=== PATIENT | female | born 1935 | race Caucasian/White ===

== ENCOUNTER → 2016-06-30 | Outpatient (CLI) | payer MEDICARE, OTHER, MEDICAID ==
[~2016-06-30] MED LIST: AC500T; ACHD5005 PO; ALPR.25T; ALPR0.254 PO; ALPR0.2550 PO; ALPR2TAB4; AMIO200T10; AMIO200T2 PO; AMIODARONE 200 MG; AMLO10TA82 PO; AMLO5TAB2; AMLO5TAB2 PO; ASP325T PO; ASP81TEC PO; ASPI-892 PO; ASPIRIN; ATEN50TA; ATEN50TA PO; BSP10T PO; BUSP15TA60 PO; BUSPIRONE HCL 15 MG PO; BUTA1CAP45 PO; CEFU500T5 PO; CHOL2000 PO; CHOL5000 PO; CLCX200C; CPR500T; CYAN100053 INJ; CYCL10TA9; CYCL10TA9 PO; DABI150C5 PO; DIGO125T PO; DNPZ10T; DNPZ10T PO; FRSM20T; FURO20TA4; FURO40TA4 PO; HYDR-3812 PO; IBP600T1; LEVO125T6 PO; LEVO150T6 PO; LEVO50TA4; LEVO50TA4 PO; LIOT5TAB3 PO; LOSA100T16; LOSA100T16 PO; LOSA100T7 PO; LSRT50T; LVT.05T; MECL-106 PO; MECL-124; MECL-124 PO; MELO-195 PO; METO-333 PO; METO10TA3; METO50TA2 PO; METO5TAB75 PO; NF-LOVAZAC PO; NFPRILOC40 PO; OMEG1CAP PO; OMEP-10; OMEP20CA6; OMEP40CA36 PO; ONDA4TAB8 PO; PANT40TA2 PO; POTA20TA15 PO; PRM25T; PROP1TAB77; SERT100T; SERT100T PO; SERT50TA9 PO; SOTA120T PO; SOTA120T23 PO; SUCR1TAB PO; SULF1TAB38 PO; TPR25T PO; TRAM50TA2 PO; TRM50T PO; TRZ50T PO; TYLENOL ES; WRF2.5T; WRF5T
--- OUTSIDE RECORDS SUMMARY | 2016-06-30 07:38 | XMS REPORT | Continuity of Care Document ---
Author Author [facility] Organization [facility] Address Unknown Phone Unavailable Care Team Providers Care Shuttle Driver Name Role Phone Dagmar Lopes PCP [phone] Source Comments Some departments are not documenting in the electronic medical record. If you do not see the information that you expected, contact Release of Information in the Health Information Management department at [phone] for further assistance in locating additional records.[facility] Active Allergies and Adverse Reactions Allergen Noted Date Severity Reactions Comments Codeine 12/01/2008 NAUSEA AND VOMITING Morphine 12/01/2008 NAUSEA AND VOMITING Pcn 12/31/2015 Low UNKNOWN Current Medications Prescription Sig. Disp. Refills Start End Date Status Date donepezil (ARICEPT) 10 mg Take 10 mg by mouth At Active tablet Bedtime Daily. alprazolam (XANAX) 0.25 Take 0.25 mg by mouth Active mg tablet twice daily as needed. losartan (COZAAR) 100 mg Take 100 mg by mouth Active tablet Daily. meloxicam(+) (MOBIC) 15 Take 15 mg by mouth Active mg tablet daily. traMADol (ULTRAM) 50 mg Take 50 mg by mouth every Active tablet 6 hours as needed. [place]-3 Acid Ethyl Esters Take 1 Cap by mouth four 360 Cap 2 04/11/20 Active (LOVAZA) 1 gram cap times daily. 12 Calcium Carbonate-Vitamin Take 1 Tab by mouth Active D3 (VITAMIN D-3) daily. 180-5,000 mg-unit Tab sertraline (ZOLOFT) 50 mg Take 50 mg by mouth Active tablet daily. potassium chloride SR Take 20 mEq by mouth Active (K-DUR) 20 mEq tablet daily. sucralfate (CARAFATE) 1 Take 1 g by mouth at Active gram tablet bedtime daily. furosemide (LASIX) 40 mg Take 40 mg by mouth Active tablet daily. NYSTATIN (BULK) MISC Use 200 mg as directed as Active Needed. meclizine (ANTIVERT) 25 Take 25 mg by mouth as Active mg tablet Needed. metoprolol (LOPRESSOR) 25 Take 0.5 Tabs by mouth 180 Tab 3 07/08/19 Active mg tablet twice daily. 14 digoxin (LANOXIN) 125 mcg Take 1 Tab by mouth every 90 Tab 07/08/19 Active tablet 48 hours. 14 amLODIPine (NORVASC) 5 mg Take 5 mg by mouth daily. Active tablet dabigatran (PRADAXA) 150 Take 150 mg by mouth Active mg capsule twice daily. levothyroxine (SYNTHROID) Take 150 mcg by mouth Active 150 mcg tablet daily. BUSPIRONE HCL (BUSPAR PO) Take 15 mg by mouth twice Active daily. liothyronine (CYTOMEL) 5 Take 5 mcg by mouth twice Active mcg tab daily. topiramate (TOPAMAX) 25 Take 25 mg by mouth twice Active mg tablet daily. Erythromycin 250 mg cpDR Take 1 Cap by mouth three Active times daily before meals. pantoprazole DR Take 40 mg by mouth twice Active (PROTONIX) 40 mg tablet daily. promethazine (PHENERGAN) Take 25 mg by mouth every Active 25 mg tablet 6 hours as needed for Nausea. amiodarone (CORDARONE) Take 0.5 Tabs by mouth 45 Tab 3 12/31/19 Active 200 mg tablet daily. 16 Active Problems Problem Noted Date Chest pain 07/01/2014 Overview: 05/21/14: Left heart cath: LV pressure 125/11, end-diastolic pressure of 11, aortic pressure 112/50, mean of 75. Ascending thoracic aortic aneurysm measuring up to 4.6cm. 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 Small vessel disease distally in the LAD and right coronary artery. Normal left vent size and systolic function. EF 60%. 05/08/14: Echo 2D: Mild left vent hypertrophy noted diffusely. Slightly prominent left vent compared to the previous study of 2011. Left atrial dilation. Mild to moderate aortic regurg. Mild mitral regurg and mild tricuspid regurg. Estimated pulmonary artery pressure of 35mmHg. 05/05/14: Stress Test: Tolerated, Mild reversible ischemia at the basal to mid inferolateral wall. Normal left vent size with good EF 65% Hiatal hernia 03/13/2013 Bradycardia 10/18/2011 Overview: 10-18-11 Medtronic dual chamber PPM implanted by Dr. Sheila Peralta Sotalol initiation 10-18-11 Near syncope 09/16/2011 Overview: 09/14/11 hospital admission to [facility] in [place], [place]. Reveal device 9529 implanted by Allyn Petit MD. Cardiac device in situ, other 08/18/2011 Overview: 09/16/11 Reveal device 9529, Medtronic. Hypertension Hyperlipidemia Overview: 09/14/2011 Lipid Profile: Cholesterol: 171, Triglyceride: 132, HDL: 39, LDL: 106 Paroxysmal atrial fibrillation (HCC) Overview: Hx of brief AF, CHADS score 2, ASA Hypothyroidism Dementia Anxiety Resolved Problems Problem Noted Date Resolved Date Chest pain 09/16/2011 10/18/2011 Overview: 2002 Cardiac cath: mLAD 30%; mRCA 40-50%, diffuse plaques also. Medical treatment, started Plavix. 09/14/11 Admitted to [facility] ( [facility] [place]) with CP & palpitations. Stress test Lexiscan Myoview) showed no ischemia. EF 65% Echocardiogram: EF 70%. Mild LVH. La size 4.3cm. Mitral valve with myxomatous degeneration, mild MR. Palpitations 10/20/2011 Lower GI bleeding 10/18/2011 Most Recent Encounters Date Type Specialty Providers Description 06/23/2016 Documentation Cardiology Shalini Tinajero Labs Only - CMP, Lipid 06/15/2016 Telephone Cardiology Belia Valero RN Patient Questions About Implanted Device 05/17/2016 Telephone Cardiology Annie Marie LPN Remote Monitoring Questions - Would like results 04/01/2016 Hospital Cardiology Marty Trejo MD Encounter Social History Tobacco Use Types Packs/Day Years Used Date Never Smoker Smokeless Tobacco: Never Used Alcohol Use Drinks/Week oz/Week Comments No Last Filed Vital Signs Vital Sign Reading Time Taken Blood Pressure 110/70 12/31/2015 10:53 AM CDT Pulse 71 12/31/2015 10:53 AM CDT Temperature 36.5 C (97.7 F) 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 Respiratory Rate 18 03/07/2013 2:25 PM CDT Height 1.676 m (5' 5.98") 12/31/2015 10:53 AM CDT Weight 84.052 kg (185 lb 4.8 oz) 12/31/2015 10:53 AM CDT Body Mass Index 29.92 12/31/2015 10:53 AM CDT Oxygen Saturation 98% 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 Plan of Care Date Type Specialty Providers Description 07/11/2016 Appointment Cardiology Marty Trejo MD [address] [employer] [facility] [address] [place] [address] [phone] (Fax) 11/18/2016 Appointment Cardiology Marty Trejo MD [address] [employer] [facility] [address] [place] [address] [phone] (Fax) 11/18/2016 Appointment Cardiology Marty Trejo MD [address] [employer] [facility] [address] [place] [address] [phone] (Fax) Health Maintenance Due Date Last Done Comments Physical (Comprehensive) 1941 Exam Pertussis Vaccine 1945 Tetanus Vaccine 1951 Shingles Vaccine 1994 Osteoporosis Screening 1999 Prevnar/Pneumovax (#1) 1999 Influenza Vaccine 02/18/2016 Results from Last 3 Months LIVER FUNCTION PANEL (06/22/2016) Component Value Range Total Bilirubin 1.1 Bilirubin, Direct 0.2 Albumin 4.2 Alk Phosphatase 54 AST (SGOT) 24 ALT (SGPT) 30 5-26 Total Protein 7.0 Specimen Blood DEVICE EVALUATION - REMOTE [facility] (04/14/2016 11:11 AM) Component Value Range Generator Model # REVO MRI RVDR01 Generator Serial # [id number] Generator Implnat Date 10/18/2011 FÉLIX/EOL Indicator ENVIRONMENTAL REMEDIATION SPECIALIST=2.81V Generator Professor Of Biblical Studies Medtronic Generator Investigational No Wireless Generator No Device Type DDD-PM Atrial Lead Model # CAPSUREFIX MRI LV SensorsSCAN 5086-52cm Atrial Lead Serial # [id number] Atrial Lead Implant Date 10/18/2011 Atrial Lead Diaph. 10 Stimulation Atrial Lead Professor Of Biblical Studies Medtronic Atrial Lead No Investigational Atrial Lead Fixation active fixation Atrial Lead Location right atrial appendage Atrial Lead Pin Connector IS1 Atrial Lead Polarity Bipolar RV Lead Model # CAPSUREFIX Inivata SURESCAN 5086-58cm RV Lead Serial # [id number] RV Lead Implant Date 10/18/2011 RV Lead Diaph. 10 Stimulation RV Lead Professor Of Biblical Studies Medtronic RV Lead Investigational No RV Lead Fixation active fixation RV Lead Location RV low septum RV Lead Pin Connector ICD IS1 Device Mode AAIR/DDDR Lower Rate Limit 70 Upper Rate Limit 130 Sensor Rate Limit 130 Pace AV Delay 180 Sense AV Delay 150 VT Monitor 150 Mode Switch (bpm) >150 High V Rate Detect >150 Mode Switch Status On Device Implanted By Ernesto Sosa M.D. Pacemaker Dependant No Date of Last Programming 12/31/15 Next Programming Check Jun 2016 Due Date of Last 12/31/15 Interrogation HF Patient No Date of Last Remote Check 04/01/16 Next Remote Check Due 06/2016 Remote Monitoring? Yes EP Device Followed by Dr. Trejo Name EP Device Followed By MAC Device [place] Carelink Express Transmitter Compatible Remote Check? Yes Narrative Current monitoring period 04/01/16 - 07/01/16 [04/14/2016 12:30:46 PM - NIKKY ALTAMIRANO] Scheduled carelink remote transmission received 04/01/16, reviewed today. Dual chamber ICD interrogation. Presenting EGM shows AP VS at 90 bpm. Full report uploaded for more detailed review as needed (see attached) Events noted 12/31/15: Atrial: 20 AT/AF monitored episodes and 12 treated episodes (successfully terminated 91.7%), <0.1% burden. Most recent on 03/31/16 and longest on 01/27/16 lasting 15 min 36. Markers/EGM's appear to show AFib/ Flutter, some AT with V rates <100bpm 95% of time. Med list shows Amio and Pradaxa. Amio dose decreased in December d/t elevated LFT.- Will need to monitor AF [place]. Ventricular:none Yearly OV scheduled sometime in December 2016 with MPE. Will route to MPE for review and co-sign. [04/14/2016 2:42:55 PM - JYOTI KUMAR]
--- NOTE | 2016-06-30 09:24 | Diagnostic Imaging Report ---
EXAMINATION: PA and lateral views of the chest. INDICATION: Check pacemaker before performing MRI. FINDINGS: The pacemaker has markers are compatible with MRI safe pacemaker as well as MRI safe leads. Confirmed with the [employer] company rep. There is an increased indeterminate opacity in the upper right lung. The left lung appears clear. The heart size is mildly enlarged. No effusion. The mediastinum and ysabel appear unremarkable. IMPRESSION: Indeterminate opacity in the upper right lung. CT evaluation is recommended. The findings were discussed with nurse practitioner Brianna Otoole by Dr. Ludwig at time of dictation. Dictated by: Dictated on workstation # [id number]
--- NOTE | 2016-06-30 12:37 | Diagnostic Imaging Report ---
PROCEDURE: MRI right joint lower extremity without contrast. TECHNIQUE: Multiplanar, multisequence non contrast-enhanced MRI of the right ankle was accomplished. INDICATION: Ankle pain and swelling. COMPARISONS: None available. FINDINGS: TENDONS: Mild tendinopathy of the distal Achilles tendon which remains intact. Peroneus longus tendon is intact. Chronic partial-thickness split longitudinal tear of the peroneus brevis, which is otherwise intact distally. Posterior tibialis, flexor digitorum longus, and flexor hallucis longus are intact. The anterior tibialis, extensor hallucis longus, extensor digitorum longus, and peroneus tertius tendons are intact. LIGAMENTS: Anterior and posterior tibiofibular ligaments are intact. Anterior talofibular, calcaneofibular, and posterior talofibular ligaments are normal. Medial deltoid ligamentous complex is normal. The spring ligament is mildly thickened but remains intact. BONES AND CARTILAGE: No osteochondral lesion of the talar dome. Mild degenerative changes in the posterior subtalar facet. [id number] degenerative changes at the second tarsometatarsal articulation with subchondral cystic change and proliferative osteophytosis. SOFT TISSUES: Mild low-intensity thickening of the central insertional cord of the plantar fascia indicative of chronic plantar fasciitis. No abnormal soft tissue scar/fibrosis within the tarsal canal/sinus tarsi or tarsal tunnel. No ankle joint effusion. Nonspecific subcutaneous soft tissue edema and swelling on the lateral ankle which corresponds to patient's area of concern. IMPRESSION: 1. 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 No associated tenosynovitis. 2. Nonspecific soft tissue swelling and subcutaneous edema on the lateral ankle, which corresponds to area of concern. 3. 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 There are less advanced degenerative changes at the other tarsometatarsal joints as well as in the posterior subtalar facet. Dictated by: Dictated on workstation # [id number]
== END ==
LOC: RAD 07:34
PROVIDERS: ATTEND Podiatrist
DX: D17.79 Benign lipomatous neoplasm of other sites (principal)
CPT/HCPCS: 71020; 73721

== ENCOUNTER → 2016-07-05 | Outpatient (CLI) | payer MEDICARE, OTHER, MEDICAID ==
--- OUTSIDE RECORDS SUMMARY | 2016-07-05 09:20 | XMS REPORT | Continuity of Care Document ---
Author Author [facility] Organization [facility] Address Unknown Phone Unavailable Care Team Providers Care Highway Worker Name Role Phone Dagmar Lopes PCP [phone] Source Comments Some departments are not documenting in the electronic medical record. If you do not see the information that you expected, contact Release of Information in the Health Information Management department at [phone] for further assistance in locating additional records.[facility] Active Allergies and Adverse Reactions Allergen [...] every Active tablet 6 hours as needed. [place]-3 Acid Ethyl Esters Take 1 Cap by [...] syncope 09/16/2011 Overview: 09/14/11 hospital admission to [facility] in [place], [place]. Reveal device 9529 implanted by Allyn [...] Medical treatment, started Plavix. 09/14/11 Admitted to [facility] ( [facility]) with CP & palpitations. Stress test Lexiscan [...] 36.5 C (97.7 F) 05/01/2013 11:23 AM INTERFACE ANALYST Respiratory Rate 18 03/07/2013 2:25 PM CDT Height 1.676 m (5' 5.98") 12/31/2015 10:53 AM CDT Weight 84.052 kg (185 lb 4.8 oz) 12/31/2015 10:53 AM CDT Body Mass Index 29.92 12/31/2015 10:53 AM CDT Oxygen Saturation 98% 05/01/2013 11:23 AM INTERFACE ANALYST Plan of Care Date Type Specialty Providers Description 07/11/2016 Appointment Cardiology Marty Trejo MD [address] [facility] [address] [place] [address] [phone] (Fax) 11/18/2016 Appointment Cardiology Marty Trejo MD [address] [facility] [address] [place] [address] [phone] (Fax) 11/18/2016 Appointment Cardiology Marty Trejo MD [address] [facility] [address] [place] [address] [phone] (Fax) Health Maintenance Due Date Last Done [...] 7.0 Specimen Blood DEVICE EVALUATION - REMOTE [facility] (04/14/2016 11:11 AM) Component Value Range Generator Model # REVO MRI RVDR01 Generator Serial # [id number] Generator Implnat Date 10/18/2011 FÉLIX/EOL Indicator CRADLE SLIDE MAKER=2.81V Generator [employer] Ware Dipper Medtronic Generator Investigational No Wireless Generator No Device Type DDD-PM Atrial Lead Model # CAPSUREFIX MRI SURESCAN 5086-52cm Atrial Lead Serial # [id number] Atrial Lead Implant Date 10/18/2011 Atrial Lead Diaph. 10 Stimulation Atrial Lead Bisque Ware Dipper Medtronic Atrial Lead No Investigational Atrial Lead Fixation active fixation Atrial Lead Location right atrial appendage Atrial Lead Pin Connector IS1 Atrial Lead Polarity Bipolar RV Lead Model # CAPSUREFIX MRI SURESCAN 5086-58cm RV Lead Serial # [id number] RV Lead Implant Date 10/18/2011 RV Lead Diaph. 10 Stimulation RV Lead Bisque Ware Dipper Medtronic RV Lead Investigational No RV Lead [...] Name EP Device Followed By MAC Device [place] Carelink Express Transmitter Compatible Remote Check? Yes [...] elevated LFT.- Will need to monitor AF [place]. Ventricular:none Yearly OV scheduled sometime in December 2016 with MPE. Will route to MPE for review and co-sign. [04/14/2016 2:42:55 PM - JYOTI KUMAR]
--- NOTE | 2016-07-05 11:27 | Diagnostic Imaging Report ---
PROCEDURE: US Thyroid. TECHNIQUE: Multiple real-time grayscale images were obtained of the thyroid in various projections. INDICATION: Thyroid nodule. COMPARISON: 06/30/2015. FINDINGS: The right lobe of the thyroid measures 3.3 x 1.4 x 1.2 cm. There are three subcentimeter nodules on the right with the largest measuring up to 0.8 cm. The left lobe of the thyroid measures 3.1 x 1 x 1 cm. There is a single nodule on the left measuring 0.6 cm. IMPRESSION: There are multiple bilateral subcentimeter thyroid nodules. These are nonspecific, however, and are likely incidental adenomas. There is an additional 5 mm nodule on today's exam that was not present on the prior exam. Dictated by: Dictated on workstation # [id number]
--- NOTE | 2016-07-05 12:44 | Diagnostic Imaging Report ---
PROCEDURE: CT chest without contrast. TECHNIQUE: Multiple contiguous axial images were obtained through the chest without the use of intravenous contrast. Originally, the exam was ordered with contrast but contrast could not be administered due to poor venous access. INDICATION: Ascending aortic aneurysm. FINDINGS: The previous CTA chest exam of 10/22/2014 noted aneurysmal dilatation of the ascending aorta. The aorta measured approximately 4.5 cm in maximum AP diameter. On this exam, the aorta again measures 4.5 cm in maximum AP diameter and 4.6 cm in maximum transverse diameter. The overall appearance of the aorta has not changed significantly. There is no periaortic fluid collection to suggest an acute abnormality. The heart is enlarged and there are coronary artery calcifications evident. The large hiatal hernia seen on the prior study is again evident and no different. There is no mediastinal or hilar adenopathy. This exam is limited in the evaluation of adenopathy however due to the absence of intravenous contrast. The thyroid gland was not well visualized. There is no obvious breast mass. The lungs are generally clear and well aerated. There is no sign of failure, pneumonia, or of a pleural effusion to suggest an acute abnormality. The sections through the upper abdomen again show the large 6.7 cm cyst associated with the left kidney. This finding seems similar to the prior exam. There is excretion of the contrast by both kidneys. Most likely, this is due to a small amount of contrast which was administered. The bone window show no evidence for fracture or for destructive lesion. The severe degenerative changes involving the mid and lower thoracic spine seen previously are again evident and have not progressed. There is a dual-lead pacemaker in place and the pacer leads seem to be in good position. IMPRESSION: 1. There is no acute cardiopulmonary abnormality identified. 2. The aneurysm of the ascending aorta seen previously appears stable. 3. There is cardiomegaly and coronary artery disease. 4. There is a large hiatal hernia. Dictated by: Dictated on workstation # [id number]
== END ==
LOC: RAD 09:17
PROVIDERS: ATTEND Family Medicine
DX: E04.2 Nontoxic multinodular goiter (principal); I71.2 Thoracic aortic aneurysm, without rupture; I51.7 Cardiomegaly; I25.10 Atherosclerotic heart disease of native coronary artery without angina pectoris; K44.9 Diaphragmatic hernia without obstruction or gangrene
CPT/HCPCS: 71250; 76536

== ENCOUNTER → 2016-07-05 | Outpatient (CLI) | payer MEDICARE, OTHER, MEDICAID ==
[~2016-07-05] MED LIST changes: +CATHETER FLUSH 10 ML SYR IV PRN; +IOHEXOL 350 MG/ML 150 ML (OMNIPAQUE 350) VIAL IV ONE; +NS 100 ML (IVPB) BAG IV ONE
--- OUTSIDE RECORDS SUMMARY | 2016-07-05 09:16 | XMS REPORT | Continuity of Care Document ---
Author Author [facility] Organization [facility] Address Unknown Phone Unavailable Care Team Providers Care Veterinary Pathologist Name Role Phone Dagmar Lopes PCP [phone] Source Comments Some departments are not documenting in the electronic medical record. If you do not see the information that you expected, contact Release of Information in the Health Information Management department at [phone] for further assistance in locating additional records.[facility] Active Allergies and Adverse Reactions Allergen Noted [...] every Active tablet 6 hours as needed. [place]-3 Acid Ethyl Esters Take 1 Cap by [...] syncope 09/16/2011 Overview: 09/14/11 hospital admission to [facility] in [place], [place]. Reveal device 9529 implanted by Allyn [...] Medical treatment, started Plavix. 09/14/11 Admitted to [facility] ( [facility]) with CP & palpitations. 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 Respiratory Rate 18 03/07/2013 2:25 PM CDT Height 1.676 m (5' 5.98") 12/31/2015 10:53 AM CDT Weight 84.052 kg (185 lb 4.8 oz) 12/31/2015 10:53 AM CDT Body Mass Index 29.92 12/31/2015 10:53 AM CDT Oxygen Saturation 98% 05/01/2013 11:23 AM MACHINE MOLDER Plan of Care Date Type Specialty Providers Description 07/11/2016 Appointment Cardiology Marty Trejo MD [address] [facility] [address] [place] [address] [phone] (Fax) 11/18/2016 Appointment Cardiology Marty Trejo MD [address] [facility] [address] [place] [address] [phone] (Fax) 11/18/2016 Appointment Cardiology Marty Trejo MD [address] [facility] [address] [place] [address] [phone] (Fax) Health Maintenance Due Date Last Done [...] 7.0 Specimen Blood DEVICE EVALUATION - REMOTE [facility] (04/14/2016 11:11 AM) Component Value Range Generator Model # REVO MRI RVDR01 Generator Serial # [id number] Generator Implnat Date 10/18/2011 FÉLIX/EOL Indicator ELECTRICAL ESTIMATOR=2.81V Generator X Ray Tech Medtronic Generator Investigational No Wireless Generator No Device Type DDD-PM Atrial Lead Model # CAPSUREFIX MRI SURESCAN 5086-52cm Atrial Lead Serial # [id number] Atrial Lead Implant Date 10/18/2011 Atrial Lead Diaph. 10 Stimulation Atrial Lead X Ray Tech Medtronic Atrial Lead No Investigational Atrial Lead Fixation active fixation Atrial Lead Location right atrial appendage Atrial Lead Pin Connector IS1 Atrial Lead Polarity Bipolar RV Lead Model # CAPSUREFIX MRI SURESCAN 5086-58cm RV Lead Serial # [id number] RV Lead Implant Date 10/18/2011 RV Lead Diaph. 10 Stimulation RV Lead X Ray Tech Medtronic RV Lead Investigational No RV Lead [...] Name EP Device Followed By MAC Device [place] Carelink Express Transmitter Compatible Remote Check? Yes [...] elevated LFT.- Will need to monitor AF [place]. Ventricular:none Yearly OV scheduled sometime in December 2016 with MPE. Will route to MPE for review and co-sign. [04/14/2016 2:42:55 PM - JYOTI KUMAR]
== END ==
LOC: RAD 09:11
PROVIDERS: ATTEND Physician Assistant
DX: I71.2 Thoracic aortic aneurysm, without rupture (principal)

== ENCOUNTER 2016-08-20 19:18 | Emergency (ER) | payer MEDICARE, OTHER, MEDICAID ==
[~2016-08-20] VITALS: Ht 167.6 cm; Wt 83.9 kg
[~2016-08-20 19:18] MED LIST changes: -CATHETER FLUSH 10 ML SYR IV PRN; -HYDR-3812 PO; -IOHEXOL 350 MG/ML 150 ML (OMNIPAQUE 350) VIAL IV ONE; -NS 100 ML (IVPB) BAG IV ONE
--- NOTE | 2016-08-20 22:04 | ED General ---
General Chief Complaint: Skin/Wound Problems Stated Complaint: BLEEDING AT SURGICAL SITE Nursing Triage Note: pt reports dr luevano removed a lipoma from right lateral foot on Monday. Wound has been oozing since then, but became more severe today. Nursing Sepsis Screen: No Definite Risk Source of Information: Patient Exam Limitations: No Limitations History of Present Illness Time Seen by Provider: 22:04 Initial Comments 81-year-old female patient presents to the emergency department with complaints of bleeding from the incision site of the right ankle. Patient reports having surgery by Dr. Luevano in which a lipoma was removed from the right lateral ankle on 08/16/16. Patient states she is scheduled to see Dr. Tawanna ross on September 01 for follow-up. Has not remove the dressing as she was instructed to leave this intact. Timing/Duration: 5-6 Days, Getting Worse Modifying Factors: worse with Other (denies modifying factors.) Allergies and Home Medications Allergies Coded Allergies: codeine (Verified Allergy, Unknown, 09/09/08) morphine (Verified Allergy, Unknown, 09/09/08) Home Medications Alprazolam 0.25 Mg Tablet 0.25 MG PO DAILY PRN PRN ANXIETY (Reported) Amiodarone HCl 200 Mg Tablet 200 MG PO BID (Reported) Amlodipine Besylate 5 Mg Tablet 5 MG PO DAILY (Reported) Buspirone HCl 15 Mg Tablet 15 MG PO BID (Reported) Cholecalciferol 5,000 Unit Capsule 5,000 UNIT PO DAILY (Reported) Cyanocobalamin 1,000 Mcg/Ml Vial 1,000 MCG INJ EVERY OTHER MONDAY (Reported) Dabigatran Etexilate Mesylate 150 Mg Capsule 150 MG PO BID (Reported) Digoxin 125 Mcg Tablet 125 MCG PO WED, MON, SUN, MON (Reported) Donepezil Hcl 10 Mg Tablet 10 MG PO HS (Reported) Furosemide 40 Mg Tablet 40 MG PO DAILY (Reported) Hydrocodone/Acetaminophen 1 Each Tablet #30 1 EACH PO Q4H PRN PRN PAIN Prescribed by: TAD STONE on 08/21/16 1151 Levothyroxine Sodium 150 Mcg Tablet 150 MCG PO DAILY (Reported) Liothyronine Sodium 5 Mcg Tablet 5 MCG PO BID (Reported) Losartan Potassium 100 Mg Tablet 100 MG PO DAILY @ 1230 (Reported) Meclizine HCl 25 Mg Tablet 25 MG PO BID PRN PRN VERTIGO (Reported) Meloxicam 15 Mg Tablet 15 MG PO DAILY (Reported) Metoclopramide HCl 5 Mg Tablet #120 5 MG PO Q6H Prescribed by: MINO GARCIA on 07/15/15 1320 Metoprolol Tartrate 50 Mg Tablet 25 MG PO BID (Reported) TAKES 1/2 (50MG) TABLET [place]-3 Acid Ethyl Esters 1 Gm Capsule 1 GM PO QID (Reported) Ondansetron 4 Mg Tab.rapdis 4 MG PO Q6H PRN PRN NAUSEA/VOMITING (Reported) Pantoprazole Sodium 40 Mg Tablet.dr #90 40 MG PO BID Prescribed by: MINO GARCIA on 07/15/15 1320 Potassium Chloride 20 Meq Tab.prt.sr 20 MEQ PO DAILY @ 1230 (Reported) Sertraline Hcl 50 Mg Tablet 50 MG PO DAILY (Reported) Sucralfate 1 G Tablet 1 GM PO QID (Reported) Topiramate 25 Mg Tablet 25 MG PO BID (Reported) Tramadol Hcl 50 Mg Tab 50-100 MG PO Q6H PRN PRN PAIN (Reported) Constitutional: No chills, No fever, No malaise Respiratory: no symptoms reported Cardiovascular: no symptoms reported Gastrointestinal: no symptoms reported Musculoskeletal: other (mild pain at the laceration site.) Skin: see HPI Psychiatric/Neurological: No Symptoms Reported All Other Systems Reviewed Negative Unless Noted: Yes (Negative excepted noted.) Past Ospoaxt-Odtyyy-Rkrewm Hx Patient Social History Alcohol Use: Denies Use Recreational Drug Use: No Smoking Status: Never a Smoker Recent Foreign Travel: No Contact w/Someone Who Travel: No Recent Infectious Disease Expo: No Recent Hopitalizations: Yes (lipoma removed from right foot) Immunizations Up To Date Tetanus Booster (TDap): Less than 5yrs Date of Pneumonia Vaccine: May 21, 2011 Date of Influenza Vaccine: Mar 12, 2015 Seasonal Allergies Seasonal Allergies: Yes Surgeries HX Surgeries: Yes (bilateral hips & bilateral knees replacement, hiatal hernia , lipoma excision right ankle) Surgeries: Abdominal, Gallbladder, Hysterectomy, Orthopedic, Pacemaker Respiratory Hx Respiratory Disorders: No Cardiovascular Hx Cardiac Disorders: Yes (CHF, sinus node dysfunction s/p pacemaker) Cardiac Disorders: Atrial Fibrillation, High Cholesterol, Hypertension Neurological Hx Neurological Disorders: Yes Neurological Disorders: Dementia Reproductive System Hx Reproductive Disorders: No Sexually Transmitted Disease: No HIV/AIDS: No Genitourinary Hx Genitourinary Disorders: No Genitourinary Disorders: Kidney Stones Gastrointestinal Hx Gastrointestinal Disorders: Yes (diverticulitis ) Gastrointestinal Disorders: Gastroesophageal Reflux, Hiatal Hernia Musculoskeletal Hx Musculoskeletal Disorders: Yes (osteoarthritis) Musculoskeletal Disorders: Arthritis Endocrine Hx Endocrine Disorders: Yes (HYPOGLYCEMIA) Endocrine Disorders: Hypothyroidsim HEENT HX ENT Disorders: No Cancer Hx Cancer: No Psychosocial Hx Psychiatric Problems: Yes Behavioral Health Disorders: Anxiety, Depression Integumentary HX Skin/Integumentary Disorder: No Blood Transfusions Hx Blood Disorders: No Reviewed Nursing Assessment Reviewed/Agree w Nursing PMH: Yes Family Medical History Significant Family History: Heart Disease Physical Exam Vital Signs Vital Sign - Last 12Hours 08/20/16 08/20/16 20:06 22:46 Temp 97.7 Pulse 83 Resp 20 B/P 120/74 Pulse Ox 94 Capillary Refill : Less Than 3 Seconds General Appearance: No Apparent Distress WD/WN Cardiovascular: Normal Peripheral Pulses Extremity: Normal Capillary Refill Other (slight serosanguineous drainage from the sutures of the right lateral ankle.. No active drainage from the incision. mild Hematoma noted. Mild bruising of the right dorsal foot. Evidence of cellulitis. Incision intact. Soft tissue tenderness noted.) Neurologic/Psychiatric: Alert Oriented x3 No Motor/Sensory Deficits Normal Mood/Affect Skin: Other (slight serosanguineous drainage from the sutures of the right lateral ankle.. No active drainage from the incision. mild Hematoma noted. Mild bruising of the right dorsal foot. Evidence of cellulitis. Incision intact. Soft tissue tenderness noted.) Progress/Results/Core Measures Results/Orders Vital Signs/I&O Blood Pressure Mean: 89 Departure Communication Progress Notes Wound cleansed with chlorhexidine and sterile saline. 4 x 4 gauze applied with 3 inch Palomo wrap 2. Patient instructed to elevate the foot at home and to apply ice. I've advised the patient to change the dressing daily with gauze and Palomo wrap's. Patient instructed to follow-up with Dr. Luevano as previously scheduled or sooner if needed. I have advised the patient to return to the emergency department tomorrow for wound check. All return precautions were discussed with the patient as described in the discharge instructions of this report. Patient voices understanding and agrees with the treatment plan. Impression Impression: Primary Impression: Draining postoperative wound Additional Impression: Postoperative hematoma Disposition: 01 HOME, SELF-CARE Condition: Improved Departure-Patient Inst. Decision time for Depature: 22:40 Referrals: CARTER BADILLO MD (PCP/Family) Primary Care Physician Patient Instructions: Wound Care (DC) Add. Discharge Instructions: All discharge instructions reviewed with patient and/or family. Voiced understanding. Continue usual home medications. Elevate the right foot on pillows above the level of the heart. Ice pack applied to the right ankle/foot to decrease bleeding. Change the dressings in 1-2 times daily with gauze and Palomo wrap's. Shower with antibacterial soap. Follow-up with Dr. Luevano as previously scheduled or sooner if needed. Return to the emergency department for wound check if needed. Return immediately to the emergency department for worsened pain, swelling, redness, drainage, fever, or any other concerns. TAD STONE Aug 20, 2016 22:04
[2016-08-20 22:46] VITALS: BP 136/86
[2016-08-21] MEDS ORDERED: HYDR-3812 PO (11:51)
== END 2016-08-20 22:45 | disposition home or self-care (01) ==
LOC: EDUNIT# 19:18 → ER 19:20
DX: L76.31 Postprocedural hematoma of skin and subcutaneous tissue following a dermatologic procedure (principal); T81.4XXA Infection following a procedure, initial encounter; I10 Essential (primary) hypertension; Z79.899 Other long term (current) drug therapy; Z95.0 Presence of cardiac pacemaker

== ENCOUNTER 2016-08-21 11:21 | Emergency (ER) | payer MEDICARE, OTHER, MEDICAID ==
[~2016-08-21] VITALS: Ht 160 cm; Wt 68.0 kg
--- OUTSIDE RECORDS SUMMARY | 2016-08-21 11:26 | XMS REPORT | Continuity of Care Document ---
Author Author [facility] Organization [facility] Address Unknown Phone Unavailable Care Team Providers Care Cytotechnologist Name Role Phone Dagmar Lopes PCP [phone] Source Comments Some departments are not documenting in the electronic medical record. If you do not see the information that you expected, contact Release of Information in the Health Information Management department at [phone] for further assistance in locating additional records.[facility] Active Allergies and Adverse Reactions Allergen [...] every Active tablet 6 hours as needed. [place]-3 Acid Ethyl Esters Take 1 Cap by [...] syncope 09/16/2011 Overview: 09/14/11 hospital admission to [facility] in [place], [place]. Reveal device [id number] implanted by [employer] [...] Medical treatment, started Plavix. 09/14/11 Admitted to [facility] ( [facility]) with CP & palpitations. Stress test Lexiscan Myoview) showed no ischemia. EF 65% Echocardiogram: EF 70%. Mild LVH. La size 4.3cm. Mitral valve with myxomatous degeneration, mild MR. Palpitations 10/20/2011 Lower GI bleeding 10/18/2011 Most Recent Encounters Date Type Specialty Providers Description 07/25/2016 Telephone Cardiology Annie Marie LPN Medication Question - Having surgery 07/11/2016 Hospital Cardiology Marty Trejo MD Encounter 06/23/2016 Documentation Cardiology Shalini Tinajero Labs Only - CMP, Lipid 06/15/2016 Telephone Cardiology Belia Valero RN Patient Questions About Implanted Device Social History Tobacco Use Types Packs/Day Years Used Date Never Smoker Smokeless Tobacco: Never Used Alcohol Use Drinks/Week oz/Week Comments No Last Filed Vital Signs Vital Sign Reading Time Taken Blood Pressure 110/70 12/31/2015 10:53 AM CDT Pulse 71 12/31/2015 10:53 AM CDT Temperature 36.5 C (97.7 F) 05/01/2013 11:23 AM [employer] Respiratory Rate 18 03/07/2013 2:25 PM CDT Height 1.676 m (5' 5.98") 12/31/2015 10:53 AM CDT Weight 84.052 kg (185 lb 4.8 oz) 12/31/2015 10:53 AM CDT Body Mass Index 29.92 12/31/2015 10:53 AM CDT Oxygen Saturation 98% 05/01/2013 11:23 AM [employer] Plan of Care Date Type Specialty Providers Description 10/10/2016 Appointment Cardiology 11/18/2016 Appointment Cardiology Marty Trejo MD [address] [facility] [address] [place] [address] [phone] (Fax) 11/18/2016 Appointment Cardiology Marty Trejo MD [address] [facility] [address] [place] [address] [phone] (Fax) Health Maintenance Due Date Last Done Comments Physical (Comprehensive) 1941 Exam Pertussis Vaccine 1945 Tetanus Vaccine 1951 Shingles Vaccine 1994 Osteoporosis Screening 1999 Prevnar/Pneumovax (#1) 1999 Influenza Vaccine 02/18/2016 Results from Last 3 Months DEVICE EVALUATION - REMOTE PPM (07/19/2016 10:31 AM) Component Value Range Generator Model # REVO MRI RVDR01 Generator Serial # [id number] Generator Implnat Date 10/18/2011 FÉLIX/EOL Indicator FABRIC DESIGNER=2.81V Generator Multiple Games Dealer [employer] Generator Investigational No Wireless Generator No Device Type DDD-PM Atrial Lead Model # CAPSUREFIX momondoSCAN 5086-52cm Atrial Lead Serial # [id number] Atrial Lead Implant Date 10/18/2011 Atrial Lead Diaph. 10 Stimulation Atrial Lead Multiple [employer] Medtronic Atrial Lead No Investigational Atrial Lead Fixation active fixation Atrial Lead Location right atrial appendage Atrial Lead Pin Connector IS1 Atrial Lead Polarity Bipolar RV Lead Model # CAPSUREFIX momondoSCAN 5086-58cm RV Lead Serial # [id number] RV Lead Implant Date 10/18/2011 RV Lead Diaph. 10 Stimulation RV Lead Multiple Games Dealer Medtronic RV Lead Investigational No RV Lead [...] Mode Switch Status On Device Implanted By Raghuveer Dendi, M.D. Pacemaker Dependant No Date of Last Programming 12/31/15 Next Programming Check Jun 2016 Due Date of Last 12/31/15 Interrogation HF Patient No Date of Last Remote Check 04/01/16 Next Remote Check Due 06/2016 Remote Monitoring? Yes EP Device Followed by Dr. Trejo Name EP Device Followed By MAC Device [place] Carelink Express Transmitter Compatible Narrative Current Monitoring Period: 07/11/16 through 10/08/16 [07/19/2016 10:32:04 AM - RITA GUERRA] Scheduled Carelink transmission received.Device function appears normal. Events noted since 03/19/16: Atrial:3 monitored AT/AF and 19 treated AT/AF events for overall burden 10.7% of time.Pace-terminated events show 31.6% successful.Available EGM's show AF with V-pacing.Pt is on Pradaxa. Ventricular:None. Please see scanned data sheets for further review as needed.Pt is scheduled to follow up on 11/18/16 with MPE at the OP office. LIVER FUNCTION PANEL (06/22/2016) Component Value Range Total Bilirubin 1.1 Bilirubin, Direct 0.2 Albumin 4.2 Alk Phosphatase 54 AST (SGOT) 24 ALT (SGPT) 30 5-26 Total Protein 7.0 Specimen Blood
--- NOTE | 2016-08-21 11:38 | ED Suture Removal/Wound Check ---
Suture/Wound Re-check Suture Removal/Wound Recheck : Progress Patient presents to the emergency department at the instruction of this examiner for wound recheck today. Patient reports there has been no breakthrough drainage of the dressing. Patient does state she is out of her hydrocodone and does not see the orthopedic surgeon until . Physical Exam Vital Signs Vital Sign - Last 12Hours 08/21/16 08/21/16 11:29 11:54 Temp 97.4 Pulse 71 Resp 16 B/P 123/65 Pulse Ox 98 Capillary Refill : General Appearance: WD/WN no apparent distress Skin: ecchymosis (right lateral malleolus and right dorsum foot.) other ( incision intact without evidence of erythema, warmth. There is slight serosanguineous drainage noted from the distal wound. Wound cleansed with chlorhexidine and sterile saline) Departure Communication Progress Notes Patient seen and evaluated. Patient instructed to continue orders as given yesterday in the emergency department. Patient given a prescription for hydrocodone. Wound dressed with 4x4 gauze and two 3 inch leanne wraps. Discharge to home. Impression Impression: Primary Impression: Encounter for wound re-check Disposition: HOME, SELF-CARE Condition: Improved Departure-Patient Inst. Decision time for Depature: 11:38 Referrals: CARTER BADILLO MD (PCP/Family) Primary Care Physician Patient Instructions: Wound Care (DC) Add. Discharge Instructions: All discharge instructions reviewed with patient and/or family. Voiced understanding. Continue home medications. Continue instructions as given to you yesterday in the emergency department. Follow-up with Dr. Bravo as an outpatient as previously scheduled or sooner if needed. Return to the emergency department for worsened pain, swelling, redness, drainage, fever, or any other concerns. Scripts Hydrocodone/Acetaminophen (Hydrocodon -Acetaminophen 5-325)1 Each Tablet1 Each PO Q4H PRN PAIN #30 TAB Ref 0 Prov:TAD STONE 08/21/16 TAD STONE Aug 21, 2016 11:38
[2016-08-21] MEDS ORDERED: HYDR-3812 PO (11:51)
[2016-08-21 11:54] VITALS: BP 123/65
== END 2016-08-21 11:54 | disposition home or self-care (01) ==
LOC: EDUNIT# 11:21 → ER 11:22
DX: T81.4XXA Infection following a procedure, initial encounter (principal)

== ENCOUNTER → 2016-09-16 | Outpatient (CLI) | payer MEDICARE, OTHER, MEDICAID ==
[~2016-09-16] MED LIST changes: +HYDR-3812 PO
--- NOTE | 2016-09-16 10:19 | Diagnostic Imaging Report ---
PA and lateral views of the chest. INDICATION: History of amiodarone therapy. FINDINGS: There is a hiatal hernia with adjacent mild right basilar atelectasis. The heart size is borderline enlarged. There is pulmonary hyperinflation. No effusion or pneumothorax. Mediastinum and ysabel appear unremarkable. Pacemaker with two leads seen. IMPRESSION: COPD. Small hiatal hernia. Dictated by: Dictated on workstation # [id number]
== END ==
LOC: RAD 09:52
PROVIDERS: ATTEND Internal Medicine Cardiovascular Disease
DX: Z51.81 Encounter for therapeutic drug level monitoring (principal); Z79.899 Other long term (current) drug therapy; J44.9 Chronic obstructive pulmonary disease, unspecified; K44.9 Diaphragmatic hernia without obstruction or gangrene
CPT/HCPCS: 71020

== ENCOUNTER 2016-11-07 14:16 | Outpatient (RCR) | payer MEDICARE, OTHER, MEDICAID | END 2016-12-06 16:00 | disposition home or self-care (01) | LOC: WOUNDCARE 14:16 | PROVIDERS: ATTEND Surgery | DX: L97.312 Non-pressure chronic ulcer of right ankle with fat layer exposed (principal); T81.31XA Disruption of external operation (surgical) wound, not elsewhere classified, initial encounter; L92.8 Other granulomatous disorders of the skin and subcutaneous tissue | CPT/HCPCS: 11042; 17250 ==

== ENCOUNTER → 2016-12-28 | Outpatient (CLI) | payer MEDICARE, OTHER, MEDICAID | LOC: RT 14:42 | PROVIDERS: ATTEND Internal Medicine Critical Care Medicine | DX: E66.9 Obesity, unspecified (principal); F41.9 Anxiety disorder, unspecified; F03.90 Unspecified dementia, unspecified severity, without behavioral disturbance, psychotic disturbance, mood disturbance, and anxiety | CPT/HCPCS: 94060; 94726; 94729 ==

== ENCOUNTER → 2017-03-09 | Outpatient (CLI) | payer MEDICARE, OTHER, MEDICAID | LOC: RAD 12:29 | PROVIDERS: ATTEND Nurse Practitioner Family | DX: Z12.31 Encounter for screening mammogram for malignant neoplasm of breast (principal) | CPT/HCPCS: 77067 ==

== ENCOUNTER 2017-06-22 02:27 | Inpatient (IN) | payer MEDICARE, OTHER, MEDICAID ==
[~2017-06-22] VITALS: Ht 165.1 cm; Wt 80.7 kg
[~2017-06-22 02:27] MED LIST changes: -HYDR-3812 PO; +METO50TA15 PO; -METO50TA2 PO
[2017-06-22] MEDS ORDERED: RT-ALBUTEROL SULF 2.5 MG/3 ML PRE-MIX VIAL INH ONE (02:38)
[2017-06-22] MEDS ORDERED: RT-ALBUTEROL SULF 2.5 MG/3 ML PRE-MIX VIAL INH STA ×2 (02:39→03:08)
[2017-06-22] MEDS ORDERED: ONDANSETRON 4 MG/2 ML (SDV) Z0FRAN ONE (02:44)
[2017-06-22] MEDS ORDERED: ONDANSETRON 4 MG/2 ML (SDV) Z0FRAN IVP ONE (02:45)
[2017-06-22] MEDS ORDERED: AZITHROMYCIN INJECTION 500 MG in NS (IVPB) 250 ML IV ONE (02:45)
[2017-06-22 02:52] LABS: BASOPHILS % (AUTO) 0 % (0-10); EOSINOPHILS # (AUTO) 0.1 10^3/uL (0.0-0.3); EOSINOPHILS % (AUTO) 1 % (0-10); HEMATOCRIT 45 % (35-52); HEMOGLOBIN 14.7 G/DL (11.5-16.0); LYMPHOCYTES # (AUTO) 1.2 X 10^3 (1.0-4.0); LYMPHOCYTES % (AUTO) 19 % (12-44); MEAN CORPUSCULAR HEMOGLOBIN 29 PG (25-34); MEAN CORPUSCULAR HGB CONC 33 G/DL (32-36); MEAN CORPUSCULAR VOLUME 88 FL (80-99); MEAN PLATELET VOLUME 10.6 FL (7.4-10.4); MONOCYTES # (AUTO) 0.4 X 10^3 (0.0-1.0); MONOCYTES % (AUTO) 7 % (0-12); NEUTROPHILS # (AUTO) 4.4 X 10^3 (1.8-7.8); NEUTROPHILS % (AUTO) 73 % (42-75); PLATELET COUNT 159 10^3/uL (130-400); RED BLOOD COUNT 5.05 10^6/uL (4.35-5.85); RED CELL DISTRIBUTION WIDTH 14.8 % (10.0-14.5)
[2017-06-22] MEDS ORDERED: LACTATED RINGERS 1,000 ML IV STA (02:52)
--- NOTE | 2017-06-22 02:52 | ED Respiratory ---
General Chief Complaint: Respiratory Problems Stated Complaint: SOA Source: patient, family (daughter) Exam Limitations: no limitations History of Present Illness Time seen by provider: 02:39 Initial Comments Patient presents to ER by EMS with a chief complaint that she was at home and for the last 10 days she's been feeling down with some wheezing and shortness of breath and nausea and vomiting today. She called her doctor's office sometime last week and they called her out some antibiotics but nobody knows what they were and she was taking them but not getting better. 2 days ago she went to the doctor's office where she was examined and they did not hear any wheezing but they gave her a shot of steroids and started her on doxycycline as well as some Tessalon Perles for coughing. Tonight the patient's been having some nausea and vomited times one without blood in it so EMS gave her a dose of Zofran which did not completely take away her nausea en route. She denies having a history of COPD, asthma or smoking. She has had a productive cough and chills but no objective fever. No diarrhea or constipation or abdominal pain. She denies chest pain. She does have a history of coronary disease and routinely takes her medications for diabetes and blood pressure to include Lasix and a jock some however tonight she threw up all of her medicines shortly after she took them. EMS reports the sats were 87% when they arrived and the patient reports she uses 5 L by nasal cannula routinely at home. EMS also reports they gave him 1 DuoNeb en route. The patient reports that this is made her breathing better. The daughter reports the patient wears her oxygen at night. EMS also reports the patient was afebrile when they arrived. Allergies and Home Medications Allergies Coded Allergies: codeine (Verified Allergy, Unknown, 09/09/08) morphine (Verified Allergy, Unknown, 09/09/08) Home Medications Alprazolam 0.25 Mg Tablet, 0.25 MG PO DAILY PRN for ANXIETY, (Reported) Amiodarone HCl 200 Mg Tablet, 200 MG PO BID, (Reported) Amlodipine Besylate 5 Mg Tablet, 5 MG PO DAILY, (Reported) Buspirone HCl 15 Mg Tablet, 15 MG PO BID, (Reported) Cholecalciferol 5,000 Unit Capsule, 5,000 UNIT PO DAILY, (Reported) Cyanocobalamin 1,000 Mcg/Ml Vial, 1,000 MCG INJ EVERY OTHER MONDAY, (Reported ) Dabigatran Etexilate Mesylate 150 Mg Capsule, 150 MG PO BID, (Reported) Digoxin 125 Mcg Tablet, 125 MCG PO MON, MON, MON, MON, (Reported) Donepezil Hcl 10 Mg Tablet, 10 MG PO HS, (Reported) Furosemide 40 Mg Tablet, 40 MG PO DAILY, (Reported) Levothyroxine Sodium 150 Mcg Tablet, 150 MCG PO DAILY, (Reported) Liothyronine Sodium 5 Mcg Tablet, 5 MCG PO BID, (Reported) Losartan Potassium 100 Mg Tablet, 100 MG PO DAILY @ 1230, (Reported) Meclizine HCl 25 Mg Tablet, 25 MG PO BID PRN for VERTIGO, (Reported) Meloxicam 15 Mg Tablet, 15 MG PO DAILY, (Reported) Metoclopramide HCl 5 Mg Tablet, 5 MG PO Q6H, #120 Prescribed by: MINO GARCIA on 07/15/15 1320 Metoprolol Tartrate 50 Mg Tablet, 25 MG PO BID, (Reported) TAKES 1/2 (50MG) TABLET [place]-3 Acid Ethyl Esters 1 Gm Capsule, 1 GM PO QID, (Reported) Ondansetron 4 Mg Tab.rapdis, 4 MG PO Q6H PRN for NAUSEA/VOMITING, (Reported) Pantoprazole Sodium 40 Mg Tablet.dr, 40 MG PO BID, #90 Prescribed by: MINO GARCIA on 07/15/15 1320 Potassium Chloride 20 Meq Tab.prt.sr, 20 MEQ PO DAILY @ 1230, (Reported) Sertraline Hcl 50 Mg Tablet, 50 MG PO DAILY, (Reported) Sucralfate 1 G Tablet, 1 GM PO QID, (Reported) Topiramate 25 Mg Tablet, 25 MG PO BID, (Reported) Tramadol Hcl 50 Mg Tab, 50-100 MG PO Q6H PRN for PAIN, (Reported) Constitutional: chills, No fever, malaise, weakness EENTM: No ear discharge, No hearing loss, No ear pain, No eye pain Respiratory: cough, No phlegm, short of breath, wheezing Cardiovascular: No chest pain, No palpitations, No syncope Gastrointestinal: No abdominal pain, No constipation, No diarrhea, nausea, vomiting Genitourinary: No discharge, No dysuria Skin: pruritus, rash Psychiatric/Neurological: Headache, Numbness Past Itvowsl-Emjdlk-Kapast Hx Patient Social History Alcohol Use: Denies Use Recreational Drug Use: No Smoking Status: Never a Smoker Recent Foreign Travel: No Contact w/Someone Who Travel: No Recent Hopitalizations: No Immunizations Up To Date Tetanus Booster (TDap): Unknown Date of Pneumonia Vaccine: May 21, 2011 Date of Influenza Vaccine: Mar 12, 2015 Seasonal Allergies Seasonal Allergies: Yes Surgeries History of Surgeries: Yes Surgeries: Abdominal, Gallbladder, Hysterectomy, Orthopedic, Pacemaker Respiratory History of Respiratory Disorde: No Cardiovascular History of Cardiac Disorders: Yes (CHF, sinus node dysfunction s/p pacemaker) Cardiac Disorders: Atrial Fibrillation, High Cholesterol, Hypertension Neurological History of Neurological Disord: Yes Neurological Disorders: Dementia Reproductive System Hx Reproductive Disorders: No Sexually Transmitted Disease: No HIV/AIDS: No Genitourinary Genitourinary Disorders: Kidney Stones Gastrointestinal History of Gastrointestinal Di: Yes (diverticulitis ) Gastrointestinal Disorders: Gastroesophageal Reflux, Hiatal Hernia Musculoskeletal History of Musculoskeletal Dis: Yes (osteoarthritis) Musculoskeletal Disorders: Arthritis Endocrine History of Endocrine Disorders: Yes (HYPOGLYCEMIA) Endocrine Disorders: Hypothyroidsim Cancer History of Cancer: No Psychosocial History of Psychiatric Problem: Yes Behavioral Health Disorders: Anxiety, Depression Integumentary History of Skin or Integumenta: No Blood Transfusions History of Blood Disorders: No Family Medical History Significant Family History: Heart Disease Physical Exam Vital Signs Vital Sign - Last 12Hours 06/22/17 02:37 Temp 97.7 Pulse 79 Resp 16 B/P (MAP) 155/74 (101) Pulse Ox 96 O2 Delivery Nasal Cannula O2 Flow Rate 4.00 Capillary Refill : General Appearance: WD/WN, mild distress Eyes: Bilateral Eye Normal Inspection, Bilateral Eye PERRL, Bilateral Eye EOMI HEENT: PERRL/EOMI, normal ENT inspection, TMs normal, pharynx normal Neck: non-tender, supple, normal inspection Respiratory: chest non-tender, respiratory distress (mild), crackles (few especially heard on the lef), wheezing (throughout) Cardiovascular: normal peripheral pulses, regular rate, rhythm, no edema Gastrointestinal: normal bowel sounds, non tender, soft Extremities: non-tender, normal inspection, no pedal edema, normal capillary refill Neurologic/Psychiatric: alert, normal mood/affect, oriented x 3 Skin: normal color, warm/dry Lymphatic: no adenopathy Focused Exam Evaluation Sepsis Stage: Ruled Out Lactate Level Laboratory Tests 06/22/17 03:05: Lactic Acid Level 1.13 Time of Focused Exam: 03:50 Respiratory: Chest Non Tender, No Accessory Muscle Use, No Respiratory Distress , Rales (few on the left), Wheezing (throughout left worse than right to) Cardiovascular: Regular Rate, Rhythm, No Edema, Normal Peripheral Pulses Capillary Refill: Less Than 3 Seconds Peripheral Pulses: 2+ Dorsalis Pedis (R), 2+ Left Dors-Pedis (L), 2+ Radial Pulses (R), 2+ Radial Pulses (L) Skin: normal color, No cyanosis Lactic Acid Level Laboratory Tests Test 06/22/17 03:05 Lactic Acid Level 1.13 MMOL/L (0.50-2.00) Progress/Results/Core Measures Suspected Sepsis SIRS Temperature: Pulse: Respiratory Rate: Laboratory Tests 06/22/17 02:40: White Blood Count 6.0 Blood Pressure / Mean: Laboratory Tests 06/22/17 03:05: Lactic Acid Level 1.13 Laboratory Tests 06/22/17 02:40: Creatinine 1.06, Platelet Count 159, Total Bilirubin 0.9 Results/Orders Lab Results Laboratory Tests Test 06/22/17 02:40 06/22/17 03:05 Range/Units White Blood Count 6.0 4.3-11.0 10^3/uL Red Blood Count 5.05 4.35-5.85 10^6/uL Hemoglobin 14.7 11.5-16.0 G/DL Hematocrit 45 35-52 % Mean Corpuscular Volume 88 80-99 FL Mean Corpuscular Hemoglobin 29 25-34 PG Mean Corpuscular Hemoglobin Concent 33 32-36 G/DL Red Cell Distribution Width 14.8 H 10.0-14.5 % Platelet Count 159 130-400 10^3/uL Mean Platelet Volume 10.6 H 7.4-10.4 FL Neutrophils (%) (Auto) 73 42-75 % Lymphocytes (%) (Auto) 19 12-44 % Monocytes (%) (Auto) 7 0-12 % Eosinophils (%) (Auto) 1 0-10 % Basophils (%) (Auto) 0 0-10 % Neutrophils # (Auto) 4.4 1.8-7.8 X 10^3 Lymphocytes # (Auto) 1.2 1.0-4.0 X 10^3 Monocytes # (Auto) 0.4 0.0-1.0 X 10^3 Eosinophils # (Auto) 0.1 0.0-0.3 10^3/uL Basophils # (Auto) 0.0 0.0-0.1 10^3/uL Sodium Level 136 135-145 MMOL/L Potassium Level 4.6 3.6-5.0 MMOL/L Chloride Level 105 98-107 MMOL/L Carbon Dioxide Level 18 L 21-32 MMOL/L Anion Gap 13 5-14 MMOL/L Blood Urea Nitrogen 19 H 7-18 MG/DL Creatinine 1.06 0.60-1.30 MG/DL Estimat Glomerular Filtration Rate 50 BUN/Creatinine Ratio 18 Glucose Level 152 H 70-105 MG/DL Calcium Level 9.2 8.5-10.1 MG/DL Magnesium Level 2.0 1.8-2.4 MG/DL Total Bilirubin 0.9 0.1-1.0 MG/DL Aspartate Amino Transf (AST/SGOT) 32 5-34 U/L Alanine Aminotransferase (ALT/SGPT) 34 0-55 U/L Alkaline Phosphatase 57 40-136 U/L C-Reactive Protein High Sensitivity 0.13 0.00-0.50 MG/DL B-Type Natriuretic Peptide 78.6 <100.0 PG/ML Total Protein 7.3 6.4-8.2 GM/DL Albumin 4.1 3.2-4.5 GM/DL Digoxin Level 0.45 L 0.80-2.00 NG/ML Lactic Acid Level 1.13 0.50-2.00 MMOL/L Micro Results Microbiology 06/22/17 Influenza Types A,B Antigen ([facility]) - Final, Complete My Orders Orders - [facility] Albuterol Pre-Mix Nebs (Rt) (Proventil (06/22/17 02:38) Cbc With Automated Diff (06/22/17 02:39) Comprehensive Metabolic Panel (06/22/17 02:39) Hs C Reactive Protein (06/22/17 02:39) BNP (06/22/17 02:39) Azithromycin Injection (Zithromax Inject (06/22/17 02:45) Digoxin (06/22/17 02:39) Arterial Blood Gas (06/22/17 02:39) Albuterol Pre-Mix Nebs (Rt) (Proventil (06/22/17 02:39) Svn Sm Volume Nebulizer Rt-Rfs (06/22/17 02:39) Ekg Tracing (06/22/17 02:39) Continuous Ekg Monitoring (06/22/17 02:39) Ondansetron Injection (Zofran Injectio (06/22/17 02:44) Ondansetron Injection (Zofran Injectio (06/22/17 02:45) Magnesium (06/22/17 02:42) Blood Culture (06/22/17 02:42) Lactic Acid Analyzer (06/22/17 02:42) Lactated Ringers (Lr 1000 Ml Iv Solution (06/22/17 02:52) Influenza A And B Antigens (06/22/17 03:03) Chest 1 View, Ap/Pa Only (06/22/17 03:08) Albuterol Pre-Mix Nebs (Rt) (Proventil (06/22/17 03:08) Ceftriaxone Injection (Rocephin Injectio (06/22/17 03:30) Medications Given in ED Current Medications Medications Dose Ordered Sig/Thao Route Start Time Stop Time Status Last Admin Dose Admin Azithromycin 500 mg/Sodium Chloride 250 ml @ 250 mls/hr ONCE ONCE IV 06/22/17 02:45 06/22/17 03:44 06/22/17 02:55 250 MLS/HR Ondansetron HCl 4 mg ONCE ONCE IVP 06/22/17 02:45 06/22/17 02:51 DC 06/22/17 02:55 4 MG Vital Signs/I&O Vital Sign - Last 12Hours 06/22/17 06/22/17 06/22/17 02:37 02:40 03:21 Temp 97.7 Pulse 79 Resp 16 B/P (MAP) 155/74 (101) Pulse Ox 96 94 95 O2 Delivery Nasal Cannula Nasal Cannula Nasal Cannula O2 Flow Rate 4.00 4.00 5.00 Capillary Refill : Progress Note #1: Time: 02:57 Progress Note Her story distress secondary to possible COPD exacerbation versus pneumonia. We' ll also check EKG and troponin. Patient is not having any chest pain. 0 320: Chest x-ray not showing any clear infiltrate however there may be something on the left side. Would recommend a 2 view in the morning and start her on some antibiotics Rocephin and azithromycin Progress Note #2: Time: 03:40 Progress Note ABG was a VBG so they did not run it. She is been satting in the mid 90s on 5 L by nasal cannula and her breath sounds are much improved after 10 mg of albuterol and one dose of DuoNeb so we'll go ahead and admit her under pneumonia versus COPD exacerbation. We'll cover her with antibiotics. She was given a steroid shot 2 days ago which was probably dexamethasone so we will be in any hurry to continue steroids at this time. ECG Initial ECG Impression Date: Jun 22, 2017 Initial ECG Impression Time: 02:51 Initial ECG Rate: 70 Initial ECG Intervals: QRS (168) Initial ECG Impression: Nonspecific Changes (atrioventricular dual paced rhythm ) Initial ECG Comparisson: Unchanged Comment Atrioventricular dual paced rhythm Diagnostic Imaging Diagonstic Imaging: Xray Plain Films/CT/US/NM/MRI: chest (2v) Comments Possible left upper lobe infiltrate. Reviewed: Reviewed by Me Departure Communication (Admissions) Time/Spoke to Admitting Phy: 03:25 Communication Discussed case lab imaging findings, EKG and plan with Dr. Vega. She is okay to see the patient and agrees with antibiotic choice. Impression Impression: Primary Impression: Pneumonia Qualified Codes: J18.9 - Pneumonia, unspecified organism Additional Impressions: COPD exacerbation Hypoxia Respiratory distress Disposition: ADMITTED INPATIENT Condition: Improved Admissions Decision to Admit Reason: Admit from ER (General) Decision to Admit/Date: Jun 22, 2017 Time/Decision to Admit Time: 03:42 Departure-Patient Inst. Referrals: CARTER VEGA MD (PCP/Family) Primary Care Physician Copy Copies To 1: CARTER VEGA MD, TITUS J Jun 22, 2017 02:52
[2017-06-22 03:13] LABS: ALBUMIN 4.1 GM/DL (3.2-4.5); BILIRUBIN,TOTAL 0.9 MG/DL (0.1-1.0); CALCIUM 9.2 MG/DL (8.5-10.1); CREATININE SERUM 1.06 MG/DL (0.60-1.30); POTASSIUM 4.6 MMOL/L (3.6-5.0); TOTAL PROTEIN 7.3 GM/DL (6.4-8.2)
[2017-06-22 03:19] LABS: DIGOXIN 0.45 NG/ML (0.80-2.00)
[2017-06-22] MEDS ORDERED: cefTRIAXone INJECTION 1,000 MG in NS (IVPB) 50 ML IV ONE (03:30)
[2017-06-22 04:00] VITALS: BP 151/81
[2017-06-22 04:17] VITALS: BP 155/74
[2017-06-22] MEDS ORDERED: RT-ALBUTEROL SULF 2.5 MG/3 ML PRE-MIX VIAL INH PRN (04:30)
[2017-06-22] MEDS ORDERED: NS IV 1000 ML 1,000 ML ONE (05:06)
[2017-06-22] MEDS ORDERED: ONDANSETRON 4 MG/2 ML (SDV) Z0FRAN IV PRN (05:45)
[2017-06-22] MEDS ORDERED: RT-ALBUTEROL SULF 2.5 MG/3 ML PRE-MIX VIAL INH SCH (06:00)
--- NOTE | 2017-06-22 06:18 | Diagnostic Imaging Report ---
INDICATION: Shortness of air. TECHNIQUE: Single view chest 3:15 a.m. CORRELATION STUDY: 04/27/2017. FINDINGS: Left-sided pacemaker remains in place. Heart size enlarged. Vascular slightly increased from prior study. Mild perihilar edema is suggested. There may be minimal atelectasis or perhaps infiltrate and or edema about the right infrahilar region. Mild prominent interstitial markings likely reflect mild edema. IMPRESSION: 1. Findings suggestive of fluid overload or failure, adversely changed from prior study. Dictated by: Dictated on workstation # [id number]
[2017-06-22] MEDS: LEVOTHYROXINE 150 MCG (LEVOTHROID) TAB PO SCH (06:34)
[2017-06-22] MEDS: ACETAMINOPHEN 500 MG TAB (TYLENOL) PO PRN (06:34)
[2017-06-22] MEDS: inSUlin (REGULAR) HUMAN 1 UNIT/0.01 ML (CHARGE PER UNIT) SC SCH ×4 (06:35→20:31)
[2017-06-22 06:44] LABS: BASOPHILS % (AUTO) 0 % (0-10); EOSINOPHILS % (AUTO) 0 % (0-10); HEMATOCRIT 41 % (35-52); LYMPHOCYTES # (AUTO) 0.6 X 10^3 (1.0-4.0); LYMPHOCYTES % (AUTO) 8 % (12-44); MEAN CORPUSCULAR HEMOGLOBIN 29 PG (25-34); MEAN CORPUSCULAR HGB CONC 32 G/DL (32-36); MEAN CORPUSCULAR VOLUME 91 FL (80-99); MEAN PLATELET VOLUME 10.3 FL (7.4-10.4); MONOCYTES # (AUTO) 0.6 X 10^3 (0.0-1.0); MONOCYTES % (AUTO) 8 % (0-12); NEUTROPHILS # (AUTO) 6.6 X 10^3 (1.8-7.8); NEUTROPHILS % (AUTO) 84 % (42-75); PLATELET COUNT 137 10^3/uL (130-400); RED BLOOD COUNT 4.48 10^6/uL (4.35-5.85); RED CELL DISTRIBUTION WIDTH 14.1 % (10.0-14.5); WHITE BLOOD COUNT 7.8 10^3/uL (4.3-11.0)
[2017-06-22] MEDS: NS IV 1000 ML 1,000 ML IV SCH ×2 (06:55→14:10)
[2017-06-22 06:59] LABS: ANISOCYTOSIS SLIGHT; BAND NEUTROPHILS 3 %; BASOPHILS % (MANUAL) 0 %; EOSINOPHILS % (MANUAL) 0 %; LYMPHOCYTES % (MANUAL) 5 %; MONOCYTES % (MANUAL) 5 %; NEUTROPHILS % (MANUAL) 83 %; REACTIVE LYMPHOCYTES 4 %
[2017-06-22 07:06] LABS: CALCIUM 8.6 MG/DL (8.5-10.1); CREATININE SERUM 0.92 MG/DL (0.60-1.30); POTASSIUM 3.8 MMOL/L (3.6-5.0)
[2017-06-22] MEDS: RT-ALBUTEROL SULF 2.5 MG/3 ML PRE-MIX VIAL INH SCH ×5 (07:12→18:30)
[2017-06-22 08:00] VITALS: BP 119/58
[2017-06-22] MEDS ORDERED: MELO15TA39 PO (08:10)
[2017-06-22] MEDS ORDERED: CEPH500C PO (08:10)
[2017-06-22] MEDS ORDERED: DABI150C5 PO (08:10)
[2017-06-22] MEDS ORDERED: DONE10TA41 PO (08:10)
[2017-06-22] MEDS ORDERED: DIGO125T PO (08:10)
[2017-06-22] MEDS ORDERED: DEXL60CA PO (08:10)
[2017-06-22] MEDS ORDERED: CNC1KV INJ (08:10)
[2017-06-22] MEDS ORDERED: AMLO5TAB2 PO (08:10)
[2017-06-22] MEDS ORDERED: DOXY100C2 PO (08:10)
[2017-06-22] MEDS ORDERED: FURO40TA4 PO (08:10)
[2017-06-22] MEDS ORDERED: LOSA100T28 PO (08:10)
[2017-06-22] MEDS ORDERED: SERT50TA9 PO (08:10)
[2017-06-22] MEDS ORDERED: CLOB15OI2 TOP (08:10)
[2017-06-22] MEDS ORDERED: POTA20TA15 PO (08:10)
[2017-06-22] MEDS ORDERED: ALPR0.254 PO (08:10)
[2017-06-22] MEDS ORDERED: PANT40TA3 PO (08:10)
--- NOTE | 2017-06-22 08:32 | History & Physicial ---
History of Present Illness History of Present Illness Reason for visit/HPI PT IS AN 82 Y/O FEMALE WHO IS KNOWN TO ME FROM CLINIC. SHE WAS IN CLINIC EARLY THIS WEEK WITH COMPLAINT OF COLD SYMPTOMS. SHE WAS TREATED AND REPORTS THAT SHE HAD NOT REALLY BEEN FEELING ANY BETTER, AND THEN LAST NIGHT WHEN SHE HAD ACUTE WORSENING OF SYMPTOMS, WORSENING SHORTNESS OF BREATH, AND PRESENTED TO THE EMERGENCY DEPARTMENT WHERE SHE WAS FOUND TO BE ACUTELY HYPOXIC. PER ER PHYSICIAN REPORT, SHE HAD AN OXYGEN SATURATION LESS THAN 88%. SHE WAS FOUND TO HAVE SOME FLUID OVERLOAD AND POSSIBLE PNEUMONIA ON CHEST XRAY AND WAS THUS ADMITTED FOR ANTIBIOTICS, DIURESIS, SUPPORTIVE CARE, MONITORING OF CHEST XRAY, AND FURTHER WORK UP NECESSARY. Date of Admission Jun 22, 2017 at 03:30 Date Seen by Provider: Jun 22, 2017 Time Seen by Provider: 08:30 I consulted on this patient on 06/22/17 08:28 Attending Physician Yarely Vega MD Admitting Physician Yarely Vega MD Consult Allergies and Home Medications Allergies Coded Allergies: codeine (Verified Allergy, Unknown, 09/09/08) morphine (Verified Allergy, Unknown, 09/09/08) Home Medications Alprazolam 0.25 Mg Tablet, 0.25 MG PO BID PRN for ANXIETY, (Reported) Amiodarone HCl 200 Mg Tablet, 100 MG PO DAILY, (Reported) TAKES 1/2 (200MG) TABLET Amlodipine Besylate 5 Mg Tablet, 5 MG PO DAILY, (Reported) Buspirone HCl 15 Mg Tablet, 15 MG PO BID, (Reported) Cephalexin 500 Mg Capsule, 500 MG PO TID for 10 Days, (Reported) 10 DAY SUPPLY FILLED 06-14-17 Cholecalciferol 5,000 Unit Capsule, 5,000 UNIT PO DAILY, (Reported) Clobetasol Propionate 15 Gm Oint...g., TOP BID PRN for PRN, (Reported) Cyanocobalamin 1,000 Mcg/Ml Inj, 1,000 MCG INJ EVERY OTHER MONDAY, (Reported) Dabigatran Etexilate Mesylate 150 Mg Capsule, 150 MG PO BID, (Reported) Dexlansoprazole 60 Mg , 60 MG PO DAILY, (Reported) Digoxin 125 Mcg Tablet, 125 MCG PO SuMoWeFr, (Reported) Donepezil HCl 10 Mg Tablet, 10 MG PO DAILY, (Reported) Doxycycline Hyclate 100 Mg Capsule, 100 MG PO BID for 10 Days, (Reported) 10 DAY SUPPLY FILLED 06-20-16 Furosemide 40 Mg Tablet, 40 MG PO DAILY, (Reported) Levothyroxine Sodium 150 Mcg Tablet, 150 MCG PO DAILY, (Reported) Liothyronine Sodium 5 Mcg Tablet, 5 MCG PO BID, (Reported) Losartan Potassium 100 Mg Tablet, 100 MG PO DAILY, (Reported) Meclizine HCl 25 Mg Tablet, 25 MG PO BID PRN for VERTIGO, (Reported) Meloxicam 15 Mg Tablet, 15 MG PO DAILY, (Reported) Metoclopramide HCl 5 Mg Tablet, 5 MG PO Q6H, #120 Prescribed by: MINO GARCIA on 07/15/15 1320 Metoprolol Tartrate 50 Mg Tablet, 50 MG PO BID, (Reported) [place]-3 Acid Ethyl Esters 1 Gm Capsule, 1 GM PO QID, (Reported) Ondansetron 4 Mg Tab.rapdis, 4 MG PO Q6H PRN for NAUSEA/VOMITING, (Reported) Pantoprazole Sodium 40 Mg Tablet.dr, 40 MG PO DAILY, (Reported) Potassium Chloride 20 Meq Tab.er.prt, 20 MEQ PO BID, (Reported) Sertraline HCl 50 Mg Tablet, 50 MG PO DAILY, (Reported) Sucralfate 1 G Tablet, 1 GM PO QID, (Reported) Topiramate 25 Mg Tablet, 25 MG PO BID, (Reported) Tramadol Hcl 50 Mg Tab, 50-100 MG PO Q6H PRN for PAIN, (Reported) Past Afzksoy-Rsqxjj-Mrqfur Hx Patient Social History Marrital Status: Living Status: LIVES AT HOME ALONE Employed/Student: retired Alcohol Use: Denies Use Recreational Drug Use: No Smoking Status: Never a Smoker 2nd Hand Smoke Exposure: No Physical Abuse Screen: No Sexual Abuse: No Recent Foreign Travel: No Contact w/other who traveled: No Recent Hopitalizations: No Recent Infectious Disease Expo: No Immunizations Up To Date Tetanus Booster (TDap): Unknown Date of Pneumonia Vaccine: Mar 22, 2017 Date of Influenza Vaccine: Mar 19, 2017 Seasonal Allergies Seasonal Allergies: Yes Surgeries Yes Abdominal, Gallbladder, Hysterectomy, Orthopedic, Pacemaker Respiratory No Currently Using CPAP: No Currently Using BIPAP: No Cardiovascular Yes (CHF, sinus node dysfunction s/p pacemaker) Atrial Fibrillation, High Cholesterol, Hypertension Neurological Yes Dementia Reproductive System : No Hx Reproductive Disorders: No Sexually Transmitted Disease: No HIV/AIDS: No Genitourinary Kidney Stones Gastrointestinal Yes (diverticulitis ) Gastroesophageal Reflux, Hiatal Hernia Musculoskeletal Yes (osteoarthritis) Arthritis Endocrine History of Endocrine Disorders: Yes (HYPOGLYCEMIA) Endocrine Disorders: Hypothyroidsim Cancer No Psychosocial History of Psychiatric Problem: Yes Behavioral Health Disorders: Anxiety, Depression Integumentary History of Skin or Integumenta: No Blood Transfusions History of Blood Disorders: No Reviewed Nursing Assessment Reviewed/Agree w Nursing PMH: Yes Family Medical History Significant Family History: Heart Disease Constitutional: No chills, No fever, malaise, weakness EENTM: No hoarseness, No throat pain Respiratory: cough, phlegm, short of breath, wheezing Cardiovascular: No chest pain, other (AFIB) Gastrointestinal: No abdominal pain, loss of appetite (DUE TO NAUSEA), nausea, No vomiting Genitourinary: no symptoms reported Musculoskeletal: No back pain, muscle weakness Skin: no symptoms reported Psychiatric/Neurological: Anxiety, Denies Depressed, Other (DEMENTIA) All Other Systems Reviewed Negative Unless Noted: Yes Physical Exam Vital Signs Vital Sign - Last 12Hours 06/22/17 02:37 Temp 97.7 Pulse 79 Resp 16 B/P (MAP) 155/74 (101) Pulse Ox 96 O2 Delivery Nasal Cannula O2 Flow Rate 4.00 Capillary Refill : Less Than 3 Seconds General Appearance: No Apparent Distress, WD/WN Eyes: Bilateral Eye Normal Inspection, Bilateral Eye PERRL, Bilateral Eye EOMI HEENT: PERRL/EOMI, Pharynx Normal Neck: Full Range of Motion, Supple Respiratory: Chest Non Tender, Crackles, Decreased Breath Sounds, Rhonci, Wheezing Cardiovascular: Irregularly Irregular Gastrointestinal: Normal Bowel Sounds, No Organomegaly, Non Tender, Soft Rectal: Deferred Back: Normal Inspection Extremity: Normal Capillary Refill, Normal Inspection, Non Tender, No Calf Tenderness, Other (TRACE PEDAL EDEMA) Neurologic/Psychiatric: Alert, Oriented x3, No Motor/Sensory Deficits, Normal Mood/Affect, photographic double II-XII Norm as Tested Skin: Normal Color, Warm/Dry Lymphatic: No Adenopathy Assessment/Plan Assessment and Plan HYPOXEMIA MILD FLUID OVERLOAD UPPER RESPIRATORY INFECTION ATRIAL FIBRILLATION DIABETES MELLITUS HYPERTENSION DEMENTIA HYPOTHYROID CHRONIC ANTICOAGULATION DUE TO AFIB CHRONIC MIGRAINE HEADACHES HYPOXEMIA AND MILD FLUID OVERLOAD AND UPPER RESPIRATORY INFECTION - PT ON PNEUMONIA PROTOCOL, CHECK XRAY IN THE MORNING. WILL CONTINUE WITH OXYGEN, BREATHING TREATMENTS, AND GIVE A SMALL DOSE OF LASIX TODAY, WILL RESTART HOME MEDICATION UPON COMPLETION OF THE MED RECONCILIATION LATER TODAY. ATRIAL FIBRILLATION - RESTART PRADAXA, AND DIGOXIN RESTARTED THROUGH THE EMERGENCY DEPARTMENT. DIABETES MELLITUS - DIET CONTROLLED - CHECK FSBS I AM GIVING STEROIDS. HYPERTENSION - CONTROLLED - WILL RESTART HOME MEDICATIONS ONCE VERIFIED BY PHARMACY MILD DEMENTIA - CHRONIC - CONTINUE WITH SUPPORTIVE CARE. HYPOTHYROID - RESUME HOME MEDICATION ONCE VERIFIED, CHECK TSH, FREE T4 WELL. CHRONIC ANTICOAGULATION DUE TO AFIB - RESTARTED PRADAXA CHRONIC MIGRAINE HEADACHES - RESTART TOPAMAX. GI PROPHYLAXIS WITH PEPCID IV BID DVT PROPHYLAXIS WITH PRADAXA AND SCD'S. Problems: Admission Diagnosis HYPOXEMIA MILD FLUID OVERLOAD UPPER RESPIRATORY INFECTION ATRIAL FIBRILLATION DIABETES MELLITUS HYPERTENSION DEMENTIA HYPOTHYROID CHRONIC ANTICOAGULATION DUE TO AFIB CHRONIC MIGRAINE HEADACHES Clinical Quality Measures DVT/VTE Risk/Contraindication: Risk Factor Score Per Nursin RFS Level Per Nursing on Admit: 3=High YARELY VEGA MD Jun 22, 2017 8:32 am
[2017-06-22] MEDS ORDERED: methylPREDNISolone 125 MG (Solu-MEDROL) VIAL IM NR (08:45)
[2017-06-22] MEDS ORDERED: PROMETHAZINE INJ 25 MG/ML (PHENERGAN) AMP IVP NR (08:45)
[2017-06-22] MEDS ORDERED: CALCIUM CARBONATE 500 MG (TUMS) TAB.CHEW PO NR (08:45)
[2017-06-22] MEDS ORDERED: PROMETHAZINE INJ 25 MG/ML (PHENERGAN) AMP IVP PRN (08:45)
[2017-06-22] MEDS ORDERED: FAMOTIDINE 20MG/2ML IV (PEPCID) IVP SCH (09:00)
[2017-06-22] MEDS: DIGOXIN 0.125 MG (LANOXIN) TAB PO SCH (09:02)
[2017-06-22] MEDS: DABIGATRAN 150 MG (PRADAXA) CAPSULE PO SCH ×2 (09:57→20:31)
[2017-06-22] MEDS ORDERED: BENZ200C51 PO (10:17)
[2017-06-22] MEDS ORDERED: ACHD5005 PO (10:17)
[2017-06-22 11:46] LABS: BILIRUBIN,URINE NEGATIVE (NEGATIVE); CLARITY,URINE CLEAR; COLOR,URINE YELLOW; GLUCOSE, URINE (UA) NEGATIVE (NEGATIVE); KETONES,URINE NEGATIVE (NEGATIVE); LEUKOCYTE ESTERASE ,URINE NEGATIVE (NEGATIVE); NITRITE,URINE NEGATIVE (NEGATIVE); PH,URINE 6.5 (5-9); PROTEIN,URINE NEGATIVE (NEGATIVE); UROBILINOGEN,URINE NORMAL (NORMAL)
[2017-06-22 11:55] LABS: BACTERIA,URINE NEGATIVE /HPF; YEAST,URINE FEW /HPF
[2017-06-22 12:00] VITALS: BP 132/63
[2017-06-22] MEDS: methylPREDNISolone 125 MG (Solu-MEDROL) VIAL IVP SCH ×3 (12:01→23:52)
[2017-06-22] MEDS ORDERED: CHOL5000 PO (12:40)
[2017-06-22] MEDS ORDERED: LACT1CAP74 PO (12:40)
[2017-06-22] MEDS ORDERED: LEVO125T6 PO (13:03)
[2017-06-22] MEDS ORDERED: TRAM50TA2 PO (13:03)
[2017-06-22] MEDS ORDERED: OMEG1CAP58 PO (13:03)
[2017-06-22 15:45] VITALS: BP 104/57
[2017-06-22 19:39] VITALS: BP 124/63
[2017-06-22] MEDS ORDERED: FUROSEMIDE 40 MG/4 ML INJ (LASIX) IVP ONE (20:45)
[2017-06-22] MEDS: RT-ALBUTEROL/IPRATROPIUM 3 ML (DUONEB) VIAL INH SCH (21:05)
[2017-06-23] MEDS ORDERED: RT-ALBUTEROL SULF 2.5 MG/3 ML PRE-MIX VIAL INH PRN
[2017-06-23 00:26] VITALS: BP 102/52
[2017-06-23] MEDS: RT-ALBUTEROL/IPRATROPIUM 3 ML (DUONEB) VIAL INH SCH ×5 (01:57→18:41)
[2017-06-23] MEDS: ACETAMINOPHEN 500 MG TAB (TYLENOL) PO PRN ×2 (01:58→20:21)
[2017-06-23] MEDS ORDERED: FUROSEMIDE 40 MG/4 ML INJ (LASIX) IVP ONE (02:00)
[2017-06-23 03:48] VITALS: BP 110/59
[2017-06-23 06:25] LABS: HEMOGLOBIN 11.8 G/DL (11.5-16.0); MEAN PLATELET VOLUME 9.7 FL (7.4-10.4); RED BLOOD COUNT 4.03 10^6/uL (4.35-5.85); RED CELL DISTRIBUTION WIDTH 13.9 % (10.0-14.5); WHITE BLOOD COUNT 5.2 10^3/uL (4.3-11.0)
[2017-06-23 06:51] LABS: ALBUMIN 3.5 GM/DL (3.2-4.5); BILIRUBIN,TOTAL 0.5 MG/DL (0.1-1.0); CALCIUM 8.6 MG/DL (8.5-10.1); CREATININE SERUM 1.2 MG/DL (0.60-1.30); POTASSIUM 3.5 MMOL/L (3.6-5.0); TOTAL PROTEIN 6.3 GM/DL (6.4-8.2)
[2017-06-23] MEDS: LEVOTHYROXINE 150 MCG (LEVOTHROID) TAB PO SCH (06:52)
[2017-06-23] MEDS: inSUlin (REGULAR) HUMAN 1 UNIT/0.01 ML (CHARGE PER UNIT) SC SCH ×4 (06:52→20:55)
[2017-06-23] MEDS: methylPREDNISolone 125 MG (Solu-MEDROL) VIAL IVP SCH ×3 (06:52→17:36)
[2017-06-23 08:00] VITALS: BP 138/58
--- NOTE | 2017-06-23 08:20 | Progress Note (SOAP) ---
Subjective Date Seen by Provider: Jun 23, 2017 Time Seen by Provider: 08:20 Subjective/Events-last exam PT REPORTS THAT SHE HAD A ROUGH NIGHT, HER BLOOD PRESSURE WAS A LITTLE LOW AND SHE WAS QUITE ANXIOUS ABOUT HER BLOOD PRESSURE. SHE ALSO COUGHED A LOT LAST NIGHT AND FEELS WORN OUT TODAY BECAUSE OF POOR REST. SHE STATES THAT SHE NOTICED A LOT OF TROUBLE BREATHING AT THE LATER PART OF THE DAY AND FELT MUCH BETTER AFTER GETTING LASIX. Review of Systems General: No Chills, Fatigue, Malaise HEENT: No Head Aches Pulmonary: Dyspnea, Cough Cardiovascular: No: Chest Pain Gastrointestinal: No: Nausea, Abdominal Pain Neurological: Weakness Objective Exam Vital Signs Date Time Temp Pulse Resp B/P (MAP) Pulse Ox O2 Delivery O2 Flow Rate FiO2 06/23/17 07:00 92 Nasal Cannula 2.00 06/23/17 03:48 98.9 100 17 110/59 (76) 92 Nasal Cannula 5.00 06/23/17 01:57 92 Nasal Cannula 3.00 06/23/17 01:00 97 06/23/17 00:26 98.2 83 17 102/52 (69) 92 Nasal Cannula 5.00 06/22/17 23:54 92 Nasal Cannula 3.00 06/22/17 21:05 93 Nasal Cannula 3.00 06/22/17 21:00 Nasal Cannula 4.00 06/22/17 19:39 98.5 77 18 124/63 (83) 94 Nasal Cannula 5.00 06/22/17 19:20 75 95 06/22/17 19:00 101 06/22/17 18:30 95 Nasal Cannula 3.00 06/22/17 16:41 71 06/22/17 16:28 95 Nasal Cannula 3.00 06/22/17 15:45 99.0 73 18 104/57 (73) 96 Nasal Cannula 5.00 06/22/17 12:00 99.3 75 18 132/63 (86) 96 Nasal Cannula 4.00 06/22/17 11:46 92 Nasal Cannula 3.00 06/22/17 09:25 95 Nasal Cannula 4.00 06/22/17 09:00 95 Nasal Cannula 4.00 I & O 06/23/17 07:00 Intake Total 2080 ml Output Total 1950 ml Balance 130 ml Capillary Refill : Less Than 3 Seconds General Appearance: No Apparent Distress, WD/WN HEENT: PERRL/EOMI, Pharynx Normal Neck: Full Range of Motion, Supple Respiratory: Chest Non Tender, Crackles, Decreased Breath Sounds, Rhonci, Wheezing Cardiovascular: Irregularly Irregular Gastrointestinal: normal bowel sounds, non tender, soft Extremity: Normal Capillary Refill, No Pedal Edema Neurologic/Psychiatric: Alert, Oriented x3, No Motor/Sensory Deficits, Normal Mood/Affect Skin: Warm/Dry Lymphatic: No Adenopathy Results Lab Laboratory Tests 06/22/17 10:47: Urine Color YELLOW, Urine Clarity CLEAR, Urine pH 6.5, Urine Specific [place] 1.005L, Urine Protein NEGATIVE, Urine Glucose (UA) NEGATIVE, Urine Ketones NEGATIVE, Urine Nitrite NEGATIVE, Urine Bilirubin NEGATIVE, Urine Urobilinogen NORMAL, Urine Leukocyte Esterase NEGATIVE, Urine RBC (Auto) NEGATIVE, Urine RBC NONE, Urine WBC NONE, Urine Squamous Epithelial Cells 2-5, Urine Crystals NONE, Urine Bacteria NEGATIVE, Urine Casts NONE, Urine Mucus NEGATIVE, Urine Yeast FEWH, Urine Culture Indicated NO 06/22/17 11:43: Glucometer 120H 06/22/17 15:59: Glucometer 189H 06/22/17 20:31: Glucometer 182H 06/23/17 05:06: Glucometer 207H 06/23/17 06:11: White Blood Count 5.2, Red Blood Count 4.03L, Hemoglobin 11.8, Hematocrit 33L, Mean Corpuscular Volume 81, Mean Corpuscular Hemoglobin 29, Mean Corpuscular Hemoglobin Concent 36, Red Cell Distribution Width 13.9, Platelet Count 130, Mean Platelet Volume 9.7, Sodium Level 139, Potassium Level 3.5L, Chloride Level 109H, Carbon Dioxide Level 18L, Anion Gap 12, Blood Urea Nitrogen 18, Creatinine 1.20, Estimat Glomerular Filtration Rate 43, BUN/Creatinine Ratio 15 , Glucose Level 221H, Calcium Level 8.6, Total Bilirubin 0.5, Aspartate Amino Transf (AST/SGOT) 16, Alanine Aminotransferase (ALT/SGPT) 23, Alkaline Phosphatase 40, Total Protein 6.3L, Albumin 3.5 Microbiology 06/22/17 Blood Culture - Preliminary, Resulted No growth 06/22/17 Influenza Types A,B Antigen (KATERINA) - Final, Complete Assessment/Plan Assessment/Plan Assess & Plan/Chief Complaint HYPOXEMIA MILD FLUID OVERLOAD UPPER RESPIRATORY INFECTION ATRIAL FIBRILLATION DIABETES MELLITUS HYPERTENSION DEMENTIA HYPOTHYROID CHRONIC ANTICOAGULATION DUE TO AFIB CHRONIC MIGRAINE HEADACHES HYPOXEMIA AND MILD FLUID OVERLOAD AND UPPER RESPIRATORY INFECTION - PT ON PNEUMONIA PROTOCOL, START MUCINEX AND ADVAIR, CONTINUE WITH MAT PROTOCOL, OXYGEN , BREATHING TREATMENTS, AND LASIX, AND MONITOR I/O AND DAILY WEIGHTS. PT STILL TOO ILL TO GO HOME, WILL MONITOR REPEAT XRAY IMAGES, CHECK REPEAT BNP - ADDING TO BLOOD IN LAB. ATRIAL FIBRILLATION - RESTART PRADAXA, AND DIGOXIN RESTARTED THROUGH THE EMERGENCY DEPARTMENT. DIABETES MELLITUS - DIET CONTROLLED -HOWEVER DUE TO ELEVATION OF GLUCOSE FROM STEROIDS HAS CAUSED PT'S FSBS TO BE ELEVATED. HYPERTENSION - CONTROLLED - ONLY RESTART TOPROL AT THIS TIME, SHE IMPROVES FROM A HEALTH [facility], WE MAY NEED TO RESTART HER OTHER ANTIHYPERTENSIVE MEDICATIONS MILD DEMENTIA - CHRONIC - CONTINUE WITH SUPPORTIVE CARE. HYPOTHYROID - RESUMED HOME MEDICATION. CHRONIC ANTICOAGULATION DUE TO AFIB - RESTARTED PRADAXA, DIGOXIN, AMIODARONE, STOP TELEMETRY - HER AFIB IS CHRONIC AND STABLE CHRONIC MIGRAINE HEADACHES - RESTART TOPAMAX. GI PROPHYLAXIS WITH PEPCID IV BID DVT PROPHYLAXIS WITH PRADAXA AND SCD'S. Clinical Quality Measures DVT/VTE Risk/Contraindication: Risk Factor Score Per Nursin RFS Level Per Nursing on Admit: 3=High Contraindications-Pharm: Other *list below* Other: PT ON PRADAXA, WILL THEREFORE, NOT START LOVENOX DUE TO INCREASED BLEED RISK CARTER BADILLO MD Jun 23, 2017 08:20
[2017-06-23] MEDS ORDERED: KCL 20 MEQ TAB (K-DUR) PO NR (08:30)
--- OUTSIDE RECORDS SUMMARY | 2017-06-23 08:30 | XMS REPORT | Continuity of Care Document ---
Author Author [facility] Address Unknown Phone Unavailable Care Team Providers Care Aviation Medicine Specialist Name Role Phone [employer] Unavailable Unavailable Problems Medications Allergies, Adverse Reactions, Alerts Immunizations Results Vital Signs Encounters Location Location Details Encounter Type Encounter Number Reason For Visit Attending Provider ADM Date DC Date Status Source OUTPATIENT [id number] BERTHA DHALIWAL 11/18/2016 11/18/2016 Active [facility] OUTPATIENT [id number] ISAIAH OROSCO 02/22/2017 Active [facility] OUTPATIENT [id number] BERTHA DHALIWAL 05/18/2017 05/18/2017 Active [facility] O Active [facility] Procedures Plan of Care Social History Assessment and Plan Family History Advance Directives Functional Status
--- OUTSIDE RECORDS SUMMARY | 2017-06-23 08:31 | XMS REPORT | Encounter Summary ---
Author Author [facility] Organization [facility] Address Unknown Phone Unavailable Care Team Providers Care Case Worker Name Role Phone PCP Unavailable Reason for Visit * Reason Comments Amiodarone Monitoring due for labs & CXR, letter & reqs sent. Encounter Details Date Type Department Care Team Description 04/19/2017 Documentation [facility] Andrea Asencio, STEVEN Amiodarone Monitoring [address] [facility] (due for labs & CXR, [place] [address] letter & reqs sent.) [phone] Social History Tobacco Use Types Packs/Day Years Used Date Never Smoker Smokeless Tobacco: Never Used Alcohol Use Drinks/Week oz/Week Comments No Sex Assigned at Date Recorded Not on file as of this encounter Progress Notes * Andrea Asencio RN - 04/19/2017 11:45 AM CDT Sent amio letter and reqs 04/19/17. Pt to see MPE 05/18 for f/u. ----- Message ----- From: Aria Alcantar RN Sent: 12/12/2016 To: Олег Nurse Ep Subject: FW: LFT due 12/2016, TSH due 02/2017, CXR due 09/2017 ----- Message ----- From: Aria Alcantar RN Sent: 12/12/2016 To: Aria Alcantar RN Subject: LFT due 12/2016, TSH due 02/2017, CXR due 04* in this encounter Plan of Treatment Name Priority Associated Diagnoses Order Schedule CHEST 2 VIEWS Routine Paroxysmal atrial Expected: 04/19/2017 fibrillation (HCC) (Approximate), Expires: 04/19/2018 as of this encounter Results * TSH WITH FREE T4 REFLEX (04/24/2017) Component Value Ref Range T4-Free 0.98 TSH 6.17 (H) 0.49 - 4.67 Specimen Performing Laboratory [facility] [address] [address] * LIVER FUNCTION PANEL (04/24/2017) Component Value Ref Range Total Bilirubin 0.7 Bilirubin, Direct 0.1 Albumin 4.1 Alk Phosphatase 50 AST (SGOT) 24 ALT (SGPT) 24 Total Protein Specimen Performing Laboratory [facility] [address] [address] in this encounter Visit Diagnoses Diagnosis Paroxysmal atrial fibrillation (HCC) - Primary Atrial fibrillation in this encounter
--- OUTSIDE RECORDS SUMMARY | 2017-06-23 08:31 | XMS REPORT | Encounter Summary ---
Author Author [facility] Organization [facility] Address Unknown Phone Unavailable Care Team Providers Care Anthropology Lecturer Name Role Phone PCP Unavailable Reason for Visit * Reason Comments Labs Only Encounter Details Date Type Department Care Team Description 05/18/2017 Lab Only [facility] [place] Internal Paroxysmal atrial Medicine fibrillation [address] [place] [address] ([facility]);Cardiac pacemaker [address] [place] [address] Social History Tobacco Use Types Packs/Day Years Used Date Never Smoker Smokeless Tobacco: Never Used Alcohol Use Drinks/Week oz/Week Comments No Sex Assigned at Date Recorded Not on file as of this encounter Plan of Treatment Not on fileas of this encounter Visit Diagnoses Diagnosis Paroxysmal atrial fibrillation (HCC) Atrial fibrillation Cardiac pacemaker in situ in this encounter
--- OUTSIDE RECORDS SUMMARY | 2017-06-23 08:31 | XMS REPORT | Encounter Summary ---
Author Author [facility] Organization [facility] Address Unknown Phone Unavailable Care Team Providers Care Spiral Gear Generator Name Role Phone PCP Unavailable Reason for Visit * Reason Comments Amiodarone Monitoring completed 05/18/17 due 11/15/16 Encounter Details Date Type Department Care Team Description 05/19/2017 Documentation [facility] Sasha Chen, RN Amiodarone Monitoring [address] (completed 05/18/17 due [address] 11/15/16) [place] [address] Social History Tobacco Use Types Packs/Day Years Used Date Never Smoker Smokeless Tobacco: Never Used Alcohol Use Drinks/Week oz/Week Comments No Sex Assigned at Date Recorded Not on file as of this encounter Progress Notes * Sasha Chen RN - 05/19/2017 2:30 PM SIMULATION SPECIALIST labs results reviewed with her daughter * Sasha Chen RN - 05/19/2017 2:30 PM SIMULATION SPECIALIST Formatting of this note may be different from the original. Amiodarone Monitoring status as of 05/19/17: Amiodarone monitoring complete. Next amiodarone review is due in 180 days. Most recent lab results Lab Results Component Value Date/Time AST 24 04/24/2017 ALT 24 04/24/2017 TSH 6.17 (H) 04/24/2017 TSH3G 5.02 (H) 05/18/2017 03:14 PM [id number] 1.3 05/18/2017 03:14 PM Procedures Last chest X-Ray: 04/27/17 Last PFT: 12/03/14 Last eye exam: in this encounter Plan of Treatment Not on fileas of this encounter Visit Diagnoses Not on filein this encounter
--- OUTSIDE RECORDS SUMMARY | 2017-06-23 08:31 | XMS REPORT | Encounter Summary ---
Author Author [facility] Organization [facility] Address Unknown Phone Unavailable Care Team Providers Care Mark Up Designer Name Role Phone PCP Unavailable Reason for Visit * Reason Comments Medication Question verify Amiodarone instructions Encounter Details Date Type Department Care Team Description 05/22/2017 Telephone [facility] Cardiology Leann Nguyen, edge trimmer mechanic Question [address] [place] (verify Amiodarone [address] instructions) [place] [address] Social History Tobacco Use Types Packs/Day Years Used Date Never Smoker Smokeless Tobacco: Never Used Alcohol Use Drinks/Week oz/Week Comments No Sex Assigned at Date Recorded Not on file as of this encounter Miscellaneous Notes * Telephone Encounter - Leann Nguyen, STEVEN - 05/22/2017 9:40 AM MACHINE OPERATOR FARMWORKER 05/22/17 [phone] Daughter calling to see what dose of Amiodarone pt should be taking. I spoke to daughter. Last MAC ov was 05/18/17. Amiodarone dose was decreased to 100 mg per day . Daughter verbalized understanding. Refilled Amiodarone - [facility] pharmacy # [id number] - 3 refills ---- Message from Shalini Blake sent at 05/22/2017 8:23 AM MACHINE OPERATOR FARMWORKER ----- Regarding: VM-MPE,Medication Patient called Monday with Medication questions. Home is the call back. in this encounter Plan of Treatment Not on fileas of this encounter Visit Diagnoses Not on filein this encounter
--- OUTSIDE RECORDS SUMMARY | 2017-06-23 08:31 | XMS REPORT | Encounter Summary ---
Author Author [facility] Organization [facility] Address Unknown Phone Unavailable Care Team Providers Care Supervisor Tank House Name Role Phone PCP Unavailable Encounter Details Date Type Department Care Team Description 05/18/2017 [facility] Cardiology Marty Trejo MD Encounter [id number] [place] [address] [place] [address] Social History Tobacco Use Types Packs/Day Years Used Date Never Smoker Smokeless Tobacco: Never Used Alcohol Use Drinks/Week oz/Week Comments No Sex Assigned at Date Recorded Not on file as of this encounter Medications at Time of Discharge Medication Sig. Disp. Refills Start Date End Date alprazolam (XANAX) 0.25 Take 0.25 mg by mouth mg tablet twice daily as needed. amLODIPine (NORVASC) 5 mg Take 5 mg by mouth daily. tablet BUSPIRONE HCL (BUSPAR PO) Take 15 mg by mouth twice daily. Cholecalciferol (Vitamin Take 5,000 Units by mouth D3) (VITAMIN D-3) 5,000 daily. unit tab cyanocobalamin (VITAMIN Inject 1 mL into the B-12, RUBRAMIN) 1,000 muscle every 14 days. mcg/mL injection dabigatran (PRADAXA) 150 Take 150 mg by mouth mg capsule twice daily. digoxin (LANOXIN) 125 mcg Take 1 Tab by mouth every 90 Tab 07/08/2013 tablet 48 hours. donepezil (ARICEPT) 10 mg Take 10 mg by mouth At tablet Bedtime Daily. Erythromycin 250 mg cpDR Take 1 Cap by mouth three times daily before meals. furosemide (LASIX) 40 mg Take 40 mg by mouth tablet daily. levothyroxine (SYNTHROID) Take 125 mcg by mouth 125 mcg tablet daily 30 minutes before breakfast. liothyronine (CYTOMEL) 5 Take 5 mcg by mouth twice mcg tab daily. losartan (COZAAR) 100 mg Take 100 mg by mouth tablet Daily. meloxicam(+) (MOBIC) 15 Take 15 mg by mouth mg tablet daily. metoprolol tartrate Take 25 mg by mouth twice (LOPRESSOR) 25 mg tablet daily. [place]-3 Acid Ethyl Esters Take 1 Cap by mouth four 360 Cap 2 2011 (LOVAZA) 1 gram cap times daily. pantoprazole DR Take 40 mg by mouth twice (PROTONIX) 40 mg tablet daily. potassium chloride SR Take 20 mEq by mouth (K-DUR) 20 mEq tablet daily. sertraline (ZOLOFT) 50 mg Take 50 mg by mouth tablet daily. sucralfate (CARAFATE) 1 Take 1 g by mouth at gram tablet bedtime daily. topiramate (TOPAMAX) 25 Take 25 mg by mouth twice mg tablet daily. traMADol (ULTRAM) 50 mg Take 50 mg by mouth every tablet 6 hours as needed. amiodarone (CORDARONE) Take 0.5 tablets by mouth 90 tablet 3 201605/22/2017 200 mg tablet daily. Take with food. as of this encounter Plan of Treatment Not on fileas of this encounter Results * DEVICE EVALUATION - PPM (05/18/2017 1:16 PM) Component Value Ref Range Generator Model # REVO MRI RVDR01 Generator Serial # [id number] Generator Implnat Date 10/18/2011 FLÉIX/EOL Indicator BOOMSWING OPERATOR=2.81V Generator Beef Pusher Medtronic Generator Investigational No Wireless Generator No Device Type DDD-PM Atrial Lead Model # CAPSUREFIX MRI SURESCAN 5086-52cm Atrial Lead Serial # [id number] Atrial Lead Implant Date 10/18/2011 Atrial Lead Diaph. 10 Stimulation Atrial Lead Beef Pusher Medtronic Atrial Lead No Investigational Atrial Lead Fixation active fixation Atrial Lead Location right atrial appendage Atrial Lead Pin Connector IS1 Atrial Lead Polarity Bipolar RV Lead Model # CAPSUREFIX MRI SURESCAN 5086-58cm RV Lead Serial # [id number] RV Lead Implant Date 10/18/2011 RV Lead Diaph. 10 Stimulation RV Lead Beef Pusher Medtronic RV Lead Investigational No RV Lead Fixation active fixation RV Lead Location RV low septum RV Lead Pin Connector ICD IS1 Device Mode DDDR Lower Rate Limit 70 Upper Rate Limit 130 Sensor Rate Limit 130 Pace AV Delay 180 Sense AV Delay 150 VT Monitor 150 Mode Switch (bpm) >150 High V Rate Detect >150 Mode Switch Status On Device Implanted By Ernesto Sosa M.D. Pacemaker Dependant No Date of Last Programming 05/18/17 Next Programming Check 04/2018 Due Date of Last 05/18/17 Interrogation HF Patient No Date of Last Remote Check 02/22/17 Next Remote Check Due 08/18/17 Remote Monitoring? Yes EP Device Followed by Dr. Trejo Name EP Device Followed By MAC Device [place] [facility]link Express Transmitter Compatible On AntiCoag Date 10/10/16 Known Diagnosed AFib Yes On Anticoagulation Yes Generator MRI Conditional Yes Atrial Lead MRI Yes Conditional LV Lead MRI Conditional Yes Initial Rhythm AP-WORKERS COMPENSATION ADMINISTRATOR Underlying Rhythm SB 51 bpm # Mode S. Events 233 Treated/50 monitored # High AT/AF Evts - Time in AT/AF 3.3% V Rate in AT/AF Mostly 100 bpm Single PVSc 1.4/hr (2.5) PVC runs 0.2/hr (0.6) Battery Voltage 2.95 (BOOMSWING OPERATOR @ 2.81) A Sense mv 3.6 A Capture V 1.0 A Capture ms 0.4 A Lead ohms 360 RV Sense mv 19 RV Capture V 1.0 RV Capture ms 0.4 RV Lead ohms 536 LV Sense mv - EP LV Capture V - LV Capture ms - LV Lead ohms - Counters Clrd Yes Saved to Disc No Device Function WNL Yes Device Reprogram No V-V Timing - Ao Voltage 2.0 AO Pulse Width 0.4 RV Voltage 2.0 RV Pulse Width 0.4 LV Voltage - LV Pulse Width - # High V Events 0 Magent Rate - Estimated Longevity - Initial Rhythm APVP 73 bpm Programming? Yes Interrogation? Yes Remote Check? No -VS% <1 -WORKERS COMPENSATION ADMINISTRATOR% 3.4 -VS% <1 AP-WORKERS COMPENSATION ADMINISTRATOR% 96.6 Specimen Performing Laboratory OTHER OUTSIDE LAB Narrative OP Clinic Check [05/18/2017 2:08:07 PM - REBEKAH BARAHONA] [05/19/2017 6:58:48 AM - JIMMY DALY] Dual chamber pacemaker programming.Device function appears normal. WORKERS COMPENSATION ADMINISTRATOR >99%. Pts underlying IN interval today ~360 ms. Last visit IN interval was 340 ms and AR interval 420 ms, and pt had wenckebach at at 60 bpm after AP. Last visit he was switched to DDDR to pace most of the time due to this. Events noted since 11/18/16: Atrial:233 Treated and 50 monitored AT/AF episodes. 3.3% AT/AF burden. Longest 10 hours. Egms show AF. Avg V rate mostly <100 bpm. Ventricular:0 Changes made to programming:none Carelink remote monitoring is in place. Will continue to monitor. Report given to KEN in clinic. in this encounter Visit Diagnoses Diagnosis Cardiac device in situ Unspecified cardiac device in situ in this encounter
--- OUTSIDE RECORDS SUMMARY | 2017-06-23 08:31 | XMS REPORT | Encounter Summary ---
Author Author [facility] Organization [facility] Address Unknown Phone Unavailable Care Team Providers Care Technology Lead Name Role Phone PCP Unavailable Encounter Details Date Type Department Care Team Description 04/25/2017 Orders Only [facility] Shalini Blake Paroxysmal atrial [address] fibrillation (HCC) [place] [address] Social History Tobacco Use Types Packs/Day Years Used Date Never Smoker Smokeless Tobacco: Never Used Alcohol Use Drinks/Week oz/Week Comments No Sex Assigned at Date Recorded Not on file as of this encounter Plan of Treatment Not on fileas of this encounter Results * TSH WITH FREE T4 REFLEX (04/24/2017) Component Value Ref Range T4-Free 0.98 TSH 6.17 (H) 0.49 - 4.67 Specimen Performing [place] [address] * LIVER FUNCTION PANEL (04/24/2017) Component Value Ref Range Total Bilirubin 0.7 Bilirubin, Direct 0.1 Albumin 4.1 Alk Phosphatase 50 AST (SGOT) 24 ALT (SGPT) 24 Total Protein Specimen Performing [place] [address] in this encounter Visit Diagnoses Diagnosis Paroxysmal atrial fibrillation (HCC) Atrial fibrillation in this encounter
--- OUTSIDE RECORDS SUMMARY | 2017-06-23 08:31 | XMS REPORT | Encounter Summary ---
Author Author [facility] Organization [facility] Address Unknown Phone Unavailable Care Team Providers Care Distributor Publications Name Role Phone PCP Unavailable Encounter Details Date Type Department Care Team Description 05/18/2017 Orders Only [facility] [place] [address] [place], [place] [id number] [place] [address] Social History Tobacco Use Types Packs/Day Years Used Date Never Smoker Smokeless Tobacco: Never Used Alcohol Use Drinks/Week oz/Week Comments No Sex Assigned at Date Recorded Not on file as of this encounter Plan of Treatment Not on fileas of this encounter Results * DIGOXIN LEVEL (05/18/2017 3:14 PM) Component Value Ref Range Digoxin 0.6 (L) 0.8 - 2.0 mcg/L Comment: LILLI Anti-Digoxin (Digibind(R)) in serum/plasma of patients under toxicity therapy may interfere with the digoxin immunoassay. Test Performed at: [facility] [address] [place] [address] CARLITOS HERNANDEZ DO,MPH Specimen Performing Laboratory [facility] [address] [place] [address] * THYROID STIMULATING HORMONE-TSH (05/18/2017 3:14 PM) Component Value Ref Range TSH 3rd Generation 5.02 (H) 0.40 - 4.50 mIU/L Comment: Test Performed at: [facility] [address] [place] [address] CARLITOS HERNANDEZ DO,MPH Specimen Performing Laboratory [facility] [address] [place] [address] * FREE T4 (FREE THYROXINE) ONLY (05/18/2017 3:14 PM) Component Value Ref Range T4-Free 1.3 0.8 - 1.8 ng/dL Comment: Test Performed at: [facility] [place] [address] [place] [address] CARLITOS HERNANDEZ DO,MPH Specimen Performing Laboratory [facility] [address] [place] [address] in this encounter Visit Diagnoses Not on filein this encounter
--- OUTSIDE RECORDS SUMMARY | 2017-06-23 08:31 | XMS REPORT | Encounter Summary ---
Author Author [facility] Organization [facility] Address Unknown Phone Unavailable Care Team Providers Care Rn Diabetes Name Role Phone PCP Unavailable Encounter Details Date Type Department Care Team Description 04/26/2017 Telephone [facility] [place] [address] [place], [place] [address] Social History Tobacco Use Types Packs/Day Years Used Date Never Smoker Smokeless Tobacco: Never Used Alcohol Use Drinks/Week oz/Week Comments No Sex Assigned at Date Recorded Not on file as of this encounter Miscellaneous Notes * Telephone Encounter - Sasha Chen RN - 04/26/2017 5:03 PM BODILY INJURY ADJUSTER refaxed order after Dr Trejo signed * Telephone Encounter - Sasha Chen RN - 04/26/2017 5:03 PM BODILY INJURY ADJUSTER ----- Message from Mena Dozier RN sent at 04/26/2017 1:28 PM BODILY INJURY ADJUSTER ----- Regarding: FW: VM-Chest X-ray ----- Message ----- From: Shalini Blake Sent: 04/26/2017 1:10 PM To: Олег Nurse Ep Subject: VM-Chest X-ray Yaquelin with [facility] calling. patient came in with chest x-ray order. They need a signed,date and timed order faxed to [phone] Call back is [phone] in this encounter Plan of Treatment Not on fileas of this encounter Visit Diagnoses Not on filein this encounter
--- OUTSIDE RECORDS SUMMARY | 2017-06-23 08:31 | XMS REPORT | Encounter Summary ---
Author Author [facility] Organization [facility] Address Unknown Phone Unavailable Care Team Providers Care Collar Feller Name Role Phone PCP Unavailable Reason for Visit * Reason Comments Results CXR completed outside hospital Encounter Details Date Type Department Care Team Description 05/09/2017 Documentation [facility] Sasha Chen, RN Results (CXR completed [address] outside hospital) [address] [place] [address] Social History Tobacco Use Types Packs/Day Years Used Date Never Smoker Smokeless Tobacco: Never Used Alcohol Use Drinks/Week oz/Week Comments No Sex Assigned at Date Recorded Not on file as of this encounter Progress Notes * Sasha Chen, RN - 05/09/2017 1:30 PM TRACTOR TECHNICIAN [facility]: 04/27/17 CXR Impression: [id number] hiatal hernia. cardiomegaly. will send report to be scanned in this encounter Plan of Treatment Not on fileas of this encounter Visit Diagnoses Not on filein this encounter
--- OUTSIDE RECORDS SUMMARY | 2017-06-23 08:31 | XMS REPORT | Encounter Summary ---
Author Author [facility] Organization [facility] Address Unknown Phone Unavailable Care Team Providers Care Serging Machine Operator Name Role Phone PCP Unavailable Encounter Details Date Type Department Care Team Description 05/18/[address] [facility] Cardiology Marty Trejo MD Cardiac device in situ Orders [address] [place] [place] [address] [place] [address] [phone] Social History Tobacco Use Types Packs/Day Years [...] # REVO MRI RVDR01 Generator Serial # [id number] Generator Implnat Date 10/18/2011 FÉLIX/EOL Indicator COUNTING MACHINE OPERATOR=2.81V Generator [employer] Medtronic Generator Investigational No Wireless Generator No Device Type DDD-PM Atrial Lead Model # CAPSUREFIX MRI SURESCAN 5086-52cm Atrial Lead Serial # [id number] Atrial Lead Implant Date 10/18/2011 Atrial Lead Diaph. 10 Stimulation Atrial Lead [employer] Medtronic Atrial Lead No Investigational Atrial Lead Fixation active fixation Atrial Lead Location right atrial appendage Atrial Lead Pin Connector IS1 Atrial Lead Polarity Bipolar RV Lead Model # CAPSUREFIX MRI SURESCAN 5086-58cm RV Lead Serial # [id number] RV Lead Implant Date 10/18/2011 RV Lead Diaph. 10 Stimulation RV Lead [employer] Medtronic RV Lead Investigational No RV Lead [...] Dr. Trejo Name EP Device Followed By [employer] Device [place] [employer] Transmitter Compatible On AntiCoag Date 10/10/16 Known Diagnosed AFib Yes On Anticoagulation Yes Generator MRI Conditional Yes Atrial Lead MRI Yes Conditional LV Lead MRI Conditional Yes Initial Rhythm AP-CONCRETE BUCKET UNLOADER Underlying Rhythm SB 51 bpm # Mode S. Events 233 Treated/50 monitored # High AT/AF Evts - Time in AT/AF 3.3% V Rate in AT/AF Mostly 100 bpm Single PVSc 1.4/hr (2.5) PVC runs 0.2/hr (0.6) Battery Voltage 2.95 (COUNTING MACHINE OPERATOR @ 2.81) A Sense mv 3.6 [...] Interrogation? Yes Remote Check? No -VS% <1 -CONCRETE BUCKET UNLOADER% 3.4 -VS% <1 AP-CONCRETE BUCKET UNLOADER% 96.6 Specimen Performing Laboratory OTHER OUTSIDE LAB Narrative OP Clinic Check [05/18/2017 2:08:07 PM - REBEKAH BARAHONA] [05/19/2017 6:58:48 AM - JIMMY DALY] Dual chamber pacemaker programming.Device function appears normal. CONCRETE BUCKET UNLOADER >99%. Pts underlying WV interval today ~360 ms. Last visit WV interval was 340 ms and AR interval [...]
--- OUTSIDE RECORDS SUMMARY | 2017-06-23 08:31 | XMS REPORT | Encounter Summary ---
Author Author [facility] Organization [facility] Address Unknown Phone Unavailable Care Team Providers Care Rehab Tech Name Role Phone PCP Unavailable Reason for Visit * Reason Comments Atrial fibrillation 6 month follow up Encounter Details Date Type Department Care Team Description 05/18/2017 Office Visit [facility] Cardiology Marty Trejo MD Atrial fibrillation ([address] month follow up) [address] [place] [address] [place] [address] [phone] Social History Tobacco Use Types Packs/Day Years Used Date Never Smoker Smokeless Tobacco: Never Used Alcohol Use Drinks/Week oz/Week Comments No Sex Assigned at Date Recorded Not on file as of this encounter Last Filed Vital Signs Vital Sign Reading Time Taken Blood Pressure 110/78 05/18/2017 1:22 PM TRIMMER TAILER Pulse 77 05/18/2017 1:22 PM TRIMMER TAILER Temperature - - Respiratory Rate - - Oxygen Saturation - - Inhaled Oxygen - - Concentration Weight 82 kg (180 lb 11.2 oz) 05/18/2017 1:22 PM TRIMMER TAILER Height 167.6 cm (5' 6") 05/18/2017 1:22 PM TRIMMER TAILER Body Mass Index 29.17 05/18/2017 1:22 PM TRIMMER TAILER in this encounter Instructions * Patient Instructions - Sasha Chen, STEVEN - 05/18/2017 1:30 PM TRIMMER TAILER Decrease your amioderone 100 mg per day have your labs drawn today: TSH, free T4, digoxin level call for lab results tomorrow if you do not receive them by phone take by mouth vitamin B12 Follow up with Dr Trejo once year with device check in this encounter Progress Notes * Marty Trejo MD - 05/18/2017 1:30 PM TRIMMER TAILER Formatting of this note may be different from the original. Date of Service: 05/18/2017 Faiza Nation is a 82 y.o. female. HPI I had the pleasure of seeing your patient Faiza Nation in the [facility] as a part of the [facility] office today for follow up regarding her Atrial Fibrillation and Permanent Pacemaker. Her Primary Transportation Sales Consultant is my friend and colleague, Dr. Gruber in [place], [place]. Ms. Nation is an exceptionally pleasant 82 y.o. Female, who is accompanied by her equally pleasant daughter. The past medical history and data below has been reviewed and updated by me with new events for today's visit. Her PMHx briefly includes: Paroxysmal Atrial Fibrillation; SND S/P Medtronic PPM-- Programmed AAIR (10/18/11); Prior Reveal ILR-- Removed at PPM Implant; Myxomatous Mitral Valve Disease; Non-Obstructive Mild-Moderate CAD by Cardiac Cath (12/2012); Negative Carotid Duplex (11/2015); Hypertension; Hyperlipidemia; Hypothyroidism; Prior GI Bleed while on Warfarin-- GERD/PUD/Hiatal Hernia; and Dementia. NOTE: When her device was programmed DDDR, she had a markedly prolonged First Degree AV Block up to 410 ms during A-only pacing. She has a [id number] score of 4: Age (x2), Female, HTN. Prior GI Bleed while on Warfarin. Regarding her AFIB, Device Hx, etc: Please see Problem List and Prior OV notes including 12/31/15 and Initial Consultation note for greater detail. However, briefly: -- 2010: Sxs of palpitations --> Medtronic Reveal Implantable Looping Monitor Implanted by Dr. Gruber --> ILR Documented Intermittent AFIB and Bradycardia/ Pauses. -- 2011: Medtronic PPM Implanted by Dr. Sosa-- originally programmed DDDR, but later changed to AAIR for markedly prolonged First Degree AV Block up to 410 ms during A-only pacing. Initiated Sotalol. -- 06/2013: EP Consultation: Recurrent AFIB --> Reinitiated Metoprolol. -- 09/2013: Elevated Digoxin level --> Changed to [id number] dosing. -- 10/2014: Recurrent AFIB --> DC'ed Sotalol, Initiated Amiodarone --> Improved AFIB Reliance. -- 12/31/15: Elevated LFTs --> Decreased Amiodarone --> LFTs Normalized. Regarding her Prior Sxs of CP: Please see Problem List and Prior OV notes including 12/31/15 and Initial Consultation note for greater detail. However, briefly: -- 2012: Stress Imaging for Sxs of CP (OSH): Reportedly with Normal LV Function and No Evidence of Significant Ischemia. -- 2012: Echo: LVEF 70%. LA Dimension 4.3 cm. Myxomatous MV Degeneration. Septal and Posterior Wall Thickness 1 cm. -- 12/2012: Cardiac Cath: 30% Mid-LAD, 40%-50% RCA diffusely. -- 05/2015: Sxs of chest discomfort --> Presented to ED in [place], [place]. Her evaluation was apparently unremarkable. She followed up with Dr. Nieves office. The nurse practitioner recommended a Lexiscan stress imaging study, but the patient/family refused. 06/05/15: Continued Sxs of intermittent chest discomfort, occasionally with associated palpitations/SOA.Device interrogation demonstrated thousands of episodes of AFIB since 09/2014. However, since 02/2015, her AF burden had been dramatically low. Her V-rates had been under good control. Thus, given that her AFIB did not clearly explain her Sxs, I concurred with Dr. Nieves office, and also recommended a stress imaging study, which she would obtain via Dr. Gruber's office. -- 11/18/16: OV (Dr. Trejo): Increased Amiodarone to 200 mg daily. For increased AFIB burden to 6.5% She STATES she has been experiencing episodes of lightheadedness while getting out of bed. She also notes that when she lays down, she has vertiginous symptoms. She complains of weakness in her legs and "all over." She also states she walks like she is "drunk or something". She describes weakness in her arms when she wakes up in the morning, which improves later in the day. She is currently not exercising, which she blames on her weakness and fatigue. She also has had some nausea. She denies any chest discomfort, shortness of breath, palpitations, dizziness, near syncope or syncope, PND or orthopnea. FHx, SHx and ROS documented and I have reviewed, with some pertinent features to include: No FHx of premature CAD. She is a Non-Smoker. Most pertinent ROS is included/discussed throughout the note, e.g. HPI and A/P. ASSESSMENT AND PLAN: -- PAFIB -- Anticoagulation -- Amiodarone Therapy -- Dyspnea when Supine -- Chest Discomfort -- Medtronic DDDR Permanent Pacemaker -- Prior Increased LFTs -- NSVT -- Hypertension Ms. Nation has multiple constitutional complaints today. She has had some issues with postural lightheadedness when she goes from lying down to sitting up but then wakes a minute and resolves. I do not feel that warrants any change in therapy at this time. But she also on further dialogue is been having issues with balance stating she walks like a "drunk." This certainly could be related to ataxia induced by amiodarone. We will decrease her amiodarone down to 100 mg daily or half tablet. She tolerated this dosage before. If that does not improve his symptoms and I recommended that she discuss this further with her primary care physician or neurologist to see if head CT is warranted. From a AFIB standpoint her burden is been cut in half since we increased the amiodarone. As noted we will decrease the amiodarone back down to 100 mg daily. However even if her burden goes back up to the 6% range It is unlikely that will be driving the majority of her symptoms. She is not a candidate for an ablation procedure. And frankly I think is tolerating her atrial arrhythmias well. Although I do not suspect her generalized weakness is from a cardiac problem. Her nausea and some of her other constitutional symptoms certainly could still be related to the amiodarone. It also could be related to digoxin levels that are too high since she has been on a higher dose of amiodarone. Again we will decrease the dose of Amiodarone but will also check a digoxin level. Also check a CMP. She had some LFTs back in early April that were normal. Is also worth noting that back in April her TSH was elevated at 6.17. She is on thyroid replacement hormone. That certainly could cause some of her constitutional symptoms potentially. Therefore we will recheck her TSH as well as check a free T4. It is possible she just has euthyroid sick syndrome. Pending those results we may notify her family physician to follow this further adjust her medication accordingly. Next She also states she feels tremendously better with more energy after she gets her B12 shot but that is infrequent. I have encouraged her to try an over-the- counter B12 vitamin and instructed her that may give her "newfound energy." I also asked her to try and increase exercise as able. PLAN: -- Decrease Amiodarone to 100 mg per day -- We will check a Digoxin level today -- We will check labs including a TSH and Free T4 -- I instructed her she can take over the counter Vitamin B12 along with her bi- weekly B12 shot -- Call our office for lab results Ms. Nation was educated regarding plan of care. She was instructed to call our office with any questions or concerns, as well as to notify us of any new or worsening symptoms. She verbalized understanding. I appreciate the opportunity to participate in the care of your patient. Please do not hesitate to contact me directly if you have any questions or further insights into her care. I have scheduled her follow-up with me in 12 month(s). Vitals: 05/18/17 1322 BP: 110/78 Pulse: 77 Weight: 82 kg (180 lb 11.2 oz) Height: 1.676 m (5' 6") Body mass index is 29.17 kg/(m^2). Past Medical History Patient Active Problem List Diagnosis Date Noted Chest pain 07/01/2014 05/21/14: Left heart cath: LV pressure 125/11, [...] EF 65% Hiatal hernia 03/13/2013 Bradycardia 10/18/2011 10-18-11 Medtronic dual chamber PPM implanted by Dr. Sheila Peralta Sotalol initiation 10-18-11 Hypertension Hyperlipidemia 09/14/2011 Lipid Profile: Cholesterol: 171, Triglyceride: 132, HDL: 39, LDL: 106 Paroxysmal atrial fibrillation (HCC) Hx of brief AF, CHADS score 2, ASA Hypothyroidism Dementia Anxiety Near syncope 09/16/2011 09/14/11 hospital admission to [facility] in [place], [place]. Reveal device 9529 implanted by Allyn Petit MD. Cardiac pacemaker in situ 08/18/2011 09/16/11 Reveal device 9529, Medtronic. Review of Systems Constitution: Positive for chills, diaphoresis, weakness and malaise/fatigue. HENT: Positive for ear pain and odynophagia. Eyes: Positive for blurred vision. Cardiovascular: Positive for chest pain, claudication, dyspnea on exertion, irregular heartbeat, orthopnea and palpitations. Respiratory: Positive for shortness of breath. Endocrine: Negative. Hematologic/Lymphatic: Negative. Skin: Positive for dry skin and itching. Musculoskeletal: Positive for arthritis, back pain, joint pain, muscle cramps, myalgias, neck pain and stiffness. Gastrointestinal: Positive for abdominal pain, change in bowel habit, diarrhea, dysphagia, heartburn and nausea. Genitourinary: Negative. Neurological: Positive for focal weakness, headaches, light-headedness, loss of balance, paresthesias and tremors. Psychiatric/Behavioral: The patient has insomnia. Allergic/Immunologic: Negative. Physical Exam Constitutional: She is in no acute distress, resting comfortably. Skin/Integument: Warm and dry. Eyes: PERRL, sclera are non-icteric and no xanthelasmas noted. ENT: Hearing is intact, Oropharynx is clear and moist. Heme/Lym/Immun: Supple neck, without thyromegaly. Respiratory-Pulmonary/Chest: Effort normal and breath sounds normal. No respiratory distress or accessory muscle use. No obvious tracheal deviation. Clear to auscultation bilaterally. Cardiovascular: No evidence of increased jugular venous pressure, carotids are 2+/4+ equal bilaterally. Regular rhythm, S1, S2. 1/6 systolic murmur noted at the RUSB. No heaves, thrills or rubs. Musc/Skeletal-Extremities: With 1+ pretibial and pedal pitting peripheral edema on the right, slightly worse on the left. With what appears to be full ROM. Device Site: Is in her left infraclavicular region and well-healed. Neuro: Patient is alert and oriented to person, place, and time. Psych: Patient does not appear anxious, she appears appropriate, with normal non-pressured speech and what appears to be appropriate judgement Cardiovascular Studies ECG today demonstrates AV paced rhythm at 77 bpm. Full device check performed with reprogramming which I have extensively reviewed. Changes, if done, as discussed below and is detailed in other dictation/note. 97% atrial paced; 100% ventricular paced; AFIB burden is 3.3% with the majority of the time her rates being less than 100 bpm. In the past we have assessed her underlying rhythm which shows sinus bradycardia 51 bpm with a markedly prolonged IA interval of 360+ ms in the past is even been 420 ms. She also has pacemaker Wenckebach at 60 bpm. Therefore she is pacing in the ventricle 100% of the time. She has had 280 mode switch events the longest was 10 hours in duration most recent was in fact today at 1 in the morning lasting nearly 3 minutes. Review of the electrograms documents clear atrial fibrillation. 235/280 episodes are ATP terminated. Problems Addressed Today Encounter Diagnoses Name Primary? Paroxysmal atrial fibrillation (HCC) Yes Cardiac pacemaker in situ Current Medications (including today's revisions) alprazolam (XANAX) 0.25 mg tablet Take 0.25 mg by mouth twice daily as needed. amiodarone (CORDARONE) 200 mg tablet Take 0.5 tablets by mouth daily. Take with food. amLODIPine (NORVASC) 5 mg tablet Take 5 mg by mouth daily. BUSPIRONE HCL (BUSPAR PO) Take 15 mg by mouth twice daily. Cholecalciferol (Vitamin D3) (VITAMIN D-3) 5,000 unit tab Take 5,000 Units by mouth daily. cyanocobalamin (VITAMIN B-12, RUBRAMIN) 1,000 mcg/mL injection Inject 1 mL into the muscle every 14 days. dabigatran (PRADAXA) 150 mg capsule Take 150 mg by mouth twice daily. digoxin (LANOXIN) 125 mcg tablet Take 1 Tab by mouth every 48 hours. donepezil (ARICEPT) 10 mg tablet Take 10 mg by mouth At Bedtime Daily. Erythromycin 250 mg cpDR Take 1 Cap by mouth three times daily before meals. furosemide (LASIX) 40 mg tablet Take 40 mg by mouth daily. levothyroxine (SYNTHROID) 125 mcg tablet Take 125 mcg by mouth daily 30 minutes before breakfast. liothyronine (CYTOMEL) 5 mcg tab Take 5 mcg by mouth twice daily. losartan (COZAAR) 100 mg tablet Take 100 mg by mouth Daily. meloxicam(+) (MOBIC) 15 mg tablet Take 15 mg by mouth daily. metoprolol tartrate (LOPRESSOR) 25 mg tablet Take 25 mg by mouth twice daily. [place]-3 Acid Ethyl Esters (LOVAZA) 1 gram cap Take 1 Cap by mouth four times daily. pantoprazole DR (PROTONIX) 40 mg tablet Take 40 mg by mouth twice daily. potassium chloride SR (K-DUR) 20 mEq tablet Take 20 mEq by mouth daily. sertraline (ZOLOFT) 50 mg tablet Take 50 mg by mouth daily. sucralfate (CARAFATE) 1 gram tablet Take 1 g by mouth at bedtime daily. topiramate (TOPAMAX) 25 mg tablet Take 25 mg by mouth twice daily. traMADol (ULTRAM) 50 mg tablet Take 50 mg by mouth every 6 hours as needed. Documentation recorded by Josh Acevedo, acting as scribe for Marty Trejo M.D. in this encounter Plan of Treatment Name Priority Associated Diagnoses Order Schedule ECG 12-LEAD Routine Paroxysmal atrial Ordered: 05/18/2017 fibrillation (HCC) Cardiac pacemaker in situ as of this encounter Visit Diagnoses Diagnosis Paroxysmal atrial fibrillation (HCC) - Primary Atrial fibrillation Cardiac pacemaker in situ in this encounter
--- OUTSIDE RECORDS SUMMARY | 2017-06-23 08:31 | XMS REPORT | Clinical Summary ---
Author Author [facility] Organization [facility] Address Unknown Phone Unavailable Care Team Providers Care Feed Weigher Name Role Phone PCP Unavailable Source Comments Some departments are not documenting in the electronic medical record. If you do not see the information that you expected, contact Release of Information in the Health Information Management department at [phone] for further assistance in locating additional records.[facility] Allergies Active Allergy Reactions Severity Noted Date Comments Codeine NAUSEA AND VOMITING 12/01/2008 Morphine NAUSEA AND VOMITING 12/01/2008 Penicillins UNKNOWN Low 12/31/2015 Current Medications Prescription Sig. Disp. Refills Start [...] every Active tablet 6 hours as needed. [place]-3 Acid Ethyl Esters Take 1 Cap by mouth four 360 Cap 2 04/11/20 Active (LOVAZA) 1 gram cap times daily. 12 sertraline (ZOLOFT) 50 mg Take 50 mg by mouth Active tablet daily. potassium chloride SR Take 20 mEq by mouth Active (K-DUR) 20 mEq tablet daily. sucralfate (CARAFATE) 1 Take 1 g by mouth at Active gram tablet bedtime daily. furosemide (LASIX) 40 mg Take 40 mg by mouth Active tablet daily. digoxin (LANOXIN) 125 mcg Take 1 Tab by mouth every 90 Tab 07/08/19 Active tablet 48 hours. 14 amLODIPine (NORVASC) 5 mg Take 5 mg by mouth daily. Active tablet dabigatran (PRADAXA) 150 Take 150 mg by mouth Active mg capsule twice daily. BUSPIRONE HCL (BUSPAR PO) Take 15 [...] twice Active (PROTONIX) 40 mg tablet daily. cyanocobalamin (VITAMIN Inject 1 mL into the Active B-12, RUBRAMIN) 1,000 muscle every 14 days. mcg/mL injection levothyroxine (SYNTHROID) Take 125 mcg by mouth Active 125 mcg tablet daily 30 minutes before breakfast. Cholecalciferol (Vitamin Take 5,000 Units by mouth Active D3) (VITAMIN D-3) 5,000 daily. unit tab metoprolol tartrate Take 25 mg by mouth twice Active (LOPRESSOR) 25 mg tablet daily. amiodarone (CORDARONE) Take 0.5 tablets by mouth 45 tablet 3 05/22/20 Active 200 mg tablet daily. Take with food. 17 Active Problems Problem Noted Date Chest pain [...] syncope 09/16/2011 Overview: 09/14/11 hospital admission to [facility] in [place], [place]. Reveal device 9529 implanted by Allyn Petit MD. Cardiac pacemaker in situ 08/18/2011 Overview: 09/16/11 Reveal device 9529, Medtronic. [...] Medical treatment, started Plavix. 09/14/11 Admitted to [facility] ( [facility]) with CP & palpitations. Stress test Lexiscan Myoview) showed no ischemia. EF 65% Echocardiogram: EF 70%. Mild LVH. La size 4.3cm. Mitral valve with myxomatous degeneration, mild MR. Palpitations 10/20/2011 Lower GI bleeding 10/18/2011 Encounters Date Type Specialty Care Team Description 05/22/2017 Telephone Cardiology Leann Nguyen RN Medication Question (verify Amiodarone instructions) 05/19/2017 Documentation Cardiology Sasha Chen RN Amiodarone Monitoring (completed 05/18/17 due 11/15/16) 05/18/2017 Lab Only Internal Medicine Paroxysmal atrial fibrillation (HCC);Cardiac pacemaker in situ 05/18/2017 Office Visit Cardiology Marty Trejo MD Atrial fibrillation (6 month follow up) 05/18/2017 Hospital Cardiology Marty Trejo MD Encounter 05/18/2017 Orders Only Cardiology Marty Trejo MD 05/18/2017 Ancillary Cardiology Marty Trejo MD Cardiac device in situ Orders 05/09/2017 Documentation Cardiology Sasha Chen RN Results (CXR completed outside hospital) 04/26/2017 Telephone Cardiology Sasha Chen RN 04/25/2017 Orders Only Cardiology Shalini Blake Paroxysmal atrial fibrillation (HCC) 04/19/2017 Documentation Cardiology Andrea Asencio RN Amiodarone Monitoring (due for labs & CXR, letter & reqs sent.) from Last 3 Months Family History Medical History Relation Name Comments Heart Attack Brother Stroke Mother Relation Name Status Comments Brother Father Mother Social History Tobacco Use Types Packs/Day Years Used Date Never Smoker Smokeless Tobacco: Never Used Alcohol Use Drinks/Week oz/Week Comments No Sex Assigned at Date Recorded Not on file Last Filed Vital Signs Vital Sign Reading Time Taken Blood Pressure 110/78 05/18/2017 1:22 PM IRONWORKER Pulse 77 05/18/2017 1:22 PM IRONWORKER Temperature 36.5 C (97.7 F) 05/01/2013 11:23 AM IRONWORKER Respiratory Rate 18 03/07/2013 2:25 PM CDT Oxygen Saturation 98% 05/01/2013 11:23 AM IRONWORKER Inhaled Oxygen - - Concentration Weight 82 kg (180 lb 11.2 oz) 05/18/2017 1:22 PM IRONWORKER Height 167.6 cm (5' 6") 05/18/2017 1:22 PM IRONWORKER Body Mass Index 29.17 05/18/2017 1:22 PM IRONWORKER Plan of Treatment Health Maintenance Due Date Last Done Comments PHYSICAL (COMPREHENSIVE) 1941 EXAM PERTUSSIS VACCINE 1945 TETANUS VACCINE 1951 SHINGLES VACCINE 1994 OSTEOPOROSIS SCREENING 1999 PREVNAR/PNEUMOVAX (#1) 1999 INFLUENZA VACCINE 01/17/2017 Results * THYROID STIMULATING HORMONE-TSH (05/18/2017 3:14 PM) Component Value Ref Range TSH 3rd Generation 5.02 (H) 0.40 - 4.50 mIU/L Comment: Test Performed at: [facility] [address] CARLITOS HERNANDEZ DO,MPH Specimen Performing Laboratory [facility] [address] [place] [id number] * FREE T4 (FREE THYROXINE) ONLY (05/18/2017 3:14 PM) Component Value Ref Range T4-Free 1.3 0.8 - 1.8 ng/dL Comment: Test Performed at: [facility] [address] CARLTIOS HERNANDEZ DO,MPH Specimen Performing Laboratory [facility] [address] [place] [id number] * DIGOXIN LEVEL (05/18/2017 3:14 PM) Component Value Ref Range Digoxin 0.6 (L) 0.8 - 2.0 mcg/L Comment: [facility] Anti-Digoxin (Digibind(R)) in serum/plasma of patients under toxicity therapy may interfere with the digoxin immunoassay. Test Performed at: [email or web address] [id number] [place] [address] CARLITOS HERNANDEZ DO,MPH Specimen Performing Laboratory [facility] [address] [place] [address] * DEVICE EVALUATION - PPM (05/18/2017 1:16 PM) Component Value Ref Range Generator Model # REVO MRI RVDR01 Generator Serial # [id number] Generator Implnat Date 10/18/2011 FÉLIX/EOL Indicator NOC ENGINEER=2.81V Generator Car Rental Deliverer Med[employer] Generator Investigational No Wireless Generator No Device Type DDD-PM Atrial Lead Model # CAPSUREFIX MRI SURESCAN 5086-52cm Atrial Lead Serial # [id number] Atrial Lead Implant Date 10/18/2011 Atrial Lead Diaph. 10 Stimulation Atrial Lead Car Rental Deliverer Medtronic Atrial Lead No Investigational Atrial Lead Fixation active fixation Atrial Lead Location right atrial appendage Atrial Lead Pin Connector IS1 Atrial Lead Polarity Bipolar RV Lead Model # CAPSUREFIX Verdiem SURESCAN 5086-58cm RV Lead Serial # [id number] RV Lead Implant Date 10/18/2011 RV Lead Diaph. 10 Stimulation RV Lead Car Rental Deliverer Medtronic RV Lead Investigational No RV Lead [...] Dr. Trejo Name EP Device Followed By Perkle Device [place] [facility] Transmitter Compatible On AntiCoag Date 10/10/16 Known Diagnosed AFib Yes On Anticoagulation Yes Generator MRI Conditional Yes Atrial Lead MRI Yes Conditional LV Lead MRI Conditional Yes Initial Rhythm AP-TABLE MAKER Underlying Rhythm SB 51 bpm # Mode S. Events 233 Treated/50 monitored # High AT/AF Evts - Time in AT/AF 3.3% V Rate in AT/AF Mostly 100 bpm Single PVSc 1.4/hr (2.5) PVC runs 0.2/hr (0.6) Battery Voltage 2.95 (NOC ENGINEER @ 2.81) A Sense mv 3.6 A [...] Interrogation? Yes Remote Check? No -VS% <1 -TABLE MAKER% 3.4 -VS% <1 AP-TABLE MAKER% 96.6 Specimen Performing Laboratory OTHER OUTSIDE LAB Narrative OP Clinic Check [05/18/2017 2:08:07 PM - REBEKAH BARAHONA] [05/19/2017 6:58:48 AM - JIMMY DALY] Dual chamber pacemaker programming.Device function appears normal. TABLE MAKER >99%. Pts underlying CT interval today ~[address]. [address] interval was 340 ms and AR interval [...] Will continue to monitor. Report given to MPE in clinic. * TSH WITH FREE T4 REFLEX (04/24/2017) Component Value Ref Range T4-Free 0.98 TSH 6.17 (H) 0.49 - 4.67 Specimen Performing Laboratory [facility] [address] , [address] [place] [address] * LIVER FUNCTION PANEL (04/24/2017) Component Value Ref Range Total Bilirubin 0.7 Bilirubin, Direct 0.1 Albumin 4.1 Alk Phosphatase 50 AST (SGOT) 24 ALT (SGPT) 24 Total Protein Specimen Performing Laboratory [facility] [address] , [address] [place] [address] from Last 3 Months
--- OUTSIDE RECORDS SUMMARY | 2017-06-23 08:35 | XMS REPORT | Continuity of Care Document ---
Author Author [facility] Organization [facility] Address Unknown Phone Unavailable Allergies Active Description Code Type Severity Reaction Onset Reported/Identified Relationship to Patient Clinical Status Yes codeine [id number] Drug Allergy Unknown N/A 09/09/2008 Yes hydrochlorothiazide [id number] Drug Allergy Unknown N/A 09/09/2008 Yes morphine [id number] Drug Allergy Unknown N/A 09/09/2008 Medications There is no data. Problems Date Dx Coded Attending Type Code Diagnosis Diagnosed By 06/10/2010 Ot 211.1 06/10/2010 Ot 530.3 06/10/2010 Ot 530.81 06/10/2010 Ot 536.3 06/10/2010 Ot 553.3 09/16/2011 Ot 244.9 HYPOTHYROIDISM NOS 09/16/2011 Ot 272.4 HYPERLIPIDEMIA NEC/NOS 09/16/2011 Ot 294.20 DEMENTIA, UNSPECIFIED, WITHOUT BEHAVIORA 09/16/2011 Ot 300.00 ANXIETY STATE NOS 09/16/2011 Ot 401.9 HYPERTENSION NOS 09/16/2011 Ot 715.90 OSTEOARTHROS NOS-UNSPEC 09/16/2011 Ot 780.2 SYNCOPE AND COLLAPSE 09/16/2011 Ot 785.1 PALPITATIONS 09/16/2011 Ot 786.50 CHEST PAIN NOS 09/16/2011 Ot V58.66 LONG-TERM ( CURRENT) USE OF ASPIRIN 09/16/2011 Ot V58.69 OTH MED,LT, CURRENT USE 10/11/2011 Ot 211.3 BENIGN NEOPLASM LG BOWEL 10/11/2011 Ot 455.0 INT HEMORRHOID W/O COMPL 10/11/2011 Ot 569.3 RECTAL ANAL HEMORRHAGE 05/07/2012 Ot 272.0 PURE HYPERCHOLESTEROLEM 05/07/2012 Ot 401.9 HYPERTENSION NOS 05/07/2012 Ot 530.3 ESOPHAGEAL STRICTURE 05/07/2012 Ot 530.81 ESOPHAGEAL REFLUX 05/07/2012 Ot 553.3 DIAPHRAGMATIC HERNIA 05/07/2012 Ot V58.69 OTH MED,LT, CURRENT USE 09/24/2012 Ot 592.0 CALCULUS OF KIDNEY 09/24/2012 Ot 789.04 ABDOMINAL PAIN, LEFT LOWER QUADRANT 12/21/2012 ARUNA EGAN MD Ot 244.9 HYPOTHYROIDISM NOS 12/21/2012 ARUNA EGAN MD Ot 250.00 DIAB YONI WO COMPL, TYPE II OR UNSPEC TY 12/21/2012 ARUNA EGAN MD Ot 272.4 HYPERLIPIDEMIA NEC/NOS 12/21/2012 ARUNA EGAN MD Ot 275.49 OTH DISORD/CALCIUM METABOLISM 12/21/2012 ARUNA EGAN MD Ot 276.8 HYPOPOTASSEMIA 12/21/2012 ARUNA EGAN MD Ot 285.1 AC POSTHEMORRHAG ANEMIA 12/21/2012 ARUNA EGAN MD Ot 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 12/21/2012 ARUNA EGAN MD Ot 300.00 ANXIETY STATE NOS 12/21/2012 ARUNA EGAN MD Ot 331.0 ALZHEIMER'S DISEASE 12/21/2012 ARUNA EGAN MD Ot 401.9 HYPERTENSION NOS 12/21/2012 ARUNA EGAN MD Ot 410.71 AC MYOCARDIAL INFARCT,SUBENDO INFARCT,IN 12/21/2012 ARUNA EGAN MD Ot 414.01 CORONARY ATHEROSCLEROSIS OF [place] CORON 12/21/2012 ARUNA EGAN MD Ot 427.0 PAROX ATRIAL TACHYCARDIA 12/21/2012 ARUNA EGAN MD Ot 427.31 ATRIAL FIBRILLATION 12/21/2012 ARUNA EGAN MD Ot 429.3 CARDIOMEGALY 12/21/2012 ARUNA EGAN MD Ot 458.29 OTHER IATROGENIC HYPOTENSION 12/21/2012 ARUNA EGAN MD Ot 712.33 CHONDROCALC NOS-FOREARM 12/21/2012 ARUNA EGAN MD Ot 715.90 OSTEOARTHROS NOS-UNSPEC 12/21/2012 ARUNA EAGN MD Ot 998.12 HEMATOMA COMPLIC A PROC 12/21/2012 ARUNA EGAN MD Ot V45.01 CARDIAC PACEMAKER IN SITU 11/25/2013 KALIAJAMES Anderson DO Ot 244.9 HYPOTHYROIDISM NOS 11/25/2013 KALIAJAMES Anderson DO Ot 272.0 PURE HYPERCHOLESTEROLEM 11/25/2013 JAMES MOTTA DO Ot 294.20 DEMENTIA, UNSPECIFIED, WITHOUT BEHAVIORA 11/25/2013 JAMES MOTTA DO Ot 300.00 ANXIETY STATE NOS 11/25/2013 JAMES MOTTA DO Ot 338.29 OTHER CHRONIC PAIN 11/25/2013 KALIA JAMES DICK Ot 401.9 HYPERTENSION NOS 11/25/2013 JAMES MOTTA DO Ot 530.81 ESOPHAGEAL REFLUX 11/25/2013 JAMES MOTTA DO Ot 553.3 DIAPHRAGMATIC HERNIA 11/25/2013 JAMES MOTTA DO Ot 715.90 OSTEOARTHROS NOS-UNSPEC 11/25/2013 JAMES MOTTA DO Ot 724.5 BACKACHE NOS 11/25/2013 JAMES MOTTA DO Ot 786.50 CHEST PAIN NOS 05/22/2014 CURT ARAGON MD Ot 244.9 HYPOTHYROIDISM NOS 05/22/2014 CURT ARAGON MD Ot 300.4 DYSTHYMIC DISORDER 05/22/2014 CURT ARAGON MD Ot 401.9 HYPERTENSION NOS 05/22/2014 CURT ARAGON MD Ot 412 OLD MYOCARDIAL INFARCT 05/22/2014 CURT ARAGON MD Ot 414.01 CORONARY ATHEROSCLEROSIS OF [place] CORON 05/22/2014 CURT ARAGON MD Ot 416.8 CHR PULMON HEART DIS NEC 05/22/2014 CURT ARAGON MD Ot 427.31 ATRIAL FIBRILLATION 05/22/2014 CURT ARAGON MD Ot 427.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 05/22/2014 CURT ARAGON MD Ot 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 05/22/2014 CURT ARAGON MD Ot 794.30 ABN CARDIOVASC STUDY NOS 05/22/2014 CURT ARAGON MD Ot V45.01 CARDIAC PACEMAKER IN SITU 05/22/2014 CURT ARAGON MD, Ot V58.61 ANTICOAGULANTS,LT,CURRENT USE 05/22/2014 CURT ARAGON MD, Ot V58.69 OTH MED,LT,CURRENT USE 06/02/2014 KYLE YANG Ot 272.4 06/02/2014 KYLE YANG Ot 401.9 06/02/2014 SUE YANGDITH K Ot 414.00 06/02/2014 JACQUES PA, KYLE K Ot 786.50 06/05/2014 JACQUES PA, KYLE K Ot 272.4 06/05/2014 JACQUES PA, KYLE K Ot 396.3 06/05/2014 JACQUES PA, KYLE K Ot 397.0 06/05/2014 JACQUES PA, KYLE K Ot 401.9 06/05/2014 JACQUES PA, KYLE K Ot 414.00 06/05/2014 JACQUES PA, KYLE K Ot 429.3 06/05/2014 JACQUES QUINTANILLA, KYLE Natali Ot 786.50 10/22/2014 [place], AIDA Ibarra Ot 272.0 PURE HYPERCHOLESTEROLEM 10/22/2014 [place], AIDA Ibarra Ot 300.00 ANXIETY STATE NOS 10/22/2014 [place], AIDA Ibarra Ot 311 DEPRESSIVE DISORDER NEC 10/22/2014 [place], AIDA Ibarra Ot 401.9 HYPERTENSION NOS 10/22/2014 [place], AIDA Ibarra Ot 427.31 ATRIAL FIBRILLATION 10/22/2014 [place], AIDA Ibarra Ot 428.0 CONGESTIVE HEART FAILURE NOS 10/22/2014 [place], AIDA Ibarra Ot 593.9 RENAL URETERAL DIS NOS 10/22/2014 [place], AIDA Ibarra Ot 724.5 BACKACHE NOS 10/22/2014 [place], AIDA Ibarra Ot 786.09 RESPIRATORY ABNORM NEC 10/22/2014 [place], AIDA Ibarra Ot V45.01 CARDIAC PACEMAKER IN SITU 11/18/2014 Ot 396.3 11/18/2014 Ot 397.0 11/18/2014 Ot 414.00 11/18/2014 Ot 427.31 11/18/2014 Ot 429.3 11/18/2014 Ot 786.50 11/18/2014 Ot 414.00 11/18/2014 Ot 427.31 11/18/2014 Ot 786.50 11/18/2014 Ot 414.01 11/18/2014 Ot 786.50 11/18/2014 Ot V58.69 11/18/2014 Ot 611.71 11/18/2014 Ot 753.10 11/18/2014 Ot 790.4 11/18/2014 Ot 780.4 11/18/2014 Ot 786.09 11/18/2014 Ot 786.50 11/18/2014 Ot V72.84 11/18/2014 Ot V76.12 11/18/2014 Ot 793.80 11/18/2014 Ot V72.84 11/18/2014 [place] NATION, ARUNA Vale Ot 611.71 11/18/2014 [place], CURT J Ot 401.9 11/18/2014 [place], CURT J Ot 414.00 11/18/2014 [place], CURT J Ot 434.91 11/18/2014 [place]ENEL[place] NATION, PJ I Ot 553.3 11/18/2014 [place] NATION, PJ I Ot 593.2 11/18/2014 [place] NATION, PJ I Ot 789.00 11/18/2014 [place] NATION, ARUNA Vale Ot V76.12 11/18/2014 MADRIGAL-ALEXANDER PA, KYLE K Ot 272.4 11/18/2014 MADRIGAL-ALEXANDER PA, KYLE K Ot 396.3 11/18/2014 MADRIGAL-ALEXANDER PA, KYLE K Ot 397.0 11/18/2014 MADRIGAL-ALEXANDER PA, KYLE K Ot 401.9 11/18/2014 MADRIGAL-ALEXANDER PA, KYLE K Ot 414.00 11/18/2014 MADRIGAL-ALEXANDER PA, KYLE K Ot 429.3 11/18/2014 MADRIGAL-ALEXANDER PA, KYLE K Ot 786.50 11/18/2014 MADRIGAL-ALEXANDER PA, KYLE K Ot 272.4 11/18/2014 MADRIGAL-ALEXANDER PA, KYLE K Ot 401.9 11/18/2014 MADRIGAL-ALEXANDER PA, KYLE K Ot 414.00 11/18/2014 MADRIGAL-ALEXANDER PA, KYLE K Ot 786.50 12/10/2014 [place], BERTHA Daniels Ot 427.31 12/22/2014 Ot 396.3 12/22/2014 Ot 397.0 12/22/2014 Ot 414.00 12/22/2014 Ot 427.31 12/22/2014 Ot 429.3 12/22/2014 Ot 786.50 12/22/2014 Ot 414.00 12/22/2014 Ot 427.31 12/22/2014 Ot 786.50 12/22/2014 Ot 414.01 12/22/2014 Ot 786.50 12/22/2014 Ot V58.69 12/22/2014 Ot 611.71 12/22/2014 Ot 753.10 12/22/2014 Ot 790.4 12/22/2014 Ot 780.4 12/22/2014 Ot 786.09 12/22/2014 Ot 786.50 12/22/2014 Ot V72.84 12/22/2014 Ot V76.12 12/22/2014 Ot 793.80 12/22/2014 Ot V72.84 12/22/2014 [place], ARUNA Vale Ot 611.71 12/22/2014 [place], CURT [place]ca Ot 401.9 12/22/2014 [place], CURT J Ot 414.00 12/22/2014 [place], CURT J Ot 434.91 12/22/2014 [place], PJ I Ot 553.3 12/22/2014 [place] N[place], PJ I Ot 593.2 12/22/2014 [place] NATION, PJ I Ot 789.00 12/22/2014 [place], ARUNA Vale Ot V76.12 12/22/2014 MADRIGAL-ALEXANDER PA, KYLE K Ot 272.4 12/22/2014 MADRIGAL-ALEXANDER PA, KYLE K Ot 396.3 12/22/2014 MADRIGAL-ALEXANDER PA, KYLE K Ot 397.0 12/22/2014 MADRIGAL-ALEXANDER PA, KYLE K Ot 401.9 12/22/2014 MADRIGAL-ALEXANDER PA, KYLE K Ot 414.00 12/22/2014 MADRIGAL-ALEXANDER PA, KYLE K Ot 429.3 12/22/2014 MADRIGAL-ALEXANDER PA, KYLE K Ot 786.50 12/22/2014 MADRIGAL-ALEXANDER PA, KYLE K Ot 272.4 12/22/2014 MADRIGAL-ALEXANDER PA, KYLE K Ot 401.9 12/22/2014 MADRIGAL-ALEXANDER PA, KYLE K Ot 414.00 12/22/2014 MADRIGAL-ALEXANDER PA, KYLE K Ot 786.50 12/22/2014 [place], BERTHA Daniels Ot 427.31 01/14/2015 LUCIANO SALOMON WEBLOGIC ADMINISTRATOR Ot 244.9 01/14/2015 LUCIANO SALOMON WEBLOGIC ADMINISTRATOR Ot 787.20 03/10/2015 LUCIANO SALOMON WEBLOGIC ADMINISTRATOR Ot V76.12 05/06/2015 KALIA DO, JAMES K Ot F03.90 UNSPECIFIED DEMENTIA WITHOUT BEHAVIORAL 05/06/2015 KALIA DO, JAMES K Ot R11.0 NAUSEA 05/06/2015 KALIA DO, JAMES K Ot R51 HEADACHE 05/06/2015 KALIA DO, JAMES K Ot R53.1 WEAKNESS 05/06/2015 KALIA DO, JAMES K Ot Z95.0 PRESENCE OF CARDIAC PACEMAKER 06/09/2015 [place], CARTER Saldivar Ot M25.511 06/09/2015 [place], CARTER Saldivar Ot M54.2 06/30/2015 KYLE YANG Ot E78.2 06/30/2015 JACQUES QUINTANILLA, KYLE Hurst Ot I10 06/30/2015 JACQUES QUINTANILLA, KYLE K Ot I25.10 06/30/2015 JACQUES QUINTANILLA, KYLE Hurst Ot I65.23 06/30/2015 [place], CURT [place]ca Ot E78.2 06/30/2015 [place], CURT Montes [place]ca Ot I10 06/30/2015 CURT ARAGON MD Ot I25.10 07/15/2015 MINO GARCIA MD Ot K21.0 GASTRO-ESOPHAGEAL REFLUX DISEASE WITH ES 07/15/2015 MINO GARCIA MD Ot K44.9 DIAPHRAGMATIC HERNIA WITHOUT OBSTRUCTION 07/27/2015 LUCIANO SALOMON WEBLOGIC ADMINISTRATOR Ot E04.1 10/05/2015 BERTHA DHALIWAL MD Ot Z51.81 ENCOUNTER FOR THERAPEUTIC DRUG LEVEL MON 10/05/2015 BERTHA DHALIWAL MD Ot Z79.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 CARPENTER HELPER (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 THERAPY 10/08/2015 BERTHA DHALIWAL MD Ot Z51.81 ENCOUNTER FOR THERAPEUTIC DRUG LEVEL MON 10/08/2015 BERTHA DHALIWAL MD Ot Z79.899 OTHER SENIOR LIVING (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 THERAPY 10/22/2015 BERTHA DHALIWAL MD Ot Z51.81 ENCOUNTER FOR THERAPEUTIC DRUG LEVEL MON 10/22/2015 [place], BERTHA Daniels Ot Z79.899 OTHER SENIOR LIVING (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 THERAPY 11/08/2015 [place] NATION, FRANCISCO Hurst Ot J06.9 ACUTE UPPER RESPIRATORY INFECTION, UNSPE 01/06/2016 [place]Y NATION, CARTER Saldivar Ot G47.33 OBSTRUCTIVE SLEEP APNEA (ADULT) (PEDIATR 01/07/2016 [place], CARTER Saldivar Ot G47.33 OBSTRUCTIVE SLEEP APNEA (ADULT) (PEDIATR 01/07/2016 [place], CARTER Saldivar Ot G47.36 SLEEP RELATED HYPOVENTILATION IN CONDITI 01/07/2016 [place], CARTER Saldivar Ot R06.83 SNORING 01/20/2016 [place], CARTER Saldivar Ot G47.36 SLEEP RELATED HYPOVENTILATION IN CONDITI 01/20/2016 [place], CARTER Saldivar Ot R06.83 SNORING 01/22/2016 ABY NTAION, CARTER Saldivar Ot G47.36 SLEEP RELATED HYPOVENTILATION IN CONDITI 01/22/2016 [place], CARTER Saldivar Ot R06.83 SNORING 02/26/2016 NOEL ZARAGOZA WASTE DUSTER Ot M54.9 DORSALGIA, UNSPECIFIED 02/26/2016 NOEL ZARAGOZA WASTE DUSTER Ot R07.9 CHEST PAIN, UNSPECIFIED 02/26/2016 NOEL ZARAGOZA WASTE DUSTER Ot R61 GENERALIZED HYPERHIDROSIS 02/26/2016 NOEL ZARAGOZA WASTE DUSTER Ot M54.9 DORSALGIA, UNSPECIFIED 02/26/2016 NOEL ZARAGOZA WASTE DUSTER Ot R07.9 CHEST PAIN, UNSPECIFIED 02/26/2016 NOEL ZARAGOZA WASTE DUSTER Ot R61 GENERALIZED HYPERHIDROSIS 03/07/2016 Ot 611.71 MASTODYNIA 03/07/2016 Ot 753.10 CYSTIC KIDNEY DISEASE, UNSPECIFIED 03/07/2016 Ot 790.4 ELEV TRANSAMINASE/LDH 03/07/2016 Ot 780.4 DIZZINESS AND GIDDINESS 03/07/2016 Ot 786.09 RESPIRATORY ABNORM NEC 03/07/2016 Ot 786.50 CHEST PAIN NOS 03/07/2016 Ot V72.84 EXAM PRE- OPERATIVE NOS 03/07/2016 Ot V76.12 OTH SCREEN MAMMO-MALIGN NEOPLASM OF [place] 03/07/2016 Ot 793.80 UNSPEC ABNORMAL MAMMOGRAM 03/07/2016 Ot V72.84 EXAM PRE- OPERATIVE NOS 03/07/2016 [place], ARUNA Vale Ot 611.71 MASTODYNIA 03/07/2016 [place], CURT Montes [place] Oca Ot 401.9 HYPERTENSION NOS 03/07/2016 [place], CURT Mont[place] Oca Ot 414.00 CORON ATHEROSCLER NOS TYPE VESSEL, NATIV 03/07/2016 [place], CURT Montes [place] Oca Ot 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 OCCLUSION NOS W CEREBRAL IN 03/07/2016 [place] NATION, PJ I Ot 553.3 DIAPHRAGMATIC HERNIA 03/07/2016 [place] NATION, PJ I Ot 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, ACQUIRED 03/07/2016 [place] NATION, PJ I Ot 789.00 ABDOMINAL PAIN, UNSPECIFIED SITE 03/07/2016 [place] N[place], ARUNA Vale Ot V76.12 OTH SCREEN MAMMO-MALIGN NEOPLASM OF [place] 03/07/2016 KYLE YANG Ot 272.4 HYPERLIPIDEMIA NEC/NOS 03/07/2016 KYLE YANG Ot 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 03/07/2016 KYLE YANG Ot 397.0 TRICUSPID VALVE DISEASE 03/07/2016 KYLE YANG Ot 401.9 HYPERTENSION NOS 03/07/2016 KYLE YANG Ot 414.00 CORON ATHEROSCLER NOS TYPE VESSEL, NATIV 03/07/2016 KYLE YANG Ot 429.3 CARDIOMEGALY 03/07/2016 KYLE YANG Ot 786.50 CHEST PAIN NOS 03/07/2016 KYLE YANG Ot 272.4 HYPERLIPIDEMIA NEC/NOS 03/07/2016 KYLE YANG Ot 401.9 HYPERTENSION NOS 03/07/2016 KYLE YANG Ot 414.00 CORON ATHEROSCLER NOS TYPE VESSEL, NATIV 03/07/2016 KYLE YANG Ot 786.50 CHEST PAIN NOS 03/07/2016 [place], BERTHA P Ot 427.31 ATRIAL FIBRILLATION 03/07/2016 LUCIANO SALOMON WEBLOGIC ADMINISTRATOR Ot 244.9 HYPOTHYROIDISM NOS 03/07/2016 LUCIANO SALOMON WEBLOGIC ADMINISTRATOR Ot 787.20 DYSPHAGIA, UNSPECIFIED 03/07/2016 LUCIANO SALOMON WEBLOGIC ADMINISTRATOR Ot V76.12 OTH SCREEN MAMMO-MALIGN NEOPLASM OF [place] 03/07/2016 KYLE YANG Ot E78.2 MIXED HYPERLIPIDEMIA 03/07/2016 KYLE YANG Ot I10 ESSENTIAL (PRIMARY) HYPERTENSION 03/07/2016 KYLE YANG Ot I25.10 ATHSCL HEART DISEASE OF [place] CORONARY 03/07/2016 KYLE YANG Ot I65.23 OCCLUSION AND STENOSIS OF BIL[place]AL [place] 03/07/2016 CURT ARAGON MD Ot E78.2 MIXED HYPERLIPIDEMIA 03/07/2016 CURT ARAGON MD Ot I10 ESSENTIAL (PRIMARY) HYPERTENSION 03/07/2016 CURT ARAGON MD Ot I25.10 ATHSCL HEART DISEASE OF [place] CORONARY 03/07/2016 [place], CARTER Saldivar Ot M25.511 PAIN IN RIGHT SHOULDER 03/07/2016 CARTER BADILLO MD Ot M54.2 CERVICALGIA 03/07/2016 LUCIANO SALOMON WEBLOGIC ADMINISTRATOR Ot E04.1 NONTOXIC SINGLE THYROID NODULE 03/07/2016 [place] NATION, MINO Ot R13.10 DYSPHAGIA, UNSPECIFIED 03/07/2016 [place], MINO Ot Z01.818 ENCOUNTER FOR OTHER PREPROCEDURAL EXAMIN 03/07/2016 [place], BERTHA Daniels Ot Z51.81 ENCOUNTER FOR THERAPEUTIC DRUG LEVEL MON 03/07/2016 [place], BERTHA Daniels Ot Z79.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 CARPENTER HELPER (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 THERAPY 03/07/2016 NOEL ZARAGOZA APRN Ot M54.9 DORSALGIA, UNSPECIFIED 03/07/2016 NOEL ZARAGOZA APRN Ot R07.9 CHEST PAIN, UNSPECIFIED 03/07/2016 NOEL ZARAGOZA APRN Ot R61 GENERALIZED HYPERHIDROSIS 03/07/2016 NOEL ZARAGOZA APRN Ot Z12.31 ENCNTR SCREEN MAMMOGRAM FOR MALIGNANT NE 03/08/2016 NOEL ZARAGOZA APRN Ot Z12.31 ENCNTR SCREEN MAMMOGRAM FOR MALIGNANT NE 03/08/2016 NOEL ZARAGOZA APRN Ot Z12.31 ENCNTR SCREEN MAMMOGRAM FOR MALIGNANT NE 03/08/2016 NOEL ZARAGOZA WASTE DUSTER Ot Z12.31 ENCNTR SCREEN MAMMOGRAM FOR MALIGNANT NE 03/17/2016 NOEL ZARAGOZA WASTE DUSTER Ot M54.9 DORSALGIA, UNSPECIFIED 03/17/2016 NOEL ZARAGOZA WASTE DUSTER Ot R07.9 CHEST PAIN, UNSPECIFIED 03/17/2016 NOEL ZARAGOZA WASTE DUSTER Ot R61 GENERALIZED HYPERHIDROSIS 03/17/2016 NOEL ZARAGOZA WASTE DUSTER Ot Z12.31 ENCNTR SCREEN MAMMOGRAM FOR MALIGNANT NE 06/30/2016 Ot 780.4 DIZZINESS AND GIDDINESS 06/30/2016 Ot 786.09 RESPIRATORY ABNORM NEC 06/30/2016 Ot 786.50 CHEST PAIN NOS 06/30/2016 Ot V72.84 EXAM PRE- OPERATIVE NOS 06/30/2016 Ot V76.12 OTH SCREEN MAMMO-MALIGN NEOPLASM OF [place] 06/30/2016 Ot 793.80 UNSPEC ABNORMAL MAMMOGRAM 06/30/2016 Ot V72.84 EXAM PRE- OPERATIVE NOS 06/30/2016 [place], ARUNA Vale Ot 611.71 MASTODYNIA 06/30/2016 [place], CURT Montes [place] Oca Ot 401.9 HYPERTENSION NOS 06/30/2016 [place], CURT Mont[place] Oca Ot 414.00 CORON ATHEROSCLER NOS TYPE VESSEL, NATIV 06/30/2016 [place], CURT Montes [place] Oca Ot 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 OCCLUSION NOS W CEREBRAL IN 06/30/2016 [place] NATION, PJ Wells Ot 553.3 DIAPHRAGMATIC HERNIA 06/30/2016 [place] NATION, PJ I Ot 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, ACQUIRED 06/30/2016 [place] NATION, PJ I Ot 789.00 ABDOMINAL PAIN, UNSPECIFIED SITE 06/30/2016 ARUNA EGAN MD Ot V76.12 OTH SCREEN MAMMO-MALIGN NEOPLASM OF [place] 06/30/2016 KLYE YANG Ot 272.4 HYPERLIPIDEMIA NEC/NOS 06/30/2016 KYLE YANG Ot 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 06/30/2016 KYLE YANG Ot 397.0 TRICUSPID VALVE DISEASE 06/30/2016 KYLE YANG Ot 401.9 HYPERTENSION NOS 06/30/2016 AURA YANGTUCKER Hurst Ot 414.00 CORON ATHEROSCLER NOS TYPE VESSEL, NATIV 06/30/2016 JACQUES QUINTANILLA KYLE Natali Ot 429.3 CARDIOMEGALY 06/30/2016 JACQUES QUINTANILLA KYLE Natali Ot 786.50 CHEST PAIN NOS 06/30/2016 JACQUES QUINTANILLA KYLE Natali Ot 272.4 HYPERLIPIDEMIA NEC/NOS 06/30/2016 JACQUES QUINTANILLA KYLE Natali Ot 401.9 HYPERTENSION NOS 06/30/2016 JACQUES QUINTANILLA KYLE Hurst Ot 414.00 CORON ATHEROSCLER NOS TYPE VESSEL, NATIV 06/30/2016 JACQUES QUINTANILLA KYLE Hurst Ot 786.50 CHEST PAIN NOS 06/30/2016 [place], BERTHA Daniels Ot 427.31 ATRIAL FIBRILLATION 06/30/2016 LUCIANO SALOMON WEBLOGIC ADMINISTRATOR Ot 244.9 HYPOTHYROIDISM NOS 06/30/2016 LUCIANO SALOMON WEBLOGIC ADMINISTRATOR Ot 787.20 DYSPHAGIA, UNSPECIFIED 06/30/2016 LUCIANO SALOMON WEBLOGIC ADMINISTRATOR Ot V76.12 OTH SCREEN MAMMO-MALIGN NEOPLASM OF [place]ERR[place] 06/30/2016 JACQUES QUINTANILLA KYLE Natali Ot E78.2 MIXED HYPERLIPIDEMIA 06/30/2016 JACQUES QUINTANILLA KYLE K Ot I10 ESSENTIAL (PRIMARY) HYPERTENSION 06/30/2016 JACQUES QUINTANILLA KYLE Natali Ot I25.10 ATHSCL HEART DISEASE OF [place] CORONARY 06/30/2016 JACQUES QUINTANILLA KYLE Natali Ot I65.23 OCCLUSION AND STENOSIS OF BILATERAL [place] 06/30/2016 CURT ARAGON MD Ot E78.2 MIXED HYPERLIPIDEMIA 06/30/2016 CURT ARAGON MD Ot I10 ESSENTIAL (PRIMARY) HYPERTENSION 06/30/2016 CURT ARAGON MD Ot I25.10 ATHSCL HEART DISEASE OF [place] CORONARY 06/30/2016 [place], CARTER Saldivar Ot M25.511 PAIN IN RIGHT SHOULDER 06/30/2016 [place], CARTER Saldivar Ot M54.2 CERVICALGIA 06/30/2016 LUCIANO SALOMON WEBLOGIC ADMINISTRATOR Ot E04.1 NONTOXIC SINGLE THYROID NODULE 06/30/2016 [place] N[place], MINO Ot R13.10 DYSPHAGIA, UNSPECIFIED 06/30/2016 MINO GARCIA MD Ot Z01.818 ENCOUNTER FOR OTHER PREPROCEDURAL EXAMIN 06/30/2016 BERTHA DHALIWAL MD Ot Z51.81 ENCOUNTER FOR THERAPEUTIC DRUG LEVEL MON 06/30/2016 BERTHA DHALIWAL MD Ot Z79.899 OTHER SENIOR LIVING (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 THERAPY 06/30/2016 NOEL ZARAGOZA WASTE DUSTER Ot M54.9 DORSALGIA, UNSPECIFIED 06/30/2016 NOEL ZARAGOZA WASTE DUSTER Ot R07.9 CHEST PAIN, UNSPECIFIED 06/30/2016 NOEL ZARAGOZA WASTE DUSTER Ot R61 GENERALIZED HYPERHIDROSIS 06/30/2016 NIKNOEL WASTE DUSTER Ot Z12.31 ENCNTR SCREEN MAMMOGRAM FOR MALIGNANT NE 06/30/2016 Ot 780.4 DIZZINESS AND GIDDINESS 06/30/2016 Ot 786.09 RESPIRATORY ABNORM NEC 06/30/2016 Ot 786.50 CHEST PAIN NOS 06/30/2016 Ot V72.84 EXAM PRE- OPERATIVE NOS 06/30/2016 Ot V76.12 OTH SCREEN MAMMO-MALIGN NEOPLASM OF [place]ERR[place] 06/30/2016 Ot 793.80 UNSPEC ABNORMAL MAMMOGRAM 06/30/2016 Ot V72.84 EXAM PRE- OPERATIVE NOS 06/30/2016 [place], ARUNA Vale Ot 611.71 MASTODYNIA 06/30/2016 [place], CURT Montes [place] Oca Ot 401.9 HYPERTENSION NOS 06/30/2016 CURT ARAGON MD Ot 414.00 CORON ATHEROSCLER NOS TYPE VESSEL, NATIV 06/30/2016 CURT ARAGON MD Ot 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 OCCLUSION NOS W CEREBRAL IN 06/30/2016 PJ ALMANZAR MD, I Ot 553.3 DIAPHRAGMATIC HERNIA 06/30/2016 PJ ALMANZAR MD, I Ot 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, ACQUIRED 06/30/2016 PJ ALMANZAR MD, I Ot 789.00 ABDOMINAL PAIN, UNSPECIFIED SITE 06/30/2016 ARUNA EGAN MD Ot V76.12 OTH SCREEN MAMMO-MALIGN NEOPLASM OF PERR[place] 06/30/2016 KYLE YANG Ot 272.4 HYPERLIPIDEMIA NEC/NOS 06/30/2016 KYLE YANG Ot 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 06/30/2016 KYLE YANG Ot 397.0 TRICUSPID VALVE DISEASE 06/30/2016 JACQUES QUINTANILLA KYLE Hurst Ot 401.9 HYPERTENSION NOS 06/30/2016 JACQUES QUINTANILLA KYLE [place]st Ot 414.00 CORON ATHEROSCLER NOS TYPE VESSEL, NATIV 06/30/2016 JACQUES QUINTANILLA KYLE Natali Ot 429.3 CARDIOMEGALY 06/30/2016 JACQUES QUINTANILLA KYLE Natali Ot 786.50 CHEST PAIN NOS 06/30/2016 JACQUES QUINTANILLA KYLE Natali Ot 272.4 HYPERLIPIDEMIA NEC/NOS 06/30/2016 JACQUES QUINTANILLA KYLE Natali Ot 401.9 HYPERTENSION NOS 06/30/2016 JACQUES QUINTANILLA KYLE Hurst Ot 414.00 CORON ATHEROSCLER NOS TYPE VESSEL, NATIV 06/30/2016 JACQUES QUINTANILLA KYLE [place]st Ot 786.50 CHEST PAIN NOS 06/30/2016 [place], BERTHA P Ot 427.31 ATRIAL FIBRILLATION 06/30/2016 LUCIANO SALOMON WEBLOGIC ADMINISTRATOR Ot 244.9 HYPOTHYROIDISM NOS 06/30/2016 LUCIANO SALOMON WEBLOGIC ADMINISTRATOR Ot 787.20 DYSPHAGIA, UNSPECIFIED 06/30/2016 LUCIANO SALOMON WEBLOGIC ADMINISTRATOR Ot V76.12 OTH SCREEN MAMMO-MALIGN NEOPLASM OF [place] 06/30/2016 JACQUES QUINTANILLA KYLE K Ot E78.2 MIXED HYPERLIPIDEMIA 06/30/2016 JACQUES QUINTANILLA KYLE K Ot I10 ESSENTIAL (PRIMARY) HYPERTENSION 06/30/2016 JACQUES QUINTANILLA KYLE K Ot I25.10 ATHSCL HEART DISEASE OF [place] CORONARY 06/30/2016 JACQUES QUINTANILLA KYLE Natali Ot I65.23 OCCLUSION AND STENOSIS OF BILATERAL [place] 06/30/2016 [place], CURT Montes De [place]ca Ot E78.2 MIXED HYPERLIPIDEMIA 06/30/2016 CURT ARAGON MD Ot I10 ESSENTIAL (PRIMARY) HYPERTENSION 06/30/2016 CURT ARAGON MD Ot I25.10 ATHSCL HEART DISEASE OF [place] CORONARY 06/30/2016 [place], CARTER Saldivar Ot M25.511 PAIN IN RIGHT SHOULDER 06/30/2016 [place], CARTER Saldivar Ot M54.2 CERVICALGIA 06/30/2016 SALOMON, LUCIANO M WEBLOGIC ADMINISTRATOR Ot E04.1 NONTOXIC SINGLE THYROID NODULE 06/30/2016 [place] NATION, MINO Ot R13.10 DYSPHAGIA, UNSPECIFIED 06/30/2016 [place] N[place], MINO Ot Z01.818 ENCOUNTER FOR OTHER PREPROCEDURAL EXAMIN 06/30/2016 BERTHA DHALIWAL MD Ot Z51.81 ENCOUNTER FOR THERAPEUTIC DRUG LEVEL MON 06/30/2016 BERTHA DHALIWAL MD Ot Z79.899 OTHER SENIOR LIVING (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 THERAPY 06/30/2016 NOEL ZARAGOZA WASTE DUSTER Ot M54.9 DORSALGIA, UNSPECIFIED 06/30/2016 NOEL ZARAGOZA WASTE DUSTER Ot R07.9 CHEST PAIN, UNSPECIFIED 06/30/2016 NOEL ZARAGOZA WASTE DUSTER Ot R61 GENERALIZED HYPERHIDROSIS 06/30/2016 NOEL ZARAGOZA WASTE DUSTER Ot Z12.31 ENCNTR SCREEN MAMMOGRAM FOR MALIGNANT NE 07/01/2016 BLARAKESHHO DPM, SNOW Frias Ot 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 07/01/2016 BLANCHO DPM, SNOW Frias Ot 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 07/05/2016 BLANCHO DPM, SNOW Frias Ot 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 07/06/2016 KYLE YANG Ot 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, 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 07/07/2016 KYLE YANG Ot 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, 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 07/11/2016 KYLE YANG Ot 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, 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 07/28/2016 BLANCHO DPM, SNOW Frias Ot 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 08/09/2016 CARTER BADILLO MD Ot E04.2 NONTOXIC MULTINODULAR GOITER 08/09/2016 CARTER BADILLO MD Ot I25.10 ATHSCL HEART DISEASE OF [place] CORONARY 08/09/2016 CARTER BADILLO MD Ot I51.7 CARDIOMEGALY 08/09/2016 CARTER BADILLO MD Ot 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, 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 08/09/2016 CARTER BADILLO MD Ot K44.9 DIAPHRAGMATIC HERNIA WITHOUT OBSTRUCTION 08/20/2016 BERTHA PA, TAD L Ot I10 ESSENTIAL (PRIMARY) HYPERTENSION 08/20/2016 TAD BOSS Ot L76.31 POSTPROC HEMATOMA OF SKIN, SUBCU FOL A D 08/20/2016 TAD BOSS Ot T81.4XXA INFECTION FOLLOWING A PROCEDURE, INITIAL 08/20/2016 TAD BOSS Ot Z79.899 OTHER SENIOR LIVING (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 THERAPY 08/20/2016 TAD BOSS Ot Z95.0 PRESENCE OF CARDIAC PACEMAKER 08/21/2016 TAD BOSS Ot T81.4XXA INFECTION FOLLOWING A PROCEDURE, INITIAL 08/22/2016 TAD BOSS Ot I10 ESSENTIAL (PRIMARY) HYPERTENSION 08/22/2016 TAD BOSS Ot L76.31 POSTPROC HEMATOMA OF SKIN, SUBCU FOL A D 08/22/2016 TAD BOSS Ot T81.4XXA INFECTION FOLLOWING A PROCEDURE, INITIAL 08/22/2016 TAD BOSS Ot Z79.899 OTHER SENIOR LIVING (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 THERAPY 08/22/2016 TAD BOSS Ot Z95.0 PRESENCE OF CARDIAC PACEMAKER 08/23/2016 TAD BOSS Ot T81.4XXA INFECTION FOLLOWING A PROCEDURE, INITIAL 08/28/2016 TAD BOSS Ot T81.4XXA INFECTION FOLLOWING A PROCEDURE, INITIAL 09/16/2016 Ot 780.4 DIZZINESS AND GIDDINESS 09/16/2016 Ot 786.09 RESPIRATORY ABNORM NEC 09/16/2016 Ot 786.50 CHEST PAIN NOS 09/16/2016 Ot V72.84 EXAM PRE- OPERATIVE NOS 09/16/2016 Ot V76.12 OTH SCREEN MAMMO-MALIGN NEOPLASM OF [place]ERR[place] 09/16/2016 Ot 793.80 UNSPEC ABNORMAL MAMMOGRAM 09/16/2016 Ot V72.84 EXAM PRE- OPERATIVE NOS 09/16/2016 [place], ARUNA Vale Ot 611.71 MASTODYNIA 09/16/2016 CURT ARAGON MD Ot 401.9 HYPERTENSION NOS 09/16/2016 CURT ARAGON MD Ot 414.00 CORON ATHEROSCLER NOS TYPE VESSEL, NATIV 09/16/2016 CURT ARAGON MD Ot 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 OCCLUSION NOS W CEREBRAL IN 09/16/2016 [place] NATION, PJ I Ot 553.3 DIAPHRAGMATIC HERNIA 09/16/2016 [place], PJ I Ot 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, ACQUIRED 09/16/2016 [place], PJ I Ot 789.00 ABDOMINAL PAIN, UNSPECIFIED SITE 09/16/2016 [place], ARUNA Vale Ot V76.12 OTH SCREEN MAMMO-MALIGN NEOPLASM OF PERRY 09/16/2016 KYLE YANG Ot 272.4 HYPERLIPIDEMIA NEC/NOS 09/16/2016 KYLE YANG K Ot 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 09/16/2016 AURA YANGTH K Ot 397.0 TRICUSPID VALVE DISEASE 09/16/2016 KYLE YANG K Ot 401.9 HYPERTENSION NOS 09/16/2016 KYLE YANG K Ot 414.00 CORON ATHEROSCLER NOS TYPE VESSEL, NATIV 09/16/2016 KYLE YANG Ot 429.3 CARDIOMEGALY 09/16/2016 AURA YANGTH K Ot 786.50 CHEST PAIN NOS 09/16/2016 KYEL YANG K Ot 272.4 HYPERLIPIDEMIA NEC/NOS 09/16/2016 KYLE YANG K Ot 401.9 HYPERTENSION NOS 09/16/2016 AURA YANGTH K Ot 414.00 CORON ATHEROSCLER NOS TYPE VESSEL, NATIV 09/16/2016 KYLE YANG K Ot 786.50 CHEST PAIN NOS 09/16/2016 [place], BERTHA Daniels Ot 427.31 ATRIAL FIBRILLATION 09/16/2016 LUCIANO SALOMON WEBLOGIC ADMINISTRATOR Ot 244.9 HYPOTHYROIDISM NOS 09/16/2016 LUCIANO SALOMON WEBLOGIC ADMINISTRATOR Ot 787.20 DYSPHAGIA, UNSPECIFIED 09/16/2016 LUCIANO SALOMON WEBLOGIC ADMINISTRATOR Ot V76.12 OTH SCREEN MAMMO-MALIGN NEOPLASM OF PERR[place] 09/16/2016 KYLE YANG K Ot E78.2 MIXED HYPERLIPIDEMIA 09/16/2016 AURA YANGTH K Ot I10 ESSENTIAL (PRIMARY) HYPERTENSION 09/16/2016 KYLE YANG K Ot I25.10 ATHSCL HEART DISEASE OF [place] CORONARY 09/16/2016 KYLE YANG Ot I65.23 OCCLUSION AND STENOSIS OF BILATERAL [place] 09/16/2016 CURT ARAGON MD Ot E78.2 MIXED HYPERLIPIDEMIA 09/16/2016 CURT ARAGON MD Ot I10 ESSENTIAL (PRIMARY) HYPERTENSION 09/16/2016 CURT ARAGON MD Ot I25.10 ATHSCL HEART DISEASE OF [place] CORONARY 09/16/2016 CARTER BADILLO MD Ot M25.511 PAIN IN RIGHT SHOULDER 09/16/2016 CARTER BADILLO MD Ot M54.2 CERVICALGIA 09/16/2016 LUCIANO SALOMON Ot E04.1 NONTOXIC SINGLE THYROID NODULE 09/16/2016 [place], MINO Ot R13.10 DYSPHAGIA, UNSPECIFIED 09/16/2016 MINO GARCIA MD Ot Z01.818 ENCOUNTER FOR OTHER PREPROCEDURAL EXAMIN 09/16/2016 BERTHA DHALIWAL MD Ot Z51.81 ENCOUNTER FOR THERAPEUTIC DRUG LEVEL MON 09/16/2016 BERTHA DHALIWAL MD Ot Z79.899 OTHER SENIOR LIVING (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 THERAPY 09/16/2016 NOEL ZARAGOZA WASTE DUSTER Ot M54.9 DORSALGIA, UNSPECIFIED 09/16/2016 NOEL ZARAGOZA WASTE DUSTER Ot R07.9 CHEST PAIN, UNSPECIFIED 09/16/2016 NOEL ZARAGOZA WASTE DUSTER Ot R61 GENERALIZED HYPERHIDROSIS 09/16/2016 NOEL ZARAGOZA WASTE DUSTER Ot Z12.31 ENCNTR SCREEN MAMMOGRAM FOR MALIGNANT NE 09/16/2016 STAN TUCKERM, SNOW Frias Ot 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 09/16/2016 KYLE YANG Ot 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, 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 09/16/2016 CARTER BADILLO MD Ot E04.2 NONTOXIC MULTINODULAR GOITER 09/16/2016 CARTER BADILLO MD Ot I25.10 ATHSCL HEART DISEASE OF [place] CORONARY 09/16/2016 CARTER BADILLO MD Ot I51.7 CARDIOMEGALY 09/16/2016 CARTER BADILLO MD Ot 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, 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 09/16/2016 CARTER BADILLO MD Ot K44.9 DIAPHRAGMATIC HERNIA WITHOUT OBSTRUCTION 09/19/2016 BERTHA DHALIWAL MD Ot J44.9 CHRONIC OBSTRUCTIVE PULMONARY DISEASE, U 09/19/2016 BERTHA DHALIWAL MD, Ot K44.9 DIAPHRAGMATIC HERNIA WITHOUT OBSTRUCTION 09/19/2016 BERTHA DHALIWAL MD Ot Z51.81 ENCOUNTER FOR THERAPEUTIC DRUG LEVEL MON 09/19/2016 BERTHA DHALIWAL MD Ot Z79.899 OTHER SENIOR LIVING (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 THERAPY 10/10/2016 BERTHA DHALIWAL MD, Ot J44.9 CHRONIC OBSTRUCTIVE PULMONARY DISEASE, U 10/10/2016 BERTHA DHALIWAL MD, Ot K44.9 DIAPHRAGMATIC HERNIA WITHOUT OBSTRUCTION 10/10/2016 BERTHA DHALIWAL MD Ot Z51.81 ENCOUNTER FOR THERAPEUTIC DRUG LEVEL MON 10/10/2016 BERTHA DHALIWAL MD Ot Z79.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 CARPENTER HELPER (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 THERAPY 10/28/2016 ANJELICA HUBBARD MD, Ot L92.8 OTH GRANULOMATOUS DISORDERS OF THE SKIN, 10/28/2016 ANJELICA HUBBARD MD Ot 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 10/28/2016 ANJELICA HUBBARD MD Ot T81.31XA DISRUPTION OF EXTERNAL OPERATION (SURGIC 12/06/2016 ANJELICA HUBBARD MD, Ot L92.8 OTH GRANULOMATOUS DISORDERS OF THE SKIN, 12/06/2016 ANJELICA HUBBARD MD Ot 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 12/06/2016 ANJELICA HUBBARD MD Ot T81.31XA DISRUPTION OF EXTERNAL OPERATION (SURGIC 12/08/2016 ANJELICA HUBBARD MD, Ot L92.8 OTH GRANULOMATOUS DISORDERS OF THE SKIN, 12/08/2016 ANJELICA HUBBARD MD Ot 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 12/08/2016 ANJELICA HUBBARD MD Ot T81.31XA DISRUPTION OF EXTERNAL OPERATION (SURGIC 12/23/2016 Ot 780.4 DIZZINESS AND GIDDINESS 12/23/2016 Ot 786.09 RESPIRATORY ABNORM NEC 12/23/2016 Ot 786.50 CHEST PAIN NOS 12/23/2016 Ot V72.84 EXAM PRE- OPERATIVE NOS 12/23/2016 Ot V76.12 OTH SCREEN MAMMO-MALIGN NEOPLASM OF PERRY 12/23/2016 Ot 793.80 UNSPEC ABNORMAL MAMMOGRAM 12/23/2016 Ot V72.84 EXAM PRE- OPERATIVE NOS 12/23/2016 [place] NATION, ARUNA Vale Ot 611.71 MASTODYNIA 12/23/2016 [place], CURT Montes [place]ca Ot 401.9 HYPERTENSION NOS 12/23/2016 [place], CURT [place] Ot 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 CORON ATHEROSCLER NOS TYPE VESSEL, NATIV 12/23/2016 [place], CURT [place] Ot 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 OCCLUSION NOS W CEREBRAL IN 12/23/2016 [place] N[place], PJ I Ot 553.3 DIAPHRAGMATIC HERNIA 12/23/2016 [place], PJ I Ot 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, ACQUIRED 12/23/2016 [place], PJ I Ot 789.00 ABDOMINAL PAIN, UNSPECIFIED SITE 12/23/2016 [place], ARUNA Vale Ot V76.12 OTH SCREEN MAMMO-MALIGN NEOPLASM OF [place]ERR[place] 12/23/2016 KYLE YANG Ot 272.4 HYPERLIPIDEMIA NEC/NOS 12/23/2016 KYLE YANG Ot 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 12/23/2016 KYLE YANG Ot 397.0 TRICUSPID VALVE DISEASE 12/23/2016 KYLE YANG Ot 401.9 HYPERTENSION NOS 12/23/2016 KYLE YANG Ot 414.00 CORON ATHEROSCLER NOS TYPE VESSEL, NATIV 12/23/2016 KYLE YANG Ot 429.3 CARDIOMEGALY 12/23/2016 KYLE YANG Ot 786.50 CHEST PAIN NOS 12/23/2016 KYLE YANG Ot 272.4 HYPERLIPIDEMIA NEC/NOS 12/23/2016 KYLE YANG Ot 401.9 HYPERTENSION NOS 12/23/2016 KYLE YANG Ot 414.00 CORON ATHEROSCLER NOS TYPE VESSEL, NATIV 12/23/2016 KYLE YANG Ot 786.50 CHEST PAIN NOS 12/23/2016 [place], BERTHA Daniels Ot 427.31 ATRIAL FIBRILLATION 12/23/2016 LUCIANO SALOMON WEBLOGIC ADMINISTRATOR Ot 244.9 HYPOTHYROIDISM NOS 12/23/2016 LUCIANO SALOMON WEBLOGIC ADMINISTRATOR Ot 787.20 DYSPHAGIA, UNSPECIFIED 12/23/2016 LUCIANO SALOMON WEBLOGIC ADMINISTRATOR Ot V76.12 OTH SCREEN MAMMO-MALIGN NEOPLASM OF PERR[place] 12/23/2016 KYLE YANG Ot E78.2 MIXED HYPERLIPIDEMIA 12/23/2016 KYLE YANG Ot I10 ESSENTIAL (PRIMARY) HYPERTENSION 12/23/2016 KYLE YANG Ot I25.10 ATHSCL HEART DISEASE OF [place] CORONARY 12/23/2016 KYLE YANG Ot I65.23 OCCLUSION AND STENOSIS OF BILATERAL [place] 12/23/2016 CURT ARAGON MD Ot E78.2 MIXED HYPERLIPIDEMIA 12/23/2016 CURT ARAGON MD, Ot I10 ESSENTIAL (PRIMARY) HYPERTENSION 12/23/2016 CURT ARAGON MD Ot I25.10 ATHSCL HEART DISEASE OF [place] CORONARY 12/23/2016 CARTER BADILLO MD Ot M25.511 PAIN IN RIGHT SHOULDER 12/23/2016 CARTER BAIDLLO MD Ot M54.2 CERVICALGIA 12/23/2016 LUCIANO SALOMON WEBLOGIC ADMINISTRATOR Ot E04.1 NONTOXIC SINGLE THYROID NODULE 12/23/2016 MINO GARCIA MD Ot R13.10 DYSPHAGIA, UNSPECIFIED 12/23/2016 MINO GARCIA MD Ot Z01.818 ENCOUNTER FOR OTHER PREPROCEDURAL EXAMIN 12/23/2016 [place], BERTHA Daniels Ot Z51.81 ENCOUNTER FOR THERAPEUTIC DRUG LEVEL MON 12/23/2016 [place], BERTHA Daniels Ot Z79.899 OTHER SENIOR LIVING (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 THERAPY 12/23/2016 NOEL ZARAGOZA APRN Ot M54.9 DORSALGIA, UNSPECIFIED 12/23/2016 NOEL ZARAGOZA APRN Ot R07.9 CHEST PAIN, UNSPECIFIED 12/23/2016 NOEL ZARAGOZA APRN Ot R61 GENERALIZED HYPERHIDROSIS 12/23/2016 NOEL ZARAGOZA APRN Ot Z12.31 ENCNTR SCREEN MAMMOGRAM FOR MALIGNANT NE 12/23/2016 STAN LEAVITT, SNOW Frias Ot 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 12/23/2016 KYLE YANG Ot 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, 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 12/23/2016 [place], CARTER Saldivar Ot E04.2 NONTOXIC MULTINODULAR GOITER 12/23/2016 [place], CARTER Saldivar Ot I25.10 ATHSCL HEART DISEASE OF [place] CORONARY 12/23/2016 [place], CARTER Saldivar Ot I51.7 CARDIOMEGALY 12/23/2016 [place], CARTER Saldivar Ot 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, 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 12/23/2016 [place], CARTER Saldivar Ot K44.9 DIAPHRAGMATIC HERNIA WITHOUT OBSTRUCTION 12/23/2016 [place], BERTHA Daniels Ot J44.9 CHRONIC OBSTRUCTIVE PULMONARY DISEASE, U 12/23/2016 [place], BERTHA Daniels Ot K44.9 DIAPHRAGMATIC HERNIA WITHOUT OBSTRUCTION 12/23/2016 [place], BERTHA Daniels Ot Z51.81 ENCOUNTER FOR THERAPEUTIC DRUG LEVEL MON 12/23/2016 [place], BERTHA Daniels Ot Z79.899 OTHER SENIOR LIVING (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 THERAPY 12/29/2016 MELY METCALF DO Ot E66.9 OBESITY, UNSPECIFIED 12/29/2016 MELY METCALF DO Ot F03.90 UNSPECIFIED DEMENTIA WITHOUT BEHAVIORAL 12/29/2016 MELY METCALF DO Ot F41.9 ANXIETY DISORDER, UNSPECIFIED 01/03/2017 MELY METCALF DO Ot E66.9 OBESITY, UNSPECIFIED 01/03/2017 MELY METCALF DO Ot F03.90 UNSPECIFIED DEMENTIA WITHOUT BEHAVIORAL 01/03/2017 MELY METCALF DO Ot F41.9 ANXIETY DISORDER, UNSPECIFIED 01/09/2017 MELY METCALF DO Ot E66.9 OBESITY, UNSPECIFIED 01/09/2017 MELY METCALF DO Ot F03.90 UNSPECIFIED DEMENTIA WITHOUT BEHAVIORAL 01/09/2017 MELY METCALF DO Ot F41.9 ANXIETY DISORDER, UNSPECIFIED 01/09/2017 MELY METCALF DO Ot E66.9 OBESITY, UNSPECIFIED 01/09/2017 MELY METCALF DO Ot F03.90 UNSPECIFIED DEMENTIA WITHOUT BEHAVIORAL 01/09/2017 MELY METCALF DO Ot F41.9 ANXIETY DISORDER, UNSPECIFIED 01/11/2017 MELY METCALF DO Ot E66.9 OBESITY, UNSPECIFIED 01/11/2017 MELY METCALF DO Ot F03.90 UNSPECIFIED DEMENTIA WITHOUT BEHAVIORAL 01/11/2017 MELY METCALF DO Ot F41.9 ANXIETY DISORDER, UNSPECIFIED 01/11/2017 MELY METCALF DO Ot E66.9 OBESITY, UNSPECIFIED 01/11/2017 MELY METCALF DO Ot F03.90 UNSPECIFIED DEMENTIA WITHOUT BEHAVIORAL 01/11/2017 MELY METCALF DO Ot F41.9 ANXIETY DISORDER, UNSPECIFIED 01/11/2017 MELY METCALF DO Ot E66.9 OBESITY, UNSPECIFIED 01/11/2017 MELY METCALF DO Ot F03.90 UNSPECIFIED DEMENTIA WITHOUT BEHAVIORAL 01/11/2017 MELY METCALF DO Ot F41.9 ANXIETY DISORDER, UNSPECIFIED 01/18/2017 MELY METCALF DO Ot E66.9 OBESITY, UNSPECIFIED 01/18/2017 MELY METCALF DO Ot F03.90 UNSPECIFIED DEMENTIA WITHOUT BEHAVIORAL 01/18/2017 MELY METCALF DO Ot F41.9 ANXIETY DISORDER, UNSPECIFIED 03/02/2017 NOEL ZARAGOZA WASTE DUSTER Ot Z12.31 ENCNTR SCREEN MAMMOGRAM FOR MALIGNANT NE 03/08/2017 NOEL ZARAGOZA WASTE DUSTER Ot Z12.31 ENCNTR SCREEN MAMMOGRAM FOR MALIGNANT NE 03/15/2017 NOEL ZARAGOZA WASTE DUSTER Ot Z12.31 ENCNTR SCREEN MAMMOGRAM FOR MALIGNANT NE 03/30/2017 NOEL ZARAGOZA WASTE DUSTER Ot Z12.31 ENCNTR SCREEN MAMMOGRAM FOR MALIGNANT NE 04/17/2017 NOEL ZARAGOZA WASTE DUSTER Ot Z12.31 ENCNTR SCREEN MAMMOGRAM FOR MALIGNANT NE 04/27/2017 Ot V76.12 OTH SCREEN MAMMO-MALIGN NEOPLASM OF PERR[place] 04/27/2017 Ot 793.80 UNSPEC ABNORMAL MAMMOGRAM 04/27/2017 Ot V72.84 EXAM PRE- OPERATIVE NOS 04/27/2017 [place], ARUNA M Ot 611.71 MASTODYNIA 04/27/2017 CURT ARAGON MD Ot 401.9 HYPERTENSION NOS 04/27/2017 CURT ARAGON MD Ot 414.00 CORON ATHEROSCLER NOS TYPE VESSEL, NATIV 04/27/2017 CURT ARAGON MD Ot 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 OCCLUSION NOS W CEREBRAL IN 04/27/2017 [place] NATION, PJ I Ot 553.3 DIAPHRAGMATIC HERNIA 04/27/2017 [place], PJ I Ot 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, ACQUIRED 04/27/2017 [place], PJ I Ot 789.00 ABDOMINAL PAIN, UNSPECIFIED SITE 04/27/2017 [place], ARUNA Vale Ot V76.12 OTH SCREEN MAMMO-MALIGN NEOPLASM OF [place] 04/27/2017 KYLE YANG Ot 272.4 HYPERLIPIDEMIA NEC/NOS 04/27/2017 KYLE YANG Ot 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 04/27/2017 KYLE YANG Ot 397.0 TRICUSPID VALVE DISEASE 04/27/2017 KYLE YANG Ot 401.9 HYPERTENSION NOS 04/27/2017 KYLE YANG Ot 414.00 CORON ATHEROSCLER NOS TYPE VESSEL, NATIV 04/27/2017 KYLE YANG Ot 429.3 CARDIOMEGALY 04/27/2017 KYLE YANG Ot 786.50 CHEST PAIN NOS 04/27/2017 KYLE YANG Ot 272.4 HYPERLIPIDEMIA NEC/NOS 04/27/2017 KYLE YANG Ot 401.9 HYPERTENSION NOS 04/27/2017 KYLE YANG Ot 414.00 CORON ATHEROSCLER NOS TYPE VESSEL, NATIV 04/27/2017 KYLE YANG K Ot 786.50 CHEST PAIN NOS 04/27/2017 [place], BERTHA Daniels Ot 427.31 ATRIAL FIBRILLATION 04/27/2017 LUCIANO SALOMON WEBLOGIC ADMINISTRATOR Ot 244.9 HYPOTHYROIDISM NOS 04/27/2017 LUCIANO SALOMON WEBLOGIC ADMINISTRATOR Ot 787.20 DYSPHAGIA, UNSPECIFIED 04/27/2017 LUCIANO SALOMON WEBLOGIC ADMINISTRATOR Ot V76.12 OTH SCREEN MAMMO-MALIGN NEOPLASM OF [place] 04/27/2017 KYLE YANG Ot E78.2 MIXED HYPERLIPIDEMIA 04/27/2017 KYLE YANG K Ot I10 ESSENTIAL (PRIMARY) HYPERTENSION 04/27/2017 KYLE YANG Ot I25.10 ATHSCL HEART DISEASE OF [place] CORONARY 04/27/2017 KYLE YANG Ot I65.23 OCCLUSION AND STENOSIS OF BILATERAL [place] 04/27/2017 CURT ARAGON MD Ot E78.2 MIXED HYPERLIPIDEMIA 04/27/2017 CURT ARAGON MD Ot I10 ESSENTIAL (PRIMARY) HYPERTENSION 04/27/2017 CURT ARAGON MD Ot I25.10 ATHSCL HEART DISEASE OF [place] CORONARY 04/27/2017 CARTER BADILLO MD Ot M25.511 PAIN IN RIGHT SHOULDER 04/27/2017 CARTER BADILLO MD Ot M54.2 CERVICALGIA 04/27/2017 LUCIANO SALOMON Ot E04.1 NONTOXIC SINGLE THYROID NODULE 04/27/2017 [place], MINO Ot R13.10 DYSPHAGIA, UNSPECIFIED 04/27/2017 MINO GARCIA MD Ot Z01.818 ENCOUNTER FOR OTHER PREPROCEDURAL EXAMIN 04/27/2017 BERTHA DHALIWAL MD Ot Z51.81 ENCOUNTER FOR THERAPEUTIC DRUG LEVEL MON 04/27/2017 BERTHA DHALIWAL MD Ot Z79.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 CARPENTER HELPER (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 THERAPY 04/27/2017 NOEL ZARAGOZA WASTE DUSTER Ot M54.9 DORSALGIA, UNSPECIFIED 04/27/2017 NOEL ZARAGOZA WASTE DUSTER Ot R07.9 CHEST PAIN, UNSPECIFIED 04/27/2017 NOEL ZARAGOZA WASTE DUSTER Ot R61 GENERALIZED HYPERHIDROSIS 04/27/2017 NOEL ZARAGOZA WASTE DUSTER Ot Z12.31 ENCNTR SCREEN MAMMOGRAM FOR MALIGNANT NE 04/27/2017 STAN DPM, SNOW Frias Ot 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 04/27/2017 KYLE YANG Ot 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, 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 04/27/2017 CARTER BADILLO MD Ot E04.2 NONTOXIC MULTINODULAR GOITER 04/27/2017 CARTER BADILLO MD Ot I25.10 ATHSCL HEART DISEASE OF [place] CORONARY 04/27/2017 CARTER BADILLO MD Ot I51.7 CARDIOMEGALY 04/27/2017 CARTER BADILLO MD Ot 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, 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 04/27/2017 CARTER BADILLO MD Ot K44.9 DIAPHRAGMATIC HERNIA WITHOUT OBSTRUCTION 04/27/2017 [place], BERTHA Daniels Ot J44.9 CHRONIC OBSTRUCTIVE PULMONARY DISEASE, U 04/27/2017 BERTHA DHALIWAL MD Ot K44.9 DIAPHRAGMATIC HERNIA WITHOUT OBSTRUCTION 04/27/2017 BERTHA DHALIWAL MD Ot Z51.81 ENCOUNTER FOR THERAPEUTIC DRUG LEVEL MON 04/27/2017 BERTHA DHALIWAL MD Ot Z79.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 CARPENTER HELPER (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 THERAPY 04/27/2017 MELY METCALF DO Ot E66.9 OBESITY, UNSPECIFIED 04/27/2017 MELY METCALF DO Ot F03.90 UNSPECIFIED DEMENTIA WITHOUT BEHAVIORAL 04/27/2017 MELY METCALF DO Ot F41.9 ANXIETY DISORDER, UNSPECIFIED 04/27/2017 NOEL ZARAGOZA APRN Ot Z12.31 ENCNTR SCREEN MAMMOGRAM FOR MALIGNANT NE 04/28/2017 BERTHA DHALIWAL MD Ot I51.7 CARDIOMEGALY 04/28/2017 BERTHA DHALIWAL MD Ot K44.9 DIAPHRAGMATIC HERNIA WITHOUT OBSTRUCTION 04/28/2017 BERTHA DHALIWAL MD Ot Z79.899 OTHER SENIOR LIVING (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 THERAPY 05/22/2017 BERTHA DHALIWAL MD Ot I51.7 CARDIOMEGALY 05/22/2017 BERTHA DHALIWAL MD, Ot K44.9 DIAPHRAGMATIC HERNIA WITHOUT OBSTRUCTION 05/22/2017 BERTHA DHALIWAL MD Ot Z79.899 OTHER SENIOR LIVING (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 THERAPY 06/07/2017 BERTHA DHALIWAL MD Ot I51.7 CARDIOMEGALY 06/07/2017 BERTHA DHALIWAL MD, Ot K44.9 DIAPHRAGMATIC HERNIA WITHOUT OBSTRUCTION 06/07/2017 BERTHA DHALIWAL MD Ot Z79.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 CARPENTER HELPER (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 THERAPY Procedures Code Description Performed By Performed On 37.22 LEFT HEART CARDIAC CATH 12/18/2012 88.42 CONTRAST AORTOGRAM 12/18/2012 88.53 LT HEART ANGIOCARDIOGRAM 12/18/2012 88.56 CORONAR ARTERIOGR-2 CATH 12/18/2012 Results Test Result Range Complete blood count (CBC) with automated white blood cell (WBC) differential - 02/25/16 13:57 Blood leukocytes automated count (number/volume) 6.3 10*3/uL 4.3-11.0 Blood erythrocytes automated count (number/volume) 4.99 10*6/uL 4.35-5.85 Venous blood hemoglobin measurement (mass/volume) 14.7 g/dL 11.5-16.0 Blood hematocrit (volume fraction) 46 % 35-52 Automated erythrocyte mean corpuscular volume 91 [foz_us] 80-99 Automated erythrocyte mean corpuscular hemoglobin (mass per erythrocyte) 30 pg 25-34 Automated erythrocyte mean corpuscular hemoglobin concentration measurement ( mass/volume) 32 g/dL 32-36 Automated erythrocyte distribution width ratio 14.7 % 10.0-14.5 Automated blood platelet count (count/volume) 207 10*3/uL 130-400 Automated blood platelet mean volume measurement 9.9 [foz_us] 7.4-10.4 Automated blood neutrophils/100 leukocytes 64 % 42-75 Automated blood lymphocytes/100 leukocytes 23 % 12-44 Blood monocytes/100 leukocytes 11 % 0-12 Automated blood eosinophils/100 leukocytes 2 % 0-10 Automated blood basophils/100 leukocytes 1 % 0-10 Blood neutrophils automated count (number/volume) 4.0 10*3 1.8-7.8 Blood lymphocytes automated count (number/volume) 1.5 10*3 1.0-4.0 Blood monocytes automated count (number/volume) 0.7 10*3 0.0-1.0 Automated eosinophil count 0.1 10*3/uL 0.0-0.3 Automated blood basophil count (count/volume) 0.1 10*3/uL 0.0-0.1 Comprehensive metabolic panel - 02/25/16 13:57 Serum or plasma sodium measurement (moles/volume) 140 mmol/L 135-145 Serum or plasma potassium measurement (moles/volume) 5.1 mmol/L 3.6-5.0 Serum or plasma chloride measurement (moles/volume) 111 mmol/L 98-107 Carbon dioxide 21 mmol/L 21-32 Serum or plasma anion gap determination (moles/volume) 8 mmol/L 5-14 Serum or plasma urea nitrogen measurement (mass/volume) 26 mg/dL 7-18 Serum or plasma creatinine measurement (mass/volume) 1.16 mg/dL 0.60-1.30 Serum or plasma urea nitrogen/creatinine mass ratio 22 NRG Serum or plasma creatinine measurement with calculation of estimated glomerular filtration rate 45 NRG Serum or plasma glucose measurement (mass/volume) 89 mg/dL 70-105 Serum or plasma calcium measurement (mass/volume) 9.6 mg/dL 8.5-10.1 Serum or plasma total bilirubin measurement (mass/volume) 1.1 mg/dL 0.1-1.0 Serum or plasma alkaline phosphatase measurement (enzymatic activity/volume) 54 U/L 40-136 Serum or plasma aspartate aminotransferase measurement (enzymatic activity/ volume) 63 U/L 5-34 Serum or plasma alanine aminotransferase measurement (enzymatic activity/volume ) 73 U/L 0-55 Serum or plasma protein measurement (mass/volume) 7.6 g/dL 6.4-8.2 Serum or plasma albumin measurement (mass/volume) 4.2 g/dL 3.2-4.5 Serum or plasma troponin i.cardiac measurement (mass/volume) - 02/25/16 13:57 Serum or plasma troponin i.cardiac measurement (mass/volume) < ng/ mL <0.30 Complete blood count (CBC) with automated white blood cell (WBC) differential - 06/22/17 02:40 Blood leukocytes automated count (number/volume) 6.0 10*3/uL 4.3-11.0 Blood erythrocytes automated count (number/volume) 5.05 10*6/uL 4.35-5.85 Venous blood hemoglobin measurement (mass/volume) 14.7 g/dL 11.5-16.0 Blood hematocrit (volume fraction) 45 % 35-52 Automated erythrocyte mean corpuscular volume 88 [foz_us] 80-99 Automated erythrocyte mean corpuscular hemoglobin (mass per erythrocyte) 29 pg 25-34 Automated erythrocyte mean corpuscular hemoglobin concentration measurement ( mass/volume) 33 g/dL 32-36 Automated erythrocyte distribution width ratio 14.8 % 10.0-14.5 Automated blood platelet count (count/volume) 159 10*3/uL 130-400 Automated blood platelet mean volume measurement 10.6 [foz_us] 7.4-10.4 Automated blood neutrophils/100 leukocytes 73 % 42-75 Automated blood lymphocytes/100 leukocytes 19 % 12-44 Blood monocytes/100 leukocytes 7 % 0-12 Automated blood eosinophils/100 leukocytes 1 % 0-10 Automated blood basophils/100 leukocytes 0 % 0-10 Blood neutrophils automated count (number/volume) 4.4 10*3 1.8-7.8 Blood lymphocytes automated count (number/volume) 1.2 10*3 1.0-4.0 Blood monocytes automated count (number/volume) 0.4 10*3 0.0-1.0 Automated eosinophil count 0.1 10*3/uL 0.0-0.3 Automated blood basophil count (count/volume) 0.0 10*3/uL 0.0-0.1 Comprehensive metabolic panel - 06/22/17 02:40 Serum or plasma sodium measurement (moles/volume) 136 mmol/L 135-145 Serum or plasma potassium measurement (moles/volume) 4.6 mmol/L 3.6-5.0 Serum or plasma chloride measurement (moles/volume) 105 mmol/L 98-107 Carbon dioxide 18 mmol/L 21-32 Serum or plasma anion gap determination (moles/volume) 13 mmol/L 5-14 Serum or plasma urea nitrogen measurement (mass/volume) 19 mg/dL 7-18 Serum or plasma creatinine measurement (mass/volume) 1.06 mg/dL 0.60-1.30 Serum or plasma urea nitrogen/creatinine mass ratio 18 NRG Serum or plasma creatinine measurement with calculation of estimated glomerular filtration rate 50 NRG Serum or plasma glucose measurement (mass/volume) 152 mg/dL 70-105 Serum or plasma calcium measurement (mass/volume) 9.2 mg/dL 8.5-10.1 Serum or plasma total bilirubin measurement (mass/volume) 0.9 mg/dL 0.1-1.0 Serum or plasma alkaline phosphatase measurement (enzymatic activity/volume) 57 U/L 40-136 Serum or plasma aspartate aminotransferase measurement (enzymatic activity/ volume) 32 U/L 5-34 Serum or plasma alanine aminotransferase measurement (enzymatic activity/volume ) 34 U/L 0-55 Serum or plasma protein measurement (mass/volume) 7.3 g/dL 6.4-8.2 Serum or plasma albumin measurement (mass/volume) 4.1 g/dL 3.2-4.5 Magnesium - 06/22/17 02:40 Magnesium 2.0 mg/dL 1.8-2.4 Serum or plasma C reactive protein measurement (mass/volume) - 06/22/17 02:40 Serum or plasma C reactive protein measurement (mass/volume) 0.13 mg /dL 0.00-0.50 Digoxin - 06/22/17 02:40 Digoxin 0.45 ng/mL 0.80-2.00 Serum or plasma lithium measurement (moles/volume) - 06/22/17 02:40 BNP level 78.6 pg/mL <100.0 Bacterial blood culture - 06/22/17 02:40 Bacterial blood culture NG NRG Influenza virus A and B antigen detection - 06/22/17 03:00 FLU RESULT NEGATIVE FOR INFLUENZA A AND B ANTIGENS BY IA NRG Blood lactic acid measurement (moles/volume) - 06/22/17 03:05 Blood lactic acid measurement (moles/volume) 1.13 mmol/L 0.50-2.00 Bacterial blood culture - 06/22/17 03:05 Bacterial blood culture NG NRG Capillary blood glucose measurement by glucometer (mass/volume) - 06/22/17 06: 25 Capillary blood glucose measurement by glucometer (mass/volume) 138 mg/dL 70-110 Complete blood count (CBC) with automated white blood cell (WBC) differential - 06/22/17 06:28 Blood leukocytes automated count (number/volume) 7.8 10*3/uL 4.3-11.0 Blood erythrocytes automated count (number/volume) 4.48 10*6/uL 4.35-5.85 Venous blood hemoglobin measurement (mass/volume) 13.0 g/dL 11.5-16.0 Blood hematocrit (volume fraction) 41 % 35-52 Automated erythrocyte mean corpuscular volume 91 [foz_us] 80-99 Automated erythrocyte mean corpuscular hemoglobin (mass per erythrocyte) 29 pg 25-34 Automated erythrocyte mean corpuscular hemoglobin concentration measurement ( mass/volume) 32 g/dL 32-36 Automated erythrocyte distribution width ratio 14.1 % 10.0-14.5 Automated blood platelet count (count/volume) 137 10*3/uL 130-400 Automated blood platelet mean volume measurement 10.3 [foz_us] 7.4-10.4 Automated blood neutrophils/100 leukocytes 84 % 42-75 Automated blood lymphocytes/100 leukocytes 8 % 12-44 Blood monocytes/100 leukocytes 8 % 0-12 Automated blood eosinophils/100 leukocytes 0 % 0-10 Automated blood basophils/100 leukocytes 0 % 0-10 Blood neutrophils automated count (number/volume) 6.6 10*3 1.8-7.8 Blood lymphocytes automated count (number/volume) 0.6 10*3 1.0-4.0 Blood monocytes automated count (number/volume) 0.6 10*3 0.0-1.0 Automated eosinophil count 0.0 10*3/uL 0.0-0.3 Automated blood basophil count (count/volume) 0.0 10*3/uL 0.0-0.1 Blood manual differential performed detection - 06/22/17 06:28 Blood monocytes/100 leukocytes 5 % NRG Manual blood segmented neutrophils/100 leukocytes 83 % NRG Blood band neutrophils/100 leukocytes 3 % NRG Manual blood lymphocytes/100 leukocytes 5 % NRG Manual eosinophils/100 leukocytes in nose 0 % NRG Manual blood basophils/100 leukocytes 0 % NRG Blood lymphocytes variant/100 leukocytes 4 % NRG Blood anisocytosis detection by light microscopy SLIGHT NRG Whole blood basic metabolic panel - 06/22/17 06:28 Serum or plasma sodium measurement (moles/volume) 137 mmol/L 135-145 Serum or plasma potassium measurement (moles/volume) 3.8 mmol/L 3.6-5.0 Serum or plasma chloride measurement (moles/volume) 106 mmol/L 98-107 Carbon dioxide 18 mmol/L 21-32 Serum or plasma anion gap determination (moles/volume) 13 mmol/L 5-14 Serum or plasma urea nitrogen measurement (mass/volume) 17 mg/dL 7-18 Serum or plasma creatinine measurement (mass/volume) 0.92 mg/dL 0.60-1.30 Serum or plasma urea nitrogen/creatinine mass ratio 18 NRG Serum or plasma creatinine measurement with calculation of estimated glomerular filtration rate 58 NRG Serum or plasma glucose measurement (mass/volume) 150 mg/dL 70-105 Serum or plasma calcium measurement (mass/volume) 8.6 mg/dL 8.5-10.1 Complete urinalysis with reflex to culture - 06/22/17 10:47 Urine color determination YELLOW NRG Urine clarity determination CLEAR NRG Urine pH measurement by test strip 6.5 5-9 Specific gravity of urine by test strip 1.005 1.016- 1.022 Urine protein assay by test strip, semi-quantitative NEGATIVE NEGATIVE Urine glucose detection by automated test strip NEGATIVE NEGATIVE Erythrocytes detection in urine sediment by light microscopy NEGATIVE NEGATIVE Urine ketones detection by automated test strip NEGATIVE NEGATIVE Urine nitrite detection by test strip NEGATIVE NEGATIVE Urine total bilirubin detection by test strip NEGATIVE NEGATIVE Urine urobilinogen measurement by automated test strip (mass/volume) NORMAL NORMAL Urine leukocyte esterase detection by dipstick NEGATIVE NEGATIVE Automated urine sediment erythrocyte count by microscopy (number/high power field) NONE NRG Automated urine sediment leukocyte count by microscopy (number/high power field ) NONE NRG Bacteria detection in urine sediment by light microscopy NEGATIVE NRG Squamous epithelial cells detection in urine sediment by light microscopy 2-5 NRG Crystals detection in urine sediment by light microscopy NONE NRG Casts detection in urine sediment by light microscopy NONE NRG Mucus detection in urine sediment by light microscopy NEGATIVE NRG Complete urinalysis with reflex to culture NO NRG Yeast detection in urine sediment by light microscopy FEW NRG Capillary blood glucose measurement by glucometer (mass/volume) - 06/22/17 11: 43 Capillary blood glucose measurement by glucometer (mass/volume) 120 mg/dL 70-110 Capillary blood glucose measurement by glucometer (mass/volume) - 06/22/17 15: 59 Capillary blood glucose measurement by glucometer (mass/volume) 189 mg/dL 70-110 Capillary blood glucose measurement by glucometer (mass/volume) - 06/22/17 20: 31 Capillary blood glucose measurement by glucometer (mass/volume) 182 mg/dL 70-110 Capillary blood glucose measurement by glucometer (mass/volume) - 06/23/17 05: 06 Capillary blood glucose measurement by glucometer (mass/volume) 207 mg/dL 70-110 Automated blood complete blood count (hemogram) panel - 06/23/17 06:11 Blood leukocytes automated count (number/volume) 5.2 10*3/uL 4.3-11.0 Blood erythrocytes automated count (number/volume) 4.03 10*6/uL 4.35-5.85 Venous blood hemoglobin measurement (mass/volume) 11.8 g/dL 11.5-16.0 Blood hematocrit (volume fraction) 33 % 35-52 Automated erythrocyte mean corpuscular volume 81 [foz_us] 80-99 Automated erythrocyte mean corpuscular hemoglobin (mass per erythrocyte) 29 pg 25-34 Automated erythrocyte mean corpuscular hemoglobin concentration measurement ( mass/volume) 36 g/dL 32-36 Automated erythrocyte distribution width ratio 13.9 % 10.0-14.5 Automated blood platelet count (count/volume) 130 10*3/uL 130-400 Automated blood platelet mean volume measurement 9.7 [foz_us] 7.4-10.4 Comprehensive metabolic panel - 06/23/17 06:11 Serum or plasma sodium measurement (moles/volume) 139 mmol/L 135-145 Serum or plasma potassium measurement (moles/volume) 3.5 mmol/L 3.6-5.0 Serum or plasma chloride measurement (moles/volume) 109 mmol/L 98-107 Carbon dioxide 18 mmol/L 21-32 Serum or plasma anion gap determination (moles/volume) 12 mmol/L 5-14 Serum or plasma urea nitrogen measurement (mass/volume) 18 mg/dL 7-18 Serum or plasma creatinine measurement (mass/volume) 1.20 mg/dL 0.60-1.30 Serum or plasma urea nitrogen/creatinine mass ratio 15 NRG Serum or plasma creatinine measurement with calculation of estimated glomerular filtration rate 43 NRG Serum or plasma glucose measurement (mass/volume) 221 mg/dL 70-105 Serum or plasma calcium measurement (mass/volume) 8.6 mg/dL 8.5-10.1 Serum or plasma total bilirubin measurement (mass/volume) 0.5 mg/dL 0.1-1.0 Serum or plasma alkaline phosphatase measurement (enzymatic activity/volume) 40 U/L 40-136 Serum or plasma aspartate aminotransferase measurement (enzymatic activity/ volume) 16 U/L 5-34 Serum or plasma alanine aminotransferase measurement (enzymatic activity/volume ) 23 U/L 0-55 Serum or plasma protein measurement (mass/volume) 6.3 g/dL 6.4-8.2 Serum or plasma albumin measurement (mass/volume) 3.5 g/dL 3.2-4.5 Encounters ACCT No. Visit Date/Time Discharge Status Pt. Type Provider Facility Loc./Unit Complaint [id number] 04/27/2017 14:16:00 04/27/2017 23:59:59 CLS Outpatient BERTHA DHALIWAL MD [facility] RAD Z51.81, Z79.899 [id number] 03/09/2017 12:29:00 03/09/2017 23:59:59 CLS Outpatient NOEL ZARAGOZA APRN [facility] RAD SCREENING [id number] 12/28/2016 14:42:00 12/28/2016 23:59:59 CLS Outpatient MELY METCALF DO [facility] RT DEMENTIA F03.90, ANXIETY F41.9,OBESITY E66.9 [id number] 11/07/2016 14:16:00 12/06/2016 16:00:00 DIS Outpatient ANJELICA HUBBARD MD [facility] WOUNDCARE [id number] 09/16/2016 09:52:00 09/16/2016 23:59:59 CLS Outpatient MADHURI NATION, BERTHA Daniels [facility] RAD Z51.81,Z79.899 [id number] 08/21/2016 11:22:00 08/21/2016 11:54:00 DIS Emergency TAD BOSS [facility] ER WOUND CHECK [id number] 08/20/2016 19:20:00 08/20/2016 22:45:00 DIS Emergency TAD BOSS [facility] ER BLEEDING AT SURGICAL SITE [id number] 07/05/2016 09:17:00 07/05/2016 23:59:59 CLS Outpatient CARTER BADILLO MD [facility] RAD ABNORMAL CHEST XRAY, FOLLOW UP THYROID NODULES [id number] 07/05/2016 09:11:00 07/05/2016 23:59:59 CLS Outpatient KYLE YANG [facility] RAD AORTIC ANEURYSM, THORACIC [id number] 06/30/2016 07:34:00 06/30/2016 23:59:59 CLS Outpatient SNOW PIERCE DPM [facility] RAD LIPOMA RIGHT ANKLE [id number] 06/30/2016 10:00:00 06/30/2016 10:00:00 CAN Preadmit NOEL ZARAGOZA APRN [facility] RAD ABNORMAL CHEST XR [id number] 03/07/2016 14:51:00 03/07/2016 23:59:59 CLS Outpatient NOEL ZARAGOZA APRN [facility] RAD SCREENING [id number] 02/25/2016 13:37:00 02/25/2016 23:59:59 CLS Outpatient NOEL ZARAGOZA APRN [facility] CARD CHEST PAIN,BACK PAIN ,DIAPHORESIS [id number] 01/06/2016 20:56:00 01/07/2016 06:35:00 DIS Outpatient CARTER BADILLO MD [facility] SLEEP OBSERVED APNEAS, SNORING,NAYELI,HTN,DAYTIME SLEEPINESS [id number] 11/08/2015 08:47:00 11/08/2015 09:55:00 DIS Emergency FRANCISCO PABLO MD [facility] ER SORE THROAT,BILAT EAR PAIN [id number] 10/02/2015 12:45:00 10/02/2015 23:59:59 CLS Outpatient BERTHA DHALIWAL MD [facility] RAD ENCOUNTER FOR MONITORING AMIODARONE THERAPY [id number] 07/15/2015 10:25:00 07/15/2015 14:10:00 DIS Outpatient MINO GARCIA MD [facility] SDC DYSPHAGIA [id number] 07/13/2015 14:55:00 07/13/2015 23:59:59 CLS Outpatient MINO GARCIA MD [facility] PREOP DYSPHAGIA [id number] 06/30/2015 09:23:00 06/30/2015 23:59:59 CLS Outpatient LUCIANO SALOMON [facility] RAD THYROID NODULES [id number] 06/10/2015 07:33:00 06/10/2015 23:59:59 CLS Outpatient CURT ARAGON MD [facility] CARD CAD,CAROTID ARTERY STENOSIS,HTN,HYPERLIPIDEMIA [id number] 06/09/2015 07:46:00 06/09/2015 23:59:59 CLS Outpatient KYLE YANG [facility] CARD CAD,CAROTID ARTERY STENOSIS,HTN,HYPERLIPIDEMIA [id number] 05/12/2015 12:34:00 05/12/2015 23:59:59 CLS Outpatient CARTER BADILLO MD [facility] RAD NECK AND RIGHT SHOULDER PAIN, [id number] 05/06/2015 16:53:00 05/06/2015 19:22:00 DIS Emergency JAMES MOTTA DO [facility] ER HEADACHE,NAUSEA,WEAKNESS [id number] 02/18/2015 11:16:00 02/18/2015 23:59:59 CLS Outpatient UMMMICHELLEIE Akanksha WEBLOGIC ADMINISTRATOR [facility] RAD SCREENING [id number] 12/22/2014 11:08:00 12/22/2014 23:59:59 CLS Outpatient SALOMONLUCIANO WEBLOGIC ADMINISTRATOR [facility] RAD HYPOTHYROIDISM [id number] 11/19/2014 06:46:00 11/19/2014 23:59:59 CLS Outpatient BERTHA DHALIWAL MD [facility] RT PAROXYSMAL ATRIAL FIBRILLATION [id number] 10/22/2014 16:19:00 10/22/2014 20:14:00 DIS Emergency LEANA NATION, AIDA Ibarra [facility] ER SOA [id number] 05/21/2014 07:00:00 05/22/2014 10:20:00 DIS Outpatient CURT ARAGON MD [facility] CATH ABNORMAL STRESS, CP,HTN, HLP [id number] 05/08/2014 10:24:00 05/08/2014 23:59:59 CLS Outpatient KYLE YANG [facility] CARD CAD,CP,HTN [id number] 05/05/2014 07:44:00 05/05/2014 23:59:59 CLS Outpatient KYLE YANG [facility] CARD CAD,CP,HTN [id number] 02/13/2014 13:07:00 02/13/2014 23:59:59 CLS Outpatient ARUNA EGAN MD [facility] RAD SCREENING [id number] 11/25/2013 09:01:00 11/25/2013 10:21:00 DIS Emergency KALIA DOJAMES K [facility] ER CHEST/UPPER BACK PAIN [id number] 09/16/2013 08:15:00 09/16/2013 23:59:59 CLS Outpatient PJ ALMANZAR MD, I [facility] RAD ABD PAIN [id number] 07/08/2013 16:33:00 07/08/2013 23:59:59 CLS Outpatient CURT ARAGON MD [facility] RAD CAD,CVA [id number] 12/18/2012 11:15:00 12/21/2012 22:00:00 DIS Inpatient ARUNA EGAN MD [facility] CSD CHEST PAIN [id number] 12/10/2012 12:35:00 12/10/2012 23:59:59 CLS Outpatient ARUNA EGAN MD [facility] RAD L BREAST PAIN [id number] 06/22/2017 02:55:00 Document Registration [id number] 11/18/2014 11:44:00 Document Registration [id number] 11/18/2014 11:43:00 Document Registration [id number] 11/18/2014 11:43:00 Document Registration [id number] 11/18/2014 11:43:00 Document Registration [id number] 11/18/2014 11:43:00 Document Registration [id number] 09/24/2012 06:47:00 Document Registration [id number] 05/07/2012 07:04:00 Document Registration [id number] 05/04/2012 08:10:00 Document Registration [id number] 03/13/2012 12:47:00 Document Registration [id number] 12/15/2011 09:11:00 Document Registration [id number] 10/11/2011 12:54:00 Document Registration [id number] 09/14/2011 18:15:00 Document Registration [id number] 09/07/2011 12:10:00 Document Registration [id number] 12/03/2010 08:32:00 Document Registration [id number] 11/23/2010 13:43:00 Document Registration [id number] 06/10/2010 06:19:00 Document Registration [id number] 11/25/2009 07:50:00 Document Registration
--- OUTSIDE RECORDS SUMMARY | 2017-06-23 08:35 | XMS REPORT | Continuity of Care Document ---
Author Author [facility] Organization [facility] Address Unknown Phone Unavailable Care Team Providers Care Accounting Instructor Name Role Phone [employer] Unavailable Unavailable Problems Medications Allergies, Adverse Reactions, Alerts Immunizations Results Vital Signs Encounters Location Location Details Encounter Type Encounter Number Reason For Visit Attending Provider ADM Date DC Date Status Source OUTPATIENT [id number] BERTHA DHALIWAL 11/18/2016 11/18/2016 Active [facility] OUTPATIENT [id number] ISAIAH OROSCO 02/22/2017 Active [facility] OUTPATIENT [id number] BERTHA DHALIWAL 05/18/2017 05/18/2017 Active [facility] O Active [facility] Procedures Plan of Care Social History Assessment and Plan Family History Advance Directives Functional Status
--- OUTSIDE RECORDS SUMMARY | 2017-06-23 08:36 | XMS REPORT | Encounter Summary ---
Author Author [facility] Organization [facility] Address Unknown Phone Unavailable Care Team Providers Care Kiss Mixer Name Role Phone PCP Unavailable Encounter Details Date Type Department Care Team Description 05/18/2017 Ancillary [facility] Marty Trejo MD Cardiac device in situ Orders [address] [place] [address] [place] [address] [phone] Social History Tobacco Use Types Packs/Day Years [...] # REVO MRI RVDR01 Generator Serial # [id number] Generator Implnat Date 10/18/2011 FÉLIX/EOL Indicator PLUMBING ENGINEER=2.81V Generator Treasury Representative [employer] Generator Investigational No Wireless Generator No Device Type DDD-PM Atrial Lead Model # CAPSUREFIX MRI SURESCAN 5086-52cm Atrial Lead Serial # [id number] Atrial Lead Implant Date 10/18/2011 Atrial Lead Diaph. 10 Stimulation Atrial Lead Treasury Representative [employer]onic Atrial Lead No Investigational Atrial Lead Fixation active fixation Atrial Lead Location right atrial appendage Atrial Lead Pin Connector IS1 Atrial Lead Polarity Bipolar RV Lead Model # CAPSUREFIX MRI SURESCAN 5086-58cm RV Lead Serial # [id number] RV Lead Implant Date 10/18/2011 RV Lead Diaph. 10 Stimulation RV Lead Treasury Representative [employer] RV Lead Investigational No RV Lead [...] Dr. Trejo Name EP Device Followed By [facility] Device Caroline Carelink Express Transmitter Compatible On AntiCoag Date 10/10/16 Known Diagnosed AFib Yes On Anticoagulation Yes Generator MRI Conditional Yes Atrial Lead MRI Yes Conditional LV Lead MRI Conditional Yes Initial Rhythm AP-CLINICAL ATHLETIC INSTRUCTOR Underlying Rhythm SB 51 bpm # Mode S. Events 233 Treated/50 monitored # High AT/AF Evts - Time in AT/AF 3.3% V Rate in AT/AF Mostly 100 bpm Single PVSc 1.4/hr (2.5) PVC runs 0.2/hr (0.6) Battery Voltage 2.95 (PLUMBING ENGINEER @ 2.81) A Sense mv 3.6 [...] Interrogation? Yes Remote Check? No -VS% <1 -CLINICAL ATHLETIC INSTRUCTOR% 3.4 -VS% <1 AP-CLINICAL ATHLETIC INSTRUCTOR% 96.6 Specimen Performing Laboratory OTHER OUTSIDE LAB Narrative OP Clinic Check [05/18/2017 2:08:07 PM - REBEKAH BARAHONA] [05/19/2017 6:58:48 AM - JIMMY DAYL] Dual chamber pacemaker programming.Device function appears normal. CLINICAL ATHLETIC INSTRUCTOR >99%. Pts underlying SC interval today ~360 ms. Last visit SC interval was 340 ms and AR interval [...]
--- OUTSIDE RECORDS SUMMARY | 2017-06-23 08:36 | XMS REPORT | Encounter Summary ---
Author Author [facility] Organization [facility] Address Unknown Phone Unavailable Care Team Providers Care Butter Liquefier Name Role Phone PCP Unavailable Reason for Visit * Reason Comments Results CXR completed outside hospital Encounter Details Date Type Department Care Team Description 05/09/2017 Documentation [facility] Sasha Chen, RN Results (CXR completed [address] outside hospital) [address] [place] [address] Social History Tobacco Use Types Packs/Day Years Used Date Never Smoker Smokeless Tobacco: Never Used Alcohol Use Drinks/Week oz/Week Comments No Sex Assigned at Date Recorded Not on file as of this encounter Progress Notes * Sasha Chen, RN - 05/09/2017 1:30 PM SLP TEACHER [facility]: 04/27/17 CXR Impression: [id number] hiatal hernia. cardiomegaly. will send report to be scanned in this encounter Plan of Treatment Not on fileas of this encounter Visit Diagnoses Not on filein this encounter
--- OUTSIDE RECORDS SUMMARY | 2017-06-23 08:36 | XMS REPORT | Encounter Summary ---
Author Author [facility] Organization [facility] Address Unknown Phone Unavailable Care Team Providers Care General Foreman Name Role Phone PCP Unavailable Reason for Visit * Reason Comments Labs Only Encounter Details Date Type Department Care Team Description 05/18/2017 Lab Only [facility] [place] Internal Paroxysmal atrial Medicine fibrillation [address] [place] [address] ([facility]);Cardiac pacemaker [address] [place] [address] Social History Tobacco Use Types Packs/Day Years [...]
--- OUTSIDE RECORDS SUMMARY | 2017-06-23 08:36 | XMS REPORT | Encounter Summary ---
Author Author [facility] Organization [facility] Address Unknown Phone Unavailable Care Team Providers Care Concrete Pouring Supervisor Name Role Phone PCP Unavailable Reason for Visit * Reason Comments Amiodarone Monitoring completed 05/18/17 due 11/15/16 Encounter Details Date Type Department Care Team Description 05/19/2017 Documentation [facility] Sasha Chen, RN Amiodarone Monitoring [address] (completed 05/18/17 due [address] 11/15/16) [place] [address] Social History Tobacco Use Types Packs/Day Years Used Date Never Smoker Smokeless Tobacco: Never Used Alcohol Use Drinks/Week oz/Week Comments No Sex Assigned at Date Recorded Not on file as of this encounter Progress Notes * Sasha Chen RN - 05/19/2017 2:30 PM BLUE PRINTS TRIMMER labs results reviewed with her daughter * Sasha Chen RN - 05/19/2017 2:30 PM BLUE PRINTS TRIMMER Formatting of this note may be different from the original. Amiodarone Monitoring status as of 05/19/17: Amiodarone monitoring complete. Next amiodarone review is due in 180 days. Most recent lab results Lab Results Component Value Date/Time AST 24 04/24/2017 ALT 24 04/24/2017 TSH 6.17 (H) 04/24/2017 TSH3G 5.02 (H) 05/18/2017 03:14 PM [id number] 1.3 05/18/2017 03:14 PM Procedures Last chest X-Ray: 04/27/17 Last PFT: 12/03/14 Last eye exam: in this encounter Plan of Treatment Not on fileas of this encounter Visit Diagnoses Not on filein this encounter
--- OUTSIDE RECORDS SUMMARY | 2017-06-23 08:36 | XMS REPORT | Encounter Summary ---
Author Author [facility] Organization [facility] Address Unknown Phone Unavailable Care Team Providers Care Property Site Manager Name Role Phone PCP Unavailable Reason for Visit * Reason Comments Atrial fibrillation 6 month follow up Encounter Details Date Type Department Care Team Description 05/18/2017 Office Visit [facility] Cardiology Marty Trejo MD Atrial fibrillation ([address] month follow up) [address] [place] [address] [place] [address] [phone] Social History Tobacco Use Types Packs/Day Years Used Date Never Smoker Smokeless Tobacco: Never Used Alcohol Use Drinks/Week oz/Week Comments No Sex Assigned at Date Recorded Not on file as of this encounter Last Filed Vital Signs Vital Sign Reading Time Taken Blood Pressure 110/78 05/18/2017 1:22 PM SWITCHMAN SUPERVISOR Pulse 77 05/18/2017 1:22 PM SWITCHMAN SUPERVISOR Temperature - - Respiratory Rate - - Oxygen Saturation - - Inhaled Oxygen - - Concentration Weight 82 kg (180 lb 11.2 oz) 05/18/2017 1:22 PM SWITCHMAN SUPERVISOR Height 167.6 cm (5' 6") 05/18/2017 1:22 PM SWITCHMAN SUPERVISOR Body Mass Index 29.17 05/18/2017 1:22 PM SWITCHMAN SUPERVISOR in this encounter Instructions * Patient Instructions - Sasha Chen, STEVEN - 05/18/2017 1:30 PM SWITCHMAN SUPERVISOR Decrease your amioderone 100 mg per day have your labs drawn today: TSH, free T4, digoxin level call for lab results tomorrow if you do not receive them by phone take by mouth vitamin B12 Follow up with Dr Trejo once year with device check in this encounter Progress Notes * Marty Trejo MD - 05/18/2017 1:30 PM SWITCHMAN SUPERVISOR Formatting of this note may be different from the original. Date of Service: 05/18/2017 Faiza Nation is a 82 y.o. female. HPI I had the pleasure of seeing your patient Faiza Nation in the [facility] as a part of the [facility] [place] office today for follow up regarding her Atrial Fibrillation and Permanent Pacemaker. Her Primary Front End Loader Operator is my friend and colleague, Dr. Gruber in [place], [place]. Ms. Nation is an exceptionally pleasant [...] ms during A-only pacing. She has a [id number] score of 4: Age (x2), Female, HTN. [...] 09/2013: Elevated Digoxin level --> Changed to [id number] dosing. -- 10/2014: Recurrent AFIB --> DC'ed Sotalol, Initiated Amiodarone --> Improved AFIB [place]. -- 12/31/15: Elevated LFTs --> Decreased Amiodarone [...] chest discomfort --> Presented to ED in [place], [place]. Her evaluation was apparently unremarkable. She [...] Near syncope 09/16/2011 09/14/11 hospital admission to [facility] in [place], [place]. Reveal device 9529 implanted by [facility] [...] bradycardia 51 bpm with a markedly prolonged [place] interval of 360+ ms in the past [...] Take 25 mg by mouth twice daily. [place]-3 Acid Ethyl Esters (LOVAZA) 1 gram cap [...]
--- OUTSIDE RECORDS SUMMARY | 2017-06-23 08:36 | XMS REPORT | Clinical Summary ---
Author Author [facility] Organization [facility] Address Unknown Phone Unavailable Care Team Providers Care Sales Route Driver Name Role Phone PCP Unavailable Source Comments Some departments are not documenting in the electronic medical record. If you do not see the information that you expected, contact Release of Information in the Health Information Management department at [phone] for further assistance in locating additional records.[facility] Allergies Active Allergy Reactions Severity Noted Date [...] every Active tablet 6 hours as needed. [place]-3 Acid Ethyl Esters Take 1 Cap by [...] syncope 09/16/2011 Overview: 09/14/11 hospital admission to [facility] in [place], [place]. Reveal device 9529 implanted by Allyn [...] Medical treatment, started Plavix. 09/14/11 Admitted to [facility] ( [facility]) with CP & palpitations. Stress [...] Taken Blood Pressure 110/78 05/18/2017 1:22 PM RETAIL SALES LEAD Pulse 77 05/18/2017 1:22 PM RETAIL SALES LEAD Temperature 36.5 C (97.7 F) 05/01/2013 11:23 AM RETAIL SALES LEAD Respiratory Rate 18 03/07/2013 2:25 PM CDT Oxygen Saturation 98% 05/01/2013 11:23 AM RETAIL SALES LEAD Inhaled Oxygen - - Concentration Weight 82 kg (180 lb 11.2 oz) 05/18/2017 1:22 PM RETAIL SALES LEAD Height 167.6 cm (5' 6") 05/18/2017 1:22 PM RETAIL SALES LEAD Body Mass Index 29.17 05/18/2017 1:22 PM RETAIL SALES LEAD Plan of Treatment Health Maintenance Due Date Last Done Comments PHYSICAL (COMPREHENSIVE) 1941 EXAM PERTUSSIS VACCINE 1945 TETANUS VACCINE 1951 SHINGLES VACCINE 1994 OSTEOPOROSIS SCREENING 1999 PREVNAR/PNEUMOVAX (#1) 1999 INFLUENZA VACCINE 01/17/2017 Results * THYROID STIMULATING HORMONE-TSH (05/18/2017 3:14 PM) Component Value Ref Range TSH 3rd Generation 5.02 (H) 0.40 - 4.50 mIU/L Comment: Test Performed at: [facility] [address] CARLITOS HERNANDEZ DO,MPH Specimen Performing Laboratory [facility] [address] [place] [address] * FREE T4 (FREE THYROXINE) ONLY (05/18/2017 3:14 PM) Component Value Ref Range T4-Free 1.3 0.8 - 1.8 ng/dL Comment: Test Performed at: [facility] [address] CARLITOS HERNANDEZ DO,MPH Specimen Performing Laboratory [facility] [address] [place] [address] * DIGOXIN LEVEL (05/18/2017 3:14 PM) Component Value Ref Range Digoxin 0.6 (L) 0.8 - 2.0 mcg/L Comment: LILLI Anti-Digoxin (Digibind(R)) in serum/plasma of patients under toxicity therapy may interfere with the digoxin immunoassay. Test Performed at: [facility] [address] [place] [address] CARLITOS HERNANDEZ DO,MPH Specimen Performing Laboratory [facility] [address] [place] [address] * DEVICE EVALUATION - PPM (05/18/2017 1:16 PM) Component Value Ref Range Generator Model # REVO MRI RVDR01 Generator Serial # [id number] Generator Implnat Date 10/18/2011 FÉLIX/EOL Indicator KNIT GOODS PRESS HAND=2.81V Generator Solo Truck Driver [employer] Generator Investigational No Wireless Generator No Device Type DDD-PM Atrial Lead Model # CAPSUREFIX MRI SURESCAN 5086-52cm Atrial Lead Serial # [id number] Atrial Lead Implant Date 10/18/2011 Atrial Lead Diaph. 10 Stimulation Atrial Lead Solo Truck Driver [employer]tronic Atrial Lead No Investigational Atrial Lead Fixation active fixation Atrial Lead Location right atrial appendage Atrial Lead Pin Connector IS1 Atrial Lead Polarity Bipolar RV Lead Model # CAPSUREFIX PANT[employer] Systems SURESCAN 5086-58cm RV Lead Serial # [id number] RV Lead Implant Date 10/18/2011 RV Lead Diaph. 10 Stimulation RV Lead Solo Truck Driver Medtronic RV Lead Investigational No RV Lead [...] Dr. Trejo Name EP Device Followed By [facility] Device [place] [facility] Express Transmitter Compatible On AntiCoag Date 10/10/16 Known Diagnosed AFib Yes On Anticoagulation Yes Generator MRI Conditional Yes Atrial Lead MRI Yes Conditional LV Lead MRI Conditional Yes Initial Rhythm AP-RAG WASHER Underlying Rhythm SB 51 bpm # Mode S. Events 233 Treated/50 monitored # High AT/AF Evts - Time in AT/AF 3.3% V Rate in AT/AF Mostly 100 bpm Single PVSc 1.4/hr (2.5) PVC runs 0.2/hr (0.6) Battery Voltage 2.95 (KNIT GOODS PRESS HAND @ 2.81) A Sense mv 3.6 A [...] Interrogation? Yes Remote Check? No -VS% <1 -RAG WASHER% 3.4 -VS% <1 AP-RAG WASHER% 96.6 Specimen Performing Laboratory OTHER OUTSIDE LAB Narrative OP Clinic Check [05/18/2017 2:08:07 PM - REBEKAH BARAHONA] [05/19/2017 6:58:48 AM - JIMMY DALY] Dual chamber pacemaker programming.Device function appears normal. RAG WASHER >99%. Pts underlying PA interval today ~360 ms. Last visit PA interval was 340 ms and AR interval [...] 4.67 Specimen Performing Laboratory [facility] [address] , [address] [place] [address] * LIVER FUNCTION PANEL (04/24/2017) Component Value Ref Range Total Bilirubin 0.7 Bilirubin, Direct 0.1 Albumin 4.1 Alk Phosphatase 50 AST (SGOT) 24 ALT (SGPT) 24 Total Protein Specimen Performing Laboratory [facility] [address] , [address] [place] [address] from Last 3 Months
--- OUTSIDE RECORDS SUMMARY | 2017-06-23 08:36 | XMS REPORT | Encounter Summary ---
Author Author [facility] Organization [facility] Address Unknown Phone Unavailable Care Team Providers Care Leather Tooler Name Role Phone PCP Unavailable Reason for Visit * Reason Comments Medication Question verify Amiodarone instructions Encounter Details Date Type Department Care Team Description 05/22/2017 Telephone [facility] Cardiology Leann Nguyen, foam charger Question [address] [place] (verify Amiodarone [address] instructions) [place] [address] Social History Tobacco Use Types Packs/Day Years Used Date Never Smoker Smokeless Tobacco: Never Used Alcohol Use Drinks/Week oz/Week Comments No Sex Assigned at Date Recorded Not on file as of this encounter Miscellaneous Notes * Telephone Encounter - Leann Nguyen, STEVEN - 05/22/2017 9:40 AM NURSE INTERN 05/22/17 [phone] Daughter calling to see what dose of Amiodarone pt should be taking. I spoke to daughter. Last MAC ov was 05/18/17. Amiodarone dose was decreased to 100 mg per day . Daughter verbalized understanding. Refilled Amiodarone - [facility] pharmacy # [id number] - 3 refills ---- Message from Shalini Blake sent at 05/22/2017 8:23 AM NURSE INTERN ----- Regarding: VM-MPE,Medication Patient called Monday with Medication questions. Home is the call back. in this encounter Plan of Treatment Not on fileas of this encounter Visit Diagnoses Not on filein this encounter
--- OUTSIDE RECORDS SUMMARY | 2017-06-23 08:36 | XMS REPORT | Encounter Summary ---
Author Author [facility] Organization [facility] Address Unknown Phone Unavailable Care Team Providers Care Office Rn Name Role Phone PCP Unavailable Encounter Details Date Type Department Care Team Description 05/18/2017 [facility] Cardiology Marty Trejo MD Encounter [id number] [place] [address] [place] [address] Social History Tobacco Use Types [...] mouth twice (LOPRESSOR) 25 mg tablet daily. [place]-3 Acid Ethyl Esters Take 1 Cap by [...] # REVO MRI RVDR01 Generator Serial # [id number] Generator Implnat Date 10/18/2011 FÉLIX/EOL Indicator CORE ANALYSIS OPERATOR=2.81V Generator Pump Operator Medtronic Generator Investigational No Wireless Generator No Device Type DDD-PM Atrial Lead Model # CAPSUREFIX MRI SURESCAN 5086-52cm Atrial Lead Serial # [id number] Atrial Lead Implant Date 10/18/2011 Atrial Lead Diaph. 10 Stimulation Atrial Lead Pump Operator Medtronic Atrial Lead No Investigational Atrial Lead Fixation active fixation Atrial Lead Location right atrial appendage Atrial Lead Pin Connector IS1 Atrial Lead Polarity Bipolar RV Lead Model # CAPSUREFIX MRI SURESCAN 5086-58cm RV Lead Serial # [id number] RV Lead Implant Date 10/18/2011 RV Lead Diaph. 10 Stimulation RV Lead Pump Operator Medtronic RV Lead Investigational No RV Lead [...] Name EP Device Followed By [facility] Device [place] [facility] Express Transmitter Compatible On AntiCoag Date 10/10/16 Known Diagnosed AFib Yes On Anticoagulation Yes Generator MRI Conditional Yes Atrial Lead MRI Yes Conditional LV Lead MRI Conditional Yes Initial Rhythm AP-GREASE PACKER Underlying Rhythm SB 51 bpm # Mode S. Events 233 Treated/50 monitored # High AT/AF Evts - Time in AT/AF 3.3% V Rate in AT/AF Mostly 100 bpm Single PVSc 1.4/hr (2.5) PVC runs 0.2/hr (0.6) Battery Voltage 2.95 (CORE ANALYSIS OPERATOR @ 2.81) A Sense mv 3.6 [...] Interrogation? Yes Remote Check? No -VS% <1 -GREASE PACKER% 3.4 -VS% <1 AP-GREASE PACKER% 96.6 Specimen Performing Laboratory OTHER OUTSIDE LAB Narrative OP Clinic Check [05/18/2017 2:08:07 PM - REBEKAH BARAHONA] [05/19/2017 6:58:48 AM - JIMMY DALY] Dual chamber pacemaker programming.Device function appears normal. GREASE PACKER >99%. Pts underlying IN interval today ~360 [...]
--- OUTSIDE RECORDS SUMMARY | 2017-06-23 08:36 | XMS REPORT | Encounter Summary ---
Author Author [facility] Organization [facility] Address Unknown Phone Unavailable Care Team Providers Care Sales Enablement Lead Name Role Phone PCP Unavailable Encounter Details Date Type Department Care Team Description 05/18/2017 Orders Only [facility] [place] [address] [place], [place] [id number] [place] [address] Social History Tobacco Use Types Packs/Day [...] with the digoxin immunoassay. Test Performed at: [facility] [address] [place] [address] CARLITOS HERNANDEZ DO,MPH Specimen Performing Laboratory [facility] [address] [place] [address] * THYROID STIMULATING HORMONE-TSH (05/18/2017 3:14 PM) Component Value Ref Range TSH 3rd Generation 5.02 (H) 0.40 - 4.50 mIU/L Comment: Test Performed at: [facility] [address] [place] [address] CARLITOS HERNANDEZ DO,MPH Specimen Performing Laboratory [facility] [address] [place] [address] * FREE T4 (FREE THYROXINE) ONLY (05/18/2017 3:14 PM) Component Value Ref Range T4-Free 1.3 0.8 - 1.8 ng/dL Comment: Test Performed at: [facility] [address] [place] [address] CARLITOS HERNANDEZ DO,MPH Specimen Performing Laboratory [facility] [address] [place] [address] in this encounter Visit Diagnoses Not on filein this encounter
--- OUTSIDE RECORDS SUMMARY | 2017-06-23 08:37 | XMS REPORT | Encounter Summary ---
Author Author [facility] Organization [facility] Address Unknown Phone Unavailable Care Team Providers Care Director Of Digital Marketing Name Role Phone PCP Unavailable Encounter Details Date Type Department Care Team Description 04/26/[address] [facility] [place] [address] [place], [place] [address] Social History Tobacco Use Types Packs/Day Years Used Date Never Smoker Smokeless Tobacco: Never Used Alcohol Use Drinks/Week oz/Week Comments No Sex Assigned at Date Recorded Not on file as of this encounter Miscellaneous Notes * Telephone Encounter - Sasha Chen RN - 04/26/2017 5:03 PM SLAT BASKET MAKER HELPER MACHINE refaxed order after Dr Trejo signed * Telephone Encounter - Sasha Chen RN - 04/26/2017 5:03 PM SLAT BASKET MAKER HELPER MACHINE ----- Message from Mena Dozier RN sent at 04/26/2017 1:28 PM SLAT BASKET MAKER HELPER MACHINE ----- Regarding: FW: VM-Chest X-ray ----- Message ----- From: Shalini Blake Sent: 04/26/2017 1:10 PM To: Олег Nurse Ep Subject: VM-Chest X-ray Yaquelin with [facility] calling. patient came in with chest x-ray order. They need a signed,date and timed order faxed to [phone] Call back is [phone] in this encounter Plan of Treatment Not on fileas of this encounter Visit Diagnoses Not on filein this encounter
--- OUTSIDE RECORDS SUMMARY | 2017-06-23 08:37 | XMS REPORT | Encounter Summary ---
Author Author [facility] Organization [facility] Address Unknown Phone Unavailable Care Team Providers Care Medical Transport Specialist Name Role Phone PCP Unavailable Encounter Details Date Type Department Care Team Description 04/25/2017 Orders Only [facility] Shalini Blake Paroxysmal atrial [address] fibrillation (HCC) [place] [address] Social [...] 4.67 Specimen Performing Laboratory [place] [address] * LIVER FUNCTION PANEL (04/24/2017) Component Value Ref Range Total Bilirubin 0.7 Bilirubin, Direct 0.1 Albumin 4.1 Alk Phosphatase 50 AST (SGOT) 24 ALT (SGPT) 24 Total Protein Specimen Performing Laboratory [place] [address] in this encounter Visit Diagnoses Diagnosis Paroxysmal atrial fibrillation (HCC) Atrial fibrillation in this encounter
--- OUTSIDE RECORDS SUMMARY | 2017-06-23 08:37 | XMS REPORT | Encounter Summary ---
Author Author [facility] Organization [facility] Address Unknown Phone Unavailable Care Team Providers Care Lawn Care Specialist Name Role Phone PCP Unavailable Reason for Visit * Reason Comments Amiodarone Monitoring due for labs & CXR, letter & reqs sent. Encounter Details Date Type Department Care Team Description 04/19/2017 Documentation [facility] Andrea Asencio, STEVEN Amiodarone Monitoring [address] [facility] (due for labs & CXR, [place] [address] letter & reqs sent.) [phone] Social History Tobacco Use Types Packs/Day Years [...] 4.67 Specimen Performing Laboratory [facility] [address] [address] * LIVER FUNCTION PANEL (04/24/2017) Component Value Ref Range Total Bilirubin 0.7 Bilirubin, Direct 0.1 Albumin 4.1 Alk Phosphatase 50 AST (SGOT) 24 ALT (SGPT) 24 Total Protein Specimen Performing Laboratory [facility] [address] [address] in this encounter Visit Diagnoses Diagnosis Paroxysmal atrial fibrillation (HCC) - Primary Atrial fibrillation in this encounter
--- OUTSIDE RECORDS SUMMARY | 2017-06-23 08:40 | XMS REPORT | Continuity of Care Document ---
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 12/21/2012 ARUNA EGAN MD Ot 427.0 PAROX ATRIAL TACHYCARDIA 12/21/2012 ARUNA EGAN MD Ot 427.31 ATRIAL FIBRILLATION 12/21/2012 ARUNA EGAN MD Ot 429.3 CARDIOMEGALY 12/21/2012 ARUNA EGAN MD Ot 458.29 OTHER IATROGENIC HYPOTENSION 12/21/2012 ARUNA EGAN MD Ot 712.33 CHONDROCALC NOS-FOREARM 12/21/2012 ARUNA EGAN MD Ot 715.90 OSTEOARTHROS NOS-UNSPEC 12/21/2012 ARUNA EGAN MD Ot 998.12 HEMATOMA COMPLIC A PROC [...] ARAGON MD Ot 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 05/22/2014 CURT ARAGON MD Ot 416.8 [...] BERTHA Daniels Ot 427.31 01/14/2015 LUCIANO SALOMON JAMMER OPERATOR Ot 244.9 01/14/2015 LUCIANO SALOMON JAMMER OPERATOR Ot 787.20 03/10/2015 LUCIANO SALOMON JAMMER OPERATOR Ot V76.12 05/06/2015 KALIA DO, JAMES K [...] DIAPHRAGMATIC HERNIA WITHOUT OBSTRUCTION 07/27/2015 LUCIANO SALOMON JAMMER OPERATOR Ot E04.1 10/05/2015 BERTHA DHALIWAL MD Ot Z51.81 ENCOUNTER FOR THERAPEUTIC DRUG LEVEL MON 10/05/2015 BERTHA DHALIWAL MD Ot Z79.899 OTHER STRINGS TEACHER (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 THERAPY 10/08/2015 BERTHA DHALIWAL MD Ot Z51.81 ENCOUNTER FOR THERAPEUTIC DRUG LEVEL MON 10/08/2015 BERTHA DHALIWAL MD Ot Z79.899 OTHER CORRECTION (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 THERAPY 10/22/2015 BERTHA DHALIWAL MD Ot Z51.81 ENCOUNTER FOR THERAPEUTIC DRUG LEVEL MON 10/22/2015 [place], BERTHA Daniels Ot Z79.899 OTHER CORRECTION (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 THERAPY 11/08/2015 [place], FRANCISCO [...] CARTER Saldivar Ot R06.83 SNORING 01/22/2016 [place], CARTER Saldivar Ot G47.36 SLEEP RELATED HYPOVENTILATION IN CONDITI 01/22/2016 [place], CARTER Saldivar Ot R06.83 SNORING 02/26/2016 NOEL ZARAGOZA MANAGER OF INTERNAL Ot M54.9 DORSALGIA, UNSPECIFIED 02/26/2016 NOEL ZARAGOZA MANAGER OF INTERNAL Ot R07.9 CHEST PAIN, UNSPECIFIED 02/26/2016 NOEL ZARAGOZA MANAGER OF INTERNAL Ot R61 GENERALIZED HYPERHIDROSIS 02/26/2016 NOEL ZARAGOZA MANAGER OF INTERNAL Ot M54.9 DORSALGIA, UNSPECIFIED 02/26/2016 NOEL ZARAGOZA MANAGER OF INTERNAL Ot R07.9 CHEST PAIN, UNSPECIFIED 02/26/2016 NOEL ZARAGOZA MANAGER OF INTERNAL Ot R61 GENERALIZED HYPERHIDROSIS 03/07/2016 Ot 611.71 [...] YANG Ot 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 03/07/2016 KYEL YANG Ot 397.0 TRICUSPID VALVE DISEASE 03/07/2016 [...] Ot 427.31 ATRIAL FIBRILLATION 03/07/2016 LUCIANO SALOMON JAMMER OPERATOR Ot 244.9 HYPOTHYROIDISM NOS 03/07/2016 LUCIANO SALOMON JAMMER OPERATOR Ot 787.20 DYSPHAGIA, UNSPECIFIED 03/07/2016 LUCIANO SALOMON JAMMER OPERATOR Ot V76.12 OTH SCREEN MAMMO-MALIGN NEOPLASM OF PERRY 03/07/2016 KYLE YANG Ot E78.2 MIXED HYPERLIPIDEMIA 03/07/2016 KYLE YANG Ot I10 ESSENTIAL (PRIMARY) HYPERTENSION 03/07/2016 KYLE YANG Ot I25.10 ATHSCL HEART DISEASE OF [place] CORONARY 03/07/2016 KYLE YANG Ot I65.23 OCCLUSION AND STENOSIS OF BILATERAL [place] 03/07/2016 CURT ARAGON MD Ot E78.2 MIXED HYPERLIPIDEMIA 03/07/2016 CURT ARAGON MD Ot I10 ESSENTIAL (PRIMARY) HYPERTENSION 03/07/2016 CURT ARAGON MD Ot I25.10 ATHSCL HEART DISEASE OF [place] CORONARY 03/07/2016 [place], CARTER Saldivar Ot M25.511 PAIN IN RIGHT SHOULDER 03/07/2016 CARTER BADILLO MD Ot M54.2 CERVICALGIA 03/07/2016 LUCIANO SALOMON JAMMER OPERATOR Ot E04.1 NONTOXIC SINGLE THYROID NODULE 03/07/2016 [place], MINO Ot R13.10 DYSPHAGIA, UNSPECIFIED 03/07/2016 [place], MINO Ot Z01.818 ENCOUNTER FOR OTHER PREPROCEDURAL EXAMIN 03/07/2016 [place], BERTHA Daniels Ot Z51.81 ENCOUNTER FOR THERAPEUTIC DRUG LEVEL MON 03/07/2016 [place], BERTHA Daniels Ot Z79.899 OTHER STRINGS TEACHER (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 THERAPY 03/07/2016 NOEL ZARAGOZA APRN [...] MAMMOGRAM FOR MALIGNANT NE 03/08/2016 NOEL ZARAGOZA MANAGER OF INTERNAL Ot Z12.31 ENCNTR SCREEN MAMMOGRAM FOR MALIGNANT NE 03/17/2016 NOEL ZARAGOZA MANAGER OF INTERNAL Ot M54.9 DORSALGIA, UNSPECIFIED 03/17/2016 NOEL ZARAGOZA MANAGER OF INTERNAL Ot R07.9 CHEST PAIN, UNSPECIFIED 03/17/2016 NOEL ZARAGOZA MANAGER OF INTERNAL Ot R61 GENERALIZED HYPERHIDROSIS 03/17/2016 NOEL ZARAGOZA MANAGER OF INTERNAL Ot Z12.31 ENCNTR SCREEN MAMMOGRAM FOR MALIGNANT [...] Ot 427.31 ATRIAL FIBRILLATION 06/30/2016 LUCIANO SALOMON JAMMER OPERATOR Ot 244.9 HYPOTHYROIDISM NOS 06/30/2016 LUCIANO SALOMON JAMMER OPERATOR Ot 787.20 DYSPHAGIA, UNSPECIFIED 06/30/2016 LUCIANO SALOMON JAMMER OPERATOR Ot V76.12 OTH SCREEN MAMMO-MALIGN NEOPLASM OF PERRY 06/30/2016 JACQUES QUINTANILLA KYLE Natali Ot E78.2 MIXED HYPERLIPIDEMIA 06/30/2016 JACQUES QUINTANILLA KYLE K Ot I10 ESSENTIAL (PRIMARY) HYPERTENSION 06/30/2016 JACQUES QUINTANILLA KYLE Natali Ot I25.10 ATHSCL HEART DISEASE OF [place] CORONARY 06/30/2016 JACQUES QUINTANILLA KYLE Natali Ot I65.23 OCCLUSION AND STENOSIS OF BILATERAL [place] 06/30/2016 CURT ARAGON MD Ot E78.2 MIXED HYPERLIPIDEMIA 06/30/2016 CURT ARAGON MD Ot I10 ESSENTIAL (PRIMARY) HYPERTENSION 06/30/2016 CURT ARAGON MD Ot I25.10 ATHSCL HEART DISEASE OF [place] CORONARY 06/30/2016 [place], CARTER Saldivar Ot M25.511 PAIN IN RIGHT SHOULDER 06/30/2016 [place], CARTER Saldivar Ot M54.2 CERVICALGIA 06/30/2016 LUCIANO SALOMON JAMMER OPERATOR Ot E04.1 NONTOXIC SINGLE THYROID NODULE 06/30/2016 [place], MINO Ot R13.10 DYSPHAGIA, UNSPECIFIED 06/30/2016 MINO GARCIA MD Ot Z01.818 ENCOUNTER FOR OTHER PREPROCEDURAL EXAMIN 06/30/2016 BERTHA DHALIWAL MD Ot Z51.81 ENCOUNTER FOR THERAPEUTIC DRUG LEVEL MON 06/30/2016 BERTHA DHALIWAL MD Ot Z79.899 OTHER CORRECTION (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 THERAPY 06/30/2016 NOEL ZARAGOZA MANAGER OF INTERNAL Ot M54.9 DORSALGIA, UNSPECIFIED 06/30/2016 NOEL ZARAGOZA MANAGER OF INTERNAL Ot R07.9 CHEST PAIN, UNSPECIFIED 06/30/2016 NOEL ZARAGOZA MANAGER OF INTERNAL Ot R61 GENERALIZED HYPERHIDROSIS 06/30/2016 NIKNOEL MANAGER OF INTERNAL Ot Z12.31 ENCNTR SCREEN MAMMOGRAM FOR MALIGNANT [...] Ot 427.31 ATRIAL FIBRILLATION 06/30/2016 LUCIANO SALOMON JAMMER OPERATOR Ot 244.9 HYPOTHYROIDISM NOS 06/30/2016 LUCIANO SALOMON JAMMER OPERATOR Ot 787.20 DYSPHAGIA, UNSPECIFIED 06/30/2016 LUCIANO SALOMON JAMMER OPERATOR Ot V76.12 OTH SCREEN MAMMO-MALIGN NEOPLASM OF PERRY 06/30/2016 JACQUES QUINTANILLA KYLE K Ot E78.2 MIXED HYPERLIPIDEMIA 06/30/2016 JACQUES QUINTANILLA KYLE K Ot I10 ESSENTIAL (PRIMARY) HYPERTENSION 06/30/2016 JACQUES QUINTANILLA KYLE K Ot I25.10 ATHSCL HEART DISEASE OF [place] CORONARY 06/30/2016 JACQUES QUINTANILLA KYLE Natali Ot I65.23 OCCLUSION AND STENOSIS OF BILATERAL [place] 06/30/2016 [place], CURT Montes De Oca Ot E78.2 MIXED HYPERLIPIDEMIA 06/30/2016 CURT ARAGON MD Ot I10 ESSENTIAL (PRIMARY) HYPERTENSION 06/30/2016 CURT ARAGON MD Ot I25.10 ATHSCL HEART DISEASE OF [place] CORONARY 06/30/2016 [place], CARTER Saldivar Ot M25.511 PAIN IN RIGHT SHOULDER 06/30/2016 [place], CARTER Saldivar Ot M54.2 CERVICALGIA 06/30/2016 SALOMON, LUCIANO M JAMMER OPERATOR Ot E04.1 NONTOXIC SINGLE THYROID NODULE 06/30/2016 [place], MINO Ot R13.10 DYSPHAGIA, UNSPECIFIED 06/30/2016 [place], MINO Ot Z01.818 ENCOUNTER FOR OTHER PREPROCEDURAL EXAMIN 06/30/2016 BERTHA DHALIWAL MD Ot Z51.81 ENCOUNTER FOR THERAPEUTIC DRUG LEVEL MON 06/30/2016 BERTHA DHALIWAL MD Ot Z79.899 OTHER CORRECTION (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 THERAPY 06/30/2016 NOEL ZARAGOZA MANAGER OF INTERNAL Ot M54.9 DORSALGIA, UNSPECIFIED 06/30/2016 NOEL ZARAGOZA MANAGER OF INTERNAL Ot R07.9 CHEST PAIN, UNSPECIFIED 06/30/2016 NOEL ZARAGOZA MANAGER OF INTERNAL Ot R61 GENERALIZED HYPERHIDROSIS 06/30/2016 NOEL ZARAGOZA MANAGER OF INTERNAL Ot Z12.31 ENCNTR SCREEN MAMMOGRAM FOR MALIGNANT [...] MD Ot I25.10 ATHSCL HEART DISEASE OF [place] CORONARY 08/09/2016 CARTER BADILLO MD Ot I51.7 [...] INITIAL 08/20/2016 TAD BOSS Ot Z79.899 OTHER CORRECTION (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 THERAPY 08/20/2016 TAD BOSS Ot Z95.0 PRESENCE OF CARDIAC PACEMAKER 08/21/2016 TAD BOSS Ot T81.4XXA INFECTION FOLLOWING A PROCEDURE, INITIAL 08/22/2016 TAD BOSS Ot I10 ESSENTIAL (PRIMARY) HYPERTENSION 08/22/2016 TAD BOSS Ot L76.31 POSTPROC HEMATOMA OF SKIN, SUBCU FOL A D 08/22/2016 TAD BOSS Ot T81.4XXA INFECTION FOLLOWING A PROCEDURE, INITIAL 08/22/2016 TAD BOSS Ot Z79.899 OTHER CORRECTION (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 THERAPY 08/22/2016 TAD BOSS Ot [...] K Ot 786.50 CHEST PAIN NOS 09/16/2016 KYLE YANG K Ot 272.4 HYPERLIPIDEMIA NEC/NOS 09/16/2016 KYLE YANG K Ot 401.9 HYPERTENSION NOS 09/16/2016 AURA YANGTH K Ot 414.00 CORON ATHEROSCLER NOS TYPE VESSEL, NATIV 09/16/2016 KYLE YANG K Ot 786.50 CHEST PAIN NOS 09/16/2016 [place], BERTHA Daniels Ot 427.31 ATRIAL FIBRILLATION 09/16/2016 LUCIANO SALOMON JAMMER OPERATOR Ot 244.9 HYPOTHYROIDISM NOS 09/16/2016 LUCIANO SALOMON JAMMER OPERATOR Ot 787.20 DYSPHAGIA, UNSPECIFIED 09/16/2016 LUCIANO SALOMON JAMMER OPERATOR Ot V76.12 OTH SCREEN MAMMO-MALIGN NEOPLASM OF PERRY 09/16/2016 KYLE YANG K Ot E78.2 MIXED HYPERLIPIDEMIA 09/16/2016 AURA YANGTH K Ot I10 ESSENTIAL (PRIMARY) HYPERTENSION 09/16/2016 KYLE YANG K Ot I25.10 ATHSCL HEART DISEASE OF [place] CORONARY 09/16/2016 KYLE YANG Ot I65.23 OCCLUSION AND STENOSIS OF BILATERAL [place] 09/16/2016 CURT ARAGON MD Ot E78.2 MIXED HYPERLIPIDEMIA 09/16/2016 CURT ARAGON MD Ot I10 ESSENTIAL (PRIMARY) HYPERTENSION 09/16/2016 CURT ARAGON MD Ot I25.10 ATHSCL HEART DISEASE OF [place] CORONARY 09/16/2016 CARTER BADILLO MD Ot M25.511 [...] 09/16/2016 BERTHA DHALIWAL MD Ot Z79.899 OTHER CORRECTION (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 THERAPY 09/16/2016 NOEL ZARAGOZA MANAGER OF INTERNAL Ot M54.9 DORSALGIA, UNSPECIFIED 09/16/2016 NOEL ZARAGOZA MANAGER OF INTERNAL Ot R07.9 CHEST PAIN, UNSPECIFIED 09/16/2016 NOEL ZARAGOZA MANAGER OF INTERNAL Ot R61 GENERALIZED HYPERHIDROSIS 09/16/2016 NOEL ZARAGOZA MANAGER OF INTERNAL Ot Z12.31 ENCNTR SCREEN MAMMOGRAM FOR MALIGNANT NE 09/16/2016 STAN TUCKERM, SNOW Frias Ot 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 09/16/2016 KYLE YANG Ot 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, 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 09/16/2016 CARTER BADILLO MD Ot E04.2 NONTOXIC MULTINODULAR GOITER 09/16/2016 CARTER BADILLO MD Ot I25.10 ATHSCL HEART DISEASE OF [place] CORONARY 09/16/2016 CARTER BADILLO MD Ot I51.7 [...] 09/19/2016 BERTHA DHALIWAL MD Ot Z79.899 OTHER CORRECTION (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 THERAPY 10/10/2016 BERTHA DHALIWAL MD, Ot J44.9 CHRONIC OBSTRUCTIVE PULMONARY DISEASE, U 10/10/2016 BERTHA DHALIWAL MD, Ot K44.9 DIAPHRAGMATIC HERNIA WITHOUT OBSTRUCTION 10/10/2016 BERTHA DHALIWAL MD Ot Z51.81 ENCOUNTER FOR THERAPEUTIC DRUG LEVEL MON 10/10/2016 BERTHA DHALIWAL MD Ot Z79.899 OTHER STRINGS TEACHER (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 THERAPY 10/28/2016 ANJELICA HUBBARD MD, [...] Ot 427.31 ATRIAL FIBRILLATION 12/23/2016 LUCIANO SALOMON JAMMER OPERATOR Ot 244.9 HYPOTHYROIDISM NOS 12/23/2016 LUCIANO SALOMON JAMMER OPERATOR Ot 787.20 DYSPHAGIA, UNSPECIFIED 12/23/2016 LUCIANO SALOMON JAMMER OPERATOR Ot V76.12 OTH SCREEN MAMMO-MALIGN NEOPLASM OF PERRY 12/23/2016 KYLE YANG Ot E78.2 MIXED HYPERLIPIDEMIA 12/23/2016 KYLE YANG Ot I10 ESSENTIAL (PRIMARY) HYPERTENSION 12/23/2016 KYLE YANG Ot I25.10 ATHSCL HEART DISEASE OF [place] CORONARY 12/23/2016 KYLE YANG Ot I65.23 OCCLUSION AND STENOSIS OF BILATERAL [place] 12/23/2016 CURT ARAGON MD Ot E78.2 MIXED HYPERLIPIDEMIA 12/23/2016 CURT ARAGON MD, Ot I10 ESSENTIAL (PRIMARY) HYPERTENSION 12/23/2016 CURT ARAGON MD Ot I25.10 ATHSCL HEART DISEASE OF [place] CORONARY 12/23/2016 CARTER BADILLO MD Ot M25.511 PAIN IN RIGHT SHOULDER 12/23/2016 CARTER BADILLO MD Ot M54.2 CERVICALGIA 12/23/2016 LUCIANO SALOMON JAMMER OPERATOR Ot E04.1 NONTOXIC SINGLE THYROID NODULE 12/23/2016 MINO GARCIA MD Ot R13.10 DYSPHAGIA, UNSPECIFIED 12/23/2016 MINO GARCIA MD Ot Z01.818 ENCOUNTER FOR OTHER PREPROCEDURAL EXAMIN 12/23/2016 [place], BERTHA Daniels Ot Z51.81 ENCOUNTER FOR THERAPEUTIC DRUG LEVEL MON 12/23/2016 [place], BERTHA Daniesl Ot Z79.899 OTHER CORRECTION (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 THERAPY 12/23/2016 NOEL ZARAGOZA APRN [...] Saldivar Ot I25.10 ATHSCL HEART DISEASE OF [place] CORONARY 12/23/2016 [place], CARTER Saldivar Ot [...] [place], BERTHA Daniels Ot Z79.899 OTHER CORRECTION (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 THERAPY 12/29/2016 MELY METCALF DO [...] F41.9 ANXIETY DISORDER, UNSPECIFIED 03/02/2017 NOEL ZARAGOZA MANAGER OF INTERNAL Ot Z12.31 ENCNTR SCREEN MAMMOGRAM FOR MALIGNANT NE 03/08/2017 NOEL ZARAGOZA MANAGER OF INTERNAL Ot Z12.31 ENCNTR SCREEN MAMMOGRAM FOR MALIGNANT NE 03/15/2017 NOEL ZARAGOZA MANAGER OF INTERNAL Ot Z12.31 ENCNTR SCREEN MAMMOGRAM FOR MALIGNANT NE 03/30/2017 NOEL ZARAGOZA MANAGER OF INTERNAL Ot Z12.31 ENCNTR SCREEN MAMMOGRAM FOR MALIGNANT NE 04/17/2017 NOEL ZARAGOZA MANAGER OF INTERNAL Ot Z12.31 ENCNTR SCREEN MAMMOGRAM FOR MALIGNANT [...] Ot V76.12 OTH SCREEN MAMMO-MALIGN NEOPLASM OF PRERY 04/27/2017 KYLE YANG Ot 272.4 HYPERLIPIDEMIA NEC/NOS [...] Ot 427.31 ATRIAL FIBRILLATION 04/27/2017 LUCIANO SALOMON JAMMER OPERATOR Ot 244.9 HYPOTHYROIDISM NOS 04/27/2017 LUCIANO SALOMON JAMMER OPERATOR Ot 787.20 DYSPHAGIA, UNSPECIFIED 04/27/2017 LUCIANO SALOMON JAMMER OPERATOR Ot V76.12 OTH SCREEN MAMMO-MALIGN NEOPLASM OF PERRY 04/27/2017 KYLE YANG Ot E78.2 MIXED HYPERLIPIDEMIA 04/27/2017 KYLE YANG K Ot I10 ESSENTIAL (PRIMARY) HYPERTENSION 04/27/2017 KYLE YANG Ot I25.10 ATHSCL HEART DISEASE OF [place] CORONARY 04/27/2017 KYLE YANG Ot I65.23 OCCLUSION AND STENOSIS OF BILATERAL [place] 04/27/2017 CURT ARAGON MD Ot E78.2 MIXED HYPERLIPIDEMIA 04/27/2017 CURT ARAGON MD Ot I10 ESSENTIAL (PRIMARY) HYPERTENSION 04/27/2017 CURT ARAGON MD Ot I25.10 ATHSCL HEART DISEASE OF [place] CORONARY 04/27/2017 CARTER BADILLO MD Ot M25.511 [...] 04/27/2017 BERTHA DHALIWAL MD Ot Z79.899 OTHER STRINGS TEACHER (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 THERAPY 04/27/2017 NOEL ZARAGOZA MANAGER OF INTERNAL Ot M54.9 DORSALGIA, UNSPECIFIED 04/27/2017 NOEL ZARAGOZA MANAGER OF INTERNAL Ot R07.9 CHEST PAIN, UNSPECIFIED 04/27/2017 NOEL ZARAGOZA MANAGER OF INTERNAL Ot R61 GENERALIZED HYPERHIDROSIS 04/27/2017 NOEL ZARAGOZA MANAGER OF INTERNAL Ot Z12.31 ENCNTR SCREEN MAMMOGRAM FOR MALIGNANT NE 04/27/2017 STAN DPM, SNOW Frias Ot 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 04/27/2017 KYLE YANG Ot 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, 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 04/27/2017 CARTER BADILLO MD Ot E04.2 NONTOXIC MULTINODULAR GOITER 04/27/2017 CARTER BADILLO MD Ot I25.10 ATHSCL HEART DISEASE OF [place] CORONARY 04/27/2017 CARTER BADILLO MD Ot I51.7 [...] 04/27/2017 BERTHA DHALIWAL MD Ot Z79.899 OTHER STRINGS TEACHER (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 THERAPY 04/27/2017 MELY METCALF DO [...] 04/28/2017 BERTHA DHALIWAL MD Ot Z79.899 OTHER CORRECTION (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 THERAPY 05/22/2017 BERTHA DHALIWAL MD Ot I51.7 CARDIOMEGALY 05/22/2017 BERTHA DHALIWAL MD, Ot K44.9 DIAPHRAGMATIC HERNIA WITHOUT OBSTRUCTION 05/22/2017 BERTHA DHALIWAL MD Ot Z79.899 OTHER CORRECTION (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 THERAPY 06/07/2017 BERTHA DHALIWAL MD Ot I51.7 CARDIOMEGALY 06/07/2017 BERTHA DHALIWAL MD, Ot K44.9 DIAPHRAGMATIC HERNIA WITHOUT OBSTRUCTION 06/07/2017 BERTHA DHALIWAL MD Ot Z79.899 OTHER STRINGS TEACHER (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 THERAPY Procedures Code Description Performed [...] Status Pt. Type Provider Facility Loc./Unit Complaint [id number] 04/27/2017 14:16:00 04/27/2017 23:59:59 CLS Outpatient BERTHA DHALIWAL MD [facility] RAD Z51.81, Z79.899 [id number] 03/09/2017 12:29:00 03/09/2017 23:59:59 CLS Outpatient NOEL ZARAGOZA APRN [facility] RAD SCREENING [id number] 12/28/2016 14:42:00 12/28/2016 23:59:59 CLS Outpatient MELY METCALF DO [facility] RT DEMENTIA F03.90, ANXIETY F41.9,OBESITY E66.9 [id number] 11/07/2016 14:16:00 12/06/2016 16:00:00 DIS Outpatient ANJELICA HUBBARD MD [facility] WOUNDCARE [id number] 09/16/2016 09:52:00 09/16/2016 23:59:59 CLS Outpatient [place], BERTHA Daniels [facility] RAD Z51.81,Z79.899 [id number] 08/21/2016 11:22:00 08/21/2016 11:54:00 DIS Emergency TAD BOSS [facility] ER WOUND CHECK [id number] 08/20/2016 19:20:00 08/20/2016 22:45:00 DIS Emergency TAD BOSS [facility] ER BLEEDING AT SURGICAL SITE [id number] 07/05/2016 09:17:00 07/05/2016 23:59:59 CLS Outpatient CARTER BADILLO MD [facility] RAD ABNORMAL CHEST XRAY, FOLLOW UP THYROID NODULES [id number] 07/05/2016 09:11:00 07/05/2016 23:59:59 CLS Outpatient KYLE YANG [facility] RAD AORTIC ANEURYSM, THORACIC [id number] 06/30/2016 07:34:00 06/30/2016 23:59:59 CLS Outpatient SNOW PIERCE DPM [facility] RAD LIPOMA RIGHT ANKLE [id number] 06/30/2016 10:00:00 06/30/2016 10:00:00 CAN Preadmit NOEL ZARAGOZA APRN [facility] RAD ABNORMAL CHEST XR [id number] 03/07/2016 14:51:00 03/07/2016 23:59:59 CLS Outpatient NOEL ZARAGOZA APRN [facility] RAD SCREENING [id number] 02/25/2016 13:37:00 02/25/2016 23:59:59 CLS Outpatient NOEL ZARAGOZA APRN [facility] CARD CHEST PAIN,BACK PAIN ,DIAPHORESIS [id number] 01/06/2016 20:56:00 01/07/2016 06:35:00 DIS Outpatient CARTER BADILLO MD [facility] SLEEP OBSERVED APNEAS, SNORING,NAYELI,HTN,DAYTIME SLEEPINESS [id number] 11/08/2015 08:47:00 11/08/2015 09:55:00 DIS Emergency FRANCISCO PABLO MD [facility] ER SORE THROAT,BILAT EAR PAIN [id number] 10/02/2015 12:45:00 10/02/2015 23:59:59 CLS Outpatient BERTHA DHALIWAL MD [facility] RAD ENCOUNTER FOR MONITORING AMIODARONE THERAPY [id number] 07/15/2015 10:25:00 07/15/2015 14:10:00 DIS Outpatient MINO GARCIA MD [facility] SDC DYSPHAGIA [id number] 07/13/2015 14:55:00 07/13/2015 23:59:59 CLS Outpatient MINO GARCIA MD [facility] PREOP DYSPHAGIA [id number] 06/30/2015 09:23:00 06/30/2015 23:59:59 CLS Outpatient LUCIANO SALOMON [facility] RAD THYROID NODULES [id number] 06/10/2015 07:33:00 06/10/2015 23:59:59 CLS Outpatient CURT ARAGON MD [facility] CARD CAD,CAROTID ARTERY STENOSIS,HTN,HYPERLIPIDEMIA [id number] 06/09/2015 07:46:00 06/09/2015 23:59:59 CLS Outpatient KYLE YANG [facility] CARD CAD,CAROTID ARTERY STENOSIS,HTN,HYPERLIPIDEMIA [id number] 05/12/2015 12:34:00 05/12/2015 23:59:59 CLS Outpatient CARTER BADILLO MD [facility] RAD NECK AND RIGHT SHOULDER PAIN, [id number] 05/06/2015 16:53:00 05/06/2015 19:22:00 DIS Emergency JAMES MOTTA DO [facility] ER HEADACHE,NAUSEA,WEAKNESS [id number] 02/18/2015 11:16:00 02/18/2015 23:59:59 CLS Outpatient UMMMICHELLEIE Akanksha JAMMER OPERATOR [facility] RAD SCREENING [id number] 12/22/2014 11:08:00 12/22/2014 23:59:59 CLS Outpatient SALOMONLUCIANO JAMMER OPERATOR [facility] RAD HYPOTHYROIDISM [id number] 11/19/2014 06:46:00 11/19/2014 23:59:59 CLS Outpatient BERTHA DHALIWAL MD [facility] RT PAROXYSMAL ATRIAL FIBRILLATION [id number] 10/22/2014 16:19:00 10/22/2014 20:14:00 DIS Emergency [place]ATION, AIDA Ibarra [facility] ER SOA [id number] 05/21/2014 07:00:00 05/22/2014 10:20:00 DIS Outpatient CURT ARAGON MD [facility] CATH ABNORMAL STRESS, CP,HTN, HLP [id number] 05/08/2014 10:24:00 05/08/2014 23:59:59 CLS Outpatient KYLE YANG [facility] CARD CAD,CP,HTN [id number] 05/05/2014 07:44:00 05/05/2014 23:59:59 CLS Outpatient KYLE YANG [facility] CARD CAD,CP,HTN [id number] 02/13/2014 13:07:00 02/13/2014 23:59:59 CLS Outpatient ARUNA EGAN MD [facility] RAD SCREENING [id number] 11/25/2013 09:01:00 11/25/2013 10:21:00 DIS Emergency KALIA DOJAMES K [facility] ER CHEST/UPPER BACK PAIN [id number] 09/16/2013 08:15:00 09/16/2013 23:59:59 CLS Outpatient PJ ALMANZAR MD, I [facility] RAD ABD PAIN [id number] 07/08/2013 16:33:00 07/08/2013 23:59:59 CLS Outpatient CURT ARAGON MD [facility] RAD CAD,CVA [id number] 12/18/2012 11:15:00 12/21/2012 22:00:00 DIS Inpatient ARUNA EGAN MD [facility] CSD CHEST PAIN [id number] 12/10/2012 12:35:00 12/10/2012 23:59:59 CLS Outpatient ARUNA EGAN MD [facility] RAD L BREAST PAIN [id number] 06/22/2017 02:55:00 Document Registration [id number] 11/18/2014 11:44:00 Document Registration [id number] 11/18/2014 11:43:00 Document Registration [id number] 11/18/2014 11:43:00 Document Registration [id number] 11/18/2014 11:43:00 Document Registration [id number] 11/18/2014 11:43:00 Document Registration [id number] 09/24/2012 06:47:00 Document Registration [id number] 05/07/2012 07:04:00 Document Registration [id number] 05/04/2012 08:10:00 Document Registration [id number] 03/13/2012 12:47:00 Document Registration [id number] 12/15/2011 09:11:00 Document Registration [id number] 10/11/2011 12:54:00 Document Registration [id number] 09/14/2011 18:15:00 Document Registration [id number] 09/07/2011 12:10:00 Document Registration [id number] 12/03/2010 08:32:00 Document Registration [id number] 11/23/2010 13:43:00 Document Registration [id number] 06/10/2010 06:19:00 Document Registration [id number] 11/25/2009 07:50:00 Document Registration
--- NOTE | 2017-06-23 08:41 | Diagnostic Imaging Report ---
INDICATION: Chest pain. FINDINGS: The lungs are clear. The heart size is enlarged. There is mild central vascular congestion. No deepthi edema or focal pneumonia. IMPRESSION: Upper limits heart size and vascular caliber. Air trapping and COPD, chronic. No deepthi edema or focal consolidation. No pleural fluid. Dictated by: Dictated on workstation # [id number]
[2017-06-23] MEDS: cefTRIAXone INJECTION 1,000 MG in NS (IVPB) 50 ML IV SCH (08:50)
[2017-06-23] MEDS: AZITHROMYCIN 250 MG TAB (ZITHROMAX) PO SCH (08:50)
[2017-06-23] MEDS: DABIGATRAN 150 MG (PRADAXA) CAPSULE PO SCH ×2 (08:50→20:20)
[2017-06-23] MEDS: DIGOXIN 0.125 MG (LANOXIN) TAB PO SCH (08:50)
[2017-06-23] MEDS: FAMOTIDINE 20 MG (PEPCID) TABLET PO SCH (08:50)
[2017-06-23] MEDS ORDERED: toPIRamate 25 MG (TOPAMAX) TAB PO PRN (09:15)
[2017-06-23] MEDS: HYDROcodone/APAP 5 MG/325 MG (LORTAB) TAB PO PRN ×2 (09:29→14:59)
--- NOTE | 2017-06-23 11:10 | Physical Therapy Evaluation ---
PT Evaluation-General Medical Diagnosis Admission Date Jun 22, 2017 at 03:30 Medical Diagnosis: pneumonia Onset Date: Jun 22, 2017 Therapy Diagnosis Therapy Diagnosis: debility Height/Weight Height (Feet): 5 Height (Inches): 5.00 Weight (Pounds): 180 Weight (Ounces): 0.0 Precautions Precautions/Isolations: Fall Prevention Weight Bear Status Right Lower Extremity: Right Full Weight Bearing Left Lower Extremity: Left Full Weight Bearing Referral Physician: Gary Reason for Referral: Evaluation/Treatment Medical History Pertinent Medical History: Atrial Fib, CAD, COPD, DM, Dementia, Heart Failure, HTN, Hypothroidism Additional Medical History O2 at home Current History ER via EMS with resp distress Reviewed History: Yes Social History Home: Apartment Current Living Status: Alone Entry Into Home: Level Entry Prior/Core FIM Prior Level of Function Functional [place] Measure 0=Not Assessed/NA 4=Minimal Assistance 1=Total Assistance 5=Supervision or Setup 2=Maximal Assistance 6=Modified [place] 3=Moderate Assistance 7=Complete [place] Bed Mobility: 6 Transfers (B,C,W/C) (FIM): 6 Gait: 6 SBQC or FWW or 4WW (patient reports she has all) PT Evaluation-Current Subjective Patient agrees to PT. Pain Numeric Pain Scale: 0-No Pain Location: No Pain Reported Objective Patient Orientation: Normal For Age Problem Solving: Fair Attachments: Oxygen ROM/Strength ROM Lower Extremities bilateral LE WNL Strength Lower Extremities left knee flexion/extension 4/5; hip flexion 4/5; DF/PF 4/5 right knee flexion/extension 4/5; hip flexion 4/5; DF/PF 4/5 Integumentary/Posture Integumentary refer to nursing notes Bowel Incontinence: No Bladder Incontinence: No Posture WNL Neuromuscular (Tone, Coordination, Reflexes) grossly intact Sensory Vision: Functional Hearing: Functional Sensation Right Lower Extremit: Intact Sensation Left Lower Extremity: Intact Transfers Functional [place] Measure 0=Not Assessed/NA 4=Minimal Assistance 1=Total Assistance 5=Supervision or Setup 2=Maximal Assistance 6=Modified [place] 3=Moderate Assistance 7=Complete [place] Transfers (B, C, W/C) (FIM): 6 Scootin Rollin Supine to/from Sit: 6 Sit to/from Stand: 6 Gait Mode of Locomotion: Walk Anticipated Mode of Locomotion: Walk Gait (FIM): 6 Distance (FIM): 3=150 ft Distance: >600' Gait Level of Assist: 6 Gait Assistive Device: FWW Comments/Gait Description fast noah with FWW; increase SOA with ambulation and O2 3L NC Balance Sitting Static: Normal Sitting Dynamic: Normal Standing Static: Normal Standing Dynamic: Normal Assessment/Needs 82 y.o. female, will benefit from short term skilled PT to address functional mobility to ensure safe return to home at maximum LOF. Rehab Potential: Good PT Care Home Goals Care Home Goals PT Electrical Power Station Technician Goals Time Frame: Jun 30, 2017 Transfers (B,C,W/C) (FIM): 6 Gait (FIM): 6 Gait distance (FIM): 3=150 ft Gait Level of Assist: 6 Gait Assistive Device: FWW, Cane Small Base Quad PT Plan Treatment/Plan Treatment Plan: Continue Plan of Care Treatment Plan: Education, Functional Activity Linus, Functional Strength, Gait , Safety, Therapeutic Exercise Treatment Duration: Jun 30, 2017 Frequency: 6 times per week Estimated Hrs Per Day: .25 hour per day Patient and/or Family Agrees t: Yes Safety Risks/Education Patient Education: Gait Training Teaching Recipient: Patient Teaching Methods: Demonstration, Discussion Response to Teaching: Verbalize Understanding, Return Demonstration Discharge Recommendations Therapy D/C Recommendations: Home Independently Time/GCodes Time In: 1045 Time Out: 1100 Total Billed Treatment Time: 15 Total Billed Treatment 1 visit EVMod 15 min G Codes Necessary: HARRY Castanon PT Jun 23, 2017 11:10
[2017-06-23] MEDS: AMIODARONE 200 MG (CORDARONE) TAB PO SCH (11:27)
[2017-06-23 12:00] VITALS: BP 122/52
[2017-06-23] MEDS: BENZONATATE 100 MG (TESSALON) CAPSULE PO PRN ×2 (13:38→18:14)
[2017-06-23] MEDS: KCL 20 MEQ TAB (K-DUR) PO SCH ×2 (13:38→20:21)
[2017-06-23 16:00] VITALS: BP 100/64
[2017-06-23 19:59] VITALS: BP 132/73
[2017-06-23] MEDS: DONEPEZIL 10 MG (ARICEPT) TAB PO SCH (20:20)
[2017-06-23] MEDS: busPIRone 15 MG (BUSPAR) TABLET PO SCH (20:21)
[2017-06-23] MEDS: PANTOPRAZOLE 40 MG (PROTONIX) TAB PO SCH (20:21)
[2017-06-23] MEDS: meTOprolol TARTRATE 25 MG (LOPRESSOR) TABLET PO SCH (20:21)
[2017-06-23] MEDS ORDERED: NON-FORMULARY MEDICATION 1 EA EA (Liothyronine Sodium 5 MCG) PO SCH (21:00)
[2017-06-24] VITALS: BP 135/65
[2017-06-24] MEDS: methylPREDNISolone 125 MG (Solu-MEDROL) VIAL IVP SCH ×5 (00:53→23:19)
[2017-06-24] MEDS: RT-ALBUTEROL/IPRATROPIUM 3 ML (DUONEB) VIAL INH SCH ×7 (00:53→22:59)
[2017-06-24] MEDS: LEVOTHYROXINE 150 MCG (LEVOTHROID) TAB PO SCH (05:50)
[2017-06-24] MEDS: inSUlin (REGULAR) HUMAN 1 UNIT/0.01 ML (CHARGE PER UNIT) SC SCH ×2 (06:15→11:24)
[2017-06-24] MEDS: FAMOTIDINE 20 MG (PEPCID) TABLET PO SCH (07:50)
[2017-06-24] MEDS: cefTRIAXone INJECTION 1,000 MG in NS (IVPB) 50 ML IV SCH (07:50)
[2017-06-24] MEDS: meTOprolol TARTRATE 25 MG (LOPRESSOR) TABLET PO SCH ×2 (07:50→20:20)
[2017-06-24] MEDS: DIGOXIN 0.125 MG (LANOXIN) TAB PO SCH (07:51)
[2017-06-24] MEDS: SERTRALINE 50 MG (ZOLOFT) TABLET PO SCH (07:51)
[2017-06-24] MEDS: AZITHROMYCIN 250 MG TAB (ZITHROMAX) PO SCH (07:51)
[2017-06-24] MEDS: FUROSEMIDE 40 MG (LASIX) TAB PO SCH (07:51)
[2017-06-24] MEDS: DABIGATRAN 150 MG (PRADAXA) CAPSULE PO SCH ×2 (07:51→20:20)
[2017-06-24 08:00] VITALS: BP 128/62
[2017-06-24] MEDS: busPIRone 15 MG (BUSPAR) TABLET PO SCH ×2 (08:05→20:20)
[2017-06-24] MEDS: AMIODARONE 200 MG (CORDARONE) TAB PO SCH (08:05)
[2017-06-24] MEDS: HYDROcodone/APAP 5 MG/325 MG (LORTAB) TAB PO PRN (08:06)
--- NOTE | 2017-06-24 12:16 | Progress Note-Hospitalist ---
Progress Note Progress Notes/Assess & Plan Date Seen 06/24/17 Time Seen by Provider: 11:50 Diagonsis/Assessment & Plan Patient wondering if she is any better and I tried to reassure her as much as possible She reports that her sputum that she is producing has a tinge of blood in it and she is on anticoagulation for chronic atrial fibrillation and she does not feel it's enough to hold that Coughing a lot but doesn't want any antitussives because she takes so many medications per patient Very nervous about going home unsure if she would be able to make it at home so that is concerning because she lives at home alone Maintain on oxygen just at night now since acute illness and pneumonia she has been using it 24 I told her that we would recheck chest x-ray tomorrow morning along with labs and she seemed very pleased with that plan Overall seems very debilitated and very frightened about going home ultimately Her daughter stopped me out in the osorio after I had seen her mother and she reports that she was very concerned about her mother given the fact I was checking a chest x-ray and I told her we would check that in the morning and all was stable. I did tell her that she was scared about going home and living alone and the daughter responded that she had just cleaned her house and it was immaculate and ready for her to go home. I reviewed all meds and labs and patient doesn't have any other concerns. No fever, vital signs stable, pleasant, sitting in chair, chronically ill, debilitated Irregular irregular rhythm, wheezing in the right lower lobe but otherwise diminished all quintanilla but no tachypnea no use of accessory muscles No edema Assessment per Dr. Vega: HYPOXEMIA MILD FLUID OVERLOAD s/p Lasix nl BNP UPPER RESPIRATORY INFECTION ATRIAL FIBRILLATION DIABETES MELLITUS HYPERTENSION DEMENTIA HYPOTHYROID CHRONIC ANTICOAGULATION DUE TO AFIB CHRONIC MIGRAINE HEADACHES Chronic debility DNR Plan: Maintain antibiotics Maintain oxygen Maintain nebulizer treatments Check labs in a.m. Maintain DO NOT RESUSCITATE because prognosis is extremely poor long-term Will address the fact that she is frightened to go home with primary care provider on Monday Will likely need oxygen 24/7 instead of just at night that she has set up at home JUDSON HARRIS DO Jun 24, 2017 12:16
--- NOTE | 2017-06-24 12:35 | Physical Therapy Daily Note ---
PT Daily Note-Current Subjective Pt. states she feels she is doing well. "they turned my O2 down a little" "I usually only use it at night at home but I have been thinking it might be better if I use it during the day too". Agrees to rx. Daughter present and supportive. Pain Numeric Pain Scale: 0-No Pain Mental Status Patient Orientation: Normal For Age Attachments: Oxygen (1L) Transfers Functional [place] Measure 0=Not Assessed/NA 4=Minimal Assistance 1=Total Assistance 5=Supervision or Setup 2=Maximal Assistance 6=Modified [place] 3=Moderate Assistance 7=Complete IndependenceIRFPAI Quality Coding Scale 6 Independent with activity with or without an assistive device 5 Patient requires set up or clean up by helper. Patient completes activity by themselves 4 Supervision or touching assist (CGA). [place] provide cues , steadying assist 3 The helper provides less than half the effort to complete the activity 2 The helper provides more than half the effort to complete the activity 1 Dependent. The helper does all the effort to complete an activity 7 Patient refused to complete or attempt activity 9 The patient did not perform the activity before the current illness or injury 88 Not attempted due to Medical conditions or safety concerns Transfers (B, C, W/C) (FIM): 6 All TRFs Mod I Weight Bearing Right Lower Extremity: Right Full Weight Bearing Left Lower Extremity: Left Full Weight Bearing Gait Training Gait (FIM): 6 Distance (FIM): 3=150 ft (450plus) Gait Level of Assist: 6 Gait Persons Needed: 1 Gait Assistive Device: FWW needed assist for portble O2 only, some education re: safe and proper use of FWW , pt. likely will progress to cane before DC Exercises Seated Therapy Exercises: Ankle pumps, Sit to stand, Long arc quads, Hip flexion Seated Reps: 10 Standing: Hip Abduction, Hamstring curls, Heel/toe raises, Marching Standing Reps: 12 Treatments up in chair with daughter present after rx. Hot tea brought to room as requested , mancuso at hand for lunch order Assessment Current Status: Excellent Progress no dyspnea noted PT Director Business Integration Goals [facility] Goals PT Director Business Integration Goals Time Frame: Jun 30, 2017 Transfers (B,C,W/C) (FIM): 6 Gait (FIM): 6 Gait distance (FIM): 3=150 ft Gait Level of Assist: 6 Gait Assistive Device: FWW, Cane Small Base Quad PT Plan Treatment/Plan Treatment Plan: Continue Plan of Care Treatment Plan: Education, Functional Activity Linus, Functional Strength, Gait , Safety, Therapeutic Exercise Treatment Duration: Jun 30, 2017 Frequency: 6 times per week Estimated Hrs Per Day: .25 hour per day Patient and/or Family Agrees t: Yes Safety Risks/Education Patient Education: Gait Training, Transfer Techniques, Correct Positioning, Safety Issues Teaching Recipient: Patient Teaching Methods: Demonstration, Discussion Response to Teaching: Verbalize Understanding, Return Demonstration, Reinforcement Needed Time/GCodes Time In: 1205 Time Out: 1230 Total Billed Treatment Time: 25 Total Billed Treatment 1,GT13,EX12 G Codes Necessary: BERNABE Bourgeois NATIONAL SALES MANAGER Jun 24, 2017 12:35
[2017-06-24] MEDS: KCL 20 MEQ TAB (K-DUR) PO SCH ×2 (12:50→20:20)
[2017-06-24] MEDS: BENZONATATE 100 MG (TESSALON) CAPSULE PO SCH ×2 (12:50→20:21)
[2017-06-24 16:00] VITALS: BP 146/69
[2017-06-24] MEDS: inSUlin ASPART (NovoLOG) 1 UNIT/0.01 ML (CHARGE PER UNIT) SC SCH ×2 (16:10→21:07)
[2017-06-24] MEDS: PANTOPRAZOLE 40 MG (PROTONIX) TAB PO SCH (20:20)
[2017-06-24] MEDS: DONEPEZIL 10 MG (ARICEPT) TAB PO SCH (20:20)
[2017-06-24] MEDS: ACETAMINOPHEN 500 MG TAB (TYLENOL) PO PRN (20:23)
[2017-06-25] VITALS: BP 112/58
[2017-06-25] MEDS: RT-ALBUTEROL/IPRATROPIUM 3 ML (DUONEB) VIAL INH SCH ×6 (02:37→21:12)
[2017-06-25] MEDS: methylPREDNISolone 125 MG (Solu-MEDROL) VIAL IVP SCH ×4 (05:43→23:32)
[2017-06-25] MEDS: LEVOTHYROXINE 150 MCG (LEVOTHROID) TAB PO SCH (05:43)
[2017-06-25] MEDS: inSUlin ASPART (NovoLOG) 1 UNIT/0.01 ML (CHARGE PER UNIT) SC SCH ×4 (06:04→20:20)
[2017-06-25 06:17] LABS: BASOPHILS % (AUTO) 0 % (0-10); EOSINOPHILS % (AUTO) 1 % (0-10); HEMATOCRIT 36 % (35-52); HEMOGLOBIN 11.9 G/DL (11.5-16.0); LYMPHOCYTES # (AUTO) 0.5 X 10^3 (1.0-4.0); LYMPHOCYTES % (AUTO) 5 % (12-44); MEAN CORPUSCULAR HEMOGLOBIN 30 PG (25-34); MEAN CORPUSCULAR HGB CONC 33 G/DL (32-36); MEAN CORPUSCULAR VOLUME 90 FL (80-99); MEAN PLATELET VOLUME 10.4 FL (7.4-10.4); MONOCYTES # (AUTO) 0.5 X 10^3 (0.0-1.0); MONOCYTES % (AUTO) 6 % (0-12); NEUTROPHILS # (AUTO) 7.3 X 10^3 (1.8-7.8); NEUTROPHILS % (AUTO) 89 % (42-75); PLATELET COUNT 155 10^3/uL (130-400); RED BLOOD COUNT 4.04 10^6/uL (4.35-5.85); RED CELL DISTRIBUTION WIDTH 14.5 % (10.0-14.5); WHITE BLOOD COUNT 8.3 10^3/uL (4.3-11.0)
[2017-06-25 06:47] LABS: ALBUMIN 3.4 GM/DL (3.2-4.5); BILIRUBIN,TOTAL 0.5 MG/DL (0.1-1.0); CALCIUM 8.7 MG/DL (8.5-10.1); CREATININE SERUM 1.05 MG/DL (0.60-1.30); POTASSIUM 4.4 MMOL/L (3.6-5.0); TOTAL PROTEIN 6.1 GM/DL (6.4-8.2)
[2017-06-25 08:00] VITALS: BP 135/70
[2017-06-25] MEDS: AZITHROMYCIN 250 MG TAB (ZITHROMAX) PO SCH (08:14)
[2017-06-25] MEDS: DIGOXIN 0.125 MG (LANOXIN) TAB PO SCH (08:14)
[2017-06-25] MEDS: cefTRIAXone INJECTION 1,000 MG in NS (IVPB) 50 ML IV SCH (08:14)
[2017-06-25] MEDS: meTOprolol TARTRATE 25 MG (LOPRESSOR) TABLET PO SCH ×2 (08:15→19:49)
[2017-06-25] MEDS: FAMOTIDINE 20 MG (PEPCID) TABLET PO SCH (08:15)
[2017-06-25] MEDS: FUROSEMIDE 40 MG (LASIX) TAB PO SCH (08:15)
[2017-06-25] MEDS: DABIGATRAN 150 MG (PRADAXA) CAPSULE PO SCH ×2 (08:15→19:49)
[2017-06-25] MEDS: AMIODARONE 200 MG (CORDARONE) TAB PO SCH (08:15)
[2017-06-25] MEDS: busPIRone 15 MG (BUSPAR) TABLET PO SCH ×2 (08:15→19:56)
[2017-06-25] MEDS: HYDROcodone/APAP 5 MG/325 MG (LORTAB) TAB PO PRN (08:15)
[2017-06-25] MEDS: BENZONATATE 100 MG (TESSALON) CAPSULE PO SCH ×3 (08:15→19:49)
[2017-06-25] MEDS: SERTRALINE 50 MG (ZOLOFT) TABLET PO SCH (08:15)
[2017-06-25 10:55] VITALS: BP 135/70
--- NOTE | 2017-06-25 11:16 | Diagnostic Imaging Report ---
INDICATION: Shortness of breath and wheezing. PA and lateral views of the chest were obtained. Comparison made with prior examination from 06/23/2017. FINDINGS: The heart size is normal. Lungs are clear. There is no pleural effusion or pneumothorax. The mediastinum is unremarkable. Pacemaker overlies left hemithorax. IMPRESSION: No acute cardiopulmonary abnormality. Dictated by: Dictated on workstation # [id number]
--- NOTE | 2017-06-25 11:42 | Progress Note-Hospitalist ---
Progress Note Progress Notes/Assess & Plan Date Seen 06/25/17 Time Seen by Provider: 10:45 Diagonsis/Assessment & Plan CXR reviewed and that appears much improved overall Having loose stools so I have ordered probiotic Labs reviewed and all appears stable Pt is very nervous and repeats everything that I tell her so she can tell her daughter. Pt appears very declined overall but improved from yesterday Updated patient on all of the xray results and rest of clinical data. No fever, vital signs stable, pleasant, sitting up in bed, chronically ill, debilitated Irregular irregular rhythm, wheezing in the right lower lobe but otherwise diminished all quintanilla but no tachypnea no use of accessory muscles No edema Assessment per Dr. 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 Maintain DO NOT RESUSCITATE because prognosis is extremely poor long-term Will address the fact that she is frightened to go home with primary care provider on Monday Will likely need oxygen 24/7 instead of just at night that she has set up at home Lactinex JUDSON HARRIS DO Jun 25, 2017 11:42
[2017-06-25] MEDS: KCL 20 MEQ TAB (K-DUR) PO SCH ×2 (12:41→19:50)
[2017-06-25] MEDS: ACETAMINOPHEN 500 MG TAB (TYLENOL) PO PRN (15:53)
[2017-06-25 16:00] VITALS: BP 179/75
[2017-06-25] MEDS: LACTOBACILLUS Acidoph/Bulgar (LACTINEX/FLORANEX) TAB PO SCH (16:19)
[2017-06-25] MEDS: DONEPEZIL 10 MG (ARICEPT) TAB PO SCH (19:49)
[2017-06-25] MEDS: PANTOPRAZOLE 40 MG (PROTONIX) TAB PO SCH (19:49)
[2017-06-26 00:42] VITALS: BP 125/67
[2017-06-26] MEDS: ALPRAZolam 0.25 MG (XANAX) TAB PO PRN ×2 (02:58→20:02)
[2017-06-26] MEDS: RT-ALBUTEROL/IPRATROPIUM 3 ML (DUONEB) VIAL INH SCH ×2 (03:53→19:26)
[2017-06-26] MEDS: LACTOBACILLUS Acidoph/Bulgar (LACTINEX/FLORANEX) TAB PO SCH ×3 (05:46→17:05)
[2017-06-26] MEDS: methylPREDNISolone 125 MG (Solu-MEDROL) VIAL IVP SCH ×4 (05:46→23:58)
[2017-06-26] MEDS: LEVOTHYROXINE 150 MCG (LEVOTHROID) TAB PO SCH (05:47)
[2017-06-26] MEDS: inSUlin ASPART (NovoLOG) 1 UNIT/0.01 ML (CHARGE PER UNIT) SC SCH ×4 (06:13→20:49)
[2017-06-26 07:58] VITALS: BP 141/85
[2017-06-26] MEDS: DIGOXIN 0.125 MG (LANOXIN) TAB PO SCH (08:57)
[2017-06-26] MEDS: AZITHROMYCIN 250 MG TAB (ZITHROMAX) PO SCH (08:57)
[2017-06-26] MEDS: FUROSEMIDE 40 MG (LASIX) TAB PO SCH (08:57)
[2017-06-26] MEDS: FAMOTIDINE 20 MG (PEPCID) TABLET PO SCH (08:57)
[2017-06-26] MEDS: SERTRALINE 50 MG (ZOLOFT) TABLET PO SCH (08:58)
[2017-06-26] MEDS: AMIODARONE 200 MG (CORDARONE) TAB PO SCH (08:58)
[2017-06-26] MEDS: busPIRone 15 MG (BUSPAR) TABLET PO SCH ×2 (08:59→20:02)
[2017-06-26] MEDS: cefTRIAXone INJECTION 1,000 MG in NS (IVPB) 50 ML IV SCH (08:59)
[2017-06-26] MEDS: BENZONATATE 100 MG (TESSALON) CAPSULE PO SCH ×3 (08:59→20:02)
[2017-06-26] MEDS: meTOprolol TARTRATE 25 MG (LOPRESSOR) TABLET PO SCH ×2 (08:59→20:02)
[2017-06-26] MEDS: DABIGATRAN 150 MG (PRADAXA) CAPSULE PO SCH ×2 (08:59→20:02)
--- NOTE | 2017-06-26 09:36 | Progress Note (SOAP) ---
Subjective Date Seen by Provider: Jun 26, 2017 Time Seen by Provider: 08:50 Subjective/Events-last exam PT REPORTS THAT SHE IS JUST FEELING TOO FATIGUED AND COUGHING TOO MUCH TO SAFELY GO HOME. SHE IS WONDERING ABOUT SWING BED. I HAVE INFORMED HER THAT IF SHE DOES NOT QUALIFY FOR SWING BED, WE NEED TO CONSIDER THE POSSIBILITY OF HER GOING TO A [facility]P AND SHE HAS STATED THAT SHE WOULD GO TO [facility] IF NEEDED. Review of Systems General: Fatigue, Malaise, Appetite (DECREASED) HEENT: No Head Aches Pulmonary: Dyspnea, Cough Cardiovascular: No: Chest Pain Gastrointestinal: Diarrhea (ALTERNATING WITH CONSTIPATION), No: Nausea, Abdominal Pain Neurological: Weakness Objective Exam Vital Signs Date Time Temp Pulse Resp B/P (MAP) Pulse Ox O2 Delivery O2 Flow Rate FiO2 06/26/17 07:58 96.3 96 24 141/85 (103) 97 Nasal Cannula 1.00 06/26/17 03:53 95 Nasal Cannula 1.00 06/26/17 00:42 98.4 81 18 125/67 (86) 97 Nasal Cannula 1.00 06/25/17 21:12 98 Nasal Cannula 1.00 06/25/17 20:00 Nasal Cannula 1.00 06/25/17 16:00 98.4 86 18 179/75 (109) 98 Nasal Cannula 1.00 06/25/17 15:36 94 Nasal Cannula 1.00 06/25/17 11:24 95 Nasal Cannula 1.00 06/25/17 10:55 86 95 24 I & O 06/26/17 07:00 Intake Total 1550 ml Output Total 1150 ml Balance 400 ml Capillary Refill : Less Than 3 Seconds General Appearance: No Apparent Distress, WD/WN HEENT: PERRL/EOMI, Pharynx Normal Neck: Full Range of Motion, Supple Respiratory: Chest Non Tender, Decreased Breath Sounds (IN BASES) Cardiovascular: Regular Rate, Rhythm Gastrointestinal: normal bowel sounds, non tender, soft Extremity: Normal Capillary Refill, No Pedal Edema Neurologic/Psychiatric: Alert, Other (ANXIOUS) Skin: Warm/Dry Lymphatic: No Adenopathy Results Lab Laboratory Tests 06/25/17 12:18: Glucometer 169H 06/25/17 16:11: Glucometer 186H 06/25/17 20:15: Glucometer 202H 06/26/17 05:42: Glucometer 164H Microbiology 06/22/17 Blood Culture - Preliminary, Resulted No growth 06/22/17 Influenza Types A,B Antigen ([place]) - Final, Complete Assessment/Plan Assessment/Plan Assess & Plan/Chief Complaint HYPOXEMIA MILD FLUID OVERLOAD UPPER RESPIRATORY INFECTION ATRIAL FIBRILLATION DIABETES MELLITUS HYPERTENSION DEMENTIA HYPOTHYROID CHRONIC ANTICOAGULATION DUE TO AFIB CHRONIC MIGRAINE HEADACHES HYPOXEMIA AND MILD FLUID OVERLOAD AND UPPER RESPIRATORY INFECTION - PT ON PNEUMONIA PROTOCOL, STARTED MUCINEX AND ADVAIR, CONTINUE WITH MAT PROTOCOL, OXYGEN, BREATHING TREATMENTS, AND LASIX, AND MONITOR I/O AND DAILY WEIGHTS. IMPROVED - WOULD LIKE TO [facility] - PT WANTS TO HAVE A SWING BED EVAL ATRIAL FIBRILLATION - RESTART PRADAXA, AND DIGOXIN RESTARTED THROUGH THE EMERGENCY DEPARTMENT. DIABETES MELLITUS - DIET CONTROLLED -HOWEVER DUE TO ELEVATION OF GLUCOSE FROM STEROIDS HAS CAUSED PT'S FSBS TO BE ELEVATED. HYPERTENSION - CONTROLLED - ONLY RESTART TOPROL AT THIS TIME, SHE IMPROVES FROM A HEALTH STANDPOINT, WE MAY NEED TO RESTART HER OTHER ANTIHYPERTENSIVE MEDICATIONS MILD DEMENTIA - CHRONIC - CONTINUE WITH SUPPORTIVE CARE. HYPOTHYROID - RESUMED HOME MEDICATION. CHRONIC ANTICOAGULATION DUE TO AFIB - RESTARTED PRADAXA, DIGOXIN, AMIODARONE, STOP TELEMETRY - HER AFIB IS CHRONIC AND STABLE CHRONIC MIGRAINE HEADACHES - RESTART TOPAMAX. GI PROPHYLAXIS WITH PEPCID IV BID DVT PROPHYLAXIS WITH PRADAXA AND SCD'S. Clinical Quality Measures DVT/VTE Risk/Contraindication: Risk Factor Score Per Nursin RFS Level Per Nursing on Admit: 3=High Contraindications-Pharm: Other *list below* Other: PT ON PRADAXA, WILL THEREFORE, NOT START LOVENOX DUE TO INCREASED BLEED RISK CARTER BADILLO MD Jun 26, 2017 09:35
--- NOTE | 2017-06-26 10:30 | Physical Therapy Progress Note ---
Therapy Progress Note Patient declined PT this a.m. due to wanting to eat breakfast, shower and then she will work with PT. 1 ref ([id number]) HARRY KRUEGER PT Jun 26, 2017 10:30
[2017-06-26] MEDS: HYDROcodone/APAP 5 MG/325 MG (LORTAB) TAB PO PRN (11:32)
--- NOTE | 2017-06-26 12:02 | Physical Therapy Daily Note ---
PT Daily Note-Current Subjective Patient agrees to PT. She reports, "I am not completely well so I'm not going home." Pain Numeric Pain Scale: 0-No Pain Location: No Pain Reported Mental Status Patient Orientation: Normal For Age Attachments: Oxygen (1-2L NC) Transfers Functional [place] Measure 0=Not Assessed/NA 4=Minimal Assistance 1=Total Assistance 5=Supervision or Setup 2=Maximal Assistance 6=Modified [place] 3=Moderate Assistance 7=Complete IndependenceIRFPAI Quality Coding Scale 6 Independent with activity with or without an assistive device 5 Patient requires set up or clean up by helper. Patient completes activity by themselves 4 Supervision or touching assist (CGA). [place] provide cues , steadying assist 3 The helper provides less than half the effort to complete the activity 2 The helper provides more than half the effort to complete the activity 1 Dependent. The helper does all the effort to complete an activity 7 Patient refused to complete or attempt activity 9 The patient did not perform the activity before the current illness or injury 88 Not attempted due to Medical conditions or safety concerns Transfers (B, C, W/C) (FIM): 6 Scootin Supine to/from Sit: 6 Sit to/from Stand: 6 Patient donns socks (grippy) independently and is up ad naty in room with SBQC Weight Bearing Right Lower Extremity: Right Full Weight Bearing Left Lower Extremity: Left Full Weight Bearing Gait Training Gait (FIM): 6 Distance (FIM): 3=150 ft Distance: 675' Gait Level of Assist: 6 Gait Assistive Device: FWW fast, steady gait sequence with FWW/patient educated to slow noah to decrease SOA. Assessment Patient is currently at [facility] with all gross motor skills. Patient is up in recliner with needs met. SW coordinator notified of therapy results. PT Custodial Goals Custodial Goals PT Satellite Communications Engineer Goals Time Frame: Jun 30, 2017 Transfers (B,C,W/C) (FIM): 6 Gait (FIM): 6 Gait distance (FIM): 3=150 ft Gait Level of Assist: 6 Gait Assistive Device: FWW, Cane Small Base Quad PT Plan Treatment/Plan Treatment Plan: Continue Plan of Care Treatment Plan: Education, Functional Activity Linus, Functional Strength, Gait , Safety, Therapeutic Exercise Treatment Duration: Jun 30, 2017 Frequency: 6 times per week Estimated Hrs Per Day: .25 hour per day Patient and/or Family Agrees t: Yes Safety Risks/Education Patient Education: Gait Training Teaching Recipient: Patient Teaching Methods: Demonstration, Discussion Response to Teaching: Verbalize Understanding, Return Demonstration Discharge Recommendations Therapy D/C Recommendations: Home Independently, Physical Therapy Home Care Time/GCodes Time In: 1140 Time Out: 1157 Total Billed Treatment Time: 17 Total Billed Treatment 1 visit FA 17 min HARRY KRUEGER PT Jun 26, 2017 12:02
[2017-06-26] MEDS: KCL 20 MEQ TAB (K-DUR) PO SCH ×2 (12:39→20:07)
[2017-06-26 15:25] VITALS: BP 139/76
[2017-06-26] MEDS: PANTOPRAZOLE 40 MG (PROTONIX) TAB PO SCH (20:02)
[2017-06-26] MEDS: DONEPEZIL 10 MG (ARICEPT) TAB PO SCH (20:02)
[2017-06-27] VITALS: BP 143/76
[2017-06-27] MEDS: LACTOBACILLUS Acidoph/Bulgar (LACTINEX/FLORANEX) TAB PO SCH ×2 (05:39→12:00)
[2017-06-27] MEDS: methylPREDNISolone 125 MG (Solu-MEDROL) VIAL IVP SCH ×2 (05:39→12:01)
[2017-06-27] MEDS: LEVOTHYROXINE 150 MCG (LEVOTHROID) TAB PO SCH (05:39)
[2017-06-27] MEDS: inSUlin ASPART (NovoLOG) 1 UNIT/0.01 ML (CHARGE PER UNIT) SC SCH ×2 (05:41→12:02)
[2017-06-27] MEDS: RT-ALBUTEROL/IPRATROPIUM 3 ML (DUONEB) VIAL INH SCH (07:16)
[2017-06-27 08:00] VITALS: BP 150/92
[2017-06-27] MEDS ORDERED: ALPR0.254 PO (09:03)
[2017-06-27] MEDS ORDERED: ALBU2.5V4 INH (09:03)
[2017-06-27] MEDS ORDERED: ACHD5005 PO (09:03)
[2017-06-27] MEDS ORDERED: IPRA3AMP INH (09:03)
[2017-06-27] MEDS ORDERED: CEFD300C3 PO (09:03)
[2017-06-27] MEDS ORDERED: FLUT12AE4 IH (09:04)
--- NOTE | 2017-06-27 09:06 | Discharge Inst-Skilled Nursing ---
Discharge Inst-Skilled NF Patient Instructions Patient Problems: HYPOXEMIA MILD FLUID OVERLOAD UPPER RESPIRATORY INFECTION ATRIAL FIBRILLATION DIABETES MELLITUS HYPERTENSION DEMENTIA HYPOTHYROID CHRONIC ANTICOAGULATION DUE TO AFIB CHRONIC MIGRAINE HEADACHES Consult/Follow Up/Orders Follow Up Appt.: 1 WK WITH [facility] Skilled NF Admit to: [facility] Certification (SNF) I certify that SNF services are required to be given on an inpatient basis because of the above named patient's need for mcc care on a continuing basis for the conditions(s) for which he/she was receiving inpatient hospital services prior to his/her transfer to the [facility]. Nursing Home Facility Order: Nursing Services, E D Tech-Evaluate & Treat, Physical Therapy-Evaluate & Treat Discharge Diet: ADA Diet New & Resume Previous Orders New & Resume Previous Orders PT AND OT EVAL AND TREAT FSBS BID CALL PHYSICIAN IF FSBS IS AT OR ABOVE 300 OR AT OR BELOW 70 Carter Vega Jun 27, 2017 09:04 Medication List: Active Scripts Active Advair Hfa 115-21 Mcg Inhaler (Fluticasone/Salmeterol) 12 Gm Hfa.aer.ad 1 Puff IH BID Cefdinir 300 Mg Capsule 300 Mg PO BID Albuterol Sulfate 2.5 Mg/3 Ml Vial.neb 2.5 Mg INH RTQ2H PRN Iprat-Albut 0.5-3(2.5) mg/3 ml (Ipratropium/Albuterol Sulfate) 3 Ml Ampul.neb 3 Ml INH RTBID Hydrocodone/Acetaminophen 5/325mg Tablet (Acetaminophen/Hydrocodone Bitart) 1 Tab Tab 1-2 Tab PO Q6H PRN Alprazolam 0.25 Mg Tablet 0.25 Mg PO BID PRN Reported Levothyroxine Sodium 125 Mcg Tablet 125 Mcg PO DAILY LAST FILLED #90 87-17 Tramadol HCl 50 Mg Tablet 50 Mg PO TID PRN Upatoi 3 1,000 mg Softgel (Upatoi-3 Fatty Acids/Fish Oil) 1 Each Capsule 1,000 Mg PO BID Probiotic (Lactobacillus Combination No.4) 1 Each Capsule 1 Cap PO DAILY Vitamin D3 (Cholecalciferol (Vitamin D3)) 5,000 Unit Capsule 5,000 Unit PO DAILY Benzonatate 200 Mg Capsule 200 Mg PO TID PRN FILLED #15 CAPSULES 1-2-18 Digoxin 125 Mcg Tablet 125 Mcg PO SUMOWEFR Donepezil HCl 10 Mg Tablet 10 Mg PO HS Sertraline HCl 50 Mg Tablet 50 Mg PO DAILY Losartan Potassium 100 Mg Tablet 100 Mg PO 1230 Potassium Chloride 20 Meq Tab.er.prt 20 Meq PO 1230,2130 Furosemide 40 Mg Tablet 40 Mg PO DAILY Pradaxa (Dabigatran Etexilate Mesylate) 150 Mg Capsule 150 Mg PO BID Amlodipine Besylate 5 Mg Tablet 5 Mg PO DAILY Clobetasol Propionate 15 Gm Oint...g. TOP BID PRN Dexilant (Dexlansoprazole) 60 Mg Cap.dr.bp 60 Mg PO DAILY Pantoprazole Sodium 40 Mg Tablet.dr 40 Mg PO HS Cyanocobalamin Injection (Cyanocobalamin) 1,000 Mcg/Ml Inj 1,000 Mcg INJ EVERY OTHER MONDAY Meloxicam 15 Mg Tablet 15 Mg PO DAILY Doxycycline Hyclate 100 Mg Capsule 100 Mg PO BID 10 Days 10 DAY SUPPLY FILLED 06-20-17 Topamax (Topiramate) 25 Mg Tablet 25 Mg PO BID PRN LAST FILLED #60 02-22-17 Zofran Odt (Ondansetron) 4 Mg Tab.rapdis 4 Mg PO TID PRN Metoprolol Tartrate 50 Mg Tablet 25 Mg PO BID TAKES 1/2 (50MG) TABLET Buspirone HCl 15 Mg Tablet 15 Mg PO BID Liothyronine Sodium 5 Mcg Tablet 5 Mcg PO BID Amiodarone HCl 200 Mg Tablet 100 Mg PO DAILY TAKES 1/2 (200MG) TABLET Lab results: Laboratory Tests Test 06/26/17 10:42 06/26/17 15:29 06/26/17 20:45 06/27/17 05:40 Range/Units Glucometer 162 H 151 H 213 H 191 H 70-110 MG/DL My orders: Orders - CARTER VEGA MD Social Service (06/26/17 09:35) Request For Swb Evaluation (06/26/17 09:35) Albuterol/Ipra Inhalation Soln (Duoneb I (06/26/17 21:00) Mat Protocol-Rt Rfs (06/26/17 10:18) Patient Visit (06/26/17 ) Functional Activities, Ea 15 (06/26/17 ) Attending D/C Order-Pending (06/27/17 08:59) CARTER VEGA MD Jun 27, 2017 09:06
--- NOTE | 2017-06-27 09:07 | Discharge Summary ---
Diagnosis/Chief Complaint Date of Admission Jun 22, 2017 at 03:30 Date of Discharge Discharge Date: Jun 27, 2017 Discharge Time: 14:00 Admission Diagnosis Admission Diagnosis HYPOXEMIA MILD FLUID OVERLOAD UPPER RESPIRATORY INFECTION ATRIAL FIBRILLATION DIABETES MELLITUS HYPERTENSION DEMENTIA HYPOTHYROID CHRONIC ANTICOAGULATION DUE TO AFIB CHRONIC MIGRAINE HEADACHES Discharge Diagnosis HYPOXEMIA MILD FLUID OVERLOAD UPPER RESPIRATORY INFECTION ATRIAL FIBRILLATION DIABETES MELLITUS HYPERTENSION DEMENTIA HYPOTHYROID CHRONIC ANTICOAGULATION DUE TO AFIB CHRONIC MIGRAINE HEADACHES Reason Hospital Visit PT IS AN 82 Y/O FEMALE WHO IS KNOWN TO ME FROM CLINIC. SHE WAS IN CLINIC EARLY THIS WEEK WITH COMPLAINT OF COLD SYMPTOMS. SHE WAS TREATED AND REPORTS THAT SHE HAD NOT REALLY BEEN FEELING ANY BETTER, AND THEN LAST NIGHT WHEN SHE HAD ACUTE WORSENING OF SYMPTOMS, WORSENING SHORTNESS OF BREATH, AND PRESENTED TO THE EMERGENCY DEPARTMENT WHERE SHE WAS FOUND TO BE ACUTELY HYPOXIC. PER ER PHYSICIAN REPORT, SHE HAD AN OXYGEN SATURATION LESS THAN 88%. SHE WAS FOUND TO HAVE SOME FLUID OVERLOAD AND POSSIBLE PNEUMONIA ON CHEST XRAY AND WAS THUS ADMITTED FOR ANTIBIOTICS, DIURESIS, SUPPORTIVE CARE, MONITORING OF CHEST XRAY, AND FURTHER WORK UP NECESSARY. Discharge Summary Discharge Physical Examination Allergies: Coded Allergies: codeine (Verified Allergy, Unknown, 09/09/08) morphine (Verified Allergy, Unknown, 09/09/08) Vitals & I&Os Vital Signs Date Time Temp Pulse Resp B/P (MAP) Pulse Ox O2 Delivery O2 Flow Rate FiO2 06/27/17 07:17 96 Nasal Cannula 1.00 06/27/17 00:00 98.4 81 19 143/76 (98) 06/26/17 10:06 24 General Appearance: Alert, Oriented X3, Cooperative HEENT: Atraumatic, PERRLA Respiratory: Other (DECREASED AIR MOVEMENT AT BASES, FAINT WHEEZING) Cardiovascular: Other (IRREGULARLY IRREGULAR) Abdominal: Normal Bowel Sounds, Soft, No Tenderness Extremities: No Clubbing, No Cyanosis Skin: No Breakdown Neuro: Strength at 5/5 X4 Ext, Cranial Nerves 3-12 NL Psych/Mental Status: Mental Status NL, Mood NL Hospital Course HYPOXEMIA MILD FLUID OVERLOAD UPPER RESPIRATORY INFECTION ATRIAL FIBRILLATION DIABETES MELLITUS HYPERTENSION DEMENTIA HYPOTHYROID CHRONIC ANTICOAGULATION DUE TO AFIB CHRONIC MIGRAINE HEADACHES HYPOXEMIA AND MILD FLUID OVERLOAD AND UPPER RESPIRATORY INFECTION - PT ON PNEUMONIA PROTOCOL, STARTED MUCINEX AND ADVAIR, CONTINUE WITH MAT PROTOCOL, OXYGEN, BREATHING TREATMENTS, AND LASIX, AND MONITOR I/O AND DAILY WEIGHTS. IMPROVED - WOULD LIKE TO DC PT TO [facility] - PT WANTS TO HAVE A SWING BED EVAL ATRIAL FIBRILLATION - RESTART PRADAXA, AND DIGOXIN RESTARTED THROUGH THE EMERGENCY DEPARTMENT. DIABETES MELLITUS - DIET CONTROLLED -HOWEVER DUE TO ELEVATION OF GLUCOSE FROM STEROIDS HAS CAUSED PT'S FSBS TO BE ELEVATED. HYPERTENSION - CONTROLLED - RESUME HOME MEDICATIONS ON DISCHARGE MILD DEMENTIA - CHRONIC - CONTINUE WITH SUPPORTIVE CARE. HYPOTHYROID - RESUMED HOME MEDICATION. CHRONIC ANTICOAGULATION DUE TO AFIB - RESTARTED PRADAXA, DIGOXIN, AMIODARONE CHRONIC MIGRAINE HEADACHES - RESTARTED PRN TOPAMAX. PT TO BE [facility]CHARGED TO [facility] TODAY FOR SKILLED REHAB, NURSING MONITORING AND HOPEFULLY WILL BE ABLE TO GO HOME IN THE NEXT 2-3 WEEKS Pending Labs Laboratory Tests 06/27/17 05:40: Glucometer 191 Discharge Condition at discharge IMPROVED Instructions to patient/family Please see electronic discharge instructions given to patient. Discharge Medications Reviewed and agree with Discharge Medication list on patient's Discharge Instruction sheet Clinical Quality Measures DVT/VTE Risk/Contraindication: Risk Factor Score Per Nursin RFS Level Per Nursing on Admit: 3=High Contraindications-Pharm: Other *list below* Other: PT ON PRADAXA, WILL THEREFORE, NOT START LOVENOX DUE TO INCREASED BLEED RISK CARTER BADILLO MD Jun 27, 2017 09:07
[2017-06-27] MEDS: SERTRALINE 50 MG (ZOLOFT) TABLET PO SCH (09:30)
[2017-06-27] MEDS: DIGOXIN 0.125 MG (LANOXIN) TAB PO SCH (09:30)
[2017-06-27] MEDS: meTOprolol TARTRATE 25 MG (LOPRESSOR) TABLET PO SCH (09:30)
[2017-06-27] MEDS: BENZONATATE 100 MG (TESSALON) CAPSULE PO SCH ×2 (09:30→12:01)
[2017-06-27] MEDS: FUROSEMIDE 40 MG (LASIX) TAB PO SCH (09:30)
[2017-06-27] MEDS: FAMOTIDINE 20 MG (PEPCID) TABLET PO SCH (09:31)
[2017-06-27] MEDS: DABIGATRAN 150 MG (PRADAXA) CAPSULE PO SCH (09:31)
[2017-06-27] MEDS: AMIODARONE 200 MG (CORDARONE) TAB PO SCH (09:32)
[2017-06-27] MEDS: busPIRone 15 MG (BUSPAR) TABLET PO SCH (09:32)
[2017-06-27] MEDS: cefTRIAXone INJECTION 1,000 MG in NS (IVPB) 50 ML IV SCH (09:32)
--- NOTE | 2017-06-27 10:49 | Physical Therapy Progress Note ---
Therapy Progress Note Patient declined PT this a.m. and will dismiss to [place] for continued care on this date. 1 ref HARRY Carroll PT Jun 27, 2017 10:49
[2017-06-27] MEDS: HYDROcodone/APAP 5 MG/325 MG (LORTAB) TAB PO PRN (12:01)
[2017-06-27] MEDS: KCL 20 MEQ TAB (K-DUR) PO SCH (12:01)
[2017-06-27] MEDS ORDERED: LOPERAMIDE 2 MG (IMODIUM) CAP PO PRN (14:00)
[2017-06-27] MEDS ORDERED: LOPE2CAP PO (14:07)
[2017-06-27] MEDS: ALPRAZolam 0.25 MG (XANAX) TAB PO PRN (14:15)
== END 2017-06-27 14:50 | DRG 641 ==
LOC: EDUNIT# 02:27 → ER 02:29 → 4TH 03:30
PROVIDERS: ADMIT Family Medicine; ATTEND Family Medicine
DX: E87.70 Fluid overload, unspecified (principal); J06.9 Acute upper respiratory infection, unspecified; R09.02 Hypoxemia; K52.1 Toxic gastroenteritis and colitis; T36.95XA Adverse effect of unspecified systemic antibiotic, initial encounter; I11.0 Hypertensive heart disease with heart failure; I50.9 Heart failure, unspecified; Z66 Do not resuscitate; K21.9 Gastro-esophageal reflux disease without esophagitis; K44.9 Diaphragmatic hernia without obstruction or gangrene; I48.91 Unspecified atrial fibrillation; E11.9 Type 2 diabetes mellitus without complications; E78.00 Pure hypercholesterolemia, unspecified; F03.90 Unspecified dementia, unspecified severity, without behavioral disturbance, psychotic disturbance, mood disturbance, and anxiety; E03.9 Hypothyroidism, unspecified; G43.909 Migraine, unspecified, not intractable, without status migrainosus; J30.2 Other seasonal allergic rhinitis; M19.91 Primary osteoarthritis, unspecified site; F41.9 Anxiety disorder, unspecified; F32.9 Major depressive disorder, single episode, unspecified; R53.81 Other malaise; K91.1 Postgastric surgery syndromes; Z99.81 Dependence on supplemental oxygen; Z79.01 Long term (current) use of anticoagulants; Z95.0 Presence of cardiac pacemaker; Z87.19 Personal history of other diseases of the digestive system; Z87.442 Personal history of urinary calculi
CPT/HCPCS: 36415; 71045; 71046; 80048; 80053; 80162; 81000; 82962; 83605; 83735; 83880; 85007; 85025; 85027; 86141; 87040; 87804; 93005; 94640; 94664; 94760; 94761; 96361; 96365; 96375

== ENCOUNTER 2017-09-17 09:12 | Emergency (ER) | payer MEDICARE, OTHER, MEDICAID ==
[~2017-09-17] VITALS: Ht 167.6 cm; Wt 79.4 kg
[~2017-09-17 09:12] MED LIST changes: +ALBU2.5V4 INH; +BENZ200C51 PO; +CEFD300C3 PO; +CEPH500C PO; +CLOB15OI2 TOP; +CNC1KV INJ; +DEXL60CA PO; +DONE10TA41 PO; +DOXY100C2 PO; +FLUT12AE4 IH; +IPRA3AMP INH; +LACT1CAP74 PO; +LOPE2CAP PO; +LOSA100T28 PO; +MELO15TA39 PO; +OMEG1CAP58 PO; +PANT40TA3 PO
--- OUTSIDE RECORDS SUMMARY | 2017-09-17 09:18 | XMS REPORT | Continuity of Care Document ---
Author Author [employer] Organization [facility] Address Unknown Phone Unavailable Care Team Providers Care Screen Stretcher Name Role Phone [employer] Unavailable Unavailable Problems Medications Allergies, Adverse Reactions, Alerts Immunizations Results Vital Signs Encounters Location Location Details Encounter Type Encounter Number Reason For Visit Attending Provider ADM Date DC Date Status Source OUTPATIENT [id number] BERTHA DHALIWAL 11/18/2016 11/18/2016 Active [facility] OUTPATIENT [id number] ISAIAH OROSCO 02/22/2017 Active [facility] OUTPATIENT [id number] BERTHA DHALIWAL 05/18/2017 05/18/2017 Active [facility] OUTPATIENT [id number] ISAIAH OROSCO 08/18/2017 Active [facility] O Active [facility] Procedures Plan of Care Social History Assessment and Plan Family History Advance Directives Functional Status
--- OUTSIDE RECORDS SUMMARY | 2017-09-17 09:24 | XMS REPORT | CCD ---
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 Name Role Phone PP Unavailable CCM Unavailable Summary Purpose Interface Exchange Insurance Providers Payer name Policy type / Coverage type Covered libertarian ID Effective Begin Date Effective End Date WPS Medicare Part B Medicare Part B [id number] Unknown Unknown Principal Life Insurance Medicare Part B [id number] Unknown Unknown Family history Brother Diagnosis Age At Onset Heart Attack Unknown Mother Diagnosis Age At Onset Hypertension Unknown kidney disease Unknown Stroke Unknown Father Diagnosis Age At Onset Arthritis Unknown Social History Social History Element Codes Description Effective Dates Employment Unknown Retired worked at [employer] 2016 Marital status Unknown Single 12/16/[address]: 6727162 Former smoker 12/16/[address]: 342512154 Never drinks alcohol 12/16/2014 Allergies, Adverse Reactions, Alerts Allergies, Adverse Reactions, Alerts data not found Past Medical History Illness Codes Condition Status Onset Date Resolved Date Atrophy of thyroid (acquired) ICD-9: 244.8 ICD-10: E03.4 Active 01/23/2017 Unknown Candidiasis of skin and nail ICD-9: 112.3 ICD-10: B37.2 Active 07/06/2017 Unknown Cough ICD-9: 786.2 ICD-10: R05 Active 07/06/2017 Unknown Laceration without foreign body of left forearm, initial encounter ICD-9: 881.00 ICD-10: S51.812A Active 07/06/2017 Unknown 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 Active 06/05/2017 Unknown Slow transit constipation ICD-9: 564.01 ICD-10: K59.01 Active 07/06/2017 Unknown 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 Active 07/04/2016 Unknown Encounter for general adult medical examination with abnormal findings ICD-9: V70.0 ICD-10: Z00.01 Active 06/05/2017 Unknown Chronic atrial fibrillation ICD-9: 427.31 ICD-10: I48.2 Active 12/15/2014 Unknown Essential (primary) hypertension ICD-9: 401.9 ICD-10: I10 Active 12/15/2014 Unknown 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-9: 281.0 ICD-10: D51.0 Active 05/25/2017 Unknown Vitamin B12 deficiency anemia, unspecified ICD-9: 281.1 ICD-10: D51.9 Active 06/21/2016 Unknown Chest pain on breathing ICD-9: 786.52 ICD-10: R07.1 Active 03/23/2017 Unknown Chondrocostal junction syndrome [Tietze] ICD-9: 733.6 ICD-10: M94.0 Active 03/23/2017 Unknown Other fatigue ICD-9: 780.79 ICD-10: R53.83 Active 03/23/2017 Unknown Type 2 diabetes mellitus without complications ICD-9: 250.00 ICD-10: E11.9 Active 12/15/2014 Unknown Encounter for immunization ICD-9: V04.81 ICD-10: Z23 Active 03/14/2016 Unknown Headache ICD-9: 784.0 ICD-10: R51 Active 05/11/2015 Unknown Dysuria ICD-9: 788.1 ICD-10: R30.0 Active 11/07/2016 Unknown Low back pain ICD-9: 724.2 ICD-10: M54.5 Active 11/02/2016 Unknown Pain in thoracic spine ICD-9: 724.1 ICD-10: M54.6 Active 11/02/2016 Unknown Generalized abdominal pain ICD-9: 789.07 ICD-10: R10.84 Active 09/29/2016 Unknown Encounter for general adult medical examination without abnormal findings ICD-9: V70.9 ICD-10: Z00.00 Active 05/29/2016 Unknown Benign lipomatous neoplasm of skin and subcutaneous tissue of right leg ICD-9: 214.1 ICD-10: D17.23 Active 05/24/2016 Unknown Encounter for immunization ICD-9: V03.82 ICD-10: Z23 Active 05/24/2016 Unknown Pain in right ankle and joints of right foot ICD-9: 719.47 ICD-10: M25.571 Active 05/24/2016 Unknown Encounter for screening mammogram for malignant neoplasm of breast ICD-9: V76.12 ICD-10: Z12.31 Active 03/21/2016 Unknown Other chest pain ICD-9 : 786.59 ICD-10: R07.89 Active 02/24/2016 Unknown Hypothyroidism, unspecified ICD-9: 244.9 ICD-10: E03.9 Active 12/15/2014 Unknown 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.24 ICD-10: G47.34 Active 01/24/2016 Unknown Other hypersomnia ICD- 9: 780.54 ICD-10: G47.19 Active 01/24/2016 Unknown Acute nasopharyngitis [common cold] ICD-9: 460 ICD-10: J00 Active 11/10/2015 Unknown Other allergic rhinitis ICD-9: 477.8 ICD-10: J30.89 Active 11/10/2015 Unknown Chronic fatigue, unspecified ICD-9: 780.71 ICD-10: R53.82 Active 10/11/2015 Unknown Essential tremor ICD-9 : 333.1 ICD-10: G25.0 Active 10/11/2015 Unknown Abnormal levels of other serum enzymes ICD-9: 790.5 ICD-10: R74.8 Active 09/02/2015 Unknown Actinic keratosis ICD- 9: 702.0 ICD-10: L57.0 Active 05/18/2015 Unknown Nausea ICD-9: 787.02 ICD-10: R11.0 Active 05/18/2015 Unknown Cervicalgia ICD-9: 723.1 ICD-10: M54.2 Active 05/11/2015 Unknown Other screening mammogram ICD-9: V76.12 Active 01/21/2015 Unknown Insomnia ICD-9: 780.52 Active 01/12/2015 Unknown Diabetes Unknown Active 12/16/2014 Unknown Hypertension Unknown Active 12/16/2014 Unknown Hypothryroidism Unknown Active 12/16/2014 Unknown Afib ICD-9: 427.31 Active 12/15/2014 Unknown Anxiety ICD-9: 300.00 Active 12/15/2014 Unknown DIABETES TYPE II ICD-9 : 250.00 Active 12/15/2014 Unknown ESSENTIAL HYPERTENSION ICD-9: 401.9 Active 12/15/2014 Unknown Hypothyroidism ICD-9: 244.9 Active 12/15/2014 Unknown B12 deficiency ICD-9: 266.2 Active 10/27/2014 Unknown Problems Condition Codes Effective Dates Condition Status Atrophy of thyroid (acquired) ICD-9: 244.8 ICD-10: E03.4 01/23/2017 Active Candidiasis of skin and nail ICD-9: 112.3 ICD-10: B37.2 07/06/2017 Active Cough ICD-9: 786.2 ICD-10: R05 07/06/2017 Active Laceration without foreign body of left forearm, initial encounter ICD-9: 881.00 ICD-10: S51.812A 07/06/2017 Active 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 06/05/2017 Active Slow transit constipation ICD-9: 564.01 ICD-10: K59.01 07/06/2017 Active 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 07/04/2016 Active Encounter for general adult medical examination with abnormal findings ICD-9: V70.0 ICD-10: Z00.01 06/05/2017 Active Chronic atrial fibrillation ICD-9: 427.31 ICD-10: I48.2 12/15/2014 Active Essential (primary) hypertension ICD-9: 401.9 ICD-10: I10 12/15/2014 Active 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-9: 281.0 ICD-10: D51.0 05/25/2017 Active Vitamin B12 deficiency anemia, unspecified ICD-9: 281.1 ICD-10: D51.9 06/21/2016 Active Chest pain on breathing ICD-9: 786.52 ICD-10: R07.1 03/23/2017 Active Chondrocostal junction syndrome [Tietze] ICD-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 ICD-10: M94.0 03/23/2017 Active Other fatigue ICD-9: 780.79 ICD-10: R53.83 03/23/2017 Active Type 2 diabetes mellitus without complications ICD-9: 250.00 ICD-10: E11.9 12/15/2014 Active Encounter for immunization ICD-9: V04.81 ICD-10: Z23 03/14/2016 Active Headache ICD-9: 784.0 ICD-10: R51 05/11/2015 Active Dysuria ICD-9: 788.1 ICD-10: R30.0 11/07/2016 Active Low back pain ICD-9: 724.2 ICD-10: M54.5 11/02/2016 Active Pain in thoracic spine ICD-9: 724.1 ICD-10: M54.6 11/02/2016 Active Generalized abdominal pain ICD-9: 789.07 ICD-10: R10.84 09/29/2016 Active Encounter for general adult medical examination without abnormal findings ICD-9: V70.9 ICD-10: Z00.00 05/29/2016 Active Benign lipomatous neoplasm of skin and subcutaneous tissue of right leg ICD-9: 214.1 ICD-10: D17.23 05/24/2016 Active Encounter for immunization ICD-9: V03.82 ICD-10: Z23 05/24/2016 Active Pain in right ankle and joints of right foot ICD-9: 719.47 ICD-10: M25.571 05/24/2016 Active Encounter for screening mammogram for malignant neoplasm of breast ICD-9: V76.12 ICD-10: Z12.31 03/21/2016 Active Other chest pain ICD-9 : 786.59 ICD-10: R07.89 02/24/2016 Active Hypothyroidism, unspecified ICD-9: 244.9 ICD-10: E03.9 12/15/2014 Active 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.24 ICD-10: G47.34 01/24/2016 Active Other hypersomnia ICD- 9: 780.54 ICD-10: G47.19 01/24/2016 Active Acute nasopharyngitis [common cold] ICD-9: 460 ICD-10: J00 11/10/2015 Active Other allergic rhinitis ICD-9: 477.8 ICD-10: J30.89 11/10/2015 Active Chronic fatigue, unspecified ICD-9: 780.71 ICD-10: R53.82 10/11/2015 Active Essential tremor ICD-9 : 333.1 ICD-10: G25.0 10/11/2015 Active Abnormal levels of other serum enzymes ICD-9: 790.5 ICD-10: R74.8 09/02/2015 Active Actinic keratosis ICD- 9: 702.0 ICD-10: L57.0 05/18/2015 Active Nausea ICD-9: 787.02 ICD-10: R11.0 05/18/2015 Active Cervicalgia ICD-9: 723.1 ICD-10: M54.2 05/11/2015 Active Other screening mammogram ICD-9: V76.12 01/21/2015 Active Insomnia ICD-9: 780.52 01/12/2015 Active Diabetes Unknown 12/16/2014 Active Hypertension Unknown 12/16/2014 Active Hypothryroidism Unknown 12/16/2014 Active Afib ICD-9: 427.31 12/15/2014 Active Anxiety ICD-9: 300.00 12/15/2014 Active DIABETES TYPE II ICD-9 : 250.00 12/15/2014 Active ESSENTIAL HYPERTENSION ICD-9: 401.9 12/15/2014 Active Hypothyroidism ICD-9: 244.9 12/15/2014 Active B12 deficiency ICD-9: 266.2 10/27/2014 Active Medications Medication Codes Instructions Start Date Stop Date Status Fill Instructions nystatin 100,000 unit/gram topical powder RxNorm: 618121 1 Gram(s) TOP QID 07/06/2017 07/15/2017 Active cyanocobalamin (vit B-12) 1,000 mcg/mL injection solution RxNorm: 233872 Milliliter(s) Inj 07/06/2017 07/06/2017 Inactive Kenalog 40 mg/mL suspension for injection RxNorm: 1501986 1 Milliliter(s) Inj 06/20/2017 06/20/2017 Inactive cyanocobalamin (vit B-12) 1,000 mcg/mL injection solution RxNorm: 274751 Milliliter(s) Inj 06/20/2017 06/20/2017 Inactive Mobic 15 mg tablet RxNorm: 432698 1 Tablet(s) PO daily 201606/08/2018 Active Keflex 500 mg capsule RxNorm: 254318 1 Capsule(s) PO TID 201606/23/2017 Inactive Please deliver to patient cyanocobalamin (vit B-12) 1,000 mcg/mL injection solution RxNorm: 086411 Milliliter(s) Inj 06/05/2017 06/05/2017 Inactive buspirone 15 mg tablet RxNorm: 438362 TAKE 1 TABLET BY MOUTH TWICE DAILY 05/31/2017 05/25/2018 Active Generic For:BUSPAR 15MG 05/31/2017 9:19:20 AM hydrocodone 5 mg-acetaminophen 325 mg tablet RxNorm: 926074 1-2 Tablet(s) PO Q6 as needed for pain 05/25/2017 06/23/2017 Inactive cyanocobalamin (vit B-12) 1,000 mcg/mL injection solution RxNorm: 971411 Milliliter(s) Inj 05/25/2017 05/25/2017 Inactive amiodarone 200 mg tablet RxNorm: 709545 1/2 Tablet(s) PO daily 05/22/2017 No Stop Date Active cardiology decreased to 100mg daily cyanocobalamin (vit B-12) 1,000 mcg/mL injection solution RxNorm: 833062 Milliliter(s) Inj 05/16/2017 05/16/2017 Inactive Zofran ODT 4 mg disintegrating tablet RxNorm: 434392 1 Tablet(s) PO TID as needed 05/03/2017 05/04/2017 Inactive hydrocodone 5 mg-acetaminophen 325 mg tablet RxNorm: 774930 1-2 Tablet(s) PO Q6 as needed for pain 05/01/2017 05/05/2017 Inactive cyanocobalamin (vit B-12) 1,000 mcg/mL injection solution RxNorm: 275800 1 Milliliter(s) Inj 05/01/2017 05/01/2017 Inactive cyanocobalamin (vit B-12) 1,000 mcg/mL injection solution RxNorm: 148046 INJECT ONE 1 ML EVERY TWO WEEKS 04/26/20172018 Active 04/26/2017 9:08:52 AM Zoloft 50 mg tablet RxNorm: 640464 Tablet(s) TAKE 1 TABLET BY MOUTH DAILY 04/25/2017 10/21/2017 Active Generic For:ZOLOFT 50MG cyanocobalamin (vit B-12) 1,000 mcg/mL injection solution RxNorm: 163489 Milliliter(s) Inj 04/18/2017 04/18/2017 Inactive liothyronine 5 mcg tablet RxNorm: 359276 1 Tablet(s) PO BID 10/09/2017 Active cyanocobalamin (vit B-12) 1,000 mcg/mL injection solution RxNorm: 216748 Milliliter(s) Inj 04/06/2017 04/06/2017 Inactive hydrocodone 5 mg-acetaminophen 325 mg tablet RxNorm: 268164 1-2 Tablet(s) PO Q6 as needed for pain 04/06/2017 04/10/2017 Inactive cyanocobalamin (vit B-12) 1,000 mcg/mL injection solution RxNorm: 601402 Milliliter(s) Inj 03/22/2017 03/22/2017 Inactive alprazolam 0.25 mg tablet RxNorm: 797435 1 Tablet(s) PO BID 09/12/2017 Active alprazolam 0.25 mg tablet RxNorm: 984347 1 Tablet(s) PO BID 09/10/2017 Active hydrocodone 5 mg-acetaminophen 325 mg tablet RxNorm: 575964 1-2 Tablet(s) PO Q6 as needed for pain 03/09/2017 03/13/2017 Inactive cyanocobalamin (vit B-12) 1,000 mcg/mL injection solution RxNorm: 488140 Milliliter(s) Inj 03/09/2017 03/09/2017 Inactive cyanocobalamin (vit B-12) 1,000 mcg/mL injection solution RxNorm: 405775 Milliliter(s) Inj 02/23/2017 02/23/2017 Inactive cyanocobalamin (vit B-12) 1,000 mcg/mL injection solution RxNorm: 725209 Milliliter(s) Inj 02/09/2017 02/09/2017 Inactive hydrocodone 5 mg-acetaminophen 325 mg tablet RxNorm: 101795 1-2 Tablet(s) PO Q6 as needed for pain 02/08/2017 02/12/2017 Inactive Topamax 25 mg tablet RxNorm: 552050 1 Tablet(s) PO BID 201605/22/2017 Inactive Generic For:TOPAMAX 25MG 12/06/2016 9:15:13 AM cyanocobalamin (vit B-12) 1,000 mcg/mL injection solution RxNorm: 315835 Milliliter(s) Inj 01/23/2017 01/23/2017 Inactive cyanocobalamin (vit B-12) 1,000 mcg/mL injection solution RxNorm: 284532 Milliliter(s) Inj 01/10/2017 01/10/2017 Inactive hydrocodone 5 mg-acetaminophen 325 mg tablet RxNorm: 921274 1-2 Tablet(s) PO Q6 as needed for pain 01/09/2017 01/13/2017 Inactive cyanocobalamin (vit B-12) 1,000 mcg/mL injection solution RxNorm: 197804 1 Milliliter(s) Inj 12/28/2016 12/28/2016 Inactive cyanocobalamin (vit B-12) 1,000 mcg/mL injection solution RxNorm: 633746 Milliliter(s) Inj 12/14/2016 12/14/2016 Inactive buspirone 15 mg tablet RxNorm: 129601 1 Tablet(s) PO BID 201605/30/2017 Inactive hydrocodone 5 mg-acetaminophen 325 mg tablet RxNorm: 273986 1-2 Tablet(s) PO Q6 as needed for pain 12/08/2016 12/12/2016 Inactive Topamax 25 mg tablet RxNorm: 269553 TAKE 1 TABLET BY MOUTH EVERY DAY AT BEDTIME 12/06/2016 01/22/2017 Inactive Generic For:TOPAMAX 25MG 12/06/2016 9:15:13 AM Lac-Hydrin Five 5 % lotion RxNorm: 874652 1 Gram(s) TOP daily 12/02/2016 01/30/2017 Inactive cyanocobalamin (vit B-12) 1,000 mcg/mL injection solution RxNorm: 505682 Milliliter(s) Inj 11/24/2016 11/24/2016 Inactive Ceftin 500 mg tablet RxNorm: 486247 1 Tablet(s) PO BID 201606/13/2017 Inactive Cipro 500 mg tablet RxNorm: 073684 1 Tablet(s) PO BID 201611/10/2016 Inactive Cipro 500 mg tablet RxNorm: 281278 1 Tablet(s) PO BID 201611/11/2016 Inactive cyanocobalamin (vit B-12) 1,000 mcg/mL injection solution RxNorm: 078635 1 Milliliter(s) Inj 11/07/2016 11/07/2016 Inactive hydrocodone 5 mg-acetaminophen 325 mg tablet RxNorm: 402682 1-2 Tablet(s) PO Q6 as needed for pain 11/02/2016 11/06/2016 Inactive levothyroxine 125 mcg tablet RxNorm: 176173 Tablet(s) 1 Tablet(s) PO daily 10/24/2016 04/21/2017 Inactive cyanocobalamin (vit B-12) 1,000 mcg/mL injection solution RxNorm: 452111 Milliliter(s) Inj 10/24/2016 10/24/2016 Inactive liothyronine 5 mcg tablet RxNorm: 458879 1 Tablet(s) PO BID 01/201704/12/2017 Inactive hydrocodone 5 mg-acetaminophen 325 mg tablet RxNorm: 164298 1-2 Tablet(s) PO Q6 as needed for pain 10/17/2016 10/21/2016 Inactive Keflex 500 mg capsule RxNorm: 431798 1 Capsule(s) PO TID 201610/06/2016 Inactive Keflex 500 mg capsule RxNorm: 208790 1 Capsule(s) PO TID 201610/16/2016 Inactive Please deliver to patient cyanocobalamin (vit B-12) 1,000 mcg/mL injection solution RxNorm: 258926 1 Milliliter(s) Inj 09/29/2016 09/29/2016 Inactive alprazolam 0.25 mg tablet RxNorm: 815035 1 Tablet(s) PO BID 09/201603/16/2017 Inactive Cozaar 100 mg tablet RxNorm: 989602 1 Tablet(s) PO daily 2016 No Stop Date Active metoprolol tartrate 50 mg tablet RxNorm: 039615 1/2 Tablet(s) PO BID 09/14/2016 12/12/2016 Inactive Zoloft 50 mg tablet RxNorm: 841995 Tablet(s) TAKE 1 TABLET BY MOUTH DAILY 09/14/2016 03/12/2017 Inactive Generic For:ZOLOFT 50MG liothyronine 5 mcg tablet RxNorm: 602319 1 Tablet(s) PO BID 10/23/2016 Inactive Calmoseptine 0.44 %-20.6 % topical ointment RxNorm: 406126 1 Application TOP BID and as needed to sore on buttocks 09/07/2016 No Stop Date Active cyanocobalamin (vit B-12) 1,000 mcg/mL injection solution RxNorm: 123351 Milliliter(s) Inj 08/29/2016 08/29/2016 Inactive hydrocodone 5 mg-acetaminophen 325 mg tablet RxNorm: 927544 1-2 Tablet(s) PO Q6 as needed for pain 08/29/2016 10/16/2016 Inactive levothyroxine 125 mcg tablet RxNorm: 568720 1 Tablet(s) PO daily 08/25/2016 10/23/2016 Inactive Topamax 25 mg tablet RxNorm: 784754 TAKE 1 TABLET BY MOUTH EVERY DAY AT BEDTIME 08/17/2016 12/05/2016 Inactive Generic For:TOPAMAX 25MG 08/17/2016 2:14:37 PM hydrocodone 5 mg-acetaminophen 325 mg tablet RxNorm: 030051 1-2 Tablet(s) PO Q6 as needed for pain 08/11/2016 08/28/2016 Inactive hydrocodone 5 mg-acetaminophen 325 mg tablet RxNorm: 226285 1 -2 Tablet(s) PO Q6 as needed for pain 08/11/2016 08/18/2016 Inactive hydrocodone 5 mg-acetaminophen 325 mg tablet RxNorm: 780081 1 Tablet(s) PO Q6 as needed for pain 08/05/2016 08/10/2016 Inactive cyanocobalamin (vit B-12) 1,000 mcg/mL injection solution RxNorm: 380494 Milliliter(s) Inj 08/04/2016 08/04/2016 Inactive Norvasc 10 mg tablet RxNorm: 958517 1 Tablet(s) PO daily 201607/20/2017 Active levothyroxine 125 mcg tablet RxNorm: 396416 1 Tablet(s) PO daily 07/21/2016 10/18/2016 Inactive alprazolam 0.25 mg tablet RxNorm: 665062 1 Tablet(s) PO QHS 07/201609/19/2016 Inactive Norvasc 5 mg tablet RxNorm: 186331 1 Tablet(s) PO daily 201607/25/2016 Inactive cyanocobalamin (vit B-12) 1,000 mcg/mL injection solution RxNorm: 145080 Milliliter(s) Inj 07/21/2016 07/21/2016 Inactive Zoloft 50 mg tablet RxNorm: 321384 Tablet(s) TAKE 1 TABLET BY MOUTH DAILY 07/21/2016 09/13/2016 Inactive Generic For:ZOLOFT 50MG cyanocobalamin (vit B-12) 1,000 mcg/mL injection solution RxNorm: 351997 1 Milliliter(s) Inj 07/05/2016 07/05/2016 Inactive cyanocobalamin (vit B-12) 1,000 mcg/mL injection solution RxNorm: 231463 1 Milliliter(s) Inj 06/22/2016 06/22/2016 Inactive cyanocobalamin (vit B-12) 1,000 mcg/mL injection solution RxNorm: 137931 Milliliter(s) Inj 06/09/2016 06/09/2016 Inactive Aricept 10 mg tablet RxNorm: 825687 1 Tablet(s) PO daily 201505/21/2017 Inactive Mobic 15 mg tablet RxNorm: 519344 1 Tablet(s) PO daily 201505/21/2017 Inactive levothyroxine 125 mcg tablet RxNorm: 818648 1 Tablet(s) PO daily 05/25/2016 07/20/2016 Inactive cyanocobalamin (vit B-12) 1,000 mcg/mL injection solution RxNorm: 019567 1 Milliliter(s) Inj 05/25/2016 05/25/2016 Inactive doxycycline hyclate 100 mg capsule RxNorm: 9942695 1 Capsule(s) PO BID 05/16/2016 05/15/2016 Inactive doxycycline hyclate 100 mg capsule RxNorm: 0584325 1 Capsule(s) PO BID 05/16/2016 05/22/2016 Inactive cyanocobalamin (vit B-12) 1,000 mcg/mL injection solution RxNorm: 527355 Milliliter(s) Inj 05/10/2016 05/10/2016 Inactive cyanocobalamin (vit B-12) 1,000 mcg/mL injection solution RxNorm: 635369 Milliliter(s) Inj 04/26/2016 04/26/2016 Inactive Topamax 25 mg tablet RxNorm: 261670 1 Tablet(s) PO QPM 201508/16/2016 Inactive cyanocobalamin (vit B-12) 1,000 mcg/mL injection solution RxNorm: 179139 Milliliter(s) 1 Milliliter(s) Inj [id number] 04/11/2016 12/31/2017 Active liothyronine 5 mcg tablet RxNorm: 718646 1 Tablet(s) PO BID 09/13/2016 Inactive cyanocobalamin (vit B-12) 1,000 mcg/mL injection solution RxNorm: 427753 Milliliter(s) Inj 04/11/2016 04/11/2016 Inactive cyanocobalamin (vit B-12) 1,000 mcg/mL injection solution RxNorm: 149864 Milliliter(s) Inj 03/31/2016 03/31/2016 Inactive cyanocobalamin (vit B-12) 1,000 mcg/mL injection solution RxNorm: 396945 1 Milliliter(s) Inj 03/15/2016 03/15/2016 Inactive levothyroxine 125 mcg tablet RxNorm: 106257 1 Tablet(s) PO daily 2016 03/03/2016 Inactive levothyroxine 125 mcg tablet RxNorm: 511715 1 Tablet(s) PO daily 2016 05/24/2016 Inactive cyanocobalamin (vit B-12) 1,000 mcg/mL injection solution RxNorm: 822860 Milliliter(s) Inj 02/25/2016 02/25/2016 Inactive cyanocobalamin (vit B-12) 1,000 mcg/mL injection solution RxNorm: 727917 1 Milliliter(s) Inj 02/02/2016 02/02/2016 Inactive sucralfate 1 gram tablet RxNorm: 932891 1 Tablet(s) PO QHS 01/2016 No Stop Date Active amiodarone 200 mg tablet RxNorm: 359289 1/2 Tablet(s) PO BID 05/21/2017 Inactive cyanocobalamin (vit B-12) 1,000 mcg/mL injection solution RxNorm: 745304 Milliliter(s) Inj 01/18/2016 01/18/2016 Inactive cyanocobalamin (vit B-12) 1,000 mcg/mL injection solution RxNorm: 131102 Milliliter(s) Inj 12/29/2015 12/29/2015 Inactive Topamax 25 mg tablet RxNorm: 221356 1 Tablet(s) PO QPM 201504/05/2016 Inactive cyanocobalamin (vit B-12) 1,000 mcg/mL injection solution RxNorm: 537078 Milliliter(s) Inj 12/08/2015 12/08/2015 Inactive Bactrim DS 800 mg-160 mg tablet RxNorm: 714093 1 Tablet(s) PO BID 11/23/2015 11/22/2015 Inactive cyanocobalamin (vit B-12) 1,000 mcg/mL injection solution RxNorm: 674994 Milliliter(s) Inj 11/23/2015 11/23/2015 Inactive Bactrim DS 800 mg-160 mg tablet RxNorm: 226228 1 Tablet(s) PO BID 11/23/2015 11/29/2015 Inactive cyanocobalamin (vit B-12) 1,000 mcg/mL injection solution RxNorm: 443039 Milliliter(s) Inj 11/11/2015 11/11/2015 Inactive amoxicillin 500 mg capsule RxNorm: 932888 1 Capsule(s) PO TID 11/10/2015 11/19/2015 Inactive Zithromax Z-Henrique 250 mg tablet RxNorm: 638900 1 Tablet(s) PO UD 11/10/2015 01/24/2016 Inactive zpack x 1 amoxicillin 500 mg capsule RxNorm: 007513 1 Capsule(s) PO TID 11/10/2015 11/09/2015 Inactive cyanocobalamin (vit B-12) 1,000 mcg/mL injection solution RxNorm: 973693 1 Milliliter(s) Inj 10/29/2015 10/29/2015 Inactive Wells 3 capsule RxNorm : 1 Capsule(s) PO QAM , 2 Capsules at noon, 1 Capsule QHS 10/13/2015 No Stop Date Active potassium chloride ER 20 mEq tablet,extended release RxNorm: 810998 2 Tablet(s) PO daily at noon 10/13/2015 No Stop Date Active alprazolam 0.25 mg tablet RxNorm: 434773 1 Tablet(s) PO QHS 07/20/2016 Inactive amiodarone 200 mg tablet RxNorm: 344153 1 Tablet(s) PO BID 01/24/2016 Inactive cyanocobalamin (vit B-12) 1,000 mcg/mL injection solution RxNorm: 131613 1 Milliliter(s) Inj 10/12/2015 10/12/2015 Inactive Zofran 4 mg tablet RxNorm: 165722 1 Tablet(s) PO daily as needed 10/07/2015 05/24/2016 Inactive Zoloft 50 mg tablet RxNorm: 645090 TAKE 1 TABLET BY MOUTH DAILY 10/05/2015 05/01/2016 Inactive Generic For:ZOLOFT 50MG cyanocobalamin (vit B-12) 1,000 mcg/mL injection solution RxNorm: 633817 1 Milliliter(s) Inj 09/29/2015 09/29/2015 Inactive cyanocobalamin (vit B-12) 1,000 mcg/mL injection solution RxNorm: 016704 1 Milliliter(s) Inj 09/17/2015 09/17/2015 Inactive Norvasc 5 mg tablet RxNorm: 538221 1 Tablet(s) PO daily 201507/20/2016 Inactive liothyronine 5 mcg tablet RxNorm: 634215 1 Tablet(s) PO BID 03/14/2016 Inactive Zoloft 50 mg tablet RxNorm: 726031 1 Tablet(s) PO daily 201510/04/2015 Inactive buspirone 15 mg tablet RxNorm: 472481 1 Tablet(s) PO BID 201509/10/2016 Inactive buspirone 15 mg tablet RxNorm: 317644 1 Tablet(s) PO BID 201509/16/2015 Inactive Topamax 25 mg tablet RxNorm: 378246 1 Tablet(s) PO QPM 201512/07/2015 Inactive cyanocobalamin (vit B-12) 1,000 mcg/mL injection solution RxNorm: 262936 1 Milliliter(s) Inj 09/03/2015 09/03/2015 Inactive cyanocobalamin (vit B-12) 1,000 mcg/mL injection solution RxNorm: 553594 Milliliter(s) Inj 08/17/2015 08/17/2015 Inactive cyanocobalamin (vit B-12) 1,000 mcg/mL injection solution RxNorm: 445851 Milliliter(s) Inj 08/06/2015 08/06/2015 Inactive levothyroxine 150 mcg tablet RxNorm: 495911 1 Tablet(s) PO daily 07/22/2015 03/03/2016 Inactive Aricept 10 mg tablet RxNorm: 929409 1 Tablet(s) PO daily 201505/26/2016 Inactive Mobic 15 mg tablet RxNorm: 481842 1 Tablet(s) PO daily 201505/26/2016 Inactive cyanocobalamin (vit B-12) 1,000 mcg/mL injection solution RxNorm: 793218 Milliliter(s) Inj 07/22/2015 07/22/2015 Inactive liothyronine 5 mcg tablet RxNorm: 936452 1 Tablet(s) PO BID 08/201509/16/2015 Inactive cyanocobalamin (vit B-12) 1,000 mcg/mL injection solution RxNorm: 513994 Milliliter(s) Inj 07/08/2015 07/08/2015 Inactive cyanocobalamin (vit B-12) 1,000 mcg/mL injection solution RxNorm: 491754 Milliliter(s) Inj 06/23/2015 06/23/2015 Inactive cyanocobalamin (vit B-12) 1,000 mcg/mL injection solution RxNorm: 128475 1 Milliliter(s) Inj 06/08/2015 06/08/2015 Inactive cyanocobalamin (vit B-12) 1,000 mcg/mL injection solution RxNorm: 208709 Milliliter(s) Inj 05/27/2015 05/27/2015 Inactive Aricept 10 mg tablet RxNorm: 431885 1 Tablet(s) PO daily 201407/21/2015 Inactive Zofran 4 mg tablet RxNorm: 336644 1 Tablet(s) PO daily as needed 05/20/2015 06/18/2015 Inactive alprazolam 0.25 mg tablet RxNorm: 113667 1 Tablet(s) PO BID 07/201410/12/2015 Inactive Mobic 15 mg tablet RxNorm: 860842 1 Tablet(s) PO daily 201407/21/2015 Inactive tramadol ER 100 mg tablet,extended release 24 hr RxNorm: 732331 1 Tablet(s) PO Q6 as needed 05/13/2015 No Stop Date Active cyanocobalamin (vit B-12) 1,000 mcg/mL injection solution RxNorm: 748290 1 Milliliter(s) Inj 05/12/2015 05/12/2015 Inactive Topamax 25 mg tablet RxNorm: 485295 1 Tablet(s) PO BID (start at one pill at bedtime x 1week then twice daily thereafter) 05/12/2015 09/02/2015 Inactive cyanocobalamin (vit B-12) 1,000 mcg/mL injection kit RxNorm: 561334 kit Inj 04/30/2015 04/30/2015 Inactive cyanocobalamin (vit B-12) 1,000 mcg/mL injection solution RxNorm: 587678 Milliliter(s) Inj 04/16/2015 04/16/2015 Inactive levothyroxine 150 mcg tablet RxNorm: 964980 1 Tablet(s) PO daily 04/08/2015 07/21/2015 Inactive cyanocobalamin (vit B-12) 1,000 mcg/mL injection solution RxNorm: 184714 Milliliter(s) 1 Milliliter(s) Inj [id number] 04/08/2015 04/10/2016 Inactive Cytomel 5 mcg tablet RxNorm: 506346 1 Tablet(s) PO BID 201410/12/2015 Inactive Cytomel 5 mcg tablet RxNorm: 537066 1 Tablet(s) PO BID 201404/07/2015 Inactive Cytomel 5 mcg tablet RxNorm: 225481 1 Tablet(s) PO BID 201404/06/2015 Inactive cyanocobalamin (vit B-12) 1,000 mcg/mL injection solution RxNorm: 056523 Milliliter(s) Inj 04/02/2015 04/02/2015 Inactive cyanocobalamin (vit B-12) 1,000 mcg/mL injection solution RxNorm: 308460 Milliliter(s) Inj 03/18/2015 03/18/2015 Inactive cyanocobalamin (vit B-12) 1,000 mcg/mL injection solution RxNorm: 835065 Milliliter(s) 1 Milliliter(s) Inj I8tabyy 03/18/2015 04/07/2015 Inactive cyanocobalamin (vit B-12) 1,000 mcg/mL injection solution RxNorm: 969788 1 Milliliter(s) Inj C7oikyo 03/16/201503/17 Inactive cyanocobalamin (vit B-12) 1,000 mcg/mL injection solution RxNorm: 285748 Milliliter(s) Inj 03/03/2015 03/03/2015 Inactive cyanocobalamin (vit B-12) 1,000 mcg/mL injection solution RxNorm: 084224 Milliliter(s) Inj 02/18/2015 02/18/2015 Inactive cyanocobalamin (vit B-12) 1,000 mcg/mL injection solution RxNorm: 577600 Milliliter(s) Inj 02/04/2015 02/04/2015 Inactive cyanocobalamin (vit B-12) 1,000 mcg/mL injection solution RxNorm: 352167 Milliliter(s) Inj 01/22/2015 01/22/2015 Inactive Lac-Hydrin Five 5 % lotion RxNorm: 834694 1 TOP daily 201403/13/2015 Inactive Lac-Hydrin Five 5 % lotion RxNorm: 363849 1 TOP daily 201401/12/2015 Inactive cyanocobalamin (vit B-12) 1,000 mcg/mL injection solution RxNorm: 208823 Milliliter(s) Inj 01/08/2015 01/08/2015 Inactive cyanocobalamin (vit B-12) 1,000 mcg/mL injection solution RxNorm: 773500 Milliliter(s) Inj 12/25/2014 12/25/2014 Inactive levothyroxine 150 mcg tablet RxNorm: 566838 1 Tablet(s) PO daily 12/24/2014 04/07/2015 Inactive tramadol 50 mg tablet RxNorm: 196796 1-2 Tablet(s) PO Q6 as needed 12/17/2014 05/12/2015 Inactive alprazolam 0.25 mg tablet RxNorm: 581787 1 Tablet(s) PO BID 06/201404/15/2015 Inactive Pradaxa 150 mg capsule RxNorm: 5070033 1 Capsule(s) PO BID No Stop Date Active metoprolol tartrate 50 mg tablet RxNorm: 201150 1/2 Tablet(s) PO BID 12/16/2014 09/13/2016 Inactive buspirone 15 mg tablet RxNorm: 262395 1 Tablet(s) PO BID 201409/13/2015 Inactive cyanocobalamin (vit B-12) 1,000 mcg/mL injection solution RxNorm: 965718 1 Milliliter(s) Inj T5aegdo 12/16/201403/15 Inactive cyanocobalamin (vit B-12) 1,000 mcg/mL injection solution RxNorm: 463045 1 Milliliter(s) Inj G9wqoau 12/16/201412/15 Inactive sucralfate 1 gram tablet RxNorm: 081322 Tablet(s) PO QID 201412/10/2015 Inactive cyanocobalamin (vit B-12) 1,000 mcg/mL injection solution RxNorm: 162227 Milliliter(s) Inj 12/10/2014 12/10/2014 Inactive cyanocobalamin (vit B-12) 1,000 mcg/mL injection solution RxNorm: 248376 Milliliter(s) Inj 11/26/2014 11/26/2014 Inactive Zoloft 50 mg tablet RxNorm: 304244 1 Tablet(s) PO daily 201406/21/2015 Inactive Zoloft 50 mg tablet RxNorm: 300572 1 Tablet(s) PO daily 201411/23/2014 Inactive cyanocobalamin (vit B-12) 1,000 mcg/mL injection kit RxNorm: 832448 Milliliter(s) Inj 11/12/2014 11/12/2014 Inactive cyanocobalamin (vit B-12) 1,000 mcg/mL injection solution RxNorm: 760173 Milliliter(s) Inj 10/28/2014 10/28/2014 Inactive [SAVINGS FOR NON-COVERED DRUGS -- BIN:[id number], PCN: [id number], Group: [id number], ID# [id number], Questions: . THIS IS NOT INSURANCE.] promethazine oral RxNorm: 8745 oral No Start Date Active digoxin 125 mcg tablet RxNorm: 442285 Tablet(s) PO every other day No Start Date Active furosemide 40 mg tablet RxNorm: 572924 1 Tablet(s) PO daily No Start Date Active Vitamin D3 5,000 unit tablet RxNorm: 910934 1 Tablet(s) PO daily No Start Date Active erythromycin 250 mg capsule,delayed release RxNorm: 519941 1 Capsule(s) PO AC No Start Date Active Protonix 40 mg tablet,delayed release RxNorm: 222144 1 Tablet(s) PO BID No Start Date Active Cozaar 100 mg tablet RxNorm: 618880 1 Tablet(s) PO daily No Start Date 09/13/2016 Inactive sucralfate 1 gram tablet RxNorm: 669032 Tablet(s) PO QID No Start Date 12/15/2014 Inactive amiodarone 200 mg tablet RxNorm: 108254 2 Tablet(s) PO daily No Start Date 10/13/2015 Inactive buspirone 15 mg tablet RxNorm: 172552 1 Tablet(s) PO daily No Start Date 12/15/2014 Inactive potassium chloride ER 20 mEq tablet,extended release RxNorm: 112544 1 Tablet(s) PO daily No Start Date 10/12/2015 Inactive Prilosec 40 mg capsule,delayed release RxNorm: 263924 1 Capsule(s) PO daily No Start Date 09/02/2015 Inactive Wells 3 capsule RxNorm : Capsule(s) PO No Start Date 10/12/2015 Inactive alprazolam 0.25 mg tablet RxNorm: 474696 Tablet(s) PO QHS No Start Date 12/16/2014 Inactive levothyroxine 125 mcg tablet RxNorm: 380915 1 Tablet(s) PO daily No Start Date 12/23/2014 Inactive liothyronine 5 mcg tablet RxNorm: 082202 1 Tablet(s) PO BID No Start Date 07/21/2015 Inactive Mobic 15 mg tablet RxNorm: 585846 Tablet(s) PO daily No Start Date 05/19/2015 Inactive Norvasc 5 mg tablet RxNorm: 827612 1 Tablet(s) PO daily No Start Date 09/16/2015 Inactive Zofran 4 mg tablet RxNorm: 026887 1 Tablet(s) PO daily as needed No Start Date 05/19/2015 Inactive tramadol 50 mg tablet RxNorm: 819805 1 Tablet(s) PO daily as needed No Start Date 12/16/2014 Inactive amiodarone 200 mg tablet RxNorm: 552802 1 Tablet(s) PO daily No Start Date 10/12/2015 Inactive Zofran ODT 4 mg disintegrating tablet RxNorm: 765121 1 Tablet(s) PO TID as needed No Start Date 05/02/2017 Inactive meclizine 25 mg tablet RxNorm: 480217 Tablet(s) PO as needed No Start Date 05/24/2016 Inactive Pradaxa 150 mg capsule RxNorm: 6357080 1 Capsule(s) PO daily No Start Date 12/15/2014 Inactive metoprolol tartrate 50 mg tablet RxNorm: 523135 1/2 Tablet(s) PO No Start Date 12/15/2014 Inactive Aricept 10 mg tablet RxNorm: 736965 Tablet(s) PO daily No Start Date 05/19/2015 Inactive Calmoseptine 0.44 %-20.6 % topical ointment RxNorm: 622670 1 Application TOP BID and as needed to sore on buttocks No Start Date 09/06/2016 Inactive Zithromax Z-Henrique 250 mg tablet RxNorm: 275161 1 Tablet(s) PO UD No Start Date 11/09/2015 Inactive zpack x 1 Medication Administered Medication Codes Instructions Start Date Status cyanocobalamin (vit B-12) 1,000 mcg/mL injection solution RxNorm: 575891 Milliliter 07/06/2017 Active cyanocobalamin (vit B-12) 1,000 mcg/mL injection solution RxNorm: 764325 Milliliter 06/05/2017 No longer Active cyanocobalamin (vit B-12) 1,000 mcg/mL injection solution RxNorm: 287471 Milliliter 05/25/2017 No longer Active cyanocobalamin (vit B-12) 1,000 mcg/mL injection solution RxNorm: 355752 Milliliter 05/16/2017 No longer Active cyanocobalamin (vit B-12) 1,000 mcg/mL injection solution RxNorm: 345487 1Milliliter 05/01/2017 No longer Active cyanocobalamin (vit B-12) 1,000 mcg/mL injection solution RxNorm: 646293 Milliliter 04/18/2017 No longer Active cyanocobalamin (vit B-12) 1,000 mcg/mL injection solution RxNorm: 388991 Milliliter 04/06/2017 No longer Active cyanocobalamin (vit B-12) 1,000 mcg/mL injection solution RxNorm: 659650 Milliliter 03/22/2017 No longer Active cyanocobalamin (vit B-12) 1,000 mcg/mL injection solution RxNorm: 145734 Milliliter 03/09/2017 No longer Active cyanocobalamin (vit B-12) 1,000 mcg/mL injection solution RxNorm: 055681 Milliliter 02/23/2017 No longer Active cyanocobalamin (vit B-12) 1,000 mcg/mL injection solution RxNorm: 509992 Milliliter 02/09/2017 No longer Active cyanocobalamin (vit B-12) 1,000 mcg/mL injection solution RxNorm: 292591 Milliliter 01/23/2017 No longer Active cyanocobalamin (vit B-12) 1,000 mcg/mL injection solution RxNorm: 222964 Milliliter 01/10/2017 No longer Active cyanocobalamin (vit B-12) 1,000 mcg/mL injection solution RxNorm: 839548 1Milliliter 12/28/2016 No longer Active cyanocobalamin (vit B-12) 1,000 mcg/mL injection solution RxNorm: 968139 Milliliter 12/14/2016 No longer Active cyanocobalamin (vit B-12) 1,000 mcg/mL injection solution RxNorm: 151034 Milliliter 11/24/2016 No longer Active cyanocobalamin (vit B-12) 1,000 mcg/mL injection solution RxNorm: 645285 1Milliliter 11/07/2016 No longer Active cyanocobalamin (vit B-12) 1,000 mcg/mL injection solution RxNorm: 228492 Milliliter 10/24/2016 No longer Active cyanocobalamin (vit B-12) 1,000 mcg/mL injection solution RxNorm: 174121 1Milliliter 09/29/2016 No longer Active cyanocobalamin (vit B-12) 1,000 mcg/mL injection solution RxNorm: 324570 Milliliter 08/29/2016 No longer Active cyanocobalamin (vit B-12) 1,000 mcg/mL injection solution RxNorm: 644302 Milliliter 08/04/2016 No longer Active cyanocobalamin (vit B-12) 1,000 mcg/mL injection solution RxNorm: 332969 Milliliter 07/21/2016 No longer Active cyanocobalamin (vit B-12) 1,000 mcg/mL injection solution RxNorm: 628162 1Milliliter 07/05/2016 No longer Active cyanocobalamin (vit B-12) 1,000 mcg/mL injection solution RxNorm: 838793 1Milliliter 06/22/2016 No longer Active cyanocobalamin (vit B-12) 1,000 mcg/mL injection solution RxNorm: 930970 Milliliter 06/09/2016 No longer Active cyanocobalamin (vit B-12) 1,000 mcg/mL injection solution RxNorm: 691853 1Milliliter 05/25/2016 No longer Active cyanocobalamin (vit B-12) 1,000 mcg/mL injection solution RxNorm: 968399 Milliliter 05/10/2016 No longer Active cyanocobalamin (vit B-12) 1,000 mcg/mL injection solution RxNorm: 518162 Milliliter 04/26/2016 No longer Active cyanocobalamin (vit B-12) 1,000 mcg/mL injection solution RxNorm: 234894 Milliliter 04/11/2016 No longer Active cyanocobalamin (vit B-12) 1,000 mcg/mL injection solution RxNorm: 611358 Milliliter 03/31/2016 No longer Active cyanocobalamin (vit B-12) 1,000 mcg/mL injection solution RxNorm: 297157 1Milliliter 03/15/2016 No longer Active cyanocobalamin (vit B-12) 1,000 mcg/mL injection solution RxNorm: 988876 Milliliter 02/25/2016 No longer Active cyanocobalamin (vit B-12) 1,000 mcg/mL injection solution RxNorm: 480496 1Milliliter 02/02/2016 No longer Active cyanocobalamin (vit B-12) 1,000 mcg/mL injection solution RxNorm: 351058 Milliliter 01/18/2016 No longer Active cyanocobalamin (vit B-12) 1,000 mcg/mL injection solution RxNorm: 010803 Milliliter 12/29/2015 No longer Active cyanocobalamin (vit B-12) 1,000 mcg/mL injection solution RxNorm: 754488 Milliliter 12/08/2015 No longer Active cyanocobalamin (vit B-12) 1,000 mcg/mL injection solution RxNorm: 279895 Milliliter 11/23/2015 No longer Active cyanocobalamin (vit B-12) 1,000 mcg/mL injection solution RxNorm: 890106 Milliliter 11/11/2015 No longer Active cyanocobalamin (vit B-12) 1,000 mcg/mL injection solution RxNorm: 739002 1Milliliter 10/29/2015 No longer Active cyanocobalamin (vit B-12) 1,000 mcg/mL injection solution RxNorm: 702173 1Milliliter 10/12/2015 No longer Active cyanocobalamin (vit B-12) 1,000 mcg/mL injection solution RxNorm: 232084 1Milliliter 09/29/2015 No longer Active cyanocobalamin (vit B-12) 1,000 mcg/mL injection solution RxNorm: 802178 1Milliliter 09/17/2015 No longer Active cyanocobalamin (vit B-12) 1,000 mcg/mL injection solution RxNorm: 844977 1Milliliter 09/03/2015 No longer Active cyanocobalamin (vit B-12) 1,000 mcg/mL injection solution RxNorm: 117701 Milliliter 08/17/2015 No longer Active cyanocobalamin (vit B-12) 1,000 mcg/mL injection solution RxNorm: 813294 Milliliter 08/06/2015 No longer Active cyanocobalamin (vit B-12) 1,000 mcg/mL injection solution RxNorm: 510586 Milliliter 07/22/2015 No longer Active cyanocobalamin (vit B-12) 1,000 mcg/mL injection solution RxNorm: 849007 Milliliter 07/08/2015 No longer Active cyanocobalamin (vit B-12) 1,000 mcg/mL injection solution RxNorm: 829545 Milliliter 06/23/2015 No longer Active cyanocobalamin (vit B-12) 1,000 mcg/mL injection solution RxNorm: 561095 1Milliliter 06/08/2015 No longer Active cyanocobalamin (vit B-12) 1,000 mcg/mL injection solution RxNorm: 927572 Milliliter 05/27/2015 No longer Active cyanocobalamin (vit B-12) 1,000 mcg/mL injection solution RxNorm: 506527 1Milliliter 05/12/2015 No longer Active cyanocobalamin (vit B-12) 1,000 mcg/mL injection kit RxNorm : 527841 kit 04/30/2015 No longer Active cyanocobalamin (vit B-12) 1,000 mcg/mL injection solution RxNorm: 575403 Milliliter 04/16/2015 No longer Active cyanocobalamin (vit B-12) 1,000 mcg/mL injection solution RxNorm: 399342 Milliliter 04/02/2015 No longer Active cyanocobalamin (vit B-12) 1,000 mcg/mL injection solution RxNorm: 094723 Milliliter 03/18/2015 No longer Active cyanocobalamin (vit B-12) 1,000 mcg/mL injection solution RxNorm: 969138 Milliliter 03/03/2015 No longer Active cyanocobalamin (vit B-12) 1,000 mcg/mL injection solution RxNorm: 489782 Milliliter 02/18/2015 No longer Active cyanocobalamin (vit B-12) 1,000 mcg/mL injection solution RxNorm: 138661 Milliliter 02/04/2015 No longer Active cyanocobalamin (vit B-12) 1,000 mcg/mL injection solution RxNorm: 599482 Milliliter 01/22/2015 No longer Active cyanocobalamin (vit B-12) 1,000 mcg/mL injection solution RxNorm: 932644 Milliliter 01/08/2015 No longer Active cyanocobalamin (vit B-12) 1,000 mcg/mL injection solution RxNorm: 632923 Milliliter 12/25/2014 No longer Active cyanocobalamin (vit B-12) 1,000 mcg/mL injection solution RxNorm: 623545 Milliliter 12/10/2014 No longer Active cyanocobalamin (vit B-12) 1,000 mcg/mL injection solution RxNorm: 806678 Milliliter 11/26/2014 No longer Active cyanocobalamin (vit B-12) 1,000 mcg/mL injection kit RxNorm : 852726 Milliliter 11/12/2014 No longer Active cyanocobalamin (vit B-12) 1,000 mcg/mL injection solution RxNorm: 405773 Milliliter 10/28/2014 No longer Active Immunizations Vaccine Codes Date Status Influenza CVX: 141 03/22/2017 completed Pneumococcal (Adult) CVX: 33 05/25/2016 completed Influenza CVX: 141 03/15/2016 completed Assessments Condition Codes Effective Dates Laceration without foreign body of left forearm, initial encounter ICD-10: S51.812A ICD-9: 881.00 07/06/2017 Slow transit constipation ICD-10: K59.01 ICD-9: 564.01 07/06/2017 Cough ICD-10: R05 ICD-9: 786.2 07/06/2017 Atrophy of thyroid (acquired) ICD-10: E03.4 ICD-9: 244.8 07/06/2017 Candidiasis of skin and nail ICD-10: B37.2 ICD-9: 112.3 07/06/2017 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 ICD-9: 266.2 07/06/2017 Encounter for general adult medical examination with abnormal findings ICD-10: Z00.01 ICD-9: V70.0 06/05/2017 Chronic atrial fibrillation ICD-10: I48.2 ICD-9: 427.31 05/25/2017 Essential (primary) hypertension ICD-10: I10 ICD-9: 401.9 05/25/2017 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 ICD-9: 281.0 05/25/2017 Vitamin B12 deficiency anemia, unspecified ICD-10: D51.9 ICD-9: 281.1 05/16/2017 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 ICD-9: 281.1 05/01/2017 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 ICD-9: 733.6 03/23/2017 Other fatigue ICD-10: R53.83 ICD-9: 780.79 03/23/2017 Chest pain on breathing ICD-10: R07.1 ICD-9: 786.52 03/23/2017 Type 2 diabetes mellitus without complications ICD-10: E11.9 ICD-9: 250.00 03/23/2017 Encounter for immunization ICD-10: Z23 ICD-9: V04.81 03/22/2017 Headache ICD-10: R51 ICD-9: 784.0 01/23/2017 Dysuria ICD-10: R30.0 ICD-9: 788.1 11/07/2016 Low back pain ICD-10: M54.5 ICD-9: 724.2 11/02/2016 Pain in thoracic spine ICD-10: M54.6 ICD-9: 724.1 11/02/2016 Generalized abdominal pain ICD-10: R10.84 ICD-9: 789.07 09/29/2016 Encounter for general adult medical examination without abnormal findings ICD-10: Z00.00 ICD-9: V70.9 05/30/2016 Pain in right ankle and joints of right foot ICD-10: M25.571 ICD-9: 719.47 05/25/2016 Benign lipomatous neoplasm of skin and subcutaneous tissue of right leg ICD-10: D17.23 ICD-9: 214.1 05/25/2016 Encounter for immunization ICD-10: Z23 ICD-9: V03.82 05/25/2016 Encounter for screening mammogram for malignant neoplasm of breast ICD-10: Z12.31 ICD-9: V76.12 03/22/2016 Other chest pain ICD-10: R07.89 ICD-9: 786.59 02/25/2016 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.34 ICD-9: 327.24 01/25/2016 Hypothyroidism, unspecified ICD-10: E03.9 ICD-9: 244.9 01/25/2016 Other hypersomnia ICD-10: G47.19 ICD-9: 780.54 01/25/2016 Acute nasopharyngitis [common cold] ICD-10: J00 ICD-9: 460 11/11/2015 Other allergic rhinitis ICD-10: J30.89 ICD-9: 477.8 11/11/2015 Chronic fatigue, unspecified ICD-10: R53.82 ICD-9: 780.71 10/12/2015 Essential tremor ICD-10: G25.0 ICD-9: 333.1 10/12/2015 Abnormal levels of other serum enzymes ICD-10: R74.8 ICD-9: 790.5 09/03/2015 Actinic keratosis ICD-10: L57.0 ICD-9: 702.0 05/19/2015 Nausea ICD-10: R11.0 ICD-9: 787.02 05/19/2015 Cervicalgia ICD-10: M54.2 ICD-9: 723.1 05/12/2015 B12 deficiency ICD-9: 266.2 03/18/2015 Other screening mammogram ICD-9: V76.12 01/22/2015 Insomnia ICD-9: 780.52 01/13/2015 Afib ICD-9: 427.31 01/13/2015 Anxiety ICD-9: 300.00 01/13/2015 ESSENTIAL HYPERTENSION ICD-9: 401.9 01/13 Hypothyroidism ICD-9: 244.9 12/16/2014 DIABETES TYPE II ICD-9: 250.00 2014 Reason For Visit Reason For Visit Effective Dates Notes Hospital Follow Up 07/06/2017 Pneumonia, fluid overload Annual Medicare Wellness Exam 06/05/2017 hypertension 05/25/2017 resolved muscle weakness 03/23/2017 vaccination against influenza 03/22/2017 hypertension 01/23/2017 back pain 11/02/2016 hypertension 09/29/2016 hypertension 07/26/2016 Annual Medicare Wellness Exam 05/30/2016 insomnia 05/25/2016 vaccination against influenza 03/15/2016 chest pain/pressure 02/25/2016 insomnia 01/25/2016 cough 11/11/2015 insomnia 10/12/2015 headache 09/03/2015 headache 05/19/2015 headache 05/12/2015 she reports she can' t sleep headache 01/13/2015 she reports she can' t sleep hypertension 12/16/2014 Results Observation Observation Code Item Item Code Result Date Comp Metabolic Mex755 NA 141 mEq/L 01/23/2017 Comp Metabolic Hfk557 K 4.5 mEq/L 01/23/2017 Comp Metabolic Cvx564 CL 107 mEq/L 01/23/2017 Comp Metabolic Iof180 CO2 21.0 mEq/L 01/23/2017 Comp Metabolic Pvc418 ANION GAP 18 01/23/2017 Comp Metabolic Yjd024 GLUCOSE 138 mg/dL 01/23/2017 Comp Metabolic Lww231 Creat 1.0 mg/dL 01/23/2017 Comp Metabolic Mmp119 eGFR 56 ml/min/1.73m2 01/23/2017 Comp Metabolic Qnz478 BUN 26 mg/dL 01/23/2017 Comp Metabolic Xdf123 B/C Ratio 25.7 Ratio 01/23/2017 Comp Metabolic Azq219 CALCIUM 9.0 mg/dL 01/23/2017 Comp Metabolic Gkc106 ALK PHOS 37 U/L 01/23/2017 Comp Metabolic Mif286 AST(SGOT) 20 U/L 01/23/2017 Comp Metabolic Frr070 ALT(SGPT) 25 U/L 01/23/2017 Comp Metabolic Ukr680 BILI T 0.9 mg/dL 01/23/2017 Comp Metabolic Qav540 ALBUMIN 3.8 g/dL 01/23/2017 Comp Metabolic Lmt600 TPRO 6.5 g/dL 01/23/2017 Comp Metabolic Qvg738 GLOB 2.7 g/dL 01/23/2017 Comp Metabolic Pgh358 A/G Ratio 1.4 Ratio 01/23/2017 Comp Metabolic Fsb257 Osmo 288 mOsmo 01/23/2017 Free T4 Lev880 FREE T4 1.05 ng/dL 01/23/2017 %Hba1C Cnw604 % HbA1c 04250-9 6.1 % 01/23/2017 %Hba1C Exj709 Gluc Ave 128 mg/dL 01/23/2017 Tsh Ord6 hTSH II 1.68 uIU/mL 01/23/2017 Culture Urine [id number] URINE CULTURE SEE NOTES 11/10/2016 Culture Urine [id number] Continued Results 11/10/2016 Urine Culture Ucult Complete Growth of aerobe sent to ref lab 11/08/2016 Metabolic Ord15 NA 139 mEq/L 09/29/2016 Metabolic Ord15 K 4.2 mEq/L 09/29/2016 Metabolic Ord15 CL 106 mEq/L 09/29/2016 Metabolic Ord15 CO2 23.0 mEq/L 09/29/2016 Metabolic Ord15 GLUCOSE 105 mg/dL 09/29/2016 Metabolic Ord15 BUN 21 mg/dL 09/29/2016 Metabolic Ord15 Creat 1.0 mg/dL 09/29/2016 Metabolic Ord15 B/C Ratio 20.2 Ratio 09/29/2016 Metabolic Ord15 eGFR 54 ml/min/1.73m2 09/29/2016 Metabolic Ord15 Osmo 281 mOsmo 09/29/2016 Metabolic Ord15 ANION GAP 14 09/29/2016 Metabolic Ord15 CALCIUM 9.3 mg/dL 09/29/2016 Free T4 Uie565 FREE T4 0.99 ng/dL 09/07/2016 Cbc With Differential Ord2 WBC 6.40 K/ul 09/07/2016 Cbc With Differential Ord2 RBC 4.70 M/ul 09/07/2016 Cbc With Differential Ord2 HGB 14.1 g/dl 09/07/2016 Cbc With Differential Ord2 Neut% 60.3 % 09/07/2016 Cbc With Differential Ord2 HCT 43.1 % 09/07/2016 Cbc With Differential Ord2 Lymph% 27.3 % 09/07/2016 Cbc With Differential Ord2 MCV 91.7 fl 09/07/2016 Cbc With Differential Ord2 Stephenson% 9.8 % 09/07/2016 Cbc With Differential Ord2 MCH 30.0 pg 09/07/2016 Cbc With Differential Ord2 MCHC 32.7 pg 09/07/2016 Cbc With Differential Ord2 Eos% 2.0 % 09/07/2016 Cbc With Differential Ord2 PLT 198 K/ul 09/07/2016 Cbc With Differential Ord2 Baso% 0.6 % 09/07/2016 Cbc With Differential Ord2 Neut ABS# 3.85 K/ul 09/07/2016 Cbc With Differential Ord2 RDW 14.5 % 09/07/2016 Cbc With Differential Ord2 Lymph ABS# 1.75 K/ul 09/07/2016 Cbc With Differential Ord2 Stephenson ABS# 0.6 K/ul 09/07/2016 Cbc With Differential Ord2 Eos ABS# 0.1 K/ul 09/07/2016 Cbc With Differential Ord2 Baso ABS# 0.0 K/ul 09/07/2016 Tsh Ord6 hTSH II 1.41 uIU/mL 09/07/2016 Culture Urine [id number] URINE CULTURE SEE NOTES 06/27/2016 Lipid Ord30 CHOL 196 mg/dL 06/22/2016 Lipid Ord30 HDL 63.0 mg/dl 06/22/2016 Lipid Ord30 TRIG 154 mg/dL 06/22/2016 Lipid Ord30 LDL 102 mg/dL 06/22/2016 Lipid Ord30 C/HDL 3.1 Ratio 06/22/2016 Hepatic Gpn200 ALBUMIN 4.2 g/dL 06/22/2016 Hepatic Zto322 TPRO 7.0 g/dL 06/22/2016 Hepatic Wsd133 GLOB 2.8 g/dL 06/22/2016 Hepatic Kgw183 A/G Ratio 1.5 Ratio 06/22/2016 Hepatic Vuq216 ALK PHOS 54 U/L 06/22/2016 Hepatic Del677 ALT(SGPT) 30 U/L 06/22/2016 Hepatic Fwi834 AST(SGOT) 24 U/L 06/22/2016 Hepatic Blz491 BILI T 1.1 mg/dL 06/22/2016 Hepatic Zbw154 BILI D 0.2 mg/dL 06/22/2016 Hepatic Xkm806 BILI I 0.9 mg/dL 06/22/2016 Comp Metabolic Qvz661 NA 139 mEq/L 06/14/2016 Comp Metabolic Lcj641 K 4.6 mEq/L 06/14/2016 Comp Metabolic Zyo820 CL 108 mEq/L 06/14/2016 Comp Metabolic Hnn528 CO2 22.0 mEq/L 06/14/2016 Comp Metabolic Rht398 ANION GAP 14 06/14/2016 Comp Metabolic Pka198 GLUCOSE 114 mg/dL 06/14/2016 Comp Metabolic Qnz918 Creat 1.2 mg/dL 06/14/2016 Comp Metabolic Mme931 eGFR 48 ml/min/1.73m2 06/14/2016 Comp Metabolic Sdj470 BUN 24 mg/dL 06/14/2016 Comp Metabolic Xjd375 B/C Ratio 20.9 Ratio 06/14/2016 Comp Metabolic Hsk685 CALCIUM 9.9 mg/dL 06/14/2016 Comp Metabolic Urz089 ALK PHOS 47 U/L 06/14/2016 Comp Metabolic Ksh995 AST(SGOT) 28 U/L 06/14/2016 Comp Metabolic Xei734 ALT(SGPT) 32 U/L 06/14/2016 Comp Metabolic Ysy459 BILI T 0.9 mg/dL 06/14/2016 Comp Metabolic Yqf991 ALBUMIN 4.1 g/dL 06/14/2016 Comp Metabolic Lba970 TPRO 6.9 g/dL 06/14/2016 Comp Metabolic Urx889 GLOB 2.8 g/dL 06/14/2016 Comp Metabolic Jcq598 A/G Ratio 1.5 Ratio 06/14/2016 Comp Metabolic Iig248 Osmo 282 mOsmo 06/14/2016 Tsh Ord6 hTSH II 1.26 uIU/mL 06/14/2016 Free T4 Jyf966 FREE T4 1.09 ng/dL 06/14/2016 Tsh Ord6 hTSH II 0.28 uIU/mL 02/02/2016 Digoxin Ord9 DIGOXIN 0.7 NG/ML 02/02/2016 Free T4 Fer522 FREE T4 1.23 ng/dL 02/02/2016 Hepatic Pfu427 ALBUMIN 4.0 g/dL 02/02/2016 Hepatic Yjb675 TPRO 7.0 g/dL 02/02/2016 Hepatic Uwa867 GLOB 3.0 g/dL 02/02/2016 Hepatic Tiq075 A/G Ratio 1.3 Ratio 02/02/2016 Hepatic Jbr095 ALK PHOS 57 U/L 02/02/2016 Hepatic Koy057 ALT(SGPT) 62 U/L 02/02/2016 Hepatic Bth450 AST(SGOT) 54 U/L 02/02/2016 Hepatic Sxz777 BILI T 0.8 mg/dL 02/02/2016 Hepatic Kmu524 BILI D 0.2 mg/dL 02/02/2016 Hepatic Jcl516 BILI I 0.6 mg/dL 02/02/2016 Urine Culture Ucult Preliminary No Growth Day 1 11/25/2015 Urine Culture Ucult Complete No Growth Day 2 11/25/2015 Hepatic Jcu889 ALBUMIN 3.9 g/dL 11/11/2015 Hepatic Nwv038 TPRO 7.0 g/dL 11/11/2015 Hepatic Xhz322 GLOB 3.1 g/dL 11/11/2015 Hepatic Zkf553 A/G Ratio 1.3 Ratio 11/11/2015 Hepatic Beo086 ALK PHOS 63 U/L 11/11/2015 Hepatic Rhx325 ALT(SGPT) 107 U/L 11/11/2015 Hepatic Oef004 AST(SGOT) 101 U/L 11/11/2015 Hepatic Hvn628 BILI T 0.6 mg/dL 11/11/2015 Hepatic Fvf151 BILI D 0.1 mg/dL 11/11/2015 Hepatic Fpk393 BILI I 0.5 mg/dL 11/11/2015 Comp Metabolic Otj329 NA 138 mEq/L 10/29/2015 Comp Metabolic Dqv316 K 5.0 mEq/L 10/29/2015 Comp Metabolic Ldz496 CL 105 mEq/L 10/29/2015 Comp Metabolic Mfw401 CO2 23.0 mEq/L 10/29/2015 Comp Metabolic Rqs131 ANION GAP 15 10/29/2015 Comp Metabolic Mtu971 GLUCOSE 105 mg/dL 10/29/2015 Comp Metabolic Hxy781 Creat 1.0 mg/dL 10/29/2015 Comp Metabolic Ynx350 eGFR 55 ml/min/1.73m2 10/29/2015 Comp Metabolic Tsq948 BUN 20 mg/dL 10/29/2015 Comp Metabolic Req511 B/C Ratio 19.4 Ratio 10/29/2015 Comp Metabolic Rgb755 CALCIUM 8.8 mg/dL 10/29/2015 Comp Metabolic Zut405 ALK PHOS 56 U/L 10/29/2015 Comp Metabolic Dmf676 AST(SGOT) 66 U/L 10/29/2015 Comp Metabolic Blj210 ALT(SGPT) 78 U/L 10/29/2015 Comp Metabolic Jtr872 BILI T 0.7 mg/dL 10/29/2015 Comp Metabolic Luo823 ALBUMIN 3.6 g/dL 10/29/2015 Comp Metabolic Bza674 TPRO 6.6 g/dL 10/29/2015 Comp Metabolic Jsq815 GLOB 3.0 g/dL 10/29/2015 Comp Metabolic Igl739 A/G Ratio 1.2 Ratio 10/29/2015 Comp Metabolic Moo870 Osmo 279 mOsmo 10/29/2015 Comp Metabolic Jyc680 NA 136 mEq/L 09/03/2015 Comp Metabolic Bje590 K 4.4 mEq/L 09/03/2015 Comp Metabolic Ptc993 CL 103 mEq/L 09/03/2015 Comp Metabolic Rcw245 CO2 24.0 mEq/L 09/03/2015 Comp Metabolic Ybq052 ANION GAP 13 09/03/2015 Comp Metabolic Epz383 GLUCOSE 87 mg/dL 09/03/2015 Comp Metabolic Tra216 Creat 1.1 mg/dL 09/03/2015 Comp Metabolic Gbd769 eGFR 53 ml/min/1.73m2 09/03/2015 Comp Metabolic Glg606 BUN 17 mg/dL 09/03/2015 Comp Metabolic Bgi014 B/C Ratio 16.2 Ratio 09/03/2015 Comp Metabolic Kmj413 CALCIUM 9.0 mg/dL 09/03/2015 Comp Metabolic Uow069 ALK PHOS 55 U/L 09/03/2015 Comp Metabolic Rmk561 AST(SGOT) 83 U/L 09/03/2015 Comp Metabolic Agr259 ALT(SGPT) 126 U/L 09/03/2015 Comp Metabolic Qgy652 BILI T 0.9 mg/dL 09/03/2015 Comp Metabolic Fsq307 ALBUMIN 3.9 g/dL 09/03/2015 Comp Metabolic Lsb257 TPRO 6.8 g/dL 09/03/2015 Comp Metabolic Dnz116 GLOB 2.9 g/dL 09/03/2015 Comp Metabolic Vrq310 A/G Ratio 1.4 Ratio 09/03/2015 Comp Metabolic Kym272 Osmo 273 mOsmo 09/03/2015 Total T3 Ord42 TT3 0.6 ng/ml 07/09/2015 Tsh Ord6 hTSH II 1.62 uIU/mL 07/09/2015 Total T3 Ord42 TT3 0.5 ng/ml 04/02/2015 Free T4 Boz797 FREE T4 1.23 ng/dL 04/02/2015 Tsh Ord6 hTSH II 5.95 uIU/mL 04/02/2015 Review of Systems System Result Effective Dates Constitutional No recent illness 2017 Constitutional No chills 07/06/2017 Constitutional No diaphoresis 07/06/2017 Constitutional No fever 07/06/2017 Eyes No blindness 07/06/2017 Ears/Nose/Throat/Neck No nasal discharge 07/06/2017 Cardiovascular No chest pain/pressure Cardiovascular No dyspnea 07/06/2017 Respiratory cough 07/06/2017 Respiratory No dyspnea 07/06/2017 Neurologic No alteration of consciousness 07/06/2017 Neurologic No mental status change 2017 Ears/Nose/Throat/Neck oral lesion 2017 Dermatologic sores 07/06/2017 Psychiatric anxiety 07/06/2017 Psychiatric depression 07/06/2017 Gastrointestinal No hemorrhoids 2017 Gastrointestinal No abdominal pain 2017 Gastrointestinal No constipation 2017 Gastrointestinal No diarrhea 07/06/2017 Gastrointestinal No gastroesophageal reflux 07/06/2017 Gastrointestinal No melena 07/06/2017 Gastrointestinal No nausea 07/06/2017 Gastrointestinal No vomiting 07/06/2017 Musculoskeletal No stiffness 07/06/2017 Musculoskeletal No swelling 07/06/2017 Musculoskeletal No muscle weakness 2017 Musculoskeletal No myalgias 07/06/2017 Constitutional No recent illness 2016 Constitutional No chills 06/05/2017 Constitutional No diaphoresis 06/05/2017 Constitutional No fever 06/05/2017 Eyes No eye erythema 06/05/2017 Ears/Nose/Throat/Neck No nasal discharge 06/05/2017 Cardiovascular No chest pain/pressure Cardiovascular No dyspnea 06/05/2017 Respiratory No cough 06/05/2017 Respiratory No dyspnea 06/05/2017 Neurologic No alteration of consciousness 06/05/2017 Neurologic No mental status change 2016 Constitutional No recent illness 2016 Constitutional No chills 05/25/2017 Constitutional fatigue 05/25/2017 Constitutional No fever 05/25/2017 Constitutional insomnia 05/25/2017 Constitutional malaise 05/25/2017 Ears/Nose/Throat/Neck No dental pain 12/2016 Ears/Nose/Throat/Neck No dizziness 2016 Ears/Nose/Throat/Neck No dysphagia 2016 Ears/Nose/Throat/Neck No headache 2016 Ears/Nose/Throat/Neck No hearing loss 12/2016 Ears/Nose/Throat/Neck No nasal allergies 05/25/2017 Ears/Nose/Throat/Neck No sore throat 12/2016 Ears/Nose/Throat/Neck No postnasal drip 05/25/2017 Ears/Nose/Throat/Neck No sinus congestion 05/25/2017 Cardiovascular No dyspnea 05/25/2017 Cardiovascular No edema 05/25/2017 Cardiovascular No exercise intolerance Cardiovascular No fatigue 05/25/2017 Cardiovascular No near-syncope/dizziness 05/25/2017 Respiratory No chest tightness 2016 Respiratory No cough 05/25/2017 Respiratory daytime hypersomnolence 05/25 Respiratory No dyspnea 05/25/2017 Respiratory No pedal edema 05/25/2017 Gastrointestinal No constipation 2016 Gastrointestinal No diarrhea 05/25/2017 Gastrointestinal No gastroesophageal reflux 05/25/2017 Gastrointestinal No vomiting 05/25/2017 Genitourinary/Nephrology No dysuria 05/25 Genitourinary/Nephrology No nocturia 12/2016 Genitourinary/Nephrology No urinary incontinence 05/25/2017 Musculoskeletal stiffness 05/25/2017 Musculoskeletal No swelling 05/25/2017 Musculoskeletal muscle weakness 2016 Musculoskeletal myalgias 05/25/2017 Dermatologic mole change 05/25/2017 Dermatologic sores 05/25/2017 Neurologic No dizziness 05/25/2017 Neurologic No headache 05/25/2017 Neurologic No neck pain 05/25/2017 Neurologic No syncope 05/25/2017 Psychiatric No anxiety 05/25/2017 Psychiatric No depression 05/25/2017 Eyes No blindness 05/25/2017 Eyes No vision change 05/25/2017 Musculoskeletal arthralgia(s) 05/25/2017 Musculoskeletal shoulder pain 05/25/2017 Constitutional No recent illness 2016 Constitutional No chills 03/23/2017 Constitutional fatigue 03/23/2017 Constitutional No fever 03/23/2017 Constitutional insomnia 03/23/2017 Constitutional malaise 03/23/2017 Ears/Nose/Throat/Neck No dental pain 10/2016 Ears/Nose/Throat/Neck No dizziness 2016 Ears/Nose/Throat/Neck No dysphagia 2016 Ears/Nose/Throat/Neck No headache 2016 Ears/Nose/Throat/Neck No hearing loss 10/2016 Ears/Nose/Throat/Neck No nasal allergies 03/23/2017 Ears/Nose/Throat/Neck No sore throat 10/2016 Ears/Nose/Throat/Neck No postnasal drip 03/23/2017 Ears/Nose/Throat/Neck No sinus congestion 03/23/2017 Cardiovascular chest pain/pressure 2016 Cardiovascular No dyspnea 03/23/2017 Cardiovascular No edema 03/23/2017 Cardiovascular No exercise intolerance Cardiovascular No fatigue 03/23/2017 Cardiovascular No near-syncope/dizziness 03/23/2017 Respiratory No chest tightness 2016 Respiratory No cough 03/23/2017 Respiratory daytime hypersomnolence 03/23 Respiratory No dyspnea 03/23/2017 Respiratory No pedal edema 03/23/2017 Gastrointestinal abdominal pain 2016 Gastrointestinal No constipation 2016 Gastrointestinal No diarrhea 03/23/2017 Gastrointestinal No gastroesophageal reflux 03/23/2017 Gastrointestinal nausea 03/23/2017 Gastrointestinal No vomiting 03/23/2017 Genitourinary/Nephrology No dysuria 03/23 Genitourinary/Nephrology No nocturia 10/2016 Genitourinary/Nephrology No urinary incontinence 03/23/2017 Musculoskeletal stiffness 03/23/2017 Musculoskeletal No swelling 03/23/2017 Musculoskeletal muscle weakness 2016 Musculoskeletal myalgias 03/23/2017 Dermatologic mole change 03/23/2017 Dermatologic sores 03/23/2017 Neurologic No dizziness 03/23/2017 Neurologic No headache 03/23/2017 Neurologic No neck pain 03/23/2017 Neurologic No syncope 03/23/2017 Psychiatric No anxiety 03/23/2017 Psychiatric No depression 03/23/2017 Constitutional No recent illness 2016 Constitutional No chills 01/23/2017 Constitutional fatigue 01/23/2017 Constitutional No fever 01/23/2017 Constitutional insomnia 01/23/2017 Constitutional No malaise 01/23/2017 Eyes No blindness 01/23/2017 Eyes No vision change 01/23/2017 Ears/Nose/Throat/Neck No dental pain 12/2016 Ears/Nose/Throat/Neck No dizziness 2016 Ears/Nose/Throat/Neck No dysphagia 2016 Ears/Nose/Throat/Neck No headache 2016 Ears/Nose/Throat/Neck No hearing loss 12/2016 Ears/Nose/Throat/Neck No nasal allergies 01/23/2017 Ears/Nose/Throat/Neck No sore throat 12/2016 Ears/Nose/Throat/Neck No postnasal drip 01/23/2017 Ears/Nose/Throat/Neck No sinus congestion 01/23/2017 Cardiovascular No chest pain/pressure 12/2016 Cardiovascular No dyspnea 01/23/2017 Cardiovascular No edema 01/23/2017 Cardiovascular No exercise intolerance Cardiovascular No fatigue 01/23/2017 Cardiovascular No near-syncope/dizziness 01/23/2017 Respiratory No chest tightness 2016 Respiratory No cough 01/23/2017 Respiratory daytime hypersomnolence 01/23 Respiratory No dyspnea 01/23/2017 Respiratory No pedal edema 01/23/2017 Gastrointestinal abdominal pain 2016 Gastrointestinal No constipation 2016 Gastrointestinal No diarrhea 01/23/2017 Gastrointestinal No gastroesophageal reflux 01/23/2017 Gastrointestinal nausea 01/23/2017 Gastrointestinal No vomiting 01/23/2017 Genitourinary/Nephrology No dysuria 01/23 Genitourinary/Nephrology No nocturia 12/2016 Genitourinary/Nephrology No urinary incontinence 01/23/2017 Musculoskeletal stiffness 01/23/2017 Musculoskeletal No swelling 01/23/2017 Musculoskeletal No muscle weakness 2016 Musculoskeletal No myalgias 01/23/2017 Dermatologic mole change 01/23/2017 Dermatologic sores 01/23/2017 Neurologic No dizziness 01/23/2017 Neurologic No headache 01/23/2017 Neurologic No neck pain 01/23/2017 Neurologic No syncope 01/23/2017 Psychiatric No anxiety 01/23/2017 Psychiatric No depression 01/23/2017 Constitutional No recent illness 2016 Constitutional No chills 11/02/2016 Constitutional No fever 11/02/2016 Eyes No eye erythema 11/02/2016 Ears/Nose/Throat/Neck No nasal discharge 11/02/2016 Cardiovascular No chest pain/pressure Cardiovascular No dyspnea 11/02/2016 Respiratory No cough 11/02/2016 Respiratory No dyspnea 11/02/2016 Musculoskeletal joint complaint 2016 Neurologic No alteration of consciousness 11/02/2016 Neurologic No mental status change 2016 Musculoskeletal back pain 11/02/2016 Musculoskeletal arthralgia(s) 11/02/2016 Musculoskeletal stiffness 11/02/2016 Musculoskeletal muscle weakness 2016 Constitutional No recent illness 2016 Constitutional No chills 09/29/2016 Constitutional fatigue 09/29/2016 Constitutional No fever 09/29/2016 Constitutional insomnia 09/29/2016 Constitutional No malaise 09/29/2016 Eyes No blindness 09/29/2016 Eyes No vision change 09/29/2016 Ears/Nose/Throat/Neck No dental pain Ears/Nose/Throat/Neck No dizziness 2016 Ears/Nose/Throat/Neck No dysphagia 2016 Ears/Nose/Throat/Neck No headache 2016 Ears/Nose/Throat/Neck No hearing loss Ears/Nose/Throat/Neck No nasal allergies 09/29/2016 Ears/Nose/Throat/Neck No sore throat Ears/Nose/Throat/Neck No postnasal drip 09/29/2016 Ears/Nose/Throat/Neck No sinus congestion 09/29/2016 Cardiovascular No chest pain/pressure Cardiovascular No dyspnea 09/29/2016 Cardiovascular No edema 09/29/2016 Cardiovascular No exercise intolerance Cardiovascular No fatigue 09/29/2016 Cardiovascular No near-syncope/dizziness 09/29/2016 Respiratory No chest tightness 2016 Respiratory No cough 09/29/2016 Respiratory daytime hypersomnolence 09/29 Respiratory No dyspnea 09/29/2016 Respiratory No pedal edema 09/29/2016 Gastrointestinal abdominal pain 2016 Gastrointestinal No constipation 2016 Gastrointestinal No diarrhea 09/29/2016 Gastrointestinal No gastroesophageal reflux 09/29/2016 Gastrointestinal nausea 09/29/2016 Gastrointestinal No vomiting 09/29/2016 Genitourinary/Nephrology No dysuria 09/29 Genitourinary/Nephrology No nocturia Genitourinary/Nephrology No urinary incontinence 09/29/2016 Musculoskeletal stiffness 09/29/2016 Musculoskeletal No swelling 09/29/2016 Musculoskeletal No muscle weakness 2016 Musculoskeletal No myalgias 09/29/2016 Dermatologic mole change 09/29/2016 Dermatologic sores 09/29/2016 Neurologic No dizziness 09/29/2016 Neurologic No headache 09/29/2016 Neurologic No neck pain 09/29/2016 Neurologic No syncope 09/29/2016 Psychiatric No anxiety 09/29/2016 Psychiatric No depression 09/29/2016 Constitutional No recent illness 2016 Constitutional No chills 07/26/2016 Constitutional No fever 07/26/2016 Eyes No blindness 07/26/2016 Eyes No vision change 07/26/2016 Ears/Nose/Throat/Neck No nasal allergies 07/26/2016 Ears/Nose/Throat/Neck No nasal discharge 07/26/2016 Ears/Nose/Throat/Neck No postnasal drip 07/26/2016 Ears/Nose/Throat/Neck No sinus congestion 07/26/2016 Ears/Nose/Throat/Neck No sore throat 12/2016 Cardiovascular No chest pain/pressure 12/2016 Cardiovascular No dyspnea 07/26/2016 Respiratory No chest congestion 2016 Respiratory No cough 07/26/2016 Respiratory No dyspnea 07/26/2016 Gastrointestinal No abdominal pain 2016 Gastrointestinal No constipation 2016 Gastrointestinal No diarrhea 07/26/2016 Gastrointestinal No nausea 07/26/2016 Gastrointestinal No vomiting 07/26/2016 Musculoskeletal No joint complaint 2016 Dermatologic No rash 07/26/2016 Neurologic No alteration of consciousness 07/26/2016 Neurologic No mental status change 2016 Cardiovascular hypertension 07/26/2016 Constitutional No recent illness 2015 Constitutional No chills 05/30/2016 Constitutional No fever 05/30/2016 Eyes No eye erythema 05/30/2016 Eyes No vision change 05/30/2016 Ears/Nose/Throat/Neck No nasal allergies 05/30/2016 Ears/Nose/Throat/Neck No sore throat 05/2016 Ears/Nose/Throat/Neck No postnasal drip 05/30/2016 Ears/Nose/Throat/Neck No sinus congestion 05/30/2016 Cardiovascular No chest pain/pressure 05/2016 Cardiovascular No dyspnea 05/30/2016 Respiratory No cough 05/30/2016 Respiratory No dyspnea 05/30/2016 Gastrointestinal No constipation 2015 Gastrointestinal No diarrhea 05/30/2016 Gastrointestinal No vomiting 05/30/2016 Ears/Nose/Throat/Neck No nasal discharge 05/30/2016 Respiratory No chest congestion 2015 Gastrointestinal No abdominal pain 2015 Gastrointestinal No nausea 05/30/2016 Musculoskeletal No joint complaint 2015 Dermatologic No rash 05/30/2016 Neurologic No alteration of consciousness 05/30/2016 Neurologic No mental status change 2015 Constitutional No recent illness 2015 Constitutional No chills 05/25/2016 Constitutional No fever 05/25/2016 Eyes No blindness 05/25/2016 Eyes No vision change 05/25/2016 Ears/Nose/Throat/Neck No nasal allergies 05/25/2016 Ears/Nose/Throat/Neck No nasal discharge 05/25/2016 Ears/Nose/Throat/Neck No postnasal drip 05/25/2016 Ears/Nose/Throat/Neck No sinus congestion 05/25/2016 Ears/Nose/Throat/Neck No sore throat 12/2015 Cardiovascular No chest pain/pressure 12/2015 Cardiovascular No dyspnea 05/25/2016 Respiratory No chest congestion 2015 Respiratory No cough 05/25/2016 Respiratory No dyspnea 05/25/2016 Gastrointestinal No abdominal pain 2015 Gastrointestinal No constipation 2015 Gastrointestinal No diarrhea 05/25/2016 Gastrointestinal No nausea 05/25/2016 Gastrointestinal No vomiting 05/25/2016 Musculoskeletal No joint complaint 2015 Dermatologic No rash 05/25/2016 Neurologic No alteration of consciousness 05/25/2016 Neurologic No mental status change 2015 Constitutional recent illness 02/25/2016 Constitutional No fever 02/25/2016 Eyes No eye erythema 02/25/2016 Eyes No vision change 02/25/2016 Ears/Nose/Throat/Neck No nasal allergies 02/25/2016 Cardiovascular chest pain/pressure 2015 Respiratory No cough 02/25/2016 Respiratory No dyspnea 02/25/2016 Gastrointestinal No constipation 2015 Gastrointestinal No diarrhea 02/25/2016 Gastrointestinal nausea 02/25/2016 Gastrointestinal No vomiting 02/25/2016 Respiratory No chest congestion 2015 Musculoskeletal No joint complaint 2015 Dermatologic No rash 02/25/2016 Neurologic No alteration of consciousness 02/25/2016 Neurologic No mental status change 2015 Constitutional No recent illness 2015 Constitutional No chills 01/25/2016 Constitutional fatigue 01/25/2016 Constitutional No fever 01/25/2016 Constitutional insomnia 01/25/2016 Constitutional No malaise 01/25/2016 Eyes No blindness 01/25/2016 Eyes No vision change 01/25/2016 Ears/Nose/Throat/Neck No dental pain 01/2016 Ears/Nose/Throat/Neck No dizziness 2015 Ears/Nose/Throat/Neck No dysphagia 2015 Ears/Nose/Throat/Neck No headache 2015 Ears/Nose/Throat/Neck No hearing loss 01/2016 Ears/Nose/Throat/Neck No nasal allergies 01/25/2016 Ears/Nose/Throat/Neck No sore throat 01/2016 Ears/Nose/Throat/Neck No postnasal drip 01/25/2016 Ears/Nose/Throat/Neck No sinus congestion 01/25/2016 Cardiovascular No chest pain/pressure 01/2016 Cardiovascular No dyspnea 01/25/2016 Cardiovascular No edema 01/25/2016 Cardiovascular No exercise intolerance Cardiovascular No fatigue 01/25/2016 Cardiovascular No near-syncope/dizziness 01/25/2016 Respiratory No chest tightness 2015 Respiratory No cough 01/25/2016 Respiratory daytime hypersomnolence 01/24 Respiratory No dyspnea 01/25/2016 Respiratory No pedal edema 01/25/2016 Gastrointestinal abdominal pain 2015 Gastrointestinal No constipation 2015 Gastrointestinal No diarrhea 01/25/2016 Gastrointestinal No gastroesophageal reflux 01/25/2016 Gastrointestinal nausea 01/25/2016 Gastrointestinal No vomiting 01/25/2016 Genitourinary/Nephrology No dysuria 01/24 Genitourinary/Nephrology No nocturia 01/2016 Genitourinary/Nephrology No urinary incontinence 01/25/2016 Musculoskeletal stiffness 01/25/2016 Musculoskeletal No swelling 01/25/2016 Musculoskeletal No muscle weakness 2015 Musculoskeletal No myalgias 01/25/2016 Dermatologic mole change 01/25/2016 Dermatologic sores 01/25/2016 Neurologic No dizziness 01/25/2016 Neurologic No headache 01/25/2016 Neurologic No neck pain 01/25/2016 Neurologic No syncope 01/25/2016 Psychiatric No anxiety 01/25/2016 Psychiatric No depression 01/25/2016 Constitutional chills 11/11/2015 Constitutional fatigue 11/11/2015 Constitutional No fever 11/11/2015 Constitutional No malaise 11/11/2015 Eyes No eye erythema 11/11/2015 Eyes No vision change 11/11/2015 Ears/Nose/Throat/Neck postnasal drip Ears/Nose/Throat/Neck sinus congestion Cardiovascular No chest pain/pressure Cardiovascular No dyspnea 11/11/2015 Respiratory cough 11/11/2015 Psychiatric No anxiety 11/11/2015 Psychiatric No depression 11/11/2015 Constitutional recent illness 11/11/2015 Ears/Nose/Throat/Neck nasal allergies Ears/Nose/Throat/Neck nasal discharge Ears/Nose/Throat/Neck otalgia 11/11/2015 Respiratory chest congestion 11/11/2015 Respiratory productive sputum 11/11/2015 Respiratory No dyspnea 11/11/2015 Musculoskeletal No joint complaint 2015 Dermatologic No rash 11/11/2015 Neurologic No alteration of consciousness 11/11/2015 Neurologic No mental status change 2015 Constitutional No recent illness 2015 Constitutional No chills 10/12/2015 Constitutional fatigue 10/12/2015 Constitutional No fever 10/12/2015 Constitutional insomnia 10/12/2015 Constitutional No malaise 10/12/2015 Eyes No blindness 10/12/2015 Eyes No vision change 10/12/2015 Ears/Nose/Throat/Neck No dental pain Ears/Nose/Throat/Neck No dizziness 2015 Ears/Nose/Throat/Neck No dysphagia 2015 Ears/Nose/Throat/Neck No headache 2015 Ears/Nose/Throat/Neck No hearing loss Ears/Nose/Throat/Neck No nasal allergies 10/12/2015 Ears/Nose/Throat/Neck No sore throat Ears/Nose/Throat/Neck No postnasal drip 10/12/2015 Ears/Nose/Throat/Neck No sinus congestion 10/12/2015 Cardiovascular No chest pain/pressure Cardiovascular No dyspnea 10/12/2015 Cardiovascular No edema 10/12/2015 Cardiovascular No exercise intolerance Cardiovascular No fatigue 10/12/2015 Cardiovascular No near-syncope/dizziness 10/12/2015 Respiratory No chest tightness 2015 Respiratory No cough 10/12/2015 Respiratory No dyspnea 10/12/2015 Respiratory No pedal edema 10/12/2015 Gastrointestinal abdominal pain 2015 Gastrointestinal No constipation 2015 Gastrointestinal No diarrhea 10/12/2015 Gastrointestinal No gastroesophageal reflux 10/12/2015 Gastrointestinal nausea 10/12/2015 Gastrointestinal No vomiting 10/12/2015 Genitourinary/Nephrology No dysuria 10/11 Genitourinary/Nephrology No nocturia Genitourinary/Nephrology No urinary incontinence 10/12/2015 Musculoskeletal stiffness 10/12/2015 Musculoskeletal No swelling 10/12/2015 Musculoskeletal No muscle weakness 2015 Musculoskeletal No myalgias 10/12/2015 Dermatologic mole change 10/12/2015 Dermatologic sores 10/12/2015 Neurologic No dizziness 10/12/2015 Neurologic No headache 10/12/2015 Neurologic No neck pain 10/12/2015 Neurologic No syncope 10/12/2015 Psychiatric No anxiety 10/12/2015 Psychiatric No depression 10/12/2015 Respiratory daytime hypersomnolence 10/11 Constitutional No recent illness 2015 Constitutional No chills 09/03/2015 Constitutional No fatigue 09/03/2015 Constitutional No fever 09/03/2015 Constitutional No insomnia 09/03/2015 Constitutional No malaise 09/03/2015 Eyes No blindness 09/03/2015 Eyes No vision change 09/03/2015 Ears/Nose/Throat/Neck No dental pain Ears/Nose/Throat/Neck No dizziness 2015 Ears/Nose/Throat/Neck No dysphagia 2015 Ears/Nose/Throat/Neck No headache 2015 Ears/Nose/Throat/Neck No hearing loss Ears/Nose/Throat/Neck No nasal allergies 09/03/2015 Ears/Nose/Throat/Neck No sore throat Ears/Nose/Throat/Neck No postnasal drip 09/03/2015 Ears/Nose/Throat/Neck No sinus congestion 09/03/2015 Cardiovascular No chest pain/pressure Cardiovascular No dyspnea 09/03/2015 Cardiovascular No edema 09/03/2015 Cardiovascular No exercise intolerance Cardiovascular No fatigue 09/03/2015 Cardiovascular No near-syncope/dizziness 09/03/2015 Respiratory No chest tightness 2015 Respiratory No cough 09/03/2015 Respiratory No dyspnea 09/03/2015 Respiratory No pedal edema 09/03/2015 Gastrointestinal abdominal pain 2015 Gastrointestinal No constipation 2015 Gastrointestinal No diarrhea 09/03/2015 Gastrointestinal No gastroesophageal reflux 09/03/2015 Gastrointestinal nausea 09/03/2015 Gastrointestinal No vomiting 09/03/2015 Genitourinary/Nephrology No dysuria 09/02 Genitourinary/Nephrology No nocturia Genitourinary/Nephrology No urinary incontinence 09/03/2015 Musculoskeletal stiffness 09/03/2015 Musculoskeletal No swelling 09/03/2015 Musculoskeletal No muscle weakness 2015 Musculoskeletal No myalgias 09/03/2015 Dermatologic mole change 09/03/2015 Dermatologic sores 09/03/2015 Neurologic No dizziness 09/03/2015 Neurologic No headache 09/03/2015 Neurologic No neck pain 09/03/2015 Neurologic No syncope 09/03/2015 Psychiatric No anxiety 09/03/2015 Psychiatric No depression 09/03/2015 Constitutional No recent illness 2014 Constitutional No chills 05/19/2015 Constitutional No fatigue 05/19/2015 Constitutional No fever 05/19/2015 Constitutional No insomnia 05/19/2015 Constitutional No malaise 05/19/2015 Eyes No blindness 05/19/2015 Eyes No vision change 05/19/2015 Ears/Nose/Throat/Neck No dental pain 06/2014 Ears/Nose/Throat/Neck No dizziness 2014 Ears/Nose/Throat/Neck No dysphagia 2014 Ears/Nose/Throat/Neck No headache 2014 Ears/Nose/Throat/Neck No hearing loss 06/2014 Ears/Nose/Throat/Neck No nasal allergies 05/19/2015 Ears/Nose/Throat/Neck No sore throat 06/2014 Ears/Nose/Throat/Neck No postnasal drip 05/19/2015 Ears/Nose/Throat/Neck No sinus congestion 05/19/2015 Cardiovascular No chest pain/pressure 06/2014 Cardiovascular No dyspnea 05/19/2015 Cardiovascular No edema 05/19/2015 Cardiovascular No exercise intolerance Cardiovascular No fatigue 05/19/2015 Cardiovascular No near-syncope/dizziness 05/19/2015 Respiratory No chest tightness 2014 Respiratory No cough 05/19/2015 Respiratory No dyspnea 05/19/2015 Respiratory No pedal edema 05/19/2015 Gastrointestinal abdominal pain 2014 Gastrointestinal No constipation 2014 Gastrointestinal No diarrhea 05/19/2015 Gastrointestinal No gastroesophageal reflux 05/19/2015 Gastrointestinal nausea 05/19/2015 Gastrointestinal No vomiting 05/19/2015 Genitourinary/Nephrology No dysuria 05/19 Genitourinary/Nephrology No nocturia 06/2014 Genitourinary/Nephrology No urinary incontinence 05/19/2015 Musculoskeletal stiffness 05/19/2015 Musculoskeletal No swelling 05/19/2015 Musculoskeletal No muscle weakness 2014 Musculoskeletal No myalgias 05/19/2015 Dermatologic sores 05/19/2015 Neurologic No dizziness 05/19/2015 Neurologic No headache 05/19/2015 Neurologic No neck pain 05/19/2015 Neurologic No syncope 05/19/2015 Psychiatric No anxiety 05/19/2015 Psychiatric No depression 05/19/2015 Dermatologic mole change 05/19/2015 Constitutional No recent illness 2014 Constitutional No chills 05/12/2015 Constitutional No fatigue 05/12/2015 Constitutional No fever 05/12/2015 Constitutional No insomnia 05/12/2015 Constitutional No malaise 05/12/2015 Eyes No blindness 05/12/2015 Eyes No vision change 05/12/2015 Ears/Nose/Throat/Neck No dental pain Ears/Nose/Throat/Neck No dizziness 2014 Ears/Nose/Throat/Neck No dysphagia 2014 Ears/Nose/Throat/Neck No headache 2014 Ears/Nose/Throat/Neck No hearing loss Ears/Nose/Throat/Neck No nasal allergies 05/12/2015 Ears/Nose/Throat/Neck No sore throat Ears/Nose/Throat/Neck No postnasal drip 05/12/2015 Ears/Nose/Throat/Neck No sinus congestion 05/12/2015 Cardiovascular No chest pain/pressure Cardiovascular No dyspnea 05/12/2015 Cardiovascular No edema 05/12/2015 Cardiovascular No exercise intolerance Cardiovascular No fatigue 05/12/2015 Cardiovascular No near-syncope/dizziness 05/12/2015 Respiratory No chest tightness 2014 Respiratory No cough 05/12/2015 Respiratory No dyspnea 05/12/2015 Respiratory No pedal edema 05/12/2015 Gastrointestinal abdominal pain 2014 Gastrointestinal No constipation 2014 Gastrointestinal No diarrhea 05/12/2015 Gastrointestinal No gastroesophageal reflux 05/12/2015 Gastrointestinal nausea 05/12/2015 Gastrointestinal No vomiting 05/12/2015 Genitourinary/Nephrology No dysuria 05/12 Genitourinary/Nephrology No nocturia Genitourinary/Nephrology No urinary incontinence 05/12/2015 Musculoskeletal stiffness 05/12/2015 Musculoskeletal No swelling 05/12/2015 Musculoskeletal No muscle weakness 2014 Musculoskeletal No myalgias 05/12/2015 Dermatologic mole change 05/12/2015 Dermatologic sores 05/12/2015 Neurologic No dizziness 05/12/2015 Neurologic No headache 05/12/2015 Neurologic No neck pain 05/12/2015 Neurologic No syncope 05/12/2015 Psychiatric No anxiety 05/12/2015 Psychiatric No depression 05/12/2015 Constitutional No recent illness 2014 Constitutional No anorexia 01/13/2015 Constitutional No night sweats 2014 Constitutional No chills 01/13/2015 Constitutional No diaphoresis 01/13/2015 Constitutional fatigue 01/13/2015 Constitutional No fever 01/13/2015 Constitutional insomnia 01/13/2015 Constitutional No malaise 01/13/2015 Constitutional No weight loss 01/13/2015 Eyes No eye discharge 01/13/2015 Eyes No eye erythema 01/13/2015 Ears/Nose/Throat/Neck No dizziness 2014 Ears/Nose/Throat/Neck No headache 2014 Cardiovascular No chest pain/pressure Cardiovascular No dyspnea 01/13/2015 Cardiovascular edema 01/13/2015 Respiratory No productive sputum 2014 Respiratory No chest congestion 2014 Respiratory dyspnea on exertion 2014 Gastrointestinal No abdominal pain 2014 Gastrointestinal No constipation 2014 Gastrointestinal diarrhea 01/13/2015 Genitourinary/Nephrology No dysuria 01/13 Musculoskeletal back pain 01/13/2015 Dermatologic No rash 01/13/2015 Dermatologic No sores 01/13/2015 Neurologic No alteration of consciousness 01/13/2015 Psychiatric anxiety 01/13/2015 Psychiatric No depression 01/13/2015 Endocrine dry or coarse skin 01/13/2015 Endocrine hair loss 01/13/2015 Endocrine No polydipsia 01/13/2015 Constitutional No recent illness 2014 Constitutional No anorexia 12/16/2014 Constitutional No night sweats 2014 Constitutional No chills 12/16/2014 Constitutional No diaphoresis 12/16/2014 Constitutional fatigue 12/16/2014 Constitutional No fever 12/16/2014 Constitutional insomnia 12/16/2014 Constitutional No malaise 12/16/2014 Constitutional No weight loss 12/16/2014 Constitutional weight gain 12/16/2014 Eyes No eye discharge 12/16/2014 Eyes No eye erythema 12/16/2014 Ears/Nose/Throat/Neck No dizziness 2014 Ears/Nose/Throat/Neck No headache 2014 Ears/Nose/Throat/Neck nasal allergies Ears/Nose/Throat/Neck nasal discharge Cardiovascular No chest pain/pressure Cardiovascular No dyspnea 12/16/2014 Cardiovascular edema 12/16/2014 Respiratory No productive sputum 2014 Respiratory No chest congestion 2014 Respiratory dyspnea on exertion 2014 Gastrointestinal No abdominal pain 2014 Gastrointestinal No constipation 2014 Gastrointestinal diarrhea 12/16/2014 Genitourinary/Nephrology No dysuria 12/16 Musculoskeletal back pain 12/16/2014 Dermatologic No rash 12/16/2014 Dermatologic No sores 12/16/2014 Neurologic No alteration of consciousness 12/16/2014 Psychiatric anxiety 12/16/2014 Psychiatric No depression 12/16/2014 Endocrine No polydipsia 12/16/2014 Endocrine No polyuria 12/16/2014 Endocrine hair loss 12/16/2014 Endocrine dry or coarse skin 12/16/2014 Hematologic/Lymphatic No abnormal bleeding and bruising 12/16/2014 Physical Exam Exam Name System Name Item Name Status Result Effective Dates Notes Full Exam - General 1994 Constitutional general appearance Overall: well developed 07/06/2017 None Full Exam - General 1994 Constitutional general appearance Overall: in no acute distress 07/06/2017 None Full Exam - General 1994 Constitutional general appearance Overall: well nourished 07/06/2017 None Full Exam - General 1994 Eyes conjunctiva /eyelids Overall: conjunctiva clear 07/06/2017 None Full Exam - General 1994 Eyes conjunctiva /eyelids Overall: eyelids normal 07/06/2017 None Full Exam - General 1994 Ears/Nose/Throat lips/teeth/gingiva Overall: benign lips 07/06/2017 None Full Exam - General 1994 Respiratory respiratory effort/rhythm Overall: no retractions 07/06/2017 None Full Exam - General 1994 Respiratory respiratory effort/rhythm Overall: normal rate 07/06/2017 None Full Exam - General 1994 Musculoskeletal head and neck Overall: head atraumatic 07/06/2017 None Full Exam - General 1994 Neurologic cranial nerves Overall: crainial nerves 2 - 12 grossly intact 07/06/2017 None Full Exam - General 1994 Psychiatric orientation/consciousness Overall: oriented to person, place and time 07/06/2017 None Full Exam - General 1994 Psychiatric mood and affect Overall: normal mood and affect 07/06/2017 None Full Exam - General 1994 Psychiatric appearance Overall: well-groomed, good eye contact 07/06/2017 None Full Exam - General 1994 Abdomen abdominal exam Overall: no tenderness 07/06/2017 None Full Exam - General 1994 Abdomen abdominal exam Overall: normal bowel sounds 07/06/2017 None Full Exam - General 1994 Integument inspection of skin Location: left arm 07/06/2017 on forearm - 2 x 1 cm skin tear - cleansed with water and dressed with medihoney, telfa and coban Full Exam - General 1994 Integument inspection of skin Location: buttocks 07/06/2017 irritated skin - reddened, small ulcer and yeast-like odor Full Exam - General 1994 Constitutional general appearance Overall: well developed 06/05/2017 None Full Exam - General 1994 Constitutional general appearance Overall: in no acute distress 06/05/2017 None Full Exam - General 1994 Constitutional general appearance Overall: well nourished 06/05/2017 None Full Exam - General 1994 Eyes conjunctiva /eyelids Overall: conjunctiva clear 06/05/2017 None Full Exam - General 1994 Eyes conjunctiva /eyelids Overall: eyelids normal 06/05/2017 None Full Exam - General 1994 Ears/Nose/Throat lips/teeth/gingiva Overall: benign lips 06/05/2017 None Full Exam - General 1994 Respiratory respiratory effort/rhythm Overall: no retractions 06/05/2017 None Full Exam - General 1994 Respiratory respiratory effort/rhythm Overall: normal rate 06/05/2017 None Full Exam - General 1994 Musculoskeletal head and neck Overall: head atraumatic 06/05/2017 None Full Exam - General 1994 Neurologic cranial nerves Overall: crainial nerves 2 - 12 grossly intact 06/05/2017 None Full Exam - General 1994 Psychiatric orientation/consciousness Overall: oriented to person, place and time 06/05/2017 None Full Exam - General 1994 Psychiatric mood and affect Overall: normal mood and affect 06/05/2017 None Full Exam - General 1994 Psychiatric appearance Overall: well-groomed, good eye contact 06/05/2017 None Full Exam - General 1994 Constitutional general appearance Development: well developed 05/25/2017 None Full Exam - General 1994 Constitutional general appearance Development: appears stated age 1205/25/2017 None Full Exam - General 1994 Constitutional general appearance Hygiene/Attention to Grooming: good hygiene 05/25/2017 None Full Exam - General 1994 Eyes conjunctiva /eyelids Overall: conjunctiva clear 05/25/2017 None Full Exam - General 1994 Eyes conjunctiva /eyelids Overall: cornea clear 05/25/2017 None Full Exam - General 1994 Eyes conjunctiva /eyelids Overall: eyelids normal 05/25/2017 None Full Exam - General 1994 Eyes pupils and irises Overall: pupils equal, round, reactive to light and accomodation 05/25/2017 None Full Exam - General 1994 Ears/Nose/Throat otoscopic exam Overall: external auditory canals clear 05/25/2017 None Full Exam - General 1994 Ears/Nose/Throat otoscopic exam Overall: tympanic membranes clear 05/25/2017 None Full Exam - General 1994 Ears/Nose/Throat lips/teeth/gingiva Overall: benign lips 05/25/2017 None Full Exam - General 1994 Ears/Nose/Throat lips/teeth/gingiva Overall: normal dentition 05/25/2017 None Full Exam - General 1994 Ears/Nose/Throat oral cavity/pharynx/larynx Overall: oral mucosa clear 05/25/2017 None Full Exam - General 1994 Ears/Nose/Throat oral cavity/pharynx/larynx Overall: oropharyngeal mucosa clear 05/25/2017 None Full Exam - General 1994 Ears/Nose/Throat oral cavity/pharynx/larynx Overall: hypopharynx benign 05/25/2017 None Full Exam - General 1994 Ears/Nose/Throat oral cavity/pharynx/larynx Overall: no masses 05/25/2017 None Full Exam - General 1994 Respiratory auscultation Overall: breath sounds clear bilaterally 05/25/2017 None Full Exam - General 1994 Respiratory respiratory effort/rhythm Overall: no retractions 05/25/2017 None Full Exam - General 1994 Respiratory respiratory effort/rhythm Overall: normal rate 05/25/2017 None Full Exam - General 1994 Cardiovascular extremities Overall: no clubbing 05/25/2017 None Full Exam - General 1994 Cardiovascular auscultation of heart Overall: regular rate 05/25/2017 None Full Exam - General 1994 Cardiovascular auscultation of heart Overall: normal heart sounds 05/25/2017 None Full Exam - General 1994 Abdomen abdominal exam Overall: no tenderness 05/25/2017 None Full Exam - General 1994 Abdomen abdominal exam Overall: normal bowel sounds 05/25/2017 None Full Exam - General 1994 Musculoskeletal upper extremity Overall: normal shoulder 05/25/2017 None Full Exam - General 1994 Musculoskeletal spine, ribs and pelvis Overall: good posture 05/25/2017 None Full Exam - General 1994 Musculoskeletal spine, ribs and pelvis Ribs: normal chest expansion 05/25/2017 ttp over sternum Full Exam - General 1994 Musculoskeletal head and neck Overall: head atraumatic 05/25/2017 None Full Exam - General 1994 Musculoskeletal head and neck Overall: cervical spine benign 05/25/2017 None Full Exam - General 1994 Neurologic cranial nerves Overall: crainial nerves 2 - 12 grossly intact 05/25/2017 None Full Exam - General 1994 Psychiatric orientation/consciousness Overall: oriented to person, place and time 05/25/2017 None Full Exam - General 1994 Psychiatric mood and affect Overall: normal mood and affect 05/25/2017 None Full Exam - General 1994 Constitutional general appearance Development: well developed 03/23/2017 None Full Exam - General 1994 Constitutional general appearance Development: appears stated age 1003/23/2017 None Full Exam - General 1994 Constitutional general appearance Hygiene/Attention to Grooming: good hygiene 03/23/2017 None Full Exam - General 1994 Eyes conjunctiva /eyelids Overall: conjunctiva clear 03/23/2017 None Full Exam - General 1994 Eyes conjunctiva /eyelids Overall: cornea clear 03/23/2017 None Full Exam - General 1994 Eyes conjunctiva /eyelids Overall: eyelids normal 03/23/2017 None Full Exam - General 1994 Eyes pupils and irises Overall: pupils equal, round, reactive to light and accomodation 03/23/2017 None Full Exam - General 1994 Ears/Nose/Throat otoscopic exam Overall: external auditory canals clear 03/23/2017 None Full Exam - General 1994 Ears/Nose/Throat otoscopic exam Overall: tympanic membranes clear 03/23/2017 None Full Exam - General 1994 Ears/Nose/Throat lips/teeth/gingiva Overall: benign lips 03/23/2017 None Full Exam - General 1994 Ears/Nose/Throat lips/teeth/gingiva Overall: normal dentition 03/23/2017 None Full Exam - General 1994 Ears/Nose/Throat oral cavity/pharynx/larynx Overall: oral mucosa clear 03/23/2017 None Full Exam - General 1994 Ears/Nose/Throat oral cavity/pharynx/larynx Overall: oropharyngeal mucosa clear 03/23/2017 None Full Exam - General 1994 Ears/Nose/Throat oral cavity/pharynx/larynx Overall: hypopharynx benign 03/23/2017 None Full Exam - General 1994 Ears/Nose/Throat oral cavity/pharynx/larynx Overall: no masses 03/23/2017 None Full Exam - General 1994 Respiratory auscultation Overall: breath sounds clear bilaterally 03/23/2017 None Full Exam - General 1994 Respiratory respiratory effort/rhythm Overall: no retractions 03/23/2017 None Full Exam - General 1994 Respiratory respiratory effort/rhythm Overall: normal rate 03/23/2017 None Full Exam - General 1994 Cardiovascular extremities Overall: no clubbing 03/23/2017 None Full Exam - General 1994 Cardiovascular auscultation of heart Overall: regular rate 03/23/2017 None Full Exam - General 1994 Cardiovascular auscultation of heart Overall: normal heart sounds 03/23/2017 None Full Exam - General 1994 Abdomen abdominal exam Overall: no tenderness 03/23/2017 None Full Exam - General 1994 Abdomen abdominal exam Overall: normal bowel sounds 03/23/2017 None Full Exam - General 1994 Musculoskeletal spine, ribs and pelvis Overall: good posture 03/23/2017 None Full Exam - General 1994 Musculoskeletal head and neck Overall: head atraumatic 03/23/2017 None Full Exam - General 1994 Musculoskeletal head and neck Overall: cervical spine benign 03/23/2017 None Full Exam - General 1994 Neurologic cranial nerves Overall: crainial nerves 2 - 12 grossly intact 03/23/2017 None Full Exam - General 1994 Psychiatric orientation/consciousness Overall: oriented to person, place and time 03/23/2017 None Full Exam - General 1994 Psychiatric mood and affect Overall: normal mood and affect 03/23/2017 None Full Exam - General 1994 Musculoskeletal upper extremity Overall: normal shoulder 03/23/2017 None Full Exam - General 1994 Musculoskeletal spine, ribs and pelvis Ribs: normal chest expansion 03/23/2017 ttp over sternum Full Exam - General 1994 Constitutional general appearance Development: well developed 01/23/2017 None Full Exam - General 1994 Constitutional general appearance Development: appears stated age 0801/23/2017 None Full Exam - General 1994 Constitutional general appearance Hygiene/Attention to Grooming: good hygiene 01/23/2017 None Full Exam - General 1994 Eyes conjunctiva /eyelids Overall: conjunctiva clear 01/23/2017 None Full Exam - General 1994 Eyes conjunctiva /eyelids Overall: cornea clear 01/23/2017 None Full Exam - General 1994 Eyes conjunctiva /eyelids Overall: eyelids normal 01/23/2017 None Full Exam - General 1994 Eyes pupils and irises Overall: pupils equal, round, reactive to light and accomodation 01/23/2017 None Full Exam - General 1994 Ears/Nose/Throat otoscopic exam Overall: external auditory canals clear 01/23/2017 None Full Exam - General 1994 Ears/Nose/Throat otoscopic exam Overall: tympanic membranes clear 01/23/2017 None Full Exam - General 1994 Ears/Nose/Throat lips/teeth/gingiva Overall: benign lips 01/23/2017 None Full Exam - General 1994 Ears/Nose/Throat lips/teeth/gingiva Overall: normal dentition 01/23/2017 None Full Exam - General 1994 Ears/Nose/Throat oral cavity/pharynx/larynx Overall: oral mucosa clear 01/23/2017 None Full Exam - General 1994 Ears/Nose/Throat oral cavity/pharynx/larynx Overall: oropharyngeal mucosa clear 01/23/2017 None Full Exam - General 1994 Ears/Nose/Throat oral cavity/pharynx/larynx Overall: hypopharynx benign 01/23/2017 None Full Exam - General 1994 Ears/Nose/Throat oral cavity/pharynx/larynx Overall: no masses 01/23/2017 None Full Exam - General 1994 Respiratory auscultation Overall: breath sounds clear bilaterally 01/23/2017 None Full Exam - General 1994 Respiratory respiratory effort/rhythm Overall: no retractions 01/23/2017 None Full Exam - General 1994 Respiratory respiratory effort/rhythm Overall: normal rate 01/23/2017 None Full Exam - General 1994 Cardiovascular extremities Overall: no clubbing 01/23/2017 None Full Exam - General 1994 Cardiovascular auscultation of heart Overall: regular rate 01/23/2017 None Full Exam - General 1994 Cardiovascular auscultation of heart Overall: normal heart sounds 01/23/2017 None Full Exam - General 1994 Abdomen abdominal exam Overall: no tenderness 01/23/2017 None Full Exam - General 1994 Abdomen abdominal exam Overall: normal bowel sounds 01/23/2017 None Full Exam - General 1994 Musculoskeletal spine, ribs and pelvis Overall: good posture 01/23/2017 None Full Exam - General 1994 Musculoskeletal head and neck Overall: head atraumatic 01/23/2017 None Full Exam - General 1994 Musculoskeletal head and neck Overall: cervical spine benign 01/23/2017 None Full Exam - General 1994 Neurologic cranial nerves Overall: crainial nerves 2 - 12 grossly intact 01/23/2017 None Full Exam - General 1994 Psychiatric orientation/consciousness Overall: oriented to person, place and time 01/23/2017 None Full Exam - General 1994 Psychiatric mood and affect Overall: normal mood and affect 01/23/2017 None Full Exam - Orthopedics Constitutional general appearance Overall: well nourished 11/02/2016 None Full Exam - Orthopedics Constitutional general appearance Overall: well developed 11/02/2016 None Full Exam - Orthopedics Constitutional general appearance Overall: in no acute distress 11/02/2016 None Full Exam - Orthopedics Eyes conjunctiva/ eyelids Overall: conjunctiva clear 11/02/2016 None Full Exam - Orthopedics Eyes conjunctiva/ eyelids Overall: eyelids normal 11/02/2016 None Full Exam - Orthopedics Ears/Nose/Throat lips/teeth/gingiva Overall: benign lips 11/02/2016 None Full Exam - Orthopedics Ears/Nose/Throat oral cavity/pharynx/larynx Overall: oral mucosa clear 11/02/2016 None Full Exam - Orthopedics Respiratory respiratory effort/rhythm Overall: no retractions 11/02/2016 None Full Exam - Orthopedics Respiratory respiratory effort/rhythm Overall: normal rate 11/02/2016 None Full Exam - Orthopedics Psychiatric orientation/consciousness Overall: oriented to person, place and time 11/02/2016 None Full Exam - Orthopedics Psychiatric appearance Overall: well-groomed, good eye contact 11/02/2016 None Full Exam - Orthopedics MS: spine/rib/pelvis insp & palp - S/R/P Lumbar spine palpation: tender facet joints 11/02/2016 None Full Exam - Orthopedics MS: spine/rib/pelvis insp & palp - S/R/P Thoracic spine palpation: tender facet joints 11/02/2016 None Full Exam - Orthopedics MS: spine/rib/pelvis range of motion - S/R/P Lumbar flexion: painful lumbar muscles with flexion 11/02/2016 None Full Exam - Orthopedics MS: spine/rib/pelvis range of motion - S/R/P Left lateral thoracic bending: pain radiating to the lumbar region 2016 None Full Exam - Orthopedics MS: spine/rib/pelvis range of motion - S/R/P Right lateral thoracic bending: pain radiating to the lumbar region 11/02 None Full Exam - Orthopedics Psychiatric mood and affect Affect: flat 11/02/2016 None Full Exam - Orthopedics Psychiatric mood and affect Mood: depressed 11/02/2016 None Full Exam - General 1994 Constitutional general appearance Development: well developed 09/29/2016 None Full Exam - General 1994 Constitutional general appearance Development: appears stated age 0409/29/2016 None Full Exam - General 1994 Constitutional general appearance Hygiene/Attention to Grooming: good hygiene 09/29/2016 None Full Exam - General 1994 Eyes conjunctiva /eyelids Overall: conjunctiva clear 09/29/2016 None Full Exam - General 1994 Eyes conjunctiva /eyelids Overall: cornea clear 09/29/2016 None Full Exam - General 1994 Eyes conjunctiva /eyelids Overall: eyelids normal 09/29/2016 None Full Exam - General 1994 Eyes pupils and irises Overall: pupils equal, round, reactive to light and accomodation 09/29/2016 None Full Exam - General 1994 Ears/Nose/Throat otoscopic exam Overall: external auditory canals clear 09/29/2016 None Full Exam - General 1994 Ears/Nose/Throat otoscopic exam Overall: tympanic membranes clear 09/29/2016 None Full Exam - General 1994 Ears/Nose/Throat lips/teeth/gingiva Overall: benign lips 09/29/2016 None Full Exam - General 1994 Ears/Nose/Throat lips/teeth/gingiva Overall: normal dentition 09/29/2016 None Full Exam - General 1994 Ears/Nose/Throat oral cavity/pharynx/larynx Overall: oral mucosa clear 09/29/2016 None Full Exam - General 1994 Ears/Nose/Throat oral cavity/pharynx/larynx Overall: oropharyngeal mucosa clear 09/29/2016 None Full Exam - General 1994 Ears/Nose/Throat oral cavity/pharynx/larynx Overall: hypopharynx benign 09/29/2016 None Full Exam - General 1994 Ears/Nose/Throat oral cavity/pharynx/larynx Overall: no masses 09/29/2016 None Full Exam - General 1994 Respiratory auscultation Overall: breath sounds clear bilaterally 09/29/2016 None Full Exam - General 1994 Respiratory respiratory effort/rhythm Overall: no retractions 09/29/2016 None Full Exam - General 1994 Respiratory respiratory effort/rhythm Overall: normal rate 09/29/2016 None Full Exam - General 1994 Cardiovascular extremities Overall: no clubbing 09/29/2016 None Full Exam - General 1994 Cardiovascular auscultation of heart Overall: regular rate 09/29/2016 None Full Exam - General 1994 Cardiovascular auscultation of heart Overall: normal heart sounds 09/29/2016 None Full Exam - General 1994 Abdomen abdominal exam Overall: no tenderness 09/29/2016 None Full Exam - General 1994 Abdomen abdominal exam Overall: normal bowel sounds 09/29/2016 None Full Exam - General 1994 Musculoskeletal spine, ribs and pelvis Overall: good posture 09/29/2016 None Full Exam - General 1994 Musculoskeletal head and neck Overall: head atraumatic 09/29/2016 None Full Exam - General 1994 Musculoskeletal head and neck Overall: cervical spine benign 09/29/2016 None Full Exam - General 1994 Neurologic cranial nerves Overall: crainial nerves 2 - 12 grossly intact 09/29/2016 None Full Exam - General 1994 Psychiatric orientation/consciousness Overall: oriented to person, place and time 09/29/2016 None Full Exam - General 1994 Psychiatric mood and affect Overall: normal mood and affect 09/29/2016 None Full Exam - General 1994 Constitutional general appearance Overall: well developed 07/26/2016 None Full Exam - General 1994 Constitutional general appearance Overall: in no acute distress 07/26/2016 None Full Exam - General 1994 Constitutional general appearance Overall: well nourished 07/26/2016 None Full Exam - General 1994 Constitutional general appearance Hygiene/Attention to Grooming: good hygiene 07/26/2016 None Full Exam - General 1994 Eyes conjunctiva /eyelids Overall: conjunctiva clear 07/26/2016 None Full Exam - General 1994 Eyes conjunctiva /eyelids Overall: eyelids normal 07/26/2016 None Full Exam - General 1994 Eyes pupils and irises Overall: pupils equal, round, reactive to light and accomodation 07/26/2016 None Full Exam - General 1994 Ears/Nose/Throat otoscopic exam Overall: external auditory canals clear 07/26/2016 None Full Exam - General 1994 Ears/Nose/Throat otoscopic exam Overall: tympanic membranes clear 07/26/2016 None Full Exam - General 1994 Ears/Nose/Throat lips/teeth/gingiva Overall: benign lips 07/26/2016 None Full Exam - General 1994 Ears/Nose/Throat lips/teeth/gingiva Overall: normal dentition 07/26/2016 None Full Exam - General 1994 Ears/Nose/Throat oral cavity/pharynx/larynx Overall: oral mucosa clear 07/26/2016 None Full Exam - General 1994 Ears/Nose/Throat oral cavity/pharynx/larynx Overall: oropharyngeal mucosa clear 07/26/2016 None Full Exam - General 1994 Ears/Nose/Throat oral cavity/pharynx/larynx Overall: no masses 07/26/2016 None Full Exam - General 1994 Respiratory auscultation Overall: breath sounds clear bilaterally 07/26/2016 None Full Exam - General 1994 Respiratory respiratory effort/rhythm Overall: no retractions 07/26/2016 None Full Exam - General 1994 Respiratory respiratory effort/rhythm Overall: normal rate 07/26/2016 None Full Exam - General 1994 Cardiovascular extremities Overall: no clubbing 07/26/2016 None Full Exam - General 1994 Cardiovascular auscultation of heart Overall: regular rate 07/26/2016 None Full Exam - General 1994 Cardiovascular auscultation of heart Overall: normal heart sounds 07/26/2016 None Full Exam - General 1994 Abdomen abdominal exam Overall: no tenderness 07/26/2016 None Full Exam - General 1994 Abdomen abdominal exam Overall: normal bowel sounds 07/26/2016 None Full Exam - General 1994 Musculoskeletal spine, ribs and pelvis Overall: good posture 07/26/2016 None Full Exam - General 1994 Musculoskeletal head and neck Overall: head atraumatic 07/26/2016 None Full Exam - General 1994 Neurologic cranial nerves Overall: crainial nerves 2 - 12 grossly intact 07/26/2016 None Full Exam - General 1994 Psychiatric orientation/consciousness Overall: oriented to person, place and time 07/26/2016 None Full Exam - General 1994 Psychiatric mood and affect Overall: normal mood and affect 07/26/2016 None Full Exam - General 1994 Psychiatric appearance Overall: well-groomed, good eye contact 07/26/2016 None Full Exam - General 1994 Constitutional general appearance Hygiene/Attention to Grooming: good hygiene 05/30/2016 None Full Exam - General 1994 Eyes conjunctiva /eyelids Overall: conjunctiva clear 05/30/2016 None Full Exam - General 1994 Eyes conjunctiva /eyelids Overall: eyelids normal 05/30/2016 None Full Exam - General 1994 Eyes pupils and irises Overall: pupils equal, round, reactive to light and accomodation 05/30/2016 None Full Exam - General 1994 Ears/Nose/Throat otoscopic exam Overall: external auditory canals clear 05/30/2016 None Full Exam - General 1994 Ears/Nose/Throat otoscopic exam Overall: tympanic membranes clear 05/30/2016 None Full Exam - General 1994 Ears/Nose/Throat lips/teeth/gingiva Overall: benign lips 05/30/2016 None Full Exam - General 1994 Ears/Nose/Throat lips/teeth/gingiva Overall: normal dentition 05/30/2016 None Full Exam - General 1994 Ears/Nose/Throat oral cavity/pharynx/larynx Overall: oral mucosa clear 05/30/2016 None Full Exam - General 1994 Ears/Nose/Throat oral cavity/pharynx/larynx Overall: oropharyngeal mucosa clear 05/30/2016 None Full Exam - General 1994 Ears/Nose/Throat oral cavity/pharynx/larynx Overall: no masses 05/30/2016 None Full Exam - General 1994 Respiratory auscultation Overall: breath sounds clear bilaterally 05/30/2016 None Full Exam - General 1994 Respiratory respiratory effort/rhythm Overall: no retractions 05/30/2016 None Full Exam - General 1994 Respiratory respiratory effort/rhythm Overall: normal rate 05/30/2016 None Full Exam - General 1994 Cardiovascular extremities Overall: no clubbing 05/30/2016 None Full Exam - General 1994 Cardiovascular auscultation of heart Overall: regular rate 05/30/2016 None Full Exam - General 1994 Cardiovascular auscultation of heart Overall: normal heart sounds 05/30/2016 None Full Exam - General 1994 Abdomen abdominal exam Overall: no tenderness 05/30/2016 None Full Exam - General 1994 Abdomen abdominal exam Overall: normal bowel sounds 05/30/2016 None Full Exam - General 1994 Musculoskeletal spine, ribs and pelvis Overall: good posture 05/30/2016 None Full Exam - General 1994 Musculoskeletal head and neck Overall: head atraumatic 05/30/2016 None Full Exam - General 1994 Neurologic cranial nerves Overall: crainial nerves 2 - 12 grossly intact 05/30/2016 None Full Exam - General 1994 Psychiatric orientation/consciousness Overall: oriented to person, place and time 05/30/2016 None Full Exam - General 1994 Psychiatric mood and affect Overall: normal mood and affect 05/30/2016 None Full Exam - General 1994 Constitutional general appearance Overall: well developed 05/30/2016 None Full Exam - General 1994 Constitutional general appearance Overall: in no acute distress 05/30/2016 None Full Exam - General 1994 Constitutional general appearance Overall: well nourished 05/30/2016 None Full Exam - General 1994 Psychiatric appearance Overall: well-groomed, good eye contact 05/30/2016 None Full Exam - General 1994 Constitutional general appearance Overall: well developed 05/25/2016 None Full Exam - General 1994 Constitutional general appearance Overall: in no acute distress 05/25/2016 None Full Exam - General 1994 Constitutional general appearance Overall: well nourished 05/25/2016 None Full Exam - General 1994 Constitutional general appearance Hygiene/Attention to Grooming: good hygiene 05/25/2016 None Full Exam - General 1994 Eyes conjunctiva /eyelids Overall: conjunctiva clear 05/25/2016 None Full Exam - General 1994 Eyes conjunctiva /eyelids Overall: eyelids normal 05/25/2016 None Full Exam - General 1994 Eyes pupils and irises Overall: pupils equal, round, reactive to light and accomodation 05/25/2016 None Full Exam - General 1994 Ears/Nose/Throat otoscopic exam Overall: external auditory canals clear 05/25/2016 None Full Exam - General 1994 Ears/Nose/Throat otoscopic exam Overall: tympanic membranes clear 05/25/2016 None Full Exam - General 1994 Ears/Nose/Throat lips/teeth/gingiva Overall: benign lips 05/25/2016 None Full Exam - General 1994 Ears/Nose/Throat lips/teeth/gingiva Overall: normal dentition 05/25/2016 None Full Exam - General 1994 Ears/Nose/Throat oral cavity/pharynx/larynx Overall: oral mucosa clear 05/25/2016 None Full Exam - General 1994 Ears/Nose/Throat oral cavity/pharynx/larynx Overall: oropharyngeal mucosa clear 05/25/2016 None Full Exam - General 1994 Ears/Nose/Throat oral cavity/pharynx/larynx Overall: no masses 05/25/2016 None Full Exam - General 1994 Respiratory auscultation Overall: breath sounds clear bilaterally 05/25/2016 None Full Exam - General 1994 Respiratory respiratory effort/rhythm Overall: no retractions 05/25/2016 None Full Exam - General 1994 Respiratory respiratory effort/rhythm Overall: normal rate 05/25/2016 None Full Exam - General 1994 Cardiovascular extremities Overall: no clubbing 05/25/2016 None Full Exam - General 1994 Cardiovascular auscultation of heart Overall: regular rate 05/25/2016 None Full Exam - General 1994 Cardiovascular auscultation of heart Overall: normal heart sounds 05/25/2016 None Full Exam - General 1994 Abdomen abdominal exam Overall: no tenderness 05/25/2016 None Full Exam - General 1994 Abdomen abdominal exam Overall: normal bowel sounds 05/25/2016 None Full Exam - General 1994 Musculoskeletal spine, ribs and pelvis Overall: good posture 05/25/2016 None Full Exam - General 1994 Musculoskeletal head and neck Overall: head atraumatic 05/25/2016 None Full Exam - General 1994 Neurologic cranial nerves Overall: crainial nerves 2 - 12 grossly intact 05/25/2016 None Full Exam - General 1994 Psychiatric orientation/consciousness Overall: oriented to person, place and time 05/25/2016 None Full Exam - General 1994 Psychiatric mood and affect Overall: normal mood and affect 05/25/2016 None Full Exam - General 1994 Psychiatric appearance Overall: well-groomed, good eye contact 05/25/2016 None Full Exam - General 1994 Eyes conjunctiva /eyelids Overall: conjunctiva clear 02/25/2016 None Full Exam - General 1994 Eyes conjunctiva /eyelids Overall: cornea clear 02/25/2016 None Full Exam - General 1994 Eyes conjunctiva /eyelids Overall: eyelids normal 02/25/2016 None Full Exam - General 1994 Eyes pupils and irises Overall: pupils equal, round, reactive to light and accomodation 02/25/2016 None Full Exam - General 1994 Ears/Nose/Throat lips/teeth/gingiva Overall: benign lips 02/25/2016 None Full Exam - General 1994 Ears/Nose/Throat lips/teeth/gingiva Overall: normal dentition 02/25/2016 None Full Exam - General 1994 Ears/Nose/Throat oral cavity/pharynx/larynx Overall: oral mucosa clear 02/25/2016 None Full Exam - General 1994 Respiratory auscultation Overall: breath sounds clear bilaterally 02/25/2016 None Full Exam - General 1994 Respiratory respiratory effort/rhythm Overall: no retractions 02/25/2016 None Full Exam - General 1994 Respiratory respiratory effort/rhythm Overall: normal rate 02/25/2016 None Full Exam - General 1994 Cardiovascular extremities Overall: no clubbing 02/25/2016 None Full Exam - General 1994 Cardiovascular auscultation of heart Overall: regular rate 02/25/2016 None Full Exam - General 1994 Cardiovascular auscultation of heart Overall: normal heart sounds 02/25/2016 None Full Exam - General 1994 Abdomen abdominal exam Overall: no tenderness 02/25/2016 None Full Exam - General 1994 Abdomen abdominal exam Overall: normal bowel sounds 02/25/2016 None Full Exam - General 1994 Musculoskeletal head and neck Overall: head atraumatic 02/25/2016 None Full Exam - General 1994 Neurologic cranial nerves Overall: crainial nerves 2 - 12 grossly intact 02/25/2016 None Full Exam - General 1994 Psychiatric orientation/consciousness Overall: oriented to person, place and time 02/25/2016 None Full Exam - General 1994 Psychiatric mood and affect Overall: normal mood and affect 02/25/2016 None Full Exam - General 1994 Psychiatric appearance Overall: well-groomed, good eye contact 02/25/2016 None Full Exam - General 1994 Psychiatric speech Overall: normal quality, no aphasia 02/25/2016 None Full Exam - General 1994 Psychiatric speech Overall: normal quality, quantity, rate 02/25/2016 None Full Exam - General 1994 Constitutional general appearance Development: well developed 01/25/2016 None Full Exam - General 1994 Constitutional general appearance Development: appears stated age 0801/25/2016 None Full Exam - General 1994 Constitutional general appearance Hygiene/Attention to Grooming: good hygiene 01/25/2016 None Full Exam - General 1994 Eyes conjunctiva /eyelids Overall: conjunctiva clear 01/25/2016 None Full Exam - General 1994 Eyes conjunctiva /eyelids Overall: cornea clear 01/25/2016 None Full Exam - General 1994 Eyes conjunctiva /eyelids Overall: eyelids normal 01/25/2016 None Full Exam - General 1994 Eyes pupils and irises Overall: pupils equal, round, reactive to light and accomodation 01/25/2016 None Full Exam - General 1994 Ears/Nose/Throat otoscopic exam Overall: external auditory canals clear 01/25/2016 None Full Exam - General 1994 Ears/Nose/Throat otoscopic exam Overall: tympanic membranes clear 01/25/2016 None Full Exam - General 1994 Ears/Nose/Throat lips/teeth/gingiva Overall: benign lips 01/25/2016 None Full Exam - General 1994 Ears/Nose/Throat lips/teeth/gingiva Overall: normal dentition 01/25/2016 None Full Exam - General 1994 Ears/Nose/Throat oral cavity/pharynx/larynx Overall: oral mucosa clear 01/25/2016 None Full Exam - General 1994 Ears/Nose/Throat oral cavity/pharynx/larynx Overall: oropharyngeal mucosa clear 01/25/2016 None Full Exam - General 1994 Ears/Nose/Throat oral cavity/pharynx/larynx Overall: hypopharynx benign 01/25/2016 None Full Exam - General 1994 Ears/Nose/Throat oral cavity/pharynx/larynx Overall: no masses 01/25/2016 None Full Exam - General 1994 Respiratory auscultation Overall: breath sounds clear bilaterally 01/25/2016 None Full Exam - General 1994 Respiratory respiratory effort/rhythm Overall: no retractions 01/25/2016 None Full Exam - General 1994 Respiratory respiratory effort/rhythm Overall: normal rate 01/25/2016 None Full Exam - General 1994 Cardiovascular extremities Overall: no clubbing 01/25/2016 None Full Exam - General 1994 Cardiovascular auscultation of heart Overall: regular rate 01/25/2016 None Full Exam - General 1994 Cardiovascular auscultation of heart Overall: normal heart sounds 01/25/2016 None Full Exam - General 1994 Abdomen abdominal exam Overall: no tenderness 01/25/2016 None Full Exam - General 1994 Abdomen abdominal exam Overall: normal bowel sounds 01/25/2016 None Full Exam - General 1994 Musculoskeletal spine, ribs and pelvis Overall: good posture 01/25/2016 None Full Exam - General 1994 Musculoskeletal head and neck Overall: head atraumatic 01/25/2016 None Full Exam - General 1994 Musculoskeletal head and neck Overall: cervical spine benign 01/25/2016 None Full Exam - General 1994 Neurologic cranial nerves Overall: crainial nerves 2 - 12 grossly intact 01/25/2016 None Full Exam - General 1994 Psychiatric orientation/consciousness Overall: oriented to person, place and time 01/25/2016 None Full Exam - General 1994 Psychiatric mood and affect Overall: normal mood and affect 01/25/2016 None Full Exam - General 1994 Constitutional general appearance Development: well developed 11/11/2015 None Full Exam - General 1994 Constitutional general appearance Development: appears stated age 0511/11/2015 None Full Exam - General 1994 Constitutional general appearance Hygiene/Attention to Grooming: good hygiene 11/11/2015 None Full Exam - General 1994 Eyes conjunctiva /eyelids Overall: conjunctiva clear 11/11/2015 None Full Exam - General 1994 Eyes conjunctiva /eyelids Overall: cornea clear 11/11/2015 None Full Exam - General 1994 Eyes conjunctiva /eyelids Overall: eyelids normal 11/11/2015 None Full Exam - General 1994 Eyes pupils and irises Overall: pupils equal, round, reactive to light and accomodation 11/11/2015 None Full Exam - General 1994 Ears/Nose/Throat otoscopic exam Overall: external auditory canals clear 11/11/2015 None Full Exam - General 1994 Ears/Nose/Throat otoscopic exam Overall: tympanic membranes clear 11/11/2015 None Full Exam - General 1994 Ears/Nose/Throat lips/teeth/gingiva Overall: benign lips 11/11/2015 None Full Exam - General 1994 Ears/Nose/Throat lips/teeth/gingiva Overall: normal dentition 11/11/2015 None Full Exam - General 1994 Ears/Nose/Throat oral cavity/pharynx/larynx Overall: oral mucosa clear 11/11/2015 None Full Exam - General 1994 Ears/Nose/Throat oral cavity/pharynx/larynx Overall: oropharyngeal mucosa clear 11/11/2015 None Full Exam - General 1994 Ears/Nose/Throat oral cavity/pharynx/larynx Overall: no masses 11/11/2015 None Full Exam - General 1994 Respiratory auscultation Overall: breath sounds clear bilaterally 11/11/2015 None Full Exam - General 1994 Respiratory respiratory effort/rhythm Overall: no retractions 11/11/2015 None Full Exam - General 1994 Respiratory respiratory effort/rhythm Overall: normal rate 11/11/2015 None Full Exam - General 1994 Cardiovascular extremities Overall: no clubbing 11/11/2015 None Full Exam - General 1994 Cardiovascular auscultation of heart Overall: regular rate 11/11/2015 None Full Exam - General 1994 Cardiovascular auscultation of heart Overall: normal heart sounds 11/11/2015 None Full Exam - General 1994 Musculoskeletal spine, ribs and pelvis Overall: good posture 11/11/2015 None Full Exam - General 1994 Musculoskeletal head and neck Overall: head atraumatic 11/11/2015 None Full Exam - General 1994 Neurologic coordination Tremors: resting 11/11/2015 None Full Exam - General 1994 Neurologic cranial nerves Overall: crainial nerves 2 - 12 grossly intact 11/11/2015 None Full Exam - General 1994 Psychiatric orientation/consciousness Overall: oriented to person, place and time 11/11/2015 None Full Exam - General 1994 Psychiatric mood and affect Overall: normal mood and affect 11/11/2015 None Full Exam - General 1994 Ears/Nose/Throat otoscopic exam Tympanic membrane: air- fluid level 11/11/2015 None Full Exam - General 1994 Ears/Nose/Throat oral cavity/pharynx/larynx Posterior Pharynx: clear post nasal drainage 11/11/2015 None Full Exam - General 1994 Psychiatric appearance Overall: well-groomed, good eye contact 11/11/2015 None Full Exam - General 1994 Constitutional general appearance Development: well developed 10/12/2015 None Full Exam - General 1994 Constitutional general appearance Development: appears stated age 0410/12/2015 None Full Exam - General 1994 Constitutional general appearance Hygiene/Attention to Grooming: good hygiene 10/12/2015 None Full Exam - General 1994 Eyes conjunctiva /eyelids Overall: conjunctiva clear 10/12/2015 None Full Exam - General 1994 Eyes conjunctiva /eyelids Overall: cornea clear 10/12/2015 None Full Exam - General 1994 Eyes conjunctiva /eyelids Overall: eyelids normal 10/12/2015 None Full Exam - General 1994 Eyes pupils and irises Overall: pupils equal, round, reactive to light and accomodation 10/12/2015 None Full Exam - General 1994 Ears/Nose/Throat otoscopic exam Overall: external auditory canals clear 10/12/2015 None Full Exam - General 1994 Ears/Nose/Throat otoscopic exam Overall: tympanic membranes clear 10/12/2015 None Full Exam - General 1994 Ears/Nose/Throat lips/teeth/gingiva Overall: benign lips 10/12/2015 None Full Exam - General 1994 Ears/Nose/Throat lips/teeth/gingiva Overall: normal dentition 10/12/2015 None Full Exam - General 1994 Ears/Nose/Throat oral cavity/pharynx/larynx Overall: oral mucosa clear 10/12/2015 None Full Exam - General 1994 Ears/Nose/Throat oral cavity/pharynx/larynx Overall: oropharyngeal mucosa clear 10/12/2015 None Full Exam - General 1994 Ears/Nose/Throat oral cavity/pharynx/larynx Overall: hypopharynx benign 10/12/2015 None Full Exam - General 1994 Ears/Nose/Throat oral cavity/pharynx/larynx Overall: no masses 10/12/2015 None Full Exam - General 1994 Respiratory auscultation Overall: breath sounds clear bilaterally 10/12/2015 None Full Exam - General 1994 Respiratory respiratory effort/rhythm Overall: no retractions 10/12/2015 None Full Exam - General 1994 Respiratory respiratory effort/rhythm Overall: normal rate 10/12/2015 None Full Exam - General 1994 Cardiovascular extremities Overall: no clubbing 10/12/2015 None Full Exam - General 1994 Cardiovascular auscultation of heart Overall: regular rate 10/12/2015 None Full Exam - General 1994 Cardiovascular auscultation of heart Overall: normal heart sounds 10/12/2015 None Full Exam - General 1994 Abdomen abdominal exam Overall: no tenderness 10/12/2015 None Full Exam - General 1994 Abdomen abdominal exam Overall: normal bowel sounds 10/12/2015 None Full Exam - General 1994 Lymphatic neck nodes Overall: anterior cervical chain benign 10/12/2015 None Full Exam - General 1994 Lymphatic neck nodes Overall: posterior cervical chain benign 10/12/2015 None Full Exam - General 1994 Musculoskeletal spine, ribs and pelvis Overall: spine benign 10/12/2015 None Full Exam - General 1994 Musculoskeletal spine, ribs and pelvis Overall: sacroiliac joint benign 10/12/2015 None Full Exam - General 1994 Musculoskeletal spine, ribs and pelvis Overall: good posture 10/12/2015 None Full Exam - General 1994 Musculoskeletal head and neck Overall: head atraumatic 10/12/2015 None Full Exam - General 1994 Musculoskeletal head and neck Overall: cervical spine benign 10/12/2015 None Full Exam - General 1994 Integument inspection of skin Location: face 10/12/2015 right nasolabial fold Full Exam - General 1994 Integument inspection of skin Location: neck 10/12/2015 left side of lower neck near clavicle Full Exam - General 1994 Neurologic coordination Tremors: resting 10/12/2015 None Full Exam - General 1994 Neurologic cranial nerves Overall: crainial nerves 2 - 12 grossly intact 10/12/2015 None Full Exam - General 1994 Psychiatric orientation/consciousness Overall: oriented to person, place and time 10/12/2015 None Full Exam - General 1994 Psychiatric mood and affect Overall: normal mood and affect 10/12/2015 None Full Exam - General 1994 Constitutional general appearance Development: well developed 09/03/2015 None Full Exam - General 1994 Constitutional general appearance Development: appears stated age 0309/03/2015 None Full Exam - General 1994 Constitutional general appearance Hygiene/Attention to Grooming: good hygiene 09/03/2015 None Full Exam - General 1994 Eyes conjunctiva /eyelids Overall: conjunctiva clear 09/03/2015 None Full Exam - General 1994 Eyes conjunctiva /eyelids Overall: cornea clear 09/03/2015 None Full Exam - General 1994 Eyes conjunctiva /eyelids Overall: eyelids normal 09/03/2015 None Full Exam - General 1994 Eyes pupils and irises Overall: pupils equal, round, reactive to light and accomodation 09/03/2015 None Full Exam - General 1994 Ears/Nose/Throat otoscopic exam Overall: external auditory canals clear 09/03/2015 None Full Exam - General 1994 Ears/Nose/Throat otoscopic exam Overall: tympanic membranes clear 09/03/2015 None Full Exam - General 1994 Ears/Nose/Throat lips/teeth/gingiva Overall: benign lips 09/03/2015 None Full Exam - General 1994 Ears/Nose/Throat lips/teeth/gingiva Overall: normal dentition 09/03/2015 None Full Exam - General 1994 Ears/Nose/Throat oral cavity/pharynx/larynx Overall: oral mucosa clear 09/03/2015 None Full Exam - General 1994 Ears/Nose/Throat oral cavity/pharynx/larynx Overall: oropharyngeal mucosa clear 09/03/2015 None Full Exam - General 1994 Ears/Nose/Throat oral cavity/pharynx/larynx Overall: hypopharynx benign 09/03/2015 None Full Exam - General 1994 Ears/Nose/Throat oral cavity/pharynx/larynx Overall: no masses 09/03/2015 None Full Exam - General 1994 Respiratory auscultation Overall: breath sounds clear bilaterally 09/03/2015 None Full Exam - General 1994 Respiratory respiratory effort/rhythm Overall: no retractions 09/03/2015 None Full Exam - General 1994 Respiratory respiratory effort/rhythm Overall: normal rate 09/03/2015 None Full Exam - General 1994 Cardiovascular extremities Overall: no clubbing 09/03/2015 None Full Exam - General 1994 Cardiovascular auscultation of heart Overall: regular rate 09/03/2015 None Full Exam - General 1994 Cardiovascular auscultation of heart Overall: normal heart sounds 09/03/2015 None Full Exam - General 1994 Abdomen abdominal exam Overall: no tenderness 09/03/2015 None Full Exam - General 1994 Abdomen abdominal exam Overall: normal bowel sounds 09/03/2015 None Full Exam - General 1994 Lymphatic neck nodes Overall: anterior cervical chain benign 09/03/2015 None Full Exam - General 1994 Lymphatic neck nodes Overall: posterior cervical chain benign 09/03/2015 None Full Exam - General 1994 Musculoskeletal spine, ribs and pelvis Overall: spine benign 09/03/2015 None Full Exam - General 1994 Musculoskeletal spine, ribs and pelvis Overall: sacroiliac joint benign 09/03/2015 None Full Exam - General 1994 Musculoskeletal spine, ribs and pelvis Overall: good posture 09/03/2015 None Full Exam - General 1994 Musculoskeletal head and neck Overall: head atraumatic 09/03/2015 None Full Exam - General 1994 Musculoskeletal head and neck Overall: cervical spine benign 09/03/2015 None Full Exam - General 1994 Integument inspection of skin Location: face 09/03/2015 right nasolabial fold Full Exam - General 1994 Integument inspection of skin Location: neck 09/03/2015 left side of lower neck near clavicle Full Exam - General 1994 Neurologic coordination Tremors: resting 09/03/2015 None Full Exam - General 1994 Neurologic cranial nerves Overall: crainial nerves 2 - 12 grossly intact 09/03/2015 None Full Exam - General 1994 Psychiatric orientation/consciousness Overall: oriented to person, place and time 09/03/2015 None Full Exam - General 1994 Psychiatric mood and affect Overall: normal mood and affect 09/03/2015 None Full Exam - General 1994 Constitutional general appearance Development: well developed 05/19/2015 None Full Exam - General 1994 Constitutional general appearance Development: appears stated age 1205/19/2015 None Full Exam - General 1994 Constitutional general appearance Hygiene/Attention to Grooming: good hygiene 05/19/2015 None Full Exam - General 1994 Eyes conjunctiva /eyelids Overall: conjunctiva clear 05/19/2015 None Full Exam - General 1994 Eyes conjunctiva /eyelids Overall: cornea clear 05/19/2015 None Full Exam - General 1994 Eyes conjunctiva /eyelids Overall: eyelids normal 05/19/2015 None Full Exam - General 1994 Eyes pupils and irises Overall: pupils equal, round, reactive to light and accomodation 05/19/2015 None Full Exam - General 1994 Ears/Nose/Throat otoscopic exam Overall: external auditory canals clear 05/19/2015 None Full Exam - General 1994 Ears/Nose/Throat otoscopic exam Overall: tympanic membranes clear 05/19/2015 None Full Exam - General 1994 Ears/Nose/Throat lips/teeth/gingiva Overall: benign lips 05/19/2015 None Full Exam - General 1994 Ears/Nose/Throat lips/teeth/gingiva Overall: normal dentition 05/19/2015 None Full Exam - General 1994 Ears/Nose/Throat oral cavity/pharynx/larynx Overall: oral mucosa clear 05/19/2015 None Full Exam - General 1994 Ears/Nose/Throat oral cavity/pharynx/larynx Overall: oropharyngeal mucosa clear 05/19/2015 None Full Exam - General 1994 Ears/Nose/Throat oral cavity/pharynx/larynx Overall: hypopharynx benign 05/19/2015 None Full Exam - General 1994 Ears/Nose/Throat oral cavity/pharynx/larynx Overall: no masses 05/19/2015 None Full Exam - General 1994 Respiratory auscultation Overall: breath sounds clear bilaterally 05/19/2015 None Full Exam - General 1994 Respiratory respiratory effort/rhythm Overall: no retractions 05/19/2015 None Full Exam - General 1994 Respiratory respiratory effort/rhythm Overall: normal rate 05/19/2015 None Full Exam - General 1994 Cardiovascular extremities Overall: no clubbing 05/19/2015 None Full Exam - General 1994 Cardiovascular auscultation of heart Overall: regular rate 05/19/2015 None Full Exam - General 1994 Cardiovascular auscultation of heart Overall: normal heart sounds 05/19/2015 None Full Exam - General 1994 Abdomen abdominal exam Overall: no tenderness 05/19/2015 None Full Exam - General 1994 Abdomen abdominal exam Overall: normal bowel sounds 05/19/2015 None Full Exam - General 1994 Lymphatic neck nodes Overall: anterior cervical chain benign 05/19/2015 None Full Exam - General 1994 Lymphatic neck nodes Overall: posterior cervical chain benign 05/19/2015 None Full Exam - General 1994 Musculoskeletal spine, ribs and pelvis Overall: spine benign 05/19/2015 None Full Exam - General 1994 Musculoskeletal spine, ribs and pelvis Overall: sacroiliac joint benign 05/19/2015 None Full Exam - General 1994 Musculoskeletal spine, ribs and pelvis Overall: good posture 05/19/2015 None Full Exam - General 1994 Musculoskeletal head and neck Overall: head atraumatic 05/19/2015 None Full Exam - General 1994 Musculoskeletal head and neck Overall: cervical spine benign 05/19/2015 None Full Exam - General 1994 Neurologic cranial nerves Overall: crainial nerves 2 - 12 grossly intact 05/19/2015 None Full Exam - General 1994 Psychiatric orientation/consciousness Overall: oriented to person, place and time 05/19/2015 None Full Exam - General 1994 Psychiatric mood and affect Overall: normal mood and affect 05/19/2015 None Full Exam - General 1994 Neurologic coordination Tremors: resting 05/19/2015 None Full Exam - General 1994 Integument inspection of skin Location: neck 05/19/2015 left side of lower neck near clavicle Full Exam - General 1994 Integument inspection of skin Location: face 05/19/2015 right nasolabial fold Full Exam - General 1994 Constitutional general appearance Development: well developed 05/12/2015 None Full Exam - General 1994 Constitutional general appearance Development: appears stated age 1105/12/2015 None Full Exam - General 1994 Constitutional general appearance Hygiene/Attention to Grooming: good hygiene 05/12/2015 None Full Exam - General 1994 Eyes conjunctiva /eyelids Overall: conjunctiva clear 05/12/2015 None Full Exam - General 1994 Eyes conjunctiva /eyelids Overall: cornea clear 05/12/2015 None Full Exam - General 1994 Eyes conjunctiva /eyelids Overall: eyelids normal 05/12/2015 None Full Exam - General 1994 Eyes pupils and irises Overall: pupils equal, round, reactive to light and accomodation 05/12/2015 None Full Exam - General 1994 Ears/Nose/Throat otoscopic exam Overall: external auditory canals clear 05/12/2015 None Full Exam - General 1994 Ears/Nose/Throat otoscopic exam Overall: tympanic membranes clear 05/12/2015 None Full Exam - General 1994 Ears/Nose/Throat lips/teeth/gingiva Overall: benign lips 05/12/2015 None Full Exam - General 1994 Ears/Nose/Throat lips/teeth/gingiva Overall: normal dentition 05/12/2015 None Full Exam - General 1994 Ears/Nose/Throat oral cavity/pharynx/larynx Overall: oral mucosa clear 05/12/2015 None Full Exam - General 1994 Ears/Nose/Throat oral cavity/pharynx/larynx Overall: oropharyngeal mucosa clear 05/12/2015 None Full Exam - General 1994 Ears/Nose/Throat oral cavity/pharynx/larynx Overall: hypopharynx benign 05/12/2015 None Full Exam - General 1994 Ears/Nose/Throat oral cavity/pharynx/larynx Overall: no masses 05/12/2015 None Full Exam - General 1994 Respiratory auscultation Overall: breath sounds clear bilaterally 05/12/2015 None Full Exam - General 1994 Respiratory respiratory effort/rhythm Overall: no retractions 05/12/2015 None Full Exam - General 1994 Respiratory respiratory effort/rhythm Overall: normal rate 05/12/2015 None Full Exam - General 1994 Cardiovascular extremities Overall: no clubbing 05/12/2015 None Full Exam - General 1994 Cardiovascular auscultation of heart Overall: regular rate 05/12/2015 None Full Exam - General 1994 Cardiovascular auscultation of heart Overall: normal heart sounds 05/12/2015 None Full Exam - General 1994 Abdomen abdominal exam Overall: no tenderness 05/12/2015 None Full Exam - General 1994 Abdomen abdominal exam Overall: normal bowel sounds 05/12/2015 None Full Exam - General 1994 Lymphatic neck nodes Overall: anterior cervical chain benign 05/12/2015 None Full Exam - General 1994 Lymphatic neck nodes Overall: posterior cervical chain benign 05/12/2015 None Full Exam - General 1994 Musculoskeletal spine, ribs and pelvis Overall: spine benign 05/12/2015 None Full Exam - General 1994 Musculoskeletal spine, ribs and pelvis Overall: sacroiliac joint benign 05/12/2015 None Full Exam - General 1994 Musculoskeletal spine, ribs and pelvis Overall: good posture 05/12/2015 None Full Exam - General 1994 Musculoskeletal head and neck Overall: head atraumatic 05/12/2015 None Full Exam - General 1994 Musculoskeletal head and neck Overall: cervical spine benign 05/12/2015 None Full Exam - General 1994 Integument inspection of skin Location: face 05/12/2015 right nasolabial fold Full Exam - General 1994 Integument inspection of skin Location: neck 05/12/2015 left side of lower neck near clavicle Full Exam - General 1994 Neurologic coordination Tremors: resting 05/12/2015 None Full Exam - General 1994 Neurologic cranial nerves Overall: crainial nerves 2 - 12 grossly intact 05/12/2015 None Full Exam - General 1994 Psychiatric orientation/consciousness Overall: oriented to person, place and time 05/12/2015 None Full Exam - General 1994 Psychiatric mood and affect Overall: normal mood and affect 05/12/2015 None Full Exam - General 1994 Constitutional general appearance Overall: well developed 01/13/2015 None Full Exam - General 1994 Constitutional general appearance Overall: in no acute distress 01/13/2015 None Full Exam - General 1994 Constitutional general appearance Overall: well nourished 01/13/2015 None Full Exam - General 1994 Eyes ophthalmoscopic exam Overall: benign arterioles 01/13/2015 None Full Exam - General 1994 Eyes ophthalmoscopic exam Overall: benign arterial-venous crossing 01/13/2015 None Full Exam - General 1994 Eyes ophthalmoscopic exam Overall: benign fundi 01/13/2015 None Full Exam - General 1994 Eyes ophthalmoscopic exam Overall: sharp optic disc 01/13/2015 None Full Exam - General 1994 Ears/Nose/Throat otoscopic exam Overall: external auditory canals clear 01/13/2015 None Full Exam - General 1994 Ears/Nose/Throat otoscopic exam Overall: tympanic membranes clear 01/13/2015 None Full Exam - General 1994 Ears/Nose/Throat oral cavity/pharynx/larynx Overall: oral mucosa clear 01/13/2015 None Full Exam - General 1994 Ears/Nose/Throat oral cavity/pharynx/larynx Overall: oropharyngeal mucosa clear 01/13/2015 None Full Exam - General 1994 Ears/Nose/Throat oral cavity/pharynx/larynx Overall: no masses 01/13/2015 None Full Exam - General 1994 Respiratory auscultation Overall: breath sounds clear bilaterally 01/13/2015 None Full Exam - General 1994 Respiratory respiratory effort/rhythm Overall: no retractions 01/13/2015 None Full Exam - General 1994 Respiratory respiratory effort/rhythm Overall: normal rate 01/13/2015 None Full Exam - General 1994 Cardiovascular extremities Edema present: pitting 01/13/2015 None Full Exam - General 1994 Cardiovascular extremities Edema present: bilateral 01/13/2015 None Full Exam - General 1994 Cardiovascular auscultation of heart Overall: regular rate 01/13/2015 None Full Exam - General 1994 Cardiovascular auscultation of heart Overall: normal heart sounds 01/13/2015 None Full Exam - General 1994 Abdomen abdominal exam Overall: no tenderness 01/13/2015 None Full Exam - General 1994 Abdomen abdominal exam Overall: normal bowel sounds 01/13/2015 None Full Exam - General 1994 Lymphatic neck nodes Overall: anterior cervical chain benign 01/13/2015 None Full Exam - General 1994 Lymphatic neck nodes Overall: posterior cervical chain benign 01/13/2015 None Full Exam - General 1994 Musculoskeletal gait and station Overall: normal gait 01/13/2015 None Full Exam - General 1994 Musculoskeletal gait and station Overall: normal station 01/13/2015 None Full Exam - General 1994 Integument inspection of skin Overall: no rash, lesions 01/13/2015 None Full Exam - General 1994 Neurologic cranial nerves Overall: crainial nerves 2 - 12 grossly intact 01/13/2015 None Full Exam - General 1994 Psychiatric orientation/consciousness Overall: oriented to person, place and time 01/13/2015 None Full Exam - General 1994 Psychiatric orientation/consciousness Overall: oriented to person, place and time 12/16/2014 None Full Exam - General 1994 Neurologic cranial nerves Overall: crainial nerves 2 - 12 grossly intact 12/16/2014 None Full Exam - General 1994 Integument inspection of skin Overall: no rash, lesions 12/16/2014 None Full Exam - General 1994 Musculoskeletal gait and station Overall: normal station 12/16/2014 None Full Exam - General 1994 Musculoskeletal gait and station Overall: normal gait 12/16/2014 None Full Exam - General 1994 Lymphatic neck nodes Overall: anterior cervical chain benign 12/16/2014 None Full Exam - General 1994 Lymphatic neck nodes Overall: posterior cervical chain benign 12/16/2014 None Full Exam - General 1994 Abdomen abdominal exam Overall: no tenderness 12/16/2014 None Full Exam - General 1994 Abdomen abdominal exam Overall: normal bowel sounds 12/16/2014 None Full Exam - General 1994 Cardiovascular auscultation of heart Overall: regular rate 12/16/2014 None Full Exam - General 1994 Cardiovascular auscultation of heart Overall: normal heart sounds 12/16/2014 None Full Exam - General 1994 Cardiovascular extremities Edema present: pitting 12/16/2014 None Full Exam - General 1994 Cardiovascular extremities Edema present: bilateral 12/16/2014 None Full Exam - General 1994 Respiratory auscultation Overall: breath sounds clear bilaterally 12/16/2014 None Full Exam - General 1994 Respiratory respiratory effort/rhythm Overall: normal rate 12/16/2014 None Full Exam - General 1994 Respiratory respiratory effort/rhythm Overall: no retractions 12/16/2014 None Full Exam - General 1994 Ears/Nose/Throat otoscopic exam Overall: tympanic membranes clear 12/16/2014 None Full Exam - General 1994 Ears/Nose/Throat otoscopic exam Overall: external auditory canals clear 12/16/2014 None Full Exam - General 1994 Ears/Nose/Throat oral cavity/pharynx/larynx Overall: oropharyngeal mucosa clear 12/16/2014 None Full Exam - General 1994 Ears/Nose/Throat oral cavity/pharynx/larynx Overall: no masses 12/16/2014 None Full Exam - General 1994 Ears/Nose/Throat oral cavity/pharynx/larynx Overall: oral mucosa clear 12/16/2014 None Full Exam - General 1994 Eyes ophthalmoscopic exam Overall: sharp optic disc 12/16/2014 None Full Exam - General 1994 Eyes ophthalmoscopic exam Overall: benign arterioles 12/16/2014 None Full Exam - General 1994 Eyes ophthalmoscopic exam Overall: benign arterial-venous crossing 12/16/2014 None Full Exam - General 1994 Eyes ophthalmoscopic exam Overall: benign fundi 12/16/2014 None Full Exam - General 1994 Constitutional general appearance Overall: well nourished 12/16/2014 None Full Exam - General 1994 Constitutional general appearance Overall: well developed 12/16/2014 None Full Exam - General 1994 Constitutional general appearance Overall: in no acute distress 12/16/2014 None Procedures Procedure Codes Date THER/PROPH/DIAG INJ SC/IM CPT-4: 11264 07/06/2017 PPPS, SUBSEQ VISIT CPT -4: G0439 06/05/2017 THER/PROPH/DIAG INJ SC/IM CPT-4: 96727 06/05/2017 THER/PROPH/DIAG INJ SC/IM CPT-4: 81556 05/25/2017 VITAMIN B12 INJECTION CPT-4: J3420 05/25/2017 THER/PROPH/DIAG INJ SC/IM CPT-4: 09877 05/16/2017 THER/PROPH/DIAG INJ SC/IM CPT-4: 65330 05/01/2017 THER/PROPH/DIAG INJ SC/IM CPT-4: 03255 04/18/2017 THER/PROPH/DIAG INJ SC/IM CPT-4: 42583 04/06/2017 ADMIN INFLUENZA VIRUS VAC CPT-4: G0008 03/22/2017 FLU VACC PRSV FREE INC ANTIG CPT-4: 12776 03/22/2017 THER/PROPH/DIAG INJ SC/IM CPT-4: 87447 03/09/2017 THER/PROPH/DIAG INJ SC/IM CPT-4: 08565 02/23/2017 THER/PROPH/DIAG INJ SC/IM CPT-4: 17300 02/09/2017 THER/PROPH/DIAG INJ SC/IM CPT-4: 92128 01/23/2017 THER/PROPH/DIAG INJ SC/IM CPT-4: 18598 01/10/2017 THER/PROPH/DIAG INJ SC/IM CPT-4: 87016 12/28/2016 THER/PROPH/DIAG INJ SC/IM CPT-4: 61710 12/14/2016 THER/PROPH/DIAG INJ SC/IM CPT-4: 52974 11/24/2016 URINALYSIS NONAUTO W/O SCOPE CPT-4: 66169 11/07/2016 THER/PROPH/DIAG INJ SC/IM CPT-4: 73138 11/07/2016 THER/PROPH/DIAG INJ SC/IM CPT-4: 70720 10/24/2016 THER/PROPH/DIAG INJ SC/IM CPT-4: 83042 09/29/2016 THER/PROPH/DIAG INJ SC/IM CPT-4: 28296 08/29/2016 THER/PROPH/DIAG INJ SC/IM CPT-4: 19508 08/04/2016 THER/PROPH/DIAG INJ SC/IM CPT-4: 49277 07/21/2016 THER/PROPH/DIAG INJ SC/IM CPT-4: 69533 07/05/2016 THER/PROPH/DIAG INJ SC/IM CPT-4: 33392 06/22/2016 URINALYSIS NONAUTO W/O SCOPE CPT-4: 10046 06/22/2016 THER/PROPH/DIAG INJ SC/IM CPT-4: 17155 06/09/2016 PPPS, SUBSEQ VISIT CPT -4: G0439 05/30/2016 ADMIN PNEUMOCOCCAL VACCINE SNOMED CT: 92331458 CPT-4: G0009 05/25/2016 Pneumococcal Polysaccharide Vaccine, 23-Valent, Ad CPT-4: 36110 05/25/2016 THER/PROPH/DIAG INJ SC/IM CPT-4: 03014 05/25/2016 THER/PROPH/DIAG INJ SC/IM CPT-4: 98301 05/10/2016 TRIAMCINOLONE ACET INJ NOS CPT-4: J3301 04/26/2016 VITAMIN B12 INJECTION CPT-4: J3420 04/26/2016 THER/PROPH/DIAG INJ SC/IM CPT-4: 23782 04/11/2016 THER/PROPH/DIAG INJ SC/IM CPT-4: 68044 03/31/2016 ADMIN INFLUENZA VIRUS VAC CPT-4: G0008 03/15/2016 FLU VACC 4 STEPHANIE 3 YRS [address]US IM SNOM[address] CT: 11819448 CPT-4: 46688 03/15/2016 THER/PROPH/DIAG INJ SC/IM CPT-4: 33253 02/25/2016 THER/PROPH/DIAG INJ SC/IM CPT-4: 31102 02/02/2016 THER/PROPH/DIAG INJ SC/IM CPT-4: 21615 01/18/2016 VITAMIN B12 INJECTION CPT-4: J3420 12/29/2015 THER/PROPH/DIAG INJ SC/IM CPT-4: 81372 12/29/2015 THER/PROPH/DIAG INJ SC/IM CPT-4: 69431 12/08/2015 THER/PROPH/DIAG INJ SC/IM CPT-4: 43814 11/23/2015 URINALYSIS NONAUTO W/O SCOPE CPT-4: 39680 11/23/2015 THER/PROPH/DIAG INJ SC/IM CPT-4: 35858 11/11/2015 THER/PROPH/DIAG INJ SC/IM CPT-4: 32298 10/29/2015 THER/PROPH/DIAG INJ SC/IM CPT-4: 27238 10/12/2015 VITAMIN B12 INJECTION CPT-4: J3420 10/12/2015 THER/PROPH/DIAG INJ SC/IM CPT-4: 02975 09/29/2015 THER/PROPH/DIAG INJ SC/IM CPT-4: 96165 09/17/2015 THER/PROPH/DIAG INJ SC/IM CPT-4: 05904 09/03/2015 THER/PROPH/DIAG INJ SC/IM CPT-4: 28913 08/17/2015 THER/PROPH/DIAG INJ SC/IM CPT-4: 15935 08/06/2015 THER/PROPH/DIAG INJ SC/IM CPT-4: 14784 07/22/2015 THER/PROPH/DIAG INJ SC/IM CPT-4: 93737 07/08/2015 THER/PROPH/DIAG INJ SC/IM CPT-4: 34876 06/23/2015 THER/PROPH/DIAG INJ SC/IM CPT-4: 82050 06/08/2015 THER/PROPH/DIAG INJ SC/IM CPT-4: 47173 05/27/2015 DESTRUCT PREMALG LESION CPT-4: 31476 05/19/2015 DESTRUCT PREMALG LES 2-14 CPT-4: 66154 05/19/2015 THER/PROPH/DIAG INJ SC/IM CPT-4: 48909 05/12/2015 VITAMIN B12 INJECTION CPT-4: J3420 05/12/2015 THER/PROPH/DIAG INJ SC/IM CPT-4: 12540 04/30/2015 VITAMIN B12 INJECTION CPT-4: J3420 04/30/2015 THER/PROPH/DIAG INJ SC/IM CPT-4: 41274 04/16/2015 THER/PROPH/DIAG INJ SC/IM CPT-4: 37919 04/02/2015 VITAMIN B12 INJECTION CPT-4: J3420 04/02/2015 THER/PROPH/DIAG INJ SC/IM CPT-4: 98171 03/18/2015 THER/PROPH/DIAG INJ SC/IM CPT-4: 76199 03/03/2015 THER/PROPH/DIAG INJ SC/IM CPT-4: 90518 02/18/2015 THER/PROPH/DIAG INJ SC/IM CPT-4: 36937 02/04/2015 VITAMIN B12 INJECTION CPT-4: J3420 02/04/2015 THER/PROPH/DIAG INJ SC/IM CPT-4: 86129 01/22/2015 THER/PROPH/DIAG INJ SC/IM CPT-4: 89494 01/08/2015 VITAMIN B12 INJECTION CPT-4: J3420 01/08/2015 THER/PROPH/DIAG INJ SC/IM CPT-4: 23690 12/25/2014 VITAMIN B12 INJECTION CPT-4: J3420 12/25/2014 THER/PROPH/DIAG INJ SC/IM CPT-4: 74604 12/10/2014 VITAMIN B12 INJECTION CPT-4: J3420 12/10/2014 THER/PROPH/DIAG INJ SC/IM CPT-4: 44473 11/26/2014 VITAMIN B12 INJECTION CPT-4: J3420 11/26/2014 THER/PROPH/DIAG INJ SC/IM CPT-4: 58660 11/12/2014 VITAMIN B12 INJECTION CPT-4: J3420 11/12/2014 THER/PROPH/DIAG INJ SC/IM CPT-4: 05418 10/28/2014 Vital Signs Date Vital 07/06/2017 Blood Pressure 1: 132/66 Code : 8480-6 BMI: 29.4 Code : 46136-2 Heart Rate 1 : 85 bpm Height: 5'6" SpO2: 97% Weight: 182 lbs 06/05/2017 BMI: 29.1 Code: 25055-2 Height: 5'6" Weight: 180 lbs 05/25/2017 Blood Pressure 1: 126/76 Code : 8480-6 BMI: 29.1 Code : 63886-5 Heart Rate 1 : 77 bpm Height: 5'6" SpO2: 97% Weight: 180 lbs 03/23/2017 Blood Pressure 1: 142/84 Code : 8480-6 BMI: 29.1 Code : 28152-1 Heart Rate 1 : 91 bpm Height: 5'6" SpO2: 97% Weight: 180 lbs 01/23/2017 Blood Pressure 1: 150/90 Code : 8480-6 BMI: 29.9 Code : 18490-5 Heart Rate 1 : 81 bpm Height: 5'6" SpO2: 97% Weight: 185 lbs 11/02/2016 Blood Pressure 1: 148/78 Code : 8480-6 BMI: 29.7 Code : 15627-9 Heart Rate 1 : 87 bpm Height: 5'6" SpO2: 97% Weight: 184 lbs 09/29/2016 Blood Pressure 1: 128/78 Code : 8480-6 BMI: 29.7 Code : 97428-6 Heart Rate 1 : 78 bpm Height: 5'6" SpO2: 98% Weight: 184 lbs 07/26/2016 Blood Pressure 1: 138/72 Code : 8480-6 BMI: 30.0 Code : 24539-8 Heart Rate 1 : 85 bpm Height: 5'6" SpO2: 97% Weight: 186 lbs 05/30/2016 Blood Pressure 1: 132/76 Code : 8480-6 BMI: 30.0 Code : 93658-9 Heart Rate 1 : 80 bpm Height: 5'6" SpO2: 98% Waist Measure (cm): 99 cm Weight: 186 lbs 05/25/2016 Blood Pressure 1: 132/76 Code : 8480-6 BMI: 30.0 Code : 91279-3 Heart Rate 1 : 80 bpm Height: 5'6" SpO2: 96% Weight: 186 lbs 02/25/2016 Blood Pressure 1: 110/64 Code : 8480-6 Heart Rate 1: 82 bpm Height: SpO2: 96% Weight: 01/25/2016 Blood Pressure 1: 118/70 Code : 8480-6 BMI: 30.0 Code : 67130-8 Heart Rate 1 : 78 bpm Height: 5'6" SpO2: 97% Weight: 186 lbs 11/11/2015 Blood Pressure 1: 128/82 Code : 8480-6 BMI: 29.2 Code : 07303-0 Heart Rate 1 : 86 bpm Height: 5'6" SpO2: 96% Temperature: 36.4 (C) / 97.6 (F) Weight: 181 lbs 10/12/2015 Blood Pressure 1: 118/70 Code : 8480-6 BMI: 29.2 Code : 64906-3 Heart Rate 1 : 81 bpm Height: 5'6" SpO2: 95% Weight: 181 lbs 09/03/2015 Blood Pressure 1: 138/78 Code : 8480-6 BMI: 29.9 Code : 18534-5 Heart Rate 1 : 88 bpm Height: 5'6" SpO2: 97% Weight: 185 lbs 05/19/2015 Blood Pressure 1: 146/78 Code : 8480-6 BMI: 30.0 Code : 21143-8 Heart Rate 1 : 66 bpm Height: 5'6" SpO2: 97% Weight: 186 lbs 05/12/2015 Blood Pressure 1: 120/70 Code : 8480-6 BMI: 29.9 Code : 69891-5 Heart Rate 1 : 89 bpm Height: 5'6" SpO2: 95% Weight: 185 lbs 01/13/2015 Blood Pressure 1: 140/90 Code : 8480-6 BMI: 30.3 Code : 59442-3 Heart Rate 1 : 84 bpm Height: 5'6" SpO2: 95% Weight: 188 lbs 12/16/2014 Blood Pressure 1: 140/82 Code : 8480-6 BMI: 29.5 Code : 94365-8 Heart Rate 1 : 86 bpm Height: 5'6" Weight: 183 lbs Functional Status No Functional Status data History of Present Illness Symptom Name Status Result Effective Date Notes Hospital Follow Up _ pneumonia 07/06/2017 None sores Location-Major on the upper body 07/06/2017 None sores Location-Major on the lower body 07/06/2017 None oral pain Location on the mobile tongue 07/06/2017 None oral pain Quality burning 07/06/2017 None oral pain Quality acute 07/06/2017 None oral pain Onset and Resolution sudden in onset 07/06/2017 None oral pain Onset of Symptom _ days ago 07/06/2017 None oral pain Pertinent Findings Denies decreased energy level 07/06/2017 None oral pain Pertinent Findings pain with oral intake 07/06/2017 None Annual Medicare Wellness Exam Alcohol Use does not drink any alcohol 06/05/2017 None Annual Medicare Wellness Exam Aspirin Use no 06/05/2017 None Annual Medicare Wellness Exam Blood Glucose (self reported) high (126 or higher) 06/05/2017 None Annual Medicare Wellness Exam Blood Pressure (self reported ) high (140/90 or higher) 06/05/2017 None Annual Medicare Wellness Exam Cholesterol (self reported) don't know 06/05/2017 None Annual Medicare Wellness Exam Depression (last 6 months) almost never 06/05/2017 None Annual Medicare Wellness Exam Depression or Hopelessness almost never 06/05/2017 None Annual Medicare Wellness Exam Describe Your Health good 06/05/2017 None Annual Medicare Wellness Exam Exercise Habits does not exercise 06/05/2017 None Annual Medicare Wellness Exam Handling Stress usually bryan effectively 06/05/2017 None Annual Medicare Wellness Exam Hemaglobin A-1C (self reported ) don't know 06/05/2017 None Annual Medicare Wellness Exam Hours of Sleep 4-5 06/05/2017 None Annual Medicare Wellness Exam Interaction with Friends yes 06/05/2017 None Annual Medicare Wellness Exam Interests & Pleasure almost never 06/05/2017 None Annual Medicare Wellness Exam Life Satisfaction satisfied 06/05/2017 None Annual Medicare Wellness Exam Motor Vehicle Safety always fastens seat belt: y 06/05/2017 None Annual Medicare Wellness Exam Nutrition servings of vegetables / fruit per day: 2 06/05/2017 None Annual Medicare Wellness Exam Smoking and Tobacco Use non smoker 06/05/2017 None Annual Medicare Wellness Exam Social & Emotional Support usually 06/05/2017 None Annual Medicare Wellness Exam Stress almost never 06/05/2017 None Annual Medicare Wellness Exam Sun Exposure protects skin when outdoors: n 06/05/2017 None hypertension Quality stable 05/25/2017 None hypertension Onset and Resolution ongoing 05/25/2017 None hypertension Onset of Symptom during adulthood 05/25/2017 None hypertension Blood Pressure Values patient checking blood pressure at home - did not bring in readings 05/25/2017 - checks them every other day hypertension Alleviating Factors medication 05/25/2017 None hypertension Pertinent Findings dizziness 05/25/2017 (occasional) hypertension Pertinent Findings dyspnea 05/25/2017 with exertion hypertension Pertinent Findings Denies edema 05/25/2017 None vertigo Quality intermittent 05/25/2017 None vertigo Onset and Resolution ongoing 05/25/2017 None vertigo Onset of Symptom 1 months ago 05/25/2017 None vertigo Pertinent Findings dizziness 05/25/2017 None vertigo Pertinent Findings ear pain 05/25/2017 None nausea Onset and Resolution ongoing 05/25/2017 None nausea Quality intermittent 05/25/2017 None nausea Pertinent Findings Denies emesis 05/25/2017 None nausea Pertinent Findings medication use 05/25/2017 None muscle weakness Location diffusely 05/25/2017 None muscle weakness Location in the distal muscles 05/25/2017 legs muscle weakness Location in the girdle muscles 05/25/2017 upper body muscle weakness Quality both sides 05/25/2017 None muscle weakness Quality upper extremities 05/25/2017 None muscle weakness Quality lower extremities 05/25/2017 None muscle weakness Quality acute 05/25/2017 None muscle weakness Quality constant 05/25/2017 None muscle weakness Quality intermittent 05/25/2017 worse with activity muscle weakness Quality worsening 05/25/2017 None muscle weakness Onset and Resolution sudden in onset 05/25/2017 None muscle weakness Onset and Resolution ongoing 05/25/2017 None muscle weakness Pertinent Findings lethargy 05/25/2017 None muscle weakness Location diffusely 03/23/2017 None muscle weakness Quality both sides 03/23/2017 None muscle weakness Quality upper extremities 03/23/2017 None muscle weakness Quality lower extremities 03/23/2017 None muscle weakness Quality constant 03/23/2017 None muscle weakness Quality acute 03/23/2017 None muscle weakness Quality worsening 03/23/2017 None muscle weakness Onset and Resolution sudden in onset 03/23/2017 None muscle weakness Onset and Resolution ongoing 03/23/2017 None muscle weakness Pertinent Findings lethargy 03/23/2017 None fatigue Quality acute 03/23/2017 None fatigue Quality chronic 03/23/2017 None fatigue Quality constant 03/23/2017 None fatigue Quality worsening 03/23/2017 None fatigue Onset and Resolution sudden in onset 03/23/2017 None fatigue Onset and Resolution ongoing 03/23/2017 None fatigue Onset of Symptom _ months ago 03/23/2017 None fatigue Pertinent Findings depressed mood 03/23/2017 None fatigue Pertinent Findings dizziness 03/23/2017 None fatigue Pertinent Findings Denies dyspnea 03/23/2017 None fatigue Pertinent Findings weakness 03/23/2017 None dizziness Quality feelings of unsteadiness 03/23/2017 None dizziness Quality imbalance 03/23/2017 None dizziness Quality worsening 03/23/2017 None dizziness Onset and Resolution ongoing 03/23/2017 None dizziness Pertinent Findings imbalance 03/23/2017 None muscle weakness Location in the girdle muscles 03/23/2017 upper body muscle weakness Location in the distal muscles 03/23/2017 legs muscle weakness Quality both sides 03/23/2017 None muscle weakness Quality upper extremities 03/23/2017 None muscle weakness Quality lower extremities 03/23/2017 None muscle weakness Quality intermittent 03/23/2017 worse with activity hypertension Quality stable 01/23/2017 None hypertension Onset and Resolution ongoing 01/23/2017 None hypertension Onset of Symptom during adulthood 01/23/2017 None hypertension Blood Pressure Values patient checking blood pressure at home - did not bring in readings 01/23/2017 - checks them every other day hypertension Alleviating Factors medication 01/23/2017 None hypertension Pertinent Findings dizziness 01/23/2017 (occasional) hypertension Pertinent Findings dyspnea 01/23/2017 with exertion hypertension Pertinent Findings Denies edema 01/23/2017 None headache Location in the left temporal region 01/23/2017 None headache Quality intermittent 01/23/2017 None headache Onset and Resolution ongoing 01/23/2017 None headache Onset of Symptom 2 weeks ago 01/23/2017 None headache Limitation on Activities does not limit activities 01/23/2017 None headache Frequency of Episodes daily 01/23/2017 None headache Pertinent Findings Denies awakens from sleep 01/23/2017 "doesn't really happen at night" headache Pertinent Findings dizziness 01/23/2017 None vertigo Quality intermittent 01/23/2017 None vertigo Onset and Resolution ongoing 01/23/2017 None vertigo Onset of Symptom 1 months ago 01/23/2017 None vertigo Pertinent Findings dizziness 01/23/2017 None vertigo Pertinent Findings ear pain 01/23/2017 None back pain Location lumbar-sacral spine 11/02/2016 None back pain Quality aching 11/02/2016 None back pain Quality constant 11/02/2016 None back pain Onset and Resolution ongoing 11/02/2016 None hypertension Quality stable 09/29/2016 None hypertension Onset and Resolution ongoing 09/29/2016 None hypertension Onset of Symptom during adulthood 09/29/2016 None hypertension Alleviating Factors medication 09/29/2016 None hypertension Pertinent Findings dizziness 09/29/2016 (occasional) hypertension Pertinent Findings dyspnea 09/29/2016 with exertion hypertension Pertinent Findings Denies edema 09/29/2016 None hypothyroid Onset and Resolution ongoing 09/29/2016 None hypothyroid Alleviating Factors medication 09/29/2016 None hypertension Blood Pressure Values patient checking blood pressure at home - did not bring in readings 09/29/2016 - checks them every other day Post-op wound General Recovery as anticipated 09/29/2016 None Post-op wound Procedure Performed foot surgery 09/29/2016 None back pain Quality chronic 09/29/2016 None back pain Quality constant 09/29/2016 None back pain Onset and Resolution ongoing 09/29/2016 None back pain Alleviating Factors medication 09/29/2016 None back pain Exacerbating Factors activity 09/29/2016 None abdominal pain Quality chronic 09/29/2016 None abdominal pain Quality intermittent 09/29/2016 None abdominal pain Onset and Resolution ongoing 09/29/2016 -associated with loose , watery stools arm pain Location left arm 09/29/2016 None arm pain Radiating to the hand 09/29/2016 None arm pain Quality acute 09/29/2016 None arm pain Quality aching 09/29/2016 None arm pain Onset and Resolution sudden in onset 09/29/2016 None arm pain Onset of Symptom 3 days ago 09/29/2016 None arm pain Mechanism of injury unknown 09/29/2016 None hypertension Quality intermittent 07/26/2016 - she states that her blood hypertension Onset and Resolution sudden in onset 07/26/2016 None hypertension Onset of Symptom 2 weeks ago 07/26/2016 None hypertension Pertinent Findings dizziness 07/26/2016 None Annual Medicare Wellness Exam Alcohol Use does not drink any alcohol 05/30/2016 None Annual Medicare Wellness Exam Aspirin Use no 05/30/2016 None Annual Medicare Wellness Exam Blood Glucose (self reported) don't know 05/30/2016 None Annual Medicare Wellness Exam Blood Pressure (self reported ) don't know 05/30/2016 None Annual Medicare Wellness Exam Cholesterol (self reported) desireable (below 200) 05/30/2016 None Annual Medicare Wellness Exam Depression (last 6 months) some of the time 05/30/2016 None Annual Medicare Wellness Exam Depression or Hopelessness almost never 05/30/2016 None Annual Medicare Wellness Exam Describe Your Health fair 05/30/2016 None Annual Medicare Wellness Exam Exercise Habits does not exercise 05/30/2016 None Annual Medicare Wellness Exam Handling Stress usually bryan effectively 05/30/2016 None Annual Medicare Wellness Exam Hemaglobin A-1C (self reported ) don't know 05/30/2016 None Annual Medicare Wellness Exam Hours of Sleep 5 05/30/2016 None Annual Medicare Wellness Exam Interaction with Friends yes 05/30/2016 None Annual Medicare Wellness Exam Interests & Pleasure some of the time 05/30/2016 None Annual Medicare Wellness Exam Life Satisfaction satisfied 05/30/2016 None Annual Medicare Wellness Exam Motor Vehicle Safety always fastens seat belt: y 05/30/2016 None Annual Medicare Wellness Exam Motor Vehicle Safety drives after drinking: n 05/30/2016 None Annual Medicare Wellness Exam Motor Vehicle Safety rides with someone who has been drinking: n 2015 None Annual Medicare Wellness Exam Nutrition servings of fried food / high fat foods per day: 0 2015 None Annual Medicare Wellness Exam Nutrition servings of high fiber / whole grain per day: 1 05/30/2016 None Annual Medicare Wellness Exam Nutrition servings of vegetables / fruit per day: 1 05/30/2016 None Annual Medicare Wellness Exam Smoking and Tobacco Use non smoker 05/30/2016 None Annual Medicare Wellness Exam Social & Emotional Support always 05/30/2016 None Annual Medicare Wellness Exam Stress almost never 05/30/2016 None Annual Medicare Wellness Exam Sun Exposure protects skin when outdoors: y 05/30/2016 None insomnia Quality difficulty falling asleep 05/25/2016 None insomnia Quality disrupted sleep 05/25/2016 None insomnia Onset and Resolution ongoing 05/25/2016 None insomnia Onset of Symptom months ago 05/25/2016 None hypertension Quality stable 05/25/2016 None hypertension Onset and Resolution ongoing 05/25/2016 None hypertension Onset of Symptom during adulthood 05/25/2016 None hypertension Blood Pressure Values not checking blood pressure at home 05/25/2016 None hypertension Alleviating Factors medication 05/25/2016 None hypertension Pertinent Findings dizziness 05/25/2016 (occasional) hypertension Pertinent Findings dyspnea 05/25/2016 with exertion hypertension Pertinent Findings Denies edema 05/25/2016 None hypothyroid Onset and Resolution ongoing 05/25/2016 None hypothyroid Alleviating Factors medication 05/25/2016 None headache Quality chronic 05/25/2016 None headache Quality intermittent 05/25/2016 None headache Onset and Resolution ongoing 05/25/2016 None headache Frequency of Episodes daily 05/25/2016 None headache Pertinent Findings nausea 05/25/2016 None chest pain/pressure Location in the substernal area 02/25/2016 None chest pain/pressure Location on the left side of on the chest 02/25/2016 None chest pain/pressure Radiating the back 02/25/2016 None chest pain/pressure Radiating the left arm 02/25/2016 None chest pain/pressure Quality dull 02/25/2016 None chest pain/pressure Quality intermittent 02/25/2016 None chest pain/pressure Quality pressure 02/25/2016 None chest pain/pressure Pertinent Findings Denies dyspnea 02/25/2016 None chest pain/pressure Pertinent Findings chills 02/25/2016 None chest pain/pressure Pertinent Findings nausea 02/25/2016 None insomnia Quality difficulty falling asleep 01/25/2016 None insomnia Onset and Resolution ongoing 01/25/2016 None insomnia Onset of Symptom months ago 01/25/2016 None insomnia Pertinent Findings Denies dizziness 01/25/2016 None insomnia Pertinent Findings Denies dyspnea 01/25/2016 None hypertension Quality stable 01/25/2016 None hypertension Onset and Resolution ongoing 01/25/2016 None hypertension Blood Pressure Values not checking blood pressure at home 01/25/2016 None hypertension Alleviating Factors medication 01/25/2016 None hypertension Pertinent Findings Denies dizziness 01/25/2016 None hypertension Pertinent Findings Denies dyspnea 01/25/2016 None hypertension Pertinent Findings Denies edema 01/25/2016 None nausea Onset and Resolution ongoing 01/25/2016 None nausea Quality intermittent 01/25/2016 None insomnia Quality disrupted sleep 01/25/2016 None hypothyroid Onset and Resolution ongoing 01/25/2016 None hypothyroid Alleviating Factors medication 01/25/2016 None hypertension Onset of Symptom during adulthood 01/25/2016 None nausea Quality improving 01/25/2016 None nausea Frequency of Episodes decreasing 01/25/2016 None cough Location in the throat 11/11/2015 None cough Onset and Resolution ongoing 11/11/2015 None cough Onset of Symptom 1 weeks ago 11/11/2015 None cough Pertinent Findings dyspnea 11/11/2015 None cough Pertinent Findings Denies fever 11/11/2015 None insomnia Quality difficulty falling asleep 10/12/2015 None insomnia Onset and Resolution ongoing 10/12/2015 None insomnia Onset of Symptom _ months ago 10/12/2015 None insomnia Pertinent Findings Denies dizziness 10/12/2015 None insomnia Pertinent Findings Denies dyspnea 10/12/2015 None hypertension Quality stable 10/12/2015 None hypertension Onset and Resolution ongoing 10/12/2015 None nausea Onset and Resolution ongoing 10/12/2015 None nausea Quality intermittent 10/12/2015 None hypertension Pertinent Findings Denies edema 10/12/2015 None hypertension Pertinent Findings Denies dyspnea 10/12/2015 None hypertension Pertinent Findings Denies dizziness 10/12/2015 None hypertension Alleviating Factors medication 10/12/2015 None hypertension Blood Pressure Values not checking blood pressure at home 10/12/2015 None headache Location diffusely 09/03/2015 None headache Quality intermittent 09/03/2015 None headache Onset of Symptom _ months ago 09/03/2015 None headache Pertinent Findings anxiety 09/03/2015 None headache Pertinent Findings awakens from sleep 09/03/2015 None headache Pertinent Findings Denies dizziness 09/03/2015 None insomnia Quality difficulty falling asleep 09/03/2015 None insomnia Onset and Resolution ongoing 09/03/2015 None insomnia Onset of Symptom _ months ago 09/03/2015 None insomnia Pertinent Findings Denies dizziness 09/03/2015 None insomnia Pertinent Findings Denies dyspnea 09/03/2015 None hypertension Quality stable 09/03/2015 None hypertension Onset and Resolution ongoing 09/03/2015 None hypertension Blood Pressure Values patient checking blood pressure at home - did not bring in readings 09/03/2015 None shoulder pain Limitation on Activities moderately limits activities 09/03/2015 None headache Onset and Resolution ongoing 09/03/2015 None headache Frequency of Episodes daily 09/03/2015 None shoulder pain Onset and Resolution ongoing 09/03/2015 None nausea Onset and Resolution ongoing 09/03/2015 None nausea Quality constant 09/03/2015 None headache Location diffusely 05/19/2015 None headache Quality intermittent 05/19/2015 None headache Onset of Symptom _ months ago 05/19/2015 None headache Frequency of Episodes weekly 05/19/2015 not every day headache Pertinent Findings anxiety 05/19/2015 None headache Pertinent Findings awakens from sleep 05/19/2015 None headache Pertinent Findings Denies dizziness 05/19/2015 None insomnia Quality difficulty falling asleep 05/19/2015 None insomnia Onset of Symptom _ months ago 05/19/2015 None insomnia Pertinent Findings Denies dizziness 05/19/2015 None insomnia Pertinent Findings Denies dyspnea 05/19/2015 None headache Onset and Resolution resolved 05/19/2015 very mild; improved insomnia Onset and Resolution ongoing 05/19/2015 States it has improved hypertension Quality stable 05/19/2015 None hypertension Onset and Resolution ongoing 05/19/2015 None hypertension Blood Pressure Values patient checking blood pressure at home - did not bring in readings 05/19/2015 None hypertension Pertinent Findings dizziness 05/19/2015 None hypertension Pertinent Findings Denies dyspnea 05/19/2015 None new lesion Location-Head/Neck on the right cheek 05/19/2015 None new lesion Location-Major on the neck 05/19/2015 None new lesion Onset and Resolution gradual in onset 05/19/2015 None shoulder pain Quality improving 05/19/2015 None shoulder pain Limitation on Activities moderately limits activities 05/19/2015 None headache Location diffusely 05/12/2015 None headache Onset and Resolution ongoing 05/12/2015 None headache Onset of Symptom _ months ago 05/12/2015 None headache Pertinent Findings anxiety 05/12/2015 None headache Pertinent Findings awakens from sleep 05/12/2015 None headache Pertinent Findings dizziness 05/12/2015 None insomnia Quality difficulty falling asleep 05/12/2015 None insomnia Onset of Symptom _ months ago 05/12/2015 None insomnia Pertinent Findings dizziness 05/12/2015 None insomnia Pertinent Findings Denies dyspnea 05/12/2015 None headache Quality intermittent 05/12/2015 None headache Frequency of Episodes daily 05/12/2015 None headache Frequency of Episodes unchanged 05/12/2015 None headache Pertinent Findings ataxia 05/12/2015 None nausea Onset of Symptom _ months ago 05/12/2015 None nausea Alleviating Factors medication 05/12/2015 None nausea Pertinent Findings migraine headache 05/12/2015 None headache Alleviating Factors medication 05/12/2015 None shoulder pain Location on the right shoulder 05/12/2015 None shoulder pain Quality acute 05/12/2015 None shoulder pain Limitation on Activities moderately limits activities 05/12/2015 None shoulder pain Pertinent Findings loss of range of motion 05/12/2015 None shoulder pain Pertinent Findings limited range of motion 05/12/2015 None headache Location diffusely 01/13/2015 None headache Quality intermittent 01/13/2015 None headache Onset of Symptom _ months ago 01/13/2015 None headache Onset and Resolution ongoing 01/13/2015 None headache Frequency of Episodes weekly 01/13/2015 not every day headache Pertinent Findings awakens from sleep 01/13/2015 None headache Pertinent Findings anxiety 01/13/2015 None headache Pertinent Findings Denies dizziness 01/13/2015 None insomnia Quality difficulty falling asleep 01/13/2015 None insomnia Onset of Symptom _ months ago 01/13/2015 None insomnia Pertinent Findings Denies dizziness 01/13/2015 None insomnia Pertinent Findings Denies dyspnea 01/13/2015 None hypothyroid Quality chronic 12/16/2014 None hypothyroid Onset and Resolution ongoing 12/16/2014 None hypothyroid Onset of Symptom during adulthood 12/16/2014 None hypothyroid Frequency of Episodes increasing 12/16/2014 None hypertension Quality chronic 12/16/2014 None hypertension Onset and Resolution ongoing 12/16/2014 None hypertension Onset of Symptom during adulthood 12/16/2014 None hypertension Severity not consistently severe symptoms, the symptoms fluctuate from no symptoms to anxiety and headaches 12/16/2014 None hypertension Blood Pressure Values not checking blood pressure at home 12/16/2014 None hypertension Frequency of Episodes unchanged 12/16/2014 None hypertension Triggers no known associated factors 12/16/2014 None hypertension Alleviating Factors medication 12/16/2014 None hypertension Pertinent Findings Denies dizziness 12/16/2014 None hypertension Pertinent Findings Denies dyspnea 12/16/2014 None hypertension Pertinent Findings Denies edema 12/16/2014 None back pain Location in the left upper back area 12/16/2014 None back pain Location in the right upper back area 12/16/2014 None back pain Quality chronic 12/16/2014 None back pain Onset and Resolution ongoing 12/16/2014 None Advance Directives No Advance Directive data Encounters Encounter Performer Location Codes ([id number]) [id number] EST. PATIENT, LEVEL IV Diagnosis: Atrophy of thyroid (acquired)[ICD10: E03.4] Diagnosis: Cough[ICD10: R05] Diagnosis: Laceration without foreign body of left forearm, initial encounter[ ICD10: S51.812A] Diagnosis: Candidiasis of skin and nail[ICD10: B37.2] Diagnosis: Other vitamin B12 deficiency anemias[ICD10: D51.8] Diagnosis: Slow transit constipation[ICD10: K59.01] Yarely Vega MD, [facility] CPT-4: 17452 07/06/2017 [id number]) [id number] EST. PATIENT, LEVEL IV Diagnosis: Essential (primary) hypertension[ICD10: I10] Diagnosis: Chronic atrial fibrillation[ICD10: I48.2] Diagnosis: Atrophy of thyroid (acquired)[ICD10: E03.4] Diagnosis: 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 factor deficiency[ ICD10: D51.0] Yarely Vega MD, [facility] CPT-4: 04760 05/25/2017 [id number]) [id number] EST. 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 PATIENT, LEVEL IV Diagnosis: Type 2 diabetes mellitus without complications[ICD10: E11.9] Diagnosis: Essential (primary) hypertension[ICD10: I10] Diagnosis: Headache[ICD10: R51] Diagnosis: Atrophy of thyroid (acquired)[ICD10: E03.4] Diagnosis: Vitamin B12 deficiency anemia, unspecified[ICD10: D51.9] Yarely Vega MD, [facility] CPT-4: 67859 01/23/2017 14303 EST. PATIENT, LEVEL III Diagnosis: Low back pain[ICD10: M54.5] Diagnosis: Pain in thoracic spine[ICD10: M54.6] Brianna Vega MD, [facility] CPT-4: 87369 11/02/2016 [id number]) 52490 EST. PATIENT, LEVEL IV Diagnosis: Essential (primary) hypertension[ICD10: I10] Diagnosis: Other vitamin B12 deficiency anemias[ICD10: D51.8] Diagnosis: Generalized abdominal pain[ICD10: R10.84] Yarely Vega MD, [facility] CPT-4: 49433 09/29/2016 ([id number]) 30051 EST. PATIENT, LEVEL IV Diagnosis: Essential (primary) hypertension[ICD10: I10] Yarely Vega MD [facility] CPT-4: 40504 07/26/2016 ([id number]) 46756 EST. PATIENT, LEVEL IV Diagnosis: Benign lipomatous neoplasm of skin and subcutaneous tissue of right leg[ICD10: D17.23] Diagnosis: Pain in right ankle and joints of right foot[ICD10: M25.571] Diagnosis: Encounter for immunization[ICD10: Z23] Diagnosis: Vitamin B12 deficiency anemia, unspecified[ICD10: D51.9] Yarely Vega MD, [facility] CPT-4: 48245 05/25/2016 92756 EST. PATIENT, LEVEL III Diagnosis: Other chest pain[ICD10: R07.89] Diagnosis: Other vitamin B12 deficiency anemias[ICD10: D51.8] Brianna Vega MD, [facility] CPT-4: 63166 02/25/2016 ([id number]) 31490 EST. 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 PATIENT, LEVEL III Diagnosis: Other vitamin B12 deficiency anemias[ICD10: D51.8] Diagnosis: Acute nasopharyngitis [common cold][ICD10: J00] Diagnosis: Other allergic rhinitis[ICD10: J30.89] Brianna Vgea MD, [facility] CPT-4: 66425 11/11/2015 ([id number]) 80787 EST. PATIENT, LEVEL IV Diagnosis: Essential tremor[ICD10: G25.0] Diagnosis: Chronic fatigue, unspecified[ICD10: R53.82] Diagnosis: Other hypersomnia[ICD10: G47.19] Diagnosis: Essential (primary) hypertension[ICD10: I10] Yarely Vega MD, [facility] CPT-4: 53117 10/12/2015 ([id number]) 40961 EST. PATIENT, LEVEL IV Diagnosis: Essential (primary) hypertension[ICD10: I10] Diagnosis: Chronic atrial fibrillation[ICD10: I48.2] Diagnosis: Abnormal levels of other serum enzymes[ICD10: R74.8] Diagnosis: Type 2 diabetes mellitus without complications[ICD10: E11.9] Diagnosis: Vitamin B12 deficiency anemia, unspecified[ICD10: D51.9] Yarely Vega MD, [facility] CPT-4: 79361 09/03/2015 ([id number]) 88626 EST. PATIENT, LEVEL III Diagnosis: Nausea[ICD10: R11.0] Diagnosis: Essential tremor[ICD10: G25.0] Diagnosis: Actinic keratosis[ICD10: L57.0] Yarely Vega MD, [facility] CPT- 4: 86169 05/19/2015 ([id number]) 87639 EST. PATIENT, LEVEL IV Diagnosis: Vitamin B12 deficiency anemia, unspecified[ICD10: D51.9] Diagnosis: Chronic atrial fibrillation[ICD10: I48.2] Diagnosis: Headache[ICD10: R51] Diagnosis: Chronic fatigue, unspecified[ICD10: R53.82] Diagnosis: Cervicalgia[ICD10: M54.2] Yarely Vega MD, [facility] CPT-4: 88432 05/12/2015 ([id number]) 48125 EST. PATIENT, LEVEL IV Diagnosis: ESSENTIAL HYPERTENSION[ICD9: 401.9] Diagnosis: Afib[ICD9: 427.31] Diagnosis: Anxiety[ICD9: 300.00] Diagnosis: Insomnia[ICD9: 780.52] Yarely Vega MD, [facility] CPT-4: 65624 01/13/2015 ([id number]) OFFICE VISIT, NEW - LEVEL 4 Diagnosis: Hypothyroidism[ICD9: 244.9] Diagnosis: DIABETES TYPE II[ICD9: 250.00] Diagnosis: ESSENTIAL HYPERTENSION[ICD9: 401.9] Diagnosis: Afib[ICD9: 427.31] Diagnosis: Anxiety[ICD9: 300.00] Diagnosis: B12 deficiency[ICD9: 266.2] [facility] CPT-4: 82490 12/16/2014 Plan of Care Planned Activity Notes Codes Status Date Visit Plan: Hypothyroidism - pt with chronic hypothyroidism , continue with current medication, will monitor pt to signs or symptoms of lack of adequate supplementation. Pt is to continue with current dose of medication unless directed otherwise. Check labs at regular intervals wither q 3 months or q 6 months based on previous levels of control. Constipation - uncontrolled - I have discussed with the patient the need for adequate fiber and water intake to facilitate soft, easily passed stools. The pt noted understanding of our conversation. I have given the patient a recipe for "power pudding" - equal parts, bran flakes, prune juice, and apple sauce. The pt is to call if symptoms not improved on this regimen. Skin tear - nakita razo coban, pt to change every 2 days and call if not resolving. Yeast infection of gluteus - rx for nystatin powder. Cough improving - continue with current treatment plan and mucinex 07/06/2017 Patient Education: Patient Medication Summary Completed 07/06/2017 Appointment: Bri[facility] Otoole [facility]el[phone] [id number] (15 min) Moderate 06/20/2017 Visit Plan: Medicare Exam - today we discussed the patients past history, immunizations, preventative exams/evaluations - colonoscopy, fecal occult blood testing, routine labs for renal function, glucose, cholesterol, osteoporosis evaluations, cardiovascular testing and cancer screenings. We have also discussed mental health and the signs/symptoms of depression. The patient was advised of home safety evaluations and the need to make sure that as the aging process continues, we need to be aware of different ways to make the home a safer place to reside. The patient has also been counseled that exercise is necessary - and of utmost importance as we age to help decrease fall risk and to maintain independece in the home. Today we discussed the need for the patient to create paperwork for Advanced directives as well as for the patient to provide this office with a copy of her [employer]OP[employer] paperwork for health care surrogate. 06/05/2017 Appointment: Injection 06/05/2017 Appointment: Brianna Otoole WPtel: [phone] [facility] [facility] - Annual Wellness Visit 06/05/2017 Patient Education: Patient Medication Summary Completed 06/05/2017 Visit Plan: Hypertension - well controlled - continue with current medications, continue with no added salt diet. Pt has been encouraged to exercise daily. The pt has been advised to call the office if there are any acute concerns about change in blood pressure readings at home. Atrial Fibrillation - pt on chronic anticoagulation and is currently rate controlled. The pt is to have labs done as appropriate to monitor medication levels and is to report if they start to feel as if their heart rate is becoming uncontrolled. Hypothyroidism - pt with chronic hypothyroidism, continue with current medication, will monitor pt to signs or symptoms of lack of adequate supplementation. Pt is to continue with current dose of medication unless directed otherwise. Check labs at regular intervals wither q 3 months or q 6 months based on previous levels of control. 05/25/2017 Appointment: Yarely Vega [facility]Ptel[facility] (15 min) Moderate 05/25/2017 Patient Education: Patient Medication Summary Completed 05/25/2017 Patient Education: Hypertension Completed 05/25/2017 Appointment: Injection 05/16/2017 Patient Education: Patient Medication Summary Completed 05/16/2017 Appointment: Injection 05/01/2017 Patient Education: Patient Medication Summary Completed 05/01/2017 Appointment: Injection 04/18/2017 Patient Education: Patient Medication Summary Completed 04/18/2017 Appointment: Injection 04/06/2017 Patient Education: Patient Medication Summary Completed 04/06/2017 Visit Plan: Diabetes Mellitus - controlled - per recent FSBS reports. I have recommended for the patient to have follow up labs prior to the next office visit. The patient has been instructed to continue with current medications as previously directed, continue with regular FSBS monitoring to assure continued control of diabetes. Pt to call for any acute concerns, complaints, or if the blood glucose readings are starting to become less controlled. Hypothyroidism - pt with chronic hypothyroidism, continue with current medication, will monitor pt to signs or symptoms of lack of adequate supplementation. Pt is to continue with current dose of medication unless directed otherwise. Check labs at regular intervals wither q 3 months or q 6 months based on previous levels of control. Costochondritis - recommended aspercreme to chest wall. Fatigue - pt to discuss with Business Technology Professor about the possibility of amiodarone causing her fatigue/malaise. 03/23/2017 Appointment: Yarely Vega WPtel[facility] [phone] [facility] [place] (15 min) Moderate 03/23/2017 Patient Education: Patient Medication Summary Completed 03/23/2017 Appointment: Injection 03/22/2017 Patient Education: Patient Medication Summary Completed 03/22/2017 Appointment: Injection 03/09/2017 Patient Education: Patient Medication Summary Completed 03/09/2017 Appointment: Injection 02/23/2017 Patient Education: Patient Medication Summary Completed 02/23/2017 Appointment: Injection 02/09/2017 Appointment: Nurse Visit 02/09/2017 Patient Education: Patient Medication Summary Completed 02/09/2017 Visit Plan: Hypertension - uncontrolled - the patient's medications have been modified as documented in the visit note. The patient has been counseled to cut back on salt in diet for a no added salt diet, low fat diet, start an exercise program with low weight bearing exercises and higher aerobic activity for heart health. The patient is to check blood pressure readings as an outpatient and either fax, call, or email the readings to the office next week for practitioner to review. The pt is to call for acute concerns. Diabetes Mellitus - controlled - per recent FSBS reports. I have recommended for the patient to have follow up labs prior to the next office visit. The patient has been instructed to continue with current medications as previously directed, continue with regular FSBS monitoring to assure continued control of diabetes. Pt to call for any acute concerns, complaints, or if the blood glucose readings are starting to become less controlled. Seasonal allergies - loratadine - generic for CLARITIN - take 10mg daily. you may take a 1/2 benadryl at bedtime if needed for the itching. AVENO - body wash - make sure it is the body wash for skin calming. Headache - topamax - increase dose to twice daily. 01/23/2017 Visit Plan: Hypertension - uncontrolled - the patient's medications have been modified as documented in the visit note. The patient has been counseled to cut back on salt in diet for a no added salt diet, low fat diet, start an exercise program with low weight bearing exercises and higher aerobic activity for heart health. The patient is to check blood pressure readings as an outpatient and either fax, call, or email the readings to the office next week for practitioner to review. The pt is to call for acute concerns. Diabetes Mellitus - controlled - per recent FSBS reports. I have recommended for the patient to have follow up labs prior to the next office visit. The patient has been instructed to continue with current medications as previously directed, continue with regular FSBS monitoring to assure continued control of diabetes. Pt to call for any acute concerns, complaints, or if the blood glucose readings are starting to become less controlled. Seasonal allergies - loratadine - generic for CLARITIN - take 10mg daily. you may take a 1/2 benadryl at bedtime if needed for the itching. AVENO - body wash - make sure it is the body wash for skin calming. Headache - topamax - increase dose to twice daily. 01/23/2017 Appointment: Yarely Vega WPtel: [phone] [facility] (15 min) Moderate 01/23/2017 Patient Education: Patient Medication Summary Completed 01/23/2017 Appointment: Injection 01/10/2017 Patient Education: Patient Medication Summary Completed 01/10/2017 Appointment: Injection 12/28/2016 Patient Education: Patient Medication Summary Completed 12/28/2016 Appointment: Injection 12/14/2016 Patient Education: Patient Medication Summary Completed 12/14/2016 Appointment: Injection 11/24/2016 Patient Education: Patient Medication Summary Completed 11/24/2016 Appointment: Injection 11/07/2016 Patient Education: Patient Medication Summary Completed 11/07/2016 Visit Plan: Low back pain- ongoing - will order back brace for support and pain relief - the patient was instructed in appropriate posture , need for weight loss to alleviate abdominal obesity that is worsening the patient's back pain.. The pt is to use prn antiinflammatories to manage acute pain. The patient is to call the office if the pain is worsening or does not improve. 11/02/2016 Appointment: Bri[facility] Otoole [facility]Ptel[phone] [facility] (15 min) Moderate 11/02/2016 Patient Education: Patient Medication Summary Completed 11/02/2016 Appointment: Injection 10/24/2016 Patient Education: Patient Medication Summary Completed 10/24/2016 Visit Plan: Hypertension - well controlled - continue with current medications, continue with no added salt diet. Pt has been encouraged to exercise daily. The pt has been advised to call the office if there are any acute concerns about change in blood pressure readings at home. Hypothyroidism - pt with chronic hypothyroidism, continue with current medication, will monitor pt to signs or symptoms of lack of adequate supplementation. Pt is to continue with current dose of medication unless directed otherwise. Check labs at regular intervals wither q 3 months or q 6 months based on previous levels of control. Abdominal pain - continue with carafate 09/29/2016 Appointment: Yarely Vega WPtel: [phone] [facility] [place] (15 min) Moderate 09/29/2016 Patient Education: Patient Medication Summary Completed 09/29/2016 Appointment: [facility]arely [facility]ega [facility]Ptel[facility] [phone] [facility] [place] (15 min) Moderate 09/27/2016 Appointment: Yraely Vega WPtel: [phone] [facility] [place] (15 min) Moderate 09/20/2016 Appointment: Yarely Vega WPtel: [phone] [facility] [place] (15 min) Moderate 09/20/2016 Patient Education: Patient Medication Summary Completed 09/06/2016 Appointment: Yarely Vega WPtel: [phone] [facility] [place] (15 min) Moderate 08/30/2016 Appointment: Injection 08/29/2016 Patient Education: Patient Medication Summary Completed 08/29/2016 Appointment: Injection 08/04/2016 Patient Education: Patient Medication Summary Completed 08/04/2016 Visit Plan: Hypertension - uncontrolled - the patient's medications have been modified as documented in the visit note. The patient has been counseled to cut back on salt in diet for a no added salt diet, low fat diet, start an exercise program with low weight bearing exercises and higher aerobic activity for heart health. The patient is to check blood pressure readings as an outpatient and either fax, call, or email the readings to the office next week for practitioner to review. The pt is to call for acute concerns. 07/26/2016 Appointment: Yarely Vega WPtel[facility] [phone] [facility] (15 min) Moderate 07/26/2016 Patient Education: Patient Medication Summary Completed 07/26/2016 Patient Education: Obesity Completed 07/26/2016 Patient Education: Hypertension Completed 07/26/2016 Appointment: Injection 07/21/2016 Patient Education: Patient Medication Summary Completed 07/21/2016 Appointment: Injection 07/05/2016 Patient Education: Patient Medication Summary Completed 07/05/2016 Appointment: Injection 06/22/2016 Appointment: Lab Draw 06/22/2016 Patient Education: Patient Medication Summary Completed 06/22/2016 Appointment: Injection 06/09/2016 Referral: Genaro Bravo Patient informed. Referral info faxed Completed 06/09 Patient Education: Patient Medication Summary Completed 06/09/2016 Visit Plan: Medicare Exam - today we discussed the patients past history, immunizations, preventative exams/evaluations - colonoscopy, fecal occult blood testing, routine labs for renal function, glucose, cholesterol, osteoporosis evaluations, cardiovascular testing and cancer screenings. We have also discussed mental health and the signs/symptoms of depression. The patient was advised of home safety evaluations and the need to make sure that as the aging process continues, we need to be aware of different ways to make the home a safer place to reside. The patient has also been counseled that exercise is necessary - and of utmost importance as we age to help decrease fall risk and to maintain independece in the home. Today we discussed the need for the patient to create paperwork for Advanced directives as well as for the patient to provide this office with a copy of her DOPA paperwork for health care surrogate. 05/30/2016 Appointment: Brianna Otoole WPtel: [phone] [facility] [facility] - Annual Wellness Visit 05/30/2016 Patient Education: Patient Medication Summary Completed 05/30/2016 Patient Education: Obesity Completed 05/30/2016 Visit Plan: Hypertension - well controlled - continue with current medications, continue with no added salt diet. Pt has been encouraged to exercise daily. The pt has been advised to call the office if there are any acute concerns about change in blood pressure readings at home. Hypothyroidism - pt with chronic hypothyroidism, continue with current medication, will monitor pt to signs or symptoms of lack of adequate supplementation. Pt is to continue with current dose of medication unless directed otherwise. Check labs at regular intervals wither q 3 months or q 6 months based on previous levels of control. headaches - take topamax at bedtime 05/25/2016 Appointment: Yarely Vega WPtel: [phone] [facility] (15 min) Moderate 05/25/2016 Patient Education: Patient Medication Summary Completed 05/25/2016 Patient Education: Obesity Completed 05/25/2016 Care Plan: Referral Order SNOMED-CT : [id number] Pending 05/25/2016 Appointment: Injection 05/10/2016 Patient Education: Patient Medication Summary Completed 05/10/2016 Appointment: Injection 04/26/2016 Patient Education: Patient Medication Summary Completed 04/26/2016 Appointment: Injection 04/11/2016 Patient Education: Patient Medication Summary Completed 04/11/2016 Appointment: Injection 03/31/2016 Patient Education: Patient Medication Summary Completed 03/31/2016 Patient Education: Patient Medication Summary Completed 03/22/2016 Care Plan: [facility] [id number] Pending 03/22/2016 Appointment: Injection 03/15/2016 Patient Education: Patient Medication Summary Completed 03/15/2016 Visit Plan: Chest Pain - pt states that she has had chest pain off an on, she states that it goes down her left arm and to her back. She states that she has had some nausea. Will check labs and order EKG - pt is to notify clinic if symptoms return, or with any concerns. 02/25/2016 Appointment: Brianna Otoole WPtel: [phone] [facility] [place] (15 min) Moderate 02/25/2016 Patient Education: Patient Medication Summary Completed 02/25/2016 Appointment: Injection 02/02/2016 Patient Education: Patient Medication Summary Completed 02/02/2016 Visit Plan: Hypertension - well controlled - continue with current medications, continue with no added salt diet. Pt has been encouraged to exercise daily. The pt has been advised to call the office if there are any acute concerns about change in blood pressure readings at home. Hypothyroidism - pt with chronic hypothyroidism, continue with current medication, will monitor pt to signs or symptoms of lack of adequate supplementation. Pt is to continue with current dose of medication unless directed otherwise. Check labs at regular intervals wither q 3 months or q 6 months based on previous levels of control. 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 I suspect that she has the nocturnal hypoxemia due to her chronic atrial fibrillation and history of coronary artery disease with chronic systolic heart failure. 01/25/2016 Visit Plan: Hypertension - well controlled - continue with current medications, continue with no added salt diet. Pt has been encouraged to exercise daily. The pt has been advised to call the office if there are any acute concerns about change in blood pressure readings at home. Hypothyroidism - pt with chronic hypothyroidism, continue with current medication, will monitor pt to signs or symptoms of lack of adequate supplementation. Pt is to continue with current dose of medication unless directed otherwise. Check labs at regular intervals wither q 3 months or q 6 months based on previous levels of control. 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 01/25/2016 Patient Education: Patient Medication Summary Completed 01/25/2016 Appointment: Injection 01/18/2016 Patient Education: Patient Medication Summary Completed 01/18/2016 Appointment: Injection 12/29/2015 Patient Education: Patient Medication Summary Completed 12/29/2015 Appointment: Injection 12/08/2015 Patient Education: Patient Medication Summary Completed 12/08/2015 Appointment: Injection 11/23/2015 Patient Education: Patient Medication Summary Completed 11/23/2015 Visit Plan: URI - Pt advised to increase fluids, vitamin C. Discussed natural and expected course of this diagnosis and need to alert me if symptoms do not follow expected course, or if any worse. RX sent to patient' s pharmacy. Allergies - chronic - recommended pt to use allergy medication as prescribed. Pt has been counseled as to the appropriate use of the medication. Pt to call if allergy symptoms are not controlled with the medication. If using nasal spray, instructions as follows: Nasal spray- use twice daily, one spray per nostril twice daily, after 30 minutes, rinse out nose with saline spray.. Use opposite hand per nostril to spray in the nasal steroid allergy spray. 11/11/2015 Appointment: Injection 11/11/2015 Patient Education: Patient Medication Summary Completed 11/11/2015 Appointment: Injection 10/29/2015 Patient Education: Patient Medication Summary Completed 10/29/2015 Visit Plan: Hypertension - well controlled - continue with current medications, continue with no added salt diet. Pt has been encouraged to exercise daily. The pt has been advised to call the office if there are any acute concerns about change in blood pressure readings at home. Order sent to schedule for a sleep study Essential tremor - reiterated today that her tremor is not bad enough for treatment. Pt and her daughter got into a fight today during clinic with her daughter walking out of clinic after Faiza was rude to her daughter when her daughter was trying to talk to me about different things that Faiza had said - with Faiza denying making the statements that were attributed to her by her daughter. I reminded Faiza that her daughter was there to help and was trying to be supportive. After clinic, with Faiza's permission, I discussed her case with Faiza's [facility] She is interested in looking at assisted living facilities for her mom as Faiza's family is for assisted living placement sooner rather than later. 10/12/2015 Appointment: Yarely Vega WPtel: [facility] (15 min) Moderate 10/12/2015 Patient Education: Patient Medication Summary Completed 10/12/2015 Patient Education: Hypertension Completed 10/12/2015 Appointment: Nurse Visit 09/29/2015 Patient Education: Patient Medication Summary Completed 09/29/2015 Appointment: Injection 09/17/2015 Patient Education: Patient Medication Summary Completed 09/17/2015 Visit Plan: Hypertension - well controlled - continue with current medications, continue with no added salt diet. Pt has been encouraged to exercise daily. The pt has been advised to call the office if there are any acute concerns about change in blood pressure readings at home. 4 wheeled walker with a seat RX - for stability - pt has weakness, falling episodes. Diabetes Mellitus - controlled - per recent FSBS reports. I have recommended for the patient to have follow up labs prior to the next office visit. The patient has been instructed to continue with current medications as previously directed, continue with regular FSBS monitoring to assure continued control of diabetes. Pt to call for any acute concerns, complaints, or if the blood glucose readings are starting to become less controlled. Atrial Fibrillation - pt on chronic anticoagulation and is currently rate controlled. The pt is to have labs done as appropriate to monitor medication levels and is to report if they start to feel as if their heart rate is becoming uncontrolled. 09/03/2015 Patient Education: Patient Medication Summary Completed 09/03/2015 Patient Education: Hypertension Completed 09/03/2015 Appointment: Injection 08/17/2015 Patient Education: Patient Medication Summary Completed 08/17/2015 Appointment: Yarely Vega WPtel: [phone] [facility] (15 min) Moderate 08/11/2015 Appointment: Injection 08/06/2015 Patient Education: Patient Medication Summary Completed 08/06/2015 Patient Education: Patient Medication Summary Completed 07/22/2015 Patient Education: Patient Medication Summary Completed 07/08/2015 Appointment: Injection 06/23/2015 Patient Education: Patient Medication Summary Completed 06/23/2015 Appointment: Injection 06/08/2015 Patient Education: Patient Medication Summary Completed 06/08/2015 Appointment: Injection 05/27/2015 Patient Education: Patient Medication Summary Completed 05/27/2015 Visit Plan: Nausea, GI upset - change priolosec to bedtime to see if this will help to decrease the coughing in the morning. the promethazine could be causing the muscle jerking start taking HUMBERTO - they make humberto candies or Humberto snaps or Gingerale. Shoulder pain has improved. Actinic keratosis - cryotherapy of skin lesions x 2 05/19/2015 Appointment: Yarely Vega WPtel: [phone] [facility] (30 min) Complex 05/19/2015 Patient Education: Patient Medication Summary Completed 05/19/2015 Visit Plan: Atrial Fibrillation - pt on chronic anticoagulation and is currently rate controlled. The pt is to have labs done as appropriate to monitor medication levels and is to report if they start to feel as if their heart rate is becoming uncontrolled. Chronic neck pain - check ct scan of neck Chronic Pain Syndrome - pt has chronic pain - has been maintained on current medications, has not sought out other medications, only uses PRN pain medications as directed, and understands the consequences of over- medication. 05/12/2015 Patient Education: Patient Medication Summary Completed 05/12/2015 Patient Education: .Cervicalgia Neck Pain Completed 05/12/2015 Patient Education: Patient Medication Summary Completed 04/30/2015 Appointment: Injection 04/16/2015 Patient Education: Patient Medication Summary Completed 04/16/2015 Patient Education: Patient Medication Summary Completed 04/02/2015 Appointment: Injection 03/18/2015 Patient Education: Patient Medication Summary Completed 03/18/2015 Appointment: Injection 03/03/2015 Patient Education: Patient Medication Summary Completed 03/03/2015 Appointment: Nurse Visit 02/18/2015 Patient Education: Patient Medication Summary Completed 02/18/2015 Appointment: Injection 02/04/2015 Patient Education: Patient Medication Summary Completed 02/04/2015 Patient Education: Patient Medication Summary Completed 01/22/2015 Patient Education: Patient Medication Summary Completed 01/22/2015 Visit Plan: Hypertension - well controlled - continue with current medications, continue with no added salt diet. Pt has been encouraged to exercise daily. The pt has been advised to call the office if there are any acute concerns about change in blood pressure readings at home. Atrial Fibrillation - pt on chronic anticoagulation and is currently rate controlled. The pt is to have labs done as appropriate to monitor medication levels and is to report if they start to feel as if their heart rate is becoming uncontrolled. Insomnia - Pt has been advised to increase the light in the house during the day, and start dimming the lights during the evening hours. Pt has been advised to cut out caffeine after 5pm. Daytime napping worsens night time insomnia. Anxiety - continue with prn alprazolam. 01/13/2015 Appointment: Yarely Vega WPtel: [phone] [facility] (15 min) Moderate 01/13/2015 Patient Education: Patient Medication Summary Completed 01/13/2015 Patient Education: Hypertension Completed 01/13/2015 Visit Plan: b12 injection 01/08/2015 Appointment: Injection 01/08/2015 Patient Education: Patient Medication Summary Completed 01/08/2015 Appointment: Injection 12/25/2014 Patient Education: Patient Medication Summary Completed 12/25/2014 Visit Plan: Hypothyroidism - pt with chronic hypothyroidism , continue with current medication, will monitor pt to signs or symptoms of lack of adequate supplementation. Pt is to continue with current dose of medication unless directed otherwise. Check labs at regular intervals wither q 3 months or q 6 months based on previous levels of control. Diabetes Mellitus - controlled - per recent FSBS reports. I have recommended for the patient to have follow up labs prior to the next office visit. The patient has been instructed to continue with current medications as previously directed, continue with regular FSBS monitoring to assure continued control of diabetes. Pt to call for any acute concerns, complaints, or if the blood glucose readings are starting to become less controlled. Hypertension - uncontrolled - the patient's medications have been modified as documented in the visit note. The patient has been counseled to cut back on salt in diet for a no added salt diet , low fat diet, start an exercise program with low weight bearing exercises and higher aerobic activity for heart health. The patient is to check blood pressure readings as an outpatient and either fax, call, or email the readings to the office next week for practitioner to review. The pt is to call for acute concerns. Atrial Fibrillation - pt on chronic anticoagulation and is currently rate controlled. The pt is to have labs done as appropriate to monitor medication levels and is to report if they start to feel as if their heart rate is becoming uncontrolled. Chronic Depression and anxiety - the pt has symptoms of chronic anxiety and depression that have been fairly well controlled since the last office visit. The pt has expected periods of exacerbation with abatement of the symptoms with change in situational exposure. No change in current medications. 12/16/2014 Appointment: [facility] [phone] [id number] [place] ([place] New Patient 12/16/2014 Patient Education: Patient Medication Summary Completed 12/16/2014 Appointment: Injection 12/10/2014 Patient Education: Patient Medication Summary Completed 12/10/2014 Appointment: Injection 11/26/2014 Patient Education: Patient Medication Summary Completed 11/26/2014 Patient Education: Patient Medication Summary Completed 11/12/2014 Appointment: Nurse Visit 10/28/2014 Patient Education: Patient Medication Summary Completed 10/28/2014 Appointment: Injection 10/14/2014 Referral: Genaro Bravo Referral Appointment Requested Instructions Comment . Hypertension - well controlled - continue with current medications, continue with no added salt diet. Pt has been encouraged to exercise daily. The pt has been advised to call the office if there are any acute concerns about change in blood pressure readings at home. Order sent to schedule for a sleep study Essential tremor - reiterated today that her tremor is not bad enough for treatment. Pt and her daughter got into a fight today during clinic with her daughter walking out of clinic after Faiza was rude to her daughter when her daughter was trying to talk to me about different things that Faiza had said - with Faiza denying making the statements that were attributed to her by her daughter. I reminded Faiza that her daughter was there to help and was trying to be supportive. After clinic, with Faiza's permission, I discussed her case with Faiza's daughter who had left . She is interested in looking at assisted living facilities for her mom as Faiza's family is for assisted living placement sooner rather than later. . b12 injection decrease topamax to one pill nightly . Hypertension - well controlled - continue with current medications, continue with no added salt diet. Pt has been encouraged to exercise daily. The pt has been advised to call the office if there are any acute concerns about change in blood pressure readings at home. 4 wheeled walker with a seat RX - for stability - pt has weakness, falling episodes. Diabetes Mellitus - controlled - per recent FSBS reports. I have recommended for the patient to have follow up labs prior to the next office visit. The patient has been instructed to continue with current medications as previously directed, continue with regular FSBS monitoring to assure continued control of diabetes. Pt to call for any acute concerns, complaints, or if the blood glucose readings are starting to become less controlled. Atrial Fibrillation - pt on chronic anticoagulation and is currently rate controlled. The pt is to have labs done as appropriate to monitor medication levels and is to report if they start to feel as if their heart rate is becoming uncontrolled. . Chest Pain - pt states that she has had chest pain off an on, she states that it goes down her left arm and to her back. She states that she has had some nausea. Will check labs and order EKG - pt is to notify clinic if symptoms return, or with any concerns. . Low back pain- ongoing - will order back brace for support and pain relief - the patient was instructed in appropriate posture, need for weight loss to alleviate abdominal obesity that is worsening the patient's back pain.. The pt is to use prn antiinflammatories to manage acute pain. The patient is to call the office if the pain is worsening or does not improve. . Medicare Exam - today we discussed the patients past history, immunizations, preventative exams/evaluations - colonoscopy, fecal occult blood testing, routine labs for renal function, glucose, cholesterol, osteoporosis evaluations, cardiovascular testing and cancer screenings. We have also discussed mental health and the signs/symptoms of depression. The patient was advised of home safety evaluations and the need to make sure that as the aging process continues, we need to be aware of different ways to make the home a safer place to reside. The patient has also been counseled that exercise is necessary - and of utmost importance as we age to help decrease fall risk and to maintain independece in the home. Today we discussed the need for the patient to create paperwork for Advanced directives as well as for the patient to provide this office with a copy of her DOPA paperwork for health care surrogate. change priolosec to bedtime to see if this will help to decrease the coughing in the morning. the promethazine could be causing the muscle jerking start taking HUMBERTO - they make humberto candies or Humberto snaps or Gingerale. . Nausea, GI upset - change priolosec to bedtime to see if this will help to decrease the coughing in the morning. the promethazine could be causing the muscle jerking start taking HUMBERTO - they make humberto candies or Humberto snaps or Gingerale. Shoulder pain has improved. Actinic keratosis - cryotherapy of skin lesions x 2 . Atrial Fibrillation - pt on chronic anticoagulation and is currently rate controlled. The pt is to have labs done as appropriate to monitor medication levels and is to report if they start to feel as if their heart rate is becoming uncontrolled. Chronic neck pain - check ct scan of neck Chronic Pain Syndrome - pt has chronic pain - has been maintained on current medications, has not sought out other medications, only uses PRN pain medications as directed, and understands the consequences of over-medication. melatonin can take 3mg to 10mg at night to augment sleep. tylenol for pain . Hypertension - well controlled - continue with current medications, continue with no added salt diet. Pt has been encouraged to exercise daily. The pt has been advised to call the office if there are any acute concerns about change in blood pressure readings at home. Atrial Fibrillation - pt on chronic anticoagulation and is currently rate controlled. The pt is to have labs done as appropriate to monitor medication levels and is to report if they start to feel as if their heart rate is becoming uncontrolled. Insomnia - Pt has been advised to increase the light in the house during the day , and start dimming the lights during the evening hours. Pt has been advised to cut out caffeine after 5pm. Daytime napping worsens night time insomnia. Anxiety - continue with prn alprazolam. Schedule thyroid ultrasound Add T3 and digoxin to labs . Hypothyroidism - pt with chronic hypothyroidism, continue with current medication, will monitor pt to signs or symptoms of lack of adequate supplementation. Pt is to continue with current dose of medication unless directed otherwise. Check labs at regular intervals wither q 3 months or q 6 months based on previous levels of control. Diabetes Mellitus - controlled - per recent FSBS reports. I have recommended for the patient to have follow up labs prior to the next office visit. The patient has been instructed to continue with current medications as previously directed, continue with regular FSBS monitoring to assure continued control of diabetes. Pt to call for any acute concerns, complaints, or if the blood glucose readings are starting to become less controlled. Hypertension - uncontrolled - the patient's medications have been modified as documented in the visit note. The patient has been counseled to cut back on salt in diet for a no added salt diet, low fat diet, start an exercise program with low weight bearing exercises and higher aerobic activity for heart health. The patient is to check blood pressure readings as an outpatient and either fax , call, or email the readings to the office next week for practitioner to review. The pt is to call for acute concerns. Atrial Fibrillation - pt on chronic anticoagulation and is currently rate controlled. The pt is to have labs done as appropriate to monitor medication levels and is to report if they start to feel as if their heart rate is becoming uncontrolled. Chronic Depression and anxiety - the pt has symptoms of chronic anxiety and depression that have been fairly well controlled since the last office visit. The pt has expected periods of exacerbation with abatement of the symptoms with change in situational exposure. No change in current medications. Reminder - please take the TOPAMAX daily at bedtime. . Hypertension - well controlled - continue with current medications, continue with no added salt diet. Pt has been encouraged to exercise daily. The pt has been advised to call the office if there are any acute concerns about change in blood pressure readings at home. Hypothyroidism - pt with chronic hypothyroidism, continue with current medication, will monitor pt to signs or symptoms of lack of adequate supplementation. Pt is to continue with current dose of medication unless directed otherwise. Check labs at regular intervals wither q 3 months or q 6 months based on previous levels of control. headaches - take topamax at bedtime . Medicare Exam - today we discussed the patients past history, immunizations, preventative exams/evaluations - colonoscopy, fecal occult blood testing, routine labs for renal function, glucose, cholesterol, osteoporosis evaluations, cardiovascular testing and cancer screenings. We have also discussed mental health and the signs/symptoms of depression. The patient was advised of home safety evaluations and the need to make sure that as the aging process continues, we need to be aware of different ways to make the home a safer place to reside. The patient has also been counseled that exercise is necessary - and of utmost importance as we age to help decrease fall risk and to maintain independece in the home. Today we discussed the need for the patient to create paperwork for Advanced directives as well as for the patient to provide this office with a copy of her DOPA paperwork for health care surrogate. increase norvasc from 5mg daily to 10mg daily - take two of the 5mg norvasc until gone, then fill the new rx. . Hypertension - uncontrolled - the patient's medications have been modified as documented in the visit note. The patient has been counseled to cut back on salt in diet for a no added salt diet, low fat diet, start an exercise program with low weight bearing exercises and higher aerobic activity for heart health. The patient is to check blood pressure readings as an outpatient and either fax , call, or email the readings to the office next week for practitioner to review. The pt is to call for acute concerns. talk to Heart doctor about possible amiodarone causing the fatigue, muscle weakness, dizziness. . Diabetes Mellitus - controlled - per recent FSBS reports. I have recommended for the patient to have follow up labs prior to the next office visit. The patient has been instructed to continue with current medications as previously directed, continue with regular FSBS monitoring to assure continued control of diabetes. Pt to call for any acute concerns, complaints, or if the blood glucose readings are starting to become less controlled. Hypothyroidism - pt with chronic hypothyroidism, continue with current medication, will monitor pt to signs or symptoms of lack of adequate supplementation. Pt is to continue with current dose of medication unless directed otherwise. Check labs at regular intervals wither q 3 months or q 6 months based on previous levels of control. Costochondritis - recommended aspercreme to chest wall. Fatigue - pt to discuss with Business Technology Professor about the possibility of amiodarone causing her fatigue/malaise. . Hypertension - well controlled - continue with current medications, continue with no added salt diet. Pt has been encouraged to exercise daily. The pt has been advised to call the office if there are any acute concerns about change in blood pressure readings at home. Hypothyroidism - pt with chronic hypothyroidism, continue with current medication, will monitor pt to signs or symptoms of lack of adequate supplementation. Pt is to continue with current dose of medication unless directed otherwise. Check labs at regular intervals wither q 3 months or q 6 months based on previous levels of control. 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 I suspect that she has the nocturnal hypoxemia due to her chronic atrial fibrillation and history of coronary artery disease with chronic systolic heart failure. Power Pudding: equal parts of prune juice, bran flakes, apple sauce - mix together, and take 1-2 tablespoons up to three times daily. The mixture will stay good in the fridge for 10 days. . Hypothyroidism - pt with chronic hypothyroidism, continue with current medication, will monitor pt to signs or symptoms of lack of adequate supplementation. Pt is to continue with current dose of medication unless directed otherwise. Check labs at regular intervals wither q 3 months or q 6 months based on previous levels of control. Constipation - uncontrolled - I have discussed with the patient the need for adequate fiber and water intake to facilitate soft, easily passed stools. The pt noted understanding of our conversation. I have given the patient a recipe for "power pudding" - equal parts, bran flakes, prune juice, and apple sauce. The pt is to call if symptoms not improved on this regimen. Skin tear - nakita razo coban, pt to change every 2 days and call if not resolving. Yeast infection of gluteus - rx for nystatin powder. Cough improving - continue with current treatment plan and mucinex womens probiotic - take one pill daily. Hypertension - well controlled - continue with current medications, continue with no added salt diet. Pt has been encouraged to exercise daily. The pt has been advised to call the office if there are any acute concerns about change in blood pressure readings at home. Hypothyroidism - pt with chronic hypothyroidism, continue with current medication, will monitor pt to signs or symptoms of lack of adequate supplementation. Pt is to continue with current dose of medication unless directed otherwise. Check labs at regular intervals wither q 3 months or q 6 months based on previous levels of control. Abdominal pain - continue with carafate loratadine - generic for CLARITIN - take 10mg daily. you may take a 1/2 benadryl at bedtime if needed for the itching. AVENO - body wash - make sure it is the body wash for skin calming. . Hypertension - uncontrolled - the patient's medications have been modified as documented in the visit note. The patient has been counseled to cut back on salt in diet for a no added salt diet, low fat diet, start an exercise program with low weight bearing exercises and higher aerobic activity for heart health. The patient is to check blood pressure readings as an outpatient and either fax , call, or email the readings to the office next week for practitioner to review. The pt is to call for acute concerns. Diabetes Mellitus - controlled - per recent FSBS reports. I have recommended for the patient to have follow up labs prior to the next office visit. The patient has been instructed to continue with current medications as previously directed, continue with regular FSBS monitoring to assure continued control of diabetes. Pt to call for any acute concerns, complaints, or if the blood glucose readings are starting to become less controlled. Seasonal allergies - loratadine - generic for CLARITIN - take 10mg daily. you may take a 1/2 benadryl at bedtime if needed for the itching. AVENO - body wash - make sure it is the body wash for skin calming. Headache - topamax - increase dose to twice daily. loratadine - generic for CLARITIN - take 10mg daily. you may take a 1/2 benadryl at bedtime if needed for the itching. AVENO - body wash - make sure it is the body wash for skin calming. . Hypertension - uncontrolled - the patient's medications have been modified as documented in the visit note. The patient has been counseled to cut back on salt in diet for a no added salt diet, low fat diet, start an exercise program with low weight bearing exercises and higher aerobic activity for heart health. The patient is to check blood pressure readings as an outpatient and either fax , call, or email the readings to the office next week for practitioner to review. The pt is to call for acute concerns. Diabetes Mellitus - controlled - per recent FSBS reports. I have recommended for the patient to have follow up labs prior to the next office visit. The patient has been instructed to continue with current medications as previously directed, continue with regular FSBS monitoring to assure continued control of diabetes. Pt to call for any acute concerns, complaints, or if the blood glucose readings are starting to become less controlled. Seasonal allergies - loratadine - generic for CLARITIN - take 10mg daily. you may take a 1/2 benadryl at bedtime if needed for the itching. AVENO - body wash - make sure it is the body wash for skin calming. Headache - topamax - increase dose to twice daily. . Hypertension - well controlled - continue with current medications, continue with no added salt diet. Pt has been encouraged to exercise daily. The pt has been advised to call the office if there are any acute concerns about change in blood pressure readings at home. Hypothyroidism - pt with chronic hypothyroidism, continue with current medication, will monitor pt to signs or symptoms of lack of adequate supplementation. Pt is to continue with current dose of medication unless directed otherwise. Check labs at regular intervals wither q 3 months or q 6 months based on previous levels of control. 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 liquid or dissolving B12 - 2000 units daily . Hypertension - well controlled - continue with current medications, continue with no added salt diet. Pt has been encouraged to exercise daily. The pt has been advised to call the office if there are any acute concerns about change in blood pressure readings at home. Atrial Fibrillation - pt on chronic anticoagulation and is currently rate controlled. The pt is to have labs done as appropriate to monitor medication levels and is to report if they start to feel as if their heart rate is becoming uncontrolled. Hypothyroidism - pt with chronic hypothyroidism, continue with current medication, will monitor pt to signs or symptoms of lack of adequate supplementation. Pt is to continue with current dose of medication unless directed otherwise. Check labs at regular intervals wither q 3 months or q 6 months based on previous levels of control. . URI - Pt advised to increase fluids, vitamin C. Discussed natural and expected course of this diagnosis and need to alert me if symptoms do not follow expected course, or if any worse. RX sent to patient's pharmacy. Allergies - chronic - recommended pt to use allergy medication as prescribed. Pt has been counseled as to the appropriate use of the medication. Pt to call if allergy symptoms are not controlled with the medication. If using nasal spray, instructions as follows: Nasal spray- use twice daily, one spray per nostril twice daily, after 30 minutes, rinse out nose with saline spray.. Use opposite hand per nostril to spray in the nasal steroid allergy spray.
--- OUTSIDE RECORDS SUMMARY | 2017-09-17 09:29 | XMS REPORT | CCD ---
Author Author [facility] Organization [facility] Address [address] [place] [address] Phone Care Team Providers Care Utility Repairer Name Role Phone PP Unavailable CCM Unavailable Summary Purpose Interface Exchange Insurance Providers Payer name Policy type / Coverage type Covered green party ID Effective Begin Date Effective End Date WPS Medicare Part B Medicare Part B [id number] Unknown Unknown Principal Life Insurance Medicare Part B [id number] Unknown Unknown Family history Brother Diagnosis Age At Onset Heart Attack Unknown Mother Diagnosis Age At Onset Hypertension Unknown kidney disease Unknown Stroke Unknown Father Diagnosis Age At Onset Arthritis Unknown Social History Social History Element Codes Description Effective Dates Employment Unknown Retired worked at [employer] 2016 Marital status Unknown Single 12/16/[address]: 1348978 Former smoker 12/16/[address]: 686887768 Never drinks alcohol 12/16/2014 Allergies, Adverse Reactions, [...] Instructions nystatin 100,000 unit/gram topical powder RxNorm: 947190 1 Gram(s) TOP QID 07/14/2017 07/23/2017 Active levothyroxine 125 mcg tablet RxNorm: 196602 Tablet(s) 1 Tablet(s) PO daily 07/10/2017 01/05/2018 Active nystatin 100,000 unit/gram topical powder RxNorm: 168496 1 Gram(s) TOP QID 07/06/2017 07/13/2017 Inactive cyanocobalamin (vit B-12) 1,000 mcg/mL injection solution RxNorm: 653583 Milliliter(s) Inj 07/06/2017 07/06/2017 Inactive Kenalog 40 mg/mL suspension for injection RxNorm: 9187631 1 Milliliter(s) Inj 06/20/2017 06/20/2017 Inactive cyanocobalamin (vit B-12) 1,000 mcg/mL injection solution RxNorm: 327909 Milliliter(s) Inj 06/20/2017 06/20/2017 Inactive Mobic 15 mg tablet RxNorm: 289539 1 Tablet(s) PO daily 201606/08/2018 Active Keflex 500 mg capsule RxNorm: 541395 1 Capsule(s) PO TID 201606/23/2017 Inactive Please deliver to patient cyanocobalamin (vit B-12) 1,000 mcg/mL injection solution RxNorm: 243711 Milliliter(s) Inj 06/05/2017 06/05/2017 Inactive buspirone 15 mg tablet RxNorm: 027220 TAKE 1 TABLET BY MOUTH TWICE DAILY 05/31/2017 05/25/2018 Active Generic For:BUSPAR 15MG 05/31/2017 9:19:20 AM hydrocodone 5 mg-acetaminophen 325 mg tablet RxNorm: 161791 1-2 Tablet(s) PO Q6 as needed for pain 05/25/2017 06/23/2017 Inactive cyanocobalamin (vit B-12) 1,000 mcg/mL injection solution RxNorm: 825248 Milliliter(s) Inj 05/25/2017 05/25/2017 Inactive amiodarone 200 mg tablet RxNorm: 488875 1/2 Tablet(s) PO daily 05/22/2017 No Stop Date Active cardiology decreased to 100mg daily cyanocobalamin (vit B-12) 1,000 mcg/mL injection solution RxNorm: 253070 Milliliter(s) Inj 05/16/2017 05/16/2017 Inactive Zofran ODT 4 mg disintegrating tablet RxNorm: 527063 1 Tablet(s) PO TID as needed 05/03/2017 05/04/2017 Inactive hydrocodone 5 mg-acetaminophen 325 mg tablet RxNorm: 134958 1-2 Tablet(s) PO Q6 as needed for pain 05/01/2017 05/05/2017 Inactive cyanocobalamin (vit B-12) 1,000 mcg/mL injection solution RxNorm: 782543 1 Milliliter(s) Inj 05/01/2017 05/01/2017 Inactive cyanocobalamin (vit B-12) 1,000 mcg/mL injection solution RxNorm: 431411 INJECT ONE 1 ML EVERY TWO WEEKS 04/26/20172018 Active 04/26/2017 9:08:52 AM Zoloft 50 mg tablet RxNorm: 478425 Tablet(s) TAKE 1 TABLET BY MOUTH DAILY 04/25/2017 10/21/2017 Active Generic For:ZOLOFT 50MG cyanocobalamin (vit B-12) 1,000 mcg/mL injection solution RxNorm: 327428 Milliliter(s) Inj 04/18/2017 04/18/2017 Inactive liothyronine 5 mcg tablet RxNorm: 662269 1 Tablet(s) PO BID 10/09/2017 Active cyanocobalamin (vit B-12) 1,000 mcg/mL injection solution RxNorm: 883995 Milliliter(s) Inj 04/06/2017 04/06/2017 Inactive hydrocodone 5 mg-acetaminophen 325 mg tablet RxNorm: 413917 1-2 Tablet(s) PO Q6 as needed for pain 04/06/2017 04/10/2017 Inactive cyanocobalamin (vit B-12) 1,000 mcg/mL injection solution RxNorm: 384488 Milliliter(s) Inj 03/22/2017 03/22/2017 Inactive alprazolam 0.25 mg tablet RxNorm: 217856 1 Tablet(s) PO BID 09/12/2017 Active alprazolam 0.25 mg tablet RxNorm: 238313 1 Tablet(s) PO BID 09/10/2017 Active hydrocodone 5 mg-acetaminophen 325 mg tablet RxNorm: 267963 1-2 Tablet(s) PO Q6 as needed for pain 03/09/2017 03/13/2017 Inactive cyanocobalamin (vit B-12) 1,000 mcg/mL injection solution RxNorm: 604428 Milliliter(s) Inj 03/09/2017 03/09/2017 Inactive cyanocobalamin (vit B-12) 1,000 mcg/mL injection solution RxNorm: 850438 Milliliter(s) Inj 02/23/2017 02/23/2017 Inactive cyanocobalamin (vit B-12) 1,000 mcg/mL injection solution RxNorm: 658720 Milliliter(s) Inj 02/09/2017 02/09/2017 Inactive hydrocodone 5 mg-acetaminophen 325 mg tablet RxNorm: 887938 1-2 Tablet(s) PO Q6 as needed for pain 02/08/2017 02/12/2017 Inactive Topamax 25 mg tablet RxNorm: 366703 1 Tablet(s) PO BID 201605/22/2017 Inactive Generic For:TOPAMAX 25MG 12/06/2016 9:15:13 AM cyanocobalamin (vit B-12) 1,000 mcg/mL injection solution RxNorm: 236248 Milliliter(s) Inj 01/23/2017 01/23/2017 Inactive cyanocobalamin (vit B-12) 1,000 mcg/mL injection solution RxNorm: 596297 Milliliter(s) Inj 01/10/2017 01/10/2017 Inactive hydrocodone 5 mg-acetaminophen 325 mg tablet RxNorm: 918664 1-2 Tablet(s) PO Q6 as needed for pain 01/09/2017 01/13/2017 Inactive cyanocobalamin (vit B-12) 1,000 mcg/mL injection solution RxNorm: 252459 1 Milliliter(s) Inj 12/28/2016 12/28/2016 Inactive cyanocobalamin (vit B-12) 1,000 mcg/mL injection solution RxNorm: 593719 Milliliter(s) Inj 12/14/2016 12/14/2016 Inactive buspirone 15 mg tablet RxNorm: 818454 1 Tablet(s) PO BID 201605/30/2017 Inactive hydrocodone 5 mg-acetaminophen 325 mg tablet RxNorm: 415879 1-2 Tablet(s) PO Q6 as needed for pain 12/08/2016 12/12/2016 Inactive Topamax 25 mg tablet RxNorm: 830943 TAKE 1 TABLET BY MOUTH EVERY DAY AT BEDTIME 12/06/2016 01/22/2017 Inactive Generic For:TOPAMAX 25MG 12/06/2016 9:15:13 AM Lac-Hydrin Five 5 % lotion RxNorm: 198596 1 Gram(s) TOP daily 12/02/2016 01/30/2017 Inactive cyanocobalamin (vit B-12) 1,000 mcg/mL injection solution RxNorm: 899052 Milliliter(s) Inj 11/24/2016 11/24/2016 Inactive Ceftin 500 mg tablet RxNorm: 937543 1 Tablet(s) PO BID 201606/13/2017 Inactive Cipro 500 mg tablet RxNorm: 311385 1 Tablet(s) PO BID 201611/10/2016 Inactive Cipro 500 mg tablet RxNorm: 849465 1 Tablet(s) PO BID 201611/11/2016 Inactive cyanocobalamin (vit B-12) 1,000 mcg/mL injection solution RxNorm: 685791 1 Milliliter(s) Inj 11/07/2016 11/07/2016 Inactive hydrocodone 5 mg-acetaminophen 325 mg tablet RxNorm: 481674 1-2 Tablet(s) PO Q6 as needed for pain 11/02/2016 11/06/2016 Inactive cyanocobalamin (vit B-12) 1,000 mcg/mL injection solution RxNorm: 570400 Milliliter(s) Inj 10/24/2016 10/24/2016 Inactive levothyroxine 125 mcg tablet RxNorm: 461312 Tablet(s) 1 Tablet(s) PO daily 10/24/2016 04/21/2017 Inactive liothyronine 5 mcg tablet RxNorm: 822122 1 Tablet(s) PO BID 01/201704/12/2017 Inactive hydrocodone 5 mg-acetaminophen 325 mg tablet RxNorm: 084081 1-2 Tablet(s) PO Q6 as needed for pain 10/17/2016 10/21/2016 Inactive Keflex 500 mg capsule RxNorm: 472010 1 Capsule(s) PO TID 201610/06/2016 Inactive Keflex 500 mg capsule RxNorm: 960369 1 Capsule(s) PO TID 201610/16/2016 Inactive Please deliver to patient cyanocobalamin (vit B-12) 1,000 mcg/mL injection solution RxNorm: 913915 1 Milliliter(s) Inj 09/29/2016 09/29/2016 Inactive alprazolam 0.25 mg tablet RxNorm: 261619 1 Tablet(s) PO BID 09/201603/16/2017 Inactive Cozaar 100 mg tablet RxNorm: 827414 1 Tablet(s) PO daily 2016 No Stop Date Active metoprolol tartrate 50 mg tablet RxNorm: 464709 1/2 Tablet(s) PO BID 09/14/2016 12/12/2016 Inactive Zoloft 50 mg tablet RxNorm: 177649 Tablet(s) TAKE 1 TABLET BY MOUTH DAILY 09/14/2016 03/12/2017 Inactive Generic For:ZOLOFT 50MG liothyronine 5 mcg tablet RxNorm: 218504 1 Tablet(s) PO BID 10/23/2016 Inactive Calmoseptine 0.44 %-20.6 % topical ointment RxNorm: 095890 1 Application TOP BID and as needed to sore on buttocks 09/07/2016 No Stop Date Active cyanocobalamin (vit B-12) 1,000 mcg/mL injection solution RxNorm: 504330 Milliliter(s) Inj 08/29/2016 08/29/2016 Inactive hydrocodone 5 mg-acetaminophen 325 mg tablet RxNorm: 963855 1-2 Tablet(s) PO Q6 as needed for pain 08/29/2016 10/16/2016 Inactive levothyroxine 125 mcg tablet RxNorm: 578818 1 Tablet(s) PO daily 08/25/2016 10/23/2016 Inactive Topamax 25 mg tablet RxNorm: 025549 TAKE 1 TABLET BY MOUTH EVERY DAY AT BEDTIME 08/17/2016 12/05/2016 Inactive Generic For:TOPAMAX 25MG 08/17/2016 2:14:37 PM hydrocodone 5 mg-acetaminophen 325 mg tablet RxNorm: 260663 1-2 Tablet(s) PO Q6 as needed for pain 08/11/2016 08/28/2016 Inactive hydrocodone 5 mg-acetaminophen 325 mg tablet RxNorm: 899093 1 -2 Tablet(s) PO Q6 as needed for pain 08/11/2016 08/18/2016 Inactive hydrocodone 5 mg-acetaminophen 325 mg tablet RxNorm: 154548 1 Tablet(s) PO Q6 as needed for pain 08/05/2016 08/10/2016 Inactive cyanocobalamin (vit B-12) 1,000 mcg/mL injection solution RxNorm: 167313 Milliliter(s) Inj 08/04/2016 08/04/2016 Inactive Norvasc 10 mg tablet RxNorm: 668382 1 Tablet(s) PO daily 201607/20/2017 Active levothyroxine 125 mcg tablet RxNorm: 323954 1 Tablet(s) PO daily 07/21/2016 10/18/2016 Inactive alprazolam 0.25 mg tablet RxNorm: 664867 1 Tablet(s) PO QHS 07/201609/19/2016 Inactive Norvasc 5 mg tablet RxNorm: 488063 1 Tablet(s) PO daily 201607/25/2016 Inactive cyanocobalamin (vit B-12) 1,000 mcg/mL injection solution RxNorm: 553129 Milliliter(s) Inj 07/21/2016 07/21/2016 Inactive Zoloft 50 mg tablet RxNorm: 640513 Tablet(s) TAKE 1 TABLET BY MOUTH DAILY 07/21/2016 09/13/2016 Inactive Generic For:ZOLOFT 50MG cyanocobalamin (vit B-12) 1,000 mcg/mL injection solution RxNorm: 277777 1 Milliliter(s) Inj 07/05/2016 07/05/2016 Inactive cyanocobalamin (vit B-12) 1,000 mcg/mL injection solution RxNorm: 419538 1 Milliliter(s) Inj 06/22/2016 06/22/2016 Inactive cyanocobalamin (vit B-12) 1,000 mcg/mL injection solution RxNorm: 703812 Milliliter(s) Inj 06/09/2016 06/09/2016 Inactive Aricept 10 mg tablet RxNorm: 709305 1 Tablet(s) PO daily 201505/21/2017 Inactive Mobic 15 mg tablet RxNorm: 666497 1 Tablet(s) PO daily 201505/21/2017 Inactive levothyroxine 125 mcg tablet RxNorm: 390843 1 Tablet(s) PO daily 05/25/2016 07/20/2016 Inactive cyanocobalamin (vit B-12) 1,000 mcg/mL injection solution RxNorm: 014507 1 Milliliter(s) Inj 05/25/2016 05/25/2016 Inactive doxycycline hyclate 100 mg capsule RxNorm: 8420263 1 Capsule(s) PO BID 05/16/2016 05/15/2016 Inactive doxycycline hyclate 100 mg capsule RxNorm: 7488310 1 Capsule(s) PO BID 05/16/2016 05/22/2016 Inactive cyanocobalamin (vit B-12) 1,000 mcg/mL injection solution RxNorm: 576305 Milliliter(s) Inj 05/10/2016 05/10/2016 Inactive cyanocobalamin (vit B-12) 1,000 mcg/mL injection solution RxNorm: 601707 Milliliter(s) Inj 04/26/2016 04/26/2016 Inactive Topamax 25 mg tablet RxNorm: 179453 1 Tablet(s) PO QPM 201508/16/2016 Inactive cyanocobalamin (vit B-12) 1,000 mcg/mL injection solution RxNorm: 715892 Milliliter(s) 1 Milliliter(s) Inj [id number] 04/11/2016 12/31/2017 Active liothyronine 5 mcg tablet RxNorm: 595450 1 Tablet(s) PO BID 09/13/2016 Inactive cyanocobalamin (vit B-12) 1,000 mcg/mL injection solution RxNorm: 648502 Milliliter(s) Inj 04/11/2016 04/11/2016 Inactive cyanocobalamin (vit B-12) 1,000 mcg/mL injection solution RxNorm: 790553 Milliliter(s) Inj 03/31/2016 03/31/2016 Inactive cyanocobalamin (vit B-12) 1,000 mcg/mL injection solution RxNorm: 254146 1 Milliliter(s) Inj 03/15/2016 03/15/2016 Inactive levothyroxine 125 mcg tablet RxNorm: 997443 1 Tablet(s) PO daily 2016 03/03/2016 Inactive levothyroxine 125 mcg tablet RxNorm: 372902 1 Tablet(s) PO daily 2016 05/24/2016 Inactive cyanocobalamin (vit B-12) 1,000 mcg/mL injection solution RxNorm: 693118 Milliliter(s) Inj 02/25/2016 02/25/2016 Inactive cyanocobalamin (vit B-12) 1,000 mcg/mL injection solution RxNorm: 656789 1 Milliliter(s) Inj 02/02/2016 02/02/2016 Inactive sucralfate 1 gram tablet RxNorm: 817423 1 Tablet(s) PO QHS 01/2016 No Stop Date Active amiodarone 200 mg tablet RxNorm: 859668 1/2 Tablet(s) PO BID 05/21/2017 Inactive cyanocobalamin (vit B-12) 1,000 mcg/mL injection solution RxNorm: 932289 Milliliter(s) Inj 01/18/2016 01/18/2016 Inactive cyanocobalamin (vit B-12) 1,000 mcg/mL injection solution RxNorm: 443575 Milliliter(s) Inj 12/29/2015 12/29/2015 Inactive Topamax 25 mg tablet RxNorm: 473337 1 Tablet(s) PO QPM 201504/05/2016 Inactive cyanocobalamin (vit B-12) 1,000 mcg/mL injection solution RxNorm: 637250 Milliliter(s) Inj 12/08/2015 12/08/2015 Inactive Bactrim DS 800 mg-160 mg tablet RxNorm: 605212 1 Tablet(s) PO BID 11/23/2015 11/22/2015 Inactive cyanocobalamin (vit B-12) 1,000 mcg/mL injection solution RxNorm: 576418 Milliliter(s) Inj 11/23/2015 11/23/2015 Inactive Bactrim DS 800 mg-160 mg tablet RxNorm: 217141 1 Tablet(s) PO BID 11/23/2015 11/29/2015 Inactive cyanocobalamin (vit B-12) 1,000 mcg/mL injection solution RxNorm: 414390 Milliliter(s) Inj 11/11/2015 11/11/2015 Inactive amoxicillin 500 mg capsule RxNorm: 192651 1 Capsule(s) PO TID 11/10/2015 11/19/2015 Inactive Zithromax Z-Henrique 250 mg tablet RxNorm: 707889 1 Tablet(s) PO UD 11/10/2015 01/24/2016 Inactive zpack x 1 amoxicillin 500 mg capsule RxNorm: 739887 1 Capsule(s) PO TID 11/10/2015 11/09/2015 Inactive cyanocobalamin (vit B-12) 1,000 mcg/mL injection solution RxNorm: 585994 1 Milliliter(s) Inj 10/29/2015 10/29/2015 Inactive [place] 3 capsule RxNorm : 1 Capsule(s) PO QAM , 2 Capsules at noon, 1 Capsule QHS 10/13/2015 No Stop Date Active potassium chloride ER 20 mEq tablet,extended release RxNorm: 585436 2 Tablet(s) PO daily at noon 10/13/2015 No Stop Date Active alprazolam 0.25 mg tablet RxNorm: 605141 1 Tablet(s) PO QHS 07/20/2016 Inactive amiodarone 200 mg tablet RxNorm: 041983 1 Tablet(s) PO BID 01/24/2016 Inactive cyanocobalamin (vit B-12) 1,000 mcg/mL injection solution RxNorm: 886764 1 Milliliter(s) Inj 10/12/2015 10/12/2015 Inactive Zofran 4 mg tablet RxNorm: 389490 1 Tablet(s) PO daily as needed 10/07/2015 05/24/2016 Inactive Zoloft 50 mg tablet RxNorm: 071113 TAKE 1 TABLET BY MOUTH DAILY 10/05/2015 05/01/2016 Inactive Generic For:ZOLOFT 50MG cyanocobalamin (vit B-12) 1,000 mcg/mL injection solution RxNorm: 352751 1 Milliliter(s) Inj 09/29/2015 09/29/2015 Inactive cyanocobalamin (vit B-12) 1,000 mcg/mL injection solution RxNorm: 957154 1 Milliliter(s) Inj 09/17/2015 09/17/2015 Inactive Norvasc 5 mg tablet RxNorm: 093088 1 Tablet(s) PO daily 201507/20/2016 Inactive liothyronine 5 mcg tablet RxNorm: 321655 1 Tablet(s) PO BID 03/14/2016 Inactive Zoloft 50 mg tablet RxNorm: 071618 1 Tablet(s) PO daily 201510/04/2015 Inactive buspirone 15 mg tablet RxNorm: 780874 1 Tablet(s) PO BID 201509/10/2016 Inactive buspirone 15 mg tablet RxNorm: 678418 1 Tablet(s) PO BID 201509/16/2015 Inactive Topamax 25 mg tablet RxNorm: 384959 1 Tablet(s) PO QPM 201512/07/2015 Inactive cyanocobalamin (vit B-12) 1,000 mcg/mL injection solution RxNorm: 562366 1 Milliliter(s) Inj 09/03/2015 09/03/2015 Inactive cyanocobalamin (vit B-12) 1,000 mcg/mL injection solution RxNorm: 678387 Milliliter(s) Inj 08/17/2015 08/17/2015 Inactive cyanocobalamin (vit B-12) 1,000 mcg/mL injection solution RxNorm: 198147 Milliliter(s) Inj 08/06/2015 08/06/2015 Inactive levothyroxine 150 mcg tablet RxNorm: 389109 1 Tablet(s) PO daily 07/22/2015 03/03/2016 Inactive Aricept 10 mg tablet RxNorm: 367923 1 Tablet(s) PO daily 201505/26/2016 Inactive Mobic 15 mg tablet RxNorm: 093436 1 Tablet(s) PO daily 201505/26/2016 Inactive cyanocobalamin (vit B-12) 1,000 mcg/mL injection solution RxNorm: 197017 Milliliter(s) Inj 07/22/2015 07/22/2015 Inactive liothyronine 5 mcg tablet RxNorm: 541134 1 Tablet(s) PO BID 08/201509/16/2015 Inactive cyanocobalamin (vit B-12) 1,000 mcg/mL injection solution RxNorm: 479418 Milliliter(s) Inj 07/08/2015 07/08/2015 Inactive cyanocobalamin (vit B-12) 1,000 mcg/mL injection solution RxNorm: 150479 Milliliter(s) Inj 06/23/2015 06/23/2015 Inactive cyanocobalamin (vit B-12) 1,000 mcg/mL injection solution RxNorm: 775846 1 Milliliter(s) Inj 06/08/2015 06/08/2015 Inactive cyanocobalamin (vit B-12) 1,000 mcg/mL injection solution RxNorm: 686748 Milliliter(s) Inj 05/27/2015 05/27/2015 Inactive Aricept 10 mg tablet RxNorm: 997580 1 Tablet(s) PO daily 201407/21/2015 Inactive Zofran 4 mg tablet RxNorm: 241239 1 Tablet(s) PO daily as needed 05/20/2015 06/18/2015 Inactive alprazolam 0.25 mg tablet RxNorm: 701729 1 Tablet(s) PO BID 07/201410/12/2015 Inactive Mobic 15 mg tablet RxNorm: 677955 1 Tablet(s) PO daily 201407/21/2015 Inactive tramadol ER 100 mg tablet,extended release 24 hr RxNorm: 537135 1 Tablet(s) PO Q6 as needed 05/13/2015 No Stop Date Active cyanocobalamin (vit B-12) 1,000 mcg/mL injection solution RxNorm: 155655 1 Milliliter(s) Inj 05/12/2015 05/12/2015 Inactive Topamax 25 mg tablet RxNorm: 487004 1 Tablet(s) PO BID (start at one pill at bedtime x 1week then twice daily thereafter) 05/12/2015 09/02/2015 Inactive cyanocobalamin (vit B-12) 1,000 mcg/mL injection kit RxNorm: 284049 kit Inj 04/30/2015 04/30/2015 Inactive cyanocobalamin (vit B-12) 1,000 mcg/mL injection solution RxNorm: 679300 Milliliter(s) Inj 04/16/2015 04/16/2015 Inactive levothyroxine 150 mcg tablet RxNorm: 535428 1 Tablet(s) PO daily 04/08/2015 07/21/2015 Inactive cyanocobalamin (vit B-12) 1,000 mcg/mL injection solution RxNorm: 781284 Milliliter(s) 1 Milliliter(s) Inj W2wjhth 04/08/2015 04/10/2016 Inactive Cytomel 5 mcg tablet RxNorm: 793001 1 Tablet(s) PO BID 201410/12/2015 Inactive Cytomel 5 mcg tablet RxNorm: 108250 1 Tablet(s) PO BID 201404/07/2015 Inactive Cytomel 5 mcg tablet RxNorm: 926463 1 Tablet(s) PO BID 201404/06/2015 Inactive cyanocobalamin (vit B-12) 1,000 mcg/mL injection solution RxNorm: 886504 Milliliter(s) Inj 04/02/2015 04/02/2015 Inactive cyanocobalamin (vit B-12) 1,000 mcg/mL injection solution RxNorm: 665568 Milliliter(s) Inj 03/18/2015 03/18/2015 Inactive cyanocobalamin (vit B-12) 1,000 mcg/mL injection solution RxNorm: 081078 Milliliter(s) 1 Milliliter(s) Inj [id number] 03/18/2015 04/07/2015 Inactive cyanocobalamin (vit B-12) 1,000 mcg/mL injection solution RxNorm: 661148 1 Milliliter(s) Inj [id number] 03/16/201503/17 Inactive cyanocobalamin (vit B-12) 1,000 mcg/mL injection solution RxNorm: 241519 Milliliter(s) Inj 03/03/2015 03/03/2015 Inactive cyanocobalamin (vit B-12) 1,000 mcg/mL injection solution RxNorm: 832087 Milliliter(s) Inj 02/18/2015 02/18/2015 Inactive cyanocobalamin (vit B-12) 1,000 mcg/mL injection solution RxNorm: 727361 Milliliter(s) Inj 02/04/2015 02/04/2015 Inactive cyanocobalamin (vit B-12) 1,000 mcg/mL injection solution RxNorm: 984654 Milliliter(s) Inj 01/22/2015 01/22/2015 Inactive Lac-Hydrin Five 5 % lotion RxNorm: 346410 1 TOP daily 201403/13/2015 Inactive Lac-Hydrin Five 5 % lotion RxNorm: 443715 1 TOP daily 201401/12/2015 Inactive cyanocobalamin (vit B-12) 1,000 mcg/mL injection solution RxNorm: 524847 Milliliter(s) Inj 01/08/2015 01/08/2015 Inactive cyanocobalamin (vit B-12) 1,000 mcg/mL injection solution RxNorm: 444872 Milliliter(s) Inj 12/25/2014 12/25/2014 Inactive levothyroxine 150 mcg tablet RxNorm: 306488 1 Tablet(s) PO daily 12/24/2014 04/07/2015 Inactive tramadol 50 mg tablet RxNorm: 038649 1-2 Tablet(s) PO Q6 as needed 12/17/2014 05/12/2015 Inactive alprazolam 0.25 mg tablet RxNorm: 044935 1 Tablet(s) PO BID 06/201404/15/2015 Inactive Pradaxa 150 mg capsule RxNorm: 2056025 1 Capsule(s) PO BID No Stop Date Active metoprolol tartrate 50 mg tablet RxNorm: 731358 1/2 Tablet(s) PO BID 12/16/2014 09/13/2016 Inactive buspirone 15 mg tablet RxNorm: 108125 1 Tablet(s) PO BID 201409/13/2015 Inactive cyanocobalamin (vit B-12) 1,000 mcg/mL injection solution RxNorm: 846168 1 Milliliter(s) Inj [id number] 12/16/201403/15 Inactive cyanocobalamin (vit B-12) 1,000 mcg/mL injection solution RxNorm: 103062 1 Milliliter(s) Inj [id number] 12/16/201412/15 Inactive sucralfate 1 gram tablet RxNorm: 476755 Tablet(s) PO QID 201412/10/2015 Inactive cyanocobalamin (vit B-12) 1,000 mcg/mL injection solution RxNorm: 310671 Milliliter(s) Inj 12/10/2014 12/10/2014 Inactive cyanocobalamin (vit B-12) 1,000 mcg/mL injection solution RxNorm: 657329 Milliliter(s) Inj 11/26/2014 11/26/2014 Inactive Zoloft 50 mg tablet RxNorm: 527003 1 Tablet(s) PO daily 201406/21/2015 Inactive Zoloft 50 mg tablet RxNorm: 653137 1 Tablet(s) PO daily 201411/23/2014 Inactive cyanocobalamin (vit B-12) 1,000 mcg/mL injection kit RxNorm: 317635 Milliliter(s) Inj 11/12/2014 11/12/2014 Inactive cyanocobalamin (vit B-12) 1,000 mcg/mL injection solution RxNorm: 016543 Milliliter(s) Inj 10/28/2014 10/28/2014 Inactive [SAVINGS FOR NON-COVERED DRUGS -- [id number], PCN: [id number], Group: [id number], ID# [id number], Questions: [phone]. THIS IS NOT INSURANCE.] promethazine oral RxNorm: 8745 oral No Start Date Active digoxin 125 mcg tablet RxNorm: 677486 Tablet(s) PO every other day No Start Date Active furosemide 40 mg tablet RxNorm: 368838 1 Tablet(s) PO daily No Start Date Active Vitamin D3 5,000 unit tablet RxNorm: 032232 1 Tablet(s) PO daily No Start Date Active erythromycin 250 mg capsule,delayed release RxNorm: 659538 1 Capsule(s) PO AC No Start Date Active Protonix 40 mg tablet,delayed release RxNorm: 553085 1 Tablet(s) PO BID No Start Date Active Cozaar 100 mg tablet RxNorm: 766746 1 Tablet(s) PO daily No Start Date 09/13/2016 Inactive sucralfate 1 gram tablet RxNorm: 764125 Tablet(s) PO QID No Start Date 12/15/2014 Inactive amiodarone 200 mg tablet RxNorm: 990185 2 Tablet(s) PO daily No Start Date 10/13/2015 Inactive buspirone 15 mg tablet RxNorm: 323762 1 Tablet(s) PO daily No Start Date 12/15/2014 Inactive potassium chloride ER 20 mEq tablet,extended release RxNorm: 062340 1 Tablet(s) PO daily No Start Date 10/12/2015 Inactive Prilosec 40 mg capsule,delayed release RxNorm: 432434 1 Capsule(s) PO daily No Start Date 09/02/2015 Inactive [place] 3 capsule RxNorm : Capsule(s) PO No Start Date 10/12/2015 Inactive alprazolam 0.25 mg tablet RxNorm: 267955 Tablet(s) PO QHS No Start Date 12/16/2014 Inactive levothyroxine 125 mcg tablet RxNorm: 669509 1 Tablet(s) PO daily No Start Date 12/23/2014 Inactive liothyronine 5 mcg tablet RxNorm: 351027 1 Tablet(s) PO BID No Start Date 07/21/2015 Inactive Mobic 15 mg tablet RxNorm: 420049 Tablet(s) PO daily No Start Date 05/19/2015 Inactive Norvasc 5 mg tablet RxNorm: 253856 1 Tablet(s) PO daily No Start Date 09/16/2015 Inactive Zofran 4 mg tablet RxNorm: 219250 1 Tablet(s) PO daily as needed No Start Date 05/19/2015 Inactive tramadol 50 mg tablet RxNorm: 968867 1 Tablet(s) PO daily as needed No Start Date 12/16/2014 Inactive amiodarone 200 mg tablet RxNorm: 204641 1 Tablet(s) PO daily No Start Date 10/12/2015 Inactive Zofran ODT 4 mg disintegrating tablet RxNorm: 205123 1 Tablet(s) PO TID as needed No Start Date 05/02/2017 Inactive meclizine 25 mg tablet RxNorm: 207303 Tablet(s) PO as needed No Start Date 05/24/2016 Inactive Pradaxa 150 mg capsule RxNorm: 6577420 1 Capsule(s) PO daily No Start Date 12/15/2014 Inactive metoprolol tartrate 50 mg tablet RxNorm: 145765 1/2 Tablet(s) PO No Start Date 12/15/2014 Inactive Aricept 10 mg tablet RxNorm: 918743 Tablet(s) PO daily No Start Date 05/19/2015 Inactive Calmoseptine 0.44 %-20.6 % topical ointment RxNorm: 148462 1 Application TOP BID and as needed to sore on buttocks No Start Date 09/06/2016 Inactive Zithromax Z-Henrique 250 mg tablet RxNorm: 995794 1 Tablet(s) PO UD No Start Date 11/09/2015 Inactive zpack x 1 Medication Administered Medication Codes Instructions Start Date Status cyanocobalamin (vit B-12) 1,000 mcg/mL injection solution RxNorm: 026098 Milliliter 07/06/2017 No longer Active cyanocobalamin (vit B-12) 1,000 mcg/mL injection solution RxNorm: 871720 Milliliter 06/05/2017 No longer Active cyanocobalamin (vit B-12) 1,000 mcg/mL injection solution RxNorm: 385404 Milliliter 05/25/2017 No longer Active cyanocobalamin (vit B-12) 1,000 mcg/mL injection solution RxNorm: 667480 Milliliter 05/16/2017 No longer Active cyanocobalamin (vit B-12) 1,000 mcg/mL injection solution RxNorm: 244414 1Milliliter 05/01/2017 No longer Active cyanocobalamin (vit B-12) 1,000 mcg/mL injection solution RxNorm: 921605 [facility] 04/18/2017 No longer Active cyanocobalamin (vit B-12) 1,000 mcg/mL injection solution RxNorm: 654970 [facility] 04/06/2017 No longer Active cyanocobalamin (vit B-12) 1,000 mcg/mL injection solution RxNorm: 994888 [facility] 03/22/2017 No longer Active cyanocobalamin (vit B-12) 1,000 mcg/mL injection solution RxNorm: 850586 [facility] 03/09/2017 No longer Active cyanocobalamin (vit B-12) 1,000 mcg/mL injection solution RxNorm: 520960 [facility] 02/23/2017 No longer Active cyanocobalamin (vit B-12) 1,000 mcg/mL injection solution RxNorm: 680028 [facility] 02/09/2017 No longer Active cyanocobalamin (vit B-12) 1,000 mcg/mL injection solution RxNorm: 092801 [facility] 01/23/2017 No longer Active cyanocobalamin (vit B-12) 1,000 mcg/mL injection solution RxNorm: 358801 [facility] 01/10/2017 No longer Active cyanocobalamin (vit B-12) 1,000 mcg/mL injection solution RxNorm: 274091 1[facility] 12/28/2016 No longer Active cyanocobalamin (vit B-12) 1,000 mcg/mL injection solution RxNorm: 977269 [facility] 12/14/2016 No longer Active cyanocobalamin (vit B-12) 1,000 mcg/mL injection solution RxNorm: 797016 [facility] 11/24/2016 No longer Active cyanocobalamin (vit B-12) 1,000 mcg/mL injection solution RxNorm: 194536 1[facility] 11/07/2016 No longer Active cyanocobalamin (vit B-12) 1,000 mcg/mL injection solution RxNorm: 551610 [facility] 10/24/2016 No longer Active cyanocobalamin (vit B-12) 1,000 mcg/mL injection solution RxNorm: 056670 1[facility] 09/29/2016 No longer Active cyanocobalamin (vit B-12) 1,000 mcg/mL injection solution RxNorm: 436057 [facility] 08/29/2016 No longer Active cyanocobalamin (vit B-12) 1,000 mcg/mL injection solution RxNorm: 899089 [facility] 08/04/2016 No longer Active cyanocobalamin (vit B-12) 1,000 mcg/mL injection solution RxNorm: 518885 [facility] 07/21/2016 No longer Active cyanocobalamin (vit B-12) 1,000 mcg/mL injection solution RxNorm: 945940 1[facility] 07/05/2016 No longer Active cyanocobalamin (vit B-12) 1,000 mcg/mL injection solution RxNorm: 287220 1[facility] 06/22/2016 No longer Active cyanocobalamin (vit B-12) 1,000 mcg/mL injection solution RxNorm: 380181 [facility] 06/09/2016 No longer Active cyanocobalamin (vit B-12) 1,000 mcg/mL injection solution RxNorm: 685239 1[facility] 05/25/2016 No longer Active cyanocobalamin (vit B-12) 1,000 mcg/mL injection solution RxNorm: 816103 [facility] 05/10/2016 No longer Active cyanocobalamin (vit B-12) 1,000 mcg/mL injection solution RxNorm: 058972 [facility] 04/26/2016 No longer Active cyanocobalamin (vit B-12) 1,000 mcg/mL injection solution RxNorm: 217152 [facility] 04/11/2016 No longer Active cyanocobalamin (vit B-12) 1,000 mcg/mL injection solution RxNorm: 211117 [facility] 03/31/2016 No longer Active cyanocobalamin (vit B-12) 1,000 mcg/mL injection solution RxNorm: 648769 1[facility] 03/15/2016 No longer Active cyanocobalamin (vit B-12) 1,000 mcg/mL injection solution RxNorm: 065880 [facility] 02/25/2016 No longer Active cyanocobalamin (vit B-12) 1,000 mcg/mL injection solution RxNorm: 458889 [facility] 02/02/2016 No longer Active cyanocobalamin (vit B-12) 1,000 mcg/mL injection solution RxNorm: 722892 [facility] 01/18/2016 No longer Active cyanocobalamin (vit B-12) 1,000 mcg/mL injection solution RxNorm: 803355 [facility] 12/29/2015 No longer Active cyanocobalamin (vit B-12) 1,000 mcg/mL injection solution RxNorm: 162210 [facility] 12/08/2015 No longer Active cyanocobalamin (vit B-12) 1,000 mcg/mL injection solution RxNorm: 476807 [facility] 11/23/2015 No longer Active cyanocobalamin (vit B-12) 1,000 mcg/mL injection solution RxNorm: 948080 [facility] 11/11/2015 No longer Active cyanocobalamin (vit B-12) 1,000 mcg/mL injection solution RxNorm: 815579 1[facility] 10/29/2015 No longer Active cyanocobalamin (vit B-12) 1,000 mcg/mL injection solution RxNorm: 750087 1[facility] 10/12/2015 No longer Active cyanocobalamin (vit B-12) 1,000 mcg/mL injection solution RxNorm: 324104 1[facility] 09/29/2015 No longer Active cyanocobalamin (vit B-12) 1,000 mcg/mL injection solution RxNorm: 675786 1[facility] 09/17/2015 No longer Active cyanocobalamin (vit B-12) 1,000 mcg/mL injection solution RxNorm: 225390 1[facility] 09/03/2015 No longer Active cyanocobalamin (vit B-12) 1,000 mcg/mL injection solution RxNorm: 935128 [facility] 08/17/2015 No longer Active cyanocobalamin (vit B-12) 1,000 mcg/mL injection solution RxNorm: 218899 [facility] 08/06/2015 No longer Active cyanocobalamin (vit B-12) 1,000 mcg/mL injection solution RxNorm: 316319 [facility] 07/22/2015 No longer Active cyanocobalamin (vit B-12) 1,000 mcg/mL injection solution RxNorm: 759248 [facility] 07/08/2015 No longer Active cyanocobalamin (vit B-12) 1,000 mcg/mL injection solution RxNorm: 636099 [facility] 06/23/2015 No longer Active cyanocobalamin (vit B-12) 1,000 mcg/mL injection solution RxNorm: 527060 1[facility] 06/08/2015 No longer Active cyanocobalamin (vit B-12) 1,000 mcg/mL injection solution RxNorm: 836558 [facility] 05/27/2015 No longer Active cyanocobalamin (vit B-12) 1,000 mcg/mL injection solution RxNorm: 940680 1[facility] 05/12/2015 No longer Active cyanocobalamin (vit B-12) 1,000 mcg/mL injection kit RxNorm : 164521 kit 04/30/2015 No longer Active cyanocobalamin (vit B-12) 1,000 mcg/mL injection solution RxNorm: 770269 [facility] 04/16/2015 No longer Active cyanocobalamin (vit B-12) 1,000 mcg/mL injection solution RxNorm: 886829 [facility] 04/02/2015 No longer Active cyanocobalamin (vit B-12) 1,000 mcg/mL injection solution RxNorm: 673203 [facility] 03/18/2015 No longer Active cyanocobalamin (vit B-12) 1,000 mcg/mL injection solution RxNorm: 998469 [facility] 03/03/2015 No longer Active cyanocobalamin (vit B-12) 1,000 mcg/mL injection solution RxNorm: 250660 [facility] 02/18/2015 No longer Active cyanocobalamin (vit B-12) 1,000 mcg/mL injection solution RxNorm: 180615 [facility] 02/04/2015 No longer Active cyanocobalamin (vit B-12) 1,000 mcg/mL injection solution RxNorm: 889641 [facility] 01/22/2015 No longer Active cyanocobalamin (vit B-12) 1,000 mcg/mL injection solution RxNorm: 230161 [facility] 01/08/2015 No longer Active cyanocobalamin (vit B-12) 1,000 mcg/mL injection solution RxNorm: 610594 [facility] 12/25/2014 No longer Active cyanocobalamin (vit B-12) 1,000 mcg/mL injection solution RxNorm: 935061 [facility] 12/10/2014 No longer Active cyanocobalamin (vit B-12) 1,000 mcg/mL injection solution RxNorm: 452587 [facility] 11/26/2014 No longer Active cyanocobalamin (vit B-12) 1,000 mcg/mL injection kit RxNorm : 354263 [facility] 11/12/2014 No longer Active cyanocobalamin (vit B-12) 1,000 mcg/mL injection solution RxNorm: 631803 [facility] 10/28/2014 No longer Active Immunizations Vaccine [...] Item Item Code Result Date Comp Metabolic Vof749 NA 141 mEq/L 01/23/2017 Comp Metabolic Zfn475 K 4.5 mEq/L 01/23/2017 Comp Metabolic Tfy808 CL 107 mEq/L 01/23/2017 Comp Metabolic Lgn068 CO2 21.0 mEq/L 01/23/2017 Comp Metabolic Gej044 ANION GAP 18 01/23/2017 Comp Metabolic Hbm743 GLUCOSE 138 mg/dL 01/23/2017 Comp Metabolic Efv282 Creat 1.0 mg/dL 01/23/2017 Comp Metabolic Hnp405 eGFR 56 ml/min/1.73m2 01/23/2017 Comp Metabolic Ziw960 BUN 26 mg/dL 01/23/2017 Comp Metabolic Vvj587 B/C Ratio 25.7 Ratio 01/23/2017 Comp Metabolic Rwo285 CALCIUM 9.0 mg/dL 01/23/2017 Comp Metabolic Xro834 ALK PHOS 37 U/L 01/23/2017 Comp Metabolic Wig429 AST(SGOT) 20 U/L 01/23/2017 Comp Metabolic Iad479 ALT(SGPT) 25 U/L 01/23/2017 Comp Metabolic Alo789 BILI T 0.9 mg/dL 01/23/2017 Comp Metabolic Ynm663 ALBUMIN 3.8 g/dL 01/23/2017 Comp Metabolic Gtk113 TPRO 6.5 g/dL 01/23/2017 Comp Metabolic Ijo832 GLOB 2.7 g/dL 01/23/2017 Comp Metabolic Dnz902 A/G Ratio 1.4 Ratio 01/23/2017 Comp Metabolic Afs429 Osmo 288 mOsmo 01/23/2017 Free T4 Jcy017 FREE T4 1.05 ng/dL 01/23/2017 %Hba1C Pup363 % HbA1c 83465-7 6.1 % 01/23/2017 %Hba1C Ygj886 Gluc Ave 128 mg/dL 01/23/2017 Tsh Ord6 hTSH II 1.68 uIU/mL 01/23/2017 Culture Urine [id number] URINE CULTURE SEE NOTES 11/10/2016 Culture Urine [id number] Continued Results 11/10/2016 Urine Culture Ucult Complete [...] Ord15 CALCIUM 9.3 mg/dL 09/29/2016 Free T4 Tgn969 FREE T4 0.99 ng/dL 09/07/2016 Cbc With Differential Ord2 WBC 6.40 K/ul 09/07/2016 Cbc With Differential Ord2 RBC 4.70 M/ul 09/07/2016 Cbc With Differential Ord2 HGB 14.1 g/dl 09/07/2016 Cbc With Differential Ord2 Neut% 60.3 % 09/07/2016 Cbc With Differential Ord2 HCT 43.1 % 09/07/2016 Cbc With Differential Ord2 MCV 91.7 fl 09/07/2016 Cbc With Differential Ord2 Lymph% 27.3 % 09/07/2016 Cbc With Differential Ord2 MCH 30.0 pg 09/07/2016 Cbc With Differential Ord2 [place]% 9.8 % 09/07/2016 Cbc With Differential Ord2 Eos% 2.0 % 09/07/2016 Cbc With Differential Ord2 MCHC 32.7 pg 09/07/2016 Cbc With Differential Ord2 Baso% 0.6 % 09/07/2016 Cbc With Differential Ord2 PLT 198 K/ul 09/07/2016 Cbc With Differential Ord2 Neut ABS# 3.85 K/ul 09/07/2016 Cbc With Differential Ord2 RDW 14.5 % 09/07/2016 Cbc With Differential Ord2 Lymph ABS# 1.75 K/ul 09/07/2016 Cbc With Differential Ord2 [place] ABS# 0.6 K/ul 09/07/2016 Cbc With Differential Ord2 Eos ABS# 0.1 K/ul 09/07/2016 Cbc With Differential Ord2 Baso ABS# 0.0 K/ul 09/07/2016 Tsh Ord6 hTSH II 1.41 uIU/mL 09/07/2016 Culture Urine [id number] URINE CULTURE SEE NOTES 06/27/2016 Lipid Ord30 CHOL 196 mg/dL 06/22/2016 Lipid Ord30 HDL 63.0 mg/dl 06/22/2016 Lipid Ord30 TRIG 154 mg/dL 06/22/2016 Lipid Ord30 LDL 102 mg/dL 06/22/2016 Lipid Ord30 C/HDL 3.1 Ratio 06/22/2016 Hepatic Wjl870 ALBUMIN 4.2 g/dL 06/22/2016 Hepatic Ych356 TPRO 7.0 g/dL 06/22/2016 Hepatic Nph547 GLOB 2.8 g/dL 06/22/2016 Hepatic Xmu642 A/G Ratio 1.5 Ratio 06/22/2016 Hepatic Mpa678 ALK PHOS 54 U/L 06/22/2016 Hepatic Und824 ALT(SGPT) 30 U/L 06/22/2016 Hepatic Hlr509 AST(SGOT) 24 U/L 06/22/2016 Hepatic Pfn978 BILI T 1.1 mg/dL 06/22/2016 Hepatic Uin401 BILI D 0.2 mg/dL 06/22/2016 Hepatic Gjf068 BILI I 0.9 mg/dL 06/22/2016 Comp Metabolic Spu859 NA 139 mEq/L 06/14/2016 Comp Metabolic Oxr889 K 4.6 mEq/L 06/14/2016 Comp Metabolic Qam138 CL 108 mEq/L 06/14/2016 Comp Metabolic Qhv332 CO2 22.0 mEq/L 06/14/2016 Comp Metabolic Uuk040 ANION GAP 14 06/14/2016 Comp Metabolic Sqe874 GLUCOSE 114 mg/dL 06/14/2016 Comp Metabolic Evc117 Creat 1.2 mg/dL 06/14/2016 Comp Metabolic Yif008 eGFR 48 ml/min/1.73m2 06/14/2016 Comp Metabolic Hee367 BUN 24 mg/dL 06/14/2016 Comp Metabolic Xhp757 B/C Ratio 20.9 Ratio 06/14/2016 Comp Metabolic Dsa129 CALCIUM 9.9 mg/dL 06/14/2016 Comp Metabolic Oar054 ALK PHOS 47 U/L 06/14/2016 Comp Metabolic Elw990 AST(SGOT) 28 U/L 06/14/2016 Comp Metabolic Twj165 ALT(SGPT) 32 U/L 06/14/2016 Comp Metabolic Eda175 BILI T 0.9 mg/dL 06/14/2016 Comp Metabolic Fxc692 ALBUMIN 4.1 g/dL 06/14/2016 Comp Metabolic Mqo882 TPRO 6.9 g/dL 06/14/2016 Comp Metabolic Yqr287 GLOB 2.8 g/dL 06/14/2016 Comp Metabolic Rgl811 A/G Ratio 1.5 Ratio 06/14/2016 Comp Metabolic Uti988 Osmo 282 mOsmo 06/14/2016 Tsh Ord6 hTSH II 1.26 uIU/mL 06/14/2016 Free T4 Bmz727 FREE T4 1.09 ng/dL 06/14/2016 Tsh Ord6 hTSH II 0.28 uIU/mL 02/02/2016 Digoxin Ord9 DIGOXIN 0.7 NG/ML 02/02/2016 Free T4 Yhk985 FREE T4 1.23 ng/dL 02/02/2016 Hepatic Bzo560 ALBUMIN 4.0 g/dL 02/02/2016 Hepatic Acd952 TPRO 7.0 g/dL 02/02/2016 Hepatic Zpj161 GLOB 3.0 g/dL 02/02/2016 Hepatic Cgm754 A/G Ratio 1.3 Ratio 02/02/2016 Hepatic Bnr114 ALK PHOS 57 U/L 02/02/2016 Hepatic Cgo698 ALT(SGPT) 62 U/L 02/02/2016 Hepatic Eay540 AST(SGOT) 54 U/L 02/02/2016 Hepatic Nin242 BILI T 0.8 mg/dL 02/02/2016 Hepatic Hjs181 BILI D 0.2 mg/dL 02/02/2016 Hepatic Xii698 BILI I 0.6 mg/dL 02/02/2016 Urine Culture Ucult Preliminary No Growth Day 1 11/25/2015 Urine Culture Ucult Complete No Growth Day 2 11/25/2015 Hepatic Nnu833 ALBUMIN 3.9 g/dL 11/11/2015 Hepatic Fph019 TPRO 7.0 g/dL 11/11/2015 Hepatic Fvd955 GLOB 3.1 g/dL 11/11/2015 Hepatic Xhy704 A/G Ratio 1.3 Ratio 11/11/2015 Hepatic Osv157 ALK PHOS 63 U/L 11/11/2015 Hepatic Huo139 ALT(SGPT) 107 U/L 11/11/2015 Hepatic Aii001 AST(SGOT) 101 U/L 11/11/2015 Hepatic Yxm232 BILI T 0.6 mg/dL 11/11/2015 Hepatic Qyn485 BILI D 0.1 mg/dL 11/11/2015 Hepatic Gny272 BILI I 0.5 mg/dL 11/11/2015 Comp Metabolic Egd743 NA 138 mEq/L 10/29/2015 Comp Metabolic Iee233 K 5.0 mEq/L 10/29/2015 Comp Metabolic Mqq136 CL 105 mEq/L 10/29/2015 Comp Metabolic Vip747 CO2 23.0 mEq/L 10/29/2015 Comp Metabolic Tlo219 ANION GAP 15 10/29/2015 Comp Metabolic Gnu372 GLUCOSE 105 mg/dL 10/29/2015 Comp Metabolic Csh529 Creat 1.0 mg/dL 10/29/2015 Comp Metabolic Pzl570 eGFR 55 ml/min/1.73m2 10/29/2015 Comp Metabolic Aza122 BUN 20 mg/dL 10/29/2015 Comp Metabolic Gap500 B/C Ratio 19.4 Ratio 10/29/2015 Comp Metabolic Bca219 CALCIUM 8.8 mg/dL 10/29/2015 Comp Metabolic Bqp724 ALK PHOS 56 U/L 10/29/2015 Comp Metabolic Xfz831 AST(SGOT) 66 U/L 10/29/2015 Comp Metabolic Vmv893 ALT(SGPT) 78 U/L 10/29/2015 Comp Metabolic Ztr602 BILI T 0.7 mg/dL 10/29/2015 Comp Metabolic Zvt051 ALBUMIN 3.6 g/dL 10/29/2015 Comp Metabolic Fyg391 TPRO 6.6 g/dL 10/29/2015 Comp Metabolic Jzz979 GLOB 3.0 g/dL 10/29/2015 Comp Metabolic Drn740 A/G Ratio 1.2 Ratio 10/29/2015 Comp Metabolic Hvj389 Osmo 279 mOsmo 10/29/2015 Comp Metabolic Gkh916 NA 136 mEq/L 09/03/2015 Comp Metabolic Bzp676 K 4.4 mEq/L 09/03/2015 Comp Metabolic Ymh132 CL 103 mEq/L 09/03/2015 Comp Metabolic Qle036 CO2 24.0 mEq/L 09/03/2015 Comp Metabolic Zzc251 ANION GAP 13 09/03/2015 Comp Metabolic Nxn565 GLUCOSE 87 mg/dL 09/03/2015 Comp Metabolic Aqx430 Creat 1.1 mg/dL 09/03/2015 Comp Metabolic Lfu950 eGFR 53 ml/min/1.73m2 09/03/2015 Comp Metabolic Sxf760 BUN 17 mg/dL 09/03/2015 Comp Metabolic Zvw135 B/C Ratio 16.2 Ratio 09/03/2015 Comp Metabolic Mur824 CALCIUM 9.0 mg/dL 09/03/2015 Comp Metabolic Dyy425 ALK PHOS 55 U/L 09/03/2015 Comp Metabolic Zpz938 AST(SGOT) 83 U/L 09/03/2015 Comp Metabolic Yxz713 ALT(SGPT) 126 U/L 09/03/2015 Comp Metabolic Mwu080 BILI T 0.9 mg/dL 09/03/2015 Comp Metabolic Fpe631 ALBUMIN 3.9 g/dL 09/03/2015 Comp Metabolic Txx384 TPRO 6.8 g/dL 09/03/2015 Comp Metabolic Xdm746 GLOB 2.9 g/dL 09/03/2015 Comp Metabolic Rct161 A/G Ratio 1.4 Ratio 09/03/2015 Comp Metabolic Zgw861 Osmo 273 mOsmo 09/03/2015 Total T3 Ord42 TT3 0.6 ng/ml 07/09/2015 Tsh Ord6 hTSH II 1.62 uIU/mL 07/09/2015 Total T3 Ord42 TT3 0.5 ng/ml 04/02/2015 Free T4 Hnv842 FREE T4 1.23 ng/dL 04/02/2015 Tsh Ord6 [...] Procedure Codes Date THER/PROPH/DIAG INJ SC/IM CPT-4: 92344 07/06/2017 PPPS, SUBSEQ VISIT CPT -4: G0439 06/05/2017 THER/PROPH/DIAG INJ SC/IM CPT-4: 41409 06/05/2017 THER/PROPH/DIAG INJ SC/IM CPT-4: 19486 05/25/2017 VITAMIN B12 INJECTION CPT-4: J3420 05/25/2017 THER/PROPH/DIAG INJ SC/IM CPT-4: 62039 05/16/2017 THER/PROPH/DIAG INJ SC/IM CPT-4: 80114 05/01/2017 THER/PROPH/DIAG INJ SC/IM CPT-4: 76462 04/18/2017 THER/PROPH/DIAG INJ SC/IM CPT-4: 31859 04/06/2017 ADMIN INFLUENZA VIRUS VAC CPT-4: G0008 03/22/2017 FLU VACC PRSV FREE INC ANTIG CPT-4: 91260 03/22/2017 THER/PROPH/DIAG INJ SC/IM CPT-4: 09810 03/09/2017 THER/PROPH/DIAG INJ SC/IM CPT-4: 97029 02/23/2017 THER/PROPH/DIAG INJ SC/IM CPT-4: 53501 02/09/2017 THER/PROPH/DIAG INJ SC/IM CPT-4: 27768 01/23/2017 THER/PROPH/DIAG INJ SC/IM CPT-4: 69313 01/10/2017 THER/PROPH/DIAG INJ SC/IM CPT-4: 10263 12/28/2016 THER/PROPH/DIAG INJ SC/IM CPT-4: 07455 12/14/2016 THER/PROPH/DIAG INJ SC/IM CPT-4: 70367 11/24/2016 URINALYSIS NONAUTO W/O SCOPE CPT-4: 12647 11/07/2016 THER/PROPH/DIAG INJ SC/IM CPT-4: 41157 11/07/2016 THER/PROPH/DIAG INJ SC/IM CPT-4: 18428 10/24/2016 THER/PROPH/DIAG INJ SC/IM CPT-4: 53884 09/29/2016 THER/PROPH/DIAG INJ SC/IM CPT-4: 26169 08/29/2016 THER/PROPH/DIAG INJ SC/IM CPT-4: 57219 08/04/2016 THER/PROPH/DIAG INJ SC/IM CPT-4: 36428 07/21/2016 THER/PROPH/DIAG INJ SC/IM CPT-4: 38901 07/05/2016 THER/PROPH/DIAG INJ SC/IM CPT-4: 62324 06/22/2016 URINALYSIS NONAUTO W/O SCOPE CPT-4: 11406 06/22/2016 THER/PROPH/DIAG INJ SC/IM CPT-4: 51503 06/09/2016 PPPS, SUBSEQ VISIT CPT -4: G0439 05/30/2016 ADMIN PNEUMOCOCCAL VACCINE SNOMED CT: 95107857 CPT-4: G0009 05/25/2016 Pneumococcal Polysaccharide Vaccine, 23-Valent, Ad CPT-4: 85826 05/25/2016 THER/PROPH/DIAG INJ SC/IM CPT-4: 95491 05/25/2016 THER/PROPH/DIAG INJ SC/IM CPT-4: 93730 05/10/2016 TRIAMCINOLONE ACET INJ NOS CPT-4: J3301 04/26/2016 VITAMIN B12 INJECTION CPT-4: J3420 04/26/2016 THER/PROPH/DIAG INJ SC/IM CPT-4: 61173 04/11/2016 THER/PROPH/DIAG INJ SC/IM CPT-4: 91369 03/31/2016 ADMIN INFLUENZA VIRUS VAC CPT-4: G0008 03/15/2016 FLU VACC 4 STEPHANIE [address] YRS [address] IM SNOMED CT: 79532479 CPT-4: 33090 03/15/2016 THER/PROPH/DIAG INJ SC/IM CPT-4: 30909 02/25/2016 THER/PROPH/DIAG INJ SC/IM CPT-4: 02887 02/02/2016 THER/PROPH/DIAG INJ SC/IM CPT-4: 67130 01/18/2016 VITAMIN B12 INJECTION CPT-4: J3420 12/29/2015 THER/PROPH/DIAG INJ SC/IM CPT-4: 36922 12/29/2015 THER/PROPH/DIAG INJ SC/IM CPT-4: 39285 12/08/2015 THER/PROPH/DIAG INJ SC/IM CPT-4: 21884 11/23/2015 URINALYSIS NONAUTO W/O SCOPE CPT-4: 58496 11/23/2015 THER/PROPH/DIAG INJ SC/IM CPT-4: 53522 11/11/2015 THER/PROPH/DIAG INJ SC/IM CPT-4: 85695 10/29/2015 THER/PROPH/DIAG INJ SC/IM CPT-4: 56924 10/12/2015 VITAMIN B12 INJECTION CPT-4: J3420 10/12/2015 THER/PROPH/DIAG INJ SC/IM CPT-4: 99439 09/29/2015 THER/PROPH/DIAG INJ SC/IM CPT-4: 79252 09/17/2015 THER/PROPH/DIAG INJ SC/IM CPT-4: 37770 09/03/2015 THER/PROPH/DIAG INJ SC/IM CPT-4: 24690 08/17/2015 THER/PROPH/DIAG INJ SC/IM CPT-4: 46018 08/06/2015 THER/PROPH/DIAG INJ SC/IM CPT-4: 84158 07/22/2015 THER/PROPH/DIAG INJ SC/IM CPT-4: 81912 07/08/2015 THER/PROPH/DIAG INJ SC/IM CPT-4: 71739 06/23/2015 THER/PROPH/DIAG INJ SC/IM CPT-4: 00389 06/08/2015 THER/PROPH/DIAG INJ SC/IM CPT-4: 17073 05/27/2015 DESTRUCT PREMALG LESION CPT-4: 41425 05/19/2015 DESTRUCT PREMALG LES 2-14 CPT-4: 34597 05/19/2015 THER/PROPH/DIAG INJ SC/IM CPT-4: 28256 05/12/2015 VITAMIN B12 INJECTION CPT-4: J3420 05/12/2015 THER/PROPH/DIAG INJ SC/IM CPT-4: 05327 04/30/2015 VITAMIN B12 INJECTION CPT-4: J3420 04/30/2015 THER/PROPH/DIAG INJ SC/IM CPT-4: 96560 04/16/2015 THER/PROPH/DIAG INJ SC/IM CPT-4: 13056 04/02/2015 VITAMIN B12 INJECTION CPT-4: J3420 04/02/2015 THER/PROPH/DIAG INJ SC/IM CPT-4: 54085 03/18/2015 THER/PROPH/DIAG INJ SC/IM CPT-4: 55173 03/03/2015 THER/PROPH/DIAG INJ SC/IM CPT-4: 51022 02/18/2015 THER/PROPH/DIAG INJ SC/IM CPT-4: 05818 02/04/2015 VITAMIN B12 INJECTION CPT-4: J3420 02/04/2015 THER/PROPH/DIAG INJ SC/IM CPT-4: 20528 01/22/2015 THER/PROPH/DIAG INJ SC/IM CPT-4: 36428 01/08/2015 VITAMIN B12 INJECTION CPT-4: J3420 01/08/2015 THER/PROPH/DIAG INJ SC/IM CPT-4: 63668 12/25/2014 VITAMIN B12 INJECTION CPT-4: J3420 12/25/2014 THER/PROPH/DIAG INJ SC/IM CPT-4: 35783 12/10/2014 VITAMIN B12 INJECTION CPT-4: J3420 12/10/2014 THER/PROPH/DIAG INJ SC/IM CPT-4: 80830 11/26/2014 VITAMIN B12 INJECTION CPT-4: J3420 11/26/2014 THER/PROPH/DIAG INJ SC/IM CPT-4: 19980 11/12/2014 VITAMIN B12 INJECTION CPT-4: J3420 11/12/2014 THER/PROPH/DIAG INJ SC/IM CPT-4: 16626 10/28/2014 Vital Signs Date Vital 07/06/2017 Blood Pressure 1: 132/66 Code : 8480-6 BMI: 29.4 Code : 40213-5 Heart Rate 1 : 85 bpm Height: 5'6" SpO2: 97% Weight: 182 lbs 06/05/2017 BMI: 29.1 Code: 15061-1 Height: 5'6" Weight: 180 lbs 05/25/2017 Blood Pressure 1: 126/76 Code : 8480-6 BMI: 29.1 Code : 67535-0 Heart Rate 1 : 77 bpm Height: 5'6" SpO2: 97% Weight: 180 lbs 03/23/2017 Blood Pressure 1: 142/84 Code : 8480-6 BMI: 29.1 Code : 85918-8 Heart Rate 1 : 91 bpm Height: 5'6" SpO2: 97% Weight: 180 lbs 01/23/2017 Blood Pressure 1: 150/90 Code : 8480-6 BMI: 29.9 Code : 51651-5 Heart Rate 1 : 81 bpm Height: 5'6" SpO2: 97% Weight: 185 lbs 11/02/2016 Blood Pressure 1: 148/78 Code : 8480-6 BMI: 29.7 Code : 82889-1 Heart Rate 1 : 87 bpm Height: 5'6" SpO2: 97% Weight: 184 lbs 09/29/2016 Blood Pressure 1: 128/78 Code : 8480-6 BMI: 29.7 Code : 71898-5 Heart Rate 1 : 78 bpm Height: 5'6" SpO2: 98% Weight: 184 lbs 07/26/2016 Blood Pressure 1: 138/72 Code : 8480-6 BMI: 30.0 Code : 02557-0 Heart Rate 1 : 85 bpm Height: 5'6" SpO2: 97% Weight: 186 lbs 05/30/2016 Blood Pressure 1: 132/76 Code : 8480-6 BMI: 30.0 Code : 36256-8 Heart Rate 1 : 80 bpm Height: 5'6" SpO2: 98% Waist Measure (cm): 99 cm Weight: 186 lbs 05/25/2016 Blood Pressure 1: 132/76 Code : 8480-6 BMI: 30.0 Code : 39705-3 Heart Rate 1 : 80 bpm Height: 5'6" SpO2: 96% Weight: 186 lbs 02/25/2016 Blood Pressure 1: 110/64 Code : 8480-6 Heart Rate 1: 82 bpm Height: SpO2: 96% Weight: 01/25/2016 Blood Pressure 1: 118/70 Code : 8480-6 BMI: 30.0 Code : 05589-4 Heart Rate 1 : 78 bpm Height: 5'6" SpO2: 97% Weight: 186 lbs 11/11/2015 Blood Pressure 1: 128/82 Code : 8480-6 BMI: 29.2 Code : 81859-0 Heart Rate 1 : 86 bpm Height: 5'6" SpO2: 96% Temperature: 36.4 (C) / 97.6 (F) Weight: 181 lbs 10/12/2015 Blood Pressure 1: 118/70 Code : 8480-6 BMI: 29.2 Code : 39302-9 Heart Rate 1 : 81 bpm Height: 5'6" SpO2: 95% Weight: 181 lbs 09/03/2015 Blood Pressure 1: 138/78 Code : 8480-6 BMI: 29.9 Code : 18725-2 Heart Rate 1 : 88 bpm Height: 5'6" SpO2: 97% Weight: 185 lbs 05/19/2015 Blood Pressure 1: 146/78 Code : 8480-6 BMI: 30.0 Code : 55431-0 Heart Rate 1 : 66 bpm Height: 5'6" SpO2: 97% Weight: 186 lbs 05/12/2015 Blood Pressure 1: 120/70 Code : 8480-6 BMI: 29.9 Code : 36876-4 Heart Rate 1 : 89 bpm Height: 5'6" SpO2: 95% Weight: 185 lbs 01/13/2015 Blood Pressure 1: 140/90 Code : 8480-6 BMI: 30.3 Code : 36443-6 Heart Rate 1 : 84 bpm Height: 5'6" SpO2: 95% Weight: 188 lbs 12/16/2014 Blood Pressure 1: 140/82 Code : 8480-6 BMI: 29.5 Code : 92361-3 Heart Rate 1 : 86 bpm Height: [...] Directive data Encounters Encounter Performer Location Codes Date ([id number]) [id number] EST. PATIENT, LEVEL IV Diagnosis: Atrophy of thyroid (acquired)[ICD10: E03.4] Diagnosis: Cough[ICD10: R05] Diagnosis: Laceration without foreign body of left forearm, initial encounter[ ICD10: S51.812A] Diagnosis: Candidiasis of skin and nail[ICD10: B37.2] Diagnosis: Other vitamin B12 deficiency anemias[ICD10: D51.8] Diagnosis: Slow transit constipation[ICD10: K59.01] Yarely Vega MD, [facility] CPT-4: 61692 07/06/2017 [id number]) [id number] EST. PATIENT, LEVEL IV Diagnosis: Essential (primary) hypertension[ICD10: I10] Diagnosis: Chronic atrial fibrillation[ICD10: I48.2] Diagnosis: Atrophy of thyroid (acquired)[ICD10: E03.4] Diagnosis: 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 factor deficiency[ ICD10: D51.0] Yarely Vega MD, [facility] CPT-4: 51767 05/25/2017 ([id number]) [id number] EST. PATIENT, LEVEL IV Diagnosis: Type 2 diabetes mellitus without complications[ICD10: E11.9] Diagnosis: Atrophy of thyroid (acquired)[ICD10: E03.4] Diagnosis: Chest pain on breathing[ICD10: R07.1] Diagnosis: Chondrocostal junction syndrome [Tietze][ICD10: M94.0] Diagnosis: Other fatigue[ICD10: R53.83] [facility] CPT- 4: 07485 03/23/2017 [id number] EST. PATIENT, LEVEL IV Diagnosis: Type 2 diabetes mellitus without complications[ICD10: E11.9] Diagnosis: Essential (primary) hypertension[ICD10: I10] Diagnosis: Headache[ICD10: R51] Diagnosis: Atrophy of thyroid (acquired)[ICD10: E03.4] Diagnosis: Vitamin B12 deficiency anemia, unspecified[ICD10: D51.9] [facility] CPT-4: 28564 01/23/2017 [id number] EST. PATIENT, LEVEL III Diagnosis: Low back pain[ICD10: M54.5] Diagnosis: Pain in thoracic spine[ICD10: M54.6] Brianna Vega MD, [facility] CPT-4: 30057 11/02/2016 ([id number]) 11527 EST. PATIENT, LEVEL IV Diagnosis: Essential (primary) hypertension[ICD10: I10] Diagnosis: Other vitamin B12 deficiency anemias[ICD10: D51.8] Diagnosis: Generalized abdominal pain[ICD10: R10.84] [facility] CPT-4: 39023 09/29/2016 ([id number]) [id number] EST. PATIENT, LEVEL IV Diagnosis: Essential (primary) hypertension[ICD10: I10] Yarely Vega MD, [facility] CPT-4: 91011 07/26/2016 ([id number]) 58253 EST. PATIENT, LEVEL IV Diagnosis: Benign lipomatous neoplasm of skin and subcutaneous tissue of right leg[ICD10: D17.23] Diagnosis: Pain in right ankle and joints of right foot[ICD10: M25.571] Diagnosis: Encounter for immunization[ICD10: Z23] Diagnosis: Vitamin B12 deficiency anemia, unspecified[ICD10: D51.9] Yarely Vega MD, [facility] CPT-4: 67761 05/25/2016 80904 EST. PATIENT, LEVEL III Diagnosis: Other chest pain[ICD10: R07.89] Diagnosis: Other vitamin B12 deficiency anemias[ICD10: D51.8] Brianna Vega MD, [facility] CPT-4: 20977 02/25/2016 ([id number]) 01378 EST. PATIENT, LEVEL IV Diagnosis: Essential (primary) hypertension[ICD10: I10] Diagnosis: Hypothyroidism, unspecified[ICD10: E03.9] Diagnosis: Other hypersomnia[ICD10: G47.19] Diagnosis: Idiopathic sleep related nonobstructive alveolar hypoventilation[ ICD10: G47.34] [facility] CPT-4: 16708 01/25/2016 23969 EST. PATIENT, LEVEL III Diagnosis: Other vitamin B12 deficiency anemias[ICD10: D51.8] Diagnosis: Acute nasopharyngitis [common cold][ICD10: J00] Diagnosis: Other allergic rhinitis[ICD10: J30.89] [facility] CPT-4: 16283 11/11/2015 ([id number]) 11724 EST. PATIENT, LEVEL IV Diagnosis: Essential tremor[ICD10: G25.0] Diagnosis: Chronic fatigue, unspecified[ICD10: R53.82] Diagnosis: Other hypersomnia[ICD10: G47.19] Diagnosis: Essential (primary) hypertension[ICD10: I10] Yarely Vega MD, [facility] CPT-4: 19980 10/12/2015 ([id number]) 91067 EST. PATIENT, LEVEL IV Diagnosis: Essential (primary) hypertension[ICD10: I10] Diagnosis: Chronic atrial fibrillation[ICD10: I48.2] Diagnosis: Abnormal levels of other serum enzymes[ICD10: R74.8] Diagnosis: Type 2 diabetes mellitus without complications[ICD10: E11.9] Diagnosis: Vitamin B12 deficiency anemia, unspecified[ICD10: D51.9] Yarely Vega MD, [facility] CPT-4: 78768 09/03/2015 ([id number]) 59148 EST. PATIENT, LEVEL III Diagnosis: Nausea[ICD10: R11.0] Diagnosis: Essential tremor[ICD10: G25.0] Diagnosis: Actinic keratosis[ICD10: L57.0] Yarely Vega MD, [facility] CPT- 4: 17340 05/19/2015 ([id number]) 60944 EST. PATIENT, LEVEL IV Diagnosis: Vitamin B12 deficiency anemia, unspecified[ICD10: D51.9] Diagnosis: Chronic atrial fibrillation[ICD10: I48.2] Diagnosis: Headache[ICD10: R51] Diagnosis: Chronic fatigue, unspecified[ICD10: R53.82] Diagnosis: Cervicalgia[ICD10: M54.2] Yarely Vega MD, [facility] CPT-4: 91897 05/12/2015 ([id number]) 15947 EST. PATIENT, LEVEL IV Diagnosis: ESSENTIAL HYPERTENSION[ICD9: 401.9] Diagnosis: Afib[ICD9: 427.31] Diagnosis: Anxiety[ICD9: 300.00] Diagnosis: Insomnia[ICD9: 780.52] Yarely Vega MD, [facility] CPT-4: 02679 01/13/2015 ([id number]) OFFICE VISIT, NEW - LEVEL 4 Diagnosis: Hypothyroidism[ICD9: 244.9] Diagnosis: DIABETES TYPE II[ICD9: 250.00] Diagnosis: ESSENTIAL HYPERTENSION[ICD9: 401.9] Diagnosis: Afib[ICD9: 427.31] Diagnosis: Anxiety[ICD9: 300.00] Diagnosis: B12 deficiency[ICD9: 266.2] Janet Vega MD, [facility] CPT-4: 09791 12/16/2014 Plan of Care Planned Activity Notes Codes Status Date Appointment: Yarely Vega WPtel: [phone] [facility] (15 min) Moderate 07/06/2017 Patient Education: Patient Medication Summary Completed 07/06/2017 [facility]ment[phone] ([facility] Moderate 06/20/2017 Appointment: Injection 06/05/2017 Appointment: [phone] [facility] [place] [facility] - Annual Wellness Visit 06/05/2017 Patient Education: Patient Medication Summary Completed 06/05/2017 [phone] [place] ([facility] min) Moderate 05/25/2017 Patient Education: Patient Medication Summary Completed 05/25/2017 Patient Education: Hypertension Completed 05/25/2017 Appointment: Injection 05/16/2017 Patient Education: Patient Medication Summary Completed 05/16/2017 Appointment: Injection 05/01/2017 Patient Education: Patient Medication Summary Completed 05/01/2017 Appointment: Injection 04/18/2017 Patient Education: Patient Medication Summary Completed 04/18/2017 Appointment: Injection 04/06/2017 Patient Education: Patient Medication Summary Completed 04/06/2017 App[facility]ment: [phone] [facility] [place] (15 min) Moderate 03/23/2017 Patient Education: Patient Medication Summary Completed 03/23/2017 Appointment: Injection 03/22/2017 Patient Education: Patient Medication Summary Completed 03/22/2017 Appointment: Injection 03/09/2017 Patient Education: Patient Medication Summary Completed 03/09/2017 Appointment: Injection 02/23/2017 Patient Education: Patient Medication Summary Completed 02/23/2017 Appointment: Injection 02/09/2017 Appointment: Nurse Visit 02/09/2017 Patient Education: Patient Medication Summary Completed 02/09/2017 App[facility]ment: [phone] [facility] [place] (15 min) Moderate 01/23/2017 Patient Education: Patient Medication Summary Completed 01/23/2017 Appointment: Injection 01/10/2017 Patient Education: Patient Medication Summary Completed 01/10/2017 Appointment: Injection 12/28/2016 Patient Education: Patient Medication Summary Completed 12/28/2016 Appointment: Injection 12/14/2016 Patient Education: Patient Medication Summary Completed 12/14/2016 Appointment: Injection 11/24/2016 Patient Education: Patient Medication Summary Completed 11/24/2016 Appointment: Injection 11/07/2016 Patient Education: Patient Medication Summary Completed 11/07/2016 Appointment: Brianna Otoole WPtel: [facility] [place] (15 min) Moderate 11/02/2016 Patient Education: Patient Medication Summary Completed 11/02/2016 Appointment: Injection 10/24/2016 Patient Education: Patient Medication Summary Completed 10/24/2016 Appointment: [facility] [phone] [facility] [place] (15 min) Moderate 09/29/2016 Patient Education: Patient Medication Summary Completed 09/29/2016 Appointment: [facility] [phone] [facility] [place] (15 min) Moderate 09/27/2016 App[facility]ment: [facility] [phone] [facility] [place] (15 min) Moderate 09/20/2016 App[facility]ment: [phone] [facility] [place] (15 min) Moderate 09/20/2016 Patient Education: Patient Medication Summary Completed 09/06/2016 Appointment: Yarely [facility]ega [facility]el[facility] ([facility] min) Moderate 08/30/2016 Appointment: Injection 08/29/2016 Patient Education: Patient Medication Summary Completed 08/29/2016 Appointment: Injection 08/04/2016 Patient Education: Patient Medication Summary Completed 08/04/2016 Appointment: [facility] [phone] [facility] ([facility] min) Moderate 07/26/2016 Patient Education: [...] Patient Education: Patient Medication Summary Completed 06/09/2016 Appointment: Brianna Otoole WPtel[facility] [facility] - Annual Wellness Visit 05/30/2016 Patient Education: Patient Medication Summary Completed 05/30/2016 Patient Education: Obesity Completed 05/30/2016 Appointment: Yarely Vega WPtel[facility] (15 min) Moderate 05/25/2016 Patient Education: Patient Medication Summary Completed 05/25/2016 Patient Education: Obesity Completed 05/25/2016 Care Plan: Referral Order SNOMED-CT : [id number] Pending 05/25/2016 Appointment: Injection 05/10/2016 Patient Education: Patient Medication Summary Completed 05/10/2016 Appointment: Injection 04/26/2016 Patient Education: Patient Medication Summary Completed 04/26/2016 Appointment: Injection 04/11/2016 Patient Education: Patient Medication Summary Completed 04/11/2016 Appointment: Injection 03/31/2016 Patient Education: Patient Medication Summary Completed 03/31/2016 Patient Education: Patient Medication Summary Completed 03/22/2016 Care Plan: SCREENINGMAMMOGRAPHYDIGITAL LOINC : 12491-9 Pending 03/22/2016 Appointment: Injection 03/15/2016 Patient Education: Patient Medication Summary Completed 03/15/2016 Appointment: [facility] [phone] [facility] (15 min) Moderate 02/25/2016 Patient Education: Patient Medication Summary Completed 02/25/2016 Appointment: Injection 02/02/2016 Patient Education: Patient Medication Summary Completed 02/02/2016 Patient Education: Patient Medication Summary Completed 01/25/2016 Appointment: Injection 01/18/2016 Patient Education: Patient Medication Summary Completed 01/18/2016 Appointment: Injection 12/29/2015 Patient Education: Patient Medication Summary Completed 12/29/2015 Appointment: Injection 12/08/2015 Patient Education: Patient Medication Summary Completed 12/08/2015 Appointment: Injection 11/23/2015 Patient Education: Patient Medication Summary Completed 11/23/2015 Appointment: Injection 11/11/2015 Patient Education: Patient Medication Summary Completed 11/11/2015 Appointment: Injection 10/29/2015 Patient Education: Patient Medication Summary Completed 10/29/2015 Appointment: [facility] [phone] [facility] (15 min) Moderate 10/12/2015 Patient Education: Patient Medication Summary Completed 10/12/2015 Patient Education: Hypertension Completed 10/12/2015 Appointment: Nurse Visit 09/29/2015 Patient Education: Patient Medication Summary Completed 09/29/2015 Appointment: Injection 09/17/2015 Patient Education: Patient Medication Summary Completed 09/17/2015 Patient Education: Patient Medication Summary Completed 09/03/2015 Patient Education: Hypertension Completed 09/03/2015 Appointment: Injection 08/17/2015 Patient Education: Patient Medication Summary Completed 08/17/2015 Appointment: [facility] [address] [facility] ([facility] min) Moderate 08/11/2015 Appointment: Injection 08/06/2015 Patient Education: Patient Medication Summary Completed 08/06/2015 Patient Education: Patient Medication Summary Completed 07/22/2015 Patient Education: Patient Medication Summary Completed 07/08/2015 Appointment: Injection 06/23/2015 Patient Education: Patient Medication Summary Completed 06/23/2015 Appointment: Injection 06/08/2015 Patient Education: Patient Medication Summary Completed 06/08/2015 Appointment: Injection 05/27/2015 Patient Education: Patient Medication Summary Completed 05/27/2015 Appointment: Yarely Vega [facility]Ptel[facility] ([facility]) [facility] 05/19/2015 Patient Education: Patient Medication Summary Completed 05/19/2015 Patient Education: Patient Medication Summary Completed 05/12/2015 [...] Patient Education: Patient Medication Summary Completed 01/22/2015 Appointment: Yarely Vega WPtel: [facility] (15 min) Moderate 01/13/2015 Patient Education: Patient Medication Summary Completed 01/13/2015 Patient Education: Hypertension Completed 01/13/2015 Appointment: Injection 01/08/2015 Patient Education: Patient Medication Summary Completed 01/08/2015 Appointment: Injection 12/25/2014 Patient Education: Patient Medication Summary Completed 12/25/2014 Appointment: Janet Fam WPtel: [facility] [place] ([place] New Patient 12/16/2014 Patient Education: Patient Medication Summary Completed 12/16/2014 Appointment: Injection 12/10/2014 Patient Education: Patient Medication Summary Completed 12/10/2014 Appointment: Injection 11/26/2014 Patient Education: Patient Medication Summary Completed 11/26/2014 Patient Education: Patient Medication Summary Completed 11/12/2014 Appointment: Nurse Visit 10/28/2014 Patient Education: Patient Medication Summary Completed 10/28/2014 Appointment: Injection 10/14/2014 Referral: Genaro Bravo Referral Appointment Requested Instructions No Instructions
--- OUTSIDE RECORDS SUMMARY | 2017-09-17 09:35 | XMS REPORT | CCD ---
Author Author [facility] Organization [facility] Address [address] [place] [address] Phone Care Team Providers Care Plant Biology Professor Name Role Phone PP Unavailable CCM Unavailable Summary Purpose Interface Exchange Insurance Providers Payer name Policy type / Coverage type Covered libertarian ID Effective Begin Date Effective End Date WPS Medicare Part B Medicare Part B [id number] Unknown Unknown Principal Life Insurance Medicare Part B [id number] Unknown Unknown Family history Brother Diagnosis Age At Onset Heart Attack Unknown Mother Diagnosis Age At Onset Hypertension Unknown kidney disease Unknown Stroke Unknown Father Diagnosis Age At Onset Arthritis Unknown Social History Social History Element Codes Description Effective Dates Employment Unknown Retired worked at [employer] 2016 Marital status Unknown Single 12/16/[address]: 9984352 Former smoker 12/16/[address]: 418755211 Never drinks alcohol 12/16/2014 Allergies, Adverse Reactions, [...] ICD-9: 564.01 ICD-10: K59.01 Active 07/06/2017 Unknown Acute laryngopharyngitis ICD-9: 465.0 ICD-10: J06.0 Active 06/20/2017 Unknown Other allergic rhinitis ICD-9: 477.8 ICD-10: J30.89 Active 11/10/2015 Unknown Other vitamin B12 deficiency anemias ICD-9: [...] ICD-9: 460 ICD-10: J00 Active 11/10/2015 Unknown Chronic fatigue, unspecified ICD-9: [...] constipation ICD-9: 564.01 ICD-10: K59.01 07/06/2017 Active Acute laryngopharyngitis ICD-9: 465.0 ICD-10: J06.0 06/20/2017 Active Other allergic rhinitis ICD-9: 477.8 ICD-10: J30.89 11/10/2015 Active Other vitamin B12 deficiency anemias ICD-9: [...] cold] ICD-9: 460 ICD-10: J00 11/10/2015 Active Chronic fatigue, unspecified ICD-9: 780.71 [...] Start Date Stop Date Status Fill Instructions Tamiflu 75 mg capsule RxNorm: 670994 1 Capsule(s) PO BID 2017 No Stop Date Active nystatin 100,000 unit/gram topical powder RxNorm: 236856 1 Gram(s) TOP QID 07/14/2017 07/23/2017 Inactive levothyroxine 125 mcg tablet RxNorm: 566610 Tablet(s) 1 Tablet(s) PO daily 07/10/2017 01/05/2018 Active nystatin 100,000 unit/gram topical powder RxNorm: 357693 1 Gram(s) TOP QID 07/06/2017 07/13/2017 Inactive cyanocobalamin (vit B-12) 1,000 mcg/mL injection solution RxNorm: 511135 Milliliter(s) Inj 07/06/2017 07/06/2017 Inactive Kenalog 40 mg/mL suspension for injection RxNorm: 5024042 1 Milliliter(s) Inj 06/20/2017 06/20/2017 Inactive doxycycline hyclate 100 mg capsule RxNorm: 7702667 1 Capsule(s) PO BID 06/20/2017 06/26/2017 Inactive cyanocobalamin (vit B-12) 1,000 mcg/mL injection solution RxNorm: 907712 Milliliter(s) Inj 06/20/2017 06/20/2017 Inactive Mobic 15 mg tablet RxNorm: 308703 1 Tablet(s) PO daily 201606/08/2018 Active Keflex 500 mg capsule RxNorm: 236166 1 Capsule(s) PO TID 201606/23/2017 Inactive Please deliver to patient cyanocobalamin (vit B-12) 1,000 mcg/mL injection solution RxNorm: 031705 Milliliter(s) Inj 06/05/2017 06/05/2017 Inactive buspirone 15 mg tablet RxNorm: 733807 TAKE 1 TABLET BY MOUTH TWICE DAILY 05/31/2017 05/25/2018 Active Generic For:BUSPAR 15MG 05/31/2017 9:19:20 AM hydrocodone 5 mg-acetaminophen 325 mg tablet RxNorm: 734991 1-2 Tablet(s) PO Q6 as needed for pain 05/25/2017 06/23/2017 Inactive cyanocobalamin (vit B-12) 1,000 mcg/mL injection solution RxNorm: 610424 Milliliter(s) Inj 05/25/2017 05/25/2017 Inactive amiodarone 200 mg tablet RxNorm: 463228 1/2 Tablet(s) PO daily 05/22/2017 No Stop Date Active cardiology decreased to 100mg daily cyanocobalamin (vit B-12) 1,000 mcg/mL injection solution RxNorm: 582517 Milliliter(s) Inj 05/16/2017 05/16/2017 Inactive Zofran ODT 4 mg disintegrating tablet RxNorm: 840583 1 Tablet(s) PO TID as needed 05/03/2017 05/04/2017 Inactive hydrocodone 5 mg-acetaminophen 325 mg tablet RxNorm: 460384 1-2 Tablet(s) PO Q6 as needed for pain 05/01/2017 05/05/2017 Inactive cyanocobalamin (vit B-12) 1,000 mcg/mL injection solution RxNorm: 000628 1 Milliliter(s) Inj 05/01/2017 05/01/2017 Inactive cyanocobalamin (vit B-12) 1,000 mcg/mL injection solution RxNorm: 979695 INJECT ONE 1 ML EVERY TWO WEEKS 04/26/20172018 Active 04/26/2017 9:08:52 AM Zoloft 50 mg tablet RxNorm: 541964 Tablet(s) TAKE 1 TABLET BY MOUTH DAILY 04/25/2017 10/21/2017 Active Generic For:ZOLOFT 50MG cyanocobalamin (vit B-12) 1,000 mcg/mL injection solution RxNorm: 872701 Milliliter(s) Inj 04/18/2017 04/18/2017 Inactive liothyronine 5 mcg tablet RxNorm: 014587 1 Tablet(s) PO BID 10/09/2017 Active cyanocobalamin (vit B-12) 1,000 mcg/mL injection solution RxNorm: 627906 Milliliter(s) Inj 04/06/2017 04/06/2017 Inactive hydrocodone 5 mg-acetaminophen 325 mg tablet RxNorm: 243732 1-2 Tablet(s) PO Q6 as needed for pain 04/06/2017 04/10/2017 Inactive cyanocobalamin (vit B-12) 1,000 mcg/mL injection solution RxNorm: 552606 Milliliter(s) Inj 03/22/2017 03/22/2017 Inactive alprazolam 0.25 mg tablet RxNorm: 204716 1 Tablet(s) PO BID 09/12/2017 Active alprazolam 0.25 mg tablet RxNorm: 228559 1 Tablet(s) PO BID 09/10/2017 Active hydrocodone 5 mg-acetaminophen 325 mg tablet RxNorm: 694439 1-2 Tablet(s) PO Q6 as needed for pain 03/09/2017 03/13/2017 Inactive cyanocobalamin (vit B-12) 1,000 mcg/mL injection solution RxNorm: 269246 Milliliter(s) Inj 03/09/2017 03/09/2017 Inactive cyanocobalamin (vit B-12) 1,000 mcg/mL injection solution RxNorm: 279879 Milliliter(s) Inj 02/23/2017 02/23/2017 Inactive cyanocobalamin (vit B-12) 1,000 mcg/mL injection solution RxNorm: 119286 Milliliter(s) Inj 02/09/2017 02/09/2017 Inactive hydrocodone 5 mg-acetaminophen 325 mg tablet RxNorm: 049768 1-2 Tablet(s) PO Q6 as needed for pain 02/08/2017 02/12/2017 Inactive Topamax 25 mg tablet RxNorm: 897643 1 Tablet(s) PO BID 201605/22/2017 Inactive Generic For:TOPAMAX 25MG 12/06/2016 9:15:13 AM cyanocobalamin (vit B-12) 1,000 mcg/mL injection solution RxNorm: 249707 Milliliter(s) Inj 01/23/2017 01/23/2017 Inactive cyanocobalamin (vit B-12) 1,000 mcg/mL injection solution RxNorm: 129844 Milliliter(s) Inj 01/10/2017 01/10/2017 Inactive hydrocodone 5 mg-acetaminophen 325 mg tablet RxNorm: 239880 1-2 Tablet(s) PO Q6 as needed for pain 01/09/2017 01/13/2017 Inactive cyanocobalamin (vit B-12) 1,000 mcg/mL injection solution RxNorm: 878949 1 Milliliter(s) Inj 12/28/2016 12/28/2016 Inactive cyanocobalamin (vit B-12) 1,000 mcg/mL injection solution RxNorm: 596395 Milliliter(s) Inj 12/14/2016 12/14/2016 Inactive buspirone 15 mg tablet RxNorm: 153520 1 Tablet(s) PO BID 201605/30/2017 Inactive hydrocodone 5 mg-acetaminophen 325 mg tablet RxNorm: 070963 1-2 Tablet(s) PO Q6 as needed for pain 12/08/2016 12/12/2016 Inactive Topamax 25 mg tablet RxNorm: 251619 TAKE 1 TABLET BY MOUTH EVERY DAY AT BEDTIME 12/06/2016 01/22/2017 Inactive Generic For:TOPAMAX 25MG 12/06/2016 9:15:13 AM Lac-Hydrin Five 5 % lotion RxNorm: 617844 1 Gram(s) TOP daily 12/02/2016 01/30/2017 Inactive cyanocobalamin (vit B-12) 1,000 mcg/mL injection solution RxNorm: 517507 Milliliter(s) Inj 11/24/2016 11/24/2016 Inactive Ceftin 500 mg tablet RxNorm: 813001 1 Tablet(s) PO BID 201606/13/2017 Inactive Cipro 500 mg tablet RxNorm: 109681 1 Tablet(s) PO BID 201611/10/2016 Inactive Cipro 500 mg tablet RxNorm: 780151 1 Tablet(s) PO BID 201611/11/2016 Inactive cyanocobalamin (vit B-12) 1,000 mcg/mL injection solution RxNorm: 188279 1 Milliliter(s) Inj 11/07/2016 11/07/2016 Inactive hydrocodone 5 mg-acetaminophen 325 mg tablet RxNorm: 616552 1-2 Tablet(s) PO Q6 as needed for pain 11/02/2016 11/06/2016 Inactive cyanocobalamin (vit B-12) 1,000 mcg/mL injection solution RxNorm: 717824 Milliliter(s) Inj 10/24/2016 10/24/2016 Inactive levothyroxine 125 mcg tablet RxNorm: 873014 Tablet(s) 1 Tablet(s) PO daily 10/24/2016 04/21/2017 Inactive liothyronine 5 mcg tablet RxNorm: 499423 1 Tablet(s) PO BID 01/201704/12/2017 Inactive hydrocodone 5 mg-acetaminophen 325 mg tablet RxNorm: 876199 1-2 Tablet(s) PO Q6 as needed for pain 10/17/2016 10/21/2016 Inactive Keflex 500 mg capsule RxNorm: 736028 1 Capsule(s) PO TID 201610/06/2016 Inactive Keflex 500 mg capsule RxNorm: 386116 1 Capsule(s) PO TID 201610/16/2016 Inactive Please deliver to patient cyanocobalamin (vit B-12) 1,000 mcg/mL injection solution RxNorm: 932677 1 Milliliter(s) Inj 09/29/2016 09/29/2016 Inactive alprazolam 0.25 mg tablet RxNorm: 249779 1 Tablet(s) PO BID 09/201603/16/2017 Inactive Cozaar 100 mg tablet RxNorm: 089301 1 Tablet(s) PO daily 2016 No Stop Date Active metoprolol tartrate 50 mg tablet RxNorm: 847170 1/2 Tablet(s) PO BID 09/14/2016 12/12/2016 Inactive Zoloft 50 mg tablet RxNorm: 689856 Tablet(s) TAKE 1 TABLET BY MOUTH DAILY 09/14/2016 03/12/2017 Inactive Generic For:ZOLOFT 50MG liothyronine 5 mcg tablet RxNorm: 718760 1 Tablet(s) PO BID 10/23/2016 Inactive Calmoseptine 0.44 %-20.6 % topical ointment RxNorm: 011221 1 Application TOP BID and as needed to sore on buttocks 09/07/2016 No Stop Date Active cyanocobalamin (vit B-12) 1,000 mcg/mL injection solution RxNorm: 746224 Milliliter(s) Inj 08/29/2016 08/29/2016 Inactive hydrocodone 5 mg-acetaminophen 325 mg tablet RxNorm: 568775 1-2 Tablet(s) PO Q6 as needed for pain 08/29/2016 10/16/2016 Inactive levothyroxine 125 mcg tablet RxNorm: 722629 1 Tablet(s) PO daily 08/25/2016 10/23/2016 Inactive Topamax 25 mg tablet RxNorm: 197382 TAKE 1 TABLET BY MOUTH EVERY DAY AT BEDTIME 08/17/2016 12/05/2016 Inactive Generic For:TOPAMAX 25MG 08/17/2016 2:14:37 PM hydrocodone 5 mg-acetaminophen 325 mg tablet RxNorm: 413097 1-2 Tablet(s) PO Q6 as needed for pain 08/11/2016 08/28/2016 Inactive hydrocodone 5 mg-acetaminophen 325 mg tablet RxNorm: 023155 1 -2 Tablet(s) PO Q6 as needed for pain 08/11/2016 08/18/2016 Inactive hydrocodone 5 mg-acetaminophen 325 mg tablet RxNorm: 893025 1 Tablet(s) PO Q6 as needed for pain 08/05/2016 08/10/2016 Inactive cyanocobalamin (vit B-12) 1,000 mcg/mL injection solution RxNorm: 354093 Milliliter(s) Inj 08/04/2016 08/04/2016 Inactive Norvasc 10 mg tablet RxNorm: 495730 1 Tablet(s) PO daily 201607/20/2017 Inactive levothyroxine 125 mcg tablet RxNorm: 191921 1 Tablet(s) PO daily 07/21/2016 10/18/2016 Inactive alprazolam 0.25 mg tablet RxNorm: 851476 1 Tablet(s) PO QHS 07/201609/19/2016 Inactive Norvasc 5 mg tablet RxNorm: 993572 1 Tablet(s) PO daily 201607/25/2016 Inactive cyanocobalamin (vit B-12) 1,000 mcg/mL injection solution RxNorm: 235431 Milliliter(s) Inj 07/21/2016 07/21/2016 Inactive Zoloft 50 mg tablet RxNorm: 455652 Tablet(s) TAKE 1 TABLET BY MOUTH DAILY 07/21/2016 09/13/2016 Inactive Generic For:ZOLOFT 50MG cyanocobalamin (vit B-12) 1,000 mcg/mL injection solution RxNorm: 043115 1 Milliliter(s) Inj 07/05/2016 07/05/2016 Inactive cyanocobalamin (vit B-12) 1,000 mcg/mL injection solution RxNorm: 388541 1 Milliliter(s) Inj 06/22/2016 06/22/2016 Inactive cyanocobalamin (vit B-12) 1,000 mcg/mL injection solution RxNorm: 874747 Milliliter(s) Inj 06/09/2016 06/09/2016 Inactive Aricept 10 mg tablet RxNorm: 719646 1 Tablet(s) PO daily 201505/21/2017 Inactive Mobic 15 mg tablet RxNorm: 150866 1 Tablet(s) PO daily 201505/21/2017 Inactive levothyroxine 125 mcg tablet RxNorm: 444695 1 Tablet(s) PO daily 05/25/2016 07/20/2016 Inactive cyanocobalamin (vit B-12) 1,000 mcg/mL injection solution RxNorm: 312185 1 Milliliter(s) Inj 05/25/2016 05/25/2016 Inactive doxycycline hyclate 100 mg capsule RxNorm: 1762117 1 Capsule(s) PO BID 05/16/2016 05/15/2016 Inactive doxycycline hyclate 100 mg capsule RxNorm: 9261469 1 Capsule(s) PO BID 05/16/2016 05/22/2016 Inactive cyanocobalamin (vit B-12) 1,000 mcg/mL injection solution RxNorm: 934296 Milliliter(s) Inj 05/10/2016 05/10/2016 Inactive cyanocobalamin (vit B-12) 1,000 mcg/mL injection solution RxNorm: 631229 Milliliter(s) Inj 04/26/2016 04/26/2016 Inactive Topamax 25 mg tablet RxNorm: 557908 1 Tablet(s) PO QPM 201508/16/2016 Inactive cyanocobalamin (vit B-12) 1,000 mcg/mL injection solution RxNorm: 030667 Milliliter(s) 1 Milliliter(s) Inj [id number] 04/11/2016 12/31/2017 Active liothyronine 5 mcg tablet RxNorm: 434297 1 Tablet(s) PO BID 09/13/2016 Inactive cyanocobalamin (vit B-12) 1,000 mcg/mL injection solution RxNorm: 566362 Milliliter(s) Inj 04/11/2016 04/11/2016 Inactive cyanocobalamin (vit B-12) 1,000 mcg/mL injection solution RxNorm: 237457 Milliliter(s) Inj 03/31/2016 03/31/2016 Inactive cyanocobalamin (vit B-12) 1,000 mcg/mL injection solution RxNorm: 086004 1 Milliliter(s) Inj 03/15/2016 03/15/2016 Inactive levothyroxine 125 mcg tablet RxNorm: 442415 1 Tablet(s) PO daily 2016 03/03/2016 Inactive levothyroxine 125 mcg tablet RxNorm: 810758 1 Tablet(s) PO daily 2016 05/24/2016 Inactive cyanocobalamin (vit B-12) 1,000 mcg/mL injection solution RxNorm: 096732 Milliliter(s) Inj 02/25/2016 02/25/2016 Inactive cyanocobalamin (vit B-12) 1,000 mcg/mL injection solution RxNorm: 238955 1 Milliliter(s) Inj 02/02/2016 02/02/2016 Inactive sucralfate 1 gram tablet RxNorm: 112133 1 Tablet(s) PO QHS 01/2016 No Stop Date Active amiodarone 200 mg tablet RxNorm: 324466 1/2 Tablet(s) PO BID 05/21/2017 Inactive cyanocobalamin (vit B-12) 1,000 mcg/mL injection solution RxNorm: 208118 Milliliter(s) Inj 01/18/2016 01/18/2016 Inactive cyanocobalamin (vit B-12) 1,000 mcg/mL injection solution RxNorm: 921520 Milliliter(s) Inj 12/29/2015 12/29/2015 Inactive Topamax 25 mg tablet RxNorm: 833993 1 Tablet(s) PO QPM 201504/05/2016 Inactive cyanocobalamin (vit B-12) 1,000 mcg/mL injection solution RxNorm: 358625 Milliliter(s) Inj 12/08/2015 12/08/2015 Inactive Bactrim DS 800 mg-160 mg tablet RxNorm: 222875 1 Tablet(s) PO BID 11/23/2015 11/22/2015 Inactive cyanocobalamin (vit B-12) 1,000 mcg/mL injection solution RxNorm: 973889 Milliliter(s) Inj 11/23/2015 11/23/2015 Inactive Bactrim DS 800 mg-160 mg tablet RxNorm: 272756 1 Tablet(s) PO BID 11/23/2015 11/29/2015 Inactive cyanocobalamin (vit B-12) 1,000 mcg/mL injection solution RxNorm: 614786 Milliliter(s) Inj 11/11/2015 11/11/2015 Inactive amoxicillin 500 mg capsule RxNorm: 044862 1 Capsule(s) PO TID 11/10/2015 11/19/2015 Inactive Zithromax Z-Henrique 250 mg tablet RxNorm: 600160 1 Tablet(s) PO UD 11/10/2015 01/24/2016 Inactive zpack x 1 amoxicillin 500 mg capsule RxNorm: 014161 1 Capsule(s) PO TID 11/10/2015 11/09/2015 Inactive cyanocobalamin (vit B-12) 1,000 mcg/mL injection solution RxNorm: 371846 1 Milliliter(s) Inj 10/29/2015 10/29/2015 Inactive [place] 3 capsule RxNorm : 1 Capsule(s) PO QAM , 2 Capsules at noon, 1 Capsule QHS 10/13/2015 No Stop Date Active potassium chloride ER 20 mEq tablet,extended release RxNorm: 998765 2 Tablet(s) PO daily at noon 10/13/2015 No Stop Date Active alprazolam 0.25 mg tablet RxNorm: 026254 1 Tablet(s) PO QHS 07/20/2016 Inactive amiodarone 200 mg tablet RxNorm: 938634 1 Tablet(s) PO BID 01/24/2016 Inactive cyanocobalamin (vit B-12) 1,000 mcg/mL injection solution RxNorm: 289306 1 Milliliter(s) Inj 10/12/2015 10/12/2015 Inactive Zofran 4 mg tablet RxNorm: 112697 1 Tablet(s) PO daily as needed 10/07/2015 05/24/2016 Inactive Zoloft 50 mg tablet RxNorm: 454768 TAKE 1 TABLET BY MOUTH DAILY 10/05/2015 05/01/2016 Inactive Generic For:ZOLOFT 50MG cyanocobalamin (vit B-12) 1,000 mcg/mL injection solution RxNorm: 969326 1 Milliliter(s) Inj 09/29/2015 09/29/2015 Inactive cyanocobalamin (vit B-12) 1,000 mcg/mL injection solution RxNorm: 465072 1 Milliliter(s) Inj 09/17/2015 09/17/2015 Inactive Norvasc 5 mg tablet RxNorm: 581933 1 Tablet(s) PO daily 201507/20/2016 Inactive liothyronine 5 mcg tablet RxNorm: 344466 1 Tablet(s) PO BID 03/14/2016 Inactive Zoloft 50 mg tablet RxNorm: 059054 1 Tablet(s) PO daily 201510/04/2015 Inactive buspirone 15 mg tablet RxNorm: 934958 1 Tablet(s) PO BID 201509/10/2016 Inactive buspirone 15 mg tablet RxNorm: 603054 1 Tablet(s) PO BID 201509/16/2015 Inactive Topamax 25 mg tablet RxNorm: 495832 1 Tablet(s) PO QPM 201512/07/2015 Inactive cyanocobalamin (vit B-12) 1,000 mcg/mL injection solution RxNorm: 438538 1 Milliliter(s) Inj 09/03/2015 09/03/2015 Inactive cyanocobalamin (vit B-12) 1,000 mcg/mL injection solution RxNorm: 913666 Milliliter(s) Inj 08/17/2015 08/17/2015 Inactive cyanocobalamin (vit B-12) 1,000 mcg/mL injection solution RxNorm: 054251 Milliliter(s) Inj 08/06/2015 08/06/2015 Inactive levothyroxine 150 mcg tablet RxNorm: 188192 1 Tablet(s) PO daily 07/22/2015 03/03/2016 Inactive Aricept 10 mg tablet RxNorm: 623854 1 Tablet(s) PO daily 201505/26/2016 Inactive Mobic 15 mg tablet RxNorm: 446841 1 Tablet(s) PO daily 201505/26/2016 Inactive cyanocobalamin (vit B-12) 1,000 mcg/mL injection solution RxNorm: 361268 Milliliter(s) Inj 07/22/2015 07/22/2015 Inactive liothyronine 5 mcg tablet RxNorm: 586028 1 Tablet(s) PO BID 08/201509/16/2015 Inactive cyanocobalamin (vit B-12) 1,000 mcg/mL injection solution RxNorm: 767054 Milliliter(s) Inj 07/08/2015 07/08/2015 Inactive cyanocobalamin (vit B-12) 1,000 mcg/mL injection solution RxNorm: 270951 Milliliter(s) Inj 06/23/2015 06/23/2015 Inactive cyanocobalamin (vit B-12) 1,000 mcg/mL injection solution RxNorm: 051171 1 Milliliter(s) Inj 06/08/2015 06/08/2015 Inactive cyanocobalamin (vit B-12) 1,000 mcg/mL injection solution RxNorm: 415248 Milliliter(s) Inj 05/27/2015 05/27/2015 Inactive Aricept 10 mg tablet RxNorm: 057368 1 Tablet(s) PO daily 201407/21/2015 Inactive Zofran 4 mg tablet RxNorm: 992699 1 Tablet(s) PO daily as needed 05/20/2015 06/18/2015 Inactive alprazolam 0.25 mg tablet RxNorm: 206992 1 Tablet(s) PO BID 07/201410/12/2015 Inactive Mobic 15 mg tablet RxNorm: 911297 1 Tablet(s) PO daily 201407/21/2015 Inactive tramadol ER 100 mg tablet,extended release 24 hr RxNorm: 144715 1 Tablet(s) PO Q6 as needed 05/13/2015 No Stop Date Active cyanocobalamin (vit B-12) 1,000 mcg/mL injection solution RxNorm: 823365 1 Milliliter(s) Inj 05/12/2015 05/12/2015 Inactive Topamax 25 mg tablet RxNorm: 082255 1 Tablet(s) PO BID (start at one pill at bedtime x 1week then twice daily thereafter) 05/12/2015 09/02/2015 Inactive cyanocobalamin (vit B-12) 1,000 mcg/mL injection kit RxNorm: 385872 kit Inj 04/30/2015 04/30/2015 Inactive cyanocobalamin (vit B-12) 1,000 mcg/mL injection solution RxNorm: 633801 Milliliter(s) Inj 04/16/2015 04/16/2015 Inactive levothyroxine 150 mcg tablet RxNorm: 166425 1 Tablet(s) PO daily 04/08/2015 07/21/2015 Inactive cyanocobalamin (vit B-12) 1,000 mcg/mL injection solution RxNorm: 977617 Milliliter(s) 1 Milliliter(s) Inj [id number] 04/08/2015 04/10/2016 Inactive Cytomel 5 mcg tablet RxNorm: 272831 1 Tablet(s) PO BID 201410/12/2015 Inactive Cytomel 5 mcg tablet RxNorm: 719864 1 Tablet(s) PO BID 201404/07/2015 Inactive Cytomel 5 mcg tablet RxNorm: 101169 1 Tablet(s) PO BID 201404/06/2015 Inactive cyanocobalamin (vit B-12) 1,000 mcg/mL injection solution RxNorm: 563296 Milliliter(s) Inj 04/02/2015 04/02/2015 Inactive cyanocobalamin (vit B-12) 1,000 mcg/mL injection solution RxNorm: 655124 Milliliter(s) Inj 03/18/2015 03/18/2015 Inactive cyanocobalamin (vit B-12) 1,000 mcg/mL injection solution RxNorm: 289971 Milliliter(s) 1 Milliliter(s) Inj [id number] 03/18/2015 04/07/2015 Inactive cyanocobalamin (vit B-12) 1,000 mcg/mL injection solution RxNorm: 505047 1 Milliliter(s) Inj [id number] 03/16/201503/17 Inactive cyanocobalamin (vit B-12) 1,000 mcg/mL injection solution RxNorm: 699830 Milliliter(s) Inj 03/03/2015 03/03/2015 Inactive cyanocobalamin (vit B-12) 1,000 mcg/mL injection solution RxNorm: 865939 Milliliter(s) Inj 02/18/2015 02/18/2015 Inactive cyanocobalamin (vit B-12) 1,000 mcg/mL injection solution RxNorm: 193834 Milliliter(s) Inj 02/04/2015 02/04/2015 Inactive cyanocobalamin (vit B-12) 1,000 mcg/mL injection solution RxNorm: 479476 Milliliter(s) Inj 01/22/2015 01/22/2015 Inactive Lac-Hydrin Five 5 % lotion RxNorm: 612997 1 TOP daily 201403/13/2015 Inactive Lac-Hydrin Five 5 % lotion RxNorm: 347603 1 TOP daily 201401/12/2015 Inactive cyanocobalamin (vit B-12) 1,000 mcg/mL injection solution RxNorm: 271647 Milliliter(s) Inj 01/08/2015 01/08/2015 Inactive cyanocobalamin (vit B-12) 1,000 mcg/mL injection solution RxNorm: 390710 Milliliter(s) Inj 12/25/2014 12/25/2014 Inactive levothyroxine 150 mcg tablet RxNorm: 760578 1 Tablet(s) PO daily 12/24/2014 04/07/2015 Inactive tramadol 50 mg tablet RxNorm: 137265 1-2 Tablet(s) PO Q6 as needed 12/17/2014 05/12/2015 Inactive alprazolam 0.25 mg tablet RxNorm: 851760 1 Tablet(s) PO BID 06/201404/15/2015 Inactive Pradaxa 150 mg capsule RxNorm: 3073924 1 Capsule(s) PO BID No Stop Date Active metoprolol tartrate 50 mg tablet RxNorm: 700251 1/2 Tablet(s) PO BID 12/16/2014 09/13/2016 Inactive buspirone 15 mg tablet RxNorm: 015295 1 Tablet(s) PO BID 201409/13/2015 Inactive cyanocobalamin (vit B-12) 1,000 mcg/mL injection solution RxNorm: 601229 1 Milliliter(s) Inj [id number] 12/16/201403/15 Inactive cyanocobalamin (vit B-12) 1,000 mcg/mL injection solution RxNorm: 540685 1 Milliliter(s) Inj [id number] 12/16/201412/15 Inactive sucralfate 1 gram tablet RxNorm: 962235 Tablet(s) PO QID 201412/10/2015 Inactive cyanocobalamin (vit B-12) 1,000 mcg/mL injection solution RxNorm: 833966 Milliliter(s) Inj 12/10/2014 12/10/2014 Inactive cyanocobalamin (vit B-12) 1,000 mcg/mL injection solution RxNorm: 441920 Milliliter(s) Inj 11/26/2014 11/26/2014 Inactive Zoloft 50 mg tablet RxNorm: 599642 1 Tablet(s) PO daily 201406/21/2015 Inactive Zoloft 50 mg tablet RxNorm: 638859 1 Tablet(s) PO daily 201411/23/2014 Inactive cyanocobalamin (vit B-12) 1,000 mcg/mL injection kit RxNorm: 433759 Milliliter(s) Inj 11/12/2014 11/12/2014 Inactive cyanocobalamin (vit B-12) 1,000 mcg/mL injection solution RxNorm: 269234 Milliliter(s) Inj 10/28/2014 10/28/2014 Inactive [SAVINGS FOR NON-COVERED DRUGS -- BIN:[id number], PCN: [id number], Group: [id number], ID# [id number], Questions: [phone]. THIS IS NOT INSURANCE.] promethazine oral RxNorm: 8745 oral No Start Date Active digoxin 125 mcg tablet RxNorm: 323124 Tablet(s) PO every other day No Start Date Active furosemide 40 mg tablet RxNorm: 610556 1 Tablet(s) PO daily No Start Date Active Vitamin D3 5,000 unit tablet RxNorm: 222416 1 Tablet(s) PO daily No Start Date Active erythromycin 250 mg capsule,delayed release RxNorm: 254295 1 Capsule(s) PO AC No Start Date Active Protonix 40 mg tablet,delayed release RxNorm: 904030 1 Tablet(s) PO BID No Start Date Active Cozaar 100 mg tablet RxNorm: 685928 1 Tablet(s) PO daily No Start Date 09/13/2016 Inactive sucralfate 1 gram tablet RxNorm: 813094 Tablet(s) PO QID No Start Date 12/15/2014 Inactive amiodarone 200 mg tablet RxNorm: 661816 2 Tablet(s) PO daily No Start Date 10/13/2015 Inactive buspirone 15 mg tablet RxNorm: 279252 1 Tablet(s) PO daily No Start Date 12/15/2014 Inactive potassium chloride ER 20 mEq tablet,extended release RxNorm: 254760 1 Tablet(s) PO daily No Start Date 10/12/2015 Inactive Prilosec 40 mg capsule,delayed release RxNorm: 051172 1 Capsule(s) PO daily No Start Date 09/02/2015 Inactive [place] 3 capsule RxNorm : Capsule(s) PO No Start Date 10/12/2015 Inactive alprazolam 0.25 mg tablet RxNorm: 333962 Tablet(s) PO QHS No Start Date 12/16/2014 Inactive levothyroxine 125 mcg tablet RxNorm: 025211 1 Tablet(s) PO daily No Start Date 12/23/2014 Inactive liothyronine 5 mcg tablet RxNorm: 271190 1 Tablet(s) PO BID No Start Date 07/21/2015 Inactive Mobic 15 mg tablet RxNorm: 677196 Tablet(s) PO daily No Start Date 05/19/2015 Inactive Norvasc 5 mg tablet RxNorm: 441435 1 Tablet(s) PO daily No Start Date 09/16/2015 Inactive Zofran 4 mg tablet RxNorm: 686765 1 Tablet(s) PO daily as needed No Start Date 05/19/2015 Inactive Tamiflu 75 mg capsule RxNorm: 277498 1 Capsule(s) PO BID No Start Date 07/23/2017 Inactive tramadol 50 mg tablet RxNorm: 321309 1 Tablet(s) PO daily as needed No Start Date 12/16/2014 Inactive amiodarone 200 mg tablet RxNorm: 725987 1 Tablet(s) PO daily No Start Date 10/12/2015 Inactive Zofran ODT 4 mg disintegrating tablet RxNorm: 434037 1 Tablet(s) PO TID as needed No Start Date 05/02/2017 Inactive meclizine 25 mg tablet RxNorm: 783611 Tablet(s) PO as needed No Start Date 05/24/2016 Inactive Pradaxa 150 mg capsule RxNorm: 6637831 1 Capsule(s) PO daily No Start Date 12/15/2014 Inactive metoprolol tartrate 50 mg tablet RxNorm: 612284 1/2 Tablet(s) PO No Start Date 12/15/2014 Inactive Aricept 10 mg tablet RxNorm: 842118 Tablet(s) PO daily No Start Date 05/19/2015 Inactive Calmoseptine 0.44 %-20.6 % topical ointment RxNorm: 957100 1 Application TOP BID and as needed to sore on buttocks No Start Date 09/06/2016 Inactive Zithromax Z-Henrique 250 mg tablet RxNorm: 684129 1 Tablet(s) PO UD No Start Date 11/09/2015 Inactive zpack x 1 Medication Administered Medication Codes Instructions Start Date Status cyanocobalamin (vit B-12) 1,000 mcg/mL injection solution RxNorm: 595704 Milliliter 07/06/2017 No longer Active Kenalog 40 mg/mL suspension for injection RxNorm: 3914338 1Milliliter 06/20/2017 No longer Active cyanocobalamin (vit B-12) 1,000 mcg/mL injection solution RxNorm: 643769 Milliliter 06/20/2017 No longer Active cyanocobalamin (vit B-12) 1,000 mcg/mL injection solution RxNorm: 451864 Milliliter 06/05/2017 No longer Active cyanocobalamin (vit B-12) 1,000 mcg/mL injection solution RxNorm: 296239 Milliliter 05/25/2017 No longer Active cyanocobalamin (vit B-12) 1,000 mcg/mL injection solution RxNorm: 380491 Milliliter 05/16/2017 No longer Active cyanocobalamin (vit B-12) 1,000 mcg/mL injection solution RxNorm: 180929 1Milliliter 05/01/2017 No longer Active cyanocobalamin (vit B-12) 1,000 mcg/mL injection solution RxNorm: 328341 Milliliter 04/18/2017 No longer Active cyanocobalamin (vit B-12) 1,000 mcg/mL injection solution RxNorm: 108953 Milliliter 04/06/2017 No longer Active cyanocobalamin (vit B-12) 1,000 mcg/mL injection solution RxNorm: 497424 Milliliter 03/22/2017 No longer Active cyanocobalamin (vit B-12) 1,000 mcg/mL injection solution RxNorm: 430225 Milliliter 03/09/2017 No longer Active cyanocobalamin (vit B-12) 1,000 mcg/mL injection solution RxNorm: 194204 Milliliter 02/23/2017 No longer Active cyanocobalamin (vit B-12) 1,000 mcg/mL injection solution RxNorm: 014438 Milliliter 02/09/2017 No longer Active cyanocobalamin (vit B-12) 1,000 mcg/mL injection solution RxNorm: 695334 Milliliter 01/23/2017 No longer Active cyanocobalamin (vit B-12) 1,000 mcg/mL injection solution RxNorm: 699817 Milliliter 01/10/2017 No longer Active cyanocobalamin (vit B-12) 1,000 mcg/mL injection solution RxNorm: 466130 1Milliliter 12/28/2016 No longer Active cyanocobalamin (vit B-12) 1,000 mcg/mL injection solution RxNorm: 396148 Milliliter 12/14/2016 No longer Active cyanocobalamin (vit B-12) 1,000 mcg/mL injection solution RxNorm: 086827 Milliliter 11/24/2016 No longer Active cyanocobalamin (vit B-12) 1,000 mcg/mL injection solution RxNorm: 230646 1Milliliter 11/07/2016 No longer Active cyanocobalamin (vit B-12) 1,000 mcg/mL injection solution RxNorm: 437341 Milliliter 10/24/2016 No longer Active cyanocobalamin (vit B-12) 1,000 mcg/mL injection solution RxNorm: 806576 1Milliliter 09/29/2016 No longer Active cyanocobalamin (vit B-12) 1,000 mcg/mL injection solution RxNorm: 412726 Milliliter 08/29/2016 No longer Active cyanocobalamin (vit B-12) 1,000 mcg/mL injection solution RxNorm: 696334 Milliliter 08/04/2016 No longer Active cyanocobalamin (vit B-12) 1,000 mcg/mL injection solution RxNorm: 912685 Milliliter 07/21/2016 No longer Active cyanocobalamin (vit B-12) 1,000 mcg/mL injection solution RxNorm: 424781 1Milliliter 07/05/2016 No longer Active cyanocobalamin (vit B-12) 1,000 mcg/mL injection solution RxNorm: 471322 1Milliliter 06/22/2016 No longer Active cyanocobalamin (vit B-12) 1,000 mcg/mL injection solution RxNorm: 437608 Milliliter 06/09/2016 No longer Active cyanocobalamin (vit B-12) 1,000 mcg/mL injection solution RxNorm: 519654 1Milliliter 05/25/2016 No longer Active cyanocobalamin (vit B-12) 1,000 mcg/mL injection solution RxNorm: 297549 Milliliter 05/10/2016 No longer Active cyanocobalamin (vit B-12) 1,000 mcg/mL injection solution RxNorm: 824588 Milliliter 04/26/2016 No longer Active cyanocobalamin (vit B-12) 1,000 mcg/mL injection solution RxNorm: 834096 Milliliter 04/11/2016 No longer Active cyanocobalamin (vit B-12) 1,000 mcg/mL injection solution RxNorm: 400402 Milliliter 03/31/2016 No longer Active cyanocobalamin (vit B-12) 1,000 mcg/mL injection solution RxNorm: 323384 1Milliliter 03/15/2016 No longer Active cyanocobalamin (vit B-12) 1,000 mcg/mL injection solution RxNorm: 105752 Milliliter 02/25/2016 No longer Active cyanocobalamin (vit B-12) 1,000 mcg/mL injection solution RxNorm: 080403 1Milliliter 02/02/2016 No longer Active cyanocobalamin (vit B-12) 1,000 mcg/mL injection solution RxNorm: 059820 Milliliter 01/18/2016 No longer Active cyanocobalamin (vit B-12) 1,000 mcg/mL injection solution RxNorm: 399413 Milliliter 12/29/2015 No longer Active cyanocobalamin (vit B-12) 1,000 mcg/mL injection solution RxNorm: 898311 Milliliter 12/08/2015 No longer Active cyanocobalamin (vit B-12) 1,000 mcg/mL injection solution RxNorm: 718723 Milliliter 11/23/2015 No longer Active cyanocobalamin (vit B-12) 1,000 mcg/mL injection solution RxNorm: 439338 Milliliter 11/11/2015 No longer Active cyanocobalamin (vit B-12) 1,000 mcg/mL injection solution RxNorm: 937051 1Milliliter 10/29/2015 No longer Active cyanocobalamin (vit B-12) 1,000 mcg/mL injection solution RxNorm: 031908 1Milliliter 10/12/2015 No longer Active cyanocobalamin (vit B-12) 1,000 mcg/mL injection solution RxNorm: 515105 1Milliliter 09/29/2015 No longer Active cyanocobalamin (vit B-12) 1,000 mcg/mL injection solution RxNorm: 269654 1Milliliter 09/17/2015 No longer Active cyanocobalamin (vit B-12) 1,000 mcg/mL injection solution RxNorm: 797631 1Milliliter 09/03/2015 No longer Active cyanocobalamin (vit B-12) 1,000 mcg/mL injection solution RxNorm: 160722 Milliliter 08/17/2015 No longer Active cyanocobalamin (vit B-12) 1,000 mcg/mL injection solution RxNorm: 574585 Milliliter 08/06/2015 No longer Active cyanocobalamin (vit B-12) 1,000 mcg/mL injection solution RxNorm: 827039 Milliliter 07/22/2015 No longer Active cyanocobalamin (vit B-12) 1,000 mcg/mL injection solution RxNorm: 985143 Milliliter 07/08/2015 No longer Active cyanocobalamin (vit B-12) 1,000 mcg/mL injection solution RxNorm: 981821 Milliliter 06/23/2015 No longer Active cyanocobalamin (vit B-12) 1,000 mcg/mL injection solution RxNorm: 869541 1Milliliter 06/08/2015 No longer Active cyanocobalamin (vit B-12) 1,000 mcg/mL injection solution RxNorm: 895671 Milliliter 05/27/2015 No longer Active cyanocobalamin (vit B-12) 1,000 mcg/mL injection solution RxNorm: 706848 1Milliliter 05/12/2015 No longer Active cyanocobalamin (vit B-12) 1,000 mcg/mL injection kit RxNorm : 719211 kit 04/30/2015 No longer Active cyanocobalamin (vit B-12) 1,000 mcg/mL injection solution RxNorm: 108832 Milliliter 04/16/2015 No longer Active cyanocobalamin (vit B-12) 1,000 mcg/mL injection solution RxNorm: 348124 Milliliter 04/02/2015 No longer Active cyanocobalamin (vit B-12) 1,000 mcg/mL injection solution RxNorm: 839963 Milliliter 03/18/2015 No longer Active cyanocobalamin (vit B-12) 1,000 mcg/mL injection solution RxNorm: 714902 Milliliter 03/03/2015 No longer Active cyanocobalamin (vit B-12) 1,000 mcg/mL injection solution RxNorm: 050302 Milliliter 02/18/2015 No longer Active cyanocobalamin (vit B-12) 1,000 mcg/mL injection solution RxNorm: 074400 Milliliter 02/04/2015 No longer Active cyanocobalamin (vit B-12) 1,000 mcg/mL injection solution RxNorm: 359360 Milliliter 01/22/2015 No longer Active cyanocobalamin (vit B-12) 1,000 mcg/mL injection solution RxNorm: 206338 Milliliter 01/08/2015 No longer Active cyanocobalamin (vit B-12) 1,000 mcg/mL injection solution RxNorm: 254317 Milliliter 12/25/2014 No longer Active cyanocobalamin (vit B-12) 1,000 mcg/mL injection solution RxNorm: 047081 Milliliter 12/10/2014 No longer Active cyanocobalamin (vit B-12) 1,000 mcg/mL injection solution RxNorm: 743642 Milliliter 11/26/2014 No longer Active cyanocobalamin (vit B-12) 1,000 mcg/mL injection kit RxNorm : 245485 Milliliter 11/12/2014 No longer Active cyanocobalamin (vit B-12) 1,000 mcg/mL injection solution RxNorm: 371676 Milliliter 10/28/2014 No longer Active Immunizations Vaccine [...] 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 ICD-9: 266.2 07/06/2017 Acute laryngopharyngitis ICD-10: J06.0 ICD-9: 465.0 06/20/2017 Other allergic rhinitis ICD-10: J30.89 ICD-9: 477.8 06/20/2017 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 ICD-9: 281.1 06/20/2017 Encounter for general adult medical examination with abnormal findings ICD-10: Z00.01 ICD-9: V70.0 06/05/2017 Chronic atrial fibrillation ICD-10: I48.2 ICD-9: 427.31 05/25/2017 Essential (primary) hypertension ICD-10: I10 ICD-9: 401.9 05/25/2017 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 ICD-9: 281.0 05/25/2017 Vitamin B12 deficiency anemia, unspecified ICD-10: D51.9 ICD-9: 281.1 05/16/2017 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 ICD-9: [...] [common cold] ICD-10: J00 ICD-9: 460 11/11/2015 Chronic fatigue, unspecified ICD-10: R53.82 ICD-9: [...] Hospital Follow Up 07/06/2017 Pneumonia, fluid overload cough 06/20/2017 Annual Medicare Wellness Exam 06/05/2017 hypertension 05/25/2017 [...] Item Item Code Result Date Comp Metabolic Mgx527 NA 141 mEq/L 01/23/2017 Comp Metabolic Iet205 K 4.5 mEq/L 01/23/2017 Comp Metabolic Qzs192 CL 107 mEq/L 01/23/2017 Comp Metabolic Uit555 CO2 21.0 mEq/L 01/23/2017 Comp Metabolic Mwd869 ANION GAP 18 01/23/2017 Comp Metabolic Kvk426 GLUCOSE 138 mg/dL 01/23/2017 Comp Metabolic Lwp586 Creat 1.0 mg/dL 01/23/2017 Comp Metabolic Cdt348 eGFR 56 ml/min/1.73m2 01/23/2017 Comp Metabolic Mwo404 BUN 26 mg/dL 01/23/2017 Comp Metabolic Rcc990 B/C Ratio 25.7 Ratio 01/23/2017 Comp Metabolic Abd208 CALCIUM 9.0 mg/dL 01/23/2017 Comp Metabolic Mbg007 ALK PHOS 37 U/L 01/23/2017 Comp Metabolic Ivc092 AST(SGOT) 20 U/L 01/23/2017 Comp Metabolic Yga369 ALT(SGPT) 25 U/L 01/23/2017 Comp Metabolic Inm890 BILI T 0.9 mg/dL 01/23/2017 Comp Metabolic Zej414 ALBUMIN 3.8 g/dL 01/23/2017 Comp Metabolic Oly205 TPRO 6.5 g/dL 01/23/2017 Comp Metabolic Vri071 GLOB 2.7 g/dL 01/23/2017 Comp Metabolic Xbv137 A/G Ratio 1.4 Ratio 01/23/2017 Comp Metabolic Hwp510 Osmo 288 mOsmo 01/23/2017 %Hba1C Dcq218 % HbA1c 10768-9 6.1 % 01/23/2017 %Hba1C Udb839 Gluc Ave 128 mg/dL 01/23/2017 Tsh Ord6 hTSH II 1.68 uIU/mL 01/23/2017 Free T4 Soq135 FREE T4 1.05 ng/dL 01/23/2017 Culture Urine [id number] URINE CULTURE SEE NOTES 11/10/2016 Culture Urine [id number] Continued Results 11/10/2016 Urine Culture Ucult Complete [...] 09/29/2016 Metabolic Ord15 CALCIUM 9.3 mg/dL 09/29/2016 Cbc With Differential Ord2 WBC 6.40 K/ul 09/07/2016 Cbc With Differential Ord2 RBC 4.70 M/ul 09/07/2016 Cbc With Differential Ord2 HGB 14.1 g/dl 09/07/2016 Cbc With Differential Ord2 Neut% 60.3 % 09/07/2016 Cbc With Differential Ord2 HCT 43.1 % 09/07/2016 Cbc With Differential Ord2 Lymph% 27.3 % 09/07/2016 Cbc With Differential Ord2 MCV 91.7 fl 09/07/2016 Cbc With Differential Ord2 [place]% 9.8 % 09/07/2016 Cbc With Differential Ord2 [...] 1.75 K/ul 09/07/2016 Cbc With Differential Ord2 [place] ABS# 0.6 K/ul 09/07/2016 Cbc With Differential Ord2 Eos ABS# 0.1 K/ul 09/07/2016 Cbc With Differential Ord2 Baso ABS# 0.0 K/ul 09/07/2016 Tsh Ord6 hTSH II 1.41 uIU/mL 09/07/2016 Free T4 Naw393 FREE T4 0.99 ng/dL 09/07/2016 Culture Urine [id number] URINE CULTURE SEE NOTES 06/27/2016 Hepatic Kyi474 ALBUMIN 4.2 g/dL 06/22/2016 Hepatic Mvo521 TPRO 7.0 g/dL 06/22/2016 Hepatic Kdw569 GLOB 2.8 g/dL 06/22/2016 Hepatic Mrb262 A/G Ratio 1.5 Ratio 06/22/2016 Hepatic Qpc412 ALK PHOS 54 U/L 06/22/2016 Hepatic Hhf984 ALT(SGPT) 30 U/L 06/22/2016 Hepatic Wxx525 AST(SGOT) 24 U/L 06/22/2016 Hepatic Vlo402 BILI T 1.1 mg/dL 06/22/2016 Hepatic Prw965 BILI D 0.2 mg/dL 06/22/2016 Hepatic Igy423 BILI I 0.9 mg/dL 06/22/2016 Lipid Ord30 CHOL 196 mg/dL 06/22/2016 Lipid Ord30 HDL 63.0 mg/dl 06/22/2016 Lipid Ord30 TRIG 154 mg/dL 06/22/2016 Lipid Ord30 LDL 102 mg/dL 06/22/2016 Lipid Ord30 C/HDL 3.1 Ratio 06/22/2016 Tsh Ord6 hTSH II 1.26 uIU/mL 06/14/2016 Free T4 Erg417 FREE T4 1.09 ng/dL 06/14/2016 Comp Metabolic Ddr556 NA 139 mEq/L 06/14/2016 Comp Metabolic Rbw742 K 4.6 mEq/L 06/14/2016 Comp Metabolic Qhy183 CL 108 mEq/L 06/14/2016 Comp Metabolic Wvh754 CO2 22.0 mEq/L 06/14/2016 Comp Metabolic Gjf210 ANION GAP 14 06/14/2016 Comp Metabolic Drf976 GLUCOSE 114 mg/dL 06/14/2016 Comp Metabolic Qze477 Creat 1.2 mg/dL 06/14/2016 Comp Metabolic Ody103 eGFR 48 ml/min/1.73m2 06/14/2016 Comp Metabolic Xot309 BUN 24 mg/dL 06/14/2016 Comp Metabolic Xst926 B/C Ratio 20.9 Ratio 06/14/2016 Comp Metabolic Snr536 CALCIUM 9.9 mg/dL 06/14/2016 Comp Metabolic Jse710 ALK PHOS 47 U/L 06/14/2016 Comp Metabolic Ybn118 AST(SGOT) 28 U/L 06/14/2016 Comp Metabolic Xyl092 ALT(SGPT) 32 U/L 06/14/2016 Comp Metabolic Tfr297 BILI T 0.9 mg/dL 06/14/2016 Comp Metabolic Zps499 ALBUMIN 4.1 g/dL 06/14/2016 Comp Metabolic Txm869 TPRO 6.9 g/dL 06/14/2016 Comp Metabolic Hwv137 GLOB 2.8 g/dL 06/14/2016 Comp Metabolic Ahh755 A/G Ratio 1.5 Ratio 06/14/2016 Comp Metabolic Epk091 Osmo 282 mOsmo 06/14/2016 Digoxin Ord9 DIGOXIN 0.7 NG/ML 02/02/2016 Hepatic Nif977 ALBUMIN 4.0 g/dL 02/02/2016 Hepatic Slk324 TPRO 7.0 g/dL 02/02/2016 Hepatic Wrw386 GLOB 3.0 g/dL 02/02/2016 Hepatic Efx751 A/G Ratio 1.3 Ratio 02/02/2016 Hepatic Jxw818 ALK PHOS 57 U/L 02/02/2016 Hepatic Pyl264 ALT(SGPT) 62 U/L 02/02/2016 Hepatic Zec631 AST(SGOT) 54 U/L 02/02/2016 Hepatic Uan837 BILI T 0.8 mg/dL 02/02/2016 Hepatic Ndu609 BILI D 0.2 mg/dL 02/02/2016 Hepatic Tjx614 BILI I 0.6 mg/dL 02/02/2016 Free T4 Yho019 FREE T4 1.23 ng/dL 02/02/2016 Tsh Ord6 hTSH II 0.28 uIU/mL 02/02/2016 Urine Culture Ucult Preliminary No Growth Day 1 11/25/2015 Urine Culture Ucult Complete No Growth Day 2 11/25/2015 Hepatic Afn969 ALBUMIN 3.9 g/dL 11/11/2015 Hepatic Bui181 TPRO 7.0 g/dL 11/11/2015 Hepatic Sex190 GLOB 3.1 g/dL 11/11/2015 Hepatic Hzi220 A/G Ratio 1.3 Ratio 11/11/2015 Hepatic Kld806 ALK PHOS 63 U/L 11/11/2015 Hepatic Uge443 ALT(SGPT) 107 U/L 11/11/2015 Hepatic Dcz098 AST(SGOT) 101 U/L 11/11/2015 Hepatic Kix702 BILI T 0.6 mg/dL 11/11/2015 Hepatic Whk087 BILI D 0.1 mg/dL 11/11/2015 Hepatic Pnj229 BILI I 0.5 mg/dL 11/11/2015 Comp Metabolic Nnk734 NA 138 mEq/L 10/29/2015 Comp Metabolic Dot629 K 5.0 mEq/L 10/29/2015 Comp Metabolic Zjr458 CL 105 mEq/L 10/29/2015 Comp Metabolic Ngl660 CO2 23.0 mEq/L 10/29/2015 Comp Metabolic Scy548 ANION GAP 15 10/29/2015 Comp Metabolic Zgo728 GLUCOSE 105 mg/dL 10/29/2015 Comp Metabolic Sbg799 Creat 1.0 mg/dL 10/29/2015 Comp Metabolic Qzw547 eGFR 55 ml/min/1.73m2 10/29/2015 Comp Metabolic Gdm174 BUN 20 mg/dL 10/29/2015 Comp Metabolic Szn299 B/C Ratio 19.4 Ratio 10/29/2015 Comp Metabolic Llg015 CALCIUM 8.8 mg/dL 10/29/2015 Comp Metabolic Ymv443 ALK PHOS 56 U/L 10/29/2015 Comp Metabolic Qgu105 AST(SGOT) 66 U/L 10/29/2015 Comp Metabolic Epc563 ALT(SGPT) 78 U/L 10/29/2015 Comp Metabolic Kwx841 BILI T 0.7 mg/dL 10/29/2015 Comp Metabolic Xir225 ALBUMIN 3.6 g/dL 10/29/2015 Comp Metabolic Doy238 TPRO 6.6 g/dL 10/29/2015 Comp Metabolic Twz488 GLOB 3.0 g/dL 10/29/2015 Comp Metabolic Jza873 A/G Ratio 1.2 Ratio 10/29/2015 Comp Metabolic Mmq432 Osmo 279 mOsmo 10/29/2015 Comp Metabolic Iqo434 NA 136 mEq/L 09/03/2015 Comp Metabolic Vqw216 K 4.4 mEq/L 09/03/2015 Comp Metabolic Ozc348 CL 103 mEq/L 09/03/2015 Comp Metabolic Gqu137 CO2 24.0 mEq/L 09/03/2015 Comp Metabolic Kkl561 ANION GAP 13 09/03/2015 Comp Metabolic Gfl540 GLUCOSE 87 mg/dL 09/03/2015 Comp Metabolic Zlq738 Creat 1.1 mg/dL 09/03/2015 Comp Metabolic Upu250 eGFR 53 ml/min/1.73m2 09/03/2015 Comp Metabolic Mjv976 BUN 17 mg/dL 09/03/2015 Comp Metabolic Wvj600 B/C Ratio 16.2 Ratio 09/03/2015 Comp Metabolic Zsn572 CALCIUM 9.0 mg/dL 09/03/2015 Comp Metabolic Brf858 ALK PHOS 55 U/L 09/03/2015 Comp Metabolic Xuj775 AST(SGOT) 83 U/L 09/03/2015 Comp Metabolic Ukg349 ALT(SGPT) 126 U/L 09/03/2015 Comp Metabolic Nbw961 BILI T 0.9 mg/dL 09/03/2015 Comp Metabolic Wkp338 ALBUMIN 3.9 g/dL 09/03/2015 Comp Metabolic Rhl331 TPRO 6.8 g/dL 09/03/2015 Comp Metabolic Xnw750 GLOB 2.9 g/dL 09/03/2015 Comp Metabolic Kjv853 A/G Ratio 1.4 Ratio 09/03/2015 Comp Metabolic Djn221 Osmo 273 mOsmo 09/03/2015 Tsh Ord6 hTSH II 1.62 uIU/mL 07/09/2015 Total T3 Ord42 TT3 0.6 ng/ml 07/09/2015 Total T3 Ord42 TT3 0.5 ng/ml 04/02/2015 Tsh Ord6 hTSH II 5.95 uIU/mL 04/02/2015 Free T4 Flq776 FREE T4 1.23 ng/dL 04/02/2015 Review of Systems System Result Effective [...] weakness 2017 Musculoskeletal No myalgias 07/06/2017 Constitutional recent illness 06/20/2017 Constitutional No chills 06/20/2017 Constitutional No diaphoresis 06/20/2017 Constitutional No fever 06/20/2017 Eyes No eye erythema 06/20/2017 Ears/Nose/Throat/Neck nasal allergies 07/2017 Ears/Nose/Throat/Neck nasal discharge 07/2017 Ears/Nose/Throat/Neck postnasal drip 07/2017 Ears/Nose/Throat/Neck sinus congestion Ears/Nose/Throat/Neck sore throat 2017 Cardiovascular No chest pain/pressure 07/2017 Cardiovascular No dyspnea 06/20/2017 Respiratory chest congestion 06/20/2017 Respiratory cough 06/20/2017 Respiratory No dyspnea 06/20/2017 Gastrointestinal No constipation 2017 Gastrointestinal No diarrhea 06/20/2017 Gastrointestinal No nausea 06/20/2017 Gastrointestinal No vomiting 06/20/2017 Dermatologic No rash 06/20/2017 Neurologic No alteration of consciousness 06/20/2017 Neurologic No mental status change 2017 Constitutional malaise 06/20/2017 Constitutional No recent illness 2016 Constitutional No [...] ulcer and yeast-like odor Full Exam - ENT Constitutional general appearance Overall: well nourished 06/20/2017 None Full Exam - ENT Constitutional general appearance Overall: well developed 06/20/2017 None Full Exam - ENT Constitutional general appearance Overall: in no acute distress 06/20/2017 None Full Exam - ENT Ears/Nose/Throat otoscopic exam Overall: external auditory canals normal 06/20/2017 None Full Exam - ENT Ears/Nose/Throat otoscopic exam Left tympanic membrane: air -fluid level 06/20/2017 None Full Exam - ENT Ears/Nose/Throat otoscopic exam Right tympanic membrane: air-fluid level 06/20/2017 None Full Exam - ENT Ears/Nose/Throat lips/ teeth/gingiva Overall: benign lips 06/20/2017 None Full Exam - ENT Ears/Nose/Throat oropharynx Overall: oral mucosa clear 06/20/2017 None Full Exam - ENT Ears/Nose/Throat oropharynx Posterior Pharynx: clear post nasal drainage 06/20/2017 None Full Exam - ENT Ears/Nose/Throat oropharynx Posterior Pharynx: erythema 06/20/2017 None Full Exam - ENT Respiratory inspection Overall: no retractions 06/20/2017 None Full Exam - ENT Respiratory inspection Overall: normal rate 07/2017 None Full Exam - ENT Respiratory auscultation Overall: breath sounds clear bilaterally 06/20/2017 None Full Exam - ENT Cardiovascular auscultation of heart Rate: normal rate 06/20/2017 None Full Exam - ENT Cardiovascular auscultation of heart Rhythm: regular rhythm 06/20/2017 None Full Exam - ENT Lymphatic palpation of lymph nodes Overall: anterior cervical chain benign 06/20/2017 None Full Exam - ENT Lymphatic palpation of lymph nodes Overall: posterior cervical chain benign 06/20/2017 None Full Exam - ENT Neurologic mood and affect Overall: normal mood 06/20/2017 None Full Exam - ENT Neurologic mood and affect Overall: normal affect 06/20/2017 None Full Exam - ENT Neurologic orientation Overall: oriented to person, place and time 06/20/2017 None Full Exam - General 1994 Constitutional [...] Procedure Codes Date THER/PROPH/DIAG INJ SC/IM CPT-4: 21799 07/06/2017 THER/PROPH/DIAG INJ SC/IM CPT-4: 13704 06/20/2017 TRIAMCINOLONE ACET INJ NOS CPT-4: J3301 06/20/2017 PPPS, SUBSEQ VISIT CPT -4: G0439 06/05/2017 THER/PROPH/DIAG INJ SC/IM CPT-4: 74338 06/05/2017 THER/PROPH/DIAG INJ SC/IM CPT-4: 57910 05/25/2017 VITAMIN B12 INJECTION CPT-4: J3420 05/25/2017 THER/PROPH/DIAG INJ SC/IM CPT-4: 48445 05/16/2017 THER/PROPH/DIAG INJ SC/IM CPT-4: 89901 05/01/2017 THER/PROPH/DIAG INJ SC/IM CPT-4: 24522 04/18/2017 THER/PROPH/DIAG INJ SC/IM CPT-4: 52726 04/06/2017 ADMIN INFLUENZA VIRUS VAC CPT-4: G0008 03/22/2017 FLU VACC PRSV FREE INC ANTIG CPT-4: 57362 03/22/2017 THER/PROPH/DIAG INJ SC/IM CPT-4: 76714 03/09/2017 THER/PROPH/DIAG INJ SC/IM CPT-4: 89891 02/23/2017 THER/PROPH/DIAG INJ SC/IM CPT-4: 52925 02/09/2017 THER/PROPH/DIAG INJ SC/IM CPT-4: 57408 01/23/2017 THER/PROPH/DIAG INJ SC/IM CPT-4: 48415 01/10/2017 THER/PROPH/DIAG INJ SC/IM CPT-4: 29407 12/28/2016 THER/PROPH/DIAG INJ SC/IM CPT-4: 85423 12/14/2016 THER/PROPH/DIAG INJ SC/IM CPT-4: 81380 11/24/2016 URINALYSIS NONAUTO W/O SCOPE CPT-4: 90318 11/07/2016 THER/PROPH/DIAG INJ SC/IM CPT-4: 40106 11/07/2016 THER/PROPH/DIAG INJ SC/IM CPT-4: 22418 10/24/2016 THER/PROPH/DIAG INJ SC/IM CPT-4: 94013 09/29/2016 THER/PROPH/DIAG INJ SC/IM CPT-4: 38085 08/29/2016 THER/PROPH/DIAG INJ SC/IM CPT-4: 07688 08/04/2016 THER/PROPH/DIAG INJ SC/IM CPT-4: 42903 07/21/2016 THER/PROPH/DIAG INJ SC/IM CPT-4: 29559 07/05/2016 THER/PROPH/DIAG INJ SC/IM CPT-4: 67005 06/22/2016 URINALYSIS NONAUTO W/O SCOPE CPT-4: 64125 06/22/2016 THER/PROPH/DIAG INJ SC/IM CPT-4: 03230 06/09/2016 PPPS, SUBSEQ VISIT CPT -4: G0439 05/30/2016 ADMIN PNEUMOCOCCAL VACCINE SNOMED CT: 68825663 CPT-4: G0009 05/25/2016 Pneumococcal Polysaccharide Vaccine, 23-Valent, Ad CPT-4: 23126 05/25/2016 THER/PROPH/DIAG INJ SC/IM CPT-4: 21886 05/25/2016 THER/PROPH/DIAG INJ SC/IM CPT-4: 30211 05/10/2016 TRIAMCINOLONE ACET INJ NOS CPT-4: J3301 04/26/2016 VITAMIN B12 INJECTION CPT-4: J3420 04/26/2016 THER/PROPH/DIAG INJ SC/IM CPT-4: 76756 04/11/2016 THER/PROPH/DIAG INJ SC/IM CPT-4: 88959 03/31/2016 ADMIN INFLUENZA VIRUS VAC CPT-4: G0008 03/15/2016 FLU VACC 4 STEPHANIE 3 YRS PLUS IM SNOMED CT: 31753137 CPT-4: 24350 03/15/2016 THER/PROPH/DIAG INJ SC/IM CPT-4: 47743 02/25/2016 THER/PROPH/DIAG INJ SC/IM CPT-4: 97111 02/02/2016 THER/PROPH/DIAG INJ SC/IM CPT-4: 97542 01/18/2016 VITAMIN B12 INJECTION CPT-4: J3420 12/29/2015 THER/PROPH/DIAG INJ SC/IM CPT-4: 15973 12/29/2015 THER/PROPH/DIAG INJ SC/IM CPT-4: 54553 12/08/2015 THER/PROPH/DIAG INJ SC/IM CPT-4: 50148 11/23/2015 URINALYSIS NONAUTO W/O SCOPE CPT-4: 98123 11/23/2015 THER/PROPH/DIAG INJ SC/IM CPT-4: 76055 11/11/2015 THER/PROPH/DIAG INJ SC/IM CPT-4: 77804 10/29/2015 THER/PROPH/DIAG INJ SC/IM CPT-4: 36454 10/12/2015 VITAMIN B12 INJECTION CPT-4: J3420 10/12/2015 THER/PROPH/DIAG INJ SC/IM CPT-4: 69536 09/29/2015 THER/PROPH/DIAG INJ SC/IM CPT-4: 19246 09/17/2015 THER/PROPH/DIAG INJ SC/IM CPT-4: 38153 09/03/2015 THER/PROPH/DIAG INJ SC/IM CPT-4: 32362 08/17/2015 THER/PROPH/DIAG INJ SC/IM CPT-4: 03704 08/06/2015 THER/PROPH/DIAG INJ SC/IM CPT-4: 79844 07/22/2015 THER/PROPH/DIAG INJ SC/IM CPT-4: 66398 07/08/2015 THER/PROPH/DIAG INJ SC/IM CPT-4: 19460 06/23/2015 THER/PROPH/DIAG INJ SC/IM CPT-4: 76198 06/08/2015 THER/PROPH/DIAG INJ SC/IM CPT-4: 05609 05/27/2015 DESTRUCT PREMALG LESION CPT-4: 65173 05/19/2015 DESTRUCT PREMALG LES 2-14 CPT-4: 12720 05/19/2015 THER/PROPH/DIAG INJ SC/IM CPT-4: 51976 05/12/2015 VITAMIN B12 INJECTION CPT-4: J3420 05/12/2015 THER/PROPH/DIAG INJ SC/IM CPT-4: 03154 04/30/2015 VITAMIN B12 INJECTION CPT-4: J3420 04/30/2015 THER/PROPH/DIAG INJ SC/IM CPT-4: 57768 04/16/2015 THER/PROPH/DIAG INJ SC/IM CPT-4: 62161 04/02/2015 VITAMIN B12 INJECTION CPT-4: J3420 04/02/2015 THER/PROPH/DIAG INJ SC/IM CPT-4: 57100 03/18/2015 THER/PROPH/DIAG INJ SC/IM CPT-4: 35572 03/03/2015 THER/PROPH/DIAG INJ SC/IM CPT-4: 01511 02/18/2015 THER/PROPH/DIAG INJ SC/IM CPT-4: 38393 02/04/2015 VITAMIN B12 INJECTION CPT-4: J3420 02/04/2015 THER/PROPH/DIAG INJ SC/IM CPT-4: 75940 01/22/2015 THER/PROPH/DIAG INJ SC/IM CPT-4: 19500 01/08/2015 VITAMIN B12 INJECTION CPT-4: J3420 01/08/2015 THER/PROPH/DIAG INJ SC/IM CPT-4: 32316 12/25/2014 VITAMIN B12 INJECTION CPT-4: J3420 12/25/2014 THER/PROPH/DIAG INJ SC/IM CPT-4: 73526 12/10/2014 VITAMIN B12 INJECTION CPT-4: J3420 12/10/2014 THER/PROPH/DIAG INJ SC/IM CPT-4: 60019 11/26/2014 VITAMIN B12 INJECTION CPT-4: J3420 11/26/2014 THER/PROPH/DIAG INJ SC/IM CPT-4: 57612 11/12/2014 VITAMIN B12 INJECTION CPT-4: J3420 11/12/2014 THER/PROPH/DIAG INJ SC/IM CPT-4: 56217 10/28/2014 Vital Signs Date Vital 07/06/2017 Blood Pressure 1: 132/66 Code : 8480-6 BMI: 29.4 Code : 84362-9 Heart Rate 1 : 85 bpm Height: 5'6" SpO2: 97% Weight: 182 lbs 06/20/2017 Blood Pressure 1: 134/86 Code : 8480-6 Heart Rate 1: 90 bpm Height: SpO2: 98% Weight: 06/05/2017 BMI: 29.1 Code: 32151-4 Height: 5'6" Weight: 180 lbs 05/25/2017 Blood Pressure 1: 126/76 Code : 8480-6 BMI: 29.1 Code : 77612-4 Heart Rate 1 : 77 bpm Height: 5'6" SpO2: 97% Weight: 180 lbs 03/23/2017 Blood Pressure 1: 142/84 Code : 8480-6 BMI: 29.1 Code : 42562-5 Heart Rate 1 : 91 bpm Height: 5'6" SpO2: 97% Weight: 180 lbs 01/23/2017 Blood Pressure 1: 150/90 Code : 8480-6 BMI: 29.9 Code : 69360-5 Heart Rate 1 : 81 bpm Height: 5'6" SpO2: 97% Weight: 185 lbs 11/02/2016 Blood Pressure 1: 148/78 Code : 8480-6 BMI: 29.7 Code : 75017-9 Heart Rate 1 : 87 bpm Height: 5'6" SpO2: 97% Weight: 184 lbs 09/29/2016 Blood Pressure 1: 128/78 Code : 8480-6 BMI: 29.7 Code : 68483-7 Heart Rate 1 : 78 bpm Height: 5'6" SpO2: 98% Weight: 184 lbs 07/26/2016 Blood Pressure 1: 138/72 Code : 8480-6 BMI: 30.0 Code : 13704-2 Heart Rate 1 : 85 bpm Height: 5'6" SpO2: 97% Weight: 186 lbs 05/30/2016 Blood Pressure 1: 132/76 Code : 8480-6 BMI: 30.0 Code : 01735-7 Heart Rate 1 : 80 bpm Height: 5'6" SpO2: 98% Waist Measure (cm): 99 cm Weight: 186 lbs 05/25/2016 Blood Pressure 1: 13276 Code : 8480-6 BMI: 30.0 Code : 54134-3 Heart Rate 1 : 80 bpm Height: 5'6" SpO2: 96% Weight: 186 lbs 02/25/2016 Blood Pressure 1: 110/64 Code : 8480-6 Heart Rate 1: 82 bpm Height: SpO2: 96% Weight: 01/25/2016 Blood Pressure 1: 118/70 Code : 8480-6 BMI: 30.0 Code : 76857-7 Heart Rate 1 : 78 bpm Height: 5'6" SpO2: 97% Weight: 186 lbs 11/11/2015 Blood Pressure 1: 128/82 Code : 8480-6 BMI: 29.2 Code : 86987-5 Heart Rate 1 : 86 bpm Height: 5'6" SpO2: 96% Temperature: 36.4 (C) / 97.6 (F) Weight: 181 lbs 10/12/2015 Blood Pressure 1: 118/70 Code : 8480-6 BMI: 29.2 Code : 30410-4 Heart Rate 1 : 81 bpm Height: 5'6" SpO2: 95% Weight: 181 lbs 09/03/2015 Blood Pressure 1: 138/78 Code : 8480-6 BMI: 29.9 Code : 68626-1 Heart Rate 1 : 88 bpm Height: 5'6" SpO2: 97% Weight: 185 lbs 05/19/2015 Blood Pressure 1: 146/78 Code : 8480-6 BMI: 30.0 Code : 59528-9 Heart Rate 1 : 66 bpm Height: 5'6" SpO2: 97% Weight: 186 lbs 05/12/2015 Blood Pressure 1: 120/70 Code : 8480-6 BMI: 29.9 Code : 25817-6 Heart Rate 1 : 89 bpm Height: 5'6" SpO2: 95% Weight: 185 lbs 01/13/2015 Blood Pressure 1: 140/90 Code : 8480-6 BMI: 30.3 Code : 23469-6 Heart Rate 1 : 84 bpm Height: 5'6" SpO2: 95% Weight: 188 lbs 12/16/2014 Blood Pressure 1: 140/82 Code : 8480-6 BMI: 29.5 Code : 68108-1 Heart Rate 1 : 86 bpm Height: [...] Findings pain with oral intake 07/06/2017 None cough Location in the lung 06/20/2017 None cough Quality acute None cough Quality productive 06/20/2017 None cough Pertinent Findings Denies dyspnea 06/20/2017 None cough Pertinent Findings Denies chills 06/20/2017 None cough Pertinent Findings Denies fever 06/20/2017 None sore throat Quality acute 06/20/2017 None sore throat Onset and Resolution sudden in onset 06/20/2017 None sore throat Pertinent Findings Denies fever 06/20/2017 None sore throat Pertinent Findings cough 06/20/2017 None Annual Medicare Wellness Exam Alcohol Use [...] data Encounters Encounter Performer Location Codes Date [id number]) 95224 EST. PATIENT, LEVEL IV Diagnosis: Atrophy of thyroid (acquired)[ICD10: E03.4] Diagnosis: Cough[ICD10: R05] Diagnosis: Laceration without foreign body of left forearm, initial encounter[ ICD10: S51.812A] Diagnosis: Candidiasis of skin and nail[ICD10: B37.2] Diagnosis: Other vitamin B12 deficiency anemias[ICD10: D51.8] Diagnosis: Slow transit constipation[ICD10: K59.01] [facility] CPT-4: 99123 07/06/2017 99636 EST. PATIENT, LEVEL III Diagnosis: Other vitamin B12 deficiency anemias[ICD10: D51.8] Diagnosis: Acute laryngopharyngitis[ICD10: J06.0] Diagnosis: Other allergic rhinitis[ICD10: J30.89] [facility] CPT-4: 70147 06/20/2017 [id number]) 20366 EST. PATIENT, LEVEL IV Diagnosis: Essential (primary) hypertension[ICD10: I10] Diagnosis: Chronic atrial fibrillation[ICD10: I48.2] Diagnosis: Atrophy of thyroid (acquired)[ICD10: E03.4] Diagnosis: 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 factor deficiency[ ICD10: D51.0] [facility] CPT-4: 25127 05/25/2017 ([id number]) 91899 EST. PATIENT, LEVEL IV Diagnosis: Type 2 diabetes mellitus without complications[ICD10: E11.9] Diagnosis: Atrophy of thyroid (acquired)[ICD10: E03.4] Diagnosis: Chest pain on breathing[ICD10: R07.1] Diagnosis: Chondrocostal junction syndrome [Tietze][ICD10: M94.0] Diagnosis: Other fatigue[ICD10: R53.83] [facility] CPT- 4: 24985 03/23/2017 ([id number]) 18278 EST. PATIENT, LEVEL IV Diagnosis: Type 2 diabetes mellitus without complications[ICD10: E11.9] Diagnosis: Essential (primary) hypertension[ICD10: I10] Diagnosis: Headache[ICD10: R51] Diagnosis: Atrophy of thyroid (acquired)[ICD10: E03.4] Diagnosis: Vitamin B12 deficiency anemia, unspecified[ICD10: D51.9] Yarely Vega MD [facility] CPT-4: 01170 01/23/2017 47124 EST. PATIENT, LEVEL III Diagnosis: Low back pain[ICD10: M54.5] Diagnosis: Pain in thoracic spine[ICD10: M54.6] Brianna Vega MD [facility] CPT-4: 33082 11/02/2016 ([id number]) 21412 EST. PATIENT, LEVEL IV Diagnosis: Essential (primary) hypertension[ICD10: I10] Diagnosis: Other vitamin B12 deficiency anemias[ICD10: D51.8] Diagnosis: Generalized abdominal pain[ICD10: R10.84] Yarely Vega MD [facility] CPT-4: 49352 09/29/2016 ([id number]) 20926 EST. PATIENT, LEVEL IV Diagnosis: Essential (primary) hypertension[ICD10: I10] Yarely Vega MD [facility] CPT-4: 82682 07/26/2016 ([id number]) 72319 EST. PATIENT, LEVEL IV Diagnosis: Benign lipomatous neoplasm of skin and subcutaneous tissue of right leg[ICD10: D17.23] Diagnosis: Pain in right ankle and joints of right foot[ICD10: M25.571] Diagnosis: Encounter for immunization[ICD10: Z23] Diagnosis: Vitamin B12 deficiency anemia, unspecified[ICD10: D51.9] Yarely Vega MD [facility] CPT-4: 97031 05/25/2016 80528 EST. PATIENT, LEVEL III Diagnosis: Other chest pain[ICD10: R07.89] Diagnosis: Other vitamin B12 deficiency anemias[ICD10: D51.8] Brianna Vega MD [facility] CPT-4: 89911 02/25/2016 ([id number]) 12311 EST. 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 PATIENT, LEVEL III Diagnosis: Other vitamin B12 deficiency anemias[ICD10: D51.8] Diagnosis: Acute nasopharyngitis [common cold][ICD10: J00] Diagnosis: Other allergic rhinitis[ICD10: J30.89] Brianna Vega MD, [facility] CPT-4: 40537 11/11/2015 ([id number]) 28047 EST. PATIENT, LEVEL IV Diagnosis: Essential tremor[ICD10: G25.0] Diagnosis: Chronic fatigue, unspecified[ICD10: R53.82] Diagnosis: Other hypersomnia[ICD10: G47.19] Diagnosis: Essential (primary) hypertension[ICD10: I10] Yarely Vega MD, [facility] CPT-4: 65522 10/12/2015 [id number]) 17663 EST. PATIENT, LEVEL IV Diagnosis: Essential (primary) hypertension[ICD10: I10] Diagnosis: Chronic atrial fibrillation[ICD10: I48.2] Diagnosis: Abnormal levels of other serum enzymes[ICD10: R74.8] Diagnosis: Type 2 diabetes mellitus without complications[ICD10: E11.9] Diagnosis: Vitamin B12 deficiency anemia, unspecified[ICD10: D51.9] Yarely Vega MD, [facility] CPT-4: 15255 09/03/2015 ([id number]) 72062 EST. PATIENT, LEVEL III Diagnosis: Nausea[ICD10: R11.0] Diagnosis: Essential tremor[ICD10: G25.0] Diagnosis: Actinic keratosis[ICD10: L57.0] Yarely Vega MD, [facility] CPT- 4: 60359 05/19/2015 ([id number]) 53708 EST. PATIENT, LEVEL IV Diagnosis: Vitamin B12 deficiency anemia, unspecified[ICD10: D51.9] Diagnosis: Chronic atrial fibrillation[ICD10: I48.2] Diagnosis: Headache[ICD10: R51] Diagnosis: Chronic fatigue, unspecified[ICD10: R53.82] Diagnosis: Cervicalgia[ICD10: M54.2] Yarely Vega MD, [facility] CPT-4: 89181 05/12/2015 ([id number]) 07613 EST. PATIENT, LEVEL IV Diagnosis: ESSENTIAL HYPERTENSION[ICD9: 401.9] Diagnosis: Afib[ICD9: 427.31] Diagnosis: Anxiety[ICD9: 300.00] Diagnosis: Insomnia[ICD9: 780.52] [facility] CPT-4: 71305 01/13/2015 ([id number]) OFFICE VISIT, NEW - LEVEL 4 Diagnosis: Hypothyroidism[ICD9: 244.9] Diagnosis: DIABETES TYPE II[ICD9: 250.00] Diagnosis: ESSENTIAL HYPERTENSION[ICD9: 401.9] Diagnosis: Afib[ICD9: 427.31] Diagnosis: Anxiety[ICD9: 300.00] Diagnosis: B12 deficiency[ICD9: 266.2] Janet Vega MD, [facility] CPT-4: 88239 12/16/2014 Plan of Care Planned Activity Notes [...] with current treatment plan and mucinex 07/06/2017 Appointment: Yarely Vega WPtel: [address] [place], [place] [id number] [place] (15 min) Moderate 07/06/2017 Patient Education: Patient Medication Summary Completed 07/06/2017 Visit Plan: URI - Pt advised to increase fluids, vitamin C. Discussed natural and expected course of this diagnosis and need to alert me if symptoms do not follow expected course, or if any worse. RX sent to patient' s pharmacy. Sinusitis - Pt has acute infection - pain in face, maxillary region , Pt informed to use decongestant, RX given to patient, sinus rinses also recommended. Call if symptoms do not show improvement. Allergies - chronic - recommended pt to [...] spray in the nasal steroid allergy spray. 06/20/2017 [phone] [id number] (15 min) Moderate 06/20/2017 Patient Education: Patient Medication Summary Completed 06/20/2017 Visit Plan: Medicare Exam - today [...] paperwork for health care surrogate. 06/05/2017 Appointment: Bucky 06/05/2017 Appointment: [facility] [phone] [id number] [facility] [place] 06/05/2017 Patient Education: [...] of control. 05/25/2017 [facility] [phone] [facility] ([facility] min) Moderate 05/25/2017 Patient Education: [...] wall. Fatigue - pt to discuss with Beef Ribber about the possibility of amiodarone causing her fatigue/malaise. 03/23/2017 Appointment: [facility] [phone] [id number] [place] (15 min) Moderate 03/23/2017 Patient [...] twice daily. 01/23/2017 Appointment: [facility] [phone] [id number] (15 min) Moderate 01/23/2017 Patient Education: Patient [...] not improve. 11/02/2016 Appointment: [facility] [phone] [phone] (15 min) Moderate 11/02/2016 Patient Education: Patient [...] carafate 09/29/2016 Appointment: [facility] [phone] [facility] [place] (15 min) Moderate 09/29/2016 Patient Education: Patient Medication Summary Completed 09/29/2016 Appointment: [facility] [phone] [facility] [place] (15 min) Moderate 09/27/2016 Appointment: [facility] [phone] [facility] [place] (15 min) Moderate 09/20/2016 Appointment: [facility] [phone] [facility] [place] (15 min) Moderate 09/20/2016 Patient Education: Patient Medication Summary Completed 09/06/2016 Appointment: [facility] [phone] [id number] [place] (15 min) Moderate 08/30/2016 Appointment: [...] acute concerns. 07/26/2016 Appointment: [facility] [phone] [phone] (15 min) Moderate 07/26/2016 Patient Education: [...] care surrogate. 05/30/2016 Appointment: [facility] [phone] [phone] [facility] [place] 05/30/2016 Patient Education: [...] at bedtime 05/25/2016 Appointment: [facility] [phone] [phone] (15 min) Moderate 05/25/2016 Patient Education: Patient Medication Summary Completed 05/25/2016 Patient Education: Obesity Completed 05/25/2016 Care Plan: Referral Order SNOMED-CT : [id number] Pending 05/25/2016 Appointment: Injection 05/10/2016 Patient Education: Patient Medication Summary Completed 05/10/2016 Appointment: Injection 04/26/2016 Patient Education: Patient Medication Summary Completed 04/26/2016 Appointment: Injection 04/11/2016 Patient Education: Patient Medication Summary Completed 04/11/2016 Appointment: Injection 03/31/2016 Patient Education: Patient Medication Summary Completed 03/31/2016 Patient Education: Patient Medication Summary Completed 03/22/2016 [facility] 45507[facility] Pending 03/22/2016 Appointment: Injection 03/15/2016 Patient Education: [...] any concerns. 02/25/2016 Appointment: [facility] [phone] [phone] (15 min) Moderate 02/25/2016 Patient Education: Patient [...] the patients recent sleep study - recommended [place] home patient eval of pt - nocturnal [...] the patients recent sleep study - recommended [place] home patient eval of pt - nocturnal [...] case with Faiza's daughter who had left [facility]. She is interested in looking at assisted living facilities for her mom as Faiza's family is for assisted living placement sooner rather than later. 10/12/2015 Appointment: [facility] [phone] [facility] (15 min) Moderate 10/12/2015 Patient Education: [...] Completed 08/17/2015 Appointment: [facility]ega [facility]Ptel[facility] [phone] [facility] (15 min) Moderate 08/11/2015 Appointment: Injection [...] x 2 05/19/2015 Appointment: [facility]arely [facility]ega [facility]Ptel: [phone] [facility] (30 min) Complex 05/19/2015 Patient Education: [...] prn alprazolam. 01/13/2015 Appointment: Yarely [facility]ega [facility] [facility] [place] (15 min) Moderate 01/13/2015 Patient Education: [...] current medications. 12/16/2014 Appointment: Janet Fam [facility]el[facility] [phone] [place] New Patient 12/16/2014 Patient Education: Patient Medication Summary Completed 12/16/2014 Appointment: Injection 12/10/2014 Patient Education: Patient Medication Summary Completed 12/10/2014 Appointment: Injection 11/26/2014 Patient Education: Patient Medication Summary Completed 11/26/2014 Patient Education: Patient Medication Summary Completed 11/12/2014 Appointment: Nurse Visit 10/28/2014 Patient Education: Patient Medication Summary Completed 10/28/2014 Appointment: Injection 10/14/2014 Referral: Genaro Bravo Referral Appointment Requested Instructions Comment . b12 injection decrease topamax to one [...] their heart rate is becoming uncontrolled. . Atrial Fibrillation - pt on chronic [...] directed, and understands the consequences of over-medication. . Low back pain- ongoing - will [...] is worsening or does not improve. . Hypertension - well controlled - continue [...] case with Faiza's daughter who had left [facility]. She is interested in looking at assisted living facilities for her mom as Faiza's family is for assisted living placement sooner rather than later. melatonin can take 3mg to 10mg at [...] insomnia. Anxiety - continue with prn alprazolam. . Medicare Exam - today we discussed [...] cryotherapy of skin lesions x 2 . Chest Pain - pt states that she has had chest pain off an on, she states that it goes down her left arm and to her back. She states that she has had some nausea. Will check labs and order EKG - pt is to notify clinic if symptoms return, or with any concerns. increase norvasc from 5mg daily to 10mg [...] pt is to call for acute concerns. Reminder - please take the TOPAMAX daily [...] control. headaches - take topamax at bedtime talk to Heart doctor about possible amiodarone [...] wall. Fatigue - pt to discuss with Beef Ribber about the possibility of amiodarone causing her [...] the patients recent sleep study - recommended [place] home patient eval of pt - nocturnal oxygen study - will order - if positive oxygen concentrator with humidification. I suspect that she has the nocturnal hypoxemia due to her chronic atrial fibrillation and history of coronary artery disease with chronic systolic heart failure. . Hypertension - well controlled - continue [...] the patients recent sleep study - recommended [place] home patient eval of pt - nocturnal oxygen study - will order - if positive oxygen concentrator with humidification. loratadine - generic for CLARITIN - take [...] topamax - increase dose to twice daily. Schedule thyroid ultrasound Add T3 and digoxin [...] situational exposure. No change in current medications. . URI - Pt advised to increase [...] spray in the nasal steroid allergy spray. . Medicare Exam - today we discussed [...] her DOP[employer] paperwork for health care surrogate. Stop Keflex Start Doxycycline - probiotic while on the antibiotic Tessalon perles as needed for cough Steroid shot today Let me know if you are not getting better and will order chest x-ray if needed.. URI - Pt advised to increase fluids, vitamin C. Discussed natural and expected course of this diagnosis and need to alert me if symptoms do not follow expected course, or if any worse. RX sent to patient's pharmacy. Sinusitis - Pt has acute infection - pain in face, maxillary region, Pt informed to use decongestant, RX given to patient, sinus rinses also recommended. Call if symptoms do not show improvement. Allergies - chronic - recommended pt to [...] spray in the nasal steroid allergy spray. womens probiotic - take one pill daily. [...] topamax - increase dose to twice daily. liquid or dissolving B12 - 2000 units [...] months based on previous levels of control. Power Pudding: equal parts of prune juice, [...]
--- OUTSIDE RECORDS SUMMARY | 2017-09-17 09:42 | XMS REPORT | CCD ---
Author Author [facility] Organization [facility] Address [address] [place] [address] Phone Care Team Providers Care Faro Dealer Name Role Phone PP Unavailable CCM Unavailable Summary Purpose Interface Exchange Insurance Providers Payer name Policy type / Coverage type Covered alliance party ID Effective Begin Date Effective End Date WPS Medicare Part B Medicare Part B [id number] Unknown Unknown Principal Life Insurance Medicare Part B [id number] Unknown Unknown Family history Brother Diagnosis Age At Onset Heart Attack Unknown Mother Diagnosis Age At Onset Hypertension Unknown kidney disease Unknown Stroke Unknown Father Diagnosis Age At Onset Arthritis Unknown Social History Social History Element Codes Description Effective Dates Employment Unknown Retired worked at [employer] 2016 Marital status Unknown Single 12/16/[address]: 2525043 Former smoker 12/16/[address]: 766287811 Never drinks alcohol 12/16/2014 Allergies, Adverse Reactions, [...] Start Date Stop Date Status Fill Instructions hydrocodone 5 mg-acetaminophen 325 mg tablet RxNorm: 843546 1-2 Tablet(s) PO Q6 as needed for pain 07/25/2017 08/23/2017 Active Tamiflu 75 mg capsule RxNorm: 824472 1 Capsule(s) PO BID 2017 No Stop Date Active nystatin 100,000 unit/gram topical powder RxNorm: 777568 1 Gram(s) TOP QID 07/14/2017 07/23/2017 Inactive levothyroxine 125 mcg tablet RxNorm: 160253 Tablet(s) 1 Tablet(s) PO daily 07/10/2017 01/05/2018 Active nystatin 100,000 unit/gram topical powder RxNorm: 736315 1 Gram(s) TOP QID 07/06/2017 07/13/2017 Inactive cyanocobalamin (vit B-12) 1,000 mcg/mL injection solution RxNorm: 474376 Milliliter(s) Inj 07/06/2017 07/06/2017 Inactive Kenalog 40 mg/mL suspension for injection RxNorm: 2854738 1 Milliliter(s) Inj 06/20/2017 06/20/2017 Inactive doxycycline hyclate 100 mg capsule RxNorm: 2051555 1 Capsule(s) PO BID 06/20/2017 06/26/2017 Inactive cyanocobalamin (vit B-12) 1,000 mcg/mL injection solution RxNorm: 279822 Milliliter(s) Inj 06/20/2017 06/20/2017 Inactive Mobic 15 mg tablet RxNorm: 453930 1 Tablet(s) PO daily 201606/08/2018 Active Keflex 500 mg capsule RxNorm: 693486 1 Capsule(s) PO TID 201606/23/2017 Inactive Please deliver to patient cyanocobalamin (vit B-12) 1,000 mcg/mL injection solution RxNorm: 702667 Milliliter(s) Inj 06/05/2017 06/05/2017 Inactive buspirone 15 mg tablet RxNorm: 389942 TAKE 1 TABLET BY MOUTH TWICE DAILY 05/31/2017 05/25/2018 Active Generic For:BUSPAR 15MG 05/31/2017 9:19:20 AM cyanocobalamin (vit B-12) 1,000 mcg/mL injection solution RxNorm: 051402 Milliliter(s) Inj 05/25/2017 05/25/2017 Inactive hydrocodone 5 mg-acetaminophen 325 mg tablet RxNorm: 100889 1-2 Tablet(s) PO Q6 as needed for pain 05/25/2017 06/23/2017 Inactive amiodarone 200 mg tablet RxNorm: 038913 1/2 Tablet(s) PO daily 05/22/2017 No Stop Date Active cardiology decreased to 100mg daily cyanocobalamin (vit B-12) 1,000 mcg/mL injection solution RxNorm: 123543 Milliliter(s) Inj 05/16/2017 05/16/2017 Inactive Zofran ODT 4 mg disintegrating tablet RxNorm: 830012 1 Tablet(s) PO TID as needed 05/03/2017 05/04/2017 Inactive hydrocodone 5 mg-acetaminophen 325 mg tablet RxNorm: 325412 1-2 Tablet(s) PO Q6 as needed for pain 05/01/2017 05/05/2017 Inactive cyanocobalamin (vit B-12) 1,000 mcg/mL injection solution RxNorm: 498143 1 Milliliter(s) Inj 05/01/2017 05/01/2017 Inactive cyanocobalamin (vit B-12) 1,000 mcg/mL injection solution RxNorm: 222652 INJECT ONE 1 ML EVERY TWO WEEKS 04/26/20172018 Active 04/26/2017 9:08:52 AM Zoloft 50 mg tablet RxNorm: 932437 Tablet(s) TAKE 1 TABLET BY MOUTH DAILY 04/25/2017 10/21/2017 Active Generic For:ZOLOFT 50MG cyanocobalamin (vit B-12) 1,000 mcg/mL injection solution RxNorm: 755964 Milliliter(s) Inj 04/18/2017 04/18/2017 Inactive liothyronine 5 mcg tablet RxNorm: 992549 1 Tablet(s) PO BID 10/09/2017 Active cyanocobalamin (vit B-12) 1,000 mcg/mL injection solution RxNorm: 850461 Milliliter(s) Inj 04/06/2017 04/06/2017 Inactive hydrocodone 5 mg-acetaminophen 325 mg tablet RxNorm: 828914 1-2 Tablet(s) PO Q6 as needed for pain 04/06/2017 04/10/2017 Inactive cyanocobalamin (vit B-12) 1,000 mcg/mL injection solution RxNorm: 866636 Milliliter(s) Inj 03/22/2017 03/22/2017 Inactive alprazolam 0.25 mg tablet RxNorm: 800952 1 Tablet(s) PO BID 09/12/2017 Active alprazolam 0.25 mg tablet RxNorm: 498905 1 Tablet(s) PO BID 09/10/2017 Active hydrocodone 5 mg-acetaminophen 325 mg tablet RxNorm: 307949 1-2 Tablet(s) PO Q6 as needed for pain 03/09/2017 03/13/2017 Inactive cyanocobalamin (vit B-12) 1,000 mcg/mL injection solution RxNorm: 748117 Milliliter(s) Inj 03/09/2017 03/09/2017 Inactive cyanocobalamin (vit B-12) 1,000 mcg/mL injection solution RxNorm: 728095 Milliliter(s) Inj 02/23/2017 02/23/2017 Inactive cyanocobalamin (vit B-12) 1,000 mcg/mL injection solution RxNorm: 800343 Milliliter(s) Inj 02/09/2017 02/09/2017 Inactive hydrocodone 5 mg-acetaminophen 325 mg tablet RxNorm: 895671 1-2 Tablet(s) PO Q6 as needed for pain 02/08/2017 02/12/2017 Inactive Topamax 25 mg tablet RxNorm: 193394 1 Tablet(s) PO BID 201605/22/2017 Inactive Generic For:TOPAMAX 25MG 12/06/2016 9:15:13 AM cyanocobalamin (vit B-12) 1,000 mcg/mL injection solution RxNorm: 101983 Milliliter(s) Inj 01/23/2017 01/23/2017 Inactive cyanocobalamin (vit B-12) 1,000 mcg/mL injection solution RxNorm: 120201 Milliliter(s) Inj 01/10/2017 01/10/2017 Inactive hydrocodone 5 mg-acetaminophen 325 mg tablet RxNorm: 278535 1-2 Tablet(s) PO Q6 as needed for pain 01/09/2017 01/13/2017 Inactive cyanocobalamin (vit B-12) 1,000 mcg/mL injection solution RxNorm: 585944 1 Milliliter(s) Inj 12/28/2016 12/28/2016 Inactive cyanocobalamin (vit B-12) 1,000 mcg/mL injection solution RxNorm: 336377 Milliliter(s) Inj 12/14/2016 12/14/2016 Inactive buspirone 15 mg tablet RxNorm: 145788 1 Tablet(s) PO BID 201605/30/2017 Inactive hydrocodone 5 mg-acetaminophen 325 mg tablet RxNorm: 329738 1-2 Tablet(s) PO Q6 as needed for pain 12/08/2016 12/12/2016 Inactive Topamax 25 mg tablet RxNorm: 614312 TAKE 1 TABLET BY MOUTH EVERY DAY AT BEDTIME 12/06/2016 01/22/2017 Inactive Generic For:TOPAMAX 25MG 12/06/2016 9:15:13 AM Lac-Hydrin Five 5 % lotion RxNorm: 275139 1 Gram(s) TOP daily 12/02/2016 01/30/2017 Inactive cyanocobalamin (vit B-12) 1,000 mcg/mL injection solution RxNorm: 581407 Milliliter(s) Inj 11/24/2016 11/24/2016 Inactive Ceftin 500 mg tablet RxNorm: 039510 1 Tablet(s) PO BID 201606/13/2017 Inactive Cipro 500 mg tablet RxNorm: 325060 1 Tablet(s) PO BID 201611/10/2016 Inactive Cipro 500 mg tablet RxNorm: 671348 1 Tablet(s) PO BID 201611/11/2016 Inactive cyanocobalamin (vit B-12) 1,000 mcg/mL injection solution RxNorm: 144459 1 Milliliter(s) Inj 11/07/2016 11/07/2016 Inactive hydrocodone 5 mg-acetaminophen 325 mg tablet RxNorm: 556147 1-2 Tablet(s) PO Q6 as needed for pain 11/02/2016 11/06/2016 Inactive cyanocobalamin (vit B-12) 1,000 mcg/mL injection solution RxNorm: 708473 Milliliter(s) Inj 10/24/2016 10/24/2016 Inactive levothyroxine 125 mcg tablet RxNorm: 768641 Tablet(s) 1 Tablet(s) PO daily 10/24/2016 04/21/2017 Inactive liothyronine 5 mcg tablet RxNorm: 410522 1 Tablet(s) PO BID 01/201704/12/2017 Inactive hydrocodone 5 mg-acetaminophen 325 mg tablet RxNorm: 318460 1-2 Tablet(s) PO Q6 as needed for pain 10/17/2016 10/21/2016 Inactive Keflex 500 mg capsule RxNorm: 991971 1 Capsule(s) PO TID 201610/06/2016 Inactive Keflex 500 mg capsule RxNorm: 184873 1 Capsule(s) PO TID 201610/16/2016 Inactive Please deliver to patient cyanocobalamin (vit B-12) 1,000 mcg/mL injection solution RxNorm: 476511 1 Milliliter(s) Inj 09/29/2016 09/29/2016 Inactive alprazolam 0.25 mg tablet RxNorm: 313294 1 Tablet(s) PO BID 09/201603/16/2017 Inactive Cozaar 100 mg tablet RxNorm: 220769 1 Tablet(s) PO daily 2016 No Stop Date Active metoprolol tartrate 50 mg tablet RxNorm: 178368 1/2 Tablet(s) PO BID 09/14/2016 12/12/2016 Inactive Zoloft 50 mg tablet RxNorm: 385602 Tablet(s) TAKE 1 TABLET BY MOUTH DAILY 09/14/2016 03/12/2017 Inactive Generic For:ZOLOFT 50MG liothyronine 5 mcg tablet RxNorm: 302199 1 Tablet(s) PO BID 10/23/2016 Inactive Calmoseptine 0.44 %-20.6 % topical ointment RxNorm: 731447 1 Application TOP BID and as needed to sore on buttocks 09/07/2016 No Stop Date Active cyanocobalamin (vit B-12) 1,000 mcg/mL injection solution RxNorm: 388301 Milliliter(s) Inj 08/29/2016 08/29/2016 Inactive hydrocodone 5 mg-acetaminophen 325 mg tablet RxNorm: 313101 1-2 Tablet(s) PO Q6 as needed for pain 08/29/2016 10/16/2016 Inactive levothyroxine 125 mcg tablet RxNorm: 230877 1 Tablet(s) PO daily 08/25/2016 10/23/2016 Inactive Topamax 25 mg tablet RxNorm: 296239 TAKE 1 TABLET BY MOUTH EVERY DAY AT BEDTIME 08/17/2016 12/05/2016 Inactive Generic For:TOPAMAX 25MG 08/17/2016 2:14:37 PM hydrocodone 5 mg-acetaminophen 325 mg tablet RxNorm: 394405 1-2 Tablet(s) PO Q6 as needed for pain 08/11/2016 08/28/2016 Inactive hydrocodone 5 mg-acetaminophen 325 mg tablet RxNorm: 358983 1 -2 Tablet(s) PO Q6 as needed for pain 08/11/2016 08/18/2016 Inactive hydrocodone 5 mg-acetaminophen 325 mg tablet RxNorm: 491998 1 Tablet(s) PO Q6 as needed for pain 08/05/2016 08/10/2016 Inactive cyanocobalamin (vit B-12) 1,000 mcg/mL injection solution RxNorm: 113132 Milliliter(s) Inj 08/04/2016 08/04/2016 Inactive Norvasc 10 mg tablet RxNorm: 356280 1 Tablet(s) PO daily 201607/20/2017 Inactive levothyroxine 125 mcg tablet RxNorm: 622688 1 Tablet(s) PO daily 07/21/2016 10/18/2016 Inactive alprazolam 0.25 mg tablet RxNorm: 390655 1 Tablet(s) PO QHS 07/201609/19/2016 Inactive Norvasc 5 mg tablet RxNorm: 831826 1 Tablet(s) PO daily 201607/25/2016 Inactive cyanocobalamin (vit B-12) 1,000 mcg/mL injection solution RxNorm: 905648 Milliliter(s) Inj 07/21/2016 07/21/2016 Inactive Zoloft 50 mg tablet RxNorm: 047279 Tablet(s) TAKE 1 TABLET BY MOUTH DAILY 07/21/2016 09/13/2016 Inactive Generic For:ZOLOFT 50MG cyanocobalamin (vit B-12) 1,000 mcg/mL injection solution RxNorm: 447919 1 Milliliter(s) Inj 07/05/2016 07/05/2016 Inactive cyanocobalamin (vit B-12) 1,000 mcg/mL injection solution RxNorm: 133490 1 Milliliter(s) Inj 06/22/2016 06/22/2016 Inactive cyanocobalamin (vit B-12) 1,000 mcg/mL injection solution RxNorm: 289687 Milliliter(s) Inj 06/09/2016 06/09/2016 Inactive Aricept 10 mg tablet RxNorm: 251352 1 Tablet(s) PO daily 201505/21/2017 Inactive Mobic 15 mg tablet RxNorm: 173493 1 Tablet(s) PO daily 201505/21/2017 Inactive levothyroxine 125 mcg tablet RxNorm: 935640 1 Tablet(s) PO daily 05/25/2016 07/20/2016 Inactive cyanocobalamin (vit B-12) 1,000 mcg/mL injection solution RxNorm: 982895 1 Milliliter(s) Inj 05/25/2016 05/25/2016 Inactive doxycycline hyclate 100 mg capsule RxNorm: 7150602 1 Capsule(s) PO BID 05/16/2016 05/15/2016 Inactive doxycycline hyclate 100 mg capsule RxNorm: 3910718 1 Capsule(s) PO BID 05/16/2016 05/22/2016 Inactive cyanocobalamin (vit B-12) 1,000 mcg/mL injection solution RxNorm: 849128 Milliliter(s) Inj 05/10/2016 05/10/2016 Inactive cyanocobalamin (vit B-12) 1,000 mcg/mL injection solution RxNorm: 612090 Milliliter(s) Inj 04/26/2016 04/26/2016 Inactive Topamax 25 mg tablet RxNorm: 501638 1 Tablet(s) PO QPM 201508/16/2016 Inactive cyanocobalamin (vit B-12) 1,000 mcg/mL injection solution RxNorm: 391362 Milliliter(s) 1 Milliliter(s) Inj H8gohra 04/11/2016 12/31/2017 Active liothyronine 5 mcg tablet RxNorm: 386873 1 Tablet(s) PO BID 09/13/2016 Inactive cyanocobalamin (vit B-12) 1,000 mcg/mL injection solution RxNorm: 221629 Milliliter(s) Inj 04/11/2016 04/11/2016 Inactive cyanocobalamin (vit B-12) 1,000 mcg/mL injection solution RxNorm: 365194 Milliliter(s) Inj 03/31/2016 03/31/2016 Inactive cyanocobalamin (vit B-12) 1,000 mcg/mL injection solution RxNorm: 073348 1 Milliliter(s) Inj 03/15/2016 03/15/2016 Inactive levothyroxine 125 mcg tablet RxNorm: 977494 1 Tablet(s) PO daily 2016 03/03/2016 Inactive levothyroxine 125 mcg tablet RxNorm: 684298 1 Tablet(s) PO daily 2016 05/24/2016 Inactive cyanocobalamin (vit B-12) 1,000 mcg/mL injection solution RxNorm: 203885 Milliliter(s) Inj 02/25/2016 02/25/2016 Inactive cyanocobalamin (vit B-12) 1,000 mcg/mL injection solution RxNorm: 437718 1 Milliliter(s) Inj 02/02/2016 02/02/2016 Inactive sucralfate 1 gram tablet RxNorm: 366657 1 Tablet(s) PO QHS 01/2016 No Stop Date Active amiodarone 200 mg tablet RxNorm: 972732 1/2 Tablet(s) PO BID 05/21/2017 Inactive cyanocobalamin (vit B-12) 1,000 mcg/mL injection solution RxNorm: 854836 Milliliter(s) Inj 01/18/2016 01/18/2016 Inactive cyanocobalamin (vit B-12) 1,000 mcg/mL injection solution RxNorm: 000994 Milliliter(s) Inj 12/29/2015 12/29/2015 Inactive Topamax 25 mg tablet RxNorm: 404192 1 Tablet(s) PO QPM 201504/05/2016 Inactive cyanocobalamin (vit B-12) 1,000 mcg/mL injection solution RxNorm: 777155 Milliliter(s) Inj 12/08/2015 12/08/2015 Inactive Bactrim DS 800 mg-160 mg tablet RxNorm: 495090 1 Tablet(s) PO BID 11/23/2015 11/22/2015 Inactive cyanocobalamin (vit B-12) 1,000 mcg/mL injection solution RxNorm: 839237 Milliliter(s) Inj 11/23/2015 11/23/2015 Inactive Bactrim DS 800 mg-160 mg tablet RxNorm: 431361 1 Tablet(s) PO BID 11/23/2015 11/29/2015 Inactive cyanocobalamin (vit B-12) 1,000 mcg/mL injection solution RxNorm: 556199 Milliliter(s) Inj 11/11/2015 11/11/2015 Inactive amoxicillin 500 mg capsule RxNorm: 172527 1 Capsule(s) PO TID 11/10/2015 11/19/2015 Inactive Zithromax Z-Henrique 250 mg tablet RxNorm: 899054 1 Tablet(s) PO UD 11/10/2015 01/24/2016 Inactive zpack x 1 amoxicillin 500 mg capsule RxNorm: 582758 1 Capsule(s) PO TID 11/10/2015 11/09/2015 Inactive cyanocobalamin (vit B-12) 1,000 mcg/mL injection solution RxNorm: 411210 1 Milliliter(s) Inj 10/29/2015 10/29/2015 Inactive Whitetop 3 capsule RxNorm : 1 Capsule(s) PO QAM , 2 Capsules at noon, 1 Capsule QHS 10/13/2015 No Stop Date Active potassium chloride ER 20 mEq tablet,extended release RxNorm: 014663 2 Tablet(s) PO daily at noon 10/13/2015 No Stop Date Active alprazolam 0.25 mg tablet RxNorm: 751117 1 Tablet(s) PO QHS 07/20/2016 Inactive amiodarone 200 mg tablet RxNorm: 746727 1 Tablet(s) PO BID 01/24/2016 Inactive cyanocobalamin (vit B-12) 1,000 mcg/mL injection solution RxNorm: 949877 1 Milliliter(s) Inj 10/12/2015 10/12/2015 Inactive Zofran 4 mg tablet RxNorm: 961982 1 Tablet(s) PO daily as needed 10/07/2015 05/24/2016 Inactive Zoloft 50 mg tablet RxNorm: 673149 TAKE 1 TABLET BY MOUTH DAILY 10/05/2015 05/01/2016 Inactive Generic For:ZOLOFT 50MG cyanocobalamin (vit B-12) 1,000 mcg/mL injection solution RxNorm: 261076 1 Milliliter(s) Inj 09/29/2015 09/29/2015 Inactive cyanocobalamin (vit B-12) 1,000 mcg/mL injection solution RxNorm: 875061 1 Milliliter(s) Inj 09/17/2015 09/17/2015 Inactive Norvasc 5 mg tablet RxNorm: 509613 1 Tablet(s) PO daily 201507/20/2016 Inactive liothyronine 5 mcg tablet RxNorm: 074048 1 Tablet(s) PO BID 03/14/2016 Inactive Zoloft 50 mg tablet RxNorm: 808321 1 Tablet(s) PO daily 201510/04/2015 Inactive buspirone 15 mg tablet RxNorm: 171406 1 Tablet(s) PO BID 201509/10/2016 Inactive buspirone 15 mg tablet RxNorm: 474751 1 Tablet(s) PO BID 201509/16/2015 Inactive Topamax 25 mg tablet RxNorm: 037264 1 Tablet(s) PO QPM 201512/07/2015 Inactive cyanocobalamin (vit B-12) 1,000 mcg/mL injection solution RxNorm: 341461 1 Milliliter(s) Inj 09/03/2015 09/03/2015 Inactive cyanocobalamin (vit B-12) 1,000 mcg/mL injection solution RxNorm: 041474 Milliliter(s) Inj 08/17/2015 08/17/2015 Inactive cyanocobalamin (vit B-12) 1,000 mcg/mL injection solution RxNorm: 027217 Milliliter(s) Inj 08/06/2015 08/06/2015 Inactive levothyroxine 150 mcg tablet RxNorm: 698903 1 Tablet(s) PO daily 07/22/2015 03/03/2016 Inactive Aricept 10 mg tablet RxNorm: 573601 1 Tablet(s) PO daily 201505/26/2016 Inactive Mobic 15 mg tablet RxNorm: 355827 1 Tablet(s) PO daily 201505/26/2016 Inactive cyanocobalamin (vit B-12) 1,000 mcg/mL injection solution RxNorm: 374473 Milliliter(s) Inj 07/22/2015 07/22/2015 Inactive liothyronine 5 mcg tablet RxNorm: 592857 1 Tablet(s) PO BID 08/201509/16/2015 Inactive cyanocobalamin (vit B-12) 1,000 mcg/mL injection solution RxNorm: 682664 Milliliter(s) Inj 07/08/2015 07/08/2015 Inactive cyanocobalamin (vit B-12) 1,000 mcg/mL injection solution RxNorm: 626330 Milliliter(s) Inj 06/23/2015 06/23/2015 Inactive cyanocobalamin (vit B-12) 1,000 mcg/mL injection solution RxNorm: 716518 1 Milliliter(s) Inj 06/08/2015 06/08/2015 Inactive cyanocobalamin (vit B-12) 1,000 mcg/mL injection solution RxNorm: 084987 Milliliter(s) Inj 05/27/2015 05/27/2015 Inactive Aricept 10 mg tablet RxNorm: 514953 1 Tablet(s) PO daily 201407/21/2015 Inactive Zofran 4 mg tablet RxNorm: 530968 1 Tablet(s) PO daily as needed 05/20/2015 06/18/2015 Inactive alprazolam 0.25 mg tablet RxNorm: 761804 1 Tablet(s) PO BID 07/201410/12/2015 Inactive Mobic 15 mg tablet RxNorm: 085574 1 Tablet(s) PO daily 201407/21/2015 Inactive tramadol ER 100 mg tablet,extended release 24 hr RxNorm: 544054 1 Tablet(s) PO Q6 as needed 05/13/2015 No Stop Date Active cyanocobalamin (vit B-12) 1,000 mcg/mL injection solution RxNorm: 921703 1 Milliliter(s) Inj 05/12/2015 05/12/2015 Inactive Topamax 25 mg tablet RxNorm: 023626 1 Tablet(s) PO BID (start at one pill at bedtime x 1week then twice daily thereafter) 05/12/2015 09/02/2015 Inactive cyanocobalamin (vit B-12) 1,000 mcg/mL injection kit RxNorm: 221204 kit Inj 04/30/2015 04/30/2015 Inactive cyanocobalamin (vit B-12) 1,000 mcg/mL injection solution RxNorm: 479394 Milliliter(s) Inj 04/16/2015 04/16/2015 Inactive levothyroxine 150 mcg tablet RxNorm: 491003 1 Tablet(s) PO daily 04/08/2015 07/21/2015 Inactive cyanocobalamin (vit B-12) 1,000 mcg/mL injection solution RxNorm: 128364 Milliliter(s) 1 Milliliter(s) Inj [id number] 04/08/2015 04/10/2016 Inactive Cytomel 5 mcg tablet RxNorm: 947238 1 Tablet(s) PO BID 201410/12/2015 Inactive Cytomel 5 mcg tablet RxNorm: 180109 1 Tablet(s) PO BID 201404/07/2015 Inactive Cytomel 5 mcg tablet RxNorm: 091195 1 Tablet(s) PO BID 201404/06/2015 Inactive cyanocobalamin (vit B-12) 1,000 mcg/mL injection solution RxNorm: 510783 Milliliter(s) Inj 04/02/2015 04/02/2015 Inactive cyanocobalamin (vit B-12) 1,000 mcg/mL injection solution RxNorm: 043111 Milliliter(s) Inj 03/18/2015 03/18/2015 Inactive cyanocobalamin (vit B-12) 1,000 mcg/mL injection solution RxNorm: 004794 Milliliter(s) 1 Milliliter(s) Inj D8uamen 03/18/2015 04/07/2015 Inactive cyanocobalamin (vit B-12) 1,000 mcg/mL injection solution RxNorm: 901867 1 Milliliter(s) Inj Y4swmcu 03/16/201503/17 Inactive cyanocobalamin (vit B-12) 1,000 mcg/mL injection solution RxNorm: 531083 Milliliter(s) Inj 03/03/2015 03/03/2015 Inactive cyanocobalamin (vit B-12) 1,000 mcg/mL injection solution RxNorm: 609848 Milliliter(s) Inj 02/18/2015 02/18/2015 Inactive cyanocobalamin (vit B-12) 1,000 mcg/mL injection solution RxNorm: 223691 Milliliter(s) Inj 02/04/2015 02/04/2015 Inactive cyanocobalamin (vit B-12) 1,000 mcg/mL injection solution RxNorm: 658363 Milliliter(s) Inj 01/22/2015 01/22/2015 Inactive Lac-Hydrin Five 5 % lotion RxNorm: 199239 1 TOP daily 201403/13/2015 Inactive Lac-Hydrin Five 5 % lotion RxNorm: 027975 1 TOP daily 201401/12/2015 Inactive cyanocobalamin (vit B-12) 1,000 mcg/mL injection solution RxNorm: 883172 Milliliter(s) Inj 01/08/2015 01/08/2015 Inactive cyanocobalamin (vit B-12) 1,000 mcg/mL injection solution RxNorm: 280657 Milliliter(s) Inj 12/25/2014 12/25/2014 Inactive levothyroxine 150 mcg tablet RxNorm: 716210 1 Tablet(s) PO daily 12/24/2014 04/07/2015 Inactive tramadol 50 mg tablet RxNorm: 779808 1-2 Tablet(s) PO Q6 as needed 12/17/2014 05/12/2015 Inactive alprazolam 0.25 mg tablet RxNorm: 636817 1 Tablet(s) PO BID 06/201404/15/2015 Inactive Pradaxa 150 mg capsule RxNorm: 6283742 1 Capsule(s) PO BID No Stop Date Active metoprolol tartrate 50 mg tablet RxNorm: 076551 1/2 Tablet(s) PO BID 12/16/2014 09/13/2016 Inactive buspirone 15 mg tablet RxNorm: 208024 1 Tablet(s) PO BID 201409/13/2015 Inactive cyanocobalamin (vit B-12) 1,000 mcg/mL injection solution RxNorm: 991370 1 Milliliter(s) Inj O3ykurl 12/16/201403/15 Inactive cyanocobalamin (vit B-12) 1,000 mcg/mL injection solution RxNorm: 249053 1 Milliliter(s) Inj F0yowtq 12/16/201412/15 Inactive sucralfate 1 gram tablet RxNorm: 711696 Tablet(s) PO QID 201412/10/2015 Inactive cyanocobalamin (vit B-12) 1,000 mcg/mL injection solution RxNorm: 230355 Milliliter(s) Inj 12/10/2014 12/10/2014 Inactive cyanocobalamin (vit B-12) 1,000 mcg/mL injection solution RxNorm: 626737 Milliliter(s) Inj 11/26/2014 11/26/2014 Inactive Zoloft 50 mg tablet RxNorm: 591395 1 Tablet(s) PO daily 201406/21/2015 Inactive Zoloft 50 mg tablet RxNorm: 265374 1 Tablet(s) PO daily 201411/23/2014 Inactive cyanocobalamin (vit B-12) 1,000 mcg/mL injection kit RxNorm: 184134 Milliliter(s) Inj 11/12/2014 11/12/2014 Inactive cyanocobalamin (vit B-12) 1,000 mcg/mL injection solution RxNorm: 822748 Milliliter(s) Inj 10/28/2014 10/28/2014 Inactive [SAVINGS FOR NON-COVERED DRUGS -- BIN:[id number], PCN: [id number], Group: [id number], ID# [id number], Questions: [phone]. THIS IS NOT INSURANCE.] promethazine oral RxNorm: 8745 oral No Start Date Active digoxin 125 mcg tablet RxNorm: 421187 Tablet(s) PO every other day No Start Date Active furosemide 40 mg tablet RxNorm: 576938 1 Tablet(s) PO daily No Start Date Active Vitamin D3 5,000 unit tablet RxNorm: 278505 1 Tablet(s) PO daily No Start Date Active erythromycin 250 mg capsule,delayed release RxNorm: 161638 1 Capsule(s) PO AC No Start Date Active Protonix 40 mg tablet,delayed release RxNorm: 312265 1 Tablet(s) PO BID No Start Date Active Cozaar 100 mg tablet RxNorm: 098576 1 Tablet(s) PO daily No Start Date 09/13/2016 Inactive sucralfate 1 gram tablet RxNorm: 968269 Tablet(s) PO QID No Start Date 12/15/2014 Inactive amiodarone 200 mg tablet RxNorm: 385962 2 Tablet(s) PO daily No Start Date 10/13/2015 Inactive buspirone 15 mg tablet RxNorm: 504896 1 Tablet(s) PO daily No Start Date 12/15/2014 Inactive potassium chloride ER 20 mEq tablet,extended release RxNorm: 994455 1 Tablet(s) PO daily No Start Date 10/12/2015 Inactive Prilosec 40 mg capsule,delayed release RxNorm: 106192 1 Capsule(s) PO daily No Start Date 09/02/2015 Inactive Whitetop 3 capsule RxNorm : Capsule(s) PO No Start Date 10/12/2015 Inactive alprazolam 0.25 mg tablet RxNorm: 470647 Tablet(s) PO QHS No Start Date 12/16/2014 Inactive levothyroxine 125 mcg tablet RxNorm: 671040 1 Tablet(s) PO daily No Start Date 12/23/2014 Inactive liothyronine 5 mcg tablet RxNorm: 763802 1 Tablet(s) PO BID No Start Date 07/21/2015 Inactive Mobic 15 mg tablet RxNorm: 131646 Tablet(s) PO daily No Start Date 05/19/2015 Inactive Norvasc 5 mg tablet RxNorm: 097837 1 Tablet(s) PO daily No Start Date 09/16/2015 Inactive Zofran 4 mg tablet RxNorm: 828955 1 Tablet(s) PO daily as needed No Start Date 05/19/2015 Inactive Tamiflu 75 mg capsule RxNorm: 237923 1 Capsule(s) PO BID No Start Date 07/23/2017 Inactive tramadol 50 mg tablet RxNorm: 251752 1 Tablet(s) PO daily as needed No Start Date 12/16/2014 Inactive amiodarone 200 mg tablet RxNorm: 916470 1 Tablet(s) PO daily No Start Date 10/12/2015 Inactive Zofran ODT 4 mg disintegrating tablet RxNorm: 586288 1 Tablet(s) PO TID as needed No Start Date 05/02/2017 Inactive meclizine 25 mg tablet RxNorm: 685513 Tablet(s) PO as needed No Start Date 05/24/2016 Inactive Pradaxa 150 mg capsule RxNorm: 8246131 1 Capsule(s) PO daily No Start Date 12/15/2014 Inactive metoprolol tartrate 50 mg tablet RxNorm: 630385 1/2 Tablet(s) PO No Start Date 12/15/2014 Inactive Aricept 10 mg tablet RxNorm: 238116 Tablet(s) PO daily No Start Date 05/19/2015 Inactive Calmoseptine 0.44 %-20.6 % topical ointment RxNorm: 110577 1 Application TOP BID and as needed to sore on buttocks No Start Date 09/06/2016 Inactive Zithromax Z-Henrique 250 mg tablet RxNorm: 549791 1 Tablet(s) PO UD No Start Date 11/09/2015 Inactive zpack x 1 Medication Administered Medication Codes Instructions Start Date Status cyanocobalamin (vit B-12) 1,000 mcg/mL injection solution RxNorm: 799610 Milliliter 07/06/2017 No longer Active Kenalog 40 mg/mL suspension for injection RxNorm: 0213926 1Milliliter 06/20/2017 No longer Active cyanocobalamin (vit B-12) 1,000 mcg/mL injection solution RxNorm: 973277 [facility] 06/20/2017 No longer Active cyanocobalamin (vit B-12) 1,000 mcg/mL injection solution RxNorm: 428880 [facility] 06/05/2017 No longer Active cyanocobalamin (vit B-12) 1,000 mcg/mL injection solution RxNorm: 254409 [facility] 05/25/2017 No longer Active cyanocobalamin (vit B-12) 1,000 mcg/mL injection solution RxNorm: 723118 [facility] 05/16/2017 No longer Active cyanocobalamin (vit B-12) 1,000 mcg/mL injection solution RxNorm: 656648 1Milliliter 05/01/2017 No longer Active cyanocobalamin (vit B-12) 1,000 mcg/mL injection solution RxNorm: 251083 [facility] 04/18/2017 No longer Active cyanocobalamin (vit B-12) 1,000 mcg/mL injection solution RxNorm: 387696 [facility] 04/06/2017 No longer Active cyanocobalamin (vit B-12) 1,000 mcg/mL injection solution RxNorm: 669762 [facility] 03/22/2017 No longer Active cyanocobalamin (vit B-12) 1,000 mcg/mL injection solution RxNorm: 637019 [facility] 03/09/2017 No longer Active cyanocobalamin (vit B-12) 1,000 mcg/mL injection solution RxNorm: 552839 [facility] 02/23/2017 No longer Active cyanocobalamin (vit B-12) 1,000 mcg/mL injection solution RxNorm: 290587 [facility] 02/09/2017 No longer Active cyanocobalamin (vit B-12) 1,000 mcg/mL injection solution RxNorm: 741721 [facility] 01/23/2017 No longer Active cyanocobalamin (vit B-12) 1,000 mcg/mL injection solution RxNorm: 443861 [facility] 01/10/2017 No longer Active cyanocobalamin (vit B-12) 1,000 mcg/mL injection solution RxNorm: 574321 1Milliliter 12/28/2016 No longer Active cyanocobalamin (vit B-12) 1,000 mcg/mL injection solution RxNorm: 052333 [facility] 12/14/2016 No longer Active cyanocobalamin (vit B-12) 1,000 mcg/mL injection solution RxNorm: 445183 [facility] 11/24/2016 No longer Active cyanocobalamin (vit B-12) 1,000 mcg/mL injection solution RxNorm: 495435 1[facility]iliter 11/07/2016 No longer Active cyanocobalamin (vit B-12) 1,000 mcg/mL injection solution RxNorm: 739679 [facility] 10/24/2016 No longer Active cyanocobalamin (vit B-12) 1,000 mcg/mL injection solution RxNorm: 402254 1[facility]iliter 09/29/2016 No longer Active cyanocobalamin (vit B-12) 1,000 mcg/mL injection solution RxNorm: 045149 [facility] 08/29/2016 No longer Active cyanocobalamin (vit B-12) 1,000 mcg/mL injection solution RxNorm: 294948 [facility] 08/04/2016 No longer Active cyanocobalamin (vit B-12) 1,000 mcg/mL injection solution RxNorm: 811046 [facility] 07/21/2016 No longer Active cyanocobalamin (vit B-12) 1,000 mcg/mL injection solution RxNorm: 625624 1[facility]iliter 07/05/2016 No longer Active cyanocobalamin (vit B-12) 1,000 mcg/mL injection solution RxNorm: 667658 1Milliliter 06/22/2016 No longer Active cyanocobalamin (vit B-12) 1,000 mcg/mL injection solution RxNorm: 023318 [facility] 06/09/2016 No longer Active cyanocobalamin (vit B-12) 1,000 mcg/mL injection solution RxNorm: 262924 1Milliliter 05/25/2016 No longer Active cyanocobalamin (vit B-12) 1,000 mcg/mL injection solution RxNorm: 974942 [facility] 05/10/2016 No longer Active cyanocobalamin (vit B-12) 1,000 mcg/mL injection solution RxNorm: 062212 [facility] 04/26/2016 No longer Active cyanocobalamin (vit B-12) 1,000 mcg/mL injection solution RxNorm: 075064 [facility] 04/11/2016 No longer Active cyanocobalamin (vit B-12) 1,000 mcg/mL injection solution RxNorm: 057319 [facility] 03/31/2016 No longer Active cyanocobalamin (vit B-12) 1,000 mcg/mL injection solution RxNorm: 524647 1Milliliter 03/15/2016 No longer Active cyanocobalamin (vit B-12) 1,000 mcg/mL injection solution RxNorm: 947990 [facility] 02/25/2016 No longer Active cyanocobalamin (vit B-12) 1,000 mcg/mL injection solution RxNorm: 455835 1Milliliter 02/02/2016 No longer Active cyanocobalamin (vit B-12) 1,000 mcg/mL injection solution RxNorm: 119247 [facility] 01/18/2016 No longer Active cyanocobalamin (vit B-12) 1,000 mcg/mL injection solution RxNorm: 983227 [facility] 12/29/2015 No longer Active cyanocobalamin (vit B-12) 1,000 mcg/mL injection solution RxNorm: 254499 [facility] 12/08/2015 No longer Active cyanocobalamin (vit B-12) 1,000 mcg/mL injection solution RxNorm: 978817 [facility] 11/23/2015 No longer Active cyanocobalamin (vit B-12) 1,000 mcg/mL injection solution RxNorm: 530514 [facility] 11/11/2015 No longer Active cyanocobalamin (vit B-12) 1,000 mcg/mL injection solution RxNorm: 980769 1Milliliter 10/29/2015 No longer Active cyanocobalamin (vit B-12) 1,000 mcg/mL injection solution RxNorm: 948077 1Milliliter 10/12/2015 No longer Active cyanocobalamin (vit B-12) 1,000 mcg/mL injection solution RxNorm: 166815 1Milliliter 09/29/2015 No longer Active cyanocobalamin (vit B-12) 1,000 mcg/mL injection solution RxNorm: 986794 1Milliliter 09/17/2015 No longer Active cyanocobalamin (vit B-12) 1,000 mcg/mL injection solution RxNorm: 511032 1Milliliter 09/03/2015 No longer Active cyanocobalamin (vit B-12) 1,000 mcg/mL injection solution RxNorm: 583990 [facility] 08/17/2015 No longer Active cyanocobalamin (vit B-12) 1,000 mcg/mL injection solution RxNorm: 284882 [facility] 08/06/2015 No longer Active cyanocobalamin (vit B-12) 1,000 mcg/mL injection solution RxNorm: 043763 [facility] 07/22/2015 No longer Active cyanocobalamin (vit B-12) 1,000 mcg/mL injection solution RxNorm: 646794 [facility] 07/08/2015 No longer Active cyanocobalamin (vit B-12) 1,000 mcg/mL injection solution RxNorm: 159582 [facility] 06/23/2015 No longer Active cyanocobalamin (vit B-12) 1,000 mcg/mL injection solution RxNorm: 060847 1Milliliter 06/08/2015 No longer Active cyanocobalamin (vit B-12) 1,000 mcg/mL injection solution RxNorm: 290362 [facility] 05/27/2015 No longer Active cyanocobalamin (vit B-12) 1,000 mcg/mL injection solution RxNorm: 906073 1[facility]iliter 05/12/2015 No longer Active cyanocobalamin (vit B-12) 1,000 mcg/mL injection kit RxNorm : 356600 kit 04/30/2015 No longer Active cyanocobalamin (vit B-12) 1,000 mcg/mL injection solution RxNorm: 379688 [facility] 04/16/2015 No longer Active cyanocobalamin (vit B-12) 1,000 mcg/mL injection solution RxNorm: 885870 [facility] 04/02/2015 No longer Active cyanocobalamin (vit B-12) 1,000 mcg/mL injection solution RxNorm: 288172 [facility] 03/18/2015 No longer Active cyanocobalamin (vit B-12) 1,000 mcg/mL injection solution RxNorm: 136133 [facility] 03/03/2015 No longer Active cyanocobalamin (vit B-12) 1,000 mcg/mL injection solution RxNorm: 729014 [facility] 02/18/2015 No longer Active cyanocobalamin (vit B-12) 1,000 mcg/mL injection solution RxNorm: 367777 [facility] 02/04/2015 No longer Active cyanocobalamin (vit B-12) 1,000 mcg/mL injection solution RxNorm: 217976 [facility] 01/22/2015 No longer Active cyanocobalamin (vit B-12) 1,000 mcg/mL injection solution RxNorm: 705112 [facility] 01/08/2015 No longer Active cyanocobalamin (vit B-12) 1,000 mcg/mL injection solution RxNorm: 554190 [facility] 12/25/2014 No longer Active cyanocobalamin (vit B-12) 1,000 mcg/mL injection solution RxNorm: 784637 [facility] 12/10/2014 No longer Active cyanocobalamin (vit B-12) 1,000 mcg/mL injection solution RxNorm: 596110 [facility] 11/26/2014 No longer Active cyanocobalamin (vit B-12) 1,000 mcg/mL injection kit RxNorm : 730282 [facility] 11/12/2014 No longer Active cyanocobalamin (vit B-12) 1,000 mcg/mL injection solution RxNorm: 909764 [facility] 10/28/2014 No longer Active Immunizations Vaccine [...] Observation Code Item Item Code Result Date %Hba1C Gfv589 % HbA1c 55248-5 6.1 % 01/23/2017 %Hba1C Ncn449 Gluc Ave 128 mg/dL 01/23/2017 Comp Metabolic Hwm877 NA 141 mEq/L 01/23/2017 Comp Metabolic Dpw316 K 4.5 mEq/L 01/23/2017 Comp Metabolic Asn272 CL 107 mEq/L 01/23/2017 Comp Metabolic Gmi984 CO2 21.0 mEq/L 01/23/2017 Comp Metabolic Rwj367 ANION GAP 18 01/23/2017 Comp Metabolic Lpg311 GLUCOSE 138 mg/dL 01/23/2017 Comp Metabolic Nbm950 Creat 1.0 mg/dL 01/23/2017 Comp Metabolic Phd086 eGFR 56 ml/min/1.73m2 01/23/2017 Comp Metabolic Ydv708 BUN 26 mg/dL 01/23/2017 Comp Metabolic Gak036 B/C Ratio 25.7 Ratio 01/23/2017 Comp Metabolic Lpj295 CALCIUM 9.0 mg/dL 01/23/2017 Comp Metabolic Xnx798 ALK PHOS 37 U/L 01/23/2017 Comp Metabolic Hwc708 AST(SGOT) 20 U/L 01/23/2017 Comp Metabolic Syr945 ALT(SGPT) 25 U/L 01/23/2017 Comp Metabolic Oaf840 BILI T 0.9 mg/dL 01/23/2017 Comp Metabolic Rvg079 ALBUMIN 3.8 g/dL 01/23/2017 Comp Metabolic Zji942 TPRO 6.5 g/dL 01/23/2017 Comp Metabolic Dnk379 GLOB 2.7 g/dL 01/23/2017 Comp Metabolic Gxc649 A/G Ratio 1.4 Ratio 01/23/2017 Comp Metabolic Sdt494 Osmo 288 mOsmo 01/23/2017 Tsh Ord6 hTSH II 1.68 uIU/mL 01/23/2017 Free T4 Nto163 FREE T4 1.05 ng/dL 01/23/2017 Culture Urine [id number] URINE CULTURE SEE NOTES 11/10/2016 Culture Urine [id number] Continued Results 11/10/2016 Urine Culture Ucult Complete [...] 91.7 fl 09/07/2016 Cbc With Differential Ord2 Liberty% 9.8 % 09/07/2016 Cbc With Differential Ord2 MCH 30.0 pg 09/07/2016 Cbc With Differential Ord2 MCHC 32.7 pg 09/07/2016 Cbc With Differential Ord2 Eos% 2.0 % 09/07/2016 Cbc With Differential Ord2 Baso% 0.6 % 09/07/2016 Cbc With Differential Ord2 PLT 198 K/ul 09/07/2016 Cbc With Differential Ord2 Neut ABS# 3.85 K/ul 09/07/2016 Cbc With Differential Ord2 RDW 14.5 % 09/07/2016 Cbc With Differential Ord2 Lymph ABS# 1.75 K/ul 09/07/2016 Cbc With Differential Ord2 Liberty ABS# 0.6 K/ul 09/07/2016 Cbc With Differential Ord2 Eos ABS# 0.1 K/ul 09/07/2016 Cbc With Differential Ord2 Baso ABS# 0.0 K/ul 09/07/2016 Tsh Ord6 hTSH II 1.41 uIU/mL 09/07/2016 Free T4 Ven003 FREE T4 0.99 ng/dL 09/07/2016 Culture Urine [id number] URINE CULTURE SEE NOTES 06/27/2016 Hepatic Qse672 ALBUMIN 4.2 g/dL 06/22/2016 Hepatic Thv880 TPRO 7.0 g/dL 06/22/2016 Hepatic Xwn663 GLOB 2.8 g/dL 06/22/2016 Hepatic Kyw515 A/G Ratio 1.5 Ratio 06/22/2016 Hepatic Yln419 ALK PHOS 54 U/L 06/22/2016 Hepatic Qts987 ALT(SGPT) 30 U/L 06/22/2016 Hepatic Pxe089 AST(SGOT) 24 U/L 06/22/2016 Hepatic Rbh766 BILI T 1.1 mg/dL 06/22/2016 Hepatic Umr130 BILI D 0.2 mg/dL 06/22/2016 Hepatic Xez369 BILI I 0.9 mg/dL 06/22/2016 Lipid Ord30 CHOL 196 mg/dL 06/22/2016 Lipid Ord30 HDL 63.0 mg/dl 06/22/2016 Lipid Ord30 TRIG 154 mg/dL 06/22/2016 Lipid Ord30 LDL 102 mg/dL 06/22/2016 Lipid Ord30 C/HDL 3.1 Ratio 06/22/2016 Free T4 Kym731 FREE T4 1.09 ng/dL 06/14/2016 Tsh Ord6 hTSH II 1.26 uIU/mL 06/14/2016 Comp Metabolic Qpr448 NA 139 mEq/L 06/14/2016 Comp Metabolic Bog029 K 4.6 mEq/L 06/14/2016 Comp Metabolic Knh830 CL 108 mEq/L 06/14/2016 Comp Metabolic Fza931 CO2 22.0 mEq/L 06/14/2016 Comp Metabolic Oeg997 ANION GAP 14 06/14/2016 Comp Metabolic Lgd582 GLUCOSE 114 mg/dL 06/14/2016 Comp Metabolic Jdw614 Creat 1.2 mg/dL 06/14/2016 Comp Metabolic Qru771 eGFR 48 ml/min/1.73m2 06/14/2016 Comp Metabolic Uyq181 BUN 24 mg/dL 06/14/2016 Comp Metabolic Loy051 B/C Ratio 20.9 Ratio 06/14/2016 Comp Metabolic Qgt003 CALCIUM 9.9 mg/dL 06/14/2016 Comp Metabolic Zmv217 ALK PHOS 47 U/L 06/14/2016 Comp Metabolic Ofa605 AST(SGOT) 28 U/L 06/14/2016 Comp Metabolic Hnx161 ALT(SGPT) 32 U/L 06/14/2016 Comp Metabolic Quu108 BILI T 0.9 mg/dL 06/14/2016 Comp Metabolic Vjk269 ALBUMIN 4.1 g/dL 06/14/2016 Comp Metabolic Irk596 TPRO 6.9 g/dL 06/14/2016 Comp Metabolic Rhg846 GLOB 2.8 g/dL 06/14/2016 Comp Metabolic Vjm381 A/G Ratio 1.5 Ratio 06/14/2016 Comp Metabolic Nlz289 Osmo 282 mOsmo 06/14/2016 Free T4 Qjy547 FREE T4 1.23 ng/dL 02/02/2016 Hepatic Cdi057 ALBUMIN 4.0 g/dL 02/02/2016 Hepatic Uan084 TPRO 7.0 g/dL 02/02/2016 Hepatic Axn674 GLOB 3.0 g/dL 02/02/2016 Hepatic Kri380 A/G Ratio 1.3 Ratio 02/02/2016 Hepatic Sgx601 ALK PHOS 57 U/L 02/02/2016 Hepatic Sxa047 ALT(SGPT) 62 U/L 02/02/2016 Hepatic Mvz738 AST(SGOT) 54 U/L 02/02/2016 Hepatic Efh848 BILI T 0.8 mg/dL 02/02/2016 Hepatic Oth861 BILI D 0.2 mg/dL 02/02/2016 Hepatic Lql234 BILI I 0.6 mg/dL 02/02/2016 Digoxin Ord9 DIGOXIN 0.7 NG/ML 02/02/2016 Tsh Ord6 hTSH II 0.28 uIU/mL 02/02/2016 Urine Culture Ucult Complete No Growth Day 2 11/25/2015 Urine Culture Ucult Preliminary No Growth Day 1 11/25/2015 Hepatic Oxm455 ALBUMIN 3.9 g/dL 11/11/2015 Hepatic Ndf471 TPRO 7.0 g/dL 11/11/2015 Hepatic Fzd105 GLOB 3.1 g/dL 11/11/2015 Hepatic Wbh181 A/G Ratio 1.3 Ratio 11/11/2015 Hepatic Qtu470 ALK PHOS 63 U/L 11/11/2015 Hepatic Smy375 ALT(SGPT) 107 U/L 11/11/2015 Hepatic Jsg695 AST(SGOT) 101 U/L 11/11/2015 Hepatic Fvm296 BILI T 0.6 mg/dL 11/11/2015 Hepatic Nkd124 BILI D 0.1 mg/dL 11/11/2015 Hepatic Xjh335 BILI I 0.5 mg/dL 11/11/2015 Comp Metabolic Oyx715 NA 138 mEq/L 10/29/2015 Comp Metabolic Ijy940 K 5.0 mEq/L 10/29/2015 Comp Metabolic Ibj585 CL 105 mEq/L 10/29/2015 Comp Metabolic Aoe809 CO2 23.0 mEq/L 10/29/2015 Comp Metabolic Arr898 ANION GAP 15 10/29/2015 Comp Metabolic Avz727 GLUCOSE 105 mg/dL 10/29/2015 Comp Metabolic Wao544 Creat 1.0 mg/dL 10/29/2015 Comp Metabolic Ihd652 eGFR 55 ml/min/1.73m2 10/29/2015 Comp Metabolic Dnb088 BUN 20 mg/dL 10/29/2015 Comp Metabolic Wjn442 B/C Ratio 19.4 Ratio 10/29/2015 Comp Metabolic Bsp414 CALCIUM 8.8 mg/dL 10/29/2015 Comp Metabolic Nsh252 ALK PHOS 56 U/L 10/29/2015 Comp Metabolic Zaa448 AST(SGOT) 66 U/L 10/29/2015 Comp Metabolic Llu471 ALT(SGPT) 78 U/L 10/29/2015 Comp Metabolic Lhx372 BILI T 0.7 mg/dL 10/29/2015 Comp Metabolic Okt611 ALBUMIN 3.6 g/dL 10/29/2015 Comp Metabolic Ayq432 TPRO 6.6 g/dL 10/29/2015 Comp Metabolic Ixm936 GLOB 3.0 g/dL 10/29/2015 Comp Metabolic Qah238 A/G Ratio 1.2 Ratio 10/29/2015 Comp Metabolic Uft025 Osmo 279 mOsmo 10/29/2015 Comp Metabolic Paa013 NA 136 mEq/L 09/03/2015 Comp Metabolic Jky613 K 4.4 mEq/L 09/03/2015 Comp Metabolic Fgk731 CL 103 mEq/L 09/03/2015 Comp Metabolic Ian972 CO2 24.0 mEq/L 09/03/2015 Comp Metabolic Cua486 ANION GAP 13 09/03/2015 Comp Metabolic Pna732 GLUCOSE 87 mg/dL 09/03/2015 Comp Metabolic Jwh197 Creat 1.1 mg/dL 09/03/2015 Comp Metabolic Hov204 eGFR 53 ml/min/1.73m2 09/03/2015 Comp Metabolic Gqr643 BUN 17 mg/dL 09/03/2015 Comp Metabolic Wfp849 B/C Ratio 16.2 Ratio 09/03/2015 Comp Metabolic Lvn432 CALCIUM 9.0 mg/dL 09/03/2015 Comp Metabolic Ovx734 ALK PHOS 55 U/L 09/03/2015 Comp Metabolic Tei867 AST(SGOT) 83 U/L 09/03/2015 Comp Metabolic Obx096 ALT(SGPT) 126 U/L 09/03/2015 Comp Metabolic Uon426 BILI T 0.9 mg/dL 09/03/2015 Comp Metabolic Vrr308 ALBUMIN 3.9 g/dL 09/03/2015 Comp Metabolic Tku030 TPRO 6.8 g/dL 09/03/2015 Comp Metabolic Shz504 GLOB 2.9 g/dL 09/03/2015 Comp Metabolic Dtc190 A/G Ratio 1.4 Ratio 09/03/2015 Comp Metabolic Xdh844 Osmo 273 mOsmo 09/03/2015 Total T3 Ord42 TT3 0.6 ng/ml 07/09/2015 Tsh Ord6 hTSH II 1.62 uIU/mL 07/09/2015 Tsh Ord6 hTSH II 5.95 uIU/mL 04/02/2015 Free T4 Lrr614 FREE T4 1.23 ng/dL 04/02/2015 Total T3 Ord42 TT3 0.5 ng/ml 04/02/2015 Review of Systems System Result Effective [...] Procedure Codes Date THER/PROPH/DIAG INJ SC/IM CPT-4: 34012 07/06/2017 THER/PROPH/DIAG INJ SC/IM CPT-4: 46483 06/20/2017 TRIAMCINOLONE ACET INJ NOS CPT-4: J3301 06/20/2017 PPPS, SUBSEQ VISIT CPT -4: G0439 06/05/2017 THER/PROPH/DIAG INJ SC/IM CPT-4: 52271 06/05/2017 THER/PROPH/DIAG INJ SC/IM CPT-4: 80271 05/25/2017 VITAMIN B12 INJECTION CPT-4: J3420 05/25/2017 THER/PROPH/DIAG INJ SC/IM CPT-4: 36585 05/16/2017 THER/PROPH/DIAG INJ SC/IM CPT-4: 81040 05/01/2017 THER/PROPH/DIAG INJ SC/IM CPT-4: 43443 04/18/2017 THER/PROPH/DIAG INJ SC/IM CPT-4: 62701 04/06/2017 ADMIN INFLUENZA VIRUS VAC CPT-4: G0008 03/22/2017 FLU VACC PRSV FREE INC ANTIG CPT-4: 38339 03/22/2017 THER/PROPH/DIAG INJ SC/IM CPT-4: 63396 03/09/2017 THER/PROPH/DIAG INJ SC/IM CPT-4: 06777 02/23/2017 THER/PROPH/DIAG INJ SC/IM CPT-4: 99355 02/09/2017 THER/PROPH/DIAG INJ SC/IM CPT-4: 38671 01/23/2017 THER/PROPH/DIAG INJ SC/IM CPT-4: 28307 01/10/2017 THER/PROPH/DIAG INJ SC/IM CPT-4: 75828 12/28/2016 THER/PROPH/DIAG INJ SC/IM CPT-4: 83606 12/14/2016 THER/PROPH/DIAG INJ SC/IM CPT-4: 95641 11/24/2016 URINALYSIS NONAUTO W/O SCOPE CPT-4: 57349 11/07/2016 THER/PROPH/DIAG INJ SC/IM CPT-4: 45573 11/07/2016 THER/PROPH/DIAG INJ SC/IM CPT-4: 24199 10/24/2016 THER/PROPH/DIAG INJ SC/IM CPT-4: 83854 09/29/2016 THER/PROPH/DIAG INJ SC/IM CPT-4: 05383 08/29/2016 THER/PROPH/DIAG INJ SC/IM CPT-4: 70036 08/04/2016 THER/PROPH/DIAG INJ SC/IM CPT-4: 94433 07/21/2016 THER/PROPH/DIAG INJ SC/IM CPT-4: 23791 07/05/2016 THER/PROPH/DIAG INJ SC/IM CPT-4: 83284 06/22/2016 URINALYSIS NONAUTO W/O SCOPE CPT-4: 44108 06/22/2016 THER/PROPH/DIAG INJ SC/IM CPT-4: 23510 06/09/2016 PPPS, SUBSEQ VISIT CPT -4: G0439 05/30/2016 ADMIN PNEUMOCOCCAL VACCINE SNOMED CT: 17105428 CPT-4: G0009 05/25/2016 Pneumococcal Polysaccharide Vaccine, 23-Valent, Ad CPT-4: 47115 05/25/2016 THER/PROPH/DIAG INJ SC/IM CPT-4: 45229 05/25/2016 THER/PROPH/DIAG INJ SC/IM CPT-4: 02597 05/10/2016 TRIAMCINOLONE ACET INJ NOS CPT-4: J3301 04/26/2016 VITAMIN B12 INJECTION CPT-4: J3420 04/26/2016 THER/PROPH/DIAG INJ SC/IM CPT-4: 48989 04/11/2016 THER/PROPH/DIAG INJ SC/IM CPT-4: 50118 03/31/2016 ADMIN INFLUENZA VIRUS VAC CPT-4: G0008 03/15/2016 FLU VACC 4 STEPHANIE [address] YRS [address] IM SNOMED CT: 69213739 CPT-4: 97769 03/15/2016 THER/PROPH/DIAG INJ SC/IM CPT-4: 38949 02/25/2016 THER/PROPH/DIAG INJ SC/IM CPT-4: 28587 02/02/2016 THER/PROPH/DIAG INJ SC/IM CPT-4: 73017 01/18/2016 VITAMIN B12 INJECTION CPT-4: J3420 12/29/2015 THER/PROPH/DIAG INJ SC/IM CPT-4: 99501 12/29/2015 THER/PROPH/DIAG INJ SC/IM CPT-4: 27741 12/08/2015 THER/PROPH/DIAG INJ SC/IM CPT-4: 55161 11/23/2015 URINALYSIS NONAUTO W/O SCOPE CPT-4: 25374 11/23/2015 THER/PROPH/DIAG INJ SC/IM CPT-4: 88398 11/11/2015 THER/PROPH/DIAG INJ SC/IM CPT-4: 08630 10/29/2015 THER/PROPH/DIAG INJ SC/IM CPT-4: 84363 10/12/2015 VITAMIN B12 INJECTION CPT-4: J3420 10/12/2015 THER/PROPH/DIAG INJ SC/IM CPT-4: 86248 09/29/2015 THER/PROPH/DIAG INJ SC/IM CPT-4: 95871 09/17/2015 THER/PROPH/DIAG INJ SC/IM CPT-4: 13549 09/03/2015 THER/PROPH/DIAG INJ SC/IM CPT-4: 30575 08/17/2015 THER/PROPH/DIAG INJ SC/IM CPT-4: 32840 08/06/2015 THER/PROPH/DIAG INJ SC/IM CPT-4: 13135 07/22/2015 THER/PROPH/DIAG INJ SC/IM CPT-4: 54914 07/08/2015 THER/PROPH/DIAG INJ SC/IM CPT-4: 50284 06/23/2015 THER/PROPH/DIAG INJ SC/IM CPT-4: 96921 06/08/2015 THER/PROPH/DIAG INJ SC/IM CPT-4: 31853 05/27/2015 DESTRUCT PREMALG LESION CPT-4: 16513 05/19/2015 DESTRUCT PREMALG LES 2-14 CPT-4: 44875 05/19/2015 THER/PROPH/DIAG INJ SC/IM CPT-4: 60251 05/12/2015 VITAMIN B12 INJECTION CPT-4: J3420 05/12/2015 THER/PROPH/DIAG INJ SC/IM CPT-4: 51030 04/30/2015 VITAMIN B12 INJECTION CPT-4: J3420 04/30/2015 THER/PROPH/DIAG INJ SC/IM CPT-4: 69485 04/16/2015 THER/PROPH/DIAG INJ SC/IM CPT-4: 29730 04/02/2015 VITAMIN B12 INJECTION CPT-4: J3420 04/02/2015 THER/PROPH/DIAG INJ SC/IM CPT-4: 45451 03/18/2015 THER/PROPH/DIAG INJ SC/IM CPT-4: 78891 03/03/2015 THER/PROPH/DIAG INJ SC/IM CPT-4: 85037 02/18/2015 THER/PROPH/DIAG INJ SC/IM CPT-4: 24227 02/04/2015 VITAMIN B12 INJECTION CPT-4: J3420 02/04/2015 THER/PROPH/DIAG INJ SC/IM CPT-4: 46590 01/22/2015 THER/PROPH/DIAG INJ SC/IM CPT-4: 32162 01/08/2015 VITAMIN B12 INJECTION CPT-4: J3420 01/08/2015 THER/PROPH/DIAG INJ SC/IM CPT-4: 28602 12/25/2014 VITAMIN B12 INJECTION CPT-4: J3420 12/25/2014 THER/PROPH/DIAG INJ SC/IM CPT-4: 57181 12/10/2014 VITAMIN B12 INJECTION CPT-4: J3420 12/10/2014 THER/PROPH/DIAG INJ SC/IM CPT-4: 92431 11/26/2014 VITAMIN B12 INJECTION CPT-4: J3420 11/26/2014 THER/PROPH/DIAG INJ SC/IM CPT-4: 98484 11/12/2014 VITAMIN B12 INJECTION CPT-4: J3420 11/12/2014 THER/PROPH/DIAG INJ SC/IM CPT-4: 76377 10/28/2014 Vital Signs Date Vital 07/06/2017 Blood Pressure 1: 132/66 Code : 8480-6 BMI: 29.4 Code : 73523-4 Heart Rate 1 : 85 bpm Height: 5'6" SpO2: 97% Weight: 182 lbs 06/20/2017 Blood Pressure 1: 134/86 Code : 8480-6 Heart Rate 1: 90 bpm Height: SpO2: 98% Weight: 06/05/2017 BMI: 29.1 Code: 20170-8 Height: 5'6" Weight: 180 lbs 05/25/2017 Blood Pressure 1: 126/76 Code : 8480-6 BMI: 29.1 Code : 03621-0 Heart Rate 1 : 77 bpm Height: 5'6" SpO2: 97% Weight: 180 lbs 03/23/2017 Blood Pressure 1: 142/84 Code : 8480-6 BMI: 29.1 Code : 49501-1 Heart Rate 1 : 91 bpm Height: 5'6" SpO2: 97% Weight: 180 lbs 01/23/2017 Blood Pressure 1: 150/90 Code : 8480-6 BMI: 29.9 Code : 05469-4 Heart Rate 1 : 81 bpm Height: 5'6" SpO2: 97% Weight: 185 lbs 11/02/2016 Blood Pressure 1: 148/78 Code : 8480-6 BMI: 29.7 Code : 67459-0 Heart Rate 1 : 87 bpm Height: 5'6" SpO2: 97% Weight: 184 lbs 09/29/2016 Blood Pressure 1: 128/78 Code : 8480-6 BMI: 29.7 Code : 65742-5 Heart Rate 1 : 78 bpm Height: 5'6" SpO2: 98% Weight: 184 lbs 07/26/2016 Blood Pressure 1: 138/72 Code : 8480-6 BMI: 30.0 Code : 32289-2 Heart Rate 1 : 85 bpm Height: 5'6" SpO2: 97% Weight: 186 lbs 05/30/2016 Blood Pressure 1: 132/76 Code : 8480-6 BMI: 30.0 Code : 55529-5 Heart Rate 1 : 80 bpm Height: 5'6" SpO2: 98% Waist Measure (cm): 99 cm Weight: 186 lbs 05/25/2016 Blood Pressure 1: 13276 Code : 8480-6 BMI: 30.0 Code : 66468-9 Heart Rate 1 : 80 bpm Height: 5'6" SpO2: 96% Weight: 186 lbs 02/25/2016 Blood Pressure 1: 110/64 Code : 8480-6 Heart Rate 1: 82 bpm Height: SpO2: 96% Weight: 01/25/2016 Blood Pressure 1: 118/70 Code : 8480-6 BMI: 30.0 Code : 68129-4 Heart Rate 1 : 78 bpm Height: 5'6" SpO2: 97% Weight: 186 lbs 11/11/2015 Blood Pressure 1: 128/82 Code : 8480-6 BMI: 29.2 Code : 26893-1 Heart Rate 1 : 86 bpm Height: 5'6" SpO2: 96% Temperature: 36.4 (C) / 97.6 (F) Weight: 181 lbs 10/12/2015 Blood Pressure 1: 118/70 Code : 8480-6 BMI: 29.2 Code : 21576-7 Heart Rate 1 : 81 bpm Height: 5'6" SpO2: 95% Weight: 181 lbs 09/03/2015 Blood Pressure 1: 138/78 Code : 8480-6 BMI: 29.9 Code : 69897-7 Heart Rate 1 : 88 bpm Height: 5'6" SpO2: 97% Weight: 185 lbs 05/19/2015 Blood Pressure 1: 146/78 Code : 8480-6 BMI: 30.0 Code : 85548-8 Heart Rate 1 : 66 bpm Height: 5'6" SpO2: 97% Weight: 186 lbs 05/12/2015 Blood Pressure 1: 120/70 Code : 8480-6 BMI: 29.9 Code : 36518-1 Heart Rate 1 : 89 bpm Height: 5'6" SpO2: 95% Weight: 185 lbs 01/13/2015 Blood Pressure 1: 140/90 Code : 8480-6 BMI: 30.3 Code : 67013-7 Heart Rate 1 : 84 bpm Height: 5'6" SpO2: 95% Weight: 188 lbs 12/16/2014 Blood Pressure 1: 140/82 Code : 8480-6 BMI: 29.5 Code : 49401-8 Heart Rate 1 : 86 bpm Height: [...] data Encounters Encounter Performer Location Codes Date ([id number]) [id number] EST. PATIENT, LEVEL IV Diagnosis: Atrophy of thyroid (acquired)[ICD10: E03.4] Diagnosis: Cough[ICD10: R05] Diagnosis: Laceration without foreign body of left forearm, initial encounter[ ICD10: S51.812A] Diagnosis: Candidiasis of skin and nail[ICD10: B37.2] Diagnosis: Other vitamin B12 deficiency anemias[ICD10: D51.8] Diagnosis: Slow transit constipation[ICD10: K59.01] Yarely Vega MD, [facility] CPT-4: 54652 07/06/2017 [id number] EST. PATIENT, LEVEL III Diagnosis: Other vitamin B12 deficiency anemias[ICD10: D51.8] Diagnosis: Acute laryngopharyngitis[ICD10: J06.0] Diagnosis: Other allergic rhinitis[ICD10: J30.89] Brianna Vega MD, [facility] CPT-4: 42893 06/20/2017 [id number]) [id number] EST. PATIENT, LEVEL IV Diagnosis: Essential (primary) hypertension[ICD10: I10] Diagnosis: Chronic atrial fibrillation[ICD10: I48.2] Diagnosis: Atrophy of thyroid (acquired)[ICD10: E03.4] Diagnosis: 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 factor deficiency[ ICD10: D51.0] Yarely Vega MD, [facility] CPT-4: 91821 05/25/2017 ([id number]) 95550 EST. PATIENT, LEVEL IV Diagnosis: Type 2 diabetes mellitus without complications[ICD10: E11.9] Diagnosis: Atrophy of thyroid (acquired)[ICD10: E03.4] Diagnosis: Chest pain on breathing[ICD10: R07.1] Diagnosis: Chondrocostal junction syndrome [Tietze][ICD10: M94.0] Diagnosis: Other fatigue[ICD10: R53.83] Yarely Vega MD, [facility] CPT- 4: 21187 03/23/2017 ([id number]) [id number] EST. PATIENT, LEVEL IV Diagnosis: Type 2 diabetes mellitus without complications[ICD10: E11.9] Diagnosis: Essential (primary) hypertension[ICD10: I10] Diagnosis: Headache[ICD10: R51] Diagnosis: Atrophy of thyroid (acquired)[ICD10: E03.4] Diagnosis: Vitamin B12 deficiency anemia, unspecified[ICD10: D51.9] Yarely Vega MD, [facility] CPT-4: 64361 01/23/2017 [id number] EST. PATIENT, LEVEL III Diagnosis: Low back pain[ICD10: M54.5] Diagnosis: Pain in thoracic spine[ICD10: M54.6] Brianna Vega MD, [facility] CPT-4: 95177 11/02/2016 ([id number]) 17077 EST. PATIENT, LEVEL IV Diagnosis: Essential (primary) hypertension[ICD10: I10] Diagnosis: Other vitamin B12 deficiency anemias[ICD10: D51.8] Diagnosis: Generalized abdominal pain[ICD10: R10.84] Yarely Vega MD, [facility] CPT-4: 64348 09/29/2016 ([id number]) [id number] EST. PATIENT, LEVEL IV Diagnosis: Essential (primary) hypertension[ICD10: I10] Yarely Vega MD, [facility] CPT-4: 14594 07/26/2016 ([id number]) 54964 EST. PATIENT, LEVEL IV Diagnosis: Benign lipomatous neoplasm of skin and subcutaneous tissue of right leg[ICD10: D17.23] Diagnosis: Pain in right ankle and joints of right foot[ICD10: M25.571] Diagnosis: Encounter for immunization[ICD10: Z23] Diagnosis: Vitamin B12 deficiency anemia, unspecified[ICD10: D51.9] Yarely Vega MD, [facility] CPT-4: 06725 05/25/2016 96584 EST. PATIENT, LEVEL III Diagnosis: Other chest pain[ICD10: R07.89] Diagnosis: Other vitamin B12 deficiency anemias[ICD10: D51.8] Brianna Vega MD, [facility] CPT-4: 65818 02/25/2016 ([id number]) 43821 EST. PATIENT, LEVEL IV Diagnosis: Essential (primary) hypertension[ICD10: I10] Diagnosis: Hypothyroidism, unspecified[ICD10: E03.9] Diagnosis: Other hypersomnia[ICD10: G47.19] Diagnosis: Idiopathic sleep related nonobstructive alveolar hypoventilation[ ICD10: G47.34] Yarely Vega MD, [facility] CPT-4: 14968 01/25/2016 36052 EST. PATIENT, LEVEL III Diagnosis: Other vitamin B12 deficiency anemias[ICD10: D51.8] Diagnosis: Acute nasopharyngitis [common cold][ICD10: J00] Diagnosis: Other allergic rhinitis[ICD10: J30.89] Brianna Vega MD, [facility] CPT-4: 19811 11/11/2015 ([id number]) 10649 EST. PATIENT, LEVEL IV Diagnosis: Essential tremor[ICD10: G25.0] Diagnosis: Chronic fatigue, unspecified[ICD10: R53.82] Diagnosis: Other hypersomnia[ICD10: G47.19] Diagnosis: Essential (primary) hypertension[ICD10: I10] Yarely Vega MD, [facility] CPT-4: 24683 10/12/2015 ([id number]) 09249 EST. PATIENT, LEVEL IV Diagnosis: Essential (primary) hypertension[ICD10: I10] Diagnosis: Chronic atrial fibrillation[ICD10: I48.2] Diagnosis: Abnormal levels of other serum enzymes[ICD10: R74.8] Diagnosis: Type 2 diabetes mellitus without complications[ICD10: E11.9] Diagnosis: Vitamin B12 deficiency anemia, unspecified[ICD10: D51.9] Yarely Vega MD, [facility] CPT-4: 78442 09/03/2015 [id number]) 02149 EST. PATIENT, LEVEL III Diagnosis: Nausea[ICD10: R11.0] Diagnosis: Essential tremor[ICD10: G25.0] Diagnosis: Actinic keratosis[ICD10: L57.0] Yarely Vega MD, [facility] CPT- 4: 24026 05/19/2015 ([id number]) 47632 EST. PATIENT, LEVEL IV Diagnosis: Vitamin B12 deficiency anemia, unspecified[ICD10: D51.9] Diagnosis: Chronic atrial fibrillation[ICD10: I48.2] Diagnosis: Headache[ICD10: R51] Diagnosis: Chronic fatigue, unspecified[ICD10: R53.82] Diagnosis: Cervicalgia[ICD10: M54.2] Yarely Vega MD, [facility] CPT-4: 10041 05/12/2015 ([id number]) 05617 EST. PATIENT, LEVEL IV Diagnosis: ESSENTIAL HYPERTENSION[ICD9: 401.9] Diagnosis: Afib[ICD9: 427.31] Diagnosis: Anxiety[ICD9: 300.00] Diagnosis: Insomnia[ICD9: 780.52] Yarely Vega MD, [facility] CPT-4: 81906 01/13/2015 ([id number]) OFFICE VISIT, NEW - LEVEL 4 Diagnosis: Hypothyroidism[ICD9: 244.9] Diagnosis: DIABETES TYPE II[ICD9: 250.00] Diagnosis: ESSENTIAL HYPERTENSION[ICD9: 401.9] Diagnosis: Afib[ICD9: 427.31] Diagnosis: Anxiety[ICD9: 300.00] Diagnosis: B12 deficiency[ICD9: 266.2] Janet Vega MD, [facility] CPT-4: 50210 12/16/2014 Plan of Care Planned Activity Notes [...] and mucinex 07/06/2017 Appointment: [id number] (15 min) Moderate 07/06/2017 Patient Education: Patient [...] allergy spray. 06/20/2017 App[facility]ment[phone] [place] (15 min) Moderate 06/20/2017 Patient Education: Patient [...] Injection 06/05/2017 Appointment: [phone] [facility] - Annual Wellness Visit 06/05/2017 Patient [...] of control. 05/25/2017 Appointment: [facility]ega [id number] (15 min) Moderate 05/25/2017 Patient Education: Patient [...] wall. Fatigue - pt to discuss with Food Dehydrator Operator about the possibility of amiodarone causing her fatigue/malaise. 03/23/2017 Appointment: [facility]ega [phone] [place] (15 min) Moderate 03/23/2017 Patient Education: [...] twice daily. 01/23/2017 Appointment: [facility]ega [phone] (15 min) Moderate 01/23/2017 Patient Education: Patient [...] not improve. 11/02/2016 Appointment: [phone] (15 min) Moderate 11/02/2016 Patient Education: Patient [...] carafate 09/29/2016 Appointment: Yarely Vega WPtel: [phone] [id number] [place] (15 min) Moderate 09/29/2016 Patient Education: Patient Medication Summary Completed 09/29/2016 Appointment: Yarely Vega WPtel: [phone] [id number] [place] (15 min) Moderate 09/27/2016 Appointment: [facility]ega [phone] [place] (15 min) Moderate 09/20/2016 Appointment: [facility]arely Vega [facility]Ptel[phone] [place] (15 min) Moderate 09/20/2016 Patient Education: Patient Medication Summary Completed 09/06/2016 Appointment: Yare[facility]ega [phone] [facility] [place] (15 min) Moderate 08/30/2016 Appointment: Injection [...] to call for acute concerns. 07/26/2016 Appointment: GaryMeggany WPtel[phone] (15 min) Moderate 07/26/2016 Patient Education: Patient [...] care surrogate. 05/30/2016 Appointment: [phone] [facility] - Annual Wellness Visit 05/30/2016 Patient [...] at bedtime 05/25/2016 Appointment: [facility]ega [phone] (15 min) Moderate 05/25/2016 Patient Education: Patient Medication Summary Completed 05/25/2016 Patient Education: Obesity Completed 05/25/2016 Care Plan: Referral Order SNOMED-CT : [id number] Pending 05/25/2016 Appointment: Injection 05/10/2016 Patient Education: Patient Medication Summary Completed 05/10/2016 Appointment: Injection 04/26/2016 Patient Education: Patient Medication Summary Completed 04/26/2016 Appointment: Injection 04/11/2016 Patient Education: Patient Medication Summary Completed 04/11/2016 Appointment: Injection 03/31/2016 Patient Education: Patient Medication Summary Completed 03/31/2016 Patient Education: Patient Medication Summary Completed 03/22/2016 [facility] Pending 03/22/2016 Appointment: Injection 03/15/2016 Patient Education: [...] any concerns. 02/25/2016 Appointment: [facility] Otoole [phone] (15 min) Moderate 02/25/2016 Patient Education: [...] the patients recent sleep study - recommended [place] patient eval of pt - nocturnal oxygen study - will order - if positive oxygen concentrator with humidification. 01/25/2016 Visit Plan: Hypertension - well controlled [...] the patients recent sleep study - recommended [place] patient eval of pt - nocturnal oxygen study - will order - if positive oxygen concentrator with humidification. I suspect that she has the nocturnal hypoxemia due to her chronic atrial fibrillation and history of coronary artery disease with chronic systolic heart failure. 01/25/2016 Patient Education: Patient Medication Summary Completed [...] case with Faiza's daughter who had left [facility]. She is interested in looking at assisted living facilities for her mom as Faiza's family is for assisted living placement sooner rather than later. 10/12/2015 Appointment: Yarely Vega WPtel: [facility] (15 min) Moderate 10/12/2015 Patient Education: Patient [...] Summary Completed 08/17/2015 Appointment: Yarely Vega [facility]el: [phone] (15 min) Moderate 08/11/2015 Appointment: Injection 08/06/2015 [...] x 2 05/19/2015 Appointment: Yarely Vega [facility]el: [phone] (30 min) Complex 05/19/2015 Patient Education: Patient [...] prn alprazolam. 01/13/2015 Appointment: Yarely Vega WPtel: [facility] (15 min) Moderate 01/13/2015 Patient Education: Patient [...] current medications. 12/16/2014 Appointment: Janet Fam WPtel: [id number] [place] New Patient 12/16/2014 Patient Education: Patient Medication Summary Completed 12/16/2014 Appointment: Injection 12/10/2014 Patient Education: Patient Medication Summary Completed 12/10/2014 Appointment: Injection 11/26/2014 Patient Education: Patient Medication Summary Completed 11/26/2014 Patient Education: Patient Medication Summary Completed 11/12/2014 Appointment: Nurse Visit 10/28/2014 Patient Education: Patient Medication Summary Completed 10/28/2014 Appointment: Injection 10/14/2014 Referral: Genaro Bravo Referral Appointment Requested Instructions Comment . Chest Pain - pt states that she has had chest pain off an on, she states that it goes down her left arm and to her back. She states that she has had some nausea. Will check labs and order EKG - pt is to notify clinic if symptoms return, or with any concerns. decrease topamax to one pill nightly . [...] their heart rate is becoming uncontrolled. . Hypertension - well controlled - continue [...] case with Faiza's daughter who [facility]. She is interested in looking at assisted living facilities for her mom as Faiza's family is for assisted living placement sooner rather than later. . Low back pain- ongoing - will [...] her DOPA paperwork for health care surrogate. . Atrial Fibrillation - pt on chronic [...] and understands the consequences of over-medication. . b12 injection change priolosec to bedtime to see if [...] - cryotherapy of skin lesions x 2 Reminder - please take the TOPAMAX daily [...] wall. Fatigue - pt to discuss with Food Dehydrator Operator about the possibility of amiodarone causing her [...] the patients recent sleep study - recommended [place] patient eval of pt - nocturnal [...] months based on previous levels of control. increase norvasc from 5mg daily to 10mg [...] pt is to call for acute concerns. Schedule thyroid ultrasound Add T3 and digoxin [...] situational exposure. No change in current medications. Stop Keflex Start Doxycycline - probiotic while [...] her DOPA paperwork for health care surrogate. womens probiotic - take one pill daily. [...] control. Abdominal pain - continue with carafate . Hypertension - well controlled - continue [...] the patients recent sleep study - recommended [place] patient eval of pt - nocturnal oxygen study - will order - if positive oxygen concentrator with humidification. I suspect that she has the nocturnal hypoxemia due to her chronic atrial fibrillation and history of coronary artery disease with chronic systolic heart failure. loratadine - generic for CLARITIN - take [...] - increase dose to twice daily. . URI - Pt advised to increase [...] spray in the nasal steroid allergy spray. Power Pudding: equal parts of prune juice, [...] continue with current treatment plan and mucinex melatonin can take 3mg to 10mg at [...]
[2017-09-17] MEDS ORDERED: RT-ALBUTEROL/IPRATROPIUM 3 ML (DUONEB) VIAL INH ONE (09:45)
[2017-09-17 09:48] LABS: BASOPHILS % (AUTO) 0 % (0-10); EOSINOPHILS # (AUTO) 0.1 10^3/uL (0.0-0.3); EOSINOPHILS % (AUTO) 1 % (0-10); HEMATOCRIT 41 % (35-52); LYMPHOCYTES % (AUTO) 20 % (12-44); MEAN CORPUSCULAR HEMOGLOBIN 29 PG (25-34); MEAN CORPUSCULAR HGB CONC 32 G/DL (32-36); MEAN CORPUSCULAR VOLUME 90 FL (80-99); MEAN PLATELET VOLUME 9.9 FL (7.4-10.4); MONOCYTES # (AUTO) 0.4 X 10^3 (0.0-1.0); MONOCYTES % (AUTO) 8 % (0-12); NEUTROPHILS # (AUTO) 3.5 X 10^3 (1.8-7.8); NEUTROPHILS % (AUTO) 71 % (42-75); PLATELET COUNT 171 10^3/uL (130-400); RED BLOOD COUNT 4.53 10^6/uL (4.35-5.85); RED CELL DISTRIBUTION WIDTH 14.2 % (10.0-14.5); WHITE BLOOD COUNT 4.9 10^3/uL (4.3-11.0)
--- OUTSIDE RECORDS SUMMARY | 2017-09-17 09:48 | XMS REPORT | CCD ---
Author Author [facility] Organization [facility] Address [address] [place] [address] Phone Care Team Providers Care Computer Security Coordinator Name Role Phone PP Unavailable CCM Unavailable Summary Purpose Interface Exchange Insurance Providers Payer name Policy type / Coverage type Covered alliance party ID Effective Begin Date Effective End Date WPS Medicare Part B Medicare Part B [id number] Unknown Unknown Principal Life Insurance Medicare Part B [id number] Unknown Unknown Family history Brother Diagnosis Age At Onset Heart Attack Unknown Mother Diagnosis Age At Onset Hypertension Unknown kidney disease Unknown Stroke Unknown Father Diagnosis Age At Onset Arthritis Unknown Social History Social History Element Codes Description Effective Dates Employment Unknown Retired worked at [employer] 2016 Marital status Unknown Single 12/16/[address]: 3459713 Former smoker 12/16/[address]: 067365481 Never drinks alcohol 12/16/2014 Allergies, Adverse Reactions, [...] Start Date Stop Date Status Fill Instructions levothyroxine 125 mcg tablet RxNorm: 448018 Tablet(s) 1 Tablet(s) PO daily 07/10/2017 01/05/2018 Active nystatin 100,000 unit/gram topical powder RxNorm: 869733 1 Gram(s) TOP QID 07/06/2017 07/15/2017 Active cyanocobalamin (vit B-12) 1,000 mcg/mL injection solution RxNorm: 026306 Milliliter(s) Inj 07/06/2017 07/06/2017 Inactive Kenalog 40 mg/mL suspension for injection RxNorm: 1211167 1 Milliliter(s) Inj 06/20/2017 06/20/2017 Inactive cyanocobalamin (vit B-12) 1,000 mcg/mL injection solution RxNorm: 022790 Milliliter(s) Inj 06/20/2017 06/20/2017 Inactive Mobic 15 mg tablet RxNorm: 702629 1 Tablet(s) PO daily 201606/08/2018 Active Keflex 500 mg capsule RxNorm: 901068 1 Capsule(s) PO TID 201606/23/2017 Inactive Please deliver to patient cyanocobalamin (vit B-12) 1,000 mcg/mL injection solution RxNorm: 796778 Milliliter(s) Inj 06/05/2017 06/05/2017 Inactive buspirone 15 mg tablet RxNorm: 598970 TAKE 1 TABLET BY MOUTH TWICE DAILY 05/31/2017 05/25/2018 Active Generic For:BUSPAR 15MG 05/31/2017 9:19:20 AM hydrocodone 5 mg-acetaminophen 325 mg tablet RxNorm: 219560 1-2 Tablet(s) PO Q6 as needed for pain 05/25/2017 06/23/2017 Inactive cyanocobalamin (vit B-12) 1,000 mcg/mL injection solution RxNorm: 106101 Milliliter(s) Inj 05/25/2017 05/25/2017 Inactive amiodarone 200 mg tablet RxNorm: 638179 1/2 Tablet(s) PO daily 05/22/2017 No Stop Date Active cardiology decreased to 100mg daily cyanocobalamin (vit B-12) 1,000 mcg/mL injection solution RxNorm: 810252 Milliliter(s) Inj 05/16/2017 05/16/2017 Inactive Zofran ODT 4 mg disintegrating tablet RxNorm: 110614 1 Tablet(s) PO TID as needed 05/03/2017 05/04/2017 Inactive hydrocodone 5 mg-acetaminophen 325 mg tablet RxNorm: 780734 1-2 Tablet(s) PO Q6 as needed for pain 05/01/2017 05/05/2017 Inactive cyanocobalamin (vit B-12) 1,000 mcg/mL injection solution RxNorm: 235470 1 Milliliter(s) Inj 05/01/2017 05/01/2017 Inactive cyanocobalamin (vit B-12) 1,000 mcg/mL injection solution RxNorm: 271551 INJECT ONE 1 ML EVERY TWO WEEKS 04/26/20172018 Active 04/26/2017 9:08:52 AM Zoloft 50 mg tablet RxNorm: 625209 Tablet(s) TAKE 1 TABLET BY MOUTH DAILY 04/25/2017 10/21/2017 Active Generic For:ZOLOFT 50MG cyanocobalamin (vit B-12) 1,000 mcg/mL injection solution RxNorm: 622047 Milliliter(s) Inj 04/18/2017 04/18/2017 Inactive liothyronine 5 mcg tablet RxNorm: 855723 1 Tablet(s) PO BID 10/09/2017 Active cyanocobalamin (vit B-12) 1,000 mcg/mL injection solution RxNorm: 567057 Milliliter(s) Inj 04/06/2017 04/06/2017 Inactive hydrocodone 5 mg-acetaminophen 325 mg tablet RxNorm: 200860 1-2 Tablet(s) PO Q6 as needed for pain 04/06/2017 04/10/2017 Inactive cyanocobalamin (vit B-12) 1,000 mcg/mL injection solution RxNorm: 066497 Milliliter(s) Inj 03/22/2017 03/22/2017 Inactive alprazolam 0.25 mg tablet RxNorm: 791285 1 Tablet(s) PO BID 09/12/2017 Active alprazolam 0.25 mg tablet RxNorm: 175389 1 Tablet(s) PO BID 09/10/2017 Active hydrocodone 5 mg-acetaminophen 325 mg tablet RxNorm: 820714 1-2 Tablet(s) PO Q6 as needed for pain 03/09/2017 03/13/2017 Inactive cyanocobalamin (vit B-12) 1,000 mcg/mL injection solution RxNorm: 197385 Milliliter(s) Inj 03/09/2017 03/09/2017 Inactive cyanocobalamin (vit B-12) 1,000 mcg/mL injection solution RxNorm: 543669 Milliliter(s) Inj 02/23/2017 02/23/2017 Inactive cyanocobalamin (vit B-12) 1,000 mcg/mL injection solution RxNorm: 376940 Milliliter(s) Inj 02/09/2017 02/09/2017 Inactive hydrocodone 5 mg-acetaminophen 325 mg tablet RxNorm: 890920 1-2 Tablet(s) PO Q6 as needed for pain 02/08/2017 02/12/2017 Inactive Topamax 25 mg tablet RxNorm: 206060 1 Tablet(s) PO BID 201605/22/2017 Inactive Generic For:TOPAMAX 25MG 12/06/2016 9:15:13 AM cyanocobalamin (vit B-12) 1,000 mcg/mL injection solution RxNorm: 831802 Milliliter(s) Inj 01/23/2017 01/23/2017 Inactive cyanocobalamin (vit B-12) 1,000 mcg/mL injection solution RxNorm: 877969 Milliliter(s) Inj 01/10/2017 01/10/2017 Inactive hydrocodone 5 mg-acetaminophen 325 mg tablet RxNorm: 503672 1-2 Tablet(s) PO Q6 as needed for pain 01/09/2017 01/13/2017 Inactive cyanocobalamin (vit B-12) 1,000 mcg/mL injection solution RxNorm: 944203 1 Milliliter(s) Inj 12/28/2016 12/28/2016 Inactive cyanocobalamin (vit B-12) 1,000 mcg/mL injection solution RxNorm: 510198 Milliliter(s) Inj 12/14/2016 12/14/2016 Inactive buspirone 15 mg tablet RxNorm: 659220 1 Tablet(s) PO BID 201605/30/2017 Inactive hydrocodone 5 mg-acetaminophen 325 mg tablet RxNorm: 925718 1-2 Tablet(s) PO Q6 as needed for pain 12/08/2016 12/12/2016 Inactive Topamax 25 mg tablet RxNorm: 598475 TAKE 1 TABLET BY MOUTH EVERY DAY AT BEDTIME 12/06/2016 01/22/2017 Inactive Generic For:TOPAMAX 25MG 12/06/2016 9:15:13 AM Lac-Hydrin Five 5 % lotion RxNorm: 542682 1 Gram(s) TOP daily 12/02/2016 01/30/2017 Inactive cyanocobalamin (vit B-12) 1,000 mcg/mL injection solution RxNorm: 021668 Milliliter(s) Inj 11/24/2016 11/24/2016 Inactive Ceftin 500 mg tablet RxNorm: 508842 1 Tablet(s) PO BID 201606/13/2017 Inactive Cipro 500 mg tablet RxNorm: 052641 1 Tablet(s) PO BID 201611/10/2016 Inactive Cipro 500 mg tablet RxNorm: 204392 1 Tablet(s) PO BID 201611/11/2016 Inactive cyanocobalamin (vit B-12) 1,000 mcg/mL injection solution RxNorm: 776933 1 Milliliter(s) Inj 11/07/2016 11/07/2016 Inactive hydrocodone 5 mg-acetaminophen 325 mg tablet RxNorm: 047021 1-2 Tablet(s) PO Q6 as needed for pain 11/02/2016 11/06/2016 Inactive cyanocobalamin (vit B-12) 1,000 mcg/mL injection solution RxNorm: 466351 Milliliter(s) Inj 10/24/2016 10/24/2016 Inactive levothyroxine 125 mcg tablet RxNorm: 192813 Tablet(s) 1 Tablet(s) PO daily 10/24/2016 04/21/2017 Inactive liothyronine 5 mcg tablet RxNorm: 108622 1 Tablet(s) PO BID 01/201704/12/2017 Inactive hydrocodone 5 mg-acetaminophen 325 mg tablet RxNorm: 212964 1-2 Tablet(s) PO Q6 as needed for pain 10/17/2016 10/21/2016 Inactive Keflex 500 mg capsule RxNorm: 336765 1 Capsule(s) PO TID 201610/06/2016 Inactive Keflex 500 mg capsule RxNorm: 846954 1 Capsule(s) PO TID 201610/16/2016 Inactive Please deliver to patient cyanocobalamin (vit B-12) 1,000 mcg/mL injection solution RxNorm: 240439 1 Milliliter(s) Inj 09/29/2016 09/29/2016 Inactive alprazolam 0.25 mg tablet RxNorm: 823612 1 Tablet(s) PO BID 09/201603/16/2017 Inactive Cozaar 100 mg tablet RxNorm: 915272 1 Tablet(s) PO daily 2016 No Stop Date Active metoprolol tartrate 50 mg tablet RxNorm: 706108 1/2 Tablet(s) PO BID 09/14/2016 12/12/2016 Inactive Zoloft 50 mg tablet RxNorm: 939926 Tablet(s) TAKE 1 TABLET BY MOUTH DAILY 09/14/2016 03/12/2017 Inactive Generic For:ZOLOFT 50MG liothyronine 5 mcg tablet RxNorm: 454121 1 Tablet(s) PO BID 10/23/2016 Inactive Calmoseptine 0.44 %-20.6 % topical ointment RxNorm: 769565 1 Application TOP BID and as needed to sore on buttocks 09/07/2016 No Stop Date Active cyanocobalamin (vit B-12) 1,000 mcg/mL injection solution RxNorm: 239496 Milliliter(s) Inj 08/29/2016 08/29/2016 Inactive hydrocodone 5 mg-acetaminophen 325 mg tablet RxNorm: 005686 1-2 Tablet(s) PO Q6 as needed for pain 08/29/2016 10/16/2016 Inactive levothyroxine 125 mcg tablet RxNorm: 672628 1 Tablet(s) PO daily 08/25/2016 10/23/2016 Inactive Topamax 25 mg tablet RxNorm: 317242 TAKE 1 TABLET BY MOUTH EVERY DAY AT BEDTIME 08/17/2016 12/05/2016 Inactive Generic For:TOPAMAX 25MG 08/17/2016 2:14:37 PM hydrocodone 5 mg-acetaminophen 325 mg tablet RxNorm: 809653 1-2 Tablet(s) PO Q6 as needed for pain 08/11/2016 08/28/2016 Inactive hydrocodone 5 mg-acetaminophen 325 mg tablet RxNorm: 785882 1 -2 Tablet(s) PO Q6 as needed for pain 08/11/2016 08/18/2016 Inactive hydrocodone 5 mg-acetaminophen 325 mg tablet RxNorm: 040883 1 Tablet(s) PO Q6 as needed for pain 08/05/2016 08/10/2016 Inactive cyanocobalamin (vit B-12) 1,000 mcg/mL injection solution RxNorm: 958275 Milliliter(s) Inj 08/04/2016 08/04/2016 Inactive Norvasc 10 mg tablet RxNorm: 805529 1 Tablet(s) PO daily 201607/20/2017 Active levothyroxine 125 mcg tablet RxNorm: 817288 1 Tablet(s) PO daily 07/21/2016 10/18/2016 Inactive alprazolam 0.25 mg tablet RxNorm: 225297 1 Tablet(s) PO QHS 07/201609/19/2016 Inactive Norvasc 5 mg tablet RxNorm: 089246 1 Tablet(s) PO daily 201607/25/2016 Inactive cyanocobalamin (vit B-12) 1,000 mcg/mL injection solution RxNorm: 580486 Milliliter(s) Inj 07/21/2016 07/21/2016 Inactive Zoloft 50 mg tablet RxNorm: 618376 Tablet(s) TAKE 1 TABLET BY MOUTH DAILY 07/21/2016 09/13/2016 Inactive Generic For:ZOLOFT 50MG cyanocobalamin (vit B-12) 1,000 mcg/mL injection solution RxNorm: 518674 1 Milliliter(s) Inj 07/05/2016 07/05/2016 Inactive cyanocobalamin (vit B-12) 1,000 mcg/mL injection solution RxNorm: 239405 1 Milliliter(s) Inj 06/22/2016 06/22/2016 Inactive cyanocobalamin (vit B-12) 1,000 mcg/mL injection solution RxNorm: 565941 Milliliter(s) Inj 06/09/2016 06/09/2016 Inactive Aricept 10 mg tablet RxNorm: 054136 1 Tablet(s) PO daily 201505/21/2017 Inactive Mobic 15 mg tablet RxNorm: 443517 1 Tablet(s) PO daily 201505/21/2017 Inactive levothyroxine 125 mcg tablet RxNorm: 641975 1 Tablet(s) PO daily 05/25/2016 07/20/2016 Inactive cyanocobalamin (vit B-12) 1,000 mcg/mL injection solution RxNorm: 193573 1 Milliliter(s) Inj 05/25/2016 05/25/2016 Inactive doxycycline hyclate 100 mg capsule RxNorm: 2269374 1 Capsule(s) PO BID 05/16/2016 05/15/2016 Inactive doxycycline hyclate 100 mg capsule RxNorm: 2588444 1 Capsule(s) PO BID 05/16/2016 05/22/2016 Inactive cyanocobalamin (vit B-12) 1,000 mcg/mL injection solution RxNorm: 338737 Milliliter(s) Inj 05/10/2016 05/10/2016 Inactive cyanocobalamin (vit B-12) 1,000 mcg/mL injection solution RxNorm: 483858 Milliliter(s) Inj 04/26/2016 04/26/2016 Inactive Topamax 25 mg tablet RxNorm: 703675 1 Tablet(s) PO QPM 201508/16/2016 Inactive cyanocobalamin (vit B-12) 1,000 mcg/mL injection solution RxNorm: 629428 Milliliter(s) 1 Milliliter(s) Inj Q1djabp 04/11/2016 12/31/2017 Active liothyronine 5 mcg tablet RxNorm: 327806 1 Tablet(s) PO BID 09/13/2016 Inactive cyanocobalamin (vit B-12) 1,000 mcg/mL injection solution RxNorm: 302005 Milliliter(s) Inj 04/11/2016 04/11/2016 Inactive cyanocobalamin (vit B-12) 1,000 mcg/mL injection solution RxNorm: 673928 Milliliter(s) Inj 03/31/2016 03/31/2016 Inactive cyanocobalamin (vit B-12) 1,000 mcg/mL injection solution RxNorm: 568860 1 Milliliter(s) Inj 03/15/2016 03/15/2016 Inactive levothyroxine 125 mcg tablet RxNorm: 344983 1 Tablet(s) PO daily 2016 03/03/2016 Inactive levothyroxine 125 mcg tablet RxNorm: 716175 1 Tablet(s) PO daily 2016 05/24/2016 Inactive cyanocobalamin (vit B-12) 1,000 mcg/mL injection solution RxNorm: 913994 Milliliter(s) Inj 02/25/2016 02/25/2016 Inactive cyanocobalamin (vit B-12) 1,000 mcg/mL injection solution RxNorm: 496916 1 Milliliter(s) Inj 02/02/2016 02/02/2016 Inactive sucralfate 1 gram tablet RxNorm: 886358 1 Tablet(s) PO QHS 01/2016 No Stop Date Active amiodarone 200 mg tablet RxNorm: 476180 1/2 Tablet(s) PO BID 05/21/2017 Inactive cyanocobalamin (vit B-12) 1,000 mcg/mL injection solution RxNorm: 412862 Milliliter(s) Inj 01/18/2016 01/18/2016 Inactive cyanocobalamin (vit B-12) 1,000 mcg/mL injection solution RxNorm: 675957 Milliliter(s) Inj 12/29/2015 12/29/2015 Inactive Topamax 25 mg tablet RxNorm: 092668 1 Tablet(s) PO QPM 201504/05/2016 Inactive cyanocobalamin (vit B-12) 1,000 mcg/mL injection solution RxNorm: 880106 Milliliter(s) Inj 12/08/2015 12/08/2015 Inactive Bactrim DS 800 mg-160 mg tablet RxNorm: 274585 1 Tablet(s) PO BID 11/23/2015 11/22/2015 Inactive cyanocobalamin (vit B-12) 1,000 mcg/mL injection solution RxNorm: 825061 Milliliter(s) Inj 11/23/2015 11/23/2015 Inactive Bactrim DS 800 mg-160 mg tablet RxNorm: 411620 1 Tablet(s) PO BID 11/23/2015 11/29/2015 Inactive cyanocobalamin (vit B-12) 1,000 mcg/mL injection solution RxNorm: 436314 Milliliter(s) Inj 11/11/2015 11/11/2015 Inactive amoxicillin 500 mg capsule RxNorm: 505349 1 Capsule(s) PO TID 11/10/2015 11/19/2015 Inactive Zithromax Z-Henrique 250 mg tablet RxNorm: 418425 1 Tablet(s) PO UD 11/10/2015 01/24/2016 Inactive zpack x 1 amoxicillin 500 mg capsule RxNorm: 169118 1 Capsule(s) PO TID 11/10/2015 11/09/2015 Inactive cyanocobalamin (vit B-12) 1,000 mcg/mL injection solution RxNorm: 648089 1 Milliliter(s) Inj 10/29/2015 10/29/2015 Inactive [place] 3 capsule RxNorm : 1 Capsule(s) PO QAM , 2 Capsules at noon, 1 Capsule QHS 10/13/2015 No Stop Date Active potassium chloride ER 20 mEq tablet,extended release RxNorm: 119635 2 Tablet(s) PO daily at noon 10/13/2015 No Stop Date Active alprazolam 0.25 mg tablet RxNorm: 764710 1 Tablet(s) PO QHS 07/20/2016 Inactive amiodarone 200 mg tablet RxNorm: 913278 1 Tablet(s) PO BID 01/24/2016 Inactive cyanocobalamin (vit B-12) 1,000 mcg/mL injection solution RxNorm: 233009 1 Milliliter(s) Inj 10/12/2015 10/12/2015 Inactive Zofran 4 mg tablet RxNorm: 543690 1 Tablet(s) PO daily as needed 10/07/2015 05/24/2016 Inactive Zoloft 50 mg tablet RxNorm: 992856 TAKE 1 TABLET BY MOUTH DAILY 10/05/2015 05/01/2016 Inactive Generic For:ZOLOFT 50MG cyanocobalamin (vit B-12) 1,000 mcg/mL injection solution RxNorm: 298196 1 Milliliter(s) Inj 09/29/2015 09/29/2015 Inactive cyanocobalamin (vit B-12) 1,000 mcg/mL injection solution RxNorm: 548500 1 Milliliter(s) Inj 09/17/2015 09/17/2015 Inactive Norvasc 5 mg tablet RxNorm: 722983 1 Tablet(s) PO daily 201507/20/2016 Inactive liothyronine 5 mcg tablet RxNorm: 003054 1 Tablet(s) PO BID 03/14/2016 Inactive Zoloft 50 mg tablet RxNorm: 975156 1 Tablet(s) PO daily 201510/04/2015 Inactive buspirone 15 mg tablet RxNorm: 555954 1 Tablet(s) PO BID 201509/10/2016 Inactive buspirone 15 mg tablet RxNorm: 969893 1 Tablet(s) PO BID 201509/16/2015 Inactive Topamax 25 mg tablet RxNorm: 143185 1 Tablet(s) PO QPM 201512/07/2015 Inactive cyanocobalamin (vit B-12) 1,000 mcg/mL injection solution RxNorm: 808275 1 Milliliter(s) Inj 09/03/2015 09/03/2015 Inactive cyanocobalamin (vit B-12) 1,000 mcg/mL injection solution RxNorm: 290571 Milliliter(s) Inj 08/17/2015 08/17/2015 Inactive cyanocobalamin (vit B-12) 1,000 mcg/mL injection solution RxNorm: 452846 Milliliter(s) Inj 08/06/2015 08/06/2015 Inactive levothyroxine 150 mcg tablet RxNorm: 270832 1 Tablet(s) PO daily 07/22/2015 03/03/2016 Inactive Aricept 10 mg tablet RxNorm: 735552 1 Tablet(s) PO daily 201505/26/2016 Inactive Mobic 15 mg tablet RxNorm: 809169 1 Tablet(s) PO daily 201505/26/2016 Inactive cyanocobalamin (vit B-12) 1,000 mcg/mL injection solution RxNorm: 974635 Milliliter(s) Inj 07/22/2015 07/22/2015 Inactive liothyronine 5 mcg tablet RxNorm: 226201 1 Tablet(s) PO BID 08/201509/16/2015 Inactive cyanocobalamin (vit B-12) 1,000 mcg/mL injection solution RxNorm: 372286 Milliliter(s) Inj 07/08/2015 07/08/2015 Inactive cyanocobalamin (vit B-12) 1,000 mcg/mL injection solution RxNorm: 761264 Milliliter(s) Inj 06/23/2015 06/23/2015 Inactive cyanocobalamin (vit B-12) 1,000 mcg/mL injection solution RxNorm: 574067 1 Milliliter(s) Inj 06/08/2015 06/08/2015 Inactive cyanocobalamin (vit B-12) 1,000 mcg/mL injection solution RxNorm: 669578 Milliliter(s) Inj 05/27/2015 05/27/2015 Inactive Aricept 10 mg tablet RxNorm: 153948 1 Tablet(s) PO daily 201407/21/2015 Inactive Zofran 4 mg tablet RxNorm: 723968 1 Tablet(s) PO daily as needed 05/20/2015 06/18/2015 Inactive alprazolam 0.25 mg tablet RxNorm: 987797 1 Tablet(s) PO BID 07/201410/12/2015 Inactive Mobic 15 mg tablet RxNorm: 819819 1 Tablet(s) PO daily 201407/21/2015 Inactive tramadol ER 100 mg tablet,extended release 24 hr RxNorm: 946109 1 Tablet(s) PO Q6 as needed 05/13/2015 No Stop Date Active cyanocobalamin (vit B-12) 1,000 mcg/mL injection solution RxNorm: 891634 1 Milliliter(s) Inj 05/12/2015 05/12/2015 Inactive Topamax 25 mg tablet RxNorm: 767713 1 Tablet(s) PO BID (start at one pill at bedtime x 1week then twice daily thereafter) 05/12/2015 09/02/2015 Inactive cyanocobalamin (vit B-12) 1,000 mcg/mL injection kit RxNorm: 612373 kit Inj 04/30/2015 04/30/2015 Inactive cyanocobalamin (vit B-12) 1,000 mcg/mL injection solution RxNorm: 132238 Milliliter(s) Inj 04/16/2015 04/16/2015 Inactive levothyroxine 150 mcg tablet RxNorm: 762596 1 Tablet(s) PO daily 04/08/2015 07/21/2015 Inactive cyanocobalamin (vit B-12) 1,000 mcg/mL injection solution RxNorm: 278203 Milliliter(s) 1 Milliliter(s) Inj [id number] 04/08/2015 04/10/2016 Inactive Cytomel 5 mcg tablet RxNorm: 743541 1 Tablet(s) PO BID 201410/12/2015 Inactive Cytomel 5 mcg tablet RxNorm: 785131 1 Tablet(s) PO BID 201404/07/2015 Inactive Cytomel 5 mcg tablet RxNorm: 143607 1 Tablet(s) PO BID 201404/06/2015 Inactive cyanocobalamin (vit B-12) 1,000 mcg/mL injection solution RxNorm: 121425 Milliliter(s) Inj 04/02/2015 04/02/2015 Inactive cyanocobalamin (vit B-12) 1,000 mcg/mL injection solution RxNorm: 185825 Milliliter(s) Inj 03/18/2015 03/18/2015 Inactive cyanocobalamin (vit B-12) 1,000 mcg/mL injection solution RxNorm: 380312 Milliliter(s) 1 Milliliter(s) Inj [id number] 03/18/2015 04/07/2015 Inactive cyanocobalamin (vit B-12) 1,000 mcg/mL injection solution RxNorm: 493954 1 Milliliter(s) Inj F2nqtst 03/16/201503/17 Inactive cyanocobalamin (vit B-12) 1,000 mcg/mL injection solution RxNorm: 695150 Milliliter(s) Inj 03/03/2015 03/03/2015 Inactive cyanocobalamin (vit B-12) 1,000 mcg/mL injection solution RxNorm: 442808 Milliliter(s) Inj 02/18/2015 02/18/2015 Inactive cyanocobalamin (vit B-12) 1,000 mcg/mL injection solution RxNorm: 614806 Milliliter(s) Inj 02/04/2015 02/04/2015 Inactive cyanocobalamin (vit B-12) 1,000 mcg/mL injection solution RxNorm: 627794 Milliliter(s) Inj 01/22/2015 01/22/2015 Inactive Lac-Hydrin Five 5 % lotion RxNorm: 200469 1 TOP daily 201403/13/2015 Inactive Lac-Hydrin Five 5 % lotion RxNorm: 829174 1 TOP daily 201401/12/2015 Inactive cyanocobalamin (vit B-12) 1,000 mcg/mL injection solution RxNorm: 862815 Milliliter(s) Inj 01/08/2015 01/08/2015 Inactive cyanocobalamin (vit B-12) 1,000 mcg/mL injection solution RxNorm: 567325 Milliliter(s) Inj 12/25/2014 12/25/2014 Inactive levothyroxine 150 mcg tablet RxNorm: 640024 1 Tablet(s) PO daily 12/24/2014 04/07/2015 Inactive tramadol 50 mg tablet RxNorm: 646879 1-2 Tablet(s) PO Q6 as needed 12/17/2014 05/12/2015 Inactive alprazolam 0.25 mg tablet RxNorm: 990606 1 Tablet(s) PO BID 06/201404/15/2015 Inactive Pradaxa 150 mg capsule RxNorm: 5981315 1 Capsule(s) PO BID No Stop Date Active metoprolol tartrate 50 mg tablet RxNorm: 178763 1/2 Tablet(s) PO BID 12/16/2014 09/13/2016 Inactive buspirone 15 mg tablet RxNorm: 781388 1 Tablet(s) PO BID 201409/13/2015 Inactive cyanocobalamin (vit B-12) 1,000 mcg/mL injection solution RxNorm: 442044 1 Milliliter(s) Inj I2eqlau 12/16/201403/15 Inactive cyanocobalamin (vit B-12) 1,000 mcg/mL injection solution RxNorm: 797093 1 Milliliter(s) Inj [id number] 12/16/201412/15 Inactive sucralfate 1 gram tablet RxNorm: 373000 Tablet(s) PO QID 201412/10/2015 Inactive cyanocobalamin (vit B-12) 1,000 mcg/mL injection solution RxNorm: 886351 Milliliter(s) Inj 12/10/2014 12/10/2014 Inactive cyanocobalamin (vit B-12) 1,000 mcg/mL injection solution RxNorm: 894389 Milliliter(s) Inj 11/26/2014 11/26/2014 Inactive Zoloft 50 mg tablet RxNorm: 153370 1 Tablet(s) PO daily 201406/21/2015 Inactive Zoloft 50 mg tablet RxNorm: 422211 1 Tablet(s) PO daily 201411/23/2014 Inactive cyanocobalamin (vit B-12) 1,000 mcg/mL injection kit RxNorm: 480379 Milliliter(s) Inj 11/12/2014 11/12/2014 Inactive cyanocobalamin (vit B-12) 1,000 mcg/mL injection solution RxNorm: 341448 Milliliter(s) Inj 10/28/2014 10/28/2014 Inactive [SAVINGS FOR NON-COVERED DRUGS -- BIN:[id number], PCN: [id number], Group: [id number], ID# [id number], Questions: [phone]. THIS IS NOT INSURANCE.] promethazine oral RxNorm: 8745 oral No Start Date Active digoxin 125 mcg tablet RxNorm: 768586 Tablet(s) PO every other day No Start Date Active furosemide 40 mg tablet RxNorm: 111011 1 Tablet(s) PO daily No Start Date Active Vitamin D3 5,000 unit tablet RxNorm: 752807 1 Tablet(s) PO daily No Start Date Active erythromycin 250 mg capsule,delayed release RxNorm: 155142 1 Capsule(s) PO AC No Start Date Active Protonix 40 mg tablet,delayed release RxNorm: 858782 1 Tablet(s) PO BID No Start Date Active Cozaar 100 mg tablet RxNorm: 797820 1 Tablet(s) PO daily No Start Date 09/13/2016 Inactive sucralfate 1 gram tablet RxNorm: 502791 Tablet(s) PO QID No Start Date 12/15/2014 Inactive amiodarone 200 mg tablet RxNorm: 123461 2 Tablet(s) PO daily No Start Date 10/13/2015 Inactive buspirone 15 mg tablet RxNorm: 915809 1 Tablet(s) PO daily No Start Date 12/15/2014 Inactive potassium chloride ER 20 mEq tablet,extended release RxNorm: 330687 1 Tablet(s) PO daily No Start Date 10/12/2015 Inactive Prilosec 40 mg capsule,delayed release RxNorm: 983149 1 Capsule(s) PO daily No Start Date 09/02/2015 Inactive [place] 3 capsule RxNorm : Capsule(s) PO No Start Date 10/12/2015 Inactive alprazolam 0.25 mg tablet RxNorm: 545483 Tablet(s) PO QHS No Start Date 12/16/2014 Inactive levothyroxine 125 mcg tablet RxNorm: 784016 1 Tablet(s) PO daily No Start Date 12/23/2014 Inactive liothyronine 5 mcg tablet RxNorm: 435622 1 Tablet(s) PO BID No Start Date 07/21/2015 Inactive Mobic 15 mg tablet RxNorm: 640659 Tablet(s) PO daily No Start Date 05/19/2015 Inactive Norvasc 5 mg tablet RxNorm: 874044 1 Tablet(s) PO daily No Start Date 09/16/2015 Inactive Zofran 4 mg tablet RxNorm: 884640 1 Tablet(s) PO daily as needed No Start Date 05/19/2015 Inactive tramadol 50 mg tablet RxNorm: 684173 1 Tablet(s) PO daily as needed No Start Date 12/16/2014 Inactive amiodarone 200 mg tablet RxNorm: 071270 1 Tablet(s) PO daily No Start Date 10/12/2015 Inactive Zofran ODT 4 mg disintegrating tablet RxNorm: 312545 1 Tablet(s) PO TID as needed No Start Date 05/02/2017 Inactive meclizine 25 mg tablet RxNorm: 335498 Tablet(s) PO as needed No Start Date 05/24/2016 Inactive Pradaxa 150 mg capsule RxNorm: 9248470 1 Capsule(s) PO daily No Start Date 12/15/2014 Inactive metoprolol tartrate 50 mg tablet RxNorm: 987457 1/2 Tablet(s) PO No Start Date 12/15/2014 Inactive Aricept 10 mg tablet RxNorm: 844596 Tablet(s) PO daily No Start Date 05/19/2015 Inactive Calmoseptine 0.44 %-20.6 % topical ointment RxNorm: 478237 1 Application TOP BID and as needed to sore on buttocks No Start Date 09/06/2016 Inactive Zithromax Z-Henrique 250 mg tablet RxNorm: 650675 1 Tablet(s) PO UD No Start Date 11/09/2015 Inactive zpack x 1 Medication Administered Medication Codes Instructions Start Date Status cyanocobalamin (vit B-12) 1,000 mcg/mL injection solution RxNorm: 297503 Milliliter 07/06/2017 No longer Active cyanocobalamin (vit B-12) 1,000 mcg/mL injection solution RxNorm: 792387 Milliliter 06/05/2017 No longer Active cyanocobalamin (vit B-12) 1,000 mcg/mL injection solution RxNorm: 434077 Milliliter 05/25/2017 No longer Active cyanocobalamin (vit B-12) 1,000 mcg/mL injection solution RxNorm: 184600 Milliliter 05/16/2017 No longer Active cyanocobalamin (vit B-12) 1,000 mcg/mL injection solution RxNorm: 084606 1Milliliter 05/01/2017 No longer Active cyanocobalamin (vit B-12) 1,000 mcg/mL injection solution RxNorm: 431334 Milliliter 04/18/2017 No longer Active cyanocobalamin (vit B-12) 1,000 mcg/mL injection solution RxNorm: 608469 [facility] 04/06/2017 No longer Active cyanocobalamin (vit B-12) 1,000 mcg/mL injection solution RxNorm: 070848 [facility] 03/22/2017 No longer Active cyanocobalamin (vit B-12) 1,000 mcg/mL injection solution RxNorm: 920532 [facility] 03/09/2017 No longer Active cyanocobalamin (vit B-12) 1,000 mcg/mL injection solution RxNorm: 287126 [facility] 02/23/2017 No longer Active cyanocobalamin (vit B-12) 1,000 mcg/mL injection solution RxNorm: 341869 [facility] 02/09/2017 No longer Active cyanocobalamin (vit B-12) 1,000 mcg/mL injection solution RxNorm: 384897 [facility] 01/23/2017 No longer Active cyanocobalamin (vit B-12) 1,000 mcg/mL injection solution RxNorm: 388849 [facility] 01/10/2017 No longer Active cyanocobalamin (vit B-12) 1,000 mcg/mL injection solution RxNorm: 988839 1[facility]iliter 12/28/2016 No longer Active cyanocobalamin (vit B-12) 1,000 mcg/mL injection solution RxNorm: 308566 [facility] 12/14/2016 No longer Active cyanocobalamin (vit B-12) 1,000 mcg/mL injection solution RxNorm: 783825 [facility] 11/24/2016 No longer Active cyanocobalamin (vit B-12) 1,000 mcg/mL injection solution RxNorm: 587280 1[facility]il[facility] 11/07/2016 No longer Active cyanocobalamin (vit B-12) 1,000 mcg/mL injection solution RxNorm: 012509 [facility] 10/24/2016 No longer Active cyanocobalamin (vit B-12) 1,000 mcg/mL injection solution RxNorm: 879319 1[facility]il[facility] 09/29/2016 No longer Active cyanocobalamin (vit B-12) 1,000 mcg/mL injection solution RxNorm: 440175 [facility] 08/29/2016 No longer Active cyanocobalamin (vit B-12) 1,000 mcg/mL injection solution RxNorm: 558798 [facility] 08/04/2016 No longer Active cyanocobalamin (vit B-12) 1,000 mcg/mL injection solution RxNorm: 204314 [facility] 07/21/2016 No longer Active cyanocobalamin (vit B-12) 1,000 mcg/mL injection solution RxNorm: 176190 1[facility]il[facility] 07/05/2016 No longer Active cyanocobalamin (vit B-12) 1,000 mcg/mL injection solution RxNorm: 639908 1[facility]il[facility] 06/22/2016 No longer Active cyanocobalamin (vit B-12) 1,000 mcg/mL injection solution RxNorm: 047792 [facility] 06/09/2016 No longer Active cyanocobalamin (vit B-12) 1,000 mcg/mL injection solution RxNorm: 098119 1[facility]il[facility] 05/25/2016 No longer Active cyanocobalamin (vit B-12) 1,000 mcg/mL injection solution RxNorm: 965814 [facility] 05/10/2016 No longer Active cyanocobalamin (vit B-12) 1,000 mcg/mL injection solution RxNorm: 378017 [facility] 04/26/2016 No longer Active cyanocobalamin (vit B-12) 1,000 mcg/mL injection solution RxNorm: 233959 [facility] 04/11/2016 No longer Active cyanocobalamin (vit B-12) 1,000 mcg/mL injection solution RxNorm: 251724 [facility] 03/31/2016 No longer Active cyanocobalamin (vit B-12) 1,000 mcg/mL injection solution RxNorm: 130413 1[facility]iliter 03/15/2016 No longer Active cyanocobalamin (vit B-12) 1,000 mcg/mL injection solution RxNorm: 220392 [facility] 02/25/2016 No longer Active cyanocobalamin (vit B-12) 1,000 mcg/mL injection solution RxNorm: 966829 1[facility]il[facility] 02/02/2016 No longer Active cyanocobalamin (vit B-12) 1,000 mcg/mL injection solution RxNorm: 551149 [facility] 01/18/2016 No longer Active cyanocobalamin (vit B-12) 1,000 mcg/mL injection solution RxNorm: 403312 [facility] 12/29/2015 No longer Active cyanocobalamin (vit B-12) 1,000 mcg/mL injection solution RxNorm: 071972 [facility] 12/08/2015 No longer Active cyanocobalamin (vit B-12) 1,000 mcg/mL injection solution RxNorm: 931036 [facility] 11/23/2015 No longer Active cyanocobalamin (vit B-12) 1,000 mcg/mL injection solution RxNorm: 619095 [facility] 11/11/2015 No longer Active cyanocobalamin (vit B-12) 1,000 mcg/mL injection solution RxNorm: 914716 1[facility]il[facility] 10/29/2015 No longer Active cyanocobalamin (vit B-12) 1,000 mcg/mL injection solution RxNorm: 811545 1[facility]il[facility] 10/12/2015 No longer Active cyanocobalamin (vit B-12) 1,000 mcg/mL injection solution RxNorm: 177389 1[facility]il[facility] 09/29/2015 No longer Active cyanocobalamin (vit B-12) 1,000 mcg/mL injection solution RxNorm: 445561 1[facility]il[facility] 09/17/2015 No longer Active cyanocobalamin (vit B-12) 1,000 mcg/mL injection solution RxNorm: 696217 1[facility]il[facility] 09/03/2015 No longer Active cyanocobalamin (vit B-12) 1,000 mcg/mL injection solution RxNorm: 447107 [facility] 08/17/2015 No longer Active cyanocobalamin (vit B-12) 1,000 mcg/mL injection solution RxNorm: 384131 [facility] 08/06/2015 No longer Active cyanocobalamin (vit B-12) 1,000 mcg/mL injection solution RxNorm: 566439 [facility] 07/22/2015 No longer Active cyanocobalamin (vit B-12) 1,000 mcg/mL injection solution RxNorm: 815873 [facility] 07/08/2015 No longer Active cyanocobalamin (vit B-12) 1,000 mcg/mL injection solution RxNorm: 442189 [facility] 06/23/2015 No longer Active cyanocobalamin (vit B-12) 1,000 mcg/mL injection solution RxNorm: 808224 1[facility]iliter 06/08/2015 No longer Active cyanocobalamin (vit B-12) 1,000 mcg/mL injection solution RxNorm: 931953 [facility] 05/27/2015 No longer Active cyanocobalamin (vit B-12) 1,000 mcg/mL injection solution RxNorm: 365816 1[facility]il[facility] 05/12/2015 No longer Active cyanocobalamin (vit B-12) 1,000 mcg/mL injection kit RxNorm : 739301 kit 04/30/2015 No longer Active cyanocobalamin (vit B-12) 1,000 mcg/mL injection solution RxNorm: 052421 [facility] 04/16/2015 No longer Active cyanocobalamin (vit B-12) 1,000 mcg/mL injection solution RxNorm: 281386 [facility] 04/02/2015 No longer Active cyanocobalamin (vit B-12) 1,000 mcg/mL injection solution RxNorm: 279076 [facility] 03/18/2015 No longer Active cyanocobalamin (vit B-12) 1,000 mcg/mL injection solution RxNorm: 296883 [facility] 03/03/2015 No longer Active cyanocobalamin (vit B-12) 1,000 mcg/mL injection solution RxNorm: 555344 [facility] 02/18/2015 No longer Active cyanocobalamin (vit B-12) 1,000 mcg/mL injection solution RxNorm: 805777 [facility] 02/04/2015 No longer Active cyanocobalamin (vit B-12) 1,000 mcg/mL injection solution RxNorm: 383749 [facility] 01/22/2015 No longer Active cyanocobalamin (vit B-12) 1,000 mcg/mL injection solution RxNorm: 955104 [facility] 01/08/2015 No longer Active cyanocobalamin (vit B-12) 1,000 mcg/mL injection solution RxNorm: 643693 [facility] 12/25/2014 No longer Active cyanocobalamin (vit B-12) 1,000 mcg/mL injection solution RxNorm: 004675 [facility] 12/10/2014 No longer Active cyanocobalamin (vit B-12) 1,000 mcg/mL injection solution RxNorm: 070422 [facility] 11/26/2014 No longer Active cyanocobalamin (vit B-12) 1,000 mcg/mL injection kit RxNorm : 319749 [facility] 11/12/2014 No longer Active cyanocobalamin (vit B-12) 1,000 mcg/mL injection solution RxNorm: 585848 [facility] 10/28/2014 No longer Active Immunizations Vaccine [...] Item Item Code Result Date Comp Metabolic Zxx728 NA 141 mEq/L 01/23/2017 Comp Metabolic Taa531 K 4.5 mEq/L 01/23/2017 Comp Metabolic Dfc100 CL 107 mEq/L 01/23/2017 Comp Metabolic Hlh864 CO2 21.0 mEq/L 01/23/2017 Comp Metabolic Sdt960 ANION GAP 18 01/23/2017 Comp Metabolic Efl988 GLUCOSE 138 mg/dL 01/23/2017 Comp Metabolic Nkl354 Creat 1.0 mg/dL 01/23/2017 Comp Metabolic Cez807 eGFR 56 ml/min/1.73m2 01/23/2017 Comp Metabolic Bpr726 BUN 26 mg/dL 01/23/2017 Comp Metabolic Fex587 B/C Ratio 25.7 Ratio 01/23/2017 Comp Metabolic Fwd698 CALCIUM 9.0 mg/dL 01/23/2017 Comp Metabolic Zme794 ALK PHOS 37 U/L 01/23/2017 Comp Metabolic Wyo227 AST(SGOT) 20 U/L 01/23/2017 Comp Metabolic Vwi098 ALT(SGPT) 25 U/L 01/23/2017 Comp Metabolic Xnw999 BILI T 0.9 mg/dL 01/23/2017 Comp Metabolic Qay011 ALBUMIN 3.8 g/dL 01/23/2017 Comp Metabolic Ery704 TPRO 6.5 g/dL 01/23/2017 Comp Metabolic Tkt769 GLOB 2.7 g/dL 01/23/2017 Comp Metabolic Xjj741 A/G Ratio 1.4 Ratio 01/23/2017 Comp Metabolic Etd271 Osmo 288 mOsmo 01/23/2017 Free T4 Wzy930 FREE T4 1.05 ng/dL 01/23/2017 %Hba1C Gmi772 % HbA1c 18701-4 6.1 % 01/23/2017 %Hba1C Skt319 Gluc Ave 128 mg/dL 01/23/2017 Tsh Ord6 hTSH II 1.68 uIU/mL 01/23/2017 Culture Urine [id number] URINE CULTURE SEE NOTES 11/10/2016 Culture Urine [id number] Continued Results 11/10/2016 Urine Culture Ucult Complete [...] Ord15 CALCIUM 9.3 mg/dL 09/29/2016 Free T4 Nxr621 FREE T4 0.99 ng/dL 09/07/2016 Cbc With Differential Ord2 WBC 6.40 K/ul 09/07/2016 Cbc With Differential Ord2 RBC 4.70 M/ul 09/07/2016 Cbc With Differential Ord2 HGB 14.1 g/dl 09/07/2016 Cbc With Differential Ord2 HCT 43.1 % 09/07/2016 Cbc With Differential Ord2 Neut% 60.3 % 09/07/2016 Cbc With Differential Ord2 MCV 91.7 fl 09/07/2016 Cbc With Differential Ord2 Lymph% 27.3 % 09/07/2016 Cbc With Differential Ord2 MCH 30.0 pg 09/07/2016 Cbc With Differential Ord2 Hardeman% 9.8 % 09/07/2016 Cbc With Differential Ord2 MCHC 32.7 pg 09/07/2016 Cbc With Differential Ord2 Eos% 2.0 % 09/07/2016 Cbc With Differential Ord2 Baso% 0.6 % 09/07/2016 Cbc With Differential Ord2 PLT 198 K/ul 09/07/2016 Cbc With Differential Ord2 RDW 14.5 % 09/07/2016 Cbc With Differential Ord2 Neut ABS# 3.85 K/ul 09/07/2016 Cbc With Differential Ord2 Lymph ABS# 1.75 K/ul 09/07/2016 Cbc With Differential Ord2 [place] ABS# 0.6 K/ul 09/07/2016 Cbc With Differential Ord2 Eos ABS# 0.1 K/ul 09/07/2016 Cbc With Differential Ord2 Baso ABS# 0.0 K/ul 09/07/2016 Tsh Ord6 hTSH II 1.41 uIU/mL 09/07/2016 Culture Urine [id number] URINE CULTURE SEE NOTES 06/27/2016 Lipid Ord30 CHOL 196 mg/dL 06/22/2016 Lipid Ord30 HDL 63.0 mg/dl 06/22/2016 Lipid Ord30 TRIG 154 mg/dL 06/22/2016 Lipid Ord30 LDL 102 mg/dL 06/22/2016 Lipid Ord30 C/HDL 3.1 Ratio 06/22/2016 Hepatic Vsm796 ALBUMIN 4.2 g/dL 06/22/2016 Hepatic Tuy836 TPRO 7.0 g/dL 06/22/2016 Hepatic Vbu101 GLOB 2.8 g/dL 06/22/2016 Hepatic Poq805 A/G Ratio 1.5 Ratio 06/22/2016 Hepatic Noh507 ALK PHOS 54 U/L 06/22/2016 Hepatic Eff939 ALT(SGPT) 30 U/L 06/22/2016 Hepatic Fbl754 AST(SGOT) 24 U/L 06/22/2016 Hepatic Ljg952 BILI T 1.1 mg/dL 06/22/2016 Hepatic Jvy332 BILI D 0.2 mg/dL 06/22/2016 Hepatic Uui069 BILI I 0.9 mg/dL 06/22/2016 Comp Metabolic Pkb905 NA 139 mEq/L 06/14/2016 Comp Metabolic Wde720 K 4.6 mEq/L 06/14/2016 Comp Metabolic Szv772 CL 108 mEq/L 06/14/2016 Comp Metabolic Tco181 CO2 22.0 mEq/L 06/14/2016 Comp Metabolic Qfb440 ANION GAP 14 06/14/2016 Comp Metabolic Gmx408 GLUCOSE 114 mg/dL 06/14/2016 Comp Metabolic Vhy017 Creat 1.2 mg/dL 06/14/2016 Comp Metabolic Hqw047 eGFR 48 ml/min/1.73m2 06/14/2016 Comp Metabolic Cft100 BUN 24 mg/dL 06/14/2016 Comp Metabolic Wgg727 B/C Ratio 20.9 Ratio 06/14/2016 Comp Metabolic Llr245 CALCIUM 9.9 mg/dL 06/14/2016 Comp Metabolic Imz740 ALK PHOS 47 U/L 06/14/2016 Comp Metabolic Wfs166 AST(SGOT) 28 U/L 06/14/2016 Comp Metabolic Obl250 ALT(SGPT) 32 U/L 06/14/2016 Comp Metabolic Cpk661 BILI T 0.9 mg/dL 06/14/2016 Comp Metabolic Oht950 ALBUMIN 4.1 g/dL 06/14/2016 Comp Metabolic Zgr710 TPRO 6.9 g/dL 06/14/2016 Comp Metabolic Doh329 GLOB 2.8 g/dL 06/14/2016 Comp Metabolic Kft622 A/G Ratio 1.5 Ratio 06/14/2016 Comp Metabolic Fuj013 Osmo 282 mOsmo 06/14/2016 Tsh Ord6 hTSH II 1.26 uIU/mL 06/14/2016 Free T4 Vvc302 FREE T4 1.09 ng/dL 06/14/2016 Tsh Ord6 hTSH II 0.28 uIU/mL 02/02/2016 Digoxin Ord9 DIGOXIN 0.7 NG/ML 02/02/2016 Free T4 Xuu217 FREE T4 1.23 ng/dL 02/02/2016 Hepatic Nzv177 ALBUMIN 4.0 g/dL 02/02/2016 Hepatic Elz203 TPRO 7.0 g/dL 02/02/2016 Hepatic Vrs726 GLOB 3.0 g/dL 02/02/2016 Hepatic Efd252 A/G Ratio 1.3 Ratio 02/02/2016 Hepatic Kxk940 ALK PHOS 57 U/L 02/02/2016 Hepatic Kcn116 ALT(SGPT) 62 U/L 02/02/2016 Hepatic Dik420 AST(SGOT) 54 U/L 02/02/2016 Hepatic Ooq293 BILI T 0.8 mg/dL 02/02/2016 Hepatic Mmt214 BILI D 0.2 mg/dL 02/02/2016 Hepatic Rsw799 BILI I 0.6 mg/dL 02/02/2016 Urine Culture Ucult Complete No Growth Day 2 11/25/2015 Urine Culture Ucult Preliminary No Growth Day 1 11/25/2015 Hepatic Ngw606 ALBUMIN 3.9 g/dL 11/11/2015 Hepatic Fpl524 TPRO 7.0 g/dL 11/11/2015 Hepatic Zze584 GLOB 3.1 g/dL 11/11/2015 Hepatic Oxu314 A/G Ratio 1.3 Ratio 11/11/2015 Hepatic Wld595 ALK PHOS 63 U/L 11/11/2015 Hepatic Ytq689 ALT(SGPT) 107 U/L 11/11/2015 Hepatic Rvl339 AST(SGOT) 101 U/L 11/11/2015 Hepatic Iwv326 BILI T 0.6 mg/dL 11/11/2015 Hepatic Yci333 BILI D 0.1 mg/dL 11/11/2015 Hepatic Xam426 BILI I 0.5 mg/dL 11/11/2015 Comp Metabolic Yag045 NA 138 mEq/L 10/29/2015 Comp Metabolic Lwh588 K 5.0 mEq/L 10/29/2015 Comp Metabolic Cra787 CL 105 mEq/L 10/29/2015 Comp Metabolic Hma949 CO2 23.0 mEq/L 10/29/2015 Comp Metabolic Vjc426 ANION GAP 15 10/29/2015 Comp Metabolic Iyr696 GLUCOSE 105 mg/dL 10/29/2015 Comp Metabolic Bvc516 Creat 1.0 mg/dL 10/29/2015 Comp Metabolic Men471 eGFR 55 ml/min/1.73m2 10/29/2015 Comp Metabolic Jln237 BUN 20 mg/dL 10/29/2015 Comp Metabolic Fqu319 B/C Ratio 19.4 Ratio 10/29/2015 Comp Metabolic Tqz543 CALCIUM 8.8 mg/dL 10/29/2015 Comp Metabolic Elu693 ALK PHOS 56 U/L 10/29/2015 Comp Metabolic Xrp642 AST(SGOT) 66 U/L 10/29/2015 Comp Metabolic Kas158 ALT(SGPT) 78 U/L 10/29/2015 Comp Metabolic Lea142 BILI T 0.7 mg/dL 10/29/2015 Comp Metabolic Uob379 ALBUMIN 3.6 g/dL 10/29/2015 Comp Metabolic Jrm659 TPRO 6.6 g/dL 10/29/2015 Comp Metabolic Hkt826 GLOB 3.0 g/dL 10/29/2015 Comp Metabolic Fld084 A/G Ratio 1.2 Ratio 10/29/2015 Comp Metabolic Rie787 Osmo 279 mOsmo 10/29/2015 Comp Metabolic Grl233 NA 136 mEq/L 09/03/2015 Comp Metabolic Ygi769 K 4.4 mEq/L 09/03/2015 Comp Metabolic Fdt699 CL 103 mEq/L 09/03/2015 Comp Metabolic Mzu250 CO2 24.0 mEq/L 09/03/2015 Comp Metabolic Mhr777 ANION GAP 13 09/03/2015 Comp Metabolic Upm227 GLUCOSE 87 mg/dL 09/03/2015 Comp Metabolic Nwz808 Creat 1.1 mg/dL 09/03/2015 Comp Metabolic Dtp373 eGFR 53 ml/min/1.73m2 09/03/2015 Comp Metabolic Mzp564 BUN 17 mg/dL 09/03/2015 Comp Metabolic Pzl423 B/C Ratio 16.2 Ratio 09/03/2015 Comp Metabolic Iko610 CALCIUM 9.0 mg/dL 09/03/2015 Comp Metabolic Lwl495 ALK PHOS 55 U/L 09/03/2015 Comp Metabolic Vov751 AST(SGOT) 83 U/L 09/03/2015 Comp Metabolic Zja157 ALT(SGPT) 126 U/L 09/03/2015 Comp Metabolic Hog887 BILI T 0.9 mg/dL 09/03/2015 Comp Metabolic Lrl101 ALBUMIN 3.9 g/dL 09/03/2015 Comp Metabolic Frj230 TPRO 6.8 g/dL 09/03/2015 Comp Metabolic Fxb328 GLOB 2.9 g/dL 09/03/2015 Comp Metabolic Dmq996 A/G Ratio 1.4 Ratio 09/03/2015 Comp Metabolic Bpn653 Osmo 273 mOsmo 09/03/2015 Total T3 Ord42 TT3 0.6 ng/ml 07/09/2015 Tsh Ord6 hTSH II 1.62 uIU/mL 07/09/2015 Total T3 Ord42 TT3 0.5 ng/ml 04/02/2015 Free T4 Ipw544 FREE T4 1.23 ng/dL 04/02/2015 Tsh Ord6 [...] normal 06/05/2017 None Full Exam - General 1995 Ears/Nose/Throat lips/teeth/gingiva Overall: benign lips 06/05/2017 None [...] clear 07/26/2016 None Full Exam - General 1995 Ears/Nose/Throat oral cavity/pharynx/larynx Overall: oropharyngeal mucosa clear [...] Procedure Codes Date THER/PROPH/DIAG INJ SC/IM CPT-4: 58792 07/06/2017 PPPS, SUBSEQ VISIT CPT -4: G0439 06/05/2017 THER/PROPH/DIAG INJ SC/IM CPT-4: 02764 06/05/2017 THER/PROPH/DIAG INJ SC/IM CPT-4: 77102 05/25/2017 VITAMIN B12 INJECTION CPT-4: J3420 05/25/2017 THER/PROPH/DIAG INJ SC/IM CPT-4: 79536 05/16/2017 THER/PROPH/DIAG INJ SC/IM CPT-4: 89421 05/01/2017 THER/PROPH/DIAG INJ SC/IM CPT-4: 90223 04/18/2017 THER/PROPH/DIAG INJ SC/IM CPT-4: 69805 04/06/2017 ADMIN INFLUENZA VIRUS VAC CPT-4: G0008 03/22/2017 FLU VACC PRSV FREE INC ANTIG CPT-4: 28773 03/22/2017 THER/PROPH/DIAG INJ SC/IM CPT-4: 93508 03/09/2017 THER/PROPH/DIAG INJ SC/IM CPT-4: 72958 02/23/2017 THER/PROPH/DIAG INJ SC/IM CPT-4: 26402 02/09/2017 THER/PROPH/DIAG INJ SC/IM CPT-4: 73074 01/23/2017 THER/PROPH/DIAG INJ SC/IM CPT-4: 81278 01/10/2017 THER/PROPH/DIAG INJ SC/IM CPT-4: 45198 12/28/2016 THER/PROPH/DIAG INJ SC/IM CPT-4: 20211 12/14/2016 THER/PROPH/DIAG INJ SC/IM CPT-4: 82916 11/24/2016 URINALYSIS NONAUTO W/O SCOPE CPT-4: 07592 11/07/2016 THER/PROPH/DIAG INJ SC/IM CPT-4: 99602 11/07/2016 THER/PROPH/DIAG INJ SC/IM CPT-4: 22157 10/24/2016 THER/PROPH/DIAG INJ SC/IM CPT-4: 74830 09/29/2016 THER/PROPH/DIAG INJ SC/IM CPT-4: 09052 08/29/2016 THER/PROPH/DIAG INJ SC/IM CPT-4: 49199 08/04/2016 THER/PROPH/DIAG INJ SC/IM CPT-4: 49286 07/21/2016 THER/PROPH/DIAG INJ SC/IM CPT-4: 36649 07/05/2016 THER/PROPH/DIAG INJ SC/IM CPT-4: 57929 06/22/2016 URINALYSIS NONAUTO W/O SCOPE CPT-4: 50909 06/22/2016 THER/PROPH/DIAG INJ SC/IM CPT-4: 39884 06/09/2016 PPPS, SUBSEQ VISIT CPT -4: G0439 05/30/2016 ADMIN PNEUMOCOCCAL VACCINE SNOMED CT: 47945386 CPT-4: G0009 05/25/2016 Pneumococcal Polysaccharide Vaccine, 23-Valent, Ad CPT-4: 00286 05/25/2016 THER/PROPH/DIAG INJ SC/IM CPT-4: 85686 05/25/2016 THER/PROPH/DIAG INJ SC/IM CPT-4: 04400 05/10/2016 TRIAMCINOLONE ACET INJ NOS CPT-4: J3301 04/26/2016 VITAMIN B12 INJECTION CPT-4: J3420 04/26/2016 THER/PROPH/DIAG INJ SC/IM CPT-4: 09811 04/11/2016 THER/PROPH/DIAG INJ SC/IM CPT-4: 67151 03/31/2016 ADMIN INFLUENZA VIRUS VAC CPT-4: G0008 03/15/2016 FLU VACC 4 STEPHANIE [address] YRS [address] IM SNOMED CT: 06742462 CPT-4: 14397 03/15/2016 THER/PROPH/DIAG INJ SC/IM CPT-4: 73958 02/25/2016 THER/PROPH/DIAG INJ SC/IM CPT-4: 18226 02/02/2016 THER/PROPH/DIAG INJ SC/IM CPT-4: 71692 01/18/2016 VITAMIN B12 INJECTION CPT-4: J3420 12/29/2015 THER/PROPH/DIAG INJ SC/IM CPT-4: 90407 12/29/2015 THER/PROPH/DIAG INJ SC/IM CPT-4: 87047 12/08/2015 THER/PROPH/DIAG INJ SC/IM CPT-4: 21388 11/23/2015 URINALYSIS NONAUTO W/O SCOPE CPT-4: 63497 11/23/2015 THER/PROPH/DIAG INJ SC/IM CPT-4: 66104 11/11/2015 THER/PROPH/DIAG INJ SC/IM CPT-4: 61752 10/29/2015 THER/PROPH/DIAG INJ SC/IM CPT-4: 79533 10/12/2015 VITAMIN B12 INJECTION CPT-4: J3420 10/12/2015 THER/PROPH/DIAG INJ SC/IM CPT-4: 35257 09/29/2015 THER/PROPH/DIAG INJ SC/IM CPT-4: 69428 09/17/2015 THER/PROPH/DIAG INJ SC/IM CPT-4: 87213 09/03/2015 THER/PROPH/DIAG INJ SC/IM CPT-4: 25207 08/17/2015 THER/PROPH/DIAG INJ SC/IM CPT-4: 57953 08/06/2015 THER/PROPH/DIAG INJ SC/IM CPT-4: 60187 07/22/2015 THER/PROPH/DIAG INJ SC/IM CPT-4: 49205 07/08/2015 THER/PROPH/DIAG INJ SC/IM CPT-4: 79122 06/23/2015 THER/PROPH/DIAG INJ SC/IM CPT-4: 83088 06/08/2015 THER/PROPH/DIAG INJ SC/IM CPT-4: 66816 05/27/2015 DESTRUCT PREMALG LESION CPT-4: 40702 05/19/2015 DESTRUCT PREMALG LES 2-14 CPT-4: 56834 05/19/2015 THER/PROPH/DIAG INJ SC/IM CPT-4: 96250 05/12/2015 VITAMIN B12 INJECTION CPT-4: J3420 05/12/2015 THER/PROPH/DIAG INJ SC/IM CPT-4: 05427 04/30/2015 VITAMIN B12 INJECTION CPT-4: J3420 04/30/2015 THER/PROPH/DIAG INJ SC/IM CPT-4: 81238 04/16/2015 THER/PROPH/DIAG INJ SC/IM CPT-4: 08108 04/02/2015 VITAMIN B12 INJECTION CPT-4: J3420 04/02/2015 THER/PROPH/DIAG INJ SC/IM CPT-4: 02692 03/18/2015 THER/PROPH/DIAG INJ SC/IM CPT-4: 39036 03/03/2015 THER/PROPH/DIAG INJ SC/IM CPT-4: 83768 02/18/2015 THER/PROPH/DIAG INJ SC/IM CPT-4: 31566 02/04/2015 VITAMIN B12 INJECTION CPT-4: J3420 02/04/2015 THER/PROPH/DIAG INJ SC/IM CPT-4: 16297 01/22/2015 THER/PROPH/DIAG INJ SC/IM CPT-4: 36602 01/08/2015 VITAMIN B12 INJECTION CPT-4: J3420 01/08/2015 THER/PROPH/DIAG INJ SC/IM CPT-4: 53104 12/25/2014 VITAMIN B12 INJECTION CPT-4: J3420 12/25/2014 THER/PROPH/DIAG INJ SC/IM CPT-4: 35749 12/10/2014 VITAMIN B12 INJECTION CPT-4: J3420 12/10/2014 THER/PROPH/DIAG INJ SC/IM CPT-4: 47579 11/26/2014 VITAMIN B12 INJECTION CPT-4: J3420 11/26/2014 THER/PROPH/DIAG INJ SC/IM CPT-4: 22456 11/12/2014 VITAMIN B12 INJECTION CPT-4: J3420 11/12/2014 THER/PROPH/DIAG INJ SC/IM CPT-4: 92736 10/28/2014 Vital Signs Date Vital 07/06/2017 Blood Pressure 1: 132/66 Code : 8480-6 BMI: 29.4 Code : 62036-2 Heart Rate 1 : 85 bpm Height: 5'6" SpO2: 97% Weight: 182 lbs 06/05/2017 BMI: 29.1 Code: 24638-6 Height: 5'6" Weight: 180 lbs 05/25/2017 Blood Pressure 1: 126/76 Code : 8480-6 BMI: 29.1 Code : 83436-4 Heart Rate 1 : 77 bpm Height: 5'6" SpO2: 97% Weight: 180 lbs 03/23/2017 Blood Pressure 1: 142/84 Code : 8480-6 BMI: 29.1 Code : 10935-6 Heart Rate 1 : 91 bpm Height: 5'6" SpO2: 97% Weight: 180 lbs 01/23/2017 Blood Pressure 1: 150/90 Code : 8480-6 BMI: 29.9 Code : 01090-7 Heart Rate 1 : 81 bpm Height: 5'6" SpO2: 97% Weight: 185 lbs 11/02/2016 Blood Pressure 1: 148/78 Code : 8480-6 BMI: 29.7 Code : 21578-8 Heart Rate 1 : 87 bpm Height: 5'6" SpO2: 97% Weight: 184 lbs 09/29/2016 Blood Pressure 1: 128/78 Code : 8480-6 BMI: 29.7 Code : 40115-0 Heart Rate 1 : 78 bpm Height: 5'6" SpO2: 98% Weight: 184 lbs 07/26/2016 Blood Pressure 1: 138/72 Code : 8480-6 BMI: 30.0 Code : 86589-2 Heart Rate 1 : 85 bpm Height: 5'6" SpO2: 97% Weight: 186 lbs 05/30/2016 Blood Pressure 1: 132/76 Code : 8480-6 BMI: 30.0 Code : 59245-9 Heart Rate 1 : 80 bpm Height: 5'6" SpO2: 98% Waist Measure (cm): 99 cm Weight: 186 lbs 05/25/2016 Blood Pressure 1: 132/76 Code : 8480-6 BMI: 30.0 Code : 80060-3 Heart Rate 1 : 80 bpm Height: 5'6" SpO2: 96% Weight: 186 lbs 02/25/2016 Blood Pressure 1: 110/64 Code : 8480-6 Heart Rate 1: 82 bpm Height: SpO2: 96% Weight: 01/25/2016 Blood Pressure 1: 118/70 Code : 8480-6 BMI: 30.0 Code : 27365-4 Heart Rate 1 : 78 bpm Height: 5'6" SpO2: 97% Weight: 186 lbs 11/11/2015 Blood Pressure 1: 128/82 Code : 8480-6 BMI: 29.2 Code : 80192-9 Heart Rate 1 : 86 bpm Height: 5'6" SpO2: 96% Temperature: 36.4 (C) / 97.6 (F) Weight: 181 lbs 10/12/2015 Blood Pressure 1: 118/70 Code : 8480-6 BMI: 29.2 Code : 08959-6 Heart Rate 1 : 81 bpm Height: 5'6" SpO2: 95% Weight: 181 lbs 09/03/2015 Blood Pressure 1: 138/78 Code : 8480-6 BMI: 29.9 Code : 18509-0 Heart Rate 1 : 88 bpm Height: 5'6" SpO2: 97% Weight: 185 lbs 05/19/2015 Blood Pressure 1: 146/78 Code : 8480-6 BMI: 30.0 Code : 48133-0 Heart Rate 1 : 66 bpm Height: 5'6" SpO2: 97% Weight: 186 lbs 05/12/2015 Blood Pressure 1: 120/70 Code : 8480-6 BMI: 29.9 Code : 20429-7 Heart Rate 1 : 89 bpm Height: 5'6" SpO2: 95% Weight: 185 lbs 01/13/2015 Blood Pressure 1: 140/90 Code : 8480-6 BMI: 30.3 Code : 98591-7 Heart Rate 1 : 84 bpm Height: 5'6" SpO2: 95% Weight: 188 lbs 12/16/2014 Blood Pressure 1: 140/82 Code : 8480-6 BMI: 29.5 Code : 37316-5 Heart Rate 1 : 86 bpm Height: [...] data Encounters Encounter Performer Location Codes Date ([id number]) [id number] EST. PATIENT, LEVEL IV Diagnosis: Atrophy of thyroid (acquired)[ICD10: E03.4] Diagnosis: Cough[ICD10: R05] Diagnosis: Laceration without foreign body of left forearm, initial encounter[ ICD10: S51.812A] Diagnosis: Candidiasis of skin and nail[ICD10: B37.2] Diagnosis: Other vitamin B12 deficiency anemias[ICD10: D51.8] Diagnosis: Slow transit constipation[ICD10: K59.01] Yarely Vega MD, [facility] CPT-4: 07017 07/06/2017 ([id number]) [id number] EST. PATIENT, LEVEL IV Diagnosis: Essential (primary) hypertension[ICD10: I10] Diagnosis: Chronic atrial fibrillation[ICD10: I48.2] Diagnosis: Atrophy of thyroid (acquired)[ICD10: E03.4] Diagnosis: 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 factor deficiency[ ICD10: D51.0] Yarely Vega MD, [facility] CPT-4: 64746 05/25/2017 [id number]) [id number] EST. PATIENT, LEVEL IV Diagnosis: Type 2 diabetes mellitus without complications[ICD10: E11.9] Diagnosis: Atrophy of thyroid (acquired)[ICD10: E03.4] Diagnosis: Chest pain on breathing[ICD10: R07.1] Diagnosis: Chondrocostal junction syndrome [Tietze][ICD10: M94.0] Diagnosis: Other fatigue[ICD10: R53.83] Yarely Vega MD, [facility] CPT- 4: 35666 03/23/2017 [id number]) [id number] EST. PATIENT, LEVEL IV Diagnosis: Type 2 diabetes mellitus without complications[ICD10: E11.9] Diagnosis: Essential (primary) hypertension[ICD10: I10] Diagnosis: Headache[ICD10: R51] Diagnosis: Atrophy of thyroid (acquired)[ICD10: E03.4] Diagnosis: Vitamin B12 deficiency anemia, unspecified[ICD10: D51.9] Yarely Vega MD, [facility] CPT-4: 30879 01/23/2017 [id number] EST. PATIENT, LEVEL III Diagnosis: Low back pain[ICD10: M54.5] Diagnosis: Pain in thoracic spine[ICD10: M54.6] Brianna Vega MD, [facility] CPT-4: 45871 11/02/2016 ([id number]) [id number] EST. PATIENT, LEVEL IV Diagnosis: Essential (primary) hypertension[ICD10: I10] Diagnosis: Other vitamin B12 deficiency anemias[ICD10: D51.8] Diagnosis: Generalized abdominal pain[ICD10: R10.84] Yarely Vega MD, [facility] CPT-4: 09034 09/29/2016 ([id number]) [id number] EST. PATIENT, LEVEL IV Diagnosis: Essential (primary) hypertension[ICD10: I10] Yarely Vega MD, [facility] CPT-4: 84186 07/26/2016 ([id number]) [id number] EST. PATIENT, LEVEL IV Diagnosis: Benign lipomatous neoplasm of skin and subcutaneous tissue of right leg[ICD10: D17.23] Diagnosis: Pain in right ankle and joints of right foot[ICD10: M25.571] Diagnosis: Encounter for immunization[ICD10: Z23] Diagnosis: Vitamin B12 deficiency anemia, unspecified[ICD10: D51.9] Yarely Vega MD, [facility] CPT-4: 50943 05/25/2016 [id number] EST. PATIENT, LEVEL III Diagnosis: Other chest pain[ICD10: R07.89] Diagnosis: Other vitamin B12 deficiency anemias[ICD10: D51.8] Brianna Vega MD, [facility] CPT-4: 91417 02/25/2016 ([id number]) 10882 EST. 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 PATIENT, LEVEL III Diagnosis: Other vitamin B12 deficiency anemias[ICD10: D51.8] Diagnosis: Acute nasopharyngitis [common cold][ICD10: J00] Diagnosis: Other allergic rhinitis[ICD10: J30.89] Brianna Vega MD, [facility] CPT-4: 27338 11/11/2015 ([id number]) 66325 EST. PATIENT, LEVEL IV Diagnosis: Essential tremor[ICD10: G25.0] Diagnosis: Chronic fatigue, unspecified[ICD10: R53.82] Diagnosis: Other hypersomnia[ICD10: G47.19] Diagnosis: Essential (primary) hypertension[ICD10: I10] Yarely Vega MD, [facility] CPT-4: 11512 10/12/2015 ([id number]) 79849 EST. PATIENT, LEVEL IV Diagnosis: Essential (primary) hypertension[ICD10: I10] Diagnosis: Chronic atrial fibrillation[ICD10: I48.2] Diagnosis: Abnormal levels of other serum enzymes[ICD10: R74.8] Diagnosis: Type 2 diabetes mellitus without complications[ICD10: E11.9] Diagnosis: Vitamin B12 deficiency anemia, unspecified[ICD10: D51.9] Yarely Vega MD, [facility] CPT-4: 67555 09/03/2015 ([id number]) 61853 EST. PATIENT, LEVEL III Diagnosis: Nausea[ICD10: R11.0] Diagnosis: Essential tremor[ICD10: G25.0] Diagnosis: Actinic keratosis[ICD10: L57.0] Yarely Vega MD, [facility] CPT- 4: 74490 05/19/2015 ([id number]) 39546 EST. PATIENT, LEVEL IV Diagnosis: Vitamin B12 deficiency anemia, unspecified[ICD10: D51.9] Diagnosis: Chronic atrial fibrillation[ICD10: I48.2] Diagnosis: Headache[ICD10: R51] Diagnosis: Chronic fatigue, unspecified[ICD10: R53.82] Diagnosis: Cervicalgia[ICD10: M54.2] Yarely Vega MD, [facility] CPT-4: 16553 05/12/2015 ([id number]) 12451 EST. PATIENT, LEVEL IV Diagnosis: ESSENTIAL HYPERTENSION[ICD9: 401.9] Diagnosis: Afib[ICD9: 427.31] Diagnosis: Anxiety[ICD9: 300.00] Diagnosis: Insomnia[ICD9: 780.52] Yarely Vega MD, [facility] CPT-4: 31707 01/13/2015 ([id number]) OFFICE VISIT, NEW - LEVEL 4 Diagnosis: Hypothyroidism[ICD9: 244.9] Diagnosis: DIABETES TYPE II[ICD9: 250.00] Diagnosis: ESSENTIAL HYPERTENSION[ICD9: 401.9] Diagnosis: Afib[ICD9: 427.31] Diagnosis: Anxiety[ICD9: 300.00] Diagnosis: B12 deficiency[ICD9: 266.2] Janet Vega MD, [facility] CPT-4: 28532 12/16/2014 Plan of Care Planned Activity Notes [...] and mucinex 07/06/2017 Appointment: Yare[facility] (15 min) Moderate 07/06/2017 Patient Education: Patient Medication Summary Completed 07/06/2017 Appointment: Brianna Otoole WPtel[facility] (15 min) Moderate 06/20/2017 Visit Plan: Medicare [...] Appointment: Injection 06/05/2017 Appointment: Bri[facility] Otoole [facility] [phone] [facility] [facility] - Annual Wellness Visit 06/05/2017 Patient [...] control. 05/25/2017 Appointment: [facility] [phone] [facility] (15 min) Moderate 05/25/2017 Patient Education: Patient [...] wall. Fatigue - pt to discuss with Restaurant Kitchen And Service Manager about the possibility of amiodarone causing her fatigue/malaise. 03/23/2017 Appointment: [facility] [phone] [facility] (15 min) Moderate 03/23/2017 Patient Education: Patient [...] daily. 01/23/2017 App[facility]ment: [facility] [phone] [facility] (15 min) Moderate 01/23/2017 Patient Education: Patient [...] improve. 11/02/2016 App[facility]ment: [facility] [phone] [facility] (15 min) Moderate 11/02/2016 Patient Education: [...] carafate 09/29/2016 Appointment: Yarely Vega WPtel: [phone] [facility] (15 min) Moderate 09/29/2016 Patient Education: Patient Medication Summary Completed 09/29/2016 Appointment: [facility] [phone] [facility] [place] (15 min) Moderate 09/27/2016 Appointment: [facility] [phone] [facility] [place] (15 min) Moderate 09/20/2016 Appointment: Yarely Vega WPtel: [facility] [place] (15 min) Moderate 09/20/2016 Patient Education: Patient Medication Summary Completed 09/06/2016 Appointment: [facility] [phone] [facility] [place] (15 min) Moderate 08/30/2016 Appointment: Injection [...] concerns. 07/26/2016 Appointment: [facility] [phone] [facility] (15 min) Moderate 07/26/2016 Patient Education: Patient [...] surrogate. 05/30/2016 App[facility]ment: Bri[facility] Otoole [facility] [phone] [facility] [facility] - Annual Wellness Visit 05/30/2016 [...] at bedtime 05/25/2016 Appointment: [facility] [phone] [facility] (15 min) Moderate 05/25/2016 Patient Education: Patient Medication Summary Completed 05/25/2016 Patient Education: Obesity Completed 05/25/2016 Care Plan: Referral Order SNOMED-CT : [id number] Pending 05/25/2016 Appointment: Injection 05/10/2016 Patient Education: Patient Medication Summary Completed 05/10/2016 Appointment: Injection 04/26/2016 Patient Education: Patient Medication Summary Completed 04/26/2016 Appointment: Injection 04/11/2016 Patient Education: Patient Medication Summary Completed 04/11/2016 Appointment: Injection 03/31/2016 Patient Education: Patient Medication Summary Completed 03/31/2016 Patient Education: Patient Medication Summary Completed 03/22/2016 Care Plan: [id number] Pending 03/22/2016 Appointment: Injection 03/15/2016 Patient Education: [...] any concerns. 02/25/2016 Appointment: Bri[facility] Otoole [facility] [phone] [facility] (15 min) Moderate 02/25/2016 Patient Education: [...] the patients recent sleep study - recommended [facility] home patient eval of pt - nocturnal [...] the patients recent sleep study - recommended [place] home patient eval of pt - nocturnal [...] case with Faiza's daughter who had left [facility]. She is interested in looking at assisted living facilities for her mom as Faiza's family is for assisted living placement sooner rather than later. 10/12/2015 Appointment: Yarely Vega WPtel: [facility] (15 min) Moderate 10/12/2015 Patient Education: Patient [...] Summary Completed 08/17/2015 Appointment: Yarely Vega WPtel: [phone] [facility] (15 min) Moderate 08/11/2015 Appointment: Injection 08/06/2015 [...] x 2 05/19/2015 Appointment: [facility] [phone] [facility] (30 min) Complex 05/19/2015 Patient Education: Patient [...] prn alprazolam. 01/13/2015 Appointment: Yarely Vega WPtel: [address] [place], [place] [address] (15 min) Moderate 01/13/2015 Patient Education: Patient [...] medications. 12/16/2014 Appointment: Janet [facility] [phone] [facility] [place] ([place]) New Patient 12/16/2014 Patient [...] their heart rate is becoming uncontrolled. . b12 injection . Hypertension - well controlled - continue [...] case with Faiza's daughter who had left [facility]. She is interested in looking at assisted living facilities for her mom as Faiza's family is for assisted living placement sooner rather than later. . Atrial Fibrillation - pt on chronic [...] and understands the consequences of over-medication. . Medicare Exam - today we discussed [...] DOPA paperwork for health care surrogate. . Low back pain- ongoing - will [...] pain is worsening or does not improve. melatonin can take 3mg to 10mg at [...] insomnia. Anxiety - continue with prn alprazolam. change priolosec to bedtime to see if [...] - cryotherapy of skin lesions x 2 increase norvasc from 5mg daily to 10mg [...] wall. Fatigue - pt to discuss with Restaurant Kitchen And Service Manager about the possibility of amiodarone causing her [...] the patients recent sleep study - recommended [employer] home patient eval of pt - nocturnal [...] the patients recent sleep study - recommended [place] home patient eval of pt - nocturnal oxygen study - will order - if positive oxygen concentrator with humidification. . Medicare Exam - today we discussed [...] spray in the nasal steroid allergy spray. liquid or dissolving B12 - 2000 units [...]
--- OUTSIDE RECORDS SUMMARY | 2017-09-17 09:53 | XMS REPORT | Continuity of Care Document ---
Author Author [facility] Organization [facility] Address Unknown Phone Unavailable Allergies Active Description Code Type Severity Reaction Onset Reported/Identified Relationship to Patient Clinical Status Yes codeine [id number] Drug Allergy Unknown N/A 09/09/2008 Yes hydrochlorothiazide [id number] Drug Allergy Unknown N/A 09/09/2008 Yes morphine [id number] Drug Allergy Unknown N/A 09/09/2008 Medications There [...] EGAN MD Ot 414.01 CORONARY ATHEROSCLEROSIS OF [place] CORON 12/21/2012 ARUNA EGAN MD Ot 427.0 [place] ATRIAL TACHYCARDIA 12/21/2012 ARUNA GEAN MD Ot 427.31 ATRIAL FIBRILLATION 12/21/2012 ARUNA [...] ARAGON MD Ot 414.01 CORONARY ATHEROSCLEROSIS OF [place] CORON 05/22/2014 CURT ARAGON MD Ot 416.8 [...] JENELLE NATION, PJ I Ot 593.2 11/18/2014 JENELEL NATION, PJ I Ot 789.00 11/18/2014 [place] N[place], ARUNA Vale Ot V76.12 11/18/2014 MADRIGAL-ALEXANDER PA, KYLE K Ot 272.4 11/18/2014 MADRIGAL-ALEXANDER PA, KYLE K Ot 396.3 11/18/2014 MADRIGAL-ALEXANDER PA, KYLE K Ot 397.0 11/18/2014 MADRIGAL-ALEXANDER PA, KYLE K Ot 401.9 11/18/2014 MADRGIAL-ALEXANDER PA, KYLE K Ot 414.00 11/18/2014 MADRIGAL-ALEXANDER [...] BERTHA Daniels Ot 427.31 01/14/2015 LUCIANO SALOMON CORK INSULATOR HELPER Ot 244.9 01/14/2015 LUCIANO SALOMON CORK INSULATOR HELPER Ot 787.20 03/10/2015 LUCIANO SALOMON CORK INSULATOR HELPER Ot V76.12 05/06/2015 KALIA DO, JAMES K [...] KYLE K Ot I25.10 06/30/2015 JACQUES QUINTANILLA, YKLE Hurst Ot I65.23 06/30/2015 [place], CURT Montes De Oca Ot E78.2 06/30/2015 [place], CURT Montes De Oca Ot I10 06/30/2015 CURT ARAGON MD Ot I25.10 07/15/2015 MINO GARCIA MD Ot K21.0 GASTRO-ESOPHAGEAL REFLUX DISEASE WITH ES 07/15/2015 MINO GARCIA MD Ot K44.9 DIAPHRAGMATIC HERNIA WITHOUT OBSTRUCTION 07/27/2015 LUCIANO SALOMON CORK INSULATOR HELPER Ot E04.1 10/05/2015 BERTHA DHALIWAL MD Ot Z51.81 ENCOUNTER FOR THERAPEUTIC DRUG LEVEL MON 10/05/2015 BERTHA DHALIWAL MD Ot Z79.899 OTHER CURING BIN OPERATOR (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 THERAPY 10/08/2015 BERTHA DHALIWAL MD Ot Z51.81 ENCOUNTER FOR THERAPEUTIC DRUG LEVEL MON 10/08/2015 BERTHA DHALIWAL MD Ot Z79.899 OTHER CURING BIN OPERATOR (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 THERAPY 10/22/2015 BERTHA DHALIWAL MD Ot Z51.81 ENCOUNTER FOR THERAPEUTIC DRUG LEVEL MON 10/22/2015 [place], BERTHA Daniels Ot Z79.899 OTHER SNF (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 THERAPY 11/08/2015 [place] NATION, FRANCISCO Hurst Ot J06.9 ACUTE UPPER RESPIRATORY INFECTION, UNSPE 01/06/2016 [place], ACRTER Saldivar Ot G47.33 OBSTRUCTIVE SLEEP APNEA (ADULT) [...] Saldivar Ot R06.83 SNORING 02/26/2016 NOEL ZARAGOZA CREDIT ADMINISTRATION OFFICER Ot M54.9 DORSALGIA, UNSPECIFIED 02/26/2016 NOEL ZARAGOZA CREDIT ADMINISTRATION OFFICER Ot R07.9 CHEST PAIN, UNSPECIFIED 02/26/2016 NOEL ZARAGOZA CREDIT ADMINISTRATION OFFICER Ot R61 GENERALIZED HYPERHIDROSIS 02/26/2016 NOEL ZARAGOZA CREDIT ADMINISTRATION OFFICER Ot M54.9 DORSALGIA, UNSPECIFIED 02/26/2016 NOEL ZARAGOZA CREDIT ADMINISTRATION OFFICER Ot R07.9 CHEST PAIN, UNSPECIFIED 02/26/2016 NOEL ZARAGOZA CREDIT ADMINISTRATION OFFICER Ot R61 GENERALIZED HYPERHIDROSIS 03/07/2016 Ot 611.71 [...] Ot 427.31 ATRIAL FIBRILLATION 03/07/2016 LUCIANO SALOMON CORK INSULATOR HELPER Ot 244.9 HYPOTHYROIDISM NOS 03/07/2016 LUCIANO SALOMON CORK INSULATOR HELPER Ot 787.20 DYSPHAGIA, UNSPECIFIED 03/07/2016 LUCIANO SALOMON CORK INSULATOR HELPER Ot V76.12 OTH SCREEN MAMMO-MALIGN NEOPLASM OF [place] 03/07/2016 KYLE YANG Ot E78.2 MIXED HYPERLIPIDEMIA 03/07/2016 KYLE YANG Ot I10 ESSENTIAL (PRIMARY) HYPERTENSION 03/07/2016 KYLE YANG Ot I25.10 ATHSCL HEART DISEASE OF [place] CORONARY 03/07/2016 KYLE YANG Ot I65.23 OCCLUSION AND STENOSIS OF [place] 03/07/2016 CURT ARAGON MD Ot E78.2 MIXED HYPERLIPIDEMIA 03/07/2016 CURT ARAGON MD Ot I10 ESSENTIAL (PRIMARY) HYPERTENSION 03/07/2016 CURT ARAGON MD Ot I25.10 ATHSCL HEART DISEASE OF [place] CORONARY 03/07/2016 [place], CARTER Saldivar Ot M25.511 PAIN IN RIGHT SHOULDER 03/07/2016 CARTER BADILLO MD Ot M54.2 CERVICALGIA 03/07/2016 LUCIANO SALOMON CORK INSULATOR HELPER Ot E04.1 NONTOXIC SINGLE THYROID NODULE 03/07/2016 [place] NATION, MINO Ot R13.10 DYSPHAGIA, UNSPECIFIED 03/07/2016 [place], MINO Ot Z01.818 ENCOUNTER FOR OTHER PREPROCEDURAL EXAMIN 03/07/2016 [place], BERTHA Daniels Ot Z51.81 ENCOUNTER FOR THERAPEUTIC DRUG LEVEL MON 03/07/2016 [place], BERTHA Daniels Ot Z79.899 OTHER SNF (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 THERAPY 03/07/2016 NOEL ZARAGOZA APRN [...] MAMMOGRAM FOR MALIGNANT NE 03/08/2016 NOEL ZARAGOZA CREDIT ADMINISTRATION OFFICER Ot Z12.31 ENCNTR SCREEN MAMMOGRAM FOR MALIGNANT NE 03/17/2016 NOEL ZARAGOZA CREDIT ADMINISTRATION OFFICER Ot M54.9 DORSALGIA, UNSPECIFIED 03/17/2016 NOEL ZARAGOZA CREDIT ADMINISTRATION OFFICER Ot R07.9 CHEST PAIN, UNSPECIFIED 03/17/2016 NOEL ZARAGOZA CREDIT ADMINISTRATION OFFICER Ot R61 GENERALIZED HYPERHIDROSIS 03/17/2016 NOEL ZARAGOZA CREDIT ADMINISTRATION OFFICER Ot Z12.31 ENCNTR SCREEN MAMMOGRAM FOR MALIGNANT [...] Ot 427.31 ATRIAL FIBRILLATION 06/30/2016 LUCIANO SALOMON CORK INSULATOR HELPER Ot 244.9 HYPOTHYROIDISM NOS 06/30/2016 LUCIANO SALOMON CORK INSULATOR HELPER Ot 787.20 DYSPHAGIA, UNSPECIFIED 06/30/2016 LUCIANO SALOMON CORK INSULATOR HELPER Ot V76.12 OTH SCREEN MAMMO-MALIGN NEOPLASM OF [place] 06/30/2016 JACQUES QUINTANILLA KYLE Natali Ot E78.2 MIXED HYPERLIPIDEMIA 06/30/2016 JACQUES QUINTANILLA KYLE K Ot I10 ESSENTIAL (PRIMARY) HYPERTENSION 06/30/2016 JACQUES QUINTANILLA KYLE Natali Ot I25.10 ATHSCL HEART DISEASE OF [place] CORONARY 06/30/2016 JACQUES QUINTANILLA KYLE Natali Ot I65.23 OCCLUSION AND STENOSIS OF [place] 06/30/2016 CURT ARAGON MD Ot E78.2 MIXED HYPERLIPIDEMIA 06/30/2016 CURT ARAGON MD Ot I10 ESSENTIAL (PRIMARY) HYPERTENSION 06/30/2016 CURT ARAGON MD Ot I25.10 ATHSCL HEART DISEASE OF [place] CORONARY 06/30/2016 [place], CARTER Saldivar Ot M25.511 PAIN IN RIGHT SHOULDER 06/30/2016 [place], CARTER Saldivar Ot M54.2 CERVICALGIA 06/30/2016 LUCIANO SALOMON CORK INSULATOR HELPER Ot E04.1 NONTOXIC SINGLE THYROID NODULE 06/30/2016 [place], MINO Ot R13.10 DYSPHAGIA, UNSPECIFIED 06/30/2016 MINO GARCIA MD Ot Z01.818 ENCOUNTER FOR OTHER PREPROCEDURAL EXAMIN 06/30/2016 BERTHA DHALIWAL MD Ot Z51.81 ENCOUNTER FOR THERAPEUTIC DRUG LEVEL MON 06/30/2016 BERTHA DHALIWAL MD Ot Z79.899 OTHER SNF (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 THERAPY 06/30/2016 NOEL ZARAGOZA CREDIT ADMINISTRATION OFFICER Ot M54.9 DORSALGIA, UNSPECIFIED 06/30/2016 NOEL ZARAGOZA CREDIT ADMINISTRATION OFFICER Ot R07.9 CHEST PAIN, UNSPECIFIED 06/30/2016 NOEL ZARAGOZA CREDIT ADMINISTRATION OFFICER Ot R61 GENERALIZED HYPERHIDROSIS 06/30/2016 NKINOEL CREDIT ADMINISTRATION OFFICER Ot Z12.31 ENCNTR SCREEN MAMMOGRAM FOR MALIGNANT [...] NOS TYPE VESSEL, NATIV 06/30/2016 JACQUES QUINTANILLA YKLE Hurst Ot 786.50 CHEST PAIN NOS 06/30/2016 [place], BERTHA P Ot 427.31 ATRIAL FIBRILLATION 06/30/2016 LUCIANO SALOMON CORK INSULATOR HELPER Ot 244.9 HYPOTHYROIDISM NOS 06/30/2016 LUCIANO SALOMON CORK INSULATOR HELPER Ot 787.20 DYSPHAGIA, UNSPECIFIED 06/30/2016 LUCIANO SALOMON CORK INSULATOR HELPER Ot V76.12 OTH SCREEN MAMMO-MALIGN NEOPLASM OF [place] 06/30/2016 JACQUES QUINTANILLA KYLE K Ot E78.2 MIXED HYPERLIPIDEMIA 06/30/2016 JACQUES QUINTANILLA KYLE K Ot I10 ESSENTIAL (PRIMARY) HYPERTENSION 06/30/2016 JACQUES QUINTANILLA KYLE K Ot I25.10 ATHSCL HEART DISEASE OF [place] CORONARY 06/30/2016 JACQUES QUINTANILLA KYLE Natali Ot I65.23 OCCLUSION AND STENOSIS OF [place] 06/30/2016 [place], CURT Montes De Oca Ot E78.2 MIXED HYPERLIPIDEMIA 06/30/2016 CURT ARAGON MD Ot I10 ESSENTIAL (PRIMARY) HYPERTENSION 06/30/2016 CURT ARAGON MD Ot I25.10 ATHSCL HEART DISEASE OF [place] CORONARY 06/30/2016 [place], CARTER Saldivar Ot M25.511 PAIN IN RIGHT SHOULDER 06/30/2016 [place], CARTER Saldivar Ot M54.2 CERVICALGIA 06/30/2016 SALOMON, LUCIANO M CORK INSULATOR HELPER Ot E04.1 NONTOXIC SINGLE THYROID NODULE 06/30/2016 [place], MINO Ot R13.10 DYSPHAGIA, UNSPECIFIED 06/30/2016 [place], MINO Ot Z01.818 ENCOUNTER FOR OTHER PREPROCEDURAL EXAMIN 06/30/2016 BERTHA DHALIWAL MD Ot Z51.81 ENCOUNTER FOR THERAPEUTIC DRUG LEVEL MON 06/30/2016 BERTHA DHALIWAL MD Ot Z79.899 OTHER SNF (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 THERAPY 06/30/2016 NOEL ZARAGOZA CREDIT ADMINISTRATION OFFICER Ot M54.9 DORSALGIA, UNSPECIFIED 06/30/2016 NOEL ZARAGOZA CREDIT ADMINISTRATION OFFICER Ot R07.9 CHEST PAIN, UNSPECIFIED 06/30/2016 NOEL ZARAGOZA CREDIT ADMINISTRATION OFFICER Ot R61 GENERALIZED HYPERHIDROSIS 06/30/2016 NOEL ZARAGOZA CREDIT ADMINISTRATION OFFICER Ot Z12.31 ENCNTR SCREEN MAMMOGRAM FOR MALIGNANT [...] MD Ot I25.10 ATHSCL HEART DISEASE OF [place] CORONARY 08/09/2016 CARTER BADILLO MD Ot I51.7 [...] INITIAL 08/20/2016 TAD BOSS Ot Z79.899 OTHER SNF (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 THERAPY 08/20/2016 TAD BOSS Ot Z95.0 PRESENCE OF CARDIAC PACEMAKER 08/21/2016 TAD BOSS Ot T81.4XXA INFECTION FOLLOWING A PROCEDURE, INITIAL 08/22/2016 TAD BOSS Ot I10 ESSENTIAL (PRIMARY) HYPERTENSION 08/22/2016 TAD BOSS Ot L76.31 POSTPROC HEMATOMA OF SKIN, SUBCU FOL A D 08/22/2016 TAD BOSS Ot T81.4XXA INFECTION FOLLOWING A PROCEDURE, INITIAL 08/22/2016 TAD BOSS Ot Z79.899 OTHER SNF (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 THERAPY 08/22/2016 TAD BOSS Ot [...] Ot 427.31 ATRIAL FIBRILLATION 09/16/2016 LUCIANO SALOMON CORK INSULATOR HELPER Ot 244.9 HYPOTHYROIDISM NOS 09/16/2016 LUCIANO SALOMON CORK INSULATOR HELPER Ot 787.20 DYSPHAGIA, UNSPECIFIED 09/16/2016 LUCIANO SALOMON CORK INSULATOR HELPER Ot V76.12 OTH SCREEN MAMMO-MALIGN NEOPLASM OF [place] 09/16/2016 KYLE YANG K Ot E78.2 MIXED HYPERLIPIDEMIA 09/16/2016 AURA YANGTH K Ot I10 ESSENTIAL (PRIMARY) HYPERTENSION 09/16/2016 KYLE YANG K Ot I25.10 ATHSCL HEART DISEASE OF [place] CORONARY 09/16/2016 KYLE YANG Ot I65.23 OCCLUSION AND STENOSIS OF [place] 09/16/2016 CURT ARAGON MD Ot E78.2 MIXED HYPERLIPIDEMIA 09/16/2016 CURT ARAGON MD Ot I10 ESSENTIAL (PRIMARY) HYPERTENSION 09/16/2016 CURT ARAGON MD Ot I25.10 ATHSCL HEART DISEASE OF [place] CORONARY 09/16/2016 CARTER BADILLO MD Ot M25.511 [...] 09/16/2016 BERTHA DHALIWAL MD Ot Z79.899 OTHER SNF (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 THERAPY 09/16/2016 NOEL ZARAGOZA CREDIT ADMINISTRATION OFFICER Ot M54.9 DORSALGIA, UNSPECIFIED 09/16/2016 NOEL ZARAGOZA CREDIT ADMINISTRATION OFFICER Ot R07.9 CHEST PAIN, UNSPECIFIED 09/16/2016 NOEL ZARAGOZA CREDIT ADMINISTRATION OFFICER Ot R61 GENERALIZED HYPERHIDROSIS 09/16/2016 NOEL ZARAGOZA CREDIT ADMINISTRATION OFFICER Ot Z12.31 ENCNTR SCREEN MAMMOGRAM FOR MALIGNANT NE 09/16/2016 STAN TUCKERM, SNOW Frias Ot 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 09/16/2016 KYLE YANG Ot 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, 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 09/16/2016 CARTER BADILLO MD Ot E04.2 NONTOXIC MULTINODULAR GOITER 09/16/2016 CARTER BADILLO MD Ot I25.10 ATHSCL HEART DISEASE OF [place] CORONARY 09/16/2016 CARTER BADILLO MD Ot I51.7 [...] 09/19/2016 BERTHA DHALIWAL MD Ot Z79.899 OTHER CURING BIN OPERATOR (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 THERAPY 10/10/2016 BERTHA DHALIWAL MD, Ot J44.9 CHRONIC OBSTRUCTIVE PULMONARY DISEASE, U 10/10/2016 BERTHA DHALIWAL MD, Ot K44.9 DIAPHRAGMATIC HERNIA WITHOUT OBSTRUCTION 10/10/2016 BERTHA DHALIWAL MD Ot Z51.81 ENCOUNTER FOR THERAPEUTIC DRUG LEVEL MON 10/10/2016 BERTHA DHALIWAL MD Ot Z79.899 OTHER CURING BIN OPERATOR (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 THERAPY 10/28/2016 ANJELICA HUBBARD MD, [...] Ot 427.31 ATRIAL FIBRILLATION 12/23/2016 LUCIANO SALOMON CORK INSULATOR HELPER Ot 244.9 HYPOTHYROIDISM NOS 12/23/2016 LUCIANO SALOMON CORK INSULATOR HELPER Ot 787.20 DYSPHAGIA, UNSPECIFIED 12/23/2016 LUCIANO SALOMON CORK INSULATOR HELPER Ot V76.12 OTH SCREEN MAMMO-MALIGN NEOPLASM OF [place] 12/23/2016 KYLE YANG Ot E78.2 MIXED HYPERLIPIDEMIA 12/23/2016 KYLE YANG Ot I10 ESSENTIAL (PRIMARY) HYPERTENSION 12/23/2016 KYLE YANG Ot I25.10 ATHSCL HEART DISEASE OF [place] CORONARY 12/23/2016 KYLE YANG Ot I65.23 OCCLUSION AND STENOSIS OF [place] 12/23/2016 CURT ARAGON MD Ot E78.2 MIXED HYPERLIPIDEMIA 12/23/2016 CURT ARAGON MD, Ot I10 ESSENTIAL (PRIMARY) HYPERTENSION 12/23/2016 CURT ARAGON MD Ot I25.10 ATHSCL HEART DISEASE OF [place] CORONARY 12/23/2016 CARTER BADILLO MD Ot M25.511 PAIN IN RIGHT SHOULDER 12/23/2016 CARTER BADILLO MD Ot M54.2 CERVICALGIA 12/23/2016 LUCIANO SALOMON CORK INSULATOR HELPER Ot E04.1 NONTOXIC SINGLE THYROID NODULE 12/23/2016 MINO GARCIA MD Ot R13.10 DYSPHAGIA, UNSPECIFIED 12/23/2016 MINO GARCIA MD Ot Z01.818 ENCOUNTER FOR OTHER PREPROCEDURAL EXAMIN 12/23/2016 [place], BERTHA Daniels Ot Z51.81 ENCOUNTER FOR THERAPEUTIC DRUG LEVEL MON 12/23/2016 [place], BERTHA Daniels Ot Z79.899 OTHER CURING BIN OPERATOR (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 THERAPY 12/23/2016 NOEL ZARAGOZA APRN [...] Saldivar Ot I25.10 ATHSCL HEART DISEASE OF [place] CORONARY 12/23/2016 [place], CARTER Saldivar Ot [...] [place], BERTHA Daniels Ot Z79.899 OTHER CURING BIN OPERATOR (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 THERAPY 12/29/2016 MELY METCALF DO [...] F41.9 ANXIETY DISORDER, UNSPECIFIED 03/02/2017 NOEL ZARAGOZA CREDIT ADMINISTRATION OFFICER Ot Z12.31 ENCNTR SCREEN MAMMOGRAM FOR MALIGNANT NE 03/08/2017 NOEL ZARAGOZA CREDIT ADMINISTRATION OFFICER Ot Z12.31 ENCNTR SCREEN MAMMOGRAM FOR MALIGNANT NE 03/15/2017 NOEL ZARAGOZA CREDIT ADMINISTRATION OFFICER Ot Z12.31 ENCNTR SCREEN MAMMOGRAM FOR MALIGNANT NE 03/30/2017 NOEL ZARAGOZA CREDIT ADMINISTRATION OFFICER Ot Z12.31 ENCNTR SCREEN MAMMOGRAM FOR MALIGNANT NE 04/17/2017 NOEL ZARAGOZA CREDIT ADMINISTRATION OFFICER Ot Z12.31 ENCNTR SCREEN MAMMOGRAM FOR MALIGNANT [...] Ot 427.31 ATRIAL FIBRILLATION 04/27/2017 LUCIANO SALOMON CORK INSULATOR HELPER Ot 244.9 HYPOTHYROIDISM NOS 04/27/2017 LUCIANO SALOMON CORK INSULATOR HELPER Ot 787.20 DYSPHAGIA, UNSPECIFIED 04/27/2017 LUCIANO SALOMON CORK INSULATOR HELPER Ot V76.12 OTH SCREEN MAMMO-MALIGN NEOPLASM OF [place] 04/27/2017 KYLE YANG Ot E78.2 MIXED HYPERLIPIDEMIA 04/27/2017 KYLE YANG K Ot I10 ESSENTIAL (PRIMARY) HYPERTENSION 04/27/2017 KYLE YANG Ot I25.10 ATHSCL HEART DISEASE OF [place] CORONARY 04/27/2017 KYLE YANG Ot I65.23 OCCLUSION AND STENOSIS OF [place] 04/27/2017 CURT ARAGON MD Ot E78.2 MIXED HYPERLIPIDEMIA 04/27/2017 CURT ARAGON MD Ot I10 ESSENTIAL (PRIMARY) HYPERTENSION 04/27/2017 CURT ARAGON MD Ot I25.10 ATHSCL HEART DISEASE OF [place] CORONARY 04/27/2017 CARTER BADILLO MD Ot M25.511 [...] 04/27/2017 BERTHA DHALIWAL MD Ot Z79.899 OTHER CURING BIN OPERATOR (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 THERAPY 04/27/2017 NOEL ZARAGOZA CREDIT ADMINISTRATION OFFICER Ot M54.9 DORSALGIA, UNSPECIFIED 04/27/2017 NOEL ZARAGOZA CREDIT ADMINISTRATION OFFICER Ot R07.9 CHEST PAIN, UNSPECIFIED 04/27/2017 NOEL ZARAGOZA CREDIT ADMINISTRATION OFFICER Ot R61 GENERALIZED HYPERHIDROSIS 04/27/2017 NOEL ZARAGOZA CREDIT ADMINISTRATION OFFICER Ot Z12.31 ENCNTR SCREEN MAMMOGRAM FOR MALIGNANT NE 04/27/2017 STAN DPM, SONW Frias Ot 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 04/27/2017 KYLE YANG Ot 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, 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 04/27/2017 CARTER BADILLO MD Ot E04.2 NONTOXIC MULTINODULAR GOITER 04/27/2017 CARTER BADILLO MD Ot I25.10 ATHSCL HEART DISEASE OF [place] CORONARY 04/27/2017 CARTER BADILLO MD Ot I51.7 CARDIOMEGALY 04/27/2017 CARTER BADILLO MD Ot 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, 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 04/27/2017 ABY MD, CARTER A Ot K44.9 DIAPHRAGMATIC HERNIA WITHOUT OBSTRUCTION 04/27/2017 [place], BERTHA Daniels Ot J44.9 CHRONIC OBSTRUCTIVE PULMONARY DISEASE, U 04/27/2017 BERTHA DHALIWAL MD Ot K44.9 DIAPHRAGMATIC HERNIA WITHOUT OBSTRUCTION 04/27/2017 BERTHA DHALIWAL MD Ot Z51.81 ENCOUNTER FOR THERAPEUTIC DRUG LEVEL MON 04/27/2017 BERTHA DHALIWAL MD Ot Z79.899 OTHER CURING BIN OPERATOR (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 THERAPY 04/27/2017 MELY METCALF DO Ot E66.9 OBESITY, UNSPECIFIED 04/27/2017 MELY METCALF DO M Ot F03.90 UNSPECIFIED DEMENTIA WITHOUT BEHAVIORAL 04/27/2017 MELY METCALF DO Ot F41.9 ANXIETY DISORDER, UNSPECIFIED 04/27/2017 NOEL ZARAGOZA APRN Ot Z12.31 ENCNTR SCREEN MAMMOGRAM FOR MALIGNANT NE 04/28/2017 BERTHA DHALIWAL MD Ot I51.7 CARDIOMEGALY 04/28/2017 BERTHA DHALIWAL MD Ot K44.9 DIAPHRAGMATIC HERNIA WITHOUT OBSTRUCTION 04/28/2017 BERTHA DHALIWAL MD Ot Z79.899 OTHER CURING BIN OPERATOR (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 THERAPY 05/22/2017 BERTHA DHALIWAL MD Ot I51.7 CARDIOMEGALY 05/22/2017 BERTHA DHALIWAL MD Ot K44.9 DIAPHRAGMATIC HERNIA WITHOUT OBSTRUCTION 05/22/2017 BERTHA DHALIWAL MD Ot Z79.899 OTHER SNF (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 THERAPY 06/07/2017 BERTHA DHALIWAL MD Ot I51.7 CARDIOMEGALY 06/07/2017 BERTHA DHALIWAL MD Ot K44.9 DIAPHRAGMATIC HERNIA WITHOUT OBSTRUCTION 06/07/2017 BERTHA DHALIWAL MD Ot Z79.899 OTHER CURING BIN OPERATOR (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 THERAPY 06/22/2017 Ot 793.80 UNSPEC ABNORMAL MAMMOGRAM 06/22/2017 Ot V72.84 EXAM PRE- OPERATIVE NOS 06/22/2017 [place], ARUNA Vale Ot 611.71 MASTODYNIA 06/22/2017 [place], CURT Montes De Oca Ot 401.9 HYPERTENSION NOS 06/22/2017 [place], CURT Montes De Oca Ot 414.00 CORON ATHEROSCLER NOS TYPE VESSEL, NATIV 06/22/2017 [place], CURT Montes De Oca Ot 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 OCCLUSION NOS W CEREBRAL IN 06/22/2017 [place] NATION, PJ I Ot 553.3 DIAPHRAGMATIC HERNIA 06/22/2017 [place], PJ I Ot 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, ACQUIRED 06/22/2017 [place], PJ I Ot 789.00 ABDOMINAL PAIN, UNSPECIFIED SITE 06/22/2017 [place], ARUNA Vale Ot V76.12 OTH SCREEN MAMMO-MALIGN NEOPLASM OF [place] 06/22/2017 KYLE YANG K Ot 272.4 HYPERLIPIDEMIA NEC/NOS 06/22/2017 JACQUES QUINTANILLA, KYLE K Ot 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 06/22/2017 AURA YANGTH K Ot 397.0 TRICUSPID VALVE DISEASE 06/22/2017 AURA YANGTH K Ot 401.9 HYPERTENSION NOS 06/22/2017 KYLE YANG K Ot 414.00 CORON ATHEROSCLER NOS TYPE VESSEL, NATIV 06/22/2017 KYLE YANG K Ot 429.3 CARDIOMEGALY 06/22/2017 JACQUES QUINTANILLA KYLE K Ot 786.50 CHEST PAIN NOS 06/22/2017 AURA YANGTH K Ot 272.4 HYPERLIPIDEMIA NEC/NOS 06/22/2017 AURA YANGTH K Ot 401.9 HYPERTENSION NOS 06/22/2017 JACQUES QUINTANILLA, KYLE K Ot 414.00 CORON ATHEROSCLER NOS TYPE VESSEL, NATIV 06/22/2017 AURA YANGTH K Ot 786.50 CHEST PAIN NOS 06/22/2017 [place], BERTHA Daniels Ot 427.31 ATRIAL FIBRILLATION 06/22/2017 LUCIANO SALOMON CORK INSULATOR HELPER Ot 244.9 HYPOTHYROIDISM NOS 06/22/2017 LUCIANO SALOMON CORK INSULATOR HELPER Ot 787.20 DYSPHAGIA, UNSPECIFIED 06/22/2017 LUCIANO SALOMON CORK INSULATOR HELPER Ot V76.12 OTH SCREEN MAMMO-MALIGN NEOPLASM OF [place] 06/22/2017 KYLE YANG K Ot E78.2 MIXED HYPERLIPIDEMIA 06/22/2017 SUE YANGDITH K Ot I10 ESSENTIAL (PRIMARY) HYPERTENSION 06/22/2017 AURA YANGTH K Ot I25.10 ATHSCL HEART DISEASE OF [place] CORONARY 06/22/2017 KYLE YANG Ot I65.23 OCCLUSION AND STENOSIS OF [place] 06/22/2017 CURT ARAGON MD Ot E78.2 MIXED HYPERLIPIDEMIA 06/22/2017 CURT ARAGON MD Ot I10 ESSENTIAL (PRIMARY) HYPERTENSION 06/22/2017 CURT ARAGON MD Ot I25.10 ATHSCL HEART DISEASE OF [place] CORONARY 06/22/2017 CARTER BADILLO MD Ot M25.511 PAIN IN RIGHT SHOULDER 06/22/2017 CARTER BADILLO MD Ot M54.2 CERVICALGIA 06/22/2017 LUCIANO SALOMON Ot E04.1 NONTOXIC SINGLE THYROID NODULE 06/22/2017 MINO GARCIA MD Ot R13.10 DYSPHAGIA, UNSPECIFIED 06/22/2017 MINO GARCIA MD Ot Z01.818 ENCOUNTER FOR OTHER PREPROCEDURAL EXAMIN 06/22/2017 BERTHA DHALIWAL MD Ot Z51.81 ENCOUNTER FOR THERAPEUTIC DRUG LEVEL MON 06/22/2017 BERTHA DHALIWAL MD Ot Z79.899 OTHER SNF (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 THERAPY 06/22/2017 NOEL ZARAGOZA CREDIT ADMINISTRATION OFFICER Ot M54.9 DORSALGIA, UNSPECIFIED 06/22/2017 NOEL ZARAGOZA CREDIT ADMINISTRATION OFFICER Ot R07.9 CHEST PAIN, UNSPECIFIED 06/22/2017 NOEL ZARAGOZA CREDIT ADMINISTRATION OFFICER Ot R61 GENERALIZED HYPERHIDROSIS 06/22/2017 NOEL ZARAGOZA CREDIT ADMINISTRATION OFFICER Ot Z12.31 ENCNTR SCREEN MAMMOGRAM FOR MALIGNANT NE 06/22/2017 STAN LEAVITT, SNOW Frias Ot 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 06/22/2017 KYLE YANG Ot 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, 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 06/22/2017 CARTER BADILLO MD Ot E04.2 NONTOXIC MULTINODULAR GOITER 06/22/2017 CARTER BADILLO MD Ot I25.10 ATHSCL HEART DISEASE OF [place] CORONARY 06/22/2017 CARTER BADILLO MD Ot I51.7 CARDIOMEGALY 06/22/2017 CARTER BADILLO MD Ot 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, 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 06/22/2017 CARTER BADILLO MD Ot K44.9 DIAPHRAGMATIC HERNIA WITHOUT OBSTRUCTION 06/22/2017 BERTHA DHALIWAL MD Ot J44.9 CHRONIC OBSTRUCTIVE PULMONARY DISEASE, U 06/22/2017 BERTHA DHALIWAL MD, Ot K44.9 DIAPHRAGMATIC HERNIA WITHOUT OBSTRUCTION 06/22/2017 BERTHA DHALIWAL MD Ot Z51.81 ENCOUNTER FOR THERAPEUTIC DRUG LEVEL MON 06/22/2017 BERTHA DHALIWAL MD Ot Z79.899 OTHER CURING BIN OPERATOR (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 THERAPY 06/22/2017 MELY METCALF DO Ot E66.9 OBESITY, UNSPECIFIED 06/22/2017 MELY METCALF DO M Ot F03.90 UNSPECIFIED DEMENTIA WITHOUT BEHAVIORAL 06/22/2017 MELY METCALF DO Ot F41.9 ANXIETY DISORDER, UNSPECIFIED 06/22/2017 NOEL ZARAGOZA APRN Ot Z12.31 ENCNTR SCREEN MAMMOGRAM FOR MALIGNANT NE 06/22/2017 BERTHA DHALIWAL MD Ot I51.7 CARDIOMEGALY 06/22/2017 BERTHA DHALIWAL MD Ot K44.9 DIAPHRAGMATIC HERNIA WITHOUT OBSTRUCTION 06/22/2017 BERTHA DHALIWAL MD Ot Z79.899 OTHER CURING BIN OPERATOR (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 THERAPY 06/22/2017 CARTER BADILLO MD Ot E87.70 FLUID OVERLOAD, UNSPECIFIED 06/22/2017 CARTER BADILLO MD Ot J06.9 ACUTE UPPER RESPIRATORY INFECTION, UNSPE 06/22/2017 CARTER BADILLO MD Ot K21.9 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 06/22/2017 CARTER BADILLO MD Ot R09.02 HYPOXEMIA 06/23/2017 CARTER BADILLO MD Ot E03.9 HYPOTHYROIDISM, UNSPECIFIED 06/23/2017 CARTER BADILLO MD Ot E11.9 TYPE 2 DIABETES MELLITUS WITHOUT COMPLIC 06/23/2017 CARTER BADILLO MD Ot E78.00 PURE HYPERCHOLESTEROLEMIA, UNSPECIFIED 06/23/2017 CARTER BADILLO MD Ot E87.70 FLUID OVERLOAD, UNSPECIFIED 06/23/2017 CARTER BADILLO MD Ot F03.90 UNSPECIFIED DEMENTIA WITHOUT BEHAVIORAL 06/23/2017 CARTER BADILLO MD Ot F32.9 MAJOR DEPRESSIVE DISORDER, SINGLE EPISOD 06/23/2017 CARTER BADILLO MD Ot F41.9 ANXIETY DISORDER, UNSPECIFIED 06/23/2017 CARTER BADILLO MD Ot G43.909 MIGRAINE, UNSP, NOT INTRACTABLE, WITHOUT 06/23/2017 CARTER BADILLO MD Ot I11.0 HYPERTENSIVE HEART DISEASE WITH HEART FA 06/23/2017 CARTER BADILLO MD Ot I48.91 UNSPECIFIED ATRIAL FIBRILLATION 06/23/2017 CARTER BADILLO MD, Ot I50.9 HEART FAILURE, UNSPECIFIED 06/23/2017 CARTER BADILLO MD, Ot J06.9 ACUTE UPPER RESPIRATORY INFECTION, UNSPE 06/23/2017 CARTER BADILLO MD, Ot J30.2 OTHER SEASONAL ALLERGIC RHINITIS 06/23/2017 CARTER BADILLO MD, Ot K21.9 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 06/23/2017 CARTER BADILLO MD Ot K44.9 DIAPHRAGMATIC HERNIA WITHOUT OBSTRUCTION 06/23/2017 CARTER BADILLO MD, Ot M19.91 PRIMARY OSTEOARTHRITIS, UNSPECIFIED SITE 06/23/2017 CARTER BADILLO MD Ot R09.02 HYPOXEMIA 06/23/2017 CARTER BADILLO MD Ot Z66 DO NOT RESUSCITATE 06/23/2017 CARTER BADILLO MD Ot Z79.01 SNF (CURRENT) USE OF ANTICOAGULANT 06/23/2017 CARTER BADILLO MD Ot Z87.19 PERSONAL HISTORY OF OTHER DISEASES OF TH 06/23/2017 CARTER BADILLO MD Ot Z87.442 PERSONAL HISTORY OF URINARY CALCULI 06/23/2017 CARTER BADILLO MD Ot Z95.0 PRESENCE OF CARDIAC PACEMAKER 06/23/2017 CARTER BADILLO MD Ot Z99.81 DEPENDENCE ON SUPPLEMENTAL OXYGEN 06/24/2017 CARTER BADILLO MD Ot E03.9 HYPOTHYROIDISM, UNSPECIFIED 06/24/2017 CARTER BADILLO MD Ot E11.9 TYPE 2 DIABETES MELLITUS WITHOUT COMPLIC 06/24/2017 CARTER BADILLO MD Ot E78.00 PURE HYPERCHOLESTEROLEMIA, UNSPECIFIED 06/24/2017 CARTER BADILLO MD Ot E87.70 FLUID OVERLOAD, UNSPECIFIED 06/24/2017 CARTER BADILLO MD Ot F03.90 UNSPECIFIED DEMENTIA WITHOUT BEHAVIORAL 06/24/2017 CARTER BADILLO MD Ot F32.9 MAJOR DEPRESSIVE DISORDER, SINGLE EPISOD 06/24/2017 CARTER BADILLO MD Ot F41.9 ANXIETY DISORDER, UNSPECIFIED 06/24/2017 CARTER BADILLO MD Ot G43.909 MIGRAINE, UNSP, NOT INTRACTABLE, WITHOUT 06/24/2017 CARTER BADILLO MD Ot I11.0 HYPERTENSIVE HEART DISEASE WITH HEART FA 06/24/2017 CARTER BADILLO MD Ot I48.91 UNSPECIFIED ATRIAL FIBRILLATION 06/24/2017 CARTER BADILLO MD Ot I50.9 HEART FAILURE, UNSPECIFIED 06/24/2017 CARTER BADILLO MD Ot J06.9 ACUTE UPPER RESPIRATORY INFECTION, UNSPE 06/24/2017 CARTER BADILLO MD Ot J30.2 OTHER SEASONAL ALLERGIC RHINITIS 06/24/2017 CARTER BADILLO MD, Ot K21.9 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 06/24/2017 CARTER BADILLO MD, Ot K44.9 DIAPHRAGMATIC HERNIA WITHOUT OBSTRUCTION 06/24/2017 CARTER BADILLO MD, Ot M19.91 PRIMARY OSTEOARTHRITIS, UNSPECIFIED SITE 06/24/2017 CARTER BADILLO MD Ot R09.02 HYPOXEMIA 06/24/2017 CARTER BADILLO MD, Ot Z66 DO NOT RESUSCITATE 06/24/2017 CARTER BADILLO MD Ot Z79.01 CURING BIN OPERATOR (CURRENT) USE OF ANTICOAGULANT 06/24/2017 CARTER BADILLO MD Ot Z87.19 PERSONAL HISTORY OF OTHER DISEASES OF TH 06/24/2017 CARTER BADILLO MD Ot Z87.442 PERSONAL HISTORY OF URINARY CALCULI 06/24/2017 CARTER BADILLO MD Ot Z95.0 PRESENCE OF CARDIAC PACEMAKER 06/24/2017 CARTER BADILLO MD Ot Z99.81 DEPENDENCE ON SUPPLEMENTAL OXYGEN 06/25/2017 CARTER BADILLO MD Ot E03.9 HYPOTHYROIDISM, UNSPECIFIED 06/25/2017 CARTER BADILLO MD Ot E11.9 TYPE 2 DIABETES MELLITUS WITHOUT COMPLIC 06/25/2017 CARTER BADILLO MD Ot E78.00 PURE HYPERCHOLESTEROLEMIA, UNSPECIFIED 06/25/2017 CARTER BADILLO MD Ot E87.70 FLUID OVERLOAD, UNSPECIFIED 06/25/2017 CARTER BADILLO MD Ot F03.90 UNSPECIFIED DEMENTIA WITHOUT BEHAVIORAL 06/25/2017 CARTER BADILLO MD Ot F32.9 MAJOR DEPRESSIVE DISORDER, SINGLE EPISOD 06/25/2017 CARTER BADILLO MD Ot F41.9 ANXIETY DISORDER, UNSPECIFIED 06/25/2017 CARTER BADILLO MD Ot G43.909 MIGRAINE, UNSP, NOT INTRACTABLE, WITHOUT 06/25/2017 CARTER BADILLO MD Ot I11.0 HYPERTENSIVE HEART DISEASE WITH HEART FA 06/25/2017 CARTER BADILLO MD Ot I48.91 UNSPECIFIED ATRIAL FIBRILLATION 06/25/2017 CARTER BADILLO MD Ot I50.9 HEART FAILURE, UNSPECIFIED 06/25/2017 CARTER BADILLO MD Ot J06.9 ACUTE UPPER RESPIRATORY INFECTION, UNSPE 06/25/2017 CARTER BADILLO MD Ot J30.2 OTHER SEASONAL ALLERGIC RHINITIS 06/25/2017 CARTER BADILLO MD Ot K21.9 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 06/25/2017 CARTER BADILLO MD Ot K44.9 DIAPHRAGMATIC HERNIA WITHOUT OBSTRUCTION 06/25/2017 CARTER BADILLO MD Ot M19.91 PRIMARY OSTEOARTHRITIS, UNSPECIFIED SITE 06/25/2017 CARTER BADILLO MD Ot R09.02 HYPOXEMIA 06/25/2017 CARTER BADILLO MD Ot Z66 DO NOT RESUSCITATE 06/25/2017 CARTER BADILLO MD Ot Z79.01 CURING BIN OPERATOR (CURRENT) USE OF ANTICOAGULANT 06/25/2017 CARTER BADILLO MD Ot Z87.19 PERSONAL HISTORY OF OTHER DISEASES OF TH 06/25/2017 CARTER BADILLO MD Ot Z87.442 PERSONAL HISTORY OF URINARY CALCULI 06/25/2017 CARTER BADILLO MD Ot Z95.0 PRESENCE OF CARDIAC PACEMAKER 06/25/2017 CARTER BADILLO MD Ot Z99.81 DEPENDENCE ON SUPPLEMENTAL OXYGEN 06/25/2017 CARTER BADILLO MD Ot E03.9 HYPOTHYROIDISM, UNSPECIFIED 06/25/2017 CARTER BADILLO MD Ot E11.9 TYPE 2 DIABETES MELLITUS WITHOUT COMPLIC 06/25/2017 CARTER BADILLO MD Ot E78.00 PURE HYPERCHOLESTEROLEMIA, UNSPECIFIED 06/25/2017 CARTER BADILLO MD Ot E87.70 FLUID OVERLOAD, UNSPECIFIED 06/25/2017 CARTER BADILLO MD Ot F03.90 UNSPECIFIED DEMENTIA WITHOUT BEHAVIORAL 06/25/2017 ABY MD, CARTER A Ot F32.9 MAJOR DEPRESSIVE DISORDER, SINGLE EPISOD 06/25/2017 CARTER BADILLO MD Ot F41.9 ANXIETY DISORDER, UNSPECIFIED 06/25/2017 CARTER BADILLO MD Ot G43.909 MIGRAINE, UNSP, NOT INTRACTABLE, WITHOUT 06/25/2017 CARTER BADILLO MD Ot I11.0 HYPERTENSIVE HEART DISEASE WITH HEART FA 06/25/2017 CARTER BADILLO MD Ot I48.91 UNSPECIFIED ATRIAL FIBRILLATION 06/25/2017 CARTER BADILLO MD Ot I50.9 HEART FAILURE, UNSPECIFIED 06/25/2017 CARTER BADILLO MD Ot J06.9 ACUTE UPPER RESPIRATORY INFECTION, UNSPE 06/25/2017 CARTER BADILLO MD Ot J30.2 OTHER SEASONAL ALLERGIC RHINITIS 06/25/2017 CARTER BADILLO MD Ot K21.9 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 06/25/2017 CARTER BADILLO MD Ot K44.9 DIAPHRAGMATIC HERNIA WITHOUT OBSTRUCTION 06/25/2017 CARTER BADILLO MD Ot M19.91 PRIMARY OSTEOARTHRITIS, UNSPECIFIED SITE 06/25/2017 CARTER BADILLO MD Ot R09.02 HYPOXEMIA 06/25/2017 CARTER BADILLO MD Ot Z66 DO NOT RESUSCITATE 06/25/2017 CARTER BADILLO MD Ot Z79.01 CURING BIN OPERATOR (CURRENT) USE OF ANTICOAGULANT 06/25/2017 CARTER BADILLO MD Ot Z87.19 PERSONAL HISTORY OF OTHER DISEASES OF TH 06/25/2017 CARTER BADILLO MD Ot Z87.442 PERSONAL HISTORY OF URINARY CALCULI 06/25/2017 CARTER BADILLO MD Ot Z95.0 PRESENCE OF CARDIAC PACEMAKER 06/25/2017 CARTER BADILLO MD Ot Z99.81 DEPENDENCE ON SUPPLEMENTAL OXYGEN 06/26/2017 CARTER BADILLO MD Ot E03.9 HYPOTHYROIDISM, UNSPECIFIED 06/26/2017 CARTER BADILLO MD Ot E11.9 TYPE 2 DIABETES MELLITUS WITHOUT COMPLIC 06/26/2017 CARTER BADILLO MD Ot E78.00 PURE HYPERCHOLESTEROLEMIA, UNSPECIFIED 06/26/2017 CARTER BADILLO MD Ot E87.70 FLUID OVERLOAD, UNSPECIFIED 06/26/2017 CARTER BADILLO MD Ot F03.90 UNSPECIFIED DEMENTIA WITHOUT BEHAVIORAL 06/26/2017 CARTER BADILLO MD Ot F32.9 MAJOR DEPRESSIVE DISORDER, SINGLE EPISOD 06/26/2017 CARTER BADILLO MD Ot F41.9 ANXIETY DISORDER, UNSPECIFIED 06/26/2017 CARTER BADILLO MD Ot G43.909 MIGRAINE, UNSP, NOT INTRACTABLE, WITHOUT 06/26/2017 CARTER BADILLO MD Ot I11.0 HYPERTENSIVE HEART DISEASE WITH HEART FA 06/26/2017 CARTER BADILLO MD Ot I48.91 UNSPECIFIED ATRIAL FIBRILLATION 06/26/2017 CARTER BADILLO MD Ot I50.9 HEART FAILURE, UNSPECIFIED 06/26/2017 CARTER BADILLO MD Ot J06.9 ACUTE UPPER RESPIRATORY INFECTION, UNSPE 06/26/2017 CARTER BADILLO MD Ot J30.2 OTHER SEASONAL ALLERGIC RHINITIS 06/26/2017 CARTER BADILLO MD Ot K21.9 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 06/26/2017 CARTER BADILLO MD Ot K44.9 DIAPHRAGMATIC HERNIA WITHOUT OBSTRUCTION 06/26/2017 CARTER BADILLO MD Ot M19.91 PRIMARY OSTEOARTHRITIS, UNSPECIFIED SITE 06/26/2017 CARTER BADILLO MD Ot R09.02 HYPOXEMIA 06/26/2017 CARTER BADILLO MD Ot Z66 DO NOT RESUSCITATE 06/26/2017 CARTER BADILLO MD Ot Z79.01 CURING BIN OPERATOR (CURRENT) USE OF ANTICOAGULANT 06/26/2017 CARTER BADILLO MD Ot Z87.19 PERSONAL HISTORY OF OTHER DISEASES OF TH 06/26/2017 CARTER BADILLO MD, Ot Z87.442 PERSONAL HISTORY OF URINARY CALCULI 06/26/2017 CARTER BADILLO MD Ot Z95.0 PRESENCE OF CARDIAC PACEMAKER 06/26/2017 CARTER BADILLO MD Ot Z99.81 DEPENDENCE ON SUPPLEMENTAL OXYGEN 06/27/2017 CARTER BADILLO MD Ot E03.9 HYPOTHYROIDISM, UNSPECIFIED 06/27/2017 CARTER BADILLO MD Ot E11.9 TYPE 2 DIABETES MELLITUS WITHOUT COMPLIC 06/27/2017 CARTER BADILLO MD Ot E78.00 PURE HYPERCHOLESTEROLEMIA, UNSPECIFIED 06/27/2017 CARTER BADILLO MD Ot E87.70 FLUID OVERLOAD, UNSPECIFIED 06/27/2017 CARTER BADILLO MD Ot F03.90 UNSPECIFIED DEMENTIA WITHOUT BEHAVIORAL 06/27/2017 CARTER BADILLO MD Ot F32.9 MAJOR DEPRESSIVE DISORDER, SINGLE EPISOD 06/27/2017 CARTER ABDILLO MD Ot F41.9 ANXIETY DISORDER, UNSPECIFIED 06/27/2017 CARTER BADILLO MD Ot G43.909 MIGRAINE, UNSP, NOT INTRACTABLE, WITHOUT 06/27/2017 CARTER BADILLO MD Ot I11.0 HYPERTENSIVE HEART DISEASE WITH HEART FA 06/27/2017 CARTER BADILLO MD Ot I48.91 UNSPECIFIED ATRIAL FIBRILLATION 06/27/2017 CARTER BADILLO MD Ot I50.9 HEART FAILURE, UNSPECIFIED 06/27/2017 CARTER BADILLO MD, Ot J06.9 ACUTE UPPER RESPIRATORY INFECTION, UNSPE 06/27/2017 CARTER BADILLO MD, Ot J30.2 OTHER SEASONAL ALLERGIC RHINITIS 06/27/2017 CARTER BADILLO MD, Ot K21.9 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 06/27/2017 CARTER BADILLO MD, Ot K44.9 DIAPHRAGMATIC HERNIA WITHOUT OBSTRUCTION 06/27/2017 CARTER BADILLO MD Ot M19.91 PRIMARY OSTEOARTHRITIS, UNSPECIFIED SITE 06/27/2017 CARTER BADILLO MD Ot R09.02 HYPOXEMIA 06/27/2017 CARTER BADILLO MD Ot Z66 DO NOT RESUSCITATE 06/27/2017 CARTER BADILLO MD Ot Z79.01 CURING BIN OPERATOR (CURRENT) USE OF ANTICOAGULANT 06/27/2017 CARTER BADILLO MD Ot Z87.19 PERSONAL HISTORY OF OTHER DISEASES OF TH 06/27/2017 CARTER BADILLO MD Ot Z87.442 PERSONAL HISTORY OF URINARY CALCULI 06/27/2017 CARTER BADILLO MD Ot Z95.0 PRESENCE OF CARDIAC PACEMAKER 06/27/2017 CARTER BADILLO MD Ot Z99.81 DEPENDENCE ON SUPPLEMENTAL OXYGEN 06/27/2017 CARTER BADILLO MD Ot E03.9 HYPOTHYROIDISM, UNSPECIFIED 06/27/2017 CARTER BADILLO MD Ot E11.9 TYPE 2 DIABETES MELLITUS WITHOUT COMPLIC 06/27/2017 CARTER BADILLO MD Ot E78.00 PURE HYPERCHOLESTEROLEMIA, UNSPECIFIED 06/27/2017 CARTER BADILLO MD Ot E87.70 FLUID OVERLOAD, UNSPECIFIED 06/27/2017 CARTER BADILLO MD Ot F03.90 UNSPECIFIED DEMENTIA WITHOUT BEHAVIORAL 06/27/2017 CARTER BADILLO MD Ot F32.9 MAJOR DEPRESSIVE DISORDER, SINGLE EPISOD 06/27/2017 CARTER BADILLO MD Ot F41.9 ANXIETY DISORDER, UNSPECIFIED 06/27/2017 CARTER BADILLO MD Ot G43.909 MIGRAINE, UNSP, NOT INTRACTABLE, WITHOUT 06/27/2017 CARTER BADILLO MD Ot I11.0 HYPERTENSIVE HEART DISEASE WITH HEART FA 06/27/2017 CARTER BADILLO MD Ot I48.91 UNSPECIFIED ATRIAL FIBRILLATION 06/27/2017 CARTER BADILLO MD Ot I50.9 HEART FAILURE, UNSPECIFIED 06/27/2017 CARTER BADILLO MD Ot J06.9 ACUTE UPPER RESPIRATORY INFECTION, UNSPE 06/27/2017 CARTER BADILLO MD Ot J30.2 OTHER SEASONAL ALLERGIC RHINITIS 06/27/2017 CARTER BADILLO MD Ot K21.9 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 06/27/2017 CARTER BADILLO MD Ot K44.9 DIAPHRAGMATIC HERNIA WITHOUT OBSTRUCTION 06/27/2017 CARTER BADILLO MD Ot K52.1 TOXIC GASTROENTERITIS AND COLITIS 06/27/2017 CARTER BADILLO MD Ot K91.1 POSTGASTRIC SURGERY SYNDROMES 06/27/2017 CARTER BADILLO MD Ot M19.91 PRIMARY OSTEOARTHRITIS, UNSPECIFIED SITE 06/27/2017 CARTER BADILLO MD Ot R09.02 HYPOXEMIA 06/27/2017 CARTER BADILLO MD Ot R53.81 OTHER MALAISE 06/27/2017 CARTER BADILLO MD Ot T36.95XA ADVERSE EFFECT OF UNSP SYSTEMIC ANTIBIOT 06/27/2017 CARTER BADILLO MD Ot Z66 DO NOT RESUSCITATE 06/27/2017 CARTER BADILLO MD Ot Z79.01 SNF (CURRENT) USE OF ANTICOAGULANT 06/27/2017 CARTER BADILLO MD Ot Z87.19 PERSONAL HISTORY OF OTHER DISEASES OF TH 06/27/2017 CARTER BADILLO MD Ot Z87.442 PERSONAL HISTORY OF URINARY CALCULI 06/27/2017 ABY MD, CARTER A Ot Z95.0 PRESENCE OF CARDIAC PACEMAKER 06/27/2017 ABY NATION, CARTER A Ot Z99.81 DEPENDENCE ON SUPPLEMENTAL OXYGEN Procedures Code Description Performed By Performed On [...] <100.0 Bacterial blood culture - 06/22/17 02:40 QUANTITY OF GROWTH . [facility] Bacterial blood culture SEE COMMEN [facility] Influenza virus A and B antigen detection - 06/22/17 03:00 FLU RESULT NEGATIVE FOR INFLUENZA A AND B ANTIGENS BY IA [facility] Blood lactic acid measurement (moles/volume) - 06/22/17 03:05 Blood lactic acid measurement (moles/volume) 1.13 mmol/L 0.50-2.00 Bacterial blood culture - 06/22/17 03:05 Bacterial blood culture [facility] Capillary blood glucose measurement by glucometer (mass/volume) [...] plasma albumin measurement (mass/volume) 3.5 g/dL 3.2-4.5 Capillary blood glucose measurement by glucometer (mass/volume) - 06/23/17 11: 23 Capillary blood glucose measurement by glucometer (mass/volume) 110 mg/dL 70-110 Capillary blood glucose measurement by glucometer (mass/volume) - 06/23/17 16: 24 Capillary blood glucose measurement by glucometer (mass/volume) 226 mg/dL 70-110 Capillary blood glucose measurement by glucometer (mass/volume) - 06/23/17 20: 53 Capillary blood glucose measurement by glucometer (mass/volume) 186 mg/dL 70-110 Capillary blood glucose measurement by glucometer (mass/volume) - 06/24/17 03: 13 Capillary blood glucose measurement by glucometer (mass/volume) 167 mg/dL 70-110 Capillary blood glucose measurement by glucometer (mass/volume) - 06/24/17 06: 14 Capillary blood glucose measurement by glucometer (mass/volume) 171 mg/dL 70-110 Capillary blood glucose measurement by glucometer (mass/volume) - 06/24/17 11: 04 Capillary blood glucose measurement by glucometer (mass/volume) 161 mg/dL 70-110 Capillary blood glucose measurement by glucometer (mass/volume) - 06/24/17 15: 44 Capillary blood glucose measurement by glucometer (mass/volume) 212 mg/dL 70-110 Capillary blood glucose measurement by glucometer (mass/volume) - 06/24/17 20: 56 Capillary blood glucose measurement by glucometer (mass/volume) 189 mg/dL 70-110 Capillary blood glucose measurement by glucometer (mass/volume) - 06/25/17 05: 36 Capillary blood glucose measurement by glucometer (mass/volume) 182 mg/dL 70-110 Complete blood count (CBC) with automated white blood cell (WBC) differential - 06/25/17 05:50 Blood leukocytes automated count (number/volume) 8.3 10*3/uL 4.3-11.0 Blood erythrocytes automated count (number/volume) 4.04 10*6/uL 4.35-5.85 Venous blood hemoglobin measurement (mass/volume) 11.9 g/dL 11.5-16.0 Blood hematocrit (volume fraction) 36 % 35-52 Automated erythrocyte mean corpuscular volume 90 [foz_us] 80-99 Automated erythrocyte mean corpuscular hemoglobin (mass per erythrocyte) 30 pg 25-34 Automated erythrocyte mean corpuscular hemoglobin concentration measurement ( mass/volume) 33 g/dL 32-36 Automated erythrocyte distribution width ratio 14.5 % 10.0-14.5 Automated blood platelet count (count/volume) 155 10*3/uL 130-400 Automated blood platelet mean volume measurement 10.4 [foz_us] 7.4-10.4 Automated blood neutrophils/100 leukocytes 89 % 42-75 Automated blood lymphocytes/100 leukocytes 5 % 12-44 Blood monocytes/100 leukocytes 6 % 0-12 Automated blood eosinophils/100 leukocytes 1 % 0-10 Automated blood basophils/100 leukocytes 0 % 0-10 Blood neutrophils automated count (number/volume) 7.3 10*3 1.8-7.8 Blood lymphocytes automated count (number/volume) 0.5 10*3 1.0-4.0 Blood monocytes automated count (number/volume) 0.5 10*3 0.0-1.0 Automated eosinophil count 0.0 10*3/uL 0.0-0.3 Automated blood basophil count (count/volume) 0.0 10*3/uL 0.0-0.1 Comprehensive metabolic panel - 06/25/17 05:50 Serum or plasma sodium measurement (moles/volume) 141 mmol/L 135-145 Serum or plasma potassium measurement (moles/volume) 4.4 mmol/L 3.6-5.0 Serum or plasma chloride measurement (moles/volume) 110 mmol/L 98-107 Carbon dioxide 19 mmol/L 21-32 Serum or plasma anion gap determination (moles/volume) 12 mmol/L 5-14 Serum or plasma urea nitrogen measurement (mass/volume) 25 mg/dL 7-18 Serum or plasma creatinine measurement (mass/volume) 1.05 mg/dL 0.60-1.30 Serum or plasma urea nitrogen/creatinine mass ratio 24 NRG Serum or plasma creatinine measurement with calculation of estimated glomerular filtration rate 50 NRG Serum or plasma glucose measurement (mass/volume) 188 mg/dL 70-105 Serum or plasma calcium measurement (mass/volume) 8.7 mg/dL 8.5-10.1 Serum or plasma total bilirubin measurement (mass/volume) 0.5 mg/dL 0.1-1.0 Serum or plasma alkaline phosphatase measurement (enzymatic activity/volume) 35 U/L 40-136 Serum or plasma aspartate aminotransferase measurement (enzymatic activity/ volume) 22 U/L 5-34 Serum or plasma alanine aminotransferase measurement (enzymatic activity/volume ) 24 U/L 0-55 Serum or plasma protein measurement (mass/volume) 6.1 g/dL 6.4-8.2 Serum or plasma albumin measurement (mass/volume) 3.4 g/dL 3.2-4.5 Capillary blood glucose measurement by glucometer (mass/volume) - 06/25/17 12: 18 Capillary blood glucose measurement by glucometer (mass/volume) 169 mg/dL 70-110 Capillary blood glucose measurement by glucometer (mass/volume) - 06/25/17 16: 11 Capillary blood glucose measurement by glucometer (mass/volume) 186 mg/dL 70-110 Capillary blood glucose measurement by glucometer (mass/volume) - 06/25/17 20: 15 Capillary blood glucose measurement by glucometer (mass/volume) 202 mg/dL 70-110 Capillary blood glucose measurement by glucometer (mass/volume) - 06/26/17 05: 42 Capillary blood glucose measurement by glucometer (mass/volume) 164 mg/dL 70-110 Capillary blood glucose measurement by glucometer (mass/volume) - 06/26/17 10: 42 Capillary blood glucose measurement by glucometer (mass/volume) 162 mg/dL 70-110 Capillary blood glucose measurement by glucometer (mass/volume) - 06/26/17 15: 29 Capillary blood glucose measurement by glucometer (mass/volume) 151 mg/dL 70-110 Capillary blood glucose measurement by glucometer (mass/volume) - 06/26/17 20: 45 Capillary blood glucose measurement by glucometer (mass/volume) 213 mg/dL 70-110 Capillary blood glucose measurement by glucometer (mass/volume) - 06/27/17 05: 40 Capillary blood glucose measurement by glucometer (mass/volume) 191 mg/dL 70-110 Capillary blood glucose measurement by glucometer (mass/volume) - 06/27/17 11: 58 Capillary blood glucose measurement by glucometer (mass/volume) 151 mg/dL 70-110 Encounters ACCT No. Visit Date/Time Discharge Status Pt. Type Provider Facility Loc./Unit Complaint [id number] 06/22/2017 03:30:00 06/27/2017 14:50:00 DIS Inpatient ABY NATION, CARTER Saldivar [facility] 4TH PNA-CAP,RESPIRATORY DISTRESS,HYPOXIA [id number] 04/27/2017 14:16:00 04/27/2017 23:59:59 CLS Outpatient BERTHA DHALIWAL MD [facility] RAD Z51.81, Z79.899 [id number] 03/09/2017 12:29:00 03/09/2017 23:59:59 CLS Outpatient NOEL ZARAGOZA APRN [facility] RAD SCREENING [id number] 12/28/2016 14:42:00 12/28/2016 23:59:59 CLS Outpatient MELY METCALF DO [facility] RT DEMENTIA F03.90, ANXIETY F41.9,OBESITY E66.9 [id number] 11/07/2016 14:16:00 12/06/2016 16:00:00 DIS Outpatient ANJELICA HUBBARD MD [facility] WOUNDCARE [id number] 09/16/2016 09:52:00 09/16/2016 23:59:59 CLS Outpatient BERTHA DHALIWAL MD [facility] RAD Z51.81,Z79.899 [id number] 08/21/2016 11:22:00 08/21/2016 11:54:00 DIS Emergency TAD BOSS [facility] ER WOUND CHECK [id number] 08/20/2016 19:20:00 08/20/2016 22:45:00 DIS Emergency TAD BOSS [facility] ER BLEEDING AT SURGICAL SITE [id number] 07/05/2016 09:17:00 07/05/2016 23:59:59 CLS Outpatient CARTER BADILLO MD [facility] RAD ABNORMAL CHEST XRAY, FOLLOW UP THYROID NODULES [id number] 07/05/2016 09:11:00 07/05/2016 23:59:59 CLS Outpatient KYLE YANG [facility] RAD AORTIC ANEURYSM, THORACIC [id number] 06/30/2016 07:34:00 06/30/2016 23:59:59 CLS Outpatient SNOW PIERCE DPM [facility] RAD LIPOMA RIGHT ANKLE [id number] 06/30/2016 10:00:00 06/30/2016 10:00:00 CAN Preadmit NOEL ZARAGOZA APRN [facility] RAD ABNORMAL CHEST XR [id number] 03/07/2016 14:51:00 03/07/2016 23:59:59 CLS Outpatient NOEL ZARAGOZA APRN [facility] RAD SCREENING [id number] 02/25/2016 13:37:00 02/25/2016 23:59:59 CLS Outpatient NOEL ZARAGOZA APRN [facility] CARD CHEST PAIN,BACK PAIN ,DIAPHORESIS [id number] 01/06/2016 20:56:00 01/07/2016 06:35:00 DIS Outpatient CARTER BADILLO MD [facility] SLEEP OBSERVED APNEAS, SNORING,NAYELI,HTN,DAYTIME SLEEPINESS [id number] 11/08/2015 08:47:00 11/08/2015 09:55:00 DIS Emergency FRANCISCO PABLO MD [facility] ER SORE THROAT,BILAT EAR PAIN [id number] 10/02/2015 12:45:00 10/02/2015 23:59:59 CLS Outpatient BERTHA DHALIWAL MD [facility] RAD ENCOUNTER FOR MONITORING AMIODARONE THERAPY [id number] 07/15/2015 10:25:00 07/15/2015 14:10:00 DIS Outpatient MINO GARCIA MD [facility] SDC DYSPHAGIA [id number] 07/13/2015 14:55:00 07/13/2015 23:59:59 CLS Outpatient MINO GARCIA MD [facility] PREOP DYSPHAGIA [id number] 06/30/2015 09:23:00 06/30/2015 23:59:59 CLS Outpatient LUCIANO SALOMON [facility] RAD THYROID NODULES [id number] 06/10/2015 07:33:00 06/10/2015 23:59:59 CLS Outpatient CURT ARAGON MD [facility] CARD CAD,CAROTID ARTERY STENOSIS,HTN,HYPERLIPIDEMIA [id number] 06/09/2015 07:46:00 06/09/2015 23:59:59 CLS Outpatient KYLE YANG [facility] CARD CAD,CAROTID ARTERY STENOSIS,HTN,HYPERLIPIDEMIA [id number] 05/12/2015 12:34:00 05/12/2015 23:59:59 CLS Outpatient CARTER BADILLO MD [facility] RAD NECK AND RIGHT SHOULDER PAIN, [id number] 05/06/2015 16:53:00 05/06/2015 19:22:00 DIS Emergency AKLIA JAMES K [facility] ER HEADACHE,NAUSEA,WEAKNESS [id number] 02/18/2015 11:16:00 02/18/2015 23:59:59 CLS Outpatient LUCIANO SALOMONP [facility] RAD SCREENING [id number] 12/22/2014 11:08:00 12/22/2014 23:59:59 CLS Outpatient LUCIANO SALOMON [employer] INS[employer] HELPER [facility] RAD HYPOTHYROIDISM [id number] 11/19/2014 06:46:00 11/19/2014 23:59:59 CLS Outpatient MADHURI NATION, BERTHA Daniels [facility] RT PAROXYSMAL ATRIAL FIBRILLATION [id number] 10/22/2014 16:19:00 10/22/2014 20:14:00 DIS Emergency LEANA NATION, AIDA Ibarra [facility] ER SOA [id number] 05/21/2014 07:00:00 05/22/2014 10:20:00 DIS Outpatient MARGO NATION, CURT Montes De Oca [facility] CATH ABNORMAL STRESS, CP,HTN, HLP [id number] 05/08/2014 10:24:00 05/08/2014 23:59:59 CLS Outpatient KYLE YANG [facility] CARD CAD,CP,HTN [id number] 05/05/2014 07:44:00 05/05/2014 23:59:59 CLS Outpatient KYLE YANG [facility] CARD CAD,CP,HTN [id number] 02/13/2014 13:07:00 02/13/2014 23:59:59 CLS Outpatient ARUNA EGAN MD [facility] RAD SCREENING [id number] 11/25/2013 09:01:00 11/25/2013 10:21:00 DIS Emergency KALIA DO, JAMES K [facility] ER CHEST/UPPER BACK PAIN [id number] 09/16/2013 08:15:00 09/16/2013 23:59:59 CLS Outpatient PJ ALMANZAR MD, I [facility] RAD ABD PAIN [id number] 07/08/2013 16:33:00 07/08/2013 23:59:59 CLS Outpatient CURT ARAGON MD [facility] RAD CAD,CVA [id number] 12/18/2012 11:15:00 12/21/2012 22:00:00 DIS Inpatient ARUNA EGAN MD [facility] CSD CHEST PAIN [id number] 12/10/2012 12:35:00 12/10/2012 23:59:59 CLS Outpatient ARUNA EGAN MD [facility] RAD L BREAST PAIN [id number] 11/18/2014 11:44:00 Document Registration [id number] 11/18/2014 11:43:00 Document Registration [id number] 11/18/2014 11:43:00 Document Registration [id number] 11/18/2014 11:43:00 Document Registration [id number] 11/18/2014 11:43:00 Document Registration [id number] 09/24/2012 06:47:00 Document Registration [id number] 05/07/2012 07:04:00 Document Registration [id number] 05/04/2012 08:10:00 Document Registration [id number] 03/13/2012 12:47:00 Document Registration [id number] 12/15/2011 09:11:00 Document Registration [id number] 10/11/2011 12:54:00 Document Registration [id number] 09/14/2011 18:15:00 Document Registration [id number] 09/07/2011 12:10:00 Document Registration [id number] 12/03/2010 08:32:00 Document Registration [id number] 11/23/2010 13:43:00 Document Registration [id number] 06/10/2010 06:19:00 Document Registration [id number] 11/25/2009 07:50:00 Document Registration [id number] 03/30/2017 09:31:49 03/30/2017 23:59:59 CLS Outpatient [id number] 02/18/2015 11:16:38 ACT Document Registration [id number] 12/01/2016 09:47:00 12/01/2016 23:59:00 DIS Outpatient CURT ARAGON
[2017-09-17 10:01] LABS: ALANINE AMINOTRANSFERASE 16 U/L (0-55); ALBUMIN 3.9 GM/DL (3.2-4.5); ALKALINE PHOSPHATASE 60 U/L (40-136); BILIRUBIN,TOTAL 0.8 MG/DL (0.1-1.0); BUN/CREATININE RATIO 23; CALCIUM 9.3 MG/DL (8.5-10.1); CARBON DIOXIDE 20 MMOL/L (21-32); CHLORIDE 111 MMOL/L (98-107); CREATININE SERUM 1.02 MG/DL (0.60-1.30); GFR ESTIMATED 52; GLUCOSE 163 MG/DL (70-105); POTASSIUM 3.8 MMOL/L (3.6-5.0); SODIUM 141 MMOL/L (135-145); TOTAL PROTEIN 6.7 GM/DL (6.4-8.2)
--- NOTE | 2017-09-17 10:55 | Diagnostic Imaging Report ---
CLINICAL INDICATION: Patient cough, cold, congestion for couple weeks. EXAM: Chest x-ray PA and lateral views. COMPARISONS: Chest x-ray dated 06/25/2017. FINDINGS: Lungs/pleura: Lungs are clear. There is no pneumothorax. There is no pleural effusion. Mediastinum: Unremarkable. Small hiatal hernia is again seen. Pulmonary vasculature: Unremarkable. Heart: Heart size is within normal limits. Again seen cardiac pacemaker overlying left chest. Bones/extrathoracic soft tissue: There are hypertrophic spurs and scoliosis involving the visualized thoracolumbar spine. IMPRESSION: Stable chest x-ray exam with no interval radiographic evidence of acute cardiopulmonary process. Dictated by: Dictated on workstation # [id number]
--- NOTE | 2017-09-17 11:08 | ED General ---
General Chief Complaint: Cough/Cold/Flu Symptoms Stated Complaint: COLD, CONGESTION IN CHEST Nursing Triage Note: Patient advises she has been experiencing a cough and sputum production for several weeks that has become progressively worse. She advises fever and chills at night. Nursing Sepsis Screen: No Definite Risk Source of Information: Patient, Old Records Exam Limitations: No Limitations History of Present Illness Date Seen by Provider: Sep 17, 2017 Time Seen by Provider: 09:30 Initial Comments This 82 year old woman presents to the ER with her family with cough and chest discomfort x 1 month. She reports sputum production and subjective fever and chills. Chest discomfort is worse with cough and deep breathing. She reports being diagnosed and treated for pneumonia June 22. She reportedly was given a treatment of steroids by her PCP last . She also recently finished a round of Keflex for an infected right wrist injury. Allergies and Home Medications Allergies Coded Allergies: codeine (Verified Allergy, Unknown, 09/09/08) morphine (Verified Allergy, Unknown, 09/09/08) Uncoded Allergies: PENCILLIN (Allergy, Unknown, 09/17/17) Home Medications Albuterol Sulfate 2.5 Mg/3 Ml Vial.neb, 2.5 MG INH RTQ2H PRN for WHEEZING Prescribed by: CARTER BADILLO on 06/27/17902 Albuterol Sulfate 2.5 Mg/3 Ml Vial.neb, 2.5 MG IH Q4H PRN for SHORTNESS OF BREATH For uncontrolled cough, wheezing, or shortness of breath Prescribed by: AIDA LOJA on 09/17/17 1119 Alprazolam 0.25 Mg Tablet, 0.25 MG PO BID PRN for ANXIETY Prescribed by: CARTER BADILLO on 06/27/17902 Amiodarone HCl 200 Mg Tablet, 100 MG PO DAILY, (Reported) TAKES 1/2 (200MG) TABLET Amlodipine Besylate 5 Mg Tablet, 5 MG PO DAILY, (Reported) Benzonatate 200 Mg Capsule, 200 MG PO TID PRN for COUGH, (Reported) FILLED #15 CAPSULES 06-20-17 Buspirone HCl 15 Mg Tablet, 15 MG PO BID, (Reported) Cefdinir 300 Mg Capsule, 300 MG PO BID Prescribed by: CARTER BADILLO on 06/27/17902 Cholecalciferol (Vitamin D3) 5,000 Unit Capsule, 5,000 UNIT PO DAILY, (Reported) Clobetasol Propionate 15 Gm Oint...g., TOP BID PRN for SKIN, (Reported) Cyanocobalamin 1,000 Mcg/Ml Inj, 1,000 MCG INJ EVERY OTHER MONDAY, (Reported) Dabigatran Etexilate Mesylate 150 Mg Capsule, 150 MG PO BID, (Reported) Dexlansoprazole 60 Mg Cap.dr.bp, 60 MG PO DAILY, (Reported) Digoxin 125 Mcg Tablet, 125 MCG PO SuMoWeFr, (Reported) Donepezil HCl 10 Mg Tablet, 10 MG PO HS, (Reported) Fluticasone/Salmeterol 12 Gm Hfa.aer.ad, 1 PUFF IH BID Prescribed by: CARTER BADILLO on 06/27/17903 Furosemide 40 Mg Tablet, 40 MG PO DAILY, (Reported) Hydrocodone Bit/Acetaminophen 1 Tab Tab, 1-2 TAB PO Q6H PRN for PAIN-MODERATE Prescribed by: CARTER BADILLO on 06/27/17902 Ipratropium/Albuterol Sulfate 3 Ml Ampul.neb, 3 ML INH RTBID Prescribed by: CARTER BADILLO on 06/27/17902 Lactobacillus Combination No.4 1 Each Capsule, 1 CAP PO DAILY, (Reported) Levothyroxine Sodium 125 Mcg Tablet, 125 MCG PO DAILY, (Reported) LAST FILLED #90 01-23-17 Liothyronine Sodium 5 Mcg Tablet, 5 MCG PO BID, (Reported) Loperamide HCl 2 Mg Capsule, 4 MG PO PRN PRN for DIARRHEA Prescribed by: IRVIN STONE on 06/27/17 1407 Losartan Potassium 100 Mg Tablet, 100 MG PO 1230, (Reported) Meloxicam 15 Mg Tablet, 15 MG PO DAILY, (Reported) Metoprolol Tartrate 50 Mg Tablet, 25 MG PO BID, (Reported) TAKES 1/2 (50MG) TABLET [place]-3 Fatty Acids/Fish Oil 1 Each Capsule, 1,000 MG PO BID, (Reported) Ondansetron 4 Mg Tab.rapdis, 4 MG PO TID PRN for NAUSEA/VOMITING-1ST LINE, ( Reported) Pantoprazole Sodium 40 Mg Tablet.dr, 40 MG PO HS, (Reported) Potassium Chloride 20 Meq Tab.er.prt, 20 MEQ PO 1230,2130, (Reported) Sertraline HCl 50 Mg Tablet, 50 MG PO DAILY, (Reported) Topiramate 25 Mg Tablet, 25 MG PO BID PRN for HEADACHE, (Reported) LAST FILLED #60 02-22-17 Patient Home Medication List Home Medication List Reviewed: Yes Constitutional: see HPI EENTM: no symptoms reported Respiratory: see HPI Cardiovascular: see HPI Gastrointestinal: no symptoms reported Genitourinary: no symptoms reported : No Musculoskeletal: see HPI Skin: see HPI Psychiatric/Neurological: No Symptoms Reported Hematologic/Lymphatic: No Symptoms Reported Immunological/Allergic: no symptoms reported Past Iktlmrw-Cegzhr-Ljgbxa Hx Patient Social History Alcohol Use: Denies Use Recreational Drug Use: No Smoking Status: Never a Smoker 2nd Hand Smoke Exposure: No Recent Foreign Travel: No Contact w/Someone Who Travel: No Recent Infectious Disease Expo: No Recent Hopitalizations: No Physical Abuse: No Sexual Abuse: No Immunizations Up To Date Tetanus Booster (TDap): Unknown Date of Pneumonia Vaccine: Mar 22, 2017 Date of Influenza Vaccine: Mar 19, 2017 Seasonal Allergies Seasonal Allergies: Yes Surgeries History of Surgeries: Yes Surgeries: Abdominal, Gallbladder, Hysterectomy, Orthopedic, Pacemaker Respiratory History of Respiratory Disorde: Yes (Nocternal hypoxia) Respiratory Disorders: Pneumonia Currently Using CPAP: No Currently Using BIPAP: No Cardiovascular History of Cardiac Disorders: Yes (CHF, sinus node dysfunction s/p pacemaker) Cardiac Disorders: Atrial Fibrillation, High Cholesterol, Hypertension Neurological History of Neurological Disord: Yes Neurological Disorders: Dementia Reproductive System Hx Reproductive Disorders: No Sexually Transmitted Disease: No HIV/AIDS: No Genitourinary History of Genitourinary Disor: Yes Genitourinary Disorders: Kidney Stones Gastrointestinal History of Gastrointestinal Di: Yes (diverticulitis ) Gastrointestinal Disorders: Gastroesophageal Reflux, Hiatal Hernia Musculoskeletal History of Musculoskeletal Dis: Yes (osteoarthritis) Musculoskeletal Disorders: Arthritis Endocrine History of Endocrine Disorders: Yes (HYPOGLYCEMIA) Endocrine Disorders: Hypothyroidsim Cancer History of Cancer: No Psychosocial History of Psychiatric Problem: Yes Behavioral Health Disorders: Anxiety, Depression Suicide Risk Score: 0 Integumentary History of Skin or Integumenta: No Blood Transfusions History of Blood Disorders: No Family Medical History Significant Family History: Heart Disease Physical Exam Vital Signs Vital Signs - First Documented Capillary Refill : Less Than 3 Seconds General Appearance: No Apparent Distress, WD/WN HEENT: PERRL/EOMI, Normal ENT Inspection, Pharynx Normal Neck: Normal Inspection Respiratory: Lungs Clear, Normal Breath Sounds, No Accessory Muscle Use, No Respiratory Distress, Other (deep breathing induces cough) Cardiovascular: No Edema, No Murmur, Irregularly Irregular Gastrointestinal: Non Tender, Soft Extremity: Normal Capillary Refill, Normal Inspection, No Pedal Edema Neurologic/Psychiatric: Alert, Oriented x3, No Motor/Sensory Deficits, Normal Mood/Affect, 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 Norm as Tested Skin: Normal Color, Warm/Dry, Other (healing wound on right wrist) Progress/Results/Core Measures Suspected Sepsis Recent Fever Within 48 Hours: Yes Infection Criteria Present: Suspected New Infection New/Unexplained Altered Menta: No Sepsis Screen: No Definite Risk Sepsis Diagnosis: SIRS Temperature:97.9 Pulse: 71 Respiratory Rate: 18 Laboratory Tests 09/17/17 09:32: White Blood Count 4.9 Blood Pressure 131 /70 Mean: 90 Laboratory Tests 09/17/17 09:32: Creatinine 1.02, Platelet Count 171, Total Bilirubin 0.8 Results/Orders Lab Results My Orders Medications Given in ED Vital Signs/I&O Capillary Refill : Less Than 3 Seconds Blood Pressure Mean: 90 Progress Note : Progress Note Work up was negative for heart failure or pneumonia. Patient felt improved after a DuoNeb treatment. Albuterol was prescribed for her home nebulizer machine. ECG Initial ECG Impression Date: Sep 17, 2017 Initial ECG Impression Time: 09:39 Initial ECG Rate: 71 Comment Atrial ventricular dual paced rhythm. No acute changes from prior. Diagnostic Imaging Diagonstic Imaging: Xray Plain Films/CT/US/NM/MRI: chest Comments Chest x-ray viewed by me and report reviewed. See report below: NAME: MAT PEREYRA [facility] REC#: [id number] PT STATUS: REG ER : 1935 PHYSICIAN: AIDA DUEÑAS MD ADMIT DATE: 09/17/17/ER Draft Date of Exam:09/17/17 CHEST PA/LAT (2 VIEW) CLINICAL INDICATION: Patient cough, cold, congestion for couple weeks. EXAM: Chest x-ray PA and lateral views. COMPARISONS: Chest x-ray dated 06/25/2017. FINDINGS: Lungs/pleura: Lungs are clear. There is no pneumothorax. There is no pleural effusion. Mediastinum: Unremarkable. Small hiatal hernia is again seen. Pulmonary vasculature: Unremarkable. Heart: Heart size is within normal limits. Again seen cardiac pacemaker overlying left chest. Bones/extrathoracic soft tissue: There are hypertrophic spurs and scoliosis involving the visualized thoracolumbar spine. IMPRESSION: Stable chest x-ray exam with no interval radiographic evidence of acute cardiopulmonary process. Dictated on workstation # [id number] Dict: 09/17/17 1040 Trans: 09/17/17 1055 [id number] Interpreted by: JAMISON REYNOSO MD Departure Impression Impression: Primary Impression: Bronchitis Disposition: HOME, SELF-CARE Condition: Improved Departure-Patient Inst. Decision time for Depature: 11:05 Referrals: CARTER BADILLO MD (PCP/Family) Primary Care Physician Patient Instructions: Acute Bronchitis, Adult (DC) Add. Discharge Instructions: Use your nebulizer treatments as prescribed. Follow-up with your primary care provider next week. Return to the ER if symptoms worsen. You may be developing some COPD or chronic bronchitis. Discuss further treatment with your primary care provider. You may take abty-uan-zzikiib products that can obtain dextromethorphan (DM) for your cough. Talk to your doctor about Cozaar which may be contributing to your cough. All discharge instructions reviewed with patient and/or family. Voiced understanding. Scripts Albuterol Sulfate (Albuterol Sulfate) 2.5 Mg/3 Ml Vial.neb 2.5 MG IH Q4H Y for SHORTNESS OF BREATH, #30 EA For uncontrolled cough, wheezing, or shortness of breath Prov: AIDA DUEÑAS MD 09/17/17 Copy Copies To 1: CARTER BADILLO MD, JOSHUA T MD Sep 17, 2017 11:08
[2017-09-17] MEDS ORDERED: ALBU2.5V4 IH (11:19)
[2017-09-17 11:39] VITALS: BP 134/65
== END 2017-09-17 11:39 | disposition home or self-care (01) ==
LOC: EDUNIT# 09:12 → ER 09:14
DX: J40 Bronchitis, not specified as acute or chronic (principal); I48.91 Unspecified atrial fibrillation; E78.00 Pure hypercholesterolemia, unspecified; I11.0 Hypertensive heart disease with heart failure; I50.9 Heart failure, unspecified; E03.9 Hypothyroidism, unspecified; F03.90 Unspecified dementia, unspecified severity, without behavioral disturbance, psychotic disturbance, mood disturbance, and anxiety; K21.9 Gastro-esophageal reflux disease without esophagitis; F41.9 Anxiety disorder, unspecified; F32.9 Major depressive disorder, single episode, unspecified; Z87.01 Personal history of pneumonia (recurrent); Z87.442 Personal history of urinary calculi; Z90.710 Acquired absence of both cervix and uterus; Z95.0 Presence of cardiac pacemaker; Z88.0 Allergy status to penicillin; Z88.6 Allergy status to analgesic agent; Z82.49 Family history of ischemic heart disease and other diseases of the circulatory system
CPT/HCPCS: 36415; 71046; 80053; 83880; 84484; 85025; 86141; 93005; 94640

== ENCOUNTER 2017-12-06 17:02 | Emergency (ER) | payer MEDICARE, OTHER, MEDICAID ==
[~2017-12-06] VITALS: Ht 167.6 cm; Wt 78.5 kg
[~2017-12-06 17:02] MED LIST changes: +ALBU2.5V4 IH
[2017-12-06] MEDS ORDERED: RT-ALBUTEROL/IPRATROPIUM 3 ML (DUONEB) VIAL INH ONE (17:30)
--- NOTE | 2017-12-06 17:34 | ED General ---
General Stated Complaint: COUGH;MUSCLE PAIN;WEAKNESS Source of Information: Patient, Family Exam Limitations: No Limitations History of Present Illness Date Seen by Provider: Dec 06, 2017 Time Seen by Provider: 17:30 Initial Comments brought to ER by her daughter with reports of generalized weakness, weakness in the arms and legs, discomfort in her chest and back all day today, a chronic cough unchanged in nature, chronic wheezing unchanged in nature. She reports chills earlier today.she is very difficult to obtain an history of present illness as she answers many questions with "I don't know". she did see Dr. VEGA on Monday of this week (today being Monday) for these symptoms and was given a prescription for doxycycline which she started yesterday. Timing/Duration: 1-2 Days Severity: Moderate Associated Systoms: Cough Allergies and Home Medications Allergies Coded Allergies: codeine (Verified Allergy, Unknown, 09/09/08) morphine (Verified Allergy, Unknown, 09/09/08) Uncoded Allergies: PENCILLIN (Allergy, Unknown, 09/17/17) Home Medications Albuterol Sulfate 2.5 Mg/3 Ml Vial.neb, 2.5 MG INH RTQ2H PRN for WHEEZING Prescribed by: CARTER VEGA on 06/27/17 09 Albuterol Sulfate 2.5 Mg/3 Ml Vial.neb, 2.5 MG IH Q4H PRN for SHORTNESS OF BREATH For uncontrolled cough, wheezing, or shortness of breath Prescribed by: AIDA LOJA on 09/17/17 1119 Alprazolam 0.25 Mg Tablet, 0.25 MG PO BID PRN for ANXIETY Prescribed by: CARTER VEGA on 06/27/17 0903 Amiodarone HCl 200 Mg Tablet, 100 MG PO DAILY, (Reported) TAKES 1/2 (200MG) TABLET Amlodipine Besylate 5 Mg Tablet, 5 MG PO DAILY, (Reported) Benzonatate 200 Mg Capsule, 200 MG PO TID PRN for COUGH, (Reported) FILLED #15 CAPSULES 06-20-17 Buspirone HCl 15 Mg Tablet, 15 MG PO BID, (Reported) Cholecalciferol (Vitamin D3) 5,000 Unit Capsule, 5,000 UNIT PO DAILY, (Reported) Clobetasol Propionate 15 Gm Oint...g., TOP BID PRN for SKIN, (Reported) Cyanocobalamin 1,000 Mcg/Ml Inj, 1,000 MCG INJ EVERY OTHER MONDAY, (Reported) Dabigatran Etexilate Mesylate 150 Mg Capsule, 150 MG PO BID, (Reported) Dexlansoprazole 60 Mg Cap.drFelixbp, 60 MG PO DAILY, (Reported) Digoxin 125 Mcg Tablet, 125 MCG PO SuMoWeFr, (Reported) Donepezil HCl 10 Mg Tablet, 10 MG PO HS, (Reported) Fluticasone/Salmeterol 12 Gm Hfa.aer.ad, 1 PUFF IH BID Prescribed by: CARTER VEGA on 06/27/17903 Furosemide 40 Mg Tablet, 40 MG PO DAILY, (Reported) Hydrocodone Bit/Acetaminophen 1 Tab Tab, 1-2 TAB PO Q6H PRN for PAIN-MODERATE Prescribed by: CARTER VEGA on 06/27/17902 Ipratropium/Albuterol Sulfate 3 Ml Ampul.neb, 3 ML INH RTBID Prescribed by: CARTER VEGA on 06/27/17902 Lactobacillus Combination No.4 1 Each Capsule, 1 CAP PO DAILY, (Reported) Levothyroxine Sodium 125 Mcg Tablet, 125 MCG PO DAILY, (Reported) LAST FILLED #90 817 Liothyronine Sodium 5 Mcg Tablet, 5 MCG PO BID, (Reported) Loperamide HCl 2 Mg Capsule, 4 MG PO PRN PRN for DIARRHEA Prescribed by: IRVIN TSONE on 06/27/17 1407 Losartan Potassium 100 Mg Tablet, 100 MG PO 1230, (Reported) Meloxicam 15 Mg Tablet, 15 MG PO DAILY, (Reported) Metoprolol Tartrate 50 Mg Tablet, 25 MG PO BID, (Reported) TAKES 1/2 (50MG) TABLET [place]-3 Fatty Acids/Fish Oil 1 Each Capsule, 1,000 MG PO BID, (Reported) Ondansetron 4 Mg Tab.rapdis, 4 MG PO TID PRN for NAUSEA/VOMITING-1ST LINE, ( Reported) Pantoprazole Sodium 40 Mg Tablet.dr, 40 MG PO HS, (Reported) Potassium Chloride 20 Meq Tab.er.prt, 20 MEQ PO 1230,2130, (Reported) Sertraline HCl 50 Mg Tablet, 50 MG PO DAILY, (Reported) Topiramate 25 Mg Tablet, 25 MG PO BID PRN for HEADACHE, (Reported) LAST FILLED #60 02-22-17 Patient Home Medication List Home Medication List Reviewed: Yes Review of Systems Constitutional: see HPI, chills, weakness EENTM: see HPI Respiratory: see HPI, cough, short of breath Cardiovascular: no symptoms reported Genitourinary: no symptoms reported Musculoskeletal: no symptoms reported Skin: no symptoms reported Psychiatric/Neurological: No Symptoms Reported Past Repgfyc-Xrxibv-Mwmjlg Hx Patient Social History 2nd Hand Smoke Exposure: No Recent Foreign Travel: No Contact w/Someone Who Travel: No Recent Hopitalizations: No Immunizations Up To Date Tetanus Booster (TDap): Unknown Date of Pneumonia Vaccine: Mar 22, 2017 Date of Influenza Vaccine: Mar 19, 2017 Seasonal Allergies Seasonal Allergies: Yes Past Medical History Surgeries: Yes Abdominal, Gallbladder, Hysterectomy, Orthopedic, Pacemaker Respiratory: Yes (Nocternal hypoxia) Pneumonia, COPD Currently Using CPAP: No Currently Using BIPAP: No Cardiac: Yes (CHF, sinus node dysfunction s/p pacemaker) Atrial Fibrillation, High Cholesterol, Hypertension Neurological: Yes Dementia Reproductive Disorders: No Sexually Transmitted Disease: No HIV/AIDS: No Genitourinary: Yes Kidney Stones Gastrointestinal: Yes (diverticulitis ) Gastroesophageal Reflux, Hiatal Hernia Musculoskeletal: Yes (osteoarthritis) Arthritis Endocrine: Yes (HYPOGLYCEMIA) Hypothyroidsim Cancer: No Psychosocial: Yes Anxiety, Depression Integumentary: No Blood Disorders: No Family Medical History Heart Disease Physical Exam Vital Signs Vital Signs - First Documented 12/06/17 12/06/17 17:10 18:04 Temp 98.4 Pulse 83 Resp 22 B/P (MAP) 145/84 (104) Pulse Ox 94 O2 Delivery Room Air Capillary Refill : General Appearance: No Apparent Distress, WD/WN, Other (mbulatory into ER without assistive device) Eyes: Bilateral Eye Normal Inspection, Bilateral Eye PERRL, Bilateral Eye EOMI HEENT: PERRL/EOMI, TMs Normal, Normal ENT Inspection Neck: Full Range of Motion, Normal Inspection Respiratory: No Accessory Muscle Use, No Respiratory Distress, Wheezing ( mostly on the right) Cardiovascular: Regular Rate, Rhythm, Normal Peripheral Pulses Gastrointestinal: Non Tender, Soft Extremity: Normal Capillary Refill, Normal Inspection Neurologic/Psychiatric: Alert, Oriented x3 Skin: Normal Color, Warm/Dry Progress/Results/Core Measures Suspected Sepsis SIRS Temperature: Pulse: Respiratory Rate: Laboratory Tests 12/06/17 17:38: White Blood Count 5.8 Blood Pressure / Mean: Laboratory Tests 12/06/17 17:38: Creatinine 1.32H, INR Comment 1.4, Platelet Count 214, Total Bilirubin 0.9 Results/Orders Lab Results Laboratory Tests Test 12/06/17 17:30 12/06/17 17:38 Range/Units Urine Color YELLOW Urine Clarity CLEAR Urine pH 6 5-9 Urine Specific [place] 1.010 L 1.016-1.022 Urine Protein NEGATIVE NEGATIVE Urine Glucose (UA) NEGATIVE NEGATIVE Urine Ketones NEGATIVE NEGATIVE Urine Nitrite NEGATIVE NEGATIVE Urine Bilirubin NEGATIVE NEGATIVE Urine Urobilinogen NORMAL NORMAL MG/DL Urine Leukocyte Esterase NEGATIVE NEGATIVE Urine RBC (Auto) NEGATIVE NEGATIVE Urine RBC NONE /HPF Urine WBC NONE /HPF Urine Squamous Epithelial Cells 2-5 /HPF Urine Crystals NONE /LPF Urine Bacteria NONE /HPF Urine Casts NONE /LPF Urine Mucus NEGATIVE /LPF Urine Culture Indicated NO White Blood Count 5.8 4.3-11.0 10^3/uL Red Blood Count 4.91 4.35-5.85 10^6/uL Hemoglobin 14.2 11.5-16.0 G/DL Hematocrit 42 35-52 % Mean Corpuscular Volume 86 80-99 FL Mean Corpuscular Hemoglobin 29 25-34 PG Mean Corpuscular Hemoglobin Concent 34 32-36 G/DL Red Cell Distribution Width 14.8 H 10.0-14.5 % Platelet Count 214 130-400 10^3/uL Mean Platelet Volume 9.9 7.4-10.4 FL Neutrophils (%) (Auto) 59 42-75 % Lymphocytes (%) (Auto) 31 12-44 % Monocytes (%) (Auto) 8 0-12 % Eosinophils (%) (Auto) 2 0-10 % Basophils (%) (Auto) 1 0-10 % Neutrophils # (Auto) 3.4 1.8-7.8 X 10^3 Lymphocytes # (Auto) 1.8 1.0-4.0 X 10^3 Monocytes # (Auto) 0.5 0.0-1.0 X 10^3 Eosinophils # (Auto) 0.1 0.0-0.3 10^3/uL Basophils # (Auto) 0.0 0.0-0.1 10^3/uL Prothrombin Time 16.9 H 12.2-14.7 SEC INR Comment 1.4 0.8-1.4 Sodium Level 141 135-145 MMOL/L Potassium Level 4.2 3.6-5.0 MMOL/L Chloride Level 109 H 98-107 MMOL/L Carbon Dioxide Level 19 L 21-32 MMOL/L Anion Gap 13 5-14 MMOL/L Blood Urea Nitrogen 23 H 7-18 MG/DL Creatinine 1.32 H 0.60-1.30 MG/DL Estimat Glomerular Filtration Rate 38 BUN/Creatinine Ratio 17 Glucose Level 119 H 70-105 MG/DL Calcium Level 9.5 8.5-10.1 MG/DL Total Bilirubin 0.9 0.1-1.0 MG/DL Aspartate Amino Transf (AST/SGOT) 26 5-34 U/L Alanine Aminotransferase (ALT/SGPT) 27 0-55 U/L Alkaline Phosphatase 68 40-136 U/L Troponin I < 0.30 <0.30 NG/ML Total Protein 7.5 6.4-8.2 GM/DL Albumin 4.3 3.2-4.5 GM/DL My Orders Orders - CL ROSALES APRN Cbc With Automated Diff (12/06/17 17:28) Comprehensive Metabolic Panel (12/06/17 17:28) Protime With Inr (12/06/17 17:28) Troponin I (12/06/17 17:28) Ekg Tracing (12/06/17 17:28) Ua Culture If Indicated (12/06/17 17:28) Chest Pa/Lat (2 View) (12/06/17 17:28) Iv [place]-Insert (Order) (12/06/17 17:28) Albuterol/Ipra Inhalation Soln (Duoneb I (12/06/17 17:30) Svn Small Volume Nebulizer (12/06/17 17:28) Ns Iv 1000 Ml (Sodium Chloride 0.9%) (12/06/17 18:15) Medications Given in ED Current Medications Medications Dose Ordered Sig/Thao Route Start Time Stop Time Status Last Admin Dose Admin Albuterol/ Ipratropium 3 ml ONCE ONCE INH 12/06/17 17:30 18 17:31 DC 12/06/17 18:04 3 ML Vital Signs/I&O 12/06/17 12/06/17 17:10 18:04 Temp 98.4 Pulse 83 Resp 22 B/P (MAP) 145/84 (104) Pulse Ox 94 O2 Delivery Room Air Room Air Capillary Refill : Departure Communication (Admissions) 832-I discussed the case with Dr. Vega who is familiar with the patient. no indication for admission at this time, we will start her on a prednisone first and discharge home. Impression Primary Impression: COPD exacerbation Disposition: HOME, SELF-CARE Condition: Stable Departure-Patient Inst. Decision time for Depature: 18:33 Referrals: CARTER VEGA MD (PCP/Family) Primary Care Physician Patient Instructions: Exacerbation of COPD Add. Discharge Instructions: 1. Take steroids as directed starting tomorrow 2. Return to ER for any concerns Scripts Prednisone (Prednisone) 20 Mg Tab 40 MG PO DAILY, #6 TAB Prov: CL ROSALES APRN 12/06/17 CL ROSALES APRN Dec 06, 2017 17:34
[2017-12-06 17:47] LABS: BASOPHILS % (AUTO) 1 % (0-10); EOSINOPHILS # (AUTO) 0.1 10^3/uL (0.0-0.3); EOSINOPHILS % (AUTO) 2 % (0-10); HEMATOCRIT 42 % (35-52); HEMOGLOBIN 14.2 G/DL (11.5-16.0); LYMPHOCYTES # (AUTO) 1.8 X 10^3 (1.0-4.0); LYMPHOCYTES % (AUTO) 31 % (12-44); MEAN CORPUSCULAR HEMOGLOBIN 29 PG (25-34); MEAN CORPUSCULAR HGB CONC 34 G/DL (32-36); MEAN CORPUSCULAR VOLUME 86 FL (80-99); MEAN PLATELET VOLUME 9.9 FL (7.4-10.4); MONOCYTES # (AUTO) 0.5 X 10^3 (0.0-1.0); MONOCYTES % (AUTO) 8 % (0-12); NEUTROPHILS # (AUTO) 3.4 X 10^3 (1.8-7.8); NEUTROPHILS % (AUTO) 59 % (42-75); PLATELET COUNT 214 10^3/uL (130-400); RED BLOOD COUNT 4.91 10^6/uL (4.35-5.85); RED CELL DISTRIBUTION WIDTH 14.8 % (10.0-14.5); WHITE BLOOD COUNT 5.8 10^3/uL (4.3-11.0)
[2017-12-06 17:58] LABS: INR 1.4 (0.8-1.4); PROTHROMBIN TIME PATIENT 16.9 SEC (12.2-14.7)
[2017-12-06 18:05] LABS: ALANINE AMINOTRANSFERASE 27 U/L (0-55); ALBUMIN 4.3 GM/DL (3.2-4.5); ALKALINE PHOSPHATASE 68 U/L (40-136); BILIRUBIN,TOTAL 0.9 MG/DL (0.1-1.0); BUN/CREATININE RATIO 17; CALCIUM 9.5 MG/DL (8.5-10.1); CARBON DIOXIDE 19 MMOL/L (21-32); CHLORIDE 109 MMOL/L (98-107); CREATININE SERUM 1.32 MG/DL (0.60-1.30); GFR ESTIMATED 38; GLUCOSE 119 MG/DL (70-105); POTASSIUM 4.2 MMOL/L (3.6-5.0); SODIUM 141 MMOL/L (135-145); TOTAL PROTEIN 7.5 GM/DL (6.4-8.2)
[2017-12-06 18:05] LABS: BILIRUBIN,URINE NEGATIVE (NEGATIVE); CLARITY,URINE CLEAR; COLOR,URINE YELLOW; GLUCOSE, URINE (UA) NEGATIVE (NEGATIVE); KETONES,URINE NEGATIVE (NEGATIVE); LEUKOCYTE ESTERASE ,URINE NEGATIVE (NEGATIVE); NITRITE,URINE NEGATIVE (NEGATIVE); PH,URINE 6 (5-9); PROTEIN,URINE NEGATIVE (NEGATIVE); UROBILINOGEN,URINE NORMAL (NORMAL)
[2017-12-06] MEDS ORDERED: NS IV 1000 ML 1,000 ML IV SCH (18:15)
--- NOTE | 2017-12-06 18:29 | Diagnostic Imaging Report ---
INDICATION: Productive cough. COMPARISON: Comparison is made to study of 10/27/2017. FINDINGS: Heart size and pulmonary vascularity remain within normal limits. There is no pneumothorax or consolidation. There is prominent hiatal hernia. No pneumothorax is identified. There is no significant pleural fluid. IMPRESSION: Moderate hiatal hernia. Otherwise, no acute abnormality or adverse change is detected. Dictated by: Dictated on workstation # [id number]
[2017-12-06] MEDS ORDERED: PRD20T PO (18:34)
--- OUTSIDE RECORDS SUMMARY | 2017-12-06 18:41 | XMS REPORT | Encounter Summary ---
Author Author [facility] Organization [facility] Address Unknown Phone Unavailable Care Team Providers Care Cyber Systems Administrator Name Role Phone Dorian Muse MD Unavailable Ernesto Sosa MD [address] Melvin Monterroso MD Unavailable Unavailable Dana Birmingham RN Unavailable Unavailable Severiano Daniel DO Unavailable Yarely Vega MD PCP Reason for Visit * Reason Comments Records Request Via [phone] Encounter Details Date Type Department Care Team Description 11/28/2017 Documentation [facility] Shalini Blake Records Request (Via [address] [phone]) [place] [address] Social History Tobacco Use Types Packs/Day Years Used Date Never Smoker Smokeless Tobacco: Never Used Alcohol Use Drinks/Week oz/Week Comments No Sex Assigned at Date Recorded Not on file as of this encounter Progress Notes * Shalini Blake - 11/28/2017 10:30 AM CDT Request for the following medical records for purpose of continuity of care: Faiza Nation 1935 has an appointment with Dr. Trejo. Please send: Chest X-ray Please Fax to: [phone] Attention: Shalini Blake MA [facility] [address] [place] [facility] [place] [address] in this encounter Plan of Treatment Not on fileas of this encounter Visit Diagnoses Not on filein this encounter
--- OUTSIDE RECORDS SUMMARY | 2017-12-06 18:41 | XMS REPORT | Encounter Summary ---
Author Author [facility] Organization [facility] Address Unknown Phone Unavailable Care Team Providers Care Lap Maker Name Role Phone Dorian Muse MD Unavailable Ernesto Sosa MD [address] Melvin Monterroso MD Unavailable Unavailable Dana Birmingham RN Unavailable Unavailable Severiano Daniel DO Unavailable Yarely Vega MD PCP Encounter Details Date Type Department Care Team Description 09/19/2017 Telephone [facility] Mena Dozier RN [address] [facility] [address] [place] [address] Social History Tobacco Use Types Packs/Day Years Used Date Never Smoker Smokeless Tobacco: Never Used Alcohol Use Drinks/Week oz/Week Comments No Sex Assigned at Date Recorded Not on file as of this encounter Miscellaneous Notes * Telephone Encounter - Mena Dozier RN - 09/19/2017 8:39 AM CDT Formatting of this note may be different from the original. Annie Marie LPN P [facility] Nurse Ep VM from daughter Dipika # [phone] returning our call. She did not have her phone on her but does now Called and spoke with Dipika, confirmed remote transmission will be on 11/17/17. Dipika has no further concerns or questions. * Telephone Encounter - Mena Dozier RN - 09/19/2017 8:13 AM CDT Left VM to CB. * Telephone Encounter - Mena Dozier RN - 09/19/2017 8:13 AM CDT ----- Message from Annie Marie LPN sent at 09/18/2017 4:38 PM CDT ----- Regarding: MPE- 2 letters VM from daughter Dipika on triage line. Said that she got 2 letters from our office and does not know what to do. Call # [phone]. in this encounter Plan of Treatment Not on fileas of this encounter Visit Diagnoses Not on filein this encounter
--- OUTSIDE RECORDS SUMMARY | 2017-12-06 18:41 | XMS REPORT | Encounter Summary ---
Author Author [facility] Organization [facility] Address Unknown Phone Unavailable Care Team Providers Care Surgical Corsetier Name Role Phone Dorian Muse MD Unavailable Ernesto Sosa MD [address]terroso MD Unavailable Unavailable Dana Birmingham RN Unavailable Unavailable Severiano Daniel DO Unavailable Yarely Vega MD PCP Encounter Details Date Type Department Care Team Description 11/27/2017 Orders Only [facility] Leann Nguyen, STEVEN long term care social worker current use of [address] [place] [address] Social History Tobacco Use Types Packs/Day Years Used Date Never Smoker Smokeless Tobacco: Never Used Alcohol Use Drinks/Week oz/Week Comments No Sex Assigned at Date Recorded Not on file as of this encounter Progress Notes * Leann Nguyen RN - 11/27/2017 4:01 PM CDT Amiodarone maintenance labs Labs per Yarely Vega MD in this encounter Plan of Treatment Not on fileas of this encounter Results * LIPID PROFILE (11/23/2017) Component Value Ref Range Cholesterol 179 Triglycerides 134 HDL 51 LDL 101 VLDL Non HDL Cholesterol Cholesterol/HDL Ratio 3.5 Specimen Performing Laboratory Blood OTHER OUTSIDE LAB * HEMOGLOBIN A1C (11/23/2017) Component Value Ref Range Hemoglobin A1C 6.4 Specimen Performing Laboratory Blood OTHER OUTSIDE LAB * COMPREHENSIVE METABOLIC PANEL (11/23/2017) Component Value Ref Range Sodium 142 Potassium 4.9 Chloride 112 (H) CO2 18 Blood Urea Nitrogen 24 Creatinine 1.0 Glucose 123 Calcium 9.4 Total Protein 6.2 Total Bilirubin 0.7 Albumin 3.8 Alk Phosphatase 56 AST (SGOT) 17 ALT (SGPT) 16 eGFR Non >59 eGFR Anion Gap Specimen Performing Laboratory Blood OTHER OUTSIDE LAB * THYROID STIMULATING HORMONE-TSH (11/23/2017) Component Value Ref Range TSH 1.0 Specimen Performing Laboratory Blood OTHER OUTSIDE LAB * DIGOXIN LEVEL (11/23/2017) Component Value Ref Range Digoxin 0.7 (L) Specimen Performing Laboratory Blood OTHER OUTSIDE LAB * FREE T4 (FREE THYROXINE) ONLY (11/23/2017) Component Value Ref Range T4-Free 1.04 Specimen Performing Laboratory Blood OTHER OUTSIDE LAB in this encounter Visit Diagnoses Diagnosis long term care social worker current use of amiodarone
--- OUTSIDE RECORDS SUMMARY | 2017-12-06 18:41 | XMS REPORT | Clinical Summary ---
Author Author [facility] Organization [facility] Address Unknown Phone Unavailable Care Team Providers Care Personal Financial Planner Name Role Phone Dorian Muse MD Unavailable Ernesto Sosa MD [address]terroso MD Unavailable Unavailable Dana Birmingham RN Unavailable Unavailable Severiano Daniel DO Unavailable Yarely Vega MD PCP Source Comments Some departments are not documenting in the electronic medical record. If you do not see the information that you expected, contact Release of Information in the Health Information Management department at [phone] for further assistance in locating additional records.[facility] Allergies Active Allergy Reactions Severity Noted Date [...] every Active tablet 6 hours as needed. [place]-3 Acid Ethyl Esters Take 1 Cap by [...] dual chamber PPM implanted by Dr. Sheila Saldivar. Sotalol initiation 10-18-11 Near syncope 09/16/2011 Overview: 09/14/11 hospital admission to [facility] in [place], [place]. Reveal device [id number] implanted by Allyn [...] Medical treatment, started Plavix. 09/14/11 Admitted to [facility] ( [facility]) with CP & palpitations. Stress test Lexiscan Myoview) showed no ischemia. EF 65% Echocardiogram: EF 70%. Mild LVH. La size 4.3cm. Mitral valve with myxomatous degeneration, mild MR. Palpitations 10/20/2011 Lower GI bleeding 10/18/2011 Encounters Date Type Specialty Care Team Description 11/30/2017 Documentation Cardiology Sasha Chen RN Amiodarone Monitoring (next due 04/29/18) 11/28/2017 Documentation Cardiology Shalini Blake [phone] 11/27/2017 Telephone Cardiology Leann Nguyen, STEVEN Amiodarone Monitoring ( CXR due 05/06, labs due 06/05 ) 11/27/2017 Orders Only Cardiology Leann Nguyen, STEVEN exterminator helper current use of amiodarone 11/27/2017 Telephone Cardiology Blanca Vincent RN Follow-up Phone Call 11/17/2017 Hospital Cardiology Ernesto Sosa MD Encounter 09/19/2017 Telephone Cardiology Mena Dozier RN from Last 3 Months Family History Medical [...] Taken Blood Pressure 110/78 05/18/2017 1:22 PM CARDROOM SUPERVISOR Pulse 77 05/18/2017 1:22 PM CARDROOM SUPERVISOR Temperature 36.5 C (97.7 F) 05/01/2013 11:23 AM CARDROOM SUPERVISOR Respiratory Rate 18 03/07/2013 2:25 PM CDT Oxygen Saturation 98% 05/01/2013 11:23 AM CARDROOM SUPERVISOR Inhaled Oxygen - - Concentration Weight 82 kg (180 lb 11.2 oz) 05/18/2017 1:22 PM CARDROOM SUPERVISOR Height 167.6 cm (5' 6") 05/18/2017 1:22 PM CARDROOM SUPERVISOR Body Mass Index 29.17 05/18/2017 1:22 PM CARDROOM SUPERVISOR Plan of Treatment Health Maintenance Due Date Last Done Comments PHYSICAL (COMPREHENSIVE) 1941 EXAM PERTUSSIS VACCINE 1945 TETANUS VACCINE 1951 SHINGLES VACCINE 1994 OSTEOPOROSIS SCREENING 1999 PNEUMONIA (PCV13/PPSV23) 1999 VACCINES (1 of 2 - PCV13) INFLUENZA VACCINE 03/19/2018 03/22/2017, 03/29/2007, 04/28/2004 Results * DEVICE EVALUATION - REMOTE PPM (11/28/2017 2:20 PM) Component Value Ref Range Generator Model # REVO MRI RVDR01 Generator Serial # [id number] Generator Implnat Date 10/18/2011 FÉLIX/EOL Indicator E COMMERCE WEB DEVELOPER=2.81V Generator Tomography Technologist Medtronic Generator Investigational No Wireless Generator No Device Type DDD-PM Atrial Lead Model # CAPSUREFIX MRI [facility] 5086-52cm Atrial Lead Serial # [id number] Atrial Lead Implant Date 10/18/2011 Atrial Lead Diaph. 10 Stimulation Atrial Lead Tomography Technologist Medtronic Atrial Lead No Investigational Atrial Lead Fixation active fixation Atrial Lead Location right atrial appendage Atrial Lead Pin Connector IS1 Atrial Lead Polarity Bipolar RV Lead Model # CAPSUREFIX MRI SURESCAN 5086-58cm RV Lead Serial # [id number] RV Lead Implant Date 10/18/2011 RV Lead Diaph. 10 Stimulation RV Lead Tomography Technologist Medtronic RV Lead Investigational No RV Lead [...] Patient No Date of Last Remote Check 11/16/17 Remote Monitoring? Yes EP Device Followed by Dr. Trejo Name EP Device Followed By MAC Device [place] Carelink Express Transmitter Compatible On AntiCoag Date 10/10/16 Known Diagnosed AFib Yes On Anticoagulation Yes Generator MRI Conditional Yes Atrial Lead MRI Yes Conditional LV Lead MRI Conditional Yes Remote Check? Yes Specimen Performing Laboratory OTHER OUTSIDE LAB Narrative Current monitoring period 11/16/17-02/16/18 [11/28/2017 2:22:42 PM - JYOTI KUMAR] Please see scanned data sheets for further review. Scheduled Carelink transmission received 11/16/17 and reviewed today for Dual chamber PPM. Device function appears appropriate. Presenting EGM shows Ap-Mixer Runner 95bpm. Battery longevity 2.93v (FÉLIX is 2.31v) Events noted since 08/18/17: Atrial:175 treated AT/AF, 45.7% successful; 37 monitored.AT/AF burden 8.6%. Longest 11hr on 10/11/17.Last several on 11/15/17 and 1 on 11/16/17. EGMs confirm AFib/flutter.V rates >100bpm ~5-7%. Ventricular:none. Next follow up appt pending Nov with Dr. Trejo. Next remote scheduled for 3 mo. Results routed to Dr. Trejo for signature and review. _ * THYROID STIMULATING HORMONE-TSH (11/23/2017) Component Value [...] Performing Laboratory Blood OTHER OUTSIDE LAB * LIPID PROFILE (11/23/2017) Component Value Ref [...] Specimen Performing Laboratory Blood OTHER OUTSIDE LAB from Last 3 Months
--- OUTSIDE RECORDS SUMMARY | 2017-12-06 18:41 | XMS REPORT | Encounter Summary ---
Author Author [facility] Organization [facility] Address Unknown Phone Unavailable Care Team Providers Care Rn Referral Name Role Phone Dorian Muse MD Unavailable Ernesto Sosa MD [address] Monterroso MD Unavailable Unavailable Dana Birmingham RN Unavailable Unavailable Severiano Daniel DO Unavailable Yarely Vega MD PCP Reason for Visit * Reason Comments Amiodarone Monitoring CXR due 05/06, labs due 06/05 Encounter Details Date Type Department Care Team Description 11/27/2017 Telephone [facility] Cardiology Leann Nguyen RN Amiodarone Monitoring ( [address] CXR due 05/06, [place] [address] 06/05 ) [phone] Social History Tobacco Use Types Packs/Day Years Used Date Never Smoker Smokeless Tobacco: Never Used Alcohol Use Drinks/Week oz/Week Comments No Sex Assigned at Date Recorded Not on file as of this encounter Miscellaneous Notes * Telephone Encounter - Leann Nguyen RN - 11/27/2017 4:13 PM CDT Formatting of this note may be different from the original. Amiodarone Monitoring status as of 11/27/17: Amiodarone monitoring complete. Next amiodarone review is due in 180 days. Most recent lab results Lab Results Component Value Date/Time AST 17 11/23/2017 ALT 16 11/23/2017 TSH 1.0 11/23/2017 TSH3G 5.02 (H) 05/18/2017 03:14 PM [id number] 1.04 11/23/2017 Procedures Last chest X-Ray: 04/27/17 in this encounter Plan of Treatment Not on fileas of this encounter Visit Diagnoses Not on filein this encounter
--- OUTSIDE RECORDS SUMMARY | 2017-12-06 18:41 | XMS REPORT | Encounter Summary ---
Author Author [facility] Organization [facility] Address Unknown Phone Unavailable Care Team Providers Care Billing Department Supervisor Name Role Phone Dorian Muse MD Unavailable Ernesto Sosa MD [address]terro[address] MD Unavailable Unavailable Dana Birmingham RN Unavailable Unavailable Severiano Daniel DO Unavailable Yarely Vega MD PCP Reason for Visit * Reason Comments Amiodarone Monitoring next due 04/29/18 Encounter Details Date Type Department Care Team Description 11/30/2017 Documentation [facility] Sasha Chen RN Amiodarone Monitoring [address] (next due 04/29/18) [address] [place] [address] Social History Tobacco Use Types Packs/Day Years Used Date Never Smoker Smokeless Tobacco: Never Used Alcohol Use Drinks/Week oz/Week Comments No Sex Assigned at Date Recorded Not on file as of this encounter Progress Notes * Sasha Chen, RN - 11/30/2017 8:49 AM CDT Formatting of this note may be different from the original. Amiodarone Monitoring status as of 11/30/17: Amiodarone monitoring complete. Next amiodarone review is due in 180 days. Most recent lab results Lab Results Component Value Date/Time AST 17 11/23/2017 ALT 16 11/23/2017 TSH 1.0 11/23/2017 TSH3G 5.02 (H) 05/18/2017 03:14 PM [id number] 1.04 11/23/2017 Procedures Last chest X-Ray: 10/27/17 in this encounter Plan of Treatment Not on fileas of this encounter Visit Diagnoses Not on filein this encounter
--- OUTSIDE RECORDS SUMMARY | 2017-12-06 18:41 | XMS REPORT | Encounter Summary ---
Author Author [facility] Organization [facility] Address Unknown Phone Unavailable Care Team Providers Care Nailhead Setter Name Role Phone Dorian Muse MD Unavailable Ernesto Sosa MD [address]terroso MD Unavailable Unavailable Dana Birmingham RN Unavailable Unavailable Severiano Daniel DO Unavailable Yarely Vega MD PCP Encounter Details Date Type Department Care Team Description 11/17/2017 [facility] Cardiology Ernesto Sosa MD Encounter Remote Device Check [address] [facility] [phone] [address] [place] [address] [phone] Social History Tobacco Use Types Packs/Day Years Used Date Never Smoker Smokeless Tobacco: Never Used Alcohol Use Drinks/Week oz/Week Comments No Sex Assigned at Date Recorded Not on file as of this encounter Medications at Time of Discharge Medication Sig. Disp. Refills Start Date End Date alprazolam (XANAX) 0.25 Take 0.25 mg by mouth mg tablet twice daily as needed. amiodarone (CORDARONE) Take 0.5 tablets by mouth 45 tablet 3 2016 200 mg tablet daily. Take with food. amLODIPine (NORVASC) 5 mg Take 5 mg [...] mouth twice (LOPRESSOR) 25 mg tablet daily. [place]-3 Acid Ethyl Esters Take 1 Cap by [...] mouth every tablet 6 hours as needed. as of this encounter Plan of Treatment Not on fileas of this encounter Results * DEVICE EVALUATION - REMOTE PPM (11/28/2017 2:20 PM) Component Value Ref Range Generator Model # REVO MRI RVDR01 Generator Serial # [id number] Generator Implnat Date 10/18/2011 FÉLIX/EOL Indicator CISTERN ROOM OPERATOR=2.81V Generator Washer And Capper Machine Operator Medtronic Generator Investigational No Wireless Generator No Device Type DDD-PM Atrial Lead Model # CAPSUREFIX MRI SURESCAN 5086-52cm Atrial Lead Serial # [id number] Atrial Lead Implant Date 10/18/2011 Atrial Lead Diaph. 10 Stimulation Atrial Lead Washer And Capper Machine Operator Medtronic Atrial Lead No Investigational Atrial Lead Fixation active fixation Atrial Lead Location right atrial appendage Atrial Lead Pin Connector IS1 Atrial Lead Polarity Bipolar RV Lead Model # CAPSUREFIX MRI SURESCAN 5086-58cm RV Lead Serial # [id number] RV Lead Implant Date 10/18/2011 RV Lead Diaph. 10 Stimulation RV Lead Washer And Capper Machine Operator Medtronic RV Lead Investigational No RV [...] Name EP Device Followed By MAC Device [place] Carelink Express Transmitter Compatible On AntiCoag Date [...] Device function appears appropriate. Presenting EGM shows Ap-Linting Machine Operator 95bpm. Battery longevity 2.93v (FÉLIX is 2.31v) Events noted since 08/18/17: Atrial:175 treated AT/AF, 45.7% successful; 37 monitored.AT/AF burden 8.6%. Longest 11hr on 10/11/17.Last several on 11/15/17 and 1 on 11/16/17. EGMs confirm AFib/flutter.V rates >100bpm ~5-7%. Ventricular:none. Next follow up appt pending Nov with Dr. Trejo. Next remote scheduled for 3 mo. Results routed to Dr. Trejo for signature and review. _ in this encounter Visit Diagnoses Diagnosis Cardiac pacemaker in situ Paroxysmal atrial fibrillation (HCC) Atrial fibrillation
--- OUTSIDE RECORDS SUMMARY | 2017-12-06 18:41 | XMS REPORT | Encounter Summary ---
Author Author [facility] Organization [facility] Address Unknown Phone Unavailable Care Team Providers Care Exchange Specialist Name Role Phone Dorian Muse MD Unavailable Ernesto Sosa MD [address]terroso MD Unavailable Unavailable Dana Birmingham RN Unavailable Unavailable Severiano Daniel DO Unavailable Yarely Vega MD PCP Reason for Visit * Reason Comments Follow-up Phone Call Encounter Details Date Type Department Care Team Description 11/27/2017 Telephone [facility] Cardiology Blanca Vincent RN Follow-up Phone Call [address] [facility] [address] [place] [address] Social History Tobacco Use Types Packs/Day Years Used Date Never Smoker Smokeless Tobacco: Never Used Alcohol Use Drinks/Week oz/Week Comments No Sex Assigned at Date Recorded Not on file as of this encounter Miscellaneous Notes * Telephone Encounter - Shalini Blake - 11/30/2017 9:53 AM CDT Chest X-ray received LM with Dipika letting her know. * Telephone Encounter - Blanca Vincent RN - 11/27/2017 4:00 PM CDT Patients daughter calling to confirm that amio labs were received. She also tells me that patient had CXR at [facility] in [place], [place] about 5 weeks ago. Will request from them. Dipika is requesting CB once these are received. * Telephone Encounter - Blanca Vincent RN - 11/27/2017 3:55 PM CDT ----- Message from Annie Marie LPN sent at 11/27/2017 3:34 PM CDT ----- Regarding: MPE- testing question VM from daughter Dipika # [phone], on triage line. She has questions about Amiodarone testing. in this encounter Plan of Treatment Not on fileas of this encounter Visit Diagnoses Not on filein this encounter
[2017-12-06] MEDS ORDERED: RX-IPRATROPIUM BROMIDE 0.5 MG/2.5 ML #3 (ATROVENT) IH ONE (18:54)
--- OUTSIDE RECORDS SUMMARY | 2017-12-06 19:08 | XMS REPORT | Continuity of Care Document ---
Author Author [facility] Organization [facility] Address Unknown Phone Unavailable Allergies Active Description Code Type Severity Reaction Onset Reported/Identified Relationship to Patient Clinical Status Yes codeine [id number] Drug Allergy Unknown N/A 09/09/2008 Yes hydrochlorothiazide [id number] Drug Allergy Unknown N/A 09/09/2008 Yes morphine [id number] Drug Allergy Unknown N/A 09/09/2008 Yes PENCILLIN PENCILLIN Unknown N/A 09/17/2017 Medications There is no data. Problems Date [...] EGAN MD Ot 414.01 CORONARY ATHEROSCLEROSIS OF [place] CORON 12/21/2012 ARUNA EGAN MD Ot 427.0 [...] Ot V45.01 CARDIAC PACEMAKER IN SITU 11/25/2013 JAMES MOTTA DO Ot 244.9 HYPOTHYROIDISM NOS 11/25/2013 KALIA JAMES DICK Ot 272.0 PURE HYPERCHOLESTEROLEM 11/25/2013 JAMES MOTTA [...] ARAGON MD Ot 414.01 CORONARY ATHEROSCLEROSIS OF [place] CORON 05/22/2014 CURT ARAGON MD Ot 416.8 [...] 272.4 06/02/2014 KYLE YANG Ot 401.9 06/02/2014 JACQUES PA, KYLE K Ot 414.00 06/02/2014 JACQUES PA, KYLE K Ot 786.50 06/05/2014 JACQUES PA, KYLE K Ot 272.4 06/05/2014 JACQUES PA, KYLE K Ot 396.3 06/05/2014 JACQUES PA, KYLE K Ot 397.0 06/05/2014 JACQUES PA, KYLE K Ot 401.9 06/05/2014 JACQUES PA, KYLE K Ot 414.00 06/05/2014 JACQUES PA, KYLE K Ot 429.3 06/05/2014 JACQUES QUINTANILLA, KYLE K Ot 786.50 10/22/2014 [place] NATION, AIDA Ibarra [...] Vale Ot 611.71 12/22/2014 [place], CURT J Ot 401.9 12/22/2014 [place], CURT J [...] MADRIGAL-ALEXANDER PA, KYLE K Ot 414.00 12/22/2014 JACQUES QUINTANILLA, KYLE K Ot 786.50 12/22/2014 [place], BERTHA Daniels Ot 427.31 01/14/2015 LUCIANO SALOMON INSPECTOR OPEN DIE Ot 244.9 01/14/2015 LUCIANO SALOMON INSPECTOR OPEN DIE Ot 787.20 03/10/2015 LUCIANO SALOMON INSPECTOR OPEN DIE Ot V76.12 05/06/2015 KALIA DO, JAMES K Ot F03.90 UNSPECIFIED DEMENTIA WITHOUT BEHAVIORAL 05/06/2015 KALIA DO, JAMES K Ot R11.0 NAUSEA 05/06/2015 KALIA DO, JAMES K Ot R51 HEADACHE 05/06/2015 KALIA DO, JAMES K Ot R53.1 WEAKNESS 05/06/2015 KALIA DO, JAMES K Ot Z95.0 PRESENCE OF CARDIAC PACEMAKER 06/09/2015 [place]ATION, CARTER Saldivar Ot M25.511 06/09/2015 [place]ATION, CARTER Saldivar Ot M54.2 06/30/2015 JACQUES QUINTANILLA, KYLE Hurst Ot E78.2 06/30/2015 JACQUES QUINTANILLA, KYLE K Ot I10 06/30/2015 JACQUES QUINTANILLA, KYLE K Ot I25.10 06/30/2015 JACQUES QUINTANILLA, KYLE K Ot I65.23 06/30/2015 [place], CURT Montes De Oca Ot E78.2 06/30/2015 [place], CURT Montes [place]ca Ot I10 06/30/2015 [place], CURT Montes [place]ca Ot I25.10 07/15/2015 MINO GARCIA MD Ot K21.0 GASTRO-ESOPHAGEAL REFLUX DISEASE WITH ES 07/15/2015 MINO GARCIA MD Ot K44.9 DIAPHRAGMATIC HERNIA WITHOUT OBSTRUCTION 07/27/2015 LUCIANO SALOMON INSPECTOR OPEN DIE Ot E04.1 10/05/2015 BERTHA DHALIWAL MD Ot Z51.81 ENCOUNTER FOR THERAPEUTIC DRUG LEVEL MON 10/05/2015 BERTHA DHALIWAL MD Ot Z79.899 OTHER INSPECTOR AND MENDER (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 THERAPY 10/08/2015 BERTHA DHALIWAL MD Ot Z51.81 ENCOUNTER FOR THERAPEUTIC DRUG LEVEL MON 10/08/2015 BERTHA DHALIWAL MD Ot Z79.899 OTHER JAIL (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 THERAPY 10/22/2015 [place], BERTHA Daniels Ot Z51.81 ENCOUNTER FOR THERAPEUTIC DRUG LEVEL MON 10/22/2015 [place], BERTHA Daniels Ot Z79.899 OTHER INSPECTOR AND MENDER (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 THERAPY 11/08/2015 BEV NATION, FRANCISCO [...] Saldivar Ot R06.83 SNORING 02/26/2016 NOEL ZARAGOZA BAIT TIER Ot M54.9 DORSALGIA, UNSPECIFIED 02/26/2016 NOEL ZARAGOZA BAIT TIER Ot R07.9 CHEST PAIN, UNSPECIFIED 02/26/2016 NOEL ZARAGOZA BAIT TIER Ot R61 GENERALIZED HYPERHIDROSIS 02/26/2016 NOEL ZARAGOZA BAIT TIER Ot M54.9 DORSALGIA, UNSPECIFIED 02/26/2016 NOEL ZARAGOZA BAIT TIER Ot R07.9 CHEST PAIN, UNSPECIFIED 02/26/2016 NOEL ZARAGOZA BAIT TIER Ot R61 GENERALIZED HYPERHIDROSIS 03/07/2016 Ot 611.71 [...] CHEST PAIN NOS 03/07/2016 [place], BERTHA Daniels Ot 427.31 ATRIAL FIBRILLATION 03/07/2016 SALOMON, LUCIANO M INSPECTOR OPEN DIE Ot 244.9 HYPOTHYROIDISM NOS 03/07/2016 LUCIANO SALOMON INSPECTOR OPEN DIE Ot 787.20 DYSPHAGIA, UNSPECIFIED 03/07/2016 LUCIANO SALOMON INSPECTOR OPEN DIE Ot V76.12 OTH SCREEN MAMMO-MALIGN NEOPLASM OF [place] 03/07/2016 KYLE AYNG Ot E78.2 MIXED HYPERLIPIDEMIA 03/07/2016 KYLE YANG Ot I10 ESSENTIAL (PRIMARY) HYPERTENSION 03/07/2016 KYLE YANG Ot I25.10 ATHSCL HEART DISEASE OF [place] CORONARY 03/07/2016 KYLE YANG Ot I65.23 OCCLUSION AND STENOSIS OF [place] 03/07/2016 [place], CURT Montes De Oca Ot E78.2 MIXED HYPERLIPIDEMIA 03/07/2016 CURT ARAGON MD Ot I10 ESSENTIAL (PRIMARY) HYPERTENSION 03/07/2016 CURT ARAGON MD Ot I25.10 ATHSCL HEART DISEASE OF [place] CORONARY 03/07/2016 CARTER BADILLO MD Ot M25.511 PAIN IN RIGHT SHOULDER 03/07/2016 CARTER BADILLO MD Ot M54.2 CERVICALGIA 03/07/2016 LUCIANO SALOMON INSPECTOR OPEN DIE Ot E04.1 NONTOXIC SINGLE THYROID NODULE 03/07/2016 MINO GARCIA MD Ot R13.10 DYSPHAGIA, UNSPECIFIED 03/07/2016 MINO GARCIA MD Ot Z01.818 ENCOUNTER FOR OTHER PREPROCEDURAL EXAMIN 03/07/2016 BERTHA DHALIWAL MD Ot Z51.81 ENCOUNTER FOR THERAPEUTIC DRUG LEVEL MON 03/07/2016 BERTHA DHALIWAL MD Ot Z79.899 OTHER JAIL (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 THERAPY 03/07/2016 NOEL ZARAGOZA APRN Ot M54.9 DORSALGIA, UNSPECIFIED 03/07/2016 NOEL ZARAGOZA APRN Ot R07.9 CHEST PAIN, UNSPECIFIED 03/07/2016 NOEL ZARAGOZA APRN Ot R61 GENERALIZED HYPERHIDROSIS 03/07/2016 NOEL ZARAGOZA APRN Ot Z12.31 ENCNTR SCREEN MAMMOGRAM FOR MALIGNANT NE 03/08/2016 NOEL ZARAGOZA APRN Ot Z12.31 ENCNTR SCREEN MAMMOGRAM FOR MALIGNANT NE 03/08/2016 NIK, NOEL M BAIT TIER Ot Z12.31 ENCNTR SCREEN MAMMOGRAM FOR MALIGNANT NE 03/08/2016 NOEL ZARAGOZA BAIT TIER Ot Z12.31 ENCNTR SCREEN MAMMOGRAM FOR MALIGNANT NE 03/17/2016 NOEL ZARAGOZA BAIT TIER Ot M54.9 DORSALGIA, UNSPECIFIED 03/17/2016 NOEL ZARAGOZA BAIT TIER Ot R07.9 CHEST PAIN, UNSPECIFIED 03/17/2016 NOEL ZARAGOZA BAIT TIER Ot R61 GENERALIZED HYPERHIDROSIS 03/17/2016 NOEL ZARAGOZA BAIT TIER Ot Z12.31 ENCNTR SCREEN MAMMOGRAM FOR MALIGNANT [...] NOS TYPE VESSEL, NATIV 06/30/2016 [place], CUTR Montes De Oca Ot 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 [...] KYLE YANG Ot 401.9 HYPERTENSION NOS 06/30/2016 JACQUES QUINTANILLA KYLE Natali Ot 414.00 CORON ATHEROSCLER NOS TYPE VESSEL, NATIV 06/30/2016 JACQUES QUINTANILLA KYLE K Ot 429.3 CARDIOMEGALY 06/30/2016 JACQUES QUINTANILLA KYLE K Ot 786.50 CHEST PAIN NOS 06/30/2016 JACQUES QUINTANILLA KYLE K Ot 272.4 HYPERLIPIDEMIA NEC/NOS 06/30/2016 JACQUES QUINTANILLA KYLE K Ot 401.9 HYPERTENSION NOS 06/30/2016 JACQUES QUINTANILLA KYLE K Ot 414.00 CORON ATHEROSCLER NOS TYPE VESSEL, NATIV 06/30/2016 JACQUES QUITNANILLA KYLE K Ot 786.50 CHEST PAIN NOS 06/30/2016 [place], BERTHA Daniels Ot 427.31 ATRIAL FIBRILLATION 06/30/2016 LUCIANO SALOMON INSPECTOR OPEN DIE Ot 244.9 HYPOTHYROIDISM NOS 06/30/2016 LUCIANO SALOMON INSPECTOR OPEN DIE Ot 787.20 DYSPHAGIA, UNSPECIFIED 06/30/2016 LUCIANO SALOMON INSPECTOR OPEN DIE Ot V76.12 OTH SCREEN MAMMO-MALIGN NEOPLASM OF [place] 06/30/2016 KYLE YANG Ot E78.2 MIXED HYPERLIPIDEMIA 06/30/2016 KYLE YANG Ot I10 ESSENTIAL (PRIMARY) HYPERTENSION 06/30/2016 KYLE YANG Ot I25.10 ATHSCL HEART DISEASE OF [place] CORONARY 06/30/2016 KYLE YANG Ot I65.23 OCCLUSION AND STENOSIS OF [place] 06/30/2016 CURT ARAGON MD Ot E78.2 MIXED HYPERLIPIDEMIA 06/30/2016 CURT ARAGON MD Ot I10 ESSENTIAL (PRIMARY) HYPERTENSION 06/30/2016 CURT ARAGON MD Ot I25.10 ATHSCL HEART DISEASE OF [place] CORONARY 06/30/2016 [place], CARTER Saldivar Ot M25.511 PAIN IN RIGHT SHOULDER 06/30/2016 CARTER BADILLO MD Ot M54.2 CERVICALGIA 06/30/2016 LUCIANO SALOMON INSPECTOR OPEN DIE Ot E04.1 NONTOXIC SINGLE THYROID NODULE 06/30/2016 [place] NATION, MINO Ot R13.10 DYSPHAGIA, UNSPECIFIED 06/30/2016 [place] NATION, MINO Ot Z01.818 ENCOUNTER FOR OTHER PREPROCEDURAL EXAMIN 06/30/2016 BERTHA DHALIWAL MD Ot Z51.81 ENCOUNTER FOR THERAPEUTIC DRUG LEVEL MON 06/30/2016 BERTHA DHALIWAL MD Ot Z79.899 OTHER INSPECTOR AND MENDER (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 THERAPY 06/30/2016 NOEL ZARAGOZA BAIT TIER Ot M54.9 DORSALGIA, UNSPECIFIED 06/30/2016 NOEL ZARAGOZA BAIT TIER Ot R07.9 CHEST PAIN, UNSPECIFIED 06/30/2016 NOEL ZARAGOZA BAIT TIER Ot R61 GENERALIZED HYPERHIDROSIS 06/30/2016 NOEL ZARAGOZA BAIT TIER Ot Z12.31 ENCNTR SCREEN MAMMOGRAM FOR MALIGNANT [...] 553.3 DIAPHRAGMATIC HERNIA 06/30/2016 JENELLE NATION, PJ Wells Ot 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, ACQUIRED 06/30/2016 JENELLE NATION, PJ Wells Ot 789.00 ABDOMINAL PAIN, UNSPECIFIED SITE 06/30/2016 JULISA NATION, ARUNA Vale Ot V76.12 OTH SCREEN MAMMO-MALIGN NEOPLASM OF [place] 06/30/2016 KYLE YANG Ot 272.4 HYPERLIPIDEMIA NEC/NOS 06/30/2016 KYLE YANG Ot 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 06/30/2016 JACQUES QUINTANILLA KYLE K Ot 397.0 TRICUSPID VALVE DISEASE 06/30/2016 JACQUES QUINTANILLA KYLE K Ot 401.9 HYPERTENSION NOS 06/30/2016 JACQUES QUINTANILLA KYLE K Ot 414.00 CORON ATHEROSCLER NOS TYPE VESSEL, NATIV 06/30/2016 JACQUES QUINTANILLA KYLE K Ot 429.3 CARDIOMEGALY 06/30/2016 JACQUES QUINTANILLA KYLE K Ot 786.50 CHEST PAIN NOS 06/30/2016 JACQUES QUINTANILLA KYLE K Ot 272.4 HYPERLIPIDEMIA NEC/NOS 06/30/2016 JACQUES QUINTANILLA KYLE K Ot 401.9 HYPERTENSION NOS 06/30/2016 JACQUES QUINTANILLA KYLE K Ot 414.00 CORON ATHEROSCLER NOS TYPE VESSEL, NATIV 06/30/2016 JACQUES QUINTANILLA KYLE K Ot 786.50 CHEST PAIN NOS 06/30/2016 [place], BERTHA Daniels Ot 427.31 ATRIAL FIBRILLATION 06/30/2016 LUCIANO SALOMON INSPECTOR OPEN DIE Ot 244.9 HYPOTHYROIDISM NOS 06/30/2016 LUCIANO SALOMON INSPECTOR OPEN DIE Ot 787.20 DYSPHAGIA, UNSPECIFIED 06/30/2016 LUCIANO SALOMON INSPECTOR OPEN DIE Ot V76.12 OTH SCREEN MAMMO-MALIGN NEOPLASM OF [place] 06/30/2016 JACQUES QUINTANILLA KYLE K Ot E78.2 MIXED HYPERLIPIDEMIA 06/30/2016 JACQUES QUINTANILLA KYLE K Ot I10 ESSENTIAL (PRIMARY) HYPERTENSION 06/30/2016 JACQUES QUINTANILLA KYLE K Ot I25.10 ATHSCL HEART DISEASE OF [place] CORONARY 06/30/2016 JACQUES QUINTANILLA KYLE K Ot I65.23 OCCLUSION AND STENOSIS OF [place] 06/30/2016 CURT ARAGON MD Ot E78.2 MIXED HYPERLIPIDEMIA 06/30/2016 CURT ARAGON MD Ot I10 ESSENTIAL (PRIMARY) HYPERTENSION 06/30/2016 CURT ARAGON MD Ot I25.10 ATHSCL HEART DISEASE OF [place] CORONARY 06/30/2016 CARTER BADILLO MD Ot M25.511 PAIN IN RIGHT SHOULDER 06/30/2016 CARTER BADILLO MD Ot M54.2 CERVICALGIA 06/30/2016 UMMLUCIANO INSPECTOR OPEN DIE Ot E04.1 NONTOXIC SINGLE THYROID NODULE 06/30/2016 [place] NATION, MINO Ot R13.10 DYSPHAGIA, UNSPECIFIED 06/30/2016 [place] NATION, MINO Ot Z01.818 ENCOUNTER FOR OTHER PREPROCEDURAL EXAMIN 06/30/2016 [place], BERTHA Daniels Ot Z51.81 ENCOUNTER FOR THERAPEUTIC DRUG LEVEL MON 06/30/2016 [place], BERTHA Daniels Ot Z79.899 OTHER INSPECTOR AND MENDER (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 THERAPY 06/30/2016 NOEL ZARAGOZA BAIT TIER Ot M54.9 DORSALGIA, UNSPECIFIED 06/30/2016 NOEL ZARAGOZA BAIT TIER Ot R07.9 CHEST PAIN, UNSPECIFIED 06/30/2016 NOEL ZARAGOZA BAIT TIER Ot R61 GENERALIZED HYPERHIDROSIS 06/30/2016 NOEL ZARAGOZA BAIT TIER Ot Z12.31 ENCNTR SCREEN MAMMOGRAM FOR MALIGNANT NE 07/01/2016 ISACCHO DPM, SNOW Frias Ot D17.79 BENIGN LIPOMATOUS [...] MD Ot I25.10 ATHSCL HEART DISEASE OF [place] CORONARY 08/09/2016 CARTER BADILLO MD Ot I51.7 CARDIOMEGALY 08/09/2016 CARTER BADILLO MD Ot 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, 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 08/09/2016 ABY MD, CARTER A Ot K44.9 DIAPHRAGMATIC HERNIA WITHOUT OBSTRUCTION 08/20/2016 TAD BOSS Ot I10 ESSENTIAL (PRIMARY) HYPERTENSION 08/20/2016 TAD BOSS Ot L76.31 POSTPROC HEMATOMA OF SKIN, SUBCU FOL A D 08/20/2016 TAD BOSS Ot T81.4XXA INFECTION FOLLOWING A PROCEDURE, INITIAL 08/20/2016 TAD BOSS Ot Z79.899 OTHER JAIL (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 THERAPY 08/20/2016 TAD BOSS Ot Z95.0 PRESENCE OF CARDIAC PACEMAKER 08/21/2016 TAD BOSS Ot T81.4XXA INFECTION FOLLOWING A PROCEDURE, INITIAL 08/22/2016 TAD BOSS Ot I10 ESSENTIAL (PRIMARY) HYPERTENSION 08/22/2016 TAD BOSS Ot L76.31 POSTPROC HEMATOMA OF SKIN, SUBCU FOL A D 08/22/2016 TAD BOSS Ot T81.4XXA INFECTION FOLLOWING A PROCEDURE, INITIAL 08/22/2016 TAD BOSS Ot Z79.899 OTHER JAIL (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 THERAPY 08/22/2016 TAD BOSS Ot [...] CORON ATHEROSCLER NOS TYPE VESSEL, NATIV 09/16/2016 MAR[place] MD, BASHAR J Ot 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 OCCLUSION NOS W CEREBRAL IN 09/16/2016 JENELLE NATION, PJ Wells Ot 553.3 DIAPHRAGMATIC HERNIA 09/16/2016 JENEL[place] NATION, PJ Wells Ot 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, ACQUIRED 09/16/2016 JENELLE NATION, PJ Wells Ot 789.00 ABDOMINAL PAIN, UNSPECIFIED SITE 09/16/2016 [place]UL[place] NATION, ARUNA Vale Ot V76.12 OTH SCREEN MAMMO-MALIGN NEOPLASM OF [place] 09/16/2016 KYLE YANG Ot 272.4 HYPERLIPIDEMIA NEC/NOS 09/16/2016 KYLE YANG Ot 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 09/16/2016 KYLE YANG Ot 397.0 TRICUSPID VALVE DISEASE 09/16/2016 KYLE YANG K Ot 401.9 HYPERTENSION NOS 09/16/2016 KYLE YANG K Ot 414.00 CORON ATHEROSCLER NOS TYPE VESSEL, NATIV 09/16/2016 KYLE YANG Ot 429.3 CARDIOMEGALY 09/16/2016 KYLE YANG K Ot 786.50 CHEST PAIN NOS 09/16/2016 KYLE YANG Ot 272.4 HYPERLIPIDEMIA NEC/NOS 09/16/2016 KYLE YANG K Ot 401.9 HYPERTENSION NOS 09/16/2016 KYLE YANG K Ot 414.00 CORON ATHEROSCLER NOS TYPE VESSEL, NATIV 09/16/2016 KYLE YANG K Ot 786.50 CHEST PAIN NOS 09/16/2016 [place], BERTHA P Ot 427.31 ATRIAL FIBRILLATION 09/16/2016 LUCIANO SALOMON INSPECTOR OPEN DIE Ot 244.9 HYPOTHYROIDISM NOS 09/16/2016 LUCIANO SALOMON INSPECTOR OPEN DIE Ot 787.20 DYSPHAGIA, UNSPECIFIED 09/16/2016 LUCIANO SALOMON INSPECTOR OPEN DIE Ot V76.12 OTH SCREEN MAMMO-MALIGN NEOPLASM OF [place]ERR[place] 09/16/2016 KYLE YANG Ot E78.2 MIXED HYPERLIPIDEMIA 09/16/2016 KYLE YANG K Ot I10 ESSENTIAL (PRIMARY) HYPERTENSION 09/16/2016 KYLE YANG Ot I25.10 ATHSCL HEART DISEASE OF [place] CORONARY 09/16/2016 KYLE YANG Ot I65.23 OCCLUSION AND STENOSIS OF [place] 09/16/2016 CURT ARAGON MD Ot E78.2 MIXED HYPERLIPIDEMIA 09/16/2016 CURT ARAGON MD Ot I10 ESSENTIAL (PRIMARY) HYPERTENSION 09/16/2016 CURT ARAGON MD Ot I25.10 ATHSCL HEART DISEASE OF [place] CORONARY 09/16/2016 CARTER BADILLO MD Ot M25.511 [...] 09/16/2016 BERTHA DHALIWAL MD Ot Z79.899 OTHER INSPECTOR AND MENDER (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 THERAPY 09/16/2016 NOEL ZARAGOZA APRN Ot M54.9 DORSALGIA, UNSPECIFIED 09/16/2016 NOEL ZARAGOZA BAIT TIER Ot R07.9 CHEST PAIN, UNSPECIFIED 09/16/2016 NOEL ZARAGOZA BAIT TIER Ot R61 GENERALIZED HYPERHIDROSIS 09/16/2016 NOEL ZARAGOZA APRN Ot Z12.31 ENCNTR SCREEN MAMMOGRAM FOR MALIGNANT NE 09/16/2016 STAN TUCKERM, SNOW Frias Ot 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 09/16/2016 KYLE YANG Ot 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, 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 09/16/2016 CARTER BADILLO MD Ot E04.2 NONTOXIC MULTINODULAR GOITER 09/16/2016 CARTER BADILLO MD Ot I25.10 ATHSCL HEART DISEASE OF [place] CORONARY 09/16/2016 CARTER BADILLO MD Ot I51.7 CARDIOMEGALY 09/16/2016 CARTER BADILLO MD Ot 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, 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 09/16/2016 [place] NATION, CARTER A Ot K44.9 DIAPHRAGMATIC HERNIA WITHOUT OBSTRUCTION 09/19/2016 BERTHA DHALIWAL MD, Ot J44.9 CHRONIC OBSTRUCTIVE PULMONARY DISEASE, U 09/19/2016 BERTHA DHALIWAL MD Ot K44.9 DIAPHRAGMATIC HERNIA WITHOUT OBSTRUCTION 09/19/2016 BERTHA DHALIWAL MD Ot Z51.81 ENCOUNTER FOR THERAPEUTIC DRUG LEVEL MON 09/19/2016 BERTHA DHALIWAL MD Ot Z79.899 OTHER JAIL (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 THERAPY 10/10/2016 BERTHA DHALIWAL MD, Ot J44.9 CHRONIC OBSTRUCTIVE PULMONARY DISEASE, U 10/10/2016 BERTHA DHALIWAL MD Ot K44.9 DIAPHRAGMATIC HERNIA WITHOUT OBSTRUCTION 10/10/2016 BERTHA DHALIWAL MD Ot Z51.81 ENCOUNTER FOR THERAPEUTIC DRUG LEVEL MON 10/10/2016 BERTHA DHALIWAL MD Ot Z79.899 OTHER JAIL (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 THERAPY 10/28/2016 ANJELICA HUBBARD MD Ot L92.8 OTH GRANULOMATOUS DISORDERS OF THE SKIN, 10/28/2016 ANJELICA HUBBARD MD Ot 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 10/28/2016 ANJELICA HUBBARD MD Ot T81.31XA DISRUPTION OF EXTERNAL OPERATION (SURGIC 12/06/2016 ANJELICA HUBBARD MD Ot L92.8 OTH GRANULOMATOUS DISORDERS OF THE SKIN, 12/06/2016 ANJELICA HUBBARD MD Ot 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 12/06/2016 ANJELICA HUBBARD MD Ot T81.31XA DISRUPTION OF EXTERNAL OPERATION (SURGIC 12/08/2016 ANJELICA HUBBARD MD Ot L92.8 OTH GRANULOMATOUS DISORDERS OF THE [...] Ot 427.31 ATRIAL FIBRILLATION 12/23/2016 LUCIANO SALOMON Ot 244.9 HYPOTHYROIDISM NOS 12/23/2016 LUCIANO SALOMON INSPECTOR OPEN DIE Ot 787.20 DYSPHAGIA, UNSPECIFIED 12/23/2016 LUCIANO SALOMON INSPECTOR OPEN DIE Ot V76.12 OTH SCREEN MAMMO-MALIGN NEOPLASM OF PERR[place] 12/23/2016 KYLE YANG Ot E78.2 MIXED HYPERLIPIDEMIA 12/23/2016 KYLE YANG Ot I10 ESSENTIAL (PRIMARY) HYPERTENSION 12/23/2016 KYLE YANG Ot I25.10 ATHSCL HEART DISEASE OF [place] CORONARY 12/23/2016 KYLE YANG Ot I65.23 OCCLUSION AND STENOSIS OF [place] 12/23/2016 CURT ARAGON MD, Ot E78.2 MIXED HYPERLIPIDEMIA 12/23/2016 CURT ARAGON MD, Ot I10 ESSENTIAL (PRIMARY) HYPERTENSION 12/23/2016 CURT ARAGON MD Ot I25.10 ATHSCL HEART DISEASE OF [place] CORONARY 12/23/2016 CARTER BADILLO MD Ot M25.511 PAIN IN RIGHT SHOULDER 12/23/2016 CARTER BADILLO MD Ot M54.2 CERVICALGIA 12/23/2016 LUCIANO SALOMON Ot E04.1 NONTOXIC SINGLE THYROID NODULE 12/23/2016 MINO GARCIA MD Ot R13.10 DYSPHAGIA, UNSPECIFIED 12/23/2016 MINO GARCIA MD Ot Z01.818 ENCOUNTER FOR OTHER PREPROCEDURAL EXAMIN 12/23/2016 BERTHA DHALIWAL MD Ot Z51.81 ENCOUNTER FOR THERAPEUTIC DRUG LEVEL MON 12/23/2016 BERTHA DHALIWAL MD Ot Z79.899 OTHER INSPECTOR AND MENDER (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 THERAPY 12/23/2016 NOEL ZARAGOZA APRN [...] Saldivar Ot I25.10 ATHSCL HEART DISEASE OF [place] CORONARY 12/23/2016 [place] NATION, CARTER Saldivar Ot [...] Ot Z51.81 ENCOUNTER FOR THERAPEUTIC DRUG LEVEL [facility] 12/23/2016 [place], BERTHA Daniels Ot Z79.899 OTHER INSPECTOR AND MENDER (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 THERAPY 12/29/2016 MELY METCALF DO [...] METCALF DO Ot E66.9 OBESITY, UNSPECIFIED 01/11/2017 TEAMELY TURNER DO Ot F03.90 UNSPECIFIED DEMENTIA WITHOUT BEHAVIORAL 01/11/2017 TEAMELY UTRNER DO Ot F41.9 ANXIETY DISORDER, UNSPECIFIED 01/11/2017 MELY METCALF DO Ot E66.9 OBESITY, UNSPECIFIED 01/11/2017 MELY METCALF DO Ot F03.90 UNSPECIFIED DEMENTIA WITHOUT BEHAVIORAL 01/11/2017 TEA MELY Vale Ot F41.9 ANXIETY DISORDER, UNSPECIFIED 01/11/2017 TEA DICK MELY Vale Ot E66.9 OBESITY, UNSPECIFIED 01/11/2017 MELY METCALF DO Ot F03.90 UNSPECIFIED DEMENTIA WITHOUT BEHAVIORAL 01/11/2017 TEA MELY Vale Ot F41.9 ANXIETY DISORDER, UNSPECIFIED 01/18/2017 MELY METCALF DO Ot E66.9 OBESITY, UNSPECIFIED 01/18/2017 TEA MELY DICK Ot F03.90 UNSPECIFIED DEMENTIA WITHOUT BEHAVIORAL 01/18/2017 TEA MELY Vale Ot F41.9 ANXIETY DISORDER, UNSPECIFIED 03/02/2017 NOEL ZARAGOZA BAIT TIER Ot Z12.31 ENCNTR SCREEN MAMMOGRAM FOR MALIGNANT NE 03/08/2017 NOEL ZARAGOZA BAIT TIER Ot Z12.31 ENCNTR SCREEN MAMMOGRAM FOR MALIGNANT NE 03/15/2017 NOEL ZARAGOZA BAIT TIER Ot Z12.31 ENCNTR SCREEN MAMMOGRAM FOR MALIGNANT NE 03/30/2017 NEOL ZARAGOZA BAIT TIER Ot Z12.31 ENCNTR SCREEN MAMMOGRAM FOR MALIGNANT NE 04/17/2017 NOEL ZARAGOZA BAIT TIER Ot Z12.31 ENCNTR SCREEN MAMMOGRAM FOR MALIGNANT NE 04/27/2017 Ot V76.12 OTH SCREEN MAMMO-MALIGN NEOPLASM OF PERRY 04/27/2017 Ot 793.80 UNSPEC ABNORMAL MAMMOGRAM 04/27/2017 Ot V72.84 EXAM PRE- OPERATIVE NOS 04/27/2017 [place] NATION, ARUNA Vale Ot 611.71 MASTODYNIA 04/27/2017 CURT ARAGON MD [...] Ot 401.9 HYPERTENSION NOS 04/27/2017 KYLE YANG K Ot 414.00 CORON ATHEROSCLER NOS TYPE VESSEL, NATIV 04/27/2017 KYLE YANG K Ot 429.3 CARDIOMEGALY 04/27/2017 KYLE YANG K Ot 786.50 CHEST PAIN NOS 04/27/2017 KYLE YANG Ot 272.4 HYPERLIPIDEMIA NEC/NOS 04/27/2017 KYLE YANG K Ot 401.9 HYPERTENSION NOS 04/27/2017 KYLE YANG Ot 414.00 CORON ATHEROSCLER NOS TYPE VESSEL, NATIV 04/27/2017 KYLE YANG K Ot 786.50 CHEST PAIN NOS 04/27/2017 [place], BERTHA Daniels Ot 427.31 ATRIAL FIBRILLATION 04/27/2017 LUCIANO SALOMON INSPECTOR OPEN DIE Ot 244.9 HYPOTHYROIDISM NOS 04/27/2017 LUCIANO SALOMON INSPECTOR OPEN DIE Ot 787.20 DYSPHAGIA, UNSPECIFIED 04/27/2017 LUCIANO SALOMON INSPECTOR OPEN DIE Ot V76.12 OTH SCREEN MAMMO-MALIGN NEOPLASM OF [place] 04/27/2017 KYLE YANG Ot E78.2 MIXED HYPERLIPIDEMIA 04/27/2017 KYLE YANG Ot I10 ESSENTIAL (PRIMARY) HYPERTENSION 04/27/2017 KYLE YANG K Ot I25.10 ATHSCL HEART DISEASE OF [place] CORONARY 04/27/2017 KYLE YANG Ot I65.23 OCCLUSION AND STENOSIS OF BILATERAL [place] 04/27/2017 CURT ARAGON MD Ot E78.2 MIXED HYPERLIPIDEMIA 04/27/2017 CURT ARAGON MD Ot I10 ESSENTIAL (PRIMARY) HYPERTENSION 04/27/2017 CURT ARAGON MD Ot I25.10 ATHSCL HEART DISEASE OF [place] CORONARY 04/27/2017 CARTER BADILLO MD Ot M25.511 PAIN IN RIGHT SHOULDER 04/27/2017 CARTER BADILLO MD Ot M54.2 CERVICALGIA 04/27/2017 LUCIANO SALOMON Ot E04.1 NONTOXIC SINGLE THYROID NODULE 04/27/2017 MINO GARCIA MD Ot R13.10 DYSPHAGIA, UNSPECIFIED 04/27/2017 MINO GARCIA MD Ot Z01.818 ENCOUNTER FOR OTHER PREPROCEDURAL EXAMIN 04/27/2017 BERTHA DHALIWAL MD Ot Z51.81 ENCOUNTER FOR THERAPEUTIC DRUG LEVEL MON 04/27/2017 BERTHA DHALIWAL MD Ot Z79.899 OTHER INSPECTOR AND MENDER (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 THERAPY 04/27/2017 NOEL ZARAGOZA APRN Ot M54.9 DORSALGIA, UNSPECIFIED 04/27/2017 NOEL ZARAGOZA BAIT TIER Ot R07.9 CHEST PAIN, UNSPECIFIED 04/27/2017 NOEL ZARAGOZA APRN Ot R61 GENERALIZED HYPERHIDROSIS 04/27/2017 NOEL ZARAGOZA APRN Ot Z12.31 ENCNTR SCREEN MAMMOGRAM FOR MALIGNANT NE 04/27/2017 [place] DPM Ot 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 04/27/2017 KYLE YANG Ot 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, 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 04/27/2017 CARTER BADILLO MD Ot E04.2 NONTOXIC MULTINODULAR GOITER 04/27/2017 CARTER BADILLO MD Ot I25.10 ATHSCL HEART DISEASE OF [place] CORONARY 04/27/2017 CARTER BADILLO MD Ot I51.7 CARDIOMEGALY 04/27/2017 CARTER BADILLO MD, Ot 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, 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 04/27/2017 [place], CARTER Saldivar Ot K44.9 DIAPHRAGMATIC HERNIA WITHOUT OBSTRUCTION 04/27/2017 BERTHA DHALIWAL MD Ot J44.9 CHRONIC OBSTRUCTIVE PULMONARY DISEASE, U 04/27/2017 BERTHA DHALIWAL MD Ot K44.9 DIAPHRAGMATIC HERNIA WITHOUT OBSTRUCTION 04/27/2017 BERTHA DHALIWAL MD Ot Z51.81 ENCOUNTER FOR THERAPEUTIC DRUG LEVEL MON 04/27/2017 BERTHA DHALIWAL MD Ot Z79.899 OTHER JAIL (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 THERAPY 04/27/2017 MELY METCALF DO [...] 04/28/2017 BERTHA DHALIWAL MD Ot Z79.899 OTHER INSPECTOR AND MENDER (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 THERAPY 05/22/2017 BERTHA DHALIWAL MD Ot I51.7 CARDIOMEGALY 05/22/2017 BERTHA DHALIWAL MD Ot K44.9 DIAPHRAGMATIC HERNIA WITHOUT OBSTRUCTION 05/22/2017 BERTHA DHALIWAL MD Ot Z79.899 OTHER INSPECTOR AND MENDER (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 THERAPY 06/07/2017 BERTHA DHALIWAL MD Ot I51.7 CARDIOMEGALY 06/07/2017 BERTHA DHALIWAL MD Ot K44.9 DIAPHRAGMATIC HERNIA WITHOUT OBSTRUCTION 06/07/2017 BERTHA DHALIWAL MD Ot Z79.899 OTHER INSPECTOR AND MENDER (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 THERAPY 06/22/2017 Ot 793.80 UNSPEC ABNORMAL MAMMOGRAM 06/22/2017 Ot V72.84 EXAM PRE- OPERATIVE NOS 06/22/2017 [place], ARUNA Vale Ot 611.71 MASTODYNIA 06/22/2017 CURT ARAGON MD Ot 401.9 HYPERTENSION NOS 06/22/2017 CURT ARAGON MD Ot 414.00 CORON ATHEROSCLER NOS TYPE VESSEL, NATIV 06/22/2017 MARGO MD, BASHAR J Ot 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 OCCLUSION NOS W CEREBRAL IN 06/22/2017 [place], PJ Wells Ot 553.3 DIAPHRAGMATIC HERNIA 06/22/2017 [place], PJ Wells Ot 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, ACQUIRED 06/22/2017 [place]ATION, PJ I Ot 789.00 ABDOMINAL PAIN, UNSPECIFIED SITE 06/22/2017 [place], ARUNA Vale Ot V76.12 OTH SCREEN MAMMO-MALIGN NEOPLASM OF [place] 06/22/2017 KYLE YANG Ot 272.4 HYPERLIPIDEMIA NEC/NOS 06/22/2017 KYLE YANG K Ot 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 06/22/2017 KYLE YANG K Ot 397.0 TRICUSPID VALVE DISEASE 06/22/2017 AURA YANGTH K Ot 401.9 HYPERTENSION NOS 06/22/2017 KYLE YANG K Ot 414.00 CORON ATHEROSCLER NOS TYPE VESSEL, NATIV 06/22/2017 AURA YANGTH K Ot 429.3 CARDIOMEGALY 06/22/2017 AURA YANGTH K Ot 786.50 CHEST PAIN NOS 06/22/2017 KYLE YANG K Ot 272.4 HYPERLIPIDEMIA NEC/NOS 06/22/2017 AURA YANGTH K Ot 401.9 HYPERTENSION NOS 06/22/2017 KYLE YANG K Ot 414.00 CORON ATHEROSCLER NOS TYPE VESSEL, NATIV 06/22/2017 KLYE YANG K Ot 786.50 CHEST PAIN NOS 06/22/2017 [place], BERTHA Daniels Ot 427.31 ATRIAL FIBRILLATION 06/22/2017 LUCIANO SALOMON INSPECTOR OPEN DIE Ot 244.9 HYPOTHYROIDISM NOS 06/22/2017 LUCIANO SALOMON INSPECTOR OPEN DIE Ot 787.20 DYSPHAGIA, UNSPECIFIED 06/22/2017 LUCIANO SALOMONP Ot V76.12 OTH SCREEN MAMMO-MALIGN NEOPLASM OF [place] 06/22/2017 KYLE YANG K Ot E78.2 MIXED HYPERLIPIDEMIA 06/22/2017 AURA YANGTH K Ot I10 ESSENTIAL (PRIMARY) HYPERTENSION 06/22/2017 KYLE YANG Ot I25.10 ATHSCL HEART DISEASE OF [place] CORONARY 06/22/2017 KYLE YANG Ot I65.23 OCCLUSION AND STENOSIS OF [place] 06/22/2017 CURT ARAGON MD Ot E78.2 MIXED HYPERLIPIDEMIA 06/22/2017 CURT ARAGON MD Ot I10 ESSENTIAL (PRIMARY) HYPERTENSION 06/22/2017 CURT ARAGON MD Ot I25.10 ATHSCL HEART DISEASE OF [place] CORONARY 06/22/2017 CARTER BADILLO MD Ot M25.511 [...] 06/22/2017 BERTHA DHALIWAL MD Ot Z79.899 OTHER INSPECTOR AND MENDER (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 THERAPY 06/22/2017 NOEL ZARAGOZA APRN Ot M54.9 DORSALGIA, UNSPECIFIED 06/22/2017 NOEL ZARAGOZA BAIT TIER Ot R07.9 CHEST PAIN, UNSPECIFIED 06/22/2017 NOEL ZARAGOZA BAIT TIER Ot R61 GENERALIZED HYPERHIDROSIS 06/22/2017 NOEL ZARAGOZA APRN Ot Z12.31 ENCNTR SCREEN MAMMOGRAM FOR MALIGNANT NE 06/22/2017 STAN TUCKERM, SNOW Frias Ot 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 06/22/2017 KYLE YANG Ot 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, 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 06/22/2017 CARTRE BADILLO MD Ot E04.2 NONTOXIC MULTINODULAR GOITER 06/22/2017 CARTER BADILLO MD Ot I25.10 ATHSCL HEART DISEASE OF [place] CORONARY 06/22/2017 CARTER BADILLO MD Ot I51.7 CARDIOMEGALY 06/22/2017 CARTER BADILLO MD Ot 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, 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 06/22/2017 [place]Y [place]ATION, CARTER Saldivar Ot K44.9 DIAPHRAGMATIC HERNIA WITHOUT OBSTRUCTION 06/22/2017 BERTHA DHALIWAL MD Ot J44.9 CHRONIC OBSTRUCTIVE PULMONARY DISEASE, U 06/22/2017 BERTHA DHALIWAL MD Ot K44.9 DIAPHRAGMATIC HERNIA WITHOUT OBSTRUCTION 06/22/2017 BERTHA DHALIWAL MD Ot Z51.81 ENCOUNTER FOR THERAPEUTIC DRUG LEVEL MON 06/22/2017 BERTHA DHALIWAL MD Ot Z79.899 OTHER JAIL (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 THERAPY 06/22/2017 MELY METCALF DO Ot E66.9 OBESITY, UNSPECIFIED 06/22/2017 MELY METCALF DO Ot F03.90 UNSPECIFIED DEMENTIA WITHOUT BEHAVIORAL 06/22/2017 MELY METCALF DO Ot F41.9 ANXIETY DISORDER, UNSPECIFIED 06/22/2017 NOEL ZARAGOZA APRN Ot Z12.31 ENCNTR SCREEN MAMMOGRAM FOR MALIGNANT NE 06/22/2017 BERTHA DHALIWAL MD Ot I51.7 CARDIOMEGALY 06/22/2017 BERTHA DHALIWAL MD Ot K44.9 DIAPHRAGMATIC HERNIA WITHOUT OBSTRUCTION 06/22/2017 BERTHA DHALIWAL MD Ot Z79.899 OTHER JAIL (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 THERAPY 06/22/2017 CARTER BADILLO MD [...] I48.91 UNSPECIFIED ATRIAL FIBRILLATION 06/23/2017 CARTER BADILLO MD Ot I50.9 HEART FAILURE, UNSPECIFIED 06/23/2017 CARTER BADILLO MD, Ot J06.9 ACUTE UPPER RESPIRATORY INFECTION, UNSPE 06/23/2017 CARTER BADILLO MD, Ot J30.2 OTHER SEASONAL ALLERGIC RHINITIS 06/23/2017 CARTER BADILLO MD, Ot K21.9 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 06/23/2017 CARTER BADILLO MD Ot K44.9 DIAPHRAGMATIC HERNIA WITHOUT OBSTRUCTION 06/23/2017 CARTER BADILLO MD Ot M19.91 PRIMARY OSTEOARTHRITIS, UNSPECIFIED SITE 06/23/2017 CARTER BADILLO MD Ot R09.02 HYPOXEMIA 06/23/2017 CARTER BADILLO MD Ot Z66 DO NOT RESUSCITATE 06/23/2017 CARTER BADILLO MD Ot Z79.01 INSPECTOR AND MENDER (CURRENT) USE OF ANTICOAGULANT 06/23/2017 CARTER BADILLO [...] I50.9 HEART FAILURE, UNSPECIFIED 06/24/2017 CARTER BADILLO MD, Ot J06.9 ACUTE UPPER RESPIRATORY INFECTION, UNSPE 06/24/2017 CARTER BADILLO MD Ot J30.2 OTHER SEASONAL ALLERGIC RHINITIS 06/24/2017 CARTER BADILLO MD, Ot K21.9 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 06/24/2017 CARTER BADILLO MD Ot K44.9 DIAPHRAGMATIC HERNIA WITHOUT OBSTRUCTION 06/24/2017 CARTER BADILLO MD, Ot M19.91 PRIMARY OSTEOARTHRITIS, UNSPECIFIED SITE 06/24/2017 CARTER BADILLO MD Ot R09.02 HYPOXEMIA 06/24/2017 CARTER BADILLO MD Ot Z66 DO NOT RESUSCITATE 06/24/2017 CARTER BADILLO MD Ot Z79.01 JAIL (CURRENT) USE OF ANTICOAGULANT 06/24/2017 CARTER BADILLO MD Ot Z87.19 PERSONAL HISTORY OF OTHER DISEASES OF TH 06/24/2017 CARTER BADILLO MD, Ot Z87.442 PERSONAL HISTORY [...] OTHER SEASONAL ALLERGIC RHINITIS 06/25/2017 CARTER BADILLO MD, Ot K21.9 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 06/25/2017 CARTER BADILLO MD Ot K44.9 DIAPHRAGMATIC HERNIA WITHOUT OBSTRUCTION 06/25/2017 CARETR BADILLO MD Ot M19.91 PRIMARY OSTEOARTHRITIS, UNSPECIFIED SITE 06/25/2017 CARTER BADILLO MD Ot R09.02 HYPOXEMIA 06/25/2017 CARTER BADILLO MD Ot Z66 DO NOT RESUSCITATE 06/25/2017 CARTER BADILLO MD Ot Z79.01 INSPECTOR AND MENDER (CURRENT) USE OF ANTICOAGULANT 06/25/2017 CARTER BADILLO [...] RESUSCITATE 06/25/2017 CARTER BADILLO MD Ot Z79.01 JAIL (CURRENT) USE OF ANTICOAGULANT 06/25/2017 CARTER BADILLO [...] RESUSCITATE 06/26/2017 CARTER BADILLO MD Ot Z79.01 JAIL (CURRENT) USE OF ANTICOAGULANT 06/26/2017 CARTER BADILLO MD Ot Z87.19 PERSONAL HISTORY OF OTHER DISEASES OF TH 06/26/2017 CARTER BADILLO MD Ot Z87.442 PERSONAL HISTORY [...] RESUSCITATE 06/27/2017 CARTER BADILLO MD Ot Z79.01 INSPECTOR AND MENDER (CURRENT) USE OF ANTICOAGULANT 06/27/2017 CARTER BADILLO [...] RESUSCITATE 06/27/2017 CARTER BADILLO MD Ot Z79.01 INSPECTOR AND MENDER (CURRENT) USE OF ANTICOAGULANT 06/27/2017 CARTER BADILLO MD Ot Z87.19 PERSONAL HISTORY OF OTHER DISEASES OF TH 06/27/2017 CARTER BADILLO MD, Ot Z87.442 PERSONAL HISTORY OF URINARY CALCULI 06/27/2017 CARTER BADILLO MD Ot Z95.0 PRESENCE OF CARDIAC PACEMAKER 06/27/2017 CARTER BADILLO MD Ot Z99.81 DEPENDENCE ON SUPPLEMENTAL OXYGEN 09/17/2017 AIDA DUEÑAS MD, Ot E03.9 HYPOTHYROIDISM, UNSPECIFIED 09/17/2017 AIAD DUEÑAS MD, Ot E78.00 PURE HYPERCHOLESTEROLEMIA, UNSPECIFIED 09/17/2017 AIDA DUEÑAS MD Ot F03.90 UNSPECIFIED DEMENTIA WITHOUT BEHAVIORAL 09/17/2017 AIDA DUEÑAS MD Ot F32.9 MAJOR DEPRESSIVE DISORDER, SINGLE EPISOD 09/17/2017 AIDA DUEÑAS MD, Ot F41.9 ANXIETY DISORDER, UNSPECIFIED 09/17/2017 AIDA DUEÑAS MD, Ot I11.0 HYPERTENSIVE HEART DISEASE WITH HEART FA 09/17/2017 AIDA DUEÑAS MD Ot I48.91 UNSPECIFIED ATRIAL FIBRILLATION 09/17/2017 AIDA DUEÑAS MD, Ot I50.9 HEART FAILURE, UNSPECIFIED 09/17/2017 AIDA DUEÑAS MD Ot J40 BRONCHITIS, NOT SPECIFIED ACUTE OR CH 09/17/2017 AIDA DUEÑAS MD, Ot K21.9 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 09/17/2017 AIDA DUEÑAS MD Ot R09.81 NASAL CONGESTION 09/17/2017 AIDA DUEÑAS MD, Ot Z82.49 FAMILY HX OF [place] HEART DIS AND OTH DI 09/17/2017 AIDA DUEÑAS MD, Ot Z87.01 PERSONAL HISTORY OF PNEUMONIA (RECURRENT 09/17/2017 AIDA DUEÑAS MD, Ot Z87.442 PERSONAL HISTORY OF URINARY CALCULI 09/17/2017 AIDA DUEÑAS MD, Ot Z88.0 ALLERGY STATUS TO PENICILLIN 09/17/2017 AIDA DUEÑAS MD, Ot Z88.6 ALLERGY STATUS TO ANALGESIC AGENT STATUS 09/17/2017 AIDA DUEÑAS MD, Ot Z90.710 ACQUIRED ABSENCE OF BOTH CERVIX AND UTER 09/17/2017 AIDA DUEÑAS MD Ot Z95.0 PRESENCE OF CARDIAC PACEMAKER 09/20/2017 AIDA DUEÑAS MD Ot E03.9 HYPOTHYROIDISM, UNSPECIFIED 09/20/2017 AIDA DUEÑAS MD Ot E78.00 PURE HYPERCHOLESTEROLEMIA, UNSPECIFIED 09/20/2017 AIDA DUEÑAS MD Ot F03.90 UNSPECIFIED DEMENTIA WITHOUT BEHAVIORAL 09/20/2017 AIDA DUEÑAS MD Ot F32.9 MAJOR DEPRESSIVE DISORDER, SINGLE EPISOD 09/20/2017 AIDA DUEÑAS MD Ot F41.9 ANXIETY DISORDER, UNSPECIFIED 09/20/2017 AIDA DUEÑAS MD Ot I11.0 HYPERTENSIVE HEART DISEASE WITH HEART FA 09/20/2017 AIDA DUEÑAS MD Ot I48.91 UNSPECIFIED ATRIAL FIBRILLATION 09/20/2017 AIDA DUEÑAS MD, Ot I50.9 HEART FAILURE, UNSPECIFIED 09/20/2017 AIDA DUEÑAS MD Ot J40 BRONCHITIS, NOT SPECIFIED ACUTE OR CH 09/20/2017 AIDA DUEÑAS MD, Ot K21.9 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 09/20/2017 AIDA DUEÑAS MD Ot R09.81 NASAL CONGESTION 09/20/2017 AIDA DUEÑAS MD Ot Z82.49 FAMILY HX OF [place] HEART DIS AND OTH DI 09/20/2017 AIDA DUEÑAS MD, Ot Z87.01 PERSONAL HISTORY OF PNEUMONIA (RECURRENT 09/20/2017 AIDA DUEÑAS MD, Ot Z87.442 PERSONAL HISTORY OF URINARY CALCULI 09/20/2017 AIDA DUEÑAS MD Ot Z88.0 ALLERGY STATUS TO PENICILLIN 09/20/2017 AIDA DUEÑAS MD Ot Z88.6 ALLERGY STATUS TO ANALGESIC AGENT STATUS 09/20/2017 AIDA DUEÑAS MD Ot Z90.710 ACQUIRED ABSENCE OF BOTH CERVIX AND UTER 09/20/2017 AIAD DUEÑAS MD Ot Z95.0 PRESENCE OF CARDIAC PACEMAKER 10/27/2017 LACY CALDERÓN MD Ot E03.9 HYPOTHYROIDISM, UNSPECIFIED 10/27/2017 LACY CALDERÓN MD Ot E78.00 PURE HYPERCHOLESTEROLEMIA, UNSPECIFIED 10/27/2017 [place], LACY Evon Ot F03.90 UNSPECIFIED DEMENTIA WITHOUT BEHAVIORAL 10/27/2017 [place], LACY Barnard Ot F32.9 MAJOR DEPRESSIVE DISORDER, SINGLE EPISOD 10/27/2017 [place], LACY Evon Ot F41.9 ANXIETY DISORDER, UNSPECIFIED 10/27/2017 [place] N[place], LACY Evon Ot I11.0 HYPERTENSIVE HEART DISEASE WITH HEART FA 10/27/2017 [place] NATION, LACY Barnard Ot I48.91 UNSPECIFIED ATRIAL FIBRILLATION 10/27/2017 [place], LACY Barnard Ot I50.9 HEART FAILURE, UNSPECIFIED 10/27/2017 [place], LACY Barnard Ot K21.9 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 10/27/2017 [place] N[place], LACY Barnard Ot R07.89 OTHER CHEST PAIN 10/27/2017 [place], LACY Barnard Ot Z79.51 INSPECTOR AND MENDER (CURRENT) USE OF INHALED STERO 10/27/2017 [place], LACY Barnard Ot Z87.01 PERSONAL HISTORY OF PNEUMONIA (RECURRENT 10/27/2017 [place] N[place], LACY Evon Ot Z87.19 PERSONAL HISTORY OF OTHER DISEASES OF TH 10/27/2017 [place] N[place], LACY Barnard Ot Z87.442 PERSONAL HISTORY OF URINARY CALCULI 10/27/2017 [place], LACY Barnard Ot Z88.0 ALLERGY STATUS TO PENICILLIN 10/27/2017 [place] N[place], LACY Barnard Ot Z88.5 ALLERGY STATUS TO NARCOTIC AGENT STATUS 10/27/2017 [place] N[place], LACY Barnard Ot Z90.710 ACQUIRED ABSENCE OF BOTH CERVIX AND UTER 10/27/2017 [place], LACY Barnard Ot Z95.0 PRESENCE OF CARDIAC PACEMAKER 10/30/2017 [place] N[place], LACY Barnard Ot E03.9 HYPOTHYROIDISM, UNSPECIFIED 10/30/2017 [place] NATION, LACY Barnard Ot E78.00 PURE HYPERCHOLESTEROLEMIA, UNSPECIFIED 10/30/2017 [place] NATION, LACY Barnard Ot F03.90 UNSPECIFIED DEMENTIA WITHOUT BEHAVIORAL 10/30/2017 [place] N[place], LACY Barnard Ot F32.9 MAJOR DEPRESSIVE DISORDER, SINGLE EPISOD 10/30/2017 [place] NATION, LACY Barnard Ot F41.9 ANXIETY DISORDER, UNSPECIFIED 10/30/2017 [place] NATION, LACY Barnard Ot I11.0 HYPERTENSIVE HEART DISEASE WITH HEART FA 10/30/2017 [place] NATION, LACY Barnard Ot I48.91 UNSPECIFIED ATRIAL FIBRILLATION 10/30/2017 [place] NATION, LACY Barnard Ot I50.9 HEART FAILURE, UNSPECIFIED 10/30/2017 K[place] NATION, LACY Barnard Ot K21.9 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 10/30/2017 [place] NATION, LACY Barnard Ot R07.89 OTHER CHEST PAIN 10/30/2017 [place], LACY Barnard Ot Z79.51 JAIL (CURRENT) USE OF INHALED STERO 10/30/2017 [place] NATION, LACY Barnard Ot Z87.01 PERSONAL HISTORY OF PNEUMONIA (RECURRENT 10/30/2017 [place] NATION, LACY Barnard Ot Z87.19 PERSONAL HISTORY OF OTHER DISEASES OF TH 10/30/2017 KAIT[place] NATION, LACY Barnard Ot Z87.442 PERSONAL HISTORY OF URINARY CALCULI 10/30/2017 [place] NATION, LACY Barnard Ot Z88.0 ALLERGY STATUS TO PENICILLIN 10/30/2017 [place] NATION, LACY Barnard Ot Z88.5 ALLERGY STATUS TO NARCOTIC AGENT STATUS 10/30/2017 KA[place] NATION, LACY Evon Ot Z90.710 ACQUIRED ABSENCE OF BOTH CERVIX AND UTER 10/30/2017 [place] NATION, LACY Evon Ot Z95.0 PRESENCE OF CARDIAC PACEMAKER 11/03/2017 K[place] NATION, LACY Barnard Ot E03.9 HYPOTHYROIDISM, UNSPECIFIED 11/03/2017 [place] NATION, LACY Barnard Ot E78.00 PURE HYPERCHOLESTEROLEMIA, UNSPECIFIED 11/03/2017 KA[place] NATION, LACY Evon Ot F03.90 UNSPECIFIED DEMENTIA WITHOUT BEHAVIORAL 11/03/2017 [place] N[place], LACY Barnard Ot F32.9 MAJOR DEPRESSIVE DISORDER, SINGLE EPISOD 11/03/2017 K[place] NATION, LACY Barnard Ot F41.9 ANXIETY DISORDER, UNSPECIFIED 11/03/2017 [place] NATION, LACY Barnard Ot I11.0 HYPERTENSIVE HEART DISEASE WITH HEART FA 11/03/2017 KA[place] NATION, LACY Barnard Ot I48.91 UNSPECIFIED ATRIAL FIBRILLATION 11/03/2017 KA[place] NATION, LACY Barnard Ot I50.9 HEART FAILURE, UNSPECIFIED 11/03/2017 K[place] NATION, LACY Barnard Ot K21.9 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 11/03/2017 [place] NATION, LACY Barnard Ot R07.89 OTHER CHEST PAIN 11/03/2017 LACY CALDERÓN MD Ot Z79.51 INSPECTOR AND MENDER (CURRENT) USE OF INHALED STERO 11/03/2017 LACY CALDERÓN MD Ot Z87.01 PERSONAL HISTORY OF PNEUMONIA (RECURRENT 11/03/2017 LACY CALDERÓN MD Ot Z87.19 PERSONAL HISTORY OF OTHER DISEASES OF TH 11/03/2017 LACY CALDERÓN MD Ot Z87.442 PERSONAL HISTORY OF URINARY CALCULI 11/03/2017 LACY CALDERÓN MD Ot Z88.0 ALLERGY STATUS TO PENICILLIN 11/03/2017 LACY CALDERÓN MD Ot Z88.5 ALLERGY STATUS TO NARCOTIC AGENT STATUS 11/03/2017 LACY CALDERÓN MD Ot Z90.710 ACQUIRED ABSENCE OF BOTH CERVIX AND UTER 11/03/2017 LACY CALDERÓN MD Ot Z95.0 PRESENCE OF CARDIAC PACEMAKER Procedures Code Description Performed By Performed On [...] - 06/22/17 02:40 QUANTITY OF GROWTH . [facility] Bacterial blood culture SEE COMMEN [facility] Influenza virus A and B antigen detection - 06/22/17 03:00 FLU RESULT NEGATIVE FOR INFLUENZA A AND B ANTIGENS BY IA [facility] Blood lactic acid measurement (moles/volume) - 06/22/17 03:05 Blood lactic acid measurement (moles/volume) 1.13 mmol/L 0.50-2.00 Bacterial blood culture - 06/22/17 03:05 Bacterial blood culture [facility] Capillary blood glucose measurement by glucometer (mass/volume) [...] measurement by glucometer (mass/volume) 151 mg/dL 70-110 Complete blood count (CBC) with automated white blood cell (WBC) differential - 09/17/17 09:32 Blood leukocytes automated count (number/volume) 4.9 10*3/uL 4.3-11.0 Blood erythrocytes automated count (number/volume) 4.53 10*6/uL 4.35-5.85 Venous blood hemoglobin measurement (mass/volume) 13.0 g/dL 11.5-16.0 Blood hematocrit (volume fraction) 41 % 35-52 Automated erythrocyte mean corpuscular volume 90 [foz_us] 80-99 Automated erythrocyte mean corpuscular hemoglobin (mass per erythrocyte) 29 pg 25-34 Automated erythrocyte mean corpuscular hemoglobin concentration measurement ( mass/volume) 32 g/dL 32-36 Automated erythrocyte distribution width ratio 14.2 % 10.0-14.5 Automated blood platelet count (count/volume) 171 10*3/uL 130-400 Automated blood platelet mean volume measurement 9.9 [foz_us] 7.4-10.4 Automated blood neutrophils/100 leukocytes 71 % 42-75 Automated blood lymphocytes/100 leukocytes 20 % 12-44 Blood monocytes/100 leukocytes 8 % 0-12 Automated blood eosinophils/100 leukocytes 1 % 0-10 Automated blood basophils/100 leukocytes 0 % 0-10 Blood neutrophils automated count (number/volume) 3.5 10*3 1.8-7.8 Blood lymphocytes automated count (number/volume) 1.0 10*3 1.0-4.0 Blood monocytes automated count (number/volume) 0.4 10*3 0.0-1.0 Automated eosinophil count 0.1 10*3/uL 0.0-0.3 Automated blood basophil count (count/volume) 0.0 10*3/uL 0.0-0.1 Comprehensive metabolic panel - 09/17/17 09:32 Serum or plasma sodium measurement (moles/volume) 141 mmol/L 135-145 Serum or plasma potassium measurement (moles/volume) 3.8 mmol/L 3.6-5.0 Serum or plasma chloride measurement (moles/volume) 111 mmol/L 98-107 Carbon dioxide 20 mmol/L 21-32 Serum or plasma anion gap determination (moles/volume) 10 mmol/L 5-14 Serum or plasma urea nitrogen measurement (mass/volume) 23 mg/dL 7-18 Serum or plasma creatinine measurement (mass/volume) 1.02 mg/dL 0.60-1.30 Serum or plasma urea nitrogen/creatinine mass ratio 23 NRG Serum or plasma creatinine measurement with calculation of estimated glomerular filtration rate 52 NRG Serum or plasma glucose measurement (mass/volume) 163 mg/dL 70-105 Serum or plasma calcium measurement (mass/volume) 9.3 mg/dL 8.5-10.1 Serum or plasma total bilirubin measurement (mass/volume) 0.8 mg/dL 0.1-1.0 Serum or plasma alkaline phosphatase measurement (enzymatic activity/volume) 60 U/L 40-136 Serum or plasma aspartate aminotransferase measurement (enzymatic activity/ volume) 16 U/L 5-34 Serum or plasma alanine aminotransferase measurement (enzymatic activity/volume ) 16 U/L 0-55 Serum or plasma protein measurement (mass/volume) 6.7 g/dL 6.4-8.2 Serum or plasma albumin measurement (mass/volume) 3.9 g/dL 3.2-4.5 Serum or plasma troponin i.cardiac measurement (mass/volume) - 09/17/17 09:32 Serum or plasma troponin i.cardiac measurement (mass/volume) < ng/ mL <0.30 Serum or plasma lithium measurement (moles/volume) - 09/17/17 09:32 BNP level 117.6 pg/mL <100.0 Serum or plasma C reactive protein measurement (mass/volume) - 09/17/17 09:32 Serum or plasma C reactive protein measurement (mass/volume) 0.29 mg /dL 0.00-0.50 Complete blood count (CBC) with automated white blood cell (WBC) differential - 10/27/17 16:27 Blood leukocytes automated count (number/volume) 5.8 10*3/uL 4.3-11.0 Blood erythrocytes automated count (number/volume) 4.60 10*6/uL 4.35-5.85 Venous blood hemoglobin measurement (mass/volume) 13.1 g/dL 11.5-16.0 Blood hematocrit (volume fraction) 41 % 35-52 Automated erythrocyte mean corpuscular volume 89 [foz_us] 80-99 Automated erythrocyte mean corpuscular hemoglobin (mass per erythrocyte) 29 pg 25-34 Automated erythrocyte mean corpuscular hemoglobin concentration measurement ( mass/volume) 32 g/dL 32-36 Automated erythrocyte distribution width ratio 14.3 % 10.0-14.5 Automated blood platelet count (count/volume) 205 10*3/uL 130-400 Automated blood platelet mean volume measurement 10.0 [foz_us] 7.4-10.4 Automated blood neutrophils/100 leukocytes 64 % 42-75 Automated blood lymphocytes/100 leukocytes 25 % 12-44 Blood monocytes/100 leukocytes 8 % 0-12 Automated blood eosinophils/100 leukocytes 2 % 0-10 Automated blood basophils/100 leukocytes 1 % 0-10 Blood neutrophils automated count (number/volume) 3.7 10*3 1.8-7.8 Blood lymphocytes automated count (number/volume) 1.5 10*3 1.0-4.0 Blood monocytes automated count (number/volume) 0.5 10*3 0.0-1.0 Automated eosinophil count 0.1 10*3/uL 0.0-0.3 Automated blood basophil count (count/volume) 0.0 10*3/uL 0.0-0.1 Comprehensive metabolic panel - 10/27/17 16:27 Serum or plasma sodium measurement (moles/volume) 143 mmol/L 135-145 Serum or plasma potassium measurement (moles/volume) 4.3 mmol/L 3.6-5.0 Serum or plasma chloride measurement (moles/volume) 114 mmol/L 98-107 Carbon dioxide 20 mmol/L 21-32 Serum or plasma anion gap determination (moles/volume) 9 mmol/L 5-14 Serum or plasma urea nitrogen measurement (mass/volume) 24 mg/dL 7-18 Serum or plasma creatinine measurement (mass/volume) 1.07 mg/dL 0.60-1.30 Serum or plasma urea nitrogen/creatinine mass ratio 22 NRG Serum or plasma creatinine measurement with calculation of estimated glomerular filtration rate 49 NRG Serum or plasma glucose measurement (mass/volume) 128 mg/dL 70-105 Serum or plasma calcium measurement (mass/volume) 9.2 mg/dL 8.5-10.1 Serum or plasma total bilirubin measurement (mass/volume) 1.0 mg/dL 0.1-1.0 Serum or plasma alkaline phosphatase measurement (enzymatic activity/volume) 54 U/L 40-136 Serum or plasma aspartate aminotransferase measurement (enzymatic activity/ volume) 21 U/L 5-34 Serum or plasma alanine aminotransferase measurement (enzymatic activity/volume ) 21 U/L 0-55 Serum or plasma protein measurement (mass/volume) 6.7 g/dL 6.4-8.2 Serum or plasma albumin measurement (mass/volume) 4.1 g/dL 3.2-4.5 Erythrocyte sedimentation rate by westergren method - 10/27/17 16:27 Erythrocyte sedimentation rate by westergren method 11 mm 0-30 Serum or plasma troponin i.cardiac measurement (mass/volume) - 10/27/17 16:27 Serum or plasma troponin i.cardiac measurement (mass/volume) < ng/ mL <0.30 Encounters ACCT No. Visit Date/Time Discharge Status Pt. Type Provider Facility Loc./Unit Complaint [id number] 10/27/2017 16:10:00 10/27/2017 18:26:00 DIS Emergency KAITLYNN NATION, LACY S [facility] ER CHEST PAIN [id number] 09/17/2017 09:14:00 09/17/2017 11:39:00 DIS Emergency LEANA NATION, AIDA Ibarra [facility] ER COLD, CONGESTION IN CHEST [id number] 06/22/2017 03:30:00 06/27/2017 14:50:00 DIS Inpatient ABY NATION, CARTER Saldivra [facility] 4TH PNA-CAP,RESPIRATORY DISTRESS,HYPOXIA [id number] 04/27/2017 14:16:00 04/27/2017 23:59:59 CLS Outpatient MADHURI NATION, BERTHA Daniels [facility] RAD Z51.81, Z79.899 [id number] 03/09/2017 12:29:00 03/09/2017 23:59:59 CLS Outpatient NOEL ZARAGOZA APRN [facility] RAD SCREENING [id number] 12/28/2016 14:42:00 12/28/2016 23:59:59 CLS Outpatient TEA MELY DICK [facility] RT DEMENTIA F03.90, ANXIETY F41.9,OBESITY E66.9 [id number] 11/07/2016 14:16:00 12/06/2016 16:00:00 DIS Outpatient ANJELICA HUBBARD MD [facility] WOUNDCARE [id number] 09/16/2016 09:52:00 09/16/2016 23:59:59 CLS Outpatient BERTHA DHALIWAL MD [facility] RAD Z51.81,Z79.899 [id number] 08/21/2016 11:22:00 08/21/2016 11:54:00 DIS Emergency TAD BOSS [facility] ER WOUND CHECK [id number] 08/20/2016 19:20:00 08/20/2016 22:45:00 DIS Emergency TAD BOSS [facility] ER BLEEDING AT SURGICAL SITE [id number] 07/05/2016 09:17:00 07/05/2016 23:59:59 CLS Outpatient CARTER BADILLO MD [facility] RAD ABNORMAL CHEST XRAY, FOLLOW UP THYROID NODULES [id number] 07/05/2016 09:11:00 07/05/2016 23:59:59 CLS Outpatient KYLE YANG [facility] RAD AORTIC ANEURYSM, THORACIC [id number] 06/30/2016 07:34:00 06/30/2016 23:59:59 CLS Outpatient SNOW PIERCE DPM [facility] RAD LIPOMA RIGHT ANKLE [id number] 06/30/2016 10:00:00 06/30/2016 10:00:00 CAN Preadmit NOEL ZARAGOZA APRN [facility] RAD ABNORMAL CHEST XR [id number] 03/07/2016 14:51:00 03/07/2016 23:59:59 CLS Outpatient NOEL ZARAGOZA APRN [facility] RAD SCREENING [id number] 02/25/2016 13:37:00 02/25/2016 23:59:59 CLS Outpatient NOEL ZARAGOZA APRN [facility] CARD CHEST PAIN,BACK PAIN ,DIAPHORESIS [id number] 01/06/2016 20:56:00 01/07/2016 06:35:00 DIS Outpatient CARTER BADILLO MD [facility] SLEEP OBSERVED APNEAS, SNORING,NAYELI,HTN,DAYTIME SLEEPINESS [id number] 11/08/2015 08:47:00 11/08/2015 09:55:00 DIS Emergency FRANCISCO PABLO MD [facility] ER SORE THROAT,BILAT EAR PAIN [id number] 10/02/2015 12:45:00 10/02/2015 23:59:59 CLS Outpatient BERTHA DHALIWAL MD [facility] RAD ENCOUNTER FOR MONITORING AMIODARONE THERAPY [id number] 07/15/2015 10:25:00 07/15/2015 14:10:00 DIS Outpatient MINO GARCIA MD [facility] SDC DYSPHAGIA [id number] 07/13/2015 14:55:00 07/13/2015 23:59:59 CLS Outpatient MINO GARCIA MD [facility] PREOP DYSPHAGIA [id number] 06/30/2015 09:23:00 06/30/2015 23:59:59 CLS Outpatient LUCIANO SALOMON [facility] RAD THYROID NODULES [id number] 06/10/2015 07:33:00 06/10/2015 23:59:59 CLS Outpatient CURT ARAGON MD [facility] CARD CAD,CAROTID ARTERY STENOSIS,HTN,HYPERLIPIDEMIA [id number] 06/09/2015 07:46:00 06/09/2015 23:59:59 CLS Outpatient KYLE YANG [facility] CARD CAD,CAROTID ARTERY STENOSIS,HTN,HYPERLIPIDEMIA [id number] 05/12/2015 12:34:00 05/12/2015 23:59:59 CLS Outpatient CARTER BADILLO MD [facility] RAD NECK AND RIGHT SHOULDER PAIN, [id number] 05/06/2015 16:53:00 05/06/2015 19:22:00 DIS Emergency JAMES MOTTA DO [facility] ER HEADACHE,NAUSEA,WEAKNESS [id number] 02/18/2015 11:16:00 02/18/2015 23:59:59 CLS Outpatient LUCIANO SALOMON INSPECTOR OPEN DIE [facility] RAD SCREENING [id number] 12/22/2014 11:08:00 12/22/2014 23:59:59 CLS Outpatient LUCIANO SALOMON INSPECTOR OPEN DIE [facility] RAD HYPOTHYROIDISM [id number] 11/19/2014 06:46:00 11/19/2014 23:59:59 CLS Outpatient MADHURI NATION, BERTHA Daniels [facility] RT PAROXYSMAL ATRIAL FIBRILLATION [id number] 10/22/2014 16:19:00 10/22/2014 20:14:00 DIS Emergency LEANA NATION, AIDA Ibarra [facility] ER SOA [id number] 05/21/2014 07:00:00 05/22/2014 10:20:00 DIS Outpatient MARGO NATION, CURT Montes De Oca [facility] CATH ABNORMAL STRESS, CP,HTN, HLP [id number] 05/08/2014 10:24:00 05/08/2014 23:59:59 CLS Outpatient KYLE YANG [facility] CARD CAD,CP,HTN [id number] 05/05/2014 07:44:00 05/05/2014 23:59:59 CLS Outpatient KYLE YANG [facility] CARD CAD,CP,HTN [id number] 02/13/2014 13:07:00 02/13/2014 23:59:59 CLS Outpatient JULISA NATION, ARUNA Vale [facility] RAD SCREENING [id number] 11/25/2013 09:01:00 11/25/2013 10:21:00 DIS Emergency JAMES MOTTA DO [facility] ER CHEST/UPPER BACK PAIN [id number] 09/16/2013 08:15:00 09/16/2013 23:59:59 CLS Outpatient PJ ALMANZAR MD, I [facility] RAD ABD PAIN [id number] 07/08/2013 16:33:00 07/08/2013 23:59:59 CLS Outpatient CURT ARAGON MD [facility] RAD CAD,CVA [id number] 12/18/2012 11:15:00 12/21/2012 22:00:00 DIS Inpatient ARUNA EGAN MD [facility] CSD CHEST PAIN [id number] 12/10/2012 12:35:00 12/10/2012 23:59:59 CLS Outpatient ARUNA EGAN MD [facility] RAD L BREAST PAIN [id number] 11/18/2014 11:44:00 Document Registration [id number] 11/18/2014 11:43:00 Document Registration [id number] 11/18/2014 11:43:00 Document Registration [id number] 11/18/2014 11:43:00 Document Registration [id number] 11/18/2014 11:43:00 Document Registration [id number] 09/24/2012 06:47:00 Document Registration [id number] 05/07/2012 07:04:00 Document Registration [id number] 05/04/2012 08:10:00 Document Registration [id number] 03/13/2012 12:47:00 Document Registration [id number] 12/15/2011 09:11:00 Document Registration [id number] 10/11/2011 12:54:00 Document Registration [id number] 09/14/2011 18:15:00 Document Registration [id number] 09/07/2011 12:10:00 Document Registration [id number] 12/03/2010 08:32:00 Document Registration [id number] 11/23/2010 13:43:00 Document Registration [id number] 06/10/2010 06:19:00 Document Registration [id number] 11/25/2009 07:50:00 Document Registration [id number] 03/30/2017 09:31:49 03/30/2017 23:59:59 CLS Outpatient [id number] 02/18/2015 11:16:38 ACT Document Registration [id number] 12/01/2016 09:47:00 12/01/2016 23:59:00 DIS Outpatient CURT ARAGON
[2017-12-06 21:00] VITALS: BP 122/65
== END 2017-12-06 19:10 | disposition home or self-care (01) ==
LOC: EDUNIT# 17:02 → ER 17:04
DX: J44.1 Chronic obstructive pulmonary disease with (acute) exacerbation (principal); E78.00 Pure hypercholesterolemia, unspecified; I10 Essential (primary) hypertension; F03.90 Unspecified dementia, unspecified severity, without behavioral disturbance, psychotic disturbance, mood disturbance, and anxiety; I48.91 Unspecified atrial fibrillation; K21.9 Gastro-esophageal reflux disease without esophagitis; E03.9 Hypothyroidism, unspecified; F41.9 Anxiety disorder, unspecified; F32.9 Major depressive disorder, single episode, unspecified; Z87.01 Personal history of pneumonia (recurrent); Z90.710 Acquired absence of both cervix and uterus; Z95.0 Presence of cardiac pacemaker; Z87.442 Personal history of urinary calculi; Z82.49 Family history of ischemic heart disease and other diseases of the circulatory system; Z79.51 Long term (current) use of inhaled steroids; Z88.0 Allergy status to penicillin; Z88.6 Allergy status to analgesic agent; Z88.5 Allergy status to narcotic agent
CPT/HCPCS: 36415; 71046; 80053; 80162; 81000; 82962; 84484; 85025; 85610; 93005; 94640; 96360

== ENCOUNTER 2018-01-17 05:31 | Outpatient (CLI) | payer MEDICARE, OTHER, MEDICAID ==
[~2018-01-17] VITALS: Ht 167.6 cm; Wt 78.5 kg
[~2018-01-17 05:31] MED LIST changes: -AMIO200T2 PO; +AMIO200T4 PO; -IPRA3AMP INH; +IPRA3AMP31 INH; +PRD20T PO
[2018-01-17] MEDS ORDERED: ERYT-95 PO (14:52)
[2018-01-17] MEDS ORDERED: SUCR1TAB36 PO (14:52)
[2018-01-17] MEDS ORDERED: FLUT9.9S NS (14:57)
== END 2018-01-17 15:01 ==
LOC: PREOP 05:31
PROVIDERS: ATTEND Surgery
DX: Z01.818 Encounter for other preprocedural examination (principal); K21.9 Gastro-esophageal reflux disease without esophagitis; R13.10 Dysphagia, unspecified

== ENCOUNTER → 2018-01-31 | Outpatient (CLI) | payer MEDICARE, OTHER, MEDICAID ==
[~2018-01-31] MED LIST changes: +ERYT-95 PO; +FLUT9.9S NS; +SUCR1TAB36 PO
== END ==
LOC: CARD 13:54
PROVIDERS: ATTEND Internal Medicine Cardiovascular Disease
DX: I25.10 Atherosclerotic heart disease of native coronary artery without angina pectoris (principal); R07.9 Chest pain, unspecified; I10 Essential (primary) hypertension; E78.5 Hyperlipidemia, unspecified; I48.0 Paroxysmal atrial fibrillation; I08.2 Rheumatic disorders of both aortic and tricuspid valves
CPT/HCPCS: 93306

== ENCOUNTER 2018-02-16 10:52 | Emergency (ER) | payer MEDICARE, OTHER, MEDICAID ==
[~2018-02-16] VITALS: Ht 165.1 cm; Wt 74.8 kg
[~2018-02-16 10:52] MED LIST changes: +AMLO5TAB7 PO; -LOSA100T28 PO; +LOSA100T8 PO
--- OUTSIDE RECORDS SUMMARY | 2018-02-16 11:09 | XMS REPORT | Encounter Summary ---
Author Author [facility] Organization [facility] Address Unknown Phone Unavailable Care Team Providers Care Integrated Circuit Design Engineer Name Role Phone Dorian Muse MD Unavailable Ernesto Sosa MD [address] Monterroso MD Unavailable Unavailable Dana Birmingham RN Unavailable Unavailable Severiano Daniel DO Unavailable Yarely Vega MD PCP Encounter Details Date Type Department Care Team Description 01/19/2018 Telephone [facility] Cardiology Blanca Vincent RN [facility] [address] [place] [address] [address] [address] [place] [address] Social History Tobacco Use Types Packs/Day Years Used Date Never Smoker Smokeless Tobacco: Never Used Alcohol Use Drinks/Week oz/Week Comments No Sex Assigned at Date Recorded Not on file as of this encounter Miscellaneous Notes * Telephone Encounter - Blanca Vincent RN - 01/19/2018 2:58 PM CDT Spoke with patients daughter who tells me that her mom is now taking amlodipine 2.5 mg daily per PCP. Will update medication list. * Telephone Encounter - Blanca Vincent RN - 01/19/2018 2:55 PM CDT ----- Message from Aria Alcantar RN sent at 01/19/2018 12:49 PM CDT ----- Regarding: FW: MPE-Amio concerns ----- Message ----- From: Shalini Blake Sent: 01/19/2018 11:36 AM To: Олег Nurse Ep Subject: MPE-Amio concerns Dipika patient daughter calling about Amio concerns. [phone] is the call back. She will be free after 2:30 today. in this encounter Plan of Treatment Not on fileas of this encounter Visit Diagnoses Not on filein this encounter
--- OUTSIDE RECORDS SUMMARY | 2018-02-16 11:09 | XMS REPORT | Encounter Summary ---
Author Author [facility] Organization [facility] Address Unknown Phone Unavailable Care Team Providers Care Hazmat Cdl A Driver Name Role Phone Dorian Muse MD Unavailable Ernesto Sosa MD [address] MD Unavailable Unavailable Dana Birmingham RN Unavailable Unavailable Severiano Daniel DO Unavailable Yarely Vega MD PCP Reason for Visit * Reason Comments Records Request Via [phone] Encounter Details Date Type Department Care Team Description 11/28/2017 Documentation [facility] Card[facility] Shalini Blake Records Request (Via [address] [phone]) [place] [address] Social History Tobacco Use Types Packs/Day Years [...] Please send: Chest X-ray Please Fax to: [phone] Attention: Shalini Blake MA [facility] [address] [facility] [place] [address] in this encounter Plan of Treatment Not on fileas of this encounter Visit Diagnoses Not on filein this encounter
--- OUTSIDE RECORDS SUMMARY | 2018-02-16 11:09 | XMS REPORT | Encounter Summary ---
Author Author [facility] Organization [facility] Address Unknown Phone Unavailable Care Team Providers Care Fire Alarm Dispatcher Name Role Phone Dorian Muse MD Unavailable Ernesto Sosa MD [address] MD Unavailable Unavailable Dana Birmingham RN Unavailable Unavailable Severiano Daniel DO Unavailable Yarely Vega MD PCP Reason for Visit * Reason Comments Amiodarone Monitoring CXR due 05/06, labs due 06/05 Encounter Details Date Type Department Care Team Description 11/27/2017 Telephone [facility] Cardiology Leann Nguyen RN Amiodarone Monitoring ( [address] CXR due 05/06, [place] [id number] 06/05 ) [phone] Social History Tobacco Use Types Packs/Day Years [...] 11/23/2017 TSH3G 5.02 (H) 05/18/2017 03:14 PM [id number] 1.04 11/23/2017 Procedures Last chest X-Ray: 04/27/17 in this encounter Plan of Treatment Not on fileas of this encounter Visit Diagnoses Not on filein this encounter
--- OUTSIDE RECORDS SUMMARY | 2018-02-16 11:09 | XMS REPORT | Encounter Summary ---
Author Author [facility] Organization 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 [address] [place] [place] [address] Social History Tobacco Use Types [...] this encounter Results * LIPID PROFILE (11/23/2017) Cholesterol 179 OTHER OUTSIDE LAB Triglycerides 134 OTHER OUTSIDE LAB HDL 51 OTHER OUTSIDE LAB LDL 101 OTHER OUTSIDE LAB VLDL OTHER OUTSIDE LAB Non HDL Cholesterol OTHER OUTSIDE LAB Cholesterol/HDL Ratio 3.5 OTHER OUTSIDE LAB Specimen Blood - Blood Narrative Performed At Performing Organization Address City/State/Zipcode Phone Number OTHER OUTSIDE LAB * HEMOGLOBIN A1C (11/23/2017) Hemoglobin A1C 6.4 OTHER OUTSIDE LAB Specimen Blood - Blood Narrative Performed At Performing Organization Address City/State/Zipcode Phone Number OTHER OUTSIDE LAB * COMPREHENSIVE METABOLIC PANEL (11/23/2017) Sodium 142 OTHER OUTSIDE LAB Potassium 4.9 OTHER OUTSIDE LAB Chloride 112 (H) OTHER OUTSIDE LAB CO2 18 OTHER OUTSIDE LAB Blood Urea Nitrogen 24 OTHER OUTSIDE LAB Creatinine 1.0 OTHER OUTSIDE LAB Glucose 123 OTHER OUTSIDE LAB Calcium 9.4 OTHER OUTSIDE LAB Total Protein 6.2 OTHER OUTSIDE LAB Total Bilirubin 0.7 OTHER OUTSIDE LAB Albumin 3.8 OTHER OUTSIDE LAB Alk Phosphatase 56 OTHER OUTSIDE LAB AST (SGOT) 17 OTHER OUTSIDE LAB ALT (SGPT) 16 OTHER OUTSIDE LAB eGFR Non >59 OTHER OUTSIDE LAB eGFR OTHER OUTSIDE LAB Anion Gap OTHER OUTSIDE LAB Specimen Blood - Blood Narrative Performed At Performing Organization Address City/State/Zipcode Phone Number OTHER OUTSIDE LAB * THYROID STIMULATING HORMONE-TSH (11/23/2017) TSH 1.0 OTHER OUTSIDE LAB Specimen Blood - Blood Narrative Performed At Performing Organization Address City/State/Zipcode Phone Number OTHER OUTSIDE LAB * DIGOXIN LEVEL (11/23/2017) Digoxin 0.7 (L) OTHER OUTSIDE LAB Specimen Blood - Blood Narrative Performed At Performing Organization Address City/State/Zipcode Phone Number OTHER OUTSIDE LAB * FREE T4 (FREE THYROXINE) ONLY (11/23/2017) T4-Free 1.04 OTHER OUTSIDE LAB Specimen Blood - Blood Narrative Performed At Performing Organization Address City/State/Zipcode Phone Number OTHER OUTSIDE LAB in this encounter 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
--- OUTSIDE RECORDS SUMMARY | 2018-02-16 11:09 | XMS REPORT | Encounter Summary ---
Author Author [facility] Organization [facility] Address Unknown Phone Unavailable Care Team Providers Care Drilling Engineer Name Role Phone Dorian Muse MD Unavailable Ernesto Sosa MD [address] MD Unavailable Unavailable Dana Birmingham RN Unavailable Unavailable Severiano Daniel DO Unavailable Yarely Vega MD PCP Reason for Visit * Reason Comments Follow-up Phone Call Encounter Details Date Type Department Care Team Description 11/27/[address] [facility] Cardiology Blanca Vincent RN Follow-up Phone Call [employer] [address] [address] [place] [address] Social History Tobacco Use Types [...] me that patient had CXR at [facility] in [place], [place] about 5 weeks ago. Will request from them. Dipika is requesting CB once these are received. * Telephone Encounter - Blanca Vincent RN - 11/27/2017 3:55 PM CDT ----- Message from Annie Marie LPN sent at 11/27/2017 3:34 PM CDT ----- Regarding: MPE- testing question VM from daughter Dipika # [phone], on triage line. She has questions about Amiodarone testing. in this encounter Plan of Treatment Not on fileas of this encounter Visit Diagnoses Not on filein this encounter
--- OUTSIDE RECORDS SUMMARY | 2018-02-16 11:09 | XMS REPORT | Encounter Summary ---
Author Author [facility] Organization [facility] Address Unknown Phone Unavailable Care Team Providers Care Post Doctoral Researcher Name Role Phone Dorian Muse MD Unavailable Ernesto Sosa MD [address] MD Unavailable Unavailable Dana Birmingham RN Unavailable Unavailable Severiano Daniel DO Unavailable Yarely Vega MD PCP Reason for Visit * Reason Comments Amiodarone Monitoring next due 04/29/18 Encounter Details Date Type Department Care Team Description 11/30/2017 Documentation [facility] Sasha Chen, STEVEN Amiodarone Monitoring [place] [id number] (next due 04/29/18) [address] [place] [address] Social History Tobacco Use Types Packs/Day Years [...] 11/23/2017 TSH3G 5.02 (H) 05/18/2017 03:14 PM [id number] 1.04 11/23/2017 Procedures Last chest X-Ray: 10/27/17 in this encounter Plan of Treatment Not on fileas of this encounter Visit Diagnoses Not on filein this encounter
--- OUTSIDE RECORDS SUMMARY | 2018-02-16 11:09 | XMS REPORT | Clinical Summary ---
Author Author [facility] Organization [facility] Address Unknown Phone Unavailable Care Team Providers Care Shelf Filler Name Role Phone Dorian Muse MD Unavailable Ernesto Sosa MD [address] MD Unavailable Unavailable Dana Birmingham RN Unavailable Unavailable Severiano Daniel DO Unavailable Yarely Vega MD PCP Source Comments Some departments are not documenting in the electronic medical record. If you do not see the information that you expected, contact Release of Information in the Health Information Management department at [phone] for further assistance in locating additional records.[facility] Allergies Active Allergy Reactions Severity [...] every Active tablet 6 hours as needed. [place]-3 Acid Ethyl Esters Take 1 Cap by [...] hours. 14 amLODIPine (NORVASC) 5 mg Take 2.5 mg by mouth Active tablet daily. dabigatran (PRADAXA) 150 Take 150 mg by [...] syncope 09/16/2011 Overview: 09/14/11 hospital admission to [facility] in [place], [place]. Reveal device 9529 implanted by [employer] [...] Medical treatment, started Plavix. 09/14/11 Admitted to [facility] ( [facility]) with CP & palpitations. Stress test Lexiscan Myoview) showed no ischemia. EF 65% Echocardiogram: EF 70%. Mild LVH. La size 4.3cm. Mitral valve with myxomatous degeneration, mild MR. Palpitations 10/20/2011 Lower GI bleeding 10/18/2011 Encounters Date Type Specialty Care Team Description 01/19/2018 Telephone Cardiology Blanca Vincent RN 11/30/2017 Documentation Cardiology Sasha Chen RN Amiodarone Monitoring (next due 04/29/18) 11/28/2017 Documentation Cardiology [facility]alini Blake [phone] 11/27/2017 Telephone Cardiology Leann Nguyen RN Amiodarone Monitoring ( CXR due 05/06, labs due 06/05 ) 11/27/2017 Orders Only Cardiology Leann Nguyen RN retirement current use of amiodarone 11/27/2017 Telephone Cardiology Blanca Vincent RN Follow-up Phone Call 11/17/2017 Hospital Cardiology Ernesto Sosa MD Encounter from Last 3 Months Family History Medical [...] Taken Blood Pressure 110/78 05/18/2017 1:22 PM [facility]OR [facility] Pulse 77 05/18/2017 1:22 PM [facility]OR [facility] Temperature 36.5 C (97.7 F) 05/01/2013 11:23 AM DIRECTOR [facility] Respiratory Rate 18 03/07/2013 2:25 PM CDT Oxygen Saturation 98% 05/01/2013 11:23 AM DIRECTOR [facility] Inhaled Oxygen - - Concentration Weight 82 kg (180 lb 11.2 oz) 05/18/2017 1:22 PM [facility] Height 167.6 cm (5' 6") 05/18/2017 1:22 PM [facility]OR [facility] Body Mass Index 29.17 05/18/2017 1:22 PM [facility]OR [facility] Plan of Treatment Health Maintenance Due Date Last Done Comments PHYSICAL (COMPREHENSIVE) 1941 EXAM PERTUSSIS VACCINE 1945 TETANUS VACCINE 1951 SHINGLES RECOMBINANT 1984 VACCINE (1 of 2) OSTEOPOROSIS SCREENING 1999 PNEUMONIA (PCV13/PPSV23) 1999 VACCINES (1 of 2 - PCV13) INFLUENZA VACCINE 03/19/2018 03/22/2017, 03/29/2007, 04/28/2004 Results * DEVICE EVALUATION - REMOTE PPM (11/28/2017 2:20 PM) Generator Model # REVO MRI RVDR01 OTHER OUTSIDE LAB Generator Serial # [id number] OTHER OUTSIDE LAB Generator Implnat Date 10/18/2011 OTHER OUTSIDE LAB FÉLIX/EOL Indicator ADULT HEALTH CLINICAL NURSE SPECIALIST=2.81V OTHER OUTSIDE LAB Generator Keg Raiser Medtronic OTHER OUTSIDE LAB Generator Investigational No OTHER OUTSIDE LAB Wireless Generator No OTHER OUTSIDE LAB Device Type DDD-PM OTHER OUTSIDE LAB Atrial Lead Model # CAPSUREFIX MRI SURESCAN OTHER OUTSIDE LAB 5086-52cm Atrial Lead Serial # [id number] OTHER OUTSIDE LAB Atrial Lead Implant Date 10/18/2011 OTHER OUTSIDE LAB Atrial Lead Diaph. 10 OTHER OUTSIDE LAB Stimulation Atrial Lead Keg Raiser Medtronic OTHER OUTSIDE LAB Atrial Lead No OTHER OUTSIDE LAB Investigational Atrial Lead Fixation active fixation OTHER OUTSIDE LAB Atrial Lead Location right atrial appendage OTHER OUTSIDE LAB Atrial Lead Pin Connector IS1 OTHER OUTSIDE LAB Atrial Lead Polarity Bipolar OTHER OUTSIDE LAB RV Lead Model # CAPSUREFIX MRI SURESCAN OTHER OUTSIDE LAB 5086-58cm RV Lead Serial # [id number] OTHER OUTSIDE LAB RV Lead Implant Date 10/18/2011 OTHER OUTSIDE LAB RV Lead Diaph. 10 OTHER OUTSIDE LAB Stimulation RV Lead Keg Raiser Medtronic OTHER OUTSIDE LAB RV Lead Investigational No OTHER OUTSIDE LAB RV Lead Fixation active fixation OTHER OUTSIDE LAB RV Lead Location RV low septum OTHER OUTSIDE LAB RV Lead Pin Connector ICD IS1 OTHER OUTSIDE LAB Device Mode DDDR OTHER OUTSIDE LAB Lower Rate Limit 70 OTHER OUTSIDE LAB Upper Rate Limit 130 OTHER OUTSIDE LAB Sensor Rate Limit 130 OTHER OUTSIDE LAB Pace AV Delay 180 OTHER OUTSIDE LAB Sense AV Delay 150 OTHER OUTSIDE LAB VT Monitor 150 OTHER OUTSIDE LAB Mode Switch (bpm) >150 OTHER OUTSIDE LAB High V Rate Detect >150 OTHER OUTSIDE LAB Mode Switch Status On OTHER OUTSIDE LAB Device Implanted By Ernesto Sosa M.D. OTHER OUTSIDE LAB Pacemaker Dependant No OTHER OUTSIDE LAB Date of Last Programming 05/18/17 OTHER OUTSIDE LAB Next Programming Check 04/2018 OTHER OUTSIDE LAB Due Date of Last 05/18/17 OTHER OUTSIDE LAB Interrogation HF Patient No OTHER OUTSIDE LAB Date of Last Remote Check 11/16/17 OTHER OUTSIDE LAB Remote Monitoring? Yes OTHER OUTSIDE LAB EP Device Followed by Dr. Trejo OTHER OUTSIDE LAB Name EP Device Followed By JOSE OTHER OUTSIDE LAB Device [place] [facility] OTHER OUTSIDE LAB Transmitter Compatible On AntiCoag Date 10/10/16 OTHER OUTSIDE LAB Known Diagnosed AFib Yes OTHER OUTSIDE LAB On Anticoagulation Yes OTHER OUTSIDE LAB Generator MRI Conditional Yes OTHER OUTSIDE LAB Atrial Lead MRI Yes OTHER OUTSIDE LAB Conditional LV Lead MRI Conditional Yes OTHER OUTSIDE LAB Remote Check? Yes OTHER OUTSIDE LAB Narrative Performed At OTHER OUTSIDE LAB Current monitoring period 11/16/17-02/16/18 [11/28/2017 2:22:42 PM - JYOTI KUMAR] Please see scanned data sheets for further review. Scheduled [facility] transmission received 11/16/17 and reviewed today for Dual chamber PPM. Device function appears appropriate. Presenting EGM shows Ap-Water Control Supervisor 95bpm. Battery longevity 2.93v (FÉLIX is 2.31v) Events noted since 08/18/17: Atrial:175 treated AT/AF, 45.7% successful; 37 monitored.AT/AF burden 8.6%. Longest 11hr on 10/11/17.Last several on 11/15/17 and 1 on 11/16/17. EGMs confirm AFib/flutter.V rates >100bpm ~5-7%. Ventricular:none. Next follow up appt pending Nov with Dr. Trejo. Next remote scheduled for 3 mo. Results routed to Dr. Trejo for signature and review. _ Performing Organization Address City/State/[facility] Phone Number OTHER OUTSIDE LAB * THYROID STIMULATING HORMONE-TSH (11/23/2017) TSH 1.0 OTHER OUTSIDE LAB Specimen Blood - Blood Narrative Performed At Performing Organization Address City/[facility] Phone Number OTHER OUTSIDE LAB * FREE T4 (FREE THYROXINE) ONLY (11/23/2017) T4-Free 1.04 OTHER OUTSIDE LAB Specimen Blood - Blood Narrative Performed At Performing Organization Address City/[facility] Phone Number OTHER OUTSIDE LAB * HEMOGLOBIN A1C (11/23/2017) Hemoglobin A1C 6.4 OTHER OUTSIDE LAB Specimen Blood - Blood Narrative Performed At Performing Organization Address City/[facility] Phone Number OTHER OUTSIDE LAB * DIGOXIN LEVEL (11/23/2017) Digoxin 0.7 (L) OTHER OUTSIDE LAB Specimen Blood - Blood Narrative Performed At Performing Organization Address City/State/[facility] Phone Number OTHER OUTSIDE LAB * LIPID PROFILE (11/23/2017) Cholesterol 179 OTHER OUTSIDE LAB Triglycerides 134 OTHER OUTSIDE LAB HDL 51 OTHER OUTSIDE LAB LDL 101 OTHER OUTSIDE LAB VLDL OTHER OUTSIDE LAB Non HDL Cholesterol OTHER OUTSIDE LAB Cholesterol/HDL Ratio 3.5 OTHER OUTSIDE LAB Specimen Blood - Blood Narrative Performed At Performing Organization Address City/State/[facility] Phone Number OTHER OUTSIDE LAB * COMPREHENSIVE [...] Address City/State/Zipcode Phone Number OTHER OUTSIDE LAB from Last 3 Months
--- OUTSIDE RECORDS SUMMARY | 2018-02-16 11:10 | XMS REPORT | Encounter Summary ---
Author Author [facility] Organization [facility] Address Unknown Phone Unavailable Care Team Providers Care Cut Off Tender Glass Name Role Phone Dorian Muse MD Unavailable Ernesto Sosa MD [address] MD Unavailable Unavailable Dana Birmingham RN Unavailable Unavailable Severiano Daniel DO Unavailable Yarely Vega MD PCP Encounter Details Date Type Department Care Team Description 11/17/2017 [facility] Ernesto Sosa MD Encounter Remote Device Check [address] [facility] [phone] [address] [place] [address] [phone] Social History Tobacco Use Types Packs/Day Years [...] with food. amLODIPine (NORVASC) 5 mg Take 2.5 mg by mouth tablet daily. BUSPIRONE HCL (BUSPAR PO) Take [...] mouth twice (LOPRESSOR) 25 mg tablet daily. [place]-3 Acid Ethyl Esters Take 1 Cap by [...] RVDR01 OTHER OUTSIDE LAB Generator Serial # [id number] OTHER OUTSIDE LAB Generator Implnat Date 10/18/2011 OTHER OUTSIDE LAB FÉLIX/EOL Indicator METAL FABRICATING SUPERVISOR=2.81V OTHER OUTSIDE LAB Generator Machine Try Out Setter Medtronic OTHER OUTSIDE LAB Generator Investigational No OTHER OUTSIDE LAB Wireless Generator No OTHER OUTSIDE LAB Device Type DDD-PM OTHER OUTSIDE LAB Atrial Lead Model # CAPSUREFIX MRI SURESCAN OTHER OUTSIDE LAB 5086-52cm Atrial Lead Serial # [id number] OTHER OUTSIDE LAB Atrial Lead Implant Date 10/18/2011 OTHER OUTSIDE LAB Atrial Lead Diaph. 10 OTHER OUTSIDE LAB Stimulation Atrial Lead Machine Try Out Setter Medtronic OTHER OUTSIDE LAB Atrial Lead No OTHER OUTSIDE LAB Investigational Atrial Lead Fixation active fixation OTHER OUTSIDE LAB Atrial Lead Location right atrial appendage OTHER OUTSIDE LAB Atrial Lead Pin Connector IS1 OTHER OUTSIDE LAB Atrial Lead Polarity Bipolar OTHER OUTSIDE LAB RV Lead Model # CAPSUREFIX MRI SURESCAN OTHER OUTSIDE LAB 5086-58cm RV Lead Serial # [id number] OTHER OUTSIDE LAB RV Lead Implant Date 10/18/2011 OTHER OUTSIDE LAB RV Lead Diaph. 10 OTHER OUTSIDE LAB Stimulation RV Lead Machine Try Out Setter Medtronic OTHER OUTSIDE LAB RV Lead Investigational [...] Followed By JOSE OTHER OUTSIDE LAB Device [place] [facility] OTHER OUTSIDE LAB Transmitter Compatible [...] Device function appears appropriate. Presenting EGM shows Ap-Mobile Architect 95bpm. Battery longevity 2.93v (FÉLIX is 2.31v) [...] signature and review. _ Performing Organization Address City/State/Zipcode Phone Number OTHER OUTSIDE LAB in this encounter Visit Diagnoses Diagnosis Cardiac pacemaker in situ Paroxysmal atrial fibrillation (HCC) Atrial fibrillation
--- OUTSIDE RECORDS SUMMARY | 2018-02-16 11:15 | XMS REPORT | CCD ---
Author Author [facility]ega Organization [facility] Address [address] [place] [address] Phone Care Team Providers Care Infrastructure Software Engineer Name Role Phone PP Unavailable CCM Unavailable Summary Purpose Interface Exchange Insurance Providers Payer name Policy type / Coverage type Covered republican ID Effective Begin Date Effective End Date WPS Medicare Part B Medicare Part B [id number] Unknown Principal Life Insurance Medicare Part B [id number] Unknown Family history Brother Diagnosis Age At Onset Heart Attack Unknown Mother Diagnosis Age At Onset Hypertension Unknown kidney disease Unknown Stroke Unknown Father Diagnosis Age At Onset Arthritis Unknown Social History Social History Element Codes Description Effective Dates Employment Unknown Retired worked at [employer] 2017 Marital status Unknown Single 12/16/[address]: 4981651 Former smoker 12/16/[address]: 284239853 Never drinks alcohol 12/16/2014 Allergies, Adverse Reactions, Alerts Substance Reaction Codes Entered Date Inactivated Date Status CODEINE RxNorm: 2670 05/25/2016 No Inactive Date Active ciprofloxacin RxNorm: 53456 12/16/2014 No Inactive Date Active MORPHINE SULFATE RxNorm: 7052 12/16/2014 No Inactive Date Active Penicillin Unknown 11/10/2015 No Inactive Date Active Past Medical History Illness Codes Condition Status Onset Date Resolved Date 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 Active 06/05/2017 Unknown 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-9: 281.0 ICD-10: D51.0 Active 05/25/2017 Unknown Cough ICD-9: 786.2 ICD-10: R05 Active 07/06/2017 Unknown Nausea ICD-9: 787.02 ICD-10: R11.0 Active 05/18/2015 Unknown Acute bronchitis due to Hemophilus influenzae ICD-9: 466.0 ICD-10: J20.1 Active 12/04/2017 Unknown Chronic atrial fibrillation ICD-9: 427.31 ICD-10: I48.2 Active 12/15/2014 Unknown Essential (primary) hypertension ICD-9: 401.9 ICD-10: I10 Active 12/15/2014 Unknown Acute upper respiratory infection, unspecified ICD-9: 465.9 ICD-10: J06.9 Active 09/15/2017 Unknown Laceration without foreign body of right forearm, initial encounter ICD-9: 881.00 ICD-10: S51.811A Active 09/07/2017 Unknown Encounter for therapeutic drug level monitoring ICD-9: V58.83 ICD-10: Z51.81 Active 08/30/2017 Unknown Other allergic rhinitis ICD-9: 477.8 ICD-10: J30.89 Active 11/10/2015 Unknown Atrophy of thyroid (acquired) ICD-9: 244.8 ICD-10: E03.4 Active 01/23/2017 Unknown Candidiasis of skin and nail ICD-9: 112.3 ICD-10: B37.2 Active 07/06/2017 Unknown Laceration without foreign body of left forearm, initial encounter ICD-9: 881.00 ICD-10: S51.812A Active 07/06/2017 Unknown Slow transit constipation ICD-9: 564.01 ICD-10: K59.01 Active 07/06/2017 Unknown Acute laryngopharyngitis ICD-9: 465.0 ICD-10: J06.0 Active 06/20/2017 Unknown 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 Active 07/04/2016 Unknown Encounter for general adult medical examination with abnormal findings ICD-9: V70.0 ICD-10: Z00.01 Active 06/05/2017 Unknown Vitamin B12 deficiency anemia, unspecified ICD-9: [...] 9: 702.0 ICD-10: L57.0 Active 05/18/2015 Unknown Cervicalgia ICD-9: 723.1 ICD-10: [...] Problems Condition Codes Effective Dates Condition Status 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 06/05/2017 Active 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-9: 281.0 ICD-10: D51.0 05/25/2017 Active Cough ICD-9: 786.2 ICD-10: R05 07/06/2017 Active Nausea ICD-9: 787.02 ICD-10: R11.0 05/18/2015 Active Acute bronchitis due to Hemophilus influenzae ICD-9: 466.0 ICD-10: J20.1 12/04/2017 Active Chronic atrial fibrillation ICD-9: 427.31 ICD-10: I48.2 12/15/2014 Active Essential (primary) hypertension ICD-9: 401.9 ICD-10: I10 12/15/2014 Active Acute upper respiratory infection, unspecified ICD-9: 465.9 ICD-10: J06.9 09/15/2017 Active Laceration without foreign body of right forearm, initial encounter ICD-9: 881.00 ICD-10: S51.811A 09/07/2017 Active Encounter for therapeutic drug level monitoring ICD-9: V58.83 ICD-10: Z51.81 08/30/2017 Active Other allergic rhinitis ICD-9: 477.8 ICD-10: J30.89 11/10/2015 Active Atrophy of thyroid (acquired) ICD-9: 244.8 ICD-10: E03.4 01/23/2017 Active Candidiasis of skin and nail ICD-9: 112.3 ICD-10: B37.2 07/06/2017 Active Laceration without foreign body of left forearm, initial encounter ICD-9: 881.00 ICD-10: S51.812A 07/06/2017 Active Slow transit constipation ICD-9: 564.01 ICD-10: K59.01 07/06/2017 Active Acute laryngopharyngitis ICD-9: 465.0 ICD-10: J06.0 06/20/2017 Active 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 07/04/2016 Active Encounter for general adult medical examination with abnormal findings ICD-9: V70.0 ICD-10: Z00.01 06/05/2017 Active Vitamin B12 deficiency anemia, unspecified ICD-9: [...] ICD- 9: 702.0 ICD-10: L57.0 05/18/2015 Active Cervicalgia ICD-9: 723.1 ICD-10: M54.2 [...] Start Date Stop Date Status Fill Instructions cyanocobalamin (vit B-12) 1,000 mcg/mL injection solution RxNorm: 562790 Milliliter(s) Inj 02/08/2018 02/08/2018 Inactive albuterol sulfate 2.5 mg/3 mL (0.083 %) solution for nebulization RxNorm: 032067 3 Milliliter(s) INH Q6 PRN 01/24/2018 No Stop Date Active cyanocobalamin (vit B-12) 1,000 mcg/mL injection solution RxNorm: 838062 Milliliter(s) Inj 01/24/2018 01/24/2018 Inactive Claritin 10 mg tablet RxNorm: 046112 1 Tablet(s) PO daily 201705/14/2018 Active cyanocobalamin (vit B-12) 1,000 mcg/mL injection solution RxNorm: 837333 Milliliter(s) Inj 01/10/2018 01/10/2018 Inactive hydrocodone 5 mg-acetaminophen 325 mg tablet RxNorm: 247897 1-2 Tablet(s) PO Q6 as needed for pain 01/09/2018 02/07/2018 Inactive cyanocobalamin (vit B-12) 1,000 mcg/mL injection solution RxNorm: 930214 Milliliter(s) Inj 12/27/2017 12/27/2017 Inactive cyanocobalamin (vit B-12) 1,000 mcg/mL injection solution RxNorm: 382005 1 Milliliter(s) Inj 12/12/2017 12/12/2017 Inactive Zofran ODT 4 mg disintegrating tablet RxNorm: 085094 1 Tablet(s) PO TID as needed 12/08/2017 12/09/2017 Inactive hydrocodone 2.5 mg-guaifenesin 200 mg/5 mL oral solution RxNorm: 976558 5 Milliliter(s) PO 12/04/2017 No Stop Date Active doxycycline hyclate 100 mg capsule RxNorm: 9284317 1 Capsule(s) PO BID 12/04/2017 12/13/2017 Inactive cyanocobalamin (vit B-12) 1,000 mcg/mL injection solution RxNorm: 187425 Milliliter(s) Inj 12/01/2017 12/01/2017 Inactive Flonase Allergy Relief 50 mcg/actuation nasal spray, suspension RxNorm: 6627945 1 [employer] NASAL BID 11/20/20172017 Active cyanocobalamin (vit B-12) 1,000 mcg/mL injection solution RxNorm: 763273 1 Milliliter(s) Inj 11/17/2017 11/17/2017 Inactive hydrocodone 5 mg-acetaminophen 325 mg tablet RxNorm: 284366 1-2 Tablet(s) PO Q6 as needed for pain 11/16/2017 12/15/2017 Inactive cyanocobalamin (vit B-12) 1,000 mcg/mL injection solution RxNorm: 553437 1 Milliliter(s) Inj 11/02/2017 11/02/2017 Inactive hydrocodone 5 mg-acetaminophen 325 mg tablet RxNorm: 316385 1-2 Tablet(s) PO Q6 as needed for pain 10/25/2017 11/15/2017 Inactive Claritin 10 mg tablet RxNorm: 862367 1 Tablet(s) PO daily 201711/19/2017 Inactive albuterol sulfate 2.5 mg/3 mL (0.083 %) solution for nebulization RxNorm: 359834 3 Milliliter(s) INH Q6 PRN 10/25/2017 01/23/2018 Inactive Claritin 10 mg tablet RxNorm: 036802 1 Tablet(s) PO daily 201710/24/2017 Inactive cyanocobalamin (vit B-12) 1,000 mcg/mL injection solution RxNorm: 504808 1 Milliliter(s) Inj 10/20/2017 10/20/2017 Inactive Zoloft 50 mg tablet RxNorm: 213522 TAKE 1 TABLET BY MOUTH ONCE DAILY 10/13/2017 04/10/2018 Active Generic For:ZOLOFT 50MG 10/13/2017 8:59:44 AM cyanocobalamin (vit B-12) 1,000 mcg/mL injection solution RxNorm: 750948 Milliliter(s) Inj 10/06/2017 10/06/2017 Inactive liothyronine 5 mcg tablet RxNorm: 808781 TAKE 1 TABLET BY MOUTH TWICE DAILY 10/03/2017 03/31/2018 Active Generic For:CYTOMEL 5MCG 10/03/2017 9:13:38 AM cyanocobalamin (vit B-12) 1,000 mcg/mL injection solution RxNorm: 581622 Milliliter(s) Inj 09/21/2017 09/21/2017 Inactive albuterol sulfate 2.5 mg/3 mL (0.083 %) solution for nebulization RxNorm: 740436 3 Milliliter(s) INH Q6 PRN 09/21/2017 10/24/2017 Inactive hydrocodone 5 mg-acetaminophen 325 mg tablet RxNorm: 149463 1-2 Tablet(s) PO Q6 as needed for pain 09/21/2017 10/20/2017 Inactive Kenalog 40 mg/mL suspension for injection RxNorm: 9019641 Milliliter(s) Inj 09/15/2017 09/15/2017 Inactive Keflex 500 mg capsule RxNorm: 128732 1 Capsule(s) PO TID 201709/16/2017 Inactive Please deliver to patient cyanocobalamin (vit B-12) 1,000 mcg/mL injection solution RxNorm: 646983 Milliliter(s) Inj 09/07/2017 09/07/2017 Inactive alprazolam 0.25 mg tablet RxNorm: 626866 1 Tablet(s) PO BID 2018 Active Aricept 10 mg tablet RxNorm: 311051 1 Tablet(s) PO daily 201708/31/2018 Active hydrocodone 5 mg-acetaminophen 325 mg tablet RxNorm: 590190 1-2 Tablet(s) PO Q6 as needed for pain 08/24/2017 09/20/2017 Inactive cyanocobalamin (vit B-12) 1,000 mcg/mL injection solution RxNorm: 109967 Milliliter(s) Inj 08/24/2017 08/24/2017 Inactive Norvasc 5 mg tablet RxNorm: 013158 1 Tablet(s) PO daily 201708/12/2018 Active nystatin 100,000 unit/gram topical powder RxNorm: 349174 1 Gram(s) TOP QID 08/17/2017 08/26/2017 Inactive hydrocodone 5 mg-acetaminophen 325 mg tablet RxNorm: 124892 1-2 Tablet(s) PO Q6 as needed for pain 07/25/2017 08/23/2017 Inactive Tamiflu 75 mg capsule RxNorm: 572861 1 Capsule(s) PO BID 201712/11/2017 Inactive nystatin 100,000 unit/gram topical powder RxNorm: 564764 1 Gram(s) TOP QID 07/14/2017 07/22/2017 Inactive levothyroxine 125 mcg tablet RxNorm: 796627 Tablet(s) 1 Tablet(s) PO daily 07/10/2017 01/05/2018 Inactive nystatin 100,000 unit/gram topical powder RxNorm: 402786 1 Gram(s) TOP QID 07/06/2017 07/13/2017 Inactive cyanocobalamin (vit B-12) 1,000 mcg/mL injection solution RxNorm: 085569 Milliliter(s) Inj 07/06/2017 07/06/2017 Inactive Kenalog 40 mg/mL suspension for injection RxNorm: 6076489 1 Milliliter(s) Inj 06/20/2017 06/20/2017 Inactive doxycycline hyclate 100 mg capsule RxNorm: 8544979 1 Capsule(s) PO BID 06/20/2017 06/26/2017 Inactive cyanocobalamin (vit B-12) 1,000 mcg/mL injection solution RxNorm: 505596 Milliliter(s) Inj 06/20/2017 06/20/2017 Inactive Mobic 15 mg tablet RxNorm: 281890 1 Tablet(s) PO daily 201606/08/2018 Active Keflex 500 mg capsule RxNorm: 931342 1 Capsule(s) PO TID 201606/23/2017 Inactive Please deliver to patient cyanocobalamin (vit B-12) 1,000 mcg/mL injection solution RxNorm: 613829 Milliliter(s) Inj 06/05/2017 06/05/2017 Inactive buspirone 15 mg tablet RxNorm: 494221 TAKE 1 TABLET BY MOUTH TWICE DAILY 05/31/2017 05/25/2018 Active Generic For:BUSPAR 15MG 05/31/2017 9:19:20 AM cyanocobalamin (vit B-12) 1,000 mcg/mL injection solution RxNorm: 291623 Milliliter(s) Inj 05/25/2017 05/25/2017 Inactive hydrocodone 5 mg-acetaminophen 325 mg tablet RxNorm: 282445 1-2 Tablet(s) PO Q6 as needed for pain 05/25/2017 06/23/2017 Inactive amiodarone 200 mg tablet RxNorm: 503459 1/2 Tablet(s) PO daily 05/22/2017 No Stop Date Active cardiology decreased to 100mg daily cyanocobalamin (vit B-12) 1,000 mcg/mL injection solution RxNorm: 241854 Milliliter(s) Inj 05/16/2017 05/16/2017 Inactive Zofran ODT 4 mg disintegrating tablet RxNorm: 903988 1 Tablet(s) PO TID as needed 05/03/2017 05/04/2017 Inactive hydrocodone 5 mg-acetaminophen 325 mg tablet RxNorm: 094032 1-2 Tablet(s) PO Q6 as needed for pain 05/01/2017 05/05/2017 Inactive cyanocobalamin (vit B-12) 1,000 mcg/mL injection solution RxNorm: 088070 1 Milliliter(s) Inj 05/01/2017 05/01/2017 Inactive cyanocobalamin (vit B-12) 1,000 mcg/mL injection solution RxNorm: 652618 INJECT ONE 1 ML EVERY TWO WEEKS 04/26/20172018 Active 04/26/2017 9:08:52 AM Zoloft 50 mg tablet RxNorm: 102022 Tablet(s) TAKE 1 TABLET BY MOUTH DAILY 04/25/2017 10/12/2017 Inactive Generic For:ZOLOFT 50MG cyanocobalamin (vit B-12) 1,000 mcg/mL injection solution RxNorm: 504585 Milliliter(s) Inj 04/18/2017 04/18/2017 Inactive liothyronine 5 mcg tablet RxNorm: 395890 1 Tablet(s) PO BID 10/02/2017 Inactive cyanocobalamin (vit B-12) 1,000 mcg/mL injection solution RxNorm: 445696 Milliliter(s) Inj 04/06/2017 04/06/2017 Inactive hydrocodone 5 mg-acetaminophen 325 mg tablet RxNorm: 681049 1-2 Tablet(s) PO Q6 as needed for pain 04/06/2017 04/10/2017 Inactive cyanocobalamin (vit B-12) 1,000 mcg/mL injection solution RxNorm: 218481 Milliliter(s) Inj 03/22/2017 03/22/2017 Inactive alprazolam 0.25 mg tablet RxNorm: 395881 1 Tablet(s) PO BID 12/11/2017 Inactive alprazolam 0.25 mg tablet RxNorm: 376089 1 Tablet(s) PO BID 09/05/2017 Inactive hydrocodone 5 mg-acetaminophen 325 mg tablet RxNorm: 533632 1-2 Tablet(s) PO Q6 as needed for pain 03/09/2017 03/13/2017 Inactive cyanocobalamin (vit B-12) 1,000 mcg/mL injection solution RxNorm: 562756 Milliliter(s) Inj 03/09/2017 03/09/2017 Inactive cyanocobalamin (vit B-12) 1,000 mcg/mL injection solution RxNorm: 361654 Milliliter(s) Inj 02/23/2017 02/23/2017 Inactive cyanocobalamin (vit B-12) 1,000 mcg/mL injection solution RxNorm: 896809 Milliliter(s) Inj 02/09/2017 02/09/2017 Inactive hydrocodone 5 mg-acetaminophen 325 mg tablet RxNorm: 079598 1-2 Tablet(s) PO Q6 as needed for pain 02/08/2017 02/12/2017 Inactive Topamax 25 mg tablet RxNorm: 638850 1 Tablet(s) PO BID 201605/22/2017 Inactive Generic For:TOPAMAX 25MG 12/06/2016 9:15:13 AM cyanocobalamin (vit B-12) 1,000 mcg/mL injection solution RxNorm: 807307 Milliliter(s) Inj 01/23/2017 01/23/2017 Inactive cyanocobalamin (vit B-12) 1,000 mcg/mL injection solution RxNorm: 206722 Milliliter(s) Inj 01/10/2017 01/10/2017 Inactive hydrocodone 5 mg-acetaminophen 325 mg tablet RxNorm: 793387 1-2 Tablet(s) PO Q6 as needed for pain 01/09/2017 01/13/2017 Inactive cyanocobalamin (vit B-12) 1,000 mcg/mL injection solution RxNorm: 544413 1 Milliliter(s) Inj 12/28/2016 12/28/2016 Inactive cyanocobalamin (vit B-12) 1,000 mcg/mL injection solution RxNorm: 308005 Milliliter(s) Inj 12/14/2016 12/14/2016 Inactive buspirone 15 mg tablet RxNorm: 401482 1 Tablet(s) PO BID 201605/30/2017 Inactive hydrocodone 5 mg-acetaminophen 325 mg tablet RxNorm: 958639 1-2 Tablet(s) PO Q6 as needed for pain 12/08/2016 12/12/2016 Inactive Topamax 25 mg tablet RxNorm: 453567 TAKE 1 TABLET BY MOUTH EVERY DAY AT BEDTIME 12/06/2016 01/22/2017 Inactive Generic For:TOPAMAX 25MG 12/06/2016 9:15:13 AM Lac-Hydrin Five 5 % lotion RxNorm: 231091 1 Gram(s) TOP daily 12/02/2016 01/30/2017 Inactive cyanocobalamin (vit B-12) 1,000 mcg/mL injection solution RxNorm: 948188 Milliliter(s) Inj 11/24/2016 11/24/2016 Inactive Ceftin 500 mg tablet RxNorm: 774255 1 Tablet(s) PO BID 201606/13/2017 Inactive Cipro 500 mg tablet RxNorm: 613706 1 Tablet(s) PO BID 201611/10/2016 Inactive Cipro 500 mg tablet RxNorm: 698572 1 Tablet(s) PO BID 201611/11/2016 Inactive cyanocobalamin (vit B-12) 1,000 mcg/mL injection solution RxNorm: 212479 1 Milliliter(s) Inj 11/07/2016 11/07/2016 Inactive hydrocodone 5 mg-acetaminophen 325 mg tablet RxNorm: 772753 1-2 Tablet(s) PO Q6 as needed for pain 11/02/2016 11/06/2016 Inactive cyanocobalamin (vit B-12) 1,000 mcg/mL injection solution RxNorm: 919549 Milliliter(s) Inj 10/24/2016 10/24/2016 Inactive levothyroxine 125 mcg tablet RxNorm: 627387 Tablet(s) 1 Tablet(s) PO daily 10/24/2016 04/21/2017 Inactive liothyronine 5 mcg tablet RxNorm: 988866 1 Tablet(s) PO BID 01/201704/12/2017 Inactive hydrocodone 5 mg-acetaminophen 325 mg tablet RxNorm: 212038 1-2 Tablet(s) PO Q6 as needed for pain 10/17/2016 10/21/2016 Inactive Keflex 500 mg capsule RxNorm: 137922 1 Capsule(s) PO TID 201610/06/2016 Inactive Keflex 500 mg capsule RxNorm: 625632 1 Capsule(s) PO TID 201610/16/2016 Inactive Please deliver to patient cyanocobalamin (vit B-12) 1,000 mcg/mL injection solution RxNorm: 193582 1 Milliliter(s) Inj 09/29/2016 09/29/2016 Inactive alprazolam 0.25 mg tablet RxNorm: 268429 1 Tablet(s) PO BID 09/201603/16/2017 Inactive Cozaar 100 mg tablet RxNorm: 640242 1 Tablet(s) PO daily 2016 No Stop Date Active metoprolol tartrate 50 mg tablet RxNorm: 181052 1/2 Tablet(s) PO BID 09/14/2016 12/12/2016 Inactive Zoloft 50 mg tablet RxNorm: 645196 Tablet(s) TAKE 1 TABLET BY MOUTH DAILY 09/14/2016 03/12/2017 Inactive Generic For:ZOLOFT 50MG liothyronine 5 mcg tablet RxNorm: 046680 1 Tablet(s) PO BID 10/23/2016 Inactive Calmoseptine 0.44 %-20.6 % topical ointment RxNorm: 596221 1 Application TOP BID and as needed to sore on buttocks 09/07/2016 No Stop Date Active cyanocobalamin (vit B-12) 1,000 mcg/mL injection solution RxNorm: 861688 Milliliter(s) Inj 08/29/2016 08/29/2016 Inactive hydrocodone 5 mg-acetaminophen 325 mg tablet RxNorm: 744952 1-2 Tablet(s) PO Q6 as needed for pain 08/29/2016 10/16/2016 Inactive levothyroxine 125 mcg tablet RxNorm: 237539 1 Tablet(s) PO daily 08/25/2016 10/23/2016 Inactive Topamax 25 mg tablet RxNorm: 628168 TAKE 1 TABLET BY MOUTH EVERY DAY AT BEDTIME 08/17/2016 12/05/2016 Inactive Generic For:TOPAMAX 25MG 08/17/2016 2:14:37 PM hydrocodone 5 mg-acetaminophen 325 mg tablet RxNorm: 038650 1-2 Tablet(s) PO Q6 as needed for pain 08/11/2016 08/28/2016 Inactive hydrocodone 5 mg-acetaminophen 325 mg tablet RxNorm: 664956 1 -2 Tablet(s) PO Q6 as needed for pain 08/11/2016 08/18/2016 Inactive hydrocodone 5 mg-acetaminophen 325 mg tablet RxNorm: 224558 1 Tablet(s) PO Q6 as needed for pain 08/05/2016 08/10/2016 Inactive cyanocobalamin (vit B-12) 1,000 mcg/mL injection solution RxNorm: 533417 Milliliter(s) Inj 08/04/2016 08/04/2016 Inactive Norvasc 10 mg tablet RxNorm: 344248 1 Tablet(s) PO daily 201607/20/2017 Inactive alprazolam 0.25 mg tablet RxNorm: 893487 1 Tablet(s) PO QHS 07/201609/19/2016 Inactive Norvasc 5 mg tablet RxNorm: 091148 1 Tablet(s) PO daily 201607/25/2016 Inactive levothyroxine 125 mcg tablet RxNorm: 644341 1 Tablet(s) PO daily 07/21/2016 12/11/2017 Inactive cyanocobalamin (vit B-12) 1,000 mcg/mL injection solution RxNorm: 802364 Milliliter(s) Inj 07/21/2016 07/21/2016 Inactive Zoloft 50 mg tablet RxNorm: 527092 Tablet(s) TAKE 1 TABLET BY MOUTH DAILY 07/21/2016 09/13/2016 Inactive Generic For:ZOLOFT 50MG cyanocobalamin (vit B-12) 1,000 mcg/mL injection solution RxNorm: 458259 1 Milliliter(s) Inj 07/05/2016 07/05/2016 Inactive cyanocobalamin (vit B-12) 1,000 mcg/mL injection solution RxNorm: 847657 1 Milliliter(s) Inj 06/22/2016 06/22/2016 Inactive cyanocobalamin (vit B-12) 1,000 mcg/mL injection solution RxNorm: 428759 Milliliter(s) Inj 06/09/2016 06/09/2016 Inactive Aricept 10 mg tablet RxNorm: 831506 1 Tablet(s) PO daily 201505/21/2017 Inactive Mobic 15 mg tablet RxNorm: 497663 1 Tablet(s) PO daily 201505/21/2017 Inactive levothyroxine 125 mcg tablet RxNorm: 648151 1 Tablet(s) PO daily 05/25/2016 07/20/2016 Inactive cyanocobalamin (vit B-12) 1,000 mcg/mL injection solution RxNorm: 740761 1 Milliliter(s) Inj 05/25/2016 05/25/2016 Inactive doxycycline hyclate 100 mg capsule RxNorm: 4361479 1 Capsule(s) PO BID 05/16/2016 05/15/2016 Inactive doxycycline hyclate 100 mg capsule RxNorm: 6833118 1 Capsule(s) PO BID 05/16/2016 05/22/2016 Inactive cyanocobalamin (vit B-12) 1,000 mcg/mL injection solution RxNorm: 470503 Milliliter(s) Inj 05/10/2016 05/10/2016 Inactive cyanocobalamin (vit B-12) 1,000 mcg/mL injection solution RxNorm: 951634 Milliliter(s) Inj 04/26/2016 04/26/2016 Inactive Topamax 25 mg tablet RxNorm: 618344 1 Tablet(s) PO QPM 201508/16/2016 Inactive cyanocobalamin (vit B-12) 1,000 mcg/mL injection solution RxNorm: 484222 Milliliter(s) 1 Milliliter(s) Inj D2qsyxy 04/11/2016 12/31/2017 Inactive liothyronine 5 mcg tablet RxNorm: 113491 1 Tablet(s) PO BID 09/13/2016 Inactive cyanocobalamin (vit B-12) 1,000 mcg/mL injection solution RxNorm: 953478 Milliliter(s) Inj 04/11/2016 04/11/2016 Inactive cyanocobalamin (vit B-12) 1,000 mcg/mL injection solution RxNorm: 130926 Milliliter(s) Inj 03/31/2016 03/31/2016 Inactive cyanocobalamin (vit B-12) 1,000 mcg/mL injection solution RxNorm: 476106 1 Milliliter(s) Inj 03/15/2016 03/15/2016 Inactive levothyroxine 125 mcg tablet RxNorm: 234092 1 Tablet(s) PO daily 2016 03/03/2016 Inactive levothyroxine 125 mcg tablet RxNorm: 494402 1 Tablet(s) PO daily 2016 05/24/2016 Inactive cyanocobalamin (vit B-12) 1,000 mcg/mL injection solution RxNorm: 410604 Milliliter(s) Inj 02/25/2016 02/25/2016 Inactive cyanocobalamin (vit B-12) 1,000 mcg/mL injection solution RxNorm: 382544 1 Milliliter(s) Inj 02/02/2016 02/02/2016 Inactive sucralfate 1 gram tablet RxNorm: 873444 1 Tablet(s) PO QHS 01/2016 No Stop Date Active amiodarone 200 mg tablet RxNorm: 695708 1/2 Tablet(s) PO BID 05/21/2017 Inactive cyanocobalamin (vit B-12) 1,000 mcg/mL injection solution RxNorm: 182859 Milliliter(s) Inj 01/18/2016 01/18/2016 Inactive cyanocobalamin (vit B-12) 1,000 mcg/mL injection solution RxNorm: 861408 Milliliter(s) Inj 12/29/2015 12/29/2015 Inactive Topamax 25 mg tablet RxNorm: 799515 1 Tablet(s) PO QPM 201504/05/2016 Inactive cyanocobalamin (vit B-12) 1,000 mcg/mL injection solution RxNorm: 341051 Milliliter(s) Inj 12/08/2015 12/08/2015 Inactive Bactrim DS 800 mg-160 mg tablet RxNorm: 600211 1 Tablet(s) PO BID 11/23/2015 11/22/2015 Inactive cyanocobalamin (vit B-12) 1,000 mcg/mL injection solution RxNorm: 238983 Milliliter(s) Inj 11/23/2015 11/23/2015 Inactive Bactrim DS 800 mg-160 mg tablet RxNorm: 882573 1 Tablet(s) PO BID 11/23/2015 11/29/2015 Inactive cyanocobalamin (vit B-12) 1,000 mcg/mL injection solution RxNorm: 683108 Milliliter(s) Inj 11/11/2015 11/11/2015 Inactive amoxicillin 500 mg capsule RxNorm: 281290 1 Capsule(s) PO TID 11/10/2015 11/19/2015 Inactive Zithromax Z-Henrique 250 mg tablet RxNorm: 552225 1 Tablet(s) PO UD 11/10/2015 01/24/2016 Inactive zpack x 1 amoxicillin 500 mg capsule RxNorm: 928587 1 Capsule(s) PO TID 11/10/2015 11/09/2015 Inactive cyanocobalamin (vit B-12) 1,000 mcg/mL injection solution RxNorm: 768581 1 Milliliter(s) Inj 10/29/2015 10/29/2015 Inactive [place] 3 capsule RxNorm : 1 Capsule(s) PO QAM , 2 Capsules at noon, 1 Capsule QHS 10/13/2015 No Stop Date Active potassium chloride ER 20 mEq tablet,extended release RxNorm: 055660 2 Tablet(s) PO daily at noon 10/13/2015 No Stop Date Active alprazolam 0.25 mg tablet RxNorm: 349749 1 Tablet(s) PO QHS 07/20/2016 Inactive amiodarone 200 mg tablet RxNorm: 537063 1 Tablet(s) PO BID 01/24/2016 Inactive cyanocobalamin (vit B-12) 1,000 mcg/mL injection solution RxNorm: 002571 1 Milliliter(s) Inj 10/12/2015 10/12/2015 Inactive Zofran 4 mg tablet RxNorm: 817941 1 Tablet(s) PO daily as needed 10/07/2015 05/24/2016 Inactive Zoloft 50 mg tablet RxNorm: 982529 TAKE 1 TABLET BY MOUTH DAILY 10/05/2015 05/01/2016 Inactive Generic For:ZOLOFT 50MG cyanocobalamin (vit B-12) 1,000 mcg/mL injection solution RxNorm: 580498 1 Milliliter(s) Inj 09/29/2015 09/29/2015 Inactive cyanocobalamin (vit B-12) 1,000 mcg/mL injection solution RxNorm: 929602 1 Milliliter(s) Inj 09/17/2015 09/17/2015 Inactive Norvasc 5 mg tablet RxNorm: 175316 1 Tablet(s) PO daily 201507/20/2016 Inactive liothyronine 5 mcg tablet RxNorm: 321303 1 Tablet(s) PO BID 03/14/2016 Inactive Zoloft 50 mg tablet RxNorm: 165203 1 Tablet(s) PO daily 201510/04/2015 Inactive buspirone 15 mg tablet RxNorm: 651077 1 Tablet(s) PO BID 201509/10/2016 Inactive buspirone 15 mg tablet RxNorm: 515541 1 Tablet(s) PO BID 201509/16/2015 Inactive Topamax 25 mg tablet RxNorm: 400862 1 Tablet(s) PO QPM 201512/07/2015 Inactive cyanocobalamin (vit B-12) 1,000 mcg/mL injection solution RxNorm: 135648 1 Milliliter(s) Inj 09/03/2015 09/03/2015 Inactive cyanocobalamin (vit B-12) 1,000 mcg/mL injection solution RxNorm: 887133 Milliliter(s) Inj 08/17/2015 08/17/2015 Inactive cyanocobalamin (vit B-12) 1,000 mcg/mL injection solution RxNorm: 238429 Milliliter(s) Inj 08/06/2015 08/06/2015 Inactive levothyroxine 150 mcg tablet RxNorm: 249018 1 Tablet(s) PO daily 07/22/2015 03/03/2016 Inactive Aricept 10 mg tablet RxNorm: 637205 1 Tablet(s) PO daily 201505/26/2016 Inactive Mobic 15 mg tablet RxNorm: 758474 1 Tablet(s) PO daily 201505/26/2016 Inactive cyanocobalamin (vit B-12) 1,000 mcg/mL injection solution RxNorm: 158126 Milliliter(s) Inj 07/22/2015 07/22/2015 Inactive liothyronine 5 mcg tablet RxNorm: 052927 1 Tablet(s) PO BID 08/201509/16/2015 Inactive cyanocobalamin (vit B-12) 1,000 mcg/mL injection solution RxNorm: 581867 Milliliter(s) Inj 07/08/2015 07/08/2015 Inactive cyanocobalamin (vit B-12) 1,000 mcg/mL injection solution RxNorm: 509227 Milliliter(s) Inj 06/23/2015 06/23/2015 Inactive cyanocobalamin (vit B-12) 1,000 mcg/mL injection solution RxNorm: 289531 1 Milliliter(s) Inj 06/08/2015 06/08/2015 Inactive cyanocobalamin (vit B-12) 1,000 mcg/mL injection solution RxNorm: 477814 Milliliter(s) Inj 05/27/2015 05/27/2015 Inactive Aricept 10 mg tablet RxNorm: 764152 1 Tablet(s) PO daily 201407/21/2015 Inactive Zofran 4 mg tablet RxNorm: 815873 1 Tablet(s) PO daily as needed 05/20/2015 06/18/2015 Inactive alprazolam 0.25 mg tablet RxNorm: 770276 1 Tablet(s) PO BID 07/201410/12/2015 Inactive Mobic 15 mg tablet RxNorm: 539584 1 Tablet(s) PO daily 201407/21/2015 Inactive tramadol ER 100 mg tablet,extended release 24 hr RxNorm: 700624 1 Tablet(s) PO Q6 as needed 05/13/2015 No Stop Date Active cyanocobalamin (vit B-12) 1,000 mcg/mL injection solution RxNorm: 544042 1 Milliliter(s) Inj 05/12/2015 05/12/2015 Inactive Topamax 25 mg tablet RxNorm: 950046 1 Tablet(s) PO BID (start at one pill at bedtime x 1week then twice daily thereafter) 05/12/2015 09/02/2015 Inactive cyanocobalamin (vit B-12) 1,000 mcg/mL injection kit RxNorm: 413754 kit Inj 04/30/2015 04/30/2015 Inactive cyanocobalamin (vit B-12) 1,000 mcg/mL injection solution RxNorm: 359196 Milliliter(s) Inj 04/16/2015 04/16/2015 Inactive levothyroxine 150 mcg tablet RxNorm: 381676 1 Tablet(s) PO daily 04/08/2015 07/21/2015 Inactive cyanocobalamin (vit B-12) 1,000 mcg/mL injection solution RxNorm: 427578 Milliliter(s) 1 Milliliter(s) Inj [id number] 04/08/2015 04/10/2016 Inactive Cytomel 5 mcg tablet RxNorm: 337192 1 Tablet(s) PO BID 201410/12/2015 Inactive Cytomel 5 mcg tablet RxNorm: 248835 1 Tablet(s) PO BID 201404/07/2015 Inactive Cytomel 5 mcg tablet RxNorm: 223035 1 Tablet(s) PO BID 201404/06/2015 Inactive cyanocobalamin (vit B-12) 1,000 mcg/mL injection solution RxNorm: 065415 Milliliter(s) Inj 04/02/2015 04/02/2015 Inactive cyanocobalamin (vit B-12) 1,000 mcg/mL injection solution RxNorm: 717496 Milliliter(s) Inj 03/18/2015 03/18/2015 Inactive cyanocobalamin (vit B-12) 1,000 mcg/mL injection solution RxNorm: 036290 Milliliter(s) 1 Milliliter(s) Inj U3jisbe 03/18/2015 04/07/2015 Inactive cyanocobalamin (vit B-12) 1,000 mcg/mL injection solution RxNorm: 292931 1 Milliliter(s) Inj O1fjkxx 03/16/201503/17 Inactive cyanocobalamin (vit B-12) 1,000 mcg/mL injection solution RxNorm: 072282 Milliliter(s) Inj 03/03/2015 03/03/2015 Inactive cyanocobalamin (vit B-12) 1,000 mcg/mL injection solution RxNorm: 919716 Milliliter(s) Inj 02/18/2015 02/18/2015 Inactive cyanocobalamin (vit B-12) 1,000 mcg/mL injection solution RxNorm: 446017 Milliliter(s) Inj 02/04/2015 02/04/2015 Inactive cyanocobalamin (vit B-12) 1,000 mcg/mL injection solution RxNorm: 028664 Milliliter(s) Inj 01/22/2015 01/22/2015 Inactive Lac-Hydrin Five 5 % lotion RxNorm: 295595 1 TOP daily 201403/13/2015 Inactive Lac-Hydrin Five 5 % lotion RxNorm: 019626 1 TOP daily 201401/12/2015 Inactive cyanocobalamin (vit B-12) 1,000 mcg/mL injection solution RxNorm: 635764 Milliliter(s) Inj 01/08/2015 01/08/2015 Inactive cyanocobalamin (vit B-12) 1,000 mcg/mL injection solution RxNorm: 595904 Milliliter(s) Inj 12/25/2014 12/25/2014 Inactive levothyroxine 150 mcg tablet RxNorm: 873541 1 Tablet(s) PO daily 12/24/2014 04/07/2015 Inactive tramadol 50 mg tablet RxNorm: 761647 1-2 Tablet(s) PO Q6 as needed 12/17/2014 05/12/2015 Inactive alprazolam 0.25 mg tablet RxNorm: 038389 1 Tablet(s) PO BID 06/201404/15/2015 Inactive Pradaxa 150 mg capsule RxNorm: 5495655 1 Capsule(s) PO BID No Stop Date Active metoprolol tartrate 50 mg tablet RxNorm: 906973 1/2 Tablet(s) PO BID 12/16/2014 09/13/2016 Inactive buspirone 15 mg tablet RxNorm: 592425 1 Tablet(s) PO BID 201409/13/2015 Inactive cyanocobalamin (vit B-12) 1,000 mcg/mL injection solution RxNorm: 897407 1 Milliliter(s) Inj B3fswns 12/16/201403/15 Inactive cyanocobalamin (vit B-12) 1,000 mcg/mL injection solution RxNorm: 781533 1 Milliliter(s) Inj E9lmgfs 12/16/201412/15 Inactive sucralfate 1 gram tablet RxNorm: 489285 Tablet(s) PO QID 201412/10/2015 Inactive cyanocobalamin (vit B-12) 1,000 mcg/mL injection solution RxNorm: 151238 Milliliter(s) Inj 12/10/2014 12/10/2014 Inactive cyanocobalamin (vit B-12) 1,000 mcg/mL injection solution RxNorm: 644641 Milliliter(s) Inj 11/26/2014 11/26/2014 Inactive Zoloft 50 mg tablet RxNorm: 441377 1 Tablet(s) PO daily 201406/21/2015 Inactive Zoloft 50 mg tablet RxNorm: 306652 1 Tablet(s) PO daily 201411/23/2014 Inactive cyanocobalamin (vit B-12) 1,000 mcg/mL injection kit RxNorm: 122573 Milliliter(s) Inj 11/12/2014 11/12/2014 Inactive cyanocobalamin (vit B-12) 1,000 mcg/mL injection solution RxNorm: 872946 Milliliter(s) Inj 10/28/2014 10/28/2014 Inactive [SAVINGS FOR NON-COVERED DRUGS -- BIN:[id number], PCN: [id number], Group: [id number], ID# [id number], Questions: [phone]. THIS IS NOT INSURANCE.] promethazine oral RxNorm: 8745 oral No Start Date Active digoxin 125 mcg tablet RxNorm: 214962 Tablet(s) PO every other day No Start Date Active furosemide 40 mg tablet RxNorm: 750131 1 Tablet(s) PO daily No Start Date Active Vitamin D3 5,000 unit tablet RxNorm: 524463 1 Tablet(s) PO daily No Start Date Active erythromycin 250 mg capsule,delayed release RxNorm: 519923 1 Capsule(s) PO AC No Start Date Active Protonix 40 mg tablet,delayed release RxNorm: 955753 1 Tablet(s) PO BID No Start Date Active Cozaar 100 mg tablet RxNorm: 479660 1 Tablet(s) PO daily No Start Date 09/13/2016 Inactive sucralfate 1 gram tablet RxNorm: 995798 Tablet(s) PO QID No Start Date 12/15/2014 Inactive amiodarone 200 mg tablet RxNorm: 968433 2 Tablet(s) PO daily No Start Date 10/13/2015 Inactive buspirone 15 mg tablet RxNorm: 375313 1 Tablet(s) PO daily No Start Date 12/15/2014 Inactive potassium chloride ER 20 mEq tablet,extended release RxNorm: 028305 1 Tablet(s) PO daily No Start Date 10/12/2015 Inactive Prilosec 40 mg capsule,delayed release RxNorm: 467961 1 Capsule(s) PO daily No Start Date 09/02/2015 Inactive [place] 3 capsule RxNorm : Capsule(s) PO No Start Date 10/12/2015 Inactive alprazolam 0.25 mg tablet RxNorm: 669708 Tablet(s) PO QHS No Start Date 12/16/2014 Inactive levothyroxine 125 mcg tablet RxNorm: 097691 1 Tablet(s) PO daily No Start Date 12/23/2014 Inactive liothyronine 5 mcg tablet RxNorm: 280441 1 Tablet(s) PO BID No Start Date 07/21/2015 Inactive Mobic 15 mg tablet RxNorm: 709797 Tablet(s) PO daily No Start Date 05/19/2015 Inactive Norvasc 5 mg tablet RxNorm: 369414 1 Tablet(s) PO daily No Start Date 09/16/2015 Inactive Zofran 4 mg tablet RxNorm: 445169 1 Tablet(s) PO daily as needed No Start Date 05/19/2015 Inactive Tamiflu 75 mg capsule RxNorm: 840049 1 Capsule(s) PO BID No Start Date 07/23/2017 Inactive tramadol 50 mg tablet RxNorm: 055074 1 Tablet(s) PO daily as needed No Start Date 12/16/2014 Inactive amiodarone 200 mg tablet RxNorm: 744872 1 Tablet(s) PO daily No Start Date 10/12/2015 Inactive Zofran ODT 4 mg disintegrating tablet RxNorm: 169306 1 Tablet(s) PO TID as needed No Start Date 05/02/2017 Inactive albuterol sulfate 2.5 mg/3 mL (0.083 %) solution for nebulization RxNorm: 337677 3 Milliliter(s) INH Q6 PRN No Start Date 09/20/2017 Inactive meclizine 25 mg tablet RxNorm: 243679 Tablet(s) PO as needed No Start Date 05/24/2016 Inactive Pradaxa 150 mg capsule RxNorm: 3049485 1 Capsule(s) PO daily No Start Date 12/15/2014 Inactive metoprolol tartrate 50 mg tablet RxNorm: 987899 1/2 Tablet(s) PO No Start Date 12/15/2014 Inactive Aricept 10 mg tablet RxNorm: 001250 Tablet(s) PO daily No Start Date 05/19/2015 Inactive Calmoseptine 0.44 %-20.6 % topical ointment RxNorm: 447138 1 Application TOP BID and as needed to sore on buttocks No Start Date 09/06/2016 Inactive Zithromax Z-Henrique 250 mg tablet RxNorm: 957927 1 Tablet(s) PO UD No Start Date 11/09/2015 Inactive zpack x 1 Medication Administered Medication Codes Instructions Start Date Status cyanocobalamin (vit B-12) 1,000 mcg/mL injection solution RxNorm: 162438 Milliliter 02/08/2018 Active cyanocobalamin (vit B-12) 1,000 mcg/mL injection solution RxNorm: 873200 Milliliter 01/24/2018 No longer Active cyanocobalamin (vit B-12) 1,000 mcg/mL injection solution RxNorm: 704089 Milliliter 01/10/2018 No longer Active cyanocobalamin (vit B-12) 1,000 mcg/mL injection solution RxNorm: 529808 Milliliter 12/27/2017 No longer Active cyanocobalamin (vit B-12) 1,000 mcg/mL injection solution RxNorm: 366951 1Milliliter 12/12/2017 No longer Active cyanocobalamin (vit B-12) 1,000 mcg/mL injection solution RxNorm: 428713 Milliliter 12/01/2017 No longer Active cyanocobalamin (vit B-12) 1,000 mcg/mL injection solution RxNorm: 840005 1Milliliter 11/17/2017 No longer Active cyanocobalamin (vit B-12) 1,000 mcg/mL injection solution RxNorm: 161244 1Milliliter 11/02/2017 No longer Active cyanocobalamin (vit B-12) 1,000 mcg/mL injection solution RxNorm: 512194 1Milliliter 10/20/2017 No longer Active cyanocobalamin (vit B-12) 1,000 mcg/mL injection solution RxNorm: 191052 Milliliter 10/06/2017 No longer Active cyanocobalamin (vit B-12) 1,000 mcg/mL injection solution RxNorm: 703383 Milliliter 09/21/2017 No longer Active Kenalog 40 mg/mL suspension for injection RxNorm: 5150115 Milliliter 09/15/2017 No longer Active cyanocobalamin (vit B-12) 1,000 mcg/mL injection solution RxNorm: 323635 Milliliter 09/07/2017 No longer Active cyanocobalamin (vit B-12) 1,000 mcg/mL injection solution RxNorm: 826118 Milliliter 08/24/2017 No longer Active cyanocobalamin (vit B-12) 1,000 mcg/mL injection solution RxNorm: 522293 Milliliter 07/06/2017 No longer Active cyanocobalamin (vit B-12) 1,000 mcg/mL injection solution RxNorm: 618735 Milliliter 06/20/2017 No longer Active Kenalog 40 mg/mL suspension for injection RxNorm: 0723992 1Milliliter 06/20/2017 No longer Active cyanocobalamin (vit B-12) 1,000 mcg/mL injection solution RxNorm: 910094 Milliliter 06/05/2017 No longer Active cyanocobalamin (vit B-12) 1,000 mcg/mL injection solution RxNorm: 968996 Milliliter 05/25/2017 No longer Active cyanocobalamin (vit B-12) 1,000 mcg/mL injection solution RxNorm: 628238 Milliliter 05/16/2017 No longer Active cyanocobalamin (vit B-12) 1,000 mcg/mL injection solution RxNorm: 662105 1Milliliter 05/01/2017 No longer Active cyanocobalamin (vit B-12) 1,000 mcg/mL injection solution RxNorm: 398024 Milliliter 04/18/2017 No longer Active cyanocobalamin (vit B-12) 1,000 mcg/mL injection solution RxNorm: 779629 Milliliter 04/06/2017 No longer Active cyanocobalamin (vit B-12) 1,000 mcg/mL injection solution RxNorm: 790439 Milliliter 03/22/2017 No longer Active cyanocobalamin (vit B-12) 1,000 mcg/mL injection solution RxNorm: 322320 Milliliter 03/09/2017 No longer Active cyanocobalamin (vit B-12) 1,000 mcg/mL injection solution RxNorm: 397165 Milliliter 02/23/2017 No longer Active cyanocobalamin (vit B-12) 1,000 mcg/mL injection solution RxNorm: 533522 Milliliter 02/09/2017 No longer Active cyanocobalamin (vit B-12) 1,000 mcg/mL injection solution RxNorm: 928231 Milliliter 01/23/2017 No longer Active cyanocobalamin (vit B-12) 1,000 mcg/mL injection solution RxNorm: 909085 Milliliter 01/10/2017 No longer Active cyanocobalamin (vit B-12) 1,000 mcg/mL injection solution RxNorm: 815406 1Milliliter 12/28/2016 No longer Active cyanocobalamin (vit B-12) 1,000 mcg/mL injection solution RxNorm: 149645 Milliliter 12/14/2016 No longer Active cyanocobalamin (vit B-12) 1,000 mcg/mL injection solution RxNorm: 969773 Milliliter 11/24/2016 No longer Active cyanocobalamin (vit B-12) 1,000 mcg/mL injection solution RxNorm: 703157 1Milliliter 11/07/2016 No longer Active cyanocobalamin (vit B-12) 1,000 mcg/mL injection solution RxNorm: 765400 Milliliter 10/24/2016 No longer Active cyanocobalamin (vit B-12) 1,000 mcg/mL injection solution RxNorm: 414085 1Milliliter 09/29/2016 No longer Active cyanocobalamin (vit B-12) 1,000 mcg/mL injection solution RxNorm: 800131 Milliliter 08/29/2016 No longer Active cyanocobalamin (vit B-12) 1,000 mcg/mL injection solution RxNorm: 116318 Milliliter 08/04/2016 No longer Active cyanocobalamin (vit B-12) 1,000 mcg/mL injection solution RxNorm: 589111 Milliliter 07/21/2016 No longer Active cyanocobalamin (vit B-12) 1,000 mcg/mL injection solution RxNorm: 574831 1Milliliter 07/05/2016 No longer Active cyanocobalamin (vit B-12) 1,000 mcg/mL injection solution RxNorm: 400164 1Milliliter 06/22/2016 No longer Active cyanocobalamin (vit B-12) 1,000 mcg/mL injection solution RxNorm: 187456 Milliliter 06/09/2016 No longer Active cyanocobalamin (vit B-12) 1,000 mcg/mL injection solution RxNorm: 835599 1Milliliter 05/25/2016 No longer Active cyanocobalamin (vit B-12) 1,000 mcg/mL injection solution RxNorm: 619344 Milliliter 05/10/2016 No longer Active cyanocobalamin (vit B-12) 1,000 mcg/mL injection solution RxNorm: 050152 Milliliter 04/26/2016 No longer Active cyanocobalamin (vit B-12) 1,000 mcg/mL injection solution RxNorm: 084454 Milliliter 04/11/2016 No longer Active cyanocobalamin (vit B-12) 1,000 mcg/mL injection solution RxNorm: 304564 Milliliter 03/31/2016 No longer Active cyanocobalamin (vit B-12) 1,000 mcg/mL injection solution RxNorm: 942744 1Milliliter 03/15/2016 No longer Active cyanocobalamin (vit B-12) 1,000 mcg/mL injection solution RxNorm: 546229 Milliliter 02/25/2016 No longer Active cyanocobalamin (vit B-12) 1,000 mcg/mL injection solution RxNorm: 789124 1Milliliter 02/02/2016 No longer Active cyanocobalamin (vit B-12) 1,000 mcg/mL injection solution RxNorm: 879019 Milliliter 01/18/2016 No longer Active cyanocobalamin (vit B-12) 1,000 mcg/mL injection solution RxNorm: 223089 Milliliter 12/29/2015 No longer Active cyanocobalamin (vit B-12) 1,000 mcg/mL injection solution RxNorm: 346973 Milliliter 12/08/2015 No longer Active cyanocobalamin (vit B-12) 1,000 mcg/mL injection solution RxNorm: 229191 Milliliter 11/23/2015 No longer Active cyanocobalamin (vit B-12) 1,000 mcg/mL injection solution RxNorm: 387678 Milliliter 11/11/2015 No longer Active cyanocobalamin (vit B-12) 1,000 mcg/mL injection solution RxNorm: 767663 1Milliliter 10/29/2015 No longer Active cyanocobalamin (vit B-12) 1,000 mcg/mL injection solution RxNorm: 908783 1Milliliter 10/12/2015 No longer Active cyanocobalamin (vit B-12) 1,000 mcg/mL injection solution RxNorm: 492358 1Milliliter 09/29/2015 No longer Active cyanocobalamin (vit B-12) 1,000 mcg/mL injection solution RxNorm: 310256 1Milliliter 09/17/2015 No longer Active cyanocobalamin (vit B-12) 1,000 mcg/mL injection solution RxNorm: 699561 1Milliliter 09/03/2015 No longer Active cyanocobalamin (vit B-12) 1,000 mcg/mL injection solution RxNorm: 243587 Milliliter 08/17/2015 No longer Active cyanocobalamin (vit B-12) 1,000 mcg/mL injection solution RxNorm: 260125 Milliliter 08/06/2015 No longer Active cyanocobalamin (vit B-12) 1,000 mcg/mL injection solution RxNorm: 939106 Milliliter 07/22/2015 No longer Active cyanocobalamin (vit B-12) 1,000 mcg/mL injection solution RxNorm: 088747 Milliliter 07/08/2015 No longer Active cyanocobalamin (vit B-12) 1,000 mcg/mL injection solution RxNorm: 300804 Milliliter 06/23/2015 No longer Active cyanocobalamin (vit B-12) 1,000 mcg/mL injection solution RxNorm: 975262 1Milliliter 06/08/2015 No longer Active cyanocobalamin (vit B-12) 1,000 mcg/mL injection solution RxNorm: 242090 Milliliter 05/27/2015 No longer Active cyanocobalamin (vit B-12) 1,000 mcg/mL injection solution RxNorm: 611250 1Milliliter 05/12/2015 No longer Active cyanocobalamin (vit B-12) 1,000 mcg/mL injection kit RxNorm : 416733 kit 04/30/2015 No longer Active cyanocobalamin (vit B-12) 1,000 mcg/mL injection solution RxNorm: 705568 Milliliter 04/16/2015 No longer Active cyanocobalamin (vit B-12) 1,000 mcg/mL injection solution RxNorm: 839342 Milliliter 04/02/2015 No longer Active cyanocobalamin (vit B-12) 1,000 mcg/mL injection solution RxNorm: 047765 Milliliter 03/18/2015 No longer Active cyanocobalamin (vit B-12) 1,000 mcg/mL injection solution RxNorm: 564099 Milliliter 03/03/2015 No longer Active cyanocobalamin (vit B-12) 1,000 mcg/mL injection solution RxNorm: 014055 Milliliter 02/18/2015 No longer Active cyanocobalamin (vit B-12) 1,000 mcg/mL injection solution RxNorm: 167729 Milliliter 02/04/2015 No longer Active cyanocobalamin (vit B-12) 1,000 mcg/mL injection solution RxNorm: 109659 Milliliter 01/22/2015 No longer Active cyanocobalamin (vit B-12) 1,000 mcg/mL injection solution RxNorm: 160765 Milliliter 01/08/2015 No longer Active cyanocobalamin (vit B-12) 1,000 mcg/mL injection solution RxNorm: 493912 Milliliter 12/25/2014 No longer Active cyanocobalamin (vit B-12) 1,000 mcg/mL injection solution RxNorm: 322025 Milliliter 12/10/2014 No longer Active cyanocobalamin (vit B-12) 1,000 mcg/mL injection solution RxNorm: 231380 Milliliter 11/26/2014 No longer Active cyanocobalamin (vit B-12) 1,000 mcg/mL injection kit RxNorm : 543732 Milliliter 11/12/2014 No longer Active cyanocobalamin (vit B-12) 1,000 mcg/mL injection solution RxNorm: 662311 Milliliter 10/28/2014 No longer Active Immunizations Vaccine Codes Date Status Influenza CVX: 141 03/22/2017 completed Pneumococcal (Adult) CVX: 33 05/25/2016 completed Influenza CVX: 141 03/15/2016 completed Assessments Condition Codes Effective Dates 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 ICD-9: 266.2 02/08/2018 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 ICD-9: 281.0 01/10/2018 Cough ICD-10: R05 ICD-9: 786.2 12/12/2017 Nausea ICD-10: R11.0 ICD-9: 787.02 12/12/2017 Acute bronchitis due to Hemophilus influenzae ICD-10: J20.1 ICD-9: 466.0 12/04/2017 Chronic atrial fibrillation ICD-10: I48.2 ICD-9: 427.31 11/20/2017 Essential (primary) hypertension ICD-10: I10 ICD-9: 401.9 11/20/2017 Acute upper respiratory infection, unspecified ICD-10: J06.9 ICD-9: 465.9 09/15/2017 Laceration without foreign body of right forearm, initial encounter ICD-10: S51.811A ICD-9: 881.00 09/07/2017 Other allergic rhinitis ICD-10: J30.89 ICD-9: 477.8 08/30/2017 Encounter for therapeutic drug level monitoring ICD-10: Z51.81 ICD-9: V58.83 08/30/2017 Laceration without foreign body of left forearm, initial encounter ICD-10: S51.812A ICD-9: 881.00 07/06/2017 Slow transit constipation ICD-10: K59.01 ICD-9: 564.01 07/06/2017 Atrophy of thyroid (acquired) ICD-10: E03.4 ICD-9: 244.8 07/06/2017 Candidiasis of skin and nail ICD-10: B37.2 ICD-9: 112.3 07/06/2017 Acute laryngopharyngitis ICD-10: J06.0 ICD-9: 465.0 06/20/2017 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 ICD-9: 281.1 06/20/2017 Encounter for general adult medical examination with abnormal findings ICD-10: Z00.01 ICD-9: V70.0 06/05/2017 Vitamin B12 deficiency anemia, unspecified ICD-10: D51.9 [...] Actinic keratosis ICD-10: L57.0 ICD-9: 702.0 05/19/2015 Cervicalgia ICD-10: M54.2 ICD-9: 723.1 05/12/2015 B12 deficiency ICD-9: 266.2 03/18/2015 Other screening mammogram ICD-9: V76.12 01/22/2015 Insomnia ICD-9: 780.52 01/13/2015 Afib ICD-9: 427.31 01/13/2015 Anxiety ICD-9: 300.00 01/13/2015 ESSENTIAL HYPERTENSION ICD-9: 401.9 01/13 Hypothyroidism ICD-9: 244.9 12/16/2014 DIABETES TYPE II ICD-9: 250.00 2014 Reason For Visit Reason For Visit Effective Dates Notes cough 12/12/2017 shortness of breath 12/04/2017 cough 11/20/2017 sinus congestion 09/15/2017 skin lesion 09/07/2017 sinus congestion 08/30/2017 Hospital Follow Up 07/06/2017 Pneumonia, fluid overload [...] Observation Code Item Item Code Result Date Digoxin Ord9 DIGOXIN 0.7 NG/ML 11/23/2017 Comp Metabolic Zwf111 NA 142 mEq/L 11/23/2017 Comp Metabolic Acl661 K 4.9 mEq/L 11/23/2017 Comp Metabolic Dlt487 CL 112 mEq/L 11/23/2017 Comp Metabolic Ylm074 CO2 18.0 mEq/L 11/23/2017 Comp Metabolic Aui475 ANION GAP 17 11/23/2017 Comp Metabolic Epj337 GLUCOSE 123 mg/dL 11/23/2017 Comp Metabolic Stc736 Creat 1.0 mg/dL 11/23/2017 Comp Metabolic Fch333 eGFR 59 ml/min/1.73m2 11/23/2017 Comp Metabolic Qcv208 BUN 24 mg/dL 11/23/2017 Comp Metabolic Row427 B/C Ratio 25.0 Ratio 11/23/2017 Comp Metabolic Are724 CALCIUM 9.4 mg/dL 11/23/2017 Comp Metabolic Idd103 ALK PHOS 56 U/L 11/23/2017 Comp Metabolic Eai376 AST(SGOT) 17 U/L 11/23/2017 Comp Metabolic Zpc691 ALT(SGPT) 16 U/L 11/23/2017 Comp Metabolic Bjb625 BILI T 0.7 mg/dL 11/23/2017 Comp Metabolic Mvl127 ALBUMIN 3.8 g/dL 11/23/2017 Comp Metabolic Lrx461 TPRO 6.2 g/dL 11/23/2017 Comp Metabolic Gxs814 GLOB 2.4 g/dL 11/23/2017 Comp Metabolic Ebt431 A/G Ratio 1.6 Ratio 11/23/2017 Comp Metabolic Vhs705 Osmo 289 mOsmo 11/23/2017 Free T4 Thu437 FREE T4 1.04 ng/dL 11/23/2017 %Hba1C Piw892 % HbA1c 18319-9 6.4 % 11/23/2017 %Hba1C Atb928 Gluc Ave 137 mg/dL 11/23/2017 Lipid Ord30 CHOL 179 mg/dL 11/23/2017 Lipid Ord30 HDL 51.0 mg/dl 11/23/2017 Lipid Ord30 TRIG 134 mg/dL 11/23/2017 Lipid Ord30 LDL 101 mg/dL 11/23/2017 Lipid Ord30 C/HDL 3.5 Ratio 11/23/2017 Tsh Ord6 TSH (3rd IS) 1.00 uIU/mL 11/23/2017 Microalbumin Zry676 MicroAlb <0.7 mg/dL 11/23/2017 Comp Metabolic Rkp893 NA 141 mEq/L 01/23/2017 Comp Metabolic Vhd511 K 4.5 mEq/L 01/23/2017 Comp Metabolic Xts662 CL 107 mEq/L 01/23/2017 Comp Metabolic Dux894 CO2 21.0 mEq/L 01/23/2017 Comp Metabolic Eqx194 ANION GAP 18 01/23/2017 Comp Metabolic Exb746 GLUCOSE 138 mg/dL 01/23/2017 Comp Metabolic Dvh498 Creat 1.0 mg/dL 01/23/2017 Comp Metabolic Zxs075 eGFR 56 ml/min/1.73m2 01/23/2017 Comp Metabolic Zbh389 BUN 26 mg/dL 01/23/2017 Comp Metabolic Wdo401 B/C Ratio 25.7 Ratio 01/23/2017 Comp Metabolic Kkc349 CALCIUM 9.0 mg/dL 01/23/2017 Comp Metabolic Zmf614 ALK PHOS 37 U/L 01/23/2017 Comp Metabolic Pwa681 AST(SGOT) 20 U/L 01/23/2017 Comp Metabolic Myi149 ALT(SGPT) 25 U/L 01/23/2017 Comp Metabolic Jix604 BILI T 0.9 mg/dL 01/23/2017 Comp Metabolic Tzr414 ALBUMIN 3.8 g/dL 01/23/2017 Comp Metabolic Wys520 TPRO 6.5 g/dL 01/23/2017 Comp Metabolic Oge341 GLOB 2.7 g/dL 01/23/2017 Comp Metabolic Oge318 A/G Ratio 1.4 Ratio 01/23/2017 Comp Metabolic Tnb011 Osmo 288 mOsmo 01/23/2017 Free T4 Oic772 FREE T4 1.05 ng/dL 01/23/2017 %Hba1C Pei222 % HbA1c 81761-1 6.1 % 01/23/2017 %Hba1C Vvp955 Gluc Ave 128 mg/dL 01/23/2017 Tsh Ord6 hTSH II 1.68 uIU/mL 01/23/2017 Culture Urine [id number] URINE CULTURE SEE NOTES 11/10/2016 Culture Urine [id number] Continued Results 11/10/2016 Urine Culture Ucult Complete [...] Ord15 CALCIUM 9.3 mg/dL 09/29/2016 Free T4 Mwc246 FREE T4 0.99 ng/dL 09/07/2016 Cbc With [...] 30.0 pg 09/07/2016 Cbc With Differential Ord2 Latimer% 9.8 % 09/07/2016 Cbc With Differential Ord2 [...] 1.75 K/ul 09/07/2016 Cbc With Differential Ord2 Latimer ABS# 0.6 K/ul 09/07/2016 Cbc With Differential Ord2 Eos ABS# 0.1 K/ul 09/07/2016 Cbc With Differential Ord2 Baso ABS# 0.0 K/ul 09/07/2016 Tsh Ord6 hTSH II 1.41 uIU/mL 09/07/2016 Culture Urine [id number] URINE CULTURE SEE NOTES 06/27/2016 Lipid Ord30 CHOL 196 mg/dL 06/22/2016 Lipid Ord30 HDL 63.0 mg/dl 06/22/2016 Lipid Ord30 TRIG 154 mg/dL 06/22/2016 Lipid Ord30 LDL 102 mg/dL 06/22/2016 Lipid Ord30 C/HDL 3.1 Ratio 06/22/2016 Hepatic Ayj945 ALBUMIN 4.2 g/dL 06/22/2016 Hepatic Ylb255 TPRO 7.0 g/dL 06/22/2016 Hepatic Sbs537 GLOB 2.8 g/dL 06/22/2016 Hepatic Gqq801 A/G Ratio 1.5 Ratio 06/22/2016 Hepatic Sor051 ALK PHOS 54 U/L 06/22/2016 Hepatic Rrl081 ALT(SGPT) 30 U/L 06/22/2016 Hepatic Wdz013 AST(SGOT) 24 U/L 06/22/2016 Hepatic Msa382 BILI T 1.1 mg/dL 06/22/2016 Hepatic Ndh479 BILI D 0.2 mg/dL 06/22/2016 Hepatic Sll859 BILI I 0.9 mg/dL 06/22/2016 Comp Metabolic Mif327 NA 139 mEq/L 06/14/2016 Comp Metabolic Kyb130 K 4.6 mEq/L 06/14/2016 Comp Metabolic Sho602 CL 108 mEq/L 06/14/2016 Comp Metabolic Qmx992 CO2 22.0 mEq/L 06/14/2016 Comp Metabolic Glb903 ANION GAP 14 06/14/2016 Comp Metabolic Unx519 GLUCOSE 114 mg/dL 06/14/2016 Comp Metabolic Unu333 Creat 1.2 mg/dL 06/14/2016 Comp Metabolic Awq903 eGFR 48 ml/min/1.73m2 06/14/2016 Comp Metabolic Zci392 BUN 24 mg/dL 06/14/2016 Comp Metabolic Iuw718 B/C Ratio 20.9 Ratio 06/14/2016 Comp Metabolic Ftm165 CALCIUM 9.9 mg/dL 06/14/2016 Comp Metabolic Ufs016 ALK PHOS 47 U/L 06/14/2016 Comp Metabolic Vfd694 AST(SGOT) 28 U/L 06/14/2016 Comp Metabolic Frx936 ALT(SGPT) 32 U/L 06/14/2016 Comp Metabolic Qwm977 BILI T 0.9 mg/dL 06/14/2016 Comp Metabolic Bgx511 ALBUMIN 4.1 g/dL 06/14/2016 Comp Metabolic Blf744 TPRO 6.9 g/dL 06/14/2016 Comp Metabolic Olb364 GLOB 2.8 g/dL 06/14/2016 Comp Metabolic Bja639 A/G Ratio 1.5 Ratio 06/14/2016 Comp Metabolic Qqt172 Osmo 282 mOsmo 06/14/2016 Tsh Ord6 hTSH II 1.26 uIU/mL 06/14/2016 Free T4 Mat616 FREE T4 1.09 ng/dL 06/14/2016 Tsh Ord6 hTSH II 0.28 uIU/mL 02/02/2016 Digoxin Ord9 DIGOXIN 0.7 NG/ML 02/02/2016 Free T4 Gxc390 FREE T4 1.23 ng/dL 02/02/2016 Hepatic Yzd599 ALBUMIN 4.0 g/dL 02/02/2016 Hepatic Pwb272 TPRO 7.0 g/dL 02/02/2016 Hepatic Guv717 GLOB 3.0 g/dL 02/02/2016 Hepatic Cmt859 A/G Ratio 1.3 Ratio 02/02/2016 Hepatic Moq323 ALK PHOS 57 U/L 02/02/2016 Hepatic Pwq382 ALT(SGPT) 62 U/L 02/02/2016 Hepatic Jog806 AST(SGOT) 54 U/L 02/02/2016 Hepatic Ffb989 BILI T 0.8 mg/dL 02/02/2016 Hepatic Gjx637 BILI D 0.2 mg/dL 02/02/2016 Hepatic Npj209 BILI I 0.6 mg/dL 02/02/2016 Urine Culture Ucult Preliminary No Growth Day 1 11/25/2015 Urine Culture Ucult Complete No Growth Day 2 11/25/2015 Hepatic Ohc761 ALBUMIN 3.9 g/dL 11/11/2015 Hepatic Jaz520 TPRO 7.0 g/dL 11/11/2015 Hepatic Fzx310 GLOB 3.1 g/dL 11/11/2015 Hepatic Dek812 A/G Ratio 1.3 Ratio 11/11/2015 Hepatic Hlk358 ALK PHOS 63 U/L 11/11/2015 Hepatic Tde908 ALT(SGPT) 107 U/L 11/11/2015 Hepatic Vxi049 AST(SGOT) 101 U/L 11/11/2015 Hepatic Ssz348 BILI T 0.6 mg/dL 11/11/2015 Hepatic Qow640 BILI D 0.1 mg/dL 11/11/2015 Hepatic Zgc554 BILI I 0.5 mg/dL 11/11/2015 Comp Metabolic Ahw448 NA 138 mEq/L 10/29/2015 Comp Metabolic Noy682 K 5.0 mEq/L 10/29/2015 Comp Metabolic Rrx226 CL 105 mEq/L 10/29/2015 Comp Metabolic Bjv857 CO2 23.0 mEq/L 10/29/2015 Comp Metabolic Jbs170 ANION GAP 15 10/29/2015 Comp Metabolic Mvg388 GLUCOSE 105 mg/dL 10/29/2015 Comp Metabolic Gnw476 Creat 1.0 mg/dL 10/29/2015 Comp Metabolic Vkw356 eGFR 55 ml/min/1.73m2 10/29/2015 Comp Metabolic Qps332 BUN 20 mg/dL 10/29/2015 Comp Metabolic Pxk021 B/C Ratio 19.4 Ratio 10/29/2015 Comp Metabolic Ect264 CALCIUM 8.8 mg/dL 10/29/2015 Comp Metabolic Lww309 ALK PHOS 56 U/L 10/29/2015 Comp Metabolic Xje106 AST(SGOT) 66 U/L 10/29/2015 Comp Metabolic Cln901 ALT(SGPT) 78 U/L 10/29/2015 Comp Metabolic Ptz624 BILI T 0.7 mg/dL 10/29/2015 Comp Metabolic Gmo444 ALBUMIN 3.6 g/dL 10/29/2015 Comp Metabolic Pyt255 TPRO 6.6 g/dL 10/29/2015 Comp Metabolic Xvf770 GLOB 3.0 g/dL 10/29/2015 Comp Metabolic Gzb029 A/G Ratio 1.2 Ratio 10/29/2015 Comp Metabolic Ycd724 Osmo 279 mOsmo 10/29/2015 Comp Metabolic Dyc736 NA 136 mEq/L 09/03/2015 Comp Metabolic Bjy429 K 4.4 mEq/L 09/03/2015 Comp Metabolic Sqe831 CL 103 mEq/L 09/03/2015 Comp Metabolic Cgl121 CO2 24.0 mEq/L 09/03/2015 Comp Metabolic Udy129 ANION GAP 13 09/03/2015 Comp Metabolic Yms492 GLUCOSE 87 mg/dL 09/03/2015 Comp Metabolic Hxf662 Creat 1.1 mg/dL 09/03/2015 Comp Metabolic Cee042 eGFR 53 ml/min/1.73m2 09/03/2015 Comp Metabolic Rmq444 BUN 17 mg/dL 09/03/2015 Comp Metabolic Kgj189 B/C Ratio 16.2 Ratio 09/03/2015 Comp Metabolic Cwd890 CALCIUM 9.0 mg/dL 09/03/2015 Comp Metabolic Sdd152 ALK PHOS 55 U/L 09/03/2015 Comp Metabolic Zwd729 AST(SGOT) 83 U/L 09/03/2015 Comp Metabolic Hzs144 ALT(SGPT) 126 U/L 09/03/2015 Comp Metabolic Saa811 BILI T 0.9 mg/dL 09/03/2015 Comp Metabolic Lgx225 ALBUMIN 3.9 g/dL 09/03/2015 Comp Metabolic Ume143 TPRO 6.8 g/dL 09/03/2015 Comp Metabolic Wfw947 GLOB 2.9 g/dL 09/03/2015 Comp Metabolic Tnc048 A/G Ratio 1.4 Ratio 09/03/2015 Comp Metabolic Wjq094 Osmo 273 mOsmo 09/03/2015 Total T3 Ord42 TT3 0.6 ng/ml 07/09/2015 Tsh Ord6 hTSH II 1.62 uIU/mL 07/09/2015 Total T3 Ord42 TT3 0.5 ng/ml 04/02/2015 Free T4 Bya583 FREE T4 1.23 ng/dL 04/02/2015 Tsh Ord6 hTSH II 5.95 uIU/mL 04/02/2015 Review of Systems System Result Effective Dates Constitutional recent illness 12/12/2017 Constitutional No chills 12/12/2017 Constitutional No diaphoresis 12/12/2017 Constitutional No fever 12/12/2017 Eyes No blindness 12/12/2017 Ears/Nose/Throat/Neck No nasal discharge 12/12/2017 Cardiovascular No chest pain/pressure Cardiovascular No dyspnea 12/12/2017 Respiratory cough 12/12/2017 Respiratory No dyspnea 12/12/2017 Gastrointestinal No hemorrhoids 2017 Gastrointestinal No abdominal pain 2017 Gastrointestinal constipation 12/12/2017 Gastrointestinal diarrhea 12/12/2017 Gastrointestinal No gastroesophageal reflux 12/12/2017 Gastrointestinal No melena 12/12/2017 Gastrointestinal nausea 12/12/2017 Gastrointestinal vomiting 12/12/2017 Genitourinary/Nephrology No urinary urgency 12/12/2017 Genitourinary/Nephrology No urinary frequency 12/12/2017 Musculoskeletal No stiffness 12/12/2017 Musculoskeletal No swelling 12/12/2017 Musculoskeletal No muscle weakness 2017 Musculoskeletal No myalgias 12/12/2017 Dermatologic No rash 12/12/2017 Dermatologic No sores 12/12/2017 Neurologic No alteration of consciousness 12/12/2017 Neurologic No mental status change 2017 Psychiatric anxiety 12/12/2017 Psychiatric depression 12/12/2017 Constitutional anorexia 12/12/2017 Constitutional No night sweats 2017 Constitutional No fatigue 12/12/2017 Constitutional No insomnia 12/12/2017 Constitutional No malaise 12/12/2017 Constitutional weight loss 12/12/2017 Constitutional fatigue 12/04/2017 Constitutional recent illness 12/04/2017 Ears/Nose/Throat/Neck headache 2017 Ears/Nose/Throat/Neck nasal discharge Ears/Nose/Throat/Neck No sinusitis 2017 Ears/Nose/Throat/Neck No sore throat Cardiovascular No chest pain/pressure Cardiovascular No dyspnea 12/04/2017 Cardiovascular No edema 12/04/2017 Cardiovascular No fatigue 12/04/2017 Cardiovascular No syncope 12/04/2017 Respiratory No chest tightness 2017 Respiratory cough 12/04/2017 Respiratory No dyspnea 12/04/2017 Respiratory wheezing 12/04/2017 Gastrointestinal No constipation 2017 Gastrointestinal No diarrhea 12/04/2017 Gastrointestinal No dyspepsia 12/04/2017 Gastrointestinal No nausea 12/04/2017 Musculoskeletal No muscle weakness 2017 Musculoskeletal No myalgias 12/04/2017 Dermatologic No rash 12/04/2017 Neurologic No ataxia 12/04/2017 Neurologic No dizziness 12/04/2017 Neurologic No pain, facial 12/04/2017 Psychiatric No anxiety 12/04/2017 Psychiatric No depression 12/04/2017 Constitutional No recent illness 2017 Constitutional No chills 11/20/2017 Constitutional No diaphoresis 11/20/2017 Constitutional No fever 11/20/2017 Eyes No blindness 11/20/2017 Ears/Nose/Throat/Neck No nasal discharge 11/20/2017 Ears/Nose/Throat/Neck oral lesion 2017 Cardiovascular No chest pain/pressure 09/2017 Cardiovascular No dyspnea 11/20/2017 Respiratory cough 11/20/2017 Respiratory No dyspnea 11/20/2017 Gastrointestinal No hemorrhoids 2017 Gastrointestinal No abdominal pain 2017 Gastrointestinal No constipation 2017 Gastrointestinal No diarrhea 11/20/2017 Gastrointestinal No gastroesophageal reflux 11/20/2017 Gastrointestinal No melena 11/20/2017 Gastrointestinal No nausea 11/20/2017 Gastrointestinal No vomiting 11/20/2017 Musculoskeletal No stiffness 11/20/2017 Musculoskeletal No swelling 11/20/2017 Musculoskeletal No muscle weakness 2017 Musculoskeletal No myalgias 11/20/2017 Dermatologic No rash 11/20/2017 Dermatologic No sores 11/20/2017 Neurologic No alteration of consciousness 11/20/2017 Neurologic No mental status change 2017 Psychiatric anxiety 11/20/2017 Psychiatric depression 11/20/2017 Genitourinary/Nephrology No urinary urgency 11/20/2017 Genitourinary/Nephrology No urinary frequency 11/20/2017 Constitutional recent illness 09/15/2017 Constitutional No anorexia 09/15/2017 Constitutional night sweats 09/15/2017 Constitutional No chills 09/15/2017 Constitutional No diaphoresis 09/15/2017 Constitutional No fatigue 09/15/2017 Constitutional No fever 09/15/2017 Constitutional No insomnia 09/15/2017 Constitutional No malaise 09/15/2017 Constitutional No weight loss 09/15/2017 Constitutional No weight gain 09/15/2017 Eyes No eye discharge 09/15/2017 Eyes No eye erythema 09/15/2017 Ears/Nose/Throat/Neck No dizziness 2017 Ears/Nose/Throat/Neck headache 2017 Ears/Nose/Throat/Neck nasal allergies Ears/Nose/Throat/Neck nasal discharge Ears/Nose/Throat/Neck sinus congestion Ears/Nose/Throat/Neck No sore throat Cardiovascular No chest pain/pressure Cardiovascular No dyspnea 09/15/2017 Respiratory productive sputum 09/15/2017 Respiratory No chest congestion 2017 Respiratory cough 09/15/2017 Gastrointestinal No abdominal pain 2017 Gastrointestinal No constipation 2017 Gastrointestinal No diarrhea 09/15/2017 Genitourinary/Nephrology No dysuria 09/15 Musculoskeletal No joint complaint 2017 Dermatologic No rash 09/15/2017 Neurologic No alteration of consciousness 09/15/2017 Constitutional No recent illness 2017 Constitutional No chills 09/07/2017 Constitutional No diaphoresis 09/07/2017 Constitutional No fever 09/07/2017 Eyes No eye erythema 09/07/2017 Ears/Nose/Throat/Neck No nasal discharge 09/07/2017 Cardiovascular No chest pain/pressure Respiratory No cough 09/07/2017 Respiratory No chest congestion 2017 Gastrointestinal No abdominal pain 2017 Dermatologic sores 09/07/2017 Neurologic No alteration of consciousness 09/07/2017 Neurologic No mental status change 2017 Constitutional No recent illness 2017 Constitutional No chills 08/30/2017 Constitutional No diaphoresis 08/30/2017 Constitutional No fever 08/30/2017 Eyes No blindness 08/30/2017 Ears/Nose/Throat/Neck No nasal discharge 08/30/2017 Ears/Nose/Throat/Neck oral lesion 2017 Cardiovascular No chest pain/pressure Cardiovascular No dyspnea 08/30/2017 Respiratory cough 08/30/2017 Respiratory No dyspnea 08/30/2017 Gastrointestinal No hemorrhoids 2017 Gastrointestinal No abdominal pain 2017 Gastrointestinal No constipation 2017 Gastrointestinal No diarrhea 08/30/2017 Gastrointestinal No gastroesophageal reflux 08/30/2017 Gastrointestinal No melena 08/30/2017 Gastrointestinal No nausea 08/30/2017 Gastrointestinal No vomiting 08/30/2017 Musculoskeletal No stiffness 08/30/2017 Musculoskeletal No swelling 08/30/2017 Musculoskeletal No muscle weakness 2017 Musculoskeletal No myalgias 08/30/2017 Neurologic No alteration of consciousness 08/30/2017 Neurologic No mental status change 2017 Psychiatric anxiety 08/30/2017 Psychiatric depression 08/30/2017 Dermatologic No sores 08/30/2017 Dermatologic No rash 08/30/2017 Constitutional No recent illness 2017 Constitutional No [...] 1994 Constitutional general appearance Overall: well developed 12/12/2017 None Full Exam - General 1994 Constitutional general appearance Overall: in no acute distress 12/12/2017 None Full Exam - General 1994 Constitutional general appearance Overall: well nourished 12/12/2017 None Full Exam - General 1994 Eyes conjunctiva /eyelids Overall: conjunctiva clear 12/12/2017 None Full Exam - General 1994 Eyes conjunctiva /eyelids Overall: eyelids normal 12/12/2017 None Full Exam - General 1994 Ears/Nose/Throat lips/teeth/gingiva Overall: benign lips 12/12/2017 None Full Exam - General 1994 Respiratory auscultation Overall: breath sounds clear bilaterally 12/12/2017 None Full Exam - General 1994 Respiratory respiratory effort/rhythm Overall: no retractions 12/12/2017 None Full Exam - General 1994 Respiratory respiratory effort/rhythm Overall: normal rate 12/12/2017 None Full Exam - General 1994 Cardiovascular extremities Overall: no clubbing 12/12/2017 None Full Exam - General 1994 Cardiovascular auscultation of heart Overall: regular rate 12/12/2017 None Full Exam - General 1994 Cardiovascular auscultation of heart Overall: normal heart sounds 12/12/2017 None Full Exam - General 1994 Cardiovascular auscultation of heart Overall: no murmurs 12/12/2017 None Full Exam - General 1994 Abdomen abdominal exam Overall: no tenderness 12/12/2017 None Full Exam - General 1994 Abdomen abdominal exam Overall: normal bowel sounds 12/12/2017 None Full Exam - General 1994 Musculoskeletal head and neck Overall: head atraumatic 12/12/2017 None Full Exam - General 1994 Neurologic cranial nerves Overall: crainial nerves 2 - 12 grossly intact 12/12/2017 None Full Exam - General 1994 Psychiatric orientation/consciousness Overall: oriented to person, place and time 12/12/2017 None Full Exam - General 1994 Psychiatric mood and affect Overall: normal mood and affect 12/12/2017 None Full Exam - General 1994 Psychiatric appearance Overall: well-groomed, good eye contact 12/12/2017 None Full Exam - General 1994 Constitutional general appearance Overall: well nourished 12/04/2017 None Full Exam - General 1994 Constitutional general appearance Overall: well developed 12/04/2017 None Full Exam - General 1994 Constitutional general appearance Overall: in no acute distress 12/04/2017 None Full Exam - General 1994 Eyes pupils and irises Overall: pupils equal, round, reactive to light and accomodation 12/04/2017 None Full Exam - General 1994 Ears/Nose/Throat otoscopic exam Tympanic membrane: bulging 12/04/2017 None Full Exam - General 1994 Ears/Nose/Throat oral cavity/pharynx/larynx Overall: oropharyngeal mucosa clear 12/04/2017 None Full Exam - General 1994 Ears/Nose/Throat oral cavity/pharynx/larynx Overall: no masses 12/04/2017 None Full Exam - General 1994 Ears/Nose/Throat oral cavity/pharynx/larynx Overall: oral mucosa clear 12/04/2017 None Full Exam - General 1994 Respiratory auscultation Lower lung field: diminished 12/04/2017 None Full Exam - General 1994 Respiratory auscultation Lower lung field: expiratory wheezes 12/04/2017 None Full Exam - General 1994 Respiratory auscultation Upper lung field: expiratory wheezes 12/04/2017 None Full Exam - General 1994 Respiratory respiratory effort/rhythm Overall: normal rate 12/04/2017 None Full Exam - General 1994 Respiratory respiratory effort/rhythm Overall: no retractions 12/04/2017 None Full Exam - General 1994 Cardiovascular extremities Overall: no clubbing 12/04/2017 None Full Exam - General 1994 Cardiovascular auscultation of heart Overall: regular rate 12/04/2017 None Full Exam - General 1994 Cardiovascular auscultation of heart Overall: normal heart sounds 12/04/2017 None Full Exam - General 1994 Cardiovascular auscultation of heart Overall: no murmurs 12/04/2017 None Full Exam - General 1994 Abdomen abdominal exam Overall: no tenderness 12/04/2017 None Full Exam - General 1994 Abdomen abdominal exam Overall: normal bowel sounds 12/04/2017 None Full Exam - General 1994 Lymphatic neck nodes Overall: anterior cervical chain benign 12/04/2017 None Full Exam - General 1994 Lymphatic neck nodes Overall: posterior cervical chain benign 12/04/2017 None Full Exam - General 1994 Psychiatric orientation/consciousness Overall: oriented to person, place and time 12/04/2017 None Full Exam - General 1994 Psychiatric mood and affect Mood: happy 12/04/2017 None Full Exam - General 1994 Psychiatric mood and affect Overall: normal mood and affect 12/04/2017 None Full Exam - General 1994 Constitutional general appearance Overall: well developed 11/20/2017 None Full Exam - General 1994 Constitutional general appearance Overall: in no acute distress 11/20/2017 None Full Exam - General 1994 Constitutional general appearance Overall: well nourished 11/20/2017 None Full Exam - General 1994 Eyes conjunctiva /eyelids Overall: conjunctiva clear 11/20/2017 None Full Exam - General 1994 Eyes conjunctiva /eyelids Overall: eyelids normal 11/20/2017 None Full Exam - General 1994 Ears/Nose/Throat lips/teeth/gingiva Overall: benign lips 11/20/2017 None Full Exam - General 1994 Respiratory respiratory effort/rhythm Overall: no retractions 11/20/2017 None Full Exam - General 1994 Respiratory respiratory effort/rhythm Overall: normal rate 11/20/2017 None Full Exam - General 1994 Abdomen abdominal exam Overall: no tenderness 11/20/2017 None Full Exam - General 1994 Abdomen abdominal exam Overall: normal bowel sounds 11/20/2017 None Full Exam - General 1994 Musculoskeletal head and neck Overall: head atraumatic 11/20/2017 None Full Exam - General 1994 Neurologic cranial nerves Overall: crainial nerves 2 - 12 grossly intact 11/20/2017 None Full Exam - General 1994 Psychiatric orientation/consciousness Overall: oriented to person, place and time 11/20/2017 None Full Exam - General 1994 Psychiatric mood and affect Overall: normal mood and affect 11/20/2017 None Full Exam - General 1994 Psychiatric appearance Overall: well-groomed, good eye contact 11/20/2017 None Full Exam - General 1994 Cardiovascular extremities Overall: no clubbing 11/20/2017 None Full Exam - General 1994 Cardiovascular auscultation of heart Overall: regular rate 11/20/2017 None Full Exam - General 1994 Cardiovascular auscultation of heart Overall: normal heart sounds 11/20/2017 None Full Exam - General 1994 Cardiovascular auscultation of heart Overall: no murmurs 11/20/2017 None Full Exam - General 1994 Respiratory auscultation Overall: breath sounds clear bilaterally 11/20/2017 None Full Exam - General 1994 Constitutional general appearance Overall: well developed 09/15/2017 None Full Exam - General 1994 Constitutional general appearance Overall: in no acute distress 09/15/2017 None Full Exam - General 1994 Constitutional general appearance Overall: well nourished 09/15/2017 None Full Exam - General 1994 Eyes conjunctiva /eyelids Overall: conjunctiva clear 09/15/2017 None Full Exam - General 1994 Eyes conjunctiva /eyelids Overall: eyelids normal 09/15/2017 None Full Exam - General 1994 Ears/Nose/Throat lips/teeth/gingiva Overall: benign lips 09/15/2017 None Full Exam - General 1994 Respiratory respiratory effort/rhythm Overall: no retractions 09/15/2017 None Full Exam - General 1994 Respiratory respiratory effort/rhythm Overall: normal rate 09/15/2017 None Full Exam - General 1994 Abdomen abdominal exam Overall: no tenderness 09/15/2017 None Full Exam - General 1994 Abdomen abdominal exam Overall: normal bowel sounds 09/15/2017 None Full Exam - General 1994 Musculoskeletal head and neck Overall: head atraumatic 09/15/2017 None Full Exam - General 1994 Neurologic cranial nerves Overall: crainial nerves 2 - 12 grossly intact 09/15/2017 None Full Exam - General 1994 Psychiatric orientation/consciousness Overall: oriented to person, place and time 09/15/2017 None Full Exam - General 1994 Psychiatric mood and affect Overall: normal mood and affect 09/15/2017 None Full Exam - General 1994 Psychiatric appearance Overall: well-groomed, good eye contact 09/15/2017 None Full Exam - Dermatology Constitutional general appearance Overall: well nourished 09/07/2017 None Full Exam - Dermatology Constitutional general appearance Overall: well developed 09/07/2017 None Full Exam - Dermatology Constitutional general appearance Overall: in no acute distress 09/07/2017 None Full Exam - Dermatology Eyes conjunctiva/ eyelids Overall: clear conjunctiva bilaterally 09/07/2017 None Full Exam - Dermatology Eyes conjunctiva/ eyelids Overall: clear corneas 09/07/2017 None Full Exam - Dermatology Eyes conjunctiva/ eyelids Overall: normal eyelids 09/07/2017 None Full Exam - Dermatology Ears/Nose/Throat lips/teeth/gingiva Overall: benign lips 09/07/2017 None Full Exam - Dermatology Ears/Nose/Throat oropharynx Overall: clear oral mucosa 09/07/2017 None Full Exam - Dermatology Respiratory respiratory effort/rhythm Overall: no retractions 09/07/2017 None Full Exam - Dermatology Respiratory respiratory effort/rhythm Overall: normal rate 09/07/2017 None Full Exam - Dermatology Musculoskeletal head and neck Overall: head atraumatic 09/07/2017 None Full Exam - Dermatology Integument insp & palp - right upper extremity Location: on the forearm 09/07/2017 skin tear approximately 1-1.5 CM - Full Exam - Dermatology Integument insp & palp - right upper extremity Color: erythematous 09/07/2017 None Full Exam - Dermatology Integument insp & palp - right upper extremity Appearance: tender 09/07/2017 None Full Exam - Dermatology Integument insp & palp - right upper extremity Appearance: edematous 09/07/2017 mild Full Exam - Dermatology Psychiatric orientation Overall: oriented to person, place and time 09/07/2017 None Full Exam - Dermatology Psychiatric mood and affect Overall: normal mood and affect 09/07/2017 None Full Exam - General 1994 Constitutional general appearance Overall: well developed 08/30/2017 None Full Exam - General 1994 Constitutional general appearance Overall: in no acute distress 08/30/2017 None Full Exam - General 1994 Constitutional general appearance Overall: well nourished 08/30/2017 None Full Exam - General 1994 Eyes conjunctiva /eyelids Overall: conjunctiva clear 08/30/2017 None Full Exam - General 1994 Eyes conjunctiva /eyelids Overall: eyelids normal 08/30/2017 None Full Exam - General 1994 Ears/Nose/Throat lips/teeth/gingiva Overall: benign lips 08/30/2017 None Full Exam - General 1994 Respiratory respiratory effort/rhythm Overall: no retractions 08/30/2017 None Full Exam - General 1994 Respiratory respiratory effort/rhythm Overall: normal rate 08/30/2017 None Full Exam - General 1994 Abdomen abdominal exam Overall: no tenderness 08/30/2017 None Full Exam - General 1994 Abdomen abdominal exam Overall: normal bowel sounds 08/30/2017 None Full Exam - General 1994 Musculoskeletal head and neck Overall: head atraumatic 08/30/2017 None Full Exam - General 1994 Neurologic cranial nerves Overall: crainial nerves 2 - 12 grossly intact 08/30/2017 None Full Exam - General 1994 Psychiatric orientation/consciousness Overall: oriented to person, place and time 08/30/2017 None Full Exam - General 1994 Psychiatric mood and affect Overall: normal mood and affect 08/30/2017 None Full Exam - General 1994 Psychiatric appearance Overall: well-groomed, good eye contact 08/30/2017 None Full Exam - General 1994 Constitutional [...] Procedure Codes Date THER/PROPH/DIAG INJ SC/IM CPT-4: 32173 02/08/2018 THER/PROPH/DIAG INJ SC/IM CPT-4: 46496 01/24/2018 THER/PROPH/DIAG INJ SC/IM CPT-4: 74130 01/10/2018 THER/PROPH/DIAG INJ SC/IM CPT-4: 34428 12/27/2017 VITAMIN B12 INJECTION CPT-4: J3420 12/27/2017 THER/PROPH/DIAG INJ SC/IM CPT-4: 41832 12/12/2017 THER/PROPH/DIAG INJ SC/IM CPT-4: 08240 12/01/2017 VITAMIN B12 INJECTION CPT-4: J3420 12/01/2017 THER/PROPH/DIAG INJ SC/IM CPT-4: 23009 11/17/2017 THER/PROPH/DIAG INJ SC/IM CPT-4: 31626 11/02/2017 THER/PROPH/DIAG INJ SC/IM CPT-4: 39260 10/20/2017 THER/PROPH/DIAG INJ SC/IM CPT-4: 65731 10/06/2017 THER/PROPH/DIAG INJ SC/IM CPT-4: 57398 09/21/2017 TRIAMCINOLONE ACET INJ NOS CPT-4: J3301 09/15/2017 THER/PROPH/DIAG INJ SC/IM CPT-4: 94716 09/07/2017 THER/PROPH/DIAG INJ SC/IM CPT-4: 53308 08/24/2017 THER/PROPH/DIAG INJ SC/IM CPT-4: 69552 07/06/2017 THER/PROPH/DIAG INJ SC/IM CPT-4: 57773 06/20/2017 TRIAMCINOLONE ACET INJ NOS CPT-4: J3301 06/20/2017 PPPS, SUBSEQ VISIT CPT -4: G0439 06/05/2017 THER/PROPH/DIAG INJ SC/IM CPT-4: 54883 06/05/2017 THER/PROPH/DIAG INJ SC/IM CPT-4: 10558 05/25/2017 VITAMIN B12 INJECTION CPT-4: J3420 05/25/2017 THER/PROPH/DIAG INJ SC/IM CPT-4: 21669 05/16/2017 THER/PROPH/DIAG INJ SC/IM CPT-4: 81210 05/01/2017 THER/PROPH/DIAG INJ SC/IM CPT-4: 36316 04/18/2017 THER/PROPH/DIAG INJ SC/IM CPT-4: 57712 04/06/2017 ADMIN INFLUENZA VIRUS VAC CPT-4: G0008 03/22/2017 FLU VACC PRSV FREE INC ANTIG CPT-4: 94336 03/22/2017 THER/PROPH/DIAG INJ SC/IM CPT-4: 21399 03/09/2017 THER/PROPH/DIAG INJ SC/IM CPT-4: 82376 02/23/2017 THER/PROPH/DIAG INJ SC/IM CPT-4: 04842 02/09/2017 THER/PROPH/DIAG INJ SC/IM CPT-4: 18648 01/23/2017 THER/PROPH/DIAG INJ SC/IM CPT-4: 71323 01/10/2017 THER/PROPH/DIAG INJ SC/IM CPT-4: 59562 12/28/2016 THER/PROPH/DIAG INJ SC/IM CPT-4: 98823 12/14/2016 THER/PROPH/DIAG INJ SC/IM CPT-4: 04844 11/24/2016 URINALYSIS NONAUTO W/O SCOPE CPT-4: 24945 11/07/2016 THER/PROPH/DIAG INJ SC/IM CPT-4: 10724 11/07/2016 THER/PROPH/DIAG INJ SC/IM CPT-4: 89794 10/24/2016 THER/PROPH/DIAG INJ SC/IM CPT-4: 52278 09/29/2016 THER/PROPH/DIAG INJ SC/IM CPT-4: 35378 08/29/2016 THER/PROPH/DIAG INJ SC/IM CPT-4: 38831 08/04/2016 THER/PROPH/DIAG INJ SC/IM CPT-4: 77773 07/21/2016 THER/PROPH/DIAG INJ SC/IM CPT-4: 68395 07/05/2016 THER/PROPH/DIAG INJ SC/IM CPT-4: 01440 06/22/2016 URINALYSIS NONAUTO W/O SCOPE CPT-4: 50462 06/22/2016 THER/PROPH/DIAG INJ SC/IM CPT-4: 94699 06/09/2016 PPPS, SUBSEQ VISIT CPT -4: G0439 05/30/2016 ADMIN PNEUMOCOCCAL VACCINE SNOMED CT: [id number] CPT-4: G0009 05/25/2016 Pneumococcal Polysaccharide Vaccine, 23-Valent, Ad CPT-4: 81392 05/25/2016 THER/PROPH/DIAG INJ SC/IM CPT-4: 86624 05/25/2016 THER/PROPH/DIAG INJ SC/IM CPT-4: 61363 05/10/2016 TRIAMCINOLONE ACET INJ NOS CPT-4: J3301 04/26/2016 VITAMIN B12 INJECTION CPT-4: J3420 04/26/2016 THER/PROPH/DIAG INJ SC/IM CPT-4: 16722 04/11/2016 THER/PROPH/DIAG INJ SC/IM CPT-4: 22470 03/31/2016 ADMIN INFLUENZA VIRUS VAC CPT-4: G0008 03/15/2016 FLU VACC 4 STEPHANIE 3 YRS PLUS IM SNOMED CT: [id number] CPT-4: 96165 03/15/2016 THER/PROPH/DIAG INJ SC/IM CPT-4: 49272 02/25/2016 THER/PROPH/DIAG INJ SC/IM CPT-4: 76215 02/02/2016 THER/PROPH/DIAG INJ SC/IM CPT-4: 37348 01/18/2016 VITAMIN B12 INJECTION CPT-4: J3420 12/29/2015 THER/PROPH/DIAG INJ SC/IM CPT-4: 28689 12/29/2015 THER/PROPH/DIAG INJ SC/IM CPT-4: 58434 12/08/2015 THER/PROPH/DIAG INJ SC/IM CPT-4: 18902 11/23/2015 URINALYSIS NONAUTO W/O SCOPE CPT-4: 84311 11/23/2015 THER/PROPH/DIAG INJ SC/IM CPT-4: 86892 11/11/2015 THER/PROPH/DIAG INJ SC/IM CPT-4: 15851 10/29/2015 THER/PROPH/DIAG INJ SC/IM CPT-4: 10424 10/12/2015 VITAMIN B12 INJECTION CPT-4: J3420 10/12/2015 THER/PROPH/DIAG INJ SC/IM CPT-4: 13153 09/29/2015 THER/PROPH/DIAG INJ SC/IM CPT-4: 45446 09/17/2015 THER/PROPH/DIAG INJ SC/IM CPT-4: 15544 09/03/2015 THER/PROPH/DIAG INJ SC/IM CPT-4: 62184 08/17/2015 THER/PROPH/DIAG INJ SC/IM CPT-4: 47540 08/06/2015 THER/PROPH/DIAG INJ SC/IM CPT-4: 44044 07/22/2015 THER/PROPH/DIAG INJ SC/IM CPT-4: 79081 07/08/2015 THER/PROPH/DIAG INJ SC/IM CPT-4: 37525 06/23/2015 THER/PROPH/DIAG INJ SC/IM CPT-4: 64398 06/08/2015 THER/PROPH/DIAG INJ SC/IM CPT-4: 00160 05/27/2015 DESTRUCT PREMALG LESION CPT-4: 57945 05/19/2015 DESTRUCT PREMALG LES 2-14 CPT-4: 77702 05/19/2015 THER/PROPH/DIAG INJ SC/IM CPT-4: 60077 05/12/2015 VITAMIN B12 INJECTION CPT-4: J3420 05/12/2015 THER/PROPH/DIAG INJ SC/IM CPT-4: 03903 04/30/2015 VITAMIN B12 INJECTION CPT-4: J3420 04/30/2015 THER/PROPH/DIAG INJ SC/IM CPT-4: 57012 04/16/2015 THER/PROPH/DIAG INJ SC/IM CPT-4: 27875 04/02/2015 VITAMIN B12 INJECTION CPT-4: J3420 04/02/2015 THER/PROPH/DIAG INJ SC/IM CPT-4: 93362 03/18/2015 THER/PROPH/DIAG INJ SC/IM CPT-4: 36428 03/03/2015 THER/PROPH/DIAG INJ SC/IM CPT-4: 99200 02/18/2015 THER/PROPH/DIAG INJ SC/IM CPT-4: 40882 02/04/2015 VITAMIN B12 INJECTION CPT-4: J3420 02/04/2015 THER/PROPH/DIAG INJ SC/IM CPT-4: 04856 01/22/2015 THER/PROPH/DIAG INJ SC/IM CPT-4: 26128 01/08/2015 VITAMIN B12 INJECTION CPT-4: J3420 01/08/2015 THER/PROPH/DIAG INJ SC/IM CPT-4: 80674 12/25/2014 VITAMIN B12 INJECTION CPT-4: J3420 12/25/2014 THER/PROPH/DIAG INJ SC/IM CPT-4: 12311 12/10/2014 VITAMIN B12 INJECTION CPT-4: J3420 12/10/2014 THER/PROPH/DIAG INJ SC/IM CPT-4: 72768 11/26/2014 VITAMIN B12 INJECTION CPT-4: J3420 11/26/2014 THER/PROPH/DIAG INJ SC/IM CPT-4: 63313 11/12/2014 VITAMIN B12 INJECTION CPT-4: J3420 11/12/2014 THER/PROPH/DIAG INJ SC/IM CPT-4: 09423 10/28/2014 Vital Signs Date Vital 12/12/2017 Blood Pressure 1: 126/74 Code : 8480-6 BMI: 27.4 Code : 99851-0 Heart Rate 1 : 83 bpm Height: 5'6" SpO2: 98% Weight: 170 lbs 12/04/2017 Blood Pressure 1: 104/68 Code : 8480-6 BMI: 28.2 Code : 61349-5 Heart Rate 1 : 85 bpm Height: 5'6" SpO2: 95% Weight: 175 lbs 11/20/2017 Blood Pressure 1: 130/68 Code : 8480-6 BMI: 28.4 Code : 86997-0 Heart Rate 1 : 80 bpm Height: 5'6" SpO2: 99% Weight: 176 lbs 11/02/2017 Height: 5'6" 09/15/2017 Blood Pressure 1: 134/74 Code : 8480-6 BMI: 28.4 Code : 11152-7 Heart Rate 1 : 88 bpm Height: 5'6" SpO2: 98% Weight: 176 lbs 09/07/2017 Blood Pressure 1: 124/64 Code : 8480-6 Heart Rate 1: 90 bpm Height: SpO2: 97% Weight: 08/30/2017 Blood Pressure 1: 140/76 Code : 8480-6 BMI: 28.4 Code : 35017-3 Heart Rate 1 : 90 bpm Height: 5'6" SpO2: 94% Weight: 176 lbs 07/06/2017 Blood Pressure 1: 132/66 Code : 8480-6 BMI: 29.4 Code : 78076-4 Heart Rate 1 : 85 bpm Height: 5'6" SpO2: 97% Weight: 182 lbs 06/20/2017 Blood Pressure 1: 134/86 Code : 8480-6 Heart Rate 1: 90 bpm Height: SpO2: 98% Weight: 06/05/2017 BMI: 29.1 Code: 65370-0 Height: 5'6" Weight: 180 lbs 05/25/2017 Blood Pressure 1: 126/76 Code : 8480-6 BMI: 29.1 Code : 90578-7 Heart Rate 1 : 77 bpm Height: 5'6" SpO2: 97% Weight: 180 lbs 03/23/2017 Blood Pressure 1: 142/84 Code : 8480-6 BMI: 29.1 Code : 62012-2 Heart Rate 1 : 91 bpm Height: 5'6" SpO2: 97% Weight: 180 lbs 01/23/2017 Blood Pressure 1: 150/90 Code : 8480-6 BMI: 29.9 Code : 36290-7 Heart Rate 1 : 81 bpm Height: 5'6" SpO2: 97% Weight: 185 lbs 11/02/2016 Blood Pressure 1: 148/78 Code : 8480-6 BMI: 29.7 Code : 35348-9 Heart Rate 1 : 87 bpm Height: 5'6" SpO2: 97% Weight: 184 lbs 09/29/2016 Blood Pressure 1: 128/78 Code : 8480-6 BMI: 29.7 Code : 29995-3 Heart Rate 1 : 78 bpm Height: 5'6" SpO2: 98% Weight: 184 lbs 07/26/2016 Blood Pressure 1: 138/72 Code : 8480-6 BMI: 30.0 Code : 99516-7 Heart Rate 1 : 85 bpm Height: 5'6" SpO2: 97% Weight: 186 lbs 05/30/2016 Blood Pressure 1: 132/76 Code : 8480-6 BMI: 30.0 Code : 87481-5 Heart Rate 1 : 80 bpm Height: 5'6" SpO2: 98% Waist Measure (cm): 99 cm Weight: 186 lbs 05/25/2016 Blood Pressure 1: 132/76 Code : 8480-6 BMI: 30.0 Code : 27894-2 Heart Rate 1 : 80 bpm Height: 5'6" SpO2: 96% Weight: 186 lbs 02/25/2016 Blood Pressure 1: 110/64 Code : 8480-6 Heart Rate 1: 82 bpm Height: SpO2: 96% Weight: 01/25/2016 Blood Pressure 1: 118/70 Code : 8480-6 BMI: 30.0 Code : 87500-6 Heart Rate 1 : 78 bpm Height: 5'6" SpO2: 97% Weight: 186 lbs 11/11/2015 Blood Pressure 1: 128/82 Code : 8480-6 BMI: 29.2 Code : 87427-1 Heart Rate 1 : 86 bpm Height: 5'6" SpO2: 96% Temperature: 36.4 (C) / 97.6 (F) Weight: 181 lbs 10/12/2015 Blood Pressure 1: 118/70 Code : 8480-6 BMI: 29.2 Code : 00689-9 Heart Rate 1 : 81 bpm Height: 5'6" SpO2: 95% Weight: 181 lbs 09/03/2015 Blood Pressure 1: 138/78 Code : 8480-6 BMI: 29.9 Code : 46550-9 Heart Rate 1 : 88 bpm Height: 5'6" SpO2: 97% Weight: 185 lbs 05/19/2015 Blood Pressure 1: 146/78 Code : 8480-6 BMI: 30.0 Code : 36966-7 Heart Rate 1 : 66 bpm Height: 5'6" SpO2: 97% Weight: 186 lbs 05/12/2015 Blood Pressure 1: 120/70 Code : 8480-6 BMI: 29.9 Code : 35913-4 Heart Rate 1 : 89 bpm Height: 5'6" SpO2: 95% Weight: 185 lbs 01/13/2015 Blood Pressure 1: 140/90 Code : 8480-6 BMI: 30.3 Code : 28693-2 Heart Rate 1 : 84 bpm Height: 5'6" SpO2: 95% Weight: 188 lbs 12/16/2014 Blood Pressure 1: 140/82 Code : 8480-6 BMI: 29.5 Code : 77108-3 Heart Rate 1 : 86 bpm Height: 5'6" Weight: 183 lbs Functional Status No Functional Status data History of Present Illness Symptom Name Status Result Effective Date Notes cough Onset and Resolution sudden in onset 12/12/2017 None cough Onset of Symptom 3 weeks ago 12/12/2017 None cough Frequency of Episodes daily 12/12/2017 None cough Quality acute None cough Quality intermittent 12/12/2017 None cough Quality productive 12/12/2017 None cough Frequency of Episodes decreasing 12/12/2017 None cough Pertinent Findings chills 12/12/2017 "all the time" cough Pertinent Findings weakness 12/12/2017 None cough Pertinent Findings sputum production 12/12/2017 None cough Pertinent Findings nausea 12/12/2017 None shortness of breath Quality breathlessness 12/04/2017 None shortness of breath Onset and Resolution sudden in onset 12/04/2017 None shortness of breath Onset of Symptom 2 weeks ago 12/04/2017 None cough Location in the lung 12/04/2017 None cough Quality constant 12/04/2017 None cough Quality productive 12/04/2017 None cough Onset and Resolution sudden in onset 12/04/2017 None cough Frequency of Episodes daily 12/04/2017 None cough Onset of Symptom 2 weeks ago 12/04/2017 None cough Quality acute None cough Quality intermittent 11/20/2017 None cough Quality productive 11/20/2017 None cough Onset and Resolution ongoing 11/20/2017 None cough Onset of Symptom 5 months ago 11/20/2017 None cough Frequency of Episodes daily 11/20/2017 None cough Pertinent Findings chills 11/20/2017 None cough Pertinent Findings sputum production 11/20/2017 (white) cough Pertinent Findings post nasal drip 11/20/2017 None hypertension Quality primary hypertension 11/20/2017 None hypertension Onset and Resolution ongoing 11/20/2017 None hypertension Onset of Symptom during adulthood 11/20/2017 None hypertension Blood Pressure Values not checking blood pressure at home 11/20/2017 None hypertension Pertinent Findings Denies dizziness 11/20/2017 None hypertension Pertinent Findings dyspnea 11/20/2017 None hypertension Pertinent Findings edema 11/20/2017 None hypertension Quality stable 11/20/2017 None hypertension Quality chronic 11/20/2017 None hypertension Alleviating Factors medication 11/20/2017 None sinus congestion Onset and Resolution sudden in onset 09/15/2017 None sinus congestion Onset of Symptom 2 days ago 09/15/2017 None sinus congestion Pertinent Findings cough 09/15/2017 None sinus congestion Pertinent Findings decreased energy level 09/15/2017 None sinus congestion Pertinent Findings hoarseness 09/15/2017 None sinus congestion Location on both sides 09/15/2017 None sinus congestion Quality constant 09/15/2017 None sinus congestion Quality fullness 09/15/2017 None chest congestion Quality constant 09/15/2017 None chest congestion Quality thick secretions 09/15/2017 None chest congestion Onset and Resolution sudden in onset 09/15/2017 None chest congestion Onset of Symptom 1 weeks ago 09/15/2017 None sinus congestion Severity mild 09/15/2017 None sinus congestion Frequency of Episodes increasing 09/15/2017 None sinus congestion Significant Medical Conditions allergic rhinitis 09/15/2017 None sinus congestion Triggers no known associated factors 09/15/2017 None skin lesion Onset and Resolution sudden in onset 09/07/2017 None skin lesion Onset of Symptom 2 days ago 09/07/2017 None skin lesion Location left arm 09/07/2017 None skin lesion Quality enlarging 09/07/2017 None sinus congestion Quality constant 08/30/2017 None sinus congestion Quality fullness 08/30/2017 None sinus congestion Quality pressure 08/30/2017 None sinus congestion Onset and Resolution sudden in onset 08/30/2017 None sinus congestion Onset of Symptom 2 weeks ago 08/30/2017 None sinus congestion Frequency of Episodes daily 08/30/2017 None sore throat Location diffusely 08/30/2017 None sore throat Quality constant 08/30/2017 None sore throat Onset and Resolution sudden in onset 08/30/2017 None earache Location both ears 08/30/2017 None Hospital Follow Up _ pneumonia 07/06/2017 None [...] data Encounters Encounter Performer Location Codes Date ([id number] EST. PATIENT, LEVEL III Diagnosis: Nausea[ICD10: R11.0] Diagnosis: Cough[ICD10: R05] Diagnosis: 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 factor deficiency[ ICD10: D51.0] Janet Vega MD, [facility] CPT-4: 11204 12/12/2017 ([id number]) 56978 EST. PATIENT, LEVEL IV Diagnosis: Acute bronchitis due to Hemophilus influenzae[ICD10: J20.1] Diagnosis: Cough[ICD10: R05] Yarely Vega MD, [facility] CPT-4: 80510 12/04/2017 ([id number]) 73167 EST. PATIENT, LEVEL IV Diagnosis: Essential (primary) hypertension[ICD10: I10] Diagnosis: Cough[ICD10: R05] Diagnosis: Chronic atrial fibrillation[ICD10: I48.2] Yarely Vega MD, [facility] CPT-4: 55468 11/20/2017 ([id number]) 74386 EST. PATIENT, LEVEL III Diagnosis: Cough[ICD10: R05] Diagnosis: Acute upper respiratory infection, unspecified[ICD10: J06.9] Janet Vega MD, [facility] CPT-4: 25893 09/15/2017 28137 EST. PATIENT, LEVEL III Diagnosis: Laceration without foreign body of right forearm, initial encounter[ ICD10: S51.811A] Diagnosis: Other vitamin B12 deficiency anemias[ICD10: D51.8] Brianna Vega MD, [facility] CPT-4: 30790 09/07/2017 ([id number]) 00671 EST. PATIENT, LEVEL IV Diagnosis: Chronic atrial fibrillation[ICD10: I48.2] Diagnosis: Other allergic rhinitis[ICD10: J30.89] Diagnosis: Encounter for therapeutic drug level monitoring[ICD10: Z51.81] Yarely Vega MD, [facility] CPT-4: 15703 08/30/2017 ([id number]) 72788 EST. PATIENT, LEVEL IV Diagnosis: Atrophy of thyroid (acquired)[ICD10: E03.4] Diagnosis: Cough[ICD10: R05] Diagnosis: Laceration without foreign body of left forearm, initial encounter[ ICD10: S51.812A] Diagnosis: Candidiasis of skin and nail[ICD10: B37.2] Diagnosis: Other vitamin B12 deficiency anemias[ICD10: D51.8] Diagnosis: Slow transit constipation[ICD10: K59.01] Yarely Vega MD, [facility] CPT-4: 49952 07/06/2017 44421 EST. PATIENT, LEVEL III Diagnosis: Other vitamin B12 deficiency anemias[ICD10: D51.8] Diagnosis: Acute laryngopharyngitis[ICD10: J06.0] Diagnosis: Other allergic rhinitis[ICD10: J30.89] Brianna Vega MD, [facility] CPT-4: 05725 06/20/2017 ([id number]) 05714 EST. PATIENT, LEVEL IV Diagnosis: Essential (primary) hypertension[ICD10: I10] Diagnosis: Chronic atrial fibrillation[ICD10: I48.2] Diagnosis: Atrophy of thyroid (acquired)[ICD10: E03.4] Diagnosis: 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 factor deficiency[ ICD10: D51.0] Yarely Vega MD, [facility] CPT-4: 55049 05/25/2017 ([id number]) 26616 EST. 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 PATIENT, LEVEL IV Diagnosis: Type 2 diabetes mellitus without complications[ICD10: E11.9] Diagnosis: Essential (primary) hypertension[ICD10: I10] Diagnosis: Headache[ICD10: R51] Diagnosis: Atrophy of thyroid (acquired)[ICD10: E03.4] Diagnosis: Vitamin B12 deficiency anemia, unspecified[ICD10: D51.9] Yarely Vega MD, [facility] CPT-4: 09798 01/23/2017 15172 EST. PATIENT, LEVEL III Diagnosis: Low back pain[ICD10: M54.5] Diagnosis: Pain in thoracic spine[ICD10: M54.6] Brianna Vega MD, [facility] CPT-4: 58836 11/02/2016 ([id number]) 70946 EST. PATIENT, LEVEL IV Diagnosis: Essential (primary) hypertension[ICD10: I10] Diagnosis: Other vitamin B12 deficiency anemias[ICD10: D51.8] Diagnosis: Generalized abdominal pain[ICD10: R10.84] Yarely Vega MD, [facility] CPT-4: 34616 09/29/2016 ([id number]) 94203 EST. PATIENT, LEVEL IV Diagnosis: Essential (primary) hypertension[ICD10: I10] Yarely Vega MD, [facility] CPT-4: 11602 07/26/2016 ([id number]) 28315 EST. PATIENT, LEVEL IV Diagnosis: Benign lipomatous neoplasm of skin and subcutaneous tissue of right leg[ICD10: D17.23] Diagnosis: Pain in right ankle and joints of right foot[ICD10: M25.571] Diagnosis: Encounter for immunization[ICD10: Z23] Diagnosis: Vitamin B12 deficiency anemia, unspecified[ICD10: D51.9] Yarely Vega MD, [facility] CPT-4: 79114 05/25/2016 60045 EST. PATIENT, LEVEL III Diagnosis: Other chest pain[ICD10: R07.89] Diagnosis: Other vitamin B12 deficiency anemias[ICD10: D51.8] Brianna Vega MD, [facility] CPT-4: 19862 02/25/2016 ([id number]) 17301 EST. 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 PATIENT, LEVEL III Diagnosis: Other vitamin B12 deficiency anemias[ICD10: D51.8] Diagnosis: Acute nasopharyngitis [common cold][ICD10: J00] Diagnosis: Other allergic rhinitis[ICD10: J30.89] Brianna Vega MD, [facility] CPT-4: 54063 11/11/2015 ([id number]) 46776 EST. PATIENT, LEVEL IV Diagnosis: Essential tremor[ICD10: G25.0] Diagnosis: Chronic fatigue, unspecified[ICD10: R53.82] Diagnosis: Other hypersomnia[ICD10: G47.19] Diagnosis: Essential (primary) hypertension[ICD10: I10] Yarely Vega MD, [facility] CPT-4: 16361 10/12/2015 ([id number]) 55090 EST. PATIENT, LEVEL IV Diagnosis: Essential (primary) hypertension[ICD10: I10] Diagnosis: Chronic atrial fibrillation[ICD10: I48.2] Diagnosis: Abnormal levels of other serum enzymes[ICD10: R74.8] Diagnosis: Type 2 diabetes mellitus without complications[ICD10: E11.9] Diagnosis: Vitamin B12 deficiency anemia, unspecified[ICD10: D51.9] Yarely Vega MD, [facility] CPT-4: 07196 09/03/2015 ([id number]) 55082 EST. PATIENT, LEVEL III Diagnosis: Nausea[ICD10: R11.0] Diagnosis: Essential tremor[ICD10: G25.0] Diagnosis: Actinic keratosis[ICD10: L57.0] Yarely Vega MD, [facility] CPT- 4: 16373 05/19/2015 ([id number]) 72885 EST. PATIENT, LEVEL IV Diagnosis: Vitamin B12 deficiency anemia, unspecified[ICD10: D51.9] Diagnosis: Chronic atrial fibrillation[ICD10: I48.2] Diagnosis: Headache[ICD10: R51] Diagnosis: Chronic fatigue, unspecified[ICD10: R53.82] Diagnosis: Cervicalgia[ICD10: M54.2] Yarely Vega MD, [facility] CPT-4: 65086 05/12/2015 ([id number]) 26564 EST. PATIENT, LEVEL IV Diagnosis: ESSENTIAL HYPERTENSION[ICD9: 401.9] Diagnosis: Afib[ICD9: 427.31] Diagnosis: Anxiety[ICD9: 300.00] Diagnosis: Insomnia[ICD9: 780.52] [facility] CPT-4: 23667 01/13/2015 ([id number]) OFFICE VISIT, NEW - LEVEL 4 Diagnosis: Hypothyroidism[ICD9: 244.9] Diagnosis: DIABETES TYPE II[ICD9: 250.00] Diagnosis: ESSENTIAL HYPERTENSION[ICD9: 401.9] Diagnosis: Afib[ICD9: 427.31] Diagnosis: Anxiety[ICD9: 300.00] Diagnosis: B12 deficiency[ICD9: 266.2] Janet Vega MD, [facility] CPT-4: 41856 12/16/2014 Plan of Care Planned Activity Notes Codes Status Date Patient Education: Patient Medication Summary Completed 02/08/2018 Appointment: Injection 01/24/2018 Patient Education: Patient Medication Summary Completed 01/24/2018 Appointment: Injection 01/10/2018 Patient Education: Patient Medication Summary Completed 01/10/2018 Appointment: Injection 12/27/2017 Patient Education: Patient Medication Summary Completed 12/27/2017 Appointment: Yarely Vega WPtel: [facility] (15 min) Moderate 12/26/2017 Visit Plan: Lxohss-cpjejzprq-xbjbjwia protonix-follow up with Dr Navarro as scheduled Cough-recent bronchitis-symptoms improved-call if symptoms do not completely resolve 12/12/2017 Appointment: Janet Fam WPtel: [address] [place], [place] [phone] (15 min) Moderate 12/12/2017 Patient Education: Patient Medication Summary Completed 12/12/2017 Visit Plan: Bronchitis - acute case of bronchitis identified. Pt has been given antibiotics, breathing treatments as appropriate, and pt has been instructed to call if symptoms are not improved, or if symptoms acutely worsen. Cough - rx for antibiotics as well as cough medication. 12/04/2017 Appointment: Yarely Vega WPtel: [facility]5 [facility] (15 min) Moderate 12/04/2017 Patient Education: Patient Medication Summary Completed 12/04/2017 Appointment: Injection 12/01/2017 Patient Education: Patient Medication Summary Completed 12/01/2017 Visit Plan: Hypertension - well controlled - continue with current medications, continue with no added salt diet. Pt has been encouraged to exercise daily. The pt has been advised to call the office if there are any acute concerns about change in blood pressure readings at home. Fatigue/malaise -Pt was advsied to ask the Teletypesetter Monitor the following: ask the heart doctor if there is an alternative to the amiodarone - you may be having side effects from the medication causing you to have pruritus (itching) and feeling like you have body aches, muscle aches, joint pain, fatigue, weight loss (decreased appetite) , and pneumonia like symptoms. Atrial Fibrillation - pt on chronic anticoagulation and is currently rate controlled. The pt is to have labs done as appropriate to monitor medication levels and is to report if they start to feel as if their heart rate is becoming uncontrolled. 11/20/2017 Appointment: Yarely Vega WPtel: [phone] [facility] (15 min) Moderate 11/20/2017 Patient Education: Patient Medication Summary Completed 11/20/2017 Appointment: Injection 11/17/2017 Patient Education: Patient Medication Summary Completed 11/17/2017 Appointment: Injection 11/02/2017 Patient Education: Patient Medication Summary Completed 11/02/2017 Appointment: Injection 10/20/2017 Patient Education: Patient Medication Summary Completed 10/20/2017 Appointment: Injection 10/06/2017 Patient Education: Patient Medication Summary Completed 10/06/2017 Appointment: Injection 09/21/2017 Patient Education: Patient Medication Summary Completed 09/21/2017 Visit Plan: URI - Pt advised to increase fluids, vitamin C. Discussed natural and expected course of this diagnosis and need to alert me if symptoms do not follow expected course, or if any worse. 09/15/2017 Appointment: Janet Fam WPtel: [phone] [place] (15 min) Moderate 09/15/2017 Patient Education: Patient Medication Summary Completed 09/15/2017 Appointment: Yarely Vega WPtel: [phone] [facility] [place] (15 min) Moderate 09/11/2017 Visit Plan: Skin tear and Cellulitis - The patient was instructed in appropriate wound care. The patient was instructed to use the antibiotic ointment as per RX. The patient is to call for any change in symptoms , increase in size of the lesion, increase in pain, worsening redness, warmth, discharge. 09/07/2017 Appointment: Brianna Otoole WPtel: [phone] [facility] (10 min) Simple 09/07/2017 Patient Education: Patient Medication Summary Completed 09/07/2017 Visit Plan: Lipoma - left ankle - talk to dr. barnes about possible surgery/laser for treatment of lipoma. Fatigue/malaise -Pt was advsied to ask the Teletypesetter Monitor the following: ask the heart doctor if there is an alternative to the amiodarone - you may be having side effects from the medication causing you to have pruritus (itching) and feeling like you have body aches, muscle aches, joint pain, fatigue, weight loss (decreased appetite) , and pneumonia like symptoms. Congestion - claritin 10mg daily. 08/30/2017 Appointment: Yarely Vega WPtel: [facility] (15 min) Moderate 08/30/2017 Patient Education: Patient Medication Summary Completed 08/30/2017 Appointment: Injection 08/24/2017 Appointment: Yarely Vega WPtel: [phone] [facility] (15 min) Moderate 08/24/2017 Patient Education: Patient Medication Summary Completed 08/24/2017 Visit Plan: Hypothyroidism - pt with chronic [...] and mucinex 07/06/2017 Appointment: [phone] (15 min) Moderate 07/06/2017 Patient Education: Patient [...] spray. 06/20/2017 [phone] (15 min) Moderate 06/20/2017 Patient Education: Patient [...] Injection 06/05/2017 Appointment: [phone] [facility] [facility] - Annual Wellness Visit 06/05/2017 Patient [...] control. 05/25/2017 Appointment: [phone] (15 min) Moderate 05/25/2017 Patient Education: Patient [...] wall. Fatigue - pt to discuss with Teletypesetter Monitor about the possibility of amiodarone causing her fatigue/malaise. 03/23/2017 Appointment: Gary Y[facility]ly [facility]el[phone] [facility] [place] (15 min) Moderate 03/23/2017 Patient Education: Patient Medication Summary Completed 03/23/2017 Appointment: Injection 03/22/2017 Patient Education: Patient Medication Summary Completed 03/22/2017 Appointment: Injection 03/09/2017 Patient Education: Patient Medication Summary Completed 03/09/2017 Appointment: Injection 02/23/2017 Patient Education: Patient Medication Summary Completed 02/23/2017 Appointment: Nurse Visit 02/09/2017 Appointment: Injection 02/09/2017 Patient Education: Patient Medication Summary Completed [...] twice daily. 01/23/2017 Appointment: Yare[facility]el[phone] [facility] (15 min) Moderate 01/23/2017 Patient Education: Patient [...] improve. 11/02/2016 Appointment: [phone] ([facility]) Moderate 11/02/2016 Patient Education: Patient [...] carafate 09/29/2016 Appointment: Yarely Vega WPtel: [phone] [facility] [place] (15 min) Moderate 09/29/2016 Patient Education: Patient Medication Summary Completed 09/29/2016 Appointment: [phone] [place] ([place] min) Moderate 09/27/2016 Appointment: [phone] [place] (15 min[place] Moderate 09/20/2016 Appointment: [phone] [place] (15 min) Moderate 09/20/2016 Patient Education: Patient Medication Summary Completed 09/06/2016 Appointment: [phone] [place] (15 min) Moderate 08/30/2016 Appointment: Injection [...] acute concerns. 07/26/2016 Appointment: [phone] (15 min) Moderate 07/26/2016 Patient Education: Patient [...] surrogate. 05/30/2016 App[facility]ment: [phone] [facility] [facility] - Annual Wellness Visit 05/30/2016 Patient [...] bedtime 05/25/2016 Appointment: [facility]ega [phone] (15 min) Moderate 05/25/2016 Patient Education: Patient Medication Summary Completed 05/25/2016 Patient Education: Obesity Completed 05/25/2016 Care Plan: Referral Order SNOMED-CT : [id number] Pending 05/25/2016 Appointment: Injection 05/10/2016 Patient Education: Patient Medication Summary Completed 05/10/2016 Appointment: Injection 04/26/2016 Patient Education: Patient Medication Summary Completed 04/26/2016 Appointment: Injection 04/11/2016 Patient Education: Patient Medication Summary Completed 04/11/2016 Appointment: Injection 03/31/2016 Patient Education: Patient Medication Summary Completed 03/31/2016 Patient Education: Patient Medication Summary Completed 03/22/2016 Care Plan: [facility] [address]-9 Pending 03/22/2016 Appointment: Injection 03/15/2016 Patient Education: [...] any concerns. 02/25/2016 App[facility]ment: [phone] (15 min) Moderate 02/25/2016 Patient Education: Patient [...] the patients recent sleep study - recommended [place] home patient eval of pt - nocturnal [...] the patients recent sleep study - recommended [place] home patient eval of pt - nocturnal [...] case with Faiza's daughter who had left [facility]. She is interested in looking at assisted living facilities for her mom as Faiza's family is for assisted living placement sooner rather than later. 10/12/2015 Appointment: Yarely Vega WPtel: [facility] (15 min) Moderate 10/12/2015 Patient Education: Patient [...] Completed 08/17/2015 Appointment: Yarely Vega [facility]el: [phone] [facility] (15 min) Moderate 08/11/2015 Appointment: Injection 08/06/2015 [...] 2 05/19/2015 Appointment: [facility]ega [facility]el[phone] (30 min) Complex 05/19/2015 Patient Education: Patient [...] prn alprazolam. 01/13/2015 Appointment: Yarely Vega WPtel: [address] [place] [id number] (15 min) Moderate 01/13/2015 Patient Education: Patient [...] medications. 12/16/2014 App[facility]ment: [phone] [place] New Patient 12/16/2014 Patient Education: Patient Medication Summary Completed 12/16/2014 Appointment: Injection 12/10/2014 Patient Education: Patient Medication Summary Completed 12/10/2014 Appointment: Injection 11/26/2014 Patient Education: Patient Medication Summary Completed 11/26/2014 Patient Education: Patient Medication Summary Completed 11/12/2014 Appointment: Nurse Visit 10/28/2014 Patient Education: Patient Medication Summary Completed 10/28/2014 Appointment: Injection 10/14/2014 Referral: Genaro Bravo Referral Appointment Requested Instructions Comment . Orzlhe-janrjygqd-aeitlayn protonix-follow up with Dr Navarro as scheduled Cough-recent bronchitis-symptoms improved-call if symptoms do not completely resolve . Medicare Exam - today we discussed [...] is worsening or does not improve. . Atrial Fibrillation - pt on chronic [...] directed, and understands the consequences of over-medication. ask the heart doctor if there is an alternative to the amiodarone - you may be having side effects from the medication causing you to have pruritus (itching) and feeling like you have body aches, muscle aches, joint pain, fatigue, weight loss (decreased appetite), and pneumonia like symptoms. for the congestion - get claritin 10mg daily. . Hypertension - well controlled - continue with current medications, continue with no added salt diet. Pt has been encouraged to exercise daily. The pt has been advised to call the office if there are any acute concerns about change in blood pressure readings at home. Fatigue/malaise -Pt was advsied to ask the Teletypesetter Monitor the following: ask the heart doctor if there is an alternative to the amiodarone - you may be having side effects from the medication causing you to have pruritus (itching) and feeling like you have body aches, muscle aches, joint pain, fatigue, weight loss (decreased appetite), and pneumonia like symptoms. Atrial Fibrillation - pt on chronic anticoagulation and is currently rate controlled. The pt is to have labs done as appropriate to monitor medication levels and is to report if they start to feel as if their heart rate is becoming uncontrolled. . Skin tear and Cellulitis - The patient was instructed in appropriate wound care. The patient was instructed to use the antibiotic ointment as per RX. The patient is to call for any change in symptoms, increase in size of the lesion, increase in pain, worsening redness, warmth, discharge. . Hypertension - well controlled - continue [...] case with Faiza's daughter who had left [facility]. She is interested in looking at assisted [...] if symptoms return, or with any concerns. ask the heart doctor if there is an alternative to the amiodarone - you may be having side effects from the medication causing you to have pruritus (itching) and feeling like you have body aches, muscle aches, joint pain, fatigue, weight loss (decreased appetite), and pneumonia like symptoms. for the congestion - get claritin 10mg daily. . Lipoma - left ankle - talk to dr. barnes about possible surgery/laser for treatment of lipoma. Fatigue/malaise -Pt was advsied to ask the Teletypesetter Monitor the following: ask the heart doctor if there is an alternative to the amiodarone - you may be having side effects from the medication causing you to have pruritus (itching) and feeling like you have body aches, muscle aches, joint pain, fatigue, weight loss (decreased appetite), and pneumonia like symptoms. Congestion - claritin 10mg daily. CLARITIN FLONASE KENALOG INJECTION TODAY CALL IF SYMPTOMS DO NOT RESOLVE . URI - Pt advised to increase fluids, vitamin C. Discussed natural and expected course of this diagnosis and need to alert me if symptoms do not follow expected course, or if any worse. talk to Heart doctor about possible amiodarone [...] wall. Fatigue - pt to discuss with Teletypesetter Monitor about the possibility of amiodarone causing her fatigue/malaise. Stop Keflex Start Doxycycline - probiotic while [...] spray in the nasal steroid allergy spray. melatonin can take 3mg to 10mg at [...] DOPA paperwork for health care surrogate. . Bronchitis - acute case of bronchitis identified. Pt has been given antibiotics, breathing treatments as appropriate, and pt has been instructed to call if symptoms are not improved, or if symptoms acutely worsen. Cough - rx for antibiotics as well as cough medication. womens probiotic - take one pill daily. [...] continue with current treatment plan and mucinex change priolosec to bedtime to see if [...] - cryotherapy of skin lesions x 2 Schedule thyroid ultrasound Add T3 and digoxin [...] headaches - take topamax at bedtime . Hypertension - well controlled - continue [...] the patients recent sleep study - recommended [place] home patient eval of pt - nocturnal [...] the patients recent sleep study - recommended [place] home patient eval of pt - nocturnal oxygen study - will order - if positive oxygen concentrator with humidification. increase norvasc from 5mg daily to 10mg [...] pt is to call for acute concerns. . URI - Pt advised to increase [...]
--- OUTSIDE RECORDS SUMMARY | 2018-02-16 11:50 | XMS REPORT | Continuity of Care Document ---
Author Author [facility] Organization [facility] Address Unknown Phone Unavailable Allergies Active Description Code Type Severity Reaction Onset Reported/Identified Relationship to Patient Clinical Status Yes codeine [id number] Drug Allergy Unknown N/A 09/09/2008 Yes hydrochlorothiazide [id number] Drug Allergy Unknown N/A 09/09/2008 Yes morphine [id number] Drug Allergy Unknown N/A 09/09/2008 Yes PENCILLIN [...] EGAN MD Ot 414.01 CORONARY ATHEROSCLEROSIS OF [place] CORON 12/21/2012 ARUNA EGAN MD Ot 427.0 [...] ARAGON MD Ot 414.01 CORONARY ATHEROSCLEROSIS OF [place] CORON 05/22/2014 CURT ARAGON MD Ot 416.8 [...] 300.00 ANXIETY STATE NOS 10/22/2014 [place], IADA Ibarra Ot 311 DEPRESSIVE DISORDER NEC 10/22/2014 [...] ARUNA Vale Ot V76.12 11/18/2014 MADRIGAL-ALEXANDER PA, KYEL K Ot 272.4 11/18/2014 MADRIGAL-ALEXANDER PA, KYLE [...] K Ot 786.50 12/10/2014 [place], BERTHA Dainels Ot 427.31 12/22/2014 Ot 396.3 12/22/2014 Ot [...] BERTHA Daniels Ot 427.31 01/14/2015 LUCIANO SALOMON BEATER OUT Ot 244.9 01/14/2015 LUCIANO SALOMON BEATER OUT Ot 787.20 03/10/2015 LUCIANO SALOMON BEATER OUT Ot V76.12 05/06/2015 KALIA DO, JAMES K [...] DIAPHRAGMATIC HERNIA WITHOUT OBSTRUCTION 07/27/2015 LUCIANO SALOMON BEATER OUT Ot E04.1 10/05/2015 BERTHA DHALIWAL MD Ot Z51.81 ENCOUNTER FOR THERAPEUTIC DRUG LEVEL MON 10/05/2015 BERTHA DHALIWAL MD Ot Z79.899 OTHER MAILROOM COURIER (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 THERAPY 10/08/2015 BERTHA DHALIWAL MD Ot Z51.81 ENCOUNTER FOR THERAPEUTIC DRUG LEVEL MON 10/08/2015 BERTHA DHALIWAL MD Ot Z79.899 OTHER SKILLED NURSING (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 THERAPY 10/22/2015 [place], BERTHA Daniels Ot Z51.81 ENCOUNTER FOR THERAPEUTIC DRUG LEVEL MON 10/22/2015 [place], BERTHA Daniels Ot Z79.899 OTHER MAILROOM COURIER (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 THERAPY 11/08/2015 [place]ATION, FRANCISCO [...] Saldivar Ot R06.83 SNORING 02/26/2016 NOEL ZARAGOZA [facility] SPEC Ot M54.9 DORSALGIA, UNSPECIFIED 02/26/2016 NOEL ZARAGOZA [facility] SPEC Ot R07.9 CHEST PAIN, UNSPECIFIED 02/26/2016 NOEL ZARAGOZA [facility] SPEC Ot R61 GENERALIZED HYPERHIDROSIS 02/26/2016 NOEL ZARAGOZA REG[facility]FFAIRS SPEC Ot M54.9 DORSALGIA, UNSPECIFIED 02/26/2016 NOEL ZARAGOZA REGULAT[facility] AFFAIRS SPEC Ot R07.9 CHEST PAIN, UNSPECIFIED 02/26/2016 NOEL ZARAGOZA [facility]FFAIRS SPEC Ot R61 GENERALIZED HYPERHIDROSIS 03/07/2016 Ot 611.71 [...] 427.31 ATRIAL FIBRILLATION 03/07/2016 SALOMON, LUCIANO M BEATER OUT Ot 244.9 HYPOTHYROIDISM NOS 03/07/2016 LUCIANO SALOMON BEATER OUT Ot 787.20 DYSPHAGIA, UNSPECIFIED 03/07/2016 LUCIANO SALOMON BEATER OUT Ot V76.12 OTH SCREEN MAMMO-MALIGN NEOPLASM OF [place] 03/07/2016 KYLE YANG Ot E78.2 MIXED HYPERLIPIDEMIA 03/07/2016 KYLE YANG Ot I10 ESSENTIAL (PRIMARY) HYPERTENSION 03/07/2016 KYLE YANG Ot I25.10 ATHSCL HEART DISEASE OF [place] CORONARY 03/07/2016 KYLE YANG Ot I65.23 OCCLUSION AND STENOSIS OF [place] 03/07/2016 [place], CURT Montes De Oca Ot E78.2 MIXED HYPERLIPIDEMIA 03/07/2016 CURT ARAGON MD Ot I10 ESSENTIAL (PRIMARY) HYPERTENSION 03/07/2016 CURT ARAGON MD Ot I25.10 ATHSCL HEART DISEASE OF [place] CORONARY 03/07/2016 CARTER BADILLO MD Ot M25.511 PAIN IN RIGHT SHOULDER 03/07/2016 CARTER BADILLO MD Ot M54.2 CERVICALGIA 03/07/2016 LUCIANO SALOMON BEATER OUT Ot E04.1 NONTOXIC SINGLE THYROID NODULE 03/07/2016 MINO GARCIA MD Ot R13.10 DYSPHAGIA, UNSPECIFIED 03/07/2016 MINO GARCIA MD Ot Z01.818 ENCOUNTER FOR OTHER PREPROCEDURAL EXAMIN 03/07/2016 BERTHA DHALIWAL MD Ot Z51.81 ENCOUNTER FOR THERAPEUTIC DRUG LEVEL MON 03/07/2016 BERTHA DHALIWAL MD Ot Z79.899 OTHER SKILLED NURSING (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 THERAPY 03/07/2016 NOEL ZARAGOZA APRN Ot M54.9 DORSALGIA, UNSPECIFIED 03/07/2016 NOEL ZARAGOZA APRN Ot R07.9 CHEST PAIN, UNSPECIFIED 03/07/2016 NOEL ZARAGOZA APRN Ot R61 GENERALIZED HYPERHIDROSIS 03/07/2016 NOEL ZARAGOZA APRN Ot Z12.31 ENCNTR SCREEN MAMMOGRAM FOR MALIGNANT NE 03/08/2016 NOEL ZARAGOZA APRN Ot Z12.31 ENCNTR SCREEN MAMMOGRAM FOR MALIGNANT NE 03/08/2016 NIK, NOEL M REGULATORY AFFAIRS SPEC Ot Z12.31 ENCNTR SCREEN MAMMOGRAM FOR MALIGNANT NE 03/08/2016 NOEL ZARAGOZA REGULATORY AFFAIRS SPEC Ot Z12.31 ENCNTR SCREEN MAMMOGRAM FOR MALIGNANT NE 03/17/2016 NOEL ZARAGOZA REGULATORY AFFAIRS SPEC Ot M54.9 DORSALGIA, UNSPECIFIED 03/17/2016 NOEL ZARAGOZA REGULATORY AFFAIRS SPEC Ot R07.9 CHEST PAIN, UNSPECIFIED 03/17/2016 NOEL ZARAGOZA REGULATORY AFFAIRS SPEC Ot R61 GENERALIZED HYPERHIDROSIS 03/17/2016 ONEL ZARAGOZA REGULATORY AFFAIRS SPEC Ot Z12.31 ENCNTR SCREEN MAMMOGRAM FOR MALIGNANT [...] Ot 427.31 ATRIAL FIBRILLATION 06/30/2016 LUCIANO SALOMON BEATER OUT Ot 244.9 HYPOTHYROIDISM NOS 06/30/2016 LUCIANO SALOMON BEATER OUT Ot 787.20 DYSPHAGIA, UNSPECIFIED 06/30/2016 LUCIANO SALOMON BEATER OUT Ot V76.12 OTH SCREEN MAMMO-MALIGN NEOPLASM OF [place] 06/30/2016 KYLE YANG Ot E78.2 MIXED HYPERLIPIDEMIA 06/30/2016 KYLE YANG Ot I10 ESSENTIAL (PRIMARY) HYPERTENSION 06/30/2016 KYLE YANG Ot I25.10 ATHSCL HEART DISEASE OF [place] CORONARY 06/30/2016 KYLE YANG Ot I65.23 OCCLUSION AND STENOSIS OF [place] 06/30/2016 CURT ARAGON MD Ot E78.2 MIXED HYPERLIPIDEMIA 06/30/2016 CURT ARAGON MD Ot I10 ESSENTIAL (PRIMARY) HYPERTENSION 06/30/2016 CURT ARAGON MD Ot I25.10 ATHSCL HEART DISEASE OF [place] CORONARY 06/30/2016 [place], CARTER Saldivar Ot M25.511 PAIN IN RIGHT SHOULDER 06/30/2016 CARTER BADILLO MD Ot M54.2 CERVICALGIA 06/30/2016 LUCIANO SALOMON BEATER OUT Ot E04.1 NONTOXIC SINGLE THYROID NODULE 06/30/2016 [place], MINO Ot R13.10 DYSPHAGIA, UNSPECIFIED 06/30/2016 [place], MINO Ot Z01.818 ENCOUNTER FOR OTHER PREPROCEDURAL EXAMIN 06/30/2016 BERHTA DHALIWAL MD Ot Z51.81 ENCOUNTER FOR THERAPEUTIC DRUG LEVEL MON 06/30/2016 BERTHA DAHLIWAL MD Ot Z79.899 OTHER MAILROOM COURIER (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 THERAPY 06/30/2016 NOEL ZARAGOZA REGULATORY AFFAIRS SPEC Ot M54.9 DORSALGIA, UNSPECIFIED 06/30/2016 NOEL ZARAGOZA REGULATORY AFFAIRS SPEC Ot R07.9 CHEST PAIN, UNSPECIFIED 06/30/2016 NOEL ZARAGOZA REGULATORY AFFAIRS SPEC Ot R61 GENERALIZED HYPERHIDROSIS 06/30/2016 NOEL ZARAGOZA REGULATORY AFFAIRS SPEC Ot Z12.31 ENCNTR SCREEN MAMMOGRAM FOR MALIGNANT NE 06/30/2016 Ot 780.4 DIZZINESS AND GIDDINESS 06/30/2016 Ot 786.09 RESPIRATORY ABNORM NEC 06/30/2016 Ot 786.50 CHEST PAIN NOS 06/30/2016 Ot V72.84 EXAM PRE- OPERATIVE NOS 06/30/2016 Ot V76.12 OTH SCREEN MAMMO-MALIGN NEOPLASM OF [place] 06/30/2016 Ot 793.80 UNSPEC ABNORMAL MAMMOGRAM 06/30/2016 Ot V72.84 EXAM PRE- OPERATIVE NOS 06/30/2016 JULISA NATINO, ARUNA Vale Ot 611.71 MASTODYNIA 06/30/2016 MAR[place] [...] Ot 427.31 ATRIAL FIBRILLATION 06/30/2016 LUCIANO SALOMON BEATER OUT Ot 244.9 HYPOTHYROIDISM NOS 06/30/2016 LUCIANO SALOMON BEATER OUT Ot 787.20 DYSPHAGIA, UNSPECIFIED 06/30/2016 LUCIANO SALOMON BEATER OUT Ot V76.12 OTH SCREEN MAMMO-MALIGN NEOPLASM OF [place] 06/30/2016 JACQUES QUINTANILLA KYLE K Ot E78.2 MIXED HYPERLIPIDEMIA 06/30/2016 JACQUES QUINTANILLA KYLE K Ot I10 ESSENTIAL (PRIMARY) HYPERTENSION 06/30/2016 JACQUES QUINTANILLA KYLE K Ot I25.10 ATHSCL HEART DISEASE OF [place] CORONARY 06/30/2016 JACQUES QUINTANILLA KYLE K Ot I65.23 OCCLUSION AND STENOSIS OF [place] 06/30/2016 CURT ARAGON MD Ot E78.2 MIXED HYPERLIPIDEMIA 06/30/2016 CURT ARAGON MD Ot I10 ESSENTIAL (PRIMARY) HYPERTENSION 06/30/2016 CURT ARAGON MD Ot I25.10 ATHSCL HEART DISEASE OF [place] CORONARY 06/30/2016 CARTER BADILLO MD Ot M25.511 PAIN IN RIGHT SHOULDER 06/30/2016 CARTER BADILLO MD Ot M54.2 CERVICALGIA 06/30/2016 UMMLUCIANO BEATER OUT Ot E04.1 NONTOXIC SINGLE THYROID NODULE 06/30/2016 [place], MINO Ot R13.10 DYSPHAGIA, UNSPECIFIED 06/30/2016 [place], MINO Ot Z01.818 ENCOUNTER FOR OTHER PREPROCEDURAL EXAMIN 06/30/2016 [place], BERTHA Daniels Ot Z51.81 ENCOUNTER FOR THERAPEUTIC DRUG LEVEL MON 06/30/2016 [place], BERTHA Daniels Ot Z79.899 OTHER MAILROOM COURIER (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 THERAPY 06/30/2016 NOEL ZARAGOZA REGULATORY AFFAIRS SPEC Ot M54.9 DORSALGIA, UNSPECIFIED 06/30/2016 NOEL ZARAGOZA REGULATORY AFFAIRS SPEC Ot R07.9 CHEST PAIN, UNSPECIFIED 06/30/2016 NOEL ZARAGOZA REGULATORY AFFAIRS SPEC Ot R61 GENERALIZED HYPERHIDROSIS 06/30/2016 NOEL ZARAGOZA REGULATORY AFFAIRS SPEC Ot Z12.31 ENCNTR SCREEN MAMMOGRAM FOR MALIGNANT [...] MD Ot I25.10 ATHSCL HEART DISEASE OF [place] CORONARY 08/09/2016 CARTER BADILLO MD Ot I51.7 [...] INITIAL 08/20/2016 TAD BOSS Ot Z79.899 OTHER SKILLED NURSING (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 THERAPY 08/20/2016 TAD BOSS Ot Z95.0 PRESENCE OF CARDIAC PACEMAKER 08/21/2016 TAD BOSS Ot T81.4XXA INFECTION FOLLOWING A PROCEDURE, INITIAL 08/22/2016 TAD BOSS Ot I10 ESSENTIAL (PRIMARY) HYPERTENSION 08/22/2016 TAD BOSS Ot L76.31 POSTPROC HEMATOMA OF SKIN, SUBCU FOL A D 08/22/2016 TAD BOSS Ot T81.4XXA INFECTION FOLLOWING A PROCEDURE, INITIAL 08/22/2016 TAD BOSS Ot Z79.899 OTHER SKILLED NURSING (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 THERAPY 08/22/2016 TAD BOSS Ot [...] Ot 427.31 ATRIAL FIBRILLATION 09/16/2016 LUCIANO SALOMON BEATER OUT Ot 244.9 HYPOTHYROIDISM NOS 09/16/2016 LUCIANO SALOMON BEATER OUT Ot 787.20 DYSPHAGIA, UNSPECIFIED 09/16/2016 LUCIANO SALOMON BEATER OUT Ot V76.12 OTH SCREEN MAMMO-MALIGN NEOPLASM OF [place] 09/16/2016 KYLE YANG Ot E78.2 MIXED HYPERLIPIDEMIA 09/16/2016 KYLE YANG K Ot I10 ESSENTIAL (PRIMARY) HYPERTENSION 09/16/2016 KYLE YANG Ot I25.10 ATHSCL HEART DISEASE OF [place] CORONARY 09/16/2016 KYLE YANG Ot I65.23 OCCLUSION AND STENOSIS OF [place] 09/16/2016 CURT ARAGON MD Ot E78.2 MIXED HYPERLIPIDEMIA 09/16/2016 CURT ARAGON MD Ot I10 ESSENTIAL (PRIMARY) HYPERTENSION 09/16/2016 CURT ARAGON MD Ot I25.10 ATHSCL HEART DISEASE OF [place] CORONARY 09/16/2016 CARTER BADILLO MD Ot M25.511 [...] 09/16/2016 BERTHA DHALIWAL MD Ot Z79.899 OTHER MAILROOM COURIER (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 THERAPY 09/16/2016 NOEL ZARAGOZA APRN Ot M54.9 DORSALGIA, UNSPECIFIED 09/16/2016 NOEL ZARAGOZA REGULATORY AFFAIRS SPEC Ot R07.9 CHEST PAIN, UNSPECIFIED 09/16/2016 NOEL ZARAGOZA REGULATORY AFFAIRS SPEC Ot R61 GENERALIZED HYPERHIDROSIS 09/16/2016 NOEL ZARAGOZA APRN Ot Z12.31 ENCNTR SCREEN MAMMOGRAM FOR MALIGNANT NE 09/16/2016 STAN TUCKERM, SNOW Frias Ot 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 09/16/2016 KYLE YANG Ot 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, 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 09/16/2016 CARTER BADILLO MD Ot E04.2 NONTOXIC MULTINODULAR GOITER 09/16/2016 CARTER BADILLO MD Ot I25.10 ATHSCL HEART DISEASE OF [place] CORONARY 09/16/2016 CARTER BADILLO MD Ot I51.7 [...] 09/19/2016 BERTHA DHALIWAL MD Ot Z79.899 OTHER SKILLED NURSING (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 THERAPY 10/10/2016 BERTHA DHALIWAL MD, Ot J44.9 CHRONIC OBSTRUCTIVE PULMONARY DISEASE, U 10/10/2016 BERTHA DHALIWAL MD Ot K44.9 DIAPHRAGMATIC HERNIA WITHOUT OBSTRUCTION 10/10/2016 BERTHA DHALIWAL MD Ot Z51.81 ENCOUNTER FOR THERAPEUTIC DRUG LEVEL MON 10/10/2016 BERTHA DHALIWAL MD Ot Z79.899 OTHER SKILLED NURSING (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 THERAPY 10/28/2016 ANJELICA HUBBARD MD [...] Ot 244.9 HYPOTHYROIDISM NOS 12/23/2016 LUCIANO SALOMON BEATER OUT Ot 787.20 DYSPHAGIA, UNSPECIFIED 12/23/2016 LUCIANO SALOMON BEATER OUT Ot V76.12 OTH SCREEN MAMMO-MALIGN NEOPLASM OF [place] 12/23/2016 KYLE YANG Ot E78.2 MIXED HYPERLIPIDEMIA 12/23/2016 KYLE YANG Ot I10 ESSENTIAL (PRIMARY) HYPERTENSION 12/23/2016 KYLE YANG Ot I25.10 ATHSCL HEART DISEASE OF [place] CORONARY 12/23/2016 KYLE YANG Ot I65.23 OCCLUSION AND STENOSIS OF [place] 12/23/2016 CURT ARAGON MD, Ot E78.2 MIXED HYPERLIPIDEMIA 12/23/2016 CURT ARAGON MD, Ot I10 ESSENTIAL (PRIMARY) HYPERTENSION 12/23/2016 CURT ARAGON MD Ot I25.10 ATHSCL HEART DISEASE OF [place] CORONARY 12/23/2016 CARTER BADILLO MD Ot M25.511 [...] 12/23/2016 BERTHA DHALIWAL MD Ot Z79.899 OTHER MAILROOM COURIER (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 THERAPY 12/23/2016 NOEL ZARAGOZA APRN [...] Saldivar Ot I25.10 ATHSCL HEART DISEASE OF [place] CORONARY 12/23/2016 [place], CARTER Saldivar Ot [...] Ot Z51.81 ENCOUNTER FOR THERAPEUTIC DRUG LEVEL [facility] 12/23/2016 [place], BERTHA Daniels Ot Z79.899 OTHER MAILROOM COURIER (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 THERAPY 12/29/2016 MELY METCALF DO [...] F03.90 UNSPECIFIED DEMENTIA WITHOUT BEHAVIORAL 01/11/2017 TEAMELY TURNER DO Ot F41.9 ANXIETY DISORDER, UNSPECIFIED 01/11/2017 [...] F41.9 ANXIETY DISORDER, UNSPECIFIED 03/02/2017 NOEL ZARAGOZA REGULATORY AFFAIRS SPEC Ot Z12.31 ENCNTR SCREEN MAMMOGRAM FOR MALIGNANT NE 03/08/2017 NOEL ZARAGOZA REGULATORY AFFAIRS SPEC Ot Z12.31 ENCNTR SCREEN MAMMOGRAM FOR MALIGNANT NE 03/15/2017 NOEL ZARAGOZA REGULATORY AFFAIRS SPEC Ot Z12.31 ENCNTR SCREEN MAMMOGRAM FOR MALIGNANT NE 03/30/2017 NOEL ZARAGOZA REGULATORY AFFAIRS SPEC Ot Z12.31 ENCNTR SCREEN MAMMOGRAM FOR MALIGNANT NE 04/17/2017 NOEL ZARAGOZA REGULATORY AFFAIRS SPEC Ot Z12.31 ENCNTR SCREEN MAMMOGRAM FOR MALIGNANT [...] Ot 427.31 ATRIAL FIBRILLATION 04/27/2017 LUCIANO SALOMON BEATER OUT Ot 244.9 HYPOTHYROIDISM NOS 04/27/2017 LUCIANO SALOMON BEATER OUT Ot 787.20 DYSPHAGIA, UNSPECIFIED 04/27/2017 LUCIANO SALOMON BEATER OUT Ot V76.12 OTH SCREEN MAMMO-MALIGN NEOPLASM OF [place] 04/27/2017 KYLE YANG Ot E78.2 MIXED HYPERLIPIDEMIA 04/27/2017 KYLE YANG Ot I10 ESSENTIAL (PRIMARY) HYPERTENSION 04/27/2017 KYLE YANG K Ot I25.10 ATHSCL HEART DISEASE OF [place] CORONARY 04/27/2017 KYLE YANG Ot I65.23 OCCLUSION AND STENOSIS OF [place] 04/27/2017 CURT ARAGON MD Ot E78.2 MIXED HYPERLIPIDEMIA 04/27/2017 CURT ARAGON MD Ot I10 ESSENTIAL (PRIMARY) HYPERTENSION 04/27/2017 CURT ARAGON MD Ot I25.10 ATHSCL HEART DISEASE OF [place] CORONARY 04/27/2017 CARTER BADILLO MD Ot M25.511 [...] 04/27/2017 BERTHA DHALIWAL MD Ot Z79.899 OTHER MAILROOM COURIER (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 THERAPY 04/27/2017 NOEL ZARAGOZA APRN Ot M54.9 DORSALGIA, UNSPECIFIED 04/27/2017 NOEL ZARAGOZA REGULATORY AFFAIRS SPEC Ot R07.9 CHEST PAIN, UNSPECIFIED 04/27/2017 NOEL [...] MD Ot I25.10 ATHSCL HEART DISEASE OF [place] CORONARY 04/27/2017 CARTER BADILLO MD Ot I51.7 [...] 04/27/2017 BERTHA DHALIWAL MD Ot Z79.899 OTHER SKILLED NURSING (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 THERAPY 04/27/2017 MELY METCALF DO [...] 04/28/2017 BERTHA DHALIWAL MD Ot Z79.899 OTHER MAILROOM COURIER (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 THERAPY 05/22/2017 BERTHA DHALIWAL MD Ot I51.7 CARDIOMEGALY 05/22/2017 BERTHA DHALIWAL MD Ot K44.9 DIAPHRAGMATIC HERNIA WITHOUT OBSTRUCTION 05/22/2017 BERTHA DHALIWAL MD Ot Z79.899 OTHER MAILROOM COURIER (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 THERAPY 06/07/2017 BERTHA DHALIWAL MD Ot I51.7 CARDIOMEGALY 06/07/2017 BERTHA DHALIWAL MD Ot K44.9 DIAPHRAGMATIC HERNIA WITHOUT OBSTRUCTION 06/07/2017 BERTHA DHALIWAL MD Ot Z79.899 OTHER MAILROOM COURIER (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 THERAPY 06/22/2017 Ot 793.80 UNSPEC [...] VESSEL, NATIV 06/22/2017 KYLE YANG K Ot 786.50 CHEST PAIN NOS 06/22/2017 [place], BERTHA Daniels Ot 427.31 ATRIAL FIBRILLATION 06/22/2017 LUCIANO SALOMON BEATER OUT Ot 244.9 HYPOTHYROIDISM NOS 06/22/2017 LUCIANO SALOMON BEATER OUT Ot 787.20 DYSPHAGIA, UNSPECIFIED 06/22/2017 LUCIANO SALOMONP Ot V76.12 OTH SCREEN MAMMO-MALIGN NEOPLASM OF [place] 06/22/2017 KYLE YANG K Ot E78.2 MIXED HYPERLIPIDEMIA 06/22/2017 AURA YANGTH K Ot I10 ESSENTIAL (PRIMARY) HYPERTENSION 06/22/2017 KYLE YANG Ot I25.10 ATHSCL HEART DISEASE OF [place] CORONARY 06/22/2017 KYLE YANG Ot I65.23 OCCLUSION AND STENOSIS OF [place] 06/22/2017 CURT ARAGON MD Ot E78.2 MIXED HYPERLIPIDEMIA 06/22/2017 CURT ARAGON MD Ot I10 ESSENTIAL (PRIMARY) HYPERTENSION 06/22/2017 CURT ARAGON MD Ot I25.10 ATHSCL HEART DISEASE OF [place] CORONARY 06/22/2017 CARTER BADILLO MD Ot M25.511 [...] 06/22/2017 BERTHA DHALIWAL MD Ot Z79.899 OTHER MAILROOM COURIER (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 THERAPY 06/22/2017 NOEL ZARAGOZA APRN Ot M54.9 DORSALGIA, UNSPECIFIED 06/22/2017 NOEL ZARAGOZA REGULATORY AFFAIRS SPEC Ot R07.9 CHEST PAIN, UNSPECIFIED 06/22/2017 NOEL ZARAGOZA REGULATORY AFFAIRS SPEC Ot R61 GENERALIZED HYPERHIDROSIS 06/22/2017 NOEL ZARAGOZA APRN Ot Z12.31 ENCNTR SCREEN MAMMOGRAM FOR MALIGNANT NE 06/22/2017 STAN TUCKERM, SNOW Frias Ot 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 06/22/2017 KYLE YANG Ot 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, 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 06/22/2017 CARTER BADILLO MD Ot E04.2 NONTOXIC MULTINODULAR GOITER 06/22/2017 CARTER BADILLO MD Ot I25.10 ATHSCL HEART DISEASE OF [place] CORONARY 06/22/2017 CARTER BADILLO MD Ot I51.7 CARDIOMEGALY 06/22/2017 CARTER BADILLO MD Ot 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, 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 06/22/2017 ABY NAITON, CARTER Saldivar Ot K44.9 DIAPHRAGMATIC HERNIA WITHOUT OBSTRUCTION 06/22/2017 BERTHA DHALIWAL MD Ot J44.9 CHRONIC OBSTRUCTIVE PULMONARY DISEASE, U 06/22/2017 BERTHA DHALIWAL MD Ot K44.9 DIAPHRAGMATIC HERNIA WITHOUT OBSTRUCTION 06/22/2017 BERTHA DHALIWAL MD Ot Z51.81 ENCOUNTER FOR THERAPEUTIC DRUG LEVEL MON 06/22/2017 BERTHA DHALIWAL MD Ot Z79.899 OTHER SKILLED NURSING (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 THERAPY 06/22/2017 MELY METCALF DO [...] 06/22/2017 BERTHA DHALIWAL MD Ot Z79.899 OTHER SKILLED NURSING (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 THERAPY 06/22/2017 CARTER BADILLO MD [...] G43.909 MIGRAINE, UNSP, NOT INTRACTABLE, WITHOUT 06/23/2017 ACRTER BADILLO MD Ot I11.0 HYPERTENSIVE HEART DISEASE [...] RESUSCITATE 06/23/2017 CARTER BADILLO MD Ot Z79.01 MAILROOM COURIER (CURRENT) USE OF ANTICOAGULANT 06/23/2017 CARTER BADILLO [...] RESUSCITATE 06/24/2017 CARTER BADILLO MD Ot Z79.01 SKILLED NURSING (CURRENT) USE OF ANTICOAGULANT 06/24/2017 CARTER BADILLO [...] RESUSCITATE 06/25/2017 CARTER BADILLO MD Ot Z79.01 MAILROOM COURIER (CURRENT) USE OF ANTICOAGULANT 06/25/2017 CARTER BADILLO [...] RESUSCITATE 06/25/2017 CARTER BADILLO MD Ot Z79.01 SKILLED NURSING (CURRENT) USE OF ANTICOAGULANT 06/25/2017 CARTER BADILLO [...] RESUSCITATE 06/26/2017 CARTER BADILLO MD Ot Z79.01 SKILLED NURSING (CURRENT) USE OF ANTICOAGULANT 06/26/2017 CARTER BADILLO [...] F32.9 MAJOR DEPRESSIVE DISORDER, SINGLE EPISOD 06/27/2017 CRATER BADILLO MD Ot F41.9 ANXIETY DISORDER, UNSPECIFIED [...] RESUSCITATE 06/27/2017 CARTER BADILLO MD Ot Z79.01 MAILROOM COURIER (CURRENT) USE OF ANTICOAGULANT 06/27/2017 CARTER BADILLO [...] RESUSCITATE 06/27/2017 CARTER BADILLO MD Ot Z79.01 MAILROOM COURIER (CURRENT) USE OF ANTICOAGULANT 06/27/2017 CARTER BADILLO MD Ot Z87.19 PERSONAL HISTORY OF OTHER DISEASES OF TH 06/27/2017 CARTER BADILLO MD, Ot Z87.442 PERSONAL HISTORY OF URINARY CALCULI 06/27/2017 CARTER BADILLO MD Ot Z95.0 PRESENCE OF CARDIAC PACEMAKER 06/27/2017 CARTER BADILLO MD Ot Z99.81 DEPENDENCE ON SUPPLEMENTAL OXYGEN 09/17/2017 AIDA DUEÑAS MD, Ot E03.9 HYPOTHYROIDISM, UNSPECIFIED 09/17/2017 AIDA DUEÑAS MD, Ot E78.00 PURE HYPERCHOLESTEROLEMIA, UNSPECIFIED [...] ABSENCE OF BOTH CERVIX AND UTER 09/20/2017 AIDA DUEÑAS MD Ot Z95.0 PRESENCE OF [...] 10/27/2017 [place], LACY Barnard Ot Z79.51 MAILROOM COURIER (CURRENT) USE OF INHALED STERO 10/27/2017 KAITLYNN [...] 10/30/2017 [place], LACY Barnard Ot Z79.51 SKILLED NURSING (CURRENT) USE OF INHALED STERO 10/30/2017 KAITLYNN [...] PAIN 11/03/2017 LACY CALDERÓN MD Ot Z79.51 MAILROOM COURIER (CURRENT) USE OF INHALED STERO 11/03/2017 LACY [...] MD Ot Z95.0 PRESENCE OF CARDIAC PACEMAKER 12/06/2017 CL ROSALES APRN Ot E03.9 HYPOTHYROIDISM, UNSPECIFIED 12/06/2017 CL ROSALES APRN Ot E78.00 PURE HYPERCHOLESTEROLEMIA, UNSPECIFIED 12/06/2017 CL ROSALES APRN Ot F03.90 UNSPECIFIED DEMENTIA WITHOUT BEHAVIORAL 12/06/2017 CL ROSALES APRN Ot F32.9 MAJOR DEPRESSIVE DISORDER, SINGLE EPISOD 12/06/2017 CL ORSALES APRN Ot F41.9 ANXIETY DISORDER, UNSPECIFIED 12/06/2017 CL ROSALES APRN Ot I10 ESSENTIAL (PRIMARY) HYPERTENSION 12/06/2017 CL ROSALES APRN Ot I48.91 UNSPECIFIED ATRIAL FIBRILLATION 12/06/2017 CL ROSALES APRN Ot J44.1 CHRONIC OBSTRUCTIVE PULMONARY DISEASE W 12/06/2017 CL ROSALES APRN Ot K21.9 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 12/06/2017 CL ROSALES APRN Ot R53.1 WEAKNESS 12/06/2017 CL ROSALES APRN Ot Z79.51 MAILROOM COURIER (CURRENT) USE OF INHALED STERO 12/06/2017 CL ROSALES APRN Ot Z82.49 FAMILY HX OF ISCHEM HEART DIS AND OTH DI 12/06/2017 CL ROSALES APRN Ot Z87.01 PERSONAL HISTORY OF PNEUMONIA (RECURRENT 12/06/2017 CL ROSALES APRN Ot Z87.442 PERSONAL HISTORY OF URINARY CALCULI 12/06/2017 CL ROSALES APRN Ot Z88.0 ALLERGY STATUS TO PENICILLIN 12/06/2017 CL ROSALES APRN Ot Z88.5 ALLERGY STATUS TO NARCOTIC AGENT STATUS 12/06/2017 CL ROSALES APRN Ot Z88.6 ALLERGY STATUS TO ANALGESIC AGENT STATUS 12/06/2017 CL ROSALES APRN Ot Z90.710 ACQUIRED ABSENCE OF BOTH CERVIX AND UTER 12/06/2017 CL ROSALES APRN Ot Z95.0 PRESENCE OF CARDIAC PACEMAKER 12/08/2017 CL ROSALES APRN Ot E03.9 HYPOTHYROIDISM, UNSPECIFIED 12/08/2017 CL ROSALES APRN Ot E78.00 PURE HYPERCHOLESTEROLEMIA, UNSPECIFIED 12/08/2017 CL ROSALES APRN Ot F03.90 UNSPECIFIED DEMENTIA WITHOUT BEHAVIORAL 12/08/2017 CL ROSALES APRN Ot F32.9 MAJOR DEPRESSIVE DISORDER, SINGLE EPISOD 12/08/2017 CL ROSALES APRN Ot F41.9 ANXIETY DISORDER, UNSPECIFIED 12/08/2017 CL ROSALES APRN Ot I10 ESSENTIAL (PRIMARY) HYPERTENSION 12/08/2017 CL ROSALES APRN Ot I48.91 UNSPECIFIED ATRIAL FIBRILLATION 12/08/2017 CL ROSALES APRN Ot J44.1 CHRONIC OBSTRUCTIVE PULMONARY DISEASE W 12/08/2017 CL ROSALES APRN Ot K21.9 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 12/08/2017 CL ROSALES APRN Ot R53.1 WEAKNESS 12/08/2017 CL ROSALES APRN Ot Z79.51 SKILLED NURSING (CURRENT) USE OF INHALED STERO 12/08/2017 CL ROSALES APRN Ot Z82.49 FAMILY HX OF ISCHEM HEART DIS AND OTH DI 12/08/2017 CL ROSALES APRN Ot Z87.01 PERSONAL HISTORY OF PNEUMONIA (RECURRENT 12/08/2017 CL ROSALES APRN Ot Z87.442 PERSONAL HISTORY OF URINARY CALCULI 12/08/2017 CL ROSALES APRN Ot Z88.0 ALLERGY STATUS TO PENICILLIN 12/08/2017 CL ROSALES APRN Ot Z88.5 ALLERGY STATUS TO NARCOTIC AGENT STATUS 12/08/2017 CL ROSALES APRN Ot Z88.6 ALLERGY STATUS TO ANALGESIC AGENT STATUS 12/08/2017 CL ROSALES APRN Ot Z90.710 ACQUIRED ABSENCE OF BOTH CERVIX AND UTER 12/08/2017 CL ROSALES APRN Ot Z95.0 PRESENCE OF CARDIAC PACEMAKER 12/08/2017 CL ROSALES APRN Ot E03.9 HYPOTHYROIDISM, UNSPECIFIED 12/08/2017 CL ROSALES APRN Ot E78.00 PURE HYPERCHOLESTEROLEMIA, UNSPECIFIED 12/08/2017 CL ROSALES APRN Ot F03.90 UNSPECIFIED DEMENTIA WITHOUT BEHAVIORAL 12/08/2017 CL ROSALES APRN Ot F32.9 MAJOR DEPRESSIVE DISORDER, SINGLE EPISOD 12/08/2017 CL ROSALES APRN Ot F41.9 ANXIETY DISORDER, UNSPECIFIED 12/08/2017 CL ROSALES APRN Ot I10 ESSENTIAL (PRIMARY) HYPERTENSION 12/08/2017 CL ROSALES APRN Ot I48.91 UNSPECIFIED ATRIAL FIBRILLATION 12/08/2017 CL ROSALES APRN Ot J44.1 CHRONIC OBSTRUCTIVE PULMONARY DISEASE W 12/08/2017 CL ROSALES APRN Ot K21.9 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 12/08/2017 CL ROSALES APRN Ot R53.1 WEAKNESS 12/08/2017 CL ROSALES APRN Ot Z79.51 MAILROOM COURIER (CURRENT) USE OF INHALED STERO 12/08/2017 CL ROSALES APRN Ot Z82.49 FAMILY HX OF ISCHEM HEART DIS AND OTH DI 12/08/2017 CL ROSALES APRN Ot Z87.01 PERSONAL HISTORY OF PNEUMONIA (RECURRENT 12/08/2017 CL ROSALES APRN Ot Z87.442 PERSONAL HISTORY OF URINARY CALCULI 12/08/2017 CL ROSALES APRN Ot Z88.0 ALLERGY STATUS TO PENICILLIN 12/08/2017 CL ROSALES APRN Ot Z88.5 ALLERGY STATUS TO NARCOTIC AGENT STATUS 12/08/2017 CL ROSALES APRN Ot Z88.6 ALLERGY STATUS TO ANALGESIC AGENT STATUS 12/08/2017 CL ROSALES APRN Ot Z90.710 ACQUIRED ABSENCE OF BOTH CERVIX AND UTER 12/08/2017 CL ROSALES APRN Ot Z95.0 PRESENCE OF CARDIAC PACEMAKER Procedures [...] culture - 06/22/17 03:05 Bacterial blood culture [facility] Capillary blood glucose measurement by glucometer (mass/volume) [...] measurement (mass/volume) < ng/ mL <0.30 Complete urinalysis with reflex to culture - 12/06/17 17:30 Urine color determination YELLOW NRG Urine clarity determination CLEAR NRG Urine pH measurement by test strip 6 5-9 Specific gravity of urine by test strip 1.010 1.016- 1.022 Urine protein assay by test [...] urine sediment by light microscopy NONE NRG Squamous epithelial cells detection in urine sediment by light microscopy 2-5 NRG Crystals detection in urine sediment by light microscopy NONE NRG Casts detection in urine sediment by light microscopy NONE NRG Mucus detection in urine sediment by light microscopy NEGATIVE NRG Complete urinalysis with reflex to culture NO NRG Digoxin - 12/06/17 17:34 Digoxin 0.62 ng/mL 0.80-2.00 Complete blood count (CBC) with automated white blood cell (WBC) differential - 12/06/17 17:38 Blood leukocytes automated count (number/volume) 5.8 10*3/uL 4.3-11.0 Blood erythrocytes automated count (number/volume) 4.91 10*6/uL 4.35-5.85 Venous blood hemoglobin measurement (mass/volume) 14.2 g/dL 11.5-16.0 Blood hematocrit (volume fraction) 42 % 35-52 Automated erythrocyte mean corpuscular volume 86 [foz_us] 80-99 Automated erythrocyte mean corpuscular hemoglobin (mass per erythrocyte) 29 pg 25-34 Automated erythrocyte mean corpuscular hemoglobin concentration measurement ( mass/volume) 34 g/dL 32-36 Automated erythrocyte distribution width ratio 14.8 % 10.0-14.5 Automated blood platelet count (count/volume) 214 10*3/uL 130-400 Automated blood platelet mean volume measurement 9.9 [foz_us] 7.4-10.4 Automated blood neutrophils/100 leukocytes 59 % 42-75 Automated blood lymphocytes/100 leukocytes 31 % 12-44 Blood monocytes/100 leukocytes 8 % 0-12 Automated blood eosinophils/100 leukocytes 2 % 0-10 Automated blood basophils/100 leukocytes 1 % 0-10 Blood neutrophils automated count (number/volume) 3.4 10*3 1.8-7.8 Blood lymphocytes automated count (number/volume) 1.8 10*3 1.0-4.0 Blood monocytes automated count (number/volume) 0.5 10*3 0.0-1.0 Automated eosinophil count 0.1 10*3/uL 0.0-0.3 Automated blood basophil count (count/volume) 0.0 10*3/uL 0.0-0.1 PT panel in platelet poor plasma by coagulation assay - 12/06/17 17:38 Prothrombin time (PT) in platelet poor plasma by coagulation assay 16.9 s 12.2-14.7 INR in platelet poor plasma or blood by coagulation assay 1.4 0.8-1.4 Comprehensive metabolic panel - 12/06/17 17:38 Serum or plasma sodium measurement (moles/volume) 141 mmol/L 135-145 Serum or plasma potassium measurement (moles/volume) 4.2 mmol/L 3.6-5.0 Serum or plasma chloride measurement (moles/volume) 109 mmol/L 98-107 Carbon dioxide 19 mmol/L 21-32 Serum or plasma anion gap determination (moles/volume) 13 mmol/L 5-14 Serum or plasma urea nitrogen measurement (mass/volume) 23 mg/dL 7-18 Serum or plasma creatinine measurement (mass/volume) 1.32 mg/dL 0.60-1.30 Serum or plasma urea nitrogen/creatinine mass ratio 17 NRG Serum or plasma creatinine measurement with calculation of estimated glomerular filtration rate 38 NRG Serum or plasma glucose measurement (mass/volume) 119 mg/dL 70-105 Serum or plasma calcium measurement (mass/volume) 9.5 mg/dL 8.5-10.1 Serum or plasma total bilirubin measurement (mass/volume) 0.9 mg/dL 0.1-1.0 Serum or plasma alkaline phosphatase measurement (enzymatic activity/volume) 68 U/L 40-136 Serum or plasma aspartate aminotransferase measurement (enzymatic activity/ volume) 26 U/L 5-34 Serum or plasma alanine aminotransferase measurement (enzymatic activity/volume ) 27 U/L 0-55 Serum or plasma protein measurement (mass/volume) 7.5 g/dL 6.4-8.2 Serum or plasma albumin measurement (mass/volume) 4.3 g/dL 3.2-4.5 Serum or plasma troponin i.cardiac measurement (mass/volume) - 12/06/17 17:38 Serum or plasma troponin i.cardiac measurement (mass/volume) < ng/ mL <0.30 Capillary blood glucose measurement by glucometer (mass/volume) - 12/06/17 18: 25 Capillary blood glucose measurement by glucometer (mass/volume) 111 mg/dL 70-110 Encounters ACCT No. Visit Date/Time Discharge Status Pt. Type Provider Facility Loc./Unit Complaint [id number] 01/24/2018 09:30:00 01/24/2018 23:59:59 CLS Preadmit RADHA NATION, MINO [facility] ENDO REFLUX/DYSPHAGIA [id number] 12/06/2017 17:04:00 12/06/2017 19:10:00 DIS Emergency CL ROSALES APRN [facility] ER COUGH;MUSCLE PAIN; WEAKNESS [id number] 10/27/2017 16:10:00 10/27/2017 18:26:00 DIS Emergency KAITLYNN NATION, LACY Barnard [facility] ER CHEST PAIN [id number] 09/17/2017 09:14:00 09/17/2017 11:39:00 DIS Emergency LEANA NATION, AIDA Ibarra [facility] ER COLD, CONGESTION IN CHEST [id number] 06/22/2017 03:30:00 06/27/2017 14:50:00 DIS Inpatient ABY NATION, CARTER Saldivar [facility] 4TH PNA-CAP,RESPIRATORY DISTRESS,HYPOXIA [id number] 04/27/2017 14:16:00 04/27/2017 23:59:59 CLS Outpatient MADHURI NATION, BERTHA Daniels [facility] RAD Z51.81, Z79.899 [id number] 03/09/2017 12:29:00 03/09/2017 23:59:59 CLS Outpatient NOEL ZARAGOZA APRN [facility] RAD SCREENING [id number] 12/28/2016 14:42:00 12/28/2016 23:59:59 CLS Outpatient TEA DOMELY [facility] RT DEMENTIA F03.90, ANXIETY F41.9,OBESITY E66.9 [id number] 11/07/2016 14:16:00 12/06/2016 16:00:00 DIS Outpatient ANJELICA HUBBARD MD [facility] WOUNDCARE [id number] 09/16/2016 09:52:00 09/16/2016 23:59:59 CLS Outpatient BERTHA DHALIWAL MD [facility] RAD Z51.81,Z79.899 [id number] 08/21/2016 11:22:00 08/21/2016 11:54:00 DIS Emergency TAD BOSS [facility] ER WOUND CHECK [id number] 08/20/2016 19:20:00 08/20/2016 22:45:00 DIS Emergency TAD BOSS [facility] ER BLEEDING AT SURGICAL SITE [id number] 07/05/2016 09:17:00 07/05/2016 23:59:59 CLS Outpatient CARTER BADILLO MD [facility] RAD ABNORMAL CHEST XRAY, FOLLOW UP THYROID NODULES [id number] 07/05/2016 09:11:00 07/05/2016 23:59:59 CLS Outpatient KYLE YANG [facility] RAD AORTIC ANEURYSM, THORACIC [id number] 06/30/2016 07:34:00 06/30/2016 23:59:59 CLS Outpatient SNOW PIERCE DPM [facility] RAD LIPOMA RIGHT ANKLE [id number] 06/30/2016 10:00:00 06/30/2016 10:00:00 CAN Preadmit NOEL ZARAGOZA APRN [facility] RAD ABNORMAL CHEST XR [id number] 03/07/2016 14:51:00 03/07/2016 23:59:59 CLS Outpatient NOEL ZARAGOZA APRN [facility] RAD SCREENING [id number] 02/25/2016 13:37:00 02/25/2016 23:59:59 CLS Outpatient NOEL ZARAGOZA APRN [facility] CARD CHEST PAIN,BACK PAIN ,DIAPHORESIS [id number] 01/06/2016 20:56:00 01/07/2016 06:35:00 DIS Outpatient CARTER BADILLO MD [facility] SLEEP OBSERVED APNEAS, SNORING,NAYELI,HTN,DAYTIME SLEEPINESS [id number] 11/08/2015 08:47:00 11/08/2015 09:55:00 DIS Emergency FRANCISCO PABLO MD [facility] ER SORE THROAT,BILAT EAR PAIN [id number] 10/02/2015 12:45:00 10/02/2015 23:59:59 CLS Outpatient BERTHA DHALIWAL MD [facility] RAD ENCOUNTER FOR MONITORING AMIODARONE THERAPY [id number] 07/15/2015 10:25:00 07/15/2015 14:10:00 DIS Outpatient MINO GARCIA MD [facility] SDC DYSPHAGIA [id number] 07/13/2015 14:55:00 07/13/2015 23:59:59 CLS Outpatient MINO GARCIA MD [facility] PREOP DYSPHAGIA [id number] 06/30/2015 09:23:00 06/30/2015 23:59:59 CLS Outpatient LUCIANO SALOMON [facility] RAD THYROID NODULES [id number] 06/10/2015 07:33:00 06/10/2015 23:59:59 CLS Outpatient CURT ARAGON MD [facility] CARD CAD,CAROTID ARTERY STENOSIS,HTN,HYPERLIPIDEMIA [id number] 06/09/2015 07:46:00 06/09/2015 23:59:59 CLS Outpatient KYLE YANG [facility] CARD CAD,CAROTID ARTERY STENOSIS,HTN,HYPERLIPIDEMIA [id number] 05/12/2015 12:34:00 05/12/2015 23:59:59 CLS Outpatient CARTER BADILLO MD [facility] RAD NECK AND RIGHT SHOULDER PAIN, [id number] 05/06/2015 16:53:00 05/06/2015 19:22:00 DIS Emergency KALIA DO, JAMES K [facility] ER HEADACHE,NAUSEA,WEAKNESS [id number] 02/18/2015 11:16:00 02/18/2015 23:59:59 CLS Outpatient LUCIANO SALOMONP [facility] RAD SCREENING [id number] 12/22/2014 11:08:00 12/22/2014 23:59:59 CLS Outpatient LUCIANO SALOMON BEATER OUT [facility] RAD HYPOTHYROIDISM [id number] 11/19/2014 06:46:00 11/19/2014 23:59:59 CLS Outpatient MADHURI NATION, BERTHA Daniels [facility] RT PAROXYSMAL ATRIAL FIBRILLATION [id number] 10/22/2014 16:19:00 10/22/2014 20:14:00 DIS Emergency LEANA NATION, AIDA Ibarra [facility] ER SOA [id number] 05/21/2014 07:00:00 05/22/2014 10:20:00 DIS Outpatient MARGO NATION, CURT [place]ca [facility] CATH ABNORMAL STRESS, CP,HTN, HLP [id number] 05/08/2014 10:24:00 05/08/2014 23:59:59 CLS Outpatient KYLE YANG [facility] CARD CAD,CP,HTN [id number] 05/05/2014 07:44:00 05/05/2014 23:59:59 CLS Outpatient KYLE YANG [facility] CARD CAD,CP,HTN [id number] 02/13/2014 13:07:00 02/13/2014 23:59:59 CLS Outpatient JULISA NATION, ARUNA Vale [facility] RAD SCREENING [id number] 11/25/2013 09:01:00 11/25/2013 10:21:00 DIS Emergency KALIA JAMES DICK [facility] ER CHEST/UPPER BACK PAIN [id number] 09/16/2013 08:15:00 09/16/2013 23:59:59 CLS Outpatient JENELLE NATION, PJ Wells [facility] RAD ABD PAIN [id number] 07/08/2013 16:33:00 07/08/2013 23:59:59 CLS Outpatient CURT ARAGON MD [facility] RAD CAD,CVA [id number] 12/18/2012 11:15:00 12/21/2012 22:00:00 DIS Inpatient ARUNA EGAN MD [facility] CSD CHEST PAIN [id number] 12/10/2012 12:35:00 12/10/2012 23:59:59 CLS Outpatient ARUNA EGAN MD [facility] RAD L BREAST PAIN [id number] 11/18/2014 11:44:00 Document Registration [id number] 11/18/2014 11:43:00 Document Registration [id number] 11/18/2014 11:43:00 Document Registration [id number] 11/18/2014 11:43:00 Document Registration [id number] 11/18/2014 11:43:00 Document Registration [id number] 09/24/2012 06:47:00 Document Registration [id number] 05/07/2012 07:04:00 Document Registration [id number] 05/04/2012 08:10:00 Document Registration [id number] 03/13/2012 12:47:00 Document Registration [id number] 12/15/2011 09:11:00 Document Registration [id number] 10/11/2011 12:54:00 Document Registration [id number] 09/14/2011 18:15:00 Document Registration [id number] 09/07/2011 12:10:00 Document Registration [id number] 12/03/2010 08:32:00 Document Registration [id number] 11/23/2010 13:43:00 Document Registration [id number] 06/10/2010 06:19:00 Document Registration [id number] 11/25/2009 07:50:00 Document Registration [id number] 03/30/2017 09:31:49 03/30/2017 23:59:59 CLS Outpatient [id number] 02/18/2015 11:16:38 ACT Document Registration [id number] 12/01/2016 09:47:00 12/01/2016 23:59:00 DIS Outpatient CURT ARAGON
--- NOTE | 2018-02-16 13:32 | Diagnostic Imaging Report ---
INDICATION: Right arm discoloration. TECHNIQUE: Color and grayscale sonographic images with duplex Doppler evaluation of the upper extremity venous system. CORRELATION STUDY: None FINDINGS: There is no intraluminal filling defect within the visualized portion of the internal jugular, subclavian, axillary, brachial and/or basilic veins to suggest thrombus formation. Where applicable, these vessels demonstrate normal response to compression and augmentation. There is a heterogeneous mass in the soft tissues at the mid humerus. This area measures 3.3 x 1.8 x 3.7 cm. No significant abnormal vascularity. IMPRESSION: 1. Negative right upper extremity venous duplex Doppler evaluation for venous thrombosis. 2. Nearly 4 cm heterogeneous mass soft tissues right upper extremity. This finding is nonspecific. The patient reports that this has been there for several years. This does not have the the typical appearance of a simple lipoma. Other mass lesions or perhaps hematoma are considerations. Clinical correlation recommended. If further imaging evaluation desired, MRI would be recommended. Dictated by: Dictated on workstation # [id number]
--- NOTE | 2018-02-16 13:34 | Diagnostic Imaging Report ---
Indication: Right arm discoloration. TECHNIQUE: Color and grayscale sonographic images and duplex Doppler evaluation of the arterial system of the upper extremity. FINDINGS: There is normal Doppler arterial waveforms noted within the visualized vessels of the left upper extremity. No significant change in the overall velocity or findings to suggest stenosis. No evidence to suggest arteriovenous fistula. IMPRESSION: Unremarkable appearing right upper extremity arterial Doppler evaluation. Dictated by: Dictated on workstation # [id number]
--- NOTE | 2018-02-16 14:20 | ED General ---
General Chief Complaint: Upper Extremity Stated Complaint: RT ARM DISCOLORED Nursing Triage Note: AMBULATORY TO ED WITH C/O ACHE, PAIN, AND BRUISING TO RIGHT UPPER EXTREMITIY. STATES SHE RECEIVES B12 SHOTS AT DR. GREENE OFFICE [id number]. ONE MONTH AGO RECIEVED B12 SHOT TO RIGHT ARM, AFTER WHICH A KNOT FORMED AND IT WAS ACHY AND PAINFUL, TWO WEEKS LATER RECEIVED B12 SHOT TO LEFT ARM. NO C/O TO LEFT UPPER EXTREMITIY. RIGHT UPPER EXTREMITY HAS BEEN ACHY AND PAINFUL X1 MONTH AND APPROX 1 WEEK AGO BECAME BRUISED LOOKING, PURPLE, AND WARM TO TOUCH. STATES SHE CAN HARDLY MOVE ARM OR USE TO START IGNITION IN VEHICLE. Nursing Sepsis Screen: No Definite Risk History of Present Illness Date Seen by Provider: Feb 16, 2018 Time Seen by Provider: 11:15 Initial Comments This 84-year-old woman presents to the emergency room with complaints of pain and profound bruising of the right upper arm. She reports having B-12 injections placed in her upper arms on a routine basis at Dr. Vega's office. Her last injection in the right arm was about one month ago. Patient reports having chronic pain and mobility problems with the right shoulder. The more acute problem seemed to start about one week ago. She remembers lifting a ketchup bottle and having a sudden intense pain in the proximal portion of the right upper arm. She noted a significant decrease in functional capacity after that. She had difficulty starting the ignition of her car and driving home. She has had progressive bruising since then. The bruising has migrated down to the mid forearm. Pain has improved but not back to baseline. She has also developed a nodule on the anterior portion of the proximal right upper arm that is tender to palpation. She is anticoagulated. Allergies and Home Medications Allergies Coded Allergies: Penicillins (Verified Allergy, Unknown, 01/17/18) codeine (Verified Allergy, Unknown, 09/09/08) morphine (Verified Allergy, Unknown, 09/09/08) Home Medications Albuterol Sulfate 2.5 Mg/3 Ml Vial.neb, 2.5 MG INH RTQ2H PRN for WHEEZING Prescribed by: CARTER VEGA on 06/27/17 0903 Albuterol Sulfate 2.5 Mg/3 Ml Vial.neb, 2.5 MG IH Q4H PRN for SHORTNESS OF BREATH For uncontrolled cough, wheezing, or shortness of breath Prescribed by: AIDA LOJA on 09/17/17 1119 Alprazolam 0.25 Mg Tablet, 0.25 MG PO BID PRN for ANXIETY Prescribed by: CARTER VEGA on 06/27/17902 Amiodarone HCl 200 Mg Tablet, 100 MG PO DAILY, (Reported) TAKES 1/2 (200MG) TABLET Amlodipine Besylate 5 Mg Tablet, 5 MG PO DAILY, (Reported) Buspirone HCl 15 Mg Tablet, 15 MG PO BID, (Reported) Cholecalciferol (Vitamin D3) 5,000 Unit Capsule, 5,000 UNIT PO DAILY, (Reported) Cyanocobalamin 1,000 Mcg/Ml Inj, 1,000 MCG INJ EVERY OTHER MONDAY, (Reported) Dabigatran Etexilate Mesylate 150 Mg Capsule, 150 MG PO BID, (Reported) Dexlansoprazole 60 Mg Cap.bp, 60 MG PO DAILY, (Reported) Digoxin 125 Mcg Tablet, 125 MCG PO SuMoWeFr, (Reported) Donepezil HCl 10 Mg Tablet, 10 MG PO HS, (Reported) Erythromycin Base 250 Mg Tablet, 250 MG PO TID, (Reported) Fluticasone Propionate 9.9 Ml [place].susp, 1 SPRAY NS DAILY, (Reported) 1 SPRAY EACH NARE DAILY Fluticasone/Salmeterol 12 Gm Hfa.aer.ad, 1 PUFF IH BID Prescribed by: CARTER VEGA on 06/27/17903 Furosemide 40 Mg Tablet, 40 MG PO DAILY, (Reported) Hydrocodone Bit/Acetaminophen 1 Tab Tab, 1-2 TAB PO Q6H PRN for PAIN-MODERATE Prescribed by: CARTER VEGA on 06/27/17902 Levothyroxine Sodium 125 Mcg Tablet, 125 MCG PO DAILY, (Reported) LAST FILLED #90 [id number] Liothyronine Sodium 5 Mcg Tablet, 5 MCG PO BID, (Reported) Losartan Potassium 100 Mg Tablet, 100 MG PO 1230, (Reported) Meloxicam 15 Mg Tablet, 15 MG PO DAILY, (Reported) Metoprolol Tartrate 50 Mg Tablet, 25 MG PO BID, (Reported) TAKES 1/2 (50MG) TABLET [place]-3 Fatty Acids/Fish Oil 1 Each Capsule, 1,000 MG PO BID, (Reported) Pantoprazole Sodium 40 Mg Tablet.dr, 40 MG PO HS, (Reported) Potassium Chloride 20 Meq Tab.er.prt, 20 MEQ PO 1230,2130, (Reported) Sertraline HCl 50 Mg Tablet, 50 MG PO DAILY, (Reported) Sucralfate 1 Gm Tablet, 1 GM PO DAILY, (Reported) Topiramate 25 Mg Tablet, 25 MG PO BID PRN for HEADACHE, (Reported) LAST FILLED #60 02-22-17 Patient Home Medication List Home Medication List Reviewed: Yes Review of Systems Review of Systems Constitutional: no symptoms reported EENTM: no symptoms reported Respiratory: no symptoms reported Cardiovascular: see HPI Gastrointestinal: no symptoms reported Genitourinary: no symptoms reported : No Musculoskeletal: see HPI Skin: see HPI Psychiatric/Neurological: No Symptoms Reported Hematologic/Lymphatic: See HPI Immunological/Allergic: no symptoms reported Past [place]-Qijskg Hx Patient Social History Alcohol Use: Denies Use Recreational Drug Use: No Smoking Status: Never a Smoker 2nd Hand Smoke Exposure: No Recent Foreign Travel: No Contact w/Someone Who Travel: No Recent Infectious Disease Expo: No Recent Hopitalizations: No Immunizations Up To Date Tetanus Booster (TDap): Unknown Date of Pneumonia Vaccine: Mar 22, 2017 Date of Influenza Vaccine: Mar 19, 2017 Seasonal Allergies Seasonal Allergies: Yes Past Medical History Surgeries: Yes (UNSURE IF PACER/POSSIBLY LOOP RECORDER) Abdominal, Gallbladder, Hysterectomy, Orthopedic Respiratory: Yes (Nocternal hypoxia) Pneumonia, COPD Currently Using CPAP: No Currently Using BIPAP: No Cardiac: Yes (CHF, sinus node dysfunction s/p pacemaker) Atrial Fibrillation, High Cholesterol, Hypertension Neurological: Yes Dementia Reproductive Disorders: No Sexually Transmitted Disease: No HIV/AIDS: No Genitourinary: Yes Kidney Stones Gastrointestinal: Yes (diverticulitis ) Gastroesophageal Reflux, Hiatal Hernia Musculoskeletal: Yes (osteoarthritis) Arthritis Endocrine: Yes (HYPOGLYCEMIA) Hypothyroidsim HEENT: No Cancer: No Psychosocial: Yes Anxiety, Depression Integumentary: No Blood Disorders: No Family Medical History Heart Disease Physical Exam Vital Signs Vital Signs - First Documented 02/16/18 02/16/18 11:00 14:26 Temp 98.8 Pulse 79 Resp 19 B/P (MAP) 154/75 (101) Pulse Ox 100 O2 Delivery Room Air Capillary Refill : Less Than 3 Seconds Height, Weight, BMI Height: 5'5.00" Weight: 165lbs. 0.0oz. 74.096290vf; 27.9 BMI Method:Stated General Appearance: No Apparent Distress, WD/WN HEENT: Normal ENT Inspection Neck: Normal Inspection Respiratory: Lungs Clear, Normal Breath Sounds, No Accessory Muscle Use Cardiovascular: Regular Rate, Rhythm, No Edema, No Murmur, Normal Peripheral Pulses (Normal right radial pulse) Extremity: Normal Capillary Refill, Other (Extensive ecchymosis throughout the right upper arm and into the forearm. Tenderness over the right shoulder. Nodular structure about 3 cm in diameter on the proximal right anterior upper arm. Induration of the soft tissues involving the deltoid muscle and nearby structures. Decreased range of motion and pain with range of motion of the right shoulder.) Neurologic/Psychiatric: Alert, Oriented x3, No Motor/Sensory Deficits, Normal Mood/Affect, extension agent II-XII Norm as Tested Skin: Normal Color, Warm/Dry, Ecchymosis Progress/Results/Core Measures Suspected Sepsis Recent Fever Within 48 Hours: No Infection Criteria Present: None New/Unexplained Altered Menta: No Sepsis Screen: No Definite Risk SIRS Temperature:98.8 Pulse: 79 Respiratory Rate: 19 Blood Pressure 154 /75 Mean: 101 Results/Orders My Orders Orders - AIDA DUEÑAS MD Us Right Up Ext Arterial [id number] (02/16/18 11:31) Us Venous Upper Ext Rt (02/16/18 11:31) Vital Signs/I&O Capillary Refill : Less Than 3 Seconds Blood Pressure Mean: 101 Progress Note : Progress Note Ultrasound was performed to rule out vascular defect such as pseudoaneurysm. The mass was seen on ultrasound as well. It is unclear if this was a hematoma or some other type of mass. Patient feels like perhaps this lump has been there for more than a week. I suspect her symptoms are due to either a rupture of a small vessel or a rupture/tear of muscle or tendon. I have advised further evaluation in the outpatient setting with MRI. Patient was advised to see Dr. Vega and/or Dr. Watt (her orthopedist) to obtain outpatient orders. Patient was advised to discontinue Mobic until further discussion with her primary care provider. Departure Impression Primary Impression: Ecchymosis Additional Impressions: Right arm pain Mass of right upper extremity Disposition: 01 HOME, SELF-CARE Condition: Stable Departure-Patient Inst. Decision time for Depature: 14:15 Referrals: CARTER VEGA MD (PCP/Family) Primary Care Physician Patient Instructions: HEMATOMA Add. Discharge Instructions: The ultrasound of your arm revealed no problems with the blood vessels. There was a mass which could be a hematoma (collection of blood). The exact cause of your bruising and pain is uncertain but may be related to a leak from a small blood vessel resulting from use of blood thinners. Another cause of your bruising and pain may be related to injury to the tendons or muscles of the upper arm. Further evaluation with an MRI is recommended. Please follow-up with Dr. Watt and/or Dr. Vega to arrange for MRI. Also consider stopping Mobic (meloxicam) until discussing with Dr. Vega. Use of anti- inflammatories like Mobic may make bleeding worse. You may use ice and Tylenol (acetaminophen) for treatment of pain. Return to care if symptoms are worsening. Expected the bruising discoloration to spread over the next week or so. It should then start to fade gradually. All discharge instructions reviewed with patient and/or family. Voiced understanding. Copy Copies To 1: CARTER VEGA MD, JOSHUA T MD Feb 16, 2018 14:20
[2018-02-16 14:26] VITALS: BP 141/72
== END 2018-02-16 14:26 | disposition home or self-care (01) ==
LOC: EDUNIT# 10:52 → ER 10:54
DX: S40.021A Contusion of right upper arm, initial encounter (principal); M79.89 Other specified soft tissue disorders; M79.621 Pain in right upper arm; J44.9 Chronic obstructive pulmonary disease, unspecified; I48.91 Unspecified atrial fibrillation; I11.0 Hypertensive heart disease with heart failure; I50.9 Heart failure, unspecified; E78.00 Pure hypercholesterolemia, unspecified; F03.90 Unspecified dementia, unspecified severity, without behavioral disturbance, psychotic disturbance, mood disturbance, and anxiety; K21.9 Gastro-esophageal reflux disease without esophagitis; E03.9 Hypothyroidism, unspecified; F41.9 Anxiety disorder, unspecified; F32.9 Major depressive disorder, single episode, unspecified; Z87.19 Personal history of other diseases of the digestive system; Z82.49 Family history of ischemic heart disease and other diseases of the circulatory system; Z87.442 Personal history of urinary calculi; Z88.0 Allergy status to penicillin; Z88.5 Allergy status to narcotic agent; Z95.0 Presence of cardiac pacemaker; Z79.51 Long term (current) use of inhaled steroids; Z90.710 Acquired absence of both cervix and uterus; Z87.01 Personal history of pneumonia (recurrent); X58.XXXA Exposure to other specified factors, initial encounter
CPT/HCPCS: 93931

== ENCOUNTER → 2018-07-06 | Outpatient (CLI) | payer MEDICARE, OTHER, MEDICAID ==
[2018-06-26 09:48] LABS: CREATININE SERUM 1.33 MG/DL (0.60-1.30)
[~2018-07-06] MED LIST changes: +IOHEXOL 350 MG/ML 100 ML (OMNIPAQUE 350) VIAL IV ONE; +NS 100 ML (IVPB) BAG IV ONE; +RECEIVED CONTRAST (Hold Metformin) IV SCH
[2018-07-06 09:44] LABS: CREATININE SERUM 1.19 MG/DL (0.60-1.30)
--- NOTE | 2018-07-06 11:14 | Diagnostic Imaging Report ---
PROCEDURE: CT angiography of the chest with contrast. TECHNIQUE: Multiple contiguous axial images were obtained through the chest after uneventful bolus administration of intravenous contrast. 2D reconstructed CTA MIP acquisitions were also performed. INDICATION: Upper chest and back pain. COMPARISON: Correlation is made with prior noncontrast CT chest from 07/05/2016. FINDINGS: Ascending thoracic aorta remains mildly aneurysmal but stable measuring 4.5 cm AP compared with 4.5 cm on prior exam. The aortic arch and descending thoracic aorta are normal in caliber. No dissection is seen. The pulmonary arterial system is without evidence of thromboembolism. No filling defects are seen within central, lobar, or segmental branches. No pericardial or pleural fluid is seen. There is a large hiatal hernia present. Tiny nodule in the right upper lobe appears stable with prior exam. Remainder of the lung quintanilla are clear. Upper abdomen demonstrates large cysts arising from the upper pole of the left kidney, slightly larger measuring 7.2 cm compared with 6.7 cm. IMPRESSION: 1. No evidence of thoracic aortic dissection or pulmonary embolism. 2. Stable ascending thoracic aortic aneurysm. 3. No acute cardiopulmonary abnormality is seen. 4. Large hiatal hernia. 5. Slight increase in size of the left renal cyst. Dictated by: Dictated on workstation # [id number]
== END ==
LOC: RAD 06-26 09:13
PROVIDERS: ATTEND Physician Assistant
DX: I71.2 Thoracic aortic aneurysm, without rupture (principal); K44.9 Diaphragmatic hernia without obstruction or gangrene; N28.1 Cyst of kidney, acquired; I25.10 Atherosclerotic heart disease of native coronary artery without angina pectoris; I10 Essential (primary) hypertension; E78.2 Mixed hyperlipidemia
CPT/HCPCS: 36415; 71275; 82565; 84520

== ENCOUNTER → 2018-10-10 | Outpatient (CLI) | payer MEDICARE, OTHER, MEDICAID ==
[~2018-10-10] MED LIST changes: -AMLO5TAB7 PO; +AMLO5TAB9 PO; -IOHEXOL 350 MG/ML 100 ML (OMNIPAQUE 350) VIAL IV ONE; +LOSA100T57 PO; -LOSA100T8 PO; -NS 100 ML (IVPB) BAG IV ONE; -RECEIVED CONTRAST (Hold Metformin) IV SCH
--- NOTE | 2018-10-10 14:07 | Diagnostic Imaging Report ---
INDICATION: Cough and congestion. EXAMINATION: PA and lateral chest. FINDINGS: There is a dual-chamber pacemaker. There is a hiatal hernia. There is a 13 mm nodule projecting over the left heart border that was not present previously. IMPRESSION: Nodular opacity in the left lower chest superimposed over the left heart border. This was not present on 12/06/2017. Close interval followup is recommended. Dictated by: Dictated on workstation # [id number]
== END ==
LOC: RAD 12:59
PROVIDERS: ATTEND Nurse Practitioner Family
DX: R91.8 Other nonspecific abnormal finding of lung field (principal); R05 Cough; R09.89 Other specified symptoms and signs involving the circulatory and respiratory systems; Z95.0 Presence of cardiac pacemaker
CPT/HCPCS: 71046

== ENCOUNTER → 2018-10-23 | Outpatient (CLI) | payer MEDICARE, OTHER, MEDICAID ==
--- NOTE | 2018-10-23 15:05 | Diagnostic Imaging Report ---
PROCEDURE: CT chest without contrast. TECHNIQUE: Multiple contiguous axial images were obtained through the chest without the use of intravenous contrast. Auto Exposure Controls were utilized during the CT exam to meet ALARA standards for radiation dose reduction. INDICATION: Chest pain. Nodular opacity. COMPARISON: Chest radiograph dated 10/10/[address] chest dated 07/06/2018. FINDINGS: Cardiomediastinal structures show normal heart size. Left-sided dual-lead pacemaker is noted. There is moderate calcified aortic and coronary atherosclerosis. 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 This is stable compared to 4.5 cm on previous exam dated 10/22/2014. No pathologically enlarged or morphologically abnormal adenopathy is seen within the mediastinum, ysabel, nor axilla. Note is made of large hiatal hernia. There is also moderate amount of debris within the visualized portions of the esophagus. Evaluation of the lung quintanilla shows no focal consolidation, large effusion, nor pneumothorax. There is punctate 2-3 mm micronodule associated with the inferior margins of the major fissure on the left (image 22, series 3). This is stable compared to 07/05/2016. Punctate subpleural micronodule within the lateral margins of the left lower lobe (image 28, series 3) is also stable. 5 mm subpleural micronodule within the posterior margins of the right lower lobe is also identified and stable (image 25). No new suspicious pulmonary nodules or masses are identified. Bony structures show age-related degenerative changes of the thoracic spine. No lytic or blastic osseous lesions are identified. Included portions of the upper abdomen show no acute abnormalities. IMPRESSION: 1. Stable bilateral pulmonary micronodules, largest of which measures 5 mm and is seen within the right lower lobe. Stability since 07/05/2016 suggests benignity. 2. Large hiatal hernia. Moderate amount of debris within the visualized portions of esophagus could be on the basis of reflux. Underlying obstruction however cannot be entirely excluded. 3. Moderate calcified aortic and coronary atherosclerosis. 4. Stable aneurysmal dilatation of the ascending thoracic aorta. Dictated by: Dictated on workstation # [id number]
== END ==
LOC: RAD 12:45
PROVIDERS: ATTEND Nurse Practitioner Family
DX: I25.10 Atherosclerotic heart disease of native coronary artery without angina pectoris (principal); I70.0 Atherosclerosis of aorta; K22.8 Other specified diseases of esophagus; K44.9 Diaphragmatic hernia without obstruction or gangrene; R91.8 Other nonspecific abnormal finding of lung field; I71.2 Thoracic aortic aneurysm, without rupture
CPT/HCPCS: 71250

== ENCOUNTER 2018-12-05 09:00 | Day surgery (SDC) | payer MEDICARE, OTHER, MEDICAID ==
[~2018-12-05] VITALS: Ht 165.1 cm; Wt 74.8 kg
[~2018-12-05 09:00] MED LIST changes: +LEVO137T2 PO; +LORA10TA7 PO
[2018-12-05] MEDS ORDERED: NS IV 500 ML 500 ML ONE (09:17)
[2018-12-05 09:30] VITALS: BP 157/74
[2018-12-05] MEDS ORDERED: MIDAZOLAM 2 MG/2 ML (VERSED) VIAL ONE ×3 (09:36→10:07)
[2018-12-05] MEDS ORDERED: fentaNYL INJECTION 100 MCG/2 ML AMP ONE (09:36)
[2018-12-05] MEDS ORDERED: HURRICAINE EXT TUBE (BENZOCAINE) ONE (09:37)
[2018-12-05] MEDS ORDERED: LIDOCAINE JELLY 2% 6 ML SYRINGE ONE (09:37)
[2018-12-05] MEDS ORDERED: NS IV 500 ML 500 ML IV PRN (12:37)
[2018-12-05] MEDS ORDERED: MIDAZOLAM 2 MG/2 ML (VERSED) VIAL IVP ONE (12:45)
[2018-12-05] MEDS ORDERED: HURRICAINE EXT TUBE (BENZOCAINE) XX PRN (12:45)
[2018-12-05] MEDS ORDERED: fentaNYL INJECTION 100 MCG/2 ML AMP IVP ONE (12:45)
[2018-12-05] MEDS ORDERED: LIDOCAINE JELLY 2% 6 ML SYRINGE MM PRN (12:45)
--- OUTSIDE RECORDS SUMMARY | 2018-12-05 14:20 | XMS REPORT | Clinical Summary ---
Author Author [facility] Organization [facility] Address Unknown Phone Unavailable Care Team Providers Care Supervisor Of Research Name Role Phone Dorian Muse MD Unavailable Ernesto Sosa MD [address] Melvin Monterroso MD Unavailable Unavailable Dana Birmingham RN Unavailable Unavailable Severiano Daniel DO Unavailable Yarely Vega MD PCP Source Comments Some departments are not documenting in the electronic medical record. If you d o not see the information that you expected, contact Release of Information in [facility] [employer] Information Management department at [phone] for further assistan ce in locating additional records.[facility] Allergies Comments Active Allergy Reactions Severity Noted Date Codeine NAUSEA AND 12/01/2008 VOMITING Morphine NAUSEA AND 12/01/2008 VOMITING Penicillins UNKNOWN Low 12/31/2015 Medications End Date Status Medication Sig Dispensed Refills Start Date Active donepezil (ARICEPT) 10 mg Take 10 mg by 0 tablet mouth At Bedtime Daily. Active alprazolam (XANAX) 0.25 Take 0.25 mg 0 mg tablet by mouth twice daily as needed. Active losartan (COZAAR) 100 mg Take 100 mg 0 tablet by mouth Daily. Active meloxicam(+) (MOBIC) 15 Take 15 mg by 0 mg tablet mouth daily. Active sertraline (ZOLOFT) 50 mg Take 50 mg by 0 tablet mouth daily. Active potassium chloride SR Take 40 mEq 0 (K-DUR) 20 mEq tablet by mouth daily. Active sucralfate (CARAFATE) 1 Take 1 g by 0 gram tablet mouth at bedtime daily. Active furosemide (LASIX) 40 mg Take 40 mg by 0 tablet mouth daily. Active digoxin (LANOXIN) 125 mcg Take 1 Tab by 90 Tab 0 tablet mouth every 4 48 hours. Active dabigatran (PRADAXA) 150 Take 150 mg 0 mg capsule by mouth twice daily. Active BUSPIRONE HCL (BUSPAR PO) Take 15 mg by 0 mouth twice daily. Active liothyronine (CYTOMEL) 5 Take 5 mcg by 0 mcg tab mouth twice daily. Active pantoprazole DR Take 40 mg by 0 (PROTONIX) 40 mg tablet mouth twice daily. Active cyanocobalamin (VITAMIN Inject 1 mL 0 B-12, RUBRAMIN) 1,000 into the mcg/mL injection muscle every 14 days. Active levothyroxine (SYNTHROID) Take 125 mcg 0 125 mcg tablet by mouth daily 30 minutes before breakfast. Active Cholecalciferol (Vitamin Take 5,000 0 D3) (VITAMIN D-3) 5,000 Units by unit tab mouth daily. Active dexlansoprazole (+) Take 60 mg by 0 (DEXILANT) 60 mg capsule mouth daily. Active Erythromycin 500 mg TbEC Take 1 tablet 0 by mouth at bedtime daily. Active metoprolol XL (TOPROL XL) Take 50 mg by 0 50 mg extended release mouth daily. tablet Active [place]-3 Acid Ethyl Esters Take 1 g by 0 1 gram cap mouth as directed. Take 2g in the morning, 1g around noon and 1g at bedtime Active HYDROcodone/acetaminophen Take 1 tablet 0 (NORCO) 5/325 mg tablet by mouth every 6 hours as needed for Pain Active amiodarone (CORDARONE) Take one-half 45 tablet 3 200 mg tablet tablet by 9 mouth daily. Take with food. Active Problems Problem Noted Date Chest pain [...] syncope 09/16/2011 Overview: 09/14/11 hospital admission to [facility] in [place], [place]. Reveal device [id number] implanted by Allyn Petit MD. Cardiac pacemaker in situ 08/18/2011 Overview: 09/16/11 Reveal device 9529, [employer]. Hypertension Hyperlipidemia Overview: 09/14/2011 Lipid Profile: Cholesterol: 171, Triglyceride: 132, HDL: 39, LDL: 106 Paroxysmal atrial fibrillation Overview: Hx of brief AF, CHADS score 2, ASA Hypothyroidism Dementia Anxiety Resolved Problems Problem Noted Date Resolved Date Chest pain 09/16/2011 10/18/2011 Overview: 2002 Cardiac cath: mLAD 30%; mRCA 40-50%, diffuse plaques also. Medical treatment, started Plavix. 09/14/11 Admitted to [facility] ( [facility]) with CP & palpitations. Stress test Lexiscan Myoview) showed no ischemia. EF 65% Echocardiogram: EF 70%. Mild LVH. La size 4.3cm. Mitral valve with myxomatous degeneration, mild MR. Palpitations 10/20/2011 Lower GI bleeding 10/18/2011 Encounters Care Team Description Date Type Specialty Ernesto Sosa MD 11/05/2018 Hospital Cardiology Encounter Massiel Fink RN Follow Up ([facility]) 09/13/2018 Telephone Cardiology Marty Trejo MD Results 09/13/2018 Documentation Cardiology from Last 3 Months Family History Medical History Relation Name Comments Heart Attack Brother Stroke Mother Relation Name Status Comments Brother Father Mother Social History Date Tobacco Use Types Packs/Day Years Used Never Smoker Smokeless Tobacco: Never Used Drinks/Week oz/Week Comments Alcohol Use No Sex Assigned at Date Recorded Not on file Industry Job Start Date Occupation Not on file Not on file Not on file Travel End Travel History Travel Start No recent travel history available. Last Filed Vital Signs Reading Time Taken Comments Vital Sign 96/62 05/04/2018 11:50 AM SENIOR MARKETING DATA ANALYST Blood Pressure 75 05/04/2018 11:50 AM SENIOR MARKETING DATA ANALYST Pulse 36.5 C (97.7 F) 05/01/2013 11:23 AM SENIOR MARKETING DATA ANALYST Temperature 18 03/07/2013 2:25 PM CDT Respiratory Rate 98% 05/01/2013 11:23 AM SENIOR MARKETING DATA ANALYST Oxygen Saturation - - Inhaled Oxygen Concentration 74.3 kg (163 lb 14.4 oz) 05/04/2018 11:50 AM SENIOR MARKETING DATA ANALYST Weight 167.6 cm (5' 6") 05/04/2018 11:50 AM SENIOR MARKETING DATA ANALYST Height 26.45 05/04/2018 11:50 AM SENIOR MARKETING DATA ANALYST Body Mass Index Plan of Treatment Health Maintenance Due Date Last Done Comments PHYSICAL (COMPREHENSIVE) 1941 EXAM DTAP/TDAP VACCINES (1 - 1952 Tdap) SHINGLES RECOMBINANT 1984 VACCINE (1 of 2) OSTEOPOROSIS 1999 SCREENING/MONITORING PNEUMONIA (PCV13/PPSV23) 1999 VACCINES (1 of 2 - PCV13) INFLUENZA VACCINE 03/19/2019 03/29/2007, 04/28/2004 Implants Device Identifier Shelf Expiration Date Model / Serial / Lot Implanted Type Area Manufactur er Pacemaker Pacemaker Results Not on filefrom Last 3 Months Insurance Type Payer Benefit Subscriber ID Effective Phone Address Plan / Dates Group Medicare MEDICARE MEDICARE xxxxxxxxxx 1999-P PART A AND resent B Indemnity GENERIC COMMERCIAL GENERIC xxxxxxxxxx 1999-P COMMERCIAL resent AETNA MEDICAID AETNA xxxxxxxxxxx 2018-P BETTER resent [place] 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 10/21/2011 1:46 PM Full Code 10/18/2011 9:49 AM Provider has discussed Code Status No, more discussion w/Patient or Family? needed
--- OUTSIDE RECORDS SUMMARY | 2018-12-05 14:21 | XMS REPORT | Encounter Summary ---
Author Author [facility] Organization [facility] Address Unknown Phone Unavailable Care Team Providers Care Vp Data Name Role Phone Dorian Muse MD Unavailable Ernesto Sosa MD 100 Melvin Monterroso MD Unavailable Unavailable Dana Birmingham RN Unavailable Unavailable Severiano Daniel DO Unavailable Yarely Vega MD PCP Reason for Visit * Reason Comments Results Encounter Details Care Team Description Date Type Department Marty Trejo MD [address] [facility] [id number] [place] [address] [phone] Results 09/13/2018 Documentation XDD CARDIOLOGY Social History Date Tobacco Use Types Packs/Day Years Used Never Smoker Smokeless Tobacco: Never Used Drinks/Week oz/Week Comments Alcohol Use No Sex Assigned at Date Recorded Not on file Industry Job Start Date Occupation Not on file Not on file Not on file Travel End Travel History Travel Start No recent travel history available. documented as of this encounter Progress Notes * Marty Trejo MD - 09/13/2018 4:28 PM CDT See recent [facility] transmission. We will have patient send another [facility] transmission to ensure her atrial arr hythmia was self-limited. Since on 08/31/18 her presenting EGM showed atrial flu tter. She is on anticoagulation. She has been rate controlled in the past when she is had recurrent arrhythmias. However she is also on amiodarone for rhythm contro l. If she is still in persistent atrial flutter or atrial fibrillation and has been so over the last week. Then we will recommend proceeding with DC synchronous c ardioversion and increasing her amiodarone transiently back to 200 mg daily. Also when we contact the patient we will determine if she is had any dialogue re garding her atrial arrhythmias with Dr. Gruber her primary chicken catcher in [facility]. documented in this encounter Plan of Treatment Not on filedocumented as of this encounter Visit Diagnoses Not on filedocumented in this encounter
--- OUTSIDE RECORDS SUMMARY | 2018-12-05 14:21 | XMS REPORT | Encounter Summary ---
Author Author [facility] Organization [facility] Address Unknown Phone Unavailable Care Team Providers Care Site Lead Name Role Phone Dorian Muse MD Unavailable Ernesto Sosa MD 100 Melvin Monterroso MD Unavailable Unavailable Dana Birmingham RN Unavailable Unavailable Severiano Daniel DO Unavailable Yarely Vega MD PCP Reason for Visit * Reason Comments Medication Refill refilled Amiodarone / [facility] Encounter Details Care Team Description Date Type Department Leann Nguyen, ballast inspector Refill (refilled Amiodarone / [facility]) 06/27/2018 Refill [facility] [address] [place] [id number] Social History Date Tobacco Use Types Packs/Day Years Used Never Smoker Smokeless Tobacco: Never Used Drinks/Week oz/Week Comments Alcohol Use No Sex Assigned at Date Recorded Not on file Industry Job Start Date Occupation Not on file Not on file Not on file Travel End Travel History Travel Start No recent travel history available. documented as of this encounter Miscellaneous Notes * Telephone Encounter - Leann Nguyen RN - 06/27/2018 10:36 AM SENIOR SHAREPOINT DEVELOPER Last Cardiology ov was 05/04/18 OR SHAREPOINT DEVELOPER documented in this encounter Plan of Treatment Not on filedocumented as of this encounter Visit Diagnoses Not on filedocumented in this encounter
--- OUTSIDE RECORDS SUMMARY | 2018-12-05 14:21 | XMS REPORT | Encounter Summary ---
Author Author [facility] Organization [facility] Address Unknown Phone Unavailable Care Team Providers Care Rag Sorter Name Role Phone Dorian Muse MD Unavailable Ernesto Sosa MD 100 Melvin Monterroso MD Unavailable Unavailable Dana Birmingham RN Unavailable Unavailable Severiano Daniel DO Unavailable Yarely Vega MD PCP Encounter Details Care Team Description Date Type Department Marty Trejo MD [address] [facility] [place] [address] [phone] 05/04/2018 [facility] [address] [facility] [address] [place] [address] Social History Date Tobacco Use Types Packs/Day Years Used Never Smoker Smokeless Tobacco: Never Used Drinks/Week oz/Week Comments Alcohol Use No Sex Assigned at Date Recorded Not on file Industry Job Start Date Occupation Not on file Not on file Not on file Travel End Travel History Travel Start No recent travel history available. documented as of this encounter Medications at Time of Discharge Start Date End Date Medication Sig Dispensed Refills alprazolam (XANAX) 0.25 Take 0.25 mg 0 mg tablet by mouth twice daily as needed. BUSPIRONE HCL (BUSPAR PO) Take 15 mg by 0 mouth twice daily. Cholecalciferol (Vitamin Take 5,000 0 D3) (VITAMIN D-3) 5,000 Units by unit tab mouth daily. cyanocobalamin (VITAMIN Inject 1 mL 0 B-12, RUBRAMIN) 1,000 into the mcg/mL injection muscle every 14 days. dabigatran (PRADAXA) 150 Take 150 mg 0 mg capsule by mouth twice daily. dexlansoprazole (+) Take 60 mg by 0 (DEXILANT) 60 mg capsule mouth daily. 07/08/2013 digoxin (LANOXIN) 125 mcg Take 1 Tab by 90 Tab 0 tablet mouth every 48 hours. donepezil (ARICEPT) 10 mg Take 10 mg by 0 tablet mouth At Bedtime Daily. Erythromycin 500 mg TbEC Take 1 tablet 0 by mouth at bedtime daily. furosemide (LASIX) 40 mg Take 40 mg by 0 tablet mouth daily. HYDROcodone/acetaminophen Take 1 tablet 0 (NORCO) 5/325 mg tablet by mouth every 6 hours as needed for Pain levothyroxine (SYNTHROID) Take 125 mcg 0 125 mcg tablet by mouth daily 30 minutes before breakfast. liothyronine (CYTOMEL) 5 Take 5 mcg by 0 mcg tab mouth twice daily. losartan (COZAAR) 100 mg Take 100 mg 0 tablet by mouth Daily. meloxicam(+) (MOBIC) 15 Take 15 mg by 0 mg tablet mouth daily. metoprolol XL (TOPROL XL) Take 50 mg by 0 50 mg extended release mouth daily. tablet [place]-3 Acid Ethyl Esters Take 1 g by 0 1 gram cap mouth as directed. Take 2g in the morning, 1g around noon and 1g at bedtime pantoprazole DR Take 40 mg by 0 (PROTONIX) 40 mg tablet mouth twice daily. potassium chloride SR Take 40 mEq 0 (K-DUR) 20 mEq tablet by mouth daily. sertraline (ZOLOFT) 50 mg Take 50 mg by 0 tablet mouth daily. sucralfate (CARAFATE) 1 Take 1 g by 0 gram tablet mouth at bedtime daily. 05/22/2017 06/27/2018 amiodarone (CORDARONE) Take 0.5 45 tablet 3 200 mg tablet tablets by mouth daily. Take with food. documented as of this encounter Plan of Treatment Not on filedocumented as of this encounter Procedures Comments Procedure Name Priority Date/Time Associated Diagnosis CHEST 2 VIEWS Routine 05/04/2018 Encounter for long-term 1:22 PM CANNON FIRE DIRECTION SPECIALIST (current) drug use documented in this encounter Results * CHEST 2 VIEWS (05/04/2018 1:22 PM CANNON FIRE DIRECTION SPECIALIST) Specimen Addenda Addendum by Can Marrero MD on 05/08/2018 1:00 PM Finalized by Can Marrero M.D. on 05/07/2018 11:00 AM. Dictated by Can Marrero M.D. on 05/07/2018 10:55 AM.Addendum: Clinical indications include long-term drug (amiodarone) use Finalized by Can Marrero M.D. on 05/08/2018 12:57 PM. Dictated by Can Marrero M.D. on 05/08/2018 12:56 PM. Impressions Performed At Stable chest radiograph demonstrating no acute cardiopulmonary abnormalities. [facility] Narrative Performed At CHEST 2 VIEWS [facility] History: z79.899 amiodarone use. Cardiac arrhythmia, Technique: PA and lateral views of the chest were obtained. Comparison: Comparison is made to an examination of 5-12 Findings: Dual-chamber pacemaker with its control unit left chest wall is noted. The locations of the tips of the atrial and ventricular leads appear appropriate. Atherosclerotic calcifications of the aortic arch are seen. There is no vascular congestion. No acute interstitial or alveolar opacities are identified. No parenchymal masses are detected. Hilar and mediastinal configurations are stable. There is no pleural fluid. There is tortuosity of the descending thoracic aorta. There is also a small hiatal hernia. Procedure Note Interface, Radiant Results - 05/08/2018 1:00 PM CANNON FIRE DIRECTION SPECIALIST CHEST 2 VIEWS History: z79.899 amiodarone use. Cardiac arrhythmia, Technique: PA and lateral views of the chest were obtained. Comparison: Comparison is made to an examination of 5-12 Findings: Dual-chamber pacemaker with its control unit left chest wall is noted. The locations of the tips of the atrial and ventricular leads appear appropriate. Atherosclerotic calcifications of the aortic arch are seen. There is no vascular congestion. No acute interstitial or alveolar opacities are identified. No parenchymal masses are detected. Hilar and mediastinal configurations are stable. There is no pleural fluid. There is tortuosity of the descending thoracic aorta. There is also a small hiatal hernia. IMPRESSION Stable chest radiograph demonstrating no acute cardiopulmonary abnormalities. Performing Organization Address City/State/Zipcode Phone Number [facility] documented in this encounter Visit Diagnoses Diagnosis Encounter for long-term (current) drug use Encounter for long-term (current) use of other medications documented in this encounter
--- OUTSIDE RECORDS SUMMARY | 2018-12-05 14:21 | XMS REPORT | Encounter Summary ---
Author Author [facility] Organization [facility] Address Unknown Phone Unavailable Care Team Providers Care Quarter Backer Name Role Phone Dorian Muse MD Unavailable Ernesto Sosa MD 100 Melvin Monterroso MD Unavailable Unavailable Dana Birmingham RN Unavailable Unavailable Severiano Daniel DO Unavailable Yarely Vega MD PCP Reason for Visit * Reason Comments Amiodarone Monitoring completed 05/04/18 next due 11/01/18 Encounter Details Care Team Description Date Type Department Sasha Chen RN Amiodarone Monitoring (completed 05/04/18 next due 11/01/18) 05/04/2018 Documentation [facility] [address] [facility] [address] [place] [address] Social History Date Tobacco Use Types Packs/Day [...] Progress Notes * Sasha Chen RN - 05/04/2018 5:10 PM OPAL POLISHER Amiodarone Monitoring status as of 05/04/18: Amiodarone monitoring complete. Next amiodarone review is due in 180 days. Most recent lab results Lab Results Component Value Date/Time AST 17 05/04/2018 01:11 PM ALT 18 05/04/2018 01:11 PM TSH 2.5 05/04/2018 01:11 PM TSH3G 5.02 (H) 05/18/2017 03:14 PM JFDCN3F 1.0 05/04/2018 01:11 PM Procedures Last chest X-Ray: 05/04/18 Last PFT: Dr Trejo deferred at this time Last eye exam: POLISHER documented in this encounter Plan of Treatment Not on filedocumented as of this encounter Visit Diagnoses Not on filedocumented in this encounter
--- OUTSIDE RECORDS SUMMARY | 2018-12-05 14:21 | XMS REPORT | Encounter Summary ---
Author Author [facility] Organization [facility] Address Unknown Phone Unavailable Care Team Providers Care Computer Scientist Name Role Phone Dorian Muse MD Unavailable Ernesto Sosa MD [address] Melvin Monterroso MD Unavailable Unavailable Dana Birmingham RN Unavailable Unavailable Severiano Daniel DO Unavailable Yarely Vega MD PCP Reason for Visit * Reason Comments Follow Up [facility] Encounter Details Care Team Description Date Type Department Massiel Fink RN [phone] Follow Up ([facility]) 09/13/2018 Telephone [facility] [address] [place] [address] [address] [place] [address] Social History Date Tobacco Use Types Packs/Day [...] encounter Miscellaneous Notes * Telephone Encounter - Stacey Silverman RN - 09/14/2018 2:41 PM CDT Error / no addendum today based on conversation below I will flag team for f/u M onday if transmission not recieved * Telephone Encounter - Stacey Silverman RN - 09/14/2018 2:40 PM CDT ----- Message from Massiel Fink RN sent at 09/13/2018 5:21 PM CDT ----- Regarding: remote See MPE note below- I spoke with her daughter and she will help her mom send it in, possibly tonight, but more than likely on Monday evening. Nathaly ----- Message ----- From: Marty Trejo MD Sent: 09/13/2018 4:29 PM To: Massiel Fink RN, Sasha Chen RN We will have patient send another [facility] [...] amiodarone transiently back to 200 mg daily. ##Also when we contact the patient we will determine if she is had any dialogue regarding her atrial arrhythmias with Dr. Gruber her primary salon manager in [facility]. Thank you * Telephone Encounter - Massiel Fink RN - 09/13/2018 5:20 PM CDT I spoke with patients daughter. She said she may be able to send it tonight, bu t will probably not be with her mom until tomorrow evening. * Telephone Encounter - Massiel Fink RN - 09/13/2018 5:16 PM CDT ----- Message from Marty Trejo MD sent at 09/13/2018 4:29 PM CDT ----- We will have patient send another [facility] [...] amiodarone transiently back to 200 mg daily. ##Also when we contact the patient we will determine if she is had any dialogue regarding her atrial arrhythmias with Dr. Gruber her primary salon manager in [facility]. Thank you documented in this encounter Plan of Treatment Not on filedocumented as of this encounter Visit Diagnoses Not on filedocumented in this encounter
--- OUTSIDE RECORDS SUMMARY | 2018-12-05 14:21 | XMS REPORT | Encounter Summary ---
Author Author [facility] Organization [facility] Address Unknown Phone Unavailable Care Team Providers Care Food Supervisor Name Role Phone Dorian Muse MD Unavailable Ernesto Sosa MD 100 Melvin Monterroso MD Unavailable Unavailable Dana Birmingham RN Unavailable Unavailable Severiano Daniel DO Unavailable Yarely Vega MD PCP Reason for Visit * Reason Comments Remote Monitoring scheduled transmission rcv'd. Questions Encounter Details Care Team Description Date Type Department Brandon Alanis RN Remote Monitoring Questions (scheduled transmission rcv'd. ) 08/06/2018 Telephone [facility] [address] [address] Social History Date Tobacco Use Types Packs/Day [...] encounter Miscellaneous Notes * Telephone Encounter - Brandon Alanis RN - 08/06/2018 12:38 PM CIVIL TECHNICIAN Patient scheduled [facility] remote transmission was received and is pending staff review. Patient/daughter notified. DB. L TECHNICIAN * Telephone Encounter - Brandon Alanis RN - 08/06/2018 12:38 PM CIVIL TECHNICIAN ----- Message from Annie Marie LPN sent at 08/06/2018 11:17 AM CIVIL TECHNICIAN ----- Regarding: Remote ? VM from daughter Dipika on triage line. She sent transmission around 10:42am, did we get it. Home monitor keeps showing green across. Call Dipika back at # [phone]. L TECHNICIAN documented in this encounter Plan of Treatment Not on filedocumented as of this encounter Visit Diagnoses Not on filedocumented in this encounter
--- OUTSIDE RECORDS SUMMARY | 2018-12-05 14:21 | XMS REPORT | Encounter Summary ---
Author Author [facility] Organization [facility] Address Unknown Phone Unavailable Care Team Providers Care Relocation Commissioner Name Role Phone Dorian Muse MD Unavailable Ernesto Sosa MD 100 Melvin Monterroso MD Unavailable Unavailable Dana Birmingham RN Unavailable Unavailable Severiano Daniel DO Unavailable Yarely Vega MD PCP Encounter Details Care Team Description Date Type Department Ernesto Sosa MD 4000 [facility] [place] [address] [phone] 11/05/2018 [facility] Cardiovascular Medicine Encounter Remote Device Check [phone] Social History Date Tobacco Use Types Packs/Day [...] tablet by mouth twice daily as needed. 06/27/2018 amiodarone (CORDARONE) Take one-half 45 tablet 3 200 mg tablet tablet by mouth daily. Take with food. BUSPIRONE HCL (BUSPAR PO) Take 15 mg [...] 50 mg extended release mouth daily. tablet [place]-3 Acid Ethyl Esters Take 1 g by [...] 0 gram tablet mouth at bedtime daily. documented as of this encounter Plan of Treatment Order Schedule Name Type Priority Associated Diagnoses 1 Occurrences starting 11/05/2018 DEVICE EVALUATION - Device Check Routine Cardiac pacemaker in situ REMOTE PPM Paroxysmal atrial fibrillation (HCC) documented as of this encounter Visit Diagnoses Diagnosis Cardiac pacemaker in situ Paroxysmal atrial fibrillation (HCC) Atrial fibrillation documented in this encounter
--- OUTSIDE RECORDS SUMMARY | 2018-12-05 14:21 | XMS REPORT | Encounter Summary ---
Author Author [facility] Organization [facility] Address Unknown Phone Unavailable Care Team Providers Care Offal Trimmer Name Role Phone Dorian Muse MD Unavailable Ernesto Sosa MD 100 Melvin Monterroso MD Unavailable Unavailable Dana Birmingham RN Unavailable Unavailable Severiano Daniel DO Unavailable Yarely Vega MD PCP Encounter Details Care Team Description Date Type Department Ernesto Sosa MD 4000 [facility] [place] [address] [phone] 08/06/2018 [facility] Cardiovascular Medicine Encounter Remote Device Check [phone] Social History Date Tobacco Use Types Packs/Day [...] 50 mg extended release mouth daily. tablet [place]-3 Acid Ethyl Esters Take 1 g by [...] Comments Procedure Name Priority Date/Time Associated Diagnosis DEVICE EVALUATION - Routine 08/31/2018 Cardiac pacemaker in situ REMOTE PPM 10:05 AM CDT Paroxysmal atrial fibrillation (HCC) documented in this encounter Results * DEVICE EVALUATION - REMOTE PPM (08/31/2018 10:05 AM CDT) [facility] Signature Generator Model REVO MRI [id number] OTHER OUTSIDE # LAB Generator [id number] OTHER OUTSIDE Serial # LAB Generator 10/18/2011 OTHER OUTSIDE Implnat Date LAB FÉLIX/EOL INTERNAL COMMUNICATIONS WRITER=2.81V OTHER OUTSIDE Indicator LAB Generator Medtronic OTHER OUTSIDE Medical Records Administrator LAB Generator No OTHER OUTSIDE Investigational LAB Wireless No OTHER OUTSIDE Generator LAB Device Type DDD-PM OTHER OUTSIDE LAB Atrial Lead CAPSUREFIX MRI SURESCAN OTHER OUTSIDE Model # 5086-52cm LAB Atrial Lead [id number] OTHER OUTSIDE Serial # LAB Atrial Lead 10/18/2011 OTHER OUTSIDE Implant Date LAB Atrial Lead 10 OTHER OUTSIDE Diaph. LAB Stimulation Atrial Lead Medtronic OTHER OUTSIDE Medical Records Administrator LAB Atrial Lead No OTHER OUTSIDE Investigational LAB Atrial Lead active fixation OTHER OUTSIDE Fixation LAB Atrial Lead right atrial appendage OTHER OUTSIDE Location LAB Atrial Lead Pin IS1 OTHER OUTSIDE Connector LAB Atrial Lead Bipolar OTHER OUTSIDE Polarity LAB RV Lead Model # CAPSUREFIX MRI SURESCAN OTHER OUTSIDE 5086-58cm LAB RV Lead Serial [id number] OTHER OUTSIDE # LAB RV Lead Implant 10/18/2011 OTHER OUTSIDE Date LAB RV Lead Diaph. 10 OTHER OUTSIDE Stimulation LAB RV Lead Medtronic OTHER OUTSIDE Medical Records Administrator LAB RV Lead No OTHER OUTSIDE Investigational LAB RV Lead active fixation OTHER OUTSIDE Fixation LAB RV Lead RV low septum OTHER OUTSIDE Location LAB RV Lead Pin IS1 OTHER OUTSIDE Connector ICD LAB Device Mode DDDR OTHER OUTSIDE LAB Lower Rate 70 OTHER OUTSIDE Limit LAB Upper Rate 130 OTHER OUTSIDE Limit LAB Sensor Rate 130 OTHER OUTSIDE Limit LAB Pace AV Delay 180 OTHER OUTSIDE LAB Sense AV Delay 150 OTHER OUTSIDE LAB VT Monitor 150 OTHER OUTSIDE LAB Mode Switch >150 OTHER OUTSIDE (bpm) LAB High V Rate >150 OTHER OUTSIDE Detect LAB Mode Switch On OTHER OUTSIDE Status LAB Device Ernesto Sosa M.D. OTHER OUTSIDE Implanted By LAB Pacemaker No OTHER OUTSIDE Dependant LAB Date of Last 05/04/18 OTHER OUTSIDE Programming LAB HF Patient No OTHER OUTSIDE LAB Date of Last 08/06/18 OTHER OUTSIDE Remote Check LAB Remote Yes OTHER OUTSIDE Monitoring? LAB EP Device Dr. Dhaliwal OTHER OUTSIDE Followed by LAB Name EP Device MAC OTHER OUTSIDE Followed By LAB Device [facility] OTHER OUTSIDE [place] [facility] Transmitter Compatible On AntiCoag 10/10/16 OTHER OUTSIDE Date LAB Known Diagnosed Yes OTHER OUTSIDE AFib LAB On Yes OTHER OUTSIDE Anticoagulation LAB Generator MRI Yes OTHER OUTSIDE Conditional LAB Atrial Lead MRI Yes OTHER OUTSIDE Conditional LAB LV Lead MRI Yes OTHER OUTSIDE Conditional LAB Remote Check? Yes OTHER OUTSIDE LAB Next Remote 11/05/18 OTHER OUTSIDE Check Due LAB Device Remote Yes OTHER OUTSIDE Manual LAB Downloads Specimen Narrative Performed At OTHER OUTSIDE LAB Current monitoring period 08/06/18-11/04/18 On Pradaxa and amio [09/17/2018 4:46:14 PM - DURAN SOLORIO] [facility] remote transmission 09/14/18 rec'd. Presenting egm shows Apaced/ V paced rhythm at 88bpm. Events since 08/06/18 Atrial : treated 77, longest 12 hrs September 12 shows Afib7 hrs 11 min 52 sec., V rates ave 70-90's bpm See attached list for > details Monitored 11 events, 83 sec. Waterflow is 12.7% compared to 12.5% prior. Pace terminated events 37.7% compared to 46.9% prior. Ventricular: 0 Reported to EP Rn for follow up wFelix ROGERS & patient. Routed to Dr Dhaliwal for co sign, review. [09/13/2018 4:22:44 PM - BERTHA DHALIWAL] We will have patient send another [facility] transmission to ensure her atrial arrhythmia was self-limited.Since on 08/31/18 her presenting EGM showed atrial flutter. She is on anticoagulation.She has been rate controlled in the past when she is had recurrent arrhythmias.However she is also on amiodarone for rhythm control. If she is still in persistent atrial flutter or atrial fibrillation and has been so over the last week.Then we will recommend proceeding with DC synchronous cardioversion and increasing her amiodarone transiently back to 200 mg daily. Also when we contact the patient we will determine if she is had any dialogue regarding her atrial arrhythmias with Dr. Gruber her primary shampoo person in [facility]. [08/31/2018 11:15:26 AM - JYOTI KUMAR] Please see scanned data sheets for further review. Scheduled [facility] transmission received forDual chamber PPM. Device function appears appropriate. Presenting EGM shows Aflutter with GPS NAVIGATION INSTALLER 105bpm, (currently MS).Episode started 8:09am so currently ongoing 2.5hrs. Battery:2.90v (FÉLIX is 2.81v) Events noted since 05/04/18: Atrial:242 treated AT/AF (45.9% successful), 48 monitored.AT/AF burden 12.5%, multiple daily episodes lasting a couple minutes to several hours. Longest on list 17 hrs on 07/24/18. EGMs confirm AFlutter, AFib with controlled V rates, pacing. Ventricular:none. RV Pacing%: 99.9% Next follow up appt pending Apr 2019 with MPE. Next remote scheduled for 3mo. Results routed to Dr. Dhaliwal for signature and review. _ Performing Organization Address City/State/Zipcode Phone Number OTHER OUTSIDE LAB documented in this encounter Visit Diagnoses Diagnosis Cardiac pacemaker in situ Paroxysmal atrial fibrillation (HCC) Atrial fibrillation documented in this encounter
--- OUTSIDE RECORDS SUMMARY | 2018-12-05 14:22 | XMS REPORT | Encounter Summary ---
Author Author [facility] Organization [facility] Address Unknown Phone Unavailable Care Team Providers Care Aircraft Design Engineer Name Role Phone Dorian Muse MD Unavailable Ernesto Sosa MD 100 Melvin Monterroso MD Unavailable Unavailable Dana Birmingham RN Unavailable Unavailable Severiano Daniel DO Unavailable Yarely Vega MD PCP Reason for Visit * Reason Comments Labs Only Encounter Details Care Team Description Date Type Department Encounter for long-term (current) drug use; Hypertension, unspecified type 05/04/2018 Lab Only [facility] [address] [place] [address] [address] [place] [address] Social History Date Tobacco Use Types Packs/Day Years Used Never Smoker Smokeless Tobacco: Never Used Drinks/Week oz/Week Comments Alcohol Use No Sex Assigned at Date Recorded Not on file Industry Job Start Date Occupation Not on file Not on file Not on file Travel End Travel History Travel Start No recent travel history available. documented as of this encounter Plan of Treatment Not on filedocumented as of this encounter Procedures Comments Procedure Name Priority Date/Time Associated Diagnosis THYROID STIMULATING Routine 05/04/2018 Encounter for long-term HORMONE-TSH 1:11 PM PADDED PRODUCTS FINISHER (current) drug use FREE T4 (FREE THYROXINE) Routine 05/04/2018 Encounter for long-term ONLY 1:11 PM PADDED PRODUCTS FINISHER (current) drug use BNP (B-TYPE NATRIURETIC Routine 05/04/2018 Hypertension, unspecified PEPTI) 1:11 PM PADDED PRODUCTS FINISHER type COMPREHENSIVE METABOLIC Routine 05/04/2018 Encounter for long-term PANEL 1:11 PM PADDED PRODUCTS FINISHER (current) drug use documented in this encounter Results * THYROID STIMULATING HORMONE-TSH (05/04/2018 1:11 PM PADDED PRODUCTS FINISHER) TSH 2.5 0.3 - 5.0 uIU/mL [facility] Specimen Blood Performing Organization Address [facility] Phone Number [facility] [id number] [place] [address], [place] [address] * FREE T4 (FREE THYROXINE) ONLY (05/04/2018 1:11 PM PADDED PRODUCTS FINISHER) T4-Free 1.0 0.7 - 1.8 ng/dL [facility] Specimen Performing Organization Address [facility] Phone Number [facility] [id number] [place] [address] * BNP (B-TYPE NATRIURETIC PEPTI) (05/04/2018 1:11 PM PADDED PRODUCTS FINISHER) B Type 42.5 0 - 100 PG/ML [facility] Natriuretic Peptide Specimen Blood Performing Organization Address [facility] Phone Number [facility] [address] [place] [address] * COMPREHENSIVE METABOLIC PANEL (05/04/2018 1:11 PM PADDED PRODUCTS FINISHER) Sodium 140 135 - 148 mEq/L [facility] Potassium 4.9 3.5 - 5.1 mEq/L [facility] Chloride 106 98 - 108 mEq/L [facility] Blood Urea 38 (H) 7 - 25 mg/dL [facility] Nitrogen Glucose 102 (H) 70 - 100 mg/dL [facility] Calcium 10.00 8.60 - 10.30 mg/dL [facility] Total Protein 7.90 6.40 - 8.30 g/dL [facility] Total Bilirubin 0.40 0.30 - 1.20 mg/dL [facility] Albumin 3.60 3.50 - 5.50 g/dL [facility] Alk Phosphatase 83 50 - 136 U/L [facility] AST (SGOT) 17 7 - 40 U/L [facility] ALT (SGPT) 18 7 - 56 U/L [facility] eGFR Non 31.27 [facility] CO2 26 21 - 32 Mounika/L [facility] Creatinine 1.66 (H) 0.40 - 1.00 mg/dL [facility] Specimen Blood Performing Organization Address City/State/Zipcode Phone Number [facility] [address] [place] [address] documented in this encounter Visit Diagnoses Diagnosis Encounter for long-term (current) drug use Encounter for long-term (current) use of other medications Hypertension, unspecified type documented in this encounter
--- OUTSIDE RECORDS SUMMARY | 2018-12-05 14:22 | XMS REPORT | Encounter Summary ---
Author Author [facility] Organization [facility] Address Unknown Phone Unavailable Care Team Providers Care Instructional Leader Name Role Phone Dorian Muse MD Unavailable Ernesto oSsa MD 100 Melvin Monterroso MD Unavailable Unavailable Dana Birmingham RN Unavailable Unavailable Severiano Daniel DO Unavailable Yarely Vega MD PCP Encounter Details Care Team Description Date Type Department Marty Trejo MD 4000 [facility] [place] [address] [phone] 05/04/2018 [facility] [address] [place] [address] [address] [place] [address] Social History Date Tobacco Use Types Packs/Day [...] 50 mg extended release mouth daily. tablet [place]-3 Acid Ethyl Esters Take 1 g by [...] Priority Date/Time Associated Diagnosis DEVICE EVALUATION - PPM Routine 05/04/2018 Paroxysmal atrial 11:32 AM COLLABORATIVE PHYSICIAN fibrillation (HCC) Cardiac pacemaker in situ documented in this encounter Results * DEVICE EVALUATION - PPM (05/04/2018 11:32 AM COLLABORATIVE PHYSICIAN) [facility] Signature Generator Model REVO MRI [id number] OTHER OUTSIDE # LAB Generator [id number] OTHER OUTSIDE Serial # LAB Generator 10/18/2011 OTHER OUTSIDE Implnat Date LAB FÉLIX/EOL WIRE PULLER=2.81V OTHER OUTSIDE Indicator LAB Generator Medtronic OTHER OUTSIDE Bulk Picker LAB Generator No OTHER OUTSIDE Investigational LAB Wireless No OTHER OUTSIDE Generator LAB Device Type DDD-PM OTHER OUTSIDE LAB Atrial Lead CAPSUREFIX MRI SURESCAN OTHER OUTSIDE Model # 5086-52cm LAB Atrial Lead [id number] OTHER OUTSIDE Serial # LAB Atrial Lead 10/18/2011 OTHER OUTSIDE Implant Date LAB Atrial Lead 10 OTHER OUTSIDE Diaph. LAB Stimulation Atrial Lead Medtronic OTHER OUTSIDE Bulk Picker LAB Atrial Lead No OTHER OUTSIDE Investigational LAB Atrial Lead active fixation OTHER OUTSIDE Fixation LAB Atrial Lead right atrial appendage OTHER OUTSIDE Location LAB Atrial Lead Pin IS1 OTHER OUTSIDE Connector LAB Atrial Lead Bipolar OTHER OUTSIDE Polarity LAB RV Lead Model # CAPSUREFIX MRI SURESCAN OTHER OUTSIDE 5086-58cm LAB RV Lead Serial [id number] OTHER OUTSIDE # LAB RV Lead Implant 10/18/2011 OTHER OUTSIDE Date LAB RV Lead Diaph. 10 OTHER OUTSIDE Stimulation LAB RV Lead Medtronic OTHER OUTSIDE Bulk Picker LAB RV Lead No OTHER OUTSIDE Investigational [...] No OTHER OUTSIDE LAB Date of Last 03/20/18 OTHER OUTSIDE Remote Check LAB Remote Yes OTHER OUTSIDE Monitoring? LAB EP Device Dr. Trejo OTHER OUTSIDE Followed by LAB Name EP Device MAC OTHER OUTSIDE Followed By LAB Device [facility] OTHER OUTSIDE [place] LAB Transmitter Compatible On AntiCoag 10/10/16 OTHER OUTSIDE Date LAB Known Diagnosed Yes OTHER OUTSIDE AFib LAB On Yes OTHER OUTSIDE Anticoagulation LAB Generator MRI Yes OTHER OUTSIDE Conditional LAB Atrial Lead MRI Yes OTHER OUTSIDE Conditional LAB LV Lead MRI Yes OTHER OUTSIDE Conditional LAB Underlying Mobitz II ASVS 51 bpm with OH OTHER OUTSIDE Rhythm 400 ms on conducted beats and LAB occasional dropped beat. -VS% <1 OTHER OUTSIDE LAB -SILK CONDITIONER% 11.4 OTHER OUTSIDE LAB -VS% <1 OTHER OUTSIDE LAB AP-SILK CONDITIONER% 88.3 OTHER OUTSIDE LAB # Mode S. 1167 treated/299 monitored OTHER OUTSIDE Events LAB Time in AT/AF 11.3% OTHER OUTSIDE LAB V Rate in AT/AF >100 <10% OTHER OUTSIDE LAB Single PVSc 2.8/hr OTHER OUTSIDE LAB PVC runs 0.3/hr OTHER OUTSIDE LAB Battery Voltage 2.90 OTHER OUTSIDE LAB A Sense mv 2.9 OTHER OUTSIDE LAB A Capture V 1.0 OTHER OUTSIDE LAB A Capture ms 0.4 OTHER OUTSIDE LAB A Lead ohms 352 OTHER OUTSIDE LAB RV Sense mv 14.8 OTHER OUTSIDE LAB RV Capture V <0.5 OTHER OUTSIDE LAB RV Capture ms 0.4 OTHER OUTSIDE LAB RV Lead ohms 520 OTHER OUTSIDE LAB Counters Clrd Yes OTHER OUTSIDE LAB Device Function Yes OTHER OUTSIDE WNL LAB Device No OTHER OUTSIDE Reprogram LAB Next Remote 08/06/17 OTHER OUTSIDE Check Due LAB Ao Voltage 2.0 OTHER OUTSIDE LAB AO Pulse Width 0.4 OTHER OUTSIDE LAB RV Voltage 2.0 OTHER OUTSIDE LAB RV Pulse Width 0.4 OTHER OUTSIDE LAB # High V Events 1 OTHER OUTSIDE LAB Estimated WIRE PULLER is 2.81 OTHER OUTSIDE Longevity LAB Initial Rhythm APVP 71 bpm OTHER OUTSIDE LAB Programming? Yes OTHER OUTSIDE LAB Interrogation? Yes OTHER OUTSIDE LAB Remote Check? No OTHER OUTSIDE LAB Specimen Narrative Performed At OTHER OUTSIDE LAB [05/04/2018 11:42:22 AM - JIMMY DALY] In office programming for dual chamber Medtronic PPM. Device function: Appears normal. Presenting EGM shows APVP 71 bpm. Events noted since 05/18/17: Atrial:1167 treated and 299 monitored AT/AF episodes. 11.3% AT/AF burden. V rate > 100 <10%. Known PAF. Pt is anticoagulated. Ventricular:One NSVT 07/29/17 lasted 3 seconds, 172 bpm. Egm showed NSVT. Programming changes: none [facility] remote monitoring is in place. Reviewed with MPE in clinic and routed check for cosign. Performing Organization Address City/State/Zipcode Phone Number OTHER OUTSIDE LAB documented in this encounter Visit Diagnoses Diagnosis Paroxysmal atrial fibrillation (HCC) Atrial fibrillation Cardiac pacemaker in situ documented in this encounter
--- OUTSIDE RECORDS SUMMARY | 2018-12-05 14:22 | XMS REPORT | Encounter Summary ---
Author Author [facility] Organization [facility] Address Unknown Phone Unavailable Care Team Providers Care Oracle Business Analyst Name Role Phone Dorian Muse MD Unavailable Ernesto Sosa MD 100 Melvin Monterroso MD Unavailable Unavailable Dana Birmingham RN Unavailable Unavailable Severiano Daniel DO Unavailable Yarely Vega MD PCP Reason for Visit * Reason Comments Remote ICD/PM Check [facility] Encounter Details Care Team Description Date Type Department Jason Burgess RN Remote ICD/PM Check ([facility] Monitor) 03/21/2018 Telephone [facility] [address] [address] Social History Date Tobacco Use [...] encounter Miscellaneous Notes * Telephone Encounter - Jason Burgess RN - 03/21/2018 1:33 PM CDT Attempted to contact LISET Bar that her mother's monitor was working and we re ceived the initial transmission. I also left call back number for her as well. * Telephone Encounter - Jason Burgess RN - 03/21/2018 1:32 PM CDT ----- Message from Annie Marie LPN sent at 03/20/2018 5:06 PM CDT ----- Regarding: New monitor VM from daughter Dipika # [phone]. Said that she got new monitor and will send transmission Monday evening. She wanted to know if you will call her after 4:30pm on Monday to walk her th rough it so she does it right. documented in this encounter Plan of Treatment Not on filedocumented as of this encounter Visit Diagnoses Not on filedocumented in this encounter
--- OUTSIDE RECORDS SUMMARY | 2018-12-05 14:22 | XMS REPORT | Encounter Summary ---
Author Author [facility] Organization [facility] Address Unknown Phone Unavailable Care Team Providers Care Policy And Planning Manager Name Role Phone Dorian Muse MD Unavailable Ernesto Sosa MD 100 Melvin Monterroso MD Unavailable Unavailable Dana Birmingham RN Unavailable Unavailable Severiano Daniel DO Unavailable Yarely Vega MD PCP Reason for Referral * (Routine) Referred By Contact Referred To Contact Status Reason Specialty Diagnoses / Procedures Marty Trejo MD [address] [place] [id number] New Request Diagnoses Paroxysmal atrial fibrillation (HCC) P rocedures REQUEST FOR CARDIOLOGY APPOINTMENT Reason for Visit * Reason Comments Atrial fibrillation Device Check Encounter Details Care Team Description Date Type Department Marty Trejo MD [address] [place] [phone] Atrial fibrillation; Device Check 05/04/2018 Office Visit The [facility] [address] [place], [place] [address] Social History Date Tobacco Use Types Packs/Day Years Used Never Smoker Smokeless Tobacco: Never Used Drinks/Week oz/Week Comments Alcohol Use No Sex Assigned at Date Recorded Not on file Industry Job Start Date Occupation Not on file Not on file Not on file Travel End Travel History Travel Start No recent travel history available. documented as of this encounter Last Filed Vital Signs Reading Time Taken Comments Vital Sign 96/62 05/04/2018 11:50 AM PC ANALYST Blood Pressure 75 05/04/2018 11:50 AM PC ANALYST Pulse - - Temperature - - Respiratory Rate - - Oxygen Saturation - - Inhaled Oxygen Concentration 74.3 kg (163 lb 14.4 oz) 05/04/2018 11:50 AM PC ANALYST Weight 167.6 cm (5' 6") 05/04/2018 11:50 AM PC ANALYST Height 26.45 05/04/2018 11:50 AM PC ANALYST Body Mass Index documented in this encounter Patient Instructions * Patient Instructions* Daisy Garcia MA - 05/04/2018 11:30 AM PC ANALYST Please have your labs drawn today. CMP, BNP, TSH, Free T4 Chest Xray I'll plan for a follow up clinic visit in 1 year, or sooner if you're having que stions or problems. If you have any questions or concerns, please call Dr. Trejo's nurse at . It is ok to leave a message at this number and his nurse will return your call. You can also reach us through [employer]. Confirm if the medications you are taking match our list. Please call our office if they do not. Please follow up with Dr. Gruber in the interim. Please fax your current medication list to [phone] Attn: Sasha Rosado or Nathaly Petit Also please email your current medication list to [email or web address] ANALYST documented in this encounter Progress Notes * Marty Trejo MD - 05/04/2018 11:30 AM PC ANALYST Date of Service: 05/04/2018 Faiza Nation is a 83 y.o. female. HPI I had the pleasure of seeing your patient Faiza Nation in the [facility] as a part of the [facility] [place] office today fo r follow up regarding her Atrial Fibrillation and Permanent Pacemaker. Her Primary Accounting Methods Analyst is my friend and colleague, Dr. Gruber in [place], [place]. Ms. Nation is an exceptionally pleasant 82 y.o. Female, who is accompanied by h er equally pleasant daughter. The past medical history and data below has been reviewed and updated by me wi th new events for today's visit. Her PMHx briefly includes: Paroxysmal Atrial Fibrillation; SND S/P Medtronic P PM-- Programmed AAIR (10/18/11); Prior Reveal ILR-- Removed at PPM Implant; Myxoma tous Mitral Valve Disease; Non-Obstructive Mild-Moderate CAD by Cardiac Cath (2012); Negative Carotid Duplex (11/2015); Hypertension; Hyperlipidemia; Hypothyro idism; Prior GI Bleed while on Warfarin-- GERD/PUD/Hiatal Hernia; and Dementia. NOTE: When her device was programmed DDDR, she had a markedly prolonged First Degree AV Block up to 410 ms during A-only pacing. Shehas a [id number] score of 4:Age (x2), Female, HTN. Prior GI Bleed while on Warfarin. To Review Detailed Updated PMHx see below the ASSESSMENT AND PLAN section of robert s note. She STATES she has been having issues with taste, commenting that she feels like she is not able to taste foods as well as she used. She asked Dr. Gruber about t his and she inquired whether this could be related to the Amiodarone. She reports a history of COPD. She sleeps in a chair propped up using pillows an d states this helps improve her breathing at night. She reports on episode of right shoulder pain with significant hematoma about si x weeks ago, prompting her to present to the ED where her evaluation was negativ e for DVT. She denies any chest discomfort, shortness of breath, palpitations, lightheadedn ess, near syncope or syncope, PND or orthopnea. FHx, SHx and ROS documented and I have reviewed, with some pertinent features to include: No FHx of premature CAD. She is a Non-Smoker. Most pertinent ROS is included/discussed throughout the note, e.g. HPI and A/P. ASSESSMENT AND PLAN: -- Orthopnea -- PAFIB -- Anticoagulation -- Amiodarone Therapy -- Medtronic DDDR Permanent Pacemaker -- Prior Increased LFTs -- NSVT -- Hypertension Ms. Nation is actually doing well from the arrhythmia standpoint. She does hav e an A. fib burden of approximately 11% but she is adequately rate controlled an d remains on anticoagulation and appears to be asymptomatic. Therefore, I would not make any adjustments in her medical regimen at this time. She does have complaints of significant orthopnea stating she has had a sleep in a chair especially. On exam she does not have evidence of clear volume overload outside of some mild ankle and pedal edema. But we will check a BNP and CMP. The CMP also will all ow us to follow-up on her LFTs. If she has not had recent TSH will also do TFTs . If she has not had a chest x-ray within the last year we will obtain that as thais krishnamurthy All a part of her amiodarone follow-up. She brought up issues with taste or lack thereof. I do not think that her ageus ia is related to amiodarone or any of her other cardiac medications. It is not a complaint that I have heard in the past. Upon simple review of potential side effects I also do not see it listed. Of course that does not mean it cannot be the case but I think it is unlikely. I gave her the opportunity to follow-up just with Dr. Gruber going forward but hugh timmons wants to continue annual follow-up with me as well as her follow-up with Dr. Akanksha day. PLAN: -- We will obtain labs including a CMP, BMP, TSH and a Free T4 -- We will obtain a PA and Lateral CXR if she has not had one within the last ye ar. -- She will contact our office to let us know which medications she is currently taking and not taking. Ms. Nation was educated regarding plan of care. She was instructed to call our office with any questions or concerns, as well as to notify us of any new or wor sening symptoms. She verbalized understanding. I appreciate the opportunity to participate in the care of your patient. Please do not hesitate to contact me directly if you have any questions or furth er insights into her care. I have scheduled her follow-up with me in 12 month(s ). She will also continue to follow up with Dr. Gruber. DETAILED UPDATED PMHx: Regarding her AFIB, Device Hx, Prior Sxs of CP, etc:Please see Problem List and Prior OV notes including 12/31/15 and Initial Consultation note for jm d etail. However, briefly: -- 2010: Sxs of palpitations -->TerraSky Reveal Implantable Looping Monitor Implanted by Dr. Gruber -->ILR Documented Intermittent AFIB and Bradycardia/Pauses. -- 2011: Medtronic PPMImplanted by Dr. Sosa-- originally programmed DDDR, b ut later changed to AAIR for markedly prolonged First Degree AV Block up to 410 ms during A-only pacing. Initiated Sotalol. -- 2012: Stress Imaging for Sxs of CP ([facility]): Reportedly with Normal LV Funct ion and No Evidence of Significant Ischemia. -- 2012: Echo: LVEF 70%. LA Dimension 4.3 cm. Myxomatous MV Degeneration. Se ptal and Posterior Wall Thickness 1 cm. -- 12/2012: Cardiac Cath: 30% Mid-LAD, 40%-50% RCA diffusely. -- 06/2013: EP Consultation: Recurrent AFIB -->Reinitiated Metoprolol. -- 09/2013: Elevated Digoxin level -->Changed to [id number] dosing. -- 10/2014: Recurrent AFIB -->DC'ed Sotalol, Initiated Amiodarone --> Improved AFIB [place]. -- 05/2015: Sxs of chest discomfort --> Presented to ED in [place], [place]. Her evaluation was apparently unremarkable. She followed up with Dr. Nieves office. The nurse practitioner recommended a Lexiscan stress imaging study, but the patient/family refused. -- 06/05/15: Continued Sxs of intermittent chest discomfort, occasionally with associated palpitations/SOA.Device interrogation demonstrated thousands of ep isodes of AFIB since 09/2014. However, since 02/2015, her AF burden had been drama tically low. Her V-rates had been under good control. Thus, given that her AFIB did not clearly explain her Sxs, I concurred with Dr. Nieves office, and also recommended a stress imaging study, which she would o btain via Dr. Gruber's office. -- 12/31/15: Elevated LFTs -->Decreased Amiodarone -->LFTs Normalized. -- 11/18/16: OV (Dr. Trejo): Increased Amiodarone to 200 mg daily. For increased AFIB burden to 6.5% -- 05/18/17: OV (Dr. Trejo): Due to ataxia likely secondary to her Amiodarone, we decreased Amiodarone to 100 mg daily and checked a Digoxin level, TSH and Hernesto e T4. Digoxin level was 0.6, TSH was 5.02 but free T4 was 1.3. She was instruc keith to follow-up with her PMD regarding her thyroid function testing. We made n o change in her digoxin dosing. Vitals: 05/04/18 1150 BP: 96/62 Pulse: 75 Weight: 74.3 kg (163 lb 14.4 oz) Height: 1.676 m (5' 6") Body mass index is 26.45 kg/m. Past Medical History Patient Active Problem List Diagnosis Date Noted Chest pain 07/01/2014 05/21/14: Left heart cath: LV pressure 125/11, end-diastolic pressure of 11, aortic pressure 112/50, mean o f 75. Ascending thoracic aortic aneurysm measuring up to 4.6cm. 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 Small vessel disease dista lly in the LAD and right coronary artery. Normal left vent size and systolic function. EF 60%. 05/08/14: Echo 2D: Mild left vent hypertrophy noted diffusely. Slightly prominent left vent compare d to the previous study of 2011. Left atrial dilation. Mild to moderate aortic regurg. Mild mitral regurg and mil d tricuspid regurg. Estimated pulmonary artery pressure of 35mmHg. 05/05/14: Stress Test: Tolerated, Mild reversible ischemia at the basal to mid inferolateral wall. Normal left vent size with good EF 65% Hiatal hernia 03/13/2013 Bradycardia 10/18/2011 10-18-11 Medtronic dual chamber PPM implanted by Dr. Sheila Peralta Sotalol initiation 10-18-11 Hypertension Hyperlipidemia 09/14/2011 Lipid Profile: Cholesterol: 171, Triglyceride: 132, HDL: 39, LDL: 10 6 Paroxysmal atrial fibrillation (HCC) Hx of brief AF, CHADS score 2, ASA Hypothyroidism Dementia Anxiety Near syncope 09/16/2011 09/14/11 hospital admission to [facility] in [place], [place]. Reveal device [id number] implanted by Allyn Petit MD. Cardiac pacemaker in situ 08/18/2011 09/16/11 Reveal device [id number], Medtronic. Review of Systems Constitution: Positive for diaphoresis and weight loss. HENT: Positive for congestion. Eyes: Positive for photophobia. Cardiovascular: Positive for leg swelling. Respiratory: Positive for cough, sleep disturbances due to breathing and sputum production. Endocrine: Negative. Hematologic/Lymphatic: Bruises/bleeds easily. Skin: Positive for dry skin. Musculoskeletal: Positive for arthritis, back pain and joint swelling. Gastrointestinal: Positive for abdominal pain, anorexia, constipation, diarrhea and heartburn. Genitourinary: Negative. Neurological: Positive for headaches. Psychiatric/Behavioral: The patient has insomnia. Allergic/Immunologic: Positive for environmental allergies. Physical Exam Constitutional: She is in no acute distress, resting comfortably. Skin/Integument: Warm and dry. Eyes: PERRL, sclera are non-icteric and no xanthelasmas noted. ENT: Hearing is intact, Oropharynx is clear and moist. Heme/Lym/Immun: Supple neck, without thyromegaly. Respiratory-Pulmonary/Chest: Effort normal and breath sounds normal. No respira tory distress or accessory muscle use. No obvious tracheal deviation. Clear to auscultation bilaterally. Cardiovascular: No evidence of increased jugular venous pressure, carotids are 2+/4+ equal bilaterally, without obvious bruit. Regular rhythm, S1, S2. 1-2/6 s ystolic murmur noted at the RUSB and [place]. No heaves, thrills or rubs. Musc/Skeletal-Extremities: With 1+ pretibial and pedal pitting peripheral edema .With what appears to be full ROM. Device Site: Is in her left infraclavicular region and well-healed. Neuro: Patient is alert and oriented to person, place, and time. Psych: Patient does not appear anxious, she appears appropriate, with normal no n-pressured speech and what appears to be appropriate judgement Cardiovascular Studies ECG today documents an AV paced rhythm 75 bpm. Full device check performed with reprogramming which I have extensively reviewed . Changes, if done, as discussed below and is detailed in other dictation/note. 88% atrial paced; 99.7% ventricular paced over the last year she has had 1167 A T/AF events although that only amounts to an A. fib burden over the last year of 11.3%. The majority of these have been ATP treated. The longest lasted 5 days in duration. Heart rate histogram actually shows reasonable distribution. In AF roughly 2-1/2% of the time her rates are rapid. She has also had one episode of NSVT. The episode of NSVT occurred July 2017. In fact it was nonsustai mary VT with a cycle length in the 340-370 ms range. She is had no other events per EGMs of her atrial arrhythmias which included her most recent episode on documents clear A. fib with mostly ventricular pacing rare conduction. Problems Addressed Today No diagnosis found. Current Medications (including today's revisions) alprazolam (XANAX) 0.25 mg tablet Take 0.25 mg by mouth twice daily as neede d. amiodarone (CORDARONE) 200 mg tablet Take 0.5 tablets by mouth daily. Take w ith food. BUSPIRONE HCL (BUSPAR PO) Take 15 mg by mouth twice daily. Cholecalciferol (Vitamin D3) (VITAMIN D-3) 5,000 unit tab Take 5,000 Units b y mouth daily. cyanocobalamin (VITAMIN B-12, RUBRAMIN) 1,000 mcg/mL injection Inject 1 mL i nto the muscle every 14 days. dabigatran (PRADAXA) 150 mg capsule Take 150 mg by mouth twice daily. dexlansoprazole (+) (DEXILANT) 60 mg capsule Take 60 mg by mouth daily. digoxin (LANOXIN) 125 mcg tablet Take 1 Tab by mouth every 48 hours. donepezil (ARICEPT) 10 mg tablet Take 10 mg by mouth At Bedtime Daily. Erythromycin 500 mg TbEC Take 1 tablet by mouth at bedtime daily. furosemide (LASIX) 40 mg tablet Take 40 mg by mouth daily. HYDROcodone/acetaminophen (NORCO) 5/325 mg tablet Take 1 tablet by mouth spenser ry 6 hours as needed for Pain levothyroxine (SYNTHROID) 125 mcg tablet Take 125 mcg by mouth daily 30 marc donna before breakfast. liothyronine (CYTOMEL) 5 mcg tab Take 5 mcg by mouth twice daily. losartan (COZAAR) 100 mg tablet Take 100 mg by mouth Daily. meloxicam(+) (MOBIC) 15 mg tablet Take 15 mg by mouth daily. metoprolol XL (TOPROL XL) 50 mg extended release tablet Take 50 mg by mouth daily. [place]-3 Acid Ethyl Esters 1 gram cap Take 1 g by mouth as directed. Take 2g in the morning, 1g around noon and 1g at bedtime pantoprazole DR (PROTONIX) 40 mg tablet Take 40 mg by mouth twice daily. potassium chloride SR (K-DUR) 20 mEq tablet Take 40 mEq by mouth daily. sertraline (ZOLOFT) 50 mg tablet Take 50 mg by mouth daily. sucralfate (CARAFATE) 1 gram tablet Take 1 g by mouth at bedtime daily. Documentation recorded by Josh Acevedo, acting as scribe for Marty Trejo M.D. ANALYST documented in this encounter Plan of Treatment Order Schedule Name Type Priority Associated Diagnoses Ordered: 05/04/2018 ECG 12-LEAD ECG Routine Paroxysmal atrial fibrillation (HCC) Expected: 05/04/2019, Expires: 05/04/2019 DEVICE EVALUATION - PPM Device Check Routine Cardiac pacemaker in situ documented as of this encounter Procedures Comments Procedure Name Priority Date/Time Associated Diagnosis ECG-SCAN 05/21/2018 8:10 AM PC ANALYST documented in this encounter Results * ECG-SCAN (05/21/2018 8:10 AM PC ANALYST) Narrative Performed At Ordered by an unspecified provider. * CHEST 2 VIEWS (05/04/2018 1:22 PM PC ANALYST) Specimen Addenda Addendum by Can Marrero MD on 05/08/2018 1:00 PM Finalized by Cna Marrero M.D. on 05/07/2018 11:00 AM. Dictated [...] Interface, Radiant Results - 05/08/2018 1:00 PM PC ANALYST CHEST 2 VIEWS History: z79.899 amiodarone use. [...] no acute cardiopulmonary abnormalities. Performing Organization Address [facility] Phone Number [facility] RES[facility] * THYROID STIMULATING HORMONE-TSH (05/04/2018 1:11 PM PC ANALYST) TSH 2.5 0.3 - 5.0 uIU/mL [facility] Specimen Blood Performing Organization Address [facility] Phone Number [facility] [phone] [place] [address] * FREE T4 (FREE THYROXINE) ONLY (05/04/2018 1:11 PM PC ANALYST) T4-Free 1.0 0.7 - 1.8 ng/dL [facility] Specimen Performing Organization Address [facility] Phone Number [facility] [address] [facility], [address] [address] * BNP (B-TYPE NATRIURETIC PEPTI) (05/04/2018 1:11 PM PC ANALYST) B Type 42.5 0 - 100 PG/ML [facility] Natriuretic Peptide Specimen Blood Performing Organization Address [facility] Phone Number [facility] [address] [facility], [place] [address] * COMPREHENSIVE METABOLIC PANEL (05/04/2018 1:11 PM PC ANALYST) Sodium 140 135 - 148 mEq/L [facility] [...] Organization Address City/State/Zipcode Phone Number [facility] [address] [place] [address] documented in this encounter Visit Diagnoses Diagnosis Paroxysmal atrial fibrillation (HCC) - Primary Atrial fibrillation Cardiac pacemaker in situ Encounter for long-term (current) drug use Encounter for long-term (current) use of other medications Hypertension, unspecified type documented in this encounter
--- OUTSIDE RECORDS SUMMARY | 2018-12-05 14:23 | XMS REPORT | Encounter Summary ---
Author Author [facility] Organization [facility] Address Unknown Phone Unavailable Care Team Providers Care Stave Hewer Name Role Phone Dorian Muse MD Unavailable Ernesto Sosa MD 100 Melvin Monterroso MD Unavailable Unavailable Dana Birmingham RN Unavailable Unavailable Severiano Daniel DO Unavailable Yarely Vega MD PCP Encounter Details Care Team Description Date Type Department Ernesto Sosa MD [address] [facility] [place] [address] [phone] 03/20/2018 [facility] Cardiovascular Medicine Encounter Remote Device Check [phone] Social History Date Tobacco Use Types Packs/Day [...] 0 mg capsule by mouth twice daily. 07/08/2013 digoxin (LANOXIN) 125 mcg Take 1 Tab by 90 Tab 0 tablet mouth every 48 hours. donepezil (ARICEPT) 10 mg Take 10 mg by 0 tablet mouth At Bedtime Daily. furosemide (LASIX) 40 mg Take 40 mg by 0 tablet mouth daily. levothyroxine (SYNTHROID) Take 125 mcg 0 125 mcg tablet by mouth daily 30 minutes before breakfast. liothyronine (CYTOMEL) 5 Take 5 mcg by 0 mcg tab mouth twice daily. losartan (COZAAR) 100 mg Take 100 mg 0 tablet by mouth Daily. meloxicam(+) (MOBIC) 15 Take 15 mg by 0 mg tablet mouth daily. pantoprazole DR Take 40 mg by 0 [...] tablets by mouth daily. Take with food. 05/04/2018 amLODIPine (NORVASC) 5 mg Take 2.5 mg 0 tablet by mouth daily. 05/04/2018 Erythromycin 250 mg cpDR Take 1 Cap by 0 mouth three times daily before meals. 05/04/2018 metoprolol tartrate Take 25 mg by 0 (LOPRESSOR) 25 mg tablet mouth twice daily. 04/11/2012 05/04/2018 [place]-3 Acid Ethyl Esters Take 1 Cap by 360 Cap 2 (LOVAZA) 1 gram cap mouth four times daily. 05/04/2018 topiramate (TOPAMAX) 25 Take 25 mg by 0 mg tablet mouth twice daily. 05/04/2018 traMADol (ULTRAM) 50 mg Take 50 mg by 0 tablet mouth every 6 hours as needed. documented as of this encounter Plan of Treatment Not on filedocumented as of this encounter Procedures Comments Procedure Name Priority Date/Time Associated Diagnosis DEVICE EVALUATION - Routine 03/22/2018 Cardiac pacemaker in situ REMOTE PPM 4:10 PM CDT Paroxysmal atrial fibrillation (HCC) documented in this encounter Results * DEVICE EVALUATION - REMOTE PPM (03/22/2018 4:10 PM CDT) [facility] Signature Generator Model REVO MRI [id number] OTHER OUTSIDE # LAB Generator [id number] OTHER OUTSIDE Serial # LAB Generator 10/18/2011 OTHER OUTSIDE Implnat Date LAB FÉLIX/EOL RECREATIONAL PROGRAMS DIRECTOR=2.81V OTHER OUTSIDE Indicator LAB Generator Medtronic OTHER OUTSIDE [employer] LAB Generator No OTHER OUTSIDE Investigational LAB Wireless No OTHER OUTSIDE Generator LAB Device Type DDD-PM OTHER OUTSIDE LAB Atrial Lead CAPSUREFIX MRI SURESCAN OTHER OUTSIDE Model # 5086-52cm LAB Atrial Lead [id number] OTHER OUTSIDE Serial # LAB Atrial Lead 10/18/2011 OTHER OUTSIDE Implant Date LAB Atrial Lead 10 OTHER OUTSIDE Diaph. LAB Stimulation Atrial Lead Medtronic OTHER OUTSIDE [employer] LAB Atrial Lead No OTHER OUTSIDE Investigational LAB Atrial Lead active fixation OTHER OUTSIDE Fixation LAB Atrial Lead right atrial appendage OTHER OUTSIDE Location LAB Atrial Lead Pin IS1 OTHER OUTSIDE Connector LAB Atrial Lead Bipolar OTHER OUTSIDE Polarity LAB RV Lead Model # CAPSUREFIX MRI SURESCAN OTHER OUTSIDE 5086-58cm LAB RV Lead Serial [id number] OTHER OUTSIDE # LAB RV Lead Implant 10/18/2011 OTHER OUTSIDE Date LAB RV Lead Diaph. 10 OTHER OUTSIDE Stimulation LAB RV Lead Medtronic OTHER OUTSIDE [employer] LAB RV Lead No OTHER OUTSIDE Investigational [...] OTHER OUTSIDE Dependant LAB Date of Last 05/18/17 OTHER OUTSIDE Programming LAB Next 04/2018 OTHER OUTSIDE Programming LAB Check Due Date of Last 05/18/17 OTHER OUTSIDE Interrogation LAB HF Patient No OTHER OUTSIDE LAB Date of Last 03/20/18 OTHER OUTSIDE Remote Check LAB Remote Yes OTHER OUTSIDE Monitoring? LAB EP Device Dr. Trejo OTHER OUTSIDE Followed by LAB Name EP Device MAC OTHER OUTSIDE Followed By LAB Device [facility] OTHER OUTSIDE [place] [facility] Transmitter Compatible On AntiCoag 10/10/16 OTHER OUTSIDE Date LAB Known Diagnosed Yes OTHER OUTSIDE AFib LAB On Yes OTHER OUTSIDE Anticoagulation LAB Generator MRI Yes OTHER OUTSIDE Conditional LAB Atrial Lead MRI Yes OTHER OUTSIDE Conditional LAB LV Lead MRI Yes OTHER OUTSIDE Conditional LAB Remote Check? Yes OTHER OUTSIDE LAB Specimen Narrative Performed At OTHER OUTSIDE LAB Current monitoring period 03/20/18-06/18/18 [03/22/2018 4:12:50 PM - JYOTI KUMAR] Please see scanned data sheets for further review. Scheduled [facility]link transmission received forDual chamber PPM. Device function appears appropriate. Presenting EGM shows AFib/flutter with MARKETING PR INTERN 83bpm. Battery:2.92v (FÉLIX is 2.81) Events noted since 05/18/17: Atrial:1,061 treated AT/AF (50% successful); 277 monitored.Total AT/AF burden 11.9%. Longest 5 days.[place] graph shows definite increase since last OV check in April. EGMs confirm AFib flutter.Last several episodes 03/19 and 03/20. V rates controlled,>100bpm ~5% Ventricular:1 VT labeled event already reported on 07/29/17 Next follow up appt 05/04/[address] Trejo. Next remote scheduled for 3 mo. Results routed to Dr. Joseph for signature and review. Dr. Trejo is out. _ Performing Organization Address City/State/Zipcode Phone Number OTHER OUTSIDE LAB documented in this encounter Visit Diagnoses Diagnosis Cardiac pacemaker in situ Paroxysmal atrial fibrillation (HCC) Atrial fibrillation documented in this encounter
--- OUTSIDE RECORDS SUMMARY | 2018-12-05 14:23 | XMS REPORT | Encounter Summary ---
Author Author [facility] Organization [facility] Address Unknown Phone Unavailable Care Team Providers Care Concrete Panel Installer Name Role Phone Dorian Muse MD Unavailable Ernesto Sosa MD [address] Monterroso MD Unavailable Unavailable Dana Birmingham RN Unavailable Unavailable Severiano Daniel DO Unavailable Yarely Vega MD PCP Encounter Details Care Team Description Date Type Department Ernesto Sosa MD [address] [facility] [place] [address] [phone] 11/17/2017 [facility] Cardiovascular Medicine Encounter Remote Device Check [phone] Social History Date Tobacco Use Types Packs/Day [...] mg tablet mouth twice daily. 04/11/2012 05/04/2018 [place]-3 Acid Ethyl Esters Take 1 Cap by [...] Date/Time Associated Diagnosis DEVICE EVALUATION - Routine 11/28/2017 Cardiac pacemaker in situ REMOTE PPM 2:20 PM CDT Paroxysmal atrial fibrillation (HCC) documented in this encounter Results * DEVICE EVALUATION - REMOTE PPM (11/28/2017 2:20 PM CDT) [facility] Signature Generator Model REVO MRI [id number] OTHER OUTSIDE # LAB Generator [id number] OTHER OUTSIDE Serial # LAB Generator 10/18/2011 OTHER OUTSIDE Implnat Date LAB FÉLIX/EOL EXCEL EXPERT=2.81V OTHER OUTSIDE Indicator LAB Generator Medtronic OTHER OUTSIDE Meteorologist In Charge LAB Generator No OTHER OUTSIDE Investigational LAB Wireless No OTHER OUTSIDE Generator LAB Device Type DDD-PM OTHER OUTSIDE LAB Atrial Lead CAPSUREFIX MRI SURESCAN OTHER OUTSIDE Model # 5086-52cm LAB Atrial Lead [id number] OTHER OUTSIDE Serial # LAB Atrial Lead 10/18/2011 OTHER OUTSIDE Implant Date LAB Atrial Lead 10 OTHER OUTSIDE Diaph. LAB Stimulation Atrial Lead Medtronic OTHER OUTSIDE Meteorologist In Charge LAB Atrial Lead No OTHER OUTSIDE Investigational LAB Atrial Lead active fixation OTHER OUTSIDE Fixation LAB Atrial Lead right atrial appendage OTHER OUTSIDE Location LAB Atrial Lead Pin IS1 OTHER OUTSIDE Connector LAB Atrial Lead Bipolar OTHER OUTSIDE Polarity LAB RV Lead Model # CAPSUREFIX MRI SURESCAN OTHER OUTSIDE 5086-58cm LAB RV Lead Serial [id number] OTHER OUTSIDE # LAB RV Lead Implant 10/18/2011 OTHER OUTSIDE Date LAB RV Lead Diaph. 10 OTHER OUTSIDE Stimulation LAB RV Lead Medtronic OTHER OUTSIDE Meteorologist In Charge LAB RV Lead No OTHER OUTSIDE Investigational [...] No OTHER OUTSIDE LAB Date of Last 11/16/17 OTHER OUTSIDE Remote Check LAB Remote Yes OTHER OUTSIDE Monitoring? LAB EP Device Dr. Trejo OTHER OUTSIDE Followed by LAB Name EP Device MAC OTHER OUTSIDE Followed By LAB Device [facility] OTHER OUTSIDE [place] LAB Transmitter Compatible On AntiCoag 10/10/16 OTHER [...] Device function appears appropriate. Presenting EGM shows Ap-Rocket Assembly Operator 95bpm. Battery longevity 2.93v (FÉLIX is [...]
--- OUTSIDE RECORDS SUMMARY | 2018-12-05 14:23 | XMS REPORT | Encounter Summary ---
Author Author [facility] Organization [facility] Address Unknown Phone Unavailable Care Team Providers Care Vinyl Dipper Name Role Phone Dorian Muse MD Unavailable Ernesto Sosa MD [address]ter[address] MD Unavailable Unavailable Dana Birmingham RN Unavailable Unavailable Severiano Daniel DO Unavailable Yarely Vega MD PCP Reason for Visit * Reason Comments Amiodarone Monitoring CXR due 05/06, labs due 06/05 Encounter Details Care Team Description Date Type Department Leann Nguyen RN Amiodarone Monitoring ( CXR due 05/06, labs due 06/05 ) 11/27/2017 Telephone The [place] [address] [place] [address] Social History Date Tobacco Use Types Packs/Day [...] Nguyen RN - 11/27/2017 4:13 PM CDT Amiodarone Monitoring status as of 11/27/17: Amiodarone monitoring complete. Next amiodarone review is due in 180 days. Most recent lab results Lab Results Component Value Date/Time AST 17 11/23/2017 ALT 16 11/23/2017 TSH 1.0 11/23/2017 TSH3G 5.02 (H) 05/18/2017 03:14 PM [id number] 1.04 11/23/2017 Procedures Last chest X-Ray: 04/27/17 documented in this encounter Plan of Treatment Not on filedocumented as of this encounter Visit Diagnoses Not on filedocumented in this encounter
--- OUTSIDE RECORDS SUMMARY | 2018-12-05 14:23 | XMS REPORT | Encounter Summary ---
Author Author [facility] Organization [facility] Address Unknown Phone Unavailable Care Team Providers Care Insole Coverer Name Role Phone Dorian Muse MD Unavailable Ernesto Sosa MD [address]terro[address] MD Unavailable Unavailable Dana Birmingham RN Unavailable Unavailable Severiano Daniel DO Unavailable Yarely Vega MD PCP Encounter Details Care Team Description Date Type Department Blanca Vincent RN 01/19/2018 Telephone The [facility] [address] [place] [address] Social History Date Tobacco Use Types Packs/Day [...] Shalini Blake Sent: 01/19/2018 11:36 AM To: Mac Nurse Kennedy Subject: MPE-Amio concerns Dipika patient daughter calling about Amio concerns. [phone] is the call back. She will be free after 2:30 today. documented in this encounter Plan of Treatment Not on filedocumented as of this encounter Visit Diagnoses Not on filedocumented in this encounter
--- OUTSIDE RECORDS SUMMARY | 2018-12-05 14:23 | XMS REPORT | Encounter Summary ---
Author Author [facility] Organization [facility] Address Unknown Phone Unavailable Care Team Providers Care Pelletizer Name Role Phone Dorian Muse MD Unavailable Ernesto Sosa MD [address]ter[address] MD Unavailable Unavailable Dana Birmingham RN Unavailable Unavailable Severiano Daniel DO Unavailable Yarely Vega MD PCP Reason for Visit * Reason Comments Follow-up Phone Call Encounter Details Care Team Description Date Type Department Blanca Vincent RN Follow-up Phone Call 11/27/2017 Telephone The [facility] [address] [place] [address] Social History Date Tobacco Use Types Packs/Day [...] me that patient had CXR at [facility] in [place], [place] about 5 weeks ago. Will request from them. Dipika is requesting CB once these are received. * Telephone Encounter - Blanca Vincent RN - 11/27/2017 3:55 PM CDT ----- Message from Annie Marie LPN sent at 11/27/2017 3:34 PM CDT ----- Regarding: MPE- testing question VM from daughter Dipika # [phone], on triage line. She has questions about Amiodarone testing. documented in this encounter Plan of Treatment Not on filedocumented as of this encounter Visit Diagnoses Not on filedocumented in this encounter
--- OUTSIDE RECORDS SUMMARY | 2018-12-05 14:23 | XMS REPORT | Encounter Summary ---
Author Author [facility] Organization [facility] Address Unknown Phone Unavailable Care Team Providers Care Route Delivery Manager Name Role Phone Dorian Muse MD Unavailable Ernesto Sosa MD [address] Monterroso MD Unavailable Unavailable Dana Birmingham RN Unavailable Unavailable Severiano Daniel DO Unavailable Yarely Vega MD PCP Encounter Details Care Team Description Date Type Department Leann Nguyen, STEVEN intermediate frame tender current use of amiodarone 11/27/2017 Orders Only The [facility] [address] [place] [address] Social History Date Tobacco Use [...] of this encounter Progress Notes * Leann Nguyen, STEVEN - 11/27/2017 4:01 PM CDT Amiodarone maintenance labs Labs per Yarely Vega MD documented in this encounter Plan of Treatment Not on filedocumented as of this encounter Procedures Comments Procedure Name Priority Date/Time Associated Diagnosis THYROID STIMULATING Routine 11/23/2017 skilled nursing current use of HORMONE-TSH amiodarone FREE T4 (FREE THYROXINE) Routine 11/23/2017 skilled nursing current use of ONLY amiodarone HEMOGLOBIN A1C Routine 11/23/2017 DIGOXIN LEVEL Routine 11/23/2017 intermediate frame tender current use of amiodarone LIPID PROFILE Routine 11/23/2017 COMPREHENSIVE METABOLIC Routine 11/23/2017 intermediate frame tender current use of PANEL amiodarone documented in this encounter Results * LIPID PROFILE (11/23/2017) Cholesterol 179 OTHER OUTSIDE LAB Triglycerides 134 OTHER OUTSIDE LAB HDL 51 OTHER OUTSIDE LAB LDL 101 OTHER OUTSIDE LAB VLDL OTHER OUTSIDE LAB Non HDL OTHER OUTSIDE Cholesterol LAB Cholesterol/HDL 3.5 OTHER OUTSIDE Ratio LAB Specimen Blood - Blood Narrative Performed [...] CO2 18 OTHER OUTSIDE LAB Blood Urea 24 OTHER OUTSIDE Nitrogen LAB Creatinine 1.0 OTHER OUTSIDE LAB Glucose 123 OTHER OUTSIDE LAB Calcium 9.4 OTHER OUTSIDE LAB Total Protein 6.2 OTHER OUTSIDE LAB Total Bilirubin 0.7 OTHER OUTSIDE LAB Albumin 3.8 OTHER OUTSIDE LAB Alk Phosphatase 56 OTHER OUTSIDE LAB AST (SGOT) 17 OTHER OUTSIDE LAB ALT (SGPT) 16 OTHER OUTSIDE LAB eGFR Non >59 OTHER OUTSIDE LAB South African eGFR OTHER OUTSIDE South African LAB Anion Gap OTHER OUTSIDE LAB Specimen [...] documented in this encounter Visit Diagnoses Diagnosis skilled nursing current use of amiodarone documented in this encounter
--- OUTSIDE RECORDS SUMMARY | 2018-12-05 14:23 | XMS REPORT | Encounter Summary ---
Author Author [facility] Organization [facility] Address Unknown Phone Unavailable Care Team Providers Care Bleach Chlorinator Name Role Phone Dorian Muse MD Unavailable Ernesto Sosa MD [address]ter[address] MD Unavailable Unavailable Dana Birmingham RN Unavailable Unavailable Severiano Daniel DO Unavailable Yarely Vega MD PCP Encounter Details Care Team Description Date Type Department Mena Dozier RN 09/19/2017 Telephone The [facility] [address] [facility] [place] [address] Social History Date Tobacco Use Types Packs/Day [...] Dozier RN - 09/19/2017 8:39 AM CDT Annie Marie LPN P Mac Nurse Kennedy STUBBS from daughter Dipika # [phone] returning our call. She did not have [...] not know what to do. Call # [phone]. documented in this encounter Plan of Treatment Not on filedocumented as of this encounter Visit Diagnoses Not on filedocumented in this encounter
--- OUTSIDE RECORDS SUMMARY | 2018-12-05 14:23 | XMS REPORT | Encounter Summary ---
Author Author [facility] Organization [facility] Address Unknown Phone Unavailable Care Team Providers Care Supervisor [place] Name Role Phone Dorian Muse MD Unavailable Ernesto Sosa MD [address]terroso MD Unavailable Unavailable Dana Birmingham RN Unavailable Unavailable Severiano Daniel DO Unavailable Yarely Vega MD PCP Reason for Visit * Reason Comments Remote Monitoring [facility] Monitoring Questions Encounter Details Care Team Description Date Type Department Jason Burgess RN Remote Monitoring Questions ([facility] Monitoring) 03/14/2018 Telephone The [facility] [address] [place] [address] Social History Date Tobacco Use Types [...] Telephone Encounter - Jason Burgess RN - 03/14/2018 4:54 PM CDT Pt was still using 2490 monitor and no longer has home line. Spoke with daughter (Dipika) and mailed her a new [address]179 monitor to her home. She will send a transmi ssion once she gets the monitor and call if she has any questions whatsoever. * Telephone Encounter - Jason Burgess RN - 03/14/2018 4:48 PM CDT ----- Message from Jason Burgess RN sent at 03/14/2018 6:43 AM CDT ----- Regarding: FW: Letter ----- Message ----- From: Annie Marie LPN Sent: 03/13/2018 4:30 PM To: Mac Ep Remote Subject: Letter VM from daughter Dipika # [phone]. Said that she got letter that she missed transmission. Dipika said that she sent it on 02-16-18 at 10am. Call Dpiika back. documented in this encounter Plan of Treatment Not on filedocumented as of this encounter Visit Diagnoses Not on filedocumented in this encounter
--- OUTSIDE RECORDS SUMMARY | 2018-12-05 14:23 | XMS REPORT | Encounter Summary ---
Author Author [facility] Organization [facility] Address Unknown Phone Unavailable Care Team Providers Care Senior Gl Accountant Name Role Phone Dorian Muse MD Unavailable Ernesto Sosa MD [address]terroso MD Unavailable Unavailable Dana Birmingham RN Unavailable Unavailable Severiano Daniel DO Unavailable Yarely Vega MD PCP Reason for Visit * Reason Comments Amiodarone Monitoring next due 04/29/18 Encounter Details Care Team Description Date Type Department Sasha Chen RN Amiodarone Monitoring (next due 04/29/18) 11/30/2017 Documentation The [address] [place] [address] Social History Date Tobacco Use Types Packs/Day [...] Progress Notes * Sasha Chen RN - 11/30/2017 8:49 AM CDT Amiodarone Monitoring status as of 11/30/17: Amiodarone monitoring complete. Next amiodarone review is due in 180 days. Most recent lab results Lab Results Component Value Date/Time AST 17 11/23/2017 ALT 16 11/23/2017 TSH 1.0 11/23/2017 TSH3G 5.02 (H) 05/18/2017 03:14 PM JOCGR6G 1.04 11/23/2017 Procedures Last chest X-Ray: 10/27/17 documented in this encounter Plan of Treatment Not on filedocumented as of this encounter Visit Diagnoses Not on filedocumented in this encounter
--- OUTSIDE RECORDS SUMMARY | 2018-12-05 14:23 | XMS REPORT | Encounter Summary ---
Author Author [facility] Organization [facility] Address Unknown Phone Unavailable Care Team Providers Care Physically Impaired Teacher Name Role Phone Dorian Muse MD Unavailable Ernesto Sosa MD [address] Monterroso MD Unavailable Unavailable Dana Birmingham RN Unavailable Unavailable Severiano Daniel DO Unavailable Yarely Vega MD PCP Reason for Visit * Reason Comments Medication Question amio issues, to do labs and chest x ray Encounter Details Care Team Description Date Type Department Lia Hernandez RN Medication Question (amio issues, to do labs and chest x ray) 08/31/2017 Telephone The [address] [address] Social History Date Tobacco Use Types Packs/Day Years Used Never Smoker Smokeless Tobacco: Never Used Drinks/Week oz/Week Comments Alcohol Use No Sex Assigned at Date Recorded Not on file Industry Job Start Date Occupation Not on file Not on file Not on file Travel End Travel History Travel Start No recent travel history available. documented as of this encounter Miscellaneous Notes * Addendum Note - Lia Hernandez RN - 09/01/2017 8:30 AM CDT Addended by: LIA HERNANDEZ on: 09/01/2017 08:30 AM Modules accepted: Orders * Telephone Encounter - Lia Hernandez RN - 09/01/2017 8:24 AM CDT Orders entered as discussed with MPE. Returned call to Debora to discuss, inform ed her of MPE recommendation to do labs now and chest x ray to start, to determi ne plan based on results. Debora states pt will go to [facility] in [facility] or labs and [facility] for the chest X ray. If she does not hear back from us with results within a week of completing testing, she will return call t o our office to follow up. Pt'sdtr Debora states understanding and is agreeable to plan. No further questions or concerns at this time. * Telephone Encounter - Lia Hernandez RN - 08/31/2017 5:29 PM CDT Received note from PCP that addresses fatigue/malaise, pruritus, decreased appet ite, "pneumonia-like symptoms," muscle aches, joint aches, weight loss, and body ache as amio side effects. Discussed with MPE who recommends pt do amio monitoring labs and x ray as well a s T4 and dig level. * Telephone Encounter - Lia Hernandez RN - 08/31/2017 2:37 PM CDT Returned call to Debora to discuss. She explained that pt has been itching all o ivonne and over 8 other symptoms that she could not recall but pt told her PCP abou t it. PCP told her it was probably amio and to call us. Debora confirmed it was Dr. Vega who saw pt. Will request records, review with MPE and f/u with pt/d tr. Pt states understanding and is agreeable to plan. No further questions or co ncerns at this time. Placed call to Dr. Vega's office, they will fax notes from yesterday OV and June. * Telephone Encounter - Lia Hernandez RN - 08/31/2017 2:36 PM CDT ----- Message from Annie Marie LPN sent at 08/31/2017 1:42 PM CDT ----- Regarding: MPE- med allergy VM from daughter Debora # [phone] on triage line. Said the she just saw her PCP for rash and itches all over and had 8 more sympto ms but Debora could not remember them. PCP thinks she is allergic to Amiodarone and that we could order something else for her. documented in this encounter Plan of Treatment Order Schedule Name Type Priority Associated Diagnoses Expected: 09/01/2017 (Approximate), Expires: 09/01/2018 CHEST 2 VIEWS Imaging Routine [facility] current use of amiodarone documented as of this encounter Results * FREE T4 (FREE THYROXINE) ONLY (11/23/2017) [...] LAB eGFR Non >59 OTHER OUTSIDE LAB Martiniquais eGFR OTHER OUTSIDE [place] LAB Anion Gap OTHER OUTSIDE LAB Specimen Blood - Blood Narrative Performed At Performing Organization Address City/State/Zipcode Phone Number OTHER OUTSIDE LAB documented in this encounter Visit 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
--- OUTSIDE RECORDS SUMMARY | 2018-12-05 14:23 | XMS REPORT | Encounter Summary ---
Author Author [facility] Organization [facility] Address Unknown Phone Unavailable Care Team Providers Care Tea Taster Name Role Phone Dorian Muse MD Unavailable Ernesto Sosa MD [address] Monterroso MD Unavailable Unavailable Dana Birmingham RN Unavailable Unavailable Severiano Daniel DO Unavailable Yarely Vega MD PCP Reason for Visit * Reason Comments Records Request Via [phone] Encounter Details Care Team Description Date Type Department Shalini Blake Records Request (Via [id number]-[phone]) 11/28/2017 Documentation The [address] [id number] Social History Date Tobacco Use Types Packs/Day [...] Please send: Chest X-ray Please Fax to: [phone] Attention: Shalini Blake MA [facility] [address] [place] [address] documented in this encounter Plan of Treatment Not on filedocumented as of this encounter Visit Diagnoses Not on filedocumented in this encounter
--- OUTSIDE RECORDS SUMMARY | 2018-12-05 14:24 | XMS REPORT | Encounter Summary ---
Author Author [facility] Organization [facility] Address Unknown Phone Unavailable Care Team Providers Care Wind Up Operator Name Role Phone Dorian Muse MD Unavailable Ernesto Sosa MD [address] Monterroso MD Unavailable Unavailable Dana Birmingham RN Unavailable Unavailable Severiano Daniel DO Unavailable Yarely Vega MD PCP Encounter Details Care Team Description Date Type Department Ernesto Sosa MD [address] [facility] [place] [address] [phone] 08/18/2017 [facility] Cardiovascular Medicine Encounter Remote Device Check [phone] Social History Date Tobacco Use Types Packs/Day [...] mg tablet mouth twice daily. 04/11/2012 05/04/2018 [place]-3 Acid Ethyl Esters Take 1 Cap by [...] Date/Time Associated Diagnosis DEVICE EVALUATION - Routine 08/31/2017 Cardiac pacemaker in situ REMOTE PPM 9:34 AM CDT documented in this encounter Results * DEVICE EVALUATION - REMOTE PPM (08/31/2017 9:34 AM CDT) Generator Model REVO MRI [id number] OTHER OUTSIDE # LAB Generator [id number] OTHER OUTSIDE Serial # LAB Generator 10/18/2011 OTHER OUTSIDE Implnat Date LAB FÉLIX/EOL ENTRY LEVEL ACCOUNT EXECUTIVE=2.81V OTHER OUTSIDE Indicator LAB Generator Medtronic OTHER OUTSIDE [place] LAB Generator No OTHER OUTSIDE Investigational LAB Wireless No OTHER OUTSIDE Generator LAB Device Type DDD-PM OTHER OUTSIDE LAB Atrial Lead CAPSUREFIX MRI SURESCAN OTHER OUTSIDE Model # 5086-52cm LAB Atrial Lead [id number] OTHER OUTSIDE Serial # LAB Atrial Lead 10/18/2011 OTHER OUTSIDE Implant Date LAB Atrial Lead 10 OTHER OUTSIDE Diaph. LAB Stimulation Atrial Lead Medtronic OTHER OUTSIDE [place] LAB Atrial Lead No OTHER OUTSIDE Investigational LAB Atrial Lead active fixation OTHER OUTSIDE Fixation LAB Atrial Lead right atrial appendage OTHER OUTSIDE Location LAB Atrial Lead Pin IS1 OTHER OUTSIDE Connector LAB Atrial Lead Bipolar OTHER OUTSIDE Polarity LAB RV Lead Model # CAPSUREFIX MRI SURESCAN OTHER OUTSIDE 5086-58cm LAB RV Lead Serial [id number] OTHER OUTSIDE # LAB RV Lead Implant 10/18/2011 OTHER OUTSIDE Date LAB RV Lead Diaph. 10 OTHER OUTSIDE Stimulation LAB RV Lead Medtronic OTHER OUTSIDE [place] LAB RV Lead No OTHER OUTSIDE Investigational [...] No OTHER OUTSIDE LAB Date of Last 02/22/17 OTHER OUTSIDE Remote Check LAB Next Remote 08/18/17 OTHER OUTSIDE Check Due LAB Remote Yes OTHER OUTSIDE Monitoring? LAB EP Device Dr. Trejo OTHER OUTSIDE Followed by LAB Name EP Device MAC OTHER OUTSIDE Followed By LAB Device [facility] OTHER OUTSIDE [place] LAB Transmitter Compatible On AntiCoag 10/10/16 OTHER OUTSIDE Date LAB Known Diagnosed Yes OTHER OUTSIDE AFib LAB On Yes OTHER OUTSIDE Anticoagulation LAB Generator MRI Yes OTHER OUTSIDE Conditional LAB Atrial Lead MRI Yes OTHER OUTSIDE Conditional LAB LV Lead MRI Yes OTHER OUTSIDE Conditional LAB Specimen Narrative Performed At OTHER OUTSIDE LAB Current Monitoring Period: 08/18/17 through 11/17/17 [08/31/2017 9:37:14 AM - RITA GUERRA] Scheduled [facility] transmission received.Device function appears normal. Events noted since 05/18/17: Atrial:40 monitored and 225 treated AT/AF events for 11.3% of time. Available EGMs show AF with V-rates < 100 bpm about 90% of time.Pt is on Pradaxa. Ventricular:1 NSVT event on 07/29/17 lasting 19 beats, A/V rates: 51/172 bpm. Please see scanned data sheets for further review as needed.Pt is scheduled to follow up sometime in April 2018 with MPE at the OP office. Performing Organization Address City/State/Zipcode Phone Number OTHER OUTSIDE LAB documented in this encounter Visit Diagnoses Diagnosis Cardiac pacemaker in situ documented in this encounter
--- OUTSIDE RECORDS SUMMARY | 2018-12-05 14:24 | XMS REPORT | Encounter Summary ---
Author Author [facility] Organization [facility] Address Unknown Phone Unavailable Care Team Providers Care Narcotics And/Or Vice Detective Name Role Phone Dorian Muse MD Unavailable Ernesto Sosa MD [address] Monterroso MD Unavailable Unavailable Dana Birmingham RN Unavailable Unavailable Severiano Daniel DO Unavailable Yarely Vega MD PCP Reason for Visit * Reason Comments Atrial fibrillation 6 month follow up Encounter Details Care Team Description Date Type Department Marty Trejo MD [address] [facility] [place], [place] [id number] Atrial fibrillation (6 month follow up) 05/18/2017 Office Visit The [facility] [address] [place] [address] Social History Date Tobacco Use Types Packs/Day [...] Signs Reading Time Taken Comments Vital Sign 110/78 05/18/2017 1:22 PM WILTON WEAVER Blood Pressure 77 05/18/2017 1:22 PM WILTON WEAVER Pulse - - Temperature - - Respiratory Rate - - Oxygen Saturation - - Inhaled Oxygen Concentration 82 kg (180 lb 11.2 oz) 05/18/2017 1:22 PM WILTON WEAVER Weight 167.6 cm (5' 6") 05/18/2017 1:22 PM WILTON WEAVER Height 29.17 05/18/2017 1:22 PM WILTON WEAVER Body Mass Index documented in this encounter Patient Instructions * Patient Instructions* Sasha Chen RN - 05/18/2017 1:30 PM WILTON WEAVER Decrease your amioderone 100 mg per day have your labs drawn today: TSH, free T4, digoxin level call for lab results tomorrow if you do not receive them by phone take by mouth vitamin B12 Follow up with Dr Trejo once year with device check ON WEAVER documented in this encounter Progress Notes * Marty Trejo MD - 05/18/2017 1:30 PM WILTON WEAVER Date of Service: 05/18/2017 Faiza Nation is a 82 y.o. female. HPI I had the pleasure of seeing your patient Faiza Nation in the [facility] as a part of the [facility] [place] office today fo r follow up regarding her Atrial Fibrillation and Permanent Pacemaker. Her Primary Cost Controller is my friend and colleague, Dr. Gruber in [place], [place]. Ms. Nation is an exceptionally pleasant [...] DDDR, she had a markedly prolonged First D egree AV Block up to 410 ms during A-only pacing. She has a [id number] score of 4: Age (x2), Female, HTN. Prior GI Bleed while on Warfarin. Regarding her AFIB, Device Hx, etc: Please see Problem List and Prior OV notes including 12/31/15 and Initial Consultation note for greater detail. However, luciana efly: -- 2010: Sxs of palpitations --> Medtronic Reveal Implantable Looping Monitor Implanted by Dr. Gruber --> ILR Documented Intermittent AFIB and Bradycardia/Pauses. -- 2011: Medtronic PPM Implanted by Dr. Sosa-- originally programmed DDDR, but later changed to AAIR for markedly prolonged First Degree AV Block up to 410 ms during A-only pacing. Initiated Sotalol. -- 06/2013: EP Consultation: Recurrent AFIB --> Reinitiated Metoprolol. -- 09/2013: Elevated Digoxin level --> Changed to mgvtn-moumu-pzx dosing. -- 10/2014: Recurrent AFIB --> DC'ed Sotalol, Initiated Amiodarone --> Improved AFIB [place]. -- 12/31/15: Elevated LFTs --> Decreased Amiodarone --> LFTs Normalized. Regarding her Prior Sxs of CP: Please see Problem List and Prior OV notes inclu ding 12/31/15 and Initial Consultation note for greater detail. However, briefly: -- 2012: Stress Imaging for Sxs of CP (OS[facility]): Reportedly with Normal LV Functio n and No Evidence of Significant Ischemia. -- 2012: Echo: LVEF 70%. LA Dimension 4.3 cm. Myxomatous MV Degeneration. Sept al and Posterior Wall Thickness 1 cm. -- 12/2012: Cardiac Cath: 30% Mid-LAD, 40%-50% RCA diffusely. -- 05/2015: Sxs of chest discomfort --> Presented to ED in [place], [place]. Her evaluation was apparently unremarkable. She followed up with Dr. Nieves office. The nurse practitioner recommended a Lexiscan stress imaging study, but the patient/family refused. 06/05/15: Continued Sxs of intermittent chest discomfort, occasionally with ass ociated palpitations/SOA.Device interrogation demonstrated thousands of episod es of AFIB since 09/2014. However, since 02/2015, her AF burden had been dramatica lly low. Her V-rates had been under good control. Thus, given that her AFIB did not clearly explain her Sxs, I concurred with Dr. Nieves office, and also recommended a stress imaging study, which she would o btain via Dr. Gruber's office. -- 11/18/16: OV (Dr. Trejo): Increased Amiodarone to 200 mg daily. For increased AFIB burden to 6.5% She STATES she has been experiencing episodes of lightheadedness while getting o ut of bed. She also notes that when she lays down, she has vertiginous symptoms. She complains of weakness in her legs and "all over." She also states she walks like she is "drunk or something". She describes weakness in her arms when she wakes up in the morning, which impro ves later in the day. She is currently not exercising, which she blames on her weakness and fatigue. She also has had some nausea. She denies any chest discomfort, shortness of breath, palpitations, dizziness, n ear syncope or syncope, PND or orthopnea. FHx, [...] constitutional complaints today. She has had some issu es with postural lightheadedness when she goes from lying down to sitting up but then wakes a minute and resolves. I do not feel that warrants any change in [facility] at this time. But she also on further dialogue is been having issues with balance stating she walks like a "drunk." This certainly could be related to a taxia induced by amiodarone. We will decrease her amiodarone down to 100 mg daily or half tablet. She tolera keith this dosage before. If that does not improve his symptoms and I recommended that she discuss this further with her primary care physician or neurologist to see if head CT is warranted. From a AFIB standpoint her burden is been cut in half since we increased the ami odarone. As noted we will decrease the amiodarone back down to 100 mg daily. However spenser n if her burden goes back up to the 6% range It is unlikely that will be driving the majority of her symptoms. She is not a candidate for an ablation procedure. And frankly I think is tolerating her atri al arrhythmias well. Although I do not suspect her generalized weakness is from a cardiac problem. H er nausea and some of her other constitutional symptoms certainly could still be related to the amiodarone. It also could be related to digoxin levels that are too high since she has been on a higher dose of amiodarone. Again we will decrease the dose of Amiodarone but will also check a digoxin leve l. Also check a CMP. She had some LFTs back in early April that were normal . Is also worth noting that back in April her TSH was elevated at 6.17. She is on thyroid replacement hormone. That certainly could cause some of her constit utional symptoms potentially. Therefore we will recheck her TSH as well as chec k a free T4. It is possible she just has euthyroid sick syndrome. Pending thos e results we may notify her family physician to follow this further adjust her m edication accordingly. Next She also states she feels tremendously better with more energy after she gets he r B12 shot but that is infrequent. I have encouraged her to try an njip-ock-qhb nter B12 vitamin and instructed her that may [...] follow-up with me in 12 month(s ). Vitals: 05/18/17 1322 BP: 110/78 Pulse: 77 [...] Near syncope 09/16/2011 09/14/11 hospital admission to [facility] in [place], [place]. Reveal device [id number] implanted by Allyn Petit MD. Cardiac pacemaker in situ 08/18/2011 09/16/11 Reveal device 9529, Medtronic. Review of Systems Constitution: Positive for chills, diaphoresis, weakness and malaise/fatigue. HENT: Positive for ear pain and odynophagia. Eyes: Positive for blurred vision. Cardiovascular: Positive for chest pain, claudication, dyspnea on exertion, irre gular heartbeat, orthopnea and palpitations. Respiratory: Positive for shortness of breath. Endocrine: Negative. Hematologic/Lymphatic: Negative. Skin: Positive for dry skin and itching. Musculoskeletal: Positive for arthritis, back pain, joint pain, muscle cramps, m yalgias, neck pain and stiffness. Gastrointestinal: Positive for [...] S1, S2. 1/6 systolic murmur noted at t RUSB. No heaves, thrills or rubs. Musc/Skeletal-Extremities: [...] bradycardia 51 bpm with a markedly prolonged NM interval of 360+ ms in the past is even been 420 ms. She also has pacemaker Wenckebach at 60 bpm. Therefore she is pacing in the ventricle 100% of the time. She has had 280 mode switch events the longest was 10 hours in duration most rec ent was in fact today at 1 in the morning lasting nearly 3 minutes. Review of t electrograms documents clear atrial fibrillation. 235/280 episodes are ATP terminated. Problems Addressed Today Encounter Diagnoses Name Primary? Paroxysmal atrial fibrillation (HCC) Yes Cardiac pacemaker in situ Current Medications (including today's revisions) alprazolam (XANAX) 0.25 mg tablet Take 0.25 mg by mouth twice daily as neede d. amiodarone (CORDARONE) 200 mg tablet Take 0.5 tablets by mouth daily. Take w ith food. amLODIPine (NORVASC) 5 mg tablet Take [...] tablet Take 25 mg by mouth twice daily . [place]-3 Acid Ethyl Esters (LOVAZA) 1 gram cap [...] hours as needed. Documentation recorded by Josh Baki, acting as scribe for Marty Trejo M.D. ON WEAVER documented in this encounter Plan of Treatment Order Schedule Name Type Priority Associated Diagnoses Ordered: 05/18/2017 ECG 12-LEAD ECG Routine Paroxysmal atrial fibrillation (HCC) Cardiac pacemaker in situ documented as of this encounter Results * DEVICE EVALUATION - PPM (05/04/2018 11:32 AM WILTON WEAVER) [facility] Generator Model REVO MRI [id number] OTHER OUTSIDE # LAB Generator [id number] OTHER OUTSIDE Serial # LAB Generator 10/18/2011 OTHER OUTSIDE Implnat Date LAB FÉLIX/EOL DIRECTOR GENERAL=2.81V OTHER OUTSIDE Indicator LAB Generator Medtronic OTHER OUTSIDE Port Patrol Officer LAB Generator No OTHER OUTSIDE Investigational LAB Wireless No OTHER OUTSIDE Generator LAB Device Type DDD-PM OTHER OUTSIDE LAB Atrial Lead CAPSUREFIX MRI SURESCAN OTHER OUTSIDE Model # 5086-52cm LAB Atrial Lead [id number] OTHER OUTSIDE Serial # LAB Atrial Lead 10/18/2011 OTHER OUTSIDE Implant Date LAB Atrial Lead 10 OTHER OUTSIDE Diaph. LAB Stimulation Atrial Lead Medtronic OTHER OUTSIDE Port Patrol Officer LAB Atrial Lead No OTHER OUTSIDE Investigational LAB Atrial Lead active fixation OTHER OUTSIDE Fixation LAB Atrial Lead right atrial appendage OTHER OUTSIDE Location LAB Atrial Lead Pin IS1 OTHER OUTSIDE Connector LAB Atrial Lead Bipolar OTHER OUTSIDE Polarity LAB RV Lead Model # CAPSUREFIX MRI SURESCAN OTHER OUTSIDE 5086-58cm LAB RV Lead Serial [id number] OTHER OUTSIDE # LAB RV Lead Implant 10/18/2011 OTHER OUTSIDE Date LAB RV Lead Diaph. 10 OTHER OUTSIDE Stimulation LAB RV Lead Medtronic OTHER OUTSIDE Port Patrol Officer LAB RV Lead No OTHER OUTSIDE Investigational [...] By LAB Device [employer] OTHER OUTSIDE [place] LAB Transmitter Compatible On AntiCoag 10/10/16 OTHER OUTSIDE Date LAB Known Diagnosed Yes OTHER OUTSIDE AFib LAB On Yes OTHER OUTSIDE Anticoagulation LAB Generator MRI Yes OTHER OUTSIDE Conditional LAB Atrial Lead MRI Yes OTHER OUTSIDE Conditional LAB LV Lead MRI Yes OTHER OUTSIDE Conditional LAB Underlying Mobitz II ASVS 51 bpm with NM OTHER OUTSIDE Rhythm 400 ms on conducted beats and LAB occasional dropped beat. -VS% <1 OTHER OUTSIDE LAB -PEDIATRIC ONCOLOGIST% 11.4 OTHER OUTSIDE LAB -VS% <1 OTHER OUTSIDE LAB AP-PEDIATRIC ONCOLOGIST% 88.3 OTHER OUTSIDE LAB # Mode S. [...] V Events 1 OTHER OUTSIDE LAB Estimated DIRECTOR GENERAL is 2.81 OTHER OUTSIDE Longevity LAB Initial [...] Primary Atrial fibrillation Cardiac pacemaker in situ documented in this encounter
--- OUTSIDE RECORDS SUMMARY | 2018-12-05 14:24 | XMS REPORT | Encounter Summary ---
Author Author [facility] Organization [facility] Address Unknown Phone Unavailable Care Team Providers Care Weigher And Mixer Name Role Phone Dorian Muse MD Unavailable Ernesto Sosa MD [address] Monterroso MD Unavailable Unavailable Dana Birmingham RN Unavailable Unavailable Severiano Daniel DO Unavailable Yarely Vega MD PCP Reason for Visit * Reason Comments Labs Only Encounter Details Care Team Description Date Type Department Paroxysmal atrial fibrillation (HCC); Cardiac pacemaker in situ 05/18/2017 Lab Only The [facility] [address] [facility] [address] [place] [address] Social History Date Tobacco Use [...] filedocumented as of this encounter Visit Diagnoses Diagnosis Paroxysmal atrial fibrillation (HCC) Atrial fibrillation Cardiac pacemaker in situ documented in this encounter
--- OUTSIDE RECORDS SUMMARY | 2018-12-05 14:24 | XMS REPORT | Encounter Summary ---
Author Author [facility] Organization [facility] Address Unknown Phone Unavailable Care Team Providers Care Pearl Diver Name Role Phone Dorian Muse MD Unavailable Ernesto Sosa MD [address]ter[address] MD Unavailable Unavailable Dana Birmingham RN Unavailable Unavailable Severiano Daniel DO Unavailable Yarely Vega MD PCP Reason for Visit * Reason Comments Medication Question verify Amiodarone instructions Encounter Details Care Team Description Date Type Department Leann Nguyen, evaporator operator molasses Question (verify Amiodarone instructions) 05/22/2017 Tele[address] [phone] Social History Date Tobacco Use Types Packs/Day [...] Leann Nguyen, STEVEN - 05/22/2017 9:40 AM LAND MANAGER 05/22/17 [phone] Daughter calling to see what dose of Amiodarone pt matheusu ld be taking. I spoke to daughter. Last MAC ov was 05/18/17. Amiodarone dose was decreased to 100 mg per day . Daughter verbalized understanding. Refilled Amiodarone - [facility] pharmacy # [id number] - 3 refills ---- Message from Shalini Blake sent at 05/22/2017 8:23 AM LAND MANAGER ----- Regarding: VM-MPE,Medication Patient called Monday with Medication questions. Home is the call back. MANAGER documented in this encounter Plan of Treatment Not on filedocumented as of this encounter Visit Diagnoses Not on filedocumented in this encounter
--- OUTSIDE RECORDS SUMMARY | 2018-12-05 14:24 | XMS REPORT | Encounter Summary ---
Author Author [facility] Organization [facility] Address Unknown Phone Unavailable Care Team Providers Care Forestry Instructor Name Role Phone Dorian Muse MD Unavailable Ernesto Sosa MD [address] Monter[address] MD Unavailable Unavailable Dana Birmingham RN Unavailable Unavailable Severiano Daniel DO Unavailable Yarely Vega MD PCP Encounter Details Care Team Description Date Type Department Marty Trejo MD [address] [facility] [address] [place] [address] [phone] 05/18/2017 Orders Only The [facility] [address] [facility] [address] [place] [address] Social History Date Tobacco Use Types Packs/Day [...] Name Priority Date/Time Associated Diagnosis THYROID STIMULATING 05/18/2017 HORMONE-TSH 3:14 PM PASSENGER TRAIN BRAKER FREE T4 (FREE THYROXINE) 05/18/2017 ONLY 3:14 PM PASSENGER TRAIN BRAKER DIGOXIN LEVEL 05/18/2017 3:14 PM PASSENGER TRAIN BRAKER documented in this encounter Results * DIGOXIN LEVEL (05/18/2017 3:14 PM PASSENGER TRAIN BRAKER) Digoxin 0.6 (L) 0.8 - 2.0 mcg/L [facility] Comment: DIAGNOSTICS LILLI Anti-Digoxin (Digibind(R)) in serum/plasma of patients under toxicity therapy may interfere with the digoxin immunoassay. Test Performed at: [place] [id number], [id number] CARLITOS HERNANDEZ DO,MPH Specimen Performing Organization Address [facility] Phone Number Outside.in [address] [place], [place] [address] [address] * THYROID STIMULATING HORMONE-TSH (05/18/2017 3:14 PM PASSENGER TRAIN BRAKER) TSH 3rd 5.02 (H) 0.40 - 4.50 mIU/L [facility] Comment: DIAGNOSTICS Test Performed at: [place] [id number], [id number] CARLITOS HERNANDEZ DO,MPH Specimen Performing Organization Address [facility] Phone Number Outside.in [facility] [address] [place] [address] * FREE T4 (FREE THYROXINE) ONLY (05/18/2017 3:14 PM PASSENGER TRAIN BRAKER) Pathologist [facility] T4-Free 1.3 0.8 - 1.8 ng/dL [employer] Comment: DIAGNOSTICS Test Performed at: [place] [id number], [id number] CARLITOS HERNANDEZ DO,MPH Specimen Performing Organization Address [facility] Phone Number Outside.in [facility] [address] [place] [address] documented in this encounter Visit Diagnoses Not on filedocumented in this encounter
--- OUTSIDE RECORDS SUMMARY | 2018-12-05 14:24 | XMS REPORT | Encounter Summary ---
Author Author [facility] Organization [facility] Address Unknown Phone Unavailable Care Team Providers Care Diabetologist Name Role Phone Dorian Muse MD Unavailable Ernesto Sosa MD [address]ter[address] MD Unavailable Unavailable Dana Birmingham RN Unavailable Unavailable Severiano Daniel DO Unavailable Yarely Vega MD PCP Reason for Visit * Reason Comments Amiodarone Monitoring completed 05/18/17 due 11/15/16 Encounter Details Care Team Description Date Type Department Sasha Chen RN Amiodarone Monitoring (completed 05/18/17 due 11/15/16) 05/19/2017 Documentation The [facility] [address] [place] [address] [place] [address] Social History Date Tobacco Use Types Packs/Day [...] Sasha Chen RN - 05/19/2017 2:30 PM CHANGE MANAGER labs results reviewed with her daughter GE MANAGER * Sasha Chen RN - 05/19/2017 2:30 PM CHANGE MANAGER Amiodarone Monitoring status as of 05/19/17: Amiodarone monitoring complete. Next amiodarone review is due in 180 days. Most recent lab results Lab Results Component Value Date/Time AST 24 04/24/2017 ALT 24 04/24/2017 TSH 6.17 (H) 04/24/2017 TSH3G 5.02 (H) 05/18/2017 03:14 PM [id number] 1.3 05/18/2017 03:14 PM Procedures Last chest X-Ray: 04/27/17 Last PFT: 12/03/14 Last eye exam: GE MANAGER documented in this encounter Plan of Treatment Not on filedocumented as of this encounter Visit Diagnoses Not on filedocumented in this encounter
--- OUTSIDE RECORDS SUMMARY | 2018-12-05 14:25 | XMS REPORT | Encounter Summary ---
Author Author [facility] Organization [facility] Address Unknown Phone Unavailable Care Team Providers Care Pbx Mechanic Name Role Phone Dorian Muse MD Unavailable Ernesto Sosa MD [address]ter[address] MD Unavailable Unavailable Dana Birmingham RN Unavailable Unavailable Severiano Daniel DO Unavailable Yarely Vega MD PCP Encounter Details Care Team Description Date Type Department Sasha Chen RN 04/26/2017 Telephone The [facility] [address] [place] [address] Social History Date Tobacco Use Types Packs/Day [...] Sasha Chen RN - 04/26/2017 5:03 PM ELECTRICAL LABORATORY TECHNICIAN refaxed order after Dr Trejo signed TRICAL LABORATORY TECHNICIAN * Telephone Encounter - Sasha Chen RN - 04/26/2017 5:03 PM ELECTRICAL LABORATORY TECHNICIAN ----- Message from Mena Dozier RN sent at 04/26/2017 1:28 PM ELECTRICAL LABORATORY TECHNICIAN ----- Regarding: FW: VM-Chest X-ray ----- Message ----- From: Shalini Blake Sent: 04/26/2017 1:10 PM To: Mac Nurse Kennedy Subject: VM-Chest X-ray Yaquelin with [facility] calling. patient came in with chest x-ray order. They need a signed,date and timed order faxed to [phone] Call back is [phone] TRICAL LABORATORY TECHNICIAN documented in this encounter Plan of Treatment Not on filedocumented as of this encounter Visit Diagnoses Not on filedocumented in this encounter
--- OUTSIDE RECORDS SUMMARY | 2018-12-05 14:25 | XMS REPORT | Encounter Summary ---
Author Author [facility] Organization [facility] Address Unknown Phone Unavailable Care Team Providers Care Shot Packer Name Role Phone Dorian Muse MD Unavailable Ernesto Soas MD [address] MD Unavailable Unavailable Dana Birmingham RN Unavailable Unavailable Severiano Daniel DO Unavailable Yarely Vega MD PCP Reason for Visit * Reason Comments Results CXR completed outside hospital Encounter Details Care Team Description Date Type Department Sasha Chen, RN Results (CXR completed outside hospital) 05/09/2017 Documentation The [facility] [address] [place] [address] Social History Date Tobacco Use Types Packs/Day [...] this encounter Progress Notes * Sasha Chen, STEVEN - 05/09/2017 1:30 PM COMMERCIAL INSTALLER [facility]: 04/27/17 CXR Impression: [id number] hiatal hernia. cardiomegaly. will send report to be scanned ERCIAL INSTALLER documented in this encounter Plan of Treatment Not on filedocumented as of this encounter Visit Diagnoses Not on filedocumented in this encounter
--- OUTSIDE RECORDS SUMMARY | 2018-12-05 14:25 | XMS REPORT | Encounter Summary ---
Author Author [facility] Organization [facility] Address Unknown Phone Unavailable Care Team Providers Care Supervisor Poultry Hatchery Name Role Phone Dorian Muse MD Unavailable Ernesto Sosa MD 100 Melvin Monterroso MD Unavailable Unavailable Dana Birmingham RN Unavailable Unavailable Severiano Daniel DO Unavailable Yarely Vega MD PCP Encounter Details Care Team Description Date Type Department Marty Trejo MD [address] [facility] [place] [address] [phone] 05/18/2017 [facility] [id number] [place] [address] [address] [place] [address] Social History Date Tobacco Use Types Packs/Day [...] 0 gram tablet mouth at bedtime daily. 05/18/2017 05/22/2017 amiodarone (CORDARONE) Take 0.5 90 tablet 3 200 mg tablet tablets by mouth daily. Take with food. 05/04/2018 amLODIPine (NORVASC) 5 mg Take 2.5 mg 0 tablet by mouth daily. 05/04/2018 Erythromycin 250 mg cpDR Take 1 Cap by 0 mouth three times daily before meals. 05/04/2018 metoprolol tartrate Take 25 mg by 0 (LOPRESSOR) 25 mg tablet mouth twice daily. 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 MINISTRIES PROFESSOR documented in this encounter Results * DEVICE EVALUATION - PPM (05/18/2017 1:16 PM PRACTICAL MINISTRIES PROFESSOR) [facility] Signature Generator Model REVO MRI [id number] OTHER OUTSIDE # LAB Generator [id number] OTHER OUTSIDE Serial # LAB Generator 10/18/2011 OTHER OUTSIDE Implnat Date LAB FÉLIX/EOL OPTICS TECHNICAL OFFICER=2.81V OTHER OUTSIDE Indicator LAB Generator Medtronic OTHER OUTSIDE Instrument Engineer LAB Generator No OTHER OUTSIDE Investigational LAB Wireless No OTHER OUTSIDE Generator LAB Device Type DDD-PM OTHER OUTSIDE LAB Atrial Lead CAPSUREFIX MRI SURESCAN OTHER OUTSIDE Model # 5086-52cm LAB Atrial Lead [id number] OTHER OUTSIDE Serial # LAB Atrial Lead 10/18/2011 OTHER OUTSIDE Implant Date LAB Atrial Lead 10 OTHER OUTSIDE Diaph. LAB Stimulation Atrial Lead Medtronic OTHER OUTSIDE Instrument Engineer LAB Atrial Lead No OTHER OUTSIDE Investigational LAB Atrial Lead active fixation OTHER OUTSIDE Fixation LAB Atrial Lead right atrial appendage OTHER OUTSIDE Location LAB Atrial Lead Pin IS1 OTHER OUTSIDE Connector LAB Atrial Lead Bipolar OTHER OUTSIDE Polarity LAB RV Lead Model # CAPSUREFIX MRI SURESCAN OTHER OUTSIDE 5086-58cm LAB RV Lead Serial [id number] OTHER OUTSIDE # LAB RV Lead Implant 10/18/2011 OTHER OUTSIDE Date LAB RV Lead Diaph. 10 OTHER OUTSIDE Stimulation LAB RV Lead Medtronic OTHER OUTSIDE Instrument Engineer LAB RV Lead No OTHER OUTSIDE Investigational [...] OTHER OUTSIDE Monitoring? LAB EP Device Dr. Emert OTHER OUTSIDE Followed by LAB Name EP Device MAC OTHER OUTSIDE Followed By LAB Device [facility] OTHER OUTSIDE [place] LAB Transmitter Compatible On AntiCoag 10/10/16 OTHER OUTSIDE Date LAB Known Diagnosed Yes OTHER OUTSIDE AFib LAB On Yes OTHER OUTSIDE Anticoagulation LAB Generator MRI Yes OTHER OUTSIDE Conditional LAB Atrial Lead MRI Yes OTHER OUTSIDE Conditional LAB LV Lead MRI Yes OTHER OUTSIDE Conditional LAB Initial Rhythm AP-GEOGRAPHIC INFORMATION SYSTEM SURVEYOR OTHER OUTSIDE LAB Underlying SB 51 bpm OTHER OUTSIDE Rhythm LAB # Mode S. 233 Treated/50 monitored OTHER OUTSIDE Events LAB # High AT/AF - OTHER OUTSIDE Evts LAB Time in AT/AF 3.3% OTHER OUTSIDE LAB V Rate in AT/AF Mostly 100 bpm OTHER OUTSIDE LAB Single PVSc 1.4/hr (2.5) OTHER OUTSIDE LAB PVC runs 0.2/hr (0.6) OTHER OUTSIDE LAB Battery Voltage 2.95 (OPTICS TECHNICAL OFFICER @ 2.81) OTHER OUTSIDE LAB A Sense mv 3.6 OTHER OUTSIDE LAB A Capture V 1.0 OTHER OUTSIDE LAB A Capture ms 0.4 OTHER OUTSIDE LAB A Lead ohms 360 OTHER OUTSIDE LAB RV Sense mv 19 OTHER OUTSIDE LAB RV Capture V 1.0 OTHER OUTSIDE LAB RV Capture ms 0.4 OTHER OUTSIDE LAB RV Lead ohms 536 OTHER OUTSIDE LAB LV Sense mv - OTHER OUTSIDE LAB EP LV Capture V - OTHER OUTSIDE LAB LV Capture ms - OTHER OUTSIDE LAB LV Lead ohms - OTHER OUTSIDE LAB Counters Clrd Yes OTHER OUTSIDE LAB Saved to Disc No OTHER OUTSIDE LAB Device Function Yes OTHER OUTSIDE WNL LAB Device No OTHER OUTSIDE Reprogram LAB V-V Timing - OTHER OUTSIDE LAB Ao Voltage 2.0 OTHER OUTSIDE LAB AO Pulse Width 0.4 OTHER OUTSIDE LAB RV Voltage 2.0 OTHER OUTSIDE LAB RV Pulse Width 0.4 OTHER OUTSIDE LAB LV Voltage - OTHER OUTSIDE LAB LV Pulse Width - OTHER OUTSIDE LAB # High V Events 0 OTHER OUTSIDE LAB Magent Rate - OTHER OUTSIDE LAB Estimated - OTHER OUTSIDE Longevity LAB Initial Rhythm APVP 73 bpm OTHER OUTSIDE LAB Programming? Yes OTHER OUTSIDE LAB Interrogation? Yes OTHER OUTSIDE LAB Remote Check? No OTHER OUTSIDE LAB -VS% <1 OTHER OUTSIDE LAB -GEOGRAPHIC INFORMATION SYSTEM SURVEYOR% 3.4 OTHER OUTSIDE LAB -VS% <1 OTHER OUTSIDE LAB AP-GEOGRAPHIC INFORMATION SYSTEM SURVEYOR% 96.6 OTHER OUTSIDE LAB Specimen Narrative Performed At OTHER OUTSIDE LAB OP Clinic Check [05/18/2017 2:08:07 PM - REBEKAH BARAHONA] [05/19/2017 6:58:48 AM - JIMMY DALY] Dual chamber pacemaker programming.Device function appears normal. GEOGRAPHIC INFORMATION SYSTEM SURVEYOR >99%. Pts underlying [place] interval today ~360 ms. Last visit [place] interval was 340 ms and [place] interval [...] monitor. Report given to MPE in clinic. Performing Organization Address City/State/Zipcode Phone Number OTHER OUTSIDE LAB documented in this encounter Visit Diagnoses Diagnosis Cardiac device in situ Unspecified cardiac device in situ documented in this encounter
--- OUTSIDE RECORDS SUMMARY | 2018-12-05 14:26 | XMS REPORT | Encounter Summary ---
Author Author [facility] Organization [facility] Address Unknown Phone Unavailable Care Team Providers Care Block Feeder Name Role Phone Dorian Muse MD Unavailable Ernesto Sosa MD 100 Melvin Monterroso MD Unavailable Unavailable Dana Birmingham RN Unavailable Unavailable Severiano Daniel DO Unavailable Yarely Vega MD PCP Encounter Details Care Team Description Date Type Department Shalini Blake Paroxysmal atrial fibrillation (HCC) 04/25/2017 Orders Only [facility] [address] [place] [address] Social History Date Tobacco Use [...] Comments Procedure Name Priority Date/Time Associated Diagnosis TSH WITH FREE T4 REFLEX Routine 04/24/2017 Paroxysmal atrial fibrillation (HCC) LIVER FUNCTION PANEL Routine 04/24/2017 Paroxysmal atrial fibrillation (HCC) documented in this encounter Results * TSH WITH FREE T4 REFLEX (04/24/2017) T4-Free 0.98 [facility] TSH 6.17 (H) 0.49 - 4.67 [facility] Specimen Blood - Blood Narrative Performed At Performing Organization Address City/[facility] Phone Number [facility] [address] [place] [address] 10A * LIVER FUNCTION PANEL (04/24/2017) Total Bilirubin 0.7 [facility] Bilirubin, 0.1 [facility] Direct [facility] Albumin 4.1 [facility] Alk Phosphatase 50 [facility] AST (SGOT) 24 [facility] ALT (SGPT) 24 [facility] Total Protein [facility] Specimen Blood - Blood Narrative Performed At Performing Organization Address [facility] Phone Number [facility] [address] [place] [address] 10A documented in this encounter Visit Diagnoses Diagnosis Paroxysmal atrial fibrillation (HCC) Atrial fibrillation documented in this encounter
--- OUTSIDE RECORDS SUMMARY | 2018-12-05 14:26 | XMS REPORT | Encounter Summary ---
Author Author [facility] Organization [facility] Address Unknown Phone Unavailable Care Team Providers Care Survey Associate Name Role Phone Dorian Muse MD Unavailable Ernesto Sosa MD 100 Melvin Monterroso MD Unavailable Unavailable Dana Birmingham RN Unavailable Unavailable Severiano Daniel DO Unavailable Yarely Vega MD PCP Reason for Visit * Reason Comments Amiodarone Monitoring due for labs & CXR, letter & reqs sent. Encounter Details Care Team Description Date Type Department Andrea Asencio RN Amiodarone Monitoring (due for labs & CXR, letter & reqs sent.) 04/19/2017 Documentation [facility] [address] [place] [address] Social History Date Tobacco Use [...] Alcantar RN Sent: 12/12/2016 To: Олег Nurse Kennedy Subject: FW: LFT due 12/2016, TSH due 02/2017, CXR due 09/2017 ----- Message ----- From: Aria Alcantar RN Sent: 12/12/2016 To: Aria Alcantar RN Subject: LFT due 12/2016, TSH due 02/2017, CXR due 04* documented in this encounter Plan of Treatment Order Schedule Name Type Priority Associated Diagnoses Expected: 04/19/2017 (Approximate), Expires: 04/19/2018 CHEST 2 VIEWS Imaging Routine Paroxysmal atrial fibrillation (HCC) documented as of this encounter Results * TSH WITH FREE T4 REFLEX (04/24/2017) T4-Free 0.98 [facility] TSH 6.17 (H) 0.49 - 4.67 [facility] Specimen Blood - Blood Narrative Performed At Performing Organization Address [facility] Phone Number [facility] [address] [place] [address] 10A * LIVER FUNCTION PANEL (04/24/2017) Total Bilirubin 0.7 [facility] Bilirubin, 0.1 [facility] Albumin 4.1 [facility] Alk Phosphatase 50 [facility] AST (SGOT) 24 [facility] ALT (SGPT) 24 [facility] Total Protein [facility] Specimen Blood - Blood Narrative Performed At Performing Organization Address [facility] Phone Number [facility] [address] [place] [address] 10A documented in this encounter Visit Diagnoses Diagnosis Paroxysmal atrial fibrillation (HCC) - Primary Atrial fibrillation documented in this encounter
--- OUTSIDE RECORDS SUMMARY | 2018-12-05 14:26 | XMS REPORT | Encounter Summary ---
Author Author [facility] Organization [facility] Address Unknown Phone Unavailable Care Team Providers Care Auto Body Worker Name Role Phone Dorian Muse MD Unavailable Ernesto Sosa MD 100 Melvin Monterroso MD Unavailable Unavailable Dana Birmingham RN Unavailable Unavailable Severiano Daniel DO Unavailable Yarely Vega MD PCP Encounter Details Care Team Description Date Type Department Ernesto Sosa MD [address] [facility] [place] [address] [phone] 02/22/2017 Hospital Cardiovascular Medicine Encounter Remote Device Check [phone] Social History Date Tobacco Use Types Packs/Day [...] 15 mg by 0 mouth twice daily. cyanocobalamin (VITAMIN Inject 1 mL 0 [...] 40 mg by 0 tablet mouth daily. liothyronine (CYTOMEL) 5 Take 5 mcg [...] 0 gram tablet mouth at bedtime daily. 11/18/2016 05/18/2017 amiodarone (CORDARONE) Take 1 Tab by 90 Tab 3 200 mg tablet mouth daily. 05/04/2018 amLODIPine (NORVASC) 5 mg Take 2.5 mg 0 tablet by mouth daily. 05/18/2017 Calcium Carbonate-Vitamin Take 1 Tab by 0 D3 (VITAMIN D-3) mouth daily. 180-5,000 mg-unit Tab 05/04/2018 Erythromycin 250 mg cpDR Take 1 Cap by 0 mouth three times daily before meals. 05/18/2017 levothyroxine (SYNTHROID) Take 125 mcg 0 125 mcg tablet by mouth daily 30 minutes before breakfast. 05/18/2017 meclizine (ANTIVERT) 25 Take 25 mg by 0 mg tablet mouth as Needed. 07/08/2013 05/18/2017 metoprolol (LOPRESSOR) 25 Take 0.5 Tabs 180 Tab 3 mg tablet by mouth twice daily. 05/18/2017 NYSTATIN (BULK) MISC Use 200 mg as 0 directed as Needed. 04/11/2012 05/04/2018 [place]-3 Acid Ethyl Esters Take 1 Cap by 360 Cap 2 (LOVAZA) 1 gram cap mouth four times daily. 05/18/2017 promethazine (PHENERGAN) Take 25 mg by 0 25 mg tablet mouth every 6 hours as needed for Nausea. 05/04/2018 topiramate (TOPAMAX) 25 Take 25 mg by 0 mg tablet mouth twice daily. 05/04/2018 traMADol (ULTRAM) 50 mg Take 50 mg by 0 tablet mouth every 6 hours as needed. documented as of this encounter Plan of Treatment Not on filedocumented as of this encounter Procedures Comments Procedure Name Priority Date/Time Associated Diagnosis DEVICE EVALUATION - Routine 03/01/2017 Cardiac pacemaker in situ REMOTE PPM 11:32 AM CDT Paroxysmal atrial fibrillation (HCC) documented in this encounter Results * DEVICE EVALUATION - REMOTE PPM (03/01/2017 11:32 AM CDT) Generator OTHER OUTSIDE Electroformer LAB Other Generator Model REVO MRI RVDR01 OTHER OUTSIDE # LAB Generator [id number] OTHER OUTSIDE Serial # LAB Generator 10/18/2011 OTHER OUTSIDE Implnat Date LAB Advisory Info OTHER OUTSIDE LAB Advisory Info 2 OTHER OUTSIDE LAB Permanent OTHER OUTSIDE Comments LAB Permanent OTHER OUTSIDE Comments 2 LAB Permanent OTHER OUTSIDE Comments 3 LAB Permanent OTHER OUTSIDE Comments 4 LAB Permanent OTHER OUTSIDE Comments 5 LAB Permanent OTHER OUTSIDE Comments 6 LAB Permanent OTHER OUTSIDE Comments 7 LAB Research OTHER OUTSIDE Comments LAB Research OTHER OUTSIDE Comments 2 LAB FÉLIX/EOL WEIGHT CONTROL ENGINEER=2.81V OTHER OUTSIDE Indicator LAB Generator Medtronic OTHER OUTSIDE Electroformer LAB Generator No OTHER OUTSIDE Investigational LAB Wireless No OTHER OUTSIDE Generator LAB Device Type DDD-PM OTHER OUTSIDE LAB Other Implant OTHER OUTSIDE Info LAB Atrial Lead OTHER OUTSIDE Electroformer LAB Other Atrial Lead CAPSUREFIX MRI SURESCAN OTHER OUTSIDE Model # 5086-52cm LAB Atrial Lead [id number] OTHER OUTSIDE Serial # LAB Atrial Lead 10/18/2011 OTHER OUTSIDE Implant Date LAB Atrial Lead OTHER OUTSIDE Location Other LAB Atrial Lead OTHER OUTSIDE Polarity Other LAB Atrial Lead 10 OTHER OUTSIDE Diaph. LAB Stimulation Atrial Lead Medtronic OTHER OUTSIDE Electroformer LAB Atrial Lead No OTHER OUTSIDE Investigational LAB Atrial Lead active fixation OTHER OUTSIDE Fixation LAB Atrial Lead right atrial appendage OTHER OUTSIDE Location LAB Atrial Lead Pin IS1 OTHER OUTSIDE Connector LAB Atrial Lead Bipolar OTHER OUTSIDE Polarity LAB RV Lead OTHER OUTSIDE Electroformer LAB Other RV Lead Model # CAPSUREFIX MRI SURESCAN OTHER OUTSIDE 5086-58cm LAB RV Lead Serial [id number] OTHER OUTSIDE # LAB RV Lead Implant 10/18/2011 OTHER OUTSIDE Date LAB RV Lead OTHER OUTSIDE Location Other LAB RV Lead Diaph. 10 OTHER OUTSIDE Stimulation LAB RV Lead Medtronic OTHER OUTSIDE Electroformer LAB RV Lead No OTHER OUTSIDE Investigational LAB RV Lead active fixation OTHER OUTSIDE Fixation LAB RV Lead RV low septum OTHER OUTSIDE Location LAB RV Lead Pin IS1 OTHER OUTSIDE Connector ICD LAB RV Lead Coil OTHER OUTSIDE LAB LV Lead OTHER OUTSIDE Electroformer LAB Other LV Lead Model # OTHER OUTSIDE LAB LV Lead Serial OTHER OUTSIDE # LAB LV Lead Implant OTHER OUTSIDE Date LAB LV Lead OTHER OUTSIDE Location Other LAB LV Lead OTHER OUTSIDE Polarity Other LAB LV Lead OTHER OUTSIDE Configuration LAB Other LV Lead OTHER OUTSIDE Electroformer LAB LV Lead OTHER OUTSIDE Investigational LAB LV Lead OTHER OUTSIDE Fixation LAB LV Lead OTHER OUTSIDE Location LAB LV Lead Pin OTHER OUTSIDE Connector LAB LV Lead OTHER OUTSIDE Polarity LAB LV Lead OTHER OUTSIDE Configuration LAB Device Mode DDDR OTHER OUTSIDE LAB Lower Rate 70 OTHER OUTSIDE Limit LAB Upper Rate 130 OTHER OUTSIDE Limit LAB Sensor Rate 130 OTHER OUTSIDE Limit LAB Pace AV Delay 180 OTHER OUTSIDE LAB Sense AV Delay 150 OTHER OUTSIDE LAB VT Monitor 150 OTHER OUTSIDE LAB VT Detect Rate OTHER OUTSIDE (bpm) LAB VT Detect Rate OTHER OUTSIDE Tx LAB FVT Detect Rate OTHER OUTSIDE (bpm) LAB FVT Detect Rate OTHER OUTSIDE Tx LAB VF Detect Rate OTHER OUTSIDE (bpm) LAB VF Detect Rate OTHER OUTSIDE Tx LAB Mode Switch >150 OTHER OUTSIDE (bpm) LAB High A Rate OTHER OUTSIDE Detect LAB High V Rate >150 OTHER OUTSIDE Detect LAB Mode Switch On OTHER OUTSIDE Status LAB Device Ernesto Sosa M.D. OTHER OUTSIDE Implanted By LAB Phone Check OTHER OUTSIDE Next Due LAB Pacemaker No OTHER OUTSIDE Dependant LAB Date of Last 11/18/16 OTHER OUTSIDE Programming LAB Next OTHER OUTSIDE Programming LAB Check Due Date of Last OTHER OUTSIDE Interrogation LAB Date of Last OTHER OUTSIDE ICM Evaluation LAB Next ICM Check OTHER OUTSIDE Due LAB HF Patient No OTHER OUTSIDE LAB Date of Last 10/10/16 OTHER OUTSIDE Remote Check LAB Next Remote 02/22/17 OTHER OUTSIDE Check Due LAB Enrollment Date OTHER OUTSIDE LAB Date of OTHER OUTSIDE baseline remote LAB transmission AT/AF Daily OTHER OUTSIDE [place] Hours LAB Average Vent OTHER OUTSIDE Rate during LAB AT/AF #BPM Average Vent OTHER OUTSIDE Rate During LAB AT/AF #Hours Remote Yes OTHER OUTSIDE Monitoring? LAB Daily [place] OTHER OUTSIDE Threshld Alert? LAB Average OTHER OUTSIDE Venticular Rate LAB AT/AF On/Off VF OTHER OUTSIDE Detection/Thera LAB py Off EP Device Dr. Trejo OTHER OUTSIDE Followed by LAB Name EP Device MAC OTHER OUTSIDE Followed By LAB Device OTHER OUTSIDE [place] [facility] Transmitter Device [facility] OTHER OUTSIDE [place] [facility] Transmitter Compatible On AntiCoag 10/10/16 OTHER OUTSIDE Date LAB ATP Date OTHER OUTSIDE LAB Device Shock OTHER OUTSIDE Date LAB Known Diagnosed Yes OTHER OUTSIDE AFib LAB On Yes OTHER OUTSIDE Anticoagulation LAB Known Diagnosed OTHER OUTSIDE VT VT LAB ATP OTHER OUTSIDE LAB Device Shock OTHER OUTSIDE LAB Generator MRI Yes OTHER OUTSIDE Conditional LAB Atrial Lead MRI Yes OTHER OUTSIDE Conditional LAB RV Lead MRI OTHER OUTSIDE Conditional LAB LV Lead MRI Yes OTHER OUTSIDE Conditional LAB Other Reason OTHER OUTSIDE Not Remote LAB Patient Remote Monitor OTHER OUTSIDE Serial# LAB Accssory Serial OTHER OUTSIDE Number LAB Reason Not OTHER OUTSIDE Being Remote LAB Patient Remote OTHER OUTSIDE Connectivity LAB Device Remote OTHER OUTSIDE Manual LAB Downloads Specimen Narrative Performed At OTHER OUTSIDE LAB Current Monitoring Period: 02/22/17 through 05/23/17 [03/01/2017 11:32:52 AM - RITA GUERRA] Scheduled [facility] transmission received.Device function appears normal. Events noted since 11/18/16: Atrial:13 monitored and 68 treated AT/AF events for 4.6% of the time. Available EGM's show AF with V-pacing. Ventricular:None. Please see scanned data sheets for further review as needed.Pt is scheduled to follow up on 05/18/17 with MPE at the OP office.Pt is on Pradaxa. Performing Organization Address City/State/Zipcode Phone Number OTHER OUTSIDE LAB documented in this encounter Visit Diagnoses Diagnosis Cardiac pacemaker in situ Paroxysmal atrial fibrillation (HCC) Atrial fibrillation documented in this encounter
--- OUTSIDE RECORDS SUMMARY | 2018-12-05 14:27 | XMS REPORT | Encounter Summary ---
Author Author [facility] Organization [facility] Address Unknown Phone Unavailable Care Team Providers Care Coverer Name Role Phone Dorian Muse MD Unavailable Ernesto Sosa MD 100 Melvin Monterroso MD Unavailable Unavailable Dana Birmingham RN Unavailable Unavailable Severiano Daniel DO Unavailable Yarely Vega MD PCP Encounter Details Care Team Description Date Type Department Marty Trejo MD [address] [facility] [place] [address] [phone] 11/18/2016 [facility] [id number] [place] [address] [address] [place] [address] Social History Date Tobacco Use Types Packs/Day [...] as 0 directed as Needed. 04/11/2012 05/04/2018 [place]-3 Acid Ethyl Esters Take 1 Cap by [...] Associated Diagnosis DEVICE EVALUATION - PPM Routine 11/18/2016 Paroxysmal atrial 9:09 AM CDT fibrillation (HCC) documented in this encounter Results * DEVICE EVALUATION - PPM (11/18/2016 9:09 AM CDT) Generator OTHER OUTSIDE Waxing Machine Operator LAB Other Generator Model REVO MRI [id number] OTHER OUTSIDE # LAB Generator [id number] OTHER OUTSIDE Serial # LAB Generator 10/18/2011 [...] Research OTHER OUTSIDE Comments 2 LAB FÉLIX/EOL POLICE MATRON=2.81V OTHER OUTSIDE Indicator LAB Generator Medtronic OTHER OUTSIDE Waxing Machine Operator LAB Generator No OTHER OUTSIDE Investigational LAB Wireless No OTHER OUTSIDE Generator LAB Device Type DDD-PM OTHER OUTSIDE LAB Other Implant OTHER OUTSIDE Info LAB Atrial Lead OTHER OUTSIDE Waxing Machine Operator LAB Other Atrial Lead CAPSUREFIX MRI SURESCAN OTHER OUTSIDE Model # 5086-52cm LAB Atrial Lead [id number] OTHER OUTSIDE Serial # LAB Atrial Lead 10/18/2011 OTHER OUTSIDE Implant Date LAB Atrial Lead OTHER OUTSIDE Location Other LAB Atrial Lead OTHER OUTSIDE Polarity Other LAB Atrial Lead 10 OTHER OUTSIDE Diaph. LAB Stimulation Atrial Lead Medtronic OTHER OUTSIDE Waxing Machine Operator LAB Atrial Lead No OTHER OUTSIDE Investigational LAB Atrial Lead active fixation OTHER OUTSIDE Fixation LAB Atrial Lead right atrial appendage OTHER OUTSIDE Location LAB Atrial Lead Pin IS1 OTHER OUTSIDE Connector LAB Atrial Lead Bipolar OTHER OUTSIDE Polarity LAB RV Lead OTHER OUTSIDE Waxing Machine Operator LAB Other RV Lead Model # CAPSUREFIX MRI SURESCAN OTHER OUTSIDE 5086-58cm LAB RV Lead Serial [id number] OTHER OUTSIDE # LAB RV Lead Implant 10/18/2011 OTHER OUTSIDE Date LAB RV Lead OTHER OUTSIDE Location Other LAB RV Lead Diaph. 10 OTHER OUTSIDE Stimulation LAB RV Lead Medtronic OTHER OUTSIDE Waxing Machine Operator LAB RV Lead No OTHER OUTSIDE Investigational LAB RV Lead active fixation OTHER OUTSIDE Fixation LAB RV Lead RV low septum OTHER OUTSIDE Location LAB RV Lead Pin IS1 OTHER OUTSIDE Connector ICD LAB RV Lead Coil OTHER OUTSIDE LAB LV Lead OTHER OUTSIDE Waxing Machine Operator LAB Other LV Lead Model # OTHER OUTSIDE LAB LV Lead Serial OTHER OUTSIDE # LAB LV Lead Implant OTHER OUTSIDE Date LAB LV Lead OTHER OUTSIDE Location Other LAB LV Lead OTHER OUTSIDE Polarity Other LAB LV Lead OTHER OUTSIDE Configuration LAB Other LV Lead OTHER OUTSIDE Waxing Machine Operator LAB LV Lead OTHER OUTSIDE Investigational LAB [...] remote LAB transmission AT/AF Daily OTHER OUTSIDE [place]ow Hours LAB Average Vent OTHER OUTSIDE Rate during LAB AT/AF #BPM Average Vent OTHER OUTSIDE Rate During LAB AT/AF #Hours Remote Yes OTHER OUTSIDE Monitoring? LAB Daily [place] OTHER OUTSIDE Threshld Alert? LAB Average OTHER OUTSIDE Venticular Rate LAB AT/AF On/Off VF OTHER OUTSIDE Detection/Thera LAB py Off EP Device Dr. Trejo OTHER OUTSIDE Followed by LAB Name EP Device MAC OTHER OUTSIDE Followed By LAB Device OTHER OUTSIDE Gustine LAB Transmitter Device Carelink Express OTHER OUTSIDE Gustine LAB Transmitter Compatible On AntiCoag 10/10/16 OTHER [...] Lead MRI Yes OTHER OUTSIDE Conditional LAB # Mode S. 168 treated and 42 monitored OTHER OUTSIDE Events LAB # High AT/AF OTHER OUTSIDE Evts LAB # High V Events 0 OTHER OUTSIDE LAB Time in AT/AF OTHER OUTSIDE LAB V Rate in AT/AF OTHER OUTSIDE LAB Single PVSc 2.5/hr (was0.3) OTHER OUTSIDE LAB PVC runs 0.6/hr (was<0.1) OTHER OUTSIDE LAB Battery Voltage 2.96 OTHER OUTSIDE LAB Estimated POLICE MATRON is 2.81 OTHER OUTSIDE Longevity LAB Magent Rate OTHER OUTSIDE LAB A Sense mv 4.2 OTHER OUTSIDE LAB A Lead ohms 348 OTHER OUTSIDE LAB A Capture V 1.0 OTHER OUTSIDE LAB A Capture ms 0.4 OTHER OUTSIDE LAB Ao Voltage 2.0 OTHER OUTSIDE LAB AO Pulse Width 0.4 OTHER OUTSIDE LAB RV Sense mv 19.7 OTHER OUTSIDE LAB RV Lead ohms 539 OTHER OUTSIDE LAB RV Capture V 1.0 OTHER OUTSIDE LAB RV Capture ms 0.4 OTHER OUTSIDE LAB RV Voltage 2.0 OTHER OUTSIDE LAB RV Pulse Width 0.4 OTHER OUTSIDE LAB LV Sense mv OTHER OUTSIDE LAB LV Lead ohms OTHER OUTSIDE LAB EP LV Capture V OTHER OUTSIDE LAB LV Capture ms OTHER OUTSIDE LAB LV Voltage OTHER OUTSIDE LAB LV Pulse Width OTHER OUTSIDE LAB V-V Timing OTHER OUTSIDE LAB Counters Clrd Yes OTHER OUTSIDE LAB Saved to Disc OTHER OUTSIDE LAB Device OTHER OUTSIDE Reprogram LAB Comments Initial Rhythm APVP 70 bpm OTHER OUTSIDE LAB Underlying OTHER OUTSIDE Rhythm LAB -VS% <1 OTHER OUTSIDE LAB -RESPITE WORKER% 7.0 OTHER OUTSIDE LAB -VS% 1.7 OTHER OUTSIDE LAB AP-RESPITE WORKER% 91.2 OTHER OUTSIDE LAB Initial Rhythm OTHER OUTSIDE LAB Device Function Yes OTHER OUTSIDE WNL LAB Device Yes OTHER OUTSIDE Reprogram LAB Programming? Yes OTHER OUTSIDE LAB Interrogation? Yes OTHER OUTSIDE LAB Device Check by OTHER OUTSIDE Rep LAB Gustine OTHER OUTSIDE Transmitter LAB Check Activity OTHER OUTSIDE LAB HRV (range ms) OTHER OUTSIDE LAB FL IND RANGE OTHER OUTSIDE (Last Fluid LAB Index Range) FL IND OTHER OUTSIDE TODAY(Today LAB Fluid Index Value) THOR IMP OTHER OUTSIDE RANGE(Last LAB Optivol Thoracic Impedence Range) THOR IMP OTHER OUTSIDE TODAY(Today's LAB Optivol Thoracic Impedence Value) ICM Evaluation OTHER OUTSIDE LAB Thoracic OTHER OUTSIDE Impedance LAB Evaluated? Other Reason OTHER OUTSIDE Not Remote LAB Patient Remote Monitor OTHER OUTSIDE Serial# LAB Accssory Serial OTHER OUTSIDE Number LAB Remote Check? No OTHER OUTSIDE LAB Reason Not OTHER OUTSIDE Being Remote LAB Patient Remote OTHER OUTSIDE Connectivity LAB Device Remote OTHER OUTSIDE Manual LAB Downloads Specimen Narrative Performed At [11/18/2016 9:12:22 AM - JIMMY DALY] OTHER OUTSIDE LAB Dual chamber pacemaker programming.Device function appears normal. Events noted since 06/30/16: Atrial:168 treated and 42 monitored AT/AF episodes, longest 13 hours. 6.5% AT/AF burden. V rate controlled (>110 bpm <10% during AF). Known PAF/anticoag. Ventricular:0 Pt V paces 98.2%. Underlying WV interval 340 ms and underlying AR interval 420 ms. Pt wenckebachs when AP at 60 bpm. See below for changes. Changes made to programming:AAIR<=>DDDR to DDDR mode. Carelink remote monitoring is in place. Will continue to monitor. Report given to MPE in clinic. Performing Organization Address City/State/Zipcode Phone Number OTHER OUTSIDE LAB documented in this encounter Visit Diagnoses Diagnosis Paroxysmal atrial fibrillation (HCC) Atrial fibrillation documented in this encounter
--- OUTSIDE RECORDS SUMMARY | 2018-12-05 14:27 | XMS REPORT | Encounter Summary ---
Author Author [facility] Organization [facility] Address Unknown Phone Unavailable Care Team Providers Care Sanitary Plumber Name Role Phone Dorian Muse MD Unavailable Ernesto Sosa MD 100 Melvin Monterroso MD Unavailable Unavailable Dana Birmingham RN Unavailable Unavailable Severiano Daniel DO Unavailable Yarely Vega MD PCP Reason for Visit * Reason Comments Labs Only CMP,Lipid Encounter Details Care Team Description Date Type Department Shalini Blake Labs Only (CMP,Lipid) 11/21/2016 Documentation [facility] [address] [place] [address] Social History Date Tobacco Use [...] Comments Procedure Name Priority Date/Time Associated Diagnosis BASIC METABOLIC PANEL Routine 09/29/2016 LIPID PROFILE Routine 06/22/2016 documented in this encounter Results * BASIC METABOLIC PANEL (09/29/2016) Sodium 139 [facility] [place] Potassium 4.2 [facility] [place] Chloride 106 [facility] [place] CO2 23.0 (L) 24.0 - 34.0 [facility] [place] Blood Urea 21 [facility] Nitrogen [place] Creatinine 1.0 [facility] [place] Glucose 105 [facility] [place] Calcium 9.3 [facility] [place] eGFR Non 54 (L) >59 [facility] [place] Togolese eGFR [facility] [place] [place] Anion Gap 14 [facility] [place] Specimen Blood - Blood Narrative Performed At Performing Organization Address City[facility] Phone Number [facility] [place] [address] [place] [address] 10A * LIPID PROFILE (06/22/2016) Cholesterol 196 [facility] [place] Triglycerides 154 [facility] [place] HDL 63.0 [facility] [place] LDL 102 [facility] [place] VLDL [facility] [place] Non HDL [facility] Cholesterol [place] Cholesterol/HDL [facility] Ratio [place] Specimen Blood - Blood Performing Organization Address City[facility] Phone Number [facility] [place] [address] [place] [address] 10A documented in this encounter Visit Diagnoses Not on filedocumented in this encounter
--- OUTSIDE RECORDS SUMMARY | 2018-12-05 14:28 | XMS REPORT | Encounter Summary ---
Author Author [facility] Organization [facility] Address Unknown Phone Unavailable Care Team Providers Care Judge'S Clerk Name Role Phone Dorian Muse MD Unavailable Ernesto Sosa MD 100 Melvin Monterroso MD Unavailable Unavailable Dana Birmingham RN Unavailable Unavailable Severiano Daniel DO Unavailable Yarely Vega MD PCP Reason for Visit * Reason Comments Atrial fibrillation Dyspnea Encounter Details Care Team Description Date Type Department Marty Trejo MD [address] [facility] [place], [place] [id number] Atrial fibrillation; Dyspnea 11/18/2016 Office Visit [facility] [address] [facility] [address] [place] [address] Social History Date Tobacco Use Types Packs/Day [...] Signs Reading Time Taken Comments Vital Sign 122/70 11/18/2016 9:32 AM CDT Blood Pressure 73 11/18/2016 9:32 AM CDT Pulse - - Temperature - - Respiratory Rate - - Oxygen Saturation - - Inhaled Oxygen Concentration 83.7 kg (184 lb 9.6 oz) 11/18/2016 9:32 AM CDT Weight 167.6 cm (5' 6") 11/18/2016 9:32 AM CDT Height 29.8 11/18/2016 9:32 AM CDT Body Mass Index documented in this encounter Patient Instructions * Patient Instructions* Sasha Chen RN - 11/18/2016 10:40 AM CDT Increase amiodarone 200 mg every day Talk with primary care provider about night time oxygen Follow up with the EP nurse, Ynes Kidd in 6 months [phone] Vides if any symptoms of chest pain documented in this encounter Progress Notes * Marty Trejo MD - 11/18/2016 9:30 AM CDT Date of Service: 11/18/2016 Faiza Nation is a 81 y.o. female. HPI I had the pleasure of seeing your patient Faiza Nation in the [facility] as a part of the [facility] [place] office today fo r follow up regarding her Atrial Fibrillation and Permanent Pacemaker. Her Primary Bolt Threader is my friend and colleague, Dr. Gruber in [place], [place]. Ms. Nation is an exceptionally pleasant 81 y.o. Female, who is accompanied by h [...] ms during A-only pacing. She has a [id number] score of 4: Age (x2), Female, HTN. [...] 09/2013: Elevated Digoxin level --> Changed to [id number] dosing. -- 10/2014: Recurrent AFIB --> DC'ed Sotalol, Initiated Amiodarone --> Improved AFIB [place]. -- 12/31/15: Elevated LFTs --> Decreased Amiodarone [...] chest discomfort --> Presented to ED in [place], [place]. Her evaluation was apparently unremarkable. She [...] would o btain via Dr. Gruber's office. She STATES she hasn't had any tachypalpitations, however she has had an intermit tent sensation of "not feeling right in my chest." It is difficult for her to cl arify her symptoms. She reports dyspnea when supine "for months." She states she is supposed to be w earing oxygen at night, but hasn't been for reasons that aren't exactly clear. She denies any palpitations, lightheadedness, dizziness, near syncope or syncope , PND or orthopnea. FHx, SHx and ROS documented and I have reviewed, with some pertinent features to include: No FHx of premature CAD. She is a Non-Smoker. Most pertinent ROS is included/discussed throughout the note, e.g. HPI and A/P. ASSESSMENT AND PLAN: -- PAFIB:Her device check today shows an AFIB burden of 6.5%-- her AFIB cara en has increased since ~06/2016. Therefore, we will increase her Amiodarone to 20 0 mg daily. She remains on Pradaxa with no bleeding issues. -- Dyspnea when Supine: Almost certainly related to non-compliance with her PM O2. I have recommended she wear her O2 as directed and follow up with her Primar Care Physician for further evaluation. -- Chest Discomfort: Her symptoms are very vague. She is a poor historian. I do not have documentation of her recent evaluation via Dr. Gruber's office. Therefo re, since her symptoms are longstanding and without recent change, she will addr ess them with Dr. Gruber at her upcoming follow up visit. -- Medtronic DDDR Permanent Pacemaker: Her device is functioning well. We have increased the Rate-Responsiveness of her device today. -- Prior Increased LFTs: Her LFTs have been normalized since ~03/2016. We will monitor her LFTs carefully with the increase in her Amiodarone described above. -- NSVT: She has had no recurrences. -- Hypertension: Her blood pressure is under good control. Ms. Nation was educated regarding plan of [...] have scheduled her follow-up with me in 6 month(s) with Ynes Segovia, the EP BAR TACKER SEWING MACHINE. Filed Vitals: 11/18/16 0932 BP: 122/70 Pulse: 73 Height: 1.676 m (5' 6") Weight: 83.734 kg (184 lb 9.6 oz) Body mass index is 29.81 kg/(m^2). Past Medical History Patient Active Problem [...] Near syncope 09/16/2011 09/14/11 hospital admission to [facility] in [place], [place]. Reveal device 952 9 implanted by Allyn Petit MD. Cardiac pacemaker in situ 08/18/2011 09/16/11 Reveal device 9529, Medtronic. Review of Systems Constitution: Positive for chills, diaphoresis and malaise/fatigue. HENT: Positive for ear pain. Eyes: Positive for blurred vision. Cardiovascular: Positive for chest pain, claudication, dyspnea on exertion, irre gular heartbeat, leg swelling, orthopnea and paroxysmal nocturnal dyspnea. Respiratory: Positive for shortness of breath and sleep disturbances due to negrito thing. Endocrine: Negative. Hematologic/Lymphatic: Bruises/bleeds easily. Skin: Positive for dry skin and itching. Musculoskeletal: Positive for arthritis, back pain, joint pain, joint swelling, muscle cramps, myalgias, neck pain and stiffness. Gastrointestinal: Negative. Genitourinary: Negative. Neurological: Negative. Psychiatric/Behavioral: Negative. Allergic/Immunologic: Negative. Physical Exam Constitutional: She is [...] without obvious bruit. Regular rhythm, S1, S2. 2/6 sy stolic murmur noted at the USBs. No heaves, thrills or rubs. Musc/Skeletal-Extremities: With trace-1 + pretibial and pedal peripheral edema with bilateral venous varicosities. With what appears to be full ROM. Right ankl e with dressing from recent procedure for cyst. Device Site: Is in her left infraclavicular region and well-healed. Neuro: Patient is alert and oriented to person, place, and time. Psych: Patient does not appear anxious, she appears appropriate, with normal no n-pressured speech and what appears to be appropriate judgement. Cardiovascular Studies ECG today documents AV paced rhythm at 73 bpm. Full device check performed with reprogramming which I have extensively reviewed . Changes, if done, as discussed below and is detailed in other dictation/note. 93% atrial paced; 98.2% ventricular paced; underlying rhythm is sinus rhythm w ith a AL interval anywhere from 360-420 ms with Wenckebach block at 60 bpm. The re are just over 200 AFIB events, the longest being 13 hours in duration for an AFIB burden of 6.5%. As been increasing in general since June 2016. The keyshawn tricular rate appears to be well-controlled when in AFIB. EGM's of the episodes document clear AFIB. Problems Addressed Today Encounter Diagnoses Name Primary? Paroxysmal atrial fibrillation (HCC) Yes Current Medications (including today's revisions) alprazolam (XANAX) 0.25 mg tablet Take 0.25 mg by mouth twice daily as neede d. amiodarone (CORDARONE) 200 mg tablet Take 1 Tab by mouth daily. amLODIPine (NORVASC) 5 mg tablet Take 5 mg by mouth daily. BUSPIRONE HCL (BUSPAR PO) Take 15 mg by mouth twice daily. Calcium Carbonate-Vitamin D3 (VITAMIN D-3) 180-5,000 mg-unit Tab Take 1 Tab by mouth daily. cyanocobalamin (VITAMIN B-12, RUBRAMIN) [...] tablet Take 100 mg by mouth Daily. meclizine (ANTIVERT) 25 mg tablet Take 25 mg by mouth as Needed. meloxicam(+) (MOBIC) 15 mg tablet Take 15 mg by mouth daily. metoprolol (LOPRESSOR) 25 mg tablet Take 0.5 Tabs by mouth twice daily. NYSTATIN (BULK) MISC Use 200 mg as directed as Needed. [place]-3 Acid Ethyl Esters (LOVAZA) 1 gram cap Take 1 Cap by mouth four times daily. pantoprazole DR (PROTONIX) 40 mg tablet Take 40 mg by mouth twice daily. potassium chloride SR (K-DUR) 20 mEq tablet Take 20 mEq by mouth daily. promethazine (PHENERGAN) 25 mg tablet Take 25 mg by mouth every 6 hours as n eeded for Nausea. sertraline (ZOLOFT) 50 mg tablet Take 50 mg by mouth daily. sucralfate (CARAFATE) 1 gram tablet Take 1 g by mouth at bedtime daily. topiramate (TOPAMAX) 25 mg tablet Take 25 mg by mouth twice daily. traMADol (ULTRAM) 50 mg tablet Take 50 mg by mouth every 6 hours as needed. Documentation recorded by Evie Hawthorne, acting as scribe for Marty Trejo M.D. documented in this encounter Plan of Treatment Order Schedule Name Type Priority Associated Diagnoses Ordered: 11/18/2016 ECG 12-LEAD ECG Routine Paroxysmal atrial fibrillation (HCC) documented as of this encounter Procedures Comments Procedure Name Priority Date/Time Associated Diagnosis ECG/QRS Routine 11/18/2016 9:54 AM CDT documented in this encounter Results * ECG/QRS (11/18/2016 9:54 AM CDT) QRS DURATION 160 OTHER OUTSIDE LAB Performing Organization Address City/State/Zipcode Phone Number OTHER OUTSIDE LAB documented in this encounter Visit Diagnoses Diagnosis Paroxysmal atrial fibrillation (HCC) - Primary Atrial fibrillation documented in this encounter
--- OUTSIDE RECORDS SUMMARY | 2018-12-05 14:28 | XMS REPORT | Encounter Summary ---
Author Author [facility] Organization [facility] Address Unknown Phone Unavailable Care Team Providers Care Bakery Supervisor Name Role Phone Dorian Muse MD Unavailable Dagmar Lopes MD PCP Ernesto Sosa MD [address] Melvin Monterroso MD Unavailable Unavailable Dana Birmingham RN Unavailable Unavailable Severiano Daniel DO Unavailable Encounter Details Care Team Description Date Type Department Katie Lincoln, COAL DELIVERER-C [address] [place], [place] [id number] Cardiac pacemaker in situ (Primary Dx); Paroxysmal atrial fibrillation (HCC) 10/10/2016 Orders Only [facility] [address] [place] [address] Social History Date Tobacco Use Types Packs/Day [...] Order Schedule Name Type Priority Associated Diagnoses 99 Occurrences starting 10/10/2016 until 10/11/2019, 5 completed DEVICE EVALUATION - Device Check Routine Cardiac pacemaker in situ REMOTE PPM Paroxysmal atrial fibrillation (HCC) documented as of this encounter Results * DEVICE EVALUATION - REMOTE PPM (08/31/2018 10:05 AM CDT) [facility] Signature Generator Model REVO MRI RVDR01 OTHER OUTSIDE # LAB Generator [id number] OTHER OUTSIDE Serial # LAB Generator 10/18/2011 OTHER OUTSIDE Implnat Date LAB FÉLIX/EOL WANIGAN CLERK=2.81V OTHER OUTSIDE Indicator LAB Generator Medtronic OTHER OUTSIDE Director Automotive LAB Generator No OTHER OUTSIDE Investigational LAB Wireless No OTHER OUTSIDE Generator LAB Device Type DDD-PM OTHER OUTSIDE LAB Atrial Lead CAPSUREFIX MRI SURESCAN OTHER OUTSIDE Model # 5086-52cm LAB Atrial Lead [id number] OTHER OUTSIDE Serial # LAB Atrial Lead 10/18/2011 OTHER OUTSIDE Implant Date LAB Atrial Lead 10 OTHER OUTSIDE Diaph. LAB Stimulation Atrial Lead Medtronic OTHER OUTSIDE Director Automotive LAB Atrial Lead No OTHER OUTSIDE Investigational LAB Atrial Lead active fixation OTHER OUTSIDE Fixation LAB Atrial Lead right atrial appendage OTHER OUTSIDE Location LAB Atrial Lead Pin IS1 OTHER OUTSIDE Connector LAB Atrial Lead Bipolar OTHER OUTSIDE Polarity LAB RV Lead Model # CAPSUREFIX MRI SURESCAN OTHER OUTSIDE 5086-58cm LAB RV Lead Serial [id number] OTHER OUTSIDE # LAB RV Lead Implant 10/18/2011 OTHER OUTSIDE Date LAB RV Lead Diaph. 10 OTHER OUTSIDE Stimulation LAB RV Lead Medtronic OTHER OUTSIDE Director Automotive LAB RV Lead No OTHER OUTSIDE Investigational [...] By LAB Device [facility] OTHER OUTSIDE [place] [facility] Transmitter Compatible On AntiCoag 10/10/16 OTHER [...] > details Monitored 11 events, 83 sec. [place] is 12.7% compared to 12.5% prior. Pace [...] atrial arrhythmias with Dr. Gruber her primary brusher tender in [facility]. [08/31/2018 11:15:26 AM - JYOTI KUMAR] Please see scanned data sheets for further review. Scheduled Carelink transmission received forDual chamber PPM. Device function appears appropriate. Presenting EGM shows Aflutter with CHIEF DESIGN BRANCH 105bpm, (currently MS).Episode started 8:09am so currently [...] City/State/Zipcode Phone Number OTHER OUTSIDE LAB * DEVICE EVALUATION - REMOTE PPM (03/22/2018 4:10 PM CDT) Generator Model REVO MRI RVDR01 OTHER OUTSIDE # LAB Generator [id number] OTHER OUTSIDE Serial # LAB Generator 10/18/2011 OTHER OUTSIDE Implnat Date LAB FÉLIX/EOL WANIGAN CLERK=2.81V OTHER OUTSIDE Indicator LAB Generator Medtronic OTHER OUTSIDE Director Automotive LAB Generator No OTHER OUTSIDE Investigational LAB Wireless No OTHER OUTSIDE Generator LAB Device Type DDD-PM OTHER OUTSIDE LAB Atrial Lead CAPSUREFIX MRI SURESCAN OTHER OUTSIDE Model # 5086-52cm LAB Atrial Lead [id number] OTHER OUTSIDE Serial # LAB Atrial Lead 10/18/2011 OTHER OUTSIDE Implant Date LAB Atrial Lead 10 OTHER OUTSIDE Diaph. LAB Stimulation Atrial Lead Medtronic OTHER OUTSIDE Director Automotive LAB Atrial Lead No OTHER OUTSIDE Investigational LAB Atrial Lead active fixation OTHER OUTSIDE Fixation LAB Atrial Lead right atrial appendage OTHER OUTSIDE Location LAB Atrial Lead Pin IS1 OTHER OUTSIDE Connector LAB Atrial Lead Bipolar OTHER OUTSIDE Polarity LAB RV Lead Model # CAPSUREFIX MRI SURESCAN OTHER OUTSIDE 5086-58cm LAB RV Lead Serial [id number] OTHER OUTSIDE # LAB RV Lead Implant 10/18/2011 OTHER OUTSIDE Date LAB RV Lead Diaph. 10 OTHER OUTSIDE Stimulation LAB RV Lead Medtronic OTHER OUTSIDE Director Automotive LAB RV Lead No OTHER OUTSIDE Investigational [...] By LAB Device [facility] OTHER OUTSIDE [place] [facility] Transmitter Compatible On AntiCoag 10/10/16 OTHER [...] appears appropriate. Presenting EGM shows AFib/flutter with CHIEF DESIGN BRANCH 83bpm. Battery:2.92v (FÉLIX is 2.81) Events noted since 05/18/17: Atrial:1,061 treated AT/AF (50% successful); 277 monitored.Total AT/AF burden 11.9%. Longest 5 days.Roslyn graph shows definite increase since last OV check in April. EGMs confirm AFib flutter.Last several episodes 03/19 and 03/20. V rates controlled,>100bpm ~5% Ventricular:1 VT labeled event already reported on 07/29/17 Next follow up appt 05/04/[address] Dhaliwal. Next remote scheduled for 3 mo. Results routed to Dr. Joseph for signature and review. Dr. Dhaliwal is out. _ Performing Organization Address City/State/Zipcode Phone Number OTHER OUTSIDE LAB * DEVICE EVALUATION - REMOTE PPM (11/28/2017 2:20 PM CDT) Generator Model REVO MRI RVDR01 OTHER OUTSIDE # LAB Generator [id number] OTHER OUTSIDE Serial # LAB Generator 10/18/2011 OTHER OUTSIDE Implnat Date LAB FÉLIX/EOL WANIGAN CLERK=2.81V OTHER OUTSIDE Indicator LAB Generator Medtronic OTHER OUTSIDE Director Automotive LAB Generator No OTHER OUTSIDE Investigational LAB Wireless No OTHER OUTSIDE Generator LAB Device Type DDD-PM OTHER OUTSIDE LAB Atrial Lead CAPSUREFIX MRI SURESCAN OTHER OUTSIDE Model # 5086-52cm LAB Atrial Lead [id number] OTHER OUTSIDE Serial # LAB Atrial Lead 10/18/2011 OTHER OUTSIDE Implant Date LAB Atrial Lead 10 OTHER OUTSIDE Diaph. LAB Stimulation Atrial Lead Medtronic OTHER OUTSIDE Director Automotive LAB Atrial Lead No OTHER OUTSIDE Investigational LAB Atrial Lead active fixation OTHER OUTSIDE Fixation LAB Atrial Lead right atrial appendage OTHER OUTSIDE Location LAB Atrial Lead Pin IS1 OTHER OUTSIDE Connector LAB Atrial Lead Bipolar OTHER OUTSIDE Polarity LAB RV Lead Model # CAPSUREFIX MRI SURESCAN OTHER OUTSIDE 5086-58cm LAB RV Lead Serial [id number] OTHER OUTSIDE # LAB RV Lead Implant 10/18/2011 OTHER OUTSIDE Date LAB RV Lead Diaph. 10 OTHER OUTSIDE Stimulation LAB RV Lead Medtronic OTHER OUTSIDE Director Automotive LAB RV Lead No OTHER OUTSIDE Investigational [...] By LAB Device [facility] OTHER OUTSIDE [place] [facility] Transmitter Compatible On AntiCoag 10/10/16 OTHER [...] Device function appears appropriate. Presenting EGM shows Ap-Radiological Technician 95bpm. Battery longevity 2.93v (FÉLIX is 2.31v) Events noted since 08/18/17: Atrial:175 treated AT/AF, 45.7% successful; 37 monitored.AT/AF burden 8.6%. Longest 11hr on 10/11/17.Last several on 11/15/17 and 1 on 11/16/17. EGMs confirm AFib/flutter.V rates >100bpm ~5-7%. Ventricular:none. Next follow up appt pending Nov with Dr. Dhaliwal. Next remote scheduled for 3 mo. Results routed to Dr. Dhaliwal for signature and review. _ Performing Organization Address City/State/Zipcode Phone Number OTHER OUTSIDE LAB * DEVICE EVALUATION - REMOTE PPM (03/01/2017 11:32 AM CDT) Generator OTHER OUTSIDE Director Automotive LAB Other Generator Model REVO MRI RVDR01 OTHER OUTSIDE # LAB Generator [id number] OTHER OUTSIDE Serial # LAB Generator 10/18/2011 [...] Research OTHER OUTSIDE Comments 2 LAB FÉLIX/EOL WANIGAN CLERK=2.81V OTHER OUTSIDE Indicator LAB Generator Medtronic OTHER OUTSIDE Director Automotive LAB Generator No OTHER OUTSIDE Investigational LAB Wireless No OTHER OUTSIDE Generator LAB Device Type DDD-PM OTHER OUTSIDE LAB Other Implant OTHER OUTSIDE Info LAB Atrial Lead OTHER OUTSIDE Director Automotive LAB Other Atrial Lead CAPSUREFIX MRI SURESCAN OTHER OUTSIDE Model # 5086-52cm LAB Atrial Lead [id number] OTHER OUTSIDE Serial # LAB Atrial Lead 10/18/2011 OTHER OUTSIDE Implant Date LAB Atrial Lead OTHER OUTSIDE Location Other LAB Atrial Lead OTHER OUTSIDE Polarity Other LAB Atrial Lead 10 OTHER OUTSIDE Diaph. LAB Stimulation Atrial Lead Medtronic OTHER OUTSIDE Director Automotive LAB Atrial Lead No OTHER OUTSIDE Investigational LAB Atrial Lead active fixation OTHER OUTSIDE Fixation LAB Atrial Lead right atrial appendage OTHER OUTSIDE Location LAB Atrial Lead Pin IS1 OTHER OUTSIDE Connector LAB Atrial Lead Bipolar OTHER OUTSIDE Polarity LAB RV Lead OTHER OUTSIDE Director Automotive LAB Other RV Lead Model # CAPSUREFIX MRI SURESCAN OTHER OUTSIDE 5086-58cm LAB RV Lead Serial [id number] OTHER OUTSIDE # LAB RV Lead Implant 10/18/2011 OTHER OUTSIDE Date LAB RV Lead OTHER OUTSIDE Location Other LAB RV Lead Diaph. 10 OTHER OUTSIDE Stimulation LAB RV Lead Medtronic OTHER OUTSIDE Director Automotive LAB RV Lead No OTHER OUTSIDE Investigational LAB RV Lead active fixation OTHER OUTSIDE Fixation LAB RV Lead RV low septum OTHER OUTSIDE Location LAB RV Lead Pin IS1 OTHER OUTSIDE Connector ICD LAB RV Lead Coil OTHER OUTSIDE LAB LV Lead OTHER OUTSIDE Director Automotive LAB Other LV Lead Model # OTHER OUTSIDE LAB LV Lead Serial OTHER OUTSIDE # LAB LV Lead Implant OTHER OUTSIDE Date LAB LV Lead OTHER OUTSIDE Location Other LAB LV Lead OTHER OUTSIDE Polarity Other LAB LV Lead OTHER OUTSIDE Configuration LAB Other LV Lead OTHER OUTSIDE Director Automotive LAB LV Lead OTHER OUTSIDE Investigational LAB [...] remote LAB transmission AT/AF Daily OTHER OUTSIDE [place] Hours LAB Average Vent OTHER OUTSIDE Rate during LAB AT/AF #BPM Average Vent OTHER OUTSIDE Rate During LAB AT/AF #Hours Remote Yes OTHER OUTSIDE Monitoring? LAB Daily [place] OTHER OUTSIDE Threshld Alert? LAB Average OTHER OUTSIDE Venticular Rate LAB AT/AF On/Off VF OTHER OUTSIDE Detection/Thera LAB py Off EP Device Dr. Dhaliwal OTHER OUTSIDE Followed by LAB Name EP Device MAC OTHER OUTSIDE Followed By LAB Device OTHER OUTSIDE [place] [facility] Transmitter Device [facility] OTHER OUTSIDE [place] [facility] Transmitter Compatible On AntiCoag 10/10/16 OTHER [...] City/State/Zipcode Phone Number OTHER OUTSIDE LAB * DEVICE EVALUATION - REMOTE PPM (10/10/2016 1:19 PM CDT) Generator OTHER OUTSIDE Director Automotive LAB Other Generator Model REVO MRI RVDR01 OTHER OUTSIDE # LAB Generator [id number] OTHER OUTSIDE Serial # LAB Generator 10/18/2011 [...] Research OTHER OUTSIDE Comments 2 LAB FÉLIX/EOL WANIGAN CLERK=2.81V OTHER OUTSIDE Indicator LAB Generator Medtronic OTHER OUTSIDE Director Automotive LAB Generator No OTHER OUTSIDE Investigational LAB Wireless No OTHER OUTSIDE Generator LAB Device Type DDD-PM OTHER OUTSIDE LAB Other Implant OTHER OUTSIDE Info LAB Atrial Lead OTHER OUTSIDE Director Automotive LAB Other Atrial Lead CAPSUREFIX MRI SURESCAN OTHER OUTSIDE Model # 5086-52cm LAB Atrial Lead [id number] OTHER OUTSIDE Serial # LAB Atrial Lead 10/18/2011 OTHER OUTSIDE Implant Date LAB Atrial Lead OTHER OUTSIDE Location Other LAB Atrial Lead OTHER OUTSIDE Polarity Other LAB Atrial Lead 10 OTHER OUTSIDE Diaph. LAB Stimulation Atrial Lead Medtronic OTHER OUTSIDE Director Automotive LAB Atrial Lead No OTHER OUTSIDE Investigational LAB Atrial Lead active fixation OTHER OUTSIDE Fixation LAB Atrial Lead right atrial appendage OTHER OUTSIDE Location LAB Atrial Lead Pin IS1 OTHER OUTSIDE Connector LAB Atrial Lead Bipolar OTHER OUTSIDE Polarity LAB RV Lead OTHER OUTSIDE Director Automotive LAB Other RV Lead Model # CAPSUREFIX MRI SURESCAN OTHER OUTSIDE 5086-58cm LAB RV Lead Serial [id number] OTHER OUTSIDE # LAB RV Lead Implant 10/18/2011 OTHER OUTSIDE Date LAB RV Lead OTHER OUTSIDE Location Other LAB RV Lead Diaph. 10 OTHER OUTSIDE Stimulation LAB RV Lead Medtronic OTHER OUTSIDE Director Automotive LAB RV Lead No OTHER OUTSIDE Investigational LAB RV Lead active fixation OTHER OUTSIDE Fixation LAB RV Lead RV low septum OTHER OUTSIDE Location LAB RV Lead Pin IS1 OTHER OUTSIDE Connector ICD LAB RV Lead Coil OTHER OUTSIDE LAB LV Lead OTHER OUTSIDE Director Automotive LAB Other LV Lead Model # OTHER OUTSIDE LAB LV Lead Serial OTHER OUTSIDE # LAB LV Lead Implant OTHER OUTSIDE Date LAB LV Lead OTHER OUTSIDE Location Other LAB LV Lead OTHER OUTSIDE Polarity Other LAB LV Lead OTHER OUTSIDE Configuration LAB Other LV Lead OTHER OUTSIDE Director Automotive LAB LV Lead OTHER OUTSIDE Investigational LAB LV Lead OTHER OUTSIDE Fixation LAB LV Lead OTHER OUTSIDE Location LAB LV Lead Pin OTHER OUTSIDE Connector LAB LV Lead OTHER OUTSIDE Polarity LAB LV Lead OTHER OUTSIDE Configuration LAB Device Mode AAIR/DDDR OTHER OUTSIDE LAB Lower Rate 70 OTHER [...] OTHER OUTSIDE Dependant LAB Date of Last 12/31/15 OTHER OUTSIDE Programming LAB Next Jun 2016 OTHER OUTSIDE Programming LAB Check Due Date of Last 12/31/15 OTHER OUTSIDE Interrogation LAB Date of Last OTHER OUTSIDE ICM Evaluation LAB Next ICM Check OTHER OUTSIDE Due LAB HF Patient No OTHER OUTSIDE LAB Date of Last 04/01/16 OTHER OUTSIDE Remote Check LAB Next Remote 06/2016 OTHER OUTSIDE Check Due LAB Enrollment Date OTHER OUTSIDE LAB Date of OTHER OUTSIDE baseline remote LAB transmission AT/AF Daily OTHER OUTSIDE [place] Hours LAB Average Vent OTHER OUTSIDE Rate during LAB AT/AF #BPM Average Vent OTHER OUTSIDE Rate During LAB AT/AF #Hours Remote Yes OTHER OUTSIDE Monitoring? LAB Daily [place] OTHER OUTSIDE Threshld Alert? LAB Average OTHER OUTSIDE Venticular Rate LAB AT/AF On/Off VF OTHER OUTSIDE Detection/Thera LAB py Off EP Device Dr. Dhaliwal OTHER OUTSIDE Followed by LAB Name EP Device MAC OTHER OUTSIDE Followed By LAB Device OTHER OUTSIDE [place] [facility] Transmitter Device [facility] OTHER OUTSIDE [place] [facility] Transmitter Compatible On AntiCoag 10/10/16 OTHER [...] Narrative Performed At OTHER OUTSIDE LAB Current Remote Monitoring Period 10/10/16 to 01/09/17 [10/10/2016 1:22:38 PM - KATIE LINCOLN] Device function: Presenting rhythm Ap Radiological Technician at 88 bpm Battery voltage: 2.96V Lead impedances, sensing, and thresholds reviewed. Pacing: -VS <0.1%, -CHIEF DESIGN BRANCH 7.5%, AP-VS 1.4%, AP-CHIEF DESIGN BRANCH 91.1% (since 07/11/16) Device function appears stable. Events noted: Atrial: 134 AT/AF longest 13 hours, average 1.7 hr/day Total atrial burden 7.1%Patient is on Pradaxa Ventricular: 0 VHR episodes. Notes/Summary: Next follow up in November with Dr. Dhaliwal Click hyperlink below for attached report for further details Results routed to physician for review and signature. CJ Performing Organization Address City/State/Zipcode Phone Number OTHER OUTSIDE LAB documented in this encounter Visit Diagnoses Diagnosis Cardiac pacemaker in situ - Primary Paroxysmal atrial fibrillation (HCC) Atrial fibrillation documented in this encounter
--- OUTSIDE RECORDS SUMMARY | 2018-12-05 14:29 | XMS REPORT | Encounter Summary ---
Author Author [facility] Organization [facility] Address Unknown Phone Unavailable Care Team Providers Care Special Investigation Unit Investigator Name Role Phone Dorian Muse MD Unavailable Dagmar Lopes MD PCP Ernesto Sosa MD [address] Melvin Monterroso MD Unavailable Unavailable Dana Birmingham RN Unavailable Unavailable Severiano Daniel DO Unavailable Encounter Details Care Team Description Date Type Department Ernesto Sosa MD [address] [facility] [place] [address] [phone] 10/10/2016 Hospital Cardiovascular Medicine Encounter Remote Device Check [phone] Social History Date Tobacco Use Types Packs/Day [...] 15 mg by 0 mouth twice daily. dabigatran (PRADAXA) 150 Take 150 mg 0 [...] 0 gram tablet mouth at bedtime daily. 12/31/2015 11/18/2016 amiodarone (CORDARONE) Take 0.5 Tabs 45 Tab 3 200 mg tablet by mouth daily. 05/04/2018 amLODIPine (NORVASC) 5 mg Take 2.5 mg 0 tablet by mouth daily. 05/18/2017 Calcium Carbonate-Vitamin Take 1 Tab by 0 D3 (VITAMIN D-3) mouth daily. 180-5,000 mg-unit Tab 05/04/2018 Erythromycin 250 mg cpDR Take 1 Cap by 0 mouth three times daily before meals. 11/18/2016 levothyroxine (SYNTHROID) Take 150 mcg 0 150 mcg tablet by mouth daily. 05/18/2017 meclizine (ANTIVERT) 25 Take 25 mg by 0 mg tablet mouth as Needed. 07/08/2013 05/18/2017 metoprolol (LOPRESSOR) 25 Take 0.5 Tabs 180 Tab 3 mg tablet by mouth twice daily. 05/18/2017 NYSTATIN (BULK) MISC Use 200 mg as 0 directed as Needed. 04/11/2012 05/04/2018 Randall-3 Acid Ethyl Esters Take 1 Cap by [...] Date/Time Associated Diagnosis DEVICE EVALUATION - Routine 10/10/2016 Cardiac pacemaker in situ REMOTE PPM 1:19 PM CDT Paroxysmal atrial fibrillation (HCC) documented in this encounter Results * DEVICE EVALUATION - REMOTE PPM (10/10/2016 1:19 PM CDT) Generator OTHER OUTSIDE Glass Finisher LAB Other Generator Model REVO MRI RVDR01 OTHER OUTSIDE # LAB Generator [id number] OTHER OUTSIDE Serial # LAB Generator 10/18/2011 [...] Research OTHER OUTSIDE Comments 2 LAB FÉLIX/EOL LICENSED PSYCHIATRIC TECHNICIAN=2.81V OTHER OUTSIDE Indicator LAB Generator Medtronic OTHER OUTSIDE Glass Fin[facility] LAB Generator No OTHER OUTSIDE Investigational LAB Wireless No OTHER OUTSIDE Generator LAB Device Type DDD-PM OTHER OUTSIDE LAB Other Implant OTHER OUTSIDE Info LAB Atrial Lead OTHER OUTSIDE Glass Finisher LAB Other Atrial Lead CAPSUREFIX MRI SURESCAN OTHER OUTSIDE Model # 5086-52cm LAB Atrial Lead [id number] OTHER OUTSIDE Serial # LAB Atrial Lead 10/18/2011 OTHER OUTSIDE Implant Date LAB Atrial Lead OTHER OUTSIDE Location Other LAB Atrial Lead OTHER OUTSIDE Polarity Other LAB Atrial Lead 10 OTHER OUTSIDE Diaph. LAB Stimulation Atrial Lead Medtronic OTHER OUTSIDE Glass Finisher LAB Atrial Lead No OTHER OUTSIDE Investigational LAB Atrial Lead active fixation OTHER OUTSIDE Fixation LAB Atrial Lead right atrial appendage OTHER OUTSIDE Location LAB Atrial Lead Pin IS1 OTHER OUTSIDE Connector LAB Atrial Lead Bipolar OTHER OUTSIDE Polarity LAB RV Lead OTHER OUTSIDE Glass Finisher LAB Other RV Lead Model # CAPSUREFIX MRI SURESCAN OTHER OUTSIDE 5086-58cm LAB RV Lead Serial [id number] OTHER OUTSIDE # LAB RV Lead Implant 10/18/2011 OTHER OUTSIDE Date LAB RV Lead OTHER OUTSIDE Location Other LAB RV Lead Diaph. 10 OTHER OUTSIDE Stimulation LAB RV Lead Medtronic OTHER OUTSIDE Glass Finisher LAB RV Lead No OTHER OUTSIDE Investigational LAB RV Lead active fixation OTHER OUTSIDE Fixation LAB RV Lead RV low septum OTHER OUTSIDE Location LAB RV Lead Pin IS1 OTHER OUTSIDE Connector ICD LAB RV Lead Coil OTHER OUTSIDE LAB LV Lead OTHER OUTSIDE Glass Finisher LAB Other LV Lead Model # OTHER OUTSIDE LAB LV Lead Serial OTHER OUTSIDE # LAB LV Lead Implant OTHER OUTSIDE Date LAB LV Lead OTHER OUTSIDE Location Other LAB LV Lead OTHER OUTSIDE Polarity Other LAB LV Lead OTHER OUTSIDE Configuration LAB Other LV Lead OTHER OUTSIDE Glass Finisher LAB LV Lead OTHER OUTSIDE Investigational LAB [...] remote LAB transmission AT/AF Daily OTHER OUTSIDE [place] Hours LAB Average Vent OTHER OUTSIDE Rate during LAB AT/AF #BPM Average Vent OTHER OUTSIDE Rate During LAB AT/AF #Hours Remote Yes OTHER OUTSIDE Monitoring? LAB Daily [place] OTHER OUTSIDE Threshld Alert? LAB Average OTHER OUTSIDE Venticular Rate LAB AT/AF On/Off VF OTHER OUTSIDE Detection/Thera LAB py Off EP Device Dr. Trejo OTHER OUTSIDE Followed by LAB Name EP Device MAC OTHER OUTSIDE Followed By LAB Device OTHER OUTSIDE [place] [facility] Transmitter Device [facility] OTHER OUTSIDE [place] [facility] Transmitter Compatible On AntiCoag 10/10/16 OTHER [...] KATIE LINCOLN] Device function: Presenting rhythm Ap Director Of Cloud Services at 88 bpm Battery voltage: 2.96V Lead impedances, sensing, and thresholds reviewed. Pacing: -VS <0.1%, -VISUAL DEVELOPER 7.5%, AP-VS 1.4%, AP-VISUAL DEVELOPER 91.1% (since 07/11/16) Device function appears stable. Events noted: Atrial: 134 AT/AF longest 13 hours, average 1.7 hr/day Total atrial burden 7.1%Patient is on Pradaxa Ventricular: 0 VHR episodes. Notes/Summary: Next follow up in November with Dr. Trejo Click hyperlink below for attached report for further details Results routed to physician for review and signature. CJ Performing Organization Address City/State/Zipcode Phone Number OTHER OUTSIDE LAB documented in this encounter Visit Diagnoses Diagnosis Cardiac pacemaker in situ Paroxysmal atrial fibrillation (HCC) Atrial fibrillation documented in this encounter
--- OUTSIDE RECORDS SUMMARY | 2018-12-05 14:30 | XMS REPORT | Encounter Summary ---
Author Author [facility] Organization [facility] Address Unknown Phone Unavailable Care Team Providers Care Arabic Translator Name Role Phone Dorian Muse MD Unavailable Dagmar Lopes MD PCP Ernesto Sosa MD [address] Melvin Monterroso MD Unavailable Unavailable Dana Birmingham RN Unavailable Unavailable Severiano Daniel DO Unavailable Reason for Visit * Reason Comments Patient Questions About Implanted Device Encounter Details Care Team Description Date Type Department Belia Valero RN Patient Questions About Implanted Device 06/15/2016 Telephone [facility] [address] [place] [address] Social History Date Tobacco Use [...] encounter Miscellaneous Notes * Telephone Encounter - Belia Valero RN - 06/15/2016 10:45 AM CRYSTAL FLAT GRINDER Pt contacted office inquiring information about her device including brand and s erial number. Pt states she has an MRI scheduled in [place], [place] and she was instructed to pr ovide this information. I provided pt with information and instructed her to also contact her cardiologi st in [place] as pt states that she follow there now. Pt verbalized understanding. TAL FLAT GRINDER * Telephone Encounter - Belia Valero, RN - 06/15/2016 10:40 AM CRYSTAL FLAT GRINDER ----- Message from Shalini Tinajero sent at 06/15/2016 10:06 AM CRYSTAL FLAT GRINDER ----- Regarding: VM-PM info Patient needs info on her PPM call back is [phone] TAL FLAT GRINDER documented in this encounter Plan of Treatment Not on filedocumented as of this encounter Visit Diagnoses Not on filedocumented in this encounter
--- OUTSIDE RECORDS SUMMARY | 2018-12-05 14:30 | XMS REPORT | Encounter Summary ---
Author Author [facility] Organization [facility] Address Unknown Phone Unavailable Care Team Providers Care Meat Scrubber Name Role Phone Dorian Muse MD Unavailable Dagmar Lopes MD PCP Ernesto Sosa MD [address] MD Unavailable Unavailable Dana Birmingham RN Unavailable Unavailable Severiano Daniel DO Unavailable Reason for Visit * Reason Comments Amiodarone Monitoring 6 month follow up Encounter Details Care Team Description Date Type Department Leeanne Burnette RN Amiodarone Monitoring (6 month follow up) 09/02/2016 Documentation The [facility] [address] [place] [address] Social History Date Tobacco Use Types Packs/Day Years Used Never Smoker Smokeless Tobacco: Never Used Drinks/Week oz/Week Comments Alcohol Use No Sex Assigned at Date Recorded Not on file Industry Job Start Date Occupation Not on file Not on file Not on file Travel End Travel History Travel Start No recent travel history available. documented as of this encounter Progress Notes * Mena Dozier RN - 09/16/2016 4:17 PM CDT Chest X-Ray received. Impression: COPD, small hiatial hernia. Sent to be scanned into chart. * Aria Alcantar RN - 09/07/2016 11:29 AM CDT Amiodarone Monitoring status as of 09/07/2016: Amiodarone monitoring complete. Next amiodarone review is due in 90 days. Most recent lab results Lab Results Component Value Date/Time AST (SGOT) 24 06/22/2016 ALT (SGPT) 30 06/22/2016 TSH 1.41 09/07/2016 T4-FREE 0.99 09/07/2016 Procedures Last chest X-Ray: ordered, pending Last PFT: Last eye exam: * Leeanne Burnette RN - 09/02/2016 8:19 AM CDT Approved Lab requisition/orders entered and mailed/given to the patient as they are due for Amiodarone surveillance lab. documented in this encounter Plan of Treatment Order Schedule Name Type Priority Associated Diagnoses Expected: 09/02/2016 (Approximate), Expires: 09/02/2017 THYROID STIMULATING Lab Routine alf current use of HORMONE-TSH amiodarone Expected: 09/02/2016 (Approximate), Expires: 09/02/2017 FREE T4 (FREE THYROXINE) Lab Routine alf current use of ONLY amiodarone documented as of this encounter Procedures Comments Procedure Name Priority Date/Time Associated Diagnosis CBC Routine 09/07/2016 THYROID STIMULATING Routine 09/07/2016 HORMONE-TSH FREE T4 (FREE THYROXINE) Routine 09/07/2016 ONLY documented in this encounter Results * CBC (09/07/2016) Pathologist [facility] White Blood 6.4 OTHER OUTSIDE Cells LAB RBC 4.7 OTHER OUTSIDE LAB Hemoglobin 14.1 OTHER OUTSIDE LAB Hematocrit 43.1 OTHER OUTSIDE LAB MCV 91.7 OTHER OUTSIDE LAB MCH 30 OTHER OUTSIDE LAB MCHC 32.7 OTHER OUTSIDE LAB Platelet Count 198 OTHER OUTSIDE LAB MPV OTHER OUTSIDE LAB RDW 14.5 OTHER OUTSIDE LAB Specimen Blood - Blood Narrative Performed At OTHER OUTSIDE LAB CBC from PCP office entered for historical review Performing Organization Address City/State/Zipcode Phone Number OTHER OUTSIDE LAB * FREE T4 (FREE THYROXINE) ONLY (09/07/2016) T4-Free 0.99 OTHER OUTSIDE LAB Specimen Blood - Blood Narrative Performed At Performing Organization Address City/State/Zipcode Phone Number OTHER OUTSIDE LAB * THYROID STIMULATING HORMONE-TSH (09/07/2016) TSH 1.41 OTHER OUTSIDE LAB Specimen Blood - Blood Narrative Performed At Performing Organization Address City/State/Zipcode Phone Number OTHER OUTSIDE LAB documented in this encounter Visit Diagnoses Diagnosis ferry terminal 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
--- OUTSIDE RECORDS SUMMARY | 2018-12-05 14:30 | XMS REPORT | Encounter Summary ---
Author Author [facility] Organization [facility] Address Unknown Phone Unavailable Care Team Providers Care Insulation Worker Interior Surface Name Role Phone Dorian Muse MD Unavailable Dagmar Lopes MD PCP Ernesto Sosa MD [address] MD Unavailable Unavailable Dana Birmingham RN Unavailable Unavailable Severiano Daniel DO Unavailable Encounter Details Care Team Description Date Type Department Marty Trejo MD [address] [facility] [address] [place] [address] [phone] 07/11/2016 [facility] Cardiovascular Medicine Encounter Remote Device Check [phone] Social History Date Tobacco Use Types Packs/Day [...] as 0 directed as Needed. 04/11/2012 05/04/2018 [place]-3 Acid Ethyl Esters Take 1 Cap by [...] Date/Time Associated Diagnosis DEVICE EVALUATION - Routine 07/19/2016 Paroxysmal atrial REMOTE PPM 10:31 AM ENVELOPE FOLD OPERATOR fibrillation (HCC) documented in this encounter Results * DEVICE EVALUATION - REMOTE PPM (07/19/2016 10:31 AM ENVELOPE FOLD OPERATOR) Generator OTHER OUTSIDE Male Infertility Specialist LAB Other Generator Model REVO MRI [id number] OTHER OUTSIDE # LAB Generator [id number] OTHER OUTSIDE Serial # LAB Generator 10/18/2011 [...] Research OTHER OUTSIDE Comments 2 LAB FÉLIX/EOL PERFORMANCE TEST CONSULTANT=2.81V OTHER OUTSIDE Indicator LAB Generator Medtronic OTHER OUTSIDE Male Infertility Specialist LAB Generator No OTHER OUTSIDE Investigational LAB Wireless No OTHER OUTSIDE Generator LAB Device Type DDD-PM OTHER OUTSIDE LAB Other Implant OTHER OUTSIDE Info LAB Atrial Lead OTHER OUTSIDE Male Infertility Specialist LAB Other Atrial Lead CAPSUREFIX MRI SURESCAN OTHER OUTSIDE Model # 5086-52cm LAB Atrial Lead [id number] OTHER OUTSIDE Serial # LAB Atrial Lead 10/18/2011 OTHER OUTSIDE Implant Date LAB Atrial Lead OTHER OUTSIDE Location Other LAB Atrial Lead OTHER OUTSIDE Polarity Other LAB Atrial Lead 10 OTHER OUTSIDE Diaph. LAB Stimulation Atrial Lead Medtronic OTHER OUTSIDE Male Infertility Specialist LAB Atrial Lead No OTHER OUTSIDE Investigational LAB Atrial Lead active fixation OTHER OUTSIDE Fixation LAB Atrial Lead right atrial appendage OTHER OUTSIDE Location LAB Atrial Lead Pin IS1 OTHER OUTSIDE Connector LAB Atrial Lead Bipolar OTHER OUTSIDE Polarity LAB RV Lead OTHER OUTSIDE Male Infertility Specialist LAB Other RV Lead Model # CAPSUREFIX MRI SURESCAN OTHER OUTSIDE 5086-58cm LAB RV Lead Serial [id number] OTHER OUTSIDE # LAB RV Lead Implant 10/18/2011 OTHER OUTSIDE Date LAB RV Lead OTHER OUTSIDE Location Other LAB RV Lead Diaph. 10 OTHER OUTSIDE Stimulation LAB RV Lead Medtronic OTHER OUTSIDE Male Infertility Specialist LAB RV Lead No OTHER OUTSIDE Investigational LAB RV Lead active fixation OTHER OUTSIDE Fixation LAB RV Lead RV low septum OTHER OUTSIDE Location LAB RV Lead Pin IS1 OTHER OUTSIDE Connector ICD LAB RV Lead Coil OTHER OUTSIDE LAB LV Lead OTHER OUTSIDE Male Infertility Specialist LAB Other LV Lead Model # OTHER OUTSIDE LAB LV Lead Serial OTHER OUTSIDE # LAB LV Lead Implant OTHER OUTSIDE Date LAB LV Lead OTHER OUTSIDE Location Other LAB LV Lead OTHER OUTSIDE Polarity Other LAB LV Lead OTHER OUTSIDE Configuration LAB Other LV Lead OTHER OUTSIDE Male Infertility Specialist LAB LV Lead OTHER OUTSIDE Investigational LAB [...] remote LAB transmission AT/AF Daily OTHER OUTSIDE [place] Hours LAB Average Vent OTHER OUTSIDE Rate during LAB AT/AF #BPM Average Vent OTHER OUTSIDE Rate During LAB AT/AF #Hours Remote Yes OTHER OUTSIDE Monitoring? LAB Daily [place] OTHER OUTSIDE Th[place] Alert? LAB Average OTHER OUTSIDE Venticular Rate LAB AT/AF On/Off VF OTHER OUTSIDE Detection/Thera LAB py Off EP Device Dr. Trejo OTHER OUTSIDE Followed by LAB Name EP Device MAC OTHER OUTSIDE Followed By LAB Device OTHER OUTSIDE [place] LAB Transmitter Device [facility] OTHER OUTSIDE [place] [facility] Transmitter Compatible Specimen Narrative Performed At OTHER OUTSIDE LAB Current Monitoring Period: 07/11/16 through 10/08/16 [07/19/2016 [...] 11/18/16 with MPE at the OP office. Performing Organization Address City/State/Zipcode Phone Number OTHER OUTSIDE LAB documented in this encounter Visit Diagnoses Diagnosis Paroxysmal atrial fibrillation (HCC) Atrial fibrillation documented in this encounter
--- OUTSIDE RECORDS SUMMARY | 2018-12-05 14:30 | XMS REPORT | Encounter Summary ---
Author Author [facility] Organization [facility] Address Unknown Phone Unavailable Care Team Providers Care Film Sorter Name Role Phone Dorian Muse MD Unavailable Dagmar Lopes MD PCP Ernesto Sosa MD [address] MD Unavailable Unavailable Dana Birmingham RN Unavailable Unavailable Severiano Daniel DO Unavailable Reason for Visit * Reason Comments Medication Question Having surgery Encounter Details Care Team Description Date Type Department Annie Marie LPN Medication Question (Having surgery) 07/25/2016 Telephone The [facility] [address] [id number] Social History Date Tobacco Use Types Packs/Day [...] encounter Miscellaneous Notes * Telephone Encounter - Aria Alcantar RN - 07/25/2016 8:31 AM INSURANCE SALES MANAGER Followed up with Nathaly, daughter. She is requesting how long to hold Pradaxa for patient's upcoming surgery. She is having fatty tumors removed on her feet at the end of the month. Followed up with Dr. Bravo's Office. (p) [phone] LM requesting the following information: 1.) How long is Dr. Bravo requesting to hold Pradaxa? 2.) Is Cardiac Clearance needed? Will review with MPE once we hear back from Dr. Bravo's office. Pt is on Pradaxa for PAF. Noted AF burden per remote in 06/2016=10.7% Chadsvasc=4 (age, gender, HTN) RANCE SALES MANAGER * Telephone Encounter - Annie Marie LPN - 07/25/2016 8:24 AM INSURANCE SALES MANAGER VM from [facility] on triage line at 6:20pm on Monday. Said that Faiza is having surgery. Have questions about holding Pradaxa and Amiodarone. Call Nathaly at # [phone]. RANCE SALES MANAGER documented in this encounter Plan of Treatment Not on filedocumented as of this encounter Visit Diagnoses Not on filedocumented in this encounter
--- OUTSIDE RECORDS SUMMARY | 2018-12-05 14:30 | XMS REPORT | Encounter Summary ---
Author Author [facility] Organization [facility] Address Unknown Phone Unavailable Care Team Providers Care Break Out Man Name Role Phone Dorian Muse MD Unavailable Dagmar Lopes MD PCP Ernesto Sosa MD [address] MD Unavailable Unavailable Dana Birmingham RN Unavailable Unavailable Severiano Daniel DO Unavailable Reason for Visit * Reason Comments Labs Only CMP,Lipid Encounter Details Care Team Description Date Type Department Shalini Blake Labs Only (CMP,Lipid) 06/23/2016 Documentation The [facility] [address] [place] [address] Social History Date Tobacco Use [...] Comments Procedure Name Priority Date/Time Associated Diagnosis LIVER FUNCTION PANEL Routine 06/22/2016 LIPID PROFILE Routine 06/22/2015 documented in this encounter Results * LIVER FUNCTION PANEL (06/22/2016) Total Bilirubin 1.1 OTHER OUTSIDE LAB Bilirubin, 0.2 OTHER OUTSIDE Direct LAB Albumin 4.2 OTHER OUTSIDE LAB Alk Phosphatase 54 OTHER OUTSIDE LAB AST (SGOT) 24 OTHER OUTSIDE LAB ALT (SGPT) 30 5 - 26 OTHER OUTSIDE LAB Total Protein 7.0 OTHER OUTSIDE LAB Specimen Blood - Blood Narrative Performed At Performing Organization Address City/State/Zipcode Phone Number OTHER OUTSIDE LAB * LIPID PROFILE (06/22/2015) Cholesterol 196 OTHER OUTSIDE LAB Triglycerides 154 OTHER OUTSIDE LAB HDL 63.0 OTHER OUTSIDE LAB LDL 102 OTHER OUTSIDE LAB VLDL OTHER OUTSIDE LAB Non HDL OTHER OUTSIDE Cholesterol LAB Cholesterol/HDL 3.1 OTHER OUTSIDE Ratio LAB Specimen Blood - Blood Performing Organization Address City/State/Zipcode Phone Number OTHER OUTSIDE LAB documented in this encounter Visit Diagnoses Not on filedocumented in this encounter
--- OUTSIDE RECORDS SUMMARY | 2018-12-05 14:30 | XMS REPORT | Encounter Summary ---
Author Author [facility] Organization [facility] Address Unknown Phone Unavailable Care Team Providers Care Dermatopathologist Name Role Phone Dorian Muse MD Unavailable Dagmar Lopes MD PCP Ernesto Sosa MD [address] MD Unavailable Unavailable Dana Birmingham RN Unavailable Unavailable Severiano Daniel DO Unavailable Reason for Visit * Reason Comments Remote Monitoring Would like results Questions Encounter Details Care Team Description Date Type Department Annie Marie LPN Remote Monitoring Questions (Would like results) 05/17/2016 Telephone The [facility] [address] [facility] [place] [address] Social History Date Tobacco Use Types Packs/Day [...] encounter Miscellaneous Notes * Telephone Encounter - Massiel Fink RN - 05/17/2016 3:52 PM MACHINE ERECTOR I spoke with Faiza's daughter, Dipika and reviewed her remote with her. I told he r there was nothing abnormal on it. I told her that we normally call if remote not received or if there is a transmission that needs follow up. She voices unde rstanding and appreciates the follow up today. No further questions/concerns INE ERECTOR * Telephone Encounter - Annie Marie LPN - 05/17/2016 3:04 PM MACHINE ERECTOR VM from daughter Dipika on triage line. Stated that they would like results from transmission that was sent in March. She is at home number. INE ERECTOR documented in this encounter Plan of Treatment Not on filedocumented as of this encounter Visit Diagnoses Not on filedocumented in this encounter
--- OUTSIDE RECORDS SUMMARY | 2018-12-05 14:30 | XMS REPORT | Encounter Summary ---
Author Author [facility] Organization [facility] Address Unknown Phone Unavailable Care Team Providers Care Retail Sales Clerk Name Role Phone Dorian Muse MD Unavailable Dagmar Lopes MD PCP Ernesto Sosa MD [address] MD Unavailable Unavailable Dana Birmingham RN Unavailable Unavailable Severiano Daniel DO Unavailable Reason for Visit * Reason Comments Results Labs Encounter Details Care Team Description Date Type Department Shalini Blake Results (Labs) 09/07/2016 Telephone The [facility] [address] [place] [address] Social History Date Tobacco Use [...] * Telephone Encounter - Shalini Blake - 09/07/2016 12:43 PM CDT I spoke with patients daughter she verbalizes understanding about labs and will take patient for CXR when they receive order in the mail. I will mail out today. ----- Message from Aria Alcantar RN sent at 09/07/2016 11:33 AM CDT ----- Thyroid study complete and WNL for amiodarone monitoring. Will route normal results for patient to be notified and follow up with status o f CXR - order has been entered into chart, if we need to resend. Thank you documented in this encounter Plan of Treatment Not on filedocumented as of this encounter Visit Diagnoses Not on filedocumented in this encounter
--- OUTSIDE RECORDS SUMMARY | 2018-12-05 14:31 | XMS REPORT | Encounter Summary ---
Author Author [facility] Organization [facility] Address Unknown Phone Unavailable Care Team Providers Care Pourer Name Role Phone Dorian Muse MD Unavailable Dagmar Lopes MD PCP Ernesto Sosa MD [address] MD Unavailable Unavailable Dana Birmingham RN Unavailable Unavailable Severiano Daniel DO Unavailable Reason for Visit * Reason Comments Lab Request needs thyroid function now, repeat LFT's in 4 - 6 weeks Encounter Details Care Team Description Date Type Department Sasha Chen RN Lab Request (needs thyroid function now, repeat LFT's in 4 - 6 weeks) 02/11/[address] [address] Social History Date Tobacco Use Types [...] Telephone Encounter - Massiel Fink RN - 02/11/2016 4:44 PM CDT I spoke with Dipika. She asked for lab orders to be mailed to her mom's address a nd she will take her to have labs drawn in approx 5 weeks. I mailed the orders * Telephone Encounter - Annie Marie LPN - 02/11/2016 4:34 PM CDT VM from Dipika returning our call. * Telephone Encounter - Annie Marie LPN - 02/11/2016 10:46 AM CDT VM from daughter Dipika. Stated that she is in school but will have cell phone on and call her back at # [phone]. * Telephone Encounter - Sasha Chen, STEVEN - 02/11/2016 9:23 AM CDT left message for Mrs Nation that her labs were abnormal and will need to have f ull thyroid function test, will also need to have LFT's repeated in 4 - 6 weeks asked her to c/b and review above. will place orders in chart documented in this encounter Plan of Treatment Order Schedule Name Type Priority Associated Diagnoses Expected: 02/11/2016 (Approximate), Expires: 02/10/2017 THYROID STIMULATING Lab Routine Other specified HORMONE-TSH hypothyroidism Abnormal liver function test On amiodarone therapy Expected: 02/11/2016 (Approximate), Expires: 02/10/2017 FREE T4 (FREE THYROXINE) Lab Routine Other specified ONLY hypothyroidism Abnormal liver function test On amiodarone therapy Expected: 03/10/2016 (Approximate), Expires: 02/10/2017 LIVER FUNCTION PANEL Lab Routine Abnormal liver function test On amiodarone therapy documented as of this encounter Visit Diagnoses Diagnosis Other specified hypothyroidism - Primary Abnormal liver function test Other abnormal blood chemistry Abnormal thyroid blood test Nonspecific abnormal results of thyroid function study On amiodarone therapy documented in this encounter
--- OUTSIDE RECORDS SUMMARY | 2018-12-05 14:31 | XMS REPORT | Encounter Summary ---
Author Author [facility] Organization [facility] Address Unknown Phone Unavailable Care Team Providers Care Side Seam Envelope Machine Operator Name Role Phone Dorian Muse MD Unavailable Dagmar Lopes MD PCP Ernesto Sosa MD [address] MD Unavailable Unavailable Dana Birmingham RN Unavailable Unavailable Severiano Daniel DO Unavailable Reason for Visit * Reason Comments Amiodarone Monitoring labs complete/will review with MPE Encounter Details Care Team Description Date Type Department Janet Salcido RN Amiodarone Monitoring (labs complete/will review with MPE) 02/03/2016 Documentation The [facility] [address] [place] [address] Social History Date Tobacco Use Types Packs/Day Years Used Never Smoker Smokeless Tobacco: Never Used Drinks/Week oz/Week Comments Alcohol Use No Sex Assigned at Date Recorded Not on file Industry Job Start Date Occupation Not on file Not on file Not on file Travel End Travel History Travel Start No recent travel history available. documented as of this encounter Progress Notes * Janet Salcido RN - 02/03/2016 3:29 PM CDT Lab values are out of range. Results forwarded to provider's desktop for review. STEVEN Brooks documented in this encounter Plan of Treatment Not on filedocumented as of this encounter Procedures Comments Procedure Name Priority Date/Time Associated Diagnosis THYROID STIMULATING Routine 02/02/2016 HORMONE-TSH FREE T4 (FREE THYROXINE) Routine 02/02/2016 ONLY DIGOXIN LEVEL Routine 02/02/2016 LIVER FUNCTION PANEL Routine 02/02/2016 documented in this encounter Results * DIGOXIN LEVEL (02/02/2016) Digoxin 0.7 (L) 0.8 - 2.0 OTHER OUTSIDE LAB Specimen Blood - Blood Narrative Performed At Performing Organization Address City/State/Zipcode Phone Number OTHER OUTSIDE LAB * THYROID STIMULATING HORMONE-TSH (02/02/2016) TSH 0.28 (L) 0.49 - 4.67 OTHER OUTSIDE LAB Specimen Blood - Blood Narrative Performed At Performing Organization Address City/State/Zipcode Phone Number OTHER OUTSIDE LAB * FREE T4 (FREE THYROXINE) ONLY (02/02/2016) T4-Free 1.23 (H) 0.61 - 1.12 OTHER OUTSIDE LAB Specimen Blood - Blood Narrative Performed At Performing Organization Address City/State/Zipcode Phone Number OTHER OUTSIDE LAB * LIVER FUNCTION PANEL (02/02/2016) Total Bilirubin 0.8 OTHER OUTSIDE LAB Bilirubin, 0.2 OTHER OUTSIDE Direct LAB Albumin 4.0 OTHER OUTSIDE LAB Alk Phosphatase 57 OTHER OUTSIDE LAB AST (SGOT) 54 (H) 0 - 40 OTHER OUTSIDE LAB ALT (SGPT) 62 (H) 5 - 26 OTHER OUTSIDE LAB Total Protein 7.0 OTHER OUTSIDE LAB Specimen Blood - Blood Narrative Performed At Performing Organization Address City/State/Zipcode Phone Number OTHER OUTSIDE LAB documented in this encounter Visit Diagnoses Not on filedocumented in this encounter
--- OUTSIDE RECORDS SUMMARY | 2018-12-05 14:31 | XMS REPORT | Encounter Summary ---
Author Author [facility] Organization [facility] Address Unknown Phone Unavailable Care Team Providers Care Handle Sander Operator Name Role Phone Dorian Muse MD Unavailable Dagmar Lopes MD PCP Ernesto Sosa MD [address] MD Unavailable Unavailable Dana Birmingham RN Unavailable Unavailable Severiano Daniel DO Unavailable Reason for Visit * Reason Comments Lab Request Follow up amio monitoring Encounter Details Care Team Description Date Type Department Massiel Fink RN [phone] Lab Request (Follow up amio monitoring) 03/21/2016 Telephone The [facility] [address] [place] [address] Social History Date Tobacco Use Types Packs/Day [...] Telephone Encounter - Blanca Vincent RN - 04/04/2016 8:25 AM CDT Spoke with patient's daughter, Dipika about normal lab results. Labs to be rechec ked in 6 months and scripts to be mailed to patient at that time. * Telephone Encounter - Sera Miranda RN - 03/21/2016 3:39 PM CDT 03/21/2016 3:40 PM Dtr, Dipika, called back and states she has the lab slips and will take mom this week to get completed. * Telephone Encounter - Massiel Fink RN - 03/21/2016 8:55 AM CDT I LVM on daughter iDpika's confidential VM asking for call back to set up for lab work for her mom. * Telephone Encounter - Massiel Fink RN - 03/21/2016 8:53 AM CDT ----- Message from Aria Alcantar RN sent at 03/14/2016 7:42 AM CDT ----- Regarding: Repeat Amio monitoring due. Results? ----- Message ----- From: Aria Alcantar RN Sent: 03/13/2016 To: Олег Nurse Ep Subject: Amio monitoring due documented in this encounter Plan of Treatment Not on filedocumented as of this encounter Visit Diagnoses Not on filedocumented in this encounter
--- OUTSIDE RECORDS SUMMARY | 2018-12-05 14:31 | XMS REPORT | Encounter Summary ---
Author Author [facility] Organization [facility] Address Unknown Phone Unavailable Care Team Providers Care Cylinder Worker Name Role Phone Dorian Muse MD Unavailable Dagmar Lopes MD PCP Ernesto Sosa MD [address] MD Unavailable Unavailable Dana Birmingham RN Unavailable Unavailable Severiano Daniel DO Unavailable Reason for Visit * Reason Comments Labs Only Encounter Details Care Team Description Date Type Department Shari Ricci, RN Labs Only 03/29/2016 Documentation [facility] [address] [place] [address] Social History Date Tobacco Use [...] Priority Date/Time Associated Diagnosis THYROID STIMULATING Routine 03/29/2016 HORMONE-TSH FREE T4 (FREE THYROXINE) Routine 03/29/2016 ONLY COMPREHENSIVE METABOLIC Routine 03/29/2016 PANEL documented in this encounter Results * THYROID STIMULATING HORMONE-TSH (03/29/2016) TSH 0.92 OTHER OUTSIDE LAB Specimen Blood - Blood Narrative Performed At Performing Organization Address City/State/Zipcode Phone Number OTHER OUTSIDE LAB * FREE T4 (FREE THYROXINE) ONLY (03/29/2016) T4-Free 0.96 OTHER OUTSIDE LAB Specimen Blood - Blood Narrative Performed At Performing Organization Address City[facility]State[facility] Phone Number OTHER OUTSIDE LAB * COMPREHENSIVE METABOLIC PANEL (03/29/2016) Sodium OTHER OUTSIDE LAB Potassium OTHER OUTSIDE LAB Chloride OTHER OUTSIDE LAB CO2 OTHER OUTSIDE LAB Blood Urea OTHER OUTSIDE Nitrogen LAB Creatinine OTHER OUTSIDE LAB Glucose OTHER OUTSIDE LAB Calcium OTHER OUTSIDE LAB Total Protein OTHER OUTSIDE LAB Total Bilirubin OTHER OUTSIDE LAB Albumin 3.9 OTHER OUTSIDE LAB Alk Phosphatase 51 OTHER OUTSIDE LAB AST (SGOT) 29 OTHER OUTSIDE LAB ALT (SGPT) 41 OTHER OUTSIDE LAB eGFR Non OTHER OUTSIDE LAB Malian eGFR OTHER OUTSIDE Malian LAB Anion Gap OTHER OUTSIDE LAB Specimen Blood - Blood Narrative Performed At Performing Organization Address City/State/Zipcode Phone Number OTHER OUTSIDE LAB documented in this encounter Visit Diagnoses Not on filedocumented in this encounter
--- OUTSIDE RECORDS SUMMARY | 2018-12-05 14:31 | XMS REPORT | Encounter Summary ---
Author Author [facility] Organization [facility] Address Unknown Phone Unavailable Care Team Providers Care Receivable Executive Name Role Phone Dorian Muse MD Unavailable Dagmar Lopes MD PCP Ernesto Sosa MD [address] Monterroso MD Unavailable Unavailable Dana Birmingham RN Unavailable Unavailable Severiano Daniel DO Unavailable Encounter Details Care Team Description Date Type Department Marty Trejo MD [address] [facility] [id number] [place] [address] [phone] 04/01/2016 [facility] Cardiovascular Medicine Encounter Remote Device Check [phone] Social History Date Tobacco Use Types Packs/Day [...] as 0 directed as Needed. 04/11/2012 05/04/2018 [place]-3 Acid Ethyl Esters Take 1 Cap by [...] Date/Time Associated Diagnosis DEVICE EVALUATION - Routine 04/14/2016 Paroxysmal atrial REMOTE PPM 11:11 AM CDT fibrillation (HCC) documented in this encounter Results * DEVICE EVALUATION - REMOTE PPM (04/14/2016 11:11 AM CDT) Generator OTHER OUTSIDE Halftone Operator LAB Other Generator Model REVO MRI [id number] OTHER OUTSIDE # LAB Generator [id number] OTHER OUTSIDE Serial # LAB Generator 10/18/2011 [...] Research OTHER OUTSIDE Comments 2 LAB FÉLIX/EOL METAL CEILING HANGER=2.81V OTHER OUTSIDE Indicator LAB Generator Medtronic OTHER OUTSIDE Halftone Operator LAB Generator No OTHER OUTSIDE Investigational LAB Wireless No OTHER OUTSIDE Generator LAB Device Type DDD-PM OTHER OUTSIDE LAB Other Implant OTHER OUTSIDE Info LAB Atrial Lead OTHER OUTSIDE Halftone Operator LAB Other Atrial Lead CAPSUREFIX MRI SURESCAN OTHER OUTSIDE Model # 5086-52cm LAB Atrial Lead [id number] OTHER OUTSIDE Serial # LAB Atrial Lead 10/18/2011 OTHER OUTSIDE Implant Date LAB Atrial Lead OTHER OUTSIDE Location Other LAB Atrial Lead OTHER OUTSIDE Polarity Other LAB Atrial Lead 10 OTHER OUTSIDE Diaph. LAB Stimulation Atrial Lead Medtronic OTHER OUTSIDE Halftone Operator LAB Atrial Lead No OTHER OUTSIDE Investigational LAB Atrial Lead active fixation OTHER OUTSIDE Fixation LAB Atrial Lead right atrial appendage OTHER OUTSIDE Location LAB Atrial Lead Pin IS1 OTHER OUTSIDE Connector LAB Atrial Lead Bipolar OTHER OUTSIDE Polarity LAB RV Lead OTHER OUTSIDE Halftone Operator LAB Other RV Lead Model # CAPSUREFIX MRI SURESCAN OTHER OUTSIDE 5086-58cm LAB RV Lead Serial [id number] OTHER OUTSIDE # LAB RV Lead Implant 10/18/2011 OTHER OUTSIDE Date LAB RV Lead OTHER OUTSIDE Location Other LAB RV Lead Diaph. 10 OTHER OUTSIDE Stimulation LAB RV Lead Medtronic OTHER OUTSIDE Halftone Operator LAB RV Lead No OTHER OUTSIDE Investigational LAB RV Lead active fixation OTHER OUTSIDE Fixation LAB RV Lead RV low septum OTHER OUTSIDE Location LAB RV Lead Pin IS1 OTHER OUTSIDE Connector ICD LAB RV Lead Coil OTHER OUTSIDE LAB LV Lead OTHER OUTSIDE Halftone Operator LAB Other LV Lead Model # OTHER OUTSIDE LAB LV Lead Serial OTHER OUTSIDE # LAB LV Lead Implant OTHER OUTSIDE Date LAB LV Lead OTHER OUTSIDE Location Other LAB LV Lead OTHER OUTSIDE Polarity Other LAB LV Lead OTHER OUTSIDE Configuration LAB Other LV Lead OTHER OUTSIDE Halftone Operator LAB LV Lead OTHER OUTSIDE Investigational [...] remote LAB transmission AT/AF Daily OTHER OUTSIDE [place] Hours LAB Average Vent OTHER OUTSIDE Rate during LAB AT/AF #BPM Average Vent OTHER OUTSIDE Rate During LAB AT/AF #Hours Remote Yes OTHER OUTSIDE Monitoring? LAB Daily [place] OTHER OUTSIDE Threshld Alert? LAB Average OTHER OUTSIDE Venticular Rate LAB AT/AF On/Off VF OTHER OUTSIDE Detection/Thera LAB py Off EP Device Dr. Trejo OTHER OUTSIDE Followed by LAB Name EP Device MAC OTHER OUTSIDE Followed By LAB Device OTHER OUTSIDE [place] LAB Transmitter Device [facility] OTHER OUTSIDE [place] LAB Transmitter Compatible Remote Check? Yes OTHER OUTSIDE LAB Specimen Narrative Performed At OTHER OUTSIDE LAB Current monitoring period 04/01/16 - 07/01/16 [04/14/2016 [...] elevated LFT.- Will need to monitor AF [place]. Ventricular:none Yearly OV scheduled sometime in December 2016 with MPE. Will route to MPE for review and co-sign. [04/14/2016 2:42:55 PM - JYOTI KUMAR] Performing Organization Address City/State/Zipcode Phone Number OTHER OUTSIDE LAB documented in this encounter Visit Diagnoses Diagnosis Paroxysmal atrial fibrillation (HCC) Atrial fibrillation documented in this encounter
--- OUTSIDE RECORDS SUMMARY | 2018-12-05 14:32 | XMS REPORT | Encounter Summary ---
Author Author [facility] Organization [facility] Address Unknown Phone Unavailable Care Team Providers Care Senior Qa Analyst Name Role Phone Dorian Muse MD Unavailable Dagmar Lopes MD PCP Ernesto Sosa MD [address] Monterroso MD Unavailable Unavailable Dana Birmingham RN Unavailable Unavailable Severiano Daniel DO Unavailable Reason for Visit * Reason Comments Other Encounter Details Care Team Description Date Type Department Leeanne Burnette RN Other 11/23/2015 Telephone The [facility] [address] [place] [address] Social History Date Tobacco Use Types Packs/Day [...] encounter Miscellaneous Notes * Addendum Note - Sasha Bartlett RN - 11/26/2015 4:16 PM CDT Addended by: SASHA BARTLETT on: 11/26/2015 04:16 PM Modules accepted: Orders, Medications * Telephone Encounter - Sasha Bartlett RN - 11/26/2015 4:11 PM CDT reviewed below with Dr Trejo, will change amiodarone dosing to amiodarone 100 mg daily and recheck her labs in one month. called Dipika, daughter, and she verbalized understanding. She would like to hav e lab drawn closer to their home prior to her mom's appt with Dr Trejo in december. will mail requisition. Dipika prefers a new order be sent to her pharmacy for the 100 mg tablets as she does not want to cut the pills in 1. * Telephone Encounter - Sasha Bartlett RN - 11/25/2015 4:41 PM CDT see note below regarding conversation with daughter, Dipika. liver enzymes remai n elevated after decreasing amiodarone dose. remote sent and reviewed by Nathaly Campos RN - AF burden <0.1% (see report for full details. Will route to Dr Trejo for his advise regarding amiodarone dosing and recommenda tions. * Telephone Encounter - Sasha Bartlett RN - 11/25/2015 12:56 PM CDT Dipika returned call - appears there has been difficulty connecting with her via telephone. Call daughter, Dipika, on cell phone: [phone] She is inquiring about her mothers lab work drawn on 11/10 (LFT's) after amiodaro ne was decreased. Reviewed of chart: amiodarone - 200 mg daily 10/02/15 labs: AST 75 ALT 110 med change: amiodarone decreased to 5 x per week 11/11/15 labs: AST 101 ALT 107 today Ms Nation states she has had increased palpations. Will send remote ton ight and review all with Dr Trejo tomorrow routed ib to device nurses to keep eye out for remote transmission. * Telephone Encounter - Leeanne Burnette RN - 11/23/2015 12:48 PM CDT Patient's daughter Dipika LM to call back, no other information provided. I called and LM for Dipika to call back. documented in this encounter Plan of Treatment Not on filedocumented as of this encounter Results * LIVER FUNCTION PANEL (12/29/2015) Total Bilirubin 0.9 [facility] Bilirubin, 0.2 [facility] Direct [place] Albumin 4.0 [facility] Alk Phosphatase 54 [facility] AST (SGOT) 66 (A) 0 - 40 [facility] ALT (SGPT) 79 (A) 5 - 26 [facility] Total Protein 6.9 [facility] Specimen Blood - Blood Narrative Performed At [facility] Follow up from previous high AST, ALT. On 11/11/15 AST 101, ALT 107. On Amiodarone. Recommendations? Performing Organization Address City/State/Zipcode Phone Number [facility] [address] [place] [address] 10A documented in this encounter Visit Diagnoses Diagnosis PAF (paroxysmal atrial fibrillation) (HCC) - Primary Atrial fibrillation documented in this encounter
--- OUTSIDE RECORDS SUMMARY | 2018-12-05 14:32 | XMS REPORT | Encounter Summary ---
Author Author [facility] Organization [facility] Address Unknown Phone Unavailable Care Team Providers Care Residential Service Technician Name Role Phone Dorian Muse MD Unavailable Dagmar Lopes MD PCP Ernesto Sosa MD [address] Monterroso MD Unavailable Unavailable Dana Birmingham RN Unavailable Unavailable Severiano Daniel DO Unavailable Reason for Visit * Reason Comments Records Request Dr. Karol Gruber's office. See note Encounter Details Care Team Description Date Type Department Daisy Garcia MA Records Request (Dr. Karol Gruber's office. See note) 12/24/2015 Telephone The [facility] [id number] [place] [address] [address] [place], [place] [address] Social History Date Tobacco Use Types Packs/Day [...] encounter Miscellaneous Notes * Telephone Encounter - Daisy Garcia MA - 12/24/2015 2:44 PM CDT I called Dr. Karol Gruber's office to get stress test results as recommended by Dr. Trejo at the last visit as part of pre operative clearance. Abeba with Dr Felix Gruber's office stated that she was scheduled twice and the daughter had cancel led both times. documented in this encounter Plan of Treatment Not on filedocumented as of this encounter Visit Diagnoses Not on filedocumented in this encounter
--- OUTSIDE RECORDS SUMMARY | 2018-12-05 14:32 | XMS REPORT | Encounter Summary ---
Author Author [facility] Organization [facility] Address Unknown Phone Unavailable Care Team Providers Care Solid Surface Fabricator Name Role Phone Dorian Muse MD Unavailable Dagmar Lopes MD PCP Ernesto Sosa MD [address] Monterroso MD Unavailable Unavailable Dana Birmingham RN Unavailable Unavailable Severiano Daniel DO Unavailable Encounter Details Care Team Description Date Type Department Marty Trejo MD [address] [facility] [place] [address] [phone] 12/31/2015 [facility] [address] [place] [address] [address] [place] [address] Social History Date Tobacco Use Types Packs/Day [...] as 0 directed as Needed. 04/11/2012 05/04/2018 [place]-3 Acid Ethyl Esters Take 1 Cap by [...] Associated Diagnosis DEVICE EVALUATION - PPM Routine 12/31/2015 Bradycardia 10:39 AM CDT Paroxysmal atrial fibrillation (HCC) Cardiac device in situ documented in this encounter Results * DEVICE EVALUATION - PPM (12/31/2015 10:39 AM CDT) Generator OTHER OUTSIDE Front Desk Receptionist LAB Other Generator Model REVO MRI [id number] OTHER OUTSIDE # LAB Generator [id number] OTHER OUTSIDE Serial # LAB Generator 10/18/2011 [...] Research OTHER OUTSIDE Comments 2 LAB FÉLIX/EOL LENS BLANK GAUGER=2.81V OTHER OUTSIDE Indicator LAB Generator Medtronic OTHER OUTSIDE Front Desk Receptionist LAB Generator No OTHER OUTSIDE Investigational LAB Wireless No OTHER OUTSIDE Generator LAB Device Type DDD-PM OTHER OUTSIDE LAB Other Implant OTHER OUTSIDE Info LAB Atrial Lead OTHER OUTSIDE Front Desk Receptionist LAB Other Atrial Lead CAPSUREFIX MRI SURESCAN OTHER OUTSIDE Model # 5086-52cm LAB Atrial Lead [id number] OTHER OUTSIDE Serial # LAB Atrial Lead 10/18/2011 OTHER OUTSIDE Implant Date LAB Atrial Lead OTHER OUTSIDE Location Other LAB Atrial Lead OTHER OUTSIDE Polarity Other LAB Atrial Lead 10 OTHER OUTSIDE [place]. LAB Stimulation Atrial Lead Medtronic OTHER OUTSIDE Front Desk Receptionist LAB Atrial Lead No OTHER OUTSIDE Investigational LAB Atrial Lead active fixation OTHER OUTSIDE Fixation LAB Atrial Lead right atrial appendage OTHER OUTSIDE Location LAB Atrial Lead Pin IS1 OTHER OUTSIDE Connector LAB Atrial Lead Bipolar OTHER OUTSIDE Polarity LAB RV Lead OTHER OUTSIDE Front Desk Receptionist LAB Other RV Lead Model # CAPSUREFIX MRI SURESCAN OTHER OUTSIDE 5086-58cm LAB RV Lead Serial [id number] OTHER OUTSIDE # LAB RV Lead Implant 10/18/2011 OTHER OUTSIDE Date LAB RV Lead OTHER OUTSIDE Location Other LAB RV Lead Diaph. 10 OTHER OUTSIDE Stimulation LAB RV Lead Medtronic OTHER OUTSIDE Front Desk Receptionist LAB RV Lead No OTHER OUTSIDE Investigational LAB RV Lead active fixation OTHER OUTSIDE Fixation LAB RV Lead RV low septum OTHER OUTSIDE Location LAB RV Lead Pin IS1 OTHER OUTSIDE Connector ICD LAB RV Lead Coil OTHER OUTSIDE LAB LV Lead OTHER OUTSIDE Front Desk Receptionist LAB Other LV Lead Model # OTHER OUTSIDE LAB LV Lead Serial OTHER OUTSIDE # LAB LV Lead Implant OTHER OUTSIDE Date LAB LV Lead OTHER OUTSIDE Location Other LAB LV Lead OTHER OUTSIDE Polarity Other LAB LV Lead OTHER OUTSIDE Configuration LAB Other LV Lead OTHER OUTSIDE Front Desk Receptionist LAB LV Lead OTHER OUTSIDE Investigational LAB [...] No OTHER OUTSIDE LAB Date of Last 11/25/15 OTHER OUTSIDE Remote Check LAB Next Remote 03/2016 OTHER OUTSIDE Check Due LAB Enrollment Date OTHER OUTSIDE LAB Date of OTHER OUTSIDE baseline remote LAB transmission AT/AF Daily OTHER OUTSIDE [place] Hours LAB Average Vent OTHER OUTSIDE Rate during LAB AT/AF #BPM Average Vent OTHER OUTSIDE Rate During LAB AT/AF #Hours Remote Yes OTHER OUTSIDE Monitoring? LAB Daily [place] OTHER OUTSIDE Threshld Alert? LAB Average OTHER OUTSIDE Venticular Rate LAB AT/AF On/Off VF OTHER OUTSIDE Detection/Thera LAB py Off EP Device Dr. Trejo OTHER OUTSIDE Followed by LAB Name EP Device MAC OTHER OUTSIDE Followed By LAB Device OTHER OUTSIDE [place] LAB Transmitter Device [facility] OTHER OUTSIDE [place] LAB Transmitter Compatible # Mode S. OTHER OUTSIDE Events LAB # High AT/AF 0 since last remote on 11/24 OTHER OUTSIDE Evts LAB # High V Events OTHER OUTSIDE LAB Time in AT/AF 0.2% since 06/05/15 OTHER OUTSIDE LAB V Rate in AT/AF OTHER OUTSIDE LAB Single PVSc OTHER OUTSIDE LAB PVC runs OTHER OUTSIDE LAB Battery Voltage 2.97 OTHER OUTSIDE LAB Estimated OTHER OUTSIDE Longevity LAB Magent Rate OTHER OUTSIDE LAB A Sense mv 3.3 OTHER OUTSIDE LAB A Lead ohms 352 OTHER OUTSIDE LAB A Capture V 1.0 OTHER OUTSIDE LAB A Capture ms 0.4 OTHER OUTSIDE LAB Ao Voltage 2.0 OTHER OUTSIDE LAB AO Pulse Width 0.4 OTHER OUTSIDE LAB RV Sense mv 18.6 OTHER OUTSIDE LAB RV Lead ohms 536 OTHER OUTSIDE LAB RV Capture V 1.0 [...] V-V Timing OTHER OUTSIDE LAB Counters Clrd OTHER OUTSIDE LAB Saved to Disc OTHER OUTSIDE LAB Device OTHER OUTSIDE Reprogram LAB Comments Initial Rhythm 75bpm OTHER OUTSIDE LAB Underlying [id number] with ND ~350ms, (gets OTHER OUTSIDE Rhythm longer and blocks with faster LAB AP) -VS% <0.1 OTHER OUTSIDE LAB -AQUARIUM SPECIALIST% 0.2 OTHER OUTSIDE LAB -VS% 3.2 OTHER OUTSIDE LAB AP-AQUARIUM SPECIALIST% 96.6 OTHER OUTSIDE LAB Initial Rhythm AP-AQUARIUM SPECIALIST OTHER OUTSIDE LAB Device Function Yes OTHER OUTSIDE WNL LAB Device No OTHER OUTSIDE Reprogram LAB Programming? Yes OTHER OUTSIDE LAB Interrogation? Yes OTHER OUTSIDE LAB Device Check by OTHER OUTSIDE Rep LAB Remote Check? OTHER OUTSIDE LAB Specimen Narrative Performed At Dual chamber pacemaker programming.Device function appears normal. OTHER OUTSIDE LAB Events noted: Since 11/25/15 [facility] Atrial:none Ventricular:none Changes made to programming:none Remote monitoring is in place. Will continue to monitor.Gave Wire X adapter today. Discussed with pt and daughters. Report to Dr. Trejo in clinic [12/31/2015 4:01:33 PM - JYOTI KUMAR]. Performing Organization Address City/State/Zipcode Phone Number OTHER OUTSIDE LAB documented in this encounter Visit Diagnoses Diagnosis Bradycardia Other specified cardiac dysrhythmias Paroxysmal atrial fibrillation (HCC) Atrial fibrillation Cardiac device in situ Unspecified cardiac device in situ documented in this encounter
--- OUTSIDE RECORDS SUMMARY | 2018-12-05 14:32 | XMS REPORT | Encounter Summary ---
Author Author [facility] Organization [facility] Address Unknown Phone Unavailable Care Team Providers Care Hat Band Attacher Name Role Phone Dorian Muse MD Unavailable Dagmar Lopes MD PCP Ernesto Sosa MD [address] Monterroso MD Unavailable Unavailable Dana Birmingham RN Unavailable Unavailable Severiano Daniel DO Unavailable Reason for Visit * Reason Comments Lab Results LFT's - Recheck 1 month Encounter Details Care Team Description Date Type Department Jason Burgess RN Lab Results (LFT's - Recheck 1 month) 12/30/2015 Telephone The [address] [id number] Social History Date Tobacco Use Types Packs/Day [...] Telephone Encounter - Jason Burgess RN - 12/30/2015 4:27 PM CDT Notified pt's daughter of results and repeat in 1 month. Pt has OV with MPE on . 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 * Telephone Encounter - Jason Burgess RN - 12/30/2015 4:25 PM CDT ----- Message from JOSHUA Mercer sent at 12/30/2015 3:53 PM CDT --- -- Improved but still elevated. Let's check in 1 month to see make sure they contin ue to decline documented in this encounter Plan of Treatment Order Schedule Name Type Priority Associated Diagnoses Expected: 01/30/2016 (Approximate), Expires: 12/29/2016 LIVER FUNCTION PANEL Lab Routine Paroxysmal atrial fibrillation (HCC) documented as of this encounter Visit Diagnoses Diagnosis Paroxysmal atrial fibrillation (HCC) - Primary Atrial fibrillation documented in this encounter
--- OUTSIDE RECORDS SUMMARY | 2018-12-05 14:32 | XMS REPORT | Encounter Summary ---
Author Author [facility] Organization [facility] Address Unknown Phone Unavailable Care Team Providers Care Electric Motorman Name Role Phone Dorian Muse MD Unavailable Dagmar Lopes MD PCP Ernesto Sosa MD [address] Monterroso MD Unavailable Unavailable Dana Birmingham RN Unavailable Unavailable Severiano Daniel DO Unavailable Reason for Visit * Reason Comments Labs Only LFTs Encounter Details Care Team Description Date Type Department Leeanne Burnette RN Labs Only (LFTs) 12/30/2015 Documentation The [facility] [address] [facility] [place] [address] [place] [address] Social History Date Tobacco Use Types Packs/Day [...] Date/Time Associated Diagnosis LIVER FUNCTION PANEL Routine 12/29/2015 PAF (paroxysmal atrial fibrillation) (HCC) documented in this encounter Results * LIVER FUNCTION PANEL (12/29/2015) Total Bilirubin 0.9 [facility] Bilirubin, 0.2 [facility] [place] Albumin 4.0 [facility] [place] Alk Phosphatase 54 [facility] [place] AST (SGOT) 66 (A) 0 - 40 [facility] [place] ALT (SGPT) 79 (A) 5 - 26 [facility] Total Protein 6.9 [facility] Specimen Blood - Blood Narrative Performed At [facility] Follow up from previous high AST, ALT. On 11/11/15 AST 101, ALT 107. On Amiodarone. Recommendations? Performing Organization Address City/State/Zipcode Phone Number [facility] [address] [place] [address] 10A documented in this encounter Visit Diagnoses Diagnosis PAF (paroxysmal atrial fibrillation) (HCC) Atrial fibrillation documented in this encounter
--- OUTSIDE RECORDS SUMMARY | 2018-12-05 14:32 | XMS REPORT | Encounter Summary ---
Author Author [facility] Organization [facility] Address Unknown Phone Unavailable Care Team Providers Care Associate Engineer Name Role Phone Dorian Muse MD Unavailable Dagmar Lopes MD PCP Ernesto Sosa MD [address] Mel[address] Monterroso MD Unavailable Unavailable Dana Birmingham RN Unavailable Unavailable Severiano Daniel DO Unavailable Reason for Visit * Reason Comments Atrial fibrillation Encounter Details Care Team Description Date Type Department Marty Trejo MD [address] [facility] [place], [place] [id number] Atrial fibrillation 12/31/2015 Office Visit [facility] [address] [place] [address] [address] [place] [address] Social History Date Tobacco Use Types Packs/Day [...] Signs Reading Time Taken Comments Vital Sign 110/70 12/31/2015 10:53 AM CDT Blood Pressure 71 12/31/2015 10:53 AM CDT Pulse - - Temperature - - Respiratory Rate - - Oxygen Saturation - - Inhaled Oxygen Concentration 84.1 kg (185 lb 4.8 oz) 12/31/2015 10:53 AM CDT Weight 167.6 cm (5' 5.98") 12/31/2015 10:53 AM CDT Height 29.92 12/31/2015 10:53 AM CDT Body Mass Index documented in this encounter Patient Instructions * Patient Instructions* Lia Zambrano RN - 12/31/2015 12:01 PM CDT Get your liver function test labs in 3-[address] Trejo back in 1 year. est documented in this encounter Progress Notes * Marty Trejo MD - 12/31/2015 11:02 AM CDT Date of Service: 12/31/2015 Faiza Nation is a 80 y.o. female. HPI I had the pleasure of seeing your patient Faiza Nation in the [facility] as a part of the [facility] [place] office today fo r follow up regarding her AFIB and SND S/P DDDR PPM. She is typically followed by Dr. Gruber, her primary machine tool electrician, in [place], [place] Ms. Nation is an exceptionally pleasant 80 y.o. Female, who is accompanied by h er equally pleasant daughter. The past medical history and data below has been reviewed and updated by me wi th new events for today's visit. 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 2010: For Sxs of recurrent LHedness and palpitations she underwent Reveal ILR im plant by Dr. Gruber ~2010. The ILR documented AIFB and some Bradycardia/pauses. S he was therefore referred and evaluated by Dr. Sosa. 2011, She was originally seen by Dr. Sosa for PAFIB with frequent Sxic pauses. A Medtronic DDDR-PPM was implanted and she was initiated on Sotalol for her AFIB . Dr. Gruber followed her going forward. 2012 Developed CP --> underwent a Stress Test, Echocardiogram and a Cardiac Catheterization at an OSH. Stress test showed no ischemia with LVEF of 65%. Echocardiogram showed an LVEF 70% with LA size of 4.3 cm and myxomatous mitral valve degeneration. Her septal and posterior wall thickness was 1 cm. 12/2012 Cardiac Cath showed mid LAD 30% lesion and RCA of 40%- 50% with diffuse p laques. 06/2013 EP Consultation: Recurrent Tachypalpitations and increased AFIB burden. At that time we initiated Anticoagulation and reinitiated Metoprolol. We also in creased her PPM LRL to 70 ppm. We planned to switch to Amiodarone if she continu ed to have frequent AFIB. 09/2013 OV: Sxs concerning for possible TIA. She underwent a head CT in [facility] which was reportedly normal. Her digoxin level was elevated and her dosing was changed to every other day. Also, at that OV, her Device interrogation demonstrated that she had been a few episodes of short-lasting episodes of AFib. At that visit we chose to continue h er on her Sotalol and Pradaxa. 10/2014: Sxs of generalized weakness, tachypalpitations, short of breath, etc. We asked her to send the CareLink download. The CareLink download demonstrated that she was having persistent AFIB. She had been on Sotalol and Pradaxa (claimed c ompliance) --> Sotalol was discontinued, and after washout she was initiated on Amiodarone. 10/2014 Amiodarone initiated -- by 11/2014 her AF burden was decreasing. Since 02/18 015, it had dramatically dropped. 05/2015: Sxs of chest discomfort --> presented at a local emergency room in [place], [place]. Her evaluation apparently was unremarkable. She followed up with Dr. Nieves office. The nurse practitioner recommended a Lexiscan stress imaging study, but the patient/family refused. 06/05/15 OV/ Cardiac Eval for planned Rotator Cuff Surgery: Sxs of continued int ermittent chest discomfort, occasionally with associated palpitations/SOA. Dev ice interrogation at that time demonstrated thousands of episodes of AFIB since 09/2014; however, since 02/2015 her AF burden had been dramatically low. Also her ventricular rate was less than 100 BPM 95% of the time when she was in AFIB. Thus, given that her AFIB did not clearly explain her Sxs, I concurred with Dr. Nieves office, and also recommended a stress imaging study, which she would o btain via Dr. Gruber's office. 11/2015 Dr. Gruber did a bilateral Carotid ultrasound which showed no significant stenosis. She STATES she did not undergo rotator cuff surgery. Apparently was not symptoma tic enough for her to feel is worth the risk. She states at times at night she'll have tachypalpitations. His longest episode lasted approximately 5 minutes in duration. She denies alcohol consumption. She's had no recurrent chest discomfort. She denies any chest discomfort, shortness of breath, palpitations, lightheadedn ess, dizziness, near syncope or syncope, PND or orthopnea. FHx, SHx and ROS documented and I have reviewed, with some pertinent features to include: No FHx of premature CAD. She is a Non-Smoker. Most pertinent ROS is i ncluded/discussed throughout the note, e.g. HPI and A/P. ASSESSMENT AND PLAN: -- Prior Preop Evaluation: She elected to not have her rotator cuff surgery -- PAFIB: Her AFIB burden still remains low. She'll remain on Amiodarone 100 m g daily. See comments below regarding dosing adjustments, etc. -- Increased LFTs: For increased LFTs with levels in the 100-120 range we decre ased her amiodarone from 200 mg daily and 200 mg Monday through Monday. She did not have significant improvement. We therefore decreased her amiodarone 200 mg d aily for 700 mg a week which is half for her prior dosage had been. Repeat LFT s how significant improvement but not normalization. However as you are aware her amiodarone has a long half-life. Therefore his pH w as fact on a lower dose of amiodarone it may take a longer period of time. She j ust made the adjustment 3 weeks ago. Therefore will recheck her liver function testing approximately 4 weeks. If still elevated I may even further reduce her amiodarone which from he is unco mmon as opposed to stopping it. Ultimately however it may be that we have to accept her AFIB is permanent i.e. N o antiarrhythmic drug therapy. But, We'll await follow up results -- NSVT: She has had no recurrences. -- Anticoagulation: She remains on Pradaxa and is clinically doing well with no bleeding issues. -- Medtronic DDDR Permanent Pacemaker: Device is functioning well, no changes a t this time. -- Hypertension: Under good control. Ms. Nation was educated regarding [...] her follow-up with me in 12 month(s )--per their request. We'll continue to follow with Dr. Gruber as needed. We will check her device every 3 months remotely.. Filed Vitals: 12/31/15 1053 BP: 110/70 Pulse: 71 Height: 1.676 m (5' 5.98") Weight: 84.052 kg (185 lb 4.8 oz) Body mass index is 29.92 kg/(m^2). Past Medical History Patient Active Problem [...] Near syncope 09/16/2011 09/14/11 hospital admission to [facility] in [place], [place]. Reveal device 952 [id number] implanted by Allyn Petit MD. Cardiac device in situ, other 08/18/2011 09/16/11 Reveal device 9529, Medtronic. Review of Systems Constitution: Positive for chills and malaise/fatigue. HENT: Positive for ear pain and sore throat. Eyes: Positive for visual halos. Cardiovascular: Positive for dyspnea on exertion and irregular heartbeat. Respiratory: Positive for shortness of breath. Endocrine: Negative. Hematologic/Lymphatic: Bruises/bleeds easily. Skin: Positive for dry skin and itching. Musculoskeletal: Positive for arthritis, back pain, joint pain and muscle weakne ss. Gastrointestinal: Positive for bloating, abdominal pain, anorexia, change in bow el habit, diarrhea, dysphagia, hemorrhoids and nausea. Genitourinary: Positive for incomplete emptying. Neurological: Positive for tremors. Psychiatric/Behavioral: Negative. Allergic/Immunologic: Negative. All other systems reviewed and are negative. Physical Exam Constitutional: She is in no [...] obvious bruit. Regular rhythm, S1, S2. 2/6 s ystolic murmur noted at the LSB. No heaves, thrills or rubs. Musc/Skeletal-Extremities: Without significant peripheral edema. With what appe ars to be full ROM. Device Site: Is well-healed. Neuro: Patient is alert and oriented to person, place, and time. Psych: Patient does not appear anxious, she appears appropriate, with normal no n-pressured speech and what appears to be appropriate judgement Cardiovascular Studies ECG today documents 100% atrial ventricular paced rhythm. Full device check performed with reprogramming which I have extensively reviewed . Changes, if done, as discussed below and is detailed in other dictation/note. 7 AT/AF events since August. Total AFIB burden is less than 0.1% no high ventri cular rate advanced. 99.8% atrial paced 98% ventricular paced. Since May 20 our last office visit she had 50 to a telemetry rhythmic events longest epis ode was only 36 minutes in duration at 29 high atrial rate of events. Her AFIB b urden over the last 7 months is 0.2%. Her ventricular rate when in atrial fibril lation 90% of the time is very well rate controlled. Review of some of the elect rograms document what appeared to be an atrial tachycardia or an atypical atrial flutter cycling stutter somewhat variable in the 270-300 ms range. At times the y're able to be ATP terminated. Problems Addressed Today Encounter Diagnoses Name Primary? Paroxysmal atrial fibrillation (HCC) Yes Current Medications (including today's revisions) alprazolam (XANAX) 0.25 mg tablet Take 0.25 mg by mouth twice daily as neede d. amiodarone (CORDARONE) 200 mg tablet Take 0.5 Tabs by mouth daily. amLODIPine (NORVASC) 5 mg tablet Take 5 mg by mouth daily. BUSPIRONE HCL (BUSPAR PO) Take 15 mg by mouth twice daily. Calcium Carbonate-Vitamin D3 (VITAMIN D-3) 180-5,000 mg-unit Tab Take 1 Tab by mouth daily. dabigatran (PRADAXA) 150 mg capsule Take 150 [...] 40 mg by mouth daily. levothyroxine (SYNTHROID) 150 mcg tablet Take 150 mcg by mouth daily. liothyronine (CYTOMEL) 5 mcg tab Take 5 [...] Use 200 mg as directed as Needed. [place]-3 Acid Ethyl Esters (LOVAZA) 1 gram cap [...] by mouth every 6 hours as needed. documented in this encounter Plan of Treatment Order Schedule Name Type Priority Associated Diagnoses Ordered: 12/31/2015 ECG 12-LEAD ECG Routine Paroxysmal atrial fibrillation (HCC) documented as of this encounter Results * DEVICE EVALUATION - PPM (11/18/2016 9:09 AM CDT) Generator OTHER OUTSIDE Elevating Grader Operator LAB Other Generator Model REVO MRI RVDR01 OTHER OUTSIDE # LAB Generator [id number] OTHER OUTSIDE Serial # LAB Generator 10/18/2011 [...] Research OTHER OUTSIDE Comments 2 LAB FÉLIX/EOL CLINICAL ATHLETIC INSTRUCTOR=2.81V OTHER OUTSIDE Indicator LAB Generator Medtronic OTHER OUTSIDE Elevating Grader Operator LAB Generator No OTHER OUTSIDE Investigational LAB Wireless No OTHER OUTSIDE Generator LAB Device Type DDD-PM OTHER OUTSIDE LAB Other Implant OTHER OUTSIDE Info LAB Atrial Lead OTHER OUTSIDE Elevating Grader Operator LAB Other Atrial Lead CAPSUREFIX MRI SURESCAN OTHER OUTSIDE Model # 5086-52cm LAB Atrial Lead [id number] OTHER OUTSIDE Serial # LAB Atrial Lead 10/18/2011 OTHER OUTSIDE Implant Date LAB Atrial Lead OTHER OUTSIDE Location Other LAB Atrial Lead OTHER OUTSIDE Polarity Other LAB Atrial Lead 10 OTHER OUTSIDE Diaph. LAB Stimulation Atrial Lead Medtronic OTHER OUTSIDE Elevating Grader Operator LAB Atrial Lead No OTHER OUTSIDE Investigational LAB Atrial Lead active fixation OTHER OUTSIDE Fixation LAB Atrial Lead right atrial appendage OTHER OUTSIDE Location LAB Atrial Lead Pin IS1 OTHER OUTSIDE Connector LAB Atrial Lead Bipolar OTHER OUTSIDE Polarity LAB RV Lead OTHER OUTSIDE Elevating Grader Operator LAB Other RV Lead Model # CAPSUREFIX MRI SURESCAN OTHER OUTSIDE 5086-58cm LAB RV Lead Serial [id number] OTHER OUTSIDE # LAB RV Lead Implant 10/18/2011 OTHER OUTSIDE Date LAB RV Lead OTHER OUTSIDE Location Other LAB RV Lead Diaph. 10 OTHER OUTSIDE Stimulation LAB RV Lead Medtronic OTHER OUTSIDE Elevating Grader Operator LAB RV Lead No OTHER OUTSIDE Investigational LAB RV Lead active fixation OTHER OUTSIDE Fixation LAB RV Lead RV low septum OTHER OUTSIDE Location LAB RV Lead Pin IS1 OTHER OUTSIDE Connector ICD LAB RV Lead Coil OTHER OUTSIDE LAB LV Lead OTHER OUTSIDE Elevating Grader Operator LAB Other LV Lead Model # OTHER OUTSIDE LAB LV Lead Serial OTHER OUTSIDE # LAB LV Lead Implant OTHER OUTSIDE Date LAB LV Lead OTHER OUTSIDE Location Other LAB LV Lead OTHER OUTSIDE Polarity Other LAB LV Lead OTHER OUTSIDE Configuration LAB Other LV Lead OTHER OUTSIDE Elevating Grader Operator LAB LV Lead OTHER OUTSIDE Investigational [...] remote LAB transmission AT/AF Daily OTHER OUTSIDE [place] Hours LAB Average Vent OTHER OUTSIDE Rate during LAB AT/AF #BPM Average Vent OTHER OUTSIDE Rate During LAB AT/AF #Hours Remote Yes OTHER OUTSIDE Monitoring? LAB Daily [place] OTHER OUTSIDE Threshld Alert? LAB Average OTHER OUTSIDE Venticular Rate LAB AT/AF On/Off VF OTHER OUTSIDE Detection/Thera LAB py Off EP Device Dr. Trejo OTHER OUTSIDE Followed by LAB Name EP Device MAC OTHER OUTSIDE Followed By LAB Device OTHER OUTSIDE [place] LAB Transmitter Device Carelink Express OTHER OUTSIDE [place] LAB Transmitter Compatible On AntiCoag 10/10/16 OTHER [...] Battery Voltage 2.96 OTHER OUTSIDE LAB Estimated CLINICAL ATHLETIC INSTRUCTOR is 2.81 OTHER OUTSIDE Longevity LAB Magent [...] Rhythm LAB -VS% <1 OTHER OUTSIDE LAB -EQUITY TRADER% 7.0 OTHER OUTSIDE LAB -VS% 1.7 OTHER OUTSIDE LAB AP-EQUITY TRADER% 91.2 OTHER OUTSIDE LAB Initial Rhythm OTHER OUTSIDE LAB Device Function Yes OTHER OUTSIDE WNL LAB Device Yes OTHER OUTSIDE Reprogram LAB Programming? Yes OTHER OUTSIDE LAB Interrogation? Yes OTHER OUTSIDE LAB Device Check by OTHER OUTSIDE Rep LAB [place] OTHER OUTSIDE Transmitter LAB Check Activity OTHER [...] PAF/anticoag. Ventricular:0 Pt V paces 98.2%. Underlying RI interval 340 ms and underlying AR interval [...]
--- OUTSIDE RECORDS SUMMARY | 2018-12-05 14:33 | XMS REPORT | Encounter Summary ---
Author Author [facility] Organization [facility] Address Unknown Phone Unavailable Care Team Providers Care Laborer Bituminous Paving Name Role Phone Dorian Muse MD Unavailable Dagamr Lopes MD PCP Ernesto Sosa MD [address] Monterroso MD Unavailable Unavailable Dana Birmingham RN Unavailable Unavailable Severiano Daniel DO Unavailable Reason for Visit * Reason Comments Amiodarone Monitoring lab review Encounter Details Care Team Description Date Type Department Lia Zambrano RN Amiodarone Monitoring (lab review) 10/13/2015 Documentation The [address] [address] Social History Date Tobacco Use Types Packs/Day Years Used Never Smoker Smokeless Tobacco: Never Used Drinks/Week oz/Week Comments Alcohol Use No Sex Assigned at Date Recorded Not on file Industry Job Start Date Occupation Not on file Not on file Not on file Travel End Travel History Travel Start No recent travel history available. documented as of this encounter Progress Notes * Aurea Reyes RN - 10/20/2015 1:29 PM CDT Patient will recheck lab in 2 weeks. Spoke to Dipika she verbalized understanding of instructions. * Lia Zambrano RN - 10/16/2015 8:31 AM CDT LM on Dipika's VM for her to CB to discuss results. * Lia Zambrano RN - 10/13/2015 1:18 PM CDT Labs reviewed in clinic with MPE. Placed call to pt. to discuss. LM on daughter Dipika's voicemail requesting CB. At time of CB, please notify Dipika of elevated AST and ALT and inquire about any alcohol or tylenol use. If pt is drinking any alcohol and/or taking tylenol, advise patient to stop. If pt. is not drinking, d ecrease amiodarone to 200 mg daily Monday-Monday with weekends off amiodarone. R echeck amiodarone monitoring labs in 2 weeks (ordered entered). documented in this encounter Miscellaneous Notes * Addendum Note - Sugey Fink RN - 10/14/2015 12:40 PM CDT Addended by: SUGEY FINK on: 10/14/2015 12:40 PM Modules accepted: Orders, Medications documented in this encounter Plan of Treatment Order Schedule Name Type Priority Associated Diagnoses Expected: 10/13/2015 (Approximate), Expires: 10/12/2016 THYROID STIMULATING Lab Routine On amiodarone therapy HORMONE-TSH Expected: 10/13/2015 (Approximate), Expires: 10/12/2016 LIVER FUNCTION PANEL Lab Routine On amiodarone therapy documented as of this encounter Visit Diagnoses Diagnosis On amiodarone therapy - Primary documented in this encounter
--- OUTSIDE RECORDS SUMMARY | 2018-12-05 14:33 | XMS REPORT | Encounter Summary ---
Author Author [facility] Organization [facility] Address Unknown Phone Unavailable Care Team Providers Care Senior Administrator Support Name Role Phone Dorian Muse MD Unavailable Dagmar Lopes MD PCP Ernesto Sosa MD [address] Monterroso MD Unavailable Unavailable Dana Birmingham RN Unavailable Unavailable Severiano Daniel DO Unavailable Reason for Visit * Reason Comments Labs Only Encounter Details Care Team Description Date Type Department Neymar Rossi Labs Only 10/05/2015 Documentation [facility] [address] [facility] [place] [address] Social History Date Tobacco Use Types Packs/Day [...] Priority Date/Time Associated Diagnosis THYROID STIMULATING Routine 10/02/2015 HORMONE-TSH FREE T4 (FREE THYROXINE) Routine 10/02/2015 ONLY COMPREHENSIVE METABOLIC Routine 10/02/2015 PANEL documented in this encounter Results * FREE T4 (FREE THYROXINE) ONLY (10/02/2015) T4-Free 1.16 (H) 0.61 - 1.12 OTHER OUTSIDE LAB Specimen Blood - Blood Narrative Performed At Performing Organization Address City/State/Zipcode Phone Number OTHER OUTSIDE LAB * THYROID STIMULATING HORMONE-TSH (10/02/2015) TSH 2.53 0.49 - 4.67 OTHER OUTSIDE LAB Specimen Blood - Blood Narrative Performed At Performing Organization Address City/State/Zipcode Phone Number OTHER OUTSIDE LAB * COMPREHENSIVE METABOLIC PANEL (10/02/2015) Sodium 132 OTHER OUTSIDE LAB Potassium 4.4 OTHER OUTSIDE LAB Chloride 102 OTHER OUTSIDE LAB CO2 20.0 (L) 24.0 - 34.0 OTHER OUTSIDE LAB Blood Urea 22 OTHER OUTSIDE Nitrogen LAB Creatinine 1.2 OTHER OUTSIDE LAB Glucose 110 OTHER OUTSIDE LAB Calcium 8.8 OTHER OUTSIDE LAB Total Protein 6.8 OTHER OUTSIDE LAB Total Bilirubin 1.2 OTHER OUTSIDE LAB Albumin 3.8 OTHER OUTSIDE LAB Alk Phosphatase 61 OTHER OUTSIDE LAB AST (SGOT) 74 (H) 0 - 40 OTHER OUTSIDE LAB ALT (SGPT) 110 (H) 5 - 26 OTHER OUTSIDE LAB eGFR Non 46 (L) >59 OTHER OUTSIDE LAB Syrian eGFR OTHER OUTSIDE Syrian LAB Anion Gap OTHER OUTSIDE LAB Specimen Blood - Blood Narrative Performed At Performing Organization Address City/State/Zipcode Phone Number OTHER OUTSIDE LAB documented in this encounter Visit Diagnoses Not on filedocumented in this encounter
--- OUTSIDE RECORDS SUMMARY | 2018-12-05 14:33 | XMS REPORT | Encounter Summary ---
Author Author [facility] Organization [facility] Address Unknown Phone Unavailable Care Team Providers Care Whittling Room Operator Name Role Phone Dorian Muse MD Unavailable Dagmar Lopes MD PCP Ernesto Sosa MD [address] Monterroso MD Unavailable Unavailable Dana Birmingham RN Unavailable Unavailable Severiano Daniel DO Unavailable Reason for Visit * Reason Comments Labs Only Liver Encounter Details Care Team Description Date Type Department Shalini Blake Labs Only (Liver) 11/12/2015 Documentation [facility] [address] [place] [address] Social History Date Tobacco Use [...] Date/Time Associated Diagnosis LIVER FUNCTION PANEL Routine 11/11/2015 documented in this encounter Results * LIVER FUNCTION PANEL (11/11/2015) Total Bilirubin 0.6 [facility] [place] Bilirubin, 0.1 [facility] [place] Albumin 3.9 [facility] [place] Alk Phosphatase 63 [facility] [place] AST (SGOT) 101 0 - 40 [facility] [place] ALT (SGPT) 107 5 - 26 [facility] [place] Total Protein 7.0 [facility] [place] Specimen Blood - Blood Performing Organization Address City/State/Zipcode Phone Number [facility] [address] [place] [address] 10A documented in this encounter Visit Diagnoses Not on filedocumented in this encounter
--- OUTSIDE RECORDS SUMMARY | 2018-12-05 14:33 | XMS REPORT | Encounter Summary ---
Author Author [facility] Organization [facility] Address Unknown Phone Unavailable Care Team Providers Care Workday Consultant Name Role Phone Dorian Muse MD Unavailable Dagmar Lopes MD PCP Ernesto Sosa MD [address] Monterroso MD Unavailable Unavailable Dana Birmingham RN Unavailable Unavailable Severiano Daniel DO Unavailable Reason for Visit * Reason Comments Pre-op Clearance Pradaxa hold Encounter Details Care Team Description Date Type Department Massiel Fink RN [phone] Pre-op Clearance (Pradaxa hold) 07/09/2015 Telephone The [address] [place] [address] Social History Date Tobacco Use Types Packs/Day [...] Telephone Encounter - Jason Burgess RN - 07/09/2015 3:53 PM AIRCRAFT ENGINE ASSEMBLER LMOM for pt's the updated instruction for pradaxa. RAFT ENGINE ASSEMBLER * Telephone Encounter - Jason Burgess RN - 07/09/2015 3:49 PM AIRCRAFT ENGINE ASSEMBLER Pt scheduled for EGD on 07/15/15. Request for pt to stop Pradaxa 5 days prior to procedure. Reviewed with MPE. Pt can stop Pradaxa 2 full days prior to her proce dure, last dose of Pradaxa will be on 07/12/15. Pradaxa's half life 12-17hr, ther efore with 2 days hold of pradaxa, pt will be cleared of the drug. Pradaxa recommendations faxed to Dr. Navarro's office at [phone]. RAFT ENGINE ASSEMBLER * Telephone Encounter - Massiel Fink, STEVEN - 07/09/2015 3:19 PM AIRCRAFT ENGINE ASSEMBLER Faiza's daughter called stating that her mom is having hiatal hernia surgery and they want stop "all of her heart medications". Needing to be addressed for melida alvarez 07/15. I called her daughter, to find out if she knew which "heart meds" th were referring to- she said Pradaxa. I told her I would get a message to NATTY and we can follow up. She is going to have the surgeon office fax a note wit h contact info for surgeon. [id number] is 3 for age, sex and HTN. last pacemaker check in May, showed that she was having short episodes of a trial fib. Nathaly Fink RN, CH[facility] Heart Rhythm Management - Triage RAFT ENGINE ASSEMBLER documented in this encounter Plan of Treatment Not on filedocumented as of this encounter Visit Diagnoses Not on filedocumented in this encounter
--- OUTSIDE RECORDS SUMMARY | 2018-12-05 14:33 | XMS REPORT | Encounter Summary ---
Author Author [facility] Organization [facility] Address Unknown Phone Unavailable Care Team Providers Care Perianesthesia Nurse Name Role Phone Dorian Muse MD Unavailable Dagmar Lopes MD PCP Ernesto Sosa MD [address] MD Unavailable Unavailable Dana Birmingham RN Unavailable Unavailable Severiano Daniel DO Unavailable Reason for Visit * Reason Comments Medication Dose Change r/t remote results Encounter Details Care Team Description Date Type Department Aria Alcantar RN Medication Dose Change (r/t remote results) 09/21/2015 Tele[address] [id number] Social History Date Tobacco Use Types Packs/Day [...] Addendum Note - Sugey Fink RN - 09/21/2015 4:31 PM CDT Addended by: SUGEY FINK on: 09/21/2015 04:31 PM Modules accepted: Orders, Medications * Telephone Encounter - Sugey Fink RN - 09/21/2015 4:29 PM CDT I spoke with Dipika and reviewed note with her. Amio will be at 200mg/d. She ask ed for amio lab and xray to be mailed to her at the address on chart. no further questions/concerns Nathaly Fink RN, [facility] Heart Rhythm Management - Triage * Telephone Encounter - Aria Alcantar RN - 09/21/2015 1:05 PM CDT Per remote results from 09/09/2015 - AT/AF burden 0.4% of the time. Per last OV note: 1. PAFIB: She has had dramatic improvement on amiodarone. We will continue her a miodarone at 400 mg a day especially through the holidays and through her surger y. She has a scheduled [facility] download on September 04, 2015. She will contact us the day after that, and if she has had a low AFib burden, we will decrease her amiodarone to 200 mg daily at that time. Reviewed with MPE. Agreeable with the plan to decrease Amiodarone to 200mg neil kee LM for Dipika ([phone]) requesting CB. 1.) Does patient have any upcoming procedures planned? 2.) If no, will plan to reduce Amiodarone to 200mg daily. 3.) Patient is due for Amiodarone monitoring (unless patient had completed with another provider). Labs and CXR order in computer No updates made to medication list reviewed with patient's daughter. documented in this encounter Plan of Treatment Order Schedule Name Type Priority Associated Diagnoses Expected: 09/21/2015 (Approximate), Expires: 09/20/2016 COMPREHENSIVE METABOLIC Lab Routine Paroxysmal atrial PANEL fibrillation Encounter for monitoring amiodarone therapy Expected: 09/21/2015 (Approximate), Expires: 09/20/2016 THYROID STIMULATING Lab Routine Other specified HORMONE-TSH hypothyroidism Encounter for monitoring amiodarone therapy Expected: 09/21/2015 (Approximate), Expires: 09/20/2016 FREE T4 (FREE THYROXINE) Lab Routine Other specified ONLY hypothyroidism Expected: 09/21/2015 (Approximate), Expires: 09/20/2016 CHEST 2 VIEWS Imaging Routine Encounter for monitoring amiodarone therapy documented as of this encounter Visit Diagnoses Diagnosis Other specified hypothyroidism - Primary Paroxysmal atrial fibrillation Atrial fibrillation Encounter for monitoring amiodarone therapy Encounter for therapeutic drug monitoring documented in this encounter
--- OUTSIDE RECORDS SUMMARY | 2018-12-05 14:33 | XMS REPORT | Encounter Summary ---
Author Author [facility] Organization [facility] Address Unknown Phone Unavailable Care Team Providers Care [employer] Principal Name Role Phone Dorian Muse MD Unavailable Dagmar Lopes MD PCP Ernesto Sosa MD [address] MD Unavailable Unavailable Dana Birmingham RN Unavailable Unavailable Severiano Daniel DO Unavailable Reason for Visit * Reason Comments Follow-up Phone Call General surgery cancelled on 07/02/15 Encounter Details Care Team Description Date Type Department Jason Burgess RN Follow-up Phone Call (General surgery cancelled on 07/02/15) 06/09/[address] Tele[address] [id number] Social History Date Tobacco Use Types Packs/Day [...] Telephone Encounter - Jason Burgess RN - 06/09/2015 10:22 AM SPEECH ASSISTANT Pt has cancelled her surgery on 07/02/15, therefore no need for remote monitor on 06/29/15. Remote has been cancelled. Pt happy with plan. CH ASSISTANT documented in this encounter Plan of Treatment Not on filedocumented as of this encounter Visit Diagnoses Not on filedocumented in this encounter
--- OUTSIDE RECORDS SUMMARY | 2018-12-05 14:33 | XMS REPORT | Encounter Summary ---
Author Author [facility] Organization [facility] Address Unknown Phone Unavailable Care Team Providers Care Poultry Scientist Name Role Phone Dorian Muse MD Unavailable Dagmar Lopes MD PCP Ernesto Sosa MD [address] MD Unavailable Unavailable Dana Birmingham RN Unavailable Unavailable Severiano aDniel DO Unavailable Encounter Details Care Team Description Date Type Department Marty Trejo MD [address] [facility] [id number] [place] [address] [phone] 09/07/2015 Hospital Cardiovascular Medicine Encounter Remote Device Check [phone] Social History Date Tobacco Use Types Packs/Day [...] mg by 0 mg tablet mouth daily. potassium chloride SR Take 40 mEq 0 (K-DUR) 20 mEq tablet by mouth daily. sertraline (ZOLOFT) 50 mg Take 50 mg by 0 tablet mouth daily. sucralfate (CARAFATE) 1 Take 1 g by 0 gram tablet mouth at bedtime daily. 10/21/2014 09/21/2015 amiodarone (CORDARONE) Take 2 Tabs 180 Tab 3 200 mg tabletIndications: by mouth Paroxysmal atrial daily. fibrillation (HCC) 05/04/2018 amLODIPine (NORVASC) 5 mg Take 2.5 mg 0 tablet by mouth daily. 05/18/2017 Calcium Carbonate-Vitamin Take 1 Tab by 0 D3 (VITAMIN D-3) mouth daily. 180-5,000 mg-unit Tab 11/18/2016 levothyroxine (SYNTHROID) Take 150 mcg 0 150 mcg tablet by mouth daily. 05/18/2017 meclizine (ANTIVERT) 25 Take 25 mg by 0 mg tablet mouth as Needed. 07/08/2013 05/18/2017 metoprolol (LOPRESSOR) 25 Take 0.5 Tabs 180 Tab 3 mg tablet by mouth twice daily. 05/18/2017 NYSTATIN (BULK) MISC Use 200 mg as 0 directed as Needed. 04/11/2012 05/04/2018 Brule-3 Acid Ethyl Esters Take 1 Cap by 360 Cap 2 (LOVAZA) 1 gram cap mouth four times daily. 12/31/[address](+) Take 40 mg by 0 (PRILOSEC) 40 mg capsule mouth daily. 12/31/2015 ondansetron (ZOFRAN) 4 mg Take 4 mg by 0 tablet mouth every 12 hours as needed for Nausea or Vomiting. 05/04/2018 topiramate (TOPAMAX) 25 Take 25 mg by 0 mg tablet mouth twice daily. 05/04/2018 traMADol (ULTRAM) 50 mg Take 50 mg by 0 tablet mouth every 6 hours as needed. documented as of this encounter Plan of Treatment Not on filedocumented as of this encounter Procedures Comments Procedure Name Priority Date/Time Associated Diagnosis DEVICE EVALUATION - Routine 09/09/2015 Paroxysmal atrial REMOTE PPM 1:59 PM CDT fibrillation (HCC) documented in this encounter Results * DEVICE EVALUATION - REMOTE PPM (09/09/2015 1:59 PM CDT) Generator OTHER OUTSIDE Machine [employer] Lead Man LAB Other Generator Model REVO MRI [id number] OTHER OUTSIDE # LAB Generator [id number] OTHER OUTSIDE Serial # LAB Generator 10/18/2011 [...] Research OTHER OUTSIDE Comments 2 LAB FÉLIX/EOL ENDOSCOPIC TECHNICIAN=2.81V OTHER OUTSIDE Indicator LAB Generator Medtronic OTHER OUTSIDE Machine Shop Lead Man LAB Generator No OTHER OUTSIDE Investigational LAB Wireless No OTHER OUTSIDE Generator LAB Device Type DDD-PM OTHER OUTSIDE LAB Other Implant OTHER OUTSIDE Info LAB Atrial Lead OTHER OUTSIDE Machine Shop Lead Man LAB Other Atrial Lead CAPSUREFIX MRI SURESCAN OTHER OUTSIDE Model # 5086-52cm LAB Atrial Lead [id number] OTHER OUTSIDE Serial # LAB Atrial Lead 10/18/2011 OTHER OUTSIDE Implant Date LAB Atrial Lead OTHER OUTSIDE Location Other LAB Atrial Lead OTHER OUTSIDE Polarity Other LAB Atrial Lead 10 OTHER OUTSIDE Diaph. LAB Stimulation Atrial Lead Medtronic OTHER OUTSIDE Machine [employer] Lead Man LAB Atrial Lead No OTHER OUTSIDE Investigational LAB Atrial Lead active fixation OTHER OUTSIDE Fixation LAB Atrial Lead right atrial appendage OTHER OUTSIDE Location LAB Atrial Lead Pin IS1 OTHER OUTSIDE Connector LAB Atrial Lead Bipolar OTHER OUTSIDE Polarity LAB RV Lead OTHER OUTSIDE Machine Shop Lead Man LAB Other RV Lead Model # CAPSUREFIX MRI SURESCAN OTHER OUTSIDE 5086-58cm LAB RV Lead Serial [id number] OTHER OUTSIDE # LAB RV Lead Implant 10/18/2011 OTHER OUTSIDE Date LAB RV Lead OTHER OUTSIDE Location Other LAB RV Lead Diaph. 10 OTHER OUTSIDE Stimulation LAB RV Lead Medtronic OTHER OUTSIDE Machine Shop Lead Man LAB RV Lead No OTHER OUTSIDE Investigational LAB RV Lead active fixation OTHER OUTSIDE Fixation LAB RV Lead RV low septum OTHER OUTSIDE Location LAB RV Lead Pin IS1 OTHER OUTSIDE Connector ICD LAB RV Lead Coil OTHER OUTSIDE LAB LV Lead OTHER OUTSIDE Machine Shop Lead Man LAB Other LV Lead Model # OTHER OUTSIDE LAB LV Lead Serial OTHER OUTSIDE # LAB LV Lead Implant OTHER OUTSIDE Date LAB LV Lead OTHER OUTSIDE Location Other LAB LV Lead OTHER OUTSIDE Polarity Other LAB LV Lead OTHER OUTSIDE Configuration LAB Other LV Lead OTHER OUTSIDE Machine Shop Lead Man LAB LV Lead OTHER OUTSIDE Investigational LAB [...] OTHER OUTSIDE Dependant LAB Date of Last 06/05/15 OTHER OUTSIDE Programming LAB Next 11/2015 OTHER OUTSIDE Programming LAB Check Due Date of Last OTHER OUTSIDE Interrogation LAB Date of Last OTHER OUTSIDE ICM Evaluation LAB Next ICM Check OTHER OUTSIDE Due LAB HF Patient No OTHER OUTSIDE LAB Date of Last 01/20/15 OTHER OUTSIDE Remote Check LAB Next Remote 08/2015 OTHER OUTSIDE Check Due LAB Enrollment Date OTHER OUTSIDE LAB Date of OTHER OUTSIDE baseline remote LAB transmission AT/AF Daily OTHER OUTSIDE [place] Hours LAB Average Vent OTHER OUTSIDE Rate during LAB AT/AF #BPM Average Vent OTHER OUTSIDE Rate During LAB AT/AF #Hours Remote Yes OTHER OUTSIDE Monitoring? LAB Daily [place] OTHER OUTSIDE Threshld Alert? LAB Average OTHER OUTSIDE Venticular Rate LAB AT/AF On/Off VF OTHER OUTSIDE Detection/Thera LAB py Off EP Device Dr. Trejo OTHER OUTSIDE Followed by LAB Name EP Device MAC OTHER OUTSIDE Followed By LAB Device OTHER OUTSIDE [place] [facility] Transmitter Device [facility] OTHER OUTSIDE [place] [facility] Transmitter Compatible Specimen Narrative Performed At OTHER OUTSIDE LAB Current Monitoring Period: 09/07/15 through 12/07/15 [11/25/2015 2:55:59 PM - JYTOI KUMAR] Requested remote received and reviewed. "her liver enzymes are still up and need to decide about further decreasing her amiodarone. will have them send in a transmission today to check rhythm and AF burden. said she is feeling more palpitations." Presenting rhythm shows Ap-SECURITY COMPLIANCE SPECIALIST 88bpm. Events noted: Since 09/04/15 Atrial: 7 min total of AT/AF, <0.1%burden. 2 treated AT/AF, 4 monitored, last was 39sec on 10/18, longest 2 min on 09/28/15 (2 on this day) EGMs show slow Aflutter 180sbpm with controlled V rates 70s bpm, paced. Ventricular:None PVC counter <0.1/hr Remote monitoring is in place.Will continue to monitor. Report to Dr. Trejo. See attached report for details. [09/09/2015 2:00:05 PM - RITA GUERRA] Scheduled [facility] transmission received.Device function appears normal. Events noted since 06/05/15: Atrial:20 treated and 25 monitored AT/AF events for 0.4% of the time. Available EGM's appear to show A-Fib/A-Flutter with V-pacing.V-rates < 100 bpm about 90% of the time.Pt with a hx of PAF and on Pradaxa. Ventricular:None. Please see scanned data sheets for further review as needed. Pt is scheduled to follow up on 12/31/15 with MPE at the OP office. Performing Organization Address City/State/Zipcode Phone Number OTHER OUTSIDE LAB documented in this encounter Visit Diagnoses Diagnosis Paroxysmal atrial fibrillation (HCC) Atrial fibrillation documented in this encounter
--- OUTSIDE RECORDS SUMMARY | 2018-12-05 14:34 | XMS REPORT | Encounter Summary ---
Author Author [facility] Organization [facility] Address Unknown Phone Unavailable Care Team Providers Care Photolettering Machine Operator Name Role Phone Dorian Muse MD Unavailable Dagmar Lopes MD PCP Ernesto Sosa MD [address] MD Unavailable Unavailable Dana Birmingham RN Unavailable Unavailable Severiano Daniel DO Unavailable Reason for Visit * Reason Comments Records Request Dr. Karol Gruber Encounter Details Care Team Description Date Type Department Aria Alcantar, STEVEN Records Request (Dr. Karol Gruber) 06/04/2015 Documentation The [facility] [address] [place] [address] Social History Date Tobacco Use Types Packs/Day Years Used Never Smoker Smokeless Tobacco: Never Used Drinks/Week oz/Week Comments Alcohol Use No Sex Assigned at Date Recorded Not on file Industry Job Start Date Occupation Not on file Not on file Not on file Travel End Travel History Travel Start No recent travel history available. documented as of this encounter Progress Notes * Aria Alcantar RN - 06/04/2015 12:56 PM TONNAGE COMPILATION CLERK Request for the following medical records for purpose of continuity of care: Has an appointment with MPE on 06/05/2015 Please send most recent OV note, EKG and lab results. Please include ECHO, stress test, Holter monitor results with ECG strips and any other cardiac information / testing if available. Please Fax to: [facility] - [phone] Dr. Trejo Attention: Alisha C., RN Thank you AGE COMPILATION CLERK documented in this encounter Plan of Treatment Not on filedocumented as of this encounter Procedures Comments Procedure Name Priority Date/Time Associated Diagnosis THYROID STIMULATING Routine 04/02/2015 HORMONE-TSH FREE T4 (FREE THYROXINE) Routine 04/02/2015 ONLY documented in this encounter Results * FREE T4 (FREE THYROXINE) ONLY (04/02/2015) T4-Free 1.23 (A) 1.12 OTHER OUTSIDE LAB Specimen Blood - Blood Narrative Performed At Labs entered for historical purposes. OTHER OUTSIDE LAB Thyroid being managed by PCP with plan to recheck in June 2015. Performing Organization Address [facility]/State[facility] Phone Number OTHER OUTSIDE LAB * THYROID STIMULATING HORMONE-TSH (04/02/2015) TSH 5.95 (A) 4.67 OTHER OUTSIDE LAB Specimen Blood - Blood Narrative Performed At Labs entered for historical purposes, thyroid is being managed by OTHER OUTSIDE LAB PCP. Plan to recheck labs in June 2015. Performing Organization Address City/State/Zipcode Phone Number OTHER OUTSIDE LAB documented in this encounter Visit Diagnoses Not on filedocumented in this encounter
--- OUTSIDE RECORDS SUMMARY | 2018-12-05 14:34 | XMS REPORT | Encounter Summary ---
Author Author [facility] Organization [facility] Address Unknown Phone Unavailable Care Team Providers Care Salvage Winder And Inspector Name Role Phone Dorian Muse MD Unavailable Dagmar Lopes MD PCP Ernesto Sosa MD 100 Melvin Monterroso MD Unavailable Unavailable Dana [place] RN Unavailable Unavailable Severiano Daniel DO Unavailable Reason for Visit * Reason Comments Cardiac Eval 6 mos f/u Encounter Details Care Team Description Date Type Department Marty Trejo MD [address] [id number] Cardiac Eval (6 mos f/u ) 06/05/2015 Office Visit [facility] [address] [id number] Social History Date Tobacco Use Types Packs/Day [...] Signs Reading Time Taken Comments Vital Sign 120/80 06/05/2015 1:01 PM INORGANIC CHEMIST Blood Pressure 75 06/05/2015 1:01 PM INORGANIC CHEMIST Pulse - - Temperature - - Respiratory Rate - - Oxygen Saturation - - Inhaled Oxygen Concentration 85.4 kg (188 lb 3.2 oz) 06/05/2015 1:01 PM INORGANIC CHEMIST Weight 167.6 cm (5' 5.98") 06/05/2015 1:01 PM INORGANIC CHEMIST Height 30.39 06/05/2015 1:01 PM INORGANIC CHEMIST Body Mass Index documented in this encounter Patient Instructions * Patient Instructions* Aria Alcantar RN - 06/05/2015 1:53 PM INORGANIC CHEMIST 1.) Request for Dr. Gruber to complete stress testing prior to surgery. If you can not have the testing completed in [place] prior to surgery - call one of Livan Trejo's nurses to request the testing to be completed at [facility] office. 2.) Prior to surgery on July 02 - your last dose will be in the evening on June 29. You will send in a remote transmission on June 30. After that transmission is reviewed, it will be determined the further course for anticoagulation prior to your surgery. Plan to resume Pradaxa CODY per your surgeon post procedure. 3.) You have a remote transmission scheduled on 09/04/15 - please call the offi ce on 09/05/15 for the results. Depending on the results, will determine your A miodarone dosing. 4.) You will receive a letter when is time to schedule your six month appointme nt. GANIC CHEMIST documented in this encounter Progress Notes * Marty Trejo MD - 06/05/2015 1:06 PM INORGANIC CHEMIST Date of Service: 06/05/2015 Faiza Nation is a 80 y.o. female. HPI I had the pleasure of seeing your patient Faiza Nation for Electrophysiolgy C onsultation in the [facility] as a part of the [facility] office today regarding her pre-op Rotator cuff surgery an d AFIB. She is typically followed by Dr. Gruber, her primary rn cvor, in [place], [place]. Her PMHx briefly includes: Paroxysmal AFIB, HTN, SN Dysfunction prompting Medtro graeme DDDR PPM implantation on October 18, 2011 programmed AAIR - DDDR with markedly pr olonged First Degree AV Block up to 410 ms during A-only pacing, Prior Reveal IL R implant removed at time of PPM, Myxomatous Mitral Valve disease, Hypothyroidis m, Hyperlipidemia, PUD, Hiatal Hernia and Dementia. She apparently has had a GI bleed in the past on Warfarin. For Sxs of recurrent LHedness and palpitations she underwent Reveal ILR implant by Dr. Gruber ~2010. The ILR documented AIFB and some Bradycardia/pauses. She was therefore referred and evaluated by Dr. Sosa. 2011, She was originally seen by Dr. Sosa for PAFIB with frequent Sxic pauses. A Medtronic DDDR-PPM was implanted and she was initiated on Sotalol for her AFIB . Dr. Gruber followed her going forward. 2012 she developed CP and underwent a stress test, echocardiogram and a cardiac catheterization at an outside Hospital. Stress test showed no ischemia with an E F of 65 percent. Echocardiogram showed an EF of 70 percent with LA size of 4.3 c m and myxomatous mitral valve degeneration. Her septal and posterior wall thickn ess was 1 cm. Cardiac cath was done in 12/2012, which showed mid LAD 30 percent lesion and RCA of 40 percent to 50 percent with diffuse plaques. 06/2013, again referred for EP consultation for recurrent Tachypalpitations and i ncreased AFIB burden. At that time we initiated Anticoagulation and reinitiated Metoprolol. We also in creased her PPM LRL to 70 ppm. We planned to switch to Amiodarone if she continu ed to have frequent AFIB. 09/2013 OV, She had Sxs concerning for possible TIA. She underwent a head CT in [facility] which was reportedly normal. Her digoxin level was elevated and her dos ing was changed to every other day. Also, at that OV, her Device interrogation demonstrated that she had been a few episodes of short-lasting episodes of AFib. At that visit we chose to continue h er on her Sotalol and Pradaxa. October 2014 Ms Nation complained of symptoms of feeling weak and tachypalpitations , short of breath, etc. We asked her to send the [facility] download. The [facility] nk download demonstrated that she was having persistent AFib. She had been on s otalol and Pradaxa. She had been compliant with Pradaxa, and, therefore, the sotalol was discontinue d, and after washout she was initiated on amiodarone. October 2014 amiodarone initiated -- by November her AF burden was decreasing. Since , it had dramatically dropped. She also apparently, earlier this month, had symptoms of chest discomfort for wh ich she presented at a local emergency room in [place], [place]. Her evaluatio n apparently was unremarkable. She followed up with Dr. Nieves office. The [facility] recommended a Lexiscan stress imaging study, but the patient/fam rancho refused. IN FOLLOWUP TODAY SHE STATES SHE HAS CONTINUED TO HAVE SOME INTERMITTENT CHEST D ISCOMFORT. In fact, she had an episode this past Monday while leaving mormonism w ith a tightness and pain across her anterior chest. She states it lasted up to 5-10 minutes. She has also had some symptoms of intermittent palpitations and feeling short of breath when she has those. Those have decreased in frequency. She denies any near syncope or syncope. Her ECG today documents an AV-paced rhythm. Device interrogation today demonstrates 96% atrial paced and 97% ventricular pac ed. She has had thousands of episodes of AFib since our office visit in September; however, since February her AF burden has been dramatically low. Also her vent ricular rate is 95% of the time less than 100 BPM when she is in AFib. She has had no high ventricular rate events. Assessment and Plan: 1. PREOP EVALUATION FOR UPCOMING ROTATOR CUFF SURGERY ON JULY 02, 2015: At t his point with continued chest pain, I concur with Dr. Nieves office that I woul d pursue a stress imaging study. I would do that before she undergoes her surge ry. She will contact Dr. Nieves office to make that happen. If they have diffi culty getting that scheduled in the next 3 weeks, then we will try and arrange f or it in our [place] office, so that we have the result before her surgery . That way she will not need to cancel her surgery. Of note she had a cardiac catheterization May 2014, so approximately a year ago, which showed mid LAD 30% stenosis, RCA 40% to 50% stenosis and diffuse plaquing otherwise. I would recommend stopping her Pradaxa 2 days prior to her surgery. I would do a Temporal Power nk download at that time to ensure she is not in persistent AFib or just been re cently in persistent AFib within the last few days. If she is in AFib or had it recently within the last few days for any prolonged period of time, i.e. greater than 24 hours, then I would bridge her with Lovenox leading up to surgery with the last dose of Lovenox the night before surgery. If, however, she has been d oing well with sinus rhythm, then I would not bridge her with Lovenox. She does have a CHADS-VASc score of 4. We discussed all the issues surrounding that, the implications, the potential need for Lovenox bridging, etc. Both she and her daughter, after about 45 minutes just talking about this topic, seemed to 'come around' to this plan. Otherwise they had no intention of doing any bridging ant icoagulation. 2. PAFIB: She has had dramatic improvement on amiodarone. We will continue her amiodarone at 400 mg a day especially through the holidays and through her surg isaac. She has a scheduled [facility] download on September 04, 2015. She will contact us the day after that, and if she has had a low AFib burden, we will decrease h er amiodarone to 200 mg daily at that time. 3. NSVT: She has had no recurrences. 4. Chest pains: As noted above stress test pending. 5. Anticoagulation: See comments above under preop rotator cuff surgery. 6. Medtronic DDDR permanent pacemaker: Device is functioning well, no changes at t his time. 7. Hypertension: Under good control. I spent well over an hour to an hour and a half just in dialogue regarding her c hest pain, recommendations for stress imaging, the rationale for that, preop ranjit luation and plan for anticoagulation preoperatively as well with the patient and her family. At this point, everyone seems to be satisfied with the plan and in agreement. I appreciate the opportunity to participate in the care of your pat ient. ([id number]) Ms. Nation was educated regarding plan of [...] her follow-up with me in 6 month(s) . Filed Vitals: 06/05/15 1301 BP: 120/80 Pulse: 75 Height: 1.676 m (5' 5.98") Weight: 85.367 kg (188 lb 3.2 oz) Body mass index is 30.39 kg/(m^2). Past Medical History Patient Active Problem [...] by Dr. Sheila Saldivar. Sotalol initiation 10-18-11 Hypertension Hyperlipidemia 09/14/2011 Lipid Profile: Cholesterol: 171, Triglyceride: 132, HDL: 39, LDL: 10 6 Paroxysmal atrial fibrillation Hx of brief AF, CHADS score 2, ASA Hypothyroidism Dementia Anxiety Near syncope 09/16/2011 09/14/11 hospital admission to [facility] in [place], [place]. Reveal device [id number] implanted by Allyn Petit MD. Cardiac device in situ, other 08/18/2011 09/16/11 Reveal device 9529, Medtronic. Review of Systems Constitution: Positive for weakness and malaise/fatigue. HENT: Positive for headaches, stridor and tinnitus. Eyes: Negative. Cardiovascular: Positive for chest pain, dyspnea on exertion and palpitations. Endocrine: Negative. Hematologic/Lymphatic: Negative. Skin: Negative. Musculoskeletal: Positive for arthritis, back pain, joint pain, muscle cramps, m uscle weakness, myalgias, neck pain and stiffness. Gastrointestinal: Positive for heartburn, hemorrhoids and nausea. Genitourinary: Negative. Neurological: Positive for tremors. Psychiatric/Behavioral: Negative. Allergic/Immunologic: Negative. Physical Exam Constitutional: She is in no acute distress, resting comfortably. Skin/Integument: Warm and dry Neuro: Patient is alert and oriented to person, place, and time. HEENT: Head is Normocephalic, PERRL, sclera are non-icteric and no xanthelasmas noted. Mouth/Throat shows the Oropharynx is clear and moist. Respiratory-Pulmonary/Chest: Effort normal and breath sounds normal. No respira tory distress. Clear to auscultation bilaterally. Cardiovascular: No evidence of increased jugular venous pressure, carotids are 2+/4+ equal bilaterally, without obvious bruit. Regular rhythm, S1, S2. 2/6 sy stolic murmur noted at the LSB. No heaves, thrills or rubs. Extremities: without significant peripheral edema. Device Site: is in her left infraclavicular region and well-healed. Problems Addressed Today Encounter Diagnoses Name Primary? Bradycardia Paroxysmal atrial fibrillation Cardiac device in situ, other Current Medications (including today's revisions) alprazolam (XANAX) 0.25 mg tablet Take 0.25 mg by mouth twice daily as neede d. amiodarone (CORDARONE) 200 mg tablet Take 2 Tabs by mouth daily. amLODIPine (NORVASC) 5 [...] 10 mg by mouth At Bedtime Daily. furosemide (LASIX) 40 mg tablet Take 40 [...] Use 200 mg as directed as Needed. Lindsay-3 Acid Ethyl Esters (LOVAZA) 1 gram cap Take 1 Cap by mouth four times daily. omeprazole DR(+) (PRILOSEC) 40 mg capsule Take 40 mg by mouth daily. ondansetron (ZOFRAN) 4 mg tablet Take 4 mg by mouth every 12 hours as needed for Nausea or Vomiting. potassium chloride SR (K-DUR) 20 mEq tablet Take 20 mEq by mouth daily. sertraline (ZOLOFT) 50 mg tablet Take 50 mg by mouth daily. sucralfate (CARAFATE) 1 gram tablet Take 1 g by mouth every 6 hours as neede d. topiramate (TOPAMAX) 25 mg tablet Take 25 mg by mouth twice daily. traMADol (ULTRAM) 50 mg tablet Take 50 mg by mouth every 6 hours as needed. GANIC CHEMIST documented in this encounter Plan of Treatment Order Schedule Name Type Priority Associated Diagnoses Ordered: 06/05/2015 ECG 12-LEAD ECG Routine Bradycardia Paroxysmal atrial fibrillation documented as of this encounter Results * DEVICE EVALUATION - PPM (12/31/2015 10:39 AM CDT) Generator OTHER OUTSIDE Assembler Production Line LAB Other Generator Model REVO MRI RVDR01 OTHER OUTSIDE # LAB Generator [id number] OTHER OUTSIDE Serial # LAB Generator 10/18/2011 [...] Research OTHER OUTSIDE Comments 2 LAB FÉLIX/EOL CREDIT ADMINISTRATION OFFICER=2.81V OTHER OUTSIDE Indicator LAB Generator Medtronic OTHER OUTSIDE Assembler Production Line LAB Generator No OTHER OUTSIDE Investigational LAB Wireless No OTHER OUTSIDE Generator LAB Device Type DDD-PM OTHER OUTSIDE LAB Other Implant OTHER OUTSIDE Info LAB Atrial Lead OTHER OUTSIDE Assembler Production Line LAB Other Atrial Lead CAPSUREFIX MRI SURESCAN OTHER OUTSIDE Model # 5086-52cm LAB Atrial Lead [id number] OTHER OUTSIDE Serial # LAB Atrial Lead 10/18/2011 OTHER OUTSIDE Implant Date LAB Atrial Lead OTHER OUTSIDE Location Other LAB Atrial Lead OTHER OUTSIDE Polarity Other LAB Atrial Lead 10 OTHER OUTSIDE Diaph. LAB Stimulation Atrial Lead Medtronic OTHER OUTSIDE Assembler Production Line LAB Atrial Lead No OTHER OUTSIDE Investigational LAB Atrial Lead active fixation OTHER OUTSIDE Fixation LAB Atrial Lead right atrial appendage OTHER OUTSIDE Location LAB Atrial Lead Pin IS1 OTHER OUTSIDE Connector LAB Atrial Lead Bipolar OTHER OUTSIDE Polarity LAB RV Lead OTHER OUTSIDE Assembler Production Line LAB Other RV Lead Model # CAPSUREFIX MRI SURESCAN OTHER OUTSIDE 5086-58cm LAB RV Lead Serial [id number] OTHER OUTSIDE # LAB RV Lead Implant 10/18/2011 OTHER OUTSIDE Date LAB RV Lead OTHER OUTSIDE Location Other LAB RV Lead Diaph. 10 OTHER OUTSIDE Stimulation LAB RV Lead Medtronic OTHER OUTSIDE Assembler Production Line LAB RV Lead No OTHER OUTSIDE Investigational LAB RV Lead active fixation OTHER OUTSIDE Fixation LAB RV Lead RV low septum OTHER OUTSIDE Location LAB RV Lead Pin IS1 OTHER OUTSIDE Connector ICD LAB RV Lead Coil OTHER OUTSIDE LAB LV Lead OTHER OUTSIDE Assembler Production Line LAB Other LV Lead Model # OTHER OUTSIDE LAB LV Lead Serial OTHER OUTSIDE # LAB LV Lead Implant OTHER OUTSIDE Date LAB LV Lead OTHER OUTSIDE Location Other LAB LV Lead OTHER OUTSIDE Polarity Other LAB LV Lead OTHER OUTSIDE Configuration LAB Other LV Lead OTHER OUTSIDE Assembler Production Line LAB LV Lead OTHER OUTSIDE Investigational LAB [...] remote LAB transmission AT/AF Daily OTHER OUTSIDE [place] Hours LAB Average Vent OTHER OUTSIDE Rate during LAB AT/AF #BPM Average Vent OTHER OUTSIDE Rate During LAB AT/AF #Hours Remote Yes OTHER OUTSIDE Monitoring? LAB Daily [place] OTHER OUTSIDE Threshld Alert? LAB Average OTHER OUTSIDE Venticular Rate LAB AT/AF On/Off VF OTHER OUTSIDE Detection/Thera LAB py Off EP Device Dr. Trejo OTHER OUTSIDE Followed by LAB Name EP Device MAC OTHER OUTSIDE Followed By LAB Device OTHER OUTSIDE [facility] LAB Transmitter Device [facility] OTHER OUTSIDE [facility] LAB Transmitter Compatible # Mode S. OTHER [...] Initial Rhythm 75bpm OTHER OUTSIDE LAB Underlying [id number] with GA ~350ms, (gets OTHER OUTSIDE Rhythm longer and blocks with faster LAB AP) -VS% <0.1 OTHER OUTSIDE LAB -DROP FORGER% 0.2 OTHER OUTSIDE LAB -VS% 3.2 OTHER OUTSIDE LAB AP-DROP FORGER% 96.6 OTHER OUTSIDE LAB Initial Rhythm AP-DROP FORGER OTHER OUTSIDE LAB Device Function Yes OTHER [...] fibrillation (HCC) Atrial fibrillation Cardiac device in situ, other Other specified cardiac device in situ documented in this encounter
--- OUTSIDE RECORDS SUMMARY | 2018-12-05 14:34 | XMS REPORT | Encounter Summary ---
Author Author [facility] Organization [facility] Address Unknown Phone Unavailable Care Team Providers Care Gas Roller Operator Name Role Phone Dorian Muse MD Unavailable Dagmar Lopes MD PCP Ernesto Sosa MD 100 Melvin Monterroso MD Unavailable Unavailable Dana [place] RN Unavailable Unavailable Severiano Daniel DO Unavailable Encounter Details Care Team Description Date Type Department Marty Trejo MD [address] [facility] [address] [place], [place] [phone] 06/05/2015 [facility] 4000 [facility] [id number] [place] [address] Social History Date Tobacco Use Types Packs/Day [...] as 0 directed as Needed. 04/11/2012 05/04/2018 Pioneer-3 Acid Ethyl Esters Take 1 Cap by [...] Associated Diagnosis DEVICE EVALUATION - PPM Routine 06/05/2015 Bradycardia 12:30 PM SURVEY ANALYST Paroxysmal atrial fibrillation Cardiac device in situ, other documented in this encounter Results * DEVICE EVALUATION - PPM (06/05/2015 12:30 PM SURVEY ANALYST) Generator OTHER OUTSIDE Hospital Technician LAB Other Generator Model REVO MRI RVDR01 OTHER OUTSIDE # LAB Generator [id number] OTHER OUTSIDE Serial # LAB Generator 10/18/2011 [...] Research OTHER OUTSIDE Comments 2 LAB FÉLIX/EOL DIRECTOR OF SEARCH ENGINE MARKETING=2.81V OTHER OUTSIDE Indicator LAB Generator Medtronic OTHER OUTSIDE Hospital Technician LAB Generator No OTHER OUTSIDE Investigational LAB Wireless No OTHER OUTSIDE Generator LAB Device Type DDD-PM OTHER OUTSIDE LAB Other Implant OTHER OUTSIDE Info LAB Atrial Lead OTHER OUTSIDE Hospital Technician LAB Other Atrial Lead CAPSUREFIX MRI SURESCAN OTHER OUTSIDE Model # 5086-52cm LAB Atrial Lead [id number] OTHER OUTSIDE Serial # LAB Atrial Lead 10/18/2011 OTHER OUTSIDE Implant Date LAB Atrial Lead OTHER OUTSIDE Location Other LAB Atrial Lead OTHER OUTSIDE Polarity Other LAB Atrial Lead 10 OTHER OUTSIDE Diaph. LAB Stimulation Atrial Lead Medtronic OTHER OUTSIDE Hospital Technician LAB Atrial Lead No OTHER OUTSIDE Investigational LAB Atrial Lead active fixation OTHER OUTSIDE Fixation LAB Atrial Lead right atrial appendage OTHER OUTSIDE Location LAB Atrial Lead Pin IS1 OTHER OUTSIDE Connector LAB Atrial Lead Bipolar OTHER OUTSIDE Polarity LAB RV Lead OTHER OUTSIDE Hospital Technician LAB Other RV Lead Model # CAPSUREFIX MRI SURESCAN OTHER OUTSIDE 5086-58cm LAB RV Lead Serial [id number] OTHER OUTSIDE # LAB RV Lead Implant 10/18/2011 OTHER OUTSIDE Date LAB RV Lead OTHER OUTSIDE Location Other LAB RV Lead Diaph. 10 OTHER OUTSIDE Stimulation LAB RV Lead Medtronic OTHER OUTSIDE Hospital Technician LAB RV Lead No OTHER OUTSIDE Investigational LAB RV Lead active fixation OTHER OUTSIDE Fixation LAB RV Lead RV low septum OTHER OUTSIDE Location LAB RV Lead Pin IS1 OTHER OUTSIDE Connector ICD LAB RV Lead Coil OTHER OUTSIDE LAB LV Lead OTHER OUTSIDE Hospital Technician LAB Other LV Lead Model # OTHER OUTSIDE LAB LV Lead Serial OTHER OUTSIDE # LAB LV Lead Implant OTHER OUTSIDE Date LAB LV Lead OTHER OUTSIDE Location Other LAB LV Lead OTHER OUTSIDE Polarity Other LAB LV Lead OTHER OUTSIDE Configuration LAB Other LV Lead OTHER OUTSIDE Hospital Technician LAB LV Lead OTHER OUTSIDE Investigational LAB [...] remote LAB transmission AT/AF Daily OTHER OUTSIDE [place] Hours LAB Average Vent OTHER OUTSIDE Rate during LAB AT/AF #BPM Average Vent OTHER OUTSIDE Rate During LAB AT/AF #Hours Remote Yes OTHER OUTSIDE Monitoring? LAB Daily [place] OTHER OUTSIDE Threshld Alert? LAB Average OTHER OUTSIDE Venticular Rate LAB AT/AF On/Off VF OTHER OUTSIDE Detection/Thera LAB py Off EP Device Dr. Trejo OTHER OUTSIDE Followed by LAB Name EP Device MAC OTHER OUTSIDE Followed By LAB # Mode S. monitored 102 (since 01/20 OTHER OUTSIDE Events remote) 1592 total since September # High AT/AF treated 205 (since 01/20 remote) OTHER OUTSIDE Evts 1645 total since September LAB # High V Events 0 OTHER OUTSIDE LAB Time in AT/AF 4.5% since September OTHER OUTSIDE LAB V Rate in AT/AF well controlled OTHER OUTSIDE LAB Single PVSc 2.4/hr OTHER OUTSIDE LAB PVC runs 0.6/hr OTHER OUTSIDE LAB Battery Voltage 2.99 OTHER OUTSIDE LAB Estimated OTHER OUTSIDE Longevity LAB Magent Rate OTHER OUTSIDE LAB A Sense mv 3.2 OTHER OUTSIDE LAB A Lead ohms 248 OTHER OUTSIDE LAB A Capture V 1.0 OTHER OUTSIDE LAB A Capture ms 0.4 OTHER OUTSIDE LAB Ao Voltage 2.0 OTHER OUTSIDE LAB AO Pulse Width 0.4 OTHER OUTSIDE LAB RV Sense mv 19.7 OTHER OUTSIDE LAB RV Lead ohms 520 OTHER OUTSIDE LAB RV Capture V 1.0 [...] to Disc No OTHER OUTSIDE LAB Device OTHER OUTSIDE Reprogram LAB Comments Initial Rhythm AP-HAT BODY SORTER OTHER OUTSIDE LAB Underlying SB in the 50s with 1'AVB VIKAS OTHER OUTSIDE Rhythm around 360-380 ms LAB -VS% <0.1 OTHER OUTSIDE LAB -HAT BODY SORTER% 4.5 OTHER OUTSIDE LAB -VS% 2.7 OTHER OUTSIDE LAB AP-HAT BODY SORTER% 92.8 OTHER OUTSIDE LAB Initial Rhythm OTHER OUTSIDE LAB Device Function Yes OTHER OUTSIDE WNL LAB Device Yes OTHER OUTSIDE Reprogram LAB Programming? Yes OTHER OUTSIDE LAB Interrogation? Yes OTHER OUTSIDE LAB Device Check by OTHER OUTSIDE Rep LAB Remote Check? No OTHER OUTSIDE LAB Specimen Narrative Performed At Dual chamber pacemaker programming.Device function appears normal. OTHER OUTSIDE LAB Events noted since the last remote documented 01/20/15: Atrial:102 monitored episodes, 205 treated episodes.The log book shows the most recent event was singular on 05/14 for 43 secs.Some other short events were noted in Nov lasting under 1 mins each.The AT/AF graphic trends shows a significant decrease in atrial events in the last 3 months. Ventricular:none Changes made to programming:none [facility] remote monitoring is in place. Will continue to monitor. Performing Organization Address City/State/Zipcode Phone Number OTHER OUTSIDE LAB documented in this encounter Visit Diagnoses Diagnosis Bradycardia Other specified cardiac dysrhythmias Paroxysmal atrial fibrillation (HCC) Atrial fibrillation Cardiac device in situ, other Other specified cardiac device in situ documented in this encounter
--- OUTSIDE RECORDS SUMMARY | 2018-12-05 14:35 | XMS REPORT | Encounter Summary ---
Author Author [facility] Organization [facility] Address Unknown Phone Unavailable Care Team Providers Care Barrel Scraper Name Role Phone Dorian Muse MD Unavailable Dagmar Lopes MD PCP Ernesto Sosa MD 100 Melvin Monterroso MD Unavailable Unavailable Dana [place] RN Unavailable Unavailable Severiano Daniel DO Unavailable Reason for Visit * Reason Comments Shortness of Breath Daughter taking her mom to ER in [facility] Encounter Details Care Team Description Date Type Department Paulette Fallon RN Shortness of Breath (Daughter taking her mom to ER in [facility]) 10/22/2014 Telephone [facility] [place] [address] [place] [address] Social History Date Tobacco Use [...] encounter Miscellaneous Notes * Telephone Encounter - Paulette Fallon RN - 10/22/2014 4:33 PM CDT 10/22 I received a VM on the triage line from Dipika, Mrs Nation's daughter. I returned her call and she was wanting to know if she should tell the ER staff an ything. She said her mom was having a lot of trouble breathing so she just took her to the ER. I told he she did the right thing. I requested the ER fax numb er and I faxed the last office note to [phone]. She was also asking about getting an order for a pulmonary function test sent. I explained to her that we would not want to do that test until her breathing is improved. She acknowled ged understanding. DR documented in this encounter Plan of Treatment Not on filedocumented as of this encounter Visit Diagnoses Not on filedocumented in this encounter
--- OUTSIDE RECORDS SUMMARY | 2018-12-05 14:35 | XMS REPORT | Encounter Summary ---
Author Author [facility] Organization [facility] Address Unknown Phone Unavailable Care Team Providers Care Contract Associate Manager Name Role Phone Dorian Muse MD Unavailable Dagmar Lopes MD PCP Ernesto Sosa MD [address] MD Unavailable Unavailable Dana Birmingham RN Unavailable Unavailable Severiano Daniel DO Unavailable Encounter Details Care Team Description Date Type Department Marty Trejo MD [address] [facility] [id number] [place] [address] [phone] 01/20/2015 Hospital Cardiovascular Medicine Encounter Remote Device Check [phone] Social History Date Tobacco Use Types Packs/Day [...] tablet by mouth twice daily as needed. dabigatran (PRADAXA) 150 Take 150 mg 0 mg capsule by mouth twice daily. 07/08/2013 digoxin (LANOXIN) 125 mcg Take 1 Tab by 90 Tab 0 tablet mouth every 48 hours. donepezil (ARICEPT) 10 mg Take 10 mg by 0 tablet mouth At Bedtime Daily. furosemide (LASIX) 40 mg Take 40 mg by 0 tablet mouth daily. losartan (COZAAR) 100 mg Take 100 [...] 2.5 mg 0 tablet by mouth daily. 04/10/2012 04/06/2015 amLODIPine (NORVASC) 5 mg Take 1 Tab by 90 Tab 1 tablet mouth daily. 06/05/2015 busPIRone (BUSPAR) 10 mg Take 15 mg by 0 tablet mouth twice daily. 05/18/2017 Calcium Carbonate-Vitamin Take 1 Tab [...] as 0 directed as Needed. 04/11/2012 05/04/2018 [place]-3 Acid Ethyl Esters Take 1 Cap by 360 Cap 2 (LOVAZA) 1 gram cap mouth four times daily. 12/31/[address](+) Take 40 mg by 0 (PRILOSEC) 40 mg capsule mouth daily. 05/04/2018 traMADol (ULTRAM) 50 mg Take 50 mg by 0 tablet mouth every 6 hours as needed. documented as of this encounter Plan of Treatment Not on filedocumented as of this encounter Procedures Comments Procedure Name Priority Date/Time Associated Diagnosis DEVICE EVALUATION - Routine 01/20/2015 Paroxysmal atrial REMOTE PPM 3:37 PM CDT fibrillation documented in this encounter Results * DEVICE EVALUATION - REMOTE PPM (01/20/2015 3:37 PM CDT) Generator OTHER OUTSIDE Pilot LAB Other Generator Model REVO MRI [id number] OTHER OUTSIDE # LAB Generator [id number] OTHER OUTSIDE Serial # LAB Generator 10/18/2011 [...] Research OTHER OUTSIDE Comments 2 LAB FÉLIX/EOL PRENATAL GENETIC COUNSELOR=2.81V OTHER OUTSIDE Indicator LAB Generator Medtronic OTHER OUTSIDE Pilot LAB Generator No OTHER OUTSIDE Investigational LAB Wireless No OTHER OUTSIDE Generator LAB Device Type DDD-PM OTHER OUTSIDE LAB Other Implant OTHER OUTSIDE Info LAB Atrial Lead OTHER OUTSIDE Pilot LAB Other Atrial Lead CAPSUREFIX MRI SURESCAN OTHER OUTSIDE Model # 5086-52cm LAB Atrial Lead [id number] OTHER OUTSIDE Serial # LAB Atrial Lead 10/18/2011 OTHER OUTSIDE Implant Date LAB Atrial Lead OTHER OUTSIDE Location Other LAB Atrial Lead OTHER OUTSIDE Polarity Other LAB Atrial Lead 10 OTHER OUTSIDE Diaph. LAB Stimulation Atrial Lead Medtronic OTHER OUTSIDE Pilot LAB Atrial Lead No OTHER OUTSIDE Investigational LAB Atrial Lead active fixation OTHER OUTSIDE Fixation LAB Atrial Lead right atrial appendage OTHER OUTSIDE Location LAB Atrial Lead Pin IS1 OTHER OUTSIDE Connector LAB Atrial Lead Bipolar OTHER OUTSIDE Polarity LAB RV Lead OTHER OUTSIDE Pilot LAB Other RV Lead Model # CAPSUREFIX MRI SURESCAN OTHER OUTSIDE 5086-58cm LAB RV Lead Serial [id number] OTHER OUTSIDE # LAB RV Lead Implant 10/18/2011 OTHER OUTSIDE Date LAB RV Lead OTHER OUTSIDE Location Other LAB RV Lead Diaph. 10 OTHER OUTSIDE Stimulation LAB RV Lead Medtronic OTHER OUTSIDE Pilot LAB RV Lead No OTHER OUTSIDE Investigational LAB RV Lead active fixation OTHER OUTSIDE Fixation LAB RV Lead RV low septum OTHER OUTSIDE Location LAB RV Lead Pin IS1 OTHER OUTSIDE Connector ICD LAB RV Lead Coil OTHER OUTSIDE LAB LV Lead OTHER OUTSIDE Pilot LAB Other LV Lead Model # OTHER OUTSIDE LAB LV Lead Serial OTHER OUTSIDE # LAB LV Lead Implant OTHER OUTSIDE Date LAB LV Lead OTHER OUTSIDE Location Other LAB LV Lead OTHER OUTSIDE Polarity Other LAB LV Lead OTHER OUTSIDE Configuration LAB Other LV Lead OTHER OUTSIDE Pilot LAB LV Lead OTHER OUTSIDE Investigational LAB [...] OTHER OUTSIDE Dependant LAB Date of Last 09/25/2014 OTHER OUTSIDE Programming LAB Next OTHER OUTSIDE Programming LAB Check Due Date of Last 09/25/2014 OTHER OUTSIDE Interrogation LAB Date of Last OTHER OUTSIDE ICM Evaluation LAB Next ICM Check OTHER OUTSIDE Due LAB HF Patient No OTHER OUTSIDE LAB Date of Last 01/20/15 OTHER OUTSIDE Remote Check LAB Next Remote OTHER OUTSIDE Check Due LAB Enrollment Date OTHER OUTSIDE LAB Date of OTHER OUTSIDE baseline remote LAB transmission AT/AF Daily OTHER OUTSIDE [place] Hours LAB Average Vent OTHER OUTSIDE Rate during LAB AT/AF #BPM Average Vent OTHER OUTSIDE Rate During LAB AT/AF #Hours Remote Yes OTHER OUTSIDE Monitoring? LAB Daily [place] OTHER OUTSIDE Threshld Alert? LAB Average OTHER OUTSIDE Venticular Rate LAB AT/AF On/Off VF OTHER OUTSIDE Detection/Thera LAB py Off Remote Check? Yes OTHER OUTSIDE LAB Specimen Narrative Performed At OTHER OUTSIDE LAB Scheduled remote dual chamber pacemaker interrogation via [employer] received . See attached report. Events noted: Atrial:1,131 treated AT/AF events, 1,059 monitored AT/AF events,7.6% burden, longest 27min.[place] graph and episode list shows multiple back to back events with Atrial ATP that is intermittently successful (78.6% success per device)EGMs look like ATach and Aflutter. V rates per histogram and episode list appear controlled Ventricular:none Will continue to monitor. Report to Dr. Trejo. [01/20/2015 3:49:10 PM - JYOTI KUMAR] Performing Organization Address City/State/Zipcode Phone Number OTHER OUTSIDE LAB documented in this encounter Visit Diagnoses Diagnosis Paroxysmal atrial fibrillation (HCC) Atrial fibrillation documented in this encounter
--- OUTSIDE RECORDS SUMMARY | 2018-12-05 14:35 | XMS REPORT | Encounter Summary ---
Author Author [facility] Organization [facility] Address Unknown Phone Unavailable Care Team Providers Care Lime Hide Inspector Name Role Phone Dorian Muse MD Unavailable Dagmar Lopes MD PCP Ernesto Sosa MD [address] MD Unavailable Unavailable Dana Birmingham RN Unavailable Unavailable Severiano Daniel DO Unavailable Reason for Visit * Reason Comments Patient Reminder Call Pt needs PFT done Encounter Details Care Team Description Date Type Department Jason Burgess RN Patient Reminder Call (Pt needs PFT done) 11/11/2014 Telephone The [address] [phone] Social History Date Tobacco Use Types Packs/Day [...] Telephone Encounter - Jason Burgess RN - 11/21/2014 9:11 AM CDT PFT results complete and scanned into chart. PFT WNL. DLCO: Pred: 20.2, BEST: 16 .4 %Pred: 81%. * Telephone Encounter - Jason Burgess RN - 11/17/2014 4:32 PM CDT Refaxed PFT req to [phone]. Pt updated. * Telephone Encounter - Jason Burgess RN - 11/12/2014 2:09 PM CDT Pt's daughter called back. Order for PFT mailed to pt and faxed to [facility] [place]. Pt will send results to our office when complete. * Telephone Encounter - Jason Burgess RN - 11/11/2014 3:45 PM CDT LMOM for pt to have PFT done for amiodarone baseline. documented in this encounter Plan of Treatment Order Schedule Name Type Priority Associated Diagnoses Ordered: 11/11/2014 PFT COMPLETE PULM PFT Routine Paroxysmal atrial FUNCTION fibrillation documented as of this encounter Visit Diagnoses Diagnosis Paroxysmal atrial fibrillation (HCC) - Primary Atrial fibrillation documented in this encounter
--- OUTSIDE RECORDS SUMMARY | 2018-12-05 14:35 | XMS REPORT | Encounter Summary ---
Author Author [facility] Organization [facility] Address Unknown Phone Unavailable Care Team Providers Care House Painter Helper Name Role Phone Dorian Muse MD Unavailable Dagmar Lopes MD PCP Ernesto Sosa MD [address] MD Unavailable Unavailable Dana Birmingham RN Unavailable Unavailable Severiano Daniel DO Unavailable Reason for Visit * Reason Comments Follow-up Phone Call See how pt is feeling since starting Amio Encounter Details Care Team Description Date Type Department Jason Burgess RN Follow-up Phone Call (See how pt is feeling since starting Amio) 12/17/2014 Telephone The [address] [place] [address] Social History Date Tobacco Use Types Packs/Day [...] Telephone Encounter - Jason Burgess RN - 12/17/2014 10:11 AM CDT Pt is feeling very good at this time and doing better since starting her Amiodar one. Pt stated, "This is the best that I felt in a long time." Will f/u with pt at next OV with MPE. documented in this encounter Plan of Treatment Not on filedocumented as of this encounter Visit Diagnoses Not on filedocumented in this encounter
--- OUTSIDE RECORDS SUMMARY | 2018-12-05 14:35 | XMS REPORT | Encounter Summary ---
Author Author [facility] Organization [facility] Address Unknown Phone Unavailable Care Team Providers Care Melter Clerk Name Role Phone Dorian Muse MD Unavailable Dagmar Lopes MD PCP Ernesto Sosa MD [address] MD Unavailable Unavailable Dana Birmingham RN Unavailable Unavailable Severiano Daniel DO Unavailable Reason for Referral * Test Referred By Contact Referred To Contact Status Reason Specialty Diagnoses / Procedures Marty Trejo MD [address] [place], [place] [phone] Marty Trejo MD [address] [place], [place] [phone] Closed Specialty Services Diagnoses Required Paroxysmal atrial fibrillation (HCC) Reason for Visit * Reason Comments Follow-up Phone Call Triage call- device transmission from Monday Encounter Details Care Team Description Date Type Department Gemma Faye RN Follow-up Phone Call (Triage call- device transmission from Monday) 10/20/2014 Telephone The [facility] [address] [phone] Social History Date Tobacco Use Types Packs/Day [...] encounter Miscellaneous Notes * Addendum Note - David Leon RN - 10/21/2014 1:40 PM CDT Addended by: DAVID LEON on: 10/21/2014 01:40 PM Modules accepted: Orders, Medications * Telephone Encounter - David Leon RN - 10/21/2014 12:51 PM CDT Reviewed with MPE. Pt needs to stop Sotalol at this time d/t increased AT/Afib. Pt will stop for 3 days, then start Amiodarone 400mg daily. Pt's daughter update d and medications updated. Pt will get PFT's baseline within the month for amiod arone testing. Baseline labs complete. Will get f/u labs in 6 months. * Telephone Encounter - Gemma Faye RN - 10/20/2014 4:49 PM CDT Pt's daughter, Dipika, called and left VM on Triage Line. Daughter requested call back with update on results from remote pacemaker transmission from Monday. Con tacted pt's daughter back and reviewed transmission results. Pt has been in AT/A F for 98% of the time. Pt is taking Pradaxa as scheduled. Advised pt's daughter we will follow up with Dr. Trejo/staff for a plan of care. Advised daughter, Dr. Trejo is in the EP lab today and clinic tomorrow ([facility]) and she would hear recom mendations sometime tomorrow. Daughter agreeable with plan. Daughter reported sh shanelle has her cell phone on at all times but will be in physical therapy from -12 tomorrow. She will leave phone with brother in law during this time frame. Msg r outed to Dr. Trejo's nurse. documented in this encounter Plan of Treatment Not on filedocumented as of this encounter Visit Diagnoses Diagnosis Paroxysmal atrial fibrillation (HCC) - Primary Atrial fibrillation documented in this encounter
--- OUTSIDE RECORDS SUMMARY | 2018-12-05 14:36 | XMS REPORT | Encounter Summary ---
Author Author [facility] Organization [facility] Address Unknown Phone Unavailable Care Team Providers Care Community Health Educator Name Role Phone Dorian Muse MD Unavailable Dagmar Lopes MD PCP Ernesto Sosa MD [address] MD Unavailable Unavailable Dana Birmingham RN Unavailable Unavailable Severiano Daniel DO Unavailable Encounter Details Care Team Description Date Type Department Marty Trejo MD [address] [facility] [address] [place] [address] [phone] 10/20/2014 Hospital Cardiovascular Medicine Encounter Remote Device Check [phone] Social History Date Tobacco Use Types Packs/Day [...] as 0 directed as Needed. 04/11/2012 05/04/2018 [place]-3 Acid Ethyl Esters Take 1 Cap by 360 Cap 2 (LOVAZA) 1 gram cap mouth four times daily. 12/31/[address](+) Take 40 mg by 0 (PRILOSEC) 40 mg capsule mouth daily. 02/04/2013 10/21/2014 sotalol AF (BETAPACE AF) Take 1 Tab by 180 Tab 0 120 mgIndications: mouth twice Paroxysmal atrial daily. fibrillation (HCC), Bradycardia 05/04/2018 traMADol (ULTRAM) 50 mg Take 50 mg by 0 tablet mouth every 6 hours as needed. documented as of this encounter Plan of Treatment Not on filedocumented as of this encounter Procedures Comments Procedure Name Priority Date/Time Associated Diagnosis DEVICE EVALUATION - Routine 10/20/2014 Cardiac pacemaker in situ REMOTE PPM 10:02 AM CDT documented in this encounter Results * DEVICE EVALUATION - REMOTE PPM (10/20/2014 10:02 AM CDT) Generator OTHER OUTSIDE Med Surg Nurse LAB Other Generator Model REVO MRI RVDR01 OTHER OUTSIDE # LAB Generator [id number] OTHER OUTSIDE Serial # LAB Generator 10/18/2011 [...] Research OTHER OUTSIDE Comments 2 LAB FÉLIX/EOL HOME AGENT=2.81V OTHER OUTSIDE Indicator LAB Generator Medtronic OTHER OUTSIDE Med Surg Nurse LAB Generator No OTHER OUTSIDE Investigational LAB Wireless No OTHER OUTSIDE Generator LAB Device Type DDD-PM OTHER OUTSIDE LAB Other Implant OTHER OUTSIDE Info LAB Atrial Lead OTHER OUTSIDE Med Surg Nurse LAB Other Atrial Lead CAPSUREFIX MRI SURESCAN OTHER OUTSIDE Model # 5086-52cm LAB Atrial Lead [id number] OTHER OUTSIDE Serial # LAB Atrial Lead 10/18/2011 OTHER OUTSIDE Implant Date LAB Atrial Lead OTHER OUTSIDE Location Other LAB Atrial Lead OTHER OUTSIDE Polarity Other LAB Atrial Lead 10 OTHER OUTSIDE Diaph. LAB Stimulation Atrial Lead Medtronic OTHER OUTSIDE Med Surg Nurse LAB Atrial Lead No OTHER OUTSIDE Investigational LAB Atrial Lead active fixation OTHER OUTSIDE Fixation LAB Atrial Lead right atrial appendage OTHER OUTSIDE Location LAB Atrial Lead Pin IS1 OTHER OUTSIDE Connector LAB Atrial Lead Bipolar OTHER OUTSIDE Polarity LAB RV Lead OTHER OUTSIDE Med Surg Nurse LAB Other RV Lead Model # CAPSUREFIX MRI SURESCAN OTHER OUTSIDE 5086-58cm LAB RV Lead Serial [id number] OTHER OUTSIDE # LAB RV Lead Implant 10/18/2011 OTHER OUTSIDE Date LAB RV Lead OTHER OUTSIDE Location Other LAB RV Lead Diaph. 10 OTHER OUTSIDE Stimulation LAB RV Lead Medtronic OTHER OUTSIDE Med Surg Nurse LAB RV Lead No OTHER OUTSIDE Investigational LAB RV Lead active fixation OTHER OUTSIDE Fixation LAB RV Lead RV low septum OTHER OUTSIDE Location LAB RV Lead Pin IS1 OTHER OUTSIDE Connector ICD LAB RV Lead Coil OTHER OUTSIDE LAB LV Lead OTHER OUTSIDE Med Surg Nurse LAB Other LV Lead Model # OTHER OUTSIDE LAB LV Lead Serial OTHER OUTSIDE # LAB LV Lead Implant OTHER OUTSIDE Date LAB LV Lead OTHER OUTSIDE Location Other LAB LV Lead OTHER OUTSIDE Polarity Other LAB LV Lead OTHER OUTSIDE Configuration LAB Other LV Lead OTHER OUTSIDE Med Surg Nurse LAB LV Lead OTHER OUTSIDE Investigational LAB [...] No OTHER OUTSIDE LAB Date of Last 07/09/14 OTHER OUTSIDE Remote Check LAB Next Remote 12/2014 OTHER OUTSIDE Check Due LAB Enrollment Date OTHER OUTSIDE LAB Date of OTHER OUTSIDE baseline remote LAB transmission AT/AF Daily OTHER OUTSIDE [place] Hours LAB Average Vent OTHER OUTSIDE Rate during LAB AT/AF #BPM Average Vent OTHER OUTSIDE Rate During LAB AT/AF #Hours Remote Yes OTHER OUTSIDE Monitoring? LAB Daily [place] OTHER OUTSIDE Threshld Alert? LAB Average OTHER OUTSIDE Venticular Rate LAB AT/AF On/Off VF OTHER OUTSIDE Detection/Thera LAB py Off Specimen Narrative Performed At OTHER OUTSIDE LAB 10/20/2014 - Carelink transmission received on 10/17/2014 - see phone note. Device function appears normal. Events noted: Atrial:431 monitored and 309 treated AT/AF events for 14.1% or 3.4 hrs/day.Available EGM's appear to show AF with V-rates: < 100 bpm about 98% of the time.Presenting rhythm at the time transmission was sent on 10/17/14 at 5:09pm shows AP-NEEDLE STRAIGHTENER. Ventricular:None. Please see scanned data sheets for further review.Pt is scheduled to follow up sometime in March 2015 with [facility]. EG Performing Organization Address City/State/Zipcode Phone Number OTHER OUTSIDE LAB documented in this encounter Visit Diagnoses Diagnosis Cardiac pacemaker in situ documented in this encounter
--- OUTSIDE RECORDS SUMMARY | 2018-12-05 14:36 | XMS REPORT | Encounter Summary ---
Author Author [facility] Organization [facility] Address Unknown Phone Unavailable Care Team Providers Care Network Account Manager Name Role Phone Dorian Muse MD Unavailable Dagmar Lopes MD PCP Ernesto Sosa MD [address] MD Unavailable Unavailable Dana Birmingham RN Unavailable Unavailable Severiano Daniel DO Unavailable Reason for Visit * Reason Comments Worsening Symptoms weakness Encounter Details Care Team Description Date Type Department Concha Sellers RN Worsening Symptoms (weakness) 10/17/2014 Telephone The [id number] [place] [address] Social History Date Tobacco Use Types Packs/Day [...] encounter Miscellaneous Notes * Telephone Encounter - Concha Sellers - 10/17/2014 4:52 PM CDT Patient's daughter states that she was shopping with her mom today and that her mother became very weak and chose to go out to the car to wait. She did not kno w any of her symptoms. Daughter will send a transmission. Calling patient now a t [phone]. The patient states that she got very weak and felt like her hear t was fluctuating in rate from very fast, to very slow and pounding. She has horvath d this happen before. I explained that I asked her daughter to send us a transmi ssion. She is relieved to know that we will be looking for that transmission. documented in this encounter Plan of Treatment Not on filedocumented as of this encounter Visit Diagnoses Not on filedocumented in this encounter
--- OUTSIDE RECORDS SUMMARY | 2018-12-05 14:37 | XMS REPORT | Encounter Summary ---
Author Author [facility] Organization [facility] Address Unknown Phone Unavailable Care Team Providers Care Criminal Justice Program Director Name Role Phone Dorian Muse MD Unavailable Dagmar Lopes MD PCP Ernesto Sosa MD [address] Melvin Monterroso MD Unavailable Unavailable Dana Birmingham RN Unavailable Unavailable Severiano Daniel DO Unavailable Encounter Details Care Team Description Date Type Department Marty Trejo MD [address] [facility] [place] [address] [phone] 09/25/2014 [facility] [id number] [place] [address] [address] [place] [address] Social History Date Tobacco Use Types Packs/Day [...] 0 gram tablet mouth at bedtime daily. 05/04/2018 amLODIPine (NORVASC) 5 mg Take [...] as 0 directed as Needed. 04/11/2012 05/04/2018 [place]-3 Acid Ethyl Esters Take 1 Cap by [...] Associated Diagnosis DEVICE EVALUATION - PPM Routine 09/25/2014 Bradycardia 12:54 PM CDT documented in this encounter Results * DEVICE EVALUATION - PPM (09/25/2014 12:54 PM CDT) Generator OTHER OUTSIDE Rules Examiner LAB Other Generator Model REVO MRI RVDR01 OTHER OUTSIDE # LAB Generator [id number] OTHER OUTSIDE Serial # LAB Generator 10/18/2011 [...] Research OTHER OUTSIDE Comments 2 LAB FÉLIX/EOL LAST PICKER=2.81V OTHER OUTSIDE Indicator LAB Generator Medtronic OTHER OUTSIDE Rules Examiner LAB Generator No OTHER OUTSIDE Investigational LAB Wireless No OTHER OUTSIDE Generator LAB Device Type DDD-PM OTHER OUTSIDE LAB Other Implant OTHER OUTSIDE Info LAB Atrial Lead OTHER OUTSIDE Rules Examiner LAB Other Atrial Lead CAPSUREFIX MRI SURESCAN OTHER OUTSIDE Model # 5086-52cm LAB Atrial Lead [id number] OTHER OUTSIDE Serial # LAB Atrial Lead 10/18/2011 OTHER OUTSIDE Implant Date LAB Atrial Lead OTHER OUTSIDE Location Other LAB Atrial Lead OTHER OUTSIDE Polarity Other LAB Atrial Lead 10 OTHER OUTSIDE [place]. LAB Stimulation Atrial Lead Medtronic OTHER OUTSIDE Rules Examiner LAB Atrial Lead No OTHER OUTSIDE Investigational LAB Atrial Lead active fixation OTHER OUTSIDE Fixation LAB Atrial Lead right atrial appendage OTHER OUTSIDE Location LAB Atrial Lead Pin IS1 OTHER OUTSIDE Connector LAB Atrial Lead Bipolar OTHER OUTSIDE Polarity LAB RV Lead OTHER OUTSIDE Rules Examiner LAB Other RV Lead Model # CAPSUREFIX MRI SURESCAN OTHER OUTSIDE 5086-58cm LAB RV Lead Serial [id number] OTHER OUTSIDE # LAB RV Lead Implant 10/18/2011 OTHER OUTSIDE Date LAB RV Lead OTHER OUTSIDE Location Other LAB RV Lead Diaph. 10 OTHER OUTSIDE Stimulation LAB RV Lead Medtronic OTHER OUTSIDE Rules Examiner LAB RV Lead No OTHER OUTSIDE Investigational LAB RV Lead active fixation OTHER OUTSIDE Fixation LAB RV Lead RV low septum OTHER OUTSIDE Location LAB RV Lead Pin IS1 OTHER OUTSIDE Connector ICD LAB RV Lead Coil OTHER OUTSIDE LAB LV Lead OTHER OUTSIDE Rules Examiner LAB Other LV Lead Model # OTHER OUTSIDE LAB LV Lead Serial OTHER OUTSIDE # LAB LV Lead Implant OTHER OUTSIDE Date LAB LV Lead OTHER OUTSIDE Location Other LAB LV Lead OTHER OUTSIDE Polarity Other LAB LV Lead OTHER OUTSIDE Configuration LAB Other LV Lead OTHER OUTSIDE Rules Examiner LAB LV Lead OTHER OUTSIDE Investigational LAB [...] remote LAB transmission AT/AF Daily OTHER OUTSIDE [place] Hours LAB Average Vent OTHER OUTSIDE Rate during LAB AT/AF #BPM Average Vent OTHER OUTSIDE Rate During LAB AT/AF #Hours Remote Yes OTHER OUTSIDE Monitoring? LAB Daily [place] OTHER OUTSIDE Threshld Alert? LAB Average OTHER OUTSIDE Venticular Rate LAB AT/AF On/Off VF OTHER OUTSIDE Detection/Thera LAB py Off Device OTHER OUTSIDE Reprogram LAB Comments Initial Rhythm at 70 bpm OTHER OUTSIDE LAB Underlying SB at 40's bpm OTHER OUTSIDE Rhythm LAB -VS% <0.1% OTHER OUTSIDE LAB -EDUCATION INSTRUCTOR% 8.2% OTHER OUTSIDE LAB -VS% 7.3% OTHER OUTSIDE LAB AP-EDUCATION INSTRUCTOR% 84.4% OTHER OUTSIDE LAB Initial Rhythm AP-EDUCATION INSTRUCTOR OTHER OUTSIDE LAB Device Function Yes OTHER OUTSIDE WNL LAB Device Yes OTHER OUTSIDE Reprogram LAB Programming? Yes OTHER OUTSIDE LAB Interrogation? Yes OTHER OUTSIDE LAB Device Check by OTHER OUTSIDE Rep LAB Activity 1.9 hr/day OTHER OUTSIDE LAB HRV (range ms) OTHER OUTSIDE LAB FL IND RANGE OTHER OUTSIDE (Last Fluid LAB Index Range) FL IND OTHER OUTSIDE TODAY(Today LAB Fluid Index Value) THOR IMP OTHER OUTSIDE RANGE(Last LAB Optivol Thoracic Impedence Range) THOR IMP OTHER OUTSIDE TODAY(Today's LAB Optivol Thoracic Impedence Value) ICM Evaluation No OTHER OUTSIDE LAB Thoracic OTHER OUTSIDE Impedance LAB Evaluated? Remote Check? No OTHER OUTSIDE LAB # Mode S. monitored: 1043 OTHER OUTSIDE Events LAB # High AT/AF treated: 826 OTHER OUTSIDE Evts LAB # High V Events 2 OTHER OUTSIDE LAB Time in AT/AF 7.6% - 1.8 hr/day OTHER OUTSIDE LAB V Rate in AT/AF OTHER OUTSIDE LAB Single PVSc 1.8 hr/day (was 0.6/hr) OTHER OUTSIDE LAB PVC runs 0.4/hr (was 0.2/hr) OTHER OUTSIDE LAB Battery Voltage 2.99V OTHER OUTSIDE LAB Estimated OTHER OUTSIDE Longevity LAB Magent Rate OTHER OUTSIDE LAB A Sense mv 3.8 OTHER OUTSIDE LAB A Lead ohms 360 OTHER OUTSIDE LAB A Capture V 2.0 OTHER OUTSIDE LAB A Capture ms 0.1 OTHER OUTSIDE LAB Ao Voltage 2.0 OTHER OUTSIDE LAB AO Pulse Width 0.4 OTHER OUTSIDE LAB RV Sense mv 20.3 OTHER OUTSIDE LAB RV Lead ohms 552 OTHER OUTSIDE LAB RV Capture V 2.0 OTHER OUTSIDE LAB RV Capture ms 0.06 OTHER OUTSIDE LAB RV Voltage 2.0 OTHER [...] Saved to Disc No OTHER OUTSIDE LAB Specimen Narrative Performed At 09/25/2014 - Full dual chamber PPM device check.Device function appears OTHER OUTSIDE LAB normal. Events noted: Atrial:1043 monitored AT/AF events and 826 treated with Stacie protocol for 7.6% of the time.Available EGM's appear to show A-Fib with V-rates well controlled < 100 bpm about 99% of the time. Ventricular:2 VHR episodes both on 08/29/14 lasting 1 second, EGM's show NSVT, A-rates: 87-88 bpm, V-rates: 182-200 bpm. Changed activity threshold from medium-low to low. Remote in place.Report given to MPE in clinic. EG Performing Organization Address City/State/Zipcode Phone Number OTHER OUTSIDE LAB documented in this encounter Visit Diagnoses Diagnosis Bradycardia Other specified cardiac dysrhythmias documented in this encounter
--- OUTSIDE RECORDS SUMMARY | 2018-12-05 14:38 | XMS REPORT | Encounter Summary ---
Author Author [facility] Organization [facility] Address Unknown Phone Unavailable Care Team Providers Care Brim Shaper Name Role Phone Dorian Muse MD Unavailable Dagmar Lopes MD PCP Ernesto Sosa MD [address] Melvin Monterroso MD Unavailable Unavailable Dana Birmingham RN Unavailable Unavailable Severiano Daniel DO Unavailable Reason for Visit * Reason Comments Atrial fibrillation Device Check Encounter Details Care Team Description Date Type Department Marty Trejo MD [address] [facility] [place] [address] Atrial fibrillation; Device Check 09/25/2014 Office Visit [facility] [address] [facility] [address] [place] [address] Social History Date Tobacco Use Types Packs/Day [...] Signs Reading Time Taken Comments Vital Sign 112/70 09/25/2014 1:43 PM CDT Blood Pressure 77 09/25/2014 1:43 PM CDT Pulse - - Temperature - - Respiratory Rate - - Oxygen Saturation - - Inhaled Oxygen Concentration 82.1 kg (181 lb) 09/25/2014 1:31 PM CDT Weight 167.6 cm (5' 5.98") 09/25/2014 1:31 PM CDT Height 29.23 09/25/2014 1:31 PM CDT Body Mass Index documented in this encounter Progress Notes * Marty Trejo MD - 09/24/2014 11:41 AM CDT Date of Service: 09/25/2014 Faiza Nation is a 79 y.o. female. HPI I had the pleasure of seeing your patient Faiza Nation for follow-up in the [facility] as a part of the [facility] today. Ms. Nation is an exceptionally pleasant 79 y.o. female, who is accompanied by h er equally pleasant daughter. She is followed and was originally referred by my friend and colleague Dr. Gruber -- her primary palliative care physician in [place], [place]. 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 She [...] she was initiated on Sotalol for her SRINIVAS B. Dr. Gruber followed her going forward. 2012 [...] TIA. She underwent a head CT in [facility] which was reportedly normal. Her digoxin level was elevated and her dos ing was changed to every other day. Also, at that OV, her Device interrogation demonstrated that she had been a few episodes of short-lasting episodes of AFib. At that visit we chose to continue h er on her Sotalol and Pradaxa. At her 01/06/14 OV, she was in NSR and denied any tachypalpitations. Her AFIB bur den remained reasonably low at 8%. Therefore we did not make any changes in her medical Tx. Her current complaints and status are discussed/described in the Assessment and Plan section below. She however denies any chest discomfort, shortness of breath, palpitations, ligh theadedness, dizziness, near syncope or syncope, PND or orthopnea. Assessment and Plan --Paroxysmal AFIB: She states she has Sxs of tachypalpitations weekly that typi annie last hours. However her AFIB burden is only in the 7.6% range. She also horvath s good ventricular rate control the majority of the time. We discussed options which included, switching her Sotalol to Amiodarone. We dis cussed Amiodarone. At this time she still does not want to make any changes. Therefore, She remains on Sotalol and Pradaxa. --NSVT: Brief and asymptomatic. Cardiac catheterization from 2012 showed only m ild/moderate disease. She continued to have recurrent events we consider repeat stress imaging by Dr. Gruber, although her daughter states she had a stress test in April, at Dr. Villa which she states to her recollection was negativ e. --Atypical Chest Pain: She states that when she does any strenuous activity with her arms, she "has a feeling in my chest and I have to stop." She states she has a similar feeling when she walks. She states when she walks and has this feeling she has associated KAVON. Her daughter states that she had a Stress Test 04/2014 and a Cardiac Cath [address] I will obtain those records. Her upper tracking rate is set at 130 bpm--which is good for her, but we will in crease her Rate Responsiveness. If her symptoms persist asked her to discuss this further with Dr. Gruber. --Exercise: We discussed increasing her exercise with walking. --Markedly Prolonged First Degree AV Block during A-Pacing: She appears to be d oing reasonably well with activity. If she develops progressive GRIMES or other exe rtional Sxs, we will consider programming her DDDR with MVP off and a shorter AV delay. --Frequent V-Pacing: Her V-pacing percent has gone from 84% to 93% since her la st OV. Apparently Dr. Gruber did an Echo which I anticipate showed normal LV func tion. If there is a deterioration in her function in the future, then I would up grade her device to MASTICATOR Tx. --Cardiac Device in situ-implanted for Sinus Node Dysfunction: Device is functi oning well. Changes as above. --Hypertension: Under good control. --Anticoagulation: Continues on Pradaxa. Filed Vitals: 09/25/14 1331 09/25/14 1343 BP: 118/70 112/70 Pulse: 77 Height: 1.676 m (5' 5.98") Weight: 82.101 kg (181 lb) Body mass index is 29.23 kg/(m^2). Past Medical History Patient Active Problem [...] Near syncope 09/16/2011 09/14/11 hospital admission to [facility] in [place], [place]. Reveal device 952 9 implanted by Allyn Petit MD. Cardiac device in situ, other 08/18/2011 09/16/11 Reveal device 9529, Medtronic. ROS Eyes: Positive for photophobia. Cardiovascular: Positive for dyspnea on exertion, irregular heartbeat, leg swell ing and palpitations. Respiratory: Positive for sleep disturbances due to breathing. Hematologic/Lymphatic: Bruises/bleeds easily. Skin: Positive for dry skin, itching and rash. Musculoskeletal: Positive for arthritis, back pain, joint pain, joint swelling, muscle cramps and myalgias. Gastrointestinal: Positive for bloating, abdominal pain, diarrhea, flatus, heart burn and hemorrhoids. Neurological: Positive for excessive daytime sleepiness, dizziness and light-hea dedness. Psychiatric/Behavioral: The patient has insomnia. All other systems reviewed and are negative. Physical Exam Const: She is in no acute distress, resting comfortably. Neuro: Patient is alert and oriented. Resp: Clear to auscultation bilaterally. Cardiovascular: No evidence of increased jugular venous pressure, carotids are 2+/4+ equal bilaterally. Regular rhythm, S1, S2. Soft 1-2/6 systolic murmur no keith at the RUSB. No heaves, thrills or rubs. Device: is in her left infraclavicular region and well-healed. Extremities: without significant peripheral edema. Cardiovascular Studies ECG today demonstrates A-V Dual Paced Rhythm at 77 bpm. CA 150 ms, QRSd 158 ms, QTc 512 ms. Full device check performed with reprogramming which I have extensively reviewed . Changes, if done, as discussed below and is detailed in other dictation/note. 826 AT/AF events with the longest being 6 hours in duration. AF burden 7.6%. 92% A-Paced, 93% V-Paced. V-Rate during AFIB 98% of the time is <100 bpm. 3 "NSVT" events. Review of the EGMs documents NSVT with VA Dissociation at 330 ms. Episodes are up to 3 seconds in duration. Atrial arrhythmias appear to be ATACH/AFL while other episodes are clearly AFIB. Assessment and Plan As above. Ms. Nation was educated regarding plan of [...] have scheduled her follow-up with me in 4-6 month( s). Current Medications (including today's revisions) alprazolam (XANAX) 0.25 mg tablet Take 0.25 mg by mouth twice daily. amiodarone (CORDARONE) 200 mg tablet Take 2 Tabs by mouth daily. amLODIPine (NORVASC) 5 mg tablet Take 5 mg by mouth daily. [DISCONTINUED] amLODIPine (NORVASC) 5 mg tablet Take 1 Tab by mouth daily. busPIRone (BUSPAR) 10 mg tablet Take 15 mg by mouth twice daily. [...] tablet Take 150 mcg by mouth daily. losartan (COZAAR) 100 mg tablet Take 100 mg by mouth Daily. meclizine (ANTIVERT) 25 mg tablet Take 25 mg by mouth as Needed. meloxicam(+) (MOBIC) 15 mg tablet Take 15 mg by mouth daily. metoprolol (LOPRESSOR) 25 mg tablet Take 0.5 Tabs by mouth twice daily. NYSTATIN (BULK) MISC Use 200 mg as directed as Needed. [place]-3 Acid Ethyl Esters (LOVAZA) 1 gram cap Take 1 Cap by mouth four times daily. omeprazole DR(+) (PRILOSEC) 40 mg capsule Take 40 mg by mouth daily. potassium chloride SR (K-DUR) 20 mEq tablet Take 40 mEq by mouth daily. sertraline (ZOLOFT) 50 mg tablet Take 50 mg by mouth daily. sucralfate (CARAFATE) 1 gram tablet Take 1 g by mouth every 6 hours as neede d. traMADol (ULTRAM) 50 mg tablet Take 50 mg by mouth every 6 hours as needed. Documentation recorded by Aileen Collins, acting as scribe for Marty Trejo M.D. documented in this encounter Plan of Treatment Order Schedule Name Type Priority Associated Diagnoses Ordered: 10/03/2014 ECG 12-LEAD ECG Routine Bradycardia Paroxysmal atrial fibrillation Cardiac device in situ, other documented as of this encounter Procedures Comments Procedure Name Priority Date/Time Associated Diagnosis ECG/QRS Routine 09/25/2014 1:47 PM CDT documented in this encounter Results * DEVICE EVALUATION - PPM (06/05/2015 12:30 PM SUPERVISOR PAPER MACHINE) Generator OTHER OUTSIDE Medical Manager LAB Other Generator Model REVO MRI RVDR01 OTHER OUTSIDE # LAB Generator [id number] OTHER OUTSIDE Serial # LAB Generator 10/18/2011 [...] Research OTHER OUTSIDE Comments 2 LAB FÉLIX/EOL WIRE WALKER=2.81V OTHER OUTSIDE Indicator LAB Generator Medtronic OTHER OUTSIDE Medical Manager LAB Generator No OTHER OUTSIDE Investigational LAB Wireless No OTHER OUTSIDE Generator LAB Device Type DDD-PM OTHER OUTSIDE LAB Other Implant OTHER OUTSIDE Info LAB Atrial Lead OTHER OUTSIDE Medical Manager LAB Other Atrial Lead CAPSUREFIX MRI SURESCAN OTHER OUTSIDE Model # 5086-52cm LAB Atrial Lead [id number] OTHER OUTSIDE Serial # LAB Atrial Lead 10/18/2011 OTHER OUTSIDE Implant Date LAB Atrial Lead OTHER OUTSIDE Location Other LAB Atrial Lead OTHER OUTSIDE Polarity Other LAB Atrial Lead 10 OTHER OUTSIDE Diaph. LAB Stimulation Atrial Lead Medtronic OTHER OUTSIDE Medical Manager LAB Atrial Lead No OTHER OUTSIDE Investigational LAB Atrial Lead active fixation OTHER OUTSIDE Fixation LAB Atrial Lead right atrial appendage OTHER OUTSIDE Location LAB Atrial Lead Pin IS1 OTHER OUTSIDE Connector LAB Atrial Lead Bipolar OTHER OUTSIDE Polarity LAB RV Lead OTHER OUTSIDE Medical Manager LAB Other RV Lead Model # CAPSUREFIX MRI SURESCAN OTHER OUTSIDE 5086-58cm LAB RV Lead Serial [id number] OTHER OUTSIDE # LAB RV Lead Implant 10/18/2011 OTHER OUTSIDE Date LAB RV Lead OTHER OUTSIDE Location Other LAB RV Lead Diaph. 10 OTHER OUTSIDE Stimulation LAB RV Lead Medtronic OTHER OUTSIDE Medical Manager LAB RV Lead No OTHER OUTSIDE Investigational LAB RV Lead active fixation OTHER OUTSIDE Fixation LAB RV Lead RV low septum OTHER OUTSIDE Location LAB RV Lead Pin IS1 OTHER OUTSIDE Connector ICD LAB RV Lead Coil OTHER OUTSIDE LAB LV Lead OTHER OUTSIDE Medical Manager LAB Other LV Lead Model # OTHER OUTSIDE LAB LV Lead Serial OTHER OUTSIDE # LAB LV Lead Implant OTHER OUTSIDE Date LAB LV Lead OTHER OUTSIDE Location Other LAB LV Lead OTHER OUTSIDE Polarity Other LAB LV Lead OTHER OUTSIDE Configuration LAB Other LV Lead OTHER OUTSIDE Medical Manager LAB LV Lead OTHER OUTSIDE Investigational LAB [...] remote LAB transmission AT/AF Daily OTHER OUTSIDE [place] Hours LAB Average Vent OTHER OUTSIDE Rate during LAB AT/AF #BPM Average Vent OTHER OUTSIDE Rate During LAB AT/AF #Hours Remote Yes OTHER OUTSIDE Monitoring? LAB Daily [place] OTHER OUTSIDE Threshld Alert? LAB Average OTHER OUTSIDE Venticular Rate LAB AT/AF On/Off VF OTHER OUTSIDE Detection/Thera LAB py Off EP Device Dr. Trejo OTHER OUTSIDE Followed by LAB Name EP Device MAC OTHER OUTSIDE Followed By LAB # Mode S. monitored 102 (since 01/20 OTHER OUTSIDE Events remote) 1592 total since LAB September # High AT/AF treated 205 (since [...] OTHER OUTSIDE Reprogram LAB Comments Initial Rhythm AP-HEEL SHAVER OTHER OUTSIDE LAB Underlying SB in the 50s with 1'AVB VIKAS OTHER OUTSIDE Rhythm around 360-380 ms LAB -VS% <0.1 OTHER OUTSIDE LAB -HEEL SHAVER% 4.5 OTHER OUTSIDE LAB -VS% 2.7 OTHER OUTSIDE LAB AP-HEEL SHAVER% 92.8 OTHER OUTSIDE LAB Initial Rhythm OTHER [...] City/State/Zipcode Phone Number OTHER OUTSIDE LAB * ECG/QRS (09/25/2014 1:47 PM CDT) QRS DURATION 158 documented in this encounter Visit Diagnoses Diagnosis Paroxysmal atrial fibrillation (HCC) - Primary Atrial fibrillation Bradycardia Other specified cardiac dysrhythmias Cardiac device in situ, other Other specified cardiac device in situ Acute chest pain Chest pain, unspecified documented in this encounter
--- OUTSIDE RECORDS SUMMARY | 2018-12-05 14:38 | XMS REPORT | Encounter Summary ---
Author Author [facility] Organization [facility] Address Unknown Phone Unavailable Care Team Providers Care Household Appliance Installer Name Role Phone Dorian Muse MD Unavailable Dagmar Lopes MD PCP Ernesto Sosa MD [address] Melvin Monterroso MD Unavailable Unavailable Dana Birmingham RN Unavailable Unavailable Severiano Daniel DO Unavailable Reason for Visit * Reason Comments Remote Monitoring Triage: calling for results. Questions Encounter Details Care Team Description Date Type Department Massiel Fink RN [phone] Remote Monitoring Questions (Triage: calling for results.) 07/21/2014 Telephone The [address] [place] [address] Social History Date Tobacco Use Types Packs/Day [...] Miscellaneous Notes * Telephone Encounter - Massiel Fink, STEVEN - 07/21/2014 3:01 PM PHLEBOTOMY TECHNICIAN Faiza's daughter LVM regarding remote transmission- asking for results. I revie wed transmission results with her and told her that she did have some AF, ~ 7% She will have her follow up with Dr Trejo in September. Nathaly Fink RN, CHFN Central Process-Triage BOTOMY TECHNICIAN documented in this encounter Plan of Treatment Not on filedocumented as of this encounter Visit Diagnoses Not on filedocumented in this encounter
--- OUTSIDE RECORDS SUMMARY | 2018-12-05 14:39 | XMS REPORT | Encounter Summary ---
Author Author [facility] Organization [facility] Address Unknown Phone Unavailable Care Team Providers Care Industrial Safety Engineer Name Role Phone Dorian Muse MD Unavailable Dagmar Lopes MD PCP Ernesto Sosa MD [address] Mel[address] Monterroso MD Unavailable Unavailable Dana Birmingham RN Unavailable Unavailable Severiano Daniel DO Unavailable Reason for Visit * Reason Comments Remote Monitoring Phoned pt's dtr backDipika, to inform her we had received the carelink and Questions would review the data. Encounter Details Care Team Description Date Type Department Aria Guerrier RN Remote Monitoring Questions (Phoned pt's dtr backDipika, to inform her we had received the carelink and would review the data. ) 07/09/2014 Telephone The [facility] [id number] [place] [address] Social History Date Tobacco Use Types Packs/Day [...] Miscellaneous Notes * Telephone Encounter - Aria Guerrier RN - 07/09/2014 4:12 PM BRAND ATTENDANT Called back, the message trail indicated there had been more than one call. Told her the remote had been received and still needed to be processed. Explained if there was any issue with report, we would contact her/the patient. Dipika verbalized understanding and stated she was just making sure it had gone t hrough. D ATTENDANT documented in this encounter Plan of Treatment Not on filedocumented as of this encounter Visit Diagnoses Not on filedocumented in this encounter
--- OUTSIDE RECORDS SUMMARY | 2018-12-05 14:39 | XMS REPORT | Encounter Summary ---
Author Author [facility] Organization [facility] Address Unknown Phone Unavailable Care Team Providers Care [employer] Name Role Phone Dorian Muse MD Unavailable Dagmar Lopes MD PCP Ernesto Sosa MD [address] Monterroso MD Unavailable Unavailable Dana Birmingham RN Unavailable Unavailable Severiano Daniel DO Unavailable Encounter Details Care Team Description Date Type Department Marty Trejo MD [address] [facility] [place] [id number] [place] [address] [phone] 07/09/2014 Hospital Cardiovascular Medicine Encounter Remote Device Check [phone] Social History Date Tobacco Use Types Packs/Day [...] by 90 Tab 1 tablet mouth daily. 09/25/2014 aspirin EC 81 mg tablet Take 81 mg by 0 mouth daily. 06/05/2015 busPIRone (BUSPAR) 10 mg Take 15 mg by 0 tablet mouth twice daily. 05/18/2017 Calcium Carbonate-Vitamin Take 1 Tab by 0 D3 (VITAMIN D-3) mouth daily. 180-5,000 mg-unit Tab 09/25/2014 levothyroxine (SYNTHROID) Take 125 mcg 0 125 mcg tablet by mouth daily. 05/18/2017 meclizine (ANTIVERT) 25 Take 25 mg by 0 mg tablet mouth as Needed. 07/08/2013 05/18/2017 metoprolol (LOPRESSOR) 25 Take 0.5 Tabs 180 Tab 3 mg tablet by mouth twice daily. 05/18/2017 NYSTATIN (BULK) MISC Use 200 mg as 0 directed as Needed. 04/11/2012 05/04/2018 [place]-3 Acid Ethyl Esters Take 1 Cap by [...] Date/Time Associated Diagnosis DEVICE EVALUATION - Routine 07/16/2014 Bradycardia REMOTE PPM 9:43 AM POLICY WRITER SALES documented in this encounter Results * DEVICE EVALUATION - REMOTE PPM (07/16/2014 9:43 AM POLICY WRITER SALES) Generator OTHER OUTSIDE Chemist Enzymes LAB Other Generator Model REVO MRI RVDR01 OTHER OUTSIDE # LAB Generator [id number] OTHER OUTSIDE Serial # LAB Generator 10/18/2011 [...] Research OTHER OUTSIDE Comments 2 LAB FÉLIX/EOL RECORDING CLERK=2.81V OTHER OUTSIDE Indicator LAB Generator Medtronic OTHER OUTSIDE Chemist Enzymes LAB Generator No OTHER OUTSIDE Investigational LAB Wireless No OTHER OUTSIDE Generator LAB Device Type DDD-PM OTHER OUTSIDE LAB Other Implant OTHER OUTSIDE Info LAB Atrial Lead OTHER OUTSIDE Chemist Enzymes LAB Other Atrial Lead CAPSUREFIX MRI SURESCAN OTHER OUTSIDE Model # 5086-52cm LAB Atrial Lead [id number] OTHER OUTSIDE Serial # LAB Atrial Lead 10/18/2011 OTHER OUTSIDE Implant Date LAB Atrial Lead OTHER OUTSIDE Location Other LAB Atrial Lead OTHER OUTSIDE Polarity Other LAB Atrial Lead 10 OTHER OUTSIDE [place]. LAB Stimulation Atrial Lead Medtronic OTHER OUTSIDE Chemist Enzymes LAB Atrial Lead No OTHER OUTSIDE Investigational LAB Atrial Lead active fixation OTHER OUTSIDE Fixation LAB Atrial Lead right atrial appendage OTHER OUTSIDE Location LAB Atrial Lead Pin IS1 OTHER OUTSIDE Connector LAB Atrial Lead Bipolar OTHER OUTSIDE Polarity LAB RV Lead OTHER OUTSIDE Chemist Enzymes LAB Other RV Lead Model # CAPSUREFIX MRI SURESCAN OTHER OUTSIDE 5086-58cm LAB RV Lead Serial [id number] OTHER OUTSIDE # LAB RV Lead Implant 10/18/2011 OTHER OUTSIDE Date LAB RV Lead OTHER OUTSIDE Location Other LAB RV Lead Diaph. 10 OTHER OUTSIDE Stimulation LAB RV Lead Medtronic OTHER OUTSIDE Chemist Enzymes LAB RV Lead No OTHER OUTSIDE Investigational LAB RV Lead active fixation OTHER OUTSIDE Fixation LAB RV Lead RV low septum OTHER OUTSIDE Location LAB RV Lead Pin IS1 OTHER OUTSIDE Connector ICD LAB RV Lead Coil OTHER OUTSIDE LAB LV Lead OTHER OUTSIDE Chemist Enzymes LAB Other LV Lead Model # OTHER OUTSIDE LAB LV Lead Serial OTHER OUTSIDE # LAB LV Lead Implant OTHER OUTSIDE Date LAB LV Lead OTHER OUTSIDE Location Other LAB LV Lead OTHER OUTSIDE Polarity Other LAB LV Lead OTHER OUTSIDE Configuration LAB Other LV Lead OTHER OUTSIDE Chemist Enzymes LAB LV Lead OTHER OUTSIDE Investigational LAB [...] OTHER OUTSIDE Dependant LAB Date of Last 03/31/14 OTHER OUTSIDE Programming LAB Next 09/25/2014 OTHER OUTSIDE Programming LAB Check Due Date of Last 01/06/2014 OTHER OUTSIDE Interrogation LAB Date of Last OTHER OUTSIDE ICM Evaluation LAB Next ICM Check OTHER OUTSIDE Due LAB HF Patient No OTHER OUTSIDE LAB Date of Last 07/09/14 OTHER OUTSIDE Remote Check LAB Next Remote 91 days OTHER OUTSIDE Check Due LAB Enrollment Date OTHER OUTSIDE LAB Date of OTHER OUTSIDE baseline remote LAB transmission AT/AF Daily OTHER OUTSIDE [place] Hours LAB Average Vent OTHER OUTSIDE Rate during LAB AT/AF #BPM Average Vent OTHER OUTSIDE Rate During LAB AT/AF #Hours Remote Yes OTHER OUTSIDE Monitoring? LAB Daily [place] OTHER OUTSIDE Threshld Alert? LAB Average OTHER OUTSIDE Venticular Rate LAB AT/AF On/Off VF OTHER OUTSIDE Detection/Thera LAB py Off Device OTHER OUTSIDE Reprogram LAB Comments Initial Rhythm AP- VS in the 80's OTHER OUTSIDE LAB Underlying OTHER OUTSIDE Rhythm LAB -VS% <0.1 OTHER OUTSIDE LAB -DURABLE MEDICAL EQUIPMENT TECHNICIAN% 8.1 OTHER OUTSIDE LAB -VS% 9.4 OTHER OUTSIDE LAB AP-DURABLE MEDICAL EQUIPMENT TECHNICIAN% 82.5 OTHER OUTSIDE LAB Initial Rhythm AP-VS OTHER OUTSIDE LAB Device Function Yes OTHER OUTSIDE WNL LAB Device No OTHER OUTSIDE Reprogram LAB ICM Evaluation OTHER OUTSIDE LAB Activity 1.5 hr/day OTHER OUTSIDE LAB HRV (range ms) OTHER OUTSIDE LAB FL IND RANGE OTHER OUTSIDE (Last Fluid LAB Index Range) FL IND OTHER OUTSIDE TODAY(Today LAB Fluid Index Value) THOR IMP OTHER OUTSIDE RANGE(Last LAB Optivol Thoracic Impedence Range) THOR IMP OTHER OUTSIDE TODAY(Today's LAB Optivol Thoracic Impedence Value) Thoracic OTHER OUTSIDE Impedance LAB Evaluated? # Mode S. 647 OTHER OUTSIDE Events LAB # High AT/AF 647 OTHER OUTSIDE Evts LAB # High V Events 1 OTHER OUTSIDE LAB Time in AT/AF 1.8 hr day (7.3%) up frrom OTHER OUTSIDE 3.8% in March LAB V Rate in AT/AF graph shows consistently OTHER OUTSIDE averaging < 100bpm no solid LAB number given. Single PVSc 1.6 per hour (up from 0.6) OTHER OUTSIDE LAB PVC runs 0.5 per hour (up from 0.2) OTHER OUTSIDE LAB Battery Voltage 2.99 OTHER OUTSIDE LAB Estimated OTHER OUTSIDE Longevity LAB Magent Rate OTHER OUTSIDE LAB A Sense mv 1.9 OTHER OUTSIDE LAB A Lead ohms 384 OTHER OUTSIDE LAB A Capture V OTHER OUTSIDE LAB A Capture ms OTHER OUTSIDE LAB Ao Voltage 2.0 OTHER OUTSIDE LAB AO Pulse Width 0.40 OTHER OUTSIDE LAB RV Sense mv 20 OTHER OUTSIDE LAB RV Lead ohms 584 OTHER OUTSIDE LAB RV Capture V OTHER OUTSIDE LAB RV Capture ms OTHER OUTSIDE LAB RV Voltage 2.0 OTHER OUTSIDE LAB RV Pulse Width 0.4 OTHER OUTSIDE LAB LV Sense mv OTHER OUTSIDE LAB LV Lead ohms OTHER OUTSIDE LAB EP LV Capture V OTHER OUTSIDE LAB LV Capture ms OTHER OUTSIDE LAB LV Voltage OTHER OUTSIDE LAB LV Pulse Width OTHER OUTSIDE LAB V-V Timing OTHER OUTSIDE LAB Counters Clrd No OTHER OUTSIDE LAB Saved to Disc No OTHER OUTSIDE LAB Remote Check? Yes OTHER OUTSIDE LAB Specimen Narrative Performed At [07/16/2014 9:47:58 AM - MANDY METCALF] OTHER OUTSIDE LAB Dual chamber pacemaker interrogation reviewed 07/09/14.Device function appears normal. Events noted: Since 03/31/14 Atrial:[place] from 3.8 last check to 7.3% this check. 647 list AT/AF episodes; 465 were treated with Stacie programming. 300 of those 465 were successfully pace terminated by the device. Longest episode listed was a 4 hour 19 minute duration, (also listed as treated event) on 07/05/14. The max A/V rate was 544/81 bpm. The episodes list on the Arrhythmia Episode List show the event are clustered around certain dates and minutes apart. For example: 53 AT/AF on 07/08/14 45 AT/AF on 07/07/14 There does not appear to be undersensing on the EGM's available for review. P was 1.9mV today programmed sensitivity @ 0.30mv, but this should be closely looked at, at next office check. Pt is on Pradaxa and 120 mg Sotalol BID. Ventricular:1 - 6 beat NSVT on 05/21/14 with <1second duration. Lead trends appear stable. [facility] remote monitoring is in place.This appears to be the pt's first transmission. The pt's dtr was notified it came through. Pt to see MPE 09/25/14. Will continue to monitor. Procedure Note Marty Trejo MD - 07/19/2014 2:00 PM POLICY WRITER SALES [07/16/2014 9:47:58 AM - MANDY METCALF] Dual chamber pacemaker interrogation reviewed 07/09/14. Device function appears normal. Events noted: Since 03/31/14 Atrial: [place] from 3.8 last check to 7.3% this check. 647 list AT/AF episodes; 465 were treated with Stacie programming. 300 of those 465 were successfully pace terminated by the device. Longest episode listed was a 4 hour 19 minute duration, (also listed as treated event) on 07/05/14. The max A/V rate was 544/81 bpm. The episodes list on the Arrhythmia Episode List show the event are clustered around certain dates and minutes apart. For example: 53 AT/AF on 07/08/14 45 AT/AF on 07/07/14 There does not appear to be undersensing on the EGM's available for review. P was 1.9mV today programmed sensitivity @ 0.30mv, but this should be closely looked at, at next office check. Pt is on Pradaxa and 120 mg Sotalol BID. Ventricular: 1 - 6 beat NSVT on 05/21/14 with <1second duration. Lead trends appear stable. [facility] remote monitoring is in place. This appears to be the pt's first transmission. The pt's dtr was notified it came through. Pt to see MPE 09/25/14. Will continue to monitor. Performing Organization Address City/State/Zipcode Phone Number OTHER OUTSIDE LAB documented in this encounter Visit Diagnoses Diagnosis Bradycardia Other specified cardiac dysrhythmias documented in this encounter
--- OUTSIDE RECORDS SUMMARY | 2018-12-05 14:39 | XMS REPORT | Encounter Summary ---
Author Author [facility] Organization [facility] Address Unknown Phone Unavailable Care Team Providers Care [employer] Supervisor Name Role Phone Dorian Muse MD Unavailable Dagmar Lopes MD PCP Ernesto Sosa MD [address] Monterroso MD Unavailable Unavailable Dana Birmingham RN Unavailable Unavailable Severiano Daniel DO Unavailable Encounter Details Care Team Description Date Type Department Aria Guerrier RN Paroxysmal atrial fibrillation (Primary Dx) 07/16/2014 Orders Only [facility] [id number] [place] [address] Social History Date Tobacco Use Types Packs/Day [...] filedocumented as of this encounter Results * DEVICE EVALUATION - REMOTE PPM (07/19/2016 10:31 AM LOGGING CREW FOREMAN) Generator OTHER OUTSIDE [employer] LAB Other Generator Model REVO MRI RVDR01 OTHER OUTSIDE # LAB Generator [id number] OTHER OUTSIDE Serial # LAB Generator 10/18/2011 [...] Research OTHER OUTSIDE Comments 2 LAB FÉLIX/EOL MEXICAN FOOD MAKER HAND=2.81V OTHER OUTSIDE Indicator LAB Generator Medtronic OTHER OUTSIDE [facility] LAB Generator No OTHER OUTSIDE Investigational LAB Wireless No OTHER OUTSIDE Generator LAB Device Type DDD-PM OTHER OUTSIDE LAB Other Implant OTHER OUTSIDE Info LAB Atrial Lead OTHER OUTSIDE [employer] Keeper LAB Other Atrial Lead CAPSUREFIX MRI SURESCAN OTHER OUTSIDE Model # 5086-52cm LAB Atrial Lead [id number] OTHER OUTSIDE Serial # LAB Atrial Lead 10/18/2011 OTHER OUTSIDE Implant Date LAB Atrial Lead OTHER OUTSIDE Location Other LAB Atrial Lead OTHER OUTSIDE Polarity Other LAB Atrial Lead 10 OTHER OUTSIDE Diaph. LAB Stimulation Atrial Lead Medtronic OTHER OUTSIDE Zoo Keeper LAB Atrial Lead No OTHER OUTSIDE Investigational LAB Atrial Lead active fixation OTHER OUTSIDE Fixation LAB Atrial Lead right atrial appendage OTHER OUTSIDE Location LAB Atrial Lead Pin IS1 OTHER OUTSIDE Connector LAB Atrial Lead Bipolar OTHER OUTSIDE Polarity LAB RV Lead OTHER OUTSIDE [employer] LAB Other RV Lead Model # CAPSUREFIX MRI SURESCAN OTHER OUTSIDE 5086-58cm LAB RV Lead Serial [id number] OTHER OUTSIDE # LAB RV Lead Implant 10/18/2011 OTHER OUTSIDE Date LAB RV Lead OTHER OUTSIDE Location Other LAB RV Lead Diaph. 10 OTHER OUTSIDE Stimulation LAB RV Lead Medtronic OTHER OUTSIDE Zoo Keeper LAB RV Lead No OTHER OUTSIDE Investigational LAB RV Lead active fixation OTHER OUTSIDE Fixation LAB RV Lead RV low septum OTHER OUTSIDE Location LAB RV Lead Pin IS1 OTHER OUTSIDE Connector ICD LAB RV Lead Coil OTHER OUTSIDE LAB LV Lead OTHER OUTSIDE Zoo Keeper LAB Other LV Lead Model # OTHER OUTSIDE LAB LV Lead Serial OTHER OUTSIDE # LAB LV Lead Implant OTHER OUTSIDE Date LAB LV Lead OTHER OUTSIDE Location Other LAB LV Lead OTHER OUTSIDE Polarity Other LAB LV Lead OTHER OUTSIDE Configuration LAB Other LV Lead OTHER OUTSIDE Zoo Keeper LAB LV Lead OTHER OUTSIDE Investigational LAB [...] remote LAB transmission AT/AF Daily OTHER OUTSIDE [place] Hours LAB Average Vent OTHER OUTSIDE Rate during LAB AT/AF #BPM Average Vent OTHER OUTSIDE Rate During LAB AT/AF #Hours Remote Yes OTHER OUTSIDE Monitoring? LAB Daily [place] OTHER OUTSIDE Threshld Alert? LAB Average OTHER OUTSIDE Venticular Rate LAB AT/AF On/Off VF OTHER OUTSIDE Detection/Thera LAB py Off EP Device Dr. Trejo OTHER OUTSIDE Followed by LAB Name EP Device MAC OTHER OUTSIDE Followed By LAB Device OTHER OUTSIDE [place] [facility] Transmitter Device [facility] OTHER OUTSIDE [place] [facility] Transmitter Compatible Specimen Narrative Performed At [...] LAB * DEVICE EVALUATION - REMOTE PPM (04/14/2016 11:11 AM CDT) Generator OTHER OUTSIDE [employer] LAB Other Generator Model REVO MRI RVDR01 OTHER OUTSIDE # LAB Generator [id number] OTHER OUTSIDE Serial # LAB Generator 10/18/2011 [...] Research OTHER OUTSIDE Comments 2 LAB FÉLIX/EOL MEXICAN FOOD MAKER HAND=2.81V OTHER OUTSIDE Indicator LAB Generator Medtronic OTHER OUTSIDE [facility] [employer] LAB Generator No OTHER OUTSIDE Investigational LAB Wireless No OTHER OUTSIDE Generator LAB Device Type DDD-PM OTHER OUTSIDE LAB Other Implant OTHER OUTSIDE Info LAB Atrial Lead OTHER OUTSIDE Zoo Keeper LAB Other Atrial Lead CAPSUREFIX MRI SURESCAN OTHER OUTSIDE Model # 5086-52cm LAB Atrial Lead [id number] OTHER OUTSIDE Serial # LAB Atrial Lead 10/18/2011 OTHER OUTSIDE Implant Date LAB Atrial Lead OTHER OUTSIDE Location Other LAB Atrial Lead OTHER OUTSIDE Polarity Other LAB Atrial Lead 10 OTHER OUTSIDE Diaph. LAB Stimulation Atrial Lead Medtronic OTHER OUTSIDE [employer] Keeper LAB Atrial Lead No OTHER OUTSIDE Investigational LAB Atrial Lead active fixation OTHER OUTSIDE Fixation LAB Atrial Lead right atrial appendage OTHER OUTSIDE Location LAB Atrial Lead Pin IS1 OTHER OUTSIDE Connector LAB Atrial Lead Bipolar OTHER OUTSIDE Polarity LAB RV Lead OTHER OUTSIDE [employer]eeper LAB Other RV Lead Model # CAPSUREFIX MRI SURESCAN OTHER OUTSIDE 5086-58cm LAB RV Lead Serial [id number] OTHER OUTSIDE # LAB RV Lead Implant 10/18/2011 OTHER OUTSIDE Date LAB RV Lead OTHER OUTSIDE Location Other LAB RV Lead Diaph. 10 OTHER OUTSIDE Stimulation LAB RV Lead Medtronic OTHER OUTSIDE Zoo Keeper LAB RV Lead No OTHER OUTSIDE Investigational LAB RV Lead active fixation OTHER OUTSIDE Fixation LAB RV Lead RV low septum OTHER OUTSIDE Location LAB RV Lead Pin IS1 OTHER OUTSIDE Connector ICD LAB RV Lead Coil OTHER OUTSIDE LAB LV Lead OTHER OUTSIDE Zoo Keeper LAB Other LV Lead Model # OTHER OUTSIDE LAB LV Lead Serial OTHER OUTSIDE # LAB LV Lead Implant OTHER OUTSIDE Date LAB LV Lead OTHER OUTSIDE Location Other LAB LV Lead OTHER OUTSIDE Polarity Other LAB LV Lead OTHER OUTSIDE Configuration LAB Other LV Lead OTHER OUTSIDE Zoo Keeper LAB LV Lead OTHER OUTSIDE Investigational LAB [...] remote LAB transmission AT/AF Daily OTHER OUTSIDE [place] Hours LAB Average Vent OTHER OUTSIDE Rate during LAB AT/AF #BPM Average Vent OTHER OUTSIDE Rate During LAB AT/AF #Hours Remote Yes OTHER OUTSIDE Monitoring? LAB Daily [place] OTHER OUTSIDE Threshld Alert? LAB Average OTHER OUTSIDE Venticular Rate LAB AT/AF On/Off VF OTHER OUTSIDE Detection/Thera LAB py Off EP Device Dr. Trejo OTHER OUTSIDE Followed by LAB Name EP Device MAC OTHER OUTSIDE Followed By LAB Device OTHER OUTSIDE [place] LAB Transmitter Device [facility] OTHER OUTSIDE [place] LAB Transmitter Compatible Remote Check? Yes OTHER [...] elevated LFT.- Will need to monitor AF [place]. Ventricular:none Yearly OV scheduled sometime in December 2016 with MPE. Will route to MPE for review and co-sign. [04/14/2016 2:42:55 PM - JYOTI KUMAR] Performing Organization Address City/State/Zipcode Phone Number OTHER OUTSIDE LAB * DEVICE EVALUATION - REMOTE PPM (09/09/2015 1:59 PM CDT) Generator OTHER OUTSIDE [employer] LAB Other Generator Model REVO MRI RVDR01 OTHER OUTSIDE # LAB Generator [id number] OTHER OUTSIDE Serial # LAB Generator 10/18/2011 [...] Research OTHER OUTSIDE Comments 2 LAB FÉLIX/EOL MEXICAN FOOD MAKER HAND=2.81V OTHER OUTSIDE Indicator LAB Generator Medtronic OTHER OUTSIDE [facility] LAB Generator No OTHER OUTSIDE Investigational LAB Wireless No OTHER OUTSIDE Generator LAB Device Type DDD-PM OTHER OUTSIDE LAB Other Implant OTHER OUTSIDE Info LAB Atrial Lead OTHER OUTSIDE [employer]eeper LAB Other Atrial Lead CAPSUREFIX MRI SURESCAN OTHER OUTSIDE Model # 5086-52cm LAB Atrial Lead [id number] OTHER OUTSIDE Serial # LAB Atrial Lead 10/18/2011 OTHER OUTSIDE Implant Date LAB Atrial Lead OTHER OUTSIDE Location Other LAB Atrial Lead OTHER OUTSIDE Polarity Other LAB Atrial Lead 10 OTHER OUTSIDE Diaph. LAB Stimulation Atrial Lead Medtronic OTHER OUTSIDE [employer] Keeper LAB Atrial Lead No OTHER OUTSIDE Investigational LAB Atrial Lead active fixation OTHER OUTSIDE Fixation LAB Atrial Lead right atrial appendage OTHER OUTSIDE Location LAB Atrial Lead Pin IS1 OTHER OUTSIDE Connector LAB Atrial Lead Bipolar OTHER OUTSIDE Polarity LAB RV Lead OTHER OUTSIDE [employer]eeper LAB Other RV Lead Model # CAPSUREFIX MRI SURESCAN OTHER OUTSIDE 5086-58cm LAB RV Lead Serial [id number] OTHER OUTSIDE # LAB RV Lead Implant 10/18/2011 OTHER OUTSIDE Date LAB RV Lead OTHER OUTSIDE Location Other LAB RV Lead Diaph. 10 OTHER OUTSIDE Stimulation LAB RV Lead Medtronic OTHER OUTSIDE [employer] Keeper LAB RV Lead No OTHER OUTSIDE Investigational LAB RV Lead active fixation OTHER OUTSIDE Fixation LAB RV Lead RV low septum OTHER OUTSIDE Location LAB RV Lead Pin IS1 OTHER OUTSIDE Connector ICD LAB RV Lead Coil OTHER OUTSIDE LAB LV Lead OTHER OUTSIDE Zoo Keeper LAB Other LV Lead Model # OTHER OUTSIDE LAB LV Lead Serial OTHER OUTSIDE # LAB LV Lead Implant OTHER OUTSIDE Date LAB LV Lead OTHER OUTSIDE Location Other LAB LV Lead OTHER OUTSIDE Polarity Other LAB LV Lead OTHER OUTSIDE Configuration LAB Other LV Lead OTHER OUTSIDE [employer] Keeper LAB LV Lead OTHER OUTSIDE Investigational LAB [...] remote LAB transmission AT/AF Daily OTHER OUTSIDE [place] Hours LAB Average Vent OTHER OUTSIDE Rate during LAB AT/AF #BPM Average Vent OTHER OUTSIDE Rate During LAB AT/AF #Hours Remote Yes OTHER OUTSIDE Monitoring? LAB Daily [place] OTHER OUTSIDE Threshld Alert? LAB Average OTHER OUTSIDE Venticular Rate LAB AT/AF On/Off VF OTHER OUTSIDE Detection/Thera LAB py Off EP Device Dr. Trejo OTHER OUTSIDE Followed by LAB Name EP Device MAC OTHER OUTSIDE Followed By LAB Device OTHER OUTSIDE [place] LAB Transmitter Device [facility] OTHER OUTSIDE [place] LAB Transmitter Compatible Specimen Narrative Performed At OTHER OUTSIDE LAB Current Monitoring Period: 09/07/15 through 12/07/15 [11/25/2015 2:55:59 PM - JYOTI KUMAR] Requested remote received and reviewed. "her liver enzymes are still up and need to decide about further decreasing her amiodarone. will have them send in a transmission today to check rhythm and AF burden. said she is feeling more palpitations." Presenting rhythm shows Ap-STOCK ORDER LISTER 88bpm. Events noted: Since 09/04/15 Atrial: 7 [...] report for details. [09/09/2015 2:00:05 PM - MARIRITA] Scheduled [facility] transmission received.Device function appears normal. [...] LAB * DEVICE EVALUATION - REMOTE PPM (01/20/2015 3:37 PM CDT) Generator OTHER OUTSIDE [employer] LAB Other Generator Model REVO MRI RVDR01 OTHER OUTSIDE # LAB Generator [id number] OTHER OUTSIDE Serial # LAB Generator 10/18/2011 [...] Research OTHER OUTSIDE Comments 2 LAB FÉLIX/EOL MEXICAN FOOD MAKER HAND=2.81V OTHER OUTSIDE Indicator LAB Generator Medtronic OTHER OUTSIDE [facility] LAB Generator No OTHER OUTSIDE Investigational LAB Wireless No OTHER OUTSIDE Generator LAB Device Type DDD-PM OTHER OUTSIDE LAB Other Implant OTHER OUTSIDE Info LAB Atrial Lead OTHER OUTSIDE [employer] LAB Other Atrial Lead CAPSUREFIX MRI SURESCAN OTHER OUTSIDE Model # 5086-52cm LAB Atrial Lead [id number] OTHER OUTSIDE Serial # LAB Atrial Lead 10/18/2011 OTHER OUTSIDE Implant Date LAB Atrial Lead OTHER OUTSIDE Location Other LAB Atrial Lead OTHER OUTSIDE Polarity Other LAB Atrial Lead 10 OTHER OUTSIDE [place]. LAB Stimulation Atrial Lead Medtronic OTHER OUTSIDE [employer]eeper LAB Atrial Lead No OTHER OUTSIDE Investigational LAB Atrial Lead active fixation OTHER OUTSIDE Fixation LAB Atrial Lead right atrial appendage OTHER OUTSIDE Location LAB Atrial Lead Pin IS1 OTHER OUTSIDE Connector LAB Atrial Lead Bipolar OTHER OUTSIDE Polarity LAB RV Lead OTHER OUTSIDE [employer] LAB Other RV Lead Model # CAPSUREFIX MRI SURESCAN OTHER OUTSIDE 5086-58cm LAB RV Lead Serial [id number] OTHER OUTSIDE # LAB RV Lead Implant 10/18/2011 OTHER OUTSIDE Date LAB RV Lead OTHER OUTSIDE Location Other LAB RV Lead Diaph. 10 OTHER OUTSIDE Stimulation LAB RV Lead Medtronic OTHER OUTSIDE [employer] LAB RV Lead No OTHER OUTSIDE Investigational LAB RV Lead active fixation OTHER OUTSIDE Fixation LAB RV Lead RV low septum OTHER OUTSIDE Location LAB RV Lead Pin IS1 OTHER OUTSIDE Connector ICD LAB RV Lead Coil OTHER OUTSIDE LAB LV Lead OTHER OUTSIDE [employer]eeper LAB Other LV Lead Model # OTHER OUTSIDE LAB LV Lead Serial OTHER OUTSIDE # LAB LV Lead Implant OTHER OUTSIDE Date LAB LV Lead OTHER OUTSIDE Location Other LAB LV Lead OTHER OUTSIDE Polarity Other LAB LV Lead OTHER OUTSIDE Configuration LAB Other LV Lead OTHER OUTSIDE [employer] Keeper LAB LV Lead OTHER OUTSIDE Investigational LAB [...] remote LAB transmission AT/AF Daily OTHER OUTSIDE [place] Hours LAB Average Vent OTHER OUTSIDE Rate during LAB AT/AF #BPM Average Vent OTHER OUTSIDE Rate During LAB AT/AF #Hours Remote Yes OTHER OUTSIDE Monitoring? LAB Daily [place] OTHER OUTSIDE Threshld Alert? LAB Average OTHER OUTSIDE Venticular Rate LAB AT/AF On/Off VF OTHER OUTSIDE Detection/Thera LAB py Off Remote Check? Yes OTHER OUTSIDE LAB Specimen Narrative Performed At OTHER OUTSIDE LAB Scheduled remote dual chamber pacemaker interrogation via [facility] received . See attached report. Events noted: Atrial:1,131 treated AT/AF events, 1,059 monitored AT/AF events,7.6% burden, longest 27min.[place] graph and episode list shows multiple back [...]
--- OUTSIDE RECORDS SUMMARY | 2018-12-05 14:40 | XMS REPORT | Encounter Summary ---
Author Author [facility] Organization [facility] Address Unknown Phone Unavailable Care Team Providers Care Senior Project Coordinator Name Role Phone Dorian Muse MD Unavailable Dagmar Lopes MD PCP Ernesto Sosa MD [address] MD Unavailable Unavailable Dana Birmingham RN Unavailable Unavailable Severiano Daniel DO Unavailable Reason for Visit * Reason Comments Remote Monitoring transfer remote monitoring to Dr Trejo? Questions Encounter Details Care Team Description Date Type Department Concha Sellers RN Remote Monitoring Questions (transfer remote monitoring to Dr Trejo?) 07/08/2014 Telephone [address] [address] Social History Date Tobacco Use Types [...] Telephone Encounter - Massiel Fink RN - 07/09/2014 3:47 PM AIRFIELD MANAGER Dipika called triage back this afternoon. She sent in a transmission approximatel y 1 hour ago. I told her if not rec'd or if there is a rhythm issue, someone wi ll call her. Dipika said that she will be traveling in approximately 3 weeks an d will be gone several weeks. Nathaly Fink RN, [facility] Central Process-Triage IELD MANAGER * Telephone Encounter - Natividad Rebollar, RN - 07/09/2014 12:04 PM AIRFIELD MANAGER I got message from Akanksha Malone questioning when pt's next remote transmission is due. LM on pt's cell ph# dtg Dipika that would have to verify remote transfer on [employer]. Checked website and info has been transferred. LM to go ahead and send in this week, will look for results. appologized for any confusion and that remote did not get scheduled. To call back if any questions. /benson shearer. IELD MANAGER * Telephone Encounter - Concha Sellers - 07/08/2014 3:09 PM AIRFIELD MANAGER Daughter calling to see if it is time to transmit. Patient has the flu and she is going to wait until to do the transmission because she doesn't want to be exposed to her until after . Patient had a heart catheterization at [facility] and she is asking if we received those documents. Routing to tatiana aviles to see if they received docs from Dr. Gruber's office. Daughter had req uested they be sent to [facility]. IELD MANAGER documented in this encounter Plan of Treatment Not on filedocumented as of this encounter Visit Diagnoses Not on filedocumented in this encounter
--- OUTSIDE RECORDS SUMMARY | 2018-12-05 14:40 | XMS REPORT | Encounter Summary ---
Author Author [facility] Organization [facility] Address Unknown Phone Unavailable Care Team Providers Care Poiser Name Role Phone Dorian Muse MD Unavailable Dagmar Lopes MD PCP Ernesto Sosa MD [address] MD Unavailable Unavailable Dana Birmingham RN Unavailable Unavailable Severiano Daniel DO Unavailable Reason for Visit * Reason Comments Lab Results Encounter Details Care Team Description Date Type Department Zulema Rachel MA Lab Results 04/10/2014 Documentation The [facility] [address] [place], [place] [address] Social History Date Tobacco Use Types Packs/Day [...] Name Priority Date/Time Associated Diagnosis CBC Routine 02/03/2014 THYROID STIMULATING Routine 02/03/2014 HORMONE-TSH FREE T4 (FREE THYROXINE) Routine 02/03/2014 ONLY HEMOGLOBIN A1C Routine 02/03/2014 LIPID PROFILE Routine 02/03/2014 COMPREHENSIVE METABOLIC Routine 02/03/2014 PANEL documented in this encounter Results * CBC (02/03/2014) White Blood 5.4 OTHER OUTSIDE Cells LAB RBC 4.85 OTHER OUTSIDE LAB Hemoglobin 14 OTHER OUTSIDE LAB Hematocrit 43 OTHER OUTSIDE LAB MCV 88 OTHER OUTSIDE LAB MCH 29 OTHER OUTSIDE LAB MCHC 33 OTHER OUTSIDE LAB Platelet Count 215 OTHER OUTSIDE LAB MPV OTHER OUTSIDE LAB RDW 14.7 (H) 11.5 - 14.5 OTHER OUTSIDE LAB Specimen Blood - Blood Narrative Performed At Performing Organization Address City/State/Zipcode Phone Number OTHER OUTSIDE LAB * COMPREHENSIVE METABOLIC PANEL (02/03/2014) Sodium 139 OTHER OUTSIDE LAB Potassium 4.2 OTHER OUTSIDE LAB Chloride 107 OTHER OUTSIDE LAB CO2 24.0 OTHER OUTSIDE LAB Blood Urea 21 OTHER OUTSIDE Nitrogen LAB Creatinine 0.9 OTHER OUTSIDE LAB Glucose 114 OTHER OUTSIDE LAB Calcium 8.8 OTHER OUTSIDE LAB Total Protein 6.6 OTHER OUTSIDE LAB Total Bilirubin 0.9 OTHER OUTSIDE LAB Albumin 3.8 OTHER OUTSIDE LAB Alk Phosphatase 66 OTHER OUTSIDE LAB AST (SGOT) 18 OTHER OUTSIDE LAB ALT (SGPT) 16 OTHER OUTSIDE LAB eGFR Non 66 OTHER OUTSIDE LAB [place] eGFR OTHER OUTSIDE [place] LAB Anion Gap 12 OTHER OUTSIDE LAB Specimen Blood - Blood Narrative Performed At Performing Organization Address City/State/Zipcode Phone Number OTHER OUTSIDE LAB * HEMOGLOBIN A1C (02/03/2014) Hemoglobin A1C 6.3 (H) 4.2 - 5.8 OTHER OUTSIDE LAB Specimen Blood - Blood Narrative Performed At Performing Organization Address City/State/Zipcode Phone Number OTHER OUTSIDE LAB * LIPID PROFILE (02/03/2014) Cholesterol 165 OTHER OUTSIDE LAB Triglycerides 230 (H) 35 - 200 OTHER OUTSIDE LAB HDL 38.0 OTHER OUTSIDE LAB LDL 81 OTHER OUTSIDE LAB VLDL OTHER OUTSIDE LAB Non HDL OTHER OUTSIDE Cholesterol LAB Cholesterol/HDL 4.3 OTHER OUTSIDE Ratio LAB Specimen Blood - Blood Narrative Performed At Performing Organization Address City/State/Zipcode Phone Number OTHER OUTSIDE LAB * FREE T4 (FREE THYROXINE) ONLY (02/03/2014) T4-Free 1.02 OTHER OUTSIDE LAB Specimen Blood - Blood Narrative Performed At Performing Organization Address City/State/Zipcode Phone Number OTHER OUTSIDE LAB * THYROID STIMULATING HORMONE-TSH (02/03/2014) TSH 3.70 OTHER OUTSIDE LAB Specimen Blood - Blood Narrative Performed At Performing Organization Address City/State/Zipcode Phone Number OTHER OUTSIDE LAB documented in this encounter Visit Diagnoses Not on filedocumented in this encounter
--- OUTSIDE RECORDS SUMMARY | 2018-12-05 14:40 | XMS REPORT | Encounter Summary ---
Author Author [facility] Organization [facility] Address Unknown Phone Unavailable Care Team Providers Care Tree And Shrub Technician Name Role Phone Dorian Muse MD Unavailable Dagmar Lopes MD PCP Ernesto Sosa MD [address] MD Unavailable Unavailable Dana Birmingham RN Unavailable Unavailable Severiano Daniel DO Unavailable Reason for Visit * Reason Comments Labs Only Encounter Details Care Team Description Date Type Department Zulema Rachel MA Labs Only 04/10/2014 Documentation The [facility] [address] [place], [place] [address] Social History Date Tobacco Use Types Packs/Day Years Used Never Smoker Smokeless Tobacco: Never Used Drinks/Week oz/Week Comments Alcohol Use No Sex Assigned at Date Recorded Not on file Industry Job Start Date Occupation Not on file Not on file Not on file Travel End Travel History Travel Start No recent travel history available. documented as of this encounter Plan of Treatment Date/Time Name Type Priority Associated Diagnoses 11/25/2013 CBC Lab Routine documented as of this encounter Procedures Comments Procedure Name Priority Date/Time Associated Diagnosis DIGOXIN LEVEL Routine 11/25/2013 COMPREHENSIVE METABOLIC Routine 11/25/2013 PANEL documented in this encounter Results * COMPREHENSIVE METABOLIC PANEL (11/25/2013) Sodium 136 [facility] Potassium 4.1 [facility] Chloride 103 [facility] CO2 27 [facility] Blood Urea 22 (H) 7 - 18 [facility] Creatinine 1.1 [facility] Glucose 115 (H) 74 - 106 [facility] Calcium 9.0 [facility] Total Protein 7.2 [facility] Total Bilirubin 1.1 (H) 0.1 - 1.0 [facility] Albumin 3.0 (L) 3.4 - 5.0 [facility] Alk Phosphatase 77 [facility] AST (SGOT) 25 [facility] ALT (SGPT) 38 [facility] eGFR Non 48 [facility] eGFR [facility] Anion Gap [facility] Specimen Blood - Blood Narrative Performed At Performing Organization Address [facility] Phone Number [facility] [phone] [place] [address] * DIGOXIN LEVEL (11/25/2013) Digoxin 0.5 (L) 0.9 - 2.0 [facility] Specimen Blood - Blood Narrative Performed At Performing Organization Address [facility] Phone Number [facility] [id number] [place] [address] documented in this encounter Visit Diagnoses Not on filedocumented in this encounter
--- OUTSIDE RECORDS SUMMARY | 2018-12-05 14:41 | XMS REPORT | Encounter Summary ---
Author Author [facility] Organization [facility] Address Unknown Phone Unavailable Care Team Providers Care Monorail Hooker Name Role Phone Dorian Muse MD Unavailable Dagmar Lopes MD PCP Ernesto Sosa MD [address] MD Unavailable Unavailable Dana Birmingham RN Unavailable Unavailable Severiano Daniel DO Unavailable Reason for Visit * Reason Comments Medication Problem Provider Discussion About Patient Encounter Details Care Team Description Date Type Department Ingris Phan RN Medication Problem; Provider Discussion About Patient 01/17/2014 Telephone [facility] [address] [place] [address] Social History Date Tobacco Use Types Packs/Day [...] encounter Miscellaneous Notes * Telephone Encounter - Kaley Rodarte RN - 01/17/2014 4:55 PM CDT MPE reviewed question. Based off device check from 01/06/14, she is at low risk t o be off Pradaxa for 3.5 days. Pt notified and verbalized understanding. She ask ed that I leave message for her daughter, Dipika, with this info at daughter's ho me number: [phone]. Left message. * Telephone Encounter - Ingris Phan RN - 01/17/2014 9:56 AM CDT Dtr Dipika called to report that somehow, her mom has run out of pradaxa before t he allowed 01/21/14 refill date. She took her last dose this morning. Unclear ho w pt came to be short pills. The medication comes loose with a tamper-proof sea led lid for a 30 day supply, which should include 60 pills, directly from the ma nufacturer. Dtr states that the [id number] cost for a supply of pills will be $300. She wonders what can be done for the 3.5 days that she will be out of me dication. She asks if increasing ASA to 325 mg for a few days will help keep he r anticoagulated. Her phone is [phone] (work #). She plans to keep tighter watch over her mo m's taking of medication in the future. She states her mom insists that she has not taken more meds than she is supposed to. Message routed to [id number] to discuss how to handle this situation. documented in this encounter Plan of Treatment Not on filedocumented as of this encounter Visit Diagnoses Not on filedocumented in this encounter
--- OUTSIDE RECORDS SUMMARY | 2018-12-05 14:41 | XMS REPORT | Encounter Summary ---
Author Author [facility] Organization [facility] Address Unknown Phone Unavailable Care Team Providers Care Precipitator Name Role Phone Dorian Muse MD Unavailable Dagmar Lopes MD PCP Ernesto Sosa MD [address] MD Unavailable Unavailable Dana Birmingham RN Unavailable Unavailable Severiano Daniel DO Unavailable Encounter Details Care Team Description Date Type Department Marty Trejo MD [address] [facility] [place] [address] [phone] 03/31/2014 [facility] [address] [place] [address] [address] [place] [address] Social History Date Tobacco Use Types Packs/Day [...] as 0 directed as Needed. 04/11/2012 05/04/2018 [place]-3 Acid Ethyl Esters Take 1 Cap by [...] Associated Diagnosis DEVICE EVALUATION - PPM Routine 03/31/2014 Paroxysmal atrial 9:49 AM CDT fibrillation documented in this encounter Results * DEVICE EVALUATION - PPM (03/31/2014 9:49 AM CDT) Generator OTHER OUTSIDE Buttonhole Facer LAB Other Generator Model REVO MRI [id number] OTHER OUTSIDE # LAB Generator [id number] OTHER OUTSIDE Serial # LAB Generator 10/18/2011 [...] Research OTHER OUTSIDE Comments 2 LAB FÉLIX/EOL RESOURCE PROTECTION SPECIALIST=2.81V OTHER OUTSIDE Indicator LAB Generator Medtronic OTHER OUTSIDE Buttonhole Facer LAB Generator No OTHER OUTSIDE Investigational LAB Wireless No OTHER OUTSIDE Generator LAB Device Type DDD-PM OTHER OUTSIDE LAB Other Implant OTHER OUTSIDE Info LAB Atrial Lead OTHER OUTSIDE Buttonhole Facer LAB Other Atrial Lead CAPSUREFIX MRI SURESCAN OTHER OUTSIDE Model # 5086-52cm LAB Atrial Lead [id number] OTHER OUTSIDE Serial # LAB Atrial Lead 10/18/2011 OTHER OUTSIDE Implant Date LAB Atrial Lead OTHER OUTSIDE Location Other LAB Atrial Lead OTHER OUTSIDE Polarity Other LAB Atrial Lead 10 OTHER OUTSIDE Diaph. LAB Stimulation Atrial Lead Medtronic OTHER OUTSIDE Buttonhole Facer LAB Atrial Lead No OTHER OUTSIDE Investigational LAB Atrial Lead active fixation OTHER OUTSIDE Fixation LAB Atrial Lead right atrial appendage OTHER OUTSIDE Location LAB Atrial Lead Pin IS1 OTHER OUTSIDE Connector LAB Atrial Lead Bipolar OTHER OUTSIDE Polarity LAB RV Lead OTHER OUTSIDE Buttonhole Facer LAB Other RV Lead Model # CAPSUREFIX MRI SURESCAN OTHER OUTSIDE 5086-58cm LAB RV Lead Serial [id number] OTHER OUTSIDE # LAB RV Lead Implant 10/18/2011 OTHER OUTSIDE Date LAB RV Lead OTHER OUTSIDE Location Other LAB RV Lead Diaph. 10 OTHER OUTSIDE Stimulation LAB RV Lead Medtronic OTHER OUTSIDE Buttonhole Facer LAB RV Lead No OTHER OUTSIDE Investigational LAB RV Lead active fixation OTHER OUTSIDE Fixation LAB RV Lead RV low septum OTHER OUTSIDE Location LAB RV Lead Pin IS1 OTHER OUTSIDE Connector ICD LAB RV Lead Coil OTHER OUTSIDE LAB LV Lead OTHER OUTSIDE Buttonhole Facer LAB Other LV Lead Model # OTHER OUTSIDE LAB LV Lead Serial OTHER OUTSIDE # LAB LV Lead Implant OTHER OUTSIDE Date LAB LV Lead OTHER OUTSIDE Location Other LAB LV Lead OTHER OUTSIDE Polarity Other LAB LV Lead OTHER OUTSIDE Configuration LAB Other LV Lead OTHER OUTSIDE Buttonhole Facer LAB LV Lead OTHER OUTSIDE Investigational LAB [...] Last 03/31/14 OTHER OUTSIDE Programming LAB Next OTHER OUTSIDE Programming LAB Check Due Date of Last 01/06/2014 OTHER OUTSIDE Interrogation LAB Date of Last OTHER OUTSIDE ICM Evaluation LAB Next ICM Check OTHER OUTSIDE Due LAB HF Patient No OTHER OUTSIDE LAB Date of Last OTHER OUTSIDE Remote Check LAB Next Remote OTHER OUTSIDE Check Due LAB Enrollment Date OTHER OUTSIDE LAB Date of OTHER OUTSIDE baseline remote LAB transmission AT/AF Daily OTHER OUTSIDE [place] Hours LAB Average Vent OTHER OUTSIDE Rate during LAB AT/AF #BPM Average Vent OTHER OUTSIDE Rate During LAB AT/AF #Hours Remote No OTHER OUTSIDE Monitoring? LAB Daily [place] OTHER OUTSIDE Threshld Alert? LAB Average OTHER OUTSIDE Venticular Rate LAB AT/AF On/Off VF OTHER OUTSIDE Detection/Thera LAB py Off # Mode S. OTHER OUTSIDE Events LAB # High AT/AF 125 OTHER OUTSIDE Evts LAB # High V Events 0 OTHER OUTSIDE LAB Time in AT/AF 3.5% OTHER OUTSIDE LAB V Rate in AT/AF 80's bpm OTHER OUTSIDE LAB Single PVSc 0.6 OTHER OUTSIDE LAB PVC runs 0.2 OTHER OUTSIDE LAB Battery Voltage 3.0 OTHER OUTSIDE LAB Estimated OTHER OUTSIDE Longevity LAB Magent Rate 85 OTHER OUTSIDE LAB A Sense mv 4.0 OTHER OUTSIDE LAB A Lead ohms 368 OTHER OUTSIDE LAB A Capture V 0.5 OTHER OUTSIDE LAB A Capture ms 0.4 OTHER OUTSIDE LAB Ao Voltage 2.0 OTHER OUTSIDE LAB AO Pulse Width 0.4 OTHER OUTSIDE LAB RV Sense mv 20.3 OTHER OUTSIDE LAB RV Lead ohms 560 OTHER OUTSIDE LAB RV Capture V 0.5 OTHER OUTSIDE LAB RV Capture ms 0.4 [...] OUTSIDE Reprogram LAB Comments Initial Rhythm at 71 bpm OTHER OUTSIDE LAB Underlying SB at 51 bpm OTHER OUTSIDE Rhythm LAB -VS% <0.1 OTHER OUTSIDE LAB -VETERINARY MEDICAL OFFICER% 4.3 OTHER OUTSIDE LAB -VS% 16.0 OTHER OUTSIDE LAB AP-VETERINARY MEDICAL OFFICER% 79.6 OTHER OUTSIDE LAB Initial Rhythm AP-VETERINARY MEDICAL OFFICER OTHER OUTSIDE LAB Device Function Yes OTHER OUTSIDE WNL LAB Device No OTHER OUTSIDE Reprogram LAB Programming? Yes OTHER OUTSIDE LAB Interrogation? OTHER OUTSIDE LAB Device Check by OTHER OUTSIDE Rep LAB Activity OTHER OUTSIDE LAB HRV (range ms) [...] Evaluated? Remote Check? No OTHER OUTSIDE LAB Specimen Narrative Performed At [03/31/2014 2:58:40 PM - [facility]] OTHER OUTSIDE LAB Dual chamber pacemaker programming. Device function appears normal. Events noted: Atrial: 125 AT/AF episodes, 101 treated. AT/AF burden 3.8% of the time. Several episodes converted successfully with ATP (1-29 sequence) but some episodes did not convert with ATP and eventually self terminated. Longest episode lasted 5 hrs on 03/04/14. Ventricular: None Report to Dr Trejo in clinic. Procedure Note Marty Trejo MD - 04/10/2014 5:41 PM CDT [03/31/2014 2:58:40 PM - [facility]] Dual chamber pacemaker programming. Device function appears normal. Events noted: Atrial: 125 AT/AF episodes, 101 treated. AT/AF burden 3.8% of the time. Several episodes converted successfully with ATP (1-29 sequence) but some episodes did not convert with ATP and eventually self terminated. Longest episode lasted 5 hrs on 03/04/14. Ventricular: None Report to Dr Trejo in clinic. Performing Organization Address City/State/Zipcode Phone Number OTHER OUTSIDE LAB documented in this encounter Visit Diagnoses Diagnosis Paroxysmal atrial fibrillation (HCC) Atrial fibrillation documented in this encounter
--- OUTSIDE RECORDS SUMMARY | 2018-12-05 14:41 | XMS REPORT | Encounter Summary ---
[facility] Address Unknown Phone Unavailable Care Team Providers Care Milking Machine Technician Name Role Phone Dorian Muse MD Unavailable Dagmar Lopes MD PCP Ernesto Ssoa MD 100 Melvin Monterroso MD Unavailable Unavailable Dana Birmingham RN Unavailable Unavailable Severiano Daniel DO Unavailable Reason for Visit * Reason Comments Atrial fibrillation Syncope Hypertension Cholesterol Encounter Details Care Team Description Date Type Department Marty Trejo MD [address] [address] Atrial fibrillation; Syncope; Hypertension; Cholesterol 03/31/2014 Office Visit [facility] [address] [place] [address] Social History Date Tobacco Use Types Packs/Day [...] Signs Reading Time Taken Comments Vital Sign 100/68 03/31/2014 9:23 AM CDT Blood Pressure 68 03/31/2014 9:08 AM CDT Pulse - - Temperature - - Respiratory Rate - - Oxygen Saturation - - Inhaled Oxygen Concentration 81.1 kg (178 lb 12.8 oz) 03/31/2014 9:08 AM CDT Weight 167.6 cm (5' 6") 03/31/2014 9:08 AM CDT Height 28.86 03/31/2014 9:08 AM CDT Body Mass Index documented in this encounter Patient Instructions * Patient Instructions* Zulema Rachel - 03/31/2014 10:56 AM CDT Follow up with Dr Trejo 6 months with device check documented in this encounter Progress Notes * Marty Trejo MD - 03/30/2014 12:22 PM CDT Faiza Nation is a 79 y.o. female. HPI I had the pleasure of seeing your patient Faiza Nation for follow-up in the [facility] as a part of the [facility] today. Ms. Nation is an exceptionally pleasant 79 y.o. female, who is accompanied by h er equally pleasant daughter, Dipika. She is followed and was originally referred by my friend and colleague Dr. 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 She apparently has had a GI bleed in the past on Warfarin. For Sxs of recurrent LHedness and palpitations she underwent Reveal ILR implant by Dr. Gruber ~2010. The ILR documented AIFB and some Bradycardia/pauses. She w as therefore referred and evaluated by Dr. Sosa. She was originally seen for PAFIB with frequent Sxic pauses in [address] Sosa . A Medtronic DDDR-PPM was implanted and she was initiated on Sotalol for her A FIB. Dr. Gruber followed her going forward. 2012 [...] percent to 50 percent with diffuse plaques. She had done well until 06/2013 when she was again referred for EP consultation f or recurrent Tachypalpitations and increased AFIB burden. At that time we initiated Anticoagulation and reinitiated Metoprolol. We also i ncreased her PPM LRL to 70 ppm. We planned to switch to Amiodarone if she kathrine nued to have frequent AFIB. 09/2013 OV, She had Sxs concerning for possible TIA. She underwent a head CT in [place] which was reportedly normal. Her digoxin level was elevated and her d osing was changed to every other day. Also, at that OV, her Device interrogation demonstrated that she had been a few episodes of short-lasting episodes of AFib. At that visit we chose to continue her on her Sotalol and Pradaxa. At her 01/06/14 OV, she was in NSR and denied any tachypalpitations. Her AFIB bur den remained reasonably low at 8%. However, in order to ensure that her Sxs of c hest and back tightness were not related to her AFIB, I asked her to keep a deta iled diary of activity/Sxs. I anticipated her chest and back tightness were like ly related to her Hiatal Hernia. I recommended she follow up with a GI specialis t. She does have relatively frequent V-pacing related to AV conduction disease. Her current complaints and status are discussed/described in the Assessment and Plan section below. She however denies any chest discomfort, shortness of breath, palpitations, ligh theadedness, dizziness, near syncope or syncope, PND or orthopnea. Assessment and Plan --Paroxysmal AFIB: Currently in NSR and she denies any tachypalpitations. Her A FIB burden remains low. No changes at this time. She remains on Sotalol and Prad axa. --Atypical Chest Pain: Recurred a few weeks ago while driving. She had a Cardiac Cath 12/2012 with nonobstructive disease. She is planning on initiating exercise this week. If she has any recurrent Sxs, she will contact Dr. Gruber's office. --Exercise: We discussed increasing upper body/arm strength and upper body exerc ise. I have asked her to communicate this with her Rehab center. --Markedly Prolonged First Degree AV Block during A-Pacing: She appears to be d oing reasonably well with activity. If she develops progressive GRIMES or other exe rtional Sxs, we will consider programming her DDDR with MVP off and a shorter AV delay. --Frequent V-Pacing: Given her underlying intrinsic NC interval of ~300 ms, I d id not make any changes in her AV delays, since she would need very prolonged in tervals which in and of itself could cause Sxs. See as above. --Cardiac Device in situ- implanted for sinus node dysfunction: Device is funct ioning well. --Dizzy Spells: She has PBV but no true LHedness. --Hypertension: Well-controlled blood pressures. We will continue her current m edications at this time. --Anticoagulation: Continues on Pradaxa. Filed Vitals: 03/31/14 0908 03/31/14 0923 BP: 100/64 100/68 Pulse: 68 Height: 1.676 m (5' 6") Weight: 81.103 kg (178 lb 12.8 oz) Body mass index is 28.87 kg/(m^2). Past Medical History Patient Active Problem List Diagnosis Date Noted Hiatal hernia 03/13/2013 Bradycardia 10/18/2011 10-18-11 Medtronic dual chamber PPM implanted by Dr. Sheila Saldivar. Sotalol initiation 10-18-11 Hypertension Hyperlipidemia 09/14/2011 Lipid Profile: Cholesterol: 171, Triglyceride: 132, HDL: 39, LDL: 10 6 Paroxysmal atrial fibrillation Hx of brief AF, CHADS score 2, ASA Hypothyroidism Dementia Anxiety Near syncope 09/16/2011 09/14/11 hospital admission to [facility] in [place], [place]. Reveal device [id number] implanted by Allyn Petit MD. Cardiac device in situ, other 08/18/2011 09/16/11 Reveal device 9529, Medtronic. ROS Cardiovascular: Positive for chest pain, irregular heartbeat and palpitations. Hematologic/Lymphatic: Bruises/bleeds easily. Musculoskeletal: Positive for arthritis, back pain, joint pain, joint swelling, muscle cramps and myalgias. Gastrointestinal: Positive for bloating, diarrhea, heartburn and hemorrhoids. Genitourinary: Positive for bladder incontinence. Neurological: Positive for vertigo. All other systems reviewed and are negative. Physical Exam Const: She is in no acute distress, resting comfortably. Neuro: Patient is alert and oriented. Resp: Clear to auscultation bilaterally. Cardiovascular: No evidence of increased jugular venous pressure, carotids are 2+/4+ equal bilaterally. Regular rhythm, S1, S2. 2/6 systolic murmur noted at the RUSB --> LLSB. No heaves, thrills or rubs. Device: is in her left infraclavicular region and well-healed. Extremities: without significant peripheral edema. Cardiovascular Studies ECG today demonstrates A-paced mostly with intrinsic conduction and occasional A V-Paced at 68 bpm with AV Dual Paced Complexes, First Degree AV Block, and Nonsp ecific Repolarization Abnormalities with T-Wave Inversion . NC 410 ms, QRSd 102 ms, QTc 469 ms. Full device check performed with reprogramming which I have extensively reviewed . Changes, if done, as discussed below and is detailed in other dictation/note. 96% A-Pacing, 84% V-Pacing, 125 High Atrial Rate Events for an AFIB burden of 3. 5%. Some of the AFIB is successfully ATP terminated. Her ventricular rate in SRINIVAS B is well controlled 98% of the time. Longest episode was ~2 hr and 16 minutes. EGM review demonstrates an atypical AFL/AFIB with CLs in the 160-270 ms range. Assessment and Plan As above. Ms. Nation [...] follow-up with me in 6 month(s) . Current Medications (including today's revisions) alprazolam (XANAX) 0.25 mg tablet Take 0.25 mg by mouth twice daily. amLODIPine (NORVASC) 5 mg tablet Take 5 mg by mouth daily. [DISCONTINUED] amLODIPine (NORVASC) 5 mg tablet Take 1 Tab by mouth daily. aspirin EC 81 mg tablet Take 81 mg by mouth daily. busPIRone (BUSPAR) 10 mg [...] mcg tablet Take 125 mcg by mouth daily. losartan (COZAAR) 100 mg tablet Take 100 mg by mouth Daily. meclizine (ANTIVERT) 25 mg tablet Take 25 mg by mouth as Needed. meloxicam(+) (MOBIC) 15 mg tablet Take 15 mg by mouth daily. metoprolol (LOPRESSOR) 25 mg tablet Take 0.5 Tabs by mouth twice daily. NYSTATIN (BULK) MISC Use 200 mg as directed as Needed. [place]-3 Acid Ethyl Esters (LOVAZA) 1 gram cap Take 1 Cap by mouth four times daily. omeprazole DR(+) (PRILOSEC) 40 mg capsule Take 40 mg by mouth daily. potassium chloride SR (K-DUR) 20 mEq tablet Take 40 mEq by mouth daily. sertraline (ZOLOFT) 50 mg tablet Take 50 mg by mouth daily. sotalol AF (BETAPACE AF) 120 mg Take 1 Tab by mouth twice daily. sucralfate (CARAFATE) 1 gram tablet Take 1 g by mouth every 6 hours as neede d. traMADol (ULTRAM) 50 mg tablet Take 50 mg by mouth every 6 hours as needed. Documentation recorded by Aileen Collins, acting as scribe for Marty Trejo M.D. documented in this encounter Miscellaneous Notes * Outside Records - SCANNED DOCUMENT - 07/11/2014 9:52 AM BUSINESS SYSTEMS ARCHITECT NESS SYSTEMS ARCHITECT * Outside Records - SCANNED DOCUMENT - 07/11/2014 9:52 AM BUSINESS SYSTEMS ARCHITECT NESS SYSTEMS ARCHITECT * Outside Records - SCANNED DOCUMENT - 07/11/2014 9:52 AM BUSINESS SYSTEMS ARCHITECT NESS SYSTEMS ARCHITECT * Outside Records - SCANNED DOCUMENT - 07/11/2014 9:52 AM BUSINESS SYSTEMS ARCHITECT NESS SYSTEMS ARCHITECT * Outside Records - SCANNED DOCUMENT - 07/11/2014 9:51 AM BUSINESS SYSTEMS ARCHITECT NESS SYSTEMS ARCHITECT * Outside Records - SCANNED DOCUMENT - 07/11/2014 9:51 AM BUSINESS SYSTEMS ARCHITECT NESS SYSTEMS ARCHITECT * Outside Records - SCANNED DOCUMENT - 07/11/2014 9:51 AM BUSINESS SYSTEMS ARCHITECT NESS SYSTEMS ARCHITECT * Outside Records - SCANNED DOCUMENT - 07/11/2014 9:41 AM BUSINESS SYSTEMS ARCHITECT NESS SYSTEMS ARCHITECT * Outside Records - SCANNED DOCUMENT - 07/11/2014 9:35 AM BUSINESS SYSTEMS ARCHITECT NESS SYSTEMS ARCHITECT * Admin - SCANNED DOCUMENT - 04/01/2014 7:33 AM CDT documented in this encounter Plan of Treatment Order Schedule Name Type Priority Associated Diagnoses Ordered: 03/31/2014 ECG 12-LEAD ECG Routine Bradycardia Expected: 03/31/2014 (Approximate), Expires: 03/31/2015 COMPREHENSIVE METABOLIC Lab Routine Bradycardia PANEL Expected: 03/31/2014 (Approximate), Expires: 03/31/2015 CBC AND DIFF Lab Routine Bradycardia Expected: 03/31/2014 (Approximate), Expires: 03/31/2015 DIGOXIN LEVEL Lab Routine Bradycardia documented as of this encounter Procedures Comments Procedure Name Priority Date/Time Associated Diagnosis ECG/QRS Routine 03/31/2014 9:27 AM CDT documented in this encounter Results * DEVICE EVALUATION - PPM (09/25/2014 12:54 PM CDT) Generator OTHER OUTSIDE Intervention Analyst LAB Other Generator Model REVO MRI RVDR01 OTHER OUTSIDE # LAB Generator [id number] OTHER OUTSIDE Serial # LAB Generator 10/18/2011 [...] Research OTHER OUTSIDE Comments 2 LAB FÉLIX/EOL STRAIGHT EDGER=2.81V OTHER OUTSIDE Indicator LAB Generator Medtronic OTHER OUTSIDE Intervention Analyst LAB Generator No OTHER OUTSIDE Investigational LAB Wireless No OTHER OUTSIDE Generator LAB Device Type DDD-PM OTHER OUTSIDE LAB Other Implant OTHER OUTSIDE Info LAB Atrial Lead OTHER OUTSIDE Intervention Analyst LAB Other Atrial Lead CAPSUREFIX MRI SURESCAN OTHER OUTSIDE Model # 5086-52cm LAB Atrial Lead [id number] OTHER OUTSIDE Serial # LAB Atrial Lead 10/18/2011 OTHER OUTSIDE Implant Date LAB Atrial Lead OTHER OUTSIDE Location Other LAB Atrial Lead OTHER OUTSIDE Polarity Other LAB Atrial Lead 10 OTHER OUTSIDE Diaph. LAB Stimulation Atrial Lead Medtronic OTHER OUTSIDE Intervention Analyst LAB Atrial Lead No OTHER OUTSIDE Investigational LAB Atrial Lead active fixation OTHER OUTSIDE Fixation LAB Atrial Lead right atrial appendage OTHER OUTSIDE Location LAB Atrial Lead Pin IS1 OTHER OUTSIDE Connector LAB Atrial Lead Bipolar OTHER OUTSIDE Polarity LAB RV Lead OTHER OUTSIDE Intervention Analyst LAB Other RV Lead Model # CAPSUREFIX MRI SURESCAN OTHER OUTSIDE 5086-58cm LAB RV Lead Serial [id number] OTHER OUTSIDE # LAB RV Lead Implant 10/18/2011 OTHER OUTSIDE Date LAB RV Lead OTHER OUTSIDE Location Other LAB RV Lead Diaph. 10 OTHER OUTSIDE Stimulation LAB RV Lead Medtronic OTHER OUTSIDE Intervention Analyst LAB RV Lead No OTHER OUTSIDE Investigational LAB RV Lead active fixation OTHER OUTSIDE Fixation LAB RV Lead RV low septum OTHER OUTSIDE Location LAB RV Lead Pin IS1 OTHER OUTSIDE Connector ICD LAB RV Lead Coil OTHER OUTSIDE LAB LV Lead OTHER OUTSIDE Intervention Analyst LAB Other LV Lead Model # OTHER OUTSIDE LAB LV Lead Serial OTHER OUTSIDE # LAB LV Lead Implant OTHER OUTSIDE Date LAB LV Lead OTHER OUTSIDE Location Other LAB LV Lead OTHER OUTSIDE Polarity Other LAB LV Lead OTHER OUTSIDE Configuration LAB Other LV Lead OTHER OUTSIDE Intervention Analyst LAB LV Lead OTHER OUTSIDE Investigational LAB [...] remote LAB transmission AT/AF Daily OTHER OUTSIDE [place] Hours LAB Average Vent OTHER OUTSIDE Rate during LAB AT/AF #BPM Average Vent OTHER OUTSIDE Rate During LAB AT/AF #Hours Remote Yes OTHER OUTSIDE Monitoring? LAB Daily [place] OTHER OUTSIDE Threshld Alert? LAB Average OTHER OUTSIDE Venticular Rate LAB AT/AF On/Off VF OTHER OUTSIDE Detection/Thera LAB py Off Device OTHER OUTSIDE Reprogram LAB Comments Initial Rhythm at 70 bpm OTHER OUTSIDE LAB Underlying SB at 40's bpm OTHER OUTSIDE Rhythm LAB -VS% <0.1% OTHER OUTSIDE LAB -ED EDUCATIONAL AIDE% 8.2% OTHER OUTSIDE LAB -VS% 7.3% OTHER OUTSIDE LAB AP-ED EDUCATIONAL AIDE% 84.4% OTHER OUTSIDE LAB Initial Rhythm AP-ED EDUCATIONAL AIDE OTHER OUTSIDE LAB Device Function Yes OTHER [...] LAB * DEVICE EVALUATION - REMOTE PPM (07/16/2014 9:43 AM BUSINESS SYSTEMS ARCHITECT) Generator OTHER OUTSIDE Intervention Analyst LAB Other Generator Model REVO MRI RVDR01 OTHER OUTSIDE # LAB Generator [id number] OTHER OUTSIDE Serial # LAB Generator 10/18/2011 [...] Research OTHER OUTSIDE Comments 2 LAB FÉLIX/EOL STRAIGHT EDGER=2.81V OTHER OUTSIDE Indicator LAB Generator Medtronic OTHER OUTSIDE Intervention Analyst LAB Generator No OTHER OUTSIDE Investigational LAB Wireless No OTHER OUTSIDE Generator LAB Device Type DDD-PM OTHER OUTSIDE LAB Other Implant OTHER OUTSIDE Info LAB Atrial Lead OTHER OUTSIDE Intervention Analyst LAB Other Atrial Lead CAPSUREFIX MRI SURESCAN OTHER OUTSIDE Model # 5086-52cm LAB Atrial Lead [id number] OTHER OUTSIDE Serial # LAB Atrial Lead 10/18/2011 OTHER OUTSIDE Implant Date LAB Atrial Lead OTHER OUTSIDE Location Other LAB Atrial Lead OTHER OUTSIDE Polarity Other LAB Atrial Lead 10 OTHER OUTSIDE Diaph. LAB Stimulation Atrial Lead Medtronic OTHER OUTSIDE Intervention Analyst LAB Atrial Lead No OTHER OUTSIDE Investigational LAB Atrial Lead active fixation OTHER OUTSIDE Fixation LAB Atrial Lead right atrial appendage OTHER OUTSIDE Location LAB Atrial Lead Pin IS1 OTHER OUTSIDE Connector LAB Atrial Lead Bipolar OTHER OUTSIDE Polarity LAB RV Lead OTHER OUTSIDE Intervention Analyst LAB Other RV Lead Model # CAPSUREFIX MRI SURESCAN OTHER OUTSIDE 5086-58cm LAB RV Lead Serial [id number] OTHER OUTSIDE # LAB RV Lead Implant 10/18/2011 OTHER OUTSIDE Date LAB RV Lead OTHER OUTSIDE Location Other LAB RV Lead Diaph. 10 OTHER OUTSIDE Stimulation LAB RV Lead Medtronic OTHER OUTSIDE Intervention Analyst LAB RV Lead No OTHER OUTSIDE Investigational LAB RV Lead active fixation OTHER OUTSIDE Fixation LAB RV Lead RV low septum OTHER OUTSIDE Location LAB RV Lead Pin IS1 OTHER OUTSIDE Connector ICD LAB RV Lead Coil OTHER OUTSIDE LAB LV Lead OTHER OUTSIDE Intervention Analyst LAB Other LV Lead Model # OTHER OUTSIDE LAB LV Lead Serial OTHER OUTSIDE # LAB LV Lead Implant OTHER OUTSIDE Date LAB LV Lead OTHER OUTSIDE Location Other LAB LV Lead OTHER OUTSIDE Polarity Other LAB LV Lead OTHER OUTSIDE Configuration LAB Other LV Lead OTHER OUTSIDE Intervention Analyst LAB LV Lead OTHER OUTSIDE Investigational LAB [...] remote LAB transmission AT/AF Daily OTHER OUTSIDE [place] Hours LAB Average Vent OTHER OUTSIDE Rate during LAB AT/AF #BPM Average Vent OTHER OUTSIDE Rate During LAB AT/AF #Hours Remote Yes OTHER OUTSIDE Monitoring? LAB Daily [place] OTHER OUTSIDE Threshld Alert? LAB Average OTHER OUTSIDE Venticular Rate LAB AT/AF On/Off VF OTHER OUTSIDE Detection/Thera LAB py Off Device OTHER OUTSIDE Reprogram LAB Comments Initial Rhythm AP- VS in the 80's OTHER OUTSIDE LAB Underlying OTHER OUTSIDE Rhythm LAB -VS% <0.1 OTHER OUTSIDE LAB -ED EDUCATIONAL AIDE% 8.1 OTHER OUTSIDE LAB -VS% 9.4 OTHER OUTSIDE LAB AP-ED EDUCATIONAL AIDE% 82.5 OTHER OUTSIDE LAB Initial Rhythm AP-VS [...] function appears normal. Events noted: Since 03/31/14 Atrial:[place] from 3.8 last check to 7.3% this [...] with <1second duration. Lead trends appear stable. [employer] remote monitoring is in place.This appears to be the pt's first transmission. The pt's dtr was notified it came through. Pt to see MPE 09/25/14. Will continue to monitor. Procedure Note Marty Trejo MD - 07/19/2014 2:00 PM BUSINESS SYSTEMS ARCHITECT [07/16/2014 9:47:58 AM - MANDY METCALF] Dual chamber pacemaker interrogation reviewed 07/09/14. Device function appears normal. Events noted: Since 03/31/14 Atrial: [place] from 3.8 last check to 7.3% this [...] Phone Number OTHER OUTSIDE LAB * ECG/QRS (03/31/2014 9:27 AM CDT) QRS DURATION 102 documented in this encounter Visit Diagnoses Diagnosis Bradycardia - Primary Other specified cardiac dysrhythmias Cardiac device in situ, other Other specified cardiac device in situ documented in this encounter
--- OUTSIDE RECORDS SUMMARY | 2018-12-05 14:42 | XMS REPORT | Encounter Summary ---
Author Author [facility] Organization [facility] Address Unknown Phone Unavailable Care Team Providers Care Hot Tamale Worker Name Role Phone Dorian Muse MD Unavailable Dagmar Lopes MD PCP Ernesto Sosa MD [address] Monterroso MD Unavailable Unavailable Dana Birmingham RN Unavailable Unavailable Severiano Daniel DO Unavailable Reason for Visit * Reason Comments Paroxysmal Afib Encounter Details Care Team Description Date Type Department Marty Trejo MD [address] [facility] [place], [place] [id number] Paroxysmal Afib 01/06/2014 Office Visit [facility] [address] [place], [place] [address] Social History Date Tobacco Use Types Packs/Day [...] Signs Reading Time Taken Comments Vital Sign 122/80 01/06/2014 10:18 AM CDT Blood Pressure 74 01/06/2014 10:11 AM CDT Pulse - - Temperature - - Respiratory Rate - - Oxygen Saturation - - Inhaled Oxygen Concentration 81.2 kg (179 lb 1.6 oz) 01/06/2014 10:11 AM CDT Weight 167.6 cm (5' 6") 01/06/2014 10:11 AM CDT Height 28.91 01/06/2014 10:11 AM CDT Body Mass Index documented in this encounter Patient Instructions * Patient Instructions* Zulema Rachel - 01/06/2014 11:30 AM CDT Follow up with Dr Trejo in 2-3 months with device check documented in this encounter Progress Notes * Marty Trejo MD - 01/05/2014 10:22 PM CDT Faiza Nation is a 78 y.o. female. HPI I had the pleasure of seeing your patient Faiza Nation for follow-up in the [facility] as a part of the [facility] [place] [facility] today. Ms. Nation is an exceptionally pleasant 78 y.o. female, who is accompanied by h er equally pleasant daughter Dipika. She is followed and was originally referred by my friend and colleague Dr. Gruber -- her primary assistant football coach in [place], [place]. 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 She apparently has had [...] TIA. She underwent a head CT in [place] which was reportedly normal. Her digoxin level was elevated and her d osing was changed to every other day. Also, at that OV, her Device interrogation demonstrated that she had been a few episodes of short-lasting episodes of AFib. At that visit we chose to continue her on her Sotalol and Pradaxa. Her current complaints and status are discussed/described in the Assessment and Plan section below. She however denies any chest discomfort, shortness of breath, palpitations, ligh theadedness, dizziness, near syncope or syncope, PND or orthopnea. Filed Vitals: 01/06/14 1011 01/06/14 1018 BP: 114/78 122/80 Pulse: 74 Height: 1.676 m (5' 6") Weight: 81.239 kg (179 lb 1.6 oz) Body mass index is 28.92 kg/(m^2). Past Medical History Patient Active Problem [...] Near syncope 09/16/2011 09/14/11 hospital admission to [facility] in [place], [place]. Reveal device 952 [id number] implanted by Allyn Petit MD. Cardiac device in situ, other 08/18/2011 09/16/11 Reveal device 9529, Medtronic. ROS HENT: Positive for ear pain and tinnitus. Eyes: Positive for photophobia and visual halos. Cardiovascular: Positive for claudication, dyspnea on exertion, irregular heartb eat and near-syncope. Respiratory: Positive for shortness of breath and sleep disturbances due to negrito thing. Hematologic/Lymphatic: Bruises/bleeds easily. Skin: Positive for dry skin and itching. Musculoskeletal: Positive for arthritis, joint pain, joint swelling, muscle cram ps and myalgias. Gastrointestinal: Positive for bloating, abdominal pain, heartburn and hemorrhoi ds. Genitourinary: Positive for bladder incontinence. Neurological: Positive for dizziness, light-headedness, numbness and vertigo. Psychiatric/Behavioral: The patient has insomnia. All other systems reviewed and are negative. Physical Exam She is in no acute distress, resting comfortably. Chest: Clear to auscultation bilaterally. Cardiovascular: No evidence of increased jugular venous pressure, carotids are 2+/4+ equal bilaterally. Regular rhythm, S1, S2. 2/6 systolic murmur noted at the RUSB-->LLSB. No heaves, thrills or rubs. Device: is in her left infraclavicular region and well-healed. Extremities: With trace peripheral edema. Cardiovascular Studies ECG today demonstrates AV-dual paced at 74 bpm with ID 168 ms, QRSd 156 ms, QTc 529 ms. Full device check performed with reprogramming which I have extensively reviewed . Changes, if done, as discussed below and is detailed in other dictation/note. 118 AT/AF episodes, longest episode 5 hours in duration on 10/10/13 with an AF bu rden of 8.3%. The episodes appear to have occurred in bunches. EGM review appe ars to demonstrated AFIB with V-paced rhythm. She has had ATACH/Atypical AFL an d in fact, of her 118 episodes 101 have successfully been paced terminated by he r device. She is 95% A-paced, 90% V-paced. 98-99% of the time her HR is below 100 bpm. Assessment and Plan --Paroxysmal AFIB: Currently in NSR and she denies any tachypalpitations. Although she has had a slight increase in her AF burden it is still low. Carlos laboy, I want to ensure that her Sxs of chest and back tightness are not related to her AFIB. Therefore I have asked her to keep a detailed diary of activity/Sxs. My suspicion that her chest and back pain is exceptionally low, but she is very anxious and needs reassurance. --Chest and Back Tightness: Likely related to her Hiatal Hernia. She had a Car diac Cath 12/2012 with nonobstructive disease. We will assess her Sxs to see if they correlate with her AFIB-- as above. I also have recommended that she follow up with a GI specialist. --Exertional Palpitations/Anxiety: She reports that her heart races when she tr ies to do her housework And tries to avoid it. I assured her that her V-rate d uring AFIB is well controlled (V-paced) and that the liklihood that she is havin g AFIB with RVR is very low. Therefore I have encouraged her to reinitiate her house work and activity. She will add any Sxs to her log so that we may further confirm this to her in follow up. --Frequent V-Pacing: Given her underlying intrinsic ID interval of ~300 ms, I d id not make any changes in her AV delays, since she would need very prolonged in tervals which in and of itself could cause Sxs. --Cardiac Device in situ- implanted for sinus node dysfunction: Device is funct ioning well. --Light-headed spells: Appear to have resolved. --Hypertension: Well-controlled blood pressures. We will continue her current m edications at this time. --Anticoagulation: Continue Pradaxa. Ms. Nation was educated regarding plan of [...] have scheduled her follow-up with me in 2 month(s) . Current Medications (including today's revisions) [...] Use 200 mg as directed as Needed. Hollywood-3 Acid Ethyl Esters (LOVAZA) 1 gram cap [...] 6 hours as needed. Documentation recorded by Jose Pierce, acting as scribe for Marty Trejo M.D. documented in this encounter Miscellaneous Notes * Outside Records - SCANNED DOCUMENT - 01/20/2014 4:08 PM CDT * Outside Records - SCANNED DOCUMENT - 01/20/2014 4:08 PM CDT * Admin - SCANNED DOCUMENT - 01/06/2014 2:04 PM CDT documented in this encounter Plan of Treatment Order Schedule Name Type Priority Associated Diagnoses Ordered: 01/06/2014 ECG 12-LEAD ECG Routine Paroxysmal atrial fibrillation documented as of this encounter Procedures Comments Procedure Name Priority Date/Time Associated Diagnosis ECG/QRS Routine 01/06/2014 10:22 AM CDT documented in this encounter Results * DEVICE EVALUATION - PPM (03/31/2014 9:49 AM CDT) Generator OTHER OUTSIDE Senior Water/Wastewater Engineer LAB Other Generator Model REVO MRI RVDR01 OTHER OUTSIDE # LAB Generator [id number] OTHER OUTSIDE Serial # LAB Generator 10/18/2011 [...] Research OTHER OUTSIDE Comments 2 LAB FÉLIX/EOL COMMERCIAL GLAZIER=2.81V OTHER OUTSIDE Indicator LAB Generator Medtronic OTHER OUTSIDE Senior Water/Wastewater Engineer LAB Generator No OTHER OUTSIDE Investigational LAB Wireless No OTHER OUTSIDE Generator LAB Device Type DDD-PM OTHER OUTSIDE LAB Other Implant OTHER OUTSIDE Info LAB Atrial Lead OTHER OUTSIDE Senior Water/Wastewater Engineer LAB Other Atrial Lead CAPSUREFIX MRI SURESCAN OTHER OUTSIDE Model # 5086-52cm LAB Atrial Lead [id number] OTHER OUTSIDE Serial # LAB Atrial Lead 10/18/2011 OTHER OUTSIDE Implant Date LAB Atrial Lead OTHER OUTSIDE Location Other LAB Atrial Lead OTHER OUTSIDE Polarity Other LAB Atrial Lead 10 OTHER OUTSIDE Diaph. LAB Stimulation Atrial Lead Medtronic OTHER OUTSIDE Senior Water/Wastewater Engineer LAB Atrial Lead No OTHER OUTSIDE Investigational LAB Atrial Lead active fixation OTHER OUTSIDE Fixation LAB Atrial Lead right atrial appendage OTHER OUTSIDE Location LAB Atrial Lead Pin IS1 OTHER OUTSIDE Connector LAB Atrial Lead Bipolar OTHER OUTSIDE Polarity LAB RV Lead OTHER OUTSIDE Senior Water/Wastewater Engineer LAB Other RV Lead Model # CAPSUREFIX MRI SURESCAN OTHER OUTSIDE 5086-58cm LAB RV Lead Serial [id number] OTHER OUTSIDE # LAB RV Lead Implant 10/18/2011 OTHER OUTSIDE Date LAB RV Lead OTHER OUTSIDE Location Other LAB RV Lead Diaph. 10 OTHER OUTSIDE Stimulation LAB RV Lead Medtronic OTHER OUTSIDE Senior Water/Wastewater Engineer LAB RV Lead No OTHER OUTSIDE Investigational LAB RV Lead active fixation OTHER OUTSIDE Fixation LAB RV Lead RV low septum OTHER OUTSIDE Location LAB RV Lead Pin IS1 OTHER OUTSIDE Connector ICD LAB RV Lead Coil OTHER OUTSIDE LAB LV Lead OTHER OUTSIDE Senior Water/Wastewater Engineer LAB Other LV Lead Model # OTHER OUTSIDE LAB LV Lead Serial OTHER OUTSIDE # LAB LV Lead Implant OTHER OUTSIDE Date LAB LV Lead OTHER OUTSIDE Location Other LAB LV Lead OTHER OUTSIDE Polarity Other LAB LV Lead OTHER OUTSIDE Configuration LAB Other LV Lead OTHER OUTSIDE Senior Water/Wastewater Engineer LAB LV Lead OTHER OUTSIDE Investigational LAB [...] remote LAB transmission AT/AF Daily OTHER OUTSIDE Emeigh Hours LAB Average Vent OTHER OUTSIDE Rate during LAB AT/AF #BPM Average Vent OTHER OUTSIDE Rate During LAB AT/AF #Hours Remote No OTHER OUTSIDE Monitoring? LAB Daily Emeigh OTHER OUTSIDE Threshld Alert? LAB Average OTHER [...] Rhythm LAB -VS% <0.1 OTHER OUTSIDE LAB -MEDICAL OFFICE CLERK% 4.3 OTHER OUTSIDE LAB -VS% 16.0 OTHER OUTSIDE LAB AP-MEDICAL OFFICE CLERK% 79.6 OTHER OUTSIDE LAB Initial Rhythm AP-MEDICAL OFFICE CLERK OTHER OUTSIDE LAB Device Function Yes OTHER [...] Phone Number OTHER OUTSIDE LAB * ECG/QRS (01/06/2014 10:22 AM CDT) QRS DURATION 156 documented in this encounter Visit Diagnoses Diagnosis Paroxysmal atrial fibrillation (HCC) - Primary Atrial fibrillation Bradycardia Other specified cardiac dysrhythmias Hypertension Unspecified essential hypertension documented in this encounter
--- OUTSIDE RECORDS SUMMARY | 2018-12-05 14:43 | XMS REPORT | Encounter Summary ---
Author Author [facility] Organization [facility] Address Unknown Phone Unavailable Care Team Providers Care Aquaculture Director Name Role Phone Dorian Muse MD Unavailable Dagmar Lopes MD PCP Ernesto Sosa MD [address] Monterroso MD Unavailable Unavailable Dana Birmingham RN Unavailable Unavailable Severiano Daniel DO Unavailable Reason for Visit * Reason Comments Remote Monitoring Request sent to transfer remote monitoring. Questions Encounter Details Care Team Description Date Type Department Brandon Alanis RN Remote Monitoring Questions (Request sent to transfer remote monitoring. ) 10/31/2013 Documentation The [address] [place] [address] Social History Date Tobacco Use Types Packs/Day Years Used Never Smoker Smokeless Tobacco: Never Used Drinks/Week oz/Week Comments Alcohol Use No Sex Assigned at Date Recorded Not on file Industry Job Start Date Occupation Not on file Not on file Not on file Travel End Travel History Travel Start No recent travel history available. documented as of this encounter Progress Notes * Brandon Alanis MA - 10/31/2013 3:52 PM CDT Patient currently enrolled in remote monitoring with [facility] rt Care in [place], [place]. Request sent via [facility] to transfer remote monitoring t o our practice. Will await the patients transfer and order new transmitter. DB. Contact Elva Sumner @ [phone]. * Brandon Alanis MA - 10/31/2013 3:52 PM CDT Natividad Rebollar RN - enroll carelink More Detail >> enroll carelink Natividad Rebollar RN Sent: MonOctober 30, 2013 3:17 PM To: P SCL Ep Remote Flags: Call patient Faiza Nation : 1935 Pt Home: Entered: [phone] Message Would like to be enrolled in carelink, per dtg. pls enroll ----- Message ----- From: Annie Alex Sent: 10/30/2013 1:06 PM To: Mac Ep Remote Please call dtr, states hasn't rec'd machine??(Dipika) Forwarded by: Natividad Rebollar RN Date: 10/30/2013 documented in this encounter Plan of Treatment Not on filedocumented as of this encounter Visit Diagnoses Not on filedocumented in this encounter
--- OUTSIDE RECORDS SUMMARY | 2018-12-05 14:43 | XMS REPORT | Encounter Summary ---
Author Author [facility] Organization [facility] Address Unknown Phone Unavailable Care Team Providers Care Concrete Finishing Machine Operator Name Role Phone Dorian Muse MD Unavailable Dagmar Lopes MD PCP Ernesto Sosa MD [address] Monterroso MD Unavailable Unavailable Dana Birmingham RN Unavailable Unavailable Severiano Daniel DO Unavailable Reason for Visit * Reason Comments Cardiac Device Remote Initial Carelink Rcvd Enrollment Encounter Details Care Team Description Date Type Department Bel Singh RN Cardiac Device Remote Enrollment (Initial Carelink Rcvd) 11/18/2013 Documentation [facility] [address] [place] [address] Social History Date Tobacco Use Types Packs/Day Years Used Never Smoker Smokeless Tobacco: Never Used Drinks/Week oz/Week Comments Alcohol Use No Sex Assigned at Date Recorded Not on file Industry Job Start Date Occupation Not on file Not on file Not on file Travel End Travel History Travel Start No recent travel history available. documented as of this encounter Progress Notes * Bel Singh - 11/18/2013 5:16 PM CDT 11/18/2013 Initial transmission rcvd. Presenting rhythm AP VS at 75 bpm 5 AT/AF episodes, AT/AF burden 3.4% (0.8hr/day) Average V rate 70's bpm. Pt AP 95% and MEAL MILLER 89% of the time. Pt has an appt with MPE 01/06/14 with full PM programming. Daughter notified transmission rcvd. Reviewed findings, pt takes pradaxa, digoxin, metoprolol, and betapace. Pt occasionally misses her second metoprolol dose. Medication compliance reviewe d. Daughter will encourage pt to take meds as instructed. She appreciates call. For transmission details see [employer] Carelink website at [email or web address] documented in this encounter Plan of Treatment Not on filedocumented as of this encounter Visit Diagnoses Not on filedocumented in this encounter
--- OUTSIDE RECORDS SUMMARY | 2018-12-05 14:43 | XMS REPORT | Encounter Summary ---
Author Author [facility] Organization [facility] Address Unknown Phone Unavailable Care Team Providers Care Claim Service Representative Name Role Phone Dorian Muse MD Unavailable Dagmar Lopes MD PCP Ernesto Sosa MD [address]terroso MD Unavailable Unavailable Dana Birmingham RN Unavailable Unavailable Severiano Daniel DO Unavailable Reason for Visit * Reason Comments Remote Monitoring to enroll in carelink Questions Encounter Details Care Team Description Date Type Department Natividad Rebollar RN Remote Monitoring Questions (to enroll in carelink) 10/30/2013 Telephone [facility] [address] [place] [address] [address] [place] [address] Social History Date Tobacco Use Types Packs/Day [...] encounter Miscellaneous Notes * Telephone Encounter - Natividad Rebollar RN - 10/30/2013 3:19 PM CDT Daughter Dipika called since she has not gotten the carelink monitor yet. I checked website, has not been enrolled, appologized for the delay, kira Get enrolled later this week, flag sent, she verbalized understanding, will send In Test once it iset up & notify us, benson HARRIS documented in this encounter Plan of Treatment Not on filedocumented as of this encounter Visit Diagnoses Not on filedocumented in this encounter
--- OUTSIDE RECORDS SUMMARY | 2018-12-05 14:43 | XMS REPORT | Encounter Summary ---
Author Author [facility] Organization [facility] Address Unknown Phone Unavailable Care Team Providers Care Tube Coverer Name Role Phone Dorian Muse MD Unavailable Dagmar Lopes MD PCP Ernesto Sosa MD [address] Monterroso MD Unavailable Unavailable Dana Birmingham RN Unavailable Unavailable Severiano Daniel DO Unavailable Encounter Details Care Team Description Date Type Department Marty Trejo MD [address] [facility] [place] [address] [phone] 01/06/2014 [facility] [address] [place] [address] 300 [place] [address] Social History Date Tobacco Use Types Packs/Day [...] as 0 directed as Needed. 04/11/2012 05/04/2018 [place]-3 Acid Ethyl Esters Take 1 Cap by [...] Associated Diagnosis DEVICE EVALUATION - PPM Routine 01/06/2014 Cardiac device in situ, 9:58 AM CDT other documented in this encounter Results * DEVICE EVALUATION - PPM (01/06/2014 9:58 AM CDT) Generator OTHER OUTSIDE Label Printer LAB Other Generator Model REVO MRI RVDR01 OTHER OUTSIDE # LAB Generator [id number] OTHER OUTSIDE Serial # LAB Generator 10/18/2011 [...] Research OTHER OUTSIDE Comments 2 LAB FÉLIX/EOL INDUCTION HEAT TREATER=2.81V OTHER OUTSIDE Indicator LAB Generator Medtronic OTHER OUTSIDE Label Printer LAB Generator No OTHER OUTSIDE Investigational LAB Wireless No OTHER OUTSIDE Generator LAB Device Type DDD-PM OTHER OUTSIDE LAB Other Implant OTHER OUTSIDE Info LAB Atrial Lead OTHER OUTSIDE Label Printer LAB Other Atrial Lead CAPSUREFIX MRI SURESCAN OTHER OUTSIDE Model # 5086-52cm LAB Atrial Lead [id number] OTHER OUTSIDE Serial # LAB Atrial Lead 10/18/2011 OTHER OUTSIDE Implant Date LAB Atrial Lead OTHER OUTSIDE Location Other LAB Atrial Lead OTHER OUTSIDE Polarity Other LAB Atrial Lead 10 OTHER OUTSIDE Diaph. LAB Stimulation Atrial Lead Medtronic OTHER OUTSIDE Label Printer LAB Atrial Lead No OTHER OUTSIDE Investigational LAB Atrial Lead active fixation OTHER OUTSIDE Fixation LAB Atrial Lead right atrial appendage OTHER OUTSIDE Location LAB Atrial Lead Pin IS1 OTHER OUTSIDE Connector LAB Atrial Lead Bipolar OTHER OUTSIDE Polarity LAB RV Lead OTHER OUTSIDE Label Printer LAB Other RV Lead Model # CAPSUREFIX MRI SURESCAN OTHER OUTSIDE 5086-58cm LAB RV Lead Serial [id number] OTHER OUTSIDE # LAB RV Lead Implant 10/18/2011 OTHER OUTSIDE Date LAB RV Lead OTHER OUTSIDE Location Other LAB RV Lead Diaph. 10 OTHER OUTSIDE Stimulation LAB RV Lead Medtronic OTHER OUTSIDE Label Printer LAB RV Lead No OTHER OUTSIDE Investigational LAB RV Lead active fixation OTHER OUTSIDE Fixation LAB RV Lead RV low septum OTHER OUTSIDE Location LAB RV Lead Pin IS1 OTHER OUTSIDE Connector ICD LAB RV Lead Coil OTHER OUTSIDE LAB LV Lead OTHER OUTSIDE Label Printer LAB Other LV Lead Model # OTHER OUTSIDE LAB LV Lead Serial OTHER OUTSIDE # LAB LV Lead Implant OTHER OUTSIDE Date LAB LV Lead OTHER OUTSIDE Location Other LAB LV Lead OTHER OUTSIDE Polarity Other LAB LV Lead OTHER OUTSIDE Configuration LAB Other LV Lead OTHER OUTSIDE Label Printer LAB LV Lead OTHER OUTSIDE Investigational LAB [...] OTHER OUTSIDE Dependant LAB Date of Last OTHER OUTSIDE Programming LAB Next OTHER OUTSIDE [...] remote LAB transmission AT/AF Daily OTHER OUTSIDE [employer] Hours LAB Average Vent OTHER OUTSIDE Rate during LAB AT/AF #BPM Average Vent OTHER OUTSIDE Rate During LAB AT/AF #Hours Remote No OTHER OUTSIDE Monitoring? LAB Daily [employer] OTHER OUTSIDE Threshld Alert? LAB Average OTHER OUTSIDE Venticular Rate LAB AT/AF On/Off VF OTHER OUTSIDE Detection/Thera LAB py Off # Mode S. OTHER OUTSIDE Events LAB # High AT/AF 118 OTHER OUTSIDE Evts LAB # High V Events 0 OTHER OUTSIDE LAB Time in AT/AF 3.8% OTHER OUTSIDE LAB V Rate in AT/AF OTHER OUTSIDE LAB Single PVSc 1.8 per hr OTHER OUTSIDE LAB PVC runs 0.1 per hr OTHER OUTSIDE LAB Battery Voltage 3.0 OTHER OUTSIDE LAB Estimated OTHER OUTSIDE Longevity LAB Magent Rate 85 OTHER OUTSIDE LAB A Sense mv 3.6 OTHER OUTSIDE LAB A Lead ohms 368 OTHER OUTSIDE LAB A Capture V OTHER OUTSIDE LAB A Capture ms OTHER OUTSIDE LAB Ao Voltage 2.0 OTHER OUTSIDE LAB AO Pulse Width 0.4 OTHER OUTSIDE LAB RV Sense mv 19.3 OTHER OUTSIDE LAB RV Lead ohms 544 OTHER OUTSIDE LAB RV Capture V OTHER [...] OUTSIDE Reprogram LAB Comments Initial Rhythm at 83 bpm OTHER OUTSIDE LAB Underlying SB at 56 bpm OTHER OUTSIDE Rhythm LAB -VS% <0.1 OTHER OUTSIDE LAB -COMMUNITY HEALTH CONSULTANT% 5.1 OTHER OUTSIDE LAB -VS% 9.1 OTHER OUTSIDE LAB AP-COMMUNITY HEALTH CONSULTANT% 85.7 OTHER OUTSIDE LAB Initial Rhythm AP-COMMUNITY HEALTH CONSULTANT OTHER OUTSIDE LAB Device Function Yes OTHER OUTSIDE WNL LAB Device No OTHER OUTSIDE Reprogram LAB Programming? OTHER OUTSIDE LAB Interrogation? Yes OTHER OUTSIDE [...] OTHER OUTSIDE LAB Specimen Narrative Performed At [01/06/2014 9:58:36 AM - [facility]] OTHER OUTSIDE LAB Dual chamber pacemaker interrogation. Device function appears normal. Events noted: Atrial:118 AT/AF episodes, 101 treated. AT/AF burden 3.8% of the time. Several episodes converted successfully with ATP (1-29 sequence) but most episodes did not convert with ATP and eventually self terminated. Longest episode lasted 5 hrs on 11/22/13. Ventricular:None Report to Dr Trejo in clinic. Procedure Note Marty Trejo MD - 01/06/2014 4:55 PM CDT [01/06/2014 9:58:36 AM - [facility]] Dual chamber pacemaker interrogation. Device function appears normal. Events noted: Atrial: 118 AT/AF episodes, 101 treated. AT/AF burden 3.8% of the time. Several episodes converted successfully with ATP (1-29 sequence) but most episodes did not convert with ATP and eventually self terminated. Longest episode lasted 5 hrs on 11/22/13. Ventricular: None Report to Dr Trejo in clinic. Performing Organization Address City/State/Zipcode Phone Number OTHER OUTSIDE LAB documented in this encounter Visit Diagnoses Diagnosis Cardiac device in situ, other Other specified cardiac device in situ documented in this encounter
--- OUTSIDE RECORDS SUMMARY | 2018-12-05 14:43 | XMS REPORT | Encounter Summary ---
Author Author [facility] Organization [facility] Address Unknown Phone Unavailable Care Team Providers Care Bellmaker Name Role Phone Dorian Muse MD Unavailable Dagmar Lopes MD PCP Ernesto Sosa MD [address]roso MD Unavailable Unavailable Dana Birmingham RN Unavailable Unavailable Severiano Daniel DO Unavailable Reason for Visit * Reason Comments Remote Monitoring Remote monitoring transferred. Order new transmitter. Questions Encounter Details Care Team Description Date Type Department Lety Alanis RN Remote Monitoring Questions (Remote monitoring transferred. Order new transmitter. ) 11/07/2013 Telephone The [address] [place] [address] Social History Date Tobacco Use Types Packs/Day [...] encounter Miscellaneous Notes * Telephone Encounter - Lety Alanis MA - 11/07/2013 11:14 AM CDT Pt [facility] remote monitoring was transferred to our practice. No initial transm ission ever received. See below. Ordered remote transmitter and mailed enrollmen t letter. DB. * Telephone Encounter - Lety Alanis MA - 11/07/2013 11:14 AM CDT Message copied by LETY ALANIS on MonNovember 07, 2013 11:14 AM ------ Message from: LETY ALANIS Created: MonOctober 31, 2013 3:54 PM Regarding: Follow up Pt was enrolled with [facility]. Sent request on to transfer. Has pt been transferred yet? If not, call and FU. Thanks ----- Message ----- From: Natividad Rebollar RN Sent: 10/30/2013 3:17 PM To: Mac Ep Remote Subject: enroll carelink Would like to be enrolled in carelink, per dtg. pls enroll ----- Message ----- From: Annie Alex Sent: 10/30/2013 1:06 PM To: Mac Ep Remote Please call dtr, states hasn't rec'd machine??(Dipika) documented in this encounter Plan of Treatment Not on filedocumented as of this encounter Visit Diagnoses Not on filedocumented in this encounter
--- OUTSIDE RECORDS SUMMARY | 2018-12-05 14:43 | XMS REPORT | Encounter Summary ---
Author Author [facility] Organization [facility] Address Unknown Phone Unavailable Care Team Providers Care Audit Lead Name Role Phone Dorian Muse MD Unavailable Dagamr Lopes MD PCP Ernesto Sosa MD [address] MD Unavailable Unavailable Dana Birmingham RN Unavailable Unavailable Severiano Daniel DO Unavailable Reason for Visit * Reason Comments Remote Monitoring Return call placed to cell # and LMM. Informed pt that transmission has Questions been received. Encounter Details Care Team Description Date Type Department David Saldana Remote Monitoring Questions (Return call placed to cell # and LMM. Informed pt that transmission has been received. ) 11/18/2013 Telephone The [facility] [address] [facility] [address] [place] [address] Social History Date Tobacco Use Types Packs/Day [...] encounter Miscellaneous Notes * Telephone Encounter - David Saldana - 11/18/2013 3:14 PM CDT Message copied by DAVID SALDANA on MonNov 18, 2013 3:14 PM ------ Message from: LESTER DRISCOLL Created: MonNov 18, 2013 2:25 PM Contact: Who called? Patient just made her 1st transmission. Please call. Nature of the call: Please do the following for the patient: documented in this encounter Plan of Treatment Not on filedocumented as of this encounter Visit Diagnoses Not on filedocumented in this encounter
--- OUTSIDE RECORDS SUMMARY | 2018-12-05 14:43 | XMS REPORT | Encounter Summary ---
Author Author [facility] Organization [facility] Address Unknown Phone Unavailable Care Team Providers Care Lay Out Inspector Name Role Phone Dorian Muse MD Unavailable Dagmar Lopes MD PCP Ernesto Sosa MD [address] MD Unavailable Unavailable Dana Birmingham RN Unavailable Unavailable Severiano Daniel DO Unavailable Encounter Details Care Team Description Date Type Department Marty Trejo MD [address] [phone] 10/10/2013 [facility] [address] [phone] Social History Date Tobacco Use Types Packs/Day [...] (VITAMIN D-3) mouth daily. 180-5,000 mg-unit Tab 01/06/2014 COLESTIPOL HCL Take by 0 (COLESTIPOL PO) mouth. Pt has last dose tomorrow- 10/1109/25/2014 levothyroxine (SYNTHROID) Take 125 mcg 0 125 mcg tablet by mouth daily. 05/18/2017 meclizine (ANTIVERT) 25 Take 25 mg by 0 mg tablet mouth as Needed. 07/08/2013 05/18/2017 metoprolol (LOPRESSOR) 25 Take 0.5 Tabs 180 Tab 3 mg tablet by mouth twice daily. 05/18/2017 NYSTATIN (BULK) MISC Use 200 mg as 0 directed as Needed. 04/11/2012 05/04/2018 [place]-3 Acid Ethyl Esters Take 1 Cap by [...] Associated Diagnosis DEVICE EVALUATION - PPM Routine 10/10/2013 Cardiac device in situ, 10:25 AM CDT other documented in this encounter Results * DEVICE EVALUATION - PPM (10/10/2013 10:25 AM CDT) Generator OTHER OUTSIDE [facility] Other Generator Model REVO MRI [id number] OTHER OUTSIDE # LAB Generator [id number] OTHER OUTSIDE Serial # LAB Generator 10/18/2011 [...] Research OTHER OUTSIDE Comments 2 LAB FÉLIX/EOL SPRING ASSEMBLER=2.81V OTHER OUTSIDE Indicator LAB Generator Medtronic OTHER OUTSIDE [facility] Generator No OTHER OUTSIDE Investigational LAB Wireless No OTHER OUTSIDE Generator LAB Device Type DDD-PM OTHER OUTSIDE LAB Other Implant OTHER OUTSIDE Info LAB Atrial Lead OTHER OUTSIDE [facility] Other Atrial Lead CAPSUREFIX MRI SURESCAN OTHER OUTSIDE Model # 5086-52cm LAB Atrial Lead [id number] OTHER OUTSIDE Serial # LAB Atrial Lead 10/18/2011 OTHER OUTSIDE Implant Date LAB Atrial Lead OTHER OUTSIDE Location Other LAB Atrial Lead OTHER OUTSIDE Polarity Other LAB Atrial Lead 10 OTHER OUTSIDE Diaph. LAB Stimulation Atrial Lead Medtronic OTHER OUTSIDE [facility] Atrial Lead No OTHER OUTSIDE Investigational LAB Atrial Lead active fixation OTHER OUTSIDE Fixation LAB Atrial Lead right atrial appendage OTHER OUTSIDE Location LAB Atrial Lead Pin IS1 OTHER OUTSIDE Connector LAB Atrial Lead Bipolar OTHER OUTSIDE Polarity LAB RV Lead OTHER OUTSIDE [facility] Other RV Lead Model # CAPSUREFIX MRI SURESCAN OTHER OUTSIDE 5086-58cm LAB RV Lead Serial [id number] OTHER OUTSIDE # LAB RV Lead Implant 10/18/2011 OTHER OUTSIDE Date LAB RV Lead OTHER OUTSIDE Location Other LAB RV Lead Diaph. 10 OTHER OUTSIDE Stimulation LAB RV Lead Medtronic OTHER OUTSIDE [facility] RV Lead No OTHER OUTSIDE Investigational LAB RV Lead active fixation OTHER OUTSIDE Fixation LAB RV Lead RV low septum OTHER OUTSIDE Location LAB RV Lead Pin IS1 OTHER OUTSIDE Connector ICD LAB RV Lead Coil OTHER OUTSIDE LAB LV Lead OTHER OUTSIDE [facility] Other LV Lead Model # OTHER OUTSIDE LAB LV Lead Serial OTHER OUTSIDE # LAB LV Lead Implant OTHER OUTSIDE Date LAB LV Lead OTHER OUTSIDE Location Other LAB LV Lead OTHER OUTSIDE Polarity Other LAB LV Lead OTHER OUTSIDE Configuration LAB Other LV Lead OTHER OUTSIDE [facility] LV Lead OTHER OUTSIDE Investigational LAB [...] OTHER OUTSIDE Dependant LAB Date of Last 07/08/2013 OTHER OUTSIDE Programming LAB Next OTHER OUTSIDE Programming LAB Check Due Date of Last 10/09/2013 OTHER OUTSIDE Interrogation LAB Date of Last OTHER OUTSIDE ICM Evaluation LAB Next ICM Check OTHER OUTSIDE Due LAB HF Patient No OTHER OUTSIDE LAB Date of Last OTHER OUTSIDE Remote Check LAB Next Remote OTHER OUTSIDE Check Due LAB Enrollment Date OTHER OUTSIDE LAB Date of OTHER OUTSIDE baseline remote LAB transmission AT/AF Daily OTHER OUTSIDE [facility] Hours LAB Average Vent OTHER OUTSIDE Rate during LAB AT/AF #BPM Average Vent OTHER OUTSIDE Rate During LAB AT/AF #Hours Remote No OTHER OUTSIDE Monitoring? LAB Daily [place] OTHER OUTSIDE Threshld Alert? LAB Average OTHER OUTSIDE Venticular Rate LAB AT/AF On/Off VF OTHER OUTSIDE Detection/Thera LAB py Off Device OTHER OUTSIDE Reprogram LAB Comments Initial Rhythm OTHER OUTSIDE LAB Underlying OTHER OUTSIDE Rhythm LAB -VS% <0.1 OTHER OUTSIDE LAB -DIGITAL CONTENT COORDINATOR% 1.6 OTHER OUTSIDE LAB -VS% 10.2 OTHER OUTSIDE LAB AP-DIGITAL CONTENT COORDINATOR% 88.1 OTHER OUTSIDE LAB Initial Rhythm OTHER OUTSIDE LAB Device Function Yes OTHER OUTSIDE WNL LAB Device No OTHER OUTSIDE Reprogram LAB Programming? No OTHER OUTSIDE LAB Interrogation? Yes OTHER OUTSIDE LAB Device Check by OTHER OUTSIDE Rep LAB # Mode S. 6 OTHER OUTSIDE Events LAB # High AT/AF OTHER OUTSIDE Evts LAB # High V Events 0 OTHER OUTSIDE LAB Time in AT/AF 0.4% OTHER OUTSIDE LAB V Rate in AT/AF OTHER OUTSIDE LAB Single PVSc 0.7/hr OTHER OUTSIDE LAB PVC runs <0.1/hr OTHER OUTSIDE LAB Battery Voltage 3.00 OTHER OUTSIDE LAB Estimated OTHER OUTSIDE Longevity LAB Magent Rate OTHER OUTSIDE LAB A Sense mv 3.4 OTHER OUTSIDE LAB A Lead ohms 384 OTHER OUTSIDE LAB A Capture V OTHER OUTSIDE LAB A Capture ms OTHER OUTSIDE LAB Ao Voltage 2.0 OTHER OUTSIDE LAB AO Pulse Width 0.4 OTHER OUTSIDE LAB RV Sense mv 19.7 OTHER OUTSIDE LAB RV Lead ohms 568 OTHER OUTSIDE LAB RV Capture V OTHER [...] Saved to Disc No OTHER OUTSIDE LAB Activity 1.7 hr/d OTHER OUTSIDE LAB HRV (range ms) OTHER OUTSIDE LAB FL IND RANGE OTHER OUTSIDE (Last Fluid LAB Index Range) FL IND OTHER OUTSIDE TODAY(Today LAB Fluid Index Value) THOR IMP OTHER OUTSIDE RANGE(Last LAB Optivol Thoracic Impedence Range) THOR IMP OTHER OUTSIDE TODAY(Today's LAB Optivol Thoracic Impedence Value) ICM Evaluation OTHER OUTSIDE LAB Thoracic OTHER OUTSIDE Impedance LAB Evaluated? Specimen Narrative Performed At Dual chamber pacemaker interrogation.Device function appears normal. OTHER OUTSIDE LAB Events noted: Atrial:6 AT/AF events noted for 0.4% SINCE 09/26/2013--SHE DID NOT HAVE HER DEVICE CHECKED ON 09/26 BY MAC OR AT [facility]. 5 events noted 10/09 03:06-03:20. 03:06 lasted approx 4.5 mins, treated with ATP x7. 03:13 for 27 secs. 03:15 for 35 secs. 03:17 for approx 2.5 mins, treated with ATP x3. 03:20 for approx 70 mins, treated with ATP x28. Today, pt is -DIGITAL CONTENT COORDINATOR and PP-DIGITAL CONTENT COORDINATOR. 09/28 an event was noted at 22:53 for 30 secs. Ventricular:none Will continue to monitor. Procedure Note Marty Trejo MD - 10/10/2013 5:37 PM CDT Dual chamber pacemaker interrogation. Device function appears normal. Events noted: Atrial: 6 AT/AF events noted for 0.4% SINCE 09/26/2013--SHE DID NOT HAVE HER DEVICE CHECKED ON 09/26 BY MAC OR AT [facility]. 5 events noted 10/09 03:06-03:20. 03:06 lasted approx 4.5 mins, treated with ATP x7. 03:13 for 27 secs. 03:15 for 35 secs. 03:17 for approx 2.5 mins, treated with ATP x3. 03:20 for approx 70 mins, treated with ATP x28. Today, pt is -DIGITAL CONTENT COORDINATOR and PP-DIGITAL CONTENT COORDINATOR. 09/28 an event was noted at 22:53 for 30 secs. Ventricular: none Will continue to monitor. Performing Organization Address City/State/Zipcode Phone Number OTHER OUTSIDE LAB documented in this encounter Visit Diagnoses Diagnosis Cardiac device in situ, other Other specified cardiac device in situ documented in this encounter
--- OUTSIDE RECORDS SUMMARY | 2018-12-05 14:44 | XMS REPORT | Encounter Summary ---
Author Author [facility] Organization [facility] Address Unknown Phone Unavailable Care Team Providers Care Irrigation Laborer Name Role Phone Dorian Muse MD Unavailable Dagmar Lopes MD PCP Ernesto Sosa MD [address] MD Unavailable Unavailable Dana Birmingham RN Unavailable Unavailable Severiano Daniel DO Unavailable Reason for Visit * Reason Comments Other Request prior auth for Pradaxa Encounter Details Care Team Description Date Type Department Tracee Marroquin, RN Other (Request prior auth for Pradaxa) 07/08/2013 Telephone The [address] [phone] Social History Date Tobacco Use Types Packs/Day Years Used Never Smoker Smokeless Tobacco: Never Used Drinks/Week oz/Week Comments Alcohol Use No Sex Assigned at Date Recorded Not on file Industry Job Start Date Occupation Not on file Not on file Not on file Travel End Travel History Travel Start No recent travel history available. documented as of this encounter Miscellaneous Notes * Outside Records - SCANNED DOCUMENT - 07/10/2013 12:09 PM TRANSITIONAL KINDERGARTEN TEACHER SITIONAL KINDERGARTEN TEACHER * Telephone Encounter - Tracee Marroquin - 07/09/2013 12:13 PM TRANSITIONAL KINDERGARTEN TEACHER Pt's daughter requests prior auth for Pradaxa as Eliquis is too expensive. She later calls back and states that PCP office did prior auth for them. SITIONAL KINDERGARTEN TEACHER documented in this encounter Plan of Treatment Not on filedocumented as of this encounter Visit Diagnoses Not on filedocumented in this encounter
--- OUTSIDE RECORDS SUMMARY | 2018-12-05 14:44 | XMS REPORT | Encounter Summary ---
Author Author [facility] Organization [facility] Address Unknown Phone Unavailable Care Team Providers Care Cemetery Keeper Name Role Phone Dorian Muse MD Unavailable Dagmar Lopes MD PCP Ernesto Sosa MD [address] MD Unavailable Unavailable Dana Birmingham RN Unavailable Unavailable Severiano Daniel DO Unavailable Encounter Details Care Team Description Date Type Department Marty Trejo MD [address] [phone] 07/08/2013 [facility] [address] [phone] Social History Date Tobacco Use Types Packs/Day [...] tablet by mouth twice daily as needed. 07/08/2013 digoxin (LANOXIN) 125 mcg Take 1 [...] 0 gram tablet mouth at bedtime daily. 10/10/2013 amLODIPine (NORVASC) 5 mg Take 5 mg by 0 tablet mouth daily. 04/10/2012 04/06/2015 amLODIPine (NORVASC) 5 mg Take 1 Tab by 90 Tab 1 tablet mouth daily. 07/08/2013 10/10/2013 apixaban(+) (ELIQUIS) 5 Take 1 Tab by 180 Tab 4 mg tab tablet mouth twice daily. 11/25/2011 10/10/2013 aspirin 325 mg tablet Take 1 Tab by 90 Tab 3 mouth daily. 06/05/2015 busPIRone (BUSPAR) 10 mg [...] as 0 directed as Needed. 04/11/2012 05/04/2018 [place]-3 Acid Ethyl Esters Take 1 Cap by [...] as needed. documented as of this encounter Progress Notes * Aurea Reyes RN - 07/08/2013 4:18 PM LEGAL COMPLIANCE OFFICER Quick Note: Will be reviewed in clinic tomorrow with MPE L COMPLIANCE OFFICER documented in this encounter Plan of Treatment Not on filedocumented as of this encounter Procedures Comments Procedure Name Priority Date/Time Associated Diagnosis CBC Routine 07/08/2013 Paroxysmal atrial 9:52 AM LEGAL COMPLIANCE OFFICER fibrillation DIGOXIN LEVEL STAT 07/08/2013 Paroxysmal atrial 9:52 AM LEGAL COMPLIANCE OFFICER fibrillation COMPREHENSIVE METABOLIC Routine 07/08/2013 Paroxysmal atrial PANEL 9:52 AM LEGAL COMPLIANCE OFFICER fibrillation documented in this encounter Results * DIGOXIN LEVEL (07/08/2013 9:52 AM LEGAL COMPLIANCE OFFICER) Digoxin 1.2 (H) 0.5 - 1.0 NG/ML [facility] Specimen Blood - Blood Performing Organization Address City/State/Zipcode Phone Number MAIN LAB [address] [place] [address] * COMPREHENSIVE METABOLIC PANEL (07/08/2013 9:52 AM LEGAL COMPLIANCE OFFICER) Sodium 140 137 - 147 MMOL/L [facility] Potassium 3.7 3.5 - 5.1 MMOL/L [facility] Chloride 107 98 - 110 MMOL/L [facility] Glucose 144 (H) 70 - 100 MG/DL [facility] Blood Urea 18 7 - 25 MG/DL [facility] Nitrogen Creatinine 1.02 (H) 0.4 - 1.00 MG/DL [facility] Calcium 9.2 8.6 - 10.3 MG/DL [facility] Total Protein 7.6 6.0 - 8.0 G/DL [facility] Total Bilirubin 0.8 0.3 - 1.2 MG/DL [facility] Albumin 4.3 3.5 - 5.0 G/DL [facility] Alk Phosphatase 65 25 - 110 U/L [facility] AST (SGOT) 20 7 - 40 U/L [facility] CO2 25 21 - 30 MMOL/L [facility] ALT (SGPT) 20 7 - 56 U/L [facility] Anion Gap 8 8 - 12 [facility] eGFR Non 52 (L) >60 ML/MIN/1.73 SQM [facility] Comment: [place] The eGFR is not validated for use in drug dosing adjustments.Continue to use estimated creatinine clearance per dosing reference text.Please contact the Clinical Pharmacist for questions. eGFR >60 >60 ML/MIN/1.73 SQM [facility] [place] Comment: The eGFR is not validated for use in drug dosing adjustments.Continue to use estimated creatinine clearance per dosing reference text.Please contact the Clinical Pharmacist for questions. Specimen Blood - Blood Performing Organization Address City/[facility]/Zipcode Phone Number [facility] [address] [place] [address] * CBC (07/08/2013 9:52 AM LEGAL COMPLIANCE OFFICER) White Blood 9.2 4.5 - 11.0 K/UL [facility] Cells RBC 5.44 (H) 4.0 - 5.0 M/UL [facility] Hemoglobin 14.8 12.0 - 15.0 GM/DL [facility] Hematocrit 46.4 (H) 36 - 45 % [facility] MCV 85.2 80 - 100 FL [facility] MCH 27.2 26 - 34 PG [facility] MCHC 31.9 (L) 32.0 - 36.0 G/DL [facility] RDW 17.9 (H) 11 - 15 % [facility] Platelet Count 255 150 - 400 K/UL [facility] MPV 7.9 7 - 11 FL [facility] Specimen Blood - Blood Performing Organization Address City/[facility]/Zipcode Phone Number MAIN LAB [address] [place] [address] documented in this encounter Visit Diagnoses Diagnosis Paroxysmal atrial fibrillation (HCC) Atrial fibrillation documented in this encounter
--- OUTSIDE RECORDS SUMMARY | 2018-12-05 14:44 | XMS REPORT | Encounter Summary ---
Author Author [facility] Organization [facility] Address Unknown Phone Unavailable Care Team Providers Care Cupola Tender Helper Name Role Phone Dorian Muse MD Unavailable Dagmar Lopes MD PCP Ernesto Sosa MD [address]terroso MD Unavailable Unavailable Dana Birmingham RN Unavailable Unavailable Severiano Daniel DO Unavailable Reason for Visit * Reason Comments Medication Titration Digoxin every other day Encounter Details Care Team Description Date Type Department Tracee Marroquin, insole rasper Titration (Digoxin every other day) 07/08/[address] [facility] [address] [facility] [place] [address] Social History Date Tobacco Use Types Packs/Day Years Used Never Smoker Smokeless Tobacco: Never Used Drinks/Week oz/Week Comments Alcohol Use No Sex Assigned at Date Recorded Not on file Industry Job Start Date Occupation Not on file Not on file Not on file Travel End Travel History Travel Start No recent travel history available. documented as of this encounter Progress Notes * Tracee Marroquin - 07/08/2013 4:38 PM SOFTWARE APPLICATIONS DEVELOPER Labs reviewed by KEN. LMFRANKY instructing pt to decrease digoxin to every other day . WARE APPLICATIONS DEVELOPER documented in this encounter Plan of Treatment Not on filedocumented as of this encounter Visit Diagnoses Not on filedocumented in this encounter
--- OUTSIDE RECORDS SUMMARY | 2018-12-05 14:44 | XMS REPORT | Encounter Summary ---
Author Author [facility] Organization [facility] Address Unknown Phone Unavailable Care Team Providers Care Embalmer Apprentice Name Role Phone Dorian Muse MD Unavailable Dagmar Lopes MD PCP Ernesto Sosa MD [address]ter[address] MD Unavailable Unavailable Dana Birmingham RN Unavailable Unavailable Severiano Daniel DO Unavailable Reason for Visit * Reason Comments Medication Question pt has been taking metoprolol 25mg bid rather than 12.5mg bid Encounter Details Care Team Description Date Type Department Heavenly Betts RN Medication Question (pt has been taking metoprolol 25mg bid rather than 12.5mg bid) 08/19/2013 Telephone The [address] [place] [address] Social History Date Tobacco Use Types Packs/Day [...] encounter Miscellaneous Notes * Telephone Encounter - Heavenly Betts RN - 08/19/2013 11:24 AM RESIDENTIAL COUNSELOR Spoke to daughter. She confirms her mother has been taking metoprolol 25mg po bi d, rather than 12.5mg po bid. She states her mom has been doing well. Denies any symptoms of fatigue, dizziness, syncope, etc. She will start halfing the tabs so that pt gets correct dose. DENTIAL COUNSELOR * Telephone Encounter - Heavenly Betts RN - 08/19/2013 11:24 AM RESIDENTIAL COUNSELOR Message copied by HEAVENLY BETTS on MonAug 19, 2013 11:24 AM ------ Message from: OSVALDO MCQUEEN Created: MonAug 19, 2013 11:09 AM Regarding: i called and spoke to daughter, mom was getting wrong dose of me d Said she had been giving her mom a full tablet bid, did not realize it unti l today. Went to fill her pill box and was out, called the pharmacy and was told she was to be taking 12.5. Dipika did not realize she was to be cutting these in half. Mom "seems to be fine". Had done this since her apt in jun. ----- Message ----- From: Quita Copeland Sent: 08/19/2013 10:43 AM To: [facility] Nurse Triage [facility] Who called? Dipika,the daughter [phone] Nature of the call: She has ???'s about her mother's metoprolo. Please do the following for the patient: DENTIAL COUNSELOR documented in this encounter Plan of Treatment Not on filedocumented as of this encounter Visit Diagnoses Not on filedocumented in this encounter
--- OUTSIDE RECORDS SUMMARY | 2018-12-05 14:44 | XMS REPORT | Encounter Summary ---
Author Author [facility] Organization [facility] Address Unknown Phone Unavailable Care Team Providers Care Historical Manuscripts Curator Name Role Phone Dorian Muse MD Unavailable Dagmar Lopes MD PCP Ernesto Sosa MD 100 Melvin Monterroso MD Unavailable Unavailable Dana Birmingham RN Unavailable Unavailable Severiano Daniel DO Unavailable Reason for Visit * Reason Comments Paroxysmal Afib Device Check Encounter Details Care Team Description Date Type Department Marty Trejo MD [address] [id number] Paroxysmal Afib; Device Check 10/10/2013 Office Visit [facility] [address] [address] Social History Date Tobacco Use Types Packs/Day [...] Signs Reading Time Taken Comments Vital Sign 124/82 10/10/2013 9:44 AM CDT Blood Pressure 70 10/10/2013 9:44 AM CDT Pulse - - Temperature - - Respiratory Rate - - Oxygen Saturation - - Inhaled Oxygen Concentration 81.6 kg (180 lb) 10/10/2013 9:44 AM CDT Weight 167.6 cm (5' 6") 10/10/2013 9:44 AM CDT Height 29.05 10/10/2013 9:44 AM CDT Body Mass Index documented in this encounter Progress Notes * SCANNED DOCUMENT - 10/15/2013 1:51 PM CDT * Marty Trejo MD - 10/10/2013 10:03 AM CDT Faiza Nation is a 78 y.o. female. HPI Ms Faiza Nation (pronounced like Ernesto) is a pleasant 78-year-old female seen in the EP Clinic at [facility]. She is a patient of Dr. Gruber, who is a good friend and colleague of Dr. Trejo. Faiza Nation has a history of paroxysmal atrial fibrillation, hypertension, sin us node dysfunction status post implantation of Medtronic dual-chamber pacemaker in 2011, hypothyroidism, hyperlipidemia, hiatal hernia, and dementia. She was referred to us for paroxysmal atrial fibrillation with frequent pauses, which were symptomatic, for which she underwent implantation of the pacemaker. For her atrial fibrillation she was initiated on sotalol, and since then she has maintained normal sinus rhythm. At her last visit she was complaining of some tachypalpitations that she had been having. She was initiated on metoprolol 12. 5 mg b.i.d. She is also on digoxin 125 mcg every other day. Review of her device interrogation today showed that she had AFIB episodes of on ly 4 percent of the time in the last three months, and within the last three wee ks she only had two episodes. One episode lasted for one hour, and another epis ode lasted only for 30 seconds. All these episodes have spontaneously terminate d. Her ventricular rates when she is in atrial fibrillation actually have not b een high. They have been normal to low, and thus she is V pacing during some of these episodes. Today Ms Nation reports that she has fewer episodes of palpit ations since her last visit. She is V pacing about 90 percent of the time. Her echocardiogram showed an EF of 70 percent last year at an outside hospital. Ms Nation, otherwise, denies any chest pain, shortness of breath, lightheadedne ss, or syncope. She has episodes of vertigo that occur while lying down. 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 (DOC:[id number]) Filed Vitals: 10/10/13 0944 BP: 124/82 Pulse: 70 Height: 1.676 m (5' 6") Weight: 81.647 kg (180 lb) Body mass index is 29.07 kg/(m^2). Past Medical History Patient Active Problem [...] Near syncope 09/16/2011 09/14/11 hospital admission to [facility] in [place], [place]. Reveal device 952 9 implanted by Allyn Petit MD. Cardiac device in situ, other 08/18/2011 09/16/11 Reveal device 9529, Medtronic. Review of Systems Constitution: Positive for malaise/fatigue. Eyes: Positive for visual halos. Cardiovascular: Positive for dyspnea on exertion and irregular heartbeat. Musculoskeletal: Positive for arthritis, back pain, joint pain, joint swelling, muscle weakness, neck pain and stiffness. Gastrointestinal: Positive for abdominal pain, flatus, heartburn and hemorrhoids . Genitourinary: Positive for bladder incontinence. Neurological: Positive for light-headedness. Psychiatric/Behavioral: The patient has insomnia. All other systems reviewed and are negative. Physical Exam General Appearance: no acute distress Skin: warm, moist, no ulcers HEENT: unremarkable Neck Veins: neck veins are flat, neck veins are not distended Carotid Arteries: normal carotid upstroke bilaterally, no bruits Chest Inspection: chest is normal in appearance Auscultation/Percussion: lungs clear to auscultation, no rales, rhonchi, or whee zing Cardiac Rhythm: regular rhythm and normal rate Cardiac Auscultation: Normal S1 & S2, no S3 or S4, no rub Murmurs: no cardiac murmurs Extremities: no lower extremity edema; 2+ symmetric distal pulses Abdominal Exam: soft, non-tender, no masses, bowel sounds normal Neurologic Exam: neurological assessment grossly intact Cardiac device - over left chest, well seated. Cardiovascular Studies EKG shows A paced V sensed with OR 272ms, QRS 86ms, QTc 436 ms with T wave inver sions in the infero-lateral leads that are unchanged from previous. Assessment and Plan Ms Nation is a 78-year-old female with a history of paroxysmal atrial fibrillat ion, sinus node dysfunction, dementia, hiatal hernia, and nonobstructive CAD. Assessment and Plan: 1. Paroxysmal atrial fibrillation. We will continue her sotalol at this time. She has a few episodes of short-lasting episodes of AFib. We will continue anti coagulation with Pradaxa at this time. Her CHADS score is 2 for her age and for hypertension. 2. cardiac device in situ- implanted for sinus node dysfunction. She is A pace/ V pace 88 percent of the time. We also noted that she has antitachycardia pacin g set for atrial tachycardia. She did have some episodes of atrial tachycardia that terminated spontaneously and were not long enough to be paced out. She als o had episodes of AFib that the device tried to pace her out; however, it was un successful because she was in atrial fibrillation. She is AAIR- DDDR with MVP and she is V -pacing 90% of the time- likely from addie pped V beats with Wenckebach. She has an underlying prolonged AV chavez conductio n. We will at next visit try to increase her paced AV delay settings when she switc hes to DDDR in MVP mode. 3. Light-headed spells. At her last visit, her symptoms raised concern for TIA and hence, a CT scan of the head was ordered which was performed in [place]. This was apparently normal. We do not have the records of this although. Also, her digoxin level was 1.2 and thus, the digoxin was changed to [id number]. Today she describes her light-headed spells more like a vertigo sensation. She is taking meclizine p.r.n. for that. 4. Hypertension, well-controlled blood pressures. We will continue her current medications at this time. 5. Anticoagulation. Continue Pradaxa. 6. We will see her back in six months. (DOC:[id number]) I have personally seen and examined the pt. and performed the carrera portions of th e E/M visit or consultation. The plan was formulated and discussed with the ilya leach. I concur with fellow's documentation of the history, physical exam, assessm ent, and treatment plan, with comments and amends to the note made as needed. Current Medications (including today's revisions) alprazolam (XANAX) [...] Tab Take 1 Tab by mouth daily. COLESTIPOL HCL (COLESTIPOL PO) Take by mouth. Pt has last dose tomorrow- dabigatran (PRADAXA) 150 mg capsule Take 150 [...] Use 200 mg as directed as Needed. Premont-3 Acid Ethyl Esters (LOVAZA) 1 gram cap [...] hours as needed. documented in this encounter Miscellaneous Notes * Outside Records - SCANNED DOCUMENT - 10/22/2013 2:40 PM CDT * Admin - SCANNED DOCUMENT - 10/18/2013 2:15 PM CDT documented in this encounter Plan of Treatment Order Schedule Name Type Priority Associated Diagnoses Ordered: 10/10/2013 ECG 12-LEAD ECG Routine Paroxysmal atrial fibrillation documented as of this encounter Results * DEVICE EVALUATION - PPM (01/06/2014 9:58 AM CDT) Generator OTHER OUTSIDE [facility] Other Generator Model REVO MRI RVDR01 OTHER OUTSIDE # LAB Generator [id number] OTHER OUTSIDE Serial # LAB Generator 10/18/2011 [...] Research OTHER OUTSIDE Comments 2 LAB FÉLIX/EOL SERVICE ARCHITECT=2.81V OTHER OUTSIDE Indicator LAB Generator Medtronic OTHER OUTSIDE [facility] Generator No OTHER OUTSIDE Investigational LAB Wireless No OTHER OUTSIDE Generator LAB Device Type DDD-PM OTHER OUTSIDE LAB Other Implant OTHER OUTSIDE Info LAB Atrial Lead OTHER OUTSIDE [facility] Other Atrial Lead CAPSUREFIX MRI SURESCAN OTHER OUTSIDE Model # 5086-52cm LAB Atrial Lead [id number] OTHER OUTSIDE Serial # LAB Atrial Lead 10/18/2011 OTHER OUTSIDE Implant Date LAB Atrial Lead OTHER OUTSIDE Location Other LAB Atrial Lead OTHER OUTSIDE Polarity Other LAB Atrial Lead 10 OTHER OUTSIDE Diaph. LAB Stimulation Atrial Lead Medtronic OTHER OUTSIDE [facility] Atrial Lead No OTHER OUTSIDE Investigational LAB Atrial Lead active fixation OTHER OUTSIDE Fixation LAB Atrial Lead right atrial appendage OTHER OUTSIDE Location LAB Atrial Lead Pin IS1 OTHER OUTSIDE Connector LAB Atrial Lead Bipolar OTHER OUTSIDE Polarity LAB RV Lead OTHER OUTSIDE [facility] Other RV Lead Model # CAPSUREFIX MRI SURESCAN OTHER OUTSIDE 5086-58cm LAB RV Lead Serial [id number] OTHER OUTSIDE # LAB RV Lead Implant 10/18/2011 OTHER OUTSIDE Date LAB RV Lead OTHER OUTSIDE Location Other LAB RV Lead Diaph. 10 OTHER OUTSIDE Stimulation LAB RV Lead Medtronic OTHER OUTSIDE [facility] RV Lead No OTHER OUTSIDE Investigational LAB RV Lead active fixation OTHER OUTSIDE Fixation LAB RV Lead RV low septum OTHER OUTSIDE Location LAB RV Lead Pin IS1 OTHER OUTSIDE Connector ICD LAB RV Lead Coil OTHER OUTSIDE LAB LV Lead OTHER OUTSIDE [facility] Other LV Lead Model # OTHER OUTSIDE LAB LV Lead Serial OTHER OUTSIDE # LAB LV Lead Implant OTHER OUTSIDE Date LAB LV Lead OTHER OUTSIDE Location Other LAB LV Lead OTHER OUTSIDE Polarity Other LAB LV Lead OTHER OUTSIDE Configuration LAB Other LV Lead OTHER OUTSIDE [facility] LV Lead OTHER OUTSIDE Investigational LAB [...] remote LAB transmission AT/AF Daily OTHER OUTSIDE [place] Hours LAB Average Vent OTHER OUTSIDE Rate during LAB AT/AF #BPM Average Vent OTHER OUTSIDE Rate During LAB AT/AF #Hours Remote No OTHER OUTSIDE Monitoring? LAB Daily [place] OTHER OUTSIDE Threshld Alert? LAB Average OTHER [...] Rhythm LAB -VS% <0.1 OTHER OUTSIDE LAB -BLENDING SUPERVISOR% 5.1 OTHER OUTSIDE LAB -VS% 9.1 OTHER OUTSIDE LAB AP-BLENDING SUPERVISOR% 85.7 OTHER OUTSIDE LAB Initial Rhythm AP-BLENDING SUPERVISOR OTHER OUTSIDE LAB Device Function Yes OTHER [...]
--- OUTSIDE RECORDS SUMMARY | 2018-12-05 14:45 | XMS REPORT | Encounter Summary ---
Author Author [facility] Organization [facility] Address Unknown Phone Unavailable Care Team Providers Care Maintenance Mechanic Elevators Name Role Phone Dorian Muse MD Unavailable Dagmar Lopes MD PCP Ernesto Sosa MD 100 Melvin Monterroso MD Unavailable Unavailable Dana Birmingham RN Unavailable Unavailable Severiano Daniel DO Unavailable Encounter Details Care Team Description Date Type Department Marty Trejo MD [address] [phone] 07/08/2013 Hospital [facility] [address] [id number] Social History Date Tobacco Use Types Packs/Day [...] tablet by mouth twice daily as needed. donepezil (ARICEPT) 10 mg Take 10 mg [...] by 90 Tab 1 tablet mouth daily. 11/25/2011 10/10/2013 aspirin 325 mg tablet [...] by 0 mg tablet mouth as Needed. 05/18/2017 [place]STATIN (BULK) MISC Use 200 mg as 0 directed as Needed. 04/11/2012 05/04/2018 [place]-3 Acid Ethyl Esters Take 1 Cap by [...] Associated Diagnosis DEVICE EVALUATION - PPM Routine 07/08/2013 Cardiac device in situ, 10:19 AM MANAGER FINANCIAL SYSTEMS other documented in this encounter Results * DEVICE EVALUATION - PPM (07/08/2013 10:19 AM MANAGER FINANCIAL SYSTEMS) Generator OTHER OUTSIDE [facility] Other Generator Model REVO MRI RVDR01 OTHER OUTSIDE # LAB Generator [id number] OTHER OUTSIDE Serial # LAB Generator 10/18/2011 [...] Research OTHER OUTSIDE Comments 2 LAB FÉLIX/EOL FLAVORER=2.81V OTHER OUTSIDE Indicator LAB Generator Medtronic OTHER OUTSIDE [facility] Generator No OTHER OUTSIDE Investigational LAB Wireless No OTHER OUTSIDE Generator LAB Device Type DDD-PM OTHER OUTSIDE LAB Other Implant OTHER OUTSIDE Info LAB Atrial Lead OTHER OUTSIDE [facility] Other Atrial Lead CAPSUREFIX MRI SURESCAN OTHER OUTSIDE Model # 5086-52cm LAB Atrial Lead [id number] OTHER OUTSIDE Serial # LAB Atrial Lead 10/18/2011 OTHER OUTSIDE Implant Date LAB Atrial Lead OTHER OUTSIDE Location Other LAB Atrial Lead OTHER OUTSIDE Polarity Other LAB Atrial Lead 10 OTHER OUTSIDE [facility]. LAB Stimulation Atrial Lead Medtronic OTHER OUTSIDE [facility] Atrial Lead No OTHER OUTSIDE Investigational LAB Atrial Lead active fixation OTHER OUTSIDE Fixation LAB Atrial Lead right atrial appendage OTHER OUTSIDE Location LAB Atrial Lead Pin IS1 OTHER OUTSIDE Connector LAB Atrial Lead Bipolar OTHER OUTSIDE Polarity LAB RV Lead OTHER OUTSIDE [facility] Other RV Lead Model # CAPSUREFIX MRI SURESCAN OTHER OUTSIDE 5086-58cm LAB RV Lead Serial [id number] OTHER OUTSIDE # LAB RV Lead Implant 10/18/2011 OTHER OUTSIDE Date LAB RV Lead OTHER OUTSIDE Location Other LAB RV Lead Diaph. 10 OTHER OUTSIDE Stimulation LAB RV Lead Medtronic OTHER OUTSIDE [facility] RV Lead No OTHER OUTSIDE Investigational LAB RV Lead active fixation OTHER OUTSIDE Fixation LAB RV Lead RV low septum OTHER OUTSIDE Location LAB RV Lead Pin IS1 OTHER OUTSIDE Connector ICD LAB RV Lead Coil OTHER OUTSIDE LAB LV Lead OTHER OUTSIDE [facility] Other LV Lead Model # OTHER OUTSIDE LAB LV Lead Serial OTHER OUTSIDE # LAB LV Lead Implant OTHER OUTSIDE Date LAB LV Lead OTHER OUTSIDE Location Other LAB LV Lead OTHER OUTSIDE Polarity Other LAB LV Lead OTHER OUTSIDE Configuration LAB Other LV Lead OTHER OUTSIDE [facility] LV Lead OTHER OUTSIDE Investigational LAB [...] Rate OTHER OUTSIDE Tx LAB Mode Switch 150 OTHER OUTSIDE (bpm) LAB High A Rate 150 OTHER OUTSIDE Detect LAB High V Rate 150 OTHER OUTSIDE Detect LAB Mode Switch On OTHER OUTSIDE Status LAB Device Ernesto Sosa M.D. OTHER OUTSIDE Implanted By LAB Phone Check OTHER OUTSIDE Next Due LAB Pacemaker No OTHER OUTSIDE Dependant LAB Date of Last 07/08/2013 OTHER OUTSIDE Programming LAB Next OTHER OUTSIDE Programming LAB Check Due Date of Last 07/08/2013 OTHER OUTSIDE Interrogation LAB Date of Last OTHER OUTSIDE ICM Evaluation LAB Next ICM Check OTHER OUTSIDE Due LAB HF Patient No OTHER OUTSIDE LAB Date of Last OTHER OUTSIDE Remote Check LAB Next Remote OTHER OUTSIDE Check Due LAB Enrollment Date OTHER OUTSIDE LAB Date of OTHER OUTSIDE baseline remote LAB transmission AT/AF Daily OTHER OUTSIDE [place] Hours LAB Average Vent OTHER OUTSIDE Rate during LAB AT/AF #BPM Average Vent OTHER OUTSIDE Rate During LAB AT/AF #Hours Remote No OTHER OUTSIDE Monitoring? LAB Daily [place] OTHER OUTSIDE Threshld Alert? LAB Average OTHER OUTSIDE Venticular Rate LAB AT/AF On/Off VF OTHER OUTSIDE Detection/Thera LAB py Off # Mode S. OTHER OUTSIDE Events LAB # High AT/AF 18 treated, 33 other AT/AF OTHER OUTSIDE Evts LAB # High V Events 0 OTHER OUTSIDE LAB Time in AT/AF 0.6 hrs/day - 2.5% OTHER OUTSIDE LAB V Rate in AT/AF OTHER OUTSIDE LAB Single PVSc 0.8 per hour (up from 0.3) OTHER OUTSIDE LAB PVC runs 0.1 per hour (up from <0.1) OTHER OUTSIDE LAB Battery Voltage 3.00V OTHER OUTSIDE LAB Estimated -- OTHER OUTSIDE Longevity LAB Magent Rate 85 bpm OTHER OUTSIDE LAB A Sense mv 3.7 OTHER OUTSIDE LAB A Lead ohms 392 OTHER OUTSIDE LAB A Capture V 1.0 OTHER OUTSIDE LAB A Capture ms 0.4 OTHER OUTSIDE LAB Ao Voltage 2.0 OTHER OUTSIDE LAB AO Pulse Width 0.4 OTHER OUTSIDE LAB RV Sense mv 20.3 OTHER OUTSIDE LAB RV Lead ohms 616 OTHER OUTSIDE LAB RV Capture V 2.0 [...] Comments Initial Rhythm OTHER OUTSIDE LAB Underlying Sinus Moisés 55 bpm OTHER OUTSIDE Rhythm LAB -VS% 0.7% OTHER OUTSIDE LAB -IMPLEMENT MECHANIC% 2.5% OTHER OUTSIDE LAB -VS% 81.4% OTHER OUTSIDE LAB AP-IMPLEMENT MECHANIC% 15.3% OTHER OUTSIDE LAB Initial Rhythm AP-VS OTHER [...] OTHER OUTSIDE LAB Specimen Narrative Performed At 07/08/2013 - Full dual chamber PPM check completed in clinic, normal OTHER OUTSIDE LAB device function noted. Pt had 18 treated episodes with ATP x1 up to 28 - longest episode was 3 hours. Pt also had 33 other AT/AF episodes as well. No VHR episodes recorded. Overall burden is down from the last time pt was checked in our office, down from 16.2% to 2.5% today. Reviewed with Dr. Trejo in clinic. Changes made: Increased LRL from 60 bpm to 70 bpm -- AT/AF Rx 1 Initial S1 Pulses from 6 to 15. DALY Procedure Note Marty Trejo MD - 07/09/2013 6:28 PM MANAGER FINANCIAL SYSTEMS 07/08/2013 - Full dual chamber PPM check completed in clinic, normal device function noted. Pt had 18 treated episodes with ATP x1 up to 28 - longest episode was 3 hours. Pt also had 33 other AT/AF episodes as well. No VHR episodes recorded. Overall burden is down from the last time pt was checked in our office, down from 16.2% to 2.5% today. Reviewed with Dr. Trejo in clinic. Changes made: Increased LRL from 60 bpm to 70 bpm -- AT/AF Rx 1 Initial S1 Pulses from 6 to 15. DALY Performing Organization Address City/State/Zipcode Phone Number OTHER OUTSIDE LAB documented in this encounter Visit Diagnoses Diagnosis Cardiac device in situ, other Other specified cardiac device in situ documented in this encounter
--- OUTSIDE RECORDS SUMMARY | 2018-12-05 14:45 | XMS REPORT | Encounter Summary ---
Author Author [facility] Organization [facility] Address Unknown Phone Unavailable Care Team Providers Care Chute Worker Name Role Phone Dorian Muse MD Unavailable Dagmar Lopes MD PCP Ernesto Sosa MD 100 Melvin Monterroso MD Unavailable Unavailable Dana Birmingham RN Unavailable Unavailable Severiano Daniel DO Unavailable Encounter Details Care Team Description Date Type Department Osiel Uribe MA Cardiac device in situ, other (Primary Dx) 07/03/2013 Orders Only The [facility] 4000 [facility] [place] [address] Social History Date Tobacco Use Types Packs/Day [...] DEVICE EVALUATION - PPM (07/08/2013 10:19 AM RIVER GUIDE) Generator OTHER OUTSIDE [facility] [employer] [facility] LAB Other Generator Model REVO MRI RVDR01 OTHER OUTSIDE # LAB Generator [id number] OTHER OUTSIDE Serial # LAB Generator 10/18/2011 [...] Research OTHER OUTSIDE Comments 2 LAB FÉLIX/EOL DRIER TENDER NAPHTHALENE=2.81V OTHER OUTSIDE Indicator LAB Generator Medtronic OTHER OUTSIDE [facility] [employer] [facility] LAB Generator No OTHER OUTSIDE Investigational LAB Wireless No OTHER OUTSIDE Generator LAB Device Type DDD-PM OTHER OUTSIDE LAB Other Implant OTHER OUTSIDE Info LAB Atrial Lead OTHER OUTSIDE [facility] [employer] [facility] LAB Other Atrial Lead CAPSUREFIX MRI SURESCAN OTHER OUTSIDE Model # 5086-52cm LAB Atrial Lead [id number] OTHER OUTSIDE Serial # LAB Atrial Lead 10/18/2011 OTHER OUTSIDE Implant Date LAB Atrial Lead OTHER OUTSIDE Location Other LAB Atrial Lead OTHER OUTSIDE Polarity Other LAB Atrial Lead 10 OTHER OUTSIDE [facility]. LAB Stimulation Atrial Lead Medtronic OTHER OUTSIDE [facility] [employer] [facility] LAB Atrial Lead No OTHER OUTSIDE Investigational LAB Atrial Lead active fixation OTHER OUTSIDE Fixation LAB Atrial Lead right atrial appendage OTHER OUTSIDE Location LAB Atrial Lead Pin IS1 OTHER OUTSIDE Connector LAB Atrial Lead Bipolar OTHER OUTSIDE Polarity LAB RV Lead OTHER OUTSIDE [facility] LAB Other RV Lead Model # CAPSUREFIX MRI SURESCAN OTHER OUTSIDE 5086-58cm LAB RV Lead Serial [id number] OTHER OUTSIDE # LAB RV Lead Implant 10/18/2011 OTHER OUTSIDE Date LAB RV Lead OTHER OUTSIDE Location Other LAB RV Lead Diaph. 10 OTHER OUTSIDE Stimulation LAB RV Lead Medtronic OTHER OUTSIDE [facility] Specialist LAB RV Lead No OTHER OUTSIDE Investigational LAB RV Lead active fixation OTHER OUTSIDE Fixation LAB RV Lead RV low septum OTHER OUTSIDE Location LAB RV Lead Pin IS1 OTHER OUTSIDE Connector ICD LAB RV Lead Coil OTHER OUTSIDE LAB LV Lead OTHER OUTSIDE [facility] [employer] Specialist LAB Other LV Lead Model # OTHER OUTSIDE LAB LV Lead Serial OTHER OUTSIDE # LAB LV Lead Implant OTHER OUTSIDE Date LAB LV Lead OTHER OUTSIDE Location Other LAB LV Lead OTHER OUTSIDE Polarity Other LAB LV Lead OTHER OUTSIDE Configuration LAB Other LV Lead OTHER OUTSIDE [facility] Directory Specialist LAB LV Lead OTHER OUTSIDE Investigational [...] remote LAB transmission AT/AF Daily OTHER OUTSIDE [place] Hours LAB Average Vent OTHER OUTSIDE Rate during LAB AT/AF #BPM Average Vent OTHER OUTSIDE Rate During LAB AT/AF #Hours Remote No OTHER OUTSIDE Monitoring? LAB Daily [place] OTHER OUTSIDE Threshld Alert? LAB Average OTHER [...] Rhythm LAB -VS% 0.7% OTHER OUTSIDE LAB -MARKETING AUTOMATION MANAGER% 2.5% OTHER OUTSIDE LAB -VS% 81.4% OTHER OUTSIDE LAB AP-MARKETING AUTOMATION MANAGER% 15.3% OTHER OUTSIDE LAB Initial Rhythm AP-VS [...] Marty Trejo MD - 07/09/2013 6:28 PM RIVER GUIDE 07/08/2013 - Full dual chamber PPM check [...] Diagnoses Diagnosis Cardiac device in situ, other - Primary Other specified cardiac device in situ documented in this encounter
--- OUTSIDE RECORDS SUMMARY | 2018-12-05 14:45 | XMS REPORT | Encounter Summary ---
Author Author [facility] Organization [facility] Address Unknown Phone Unavailable Care Team Providers Care Printed Circuit Boards Inspector Name Role Phone Dorian Muse MD Unavailable Dagmar Lopes MD PCP Ernesto Sosa MD 100 Melvin Monterroso MD Unavailable Unavailable Dana Birmingham RN Unavailable Unavailable Severiano Daniel DO Unavailable Reason for Visit * Reason Comments Atrial fibrillation Encounter Details Care Team Description Date Type Department Marty Trejo MD [address] [phone] Atrial fibrillation 07/08/2013 Office Visit [facility] [address] [id number] Social History Date Tobacco Use Types Packs/Day [...] Signs Reading Time Taken Comments Vital Sign 124/78 07/08/2013 9:01 AM FOOD SERVICE ASSISTANT Blood Pressure 63 07/08/2013 9:01 AM FOOD SERVICE ASSISTANT Pulse - - Temperature - - Respiratory Rate - - Oxygen Saturation - - Inhaled Oxygen Concentration 83.5 kg (184 lb) 07/08/2013 9:01 AM FOOD SERVICE ASSISTANT Weight 167.6 cm (5' 6") 07/08/2013 9:01 AM FOOD SERVICE ASSISTANT Height 29.7 07/08/2013 9:01 AM FOOD SERVICE ASSISTANT Body Mass Index documented in this encounter Patient Instructions * Patient Instructions* Osiel Uribe - 07/08/2013 10:10 AM FOOD SERVICE ASSISTANT Call Dr. Gruber for a Head CT to rule out stroke. We are going to start you on El iquis, if this is too expensive call Dr. Gruber to start warfarin. We are also go ing to start you on Metoprolol. If you feel lightheaded after starting metoprolol, decrease your furosemide to . 5 tab and call us and Dr. Lopes. SERVICE ASSISTANT documented in this encounter Progress Notes * Marty Trejo MD - 07/08/2013 9:16 AM FOOD SERVICE ASSISTANT Faiza Nation is a 78 y.o. female. HPI I had the pleasure of seeing your patient Faiza Nation (like "mitchell") for init ial Electrophysiolgy Consultation in the [facility] as a part of the [facility] office today regarding her tachypalpita tions and AFIB in more detail he scheduled her to see me with the intent for her to follow-up with me in [place]. She is typically followed and was referred by my good friend and colleague Dr. Akanksha day, her primary activity therapy teacher. Ms. Nation is an exceptionally pleasant 78 y.o. female, who is accompanied by h er equally pleasant daughter Dipika. 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 She apparently has had a GI bleed in the past on Warfarin. She underwent a stress test, echocardiogram and a cardiac catheterization at an outside Hospital. Stress test showed no ischemia with an EF of 65 percent. Echoc ardiogram showed an EF of 70 percent with LA size of 4.3 cm and myxomatous yumi l valve degeneration. Her septal and posterior wall thickness was 1 cm. Cardiac cath was done in 12/2012, which showed mid LAD 30 percent lesion and RCA of 40 percent to 50 percent with diffuse plaques. For Sxs of recurrent LHedness and palpitations she underwent Reveal ILR implant by Dr. Gruber ~2010. The ILR documented AIFB and some Bradycardia/pauses. She w as therefore referred and evaluated by Dr. Sosa. He saw her 09/2011, at that time Ms. Nation was having PAFIB with frequent pause s which were symptomatic without even initiating any medicine for atrial fibrill ation. Therefore, it was recommended and she underwent Medtronic MRI compatible DDDR PPM implantation 10/2011. She was then initiated on Sotalol and had been m aintaining Sinus Rhythm. Her ILR was explanted/ removed at that time. She apparently had been on Xarelto briefly but had significant LHedness and it w as attributed to that and therefore it was discontinued. Therefore, she is on A SA alone [address] Sosa last saw her 11/2011, at that time she had been apparently doing well a nd he scheduled a follow up with Dr. Gruber. 04/30/13 she was admitted to [facility] for hiatal hernia repair after 2 failed atte mpts. Unfortunately, they found that her adhesions were "too dense to allow for safe repair of her hietal hernia and her procedure was aborted." She saw Dr. Gruber on 06/20/13. At that time she had still be having some intermit tent Tachypalpitations. She felt those Sxs were related to her Atenolol. Unfort unately we do not have Dr. Gruber's recent records. The Atenolol was dc'ed. She states that her tachypalpitations were improved but not resolved. She apparently has had issues with low blood sugar and has checked it regularly with any recurrent Sxs and states it has been in the normal range. Device check from Dr. Gruber's Office from 06/20/13 document 64 AT/AF events. For her recurrent Sxs of intermittent Tachypalpitations that apparently "make he r very anxious and nervous," she was referred for EP consultation. IN PRESENTATION TODAY, she STATES that she still expereinces tachypalpitations. The episodes are improved since stopping Atenolol. She also states she had an episode of LHedness before she went to bed last week. She describes the episode as beginning with a tingling sensation at the top of her head and progressing to a point of near syncope. She states that she no LH edness in the last 6 month, or any other recurrances since last week, however hugh timmons also noted an episode where she saw "pascual" shapes in her Left visual field. She does note some occasional postural Sxs of LHedness. She states that her tachypalpitations occur multiple times a week, and last at l east 5 minutes. She denies any other associated Sxs. She denies any balance issues outside of her arthitis and walking with a cohen. She has not had any falls for at least two years. Of note, her primary complaint today is that she is unable to exercise due to ar thritis. She states that her BP usually runs in the 124/78 mmHg range. She denies any chest discomfort, shortness of breath, syncope, PND or orthopnea. Filed Vitals: 07/08/13 0901 BP: 124/78 Pulse: 63 Height: 1.676 m (5' 6") Weight: 83.462 kg (184 lb) Body mass index is 29.70 kg/(m^2). Past Medical History Patient Active Problem [...] Near syncope 09/16/2011 09/14/11 hospital admission to [facility] in [place], [place]. Reveal device [id number] implanted by Allyn Petit MD. Cardiac device in situ, other 08/18/2011 09/16/11 Reveal device 9529, Medtronic. Review of Systems Constitution: Positive for decreased appetite and malaise/fatigue. HENT: Positive for tinnitus. Eyes: Positive for blurred vision, pain and photophobia. Cardiovascular: Positive for dyspnea on exertion, irregular heartbeat and near-s yncope. Respiratory: Positive for shortness of breath. Hematologic/Lymphatic: Bruises/bleeds easily. Skin: Positive for dry skin and itching. Musculoskeletal: Positive for arthritis, back pain, joint pain, joint swelling, myalgias and stiffness. Gastrointestinal: Positive for bloating, abdominal pain, anorexia, diarrhea, fla tus and heartburn. Genitourinary: Positive for bladder incontinence. Neurological: Positive for dizziness. Psychiatric/Behavioral: Positive for memory loss. All other systems reviewed and are negative. Physical Exam She is in no acute distress, resting comfortably. Chest: Clear to auscultation bilaterally. Cardiovascular: No evidence of increased jugular venous pressure, carotids are 2+/4+ equal bilaterally, without obvious bruit. Regular rhythm, S1, S2. 2/6 sy stolic murmur noted at the RUSB-->LLSB. No heaves, thrills or rubs. Extremities: without significant peripheral edema. Device: is in her left infraclavicular region and well-healed. Cardiovascular Studies ECG today demonstrates A-paced Rhythm at 63 bpm with Nonspecific Repolarization Abnormality with ST depression with TW inversion. UT 256 ms, QRSd 94 ms, QTc 422 ms. Full device check performed with reprogramming which I have extensively reviewed . Changes, if done, as discussed below and is detailed in other dictation/note. 97% A-paced, 18% V-paced. 33 AT/AF events since 06/20/13 longest 3 hours in durat ion for an AF burden of 2.5%. No high V-rate events. Review of her cardiac com pass demonstrated in February and March her AF burden was increased but her b urden has decreased since then with much less frequent and shorter episodes. H er V-rate during AFIB is 97% of the time less than 80 bpm. Review of EGM's con firms episodes of ATACH/AFIB with unsuccessful Atrial ATP. Unfortunately we do not have the last device check from Dr. Gruber's office on 06/20/12. Assessment and Plan --Persistent AFIB: We had a lengthy discussion regarding atrial fibrillation, the pathophysiology of Atrial Fibrillation, the mechanism, and therapeutic optio ns. We discussed what I call the 3 R's: The Rhythm being abnormal; the Rate being R apid; and the Risk of stroke. At this time the episodes are relative frequent but brief, however I do have con cerns regarding her stroke risk. We will initiate Eliquis and decrease her ASA to 81 mg daily. However, if it is cost prohibitive she will initiate Warfarin. If she is on Warfarin Dr. Gruber will assume management. Although the device tells us that it is infrequent that she has V-rates in AF gr eater than 80 bpm, given her Sxs we will add low dose Metoprolol 12.5 mg BID. O f course if she is intolerant then she will stop it. If she has LHedness with the Metoprolol then I have recommended decreasing her F urosamide from 40 mg to 20 mg. If she continues to have sig AFIB then we may DC Sotalol in favor of Amiodarone in the future. --LHed Spell/Head Ache/Visiaul CHanges: Some of her Sxs raise concern for possi ble TIA, therefore I have recommended that she undergo head CT back in [facility]. We will also check a Digoxin level to ensure that she does have have evidenc e of Digoxin Toxicity. We will pursue blood work to assess Kidney function to i nclude a CMP. We will also check a CBC and TSH (in the event of amiodarone init iation in the future). --Medtronic DDDR PPM: device is functioning well. Wee have increased her LRL to 70 and the number of her ATP beats to 15. --HTN: Under good control. If she develops Sxs of LHedness she will decrease h er Furosamide as well. --Hypothydroidism: TSH pending. --Anticoagulation: As above. Will initiate Eliquis. She will decrease her ASA to 81 mg daily. --Dementia: Head CT, etc. pending. Ms. Nation was educated regarding plan of [...] have scheduled her follow-up with me in 3 month(s) . Current Medications (including today's revisions) furosemide (LASIX) 40 mg tablet Take 40 mg by mouth daily. NYSTATIN (BULK) MISC Use 200 mg as directed as Needed. meclizine (ANTIVERT) 25 mg tablet Take 25 mg by mouth as Needed. amLODIPine (NORVASC) 5 mg tablet Take 5 mg by mouth daily. digoxin (LANOXIN) 125 mcg tablet Take 0.125 mg by mouth daily. omeprazole DR(+) (PRILOSEC) 40 mg capsule Take 40 mg by mouth daily. potassium chloride SR (K-DUR) 20 mEq tablet Take 40 mEq by mouth daily. sucralfate (CARAFATE) 1 gram tablet Take 1 g by mouth every 6 hours as neede d. Calcium Carbonate-Vitamin D3 (VITAMIN D-3) 180-5,000 mg-unit Tab Take 1 Tab by mouth daily. levothyroxine (SYNTHROID) 125 mcg tablet Take 125 mcg by mouth daily. sertraline (ZOLOFT) 50 mg tablet Take 50 mg by mouth daily. sotalol AF (BETAPACE AF) 120 mg Take 1 Tab by mouth twice daily. [place]-3 Acid Ethyl Esters (LOVAZA) 1 gram cap Take 1 Cap by mouth four times daily. aspirin 325 mg tablet Take 1 Tab by mouth daily. traMADol (ULTRAM) 50 mg tablet Take 50 mg by mouth every 6 hours as needed. busPIRone (BUSPAR) 10 mg tablet Take 15 mg by mouth twice daily. meloxicam(+) (MOBIC) 15 mg tablet Take 15 mg by mouth daily. donepezil (ARICEPT) 10 mg tablet Take 10 mg by mouth At Bedtime Daily. alprazolam (XANAX) 0.25 mg tablet Take 0.25 mg by mouth twice daily. losartan (COZAAR) 100 mg tablet Take 100 mg by mouth Daily. DISCONTD: amLODIPine (NORVASC) 5 mg tablet Take 1 Tab by mouth daily. Documentation recorded by Jose Pierce, acting as scribe for Marty Trejo M.D. SERVICE ASSISTANT * Marty Trejo MD - 07/07/2013 11:45 PM FOOD SERVICE ASSISTANT . SERVICE ASSISTANT documented in this encounter Procedure Notes * SCANNED DOCUMENT - 08/15/2013 3:56 PM FOOD SERVICE ASSISTANT SERVICE ASSISTANT documented in this encounter Miscellaneous Notes * Outside Records - SCANNED DOCUMENT - 08/15/2013 2:14 PM FOOD SERVICE ASSISTANT SERVICE ASSISTANT * Outside Records - SCANNED DOCUMENT - 08/15/2013 2:14 PM FOOD SERVICE ASSISTANT SERVICE ASSISTANT * Outside Records - SCANNED DOCUMENT - 08/15/2013 2:14 PM FOOD SERVICE ASSISTANT SERVICE ASSISTANT * Outside Records - SCANNED DOCUMENT - 08/15/2013 2:14 PM FOOD SERVICE ASSISTANT SERVICE ASSISTANT * Outside Records - SCANNED DOCUMENT - 08/15/2013 2:14 PM FOOD SERVICE ASSISTANT SERVICE ASSISTANT * Outside Records - SCANNED DOCUMENT - 08/15/2013 2:14 PM FOOD SERVICE ASSISTANT SERVICE ASSISTANT * Outside Records - SCANNED DOCUMENT - 08/15/2013 2:14 PM FOOD SERVICE ASSISTANT SERVICE ASSISTANT * Outside Records - SCANNED DOCUMENT - 08/07/2013 9:40 AM FOOD SERVICE ASSISTANT SERVICE ASSISTANT * Admin - SCANNED DOCUMENT - 07/10/2013 4:41 PM FOOD SERVICE ASSISTANT SERVICE ASSISTANT * Outside Records - SCANNED DOCUMENT - 07/10/2013 3:16 PM FOOD SERVICE ASSISTANT SERVICE ASSISTANT * Outside Records - SCANNED DOCUMENT - 07/10/2013 3:16 PM FOOD SERVICE ASSISTANT SERVICE ASSISTANT * Outside Records - SCANNED DOCUMENT - 07/10/2013 3:16 PM FOOD SERVICE ASSISTANT SERVICE ASSISTANT * Outside Records - SCANNED DOCUMENT - 07/10/2013 3:16 PM FOOD SERVICE ASSISTANT SERVICE ASSISTANT * Outside Records - SCANNED DOCUMENT - 07/10/2013 3:16 PM FOOD SERVICE ASSISTANT SERVICE ASSISTANT * Addendum Note - Tracee Ortega - 07/08/2013 10:44 AM FOOD SERVICE ASSISTANT Addended by: TRACEE ORTEGA on: 07/08/2013 10:44 AM Modules accepted: Orders, Medications SERVICE ASSISTANT documented in this encounter Plan of Treatment Order Schedule Name Type Priority Associated Diagnoses Ordered: 07/08/2013 ECG 12-LEAD ECG Routine Paroxysmal atrial fibrillation documented as of this encounter Results * DEVICE EVALUATION - PPM (10/10/2013 10:25 AM CDT) Generator OTHER OUTSIDE Structural Worker LAB Other Generator Model REVO MRI RVDR01 OTHER OUTSIDE # LAB Generator [id number] OTHER OUTSIDE Serial # LAB Generator 10/18/2011 [...] Research OTHER OUTSIDE Comments 2 LAB FÉLIX/EOL PREVENTIVE MAINTENANCE ENGINEER=2.81V OTHER OUTSIDE Indicator LAB Generator Medtronic OTHER OUTSIDE Structural Worker LAB Generator No OTHER OUTSIDE Investigational LAB Wireless No OTHER OUTSIDE Generator LAB Device Type DDD-PM OTHER OUTSIDE LAB Other Implant OTHER OUTSIDE Info LAB Atrial Lead OTHER OUTSIDE Structural Worker LAB Other Atrial Lead CAPSUREFIX MRI SURESCAN OTHER OUTSIDE Model # 5086-52cm LAB Atrial Lead [id number] OTHER OUTSIDE Serial # LAB Atrial Lead 10/18/2011 OTHER OUTSIDE Implant Date LAB Atrial Lead OTHER OUTSIDE Location Other LAB Atrial Lead OTHER OUTSIDE Polarity Other LAB Atrial Lead 10 OTHER OUTSIDE Diaph. LAB Stimulation Atrial Lead Medtronic OTHER OUTSIDE Structural Worker LAB Atrial Lead No OTHER OUTSIDE Investigational LAB Atrial Lead active fixation OTHER OUTSIDE Fixation LAB Atrial Lead right atrial appendage OTHER OUTSIDE Location LAB Atrial Lead Pin IS1 OTHER OUTSIDE Connector LAB Atrial Lead Bipolar OTHER OUTSIDE Polarity LAB RV Lead OTHER OUTSIDE Structural Worker LAB Other RV Lead Model # CAPSUREFIX MRI SURESCAN OTHER OUTSIDE 5086-58cm LAB RV Lead Serial [id number] OTHER OUTSIDE # LAB RV Lead Implant 10/18/2011 OTHER OUTSIDE Date LAB RV Lead OTHER OUTSIDE Location Other LAB RV Lead Diaph. 10 OTHER OUTSIDE Stimulation LAB RV Lead Medtronic OTHER OUTSIDE Structural Worker LAB RV Lead No OTHER OUTSIDE Investigational LAB RV Lead active fixation OTHER OUTSIDE Fixation LAB RV Lead RV low septum OTHER OUTSIDE Location LAB RV Lead Pin IS1 OTHER OUTSIDE Connector ICD LAB RV Lead Coil OTHER OUTSIDE LAB LV Lead OTHER OUTSIDE Structural Worker LAB Other LV Lead Model # OTHER OUTSIDE LAB LV Lead Serial OTHER OUTSIDE # LAB LV Lead Implant OTHER OUTSIDE Date LAB LV Lead OTHER OUTSIDE Location Other LAB LV Lead OTHER OUTSIDE Polarity Other LAB LV Lead OTHER OUTSIDE Configuration LAB Other LV Lead OTHER OUTSIDE Structural Worker LAB LV Lead OTHER OUTSIDE Investigational LAB [...] remote LAB transmission AT/AF Daily OTHER OUTSIDE Noble Hours LAB Average Vent OTHER OUTSIDE Rate during LAB AT/AF #BPM Average Vent OTHER OUTSIDE Rate During LAB AT/AF #Hours Remote No OTHER OUTSIDE Monitoring? LAB Daily [place] OTHER OUTSIDE Threshld Alert? LAB Average OTHER OUTSIDE Venticular Rate LAB AT/AF On/Off VF OTHER OUTSIDE Detection/Thera LAB py Off Device OTHER OUTSIDE Reprogram LAB Comments Initial Rhythm OTHER OUTSIDE LAB Underlying OTHER OUTSIDE Rhythm LAB -VS% <0.1 OTHER OUTSIDE LAB -MINING MANAGER% 1.6 OTHER OUTSIDE LAB -VS% 10.2 OTHER OUTSIDE LAB AP-MINING MANAGER% 88.1 OTHER OUTSIDE LAB Initial Rhythm OTHER [...] CHECKED ON 09/26 BY MAC OR AT [facility]. 5 events noted 10/09 03:06-03:20. 03:06 lasted approx 4.5 mins, treated with ATP x7. 03:13 for 27 secs. 03:15 for 35 secs. 03:17 for approx 2.5 mins, treated with ATP x3. 03:20 for approx 70 mins, treated with ATP x28. Today, pt is -MINING MANAGER and PP-MINING MANAGER. 09/28 an event was noted at 22:53 for 30 secs. Ventricular:none Will continue to monitor. Procedure Note Marty Trejo MD - 10/10/2013 5:37 PM CDT Dual chamber pacemaker interrogation. Device function appears normal. Events noted: Atrial: 6 AT/AF events noted for 0.4% SINCE 09/26/2013--SHE DID NOT HAVE HER DEVICE CHECKED ON 09/26 BY MAC OR AT [facility]. 5 events noted 10/09 03:06-03:20. 03:06 lasted approx 4.5 mins, treated with ATP x7. 03:13 for 27 secs. 03:15 for 35 secs. 03:17 for approx 2.5 mins, treated with ATP x3. 03:20 for approx 70 mins, treated with ATP x28. Today, pt is -MINING MANAGER and PP-MINING MANAGER. 09/28 an event was noted at 22:53 for 30 secs. Ventricular: none Will continue to monitor. Performing Organization Address City/State/Zipcode Phone Number OTHER OUTSIDE LAB * DIGOXIN LEVEL (07/08/2013 9:52 AM FOOD SERVICE ASSISTANT) Pathologist [facility] Digoxin 1.2 (H) 0.5 - 1.0 NG/ML [facility] Specimen Blood - Blood Performing Organization Address City[facility] Phone Number [facility] [address] [phone] * CBC (07/08/2013 9:52 AM FOOD SERVICE ASSISTANT) Pathologist [facility] White Blood 9.2 4.5 - 11.0 K/UL [facility] Cells RBC 5.44 (H) 4.0 - 5.0 M/UL [facility] Hemoglobin 14.8 12.0 - 15.0 GM/DL [facility] Hematocrit 46.4 (H) 36 - 45 % MAIN LAB MCV 85.2 80 - 100 FL MAIN LAB MCH 27.2 26 - 34 PG [facility] MCHC 31.9 (L) 32.0 - 36.0 G/DL [facility] RDW 17.9 (H) 11 - 15 % [facility] Platelet Count 255 150 - 400 K/UL [facility] MPV 7.9 7 - 11 FL [facility] Specimen Blood - Blood Performing Organization Address City/[facility] Phone Number [facility] [address] [place] [address] * COMPREHENSIVE METABOLIC PANEL (07/08/2013 9:52 AM FOOD SERVICE ASSISTANT) Pathologist [facility] Sodium 140 137 - 147 MMOL/L MAIN LAB Potassium 3.7 3.5 - 5.1 MMOL/L [facility] Chloride 107 98 - 110 MMOL/L [...] >60 ML/MIN/1.73 SQM [facility] MAIN LAB Comment: [place] The eGFR is not validated for use in drug dosing adjustments.Continue to use estimated creatinine clearance per dosing reference text.Please contact the Clinical Pharmacist for questions. eGFR >60 >60 ML/MIN/1.73 SQM [facility]IN [facility] [place] Comment: The eGFR is not validated for use in drug dosing adjustments.Continue to use estimated creatinine clearance per dosing reference text.Please contact the Clinical Pharmacist for questions. Specimen Blood - Blood Performing Organization Address City/State/Zipcode Phone Number [facility] [address] [place] [address] documented in this encounter Visit Diagnoses Diagnosis Paroxysmal atrial fibrillation (HCC) - Primary Atrial fibrillation Cardiac device in situ, other Other specified cardiac device in situ Bradycardia Other specified cardiac dysrhythmias documented in this encounter
--- OUTSIDE RECORDS SUMMARY | 2018-12-05 14:46 | XMS REPORT | Encounter Summary ---
Author Author [facility] Organization [facility] Address Unknown Phone Unavailable Care Team Providers Care Internet Marketing Consultant Name Role Phone Dorian Muse MD Unavailable Dagmar Lopes MD PCP Ernesto Sosa MD 100 Paul Monterroso MD Unavailable Unavailable Dana Birmingham RN Unavailable Unavailable Reason for Visit * Auth/Cert Referred By Contact Referred To Contact Status Reason Specialty Diagnoses / Procedures [facility] [address] [place] [address] Closed Diagnoses hiatal hernia P rocedures ID RPR PARAESOPH HIATAL HERNIA W/LAPT W/O MESH ID LAPT RPR PARAESOPH HIATAL HERNIA W/MESH ID LAP,ESOPHAGOGAST FUNDOPLASTY Encounter Details Care Team Description Date Type Department Paul Monterroso MD [address] [place] [address] 04/30/2013 [facility] 05/01/[address] [place], [place] [id number] Social History Date Tobacco Use Types Packs/Day [...] Signs Reading Time Taken Comments Vital Sign 158/75 05/01/2013 11:23 AM DRAGLINE OILER Blood Pressure 61 05/01/2013 11:23 AM DRAGLINE OILER Pulse 36.5 C (97.7 F) 05/01/2013 11:23 AM DRAGLINE OILER Temperature - - Respiratory Rate 98% 05/01/2013 11:23 AM DRAGLINE OILER Oxygen Saturation - - Inhaled Oxygen Concentration 86.2 kg (190 lb) 04/30/2013 1:17 PM DRAGLINE OILER Weight 167.6 cm (5' 6") 04/30/2013 1:17 PM DRAGLINE OILER Height 30.67 04/30/2013 1:17 PM DRAGLINE OILER Body Mass Index documented in this encounter Discharge Summaries * Severiano Daniel DO - 05/04/2013 8:47 PM DRAGLINE OILER Physician Discharge Summary Name: Faiza Nation Date Of : 1935 Age: 78 years Admit date: 04/30/2013 Discharge date: Attending Physician: Dr Monterroso Service: Surgery-Minimally Invasive /GI Physician Summary completed by: Severiano Daniel DO Reason for hospitalization: Recurrent hiatal hernia after 2 previous repair atte mpts; to attempt hiatal hernia repair. Significant PMH: Past Medical History Diagnosis Date Hypertension Hyperlipidemia Paroxysmal atrial fibrillation Hypothyroidism Dementia Anxiety Palpitations Lower GI bleeding Cardiac device in situ, other Reveal device , [employer]. Near syncope 09-16-2011 hospital admission Chest pain 09-16-2011 Stress test showed no ischemia History of hiatal hernia Allergies: Codeine and Morphine Admission Physical Exam notable for: Vital Signs: Last Filed In 24 Hours Vital Signs: 24 Hour Range BP: 134/62 mmHg (04/30 1317) Temp: 36.3 C (97.3 F) (04/30 1317) Pulse: 65 (04/30 1317) Respirations: 14 PER MINUTE (04/30 1317) SpO2: 98 % (04/30 1317) O2 Delivery: None (Room Air) (04/30 1317) Height: 167.6 cm (66") (04/30 1317) BP: (134)/(62) Temp: [36.3 C (97.3 F)] Pulse: [65] Respirations: [14 PER MINUTE] SpO2: [98 %] O2 Delivery: [-] Intensity Pain Scale 0-10 (Pain 1): 10 (11/12/13 1317) Intake/Output: No intake or output data in the 24 hours ending 04/30/13 1408 Physical Exam: GENERAL: alert and oriented HEART: Regular rate and rhythm, no murmurs ausculated LUNGS: clear bilaterally ABDOMEN: bowel sounds present, non-tender, no masses. Midline scar EXTREMITIES: No LE edema, pulses 2+ bilaterally NEURO: No numbness in all extremities bilaterally Admission Lab/Radiology studies notable for: CT showing hiatal hernia recurrence Brief Hospital Course: The patient was admitted and the following issues were a ddressed during this hospitalization: (with pertinent details). 1. * Recurrent hiatal hernia after 2 previous repair attempts; attempted hiatal hernia repair: The patient presented to [facility] on 04/30/13 to undergo repair of recurrent hiatal hernia. Intraoperatively, after lysis of adhesions around the hernia was attempt ed, it was found that these adhesions were too dense to allow safe repair of the hiatal hernia, and the procedure was aborted. The patient tolerated the procedu re well and there were no complications. She was transferred from the OR to the PACU in stable condition and from there to the med/surg floor. On the floor, she recovered appropriately, her pain was well-controlled with oral pain medication s, she was tolerating a regular diet and was ambulating without issues, and was discharged home on 05/01/13. Condition at Discharge: Stable Discharge Diagnoses: Dense intra-abdominal adhesions Recurrent hiatal hernia, irreducible due to dense adhesions Surgical Procedures: Exploratory laparoscopy, Lysis of adhesions Significant Diagnostic Studies and Procedures: noted in brief hospital course Consults: None Patient Disposition: Home Patient instructions/medications: Lifting Restrictions Do not lift more than 10 pounds, equalto a gallon of milk in weight, for 6 weeks . Return Appointment Please call Dr Monterroso's office: to confirm your follow-up appointm ent on 05/23/2013 at 8:30 AM. Provider PAUL MONTERROSO [[id number]] Location Surgery Clinic Appointment date: 05/23/2013 Appointment time: 8:30 AM Report These Signs and Symptoms Please contact Dr Monterroso's office: or call and ask for the health information director general surgery resident if after hours, if you have any of the following symptoms: temperature higher than 100 degrees F, uncontrolled pain, pe rsistent nausea and/or vomiting, difficulty breathing, chest pain, severe abdomi nal pain, headache, unable to urinate, unable to have bowel movement or drainage with a foul odor Also contact Dr Monterroso if you have a rapid heart beat, cannot swallow, or have re gurgitation. Questions About Your Stay For questions or concerns regarding your hospital stay: DURING BUSINESS HOURS (8:00 AM - 4:30 PM): Call [phone] and asked to be transferred to your discharge attending physic yohannes (below). AFTER BUSINESS HOURS (4:30 PM - 8:00 AM, on weekends, or holidays): Call [phone] and ask the halver machine operator to page the on-call doctor for the discha rge attending physician (below). Discharging attending physician: PAUL MONTERROSO [[id number]] Regular Diet If you have questions about your diet after you go home, you can call a dietitia n at [phone]. Wound Care Keep wound clean and dry. Do not submerge under water. Incision Care *Keep your incision clean and dry. *May shower *Do not submerge incision in tub, pool, hot tub, or hu for 4 weeks. *Avoid applying deodorants, powders, creams, lotions, etc, to your incision for 4 weeks. *Your incision should gradually look better each day. If you notice unusual swe lling, redness, drainage, have increasing pain at the site, or have a fever grea ter than 100 degrees, notify your physician immediately. Opioid (Narcotic) Safety Information OPIOID (NARCOTIC) PAIN MEDICATION SAFETY We care about your comfort, and believe you need opioid medications at this time to treat your pain. An opioid is a strong pain medication. It is only availab le by prescription for moderate to severe pain. Usually these medications are u sed for only a short time to treat pain, but sometimes will be prescribed for lo nger. Talk with your doctor or nurse about how long they expect you to need thi s medication. When used the right way, opioids are safe and effective medications to treat you r pain, even when used for a long time. Yet, when used in the wrong way, opioid s can be dangerous for you or others. Opioids do not work for everyone. Most p atients do not get full relief of their pain from opioid medication; full relief of your pain may not be possible. For your safety, we ask you to follow these instructions: *Only take your opioid medication as prescribed. If your pain is not controlled with the prescribed dose, or the medication is not lasting long enough, call yo doctor. *Do not break or crush your opioid medication unless your doctor or pharmacist s ays you can. With certain medications, this can be dangerous, and may cause yesi th. *Never share your medications with others, even if they appear to have a good re ason. Never take someone else's pain medication-this is dangerous, and illegal (a crime). Overdoses and deaths have occurred. *Keep your opioid medications safe, as you would with small, in a lock box or sim ilar container. *Make sure your opioids are going to be secure, especially if you are around chi ldren or teens. *Talk with your doctor or pharmacist before you take other medications. *Avoid driving, operating machinery, or drinking alcohol while taking opioid kira n medication. This may be unsafe. Current Discharge Medication List START taking these medications Details oxyCODone (ROXICODONE) 5 mg tablet Take 1-2 Tabs by mouth every 4 hours as neede d for Pain Earliest Fill Date: 05/01/13 Qty: 45 Tab, Refills: 0 PRESCRIPTION TYPE: Print CONTINUE these medications which have NOT CHANGED Details digoxin (LANOXIN) 125 mcg tablet Take 0.125 mg by mouth daily. PRESCRIPTION TYPE: Historical Med omeprazole DR(+) (PRILOSEC) 40 mg capsule Take 40 mg by mouth daily. PRESCRIPTION TYPE: Historical Med potassium chloride SR (K-DUR) 20 mEq tablet Take 40 mEq by mouth daily. PRESCRIPTION TYPE: Historical Med sucralfate (CARAFATE) 1 gram tablet Take 1 g by mouth every 6 hours as needed. PRESCRIPTION TYPE: Historical Med Calcium Carbonate-Vitamin D3 (VITAMIN D-3) 180-5,000 mg-unit Tab Take 1 Tab by m outh daily. PRESCRIPTION TYPE: Historical Med levothyroxine (SYNTHROID) 125 mcg tablet Take 125 mcg by mouth daily. PRESCRIPTION TYPE: Historical Med sertraline (ZOLOFT) 50 mg tablet Take 50 mg by mouth daily. PRESCRIPTION TYPE: Historical Med sotalol AF (BETAPACE AF) 120 mg Take 1 Tab by mouth twice daily. Qty: 180 Tab, Refills: 0 PRESCRIPTION TYPE: Normal Associated Diagnoses: Paroxysmal atrial fibrillation; Bradycardia Coker-3 Acid Ethyl Esters (LOVAZA) 1 gram cap Take 1 Cap by mouth four times john ly. Qty: 360 Cap, Refills: 2 PRESCRIPTION TYPE: Normal aspirin 325 mg tablet Take 1 Tab by mouth daily. Qty: 90 Tab, Refills: 3 PRESCRIPTION TYPE: No Print traMADol (ULTRAM) 50 mg tablet Take 50 mg by mouth every 6 hours as needed. PRESCRIPTION TYPE: Historical Med busPIRone (BUSPAR) 10 mg tablet Take 15 mg by mouth twice daily. PRESCRIPTION TYPE: Historical Med meloxicam(+) (MOBIC) 15 mg tablet Take 15 mg by mouth daily. PRESCRIPTION TYPE: Historical Med cyclobenzaprine (FLEXERIL) 10 mg tablet Take 10 mg by mouth Daily. PRESCRIPTION TYPE: Historical Med donepezil (ARICEPT) 10 mg tablet Take 10 mg by mouth At Bedtime Daily. PRESCRIPTION TYPE: Historical Med atenolol (TENORMIN) 50 mg tablet Take 50 mg by mouth twice daily. PRESCRIPTION TYPE: Historical Med alprazolam (XANAX) 0.25 mg tablet Take 0.25 mg by mouth twice daily. PRESCRIPTION TYPE: Historical Med losartan (COZAAR) 100 mg tablet Take 100 mg by mouth Daily. PRESCRIPTION TYPE: Historical Med STOP taking these medications Meclizine 25 mg cap amLODIPine (NORVASC) 5 mg tablet Pending items needing follow up: Post-operative evaluation with Dr Monterroso Signed: Severiano Daniel DO 05/04/2013 cc: Primary Care Physician: Dagmar Lopes Verified Referring physicians: Additional provider(s): LINE OILER documented in this encounter Discharge Instructions * Anesthesia Post-Op* Kerrie Cook SRNA - 05/01/2013 10:21 AM DRAGLINE OILER Anesthesia Post-Op Note Admission Date: 04/30/2013 LOS: 1 day Anesthesia Type: General Difficult Intubation: No Post-op pain control: adequate analgesia/ given morphine in PACU and had nausea / vomiting from it. this is now an allergy on patients allergy list Level of consciousness: awake, alert and oriented Nausea/vomiting: nausea/vomiting in PACU from being medicated with morphine Recall: No Complications: None ENDER Rojo Pager [phone] LINE OILER documented in this encounter Medications at Time of Discharge Start Date End Date Medication Sig Dispensed Refills alprazolam (XANAX) 0.25 Take 0.25 mg 0 mg tablet by mouth twice daily as needed. donepezil (ARICEPT) 10 mg Take 10 mg by 0 tablet mouth At Bedtime Daily. losartan (COZAAR) 100 mg Take 100 mg [...] 0 gram tablet mouth at bedtime daily. 04/10/2012 04/06/2015 amLODIPine (NORVASC) 5 mg Take 1 Tab by 90 Tab 1 tablet mouth daily. 11/25/2011 10/10/2013 aspirin 325 mg tablet Take 1 Tab by 90 Tab 3 mouth daily. 07/08/2013 atenolol (TENORMIN) 50 mg Take 50 mg by 0 tablet mouth twice daily. 06/05/2015 busPIRone (BUSPAR) 10 mg Take 15 mg by 0 tablet mouth twice daily. 05/18/2017 Calcium Carbonate-Vitamin Take 1 Tab by 0 D3 (VITAMIN D-3) mouth daily. 180-5,000 mg-unit Tab 07/08/2013 cyclobenzaprine Take 10 mg by 0 (FLEXERIL) 10 mg tablet mouth Daily. 07/08/2013 digoxin (LANOXIN) 125 mcg Take 0.125 mg 0 tablet by mouth daily. 09/25/2014 levothyroxine (SYNTHROID) Take 125 mcg 0 125 mcg tablet by mouth daily. 04/11/2012 05/04/2018 Coker-3 Acid Ethyl Esters Take 1 Cap by 360 Cap 2 (LOVAZA) 1 gram cap mouth four times daily. 12/31/[address](+) Take 40 mg by 0 (PRILOSEC) 40 mg capsule mouth daily. 05/01/2013 07/08/2013 oxyCODone (ROXICODONE) 5 Take 1-2 Tabs 45 Tab 0 mg tablet by mouth every 4 hours as needed for Pain Earliest Fill Date: 05/01/13 02/04/2013 10/21/2014 sotalol AF (BETAPACE AF) Take 1 Tab by 180 Tab 0 120 mgIndications: mouth twice Paroxysmal atrial daily. fibrillation (HCC), Bradycardia 05/04/2018 traMADol (ULTRAM) 50 mg Take 50 mg by 0 tablet mouth every 6 hours as needed. documented as of this encounter Progress Notes * SCANNED DOCUMENT - 05/02/2013 2:03 PM DRAGLINE OILER LINE OILER * Severiano Daniel DO - 05/01/2013 1:43 PM DRAGLINE OILER Surgical Progress Note Faiza Nation Subjective: Pt reports she is tolerating a regular diet. She denies N/V. Objective: Vital Signs: Last Filed Vital Signs: 24 Hour Ran ge BP: 158/75 mmHg (05/01 1123) Temp: 36.5 C (97.7 F) (05/01 1123) Pulse: 61 (05/01 1123) Respirations: 18 PER MINUTE (05/01 1123) SpO2: 98 % (05/01 1123) O2 Delivery: None (Room Air) (05/01 1123) BP: (102-158)/(50-93) Temp: [36.3 C (97.4 F)-36.7 C (98.1 F)] Pulse: [61-107] Respirations: [11 PER MINUTE-20 PER MINUTE] SpO2: [92 %-100 %] O2 Delivery: [-] Intensity Pain Scale 0-10 (Pain 1): (not recorded) Intake/Output: Intake/Output Summary (Last 24 hours) at 05/01/13 1343 Last data filed at 05/01/13 1237 Gross per 24 hour Intake 2832.41 ml Output 1375 ml Net 1457.41 ml Physical Exam: A&O, NAD CTAB, no R/R/W RRR, no M/R/G S/appropriate TTP/ND/+BS; Lap port incisions c/d/i, with dermabond. No C/C/E Lab Results Component Value Date/Time HGB 13.4 10/19/2011 4:00 AM HCT 40.0 10/19/2011 4:00 AM WBC 6.7 10/19/2011 4:00 AM PLTCT 210 10/19/2011 4:00 AM NA 141 10/21/2011 4:17 AM K 4.0 10/21/2011 4:17 AM CL 106 10/21/2011 4:17 AM CO2 26 10/21/2011 4:17 AM BUN 10 10/21/2011 4:17 AM CR 0.81 10/21/2011 4:17 AM GLU 107* 10/21/2011 4:17 AM CA 8.7* 10/21/2011 4:17 AM MG 2.0 10/21/2011 4:17 AM ALBUMIN 3.2* 10/18/2011 10:15 AM TOTPROT 7.1 10/18/2011 10:15 AM AST 33 10/18/2011 10:15 AM ALT 32 10/18/2011 10:15 AM ALKPHOS 59 10/18/2011 10:15 AM Assessment & Plan: 78F with recurrent hiatal hernia, s/p exploratory laparoscopy, Lysis of adhesion s, with intraoperative findings: prohibitively dense adhesions causing procedure to be terminated. -Advance diet as tolerated -Discharge today Discussed with Dr Monterroso, who directed plan of care Severiano Daniel DO Pager: [phone] LINE OILER * Judson Dale RN - 04/30/2013 11:08 PM DRAGLINE OILER Received report from STEVEN Butler. Patient in bed. No concerns voiced at this ti me. LINE OILER * Ginger Villalobos MD - 04/30/2013 7:36 PM DRAGLINE OILER Department of Anesthesiology Post-Anesthesia Evaluation Name: Faiza Nation is a 78 y.o. female. :1935 Operative Procedure: 1. Exploratory laparoscopy 2. Lysis of adhesions Surgeon: Loc Surgery Date: 04/30/2013 Anesthesia: Gen Allergies Allergies Allergen Reactions Codeine NAUSEA AND VOMITING Morphine NAUSEA AND VOMITING Diagnostic Tests Results for orders placed during the hospital encounter of 04/30/13 (from the [facility] 24 hour(s)) POC GLUCOSE Collection Time 04/30/13 4:21 PM Component Value Range Glucose, POC 113 (*) 70 - 100 MG/DL Evaluation: Post-Anesthesia Vitals: BP: 153/93 mmHg (04/30 1927) Temp: 36.5 C (97.7 F) (04/30 1927) Pulse: 89 (04/30 1927) Respirations: 18 PER MINUTE (04/30 1927) SpO2: 93 % (04/30 1927) O2 Delivery: None (Room Air) (04/30 1927) Height: 167.6 cm (66") (04/30 1317) Mental Status: Alert and Oriented to person, place, time Airway: Patent, Spontaneously supports airway Respiratory Function:Respirations regular and unlabored , O2 via NC Cardiovascular Functions: Hemodynamically Stable Pain: Analgesia Adequate Analgesics received in PACU include: None Post-op Analgesia RX: IV/PO meds Nausea/Vomiting: None Postoperative Hydration: Adequate Temperature: 36.1C-38.4C Other: N/A Anesthetic Complications: None Assessment: Faiza Nation is a 78 y.o. female now post-anesthesia. PARS 9 Meets criteria for discharge from PACU at 17:26. Pt going to floor under care of primary team. Pacemaker was interrogated in PACU and functioning WNL. Evaluation by: Ginger Villalobos MD Date: 04/30/2013 LINE OILER * Jose Wayne RN - 04/30/2013 6:30 PM DRAGLINE OILER Patient transferred to bed from cart without complaints. Patient would like to e at. Advanced diet. Will follow. LINE OILER documented in this encounter H&P Notes * Deni Ferro MD - 04/30/2013 2:08 PM DRAGLINE OILER [facility] Surgery History and Physical Examination 04/30/2013 Patient: Faiza Nation Admission Date: 04/30/2013, LOS: 0 days Admission Diagnosis: No admission diagnoses for hospital encounter. ASSESSMENT: 1. 78 y.o. female with recurrent hiatal hernia after 2 previous repair attempts 2. Cardiac history significant for paroxysmal a-fib PLAN: OR today for robot hiatal hernia repair with possible Elise -consent signed in chart -blood consent signed in chart Discussed plan of care with staff surgeon, Dr. Monterroso, who directed plan of care __ HPI: Faiza Nation is a 78 y.o. female with long history of hiatal hernia s/p 2 previous repairs. Ms Nation complains of palpitations associated with chest ti ghtness and near-syncopal episodes. She reports that she has had palpitations an d irregular heart rhythm for a long time, over almost 10 years. It is not clear if she has had a prior diagnosis of paroxysmal atrial fibrillation, however, whe n she saw Dr. Gruber a month ago, he placed her on a Holter monitor and she repor ts that her numerous Holter monitors have always been negative and did not catch any episodes of atrial fibrillation. Patient feels chest postparndial tightness. Intermittent nausea and vomiting. Past Medical History Diagnosis Date Hypertension Hyperlipidemia Paroxysmal atrial fibrillation Hypothyroidism Dementia Anxiety Palpitations Lower GI bleeding Cardiac device in situ, other Reveal device , [employer]. Near syncope 09-16-2011 hospital admission Chest pain 09-16-2011 Stress test showed no ischemia Past Surgical History Procedure Date Hx cholecystectomy 2006 Hiatal hernia repair 1999 Hx lithotripsy 1984 Hx tonsillectomy childhood Cardiac catherization 2002 Medications: No current facility-administered medications on file prior to encounter. Current Outpatient Prescriptions on File Prior to Encounter Medication Sig Dispense Refill Calcium Carbonate-Vitamin D3 (VITAMIN D-3) 180-5,000 mg-unit Tab Take 1 Tab by mouth daily. atenolol (TENORMIN) 50 mg tablet Take 50 mg by mouth twice daily. levothyroxine (SYNTHROID) 125 mcg tablet Take 125 mcg by mouth daily. sertraline (ZOLOFT) 50 mg tablet Take 50 mg by mouth daily. POTASSIUM CHLORIDE PO Take 40 mEq by mouth daily. sucralfate (CARAFATE) 1 gram tablet Take 1 g by mouth as Needed. Meclizine 25 mg cap Take 1 Cap by mouth as Needed. sotalol AF (BETAPACE AF) 120 mg Take 1 Tab by mouth twice daily. 180 Tab 0 Coker-3 Acid Ethyl Esters (LOVAZA) 1 gram cap Take 1 Cap by mouth four times daily. 360 Cap 2 DISCONTD: amLODIPine (NORVASC) 5 mg tablet Take 1 Tab by mouth daily. 90 Ta b 1 aspirin 325 mg tablet Take 1 Tab by mouth daily. 90 Tab 3 traMADol (ULTRAM) 50 mg tablet Take 50 mg by mouth every 6 hours as needed. busPIRone (BUSPAR) 10 mg tablet Take 15 mg by mouth twice daily. meloxicam(+) (MOBIC) 15 mg tablet Take 15 mg by mouth daily. cyclobenzaprine (FLEXERIL) 10 mg tablet Take 10 mg by mouth Daily. donepezil (ARICEPT) 10 mg tablet Take 10 mg by mouth At Bedtime Daily. alprazolam (XANAX) 0.25 mg tablet Take 0.25 mg by mouth twice daily. OMEPRAZOLE (PRILOSEC PO) Take 40 mg by mouth daily. losartan (COZAAR) 100 mg tablet Take 100 mg by mouth Daily. Allergies: Codeine and Morphine History Social History Marital Status: Single Spouse Name: N/A Number of Children: N/A Years of Education: N/A Occupational History Not on file. Social History Main Topics Smoking status: Never Smoker Smokeless tobacco: Never Used Alcohol Use: No Drug Use: No Sexually Active: Not on file Other Topics Concern Not on file Social History Narrative No narrative on file Family History Problem Relation Age of Onset Stroke Mother Heart Attack Brother Vitals: Vital Signs: Last Filed In 24 Hours Vital Signs: 24 Hour Range BP: 134/62 mmHg (04/30 1317) Temp: 36.3 C (97.3 F) (11/12 1317) Pulse: 65 (04/30 1317) Respirations: 14 PER MINUTE (04/30 1317) SpO2: 98 % (04/30 1317) O2 Delivery: None (Room Air) (04/30 1317) Height: 167.6 cm (66") (04/30 1317) BP: (134)/(62) Temp: [36.3 C (97.3 F)] Pulse: [65] Respirations: [14 PER MINUTE] SpO2: [98 %] O2 Delivery: [-] Intensity Pain Scale 0-10 (Pain 1): 10 (04/30/131316) Intake/Output: No intake or output data in the 24 hours ending 04/30/13 1408 Physical Exam: GENERAL: alert and oriented HEART: Regular rate and rhythm, no murmurs ausculated LUNGS: clear bilaterally ABDOMEN: bowel sounds present, non-tender, no masses. Midline scar EXTREMITIES: No LE edema, pulses 2+ bilaterally NEURO: No numbness in all extremities bilaterally ROS: A complete 12 point ROS was obtained and was negative except for those listed in HPI Lab/Radiology/Other Diagnostic Tests: No results found for this basename: HGB:*,HCT:*,WBC:*,PLTCT:*,NA:*,K:*,CL:*,CO2: *,BUN:*,CR:*,GLU:*,CA:*,MG:*,PO4:*,ALBUMIN:*,TOTPROT:*,TOTBILI:*,AST:*,ALT:*,ALK PHOS:*,MARIA TERESA:*,LIPASE:*,PREALB:*,INR:*,PT:*,PTT:* in the last 72 hours Deni Ferro MD Pager [phone] LINE OILER documented in this encounter Procedure Notes * SCANNED DOCUMENT - 05/02/2013 2:03 PM DRAGLINE OILER Associated Order(s): PROCEDURES-SCAN LINE OILER * SCANNED DOCUMENT - 05/02/2013 2:03 PM DRAGLINE OILER LINE OILER * SCANNED DOCUMENT - 05/02/2013 2:03 PM DRAGLINE OILER LINE OILER * SCANNED DOCUMENT - 05/01/2013 9:35 AM DRAGLINE OILER LINE OILER documented in this encounter Miscellaneous Notes * Admin - SCANNED DOCUMENT - 05/02/2013 2:03 PM DRAGLINE OILER LINE OILER * Patient Education - SCANNED DOCUMENT - 05/02/2013 2:03 PM DRAGLINE OILER LINE OILER * Case Mgmt DC Plan - Aria Devine RN - 05/01/2013 2:25 PM DRAGLINE OILER Discharge Note: Spoke to Dr Daniel, patient will discharge today. Went by patient's room to check on her. She denied any CM needs. Aria Devine TRACTOR TRAILER OPERATOR Nurse Extractor Machine Operator Phone: [phone] Pager: [phone] LINE OILER * Care Plan - Evette Singer RN - 05/01/2013 1:27 PM DRAGLINE OILER Problem: Discharge Planning Goal: Participation in plan of care Outcome: Goal Achieved Date Met: 05/01/13 Pt involved in plan of care. Goal: Knowledge regarding plan of care Outcome: Goal Achieved Date Met: 05/01/13 Educated pt and family over discharge paperwork. All questions answered. Pt verb alized understanding. Goal: Prepared for discharge Outcome: Goal Achieved Date Met: 05/01/13 Pt prepared for discharge. PIV discontinued, cannula intact, no complications. P t discharged home with paperwork, prescriptions, and belongings in hand Problem: Anxiety Goal: Alleviation of anxiety Outcome: Goal Achieved Date Met: 05/01/13 Pt reports no anxiety at this time. Problem: Pain Goal: Management of pain Outcome: Goal Achieved Date Met: 05/01/13 Pt states pain managed on current regimen. Goal: Knowledge of pain management Outcome: Goal Achieved Date Met: 05/01/13 Educated pt over pain management. All questions answered. Pt verbalized understa nding. LINE OILER * Discharge Instructions - Evette Singer RN - 05/01/2013 12:47 PM DRAGLINE OILER Discharge Documentation: Lifting Restrictions Do not lift more than 10 pounds, equalto a gallon of milk in weight, for 6 weeks . Return Appointment Please call Dr Monterroso's office: to confirm your follow-up appointm ent on 05/23/2013 at 8:30 AM. Provider PAUL MONTERROSO [[id number]] Location [facility] Appointment date: 05/23/2013 Appointment time: 8:30 AM Report These Signs and Symptoms Please contact Dr Monterroso's office: or call and ask for the health information director general surgery resident if after hours, if you have any of the following symptoms: temperature higher than 100 degrees F, uncontrolled pain, pe rsistent nausea and/or vomiting, difficulty breathing, chest pain, severe abdomi nal pain, headache, unable to urinate, unable to have bowel movement or drainage with a foul odor Also contact Dr Monterroso if you have a rapid heart beat, cannot swallow, or have re gurgitation. Questions About Your Stay For questions or concerns regarding your hospital stay: DURING BUSINESS HOURS (8:00 AM - 4:30 PM): Call [phone] and asked to be transferred to your discharge attending physic yohannes (below). AFTER BUSINESS HOURS (4:30 PM - 8:00 AM, on weekends, or holidays): Call [phone] and ask the halver machine operator to page the on-call doctor for the discha rge attending physician (below). Discharging attending physician: PAUL MONTERROSO [[id number]] Regular Diet If you have questions about your diet after you go home, you can call a dietitia n at [phone]. Wound Care Keep wound clean and dry. Do not submerge under water. Incision Care *Keep your incision clean and dry. *May shower *Do not submerge incision in tub, pool, hot tub, or hu for 4 weeks. *Avoid applying deodorants, powders, creams, lotions, etc, to your incision for 4 weeks. *Your incision should gradually look better each day. If you notice unusual swe lling, redness, drainage, have increasing pain at the site, or have a fever grea ter than 100 degrees, notify your physician immediately. Opioid (Narcotic) Safety Information OPIOID (NARCOTIC) PAIN MEDICATION SAFETY We care about your comfort, and believe you need opioid medications at this time to treat your pain. An opioid is a strong pain medication. It is only availab le by prescription for moderate to severe pain. Usually these medications are u sed for only a short time to treat pain, but sometimes will be prescribed for lo nger. Talk with your doctor or nurse about how long they expect you to need thi s medication. When used the right way, opioids are safe and effective medications to treat you r pain, even when used for a long time. Yet, when used in the wrong way, opioid s can be dangerous for you or others. Opioids do not work for everyone. Most p atients do not get full relief of their pain from opioid medication; full relief of your pain may not be possible. For your safety, we ask you to follow these instructions: *Only take your opioid medication as prescribed. If your pain is not controlled with the prescribed dose, or the medication is not lasting long enough, call yo doctor. *Do not break or crush your opioid medication unless your doctor or pharmacist s ays you can. With certain medications, this can be dangerous, and may cause yesi th. *Never share your medications with others, even if they appear to have a good re ason. Never take someone else's pain medication-this is dangerous, and illegal (a crime). Overdoses and deaths have occurred. *Keep your opioid medications safe, as you would with small, in a lock box or sim ilar container. *Make sure your opioids are going to be secure, especially if you are around chi ldren or teens. *Talk with your doctor or pharmacist before you take other medications. *Avoid driving, operating machinery, or drinking alcohol while taking opioid kira n medication. This may be unsafe. Current Discharge Medication List START taking these medications Details oxyCODone (ROXICODONE) 5 mg tablet Take 1-2 Tabs by mouth every 4 hours as neede d for Pain Earliest Fill Date: 05/01/13 Qty: 45 Tab, Refills: 0 PRESCRIPTION TYPE: Print CONTINUE these medications which have NOT CHANGED Details digoxin (LANOXIN) 125 mcg tablet Take 0.125 mg by mouth daily. PRESCRIPTION TYPE: Historical Med omeprazole DR(+) (PRILOSEC) 40 mg capsule Take 40 mg by mouth daily. PRESCRIPTION TYPE: Historical Med potassium chloride SR (K-DUR) 20 mEq tablet Take 40 mEq by mouth daily. PRESCRIPTION TYPE: Historical Med sucralfate (CARAFATE) 1 gram tablet Take 1 g by mouth every 6 hours as needed. PRESCRIPTION TYPE: Historical Med Calcium Carbonate-Vitamin D3 (VITAMIN D-3) 180-5,000 mg-unit Tab Take 1 Tab by m outh daily. PRESCRIPTION TYPE: Historical Med levothyroxine (SYNTHROID) 125 mcg tablet Take 125 mcg by mouth daily. PRESCRIPTION TYPE: Historical Med sertraline (ZOLOFT) 50 mg tablet Take 50 mg by mouth daily. PRESCRIPTION TYPE: Historical Med sotalol AF (BETAPACE AF) 120 mg Take 1 Tab by mouth twice daily. Qty: 180 Tab, Refills: 0 PRESCRIPTION TYPE: Normal Associated Diagnoses: Paroxysmal atrial fibrillation; Bradycardia Coker-3 Acid Ethyl Esters (LOVAZA) 1 gram cap Take 1 Cap by mouth four times john ly. Qty: 360 Cap, Refills: 2 PRESCRIPTION TYPE: Normal aspirin 325 mg tablet Take 1 Tab by mouth daily. Qty: 90 Tab, Refills: 3 PRESCRIPTION TYPE: No Print traMADol (ULTRAM) 50 mg tablet Take 50 mg by mouth every 6 hours as needed. PRESCRIPTION TYPE: Historical Med busPIRone (BUSPAR) 10 mg tablet Take 15 mg by mouth twice daily. PRESCRIPTION TYPE: Historical Med meloxicam(+) (MOBIC) 15 mg tablet Take 15 mg by mouth daily. PRESCRIPTION TYPE: Historical Med cyclobenzaprine (FLEXERIL) 10 mg tablet Take 10 mg by mouth Daily. PRESCRIPTION TYPE: Historical Med donepezil (ARICEPT) 10 mg tablet Take 10 mg by mouth At Bedtime Daily. PRESCRIPTION TYPE: Historical Med atenolol (TENORMIN) 50 mg tablet Take 50 mg by mouth twice daily. PRESCRIPTION TYPE: Historical Med alprazolam (XANAX) 0.25 mg tablet Take 0.25 mg by mouth twice daily. PRESCRIPTION TYPE: Historical Med losartan (COZAAR) 100 mg tablet Take 100 mg by mouth Daily. PRESCRIPTION TYPE: Historical Med STOP taking these medications Meclizine 25 mg cap amLODIPine (NORVASC) 5 mg tablet Immunization History: There is no immunization history on file for this patient. Personal Belongings: Personal Items / Valuables: Eyeglasses/Contacts;Dentures Denture Type: Full upper Assistive Devices Type: Cane Electronic Devices: Cell Phone Where Are Valuables Stored?: room 5114-1 Case Management Agency Information: Other Instructions: LINE OILER * Operative Report (DICTATED ONLY) - Paul Monterroso - 04/30/2013 9:57 PM DRAGLINE OILER DATE OF OPERATION: 05/01/2013 ROOM #: 5114 SURGEON: Paul Monterroso MD PhD CO-SURGEON(S): AUDIOVISUAL TECH(S): Deni Ferro MD PREOPERATIVE DIAGNOSIS: Severe gastroesophageal reflux disease and dysphagia and atrial fibrillation fro m a recurrent hiatal hernia. POSTOPERATIVE DIAGNOSIS: Same plus extensive adhesions in the abdomen. OPERATIVE PROCEDURE: Exploratory laparoscopy and adhesiolysis. ANESTHESIA: FINDINGS: INDICATIONS FOR OPERATIVE PROCEDURE: Mrs. Nation is a 78-year-old white female who had hiatal hernia repair years ago. The patient had a midline incision. T he patient complains of dysphagia and gastroesophageal reflux disease. She was referred by her lacing string cutter and he believed that the mediastinal slippage of e wrap causes her atrial fibrillation. DESCRIPTION OF OPERATIVE PROCEDURE: After informed consent was obtained from e patient, the patient was taken to the operating room. Induction of anesthesia and endotracheal intubation were done uneventfully. The patient's abdomen was prepped and draped in regular sterile fashion. Using a Veress needle through e umbilical scar, the peritoneal cavity was penetrated and insufflated. All ski n incisions were locally anesthetized with a mixture of Marcaine and Xylocaine p rior to the incisions being made. Due to the previous midline incision, we inse rted our 1st trocar in the left midaxillary line. A 12 mm trocar was inserted. The camera was inserted and the peritoneal cavity was explored. There were ext ensive adhesions in left upper quadrant and midline. We inserted another 8 mm t rocar in the left midclavicular line and we started our adhesiolysis. We were a ble to clear an area in the left part of the abdomen to insert a 12 mm trocar to the left of the umbilicus. The camera was moved to the trocar and we continued with the adhesiolysis. The adhesions were scarred down densely and adherent. We used the ultrasonic ale, Sonicision from [employer] to take down some of thi s adhesions. The rest of the abdomen was scarred down and we could not make any clearance or an area for another trocar on the right side of the abdomen. Befo re I decided to abandon the case, I explored the area of the liver and the area near the diaphragm. There were dense scar tissues between the omentum and the l iver as well as the stomach that I could not visualize. I started some of the a dhesiolysis between the left lobe of the liver and the omentum and that started to bleed. All bleeding points were controlled. At this time, I made my decisio n to abandon the case. The reason for this is some of the concerns about the re current hiatal hernia and paraesophageal component is strangulation, but due to the extensive adhesions between the stomach and the liver and the omentum, I bel ieved that this incarceration will not occur due to the scarring of the stomach. I also refrained from converting the patient to open as the repair of this her vj through laparotomy is associated with high recurrence and multiple complicat ions and the inadequacy of retrieving the hernia sac. Also, due to the patient' s age and the laparotomy would be associated with complications and also I debat ed, if we injured the colon or the stomach or the esophagus, if that would be of any benefit to the patient's overall health. At this time, I abandoned the pro cedure and I spoke to the family who agreed and appreciated my concern and this decision and not to proceed with any risky procedure. The abdomen was deflated. Valsalva was applied and all trocars were removed. T he patient recovered from general anesthesia and [facility]. Paul Monterroso MD PhD NMS / MEDQ /[id number] cc: - Paul Monterroso MD PhD ATTESTATION I performed this procedure with a resident. Staff name: Paul Monterroso MD Date: 05/03/2013 LINE OILER * Procedures (Immed Post or Bedside) - Deni Ferro MD - 04/30/2013 3:54 PM DRAGLINE OILER Brief Op Note Date: 04/30/2013 Preoperative Dx: Recurrent hiatal hernia Postoperative Dx: same Procedure: 1. Exploratory laparoscopy 2. Lysis of adhesions Primary Surgeon: Paul Monterroso MD Occupational Therapy Supervisor(s): Deni Ferro MD Indications: 78F with recurrent hiatal hernia Findings: 1. Dense adhestions 2. Procedure terminated due to dense adhesion Anesthesia: General Estimated Blood Loss: Minimal Specimen(s) Removed/Disposition: None Complications: None Implants: None Drains: None Disposition: PACU - stable Deni Ferro MD Pager [phone] LINE OILER * Anesthesia Pre-Op - Leatha Spaulding MD - 04/30/2013 1:54 PM DRAGLINE OILER Pre-Operative Anesthesia Assessment Admission Date: 04/30/2013 LOS: 0 days Assessment: ASA III Plan: General Chief Complaint/ Planned Procedure: Robotic Umbilical Hernia Repair NPO :for greater than 8 hours Active Problems: * No active hospital problems. * Staff Surgeon: Loc Admission Status: A.M. Admission/Same Day Admission Surgery Date: 04/30/2013 Patient location: Same Day Surgery Historian: Patient Past Medical History Diagnosis Date Hypertension Hyperlipidemia Paroxysmal atrial fibrillation Hypothyroidism Dementia Anxiety Palpitations Lower GI bleeding Cardiac device in situ, other Reveal device , Tidy [employer]. Near syncope 09-16-2011 hospital admission Chest pain 09-16-2011 Stress test showed no ischemia Past Surgical History Procedure Date Hx cholecystectomy 2006 Hiatal hernia repair 1999 Hx lithotripsy 1984 Hx tonsillectomy childhood Cardiac catherization 2002 Complications: None Nursing Medical History Thyroid Disease Yes hypothyroid HTN Yes GI Ulcer Yes Hyperlipidemia Yes Arthritis Yes Arrhythmia Yes atrial fibrillation Psychiatric Disorder Yes depression Other Yes Nursing Surgical History Tonsillectomy Yes Adenoidectomy Yes Joint Replacement Yes 2knee replacement, 2 hip replacement Other Yes hiatal hernia repair, cholecystectomy Prior Anesthetic Types: General Family Anesthesia HX: None Allergies Allergen Reactions Codeine NAUSEA AND VOMITING Morphine NAUSEA AND VOMITING Medications Prior to Admission Meds for Inpatient Prescriptions prior to admission Medication Sig digoxin (LANOXIN) 125 mcg tablet Take 0.125 mg by mouth daily. Calcium Carbonate-Vitamin D3 (VITAMIN D-3) 180-5,000 mg-unit Tab Take 1 Tab by mouth daily. atenolol (TENORMIN) 50 mg tablet Take 50 mg by mouth twice daily. levothyroxine (SYNTHROID) 125 mcg tablet Take 125 mcg by mouth daily. sertraline (ZOLOFT) 50 mg tablet Take 50 mg by mouth daily. POTASSIUM CHLORIDE PO Take 40 mEq by mouth daily. sucralfate (CARAFATE) 1 gram tablet Take 1 g by mouth as Needed. Meclizine 25 mg cap Take 1 Cap by mouth as Needed. sotalol AF (BETAPACE AF) 120 mg Take 1 Tab by mouth twice daily. Coker-3 Acid Ethyl Esters (LOVAZA) 1 gram cap Take 1 Cap by mouth four times daily. aspirin 325 mg tablet Take 1 Tab by mouth daily. traMADol (ULTRAM) 50 mg tablet Take 50 mg by mouth every 6 hours as needed. busPIRone (BUSPAR) 10 mg tablet Take 15 mg by mouth twice daily. meloxicam(+) (MOBIC) 15 mg tablet Take 15 mg by mouth daily. cyclobenzaprine (FLEXERIL) 10 mg tablet Take 10 mg by mouth Daily. donepezil (ARICEPT) 10 mg tablet Take 10 mg by mouth At Bedtime Daily. alprazolam (XANAX) 0.25 mg tablet Take 0.25 mg by mouth twice daily. OMEPRAZOLE (PRILOSEC PO) Take 40 mg by mouth daily. losartan (COZAAR) 100 mg tablet Take 100 mg by mouth Daily. Social History Substance Use Topics Smoking status: Never Smoker Smokeless tobacco: Never Used Alcohol Use: No Review of Systems Airway:upper denture, missing lower molars Cardiovascular: HTN, Beta Fiona, last dose 04/29/13, Dysrhythmias, Exercise to lerance > 4 METS, Pacemaker Pacemaker only, Last interrogated 01/2013 at [facility], [employer] and Serial # [id number], placed for Afib DDD and negative stress test ~11/2012 Pulmonary: Negative GI:Hiatal Hernia, PUD, Nausea and , mild symptoms today Endocrine: Thyroid Hypothyroid and hypoglycemia Heme/Onc: WNL Renal:Negative Neurological:dementia Musculoskeletal:Arthritis Vital Signs (Last Filed in 24 hours) BP: 134/62 mmHg (04/30 1317) Temp: 36.3 C (97.3 F) (04/30 1317) Pulse: 65 (04/30 1317) Respirations: 14 PER MINUTE (04/30 1317) SpO2: 98 % (04/30 1317) O2 Delivery: None (Room Air) (04/30 1317) Height: 167.6 cm (66") (04/30 1317) Physical Exam Faiza Nation is a 78 y.o. female. Weight: 86.183 kg (190 lb) Height: 167.6 cm (66") BMI (Calculated): 30.67 Airway: Mallampati Class II, Normal thyromental distance, Good neck ROM, Neck olmos pple and symmetrical, Trachea midline and Teeth state of repair good Cardiovascular:Heart sounds: irregular rate and rhythm Pulmonary: Breath sounds: clear, equal bilaterally GI/Metabolic:Exam deferred Neurological:Alert and Oriented Diagnostic Tests Hematology: Lab Results Component Value Date HGB 13.4 10/19/2011 HCT 40.0 10/19/2011 PLTCT 210 10/19/2011 WBC 6.7 10/19/2011 NEUT 61 10/19/2011 ANC 4.09 10/19/2011 ALC 1.87 10/19/2011 LUIS 8 10/19/2011 AMC 0.54 10/19/2011 EOSA 2 10/19/2011 ABC 0.04 10/19/2011 MCV 86.0 10/19/2011 MCH 29.0 10/19/2011 MCHC 34.0 10/19/2011 MPV 8.0 10/19/2011 RDW 15.2 10/19/2011 General Chemistry: Lab Results Component Value Date NA 141 10/21/2011 K 4.0 10/21/2011 CL 106 10/21/2011 CO2 26 10/21/2011 GAP 9 10/21/2011 BUN 10 10/21/2011 CR 0.81 10/21/2011 GLU 107 10/21/2011 CA 8.7 10/21/2011 ALBUMIN 3.2 10/18/2011 MG 2.0 10/21/2011 TOTBILI 1.1 10/18/2011 Coagulation: No results found for this basename: pt, ptt, inr Labs: Pertinent labs reviewed EKG: Not obtained CXR: Not obtained Consults: Not obtained Assessment by: Janet Bull RN Pager Date: 04/30/2013 ATTESTATION I have reviewed carrera portions of the evaluation with the patient/parent/guardian and Agree, I have examined the patient's airway, heart, and lungs and Agree, Th e anesthesia plan is General and ASA Classification: ASA III Staff name: Leatha Spaulding MD Date: 04/30/2013 LINE OILER * Admin - SCANNED DOCUMENT - 04/30/2013 7:16 AM DRAGLINE OILER LINE OILER * Admin - SCANNED DOCUMENT - 04/30/2013 7:16 AM DRAGLINE OILER LINE OILER documented in this encounter Plan of Treatment Not on filedocumented as of this encounter Procedures Comments Procedure Name Priority Date/Time Associated Diagnosis PROCEDURES-SCAN 05/02/2013 2:03 PM DRAGLINE OILER POC GLUCOSE 05/01/2013 8:18 AM DRAGLINE OILER POC GLUCOSE 05/01/2013 3:35 AM DRAGLINE OILER POC GLUCOSE 04/30/2013 11:34 PM DRAGLINE OILER DEVICE EVALUATION - PPM STAT 04/30/2013 4:55 PM DRAGLINE OILER POC GLUCOSE 04/30/2013 4:21 PM DRAGLINE OILER POC GLUCOSE 04/30/2013 1:39 PM DRAGLINE OILER POC GLUCOSE 04/30/2013 8:33 AM DRAGLINE OILER documented in this encounter Results * PROCEDURES-SCAN (05/02/2013 2:03 PM DRAGLINE OILER) Narrative Performed At Transcriptions SCANNED DOCUMENT - 05/02/2013 2:03 PM DRAGLINE OILER * POC GLUCOSE (05/01/2013 8:18 AM DRAGLINE OILER) Glucose, POC 143 (H) 70 - 100 MG/DL [facility] Specimen Performing Organization Address City/[facility]/Zipcode Phone Number [facility] [address] [place] [address] * POC GLUCOSE (05/01/2013 3:35 AM DRAGLINE OILER) Glucose, POC 166 (H) 70 - 100 MG/DL [facility] Specimen Performing Organization Address City/[facility] Phone Number [facility] [address] [place] [address] * POC GLUCOSE (04/30/2013 11:34 PM DRAGLINE OILER) Glucose, POC 219 (H) 70 - 100 MG/DL [facility]IN LAB Specimen Performing Organization Address [facility] Phone Number [facility] LAB [address] [place] [address] * DEVICE EVALUATION - PPM (04/30/2013 4:55 PM DRAGLINE OILER) Generator OTHER OUTSIDE Yarn Inspector LAB Other Generator Model REVO MRI [id number] OTHER OUTSIDE # LAB Generator [id number] OTHER OUTSIDE Serial # LAB Generator 10/18/2011 [...] Research OTHER OUTSIDE Comments 2 LAB FÉLIX/EOL 2.81V OTHER OUTSIDE Indicator LAB Generator Medtronic OTHER OUTSIDE Yarn Inspector LAB Generator No OTHER OUTSIDE Investigational LAB Wireless No OTHER OUTSIDE Generator LAB Device Type DDD-PM OTHER OUTSIDE LAB Other Implant OTHER OUTSIDE Info LAB Atrial Lead OTHER OUTSIDE Yarn Inspector LAB Other Atrial Lead CAPSUREFIX MRI SURESCAN OTHER OUTSIDE Model # 5086-52 LAB Atrial Lead [id number] OTHER OUTSIDE Serial # LAB Atrial Lead 10/18/2011 OTHER OUTSIDE Implant Date LAB Atrial Lead OTHER OUTSIDE Location Other LAB Atrial Lead OTHER OUTSIDE Polarity Other LAB Atrial Lead 10 OTHER OUTSIDE Diaph. LAB Stimulation Atrial Lead Medtronic OTHER OUTSIDE Yarn Inspector LAB Atrial Lead No OTHER OUTSIDE Investigational LAB Atrial Lead active fixation OTHER OUTSIDE Fixation LAB Atrial Lead right atrial appendage OTHER OUTSIDE Location LAB Atrial Lead Pin IS1 OTHER OUTSIDE Connector LAB Atrial Lead Bipolar OTHER OUTSIDE Polarity LAB RV Lead OTHER OUTSIDE Yarn Inspector LAB Other RV Lead Model # CAPSUREFIX MRI SURESCAN OTHER OUTSIDE 5086-58 LAB RV Lead Serial [id number] OTHER OUTSIDE # LAB RV Lead Implant 10/18/2011 OTHER OUTSIDE Date LAB RV Lead OTHER OUTSIDE Location Other LAB RV Lead Diaph. 10 OTHER OUTSIDE Stimulation LAB RV Lead Medtronic OTHER OUTSIDE Yarn Inspector LAB RV Lead No OTHER OUTSIDE Investigational LAB RV Lead active fixation OTHER OUTSIDE Fixation LAB RV Lead RV low septum OTHER OUTSIDE Location LAB RV Lead Pin IS1 OTHER OUTSIDE Connector ICD LAB RV Lead Coil OTHER OUTSIDE LAB LV Lead OTHER OUTSIDE Yarn Inspector LAB Other LV Lead Model # OTHER OUTSIDE LAB LV Lead Serial OTHER OUTSIDE # LAB LV Lead Implant OTHER OUTSIDE Date LAB LV Lead OTHER OUTSIDE Location Other LAB LV Lead OTHER OUTSIDE Polarity Other LAB LV Lead OTHER OUTSIDE Configuration LAB Other LV Lead OTHER OUTSIDE Yarn Inspector LAB LV Lead OTHER OUTSIDE Investigational LAB LV Lead OTHER OUTSIDE Fixation LAB LV Lead OTHER OUTSIDE Location LAB LV Lead Pin OTHER OUTSIDE Connector LAB LV Lead OTHER OUTSIDE Polarity LAB LV Lead OTHER OUTSIDE Configuration LAB Device Mode AAIR/DDDR OTHER OUTSIDE LAB Lower Rate 60 OTHER OUTSIDE Limit LAB Upper Rate 130 [...] Switch On OTHER OUTSIDE Status LAB Device MD Shelby OTHER OUTSIDE Implanted By LAB Phone Check OTHER OUTSIDE Next Due LAB Pacemaker No OTHER OUTSIDE Dependant LAB # Mode S. OTHER OUTSIDE Events LAB # High AT/AF 171 treated, 28 monitored OTHER OUTSIDE Evts LAB # High V Events 0 OTHER OUTSIDE LAB Time in AT/AF 16.2% OTHER OUTSIDE LAB V Rate in AT/AF 65 OTHER OUTSIDE LAB Single PVSc 3.1 per hr OTHER OUTSIDE LAB PVC runs 0.1 per hr OTHER OUTSIDE LAB Battery Voltage 3.0 OTHER OUTSIDE LAB Estimated OTHER OUTSIDE Longevity LAB Magent Rate OTHER OUTSIDE LAB A Sense mv 1.8 OTHER OUTSIDE LAB A Lead ohms 384 OTHER OUTSIDE LAB A Capture V 1.0 OTHER OUTSIDE LAB A Capture ms 0.4 OTHER OUTSIDE LAB Ao Voltage 2.0 OTHER OUTSIDE LAB AO Pulse Width 0.4 OTHER OUTSIDE LAB RV Sense mv 20.3 OTHER OUTSIDE LAB RV Lead ohms 608 OTHER OUTSIDE LAB RV Capture V 1.0 [...] Saved to Disc No OTHER OUTSIDE LAB Date of Last 04/30/2013 OTHER OUTSIDE Programming LAB Next OTHER OUTSIDE Programming LAB Check Due Date of Last OTHER OUTSIDE Interrogation LAB Device OTHER OUTSIDE Reprogram LAB Comments Initial Rhythm ASVS OTHER OUTSIDE LAB Underlying SR OTHER OUTSIDE Rhythm LAB -VS% 9.9 OTHER OUTSIDE LAB -SPA CONCIERGE% 7.4 OTHER OUTSIDE LAB -VS% 81.3 OTHER OUTSIDE LAB AP-SPA CONCIERGE% 1.5 OTHER OUTSIDE LAB Initial Rhythm -VS OTHER OUTSIDE LAB Device Function Yes OTHER OUTSIDE WNL LAB Device No OTHER OUTSIDE Reprogram LAB Programming? Yes OTHER OUTSIDE LAB Interrogation? OTHER OUTSIDE LAB Device Check by OTHER OUTSIDE Rep LAB Date of Last OTHER OUTSIDE ICM Evaluation LAB Next ICM Check OTHER OUTSIDE Due LAB Activity 1.1 hr/day OTHER OUTSIDE LAB HRV (range ms) OTHER OUTSIDE LAB FL IND RANGE OTHER OUTSIDE (Last Fluid LAB Index Range) FL IND OTHER OUTSIDE TODAY(Today LAB Fluid Index Value) THOR IMP OTHER OUTSIDE RANGE(Last LAB Optivol Thoracic Impedence Range) THOR IMP OTHER OUTSIDE TODAY(Today's LAB Optivol Thoracic Impedence Value) HF Patient No OTHER OUTSIDE LAB ICM Evaluation OTHER OUTSIDE LAB Thoracic OTHER OUTSIDE Impedance LAB Evaluated? Date of Last OTHER OUTSIDE Remote Check LAB Next Remote OTHER OUTSIDE Check Due LAB Enrollment Date OTHER OUTSIDE LAB Date of OTHER OUTSIDE baseline remote LAB transmission AT/AF Daily OTHER OUTSIDE [place] Hours LAB Average Vent OTHER OUTSIDE Rate during LAB AT/AF #BPM Average Vent OTHER OUTSIDE Rate During LAB AT/AF #Hours Remote No OTHER OUTSIDE Monitoring? LAB Remote Check? OTHER OUTSIDE LAB Daily [place] OTHER OUTSIDE Threshld Alert? LAB Average OTHER OUTSIDE Venticular Rate LAB AT/AF On/Off VF OTHER OUTSIDE Detection/Thera LAB py Off Specimen Narrative Performed At [04/30/2013 5:03:01 PM - VIVIANA BARRAGAN] OTHER OUTSIDE LAB Device check pre post. Normal device function.171 treated AT/AF episodes, longest 30 hrs. Time in AT/AF has increased from 11.4% to 16.2% and average AT/AF time/day 3.9 hrs/day (up from 2.7 hrs/day). A rates up to 302 bpm and V rates controlled during AT/AF. Markers/EGMs show AFib/Flutter. Pt has known history and takes full strength ASA (h/o falls and syncope). ATP Rx1: Ramp terminates 31% of treated episodes, Rx2: Burst terminates 7.5%.There has been a total of 3,738 ATP sequences delivered, two aborted. Pt is overdue to see Dr Sosa and has requested Dr Gruber to manage device care closer to her home. I will forward today's findings to Dr Gruber in [place], [place]. Procedure Note Ernesto Sosa MD - 05/01/2013 8:28 AM DRAGLINE OILER [04/30/2013 5:03:01 PM - VIVIANA BARRAGAN] Device check pre post. Normal device function. 171 treated AT/AF episodes, longest 30 hrs. Time in AT/AF has increased from 11.4% to 16.2% and average AT/AF time/day 3.9 hrs/day (up from 2.7 hrs/day). A rates up to 302 bpm and V rates controlled during AT/AF. Markers/EGMs show AFib/Flutter. Pt has known history and takes full strength ASA (h/o falls and syncope). ATP Rx1: Ramp terminates 31% of treated episodes, Rx2: Burst terminates 7.5%. There has been a total of 3,738 ATP sequences delivered, two aborted. Pt is overdue to see Dr Sosa and has requested Dr Gruber to manage device care closer to her home. I will forward today's findings to Dr Gruber in [place], [place]. Performing Organization Address City/State/Zipcode Phone Number OTHER OUTSIDE LAB * POC GLUCOSE (04/30/2013 4:21 PM DRAGLINE OILER) Glucose, POC 113 (H) 70 - 100 MG/DL [facility] Specimen Performing Organization Address City/State/Zipcode Phone Number [facility] [address] [place] [address] * POC GLUCOSE (04/30/2013 1:39 PM DRAGLINE OILER) Glucose, POC 116 (H) 70 - 100 MG/DL [facility] Specimen Performing Organization Address City/[facility] Phone Number [facility] [address] [place] [address] * POC GLUCOSE (04/30/2013 8:33 AM DRAGLINE OILER) Glucose, POC 140 (H) 70 - 100 MG/DL [facility] Specimen Performing Organization Address City/[facility] Phone Number [facility] [address] [place] [address] documented in this encounter Visit Diagnoses Diagnosis Paroxysmal atrial fibrillation (HCC) - Primary Atrial fibrillation Bradycardia Other specified cardiac dysrhythmias Hiatal hernia Diaphragmatic hernia without mention of obstruction or gangrene documented in this encounter Administered Medications Action Date Dose Rate Site Medication Order MAR Action 05/01/2013 9:00 AM DRAGLINE OILER 0.25 mg ALPRAZolam (XANAX) tablet 0.25 mg Given 0.25 mg, Oral, TWICE DAILY, First dose on Mon04/30/13 at 2100, Until Discontinued 0.25 mg Given 04/30/2013 10:11 PM DRAGLINE OILER 05/01/2013 9:00 AM DRAGLINE OILER 50 mg atenolol (TENORMIN) tablet 50 mg Given 50 mg, Oral, TWICE DAILY, First dose on Mon04/30/13 at 2100, Until Discontinued 50 mg Given 04/30/2013 8:52 PM DRAGLINE OILER 05/01/2013 9:00 AM DRAGLINE OILER 15 mg busPIRone (BUSPAR) tablet 15 mg Given 15 mg, Oral, TWICE DAILY, First dose on Mon04/30/13 at 2100, Until Discontinued 15 mg Given 04/30/2013 8:52 PM DRAGLINE OILER 04/30/2013 8:52 PM DRAGLINE OILER 10 mg cyclobenzaprine (FLEXERIL) tablet 10 mg Given 10 mg, Oral, DAILY, First dose on Mon04/30/13 at 2100, Until Discontinued 05/01/2013 9:00 AM DRAGLINE OILER 125 mcg digoxin (LANOXIN) tablet 125 mcg Given 125 mcg, Oral, DAILY, First dose on Mon04/30/13 at 1900, Until Discontinued, NOTE: PHARMACOKINETIC MONITORING, 125 mcg Given 04/30/2013 8:52 PM DRAGLINE OILER 04/30/2013 8:52 PM DRAGLINE OILER 10 mg donepezil (ARICEPT) tablet 10 mg Given 10 mg, Oral, AT BEDTIME DAILY, First dose on Mon04/30/13 at 2100, Until Discontinued 04/30/2013 8:52 PM DRAGLINE OILER 40 mg Arm, Left enoxaparin (LOVENOX) syringe 40 mg Given 40 mg, Subcutaneous, DAILY, First dose on Mon04/30/13 at 2100, Until Discontinued, For patients undergoing surgery: Consult physician in advance -- enoxaparin is an anticoagulant and may need to be held for 12hr prior to surgery or invasive procedures. NOTE: This is a HIGH ALERT Medication., 04/30/2013 1:15 PM DRAGLINE OILER 1,000 mL 20 mL/hr Hand, Right lactated ringers infusion Given - New 1,000 mL, 1,000 mL, Intravenous, at 20 Bag mL/hr, CONTINUOUS, Starting Mon04/30/13 at 1300, Until Mon04/30/13 at 1858 LACTATED RINGERS IV SOLP (AcuDose pull) NOW, 1 dose, Mon04/30/13 at 1315, Melissa Santana: cabinet override, Melissa Santana: cabinet override, 05/01/2013 7:00 AM DRAGLINE OILER 125 mcg levothyroxine (SYNTHROID) tablet 125 mcg Given 125 mcg, Oral, DAILY, First dose on Mon04/30/13 at 1900, Until Discontinued 125 mcg Given 04/30/2013 8:52 PM DRAGLINE OILER LIDOCAINE (PF) 10 MG/ML (1 %) IJ SOLN (AcuDose pull) NOW, 1 dose, Mon04/30/13 at 1315, Melissa Santana: cabinet override, Melissa Santana: cabinet override, 04/30/2013 1:15 PM DRAGLINE OILER 0.2 mL Hand, Right lidocaine PF 1% (10 mg/mL) injection Given 0.1-2 mL 0.1-2 mL, Injection, NEEDED, Starting Mon04/30/13 at 1355, Until Mon05/01/13 at 0653, Other..., for IV insertion 05/01/2013 9:00 AM DRAGLINE OILER 100 mg losartan (COZAAR) tablet 100 mg Given 100 mg, Oral, DAILY, First dose on Mon04/30/13 at 1900, Until Discontinued 100 mg Given 04/30/2013 8:52 PM DRAGLINE OILER 05/01/2013 9:00 AM DRAGLINE OILER 15 mg meloxicam(+) (MOBIC) tablet 15 mg Given 15 mg, Oral, DAILY, First dose on Mon04/30/13 at 1900, Until Discontinued 15 mg Given 04/30/2013 8:52 PM DRAGLINE OILER 05/01/2013 1:17 PM DRAGLINE OILER 10 mg oxyCODone (ROXICODONE) tablet 5-10 mg Given 5-10 mg, Oral, EVERY 4 HOURS PRN, Starting Mon04/30/13 at 1616, Until Mon05/01/13 at 1552, Pain, NOTE: This is a HIGH ALERT Medication., 5 mg Given 05/01/2013 9:17 AM DRAGLINE OILER 5 mg Given 05/01/2013 8:03 AM DRAGLINE OILER 05/01/2013 9:00 AM DRAGLINE OILER 40 mg pantoprazole (PROTONIX) injection 40 mg Given 40 mg, Intravenous, DAILY, First dose on Mon04/30/13 at 1930, Until Discontinued 40 mg Given 04/30/2013 8:52 PM DRAGLINE OILER 05/01/2013 9:00 AM DRAGLINE OILER 50 mg sertraline (ZOLOFT) tablet 50 mg Given 50 mg, Oral, DAILY, First dose on Mon04/30/13 at 1900, Until Discontinued 50 mg Given 04/30/2013 8:52 PM DRAGLINE OILER 04/30/2013 5:20 PM DRAGLINE OILER 50 mL/hr sodium chloride 0.9 % infusion Given - New 1,000 mL, Intravenous, at 50 mL/hr, Bag CONTINUOUS, Starting Mon04/30/13 at 1630, Until Mon05/01/13 at 0653, Saline lock when patient taking PO, 05/01/2013 9:00 AM DRAGLINE OILER 120 mg sotalol AF (BETAPACE AF) tablet 120 mg Given 120 mg, Oral, TWICE DAILY, First dose on Mon04/30/13 at 2100, Until Discontinued 120 mg Given 04/30/2013 8:52 PM DRAGLINE OILER 05/01/2013 11:30 AM DRAGLINE OILER 50 mg traMADol (ULTRAM) tablet 50 mg Given 50 mg, Oral, ONCE, 1 dose, Mon05/01/13 at 1130 documented in this encounter
--- OUTSIDE RECORDS SUMMARY | 2018-12-05 14:47 | XMS REPORT | Encounter Summary ---
Author Author [facility] Organization [facility] Address Unknown Phone Unavailable Care Team Providers Care Phlebotomy Specialist Name Role Phone Dorian Muse MD Unavailable Dagmar Lopes MD PCP Ernesto Sosa MD 100 Melvin Monterroso MD Unavailable Unavailable Reason for Visit * Reason Comments Records Request Dr. Karol Gruber (p) [phone] / (f) [phone] Encounter Details Care Team Description Date Type Department Aria Alcantar, RN Records Request (Dr. Karol Grbuer (p) [phone] / (f) [phone] ) 04/03/2013 Documentation The [address] [place] [address] Social History Date Tobacco Use Types Packs/Day Years Used Never Smoker Smokeless Tobacco: Never Used Drinks/Week oz/Week Comments Alcohol Use No Sex Assigned at Date Recorded Not on file Industry Job Start Date Occupation Not on file Not on file Not on file Travel End Travel History Travel Start No recent travel history available. documented as of this encounter Progress Notes * Aria Alcantar, STEVEN - 04/03/2013 11:12 AM CDT Request for the following medical records for purpose of continuity of care: Has an appointment with RAD on 04/05/2013 Please send most recent OV note, EKG and labs. Please include most recent Holter report and strips. Please include ECHO, stress test, and any other cardiac information / testing if available. Please Fax to: [phone] [facility] Dr. Sosa Attention: Alisha Shah, RN Thank you, Alisha Alcantar RN [phone] documented in this encounter Plan of Treatment Not on filedocumented as of this encounter Visit Diagnoses Not on filedocumented in this encounter
--- OUTSIDE RECORDS SUMMARY | 2018-12-05 14:47 | XMS REPORT | Encounter Summary ---
Author Author [facility] Organization [facility] Address Unknown Phone Unavailable Care Team Providers Care Internal Medicine Nurse Name Role Phone Dorian Muse MD Unavailable Dagmar Lopes MD PCP Ernesto Sosa MD 100 Reason for Visit * Reason Comments Medication Refill amlodipine Encounter Details Care Team Description Date Type Department Shari Ricci RN Medication Refill (amlodipine) 04/10/2012 Refill The [facility] [address] [facility] [place] [address] Social History Date Tobacco Use Types Packs/Day [...]
--- OUTSIDE RECORDS SUMMARY | 2018-12-05 14:47 | XMS REPORT | Encounter Summary ---
Author Author [facility] Organization [facility] Address Unknown Phone Unavailable Care Team Providers Care Registration Specialist Name Role Phone Dorian Muse MD Unavailable Dagmar Lopes MD PCP Ernesto Sosa MD 100 Reason for Visit * Reason Comments Remote Monitoring [facility] unable to transfer remote monitoring. Transferred remote Questions monitoring. Encounter Details Care Team Description Date Type Department Brandon Alanis RN Remote Monitoring Questions ([facility] unable to transfer remote monitoring. Transferred remote monitoring. ) 12/30/2011 Telephone The [facility] [address] [facility] [place] [address] Social History Date Tobacco Use Types Packs/Day [...] Notes * Telephone Encounter - Brandon Alanis MA - 01/05/2012 9:15 AM CDT Transferred [facility]link remote monitoring to [facility] ). DB. * Telephone Encounter - Brandon Alanis MA - 12/30/2011 11:58 AM CDT 1157 Received a call from nurse @ [facility] in [place], [place]. She is unable to send a request to transfer Carelink remote monitoring to their office. Receiv es message that she needs to contact me. I attempted to transfer remote monitori ng to their practice, but unable to d/t command button blacked out. DB 1356 Call placed to [employer] support. Issues d/t a request was already plac ed to transfer to [facility]. Canceled request. documented in this encounter Plan of Treatment Not on filedocumented as of this encounter Visit Diagnoses Not on filedocumented in this encounter
--- OUTSIDE RECORDS SUMMARY | 2018-12-05 14:47 | XMS REPORT | Encounter Summary ---
Author Author [facility] Organization [facility] Address Unknown Phone Unavailable Care Team Providers Care Hone Operator Name Role Phone Dorian Muse MD Unavailable Dagmar Lopes MD PCP Ernesto Sosa MD 100 Melvin Monterroso MD Unavailable Unavailable Reason for Referral * Referred By Contact Referred To Contact Status Reason Specialty Diagnoses / Procedures Melvin Monterroso MD [address] [place] [address] Closed Diagnoses Hiatal hernia P rocedures FL UPPER GI SINGLE CONTRST W KUB Reason for Visit * Reason Comments Mass Encounter Details Care Team Description Date Type Department Melvin Monterroso MD [address] [place] [address] Hiatal hernia (Primary Dx) 03/07/2013 Office Visit [facility] [address] [place] [address] Social History Date Tobacco Use Types Packs/Day [...] Signs Reading Time Taken Comments Vital Sign 122/83 03/07/2013 2:25 PM CDT Blood Pressure 89 03/07/2013 2:25 PM CDT Pulse 36.3 C (97.3 F) 03/07/2013 2:25 PM CDT Temperature 18 03/07/2013 2:25 PM CDT Respiratory Rate - - Oxygen Saturation - - Inhaled Oxygen Concentration 88.5 kg (195 lb 3.2 oz) 03/07/2013 2:25 PM CDT Weight 167.6 cm (5' 6") 03/07/2013 2:25 PM CDT Height 31.51 03/07/2013 2:25 PM CDT Body Mass Index documented in this encounter Progress Notes * Melvin Monterroso - 03/07/2013 2:27 PM CDT Subjective: Faiza Nation is a 78 y.o. female. History of Present Illness Ms. Faiza Nation is a 76-year-old female, who was referred to me for the presen ce of a large hiatal hernia. She is a pleasant lady with history of hypertension , hypothyroidism, hyperlipidemia and dementia with paroxysmal atrial fibrillatio n. She is referred here for to be evaluated for reduction of her hiatal hernia as a reason for her atrial fibrillation. Ms Nation complains of palpitations associ ated with chest tightness and near-syncopal episodes. She reports that she has h ad palpitations and irregular heart rhythm for a long time, over almost 10 years . It is not clear if she has had a prior diagnosis of paroxysmal atrial fibrilla tion, however, when she saw Dr. Gruber a month ago, he placed her on a Holter mon itor and she reports that her numerous Holter monitors have always been negative and did not catch any episodes of atrial fibrillation. Patient feels chest postparndial tightness. Intermittent nausea and vomiting. Past Medical History Diagnosis Date Hypertension Hyperlipidemia Paroxysmal atrial fibrillation Hypothyroidism Dementia Anxiety Palpitations Lower GI bleeding Cardiac device in situ, other Reveal device , Medtronic. Near syncope 09-16-2011 hospital admission Chest pain 09-16-2011 Stress test showed no ischemia Past Surgical History Procedure Date Hx cholecystectomy 2007 Hiatal hernia repair 1999 Hx lithotripsy 1984 Hx tonsillectomy childhood Cardiac catherization 2003 Family History Problem Relation Age of Onset Stroke Mother Heart Attack Brother History Social History Marital Status: Single Spouse Name: N/A Number of Children: N/A Years of Education: N/A Social History Main Topics Smoking status: Never Smoker Smokeless tobacco: Never Used Alcohol Use: No Drug Use: No Sexually Active: Not on file Other Topics Concern Not on file Social History Narrative No narrative on file Review of Systems Constitutional: Negative for fever, chills, diaphoresis, activity change, appeti te change, fatigue and unexpected weight change. HENT: Positive for trouble swallowing. Negative for hearing loss, ear pain, nose bleeds, congestion, sore throat, facial swelling, rhinorrhea, sneezing, drooling , mouth sores, neck pain, neck stiffness, dental problem, voice change, postnasa l drip, sinus pressure, tinnitus and ear discharge. Eyes: Negative for photophobia, pain, discharge, redness, itching and visual dis turbance. Respiratory: Positive for chest tightness and wheezing. Negative for apnea, coug h, choking and shortness of breath. Cardiovascular: Positive for palpitations. Negative for chest pain and leg swell ing. Gastrointestinal: Negative for nausea, vomiting, abdominal pain, diarrhea, const ipation, blood in stool, abdominal distention, anal bleeding and rectal pain. Genitourinary: Positive for frequency. Negative for dysuria, urgency, hematuria, flank pain, decreased urine volume, vaginal bleeding, vaginal discharge, enures is, difficulty urinating, genital sores, vaginal pain, menstrual problem, pelvic pain and dyspareunia. Musculoskeletal: Negative for myalgias, back pain, joint swelling, arthralgias a nd gait problem. Skin: Negative for color change, pallor, rash and wound. Neurological: Negative for dizziness, tremors, seizures, syncope, facial asymmet ry, speech difficulty, weakness, light-headedness, numbness and headaches. Hematological: Negative for adenopathy. Bruises/bleeds easily. Psychiatric/Behavioral: Negative for suicidal ideas, hallucinations, behavioral problems, confusion, disturbed wake/sleep cycle, self-injury, dysphoric mood, de creased concentration and agitation. The patient is not nervous/anxious and is n ot hyperactive. Objective: sotalol AF (BETAPACE AF) 120 mg Take 1 Tab by mouth twice daily. [place]-3 Acid Ethyl Esters (LOVAZA) 1 gram cap Take 1 Cap by mouth four times daily. amLODIPine (NORVASC) 5 mg tablet Take 1 Tab by mouth daily. aspirin 325 mg tablet Take 1 Tab by mouth daily. traMADol (ULTRAM) 50 mg tablet Take 50 mg by mouth every 6 hours as needed. busPIRone (BUSPAR) 10 mg tablet Take 15 mg by mouth twice daily. Cholecalciferol (Vitamin D3) (VITAMIN D-3) 2,000 unit Tab Take 1 Tab by mout h daily. levothyroxine (SYNTHROID) 100 mcg tablet Take 100 mcg by mouth daily. meloxicam(+) (MOBIC) 15 mg tablet Take 15 mg by mouth daily. sertraline (ZOLOFT) 100 mg tablet Take 100 mg by mouth Daily. cyclobenzaprine (FLEXERIL) 10 mg tablet Take 10 mg by mouth Daily. donepezil (ARICEPT) 10 mg tablet Take 10 mg by mouth At Bedtime Daily. atenolol (TENORMIN) 50 mg tablet Take 50 mg by mouth twice daily. alprazolam (XANAX) 0.25 mg tablet Take 0.25 mg by mouth daily. OMEPRAZOLE (PRILOSEC PO) Take 40 mg by mouth daily. losartan (COZAAR) 100 mg tablet Take 100 mg by mouth Daily. Filed Vitals: 03/07/13 1425 BP: 122/83 Pulse: 89 Temp: 36.3 C (97.3 F) TempSrc: Oral Resp: 18 Height: 167.6 cm (66") Weight: 88.542 kg (195 lb 3.2 oz) Body mass index is 31.51 kg/(m^2). Physical Exam Deferred from this setting Assessment and Plan: Will get an UGI to evaluate the hernia. documented in this encounter Miscellaneous Notes * Outside Records - SCANNED DOCUMENT - 04/08/2013 12:30 PM CDT * Admin - SCANNED DOCUMENT - 04/02/2013 1:40 PM CDT * Outside Records - SCANNED DOCUMENT - 03/12/2013 1:55 PM CDT * Admin - SCANNED DOCUMENT - 03/12/2013 1:39 PM CDT documented in this encounter Plan of Treatment Order Schedule Name Type Priority Associated Diagnoses Expected: 03/25/2013, Expires: 03/18/2014 FL UPPER GI SINGLE Imaging Routine Hiatal hernia CONTRST W KUB documented as of this encounter Visit Diagnoses Diagnosis Hiatal hernia - Primary Diaphragmatic hernia without mention of obstruction or gangrene documented in this encounter
--- OUTSIDE RECORDS SUMMARY | 2018-12-05 14:47 | XMS REPORT | Encounter Summary ---
Author Author [facility] Organization [facility] Address Unknown Phone Unavailable Care Team Providers Care Edge Stripper Name Role Phone Dorian Muse MD Unavailable Dagmar Lopes MD PCP Ernesto Sosa MD 100 Reason for Visit * Reason Comments Remote Monitoring Transferred care back to Dr. Gruber. Transfer remote monitoring. Questions Encounter Details Care Team Description Date Type Department Lety Alanis RN Remote Monitoring Questions (Transferred care back to Dr. Gruber. Transfer remote monitoring. ) 12/22/2011 Telephone The [facility] [address] [facility] [place] [address] Social History Date Tobacco Use Types Packs/Day [...] Telephone Encounter - Lety Alanis MA - 12/22/2011 2:49 PM CDT No initial Carelink transmission received. She has transferred care back to Dr. Gruber. Sent request to transfer remote monitoring to Dr. Gruber's office. DB. * Telephone Encounter - Lety Alanis MA - 12/22/2011 2:49 PM CDT Message copied by LETY ALANIS on MonDec 22, 2011 2:49 PM ------ Message from: LETY ALANIS Created: MonNov 29, 2011 12:16 PM Regarding: Initial Transmission Received? Enrolled in Carelink remote monitoring on 11/28. Has initial transmission be en received yet? Thanks ----- Message ----- From: Keely Madiha Sent: 11/25/2011 2:19 PM To: Mac Ep Remote Subject: Enroll in Carelink New implant 10/18/11. In office device check today. Please make sure she is enrolled in Carelink if not already. Thanks documented in this encounter Plan of Treatment Not on filedocumented as of this encounter Visit Diagnoses Not on filedocumented in this encounter
--- OUTSIDE RECORDS SUMMARY | 2018-12-05 14:47 | XMS REPORT | Encounter Summary ---
Author Author [facility] Organization [facility] Address Unknown Phone Unavailable Care Team Providers Care Media Intern Name Role Phone Dorian Muse MD Unavailable Dagmar Lopes MD PCP Ernesto Sosa MD 100 Reason for Visit * Reason Comments Medication Refill Sotalol and Lovaza Encounter Details Care Team Description Date Type Department Manju Contreras coating inspector Refill (Sotalol and Lovaza) 04/11/2012 Refill The [facility] [address] [place] [address] Social History Date Tobacco Use Types Packs/Day [...] Diagnosis Paroxysmal atrial fibrillation (HCC) Atrial fibrillation Bradycardia Other specified cardiac dysrhythmias documented in this encounter
--- OUTSIDE RECORDS SUMMARY | 2018-12-05 14:47 | XMS REPORT | Encounter Summary ---
Author Author [facility] Organization [facility] Address Unknown Phone Unavailable Care Team Providers Care Invasive Cardiologist Name Role Phone Dorian Muse MD Unavailable Dagmar Lopes MD PCP Ernesto Sosa MD 100 Reason for Visit * Reason Comments Appointment Request pt overdue Encounter Details Care Team Description Date Type Department Sera Miranda RN Appointment Request (pt overdue) 02/04/2013 Telephone The [facility] [address] [place], [place] [address] Social History Date Tobacco Use Types Packs/Day [...] encounter Miscellaneous Notes * Telephone Encounter - Sera Miranda RN - 02/04/2013 1:54 PM CDT Will have scheduling set up OV. Message copied by SERA MIRANDA on MonFeb 04, 2013 1:54 PM ------ Message from: ABY PEOPLES Created: MonFeb 04, 2013 1:41 PM FYI I refilled # 180 of sotatol but no refills as she is overdue for appt And none scheduled Aby documented in this encounter Plan of Treatment Not on filedocumented as of this encounter Visit Diagnoses Diagnosis A-fib (HCC) - Primary Atrial fibrillation HTN (hypertension) Unspecified essential hypertension Hyperlipidemia Other and unspecified hyperlipidemia Chest pain Chest pain, unspecified documented in this encounter
--- OUTSIDE RECORDS SUMMARY | 2018-12-05 14:47 | XMS REPORT | Encounter Summary ---
Author Author [facility] Organization [facility] Address Unknown Phone Unavailable Care Team Providers Care Crane Hoist Or Lift Operator Name Role Phone Dorian Muse MD Unavailable Dagmar Lopse MD PCP Ernesto Sosa MD 100 Reason for Visit * Reason Comments Cardiac Device Remote Enrolled in Carelink remote monitoring. Enrollment Encounter Details Care Team Description Date Type Department Brandon Alanis RN Cardiac Device Remote Enrollment (Enrolled in Carelink remote monitoring. ) 11/29/2011 Documentation The [facility] [address] [facility] [place] [address] Social History Date Tobacco Use Types Packs/Day Years Used Never Smoker Smokeless Tobacco: Never Used Drinks/Week oz/Week Comments Alcohol Use No Sex Assigned at Date Recorded Not on file Industry Job Start Date Occupation Not on file Not on file Not on file Travel End Travel History Travel Start No recent travel history available. documented as of this encounter Progress Notes * Barndon Alanis MA - 11/29/2011 12:15 PM CDT Enrolled in Carelink remote monitoring and ordered a remote transmitter. Mailed education handout, enrollment letter and my contact information. DB. * Brandon Alanis MA - 11/29/2011 12:13 PM CDT Keely Cleary - Enroll in Carelink More Detail >> Enroll in Carelink Keely Cleary Sent: MonNovember 25, 2011 2:19 PM To: P Mac Ep Remote Faiza Nation : 1935 Pt Work: Pt Home: Message New implant 10/18/11. In office device check today. Please make sure she is en rolled in [employer] if not already. Thanks documented in this encounter Plan of Treatment Not on filedocumented as of this encounter Visit Diagnoses Not on filedocumented in this encounter
--- OUTSIDE RECORDS SUMMARY | 2018-12-05 14:47 | XMS REPORT | Encounter Summary ---
Author Author [facility] Organization [facility] Address Unknown Phone Unavailable Care Team Providers Care Brazing Furnace Feeder Name Role Phone Dorian Muse MD Unavailable Dagmar Lopes MD PCP Ernesto Sosa MD 100 Melvin Monterroso MD Unavailable Unavailable Dana Birmingham RN Unavailable Unavailable Reason for Visit * Auth/Cert Referred By Contact Referred To Contact Status Reason Specialty Diagnoses / Procedures [facility] [address] [place] [address] Closed Diagnoses hiatal hernia P rocedures CT RPR PARAESOPH HIATAL HERNIA W/LAPT W/O MESH CT LAPT RPR PARAESOPH HIATAL HERNIA W/MESH CT LAP,ESOPHAGOGAST FUNDOPLASTY Encounter Details Care Team Description Date Type Department Leatha Spaulding MD RETIRED Retired January 14 2015 04/30/2013 Hospital [facility] [address] [address] Social History Date Tobacco Use Types Packs/Day [...] mcg tablet by mouth daily. 04/11/2012 05/04/2018 [place]-3 Acid Ethyl Esters Take 1 Cap by [...] Date/Time Associated Diagnosis DEVICE EVALUATION - PPM STAT 04/30/2013 4:55 PM PANEL EDGE SEALER documented in this encounter Results * DEVICE EVALUATION - PPM (04/30/2013 4:55 PM PANEL EDGE SEALER) Generator OTHER OUTSIDE Manual Machinist LAB Other Generator Model REVO MRI [id number] OTHER OUTSIDE # LAB Generator [id number] OTHER OUTSIDE Serial # LAB Generator 10/18/2011 [...] OUTSIDE Indicator LAB Generator Medtronic OTHER OUTSIDE Manual Machinist LAB Generator No OTHER OUTSIDE Investigational LAB Wireless No OTHER OUTSIDE Generator LAB Device Type DDD-PM OTHER OUTSIDE LAB Other Implant OTHER OUTSIDE Info LAB Atrial Lead OTHER OUTSIDE Manual Machinist LAB Other Atrial Lead CAPSUREFIX MRI SURESCAN OTHER OUTSIDE Model # 5086-52 LAB Atrial Lead [id number] OTHER OUTSIDE Serial # LAB Atrial Lead 10/18/2011 OTHER OUTSIDE Implant Date LAB Atrial Lead OTHER OUTSIDE Location Other LAB Atrial Lead OTHER OUTSIDE Polarity Other LAB Atrial Lead 10 OTHER OUTSIDE Diaph. LAB Stimulation Atrial Lead Medtronic OTHER OUTSIDE Manual Machinist LAB Atrial Lead No OTHER OUTSIDE Investigational LAB Atrial Lead active fixation OTHER OUTSIDE Fixation LAB Atrial Lead right atrial appendage OTHER OUTSIDE Location LAB Atrial Lead Pin IS1 OTHER OUTSIDE Connector LAB Atrial Lead Bipolar OTHER OUTSIDE Polarity LAB RV Lead OTHER OUTSIDE Manual Machinist LAB Other RV Lead Model # CAPSUREFIX MRI SURESCAN OTHER OUTSIDE 5086-58 LAB RV Lead Serial [id number] OTHER OUTSIDE # LAB RV Lead Implant 10/18/2011 OTHER OUTSIDE Date LAB RV Lead OTHER OUTSIDE Location Other LAB RV Lead Diaph. 10 OTHER OUTSIDE Stimulation LAB RV Lead Medtronic OTHER OUTSIDE Manual Machinist LAB RV Lead No OTHER OUTSIDE Investigational LAB RV Lead active fixation OTHER OUTSIDE Fixation LAB RV Lead RV low septum OTHER OUTSIDE Location LAB RV Lead Pin IS1 OTHER OUTSIDE Connector ICD LAB RV Lead Coil OTHER OUTSIDE LAB LV Lead OTHER OUTSIDE Manual Machinist LAB Other LV Lead Model # OTHER OUTSIDE LAB LV Lead Serial OTHER OUTSIDE # LAB LV Lead Implant OTHER OUTSIDE Date LAB LV Lead OTHER OUTSIDE Location Other LAB LV Lead OTHER OUTSIDE Polarity Other LAB LV Lead OTHER OUTSIDE Configuration LAB Other LV Lead OTHER OUTSIDE Manual Machinist LAB LV Lead OTHER OUTSIDE Investigational LAB [...] Rhythm LAB -VS% 9.9 OTHER OUTSIDE LAB -BAND SAW OPERATOR CAKE CUTTING% 7.4 OTHER OUTSIDE LAB -VS% 81.3 OTHER OUTSIDE LAB AP-BAND SAW OPERATOR CAKE CUTTING% 1.5 OTHER OUTSIDE LAB Initial Rhythm -VS [...] remote LAB transmission AT/AF Daily OTHER OUTSIDE [place] Hours LAB Average Vent OTHER OUTSIDE Rate during LAB AT/AF #BPM Average Vent OTHER OUTSIDE Rate During LAB AT/AF #Hours Remote No OTHER OUTSIDE Monitoring? LAB Remote Check? OTHER OUTSIDE LAB Daily [place] OTHER OUTSIDE Threshld Alert? LAB Average OTHER [...] forward today's findings to Dr Gruber in [place], [place]. Procedure Note Ernesto Sosa MD - 05/01/2013 8:28 AM PANEL EDGE SEALER [04/30/2013 5:03:01 PM - VIVIANA BARRAGAN] Device [...] forward today's findings to Dr Gruber in [place], [place]. Performing Organization Address City/State/Zipcode Phone Number OTHER OUTSIDE LAB documented in this encounter Visit Diagnoses Not on filedocumented in this encounter
--- OUTSIDE RECORDS SUMMARY | 2018-12-05 14:47 | XMS REPORT | Encounter Summary ---
Author Author [facility] Organization [facility] Address Unknown Phone Unavailable Care Team Providers Care Tin Pot Operator Name Role Phone Dorian Muse MD Unavailable Dagmar Lopes MD PCP Ernesto Sosa MD 100 Melvin Monterroso MD Unavailable Unavailable Dana Birmingham RN Unavailable Unavailable Reason for Visit * Reason Comments Records Request Dr. Karol Gruber (p) [phone] / (f) [phone] Encounter Details Care Team Description Date Type Department Aria Alcantar, RN Records Request (Dr. Karol Gruber (p) [phone] / (f) [phone] ) 04/30/2013 Documentation The [address] [place] [address] Social History Date Tobacco Use Types Packs/Day [...] Progress Notes * Aria Alcantar RN - 04/30/2013 10:49 AM POTATO CHIP MAKER Request for the following medical records for purpose of continuity of care with Dr. Sosa Please send most recent OV note (~04/08/2013), EKG and most recent labs. Please Fax to: [phone] [facility] Dr. Sosa Attention: Alisha Shah RN Thank you, Alisha Alcantar RN [phone] TO CHIP MAKER documented in this encounter Plan of Treatment Not on filedocumented as of this encounter Visit Diagnoses Not on filedocumented in this encounter
--- OUTSIDE RECORDS SUMMARY | 2018-12-05 14:47 | XMS REPORT | Encounter Summary ---
Author Author [facility] Organization [facility] Address Unknown Phone Unavailable Care Team Providers Care Industry Analyst Name Role Phone Dorian Muse MD Unavailable Dagmar Lopes MD PCP Ernesto Sosa MD 100 Melvin Monterroso MD Unavailable Unavailable Reason for Visit * Reason Comments Medication Refill to go through Dr. Gruber's office Encounter Details Care Team Description Date Type Department Aria Alcantar RN Medication Refill (to go through Dr. Gruber's office) 04/08/2013 Documentation The [facility] 4000 [facility] [place] [address] Social History Date Tobacco Use Types Packs/Day [...] Progress Notes * Aria Alcantar, STEVEN - 04/08/2013 11:28 AM CDT Pt f/u is PRN for RAD. Dr. Gruber will continue to follow up with patient. Notified Dr. Gruber's office, they are OK to refill medications. Notified need for Q6 month EKG and labs. Pt has OV today with Dr. Gruber. documented in this encounter Plan of Treatment Not on filedocumented as of this encounter Visit Diagnoses Not on filedocumented in this encounter
--- OUTSIDE RECORDS SUMMARY | 2018-12-05 14:47 | XMS REPORT | Encounter Summary ---
Author Author [facility] Organization [facility] Address Unknown Phone Unavailable Care Team Providers Care Shopper Insights Manager Name Role Phone Dorian Muse MD Unavailable Dagmar Lopes MD PCP Ernesto Sosa MD 100 Reason for Visit * Reason Comments Medication Refill Sotalol refill Encounter Details Care Team Description Date Type Department Aby Dos Santos RN Medication Refill (Sotalol refill) 02/04/2013 Refill The [facility] [address] [facility] [place] [address] Social History Date Tobacco Use Types Packs/Day [...]
--- OUTSIDE RECORDS SUMMARY | 2018-12-05 14:47 | XMS REPORT | Encounter Summary ---
Author Author [facility] Organization [facility] Address Unknown Phone Unavailable Care Team Providers Care Heddler Tier Name Role Phone Dorian Muse MD Unavailable Dagmar Lopes MD PCP Ernesto Sosa MD 100 Melvin Monterroso MD Unavailable Unavailable Encounter Details Care Team Description Date Type Department Daisy Garcia MA Cardiac device in situ, other (Primary Dx) 04/02/2013 Orders Only The [facility] [address] [place] [address] Social History Date Tobacco Use Types Packs/Day [...] of this encounter Visit Diagnoses Diagnosis Cardiac device in situ, other - Primary Other specified cardiac device in situ documented in this encounter
--- OUTSIDE RECORDS SUMMARY | 2018-12-05 14:48 | XMS REPORT | Encounter Summary ---
Author Author [facility] Organization [facility] Address Unknown Phone Unavailable Care Team Providers Care Sr. Payroll Manager Name Role Phone Dorian Muse MD Unavailable Dagmar Lopes MD PCP Ernesto Sosa MD 100 Encounter Details Care Team Description Date Type Department Arrived 11/25/2011 Hospital [facility] [id number] [place] [address] [address] [place], [place] [id number] Social History Date Tobacco Use Types Packs/Day [...] mg by 0 mg tablet mouth daily. 10/28/2011 04/10/2012 amLODIPine (NORVASC) 5 mg Take 1 Tab by 90 Tab 1 tablet mouth daily. 11/25/2011 10/10/2013 aspirin 325 mg tablet Take 1 Tab by 90 Tab 3 mouth daily. 07/08/2013 atenolol (TENORMIN) 50 mg Take 50 mg by 0 tablet mouth twice daily. 06/05/2015 busPIRone (BUSPAR) 10 mg Take 15 mg by 0 tablet mouth twice daily. 03/07/2013 Cholecalciferol (Vitamin Take 1 Tab by 0 D3) (VITAMIN D-3) 2,000 mouth daily. unit Tab 07/08/2013 cyclobenzaprine Take 10 mg by 0 (FLEXERIL) 10 mg tablet mouth Daily. 03/07/2013 levothyroxine (SYNTHROID) Take 100 mcg 0 100 mcg tablet by mouth daily. 04/11/2012 [place]-3 Acid Ethyl Esters Take 1 Cap by 0 (LOVAZA) 1 gram Cap mouth four times daily. 04/30/2013 OMEPRAZOLE (PRILOSEC PO) Take 40 mg by 0 mouth daily. 03/07/2013 sertraline (ZOLOFT) 100 Take 100 mg 0 mg tablet by mouth Daily. 10/21/2011 04/11/2012 sotalol AF (BETAPACE AF) Take 1 Tab by 60 Tab 6 120 mgIndications: mouth twice Paroxysmal atrial daily. fibrillation (HCC), Bradycardia 05/04/2018 traMADol (ULTRAM) 50 mg Take 50 mg by 0 tablet mouth every 6 hours as needed. documented as of this encounter Plan of Treatment Not on filedocumented as of this encounter Procedures Comments Procedure Name Priority Date/Time Associated Diagnosis DEVICE EVALUATION - PPM Routine 11/25/2011 Paroxysmal atrial 1:57 PM CDT fibrillation Bradycardia documented in this encounter Results * DEVICE EVALUATION - PPM (11/25/2011 1:57 PM CDT) Generator OTHER OUTSIDE Magnetic Grinder Operator LAB Other Generator Model REVO MRI RVDR01 OTHER OUTSIDE # LAB Generator [id number] OTHER OUTSIDE Serial # LAB Generator 10/18/2011 [...] Research OTHER OUTSIDE Comments 2 LAB FÉLIX/EOL OTHER OUTSIDE Indicator LAB Generator Medtronic OTHER OUTSIDE Magnetic Grinder Operator LAB Generator No OTHER OUTSIDE Investigational LAB Wireless No OTHER OUTSIDE Generator LAB Device Type DDD-PM OTHER OUTSIDE LAB Other Implant OTHER OUTSIDE Info LAB Atrial Lead OTHER OUTSIDE Magnetic Grinder Operator LAB Other Atrial Lead CAPSUREFIX MRI SURESCAN OTHER OUTSIDE Model # 5086-52 LAB Atrial Lead [id number] OTHER OUTSIDE Serial # LAB Atrial Lead 10/18/2011 OTHER OUTSIDE Implant Date LAB Atrial Lead OTHER OUTSIDE Location Other LAB Atrial Lead OTHER OUTSIDE Polarity Other LAB Atrial Lead 10 OTHER OUTSIDE Diaph. LAB Stimulation Atrial Lead Medtronic OTHER OUTSIDE Magnetic Grinder Operator LAB Atrial Lead No OTHER OUTSIDE Investigational LAB Atrial Lead active fixation OTHER OUTSIDE Fixation LAB Atrial Lead right atrial appendage OTHER OUTSIDE Location LAB Atrial Lead Pin IS1 OTHER OUTSIDE Connector LAB Atrial Lead Bipolar OTHER OUTSIDE Polarity LAB RV Lead OTHER OUTSIDE Magnetic Grinder Operator LAB Other RV Lead Model # CAPSUREFIX MRI SURESCAN OTHER OUTSIDE 5086-58 LAB RV Lead Serial [id number] OTHER OUTSIDE # LAB RV Lead Implant 10/18/2011 OTHER OUTSIDE Date LAB RV Lead OTHER OUTSIDE Location Other LAB RV Lead Diaph. 10 OTHER OUTSIDE Stimulation LAB RV Lead Medtronic OTHER OUTSIDE Magnetic Grinder Operator LAB RV Lead No OTHER OUTSIDE Investigational LAB RV Lead active fixation OTHER OUTSIDE Fixation LAB RV Lead RV low septum OTHER OUTSIDE Location LAB RV Lead Pin IS1 OTHER OUTSIDE Connector ICD LAB RV Lead Coil OTHER OUTSIDE LAB LV Lead OTHER OUTSIDE Magnetic Grinder Operator LAB Other LV Lead Model # OTHER OUTSIDE LAB LV Lead Serial OTHER OUTSIDE # LAB LV Lead Implant OTHER OUTSIDE Date LAB LV Lead OTHER OUTSIDE Location Other LAB LV Lead OTHER OUTSIDE Polarity Other LAB LV Lead OTHER OUTSIDE Configuration LAB Other LV Lead OTHER OUTSIDE Magnetic Grinder Operator LAB LV Lead OTHER OUTSIDE Investigational [...] Mode Switch On OTHER OUTSIDE Status LAB Specimen Narrative Performed At OTHER OUTSIDE LAB [11/25/2011 2:02:31 PM - Keely Cleary w/ Natividad Rebollar RN] - Full dual chamber PPM device check.S/p implant on 10/18/2011.Device function appears normal.37 AT/AF events, longest 97 min.Time in AT/AF 0.2 hr/day (0.8% of the time), A-rates: 60-293 bpm, V-rates well controlled at 60-95 bpm.Available EGM's appear to show brief events AFib.Presenting rhythm NSR at 80 bpm, -VS 42.8%, -FINE ARTS INSTRUCTOR 0.5%, AP-VS 56.1%, AP-FINE ARTS INSTRUCTOR 0.6%. PVC singles 2.1 per hour, runs 0.1 per hour.Pt activity 1.4 hr.day.No permanent programming changes as pt is 1 month out from implant.Will follow up to enroll pt with [facility].Report given to RAD.See attached Paceart report titled HRM data sheets to see full Paceart report./mkm Procedure Note Ernesto Sosa MD - 11/27/2011 11:14 PM CDT [11/25/2011 2:02:31 PM - Keely key/ Natividad Rebollar RN] - Full dual chamber PPM device check. S/p implant on 10/18/2011. Device function appears normal. 37 AT/AF events, longest 97 min. Time in AT/AF 0.2 hr/day (0.8% of the time), A- rates: 60-293 bpm, V-rates well controlled at 60-95 bpm. Available EGM's appear to show brief events AFib. Presenting rhythm NSR at 80 bpm, -VS 42.8%, -FINE ARTS INSTRUCTOR 0.5%, AP-VS 56.1%, AP-FINE ARTS INSTRUCTOR 0.6%. PVC singles 2.1 per hour, runs 0.1 per hour. Pt activity 1.4 hr.day. No permanent programming changes as pt is 1 month out from implant. Will follow up to enroll pt with [facility]. Report given to RAD. See attached Paceart report titled HRM data sheets to see full Paceart report./mkm Performing Organization Address City/State/Zipcode Phone Number OTHER OUTSIDE LAB documented in this encounter Visit Diagnoses Diagnosis Paroxysmal atrial fibrillation (HCC) Atrial fibrillation Bradycardia Other specified cardiac dysrhythmias documented in this encounter
--- OUTSIDE RECORDS SUMMARY | 2018-12-05 14:48 | XMS REPORT | Encounter Summary ---
Author Author [facility] Organization [facility] Address Unknown Phone Unavailable Care Team Providers Care Salesperson New Cars Name Role Phone Dorian Muse MD Unavailable Dagmar Lopes MD PCP Ernesto Sosa MD 100 Reason for Referral * Consult, Test & Treat Referred By Contact Referred To Contact Status Reason Specialty Diagnoses / Procedures [facility] [address] [address] Closed Specialty Services Home Health Diagnoses Required Services Paroxysmal atrial fibrillation (HCC) Bradycardia Hyperlipidemia Encounter Details Care Team Description Date Type Department Zara Lance RN Paroxysmal atrial fibrillation; Bradycardia; Hyperlipidemia 10/28/2011 Orders Only The [facility] 4000 [facility] [place] [address] Social History Date Tobacco Use Types Packs/Day [...] Atrial fibrillation Bradycardia Other specified cardiac dysrhythmias Hyperlipidemia Other and unspecified hyperlipidemia documented in this encounter
--- OUTSIDE RECORDS SUMMARY | 2018-12-05 14:48 | XMS REPORT | Encounter Summary ---
Author Author [facility] Organization [facility] Address Unknown Phone Unavailable Care Team Providers Care Jet Handler Name Role Phone Dorian Muse MD Unavailable Dagmar Lopes MD PCP Ernesto Sosa MD 100 Encounter Details Care Team Description Date Type Department Ernesto Sosa MD 4000 [facility] [place] [address] Atrial fibrillation (HCC) 11/25/2011 [facility] Cardiology Encounter [address] [place] [address] Social History Date Tobacco Use [...] 90 Tab 1 tablet mouth daily. 07/08/2013 atenolol (TENORMIN) 50 mg [...] 100 mcg tablet by mouth daily. 04/11/2012 [place]-3 Acid Ethyl Esters Take 1 Cap by [...]
--- OUTSIDE RECORDS SUMMARY | 2018-12-05 14:48 | XMS REPORT | Encounter Summary ---
Author Author [facility] Organization [facility] Address Unknown Phone Unavailable Care Team Providers Care Colorist Photography Name Role Phone Dorian Muse MD Unavailable Dagmar Lopes MD PCP Ernesto Sosa MD 100 Reason for Visit * Reason Comments Event Monitor Questions Electrode irritation Encounter Details Care Team Description Date Type Department Rekha Donahue RN Event Monitor Questions (Electrode irritation) 11/18/[address] [facility] [address] [place] [address] Social History Date Tobacco Use Types Packs/Day [...] encounter Miscellaneous Notes * Telephone Encounter - Rekha Donahue RN - 11/18/2011 8:27 AM CDT Message copied by REKHA DONAHUE on MonNov 18, 2011 8:27 AM Left message on Rachelle's personal voice mail with instructions for patient to try an OTC steroid cream to these sites. Rachelle instructed to notify office if there are any signs of infection. ------ Message from: PAIGE MCMULLEN Created: MonNovember 17, 2011 4:49 PM Rachelle w/ home health, calling regarding pt having loop recorder removed & is now having redness at the site. She's not having any; drainage, but is having pains there at night. Ext [phone]. thanks documented in this encounter Plan of Treatment Not on filedocumented as of this encounter Visit Diagnoses Not on filedocumented in this encounter
--- OUTSIDE RECORDS SUMMARY | 2018-12-05 14:48 | XMS REPORT | Encounter Summary ---
Author Author [facility] Organization [facility] Address Unknown Phone Unavailable Care Team Providers Care Track Production Engineer Name Role Phone Dorian Muse MD Unavailable Dagmar Lopes MD PCP Ernesto Sosa MD 100 Reason for Visit * Reason Comments Atrial fibrillation follow up Encounter Details Care Team Description Date Type Department Ernesto Sosa MD 4000 [facility]600 [place], [place] [id number] Atrial fibrillation (follow up) 11/25/2011 Office Visit The [facility] [address] [place], [place] [address] Social History Date Tobacco Use Types Packs/Day [...] Signs Reading Time Taken Comments Vital Sign 110/80 11/25/2011 1:40 PM CDT Blood Pressure 72 11/25/2011 1:39 PM CDT Pulse - - Temperature - - Respiratory Rate - - Oxygen Saturation - - Inhaled Oxygen Concentration 97.2 kg (214 lb 3.2 oz) 11/25/2011 1:39 PM CDT Weight 167.6 cm (5' 6") 11/25/2011 1:39 PM CDT Height 34.57 11/25/2011 1:39 PM CDT Body Mass Index documented in this encounter Progress Notes * Ernesto Sosa MD - 11/25/2011 1:50 PM CDT Faiza Nation is a 76 y.o. female. HPI I had the pleasure of seeing Ms. Faiza Nation in our office today for a cardiac electrophysiology followup visit regarding a history of atrial fibrillation and sinus node dysfunction in response to a request from her primary roll tender, Dr. Karol Gruber. As you recall, Dr. Gruber, Ms. Nation is an extremely pleasant 76-year-old woman with a history of hypertension, hypothyroidism, hyperlipidemia, dementia, and p aroxysmal atrial fibrillation who had frequent pauses which were symptomatic wit hout even initiating any medicine for atrial fibrillation. Therefore, we recomm ended a dual-chamber pacemaker which would allow us for better rate and rhythm c ontrol. She successfully underwent pacemaker implantation on October 18, 2011, and t hen sotalol was initiated and patient was monitored for 5 doses without any evid ence of intolerance. She was also initiated on the anticoagulation therapy, Xar elto, and I think it was either never initiated or was discontinued because of r isk of syncope or falls. Ms. Nation comes today with no significant complaints, definitely decreased pal pitations and no further evidence of near-syncope. She is overall satisfied wit h her current management. (DOC:[id number]) Filed Vitals: 11/25/11 1339 11/25/11 1340 BP: 108/70 110/80 Pulse: 72 Height: 1.676 m (5' 6") Weight: 97.16 kg (214 lb 3.2 oz) Body mass index is 34.57 kg/(m^2). Past Medical History Patient Active Problem List Diagnoses Date Noted Bradycardia 10/18/2011 10-18-11 Medtronic dual chamber PPM implanted by Dr. Sheila Saldivar. Sotalol initiation 10-18-11 Hypertension Hyperlipidemia 09/14/2011 Lipid Profile: Cholesterol: 171, Triglyceride: 132, HDL: 39, LDL: 10 6 Paroxysmal atrial fibrillation Hx of brief AF, CHADS score 2, ASA Hypothyroidism Dementia Anxiety Near syncope 09/16/2011 09/14/11 hospital admission to [facility] in [place], [place]. Reveal device 952 9 implanted by Allyn Petit MD. Cardiac device in situ, other 08/18/2011 09/16/11 Reveal device 9529, Medtronic. Review of Systems Constitution: Positive for weakness. HENT: Positive for tinnitus. Eyes: Positive for left vision loss. Cardiovascular: Positive for dyspnea on exertion and palpitations. Respiratory: Positive for shortness of breath. Musculoskeletal: Positive for arthritis and back pain. All other systems reviewed and are negative. Physical Exam Patient is a moderately well-built woman who is comfortable at rest, not in any distress. Sclerae anicteric. The oral mucosa is moist and pink. Ne ck is supple without any lymphadenopathy. Lungs are clear to auscultation bilaterally . Breath sounds are normal. Cardiac exam reveals normal S1, S2 with regular rate and rhythm. No murmurs, rubs or gallops noted. Abdomen: Soft, nontender, nondiste nded. Bowel sounds are present. Extremities: No cyanosis, clubbing or edema. Periph eral pulses are symmetric. Skin without any rash. Cardiovascular Studies Assessment and Plan I reviewed her 12-lead EKG which confirms she is in sinus rhythm, rate 72, OK 27 6, QRS 85, QTc 442 msec. Her pacemaker interrogation reveals she has a Medtronic Revo MRI-compatible pace maker which is functioning appropriately. Since she is not on anticoagulation, I recommended at least switching her aspiri n from 81 mg to 325 mg. She should continue her sotalol at the current dose of 120 b.i.d. I will see her as-needed in the future since the family requests to follow local ly as much as possible. I think this is certainly reasonable. She is to see Dr Felix Gruber in approximately 1-2 months to establish care of her device management a nd then will be seen every 6 months or as-needed. I will be happy to see her in the future for any further questions. Please feel free to contact us with bettye stone. (DOC:[id number]) Current Medications (including today's revisions) aspirin 325 mg tablet Take 1 Tab by mouth daily. amLODIPine (NORVASC) 5 mg tablet Take 1 Tab by mouth daily. sotalol AF (BETAPACE AF) 120 mg Take 1 Tab by mouth twice daily. traMADol (ULTRAM) 50 [...] tablet Take 15 mg by mouth daily. [place]-3 Acid Ethyl Esters (LOVAZA) 1 gram Cap Take 1 Cap by mouth four times daily. sertraline (ZOLOFT) 100 mg tablet Take [...] tablet Take 100 mg by mouth Daily. documented in this encounter Plan of Treatment Order Schedule Name Type Priority Associated Diagnoses Ordered: 11/25/2011 ECG 12-LEAD ECG Routine Paroxysmal atrial fibrillation documented as of this encounter Procedures Comments Procedure Name Priority Date/Time Associated Diagnosis ECG/QRS Routine 11/25/2011 1:40 PM CDT documented in this encounter Results * ECG/QRS (11/25/2011 1:40 PM CDT) QRS DURATION 85 OTHER OUTSIDE LAB Performing Organization Address City/State/Zipcode Phone Number OTHER OUTSIDE LAB documented in this encounter Visit Diagnoses Diagnosis Near syncope Syncope and collapse Hypertension Unspecified essential hypertension Hyperlipidemia Other and unspecified hyperlipidemia Paroxysmal atrial fibrillation (HCC) Atrial fibrillation Bradycardia Other specified cardiac dysrhythmias Cardiac device in situ, other Other specified cardiac device in situ documented in this encounter
--- OUTSIDE RECORDS SUMMARY | 2018-12-05 14:48 | XMS REPORT | Encounter Summary ---
Author Author [facility] Organization [facility] Address Unknown Phone Unavailable Care Team Providers Care Transport Aircrewman Name Role Phone Dorian Muse MD Unavailable Dagmar Lopes MD PCP Ernesto Sosa MD 100 Reason for Visit * Reason Comments Community Referral Faxed home health referral orders to [facility] Encounter Details Care Team Description Date Type Department Zara Lance RN Community Referral (Faxed home health referral orders to [facility] ) 10/28/2011 Documentation The [address] [address] Social History Date Tobacco Use Types Packs/Day Years Used Never Smoker Smokeless Tobacco: Never Used Drinks/Week oz/Week Comments Alcohol Use No Sex Assigned at Date Recorded Not on file Industry Job Start Date Occupation Not on file Not on file Not on file Travel End Travel History Travel Start No recent travel history available. documented as of this encounter Progress Notes * Zara Lance RN - 10/28/2011 11:46 AM CDT Faxed home health referral orders to [facility] documented in this encounter Plan of Treatment Not on filedocumented as of this encounter Visit Diagnoses Not on filedocumented in this encounter
--- OUTSIDE RECORDS SUMMARY | 2018-12-05 14:49 | XMS REPORT | Encounter Summary ---
Author Author [facility] Organization [facility] Address Unknown Phone Unavailable Care Team Providers Care Completion Manager Name Role Phone Dorian Muse MD Unavailable Dagmar Lopes MD PCP Encounter Details Care Team Description Date Type Department Chuck Gil MD [address] [place] [address] Syncope and collapse 10/26/2011 [facility] [address] [facility] [place] [address] Social History Date Tobacco Use Types Packs/Day [...] mg by 0 mg tablet mouth daily. 11/25/2011 amlodipine (NORVASC) 5 mg Take 5 mg by 0 tablet mouth daily. 11/25/2011 aspirin EC 81 mg tablet Take 81 mg by 0 mouth daily. 07/08/2013 atenolol (TENORMIN) 50 mg [...] 100 mcg tablet by mouth daily. 04/11/2012 [place]-3 Acid Ethyl Esters Take 1 Cap by [...] Comments Procedure Name Priority Date/Time Associated Diagnosis ECG 12-LEAD Routine 10/27/2011 Near syncope 1:47 PM CDT Hypertension documented in this encounter Visit Diagnoses Diagnosis Near syncope Syncope and collapse Hypertension Unspecified essential hypertension documented in this encounter
--- OUTSIDE RECORDS SUMMARY | 2018-12-05 14:49 | XMS REPORT | Encounter Summary ---
Author Author [facility] Organization [facility] Address Unknown Phone Unavailable Care Team Providers Care Crm Marketing Specialist Name Role Phone Dorian Muse MD Unavailable Dagmar Lopes MD PCP Encounter Details Care Team Description Date Type Department Arrived 10/26/2011 Hospital [facility] [id number] [place] [address] Social History Date Tobacco Use Types Packs/Day [...] 100 mcg tablet by mouth daily. 04/11/2012 [place]-3 Acid Ethyl Esters Take 1 Cap by [...]
--- OUTSIDE RECORDS SUMMARY | 2018-12-05 14:49 | XMS REPORT | Encounter Summary ---
Author Author [facility] Organization [facility] Address Unknown Phone Unavailable Care Team Providers Care Projector Operator Name Role Phone Dorian Muse MD Unavailable Dagmar Lopes MD PCP Ernesto Sosa MD 100 Reason for Referral * Referred By Contact Referred To Contact Status Reason [facility]ty Diagnoses / [facility] [address] [facility] [place] [address] Closed Procedures ECG/QRS Reason for Visit * Reason Comments Dizziness near syncope, numbness in right hand Encounter Details Care Team Description Date Type Department Chuck Gil MD [address] [facility] [address] [place] [id number] Dizziness (near syncope, numbness in right hand) 10/26/2011 Office Visit [facility] [address] [facility] [place] [address] Social History Date Tobacco Use Types Packs/Day [...] Signs Reading Time Taken Comments Vital Sign 148/86 10/26/2011 3:31 PM CDT Blood Pressure 65 10/26/2011 3:31 PM CDT Pulse - - Temperature - - Respiratory Rate - - Oxygen Saturation - - Inhaled Oxygen Concentration 98.3 kg (216 lb 12.8 oz) 10/26/2011 3:31 PM CDT Weight 167.6 cm (5' 6") 10/26/2011 3:31 PM CDT Height 34.99 10/26/2011 3:31 PM CDT Body Mass Index documented in this encounter Progress Notes * Chuck Gil - 10/26/2011 3:32 PM CDT Faiza Nation is a 76 y.o. female. HPI Ms. Nation came in today to see us unscheduled. She has been a difficult case. She is a 76-year-old female with history of paroxysmal atrial fibrillation and near-syncope. She had a Reveal monitor placed which did demonstrate episodes of atrial fibrillation and a looping monitor as well. It was noted that she had episodes of paroxysmal atrial fibrillation as well as bradycardia. She was admi tted and received a dual-chamber pacemaker and placed on sotalol, rivaroxaban as well as atenolol 50 mg p.o. daily and her usual medication. Unfortunately, she has noted no significant improvement since going home. She c ontinues to feel lightheaded and dizzy. She is a poor historian and she has not been with her family members but apparently she has episodes when getting up out of bed or going from a chair in addition to some episodes while sitting. I ch ecked her blood pressure today and lying down it was 146/86, however, she droppe d to 110 on standing. I also checked her pacemaker and it demonstrated that she does have paroxysmal atrial fibrillation, however, her rates were fairly well-c ontrolled under 120. The episodes which she had lasted 29 seconds to 1 hour and 19 minutes. An additional problem with Ms. Nation is that she is rather unsteady on her fee t. I had her walk around the office and she clearly was having some difficultie s. Her EKG today reveals normal sinus rhythm and is with first degree AV block and currently is not paced. She tells me she is tolerating her sotalol. She has denied any chest pressure, chest tightness or squeezing and has had no overt syncope. Evaluation for ische shannon has been negative. ([id number]) Filed Vitals: 10/26/11 1531 BP: 148/86 Pulse: 65 Height: 1.676 m (5' 6") Weight: 98.34 kg (216 lb 12.8 oz) Body mass index is 34.99 kg/(m^2). Past Medical History Patient Active Problem List Diagnoses Date Noted Bradycardia 10/18/2011 10-18-11 Medtronic dual chamber PPM implanted by Dr. Sheila Saldivar. Sotalol initiation 10-18-11 Hypertension Hyperlipidemia 09/14/2011 Lipid Profile: Cholesterol: 171, Triglyceride: 132, HDL: 39, LDL: 10 6 Paroxysmal atrial fibrillation Hx of brief AF, CHADS score 2, ASA Hypothyroidism Dementia Anxiety Near syncope 09/16/2011 09/14/11 hospital admission to [facility] in [place], [place]. Reveal device [id number] implanted by Allyn Petit MD. Cardiac device in situ, other 08/18/2011 09/16/11 Reveal device 9529, Medtronic. Review of Systems Constitution: Positive for chills, decreased appetite, diaphoresis and malaise/f atigue. HENT: Positive for ear pain, headaches, stridor and tinnitus. Eyes: Positive for pain, photophobia and left vision loss. Cardiovascular: Positive for claudication, dyspnea on exertion, irregular heartb eat, leg swelling and palpitations. Respiratory: Positive for shortness of breath and wheezing. Hematologic/Lymphatic: Bruises/bleeds easily. Skin: Positive for dry skin. Musculoskeletal: Positive for arthritis, back pain, joint pain, joint swelling, muscle weakness, myalgias and stiffness. Gastrointestinal: Positive for change in bowel habit, bowel incontinence, diarrh ea, flatus, heartburn and hemorrhoids. Genitourinary: Positive for urgency. Neurological: Positive for excessive daytime sleepiness, dizziness, light-headed ness, paresthesias and vertigo. Psychiatric/Behavioral: Positive for memory loss. The patient has insomnia and i s nervous/anxious. All other systems reviewed and are negative. Physical Exam General Appearance: obese, drop in systolic pressure >30 mm with standing Skin: warm, moist, no ulcers or xanthomas Digits and Nails: normal color, smooth symmetric nails and digits Eyes: conjunctivae and lids normal, pupils are equal and round Teeth/Gums/Palate: dentition and gums normal, no lesions Lips & Oral Mucosa: no pallor or cyanosis Neck Veins: neck veins are flat, neck veins are not distended Thyroid: no nodules, masses, tenderness or enlargement Chest Inspection: chest is normal in appearance Auscultation/Percussion: lungs clear to auscultation, no rales or rhonchi, no wh eezing Cardiac Rhythm: regular rhythm and normal rate Cardiac Auscultation: S1, S2 normal Carotid Arteries: normal carotid upstroke bilaterally, no bruit Radial Arteries: normal symmetric radial pulses Abdominal Aorta: no abdominal aortic bruit Femoral Arteries: normal symmetric femoral pulses, no bruits Pedal Pulses:dorsalis pedis and posterior pulses palpable Lower Extremity Edema: no lower extremity edema Abdominal Exam: soft, non-tender, no masses, no hepatosplenomegaly Orientation: oriented to time, place and person Affect & Mood: appropriate and sustained affect Language and Memory: patient responsive and seems to comprehend information Neuro: grossly intact Other: moves all extremities Assessment and Plan I believe Ms Nation's symptoms are likely multifactorial. My first concern is that she does have evidence of orthostatic hypotension, and I decreased her Norv asc from 10 mg to 5 mg p.o. I feel mild hypertension is likely better than sign ificant drops in blood pressure with symptoms. An additional problem is that I believe she is a significant fall risk. She cur rently uses a cane, but they have a walker at home as well. As her episodes hav e been predominantly very brief, the longest episode of 1 hour and 19 minutes, I believe that the risk of continuing on rivaroxaban is significant and recommend that she switch to aspirin 1 tablet p.o. daily. Although she does have a CHADS score of 2, she has no prolonged episodes, and if her stability does not improv e, I think this may be a significant risk for her. She understands alternativel y there is always a risk of embolic events. She will be seeing Dr. Sosa again in the future who can reassess this decision and also evaluate to see if her atr ial fibrillation episodes become more frequent. She is currently on Betapace. Hopefully this will keep her episodes at a minimum. Her daughter, who is not wi th her today, does watch her during the day and will be with her to discuss for us when she comes in in followup. (DOC:[id number]) Current Medications (including today's revisions) sotalol AF (BETAPACE AF) 120 mg Take 1 Tab by mouth twice daily. traMADol (ULTRAM) 50 mg tablet Take 50 mg by mouth every 6 hours as needed. aspirin EC 81 mg tablet Take 81 mg by mouth daily. busPIRone (BUSPAR) 10 mg tablet Take 15 mg by mouth twice daily. Cholecalciferol (Vitamin D3) (VITAMIN D-3) 2,000 unit Tab Take 1 Tab by mout h daily. levothyroxine (SYNTHROID) 100 mcg tablet Take 100 mcg by mouth daily. meloxicam(+) (MOBIC) 15 mg tablet Take 15 mg by mouth daily. [place]-3 Acid Ethyl Esters (LOVAZA) 1 gram Cap Take 1 Cap by mouth four times daily. amlodipine (NORVASC) 5 mg tablet Take 5 mg by mouth daily. sertraline (ZOLOFT) 100 [...] Name Priority Date/Time Associated Diagnosis ECG/QRS Routine 10/26/2011 3:40 PM CDT documented in this encounter Results * DEVICE EVALUATION - PPM (10/28/2011 11:11 AM CDT) Generator OTHER OUTSIDE [facility] Other Generator Model REVO MRI [id number] OTHER OUTSIDE # LAB Generator [id number] OTHER OUTSIDE Serial # LAB Generator 10/18/2011 [...] OUTSIDE Indicator LAB Generator Medtronic OTHER OUTSIDE [facility] Generator No OTHER OUTSIDE Investigational LAB Wireless No OTHER OUTSIDE Generator LAB Device Type DDD-PM OTHER OUTSIDE LAB Other Implant OTHER OUTSIDE Info LAB Atrial Lead OTHER OUTSIDE [facility] Other Atrial Lead CAPSUREFIX MRI SURESCAN OTHER OUTSIDE Model # 5086-52 LAB Atrial Lead [id number] OTHER OUTSIDE Serial # LAB Atrial Lead 10/18/2011 OTHER OUTSIDE Implant Date LAB Atrial Lead OTHER OUTSIDE Location Other LAB Atrial Lead OTHER OUTSIDE Polarity Other LAB Atrial Lead 10 OTHER OUTSIDE [facility]. LAB Stimulation Atrial Lead Medtronic OTHER OUTSIDE [facility] Atrial Lead No OTHER OUTSIDE Investigational LAB Atrial Lead active fixation OTHER OUTSIDE Fixation LAB Atrial Lead right atrial appendage OTHER OUTSIDE Location LAB Atrial Lead Pin IS1 OTHER OUTSIDE Connector LAB Atrial Lead Bipolar OTHER OUTSIDE Polarity LAB RV Lead OTHER OUTSIDE [facility] Other RV Lead Model # CAPSUREFIX MRI SURESCAN OTHER OUTSIDE 5086-58 LAB RV Lead Serial [id number] OTHER OUTSIDE # LAB RV Lead Implant 10/18/2011 OTHER OUTSIDE Date LAB RV Lead OTHER OUTSIDE Location Other LAB RV Lead Diaph. 10 OTHER OUTSIDE Stimulation LAB RV Lead Medtronic OTHER OUTSIDE [facility] RV Lead No OTHER OUTSIDE Investigational LAB RV Lead active fixation OTHER OUTSIDE Fixation LAB RV Lead RV low septum OTHER OUTSIDE Location LAB RV Lead Pin IS1 OTHER OUTSIDE Connector ICD LAB RV Lead Coil OTHER OUTSIDE LAB LV Lead OTHER OUTSIDE [facility] Other LV Lead Model # OTHER OUTSIDE LAB LV Lead Serial OTHER OUTSIDE # LAB LV Lead Implant OTHER OUTSIDE Date LAB LV Lead OTHER OUTSIDE Location Other LAB LV Lead OTHER OUTSIDE Polarity Other LAB LV Lead OTHER OUTSIDE Configuration LAB Other LV Lead OTHER OUTSIDE [facility] LV Lead OTHER OUTSIDE Investigational LAB [...] Specimen Narrative Performed At OTHER OUTSIDE LAB See scanned Implantable Device Flowsheet.Checked by Aren Estrada, in clinic with Dr. Gil done on 10/26/11 w/ data entry coordinator only today. Pt with recent PPM implant complaining of near syncope and dizziness, unsteadiness brought in for PPM eval.Device function appears normal.32 AT/AF events noted for 2.8%.These ranged from 5/5-5/7 29 secs to 1.5 hrs.No permanent programming changes made this session. We will enroll her in [facility]. See attached Paceart report titled HRM data sheets to see full Paceart report. Procedure Note Chuck Gil - 10/30/2011 8:52 AM CDT See scanned Implantable Device Flowsheet. Checked by MedAren harper, in clinic with Dr. Gil done on 10/26/11 w/ data entry coordinator only today. Pt with recent PPM implant complaining of near syncope and dizziness, unsteadiness brought in for PPM eval. Device function appears normal. 32 AT/AF events noted for 2.8%. These ranged from 5/5-5/7 29 secs to 1.5 hrs. No permanent programming changes made this session. We will enroll her in [facility]. See attached Paceart report titled HRM data sheets to see full Paceart report. Performing Organization Address City/State/Zipcode Phone Number OTHER OUTSIDE LAB * ECG/QRS (10/26/2011 3:40 PM CDT) QRS DURATION 96 OTHER OUTSIDE LAB Performing Organization Address City/State/Zipcode Phone Number OTHER OUTSIDE LAB documented in this encounter Visit Diagnoses Diagnosis Near syncope Syncope and collapse Hypertension Unspecified essential hypertension Hyperlipidemia Other and unspecified hyperlipidemia Paroxysmal atrial fibrillation (HCC) Atrial fibrillation documented in this encounter
--- OUTSIDE RECORDS SUMMARY | 2018-12-05 14:49 | XMS REPORT | Encounter Summary ---
Author Author [facility] Organization [facility] Address Unknown Phone Unavailable Care Team Providers Care Meat Smoker Name Role Phone Dorian Muse MD Unavailable Dagmar Lopes MD PCP Reason for Visit * Reason Comments Dizziness Numbness in right hand and legs/feet. Encounter Details Care Team Description Date Type Department Rekha Vuong LPN Dizziness (Numbness in right hand and legs/feet.) 10/26/2011 Telephone The [facility] [address] [facility] [place] [address] Social History Date Tobacco Use Types Packs/Day [...] Miscellaneous Notes * Telephone Encounter - Rekha Vuong LPN - 10/26/2011 10:58 AM CDT Called daughter Dipika, and she got patient on cell phone. Patient stated that hugh timmons is dizzy when she sits up in bed and feels like she is going side to side. Sta keith that her right hand, both legs and feet were tingling and felt numb, but monik t away. Daughter wanted to know if she needs to be seen or is it from her medica tion? Patient takes all her am medications with breakfast, pm medications with s upper. Daughter also needs home health to come in with bathing for now. She woul d like us to contact [facility] at [phone]. Patient is staying a [facility] house. Instructed daughter that we would check with doctor and call her back today at [phone]. * Telephone Encounter - Rekha Vuong LPN - 10/26/2011 10:58 AM CDT Message copied by REKHA VUONG on MonOctober 26, 2011 10:58 AM ------ Message from: JAMES GUSMAN Created: MonOctober 26, 2011 8:08 AM We have no EP nurse today - pts daughter Dipika called, pt had pacemaker ins talled, went to bed dizzy and states she is still dizzy this morning, pls call [phone] documented in this encounter Plan of Treatment Not on filedocumented as of this encounter Visit Diagnoses Not on filedocumented in this encounter
--- OUTSIDE RECORDS SUMMARY | 2018-12-05 14:50 | XMS REPORT | Encounter Summary ---
Author Author [facility] Organization [facility] Address Unknown Phone Unavailable Care Team Providers Care Stand Up Comedian Name Role Phone Dorian Muse MD Unavailable Dagmar Lopes MD PCP Reason for Visit * Auth/Cert Referred By Contact Referred To Contact Status Reason Specialty Diagnoses / Procedures Hc [address] [place] [address] Diagnoses ATRIAL FIBRILLATION P rocedures INSERT PERMANENT PM AND ATRIAL AND VENTRICULAR LEADS Encounter Details Care Team Description Date Type Department Ernesto Sosa MD [address] [facility] [place] [address] [phone] Bradycardia 10/18/2011 [facility] [address] 10/21/2011 [address] [place], [place] [id number] Social History Date Tobacco Use Types Packs/Day [...] Signs Reading Time Taken Comments Vital Sign 128/73 10/21/2011 10:51 AM CDT Blood Pressure 79 10/21/2011 10:51 AM CDT Pulse 37.1 C (98.8 F) 10/21/2011 10:51 AM CDT Temperature - - Respiratory Rate 96% 10/21/2011 10:51 AM CDT Oxygen Saturation - - Inhaled Oxygen Concentration 96.2 kg (212 lb) 10/20/2011 7:38 AM CDT per patient, 212lb. bed is not working, it says 87lb. Weight 170.7 cm (5' 7.2") 10/19/2011 3:00 PM CDT Height 33.01 10/19/2011 3:00 PM CDT Body Mass Index documented in this encounter Discharge Summaries * Andree Ibrahim - 10/21/2011 8:46 AM CDT Physician Discharge Summary Name: Faiza Nation Date Of : 1935 Age: 76 years Admit date: 10/18/2011 Discharge date: 10/21/2011 Attending Physician: Dr. Sosa Service: Med-Cardiovasc Physician Summary completed by: JOSHUA Meyers Reason for hospitalization: Atrial Fibrillation Significant PMH: Past Medical History Diagnosis Date Hypertension Hyperlipidemia Paroxysmal atrial fibrillation Hypothyroidism Dementia Anxiety Palpitations Lower GI bleeding Cardiac device in situ, other Reveal device , Medtronic. Near syncope 09-16-2011 hospital admission Chest pain 09-16-2011 Stress test showed no ischemia Allergies: Codeine and Morphine Brief Hospital Course: The patient is a 76 year old female with history of hype rtension, hypothyroidism, hyperlipidemia and dementia with paroxysmal atrial fib rillation and pauses associated with near syncope. She was admitted and underwen t dual chamber permanent pacemaker implantation. Stable pacing and sensing thre sholds were demonstrated. The existing implantable looping event recorder was e xplanted. Sotalol was initiated and patient was monitored for 5 doses with no e vidence of proarrhythmia or drug intolerance. Mr Nation will begin Xarelto beg inning Monday. Condition at Discharge: Stable Discharge Diagnoses: Principal Problem: *Bradycardia Active Problems: Paroxysmal atrial fibrillation Surgical Procedures: Pacemaker implantation Significant Diagnostic Studies and Procedures: none Consults: None Patient Disposition: Home Patient instructions/medications: 2g Sodium Diet Limit to 2 grams of sodium Low Fat/Low Cholesterol Diet Who to Contact: You may have questions about your hospital stay after you get home. If so, please call the hospital at [phone] and ask the longwall shearer operator to transfer you to the office of your discharge attending physician, or to page the doctor calendar control clerk blood bank (after 4:30 PM or on weekends or holidays). Discharging attending physician: ERNESTO SOSA [[id number]] May resume normal activity in: Do not raise your elbow higher than shoulder level on the affected side for the first 4 weeks. It is important to continue to move shoulder joint gently each da y to prevent stiffening or freezing of the joint. Remember, If you don t move it, you lose it! You can typically resume driving 3-5 days after surgery. There may be special co nsiderations if you passed out before your device was implanted. If you are an active sleeper, you should use your sling at night for the first w [place]. No strenuous activity with the affected arm for 4 weeks, ex. tennis, golfing, sw imming, bowling, mowing the lawn, and shoveling snow. No heavy lifting (greater than 15-20 pounds) for one month with the affected arm . Avoid any activity/exercise which involves rough contact with device site or huey ht cause a heavy blow to the skin over the device. Do not mow lawn (push or riding mower) for 4 weeks. You should be able to resume your normal routine after the first week, however c ontinue to follow the activity restrictions listed above (ex. no vacuuming with affected arm). Avoid extreme fatigue. You may participate in sexual activity unless instructed otherwise. Avoid placin g all your weight on arms until the incision is fully healed (4 weeks). You may return to work within 3-5 days unless instructed otherwise. This will va ry with your occupation, age, and your overall physical condition. Bathing Instructions Keep your incision clean and dry for 5 days after your procedure. Take sponge ba ths working around the incision during this time. May shower 5 days following procedure, however avoid direct water contact to the incision (allow the water to hit back of your shoulder rather than directly on incision). Do not submerge incision in tub, pool, hot tub, or hu for 4 weeks. Unless your incision is bleeding or draining, keep incision open to air. Avoid applying deodorants, powders, creams, lotions, etc. to your incision for 4 weeks. Usually there are no stitches to be removed. Steri-strips will begin to fall off in 10-14 days (strips of tape). If they remain after 2 weeks, gently remove the m when they are damp after a shower Your incision should gradually look better each day. If you notice unusual swell ing, redness, drainage, have increasing pain at the site, or have a fever greate r than 100 degrees, notify us immediately. Reportable Signs and Symptoms See pacemaker discharge instructions Lightheadedness, fainting/near fainting, shortness of breath, chest pain. Call for: Fever Return Appointment Dr. Sosa in one month Cardiology office will call with appointment Outside Provider Incision check with primary doctor in one week, please call for appointment DEVICE EVALUATION - PPM Standing Status: Future Standing Exp. Date: 10/17/12 Scheduling Attention: Route to Scheduling Location of Appointment [facility] / Mon-Mon REQUEST FOR CARDIOLOGY APPOINTMENT Standing Status: Future Standing Exp. Date: 10/17/12 Scheduling Attention: Route to Scheduling Schedule OV with (1st choice Provider) Ernesto Sosa M.D. Location of Appointment [facility] / Mon-Mon Current Discharge Medication List START taking these medications Details sotalol AF (BETAPACE AF) 120 mg Take 1 Tab by mouth twice daily. Qty: 60 Tab, Refills: 6 Associated Diagnoses: Paroxysmal atrial fibrillation; Bradycardia CONTINUE these medications which have been CHANGED or REFILLED Details rivaroxaban (XARELTO) 20 mg Tab tablet Take 1 Tab by mouth daily with dinner. Qty: 30 Tab, Refills: 6 Associated Diagnoses: Paroxysmal atrial fibrillation; Bradycardia CONTINUE these medications which have NOT CHANGED Details traMADol (ULTRAM) 50 mg tablet Take 50 mg by mouth every 6 hours as needed. aspirin EC 81 mg tablet Take 81 mg by mouth daily. busPIRone (BUSPAR) 10 mg tablet Take 15 mg by mouth twice daily. Cholecalciferol (Vitamin D3) (VITAMIN D-3) 2,000 unit Tab Take 1 Tab by mouth da rancho. levothyroxine (SYNTHROID) 100 mcg tablet Take 100 mcg by mouth daily. meloxicam(+) (MOBIC) 15 mg tablet Take 15 mg by mouth daily. [place]-3 Acid Ethyl Esters (LOVAZA) 1 gram Cap Take 1 Cap by mouth four times john ly. amlodipine (NORVASC) 5 mg tablet Take 10 mg by mouth daily. sertraline (ZOLOFT) 100 [...] tablet Take 100 mg by mouth Daily. Signed: JOSHUA Meyers 10/21/2011 cc: Primary Care Physician: Dagmar Lopes MD Verified Referring physicians: CURT GRUBER Additional provider(s): documented in this encounter Medications at Time [...] 100 mcg tablet by mouth daily. 04/11/2012 [place]-3 Acid Ethyl Esters Take 1 Cap by 0 (LOVAZA) 1 gram Cap mouth four times daily. 04/30/2013 OMEPRAZOLE (PRILOSEC PO) Take 40 mg by 0 mouth daily. 10/21/2011 10/26/2011 rivaroxaban (XARELTO) 20 Take 1 Tab by 30 Tab 6 mg Tab tabletIndications: mouth daily Paroxysmal atrial with dinner. fibrillation (HCC), Bradycardia 03/07/2013 sertraline (ZOLOFT) 100 Take 100 mg 0 mg tablet by mouth Daily. 10/21/2011 04/11/2012 sotalol AF (BETAPACE AF) Take 1 Tab by 60 Tab 6 120 mgIndications: mouth twice Paroxysmal atrial daily. fibrillation (HCC), Bradycardia 05/04/2018 traMADol (ULTRAM) 50 mg Take 50 mg by 0 tablet mouth every 6 hours as needed. documented as of this encounter Progress Notes * Laxmi Lam RN - 10/21/2011 10:12 AM CDT Rx faxed to [facility] per pt request. * Laxmi Lam RN - 10/21/2011 9:42 AM CDT Pt assessed at 0900. Pt A&OX4, lungs clear to dim in bases, SR w/1AVB on tele. Pt denies pain at this time. Plan for pt to be dc'd home later this AM. * Andree Ibrahim - 10/21/2011 8:43 AM CDT QTc 480 ms Telemetry demonstrated NSR with first degree AVB Labs noted DC home today. Begin Xarelto Monday * Ernesto Sosa MD - 10/20/2011 9:23 AM CDT Staff Cardiology Progress Note Admission Date: 10/18/2011 Today's Date: 10/20/2011 LOS: 2 days Assessment & Plan Faiza Nation is a 76 y.o. patient with the following problems: Principal Problem: *Bradycardia Active Problems: Paroxysmal atrial fibrillation PLAN PAF: Sotalol initiated and titrated to 120 mg bid. QTc 450 ms. Anticipate DC home in am if remains stable Bradycardia: S/p dual chamber PPM. Stable function. Subjective Incisional discomfort relieved with analgesics. Medications Scheduled Meds: ALPRAZolam (XANAX) tablet 0.25 mg 0.25 mg Oral QDAY amLODIPine (NORVASC) tablet 10 mg 10 mg Oral QDAY aspirin EC tablet 81 mg 81 mg Oral QDAY busPIRone (BUSPAR) tablet 15 mg 15 mg Oral BID donepezil (ARICEPT) tablet 10 mg 10 mg Oral QHS levothyroxine (SYNTHROID) tablet 100 mcg 100 mcg Oral QDAY losartan (COZAAR) tablet 100 mg 100 mg Oral QDAY sertraline (ZOLOFT) tablet 100 mg 100 mg Oral QDAY sotalol AF (BETAPACE AF) tablet 120 mg 120 mg Oral BID cyclobenzaprine (FLEXERIL) tablet 10 mg 10 mg Oral QDAY atenolol (TENORMIN) tablet 25 mg 25 mg Oral QDAY pantoprazole DR (PROTONIX) tablet 40 mg 40 mg Oral BID(05-09) rivaroxaban (XARELTO) tablet 20 mg 20 mg Oral QDAY w/dinner Continuous Infusions: PRN and Respiratory Meds:acetaminophen Q4H PRN, aluminum/magnesium hydroxide Q4H PRN, docusate QDAY PRN, milk of magnesia (CONC) Q6H PRN, nitroglycerin Q5 MIN P RN, temazepam QHS PRN, ondansetron Q6H PRN, HYDROcodone/acetaminophen Q4H PRN Objective Vital Signs: Last Filed Vital Signs: 24 Radha r Range BP: 140/88 mmHg (10/19 737) Temp: 36.5 C (97.7 F) (10/19 737) Pulse: 78 (10/19 737) Respirations: 20 PER MINUTE (10/19 737) SpO2: 93 % (10/19 737) O2 (lpm): 0 LPM (10/19 345) O2 Delivery: None (Room Air) (10/19 737) Height: 170.7 cm (5' 7.2") (10/18 1500) BP: (125-155)/(68-90) Temp: [35.8 C (96.4 F)-36.8 C (98.2 F)] Pulse: [62-78] Respirations: [12 PER MINUTE-20 PER MINUTE] SpO2: [92 %-94 %] O2 (lpm): [0 LPM] O2 Delivery: [-] Filed Vitals: 10/18/11 1014 10/20/11 0738 Weight: 96 kg (211 lb 10.3 oz) 96.163 kg (212 lb) Intake/Output Summary: (Last 24 hours) Intake/Output Summary (Last 24 hours) at 10/20/11 0923 Last data filed at 10/20/11 0900 Gross per 24 hour Intake 360 ml Output 0 ml Net 360 ml Physical Exam GEN: no acute distress HEENT: unremarkable CHEST: clear to auscultation bilaterally, Incisions clean, dry, and intact. No d rainage or hematoma. CV: Reg rhythm, nml rate; nml S1 & S2, no S3 or S4; no rub; no murmurs EXT: no lower extremity edema, 2+ distal pulses Lab Review Hematology: Lab Results Component Value Date HGB 13.4 10/19/2011 HCT 40.0 10/19/2011 PLTCT 210 10/19/2011 WBC 6.7 10/19/2011 NEUT 61 10/19/2011 ANC 4.09 10/19/2011 ALC 1.87 10/19/2011 LUIS 8 10/19/2011 AMC 0.54 10/19/2011 ABC 0.04 10/19/2011 MCV 86.0 10/19/2011 MCHC 34.0 10/19/2011 MPV 8.0 10/19/2011 RDW 15.2 10/19/2011 , Coagulation: No results found for this basename: pt, ptt, inr and General Chemistry: Lab Results Component Value Date NA 138 10/20/2011 K 4.2 10/20/2011 CL 105 10/20/2011 GAP 9 10/20/2011 BUN 15 10/20/2011 CR 0.64 10/20/2011 GLU 97 10/20/2011 CA 8.7 10/20/2011 ALBUMIN 3.2 10/18/2011 MG 2.0 10/20/2011 TOTBILI 1.1 10/18/2011 EKG: NSR with first degree AVB, QTc 450 ms JOSHUA Meyers I concur with documentation of history, assessment, and treatment plan unless o therwise noted. * Annita Lewis RN - 10/19/2011 3:48 PM CDT Pt rec'd from ctr- pt aaox4, vss, c/o pain to lower incision "not enough to need pain medicine", pt sr c 1st degree avb and bbb on telemetry. Pt oriented to olmos rroundings, verbalized understanding. Pt stable, family members at bedside. * Ernesto Sosa MD - 10/19/2011 7:01 AM CDT Patient is doing well. Incision: clean, dry and intact, no hematoma. Device check: Pending CXR: Leads with stable position, no pneumothorax QTc was 466msec yesterday afternoon and 452msec last night post sotalol dose Plan: -No shower for 5 days -May sponge bathe -No lifting arm above shoulder for 4 weeks -Needs a wound check in one week -Device check in 2-3 months -Keep wound clean -Continue sotalol at 120mg BID starting this morning * Antionette De Santiago - 10/18/2011 3:34 PM CDT Patient did not receive booklet: rep will bring in in am when he comes in to int errogate device. documented in this encounter H&P Notes * Ernesto Sosa MD - 10/17/2011 1:38 PM CDT I have not seen nor personally examined this patient. Please refer to the origin al H and P by Dr. Sue Sosa listed below. SHAYLA Liu 10/03/2011 10:12 PM Pended Faiza Nation is a 76 y.o. female. HPI SHAYLA Liu 10/17/2011 1:12 PM Pended Ms. Faiza Nation is a 76-year-old female, who was referred to our Cardiology Cl in by Dr. Gruber from [place], [place]. She is a pleasant 76-year-old female with history of hypertension, hypothyroidism, hyperlipidemia and dementia with parox ysmal atrial fibrillation. She is referred here for possible pacemaker implanta tion. Ms Nation complains of palpitations associated with chest tightness and near-syncopal episodes. She reports that she has had palpitations and irregular heart rhythm for a long time, over almost 10 years. It is not clear if she has had a prior diagnosis of paroxysmal atrial fibrillation, however, when she saw Dr. Gruber a month ago, he placed her on a Holter monitor and she reports that he r numerous Holter monitors have always been negative and did not catch any episo rosalee of atrial fibrillation. She, thus underwent an implantable Reveal monitor d evice, which has shown episodes of atrial fibrillation. Most recent interrogati on here today also shows a 3 second and 4 second pauses such as tachy AV chavez c onduction disease. She reports that lately her palpitations have increased in frequency such that s he gets near-syncopal spells almost once in 2-3 days. She reports that she feel s rapid heart rate associated with lightheadedness. She, in fact, has had 1 syn copal episode last year. She denies any shortness of breath, orthopnea or PND. She only has chest tightness when these palpitations occur. She underwent a stress test, echocardiogram and a cardiac catheterization at the other Hospital. Stress test showed no ischemia with an EF of 65 percent. Echo cardiogram showed an EF of 70 percent with LA size of 4.3 cm and myxomatous mitr al valve degeneration. Her septal and posterior wall thickness was 1 cm. Cardiac cath was done in 2002, which showed mid LAD 30 percent lesion and RCA of 40 percent to 50 percent with diffuse plaques. She is on Norvasc 5 mg, atenolol 50 mg and Cozaar 100 mg for blood pressure. She denies any history of strokes. She is on aspirin 81 mg daily. She reports that she had pain on Coumadin in the past and later it was discontinued because she has had some easy bruising in the skin with it as well as subsequently they were unable to titrate her dose to 1 single dose. When we questioned her about any possible GI bleeding, she reports that she has hemorrhoids and she not only has blood on the tissue paper but also has some blo od in her pants at times. She did have a colonoscopy with polyps a few years ag o and it looks like she is due for her next colonoscopy. We discussed about possible pacemaker implantation and starting antiarrhythmic d rugs. Patient was willing. Past Medical History Patient Active Problem List Diagnoses Date Noted Hypertension Hyperlipidemia Paroxysmal atrial fibrillation Hx of brief AF, CHADS score 2, ASA Hypothyroidism Dementia Anxiety Palpitations Lower GI bleeding Near syncope 09/16/2011 09/14/11 hospital admission to [facility] in [place], [place]. Reveal device 9 [id number] implanted by Allyn Petit MD. 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 Medical sakina tment, started Plavix. 09/14/11 Admitted to [facility] ( [facility]) with CP & palpitations. Stress test Lexiscan Myoview) showed no ischemia. EF 65% Echocardiogram: EF 70%. Mild LVH. La size 4.3cm. Mitral valve with m yxomatous degeneration, mild MR. Cardiac device in situ, other 08/18/2011 09/16/11 Reveal device 9529, Medtronic. Current Medications (including today's revisions) aspirin EC 81 mg tablet Take 81 mg by mouth daily. busPIRone (BUSPAR) 10 mg tablet Take 15 mg by mouth twice daily. Cholecalciferol (Vitamin D3) (VITAMIN D-3) 2,000 unit Tab Take 1 Tab by mo uth daily. levothyroxine (SYNTHROID) 100 mcg tablet Take 100 mcg by mouth daily. meloxicam(+) (MOBIC) 15 mg tablet Take 15 mg by mouth daily. [place]-3 Acid Ethyl Esters (LOVAZA) 1 gram Cap Take 1 Cap by mouth four jenifer es daily. amlodipine (NORVASC) 5 mg tablet Take 10 mg by mouth daily. sertraline (ZOLOFT) 100 [...] tablet Take 100 mg by mouth Daily. Review of Systems Constitution: Positive for chills, diaphoresis, weakness, malaise/fatigue and we ight gain. HENT: Positive for ear pain, stridor and tinnitus. Eyes: Positive for blurred vision, pain and photophobia. Cardiovascular: Positive for chest pain, dyspnea on exertion, irregular heartbea t, leg swelling, near-syncope, orthopnea, palpitations, paroxysmal nocturnal dys pnia and syncope. Respiratory: Positive for cough, shortness of breath, sleep disturbances due to breathing, snoring and wheezing. Hematologic/Lymphatic: Bruises/bleeds easily. Skin: Positive for dry skin. Musculoskeletal: Positive for arthritis, back pain, joint pain and joint swellin g. Gastrointestinal: Positive for bloating, change in bowel habit, constipation, di arrhea, excessive appetite, flatus, heartburn and hemorrhoids. Genitourinary: Positive for bladder incontinence. Neurological: Positive for dizziness, focal weakness, light-headedness, numbness and vertigo. Psychiatric/Behavioral: Positive for memory loss. The patient has insomnia and i s nervous/anxious. All other systems reviewed and are negative. Physical Exam Filed Vitals: 10/03/11 1547 10/03/11 1552 BP: 130/84 126/86 Pulse: 65 Height: 1.676 m (5' 6") Weight: 98.34 kg (216 lb 12.8 oz) Body mass index is 34.99 kg/(m^2). General Appearance: no acute distress Skin: warm, [...] no rub Murmurs: no cardiac murmurs Extremities: has 1+ lower extremity edema; 2+ symmetric distal pulses Abdominal Exam: soft, non-tender, no masses, bowel sounds normal Neurologic Exam: neurological assessment grossly intact Cardiovascular Studies Reveal monitor reveals AF and 3 to 4 sec pauses. EKG today shows sinus rhythm Rate 67, first degree AV block, ND 276, normal axi s. Assessment and Plan This is a 76-year-old female patient with paroxysmal atrial fibrillation and hyp ertension. Paroxysmal atrial fibrillation. Since the patient has pauses, she will definite ly need a permanent pacemaker implantation prior to initiating her on antiarrhyt hmics. We will plan on placing a dual-chamber pacemaker some time within the ne xt 2 weeks when the schedule can be worked out. Thereupon we will admit her to the hospital during the same admission and initiate her on sotalol. She also ne eds to be on anticoagulation given that her CHADS score is 2. We discussed both Coumadin and Pradaxa and the patient was willing to take Pradaxa. However, she does have some occasional bleeding from her hemorrhoids and she is also due for a colonoscopy, hence we encouraged her to followup with her GI physician within the next 2 weeks. Until then, we will give her aspirin 325 mg. We did discuss about the risks for stroke in the interim. The patient will be placed on Matrha xa once her hemorrhoid issue is sorted out. The patient denies any other upper or lower gastrointestinal bleeding other than the hemorrhoids. Hypertension. Continue current medications of Norvasc, atenolol and losartan. Hypothyroidism. Her most recent TSH is normal at 4.1. Continue her current Syn throid dose. Thank you for allowing us to participate in the care of this wonderful patient. documented in this encounter Miscellaneous Notes * Care Plan - Laxmi Lam RN - 10/21/2011 1:00 PM CDT Problem: Discharge Planning Goal: Prepared for discharge Outcome: Goal Achieved Date Met: 10/21/11 DC instructions, including new meds and f/u appt, were discussed with pt. Pt ivonne balized understanding. Problem: Pain Goal: Management of pain Outcome: Goal Achieved Date Met: 10/21/11 Pt denies pain. Goal: Knowledge of pain management Outcome: Goal Achieved Date Met: 10/21/11 Pt denies pain. Problem: Skin Integrity Goal: Skin integrity intact Outcome: Goal Achieved Date Met: 10/21/11 Reviewed s/s to monitor for incision site. Pt given handout on post-PM implant a ctivity instructions. Pt verbalized understanding. * Discharge Instructions - Laxmi Lam RN - 10/21/2011 9:08 AM CDT Discharge Documentation: 2g Sodium Diet Limit to 2 grams of sodium Low Fat/Low Cholesterol Diet Who to Contact: You may have questions about your hospital stay after you get home. If so, pleas e call the hospital at [phone] or [phone] ([facility]) and ask the ope rator to transfer you to the office of your discharge attending physician, or to page the doctor calendar control clerk blood bank (after 4:30 PM or on weekends or holidays). Discharging attending physician: ERNESTO SOSA [[id number]] May resume normal activity in: Do not raise your elbow higher than shoulder level on the affected side for the first 4 weeks. It is important to continue to move shoulder joint gently each da y to prevent stiffening or freezing of the joint. Remember, If you don't move it , you lose it! You can typically resume driving 3-5 days after surgery. There may be special co nsiderations if you passed out before your device was implanted. If you are an active sleeper, you should use your sling at night for the first w [place]. No strenuous activity with the affected arm for 4 weeks, ex. tennis, golfing, sw imming, bowling, mowing the lawn, and shoveling snow. No heavy lifting (greater than 15-20 pounds) for one month with the affected arm . Avoid any activity/exercise which involves rough contact with device site or huey ht cause a heavy blow to the skin over the device. Do not mow lawn (push or riding mower) for 4 weeks. You should be able to resume your normal routine after the first week, however c ontinue to follow the activity restrictions listed above (ex. no vacuuming with affected arm). Avoid extreme fatigue. You may participate in sexual activity unless instructed otherwise. Avoid placin g all your weight on arms until the incision is fully healed (4 weeks). You may return to work within 3-5 days unless instructed otherwise. This will va ry with your occupation, age, and your overall physical condition. Bathing Instructions Keep your incision clean and dry for 5 days after your procedure. Take sponge ba ths working around the incision during this time. May shower 5 days following pr ocedure, however avoid direct water contact to the incision (allow the water to hit back of your shoulder rather than directly on incision). Do not submerge inc ision in tub, pool, hot tub, or hu for 4 weeks. Unless your incision is bleedi ng or draining, keep incision open to air. Avoid applying deodorants, powders, creams, lotions, etc. to your incision for 4 weeks. Usually there are no stitches to be removed. Steri-strips will begin to fall off in 10-14 days (strips of tape). If they remain after 2 weeks, gently remove the m when they are damp after a shower. Your incision should gradually look better each day. If you notice unusual swelling, redness, drainage, have increasing kira n at the site, or have a fever greater than 100 degrees, notify us immediately. Reportable Signs and Symptoms See pacemaker discharge instructions Lightheadedness, fainting/near fainting, shortness of breath, chest pain. Call for: Fever Return Appointment Dr. Sosa in one month Cardiology office will call with appointment Outside Provider Incision check with primary doctor in one week, please call for appointment DEVICE EVALUATION - PPM Standing Status: Future Standing Exp. Date: 10/17/12 Scheduling Attention: Route to Scheduling Location of Appointment [facility] / Mon-Mon REQUEST FOR CARDIOLOGY APPOINTMENT Standing Status: Future Standing Exp. Date: 10/17/12 Scheduling Attention: Route to Scheduling Schedule OV with (1st choice Provider) Ernesto Sosa M.D. Location of Appointment [facility] / Mon-Mon Current Discharge Medication List START taking these medications Details sotalol AF (BETAPACE AF) 120 mg Take 1 Tab by mouth twice daily. Qty: 60 Tab, Refills: 6 Associated Diagnoses: Paroxysmal atrial fibrillation; Bradycardia CONTINUE these medications which have been CHANGED or REFILLED Details rivaroxaban (XARELTO) 20 mg Tab tablet Take 1 Tab by mouth daily with dinner. Qty: 30 Tab, Refills: 6 Associated Diagnoses: Paroxysmal atrial fibrillation; Bradycardia CONTINUE these medications which have NOT CHANGED Details traMADol (ULTRAM) 50 mg tablet Take 50 mg by mouth every 6 hours as needed. aspirin EC 81 mg tablet Take 81 mg by mouth daily. busPIRone (BUSPAR) 10 mg tablet Take 15 mg by mouth twice daily. Cholecalciferol (Vitamin D3) (VITAMIN D-3) 2,000 unit Tab Take 1 Tab by mouth [place]. levothyroxine (SYNTHROID) 100 mcg tablet Take 100 mcg by mouth daily. meloxicam(+) (MOBIC) 15 mg tablet Take 15 mg by mouth daily. [place]-3 Acid Ethyl Esters (LOVAZA) 1 gram Cap Take 1 Cap by mouth four times john ly. amlodipine (NORVASC) 5 mg tablet Take 10 mg by mouth daily. sertraline (ZOLOFT) 100 [...] tablet Take 100 mg by mouth Daily. Immunization History: There is no immunization history on file for this patient. Personal Belongings: Personal Items / Valuables: Eyeglasses/Contacts Medications Brought From Home: Pt did not bring any home meds * Care Plan - Crys Lopez RN - 10/21/2011 4:55 AM CDT Problem: Discharge Planning Goal: Participation in plan of care Outcome: Goal Achieved Date Met: 10/21/11 Pt is actively participating in plan of care. Goal: Knowledge regarding plan of care Outcome: Goal Achieved Date Met: 10/21/11 Pt is able to verbalize knowledge regarding plan of care. * Care Plan - Ancelmo Cazares RN - 10/20/2011 2:52 PM CDT Problem: Discharge Planning Goal: Participation in plan of care Outcome: Goal Ongoing Plan of care discussed with pt today. Pt input used to modify plan when appropri ate. Goal: Knowledge regarding plan of care Outcome: Goal Ongoing Will inform pt of new orders and changes to plan. Goal: Prepared for discharge Outcome: Goal Ongoing Ongoing planning for discharge. Problem: Pain Goal: Management of pain Outcome: Goal Ongoing Pt denies pain today. Pain assessed during each pt interaction. Pain goal asses sed with pt at start of shift. Pain reassessed after medication. Goal: Knowledge of pain management Outcome: Goal Ongoing Educate pt on use of pain scale. Provide alternatives to describe pain. Inform p t of type of pain medication ordered for pain and how often it can be given. Mon itor use of pain medication and side effects. Problem: Skin Integrity Goal: Skin integrity intact Outcome: Goal Ongoing Monitor skin daily, note issues and report. Monitor incision daily, dressing saskia nges as ordered. Report signs and symptoms of infections. * Case Mgmt DC Plan - Deyanira Florence - 10/20/2011 12:50 PM CDT 10/20/11-SW met with pt for initial assessment this date. Pt is an alert,oriented 76 yo female admitted 10/19/11 wut bradycardia. PPM Placed 10/18. Met with pt and 2 dtr in room.Pt states she lives alone in an apt in [place], [place],near [place] Dtrs live nearby.Pt has 3 dtrs. Pt was transferred here from [facility] in [place], [place] Pt has Medicare and Medicaid which covers meds. Pt has had H H in past after hip and knee surgeries but none recently.Neither dtr nor pt reca ll name of agency.Discussed with PRODUCT MANAGEMENT MANAGER.No HH needs indicated.SW# left with pt shoul d needs arise.HANS Stacy,CCM * Care Plan - Luiaz Escalante - 10/19/2011 9:00 PM CDT Problem: Discharge Planning Goal: Participation in plan of care Outcome: Goal Ongoing Discussed plan of care with patient. Patient denies questions regarding plan at this time. Problem: Pain Goal: Management of pain Outcome: Goal Ongoing Patient states that the pain pill given by previous RN completely relieved her p ain and denies any pain at this time. Goal: Knowledge of pain management Outcome: Goal Ongoing Educated patient to notify RN if she begins to have pain again. documented in this encounter Plan of Treatment Order Schedule Name Type Priority Associated Diagnoses ONE TIME for 1 Occurrences starting 10/19/2011 until 10/19/2011 ECG 12-LEAD ECG STAT A-fib Chavez rhythm disorder ONE TIME for 1 Occurrences starting 10/19/2011 until 10/19/2011 ECG 12-LEAD ECG Routine Paroxysmal atrial fibrillation Near syncope Chavez rhythm disorder Bradycardia documented as of this encounter Procedures Comments Procedure Name Priority Date/Time Associated Diagnosis POC GLUCOSE 10/21/2011 10:49 AM CDT POC GLUCOSE 10/21/2011 7:07 AM CDT MAGNESIUM Routine 10/21/2011 4:17 AM CDT BASIC METABOLIC PANEL Routine 10/21/2011 4:17 AM CDT POC GLUCOSE 10/21/2011 3:24 AM CDT POC GLUCOSE 10/20/2011 9:27 PM CDT POC GLUCOSE 10/20/2011 4:43 PM CDT POC GLUCOSE 10/20/2011 10:35 AM CDT POC GLUCOSE 10/20/2011 7:13 AM CDT MAGNESIUM Routine 10/20/2011 4:15 AM CDT BASIC METABOLIC PANEL Routine 10/20/2011 A-fib 4:15 AM CDT Chavez rhythm disorder POC GLUCOSE 10/20/2011 3:48 AM CDT POC GLUCOSE 10/19/2011 9:18 PM CDT POC GLUCOSE 10/19/2011 5:02 PM CDT DEVICE EVALUATION - PPM Routine 10/19/2011 Paroxysmal atrial 4:33 PM CDT fibrillation Near syncope Chavez rhythm disorder Bradycardia POC GLUCOSE 10/19/2011 11:28 AM CDT POC GLUCOSE 10/19/2011 6:24 AM CDT CHEST 2 VIEWS Routine 10/19/2011 Paroxysmal atrial 6:02 AM CDT fibrillation Near syncope Chavez rhythm disorder Bradycardia POC GLUCOSE 10/19/2011 4:11 AM CDT CBC AND DIFF Routine 10/19/2011 Paroxysmal atrial 4:00 AM CDT fibrillation Near syncope Chavez rhythm disorder Bradycardia MAGNESIUM Routine 10/19/2011 4:00 AM CDT BASIC METABOLIC PANEL Routine 10/19/2011 A-fib 4:00 AM CDT Chavez rhythm disorder REMOVAL CARDIAC EVENT Routine 10/18/2011 RECORDER 2:04 PM CDT FREE T4-FREE THYROXINE STAT 10/18/2011 10:15 AM CDT TSH WITH FREE T4 REFLEX STAT 10/18/2011 A-fib 10:15 AM CDT Chavez rhythm disorder CBC STAT 10/18/2011 A-fib 10:15 AM CDT Chavez rhythm disorder MAGNESIUM Add on 10/18/2011 10:15 AM CDT COMPREHENSIVE METABOLIC STAT 10/18/2011 A-fib PANEL 10:15 AM CDT Chavez rhythm disorder documented in this encounter Results * DEVICE EVALUATION - PPM (11/25/2011 1:57 PM CDT) Generator OTHER OUTSIDE Apartment Leasing Specialist LAB Other Generator Model REVO MRI RVDR01 OTHER OUTSIDE # LAB Generator [id number] OTHER OUTSIDE Serial # LAB Generator 10/18/2011 [...] OUTSIDE Indicator LAB Generator Medtronic OTHER OUTSIDE Apartment Leasing Specialist LAB Generator No OTHER OUTSIDE Investigational LAB Wireless No OTHER OUTSIDE Generator LAB Device Type DDD-PM OTHER OUTSIDE LAB Other Implant OTHER OUTSIDE Info LAB Atrial Lead OTHER OUTSIDE Apartment Le[employer] Specialist LAB Other Atrial Lead CAPSUREFIX MRI SURESCAN OTHER OUTSIDE Model # 5086-52 LAB Atrial Lead [id number] OTHER OUTSIDE Serial # LAB Atrial Lead 10/18/2011 OTHER OUTSIDE Implant Date LAB Atrial Lead OTHER OUTSIDE Location Other LAB Atrial Lead OTHER OUTSIDE Polarity Other LAB Atrial Lead 10 OTHER OUTSIDE Diaph. LAB Stimulation Atrial Lead Medtronic OTHER OUTSIDE Apartment Leasing Specialist LAB Atrial Lead No OTHER OUTSIDE Investigational LAB Atrial Lead active fixation OTHER OUTSIDE Fixation LAB Atrial Lead right atrial appendage OTHER OUTSIDE Location LAB Atrial Lead Pin IS1 OTHER OUTSIDE Connector LAB Atrial Lead Bipolar OTHER OUTSIDE Polarity LAB RV Lead OTHER OUTSIDE Apart[employer] Le[employer] Specialist LAB Other RV Lead Model # CAPSUREFIX MRI SURESCAN OTHER OUTSIDE 5086-58 LAB RV Lead Serial [id number] OTHER OUTSIDE # LAB RV Lead Implant 10/18/2011 OTHER OUTSIDE Date LAB RV Lead OTHER OUTSIDE Location Other LAB RV Lead Diaph. 10 OTHER OUTSIDE Stimulation LAB RV Lead Medtronic OTHER OUTSIDE Apartment Leasing Specialist LAB RV Lead No OTHER OUTSIDE Investigational LAB RV Lead active fixation OTHER OUTSIDE Fixation LAB RV Lead RV low septum OTHER OUTSIDE Location LAB RV Lead Pin IS1 OTHER OUTSIDE Connector ICD LAB RV Lead Coil OTHER OUTSIDE LAB LV Lead OTHER OUTSIDE Apartment Le[employer] Specialist LAB Other LV Lead Model # OTHER OUTSIDE LAB LV Lead Serial OTHER OUTSIDE # LAB LV Lead Implant OTHER OUTSIDE Date LAB LV Lead OTHER OUTSIDE Location Other LAB LV Lead OTHER OUTSIDE Polarity Other LAB LV Lead OTHER OUTSIDE Configuration LAB Other LV Lead OTHER OUTSIDE Apartment Le[employer] Specialist LAB LV Lead OTHER OUTSIDE Investigational [...] OUTSIDE LAB [11/25/2011 2:02:31 PM - Keely key/ Natividad Rebollar RN] - Full dual chamber PPM device check.S/p implant on 10/18/2011.Device function appears normal.37 AT/AF events, longest 97 min.Time in AT/AF 0.2 hr/day (0.8% of the time), A-rates: 60-293 bpm, V-rates well controlled at 60-95 bpm.Available EGM's appear to show brief events AFib.Presenting rhythm NSR at 80 bpm, -VS 42.8%, -FIRST OFFICER 0.5%, AP-VS 56.1%, AP-FIRST OFFICER 0.6%. PVC singles 2.1 per hour, runs [...] rhythm NSR at 80 bpm, -VS 42.8%, -FIRST OFFICER 0.5%, AP-VS 56.1%, AP-FIRST OFFICER 0.6%. PVC singles 2.1 per hour, runs 0.1 per hour. Pt activity 1.4 hr.day. No permanent programming changes as pt is 1 month out from implant. Will follow up to enroll pt with [facility]. Report given to RAD. See attached Paceart report titled HRM data sheets to see full Paceart report./mkm Performing Organization Address City/State/[facility] Phone Number OTHER OUTSIDE LAB * POC GLUCOSE (10/21/2011 10:49 AM CDT) Glucose, POC 102 (H) 70 - 100 MG/DL [facility] RESULTS Specimen Performing Organization Address [facility] Phone Number [facility] RESULTS * POC GLUCOSE (10/21/2011 7:07 AM CDT) Glucose, POC 113 (H) 70 - 100 MG/DL [facility] RESULTS Specimen Performing Organization Address [facility] Phone Number [facility] RESULTS * MAGNESIUM (10/21/2011 4:17 AM CDT) Magnesium 2.0 1.6 - 2.6 MG/DL [facility] RESULTS Specimen Blood - Blood Performing Organization Address [facility] Phone Number [facility] RESULTS * BASIC METABOLIC PANEL (10/21/2011 4:17 AM CDT) Sodium 141 137 - 147 MMOL/L [facility] RESULTS Potassium 4.0 3.5 - 5.1 MMOL/L [facility] RESULTS Chloride 106 98 - 110 MMOL/L [facility] RESULTS CO2 26 21 - 30 MMOL/L [facility] RESULTS Anion Gap 9 8 - 12 [facility] RESULTS Glucose 107 (H) 70 - 100 MG/DL [facility] RESULTS Blood Urea 10 8 - 20 MG/DL [facility] RESULTS Nitrogen Creatinine 0.81 0.4 - 1.00 MG/DL [facility] RESULTS Calcium 8.7 (L) 9.0 - 11.0 MG/DL [facility] RESULTS eGFR Non >60 >60 ML/MIN/1.73 SQM [facility] RESULTS Comment: [place] The eGFR is not validated for use in drug dosing adjustments.Continue to use estimated creatinine clearance per dosing reference text.Please contact the Clinical Pharmacist for questions. eGFR >60 >60 ML/MIN/1.73 SQM [facility] RESULTS [place] Comment: The eGFR is not validated for use in drug dosing adjustments.Continue to use estimated creatinine clearance per dosing reference text.Please contact the Clinical Pharmacist for questions. Specimen Blood - Blood Performing Organization Address [facility] Phone Number [facility] RESULTS * POC GLUCOSE (10/21/2011 3:24 AM CDT) Glucose, POC 102 (H) 70 - 100 MG/DL [facility] RESULTS Specimen Performing Organization Address [facility] Phone Number LAB RESULTS * POC GLUCOSE (10/20/2011 9:27 PM CDT) Glucose, POC 136 (H) 70 - 100 MG/DL [facility] RESULTS Specimen Performing Organization Address [facility] Phone Number LAB RESULTS * POC GLUCOSE (10/20/2011 4:43 PM CDT) Glucose, POC 106 (H) 70 - 100 MG/DL [facility] RESULTS Specimen Performing Organization Address [facility] Phone Number LAB RESULTS * POC GLUCOSE (10/20/2011 10:35 AM CDT) Glucose, POC 71 70 - 100 MG/DL [facility] RESULTS Specimen Performing Organization Address [facility] Phone Number LAB RESULTS * POC GLUCOSE (10/20/2011 7:13 AM CDT) Glucose, POC 109 (H) 70 - 100 MG/DL [facility] RESULTS Specimen Performing Organization Address [facility] Number LAB RESULTS * MAGNESIUM (10/20/2011 4:15 AM CDT) Magnesium 2.0 1.6 - 2.6 MG/DL [facility] RESULTS Specimen Blood - Blood Performing Organization Address [facility] Number LAB RESULTS * BASIC METABOLIC PANEL (10/20/2011 4:15 AM CDT) Sodium 138 137 - 147 MMOL/L [facility] RESULTS Potassium 4.2Comment: SLT HEMOLYSIS 3.5 - 5.1 MMOL/L [facility] RESULTS Chloride 105 98 - 110 MMOL/L [facility] RESULTS CO2 24 21 - 30 MMOL/L [facility] RESULTS Anion Gap 9 8 - 12 [facility] RESULTS Glucose 97 70 - 100 MG/DL [facility] RESULTS Blood Urea 15 8 - 20 MG/DL [facility] RESULTS Nitrogen Creatinine 0.64 0.4 - 1.00 MG/DL [facility] RESULTS Calcium 8.7 (L) 9.0 - 11.0 MG/DL [facility] RESULTS eGFR Non >60 >60 ML/MIN/1.73 SQM [facility] RESULTS Comment: [place] The eGFR is not validated for use in drug dosing adjustments.Continue to use estimated creatinine clearance per dosing reference text.Please contact the Clinical Pharmacist for questions. eGFR >60 >60 ML/MIN/1.73 SQM [facility] RESULTS [place] Comment: The eGFR is not validated for use in drug dosing adjustments.Continue to use estimated creatinine clearance per dosing reference text.Please contact the Clinical Pharmacist for questions. Specimen Blood - Blood Performing Organization Address City/[facility]/Zipcode Phone Number [facility] RESULTS * POC GLUCOSE (10/20/2011 3:48 AM CDT) Glucose, POC 98 70 - 100 MG/DL [facility] RESULTS Specimen Performing Organization Address City/[facility] Phone Number [facility] RESULTS * POC GLUCOSE (10/19/2011 9:18 PM CDT) Glucose, POC 91 70 - 100 MG/DL [facility] RESULTS Specimen Performing Organization Address [facility] Phone Number [facility] RESULTS * POC GLUCOSE (10/19/2011 5:02 PM CDT) Glucose, POC 112 (H) 70 - 100 MG/DL [facility] RESULTS Specimen Performing Organization Address [facility] Phone Number LAB RESULTS * DEVICE EVALUATION - PPM (10/19/2011 4:33 PM CDT) Generator OTHER OUTSIDE Apartment Le[employer] Specialist LAB Other Generator Model REVO MRI RVDR01 OTHER OUTSIDE # LAB Generator [id number] OTHER OUTSIDE Serial # LAB Generator 10/18/2011 [...] OUTSIDE Indicator LAB Generator Medtronic OTHER OUTSIDE Apartment Leasing Specialist LAB Generator No OTHER OUTSIDE Investigational LAB Wireless No OTHER OUTSIDE Generator LAB Device Type DDD-PM OTHER OUTSIDE LAB Other Implant OTHER OUTSIDE Info LAB Atrial Lead OTHER OUTSIDE Apartment Leasing Specialist LAB Other Atrial Lead CAPSUREFIX MRI SURESCAN OTHER OUTSIDE Model # 5086-52 LAB Atrial Lead [id number] OTHER OUTSIDE Serial # LAB Atrial Lead 10/18/2011 OTHER OUTSIDE Implant Date LAB Atrial Lead OTHER OUTSIDE Location Other LAB Atrial Lead OTHER OUTSIDE Polarity Other LAB Atrial Lead 10 OTHER OUTSIDE Diaph. LAB Stimulation Atrial Lead Medtronic OTHER OUTSIDE Apartment Leasing Specialist LAB Atrial Lead No OTHER OUTSIDE Investigational LAB Atrial Lead active fixation OTHER OUTSIDE Fixation LAB Atrial Lead right atrial appendage OTHER OUTSIDE Location LAB Atrial Lead Pin IS1 OTHER OUTSIDE Connector LAB Atrial Lead Bipolar OTHER OUTSIDE Polarity LAB RV Lead OTHER OUTSIDE Apartment Leasing Specialist LAB Other RV Lead Model # CAPSUREFIX MRI SURESCAN OTHER OUTSIDE 5086-58 LAB RV Lead Serial [id number] OTHER OUTSIDE # LAB RV Lead Implant 10/18/2011 OTHER OUTSIDE Date LAB RV Lead OTHER OUTSIDE Location Other LAB RV Lead Diaph. 10 OTHER OUTSIDE Stimulation LAB RV Lead Medtronic OTHER OUTSIDE Apartment Leasing Specialist LAB RV Lead No OTHER OUTSIDE Investigational LAB RV Lead active fixation OTHER OUTSIDE Fixation LAB RV Lead RV low septum OTHER OUTSIDE Location LAB RV Lead Pin IS1 OTHER OUTSIDE Connector ICD LAB RV Lead Coil OTHER OUTSIDE LAB LV Lead OTHER OUTSIDE Apartment Leasing Specialist LAB Other LV Lead Model # OTHER OUTSIDE LAB LV Lead Serial OTHER OUTSIDE # LAB LV Lead Implant OTHER OUTSIDE Date LAB LV Lead OTHER OUTSIDE Location Other LAB LV Lead OTHER OUTSIDE Polarity Other LAB LV Lead OTHER OUTSIDE Configuration LAB Other LV Lead OTHER OUTSIDE Apartment Leasing Specialist LAB LV Lead OTHER OUTSIDE Investigational [...] LAB See scanned Implantable Device Flowsheet.Checked by Oleg Estrada, inpatient post implant day 1 check.Device function appears normal.No events or alerts noted.No permanent programming changes made this session.Will route to Dr. Harrington in clinic at . Procedure Note Page Harrington MD - 10/20/2011 10:29 AM CDT See scanned Implantable Device Flowsheet. Checked by Oleg Estrada, inpatient post implant day 1 check. Device function appears normal. No events or alerts noted. No permanent programming changes made this session. Will route to Dr. Harrington in clinic at . Performing Organization Address City/State/Zipcode Phone Number OTHER OUTSIDE LAB * POC GLUCOSE (10/19/2011 11:28 AM CDT) Glucose, POC 80 70 - 100 MG/DL [facility] RESULTS Specimen Performing Organization Address City/State/Zipcode Phone Number [facility] RESULTS * POC GLUCOSE (10/19/2011 6:24 AM CDT) Glucose, POC 117 (H) 70 - 100 MG/DL [facility] RESULTS Specimen Performing Organization Address City[facility] Phone Number [facility] * CHEST 2 VIEWS (10/19/2011 6:02 AM CDT) Exam Status [facility] RAD SIGNED REPORT Exam EXAM: [facility] TWO-VIEW CHEST Clinical History: 76-year-old female post device implantation. No prior studies are available for direct comparison. Dr. Medrano has personally reviewed these images and formulated the interpretations and opinions expressed in this report. Findings colon PA and lateral views of the chest demonstrate that the heart is within the upper limits of normal in size. The pulmonary vasculature appears to be within normal limits. There is mild atherosclerotic calcification about the aortic knob. No acute pulmonary infiltrates or areas of consolidation are seen. No pneumothorax or pleural effusion is identified. A small to moderate-sized hiatal hernia is appreciated. Left subclavian bipolar pacer leads are in place, which appear to be intact, with battery pack in the left upper anterior chest wall. Impression CHEST 2 [facility] VIEWS IMPRESSION: NO ACUTE CARDIOPULMONARY PROCESS. SMALL TO MODERATE-SIZED HIATAL HERNIA. LEFT SUBCLAVIAN BIPOLAR PACER LEADS IN PLACE, WHICH APPEAR TO BE INTACT, WITH BATTERY PACK IN LEFT UPPER ANTERIOR CHEST WALL. Electronically signed on: 20119:10AM by PIETER MEDRANO M.D. Specimen Impressions Performed At CHEST 2 VIEWS IMPRESSION: [facility] NO ACUTE CARDIOPULMONARY PROCESS. SMALL TO MODERATE-SIZED HIATAL HERNIA. LEFT SUBCLAVIAN BIPOLAR PACER LEADS IN PLACE, WHICH APPEAR TO BE INTACT, WITH BATTERY PACK IN LEFT UPPER ANTERIOR CHEST WALL. Electronically signed on: 20119:10AM by PIETER MEDRANO M.D. Narrative Performed At EXAM: [facility] TWO-VIEW CHEST Clinical History: 76-year-old female post device implantation. No prior studies are available for direct comparison. Dr. Medrano has personally reviewed these images and formulated the interpretations and opinions expressed in this report. Findings colon PA and lateral views of the chest demonstrate that the heart is within the upper limits of normal in size. The pulmonary vasculature appears to be within normal limits. There is mild atherosclerotic calcification about the aortic knob. No acute pulmonary infiltrates or areas of consolidation are seen. No pneumothorax or pleural effusion is identified. A small to moderate-sized hiatal hernia is appreciated. Left subclavian bipolar pacer leads are in place, which appear to be intact, with battery pack in the left upper anterior chest wall. Performing Organization Address [facility] Phone Number [facility] * POC GLUCOSE (10/19/2011 4:11 AM CDT) Glucose, POC 138 (H) 70 - 100 MG/DL [facility] RESULTS Specimen Performing Organization Address [facility] Phone Number [facility] RESULTS * MAGNESIUM (10/19/2011 4:00 AM CDT) Magnesium 1.9 1.6 - 2.6 MG/DL [facility] RESULTS Specimen Blood - Blood Performing Organization Address [facility] Phone Number [facility] RESULTS * BASIC METABOLIC PANEL (10/19/2011 4:00 AM CDT) Sodium 143 137 - 147 MMOL/L [facility] RESULTS Potassium 4.2 3.5 - 5.1 MMOL/L [facility] RESULTS Chloride 107 98 - 110 MMOL/L [facility] RESULTS CO2 26 21 - 30 MMOL/L [facility] RESULTS Anion Gap 10 8 - 12 [facility] RESULTS Glucose 128 (H) 70 - 100 MG/DL [facility] RESULTS Blood Urea 16 8 - 20 MG/DL [facility] RESULTS Nitrogen Creatinine 0.86 0.4 - 1.00 MG/DL [facility] RESULTS Calcium 9.0 9.0 - 11.0 MG/DL [facility] RESULTS eGFR Non >60 >60 ML/MIN/1.73 SQM [facility] RESULTS Comment: [place] The eGFR is not validated for use in drug dosing adjustments.Continue to use estimated creatinine clearance per dosing reference text.Please contact the Clinical Pharmacist for questions. eGFR >60 >60 ML/MIN/1.73 SQM [facility] RESULTS [place] Comment: The eGFR is not validated for use in drug dosing adjustments.Continue to use estimated creatinine clearance per dosing reference text.Please contact the Clinical Pharmacist for questions. Specimen Blood - Blood Performing Organization Address City/State/Zipcode Phone Number [facility] RESULTS * CBC AND DIFF (10/19/2011 4:00 AM CDT) White Blood 6.7 4.5 - 11.0 K/UL [facility] RESULTS Cells RBC 4.70 4.0 - 5.0 M/UL [facility] RESULTS Hemoglobin 13.4 12.0 - 15.0 GM/DL [facility] RESULTS Hematocrit 40.0 36 - 45 % [facility] RES[facility] MCV 86.0 80 - 100 FL [facility] RES[facility] MCH 29.0 26 - 34 PG [facility] RES[facility] MCHC 34.0 32.0 - 36.0 G/DL [facility] RDW 15.2 (H) 11 - 15 % [facility] Platelet Count 210 150 - 400 K/UL [facility] MPV 8.0 7 - 11 FL [facility] Neutrophils 61 41 - 77 % [facility] Lymphocytes 28 24 - 44 % [facility] Monocytes 8 4 - 12 % [facility] Eosinophils 2 0 - 5 % [facility] Basophils 1 0 - 2 % [facility] Absolute 4.09 1.8 - 7.0 K/UL [facility] Neutrophil Count Absolute Lymph 1.87 1.0 - 4.8 K/UL [facility] Count Absolute 0.54 0 - 0.80 K/UL [facility] Monocyte Count Absolute 0.13 0 - 0.45 K/UL [facility] RES[facility] Eosinophil Count Absolute 0.04 0 - 0.20 K/UL [facility] RES[facility] Basophil Count Specimen Blood - Blood Performing Organization Address City/State/Zipcode Phone Number [facility] RESULTS * EP DEVICE (10/18/2011 2:04 PM CDT) Generator OTHER OUTSIDE [employer] LAB Other Generator Model REVO MRI [id number] OTHER OUTSIDE # LAB Generator [id number] OTHER OUTSIDE Serial # LAB Generator 10/18/2011 [...] OUTSIDE Indicator LAB Generator Medtronic OTHER OUTSIDE [employer] LAB Generator No OTHER OUTSIDE Investigational LAB Wireless No OTHER OUTSIDE Generator LAB Device Type DDD-PM OTHER OUTSIDE LAB Other Implant OTHER OUTSIDE Info LAB Atrial Lead OTHER OUTSIDE [employer] LAB Other Atrial Lead CAPSUREFIX MRI SURESCAN OTHER OUTSIDE Model # 5086-52 LAB Atrial Lead [id number] OTHER OUTSIDE Serial # LAB Atrial Lead 10/18/2011 OTHER OUTSIDE Implant Date LAB Atrial Lead OTHER OUTSIDE Location Other LAB Atrial Lead OTHER OUTSIDE Polarity Other LAB Atrial Lead 10 OTHER OUTSIDE Diaph. LAB Stimulation Atrial Lead Medtronic OTHER OUTSIDE [employer] LAB Atrial Lead No OTHER OUTSIDE Investigational LAB Atrial Lead active fixation OTHER OUTSIDE Fixation LAB Atrial Lead right atrial appendage OTHER OUTSIDE Location LAB Atrial Lead Pin IS1 OTHER OUTSIDE Connector LAB Atrial Lead Bipolar OTHER OUTSIDE Polarity LAB RV Lead OTHER OUTSIDE [employer] LAB Other RV Lead Model # CAPSUREFIX MRI SURESCAN OTHER OUTSIDE 5086-58 LAB RV Lead Serial [id number] OTHER OUTSIDE # LAB RV Lead Implant 10/18/2011 OTHER OUTSIDE Date LAB RV Lead OTHER OUTSIDE Location Other LAB RV Lead Diaph. 10 OTHER OUTSIDE Stimulation LAB RV Lead Medtronic OTHER OUTSIDE [employer] LAB RV Lead No OTHER OUTSIDE Investigational LAB RV Lead active fixation OTHER OUTSIDE Fixation LAB RV Lead RV low septum OTHER OUTSIDE Location LAB RV Lead Pin IS1 OTHER OUTSIDE Connector ICD LAB RV Lead Coil OTHER OUTSIDE LAB LV Lead OTHER OUTSIDE [employer] LAB Other LV Lead Model # OTHER OUTSIDE LAB LV Lead Serial OTHER OUTSIDE # LAB LV Lead Implant OTHER OUTSIDE Date LAB LV Lead OTHER OUTSIDE Location Other LAB LV Lead OTHER OUTSIDE Polarity Other LAB LV Lead OTHER OUTSIDE Configuration LAB Other LV Lead OTHER OUTSIDE [employer] LAB LV Lead OTHER OUTSIDE Investigational [...] OUTSIDE Status LAB Specimen Narrative Performed At Date of procedure: 10/18/2011 OTHER OUTSIDE LAB Study Number: [id number] Light Bulb Replacer: Ernesto Sosa MD Mental Health Tech: Ewelina Egan MD Procedure: Implantable Loop Recorder removale Procedure: The procedure was performed in the EP lab.This procedure was done after pacemaker implantation which is reported separately. Heart rhythm, blood pressure, oxygen saturation and level of consciousness was assessed prior to, during, and after the procedure.Medications were administered by a trained staff who in turn were supervised by me.Following sterile prep and drape, a 1 inch incision was made over the previous incision. The incision dissected down and the device was found. The device was removed. There was an arterial bleeder which was controlled by cautery. The pocket was copiously irrigated with antibiotic solution. The incision was closed in two layers using 2-0 and 4-0 vicryl. The patient tolerated the procedure well.She was returned to outpatient telemetry in stable condition. Impression: - Successful removal of implantation of loop recorder This procedure was performed under direct supervision of staff business reporter who was present throughout the procedure. Procedure Note Ernesto Sosa MD - 10/18/2011 9:44 PM CDT Date of procedure: 10/18/2011 Study Number: [id number] Light Bulb Replacer: Ernesto Sosa MD Mental Health Tech: Ewelina Egan MD Procedure: Implantable Loop Recorder removale Procedure: The procedure was performed in the EP lab. This procedure was done after pacemaker implantation which is reported separately. Heart rhythm, blood pressure, oxygen saturation and level of consciousness was assessed prior to, during, and after the procedure. Medications were administered by a trained staff who in turn were supervised by me. Following sterile prep and drape, a 1 inch incision was made over the previous incision. The incision dissected down and the device was found. The device was removed. There was an arterial bleeder which was controlled by cautery. The pocket was copiously irrigated with antibiotic solution. The incision was closed in two layers using 2-0 and 4-0 vicryl. The patient tolerated the procedure well. She was returned to outpatient telemetry in stable condition. Impression: - Successful removal of implantation of loop recorder This procedure was performed under direct supervision of staff business reporter who was present throughout the procedure. Performing Organization Address [facility] Phone Number OTHER OUTSIDE LAB * MAGNESIUM (10/18/2011 10:15 AM CDT) Magnesium 2.1 1.6 - 2.6 MG/DL [facility] RESULTS Specimen Performing Organization Address [facility] Phone Number [facility] * FREE T4-FREE THYROXINE (10/18/2011 10:15 AM CDT) T4-Free 0.8 0.6 - 1.6 NG/DL [facility] RES[facility] Specimen Performing Organization Address [facility] Phone Number [facility] * TSH WITH FREE T4 REFLEX (10/18/2011 10:15 AM CDT) TSH 7.470 (H) 0.35 - 5.00 MCU/ML [facility] RESULTS Specimen Blood - Blood Performing Organization Address [facility] [place] [facility] Phone Number [facility] RESULTS * COMPREHENSIVE METABOLIC PANEL (10/18/2011 10:15 AM CDT) Sodium 140 137 - 147 MMOL/L [facility] Potassium 4.3Comment: SLT HEMOLYSIS 3.5 - 5.1 MMOL/L [facility] Chloride 106 98 - 110 MMOL/L [facility] Glucose 113 (H) 70 - 100 MG/DL [facility] RESULTS Blood Urea 18 8 - 20 MG/DL [facility] RES[facility] Nitrogen Creatinine 0.81 0.4 - 1.00 MG/DL [facility] Calcium 9.1 9.0 - 11.0 MG/DL [facility] RES[facility] Total Protein 7.1 6.0 - 8.0 G/DL [facility] RESULTS Total Bilirubin 1.1 0.3 - 1.2 MG/DL [facility] Albumin 3.2 (L) 3.5 - 5.0 G/DL [facility] Alk Phosphatase 59 25 - 110 U/L [facility] AST (SGOT) 33 7 - 40 U/L [facility] CO2 22 21 - 30 MMOL/L [facility] ALT (SGPT) 32 7 - 56 U/L [facility] Anion Gap 12 8 - 12 [facility] RES[facility] eGFR Non >60 >60 ML/MIN/1.73 SQM [facility] RESULTS Comment: [place] The eGFR is not validated for use in drug dosing adjustments.Continue to use estimated creatinine clearance per dosing reference text.Please contact the Clinical Pharmacist for questions. eGFR >60 >60 ML/MIN/1.73 SQM [facility] RESULTS [place] Comment: The eGFR is not validated for use in drug dosing adjustments.Continue to use estimated creatinine clearance per dosing reference text.Please contact the Clinical Pharmacist for questions. Specimen Blood - Blood Performing Organization Address City/State/Zipcode Phone Number [facility] RESULTS * CBC (10/18/2011 10:15 AM CDT) White Blood 6.3 4.5 - 11.0 K/UL [facility] RESULTS Cells RBC 5.00 4.0 - 5.0 M/UL [facility] RESULTS Hemoglobin 14.3 12.0 - 15.0 GM/DL [facility] RESULTS Hematocrit 43.1 36 - 45 % [facility] RESULTS MCV 86.0 80 - 100 FL [facility] RESULTS MCH 29.0 26 - 34 PG [facility] RESULTS MCHC 33.0 32.0 - 36.0 G/DL [facility] RESULTS RDW 15.3 (H) 11 - 15 % [facility] RES[facility] Platelet Count 222 150 - 400 K/UL [facility] RESULTS MPV 8.0 7 - 11 FL [facility] RESULTS Specimen Blood - Blood Performing Organization Address City/State/Zipcode Phone Number [facility] RESULTS documented in this encounter Visit Diagnoses Diagnosis Bradycardia - Primary Other specified cardiac dysrhythmias Hypertension Unspecified essential hypertension Hyperlipidemia Other and unspecified hyperlipidemia Paroxysmal atrial fibrillation (HCC) Atrial fibrillation Hypothyroidism Unspecified hypothyroidism Dementia Dementia, unspecified, without behavioral disturbance Anxiety Anxiety state, unspecified Palpitations Lower GI bleeding Hemorrhage of gastrointestinal tract, unspecified Cardiac device in situ, other Other specified cardiac device in situ Near syncope Syncope and collapse Chest pain Chest pain, unspecified A-fib (HCC) Atrial fibrillation Chavez rhythm disorder Other specified cardiac dysrhythmias Atrial fibrillation (HCC) Atrial fibrillation documented in this encounter Administered Medications Action Date Dose Rate Site Medication Order MAR Action 10/21/2011 9:33 AM CDT 0.25 mg ALPRAZolam (XANAX) tablet 0.25 mg Given 0.25 mg, Oral, DAILY, First dose on Mon10/18/11 at 1845, Until Discontinued 0.25 mg Given 10/20/2011 8:55 AM CDT 0.25 mg Given 10/19/2011 9:00 AM CDT 10/21/2011 9:05 AM CDT 10 mg amLODIPine (NORVASC) tablet 10 mg Given 10 mg, Oral, DAILY, First dose on Mon10/18/11 at 1845, Until Discontinued, NURSING: Please educate patient and document: Do not give with grapefruit juice., 10 mg Given 10/20/2011 8:55 AM CDT 10 mg Given 10/19/2011 9:00 AM CDT 10/21/2011 9:05 AM CDT 81 mg aspirin EC tablet 81 mg Given 81 mg, Oral, DAILY, First dose on Mon10/18/11 at 1845, Until Discontinued 81 mg Given 10/20/2011 8:55 AM CDT 81 mg Given 10/19/2011 9:00 AM CDT 10/21/2011 9:05 AM CDT 25 mg atenolol (TENORMIN) tablet 25 mg Given 25 mg, Oral, DAILY, First dose on Mon10/19/11 at 0900, Until Discontinued 25 mg Given 10/20/2011 8:55 AM CDT 25 mg Given 10/19/2011 9:00 AM CDT 10/21/2011 9:05 AM CDT 15 mg busPIRone (BUSPAR) tablet 15 mg Given 15 mg, Oral, TWICE DAILY, First dose on Mon10/18/11 at 2100, Until Discontinued 15 mg Given 10/20/2011 8:37 PM CDT 15 mg Given 10/20/2011 8:55 AM CDT 10/18/2011 8:10 PM CDT 2 g ceFAZolin (ANCEF) IVP 2 g Given 2 g, Intravenous, EVERY 8 HOURS, 2 doses, First dose on Mon10/18/11 at 1000, Last dose on Mon10/18/11 at 1800, Give pre-op dose in EP lab within 1 hour prior to incision. Give post-op dose 8 hours after pre-op dose. IV PUSH -- RECONSTITUTE each 1 g vial by adding 10 mL 0.9% NACL, for patients 80-115 kg, Admission/Obs/Extended Recovery 0 g Given - See OR/Proc Flowsheet 10/18/2011 12:10 PM CDT 10/18/2011 6:45 PM CDT 0 mg cyclobenzaprine (FLEXERIL) tablet 10 mg Given - See 10 mg, Oral, DAILY, First dose on Mon OR/10/18/11 at 1845, Until Discontinued Flowsheet 10/20/2011 8:37 PM CDT 10 mg cyclobenzaprine (FLEXERIL) tablet 10 mg Given 10 mg, Oral, DAILY, First dose on Mon10/18/11 at 2100, Until Discontinued 10 mg Given 10/19/2011 9:15 PM CDT 10 mg Given 10/18/2011 9:00 PM CDT 10/20/2011 8:37 PM CDT 10 mg donepezil (ARICEPT) tablet 10 mg Given 10 mg, Oral, AT BEDTIME DAILY, First dose on Mon10/18/11 at 2100, Until Discontinued 10 mg Given 10/19/2011 9:15 PM CDT 10 mg Given 10/18/2011 9:00 PM CDT 10/21/2011 10:24 AM CDT 1 tablet HYDROcodone/acetaminophen (VICODIN) Given 5/500 mg tablet 1 Tab 1 tablet, Oral, EVERY 4 HOURS PRN, Starting Mon10/18/11 at 1416, Until Mon10/21/11 at 1346, Moderate Pain, TOTAL ACETAMINOPHEN DOSE NOT TO EXCEED 4GM DAILY NOTE: This is a HIGH ALERT Medication., 1 tablet Given 10/19/2011 7:30 PM CDT 1 tablet Given 10/19/2011 8:21 AM CDT 10/21/2011 9:05 AM CDT 100 mcg levothyroxine (SYNTHROID) tablet 100 mcg Given 100 mcg, Oral, DAILY, First dose on Mon10/18/11 at 1845, Until Discontinued 100 mcg Given 10/20/2011 8:55 AM CDT 100 mcg Given 10/19/2011 9:00 AM CDT 10/21/2011 9:05 AM CDT 100 mg losartan (COZAAR) tablet 100 mg Given 100 mg, Oral, DAILY, First dose on Mon10/18/11 at 1845, Until Discontinued 100 mg Given 10/20/2011 8:55 AM CDT 100 mg Given 10/19/2011 9:00 AM CDT 10/21/2011 11:34 AM CDT [address] (PROTONIX) tablet 40 mg Given 40 mg, Oral, TWICE DAILY, First dose on Mon10/18/11 at 2100, Until Discontinued, Do not crush or chew tablet., 40 mg Given 10/20/2011 8:37 PM CDT 40 mg Given 10/20/2011 11:00 AM CDT 10/18/2011 6:45 PM CDT 0 mg rivaroxaban (XARELTO) tablet 20 mg Given - See 20 mg, Oral, DAILY WITH DINNER, First OR/Proc dose on Mon10/18/11 at 1845, Until Flowsheet Discontinued, Administer with food. NOTE: This is a HIGH ALERT Medication., 10/21/2011 9:05 AM CDT 100 mg sertraline (ZOLOFT) tablet 100 mg Given 100 mg, Oral, DAILY, First dose on Mon10/18/11 at 1845, Until Discontinued 100 mg Given 10/20/2011 8:55 AM CDT 100 mg Given 10/19/2011 9:00 AM CDT 10/18/2011 10:00 AM CDT 20 mL/hr sodium chloride 0.45 % infusion Given - New 1,000 mL, Intravenous, at 20 mL/hr, Bag CONTINUOUS, Starting Mon10/18/11 at 1000, Until Mon10/19/11 at 0638, Admission/Obs/Extended Recovery 10/21/2011 9:05 AM CDT 120 mg sotalol AF (BETAPACE AF) tablet 120 mg Given 120 mg, Oral, TWICE DAILY, First dose on Mon10/19/11 at 0900, Until Discontinued 120 mg Given 10/20/2011 8:37 PM CDT 120 mg Given 10/20/2011 8:55 AM CDT 10/18/2011 8:15 PM CDT 80 mg sotalol AF (BETAPACE AF) tablet 80 mg Given 80 mg, Oral, ONCE, 1 dose, Mon10/18/11 at 201410/19/2011 9:30 PM CDT 15 mg temazepam (RESTORIL) capsule 15 mg Given 15 mg, Oral, AT BEDTIME PRN, Starting Mon10/18/11 at 0948, Until Mon10/21/11 at 1346, Insomnia, Admission/Obs/Extended Recovery documented in this encounter
--- OUTSIDE RECORDS SUMMARY | 2018-12-05 14:52 | XMS REPORT | Encounter Summary ---
Author Author [place] [facility] [place] Address Unknown Phone Unavailable Care Team Providers Care Machine Captain Name Role Phone Dorian Muse MD Unavailable Dagmar Lopes MD PCP Reason for Visit * Auth/Cert Referred By Contact Referred To Contact Status Reason Specialty Diagnoses / Procedures Hc5 [address] [place] [address] Diagnoses ATRIAL FIBRILLATION P rocedures INSERT PERMANENT PM AND ATRIAL AND VENTRICULAR LEADS Encounter Details Care Team Description Date Type Department Ernesto Sosa MD [address] [facility] [place], [place] [id number] REMOVAL CARDIAC EVENT RECORDER 10/18/2011 Surgery [facility] [address] [place] [address] Social History Date Tobacco Use Types Packs/Day [...] documented in this encounter Discharge Summaries * Ibrahim Andree - 10/21/2011 8:46 AM CDT Physician Discharge [...] If so, please call the hospital at [phone] and ask the folder stitcher operator to transfer you to the office of your discharge attending physician, or to page the doctor director of agronomy (after 4:30 PM or on weekends or holidays). Discharging attending physician: ERNESTO SOSA [[id number]] May resume normal activity in: Do not [...] sling at night for the first w telida. No strenuous activity with the affected arm [...] Attention: Route to Scheduling Location of Appointment [facility] / Mon-Mon REQUEST FOR CARDIOLOGY APPOINTMENT Standing Status: Future Standing Exp. Date: 10/17/12 Scheduling Attention: Route to Scheduling Schedule OV with (1st choice Provider) Ernesto Sosa M.D. Location of Appointment [facility] / Mon-Mon Current Discharge Medication [...] tablet Take 15 mg by mouth daily. [place]-3 Acid Ethyl Esters (LOVAZA) 1 gram Cap [...] 100 mcg tablet by mouth daily. 04/11/2012 [place]-3 Acid Ethyl Esters Take 1 Cap by [...] 10/21/2011 10:12 AM CDT Rx faxed to [facility] per pt request. * Laxmi Lam [...] Cardiology Cl in by Dr. Gruber from [place], [place]. She is a pleasant 76-year-old female [...] Near syncope 09/16/2011 09/14/11 hospital admission to [facility] in [place], [place]. Reveal device [id number] implanted by Allyn Petit MD. 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 Medical sakina tment, started Plavix. 09/14/11 Admitted to [facility] ( [facility]) with CP & palpitations. Stress test [...] tablet Take 15 mg by mouth daily. [place]-3 Acid Ethyl Esters (LOVAZA) 1 gram Cap [...] rhythm Rate 67, first degree AV block, VT 276, normal axi s. Assessment and Plan [...] interim. The patient will be placed on Martha xa once her hemorrhoid issue is sorted [...] Miscellaneous Notes * Care Plan - Laxmi Lma RN - 10/21/2011 1:00 PM CDT Problem: [...] stay after you get home. If so, zee timmons call the hospital at [phone] or [phone] ([facility]) and ask the ope rator to transfer you to the office of your discharge attending physician, or to page the doctor director of agronomy (after 4:30 PM or on weekends or holidays). Discharging attending physician: ERNESTO SOSA [[id number]] May resume normal activity in: Do not [...] sling at night for the first w telida. No strenuous activity with the affected arm [...] Attention: Route to Scheduling Location of Appointment [facility] / Mon-Mon REQUEST FOR CARDIOLOGY APPOINTMENT Standing Status: Future Standing Exp. Date: 10/17/12 Scheduling Attention: Route to Scheduling Schedule OV with (1st choice Provider) Ernesto Sosa M.D. Location of Appointment [facility] / Mon-Mon Current Discharge Medication [...] tablet Take 15 mg by mouth daily. [place]-3 Acid Ethyl Esters (LOVAZA) 1 gram Cap [...] she lives alone in an [place] Dtrs live nearby.Pt has 3 dtrs. Pt was transferred here from [facility] in [place] Pt has Medicare and Medicaid which covers meds. Pt has had H H in past after hip and knee surgeries but none recently.Neither dtr nor pt reca ll name of agency.Discussed with LOCK MASTER.No HH needs indicated.SW# left with pt shoul d needs arise.HANS Stacy,CCM * Care Plan - Luiza Escalante - 10/19/2011 9:00 PM CDT Problem: [...] (11/25/2011 1:57 PM CDT) Generator OTHER OUTSIDE Joint Cutter LAB Other Generator Model REVO MRI RVDR01 OTHER OUTSIDE # LAB Generator [id number] OTHER OUTSIDE Serial # LAB Generator 10/18/2011 [...] OUTSIDE Indicator LAB Generator Medtronic OTHER OUTSIDE Joint Cutter LAB Generator No OTHER OUTSIDE Investigational LAB Wireless No OTHER OUTSIDE Generator LAB Device Type DDD-PM OTHER OUTSIDE LAB Other Implant OTHER OUTSIDE Info LAB Atrial Lead OTHER OUTSIDE Joint Cutter LAB Other Atrial Lead CAPSUREFIX MRI SURESCAN OTHER OUTSIDE Model # 5086-52 LAB Atrial Lead [id number] OTHER OUTSIDE Serial # LAB Atrial Lead 10/18/2011 OTHER OUTSIDE Implant Date LAB Atrial Lead OTHER OUTSIDE Location Other LAB Atrial Lead OTHER OUTSIDE Polarity Other LAB Atrial Lead 10 OTHER OUTSIDE Diaph. LAB Stimulation Atrial Lead Medtronic OTHER OUTSIDE Joint Cutter LAB Atrial Lead No OTHER OUTSIDE Investigational LAB Atrial Lead active fixation OTHER OUTSIDE Fixation LAB Atrial Lead right atrial appendage OTHER OUTSIDE Location LAB Atrial Lead Pin IS1 OTHER OUTSIDE Connector LAB Atrial Lead Bipolar OTHER OUTSIDE Polarity LAB RV Lead OTHER OUTSIDE Joint Cutter LAB Other RV Lead Model # CAPSUREFIX MRI SURESCAN OTHER OUTSIDE 5086-58 LAB RV Lead Serial [id number] OTHER OUTSIDE # LAB RV Lead Implant 10/18/2011 OTHER OUTSIDE Date LAB RV Lead OTHER OUTSIDE Location Other LAB RV Lead Diaph. 10 OTHER OUTSIDE Stimulation LAB RV Lead Medtronic OTHER OUTSIDE Joint Cutter LAB RV Lead No OTHER OUTSIDE Investigational LAB RV Lead active fixation OTHER OUTSIDE Fixation LAB RV Lead RV low septum OTHER OUTSIDE Location LAB RV Lead Pin IS1 OTHER OUTSIDE Connector ICD LAB RV Lead Coil OTHER OUTSIDE LAB LV Lead OTHER OUTSIDE Joint Cutter LAB Other LV Lead Model # OTHER OUTSIDE LAB LV Lead Serial OTHER OUTSIDE # LAB LV Lead Implant OTHER OUTSIDE Date LAB LV Lead OTHER OUTSIDE Location Other LAB LV Lead OTHER OUTSIDE Polarity Other LAB LV Lead OTHER OUTSIDE Configuration LAB Other LV Lead OTHER OUTSIDE Joint Cutter LAB LV Lead OTHER OUTSIDE Investigational LAB [...] rhythm NSR at 80 bpm, -VS 42.8%, -[employer] HAY SORTER 0.5%, AP-VS 56.1%, AP-[employer] HAY SORTER 0.6%. PVC singles 2.1 per hour, runs [...] rhythm NSR at 80 bpm, -VS 42.8%, -ARCHERY [employer]MENT HAY SORTER 0.5%, AP-VS 56.1%, AP-ARCH[employer] HAY SORTER 0.6%. PVC singles 2.1 per hour, runs 0.1 per hour. Pt activity 1.4 hr.day. No permanent programming changes as pt is 1 month out from implant. Will follow up to enroll pt with [facility]. Report given to RAD. See attached Paceart report titled HRM data sheets to see full Paceart report./mkm Performing Organization Address City/[facility] Phone Number OTHER OUTSIDE LAB * POC GLUCOSE (10/21/2011 10:49 AM CDT) Glucose, POC 102 (H) 70 - 100 MG/DL [facility] RESULTS Specimen Performing Organization Address [facility] Phone Number [facility] RESULTS * POC GLUCOSE (10/21/2011 7:07 AM CDT) Glucose, POC 113 (H) 70 - 100 MG/DL [facility] RESULTS Specimen Performing Organization Address [facility] Phone Number [facility] RESULTS * MAGNESIUM (10/21/2011 4:17 AM CDT) Magnesium 2.0 1.6 - 2.6 MG/DL [facility] RESULTS Specimen Blood - Blood Performing Organization Address [facility] Phone Number [facility] RESULTS * BASIC [...] >60 ML/MIN/1.73 SQM [facility] RESULTS Comment: [place] The eGFR is not validated for use in drug dosing adjustments.Continue to use estimated creatinine clearance per dosing reference text.Please contact the Clinical Pharmacist for questions. eGFR >60 >60 ML/MIN/1.73 SQM [facility] RESULTS [place] Comment: The eGFR is not validated for use in drug dosing adjustments.Continue to use estimated creatinine clearance per dosing reference text.Please contact the Clinical Pharmacist for questions. Specimen Blood - Blood Performing Organization Address [facility] Phone Number [facility] RESULTS * POC GLUCOSE (10/21/2011 3:24 AM CDT) Glucose, POC 102 (H) 70 - 100 MG/DL [facility] RESULTS Specimen Performing Organization [facility] Phone Number LAB RESULTS * POC GLUCOSE (10/20/2011 9:27 PM CDT) Glucose, POC 136 (H) 70 - 100 MG/DL [facility] RESULTS Specimen Performing Organization Address [facility] Phone Number LAB RESULTS * POC GLUCOSE (10/20/2011 4:43 PM CDT) Glucose, POC 106 (H) 70 - 100 MG/DL [facility] RESULTS Specimen Performing Organization Address [facility] Phone Number LAB RESULTS * POC GLUCOSE (10/20/2011 10:35 AM CDT) Glucose, POC 71 70 - 100 MG/DL [facility] RESULTS Specimen Performing Organization Address [facility] Phone Number LAB RESULTS * POC GLUCOSE (10/20/2011 7:13 AM CDT) Glucose, POC 109 (H) 70 - 100 MG/DL [facility] RESULTS Specimen Performing Organization Address [facility] Number LAB RESULTS * MAGNESIUM (10/20/2011 4:15 AM CDT) Magnesium 2.0 1.6 - 2.6 MG/DL [facility] RESULTS Specimen Blood - Blood Performing Organization Address [facility] Number LAB RESULTS * BASIC METABOLIC [...] >60 ML/MIN/1.73 SQM [facility] RESULTS Comment: [place] The eGFR is not validated for use in drug dosing adjustments.Continue to use estimated creatinine clearance per dosing reference text.Please contact the Clinical Pharmacist for questions. eGFR >60 >60 ML/MIN/1.73 SQM [facility] RESULTS [place] Comment: The eGFR is not validated for use in drug dosing adjustments.Continue to use estimated creatinine clearance per dosing reference text.Please contact the Clinical Pharmacist for questions. Specimen Blood - Blood Performing Organization Address [facility]/[place] Phone Number LAB RESULTS * POC GLUCOSE (10/20/2011 3:48 AM CDT) Glucose, POC 98 70 - 100 MG/DL [facility] RESULTS Specimen Performing Organization Address [facility] Phone Number [facility] RESULTS * POC GLUCOSE (10/19/2011 9:18 PM CDT) Glucose, POC 91 70 - 100 MG/DL [facility] LAB RESULTS Specimen Performing Organization Address [facility] Phone Number [facility] RESULTS * POC GLUCOSE (10/19/2011 5:02 PM CDT) Glucose, POC 112 (H) 70 - 100 MG/DL [facility] RESULTS Specimen Performing Organization Address [facility] Phone Number LAB RESULTS * DEVICE EVALUATION - PPM (10/19/2011 4:33 PM CDT) Generator OTHER OUTSIDE Joint Cutter LAB Other Generator Model REVO MRI RVDR01 OTHER OUTSIDE # LAB Generator [id number] OTHER OUTSIDE Serial # LAB Generator 10/18/2011 [...] OUTSIDE Indicator LAB Generator Medtronic OTHER OUTSIDE Joint Cutter LAB Generator No OTHER OUTSIDE Investigational LAB Wireless No OTHER OUTSIDE Generator LAB Device Type DDD-PM OTHER OUTSIDE LAB Other Implant OTHER OUTSIDE Info LAB Atrial Lead OTHER OUTSIDE Joint Cutter LAB Other Atrial Lead CAPSUREFIX MRI SURESCAN OTHER OUTSIDE Model # 5086-52 LAB Atrial Lead [id number] OTHER OUTSIDE Serial # LAB Atrial Lead 10/18/2011 OTHER OUTSIDE Implant Date LAB Atrial Lead OTHER OUTSIDE Location Other LAB Atrial Lead OTHER OUTSIDE Polarity Other LAB Atrial Lead 10 OTHER OUTSIDE Diaph. LAB Stimulation Atrial Lead Medtronic OTHER OUTSIDE Joint Cutter LAB Atrial Lead No OTHER OUTSIDE Investigational LAB Atrial Lead active fixation OTHER OUTSIDE Fixation LAB Atrial Lead right atrial appendage OTHER OUTSIDE Location LAB Atrial Lead Pin IS1 OTHER OUTSIDE Connector LAB Atrial Lead Bipolar OTHER OUTSIDE Polarity LAB RV Lead OTHER OUTSIDE Joint Cutter LAB Other RV Lead Model # CAPSUREFIX MRI SURESCAN OTHER OUTSIDE 5086-58 LAB RV Lead Serial [id number] OTHER OUTSIDE # LAB RV Lead Implant 10/18/2011 OTHER OUTSIDE Date LAB RV Lead OTHER OUTSIDE Location Other LAB RV Lead Diaph. 10 OTHER OUTSIDE Stimulation LAB RV Lead Medtronic OTHER OUTSIDE Joint Cutter LAB RV Lead No OTHER OUTSIDE Investigational LAB RV Lead active fixation OTHER OUTSIDE Fixation LAB RV Lead RV low septum OTHER OUTSIDE Location LAB RV Lead Pin IS1 OTHER OUTSIDE Connector ICD LAB RV Lead Coil OTHER OUTSIDE LAB LV Lead OTHER OUTSIDE Joint Cutter LAB Other LV Lead Model # OTHER OUTSIDE LAB LV Lead Serial OTHER OUTSIDE # LAB LV Lead Implant OTHER OUTSIDE Date LAB LV Lead OTHER OUTSIDE Location Other LAB LV Lead OTHER OUTSIDE Polarity Other LAB LV Lead OTHER OUTSIDE Configuration LAB Other LV Lead OTHER OUTSIDE Joint Cutter LAB LV Lead OTHER OUTSIDE Investigational LAB [...] POC 117 (H) 70 - 100 MG/DL LAB RESULTS Specimen Performing Organization Address [facility]/[place] Phone Number LAB RESULTS * CHEST 2 VIEWS (10/19/2011 6:02 AM CDT) Exam Status [facility] SIGNED REPORT Exam EXAM: [facility] TWO-VIEW CHEST Clinical History: 76-year-old female post [...] upper anterior chest wall. Impression CHEST 2 [facility] VIEWS IMPRESSION: NO ACUTE CARDIOPULMONARY PROCESS. SMALL TO MODERATE-SIZED HIATAL HERNIA. LEFT SUBCLAVIAN BIPOLAR PACER LEADS IN PLACE, WHICH APPEAR TO BE INTACT, WITH BATTERY PACK IN LEFT UPPER ANTERIOR CHEST WALL. Electronically signed on: :10AM by PIETER MEDRANO M.D. Specimen Impressions Performed At CHEST 2 VIEWS IMPRESSION: [facility] NO ACUTE CARDIOPULMONARY PROCESS. SMALL TO MODERATE-SIZED HIATAL HERNIA. LEFT SUBCLAVIAN BIPOLAR PACER LEADS IN PLACE, WHICH APPEAR TO BE INTACT, WITH BATTERY PACK IN LEFT UPPER ANTERIOR CHEST WALL. Electronically signed on: 20119:10AM by PIETER MEDRANO M.D. Narrative Performed At EXAM: [facility] TWO-VIEW CHEST Clinical History: 76-year-old female post [...] upper anterior chest wall. Performing Organization Address [facility]/[place] Phone Number [facility] * POC GLUCOSE (10/19/2011 4:11 AM CDT) Glucose, POC 138 (H) 70 - 100 MG/DL [facility] RESULTS Specimen Performing Organization Address [facility] Phone Number [facility] LAB RESULTS * MAGNESIUM (10/19/2011 4:00 AM CDT) Magnesium 1.9 1.6 - 2.6 MG/DL [facility] LAB RESULTS Specimen Blood - Blood Performing Organization Address [facility] Phone Number [facility] RESULTS * BASIC [...] >60 ML/MIN/1.73 SQM [facility] RESULTS Comment: [place] The eGFR is not validated for use in drug dosing adjustments.Continue to use estimated creatinine clearance per dosing reference text.Please contact the Clinical Pharmacist for questions. eGFR >60 >60 ML/MIN/1.73 SQM [facility] RESULTS [place] Comment: The eGFR is not validated for [...] (10/18/2011 2:04 PM CDT) Generator OTHER OUTSIDE Joint Cutter LAB Other Generator Model REVO MRI RVDR01 OTHER OUTSIDE # LAB Generator [id number] OTHER OUTSIDE Serial # LAB Generator 10/18/2011 [...] OUTSIDE Indicator LAB Generator Medtronic OTHER OUTSIDE Joint Cutter LAB Generator No OTHER OUTSIDE Investigational LAB Wireless No OTHER OUTSIDE Generator LAB Device Type DDD-PM OTHER OUTSIDE LAB Other Implant OTHER OUTSIDE Info LAB Atrial Lead OTHER OUTSIDE Joint Cutter LAB Other Atrial Lead CAPSUREFIX MRI SURESCAN OTHER OUTSIDE Model # 5086-52 LAB Atrial Lead [id number] OTHER OUTSIDE Serial # LAB Atrial Lead 10/18/2011 OTHER OUTSIDE Implant Date LAB Atrial Lead OTHER OUTSIDE Location Other LAB Atrial Lead OTHER OUTSIDE Polarity Other LAB Atrial Lead 10 OTHER OUTSIDE Diaph. LAB Stimulation Atrial Lead Medtronic OTHER OUTSIDE Joint Cutter LAB Atrial Lead No OTHER OUTSIDE Investigational LAB Atrial Lead active fixation OTHER OUTSIDE Fixation LAB Atrial Lead right atrial appendage OTHER OUTSIDE Location LAB Atrial Lead Pin IS1 OTHER OUTSIDE Connector LAB Atrial Lead Bipolar OTHER OUTSIDE Polarity LAB RV Lead OTHER OUTSIDE Joint Cutter LAB Other RV Lead Model # CAPSUREFIX MRI SURESCAN OTHER OUTSIDE 5086-58 LAB RV Lead Serial [id number] OTHER OUTSIDE # LAB RV Lead Implant 10/18/2011 OTHER OUTSIDE Date LAB RV Lead OTHER OUTSIDE Location Other LAB RV Lead Diaph. 10 OTHER OUTSIDE Stimulation LAB RV Lead Medtronic OTHER OUTSIDE Joint Cutter LAB RV Lead No OTHER OUTSIDE Investigational LAB RV Lead active fixation OTHER OUTSIDE Fixation LAB RV Lead RV low septum OTHER OUTSIDE Location LAB RV Lead Pin IS1 OTHER OUTSIDE Connector ICD LAB RV Lead Coil OTHER OUTSIDE LAB LV Lead OTHER OUTSIDE Joint Cutter LAB Other LV Lead Model # OTHER OUTSIDE LAB LV Lead Serial OTHER OUTSIDE # LAB LV Lead Implant OTHER OUTSIDE Date LAB LV Lead OTHER OUTSIDE Location Other LAB LV Lead OTHER OUTSIDE Polarity Other LAB LV Lead OTHER OUTSIDE Configuration LAB Other LV Lead OTHER OUTSIDE Joint Cutter LAB LV Lead OTHER OUTSIDE Investigational LAB [...] 10/18/2011 OTHER OUTSIDE LAB Study Number: [id number] [employer] Artistic Director: Ernesto Sosa MD Clerical Manager: Ewelina Egan MD Procedure: Implantable Loop Recorder removale Procedure: The procedure was performed in the EP lab.This procedure was done after pacemaker implantation which is reported separately. Heart rhythm, blood pressure, oxygen saturation and level of consciousness was assessed prior to, during, and after the procedure.Medications were administered by a trained staff who in turn were supervised by vt.Following sterile prep and drape, a 1 inch [...] was performed under direct supervision of staff development coach who was present throughout the procedure. Procedure Note Ernesto Sosa MD - 10/18/2011 9:44 PM CDT Date of procedure: 10/18/2011 Study Number: [id number] [employer] Artistic Director: Ernesto Sosa MD Clerical Manager: Ewelina Egan MD Procedure: Implantable Loop Recorder removale Procedure: The procedure was performed in the EP lab. This procedure was done after pacemaker implantation which is reported separately. Heart rhythm, blood pressure, oxygen saturation and level of consciousness was assessed prior to, during, and after the procedure. Medications were administered by a trained staff who in turn were supervised by vt. Following sterile prep and drape, a 1 [...] was performed under direct supervision of staff development coach who was present throughout the procedure. Performing Organization Address [facility]/[place] Phone Number OTHER OUTSIDE LAB * MAGNESIUM (10/18/2011 10:15 AM CDT) Magnesium 2.1 1.6 - 2.6 MG/DL [facility] LAB RESULTS Specimen Performing Organization Address [facility]/[place] Phone Number [facility] RESULTS * FREE T4-FREE THYROXINE (10/18/2011 10:15 AM CDT) T4-Free 0.8 0.6 - 1.6 NG/DL [facility] RESULTS Specimen Performing Organization Address [facility]/[place] Phone Number [facility] LAB RESULTS * TSH WITH FREE T4 REFLEX (10/18/2011 10:15 AM CDT) TSH 7.470 (H) 0.35 - 5.00 MCU/ML [facility] RESULTS Specimen Blood - Blood Performing Organization Address [facility] Phone Number [facility] RESULTS * COMPREHENSIVE [...] >60 ML/MIN/1.73 SQM [facility] RESULTS Comment: [place] The eGFR is not validated for use in drug dosing adjustments.Continue to use estimated creatinine clearance per dosing reference text.Please contact the Clinical Pharmacist for questions. eGFR >60 >60 ML/MIN/1.73 SQM [facility] RESULTS [place] Comment: The eGFR is not validated for [...] RESULTS documented in this encounter Visit Diagnoses Not on filedocumented in this encounter
--- OUTSIDE RECORDS SUMMARY | 2018-12-05 14:53 | XMS REPORT | Encounter Summary ---
Author Author [facility] Organization [facility] Address Unknown Phone Unavailable Care Team Providers Care Attic Blower Name Role Phone Dorian Muse MD Unavailable Dagmar Lopes MD PCP Reason for Visit * Auth/Cert Referred By Contact Referred To Contact Status Reason Specialty Diagnoses / Procedures [id number] [address] [place] [address] Diagnoses ATRIAL FIBRILLATION P rocedures INSERT PERMANENT PM AND ATRIAL AND VENTRICULAR LEADS Encounter Details Care Team Description Date Type Department Ernesto Sosa MD [address] [facility] [place] [address] [phone] 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 [address] [place] [address] Social History Date Tobacco Use Types Packs/Day [...] If so, please call the hospital at [phone] and ask the pocket and pulley machine operator to transfer you to the office of your discharge attending physician, or to page the doctor refinery operator polymerization plant (after 4:30 PM or on weekends or holidays). Discharging attending physician: ERNESTO SOSA [[id number]] May resume normal activity in: Do not [...] sling at night for the first w lower brule. No strenuous activity with the affected arm [...] Attention: Route to Scheduling Location of Appointment [facility] / Mon-Mon REQUEST FOR CARDIOLOGY APPOINTMENT Standing Status: Future Standing Exp. Date: 10/17/12 Scheduling Attention: Route to Scheduling Schedule OV with (1st choice Provider) Ernesto Sosa M.D. Location of Appointment [facility] / Mon-Mon Current Discharge Medication [...] tablet Take 15 mg by mouth daily. Manchester-3 Acid Ethyl Esters (LOVAZA) 1 gram Cap [...] 100 mcg tablet by mouth daily. 04/11/2012 Manchester-3 Acid Ethyl Esters Take 1 Cap by [...] 10/21/2011 10:12 AM CDT Rx faxed to [facility] per pt request. * Laxmi Lam [...] DC home today. Begin Xarelto Monday * Enresto Sosa MD - 10/20/2011 9:23 AM CDT [...] Cardiology Cl in by Dr. Gruber from [place], [place]. She is a pleasant 76-year-old female [...] hospital admission to [facility] in [place], [place]. Reveal device 9 [id number] implanted by Allyn Petit MD. 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 Medical sakina tment, started Plavix. 09/14/11 Admitted to [facility] ( [facility] [place]) with CP & palpitations. Stress test Lexiscan Myoview) showed no ischemia. EF 65% Echocardiogram: EF 70%. Mild LVH. La size 4.3cm. Mitral valve with m yxomatous degeneration, mild MR. Cardiac device in situ, other 08/18/2011 09/16/11 Reveal device 9529, Toptal. Current Medications (including today's revisions) aspirin EC [...] tablet Take 15 mg by mouth daily. Manchester-3 Acid Ethyl Esters (LOVAZA) 1 gram Cap [...] so, zee timmons call the hospital at [phone] or [phone] ([facility]) and ask the ope rator to transfer you to the office of your discharge attending physician, or to page the doctor refinery operator polymerization plant (after 4:30 PM or on weekends or holidays). Discharging attending physician: ERNESTO SOSA [[id number]] May resume normal activity in: Do not [...] sling at night for the first w lower brule. No strenuous activity with the affected arm [...] Attention: Route to Scheduling Location of Appointment [facility] / Mon-Mon REQUEST FOR CARDIOLOGY APPOINTMENT Standing Status: Future Standing Exp. Date: 10/17/12 Scheduling Attention: Route to Scheduling Schedule OV with (1st choice Provider) Ernesto Sosa M.D. Location of Appointment [facility] / Mon-Mon Current Discharge Medication [...] tablet Take 15 mg by mouth daily. Manchester-3 Acid Ethyl Esters (LOVAZA) 1 gram Cap [...] she lives alone in [place] Dtrs live nearby.Pt has 3 dtrs. Pt was transferred here from [facility] [place] in [place], [place] Pt has Medicare and Medicaid which covers meds. Pt has had H H in past after hip and knee surgeries but none recently.Neither dtr nor pt reca ll name of agency.Discussed with SPEECH CORRECTION ASSISTANT.No HH needs indicated.SW# left with pt shoul [...] (11/25/2011 1:57 PM CDT) Generator OTHER OUTSIDE [employer] LAB Other Generator Model REVO MRI RVDR01 OTHER OUTSIDE # LAB Generator [id number] OTHER OUTSIDE Serial # LAB Generator 10/18/2011 [...] OUTSIDE Indicator LAB Generator Medtronic OTHER OUTSIDE [employer] LAB Generator No OTHER OUTSIDE Investigational LAB Wireless No OTHER OUTSIDE Generator LAB Device Type DDD-PM OTHER OUTSIDE LAB Other Implant OTHER OUTSIDE Info LAB Atrial Lead OTHER OUTSIDE [employer] LAB Other Atrial Lead CAPSUREFIX MRI SURESCAN OTHER OUTSIDE Model # 5086-52 LAB Atrial Lead [id number] OTHER OUTSIDE Serial # LAB Atrial Lead 10/18/2011 OTHER OUTSIDE Implant Date LAB Atrial Lead OTHER OUTSIDE Location Other LAB Atrial Lead OTHER OUTSIDE Polarity Other LAB Atrial Lead 10 OTHER OUTSIDE Diaph. LAB Stimulation Atrial Lead Medtronic OTHER OUTSIDE [employer] Architect LAB Atrial Lead No OTHER OUTSIDE Investigational LAB Atrial Lead active fixation OTHER OUTSIDE Fixation LAB Atrial Lead right atrial appendage OTHER OUTSIDE Location LAB Atrial Lead Pin IS1 OTHER OUTSIDE Connector LAB Atrial Lead Bipolar OTHER OUTSIDE Polarity LAB RV Lead OTHER OUTSIDE [employer] LAB Other RV Lead Model # CAPSUREFIX MRI SURESCAN OTHER OUTSIDE 5086-58 LAB RV Lead Serial [id number] OTHER OUTSIDE # LAB RV Lead Implant 10/18/2011 OTHER OUTSIDE Date LAB RV Lead OTHER OUTSIDE Location Other LAB RV Lead Diaph. 10 OTHER OUTSIDE Stimulation LAB RV Lead Medtronic OTHER OUTSIDE [employer] LAB RV Lead No OTHER OUTSIDE Investigational LAB RV Lead active fixation OTHER OUTSIDE Fixation LAB RV Lead RV low septum OTHER OUTSIDE Location LAB RV Lead Pin IS1 OTHER OUTSIDE Connector ICD LAB RV Lead Coil OTHER OUTSIDE LAB LV Lead OTHER OUTSIDE [employer] LAB Other LV Lead Model # OTHER OUTSIDE LAB LV Lead Serial OTHER OUTSIDE # LAB LV Lead Implant OTHER OUTSIDE Date LAB LV Lead OTHER OUTSIDE Location Other LAB LV Lead OTHER OUTSIDE Polarity Other LAB LV Lead OTHER OUTSIDE Configuration LAB Other LV Lead OTHER OUTSIDE [employer] LAB LV Lead OTHER OUTSIDE Investigational LAB [...] rhythm NSR at 80 bpm, -VS 42.8%, -EXECUTIVE COORDINATOR 0.5%, AP-VS 56.1%, AP-EXECUTIVE COORDINATOR 0.6%. PVC singles 2.1 per hour, runs [...] rhythm NSR at 80 bpm, -VS 42.8%, -EXECUTIVE COORDINATOR 0.5%, AP-VS 56.1%, AP-EXECUTIVE COORDINATOR 0.6%. PVC singles 2.1 per hour, runs 0.1 per hour. Pt activity 1.4 hr.day. No permanent programming changes as pt is 1 month out from implant. Will follow up to enroll pt with [facility]. Report given to RAD. See attached Paceart report titled HRM data sheets to see full Paceart report./mkm Performing Organization Address [facility] Phone Number OTHER OUTSIDE LAB * POC GLUCOSE (10/21/2011 10:49 AM CDT) Glucose, POC 102 (H) 70 - 100 MG/DL [facility] RESULTS Specimen Performing Organization Address [facility] Phone Number [facility] RESULTS * POC GLUCOSE (10/21/2011 7:07 AM CDT) Glucose, POC 113 (H) 70 - 100 MG/DL [facility] RESULTS Specimen Performing Organization Address [facility] Phone Number [facility] RESULTS * MAGNESIUM (10/21/2011 4:17 AM CDT) Magnesium 2.0 1.6 - 2.6 MG/DL [facility] RESULTS Specimen Blood - Blood Performing Organization Address [facility] Phone Number [facility] RESULTS * BASIC [...] >60 ML/MIN/1.73 SQM [facility] RESULTS Comment: Russian The eGFR is not validated for use in drug dosing adjustments.Continue to use estimated creatinine clearance per dosing reference text.Please contact the Clinical Pharmacist for questions. eGFR >60 >60 ML/MIN/1.73 SQM [facility] RESULTS Russian Comment: The eGFR is not validated for use in drug dosing adjustments.Continue to use estimated creatinine clearance per dosing reference text.Please contact the Clinical Pharmacist for questions. Specimen Blood - Blood Performing Organization Address [facility] Phone Number [facility] RESULTS * POC GLUCOSE (10/21/2011 3:24 AM CDT) Glucose, POC 102 (H) 70 - 100 MG/DL [facility] RESULTS Specimen Performing Organization Address [facility] Phone Number LAB RESULTS * POC GLUCOSE (10/20/2011 9:27 PM CDT) Glucose, POC 136 (H) 70 - 100 MG/DL [facility] RESULTS Specimen Performing Organization Address [facility] Phone Number LAB RESULTS * POC GLUCOSE (10/20/2011 4:43 PM CDT) Glucose, POC 106 (H) 70 - 100 MG/DL [facility] RESULTS Specimen Performing Organization Address [facility] Phone Number LAB RESULTS * POC GLUCOSE (10/20/2011 10:35 AM CDT) Glucose, POC 71 70 - 100 MG/DL [facility] RESULTS Specimen Performing Organization Address [facility] Phone Number LAB RESULTS * POC GLUCOSE (10/20/2011 7:13 AM CDT) Glucose, POC 109 (H) 70 - 100 MG/DL [facility] RESULTS Specimen Performing Organization Address [facility] Phone Number LAB RESULTS * MAGNESIUM (10/20/2011 4:15 AM CDT) Magnesium 2.0 1.6 - 2.6 MG/DL [facility] RESULTS Specimen Blood - Blood Performing Organization Address [facility] Number LAB RESULTS * BASIC METABOLIC [...] >60 ML/MIN/1.73 SQM [facility] RESULTS Comment: Russian The eGFR is not validated for use in drug dosing adjustments.Continue to use estimated creatinine clearance per dosing reference text.Please contact the Clinical Pharmacist for questions. eGFR >60 >60 ML/MIN/1.73 SQM [facility] RESULTS Russian Comment: The eGFR is not validated for use in drug dosing adjustments.Continue to use estimated creatinine clearance per dosing reference text.Please contact the Clinical Pharmacist for questions. Specimen Blood - Blood Performing Organization Address [facility] Phone Number LAB RESULTS * POC GLUCOSE (10/20/2011 3:48 AM CDT) Glucose, POC 98 70 - 100 MG/DL [facility] RESULTS Specimen Performing Organization Address [facility] Phone Number LAB RESULTS * POC GLUCOSE (10/19/2011 9:18 PM CDT) Glucose, POC 91 70 - 100 MG/DL [facility] RESULTS Specimen Performing Organization Address [facility] Phone Number LAB RESULTS * POC GLUCOSE (10/19/2011 5:02 PM CDT) Glucose, POC 112 (H) 70 - 100 MG/DL [facility] RESULTS Specimen Performing Organization Address [facility] Phone Number LAB RESULTS * DEVICE EVALUATION - PPM (10/19/2011 4:33 PM CDT) Generator OTHER OUTSIDE [employer] LAB Other Generator Model REVO MRI RVDR01 OTHER OUTSIDE # LAB Generator [id number] OTHER OUTSIDE Serial # LAB Generator 10/18/2011 [...] OUTSIDE Indicator LAB Generator Medtronic OTHER OUTSIDE [employer] LAB Generator No OTHER OUTSIDE Investigational LAB Wireless No OTHER OUTSIDE Generator LAB Device Type DDD-PM OTHER OUTSIDE LAB Other Implant OTHER OUTSIDE Info LAB Atrial Lead OTHER OUTSIDE [employer] LAB Other Atrial Lead CAPSUREFIX MRI SURESCAN OTHER OUTSIDE Model # 5086-52 LAB Atrial Lead [id number] OTHER OUTSIDE Serial # LAB Atrial Lead 10/18/2011 OTHER OUTSIDE Implant Date LAB Atrial Lead OTHER OUTSIDE Location Other LAB Atrial Lead OTHER OUTSIDE Polarity Other LAB Atrial Lead 10 OTHER OUTSIDE Diaph. LAB Stimulation Atrial Lead Medtronic OTHER OUTSIDE [employer] LAB Atrial Lead No OTHER OUTSIDE Investigational LAB Atrial Lead active fixation OTHER OUTSIDE Fixation LAB Atrial Lead right atrial appendage OTHER OUTSIDE Location LAB Atrial Lead Pin IS1 OTHER OUTSIDE Connector LAB Atrial Lead Bipolar OTHER OUTSIDE Polarity LAB RV Lead OTHER OUTSIDE [employer] LAB Other RV Lead Model # CAPSUREFIX MRI SURESCAN OTHER OUTSIDE 5086-58 LAB RV Lead Serial [id number] OTHER OUTSIDE # LAB RV Lead Implant 10/18/2011 OTHER OUTSIDE Date LAB RV Lead OTHER OUTSIDE Location Other LAB RV Lead Diaph. 10 OTHER OUTSIDE Stimulation LAB RV Lead Medtronic OTHER OUTSIDE [employer] LAB RV Lead No OTHER OUTSIDE Investigational LAB RV Lead active fixation OTHER OUTSIDE Fixation LAB RV Lead RV low septum OTHER OUTSIDE Location LAB RV Lead Pin IS1 OTHER OUTSIDE Connector ICD LAB RV Lead Coil OTHER OUTSIDE LAB LV Lead OTHER OUTSIDE [employer] LAB Other LV Lead Model # OTHER OUTSIDE LAB LV Lead Serial OTHER OUTSIDE # LAB LV Lead Implant OTHER OUTSIDE Date LAB LV Lead OTHER OUTSIDE Location Other LAB LV Lead OTHER OUTSIDE Polarity Other LAB LV Lead OTHER OUTSIDE Configuration LAB Other LV Lead OTHER OUTSIDE [employer] Architect LAB LV Lead OTHER OUTSIDE Investigational LAB [...] [facility] RESULTS Specimen Performing Organization Address [facility] Phone Number [facility] RESULTS * CHEST 2 VIEWS (10/19/2011 6:02 AM CDT) Exam Status [facility] SIGNED REPORT Exam EXAM: [facility] TWO-VIEW CHEST Clinical History: 76-year-old female post [...] upper anterior chest wall. Impression CHEST 2 [facility] VIEWS IMPRESSION: NO ACUTE CARDIOPULMONARY PROCESS. SMALL TO MODERATE-SIZED HIATAL HERNIA. LEFT SUBCLAVIAN BIPOLAR PACER LEADS IN PLACE, WHICH APPEAR TO BE INTACT, WITH BATTERY PACK IN LEFT UPPER ANTERIOR CHEST WALL. Electronically signed on: :10AM by PIETER MEDRANO M.D. Specimen Impressions Performed At CHEST 2 VIEWS IMPRESSION: [facility] NO ACUTE CARDIOPULMONARY PROCESS. SMALL TO MODERATE-SIZED HIATAL HERNIA. LEFT SUBCLAVIAN BIPOLAR PACER LEADS IN PLACE, WHICH APPEAR TO BE INTACT, WITH BATTERY PACK IN LEFT UPPER ANTERIOR CHEST WALL. Electronically signed on: 20119:10AM by PIETER MEDRANO M.D. Narrative Performed At EXAM: [facility] TWO-VIEW CHEST Clinical History: 76-year-old female [...] upper anterior chest wall. Performing Organization Address [facility] Phone Number [facility] * POC GLUCOSE (10/19/2011 4:11 AM CDT) Glucose, POC 138 (H) 70 - 100 MG/DL [facility] RESULTS Specimen Performing Organization Address [facility] Phone Number [facility] RESULTS * MAGNESIUM (10/19/2011 4:00 AM CDT) Magnesium 1.9 1.6 - 2.6 MG/DL [facility] RESULTS Specimen Blood - Blood Performing Organization Address [facility] Phone Number [facility] RESULTS * BASIC [...] >60 ML/MIN/1.73 SQM [facility] RESULTS Comment: Russian The eGFR is not validated for use in drug dosing adjustments.Continue to use estimated creatinine clearance per dosing reference text.Please contact the Clinical Pharmacist for questions. eGFR >60 >60 ML/MIN/1.73 SQM [facility] RESULTS Russian Comment: The eGFR is not validated for [...] (10/18/2011 2:04 PM CDT) Generator OTHER OUTSIDE [employer] LAB Other Generator Model REVO MRI [id number] OTHER OUTSIDE # LAB Generator [id number] OTHER OUTSIDE Serial # LAB Generator 10/18/2011 [...] OUTSIDE Indicator LAB Generator Medtronic OTHER OUTSIDE [employer] LAB Generator No OTHER OUTSIDE Investigational LAB Wireless No OTHER OUTSIDE Generator LAB Device Type DDD-PM OTHER OUTSIDE LAB Other Implant OTHER OUTSIDE Info LAB Atrial Lead OTHER OUTSIDE [employer] LAB Other Atrial Lead CAPSUREFIX MRI SURESCAN OTHER OUTSIDE Model # 5086-52 LAB Atrial Lead [id number] OTHER OUTSIDE Serial # LAB Atrial Lead 10/18/2011 OTHER OUTSIDE Implant Date LAB Atrial Lead OTHER OUTSIDE Location Other LAB Atrial Lead OTHER OUTSIDE Polarity Other LAB Atrial Lead 10 OTHER OUTSIDE Diaph. LAB Stimulation Atrial Lead Medtronic OTHER OUTSIDE [employer] LAB Atrial Lead No OTHER OUTSIDE Investigational LAB Atrial Lead active fixation OTHER OUTSIDE Fixation LAB Atrial Lead right atrial appendage OTHER OUTSIDE Location LAB Atrial Lead Pin IS1 OTHER OUTSIDE Connector LAB Atrial Lead Bipolar OTHER OUTSIDE Polarity LAB RV Lead OTHER OUTSIDE [employer] LAB Other RV Lead Model # CAPSUREFIX MRI SURESCAN OTHER OUTSIDE 5086-58 LAB RV Lead Serial [id number] OTHER OUTSIDE # LAB RV Lead Implant 10/18/2011 OTHER OUTSIDE Date LAB RV Lead OTHER OUTSIDE Location Other LAB RV Lead Diaph. 10 OTHER OUTSIDE Stimulation LAB RV Lead Medtronic OTHER OUTSIDE [employer] LAB RV Lead No OTHER OUTSIDE Investigational LAB RV Lead active fixation OTHER OUTSIDE Fixation LAB RV Lead RV low septum OTHER OUTSIDE Location LAB RV Lead Pin IS1 OTHER OUTSIDE Connector ICD LAB RV Lead Coil OTHER OUTSIDE LAB LV Lead OTHER OUTSIDE [employer] LAB Other LV Lead Model # OTHER OUTSIDE LAB LV Lead Serial OTHER OUTSIDE # LAB LV Lead Implant OTHER OUTSIDE Date LAB LV Lead OTHER OUTSIDE Location Other LAB LV Lead OTHER OUTSIDE Polarity Other LAB LV Lead OTHER OUTSIDE Configuration LAB Other LV Lead OTHER OUTSIDE [employer] LAB LV Lead OTHER OUTSIDE Investigational LAB [...] 10/18/2011 OTHER OUTSIDE LAB Study Number: [id number] Roofer: Ernesto Sosa MD Adolescent Psychiatrist: Ewelina Egan MD Procedure: Implantable Loop Recorder [...] was performed under direct supervision of staff sports book writer who was present throughout the procedure. Procedure Note Ernesto Sosa MD - 10/18/2011 9:44 PM CDT Date of procedure: 10/18/2011 Study Number: [id number] Roofer: Ernesto Sosa MD Adolescent Psychiatrist: Ewelina Egan MD Procedure: Implantable Loop Recorder [...] was performed under direct supervision of staff sports book writer who was present throughout the procedure. Performing Organization Address [facility] Phone Number OTHER OUTSIDE LAB * MAGNESIUM (10/18/2011 10:15 AM CDT) Magnesium 2.1 1.6 - 2.6 MG/DL [facility] RESULTS Specimen Performing Organization Address [facility] Phone Number [facility] RESULTS * FREE T4-FREE THYROXINE (10/18/2011 10:15 AM CDT) T4-Free 0.8 0.6 - 1.6 NG/DL [facility] RESULTS Specimen Performing Organization Address [facility] Phone Number [facility] RESULTS * TSH WITH FREE T4 REFLEX (10/18/2011 10:15 AM CDT) TSH 7.470 (H) 0.35 - 5.00 MCU/ML [facility] RESULTS Specimen Blood - Blood Performing Organization Address [facility] Phone Number [facility] RESULTS * COMPREHENSIVE [...] >60 ML/MIN/1.73 SQM [facility] RESULTS Comment: Russian The eGFR is not validated for use in drug dosing adjustments.Continue to use estimated creatinine clearance per dosing reference text.Please contact the Clinical Pharmacist for questions. eGFR >60 >60 ML/MIN/1.73 SQM [facility] RESULTS Russian Comment: The eGFR is not validated for [...]
--- OUTSIDE RECORDS SUMMARY | 2018-12-05 14:53 | XMS REPORT | Encounter Summary ---
Author Author [facility] Organization [facility] Address Unknown Phone Unavailable Care Team Providers Care Slope Tender Name Role Phone Unverified, Unverified PCP Unavailable Dorian Muse MD Unavailable Dagmar Lopes MD PCP Ernesto Sosa MD 100 Melvin Monterroso MD Unavailable Unavailable Dana Birmingham RN Unavailable Unavailable Severiano Daniel DO Unavailable Yarely Vega MD PCP Encounter Details Care Team Description Date Type Department Maura Jauregui PA-C [address] [id number] A-fib; Cameron rhythm disorder 10/17/2011 Pre-Admit [facility] [address] [address] Social History Date Tobacco Use Types Packs/Day [...] this encounter Visit Diagnoses Diagnosis A-fib (HCC) Atrial fibrillation Cameron rhythm disorder Other specified cardiac dysrhythmias documented in this encounter
--- OUTSIDE RECORDS SUMMARY | 2018-12-05 14:54 | XMS REPORT | Encounter Summary ---
Author Author [facility] Organization [facility] Address Unknown Phone Unavailable Care Team Providers Care Multicultural Services Librarian Name Role Phone Unverified, Unverified PCP Unavailable Dorian Muse MD Unavailable Reason for Visit * Reason Comments Medication Question regarding Xarelto & pre procedure insutructions Encounter Details Care Team Description Date Type Department Duran Rebollar parts counterman Question (regarding Xarelto & pre procedure insutructions) 10/12/2011 Telephone [facility] [address] [place] [address] Social History Date Tobacco Use Types Packs/Day [...] encounter Miscellaneous Notes * Telephone Encounter - Duran eRbollar RN - 10/12/2011 3:01 PM CDT Message copied by DURAN REBOLLAR on MonOct 12, 2011 3:01 PM ------ Spoke to Dipika pryor. Reviewed questions about what medications to take & what not to. She states that her mother had the colonoscopy & the post op instructions say not to take any blood thinners for a week post. I told her to call them back and inquire since that may be a routine instruction. To ask that her heart doctor wants the Xarelto started as soon as possible. She will do so & let us know if it is more than a couple of days. Pt has been off of the asa for a few weeks in prep of colonoscopy as well. SHe verbalized understanding. /maricarmen ----- Message ----- From: Ave Simmons Sent: 10/11/2011 9:26 AM To: Олег Oneal Pt calling regarding some paperwork that was sent to her for her pacemaker. . Thanks documented in this encounter Plan of Treatment Not on filedocumented as of this encounter Visit Diagnoses Not on filedocumented in this encounter
--- OUTSIDE RECORDS SUMMARY | 2018-12-05 14:54 | XMS REPORT | Encounter Summary ---
Author Author [facility] Organization [facility] Address Unknown Phone Unavailable Care Team Providers Care Operations Clerk Name Role Phone Unverified, Unverified PCP Unavailable Dorian Muse MD Unavailable Reason for Visit * Reason Comments Precertification Medicare Encounter Details Care Team Description Date Type Department Billy Francis RN Precertification (Medicare) 10/06/2011 Documentation [facility] [address] [facility] [place] [address] Social History Date Tobacco Use Types Packs/Day Years Used Never Smoker Smokeless Tobacco: Never Used Drinks/Week oz/Week Comments Alcohol Use No Sex Assigned at Date Recorded Not on file Industry Job Start Date Occupation Not on file Not on file Not on file Travel End Travel History Travel Start No recent travel history available. documented as of this encounter Progress Notes * Billy Francis RN - 10/06/2011 3:24 PM CDT Ximena lists Medicare as patient's primary insurance coverage. Pre-certificatio n is not required for hospitalizations. documented in this encounter Plan of Treatment Not on filedocumented as of this encounter Visit Diagnoses Not on filedocumented in this encounter
--- OUTSIDE RECORDS SUMMARY | 2018-12-05 14:54 | XMS REPORT | Encounter Summary ---
Author Author [facility] Organization [facility] Address Unknown Phone Unavailable Care Team Providers Care Breaker Engineer Name Role Phone Unverified, Unverified PCP Unavailable Dorian Muse MD Unavailable Reason for Visit * Reason Comments Medication Question About info about pending hospitalization. Anticoagulation Therapy Resource Information dt benji contact info Encounter Details Care Team Description Date Type Department Natividad Rebollar RN Medication Question About Anticoagulation Therapy (info about pending hospitalization.); Resource Information (dt benji contact info) 10/06/2011 Documentation The [facility] [address] [place] [address] Social History Date Tobacco Use Types Packs/Day Years Used Never Smoker Smokeless Tobacco: Never Used Drinks/Week oz/Week Comments Alcohol Use No Sex Assigned at Date Recorded Not on file Industry Job Start Date Occupation Not on file Not on file Not on file Travel End Travel History Travel Start No recent travel history available. documented as of this encounter Progress Notes * Natividad Rebollar RN - 10/06/2011 5:16 PM CDT Dtg Benji Jackson contact info: [address] [place] [address] Wk# [phone], fax . * Natividad Rebollar RN - 10/06/2011 3:27 PM CDT Spoke to Dr. Sosa after patient appt on 10-03-11 about anticoagulation therapy & timing of her admission. He stated to start her on Xarelto 20mg qd after her GI procedure. Dtg called to report that her colonscopy / hemorrhoid banding is on 10-11-11. Instructions given to Shannan ( dtgs) Pre admit inst faxed to benji at work & mailed to her home. RX sent to [facility] pharmacy in [place] > labs done in August 2011 crat 1.0 & BUN normal range. Will have stat labs on admit due to sotalol initiation same day. Other info is listed in pre admit instructions. /mkpeggy documented in this encounter Plan of Treatment Not on filedocumented as of this encounter Visit Diagnoses Not on filedocumented in this encounter
--- OUTSIDE RECORDS SUMMARY | 2018-12-05 14:54 | XMS REPORT | Encounter Summary ---
Author Author [facility] Organization [facility] Address Unknown Phone Unavailable Care Team Providers Care Sheather Name Role Phone Unverified, Unverified PCP Unavailable Dorian Muse MD Unavailable Reason for Visit * Reason Comments Prior Authorization Needing PA for Xarelto Encounter Details Care Team Description Date Type Department Rekha Donahue RNscrubbing machine operator (Needing PA for Xarelto) 10/12/2011 Telephone [facility] [id number] [place] [address] [address] [place] [address] Social History Date Tobacco Use Types Packs/Day [...] Telephone Encounter - Rekha Donahue RN - 10/12/2011 3:42 PM CDT Approval received for Xarelto by [employer]. Notified local pharmacy, [facility] in [place]. * Telephone Encounter - Natividad Rebollar RN - 10/12/2011 2:50 PM CDT See nurse note anticoagulation medication encounter from 10-06-11, RAD wanted to try xarelto./mkm * Telephone Encounter - Rekha Donahue RN - 10/12/2011 2:35 PM CDT Message copied by REKHA DONAHUE E on MonOct 12, 2011 2:35 PM Prior authorization request for Xarelto faxed to [facility] at [phone]. ------ Message from: WILLIAM LAL Created: MonOct 07, 2011 5:57 PM Regarding: RE: medication question I don't see any note from [facility]il[facility], but fellow note from when she saw RAD says P radaxa. Natividad is back at OP office today, better check with her cause I can't te ll. sorry ----- Message ----- From: Rekha Cobb RN Sent: 10/07/2011 10:40 AM To: [facility] Nurse Maya/ Linnea/Len Subject: medication question Pt saw JAMES on the . Received a PA for Celestine today, but JAMES says to st art her on Pradaxa/ Natividad's note says Xarelto. What should she be on? Please ad vise. documented in this encounter Plan of Treatment Not on filedocumented as of this encounter Visit Diagnoses Not on filedocumented in this encounter
--- OUTSIDE RECORDS SUMMARY | 2018-12-05 14:54 | XMS REPORT | Encounter Summary ---
Author Author [facility] Organization [facility] Address Unknown Phone Unavailable Care Team Providers Care Solar System Designer Name Role Phone Unverified, Unverified PCP Unavailable Dorian Muse MD Unavailable Reason for Visit * Reason Comments Medical Question Encounter Details Care Team Description Date Type Department Sera Miranda, RN Medical Question 10/05/2011 Telephone [facility] [address] [place], [place] [address] Social History Date Tobacco Use Types Packs/Day [...] Miscellaneous Notes * Telephone Encounter - Sera Miranda, RN - 10/05/2011 10:52 AM CDT Spoke to Dipika villalobos, and she states taking her mom to the GI MD today. She will have him fax results/blood thinner recommendations to us. She states we can call her at the work number below any time if we have further needs/questions. Message copied by SERA MIRANDA on MonOct 05, 2011 10:52 AM ------ Message from: RAÚL CASTELLANO Created: MonOct 05, 2011 10:13 AM Pt needing to have hemoroids surgery-and has questions-pls call wilfredo mcdowell [phone]. tx documented in this encounter Plan of Treatment Not on filedocumented as of this encounter Visit Diagnoses Not on filedocumented in this encounter
--- OUTSIDE RECORDS SUMMARY | 2018-12-05 14:55 | XMS REPORT | Encounter Summary ---
Author Author [facility] Organization [facility] Address Unknown Phone Unavailable Care Team Providers Care Wildlife Rehabilitator Name Role Phone Unverified, Unverified Md PCP Unavailable Dorian Muse MD Unavailable Encounter Details Care Team Description Date Type Department Ernesto Sosa MD [address] [facility] [place], [place] [id number] Other premature beats 10/03/2011 [facility] Cardiology Encounter [id number] [place], [place] [id number] Social History Date Tobacco Use Types Packs/Day [...] 100 mg 0 tablet by mouth Daily. 11/25/2011 amlodipine (NORVASC) 5 mg Take 5 mg by 0 tablet mouth daily. 07/08/2013 atenolol (TENORMIN) 50 mg Take 50 mg by 0 tablet mouth twice daily. 07/08/2013 cyclobenzaprine Take 10 mg by 0 (FLEXERIL) 10 mg tablet mouth Daily. 04/30/2013 OMEPRAZOLE (PRILOSEC PO) Take 40 mg by 0 mouth daily. 03/07/2013 sertraline (ZOLOFT) 100 Take 100 mg 0 mg tablet by mouth Daily. documented as of this encounter Plan of Treatment Not on filedocumented as of this encounter Visit Diagnoses Not on filedocumented in this encounter
--- OUTSIDE RECORDS SUMMARY | 2018-12-05 14:55 | XMS REPORT | Encounter Summary ---
Author Author [facility] Organization [facility] Address Unknown Phone Unavailable Care Team Providers Care Lead Pastor Name Role Phone Unverified, Unverified PCP Unavailable Dorian Muse MD Unavailable Reason for Referral * Referred By Contact Referred To Contact Status Reason Specialty Diagnoses / Procedures [facility] [address] [place] [address] Closed Procedures CBC * Referred By Contact Referred To Contact Status Reason Specialty Diagnoses / Procedures [facility] [address] [place] [address] Closed Procedures COMPREHENSIVE METABOLIC PANEL * Referred By Contact Referred To Contact Status Reason Specialty Diagnoses / Procedures [facility] [address] [place] [address] Closed Procedures LIPID PROFILE Encounter Details Care Team Description Date Type Department Daisy Garcia MA 10/04/2011 Documentation [facility] [address] [place] [address] Social History Date Tobacco Use Types Packs/Day [...] Name Priority Date/Time Associated Diagnosis CBC Routine 09/14/2011 LIPID PROFILE Routine 09/14/2011 COMPREHENSIVE METABOLIC Routine 09/14/2011 PANEL documented in this encounter Results * CBC (09/14/2011) White Blood 6.2 [facility] RBC 5.56 [facility] Hemoglobin 15.8 [facility] Hematocrit 47 [facility] MCV 85 [facility] MCH 28 [facility] MCHC 34 [facility] Platelet Count 251 [facility] MPV 10.4 [facility] RDW 14.8 (H) 10.0 - 14.5 [facility] Specimen Blood - Blood Performing Organization Address [facility] Phone Number VIA [phone] [place] [address] * COMPREHENSIVE METABOLIC PANEL (09/14/2011) Sodium 137 [facility] Potassium 3.8 [facility] Chloride 102 [facility] CO2 29 [facility] Blood Urea 14 [facility]IA [facility] Creatinine 1.0 [facility] Glucose 113 (H) 74 - 106 [facility] Calcium 9.1 [facility] Total Protein 8.2 [facility] Total Bilirubin 1.3 (H) 0.0 - 1.0 [facility] Albumin 3.4 [facility] Alk Phosphatase 91 [facility] AST (SGOT) 44 (H) 15 - 37 [facility] ALT (SGPT) 74 (H) 30 - 65 [facility] eGFR Non [facility]IA [facility] eGFR VIA [facility] Anion Gap [facility]IA [facility] Specimen Blood - Blood Performing Organization Address [facility]/Zipcode Phone Number VIA [facility] [address] [place] [address] [facility] * LIPID PROFILE (09/14/2011) Cholesterol 171 [facility] Triglycerides 132 [facility] HDL 39 [facility] LDL 106 [facility] VLDL [facility]IA [facility] Non HDL [facility]IA [facility] Cholesterol/HDL VIA [facility] Specimen Blood - Blood Performing Organization Address City/[facility]/Zipcode Phone Number VIA [facility] [address] [place] [address] [facility] documented in this encounter Visit Diagnoses Not on filedocumented in this encounter
--- OUTSIDE RECORDS SUMMARY | 2018-12-05 14:55 | XMS REPORT | Encounter Summary ---
Author Author [facility] Organization [facility] Address Unknown Phone Unavailable Care Team Providers Care Jewelry Technician Name Role Phone Unverified, Unverified PCP Unavailable Dorian Muse MD Unavailable Dagmar Lopes MD PCP Reason for Visit * Reason Comments New Patient Afib, referred by Dr. Gruber Encounter Details Care Team Description Date Type Department Ernesto Sosa MD [address] [facility] [place] [address] New Patient (Afib, referred by Dr. Gruber) 10/03/2011 Office Visit [facility] [address] [place] [address] [address] [place] [address] Social History Date Tobacco Use Types Packs/Day [...] Signs Reading Time Taken Comments Vital Sign 126/86 10/03/2011 3:52 PM CDT Blood Pressure 65 10/03/2011 3:47 PM CDT Pulse - - Temperature - - Respiratory Rate - - Oxygen Saturation - - Inhaled Oxygen Concentration 98.3 kg (216 lb 12.8 oz) 10/03/2011 3:47 PM CDT Weight 167.6 cm (5' 6") 10/03/2011 3:47 PM CDT Height 34.99 10/03/2011 3:47 PM CDT Body Mass Index documented in this encounter Progress Notes * Sandee Jones, SHAYLA - 10/03/2011 2:59 PM CDT Faiza Nation is a 76 y.o. female. HPI Ms. Faiza Nation is a 76-year-old female, who was referred to our Cardiology Cl in by Dr. Gruber from [place], [place]. She is a pleasant 76-year-old female [...] starting antiarrhythmic d rugs. Patient was willing. ([id number]) Filed Vitals: 10/03/11 1547 10/03/11 1552 BP: [...] Near syncope 09/16/2011 09/14/11 hospital admission to [facility] in [place], [place]. Reveal device 952 9 implanted by Allyn Petit MD. 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 Medical treatm ent, started Plavix. 09/14/11 Admitted to [facility] ( [facility]) with CP & palpitations. Stress test Lexiscan Myoview) showed no ischemia. EF 65% Echocardiogram: EF 70%. Mild LVH. La size 4.3cm. Mitral valve with myxomatous d egeneration, mild MR. Cardiac device in situ, other [...] rhythm Rate 67, first degree AV block, [place] [address], normal axi s. Assessment and Plan This is a 76-year-old female patient with paroxysmal atrial fibrillation and hyp ertension. 1. Paroxysmal atrial fibrillation. Since the patient has pauses, she will defin itely need a permanent pacemaker implantation prior to initiating her on antiarr hythmics. We will plan on placing a dual-chamber pacemaker some time within the next 2 weeks when the schedule can be worked out. Thereupon we will admit her to the hospital during the same admission and initiate her on sotalol. She also needs to be on anticoagulation given that her CHADS score is 2. We discussed b oth Coumadin and Pradaxa and the patient was willing to take Pradaxa. However, she does have some occasional bleeding from her hemorrhoids and she is also due for a colonoscopy, hence we encouraged her to followup with her GI physician narinder figueroa the next 2 weeks. Until then, we will give her aspirin 325 mg. We did disc uss about the risks for stroke in the interim. The patient will be placed on Pr adaxa once her hemorrhoid issue is sorted out. The patient denies any other upp er or lower gastrointestinal bleeding other than the hemorrhoids. 2. Hypertension. Continue current medications of Norvasc, atenolol and losartan . 3. Hypothyroidism. Her most recent TSH is normal at 4.1. Continue her current Synthroid dose. Thank you for allowing us to participate in the care of this wonderful patient. (DOC:[id number]) I personally performed the carrera portions of the exam and concur with documentati on of history, physical exam, assessment, and treatment plan unless otherwise no keith. Current Medications (including today's revisions) aspirin EC [...] tablet Take 15 mg by mouth daily. Stuart-3 Acid Ethyl Esters (LOVAZA) 1 gram Cap [...] Schedule Name Type Priority Associated Diagnoses Ordered: 10/03/2011 ECG 12-LEAD ECG Routine Hypertension Hyperlipidemia Paroxysmal atrial fibrillation Near syncope documented as of this encounter Visit Diagnoses Diagnosis Hypertension Unspecified essential hypertension Hyperlipidemia Other and unspecified hyperlipidemia Paroxysmal atrial fibrillation (HCC) Atrial fibrillation Near syncope Syncope and collapse documented in this encounter
--- OUTSIDE RECORDS SUMMARY | 2018-12-05 14:55 | XMS REPORT | Encounter Summary ---
Author Author [facility] Organization [facility] Address Unknown Phone Unavailable Care Team Providers Care Combine Inspector Name Role Phone Unverified, Unverified PCP Unavailable Encounter Details Care Team Description Date Type Department Dorian Muse MD [address] [place] [address] 12/02/2008 Hospital [facility] [address] [address] Social History Date Tobacco Use Types Packs/Day Years Used Never Smoker Drinks/Week oz/Week Comments Alcohol Use No Sex [...] 100 mg 0 tablet by mouth Daily. 10/03/2011 acetaminophen (TYLENOL) Take 650 mg 0 325 mg tablet by mouth Every 4 Hours as needed for Pain. 10/03/2011 amiodarone (PACERONE) 200 Take 200 mg 0 mg tablet by mouth Daily. 11/25/2011 amlodipine (NORVASC) 5 mg Take 5 mg by 0 tablet mouth daily. 07/08/2013 atenolol (TENORMIN) 50 mg Take 50 mg by 0 tablet mouth twice daily. 10/03/2011 benzonatate (TESSALON) Take 400 mg 0 200 mg capsule by mouth Every 4 Hours as needed for Cough. 07/08/2013 cyclobenzaprine Take 10 mg by 0 (FLEXERIL) 10 mg tablet mouth Daily. 10/03/2011 hydrocodone/acetaminophen Take 1 Tab by 0 ,+, (VICODIN) 10/325 mg mouth Every 4 tablet Hours as needed for Pain. 10/03/2011 levothyroxine (SYNTHROID) Take 50 mcg 0 50 mcg tablet by mouth Daily. 10/03/2011 MAGNESIUM HYDROXIDE (MILK Take 30 mL by 0 OF MAGNESIA PO) mouth. 10/03/2011 metoclopramide (REGLAN) Take 10 mg by 0 10 mg tablet mouth Four Times Daily. 04/30/2013 OMEPRAZOLE (PRILOSEC PO) Take 40 mg by 0 mouth daily. 03/07/2013 sertraline (ZOLOFT) 100 Take 100 mg 0 mg tablet by mouth Daily. 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
--- OUTSIDE RECORDS SUMMARY | 2018-12-05 14:55 | XMS REPORT | Encounter Summary ---
Author Author [facility] Organization [facility] Address Unknown Phone Unavailable Care Team Providers Care Weigher Packing Name Role Phone Unverified, Unverified PCP Unavailable Dorian Muse MD Unavailable Encounter Details Care Team Description Date Type Department Annie Cobb RN 10/03/2011 Patient Profile [facility] [address] [place], [place] [id number] Social History Date Tobacco Use Types Packs/Day [...]
--- OUTSIDE RECORDS SUMMARY | 2018-12-05 14:55 | XMS REPORT | Encounter Summary ---
Author Author [facility] Organization [facility] Address Unknown Phone Unavailable Care Team Providers Care Rug Measurer Name Role Phone Unverified, Unverified PCP Unavailable Dorian Muse MD Unavailable Reason for Visit * Reason Comments Records Request Via [facility] Encounter Details Care Team Description Date Type Department Daisy Garcia MA Records Request ([facility]ia [facility]) 09/30/2011 Documentation [facility] [address] [place] [address] Social History Date Tobacco Use Types Packs/Day Years Used Never Smoker Drinks/Week oz/Week Comments Alcohol Use No Sex Assigned at Date Recorded Not on file Industry Job Start Date Occupation Not on file Not on file Not on file Travel End Travel History Travel Start No recent travel history available. documented as of this encounter Progress Notes * Daisy Garcia - 09/30/2011 5:08 PM CDT Pt has an appointment with Dr. Sosa on Monday10/03/2011. Pt was hospitalized 09/2011 at [place], [place]. Please send recent Discharge Summary, EKG 's, recent labs, H&P, and any cardiac related records. Pt. Was referred to us by Dr. Gruber. Thanks! documented in this encounter Plan of Treatment Not on filedocumented as of this encounter Visit Diagnoses Not on filedocumented in this encounter
--- OUTSIDE RECORDS SUMMARY | 2018-12-05 14:55 | XMS REPORT | Encounter Summary ---
Author Author [facility] Organization [facility] Address Unknown Phone Unavailable Care Team Providers Care Retail Team Member Name Role Phone Unverified, Unverified PCP Unavailable Dorian Muse MD Unavailable Reason for Visit * Reason Comments Records Request Dr. Gruber, Cardiology, [place], [place] Encounter Details Care Team Description Date Type Department Daisy Garcia MA Records Request (Dr. Gruber, Cardiology, [place], [place]) 09/30/2011 Documentation [facility] [address] [place] [address] Social History Date Tobacco Use Types Packs/Day Years Used Never Smoker Drinks/Week oz/Week Comments Alcohol Use No Sex Assigned at Date Recorded Not on file Industry Job Start Date Occupation Not on file Not on file Not on file Travel End Travel History Travel Start No recent travel history available. documented as of this encounter Progress Notes * Daisy Garcia - 09/30/2011 5:03 PM CDT Pt has an appointment with Dr. Sosa on Monday10/03/2011. Please send recent o ffice visit notes, EKG's, recent labs, current medication list and H&P, and any cardiac related records. Thanks! documented in this encounter Plan of Treatment Not on filedocumented as of this encounter Visit Diagnoses Not on filedocumented in this encounter
--- OUTSIDE RECORDS SUMMARY | 2018-12-05 14:55 | XMS REPORT | Encounter Summary ---
Author Author [facility] Organization [facility] Address Unknown Phone Unavailable Care Team Providers Care Business Area Manager Name Role Phone Unverified, Unverified PCP Unavailable Dorian Muse MD Unavailable Encounter Details Care Team Description Date Type Department Arrived 10/03/2011 Hospital [facility] [address] [place], [place] [id number] Social History Date Tobacco Use Types Packs/Day [...] 100 mcg tablet by mouth daily. 04/11/2012 [place]-3 Acid Ethyl Esters Take 1 Cap by [...] Priority Date/Time Associated Diagnosis DEVICE EVALUATION - ILR Routine 10/03/2011 Other premature beats 4:49 PM CDT documented in this encounter Results * DEVICE EVALUATION - ILR (10/03/2011 4:49 PM CDT) Specimen Narrative Performed At Reveal XT 9529 implanted by Monica Gruber MD ( [place], [place]) OTHER OUTSIDE LAB [10/03/2011 4:49:33 PM - [facility]]. REVEAL XT 9529 device implanted by Allyn Petit MD in [facility]. Pt made 9 SYMPTOM recordings since 09-29-11 - last session.EGMS of symptom recordings showAF at 100bpm to 75bpm.C/o of "irregular heartbeat & fast". Asystole x1 since last interrogated on 09-28-124 sec at 4:48am. AT/ AF burden recorded by ILR=3.6%.1 AT/ AF episode 1-4 hrs duration. EGMS documenting AT/ AF1 documented: appears to be AF with ventricular response [id number] by egm..Interrogated ILR to prior session as family member said that last session revealed a problem. Noted a 3 sec pause on 09-26-11 at 1138am. Suture removed at distal end of Reveal device incision, no pus, only a small amt of blood (pin top size). Covered with sterile gauze & paper tape, old bandage removed, tape residue taken off with adhesive remover/ cotton ball. No redness, swelling or drainage noted. Plan dual chamber pacemaker, anticoagulation & sotalol initiation after pt has hemorrhoids addressed. Dtg will call to set up after GI arrangements made. Procedure Note Ernesto Sosa MD - 10/13/2011 11:03 PM CDT Reveal XT 9529 implanted by Monica Gruber MD ( [place], [place]) [10/03/2011 4:49:33 PM - [facility]]. REVEAL XT 9529 device implanted by Allyn Petit MD in [facility]. Pt made 9 SYMPTOM recordings since 09-29-11 - last session.EGMS of symptom recordings show AF at 100bpm to 75bpm. C/o of "irregular heartbeat & fast". Asystole x1 since last interrogated on 09-29-11 4 sec at 4:48am. AT/ AF burden recorded by ILR=3.6%.1 AT/ AF episode 1-4 hrs duration. EGMS documenting AT/ AF 1 documented: appears to be AF with ventricular response of 60-70bpm by egm.. Interrogated ILR to prior session as family member said that last session revealed a problem. Noted a 3 sec pause on 09-26-11 at 1138am. Suture removed at distal end of Reveal device incision, no pus, only a small amt of blood (pin top size). Covered with sterile gauze & paper tape, old bandage removed, tape residue taken off with adhesive remover/ cotton ball. No redness, swelling or drainage noted. Plan dual chamber pacemaker, anticoagulation & sotalol initiation after pt has hemorrhoids addressed. Dtg will call to set up after GI arrangements made. Performing Organization Address City/State/Zipcode Phone Number OTHER OUTSIDE LAB documented in this encounter Visit Diagnoses Diagnosis Other premature beats documented in this encounter
--- OUTSIDE RECORDS SUMMARY | 2018-12-05 14:55 | XMS REPORT | Encounter Summary ---
Author Author [facility] Organization [facility] Address Unknown Phone Unavailable Care Team Providers Care Associate Professor Of Mathematics Name Role Phone Unverified, Unverified PCP Unavailable Dorian Muse MD Unavailable Reason for Visit * Reason Comments New Patient Pacemaker, referred by Dr. Gruber Encounter Details Care Team Description Date Type Department Daisy Garcia MA New Patient (Pacemaker, referred by Dr. Gruber) 09/30/2011 Patient Profile [facility] [address] [facility] [address] [place] [address] Social History Date Tobacco Use Types Packs/Day [...]
--- OUTSIDE RECORDS SUMMARY | 2018-12-05 14:56 | XMS REPORT | Encounter Summary ---
Author Author [facility] Organization [facility] Address Unknown Phone Unavailable Care Team Providers Care [employer] Name Role Phone Unverified, Unverified PCP Unavailable Encounter Details Care Team Description Date Type Department Dorian Muse MD [address] [place] [address] Cervicalgia 12/01/2008 Hospital Same Day Surgery Encounter [address] [place] [address] Social History Date Tobacco Use [...] Signs Reading Time Taken Comments Vital Sign 154/80 12/01/2008 5:10 PM CDT Blood Pressure 80 12/01/2008 5:10 PM CDT Pulse 36.1 C (97 F) 12/01/2008 2:54 PM CDT Temperature - - Respiratory Rate 96% 12/01/2008 5:10 PM CDT Oxygen Saturation - - Inhaled Oxygen Concentration 88.9 kg (196 lb) 12/01/2008 2:54 PM CDT Weight 165.1 cm (5' 5") 12/01/2008 2:54 PM CDT Height 32.62 12/01/2008 2:54 PM CDT Body Mass Index documented in this encounter Medications at Time [...] mouth Daily. documented as of this encounter H&P Notes * Jose Potter MD - 12/01/2008 2:56 PM CDT Pre Procedure History and Physical/Sedation Plan Procedure Date: 12/01/2008 Planned Procedure(s): Cervical and lumbar myelogram. Indication: Back and neck pain. Sedation/Medication Plan: Midazolam and Fentanyl Discussion/Reviews: Physician has discussed risks and alternatives of this type of sedation and above planned procedures with patient, Reviewed appropriate: a llergies, lab/diagnostic tests, patient history, review of systems and time and route of recently administered narcotics and sedatives and I have privileges for the planned sedation. Patient Active Hospital Problem List: * No active hospital problems. * Chief Complaint: Back and neck pain. History of Present Illness: Faiza Nation is a 73 y.o. female with chronic neck and back pain here for cervical and lumbar myelogram. Previous Anesthetic/Sedation History: No known adverse reactions. Nursing Medical History Thyroid Disease Yes hypothyroid HTN Yes GI Ulcer Yes Hyperlipidemia Yes Arthritis Yes Arrhythmia Yes atrial fibrillation Psychiatric Disorder Yes depression Other Yes Nursing Surgical History Tonsillectomy Yes Adenoidectomy Yes Joint Replacement Yes 2knee replacement, 2 hip replacement Other Yes hiatal hernia repair, cholecystectomy Pertinent medical/surgical history reviewed History Social History Marital Status: Single Spouse Name: N/A Number of Children: N/A Years of Education: N/A Social History Main Topics Tobacco Use: Never Alcohol Use: No Drug Use: No Sexually Active: Not on file Other Topics Concern Not on file Social History Narrative No narrative on file No family history on file. Allergies: Morphine and Codeine Medications: Current outpatient prescriptions Medication Sig amlodipine (NORVASC) 5 mg tablet Take 5 mg by mouth Daily. sertraline (ZOLOFT) 100 mg tablet Take 100 mg by mouth Daily. cyclobenzaprine (FLEXERIL) 10 mg tablet Take 10 mg by mouth Daily. donepezil (ARICEPT) 10 mg tablet Take 10 mg by mouth At Bedtime Daily. metoclopramide (REGLAN) 10 mg tablet Take 10 mg by mouth Four Times Daily. hydrocodone/acetaminophen,+, (VICODIN) 10/325 mg tablet Take 1 Tab by mouth Every 4 Hours as needed for Pain. acetaminophen (TYLENOL) 325 mg tablet Take 650 mg by mouth Every 4 Hours as needed for Pain. benzonatate (TESSALON) 200 mg capsule Take 400 mg by mouth Every 4 Hours as needed for Cough. Current hospital medications Medication SODIUM CHLORIDE 0.9 % IV SOLP (AcuDose pull) Review of Systems: Pertinent items are noted in HPI. Physical Exam: General appearance: alert Neurologic: Grossly normal Lungs: clear to auscultation bilaterally Heart: regular rate and rhythm Abdomen: normal findings: soft, non-tender Extremities: extremities normal, atraumatic, no cyanosis or edema Airway: airway assessment performed Anesthesia Classification: ASA II (A normal patient with mild systemic disease) Lab/Radiology/Other Diagnostic Tests: No results found for this basename: hgb,pltct,wbc,pt,ptt,inr,cr,bun I have discussed the risks of the procedure with the patient and obtained infor med consent. Neftaly Montes De Oca MD documented in this encounter Procedure Notes * Neftaly Montes De Oca MD - 12/01/2008 5:07 PM CDT Immediate Post Procedure Note Date: 12/01/2008 Attending Physician: [employer] Title Clerk(s): Tavon Procedure(s): Cervical and lumbar myelogram. Indications: Cervical and lumbar radiculopathy. Findings: See dictated report. Anesthesia: Local with IV sedation 2% lidocaine Versed 3 mg IV, fentanyl 150 mcg IV Total Fluoro Time: 9.9 minutes Contrast: 15 mL of Isovue M300 Time out performed: Consent obtained, correct patient verified, correct procedur e verified, correct site verified, patient marked as necessary. Estimated Blood Loss: None/Negligible Specimen(s) Removed/Disposition: None Complications: None Neftaly Montes De Oca MD documented in this encounter Plan of Treatment Not on filedocumented as of this encounter Procedures Comments Procedure Name Priority Date/Time Associated Diagnosis CT L-SPINE WO CONTRAST Routine 12/01/2008 Lumbago 4:[address] SPINE CERVICAL WO Routine 12/01/2008 Lumbago CONTRAST 4:46 PM CDT Cervicalgia ENTIRE SPINE IR MYLOGRM 12/01/2008 4:37 PM CDT documented in this encounter Results * CT L-SPINE WO CONTRAST (12/01/2008 4:46 PM CDT) Exam Status [facility] SIGNED REPORT Exam CERVICAL AND LUMBAR SPINE CT, [facility] POSTMYELOGRAM: Clinical Indication: 73-year-old female with lumbago and cervicalgia. TECHNIQUE: Multiple contiguous axial images were obtained through the lumbar spine without the use IV contrast following intrathecal administration of contrast as described above. No prior studies are available for comparison. FINDINGS: Dr. Adan has personally reviewed these images and formulated the interpretations and opinions expressed in this report. CERVICAL SPINE FINDINGS: There is straightening from the normal cervical lordosis. The alignment is within normal limits. There is severe multilevel degenerative disc disease, most prominent at C4-C5, C5-C6, and C6-C7. The spinal cord is normal in size and appearance. The occipital-cervical junction is unremarkable. The atlanto-axial articulation is maintained. At C1/2, there is no significant neuroforaminal or central spinal stenosis. At C2/3, there is no significant neuroforaminal or central spinal stenosis. At C3/4, there is a central disc bulge without disc herniation or significant central spinal or neuroforaminal stenosis. At C4/5, there is severe disc degeneration, endplate sclerosis, loss of disc space height, anterior and posterior osteophyte formation, and uncovertebral hypertrophy which causes mild flattening of the ventral thecal sac. There is no cord compression. There is mild bilateral neuroforaminal narrowing. At C5/6, there is severe disc degeneration, endplate sclerosis, loss of disc space height, anterior and posterior osteophyte formation, and uncovertebral hypertrophy which causes mild flattening of the ventral thecal sac. There is no cord compression. There is moderate bilateral neuroforaminal narrowing. At C6/7, there is severe disc degeneration, endplate sclerosis, loss of disc space height, anterior and posterior osteophyte formation, and uncovertebral hypertrophy which causes mild flattening of the ventral thecal sac. There is no cord compression. There is moderate to moderate bilateral neuroforaminal narrowing. At C7/T1, there is mild disc degeneration with no significant central spinal or neuroforaminal compromise. LUMBAR SPINE FINDINGS: There is moderate S-shaped lumbar scoliosis noted. There is severe multilevel disc degeneration, which is worst at L2/3 and L5/S1. There is no evidence of acute fracture or subluxation. The conus medullaris and cauda equina are unremarkable. At T12/L1, there is a mild diffuse disc bulge without disc herniation or central spinal compromise. There is moderate osteoarthrosis of the facet joints bilaterally with mild bilateral ligamentum flavum hypertrophy. At T1/2, there is a diffuse disc bulge without disc herniation. The conus medullaris ends at the L1/2 level. There is moderate osteoarthrosis of the facets bilaterally with moderate ligamentum flavum hypertrophy. There is no significant neuroforaminal or central spinal compromise. There is soft tissue fullness along the medial left facet extending along and anterior to the left lamina which causes mild indention of the posterior left thecal sac and may represent ligamentum flavum hypertrophy or a posterior synovial cyst. At L2/3, there is severe disc degeneration with loss of disc space height, endplate sclerosis, and vacuum disc phenomenon. There is a mild diffuse disc bulge with mild facet osteoarthrosis and ligamentum flavum hypertrophy which does not cause any significant central spinal or neuroforaminal compromise. At L3/4, there is a diffuse disc bulge with vacuum disc phenomena. There is bilateral ligamentum flavum hypertrophy with moderate bilateral facet hypertrophy. There is no evidence of disc herniation. There is no significant central or neuroforaminal compromise. At L4/5, there is a mild diffuse disc bulge, ligamentum flavum hypertrophy, and moderate bilateral facet hypertrophy. There is no significant central or neuroforaminal compromise. At L5/S1, there is severe degenerative disc disease with vacuum disc phenomena. There is a moderate diffuse disc bulge with severe facet hypertrophy bilaterally. There is no significant central canal or left neuroforaminal compromise. A soft tissue density is seen within the right neural foramen, best seen on image [id number], which may represent a lateral disc herniation. 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 A 4 cm medial left kidney cyst is noted. There has been previous right hip replacement. Impression CT L-SPINE WO CONTRAST [facility] CERVICAL SPINE: 1. SEVERE MULTILEVEL DEGENERATIVE DISC DISEASE, WORST AT C4/5, C5/6, AND C6/7 DISCUSSED. LUMBAR SPINE: 1. SEVERE MULTILEVEL DEGENERATIVE DISC DISEASE, WORST AT L2/3 AND L5/S1. 2. SOFT TISSUE DENSITY WITHIN THE RIGHT L5/S1 NEURAL FORAMEN WHICH IS SUSPICIOUS FOR A LATERAL DISC HERNIATION. A NERVE SHEATH TUMOR OR SYNOVIAL CYST ARE ADDITIONAL CONSIDERATIONS BUT CONSIDERED LESS LIKELY. AN MRI OF THE LUMBAR SPINE COULD BE OBTAINED FOR FURTHER EVALUATION IF CLINICALLY INDICATED. PACS [facility] Specimen Impressions Performed At CT L-SPINE WO CONTRAST [facility] CERVICAL SPINE: 1. SEVERE MULTILEVEL DEGENERATIVE DISC DISEASE, WORST AT C4/5, C5/6, AND C6/7 DISCUSSED. LUMBAR SPINE: 1. SEVERE MULTILEVEL DEGENERATIVE DISC DISEASE, WORST AT L2/3 AND L5/S1. 2. SOFT TISSUE DENSITY WITHIN THE RIGHT L5/S1 NEURAL FORAMEN WHICH IS SUSPICIOUS FOR A LATERAL DISC HERNIATION. A NERVE SHEATH TUMOR OR SYNOVIAL CYST ARE ADDITIONAL CONSIDERATIONS BUT CONSIDERED LESS LIKELY. AN MRI OF THE LUMBAR SPINE COULD BE OBTAINED FOR FURTHER EVALUATION IF CLINICALLY INDICATED. Narrative Performed At CERVICAL AND LUMBAR SPINE CT, POSTMYELOGRAM: [facility] Clinical Indication: 73-year-old female with lumbago and cervicalgia. TECHNIQUE: Multiple contiguous axial images were obtained through the lumbar spine without the use IV contrast following intrathecal administration of contrast as described above. No prior studies are available for comparison. FINDINGS: Dr. Adan has personally reviewed these images and formulated the interpretations and opinions expressed in this report. CERVICAL SPINE FINDINGS: There is straightening from the normal cervical lordosis. The alignment is within normal limits. There is severe multilevel degenerative disc disease, most prominent at C4-C5, C5-C6, and C6-C7. The spinal cord is normal in size and appearance. The occipital-cervical junction is unremarkable. The atlanto-axial articulation is maintained. At C1/2, there is no significant neuroforaminal or central spinal stenosis. At C2/3, there is no significant neuroforaminal or central spinal stenosis. At C3/4, there is a central disc bulge without disc herniation or significant central spinal or neuroforaminal stenosis. At C4/5, there is severe disc degeneration, endplate sclerosis, loss of disc space height, anterior and posterior osteophyte formation, and uncovertebral hypertrophy which causes mild flattening of the ventral thecal sac. There is no cord compression. There is mild bilateral neuroforaminal narrowing. At C5/6, there is severe disc degeneration, endplate sclerosis, loss of disc space height, anterior and posterior osteophyte formation, and uncovertebral hypertrophy which causes mild flattening of the ventral thecal sac. There is no cord compression. There is moderate bilateral neuroforaminal narrowing. At C6/7, there is severe disc degeneration, endplate sclerosis, loss of disc space height, anterior and posterior osteophyte formation, and uncovertebral hypertrophy which causes mild flattening of the ventral thecal sac. There is no cord compression. There is moderate to moderate bilateral neuroforaminal narrowing. At C7/T1, there is mild disc degeneration with no significant central spinal or neuroforaminal compromise. LUMBAR SPINE FINDINGS: There is moderate S-shaped lumbar scoliosis noted. There is severe multilevel disc degeneration, which is worst at L2/3 and L5/S1. There is no evidence of acute fracture or subluxation. The conus medullaris and cauda equina are unremarkable. At T12/L1, there is a mild diffuse disc bulge without disc herniation or central spinal compromise. There is moderate osteoarthrosis of the facet joints bilaterally with mild bilateral ligamentum flavum hypertrophy. At T1/2, there is a diffuse disc bulge without disc herniation. The conus medullaris ends at the L1/2 level. There is moderate osteoarthrosis of the facets bilaterally with moderate ligamentum flavum hypertrophy. There is no significant neuroforaminal or central spinal compromise. There is soft tissue fullness along the medial left facet extending along and anterior to the left lamina which causes mild indention of the posterior left thecal sac and may represent ligamentum flavum hypertrophy or a posterior synovial cyst. At L2/3, there is severe disc degeneration with loss of disc space height, endplate sclerosis, and vacuum disc phenomenon. There is a mild diffuse disc bulge with mild facet osteoarthrosis and ligamentum flavum hypertrophy which does not cause any significant central spinal or neuroforaminal compromise. At L3/4, there is a diffuse disc bulge with vacuum disc phenomena. There is bilateral ligamentum flavum hypertrophy with moderate bilateral facet hypertrophy. There is no evidence of disc herniation. There is no significant central or neuroforaminal compromise. At L4/5, there is a mild diffuse disc bulge, ligamentum flavum hypertrophy, and moderate bilateral facet hypertrophy. There is no significant central or neuroforaminal compromise. At L5/S1, there is severe degenerative disc disease with vacuum disc phenomena. There is a moderate diffuse disc bulge with severe facet hypertrophy bilaterally. There is no significant central canal or left neuroforaminal compromise. A soft tissue density is seen within the right neural foramen, best seen on image [id number], which may represent a lateral disc herniation. 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 A 4 cm medial left kidney cyst is noted. There has been previous right hip replacement. Performing Organization Address City/State/Zipcode Phone Number [facility] * CT SPINE CERVICAL WO CONTRAST (12/01/2008 4:46 PM CDT) Exam Status [facility] SIGNED REPORT Exam CERVICAL AND LUMBAR SPINE CT, [facility] POSTMYELOGRAM: Clinical Indication: 73-year-old female with lumbago and cervicalgia. TECHNIQUE: Multiple contiguous axial images were obtained through the lumbar spine without the use IV contrast following intrathecal administration of contrast as described above. No prior studies are available for comparison. FINDINGS: Dr. Adan has personally reviewed these images and formulated the interpretations and opinions expressed in this report. CERVICAL SPINE FINDINGS: There is straightening from the normal cervical lordosis. The alignment is within normal limits. There is severe multilevel degenerative disc disease, most prominent at C4-C5, C5-C6, and C6-C7. The spinal cord is normal in size and appearance. The occipital-cervical junction is unremarkable. The atlanto-axial articulation is maintained. At C1/2, there is no significant neuroforaminal or central spinal stenosis. At C2/3, there is no significant neuroforaminal or central spinal stenosis. At C3/4, there is a central disc bulge without disc herniation or significant central spinal or neuroforaminal stenosis. At C4/5, there is severe disc degeneration, endplate sclerosis, loss of disc space height, anterior and posterior osteophyte formation, and uncovertebral hypertrophy which causes mild flattening of the ventral thecal sac. There is no cord compression. There is mild bilateral neuroforaminal narrowing. At C5/6, there is severe disc degeneration, endplate sclerosis, loss of disc space height, anterior and posterior osteophyte formation, and uncovertebral hypertrophy which causes mild flattening of the ventral thecal sac. There is no cord compression. There is moderate bilateral neuroforaminal narrowing. At C6/7, there is severe disc degeneration, endplate sclerosis, loss of disc space height, anterior and posterior osteophyte formation, and uncovertebral hypertrophy which causes mild flattening of the ventral thecal sac. There is no cord compression. There is moderate to moderate bilateral neuroforaminal narrowing. At C7/T1, there is mild disc degeneration with no significant central spinal or neuroforaminal compromise. LUMBAR SPINE FINDINGS: There is moderate S-shaped lumbar scoliosis noted. There is severe multilevel disc degeneration, which is worst at L2/3 and L5/S1. There is no evidence of acute fracture or subluxation. The conus medullaris and cauda equina are unremarkable. At T12/L1, there is a mild diffuse disc bulge without disc herniation or central spinal compromise. There is moderate osteoarthrosis of the facet joints bilaterally with mild bilateral ligamentum flavum hypertrophy. At T1/2, there is a diffuse disc bulge without disc herniation. The conus medullaris ends at the L1/2 level. There is moderate osteoarthrosis of the facets bilaterally with moderate ligamentum flavum hypertrophy. There is no significant neuroforaminal or central spinal compromise. There is soft tissue fullness along the medial left facet extending along and anterior to the left lamina which causes mild indention of the posterior left thecal sac and may represent ligamentum flavum hypertrophy or a posterior synovial cyst. At L2/3, there is severe disc degeneration with loss of disc space height, endplate sclerosis, and vacuum disc phenomenon. There is a mild diffuse disc bulge with mild facet osteoarthrosis and ligamentum flavum hypertrophy which does not cause any significant central spinal or neuroforaminal compromise. At L3/4, there is a diffuse disc bulge with vacuum disc phenomena. There is bilateral ligamentum flavum hypertrophy with moderate bilateral facet hypertrophy. There is no evidence of disc herniation. There is no significant central or neuroforaminal compromise. At L4/5, there is a mild diffuse disc bulge, ligamentum flavum hypertrophy, and moderate bilateral facet hypertrophy. There is no significant central or neuroforaminal compromise. At L5/S1, there is severe degenerative disc disease with vacuum disc phenomena. There is a moderate diffuse disc bulge with severe facet hypertrophy bilaterally. There is no significant central canal or left neuroforaminal compromise. A soft tissue density is seen within the right neural foramen, best seen on image [id number], which may represent a lateral disc herniation. 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 A 4 cm medial left kidney cyst is noted. There has been previous right hip replacement. Impression CT C-SPINE WO CONTRAST [facility] CERVICAL SPINE: 1. SEVERE MULTILEVEL DEGENERATIVE DISC DISEASE, WORST AT C4/5, C5/6, AND C6/7 DISCUSSED. LUMBAR SPINE: 1. SEVERE MULTILEVEL DEGENERATIVE DISC DISEASE, WORST AT L2/3 AND L5/S1. 2. SOFT TISSUE DENSITY WITHIN THE RIGHT L5/S1 NEURAL FORAMEN WHICH IS SUSPICIOUS FOR A LATERAL DISC HERNIATION. A NERVE SHEATH TUMOR OR SYNOVIAL CYST ARE ADDITIONAL CONSIDERATIONS BUT CONSIDERED LESS LIKELY. AN MRI OF THE LUMBAR SPINE COULD BE OBTAINED FOR FURTHER EVALUATION IF CLINICALLY INDICATED. PACS [facility] Specimen Impressions Performed At CT C-SPINE WO CONTRAST [facility] CERVICAL SPINE: 1. SEVERE MULTILEVEL DEGENERATIVE DISC DISEASE, WORST AT C4/5, C5/6, AND C6/7 DISCUSSED. LUMBAR SPINE: 1. SEVERE MULTILEVEL DEGENERATIVE DISC DISEASE, WORST AT L2/3 AND L5/S1. 2. SOFT TISSUE DENSITY WITHIN THE RIGHT L5/S1 NEURAL FORAMEN WHICH IS SUSPICIOUS FOR A LATERAL DISC HERNIATION. A NERVE SHEATH TUMOR OR SYNOVIAL CYST ARE ADDITIONAL CONSIDERATIONS BUT CONSIDERED LESS LIKELY. AN MRI OF THE LUMBAR SPINE COULD BE OBTAINED FOR FURTHER EVALUATION IF CLINICALLY INDICATED. Narrative Performed At CERVICAL AND LUMBAR SPINE CT, POSTMYELOGRAM: [facility] Clinical Indication: 73-year-old female with lumbago and cervicalgia. TECHNIQUE: Multiple contiguous axial images were obtained through the lumbar spine without the use IV contrast following intrathecal administration of contrast as described above. No prior studies are available for comparison. FINDINGS: Dr. Adan has personally reviewed these images and formulated the interpretations and opinions expressed in this report. CERVICAL SPINE FINDINGS: There is straightening from the normal cervical lordosis. The alignment is within normal limits. There is severe multilevel degenerative disc disease, most prominent at C4-C5, C5-C6, and C6-C7. The spinal cord is normal in size and appearance. The occipital-cervical junction is unremarkable. The atlanto-axial articulation is maintained. At C1/2, there is no significant neuroforaminal or central spinal stenosis. At C2/3, there is no significant neuroforaminal or central spinal stenosis. At C3/4, there is a central disc bulge without disc herniation or significant central spinal or neuroforaminal stenosis. At C4/5, there is severe disc degeneration, endplate sclerosis, loss of disc space height, anterior and posterior osteophyte formation, and uncovertebral hypertrophy which causes mild flattening of the ventral thecal sac. There is no cord compression. There is mild bilateral neuroforaminal narrowing. At C5/6, there is severe disc degeneration, endplate sclerosis, loss of disc space height, anterior and posterior osteophyte formation, and uncovertebral hypertrophy which causes mild flattening of the ventral thecal sac. There is no cord compression. There is moderate bilateral neuroforaminal narrowing. At C6/7, there is severe disc degeneration, endplate sclerosis, loss of disc space height, anterior and posterior osteophyte formation, and uncovertebral hypertrophy which causes mild flattening of the ventral thecal sac. There is no cord compression. There is moderate to moderate bilateral neuroforaminal narrowing. At C7/T1, there is mild disc degeneration with no significant central spinal or neuroforaminal compromise. LUMBAR SPINE FINDINGS: There is moderate S-shaped lumbar scoliosis noted. There is severe multilevel disc degeneration, which is worst at L2/3 and L5/S1. There is no evidence of acute fracture or subluxation. The conus medullaris and cauda equina are unremarkable. At T12/L1, there is a mild diffuse disc bulge without disc herniation or central spinal compromise. There is moderate osteoarthrosis of the facet joints bilaterally with mild bilateral ligamentum flavum hypertrophy. At T1/2, there is a diffuse disc bulge without disc herniation. The conus medullaris ends at the L1/2 level. There is moderate osteoarthrosis of the facets bilaterally with moderate ligamentum flavum hypertrophy. There is no significant neuroforaminal or central spinal compromise. There is soft tissue fullness along the medial left facet extending along and anterior to the left lamina which causes mild indention of the posterior left thecal sac and may represent ligamentum flavum hypertrophy or a posterior synovial cyst. At L2/3, there is severe disc degeneration with loss of disc space height, endplate sclerosis, and vacuum disc phenomenon. There is a mild diffuse disc bulge with mild facet osteoarthrosis and ligamentum flavum hypertrophy which does not cause any significant central spinal or neuroforaminal compromise. At L3/4, there is a diffuse disc bulge with vacuum disc phenomena. There is bilateral ligamentum flavum hypertrophy with moderate bilateral facet hypertrophy. There is no evidence of disc herniation. There is no significant central or neuroforaminal compromise. At L4/5, there is a mild diffuse disc bulge, ligamentum flavum hypertrophy, and moderate bilateral facet hypertrophy. There is no significant central or neuroforaminal compromise. At L5/S1, there is severe degenerative disc disease with vacuum disc phenomena. There is a moderate diffuse disc bulge with severe facet hypertrophy bilaterally. There is no significant central canal or left neuroforaminal compromise. A soft tissue density is seen within the right neural foramen, best seen on image [id number], which may represent a lateral disc herniation. 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 A 4 cm medial left kidney cyst is noted. There has been previous right hip replacement. Performing Organization Address City/State/Zipcode Phone Number SHIRLENE DOMINIQUE * ENTIRE SPINE IR MYLOGRM (12/01/2008 4:37 PM CDT) Exam Status [facility] SIGNED REPORT Exam CERVICAL AND LUMBAR SPINE [facility] MYELO[facility]: Clinical Indication: 73-year-old female with lumbago and cervicalgia. Fluoro Time: 9.9 minutes Medications: 3 mg Versed IV, 150 mg fentanyl IV. Contrast: Isovue 300M:15 mL TECHNIQUE: Dr. Adan was present for the carrera elements of the procedure and personally interpreted the results. After obtaining a brief history and physical as well as both written and verbal consent, the patient was taken to the fluoroscopy suite and placed on the fluoroscopy table in a prone position. The lower back was prepped and draped in usual sterile fashion. Fluoroscopic localization identified a patent level at L4.The overlying skin was infiltrated with 2% lidocaine. Under direct fluoroscopic guidance, a 22-gauge spinal needle was advanced into the thecal sac until CSF was returned. 15 ml Isovue 300M ofwas instilled into the thecal sac under fluoroscopic guidance. The needle was removed and puncture site dressed sterilely. Spot images in multiple obliquities were obtained of the cervical and lumbar spine. The patient was then taken to the CT scanner for additional imaging. FINDINGS: There is severe multilevel degenerative disc disease within the cervical and lumbar spine. Moderate S-shaped scoliosis of the lumbar spine is noted. Findings are discussed more fully on the associated reports for the post myelogram CT scans of the lumbar and cervical spine. Impression [facility] 1. FLUOROSCOPY GUIDED LUMBAR PUNCTURE DESCRIBED. 2. SEVERE MULTILEVEL DEGENERATIVE CHANGES WITHIN THE CERVICAL AND LUMBAR SPINE. 3. FURTHER EVALUATION WITH POST MYELOGRAM CT WAS PERFORMED. PLEASE SEE THE SEPARATE DICTATION FOR DETAILS. [facility] RAD Specimen Impressions Performed At ENTIRE SPINE MYELOGRAM [facility] 1. FLUOROSCOPY GUIDED LUMBAR PUNCTURE DESCRIBED. 2. SEVERE MULTILEVEL DEGENERATIVE CHANGES WITHIN THE CERVICAL AND LUMBAR SPINE. 3. FURTHER EVALUATION WITH POST MYELOGRAM CT WAS PERFORMED. PLEASE SEE THE SEPARATE DICTATION FOR DETAILS. Narrative Performed At CERVICAL AND LUMBAR SPINE MYELOGRAM: [facility] Clinical Indication: 73-year-old female with lumbago and cervicalgia. Fluoro Time: 9.9 minutes Medications: 3 mg Versed IV, 150 mg fentanyl IV. Contrast: Isovue 300M:15 mL TECHNIQUE: Dr. Adan was present for the carrera elements of the procedure and personally interpreted the results. After obtaining a brief history and physical as well as both written and verbal consent, the patient was taken to the fluoroscopy suite and placed on the fluoroscopy table in a prone position. The lower back was prepped and draped in usual sterile fashion. Fluoroscopic localization identified a patent level at L4.The overlying skin was infiltrated with 2% lidocaine. Under direct fluoroscopic guidance, a 22-gauge spinal needle was advanced into the thecal sac until CSF was returned. 15 ml Isovue 300M ofwas instilled into the thecal sac under fluoroscopic guidance. The needle was removed and puncture site dressed sterilely. Spot images in multiple obliquities were obtained of the cervical and lumbar spine. The patient was then taken to the CT scanner for additional imaging. FINDINGS: There is severe multilevel degenerative disc disease within the cervical and lumbar spine. Moderate S-shaped scoliosis of the lumbar spine is noted. Findings are discussed more fully on the associated reports for the post myelogram CT scans of the lumbar and cervical spine. Performing Organization Address City/State/Zipcode Phone Number SHIRLENE DOMINIQUE documented in this encounter Visit Diagnoses Diagnosis Lumbago Cervicalgia documented in this encounter Administered Medications Action Date Dose Rate Site Medication Order MAR Action 12/01/2008 4:16 PM CDT 50 mcg FENTANYL CITRATE (PF) 50 MCG/ML IJ SOLN Given (AcuDose pull) NOW, 1 dose, Mon12/01/08 at 1530, Sera Salinas: Cabinet Override, Sera Salinas: Cabinet Override, 50 mcg Given 12/01/2008 3:44 PM CDT 50 mcg Given 12/01/2008 3:37 PM CDT 12/01/2008 4:23 PM CDT LIDOCAINE HCL 20 MG/ML (2 %) IJ SOLN Given - See (AcuDose pull) OR/Proc NOW, 1 dose, Mon12/01/08 at 1545, Cholo Ernandez: Cabinet Override, Cholo Ernandez: Cabinet Override, 12/01/2008 3:58 PM CDT 1 mg MIDAZOLAM 1 MG/ML IJ SOLN (AcuDose pull) Given NOW, 1 dose, Mon12/01/08 at 1530, Sera Salinas: Cabinet Override, Sera Salinas: Cabinet Override, 1 mg Given 12/01/2008 3:45 PM CDT 1 mg Given 12/01/2008 3:38 PM CDT 12/01/2008 4:23 PM CDT 100 mL SODIUM CHLORIDE 0.9 % IV SOLP (AcuDose Given pull) NOW, 1 dose, Mon12/01/08 at 1500, SANDRA HURD: Cabinet Override, SANDRA HURD: Cabinet Override, documented in this encounter
--- OUTSIDE RECORDS SUMMARY | 2018-12-05 15:04 | XMS REPORT | CCD ---
Author Author [facility] Organization [facility] Address [address] [place] [address] Phone Care Team Providers Care Cold Roll Operator Name Role Phone PP Unavailable CCM Unavailable Summary Purpose Interface Exchange Insurance Providers Payer name Policy type / Coverage type Covered constitution party ID Effective Begin Date Effective End Date WPS Medicare Part B Medicare Part B [id number] Unknown Principal Life Insurance Medicare Part B [id number] Unknown [employer] in [place] Medicare Part B [id number] Unknown Family history Brother Diagnosis Age At Onset Heart Attack Unknown Mother Diagnosis Age At Onset Hypertension Unknown kidney disease Unknown Stroke Unknown Father Diagnosis Age At Onset Arthritis Unknown Social History Social History Element Codes Description Effective Dates Employment Unknown Retired worked at [employer] 11/20/2017 Marital status Unknown Single 12/16/[address]: 8565963 Former smoker 12/16/[address]: 859246829 Never drinks alcohol 12/16/2014 Allergies, Adverse Reactions, Alerts Substance Reaction Codes Entered Date Inactivated Date Status CODEINE RxNorm: 2670 05/25/2016 No Inactive Date Active ciprofloxacin RxNorm: 30597 12/16/2014 No Inactive Date Active MORPHINE SULFATE RxNorm: 7052 12/16/2014 No Inactive Date Active Penicillin Unknown 11/10/2015 No Inactive Date Active Past Medical History Illness Codes Condition Status Onset Date Resolved Date 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-9: 281.0 ICD-10: D51.0 Active 05/25/2017 Unknown Vitamin B12 deficiency anemia, unspecified ICD-9: 281.1 ICD-10: D51.9 Active 06/21/2016 Unknown Atrophy of thyroid (acquired) ICD-9: 244.8 ICD-10: E03.4 Active 01/23/2017 Unknown Chronic atrial fibrillation ICD-9: 427.31 ICD-10: I48.2 Active 12/15/2014 Unknown Cough ICD-9: 786.2 ICD-10: R05 Active 07/06/2017 Unknown 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 ICD-9: 553.3 ICD-10: K44.9 Active 10/29/2018 Unknown Essential (primary) hypertension ICD-9: 401.9 ICD-10: I10 Active 12/15/2014 Unknown 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 Active 07/04/2016 Unknown 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 Active 06/05/2017 Unknown Type 2 diabetes mellitus without complications ICD-9: 250.00 ICD-10: E11.9 Active 12/15/2014 Unknown Acute bronchitis due to other specified organisms ICD-9: 466.0 ICD-10: J20.8 Active 08/15/2018 Unknown Encounter for immunization ICD-9: V03.82 ICD-10: Z23 Active 05/24/2016 Unknown Pain in left shoulder ICD- 9: 719.41 ICD-10: M25.512 Active 02/26/2018 Unknown Pain in right shoulder ICD-9: 719.41 ICD-10: M25.511 Active 02/26/2018 Unknown Nausea ICD-9: 787.02 ICD-10: R11.0 Active 05/18/2015 Unknown Acute bronchitis due to Hemophilus influenzae ICD-9: 466.0 ICD-10: J20.1 Active 12/04/2017 Unknown Acute upper respiratory infection, unspecified ICD-9: 465.9 ICD-10: J06.9 Active 09/15/2017 Unknown Laceration without foreign body of right forearm, initial encounter ICD-9: 881.00 ICD-10: S51.811A Active 09/07/2017 Unknown Encounter for therapeutic drug level monitoring ICD-9: V58.83 ICD-10: Z51.81 Active 08/30/2017 Unknown Other allergic rhinitis ICD-9: 477.8 ICD-10: J30.89 Active 11/10/2015 Unknown Candidiasis of skin and nail ICD-9: 112.3 ICD-10: B37.2 Active 07/06/2017 Unknown Laceration without foreign body of left forearm, initial encounter ICD-9: 881.00 ICD-10: S51.812A Active 07/06/2017 Unknown Slow transit constipation ICD-9: 564.01 ICD-10: K59.01 Active 07/06/2017 Unknown Acute laryngopharyngitis ICD-9: 465.0 ICD-10: J06.0 Active 06/20/2017 Unknown Encounter for general adult medical examination with abnormal findings ICD-9: V70.0 ICD-10: Z00.01 Active 06/05/2017 Unknown Chest pain on breathing ICD-9: 786.52 ICD-10: R07.1 Active 03/23/2017 Unknown Chondrocostal junction syndrome [Tietze] ICD-9: 733.6 ICD-10: M94.0 Active 03/23/2017 Unknown Other fatigue ICD-9: 780.79 ICD-10: R53.83 Active 03/23/2017 Unknown Encounter for immunization ICD-9: V04.81 ICD-10: [...] ICD-9: 214.1 ICD-10: D17.23 Active 05/24/2016 Unknown Pain in right ankle and joints of right foot ICD-9: 719.47 ICD-10: M25.571 Active 05/24/2016 Unknown Encounter for screening mammogram for malignant neoplasm of breast ICD-9: V76.12 ICD-10: Z12.31 Active 03/21/2016 Unknown Other chest pain ICD-9: 786.59 ICD-10: R07.89 Active 02/24/2016 Unknown Hypothyroidism, unspecified ICD-9: 244.9 ICD-10: E03.9 Active 12/15/2014 Unknown 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.24 ICD-10: G47.34 Active 01/24/2016 Unknown Other hypersomnia ICD-9: 780.54 ICD-10: G47.19 Active 01/24/2016 Unknown Acute nasopharyngitis [common cold] ICD-9: 460 ICD-10: J00 Active 11/10/2015 Unknown Chronic fatigue, unspecified ICD-9: 780.71 ICD-10: R53.82 Active 10/11/2015 Unknown Essential tremor ICD-9: 333.1 ICD-10: G25.0 Active 10/11/2015 Unknown Abnormal levels of other serum enzymes ICD-9: 790.5 ICD-10: R74.8 Active 09/02/2015 Unknown Actinic keratosis ICD-9: 702.0 ICD-10: L57.0 Active 05/18/2015 Unknown Cervicalgia ICD-9: 723.1 ICD-10: M54.2 Active 05/11/2015 Unknown Other screening mammogram ICD-9: V76.12 Active 01/21/2015 Unknown Insomnia ICD-9: 780.52 Active 01/12/2015 Unknown Diabetes Unknown Active 12/16/2014 Unknown Hypertension Unknown Active 12/16/2014 Unknown Hypothryroidism Unknown Active 12/16/2014 Unknown Afib ICD-9: 427.31 Active 12/15/2014 Unknown Anxiety ICD-9: 300.00 Active 12/15/2014 Unknown DIABETES TYPE II ICD-9: 250.00 Active 12/15/2014 Unknown ESSENTIAL HYPERTENSION ICD-9: 401.9 Active 12/15/2014 Unknown Hypothyroidism ICD-9: 244.9 Active 12/15/2014 Unknown B12 deficiency ICD-9: 266.2 Active 10/27/2014 Unknown Problems Condition Codes Effective Dates Condition Status 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-9: 281.0 ICD-10: D51.0 05/25/2017 Active Vitamin B12 deficiency anemia, unspecified ICD-9: 281.1 ICD-10: D51.9 06/21/2016 Active Atrophy of thyroid (acquired) ICD-9: 244.8 ICD-10: E03.4 01/23/2017 Active Chronic atrial fibrillation ICD-9: 427.31 ICD-10: I48.2 12/15/2014 Active Cough ICD-9: 786.2 ICD-10: R05 07/06/2017 Active 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 ICD-9: 553.3 ICD-10: K44.9 10/29/2018 Active Essential (primary) hypertension ICD-9: 401.9 ICD-10: I10 12/15/2014 Active 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 07/04/2016 Active 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 06/05/2017 Active Type 2 diabetes mellitus without complications ICD-9: 250.00 ICD-10: E11.9 12/15/2014 Active Acute bronchitis due to other specified organisms ICD-9: 466.0 ICD-10: J20.8 08/15/2018 Active Encounter for immunization ICD-9: V03.82 ICD-10: Z23 05/24/2016 Active Pain in left shoulder ICD- 9: 719.41 ICD-10: M25.512 02/26/2018 Active Pain in right shoulder ICD-9: 719.41 ICD-10: M25.511 02/26/2018 Active Nausea ICD-9: 787.02 ICD-10: R11.0 05/18/2015 Active Acute bronchitis due to Hemophilus influenzae ICD-9: 466.0 ICD-10: J20.1 12/04/2017 Active Acute upper respiratory infection, unspecified ICD-9: 465.9 ICD-10: J06.9 09/15/2017 Active Laceration without foreign body of right forearm, initial encounter ICD-9: 881.00 ICD-10: S51.811A 09/07/2017 Active Encounter for therapeutic drug level monitoring ICD-9: V58.83 ICD-10: Z51.81 08/30/2017 Active Other allergic rhinitis ICD-9: 477.8 ICD-10: J30.89 11/10/2015 Active Candidiasis of skin and nail ICD-9: 112.3 ICD-10: B37.2 07/06/2017 Active Laceration without foreign body of left forearm, initial encounter ICD-9: 881.00 ICD-10: S51.812A 07/06/2017 Active Slow transit constipation ICD-9: 564.01 ICD-10: K59.01 07/06/2017 Active Acute laryngopharyngitis ICD-9: 465.0 ICD-10: J06.0 06/20/2017 Active Encounter for general adult medical examination with abnormal findings ICD-9: V70.0 ICD-10: Z00.01 06/05/2017 Active Chest pain on breathing ICD-9: 786.52 ICD-10: R07.1 03/23/2017 Active Chondrocostal junction syndrome [Tietze] ICD-9: 733.6 ICD-10: M94.0 03/23/2017 Active Other fatigue ICD-9: 780.79 ICD-10: R53.83 03/23/2017 Active Encounter for immunization ICD-9: V04.81 ICD-10: [...] leg ICD-9: 214.1 ICD-10: D17.23 05/24/2016 Active Pain in right ankle and joints of right foot ICD-9: 719.47 ICD-10: M25.571 05/24/2016 Active Encounter for screening mammogram for malignant neoplasm of breast ICD-9: V76.12 ICD-10: Z12.31 03/21/2016 Active Other chest pain ICD-9: 786.59 ICD-10: R07.89 02/24/2016 Active Hypothyroidism, unspecified ICD-9: 244.9 ICD-10: E03.9 12/15/2014 Active 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.24 ICD-10: G47.34 01/24/2016 Active Other hypersomnia ICD-9: 780.54 ICD-10: G47.19 01/24/2016 Active Acute nasopharyngitis [common cold] ICD-9: 460 ICD-10: J00 11/10/2015 Active Chronic fatigue, unspecified ICD-9: 780.71 ICD-10: R53.82 10/11/2015 Active Essential tremor ICD-9: 333.1 ICD-10: G25.0 10/11/2015 Active Abnormal levels of other serum enzymes ICD-9: 790.5 ICD-10: R74.8 09/02/2015 Active Actinic keratosis ICD-9: 702.0 ICD-10: L57.0 05/18/2015 Active Cervicalgia ICD-9: 723.1 ICD-10: M54.2 05/11/2015 Active Other screening mammogram ICD-9: V76.12 01/21/2015 Active Insomnia ICD-9: 780.52 01/12/2015 Active Diabetes Unknown 12/16/2014 Active Hypertension Unknown 12/16/2014 Active Hypothryroidism Unknown 12/16/2014 Active Afib ICD-9: 427.31 12/15/2014 Active Anxiety ICD-9: 300.00 12/15/2014 Active DIABETES TYPE II ICD-9: 250.00 12/15/2014 Active ESSENTIAL HYPERTENSION ICD-9: 401.9 12/15/2014 Active Hypothyroidism ICD-9: 244.9 12/15/2014 Active B12 deficiency ICD-9: 266.2 10/27/2014 Active Medications Medication Codes Instructions Start Date Stop Date Status Fill Instructions cyanocobalamin (vit B-12) 1,000 mcg/mL injection solution RxNorm: 949454 Milliliter(s) Inj 11/21/2018 11/21/2018 Inactive cyanocobalamin (vit B-12) 1,000 mcg/mL injection solution RxNorm: 816761 Milliliter(s) Inj 11/08/2018 11/08/2018 Inactive cyanocobalamin (vit B-12) 1,000 mcg/mL injection solution RxNorm: 681911 Milliliter(s) Inj 10/23/2018 10/23/2018 Inactive cyanocobalamin (vit B-12) 1,000 mcg/mL injection solution RxNorm: 584837 Milliliter(s) Inj 10/10/2018 10/10/2018 Inactive Flonase Allergy Relief 50 mcg/actuation nasal spray,suspension RxNorm: 0030743 [place] 1 [place] NASAL BID 10/08/2018 04/05/2019 Active cyanocobalamin (vit B-12) 1,000 mcg/mL injection solution RxNorm: 311839 Milliliter(s) Inj 09/27/2018 09/27/2018 Inactive levothyroxine 137 mcg tablet RxNorm: 372970 1 Tablet(s) PO daily 09/12/2018 03/10/2019 Active levothyroxine 137 mcg tablet RxNorm: 056145 1 Tablet(s) PO daily 09/12/2018 09/11/2018 Inactive cyanocobalamin (vit B-12) 1,000 mcg/mL injection solution RxNorm: 090979 Milliliter(s) Inj 09/11/2018 09/11/2018 Inactive levothyroxine 125 mcg tablet RxNorm: 308649 TAKE 1 TABLET BY MOUTH EVERY DAY 09/10/2018 09/11/2018 Inactive Generic For:SYNTHROID 125MCG TAB 09/10/2018 12:06:52 PM cyanocobalamin (vit B-12) 1,000 mcg/mL injection solution RxNorm: 575285 Milliliter(s) Inj 08/29/2018 08/29/2018 Inactive alprazolam 0.25 mg tablet RxNorm: 803164 1 Tablet(s) PO BID 08/21/2018 02/16/2019 Active hydrocodone 5 mg-acetaminophen 325 mg tablet RxNorm: 045836 1-2 Tablet(s) PO Q6 as needed for pain to use for severe pain only 08/20/2018 09/18/2018 Inactive albuterol sulfate 2.5 mg/3 mL (0.083 %) solution for nebulization RxNorm: 062235 3 Milliliter(s) INH Q6 PRN 08/15/2018 No Stop Date Active Aricept 10 mg tablet RxNorm: 553110 1 Tablet(s) PO daily 08/15/2018 08/09/2019 Active liothyronine 5 mcg tablet RxNorm: 110671 Tablet(s) TAKE 1 TABLET BY MOUTH TWICE DAILY 08/15/2018 02/10/2019 Active cyanocobalamin (vit B-12) 1,000 mcg/mL injection solution RxNorm: 686063 Milliliter(s) Inj 08/15/2018 08/15/2018 Inactive Kenalog 40 mg/mL suspension for injection RxNorm: 2597966 Milliliter(s) Inj 08/15/2018 08/15/2018 Inactive doxycycline hyclate 100 mg capsule RxNorm: 0268866 1 Capsule(s) PO BID 08/15/2018 08/24/2018 Inactive cyanocobalamin (vit B-12) 1,000 mcg/mL injection solution RxNorm: 873156 Milliliter(s) Inj 08/01/2018 08/01/2018 Inactive cyanocobalamin (vit B-12) 1,000 mcg/mL injection solution RxNorm: 244990 Milliliter(s) Inj 07/19/2018 07/19/2018 Inactive hydrocodone 5 mg-acetaminophen 325 mg tablet RxNorm: 502360 1-2 Tablet(s) PO Q6 as needed for pain 07/18/2018 08/15/2018 Inactive betamethasone valerate 0.1 % topical ointment RxNorm: 201137 1 TOP BID 07/04/2018 07/03/2018 Inactive applying to skin under nose x 10 days cyanocobalamin (vit B-12) 1,000 mcg/mL injection solution RxNorm: 752537 Milliliter(s) Inj 07/04/2018 07/04/2018 Inactive betamethasone valerate 0.1 % topical ointment RxNorm: 669612 1 TOP BID 07/04/2018 07/13/2018 Inactive applying to skin under nose x 10 days Aricept 10 mg tablet RxNorm: 285921 Tablet(s) 1 Tablet(s) PO daily 06/25/2018 08/14/2018 Inactive cyanocobalamin (vit B-12) 1,000 mcg/mL injection solution RxNorm: 654090 Milliliter(s) Inj 06/20/2018 06/20/2018 Inactive hydrocodone 5 mg-acetaminophen 325 mg tablet RxNorm: 888501 1-2 Tablet(s) PO Q6 as needed for pain 06/20/2018 07/17/2018 Inactive Flonase Allergy Relief 50 mcg/actuation nasal spray,suspension RxNorm: 1645885 [place] 1 [place] NASAL BID 06/20/2018 10/07/2018 Inactive cyanocobalamin (vit B-12) 1,000 mcg/mL injection solution RxNorm: 842702 Milliliter(s) Inj 06/06/2018 06/06/2018 Inactive alprazolam 0.25 mg tablet RxNorm: 366966 1 Tablet(s) PO BID 05/25/2018 08/21/2018 Inactive hydrocodone 5 mg-acetaminophen 325 mg tablet RxNorm: 288743 1-2 Tablet(s) PO Q6 as needed for pain 05/24/2018 06/19/2018 Inactive cyanocobalamin (vit B-12) 1,000 mcg/mL injection solution RxNorm: 816412 Milliliter(s) Inj 05/24/2018 05/24/2018 Inactive cyanocobalamin (vit B-12) 1,000 mcg/mL injection solution RxNorm: 439307 Milliliter(s) Inj 05/09/2018 05/09/2018 Inactive Claritin 10 mg tablet RxNorm: 592878 TAKE 1 TABLET BY MOUTH ONCE DAILY 05/08/2018 05/02/2019 Active Generic For:CLARITIN 10MG 05/07/2018 9:13:47 AM cyanocobalamin (vit B-12) 1,000 mcg/mL injection solution RxNorm: 811571 INJECT ONE 1 ML EVERY TWO WEEKS 05/03/2018 04/03/2019 Active 05/03/2018 9:13:42 AM Mobic 15 mg tablet RxNorm: 145677 Tablet(s) 1 Tablet(s) PO daily 04/26/2018 04/20/2019 Active buspirone 15 mg tablet RxNorm: 967995 Tablet(s) TAKE 1 TABLET BY MOUTH TWICE DAILY 04/26/2018 04/20/2019 Active Generic For:BUSPAR 15MG 05/31/2017 9:19:20 AM Norvasc 5 mg tablet RxNorm: 745187 Tablet(s) 1 Tablet(s) PO daily 04/26/2018 04/20/2019 Active cyanocobalamin (vit B-12) 1,000 mcg/mL injection solution RxNorm: 482048 Milliliter(s) Inj 04/26/2018 04/26/2018 Inactive hydrocodone 5 mg-acetaminophen 325 mg tablet RxNorm: 753075 1-2 Tablet(s) PO Q6 as needed for pain 04/25/2018 05/23/2018 Inactive cyanocobalamin (vit B-12) 1,000 mcg/mL injection solution RxNorm: 141220 Milliliter(s) Inj 04/12/2018 04/12/2018 Inactive Topamax 25 mg tablet RxNorm: 901794 1 Tablet(s) PO BID 04/09/2018 05/02/2018 Inactive Generic For:TOPAMAX 25MG 12/06/2016 9:15:13 AM Zoloft 50 mg tablet RxNorm: 234941 TAKE 1 TABLET BY MOUTH ONCE DAILY 04/04/2018 12/29/2018 Active Generic For:ZOLOFT 50MG 04/04/2018 9:13:25 AM cyanocobalamin (vit B-12) 1,000 mcg/mL injection solution RxNorm: 297241 Milliliter(s) Inj 03/30/2018 03/30/2018 Inactive levothyroxine 125 mcg tablet RxNorm: 623873 TAKE 1 TABLET BY MOUTH EVERY DAY 03/26/2018 09/09/2018 Inactive Generic For:SYNTHROID 125MCG TAB 03/26/2018 9:15:59 AM liothyronine 5 mcg tablet RxNorm: 622148 TAKE 1 TABLET BY MOUTH TWICE DAILY 03/26/2018 08/14/2018 Inactive Generic For:CYTOMEL 5MCG 03/26/2018 9:15:54 AM hydrocodone 5 mg-acetaminophen 325 mg tablet RxNorm: 176062 1-2 Tablet(s) PO Q6 as needed for pain 03/19/2018 04/17/2018 Inactive cyanocobalamin (vit B-12) 1,000 mcg/mL injection solution RxNorm: 483172 Milliliter(s) Inj 03/16/2018 03/16/2018 Inactive Flonase Allergy Relief 50 mcg/actuation nasal spray,suspension RxNorm: 8072335 1 [place] NASAL BID 03/05/2018 06/19/2018 Inactive cyanocobalamin (vit B-12) 1,000 mcg/mL injection solution RxNorm: 751268 Milliliter(s) Inj 03/02/2018 03/02/2018 Inactive alprazolam 0.25 mg tablet RxNorm: 976553 1 Tablet(s) PO BID 02/28/2018 05/27/2018 Inactive cyanocobalamin (vit B-12) 1,000 mcg/mL injection solution RxNorm: 648530 Milliliter(s) Inj 02/08/2018 02/08/2018 Inactive cyanocobalamin (vit B-12) 1,000 mcg/mL injection solution RxNorm: 430518 Milliliter(s) Inj 01/24/2018 01/24/2018 Inactive albuterol sulfate 2.5 mg/3 mL (0.083 %) solution for nebulization RxNorm: 109158 3 Milliliter(s) INH Q6 PRN 01/24/2018 05/02/2018 Inactive Claritin 10 mg tablet RxNorm: 183325 1 Tablet(s) PO daily 01/15/2018 05/07/2018 Inactive cyanocobalamin (vit B-12) 1,000 mcg/mL injection solution RxNorm: 179432 Milliliter(s) Inj 01/10/2018 01/10/2018 Inactive hydrocodone 5 mg-acetaminophen 325 mg tablet RxNorm: 586613 1-2 Tablet(s) PO Q6 as needed for pain 01/09/2018 02/07/2018 Inactive cyanocobalamin (vit B-12) 1,000 mcg/mL injection solution RxNorm: 733659 Milliliter(s) Inj 12/27/2017 12/27/2017 Inactive cyanocobalamin (vit B-12) 1,000 mcg/mL injection solution RxNorm: 610357 1 Milliliter(s) Inj 12/12/2017 12/12/2017 Inactive Zofran ODT 4 mg disintegrating tablet RxNorm: 519597 1 Tablet(s) PO TID as needed 12/08/2017 12/09/2017 Inactive hydrocodone 2.5 mg-guaifenesin 200 mg/5 mL oral solution RxNorm: 727171 5 Milliliter(s) PO 12/04/2017 05/06/2018 Inactive doxycycline hyclate 100 mg capsule RxNorm: 5312489 1 Capsule(s) PO BID 12/04/2017 12/13/2017 Inactive cyanocobalamin (vit B-12) 1,000 mcg/mL injection solution RxNorm: 736459 Milliliter(s) Inj 12/01/2017 12/01/2017 Inactive Flonase Allergy Relief 50 mcg/actuation nasal spray,suspension RxNorm: 4959826 1 [place] NASAL BID 11/20/2017 2018 Inactive cyanocobalamin (vit B-12) 1,000 mcg/mL injection solution RxNorm: 239048 1 Milliliter(s) Inj 11/17/2017 11/17/2017 Inactive hydrocodone 5 mg-acetaminophen 325 mg tablet RxNorm: 934430 1-2 Tablet(s) PO Q6 as needed for pain 11/16/2017 12/15/2017 Inactive cyanocobalamin (vit B-12) 1,000 mcg/mL injection solution RxNorm: 115182 1 Milliliter(s) Inj 11/02/2017 11/02/2017 Inactive hydrocodone 5 mg-acetaminophen 325 mg tablet RxNorm: 155543 1-2 Tablet(s) PO Q6 as needed for pain 10/25/2017 11/15/2017 Inactive Claritin 10 mg tablet RxNorm: 195412 1 Tablet(s) PO daily 10/25/2017 11/19/2017 Inactive albuterol sulfate 2.5 mg/3 mL (0.083 %) solution for nebulization RxNorm: 913386 3 Milliliter(s) INH Q6 PRN 10/25/2017 01/23/2018 Inactive Claritin 10 mg tablet RxNorm: 432461 1 Tablet(s) PO daily 10/25/2017 10/24/2017 Inactive cyanocobalamin (vit B-12) 1,000 mcg/mL injection solution RxNorm: 785102 1 Milliliter(s) Inj 10/20/2017 10/20/2017 Inactive Zoloft 50 mg tablet RxNorm: 090860 TAKE 1 TABLET BY MOUTH ONCE DAILY 10/13/2017 04/03/2018 Inactive Generic For:ZOLOFT 50MG 10/13/2017 8:59:44 AM cyanocobalamin (vit B-12) 1,000 mcg/mL injection solution RxNorm: 863039 Milliliter(s) Inj 10/06/2017 10/06/2017 Inactive liothyronine 5 mcg tablet RxNorm: 357188 TAKE 1 TABLET BY MOUTH TWICE DAILY 10/03/2017 03/25/2018 Inactive Generic For:CYTOMEL 5MCG 10/03/2017 9:13:38 AM cyanocobalamin (vit B-12) 1,000 mcg/mL injection solution RxNorm: 429762 Milliliter(s) Inj 09/21/2017 09/21/2017 Inactive albuterol sulfate 2.5 mg/3 mL (0.083 %) solution for nebulization RxNorm: 063726 3 Milliliter(s) INH Q6 PRN 09/21/2017 10/24/2017 Inactive hydrocodone 5 mg-acetaminophen 325 mg tablet RxNorm: 928335 1-2 Tablet(s) PO Q6 as needed for pain 09/21/2017 10/20/2017 Inactive Kenalog 40 mg/mL suspension for injection RxNorm: 9907844 Milliliter(s) Inj 09/15/2017 09/15/2017 Inactive Keflex 500 mg capsule RxNorm: 166973 1 Capsule(s) PO TID 09/07/2017 09/16/2017 Inactive Please deliver to patient cyanocobalamin (vit B-12) 1,000 mcg/mL injection solution RxNorm: 709874 Milliliter(s) Inj 09/07/2017 09/07/2017 Inactive alprazolam 0.25 mg tablet RxNorm: 475117 1 Tablet(s) PO BID 09/06/2017 02/27/2018 Inactive Aricept 10 mg tablet RxNorm: 131786 1 Tablet(s) PO daily 09/06/2017 06/24/2018 Inactive hydrocodone 5 mg-acetaminophen 325 mg tablet RxNorm: 193108 1-2 Tablet(s) PO Q6 as needed for pain 08/24/2017 09/20/2017 Inactive cyanocobalamin (vit B-12) 1,000 mcg/mL injection solution RxNorm: 914171 Milliliter(s) Inj 08/24/2017 08/24/2017 Inactive Norvasc 5 mg tablet RxNorm: 794117 1 Tablet(s) PO daily 08/18/2017 04/25/2018 Inactive nystatin 100,000 unit/gram topical powder RxNorm: 143351 1 Gram(s) TOP QID 08/17/2017 08/26/2017 Inactive hydrocodone 5 mg-acetaminophen 325 mg tablet RxNorm: 489398 1-2 Tablet(s) PO Q6 as needed for pain 07/25/2017 08/23/2017 Inactive Tamiflu 75 mg capsule RxNorm: 619901 1 Capsule(s) PO BID 07/24/2017 12/11/2017 Inactive nystatin 100,000 unit/gram topical powder RxNorm: 411198 1 Gram(s) TOP QID 07/14/2017 07/22/2017 Inactive levothyroxine 125 mcg tablet RxNorm: 621424 Tablet(s) 1 Tablet(s) PO daily 07/10/2017 01/05/2018 Inactive nystatin 100,000 unit/gram topical powder RxNorm: 090552 1 Gram(s) TOP QID 07/06/2017 07/13/2017 Inactive cyanocobalamin (vit B-12) 1,000 mcg/mL injection solution RxNorm: 022009 Milliliter(s) Inj 07/06/2017 07/06/2017 Inactive Kenalog 40 mg/mL suspension for injection RxNorm: 0830879 1 Milliliter(s) Inj 06/20/2017 06/20/2017 Inactive doxycycline hyclate 100 mg capsule RxNorm: 8034563 1 Capsule(s) PO BID 06/20/2017 06/26/2017 Inactive cyanocobalamin (vit B-12) 1,000 mcg/mL injection solution RxNorm: 744388 Milliliter(s) Inj 06/20/2017 06/20/2017 Inactive Keflex 500 mg capsule RxNorm: 893473 1 Capsule(s) PO TID 06/14/2017 06/23/2017 Inactive Please deliver to patient Mobic 15 mg tablet RxNorm: 432023 1 Tablet(s) PO daily 06/14/2017 04/25/2018 Inactive cyanocobalamin (vit B-12) 1,000 mcg/mL injection solution RxNorm: 215263 Milliliter(s) Inj 06/05/2017 06/05/2017 Inactive buspirone 15 mg tablet RxNorm: 816200 TAKE 1 TABLET BY MOUTH TWICE DAILY 05/31/2017 04/25/2018 Inactive Generic For:BUSPAR 15MG 05/31/2017 9:19:20 AM cyanocobalamin (vit B-12) 1,000 mcg/mL injection solution RxNorm: 583095 Milliliter(s) Inj 05/25/2017 05/25/2017 Inactive hydrocodone 5 mg-acetaminophen 325 mg tablet RxNorm: 204419 1-2 Tablet(s) PO Q6 as needed for pain 05/25/2017 06/23/2017 Inactive amiodarone 200 mg tablet RxNorm: 302601 1/2 Tablet(s) PO daily 05/22/2017 No Stop Date Active cardiology decreased to 100mg daily cyanocobalamin (vit B-12) 1,000 mcg/mL injection solution RxNorm: 576956 Milliliter(s) Inj 05/16/2017 05/16/2017 Inactive Zofran ODT 4 mg disintegrating tablet RxNorm: 351574 1 Tablet(s) PO TID as needed 05/03/2017 05/04/2017 Inactive hydrocodone 5 mg-acetaminophen 325 mg tablet RxNorm: 681890 1-2 Tablet(s) PO Q6 as needed for pain 05/01/2017 05/05/2017 Inactive cyanocobalamin (vit B-12) 1,000 mcg/mL injection solution RxNorm: 768134 1 Milliliter(s) Inj 05/01/2017 05/01/2017 Inactive cyanocobalamin (vit B-12) 1,000 mcg/mL injection solution RxNorm: 428840 INJECT ONE 1 ML EVERY TWO WEEKS 04/26/2017 12/04/2018 Active 04/26/2017 9:08:52 AM Zoloft 50 mg tablet RxNorm: 352194 Tablet(s) TAKE 1 TABLET BY MOUTH DAILY 04/25/2017 10/12/2017 Inactive Generic For:ZOLOFT 50MG cyanocobalamin (vit B-12) 1,000 mcg/mL injection solution RxNorm: 671082 Milliliter(s) Inj 04/18/2017 04/18/2017 Inactive liothyronine 5 mcg tablet RxNorm: 146472 1 Tablet(s) PO BID 04/13/2017 10/02/2017 Inactive cyanocobalamin (vit B-12) 1,000 mcg/mL injection solution RxNorm: 006539 Milliliter(s) Inj 04/06/2017 04/06/2017 Inactive hydrocodone 5 mg-acetaminophen 325 mg tablet RxNorm: 104601 1-2 Tablet(s) PO Q6 as needed for pain 04/06/2017 04/10/2017 Inactive cyanocobalamin (vit B-12) 1,000 mcg/mL injection solution RxNorm: 205203 Milliliter(s) Inj 03/22/2017 03/22/2017 Inactive alprazolam 0.25 mg tablet RxNorm: 498675 1 Tablet(s) PO BID 03/17/2017 12/11/2017 Inactive alprazolam 0.25 mg tablet RxNorm: 017441 1 Tablet(s) PO BID 03/16/2017 09/05/2017 Inactive hydrocodone 5 mg-acetaminophen 325 mg tablet RxNorm: 747234 1-2 Tablet(s) PO Q6 as needed for pain 03/09/2017 03/13/2017 Inactive cyanocobalamin (vit B-12) 1,000 mcg/mL injection solution RxNorm: 832820 Milliliter(s) Inj 03/09/2017 03/09/2017 Inactive cyanocobalamin (vit B-12) 1,000 mcg/mL injection solution RxNorm: 625609 Milliliter(s) Inj 02/23/2017 02/23/2017 Inactive cyanocobalamin (vit B-12) 1,000 mcg/mL injection solution RxNorm: 510558 Milliliter(s) Inj 02/09/2017 02/09/2017 Inactive hydrocodone 5 mg-acetaminophen 325 mg tablet RxNorm: 441236 1-2 Tablet(s) PO Q6 as needed for pain 02/08/2017 02/12/2017 Inactive Topamax 25 mg tablet RxNorm: 463059 1 Tablet(s) PO BID 01/23/2017 05/22/2017 Inactive Generic For:TOPAMAX 25MG 12/06/2016 9:15:13 AM cyanocobalamin (vit B-12) 1,000 mcg/mL injection solution RxNorm: 186437 Milliliter(s) Inj 01/23/2017 01/23/2017 Inactive cyanocobalamin (vit B-12) 1,000 mcg/mL injection solution RxNorm: 624464 Milliliter(s) Inj 01/10/2017 01/10/2017 Inactive hydrocodone 5 mg-acetaminophen 325 mg tablet RxNorm: 041105 1-2 Tablet(s) PO Q6 as needed for pain 01/09/2017 01/13/2017 Inactive cyanocobalamin (vit B-12) 1,000 mcg/mL injection solution RxNorm: 547128 1 Milliliter(s) Inj 12/28/2016 12/28/2016 Inactive cyanocobalamin (vit B-12) 1,000 mcg/mL injection solution RxNorm: 345076 Milliliter(s) Inj 12/14/2016 12/14/2016 Inactive buspirone 15 mg tablet RxNorm: 995367 1 Tablet(s) PO BID 12/12/2016 05/30/2017 Inactive hydrocodone 5 mg-acetaminophen 325 mg tablet RxNorm: 594522 1-2 Tablet(s) PO Q6 as needed for pain 12/08/2016 12/12/2016 Inactive Topamax 25 mg tablet RxNorm: 258527 TAKE 1 TABLET BY MOUTH EVERY DAY AT BEDTIME 12/06/2016 01/22/2017 Inactive Generic For:TOPAMAX 25MG 12/06/2016 9:15:13 AM Lac-Hydrin Five 5 % lotion RxNorm: 482006 1 Gram(s) TOP daily 12/02/2016 05/02/2018 Inactive cyanocobalamin (vit B-12) 1,000 mcg/mL injection solution RxNorm: 062409 Milliliter(s) Inj 11/24/2016 11/24/2016 Inactive Ceftin 500 mg tablet RxNorm: 069067 1 Tablet(s) PO BID 11/11/2016 06/13/2017 Inactive Cipro 500 mg tablet RxNorm: 543929 1 Tablet(s) PO BID 11/11/2016 11/10/2016 Inactive Cipro 500 mg tablet RxNorm: 217781 1 Tablet(s) PO BID 11/11/2016 11/11/2016 Inactive cyanocobalamin (vit B-12) 1,000 mcg/mL injection solution RxNorm: 107949 1 Milliliter(s) Inj 11/07/2016 11/07/2016 Inactive hydrocodone 5 mg-acetaminophen 325 mg tablet RxNorm: 148693 1-2 Tablet(s) PO Q6 as needed for pain 11/02/2016 11/06/2016 Inactive cyanocobalamin (vit B-12) 1,000 mcg/mL injection solution RxNorm: 743003 Milliliter(s) Inj 10/24/2016 10/24/2016 Inactive levothyroxine 125 mcg tablet RxNorm: 445213 Tablet(s) 1 Tablet(s) PO daily 10/24/2016 04/21/2017 Inactive liothyronine 5 mcg tablet RxNorm: 903459 1 Tablet(s) PO BID 10/24/2016 04/12/2017 Inactive hydrocodone 5 mg-acetaminophen 325 mg tablet RxNorm: 493503 1-2 Tablet(s) PO Q6 as needed for pain 10/17/2016 10/21/2016 Inactive Keflex 500 mg capsule RxNorm: 604648 1 Capsule(s) PO TID 10/07/2016 10/06/2016 Inactive Keflex 500 mg capsule RxNorm: 856549 1 Capsule(s) PO TID 10/07/2016 10/16/2016 Inactive Please deliver to patient cyanocobalamin (vit B-12) 1,000 mcg/mL injection solution RxNorm: 840538 1 Milliliter(s) Inj 09/29/2016 09/29/2016 Inactive alprazolam 0.25 mg tablet RxNorm: 123298 1 Tablet(s) PO BID 09/20/2016 03/16/2017 Inactive Cozaar 100 mg tablet RxNorm: 893191 1 Tablet(s) PO daily 09/14/2016 No Stop Date Active metoprolol tartrate 50 mg tablet RxNorm: 689008 1/2 Tablet(s) PO BID 09/14/2016 12/12/2016 Inactive Zoloft 50 mg tablet RxNorm: 099892 Tablet(s) TAKE 1 TABLET BY MOUTH DAILY 09/14/2016 03/12/2017 Inactive Generic For:ZOLOFT 50MG liothyronine 5 mcg tablet RxNorm: 909484 1 Tablet(s) PO BID 09/14/2016 10/23/2016 Inactive Calmoseptine 0.44 %-20.6 % topical ointment RxNorm: 834920 1 Application TOP BID and as needed to sore on buttocks 09/07/2016 No Stop Date Active cyanocobalamin (vit B-12) 1,000 mcg/mL injection solution RxNorm: 308454 Milliliter(s) Inj 08/29/2016 08/29/2016 Inactive hydrocodone 5 mg-acetaminophen 325 mg tablet RxNorm: 059909 1-2 Tablet(s) PO Q6 as needed for pain 08/29/2016 10/16/2016 Inactive levothyroxine 125 mcg tablet RxNorm: 300184 1 Tablet(s) PO daily 08/25/2016 10/23/2016 Inactive Topamax 25 mg tablet RxNorm: 995337 TAKE 1 TABLET BY MOUTH EVERY DAY AT BEDTIME 08/17/2016 12/05/2016 Inactive Generic For:TOPAMAX 25MG 08/17/2016 2:14:37 PM hydrocodone 5 mg-acetaminophen 325 mg tablet RxNorm: 341540 1-2 Tablet(s) PO Q6 as needed for pain 08/11/2016 08/28/2016 Inactive hydrocodone 5 mg-acetaminophen 325 mg tablet RxNorm: 624800 1 -2 Tablet(s) PO Q6 as needed for pain 08/11/2016 08/18/2016 Inactive hydrocodone 5 mg-acetaminophen 325 mg tablet RxNorm: 876502 1 Tablet(s) PO Q6 as needed for pain 08/05/2016 08/10/2016 Inactive cyanocobalamin (vit B-12) 1,000 mcg/mL injection solution RxNorm: 462228 Milliliter(s) Inj 08/04/2016 08/04/2016 Inactive Norvasc 10 mg tablet RxNorm: 699045 1 Tablet(s) PO daily 07/26/2016 07/20/2017 Inactive alprazolam 0.25 mg tablet RxNorm: 909128 1 Tablet(s) PO QHS 07/21/2016 09/19/2016 Inactive Norvasc 5 mg tablet RxNorm: 462543 1 Tablet(s) PO daily 07/21/2016 07/25/2016 Inactive levothyroxine 125 mcg tablet RxNorm: 987015 1 Tablet(s) PO daily 07/21/2016 12/11/2017 Inactive cyanocobalamin (vit B-12) 1,000 mcg/mL injection solution RxNorm: 140007 Milliliter(s) Inj 07/21/2016 07/21/2016 Inactive Zoloft 50 mg tablet RxNorm: 690964 Tablet(s) TAKE 1 TABLET BY MOUTH DAILY 07/21/2016 09/13/2016 Inactive Generic For:ZOLOFT 50MG cyanocobalamin (vit B-12) 1,000 mcg/mL injection solution RxNorm: 827542 1 Milliliter(s) Inj 07/05/2016 07/05/2016 Inactive cyanocobalamin (vit B-12) 1,000 mcg/mL injection solution RxNorm: 842977 1 Milliliter(s) Inj 06/22/2016 06/22/2016 Inactive cyanocobalamin (vit B-12) 1,000 mcg/mL injection solution RxNorm: 333435 Milliliter(s) Inj 06/09/2016 06/09/2016 Inactive Aricept 10 mg tablet RxNorm: 892134 1 Tablet(s) PO daily 05/27/2016 05/21/2017 Inactive Mobic 15 mg tablet RxNorm: 584636 1 Tablet(s) PO daily 05/27/2016 05/21/2017 Inactive levothyroxine 125 mcg tablet RxNorm: 147725 1 Tablet(s) PO daily 05/25/2016 07/20/2016 Inactive cyanocobalamin (vit B-12) 1,000 mcg/mL injection solution RxNorm: 975336 1 Milliliter(s) Inj 05/25/2016 05/25/2016 Inactive doxycycline hyclate 100 mg capsule RxNorm: 9883138 1 Capsule(s) PO BID 05/16/2016 05/15/2016 Inactive doxycycline hyclate 100 mg capsule RxNorm: 1621940 1 Capsule(s) PO BID 05/16/2016 05/22/2016 Inactive cyanocobalamin (vit B-12) 1,000 mcg/mL injection solution RxNorm: 313935 Milliliter(s) Inj 05/10/2016 05/10/2016 Inactive cyanocobalamin (vit B-12) 1,000 mcg/mL injection solution RxNorm: 942015 Milliliter(s) Inj 04/26/2016 04/26/2016 Inactive Topamax 25 mg tablet RxNorm: 852370 1 Tablet(s) PO QPM 04/22/2016 08/16/2016 Inactive cyanocobalamin (vit B-12) 1,000 mcg/mL injection solution RxNorm: 747549 Milliliter(s) 1 Milliliter(s) Inj [id number] 04/11/2016 12/31/2017 Inactive liothyronine 5 mcg tablet RxNorm: 247749 1 Tablet(s) PO BID 04/11/2016 09/13/2016 Inactive cyanocobalamin (vit B-12) 1,000 mcg/mL injection solution RxNorm: 728464 Milliliter(s) Inj 04/11/2016 04/11/2016 Inactive cyanocobalamin (vit B-12) 1,000 mcg/mL injection solution RxNorm: 679470 Milliliter(s) Inj 03/31/2016 03/31/2016 Inactive cyanocobalamin (vit B-12) 1,000 mcg/mL injection solution RxNorm: 350776 1 Milliliter(s) Inj 03/15/2016 03/15/2016 Inactive levothyroxine 125 mcg tablet RxNorm: 789277 1 Tablet(s) PO daily 2016 03/03/2016 Inactive levothyroxine 125 mcg tablet RxNorm: 088840 1 Tablet(s) PO daily 2016 05/24/2016 Inactive cyanocobalamin (vit B-12) 1,000 mcg/mL injection solution RxNorm: 579688 Milliliter(s) Inj 02/25/2016 02/25/2016 Inactive cyanocobalamin (vit B-12) 1,000 mcg/mL injection solution RxNorm: 812669 1 Milliliter(s) Inj 02/02/2016 02/02/2016 Inactive sucralfate 1 gram tablet RxNorm: 653477 1 Tablet(s) PO QHS 01/25/2016 No Stop Date Active amiodarone 200 mg tablet RxNorm: 754933 1/2 Tablet(s) PO BID 01/25/2016 05/21/2017 Inactive cyanocobalamin (vit B-12) 1,000 mcg/mL injection solution RxNorm: 110351 Milliliter(s) Inj 01/18/2016 01/18/2016 Inactive cyanocobalamin (vit B-12) 1,000 mcg/mL injection solution RxNorm: 626190 Milliliter(s) Inj 12/29/2015 12/29/2015 Inactive Topamax 25 mg tablet RxNorm: 334584 1 Tablet(s) PO QPM 12/08/2015 04/05/2016 Inactive cyanocobalamin (vit B-12) 1,000 mcg/mL injection solution RxNorm: 629560 Milliliter(s) Inj 12/08/2015 12/08/2015 Inactive Bactrim DS 800 mg-160 mg tablet RxNorm: 668314 1 Tablet(s) PO BID 11/23/2015 11/22/2015 Inactive cyanocobalamin (vit B-12) 1,000 mcg/mL injection solution RxNorm: 435126 Milliliter(s) Inj 11/23/2015 11/23/2015 Inactive Bactrim DS 800 mg-160 mg tablet RxNorm: 615759 1 Tablet(s) PO BID 11/23/2015 11/29/2015 Inactive cyanocobalamin (vit B-12) 1,000 mcg/mL injection solution RxNorm: 281168 Milliliter(s) Inj 11/11/2015 11/11/2015 Inactive amoxicillin 500 mg capsule RxNorm: 627676 1 Capsule(s) PO TID 11/10/2015 11/19/2015 Inactive Zithromax Z-Henrique 250 mg tablet RxNorm: 534826 1 Tablet(s) PO UD 11/10/2015 01/24/2016 Inactive zpack x 1 amoxicillin 500 mg capsule RxNorm: 473187 1 Capsule(s) PO TID 11/10/2015 11/09/2015 Inactive cyanocobalamin (vit B-12) 1,000 mcg/mL injection solution RxNorm: 966994 1 Milliliter(s) Inj 10/29/2015 10/29/2015 Inactive [place] 3 capsule RxNorm: 1 Capsule(s) PO QAM , 2 Capsules at noon, 1 Capsule QHS 10/13/2015 No Stop Date Active potassium chloride ER 20 mEq tablet,extended release RxNorm: 480602 2 Tablet(s) PO daily at noon 10/13/2015 No Stop Date Active alprazolam 0.25 mg tablet RxNorm: 297092 1 Tablet(s) PO QHS 10/13/2015 07/20/2016 Inactive amiodarone 200 mg tablet RxNorm: 283286 1 Tablet(s) PO BID 10/13/2015 01/24/2016 Inactive cyanocobalamin (vit B-12) 1,000 mcg/mL injection solution RxNorm: 672398 1 Milliliter(s) Inj 10/12/2015 10/12/2015 Inactive Zofran 4 mg tablet RxNorm: 342168 1 Tablet(s) PO daily as needed 10/07/2015 05/24/2016 Inactive Zoloft 50 mg tablet RxNorm: 070335 TAKE 1 TABLET BY MOUTH DAILY 10/05/2015 05/01/2016 Inactive Generic For:ZOLOFT 50MG cyanocobalamin (vit B-12) 1,000 mcg/mL injection solution RxNorm: 756395 1 Milliliter(s) Inj 09/29/2015 09/29/2015 Inactive cyanocobalamin (vit B-12) 1,000 mcg/mL injection solution RxNorm: 132502 1 Milliliter(s) Inj 09/17/2015 09/17/2015 Inactive Norvasc 5 mg tablet RxNorm: 739480 1 Tablet(s) PO daily 09/17/2015 07/20/2016 Inactive liothyronine 5 mcg tablet RxNorm: 718083 1 Tablet(s) PO BID 09/17/2015 03/14/2016 Inactive Zoloft 50 mg tablet RxNorm: 709172 1 Tablet(s) PO daily 09/17/2015 10/04/2015 Inactive buspirone 15 mg tablet RxNorm: 241054 1 Tablet(s) PO BID 09/17/2015 09/10/2016 Inactive buspirone 15 mg tablet RxNorm: 224099 1 Tablet(s) PO BID 09/14/2015 09/16/2015 Inactive Topamax 25 mg tablet RxNorm: 260155 1 Tablet(s) PO QPM 09/03/2015 12/07/2015 Inactive cyanocobalamin (vit B-12) 1,000 mcg/mL injection solution RxNorm: 980714 1 Milliliter(s) Inj 09/03/2015 09/03/2015 Inactive cyanocobalamin (vit B-12) 1,000 mcg/mL injection solution RxNorm: 767194 Milliliter(s) Inj 08/17/2015 08/17/2015 Inactive cyanocobalamin (vit B-12) 1,000 mcg/mL injection solution RxNorm: 179534 Milliliter(s) Inj 08/06/2015 08/06/2015 Inactive levothyroxine 150 mcg tablet RxNorm: 770399 1 Tablet(s) PO daily 07/22/2015 03/03/2016 Inactive Aricept 10 mg tablet RxNorm: 046926 1 Tablet(s) PO daily 07/22/2015 05/26/2016 Inactive Mobic 15 mg tablet RxNorm: 300607 1 Tablet(s) PO daily 07/22/2015 05/26/2016 Inactive cyanocobalamin (vit B-12) 1,000 mcg/mL injection solution RxNorm: 260393 Milliliter(s) Inj 07/22/2015 07/22/2015 Inactive liothyronine 5 mcg tablet RxNorm: 954275 1 Tablet(s) PO BID 07/22/2015 09/16/2015 Inactive cyanocobalamin (vit B-12) 1,000 mcg/mL injection solution RxNorm: 670584 Milliliter(s) Inj 07/08/2015 07/08/2015 Inactive cyanocobalamin (vit B-12) 1,000 mcg/mL injection solution RxNorm: 940756 Milliliter(s) Inj 06/23/2015 06/23/2015 Inactive cyanocobalamin (vit B-12) 1,000 mcg/mL injection solution RxNorm: 448510 1 Milliliter(s) Inj 06/08/2015 06/08/2015 Inactive cyanocobalamin (vit B-12) 1,000 mcg/mL injection solution RxNorm: 846437 Milliliter(s) Inj 05/27/2015 05/27/2015 Inactive Aricept 10 mg tablet RxNorm: 346853 1 Tablet(s) PO daily 05/20/2015 07/21/2015 Inactive Zofran 4 mg tablet RxNorm: 774807 1 Tablet(s) PO daily as needed 05/20/2015 06/18/2015 Inactive alprazolam 0.25 mg tablet RxNorm: 878087 1 Tablet(s) PO BID 05/20/2015 10/12/2015 Inactive Mobic 15 mg tablet RxNorm: 699104 1 Tablet(s) PO daily 05/20/2015 07/21/2015 Inactive tramadol ER 100 mg tablet,extended release 24 hr RxNorm: 917347 1 Tablet(s) PO Q6 as needed 05/13/2015 No Stop Date Active cyanocobalamin (vit B-12) 1,000 mcg/mL injection solution RxNorm: 644625 1 Milliliter(s) Inj 05/12/2015 05/12/2015 Inactive Topamax 25 mg tablet RxNorm: 758865 1 Tablet(s) PO BID (start at one pill at bedtime x 1week then twice daily thereafter) 05/12/2015 09/02/2015 Inactive cyanocobalamin (vit B-12) 1,000 mcg/mL injection kit RxNorm: 650804 kit Inj 04/30/2015 04/30/2015 Inactive cyanocobalamin (vit B-12) 1,000 mcg/mL injection solution RxNorm: 385948 Milliliter(s) Inj 04/16/2015 04/16/2015 Inactive levothyroxine 150 mcg tablet RxNorm: 384326 1 Tablet(s) PO daily 04/08/2015 07/21/2015 Inactive cyanocobalamin (vit B-12) 1,000 mcg/mL injection solution RxNorm: 733496 Milliliter(s) 1 Milliliter(s) Inj [id number] 04/08/2015 04/10/2016 Inactive Cytomel 5 mcg tablet RxNorm: 360902 1 Tablet(s) PO BID 04/08/2015 10/12/2015 Inactive Cytomel 5 mcg tablet RxNorm: 760528 1 Tablet(s) PO BID 04/07/2015 04/07/2015 Inactive Cytomel 5 mcg tablet RxNorm: 415348 1 Tablet(s) PO BID 04/07/2015 04/06/2015 Inactive cyanocobalamin (vit B-12) 1,000 mcg/mL injection solution RxNorm: 861958 Milliliter(s) Inj 04/02/2015 04/02/2015 Inactive cyanocobalamin (vit B-12) 1,000 mcg/mL injection solution RxNorm: 905954 Milliliter(s) Inj 03/18/2015 03/18/2015 Inactive cyanocobalamin (vit B-12) 1,000 mcg/mL injection solution RxNorm: 152332 Milliliter(s) 1 Milliliter(s) Inj [id number] 03/18/2015 04/07/2015 Inactive cyanocobalamin (vit B-12) 1,000 mcg/mL injection solution RxNorm: 089409 1 Milliliter(s) Inj [id number] 03/16/2015 03/17/2015 Inactive cyanocobalamin (vit B-12) 1,000 mcg/mL injection solution RxNorm: 381432 Milliliter(s) Inj 03/03/2015 03/03/2015 Inactive cyanocobalamin (vit B-12) 1,000 mcg/mL injection solution RxNorm: 273926 Milliliter(s) Inj 02/18/2015 02/18/2015 Inactive cyanocobalamin (vit B-12) 1,000 mcg/mL injection solution RxNorm: 457338 Milliliter(s) Inj 02/04/2015 02/04/2015 Inactive cyanocobalamin (vit B-12) 1,000 mcg/mL injection solution RxNorm: 003957 Milliliter(s) Inj 01/22/2015 01/22/2015 Inactive Lac-Hydrin Five 5 % lotion RxNorm: 290719 1 TOP daily 01/13/2015 03/13/2015 Inactive Lac-Hydrin Five 5 % lotion RxNorm: 961561 1 TOP daily 01/13/2015 01/12/2015 Inactive cyanocobalamin (vit B-12) 1,000 mcg/mL injection solution RxNorm: 828322 Milliliter(s) Inj 01/08/2015 01/08/2015 Inactive cyanocobalamin (vit B-12) 1,000 mcg/mL injection solution RxNorm: 377121 Milliliter(s) Inj 12/25/2014 12/25/2014 Inactive levothyroxine 150 mcg tablet RxNorm: 433399 1 Tablet(s) PO daily 12/24/2014 04/07/2015 Inactive tramadol 50 mg tablet RxNorm: 596122 1-2 Tablet(s) PO Q6 as needed 12/17/2014 05/12/2015 Inactive alprazolam 0.25 mg tablet RxNorm: 463407 1 Tablet(s) PO BID 12/17/2014 04/15/2015 Inactive Pradaxa 150 mg capsule RxNorm: 5365688 1 Capsule(s) PO BID 12/16/2014 No Stop Date Active metoprolol tartrate 50 mg tablet RxNorm: 708223 1/2 Tablet(s) PO BID 12/16/2014 09/13/2016 Inactive buspirone 15 mg tablet RxNorm: 198264 1 Tablet(s) PO BID 12/16/2014 09/13/2015 Inactive cyanocobalamin (vit B-12) 1,000 mcg/mL injection solution RxNorm: 412305 1 Milliliter(s) Inj [id number] 12/16/2014 03/15/2015 Inactive cyanocobalamin (vit B-12) 1,000 mcg/mL injection solution RxNorm: 703497 1 Milliliter(s) Inj [id number] 12/16/2014 12/15/2014 Inactive sucralfate 1 gram tablet RxNorm: 645548 Tablet(s) PO QID 12/16/2014 12/10/2015 Inactive cyanocobalamin (vit B-12) 1,000 mcg/mL injection solution RxNorm: 276939 Milliliter(s) Inj 12/10/2014 12/10/2014 Inactive cyanocobalamin (vit B-12) 1,000 mcg/mL injection solution RxNorm: 165667 Milliliter(s) Inj 11/26/2014 11/26/2014 Inactive Zoloft 50 mg tablet RxNorm: 440064 1 Tablet(s) PO daily 11/24/2014 06/21/2015 Inactive Zoloft 50 mg tablet RxNorm: 313338 1 Tablet(s) PO daily 11/24/2014 11/23/2014 Inactive cyanocobalamin (vit B-12) 1,000 mcg/mL injection kit RxNorm: 119389 Milliliter(s) Inj 11/12/2014 11/12/2014 Inactive cyanocobalamin (vit B-12) 1,000 mcg/mL injection solution RxNorm: 154126 Milliliter(s) Inj 10/28/2014 10/28/2014 Inactive [SAVINGS FOR NON-COVERED DRUGS -- [id number], PCN: [id number], Group: [id number], ID# [id number], Questions: . THIS IS NOT INSURANCE.] promethazine oral RxNorm: 8745 oral No Start Date Active tramadol 50 mg tablet RxNorm: 235463 1 Tablet(s) PO TID No Start Date Active digoxin 125 mcg tablet RxNorm: 664824 Tablet(s) PO every other day No Start Date Active furosemide 40 mg tablet RxNorm: 979686 1 Tablet(s) PO daily No Start Date Active Vitamin D3 5,000 unit tablet RxNorm: 434809 1 Tablet(s) PO daily No Start Date Active erythromycin 250 mg capsule,delayed release RxNorm: 595285 1 Capsule(s) PO AC No Start Date Active Protonix 40 mg tablet,delayed release RxNorm: 605667 1 Tablet(s) PO BID No Start Date Active Cozaar 100 mg tablet RxNorm: 317110 1 Tablet(s) PO daily No Start Date 09/13/2016 Inactive sucralfate 1 gram tablet RxNorm: 556414 Tablet(s) PO QID No Start Date 12/15/2014 Inactive amiodarone 200 mg tablet RxNorm: 249078 2 Tablet(s) PO daily No Start Date 10/13/2015 Inactive buspirone 15 mg tablet RxNorm: 378357 1 Tablet(s) PO daily No Start Date 12/15/2014 Inactive potassium chloride ER 20 mEq tablet,extended release RxNorm: 864698 1 Tablet(s) PO daily No Start Date 10/12/2015 Inactive Prilosec 40 mg capsule,delayed release RxNorm: 165850 1 Capsule(s) PO daily No Start Date 09/02/2015 Inactive [place] 3 capsule RxNorm: Capsule(s) PO No Start Date 10/12/2015 Inactive alprazolam 0.25 mg tablet RxNorm: 636180 Tablet(s) PO QHS No Start Date 12/16/2014 Inactive levothyroxine 125 mcg tablet RxNorm: 535920 1 Tablet(s) PO daily No Start Date 12/23/2014 Inactive liothyronine 5 mcg tablet RxNorm: 231079 1 Tablet(s) PO BID No Start Date 07/21/2015 Inactive Mobic 15 mg tablet RxNorm: 977298 Tablet(s) PO daily No Start Date 05/19/2015 Inactive Norvasc 5 mg tablet RxNorm: 631450 1 Tablet(s) PO daily No Start Date 09/16/2015 Inactive Zofran 4 mg tablet RxNorm: 026460 1 Tablet(s) PO daily as needed No Start Date 05/19/2015 Inactive Tamiflu 75 mg capsule RxNorm: 831662 1 Capsule(s) PO BID No Start Date 07/23/2017 Inactive tramadol 50 mg tablet RxNorm: 446498 1 Tablet(s) PO daily as needed No Start Date 12/16/2014 Inactive amiodarone 200 mg tablet RxNorm: 656525 1 Tablet(s) PO daily No Start Date 10/12/2015 Inactive Zofran ODT 4 mg disintegrating tablet RxNorm: 001117 1 Tablet(s) PO TID as needed No Start Date 05/02/2017 Inactive albuterol sulfate 2.5 mg/3 mL (0.083 %) solution for nebulization RxNorm: 166782 3 Milliliter(s) INH Q6 PRN No Start Date 09/20/2017 Inactive meclizine 25 mg tablet RxNorm: 062209 Tablet(s) PO as needed No Start Date 05/24/2016 Inactive Pradaxa 150 mg capsule RxNorm: 4728436 1 Capsule(s) PO daily No Start Date 12/15/2014 Inactive metoprolol tartrate 50 mg tablet RxNorm: 473391 1/2 Tablet(s) PO No Start Date 12/15/2014 Inactive Aricept 10 mg tablet RxNorm: 332620 Tablet(s) PO daily No Start Date 05/19/2015 Inactive Calmoseptine 0.44 %-20.6 % topical ointment RxNorm: 474073 1 Application TOP BID and as needed to sore on buttocks No Start Date 09/06/2016 Inactive Zithromax Z-Henrique 250 mg tablet RxNorm: 270652 1 Tablet(s) PO UD No Start Date 11/09/2015 Inactive zpack x 1 Medication Administered Medication Codes Instructions Start Date Status cyanocobalamin (vit B-12) 1,000 mcg/mL injection solution RxNorm: 567731 Milliliter 11/21/2018 Active cyanocobalamin (vit B-12) 1,000 mcg/mL injection solution RxNorm: 274950 Milliliter 11/08/2018 No longer Active cyanocobalamin (vit B-12) 1,000 mcg/mL injection solution RxNorm: 545765 Milliliter 10/23/2018 No longer Active cyanocobalamin (vit B-12) 1,000 mcg/mL injection solution RxNorm: 829027 Milliliter 10/10/2018 No longer Active cyanocobalamin (vit B-12) 1,000 mcg/mL injection solution RxNorm: 689598 Milliliter 09/27/2018 No longer Active cyanocobalamin (vit B-12) 1,000 mcg/mL injection solution RxNorm: 736011 Milliliter 09/11/2018 No longer Active cyanocobalamin (vit B-12) 1,000 mcg/mL injection solution RxNorm: 086049 Milliliter 08/29/2018 No longer Active cyanocobalamin (vit B-12) 1,000 mcg/mL injection solution RxNorm: 648207 Milliliter 08/15/2018 No longer Active [place]al[place] 40 mg/mL suspension for injection RxNorm: 9716561 Milliliter 08/15/2018 No longer Active cyanocobalamin (vit B-12) 1,000 mcg/mL injection solution RxNorm: 240367 Milliliter 08/01/2018 No longer Active cyanocobalamin (vit B-12) 1,000 mcg/mL injection solution RxNorm: 117197 Milliliter 07/19/2018 No longer Active cyanocobalamin (vit B-12) 1,000 mcg/mL injection solution RxNorm: 059179 Milliliter 07/04/2018 No longer Active cyanocobalamin (vit B-12) 1,000 mcg/mL injection solution RxNorm: 314255 Milliliter 06/20/2018 No longer Active cyanocobalamin (vit B-12) 1,000 mcg/mL injection solution RxNorm: 750500 Milliliter 06/06/2018 No longer Active cyanocobalamin (vit B-12) 1,000 mcg/mL injection solution RxNorm: 778066 Milliliter 05/24/2018 No longer Active cyanocobalamin (vit B-12) 1,000 mcg/mL injection solution RxNorm: 201982 Milliliter 05/09/2018 No longer Active cyanocobalamin (vit B-12) 1,000 mcg/mL injection solution RxNorm: 732300 Milliliter 04/26/2018 No longer Active cyanocobalamin (vit B-12) 1,000 mcg/mL injection solution RxNorm: 159937 Milliliter 04/12/2018 No longer Active cyanocobalamin (vit B-12) 1,000 mcg/mL injection solution RxNorm: 616631 Milliliter 03/30/2018 No longer Active cyanocobalamin (vit B-12) 1,000 mcg/mL injection solution RxNorm: 321194 Milliliter 03/16/2018 No longer Active cyanocobalamin (vit B-12) 1,000 mcg/mL injection solution RxNorm: 422804 Milliliter 03/02/2018 No longer Active cyanocobalamin (vit B-12) 1,000 mcg/mL injection solution RxNorm: 643348 Milliliter 02/08/2018 No longer Active cyanocobalamin (vit B-12) 1,000 mcg/mL injection solution RxNorm: 049546 Milliliter 01/24/2018 No longer Active cyanocobalamin (vit B-12) 1,000 mcg/mL injection solution RxNorm: 251803 Milliliter 01/10/2018 No longer Active cyanocobalamin (vit B-12) 1,000 mcg/mL injection solution RxNorm: 321156 Milliliter 12/27/2017 No longer Active cyanocobalamin (vit B-12) 1,000 mcg/mL injection solution RxNorm: 447510 1Milliliter 12/12/2017 No longer Active cyanocobalamin (vit B-12) 1,000 mcg/mL injection solution RxNorm: 023759 Milliliter 12/01/2017 No longer Active cyanocobalamin (vit B-12) 1,000 mcg/mL injection solution RxNorm: 870559 1[facility] 11/17/2017 No longer Active cyanocobalamin (vit B-12) 1,000 mcg/mL injection solution RxNorm: 717072 1[facility] 11/02/2017 No longer Active cyanocobalamin (vit B-12) 1,000 mcg/mL injection solution RxNorm: 573484 1[facility] 10/20/2017 No longer Active cyanocobalamin (vit B-12) 1,000 mcg/mL injection solution RxNorm: 504499 [facility] 10/06/2017 No longer Active cyanocobalamin (vit B-12) 1,000 mcg/mL injection solution RxNorm: 910349 [facility] 09/21/2017 No longer Active Kenalog 40 mg/mL suspension for injection RxNorm: 7462817 [facility] 09/15/2017 No longer Active cyanocobalamin (vit B-12) 1,000 mcg/mL injection solution RxNorm: 422714 [facility] 09/07/2017 No longer Active cyanocobalamin (vit B-12) 1,000 mcg/mL injection solution RxNorm: 137925 [facility] 08/24/2017 No longer Active cyanocobalamin (vit B-12) 1,000 mcg/mL injection solution RxNorm: 370192 [facility] 07/06/2017 No longer Active Kenalog 40 mg/mL suspension for injection RxNorm: 6731451 1[facility] 06/20/2017 No longer Active cyanocobalamin (vit B-12) 1,000 mcg/mL injection solution RxNorm: [id number] [facility] 06/20/2017 No longer Active cyanocobalamin (vit B-12) 1,000 mcg/mL injection solution RxNorm: 773896 [facility] 06/05/2017 No longer Active cyanocobalamin (vit B-12) 1,000 mcg/mL injection solution RxNorm: 070398 [facility] 05/25/2017 No longer Active cyanocobalamin (vit B-12) 1,000 mcg/mL injection solution RxNorm: 069104 [facility] 05/16/2017 No longer Active cyanocobalamin (vit B-12) 1,000 mcg/mL injection solution RxNorm: 566400 1[facility] 05/01/2017 No longer Active cyanocobalamin (vit B-12) 1,000 mcg/mL injection solution RxNorm: 307384 [facility] 04/18/2017 No longer Active cyanocobalamin (vit B-12) 1,000 mcg/mL injection solution RxNorm: 540363 [facility] 04/06/2017 No longer Active cyanocobalamin (vit B-12) 1,000 mcg/mL injection solution RxNorm: 697291 [facility] 03/22/2017 No longer Active cyanocobalamin (vit B-12) 1,000 mcg/mL injection solution RxNorm: 424584 [facility] 03/09/2017 No longer Active cyanocobalamin (vit B-12) 1,000 mcg/mL injection solution RxNorm: 876969 [facility] 02/23/2017 No longer Active cyanocobalamin (vit B-12) 1,000 mcg/mL injection solution RxNorm: 983799 [facility] 02/09/2017 No longer Active cyanocobalamin (vit B-12) 1,000 mcg/mL injection solution RxNorm: 571255 [facility] 01/23/2017 No longer Active cyanocobalamin (vit B-12) 1,000 mcg/mL injection solution RxNorm: 445213 [facility] 01/10/2017 No longer Active cyanocobalamin (vit B-12) 1,000 mcg/mL injection solution RxNorm: 006328 1[facility] 12/28/2016 No longer Active cyanocobalamin (vit B-12) 1,000 mcg/mL injection solution RxNorm: 649652 [facility] 12/14/2016 No longer Active cyanocobalamin (vit B-12) 1,000 mcg/mL injection solution RxNorm: 556781 [facility] 11/24/2016 No longer Active cyanocobalamin (vit B-12) 1,000 mcg/mL injection solution RxNorm: 663217 1[facility] 11/07/2016 No longer Active cyanocobalamin (vit B-12) 1,000 mcg/mL injection solution RxNorm: 819797 [facility] 10/24/2016 No longer Active cyanocobalamin (vit B-12) 1,000 mcg/mL injection solution RxNorm: 760110 1[facility] 09/29/2016 No longer Active cyanocobalamin (vit B-12) 1,000 mcg/mL injection solution RxNorm: 897446 [facility] 08/29/2016 No longer Active cyanocobalamin (vit B-12) 1,000 mcg/mL injection solution RxNorm: 631134 [facility] 08/04/2016 No longer Active cyanocobalamin (vit B-12) 1,000 mcg/mL injection solution RxNorm: 003884 [facility] 07/21/2016 No longer Active cyanocobalamin (vit B-12) 1,000 mcg/mL injection solution RxNorm: 268940 1[facility] 07/05/2016 No longer Active cyanocobalamin (vit B-12) 1,000 mcg/mL injection solution RxNorm: 909462 1[facility] 06/22/2016 No longer Active cyanocobalamin (vit B-12) 1,000 mcg/mL injection solution RxNorm: 598472 [facility] 06/09/2016 No longer Active cyanocobalamin (vit B-12) 1,000 mcg/mL injection solution RxNorm: 535663 1[facility] 05/25/2016 No longer Active cyanocobalamin (vit B-12) 1,000 mcg/mL injection solution RxNorm: 815675 [facility] 05/10/2016 No longer Active cyanocobalamin (vit B-12) 1,000 mcg/mL injection solution RxNorm: 676395 [facility] 04/26/2016 No longer Active cyanocobalamin (vit B-12) 1,000 mcg/mL injection solution RxNorm: 081818 [facility] 04/11/2016 No longer Active cyanocobalamin (vit B-12) 1,000 mcg/mL injection solution RxNorm: 537920 [facility] 03/31/2016 No longer Active cyanocobalamin (vit B-12) 1,000 mcg/mL injection solution RxNorm: 947986 1[facility] 03/15/2016 No longer Active cyanocobalamin (vit B-12) 1,000 mcg/mL injection solution RxNorm: 114380 [facility] 02/25/2016 No longer Active cyanocobalamin (vit B-12) 1,000 mcg/mL injection solution RxNorm: 536521 1[facility] 02/02/2016 No longer Active cyanocobalamin (vit B-12) 1,000 mcg/mL injection solution RxNorm: 202673 [facility] 01/18/2016 No longer Active cyanocobalamin (vit B-12) 1,000 mcg/mL injection solution RxNorm: 757906 [facility] 12/29/2015 No longer Active cyanocobalamin (vit B-12) 1,000 mcg/mL injection solution RxNorm: 087075 [facility] 12/08/2015 No longer Active cyanocobalamin (vit B-12) 1,000 mcg/mL injection solution RxNorm: 182234 [facility] 11/23/2015 No longer Active cyanocobalamin (vit B-12) 1,000 mcg/mL injection solution RxNorm: 128990 [facility] 11/11/2015 No longer Active cyanocobalamin (vit B-12) 1,000 mcg/mL injection solution RxNorm: 142667 1[facility] 10/29/2015 No longer Active cyanocobalamin (vit B-12) 1,000 mcg/mL injection solution RxNorm: 462470 1[facility] 10/12/2015 No longer Active cyanocobalamin (vit B-12) 1,000 mcg/mL injection solution RxNorm: 812999 1[facility] 09/29/2015 No longer Active cyanocobalamin (vit B-12) 1,000 mcg/mL injection solution RxNorm: 115994 1[facility] 09/17/2015 No longer Active cyanocobalamin (vit B-12) 1,000 mcg/mL injection solution RxNorm: 407919 1[facility] 09/03/2015 No longer Active cyanocobalamin (vit B-12) 1,000 mcg/mL injection solution RxNorm: 719608 [facility] 08/17/2015 No longer Active cyanocobalamin (vit B-12) 1,000 mcg/mL injection solution RxNorm: 705628 [facility] 08/06/2015 No longer Active cyanocobalamin (vit B-12) 1,000 mcg/mL injection solution RxNorm: 060090 [facility] 07/22/2015 No longer Active cyanocobalamin (vit B-12) 1,000 mcg/mL injection solution RxNorm: 382938 [facility] 07/08/2015 No longer Active cyanocobalamin (vit B-12) 1,000 mcg/mL injection solution RxNorm: 667262 [facility] 06/23/2015 No longer Active cyanocobalamin (vit B-12) 1,000 mcg/mL injection solution RxNorm: 856496 1[facility] 06/08/2015 No longer Active cyanocobalamin (vit B-12) 1,000 mcg/mL injection solution RxNorm: 649051 [facility] 05/27/2015 No longer Active cyanocobalamin (vit B-12) 1,000 mcg/mL injection solution RxNorm: 561724 1[facility] 05/12/2015 No longer Active cyanocobalamin (vit B-12) 1,000 mcg/mL injection kit RxNorm: 509184 kit 04/30/2015 No longer Active cyanocobalamin (vit B-12) 1,000 mcg/mL injection solution RxNorm: 107373 [facility] 04/16/2015 No longer Active cyanocobalamin (vit B-12) 1,000 mcg/mL injection solution RxNorm: 966798 [facility] 04/02/2015 No longer Active cyanocobalamin (vit B-12) 1,000 mcg/mL injection solution RxNorm: 098554 [facility] 03/18/2015 No longer Active cyanocobalamin (vit B-12) 1,000 mcg/mL injection solution RxNorm: 000720 [facility] 03/03/2015 No longer Active cyanocobalamin (vit B-12) 1,000 mcg/mL injection solution RxNorm: 941017 [facility] 02/18/2015 No longer Active cyanocobalamin (vit B-12) 1,000 mcg/mL injection solution RxNorm: 159998 [facility] 02/04/2015 No longer Active cyanocobalamin (vit B-12) 1,000 mcg/mL injection solution RxNorm: 690583 [facility] 01/22/2015 No longer Active cyanocobalamin (vit B-12) 1,000 mcg/mL injection solution RxNorm: 133201 [facility] 01/08/2015 No longer Active cyanocobalamin (vit B-12) 1,000 mcg/mL injection solution RxNorm: 656599 [facility] 12/25/2014 No longer Active cyanocobalamin (vit B-12) 1,000 mcg/mL injection solution RxNorm: 262254 [facility] 12/10/2014 No longer Active cyanocobalamin (vit B-12) 1,000 mcg/mL injection solution RxNorm: 102662 [facility] 11/26/2014 No longer Active cyanocobalamin (vit B-12) 1,000 mcg/mL injection kit RxNorm: 312139 [facility] 11/12/2014 No longer Active cyanocobalamin (vit B-12) 1,000 mcg/mL injection solution RxNorm: 988875 [facility] 10/28/2014 No longer Active Immunizations Vaccine Codes Date Status Influenza CVX: 141 03/16/2018 completed Influenza CVX: 141 03/22/2017 completed Pneumococcal (Adult) CVX: 33 05/25/2016 completed Influenza CVX: 141 03/15/2016 completed Assessments Condition Codes Effective Dates 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 ICD-9: 281.0 11/21/2018 Vitamin B12 deficiency anemia, unspecified ICD-10: D51.9 ICD-9: 281.1 11/08/2018 Atrophy of thyroid (acquired) ICD-10: E03.4 ICD-9: 244.8 10/29/2018 Essential (primary) hypertension ICD-10: I10 ICD-9: 401.9 10/29/2018 Chronic atrial fibrillation ICD-10: I48.2 ICD-9: 427.31 10/29/2018 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.9 ICD-9: 553.3 10/29/2018 Cough ICD-10: R05 ICD-9: 786.2 10/29/2018 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 ICD-9: 281.1 09/27/2018 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 ICD-9: 266.2 09/05/2018 Type 2 diabetes mellitus without complications ICD-10: E11.9 ICD-9: 250.00 09/05/2018 Acute bronchitis due to other specified organisms ICD-10: J20.8 ICD-9: 466.0 08/15/2018 Encounter for immunization ICD-10: Z23 ICD-9: V03.82 03/16/2018 Pain in left shoulder ICD-10: M25.512 ICD-9: 719.41 02/26/2018 Pain in right shoulder ICD-10: M25.511 ICD-9: 719.41 02/26/2018 Nausea ICD-10: R11.0 ICD-9: 787.02 12/12/2017 Acute bronchitis due to Hemophilus influenzae ICD-10: J20.1 ICD-9: 466.0 12/04/2017 Acute upper respiratory infection, unspecified ICD-10: J06.9 [...] transit constipation ICD-10: K59.01 ICD-9: 564.01 07/06/2017 Candidiasis of skin and nail ICD-10: B37.2 ICD-9: 112.3 07/06/2017 Acute laryngopharyngitis ICD-10: J06.0 ICD-9: 465.0 06/20/2017 Encounter for general adult medical examination with abnormal findings ICD-10: Z00.01 ICD-9: V70.0 06/05/2017 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 ICD-9: 733.6 03/23/2017 Other fatigue ICD-10: R53.83 ICD-9: 780.79 03/23/2017 Chest pain on breathing ICD-10: R07.1 ICD-9: 786.52 03/23/2017 Encounter for immunization ICD-10: Z23 ICD-9: [...] ICD-10: D17.23 ICD-9: 214.1 05/25/2016 Encounter for screening mammogram for malignant [...] ICD-9: 300.00 01/13/2015 ESSENTIAL HYPERTENSION ICD-9: 401.9 01/13/2015 Hypothyroidism ICD-9: 244.9 12/16/2014 DIABETES TYPE II ICD-9: 250.00 12/16/2014 Reason For Visit Reason For Visit Effective Dates Notes cough 10/29/2018 hypertension 09/05/2018 cough 08/15/2018 cough 05/03/2018 She takes claritin daily and has flonase but she doesn't use it per her daughter. shoulder pain 02/26/2018 cough 12/12/2017 shortness of breath 12/04/2017 cough [...] headache 05/19/2015 headache 05/12/2015 she reports she can't sleep headache 01/13/2015 she reports she can't sleep hypertension 12/16/2014 Results Observation Observation Code Item Item Code Result Date Microalbumin Obr018 MicroAlb <0.7 mg/dL 09/11/2018 Tsh Ord6 TSH (3rd IS) 6.48 uIU/mL 09/10/2018 Free T4 Bbk578 FREE T4 0.89 ng/dL 09/10/2018 Lipid Ord30 CHOL 177 mg/dL 09/10/2018 Lipid Ord30 HDL 64.0 mg/dl 09/10/2018 Lipid Ord30 TRIG 126 mg/dL 09/10/2018 Lipid Ord30 LDL 88 mg/dL 09/10/2018 Lipid Ord30 C/HDL 2.8 Ratio 09/10/2018 Comp Metabolic Whv694 NA 139 mEq/L 09/10/2018 Comp Metabolic Rkr019 K 4.8 mEq/L 09/10/2018 Comp Metabolic Igk821 CL 103 mEq/L 09/10/2018 Comp Metabolic Wpr788 CO2 25.0 mEq/L 09/10/2018 Comp Metabolic Xix817 ANION GAP 16 09/10/2018 Comp Metabolic Opu959 GLUCOSE 104 mg/dL 09/10/2018 Comp Metabolic Azw505 Creat 1.0 mg/dL 09/10/2018 Comp Metabolic Fih751 eGFR 54 ml/min/1.73m2 09/10/2018 Comp Metabolic Dhg536 BUN 25 mg/dL 09/10/2018 Comp Metabolic Wdd333 B/C Ratio 24.3 Ratio 09/10/2018 Comp Metabolic Lnh797 CALCIUM 9.3 mg/dL 09/10/2018 Comp Metabolic Lnx683 ALK PHOS 71 U/L 09/10/2018 Comp Metabolic Cqc787 AST(SGOT) 25 U/L 09/10/2018 Comp Metabolic Smu296 ALT(SGPT) 28 U/L 09/10/2018 Comp Metabolic Fae140 BILI T 0.7 mg/dL 09/10/2018 Comp Metabolic Cbt788 ALBUMIN 4.2 g/dL 09/10/2018 Comp Metabolic Ehy362 TPRO 6.5 g/dL 09/10/2018 Comp Metabolic Jop480 GLOB 2.3 g/dL 09/10/2018 Comp Metabolic Vnm468 A/G Ratio 1.8 Ratio 09/10/2018 Comp Metabolic Rzf401 Osmo 282 mOsmo 09/10/2018 Cbc With Differential Ord2 WBC 6.95 K/ul 09/10/2018 Cbc With Differential Ord2 RBC 4.62 M/ul 09/10/2018 Cbc With Differential Ord2 HGB 12.8 g/dl 09/10/2018 Cbc With Differential Ord2 HCT 41.1 % 09/10/2018 Cbc With Differential Ord2 Neut% 55.7 % 09/10/2018 Cbc With Differential Ord2 Lymph% 32.2 % 09/10/2018 Cbc With Differential Ord2 MCV 89.0 fl 09/10/2018 Cbc With Differential Ord2 MCH 27.7 pg 09/10/2018 Cbc With Differential Ord2 [place]% 8.8 % 09/10/2018 Cbc With Differential Ord2 MCHC 31.1 pg 09/10/2018 Cbc With Differential Ord2 Eos% 2.3 % 09/10/2018 Cbc With Differential Ord2 PLT 189 K/ul 09/10/2018 Cbc With Differential Ord2 Baso% 1.0 % 09/10/2018 Cbc With Differential Ord2 RDW 14.7 % 09/10/2018 Cbc With Differential Ord2 Neut ABS# 3.87 K/ul 09/10/2018 Cbc With Differential Ord2 Lymph ABS# 2.24 K/ul 09/10/2018 Cbc With Differential Ord2 [place] ABS# 0.6 K/ul 09/10/2018 Cbc With Differential Ord2 Eos ABS# 0.2 K/ul 09/10/2018 Cbc With Differential Ord2 Baso ABS# 0.1 K/ul 09/10/2018 %Hba1C Azh425 % HbA1c 02783- 6 6.0 % 09/10/2018 %Hba1C Lyt951 Gluc Ave 126 mg/dL 09/10/2018 Test(s) Not Perfromed [id number] Test(s) Not Performed Test(s) Not Performed. See Below: 09/10/2018 Test(s) Not Perfromed [id number] TEST NAME Microalbumin 09/10/2018 Test(s) Not Perfromed [id number] Rejection Reason Patient Unable to Void 09/10/2018 Test(s) Not Perfromed [id number] COMMENT Patient to deliver sample to the lab at a later date 09/10/2018 Test(s) Not Perfromed AYN1371 [employer] Property [employer] Favio Mulligan 09/10/2018 Lipid Ord30 CHOL 174 mg/dL 05/29/2018 Lipid Ord30 HDL 49.0 mg/dl 05/29/2018 Lipid Ord30 TRIG 200 mg/dL 05/29/2018 Lipid Ord30 LDL 85 mg/dL 05/29/2018 Lipid Ord30 C/HDL 3.6 Ratio 05/29/2018 Tsh Ord6 TSH (3rd IS) 3.20 uIU/mL 02/26/2018 Free T4 Vxp184 FREE T4 0.99 ng/dL 02/26/2018 Cbc With Differential Ord2 WBC 6.39 K/ul 02/26/2018 Cbc With Differential Ord2 RBC 4.67 M/ul 02/26/2018 Cbc With Differential Ord2 HGB 13.3 g/dl 02/26/2018 Cbc With Differential Ord2 HCT 42.1 % 02/26/2018 Cbc With Differential Ord2 Neut% 57.6 % 02/26/2018 Cbc With Differential Ord2 MCV 90.1 fl 02/26/2018 Cbc With Differential Ord2 Lymph% 28.2 % 02/26/2018 Cbc With Differential Ord2 MCH 28.5 pg 02/26/2018 Cbc With Differential Ord2 [place]% 10.3 % 02/26/2018 Cbc With Differential Ord2 MCHC 31.6 pg 02/26/2018 Cbc With Differential Ord2 Eos% 3.3 % 02/26/2018 Cbc With Differential Ord2 PLT 239 K/ul 02/26/2018 Cbc With Differential Ord2 Baso% 0.6 % 02/26/2018 Cbc With Differential Ord2 RDW 14.7 % 02/26/2018 Cbc With Differential Ord2 Neut ABS# 3.68 K/ul 02/26/2018 Cbc With Differential Ord2 Lymph ABS# 1.80 K/ul 02/26/2018 Cbc With Differential Ord2 [place] ABS# 0.7 K/ul 02/26/2018 Cbc With Differential Ord2 Eos ABS# 0.2 K/ul 02/26/2018 Cbc With Differential Ord2 Baso ABS# 0.0 K/ul 02/26/2018 B12 Iyd807 B12 889.00 pg/ml 02/26/2018 Digoxin Ord9 DIGOXIN 0.7 NG/ML 11/23/2017 Comp Metabolic Pdb135 NA 142 mEq/L 11/23/2017 Comp Metabolic Jpj462 K 4.9 mEq/L 11/23/2017 Comp Metabolic Ojy242 CL 112 mEq/L 11/23/2017 Comp Metabolic Yun005 CO2 18.0 mEq/L 11/23/2017 Comp Metabolic Dqw674 ANION GAP 17 11/23/2017 Comp Metabolic Onq069 GLUCOSE 123 mg/dL 11/23/2017 Comp Metabolic Rnb979 Creat 1.0 mg/dL 11/23/2017 Comp Metabolic Xxp501 eGFR 59 ml/min/1.73m2 11/23/2017 Comp Metabolic Pcp211 BUN 24 mg/dL 11/23/2017 Comp Metabolic Ccl244 B/C Ratio 25.0 Ratio 11/23/2017 Comp Metabolic Wqv018 CALCIUM 9.4 mg/dL 11/23/2017 Comp Metabolic Dsf882 ALK PHOS 56 U/L 11/23/2017 Comp Metabolic Rpz016 AST(SGOT) 17 U/L 11/23/2017 Comp Metabolic Noj714 ALT(SGPT) 16 U/L 11/23/2017 Comp Metabolic Frl951 BILI T 0.7 mg/dL 11/23/2017 Comp Metabolic Ckj747 ALBUMIN 3.8 g/dL 11/23/2017 Comp Metabolic Zlt057 TPRO 6.2 g/dL 11/23/2017 Comp Metabolic Brv359 GLOB 2.4 g/dL 11/23/2017 Comp Metabolic Nxj858 A/G Ratio 1.6 Ratio 11/23/2017 Comp Metabolic Vvy628 Osmo 289 mOsmo 11/23/2017 Free T4 Kak157 FREE T4 1.04 ng/dL 11/23/2017 %Hba1C Mxr955 % HbA1c 73046- 6 6.4 % 11/23/2017 %Hba1C Wkp548 Gluc Ave 137 mg/dL 11/23/2017 Lipid Ord30 CHOL 179 mg/dL 11/23/2017 Lipid Ord30 HDL 51.0 mg/dl 11/23/2017 Lipid Ord30 TRIG 134 mg/dL 11/23/2017 Lipid Ord30 LDL 101 mg/dL 11/23/2017 Lipid Ord30 C/HDL 3.5 Ratio 11/23/2017 Tsh Ord6 TSH (3rd IS) 1.00 uIU/mL 11/23/2017 Microalbumin Xwr255 MicroAlb <0.7 mg/dL 11/23/2017 Comp Metabolic Bdv329 NA 141 mEq/L 01/23/2017 Comp Metabolic Fgf664 K 4.5 mEq/L 01/23/2017 Comp Metabolic Cjh821 CL 107 mEq/L 01/23/2017 Comp Metabolic Fnr679 CO2 21.0 mEq/L 01/23/2017 Comp Metabolic Vqr287 ANION GAP 18 01/23/2017 Comp Metabolic Gcx945 GLUCOSE 138 mg/dL 01/23/2017 Comp Metabolic Mju846 Creat 1.0 mg/dL 01/23/2017 Comp Metabolic Lyq004 eGFR 56 ml/min/1.73m2 01/23/2017 Comp Metabolic Eyg517 BUN 26 mg/dL 01/23/2017 Comp Metabolic Grb163 B/C Ratio 25.7 Ratio 01/23/2017 Comp Metabolic Eof853 CALCIUM 9.0 mg/dL 01/23/2017 Comp Metabolic Iai493 ALK PHOS 37 U/L 01/23/2017 Comp Metabolic Lyg554 AST(SGOT) 20 U/L 01/23/2017 Comp Metabolic Cvm610 ALT(SGPT) 25 U/L 01/23/2017 Comp Metabolic Dtj009 BILI T 0.9 mg/dL 01/23/2017 Comp Metabolic Vyu262 ALBUMIN 3.8 g/dL 01/23/2017 Comp Metabolic Hem262 TPRO 6.5 g/dL 01/23/2017 Comp Metabolic Gmd244 GLOB 2.7 g/dL 01/23/2017 Comp Metabolic Ppg966 A/G Ratio 1.4 Ratio 01/23/2017 Comp Metabolic Nmv613 Osmo 288 mOsmo 01/23/2017 Free T4 Xau920 FREE T4 1.05 ng/dL 01/23/2017 %Hba1C Pug110 % HbA1c 56913- 6 6.1 % 01/23/2017 %Hba1C Qtk714 Gluc Ave 128 mg/dL 01/23/2017 Tsh Ord6 hTSH II 1.68 uIU/mL 01/23/2017 Culture Urine [id number] URINE CULTURE SEE NOTES 11/10/2016 Culture Urine [id number] Continued Results 11/10/2016 Urine Culture Ucult Complete [...] Ord15 CALCIUM 9.3 mg/dL 09/29/2016 Free T4 Ivf037 FREE T4 0.99 ng/dL 09/07/2016 Cbc With [...] 30.0 pg 09/07/2016 Cbc With Differential Ord2 [place]% 9.8 % 09/07/2016 Cbc With Differential Ord2 MCHC 32.7 pg 09/07/2016 Cbc With Differential Ord2 Eos% 2.0 % 09/07/2016 Cbc With Differential Ord2 PLT 198 K/ul 09/07/2016 Cbc With Differential Ord2 Baso% 0.6 % 09/07/2016 Cbc With Differential Ord2 RDW 14.5 % 09/07/2016 Cbc With Differential Ord2 Neut ABS# 3.85 K/ul 09/07/2016 Cbc With Differential Ord2 Lymph ABS# 1.75 K/ul 09/07/2016 Cbc With Differential Ord2 [place] ABS# 0.6 K/ul 09/07/2016 Cbc With Differential Ord2 Eos ABS# 0.1 K/ul 09/07/2016 Cbc With Differential Ord2 Baso ABS# 0.0 K/ul 09/07/2016 Tsh Ord6 hTSH II 1.41 uIU/mL 09/07/2016 Culture Urine [id number] URINE CULTURE SEE NOTES 06/27/2016 Lipid Ord30 CHOL 196 mg/dL 06/22/2016 Lipid Ord30 HDL 63.0 mg/dl 06/22/2016 Lipid Ord30 TRIG 154 mg/dL 06/22/2016 Lipid Ord30 LDL 102 mg/dL 06/22/2016 Lipid Ord30 C/HDL 3.1 Ratio 06/22/2016 Hepatic Brx211 ALBUMIN 4.2 g/dL 06/22/2016 Hepatic Oga112 TPRO 7.0 g/dL 06/22/2016 Hepatic Fti275 GLOB 2.8 g/dL 06/22/2016 Hepatic Vtu970 A/G Ratio 1.5 Ratio 06/22/2016 Hepatic Dpu355 ALK PHOS 54 U/L 06/22/2016 Hepatic Kvv486 ALT(SGPT) 30 U/L 06/22/2016 Hepatic Mdc421 AST(SGOT) 24 U/L 06/22/2016 Hepatic Deg529 BILI T 1.1 mg/dL 06/22/2016 Hepatic Zdo503 BILI D 0.2 mg/dL 06/22/2016 Hepatic Dlw255 BILI I 0.9 mg/dL 06/22/2016 Comp Metabolic Pcc220 NA 139 mEq/L 06/14/2016 Comp Metabolic Twa031 K 4.6 mEq/L 06/14/2016 Comp Metabolic Rht516 CL 108 mEq/L 06/14/2016 Comp Metabolic Kmi371 CO2 22.0 mEq/L 06/14/2016 Comp Metabolic Nok617 ANION GAP 14 06/14/2016 Comp Metabolic Bnt139 GLUCOSE 114 mg/dL 06/14/2016 Comp Metabolic Ytl013 Creat 1.2 mg/dL 06/14/2016 Comp Metabolic Hjq548 eGFR 48 ml/min/1.73m2 06/14/2016 Comp Metabolic Apy074 BUN 24 mg/dL 06/14/2016 Comp Metabolic Kmq584 B/C Ratio 20.9 Ratio 06/14/2016 Comp Metabolic Wgb561 CALCIUM 9.9 mg/dL 06/14/2016 Comp Metabolic Knj863 ALK PHOS 47 U/L 06/14/2016 Comp Metabolic Ghz728 AST(SGOT) 28 U/L 06/14/2016 Comp Metabolic Sfz406 ALT(SGPT) 32 U/L 06/14/2016 Comp Metabolic Mra320 BILI T 0.9 mg/dL 06/14/2016 Comp Metabolic Nkc257 ALBUMIN 4.1 g/dL 06/14/2016 Comp Metabolic Lri108 TPRO 6.9 g/dL 06/14/2016 Comp Metabolic Dkg379 GLOB 2.8 g/dL 06/14/2016 Comp Metabolic Wvp078 A/G Ratio 1.5 Ratio 06/14/2016 Comp Metabolic Snk545 Osmo 282 mOsmo 06/14/2016 Tsh Ord6 hTSH II 1.26 uIU/mL 06/14/2016 Free T4 Yop502 FREE T4 1.09 ng/dL 06/14/2016 Tsh Ord6 hTSH II 0.28 uIU/mL 02/02/2016 Digoxin Ord9 DIGOXIN 0.7 NG/ML 02/02/2016 Free T4 Joo744 FREE T4 1.23 ng/dL 02/02/2016 Hepatic Yif514 ALBUMIN 4.0 g/dL 02/02/2016 Hepatic Cgx703 TPRO 7.0 g/dL 02/02/2016 Hepatic Kzk979 GLOB 3.0 g/dL 02/02/2016 Hepatic Aqj183 A/G Ratio 1.3 Ratio 02/02/2016 Hepatic Vtz667 ALK PHOS 57 U/L 02/02/2016 Hepatic Srm638 ALT(SGPT) 62 U/L 02/02/2016 Hepatic Nio993 AST(SGOT) 54 U/L 02/02/2016 Hepatic Dry334 BILI T 0.8 mg/dL 02/02/2016 Hepatic Pgk203 BILI D 0.2 mg/dL 02/02/2016 Hepatic Ixn560 BILI I 0.6 mg/dL 02/02/2016 Urine Culture Ucult Preliminary No Growth Day 1 11/25/2015 Urine Culture Ucult Complete No Growth Day 2 11/25/2015 Hepatic Pze407 ALBUMIN 3.9 g/dL 11/11/2015 Hepatic Daa306 TPRO 7.0 g/dL 11/11/2015 Hepatic Zeq986 GLOB 3.1 g/dL 11/11/2015 Hepatic Qxy222 A/G Ratio 1.3 Ratio 11/11/2015 Hepatic Huj117 ALK PHOS 63 U/L 11/11/2015 Hepatic Veo645 ALT(SGPT) 107 U/L 11/11/2015 Hepatic Ijk177 AST(SGOT) 101 U/L 11/11/2015 Hepatic Jlg344 BILI T 0.6 mg/dL 11/11/2015 Hepatic Ivb853 BILI D 0.1 mg/dL 11/11/2015 Hepatic Zvt651 BILI I 0.5 mg/dL 11/11/2015 Comp Metabolic Ohh804 NA 138 mEq/L 10/29/2015 Comp Metabolic Prt811 K 5.0 mEq/L 10/29/2015 Comp Metabolic Cju078 CL 105 mEq/L 10/29/2015 Comp Metabolic Uhw382 CO2 23.0 mEq/L 10/29/2015 Comp Metabolic Kps672 ANION GAP 15 10/29/2015 Comp Metabolic Pui763 GLUCOSE 105 mg/dL 10/29/2015 Comp Metabolic Hhb464 Creat 1.0 mg/dL 10/29/2015 Comp Metabolic Rdf539 eGFR 55 ml/min/1.73m2 10/29/2015 Comp Metabolic Qha498 BUN 20 mg/dL 10/29/2015 Comp Metabolic Ukp630 B/C Ratio 19.4 Ratio 10/29/2015 Comp Metabolic Ugd406 CALCIUM 8.8 mg/dL 10/29/2015 Comp Metabolic Hwi905 ALK PHOS 56 U/L 10/29/2015 Comp Metabolic Icy458 AST(SGOT) 66 U/L 10/29/2015 Comp Metabolic Tjz222 ALT(SGPT) 78 U/L 10/29/2015 Comp Metabolic Mfh025 BILI T 0.7 mg/dL 10/29/2015 Comp Metabolic Pwg372 ALBUMIN 3.6 g/dL 10/29/2015 Comp Metabolic Blm361 TPRO 6.6 g/dL 10/29/2015 Comp Metabolic Dfl742 GLOB 3.0 g/dL 10/29/2015 Comp Metabolic Zol819 A/G Ratio 1.2 Ratio 10/29/2015 Comp Metabolic Yit841 Osmo 279 mOsmo 10/29/2015 Comp Metabolic Kmk457 NA 136 mEq/L 09/03/2015 Comp Metabolic Itt896 K 4.4 mEq/L 09/03/2015 Comp Metabolic Owu018 CL 103 mEq/L 09/03/2015 Comp Metabolic Yiq838 CO2 24.0 mEq/L 09/03/2015 Comp Metabolic Cwt251 ANION GAP 13 09/03/2015 Comp Metabolic Ktw325 GLUCOSE 87 mg/dL 09/03/2015 Comp Metabolic Ikr207 Creat 1.1 mg/dL 09/03/2015 Comp Metabolic Kdj000 eGFR 53 ml/min/1.73m2 09/03/2015 Comp Metabolic Qtb904 BUN 17 mg/dL 09/03/2015 Comp Metabolic Qnt940 B/C Ratio 16.2 Ratio 09/03/2015 Comp Metabolic Kpn163 CALCIUM 9.0 mg/dL 09/03/2015 Comp Metabolic Irj654 ALK PHOS 55 U/L 09/03/2015 Comp Metabolic Jir393 AST(SGOT) 83 U/L 09/03/2015 Comp Metabolic Bbl607 ALT(SGPT) 126 U/L 09/03/2015 Comp Metabolic Cxq076 BILI T 0.9 mg/dL 09/03/2015 Comp Metabolic Jhg229 ALBUMIN 3.9 g/dL 09/03/2015 Comp Metabolic Gib594 TPRO 6.8 g/dL 09/03/2015 Comp Metabolic Qyg215 GLOB 2.9 g/dL 09/03/2015 Comp Metabolic Yig709 A/G Ratio 1.4 Ratio 09/03/2015 Comp Metabolic Qbg050 Osmo 273 mOsmo 09/03/2015 Total T3 Ord42 TT3 0.6 ng/ml 07/09/2015 Tsh Ord6 hTSH II 1.62 uIU/mL 07/09/2015 Total T3 Ord42 TT3 0.5 ng/ml 04/02/2015 Free T4 Qqs565 FREE T4 1.23 ng/dL 04/02/2015 Tsh Ord6 hTSH II 5.95 uIU/mL 04/02/2015 Review of Systems System Result Effective Dates Constitutional No recent illness 10/29/2018 Constitutional No chills 10/29/2018 Constitutional No diaphoresis 10/29/2018 Constitutional No fever 10/29/2018 Ears/Nose/Throat/Neck nasal discharge 10/29/2018 Ears/Nose/Throat/Neck No oral lesion 10/29/2018 Cardiovascular No chest pain/pressure 10/29/2018 Cardiovascular No dyspnea 10/29/2018 Respiratory No dyspnea 10/29/2018 Gastrointestinal No hemorrhoids 10/29/2018 Gastrointestinal No abdominal pain 10/29/2018 Gastrointestinal No constipation 10/29/2018 Gastrointestinal No diarrhea 10/29/2018 Gastrointestinal gastroesophageal reflux 10/29/2018 Musculoskeletal stiffness 10/29/2018 Musculoskeletal No swelling 10/29/2018 Musculoskeletal No muscle weakness 10/29/2018 Musculoskeletal No myalgias 10/29/2018 Dermatologic pruritus 10/29/2018 Dermatologic No rash 10/29/2018 Dermatologic No sores 10/29/2018 Neurologic No alteration of consciousness 10/29/2018 Neurologic No mental status change 10/29/2018 Psychiatric anxiety 10/29/2018 Psychiatric depression 10/29/2018 Gastrointestinal dyspepsia 10/29/2018 Respiratory cough 10/29/2018 Musculoskeletal arthralgia(s) 10/29/2018 Constitutional No recent illness 09/05/2018 Constitutional No chills 09/05/2018 Constitutional No diaphoresis 09/05/2018 Constitutional No fever 09/05/2018 Ears/Nose/Throat/Neck No nasal discharge 09/05/2018 Ears/Nose/Throat/Neck oral lesion 09/05/2018 Cardiovascular No chest pain/pressure 09/05/2018 Cardiovascular No dyspnea 09/05/2018 Respiratory cough 09/05/2018 Respiratory No dyspnea 09/05/2018 Gastrointestinal No hemorrhoids 09/05/2018 Gastrointestinal No abdominal pain 09/05/2018 Gastrointestinal No constipation 09/05/2018 Gastrointestinal No diarrhea 09/05/2018 Gastrointestinal No gastroesophageal reflux 09/05/2018 Musculoskeletal No stiffness 09/05/2018 Musculoskeletal No swelling 09/05/2018 Musculoskeletal No muscle weakness 09/05/2018 Musculoskeletal No myalgias 09/05/2018 Dermatologic pruritus 09/05/2018 Dermatologic No rash 09/05/2018 Dermatologic No sores 09/05/2018 Neurologic No alteration of consciousness 09/05/2018 Neurologic No mental status change 09/05/2018 Psychiatric anxiety 09/05/2018 Psychiatric depression 09/05/2018 Constitutional recent illness 08/15/2018 Constitutional No chills 08/15/2018 Constitutional No fever 08/15/2018 Eyes No eye erythema 08/15/2018 Ears/Nose/Throat/Neck nasal allergies 08/15/2018 Ears/Nose/Throat/Neck nasal discharge 08/15/2018 Ears/Nose/Throat/Neck postnasal drip 08/15/2018 Ears/Nose/Throat/Neck sinus congestion 08/15/2018 Cardiovascular No chest pain/pressure 08/15/2018 Respiratory productive sputum 08/15/2018 Respiratory cough 08/15/2018 Respiratory wheezing 08/15/2018 Gastrointestinal No abdominal pain 08/15/2018 Musculoskeletal No joint complaint 08/15/2018 Dermatologic No rash 08/15/2018 Neurologic No alteration of consciousness 08/15/2018 Neurologic No mental status change 08/15/2018 Constitutional No recent illness 05/03/2018 Constitutional No chills 05/03/2018 Constitutional No diaphoresis 05/03/2018 Constitutional No fever 05/03/2018 Eyes No blindness 05/03/2018 Ears/Nose/Throat/Neck No nasal discharge 05/03/2018 Ears/Nose/Throat/Neck oral lesion 05/03/2018 Cardiovascular No chest pain/pressure 05/03/2018 Cardiovascular No dyspnea 05/03/2018 Respiratory cough 05/03/2018 Respiratory No dyspnea 05/03/2018 Gastrointestinal No hemorrhoids 05/03/2018 Gastrointestinal No abdominal pain 05/03/2018 Gastrointestinal No constipation 05/03/2018 Gastrointestinal No diarrhea 05/03/2018 Gastrointestinal No gastroesophageal reflux 05/03/2018 Genitourinary/Nephrology No urinary urgency 05/03/2018 Genitourinary/Nephrology No urinary frequency 05/03/2018 Musculoskeletal No stiffness 05/03/2018 Musculoskeletal No swelling 05/03/2018 Musculoskeletal No muscle weakness 05/03/2018 Musculoskeletal No myalgias 05/03/2018 Dermatologic No rash 05/03/2018 Dermatologic No sores 05/03/2018 Neurologic No alteration of consciousness 05/03/2018 Neurologic No mental status change 05/03/2018 Psychiatric anxiety 05/03/2018 Psychiatric depression 05/03/2018 Dermatologic pruritus 05/03/2018 Constitutional No recent illness 02/26/2018 Constitutional No chills 02/26/2018 Constitutional No diaphoresis 02/26/2018 Constitutional No fever 02/26/2018 Eyes No blindness 02/26/2018 Ears/Nose/Throat/Neck No nasal discharge 02/26/2018 Ears/Nose/Throat/Neck oral lesion 02/26/2018 Cardiovascular No chest pain/pressure 02/26/2018 Cardiovascular No dyspnea 02/26/2018 Respiratory cough 02/26/2018 Respiratory No dyspnea 02/26/2018 Gastrointestinal No hemorrhoids 02/26/2018 Gastrointestinal No abdominal pain 02/26/2018 Gastrointestinal No constipation 02/26/2018 Gastrointestinal No diarrhea 02/26/2018 Gastrointestinal No gastroesophageal reflux 02/26/2018 Gastrointestinal No melena 02/26/2018 Gastrointestinal No nausea 02/26/2018 Gastrointestinal No vomiting 02/26/2018 Genitourinary/Nephrology No urinary urgency 02/26/2018 Genitourinary/Nephrology No urinary frequency 02/26/2018 Musculoskeletal No stiffness 02/26/2018 Musculoskeletal No swelling 02/26/2018 Musculoskeletal muscle weakness 02/26/2018 Musculoskeletal No myalgias 02/26/2018 Dermatologic No rash 02/26/2018 Dermatologic No sores 02/26/2018 Neurologic No alteration of consciousness 02/26/2018 Neurologic No mental status change 02/26/2018 Psychiatric anxiety 02/26/2018 Psychiatric depression 02/26/2018 Musculoskeletal joint complaint 02/26/2018 Constitutional recent illness 12/12/2017 Constitutional No chills 12/12/2017 Constitutional No diaphoresis 12/12/2017 Constitutional No fever 12/12/2017 Eyes No blindness 12/12/2017 Ears/Nose/Throat/Neck No nasal discharge 12/12/2017 Cardiovascular No chest pain/pressure 12/12/2017 Cardiovascular No dyspnea 12/12/2017 Respiratory cough 12/12/2017 Respiratory No dyspnea 12/12/2017 Gastrointestinal No hemorrhoids 12/12/2017 Gastrointestinal No abdominal pain 12/12/2017 Gastrointestinal constipation 12/12/2017 Gastrointestinal diarrhea 12/12/2017 Gastrointestinal No gastroesophageal reflux 12/12/2017 Gastrointestinal No melena 12/12/2017 Gastrointestinal nausea 12/12/2017 Gastrointestinal vomiting 12/12/2017 Genitourinary/Nephrology No urinary urgency 12/12/2017 Genitourinary/Nephrology No urinary frequency 12/12/2017 Musculoskeletal No stiffness 12/12/2017 Musculoskeletal No swelling 12/12/2017 Musculoskeletal No muscle weakness 12/12/2017 Musculoskeletal No myalgias 12/12/2017 Dermatologic No rash 12/12/2017 Dermatologic No sores 12/12/2017 Neurologic No alteration of consciousness 12/12/2017 Neurologic No mental status change 12/12/2017 Psychiatric anxiety 12/12/2017 Psychiatric depression 12/12/2017 Constitutional anorexia 12/12/2017 Constitutional No night sweats 12/12/2017 Constitutional No fatigue 12/12/2017 Constitutional No insomnia 12/12/2017 Constitutional No malaise 12/12/2017 Constitutional weight loss 12/12/2017 Constitutional fatigue 12/04/2017 Constitutional recent illness 12/04/2017 Ears/Nose/Throat/Neck headache 12/04/2017 Ears/Nose/Throat/Neck nasal discharge 12/04/2017 Ears/Nose/Throat/Neck No sinusitis 12/04/2017 Ears/Nose/Throat/Neck No sore throat 12/04/2017 Cardiovascular No chest pain/pressure 12/04/2017 Cardiovascular No dyspnea 12/04/2017 Cardiovascular No edema 12/04/2017 Cardiovascular No fatigue 12/04/2017 Cardiovascular No syncope 12/04/2017 Respiratory No chest tightness 12/04/2017 Respiratory cough 12/04/2017 Respiratory No dyspnea 12/04/2017 Respiratory wheezing 12/04/2017 Gastrointestinal No constipation 12/04/2017 Gastrointestinal No diarrhea 12/04/2017 Gastrointestinal No dyspepsia 12/04/2017 Gastrointestinal No nausea 12/04/2017 Musculoskeletal No muscle weakness 12/04/2017 Musculoskeletal No myalgias 12/04/2017 Dermatologic No rash 12/04/2017 Neurologic No ataxia 12/04/2017 Neurologic No dizziness 12/04/2017 Neurologic No pain, facial 12/04/2017 Psychiatric No anxiety 12/04/2017 Psychiatric No depression 12/04/2017 Constitutional No recent illness 11/20/2017 Constitutional No chills 11/20/2017 Constitutional No diaphoresis 11/20/2017 Constitutional No fever 11/20/2017 Eyes No blindness 11/20/2017 Ears/Nose/Throat/Neck No nasal discharge 11/20/2017 Ears/Nose/Throat/Neck oral lesion 11/20/2017 Cardiovascular No chest pain/pressure 11/20/2017 Cardiovascular No dyspnea 11/20/2017 Respiratory cough 11/20/2017 Respiratory No dyspnea 11/20/2017 Gastrointestinal No hemorrhoids 11/20/2017 Gastrointestinal No abdominal pain 11/20/2017 Gastrointestinal No constipation 11/20/2017 Gastrointestinal No diarrhea 11/20/2017 Gastrointestinal No gastroesophageal reflux 11/20/2017 Gastrointestinal No melena 11/20/2017 Gastrointestinal No nausea 11/20/2017 Gastrointestinal No vomiting 11/20/2017 Musculoskeletal No stiffness 11/20/2017 Musculoskeletal No swelling 11/20/2017 Musculoskeletal No muscle weakness 11/20/2017 Musculoskeletal No myalgias 11/20/2017 Dermatologic No rash 11/20/2017 Dermatologic No sores 11/20/2017 Neurologic No alteration of consciousness 11/20/2017 Neurologic No mental status change 11/20/2017 Psychiatric anxiety 11/20/2017 Psychiatric depression 11/20/2017 Genitourinary/Nephrology [...] No eye erythema 09/15/2017 Ears/Nose/Throat/Neck No dizziness 09/15/2017 Ears/Nose/Throat/Neck headache 09/15/2017 Ears/Nose/Throat/Neck nasal allergies 09/15/2017 Ears/Nose/Throat/Neck nasal discharge 09/15/2017 Ears/Nose/Throat/Neck sinus congestion 09/15/2017 Ears/Nose/Throat/Neck No sore throat 09/15/2017 Cardiovascular No chest pain/pressure 09/15/2017 Cardiovascular No dyspnea 09/15/2017 Respiratory productive sputum 09/15/2017 Respiratory No chest congestion 09/15/2017 Respiratory cough 09/15/2017 Gastrointestinal No abdominal pain 09/15/2017 Gastrointestinal No constipation 09/15/2017 Gastrointestinal No diarrhea 09/15/2017 Genitourinary/Nephrology No dysuria 09/15/2017 Musculoskeletal No joint complaint 09/15/2017 Dermatologic No rash 09/15/2017 Neurologic No alteration of consciousness 09/15/2017 Constitutional No recent illness 09/07/2017 Constitutional No chills 09/07/2017 Constitutional No diaphoresis 09/07/2017 Constitutional No fever 09/07/2017 Eyes No eye erythema 09/07/2017 Ears/Nose/Throat/Neck No nasal discharge 09/07/2017 Cardiovascular No chest pain/pressure 09/07/2017 Respiratory No cough 09/07/2017 Respiratory No chest congestion 09/07/2017 Gastrointestinal No abdominal pain 09/07/2017 Dermatologic sores 09/07/2017 Neurologic No alteration of consciousness 09/07/2017 Neurologic No mental status change 09/07/2017 Constitutional No recent illness 08/30/2017 Constitutional No chills 08/30/2017 Constitutional No diaphoresis 08/30/2017 Constitutional No fever 08/30/2017 Eyes No blindness 08/30/2017 Ears/Nose/Throat/Neck No nasal discharge 08/30/2017 Ears/Nose/Throat/Neck oral lesion 08/30/2017 Cardiovascular No chest pain/pressure 08/30/2017 Cardiovascular No dyspnea 08/30/2017 Respiratory cough 08/30/2017 Respiratory No dyspnea 08/30/2017 Gastrointestinal No hemorrhoids 08/30/2017 Gastrointestinal No abdominal pain 08/30/2017 Gastrointestinal No constipation 08/30/2017 Gastrointestinal No diarrhea 08/30/2017 Gastrointestinal No gastroesophageal reflux 08/30/2017 Gastrointestinal No melena 08/30/2017 Gastrointestinal No nausea 08/30/2017 Gastrointestinal No vomiting 08/30/2017 Musculoskeletal No stiffness 08/30/2017 Musculoskeletal No swelling 08/30/2017 Musculoskeletal No muscle weakness 08/30/2017 Musculoskeletal No myalgias 08/30/2017 Neurologic No alteration of consciousness 08/30/2017 Neurologic No mental status change 08/30/2017 Psychiatric anxiety 08/30/2017 Psychiatric depression 08/30/2017 Dermatologic No sores 08/30/2017 Dermatologic No rash 08/30/2017 Constitutional No recent illness 07/06/2017 Constitutional No chills 07/06/2017 Constitutional No diaphoresis 07/06/2017 Constitutional No fever 07/06/2017 Eyes No blindness 07/06/2017 Ears/Nose/Throat/Neck No nasal discharge 07/06/2017 Cardiovascular No chest pain/pressure 07/06/2017 Cardiovascular No dyspnea 07/06/2017 Respiratory cough 07/06/2017 Respiratory No dyspnea 07/06/2017 Neurologic No alteration of consciousness 07/06/2017 Neurologic No mental status change 07/06/2017 Ears/Nose/Throat/Neck oral lesion 07/06/2017 Dermatologic sores 07/06/2017 Psychiatric anxiety 07/06/2017 Psychiatric depression 07/06/2017 Gastrointestinal No hemorrhoids 07/06/2017 Gastrointestinal No abdominal pain 07/06/2017 Gastrointestinal No constipation 07/06/2017 Gastrointestinal No diarrhea 07/06/2017 Gastrointestinal No gastroesophageal reflux 07/06/2017 Gastrointestinal No melena 07/06/2017 Gastrointestinal No nausea 07/06/2017 Gastrointestinal No vomiting 07/06/2017 Musculoskeletal No stiffness 07/06/2017 Musculoskeletal No swelling 07/06/2017 Musculoskeletal No muscle weakness 07/06/2017 Musculoskeletal No myalgias 07/06/2017 Constitutional recent illness 06/20/2017 Constitutional No chills 06/20/2017 Constitutional No diaphoresis 06/20/2017 Constitutional No fever 06/20/2017 Eyes No eye erythema 06/20/2017 Ears/Nose/Throat/Neck nasal allergies 06/20/2017 Ears/Nose/Throat/Neck nasal discharge 06/20/2017 Ears/Nose/Throat/Neck postnasal drip 06/20/2017 Ears/Nose/Throat/Neck sinus congestion 06/20/2017 Ears/Nose/Throat/Neck sore throat 06/20/2017 Cardiovascular No chest pain/pressure 06/20/2017 Cardiovascular No dyspnea 06/20/2017 Respiratory chest congestion 06/20/2017 Respiratory cough 06/20/2017 Respiratory No dyspnea 06/20/2017 Gastrointestinal No constipation 06/20/2017 Gastrointestinal No diarrhea 06/20/2017 Gastrointestinal No nausea 06/20/2017 Gastrointestinal No vomiting 06/20/2017 Dermatologic No rash 06/20/2017 Neurologic No alteration of consciousness 06/20/2017 Neurologic No mental status change 06/20/2017 Constitutional malaise 06/20/2017 Constitutional No recent illness 06/05/2017 Constitutional No chills 06/05/2017 Constitutional No diaphoresis 06/05/2017 Constitutional No fever 06/05/2017 Eyes No eye erythema 06/05/2017 Ears/Nose/Throat/Neck No nasal discharge 06/05/2017 Cardiovascular No chest pain/pressure 06/05/2017 Cardiovascular No dyspnea 06/05/2017 Respiratory No cough 06/05/2017 Respiratory No dyspnea 06/05/2017 Neurologic No alteration of consciousness 06/05/2017 Neurologic No mental status change 06/05/2017 Constitutional No recent illness 05/25/2017 Constitutional No chills 05/25/2017 Constitutional fatigue 05/25/2017 Constitutional No fever 05/25/2017 Constitutional insomnia 05/25/2017 Constitutional malaise 05/25/2017 Ears/Nose/Throat/Neck No dental pain 05/25/2017 Ears/Nose/Throat/Neck No dizziness 05/25/2017 Ears/Nose/Throat/Neck No dysphagia 05/25/2017 Ears/Nose/Throat/Neck No headache 05/25/2017 Ears/Nose/Throat/Neck No hearing loss 05/25/2017 Ears/Nose/Throat/Neck No nasal allergies 05/25/2017 Ears/Nose/Throat/Neck No sore throat 05/25/2017 Ears/Nose/Throat/Neck No postnasal drip 05/25/2017 Ears/Nose/Throat/Neck No sinus congestion 05/25/2017 Cardiovascular No dyspnea 05/25/2017 Cardiovascular No edema 05/25/2017 Cardiovascular No exercise intolerance 05/25/2017 Cardiovascular No fatigue 05/25/2017 Cardiovascular No near-syncope/dizziness 05/25/2017 Respiratory No chest tightness 05/25/2017 Respiratory No cough 05/25/2017 Respiratory daytime hypersomnolence 05/25/2017 Respiratory No dyspnea 05/25/2017 Respiratory No pedal edema 05/25/2017 Gastrointestinal No constipation 05/25/2017 Gastrointestinal No diarrhea 05/25/2017 Gastrointestinal No gastroesophageal reflux 05/25/2017 Gastrointestinal No vomiting 05/25/2017 Genitourinary/Nephrology No dysuria 05/25/2017 Genitourinary/Nephrology No nocturia 05/25/2017 Genitourinary/Nephrology No urinary incontinence 05/25/2017 Musculoskeletal stiffness 05/25/2017 Musculoskeletal No swelling 05/25/2017 Musculoskeletal muscle weakness 05/25/2017 Musculoskeletal myalgias 05/25/2017 Dermatologic mole change 05/25/2017 Dermatologic sores 05/25/2017 Neurologic No dizziness 05/25/2017 Neurologic No headache 05/25/2017 Neurologic No neck pain 05/25/2017 Neurologic No syncope 05/25/2017 Psychiatric No anxiety 05/25/2017 Psychiatric No depression 05/25/2017 Eyes No blindness 05/25/2017 Eyes No vision change 05/25/2017 Musculoskeletal arthralgia(s) 05/25/2017 Musculoskeletal shoulder pain 05/25/2017 Constitutional No recent illness 03/23/2017 Constitutional No chills 03/23/2017 Constitutional fatigue 03/23/2017 Constitutional No fever 03/23/2017 Constitutional insomnia 03/23/2017 Constitutional malaise 03/23/2017 Ears/Nose/Throat/Neck No dental pain 03/23/2017 Ears/Nose/Throat/Neck No dizziness 03/23/2017 Ears/Nose/Throat/Neck No dysphagia 03/23/2017 Ears/Nose/Throat/Neck No headache 03/23/2017 Ears/Nose/Throat/Neck No hearing loss 03/23/2017 Ears/Nose/Throat/Neck No nasal allergies 03/23/2017 Ears/Nose/Throat/Neck No sore throat 03/23/2017 Ears/Nose/Throat/Neck No postnasal drip 03/23/2017 Ears/Nose/Throat/Neck No sinus congestion 03/23/2017 Cardiovascular chest pain/pressure 03/23/2017 Cardiovascular No dyspnea 03/23/2017 Cardiovascular No edema 03/23/2017 Cardiovascular No exercise intolerance 03/23/2017 Cardiovascular No fatigue 03/23/2017 Cardiovascular No near-syncope/dizziness 03/23/2017 Respiratory No chest tightness 03/23/2017 Respiratory No cough 03/23/2017 Respiratory daytime hypersomnolence 03/23/2017 Respiratory No dyspnea 03/23/2017 Respiratory No pedal edema 03/23/2017 Gastrointestinal abdominal pain 03/23/2017 Gastrointestinal No constipation 03/23/2017 Gastrointestinal No diarrhea 03/23/2017 Gastrointestinal No gastroesophageal reflux 03/23/2017 Gastrointestinal nausea 03/23/2017 Gastrointestinal No vomiting 03/23/2017 Genitourinary/Nephrology No dysuria 03/23/2017 Genitourinary/Nephrology No nocturia 03/23/2017 Genitourinary/Nephrology No urinary incontinence 03/23/2017 Musculoskeletal stiffness 03/23/2017 Musculoskeletal No swelling 03/23/2017 Musculoskeletal muscle weakness 03/23/2017 Musculoskeletal myalgias 03/23/2017 Dermatologic mole change 03/23/2017 Dermatologic sores 03/23/2017 Neurologic No dizziness 03/23/2017 Neurologic No headache 03/23/2017 Neurologic No neck pain 03/23/2017 Neurologic No syncope 03/23/2017 Psychiatric No anxiety 03/23/2017 Psychiatric No depression 03/23/2017 Constitutional No recent illness 01/23/2017 Constitutional No chills 01/23/2017 Constitutional fatigue 01/23/2017 Constitutional No fever 01/23/2017 Constitutional insomnia 01/23/2017 Constitutional No malaise 01/23/2017 Eyes No blindness 01/23/2017 Eyes No vision change 01/23/2017 Ears/Nose/Throat/Neck No dental pain 01/23/2017 Ears/Nose/Throat/Neck No dizziness 01/23/2017 Ears/Nose/Throat/Neck No dysphagia 01/23/2017 Ears/Nose/Throat/Neck No headache 01/23/2017 Ears/Nose/Throat/Neck No hearing loss 01/23/2017 Ears/Nose/Throat/Neck No nasal allergies 01/23/2017 Ears/Nose/Throat/Neck No sore throat 01/23/2017 Ears/Nose/Throat/Neck No postnasal drip 01/23/2017 Ears/Nose/Throat/Neck No sinus congestion 01/23/2017 Cardiovascular No chest pain/pressure 01/23/2017 Cardiovascular No dyspnea 01/23/2017 Cardiovascular No edema 01/23/2017 Cardiovascular No exercise intolerance 01/23/2017 Cardiovascular No fatigue 01/23/2017 Cardiovascular No near-syncope/dizziness 01/23/2017 Respiratory No chest tightness 01/23/2017 Respiratory No cough 01/23/2017 Respiratory daytime hypersomnolence 01/23/2017 Respiratory No dyspnea 01/23/2017 Respiratory No pedal edema 01/23/2017 Gastrointestinal abdominal pain 01/23/2017 Gastrointestinal No constipation 01/23/2017 Gastrointestinal No diarrhea 01/23/2017 Gastrointestinal No gastroesophageal reflux 01/23/2017 Gastrointestinal nausea 01/23/2017 Gastrointestinal No vomiting 01/23/2017 Genitourinary/Nephrology No dysuria 01/23/2017 Genitourinary/Nephrology No nocturia 01/23/2017 Genitourinary/Nephrology No urinary incontinence 01/23/2017 Musculoskeletal stiffness 01/23/2017 Musculoskeletal No swelling 01/23/2017 Musculoskeletal No muscle weakness 01/23/2017 Musculoskeletal No myalgias 01/23/2017 Dermatologic mole change 01/23/2017 Dermatologic sores 01/23/2017 Neurologic No dizziness 01/23/2017 Neurologic No headache 01/23/2017 Neurologic No neck pain 01/23/2017 Neurologic No syncope 01/23/2017 Psychiatric No anxiety 01/23/2017 Psychiatric No depression 01/23/2017 Constitutional No recent illness 11/02/2016 Constitutional No chills 11/02/2016 Constitutional No fever 11/02/2016 Eyes No eye erythema 11/02/2016 Ears/Nose/Throat/Neck No nasal discharge 11/02/2016 Cardiovascular No chest pain/pressure 11/02/2016 Cardiovascular No dyspnea 11/02/2016 Respiratory No cough 11/02/2016 Respiratory No dyspnea 11/02/2016 Musculoskeletal joint complaint 11/02/2016 Neurologic No alteration of consciousness 11/02/2016 Neurologic No mental status change 11/02/2016 Musculoskeletal back pain 11/02/2016 Musculoskeletal arthralgia(s) 11/02/2016 Musculoskeletal stiffness 11/02/2016 Musculoskeletal muscle weakness 11/02/2016 Constitutional No recent illness 09/29/2016 Constitutional No chills 09/29/2016 Constitutional fatigue 09/29/2016 Constitutional No fever 09/29/2016 Constitutional insomnia 09/29/2016 Constitutional No malaise 09/29/2016 Eyes No blindness 09/29/2016 Eyes No vision change 09/29/2016 Ears/Nose/Throat/Neck No dental pain 09/29/2016 Ears/Nose/Throat/Neck No dizziness 09/29/2016 Ears/Nose/Throat/Neck No dysphagia 09/29/2016 Ears/Nose/Throat/Neck No headache 09/29/2016 Ears/Nose/Throat/Neck No hearing loss 09/29/2016 Ears/Nose/Throat/Neck No nasal allergies 09/29/2016 Ears/Nose/Throat/Neck No sore throat 09/29/2016 Ears/Nose/Throat/Neck No postnasal drip 09/29/2016 Ears/Nose/Throat/Neck No sinus congestion 09/29/2016 Cardiovascular No chest pain/pressure 09/29/2016 Cardiovascular No dyspnea 09/29/2016 Cardiovascular No edema 09/29/2016 Cardiovascular No exercise intolerance 09/29/2016 Cardiovascular No fatigue 09/29/2016 Cardiovascular No near-syncope/dizziness 09/29/2016 Respiratory No chest tightness 09/29/2016 Respiratory No cough 09/29/2016 Respiratory daytime hypersomnolence 09/29/2016 Respiratory No dyspnea 09/29/2016 Respiratory No pedal edema 09/29/2016 Gastrointestinal abdominal pain 09/29/2016 Gastrointestinal No constipation 09/29/2016 Gastrointestinal No diarrhea 09/29/2016 Gastrointestinal No gastroesophageal reflux 09/29/2016 Gastrointestinal nausea 09/29/2016 Gastrointestinal No vomiting 09/29/2016 Genitourinary/Nephrology No dysuria 09/29/2016 Genitourinary/Nephrology No nocturia 09/29/2016 Genitourinary/Nephrology No urinary incontinence 09/29/2016 Musculoskeletal stiffness 09/29/2016 Musculoskeletal No swelling 09/29/2016 Musculoskeletal No muscle weakness 09/29/2016 Musculoskeletal No myalgias 09/29/2016 Dermatologic mole change 09/29/2016 Dermatologic sores 09/29/2016 Neurologic No dizziness 09/29/2016 Neurologic No headache 09/29/2016 Neurologic No neck pain 09/29/2016 Neurologic No syncope 09/29/2016 Psychiatric No anxiety 09/29/2016 Psychiatric No depression 09/29/2016 Constitutional No recent illness 07/26/2016 Constitutional No chills 07/26/2016 Constitutional No fever 07/26/2016 Eyes No blindness 07/26/2016 Eyes No vision change 07/26/2016 Ears/Nose/Throat/Neck No nasal allergies 07/26/2016 Ears/Nose/Throat/Neck No nasal discharge 07/26/2016 Ears/Nose/Throat/Neck No postnasal drip 07/26/2016 Ears/Nose/Throat/Neck No sinus congestion 07/26/2016 Ears/Nose/Throat/Neck No sore throat 07/26/2016 Cardiovascular No chest pain/pressure 07/26/2016 Cardiovascular No dyspnea 07/26/2016 Respiratory No chest congestion 07/26/2016 Respiratory No cough 07/26/2016 Respiratory No dyspnea 07/26/2016 Gastrointestinal No abdominal pain 07/26/2016 Gastrointestinal No constipation 07/26/2016 Gastrointestinal No diarrhea 07/26/2016 Gastrointestinal No nausea 07/26/2016 Gastrointestinal No vomiting 07/26/2016 Musculoskeletal No joint complaint 07/26/2016 Dermatologic No rash 07/26/2016 Neurologic No alteration of consciousness 07/26/2016 Neurologic No mental status change 07/26/2016 Cardiovascular hypertension 07/26/2016 Constitutional No recent illness 05/30/2016 Constitutional No chills 05/30/2016 Constitutional No fever 05/30/2016 Eyes No eye erythema 05/30/2016 Eyes No vision change 05/30/2016 Ears/Nose/Throat/Neck No nasal allergies 05/30/2016 Ears/Nose/Throat/Neck No sore throat 05/30/2016 Ears/Nose/Throat/Neck No postnasal drip 05/30/2016 Ears/Nose/Throat/Neck No sinus congestion 05/30/2016 Cardiovascular No chest pain/pressure 05/30/2016 Cardiovascular No dyspnea 05/30/2016 Respiratory No cough 05/30/2016 Respiratory No dyspnea 05/30/2016 Gastrointestinal No constipation 05/30/2016 Gastrointestinal No diarrhea 05/30/2016 Gastrointestinal No vomiting 05/30/2016 Ears/Nose/Throat/Neck No nasal discharge 05/30/2016 Respiratory No chest congestion 05/30/2016 Gastrointestinal No abdominal pain 05/30/2016 Gastrointestinal No nausea 05/30/2016 Musculoskeletal No joint complaint 05/30/2016 Dermatologic No rash 05/30/2016 Neurologic No alteration of consciousness 05/30/2016 Neurologic No mental status change 05/30/2016 Constitutional No recent illness 05/25/2016 Constitutional No chills 05/25/2016 Constitutional No fever 05/25/2016 Eyes No blindness 05/25/2016 Eyes No vision change 05/25/2016 Ears/Nose/Throat/Neck No nasal allergies 05/25/2016 Ears/Nose/Throat/Neck No nasal discharge 05/25/2016 Ears/Nose/Throat/Neck No postnasal drip 05/25/2016 Ears/Nose/Throat/Neck No sinus congestion 05/25/2016 Ears/Nose/Throat/Neck No sore throat 05/25/2016 Cardiovascular No chest pain/pressure 05/25/2016 Cardiovascular No dyspnea 05/25/2016 Respiratory No chest congestion 05/25/2016 Respiratory No cough 05/25/2016 Respiratory No dyspnea 05/25/2016 Gastrointestinal No abdominal pain 05/25/2016 Gastrointestinal No constipation 05/25/2016 Gastrointestinal No diarrhea 05/25/2016 Gastrointestinal No nausea 05/25/2016 Gastrointestinal No vomiting 05/25/2016 Musculoskeletal No joint complaint 05/25/2016 Dermatologic No rash 05/25/2016 Neurologic No alteration of consciousness 05/25/2016 Neurologic No mental status change 05/25/2016 Constitutional recent illness 02/25/2016 Constitutional No fever 02/25/2016 Eyes No eye erythema 02/25/2016 Eyes No vision change 02/25/2016 Ears/Nose/Throat/Neck No nasal allergies 02/25/2016 Cardiovascular chest pain/pressure 02/25/2016 Respiratory No cough 02/25/2016 Respiratory No dyspnea 02/25/2016 Gastrointestinal No constipation 02/25/2016 Gastrointestinal No diarrhea 02/25/2016 Gastrointestinal nausea 02/25/2016 Gastrointestinal No vomiting 02/25/2016 Respiratory No chest congestion 02/25/2016 Musculoskeletal No joint complaint 02/25/2016 Dermatologic No rash 02/25/2016 Neurologic No alteration of consciousness 02/25/2016 Neurologic No mental status change 02/25/2016 Constitutional No recent illness 01/25/2016 Constitutional No chills 01/25/2016 Constitutional fatigue 01/25/2016 Constitutional No fever 01/25/2016 Constitutional insomnia 01/25/2016 Constitutional No malaise 01/25/2016 Eyes No blindness 01/25/2016 Eyes No vision change 01/25/2016 Ears/Nose/Throat/Neck No dental pain 01/25/2016 Ears/Nose/Throat/Neck No dizziness 01/25/2016 Ears/Nose/Throat/Neck No dysphagia 01/25/2016 Ears/Nose/Throat/Neck No headache 01/25/2016 Ears/Nose/Throat/Neck No hearing loss 01/25/2016 Ears/Nose/Throat/Neck No nasal allergies 01/25/2016 Ears/Nose/Throat/Neck No sore throat 01/25/2016 Ears/Nose/Throat/Neck No postnasal drip 01/25/2016 Ears/Nose/Throat/Neck No sinus congestion 01/25/2016 Cardiovascular No chest pain/pressure 01/25/2016 Cardiovascular No dyspnea 01/25/2016 Cardiovascular No edema 01/25/2016 Cardiovascular No exercise intolerance 01/25/2016 Cardiovascular No fatigue 01/25/2016 Cardiovascular No near-syncope/dizziness 01/25/2016 Respiratory No chest tightness 01/25/2016 Respiratory No cough 01/25/2016 Respiratory daytime hypersomnolence 01/25/2016 Respiratory No dyspnea 01/25/2016 Respiratory No pedal edema 01/25/2016 Gastrointestinal abdominal pain 01/25/2016 Gastrointestinal No constipation 01/25/2016 Gastrointestinal No diarrhea 01/25/2016 Gastrointestinal No gastroesophageal reflux 01/25/2016 Gastrointestinal nausea 01/25/2016 Gastrointestinal No vomiting 01/25/2016 Genitourinary/Nephrology No dysuria 01/25/2016 Genitourinary/Nephrology No nocturia 01/25/2016 Genitourinary/Nephrology No urinary incontinence 01/25/2016 Musculoskeletal stiffness 01/25/2016 Musculoskeletal No swelling 01/25/2016 Musculoskeletal No muscle weakness 01/25/2016 Musculoskeletal No myalgias 01/25/2016 Dermatologic mole change 01/25/2016 Dermatologic sores 01/25/2016 Neurologic No dizziness 01/25/2016 Neurologic No headache 01/25/2016 Neurologic No neck pain 01/25/2016 Neurologic No syncope 01/25/2016 Psychiatric No anxiety 01/25/2016 Psychiatric No depression 01/25/2016 Constitutional chills 11/11/2015 Constitutional fatigue 11/11/2015 Constitutional No fever 11/11/2015 Constitutional No malaise 11/11/2015 Eyes No eye erythema 11/11/2015 Eyes No vision change 11/11/2015 Ears/Nose/Throat/Neck postnasal drip 11/11/2015 Ears/Nose/Throat/Neck sinus congestion 11/11/2015 Cardiovascular No chest pain/pressure 11/11/2015 Cardiovascular No dyspnea 11/11/2015 Respiratory cough 11/11/2015 Psychiatric No anxiety 11/11/2015 Psychiatric No depression 11/11/2015 Constitutional recent illness 11/11/2015 Ears/Nose/Throat/Neck nasal allergies 11/11/2015 Ears/Nose/Throat/Neck nasal discharge 11/11/2015 Ears/Nose/Throat/Neck otalgia 11/11/2015 Respiratory chest congestion 11/11/2015 Respiratory productive sputum 11/11/2015 Respiratory No dyspnea 11/11/2015 Musculoskeletal No joint complaint 11/11/2015 Dermatologic No rash 11/11/2015 Neurologic No alteration of consciousness 11/11/2015 Neurologic No mental status change 11/11/2015 Constitutional No recent illness 10/12/2015 Constitutional No chills 10/12/2015 Constitutional fatigue 10/12/2015 Constitutional No fever 10/12/2015 Constitutional insomnia 10/12/2015 Constitutional No malaise 10/12/2015 Eyes No blindness 10/12/2015 Eyes No vision change 10/12/2015 Ears/Nose/Throat/Neck No dental pain 10/12/2015 Ears/Nose/Throat/Neck No dizziness 10/12/2015 Ears/Nose/Throat/Neck No dysphagia 10/12/2015 Ears/Nose/Throat/Neck No headache 10/12/2015 Ears/Nose/Throat/Neck No hearing loss 10/12/2015 Ears/Nose/Throat/Neck No nasal allergies 10/12/2015 Ears/Nose/Throat/Neck No sore throat 10/12/2015 Ears/Nose/Throat/Neck No postnasal drip 10/12/2015 Ears/Nose/Throat/Neck No sinus congestion 10/12/2015 Cardiovascular No chest pain/pressure 10/12/2015 Cardiovascular No dyspnea 10/12/2015 Cardiovascular No edema 10/12/2015 Cardiovascular No exercise intolerance 10/12/2015 Cardiovascular No fatigue 10/12/2015 Cardiovascular No near-syncope/dizziness 10/12/2015 Respiratory No chest tightness 10/12/2015 Respiratory No cough 10/12/2015 Respiratory No dyspnea 10/12/2015 Respiratory No pedal edema 10/12/2015 Gastrointestinal abdominal pain 10/12/2015 Gastrointestinal No constipation 10/12/2015 Gastrointestinal No diarrhea 10/12/2015 Gastrointestinal No gastroesophageal reflux 10/12/2015 Gastrointestinal nausea 10/12/2015 Gastrointestinal No vomiting 10/12/2015 Genitourinary/Nephrology No dysuria 10/12/2015 Genitourinary/Nephrology No nocturia 10/12/2015 Genitourinary/Nephrology No urinary incontinence 10/12/2015 Musculoskeletal stiffness 10/12/2015 Musculoskeletal No swelling 10/12/2015 Musculoskeletal No muscle weakness 10/12/2015 Musculoskeletal No myalgias 10/12/2015 Dermatologic mole change 10/12/2015 Dermatologic sores 10/12/2015 Neurologic No dizziness 10/12/2015 Neurologic No headache 10/12/2015 Neurologic No neck pain 10/12/2015 Neurologic No syncope 10/12/2015 Psychiatric No anxiety 10/12/2015 Psychiatric No depression 10/12/2015 Respiratory daytime hypersomnolence 10/12/2015 Constitutional No recent illness 09/03/2015 Constitutional No chills 09/03/2015 Constitutional No fatigue 09/03/2015 Constitutional No fever 09/03/2015 Constitutional No insomnia 09/03/2015 Constitutional No malaise 09/03/2015 Eyes No blindness 09/03/2015 Eyes No vision change 09/03/2015 Ears/Nose/Throat/Neck No dental pain 09/03/2015 Ears/Nose/Throat/Neck No dizziness 09/03/2015 Ears/Nose/Throat/Neck No dysphagia 09/03/2015 Ears/Nose/Throat/Neck No headache 09/03/2015 Ears/Nose/Throat/Neck No hearing loss 09/03/2015 Ears/Nose/Throat/Neck No nasal allergies 09/03/2015 Ears/Nose/Throat/Neck No sore throat 09/03/2015 Ears/Nose/Throat/Neck No postnasal drip 09/03/2015 Ears/Nose/Throat/Neck No sinus congestion 09/03/2015 Cardiovascular No chest pain/pressure 09/03/2015 Cardiovascular No dyspnea 09/03/2015 Cardiovascular No edema 09/03/2015 Cardiovascular No exercise intolerance 09/03/2015 Cardiovascular No fatigue 09/03/2015 Cardiovascular No near-syncope/dizziness 09/03/2015 Respiratory No chest tightness 09/03/2015 Respiratory No cough 09/03/2015 Respiratory No dyspnea 09/03/2015 Respiratory No pedal edema 09/03/2015 Gastrointestinal abdominal pain 09/03/2015 Gastrointestinal No constipation 09/03/2015 Gastrointestinal No diarrhea 09/03/2015 Gastrointestinal No gastroesophageal reflux 09/03/2015 Gastrointestinal nausea 09/03/2015 Gastrointestinal No vomiting 09/03/2015 Genitourinary/Nephrology No dysuria 09/03/2015 Genitourinary/Nephrology No nocturia 09/03/2015 Genitourinary/Nephrology No urinary incontinence 09/03/2015 Musculoskeletal stiffness 09/03/2015 Musculoskeletal No swelling 09/03/2015 Musculoskeletal No muscle weakness 09/03/2015 Musculoskeletal No myalgias 09/03/2015 Dermatologic mole change 09/03/2015 Dermatologic sores 09/03/2015 Neurologic No dizziness 09/03/2015 Neurologic No headache 09/03/2015 Neurologic No neck pain 09/03/2015 Neurologic No syncope 09/03/2015 Psychiatric No anxiety 09/03/2015 Psychiatric No depression 09/03/2015 Constitutional No recent illness 05/19/2015 Constitutional No chills 05/19/2015 Constitutional No fatigue 05/19/2015 Constitutional No fever 05/19/2015 Constitutional No insomnia 05/19/2015 Constitutional No malaise 05/19/2015 Eyes No blindness 05/19/2015 Eyes No vision change 05/19/2015 Ears/Nose/Throat/Neck No dental pain 05/19/2015 Ears/Nose/Throat/Neck No dizziness 05/19/2015 Ears/Nose/Throat/Neck No dysphagia 05/19/2015 Ears/Nose/Throat/Neck No headache 05/19/2015 Ears/Nose/Throat/Neck No hearing loss 05/19/2015 Ears/Nose/Throat/Neck No nasal allergies 05/19/2015 Ears/Nose/Throat/Neck No sore throat 05/19/2015 Ears/Nose/Throat/Neck No postnasal drip 05/19/2015 Ears/Nose/Throat/Neck No sinus congestion 05/19/2015 Cardiovascular No chest pain/pressure 05/19/2015 Cardiovascular No dyspnea 05/19/2015 Cardiovascular No edema 05/19/2015 Cardiovascular No exercise intolerance 05/19/2015 Cardiovascular No fatigue 05/19/2015 Cardiovascular No near-syncope/dizziness 05/19/2015 Respiratory No chest tightness 05/19/2015 Respiratory No cough 05/19/2015 Respiratory No dyspnea 05/19/2015 Respiratory No pedal edema 05/19/2015 Gastrointestinal abdominal pain 05/19/2015 Gastrointestinal No constipation 05/19/2015 Gastrointestinal No diarrhea 05/19/2015 Gastrointestinal No gastroesophageal reflux 05/19/2015 Gastrointestinal nausea 05/19/2015 Gastrointestinal No vomiting 05/19/2015 Genitourinary/Nephrology No dysuria 05/19/2015 Genitourinary/Nephrology No nocturia 05/19/2015 Genitourinary/Nephrology No urinary incontinence 05/19/2015 Musculoskeletal stiffness 05/19/2015 Musculoskeletal No swelling 05/19/2015 Musculoskeletal No muscle weakness 05/19/2015 Musculoskeletal No myalgias 05/19/2015 Dermatologic sores 05/19/2015 Neurologic No dizziness 05/19/2015 Neurologic No headache 05/19/2015 Neurologic No neck pain 05/19/2015 Neurologic No syncope 05/19/2015 Psychiatric No anxiety 05/19/2015 Psychiatric No depression 05/19/2015 Dermatologic mole change 05/19/2015 Constitutional No recent illness 05/12/2015 Constitutional No chills 05/12/2015 Constitutional No fatigue 05/12/2015 Constitutional No fever 05/12/2015 Constitutional No insomnia 05/12/2015 Constitutional No malaise 05/12/2015 Eyes No blindness 05/12/2015 Eyes No vision change 05/12/2015 Ears/Nose/Throat/Neck No dental pain 05/12/2015 Ears/Nose/Throat/Neck No dizziness 05/12/2015 Ears/Nose/Throat/Neck No dysphagia 05/12/2015 Ears/Nose/Throat/Neck No headache 05/12/2015 Ears/Nose/Throat/Neck No hearing loss 05/12/2015 Ears/Nose/Throat/Neck No nasal allergies 05/12/2015 Ears/Nose/Throat/Neck No sore throat 05/12/2015 Ears/Nose/Throat/Neck No postnasal drip 05/12/2015 Ears/Nose/Throat/Neck No sinus congestion 05/12/2015 Cardiovascular No chest pain/pressure 05/12/2015 Cardiovascular No dyspnea 05/12/2015 Cardiovascular No edema 05/12/2015 Cardiovascular No exercise intolerance 05/12/2015 Cardiovascular No fatigue 05/12/2015 Cardiovascular No near-syncope/dizziness 05/12/2015 Respiratory No chest tightness 05/12/2015 Respiratory No cough 05/12/2015 Respiratory No dyspnea 05/12/2015 Respiratory No pedal edema 05/12/2015 Gastrointestinal abdominal pain 05/12/2015 Gastrointestinal No constipation 05/12/2015 Gastrointestinal No diarrhea 05/12/2015 Gastrointestinal No gastroesophageal reflux 05/12/2015 Gastrointestinal nausea 05/12/2015 Gastrointestinal No vomiting 05/12/2015 Genitourinary/Nephrology No dysuria 05/12/2015 Genitourinary/Nephrology No nocturia 05/12/2015 Genitourinary/Nephrology No urinary incontinence 05/12/2015 Musculoskeletal stiffness 05/12/2015 Musculoskeletal No swelling 05/12/2015 Musculoskeletal No muscle weakness 05/12/2015 Musculoskeletal No myalgias 05/12/2015 Dermatologic mole change 05/12/2015 Dermatologic sores 05/12/2015 Neurologic No dizziness 05/12/2015 Neurologic No headache 05/12/2015 Neurologic No neck pain 05/12/2015 Neurologic No syncope 05/12/2015 Psychiatric No anxiety 05/12/2015 Psychiatric No depression 05/12/2015 Constitutional No recent illness 01/13/2015 Constitutional No anorexia 01/13/2015 Constitutional No night sweats 01/13/2015 Constitutional No chills 01/13/2015 Constitutional No diaphoresis 01/13/2015 Constitutional fatigue 01/13/2015 Constitutional No fever 01/13/2015 Constitutional insomnia 01/13/2015 Constitutional No malaise 01/13/2015 Constitutional No weight loss 01/13/2015 Eyes No eye discharge 01/13/2015 Eyes No eye erythema 01/13/2015 Ears/Nose/Throat/Neck No dizziness 01/13/2015 Ears/Nose/Throat/Neck No headache 01/13/2015 Cardiovascular No chest pain/pressure 01/13/2015 Cardiovascular No dyspnea 01/13/2015 Cardiovascular edema 01/13/2015 Respiratory No productive sputum 01/13/2015 Respiratory No chest congestion 01/13/2015 Respiratory dyspnea on exertion 01/13/2015 Gastrointestinal No abdominal pain 01/13/2015 Gastrointestinal No constipation 01/13/2015 Gastrointestinal diarrhea 01/13/2015 Genitourinary/Nephrology No dysuria 01/13/2015 Musculoskeletal back pain 01/13/2015 Dermatologic No rash 01/13/2015 Dermatologic No sores 01/13/2015 Neurologic No alteration of consciousness 01/13/2015 Psychiatric anxiety 01/13/2015 Psychiatric No depression 01/13/2015 Endocrine dry or coarse skin 01/13/2015 Endocrine hair loss 01/13/2015 Endocrine No polydipsia 01/13/2015 Constitutional No recent illness 12/16/2014 Constitutional No anorexia 12/16/2014 Constitutional No night sweats 12/16/2014 Constitutional No chills 12/16/2014 Constitutional No diaphoresis 12/16/2014 Constitutional fatigue 12/16/2014 Constitutional No fever 12/16/2014 Constitutional insomnia 12/16/2014 Constitutional No malaise 12/16/2014 Constitutional No weight loss 12/16/2014 Constitutional weight gain 12/16/2014 Eyes No eye discharge 12/16/2014 Eyes No eye erythema 12/16/2014 Ears/Nose/Throat/Neck No dizziness 12/16/2014 Ears/Nose/Throat/Neck No headache 12/16/2014 Ears/Nose/Throat/Neck nasal allergies 12/16/2014 Ears/Nose/Throat/Neck nasal discharge 12/16/2014 Cardiovascular No chest pain/pressure 12/16/2014 Cardiovascular No dyspnea 12/16/2014 Cardiovascular edema 12/16/2014 Respiratory No productive sputum 12/16/2014 Respiratory No chest congestion 12/16/2014 Respiratory dyspnea on exertion 12/16/2014 Gastrointestinal No abdominal pain 12/16/2014 Gastrointestinal No constipation 12/16/2014 Gastrointestinal diarrhea 12/16/2014 Genitourinary/Nephrology No dysuria 12/16/2014 Musculoskeletal back pain 12/16/2014 Dermatologic No rash [...] 1994 Constitutional general appearance Overall: well developed 10/29/2018 None Full Exam - General 1994 Constitutional general appearance Overall: in no acute distress 10/29/2018 None Full Exam - General 1994 Constitutional general appearance Overall: well nourished 10/29/2018 None Full Exam - General 1994 Eyes conjunctiva/eyelids Overall: conjunctiva clear 10/29/2018 None Full Exam - General 1994 Eyes conjunctiva/eyelids Overall: eyelids normal 10/29/2018 None Full Exam - General 1994 Ears/Nose/Throat lips/teeth/gingiva Overall: benign lips 10/29/2018 None Full Exam - General 1994 Respiratory auscultation Overall: breath sounds clear bilaterally 10/29/2018 None Full Exam - General 1994 Respiratory respiratory effort/rhythm Overall: no retractions 10/29/2018 None Full Exam - General 1994 Respiratory respiratory effort/rhythm Overall: normal rate 10/29/2018 None Full Exam - General 1994 Cardiovascular extremities Overall: no clubbing 10/29/2018 None Full Exam - General 1994 Cardiovascular auscultation of heart Overall: regular rate 10/29/2018 None Full Exam - General 1994 Cardiovascular auscultation of heart Overall: normal heart sounds 10/29/2018 None Full Exam - General 1994 Cardiovascular auscultation of heart Overall: no murmurs 10/29/2018 None Full Exam - General 1994 Abdomen abdominal exam Overall: no tenderness 10/29/2018 None Full Exam - General 1994 Abdomen abdominal exam Overall: normal bowel sounds 10/29/2018 None Full Exam - General 1994 Musculoskeletal head and neck Overall: head atraumatic 10/29/2018 None Full Exam - General 1994 Neurologic cranial nerves Overall: crainial nerves 2 - 12 grossly intact 10/29/2018 None Full Exam - General 1994 Psychiatric orientation/consciousness Overall: oriented to person, place and time 10/29/2018 None Full Exam - General 1994 Psychiatric mood and affect Overall: normal mood and affect 10/29/2018 None Full Exam - General 1994 Psychiatric appearance Overall: well-groomed, good eye contact 10/29/2018 None Full Exam - General 1994 Lymphatic neck nodes Overall: anterior cervical chain benign 10/29/2018 None Full Exam - General 1994 Lymphatic neck nodes Overall: posterior cervical chain benign 10/29/2018 None Full Exam - General 1994 Constitutional general appearance Overall: well developed 09/05/2018 None Full Exam - General 1994 Constitutional general appearance Overall: in no acute distress 09/05/2018 None Full Exam - General 1994 Constitutional general appearance Overall: well nourished 09/05/2018 None Full Exam - General 1994 Eyes conjunctiva/eyelids Overall: conjunctiva clear 09/05/2018 None Full Exam - General 1994 Eyes conjunctiva/eyelids Overall: eyelids normal 09/05/2018 None Full Exam - General 1994 Ears/Nose/Throat lips/teeth/gingiva Overall: benign lips 09/05/2018 None Full Exam - General 1994 Respiratory auscultation Overall: breath sounds clear bilaterally 09/05/2018 None Full Exam - General 1994 Respiratory respiratory effort/rhythm Overall: no retractions 09/05/2018 None Full Exam - General 1994 Respiratory respiratory effort/rhythm Overall: normal rate 09/05/2018 None Full Exam - General 1994 Cardiovascular extremities Overall: no clubbing 09/05/2018 None Full Exam - General 1994 Cardiovascular auscultation of heart Overall: regular rate 09/05/2018 None Full Exam - General 1994 Cardiovascular auscultation of heart Overall: normal heart sounds 09/05/2018 None Full Exam - General 1994 Cardiovascular auscultation of heart Overall: no murmurs 09/05/2018 None Full Exam - General 1994 Abdomen abdominal exam Overall: no tenderness 09/05/2018 None Full Exam - General 1994 Abdomen abdominal exam Overall: normal bowel sounds 09/05/2018 None Full Exam - General 1994 Musculoskeletal head and neck Overall: head atraumatic 09/05/2018 None Full Exam - General 1994 Neurologic cranial nerves Overall: crainial nerves 2 - 12 grossly intact 09/05/2018 None Full Exam - General 1994 Psychiatric orientation/consciousness Overall: oriented to person, place and time 09/05/2018 None Full Exam - General 1994 Psychiatric mood and affect Overall: normal mood and affect 09/05/2018 None Full Exam - General 1994 Psychiatric appearance Overall: well-groomed, good eye contact 09/05/2018 None Full Exam - General 1994 Constitutional general appearance Overall: well developed 08/15/2018 None Full Exam - General 1994 Constitutional general appearance Overall: in no acute distress 08/15/2018 None Full Exam - General 1995 Constitutional general appearance Overall: well nourished 08/15/2018 None Full Exam - General 1994 Eyes conjunctiva/eyelids Overall: conjunctiva clear 08/15/2018 None Full Exam - General 1995 Eyes conjunctiva/eyelids Overall: eyelids normal 08/15/2018 None Full Exam - General 1995 Ears/Nose/Throat otoscopic exam Overall: external auditory canals clear 08/15/2018 None Full Exam - General 1994 Ears/Nose/Throat otoscopic exam Tympanic membrane: air-fluid level 08/15/2018 None Full Exam - General 1995 Ears/Nose/Throat lips/teeth/gingiva Overall: benign lips 08/15/2018 None Full Exam - General 1995 Ears/Nose/Throat oral cavity/pharynx/larynx Overall: oral mucosa clear 08/15/2018 None Full Exam - General 1994 Ears/Nose/Throat oral cavity/pharynx/larynx Posterior Pharynx: clear post nasal drainage 08/15/2018 None Full Exam - General 1994 Respiratory auscultation Diffuse: diminished 08/15/2018 None Full Exam - General 1994 Respiratory auscultation Lower lung field: expiratory wheezes 08/15/2018 None Full Exam - General 1994 Respiratory respiratory effort/rhythm Overall: no retractions 08/15/2018 None Full Exam - General 1994 Respiratory respiratory effort/rhythm Overall: normal rate 08/15/2018 None Full Exam - General 1994 Cardiovascular auscultation of heart Overall: regular rate 08/15/2018 None Full Exam - General 1994 Cardiovascular auscultation of heart Overall: normal heart sounds 08/15/2018 None Full Exam - General 1994 Lymphatic neck nodes Overall: anterior cervical chain benign 08/15/2018 None Full Exam - General 1994 Lymphatic neck nodes Overall: posterior cervical chain benign 08/15/2018 None Full Exam - General 1994 Neurologic cranial nerves Overall: crainial nerves 2 - 12 grossly intact 08/15/2018 None Full Exam - General 1994 Psychiatric orientation/consciousness Overall: oriented to person, place and time 08/15/2018 None Full Exam - General 1994 Psychiatric mood and affect Overall: normal mood and affect 08/15/2018 None Full Exam - General 1994 Eyes conjunctiva/eyelids Overall: cornea clear 08/15/2018 None Full Exam - General 1994 Constitutional general appearance Overall: well developed 05/03/2018 None Full Exam - General 1994 Constitutional general appearance Overall: in no acute distress 05/03/2018 None Full Exam - General 1994 Constitutional general appearance Overall: well nourished 05/03/2018 None Full Exam - General 1994 Eyes conjunctiva/eyelids Overall: conjunctiva clear 05/03/2018 None Full Exam - General 1994 Eyes conjunctiva/eyelids Overall: eyelids normal 05/03/2018 None Full Exam - General 1994 Ears/Nose/Throat lips/teeth/gingiva Overall: benign lips 05/03/2018 None Full Exam - General 1994 Respiratory auscultation Overall: breath sounds clear bilaterally 05/03/2018 None Full Exam - General 1994 Respiratory respiratory effort/rhythm Overall: no retractions 05/03/2018 None Full Exam - General 1994 Respiratory respiratory effort/rhythm Overall: normal rate 05/03/2018 None Full Exam - General 1994 Cardiovascular extremities Overall: no clubbing 05/03/2018 None Full Exam - General 1994 Cardiovascular auscultation of heart Overall: regular rate 05/03/2018 None Full Exam - General 1994 Cardiovascular auscultation of heart Overall: normal heart sounds 05/03/2018 None Full Exam - General 1994 Cardiovascular auscultation of heart Overall: no murmurs 05/03/2018 None Full Exam - General 1994 Abdomen abdominal exam Overall: no tenderness 05/03/2018 None Full Exam - General 1994 Abdomen abdominal exam Overall: normal bowel sounds 05/03/2018 None Full Exam - General 1994 Musculoskeletal head and neck Overall: head atraumatic 05/03/2018 None Full Exam - General 1994 Neurologic cranial nerves Overall: crainial nerves 2 - 12 grossly intact 05/03/2018 None Full Exam - General 1994 Psychiatric orientation/consciousness Overall: oriented to person, place and time 05/03/2018 None Full Exam - General 1994 Psychiatric mood and affect Overall: normal mood and affect 05/03/2018 None Full Exam - General 1994 Psychiatric appearance Overall: well-groomed, good eye contact 05/03/2018 None Full Exam - General 1994 Constitutional general appearance Overall: well developed 02/26/2018 None Full Exam - General 1994 Constitutional general appearance Overall: in no acute distress 02/26/2018 None Full Exam - General 1994 Constitutional general appearance Overall: well nourished 02/26/2018 None Full Exam - General 1994 Eyes conjunctiva/eyelids Overall: conjunctiva clear 02/26/2018 None Full Exam - General 1994 Eyes conjunctiva/eyelids Overall: eyelids normal 02/26/2018 None Full Exam - General 1994 Ears/Nose/Throat lips/teeth/gingiva Overall: benign lips 02/26/2018 None Full Exam - General 1994 Respiratory auscultation Overall: breath sounds clear bilaterally 02/26/2018 None Full Exam - General 1994 Respiratory respiratory effort/rhythm Overall: no retractions 02/26/2018 None Full Exam - General 1994 Respiratory respiratory effort/rhythm Overall: normal rate 02/26/2018 None Full Exam - General 1994 Cardiovascular extremities Overall: no clubbing 02/26/2018 None Full Exam - General 1994 Cardiovascular auscultation of heart Overall: regular rate 02/26/2018 None Full Exam - General 1994 Cardiovascular auscultation of heart Overall: normal heart sounds 02/26/2018 None Full Exam - General 1994 Cardiovascular auscultation of heart Overall: no murmurs 02/26/2018 None Full Exam - General 1994 Abdomen abdominal exam Overall: no tenderness 02/26/2018 None Full Exam - General 1994 Abdomen abdominal exam Overall: normal bowel sounds 02/26/2018 None Full Exam - General 1994 Musculoskeletal head and neck Overall: head atraumatic 02/26/2018 None Full Exam - General 1994 Neurologic cranial nerves Overall: crainial nerves 2 - 12 grossly intact 02/26/2018 None Full Exam - General 1994 Psychiatric orientation/consciousness Overall: oriented to person, place and time 02/26/2018 None Full Exam - General 1994 Psychiatric mood and affect Overall: normal mood and affect 02/26/2018 None Full Exam - General 1994 Psychiatric appearance Overall: well-groomed, good eye contact 02/26/2018 None Full Exam - General 1994 Musculoskeletal upper extremity Palpation - shoulder: tenderness @ bicipital groove 02/26/2018 None Full Exam - General 1994 Musculoskeletal upper extremity Palpation - shoulder: tenderness @ subacromial space 02/26/2018 bulge in right upper extreimty at mid bicep point Full Exam - General 1994 Constitutional general appearance Overall: well developed 12/12/2017 None Full Exam - General 1994 Constitutional general appearance Overall: in no acute distress 12/12/2017 None Full Exam - General 1994 Constitutional general appearance Overall: well nourished 12/12/2017 None Full Exam - General 1994 Eyes conjunctiva/eyelids Overall: conjunctiva clear 12/12/2017 None Full Exam - General 1994 Eyes conjunctiva/eyelids Overall: eyelids normal 12/12/2017 None Full Exam [...] None Full Exam - General 1994 Eyes conjunctiva/eyelids Overall: conjunctiva clear 11/20/2017 None Full Exam - General 1994 Eyes conjunctiva/eyelids Overall: eyelids normal 11/20/2017 None Full Exam [...] None Full Exam - General 1994 Eyes conjunctiva/eyelids Overall: conjunctiva clear 09/15/2017 None Full Exam - General 1994 Eyes conjunctiva/eyelids Overall: eyelids normal 09/15/2017 None Full Exam [...] 09/07/2017 None Full Exam - Dermatology Eyes conjunctiva/eyelids Overall: clear conjunctiva bilaterally 09/07/2017 None Full Exam - Dermatology Eyes conjunctiva/eyelids Overall: clear corneas 09/07/2017 None Full Exam - Dermatology Eyes conjunctiva/eyelids Overall: normal eyelids 09/07/2017 None Full Exam [...] None Full Exam - General 1994 Eyes conjunctiva/eyelids Overall: conjunctiva clear 08/30/2017 None Full Exam - General 1994 Eyes conjunctiva/eyelids Overall: eyelids normal 08/30/2017 None Full Exam [...] None Full Exam - General 1994 Eyes conjunctiva/eyelids Overall: conjunctiva clear 07/06/2017 None Full Exam - General 1994 Eyes conjunctiva/eyelids Overall: eyelids normal 07/06/2017 None Full Exam [...] irritated skin - reddened, small ulcer and yeast- like odor Full Exam - ENT Constitutional general appearance Overall: well nourished 06/20/2017 None Full Exam - ENT Constitutional general appearance Overall: well developed 06/20/2017 None Full Exam - ENT Constitutional general appearance Overall: in no acute distress 06/20/2017 None Full Exam - ENT Ears/Nose/Throat otoscopic exam Overall: external auditory canals normal 06/20/2017 None Full Exam - ENT Ears/Nose/Throat otoscopic exam Left tympanic membrane: air-fluid level 06/20/2017 None Full Exam - ENT Ears/Nose/Throat otoscopic exam Right tympanic membrane: air-fluid level 06/20/2017 None Full Exam - ENT Ears/Nose/Throat lips/teeth/gingiva Overall: benign lips 06/20/2017 None Full Exam - ENT Ears/Nose/Throat oropharynx Overall: oral mucosa clear 06/20/2017 None Full Exam - ENT Ears/Nose/Throat oropharynx Posterior Pharynx: clear post nasal drainage 06/20/2017 None Full Exam - ENT Ears/Nose/Throat oropharynx Posterior Pharynx: erythema 06/20/2017 None Full Exam - ENT Respiratory inspection Overall: no retractions 06/20/2017 None Full Exam - ENT Respiratory inspection Overall: normal rate 06/20/2017 None Full Exam - ENT Respiratory auscultation [...] None Full Exam - General 1994 Eyes conjunctiva/eyelids Overall: conjunctiva clear 06/05/2017 None Full Exam - General 1994 Eyes conjunctiva/eyelids Overall: eyelids normal 06/05/2017 None Full Exam [...] None Full Exam - General 1994 Eyes conjunctiva/eyelids Overall: conjunctiva clear 05/25/2017 None Full Exam - General 1994 Eyes conjunctiva/eyelids Overall: cornea clear 05/25/2017 None Full Exam - General 1994 Eyes conjunctiva/eyelids Overall: eyelids normal 05/25/2017 None Full Exam [...] None Full Exam - General 1994 Eyes conjunctiva/eyelids Overall: conjunctiva clear 03/23/2017 None Full Exam - General 1994 Eyes conjunctiva/eyelids Overall: cornea clear 03/23/2017 None Full Exam - General 1994 Eyes conjunctiva/eyelids Overall: eyelids normal 03/23/2017 None Full Exam [...] None Full Exam - General 1994 Eyes conjunctiva/eyelids Overall: conjunctiva clear 01/23/2017 None Full Exam - General 1994 Eyes conjunctiva/eyelids Overall: cornea clear 01/23/2017 None Full Exam - General 1994 Eyes conjunctiva/eyelids Overall: eyelids normal 01/23/2017 None Full Exam [...] time 01/23/2017 None Full Exam - General 1995 Psychiatric mood and affect Overall: normal mood and affect 01/23/2017 None Full Exam - Orthopedics Constitutional general appearance Overall: well nourished 11/02/2016 None Full Exam - Orthopedics Constitutional general appearance Overall: well developed 11/02/2016 None Full Exam - Orthopedics Constitutional general appearance Overall: in no acute distress 11/02/2016 None Full Exam - Orthopedics Eyes conjunctiva/eyelids Overall: conjunctiva clear 11/02/2016 None Full Exam - Orthopedics Eyes conjunctiva/eyelids Overall: eyelids normal 11/02/2016 None Full Exam [...] bending: pain radiating to the lumbar region 11/02/2016 None Full Exam - Orthopedics MS: spine/rib/pelvis range of motion - S/R/P Right lateral thoracic bending: pain radiating to the lumbar region 11/02/2016 None Full Exam - Orthopedics Psychiatric [...] None Full Exam - General 1994 Eyes conjunctiva/eyelids Overall: conjunctiva clear 09/29/2016 None Full Exam - General 1994 Eyes conjunctiva/eyelids Overall: cornea clear 09/29/2016 None Full Exam - General 1994 Eyes conjunctiva/eyelids Overall: eyelids normal 09/29/2016 None Full Exam [...] None Full Exam - General 1994 Eyes conjunctiva/eyelids Overall: conjunctiva clear 07/26/2016 None Full Exam - General 1994 Eyes conjunctiva/eyelids Overall: eyelids normal 07/26/2016 None Full Exam [...] None Full Exam - General 1994 Eyes conjunctiva/eyelids Overall: conjunctiva clear 05/30/2016 None Full Exam - General 1994 Eyes conjunctiva/eyelids Overall: eyelids normal 05/30/2016 None Full Exam [...] None Full Exam - General 1994 Eyes conjunctiva/eyelids Overall: conjunctiva clear 05/25/2016 None Full Exam - General 1994 Eyes conjunctiva/eyelids Overall: eyelids normal 05/25/2016 None Full Exam [...] None Full Exam - General 1994 Eyes conjunctiva/eyelids Overall: conjunctiva clear 02/25/2016 None Full Exam - General 1994 Eyes conjunctiva/eyelids Overall: cornea clear 02/25/2016 None Full Exam - General 1994 Eyes conjunctiva/eyelids Overall: eyelids normal 02/25/2016 None Full Exam [...] None Full Exam - General 1994 Eyes conjunctiva/eyelids Overall: conjunctiva clear 01/25/2016 None Full Exam - General 1994 Eyes conjunctiva/eyelids Overall: cornea clear 01/25/2016 None Full Exam - General 1994 Eyes conjunctiva/eyelids Overall: eyelids normal 01/25/2016 None Full Exam [...] None Full Exam - General 1994 Eyes conjunctiva/eyelids Overall: conjunctiva clear 11/11/2015 None Full Exam - General 1994 Eyes conjunctiva/eyelids Overall: cornea clear 11/11/2015 None Full Exam - General 1994 Eyes conjunctiva/eyelids Overall: eyelids normal 11/11/2015 None Full Exam [...] General 1994 Ears/Nose/Throat otoscopic exam Tympanic membrane: air-fluid level 11/11/2015 None Full Exam - General [...] None Full Exam - General 1994 Eyes conjunctiva/eyelids Overall: conjunctiva clear 10/12/2015 None Full Exam - General 1994 Eyes conjunctiva/eyelids Overall: cornea clear 10/12/2015 None Full Exam - General 1994 Eyes conjunctiva/eyelids Overall: eyelids normal 10/12/2015 None Full Exam [...] None Full Exam - General 1994 Eyes conjunctiva/eyelids Overall: conjunctiva clear 09/03/2015 None Full Exam - General 1994 Eyes conjunctiva/eyelids Overall: cornea clear 09/03/2015 None Full Exam - General 1994 Eyes conjunctiva/eyelids Overall: eyelids normal 09/03/2015 None Full Exam [...] None Full Exam - General 1994 Eyes conjunctiva/eyelids Overall: conjunctiva clear 05/19/2015 None Full Exam - General 1994 Eyes conjunctiva/eyelids Overall: cornea clear 05/19/2015 None Full Exam - General 1994 Eyes conjunctiva/eyelids Overall: eyelids normal 05/19/2015 None Full Exam [...] None Full Exam - General 1994 Eyes conjunctiva/eyelids Overall: conjunctiva clear 05/12/2015 None Full Exam - General 1994 Eyes conjunctiva/eyelids Overall: cornea clear 05/12/2015 None Full Exam - General 1994 Eyes conjunctiva/eyelids Overall: eyelids normal 05/12/2015 None Full Exam [...] developed 12/16/2014 None Full Exam - General 1995 Constitutional general appearance Overall: in no acute distress 12/16/2014 None Procedures Procedure Codes Date THER/PROPH/DIAG INJ SC/IM CPT-4: 78819 11/21/2018 THER/PROPH/DIAG INJ SC/IM CPT-4: 70197 11/08/2018 THER/PROPH/DIAG INJ SC/IM CPT-4: 36586 10/23/2018 THER/PROPH/DIAG INJ SC/IM CPT-4: 90384 10/10/2018 THER/PROPH/DIAG INJ SC/IM CPT-4: 97508 09/27/2018 THER/PROPH/DIAG INJ SC/IM CPT-4: 52743 09/11/2018 THER/PROPH/DIAG INJ SC/IM CPT-4: 59131 08/29/2018 THER/PROPH/DIAG INJ SC/IM CPT-4: 80984 08/15/2018 TRIAMCINOLONE ACET INJ NOS CPT-4: J3301 08/15/2018 THER/PROPH/DIAG INJ SC/IM CPT-4: 53109 08/01/2018 VITAMIN B12 INJECTION CPT- 4: J3420 08/01/2018 THER/PROPH/DIAG INJ SC/IM CPT-4: 55090 07/19/2018 THER/PROPH/DIAG INJ SC/IM CPT-4: 69229 07/04/2018 THER/PROPH/DIAG INJ SC/IM CPT-4: 36918 06/20/2018 THER/PROPH/DIAG INJ SC/IM CPT-4: 78309 06/06/2018 VITAMIN B12 INJECTION CPT- 4: J3420 06/06/2018 THER/PROPH/DIAG INJ SC/IM CPT-4: 51722 05/24/2018 THER/PROPH/DIAG INJ SC/IM CPT-4: 88263 05/09/2018 THER/PROPH/DIAG INJ SC/IM CPT-4: 08150 04/26/2018 VITAMIN B12 INJECTION CPT- 4: J3420 04/26/2018 THER/PROPH/DIAG INJ SC/IM CPT-4: 76796 04/12/2018 THER/PROPH/DIAG INJ SC/IM CPT-4: 70096 03/30/2018 THER/PROPH/DIAG INJ SC/IM CPT-4: 59233 03/16/2018 VITAMIN B12 INJECTION CPT- 4: J3420 03/16/2018 ADMIN INFLUENZA VIRUS VAC CPT-4: G0008 03/16/2018 FLU VACC PRSV FREE INC ANTIG Formatting Model/CDA Sections, Assigned to/[employer] CPT-4: 35298Rwpmact 03/16/2018 THER/PROPH/DIAG INJ SC/IM CPT-4: 11515 03/02/2018 THER/PROPH/DIAG INJ SC/IM CPT-4: 26978 02/08/2018 THER/PROPH/DIAG INJ SC/IM CPT-4: 21658 01/24/2018 THER/PROPH/DIAG INJ SC/IM CPT-4: 34478 01/10/2018 THER/PROPH/DIAG INJ SC/IM CPT-4: 80122 12/27/2017 VITAMIN B12 INJECTION CPT- 4: J3420 12/27/2017 THER/PROPH/DIAG INJ SC/IM CPT-4: 27445 12/12/2017 THER/PROPH/DIAG INJ SC/IM CPT-4: 94350 12/01/2017 VITAMIN B12 INJECTION CPT- 4: J3420 12/01/2017 THER/PROPH/DIAG INJ SC/IM CPT-4: 92312 11/17/2017 THER/PROPH/DIAG INJ SC/IM CPT-4: 82863 11/02/2017 THER/PROPH/DIAG INJ SC/IM CPT-4: 95809 10/20/2017 THER/PROPH/DIAG INJ SC/IM CPT-4: 65295 10/06/2017 THER/PROPH/DIAG INJ SC/IM CPT-4: 23568 09/21/2017 TRIAMCINOLONE ACET INJ NOS CPT-4: J3301 09/15/2017 THER/PROPH/DIAG INJ SC/IM CPT-4: 55779 09/07/2017 THER/PROPH/DIAG INJ SC/IM CPT-4: 15740 08/24/2017 THER/PROPH/DIAG INJ SC/IM CPT-4: 75476 07/06/2017 THER/PROPH/DIAG INJ SC/IM CPT-4: 42087 06/20/2017 TRIAMCINOLONE ACET INJ NOS CPT-4: J3301 06/20/2017 PPPS, SUBSEQ VISIT CPT- 4: G0439 06/05/2017 THER/PROPH/DIAG INJ SC/IM CPT-4: 52642 06/05/2017 THER/PROPH/DIAG INJ SC/IM CPT-4: 04387 05/25/2017 VITAMIN B12 INJECTION CPT- 4: J3420 05/25/2017 THER/PROPH/DIAG INJ SC/IM CPT-4: 75720 05/16/2017 THER/PROPH/DIAG INJ SC/IM CPT-4: 35689 05/01/2017 THER/PROPH/DIAG INJ SC/IM CPT-4: 70211 04/18/2017 THER/PROPH/DIAG INJ SC/IM CPT-4: 34899 04/06/2017 ADMIN INFLUENZA VIRUS VAC CPT-4: G0008 03/22/2017 FLU VACC PRSV FREE INC ANTIG CPT-4: 67912 03/22/2017 THER/PROPH/DIAG INJ SC/IM CPT-4: 55788 03/09/2017 THER/PROPH/DIAG INJ SC/IM CPT-4: 21980 02/23/2017 THER/PROPH/DIAG INJ SC/IM CPT-4: 18459 02/09/2017 THER/PROPH/DIAG INJ SC/IM CPT-4: 11442 01/23/2017 THER/PROPH/DIAG INJ SC/IM CPT-4: 92553 01/10/2017 THER/PROPH/DIAG INJ SC/IM CPT-4: 02556 12/28/2016 THER/PROPH/DIAG INJ SC/IM CPT-4: 74679 12/14/2016 THER/PROPH/DIAG INJ SC/IM CPT-4: 30223 11/24/2016 URINALYSIS NONAUTO W/O SCOPE CPT-4: 52437 11/07/2016 THER/PROPH/DIAG INJ SC/IM CPT-4: 21955 11/07/2016 THER/PROPH/DIAG INJ SC/IM CPT-4: 45648 10/24/2016 THER/PROPH/DIAG INJ SC/IM CPT-4: 20438 09/29/2016 THER/PROPH/DIAG INJ SC/IM CPT-4: 83718 08/29/2016 THER/PROPH/DIAG INJ SC/IM CPT-4: 79833 08/04/2016 THER/PROPH/DIAG INJ SC/IM CPT-4: 58960 07/21/2016 THER/PROPH/DIAG INJ SC/IM CPT-4: 24496 07/05/2016 THER/PROPH/DIAG INJ SC/IM CPT-4: 56356 06/22/2016 URINALYSIS NONAUTO W/O SCOPE CPT-4: 16658 06/22/2016 THER/PROPH/DIAG INJ SC/IM CPT-4: 14728 06/09/2016 PPPS, SUBSEQ VISIT CPT- 4: G0439 05/30/2016 ADMIN PNEUMOCOCCAL VACCINE SNOMED CT: [id number] CPT-4: G0009 05/25/2016 Pneumococcal Polysaccharide Vaccine, 23-Valent, Ad CPT-4: 26419 05/25/2016 THER/PROPH/DIAG INJ SC/IM CPT-4: 89067 05/25/2016 THER/PROPH/DIAG INJ SC/IM CPT-4: 36034 05/10/2016 TRIAMCINOLONE ACET INJ NOS CPT-4: J3301 04/26/2016 VITAMIN B12 INJECTION CPT- 4: J3420 04/26/2016 THER/PROPH/DIAG INJ SC/IM CPT-4: 10728 04/11/2016 THER/PROPH/DIAG INJ SC/IM CPT-4: 23200 03/31/2016 ADMIN INFLUENZA VIRUS VAC CPT-4: G0008 03/15/2016 FLU VACC 4 STEPHANIE [address] YRS [address]US IM SNOMED CT: [id number] CPT-4: 74577 03/15/2016 THER/PROPH/DIAG INJ SC/IM CPT-4: 79978 02/25/2016 THER/PROPH/DIAG INJ SC/IM CPT-4: 03465 02/02/2016 THER/PROPH/DIAG INJ SC/IM CPT-4: 96101 01/18/2016 VITAMIN B12 INJECTION CPT- 4: J3420 12/29/2015 THER/PROPH/DIAG INJ SC/IM CPT-4: 11052 12/29/2015 THER/PROPH/DIAG INJ SC/IM CPT-4: 10523 12/08/2015 THER/PROPH/DIAG INJ SC/IM CPT-4: 34988 11/23/2015 URINALYSIS NONAUTO W/O SCOPE CPT-4: 59788 11/23/2015 THER/PROPH/DIAG INJ SC/IM CPT-4: 73411 11/11/2015 THER/PROPH/DIAG INJ SC/IM CPT-4: 42639 10/29/2015 THER/PROPH/DIAG INJ SC/IM CPT-4: 73431 10/12/2015 VITAMIN B12 INJECTION CPT- 4: J3420 10/12/2015 THER/PROPH/DIAG INJ SC/IM CPT-4: 43823 09/29/2015 THER/PROPH/DIAG INJ SC/IM CPT-4: 74012 09/17/2015 THER/PROPH/DIAG INJ SC/IM CPT-4: 82652 09/03/2015 THER/PROPH/DIAG INJ SC/IM CPT-4: 22891 08/17/2015 THER/PROPH/DIAG INJ SC/IM CPT-4: 51766 08/06/2015 THER/PROPH/DIAG INJ SC/IM CPT-4: 43016 07/22/2015 THER/PROPH/DIAG INJ SC/IM CPT-4: 97919 07/08/2015 THER/PROPH/DIAG INJ SC/IM CPT-4: 23535 06/23/2015 THER/PROPH/DIAG INJ SC/IM CPT-4: 14725 06/08/2015 THER/PROPH/DIAG INJ SC/IM CPT-4: 45704 05/27/2015 DESTRUCT PREMALG LESION CPT-4: 33769 05/19/2015 DESTRUCT PREMALG LES 2-14 CPT-4: 42763 05/19/2015 THER/PROPH/DIAG INJ SC/IM CPT-4: 30694 05/12/2015 VITAMIN B12 INJECTION CPT- 4: J3420 05/12/2015 THER/PROPH/DIAG INJ SC/IM CPT-4: 59461 04/30/2015 VITAMIN B12 INJECTION CPT- 4: J3420 04/30/2015 THER/PROPH/DIAG INJ SC/IM CPT-4: 26105 04/16/2015 THER/PROPH/DIAG INJ SC/IM CPT-4: 21934 04/02/2015 VITAMIN B12 INJECTION CPT- 4: J3420 04/02/2015 THER/PROPH/DIAG INJ SC/IM CPT-4: 94132 03/18/2015 THER/PROPH/DIAG INJ SC/IM CPT-4: 96916 03/03/2015 THER/PROPH/DIAG INJ SC/IM CPT-4: 17979 02/18/2015 THER/PROPH/DIAG INJ SC/IM CPT-4: 71610 02/04/2015 VITAMIN B12 INJECTION CPT- 4: J3420 02/04/2015 THER/PROPH/DIAG INJ SC/IM CPT-4: 49678 01/22/2015 THER/PROPH/DIAG INJ SC/IM CPT-4: 11371 01/08/2015 VITAMIN B12 INJECTION CPT- 4: J3420 01/08/2015 THER/PROPH/DIAG INJ SC/IM CPT-4: 85422 12/25/2014 VITAMIN B12 INJECTION CPT- 4: J3420 12/25/2014 THER/PROPH/DIAG INJ SC/IM CPT-4: 33676 12/10/2014 VITAMIN B12 INJECTION CPT- 4: J3420 12/10/2014 THER/PROPH/DIAG INJ SC/IM CPT-4: 53072 11/26/2014 VITAMIN B12 INJECTION CPT- 4: J3420 11/26/2014 THER/PROPH/DIAG INJ SC/IM CPT-4: 30797 11/12/2014 VITAMIN B12 INJECTION CPT- 4: J3420 11/12/2014 THER/PROPH/DIAG INJ SC/IM CPT-4: 92631 10/28/2014 Vital Signs Date Vital 10/29/2018 Blood Pressure 1: 118/68 Code: 8480-6 BMI: 28.1 Code: 79956-2 Heart Rate 1: 64 bpm Height: 5'6" SpO2: 99% Weight: 174 lbs 09/05/2018 Blood Pressure 1: 122/70 Code: 8480-6 BMI: 27.1 Code: 21962-6 Heart Rate 1: 90 bpm Height: 5'6" SpO2: 97% Weight: 168 lbs 08/15/2018 Blood Pressure 1: 142/76 Code: 8480-6 BMI: 27.4 Code: 68955-5 Heart Rate 1: 74 bpm Height: 5'6" SpO2: 95% Temperature: 36.7 (C) / 98.1 (F) Weight: 170 lbs 05/03/2018 Blood Pressure 1: 140/70 Code: 8480-6 BMI: 26.0 Code: 68159-6 Heart Rate 1: 70 bpm Height: 5'6" SpO2: 94% Weight: 161 lbs 04/26/2018 Height: 5'6" 02/26/2018 Blood Pressure 1: 130/72 Code: 8480-6 BMI: 27.9 Code: 95349-5 Heart Rate 1: 72 bpm Height: 5'6" SpO2: 93% Weight: 173 lbs 12/12/2017 Blood Pressure 1: 126/74 Code: 8480-6 BMI: 27.4 Code: 56482-4 Heart Rate 1: 83 bpm Height: 5'6" SpO2: 98% Weight: 170 lbs 12/04/2017 Blood Pressure 1: 104/68 Code: 8480-6 BMI: 28.2 Code: 30001-4 Heart Rate 1: 85 bpm Height: 5'6" SpO2: 95% Weight: 175 lbs 11/20/2017 Blood Pressure 1: 130/68 Code: 8480-6 BMI: 28.4 Code: 80714-5 Heart Rate 1: 80 bpm Height: 5'6" SpO2: 99% Weight: 176 lbs 11/02/2017 Height: 5'6" 09/15/2017 Blood Pressure 1: 134/74 Code: 8480-6 BMI: 28.4 Code: 85667-2 Heart Rate 1: 88 bpm Height: 5'6" SpO2: 98% Weight: 176 lbs 09/07/2017 Blood Pressure 1: 124/64 Code: 8480-6 Heart Rate 1: 90 bpm Height: SpO2: 97% Weight: 08/30/2017 Blood Pressure 1: 140/76 Code: 8480-6 BMI: 28.4 Code: 87344-1 Heart Rate 1: 90 bpm Height: 5'6" SpO2: 94% Weight: 176 lbs 07/06/2017 Blood Pressure 1: 132/66 Code: 8480-6 BMI: 29.4 Code: 46667-3 Heart Rate 1: 85 bpm Height: 5'6" SpO2: 97% Weight: 182 lbs 06/20/2017 Blood Pressure 1: 134/86 Code: 8480-6 Heart Rate 1: 90 bpm Height: SpO2: 98% Weight: 06/05/2017 BMI: 29.1 Code: 10953-0 Height: 5'6" Weight: 180 lbs 05/25/2017 Blood Pressure 1: 126/76 Code: 8480-6 BMI: 29.1 Code: 61615-2 Heart Rate 1: 77 bpm Height: 5'6" SpO2: 97% Weight: 180 lbs 03/23/2017 Blood Pressure 1: 142/84 Code: 8480-6 BMI: 29.1 Code: 40683-1 Heart Rate 1: 91 bpm Height: 5'6" SpO2: 97% Weight: 180 lbs 01/23/2017 Blood Pressure 1: 150/90 Code: 8480-6 BMI: 29.9 Code: 68986-2 Heart Rate 1: 81 bpm Height: 5'6" SpO2: 97% Weight: 185 lbs 11/02/2016 Blood Pressure 1: 148/78 Code: 8480-6 BMI: 29.7 Code: 43958-4 Heart Rate 1: 87 bpm Height: 5'6" SpO2: 97% Weight: 184 lbs 09/29/2016 Blood Pressure 1: 128/78 Code: 8480-6 BMI: 29.7 Code: 96979-0 Heart Rate 1: 78 bpm Height: 5'6" SpO2: 98% Weight: 184 lbs 07/26/2016 Blood Pressure 1: 138/72 Code: 8480-6 BMI: 30.0 Code: 65083-0 Heart Rate 1: 85 bpm Height: 5'6" SpO2: 97% Weight: 186 lbs 05/30/2016 Blood Pressure 1: 132/76 Code: 8480-6 BMI: 30.0 Code: 45881-1 Heart Rate 1: 80 bpm Height: 5'6" SpO2: 98% Waist Measure (cm): 99 cm Weight: 186 lbs 05/25/2016 Blood Pressure 1: 132/76 Code: 8480-6 BMI: 30.0 Code: 10328-2 Heart Rate 1: 80 bpm Height: 5'6" SpO2: 96% Weight: 186 lbs 02/25/2016 Blood Pressure 1: 110/64 Code: 8480-6 Heart Rate 1: 82 bpm Height: SpO2: 96% Weight: 01/25/2016 Blood Pressure 1: 118/70 Code: 8480-6 BMI: 30.0 Code: 84755-3 Heart Rate 1: 78 bpm Height: 5'6" SpO2: 97% Weight: 186 lbs 11/11/2015 Blood Pressure 1: 128/82 Code: 8480-6 BMI: 29.2 Code: 79699-4 Heart Rate 1: 86 bpm Height: 5'6" SpO2: 96% Temperature: 36.4 (C) / 97.6 (F) Weight: 181 lbs 10/12/2015 Blood Pressure 1: 118/70 Code: 8480-6 BMI: 29.2 Code: 57828-2 Heart Rate 1: 81 bpm Height: 5'6" SpO2: 95% Weight: 181 lbs 09/03/2015 Blood Pressure 1: 138/78 Code: 8480-6 BMI: 29.9 Code: 12867-8 Heart Rate 1: 88 bpm Height: 5'6" SpO2: 97% Weight: 185 lbs 05/19/2015 Blood Pressure 1: 146/78 Code: 8480-6 BMI: 30.0 Code: 16846-8 Heart Rate 1: 66 bpm Height: 5'6" SpO2: 97% Weight: 186 lbs 05/12/2015 Blood Pressure 1: 120/70 Code: 8480-6 BMI: 29.9 Code: 83534-0 Heart Rate 1: 89 bpm Height: 5'6" SpO2: 95% Weight: 185 lbs 01/13/2015 Blood Pressure 1: 140/90 Code: 8480-6 BMI: 30.3 Code: 08892-5 Heart Rate 1: 84 bpm Height: 5'6" SpO2: 95% Weight: 188 lbs 12/16/2014 Blood Pressure 1: 140/82 Code: 8480-6 BMI: 29.5 Code: 58766-1 Heart Rate 1: 86 bpm Height: 5'6" Weight: 183 lbs Functional Status No Functional Status data History of Present Illness Symptom Name Status Result Effective Date Notes Quality intermittent 10/29/2018 None Quality productive 10/29/2018 None Onset and Resolution ongoing 10/29/2018 None Pertinent Findings sputum production 10/29/2018 -mostly white Pertinent Findings chest discomfort 10/29/2018 None Location in the larynx 10/29/2018 None Location in the lung 10/29/2018 None Quality chronic 10/29/2018 None Onset and Resolution ongoing 09/05/2018 None Onset of Symptom during adulthood 09/05/2018 None Blood Pressure Values patient checking blood pressure at home - did not bring in readings 09/05/2018 None Alleviating Factors medication 09/05/2018 None Quality chronic 09/05/2018 None Quality primary hypertension 09/05/2018 None Glucose monitoring twice daily 09/05/2018 None Nutrition regular diet 09/05/2018 None Exercise minimal exercise 09/05/2018 None Location in the lung 08/15/2018 None Quality chronic 08/15/2018 None Quality intermittent 08/15/2018 None Onset and Resolution ongoing 08/15/2018 None Pertinent Findings Denies fever 08/15/2018 None Pertinent Findings Denies dyspnea 08/15/2018 None cough Location in the throat 05/03/2018 None cough Quality productive 05/03/2018 None cough Onset and Resolution sudden in onset 05/03/2018 None cough Pertinent Findings Denies dyspnea 05/03/2018 None cough Pertinent Findings Denies fever 05/03/2018 None cough Onset of Symptom _ months ago 05/03/2018 None pruritus Location-Major on the head 05/03/2018 None pruritus Location-Head/Neck on the scalp 05/03/2018 None pruritus Location-Head/Neck on both cheeks 05/03/2018 None pruritus Color brown 05/03/2018 None pruritus Onset and Resolution gradual in onset 05/03/2018 None pruritus Onset of Symptom _ months ago 05/03/2018 None pruritus Pertinent Findings itching 05/03/2018 None shoulder pain Location on the right shoulder 02/26/2018 None shoulder pain Quality constant 02/26/2018 None shoulder pain Quality worsening 02/26/2018 None shoulder pain Onset and Resolution sudden in onset 02/26/2018 None shoulder pain Onset of Symptom 1 weeks ago 02/26/2018 None shoulder pain Frequency of Episodes hourly 02/26/2018 None shoulder pain Limitation on Activities moderately limits activities 02/26/2018 None shoulder pain Pertinent Findings Denies cough 02/26/2018 None shoulder pain Pertinent Findings limited range of motion 02/26/2018 None shoulder pain Pertinent Findings point tenderness 02/26/2018 None shoulder pain Pertinent Findings swelling 02/26/2018 None shoulder pain Pertinent Findings loss of range of motion 02/26/2018 None shoulder pain Pertinent Findings loss of strength 02/26/2018 None cough Onset and Resolution sudden in onset 12/12/2017 None cough Onset of Symptom 3 weeks ago 12/12/2017 None cough Frequency of Episodes daily 12/12/2017 None cough Quality acute 12/12/2017 None cough Quality intermittent 12/12/2017 None cough [...] weeks ago 12/04/2017 None cough Quality acute 11/20/2017 None cough Quality intermittent 11/20/2017 None cough [...] the lung 06/20/2017 None cough Quality acute 06/20/2017 None cough Quality productive 06/20/2017 None cough [...] Annual Medicare Wellness Exam Blood Pressure (self reported) high (140/90 or higher) 06/05/2017 None Annual [...] Annual Medicare Wellness Exam Hemaglobin A-1C (self reported) don't know 06/05/2017 None Annual [...] Onset and Resolution ongoing 09/29/2016 -associated with loose, watery stools arm pain Location left arm [...] Annual Medicare Wellness Exam Blood Pressure (self reported) don't know 05/30/2016 None Annual [...] Annual Medicare Wellness Exam Hemaglobin A-1C (self reported) don't know 05/30/2016 None Annual [...] with someone who has been drinking: n 05/30/2016 None Annual Medicare Wellness Exam Nutrition servings of fried food / high fat foods per day: 0 05/30/2016 None Annual Medicare Wellness Exam Nutrition [...] data Encounters Encounter Performer Location Codes Date 00551 EST. PATIENT, LEVEL V Diagnosis: Essential (primary) hypertension[ICD10: I10] Diagnosis: Chronic atrial fibrillation[ICD10: I48.2] Diagnosis: Atrophy of thyroid (acquired)[ICD10: E03.4] Diagnosis: Cough[ICD10: R05] Diagnosis: 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[ICD10: K44.9] Yarely Vega MD, [facility] CPT-4: 00299 10/29/2018 [id number]) 09838 EST. PATIENT, LEVEL IV Diagnosis: Essential (primary) hypertension[ICD10: I10] Diagnosis: Type 2 diabetes mellitus without complications[ICD10: E11.9] Diagnosis: Atrophy of thyroid (acquired)[ICD10: E03.4] Diagnosis: Other vitamin B12 deficiency anemias[ICD10: D51.8] [facility] CPT-4: 46330 09/05/2018 [id number] EST. PATIENT, LEVEL IV Diagnosis: Acute bronchitis due to other specified organisms[ICD10: J20.8] Diagnosis: Cough[ICD10: R05] Diagnosis: 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 factor deficiency[ICD10: D51.0] [facility] CPT-4: 42451 08/15/2018 ([id number]) 90895 EST. PATIENT, LEVEL IV Diagnosis: Essential (primary) hypertension[ICD10: I10] Diagnosis: Type 2 diabetes mellitus without complications[ICD10: E11.9] Yarely Vega MD, [facility] CPT-4: 64112 05/03/2018 ([id number]) 81964 EST. PATIENT, LEVEL III Diagnosis: Pain in left shoulder[ICD10: M25.512] Diagnosis: Pain in right shoulder[ICD10: M25.511] Yarely Vega MD, [facility] CPT-4: 70991 02/26/2018 ([id number]) 89077 EST. PATIENT, LEVEL III Diagnosis: Nausea[ICD10: R11.0] Diagnosis: Cough[ICD10: R05] Diagnosis: 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 factor deficiency[ICD10: D51.0] Janet Vega MD, [facility] CPT-4: 01817 12/12/2017 ([id number]) 25352 EST. PATIENT, LEVEL IV Diagnosis: Acute bronchitis due to Hemophilus influenzae[ICD10: J20.1] Diagnosis: Cough[ICD10: R05] Yarely Vega MD, [facility] CPT-4: 74110 12/04/2017 ([id number]) 02614 EST. PATIENT, LEVEL IV Diagnosis: Essential (primary) hypertension[ICD10: I10] Diagnosis: Cough[ICD10: R05] Diagnosis: Chronic atrial fibrillation[ICD10: I48.2] Yarely Vega MD, [facility] CPT-4: 52579 11/20/2017 ([id number]) 34186 EST. PATIENT, LEVEL III Diagnosis: Cough[ICD10: R05] Diagnosis: Acute upper respiratory infection, unspecified[ICD10: J06.9] Janet Veag MD, [facility] CPT-4: 97384 09/15/2017 69868 EST. PATIENT, LEVEL III Diagnosis: Laceration without foreign body of right forearm, initial encounter[ICD10: S51.811A] Diagnosis: Other vitamin B12 deficiency anemias[ICD10: D51.8] Brianna Vega MD, [facility] CPT-4: 87615 09/07/2017 ([id number]) 70462 EST. PATIENT, LEVEL IV Diagnosis: Chronic atrial fibrillation[ICD10: I48.2] Diagnosis: Other allergic rhinitis[ICD10: J30.89] Diagnosis: Encounter for therapeutic drug level monitoring[ICD10: Z51.81] Yarely Vega MD, [facility] CPT-4: 94744 08/30/2017 ([id number]) 03775 EST. PATIENT, LEVEL IV Diagnosis: Atrophy of thyroid (acquired)[ICD10: E03.4] Diagnosis: Cough[ICD10: R05] Diagnosis: Laceration without foreign body of left forearm, initial encounter[ICD10: S51.812A] Diagnosis: Candidiasis of skin and nail[ICD10: B37.2] Diagnosis: Other vitamin B12 deficiency anemias[ICD10: D51.8] Diagnosis: Slow transit constipation[ICD10: K59.01] Yarely Vega MD, [facility] CPT-4: 12917 07/06/2017 16413 EST. PATIENT, LEVEL III Diagnosis: Other vitamin B12 deficiency anemias[ICD10: D51.8] Diagnosis: Acute laryngopharyngitis[ICD10: J06.0] Diagnosis: Other allergic rhinitis[ICD10: J30.89] Brianna Vega MD, [facility] CPT- 4: 61211 06/20/2017 [id number]) 13715 EST. PATIENT, LEVEL IV Diagnosis: Essential (primary) hypertension[ICD10: I10] Diagnosis: Chronic atrial fibrillation[ICD10: I48.2] Diagnosis: Atrophy of thyroid (acquired)[ICD10: E03.4] Diagnosis: 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 factor deficiency[ICD10: D51.0] Yarely Vega MD, [facility] CPT-4: 54834 05/25/2017 ([id number]) 05420 EST. 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 PATIENT, LEVEL IV Diagnosis: Type 2 diabetes mellitus without complications[ICD10: E11.9] Diagnosis: Essential (primary) hypertension[ICD10: I10] Diagnosis: Headache[ICD10: R51] Diagnosis: Atrophy of thyroid (acquired)[ICD10: E03.4] Diagnosis: Vitamin B12 deficiency anemia, unspecified[ICD10: D51.9] Yarely Vega MD, [facility] CPT-4: 39954 01/23/2017 29335 EST. PATIENT, LEVEL III Diagnosis: Low back pain[ICD10: M54.5] Diagnosis: Pain in thoracic spine[ICD10: M54.6] Brianna Vega MD, [facility] CPT- 4: 49673 11/02/2016 ([id number]) 08264 EST. PATIENT, LEVEL IV Diagnosis: Essential (primary) hypertension[ICD10: I10] Diagnosis: Other vitamin B12 deficiency anemias[ICD10: D51.8] Diagnosis: Generalized abdominal pain[ICD10: R10.84] Yarely Vega MD, [facility] CPT-4: 17134 09/29/2016 ([id number]) 10559 EST. PATIENT, LEVEL IV Diagnosis: Essential (primary) hypertension[ICD10: I10] Yarely Vega MD, [facility] CPT-4: 01557 07/26/2016 ([id number]) 24735 EST. PATIENT, LEVEL IV Diagnosis: Benign lipomatous neoplasm of skin and subcutaneous tissue of right leg[ICD10: D17.23] Diagnosis: Pain in right ankle and joints of right foot[ICD10: M25.571] Diagnosis: Encounter for immunization[ICD10: Z23] Diagnosis: Vitamin B12 deficiency anemia, unspecified[ICD10: D51.9] Yarely eVga MD, [facility] CPT-4: 96180 05/25/2016 28086 EST. PATIENT, LEVEL III Diagnosis: Other chest pain[ICD10: R07.89] Diagnosis: Other vitamin B12 deficiency anemias[ICD10: D51.8] Brianna Vega MD, [facility] CPT-4: 91451 02/25/2016 ([id number]) 79831 EST. 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 PATIENT, LEVEL III Diagnosis: Other vitamin B12 deficiency anemias[ICD10: D51.8] Diagnosis: Acute nasopharyngitis [common cold][ICD10: J00] Diagnosis: Other allergic rhinitis[ICD10: J30.89] Brianna Vega MD, [facility] CPT- 4: 44648 11/11/2015 ([id number]) 64454 EST. PATIENT, LEVEL IV Diagnosis: Essential tremor[ICD10: G25.0] Diagnosis: Chronic fatigue, unspecified[ICD10: R53.82] Diagnosis: Other hypersomnia[ICD10: G47.19] Diagnosis: Essential (primary) hypertension[ICD10: I10] Yarely Vega MD, [facility] CPT-4: 07755 10/12/2015 ([id number]) 23710 EST. PATIENT, LEVEL IV Diagnosis: Essential (primary) hypertension[ICD10: I10] Diagnosis: Chronic atrial fibrillation[ICD10: I48.2] Diagnosis: Abnormal levels of other serum enzymes[ICD10: R74.8] Diagnosis: Type 2 diabetes mellitus without complications[ICD10: E11.9] Diagnosis: Vitamin B12 deficiency anemia, unspecified[ICD10: D51.9] Yarely Vega MD, [facility] CPT-4: 27629 09/03/2015 ([id number]) 31980 EST. PATIENT, LEVEL III Diagnosis: Nausea[ICD10: R11.0] Diagnosis: Essential tremor[ICD10: G25.0] Diagnosis: Actinic keratosis[ICD10: L57.0] Yarely Vega MD, [facility] CPT-4: 17395 05/19/2015 ([id number]) 03755 EST. PATIENT, LEVEL IV Diagnosis: Vitamin B12 deficiency anemia, unspecified[ICD10: D51.9] Diagnosis: Chronic atrial fibrillation[ICD10: I48.2] Diagnosis: Headache[ICD10: R51] Diagnosis: Chronic fatigue, unspecified[ICD10: R53.82] Diagnosis: Cervicalgia[ICD10: M54.2] Yarely Vega MD, [facility] CPT-4: 80744 05/12/2015 ([id number]) 30225 EST. PATIENT, LEVEL IV Diagnosis: ESSENTIAL HYPERTENSION[ICD9: 401.9] Diagnosis: Afib[ICD9: 427.31] Diagnosis: Anxiety[ICD9: 300.00] Diagnosis: Insomnia[ICD9: 780.52] [facility] CPT-4: 24673 01/13/2015 ([id number]) OFFICE VISIT, NEW - LEVEL 4 Diagnosis: Hypothyroidism[ICD9: 244.9] Diagnosis: DIABETES TYPE II[ICD9: 250.00] Diagnosis: ESSENTIAL HYPERTENSION[ICD9: 401.9] Diagnosis: Afib[ICD9: 427.31] Diagnosis: Anxiety[ICD9: 300.00] Diagnosis: B12 deficiency[ICD9: 266.2] Janet Vega MD, [facility] CPT-4: 66898 12/16/2014 Plan of Care Planned Activity Notes Codes Status Date Patient Education: Patient Medication Summary Completed 11/21/2018 Appointment: Injection 11/08/2018 Patient Education: Patient Medication Summary Completed 11/08/2018 Visit Plan: Large Hiatal Hernia - discussed with patient and her daughters - the Hiatal hernia is known and she is not a surgical candidate - I have recommended that with the CT scan findings - we need to make sure that this is not a thickening of the esophagus which could potentially be medina's esophagus - I have therefore recommended a referral to dr. escobedo for scope and the office will call her DTR benji ([phone]) - with appt information Hypertension - well controlled - continue with [...] directed otherwise. Check labs at regular intervals q 3 months or q 6 months based on previous levels of control. Prolonged time spent with patient and her Daughters in discussion of the above recommendations - pt was arguing quite voraciously with her daughters about her illness and how she feels all of the time with her cough and mucus in her throat/neck. - total time was 45 minutes 10/29/2018 Appointment: Yarely Vega WPtel: [phone] [facility] [place] (15 min) Moderate 10/29/2018 Patient Education: Patient Medication Summary Completed 10/29/2018 Patient Education: Hypertension Completed 10/29/2018 Appointment: Injection 10/23/2018 Patient Education: Patient Medication Summary Completed 10/23/2018 Appointment: Yarely Vega WPtel: [address] [facility] [place] (15 min) Moderate 10/22/2018 Appointment: Injection 10/10/2018 Patient Education: Patient Medication Summary Completed 10/10/2018 Appointment: Injection 09/27/2018 Patient Education: Patient Medication Summary Completed 09/27/2018 Appointment: [facility] [phone] [facility] [place] (15 min) Moderate 09/11/2018 Appointment: Injection 09/11/2018 Patient Education: Patient Medication Summary Completed 09/11/2018 Visit Plan: Hypertension - well controlled - continue with current medications, continue with no added salt diet. Pt has been encouraged to exercise daily. The pt has been advised to call the office if there are any acute concerns about change in blood pressure readings at home. Diabetes Mellitus - controlled - per recent [...] directed otherwise. Check labs at regular intervals q 3 months or q 6 months based on previous levels of control. 09/05/2018 Appointment: [facility]Ptel[phone] [facility] (15 min) Moderate 09/05/2018 Patient Education: Patient Medication Summary Completed 09/05/2018 Patient Education: Hypertension Completed 09/05/2018 Patient Education: Diabetes Completed 09/05/2018 Care Plan: Microalbumin Pending 09/05/2018 Appointment: Injection 08/29/2018 Patient Education: Patient Medication Summary Completed 08/29/2018 Visit Plan: Bronchitis - acute case of bronchitis identified. Pt has been given antibiotics, breathing treatments as appropriate, and pt has been instructed to call if symptoms are not improved, or if symptoms acutely worsen. 08/15/2018 Patient Education: Patient Medication Summary Completed 08/15/2018 Appointment: Injection 08/01/2018 Patient Education: Patient Medication Summary Completed 08/01/2018 Appointment: Injection 07/19/2018 Patient Education: Patient Medication Summary Completed 07/19/2018 Appointment: Injection 07/04/2018 Patient Education: Patient Medication Summary Completed 07/04/2018 Appointment: Injection 06/20/2018 Patient Education: Patient Medication Summary Completed 06/20/2018 Appointment: [facility]Ptel[facility] [phone] [facility] (30 min) Complex 06/07/2018 Appointment: Injection 06/06/2018 Patient Education: Patient Medication Summary Completed 06/06/2018 Appointment: [facility]Ptel[facility] [phone] [facility] (15 min) Moderate 05/31/2018 Appointment: Injection 05/24/2018 Patient Education: Patient Medication Summary Completed 05/24/2018 Appointment: Injection 05/09/2018 Patient Education: Patient Medication Summary Completed 05/09/2018 Visit Plan: Hypertension - well controlled - continue with current medications, continue with no added salt diet. Pt has been encouraged to exercise daily. The pt has been advised to call the office if there are any acute concerns about change in blood pressure readings at home. Diabetes Mellitus - controlled - per recent [...] readings are starting to become less controlled. Chronic cough - due to post-nasal drainage - restart flonase 05/03/2018 Appointment: [facility]ly [facility]ega [facility]Ptel[facility] [phone] [facility] [place] (15 min) Moderate 05/03/2018 Patient Education: Patient Medication Summary Completed 05/03/2018 Patient Education: Hypertension Completed 05/03/2018 Patient Education: Diabetes Completed 05/03/2018 Appointment: Injection 04/26/2018 Patient Education: Patient Medication Summary Completed 04/26/2018 Appointment: Injection 04/12/2018 Patient Education: Patient Medication Summary Completed 04/12/2018 Appointment: Injection 03/30/2018 Patient Education: Patient Medication Summary Completed 03/30/2018 Appointment: Injection 03/16/2018 Patient Education: Patient Medication Summary Completed 03/16/2018 Referral: Car Pollard Dr. Completed 03/08/2018 Referral: Car Pollard with Mateo Maldonado Completed 03/05/2018 Appointment: Injection 03/02/2018 Patient Education: Patient Medication Summary Completed 03/02/2018 Visit Plan: Shoulder pain - suspect a tendon rupture or partial tear - referral to dr pollard for shoulder injections - pt is not interested in surgical intervention. 02/26/2018 Appointment: Yarely Vega WPtel: [facility] [place] (15 min) Moderate 02/26/2018 Patient Education: Patient Medication Summary Completed 02/26/2018 Care Plan: Referral Order SNOMED-CT : [id number] Pending 02/26/2018 Appointment: Injection 02/08/2018 Patient Education: Patient Medication Summary Completed 02/08/2018 Appointment: Injection 01/24/2018 Patient Education: Patient Medication Summary Completed 01/24/2018 Appointment: Injection 01/10/2018 Patient Education: Patient Medication Summary Completed 01/10/2018 Appointment: Injection 12/27/2017 Patient Education: Patient Medication Summary Completed 12/27/2017 Appointment: [facility]Ptel[facility] [phone] [facility] [place] (15 min) Moderate 12/26/2017 Visit Plan: Wacnxa-dbaizkjmq-rxtntook protonix-follow up with Dr Escobedo as scheduled Cough-recent bronchitis-symptoms improved-call if symptoms do not completely resolve 12/12/2017 Appointment: Janet Fam WPtel: [phone] [phone] (15 min) Moderate 12/12/2017 Patient Education: Patient Medication Summary Completed 12/12/2017 Visit Plan: Bronchitis - acute case of bronchitis identified. Pt has been given antibiotics, breathing treatments as appropriate, and pt has been instructed to call if symptoms are not improved, or if symptoms acutely worsen. Cough - rx for antibiotics as well as cough medication. 12/04/2017 Appointment: Yarely Vega WPtel: [phone] [facility] (15 min) Moderate 12/04/2017 Patient Education: [...] Fatigue/malaise -Pt was advsied to ask the Mental Health Program Specialist the following: ask the heart doctor if [...] becoming uncontrolled. 11/20/2017 Appointment: Yarely [facility]ega WPtel[facility] [phone] [facility] (15 min) Moderate 11/20/2017 Patient Education: Patient [...] any worse. 09/15/2017 Appointment: Janet Fam WPtel: [phone] [place] (15 min) Moderate 09/15/2017 Patient Education: Patient Medication Summary Completed 09/15/2017 Appointment: Yarely Vega WPtel: [facility]5 [facility] [place] (15 min) Moderate 09/11/2017 Visit Plan: Skin tear and Cellulitis - The patient was instructed in appropriate wound care. The patient was instructed to use the antibiotic ointment as per RX. The patient is to call for any change in symptoms, increase in size of the lesion, increase in pain, worsening redness, warmth, discharge. 09/07/2017 Appointment: Brianna Otoole WPtel: [facility]7 [facility] [place] (10 min) Simple 09/07/2017 Patient Education: Patient Medication Summary Completed 09/07/2017 Visit Plan: Lipoma - left ankle - talk to dr. barnes about possible surgery/laser for treatment of lipoma. Fatigue/malaise -Pt was advsied to ask the Mental Health Program Specialist the following: ask the heart doctor if there is an alternative to the amiodarone - you may be having side effects from the medication causing you to have pruritus (itching) and feeling like you have body aches, muscle aches, joint pain, fatigue, weight loss (decreased appetite), and pneumonia like symptoms. Congestion - claritin 10mg daily. 08/30/2017 Appointment: Yarely Vega WPtel: [facility] [place] [address] [place] (15 min) Moderate 08/30/2017 Patient Education: Patient Medication Summary Completed 08/30/2017 Appointment: Injection 08/24/2017 Appointment: Yarely Vega WPtel: [phone] [facility] (15 min) Moderate 08/24/2017 Patient Education: Patient Medication Summary Completed 08/24/2017 Visit Plan: Hypothyroidism - pt with chronic hypothyroidism, continue [...] mucinex 07/06/2017 Appointment: [facility]ly [facility] WPtel: [phone] [facility] (15 min) Moderate 07/06/2017 Patient Education: Patient [...] spray. 06/20/2017 Appointment: [phone] (15 min) Moderate 06/20/2017 Patient Education: Patient [...] Bucky 06/05/2017 Appointment: Brianna Otoole WPtel[facility] [phone] [facility] [facility] - Annual Wellness Visit 06/05/2017 Patient Education: [...] wither q 3 months or q 6 m [facility] based on previous levels of control. 05/25/2017 Appointment: Yarely Vega WPtel: [facility] (15 min) Moderate 05/25/2017 Patient Education: [...] previous levels of control. Costochondritis - recommended asp ercreme to chest wall. Fatigue - pt to discuss with Mental Health Program Specialist about the possibility of amiodarone causing her fatigue/malaise. 03/23/2017 Appointment: Yarely Vega WPtel: [phone] [facility] (15 min) Moderate 03/23/2017 Patient Education: Patient [...] twice daily. 01/23/2017 Appointment: Yarely Vega WPtel: [address] [place], [place] [address] (15 min) Moderate 01/23/2017 Patient Education: Patient [...] improve. 11/02/2016 Appointment: Bri[facility] Otoole WPtel[facility] [phone] [facility] (15 min) Moderate 11/02/2016 Patient Education: [...] months based on previous levels of control. A bdominal pain - continue with carafate 09/29/2016 Appointment: Yarely Vega WPtel: [phone] [facility] [place] (15 min) Moderate 09/29/2016 Patient Education: Patient Medication Summary Completed 09/29/2016 Appointment: Yarely Vega WPtel: [phone] [facility] [place] (15 min) Moderate 09/27/2016 Appointment: Yarely Vega WPtel: [facility] [place] (15 min) Moderate 09/20/2016 Appointment: Yarely Vega WPtel: [facility] [place] (15 min) Moderate 09/20/2016 Patient Education: Patient Medication Summary Completed 09/06/2016 Appointment: Yarely Vega WPtel: [facility] [place] (15 min) Moderate 08/30/2016 Appointment: [...] acute concerns. 07/26/2016 Appointment: Yarely Vega WPtel: [facility] (15 min) Moderate 07/26/2016 Patient Education: [...] Bravo Patient informed. Referral info faxed Completed 06/09/2016 Patient Education: Patient Medication Summary Completed 06/09/2016 [...] care surrogate. 05/30/2016 Appointment: Bri[facility] Otoole WPtel[facility] [phone] [facility] [facility] - Annual Wellness Visit 05/30/2016 [...] months based on previous levels of control. h eadaches - take topamax at bedtime 05/25/2016 Appointment: Yarely Vega WPtel: [address] [facility] (15 min) Moderate 05/25/2016 Patient Education: Patient Medication Summary Completed 05/25/2016 Patient Education: Obesity Completed 05/25/2016 Care Plan: Referral Order SNOMED-CT : [id number] Pending 05/25/2016 Appointment: Injection 05/10/2016 Patient Education: Patient Medication Summary Completed 05/10/2016 Appointment: Injection 04/26/2016 Patient Education: Patient Medication Summary Completed 04/26/2016 Appointment: Injection 04/11/2016 Patient Education: Patient Medication Summary Completed 04/11/2016 Appointment: Injection 03/31/2016 Patient Education: Patient Medication Summary Completed 03/31/2016 Patient Education: Patient Medication Summary Completed 03/22/2016 [facility] Plan[facility] Pending 03/22/2016 Appointment: Injection 03/15/2016 Patient Education: [...] any concerns. 02/25/2016 Appointment: Brianna Otoole WPtel: [facility] (15 min) Moderate 02/25/2016 Patient Education: [...] months based on previous levels of control. S leep related nocturnal hypoxemia - disturbed sleep - lack of REM sleep based on the patients recent sleep study - recommended [place] patient eval of pt - nocturnal [...] months based on previous levels of control. S leep related nocturnal hypoxemia - disturbed sleep - lack of REM sleep based on the patients recent sleep study - recommended [place] home patient eval of pt - nocturnal [...] placement sooner rather than later. 10/12/2015 Appointment: Gary Yarely WPtel: [phone] [facility] (15 min) Moderate 10/12/2015 Patient Education: [...] Summary Completed 08/17/2015 Appointment: Yarely Vega WPtel: [phone] [facility] [place] (15 min) Moderate 08/11/2015 Appointment: Injection 08/06/2015 [...] x 2 05/19/2015 Appointment: Yarely Vega WPtel: [facility] (30 min) [facility] 05/19/2015 Patient Education: Patient Medication Summary Completed [...] directed, and understands the consequences of over-medication. 05/12/2015 Patient Education: Patient Medication Summary Completed [...] prn alprazolam. 01/13/2015 Appointment: Yarely Vega WPtel: [facility] (15 min) Moderate 01/13/2015 Patient Education: Patient Medication Summary Completed 01/13/2015 Patient Education: Hypertension Completed 01/13/2015 Visit Plan: b12 injection 01/08/2015 Appointment: Injection 01/08/2015 Patient Education: Patient Medication Summary Completed 01/08/2015 Appointment: Injection 12/25/2014 Patient Education: Patient Medication Summary Completed 12/25/2014 Visit Plan: Hypothyroidism - pt with chronic hypothyroidism, continue [...] as previously directed, continue with regular FSBS mon itoring to assure continued control of diabetes. Pt [...] current medications. 12/16/2014 Appointment: Janet [facility]Ptel: [phone] [facility] [place] ([place]) New Patient 12/16/2014 Patient Education: Patient Medication Summary Completed 12/16/2014 Appointment: Injection 12/10/2014 Patient Education: Patient Medication Summary Completed 12/10/2014 Appointment: Injection 11/26/2014 Patient Education: Patient Medication Summary Completed 11/26/2014 Patient Education: Patient Medication Summary Completed 11/12/2014 Appointment: Nurse Visit 10/28/2014 Patient Education: Patient Medication Summary Completed 10/28/2014 Appointment: Injection 10/14/2014 Referral: Gnearo Bravo Referral Appointment Requested Referral: Car Pollard Referral Appointment Requested Instructions Comment . b12 [...] if symptoms return, or with any concerns. excedrin migraine for as needed use for headaches . Hypertension - well controlled - continue with current medications, continue with no added salt diet. Pt has been encouraged to exercise daily. The pt has been advised to call the office if there are any acute concerns about change in blood pressure readings at home. Diabetes Mellitus - controlled - per recent [...] readings are starting to become less controlled. Chronic cough - due to post-nasal drainage - restart flonase . Large Hiatal Hernia - discussed with patient and her daughters - the Hiatal hernia is known and she is not a surgical candidate - I have recommended that with the CT scan findings - we need to make sure that this is not a thickening of the esophagus which could potentially be medina's esophagus - I have therefore recommended a referral to dr. escobedo for scope and the office will call her DTR benji ([id number]) - with appt information Hypertension - well controlled - continue with [...] directed otherwise. Check labs at regular intervals q 3 months or q 6 months based on previous levels of control. Prolonged time spent with patient and her Daughters in discussion of the above recommendations - pt was arguing quite voraciously with her daughters about her illness and how she feels all of the time with her cough and mucus in her throat/neck. - total time was 45 minutes . Atrial Fibrillation - pt on chronic [...] Fatigue/malaise -Pt was advsied to ask the Mental Health Program Specialist the following: ask the heart doctor if [...] change in blood pressure readings at home. Diabetes Mellitus - controlled - per recent [...] directed otherwise. Check labs at regular intervals q 3 months or q 6 months based on previous levels of control. . Hypertension - well controlled - continue [...] things that Faiza had said - with aFiza denying making the statements that were attributed to her by her daughter. I reminded Faiza that her daughter was there to help and was trying to be supportive. After clinic, with Faiza's permission, I discussed her case with Faiza's daughter who had left [facility]. She is interested in looking at assisted living facilities for her mom as Faiza's family is for assisted living placement sooner rather than later. . Medicare Exam - today we discussed [...] DOPA paperwork for health care surrogate. . Prhuyu-ihbllwaet-njoeybub protonix-follow up with Dr Escobedo as scheduled Cough-recent bronchitis-symptoms improved-call if symptoms do not completely resolve B12 and steroid shot today start doxycycline (antibiotic) today if not getting better will give you a steroid pill (prednisone) will send breathing treatments for you to restart. Bronchitis - acute case of bronchitis identified. Pt has been given antibiotics, breathing treatments as appropriate, and pt has been instructed to call if symptoms are not improved, or if symptoms acutely worsen. . Skin tear and Cellulitis - The patient was instructed in appropriate wound care. The patient was instructed to use the antibiotic ointment as per RX. The patient is to call for any change in symptoms, increase in size of the lesion, increase in pain, worsening redness, warmth, discharge. melatonin can take 3mg to 10mg at [...] Anxiety - continue with prn alprazolam. . Low back pain- ongoing - will [...] pain is worsening or does not improve. Schedule thyroid ultrasound Add T3 and digoxin [...] situational exposure. No change in current medications. increase norvasc from 5mg daily to 10mg [...] pt is to call for acute concerns. change priolosec to bedtime to see if [...] - cryotherapy of skin lesions x 2 ask the heart doctor if there is [...] Fatigue/malaise -Pt was advsied to ask the Mental Health Program Specialist the following: ask the heart doctor if there is an alternative to the amiodarone - you may be having side effects from the medication causing you to have pruritus (itching) and feeling like you have body aches, muscle aches, joint pain, fatigue, weight loss (decreased appetite), and pneumonia like symptoms. Congestion - claritin 10mg daily. use dry eye drops in the morning and at bedtime. restart the meloxicam . Shoulder pain - suspect a tendon rupture or partial tear - referral to dr pollard for shoulder injections - pt is not interested in surgical intervention. CLARITIN FLONASE KENALOG INJECTION TODAY CALL IF SYMPTOMS DO NOT RESOLVE . URI - Pt advised to increase fluids, vitamin C. Discussed natural and expected course of this diagnosis and need to alert me if symptoms do not follow expected course, or if any worse. Reminder - please take the TOPAMAX daily [...] wall. Fatigue - pt to discuss with Mental Health Program Specialist about the possibility of amiodarone causing her fatigue/malaise. loratadine - generic for CLARITIN - take [...] in the nasal steroid allergy spray. . Hypertension - well controlled - continue [...] the patients recent sleep study - recommended [place] [facility] patient eval of pt - nocturnal [...] the patients recent sleep study - recommended [place] [facility] patient eval of pt - nocturnal oxygen study - will order - if positive oxygen concentrator with humidification. Power Pudding: equal parts of prune juice, [...] continue with current treatment plan and mucinex Stop Keflex Start Doxycycline - probiotic while [...]
--- OUTSIDE RECORDS SUMMARY | 2018-12-05 15:12 | XMS REPORT | CCD ---
Author Author [facility] Organization [facility] Address [address] [place] [address] Phone Care Team Providers Care Risk Control Analyst Name Role Phone PP Unavailable CCM Unavailable Summary Purpose Interface Exchange Insurance Providers Payer name Policy type / Coverage type Covered constitution party ID Effective Begin Date Effective End Date WPS Medicare Part B Medicare Part B [id number] Unknown [employer] Life [employer] Medicare Part B [id number] Unknown [employer] in [place] Medicare Part B [id number] Unknown Family history Brother Diagnosis Age At Onset Heart Attack Unknown Mother Diagnosis Age At Onset Hypertension Unknown kidney disease Unknown Stroke Unknown Father Diagnosis Age At Onset Arthritis Unknown Social History Social History Element Codes Description Effective Dates Employment Unknown Retired worked at [employer] 11/20/2017 Marital status Unknown Single 12/16/[address]: 3613381 Former smoker 12/16/[address]: 955151734 Never drinks alcohol 12/16/2014 Allergies, Adverse Reactions, Alerts Substance Reaction Codes Entered Date Inactivated Date Status CODEINE RxNorm: 2670 05/25/2016 No Inactive Date Active ciprofloxacin RxNorm: 96843 12/16/2014 No Inactive Date Active MORPHINE SULFATE RxNorm: 7052 12/16/2014 No Inactive Date Active Penicillin Unknown 11/10/2015 No Inactive Date Active Past Medical History Illness Codes Condition Status Onset Date Resolved Date Vitamin B12 deficiency anemia, unspecified ICD-9: 281.1 [...] ICD-9: 281.0 ICD-10: D51.0 Active 05/25/2017 Unknown Other vitamin B12 deficiency anemias ICD-9: [...] Effective Dates Condition Status Vitamin B12 deficiency anemia, unspecified ICD-9: 281.1 [...] deficiency ICD-9: 281.0 ICD-10: D51.0 05/25/2017 Active Other vitamin B12 deficiency anemias ICD-9: [...] (vit B-12) 1,000 mcg/mL injection solution RxNorm: 842296 Milliliter(s) Inj 11/08/2018 11/08/2018 Inactive cyanocobalamin (vit B-12) 1,000 mcg/mL injection solution RxNorm: 826089 Milliliter(s) Inj 10/23/2018 10/23/2018 Inactive cyanocobalamin (vit B-12) 1,000 mcg/mL injection solution RxNorm: 285780 Milliliter(s) Inj 10/10/2018 10/10/2018 Inactive Flonase Allergy Relief 50 mcg/actuation nasal spray,suspension RxNorm: 4743425 [place] 1 [place] NASAL BID 10/08/2018 04/05/2019 Active cyanocobalamin (vit B-12) 1,000 mcg/mL injection solution RxNorm: 533355 Milliliter(s) Inj 09/27/2018 09/27/2018 Inactive levothyroxine 137 mcg tablet RxNorm: 050207 1 Tablet(s) PO daily 09/12/2018 03/10/2019 Active levothyroxine 137 mcg tablet RxNorm: 732344 1 Tablet(s) PO daily 09/12/2018 09/11/2018 Inactive cyanocobalamin (vit B-12) 1,000 mcg/mL injection solution RxNorm: 523272 Milliliter(s) Inj 09/11/2018 09/11/2018 Inactive levothyroxine 125 mcg tablet RxNorm: 662806 TAKE 1 TABLET BY MOUTH EVERY DAY 09/10/2018 09/11/2018 Inactive Generic For:SYNTHROID 125MCG TAB 09/10/2018 12:06:52 PM cyanocobalamin (vit B-12) 1,000 mcg/mL injection solution RxNorm: 273817 Milliliter(s) Inj 08/29/2018 08/29/2018 Inactive alprazolam 0.25 mg tablet RxNorm: 602308 1 Tablet(s) PO BID 08/21/2018 02/16/2019 Active hydrocodone 5 mg-acetaminophen 325 mg tablet RxNorm: 165247 1-2 Tablet(s) PO Q6 as needed for pain to use for severe pain only 08/20/2018 09/18/2018 Inactive albuterol sulfate 2.5 mg/3 mL (0.083 %) solution for nebulization RxNorm: 360161 3 Milliliter(s) INH Q6 PRN 08/15/2018 No Stop Date Active Aricept 10 mg tablet RxNorm: 658503 1 Tablet(s) PO daily 08/15/2018 08/09/2019 Active liothyronine 5 mcg tablet RxNorm: 795573 Tablet(s) TAKE 1 TABLET BY MOUTH TWICE DAILY 08/15/2018 02/10/2019 Active cyanocobalamin (vit B-12) 1,000 mcg/mL injection solution RxNorm: 006742 Milliliter(s) Inj 08/15/2018 08/15/2018 Inactive Kenalog 40 mg/mL suspension for injection RxNorm: 7768106 Milliliter(s) Inj 08/15/2018 08/15/2018 Inactive doxycycline hyclate 100 mg capsule RxNorm: 8705775 1 Capsule(s) PO BID 08/15/2018 08/24/2018 Inactive cyanocobalamin (vit B-12) 1,000 mcg/mL injection solution RxNorm: 301669 Milliliter(s) Inj 08/01/2018 08/01/2018 Inactive cyanocobalamin (vit B-12) 1,000 mcg/mL injection solution RxNorm: 347187 Milliliter(s) Inj 07/19/2018 07/19/2018 Inactive hydrocodone 5 mg-acetaminophen 325 mg tablet RxNorm: 083282 1-2 Tablet(s) PO Q6 as needed for pain 07/18/2018 08/15/2018 Inactive betamethasone valerate 0.1 % topical ointment RxNorm: 056628 1 TOP BID 07/04/2018 07/03/2018 Inactive applying to skin under nose x 10 days cyanocobalamin (vit B-12) 1,000 mcg/mL injection solution RxNorm: 999216 Milliliter(s) Inj 07/04/2018 07/04/2018 Inactive betamethasone valerate 0.1 % topical ointment RxNorm: 582480 1 TOP BID 07/04/2018 07/13/2018 Inactive applying to skin under nose x 10 days Aricept 10 mg tablet RxNorm: 883839 Tablet(s) 1 Tablet(s) PO daily 06/25/2018 08/14/2018 Inactive cyanocobalamin (vit B-12) 1,000 mcg/mL injection solution RxNorm: 939229 Milliliter(s) Inj 06/20/2018 06/20/2018 Inactive hydrocodone 5 mg-acetaminophen 325 mg tablet RxNorm: 117242 1-2 Tablet(s) PO Q6 as needed for pain 06/20/2018 07/17/2018 Inactive Flonase Allergy Relief 50 mcg/actuation nasal spray,suspension RxNorm: 8892706 [place] 1 [place] NASAL BID 06/20/2018 10/07/2018 Inactive cyanocobalamin (vit B-12) 1,000 mcg/mL injection solution RxNorm: 619679 Milliliter(s) Inj 06/06/2018 06/06/2018 Inactive alprazolam 0.25 mg tablet RxNorm: 442777 1 Tablet(s) PO BID 05/25/2018 08/21/2018 Inactive hydrocodone 5 mg-acetaminophen 325 mg tablet RxNorm: 941635 1-2 Tablet(s) PO Q6 as needed for pain 05/24/2018 06/19/2018 Inactive cyanocobalamin (vit B-12) 1,000 mcg/mL injection solution RxNorm: 233953 Milliliter(s) Inj 05/24/2018 05/24/2018 Inactive cyanocobalamin (vit B-12) 1,000 mcg/mL injection solution RxNorm: 770789 Milliliter(s) Inj 05/09/2018 05/09/2018 Inactive Claritin 10 mg tablet RxNorm: 378174 TAKE 1 TABLET BY MOUTH ONCE DAILY 05/08/2018 05/02/2019 Active Generic For:CLARITIN 10MG 05/07/2018 9:13:47 AM cyanocobalamin (vit B-12) 1,000 mcg/mL injection solution RxNorm: 142666 INJECT ONE 1 ML EVERY TWO WEEKS 05/03/2018 04/03/2019 Active 05/03/2018 9:13:42 AM Mobic 15 mg tablet RxNorm: 817715 Tablet(s) 1 Tablet(s) PO daily 04/26/2018 04/20/2019 Active buspirone 15 mg tablet RxNorm: 787397 Tablet(s) TAKE 1 TABLET BY MOUTH TWICE DAILY 04/26/2018 04/20/2019 Active Generic For:BUSPAR 15MG 05/31/2017 9:19:20 AM Norvasc 5 mg tablet RxNorm: 184353 Tablet(s) 1 Tablet(s) PO daily 04/26/2018 04/20/2019 Active cyanocobalamin (vit B-12) 1,000 mcg/mL injection solution RxNorm: 635862 Milliliter(s) Inj 04/26/2018 04/26/2018 Inactive hydrocodone 5 mg-acetaminophen 325 mg tablet RxNorm: 771715 1-2 Tablet(s) PO Q6 as needed for pain 04/25/2018 05/23/2018 Inactive cyanocobalamin (vit B-12) 1,000 mcg/mL injection solution RxNorm: 488564 Milliliter(s) Inj 04/12/2018 04/12/2018 Inactive Topamax 25 mg tablet RxNorm: 761189 1 Tablet(s) PO BID 04/09/2018 05/02/2018 Inactive Generic For:TOPAMAX 25MG 12/06/2016 9:15:13 AM Zoloft 50 mg tablet RxNorm: 523590 TAKE 1 TABLET BY MOUTH ONCE DAILY 04/04/2018 12/29/2018 Active Generic For:ZOLOFT 50MG 04/04/2018 9:13:25 AM cyanocobalamin (vit B-12) 1,000 mcg/mL injection solution RxNorm: 939345 Milliliter(s) Inj 03/30/2018 03/30/2018 Inactive levothyroxine 125 mcg tablet RxNorm: 246512 TAKE 1 TABLET BY MOUTH EVERY DAY 03/26/2018 09/09/2018 Inactive Generic For:SYNTHROID 125MCG TAB 03/26/2018 9:15:59 AM liothyronine 5 mcg tablet RxNorm: 515989 TAKE 1 TABLET BY MOUTH TWICE DAILY 03/26/2018 08/14/2018 Inactive Generic For:CYTOMEL 5MCG 03/26/2018 9:15:54 AM hydrocodone 5 mg-acetaminophen 325 mg tablet RxNorm: 023213 1-2 Tablet(s) PO Q6 as needed for pain 03/19/2018 04/17/2018 Inactive cyanocobalamin (vit B-12) 1,000 mcg/mL injection solution RxNorm: 709273 Milliliter(s) Inj 03/16/2018 03/16/2018 Inactive Flonase Allergy Relief 50 mcg/actuation nasal spray,suspension RxNorm: 7668556 1 [place] NASAL BID 03/05/2018 06/19/2018 Inactive cyanocobalamin (vit B-12) 1,000 mcg/mL injection solution RxNorm: 874410 Milliliter(s) Inj 03/02/2018 03/02/2018 Inactive alprazolam 0.25 mg tablet RxNorm: 609642 1 Tablet(s) PO BID 02/28/2018 05/27/2018 Inactive cyanocobalamin (vit B-12) 1,000 mcg/mL injection solution RxNorm: 479098 Milliliter(s) Inj 02/08/2018 02/08/2018 Inactive cyanocobalamin (vit B-12) 1,000 mcg/mL injection solution RxNorm: 904820 Milliliter(s) Inj 01/24/2018 01/24/2018 Inactive albuterol sulfate 2.5 mg/3 mL (0.083 %) solution for nebulization RxNorm: 186807 3 Milliliter(s) INH Q6 PRN 01/24/2018 05/02/2018 Inactive Claritin 10 mg tablet RxNorm: 548302 1 Tablet(s) PO daily 01/15/2018 05/07/2018 Inactive cyanocobalamin (vit B-12) 1,000 mcg/mL injection solution RxNorm: 326711 Milliliter(s) Inj 01/10/2018 01/10/2018 Inactive hydrocodone 5 mg-acetaminophen 325 mg tablet RxNorm: 910935 1-2 Tablet(s) PO Q6 as needed for pain 01/09/2018 02/07/2018 Inactive cyanocobalamin (vit B-12) 1,000 mcg/mL injection solution RxNorm: 157856 Milliliter(s) Inj 12/27/2017 12/27/2017 Inactive cyanocobalamin (vit B-12) 1,000 mcg/mL injection solution RxNorm: 672047 1 Milliliter(s) Inj 12/12/2017 12/12/2017 Inactive Zofran ODT 4 mg disintegrating tablet RxNorm: 147488 1 Tablet(s) PO TID as needed 12/08/2017 12/09/2017 Inactive hydrocodone 2.5 mg-guaifenesin 200 mg/5 mL oral solution RxNorm: 144235 5 Milliliter(s) PO 12/04/2017 05/06/2018 Inactive doxycycline hyclate 100 mg capsule RxNorm: 7774856 1 Capsule(s) PO BID 12/04/2017 12/13/2017 Inactive cyanocobalamin (vit B-12) 1,000 mcg/mL injection solution RxNorm: 942969 Milliliter(s) Inj 12/01/2017 12/01/2017 Inactive Flonase Allergy Relief 50 mcg/actuation nasal spray,suspension RxNorm: 9259478 1 [place] NASAL BID 11/20/2017 2018 Inactive cyanocobalamin (vit B-12) 1,000 mcg/mL injection solution RxNorm: 206162 1 Milliliter(s) Inj 11/17/2017 11/17/2017 Inactive hydrocodone 5 mg-acetaminophen 325 mg tablet RxNorm: 687598 1-2 Tablet(s) PO Q6 as needed for pain 11/16/2017 12/15/2017 Inactive cyanocobalamin (vit B-12) 1,000 mcg/mL injection solution RxNorm: 742668 1 Milliliter(s) Inj 11/02/2017 11/02/2017 Inactive hydrocodone 5 mg-acetaminophen 325 mg tablet RxNorm: 553333 1-2 Tablet(s) PO Q6 as needed for pain 10/25/2017 11/15/2017 Inactive Claritin 10 mg tablet RxNorm: 796395 1 Tablet(s) PO daily 10/25/2017 11/19/2017 Inactive albuterol sulfate 2.5 mg/3 mL (0.083 %) solution for nebulization RxNorm: 987758 3 Milliliter(s) INH Q6 PRN 10/25/2017 01/23/2018 Inactive Claritin 10 mg tablet RxNorm: 219195 1 Tablet(s) PO daily 10/25/2017 10/24/2017 Inactive cyanocobalamin (vit B-12) 1,000 mcg/mL injection solution RxNorm: 791831 1 Milliliter(s) Inj 10/20/2017 10/20/2017 Inactive Zoloft 50 mg tablet RxNorm: 048299 TAKE 1 TABLET BY MOUTH ONCE DAILY 10/13/2017 04/03/2018 Inactive Generic For:ZOLOFT 50MG 10/13/2017 8:59:44 AM cyanocobalamin (vit B-12) 1,000 mcg/mL injection solution RxNorm: 687652 Milliliter(s) Inj 10/06/2017 10/06/2017 Inactive liothyronine 5 mcg tablet RxNorm: 057667 TAKE 1 TABLET BY MOUTH TWICE DAILY 10/03/2017 03/25/2018 Inactive Generic For:CYTOMEL 5MCG 10/03/2017 9:13:38 AM cyanocobalamin (vit B-12) 1,000 mcg/mL injection solution RxNorm: 649695 Milliliter(s) Inj 09/21/2017 09/21/2017 Inactive albuterol sulfate 2.5 mg/3 mL (0.083 %) solution for nebulization RxNorm: 289628 3 Milliliter(s) INH Q6 PRN 09/21/2017 10/24/2017 Inactive hydrocodone 5 mg-acetaminophen 325 mg tablet RxNorm: 246613 1-2 Tablet(s) PO Q6 as needed for pain 09/21/2017 10/20/2017 Inactive Kenalog 40 mg/mL suspension for injection RxNorm: 3032424 Milliliter(s) Inj 09/15/2017 09/15/2017 Inactive Keflex 500 mg capsule RxNorm: 577671 1 Capsule(s) PO TID 09/07/2017 09/16/2017 Inactive Please deliver to patient cyanocobalamin (vit B-12) 1,000 mcg/mL injection solution RxNorm: 063030 Milliliter(s) Inj 09/07/2017 09/07/2017 Inactive alprazolam 0.25 mg tablet RxNorm: 762632 1 Tablet(s) PO BID 09/06/2017 02/27/2018 Inactive Aricept 10 mg tablet RxNorm: 085726 1 Tablet(s) PO daily 09/06/2017 06/24/2018 Inactive hydrocodone 5 mg-acetaminophen 325 mg tablet RxNorm: 529642 1-2 Tablet(s) PO Q6 as needed for pain 08/24/2017 09/20/2017 Inactive cyanocobalamin (vit B-12) 1,000 mcg/mL injection solution RxNorm: 047727 Milliliter(s) Inj 08/24/2017 08/24/2017 Inactive Norvasc 5 mg tablet RxNorm: 749756 1 Tablet(s) PO daily 08/18/2017 04/25/2018 Inactive nystatin 100,000 unit/gram topical powder RxNorm: 390020 1 Gram(s) TOP QID 08/17/2017 08/26/2017 Inactive hydrocodone 5 mg-acetaminophen 325 mg tablet RxNorm: 966269 1-2 Tablet(s) PO Q6 as needed for pain 07/25/2017 08/23/2017 Inactive Tamiflu 75 mg capsule RxNorm: 343729 1 Capsule(s) PO BID 07/24/2017 12/11/2017 Inactive nystatin 100,000 unit/gram topical powder RxNorm: 206061 1 Gram(s) TOP QID 07/14/2017 07/22/2017 Inactive levothyroxine 125 mcg tablet RxNorm: 272268 Tablet(s) 1 Tablet(s) PO daily 07/10/2017 01/05/2018 Inactive nystatin 100,000 unit/gram topical powder RxNorm: 763507 1 Gram(s) TOP QID 07/06/2017 07/13/2017 Inactive cyanocobalamin (vit B-12) 1,000 mcg/mL injection solution RxNorm: 764406 Milliliter(s) Inj 07/06/2017 07/06/2017 Inactive Kenalog 40 mg/mL suspension for injection RxNorm: 3310238 1 Milliliter(s) Inj 06/20/2017 06/20/2017 Inactive doxycycline hyclate 100 mg capsule RxNorm: 7945151 1 Capsule(s) PO BID 06/20/2017 06/26/2017 Inactive cyanocobalamin (vit B-12) 1,000 mcg/mL injection solution RxNorm: 983477 Milliliter(s) Inj 06/20/2017 06/20/2017 Inactive Keflex 500 mg capsule RxNorm: 865722 1 Capsule(s) PO TID 06/14/2017 06/23/2017 Inactive Please deliver to patient Mobic 15 mg tablet RxNorm: 774041 1 Tablet(s) PO daily 06/14/2017 04/25/2018 Inactive cyanocobalamin (vit B-12) 1,000 mcg/mL injection solution RxNorm: 003529 Milliliter(s) Inj 06/05/2017 06/05/2017 Inactive buspirone 15 mg tablet RxNorm: 694987 TAKE 1 TABLET BY MOUTH TWICE DAILY 05/31/2017 04/25/2018 Inactive Generic For:BUSPAR 15MG 05/31/2017 9:19:20 AM cyanocobalamin (vit B-12) 1,000 mcg/mL injection solution RxNorm: 722442 Milliliter(s) Inj 05/25/2017 05/25/2017 Inactive hydrocodone 5 mg-acetaminophen 325 mg tablet RxNorm: 450224 1-2 Tablet(s) PO Q6 as needed for pain 05/25/2017 06/23/2017 Inactive amiodarone 200 mg tablet RxNorm: 995792 1/2 Tablet(s) PO daily 05/22/2017 No Stop Date Active cardiology decreased to 100mg daily cyanocobalamin (vit B-12) 1,000 mcg/mL injection solution RxNorm: 918742 Milliliter(s) Inj 05/16/2017 05/16/2017 Inactive Zofran ODT 4 mg disintegrating tablet RxNorm: 441466 1 Tablet(s) PO TID as needed 05/03/2017 05/04/2017 Inactive hydrocodone 5 mg-acetaminophen 325 mg tablet RxNorm: 511979 1-2 Tablet(s) PO Q6 as needed for pain 05/01/2017 05/05/2017 Inactive cyanocobalamin (vit B-12) 1,000 mcg/mL injection solution RxNorm: 128635 1 Milliliter(s) Inj 05/01/2017 05/01/2017 Inactive cyanocobalamin (vit B-12) 1,000 mcg/mL injection solution RxNorm: 331906 INJECT ONE 1 ML EVERY TWO WEEKS 04/26/2017 12/04/2018 Active 04/26/2017 9:08:52 AM Zoloft 50 mg tablet RxNorm: 613643 Tablet(s) TAKE 1 TABLET BY MOUTH DAILY 04/25/2017 10/12/2017 Inactive Generic For:ZOLOFT 50MG cyanocobalamin (vit B-12) 1,000 mcg/mL injection solution RxNorm: 075639 Milliliter(s) Inj 04/18/2017 04/18/2017 Inactive liothyronine 5 mcg tablet RxNorm: 499347 1 Tablet(s) PO BID 04/13/2017 10/02/2017 Inactive cyanocobalamin (vit B-12) 1,000 mcg/mL injection solution RxNorm: 878148 Milliliter(s) Inj 04/06/2017 04/06/2017 Inactive hydrocodone 5 mg-acetaminophen 325 mg tablet RxNorm: 566223 1-2 Tablet(s) PO Q6 as needed for pain 04/06/2017 04/10/2017 Inactive cyanocobalamin (vit B-12) 1,000 mcg/mL injection solution RxNorm: 980523 Milliliter(s) Inj 03/22/2017 03/22/2017 Inactive alprazolam 0.25 mg tablet RxNorm: 067402 1 Tablet(s) PO BID 03/17/2017 12/11/2017 Inactive alprazolam 0.25 mg tablet RxNorm: 037449 1 Tablet(s) PO BID 03/16/2017 09/05/2017 Inactive hydrocodone 5 mg-acetaminophen 325 mg tablet RxNorm: 406662 1-2 Tablet(s) PO Q6 as needed for pain 03/09/2017 03/13/2017 Inactive cyanocobalamin (vit B-12) 1,000 mcg/mL injection solution RxNorm: 597850 Milliliter(s) Inj 03/09/2017 03/09/2017 Inactive cyanocobalamin (vit B-12) 1,000 mcg/mL injection solution RxNorm: 665429 Milliliter(s) Inj 02/23/2017 02/23/2017 Inactive cyanocobalamin (vit B-12) 1,000 mcg/mL injection solution RxNorm: 161581 Milliliter(s) Inj 02/09/2017 02/09/2017 Inactive hydrocodone 5 mg-acetaminophen 325 mg tablet RxNorm: 019118 1-2 Tablet(s) PO Q6 as needed for pain 02/08/2017 02/12/2017 Inactive Topamax 25 mg tablet RxNorm: 396467 1 Tablet(s) PO BID 01/23/2017 05/22/2017 Inactive Generic For:TOPAMAX 25MG 12/06/2016 9:15:13 AM cyanocobalamin (vit B-12) 1,000 mcg/mL injection solution RxNorm: 628161 Milliliter(s) Inj 01/23/2017 01/23/2017 Inactive cyanocobalamin (vit B-12) 1,000 mcg/mL injection solution RxNorm: 604384 Milliliter(s) Inj 01/10/2017 01/10/2017 Inactive hydrocodone 5 mg-acetaminophen 325 mg tablet RxNorm: 196503 1-2 Tablet(s) PO Q6 as needed for pain 01/09/2017 01/13/2017 Inactive cyanocobalamin (vit B-12) 1,000 mcg/mL injection solution RxNorm: 497476 1 Milliliter(s) Inj 12/28/2016 12/28/2016 Inactive cyanocobalamin (vit B-12) 1,000 mcg/mL injection solution RxNorm: 283046 Milliliter(s) Inj 12/14/2016 12/14/2016 Inactive buspirone 15 mg tablet RxNorm: 754150 1 Tablet(s) PO BID 12/12/2016 05/30/2017 Inactive hydrocodone 5 mg-acetaminophen 325 mg tablet RxNorm: 581278 1-2 Tablet(s) PO Q6 as needed for pain 12/08/2016 12/12/2016 Inactive Topamax 25 mg tablet RxNorm: 626137 TAKE 1 TABLET BY MOUTH EVERY DAY AT BEDTIME 12/06/2016 01/22/2017 Inactive Generic For:TOPAMAX 25MG 12/06/2016 9:15:13 AM Lac-Hydrin Five 5 % lotion RxNorm: 605948 1 Gram(s) TOP daily 12/02/2016 05/02/2018 Inactive cyanocobalamin (vit B-12) 1,000 mcg/mL injection solution RxNorm: 390749 Milliliter(s) Inj 11/24/2016 11/24/2016 Inactive Ceftin 500 mg tablet RxNorm: 257551 1 Tablet(s) PO BID 11/11/2016 06/13/2017 Inactive Cipro 500 mg tablet RxNorm: 437002 1 Tablet(s) PO BID 11/11/2016 11/10/2016 Inactive Cipro 500 mg tablet RxNorm: 008835 1 Tablet(s) PO BID 11/11/2016 11/11/2016 Inactive cyanocobalamin (vit B-12) 1,000 mcg/mL injection solution RxNorm: 880151 1 Milliliter(s) Inj 11/07/2016 11/07/2016 Inactive hydrocodone 5 mg-acetaminophen 325 mg tablet RxNorm: 832271 1-2 Tablet(s) PO Q6 as needed for pain 11/02/2016 11/06/2016 Inactive cyanocobalamin (vit B-12) 1,000 mcg/mL injection solution RxNorm: 549889 Milliliter(s) Inj 10/24/2016 10/24/2016 Inactive levothyroxine 125 mcg tablet RxNorm: 820666 Tablet(s) 1 Tablet(s) PO daily 10/24/2016 04/21/2017 Inactive liothyronine 5 mcg tablet RxNorm: 044224 1 Tablet(s) PO BID 10/24/2016 04/12/2017 Inactive hydrocodone 5 mg-acetaminophen 325 mg tablet RxNorm: 925661 1-2 Tablet(s) PO Q6 as needed for pain 10/17/2016 10/21/2016 Inactive Keflex 500 mg capsule RxNorm: 446699 1 Capsule(s) PO TID 10/07/2016 10/06/2016 Inactive Keflex 500 mg capsule RxNorm: 138120 1 Capsule(s) PO TID 10/07/2016 10/16/2016 Inactive Please deliver to patient cyanocobalamin (vit B-12) 1,000 mcg/mL injection solution RxNorm: 480264 1 Milliliter(s) Inj 09/29/2016 09/29/2016 Inactive alprazolam 0.25 mg tablet RxNorm: 848663 1 Tablet(s) PO BID 09/20/2016 03/16/2017 Inactive Cozaar 100 mg tablet RxNorm: 202122 1 Tablet(s) PO daily 09/14/2016 No Stop Date Active metoprolol tartrate 50 mg tablet RxNorm: 659787 1/2 Tablet(s) PO BID 09/14/2016 12/12/2016 Inactive Zoloft 50 mg tablet RxNorm: 113962 Tablet(s) TAKE 1 TABLET BY MOUTH DAILY 09/14/2016 03/12/2017 Inactive Generic For:ZOLOFT 50MG liothyronine 5 mcg tablet RxNorm: 251293 1 Tablet(s) PO BID 09/14/2016 10/23/2016 Inactive Calmoseptine 0.44 %-20.6 % topical ointment RxNorm: 773747 1 Application TOP BID and as needed to sore on buttocks 09/07/2016 No Stop Date Active cyanocobalamin (vit B-12) 1,000 mcg/mL injection solution RxNorm: 337681 Milliliter(s) Inj 08/29/2016 08/29/2016 Inactive hydrocodone 5 mg-acetaminophen 325 mg tablet RxNorm: 588489 1-2 Tablet(s) PO Q6 as needed for pain 08/29/2016 10/16/2016 Inactive levothyroxine 125 mcg tablet RxNorm: 441013 1 Tablet(s) PO daily 08/25/2016 10/23/2016 Inactive Topamax 25 mg tablet RxNorm: 263118 TAKE 1 TABLET BY MOUTH EVERY DAY AT BEDTIME 08/17/2016 12/05/2016 Inactive Generic For:TOPAMAX 25MG 08/17/2016 2:14:37 PM hydrocodone 5 mg-acetaminophen 325 mg tablet RxNorm: 652049 1-2 Tablet(s) PO Q6 as needed for pain 08/11/2016 08/28/2016 Inactive hydrocodone 5 mg-acetaminophen 325 mg tablet RxNorm: 814130 1 -2 Tablet(s) PO Q6 as needed for pain 08/11/2016 08/18/2016 Inactive hydrocodone 5 mg-acetaminophen 325 mg tablet RxNorm: 052502 1 Tablet(s) PO Q6 as needed for pain 08/05/2016 08/10/2016 Inactive cyanocobalamin (vit B-12) 1,000 mcg/mL injection solution RxNorm: 057408 Milliliter(s) Inj 08/04/2016 08/04/2016 Inactive Norvasc 10 mg tablet RxNorm: 879840 1 Tablet(s) PO daily 07/26/2016 07/20/2017 Inactive alprazolam 0.25 mg tablet RxNorm: 063765 1 Tablet(s) PO QHS 07/21/2016 09/19/2016 Inactive Norvasc 5 mg tablet RxNorm: 423769 1 Tablet(s) PO daily 07/21/2016 07/25/2016 Inactive levothyroxine 125 mcg tablet RxNorm: 561280 1 Tablet(s) PO daily 07/21/2016 12/11/2017 Inactive cyanocobalamin (vit B-12) 1,000 mcg/mL injection solution RxNorm: 909079 Milliliter(s) Inj 07/21/2016 07/21/2016 Inactive Zoloft 50 mg tablet RxNorm: 854167 Tablet(s) TAKE 1 TABLET BY MOUTH DAILY 07/21/2016 09/13/2016 Inactive Generic For:ZOLOFT 50MG cyanocobalamin (vit B-12) 1,000 mcg/mL injection solution RxNorm: 043992 1 Milliliter(s) Inj 07/05/2016 07/05/2016 Inactive cyanocobalamin (vit B-12) 1,000 mcg/mL injection solution RxNorm: 963891 1 Milliliter(s) Inj 06/22/2016 06/22/2016 Inactive cyanocobalamin (vit B-12) 1,000 mcg/mL injection solution RxNorm: 775759 Milliliter(s) Inj 06/09/2016 06/09/2016 Inactive Aricept 10 mg tablet RxNorm: 238505 1 Tablet(s) PO daily 05/27/2016 05/21/2017 Inactive Mobic 15 mg tablet RxNorm: 727595 1 Tablet(s) PO daily 05/27/2016 05/21/2017 Inactive levothyroxine 125 mcg tablet RxNorm: 592995 1 Tablet(s) PO daily 05/25/2016 07/20/2016 Inactive cyanocobalamin (vit B-12) 1,000 mcg/mL injection solution RxNorm: 302004 1 Milliliter(s) Inj 05/25/2016 05/25/2016 Inactive doxycycline hyclate 100 mg capsule RxNorm: 2991666 1 Capsule(s) PO BID 05/16/2016 05/15/2016 Inactive doxycycline hyclate 100 mg capsule RxNorm: 3266092 1 Capsule(s) PO BID 05/16/2016 05/22/2016 Inactive cyanocobalamin (vit B-12) 1,000 mcg/mL injection solution RxNorm: 761285 Milliliter(s) Inj 05/10/2016 05/10/2016 Inactive cyanocobalamin (vit B-12) 1,000 mcg/mL injection solution RxNorm: 095102 Milliliter(s) Inj 04/26/2016 04/26/2016 Inactive Topamax 25 mg tablet RxNorm: 103201 1 Tablet(s) PO QPM 04/22/2016 08/16/2016 Inactive cyanocobalamin (vit B-12) 1,000 mcg/mL injection solution RxNorm: 598181 Milliliter(s) 1 Milliliter(s) Inj [id number] 04/11/2016 12/31/2017 Inactive liothyronine 5 mcg tablet RxNorm: 124891 1 Tablet(s) PO BID 04/11/2016 09/13/2016 Inactive cyanocobalamin (vit B-12) 1,000 mcg/mL injection solution RxNorm: 164321 Milliliter(s) Inj 04/11/2016 04/11/2016 Inactive cyanocobalamin (vit B-12) 1,000 mcg/mL injection solution RxNorm: 037130 Milliliter(s) Inj 03/31/2016 03/31/2016 Inactive cyanocobalamin (vit B-12) 1,000 mcg/mL injection solution RxNorm: 878147 1 Milliliter(s) Inj 03/15/2016 03/15/2016 Inactive levothyroxine 125 mcg tablet RxNorm: 060225 1 Tablet(s) PO daily 2016 03/03/2016 Inactive levothyroxine 125 mcg tablet RxNorm: 860209 1 Tablet(s) PO daily 2016 05/24/2016 Inactive cyanocobalamin (vit B-12) 1,000 mcg/mL injection solution RxNorm: 152637 Milliliter(s) Inj 02/25/2016 02/25/2016 Inactive cyanocobalamin (vit B-12) 1,000 mcg/mL injection solution RxNorm: 709144 1 Milliliter(s) Inj 02/02/2016 02/02/2016 Inactive sucralfate 1 gram tablet RxNorm: 344326 1 Tablet(s) PO QHS 01/25/2016 No Stop Date Active amiodarone 200 mg tablet RxNorm: 030384 1/2 Tablet(s) PO BID 01/25/2016 05/21/2017 Inactive cyanocobalamin (vit B-12) 1,000 mcg/mL injection solution RxNorm: 457975 Milliliter(s) Inj 01/18/2016 01/18/2016 Inactive cyanocobalamin (vit B-12) 1,000 mcg/mL injection solution RxNorm: 235515 Milliliter(s) Inj 12/29/2015 12/29/2015 Inactive Topamax 25 mg tablet RxNorm: 218448 1 Tablet(s) PO QPM 12/08/2015 04/05/2016 Inactive cyanocobalamin (vit B-12) 1,000 mcg/mL injection solution RxNorm: 679893 Milliliter(s) Inj 12/08/2015 12/08/2015 Inactive Bactrim DS 800 mg-160 mg tablet RxNorm: 564260 1 Tablet(s) PO BID 11/23/2015 11/22/2015 Inactive cyanocobalamin (vit B-12) 1,000 mcg/mL injection solution RxNorm: 478565 Milliliter(s) Inj 11/23/2015 11/23/2015 Inactive Bactrim DS 800 mg-160 mg tablet RxNorm: 108704 1 Tablet(s) PO BID 11/23/2015 11/29/2015 Inactive cyanocobalamin (vit B-12) 1,000 mcg/mL injection solution RxNorm: 640330 Milliliter(s) Inj 11/11/2015 11/11/2015 Inactive amoxicillin 500 mg capsule RxNorm: 430295 1 Capsule(s) PO TID 11/10/2015 11/19/2015 Inactive Zithromax Z-Henrique 250 mg tablet RxNorm: 064932 1 Tablet(s) PO UD 11/10/2015 01/24/2016 Inactive zpack x 1 amoxicillin 500 mg capsule RxNorm: 440105 1 Capsule(s) PO TID 11/10/2015 11/09/2015 Inactive cyanocobalamin (vit B-12) 1,000 mcg/mL injection solution RxNorm: 627585 1 Milliliter(s) Inj 10/29/2015 10/29/2015 Inactive [place] 3 capsule RxNorm: 1 Capsule(s) PO QAM , 2 Capsules at noon, 1 Capsule QHS 10/13/2015 No Stop Date Active potassium chloride ER 20 mEq tablet,extended release RxNorm: 678448 2 Tablet(s) PO daily at noon 10/13/2015 No Stop Date Active alprazolam 0.25 mg tablet RxNorm: 599990 1 Tablet(s) PO QHS 10/13/2015 07/20/2016 Inactive amiodarone 200 mg tablet RxNorm: 528302 1 Tablet(s) PO BID 10/13/2015 01/24/2016 Inactive cyanocobalamin (vit B-12) 1,000 mcg/mL injection solution RxNorm: 231056 1 Milliliter(s) Inj 10/12/2015 10/12/2015 Inactive Zofran 4 mg tablet RxNorm: 744092 1 Tablet(s) PO daily as needed 10/07/2015 05/24/2016 Inactive Zoloft 50 mg tablet RxNorm: 023616 TAKE 1 TABLET BY MOUTH DAILY 10/05/2015 05/01/2016 Inactive Generic For:ZOLOFT 50MG cyanocobalamin (vit B-12) 1,000 mcg/mL injection solution RxNorm: 314887 1 Milliliter(s) Inj 09/29/2015 09/29/2015 Inactive cyanocobalamin (vit B-12) 1,000 mcg/mL injection solution RxNorm: 892930 1 Milliliter(s) Inj 09/17/2015 09/17/2015 Inactive Norvasc 5 mg tablet RxNorm: 802208 1 Tablet(s) PO daily 09/17/2015 07/20/2016 Inactive liothyronine 5 mcg tablet RxNorm: 999292 1 Tablet(s) PO BID 09/17/2015 03/14/2016 Inactive Zoloft 50 mg tablet RxNorm: 121726 1 Tablet(s) PO daily 09/17/2015 10/04/2015 Inactive buspirone 15 mg tablet RxNorm: 605111 1 Tablet(s) PO BID 09/17/2015 09/10/2016 Inactive buspirone 15 mg tablet RxNorm: 976789 1 Tablet(s) PO BID 09/14/2015 09/16/2015 Inactive Topamax 25 mg tablet RxNorm: 688548 1 Tablet(s) PO QPM 09/03/2015 12/07/2015 Inactive cyanocobalamin (vit B-12) 1,000 mcg/mL injection solution RxNorm: 169503 1 Milliliter(s) Inj 09/03/2015 09/03/2015 Inactive cyanocobalamin (vit B-12) 1,000 mcg/mL injection solution RxNorm: 732945 Milliliter(s) Inj 08/17/2015 08/17/2015 Inactive cyanocobalamin (vit B-12) 1,000 mcg/mL injection solution RxNorm: 004561 Milliliter(s) Inj 08/06/2015 08/06/2015 Inactive levothyroxine 150 mcg tablet RxNorm: 455268 1 Tablet(s) PO daily 07/22/2015 03/03/2016 Inactive Aricept 10 mg tablet RxNorm: 811883 1 Tablet(s) PO daily 07/22/2015 05/26/2016 Inactive Mobic 15 mg tablet RxNorm: 550598 1 Tablet(s) PO daily 07/22/2015 05/26/2016 Inactive cyanocobalamin (vit B-12) 1,000 mcg/mL injection solution RxNorm: 878570 Milliliter(s) Inj 07/22/2015 07/22/2015 Inactive liothyronine 5 mcg tablet RxNorm: 146554 1 Tablet(s) PO BID 07/22/2015 09/16/2015 Inactive cyanocobalamin (vit B-12) 1,000 mcg/mL injection solution RxNorm: 101188 Milliliter(s) Inj 07/08/2015 07/08/2015 Inactive cyanocobalamin (vit B-12) 1,000 mcg/mL injection solution RxNorm: 786402 Milliliter(s) Inj 06/23/2015 06/23/2015 Inactive cyanocobalamin (vit B-12) 1,000 mcg/mL injection solution RxNorm: 475446 1 Milliliter(s) Inj 06/08/2015 06/08/2015 Inactive cyanocobalamin (vit B-12) 1,000 mcg/mL injection solution RxNorm: 929051 Milliliter(s) Inj 05/27/2015 05/27/2015 Inactive Aricept 10 mg tablet RxNorm: 651989 1 Tablet(s) PO daily 05/20/2015 07/21/2015 Inactive Zofran 4 mg tablet RxNorm: 838942 1 Tablet(s) PO daily as needed 05/20/2015 06/18/2015 Inactive alprazolam 0.25 mg tablet RxNorm: 033404 1 Tablet(s) PO BID 05/20/2015 10/12/2015 Inactive Mobic 15 mg tablet RxNorm: 301721 1 Tablet(s) PO daily 05/20/2015 07/21/2015 Inactive tramadol ER 100 mg tablet,extended release 24 hr RxNorm: 230378 1 Tablet(s) PO Q6 as needed 05/13/2015 No Stop Date Active cyanocobalamin (vit B-12) 1,000 mcg/mL injection solution RxNorm: 765243 1 Milliliter(s) Inj 05/12/2015 05/12/2015 Inactive Topamax 25 mg tablet RxNorm: 525555 1 Tablet(s) PO BID (start at one pill at bedtime x 1week then twice daily thereafter) 05/12/2015 09/02/2015 Inactive cyanocobalamin (vit B-12) 1,000 mcg/mL injection kit RxNorm: 198637 kit Inj 04/30/2015 04/30/2015 Inactive cyanocobalamin (vit B-12) 1,000 mcg/mL injection solution RxNorm: 249993 Milliliter(s) Inj 04/16/2015 04/16/2015 Inactive levothyroxine 150 mcg tablet RxNorm: 377081 1 Tablet(s) PO daily 04/08/2015 07/21/2015 Inactive cyanocobalamin (vit B-12) 1,000 mcg/mL injection solution RxNorm: 997612 Milliliter(s) 1 Milliliter(s) Inj [id number] 04/08/2015 04/10/2016 Inactive Cytomel 5 mcg tablet RxNorm: 699620 1 Tablet(s) PO BID 04/08/2015 10/12/2015 Inactive Cytomel 5 mcg tablet RxNorm: 610295 1 Tablet(s) PO BID 04/07/2015 04/07/2015 Inactive Cytomel 5 mcg tablet RxNorm: 794049 1 Tablet(s) PO BID 04/07/2015 04/06/2015 Inactive cyanocobalamin (vit B-12) 1,000 mcg/mL injection solution RxNorm: 704026 Milliliter(s) Inj 04/02/2015 04/02/2015 Inactive cyanocobalamin (vit B-12) 1,000 mcg/mL injection solution RxNorm: 243750 Milliliter(s) Inj 03/18/2015 03/18/2015 Inactive cyanocobalamin (vit B-12) 1,000 mcg/mL injection solution RxNorm: 875327 Milliliter(s) 1 Milliliter(s) Inj [id number] 03/18/2015 04/07/2015 Inactive cyanocobalamin (vit B-12) 1,000 mcg/mL injection solution RxNorm: 048406 1 Milliliter(s) Inj [id number] 03/16/2015 03/17/2015 Inactive cyanocobalamin (vit B-12) 1,000 mcg/mL injection solution RxNorm: 594753 Milliliter(s) Inj 03/03/2015 03/03/2015 Inactive cyanocobalamin (vit B-12) 1,000 mcg/mL injection solution RxNorm: 698395 Milliliter(s) Inj 02/18/2015 02/18/2015 Inactive cyanocobalamin (vit B-12) 1,000 mcg/mL injection solution RxNorm: 336191 Milliliter(s) Inj 02/04/2015 02/04/2015 Inactive cyanocobalamin (vit B-12) 1,000 mcg/mL injection solution RxNorm: 763576 Milliliter(s) Inj 01/22/2015 01/22/2015 Inactive Lac-Hydrin Five 5 % lotion RxNorm: 066526 1 TOP daily 01/13/2015 03/13/2015 Inactive Lac-Hydrin Five 5 % lotion RxNorm: 690142 1 TOP daily 01/13/2015 01/12/2015 Inactive cyanocobalamin (vit B-12) 1,000 mcg/mL injection solution RxNorm: 626957 Milliliter(s) Inj 01/08/2015 01/08/2015 Inactive cyanocobalamin (vit B-12) 1,000 mcg/mL injection solution RxNorm: 941427 Milliliter(s) Inj 12/25/2014 12/25/2014 Inactive levothyroxine 150 mcg tablet RxNorm: 171616 1 Tablet(s) PO daily 12/24/2014 04/07/2015 Inactive tramadol 50 mg tablet RxNorm: 325541 1-2 Tablet(s) PO Q6 as needed 12/17/2014 05/12/2015 Inactive alprazolam 0.25 mg tablet RxNorm: 606456 1 Tablet(s) PO BID 12/17/2014 04/15/2015 Inactive Pradaxa 150 mg capsule RxNorm: 0328987 1 Capsule(s) PO BID 12/16/2014 No Stop Date Active metoprolol tartrate 50 mg tablet RxNorm: 469762 1/2 Tablet(s) PO BID 12/16/2014 09/13/2016 Inactive buspirone 15 mg tablet RxNorm: 633553 1 Tablet(s) PO BID 12/16/2014 09/13/2015 Inactive cyanocobalamin (vit B-12) 1,000 mcg/mL injection solution RxNorm: 825914 1 Milliliter(s) Inj [id number] 12/16/2014 03/15/2015 Inactive cyanocobalamin (vit B-12) 1,000 mcg/mL injection solution RxNorm: 845357 1 Milliliter(s) Inj O0brdtv 12/16/2014 12/15/2014 Inactive sucralfate 1 gram tablet RxNorm: 768112 Tablet(s) PO QID 12/16/2014 12/10/2015 Inactive cyanocobalamin (vit B-12) 1,000 mcg/mL injection solution RxNorm: 054133 Milliliter(s) Inj 12/10/2014 12/10/2014 Inactive cyanocobalamin (vit B-12) 1,000 mcg/mL injection solution RxNorm: 076098 Milliliter(s) Inj 11/26/2014 11/26/2014 Inactive Zoloft 50 mg tablet RxNorm: 472732 1 Tablet(s) PO daily 11/24/2014 06/21/2015 Inactive Zoloft 50 mg tablet RxNorm: 480934 1 Tablet(s) PO daily 11/24/2014 11/23/2014 Inactive cyanocobalamin (vit B-12) 1,000 mcg/mL injection kit RxNorm: 128796 Milliliter(s) Inj 11/12/2014 11/12/2014 Inactive cyanocobalamin (vit B-12) 1,000 mcg/mL injection solution RxNorm: 441222 Milliliter(s) Inj 10/28/2014 10/28/2014 Inactive [SAVINGS FOR NON-COVERED DRUGS -- BIN:[id number], PCN: [id number], Group: [id number], ID# [id number], Questions: . THIS IS NOT INSURANCE.] promethazine oral RxNorm: 8745 oral No Start Date Active tramadol 50 mg tablet RxNorm: 570660 1 Tablet(s) PO TID No Start Date Active digoxin 125 mcg tablet RxNorm: 909417 Tablet(s) PO every other day No Start Date Active furosemide 40 mg tablet RxNorm: 303184 1 Tablet(s) PO daily No Start Date Active Vitamin D3 5,000 unit tablet RxNorm: 267456 1 Tablet(s) PO daily No Start Date Active erythromycin 250 mg capsule,delayed release RxNorm: 853273 1 Capsule(s) PO AC No Start Date Active Protonix 40 mg tablet,delayed release RxNorm: 854328 1 Tablet(s) PO BID No Start Date Active Cozaar 100 mg tablet RxNorm: 612774 1 Tablet(s) PO daily No Start Date 09/13/2016 Inactive sucralfate 1 gram tablet RxNorm: 115000 Tablet(s) PO QID No Start Date 12/15/2014 Inactive amiodarone 200 mg tablet RxNorm: 972915 2 Tablet(s) PO daily No Start Date 10/13/2015 Inactive buspirone 15 mg tablet RxNorm: 155500 1 Tablet(s) PO daily No Start Date 12/15/2014 Inactive potassium chloride ER 20 mEq tablet,extended release RxNorm: 088029 1 Tablet(s) PO daily No Start Date 10/12/2015 Inactive Prilosec 40 mg capsule,delayed release RxNorm: 410892 1 Capsule(s) PO daily No Start Date 09/02/2015 Inactive [place] 3 capsule RxNorm: Capsule(s) PO No Start Date 10/12/2015 Inactive alprazolam 0.25 mg tablet RxNorm: 616543 Tablet(s) PO QHS No Start Date 12/16/2014 Inactive levothyroxine 125 mcg tablet RxNorm: 441278 1 Tablet(s) PO daily No Start Date 12/23/2014 Inactive liothyronine 5 mcg tablet RxNorm: 417829 1 Tablet(s) PO BID No Start Date 07/21/2015 Inactive Mobic 15 mg tablet RxNorm: 801751 Tablet(s) PO daily No Start Date 05/19/2015 Inactive Norvasc 5 mg tablet RxNorm: 038214 1 Tablet(s) PO daily No Start Date 09/16/2015 Inactive Zofran 4 mg tablet RxNorm: 437939 1 Tablet(s) PO daily as needed No Start Date 05/19/2015 Inactive Tamiflu 75 mg capsule RxNorm: 058904 1 Capsule(s) PO BID No Start Date 07/23/2017 Inactive tramadol 50 mg tablet RxNorm: 610703 1 Tablet(s) PO daily as needed No Start Date 12/16/2014 Inactive amiodarone 200 mg tablet RxNorm: 079586 1 Tablet(s) PO daily No Start Date 10/12/2015 Inactive Zofran ODT 4 mg disintegrating tablet RxNorm: 953850 1 Tablet(s) PO TID as needed No Start Date 05/02/2017 Inactive albuterol sulfate 2.5 mg/3 mL (0.083 %) solution for nebulization RxNorm: 010088 3 Milliliter(s) INH Q6 PRN No Start Date 09/20/2017 Inactive meclizine 25 mg tablet RxNorm: 669377 Tablet(s) PO as needed No Start Date 05/24/2016 Inactive Pradaxa 150 mg capsule RxNorm: 4649619 1 Capsule(s) PO daily No Start Date 12/15/2014 Inactive metoprolol tartrate 50 mg tablet RxNorm: 150216 1/2 Tablet(s) PO No Start Date 12/15/2014 Inactive Aricept 10 mg tablet RxNorm: 971865 Tablet(s) PO daily No Start Date 05/19/2015 Inactive Calmoseptine 0.44 %-20.6 % topical ointment RxNorm: 734221 1 Application TOP BID and as needed to sore on buttocks No Start Date 09/06/2016 Inactive Zithromax Z-Henrique 250 mg tablet RxNorm: 301732 1 Tablet(s) PO UD No Start Date 11/09/2015 Inactive zpack x 1 Medication Administered Medication Codes Instructions Start Date Status cyanocobalamin (vit B-12) 1,000 mcg/mL injection solution RxNorm: 337407 Milliliter 11/08/2018 No longer Active cyanocobalamin (vit B-12) 1,000 mcg/mL injection solution RxNorm: 658536 Milliliter 10/23/2018 No longer Active cyanocobalamin (vit B-12) 1,000 mcg/mL injection solution RxNorm: 272622 Milliliter 10/10/2018 No longer Active cyanocobalamin (vit B-12) 1,000 mcg/mL injection solution RxNorm: 936265 Milliliter 09/27/2018 No longer Active cyanocobalamin (vit B-12) 1,000 mcg/mL injection solution RxNorm: 734574 Milliliter 09/11/2018 No longer Active cyanocobalamin (vit B-12) 1,000 mcg/mL injection solution RxNorm: 615571 Milliliter 08/29/2018 No longer Active cyanocobalamin (vit B-12) 1,000 mcg/mL injection solution RxNorm: 679201 Milliliter 08/15/2018 No longer Active Kenalog 40 mg/mL suspension for injection RxNorm: 9746433 Milliliter 08/15/2018 No longer Active cyanocobalamin (vit B-12) 1,000 mcg/mL injection solution RxNorm: 341580 Milliliter 08/01/2018 No longer Active cyanocobalamin (vit B-12) 1,000 mcg/mL injection solution RxNorm: 746740 Milliliter 07/19/2018 No longer Active cyanocobalamin (vit B-12) 1,000 mcg/mL injection solution RxNorm: 162071 Milliliter 07/04/2018 No longer Active cyanocobalamin (vit B-12) 1,000 mcg/mL injection solution RxNorm: 287016 Milliliter 06/20/2018 No longer Active cyanocobalamin (vit B-12) 1,000 mcg/mL injection solution RxNorm: 943853 Milliliter 06/06/2018 No longer Active cyanocobalamin (vit B-12) 1,000 mcg/mL injection solution RxNorm: 852889 Milliliter 05/24/2018 No longer Active cyanocobalamin (vit B-12) 1,000 mcg/mL injection solution RxNorm: 542502 Milliliter 05/09/2018 No longer Active cyanocobalamin (vit B-12) 1,000 mcg/mL injection solution RxNorm: 145600 Milliliter 04/26/2018 No longer Active cyanocobalamin (vit B-12) 1,000 mcg/mL injection solution RxNorm: 441414 Milliliter 04/12/2018 No longer Active cyanocobalamin (vit B-12) 1,000 mcg/mL injection solution RxNorm: 797902 Milliliter 03/30/2018 No longer Active cyanocobalamin (vit B-12) 1,000 mcg/mL injection solution RxNorm: 067587 Milliliter 03/16/2018 No longer Active cyanocobalamin (vit B-12) 1,000 mcg/mL injection solution RxNorm: 413054 Milliliter 03/02/2018 No longer Active cyanocobalamin (vit B-12) 1,000 mcg/mL injection solution RxNorm: 929145 Milliliter 02/08/2018 No longer Active cyanocobalamin (vit B-12) 1,000 mcg/mL injection solution RxNorm: 300224 Milliliter 01/24/2018 No longer Active cyanocobalamin (vit B-12) 1,000 mcg/mL injection solution RxNorm: 484303 Milliliter 01/10/2018 No longer Active cyanocobalamin (vit B-12) 1,000 mcg/mL injection solution RxNorm: 002409 Milliliter 12/27/2017 No longer Active cyanocobalamin (vit B-12) 1,000 mcg/mL injection solution RxNorm: 387197 1Milliliter 12/12/2017 No longer Active cyanocobalamin (vit B-12) 1,000 mcg/mL injection solution RxNorm: 423151 Milliliter 12/01/2017 No longer Active cyanocobalamin (vit B-12) 1,000 mcg/mL injection solution RxNorm: 218383 1Milliliter 11/17/2017 No longer Active cyanocobalamin (vit B-12) 1,000 mcg/mL injection solution RxNorm: 985635 1Milliliter 11/02/2017 No longer Active cyanocobalamin (vit B-12) 1,000 mcg/mL injection solution RxNorm: 381220 1Milliliter 10/20/2017 No longer Active cyanocobalamin (vit B-12) 1,000 mcg/mL injection solution RxNorm: 197211 Milliliter 10/06/2017 No longer Active cyanocobalamin (vit B-12) 1,000 mcg/mL injection solution RxNorm: 473283 Milliliter 09/21/2017 No longer Active Kenalog 40 mg/mL suspension for injection RxNorm: 6703653 Milliliter 09/15/2017 No longer Active cyanocobalamin (vit B-12) 1,000 mcg/mL injection solution RxNorm: 337815 Milliliter 09/07/2017 No longer Active cyanocobalamin (vit B-12) 1,000 mcg/mL injection solution RxNorm: 418256 Milliliter 08/24/2017 No longer Active cyanocobalamin (vit B-12) 1,000 mcg/mL injection solution RxNorm: 779269 Milliliter 07/06/2017 No longer Active Kenalog 40 mg/mL suspension for injection RxNorm: 3055768 1Milliliter 06/20/2017 No longer Active cyanocobalamin (vit B-12) 1,000 mcg/mL injection solution RxNorm: 317724 Milliliter 06/20/2017 No longer Active cyanocobalamin (vit B-12) 1,000 mcg/mL injection solution RxNorm: 560838 Milliliter 06/05/2017 No longer Active cyanocobalamin (vit B-12) 1,000 mcg/mL injection solution RxNorm: 313106 Milliliter 05/25/2017 No longer Active cyanocobalamin (vit B-12) 1,000 mcg/mL injection solution RxNorm: 062720 Milliliter 05/16/2017 No longer Active cyanocobalamin (vit B-12) 1,000 mcg/mL injection solution RxNorm: 446624 1Milliliter 05/01/2017 No longer Active cyanocobalamin (vit B-12) 1,000 mcg/mL injection solution RxNorm: 072415 Milliliter 04/18/2017 No longer Active cyanocobalamin (vit B-12) 1,000 mcg/mL injection solution RxNorm: 377022 Milliliter 04/06/2017 No longer Active cyanocobalamin (vit B-12) 1,000 mcg/mL injection solution RxNorm: 622695 Milliliter 03/22/2017 No longer Active cyanocobalamin (vit B-12) 1,000 mcg/mL injection solution RxNorm: 495463 Milliliter 03/09/2017 No longer Active cyanocobalamin (vit B-12) 1,000 mcg/mL injection solution RxNorm: 225088 Milliliter 02/23/2017 No longer Active cyanocobalamin (vit B-12) 1,000 mcg/mL injection solution RxNorm: 098369 Milliliter 02/09/2017 No longer Active cyanocobalamin (vit B-12) 1,000 mcg/mL injection solution RxNorm: 831499 Milliliter 01/23/2017 No longer Active cyanocobalamin (vit B-12) 1,000 mcg/mL injection solution RxNorm: 816619 Milliliter 01/10/2017 No longer Active cyanocobalamin (vit B-12) 1,000 mcg/mL injection solution RxNorm: 248203 1Milliliter 12/28/2016 No longer Active cyanocobalamin (vit B-12) 1,000 mcg/mL injection solution RxNorm: 879557 Milliliter 12/14/2016 No longer Active cyanocobalamin (vit B-12) 1,000 mcg/mL injection solution RxNorm: 301440 Milliliter 11/24/2016 No longer Active cyanocobalamin (vit B-12) 1,000 mcg/mL injection solution RxNorm: 442814 1Milliliter 11/07/2016 No longer Active cyanocobalamin (vit B-12) 1,000 mcg/mL injection solution RxNorm: 245521 Milliliter 10/24/2016 No longer Active cyanocobalamin (vit B-12) 1,000 mcg/mL injection solution RxNorm: 552059 1Milliliter 09/29/2016 No longer Active cyanocobalamin (vit B-12) 1,000 mcg/mL injection solution RxNorm: 836586 Milliliter 08/29/2016 No longer Active cyanocobalamin (vit B-12) 1,000 mcg/mL injection solution RxNorm: 976441 Milliliter 08/04/2016 No longer Active cyanocobalamin (vit B-12) 1,000 mcg/mL injection solution RxNorm: 718873 Milliliter 07/21/2016 No longer Active cyanocobalamin (vit B-12) 1,000 mcg/mL injection solution RxNorm: 035880 1Milliliter 07/05/2016 No longer Active cyanocobalamin (vit B-12) 1,000 mcg/mL injection solution RxNorm: 066857 1Milliliter 06/22/2016 No longer Active cyanocobalamin (vit B-12) 1,000 mcg/mL injection solution RxNorm: 457016 Milliliter 06/09/2016 No longer Active cyanocobalamin (vit B-12) 1,000 mcg/mL injection solution RxNorm: 225090 1Milliliter 05/25/2016 No longer Active cyanocobalamin (vit B-12) 1,000 mcg/mL injection solution RxNorm: 055682 Milliliter 05/10/2016 No longer Active cyanocobalamin (vit B-12) 1,000 mcg/mL injection solution RxNorm: 612399 Milliliter 04/26/2016 No longer Active cyanocobalamin (vit B-12) 1,000 mcg/mL injection solution RxNorm: 699964 Milliliter 04/11/2016 No longer Active cyanocobalamin (vit B-12) 1,000 mcg/mL injection solution RxNorm: 526653 Milliliter 03/31/2016 No longer Active cyanocobalamin (vit B-12) 1,000 mcg/mL injection solution RxNorm: 009911 1Milliliter 03/15/2016 No longer Active cyanocobalamin (vit B-12) 1,000 mcg/mL injection solution RxNorm: 692023 Milliliter 02/25/2016 No longer Active cyanocobalamin (vit B-12) 1,000 mcg/mL injection solution RxNorm: 615425 1Milliliter 02/02/2016 No longer Active cyanocobalamin (vit B-12) 1,000 mcg/mL injection solution RxNorm: 331417 Milliliter 01/18/2016 No longer Active cyanocobalamin (vit B-12) 1,000 mcg/mL injection solution RxNorm: 033184 Milliliter 12/29/2015 No longer Active cyanocobalamin (vit B-12) 1,000 mcg/mL injection solution RxNorm: 763957 Milliliter 12/08/2015 No longer Active cyanocobalamin (vit B-12) 1,000 mcg/mL injection solution RxNorm: 357153 Milliliter 11/23/2015 No longer Active cyanocobalamin (vit B-12) 1,000 mcg/mL injection solution RxNorm: 402766 Milliliter 11/11/2015 No longer Active cyanocobalamin (vit B-12) 1,000 mcg/mL injection solution RxNorm: 056761 1Milliliter 10/29/2015 No longer Active cyanocobalamin (vit B-12) 1,000 mcg/mL injection solution RxNorm: 821508 1Milliliter 10/12/2015 No longer Active cyanocobalamin (vit B-12) 1,000 mcg/mL injection solution RxNorm: 169829 1Milliliter 09/29/2015 No longer Active cyanocobalamin (vit B-12) 1,000 mcg/mL injection solution RxNorm: 681422 1Milliliter 09/17/2015 No longer Active cyanocobalamin (vit B-12) 1,000 mcg/mL injection solution RxNorm: 879713 1Milliliter 09/03/2015 No longer Active cyanocobalamin (vit B-12) 1,000 mcg/mL injection solution RxNorm: 850513 Milliliter 08/17/2015 No longer Active cyanocobalamin (vit B-12) 1,000 mcg/mL injection solution RxNorm: 683610 Milliliter 08/06/2015 No longer Active cyanocobalamin (vit B-12) 1,000 mcg/mL injection solution RxNorm: 039895 Milliliter 07/22/2015 No longer Active cyanocobalamin (vit B-12) 1,000 mcg/mL injection solution RxNorm: 878015 Milliliter 07/08/2015 No longer Active cyanocobalamin (vit B-12) 1,000 mcg/mL injection solution RxNorm: 936108 Milliliter 06/23/2015 No longer Active cyanocobalamin (vit B-12) 1,000 mcg/mL injection solution RxNorm: 964681 1Milliliter 06/08/2015 No longer Active cyanocobalamin (vit B-12) 1,000 mcg/mL injection solution RxNorm: 859939 Milliliter 05/27/2015 No longer Active cyanocobalamin (vit B-12) 1,000 mcg/mL injection solution RxNorm: 072251 1Milliliter 05/12/2015 No longer Active cyanocobalamin (vit B-12) 1,000 mcg/mL injection kit RxNorm: 336851 kit 04/30/2015 No longer Active cyanocobalamin (vit B-12) 1,000 mcg/mL injection solution RxNorm: 885212 Milliliter 04/16/2015 No longer Active cyanocobalamin (vit B-12) 1,000 mcg/mL injection solution RxNorm: 970590 Milliliter 04/02/2015 No longer Active cyanocobalamin (vit B-12) 1,000 mcg/mL injection solution RxNorm: 504856 Milliliter 03/18/2015 No longer Active cyanocobalamin (vit B-12) 1,000 mcg/mL injection solution RxNorm: 329772 Milliliter 03/03/2015 No longer Active cyanocobalamin (vit B-12) 1,000 mcg/mL injection solution RxNorm: 749696 Milliliter 02/18/2015 No longer Active cyanocobalamin (vit B-12) 1,000 mcg/mL injection solution RxNorm: 763475 Milliliter 02/04/2015 No longer Active cyanocobalamin (vit B-12) 1,000 mcg/mL injection solution RxNorm: 862574 Milliliter 01/22/2015 No longer Active cyanocobalamin (vit B-12) 1,000 mcg/mL injection solution RxNorm: 899934 Milliliter 01/08/2015 No longer Active cyanocobalamin (vit B-12) 1,000 mcg/mL injection solution RxNorm: 959662 Milliliter 12/25/2014 No longer Active cyanocobalamin (vit B-12) 1,000 mcg/mL injection solution RxNorm: 907010 Milliliter 12/10/2014 No longer Active cyanocobalamin (vit B-12) 1,000 mcg/mL injection solution RxNorm: 367581 Milliliter 11/26/2014 No longer Active cyanocobalamin (vit B-12) 1,000 mcg/mL injection kit RxNorm: 986300 Milliliter 11/12/2014 No longer Active cyanocobalamin (vit B-12) 1,000 mcg/mL injection solution RxNorm: 586749 Milliliter 10/28/2014 No longer Active Immunizations Vaccine Codes Date Status Influenza CVX: 141 03/16/2018 completed Influenza CVX: 141 03/22/2017 completed Pneumococcal (Adult) CVX: 33 05/25/2016 completed Influenza CVX: 141 03/15/2016 completed Assessments Condition Codes Effective Dates Vitamin B12 deficiency anemia, unspecified ICD-10: D51.9 ICD-9: 281.1 11/08/2018 Atrophy of thyroid (acquired) ICD-10: E03.4 ICD-9: 244.8 10/29/2018 Essential (primary) hypertension ICD-10: I10 ICD-9: 401.9 10/29/2018 Chronic atrial fibrillation ICD-10: I48.2 ICD-9: 427.31 10/29/2018 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.9 ICD-9: 553.3 10/29/2018 Cough ICD-10: R05 ICD-9: 786.2 10/29/2018 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 ICD-9: 281.0 10/10/2018 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 [...] Code Item Item Code Result Date Microalbumin [id number] MicroAlb <0.7 mg/dL 09/11/2018 Tsh Ord6 TSH (3rd IS) 6.48 uIU/mL 09/10/2018 Free T4 Gzc793 FREE T4 0.89 ng/dL 09/10/2018 Lipid Ord30 CHOL 177 mg/dL 09/10/2018 Lipid Ord30 HDL 64.0 mg/dl 09/10/2018 Lipid Ord30 TRIG 126 mg/dL 09/10/2018 Lipid Ord30 LDL 88 mg/dL 09/10/2018 Lipid Ord30 C/HDL 2.8 Ratio 09/10/2018 Comp Metabolic Aql859 NA 139 mEq/L 09/10/2018 Comp Metabolic Rfr592 K 4.8 mEq/L 09/10/2018 Comp Metabolic Cqa224 CL 103 mEq/L 09/10/2018 Comp Metabolic Aef621 CO2 25.0 mEq/L 09/10/2018 Comp Metabolic Uer752 ANION GAP 16 09/10/2018 Comp Metabolic Vhe262 GLUCOSE 104 mg/dL 09/10/2018 Comp Metabolic Qmf018 Creat 1.0 mg/dL 09/10/2018 Comp Metabolic Qqb270 eGFR 54 ml/min/1.73m2 09/10/2018 Comp Metabolic Fay275 BUN 25 mg/dL 09/10/2018 Comp Metabolic Mnl152 B/C Ratio 24.3 Ratio 09/10/2018 Comp Metabolic Jxf937 CALCIUM 9.3 mg/dL 09/10/2018 Comp Metabolic Ley966 ALK PHOS 71 U/L 09/10/2018 Comp Metabolic Zwy409 AST(SGOT) 25 U/L 09/10/2018 Comp Metabolic Zqo879 ALT(SGPT) 28 U/L 09/10/2018 Comp Metabolic Hrv246 BILI T 0.7 mg/dL 09/10/2018 Comp Metabolic Zfx644 ALBUMIN 4.2 g/dL 09/10/2018 Comp Metabolic Lwa618 TPRO 6.5 g/dL 09/10/2018 Comp Metabolic Cfn659 GLOB 2.3 g/dL 09/10/2018 Comp Metabolic Jha778 A/G Ratio 1.8 Ratio 09/10/2018 Comp Metabolic Atr909 Osmo 282 mOsmo 09/10/2018 Cbc With Differential [...] 27.7 pg 09/10/2018 Cbc With Differential Ord2 [place]% 8.8 % 09/10/2018 Cbc With Differential Ord2 [...] 2.24 K/ul 09/10/2018 Cbc With Differential Ord2 [place] ABS# 0.6 K/ul 09/10/2018 Cbc With Differential Ord2 Eos ABS# 0.2 K/ul 09/10/2018 Cbc With Differential Ord2 Baso ABS# 0.1 K/ul 09/10/2018 %Hba1C Cbi444 % HbA1c 70964- 6 6.0 % 09/10/2018 %Hba1C Npm967 Gluc Ave 126 mg/dL 09/10/2018 Test(s) Not Perfromed [id number] Test(s) Not Performed Test(s) Not Performed. See Below: 09/10/2018 Test(s) Not Perfromed [id number] TEST NAME Microalbumin 09/10/2018 Test(s) Not Perfromed [id number] Rejection Reason Patient Unable to Void 09/10/2018 Test(s) Not Perfromed [id number] COMMENT Patient to deliver sample to the lab at a later date 09/10/2018 Test(s) Not Perfromed [id number] [employer] Favio Mulligan 09/10/2018 Lipid Ord30 CHOL 174 mg/dL 05/29/2018 Lipid Ord30 HDL 49.0 mg/dl 05/29/2018 Lipid Ord30 TRIG 200 mg/dL 05/29/2018 Lipid Ord30 LDL 85 mg/dL 05/29/2018 Lipid Ord30 C/HDL 3.6 Ratio 05/29/2018 Tsh Ord6 TSH (3rd IS) 3.20 uIU/mL 02/26/2018 Free T4 Zou725 FREE T4 0.99 ng/dL 02/26/2018 Cbc With [...] 28.5 pg 02/26/2018 Cbc With Differential Ord2 [place]% 10.3 % 02/26/2018 Cbc With Differential Ord2 [...] 1.80 K/ul 02/26/2018 Cbc With Differential Ord2 [place] ABS# 0.7 K/ul 02/26/2018 Cbc With Differential Ord2 Eos ABS# 0.2 K/ul 02/26/2018 Cbc With Differential Ord2 Baso ABS# 0.0 K/ul 02/26/2018 B12 Izv627 B12 889.00 pg/ml 02/26/2018 Digoxin Ord9 DIGOXIN 0.7 NG/ML 11/23/2017 Comp Metabolic Kai179 NA 142 mEq/L 11/23/2017 Comp Metabolic Mes673 K 4.9 mEq/L 11/23/2017 Comp Metabolic Bgk677 CL 112 mEq/L 11/23/2017 Comp Metabolic Afl989 CO2 18.0 mEq/L 11/23/2017 Comp Metabolic Nly447 ANION GAP 17 11/23/2017 Comp Metabolic Vgp929 GLUCOSE 123 mg/dL 11/23/2017 Comp Metabolic Nqb334 Creat 1.0 mg/dL 11/23/2017 Comp Metabolic Yet427 eGFR 59 ml/min/1.73m2 11/23/2017 Comp Metabolic Hkx097 BUN 24 mg/dL 11/23/2017 Comp Metabolic Ryt681 B/C Ratio 25.0 Ratio 11/23/2017 Comp Metabolic Pis265 CALCIUM 9.4 mg/dL 11/23/2017 Comp Metabolic Hes533 ALK PHOS 56 U/L 11/23/2017 Comp Metabolic Bcz273 AST(SGOT) 17 U/L 11/23/2017 Comp Metabolic Zfs631 ALT(SGPT) 16 U/L 11/23/2017 Comp Metabolic Jjh623 BILI T 0.7 mg/dL 11/23/2017 Comp Metabolic Mhp273 ALBUMIN 3.8 g/dL 11/23/2017 Comp Metabolic Ncv379 TPRO 6.2 g/dL 11/23/2017 Comp Metabolic Iwn499 GLOB 2.4 g/dL 11/23/2017 Comp Metabolic Byt486 A/G Ratio 1.6 Ratio 11/23/2017 Comp Metabolic Fgm867 Osmo 289 mOsmo 11/23/2017 Free T4 Zfz628 FREE T4 1.04 ng/dL 11/23/2017 %Hba1C Kfp519 % HbA1c 49940- 6 6.4 % 11/23/2017 %Hba1C Ctz041 Gluc Ave 137 mg/dL 11/23/2017 Lipid Ord30 CHOL 179 mg/dL 11/23/2017 Lipid Ord30 HDL 51.0 mg/dl 11/23/2017 Lipid Ord30 TRIG 134 mg/dL 11/23/2017 Lipid Ord30 LDL 101 mg/dL 11/23/2017 Lipid Ord30 C/HDL 3.5 Ratio 11/23/2017 Tsh Ord6 TSH (3rd IS) 1.00 uIU/mL 11/23/2017 Microalbumin Ehz975 MicroAlb <0.7 mg/dL 11/23/2017 Comp Metabolic Lfh438 NA 141 mEq/L 01/23/2017 Comp Metabolic Ufr558 K 4.5 mEq/L 01/23/2017 Comp Metabolic Dwl028 CL 107 mEq/L 01/23/2017 Comp Metabolic Xbe217 CO2 21.0 mEq/L 01/23/2017 Comp Metabolic Tkn284 ANION GAP 18 01/23/2017 Comp Metabolic Iyq778 GLUCOSE 138 mg/dL 01/23/2017 Comp Metabolic Aiv651 Creat 1.0 mg/dL 01/23/2017 Comp Metabolic Bet892 eGFR 56 ml/min/1.73m2 01/23/2017 Comp Metabolic Ant553 BUN 26 mg/dL 01/23/2017 Comp Metabolic Bou820 B/C Ratio 25.7 Ratio 01/23/2017 Comp Metabolic Qun093 CALCIUM 9.0 mg/dL 01/23/2017 Comp Metabolic Har184 ALK PHOS 37 U/L 01/23/2017 Comp Metabolic Sat337 AST(SGOT) 20 U/L 01/23/2017 Comp Metabolic Hwg250 ALT(SGPT) 25 U/L 01/23/2017 Comp Metabolic Dum764 BILI T 0.9 mg/dL 01/23/2017 Comp Metabolic Bur918 ALBUMIN 3.8 g/dL 01/23/2017 Comp Metabolic Qmb776 TPRO 6.5 g/dL 01/23/2017 Comp Metabolic Wov158 GLOB 2.7 g/dL 01/23/2017 Comp Metabolic Wkc366 A/G Ratio 1.4 Ratio 01/23/2017 Comp Metabolic Tow911 Osmo 288 mOsmo 01/23/2017 Free T4 Jwg619 FREE T4 1.05 ng/dL 01/23/2017 %Hba1C Inz574 % HbA1c 35437- 6 6.1 % 01/23/2017 %Hba1C Ora909 Gluc Ave 128 mg/dL 01/23/2017 Tsh Ord6 hTSH II 1.68 uIU/mL 01/23/2017 Culture Urine [id number] URINE CULTURE SEE NOTES 11/10/2016 Culture Urine [id number] Continued Results 11/10/2016 Urine Culture Ucult Complete [...] Ord15 CALCIUM 9.3 mg/dL 09/29/2016 Free T4 Cpw339 FREE T4 0.99 ng/dL 09/07/2016 Cbc With [...] 30.0 pg 09/07/2016 Cbc With Differential Ord2 [place]% 9.8 % 09/07/2016 Cbc With Differential Ord2 [...] 1.75 K/ul 09/07/2016 Cbc With Differential Ord2 [place] ABS# 0.6 K/ul 09/07/2016 Cbc With Differential Ord2 Eos ABS# 0.1 K/ul 09/07/2016 Cbc With Differential Ord2 Baso ABS# 0.0 K/ul 09/07/2016 Tsh Ord6 hTSH II 1.41 uIU/mL 09/07/2016 Culture Urine [id number] URINE CULTURE SEE NOTES 06/27/2016 Lipid Ord30 CHOL 196 mg/dL 06/22/2016 Lipid Ord30 HDL 63.0 mg/dl 06/22/2016 Lipid Ord30 TRIG 154 mg/dL 06/22/2016 Lipid Ord30 LDL 102 mg/dL 06/22/2016 Lipid Ord30 C/HDL 3.1 Ratio 06/22/2016 Hepatic Wkm045 ALBUMIN 4.2 g/dL 06/22/2016 Hepatic Pnn984 TPRO 7.0 g/dL 06/22/2016 Hepatic Yjg104 GLOB 2.8 g/dL 06/22/2016 Hepatic Vwh498 A/G Ratio 1.5 Ratio 06/22/2016 Hepatic Fga805 ALK PHOS 54 U/L 06/22/2016 Hepatic Tml749 ALT(SGPT) 30 U/L 06/22/2016 Hepatic Rqu232 AST(SGOT) 24 U/L 06/22/2016 Hepatic Ttj603 BILI T 1.1 mg/dL 06/22/2016 Hepatic Xdb222 BILI D 0.2 mg/dL 06/22/2016 Hepatic Elb509 BILI I 0.9 mg/dL 06/22/2016 Comp Metabolic Wcc602 NA 139 mEq/L 06/14/2016 Comp Metabolic Ydf930 K 4.6 mEq/L 06/14/2016 Comp Metabolic Ypd703 CL 108 mEq/L 06/14/2016 Comp Metabolic Ycu104 CO2 22.0 mEq/L 06/14/2016 Comp Metabolic Rio005 ANION GAP 14 06/14/2016 Comp Metabolic Txh053 GLUCOSE 114 mg/dL 06/14/2016 Comp Metabolic Vra537 Creat 1.2 mg/dL 06/14/2016 Comp Metabolic Tfa781 eGFR 48 ml/min/1.73m2 06/14/2016 Comp Metabolic Wxq189 BUN 24 mg/dL 06/14/2016 Comp Metabolic Drs201 B/C Ratio 20.9 Ratio 06/14/2016 Comp Metabolic Ecy024 CALCIUM 9.9 mg/dL 06/14/2016 Comp Metabolic Jab414 ALK PHOS 47 U/L 06/14/2016 Comp Metabolic Gkx867 AST(SGOT) 28 U/L 06/14/2016 Comp Metabolic Zzl011 ALT(SGPT) 32 U/L 06/14/2016 Comp Metabolic Jbr734 BILI T 0.9 mg/dL 06/14/2016 Comp Metabolic Rsc789 ALBUMIN 4.1 g/dL 06/14/2016 Comp Metabolic Skg387 TPRO 6.9 g/dL 06/14/2016 Comp Metabolic Bgt649 GLOB 2.8 g/dL 06/14/2016 Comp Metabolic Mqd574 A/G Ratio 1.5 Ratio 06/14/2016 Comp Metabolic Vvx653 Osmo 282 mOsmo 06/14/2016 Tsh Ord6 hTSH II 1.26 uIU/mL 06/14/2016 Free T4 Ypm906 FREE T4 1.09 ng/dL 06/14/2016 Tsh Ord6 hTSH II 0.28 uIU/mL 02/02/2016 Digoxin Ord9 DIGOXIN 0.7 NG/ML 02/02/2016 Free T4 Sak211 FREE T4 1.23 ng/dL 02/02/2016 Hepatic Skn878 ALBUMIN 4.0 g/dL 02/02/2016 Hepatic Lgr136 TPRO 7.0 g/dL 02/02/2016 Hepatic Sla432 GLOB 3.0 g/dL 02/02/2016 Hepatic Gvp673 A/G Ratio 1.3 Ratio 02/02/2016 Hepatic Ggy323 ALK PHOS 57 U/L 02/02/2016 Hepatic Ays217 ALT(SGPT) 62 U/L 02/02/2016 Hepatic Bsq434 AST(SGOT) 54 U/L 02/02/2016 Hepatic Ffb668 BILI T 0.8 mg/dL 02/02/2016 Hepatic Rpm216 BILI D 0.2 mg/dL 02/02/2016 Hepatic Wvg743 BILI I 0.6 mg/dL 02/02/2016 Urine Culture Ucult Preliminary No Growth Day 1 11/25/2015 Urine Culture Ucult Complete No Growth Day 2 11/25/2015 Hepatic Hnd003 ALBUMIN 3.9 g/dL 11/11/2015 Hepatic Mim326 TPRO 7.0 g/dL 11/11/2015 Hepatic Lwl925 GLOB 3.1 g/dL 11/11/2015 Hepatic Lla205 A/G Ratio 1.3 Ratio 11/11/2015 Hepatic Zjo462 ALK PHOS 63 U/L 11/11/2015 Hepatic Adx586 ALT(SGPT) 107 U/L 11/11/2015 Hepatic Kct080 AST(SGOT) 101 U/L 11/11/2015 Hepatic Yko928 BILI T 0.6 mg/dL 11/11/2015 Hepatic Iuv893 BILI D 0.1 mg/dL 11/11/2015 Hepatic Ngb977 BILI I 0.5 mg/dL 11/11/2015 Comp Metabolic Dhz415 NA 138 mEq/L 10/29/2015 Comp Metabolic Efs679 K 5.0 mEq/L 10/29/2015 Comp Metabolic Iog742 CL 105 mEq/L 10/29/2015 Comp Metabolic Dqk464 CO2 23.0 mEq/L 10/29/2015 Comp Metabolic Xbq251 ANION GAP 15 10/29/2015 Comp Metabolic Inn637 GLUCOSE 105 mg/dL 10/29/2015 Comp Metabolic Npz626 Creat 1.0 mg/dL 10/29/2015 Comp Metabolic Ymc152 eGFR 55 ml/min/1.73m2 10/29/2015 Comp Metabolic Ctv526 BUN 20 mg/dL 10/29/2015 Comp Metabolic Ire768 B/C Ratio 19.4 Ratio 10/29/2015 Comp Metabolic Ini254 CALCIUM 8.8 mg/dL 10/29/2015 Comp Metabolic Fom108 ALK PHOS 56 U/L 10/29/2015 Comp Metabolic Gmd419 AST(SGOT) 66 U/L 10/29/2015 Comp Metabolic Xss587 ALT(SGPT) 78 U/L 10/29/2015 Comp Metabolic Cmh185 BILI T 0.7 mg/dL 10/29/2015 Comp Metabolic Lgw160 ALBUMIN 3.6 g/dL 10/29/2015 Comp Metabolic Yej257 TPRO 6.6 g/dL 10/29/2015 Comp Metabolic Sgp630 GLOB 3.0 g/dL 10/29/2015 Comp Metabolic Fet149 A/G Ratio 1.2 Ratio 10/29/2015 Comp Metabolic Drj996 Osmo 279 mOsmo 10/29/2015 Comp Metabolic Utz848 NA 136 mEq/L 09/03/2015 Comp Metabolic Ijr013 K 4.4 mEq/L 09/03/2015 Comp Metabolic Mrq495 CL 103 mEq/L 09/03/2015 Comp Metabolic Tpk176 CO2 24.0 mEq/L 09/03/2015 Comp Metabolic Enl333 ANION GAP 13 09/03/2015 Comp Metabolic Llm628 GLUCOSE 87 mg/dL 09/03/2015 Comp Metabolic Gfx463 Creat 1.1 mg/dL 09/03/2015 Comp Metabolic Dft427 eGFR 53 ml/min/1.73m2 09/03/2015 Comp Metabolic Lug927 BUN 17 mg/dL 09/03/2015 Comp Metabolic Vlm699 B/C Ratio 16.2 Ratio 09/03/2015 Comp Metabolic Svd334 CALCIUM 9.0 mg/dL 09/03/2015 Comp Metabolic Jyi051 ALK PHOS 55 U/L 09/03/2015 Comp Metabolic Fba581 AST(SGOT) 83 U/L 09/03/2015 Comp Metabolic Rae432 ALT(SGPT) 126 U/L 09/03/2015 Comp Metabolic Jqx997 BILI T 0.9 mg/dL 09/03/2015 Comp Metabolic Lsk261 ALBUMIN 3.9 g/dL 09/03/2015 Comp Metabolic Gwc228 TPRO 6.8 g/dL 09/03/2015 Comp Metabolic Jmt347 GLOB 2.9 g/dL 09/03/2015 Comp Metabolic Qep760 A/G Ratio 1.4 Ratio 09/03/2015 Comp Metabolic Avc144 Osmo 273 mOsmo 09/03/2015 Total T3 Ord42 TT3 0.6 ng/ml 07/09/2015 Tsh Ord6 hTSH II 1.62 uIU/mL 07/09/2015 Total T3 Ord42 TT3 0.5 ng/ml 04/02/2015 Free T4 Tke918 FREE T4 1.23 ng/dL 04/02/2015 Tsh Ord6 [...] Effective Dates Notes Full Exam - General 1995 Constitutional general appearance Overall: well developed 10/29/2018 [...] distress 08/15/2018 None Full Exam - General 1994 Constitutional general appearance Overall: well nourished 08/15/2018 None Full Exam - General 1994 Eyes conjunctiva/eyelids Overall: conjunctiva clear 08/15/2018 None Full Exam - General 1994 Eyes conjunctiva/eyelids Overall: eyelids normal 08/15/2018 None Full Exam - General 1995 Ears/Nose/Throat otoscopic exam Overall: external auditory canals clear 08/15/2018 None Full Exam - General 1995 Ears/Nose/Throat otoscopic exam Tympanic membrane: air-fluid level 08/15/2018 None Full Exam - General 1995 Ears/Nose/Throat lips/teeth/gingiva Overall: benign lips 08/15/2018 None Full Exam - General 1995 Ears/Nose/Throat oral cavity/pharynx/larynx Overall: oral mucosa clear 08/15/2018 None Full Exam - General 1995 Ears/Nose/Throat oral cavity/pharynx/larynx Posterior Pharynx: clear post [...] dentition 01/23/2017 None Full Exam - General 1995 Ears/Nose/Throat oral cavity/pharynx/larynx Overall: oral mucosa clear 01/23/2017 None Full Exam - General 1994 Ears/Nose/Throat oral cavity/pharynx/larynx Overall: oropharyngeal mucosa clear 01/23/2017 None Full Exam - General 1995 Ears/Nose/Throat oral cavity/pharynx/larynx Overall: hypopharynx benign 01/23/2017 [...] Procedure Codes Date THER/PROPH/DIAG INJ SC/IM CPT-4: 25473 11/08/2018 THER/PROPH/DIAG INJ SC/IM CPT-4: 93029 10/23/2018 THER/PROPH/DIAG INJ SC/IM CPT-4: 31386 10/10/2018 THER/PROPH/DIAG INJ SC/IM CPT-4: 30399 09/27/2018 THER/PROPH/DIAG INJ SC/IM CPT-4: 60405 09/11/2018 THER/PROPH/DIAG INJ SC/IM CPT-4: 02671 08/29/2018 THER/PROPH/DIAG INJ SC/IM CPT-4: 50831 08/15/2018 TRIAMCINOLONE ACET INJ NOS CPT-4: J3301 08/15/2018 THER/PROPH/DIAG INJ SC/IM CPT-4: 50599 08/01/2018 VITAMIN B12 INJECTION CPT- 4: J3420 08/01/2018 THER/PROPH/DIAG INJ SC/IM CPT-4: 96795 07/19/2018 THER/PROPH/DIAG INJ SC/IM CPT-4: 54189 07/04/2018 THER/PROPH/DIAG INJ SC/IM CPT-4: 66979 06/20/2018 THER/PROPH/DIAG INJ SC/IM CPT-4: 86443 06/06/2018 VITAMIN B12 INJECTION CPT- 4: J3420 06/06/2018 THER/PROPH/DIAG INJ SC/IM CPT-4: 57214 05/24/2018 THER/PROPH/DIAG INJ SC/IM CPT-4: 15207 05/09/2018 THER/PROPH/DIAG INJ SC/IM CPT-4: 96803 04/26/2018 VITAMIN B12 INJECTION CPT- 4: J3420 04/26/2018 THER/PROPH/DIAG INJ SC/IM CPT-4: 93233 04/12/2018 THER/PROPH/DIAG INJ SC/IM CPT-4: 57719 03/30/2018 THER/PROPH/DIAG INJ SC/IM CPT-4: 43025 03/16/2018 VITAMIN B12 INJECTION CPT- 4: J3420 03/16/2018 ADMIN INFLUENZA VIRUS VAC CPT-4: G0008 03/16/2018 FLU VACC PRSV FREE INC ANTIG Formatting Model/CDA Sections, Assigned to/Nga Ojeda CPT-4: 16680Hjrohpm 03/16/2018 THER/PROPH/DIAG INJ SC/IM CPT-4: 38133 03/02/2018 THER/PROPH/DIAG INJ SC/IM CPT-4: 11362 02/08/2018 THER/PROPH/DIAG INJ SC/IM CPT-4: 24812 01/24/2018 THER/PROPH/DIAG INJ SC/IM CPT-4: 41297 01/10/2018 THER/PROPH/DIAG INJ SC/IM CPT-4: 38733 12/27/2017 VITAMIN B12 INJECTION CPT- 4: J3420 12/27/2017 THER/PROPH/DIAG INJ SC/IM CPT-4: 83561 12/12/2017 THER/PROPH/DIAG INJ SC/IM CPT-4: 07919 12/01/2017 VITAMIN B12 INJECTION CPT- 4: J3420 12/01/2017 THER/PROPH/DIAG INJ SC/IM CPT-4: 87535 11/17/2017 THER/PROPH/DIAG INJ SC/IM CPT-4: 01359 11/02/2017 THER/PROPH/DIAG INJ SC/IM CPT-4: 22573 10/20/2017 THER/PROPH/DIAG INJ SC/IM CPT-4: 47787 10/06/2017 THER/PROPH/DIAG INJ SC/IM CPT-4: 76213 09/21/2017 TRIAMCINOLONE ACET INJ NOS CPT-4: J3301 09/15/2017 THER/PROPH/DIAG INJ SC/IM CPT-4: 45959 09/07/2017 THER/PROPH/DIAG INJ SC/IM CPT-4: 80553 08/24/2017 THER/PROPH/DIAG INJ SC/IM CPT-4: 74552 07/06/2017 THER/PROPH/DIAG INJ SC/IM CPT-4: 22609 06/20/2017 TRIAMCINOLONE ACET INJ NOS CPT-4: J3301 06/20/2017 PPPS, SUBSEQ VISIT CPT- 4: G0439 06/05/2017 THER/PROPH/DIAG INJ SC/IM CPT-4: 00060 06/05/2017 THER/PROPH/DIAG INJ SC/IM CPT-4: 09120 05/25/2017 VITAMIN B12 INJECTION CPT- 4: J3420 05/25/2017 THER/PROPH/DIAG INJ SC/IM CPT-4: 24544 05/16/2017 THER/PROPH/DIAG INJ SC/IM CPT-4: 07293 05/01/2017 THER/PROPH/DIAG INJ SC/IM CPT-4: 70523 04/18/2017 THER/PROPH/DIAG INJ SC/IM CPT-4: 67303 04/06/2017 ADMIN INFLUENZA VIRUS VAC CPT-4: G0008 03/22/2017 FLU VACC PRSV FREE INC ANTIG CPT-4: 83028 03/22/2017 THER/PROPH/DIAG INJ SC/IM CPT-4: 15776 03/09/2017 THER/PROPH/DIAG INJ SC/IM CPT-4: 68188 02/23/2017 THER/PROPH/DIAG INJ SC/IM CPT-4: 31865 02/09/2017 THER/PROPH/DIAG INJ SC/IM CPT-4: 38958 01/23/2017 THER/PROPH/DIAG INJ SC/IM CPT-4: 21981 01/10/2017 THER/PROPH/DIAG INJ SC/IM CPT-4: 48201 12/28/2016 THER/PROPH/DIAG INJ SC/IM CPT-4: 82808 12/14/2016 THER/PROPH/DIAG INJ SC/IM CPT-4: 51290 11/24/2016 URINALYSIS NONAUTO W/O SCOPE CPT-4: 98848 11/07/2016 THER/PROPH/DIAG INJ SC/IM CPT-4: 94475 11/07/2016 THER/PROPH/DIAG INJ SC/IM CPT-4: 77137 10/24/2016 THER/PROPH/DIAG INJ SC/IM CPT-4: 97742 09/29/2016 THER/PROPH/DIAG INJ SC/IM CPT-4: 61550 08/29/2016 THER/PROPH/DIAG INJ SC/IM CPT-4: 10936 08/04/2016 THER/PROPH/DIAG INJ SC/IM CPT-4: 09485 07/21/2016 THER/PROPH/DIAG INJ SC/IM CPT-4: 44247 07/05/2016 THER/PROPH/DIAG INJ SC/IM CPT-4: 20282 06/22/2016 URINALYSIS NONAUTO W/O SCOPE CPT-4: 21062 06/22/2016 THER/PROPH/DIAG INJ SC/IM CPT-4: 86251 06/09/2016 PPPS, SUBSEQ VISIT CPT- 4: G0439 05/30/2016 ADMIN PNEUMOCOCCAL VACCINE SNOMED CT: 17222029 CPT-4: G0009 05/25/2016 Pneumococcal Polysaccharide Vaccine, 23-Valent, Ad CPT-4: 34253 05/25/2016 THER/PROPH/DIAG INJ SC/IM CPT-4: 27115 05/25/2016 THER/PROPH/DIAG INJ SC/IM CPT-4: 00767 05/10/2016 TRIAMCINOLONE ACET INJ NOS CPT-4: J3301 04/26/2016 VITAMIN B12 INJECTION CPT- 4: J3420 04/26/2016 THER/PROPH/DIAG INJ SC/IM CPT-4: 61274 04/11/2016 THER/PROPH/DIAG INJ SC/IM CPT-4: 71555 03/31/2016 ADMIN INFLUENZA VIRUS VAC CPT-4: G0008 03/15/2016 FLU VACC 4 STEPHANIE 3 YRS PLUS IM SNOMED CT: 70395898 CPT-4: 52175 03/15/2016 THER/PROPH/DIAG INJ SC/IM CPT-4: 29181 02/25/2016 THER/PROPH/DIAG INJ SC/IM CPT-4: 55400 02/02/2016 THER/PROPH/DIAG INJ SC/IM CPT-4: 29419 01/18/2016 VITAMIN B12 INJECTION CPT- 4: J3420 12/29/2015 THER/PROPH/DIAG INJ SC/IM CPT-4: 43006 12/29/2015 THER/PROPH/DIAG INJ SC/IM CPT-4: 72078 12/08/2015 THER/PROPH/DIAG INJ SC/IM CPT-4: 19864 11/23/2015 URINALYSIS NONAUTO W/O SCOPE CPT-4: 97098 11/23/2015 THER/PROPH/DIAG INJ SC/IM CPT-4: 84417 11/11/2015 THER/PROPH/DIAG INJ SC/IM CPT-4: 91065 10/29/2015 THER/PROPH/DIAG INJ SC/IM CPT-4: 16746 10/12/2015 VITAMIN B12 INJECTION CPT- 4: J3420 10/12/2015 THER/PROPH/DIAG INJ SC/IM CPT-4: 22622 09/29/2015 THER/PROPH/DIAG INJ SC/IM CPT-4: 12146 09/17/2015 THER/PROPH/DIAG INJ SC/IM CPT-4: 99556 09/03/2015 THER/PROPH/DIAG INJ SC/IM CPT-4: 28510 08/17/2015 THER/PROPH/DIAG INJ SC/IM CPT-4: 40772 08/06/2015 THER/PROPH/DIAG INJ SC/IM CPT-4: 12215 07/22/2015 THER/PROPH/DIAG INJ SC/IM CPT-4: 64350 07/08/2015 THER/PROPH/DIAG INJ SC/IM CPT-4: 83344 06/23/2015 THER/PROPH/DIAG INJ SC/IM CPT-4: 77884 06/08/2015 THER/PROPH/DIAG INJ SC/IM CPT-4: 18028 05/27/2015 DESTRUCT PREMALG LESION CPT-4: 31917 05/19/2015 DESTRUCT PREMALG LES 2-14 CPT-4: 65383 05/19/2015 THER/PROPH/DIAG INJ SC/IM CPT-4: 67778 05/12/2015 VITAMIN B12 INJECTION CPT- 4: J3420 05/12/2015 THER/PROPH/DIAG INJ SC/IM CPT-4: 68291 04/30/2015 VITAMIN B12 INJECTION CPT- 4: J3420 04/30/2015 THER/PROPH/DIAG INJ SC/IM CPT-4: 22737 04/16/2015 THER/PROPH/DIAG INJ SC/IM CPT-4: 98550 04/02/2015 VITAMIN B12 INJECTION CPT- 4: J3420 04/02/2015 THER/PROPH/DIAG INJ SC/IM CPT-4: 34075 03/18/2015 THER/PROPH/DIAG INJ SC/IM CPT-4: 07499 03/03/2015 THER/PROPH/DIAG INJ SC/IM CPT-4: 35792 02/18/2015 THER/PROPH/DIAG INJ SC/IM CPT-4: 66175 02/04/2015 VITAMIN B12 INJECTION CPT- 4: J3420 02/04/2015 THER/PROPH/DIAG INJ SC/IM CPT-4: 06540 01/22/2015 THER/PROPH/DIAG INJ SC/IM CPT-4: 93491 01/08/2015 VITAMIN B12 INJECTION CPT- 4: J3420 01/08/2015 THER/PROPH/DIAG INJ SC/IM CPT-4: 88592 12/25/2014 VITAMIN B12 INJECTION CPT- 4: J3420 12/25/2014 THER/PROPH/DIAG INJ SC/IM CPT-4: 67940 12/10/2014 VITAMIN B12 INJECTION CPT- 4: J3420 12/10/2014 THER/PROPH/DIAG INJ SC/IM CPT-4: 75352 11/26/2014 VITAMIN B12 INJECTION CPT- 4: J3420 11/26/2014 THER/PROPH/DIAG INJ SC/IM CPT-4: 52850 11/12/2014 VITAMIN B12 INJECTION CPT- 4: J3420 11/12/2014 THER/PROPH/DIAG INJ SC/IM CPT-4: 97599 10/28/2014 Vital Signs Date Vital 10/29/2018 Blood Pressure 1: 118/68 Code: 8480-6 BMI: 28.1 Code: 22642-0 Heart Rate 1: 64 bpm Height: 5'6" SpO2: 99% Weight: 174 lbs 09/05/2018 Blood Pressure 1: 122/70 Code: 8480-6 BMI: 27.1 Code: 96437-2 Heart Rate 1: 90 bpm Height: 5'6" SpO2: 97% Weight: 168 lbs 08/15/2018 Blood Pressure 1: 142/76 Code: 8480-6 BMI: 27.4 Code: 61414-9 Heart Rate 1: 74 bpm Height: 5'6" SpO2: 95% Temperature: 36.7 (C) / 98.1 (F) Weight: 170 lbs 05/03/2018 Blood Pressure 1: 140/70 Code: 8480-6 BMI: 26.0 Code: 53763-3 Heart Rate 1: 70 bpm Height: 5'6" SpO2: 94% Weight: 161 lbs 04/26/2018 Height: 5'6" 02/26/2018 Blood Pressure 1: 130/72 Code: 8480-6 BMI: 27.9 Code: 07511-7 Heart Rate 1: 72 bpm Height: 5'6" SpO2: 93% Weight: 173 lbs 12/12/2017 Blood Pressure 1: 126/74 Code: 8480-6 BMI: 27.4 Code: 80579-7 Heart Rate 1: 83 bpm Height: 5'6" SpO2: 98% Weight: 170 lbs 12/04/2017 Blood Pressure 1: 104/68 Code: 8480-6 BMI: 28.2 Code: 63379-4 Heart Rate 1: 85 bpm Height: 5'6" SpO2: 95% Weight: 175 lbs 11/20/2017 Blood Pressure 1: 130/68 Code: 8480-6 BMI: 28.4 Code: 32326-1 Heart Rate 1: 80 bpm Height: 5'6" SpO2: 99% Weight: 176 lbs 11/02/2017 Height: 5'6" 09/15/2017 Blood Pressure 1: 134/74 Code: 8480-6 BMI: 28.4 Code: 32290-7 Heart Rate 1: 88 bpm Height: 5'6" SpO2: 98% Weight: 176 lbs 09/07/2017 Blood Pressure 1: 124/64 Code: 8480-6 Heart Rate 1: 90 bpm Height: SpO2: 97% Weight: 08/30/2017 Blood Pressure 1: 140/76 Code: 8480-6 BMI: 28.4 Code: 62347-4 Heart Rate 1: 90 bpm Height: 5'6" SpO2: 94% Weight: 176 lbs 07/06/2017 Blood Pressure 1: 132/66 Code: 8480-6 BMI: 29.4 Code: 73983-5 Heart Rate 1: 85 bpm Height: 5'6" SpO2: 97% Weight: 182 lbs 06/20/2017 Blood Pressure 1: 134/86 Code: 8480-6 Heart Rate 1: 90 bpm Height: SpO2: 98% Weight: 06/05/2017 BMI: 29.1 Code: 48937-6 Height: 5'6" Weight: 180 lbs 05/25/2017 Blood Pressure 1: 126/76 Code: 8480-6 BMI: 29.1 Code: 61528-8 Heart Rate 1: 77 bpm Height: 5'6" SpO2: 97% Weight: 180 lbs 03/23/2017 Blood Pressure 1: 142/84 Code: 8480-6 BMI: 29.1 Code: 66054-7 Heart Rate 1: 91 bpm Height: 5'6" SpO2: 97% Weight: 180 lbs 01/23/2017 Blood Pressure 1: 150/90 Code: 8480-6 BMI: 29.9 Code: 22438-3 Heart Rate 1: 81 bpm Height: 5'6" SpO2: 97% Weight: 185 lbs 11/02/2016 Blood Pressure 1: 148/78 Code: 8480-6 BMI: 29.7 Code: 95931-2 Heart Rate 1: 87 bpm Height: 5'6" SpO2: 97% Weight: 184 lbs 09/29/2016 Blood Pressure 1: 128/78 Code: 8480-6 BMI: 29.7 Code: 22112-6 Heart Rate 1: 78 bpm Height: 5'6" SpO2: 98% Weight: 184 lbs 07/26/2016 Blood Pressure 1: 138/72 Code: 8480-6 BMI: 30.0 Code: 89570-7 Heart Rate 1: 85 bpm Height: 5'6" SpO2: 97% Weight: 186 lbs 05/30/2016 Blood Pressure 1: 132/76 Code: 8480-6 BMI: 30.0 Code: 21491-7 Heart Rate 1: 80 bpm Height: 5'6" SpO2: 98% Waist Measure (cm): 99 cm Weight: 186 lbs 05/25/2016 Blood Pressure 1: 132/76 Code: 8480-6 BMI: 30.0 Code: 68502-0 Heart Rate 1: 80 bpm Height: 5'6" SpO2: 96% Weight: 186 lbs 02/25/2016 Blood Pressure 1: 110/64 Code: 8480-6 Heart Rate 1: 82 bpm Height: SpO2: 96% Weight: 01/25/2016 Blood Pressure 1: 118/70 Code: 8480-6 BMI: 30.0 Code: 20501-7 Heart Rate 1: 78 bpm Height: 5'6" SpO2: 97% Weight: 186 lbs 11/11/2015 Blood Pressure 1: 128/82 Code: 8480-6 BMI: 29.2 Code: 68591-5 Heart Rate 1: 86 bpm Height: 5'6" SpO2: 96% Temperature: 36.4 (C) / 97.6 (F) Weight: 181 lbs 10/12/2015 Blood Pressure 1: 118/70 Code: 8480-6 BMI: 29.2 Code: 65888-4 Heart Rate 1: 81 bpm Height: 5'6" SpO2: 95% Weight: 181 lbs 09/03/2015 Blood Pressure 1: 138/78 Code: 8480-6 BMI: 29.9 Code: 30997-7 Heart Rate 1: 88 bpm Height: 5'6" SpO2: 97% Weight: 185 lbs 05/19/2015 Blood Pressure 1: 146/78 Code: 8480-6 BMI: 30.0 Code: 71792-5 Heart Rate 1: 66 bpm Height: 5'6" SpO2: 97% Weight: 186 lbs 05/12/2015 Blood Pressure 1: 120/70 Code: 8480-6 BMI: 29.9 Code: 40695-0 Heart Rate 1: 89 bpm Height: 5'6" SpO2: 95% Weight: 185 lbs 01/13/2015 Blood Pressure 1: 140/90 Code: 8480-6 BMI: 30.3 Code: 01401-9 Heart Rate 1: 84 bpm Height: 5'6" SpO2: 95% Weight: 188 lbs 12/16/2014 Blood Pressure 1: 140/82 Code: 8480-6 BMI: 29.5 Code: 49283-0 Heart Rate 1: 86 bpm Height: 5'6" [...] data Encounters Encounter Performer Location Codes Date [id number] EST. PATIENT, LEVEL V Diagnosis: Essential (primary) hypertension[ICD10: I10] Diagnosis: Chronic atrial fibrillation[ICD10: I48.2] Diagnosis: Atrophy of thyroid (acquired)[ICD10: E03.4] Diagnosis: Cough[ICD10: R05] Diagnosis: 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[ICD10: K44.9] Yarely Vega MD, [facility] CPT-4: 91751 10/29/2018 [id number]) [id number] EST. PATIENT, LEVEL IV Diagnosis: Essential (primary) hypertension[ICD10: I10] Diagnosis: Type 2 diabetes mellitus without complications[ICD10: E11.9] Diagnosis: Atrophy of thyroid (acquired)[ICD10: E03.4] Diagnosis: Other vitamin B12 deficiency anemias[ICD10: D51.8] Yarely Vega MD, [facility] CPT-4: 19152 09/05/2018 [id number] EST. PATIENT, LEVEL IV Diagnosis: Acute bronchitis due to other specified organisms[ICD10: J20.8] Diagnosis: Cough[ICD10: R05] Diagnosis: 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 factor deficiency[ICD10: D51.0] Brianna Vega MD, [facility] CPT-4: 24695 08/15/2018 ([id number]) 28533 EST. PATIENT, LEVEL IV Diagnosis: Essential (primary) hypertension[ICD10: I10] Diagnosis: Type 2 diabetes mellitus without complications[ICD10: E11.9] Yarely Vega MD, [facility] CPT-4: 20072 05/03/2018 [id number]) 39057 EST. PATIENT, LEVEL III Diagnosis: Pain in left shoulder[ICD10: M25.512] Diagnosis: Pain in right shoulder[ICD10: M25.511] Yarely Vega MD, [facility] CPT-4: 66619 02/26/2018 ([id number]) 69650 EST. PATIENT, LEVEL III Diagnosis: Nausea[ICD10: R11.0] Diagnosis: Cough[ICD10: R05] Diagnosis: 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 factor deficiency[ICD10: D51.0] Janet Vega MD, [facility] CPT-4: 52929 12/12/2017 ([id number]) 67468 EST. PATIENT, LEVEL IV Diagnosis: Acute bronchitis due to Hemophilus influenzae[ICD10: J20.1] Diagnosis: Cough[ICD10: R05] Yarely Vega MD, [facility] CPT-4: 76665 12/04/2017 ([id number]) 61497 EST. PATIENT, LEVEL IV Diagnosis: Essential (primary) hypertension[ICD10: I10] Diagnosis: Cough[ICD10: R05] Diagnosis: Chronic atrial fibrillation[ICD10: I48.2] Yarely Vega MD, [facility] CPT-4: 03123 11/20/2017 ([id number]) 71636 EST. PATIENT, LEVEL III Diagnosis: Cough[ICD10: R05] Diagnosis: Acute upper respiratory infection, unspecified[ICD10: J06.9] Janet Vega MD, [facility] CPT-4: 55225 09/15/2017 12115 EST. PATIENT, LEVEL III Diagnosis: Laceration without foreign body of right forearm, initial encounter[ICD10: S51.811A] Diagnosis: Other vitamin B12 deficiency anemias[ICD10: D51.8] Brianna Vega MD, [facility] CPT-4: 02827 09/07/2017 ([id number]) 31516 EST. PATIENT, LEVEL IV Diagnosis: Chronic atrial fibrillation[ICD10: I48.2] Diagnosis: Other allergic rhinitis[ICD10: J30.89] Diagnosis: Encounter for therapeutic drug level monitoring[ICD10: Z51.81] Yarely Vega MD, [facility] CPT-4: 18497 08/30/2017 ([id number]) 21128 EST. PATIENT, LEVEL IV Diagnosis: Atrophy of thyroid (acquired)[ICD10: E03.4] Diagnosis: Cough[ICD10: R05] Diagnosis: Laceration without foreign body of left forearm, initial encounter[ICD10: S51.812A] Diagnosis: Candidiasis of skin and nail[ICD10: B37.2] Diagnosis: Other vitamin B12 deficiency anemias[ICD10: D51.8] Diagnosis: Slow transit constipation[ICD10: K59.01] Yarely Vega MD, [facility] CPT-4: 81229 07/06/2017 72555 EST. PATIENT, LEVEL III Diagnosis: Other vitamin B12 deficiency anemias[ICD10: D51.8] Diagnosis: Acute laryngopharyngitis[ICD10: J06.0] Diagnosis: Other allergic rhinitis[ICD10: J30.89] Brianna Vega MD, [facility] CPT- 4: 58205 06/20/2017 ([id number]) 15256 EST. PATIENT, LEVEL IV Diagnosis: Essential (primary) hypertension[ICD10: I10] Diagnosis: Chronic atrial fibrillation[ICD10: I48.2] Diagnosis: Atrophy of thyroid (acquired)[ICD10: E03.4] Diagnosis: 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 factor deficiency[ICD10: D51.0] Yarely Vega MD, [facility] CPT-4: 79675 05/25/2017 ([id number]) 85038 EST. 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 PATIENT, LEVEL IV Diagnosis: Type 2 diabetes mellitus without complications[ICD10: E11.9] Diagnosis: Essential (primary) hypertension[ICD10: I10] Diagnosis: Headache[ICD10: R51] Diagnosis: Atrophy of thyroid (acquired)[ICD10: E03.4] Diagnosis: Vitamin B12 deficiency anemia, unspecified[ICD10: D51.9] Yarely Vega MD, [facility] CPT-4: 34406 01/23/2017 08092 EST. PATIENT, LEVEL III Diagnosis: Low back pain[ICD10: M54.5] Diagnosis: Pain in thoracic spine[ICD10: M54.6] Brianna Vega MD, [facility] CPT- 4: 15858 11/02/2016 ([id number]) 91219 EST. PATIENT, LEVEL IV Diagnosis: Essential (primary) hypertension[ICD10: I10] Diagnosis: Other vitamin B12 deficiency anemias[ICD10: D51.8] Diagnosis: Generalized abdominal pain[ICD10: R10.84] Yarely Vega MD, [facility] CPT-4: 73418 09/29/2016 ([id number]) 20115 EST. PATIENT, LEVEL IV Diagnosis: Essential (primary) hypertension[ICD10: I10] Yarely Vega MD, [facility] CPT-4: 50314 07/26/2016 ([id number]) 94817 EST. PATIENT, LEVEL IV Diagnosis: Benign lipomatous neoplasm of skin and subcutaneous tissue of right leg[ICD10: D17.23] Diagnosis: Pain in right ankle and joints of right foot[ICD10: M25.571] Diagnosis: Encounter for immunization[ICD10: Z23] Diagnosis: Vitamin B12 deficiency anemia, unspecified[ICD10: D51.9] Yarely Vega MD, [facility] CPT-4: 35913 05/25/2016 77071 EST. PATIENT, LEVEL III Diagnosis: Other chest pain[ICD10: R07.89] Diagnosis: Other vitamin B12 deficiency anemias[ICD10: D51.8] Brianna Vega MD, [facility] CPT-4: 50369 02/25/2016 ([id number]) 31459 EST. 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 PATIENT, LEVEL III Diagnosis: Other vitamin B12 deficiency anemias[ICD10: D51.8] Diagnosis: Acute nasopharyngitis [common cold][ICD10: J00] Diagnosis: Other allergic rhinitis[ICD10: J30.89] Brianna Vega MD, [facility] CPT- 4: 84826 11/11/2015 ([id number]) 96349 EST. PATIENT, LEVEL IV Diagnosis: Essential tremor[ICD10: G25.0] Diagnosis: Chronic fatigue, unspecified[ICD10: R53.82] Diagnosis: Other hypersomnia[ICD10: G47.19] Diagnosis: Essential (primary) hypertension[ICD10: I10] Yarely Vega MD, [facility] CPT-4: 17013 10/12/2015 ([id number]) 19815 EST. PATIENT, LEVEL IV Diagnosis: Essential (primary) hypertension[ICD10: I10] Diagnosis: Chronic atrial fibrillation[ICD10: I48.2] Diagnosis: Abnormal levels of other serum enzymes[ICD10: R74.8] Diagnosis: Type 2 diabetes mellitus without complications[ICD10: E11.9] Diagnosis: Vitamin B12 deficiency anemia, unspecified[ICD10: D51.9] Yarely Vega MD, [facility] CPT-4: 35104 09/03/2015 ([id number]) 80807 EST. PATIENT, LEVEL III Diagnosis: Nausea[ICD10: R11.0] Diagnosis: Essential tremor[ICD10: G25.0] Diagnosis: Actinic keratosis[ICD10: L57.0] Yarely Vega MD, [facility] CPT-4: 22531 05/19/2015 ([id number]) 80844 EST. PATIENT, LEVEL IV Diagnosis: Vitamin B12 deficiency anemia, unspecified[ICD10: D51.9] Diagnosis: Chronic atrial fibrillation[ICD10: I48.2] Diagnosis: Headache[ICD10: R51] Diagnosis: Chronic fatigue, unspecified[ICD10: R53.82] Diagnosis: Cervicalgia[ICD10: M54.2] Yarely Vega MD, [facility] CPT-4: 12605 05/12/2015 ([id number]) 21613 EST. PATIENT, LEVEL IV Diagnosis: ESSENTIAL HYPERTENSION[ICD9: 401.9] Diagnosis: Afib[ICD9: 427.31] Diagnosis: Anxiety[ICD9: 300.00] Diagnosis: Insomnia[ICD9: 780.52] [facility] CPT-4: 69316 01/13/2015 ([id number]) OFFICE VISIT, NEW - LEVEL 4 Diagnosis: Hypothyroidism[ICD9: 244.9] Diagnosis: DIABETES TYPE II[ICD9: 250.00] Diagnosis: ESSENTIAL HYPERTENSION[ICD9: 401.9] Diagnosis: Afib[ICD9: 427.31] Diagnosis: Anxiety[ICD9: 300.00] Diagnosis: B12 deficiency[ICD9: 266.2] [facility] CPT-4: 95422 12/16/2014 Plan of Care Planned Activity Notes Codes Status Date Appointment: Injection 11/08/2018 Patient Education: Patient Medication [...] the office will call her DTR benji ([phone]) - with appt information Hypertension - well [...] 45 minutes 10/29/2018 Appointment: Yarely Vega WPtel: [address] [place], [place] [address] [place] (15 min) Moderate 10/29/2018 Patient Education: Patient Medication Summary Completed 10/29/2018 Patient Education: Hypertension Completed 10/29/2018 Appointment: Injection 10/23/2018 Patient Education: Patient Medication Summary Completed 10/23/2018 Appointment: Yarely Vega WPtel: [phone] [facility] (15 min) Moderate 10/22/2018 Appointment: Injection 10/10/2018 Patient Education: Patient Medication Summary Completed 10/10/2018 Appointment: Injection 09/27/2018 Patient Education: Patient Medication Summary Completed 09/27/2018 Appointment: Yarely Vega WPtel: [phone] [facility] [place] (15 min) Moderate 09/11/2018 Appointment: Injection [...] control. 09/05/2018 Appointment: [phone] [place] (15 min) Moderate 09/05/2018 Patient Education: Patient [...] Summary Completed 06/20/2018 Appointment: Yarely Vega WPtel: [phone] [facility] (30 min) Complex 06/07/2018 Appointment: Injection 06/06/2018 Patient Education: Patient Medication Summary Completed 06/06/2018 Appointment: [facility]el[phone] [facility] [place] (15 min) Moderate 05/31/2018 Appointment: Injection 05/24/2018 [...] restart flonase 05/03/2018 Appointment: [phone] [facility] [place] (15 min) Moderate 05/03/2018 Patient [...] surgical intervention. 02/26/2018 Appointment: Yarely Vega WPtel: [facility] [place] (15 min) Moderate 02/26/2018 Patient Education: Patient Medication Summary Completed 02/26/2018 Care Plan: Referral Order SNOMED-CT : [id number] Pending 02/26/2018 Appointment: Injection 02/08/2018 Patient Education: Patient Medication Summary Completed 02/08/2018 Appointment: Injection 01/24/2018 Patient Education: Patient Medication Summary Completed 01/24/2018 Appointment: Injection 01/10/2018 Patient Education: Patient Medication Summary Completed 01/10/2018 Appointment: Injection 12/27/2017 Patient Education: Patient Medication Summary Completed 12/27/2017 Appointment: Yarely Vega WPtel: [phone] [facility] [place] (15 min) Moderate 12/26/2017 Visit Plan: Bacnph-mhnxcuffi-sbeezdoo protonix-follow up with Dr Escobedo as scheduled Cough-recent bronchitis-symptoms improved-call if symptoms do not completely resolve 12/12/2017 Appointment: Janet Fam WPtel: [phone] [phone] [place] (15 min) Moderate 12/12/2017 Patient Education: Patient Medication Summary Completed 12/12/2017 Visit Plan: Bronchitis - acute case of bronchitis identified. Pt has been given antibiotics, breathing treatments as appropriate, and pt has been instructed to call if symptoms are not improved, or if symptoms acutely worsen. Cough - rx for antibiotics as well as cough medication. 12/04/2017 Appointment: Yarely Vega WPtel: [phone] [facility] (15 min) Moderate 12/04/2017 Patient Education: Patient [...] Fatigue/malaise -Pt was advsied to ask the Punching Machine Operator the following: ask the heart doctor if [...] uncontrolled. 11/20/2017 Appointment: Yarely Vega WPtel: [phone] [facility] (15 min) Moderate 11/20/2017 Patient Education: Patient [...] any worse. 09/15/2017 Appointment: Janet Fam WPtel: [phone] [place] (15 min) Moderate 09/15/2017 Patient Education: Patient Medication Summary Completed 09/15/2017 Appointment: Yarely Vega WPtel: [facility] [place] (15 min) Moderate 09/11/2017 Visit Plan: Skin tear and Cellulitis - The patient was instructed in appropriate wound care. The patient was instructed to use the antibiotic ointment as per RX. The patient is to call for any change in symptoms, increase in size of the lesion, increase in pain, worsening redness, warmth, discharge. 09/07/2017 Appointment: Brianna Otoole WPtel: [facility] [place] (10 min) Simple 09/07/2017 Patient Education: Patient Medication Summary Completed 09/07/2017 Visit Plan: Lipoma - left ankle - talk to dr. barnes about possible surgery/laser for treatment of lipoma. Fatigue/malaise -Pt was advsied to ask the Punching Machine Operator the following: ask the heart doctor if there is an alternative to the amiodarone - you may be having side effects from the medication causing you to have pruritus (itching) and feeling like you have body aches, muscle aches, joint pain, fatigue, weight loss (decreased appetite), and pneumonia like symptoms. Congestion - claritin 10mg daily. 08/30/2017 Appointment: Yarely Vega WPtel: [facility] [place] (15 min) Moderate 08/30/2017 Patient Education: Patient Medication Summary Completed 08/30/2017 Appointment: Injection 08/24/2017 Appointment: Yarely Vega WPtel: [facility] [place] (15 min) Moderate 08/24/2017 Patient Education: Patient [...] mucinex 07/06/2017 Appointment: Yarely Vega WPtel: [phone] (15 min) Moderate 07/06/2017 Patient Education: Patient [...] spray. 06/20/2017 Appointment: Brianna Otoole WPtel: [phone] [facility] (15 min) Moderate 06/20/2017 Patient Education: Patient [...] Appointment: Injection 06/05/2017 Appointment: [facility]el[phone] [facility] - Annual Wellness Visit 06/05/2017 [...] q 3 months or q [address] [facility] based on previous levels of control. 05/25/2017 Appointment: Yarely Vega WPtel: [phone] [facility] (15 min) Moderate 05/25/2017 Patient Education: [...] wall. Fatigue - pt to discuss with Punching Machine Operator about the possibility of amiodarone causing her fatigue/malaise. 03/23/2017 Appointment: Yarely Vega WPtel: [phone] [facility] (15 min) Moderate 03/23/2017 Patient Education: [...] daily. 01/23/2017 Appointment: Yarely Vega WPtel: [phone] [facility] (15 min) Moderate 01/23/2017 Patient Education: [...] improve. 11/02/2016 Appointment: Bri[facility] Otoole WPtel[phone] [place] (15 min) Moderate 11/02/2016 Patient [...] Appointment: Yarely Vega WPtel: [phone] [facility] [place] (15 min) Moderate 09/29/2016 Patient Education: Patient Medication Summary Completed 09/29/2016 Appointment: Yarely Vega WPtel: [phone] [facility] [place] (15 min) Moderate 09/27/2016 Appointment: Yarely Vega WPtel: [phone] [facility] [place] (15 min) Moderate 09/20/2016 Appointment: Yarely Vega WPtel: [phone] [facility] [place] (15 min) Moderate 09/20/2016 Patient Education: Patient Medication Summary Completed 09/06/2016 Appointment: Yarely Vega WPtel: [phone] [facility] (15 min) Moderate 08/30/2016 Appointment: Injection [...] acute concerns. 07/26/2016 Appointment: Yarely Vega WPtel: [phone] [facility] (15 min) Moderate 07/26/2016 Patient Education: [...] surrogate. 05/30/2016 Appointment: Brianna Otoole WPtel: [phone] [facility] [facility] - Annual Wellness Visit 05/30/2016 Patient Education: [...] based on previous levels of control. h eadaaracely - take topamax at bedtime 05/25/2016 Appointment: Yarely Vega WPtel: [phone] [facility] (15 min) Moderate 05/25/2016 Patient Education: Patient Medication Summary Completed 05/25/2016 Patient Education: Obesity Completed 05/25/2016 Care Plan: Referral Order SNOMED-CT : [id number] Pending 05/25/2016 Appointment: Injection 05/10/2016 Patient Education: Patient Medication Summary Completed 05/10/2016 Appointment: Injection 04/26/2016 Patient Education: Patient Medication Summary Completed 04/26/2016 Appointment: Injection 04/11/2016 Patient Education: Patient Medication Summary Completed 04/11/2016 Appointment: Injection 03/31/2016 Patient Education: Patient Medication Summary Completed 03/31/2016 Patient Education: Patient Medication Summary Completed 03/22/2016 Care Plan: SCREENINGMAMMOGRAPHYDIGITAL LOINC : 20999-9 Pending 03/22/2016 Appointment: Injection 03/15/2016 Patient Education: [...] any concerns. 02/25/2016 Appointment: Brianna Otoole WPtel: [facility] [place] (15 min) Moderate 02/25/2016 Patient Education: [...] the patients recent sleep study - recommended [place] home patient eval of pt - nocturnal [...] the patients recent sleep study - recommended [place] home patient eval of pt - nocturnal [...] case with Faiza's daughter who had left [facility]. She is interested in looking at assisted living facilities for her mom as Faiza's family is for assisted living placement sooner rather than later. 10/12/2015 Appointment: Yarely Vega WPtel: [address] [place], [place] [address] (15 min) Moderate 10/12/2015 Patient Education: Patient [...] Completed 08/17/2015 Appointment: Yarely Vega WPtel: [phone] [facility] (15 min) Moderate 08/11/2015 Appointment: Injection [...] of skin lesions x 2 05/19/2015 Appointment: Josephine Yarely WPtel: [phone] [facility] (30 min) Complex 05/19/2015 Patient Education: [...] prn alprazolam. 01/13/2015 Appointment: Yarely Vega WPtel: [facility] [place] (15 min) Moderate 01/13/2015 Patient Education: Patient [...] medications. 12/16/2014 Appointment: Janet [facility] WPtel: [phone] [phone] [place] ([place]) New Patient 12/16/2014 Patient Education: Patient Medication Summary Completed 12/16/2014 Appointment: Injection 12/10/2014 Patient Education: Patient Medication Summary Completed 12/10/2014 Appointment: Injection 11/26/2014 Patient Education: Patient Medication Summary Completed 11/26/2014 Patient Education: Patient Medication Summary Completed 11/12/2014 Appointment: Nurse Visit 10/28/2014 Patient Education: Patient Medication Summary Completed 10/28/2014 Appointment: Injection 10/14/2014 Referral: Genaro Bravo Referral Appointment Requested Referral: Car Pollard Referral Appointment Requested Instructions Comment . Hypertension [...] case with Faiza's daughter who had left th eoffice. She is interested in looking at [...] the office will call her DTR benji ([phone]) - with appt information Hypertension - well [...] DOPA paperwork for health care surrogate. . Wfuofw-evtmgnqdh-erjmdyfd protonix-follow up with Dr Escobedo as scheduled [...] improved, or if symptoms acutely worsen. . Low back pain- ongoing - will [...] pain is worsening or does not improve. ask the heart doctor if there is [...] Fatigue/malaise -Pt was advsied to ask the Punching Machine Operator the following: ask the heart doctor if [...] if their heart rate is becoming uncontrolled. melatonin can take 3mg to 10mg at [...] cryotherapy of skin lesions x 2 . Skin tear and Cellulitis - The patient was instructed in appropriate wound care. The patient was instructed to use the antibiotic ointment as per RX. The patient is to call for any change in symptoms, increase in size of the lesion, increase in pain, worsening redness, warmth, discharge. increase norvasc from 5mg daily to 10mg [...] situational exposure. No change in current medications. use dry eye drops in the morning [...] wall. Fatigue - pt to discuss with Punching Machine Operator about the possibility of amiodarone causing [...] the patients recent sleep study - recommended [place] home patient eval of pt - nocturnal [...] the patients recent sleep study - recommended [place] home patient eval of pt - nocturnal oxygen study - will order - if positive oxygen concentrator with humidification. Stop Keflex Start Doxycycline - probiotic while [...] spray in the nasal steroid allergy spray. ask the heart doctor if there is [...] Fatigue/malaise -Pt was advsied to ask the Punching Machine Operator the following: ask the heart doctor if there is an alternative to the amiodarone - you may be having side effects from the medication causing you to have pruritus (itching) and feeling like you have body aches, muscle aches, joint pain, fatigue, weight loss (decreased appetite), and pneumonia like symptoms. Congestion - claritin 10mg daily. . Medicare Exam - today we discussed [...]
--- NOTE | 2018-12-05 15:18 | OPERATIVE REPORT ---
DATE OF SERVICE: 12/05/2018 ATTENDING PRIMARY CARE PHYSICIAN: Dr. Vega. PREOPERATIVE DIAGNOSIS: Recurrent dysphagia. POSTOPERATIVE DIAGNOSES: Reflux esophagitis stage II with mild distal esophageal stricture, moderate to large recurrent hiatal hernia, 3 to 4 cm in size. Mild gastritis, mild prepyloric stricture, gastroparesis with retained food substance after being n.p.o. for greater than 18 hours. PROCEDURE: EGD with biopsy and balloon dilatation. SURGEON: Mino Garcia MD ANESTHESIA: Conscious sedation. ESTIMATED BLOOD LOSS: Minimal. FINDINGS: Reflux esophagitis stage II with mild distal esophageal stricture, moderate to large recurrent hiatal hernia, 3 to 4 cm in size. Mild gastritis, mild prepyloric stricture, gastroparesis with retained food substance after being n.p.o. for greater than 18 hours. DISPOSITION: The patient tolerated the procedure well. The patient is an 83-year-old female known to us. She was initially seen 06/2015 for worsening gastroesophageal reflux disease as well as regurgitation. She has a history of gastroesophageal reflux disease and was found to have a hiatal hernia and this was repaired with an antireflux procedure in the . She was found to have a reoccurrence and was scheduled to have this revised in 2014. However, due to adherent tissue and bleeding, the procedure was discontinued. We had done an EGD on her 06/2015 and she was found to have a reflux esophagitis stage II, recurrent hiatal hernia, which was moderate to large and moderate gastritis as well as retained food substance within the stomach consistent with gastroparesis. We have tried erythromycin however, continues to have worsening symptoms of dysphagia. She is currently on Dexilant 60 mg daily. The patient was brought to the endoscopy suite, laid in the left lateral decubitus position with head slightly elevated. After adequate IV pain and sedating medications and conscious. The endoscope was then placed in the mouth, visualizing the pharynx and hypopharyngeal region. Vocal cords, epiglottis and vallecula identified and appeared to be normal. The endoscope was then gently intubated. The esophageal opening and esophagus insufflated. The endoscope was then advanced to the first, second and third portion of esophagus to the level of the GE junction, a reflux esophagitis stage II with a mild distal esophageal stricture identified. This was biopsied using forceps. The endoscope was then advanced in the stomach where the stomach was within the mediastinum consistent with a recurrent hiatal hernia. The previous wrap was also identified in the antegrade view. The endoscope was then advanced in the stomach and then endoscope retroflexed again visualizing the recurrent hiatal hernia as well as a mild stricture distal esophageal stricture. Hiatal hernia was approximately 4 cm in size. Again, retained food substance was identified in the stomach consistent with gastroparesis. There was a mild gastritis. No formal ulcerations. Upon further evaluation of the prepyloric region, there did appear to be a mild stricture in this region as well. Biopsy was taken of the antrum to rule out H. pylori with forceps with visualization of good hemostasis. Endoscope was able to advance through the prepyloric region and through the pylorus as well as to the first and second portion of the duodenum, which appeared normal. We then proceeded with dilatation of the prepyloric region using a balloon. The balloon was placed into the duodenum and pulled back to the area of the stricture and then insufflated to 2, then 4, then 6 atmospheres of pressure with mild resistance and at 20 mm in diameter. We left this in place for approximately 60 seconds and then desufflated the balloon and removed it with visualization of good hemostasis as well as no mucosal tears. In a similar manner, we then proceeded with dilatation of the distal esophageal stricture. The balloon was placed in the stomach and pulled back to the area of the gastroesophageal junction and the previous wrap. The balloon was insufflated at 2, 4 and 6 atmospheres of pressure or 20 mm in luminal diameter with mild to moderate resistance and left this in place for approximately 60 seconds. The balloon was desufflated and removed with visualization of good hemostasis as well. No mucosal tears. Endoscope was then slowly withdrawn while taking a second look and suctioning of residual air with no additional findings. The patient tolerated the procedure well. We will again start her on a very low dose of Reglan at 2.5 mg b.i.d. which seemed to help her in the past; however, she did had to discontinue medications due to the extrapyramidal side effects. At this time, she is again symptomatic of the gastroparesis; however, she cannot tolerate any major surgeries and we will start her on a very small dose as well as the necessary lifestyle and diet accommodation including small and more frequent meals, avoidance of eating at night as well as head elevation while lying supine. She also needs to avoid caffeinated beverages, spicy, greasy and acidic foods. Job ID: [id number] DocumentID: [id number] Dictated Date: 12/05/2018 10:44:17 Wire Drawer Date: 12/05/2018 15:17:13 Dictated By: MINO GARCIA MD
--- OUTSIDE RECORDS SUMMARY | 2018-12-05 15:20 | XMS REPORT | CCD ---
Author Author [facility] Organization [facility] Address [address] [place] [address] Phone Care Team Providers Care Ed Manager Name Role Phone PP Unavailable CCM Unavailable Summary Purpose Interface Exchange Insurance Providers Payer name Policy type / Coverage type Covered democrat ID Effective Begin Date Effective End Date WPS Medicare Part B Medicare Part B [id number] Unknown Principal Life Insurance Medicare Part B [id number] Unknown [employer] in [place] Medicare Part B [id number] Unknown Family history Brother Diagnosis Age At Onset Heart Attack Unknown Mother Diagnosis Age At Onset Hypertension Unknown kidney disease Unknown Stroke Unknown Father Diagnosis Age At Onset Arthritis Unknown Social History Social History Element Codes Description Effective Dates Employment Unknown Retired worked at [employer] 11/20/2017 Marital status Unknown Single 12/16/[address]: 0897158 Former smoker 12/16/[address]: 669972096 Never drinks alcohol 12/16/2014 Allergies, Adverse Reactions, Alerts Substance Reaction Codes Entered Date Inactivated Date Status CODEINE RxNorm: 2670 05/25/2016 No Inactive Date Active ciprofloxacin RxNorm: 03294 12/16/2014 No Inactive Date Active MORPHINE SULFATE [...] (vit B-12) 1,000 mcg/mL injection solution RxNorm: 430441 Milliliter(s) Inj 11/08/2018 11/08/2018 Inactive cyanocobalamin (vit B-12) 1,000 mcg/mL injection solution RxNorm: 110737 Milliliter(s) Inj 10/23/2018 10/23/2018 Inactive cyanocobalamin (vit B-12) 1,000 mcg/mL injection solution RxNorm: 241638 Milliliter(s) Inj 10/10/2018 10/10/2018 Inactive Flonase Allergy Relief 50 mcg/actuation nasal spray,suspension RxNorm: 9541994 [place] 1 [place] NASAL BID 10/08/2018 04/05/2019 Active cyanocobalamin (vit B-12) 1,000 mcg/mL injection solution RxNorm: 022184 Milliliter(s) Inj 09/27/2018 09/27/2018 Inactive levothyroxine 137 mcg tablet RxNorm: 263879 1 Tablet(s) PO daily 09/12/2018 03/10/2019 Active levothyroxine 137 mcg tablet RxNorm: 811580 1 Tablet(s) PO daily 09/12/2018 09/11/2018 Inactive cyanocobalamin (vit B-12) 1,000 mcg/mL injection solution RxNorm: 534118 Milliliter(s) Inj 09/11/2018 09/11/2018 Inactive levothyroxine 125 mcg tablet RxNorm: 888831 TAKE 1 TABLET BY MOUTH EVERY DAY 09/10/2018 09/11/2018 Inactive Generic For:SYNTHROID 125MCG TAB 09/10/2018 12:06:52 PM cyanocobalamin (vit B-12) 1,000 mcg/mL injection solution RxNorm: 588938 Milliliter(s) Inj 08/29/2018 08/29/2018 Inactive alprazolam 0.25 mg tablet RxNorm: 902527 1 Tablet(s) PO BID 08/21/2018 02/16/2019 Active hydrocodone 5 mg-acetaminophen 325 mg tablet RxNorm: 694175 1-2 Tablet(s) PO Q6 as needed for pain to use for severe pain only 08/20/2018 09/18/2018 Inactive albuterol sulfate 2.5 mg/3 mL (0.083 %) solution for nebulization RxNorm: 585963 3 Milliliter(s) INH Q6 PRN 08/15/2018 No Stop Date Active Aricept 10 mg tablet RxNorm: 868025 1 Tablet(s) PO daily 08/15/2018 08/09/2019 Active liothyronine 5 mcg tablet RxNorm: 076683 Tablet(s) TAKE 1 TABLET BY MOUTH TWICE DAILY 08/15/2018 02/10/2019 Active cyanocobalamin (vit B-12) 1,000 mcg/mL injection solution RxNorm: 803783 Milliliter(s) Inj 08/15/2018 08/15/2018 Inactive Kenalog 40 mg/mL suspension for injection RxNorm: 9555647 Milliliter(s) Inj 08/15/2018 08/15/2018 Inactive doxycycline hyclate 100 mg capsule RxNorm: 6356257 1 Capsule(s) PO BID 08/15/2018 08/24/2018 Inactive cyanocobalamin (vit B-12) 1,000 mcg/mL injection solution RxNorm: 241939 Milliliter(s) Inj 08/01/2018 08/01/2018 Inactive cyanocobalamin (vit B-12) 1,000 mcg/mL injection solution RxNorm: 545509 Milliliter(s) Inj 07/19/2018 07/19/2018 Inactive hydrocodone 5 mg-acetaminophen 325 mg tablet RxNorm: 749264 1-2 Tablet(s) PO Q6 as needed for pain 07/18/2018 08/15/2018 Inactive betamethasone valerate 0.1 % topical ointment RxNorm: 920105 1 TOP BID 07/04/2018 07/03/2018 Inactive applying to skin under nose x 10 days cyanocobalamin (vit B-12) 1,000 mcg/mL injection solution RxNorm: 655583 Milliliter(s) Inj 07/04/2018 07/04/2018 Inactive betamethasone valerate 0.1 % topical ointment RxNorm: 939089 1 TOP BID 07/04/2018 07/13/2018 Inactive applying to skin under nose x 10 days Aricept 10 mg tablet RxNorm: 932415 Tablet(s) 1 Tablet(s) PO daily 06/25/2018 08/14/2018 Inactive cyanocobalamin (vit B-12) 1,000 mcg/mL injection solution RxNorm: 311545 Milliliter(s) Inj 06/20/2018 06/20/2018 Inactive hydrocodone 5 mg-acetaminophen 325 mg tablet RxNorm: 735141 1-2 Tablet(s) PO Q6 as needed for pain 06/20/2018 07/17/2018 Inactive Flonase Allergy Relief 50 mcg/actuation nasal spray,suspension RxNorm: 8054858 [place] 1 [place] NASAL BID 06/20/2018 10/07/2018 Inactive cyanocobalamin (vit B-12) 1,000 mcg/mL injection solution RxNorm: 608969 Milliliter(s) Inj 06/06/2018 06/06/2018 Inactive alprazolam 0.25 mg tablet RxNorm: 435933 1 Tablet(s) PO BID 05/25/2018 08/21/2018 Inactive hydrocodone 5 mg-acetaminophen 325 mg tablet RxNorm: 427525 1-2 Tablet(s) PO Q6 as needed for pain 05/24/2018 06/19/2018 Inactive cyanocobalamin (vit B-12) 1,000 mcg/mL injection solution RxNorm: 062103 Milliliter(s) Inj 05/24/2018 05/24/2018 Inactive cyanocobalamin (vit B-12) 1,000 mcg/mL injection solution RxNorm: 698157 Milliliter(s) Inj 05/09/2018 05/09/2018 Inactive Claritin 10 mg tablet RxNorm: 599214 TAKE 1 TABLET BY MOUTH ONCE DAILY 05/08/2018 05/02/2019 Active Generic For:CLARITIN 10MG 05/07/2018 9:13:47 AM cyanocobalamin (vit B-12) 1,000 mcg/mL injection solution RxNorm: 372812 INJECT ONE 1 ML EVERY TWO WEEKS 05/03/2018 04/03/2019 Active 05/03/2018 9:13:42 AM Mobic 15 mg tablet RxNorm: 502362 Tablet(s) 1 Tablet(s) PO daily 04/26/2018 04/20/2019 Active buspirone 15 mg tablet RxNorm: 215200 Tablet(s) TAKE 1 TABLET BY MOUTH TWICE DAILY 04/26/2018 04/20/2019 Active Generic For:BUSPAR 15MG 05/31/2017 9:19:20 AM Norvasc 5 mg tablet RxNorm: 593525 Tablet(s) 1 Tablet(s) PO daily 04/26/2018 04/20/2019 Active cyanocobalamin (vit B-12) 1,000 mcg/mL injection solution RxNorm: 041552 Milliliter(s) Inj 04/26/2018 04/26/2018 Inactive hydrocodone 5 mg-acetaminophen 325 mg tablet RxNorm: 919028 1-2 Tablet(s) PO Q6 as needed for pain 04/25/2018 05/23/2018 Inactive cyanocobalamin (vit B-12) 1,000 mcg/mL injection solution RxNorm: 034307 Milliliter(s) Inj 04/12/2018 04/12/2018 Inactive Topamax 25 mg tablet RxNorm: 863297 1 Tablet(s) PO BID 04/09/2018 05/02/2018 Inactive Generic For:TOPAMAX 25MG 12/06/2016 9:15:13 AM Zoloft 50 mg tablet RxNorm: 831426 TAKE 1 TABLET BY MOUTH ONCE DAILY 04/04/2018 12/29/2018 Active Generic For:ZOLOFT 50MG 04/04/2018 9:13:25 AM cyanocobalamin (vit B-12) 1,000 mcg/mL injection solution RxNorm: 116782 Milliliter(s) Inj 03/30/2018 03/30/2018 Inactive levothyroxine 125 mcg tablet RxNorm: 842869 TAKE 1 TABLET BY MOUTH EVERY DAY 03/26/2018 09/09/2018 Inactive Generic For:SYNTHROID 125MCG TAB 03/26/2018 9:15:59 AM liothyronine 5 mcg tablet RxNorm: 283769 TAKE 1 TABLET BY MOUTH TWICE DAILY 03/26/2018 08/14/2018 Inactive Generic For:CYTOMEL 5MCG 03/26/2018 9:15:54 AM hydrocodone 5 mg-acetaminophen 325 mg tablet RxNorm: 008993 1-2 Tablet(s) PO Q6 as needed for pain 03/19/2018 04/17/2018 Inactive cyanocobalamin (vit B-12) 1,000 mcg/mL injection solution RxNorm: 630774 Milliliter(s) Inj 03/16/2018 03/16/2018 Inactive Flonase Allergy Relief 50 mcg/actuation nasal spray,suspension RxNorm: 8373111 1 [place] NASAL BID 03/05/2018 06/19/2018 Inactive cyanocobalamin (vit B-12) 1,000 mcg/mL injection solution RxNorm: 546528 Milliliter(s) Inj 03/02/2018 03/02/2018 Inactive alprazolam 0.25 mg tablet RxNorm: 949578 1 Tablet(s) PO BID 02/28/2018 05/27/2018 Inactive cyanocobalamin (vit B-12) 1,000 mcg/mL injection solution RxNorm: 392412 Milliliter(s) Inj 02/08/2018 02/08/2018 Inactive cyanocobalamin (vit B-12) 1,000 mcg/mL injection solution RxNorm: 971394 Milliliter(s) Inj 01/24/2018 01/24/2018 Inactive albuterol sulfate 2.5 mg/3 mL (0.083 %) solution for nebulization RxNorm: 391943 3 Milliliter(s) INH Q6 PRN 01/24/2018 05/02/2018 Inactive Claritin 10 mg tablet RxNorm: 999148 1 Tablet(s) PO daily 01/15/2018 05/07/2018 Inactive cyanocobalamin (vit B-12) 1,000 mcg/mL injection solution RxNorm: 872111 Milliliter(s) Inj 01/10/2018 01/10/2018 Inactive hydrocodone 5 mg-acetaminophen 325 mg tablet RxNorm: 517182 1-2 Tablet(s) PO Q6 as needed for pain 01/09/2018 02/07/2018 Inactive cyanocobalamin (vit B-12) 1,000 mcg/mL injection solution RxNorm: 902771 Milliliter(s) Inj 12/27/2017 12/27/2017 Inactive cyanocobalamin (vit B-12) 1,000 mcg/mL injection solution RxNorm: 884705 1 Milliliter(s) Inj 12/12/2017 12/12/2017 Inactive Zofran ODT 4 mg disintegrating tablet RxNorm: 449571 1 Tablet(s) PO TID as needed 12/08/2017 12/09/2017 Inactive hydrocodone 2.5 mg-guaifenesin 200 mg/5 mL oral solution RxNorm: 362639 5 Milliliter(s) PO 12/04/2017 05/06/2018 Inactive doxycycline hyclate 100 mg capsule RxNorm: 4522635 1 Capsule(s) PO BID 12/04/2017 12/13/2017 Inactive cyanocobalamin (vit B-12) 1,000 mcg/mL injection solution RxNorm: 851261 Milliliter(s) Inj 12/01/2017 12/01/2017 Inactive Flonase Allergy Relief 50 mcg/actuation nasal spray,suspension RxNorm: 8148339 1 [place] NASAL BID 11/20/2017 2018 Inactive cyanocobalamin (vit B-12) 1,000 mcg/mL injection solution RxNorm: 729319 1 Milliliter(s) Inj 11/17/2017 11/17/2017 Inactive hydrocodone 5 mg-acetaminophen 325 mg tablet RxNorm: 226263 1-2 Tablet(s) PO Q6 as needed for pain 11/16/2017 12/15/2017 Inactive cyanocobalamin (vit B-12) 1,000 mcg/mL injection solution RxNorm: 998883 1 Milliliter(s) Inj 11/02/2017 11/02/2017 Inactive hydrocodone 5 mg-acetaminophen 325 mg tablet RxNorm: 103869 1-2 Tablet(s) PO Q6 as needed for pain 10/25/2017 11/15/2017 Inactive Claritin 10 mg tablet RxNorm: 121735 1 Tablet(s) PO daily 10/25/2017 11/19/2017 Inactive albuterol sulfate 2.5 mg/3 mL (0.083 %) solution for nebulization RxNorm: 742483 3 Milliliter(s) INH Q6 PRN 10/25/2017 01/23/2018 Inactive Claritin 10 mg tablet RxNorm: 753940 1 Tablet(s) PO daily 10/25/2017 10/24/2017 Inactive cyanocobalamin (vit B-12) 1,000 mcg/mL injection solution RxNorm: 092653 1 Milliliter(s) Inj 10/20/2017 10/20/2017 Inactive Zoloft 50 mg tablet RxNorm: 495029 TAKE 1 TABLET BY MOUTH ONCE DAILY 10/13/2017 04/03/2018 Inactive Generic For:ZOLOFT 50MG 10/13/2017 8:59:44 AM cyanocobalamin (vit B-12) 1,000 mcg/mL injection solution RxNorm: 313006 Milliliter(s) Inj 10/06/2017 10/06/2017 Inactive liothyronine 5 mcg tablet RxNorm: 543174 TAKE 1 TABLET BY MOUTH TWICE DAILY 10/03/2017 03/25/2018 Inactive Generic For:CYTOMEL 5MCG 10/03/2017 9:13:38 AM cyanocobalamin (vit B-12) 1,000 mcg/mL injection solution RxNorm: 992538 Milliliter(s) Inj 09/21/2017 09/21/2017 Inactive albuterol sulfate 2.5 mg/3 mL (0.083 %) solution for nebulization RxNorm: 262626 3 Milliliter(s) INH Q6 PRN 09/21/2017 10/24/2017 Inactive hydrocodone 5 mg-acetaminophen 325 mg tablet RxNorm: 833560 1-2 Tablet(s) PO Q6 as needed for pain 09/21/2017 10/20/2017 Inactive Kenalog 40 mg/mL suspension for injection RxNorm: 5423291 Milliliter(s) Inj 09/15/2017 09/15/2017 Inactive Keflex 500 mg capsule RxNorm: 898159 1 Capsule(s) PO TID 09/07/2017 09/16/2017 Inactive Please deliver to patient cyanocobalamin (vit B-12) 1,000 mcg/mL injection solution RxNorm: 942557 Milliliter(s) Inj 09/07/2017 09/07/2017 Inactive alprazolam 0.25 mg tablet RxNorm: 442402 1 Tablet(s) PO BID 09/06/2017 02/27/2018 Inactive Aricept 10 mg tablet RxNorm: 048080 1 Tablet(s) PO daily 09/06/2017 06/24/2018 Inactive hydrocodone 5 mg-acetaminophen 325 mg tablet RxNorm: 352677 1-2 Tablet(s) PO Q6 as needed for pain 08/24/2017 09/20/2017 Inactive cyanocobalamin (vit B-12) 1,000 mcg/mL injection solution RxNorm: 651291 Milliliter(s) Inj 08/24/2017 08/24/2017 Inactive Norvasc 5 mg tablet RxNorm: 604438 1 Tablet(s) PO daily 08/18/2017 04/25/2018 Inactive nystatin 100,000 unit/gram topical powder RxNorm: 252660 1 Gram(s) TOP QID 08/17/2017 08/26/2017 Inactive hydrocodone 5 mg-acetaminophen 325 mg tablet RxNorm: 283879 1-2 Tablet(s) PO Q6 as needed for pain 07/25/2017 08/23/2017 Inactive Tamiflu 75 mg capsule RxNorm: 443652 1 Capsule(s) PO BID 07/24/2017 12/11/2017 Inactive nystatin 100,000 unit/gram topical powder RxNorm: 599317 1 Gram(s) TOP QID 07/14/2017 07/22/2017 Inactive levothyroxine 125 mcg tablet RxNorm: 514968 Tablet(s) 1 Tablet(s) PO daily 07/10/2017 01/05/2018 Inactive nystatin 100,000 unit/gram topical powder RxNorm: 275692 1 Gram(s) TOP QID 07/06/2017 07/13/2017 Inactive cyanocobalamin (vit B-12) 1,000 mcg/mL injection solution RxNorm: 868419 Milliliter(s) Inj 07/06/2017 07/06/2017 Inactive Kenalog 40 mg/mL suspension for injection RxNorm: 6438107 1 Milliliter(s) Inj 06/20/2017 06/20/2017 Inactive doxycycline hyclate 100 mg capsule RxNorm: 0541347 1 Capsule(s) PO BID 06/20/2017 06/26/2017 Inactive cyanocobalamin (vit B-12) 1,000 mcg/mL injection solution RxNorm: 494719 Milliliter(s) Inj 06/20/2017 06/20/2017 Inactive Keflex 500 mg capsule RxNorm: 574747 1 Capsule(s) PO TID 06/14/2017 06/23/2017 Inactive Please deliver to patient Mobic 15 mg tablet RxNorm: 848935 1 Tablet(s) PO daily 06/14/2017 04/25/2018 Inactive cyanocobalamin (vit B-12) 1,000 mcg/mL injection solution RxNorm: 708555 Milliliter(s) Inj 06/05/2017 06/05/2017 Inactive buspirone 15 mg tablet RxNorm: 451042 TAKE 1 TABLET BY MOUTH TWICE DAILY 05/31/2017 04/25/2018 Inactive Generic For:BUSPAR 15MG 05/31/2017 9:19:20 AM cyanocobalamin (vit B-12) 1,000 mcg/mL injection solution RxNorm: 898421 Milliliter(s) Inj 05/25/2017 05/25/2017 Inactive hydrocodone 5 mg-acetaminophen 325 mg tablet RxNorm: 447393 1-2 Tablet(s) PO Q6 as needed for pain 05/25/2017 06/23/2017 Inactive amiodarone 200 mg tablet RxNorm: 887832 1/2 Tablet(s) PO daily 05/22/2017 No Stop Date Active cardiology decreased to 100mg daily cyanocobalamin (vit B-12) 1,000 mcg/mL injection solution RxNorm: 467778 Milliliter(s) Inj 05/16/2017 05/16/2017 Inactive Zofran ODT 4 mg disintegrating tablet RxNorm: 944056 1 Tablet(s) PO TID as needed 05/03/2017 05/04/2017 Inactive hydrocodone 5 mg-acetaminophen 325 mg tablet RxNorm: 150434 1-2 Tablet(s) PO Q6 as needed for pain 05/01/2017 05/05/2017 Inactive cyanocobalamin (vit B-12) 1,000 mcg/mL injection solution RxNorm: 182345 1 Milliliter(s) Inj 05/01/2017 05/01/2017 Inactive cyanocobalamin (vit B-12) 1,000 mcg/mL injection solution RxNorm: 136524 INJECT ONE 1 ML EVERY TWO WEEKS 04/26/2017 12/04/2018 Active 04/26/2017 9:08:52 AM Zoloft 50 mg tablet RxNorm: 727367 Tablet(s) TAKE 1 TABLET BY MOUTH DAILY 04/25/2017 10/12/2017 Inactive Generic For:ZOLOFT 50MG cyanocobalamin (vit B-12) 1,000 mcg/mL injection solution RxNorm: 732331 Milliliter(s) Inj 04/18/2017 04/18/2017 Inactive liothyronine 5 mcg tablet RxNorm: 274457 1 Tablet(s) PO BID 04/13/2017 10/02/2017 Inactive cyanocobalamin (vit B-12) 1,000 mcg/mL injection solution RxNorm: 969140 Milliliter(s) Inj 04/06/2017 04/06/2017 Inactive hydrocodone 5 mg-acetaminophen 325 mg tablet RxNorm: 648583 1-2 Tablet(s) PO Q6 as needed for pain 04/06/2017 04/10/2017 Inactive cyanocobalamin (vit B-12) 1,000 mcg/mL injection solution RxNorm: 225586 Milliliter(s) Inj 03/22/2017 03/22/2017 Inactive alprazolam 0.25 mg tablet RxNorm: 452516 1 Tablet(s) PO BID 03/17/2017 12/11/2017 Inactive alprazolam 0.25 mg tablet RxNorm: 743543 1 Tablet(s) PO BID 03/16/2017 09/05/2017 Inactive hydrocodone 5 mg-acetaminophen 325 mg tablet RxNorm: 232296 1-2 Tablet(s) PO Q6 as needed for pain 03/09/2017 03/13/2017 Inactive cyanocobalamin (vit B-12) 1,000 mcg/mL injection solution RxNorm: 810144 Milliliter(s) Inj 03/09/2017 03/09/2017 Inactive cyanocobalamin (vit B-12) 1,000 mcg/mL injection solution RxNorm: 945717 Milliliter(s) Inj 02/23/2017 02/23/2017 Inactive cyanocobalamin (vit B-12) 1,000 mcg/mL injection solution RxNorm: 758184 Milliliter(s) Inj 02/09/2017 02/09/2017 Inactive hydrocodone 5 mg-acetaminophen 325 mg tablet RxNorm: 955309 1-2 Tablet(s) PO Q6 as needed for pain 02/08/2017 02/12/2017 Inactive Topamax 25 mg tablet RxNorm: 625688 1 Tablet(s) PO BID 01/23/2017 05/22/2017 Inactive Generic For:TOPAMAX 25MG 12/06/2016 9:15:13 AM cyanocobalamin (vit B-12) 1,000 mcg/mL injection solution RxNorm: 509281 Milliliter(s) Inj 01/23/2017 01/23/2017 Inactive cyanocobalamin (vit B-12) 1,000 mcg/mL injection solution RxNorm: 347415 Milliliter(s) Inj 01/10/2017 01/10/2017 Inactive hydrocodone 5 mg-acetaminophen 325 mg tablet RxNorm: 011603 1-2 Tablet(s) PO Q6 as needed for pain 01/09/2017 01/13/2017 Inactive cyanocobalamin (vit B-12) 1,000 mcg/mL injection solution RxNorm: 606968 1 Milliliter(s) Inj 12/28/2016 12/28/2016 Inactive cyanocobalamin (vit B-12) 1,000 mcg/mL injection solution RxNorm: 813396 Milliliter(s) Inj 12/14/2016 12/14/2016 Inactive buspirone 15 mg tablet RxNorm: 249958 1 Tablet(s) PO BID 12/12/2016 05/30/2017 Inactive hydrocodone 5 mg-acetaminophen 325 mg tablet RxNorm: 294807 1-2 Tablet(s) PO Q6 as needed for pain 12/08/2016 12/12/2016 Inactive Topamax 25 mg tablet RxNorm: 012750 TAKE 1 TABLET BY MOUTH EVERY DAY AT BEDTIME 12/06/2016 01/22/2017 Inactive Generic For:TOPAMAX 25MG 12/06/2016 9:15:13 AM Lac-Hydrin Five 5 % lotion RxNorm: 066802 1 Gram(s) TOP daily 12/02/2016 05/02/2018 Inactive cyanocobalamin (vit B-12) 1,000 mcg/mL injection solution RxNorm: 849027 Milliliter(s) Inj 11/24/2016 11/24/2016 Inactive Ceftin 500 mg tablet RxNorm: 789660 1 Tablet(s) PO BID 11/11/2016 06/13/2017 Inactive Cipro 500 mg tablet RxNorm: 718134 1 Tablet(s) PO BID 11/11/2016 11/10/2016 Inactive Cipro 500 mg tablet RxNorm: 580961 1 Tablet(s) PO BID 11/11/2016 11/11/2016 Inactive cyanocobalamin (vit B-12) 1,000 mcg/mL injection solution RxNorm: 711045 1 Milliliter(s) Inj 11/07/2016 11/07/2016 Inactive hydrocodone 5 mg-acetaminophen 325 mg tablet RxNorm: 188358 1-2 Tablet(s) PO Q6 as needed for pain 11/02/2016 11/06/2016 Inactive cyanocobalamin (vit B-12) 1,000 mcg/mL injection solution RxNorm: 083656 Milliliter(s) Inj 10/24/2016 10/24/2016 Inactive levothyroxine 125 mcg tablet RxNorm: 754501 Tablet(s) 1 Tablet(s) PO daily 10/24/2016 04/21/2017 Inactive liothyronine 5 mcg tablet RxNorm: 733967 1 Tablet(s) PO BID 10/24/2016 04/12/2017 Inactive hydrocodone 5 mg-acetaminophen 325 mg tablet RxNorm: 095142 1-2 Tablet(s) PO Q6 as needed for pain 10/17/2016 10/21/2016 Inactive Keflex 500 mg capsule RxNorm: 222937 1 Capsule(s) PO TID 10/07/2016 10/06/2016 Inactive Keflex 500 mg capsule RxNorm: 039802 1 Capsule(s) PO TID 10/07/2016 10/16/2016 Inactive Please deliver to patient cyanocobalamin (vit B-12) 1,000 mcg/mL injection solution RxNorm: 230200 1 Milliliter(s) Inj 09/29/2016 09/29/2016 Inactive alprazolam 0.25 mg tablet RxNorm: 618356 1 Tablet(s) PO BID 09/20/2016 03/16/2017 Inactive Cozaar 100 mg tablet RxNorm: 588103 1 Tablet(s) PO daily 09/14/2016 No Stop Date Active metoprolol tartrate 50 mg tablet RxNorm: 477351 1/2 Tablet(s) PO BID 09/14/2016 12/12/2016 Inactive Zoloft 50 mg tablet RxNorm: 511052 Tablet(s) TAKE 1 TABLET BY MOUTH DAILY 09/14/2016 03/12/2017 Inactive Generic For:ZOLOFT 50MG liothyronine 5 mcg tablet RxNorm: 214708 1 Tablet(s) PO BID 09/14/2016 10/23/2016 Inactive Calmoseptine 0.44 %-20.6 % topical ointment RxNorm: 464602 1 Application TOP BID and as needed to sore on buttocks 09/07/2016 No Stop Date Active cyanocobalamin (vit B-12) 1,000 mcg/mL injection solution RxNorm: 555373 Milliliter(s) Inj 08/29/2016 08/29/2016 Inactive hydrocodone 5 mg-acetaminophen 325 mg tablet RxNorm: 570009 1-2 Tablet(s) PO Q6 as needed for pain 08/29/2016 10/16/2016 Inactive levothyroxine 125 mcg tablet RxNorm: 243154 1 Tablet(s) PO daily 08/25/2016 10/23/2016 Inactive Topamax 25 mg tablet RxNorm: 524471 TAKE 1 TABLET BY MOUTH EVERY DAY AT BEDTIME 08/17/2016 12/05/2016 Inactive Generic For:TOPAMAX 25MG 08/17/2016 2:14:37 PM hydrocodone 5 mg-acetaminophen 325 mg tablet RxNorm: 592258 1-2 Tablet(s) PO Q6 as needed for pain 08/11/2016 08/28/2016 Inactive hydrocodone 5 mg-acetaminophen 325 mg tablet RxNorm: 235974 1 -2 Tablet(s) PO Q6 as needed for pain 08/11/2016 08/18/2016 Inactive hydrocodone 5 mg-acetaminophen 325 mg tablet RxNorm: 266231 1 Tablet(s) PO Q6 as needed for pain 08/05/2016 08/10/2016 Inactive cyanocobalamin (vit B-12) 1,000 mcg/mL injection solution RxNorm: 618426 Milliliter(s) Inj 08/04/2016 08/04/2016 Inactive Norvasc 10 mg tablet RxNorm: 589193 1 Tablet(s) PO daily 07/26/2016 07/20/2017 Inactive alprazolam 0.25 mg tablet RxNorm: 353513 1 Tablet(s) PO QHS 07/21/2016 09/19/2016 Inactive Norvasc 5 mg tablet RxNorm: 596971 1 Tablet(s) PO daily 07/21/2016 07/25/2016 Inactive levothyroxine 125 mcg tablet RxNorm: 907104 1 Tablet(s) PO daily 07/21/2016 12/11/2017 Inactive cyanocobalamin (vit B-12) 1,000 mcg/mL injection solution RxNorm: 818102 Milliliter(s) Inj 07/21/2016 07/21/2016 Inactive Zoloft 50 mg tablet RxNorm: 212344 Tablet(s) TAKE 1 TABLET BY MOUTH DAILY 07/21/2016 09/13/2016 Inactive Generic For:ZOLOFT 50MG cyanocobalamin (vit B-12) 1,000 mcg/mL injection solution RxNorm: 465012 1 Milliliter(s) Inj 07/05/2016 07/05/2016 Inactive cyanocobalamin (vit B-12) 1,000 mcg/mL injection solution RxNorm: 588321 1 Milliliter(s) Inj 06/22/2016 06/22/2016 Inactive cyanocobalamin (vit B-12) 1,000 mcg/mL injection solution RxNorm: 364863 Milliliter(s) Inj 06/09/2016 06/09/2016 Inactive Aricept 10 mg tablet RxNorm: 981121 1 Tablet(s) PO daily 05/27/2016 05/21/2017 Inactive Mobic 15 mg tablet RxNorm: 544627 1 Tablet(s) PO daily 05/27/2016 05/21/2017 Inactive levothyroxine 125 mcg tablet RxNorm: 960513 1 Tablet(s) PO daily 05/25/2016 07/20/2016 Inactive cyanocobalamin (vit B-12) 1,000 mcg/mL injection solution RxNorm: 117379 1 Milliliter(s) Inj 05/25/2016 05/25/2016 Inactive doxycycline hyclate 100 mg capsule RxNorm: 8994392 1 Capsule(s) PO BID 05/16/2016 05/15/2016 Inactive doxycycline hyclate 100 mg capsule RxNorm: 7538977 1 Capsule(s) PO BID 05/16/2016 05/22/2016 Inactive cyanocobalamin (vit B-12) 1,000 mcg/mL injection solution RxNorm: 668742 Milliliter(s) Inj 05/10/2016 05/10/2016 Inactive cyanocobalamin (vit B-12) 1,000 mcg/mL injection solution RxNorm: 184269 Milliliter(s) Inj 04/26/2016 04/26/2016 Inactive Topamax 25 mg tablet RxNorm: 735762 1 Tablet(s) PO QPM 04/22/2016 08/16/2016 Inactive cyanocobalamin (vit B-12) 1,000 mcg/mL injection solution RxNorm: 715887 Milliliter(s) 1 Milliliter(s) Inj [id number] 04/11/2016 12/31/2017 Inactive liothyronine 5 mcg tablet RxNorm: 056942 1 Tablet(s) PO BID 04/11/2016 09/13/2016 Inactive cyanocobalamin (vit B-12) 1,000 mcg/mL injection solution RxNorm: 081557 Milliliter(s) Inj 04/11/2016 04/11/2016 Inactive cyanocobalamin (vit B-12) 1,000 mcg/mL injection solution RxNorm: 494854 Milliliter(s) Inj 03/31/2016 03/31/2016 Inactive cyanocobalamin (vit B-12) 1,000 mcg/mL injection solution RxNorm: 898366 1 Milliliter(s) Inj 03/15/2016 03/15/2016 Inactive levothyroxine 125 mcg tablet RxNorm: 994849 1 Tablet(s) PO daily 2016 03/03/2016 Inactive levothyroxine 125 mcg tablet RxNorm: 613570 1 Tablet(s) PO daily 2016 05/24/2016 Inactive cyanocobalamin (vit B-12) 1,000 mcg/mL injection solution RxNorm: 885712 Milliliter(s) Inj 02/25/2016 02/25/2016 Inactive cyanocobalamin (vit B-12) 1,000 mcg/mL injection solution RxNorm: 714461 1 Milliliter(s) Inj 02/02/2016 02/02/2016 Inactive sucralfate 1 gram tablet RxNorm: 963415 1 Tablet(s) PO QHS 01/25/2016 No Stop Date Active amiodarone 200 mg tablet RxNorm: 126622 1/2 Tablet(s) PO BID 01/25/2016 05/21/2017 Inactive cyanocobalamin (vit B-12) 1,000 mcg/mL injection solution RxNorm: 250570 Milliliter(s) Inj 01/18/2016 01/18/2016 Inactive cyanocobalamin (vit B-12) 1,000 mcg/mL injection solution RxNorm: 776260 Milliliter(s) Inj 12/29/2015 12/29/2015 Inactive Topamax 25 mg tablet RxNorm: 112906 1 Tablet(s) PO QPM 12/08/2015 04/05/2016 Inactive cyanocobalamin (vit B-12) 1,000 mcg/mL injection solution RxNorm: 029351 Milliliter(s) Inj 12/08/2015 12/08/2015 Inactive Bactrim DS 800 mg-160 mg tablet RxNorm: 797778 1 Tablet(s) PO BID 11/23/2015 11/22/2015 Inactive cyanocobalamin (vit B-12) 1,000 mcg/mL injection solution RxNorm: 376687 Milliliter(s) Inj 11/23/2015 11/23/2015 Inactive Bactrim DS 800 mg-160 mg tablet RxNorm: 619757 1 Tablet(s) PO BID 11/23/2015 11/29/2015 Inactive cyanocobalamin (vit B-12) 1,000 mcg/mL injection solution RxNorm: 676642 Milliliter(s) Inj 11/11/2015 11/11/2015 Inactive amoxicillin 500 mg capsule RxNorm: 680361 1 Capsule(s) PO TID 11/10/2015 11/19/2015 Inactive Zithromax Z-Henrique 250 mg tablet RxNorm: 243054 1 Tablet(s) PO UD 11/10/2015 01/24/2016 Inactive zpack x 1 amoxicillin 500 mg capsule RxNorm: 944860 1 Capsule(s) PO TID 11/10/2015 11/09/2015 Inactive cyanocobalamin (vit B-12) 1,000 mcg/mL injection solution RxNorm: 240311 1 Milliliter(s) Inj 10/29/2015 10/29/2015 Inactive [place] 3 capsule RxNorm: 1 Capsule(s) PO QAM , 2 Capsules at noon, 1 Capsule QHS 10/13/2015 No Stop Date Active potassium chloride ER 20 mEq tablet,extended release RxNorm: 638045 2 Tablet(s) PO daily at noon 10/13/2015 No Stop Date Active alprazolam 0.25 mg tablet RxNorm: 441839 1 Tablet(s) PO QHS 10/13/2015 07/20/2016 Inactive amiodarone 200 mg tablet RxNorm: 780822 1 Tablet(s) PO BID 10/13/2015 01/24/2016 Inactive cyanocobalamin (vit B-12) 1,000 mcg/mL injection solution RxNorm: 902620 1 Milliliter(s) Inj 10/12/2015 10/12/2015 Inactive Zofran 4 mg tablet RxNorm: 059404 1 Tablet(s) PO daily as needed 10/07/2015 05/24/2016 Inactive Zoloft 50 mg tablet RxNorm: 741043 TAKE 1 TABLET BY MOUTH DAILY 10/05/2015 05/01/2016 Inactive Generic For:ZOLOFT 50MG cyanocobalamin (vit B-12) 1,000 mcg/mL injection solution RxNorm: 679644 1 Milliliter(s) Inj 09/29/2015 09/29/2015 Inactive cyanocobalamin (vit B-12) 1,000 mcg/mL injection solution RxNorm: 071647 1 Milliliter(s) Inj 09/17/2015 09/17/2015 Inactive Norvasc 5 mg tablet RxNorm: 392155 1 Tablet(s) PO daily 09/17/2015 07/20/2016 Inactive liothyronine 5 mcg tablet RxNorm: 645876 1 Tablet(s) PO BID 09/17/2015 03/14/2016 Inactive Zoloft 50 mg tablet RxNorm: 790795 1 Tablet(s) PO daily 09/17/2015 10/04/2015 Inactive buspirone 15 mg tablet RxNorm: 305916 1 Tablet(s) PO BID 09/17/2015 09/10/2016 Inactive buspirone 15 mg tablet RxNorm: 277176 1 Tablet(s) PO BID 09/14/2015 09/16/2015 Inactive Topamax 25 mg tablet RxNorm: 716041 1 Tablet(s) PO QPM 09/03/2015 12/07/2015 Inactive cyanocobalamin (vit B-12) 1,000 mcg/mL injection solution RxNorm: 687948 1 Milliliter(s) Inj 09/03/2015 09/03/2015 Inactive cyanocobalamin (vit B-12) 1,000 mcg/mL injection solution RxNorm: 852785 Milliliter(s) Inj 08/17/2015 08/17/2015 Inactive cyanocobalamin (vit B-12) 1,000 mcg/mL injection solution RxNorm: 972048 Milliliter(s) Inj 08/06/2015 08/06/2015 Inactive levothyroxine 150 mcg tablet RxNorm: 448452 1 Tablet(s) PO daily 07/22/2015 03/03/2016 Inactive Aricept 10 mg tablet RxNorm: 756887 1 Tablet(s) PO daily 07/22/2015 05/26/2016 Inactive Mobic 15 mg tablet RxNorm: 502446 1 Tablet(s) PO daily 07/22/2015 05/26/2016 Inactive cyanocobalamin (vit B-12) 1,000 mcg/mL injection solution RxNorm: 965102 Milliliter(s) Inj 07/22/2015 07/22/2015 Inactive liothyronine 5 mcg tablet RxNorm: 335470 1 Tablet(s) PO BID 07/22/2015 09/16/2015 Inactive cyanocobalamin (vit B-12) 1,000 mcg/mL injection solution RxNorm: 434820 Milliliter(s) Inj 07/08/2015 07/08/2015 Inactive cyanocobalamin (vit B-12) 1,000 mcg/mL injection solution RxNorm: 311087 Milliliter(s) Inj 06/23/2015 06/23/2015 Inactive cyanocobalamin (vit B-12) 1,000 mcg/mL injection solution RxNorm: 632257 1 Milliliter(s) Inj 06/08/2015 06/08/2015 Inactive cyanocobalamin (vit B-12) 1,000 mcg/mL injection solution RxNorm: 329641 Milliliter(s) Inj 05/27/2015 05/27/2015 Inactive Aricept 10 mg tablet RxNorm: 334192 1 Tablet(s) PO daily 05/20/2015 07/21/2015 Inactive Zofran 4 mg tablet RxNorm: 915062 1 Tablet(s) PO daily as needed 05/20/2015 06/18/2015 Inactive alprazolam 0.25 mg tablet RxNorm: 131744 1 Tablet(s) PO BID 05/20/2015 10/12/2015 Inactive Mobic 15 mg tablet RxNorm: 029167 1 Tablet(s) PO daily 05/20/2015 07/21/2015 Inactive tramadol ER 100 mg tablet,extended release 24 hr RxNorm: 253237 1 Tablet(s) PO Q6 as needed 05/13/2015 No Stop Date Active cyanocobalamin (vit B-12) 1,000 mcg/mL injection solution RxNorm: 437811 1 Milliliter(s) Inj 05/12/2015 05/12/2015 Inactive Topamax 25 mg tablet RxNorm: 637322 1 Tablet(s) PO BID (start at one pill at bedtime x 1week then twice daily thereafter) 05/12/2015 09/02/2015 Inactive cyanocobalamin (vit B-12) 1,000 mcg/mL injection kit RxNorm: 610192 kit Inj 04/30/2015 04/30/2015 Inactive cyanocobalamin (vit B-12) 1,000 mcg/mL injection solution RxNorm: 558971 Milliliter(s) Inj 04/16/2015 04/16/2015 Inactive levothyroxine 150 mcg tablet RxNorm: 809546 1 Tablet(s) PO daily 04/08/2015 07/21/2015 Inactive cyanocobalamin (vit B-12) 1,000 mcg/mL injection solution RxNorm: 267747 Milliliter(s) 1 Milliliter(s) Inj [id number] 04/08/2015 04/10/2016 Inactive Cytomel 5 mcg tablet RxNorm: 841754 1 Tablet(s) PO BID 04/08/2015 10/12/2015 Inactive Cytomel 5 mcg tablet RxNorm: 652209 1 Tablet(s) PO BID 04/07/2015 04/07/2015 Inactive Cytomel 5 mcg tablet RxNorm: 533187 1 Tablet(s) PO BID 04/07/2015 04/06/2015 Inactive cyanocobalamin (vit B-12) 1,000 mcg/mL injection solution RxNorm: 262908 Milliliter(s) Inj 04/02/2015 04/02/2015 Inactive cyanocobalamin (vit B-12) 1,000 mcg/mL injection solution RxNorm: 767212 Milliliter(s) Inj 03/18/2015 03/18/2015 Inactive cyanocobalamin (vit B-12) 1,000 mcg/mL injection solution RxNorm: 214895 Milliliter(s) 1 Milliliter(s) Inj [id number] 03/18/2015 04/07/2015 Inactive cyanocobalamin (vit B-12) 1,000 mcg/mL injection solution RxNorm: 346630 1 Milliliter(s) Inj [id number] 03/16/2015 03/17/2015 Inactive cyanocobalamin (vit B-12) 1,000 mcg/mL injection solution RxNorm: 917640 Milliliter(s) Inj 03/03/2015 03/03/2015 Inactive cyanocobalamin (vit B-12) 1,000 mcg/mL injection solution RxNorm: 478977 Milliliter(s) Inj 02/18/2015 02/18/2015 Inactive cyanocobalamin (vit B-12) 1,000 mcg/mL injection solution RxNorm: 407515 Milliliter(s) Inj 02/04/2015 02/04/2015 Inactive cyanocobalamin (vit B-12) 1,000 mcg/mL injection solution RxNorm: 726788 Milliliter(s) Inj 01/22/2015 01/22/2015 Inactive Lac-Hydrin Five 5 % lotion RxNorm: 977669 1 TOP daily 01/13/2015 03/13/2015 Inactive Lac-Hydrin Five 5 % lotion RxNorm: 647498 1 TOP daily 01/13/2015 01/12/2015 Inactive cyanocobalamin (vit B-12) 1,000 mcg/mL injection solution RxNorm: 184413 Milliliter(s) Inj 01/08/2015 01/08/2015 Inactive cyanocobalamin (vit B-12) 1,000 mcg/mL injection solution RxNorm: 280999 Milliliter(s) Inj 12/25/2014 12/25/2014 Inactive levothyroxine 150 mcg tablet RxNorm: 266940 1 Tablet(s) PO daily 12/24/2014 04/07/2015 Inactive tramadol 50 mg tablet RxNorm: 660704 1-2 Tablet(s) PO Q6 as needed 12/17/2014 05/12/2015 Inactive alprazolam 0.25 mg tablet RxNorm: 534292 1 Tablet(s) PO BID 12/17/2014 04/15/2015 Inactive Pradaxa 150 mg capsule RxNorm: 7478245 1 Capsule(s) PO BID 12/16/2014 No Stop Date Active metoprolol tartrate 50 mg tablet RxNorm: 755313 1/2 Tablet(s) PO BID 12/16/2014 09/13/2016 Inactive buspirone 15 mg tablet RxNorm: 783725 1 Tablet(s) PO BID 12/16/2014 09/13/2015 Inactive cyanocobalamin (vit B-12) 1,000 mcg/mL injection solution RxNorm: 486309 1 Milliliter(s) Inj [id number] 12/16/2014 03/15/2015 Inactive cyanocobalamin (vit B-12) 1,000 mcg/mL injection solution RxNorm: 796315 1 Milliliter(s) Inj S4ddqra 12/16/2014 12/15/2014 Inactive sucralfate 1 gram tablet RxNorm: 715175 Tablet(s) PO QID 12/16/2014 12/10/2015 Inactive cyanocobalamin (vit B-12) 1,000 mcg/mL injection solution RxNorm: 048054 Milliliter(s) Inj 12/10/2014 12/10/2014 Inactive cyanocobalamin (vit B-12) 1,000 mcg/mL injection solution RxNorm: 121911 Milliliter(s) Inj 11/26/2014 11/26/2014 Inactive Zoloft 50 mg tablet RxNorm: 470053 1 Tablet(s) PO daily 11/24/2014 06/21/2015 Inactive Zoloft 50 mg tablet RxNorm: 545225 1 Tablet(s) PO daily 11/24/2014 11/23/2014 Inactive cyanocobalamin (vit B-12) 1,000 mcg/mL injection kit RxNorm: 465428 Milliliter(s) Inj 11/12/2014 11/12/2014 Inactive cyanocobalamin (vit B-12) 1,000 mcg/mL injection solution RxNorm: 725694 Milliliter(s) Inj 10/28/2014 10/28/2014 Inactive [SAVINGS FOR NON-COVERED DRUGS -- BIN:[id number], PCN: [id number], Group: [id number], ID# [id number], Questions: . THIS IS NOT INSURANCE.] promethazine oral RxNorm: 8745 oral No Start Date Active tramadol 50 mg tablet RxNorm: 370981 1 Tablet(s) PO TID No Start Date Active digoxin 125 mcg tablet RxNorm: 983373 Tablet(s) PO every other day No Start Date Active furosemide 40 mg tablet RxNorm: 376382 1 Tablet(s) PO daily No Start Date Active Vitamin D3 5,000 unit tablet RxNorm: 007973 1 Tablet(s) PO daily No Start Date Active erythromycin 250 mg capsule,delayed release RxNorm: 863736 1 Capsule(s) PO AC No Start Date Active Protonix 40 mg tablet,delayed release RxNorm: 155389 1 Tablet(s) PO BID No Start Date Active Cozaar 100 mg tablet RxNorm: 085285 1 Tablet(s) PO daily No Start Date 09/13/2016 Inactive sucralfate 1 gram tablet RxNorm: 048424 Tablet(s) PO QID No Start Date 12/15/2014 Inactive amiodarone 200 mg tablet RxNorm: 771742 2 Tablet(s) PO daily No Start Date 10/13/2015 Inactive buspirone 15 mg tablet RxNorm: 904196 1 Tablet(s) PO daily No Start Date 12/15/2014 Inactive potassium chloride ER 20 mEq tablet,extended release RxNorm: 267911 1 Tablet(s) PO daily No Start Date 10/12/2015 Inactive Prilosec 40 mg capsule,delayed release RxNorm: 079863 1 Capsule(s) PO daily No Start Date 09/02/2015 Inactive [place] 3 capsule RxNorm: Capsule(s) PO No Start Date 10/12/2015 Inactive alprazolam 0.25 mg tablet RxNorm: 951198 Tablet(s) PO QHS No Start Date 12/16/2014 Inactive levothyroxine 125 mcg tablet RxNorm: 134489 1 Tablet(s) PO daily No Start Date 12/23/2014 Inactive liothyronine 5 mcg tablet RxNorm: 177709 1 Tablet(s) PO BID No Start Date 07/21/2015 Inactive Mobic 15 mg tablet RxNorm: 132487 Tablet(s) PO daily No Start Date 05/19/2015 Inactive Norvasc 5 mg tablet RxNorm: 143252 1 Tablet(s) PO daily No Start Date 09/16/2015 Inactive Zofran 4 mg tablet RxNorm: 584506 1 Tablet(s) PO daily as needed No Start Date 05/19/2015 Inactive Tamiflu 75 mg capsule RxNorm: 851507 1 Capsule(s) PO BID No Start Date 07/23/2017 Inactive tramadol 50 mg tablet RxNorm: 536043 1 Tablet(s) PO daily as needed No Start Date 12/16/2014 Inactive amiodarone 200 mg tablet RxNorm: 265184 1 Tablet(s) PO daily No Start Date 10/12/2015 Inactive Zofran ODT 4 mg disintegrating tablet RxNorm: 071303 1 Tablet(s) PO TID as needed No Start Date 05/02/2017 Inactive albuterol sulfate 2.5 mg/3 mL (0.083 %) solution for nebulization RxNorm: 227803 3 Milliliter(s) INH Q6 PRN No Start Date 09/20/2017 Inactive meclizine 25 mg tablet RxNorm: 700119 Tablet(s) PO as needed No Start Date 05/24/2016 Inactive Pradaxa 150 mg capsule RxNorm: 1494652 1 Capsule(s) PO daily No Start Date 12/15/2014 Inactive metoprolol tartrate 50 mg tablet RxNorm: 799072 1/2 Tablet(s) PO No Start Date 12/15/2014 Inactive Aricept 10 mg tablet RxNorm: 832710 Tablet(s) PO daily No Start Date 05/19/2015 Inactive Calmoseptine 0.44 %-20.6 % topical ointment RxNorm: 072719 1 Application TOP BID and as needed to sore on buttocks No Start Date 09/06/2016 Inactive Zithromax Z-Henrique 250 mg tablet RxNorm: 777210 1 Tablet(s) PO UD No Start Date 11/09/2015 Inactive zpack x 1 Medication Administered Medication Codes Instructions Start Date Status cyanocobalamin (vit B-12) 1,000 mcg/mL injection solution RxNorm: 872284 Milliliter 11/08/2018 Active cyanocobalamin (vit B-12) 1,000 mcg/mL injection solution RxNorm: 272398 Milliliter 10/23/2018 No longer Active cyanocobalamin (vit B-12) 1,000 mcg/mL injection solution RxNorm: 202810 Milliliter 10/10/2018 No longer Active cyanocobalamin (vit B-12) 1,000 mcg/mL injection solution RxNorm: 356363 Milliliter 09/27/2018 No longer Active cyanocobalamin (vit B-12) 1,000 mcg/mL injection solution RxNorm: 383105 Milliliter 09/11/2018 No longer Active cyanocobalamin (vit B-12) 1,000 mcg/mL injection solution RxNorm: 783854 Milliliter 08/29/2018 No longer Active cyanocobalamin (vit B-12) 1,000 mcg/mL injection solution RxNorm: 939115 Milliliter 08/15/2018 No longer Active Kenalog 40 mg/mL suspension for injection RxNorm: 7107482 Milliliter 08/15/2018 No longer Active cyanocobalamin (vit B-12) 1,000 mcg/mL injection solution RxNorm: 994640 Milliliter 08/01/2018 No longer Active cyanocobalamin (vit B-12) 1,000 mcg/mL injection solution RxNorm: 980105 Milliliter 07/19/2018 No longer Active cyanocobalamin (vit B-12) 1,000 mcg/mL injection solution RxNorm: 560633 Milliliter 07/04/2018 No longer Active cyanocobalamin (vit B-12) 1,000 mcg/mL injection solution RxNorm: 751778 Milliliter 06/20/2018 No longer Active cyanocobalamin (vit B-12) 1,000 mcg/mL injection solution RxNorm: 894559 Milliliter 06/06/2018 No longer Active cyanocobalamin (vit B-12) 1,000 mcg/mL injection solution RxNorm: 611791 Milliliter 05/24/2018 No longer Active cyanocobalamin (vit B-12) 1,000 mcg/mL injection solution RxNorm: 892591 Milliliter 05/09/2018 No longer Active cyanocobalamin (vit B-12) 1,000 mcg/mL injection solution RxNorm: 052699 Milliliter 04/26/2018 No longer Active cyanocobalamin (vit B-12) 1,000 mcg/mL injection solution RxNorm: 825774 Milliliter 04/12/2018 No longer Active cyanocobalamin (vit B-12) 1,000 mcg/mL injection solution RxNorm: 349884 Milliliter 03/30/2018 No longer Active cyanocobalamin (vit B-12) 1,000 mcg/mL injection solution RxNorm: 384052 Milliliter 03/16/2018 No longer Active cyanocobalamin (vit B-12) 1,000 mcg/mL injection solution RxNorm: 207684 Milliliter 03/02/2018 No longer Active cyanocobalamin (vit B-12) 1,000 mcg/mL injection solution RxNorm: 644056 Milliliter 02/08/2018 No longer Active cyanocobalamin (vit B-12) 1,000 mcg/mL injection solution RxNorm: 816869 Milliliter 01/24/2018 No longer Active cyanocobalamin (vit B-12) 1,000 mcg/mL injection solution RxNorm: 052471 Milliliter 01/10/2018 No longer Active cyanocobalamin (vit B-12) 1,000 mcg/mL injection solution RxNorm: 786475 Milliliter 12/27/2017 No longer Active cyanocobalamin (vit B-12) 1,000 mcg/mL injection solution RxNorm: 210849 1Milliliter 12/12/2017 No longer Active cyanocobalamin (vit B-12) 1,000 mcg/mL injection solution RxNorm: 722277 Milliliter 12/01/2017 No longer Active cyanocobalamin (vit B-12) 1,000 mcg/mL injection solution RxNorm: 927810 1Milliliter 11/17/2017 No longer Active cyanocobalamin (vit B-12) 1,000 mcg/mL injection solution RxNorm: 777996 1Milliliter 11/02/2017 No longer Active cyanocobalamin (vit B-12) 1,000 mcg/mL injection solution RxNorm: 507290 1Milliliter 10/20/2017 No longer Active cyanocobalamin (vit B-12) 1,000 mcg/mL injection solution RxNorm: 465199 Milliliter 10/06/2017 No longer Active cyanocobalamin (vit B-12) 1,000 mcg/mL injection solution RxNorm: 764973 Milliliter 09/21/2017 No longer Active Kenalog 40 mg/mL suspension for injection RxNorm: 1306453 Milliliter 09/15/2017 No longer Active cyanocobalamin (vit B-12) 1,000 mcg/mL injection solution RxNorm: 532572 Milliliter 09/07/2017 No longer Active cyanocobalamin (vit B-12) 1,000 mcg/mL injection solution RxNorm: 811299 Milliliter 08/24/2017 No longer Active cyanocobalamin (vit B-12) 1,000 mcg/mL injection solution RxNorm: 040795 Milliliter 07/06/2017 No longer Active Kenalog 40 mg/mL suspension for injection RxNorm: 2966200 1Milliliter 06/20/2017 No longer Active cyanocobalamin (vit B-12) 1,000 mcg/mL injection solution RxNorm: 635662 Milliliter 06/20/2017 No longer Active cyanocobalamin (vit B-12) 1,000 mcg/mL injection solution RxNorm: 944188 Milliliter 06/05/2017 No longer Active cyanocobalamin (vit B-12) 1,000 mcg/mL injection solution RxNorm: 233389 Milliliter 05/25/2017 No longer Active cyanocobalamin (vit B-12) 1,000 mcg/mL injection solution RxNorm: 830978 Milliliter 05/16/2017 No longer Active cyanocobalamin (vit B-12) 1,000 mcg/mL injection solution RxNorm: 031279 1Milliliter 05/01/2017 No longer Active cyanocobalamin (vit B-12) 1,000 mcg/mL injection solution RxNorm: 900631 Milliliter 04/18/2017 No longer Active cyanocobalamin (vit B-12) 1,000 mcg/mL injection solution RxNorm: 346080 Milliliter 04/06/2017 No longer Active cyanocobalamin (vit B-12) 1,000 mcg/mL injection solution RxNorm: 893466 Milliliter 03/22/2017 No longer Active cyanocobalamin (vit B-12) 1,000 mcg/mL injection solution RxNorm: 774972 Milliliter 03/09/2017 No longer Active cyanocobalamin (vit B-12) 1,000 mcg/mL injection solution RxNorm: 614261 Milliliter 02/23/2017 No longer Active cyanocobalamin (vit B-12) 1,000 mcg/mL injection solution RxNorm: 156732 Milliliter 02/09/2017 No longer Active cyanocobalamin (vit B-12) 1,000 mcg/mL injection solution RxNorm: 533273 Milliliter 01/23/2017 No longer Active cyanocobalamin (vit B-12) 1,000 mcg/mL injection solution RxNorm: 920280 Milliliter 01/10/2017 No longer Active cyanocobalamin (vit B-12) 1,000 mcg/mL injection solution RxNorm: 576568 1Milliliter 12/28/2016 No longer Active cyanocobalamin (vit B-12) 1,000 mcg/mL injection solution RxNorm: 246805 Milliliter 12/14/2016 No longer Active cyanocobalamin (vit B-12) 1,000 mcg/mL injection solution RxNorm: 620959 Milliliter 11/24/2016 No longer Active cyanocobalamin (vit B-12) 1,000 mcg/mL injection solution RxNorm: 372881 1Milliliter 11/07/2016 No longer Active cyanocobalamin (vit B-12) 1,000 mcg/mL injection solution RxNorm: 912702 Milliliter 10/24/2016 No longer Active cyanocobalamin (vit B-12) 1,000 mcg/mL injection solution RxNorm: 846219 1Milliliter 09/29/2016 No longer Active cyanocobalamin (vit B-12) 1,000 mcg/mL injection solution RxNorm: 602722 Milliliter 08/29/2016 No longer Active cyanocobalamin (vit B-12) 1,000 mcg/mL injection solution RxNorm: 258457 Milliliter 08/04/2016 No longer Active cyanocobalamin (vit B-12) 1,000 mcg/mL injection solution RxNorm: 938187 Milliliter 07/21/2016 No longer Active cyanocobalamin (vit B-12) 1,000 mcg/mL injection solution RxNorm: 350750 1Milliliter 07/05/2016 No longer Active cyanocobalamin (vit B-12) 1,000 mcg/mL injection solution RxNorm: 592785 1Milliliter 06/22/2016 No longer Active cyanocobalamin (vit B-12) 1,000 mcg/mL injection solution RxNorm: 540988 Milliliter 06/09/2016 No longer Active cyanocobalamin (vit B-12) 1,000 mcg/mL injection solution RxNorm: 579186 1Milliliter 05/25/2016 No longer Active cyanocobalamin (vit B-12) 1,000 mcg/mL injection solution RxNorm: 440924 Milliliter 05/10/2016 No longer Active cyanocobalamin (vit B-12) 1,000 mcg/mL injection solution RxNorm: 818346 Milliliter 04/26/2016 No longer Active cyanocobalamin (vit B-12) 1,000 mcg/mL injection solution RxNorm: 136130 Milliliter 04/11/2016 No longer Active cyanocobalamin (vit B-12) 1,000 mcg/mL injection solution RxNorm: 407382 Milliliter 03/31/2016 No longer Active cyanocobalamin (vit B-12) 1,000 mcg/mL injection solution RxNorm: 045300 1Milliliter 03/15/2016 No longer Active cyanocobalamin (vit B-12) 1,000 mcg/mL injection solution RxNorm: 312370 Milliliter 02/25/2016 No longer Active cyanocobalamin (vit B-12) 1,000 mcg/mL injection solution RxNorm: 484400 1Milliliter 02/02/2016 No longer Active cyanocobalamin (vit B-12) 1,000 mcg/mL injection solution RxNorm: 712682 Milliliter 01/18/2016 No longer Active cyanocobalamin (vit B-12) 1,000 mcg/mL injection solution RxNorm: 157201 Milliliter 12/29/2015 No longer Active cyanocobalamin (vit B-12) 1,000 mcg/mL injection solution RxNorm: 834739 Milliliter 12/08/2015 No longer Active cyanocobalamin (vit B-12) 1,000 mcg/mL injection solution RxNorm: 281086 Milliliter 11/23/2015 No longer Active cyanocobalamin (vit B-12) 1,000 mcg/mL injection solution RxNorm: 222314 Milliliter 11/11/2015 No longer Active cyanocobalamin (vit B-12) 1,000 mcg/mL injection solution RxNorm: 885400 1Milliliter 10/29/2015 No longer Active cyanocobalamin (vit B-12) 1,000 mcg/mL injection solution RxNorm: 470558 1Milliliter 10/12/2015 No longer Active cyanocobalamin (vit B-12) 1,000 mcg/mL injection solution RxNorm: 886790 1Milliliter 09/29/2015 No longer Active cyanocobalamin (vit B-12) 1,000 mcg/mL injection solution RxNorm: 884443 1Milliliter 09/17/2015 No longer Active cyanocobalamin (vit B-12) 1,000 mcg/mL injection solution RxNorm: 410384 1Milliliter 09/03/2015 No longer Active cyanocobalamin (vit B-12) 1,000 mcg/mL injection solution RxNorm: 712208 Milliliter 08/17/2015 No longer Active cyanocobalamin (vit B-12) 1,000 mcg/mL injection solution RxNorm: 505118 Milliliter 08/06/2015 No longer Active cyanocobalamin (vit B-12) 1,000 mcg/mL injection solution RxNorm: 102561 Milliliter 07/22/2015 No longer Active cyanocobalamin (vit B-12) 1,000 mcg/mL injection solution RxNorm: 934737 Milliliter 07/08/2015 No longer Active cyanocobalamin (vit B-12) 1,000 mcg/mL injection solution RxNorm: 282599 Milliliter 06/23/2015 No longer Active cyanocobalamin (vit B-12) 1,000 mcg/mL injection solution RxNorm: 652062 1Milliliter 06/08/2015 No longer Active cyanocobalamin (vit B-12) 1,000 mcg/mL injection solution RxNorm: 177321 Milliliter 05/27/2015 No longer Active cyanocobalamin (vit B-12) 1,000 mcg/mL injection solution RxNorm: 014852 1Milliliter 05/12/2015 No longer Active cyanocobalamin (vit B-12) 1,000 mcg/mL injection kit RxNorm: 819330 kit 04/30/2015 No longer Active cyanocobalamin (vit B-12) 1,000 mcg/mL injection solution RxNorm: 935324 Milliliter 04/16/2015 No longer Active cyanocobalamin (vit B-12) 1,000 mcg/mL injection solution RxNorm: 432087 Milliliter 04/02/2015 No longer Active cyanocobalamin (vit B-12) 1,000 mcg/mL injection solution RxNorm: 779187 Milliliter 03/18/2015 No longer Active cyanocobalamin (vit B-12) 1,000 mcg/mL injection solution RxNorm: 504934 Milliliter 03/03/2015 No longer Active cyanocobalamin (vit B-12) 1,000 mcg/mL injection solution RxNorm: 478385 Milliliter 02/18/2015 No longer Active cyanocobalamin (vit B-12) 1,000 mcg/mL injection solution RxNorm: 035013 Milliliter 02/04/2015 No longer Active cyanocobalamin (vit B-12) 1,000 mcg/mL injection solution RxNorm: 651255 Milliliter 01/22/2015 No longer Active cyanocobalamin (vit B-12) 1,000 mcg/mL injection solution RxNorm: 287479 Milliliter 01/08/2015 No longer Active cyanocobalamin (vit B-12) 1,000 mcg/mL injection solution RxNorm: 996556 Milliliter 12/25/2014 No longer Active cyanocobalamin (vit B-12) 1,000 mcg/mL injection solution RxNorm: 898693 Milliliter 12/10/2014 No longer Active cyanocobalamin (vit B-12) 1,000 mcg/mL injection solution RxNorm: 086618 Milliliter 11/26/2014 No longer Active cyanocobalamin (vit B-12) 1,000 mcg/mL injection kit RxNorm: 293777 Milliliter 11/12/2014 No longer Active cyanocobalamin (vit B-12) 1,000 mcg/mL injection solution RxNorm: 533772 Milliliter 10/28/2014 No longer Active Immunizations Vaccine [...] Code Item Item Code Result Date Microalbumin [id number] MicroAlb <0.7 mg/dL 09/11/2018 Tsh Ord6 TSH (3rd IS) 6.48 uIU/mL 09/10/2018 Free T4 Skb540 FREE T4 0.89 ng/dL 09/10/2018 Lipid Ord30 CHOL 177 mg/dL 09/10/2018 Lipid Ord30 HDL 64.0 mg/dl 09/10/2018 Lipid Ord30 TRIG 126 mg/dL 09/10/2018 Lipid Ord30 LDL 88 mg/dL 09/10/2018 Lipid Ord30 C/HDL 2.8 Ratio 09/10/2018 Comp Metabolic Vzr021 NA 139 mEq/L 09/10/2018 Comp Metabolic Dqg908 K 4.8 mEq/L 09/10/2018 Comp Metabolic Lvl892 CL 103 mEq/L 09/10/2018 Comp Metabolic Qli658 CO2 25.0 mEq/L 09/10/2018 Comp Metabolic Zmu978 ANION GAP 16 09/10/2018 Comp Metabolic Iii202 GLUCOSE 104 mg/dL 09/10/2018 Comp Metabolic Jyb867 Creat 1.0 mg/dL 09/10/2018 Comp Metabolic Kcd893 eGFR 54 ml/min/1.73m2 09/10/2018 Comp Metabolic Aik238 BUN 25 mg/dL 09/10/2018 Comp Metabolic Ivd775 B/C Ratio 24.3 Ratio 09/10/2018 Comp Metabolic Yuq997 CALCIUM 9.3 mg/dL 09/10/2018 Comp Metabolic Hlv844 ALK PHOS 71 U/L 09/10/2018 Comp Metabolic Mte504 AST(SGOT) 25 U/L 09/10/2018 Comp Metabolic Xxm665 ALT(SGPT) 28 U/L 09/10/2018 Comp Metabolic Nxe002 BILI T 0.7 mg/dL 09/10/2018 Comp Metabolic Fix265 ALBUMIN 4.2 g/dL 09/10/2018 Comp Metabolic Xng231 TPRO 6.5 g/dL 09/10/2018 Comp Metabolic Mfu665 GLOB 2.3 g/dL 09/10/2018 Comp Metabolic Zmv299 A/G Ratio 1.8 Ratio 09/10/2018 Comp Metabolic Map779 Osmo 282 mOsmo 09/10/2018 Cbc With Differential [...] 27.7 pg 09/10/2018 Cbc With Differential Ord2 [place]% 8.8 % 09/10/2018 Cbc With Differential Ord2 [...] 2.24 K/ul 09/10/2018 Cbc With Differential Ord2 [place] ABS# 0.6 K/ul 09/10/2018 Cbc With Differential Ord2 Eos ABS# 0.2 K/ul 09/10/2018 Cbc With Differential Ord2 Baso ABS# 0.1 K/ul 09/10/2018 %Hba1C Gth776 % HbA1c 18700- 6 6.0 % 09/10/2018 %Hba1C Tvu314 Gluc Ave 126 mg/dL 09/10/2018 Test(s) Not Perfromed [id number] Test(s) Not Performed Test(s) Not Performed. See Below: 09/10/2018 Test(s) Not Perfromed [id number] TEST NAME Microalbumin 09/10/2018 Test(s) Not Perfromed [id number] Rejection Reason Patient Unable to Void 09/10/2018 Test(s) Not Perfromed [id number] COMMENT Patient to deliver sample to the lab at a later date 09/10/2018 Test(s) Not Perfromed [id number] Director Organizational Favio Mulligan 09/10/2018 Lipid Ord30 CHOL 174 mg/dL 05/29/2018 Lipid Ord30 HDL 49.0 mg/dl 05/29/2018 Lipid Ord30 TRIG 200 mg/dL 05/29/2018 Lipid Ord30 LDL 85 mg/dL 05/29/2018 Lipid Ord30 C/HDL 3.6 Ratio 05/29/2018 Tsh Ord6 TSH (3rd IS) 3.20 uIU/mL 02/26/2018 Free T4 Xzu970 FREE T4 0.99 ng/dL 02/26/2018 Cbc With [...] 28.5 pg 02/26/2018 Cbc With Differential Ord2 [place]% 10.3 % 02/26/2018 Cbc With Differential Ord2 [...] 1.80 K/ul 02/26/2018 Cbc With Differential Ord2 [place] ABS# 0.7 K/ul 02/26/2018 Cbc With Differential Ord2 Eos ABS# 0.2 K/ul 02/26/2018 Cbc With Differential Ord2 Baso ABS# 0.0 K/ul 02/26/2018 B12 Xuj712 B12 889.00 pg/ml 02/26/2018 Digoxin Ord9 DIGOXIN 0.7 NG/ML 11/23/2017 Comp Metabolic Wzi282 NA 142 mEq/L 11/23/2017 Comp Metabolic Kzz395 K 4.9 mEq/L 11/23/2017 Comp Metabolic Zxm765 CL 112 mEq/L 11/23/2017 Comp Metabolic Kyt984 CO2 18.0 mEq/L 11/23/2017 Comp Metabolic Cmw403 ANION GAP 17 11/23/2017 Comp Metabolic Wul537 GLUCOSE 123 mg/dL 11/23/2017 Comp Metabolic Hir834 Creat 1.0 mg/dL 11/23/2017 Comp Metabolic Ypw700 eGFR 59 ml/min/1.73m2 11/23/2017 Comp Metabolic Myo922 BUN 24 mg/dL 11/23/2017 Comp Metabolic Rhz417 B/C Ratio 25.0 Ratio 11/23/2017 Comp Metabolic Uki916 CALCIUM 9.4 mg/dL 11/23/2017 Comp Metabolic Obu503 ALK PHOS 56 U/L 11/23/2017 Comp Metabolic Dkg981 AST(SGOT) 17 U/L 11/23/2017 Comp Metabolic Gth503 ALT(SGPT) 16 U/L 11/23/2017 Comp Metabolic Eze119 BILI T 0.7 mg/dL 11/23/2017 Comp Metabolic Xau051 ALBUMIN 3.8 g/dL 11/23/2017 Comp Metabolic Prc567 TPRO 6.2 g/dL 11/23/2017 Comp Metabolic Agl246 GLOB 2.4 g/dL 11/23/2017 Comp Metabolic Iho443 A/G Ratio 1.6 Ratio 11/23/2017 Comp Metabolic Ckt520 Osmo 289 mOsmo 11/23/2017 Free T4 Jri158 FREE T4 1.04 ng/dL 11/23/2017 %Hba1C Wwe022 % HbA1c 14460- 6 6.4 % 11/23/2017 %Hba1C Sci035 Gluc Ave 137 mg/dL 11/23/2017 Lipid Ord30 CHOL 179 mg/dL 11/23/2017 Lipid Ord30 HDL 51.0 mg/dl 11/23/2017 Lipid Ord30 TRIG 134 mg/dL 11/23/2017 Lipid Ord30 LDL 101 mg/dL 11/23/2017 Lipid Ord30 C/HDL 3.5 Ratio 11/23/2017 Tsh Ord6 TSH (3rd IS) 1.00 uIU/mL 11/23/2017 Microalbumin Kbw494 MicroAlb <0.7 mg/dL 11/23/2017 Comp Metabolic Hft101 NA 141 mEq/L 01/23/2017 Comp Metabolic Zid329 K 4.5 mEq/L 01/23/2017 Comp Metabolic Ckr758 CL 107 mEq/L 01/23/2017 Comp Metabolic Zmp645 CO2 21.0 mEq/L 01/23/2017 Comp Metabolic Tri082 ANION GAP 18 01/23/2017 Comp Metabolic Khs150 GLUCOSE 138 mg/dL 01/23/2017 Comp Metabolic Psu367 Creat 1.0 mg/dL 01/23/2017 Comp Metabolic Xca452 eGFR 56 ml/min/1.73m2 01/23/2017 Comp Metabolic Tth381 BUN 26 mg/dL 01/23/2017 Comp Metabolic Puh234 B/C Ratio 25.7 Ratio 01/23/2017 Comp Metabolic Mxf682 CALCIUM 9.0 mg/dL 01/23/2017 Comp Metabolic Znp908 ALK PHOS 37 U/L 01/23/2017 Comp Metabolic Akf110 AST(SGOT) 20 U/L 01/23/2017 Comp Metabolic Fhz406 ALT(SGPT) 25 U/L 01/23/2017 Comp Metabolic Lfz339 BILI T 0.9 mg/dL 01/23/2017 Comp Metabolic Vyp611 ALBUMIN 3.8 g/dL 01/23/2017 Comp Metabolic Snu328 TPRO 6.5 g/dL 01/23/2017 Comp Metabolic Uvj399 GLOB 2.7 g/dL 01/23/2017 Comp Metabolic Vtg937 A/G Ratio 1.4 Ratio 01/23/2017 Comp Metabolic Khe230 Osmo 288 mOsmo 01/23/2017 Free T4 Mvc719 FREE T4 1.05 ng/dL 01/23/2017 %Hba1C Xvk834 % HbA1c 32883- 6 6.1 % 01/23/2017 %Hba1C Emk200 Gluc Ave 128 mg/dL 01/23/2017 Tsh Ord6 hTSH II 1.68 uIU/mL 01/23/2017 Culture Urine [id number] URINE CULTURE SEE NOTES 11/10/2016 Culture Urine [id number] Continued Results 11/10/2016 Urine Culture Ucult Complete [...] Ord15 CALCIUM 9.3 mg/dL 09/29/2016 Free T4 Sph970 FREE T4 0.99 ng/dL 09/07/2016 Cbc With [...] 30.0 pg 09/07/2016 Cbc With Differential Ord2 [place]% 9.8 % 09/07/2016 Cbc With Differential Ord2 [...] 1.75 K/ul 09/07/2016 Cbc With Differential Ord2 [place] ABS# 0.6 K/ul 09/07/2016 Cbc With Differential Ord2 Eos ABS# 0.1 K/ul 09/07/2016 Cbc With Differential Ord2 Baso ABS# 0.0 K/ul 09/07/2016 Tsh Ord6 hTSH II 1.41 uIU/mL 09/07/2016 Culture Urine [id number] URINE CULTURE SEE NOTES 06/27/2016 Lipid Ord30 CHOL 196 mg/dL 06/22/2016 Lipid Ord30 HDL 63.0 mg/dl 06/22/2016 Lipid Ord30 TRIG 154 mg/dL 06/22/2016 Lipid Ord30 LDL 102 mg/dL 06/22/2016 Lipid Ord30 C/HDL 3.1 Ratio 06/22/2016 Hepatic Jzc591 ALBUMIN 4.2 g/dL 06/22/2016 Hepatic Gkp651 TPRO 7.0 g/dL 06/22/2016 Hepatic Zup511 GLOB 2.8 g/dL 06/22/2016 Hepatic Eiz581 A/G Ratio 1.5 Ratio 06/22/2016 Hepatic Inb904 ALK PHOS 54 U/L 06/22/2016 Hepatic Eal172 ALT(SGPT) 30 U/L 06/22/2016 Hepatic Dev768 AST(SGOT) 24 U/L 06/22/2016 Hepatic Otn428 BILI T 1.1 mg/dL 06/22/2016 Hepatic Buf894 BILI D 0.2 mg/dL 06/22/2016 Hepatic Irz710 BILI I 0.9 mg/dL 06/22/2016 Comp Metabolic Mcj308 NA 139 mEq/L 06/14/2016 Comp Metabolic Dge263 K 4.6 mEq/L 06/14/2016 Comp Metabolic Fsp364 CL 108 mEq/L 06/14/2016 Comp Metabolic Lwh263 CO2 22.0 mEq/L 06/14/2016 Comp Metabolic Gcq464 ANION GAP 14 06/14/2016 Comp Metabolic Rpa436 GLUCOSE 114 mg/dL 06/14/2016 Comp Metabolic Yna429 Creat 1.2 mg/dL 06/14/2016 Comp Metabolic Hjl557 eGFR 48 ml/min/1.73m2 06/14/2016 Comp Metabolic Chv374 BUN 24 mg/dL 06/14/2016 Comp Metabolic Fus668 B/C Ratio 20.9 Ratio 06/14/2016 Comp Metabolic Bms468 CALCIUM 9.9 mg/dL 06/14/2016 Comp Metabolic Uym245 ALK PHOS 47 U/L 06/14/2016 Comp Metabolic Kkn566 AST(SGOT) 28 U/L 06/14/2016 Comp Metabolic Jtq643 ALT(SGPT) 32 U/L 06/14/2016 Comp Metabolic Zom798 BILI T 0.9 mg/dL 06/14/2016 Comp Metabolic Ozo784 ALBUMIN 4.1 g/dL 06/14/2016 Comp Metabolic Jwt745 TPRO 6.9 g/dL 06/14/2016 Comp Metabolic Yut714 GLOB 2.8 g/dL 06/14/2016 Comp Metabolic Xmn985 A/G Ratio 1.5 Ratio 06/14/2016 Comp Metabolic Bhg631 Osmo 282 mOsmo 06/14/2016 Tsh Ord6 hTSH II 1.26 uIU/mL 06/14/2016 Free T4 Qmy889 FREE T4 1.09 ng/dL 06/14/2016 Tsh Ord6 hTSH II 0.28 uIU/mL 02/02/2016 Digoxin Ord9 DIGOXIN 0.7 NG/ML 02/02/2016 Free T4 Cti028 FREE T4 1.23 ng/dL 02/02/2016 Hepatic Zom980 ALBUMIN 4.0 g/dL 02/02/2016 Hepatic Bbe036 TPRO 7.0 g/dL 02/02/2016 Hepatic Btt142 GLOB 3.0 g/dL 02/02/2016 Hepatic Lhr137 A/G Ratio 1.3 Ratio 02/02/2016 Hepatic Wpf876 ALK PHOS 57 U/L 02/02/2016 Hepatic Hex219 ALT(SGPT) 62 U/L 02/02/2016 Hepatic Lxb257 AST(SGOT) 54 U/L 02/02/2016 Hepatic Whp961 BILI T 0.8 mg/dL 02/02/2016 Hepatic Yvs803 BILI D 0.2 mg/dL 02/02/2016 Hepatic Sss345 BILI I 0.6 mg/dL 02/02/2016 Urine Culture Ucult Preliminary No Growth Day 1 11/25/2015 Urine Culture Ucult Complete No Growth Day 2 11/25/2015 Hepatic Hgh544 ALBUMIN 3.9 g/dL 11/11/2015 Hepatic Bxw360 TPRO 7.0 g/dL 11/11/2015 Hepatic Jnr161 GLOB 3.1 g/dL 11/11/2015 Hepatic Mfi813 A/G Ratio 1.3 Ratio 11/11/2015 Hepatic Vtj961 ALK PHOS 63 U/L 11/11/2015 Hepatic Ock255 ALT(SGPT) 107 U/L 11/11/2015 Hepatic Lto993 AST(SGOT) 101 U/L 11/11/2015 Hepatic Rvm308 BILI T 0.6 mg/dL 11/11/2015 Hepatic Pou910 BILI D 0.1 mg/dL 11/11/2015 Hepatic See012 BILI I 0.5 mg/dL 11/11/2015 Comp Metabolic Ovs544 NA 138 mEq/L 10/29/2015 Comp Metabolic Ftp405 K 5.0 mEq/L 10/29/2015 Comp Metabolic Coc038 CL 105 mEq/L 10/29/2015 Comp Metabolic Vcp515 CO2 23.0 mEq/L 10/29/2015 Comp Metabolic Nxq026 ANION GAP 15 10/29/2015 Comp Metabolic Zvk781 GLUCOSE 105 mg/dL 10/29/2015 Comp Metabolic Kvq324 Creat 1.0 mg/dL 10/29/2015 Comp Metabolic Gdt570 eGFR 55 ml/min/1.73m2 10/29/2015 Comp Metabolic Yue448 BUN 20 mg/dL 10/29/2015 Comp Metabolic Tdp403 B/C Ratio 19.4 Ratio 10/29/2015 Comp Metabolic Bfd512 CALCIUM 8.8 mg/dL 10/29/2015 Comp Metabolic Psf427 ALK PHOS 56 U/L 10/29/2015 Comp Metabolic Ucv290 AST(SGOT) 66 U/L 10/29/2015 Comp Metabolic Lhr321 ALT(SGPT) 78 U/L 10/29/2015 Comp Metabolic Gns779 BILI T 0.7 mg/dL 10/29/2015 Comp Metabolic Nzh003 ALBUMIN 3.6 g/dL 10/29/2015 Comp Metabolic Sfe552 TPRO 6.6 g/dL 10/29/2015 Comp Metabolic Uyj366 GLOB 3.0 g/dL 10/29/2015 Comp Metabolic Rmh222 A/G Ratio 1.2 Ratio 10/29/2015 Comp Metabolic Uaw171 Osmo 279 mOsmo 10/29/2015 Comp Metabolic Faj502 NA 136 mEq/L 09/03/2015 Comp Metabolic Kcs116 K 4.4 mEq/L 09/03/2015 Comp Metabolic Tan087 CL 103 mEq/L 09/03/2015 Comp Metabolic Sbn159 CO2 24.0 mEq/L 09/03/2015 Comp Metabolic Whs460 ANION GAP 13 09/03/2015 Comp Metabolic Iop428 GLUCOSE 87 mg/dL 09/03/2015 Comp Metabolic Qle393 Creat 1.1 mg/dL 09/03/2015 Comp Metabolic Doi881 eGFR 53 ml/min/1.73m2 09/03/2015 Comp Metabolic Ncr870 BUN 17 mg/dL 09/03/2015 Comp Metabolic Lnn170 B/C Ratio 16.2 Ratio 09/03/2015 Comp Metabolic Ykd589 CALCIUM 9.0 mg/dL 09/03/2015 Comp Metabolic Rxo763 ALK PHOS 55 U/L 09/03/2015 Comp Metabolic Biy282 AST(SGOT) 83 U/L 09/03/2015 Comp Metabolic Wac157 ALT(SGPT) 126 U/L 09/03/2015 Comp Metabolic Kbc152 BILI T 0.9 mg/dL 09/03/2015 Comp Metabolic Ggv663 ALBUMIN 3.9 g/dL 09/03/2015 Comp Metabolic Xsu323 TPRO 6.8 g/dL 09/03/2015 Comp Metabolic Geh795 GLOB 2.9 g/dL 09/03/2015 Comp Metabolic Dnq228 A/G Ratio 1.4 Ratio 09/03/2015 Comp Metabolic Xkw273 Osmo 273 mOsmo 09/03/2015 Total T3 Ord42 TT3 0.6 ng/ml 07/09/2015 Tsh Ord6 hTSH II 1.62 uIU/mL 07/09/2015 Total T3 Ord42 TT3 0.5 ng/ml 04/02/2015 Free T4 Pax523 FREE T4 1.23 ng/dL 04/02/2015 Tsh Ord6 [...] normal 09/05/2018 None Full Exam - General 1995 Ears/Nose/Throat lips/teeth/gingiva Overall: benign lips 09/05/2018 None [...] Procedure Codes Date THER/PROPH/DIAG INJ SC/IM CPT-4: 58213 11/08/2018 THER/PROPH/DIAG INJ SC/IM CPT-4: 05679 10/23/2018 THER/PROPH/DIAG INJ SC/IM CPT-4: 20471 10/10/2018 THER/PROPH/DIAG INJ SC/IM CPT-4: 41909 09/27/2018 THER/PROPH/DIAG INJ SC/IM CPT-4: 51790 09/11/2018 THER/PROPH/DIAG INJ SC/IM CPT-4: 66403 08/29/2018 THER/PROPH/DIAG INJ SC/IM CPT-4: 12859 08/15/2018 TRIAMCINOLONE ACET INJ NOS CPT-4: J3301 08/15/2018 THER/PROPH/DIAG INJ SC/IM CPT-4: 62548 08/01/2018 VITAMIN B12 INJECTION CPT- 4: J3420 08/01/2018 THER/PROPH/DIAG INJ SC/IM CPT-4: 21699 07/19/2018 THER/PROPH/DIAG INJ SC/IM CPT-4: 37413 07/04/2018 THER/PROPH/DIAG INJ SC/IM CPT-4: 39658 06/20/2018 THER/PROPH/DIAG INJ SC/IM CPT-4: 00679 06/06/2018 VITAMIN B12 INJECTION CPT- 4: J3420 06/06/2018 THER/PROPH/DIAG INJ SC/IM CPT-4: 27530 05/24/2018 THER/PROPH/DIAG INJ SC/IM CPT-4: 05145 05/09/2018 THER/PROPH/DIAG INJ SC/IM CPT-4: 26676 04/26/2018 VITAMIN B12 INJECTION CPT- 4: J3420 04/26/2018 THER/PROPH/DIAG INJ SC/IM CPT-4: 67215 04/12/2018 THER/PROPH/DIAG INJ SC/IM CPT-4: 28233 03/30/2018 THER/PROPH/DIAG INJ SC/IM CPT-4: 90152 03/16/2018 VITAMIN B12 INJECTION CPT- 4: J3420 03/16/2018 ADMIN INFLUENZA VIRUS VAC CPT-4: G0008 03/16/2018 FLU VACC PRSV FREE INC ANTIG Formatting Model/CDA Sections, Assigned to/Nga Ojeda CPT-4: [id number] 03/16/2018 THER/PROPH/DIAG INJ SC/IM CPT-4: 46770 03/02/2018 THER/PROPH/DIAG INJ SC/IM CPT-4: 91770 02/08/2018 THER/PROPH/DIAG INJ SC/IM CPT-4: 42303 01/24/2018 THER/PROPH/DIAG INJ SC/IM CPT-4: 35381 01/10/2018 THER/PROPH/DIAG INJ SC/IM CPT-4: 05213 12/27/2017 VITAMIN B12 INJECTION CPT- 4: J3420 12/27/2017 THER/PROPH/DIAG INJ SC/IM CPT-4: 92446 12/12/2017 THER/PROPH/DIAG INJ SC/IM CPT-4: 24868 12/01/2017 VITAMIN B12 INJECTION CPT- 4: J3420 12/01/2017 THER/PROPH/DIAG INJ SC/IM CPT-4: 44258 11/17/2017 THER/PROPH/DIAG INJ SC/IM CPT-4: 18881 11/02/2017 THER/PROPH/DIAG INJ SC/IM CPT-4: 86609 10/20/2017 THER/PROPH/DIAG INJ SC/IM CPT-4: 09311 10/06/2017 THER/PROPH/DIAG INJ SC/IM CPT-4: 83058 09/21/2017 TRIAMCINOLONE ACET INJ NOS CPT-4: J3301 09/15/2017 THER/PROPH/DIAG INJ SC/IM CPT-4: 06023 09/07/2017 THER/PROPH/DIAG INJ SC/IM CPT-4: 70592 08/24/2017 THER/PROPH/DIAG INJ SC/IM CPT-4: 06654 07/06/2017 THER/PROPH/DIAG INJ SC/IM CPT-4: 08266 06/20/2017 TRIAMCINOLONE ACET INJ NOS CPT-4: J3301 06/20/2017 PPPS, SUBSEQ VISIT CPT- 4: G0439 06/05/2017 THER/PROPH/DIAG INJ SC/IM CPT-4: 89858 06/05/2017 THER/PROPH/DIAG INJ SC/IM CPT-4: 82338 05/25/2017 VITAMIN B12 INJECTION CPT- 4: J3420 05/25/2017 THER/PROPH/DIAG INJ SC/IM CPT-4: 12934 05/16/2017 THER/PROPH/DIAG INJ SC/IM CPT-4: 47175 05/01/2017 THER/PROPH/DIAG INJ SC/IM CPT-4: 94361 04/18/2017 THER/PROPH/DIAG INJ SC/IM CPT-4: 78342 04/06/2017 ADMIN INFLUENZA VIRUS VAC CPT-4: G0008 03/22/2017 FLU VACC PRSV FREE INC ANTIG CPT-4: 57958 03/22/2017 THER/PROPH/DIAG INJ SC/IM CPT-4: 99347 03/09/2017 THER/PROPH/DIAG INJ SC/IM CPT-4: 24090 02/23/2017 THER/PROPH/DIAG INJ SC/IM CPT-4: 87500 02/09/2017 THER/PROPH/DIAG INJ SC/IM CPT-4: 23313 01/23/2017 THER/PROPH/DIAG INJ SC/IM CPT-4: 97889 01/10/2017 THER/PROPH/DIAG INJ SC/IM CPT-4: 99956 12/28/2016 THER/PROPH/DIAG INJ SC/IM CPT-4: 20763 12/14/2016 THER/PROPH/DIAG INJ SC/IM CPT-4: 55736 11/24/2016 URINALYSIS NONAUTO W/O SCOPE CPT-4: 79856 11/07/2016 THER/PROPH/DIAG INJ SC/IM CPT-4: 03849 11/07/2016 THER/PROPH/DIAG INJ SC/IM CPT-4: 60934 10/24/2016 THER/PROPH/DIAG INJ SC/IM CPT-4: 15212 09/29/2016 THER/PROPH/DIAG INJ SC/IM CPT-4: 27696 08/29/2016 THER/PROPH/DIAG INJ SC/IM CPT-4: 45276 08/04/2016 THER/PROPH/DIAG INJ SC/IM CPT-4: 34857 07/21/2016 THER/PROPH/DIAG INJ SC/IM CPT-4: 40239 07/05/2016 THER/PROPH/DIAG INJ SC/IM CPT-4: 37536 06/22/2016 URINALYSIS NONAUTO W/O SCOPE CPT-4: 77058 06/22/2016 THER/PROPH/DIAG INJ SC/IM CPT-4: 86566 06/09/2016 PPPS, SUBSEQ VISIT CPT- 4: G0439 05/30/2016 ADMIN PNEUMOCOCCAL VACCINE SNOMED CT: [id number] CPT-4: G0009 05/25/2016 Pneumococcal Polysaccharide Vaccine, 23-Valent, Ad CPT-4: 93335 05/25/2016 THER/PROPH/DIAG INJ SC/IM CPT-4: 12289 05/25/2016 THER/PROPH/DIAG INJ SC/IM CPT-4: 24194 05/10/2016 TRIAMCINOLONE ACET INJ NOS CPT-4: J3301 04/26/2016 VITAMIN B12 INJECTION CPT- 4: J3420 04/26/2016 THER/PROPH/DIAG INJ SC/IM CPT-4: 08028 04/11/2016 THER/PROPH/DIAG INJ SC/IM CPT-4: 70700 03/31/2016 ADMIN INFLUENZA VIRUS VAC CPT-4: G0008 03/15/2016 FLU VACC 4 STEPHANIE 3 YRS PLUS IM SNOMED CT: 87205620 CPT-4: 82112 03/15/2016 THER/PROPH/DIAG INJ SC/IM CPT-4: 96239 02/25/2016 THER/PROPH/DIAG INJ SC/IM CPT-4: 10177 02/02/2016 THER/PROPH/DIAG INJ SC/IM CPT-4: 32070 01/18/2016 VITAMIN B12 INJECTION CPT- 4: J3420 12/29/2015 THER/PROPH/DIAG INJ SC/IM CPT-4: 00496 12/29/2015 THER/PROPH/DIAG INJ SC/IM CPT-4: 50508 12/08/2015 THER/PROPH/DIAG INJ SC/IM CPT-4: 68484 11/23/2015 URINALYSIS NONAUTO W/O SCOPE CPT-4: 09188 11/23/2015 THER/PROPH/DIAG INJ SC/IM CPT-4: 72095 11/11/2015 THER/PROPH/DIAG INJ SC/IM CPT-4: 94681 10/29/2015 THER/PROPH/DIAG INJ SC/IM CPT-4: 53501 10/12/2015 VITAMIN B12 INJECTION CPT- 4: J3420 10/12/2015 THER/PROPH/DIAG INJ SC/IM CPT-4: 31237 09/29/2015 THER/PROPH/DIAG INJ SC/IM CPT-4: 98841 09/17/2015 THER/PROPH/DIAG INJ SC/IM CPT-4: 10961 09/03/2015 THER/PROPH/DIAG INJ SC/IM CPT-4: 73401 08/17/2015 THER/PROPH/DIAG INJ SC/IM CPT-4: 64452 08/06/2015 THER/PROPH/DIAG INJ SC/IM CPT-4: 08268 07/22/2015 THER/PROPH/DIAG INJ SC/IM CPT-4: 89500 07/08/2015 THER/PROPH/DIAG INJ SC/IM CPT-4: 29698 06/23/2015 THER/PROPH/DIAG INJ SC/IM CPT-4: 48808 06/08/2015 THER/PROPH/DIAG INJ SC/IM CPT-4: 05036 05/27/2015 DESTRUCT PREMALG LESION CPT-4: 68774 05/19/2015 DESTRUCT PREMALG LES 2-14 CPT-4: 28607 05/19/2015 THER/PROPH/DIAG INJ SC/IM CPT-4: 53766 05/12/2015 VITAMIN B12 INJECTION CPT- 4: J3420 05/12/2015 THER/PROPH/DIAG INJ SC/IM CPT-4: 92668 04/30/2015 VITAMIN B12 INJECTION CPT- 4: J3420 04/30/2015 THER/PROPH/DIAG INJ SC/IM CPT-4: 38928 04/16/2015 THER/PROPH/DIAG INJ SC/IM CPT-4: 01361 04/02/2015 VITAMIN B12 INJECTION CPT- 4: J3420 04/02/2015 THER/PROPH/DIAG INJ SC/IM CPT-4: 63099 03/18/2015 THER/PROPH/DIAG INJ SC/IM CPT-4: 29406 03/03/2015 THER/PROPH/DIAG INJ SC/IM CPT-4: 28080 02/18/2015 THER/PROPH/DIAG INJ SC/IM CPT-4: 11924 02/04/2015 VITAMIN B12 INJECTION CPT- 4: J3420 02/04/2015 THER/PROPH/DIAG INJ SC/IM CPT-4: 58314 01/22/2015 THER/PROPH/DIAG INJ SC/IM CPT-4: 98985 01/08/2015 VITAMIN B12 INJECTION CPT- 4: J3420 01/08/2015 THER/PROPH/DIAG INJ SC/IM CPT-4: 93417 12/25/2014 VITAMIN B12 INJECTION CPT- 4: J3420 12/25/2014 THER/PROPH/DIAG INJ SC/IM CPT-4: 71777 12/10/2014 VITAMIN B12 INJECTION CPT- 4: J3420 12/10/2014 THER/PROPH/DIAG INJ SC/IM CPT-4: 74782 11/26/2014 VITAMIN B12 INJECTION CPT- 4: J3420 11/26/2014 THER/PROPH/DIAG INJ SC/IM CPT-4: 42135 11/12/2014 VITAMIN B12 INJECTION CPT- 4: J3420 11/12/2014 THER/PROPH/DIAG INJ SC/IM CPT-4: 93737 10/28/2014 Vital Signs Date Vital 10/29/2018 Blood Pressure 1: 118/68 Code: 8480-6 BMI: 28.1 Code: 60868-2 Heart Rate 1: 64 bpm Height: 5'6" SpO2: 99% Weight: 174 lbs 09/05/2018 Blood Pressure 1: 122/70 Code: 8480-6 BMI: 27.1 Code: 11993-4 Heart Rate 1: 90 bpm Height: 5'6" SpO2: 97% Weight: 168 lbs 08/15/2018 Blood Pressure 1: 142/76 Code: 8480-6 BMI: 27.4 Code: 03636-7 Heart Rate 1: 74 bpm Height: 5'6" SpO2: 95% Temperature: 36.7 (C) / 98.1 (F) Weight: 170 lbs 05/03/2018 Blood Pressure 1: 140/70 Code: 8480-6 BMI: 26.0 Code: 00994-5 Heart Rate 1: 70 bpm Height: 5'6" SpO2: 94% Weight: 161 lbs 04/26/2018 Height: 5'6" 02/26/2018 Blood Pressure 1: 130/72 Code: 8480-6 BMI: 27.9 Code: 99095-8 Heart Rate 1: 72 bpm Height: 5'6" SpO2: 93% Weight: 173 lbs 12/12/2017 Blood Pressure 1: 126/74 Code: 8480-6 BMI: 27.4 Code: 77311-7 Heart Rate 1: 83 bpm Height: 5'6" SpO2: 98% Weight: 170 lbs 12/04/2017 Blood Pressure 1: 104/68 Code: 8480-6 BMI: 28.2 Code: 74958-7 Heart Rate 1: 85 bpm Height: 5'6" SpO2: 95% Weight: 175 lbs 11/20/2017 Blood Pressure 1: 130/68 Code: 8480-6 BMI: 28.4 Code: 81525-2 Heart Rate 1: 80 bpm Height: 5'6" SpO2: 99% Weight: 176 lbs 11/02/2017 Height: 5'6" 09/15/2017 Blood Pressure 1: 134/74 Code: 8480-6 BMI: 28.4 Code: 93824-1 Heart Rate 1: 88 bpm Height: 5'6" SpO2: 98% Weight: 176 lbs 09/07/2017 Blood Pressure 1: 124/64 Code: 8480-6 Heart Rate 1: 90 bpm Height: SpO2: 97% Weight: 08/30/2017 Blood Pressure 1: 140/76 Code: 8480-6 BMI: 28.4 Code: 98920-6 Heart Rate 1: 90 bpm Height: 5'6" SpO2: 94% Weight: 176 lbs 07/06/2017 Blood Pressure 1: 132/66 Code: 8480-6 BMI: 29.4 Code: 01642-5 Heart Rate 1: 85 bpm Height: 5'6" SpO2: 97% Weight: 182 lbs 06/20/2017 Blood Pressure 1: 134/86 Code: 8480-6 Heart Rate 1: 90 bpm Height: SpO2: 98% Weight: 06/05/2017 BMI: 29.1 Code: 20277-8 Height: 5'6" Weight: 180 lbs 05/25/2017 Blood Pressure 1: 126/76 Code: 8480-6 BMI: 29.1 Code: 26830-4 Heart Rate 1: 77 bpm Height: 5'6" SpO2: 97% Weight: 180 lbs 03/23/2017 Blood Pressure 1: 142/84 Code: 8480-6 BMI: 29.1 Code: 49181-5 Heart Rate 1: 91 bpm Height: 5'6" SpO2: 97% Weight: 180 lbs 01/23/2017 Blood Pressure 1: 150/90 Code: 8480-6 BMI: 29.9 Code: 84150-5 Heart Rate 1: 81 bpm Height: 5'6" SpO2: 97% Weight: 185 lbs 11/02/2016 Blood Pressure 1: 148/78 Code: 8480-6 BMI: 29.7 Code: 09722-8 Heart Rate 1: 87 bpm Height: 5'6" SpO2: 97% Weight: 184 lbs 09/29/2016 Blood Pressure 1: 128/78 Code: 8480-6 BMI: 29.7 Code: 98722-7 Heart Rate 1: 78 bpm Height: 5'6" SpO2: 98% Weight: 184 lbs 07/26/2016 Blood Pressure 1: 138/72 Code: 8480-6 BMI: 30.0 Code: 00053-4 Heart Rate 1: 85 bpm Height: 5'6" SpO2: 97% Weight: 186 lbs 05/30/2016 Blood Pressure 1: 132/76 Code: 8480-6 BMI: 30.0 Code: 36872-7 Heart Rate 1: 80 bpm Height: 5'6" SpO2: 98% Waist Measure (cm): 99 cm Weight: 186 lbs 05/25/2016 Blood Pressure 1: 132/76 Code: 8480-6 BMI: 30.0 Code: 06835-7 Heart Rate 1: 80 bpm Height: 5'6" SpO2: 96% Weight: 186 lbs 02/25/2016 Blood Pressure 1: 110/64 Code: 8480-6 Heart Rate 1: 82 bpm Height: SpO2: 96% Weight: 01/25/2016 Blood Pressure 1: 118/70 Code: 8480-6 BMI: 30.0 Code: 00613-9 Heart Rate 1: 78 bpm Height: 5'6" SpO2: 97% Weight: 186 lbs 11/11/2015 Blood Pressure 1: 128/82 Code: 8480-6 BMI: 29.2 Code: 30449-9 Heart Rate 1: 86 bpm Height: 5'6" SpO2: 96% Temperature: 36.4 (C) / 97.6 (F) Weight: 181 lbs 10/12/2015 Blood Pressure 1: 118/70 Code: 8480-6 BMI: 29.2 Code: 06016-5 Heart Rate 1: 81 bpm Height: 5'6" SpO2: 95% Weight: 181 lbs 09/03/2015 Blood Pressure 1: 138/78 Code: 8480-6 BMI: 29.9 Code: 61354-6 Heart Rate 1: 88 bpm Height: 5'6" SpO2: 97% Weight: 185 lbs 05/19/2015 Blood Pressure 1: 146/78 Code: 8480-6 BMI: 30.0 Code: 03384-2 Heart Rate 1: 66 bpm Height: 5'6" SpO2: 97% Weight: 186 lbs 05/12/2015 Blood Pressure 1: 120/70 Code: 8480-6 BMI: 29.9 Code: 66844-6 Heart Rate 1: 89 bpm Height: 5'6" SpO2: 95% Weight: 185 lbs 01/13/2015 Blood Pressure 1: 140/90 Code: 8480-6 BMI: 30.3 Code: 10045-5 Heart Rate 1: 84 bpm Height: 5'6" SpO2: 95% Weight: 188 lbs 12/16/2014 Blood Pressure 1: 140/82 Code: 8480-6 BMI: 29.5 Code: 25999-1 Heart Rate 1: 86 bpm Height: 5'6" [...] data Encounters Encounter Performer Location Codes Date EST. PATIENT, LEVEL V Diagnosis: Essential (primary) hypertension[ICD10: I10] Diagnosis: Chronic atrial fibrillation[ICD10: I48.2] Diagnosis: Atrophy of thyroid (acquired)[ICD10: E03.4] Diagnosis: Cough[ICD10: R05] Diagnosis: 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[ICD10: K44.9] Yarely Vega MD, [facility] CPT-4: 49183 10/29/2018 [id number]) [id number] EST. PATIENT, LEVEL IV Diagnosis: Essential (primary) hypertension[ICD10: I10] Diagnosis: Type 2 diabetes mellitus without complications[ICD10: E11.9] Diagnosis: Atrophy of thyroid (acquired)[ICD10: E03.4] Diagnosis: Other vitamin B12 deficiency anemias[ICD10: D51.8] Yarely Vega MD, [facility] CPT-4: 71724 09/05/2018 [id number] EST. PATIENT, LEVEL IV Diagnosis: Acute bronchitis due to other specified organisms[ICD10: J20.8] Diagnosis: Cough[ICD10: R05] Diagnosis: 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 factor deficiency[ICD10: D51.0] Brianna Vega MD, [facility] CPT-4: 22333 08/15/2018 ([id number]) 93404 EST. PATIENT, LEVEL IV Diagnosis: Essential (primary) hypertension[ICD10: I10] Diagnosis: Type 2 diabetes mellitus without complications[ICD10: E11.9] Yarely Vega MD, [facility] CPT-4: 92384 05/03/2018 [id number]) [id number] EST. PATIENT, LEVEL III Diagnosis: Pain in left shoulder[ICD10: M25.512] Diagnosis: Pain in right shoulder[ICD10: M25.511] Yarely Vega MD, [facility] CPT-4: 80100 02/26/2018 ([id number]) 18603 EST. PATIENT, LEVEL III Diagnosis: Nausea[ICD10: R11.0] Diagnosis: Cough[ICD10: R05] Diagnosis: 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 factor deficiency[ICD10: D51.0] Janet Vega MD, [facility] CPT-4: 85615 12/12/2017 ([id number]) 53854 EST. PATIENT, LEVEL IV Diagnosis: Acute bronchitis due to Hemophilus influenzae[ICD10: J20.1] Diagnosis: Cough[ICD10: R05] Yarely Vega MD, [facility] CPT-4: 66008 12/04/2017 ([id number]) 83255 EST. PATIENT, LEVEL IV Diagnosis: Essential (primary) hypertension[ICD10: I10] Diagnosis: Cough[ICD10: R05] Diagnosis: Chronic atrial fibrillation[ICD10: I48.2] Yarely Vega MD, [facility] CPT-4: 10114 11/20/2017 ([id number]) 79744 EST. PATIENT, LEVEL III Diagnosis: Cough[ICD10: R05] Diagnosis: Acute upper respiratory infection, unspecified[ICD10: J06.9] Janet Vega MD, [facility] CPT-4: 39950 09/15/2017 06257 EST. PATIENT, LEVEL III Diagnosis: Laceration without foreign body of right forearm, initial encounter[ICD10: S51.811A] Diagnosis: Other vitamin B12 deficiency anemias[ICD10: D51.8] Brianna Vega MD, [facility] CPT-4: 44698 09/07/2017 ([id number]) 25001 EST. PATIENT, LEVEL IV Diagnosis: Chronic atrial fibrillation[ICD10: I48.2] Diagnosis: Other allergic rhinitis[ICD10: J30.89] Diagnosis: Encounter for therapeutic drug level monitoring[ICD10: Z51.81] Yarely Vega MD, [facility] CPT-4: 91780 08/30/2017 ([id number]) 78640 EST. PATIENT, LEVEL IV Diagnosis: Atrophy of thyroid (acquired)[ICD10: E03.4] Diagnosis: Cough[ICD10: R05] Diagnosis: Laceration without foreign body of left forearm, initial encounter[ICD10: S51.812A] Diagnosis: Candidiasis of skin and nail[ICD10: B37.2] Diagnosis: Other vitamin B12 deficiency anemias[ICD10: D51.8] Diagnosis: Slow transit constipation[ICD10: K59.01] Yarely Vega MD, [facility] CPT-4: 73662 07/06/2017 75531 EST. PATIENT, LEVEL III Diagnosis: Other vitamin B12 deficiency anemias[ICD10: D51.8] Diagnosis: Acute laryngopharyngitis[ICD10: J06.0] Diagnosis: Other allergic rhinitis[ICD10: J30.89] [facility] CPT- 4: 71189 06/20/2017 ([id number]) 51595 EST. PATIENT, LEVEL IV Diagnosis: Essential (primary) hypertension[ICD10: I10] Diagnosis: Chronic atrial fibrillation[ICD10: I48.2] Diagnosis: Atrophy of thyroid (acquired)[ICD10: E03.4] Diagnosis: 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 factor deficiency[ICD10: D51.0] Yarely Vega MD, [facility] CPT-4: 60192 05/25/2017 [id number]) 61733 EST. 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 PATIENT, LEVEL IV Diagnosis: Type 2 diabetes mellitus without complications[ICD10: E11.9] Diagnosis: Essential (primary) hypertension[ICD10: I10] Diagnosis: Headache[ICD10: R51] Diagnosis: Atrophy of thyroid (acquired)[ICD10: E03.4] Diagnosis: Vitamin B12 deficiency anemia, unspecified[ICD10: D51.9] [facility] CPT-4: 26170 01/23/2017 27748 EST. PATIENT, LEVEL III Diagnosis: Low back pain[ICD10: M54.5] Diagnosis: Pain in thoracic spine[ICD10: M54.6] Brianna Vega MD, [facility] CPT- 4: 64228 11/02/2016 ([id number]) 72617 EST. PATIENT, LEVEL IV Diagnosis: Essential (primary) hypertension[ICD10: I10] Diagnosis: Other vitamin B12 deficiency anemias[ICD10: D51.8] Diagnosis: Generalized abdominal pain[ICD10: R10.84] Yarely Vega MD, [facility] CPT-4: 60480 09/29/2016 ([id number]) 04699 EST. PATIENT, LEVEL IV Diagnosis: Essential (primary) hypertension[ICD10: I10] Yarely Vega MD, [facility] CPT-4: 71939 07/26/2016 ([id number]) 00121 EST. PATIENT, LEVEL IV Diagnosis: Benign lipomatous neoplasm of skin and subcutaneous tissue of right leg[ICD10: D17.23] Diagnosis: Pain in right ankle and joints of right foot[ICD10: M25.571] Diagnosis: Encounter for immunization[ICD10: Z23] Diagnosis: Vitamin B12 deficiency anemia, unspecified[ICD10: D51.9] Yarely Vega MD, [facility] CPT-4: 04784 05/25/2016 74842 EST. PATIENT, LEVEL III Diagnosis: Other chest pain[ICD10: R07.89] Diagnosis: Other vitamin B12 deficiency anemias[ICD10: D51.8] Brianna Vega MD, [facility] CPT-4: 18249 02/25/2016 ([id number]) 58400 EST. 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 PATIENT, LEVEL III Diagnosis: Other vitamin B12 deficiency anemias[ICD10: D51.8] Diagnosis: Acute nasopharyngitis [common cold][ICD10: J00] Diagnosis: Other allergic rhinitis[ICD10: J30.89] Brianna Vega MD, [facility] CPT- 4: 22891 11/11/2015 ([id number]) 05314 EST. PATIENT, LEVEL IV Diagnosis: Essential tremor[ICD10: G25.0] Diagnosis: Chronic fatigue, unspecified[ICD10: R53.82] Diagnosis: Other hypersomnia[ICD10: G47.19] Diagnosis: Essential (primary) hypertension[ICD10: I10] Yarely Vega MD, [facility] CPT-4: 37076 10/12/2015 ([id number]) 91310 EST. PATIENT, LEVEL IV Diagnosis: Essential (primary) hypertension[ICD10: I10] Diagnosis: Chronic atrial fibrillation[ICD10: I48.2] Diagnosis: Abnormal levels of other serum enzymes[ICD10: R74.8] Diagnosis: Type 2 diabetes mellitus without complications[ICD10: E11.9] Diagnosis: Vitamin B12 deficiency anemia, unspecified[ICD10: D51.9] Yarely Vega MD, [facility] CPT-4: 44267 09/03/2015 ([id number]) 35566 EST. PATIENT, LEVEL III Diagnosis: Nausea[ICD10: R11.0] Diagnosis: Essential tremor[ICD10: G25.0] Diagnosis: Actinic keratosis[ICD10: L57.0] Yarely Vega MD, [facility] CPT-4: 88739 05/19/2015 [id number]) 02767 EST. PATIENT, LEVEL IV Diagnosis: Vitamin B12 deficiency anemia, unspecified[ICD10: D51.9] Diagnosis: Chronic atrial fibrillation[ICD10: I48.2] Diagnosis: Headache[ICD10: R51] Diagnosis: Chronic fatigue, unspecified[ICD10: R53.82] Diagnosis: Cervicalgia[ICD10: M54.2] Yarely Vega MD, [facility] CPT-4: 61148 05/12/2015 ([id number]) 53964 EST. PATIENT, LEVEL IV Diagnosis: ESSENTIAL HYPERTENSION[ICD9: 401.9] Diagnosis: Afib[ICD9: 427.31] Diagnosis: Anxiety[ICD9: 300.00] Diagnosis: Insomnia[ICD9: 780.52] [facility] CPT-4: 65932 01/13/2015 ([id number]) OFFICE VISIT, NEW - LEVEL 4 Diagnosis: Hypothyroidism[ICD9: 244.9] Diagnosis: DIABETES TYPE II[ICD9: 250.00] Diagnosis: ESSENTIAL HYPERTENSION[ICD9: 401.9] Diagnosis: Afib[ICD9: 427.31] Diagnosis: Anxiety[ICD9: 300.00] Diagnosis: B12 deficiency[ICD9: 266.2] [facility] CPT-4: 98481 12/16/2014 Plan of Care Planned Activity Notes Codes Status Date Patient Education: Patient Medication Summary Completed 11/08/2018 [...] the office will call her DTR benji ([phone]) - with appt information Hypertension - well [...] 45 minutes 10/29/2018 Appointment: Yarely Vega WPtel: [address] [place], [place] [address] [place] (15 min) Moderate 10/29/2018 Patient Education: Patient Medication Summary Completed 10/29/2018 Patient Education: Hypertension Completed 10/29/2018 Appointment: Injection 10/23/2018 Patient Education: Patient Medication Summary Completed 10/23/2018 [facility]ment: [facility] [phone] [facility] [place] (15 min) Moderate 10/22/2018 Appointment: Injection 10/10/2018 Patient Education: Patient Medication Summary Completed 10/10/2018 Appointment: Injection 09/27/2018 Patient Education: Patient Medication Summary Completed 09/27/2018 Appointment: [phone] [facility] [place] (15 min) Moderate 09/11/2018 Appointment: Injection [...] of control. 09/05/2018 Appointment: [phone] [facility] [place] (15 min) Moderate 09/05/2018 Patient Education: [...] Summary Completed 06/20/2018 Appointment: Yarely Vega WPtel: [phone] [facility] (30 min) Complex 06/07/2018 Appointment: Injection 06/06/2018 Patient Education: Patient Medication Summary Completed 06/06/2018 Appointment: Yarely Vega WPtel: [phone] [facility] (15 min) Moderate 05/31/2018 Appointment: Injection 05/24/2018 [...] restart flonase 05/03/2018 Appointment: [facility] [phone] [facility] [place] (15 min) Moderate 05/03/2018 Patient Education: [...] surgical intervention. 02/26/2018 Appointment: Yarely Vega WPtel: [facility] [place] (15 min) Moderate 02/26/2018 Patient Education: Patient Medication Summary Completed 02/26/2018 Care Plan: Referral Order SNOMED-CT : [id number] Pending 02/26/2018 Appointment: Injection 02/08/2018 Patient Education: Patient Medication Summary Completed 02/08/2018 Appointment: Injection 01/24/2018 Patient Education: Patient Medication Summary Completed 01/24/2018 Appointment: Injection 01/10/2018 Patient Education: Patient Medication Summary Completed 01/10/2018 Appointment: Injection 12/27/2017 Patient Education: Patient Medication Summary Completed 12/27/2017 Appointment: Yarely Vega WPtel: [facility] [place] (15 min) Moderate 12/26/2017 Visit Plan: Zwsjjw-eoydujocv-kflqfhri protonix-follow up with Dr Escobedo as scheduled Cough-recent bronchitis-symptoms improved-call if symptoms do not completely resolve 12/12/2017 Appointment: Janet Fam WPtel: [phone] [phone] [place] (15 min) Moderate 12/12/2017 Patient Education: Patient Medication Summary Completed 12/12/2017 Visit Plan: Bronchitis - acute case of bronchitis identified. Pt has been given antibiotics, breathing treatments as appropriate, and pt has been instructed to call if symptoms are not improved, or if symptoms acutely worsen. Cough - rx for antibiotics as well as cough medication. 12/04/2017 Appointment: Yarely Vega WPtel: [phone] [facility] (15 min) Moderate 12/04/2017 Patient Education: Patient [...] Fatigue/malaise -Pt was advsied to ask the Rn Lpn Lvn the following: ask the heart doctor if [...] uncontrolled. 11/20/2017 Appointment: Yarely Vega WPtel: [phone] [facility] (15 min) Moderate 11/20/2017 Patient Education: Patient [...] any worse. 09/15/2017 Appointment: Janet Fam WPtel: [phone] [phone] [place] (15 min) Moderate 09/15/2017 Patient Education: Patient Medication Summary Completed 09/15/2017 Appointment: Yarely Vega WPtel: [facility] [place] (15 min) Moderate 09/11/2017 Visit Plan: Skin tear and Cellulitis - The patient was instructed in appropriate wound care. The patient was instructed to use the antibiotic ointment as per RX. The patient is to call for any change in symptoms, increase in size of the lesion, increase in pain, worsening redness, warmth, discharge. 09/07/2017 Appointment: Brianna Otoole WPtel: [facility] [place] (10 min) Simple 09/07/2017 Patient Education: Patient Medication Summary Completed 09/07/2017 Visit Plan: Lipoma - left ankle - talk to dr. barnes about possible surgery/laser for treatment of lipoma. Fatigue/malaise -Pt was advsied to ask the Rn Lpn Lvn the following: ask the heart doctor if there is an alternative to the amiodarone - you may be having side effects from the medication causing you to have pruritus (itching) and feeling like you have body aches, muscle aches, joint pain, fatigue, weight loss (decreased appetite), and pneumonia like symptoms. Congestion - claritin 10mg daily. 08/30/2017 Appointment: Yarely Vega WPtel: [address] [place], [place] [id number] [place] (15 min) Moderate 08/30/2017 Patient Education: Patient Medication Summary Completed 08/30/2017 Appointment: Injection 08/24/2017 Appointment: Yarely Vega WPtel: [facility] [place] (15 min) Moderate 08/24/2017 Patient Education: [...] mucinex 07/06/2017 Appointment: Yarely Vega WPtel: [phone] (15 min) Moderate 07/06/2017 Patient Education: [...] spray. 06/20/2017 Appointment: Brianna Otoole WPtel: [phone] [facility] (15 min) Moderate 06/20/2017 Patient Education: Patient [...] Injection 06/05/2017 Appointment: [phone] [facility] [facility] - Annual Wellness Visit 06/05/2017 Patient [...] q 3 months or q 6 m ont based on previous levels of control. 05/25/2017 Appointment: [phone] [facility] (15 min) Moderate 05/25/2017 Patient Education: Patient [...] wall. Fatigue - pt to discuss with Rn Lpn Lvn about the possibility of amiodarone causing her fatigue/malaise. 03/23/2017 Appointment: [phone] [facility] (15 min) Moderate 03/23/2017 Patient Education: Patient [...] daily. 01/23/2017 Appointment: [phone] [facility] (15 min) Moderate 01/23/2017 Patient Education: Patient [...] improve. 11/02/2016 Appointment: [phone] [facility] [place] (15 min) Moderate 11/02/2016 Patient [...] carafate 09/29/2016 Appointment: [facility]Ptel[facility] [phone] [facility] [place] (15 min) Moderate 09/29/2016 Patient Education: Patient Medication Summary Completed 09/29/2016 Appointment: [facility]Ptel[facility] [phone] [facility] [place] (15 min) Moderate 09/27/2016 Appointment: Yarely Vega WPtel: [facility] [place] (15 min) Moderate 09/20/2016 Appointment: Yarely Vega WPtel: [facility] [place] (15 min) Moderate 09/20/2016 Patient Education: Patient Medication Summary Completed 09/06/2016 Appointment: [facility]Ptel[facility] [phone] [facility] [place] (15 min) Moderate 08/30/2016 Appointment: Injection [...] acute concerns. 07/26/2016 Appointment: [facility]Ptel[facility] [phone] [facility] [place] (15 min) Moderate 07/26/2016 Patient Education: Patient [...] surrogate. 05/30/2016 [facility]ment: [facility] Otoole [facility]Ptel[facility] [phone] [facility] [facility] - Annual Wellness Visit 05/30/2016 Patient [...] bedtime 05/25/2016 Appointment: [facility]Ptel[facility] [phone] [facility] (15 min) Moderate 05/25/2016 Patient Education: Patient Medication Summary Completed 05/25/2016 Patient Education: Obesity Completed 05/25/2016 Care Plan: Referral Order SNOMED-CT : [id number] Pending 05/25/2016 Appointment: Injection 05/10/2016 Patient Education: Patient Medication Summary Completed 05/10/2016 Appointment: Injection 04/26/2016 Patient Education: Patient Medication Summary Completed 04/26/2016 Appointment: Injection 04/11/2016 Patient Education: Patient Medication Summary Completed 04/11/2016 Appointment: Injection 03/31/2016 Patient Education: Patient Medication Summary Completed 03/31/2016 Patient Education: Patient Medication Summary Completed 03/22/2016 Care Plan: SCREENINGMAMMOGRAPHYDIGITAL [facility] : [id number] Pending 03/22/2016 Appointment: Injection 03/15/2016 Patient Education: [...] return, or with any concerns. 02/25/2016 Appointment: Xiang Brianna WPtel: [facility] (15 min) Moderate 02/25/2016 Patient Education: [...] the patients recent sleep study - recommended [place] home patient eval of pt - nocturnal [...] the patients recent sleep study - recommended [place] home patient eval of pt - nocturnal [...] case with Faiza's daughter who had left [facility]. She is interested in looking at assisted living facilities for her mom as Faiza's family is for assisted living placement sooner rather than later. 10/12/2015 Appointment: Yarely Vega WPtel: [facility] (15 min) Moderate 10/12/2015 Patient Education: Patient [...] Completed 08/17/2015 Appointment: [facility]ly [facility]ega [facility]Ptel[facility] [phone] [facility] (15 min) Moderate 08/11/2015 Appointment: Injection 08/06/2015 [...] x 2 05/19/2015 Appointment: Yarely Vega WPtel: [facility] (30 min) Complex 05/19/2015 Patient Education: Patient [...] alprazolam. 01/13/2015 Appointment: [facility]ly [facility]ega [facility]Ptel: [phone] [facility] [place] (15 min) Moderate 01/13/2015 Patient Education: [...] current medications. 12/16/2014 Appointment: Janet Fam WPtel: [phone] [place] ([place]) New Patient 12/16/2014 Patient [...] due to post-nasal drainage - restart flonase B12 and steroid shot today start doxycycline (antibiotic) today if not getting better will give you a steroid pill (prednisone) will send breathing treatments for you to restart. Bronchitis - acute case of bronchitis identified. Pt has been given antibiotics, breathing treatments as appropriate, and pt has been instructed to call if symptoms are not improved, or if symptoms acutely worsen. . Large Hiatal Hernia - discussed with [...] the office will call her DTR benji ([phone]) - with appt information Hypertension - well [...] and understands the consequences of over-medication. . Hypertension - well controlled - continue [...] case with Faiza's daughter who had left [facility]. She is interested in looking [...] [employer] paperwork for health care surrogate. . Kuivje-jxjabujni-csxrynhq protonix-follow up with Dr Escobedo as scheduled Cough-recent bronchitis-symptoms improved-call if symptoms do not completely resolve . Low back pain- ongoing - will [...] Fatigue/malaise -Pt was advsied to ask the Rn Lpn Lvn the following: ask the heart doctor if [...] increase in pain, worsening redness, warmth, discharge. change priolosec to bedtime to see if [...] - cryotherapy of skin lesions x 2 use dry eye drops in the morning and at bedtime. restart the meloxicam . Shoulder pain - suspect a tendon rupture or partial tear - referral to dr pollard for shoulder injections - pt is not interested in surgical intervention. . Hypertension - well controlled - continue [...] the patients recent sleep study - recommended [place] home patient eval of pt - nocturnal [...] pt is to call for acute concerns. melatonin can take 3mg to 10mg at [...] insomnia. Anxiety - continue with prn alprazolam. ask the heart doctor if there is [...] Fatigue/malaise -Pt was advsied to ask the Rn Lpn Lvn the following: ask the heart doctor if there is an alternative to the amiodarone - you may be having side effects from the medication causing you to have pruritus (itching) and feeling like you have body aches, muscle aches, joint pain, fatigue, weight loss (decreased appetite), and pneumonia like symptoms. Congestion - claritin 10mg daily. Schedule thyroid ultrasound Add T3 and [...] situational exposure. No change in current medications. CLARITIN FLONASE KENALOG INJECTION TODAY CALL IF [...] wall. Fatigue - pt to discuss with Rn Lpn Lvn about the possibility of amiodarone causing her [...] the patients recent sleep study - recommended [place] home patient eval of pt - nocturnal oxygen study - will order - if positive oxygen concentrator with humidification. I suspect that she has the nocturnal hypoxemia due to her chronic atrial fibrillation and history of coronary artery disease with chronic systolic heart failure. Stop Keflex Start Doxycycline - probiotic while [...]
--- OUTSIDE RECORDS SUMMARY | 2018-12-05 15:42 | XMS REPORT | CCD ---
Author Author [facility] Organization [facility] Address [address] [place] [address] Phone Care Team Providers Care Seismometer Operator Name Role Phone PP Unavailable CCM Unavailable Summary Purpose Interface Exchange Insurance Providers Payer name Policy type / Coverage type Covered republican ID Effective Begin Date Effective End Date WPS Medicare Part B Medicare Part B [id number] Unknown Principal Life Insurance Medicare Part B [id number] Unknown [employer] in [place] Medicare Part B [id number] Unknown Family history Brother Diagnosis Age At Onset Heart Attack Unknown Mother Diagnosis Age At Onset Hypertension Unknown kidney disease Unknown Stroke Unknown Father Diagnosis Age At Onset Arthritis Unknown Social History Social History Element Codes Description Effective Dates Employment Unknown Retired worked at [employer] 11/20/2017 Marital status Unknown Single 12/16/[address]: 3080844 Former smoker 12/16/[address]: 358940387 Never drinks alcohol 12/16/2014 Allergies, Adverse Reactions, Alerts Substance Reaction Codes Entered Date Inactivated Date Status CODEINE RxNorm: 2670 05/25/2016 No Inactive Date Active ciprofloxacin RxNorm: 82065 12/16/2014 No Inactive Date Active MORPHINE SULFATE [...] I10 Active 12/15/2014 Unknown Vitamin B12 deficiency anemia, unspecified ICD-9: 281.1 ICD-10: D51.9 Active 06/21/2016 Unknown Vitamin B12 deficiency anemia due to [...] ICD-10: I10 12/15/2014 Active Vitamin B12 deficiency anemia, unspecified ICD-9: 281.1 ICD-10: D51.9 06/21/2016 Active Vitamin B12 deficiency anemia due to [...] (vit B-12) 1,000 mcg/mL injection solution RxNorm: 491512 Milliliter(s) Inj 10/23/2018 10/23/2018 Inactive cyanocobalamin (vit B-12) 1,000 mcg/mL injection solution RxNorm: 119139 Milliliter(s) Inj 10/10/2018 10/10/2018 Inactive Flonase Allergy Relief 50 mcg/actuation nasal spray,suspension RxNorm: 6236598 [place] 1 [place] NASAL BID 10/08/2018 04/05/2019 Active cyanocobalamin (vit B-12) 1,000 mcg/mL injection solution RxNorm: 118798 Milliliter(s) Inj 09/27/2018 09/27/2018 Inactive levothyroxine 137 mcg tablet RxNorm: 569523 1 Tablet(s) PO daily 09/12/2018 03/10/2019 Active levothyroxine 137 mcg tablet RxNorm: 656586 1 Tablet(s) PO daily 09/12/2018 09/11/2018 Inactive cyanocobalamin (vit B-12) 1,000 mcg/mL injection solution RxNorm: 724721 Milliliter(s) Inj 09/11/2018 09/11/2018 Inactive levothyroxine 125 mcg tablet RxNorm: 795145 TAKE 1 TABLET BY MOUTH EVERY DAY 09/10/2018 09/11/2018 Inactive Generic For:SYNTHROID 125MCG TAB 09/10/2018 12:06:52 PM cyanocobalamin (vit B-12) 1,000 mcg/mL injection solution RxNorm: 388116 Milliliter(s) Inj 08/29/2018 08/29/2018 Inactive alprazolam 0.25 mg tablet RxNorm: 421348 1 Tablet(s) PO BID 08/21/2018 02/16/2019 Active hydrocodone 5 mg-acetaminophen 325 mg tablet RxNorm: 111103 1-2 Tablet(s) PO Q6 as needed for pain to use for severe pain only 08/20/2018 09/18/2018 Inactive albuterol sulfate 2.5 mg/3 mL (0.083 %) solution for nebulization RxNorm: 169657 3 Milliliter(s) INH Q6 PRN 08/15/2018 No Stop Date Active Aricept 10 mg tablet RxNorm: 810193 1 Tablet(s) PO daily 08/15/2018 08/09/2019 Active liothyronine 5 mcg tablet RxNorm: 233873 Tablet(s) TAKE 1 TABLET BY MOUTH TWICE DAILY 08/15/2018 02/10/2019 Active cyanocobalamin (vit B-12) 1,000 mcg/mL injection solution RxNorm: 709069 Milliliter(s) Inj 08/15/2018 08/15/2018 Inactive Kenalog 40 mg/mL suspension for injection RxNorm: 7227264 Milliliter(s) Inj 08/15/2018 08/15/2018 Inactive doxycycline hyclate 100 mg capsule RxNorm: 9857334 1 Capsule(s) PO BID 08/15/2018 08/24/2018 Inactive cyanocobalamin (vit B-12) 1,000 mcg/mL injection solution RxNorm: 216151 Milliliter(s) Inj 08/01/2018 08/01/2018 Inactive cyanocobalamin (vit B-12) 1,000 mcg/mL injection solution RxNorm: 831894 Milliliter(s) Inj 07/19/2018 07/19/2018 Inactive hydrocodone 5 mg-acetaminophen 325 mg tablet RxNorm: 590079 1-2 Tablet(s) PO Q6 as needed for pain 07/18/2018 08/15/2018 Inactive betamethasone valerate 0.1 % topical ointment RxNorm: 608649 1 TOP BID 07/04/2018 07/03/2018 Inactive applying to skin under nose x 10 days cyanocobalamin (vit B-12) 1,000 mcg/mL injection solution RxNorm: 724256 Milliliter(s) Inj 07/04/2018 07/04/2018 Inactive betamethasone valerate 0.1 % topical ointment RxNorm: 781566 1 TOP BID 07/04/2018 07/13/2018 Inactive applying to skin under nose x 10 days Aricept 10 mg tablet RxNorm: 309027 Tablet(s) 1 Tablet(s) PO daily 06/25/2018 08/14/2018 Inactive cyanocobalamin (vit B-12) 1,000 mcg/mL injection solution RxNorm: 605913 Milliliter(s) Inj 06/20/2018 06/20/2018 Inactive hydrocodone 5 mg-acetaminophen 325 mg tablet RxNorm: 707110 1-2 Tablet(s) PO Q6 as needed for pain 06/20/2018 07/17/2018 Inactive Flonase Allergy Relief 50 mcg/actuation nasal spray,suspension RxNorm: 3768736 [place] 1 [place] NASAL BID 06/20/2018 10/07/2018 Inactive cyanocobalamin (vit B-12) 1,000 mcg/mL injection solution RxNorm: 281675 Milliliter(s) Inj 06/06/2018 06/06/2018 Inactive alprazolam 0.25 mg tablet RxNorm: 477503 1 Tablet(s) PO BID 05/25/2018 08/21/2018 Inactive hydrocodone 5 mg-acetaminophen 325 mg tablet RxNorm: 887128 1-2 Tablet(s) PO Q6 as needed for pain 05/24/2018 06/19/2018 Inactive cyanocobalamin (vit B-12) 1,000 mcg/mL injection solution RxNorm: 327653 Milliliter(s) Inj 05/24/2018 05/24/2018 Inactive cyanocobalamin (vit B-12) 1,000 mcg/mL injection solution RxNorm: 506893 Milliliter(s) Inj 05/09/2018 05/09/2018 Inactive Claritin 10 mg tablet RxNorm: 150256 TAKE 1 TABLET BY MOUTH ONCE DAILY 05/08/2018 05/02/2019 Active Generic For:CLARITIN 10MG 05/07/2018 9:13:47 AM cyanocobalamin (vit B-12) 1,000 mcg/mL injection solution RxNorm: 605977 INJECT ONE 1 ML EVERY TWO WEEKS 05/03/2018 04/03/2019 Active 05/03/2018 9:13:42 AM Mobic 15 mg tablet RxNorm: 779112 Tablet(s) 1 Tablet(s) PO daily 04/26/2018 04/20/2019 Active buspirone 15 mg tablet RxNorm: 654785 Tablet(s) TAKE 1 TABLET BY MOUTH TWICE DAILY 04/26/2018 04/20/2019 Active Generic For:BUSPAR 15MG 05/31/2017 9:19:20 AM Norvasc 5 mg tablet RxNorm: 827045 Tablet(s) 1 Tablet(s) PO daily 04/26/2018 04/20/2019 Active cyanocobalamin (vit B-12) 1,000 mcg/mL injection solution RxNorm: 180211 Milliliter(s) Inj 04/26/2018 04/26/2018 Inactive hydrocodone 5 mg-acetaminophen 325 mg tablet RxNorm: 149938 1-2 Tablet(s) PO Q6 as needed for pain 04/25/2018 05/23/2018 Inactive cyanocobalamin (vit B-12) 1,000 mcg/mL injection solution RxNorm: 013970 Milliliter(s) Inj 04/12/2018 04/12/2018 Inactive Topamax 25 mg tablet RxNorm: 841695 1 Tablet(s) PO BID 04/09/2018 05/02/2018 Inactive Generic For:TOPAMAX 25MG 12/06/2016 9:15:13 AM Zoloft 50 mg tablet RxNorm: 727082 TAKE 1 TABLET BY MOUTH ONCE DAILY 04/04/2018 12/29/2018 Active Generic For:ZOLOFT 50MG 04/04/2018 9:13:25 AM cyanocobalamin (vit B-12) 1,000 mcg/mL injection solution RxNorm: 272821 Milliliter(s) Inj 03/30/2018 03/30/2018 Inactive levothyroxine 125 mcg tablet RxNorm: 788900 TAKE 1 TABLET BY MOUTH EVERY DAY 03/26/2018 09/09/2018 Inactive Generic For:SYNTHROID 125MCG TAB 03/26/2018 9:15:59 AM liothyronine 5 mcg tablet RxNorm: 300566 TAKE 1 TABLET BY MOUTH TWICE DAILY 03/26/2018 08/14/2018 Inactive Generic For:CYTOMEL 5MCG 03/26/2018 9:15:54 AM hydrocodone 5 mg-acetaminophen 325 mg tablet RxNorm: 124407 1-2 Tablet(s) PO Q6 as needed for pain 03/19/2018 04/17/2018 Inactive cyanocobalamin (vit B-12) 1,000 mcg/mL injection solution RxNorm: 903511 Milliliter(s) Inj 03/16/2018 03/16/2018 Inactive Flonase Allergy Relief 50 mcg/actuation nasal spray,suspension RxNorm: 0802699 1 [place] NASAL BID 03/05/2018 06/19/2018 Inactive cyanocobalamin (vit B-12) 1,000 mcg/mL injection solution RxNorm: 436138 Milliliter(s) Inj 03/02/2018 03/02/2018 Inactive alprazolam 0.25 mg tablet RxNorm: 089327 1 Tablet(s) PO BID 02/28/2018 05/27/2018 Inactive cyanocobalamin (vit B-12) 1,000 mcg/mL injection solution RxNorm: 313453 Milliliter(s) Inj 02/08/2018 02/08/2018 Inactive cyanocobalamin (vit B-12) 1,000 mcg/mL injection solution RxNorm: 992845 Milliliter(s) Inj 01/24/2018 01/24/2018 Inactive albuterol sulfate 2.5 mg/3 mL (0.083 %) solution for nebulization RxNorm: 078110 3 Milliliter(s) INH Q6 PRN 01/24/2018 05/02/2018 Inactive Claritin 10 mg tablet RxNorm: 785351 1 Tablet(s) PO daily 01/15/2018 05/07/2018 Inactive cyanocobalamin (vit B-12) 1,000 mcg/mL injection solution RxNorm: 535399 Milliliter(s) Inj 01/10/2018 01/10/2018 Inactive hydrocodone 5 mg-acetaminophen 325 mg tablet RxNorm: 232529 1-2 Tablet(s) PO Q6 as needed for pain 01/09/2018 02/07/2018 Inactive cyanocobalamin (vit B-12) 1,000 mcg/mL injection solution RxNorm: 037858 Milliliter(s) Inj 12/27/2017 12/27/2017 Inactive cyanocobalamin (vit B-12) 1,000 mcg/mL injection solution RxNorm: 383794 1 Milliliter(s) Inj 12/12/2017 12/12/2017 Inactive Zofran ODT 4 mg disintegrating tablet RxNorm: 514157 1 Tablet(s) PO TID as needed 12/08/2017 12/09/2017 Inactive hydrocodone 2.5 mg-guaifenesin 200 mg/5 mL oral solution RxNorm: 922498 5 Milliliter(s) PO 12/04/2017 05/06/2018 Inactive doxycycline hyclate 100 mg capsule RxNorm: 7798829 1 Capsule(s) PO BID 12/04/2017 12/13/2017 Inactive cyanocobalamin (vit B-12) 1,000 mcg/mL injection solution RxNorm: 449836 Milliliter(s) Inj 12/01/2017 12/01/2017 Inactive Flonase Allergy Relief 50 mcg/actuation nasal spray,suspension RxNorm: 3629941 1 [place] NASAL BID 11/20/2017 2018 Inactive cyanocobalamin (vit B-12) 1,000 mcg/mL injection solution RxNorm: 837623 1 Milliliter(s) Inj 11/17/2017 11/17/2017 Inactive hydrocodone 5 mg-acetaminophen 325 mg tablet RxNorm: 988801 1-2 Tablet(s) PO Q6 as needed for pain 11/16/2017 12/15/2017 Inactive cyanocobalamin (vit B-12) 1,000 mcg/mL injection solution RxNorm: 755409 1 Milliliter(s) Inj 11/02/2017 11/02/2017 Inactive hydrocodone 5 mg-acetaminophen 325 mg tablet RxNorm: 433951 1-2 Tablet(s) PO Q6 as needed for pain 10/25/2017 11/15/2017 Inactive Claritin 10 mg tablet RxNorm: 998937 1 Tablet(s) PO daily 10/25/2017 11/19/2017 Inactive albuterol sulfate 2.5 mg/3 mL (0.083 %) solution for nebulization RxNorm: 660047 3 Milliliter(s) INH Q6 PRN 10/25/2017 01/23/2018 Inactive Claritin 10 mg tablet RxNorm: 902729 1 Tablet(s) PO daily 10/25/2017 10/24/2017 Inactive cyanocobalamin (vit B-12) 1,000 mcg/mL injection solution RxNorm: 724862 1 Milliliter(s) Inj 10/20/2017 10/20/2017 Inactive Zoloft 50 mg tablet RxNorm: 522607 TAKE 1 TABLET BY MOUTH ONCE DAILY 10/13/2017 04/03/2018 Inactive Generic For:ZOLOFT 50MG 10/13/2017 8:59:44 AM cyanocobalamin (vit B-12) 1,000 mcg/mL injection solution RxNorm: 085120 Milliliter(s) Inj 10/06/2017 10/06/2017 Inactive liothyronine 5 mcg tablet RxNorm: 492758 TAKE 1 TABLET BY MOUTH TWICE DAILY 10/03/2017 03/25/2018 Inactive Generic For:CYTOMEL 5MCG 10/03/2017 9:13:38 AM cyanocobalamin (vit B-12) 1,000 mcg/mL injection solution RxNorm: 240461 Milliliter(s) Inj 09/21/2017 09/21/2017 Inactive albuterol sulfate 2.5 mg/3 mL (0.083 %) solution for nebulization RxNorm: 851615 3 Milliliter(s) INH Q6 PRN 09/21/2017 10/24/2017 Inactive hydrocodone 5 mg-acetaminophen 325 mg tablet RxNorm: 598056 1-2 Tablet(s) PO Q6 as needed for pain 09/21/2017 10/20/2017 Inactive Kenalog 40 mg/mL suspension for injection RxNorm: 9000789 Milliliter(s) Inj 09/15/2017 09/15/2017 Inactive Keflex 500 mg capsule RxNorm: 262581 1 Capsule(s) PO TID 09/07/2017 09/16/2017 Inactive Please deliver to patient cyanocobalamin (vit B-12) 1,000 mcg/mL injection solution RxNorm: 610178 Milliliter(s) Inj 09/07/2017 09/07/2017 Inactive alprazolam 0.25 mg tablet RxNorm: 327043 1 Tablet(s) PO BID 09/06/2017 02/27/2018 Inactive Aricept 10 mg tablet RxNorm: 294461 1 Tablet(s) PO daily 09/06/2017 06/24/2018 Inactive hydrocodone 5 mg-acetaminophen 325 mg tablet RxNorm: 668206 1-2 Tablet(s) PO Q6 as needed for pain 08/24/2017 09/20/2017 Inactive cyanocobalamin (vit B-12) 1,000 mcg/mL injection solution RxNorm: 583290 Milliliter(s) Inj 08/24/2017 08/24/2017 Inactive Norvasc 5 mg tablet RxNorm: 469402 1 Tablet(s) PO daily 08/18/2017 04/25/2018 Inactive nystatin 100,000 unit/gram topical powder RxNorm: 380240 1 Gram(s) TOP QID 08/17/2017 08/26/2017 Inactive hydrocodone 5 mg-acetaminophen 325 mg tablet RxNorm: 822243 1-2 Tablet(s) PO Q6 as needed for pain 07/25/2017 08/23/2017 Inactive Tamiflu 75 mg capsule RxNorm: 854959 1 Capsule(s) PO BID 07/24/2017 12/11/2017 Inactive nystatin 100,000 unit/gram topical powder RxNorm: 615635 1 Gram(s) TOP QID 07/14/2017 07/22/2017 Inactive levothyroxine 125 mcg tablet RxNorm: 579238 Tablet(s) 1 Tablet(s) PO daily 07/10/2017 01/05/2018 Inactive nystatin 100,000 unit/gram topical powder RxNorm: 731377 1 Gram(s) TOP QID 07/06/2017 07/13/2017 Inactive cyanocobalamin (vit B-12) 1,000 mcg/mL injection solution RxNorm: 926819 Milliliter(s) Inj 07/06/2017 07/06/2017 Inactive Kenalog 40 mg/mL suspension for injection RxNorm: 4725360 1 Milliliter(s) Inj 06/20/2017 06/20/2017 Inactive doxycycline hyclate 100 mg capsule RxNorm: 5669486 1 Capsule(s) PO BID 06/20/2017 06/26/2017 Inactive cyanocobalamin (vit B-12) 1,000 mcg/mL injection solution RxNorm: 176599 Milliliter(s) Inj 06/20/2017 06/20/2017 Inactive Keflex 500 mg capsule RxNorm: 110940 1 Capsule(s) PO TID 06/14/2017 06/23/2017 Inactive Please deliver to patient Mobic 15 mg tablet RxNorm: 754405 1 Tablet(s) PO daily 06/14/2017 04/25/2018 Inactive cyanocobalamin (vit B-12) 1,000 mcg/mL injection solution RxNorm: 755147 Milliliter(s) Inj 06/05/2017 06/05/2017 Inactive buspirone 15 mg tablet RxNorm: 215739 TAKE 1 TABLET BY MOUTH TWICE DAILY 05/31/2017 04/25/2018 Inactive Generic For:BUSPAR 15MG 05/31/2017 9:19:20 AM cyanocobalamin (vit B-12) 1,000 mcg/mL injection solution RxNorm: 988342 Milliliter(s) Inj 05/25/2017 05/25/2017 Inactive hydrocodone 5 mg-acetaminophen 325 mg tablet RxNorm: 091765 1-2 Tablet(s) PO Q6 as needed for pain 05/25/2017 06/23/2017 Inactive amiodarone 200 mg tablet RxNorm: 826373 1/2 Tablet(s) PO daily 05/22/2017 No Stop Date Active cardiology decreased to 100mg daily cyanocobalamin (vit B-12) 1,000 mcg/mL injection solution RxNorm: 674255 Milliliter(s) Inj 05/16/2017 05/16/2017 Inactive Zofran ODT 4 mg disintegrating tablet RxNorm: 408486 1 Tablet(s) PO TID as needed 05/03/2017 05/04/2017 Inactive hydrocodone 5 mg-acetaminophen 325 mg tablet RxNorm: 415800 1-2 Tablet(s) PO Q6 as needed for pain 05/01/2017 05/05/2017 Inactive cyanocobalamin (vit B-12) 1,000 mcg/mL injection solution RxNorm: 928887 1 Milliliter(s) Inj 05/01/2017 05/01/2017 Inactive cyanocobalamin (vit B-12) 1,000 mcg/mL injection solution RxNorm: 299510 INJECT ONE 1 ML EVERY TWO WEEKS 04/26/2017 12/04/2018 Active 04/26/2017 9:08:52 AM Zoloft 50 mg tablet RxNorm: 533560 Tablet(s) TAKE 1 TABLET BY MOUTH DAILY 04/25/2017 10/12/2017 Inactive Generic For:ZOLOFT 50MG cyanocobalamin (vit B-12) 1,000 mcg/mL injection solution RxNorm: 544457 Milliliter(s) Inj 04/18/2017 04/18/2017 Inactive liothyronine 5 mcg tablet RxNorm: 263540 1 Tablet(s) PO BID 04/13/2017 10/02/2017 Inactive cyanocobalamin (vit B-12) 1,000 mcg/mL injection solution RxNorm: 314619 Milliliter(s) Inj 04/06/2017 04/06/2017 Inactive hydrocodone 5 mg-acetaminophen 325 mg tablet RxNorm: 996496 1-2 Tablet(s) PO Q6 as needed for pain 04/06/2017 04/10/2017 Inactive cyanocobalamin (vit B-12) 1,000 mcg/mL injection solution RxNorm: 292890 Milliliter(s) Inj 03/22/2017 03/22/2017 Inactive alprazolam 0.25 mg tablet RxNorm: 524802 1 Tablet(s) PO BID 03/17/2017 12/11/2017 Inactive alprazolam 0.25 mg tablet RxNorm: 826907 1 Tablet(s) PO BID 03/16/2017 09/05/2017 Inactive hydrocodone 5 mg-acetaminophen 325 mg tablet RxNorm: 305074 1-2 Tablet(s) PO Q6 as needed for pain 03/09/2017 03/13/2017 Inactive cyanocobalamin (vit B-12) 1,000 mcg/mL injection solution RxNorm: 748103 Milliliter(s) Inj 03/09/2017 03/09/2017 Inactive cyanocobalamin (vit B-12) 1,000 mcg/mL injection solution RxNorm: 644318 Milliliter(s) Inj 02/23/2017 02/23/2017 Inactive cyanocobalamin (vit B-12) 1,000 mcg/mL injection solution RxNorm: 930506 Milliliter(s) Inj 02/09/2017 02/09/2017 Inactive hydrocodone 5 mg-acetaminophen 325 mg tablet RxNorm: 189592 1-2 Tablet(s) PO Q6 as needed for pain 02/08/2017 02/12/2017 Inactive Topamax 25 mg tablet RxNorm: 588547 1 Tablet(s) PO BID 01/23/2017 05/22/2017 Inactive Generic For:TOPAMAX 25MG 12/06/2016 9:15:13 AM cyanocobalamin (vit B-12) 1,000 mcg/mL injection solution RxNorm: 031516 Milliliter(s) Inj 01/23/2017 01/23/2017 Inactive cyanocobalamin (vit B-12) 1,000 mcg/mL injection solution RxNorm: 044188 Milliliter(s) Inj 01/10/2017 01/10/2017 Inactive hydrocodone 5 mg-acetaminophen 325 mg tablet RxNorm: 410712 1-2 Tablet(s) PO Q6 as needed for pain 01/09/2017 01/13/2017 Inactive cyanocobalamin (vit B-12) 1,000 mcg/mL injection solution RxNorm: 919236 1 Milliliter(s) Inj 12/28/2016 12/28/2016 Inactive cyanocobalamin (vit B-12) 1,000 mcg/mL injection solution RxNorm: 714607 Milliliter(s) Inj 12/14/2016 12/14/2016 Inactive buspirone 15 mg tablet RxNorm: 160500 1 Tablet(s) PO BID 12/12/2016 05/30/2017 Inactive hydrocodone 5 mg-acetaminophen 325 mg tablet RxNorm: 555048 1-2 Tablet(s) PO Q6 as needed for pain 12/08/2016 12/12/2016 Inactive Topamax 25 mg tablet RxNorm: 804568 TAKE 1 TABLET BY MOUTH EVERY DAY AT BEDTIME 12/06/2016 01/22/2017 Inactive Generic For:TOPAMAX 25MG 12/06/2016 9:15:13 AM Lac-Hydrin Five 5 % lotion RxNorm: 686186 1 Gram(s) TOP daily 12/02/2016 05/02/2018 Inactive cyanocobalamin (vit B-12) 1,000 mcg/mL injection solution RxNorm: 800088 Milliliter(s) Inj 11/24/2016 11/24/2016 Inactive Ceftin 500 mg tablet RxNorm: 130100 1 Tablet(s) PO BID 11/11/2016 06/13/2017 Inactive Cipro 500 mg tablet RxNorm: 018994 1 Tablet(s) PO BID 11/11/2016 11/10/2016 Inactive Cipro 500 mg tablet RxNorm: 312296 1 Tablet(s) PO BID 11/11/2016 11/11/2016 Inactive cyanocobalamin (vit B-12) 1,000 mcg/mL injection solution RxNorm: 920573 1 Milliliter(s) Inj 11/07/2016 11/07/2016 Inactive hydrocodone 5 mg-acetaminophen 325 mg tablet RxNorm: 337269 1-2 Tablet(s) PO Q6 as needed for pain 11/02/2016 11/06/2016 Inactive cyanocobalamin (vit B-12) 1,000 mcg/mL injection solution RxNorm: 523136 Milliliter(s) Inj 10/24/2016 10/24/2016 Inactive levothyroxine 125 mcg tablet RxNorm: 290465 Tablet(s) 1 Tablet(s) PO daily 10/24/2016 04/21/2017 Inactive liothyronine 5 mcg tablet RxNorm: 231613 1 Tablet(s) PO BID 10/24/2016 04/12/2017 Inactive hydrocodone 5 mg-acetaminophen 325 mg tablet RxNorm: 407696 1-2 Tablet(s) PO Q6 as needed for pain 10/17/2016 10/21/2016 Inactive Keflex 500 mg capsule RxNorm: 698676 1 Capsule(s) PO TID 10/07/2016 10/06/2016 Inactive Keflex 500 mg capsule RxNorm: 234434 1 Capsule(s) PO TID 10/07/2016 10/16/2016 Inactive Please deliver to patient cyanocobalamin (vit B-12) 1,000 mcg/mL injection solution RxNorm: 273829 1 Milliliter(s) Inj 09/29/2016 09/29/2016 Inactive alprazolam 0.25 mg tablet RxNorm: 227960 1 Tablet(s) PO BID 09/20/2016 03/16/2017 Inactive Cozaar 100 mg tablet RxNorm: 651156 1 Tablet(s) PO daily 09/14/2016 No Stop Date Active metoprolol tartrate 50 mg tablet RxNorm: 815682 1/2 Tablet(s) PO BID 09/14/2016 12/12/2016 Inactive Zoloft 50 mg tablet RxNorm: 298865 Tablet(s) TAKE 1 TABLET BY MOUTH DAILY 09/14/2016 03/12/2017 Inactive Generic For:ZOLOFT 50MG liothyronine 5 mcg tablet RxNorm: 458921 1 Tablet(s) PO BID 09/14/2016 10/23/2016 Inactive Calmoseptine 0.44 %-20.6 % topical ointment RxNorm: 793711 1 Application TOP BID and as needed to sore on buttocks 09/07/2016 No Stop Date Active cyanocobalamin (vit B-12) 1,000 mcg/mL injection solution RxNorm: 344421 Milliliter(s) Inj 08/29/2016 08/29/2016 Inactive hydrocodone 5 mg-acetaminophen 325 mg tablet RxNorm: 624255 1-2 Tablet(s) PO Q6 as needed for pain 08/29/2016 10/16/2016 Inactive levothyroxine 125 mcg tablet RxNorm: 036769 1 Tablet(s) PO daily 08/25/2016 10/23/2016 Inactive Topamax 25 mg tablet RxNorm: 927970 TAKE 1 TABLET BY MOUTH EVERY DAY AT BEDTIME 08/17/2016 12/05/2016 Inactive Generic For:TOPAMAX 25MG 08/17/2016 2:14:37 PM hydrocodone 5 mg-acetaminophen 325 mg tablet RxNorm: 350140 1-2 Tablet(s) PO Q6 as needed for pain 08/11/2016 08/28/2016 Inactive hydrocodone 5 mg-acetaminophen 325 mg tablet RxNorm: 475175 1 -2 Tablet(s) PO Q6 as needed for pain 08/11/2016 08/18/2016 Inactive hydrocodone 5 mg-acetaminophen 325 mg tablet RxNorm: 171141 1 Tablet(s) PO Q6 as needed for pain 08/05/2016 08/10/2016 Inactive cyanocobalamin (vit B-12) 1,000 mcg/mL injection solution RxNorm: 124744 Milliliter(s) Inj 08/04/2016 08/04/2016 Inactive Norvasc 10 mg tablet RxNorm: 470566 1 Tablet(s) PO daily 07/26/2016 07/20/2017 Inactive alprazolam 0.25 mg tablet RxNorm: 535978 1 Tablet(s) PO QHS 07/21/2016 09/19/2016 Inactive Norvasc 5 mg tablet RxNorm: 821912 1 Tablet(s) PO daily 07/21/2016 07/25/2016 Inactive levothyroxine 125 mcg tablet RxNorm: 117719 1 Tablet(s) PO daily 07/21/2016 12/11/2017 Inactive cyanocobalamin (vit B-12) 1,000 mcg/mL injection solution RxNorm: 264909 Milliliter(s) Inj 07/21/2016 07/21/2016 Inactive Zoloft 50 mg tablet RxNorm: 828862 Tablet(s) TAKE 1 TABLET BY MOUTH DAILY 07/21/2016 09/13/2016 Inactive Generic For:ZOLOFT 50MG cyanocobalamin (vit B-12) 1,000 mcg/mL injection solution RxNorm: 912427 1 Milliliter(s) Inj 07/05/2016 07/05/2016 Inactive cyanocobalamin (vit B-12) 1,000 mcg/mL injection solution RxNorm: 397666 1 Milliliter(s) Inj 06/22/2016 06/22/2016 Inactive cyanocobalamin (vit B-12) 1,000 mcg/mL injection solution RxNorm: 793637 Milliliter(s) Inj 06/09/2016 06/09/2016 Inactive Aricept 10 mg tablet RxNorm: 413418 1 Tablet(s) PO daily 05/27/2016 05/21/2017 Inactive Mobic 15 mg tablet RxNorm: 953835 1 Tablet(s) PO daily 05/27/2016 05/21/2017 Inactive levothyroxine 125 mcg tablet RxNorm: 775085 1 Tablet(s) PO daily 05/25/2016 07/20/2016 Inactive cyanocobalamin (vit B-12) 1,000 mcg/mL injection solution RxNorm: 946332 1 Milliliter(s) Inj 05/25/2016 05/25/2016 Inactive doxycycline hyclate 100 mg capsule RxNorm: 2546042 1 Capsule(s) PO BID 05/16/2016 05/15/2016 Inactive doxycycline hyclate 100 mg capsule RxNorm: 2272047 1 Capsule(s) PO BID 05/16/2016 05/22/2016 Inactive cyanocobalamin (vit B-12) 1,000 mcg/mL injection solution RxNorm: 436949 Milliliter(s) Inj 05/10/2016 05/10/2016 Inactive cyanocobalamin (vit B-12) 1,000 mcg/mL injection solution RxNorm: 957192 Milliliter(s) Inj 04/26/2016 04/26/2016 Inactive Topamax 25 mg tablet RxNorm: 637469 1 Tablet(s) PO QPM 04/22/2016 08/16/2016 Inactive cyanocobalamin (vit B-12) 1,000 mcg/mL injection solution RxNorm: 014275 Milliliter(s) 1 Milliliter(s) Inj P2rveth 04/11/2016 12/31/2017 Inactive liothyronine 5 mcg tablet RxNorm: 662161 1 Tablet(s) PO BID 04/11/2016 09/13/2016 Inactive cyanocobalamin (vit B-12) 1,000 mcg/mL injection solution RxNorm: 688842 Milliliter(s) Inj 04/11/2016 04/11/2016 Inactive cyanocobalamin (vit B-12) 1,000 mcg/mL injection solution RxNorm: 054083 Milliliter(s) Inj 03/31/2016 03/31/2016 Inactive cyanocobalamin (vit B-12) 1,000 mcg/mL injection solution RxNorm: 322048 1 Milliliter(s) Inj 03/15/2016 03/15/2016 Inactive levothyroxine 125 mcg tablet RxNorm: 641496 1 Tablet(s) PO daily 2016 03/03/2016 Inactive levothyroxine 125 mcg tablet RxNorm: 712461 1 Tablet(s) PO daily 2016 05/24/2016 Inactive cyanocobalamin (vit B-12) 1,000 mcg/mL injection solution RxNorm: 849621 Milliliter(s) Inj 02/25/2016 02/25/2016 Inactive cyanocobalamin (vit B-12) 1,000 mcg/mL injection solution RxNorm: 850945 1 Milliliter(s) Inj 02/02/2016 02/02/2016 Inactive sucralfate 1 gram tablet RxNorm: 097682 1 Tablet(s) PO QHS 01/25/2016 No Stop Date Active amiodarone 200 mg tablet RxNorm: 044742 1/2 Tablet(s) PO BID 01/25/2016 05/21/2017 Inactive cyanocobalamin (vit B-12) 1,000 mcg/mL injection solution RxNorm: 845757 Milliliter(s) Inj 01/18/2016 01/18/2016 Inactive cyanocobalamin (vit B-12) 1,000 mcg/mL injection solution RxNorm: 697477 Milliliter(s) Inj 12/29/2015 12/29/2015 Inactive Topamax 25 mg tablet RxNorm: 785665 1 Tablet(s) PO QPM 12/08/2015 04/05/2016 Inactive cyanocobalamin (vit B-12) 1,000 mcg/mL injection solution RxNorm: 590645 Milliliter(s) Inj 12/08/2015 12/08/2015 Inactive Bactrim DS 800 mg-160 mg tablet RxNorm: 324095 1 Tablet(s) PO BID 11/23/2015 11/22/2015 Inactive cyanocobalamin (vit B-12) 1,000 mcg/mL injection solution RxNorm: 102311 Milliliter(s) Inj 11/23/2015 11/23/2015 Inactive Bactrim DS 800 mg-160 mg tablet RxNorm: 411448 1 Tablet(s) PO BID 11/23/2015 11/29/2015 Inactive cyanocobalamin (vit B-12) 1,000 mcg/mL injection solution RxNorm: 624765 Milliliter(s) Inj 11/11/2015 11/11/2015 Inactive amoxicillin 500 mg capsule RxNorm: 979111 1 Capsule(s) PO TID 11/10/2015 11/19/2015 Inactive Zithromax Z-Henrique 250 mg tablet RxNorm: 120775 1 Tablet(s) PO UD 11/10/2015 01/24/2016 Inactive zpack x 1 amoxicillin 500 mg capsule RxNorm: 044749 1 Capsule(s) PO TID 11/10/2015 11/09/2015 Inactive cyanocobalamin (vit B-12) 1,000 mcg/mL injection solution RxNorm: 642708 1 Milliliter(s) Inj 10/29/2015 10/29/2015 Inactive [place] 3 capsule RxNorm: 1 Capsule(s) PO QAM , 2 Capsules at noon, 1 Capsule QHS 10/13/2015 No Stop Date Active potassium chloride ER 20 mEq tablet,extended release RxNorm: 186656 2 Tablet(s) PO daily at noon 10/13/2015 No Stop Date Active alprazolam 0.25 mg tablet RxNorm: 527196 1 Tablet(s) PO QHS 10/13/2015 07/20/2016 Inactive amiodarone 200 mg tablet RxNorm: 611909 1 Tablet(s) PO BID 10/13/2015 01/24/2016 Inactive cyanocobalamin (vit B-12) 1,000 mcg/mL injection solution RxNorm: 955450 1 Milliliter(s) Inj 10/12/2015 10/12/2015 Inactive Zofran 4 mg tablet RxNorm: 716150 1 Tablet(s) PO daily as needed 10/07/2015 05/24/2016 Inactive Zoloft 50 mg tablet RxNorm: 304953 TAKE 1 TABLET BY MOUTH DAILY 10/05/2015 05/01/2016 Inactive Generic For:ZOLOFT 50MG cyanocobalamin (vit B-12) 1,000 mcg/mL injection solution RxNorm: 616109 1 Milliliter(s) Inj 09/29/2015 09/29/2015 Inactive cyanocobalamin (vit B-12) 1,000 mcg/mL injection solution RxNorm: 090218 1 Milliliter(s) Inj 09/17/2015 09/17/2015 Inactive Norvasc 5 mg tablet RxNorm: 797307 1 Tablet(s) PO daily 09/17/2015 07/20/2016 Inactive liothyronine 5 mcg tablet RxNorm: 793142 1 Tablet(s) PO BID 09/17/2015 03/14/2016 Inactive Zoloft 50 mg tablet RxNorm: 703052 1 Tablet(s) PO daily 09/17/2015 10/04/2015 Inactive buspirone 15 mg tablet RxNorm: 127120 1 Tablet(s) PO BID 09/17/2015 09/10/2016 Inactive buspirone 15 mg tablet RxNorm: 807211 1 Tablet(s) PO BID 09/14/2015 09/16/2015 Inactive Topamax 25 mg tablet RxNorm: 421481 1 Tablet(s) PO QPM 09/03/2015 12/07/2015 Inactive cyanocobalamin (vit B-12) 1,000 mcg/mL injection solution RxNorm: 651802 1 Milliliter(s) Inj 09/03/2015 09/03/2015 Inactive cyanocobalamin (vit B-12) 1,000 mcg/mL injection solution RxNorm: 324478 Milliliter(s) Inj 08/17/2015 08/17/2015 Inactive cyanocobalamin (vit B-12) 1,000 mcg/mL injection solution RxNorm: 041547 Milliliter(s) Inj 08/06/2015 08/06/2015 Inactive levothyroxine 150 mcg tablet RxNorm: 500598 1 Tablet(s) PO daily 07/22/2015 03/03/2016 Inactive Aricept 10 mg tablet RxNorm: 222796 1 Tablet(s) PO daily 07/22/2015 05/26/2016 Inactive Mobic 15 mg tablet RxNorm: 376737 1 Tablet(s) PO daily 07/22/2015 05/26/2016 Inactive cyanocobalamin (vit B-12) 1,000 mcg/mL injection solution RxNorm: 831791 Milliliter(s) Inj 07/22/2015 07/22/2015 Inactive liothyronine 5 mcg tablet RxNorm: 327780 1 Tablet(s) PO BID 07/22/2015 09/16/2015 Inactive cyanocobalamin (vit B-12) 1,000 mcg/mL injection solution RxNorm: 239073 Milliliter(s) Inj 07/08/2015 07/08/2015 Inactive cyanocobalamin (vit B-12) 1,000 mcg/mL injection solution RxNorm: 840853 Milliliter(s) Inj 06/23/2015 06/23/2015 Inactive cyanocobalamin (vit B-12) 1,000 mcg/mL injection solution RxNorm: 150356 1 Milliliter(s) Inj 06/08/2015 06/08/2015 Inactive cyanocobalamin (vit B-12) 1,000 mcg/mL injection solution RxNorm: 618158 Milliliter(s) Inj 05/27/2015 05/27/2015 Inactive Aricept 10 mg tablet RxNorm: 408322 1 Tablet(s) PO daily 05/20/2015 07/21/2015 Inactive Zofran 4 mg tablet RxNorm: 017002 1 Tablet(s) PO daily as needed 05/20/2015 06/18/2015 Inactive alprazolam 0.25 mg tablet RxNorm: 980790 1 Tablet(s) PO BID 05/20/2015 10/12/2015 Inactive Mobic 15 mg tablet RxNorm: 130109 1 Tablet(s) PO daily 05/20/2015 07/21/2015 Inactive tramadol ER 100 mg tablet,extended release 24 hr RxNorm: 262624 1 Tablet(s) PO Q6 as needed 05/13/2015 No Stop Date Active cyanocobalamin (vit B-12) 1,000 mcg/mL injection solution RxNorm: 092110 1 Milliliter(s) Inj 05/12/2015 05/12/2015 Inactive Topamax 25 mg tablet RxNorm: 322078 1 Tablet(s) PO BID (start at one pill at bedtime x 1week then twice daily thereafter) 05/12/2015 09/02/2015 Inactive cyanocobalamin (vit B-12) 1,000 mcg/mL injection kit RxNorm: 238165 kit Inj 04/30/2015 04/30/2015 Inactive cyanocobalamin (vit B-12) 1,000 mcg/mL injection solution RxNorm: 484973 Milliliter(s) Inj 04/16/2015 04/16/2015 Inactive levothyroxine 150 mcg tablet RxNorm: 228111 1 Tablet(s) PO daily 04/08/2015 07/21/2015 Inactive cyanocobalamin (vit B-12) 1,000 mcg/mL injection solution RxNorm: 025410 Milliliter(s) 1 Milliliter(s) Inj [id number] 04/08/2015 04/10/2016 Inactive Cytomel 5 mcg tablet RxNorm: 442584 1 Tablet(s) PO BID 04/08/2015 10/12/2015 Inactive Cytomel 5 mcg tablet RxNorm: 250524 1 Tablet(s) PO BID 04/07/2015 04/07/2015 Inactive Cytomel 5 mcg tablet RxNorm: 028535 1 Tablet(s) PO BID 04/07/2015 04/06/2015 Inactive cyanocobalamin (vit B-12) 1,000 mcg/mL injection solution RxNorm: 240445 Milliliter(s) Inj 04/02/2015 04/02/2015 Inactive cyanocobalamin (vit B-12) 1,000 mcg/mL injection solution RxNorm: 910106 Milliliter(s) Inj 03/18/2015 03/18/2015 Inactive cyanocobalamin (vit B-12) 1,000 mcg/mL injection solution RxNorm: 263260 Milliliter(s) 1 Milliliter(s) Inj [id number] 03/18/2015 04/07/2015 Inactive cyanocobalamin (vit B-12) 1,000 mcg/mL injection solution RxNorm: 485573 1 Milliliter(s) Inj [id number] 03/16/2015 03/17/2015 Inactive cyanocobalamin (vit B-12) 1,000 mcg/mL injection solution RxNorm: 065077 Milliliter(s) Inj 03/03/2015 03/03/2015 Inactive cyanocobalamin (vit B-12) 1,000 mcg/mL injection solution RxNorm: 875110 Milliliter(s) Inj 02/18/2015 02/18/2015 Inactive cyanocobalamin (vit B-12) 1,000 mcg/mL injection solution RxNorm: 641746 Milliliter(s) Inj 02/04/2015 02/04/2015 Inactive cyanocobalamin (vit B-12) 1,000 mcg/mL injection solution RxNorm: 495005 Milliliter(s) Inj 01/22/2015 01/22/2015 Inactive Lac-Hydrin Five 5 % lotion RxNorm: 774930 1 TOP daily 01/13/2015 03/13/2015 Inactive Lac-Hydrin Five 5 % lotion RxNorm: 156426 1 TOP daily 01/13/2015 01/12/2015 Inactive cyanocobalamin (vit B-12) 1,000 mcg/mL injection solution RxNorm: 951158 Milliliter(s) Inj 01/08/2015 01/08/2015 Inactive cyanocobalamin (vit B-12) 1,000 mcg/mL injection solution RxNorm: 482920 Milliliter(s) Inj 12/25/2014 12/25/2014 Inactive levothyroxine 150 mcg tablet RxNorm: 269118 1 Tablet(s) PO daily 12/24/2014 04/07/2015 Inactive tramadol 50 mg tablet RxNorm: 551199 1-2 Tablet(s) PO Q6 as needed 12/17/2014 05/12/2015 Inactive alprazolam 0.25 mg tablet RxNorm: 980663 1 Tablet(s) PO BID 12/17/2014 04/15/2015 Inactive Pradaxa 150 mg capsule RxNorm: 8327866 1 Capsule(s) PO BID 12/16/2014 No Stop Date Active metoprolol tartrate 50 mg tablet RxNorm: 350119 1/2 Tablet(s) PO BID 12/16/2014 09/13/2016 Inactive buspirone 15 mg tablet RxNorm: 574340 1 Tablet(s) PO BID 12/16/2014 09/13/2015 Inactive cyanocobalamin (vit B-12) 1,000 mcg/mL injection solution RxNorm: 640699 1 Milliliter(s) Inj P3lfyor 12/16/2014 03/15/2015 Inactive cyanocobalamin (vit B-12) 1,000 mcg/mL injection solution RxNorm: 678725 1 Milliliter(s) Inj [id number] 12/16/2014 12/15/2014 Inactive sucralfate 1 gram tablet RxNorm: 810817 Tablet(s) PO QID 12/16/2014 12/10/2015 Inactive cyanocobalamin (vit B-12) 1,000 mcg/mL injection solution RxNorm: 821256 Milliliter(s) Inj 12/10/2014 12/10/2014 Inactive cyanocobalamin (vit B-12) 1,000 mcg/mL injection solution RxNorm: 363033 Milliliter(s) Inj 11/26/2014 11/26/2014 Inactive Zoloft 50 mg tablet RxNorm: 594663 1 Tablet(s) PO daily 11/24/2014 06/21/2015 Inactive Zoloft 50 mg tablet RxNorm: 857776 1 Tablet(s) PO daily 11/24/2014 11/23/2014 Inactive cyanocobalamin (vit B-12) 1,000 mcg/mL injection kit RxNorm: 296867 Milliliter(s) Inj 11/12/2014 11/12/2014 Inactive cyanocobalamin (vit B-12) 1,000 mcg/mL injection solution RxNorm: 807904 Milliliter(s) Inj 10/28/2014 10/28/2014 Inactive [SAVINGS FOR NON-COVERED DRUGS -- BIN:[id number], PCN: [id number], Group: [id number], ID# [id number], Questions: . THIS IS NOT INSURANCE.] promethazine oral RxNorm: 8745 oral No Start Date Active tramadol 50 mg tablet RxNorm: 726773 1 Tablet(s) PO TID No Start Date Active digoxin 125 mcg tablet RxNorm: 413780 Tablet(s) PO every other day No Start Date Active furosemide 40 mg tablet RxNorm: 877266 1 Tablet(s) PO daily No Start Date Active Vitamin D3 5,000 unit tablet RxNorm: 605224 1 Tablet(s) PO daily No Start Date Active erythromycin 250 mg capsule,delayed release RxNorm: 811542 1 Capsule(s) PO AC No Start Date Active Protonix 40 mg tablet,delayed release RxNorm: 367804 1 Tablet(s) PO BID No Start Date Active Cozaar 100 mg tablet RxNorm: 861537 1 Tablet(s) PO daily No Start Date 09/13/2016 Inactive sucralfate 1 gram tablet RxNorm: 206532 Tablet(s) PO QID No Start Date 12/15/2014 Inactive amiodarone 200 mg tablet RxNorm: 634157 2 Tablet(s) PO daily No Start Date 10/13/2015 Inactive buspirone 15 mg tablet RxNorm: 223244 1 Tablet(s) PO daily No Start Date 12/15/2014 Inactive potassium chloride ER 20 mEq tablet,extended release RxNorm: 795871 1 Tablet(s) PO daily No Start Date 10/12/2015 Inactive Prilosec 40 mg capsule,delayed release RxNorm: 536297 1 Capsule(s) PO daily No Start Date 09/02/2015 Inactive [place] 3 capsule RxNorm: Capsule(s) PO No Start Date 10/12/2015 Inactive alprazolam 0.25 mg tablet RxNorm: 786858 Tablet(s) PO QHS No Start Date 12/16/2014 Inactive levothyroxine 125 mcg tablet RxNorm: 783678 1 Tablet(s) PO daily No Start Date 12/23/2014 Inactive liothyronine 5 mcg tablet RxNorm: 964680 1 Tablet(s) PO BID No Start Date 07/21/2015 Inactive Mobic 15 mg tablet RxNorm: 395472 Tablet(s) PO daily No Start Date 05/19/2015 Inactive Norvasc 5 mg tablet RxNorm: 204432 1 Tablet(s) PO daily No Start Date 09/16/2015 Inactive Zofran 4 mg tablet RxNorm: 712040 1 Tablet(s) PO daily as needed No Start Date 05/19/2015 Inactive Tamiflu 75 mg capsule RxNorm: 371879 1 Capsule(s) PO BID No Start Date 07/23/2017 Inactive tramadol 50 mg tablet RxNorm: 072964 1 Tablet(s) PO daily as needed No Start Date 12/16/2014 Inactive amiodarone 200 mg tablet RxNorm: 956548 1 Tablet(s) PO daily No Start Date 10/12/2015 Inactive Zofran ODT 4 mg disintegrating tablet RxNorm: 820681 1 Tablet(s) PO TID as needed No Start Date 05/02/2017 Inactive albuterol sulfate 2.5 mg/3 mL (0.083 %) solution for nebulization RxNorm: 505934 3 Milliliter(s) INH Q6 PRN No Start Date 09/20/2017 Inactive meclizine 25 mg tablet RxNorm: 480420 Tablet(s) PO as needed No Start Date 05/24/2016 Inactive Pradaxa 150 mg capsule RxNorm: 5205165 1 Capsule(s) PO daily No Start Date 12/15/2014 Inactive metoprolol tartrate 50 mg tablet RxNorm: 641217 1/2 Tablet(s) PO No Start Date 12/15/2014 Inactive Aricept 10 mg tablet RxNorm: 519177 Tablet(s) PO daily No Start Date 05/19/2015 Inactive Calmoseptine 0.44 %-20.6 % topical ointment RxNorm: 723233 1 Application TOP BID and as needed to sore on buttocks No Start Date 09/06/2016 Inactive Zithromax Z-Henrique 250 mg tablet RxNorm: 138016 1 Tablet(s) PO UD No Start Date 11/09/2015 Inactive zpack x 1 Medication Administered Medication Codes Instructions Start Date Status cyanocobalamin (vit B-12) 1,000 mcg/mL injection solution RxNorm: 917512 Milliliter 10/23/2018 No longer Active cyanocobalamin (vit B-12) 1,000 mcg/mL injection solution RxNorm: 979196 Milliliter 10/10/2018 No longer Active cyanocobalamin (vit B-12) 1,000 mcg/mL injection solution RxNorm: 542515 Milliliter 09/27/2018 No longer Active cyanocobalamin (vit B-12) 1,000 mcg/mL injection solution RxNorm: 990143 Milliliter 09/11/2018 No longer Active cyanocobalamin (vit B-12) 1,000 mcg/mL injection solution RxNorm: 728312 Milliliter 08/29/2018 No longer Active cyanocobalamin (vit B-12) 1,000 mcg/mL injection solution RxNorm: 622192 Milliliter 08/15/2018 No longer Active Kenalog 40 mg/mL suspension for injection RxNorm: 4517528 Milliliter 08/15/2018 No longer Active cyanocobalamin (vit B-12) 1,000 mcg/mL injection solution RxNorm: 467446 Milliliter 08/01/2018 No longer Active cyanocobalamin (vit B-12) 1,000 mcg/mL injection solution RxNorm: 023849 Milliliter 07/19/2018 No longer Active cyanocobalamin (vit B-12) 1,000 mcg/mL injection solution RxNorm: 755411 Milliliter 07/04/2018 No longer Active cyanocobalamin (vit B-12) 1,000 mcg/mL injection solution RxNorm: 369616 Milliliter 06/20/2018 No longer Active cyanocobalamin (vit B-12) 1,000 mcg/mL injection solution RxNorm: 517043 Milliliter 06/06/2018 No longer Active cyanocobalamin (vit B-12) 1,000 mcg/mL injection solution RxNorm: 135131 Milliliter 05/24/2018 No longer Active cyanocobalamin (vit B-12) 1,000 mcg/mL injection solution RxNorm: 595796 Milliliter 05/09/2018 No longer Active cyanocobalamin (vit B-12) 1,000 mcg/mL injection solution RxNorm: 175380 Milliliter 04/26/2018 No longer Active cyanocobalamin (vit B-12) 1,000 mcg/mL injection solution RxNorm: 585046 Milliliter 04/12/2018 No longer Active cyanocobalamin (vit B-12) 1,000 mcg/mL injection solution RxNorm: 817755 Milliliter 03/30/2018 No longer Active cyanocobalamin (vit B-12) 1,000 mcg/mL injection solution RxNorm: 735030 Milliliter 03/16/2018 No longer Active cyanocobalamin (vit B-12) 1,000 mcg/mL injection solution RxNorm: 378751 Milliliter 03/02/2018 No longer Active cyanocobalamin (vit B-12) 1,000 mcg/mL injection solution RxNorm: 309559 Milliliter 02/08/2018 No longer Active cyanocobalamin (vit B-12) 1,000 mcg/mL injection solution RxNorm: 343593 Milliliter 01/24/2018 No longer Active cyanocobalamin (vit B-12) 1,000 mcg/mL injection solution RxNorm: 380966 Milliliter 01/10/2018 No longer Active cyanocobalamin (vit B-12) 1,000 mcg/mL injection solution RxNorm: 202227 Milliliter 12/27/2017 No longer Active cyanocobalamin (vit B-12) 1,000 mcg/mL injection solution RxNorm: 504289 1Milliliter 12/12/2017 No longer Active cyanocobalamin (vit B-12) 1,000 mcg/mL injection solution RxNorm: 046647 Milliliter 12/01/2017 No longer Active cyanocobalamin (vit B-12) 1,000 mcg/mL injection solution RxNorm: 486124 1Milliliter 11/17/2017 No longer Active cyanocobalamin (vit B-12) 1,000 mcg/mL injection solution RxNorm: 294101 1Milliliter 11/02/2017 No longer Active cyanocobalamin (vit B-12) 1,000 mcg/mL injection solution RxNorm: 201877 1Milliliter 10/20/2017 No longer Active cyanocobalamin (vit B-12) 1,000 mcg/mL injection solution RxNorm: 668534 Milliliter 10/06/2017 No longer Active cyanocobalamin (vit B-12) 1,000 mcg/mL injection solution RxNorm: 549419 Milliliter 09/21/2017 No longer Active Kenalog 40 mg/mL suspension for injection RxNorm: 3868809 Milliliter 09/15/2017 No longer Active cyanocobalamin (vit B-12) 1,000 mcg/mL injection solution RxNorm: 076053 Milliliter 09/07/2017 No longer Active cyanocobalamin (vit B-12) 1,000 mcg/mL injection solution RxNorm: 859618 Milliliter 08/24/2017 No longer Active cyanocobalamin (vit B-12) 1,000 mcg/mL injection solution RxNorm: 181419 Milliliter 07/06/2017 No longer Active Kenalog 40 mg/mL suspension for injection RxNorm: 2575266 1Milliliter 06/20/2017 No longer Active cyanocobalamin (vit B-12) 1,000 mcg/mL injection solution RxNorm: 743658 Milliliter 06/20/2017 No longer Active cyanocobalamin (vit B-12) 1,000 mcg/mL injection solution RxNorm: 095271 Milliliter 06/05/2017 No longer Active cyanocobalamin (vit B-12) 1,000 mcg/mL injection solution RxNorm: 966063 Milliliter 05/25/2017 No longer Active cyanocobalamin (vit B-12) 1,000 mcg/mL injection solution RxNorm: 577258 Milliliter 05/16/2017 No longer Active cyanocobalamin (vit B-12) 1,000 mcg/mL injection solution RxNorm: 781464 1Milliliter 05/01/2017 No longer Active cyanocobalamin (vit B-12) 1,000 mcg/mL injection solution RxNorm: 533103 Milliliter 04/18/2017 No longer Active cyanocobalamin (vit B-12) 1,000 mcg/mL injection solution RxNorm: 512529 Milliliter 04/06/2017 No longer Active cyanocobalamin (vit B-12) 1,000 mcg/mL injection solution RxNorm: 621030 Milliliter 03/22/2017 No longer Active cyanocobalamin (vit B-12) 1,000 mcg/mL injection solution RxNorm: 524724 Milliliter 03/09/2017 No longer Active cyanocobalamin (vit B-12) 1,000 mcg/mL injection solution RxNorm: 550063 Milliliter 02/23/2017 No longer Active cyanocobalamin (vit B-12) 1,000 mcg/mL injection solution RxNorm: 926471 Milliliter 02/09/2017 No longer Active cyanocobalamin (vit B-12) 1,000 mcg/mL injection solution RxNorm: 904548 Milliliter 01/23/2017 No longer Active cyanocobalamin (vit B-12) 1,000 mcg/mL injection solution RxNorm: 408130 Milliliter 01/10/2017 No longer Active cyanocobalamin (vit B-12) 1,000 mcg/mL injection solution RxNorm: 219395 1Milliliter 12/28/2016 No longer Active cyanocobalamin (vit B-12) 1,000 mcg/mL injection solution RxNorm: 195238 Milliliter 12/14/2016 No longer Active cyanocobalamin (vit B-12) 1,000 mcg/mL injection solution RxNorm: 487152 Milliliter 11/24/2016 No longer Active cyanocobalamin (vit B-12) 1,000 mcg/mL injection solution RxNorm: 676244 1Milliliter 11/07/2016 No longer Active cyanocobalamin (vit B-12) 1,000 mcg/mL injection solution RxNorm: 832975 Milliliter 10/24/2016 No longer Active cyanocobalamin (vit B-12) 1,000 mcg/mL injection solution RxNorm: 454663 1Milliliter 09/29/2016 No longer Active cyanocobalamin (vit B-12) 1,000 mcg/mL injection solution RxNorm: 223948 Milliliter 08/29/2016 No longer Active cyanocobalamin (vit B-12) 1,000 mcg/mL injection solution RxNorm: 445951 Milliliter 08/04/2016 No longer Active cyanocobalamin (vit B-12) 1,000 mcg/mL injection solution RxNorm: 288024 Milliliter 07/21/2016 No longer Active cyanocobalamin (vit B-12) 1,000 mcg/mL injection solution RxNorm: 877903 1Milliliter 07/05/2016 No longer Active cyanocobalamin (vit B-12) 1,000 mcg/mL injection solution RxNorm: 511604 1Milliliter 06/22/2016 No longer Active cyanocobalamin (vit B-12) 1,000 mcg/mL injection solution RxNorm: 186901 Milliliter 06/09/2016 No longer Active cyanocobalamin (vit B-12) 1,000 mcg/mL injection solution RxNorm: 672458 1Milliliter 05/25/2016 No longer Active cyanocobalamin (vit B-12) 1,000 mcg/mL injection solution RxNorm: 307169 Milliliter 05/10/2016 No longer Active cyanocobalamin (vit B-12) 1,000 mcg/mL injection solution RxNorm: 196368 Milliliter 04/26/2016 No longer Active cyanocobalamin (vit B-12) 1,000 mcg/mL injection solution RxNorm: 315150 Milliliter 04/11/2016 No longer Active cyanocobalamin (vit B-12) 1,000 mcg/mL injection solution RxNorm: 827778 Milliliter 03/31/2016 No longer Active cyanocobalamin (vit B-12) 1,000 mcg/mL injection solution RxNorm: 368573 1Milliliter 03/15/2016 No longer Active cyanocobalamin (vit B-12) 1,000 mcg/mL injection solution RxNorm: 376915 Milliliter 02/25/2016 No longer Active cyanocobalamin (vit B-12) 1,000 mcg/mL injection solution RxNorm: 581792 1Milliliter 02/02/2016 No longer Active cyanocobalamin (vit B-12) 1,000 mcg/mL injection solution RxNorm: 318128 Milliliter 01/18/2016 No longer Active cyanocobalamin (vit B-12) 1,000 mcg/mL injection solution RxNorm: 007314 Milliliter 12/29/2015 No longer Active cyanocobalamin (vit B-12) 1,000 mcg/mL injection solution RxNorm: 195228 Milliliter 12/08/2015 No longer Active cyanocobalamin (vit B-12) 1,000 mcg/mL injection solution RxNorm: 357879 Milliliter 11/23/2015 No longer Active cyanocobalamin (vit B-12) 1,000 mcg/mL injection solution RxNorm: 581469 Milliliter 11/11/2015 No longer Active cyanocobalamin (vit B-12) 1,000 mcg/mL injection solution RxNorm: 504024 1Milliliter 10/29/2015 No longer Active cyanocobalamin (vit B-12) 1,000 mcg/mL injection solution RxNorm: 186986 1Milliliter 10/12/2015 No longer Active cyanocobalamin (vit B-12) 1,000 mcg/mL injection solution RxNorm: 662921 1Milliliter 09/29/2015 No longer Active cyanocobalamin (vit B-12) 1,000 mcg/mL injection solution RxNorm: 501629 1Milliliter 09/17/2015 No longer Active cyanocobalamin (vit B-12) 1,000 mcg/mL injection solution RxNorm: 857575 1Milliliter 09/03/2015 No longer Active cyanocobalamin (vit B-12) 1,000 mcg/mL injection solution RxNorm: 898627 Milliliter 08/17/2015 No longer Active cyanocobalamin (vit B-12) 1,000 mcg/mL injection solution RxNorm: 190482 Milliliter 08/06/2015 No longer Active cyanocobalamin (vit B-12) 1,000 mcg/mL injection solution RxNorm: 999489 Milliliter 07/22/2015 No longer Active cyanocobalamin (vit B-12) 1,000 mcg/mL injection solution RxNorm: 584209 Milliliter 07/08/2015 No longer Active cyanocobalamin (vit B-12) 1,000 mcg/mL injection solution RxNorm: 980968 Milliliter 06/23/2015 No longer Active cyanocobalamin (vit B-12) 1,000 mcg/mL injection solution RxNorm: 367656 1Milliliter 06/08/2015 No longer Active cyanocobalamin (vit B-12) 1,000 mcg/mL injection solution RxNorm: 868442 Milliliter 05/27/2015 No longer Active cyanocobalamin (vit B-12) 1,000 mcg/mL injection solution RxNorm: 554727 1Milliliter 05/12/2015 No longer Active cyanocobalamin (vit B-12) 1,000 mcg/mL injection kit RxNorm: 662998 kit 04/30/2015 No longer Active cyanocobalamin (vit B-12) 1,000 mcg/mL injection solution RxNorm: 043172 Milliliter 04/16/2015 No longer Active cyanocobalamin (vit B-12) 1,000 mcg/mL injection solution RxNorm: 254981 Milliliter 04/02/2015 No longer Active cyanocobalamin (vit B-12) 1,000 mcg/mL injection solution RxNorm: 783484 Milliliter 03/18/2015 No longer Active cyanocobalamin (vit B-12) 1,000 mcg/mL injection solution RxNorm: 282975 Milliliter 03/03/2015 No longer Active cyanocobalamin (vit B-12) 1,000 mcg/mL injection solution RxNorm: 569131 Milliliter 02/18/2015 No longer Active cyanocobalamin (vit B-12) 1,000 mcg/mL injection solution RxNorm: 732396 Milliliter 02/04/2015 No longer Active cyanocobalamin (vit B-12) 1,000 mcg/mL injection solution RxNorm: 219761 Milliliter 01/22/2015 No longer Active cyanocobalamin (vit B-12) 1,000 mcg/mL injection solution RxNorm: 143661 Milliliter 01/08/2015 No longer Active cyanocobalamin (vit B-12) 1,000 mcg/mL injection solution RxNorm: 561251 Milliliter 12/25/2014 No longer Active cyanocobalamin (vit B-12) 1,000 mcg/mL injection solution RxNorm: 386076 Milliliter 12/10/2014 No longer Active cyanocobalamin (vit B-12) 1,000 mcg/mL injection solution RxNorm: 655974 Milliliter 11/26/2014 No longer Active cyanocobalamin (vit B-12) 1,000 mcg/mL injection kit RxNorm: 548193 Milliliter 11/12/2014 No longer Active cyanocobalamin (vit B-12) 1,000 mcg/mL injection solution RxNorm: 317077 Milliliter 10/28/2014 No longer Active Immunizations Vaccine Codes Date Status Influenza CVX: 141 03/16/2018 completed Influenza CVX: 141 03/22/2017 completed Pneumococcal (Adult) CVX: 33 05/25/2016 completed Influenza CVX: 141 03/15/2016 completed Assessments Condition Codes Effective Dates Atrophy of thyroid (acquired) ICD-10: E03.4 ICD-9: 244.8 10/29/2018 Essential (primary) hypertension ICD-10: I10 ICD-9: 401.9 10/29/2018 Chronic atrial fibrillation ICD-10: I48.2 ICD-9: 427.31 10/29/2018 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.9 ICD-9: 553.3 10/29/2018 Cough ICD-10: R05 ICD-9: 786.2 10/29/2018 Vitamin B12 deficiency anemia, unspecified ICD-10: D51.9 ICD-9: 281.1 10/23/2018 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 [...] Code Item Item Code Result Date Microalbumin Qla054 MicroAlb <0.7 mg/dL 09/11/2018 Tsh Ord6 TSH (3rd IS) 6.48 uIU/mL 09/10/2018 Free T4 Qkr490 FREE T4 0.89 ng/dL 09/10/2018 Lipid Ord30 CHOL 177 mg/dL 09/10/2018 Lipid Ord30 HDL 64.0 mg/dl 09/10/2018 Lipid Ord30 TRIG 126 mg/dL 09/10/2018 Lipid Ord30 LDL 88 mg/dL 09/10/2018 Lipid Ord30 C/HDL 2.8 Ratio 09/10/2018 Comp Metabolic Tpr801 NA 139 mEq/L 09/10/2018 Comp Metabolic Dtg228 K 4.8 mEq/L 09/10/2018 Comp Metabolic Nnb886 CL 103 mEq/L 09/10/2018 Comp Metabolic Rei696 CO2 25.0 mEq/L 09/10/2018 Comp Metabolic Zwn130 ANION GAP 16 09/10/2018 Comp Metabolic Tyx119 GLUCOSE 104 mg/dL 09/10/2018 Comp Metabolic Aun495 Creat 1.0 mg/dL 09/10/2018 Comp Metabolic Chr724 eGFR 54 ml/min/1.73m2 09/10/2018 Comp Metabolic Ago842 BUN 25 mg/dL 09/10/2018 Comp Metabolic Kfy780 B/C Ratio 24.3 Ratio 09/10/2018 Comp Metabolic Kzh126 CALCIUM 9.3 mg/dL 09/10/2018 Comp Metabolic Tzj435 ALK PHOS 71 U/L 09/10/2018 Comp Metabolic Cqn917 AST(SGOT) 25 U/L 09/10/2018 Comp Metabolic Rav512 ALT(SGPT) 28 U/L 09/10/2018 Comp Metabolic Ypi165 BILI T 0.7 mg/dL 09/10/2018 Comp Metabolic Bsq730 ALBUMIN 4.2 g/dL 09/10/2018 Comp Metabolic Low629 TPRO 6.5 g/dL 09/10/2018 Comp Metabolic Fvd742 GLOB 2.3 g/dL 09/10/2018 Comp Metabolic Wky772 A/G Ratio 1.8 Ratio 09/10/2018 Comp Metabolic Yei956 Osmo 282 mOsmo 09/10/2018 Cbc With Differential [...] 27.7 pg 09/10/2018 Cbc With Differential Ord2 [place]% 8.8 % 09/10/2018 Cbc With Differential Ord2 [...] 2.24 K/ul 09/10/2018 Cbc With Differential Ord2 [place] ABS# 0.6 K/ul 09/10/2018 Cbc With Differential Ord2 Eos ABS# 0.2 K/ul 09/10/2018 Cbc With Differential Ord2 Baso ABS# 0.1 K/ul 09/10/2018 %Hba1C Zhu026 % HbA1c 25769- 6 6.0 % 09/10/2018 %Hba1C Dae082 Gluc Ave 126 mg/dL 09/10/2018 Test(s) Not Perfromed [id number] Test(s) Not Performed Test(s) Not Performed. See Below: 09/10/2018 Test(s) Not Perfromed [id number] TEST NAME Microalbumin 09/10/2018 Test(s) Not Perfromed [id number] Rejection Reason Patient Unable to Void 09/10/2018 Test(s) Not Perfromed [id number] COMMENT Patient to deliver sample to the lab at a later date 09/10/2018 Test(s) Not Perfromed [id number] Post Adoption Coordinator Favio Mulligan 09/10/2018 Lipid Ord30 CHOL 174 mg/dL 05/29/2018 Lipid Ord30 HDL 49.0 mg/dl 05/29/2018 Lipid Ord30 TRIG 200 mg/dL 05/29/2018 Lipid Ord30 LDL 85 mg/dL 05/29/2018 Lipid Ord30 C/HDL 3.6 Ratio 05/29/2018 Tsh Ord6 TSH (3rd IS) 3.20 uIU/mL 02/26/2018 Free T4 Cwk872 FREE T4 0.99 ng/dL 02/26/2018 Cbc With [...] 28.5 pg 02/26/2018 Cbc With Differential Ord2 [place]% 10.3 % 02/26/2018 Cbc With Differential Ord2 [...] 1.80 K/ul 02/26/2018 Cbc With Differential Ord2 [place] ABS# 0.7 K/ul 02/26/2018 Cbc With Differential Ord2 Eos ABS# 0.2 K/ul 02/26/2018 Cbc With Differential Ord2 Baso ABS# 0.0 K/ul 02/26/2018 B12 Afn615 B12 889.00 pg/ml 02/26/2018 Digoxin Ord9 DIGOXIN 0.7 NG/ML 11/23/2017 Comp Metabolic Nky656 NA 142 mEq/L 11/23/2017 Comp Metabolic Rku632 K 4.9 mEq/L 11/23/2017 Comp Metabolic Tfl141 CL 112 mEq/L 11/23/2017 Comp Metabolic Zkd054 CO2 18.0 mEq/L 11/23/2017 Comp Metabolic Agy758 ANION GAP 17 11/23/2017 Comp Metabolic Jqu079 GLUCOSE 123 mg/dL 11/23/2017 Comp Metabolic Toy698 Creat 1.0 mg/dL 11/23/2017 Comp Metabolic Kyy335 eGFR 59 ml/min/1.73m2 11/23/2017 Comp Metabolic Ldz257 BUN 24 mg/dL 11/23/2017 Comp Metabolic Hwx168 B/C Ratio 25.0 Ratio 11/23/2017 Comp Metabolic Qti206 CALCIUM 9.4 mg/dL 11/23/2017 Comp Metabolic Uut510 ALK PHOS 56 U/L 11/23/2017 Comp Metabolic Juf318 AST(SGOT) 17 U/L 11/23/2017 Comp Metabolic Djm140 ALT(SGPT) 16 U/L 11/23/2017 Comp Metabolic Nhx235 BILI T 0.7 mg/dL 11/23/2017 Comp Metabolic Yoy417 ALBUMIN 3.8 g/dL 11/23/2017 Comp Metabolic Igy288 TPRO 6.2 g/dL 11/23/2017 Comp Metabolic Fhi264 GLOB 2.4 g/dL 11/23/2017 Comp Metabolic Qmi865 A/G Ratio 1.6 Ratio 11/23/2017 Comp Metabolic Ugy105 Osmo 289 mOsmo 11/23/2017 Free T4 Rkg164 FREE T4 1.04 ng/dL 11/23/2017 %Hba1C Ttx890 % HbA1c 13746- 6 6.4 % 11/23/2017 %Hba1C Vcn404 Gluc Ave 137 mg/dL 11/23/2017 Lipid Ord30 CHOL 179 mg/dL 11/23/2017 Lipid Ord30 HDL 51.0 mg/dl 11/23/2017 Lipid Ord30 TRIG 134 mg/dL 11/23/2017 Lipid Ord30 LDL 101 mg/dL 11/23/2017 Lipid Ord30 C/HDL 3.5 Ratio 11/23/2017 Tsh Ord6 TSH (3rd IS) 1.00 uIU/mL 11/23/2017 Microalbumin Zeh763 MicroAlb <0.7 mg/dL 11/23/2017 Comp Metabolic Elg298 NA 141 mEq/L 01/23/2017 Comp Metabolic Nla017 K 4.5 mEq/L 01/23/2017 Comp Metabolic Cpy992 CL 107 mEq/L 01/23/2017 Comp Metabolic Boz228 CO2 21.0 mEq/L 01/23/2017 Comp Metabolic Gnd623 ANION GAP 18 01/23/2017 Comp Metabolic Fwq044 GLUCOSE 138 mg/dL 01/23/2017 Comp Metabolic Uvp342 Creat 1.0 mg/dL 01/23/2017 Comp Metabolic Edp104 eGFR 56 ml/min/1.73m2 01/23/2017 Comp Metabolic Pzl761 BUN 26 mg/dL 01/23/2017 Comp Metabolic Pgc254 B/C Ratio 25.7 Ratio 01/23/2017 Comp Metabolic Ubb654 CALCIUM 9.0 mg/dL 01/23/2017 Comp Metabolic Mgd262 ALK PHOS 37 U/L 01/23/2017 Comp Metabolic Zuf148 AST(SGOT) 20 U/L 01/23/2017 Comp Metabolic Jhp370 ALT(SGPT) 25 U/L 01/23/2017 Comp Metabolic Cbo322 BILI T 0.9 mg/dL 01/23/2017 Comp Metabolic Ims388 ALBUMIN 3.8 g/dL 01/23/2017 Comp Metabolic Kgy667 TPRO 6.5 g/dL 01/23/2017 Comp Metabolic Afp914 GLOB 2.7 g/dL 01/23/2017 Comp Metabolic Olb276 A/G Ratio 1.4 Ratio 01/23/2017 Comp Metabolic Ffg052 Osmo 288 mOsmo 01/23/2017 Free T4 Tfi737 FREE T4 1.05 ng/dL 01/23/2017 %Hba1C Plc659 % HbA1c 66402- 6 6.1 % 01/23/2017 %Hba1C Ohk453 Gluc Ave 128 mg/dL 01/23/2017 Tsh Ord6 hTSH II 1.68 uIU/mL 01/23/2017 Culture Urine [id number] URINE CULTURE SEE NOTES 11/10/2016 Culture Urine [id number] Continued Results 11/10/2016 Urine Culture Ucult Complete [...] Ord15 CALCIUM 9.3 mg/dL 09/29/2016 Free T4 Xae777 FREE T4 0.99 ng/dL 09/07/2016 Cbc With [...] 30.0 pg 09/07/2016 Cbc With Differential Ord2 [place]% 9.8 % 09/07/2016 Cbc With Differential Ord2 [...] 1.75 K/ul 09/07/2016 Cbc With Differential Ord2 [place] ABS# 0.6 K/ul 09/07/2016 Cbc With Differential Ord2 Eos ABS# 0.1 K/ul 09/07/2016 Cbc With Differential Ord2 Baso ABS# 0.0 K/ul 09/07/2016 Tsh Ord6 hTSH II 1.41 uIU/mL 09/07/2016 Culture Urine [id number] URINE CULTURE SEE NOTES 06/27/2016 Lipid Ord30 CHOL 196 mg/dL 06/22/2016 Lipid Ord30 HDL 63.0 mg/dl 06/22/2016 Lipid Ord30 TRIG 154 mg/dL 06/22/2016 Lipid Ord30 LDL 102 mg/dL 06/22/2016 Lipid Ord30 C/HDL 3.1 Ratio 06/22/2016 Hepatic Hzj810 ALBUMIN 4.2 g/dL 06/22/2016 Hepatic Edn338 TPRO 7.0 g/dL 06/22/2016 Hepatic Qsi514 GLOB 2.8 g/dL 06/22/2016 Hepatic Nio670 A/G Ratio 1.5 Ratio 06/22/2016 Hepatic Vej134 ALK PHOS 54 U/L 06/22/2016 Hepatic Yaf927 ALT(SGPT) 30 U/L 06/22/2016 Hepatic Cmc015 AST(SGOT) 24 U/L 06/22/2016 Hepatic Atf749 BILI T 1.1 mg/dL 06/22/2016 Hepatic Cqi622 BILI D 0.2 mg/dL 06/22/2016 Hepatic Kvz097 BILI I 0.9 mg/dL 06/22/2016 Comp Metabolic Arq028 NA 139 mEq/L 06/14/2016 Comp Metabolic Zcz524 K 4.6 mEq/L 06/14/2016 Comp Metabolic Ngh133 CL 108 mEq/L 06/14/2016 Comp Metabolic Jvw069 CO2 22.0 mEq/L 06/14/2016 Comp Metabolic Mpy754 ANION GAP 14 06/14/2016 Comp Metabolic Evd434 GLUCOSE 114 mg/dL 06/14/2016 Comp Metabolic Ajp043 Creat 1.2 mg/dL 06/14/2016 Comp Metabolic Uuz992 eGFR 48 ml/min/1.73m2 06/14/2016 Comp Metabolic Lrl369 BUN 24 mg/dL 06/14/2016 Comp Metabolic Hcu062 B/C Ratio 20.9 Ratio 06/14/2016 Comp Metabolic Ocg922 CALCIUM 9.9 mg/dL 06/14/2016 Comp Metabolic Vxc003 ALK PHOS 47 U/L 06/14/2016 Comp Metabolic Opb418 AST(SGOT) 28 U/L 06/14/2016 Comp Metabolic Yvi457 ALT(SGPT) 32 U/L 06/14/2016 Comp Metabolic Tng319 BILI T 0.9 mg/dL 06/14/2016 Comp Metabolic Yno385 ALBUMIN 4.1 g/dL 06/14/2016 Comp Metabolic Rok441 TPRO 6.9 g/dL 06/14/2016 Comp Metabolic Yfo180 GLOB 2.8 g/dL 06/14/2016 Comp Metabolic Kyw813 A/G Ratio 1.5 Ratio 06/14/2016 Comp Metabolic Fyy680 Osmo 282 mOsmo 06/14/2016 Tsh Ord6 hTSH II 1.26 uIU/mL 06/14/2016 Free T4 Moo760 FREE T4 1.09 ng/dL 06/14/2016 Tsh Ord6 hTSH II 0.28 uIU/mL 02/02/2016 Digoxin Ord9 DIGOXIN 0.7 NG/ML 02/02/2016 Free T4 Iuy872 FREE T4 1.23 ng/dL 02/02/2016 Hepatic Lxf289 ALBUMIN 4.0 g/dL 02/02/2016 Hepatic Emu950 TPRO 7.0 g/dL 02/02/2016 Hepatic Jeq283 GLOB 3.0 g/dL 02/02/2016 Hepatic Zds517 A/G Ratio 1.3 Ratio 02/02/2016 Hepatic Ppm840 ALK PHOS 57 U/L 02/02/2016 Hepatic Cyu264 ALT(SGPT) 62 U/L 02/02/2016 Hepatic Dvu020 AST(SGOT) 54 U/L 02/02/2016 Hepatic Eqk670 BILI T 0.8 mg/dL 02/02/2016 Hepatic Rcp559 BILI D 0.2 mg/dL 02/02/2016 Hepatic Eru640 BILI I 0.6 mg/dL 02/02/2016 Urine Culture Ucult Preliminary No Growth Day 1 11/25/2015 Urine Culture Ucult Complete No Growth Day 2 11/25/2015 Hepatic Max056 ALBUMIN 3.9 g/dL 11/11/2015 Hepatic Hxp128 TPRO 7.0 g/dL 11/11/2015 Hepatic Hvf973 GLOB 3.1 g/dL 11/11/2015 Hepatic Nnl382 A/G Ratio 1.3 Ratio 11/11/2015 Hepatic Ysm012 ALK PHOS 63 U/L 11/11/2015 Hepatic Bsf322 ALT(SGPT) 107 U/L 11/11/2015 Hepatic Ggs020 AST(SGOT) 101 U/L 11/11/2015 Hepatic Uuh007 BILI T 0.6 mg/dL 11/11/2015 Hepatic Hmz959 BILI D 0.1 mg/dL 11/11/2015 Hepatic Nsp661 BILI I 0.5 mg/dL 11/11/2015 Comp Metabolic Lvq519 NA 138 mEq/L 10/29/2015 Comp Metabolic Ila154 K 5.0 mEq/L 10/29/2015 Comp Metabolic Wqi950 CL 105 mEq/L 10/29/2015 Comp Metabolic Xiv891 CO2 23.0 mEq/L 10/29/2015 Comp Metabolic Icj076 ANION GAP 15 10/29/2015 Comp Metabolic Yqx662 GLUCOSE 105 mg/dL 10/29/2015 Comp Metabolic Pgx793 Creat 1.0 mg/dL 10/29/2015 Comp Metabolic Msy038 eGFR 55 ml/min/1.73m2 10/29/2015 Comp Metabolic Sfg731 BUN 20 mg/dL 10/29/2015 Comp Metabolic Xev076 B/C Ratio 19.4 Ratio 10/29/2015 Comp Metabolic Wev655 CALCIUM 8.8 mg/dL 10/29/2015 Comp Metabolic Orx973 ALK PHOS 56 U/L 10/29/2015 Comp Metabolic Czz513 AST(SGOT) 66 U/L 10/29/2015 Comp Metabolic Dgu615 ALT(SGPT) 78 U/L 10/29/2015 Comp Metabolic Htw327 BILI T 0.7 mg/dL 10/29/2015 Comp Metabolic Wbq516 ALBUMIN 3.6 g/dL 10/29/2015 Comp Metabolic Gpp394 TPRO 6.6 g/dL 10/29/2015 Comp Metabolic Ivm759 GLOB 3.0 g/dL 10/29/2015 Comp Metabolic Clu999 A/G Ratio 1.2 Ratio 10/29/2015 Comp Metabolic Xpy965 Osmo 279 mOsmo 10/29/2015 Comp Metabolic Ibs048 NA 136 mEq/L 09/03/2015 Comp Metabolic Iyy329 K 4.4 mEq/L 09/03/2015 Comp Metabolic Vyh201 CL 103 mEq/L 09/03/2015 Comp Metabolic Aar771 CO2 24.0 mEq/L 09/03/2015 Comp Metabolic Bpn600 ANION GAP 13 09/03/2015 Comp Metabolic Bca082 GLUCOSE 87 mg/dL 09/03/2015 Comp Metabolic Ozx465 Creat 1.1 mg/dL 09/03/2015 Comp Metabolic Jqa956 eGFR 53 ml/min/1.73m2 09/03/2015 Comp Metabolic Kes665 BUN 17 mg/dL 09/03/2015 Comp Metabolic Nsn021 B/C Ratio 16.2 Ratio 09/03/2015 Comp Metabolic Nlr628 CALCIUM 9.0 mg/dL 09/03/2015 Comp Metabolic Cxo341 ALK PHOS 55 U/L 09/03/2015 Comp Metabolic Ory730 AST(SGOT) 83 U/L 09/03/2015 Comp Metabolic Hah929 ALT(SGPT) 126 U/L 09/03/2015 Comp Metabolic Szc903 BILI T 0.9 mg/dL 09/03/2015 Comp Metabolic Wjt198 ALBUMIN 3.9 g/dL 09/03/2015 Comp Metabolic Jzy782 TPRO 6.8 g/dL 09/03/2015 Comp Metabolic Ehv143 GLOB 2.9 g/dL 09/03/2015 Comp Metabolic Iir879 A/G Ratio 1.4 Ratio 09/03/2015 Comp Metabolic Vzb063 Osmo 273 mOsmo 09/03/2015 Total T3 Ord42 TT3 0.6 ng/ml 07/09/2015 Tsh Ord6 hTSH II 1.62 uIU/mL 07/09/2015 Total T3 Ord42 TT3 0.5 ng/ml 04/02/2015 Free T4 Xyf488 FREE T4 1.23 ng/dL 04/02/2015 Tsh Ord6 [...] normal 08/15/2018 None Full Exam - General 1994 Ears/Nose/Throat otoscopic exam Overall: external auditory canals clear 08/15/2018 None Full Exam - General 1994 Ears/Nose/Throat otoscopic exam Tympanic membrane: air-fluid level 08/15/2018 None Full Exam - General 1994 Ears/Nose/Throat lips/teeth/gingiva Overall: benign lips 08/15/2018 None [...] Procedure Codes Date THER/PROPH/DIAG INJ SC/IM CPT-4: 64125 10/23/2018 THER/PROPH/DIAG INJ SC/IM CPT-4: 57172 10/10/2018 THER/PROPH/DIAG INJ SC/IM CPT-4: 54476 09/27/2018 THER/PROPH/DIAG INJ SC/IM CPT-4: 38604 09/11/2018 THER/PROPH/DIAG INJ SC/IM CPT-4: 45931 08/29/2018 THER/PROPH/DIAG INJ SC/IM CPT-4: 77125 08/15/2018 TRIAMCINOLONE ACET INJ NOS CPT-4: J3301 08/15/2018 THER/PROPH/DIAG INJ SC/IM CPT-4: 49519 08/01/2018 VITAMIN B12 INJECTION CPT- 4: J3420 08/01/2018 THER/PROPH/DIAG INJ SC/IM CPT-4: 37953 07/19/2018 THER/PROPH/DIAG INJ SC/IM CPT-4: 37999 07/04/2018 THER/PROPH/DIAG INJ SC/IM CPT-4: 76556 06/20/2018 THER/PROPH/DIAG INJ SC/IM CPT-4: 28731 06/06/2018 VITAMIN B12 INJECTION CPT- 4: J3420 06/06/2018 THER/PROPH/DIAG INJ SC/IM CPT-4: 82506 05/24/2018 THER/PROPH/DIAG INJ SC/IM CPT-4: 15832 05/09/2018 THER/PROPH/DIAG INJ SC/IM CPT-4: 59872 04/26/2018 VITAMIN B12 INJECTION CPT- 4: J3420 04/26/2018 THER/PROPH/DIAG INJ SC/IM CPT-4: 59398 04/12/2018 THER/PROPH/DIAG INJ SC/IM CPT-4: 80507 03/30/2018 THER/PROPH/DIAG INJ SC/IM CPT-4: 77890 03/16/2018 VITAMIN B12 INJECTION CPT- 4: J3420 03/16/2018 ADMIN INFLUENZA VIRUS VAC CPT-4: G0008 03/16/2018 FLU VACC PRSV FREE INC ANTIG Formatting Model/CDA Sections, Assigned to/Nga Ojeda CPT-4: 58183Nmammhv 03/16/2018 THER/PROPH/DIAG INJ SC/IM CPT-4: 42290 03/02/2018 THER/PROPH/DIAG INJ SC/IM CPT-4: 73074 02/08/2018 THER/PROPH/DIAG INJ SC/IM CPT-4: 94398 01/24/2018 THER/PROPH/DIAG INJ SC/IM CPT-4: 74833 01/10/2018 THER/PROPH/DIAG INJ SC/IM CPT-4: 13342 12/27/2017 VITAMIN B12 INJECTION CPT- 4: J3420 12/27/2017 THER/PROPH/DIAG INJ SC/IM CPT-4: 08958 12/12/2017 THER/PROPH/DIAG INJ SC/IM CPT-4: 94329 12/01/2017 VITAMIN B12 INJECTION CPT- 4: J3420 12/01/2017 THER/PROPH/DIAG INJ SC/IM CPT-4: 99442 11/17/2017 THER/PROPH/DIAG INJ SC/IM CPT-4: 56980 11/02/2017 THER/PROPH/DIAG INJ SC/IM CPT-4: 85794 10/20/2017 THER/PROPH/DIAG INJ SC/IM CPT-4: 38757 10/06/2017 THER/PROPH/DIAG INJ SC/IM CPT-4: 33109 09/21/2017 TRIAMCINOLONE ACET INJ NOS CPT-4: J3301 09/15/2017 THER/PROPH/DIAG INJ SC/IM CPT-4: 26509 09/07/2017 THER/PROPH/DIAG INJ SC/IM CPT-4: 55717 08/24/2017 THER/PROPH/DIAG INJ SC/IM CPT-4: 73501 07/06/2017 THER/PROPH/DIAG INJ SC/IM CPT-4: 97554 06/20/2017 TRIAMCINOLONE ACET INJ NOS CPT-4: J3301 06/20/2017 PPPS, SUBSEQ VISIT CPT- 4: G0439 06/05/2017 THER/PROPH/DIAG INJ SC/IM CPT-4: 98080 06/05/2017 THER/PROPH/DIAG INJ SC/IM CPT-4: 30733 05/25/2017 VITAMIN B12 INJECTION CPT- 4: J3420 05/25/2017 THER/PROPH/DIAG INJ SC/IM CPT-4: 44600 05/16/2017 THER/PROPH/DIAG INJ SC/IM CPT-4: 92952 05/01/2017 THER/PROPH/DIAG INJ SC/IM CPT-4: 10348 04/18/2017 THER/PROPH/DIAG INJ SC/IM CPT-4: 98512 04/06/2017 ADMIN INFLUENZA VIRUS VAC CPT-4: G0008 03/22/2017 FLU VACC PRSV FREE INC ANTIG CPT-4: 97018 03/22/2017 THER/PROPH/DIAG INJ SC/IM CPT-4: 91515 03/09/2017 THER/PROPH/DIAG INJ SC/IM CPT-4: 46332 02/23/2017 THER/PROPH/DIAG INJ SC/IM CPT-4: 53513 02/09/2017 THER/PROPH/DIAG INJ SC/IM CPT-4: 83360 01/23/2017 THER/PROPH/DIAG INJ SC/IM CPT-4: 51941 01/10/2017 THER/PROPH/DIAG INJ SC/IM CPT-4: 31353 12/28/2016 THER/PROPH/DIAG INJ SC/IM CPT-4: 05263 12/14/2016 THER/PROPH/DIAG INJ SC/IM CPT-4: 29223 11/24/2016 URINALYSIS NONAUTO W/O SCOPE CPT-4: 80885 11/07/2016 THER/PROPH/DIAG INJ SC/IM CPT-4: 81653 11/07/2016 THER/PROPH/DIAG INJ SC/IM CPT-4: 12977 10/24/2016 THER/PROPH/DIAG INJ SC/IM CPT-4: 90626 09/29/2016 THER/PROPH/DIAG INJ SC/IM CPT-4: 79137 08/29/2016 THER/PROPH/DIAG INJ SC/IM CPT-4: 32753 08/04/2016 THER/PROPH/DIAG INJ SC/IM CPT-4: 45111 07/21/2016 THER/PROPH/DIAG INJ SC/IM CPT-4: 40484 07/05/2016 THER/PROPH/DIAG INJ SC/IM CPT-4: 10282 06/22/2016 URINALYSIS NONAUTO W/O SCOPE CPT-4: 42034 06/22/2016 THER/PROPH/DIAG INJ SC/IM CPT-4: 10355 06/09/2016 PPPS, SUBSEQ VISIT CPT- 4: G0439 05/30/2016 ADMIN PNEUMOCOCCAL VACCINE SNOMED CT: 75451731 CPT-4: G0009 05/25/2016 Pneumococcal Polysaccharide Vaccine, 23-Valent, Ad CPT-4: 85960 05/25/2016 THER/PROPH/DIAG INJ SC/IM CPT-4: 18729 05/25/2016 THER/PROPH/DIAG INJ SC/IM CPT-4: 89972 05/10/2016 TRIAMCINOLONE ACET INJ NOS CPT-4: J3301 04/26/2016 VITAMIN B12 INJECTION CPT- 4: J3420 04/26/2016 THER/PROPH/DIAG INJ SC/IM CPT-4: 72349 04/11/2016 THER/PROPH/DIAG INJ SC/IM CPT-4: 47672 03/31/2016 ADMIN INFLUENZA VIRUS VAC CPT-4: G0008 03/15/2016 FLU VACC 4 STEPHANIE 3 YRS PLUS IM SNOMED CT: 51275223 CPT-4: 51489 03/15/2016 THER/PROPH/DIAG INJ SC/IM CPT-4: 08094 02/25/2016 THER/PROPH/DIAG INJ SC/IM CPT-4: 58418 02/02/2016 THER/PROPH/DIAG INJ SC/IM CPT-4: 17158 01/18/2016 VITAMIN B12 INJECTION CPT- 4: J3420 12/29/2015 THER/PROPH/DIAG INJ SC/IM CPT-4: 65041 12/29/2015 THER/PROPH/DIAG INJ SC/IM CPT-4: 26920 12/08/2015 THER/PROPH/DIAG INJ SC/IM CPT-4: 43698 11/23/2015 URINALYSIS NONAUTO W/O SCOPE CPT-4: 76703 11/23/2015 THER/PROPH/DIAG INJ SC/IM CPT-4: 07851 11/11/2015 THER/PROPH/DIAG INJ SC/IM CPT-4: 86033 10/29/2015 THER/PROPH/DIAG INJ SC/IM CPT-4: 98756 10/12/2015 VITAMIN B12 INJECTION CPT- 4: J3420 10/12/2015 THER/PROPH/DIAG INJ SC/IM CPT-4: 08689 09/29/2015 THER/PROPH/DIAG INJ SC/IM CPT-4: 60573 09/17/2015 THER/PROPH/DIAG INJ SC/IM CPT-4: 47608 09/03/2015 THER/PROPH/DIAG INJ SC/IM CPT-4: 08858 08/17/2015 THER/PROPH/DIAG INJ SC/IM CPT-4: 72052 08/06/2015 THER/PROPH/DIAG INJ SC/IM CPT-4: 95825 07/22/2015 THER/PROPH/DIAG INJ SC/IM CPT-4: 20881 07/08/2015 THER/PROPH/DIAG INJ SC/IM CPT-4: 29149 06/23/2015 THER/PROPH/DIAG INJ SC/IM CPT-4: 34697 06/08/2015 THER/PROPH/DIAG INJ SC/IM CPT-4: 83035 05/27/2015 DESTRUCT PREMALG LESION CPT-4: 98448 05/19/2015 DESTRUCT PREMALG LES 2-14 CPT-4: 88178 05/19/2015 THER/PROPH/DIAG INJ SC/IM CPT-4: 47570 05/12/2015 VITAMIN B12 INJECTION CPT- 4: J3420 05/12/2015 THER/PROPH/DIAG INJ SC/IM CPT-4: 48422 04/30/2015 VITAMIN B12 INJECTION CPT- 4: J3420 04/30/2015 THER/PROPH/DIAG INJ SC/IM CPT-4: 38831 04/16/2015 THER/PROPH/DIAG INJ SC/IM CPT-4: 72943 04/02/2015 VITAMIN B12 INJECTION CPT- 4: J3420 04/02/2015 THER/PROPH/DIAG INJ SC/IM CPT-4: 48702 03/18/2015 THER/PROPH/DIAG INJ SC/IM CPT-4: 56769 03/03/2015 THER/PROPH/DIAG INJ SC/IM CPT-4: 02530 02/18/2015 THER/PROPH/DIAG INJ SC/IM CPT-4: 75273 02/04/2015 VITAMIN B12 INJECTION CPT- 4: J3420 02/04/2015 THER/PROPH/DIAG INJ SC/IM CPT-4: 48033 01/22/2015 THER/PROPH/DIAG INJ SC/IM CPT-4: 13029 01/08/2015 VITAMIN B12 INJECTION CPT- 4: J3420 01/08/2015 THER/PROPH/DIAG INJ SC/IM CPT-4: 97288 12/25/2014 VITAMIN B12 INJECTION CPT- 4: J3420 12/25/2014 THER/PROPH/DIAG INJ SC/IM CPT-4: 35566 12/10/2014 VITAMIN B12 INJECTION CPT- 4: J3420 12/10/2014 THER/PROPH/DIAG INJ SC/IM CPT-4: 45488 11/26/2014 VITAMIN B12 INJECTION CPT- 4: J3420 11/26/2014 THER/PROPH/DIAG INJ SC/IM CPT-4: 07922 11/12/2014 VITAMIN B12 INJECTION CPT- 4: J3420 11/12/2014 THER/PROPH/DIAG INJ SC/IM CPT-4: 48047 10/28/2014 Vital Signs Date Vital 10/29/2018 Blood Pressure 1: 118/68 Code: 8480-6 BMI: 28.1 Code: 94644-4 Heart Rate 1: 64 bpm Height: 5'6" SpO2: 99% Weight: 174 lbs 09/05/2018 Blood Pressure 1: 122/70 Code: 8480-6 BMI: 27.1 Code: 16017-5 Heart Rate 1: 90 bpm Height: 5'6" SpO2: 97% Weight: 168 lbs 08/15/2018 Blood Pressure 1: 142/76 Code: 8480-6 BMI: 27.4 Code: 96995-3 Heart Rate 1: 74 bpm Height: 5'6" SpO2: 95% Temperature: 36.7 (C) / 98.1 (F) Weight: 170 lbs 05/03/2018 Blood Pressure 1: 140/70 Code: 8480-6 BMI: 26.0 Code: 09404-8 Heart Rate 1: 70 bpm Height: 5'6" SpO2: 94% Weight: 161 lbs 04/26/2018 Height: 5'6" 02/26/2018 Blood Pressure 1: 130/72 Code: 8480-6 BMI: 27.9 Code: 19941-5 Heart Rate 1: 72 bpm Height: 5'6" SpO2: 93% Weight: 173 lbs 12/12/2017 Blood Pressure 1: 126/74 Code: 8480-6 BMI: 27.4 Code: 71252-6 Heart Rate 1: 83 bpm Height: 5'6" SpO2: 98% Weight: 170 lbs 12/04/2017 Blood Pressure 1: 104/68 Code: 8480-6 BMI: 28.2 Code: 95160-8 Heart Rate 1: 85 bpm Height: 5'6" SpO2: 95% Weight: 175 lbs 11/20/2017 Blood Pressure 1: 130/68 Code: 8480-6 BMI: 28.4 Code: 29251-9 Heart Rate 1: 80 bpm Height: 5'6" SpO2: 99% Weight: 176 lbs 11/02/2017 Height: 5'6" 09/15/2017 Blood Pressure 1: 134/74 Code: 8480-6 BMI: 28.4 Code: 92352-3 Heart Rate 1: 88 bpm Height: 5'6" SpO2: 98% Weight: 176 lbs 09/07/2017 Blood Pressure 1: 124/64 Code: 8480-6 Heart Rate 1: 90 bpm Height: SpO2: 97% Weight: 08/30/2017 Blood Pressure 1: 140/76 Code: 8480-6 BMI: 28.4 Code: 91273-6 Heart Rate 1: 90 bpm Height: 5'6" SpO2: 94% Weight: 176 lbs 07/06/2017 Blood Pressure 1: 132/66 Code: 8480-6 BMI: 29.4 Code: 75890-2 Heart Rate 1: 85 bpm Height: 5'6" SpO2: 97% Weight: 182 lbs 06/20/2017 Blood Pressure 1: 134/86 Code: 8480-6 Heart Rate 1: 90 bpm Height: SpO2: 98% Weight: 06/05/2017 BMI: 29.1 Code: 33017-0 Height: 5'6" Weight: 180 lbs 05/25/2017 Blood Pressure 1: 126/76 Code: 8480-6 BMI: 29.1 Code: 65552-9 Heart Rate 1: 77 bpm Height: 5'6" SpO2: 97% Weight: 180 lbs 03/23/2017 Blood Pressure 1: 142/84 Code: 8480-6 BMI: 29.1 Code: 32312-8 Heart Rate 1: 91 bpm Height: 5'6" SpO2: 97% Weight: 180 lbs 01/23/2017 Blood Pressure 1: 150/90 Code: 8480-6 BMI: 29.9 Code: 04017-6 Heart Rate 1: 81 bpm Height: 5'6" SpO2: 97% Weight: 185 lbs 11/02/2016 Blood Pressure 1: 148/78 Code: 8480-6 BMI: 29.7 Code: 74130-6 Heart Rate 1: 87 bpm Height: 5'6" SpO2: 97% Weight: 184 lbs 09/29/2016 Blood Pressure 1: 128/78 Code: 8480-6 BMI: 29.7 Code: 29132-7 Heart Rate 1: 78 bpm Height: 5'6" SpO2: 98% Weight: 184 lbs 07/26/2016 Blood Pressure 1: 138/72 Code: 8480-6 BMI: 30.0 Code: 23507-6 Heart Rate 1: 85 bpm Height: 5'6" SpO2: 97% Weight: 186 lbs 05/30/2016 Blood Pressure 1: 13276 Code: 8480-6 BMI: 30.0 Code: 11148-1 Heart Rate 1: 80 bpm Height: 5'6" SpO2: 98% Waist Measure (cm): 99 cm Weight: 186 lbs 05/25/2016 Blood Pressure 1: 132 Code: 8480-6 BMI: 30.0 Code: 33619-7 Heart Rate 1: 80 bpm Height: 5'6" SpO2: 96% Weight: 186 lbs 02/25/2016 Blood Pressure 1: 110/64 Code: 8480-6 Heart Rate 1: 82 bpm Height: SpO2: 96% Weight: 01/25/2016 Blood Pressure 1: 118/70 Code: 8480-6 BMI: 30.0 Code: 15332-0 Heart Rate 1: 78 bpm Height: 5'6" SpO2: 97% Weight: 186 lbs 11/11/2015 Blood Pressure 1: 128/82 Code: 8480-6 BMI: 29.2 Code: 93514-1 Heart Rate 1: 86 bpm Height: 5'6" SpO2: 96% Temperature: 36.4 (C) / 97.6 (F) Weight: 181 lbs 10/12/2015 Blood Pressure 1: 118/70 Code: 8480-6 BMI: 29.2 Code: 42262-8 Heart Rate 1: 81 bpm Height: 5'6" SpO2: 95% Weight: 181 lbs 09/03/2015 Blood Pressure 1: 138/78 Code: 8480-6 BMI: 29.9 Code: 80419-6 Heart Rate 1: 88 bpm Height: 5'6" SpO2: 97% Weight: 185 lbs 05/19/2015 Blood Pressure 1: 146/78 Code: 8480-6 BMI: 30.0 Code: 56835-2 Heart Rate 1: 66 bpm Height: 5'6" SpO2: 97% Weight: 186 lbs 05/12/2015 Blood Pressure 1: 120/70 Code: 8480-6 BMI: 29.9 Code: 02386-0 Heart Rate 1: 89 bpm Height: 5'6" SpO2: 95% Weight: 185 lbs 01/13/2015 Blood Pressure 1: 140/90 Code: 8480-6 BMI: 30.3 Code: 67049-4 Heart Rate 1: 84 bpm Height: 5'6" SpO2: 95% Weight: 188 lbs 12/16/2014 Blood Pressure 1: 140/82 Code: 8480-6 BMI: 29.5 Code: 99603-1 Heart Rate 1: 86 bpm Height: 5'6" [...] - did not bring in readings 05/25/2017 -HH checks them every other day hypertension Alleviating [...] data Encounters Encounter Performer Location Codes Date ([id number]) [id number] EST. PATIENT, LEVEL V Diagnosis: Essential (primary) hypertension[ICD10: I10] Diagnosis: Chronic atrial fibrillation[ICD10: I48.2] Diagnosis: Atrophy of thyroid (acquired)[ICD10: E03.4] Diagnosis: Cough[ICD10: R05] Diagnosis: 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[ICD10: K44.9] Yarely Vega MD, [facility] CPT-4: 70748 10/29/2018 [id number]) [id number] EST. PATIENT, LEVEL IV Diagnosis: Essential (primary) hypertension[ICD10: I10] Diagnosis: Type 2 diabetes mellitus without complications[ICD10: E11.9] Diagnosis: Atrophy of thyroid (acquired)[ICD10: E03.4] Diagnosis: Other vitamin B12 deficiency anemias[ICD10: D51.8] Yarely Vega MD, [facility] CPT-4: 12638 09/05/2018 [id number] EST. PATIENT, LEVEL IV Diagnosis: Acute bronchitis due to other specified organisms[ICD10: J20.8] Diagnosis: Cough[ICD10: R05] Diagnosis: 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 factor deficiency[ICD10: D51.0] Brianna Vega MD, [facility] CPT-4: 09284 08/15/2018 [id number]) [id number] EST. PATIENT, LEVEL IV Diagnosis: Essential (primary) hypertension[ICD10: I10] Diagnosis: Type 2 diabetes mellitus without complications[ICD10: E11.9] Yarely Vega MD, [facility] CPT-4: 34388 05/03/2018 ([id number]) 04956 EST. PATIENT, LEVEL III Diagnosis: Pain in left shoulder[ICD10: M25.512] Diagnosis: Pain in right shoulder[ICD10: M25.511] Yarely Vega MD, [facility] CPT-4: 66537 02/26/2018 [id number]) [id number] EST. PATIENT, LEVEL III Diagnosis: Nausea[ICD10: R11.0] Diagnosis: Cough[ICD10: R05] Diagnosis: 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 factor deficiency[ICD10: D51.0] Janet Vega MD, [facility] CPT-4: 45895 12/12/2017 ([id number]) 06426 EST. PATIENT, LEVEL IV Diagnosis: Acute bronchitis due to Hemophilus influenzae[ICD10: J20.1] Diagnosis: Cough[ICD10: R05] Yarely Vega MD, [facility] CPT-4: 10955 12/04/2017 ([id number]) 58806 EST. PATIENT, LEVEL IV Diagnosis: Essential (primary) hypertension[ICD10: I10] Diagnosis: Cough[ICD10: R05] Diagnosis: Chronic atrial fibrillation[ICD10: I48.2] Yarely Vega MD, [facility] CPT-4: 75843 11/20/2017 ([id number]) 17148 EST. PATIENT, LEVEL III Diagnosis: Cough[ICD10: R05] Diagnosis: Acute upper respiratory infection, unspecified[ICD10: J06.9] Janet Vega MD, [facility] CPT-4: 46876 09/15/2017 [id number] EST. PATIENT, LEVEL III Diagnosis: Laceration without foreign body of right forearm, initial encounter[ICD10: S51.811A] Diagnosis: Other vitamin B12 deficiency anemias[ICD10: D51.8] Brianna Vega MD, [facility] CPT-4: 42661 09/07/2017 ([id number]) 24671 EST. PATIENT, LEVEL IV Diagnosis: Chronic atrial fibrillation[ICD10: I48.2] Diagnosis: Other allergic rhinitis[ICD10: J30.89] Diagnosis: Encounter for therapeutic drug level monitoring[ICD10: Z51.81] Yarely Vega MD, [facility] CPT-4: 76098 08/30/2017 ([id number]) 86229 EST. PATIENT, LEVEL IV Diagnosis: Atrophy of thyroid (acquired)[ICD10: E03.4] Diagnosis: Cough[ICD10: R05] Diagnosis: Laceration without foreign body of left forearm, initial encounter[ICD10: S51.812A] Diagnosis: Candidiasis of skin and nail[ICD10: B37.2] Diagnosis: Other vitamin B12 deficiency anemias[ICD10: D51.8] Diagnosis: Slow transit constipation[ICD10: K59.01] Yarely Vega MD, [facility] CPT-4: 70448 07/06/2017 37806 EST. PATIENT, LEVEL III Diagnosis: Other vitamin B12 deficiency anemias[ICD10: D51.8] Diagnosis: Acute laryngopharyngitis[ICD10: J06.0] Diagnosis: Other allergic rhinitis[ICD10: J30.89] Brianna Vega MD, [facility] CPT- 4: 69513 06/20/2017 ([id number]) 21965 EST. 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 PATIENT, LEVEL IV Diagnosis: Type 2 diabetes mellitus without complications[ICD10: E11.9] Diagnosis: Atrophy of thyroid (acquired)[ICD10: E03.4] Diagnosis: Chest pain on breathing[ICD10: R07.1] Diagnosis: Chondrocostal junction syndrome [Tietze][ICD10: M94.0] Diagnosis: Other fatigue[ICD10: R53.83] Yarely Vega MD, [facility] CPT-4: 55913 03/23/2017 ([id number]) 80130 EST. PATIENT, LEVEL IV Diagnosis: Type 2 diabetes mellitus without complications[ICD10: E11.9] Diagnosis: Essential (primary) hypertension[ICD10: I10] Diagnosis: Headache[ICD10: R51] Diagnosis: Atrophy of thyroid (acquired)[ICD10: E03.4] Diagnosis: Vitamin B12 deficiency anemia, unspecified[ICD10: D51.9] [facility] CPT-4: 01210 01/23/2017 44631 EST. PATIENT, LEVEL III Diagnosis: Low back pain[ICD10: M54.5] Diagnosis: Pain in thoracic spine[ICD10: M54.6] Brianna Vega MD, [facility] CPT- 4: 31058 11/02/2016 ([id number]) 35758 EST. PATIENT, LEVEL IV Diagnosis: Essential (primary) hypertension[ICD10: I10] Diagnosis: Other vitamin B12 deficiency anemias[ICD10: D51.8] Diagnosis: Generalized abdominal pain[ICD10: R10.84] Yarely Vega MD, [facility] CPT-4: 27869 09/29/2016 ([id number]) 19633 EST. PATIENT, LEVEL IV Diagnosis: Essential (primary) hypertension[ICD10: I10] Yarely Vega MD [facility] CPT-4: 68449 07/26/2016 ([id number]) 95724 EST. PATIENT, LEVEL IV Diagnosis: Benign lipomatous neoplasm of skin and subcutaneous tissue of right leg[ICD10: D17.23] Diagnosis: Pain in right ankle and joints of right foot[ICD10: M25.571] Diagnosis: Encounter for immunization[ICD10: Z23] Diagnosis: Vitamin B12 deficiency anemia, unspecified[ICD10: D51.9] Yarely Vega MD, [facility] CPT-4: 09443 05/25/2016 27809 EST. PATIENT, LEVEL III Diagnosis: Other chest pain[ICD10: R07.89] Diagnosis: Other vitamin B12 deficiency anemias[ICD10: D51.8] Brianna Vega MD, [facility] CPT-4: 98417 02/25/2016 ([id number]) 84345 EST. 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 PATIENT, LEVEL III Diagnosis: Other vitamin B12 deficiency anemias[ICD10: D51.8] Diagnosis: Acute nasopharyngitis [common cold][ICD10: J00] Diagnosis: Other allergic rhinitis[ICD10: J30.89] Brianna Vega MD, [facility] CPT- 4: 81613 11/11/2015 ([id number]) 96460 EST. PATIENT, LEVEL IV Diagnosis: Essential tremor[ICD10: G25.0] Diagnosis: Chronic fatigue, unspecified[ICD10: R53.82] Diagnosis: Other hypersomnia[ICD10: G47.19] Diagnosis: Essential (primary) hypertension[ICD10: I10] Yarely Vega MD, [facility] CPT-4: 46053 10/12/2015 ([id number]) 76683 EST. PATIENT, LEVEL IV Diagnosis: Essential (primary) hypertension[ICD10: I10] Diagnosis: Chronic atrial fibrillation[ICD10: I48.2] Diagnosis: Abnormal levels of other serum enzymes[ICD10: R74.8] Diagnosis: Type 2 diabetes mellitus without complications[ICD10: E11.9] Diagnosis: Vitamin B12 deficiency anemia, unspecified[ICD10: D51.9] Yarely Vega MD, [facility] CPT-4: 28403 09/03/2015 ([id number]) 54645 EST. PATIENT, LEVEL III Diagnosis: Nausea[ICD10: R11.0] Diagnosis: Essential tremor[ICD10: G25.0] Diagnosis: Actinic keratosis[ICD10: L57.0] Yarely Vega MD, [facility] CPT-4: 59498 05/19/2015 ([id number]) 99806 EST. PATIENT, LEVEL IV Diagnosis: Vitamin B12 deficiency anemia, unspecified[ICD10: D51.9] Diagnosis: Chronic atrial fibrillation[ICD10: I48.2] Diagnosis: Headache[ICD10: R51] Diagnosis: Chronic fatigue, unspecified[ICD10: R53.82] Diagnosis: Cervicalgia[ICD10: M54.2] Yarely Vega MD, [facility] CPT-4: 74298 05/12/2015 ([id number]) 69021 EST. PATIENT, LEVEL IV Diagnosis: ESSENTIAL HYPERTENSION[ICD9: 401.9] Diagnosis: Afib[ICD9: 427.31] Diagnosis: Anxiety[ICD9: 300.00] Diagnosis: Insomnia[ICD9: 780.52] Yarely Vega MD, [facility] CPT-4: 00421 01/13/2015 ([id number]) OFFICE VISIT, NEW - LEVEL 4 Diagnosis: Hypothyroidism[ICD9: 244.9] Diagnosis: DIABETES TYPE II[ICD9: 250.00] Diagnosis: ESSENTIAL HYPERTENSION[ICD9: 401.9] Diagnosis: Afib[ICD9: 427.31] Diagnosis: Anxiety[ICD9: 300.00] Diagnosis: B12 deficiency[ICD9: 266.2] [facility] CPT-4: 19588 12/16/2014 Plan of Care Planned Activity Notes Codes Status Date Visit Plan: Large Hiatal Hernia - discussed [...] the office will call her DTR benji ([phone]) - with appt information Hypertension - well [...] - total time was 45 minutes 10/29/2018 Patient Education: Patient Medication Summary Completed 10/29/2018 Patient Education: Hypertension Completed 10/29/2018 Appointment: Injection 10/23/2018 Patient Education: Patient Medication Summary Completed 10/23/2018 Appointment: Yarely Vega WPtel: [address] [place], [place] [phone] (15 min) Moderate 10/22/2018 Appointment: Injection 10/10/2018 Patient Education: Patient Medication Summary Completed 10/10/2018 Appointment: Injection 09/27/2018 Patient Education: Patient Medication Summary Completed 09/27/2018 Appointment: [facility] [phone] [facility] (15 min) Moderate 09/11/2018 Appointment: Injection 09/11/2018 [...] of control. 09/05/2018 Appointment: [facility] [address] [facility] (15 min) Moderate 09/05/2018 Patient Education: [...] Summary Completed 06/20/2018 Appointment: [facility] [phone] [facility] [place] (30 min) Complex 06/07/2018 Appointment: Injection 06/06/2018 Patient Education: Patient Medication Summary Completed 06/06/2018 Appointment: [facility] [phone] [facility] [place] (15 min) Moderate 05/31/2018 Appointment: [...] flonase 05/03/2018 Appointment: [facility] [phone] [facility] [place] (15 min) Moderate 05/03/2018 Patient [...] surgical intervention. 02/26/2018 Appointment: Yarely Vega WPtel: [address] [facility] (15 min) Moderate 02/26/2018 Patient Education: Patient Medication Summary Completed 02/26/2018 Care Plan: Referral Order SNOMED-CT : [id number] Pending 02/26/2018 Appointment: Injection 02/08/2018 Patient Education: Patient Medication Summary Completed 02/08/2018 Appointment: Injection 01/24/2018 Patient Education: Patient Medication Summary Completed 01/24/2018 Appointment: Injection 01/10/2018 Patient Education: Patient Medication Summary Completed 01/10/2018 Appointment: Injection 12/27/2017 Patient Education: Patient Medication Summary Completed 12/27/2017 Appointment: Yarely Vega WPtel: [facility] (15 min) Moderate 12/26/2017 Visit Plan: Dzpwjd-bobyaoudq-uaofrvkg protonix-follow up with Dr Escobedo as scheduled Cough-recent bronchitis-symptoms improved-call if symptoms do not completely resolve 12/12/2017 Appointment: Janet Fam WPtel: [facility]8 [phone] [place] (15 min) Moderate 12/12/2017 Patient Education: Patient Medication Summary Completed 12/12/2017 Visit Plan: Bronchitis - acute case of bronchitis identified. Pt has been given antibiotics, breathing treatments as appropriate, and pt has been instructed to call if symptoms are not improved, or if symptoms acutely worsen. Cough - rx for antibiotics as well as cough medication. 12/04/2017 Appointment: Yarely Vega WPtel: [phone] [facility] [place] (15 min) Moderate 12/04/2017 Patient Education: Patient [...] Fatigue/malaise -Pt was advsied to ask the Product Designer the following: ask the heart doctor if [...] becoming uncontrolled. 11/20/2017 Appointment: Yarely Vega WPtel: [address] [place] [address] (15 min) Moderate 11/20/2017 Patient Education: Patient [...] any worse. 09/15/2017 Appointment: Janet Fam WPtel: [address] [place], [place] [phone] [place] (15 min) Moderate 09/15/2017 Patient Education: Patient Medication Summary Completed 09/15/2017 Appointment: Yarely Vega WPtel: [address] [place], [place] [id number] [place] (15 min) Moderate 09/11/2017 Visit Plan: Skin tear and Cellulitis - The patient was instructed in appropriate wound care. The patient was instructed to use the antibiotic ointment as per RX. The patient is to call for any change in symptoms, increase in size of the lesion, increase in pain, worsening redness, warmth, discharge. 09/07/2017 Appointment: [facility] [phone] [facility] (10 min) Simple 09/07/2017 Patient Education: Patient Medication Summary Completed 09/07/2017 Visit Plan: Lipoma - left ankle - talk to dr. barnes about possible surgery/laser for treatment of lipoma. Fatigue/malaise -Pt was advsied to ask the Product Designer the following: ask the heart doctor if there is an alternative to the amiodarone - you may be having side effects from the medication causing you to have pruritus (itching) and feeling like you have body aches, muscle aches, joint pain, fatigue, weight loss (decreased appetite), and pneumonia like symptoms. Congestion - claritin 10mg daily. 08/30/2017 Appointment: [facility]el[facility] [phone] [facility] (15 min) Moderate 08/30/2017 Patient Education: Patient Medication Summary Completed 08/30/2017 Appointment: Injection 08/24/2017 Appointment: Yarely [facility]ega [facility]Ptel: [phone] [facility] [place] (15 min) Moderate 08/24/2017 Patient Education: [...] and mucinex 07/06/2017 Appointment: Yarely Vega [facility]Ptel: [phone] [facility] [place] (15 min) Moderate 07/06/2017 Patient Education: [...] spray. 06/20/2017 Appointment: Bri[facility] Otoole [facility]Ptel: [phone] [facility] [place] (15 min) Moderate 06/20/2017 Patient [...] Bucky 06/05/2017 Appointment: Bri[facility] Otoole [facility]Ptel[facility] [phone] [facility] [facility] - Annual Wellness Visit 06/05/2017 Patient [...] q 3 months or q 6 m [facility] based on previous levels of control. 05/25/2017 Appointment: Yarely Vega WPtel: [phone] [facility] (15 min) Moderate 05/25/2017 Patient Education: [...] wall. Fatigue - pt to discuss with Product Designer about the possibility of amiodarone causing her fatigue/malaise. 03/23/2017 Appointment: Yarely Vega WPtel: [address] [facility] [place] (15 min) Moderate 03/23/2017 Patient [...] daily. 01/23/2017 Appointment: [facility]ly [facility]ega [facility]Ptel[facility] [phone] [facility] (15 min) Moderate 01/23/2017 Patient Education: [...] improve. 11/02/2016 Appointment: Bri[facility] Otoole [facility]Ptel[facility] [phone] [facility] (15 min) Moderate 11/02/2016 Patient Education: [...] carafate 09/29/2016 Appointment: Yarely Vega WPtel: [phone] [facility] [place] (15 min) Moderate 09/29/2016 Patient Education: Patient Medication Summary Completed 09/29/2016 Appointment: Yarely Vega WPtel: [phone] [facility] [place] (15 min) Moderate 09/27/2016 Appointment: [facility]ly [facility]ega [facility]Ptel: [address] [facility] [place] (15 min) Moderate 09/20/2016 Appointment: Yarely Vega WPtel: [address] [facility] [place] (15 min) Moderate 09/20/2016 Patient Education: Patient Medication Summary Completed 09/06/2016 Appointment: Yarely Vega WPtel: [address] [facility] [place] (15 min) Moderate 08/30/2016 Appointment: [...] to call for acute concerns. 07/26/2016 Appointment: YorkYarely WPtel[facility] [address] [facility] (15 min) Moderate 07/26/2016 Patient Education: [...] care surrogate. 05/30/2016 Appointment: Bri[facility] Otoole [facility]Ptel: [phone] [facility] [facility] - Annual Wellness Visit 05/30/2016 Patient [...] based on previous levels of control. h michele - take topamax at bedtime 05/25/2016 Appointment: Yarely Vega [facility]Ptel: [phone] [facility] (15 min) Moderate 05/25/2016 Patient Education: Patient Medication Summary Completed 05/25/2016 Patient Education: Obesity Completed 05/25/2016 Care Plan: Referral Order SNOMED-CT : [id number] Pending 05/25/2016 Appointment: Injection 05/10/2016 Patient Education: Patient Medication Summary Completed 05/10/2016 Appointment: Injection 04/26/2016 Patient Education: Patient Medication Summary Completed 04/26/2016 Appointment: Injection 04/11/2016 Patient Education: Patient Medication Summary Completed 04/11/2016 Appointment: Injection 03/31/2016 Patient Education: Patient Medication Summary Completed 03/31/2016 Patient Education: Patient Medication Summary Completed 03/22/2016 Care Plan: [facility]MO[facility]APHY[facility] 94571-2 Pending 03/22/2016 Appointment: Injection 03/15/2016 Patient Education: [...] concerns. 02/25/2016 Appointment: Bri[facility] Otoole [facility]Ptel[facility] [phone] [facility] (15 min) Moderate 02/25/2016 Patient Education: [...] the patients recent sleep study - recommended [place] home patient eval of pt - nocturnal [...] the patients recent sleep study - recommended [place] home patient eval of pt - nocturnal [...] case with Faiza's daughter who had left [facility]. She is interested in looking at assisted living facilities for her mom as Faiza's family is for assisted living placement sooner rather than later. 10/12/2015 Appointment: Yarely Vega [facility]Ptel: [phone] [facility] (15 min) Moderate 10/12/2015 Patient Education: [...] Summary Completed 08/17/2015 Appointment: Yarely Vega [facility]Ptel: [phone] [facility] (15 min) Moderate 08/11/2015 Appointment: Injection [...] 2 05/19/2015 Appointment: Yarely [facility]ega [facility]Ptel: [phone] [facility] (30 min) Complex 05/19/2015 Patient Education: [...] prn alprazolam. 01/13/2015 Appointment: Yarely Vega WPtel: [facility] (15 min) Moderate 01/13/2015 Patient Education: [...] current medications. 12/16/2014 Appointment: Janet [facility]el: [address] [phone] [place] ([place]) New Patient 12/16/2014 Patient [...] [facility] Referral Appointment Requested Instructions Comment . Large Hiatal Hernia - discussed with [...] the office will call her DTR benji ([phone]) - with appt information Hypertension - well [...] throat/neck. - total time was 45 minutes excedrin migraine for as needed use for [...] to post-nasal drainage - restart flonase . Chest Pain - pt states that [...] case with Faiza's daughter who had left [facility]. She is interested in looking at assisted living facilities for her mom as Faiza's family is for assisted living placement sooner rather than later. . Hypertension - well controlled - continue [...] based on previous levels of control. . Atrial Fibrillation - pt on chronic [...] DOP[employer] paperwork for health care surrogate. . Qtwqrg-bohdibkcr-qlxyymml protonix-follow up with Dr Escobedo as scheduled [...] Fatigue/malaise -Pt was advsied to ask the Product Designer the following: ask the heart doctor if [...] pt is to call for acute concerns. ask the heart doctor if there [...] Fatigue/malaise -Pt was advsied to ask the Product Designer the following: ask the heart doctor if [...] wall. Fatigue - pt to discuss with Product Designer about the possibility of amiodarone causing her [...] the patients recent sleep study - recommended [place] home patient eval of pt - nocturnal [...] the patients recent sleep study - recommended [place] home patient eval of pt - nocturnal [...]
--- OUTSIDE RECORDS SUMMARY | 2018-12-05 15:58 | XMS REPORT | CCD ---
Author Author [facility] Organization [facility] Address [address] [place] [address] Phone Care Team Providers Care Shot Bagger Name Role Phone PP Unavailable CCM Unavailable Summary Purpose Interface Exchange Insurance Providers Payer name Policy type / Coverage type Covered libertarian ID Effective Begin Date Effective End Date WPS Medicare Part B Medicare Part B [id number] Unknown [employer] Medicare Part B [id number] Unknown [employer] in [place] Medicare Part B [id number] Unknown Family history Brother Diagnosis Age At Onset Heart Attack Unknown Mother Diagnosis Age At Onset Hypertension Unknown kidney disease Unknown Stroke Unknown Father Diagnosis Age At Onset Arthritis Unknown Social History Social History Element Codes Description Effective Dates Employment Unknown Retired worked at [employer] 11/20/2017 Marital status Unknown Single 12/16/[address]: 9153205 Former smoker 12/16/[address]: 667260885 Never drinks alcohol 12/16/2014 Allergies, Adverse Reactions, Alerts Substance Reaction Codes Entered Date Inactivated Date Status CODEINE RxNorm: 2670 05/25/2016 No Inactive Date Active ciprofloxacin RxNorm: 51571 12/16/2014 No Inactive Date Active MORPHINE SULFATE [...] ICD-9: 281.1 ICD-10: D51.8 Active 07/04/2016 Unknown Atrophy of thyroid (acquired) ICD-9: 244.8 ICD-10: E03.4 Active 01/23/2017 Unknown Essential (primary) hypertension ICD-9: 401.9 ICD-10: I10 Active 12/15/2014 Unknown 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 Active 06/05/2017 Unknown Type 2 diabetes mellitus without complications ICD-9: 250.00 ICD-10: E11.9 Active 12/15/2014 Unknown Acute bronchitis due to other specified organisms ICD-9: 466.0 ICD-10: J20.8 Active 08/15/2018 Unknown Cough ICD-9: 786.2 ICD-10: R05 Active 07/06/2017 Unknown Encounter for immunization ICD-9: V03.82 ICD-10: [...] ICD-9: 427.31 ICD-10: I48.2 Active 12/15/2014 Unknown Acute upper respiratory infection, [...] anemias ICD-9: 281.1 ICD-10: D51.8 07/04/2016 Active Atrophy of thyroid (acquired) ICD-9: 244.8 ICD-10: E03.4 01/23/2017 Active Essential (primary) hypertension ICD-9: 401.9 ICD-10: I10 12/15/2014 Active 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 06/05/2017 Active Type 2 diabetes mellitus without complications ICD-9: 250.00 ICD-10: E11.9 12/15/2014 Active Acute bronchitis due to other specified organisms ICD-9: 466.0 ICD-10: J20.8 08/15/2018 Active Cough ICD-9: 786.2 ICD-10: R05 07/06/2017 Active Encounter for immunization ICD-9: V03.82 ICD-10: Z23 05/24/2016 Active Pain in left shoulder ICD- 9: 719.41 ICD-10: M25.512 02/26/2018 Active Pain in right shoulder ICD-9: 719.41 ICD-10: M25.511 02/26/2018 Active Nausea ICD-9: 787.02 ICD-10: R11.0 05/18/2015 Active Acute bronchitis due to Hemophilus influenzae ICD-9: 466.0 ICD-10: J20.1 12/04/2017 Active Chronic atrial fibrillation ICD-9: 427.31 ICD-10: I48.2 12/15/2014 Active Acute upper respiratory infection, unspecified [...] (vit B-12) 1,000 mcg/mL injection solution RxNorm: 889753 Milliliter(s) Inj 10/23/2018 10/23/2018 Inactive cyanocobalamin (vit B-12) 1,000 mcg/mL injection solution RxNorm: 167855 Milliliter(s) Inj 10/10/2018 10/10/2018 Inactive Flonase Allergy Relief 50 mcg/actuation nasal spray,suspension RxNorm: 7665564 [employer] 1 [employer] NASAL BID 10/08/2018 04/05/2019 Active cyanocobalamin (vit B-12) 1,000 mcg/mL injection solution RxNorm: 223647 Milliliter(s) Inj 09/27/2018 09/27/2018 Inactive levothyroxine 137 mcg tablet RxNorm: 367261 1 Tablet(s) PO daily 09/12/2018 03/10/2019 Active levothyroxine 137 mcg tablet RxNorm: 259970 1 Tablet(s) PO daily 09/12/2018 09/11/2018 Inactive cyanocobalamin (vit B-12) 1,000 mcg/mL injection solution RxNorm: 377702 Milliliter(s) Inj 09/11/2018 09/11/2018 Inactive levothyroxine 125 mcg tablet RxNorm: 619448 TAKE 1 TABLET BY MOUTH EVERY DAY 09/10/2018 09/11/2018 Inactive Generic For:SYNTHROID 125MCG TAB 09/10/2018 12:06:52 PM cyanocobalamin (vit B-12) 1,000 mcg/mL injection solution RxNorm: 744033 Milliliter(s) Inj 08/29/2018 08/29/2018 Inactive alprazolam 0.25 mg tablet RxNorm: 801381 1 Tablet(s) PO BID 08/21/2018 02/16/2019 Active hydrocodone 5 mg-acetaminophen 325 mg tablet RxNorm: 601100 1-2 Tablet(s) PO Q6 as needed for pain to use for severe pain only 08/20/2018 09/18/2018 Inactive albuterol sulfate 2.5 mg/3 mL (0.083 %) solution for nebulization RxNorm: 995419 3 Milliliter(s) INH Q6 PRN 08/15/2018 No Stop Date Active Aricept 10 mg tablet RxNorm: 014977 1 Tablet(s) PO daily 08/15/2018 08/09/2019 Active liothyronine 5 mcg tablet RxNorm: 200667 Tablet(s) TAKE 1 TABLET BY MOUTH TWICE DAILY 08/15/2018 02/10/2019 Active cyanocobalamin (vit B-12) 1,000 mcg/mL injection solution RxNorm: 287562 Milliliter(s) Inj 08/15/2018 08/15/2018 Inactive Kenalog 40 mg/mL suspension for injection RxNorm: 4287473 Milliliter(s) Inj 08/15/2018 08/15/2018 Inactive doxycycline hyclate 100 mg capsule RxNorm: 0772041 1 Capsule(s) PO BID 08/15/2018 08/24/2018 Inactive cyanocobalamin (vit B-12) 1,000 mcg/mL injection solution RxNorm: 148160 Milliliter(s) Inj 08/01/2018 08/01/2018 Inactive cyanocobalamin (vit B-12) 1,000 mcg/mL injection solution RxNorm: 261230 Milliliter(s) Inj 07/19/2018 07/19/2018 Inactive hydrocodone 5 mg-acetaminophen 325 mg tablet RxNorm: 598499 1-2 Tablet(s) PO Q6 as needed for pain 07/18/2018 08/15/2018 Inactive betamethasone valerate 0.1 % topical ointment RxNorm: 167381 1 TOP BID 07/04/2018 07/03/2018 Inactive applying to skin under nose x 10 days cyanocobalamin (vit B-12) 1,000 mcg/mL injection solution RxNorm: 503695 Milliliter(s) Inj 07/04/2018 07/04/2018 Inactive betamethasone valerate 0.1 % topical ointment RxNorm: 990991 1 TOP BID 07/04/2018 07/13/2018 Inactive applying to skin under nose x 10 days Aricept 10 mg tablet RxNorm: 833848 Tablet(s) 1 Tablet(s) PO daily 06/25/2018 08/14/2018 Inactive cyanocobalamin (vit B-12) 1,000 mcg/mL injection solution RxNorm: 840748 Milliliter(s) Inj 06/20/2018 06/20/2018 Inactive hydrocodone 5 mg-acetaminophen 325 mg tablet RxNorm: 377631 1-2 Tablet(s) PO Q6 as needed for pain 06/20/2018 07/17/2018 Inactive Flonase Allergy Relief 50 mcg/actuation nasal spray,suspension RxNorm: 7633367 [employer] 1 [employer] NASAL BID 06/20/2018 10/07/2018 Inactive cyanocobalamin (vit B-12) 1,000 mcg/mL injection solution RxNorm: 624263 Milliliter(s) Inj 06/06/2018 06/06/2018 Inactive alprazolam 0.25 mg tablet RxNorm: 323568 1 Tablet(s) PO BID 05/25/2018 08/21/2018 Inactive hydrocodone 5 mg-acetaminophen 325 mg tablet RxNorm: 473305 1-2 Tablet(s) PO Q6 as needed for pain 05/24/2018 06/19/2018 Inactive cyanocobalamin (vit B-12) 1,000 mcg/mL injection solution RxNorm: 193372 Milliliter(s) Inj 05/24/2018 05/24/2018 Inactive cyanocobalamin (vit B-12) 1,000 mcg/mL injection solution RxNorm: 047481 Milliliter(s) Inj 05/09/2018 05/09/2018 Inactive Claritin 10 mg tablet RxNorm: 816894 TAKE 1 TABLET BY MOUTH ONCE DAILY 05/08/2018 05/02/2019 Active Generic For:CLARITIN 10MG 05/07/2018 9:13:47 AM cyanocobalamin (vit B-12) 1,000 mcg/mL injection solution RxNorm: 888623 INJECT ONE 1 ML EVERY TWO WEEKS 05/03/2018 04/03/2019 Active 05/03/2018 9:13:42 AM Mobic 15 mg tablet RxNorm: 363010 Tablet(s) 1 Tablet(s) PO daily 04/26/2018 04/20/2019 Active buspirone 15 mg tablet RxNorm: 089628 Tablet(s) TAKE 1 TABLET BY MOUTH TWICE DAILY 04/26/2018 04/20/2019 Active Generic For:BUSPAR 15MG 05/31/2017 9:19:20 AM Norvasc 5 mg tablet RxNorm: 282307 Tablet(s) 1 Tablet(s) PO daily 04/26/2018 04/20/2019 Active cyanocobalamin (vit B-12) 1,000 mcg/mL injection solution RxNorm: 944238 Milliliter(s) Inj 04/26/2018 04/26/2018 Inactive hydrocodone 5 mg-acetaminophen 325 mg tablet RxNorm: 407928 1-2 Tablet(s) PO Q6 as needed for pain 04/25/2018 05/23/2018 Inactive cyanocobalamin (vit B-12) 1,000 mcg/mL injection solution RxNorm: 227479 Milliliter(s) Inj 04/12/2018 04/12/2018 Inactive Topamax 25 mg tablet RxNorm: 583696 1 Tablet(s) PO BID 04/09/2018 05/02/2018 Inactive Generic For:TOPAMAX 25MG 12/06/2016 9:15:13 AM Zoloft 50 mg tablet RxNorm: 490256 TAKE 1 TABLET BY MOUTH ONCE DAILY 04/04/2018 12/29/2018 Active Generic For:ZOLOFT 50MG 04/04/2018 9:13:25 AM cyanocobalamin (vit B-12) 1,000 mcg/mL injection solution RxNorm: 920933 Milliliter(s) Inj 03/30/2018 03/30/2018 Inactive levothyroxine 125 mcg tablet RxNorm: 569176 TAKE 1 TABLET BY MOUTH EVERY DAY 03/26/2018 09/09/2018 Inactive Generic For:SYNTHROID 125MCG TAB 03/26/2018 9:15:59 AM liothyronine 5 mcg tablet RxNorm: 019637 TAKE 1 TABLET BY MOUTH TWICE DAILY 03/26/2018 08/14/2018 Inactive Generic For:CYTOMEL 5MCG 03/26/2018 9:15:54 AM hydrocodone 5 mg-acetaminophen 325 mg tablet RxNorm: 784251 1-2 Tablet(s) PO Q6 as needed for pain 03/19/2018 04/17/2018 Inactive cyanocobalamin (vit B-12) 1,000 mcg/mL injection solution RxNorm: 286744 Milliliter(s) Inj 03/16/2018 03/16/2018 Inactive Flonase Allergy Relief 50 mcg/actuation nasal spray,suspension RxNorm: 7959792 1 [employer] NASAL BID 03/05/2018 06/19/2018 Inactive cyanocobalamin (vit B-12) 1,000 mcg/mL injection solution RxNorm: 351915 Milliliter(s) Inj 03/02/2018 03/02/2018 Inactive alprazolam 0.25 mg tablet RxNorm: 617151 1 Tablet(s) PO BID 02/28/2018 05/27/2018 Inactive cyanocobalamin (vit B-12) 1,000 mcg/mL injection solution RxNorm: 038639 Milliliter(s) Inj 02/08/2018 02/08/2018 Inactive cyanocobalamin (vit B-12) 1,000 mcg/mL injection solution RxNorm: 798263 Milliliter(s) Inj 01/24/2018 01/24/2018 Inactive albuterol sulfate 2.5 mg/3 mL (0.083 %) solution for nebulization RxNorm: 611681 3 Milliliter(s) INH Q6 PRN 01/24/2018 05/02/2018 Inactive Claritin 10 mg tablet RxNorm: 129618 1 Tablet(s) PO daily 01/15/2018 05/07/2018 Inactive cyanocobalamin (vit B-12) 1,000 mcg/mL injection solution RxNorm: 212739 Milliliter(s) Inj 01/10/2018 01/10/2018 Inactive hydrocodone 5 mg-acetaminophen 325 mg tablet RxNorm: 798905 1-2 Tablet(s) PO Q6 as needed for pain 01/09/2018 02/07/2018 Inactive cyanocobalamin (vit B-12) 1,000 mcg/mL injection solution RxNorm: 950425 Milliliter(s) Inj 12/27/2017 12/27/2017 Inactive cyanocobalamin (vit B-12) 1,000 mcg/mL injection solution RxNorm: 059590 1 Milliliter(s) Inj 12/12/2017 12/12/2017 Inactive Zofran ODT 4 mg disintegrating tablet RxNorm: 849941 1 Tablet(s) PO TID as needed 12/08/2017 12/09/2017 Inactive hydrocodone 2.5 mg-guaifenesin 200 mg/5 mL oral solution RxNorm: 824973 5 Milliliter(s) PO 12/04/2017 05/06/2018 Inactive doxycycline hyclate 100 mg capsule RxNorm: 7142825 1 Capsule(s) PO BID 12/04/2017 12/13/2017 Inactive cyanocobalamin (vit B-12) 1,000 mcg/mL injection solution RxNorm: 490416 Milliliter(s) Inj 12/01/2017 12/01/2017 Inactive Flonase Allergy Relief 50 mcg/actuation nasal spray,suspension RxNorm: 1789404 1 [employer] NASAL BID 11/20/2017 2018 Inactive cyanocobalamin (vit B-12) 1,000 mcg/mL injection solution RxNorm: 774294 1 Milliliter(s) Inj 11/17/2017 11/17/2017 Inactive hydrocodone 5 mg-acetaminophen 325 mg tablet RxNorm: 613466 1-2 Tablet(s) PO Q6 as needed for pain 11/16/2017 12/15/2017 Inactive cyanocobalamin (vit B-12) 1,000 mcg/mL injection solution RxNorm: 761055 1 Milliliter(s) Inj 11/02/2017 11/02/2017 Inactive hydrocodone 5 mg-acetaminophen 325 mg tablet RxNorm: 320410 1-2 Tablet(s) PO Q6 as needed for pain 10/25/2017 11/15/2017 Inactive Claritin 10 mg tablet RxNorm: 254397 1 Tablet(s) PO daily 10/25/2017 11/19/2017 Inactive albuterol sulfate 2.5 mg/3 mL (0.083 %) solution for nebulization RxNorm: 958120 3 Milliliter(s) INH Q6 PRN 10/25/2017 01/23/2018 Inactive Claritin 10 mg tablet RxNorm: 723521 1 Tablet(s) PO daily 10/25/2017 10/24/2017 Inactive cyanocobalamin (vit B-12) 1,000 mcg/mL injection solution RxNorm: 935543 1 Milliliter(s) Inj 10/20/2017 10/20/2017 Inactive Zoloft 50 mg tablet RxNorm: 775064 TAKE 1 TABLET BY MOUTH ONCE DAILY 10/13/2017 04/03/2018 Inactive Generic For:ZOLOFT 50MG 10/13/2017 8:59:44 AM cyanocobalamin (vit B-12) 1,000 mcg/mL injection solution RxNorm: 356912 Milliliter(s) Inj 10/06/2017 10/06/2017 Inactive liothyronine 5 mcg tablet RxNorm: 180516 TAKE 1 TABLET BY MOUTH TWICE DAILY 10/03/2017 03/25/2018 Inactive Generic For:CYTOMEL 5MCG 10/03/2017 9:13:38 AM cyanocobalamin (vit B-12) 1,000 mcg/mL injection solution RxNorm: 673893 Milliliter(s) Inj 09/21/2017 09/21/2017 Inactive albuterol sulfate 2.5 mg/3 mL (0.083 %) solution for nebulization RxNorm: 822332 3 Milliliter(s) INH Q6 PRN 09/21/2017 10/24/2017 Inactive hydrocodone 5 mg-acetaminophen 325 mg tablet RxNorm: 569713 1-2 Tablet(s) PO Q6 as needed for pain 09/21/2017 10/20/2017 Inactive Kenalog 40 mg/mL suspension for injection RxNorm: 9371960 Milliliter(s) Inj 09/15/2017 09/15/2017 Inactive Keflex 500 mg capsule RxNorm: 612591 1 Capsule(s) PO TID 09/07/2017 09/16/2017 Inactive Please deliver to patient cyanocobalamin (vit B-12) 1,000 mcg/mL injection solution RxNorm: 034833 Milliliter(s) Inj 09/07/2017 09/07/2017 Inactive alprazolam 0.25 mg tablet RxNorm: 605088 1 Tablet(s) PO BID 09/06/2017 02/27/2018 Inactive Aricept 10 mg tablet RxNorm: 519519 1 Tablet(s) PO daily 09/06/2017 06/24/2018 Inactive hydrocodone 5 mg-acetaminophen 325 mg tablet RxNorm: 821341 1-2 Tablet(s) PO Q6 as needed for pain 08/24/2017 09/20/2017 Inactive cyanocobalamin (vit B-12) 1,000 mcg/mL injection solution RxNorm: 565090 Milliliter(s) Inj 08/24/2017 08/24/2017 Inactive Norvasc 5 mg tablet RxNorm: 057400 1 Tablet(s) PO daily 08/18/2017 04/25/2018 Inactive nystatin 100,000 unit/gram topical powder RxNorm: 856172 1 Gram(s) TOP QID 08/17/2017 08/26/2017 Inactive hydrocodone 5 mg-acetaminophen 325 mg tablet RxNorm: 478902 1-2 Tablet(s) PO Q6 as needed for pain 07/25/2017 08/23/2017 Inactive Tamiflu 75 mg capsule RxNorm: 605103 1 Capsule(s) PO BID 07/24/2017 12/11/2017 Inactive nystatin 100,000 unit/gram topical powder RxNorm: 037435 1 Gram(s) TOP QID 07/14/2017 07/22/2017 Inactive levothyroxine 125 mcg tablet RxNorm: 036925 Tablet(s) 1 Tablet(s) PO daily 07/10/2017 01/05/2018 Inactive nystatin 100,000 unit/gram topical powder RxNorm: 057972 1 Gram(s) TOP QID 07/06/2017 07/13/2017 Inactive cyanocobalamin (vit B-12) 1,000 mcg/mL injection solution RxNorm: 679346 Milliliter(s) Inj 07/06/2017 07/06/2017 Inactive Kenalog 40 mg/mL suspension for injection RxNorm: 3381088 1 Milliliter(s) Inj 06/20/2017 06/20/2017 Inactive doxycycline hyclate 100 mg capsule RxNorm: 2368067 1 Capsule(s) PO BID 06/20/2017 06/26/2017 Inactive cyanocobalamin (vit B-12) 1,000 mcg/mL injection solution RxNorm: 276819 Milliliter(s) Inj 06/20/2017 06/20/2017 Inactive Keflex 500 mg capsule RxNorm: 373970 1 Capsule(s) PO TID 06/14/2017 06/23/2017 Inactive Please deliver to patient Mobic 15 mg tablet RxNorm: 939979 1 Tablet(s) PO daily 06/14/2017 04/25/2018 Inactive cyanocobalamin (vit B-12) 1,000 mcg/mL injection solution RxNorm: 179821 Milliliter(s) Inj 06/05/2017 06/05/2017 Inactive buspirone 15 mg tablet RxNorm: 710223 TAKE 1 TABLET BY MOUTH TWICE DAILY 05/31/2017 04/25/2018 Inactive Generic For:BUSPAR 15MG 05/31/2017 9:19:20 AM cyanocobalamin (vit B-12) 1,000 mcg/mL injection solution RxNorm: 511896 Milliliter(s) Inj 05/25/2017 05/25/2017 Inactive hydrocodone 5 mg-acetaminophen 325 mg tablet RxNorm: 980530 1-2 Tablet(s) PO Q6 as needed for pain 05/25/2017 06/23/2017 Inactive amiodarone 200 mg tablet RxNorm: 451481 1/2 Tablet(s) PO daily 05/22/2017 No Stop Date Active cardiology decreased to 100mg daily cyanocobalamin (vit B-12) 1,000 mcg/mL injection solution RxNorm: 280567 Milliliter(s) Inj 05/16/2017 05/16/2017 Inactive Zofran ODT 4 mg disintegrating tablet RxNorm: 633715 1 Tablet(s) PO TID as needed 05/03/2017 05/04/2017 Inactive hydrocodone 5 mg-acetaminophen 325 mg tablet RxNorm: 396795 1-2 Tablet(s) PO Q6 as needed for pain 05/01/2017 05/05/2017 Inactive cyanocobalamin (vit B-12) 1,000 mcg/mL injection solution RxNorm: 147225 1 Milliliter(s) Inj 05/01/2017 05/01/2017 Inactive cyanocobalamin (vit B-12) 1,000 mcg/mL injection solution RxNorm: 757759 INJECT ONE 1 ML EVERY TWO WEEKS 04/26/2017 12/04/2018 Active 04/26/2017 9:08:52 AM Zoloft 50 mg tablet RxNorm: 927490 Tablet(s) TAKE 1 TABLET BY MOUTH DAILY 04/25/2017 10/12/2017 Inactive Generic For:ZOLOFT 50MG cyanocobalamin (vit B-12) 1,000 mcg/mL injection solution RxNorm: 065364 Milliliter(s) Inj 04/18/2017 04/18/2017 Inactive liothyronine 5 mcg tablet RxNorm: 382732 1 Tablet(s) PO BID 04/13/2017 10/02/2017 Inactive cyanocobalamin (vit B-12) 1,000 mcg/mL injection solution RxNorm: 363904 Milliliter(s) Inj 04/06/2017 04/06/2017 Inactive hydrocodone 5 mg-acetaminophen 325 mg tablet RxNorm: 336223 1-2 Tablet(s) PO Q6 as needed for pain 04/06/2017 04/10/2017 Inactive cyanocobalamin (vit B-12) 1,000 mcg/mL injection solution RxNorm: 183298 Milliliter(s) Inj 03/22/2017 03/22/2017 Inactive alprazolam 0.25 mg tablet RxNorm: 474252 1 Tablet(s) PO BID 03/17/2017 12/11/2017 Inactive alprazolam 0.25 mg tablet RxNorm: 728199 1 Tablet(s) PO BID 03/16/2017 09/05/2017 Inactive hydrocodone 5 mg-acetaminophen 325 mg tablet RxNorm: 928637 1-2 Tablet(s) PO Q6 as needed for pain 03/09/2017 03/13/2017 Inactive cyanocobalamin (vit B-12) 1,000 mcg/mL injection solution RxNorm: 177526 Milliliter(s) Inj 03/09/2017 03/09/2017 Inactive cyanocobalamin (vit B-12) 1,000 mcg/mL injection solution RxNorm: 100358 Milliliter(s) Inj 02/23/2017 02/23/2017 Inactive cyanocobalamin (vit B-12) 1,000 mcg/mL injection solution RxNorm: 601341 Milliliter(s) Inj 02/09/2017 02/09/2017 Inactive hydrocodone 5 mg-acetaminophen 325 mg tablet RxNorm: 638682 1-2 Tablet(s) PO Q6 as needed for pain 02/08/2017 02/12/2017 Inactive Topamax 25 mg tablet RxNorm: 600963 1 Tablet(s) PO BID 01/23/2017 05/22/2017 Inactive Generic For:TOPAMAX 25MG 12/06/2016 9:15:13 AM cyanocobalamin (vit B-12) 1,000 mcg/mL injection solution RxNorm: 416542 Milliliter(s) Inj 01/23/2017 01/23/2017 Inactive cyanocobalamin (vit B-12) 1,000 mcg/mL injection solution RxNorm: 789953 Milliliter(s) Inj 01/10/2017 01/10/2017 Inactive hydrocodone 5 mg-acetaminophen 325 mg tablet RxNorm: 992704 1-2 Tablet(s) PO Q6 as needed for pain 01/09/2017 01/13/2017 Inactive cyanocobalamin (vit B-12) 1,000 mcg/mL injection solution RxNorm: 340589 1 Milliliter(s) Inj 12/28/2016 12/28/2016 Inactive cyanocobalamin (vit B-12) 1,000 mcg/mL injection solution RxNorm: 932420 Milliliter(s) Inj 12/14/2016 12/14/2016 Inactive buspirone 15 mg tablet RxNorm: 413106 1 Tablet(s) PO BID 12/12/2016 05/30/2017 Inactive hydrocodone 5 mg-acetaminophen 325 mg tablet RxNorm: 754193 1-2 Tablet(s) PO Q6 as needed for pain 12/08/2016 12/12/2016 Inactive Topamax 25 mg tablet RxNorm: 920897 TAKE 1 TABLET BY MOUTH EVERY DAY AT BEDTIME 12/06/2016 01/22/2017 Inactive Generic For:TOPAMAX 25MG 12/06/2016 9:15:13 AM Lac-Hydrin Five 5 % lotion RxNorm: 182682 1 Gram(s) TOP daily 12/02/2016 05/02/2018 Inactive cyanocobalamin (vit B-12) 1,000 mcg/mL injection solution RxNorm: 960171 Milliliter(s) Inj 11/24/2016 11/24/2016 Inactive Ceftin 500 mg tablet RxNorm: 773670 1 Tablet(s) PO BID 11/11/2016 06/13/2017 Inactive Cipro 500 mg tablet RxNorm: 089692 1 Tablet(s) PO BID 11/11/2016 11/10/2016 Inactive Cipro 500 mg tablet RxNorm: 544548 1 Tablet(s) PO BID 11/11/2016 11/11/2016 Inactive cyanocobalamin (vit B-12) 1,000 mcg/mL injection solution RxNorm: 116538 1 Milliliter(s) Inj 11/07/2016 11/07/2016 Inactive hydrocodone 5 mg-acetaminophen 325 mg tablet RxNorm: 312091 1-2 Tablet(s) PO Q6 as needed for pain 11/02/2016 11/06/2016 Inactive cyanocobalamin (vit B-12) 1,000 mcg/mL injection solution RxNorm: 358625 Milliliter(s) Inj 10/24/2016 10/24/2016 Inactive levothyroxine 125 mcg tablet RxNorm: 769539 Tablet(s) 1 Tablet(s) PO daily 10/24/2016 04/21/2017 Inactive liothyronine 5 mcg tablet RxNorm: 756681 1 Tablet(s) PO BID 10/24/2016 04/12/2017 Inactive hydrocodone 5 mg-acetaminophen 325 mg tablet RxNorm: 126549 1-2 Tablet(s) PO Q6 as needed for pain 10/17/2016 10/21/2016 Inactive Keflex 500 mg capsule RxNorm: 409423 1 Capsule(s) PO TID 10/07/2016 10/06/2016 Inactive Keflex 500 mg capsule RxNorm: 034910 1 Capsule(s) PO TID 10/07/2016 10/16/2016 Inactive Please deliver to patient cyanocobalamin (vit B-12) 1,000 mcg/mL injection solution RxNorm: 171259 1 Milliliter(s) Inj 09/29/2016 09/29/2016 Inactive alprazolam 0.25 mg tablet RxNorm: 468012 1 Tablet(s) PO BID 09/20/2016 03/16/2017 Inactive Cozaar 100 mg tablet RxNorm: 791705 1 Tablet(s) PO daily 09/14/2016 No Stop Date Active metoprolol tartrate 50 mg tablet RxNorm: 201948 1/2 Tablet(s) PO BID 09/14/2016 12/12/2016 Inactive Zoloft 50 mg tablet RxNorm: 049703 Tablet(s) TAKE 1 TABLET BY MOUTH DAILY 09/14/2016 03/12/2017 Inactive Generic For:ZOLOFT 50MG liothyronine 5 mcg tablet RxNorm: 066059 1 Tablet(s) PO BID 09/14/2016 10/23/2016 Inactive Calmoseptine 0.44 %-20.6 % topical ointment RxNorm: 181034 1 Application TOP BID and as needed to sore on buttocks 09/07/2016 No Stop Date Active cyanocobalamin (vit B-12) 1,000 mcg/mL injection solution RxNorm: 737189 Milliliter(s) Inj 08/29/2016 08/29/2016 Inactive hydrocodone 5 mg-acetaminophen 325 mg tablet RxNorm: 672182 1-2 Tablet(s) PO Q6 as needed for pain 08/29/2016 10/16/2016 Inactive levothyroxine 125 mcg tablet RxNorm: 089023 1 Tablet(s) PO daily 08/25/2016 10/23/2016 Inactive Topamax 25 mg tablet RxNorm: 850445 TAKE 1 TABLET BY MOUTH EVERY DAY AT BEDTIME 08/17/2016 12/05/2016 Inactive Generic For:TOPAMAX 25MG 08/17/2016 2:14:37 PM hydrocodone 5 mg-acetaminophen 325 mg tablet RxNorm: 597431 1-2 Tablet(s) PO Q6 as needed for pain 08/11/2016 08/28/2016 Inactive hydrocodone 5 mg-acetaminophen 325 mg tablet RxNorm: 754389 1 -2 Tablet(s) PO Q6 as needed for pain 08/11/2016 08/18/2016 Inactive hydrocodone 5 mg-acetaminophen 325 mg tablet RxNorm: 136434 1 Tablet(s) PO Q6 as needed for pain 08/05/2016 08/10/2016 Inactive cyanocobalamin (vit B-12) 1,000 mcg/mL injection solution RxNorm: 338090 Milliliter(s) Inj 08/04/2016 08/04/2016 Inactive Norvasc 10 mg tablet RxNorm: 035023 1 Tablet(s) PO daily 07/26/2016 07/20/2017 Inactive alprazolam 0.25 mg tablet RxNorm: 093140 1 Tablet(s) PO QHS 07/21/2016 09/19/2016 Inactive Norvasc 5 mg tablet RxNorm: 020027 1 Tablet(s) PO daily 07/21/2016 07/25/2016 Inactive levothyroxine 125 mcg tablet RxNorm: 004223 1 Tablet(s) PO daily 07/21/2016 12/11/2017 Inactive cyanocobalamin (vit B-12) 1,000 mcg/mL injection solution RxNorm: 501979 Milliliter(s) Inj 07/21/2016 07/21/2016 Inactive Zoloft 50 mg tablet RxNorm: 132261 Tablet(s) TAKE 1 TABLET BY MOUTH DAILY 07/21/2016 09/13/2016 Inactive Generic For:ZOLOFT 50MG cyanocobalamin (vit B-12) 1,000 mcg/mL injection solution RxNorm: 367308 1 Milliliter(s) Inj 07/05/2016 07/05/2016 Inactive cyanocobalamin (vit B-12) 1,000 mcg/mL injection solution RxNorm: 474185 1 Milliliter(s) Inj 06/22/2016 06/22/2016 Inactive cyanocobalamin (vit B-12) 1,000 mcg/mL injection solution RxNorm: 506134 Milliliter(s) Inj 06/09/2016 06/09/2016 Inactive Aricept 10 mg tablet RxNorm: 104319 1 Tablet(s) PO daily 05/27/2016 05/21/2017 Inactive Mobic 15 mg tablet RxNorm: 479521 1 Tablet(s) PO daily 05/27/2016 05/21/2017 Inactive levothyroxine 125 mcg tablet RxNorm: 937050 1 Tablet(s) PO daily 05/25/2016 07/20/2016 Inactive cyanocobalamin (vit B-12) 1,000 mcg/mL injection solution RxNorm: 773914 1 Milliliter(s) Inj 05/25/2016 05/25/2016 Inactive doxycycline hyclate 100 mg capsule RxNorm: 5582534 1 Capsule(s) PO BID 05/16/2016 05/15/2016 Inactive doxycycline hyclate 100 mg capsule RxNorm: 5738680 1 Capsule(s) PO BID 05/16/2016 05/22/2016 Inactive cyanocobalamin (vit B-12) 1,000 mcg/mL injection solution RxNorm: 705748 Milliliter(s) Inj 05/10/2016 05/10/2016 Inactive cyanocobalamin (vit B-12) 1,000 mcg/mL injection solution RxNorm: 592411 Milliliter(s) Inj 04/26/2016 04/26/2016 Inactive Topamax 25 mg tablet RxNorm: 741823 1 Tablet(s) PO QPM 04/22/2016 08/16/2016 Inactive cyanocobalamin (vit B-12) 1,000 mcg/mL injection solution RxNorm: 714901 Milliliter(s) 1 Milliliter(s) Inj [id number] 04/11/2016 12/31/2017 Inactive liothyronine 5 mcg tablet RxNorm: 216793 1 Tablet(s) PO BID 04/11/2016 09/13/2016 Inactive cyanocobalamin (vit B-12) 1,000 mcg/mL injection solution RxNorm: 768801 Milliliter(s) Inj 04/11/2016 04/11/2016 Inactive cyanocobalamin (vit B-12) 1,000 mcg/mL injection solution RxNorm: 740430 Milliliter(s) Inj 03/31/2016 03/31/2016 Inactive cyanocobalamin (vit B-12) 1,000 mcg/mL injection solution RxNorm: 516024 1 Milliliter(s) Inj 03/15/2016 03/15/2016 Inactive levothyroxine 125 mcg tablet RxNorm: 806316 1 Tablet(s) PO daily 2016 03/03/2016 Inactive levothyroxine 125 mcg tablet RxNorm: 785911 1 Tablet(s) PO daily 2016 05/24/2016 Inactive cyanocobalamin (vit B-12) 1,000 mcg/mL injection solution RxNorm: 074660 Milliliter(s) Inj 02/25/2016 02/25/2016 Inactive cyanocobalamin (vit B-12) 1,000 mcg/mL injection solution RxNorm: 768965 1 Milliliter(s) Inj 02/02/2016 02/02/2016 Inactive sucralfate 1 gram tablet RxNorm: 318682 1 Tablet(s) PO QHS 01/25/2016 No Stop Date Active amiodarone 200 mg tablet RxNorm: 171199 1/2 Tablet(s) PO BID 01/25/2016 05/21/2017 Inactive cyanocobalamin (vit B-12) 1,000 mcg/mL injection solution RxNorm: 828868 Milliliter(s) Inj 01/18/2016 01/18/2016 Inactive cyanocobalamin (vit B-12) 1,000 mcg/mL injection solution RxNorm: 932738 Milliliter(s) Inj 12/29/2015 12/29/2015 Inactive Topamax 25 mg tablet RxNorm: 655052 1 Tablet(s) PO QPM 12/08/2015 04/05/2016 Inactive cyanocobalamin (vit B-12) 1,000 mcg/mL injection solution RxNorm: 864961 Milliliter(s) Inj 12/08/2015 12/08/2015 Inactive Bactrim DS 800 mg-160 mg tablet RxNorm: 955985 1 Tablet(s) PO BID 11/23/2015 11/22/2015 Inactive cyanocobalamin (vit B-12) 1,000 mcg/mL injection solution RxNorm: 524999 Milliliter(s) Inj 11/23/2015 11/23/2015 Inactive Bactrim DS 800 mg-160 mg tablet RxNorm: 722318 1 Tablet(s) PO BID 11/23/2015 11/29/2015 Inactive cyanocobalamin (vit B-12) 1,000 mcg/mL injection solution RxNorm: 255266 Milliliter(s) Inj 11/11/2015 11/11/2015 Inactive amoxicillin 500 mg capsule RxNorm: 190226 1 Capsule(s) PO TID 11/10/2015 11/19/2015 Inactive Zithromax Z-Henrique 250 mg tablet RxNorm: 996542 1 Tablet(s) PO UD 11/10/2015 01/24/2016 Inactive zpack x 1 amoxicillin 500 mg capsule RxNorm: 702442 1 Capsule(s) PO TID 11/10/2015 11/09/2015 Inactive cyanocobalamin (vit B-12) 1,000 mcg/mL injection solution RxNorm: 925419 1 Milliliter(s) Inj 10/29/2015 10/29/2015 Inactive [place] 3 capsule RxNorm: 1 Capsule(s) PO QAM , 2 Capsules at noon, 1 Capsule QHS 10/13/2015 No Stop Date Active potassium chloride ER 20 mEq tablet,extended release RxNorm: 307985 2 Tablet(s) PO daily at noon 10/13/2015 No Stop Date Active alprazolam 0.25 mg tablet RxNorm: 276880 1 Tablet(s) PO QHS 10/13/2015 07/20/2016 Inactive amiodarone 200 mg tablet RxNorm: 074225 1 Tablet(s) PO BID 10/13/2015 01/24/2016 Inactive cyanocobalamin (vit B-12) 1,000 mcg/mL injection solution RxNorm: 145575 1 Milliliter(s) Inj 10/12/2015 10/12/2015 Inactive Zofran 4 mg tablet RxNorm: 395170 1 Tablet(s) PO daily as needed 10/07/2015 05/24/2016 Inactive Zoloft 50 mg tablet RxNorm: 849008 TAKE 1 TABLET BY MOUTH DAILY 10/05/2015 05/01/2016 Inactive Generic For:ZOLOFT 50MG cyanocobalamin (vit B-12) 1,000 mcg/mL injection solution RxNorm: 097358 1 Milliliter(s) Inj 09/29/2015 09/29/2015 Inactive cyanocobalamin (vit B-12) 1,000 mcg/mL injection solution RxNorm: 992007 1 Milliliter(s) Inj 09/17/2015 09/17/2015 Inactive Norvasc 5 mg tablet RxNorm: 240669 1 Tablet(s) PO daily 09/17/2015 07/20/2016 Inactive liothyronine 5 mcg tablet RxNorm: 570427 1 Tablet(s) PO BID 09/17/2015 03/14/2016 Inactive Zoloft 50 mg tablet RxNorm: 687759 1 Tablet(s) PO daily 09/17/2015 10/04/2015 Inactive buspirone 15 mg tablet RxNorm: 012296 1 Tablet(s) PO BID 09/17/2015 09/10/2016 Inactive buspirone 15 mg tablet RxNorm: 861317 1 Tablet(s) PO BID 09/14/2015 09/16/2015 Inactive Topamax 25 mg tablet RxNorm: 067640 1 Tablet(s) PO QPM 09/03/2015 12/07/2015 Inactive cyanocobalamin (vit B-12) 1,000 mcg/mL injection solution RxNorm: 850476 1 Milliliter(s) Inj 09/03/2015 09/03/2015 Inactive cyanocobalamin (vit B-12) 1,000 mcg/mL injection solution RxNorm: 918841 Milliliter(s) Inj 08/17/2015 08/17/2015 Inactive cyanocobalamin (vit B-12) 1,000 mcg/mL injection solution RxNorm: 300688 Milliliter(s) Inj 08/06/2015 08/06/2015 Inactive levothyroxine 150 mcg tablet RxNorm: 583938 1 Tablet(s) PO daily 07/22/2015 03/03/2016 Inactive Aricept 10 mg tablet RxNorm: 427417 1 Tablet(s) PO daily 07/22/2015 05/26/2016 Inactive Mobic 15 mg tablet RxNorm: 342293 1 Tablet(s) PO daily 07/22/2015 05/26/2016 Inactive cyanocobalamin (vit B-12) 1,000 mcg/mL injection solution RxNorm: 586003 Milliliter(s) Inj 07/22/2015 07/22/2015 Inactive liothyronine 5 mcg tablet RxNorm: 132824 1 Tablet(s) PO BID 07/22/2015 09/16/2015 Inactive cyanocobalamin (vit B-12) 1,000 mcg/mL injection solution RxNorm: 820893 Milliliter(s) Inj 07/08/2015 07/08/2015 Inactive cyanocobalamin (vit B-12) 1,000 mcg/mL injection solution RxNorm: 307386 Milliliter(s) Inj 06/23/2015 06/23/2015 Inactive cyanocobalamin (vit B-12) 1,000 mcg/mL injection solution RxNorm: 259971 1 Milliliter(s) Inj 06/08/2015 06/08/2015 Inactive cyanocobalamin (vit B-12) 1,000 mcg/mL injection solution RxNorm: 641973 Milliliter(s) Inj 05/27/2015 05/27/2015 Inactive Aricept 10 mg tablet RxNorm: 973121 1 Tablet(s) PO daily 05/20/2015 07/21/2015 Inactive Zofran 4 mg tablet RxNorm: 092377 1 Tablet(s) PO daily as needed 05/20/2015 06/18/2015 Inactive alprazolam 0.25 mg tablet RxNorm: 774692 1 Tablet(s) PO BID 05/20/2015 10/12/2015 Inactive Mobic 15 mg tablet RxNorm: 424110 1 Tablet(s) PO daily 05/20/2015 07/21/2015 Inactive tramadol ER 100 mg tablet,extended release 24 hr RxNorm: 373551 1 Tablet(s) PO Q6 as needed 05/13/2015 No Stop Date Active cyanocobalamin (vit B-12) 1,000 mcg/mL injection solution RxNorm: 482601 1 Milliliter(s) Inj 05/12/2015 05/12/2015 Inactive Topamax 25 mg tablet RxNorm: 431745 1 Tablet(s) PO BID (start at one pill at bedtime x 1week then twice daily thereafter) 05/12/2015 09/02/2015 Inactive cyanocobalamin (vit B-12) 1,000 mcg/mL injection kit RxNorm: 312346 kit Inj 04/30/2015 04/30/2015 Inactive cyanocobalamin (vit B-12) 1,000 mcg/mL injection solution RxNorm: 192209 Milliliter(s) Inj 04/16/2015 04/16/2015 Inactive levothyroxine 150 mcg tablet RxNorm: 732800 1 Tablet(s) PO daily 04/08/2015 07/21/2015 Inactive cyanocobalamin (vit B-12) 1,000 mcg/mL injection solution RxNorm: 850306 Milliliter(s) 1 Milliliter(s) Inj [id number] 04/08/2015 04/10/2016 Inactive Cytomel 5 mcg tablet RxNorm: 407724 1 Tablet(s) PO BID 04/08/2015 10/12/2015 Inactive Cytomel 5 mcg tablet RxNorm: 492773 1 Tablet(s) PO BID 04/07/2015 04/07/2015 Inactive Cytomel 5 mcg tablet RxNorm: 287987 1 Tablet(s) PO BID 04/07/2015 04/06/2015 Inactive cyanocobalamin (vit B-12) 1,000 mcg/mL injection solution RxNorm: 738122 Milliliter(s) Inj 04/02/2015 04/02/2015 Inactive cyanocobalamin (vit B-12) 1,000 mcg/mL injection solution RxNorm: 364515 Milliliter(s) Inj 03/18/2015 03/18/2015 Inactive cyanocobalamin (vit B-12) 1,000 mcg/mL injection solution RxNorm: 914572 Milliliter(s) 1 Milliliter(s) Inj [id number] 03/18/2015 04/07/2015 Inactive cyanocobalamin (vit B-12) 1,000 mcg/mL injection solution RxNorm: 598928 1 Milliliter(s) Inj [id number] 03/16/2015 03/17/2015 Inactive cyanocobalamin (vit B-12) 1,000 mcg/mL injection solution RxNorm: 218360 Milliliter(s) Inj 03/03/2015 03/03/2015 Inactive cyanocobalamin (vit B-12) 1,000 mcg/mL injection solution RxNorm: 673348 Milliliter(s) Inj 02/18/2015 02/18/2015 Inactive cyanocobalamin (vit B-12) 1,000 mcg/mL injection solution RxNorm: 317166 Milliliter(s) Inj 02/04/2015 02/04/2015 Inactive cyanocobalamin (vit B-12) 1,000 mcg/mL injection solution RxNorm: 470373 Milliliter(s) Inj 01/22/2015 01/22/2015 Inactive Lac-Hydrin Five 5 % lotion RxNorm: 482886 1 TOP daily 01/13/2015 03/13/2015 Inactive Lac-Hydrin Five 5 % lotion RxNorm: 457910 1 TOP daily 01/13/2015 01/12/2015 Inactive cyanocobalamin (vit B-12) 1,000 mcg/mL injection solution RxNorm: 518253 Milliliter(s) Inj 01/08/2015 01/08/2015 Inactive cyanocobalamin (vit B-12) 1,000 mcg/mL injection solution RxNorm: 173878 Milliliter(s) Inj 12/25/2014 12/25/2014 Inactive levothyroxine 150 mcg tablet RxNorm: 251858 1 Tablet(s) PO daily 12/24/2014 04/07/2015 Inactive tramadol 50 mg tablet RxNorm: 307979 1-2 Tablet(s) PO Q6 as needed 12/17/2014 05/12/2015 Inactive alprazolam 0.25 mg tablet RxNorm: 133266 1 Tablet(s) PO BID 12/17/2014 04/15/2015 Inactive Pradaxa 150 mg capsule RxNorm: 0404782 1 Capsule(s) PO BID 12/16/2014 No Stop Date Active metoprolol tartrate 50 mg tablet RxNorm: 802152 1/2 Tablet(s) PO BID 12/16/2014 09/13/2016 Inactive buspirone 15 mg tablet RxNorm: 239080 1 Tablet(s) PO BID 12/16/2014 09/13/2015 Inactive cyanocobalamin (vit B-12) 1,000 mcg/mL injection solution RxNorm: 876093 1 Milliliter(s) Inj [id number] 12/16/2014 03/15/2015 Inactive cyanocobalamin (vit B-12) 1,000 mcg/mL injection solution RxNorm: 664637 1 Milliliter(s) Inj [id number] 12/16/2014 12/15/2014 Inactive sucralfate 1 gram tablet RxNorm: 011609 Tablet(s) PO QID 12/16/2014 12/10/2015 Inactive cyanocobalamin (vit B-12) 1,000 mcg/mL injection solution RxNorm: 641473 Milliliter(s) Inj 12/10/2014 12/10/2014 Inactive cyanocobalamin (vit B-12) 1,000 mcg/mL injection solution RxNorm: 187041 Milliliter(s) Inj 11/26/2014 11/26/2014 Inactive Zoloft 50 mg tablet RxNorm: 370306 1 Tablet(s) PO daily 11/24/2014 06/21/2015 Inactive Zoloft 50 mg tablet RxNorm: 248733 1 Tablet(s) PO daily 11/24/2014 11/23/2014 Inactive cyanocobalamin (vit B-12) 1,000 mcg/mL injection kit RxNorm: 111626 Milliliter(s) Inj 11/12/2014 11/12/2014 Inactive cyanocobalamin (vit B-12) 1,000 mcg/mL injection solution RxNorm: 848145 Milliliter(s) Inj 10/28/2014 10/28/2014 Inactive [SAVINGS FOR NON-COVERED DRUGS -- BIN:[id number], PCN: [id number], Group: [id number], ID# [id number], Questions: . THIS IS NOT INSURANCE.] promethazine oral RxNorm: 8745 oral No Start Date Active tramadol 50 mg tablet RxNorm: 076782 1 Tablet(s) PO TID No Start Date Active digoxin 125 mcg tablet RxNorm: 870065 Tablet(s) PO every other day No Start Date Active furosemide 40 mg tablet RxNorm: 497219 1 Tablet(s) PO daily No Start Date Active Vitamin D3 5,000 unit tablet RxNorm: 984657 1 Tablet(s) PO daily No Start Date Active erythromycin 250 mg capsule,delayed release RxNorm: 594269 1 Capsule(s) PO AC No Start Date Active Protonix 40 mg tablet,delayed release RxNorm: 664017 1 Tablet(s) PO BID No Start Date Active Cozaar 100 mg tablet RxNorm: 530378 1 Tablet(s) PO daily No Start Date 09/13/2016 Inactive sucralfate 1 gram tablet RxNorm: 996416 Tablet(s) PO QID No Start Date 12/15/2014 Inactive amiodarone 200 mg tablet RxNorm: 543207 2 Tablet(s) PO daily No Start Date 10/13/2015 Inactive buspirone 15 mg tablet RxNorm: 942704 1 Tablet(s) PO daily No Start Date 12/15/2014 Inactive potassium chloride ER 20 mEq tablet,extended release RxNorm: 253924 1 Tablet(s) PO daily No Start Date 10/12/2015 Inactive Prilosec 40 mg capsule,delayed release RxNorm: 131737 1 Capsule(s) PO daily No Start Date 09/02/2015 Inactive [place] 3 capsule RxNorm: Capsule(s) PO No Start Date 10/12/2015 Inactive alprazolam 0.25 mg tablet RxNorm: 398320 Tablet(s) PO QHS No Start Date 12/16/2014 Inactive levothyroxine 125 mcg tablet RxNorm: 418615 1 Tablet(s) PO daily No Start Date 12/23/2014 Inactive liothyronine 5 mcg tablet RxNorm: 671194 1 Tablet(s) PO BID No Start Date 07/21/2015 Inactive Mobic 15 mg tablet RxNorm: 128613 Tablet(s) PO daily No Start Date 05/19/2015 Inactive Norvasc 5 mg tablet RxNorm: 920797 1 Tablet(s) PO daily No Start Date 09/16/2015 Inactive Zofran 4 mg tablet RxNorm: 800397 1 Tablet(s) PO daily as needed No Start Date 05/19/2015 Inactive Tamiflu 75 mg capsule RxNorm: 765048 1 Capsule(s) PO BID No Start Date 07/23/2017 Inactive tramadol 50 mg tablet RxNorm: 138359 1 Tablet(s) PO daily as needed No Start Date 12/16/2014 Inactive amiodarone 200 mg tablet RxNorm: 098732 1 Tablet(s) PO daily No Start Date 10/12/2015 Inactive Zofran ODT 4 mg disintegrating tablet RxNorm: 576837 1 Tablet(s) PO TID as needed No Start Date 05/02/2017 Inactive albuterol sulfate 2.5 mg/3 mL (0.083 %) solution for nebulization RxNorm: 563362 3 Milliliter(s) INH Q6 PRN No Start Date 09/20/2017 Inactive meclizine 25 mg tablet RxNorm: 427429 Tablet(s) PO as needed No Start Date 05/24/2016 Inactive Pradaxa 150 mg capsule RxNorm: 8901854 1 Capsule(s) PO daily No Start Date 12/15/2014 Inactive metoprolol tartrate 50 mg tablet RxNorm: 534176 1/2 Tablet(s) PO No Start Date 12/15/2014 Inactive Aricept 10 mg tablet RxNorm: 300545 Tablet(s) PO daily No Start Date 05/19/2015 Inactive Calmoseptine 0.44 %-20.6 % topical ointment RxNorm: 629167 1 Application TOP BID and as needed to sore on buttocks No Start Date 09/06/2016 Inactive Zithromax Z-Henrique 250 mg tablet RxNorm: 595047 1 Tablet(s) PO UD No Start Date 11/09/2015 Inactive zpack x 1 Medication Administered Medication Codes Instructions Start Date Status cyanocobalamin (vit B-12) 1,000 mcg/mL injection solution RxNorm: 331444 Milliliter 10/23/2018 Active cyanocobalamin (vit B-12) 1,000 mcg/mL injection solution RxNorm: 759458 Milliliter 10/10/2018 No longer Active cyanocobalamin (vit B-12) 1,000 mcg/mL injection solution RxNorm: 585307 Milliliter 09/27/2018 No longer Active cyanocobalamin (vit B-12) 1,000 mcg/mL injection solution RxNorm: 862157 Milliliter 09/11/2018 No longer Active cyanocobalamin (vit B-12) 1,000 mcg/mL injection solution RxNorm: 685774 Milliliter 08/29/2018 No longer Active cyanocobalamin (vit B-12) 1,000 mcg/mL injection solution RxNorm: 633413 Milliliter 08/15/2018 No longer Active Kenalog 40 mg/mL suspension for injection RxNorm: 4792440 Milliliter 08/15/2018 No longer Active cyanocobalamin (vit B-12) 1,000 mcg/mL injection solution RxNorm: 859504 Milliliter 08/01/2018 No longer Active cyanocobalamin (vit B-12) 1,000 mcg/mL injection solution RxNorm: 039368 Milliliter 07/19/2018 No longer Active cyanocobalamin (vit B-12) 1,000 mcg/mL injection solution RxNorm: 503244 Milliliter 07/04/2018 No longer Active cyanocobalamin (vit B-12) 1,000 mcg/mL injection solution RxNorm: 807739 Milliliter 06/20/2018 No longer Active cyanocobalamin (vit B-12) 1,000 mcg/mL injection solution RxNorm: 072494 Milliliter 06/06/2018 No longer Active cyanocobalamin (vit B-12) 1,000 mcg/mL injection solution RxNorm: 602848 Milliliter 05/24/2018 No longer Active cyanocobalamin (vit B-12) 1,000 mcg/mL injection solution RxNorm: 572846 Milliliter 05/09/2018 No longer Active cyanocobalamin (vit B-12) 1,000 mcg/mL injection solution RxNorm: 663438 Milliliter 04/26/2018 No longer Active cyanocobalamin (vit B-12) 1,000 mcg/mL injection solution RxNorm: 558148 Milliliter 04/12/2018 No longer Active cyanocobalamin (vit B-12) 1,000 mcg/mL injection solution RxNorm: 594364 Milliliter 03/30/2018 No longer Active cyanocobalamin (vit B-12) 1,000 mcg/mL injection solution RxNorm: 870868 Milliliter 03/16/2018 No longer Active cyanocobalamin (vit B-12) 1,000 mcg/mL injection solution RxNorm: 363770 Milliliter 03/02/2018 No longer Active cyanocobalamin (vit B-12) 1,000 mcg/mL injection solution RxNorm: 064780 Milliliter 02/08/2018 No longer Active cyanocobalamin (vit B-12) 1,000 mcg/mL injection solution RxNorm: 088479 Milliliter 01/24/2018 No longer Active cyanocobalamin (vit B-12) 1,000 mcg/mL injection solution RxNorm: 485994 Milliliter 01/10/2018 No longer Active cyanocobalamin (vit B-12) 1,000 mcg/mL injection solution RxNorm: 300201 Milliliter 12/27/2017 No longer Active cyanocobalamin (vit B-12) 1,000 mcg/mL injection solution RxNorm: 682194 1Milliliter 12/12/2017 No longer Active cyanocobalamin (vit B-12) 1,000 mcg/mL injection solution RxNorm: 122146 Milliliter 12/01/2017 No longer Active cyanocobalamin (vit B-12) 1,000 mcg/mL injection solution RxNorm: 934799 1Milliliter 11/17/2017 No longer Active cyanocobalamin (vit B-12) 1,000 mcg/mL injection solution RxNorm: 277906 1Milliliter 11/02/2017 No longer Active cyanocobalamin (vit B-12) 1,000 mcg/mL injection solution RxNorm: 073703 1Milliliter 10/20/2017 No longer Active cyanocobalamin (vit B-12) 1,000 mcg/mL injection solution RxNorm: 398091 Milliliter 10/06/2017 No longer Active cyanocobalamin (vit B-12) 1,000 mcg/mL injection solution RxNorm: 623546 Milliliter 09/21/2017 No longer Active Kenalog 40 mg/mL suspension for injection RxNorm: 6959041 Milliliter 09/15/2017 No longer Active cyanocobalamin (vit B-12) 1,000 mcg/mL injection solution RxNorm: 983960 Milliliter 09/07/2017 No longer Active cyanocobalamin (vit B-12) 1,000 mcg/mL injection solution RxNorm: 266266 Milliliter 08/24/2017 No longer Active cyanocobalamin (vit B-12) 1,000 mcg/mL injection solution RxNorm: 739256 Milliliter 07/06/2017 No longer Active Kenalog 40 mg/mL suspension for injection RxNorm: 9805358 1Milliliter 06/20/2017 No longer Active cyanocobalamin (vit B-12) 1,000 mcg/mL injection solution RxNorm: 342418 Milliliter 06/20/2017 No longer Active cyanocobalamin (vit B-12) 1,000 mcg/mL injection solution RxNorm: 213773 Milliliter 06/05/2017 No longer Active cyanocobalamin (vit B-12) 1,000 mcg/mL injection solution RxNorm: 753422 Milliliter 05/25/2017 No longer Active cyanocobalamin (vit B-12) 1,000 mcg/mL injection solution RxNorm: 925440 Milliliter 05/16/2017 No longer Active cyanocobalamin (vit B-12) 1,000 mcg/mL injection solution RxNorm: 224107 1Milliliter 05/01/2017 No longer Active cyanocobalamin (vit B-12) 1,000 mcg/mL injection solution RxNorm: 265459 Milliliter 04/18/2017 No longer Active cyanocobalamin (vit B-12) 1,000 mcg/mL injection solution RxNorm: 107652 Milliliter 04/06/2017 No longer Active cyanocobalamin (vit B-12) 1,000 mcg/mL injection solution RxNorm: 205533 Milliliter 03/22/2017 No longer Active cyanocobalamin (vit B-12) 1,000 mcg/mL injection solution RxNorm: 114776 Milliliter 03/09/2017 No longer Active cyanocobalamin (vit B-12) 1,000 mcg/mL injection solution RxNorm: 166130 Milliliter 02/23/2017 No longer Active cyanocobalamin (vit B-12) 1,000 mcg/mL injection solution RxNorm: 781396 Milliliter 02/09/2017 No longer Active cyanocobalamin (vit B-12) 1,000 mcg/mL injection solution RxNorm: 651257 Milliliter 01/23/2017 No longer Active cyanocobalamin (vit B-12) 1,000 mcg/mL injection solution RxNorm: 907020 Milliliter 01/10/2017 No longer Active cyanocobalamin (vit B-12) 1,000 mcg/mL injection solution RxNorm: 227479 1Milliliter 12/28/2016 No longer Active cyanocobalamin (vit B-12) 1,000 mcg/mL injection solution RxNorm: 868411 Milliliter 12/14/2016 No longer Active cyanocobalamin (vit B-12) 1,000 mcg/mL injection solution RxNorm: 755273 Milliliter 11/24/2016 No longer Active cyanocobalamin (vit B-12) 1,000 mcg/mL injection solution RxNorm: 313493 1Milliliter 11/07/2016 No longer Active cyanocobalamin (vit B-12) 1,000 mcg/mL injection solution RxNorm: 521300 Milliliter 10/24/2016 No longer Active cyanocobalamin (vit B-12) 1,000 mcg/mL injection solution RxNorm: 002253 1Milliliter 09/29/2016 No longer Active cyanocobalamin (vit B-12) 1,000 mcg/mL injection solution RxNorm: 808579 Milliliter 08/29/2016 No longer Active cyanocobalamin (vit B-12) 1,000 mcg/mL injection solution RxNorm: 759559 Milliliter 08/04/2016 No longer Active cyanocobalamin (vit B-12) 1,000 mcg/mL injection solution RxNorm: 710992 Milliliter 07/21/2016 No longer Active cyanocobalamin (vit B-12) 1,000 mcg/mL injection solution RxNorm: 990455 1Milliliter 07/05/2016 No longer Active cyanocobalamin (vit B-12) 1,000 mcg/mL injection solution RxNorm: 135834 1Milliliter 06/22/2016 No longer Active cyanocobalamin (vit B-12) 1,000 mcg/mL injection solution RxNorm: 287457 Milliliter 06/09/2016 No longer Active cyanocobalamin (vit B-12) 1,000 mcg/mL injection solution RxNorm: 236760 1Milliliter 05/25/2016 No longer Active cyanocobalamin (vit B-12) 1,000 mcg/mL injection solution RxNorm: 263746 Milliliter 05/10/2016 No longer Active cyanocobalamin (vit B-12) 1,000 mcg/mL injection solution RxNorm: 564243 Milliliter 04/26/2016 No longer Active cyanocobalamin (vit B-12) 1,000 mcg/mL injection solution RxNorm: 975037 Milliliter 04/11/2016 No longer Active cyanocobalamin (vit B-12) 1,000 mcg/mL injection solution RxNorm: 764831 Milliliter 03/31/2016 No longer Active cyanocobalamin (vit B-12) 1,000 mcg/mL injection solution RxNorm: 306621 1Milliliter 03/15/2016 No longer Active cyanocobalamin (vit B-12) 1,000 mcg/mL injection solution RxNorm: 724537 Milliliter 02/25/2016 No longer Active cyanocobalamin (vit B-12) 1,000 mcg/mL injection solution RxNorm: 063751 1Milliliter 02/02/2016 No longer Active cyanocobalamin (vit B-12) 1,000 mcg/mL injection solution RxNorm: 430643 Milliliter 01/18/2016 No longer Active cyanocobalamin (vit B-12) 1,000 mcg/mL injection solution RxNorm: 323875 Milliliter 12/29/2015 No longer Active cyanocobalamin (vit B-12) 1,000 mcg/mL injection solution RxNorm: 177541 Milliliter 12/08/2015 No longer Active cyanocobalamin (vit B-12) 1,000 mcg/mL injection solution RxNorm: 627508 Milliliter 11/23/2015 No longer Active cyanocobalamin (vit B-12) 1,000 mcg/mL injection solution RxNorm: 149533 Milliliter 11/11/2015 No longer Active cyanocobalamin (vit B-12) 1,000 mcg/mL injection solution RxNorm: 966226 1Milliliter 10/29/2015 No longer Active cyanocobalamin (vit B-12) 1,000 mcg/mL injection solution RxNorm: 827783 1Milliliter 10/12/2015 No longer Active cyanocobalamin (vit B-12) 1,000 mcg/mL injection solution RxNorm: 626331 1Milliliter 09/29/2015 No longer Active cyanocobalamin (vit B-12) 1,000 mcg/mL injection solution RxNorm: 112030 1Milliliter 09/17/2015 No longer Active cyanocobalamin (vit B-12) 1,000 mcg/mL injection solution RxNorm: 240283 1Milliliter 09/03/2015 No longer Active cyanocobalamin (vit B-12) 1,000 mcg/mL injection solution RxNorm: 562836 Milliliter 08/17/2015 No longer Active cyanocobalamin (vit B-12) 1,000 mcg/mL injection solution RxNorm: 714965 Milliliter 08/06/2015 No longer Active cyanocobalamin (vit B-12) 1,000 mcg/mL injection solution RxNorm: 963801 Milliliter 07/22/2015 No longer Active cyanocobalamin (vit B-12) 1,000 mcg/mL injection solution RxNorm: 422254 Milliliter 07/08/2015 No longer Active cyanocobalamin (vit B-12) 1,000 mcg/mL injection solution RxNorm: 123708 Milliliter 06/23/2015 No longer Active cyanocobalamin (vit B-12) 1,000 mcg/mL injection solution RxNorm: 249011 1Milliliter 06/08/2015 No longer Active cyanocobalamin (vit B-12) 1,000 mcg/mL injection solution RxNorm: 170996 Milliliter 05/27/2015 No longer Active cyanocobalamin (vit B-12) 1,000 mcg/mL injection solution RxNorm: 429183 1Milliliter 05/12/2015 No longer Active cyanocobalamin (vit B-12) 1,000 mcg/mL injection kit RxNorm: 758557 kit 04/30/2015 No longer Active cyanocobalamin (vit B-12) 1,000 mcg/mL injection solution RxNorm: 293729 Milliliter 04/16/2015 No longer Active cyanocobalamin (vit B-12) 1,000 mcg/mL injection solution RxNorm: 622319 Milliliter 04/02/2015 No longer Active cyanocobalamin (vit B-12) 1,000 mcg/mL injection solution RxNorm: 387099 Milliliter 03/18/2015 No longer Active cyanocobalamin (vit B-12) 1,000 mcg/mL injection solution RxNorm: 720546 Milliliter 03/03/2015 No longer Active cyanocobalamin (vit B-12) 1,000 mcg/mL injection solution RxNorm: 983175 Milliliter 02/18/2015 No longer Active cyanocobalamin (vit B-12) 1,000 mcg/mL injection solution RxNorm: 556066 Milliliter 02/04/2015 No longer Active cyanocobalamin (vit B-12) 1,000 mcg/mL injection solution RxNorm: 921746 Milliliter 01/22/2015 No longer Active cyanocobalamin (vit B-12) 1,000 mcg/mL injection solution RxNorm: 999569 Milliliter 01/08/2015 No longer Active cyanocobalamin (vit B-12) 1,000 mcg/mL injection solution RxNorm: 124904 Milliliter 12/25/2014 No longer Active cyanocobalamin (vit B-12) 1,000 mcg/mL injection solution RxNorm: 311155 Milliliter 12/10/2014 No longer Active cyanocobalamin (vit B-12) 1,000 mcg/mL injection solution RxNorm: 701553 Milliliter 11/26/2014 No longer Active cyanocobalamin (vit B-12) 1,000 mcg/mL injection kit RxNorm: 952824 Milliliter 11/12/2014 No longer Active cyanocobalamin (vit B-12) 1,000 mcg/mL injection solution RxNorm: 366926 Milliliter 10/28/2014 No longer Active Immunizations Vaccine [...] 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 ICD-9: 281.1 09/27/2018 Essential (primary) hypertension ICD-10: I10 ICD-9: 401.9 09/05/2018 Atrophy of thyroid (acquired) ICD-10: E03.4 ICD-9: 244.8 09/05/2018 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 ICD-9: 266.2 09/05/2018 Type 2 diabetes mellitus without complications ICD-10: E11.9 ICD-9: 250.00 09/05/2018 Acute bronchitis due to other specified organisms ICD-10: J20.8 ICD-9: 466.0 08/15/2018 Cough ICD-10: R05 ICD-9: 786.2 08/15/2018 Encounter for immunization ICD-10: Z23 ICD-9: V03.82 03/16/2018 Pain in left shoulder ICD-10: M25.512 ICD-9: 719.41 02/26/2018 Pain in right shoulder ICD-10: M25.511 ICD-9: 719.41 02/26/2018 Nausea ICD-10: R11.0 ICD-9: 787.02 12/12/2017 Acute bronchitis due to Hemophilus influenzae ICD-10: J20.1 ICD-9: 466.0 12/04/2017 Chronic atrial fibrillation ICD-10: I48.2 ICD-9: 427.31 11/20/2017 Acute upper respiratory infection, unspecified ICD-10: [...] Visit Reason For Visit Effective Dates Notes hypertension 09/05/2018 cough 08/15/2018 cough 05/03/2018 She [...] Code Item Item Code Result Date Microalbumin Zpc479 MicroAlb <0.7 mg/dL 09/11/2018 Tsh Ord6 TSH (3rd IS) 6.48 uIU/mL 09/10/2018 Free T4 Xzo499 FREE T4 0.89 ng/dL 09/10/2018 Lipid Ord30 CHOL 177 mg/dL 09/10/2018 Lipid Ord30 HDL 64.0 mg/dl 09/10/2018 Lipid Ord30 TRIG 126 mg/dL 09/10/2018 Lipid Ord30 LDL 88 mg/dL 09/10/2018 Lipid Ord30 C/HDL 2.8 Ratio 09/10/2018 Comp Metabolic Nnw551 NA 139 mEq/L 09/10/2018 Comp Metabolic And542 K 4.8 mEq/L 09/10/2018 Comp Metabolic Oav856 CL 103 mEq/L 09/10/2018 Comp Metabolic Emk599 CO2 25.0 mEq/L 09/10/2018 Comp Metabolic One778 ANION GAP 16 09/10/2018 Comp Metabolic Xjz178 GLUCOSE 104 mg/dL 09/10/2018 Comp Metabolic Fna526 Creat 1.0 mg/dL 09/10/2018 Comp Metabolic Cqs566 eGFR 54 ml/min/1.73m2 09/10/2018 Comp Metabolic Seh643 BUN 25 mg/dL 09/10/2018 Comp Metabolic Owa863 B/C Ratio 24.3 Ratio 09/10/2018 Comp Metabolic Mzu364 CALCIUM 9.3 mg/dL 09/10/2018 Comp Metabolic Vje820 ALK PHOS 71 U/L 09/10/2018 Comp Metabolic Ttq074 AST(SGOT) 25 U/L 09/10/2018 Comp Metabolic Tgb463 ALT(SGPT) 28 U/L 09/10/2018 Comp Metabolic Jln090 BILI T 0.7 mg/dL 09/10/2018 Comp Metabolic Krd951 ALBUMIN 4.2 g/dL 09/10/2018 Comp Metabolic Zdr278 TPRO 6.5 g/dL 09/10/2018 Comp Metabolic Vof090 GLOB 2.3 g/dL 09/10/2018 Comp Metabolic Dsc760 A/G Ratio 1.8 Ratio 09/10/2018 Comp Metabolic Ywv825 Osmo 282 mOsmo 09/10/2018 Cbc With Differential [...] 27.7 pg 09/10/2018 Cbc With Differential Ord2 [place]% 8.8 % 09/10/2018 Cbc With Differential Ord2 [...] 2.24 K/ul 09/10/2018 Cbc With Differential Ord2 [place] ABS# 0.6 K/ul 09/10/2018 Cbc With Differential Ord2 Eos ABS# 0.2 K/ul 09/10/2018 Cbc With Differential Ord2 Baso ABS# 0.1 K/ul 09/10/2018 %Hba1C Hli635 % HbA1c 04998- 6 6.0 % 09/10/2018 %Hba1C Waf160 Gluc Ave 126 mg/dL 09/10/2018 Test(s) Not Perfromed [id number] Test(s) Not Performed Test(s) Not Performed. See Below: 09/10/2018 Test(s) Not Perfromed [id number] TEST NAME Microalbumin 09/10/2018 Test(s) Not Perfromed [id number] Rejection Reason Patient Unable to Void 09/10/2018 Test(s) Not Perfromed [id number] COMMENT Patient to deliver sample to the lab at a later date 09/10/2018 Test(s) Not Perfromed [id number] [employer] Favio Mulligan 09/10/2018 Lipid Ord30 CHOL 174 mg/dL 05/29/2018 Lipid Ord30 HDL 49.0 mg/dl 05/29/2018 Lipid Ord30 TRIG 200 mg/dL 05/29/2018 Lipid Ord30 LDL 85 mg/dL 05/29/2018 Lipid Ord30 C/HDL 3.6 Ratio 05/29/2018 Tsh Ord6 TSH (3rd IS) 3.20 uIU/mL 02/26/2018 Free T4 Zkf910 FREE T4 0.99 ng/dL 02/26/2018 Cbc With [...] 28.5 pg 02/26/2018 Cbc With Differential Ord2 [place]% 10.3 % 02/26/2018 Cbc With Differential Ord2 [...] 1.80 K/ul 02/26/2018 Cbc With Differential Ord2 [place] ABS# 0.7 K/ul 02/26/2018 Cbc With Differential Ord2 Eos ABS# 0.2 K/ul 02/26/2018 Cbc With Differential Ord2 Baso ABS# 0.0 K/ul 02/26/2018 B12 Lvu575 B12 889.00 pg/ml 02/26/2018 Digoxin Ord9 DIGOXIN 0.7 NG/ML 11/23/2017 Comp Metabolic Wyb572 NA 142 mEq/L 11/23/2017 Comp Metabolic Rjw334 K 4.9 mEq/L 11/23/2017 Comp Metabolic Svq514 CL 112 mEq/L 11/23/2017 Comp Metabolic Mje627 CO2 18.0 mEq/L 11/23/2017 Comp Metabolic Bvc121 ANION GAP 17 11/23/2017 Comp Metabolic Qem087 GLUCOSE 123 mg/dL 11/23/2017 Comp Metabolic Kds292 Creat 1.0 mg/dL 11/23/2017 Comp Metabolic Lmc533 eGFR 59 ml/min/1.73m2 11/23/2017 Comp Metabolic Cwp683 BUN 24 mg/dL 11/23/2017 Comp Metabolic Uzm222 B/C Ratio 25.0 Ratio 11/23/2017 Comp Metabolic Dth483 CALCIUM 9.4 mg/dL 11/23/2017 Comp Metabolic Nrr579 ALK PHOS 56 U/L 11/23/2017 Comp Metabolic Guv535 AST(SGOT) 17 U/L 11/23/2017 Comp Metabolic Alg820 ALT(SGPT) 16 U/L 11/23/2017 Comp Metabolic Gym272 BILI T 0.7 mg/dL 11/23/2017 Comp Metabolic Sdj967 ALBUMIN 3.8 g/dL 11/23/2017 Comp Metabolic Fsu343 TPRO 6.2 g/dL 11/23/2017 Comp Metabolic Mzl811 GLOB 2.4 g/dL 11/23/2017 Comp Metabolic Ovk157 A/G Ratio 1.6 Ratio 11/23/2017 Comp Metabolic Fnl502 Osmo 289 mOsmo 11/23/2017 Free T4 Eiq842 FREE T4 1.04 ng/dL 11/23/2017 %Hba1C Smu223 % HbA1c 07529- 6 6.4 % 11/23/2017 %Hba1C Esx019 Gluc Ave 137 mg/dL 11/23/2017 Lipid Ord30 CHOL 179 mg/dL 11/23/2017 Lipid Ord30 HDL 51.0 mg/dl 11/23/2017 Lipid Ord30 TRIG 134 mg/dL 11/23/2017 Lipid Ord30 LDL 101 mg/dL 11/23/2017 Lipid Ord30 C/HDL 3.5 Ratio 11/23/2017 Tsh Ord6 TSH (3rd IS) 1.00 uIU/mL 11/23/2017 Microalbumin Son001 MicroAlb <0.7 mg/dL 11/23/2017 Comp Metabolic Fux997 NA 141 mEq/L 01/23/2017 Comp Metabolic Srs799 K 4.5 mEq/L 01/23/2017 Comp Metabolic Tpq991 CL 107 mEq/L 01/23/2017 Comp Metabolic Dmg102 CO2 21.0 mEq/L 01/23/2017 Comp Metabolic Clr075 ANION GAP 18 01/23/2017 Comp Metabolic Bbs406 GLUCOSE 138 mg/dL 01/23/2017 Comp Metabolic Fox243 Creat 1.0 mg/dL 01/23/2017 Comp Metabolic Amd620 eGFR 56 ml/min/1.73m2 01/23/2017 Comp Metabolic Gdj313 BUN 26 mg/dL 01/23/2017 Comp Metabolic Paz047 B/C Ratio 25.7 Ratio 01/23/2017 Comp Metabolic Kce890 CALCIUM 9.0 mg/dL 01/23/2017 Comp Metabolic Igd578 ALK PHOS 37 U/L 01/23/2017 Comp Metabolic Xkk946 AST(SGOT) 20 U/L 01/23/2017 Comp Metabolic Esa592 ALT(SGPT) 25 U/L 01/23/2017 Comp Metabolic Eyd559 BILI T 0.9 mg/dL 01/23/2017 Comp Metabolic Efw804 ALBUMIN 3.8 g/dL 01/23/2017 Comp Metabolic Drf734 TPRO 6.5 g/dL 01/23/2017 Comp Metabolic Qaw774 GLOB 2.7 g/dL 01/23/2017 Comp Metabolic Lac986 A/G Ratio 1.4 Ratio 01/23/2017 Comp Metabolic Tso240 Osmo 288 mOsmo 01/23/2017 Free T4 Voj133 FREE T4 1.05 ng/dL 01/23/2017 %Hba1C Tmz362 % HbA1c 50114- 6 6.1 % 01/23/2017 %Hba1C Mje661 Gluc Ave 128 mg/dL 01/23/2017 Tsh Ord6 hTSH II 1.68 uIU/mL 01/23/2017 Culture Urine [id number] URINE CULTURE SEE NOTES 11/10/2016 Culture Urine [id number] Continued Results 11/10/2016 Urine Culture Ucult Complete [...] Ord15 CALCIUM 9.3 mg/dL 09/29/2016 Free T4 Qyk208 FREE T4 0.99 ng/dL 09/07/2016 Cbc With [...] 30.0 pg 09/07/2016 Cbc With Differential Ord2 [place]% 9.8 % 09/07/2016 Cbc With Differential Ord2 [...] 1.75 K/ul 09/07/2016 Cbc With Differential Ord2 [place] ABS# 0.6 K/ul 09/07/2016 Cbc With Differential Ord2 Eos ABS# 0.1 K/ul 09/07/2016 Cbc With Differential Ord2 Baso ABS# 0.0 K/ul 09/07/2016 Tsh Ord6 hTSH II 1.41 uIU/mL 09/07/2016 Culture Urine [id number] URINE CULTURE SEE NOTES 06/27/2016 Lipid Ord30 CHOL 196 mg/dL 06/22/2016 Lipid Ord30 HDL 63.0 mg/dl 06/22/2016 Lipid Ord30 TRIG 154 mg/dL 06/22/2016 Lipid Ord30 LDL 102 mg/dL 06/22/2016 Lipid Ord30 C/HDL 3.1 Ratio 06/22/2016 Hepatic Tdm003 ALBUMIN 4.2 g/dL 06/22/2016 Hepatic Lvb679 TPRO 7.0 g/dL 06/22/2016 Hepatic Rky762 GLOB 2.8 g/dL 06/22/2016 Hepatic Ijg099 A/G Ratio 1.5 Ratio 06/22/2016 Hepatic Yde001 ALK PHOS 54 U/L 06/22/2016 Hepatic Jxq900 ALT(SGPT) 30 U/L 06/22/2016 Hepatic Ogt505 AST(SGOT) 24 U/L 06/22/2016 Hepatic Cfl720 BILI T 1.1 mg/dL 06/22/2016 Hepatic Uau214 BILI D 0.2 mg/dL 06/22/2016 Hepatic Cxd042 BILI I 0.9 mg/dL 06/22/2016 Comp Metabolic Hke436 NA 139 mEq/L 06/14/2016 Comp Metabolic Num857 K 4.6 mEq/L 06/14/2016 Comp Metabolic Ttv486 CL 108 mEq/L 06/14/2016 Comp Metabolic Dvt867 CO2 22.0 mEq/L 06/14/2016 Comp Metabolic Xkm301 ANION GAP 14 06/14/2016 Comp Metabolic Tyj456 GLUCOSE 114 mg/dL 06/14/2016 Comp Metabolic Fbl602 Creat 1.2 mg/dL 06/14/2016 Comp Metabolic Pjw225 eGFR 48 ml/min/1.73m2 06/14/2016 Comp Metabolic Jmt069 BUN 24 mg/dL 06/14/2016 Comp Metabolic Tlb954 B/C Ratio 20.9 Ratio 06/14/2016 Comp Metabolic Gic180 CALCIUM 9.9 mg/dL 06/14/2016 Comp Metabolic Vpw517 ALK PHOS 47 U/L 06/14/2016 Comp Metabolic Ajj437 AST(SGOT) 28 U/L 06/14/2016 Comp Metabolic Ery976 ALT(SGPT) 32 U/L 06/14/2016 Comp Metabolic Fgj397 BILI T 0.9 mg/dL 06/14/2016 Comp Metabolic Yyy479 ALBUMIN 4.1 g/dL 06/14/2016 Comp Metabolic Anh451 TPRO 6.9 g/dL 06/14/2016 Comp Metabolic Taa721 GLOB 2.8 g/dL 06/14/2016 Comp Metabolic Ddi444 A/G Ratio 1.5 Ratio 06/14/2016 Comp Metabolic Coo103 Osmo 282 mOsmo 06/14/2016 Tsh Ord6 hTSH II 1.26 uIU/mL 06/14/2016 Free T4 Jln257 FREE T4 1.09 ng/dL 06/14/2016 Tsh Ord6 hTSH II 0.28 uIU/mL 02/02/2016 Digoxin Ord9 DIGOXIN 0.7 NG/ML 02/02/2016 Free T4 Ela013 FREE T4 1.23 ng/dL 02/02/2016 Hepatic Tvm464 ALBUMIN 4.0 g/dL 02/02/2016 Hepatic Qbm047 TPRO 7.0 g/dL 02/02/2016 Hepatic Sun934 GLOB 3.0 g/dL 02/02/2016 Hepatic Yrl756 A/G Ratio 1.3 Ratio 02/02/2016 Hepatic Ltp231 ALK PHOS 57 U/L 02/02/2016 Hepatic Acj129 ALT(SGPT) 62 U/L 02/02/2016 Hepatic Yhh158 AST(SGOT) 54 U/L 02/02/2016 Hepatic Pms902 BILI T 0.8 mg/dL 02/02/2016 Hepatic Dxm800 BILI D 0.2 mg/dL 02/02/2016 Hepatic Joe771 BILI I 0.6 mg/dL 02/02/2016 Urine Culture Ucult Preliminary No Growth Day 1 11/25/2015 Urine Culture Ucult Complete No Growth Day 2 11/25/2015 Hepatic Cnn068 ALBUMIN 3.9 g/dL 11/11/2015 Hepatic Ver999 TPRO 7.0 g/dL 11/11/2015 Hepatic Upg301 GLOB 3.1 g/dL 11/11/2015 Hepatic Ixn935 A/G Ratio 1.3 Ratio 11/11/2015 Hepatic Poe964 ALK PHOS 63 U/L 11/11/2015 Hepatic Prr200 ALT(SGPT) 107 U/L 11/11/2015 Hepatic Ghe045 AST(SGOT) 101 U/L 11/11/2015 Hepatic Svv574 BILI T 0.6 mg/dL 11/11/2015 Hepatic Ixk694 BILI D 0.1 mg/dL 11/11/2015 Hepatic Jis424 BILI I 0.5 mg/dL 11/11/2015 Comp Metabolic Bxd413 NA 138 mEq/L 10/29/2015 Comp Metabolic Ngg666 K 5.0 mEq/L 10/29/2015 Comp Metabolic Lri131 CL 105 mEq/L 10/29/2015 Comp Metabolic Caf160 CO2 23.0 mEq/L 10/29/2015 Comp Metabolic Crx470 ANION GAP 15 10/29/2015 Comp Metabolic Byg762 GLUCOSE 105 mg/dL 10/29/2015 Comp Metabolic Fwr001 Creat 1.0 mg/dL 10/29/2015 Comp Metabolic Akc920 eGFR 55 ml/min/1.73m2 10/29/2015 Comp Metabolic Scd239 BUN 20 mg/dL 10/29/2015 Comp Metabolic Pnz294 B/C Ratio 19.4 Ratio 10/29/2015 Comp Metabolic Afx110 CALCIUM 8.8 mg/dL 10/29/2015 Comp Metabolic Kdv065 ALK PHOS 56 U/L 10/29/2015 Comp Metabolic Yli372 AST(SGOT) 66 U/L 10/29/2015 Comp Metabolic Mny852 ALT(SGPT) 78 U/L 10/29/2015 Comp Metabolic Yol998 BILI T 0.7 mg/dL 10/29/2015 Comp Metabolic Oso715 ALBUMIN 3.6 g/dL 10/29/2015 Comp Metabolic Nal131 TPRO 6.6 g/dL 10/29/2015 Comp Metabolic Otd010 GLOB 3.0 g/dL 10/29/2015 Comp Metabolic Cou267 A/G Ratio 1.2 Ratio 10/29/2015 Comp Metabolic Dxg264 Osmo 279 mOsmo 10/29/2015 Comp Metabolic Btm311 NA 136 mEq/L 09/03/2015 Comp Metabolic Xie319 K 4.4 mEq/L 09/03/2015 Comp Metabolic Hpu805 CL 103 mEq/L 09/03/2015 Comp Metabolic Wfc455 CO2 24.0 mEq/L 09/03/2015 Comp Metabolic Piq188 ANION GAP 13 09/03/2015 Comp Metabolic Cku991 GLUCOSE 87 mg/dL 09/03/2015 Comp Metabolic Pcp290 Creat 1.1 mg/dL 09/03/2015 Comp Metabolic Jzp194 eGFR 53 ml/min/1.73m2 09/03/2015 Comp Metabolic Owk134 BUN 17 mg/dL 09/03/2015 Comp Metabolic Nqh499 B/C Ratio 16.2 Ratio 09/03/2015 Comp Metabolic Gto416 CALCIUM 9.0 mg/dL 09/03/2015 Comp Metabolic Bik390 ALK PHOS 55 U/L 09/03/2015 Comp Metabolic Tjo150 AST(SGOT) 83 U/L 09/03/2015 Comp Metabolic Nkd116 ALT(SGPT) 126 U/L 09/03/2015 Comp Metabolic Skt669 BILI T 0.9 mg/dL 09/03/2015 Comp Metabolic Rlk859 ALBUMIN 3.9 g/dL 09/03/2015 Comp Metabolic Zyw142 TPRO 6.8 g/dL 09/03/2015 Comp Metabolic Sio819 GLOB 2.9 g/dL 09/03/2015 Comp Metabolic Ahx056 A/G Ratio 1.4 Ratio 09/03/2015 Comp Metabolic Rbn273 Osmo 273 mOsmo 09/03/2015 Total T3 Ord42 TT3 0.6 ng/ml 07/09/2015 Tsh Ord6 hTSH II 1.62 uIU/mL 07/09/2015 Total T3 Ord42 TT3 0.5 ng/ml 04/02/2015 Free T4 Vyq315 FREE T4 1.23 ng/dL 04/02/2015 Tsh Ord6 hTSH II 5.95 uIU/mL 04/02/2015 Review of Systems System Result Effective Dates Constitutional No recent illness 09/05/2018 Constitutional No [...] lips 08/15/2018 None Full Exam - General 1995 [...] Procedure Codes Date THER/PROPH/DIAG INJ SC/IM CPT-4: 10543 10/23/2018 THER/PROPH/DIAG INJ SC/IM CPT-4: 21794 10/10/2018 THER/PROPH/DIAG INJ SC/IM CPT-4: 58529 09/27/2018 THER/PROPH/DIAG INJ SC/IM CPT-4: 64066 09/11/2018 THER/PROPH/DIAG INJ SC/IM CPT-4: 28384 08/29/2018 THER/PROPH/DIAG INJ SC/IM CPT-4: 91786 08/15/2018 TRIAMCINOLONE ACET INJ NOS CPT-4: J3301 08/15/2018 THER/PROPH/DIAG INJ SC/IM CPT-4: 74492 08/01/2018 VITAMIN B12 INJECTION CPT- 4: J3420 08/01/2018 THER/PROPH/DIAG INJ SC/IM CPT-4: 36494 07/19/2018 THER/PROPH/DIAG INJ SC/IM CPT-4: 72031 07/04/2018 THER/PROPH/DIAG INJ SC/IM CPT-4: 25455 06/20/2018 THER/PROPH/DIAG INJ SC/IM CPT-4: 18194 06/06/2018 VITAMIN B12 INJECTION CPT- 4: J3420 06/06/2018 THER/PROPH/DIAG INJ SC/IM CPT-4: 34639 05/24/2018 THER/PROPH/DIAG INJ SC/IM CPT-4: 72511 05/09/2018 THER/PROPH/DIAG INJ SC/IM CPT-4: 88752 04/26/2018 VITAMIN B12 INJECTION CPT- 4: J3420 04/26/2018 THER/PROPH/DIAG INJ SC/IM CPT-4: 71053 04/12/2018 THER/PROPH/DIAG INJ SC/IM CPT-4: 61936 03/30/2018 THER/PROPH/DIAG INJ SC/IM CPT-4: 70378 03/16/2018 VITAMIN B12 INJECTION CPT- 4: J3420 03/16/2018 ADMIN INFLUENZA VIRUS VAC CPT-4: G0008 03/16/2018 FLU VACC PRSV FREE INC ANTIG Formatting Model/CDA Sections, Assigned to/Nga Ojeda CPT-4: 74576Psgtuoz 03/16/2018 THER/PROPH/DIAG INJ SC/IM CPT-4: 10986 03/02/2018 THER/PROPH/DIAG INJ SC/IM CPT-4: 01925 02/08/2018 THER/PROPH/DIAG INJ SC/IM CPT-4: 99042 01/24/2018 THER/PROPH/DIAG INJ SC/IM CPT-4: 46172 01/10/2018 THER/PROPH/DIAG INJ SC/IM CPT-4: 36589 12/27/2017 VITAMIN B12 INJECTION CPT- 4: J3420 12/27/2017 THER/PROPH/DIAG INJ SC/IM CPT-4: 03687 12/12/2017 THER/PROPH/DIAG INJ SC/IM CPT-4: 01756 12/01/2017 VITAMIN B12 INJECTION CPT- 4: J3420 12/01/2017 THER/PROPH/DIAG INJ SC/IM CPT-4: 34630 11/17/2017 THER/PROPH/DIAG INJ SC/IM CPT-4: 52082 11/02/2017 THER/PROPH/DIAG INJ SC/IM CPT-4: 92506 10/20/2017 THER/PROPH/DIAG INJ SC/IM CPT-4: 43663 10/06/2017 THER/PROPH/DIAG INJ SC/IM CPT-4: 37088 09/21/2017 TRIAMCINOLONE ACET INJ NOS CPT-4: J3301 09/15/2017 THER/PROPH/DIAG INJ SC/IM CPT-4: 25498 09/07/2017 THER/PROPH/DIAG INJ SC/IM CPT-4: 61829 08/24/2017 THER/PROPH/DIAG INJ SC/IM CPT-4: 47048 07/06/2017 THER/PROPH/DIAG INJ SC/IM CPT-4: 39599 06/20/2017 TRIAMCINOLONE ACET INJ NOS CPT-4: J3301 06/20/2017 PPPS, SUBSEQ VISIT CPT- 4: G0439 06/05/2017 THER/PROPH/DIAG INJ SC/IM CPT-4: 25706 06/05/2017 THER/PROPH/DIAG INJ SC/IM CPT-4: 72965 05/25/2017 VITAMIN B12 INJECTION CPT- 4: J3420 05/25/2017 THER/PROPH/DIAG INJ SC/IM CPT-4: 17195 05/16/2017 THER/PROPH/DIAG INJ SC/IM CPT-4: 79011 05/01/2017 THER/PROPH/DIAG INJ SC/IM CPT-4: 88155 04/18/2017 THER/PROPH/DIAG INJ SC/IM CPT-4: 83196 04/06/2017 ADMIN INFLUENZA VIRUS VAC CPT-4: G0008 03/22/2017 FLU VACC PRSV FREE INC ANTIG CPT-4: 11417 03/22/2017 THER/PROPH/DIAG INJ SC/IM CPT-4: 76046 03/09/2017 THER/PROPH/DIAG INJ SC/IM CPT-4: 90118 02/23/2017 THER/PROPH/DIAG INJ SC/IM CPT-4: 32858 02/09/2017 THER/PROPH/DIAG INJ SC/IM CPT-4: 88357 01/23/2017 THER/PROPH/DIAG INJ SC/IM CPT-4: 29222 01/10/2017 THER/PROPH/DIAG INJ SC/IM CPT-4: 42234 12/28/2016 THER/PROPH/DIAG INJ SC/IM CPT-4: 21123 12/14/2016 THER/PROPH/DIAG INJ SC/IM CPT-4: 16816 11/24/2016 URINALYSIS NONAUTO W/O SCOPE CPT-4: 52528 11/07/2016 THER/PROPH/DIAG INJ SC/IM CPT-4: 83437 11/07/2016 THER/PROPH/DIAG INJ SC/IM CPT-4: 09482 10/24/2016 THER/PROPH/DIAG INJ SC/IM CPT-4: 89172 09/29/2016 THER/PROPH/DIAG INJ SC/IM CPT-4: 94063 08/29/2016 THER/PROPH/DIAG INJ SC/IM CPT-4: 91855 08/04/2016 THER/PROPH/DIAG INJ SC/IM CPT-4: 38144 07/21/2016 THER/PROPH/DIAG INJ SC/IM CPT-4: 28745 07/05/2016 THER/PROPH/DIAG INJ SC/IM CPT-4: 55652 06/22/2016 URINALYSIS NONAUTO W/O SCOPE CPT-4: 49444 06/22/2016 THER/PROPH/DIAG INJ SC/IM CPT-4: 34007 06/09/2016 PPPS, SUBSEQ VISIT CPT- 4: G0439 05/30/2016 ADMIN PNEUMOCOCCAL VACCINE SNOMED CT: 84217010 CPT-4: G0009 05/25/2016 Pneumococcal Polysaccharide Vaccine, 23-Valent, Ad CPT-4: 58108 05/25/2016 THER/PROPH/DIAG INJ SC/IM CPT-4: 53431 05/25/2016 THER/PROPH/DIAG INJ SC/IM CPT-4: 00581 05/10/2016 TRIAMCINOLONE ACET INJ NOS CPT-4: J3301 04/26/2016 VITAMIN B12 INJECTION CPT- 4: J3420 04/26/2016 THER/PROPH/DIAG INJ SC/IM CPT-4: 21050 04/11/2016 THER/PROPH/DIAG INJ SC/IM CPT-4: 59108 03/31/2016 ADMIN INFLUENZA VIRUS VAC CPT-4: G0008 03/15/2016 FLU VACC 4 STEPHANIE 3 YRS PLUS IM SNOMED CT: 46248981 CPT-4: 84073 03/15/2016 THER/PROPH/DIAG INJ SC/IM CPT-4: 81074 02/25/2016 THER/PROPH/DIAG INJ SC/IM CPT-4: 41778 02/02/2016 THER/PROPH/DIAG INJ SC/IM CPT-4: 62058 01/18/2016 VITAMIN B12 INJECTION CPT- 4: J3420 12/29/2015 THER/PROPH/DIAG INJ SC/IM CPT-4: 44680 12/29/2015 THER/PROPH/DIAG INJ SC/IM CPT-4: 68495 12/08/2015 THER/PROPH/DIAG INJ SC/IM CPT-4: 10972 11/23/2015 URINALYSIS NONAUTO W/O SCOPE CPT-4: 54169 11/23/2015 THER/PROPH/DIAG INJ SC/IM CPT-4: 20406 11/11/2015 THER/PROPH/DIAG INJ SC/IM CPT-4: 29971 10/29/2015 THER/PROPH/DIAG INJ SC/IM CPT-4: 25377 10/12/2015 VITAMIN B12 INJECTION CPT- 4: J3420 10/12/2015 THER/PROPH/DIAG INJ SC/IM CPT-4: 09873 09/29/2015 THER/PROPH/DIAG INJ SC/IM CPT-4: 03739 09/17/2015 THER/PROPH/DIAG INJ SC/IM CPT-4: 54107 09/03/2015 THER/PROPH/DIAG INJ SC/IM CPT-4: 67110 08/17/2015 THER/PROPH/DIAG INJ SC/IM CPT-4: 13020 08/06/2015 THER/PROPH/DIAG INJ SC/IM CPT-4: 45440 07/22/2015 THER/PROPH/DIAG INJ SC/IM CPT-4: 22104 07/08/2015 THER/PROPH/DIAG INJ SC/IM CPT-4: 33202 06/23/2015 THER/PROPH/DIAG INJ SC/IM CPT-4: 41541 06/08/2015 THER/PROPH/DIAG INJ SC/IM CPT-4: 35189 05/27/2015 DESTRUCT PREMALG LESION CPT-4: 13915 05/19/2015 DESTRUCT PREMALG LES 2-14 CPT-4: 47211 05/19/2015 THER/PROPH/DIAG INJ SC/IM CPT-4: 19141 05/12/2015 VITAMIN B12 INJECTION CPT- 4: J3420 05/12/2015 THER/PROPH/DIAG INJ SC/IM CPT-4: 65950 04/30/2015 VITAMIN B12 INJECTION CPT- 4: J3420 04/30/2015 THER/PROPH/DIAG INJ SC/IM CPT-4: 57408 04/16/2015 THER/PROPH/DIAG INJ SC/IM CPT-4: 96441 04/02/2015 VITAMIN B12 INJECTION CPT- 4: J3420 04/02/2015 THER/PROPH/DIAG INJ SC/IM CPT-4: 23407 03/18/2015 THER/PROPH/DIAG INJ SC/IM CPT-4: 79370 03/03/2015 THER/PROPH/DIAG INJ SC/IM CPT-4: 40636 02/18/2015 THER/PROPH/DIAG INJ SC/IM CPT-4: 99834 02/04/2015 VITAMIN B12 INJECTION CPT- 4: J3420 02/04/2015 THER/PROPH/DIAG INJ SC/IM CPT-4: 18255 01/22/2015 THER/PROPH/DIAG INJ SC/IM CPT-4: 37653 01/08/2015 VITAMIN B12 INJECTION CPT- 4: J3420 01/08/2015 THER/PROPH/DIAG INJ SC/IM CPT-4: 83201 12/25/2014 VITAMIN B12 INJECTION CPT- 4: J3420 12/25/2014 THER/PROPH/DIAG INJ SC/IM CPT-4: 62077 12/10/2014 VITAMIN B12 INJECTION CPT- 4: J3420 12/10/2014 THER/PROPH/DIAG INJ SC/IM CPT-4: 75419 11/26/2014 VITAMIN B12 INJECTION CPT- 4: J3420 11/26/2014 THER/PROPH/DIAG INJ SC/IM CPT-4: 77921 11/12/2014 VITAMIN B12 INJECTION CPT- 4: J3420 11/12/2014 THER/PROPH/DIAG INJ SC/IM CPT-4: 97576 10/28/2014 Vital Signs Date Vital 09/05/2018 Blood Pressure 1: 122/70 Code: 8480-6 BMI: 27.1 Code: 86298-5 Heart Rate 1: 90 bpm Height: 5'6" SpO2: 97% Weight: 168 lbs 08/15/2018 Blood Pressure 1: 142/76 Code: 8480-6 BMI: 27.4 Code: 05249-9 Heart Rate 1: 74 bpm Height: 5'6" SpO2: 95% Temperature: 36.7 (C) / 98.1 (F) Weight: 170 lbs 05/03/2018 Blood Pressure 1: 140/70 Code: 8480-6 BMI: 26.0 Code: 50301-5 Heart Rate 1: 70 bpm Height: 5'6" SpO2: 94% Weight: 161 lbs 04/26/2018 Height: 5'6" 02/26/2018 Blood Pressure 1: 130/72 Code: 8480-6 BMI: 27.9 Code: 39462-7 Heart Rate 1: 72 bpm Height: 5'6" SpO2: 93% Weight: 173 lbs 12/12/2017 Blood Pressure 1: 126/74 Code: 8480-6 BMI: 27.4 Code: 54367-7 Heart Rate 1: 83 bpm Height: 5'6" SpO2: 98% Weight: 170 lbs 12/04/2017 Blood Pressure 1: 104/68 Code: 8480-6 BMI: 28.2 Code: 09616-6 Heart Rate 1: 85 bpm Height: 5'6" SpO2: 95% Weight: 175 lbs 11/20/2017 Blood Pressure 1: 130/68 Code: 8480-6 BMI: 28.4 Code: 54212-4 Heart Rate 1: 80 bpm Height: 5'6" SpO2: 99% Weight: 176 lbs 11/02/2017 Height: 5'6" 09/15/2017 Blood Pressure 1: 134/74 Code: 8480-6 BMI: 28.4 Code: 77008-8 Heart Rate 1: 88 bpm Height: 5'6" SpO2: 98% Weight: 176 lbs 09/07/2017 Blood Pressure 1: 12464 Code: 8480-6 Heart Rate 1: 90 bpm Height: SpO2: 97% Weight: 08/30/2017 Blood Pressure 1: 140/76 Code: 8480-6 BMI: 28.4 Code: 96341-0 Heart Rate 1: 90 bpm Height: 5'6" SpO2: 94% Weight: 176 lbs 07/06/2017 Blood Pressure 1: 132/66 Code: 8480-6 BMI: 29.4 Code: 41254-2 Heart Rate 1: 85 bpm Height: 5'6" SpO2: 97% Weight: 182 lbs 06/20/2017 Blood Pressure 1: 134/86 Code: 8480-6 Heart Rate 1: 90 bpm Height: SpO2: 98% Weight: 06/05/2017 BMI: 29.1 Code: 78894-6 Height: 5'6" Weight: 180 lbs 05/25/2017 Blood Pressure 1: 126/76 Code: 8480-6 BMI: 29.1 Code: 81699-7 Heart Rate 1: 77 bpm Height: 5'6" SpO2: 97% Weight: 180 lbs 03/23/2017 Blood Pressure 1: 142/84 Code: 8480-6 BMI: 29.1 Code: 71932-2 Heart Rate 1: 91 bpm Height: 5'6" SpO2: 97% Weight: 180 lbs 01/23/2017 Blood Pressure 1: 150/90 Code: 8480-6 BMI: 29.9 Code: 28492-0 Heart Rate 1: 81 bpm Height: 5'6" SpO2: 97% Weight: 185 lbs 11/02/2016 Blood Pressure 1: 148/78 Code: 8480-6 BMI: 29.7 Code: 18765-1 Heart Rate 1: 87 bpm Height: 5'6" SpO2: 97% Weight: 184 lbs 09/29/2016 Blood Pressure 1: 128/78 Code: 8480-6 BMI: 29.7 Code: 29542-4 Heart Rate 1: 78 bpm Height: 5'6" SpO2: 98% Weight: 184 lbs 07/26/2016 Blood Pressure 1: 138/72 Code: 8480-6 BMI: 30.0 Code: 74741-2 Heart Rate 1: 85 bpm Height: 5'6" SpO2: 97% Weight: 186 lbs 05/30/2016 Blood Pressure 1: 132/76 Code: 8480-6 BMI: 30.0 Code: 56215-4 Heart Rate 1: 80 bpm Height: 5'6" SpO2: 98% Waist Measure (cm): 99 cm Weight: 186 lbs 05/25/2016 Blood Pressure 1: 132/76 Code: 8480-6 BMI: 30.0 Code: 90892-6 Heart Rate 1: 80 bpm Height: 5'6" SpO2: 96% Weight: 186 lbs 02/25/2016 Blood Pressure 1: 110/64 Code: 8480-6 Heart Rate 1: 82 bpm Height: SpO2: 96% Weight: 01/25/2016 Blood Pressure 1: 118/70 Code: 8480-6 BMI: 30.0 Code: 76408-6 Heart Rate 1: 78 bpm Height: 5'6" SpO2: 97% Weight: 186 lbs 11/11/2015 Blood Pressure 1: 128/82 Code: 8480-6 BMI: 29.2 Code: 11885-5 Heart Rate 1: 86 bpm Height: 5'6" SpO2: 96% Temperature: 36.4 (C) / 97.6 (F) Weight: 181 lbs 10/12/2015 Blood Pressure 1: 118/70 Code: 8480-6 BMI: 29.2 Code: 79267-6 Heart Rate 1: 81 bpm Height: 5'6" SpO2: 95% Weight: 181 lbs 09/03/2015 Blood Pressure 1: 138/78 Code: 8480-6 BMI: 29.9 Code: 33198-7 Heart Rate 1: 88 bpm Height: 5'6" SpO2: 97% Weight: 185 lbs 05/19/2015 Blood Pressure 1: 146/78 Code: 8480-6 BMI: 30.0 Code: 62327-7 Heart Rate 1: 66 bpm Height: 5'6" SpO2: 97% Weight: 186 lbs 05/12/2015 Blood Pressure 1: 120/70 Code: 8480-6 BMI: 29.9 Code: 75299-4 Heart Rate 1: 89 bpm Height: 5'6" SpO2: 95% Weight: 185 lbs 01/13/2015 Blood Pressure 1: 140/90 Code: 8480-6 BMI: 30.3 Code: 48784-6 Heart Rate 1: 84 bpm Height: 5'6" SpO2: 95% Weight: 188 lbs 12/16/2014 Blood Pressure 1: 140/82 Code: 8480-6 BMI: 29.5 Code: 52181-7 Heart Rate 1: 86 bpm Height: 5'6" Weight: 183 lbs Functional Status No Functional Status data History of Present Illness Symptom Name Status Result Effective Date Notes Onset and Resolution ongoing 09/05/2018 None Onset [...] Performer Location Codes Date EST. PATIENT, LEVEL IV Diagnosis: Essential (primary) hypertension[ICD10: I10] Diagnosis: Type 2 diabetes mellitus without complications[ICD10: E11.9] Diagnosis: Atrophy of thyroid (acquired)[ICD10: E03.4] Diagnosis: Other vitamin B12 deficiency anemias[ICD10: D51.8] Yarely Vega MD, [facility] CPT-4: 93173 09/05/2018 [id number] EST. PATIENT, LEVEL IV Diagnosis: Acute bronchitis due to other specified organisms[ICD10: J20.8] Diagnosis: Cough[ICD10: R05] Diagnosis: 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 factor deficiency[ICD10: D51.0] Brianna Vega MD, [facility] CPT-4: 61626 08/15/2018 ([id number]) [id number] EST. PATIENT, LEVEL IV Diagnosis: Essential (primary) hypertension[ICD10: I10] Diagnosis: Type 2 diabetes mellitus without complications[ICD10: E11.9] Yarely Vega MD, [facility] CPT-4: 16025 05/03/2018 ([id number]) [id number] EST. PATIENT, LEVEL III Diagnosis: Pain in left shoulder[ICD10: M25.512] Diagnosis: Pain in right shoulder[ICD10: M25.511] Yarely Vega MD, [facility] CPT-4: 47529 02/26/2018 ([id number]) 66266 EST. PATIENT, LEVEL III Diagnosis: Nausea[ICD10: R11.0] Diagnosis: Cough[ICD10: R05] Diagnosis: 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 factor deficiency[ICD10: D51.0] Janet Vega MD, [facility] CPT-4: 45364 12/12/2017 ([id number]) 68745 EST. PATIENT, LEVEL IV Diagnosis: Acute bronchitis due to Hemophilus influenzae[ICD10: J20.1] Diagnosis: Cough[ICD10: R05] Yarely Vega MD, [facility] CPT-4: 95121 12/04/2017 ([id number]) 35934 EST. PATIENT, LEVEL IV Diagnosis: Essential (primary) hypertension[ICD10: I10] Diagnosis: Cough[ICD10: R05] Diagnosis: Chronic atrial fibrillation[ICD10: I48.2] Yarely Vega MD, [facility] CPT-4: 23060 11/20/2017 ([id number]) 68412 EST. PATIENT, LEVEL III Diagnosis: Cough[ICD10: R05] Diagnosis: Acute upper respiratory infection, unspecified[ICD10: J06.9] Janet Vega MD, [facility] CPT-4: 28056 09/15/2017 78174 EST. PATIENT, LEVEL III Diagnosis: Laceration without foreign body of right forearm, initial encounter[ICD10: S51.811A] Diagnosis: Other vitamin B12 deficiency anemias[ICD10: D51.8] Brianna Vega MD, [facility] CPT-4: 10993 09/07/2017 ([id number]) 76642 EST. PATIENT, LEVEL IV Diagnosis: Chronic atrial fibrillation[ICD10: I48.2] Diagnosis: Other allergic rhinitis[ICD10: J30.89] Diagnosis: Encounter for therapeutic drug level monitoring[ICD10: Z51.81] Yarely Vega MD, [facility] CPT-4: 73746 08/30/2017 ([id number]) 27607 EST. 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 PATIENT, LEVEL III Diagnosis: Other vitamin B12 deficiency anemias[ICD10: D51.8] Diagnosis: Acute laryngopharyngitis[ICD10: J06.0] Diagnosis: Other allergic rhinitis[ICD10: J30.89] Brianna Vega MD, [facility] CPT- 4: 47239 06/20/2017 ([id number]) 36907 EST. PATIENT, LEVEL IV Diagnosis: Essential (primary) hypertension[ICD10: I10] Diagnosis: Chronic atrial fibrillation[ICD10: I48.2] Diagnosis: Atrophy of thyroid (acquired)[ICD10: E03.4] Diagnosis: 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 factor deficiency[ICD10: D51.0] Yarely Vega MD, [facility] CPT-4: 70163 05/25/2017 ([id number]) 51456 EST. PATIENT, LEVEL IV Diagnosis: Type 2 diabetes mellitus without complications[ICD10: E11.9] Diagnosis: Atrophy of thyroid (acquired)[ICD10: E03.4] Diagnosis: Chest pain on breathing[ICD10: R07.1] Diagnosis: Chondrocostal junction syndrome [Tietze][ICD10: M94.0] Diagnosis: Other fatigue[ICD10: R53.83] Yarely Vega MD, [facility] CPT-4: 34545 03/23/2017 ([id number]) 48404 EST. PATIENT, LEVEL IV Diagnosis: Type 2 diabetes mellitus without complications[ICD10: E11.9] Diagnosis: Essential (primary) hypertension[ICD10: I10] Diagnosis: Headache[ICD10: R51] Diagnosis: Atrophy of thyroid (acquired)[ICD10: E03.4] Diagnosis: Vitamin B12 deficiency anemia, unspecified[ICD10: D51.9] Yarely Vega MD, [facility] CPT-4: 87905 01/23/2017 49293 EST. PATIENT, LEVEL III Diagnosis: Low back pain[ICD10: M54.5] Diagnosis: Pain in thoracic spine[ICD10: M54.6] Brianna Vega MD, [facility] CPT- 4: 40427 11/02/2016 07415 88029 EST. PATIENT, LEVEL IV Diagnosis: Essential (primary) hypertension[ICD10: I10] Diagnosis: Other vitamin B12 deficiency anemias[ICD10: D51.8] Diagnosis: Generalized abdominal pain[ICD10: R10.84] Yarely Vega MD, [facility] CPT-4: 70401 09/29/2016 ([id number]) 31202 EST. PATIENT, LEVEL IV Diagnosis: Essential (primary) hypertension[ICD10: I10] Yarely Vega MD, [facility] CPT-4: 27646 07/26/2016 ([id number]) 56401 EST. PATIENT, LEVEL IV Diagnosis: Benign lipomatous neoplasm of skin and subcutaneous tissue of right leg[ICD10: D17.23] Diagnosis: Pain in right ankle and joints of right foot[ICD10: M25.571] Diagnosis: Encounter for immunization[ICD10: Z23] Diagnosis: Vitamin B12 deficiency anemia, unspecified[ICD10: D51.9] Yarely Vega MD, [facility] CPT-4: 26769 05/25/2016 48583 EST. PATIENT, LEVEL III Diagnosis: Other chest pain[ICD10: R07.89] Diagnosis: Other vitamin B12 deficiency anemias[ICD10: D51.8] Brianna Vega MD, [facility] CPT-4: 58083 02/25/2016 ([id number]) 42818 EST. 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 PATIENT, LEVEL III Diagnosis: Other vitamin B12 deficiency anemias[ICD10: D51.8] Diagnosis: Acute nasopharyngitis [common cold][ICD10: J00] Diagnosis: Other allergic rhinitis[ICD10: J30.89] Brianna Vega MD, [facility] CPT- 4: 49141 11/11/2015 ([id number]) 38401 EST. PATIENT, LEVEL IV Diagnosis: Essential tremor[ICD10: G25.0] Diagnosis: Chronic fatigue, unspecified[ICD10: R53.82] Diagnosis: Other hypersomnia[ICD10: G47.19] Diagnosis: Essential (primary) hypertension[ICD10: I10] Yarely Vega MD, [facility] CPT-4: 34423 10/12/2015 ([id number]) 76262 EST. PATIENT, LEVEL IV Diagnosis: Essential (primary) hypertension[ICD10: I10] Diagnosis: Chronic atrial fibrillation[ICD10: I48.2] Diagnosis: Abnormal levels of other serum enzymes[ICD10: R74.8] Diagnosis: Type 2 diabetes mellitus without complications[ICD10: E11.9] Diagnosis: Vitamin B12 deficiency anemia, unspecified[ICD10: D51.9] Yarely Vega MD, [facility] CPT-4: 43522 09/03/2015 ([id number]) 17638 EST. PATIENT, LEVEL III Diagnosis: Nausea[ICD10: R11.0] Diagnosis: Essential tremor[ICD10: G25.0] Diagnosis: Actinic keratosis[ICD10: L57.0] Yarely Vega MD, [facility] CPT-4: 50057 05/19/2015 ([id number]) 82656 EST. PATIENT, LEVEL IV Diagnosis: Vitamin B12 deficiency anemia, unspecified[ICD10: D51.9] Diagnosis: Chronic atrial fibrillation[ICD10: I48.2] Diagnosis: Headache[ICD10: R51] Diagnosis: Chronic fatigue, unspecified[ICD10: R53.82] Diagnosis: Cervicalgia[ICD10: M54.2] Yarely Vega MD, [facility] CPT-4: 23740 05/12/2015 ([id number]) 63468 EST. PATIENT, LEVEL IV Diagnosis: ESSENTIAL HYPERTENSION[ICD9: 401.9] Diagnosis: Afib[ICD9: 427.31] Diagnosis: Anxiety[ICD9: 300.00] Diagnosis: Insomnia[ICD9: 780.52] Yarely Vega MD, [facility] CPT-4: 62352 01/13/2015 ([id number]) OFFICE VISIT, NEW - LEVEL 4 Diagnosis: Hypothyroidism[ICD9: 244.9] Diagnosis: DIABETES TYPE II[ICD9: 250.00] Diagnosis: ESSENTIAL HYPERTENSION[ICD9: 401.9] Diagnosis: Afib[ICD9: 427.31] Diagnosis: Anxiety[ICD9: 300.00] Diagnosis: B12 deficiency[ICD9: 266.2] Janet Vega MD, [facility] CPT-4: 32436 12/16/2014 Plan of Care Planned Activity Notes Codes Status Date Patient Education: Patient Medication Summary Completed 10/23/2018 Appointment[phone] (15 min) Moderate 10/22/2018 Appointment: Injection 10/10/2018 Patient Education: Patient Medication Summary Completed 10/10/2018 Appointment: Injection 09/27/2018 Patient Education: Patient Medication Summary Completed 09/27/2018 Appointment: [phone] (15 min) Moderate 09/11/2018 Appointment: Injection 09/11/2018 [...] control. 09/05/2018 Appointment: [phone] (15 min) Moderate 09/05/2018 Patient Education: Patient [...] Summary Completed 06/20/2018 Appointment: [phone] [place] (30 min) Complex 06/07/2018 Appointment: Injection 06/06/2018 Patient Education: Patient Medication Summary Completed 06/06/2018 Appointment: [phone] [place] (15 min) Moderate 05/31/2018 Appointment: Injection [...] flonase 05/03/2018 Appointment: [phone] [place] (15 min) Moderate 05/03/2018 Patient Education: [...] Patient Medication Summary Completed 03/16/2018 Referral: Car Cat Dr. Completed 03/08/2018 Referral: Car Cat with Mateo Maldonado Completed 03/05/2018 Appointment: Injection 03/02/2018 Patient Education: Patient Medication Summary Completed 03/02/2018 Visit Plan: Shoulder pain - suspect a tendon rupture or partial tear - referral to dr cat for shoulder injections - pt is not interested in surgical intervention. 02/26/2018 Appointment: Yarely Vega WPtel: [facility] [place] (15 min) Moderate 02/26/2018 Patient Education: Patient Medication Summary Completed 02/26/2018 Care Plan: Referral Order SNOMED-CT : [id number] Pending 02/26/2018 Appointment: Injection 02/08/2018 Patient Education: Patient Medication Summary Completed 02/08/2018 Appointment: Injection 01/24/2018 Patient Education: Patient Medication Summary Completed 01/24/2018 Appointment: Injection 01/10/2018 Patient Education: Patient Medication Summary Completed 01/10/2018 Appointment: Injection 12/27/2017 Patient Education: Patient Medication Summary Completed 12/27/2017 Appointment: Yarely Vega WPtel: [facility] [place] (15 min) Moderate 12/26/2017 Visit Plan: Whdxjy-unixbtcwk-kmfioooz protonix-follow up with Dr Navarro as scheduled Cough-recent bronchitis-symptoms improved-call if symptoms do not completely resolve 12/12/2017 Appointment: [facility] [place] (15 min) Moderate 12/12/2017 Patient Education: Patient Medication Summary Completed 12/12/2017 Visit Plan: Bronchitis - acute case of bronchitis identified. Pt has been given antibiotics, breathing treatments as appropriate, and pt has been instructed to call if symptoms are not improved, or if symptoms acutely worsen. Cough - rx for antibiotics as well as cough medication. 12/04/2017 Appointment: Yarely Vega WPtel: [facility] [place] (15 min) Moderate 12/04/2017 Patient Education: [...] Fatigue/malaise -Pt was advsied to ask the Embroiderer Hand the following: ask the heart doctor if [...] uncontrolled. 11/20/2017 Appointment: [phone] [place] (15 min) Moderate 11/20/2017 Patient Education: Patient [...] any worse. 09/15/2017 Appointment: [facility] [phone] [facility] [place] (15 min) Moderate 09/15/2017 Patient Education: Patient Medication Summary Completed 09/15/2017 Appointment: Yarely Vega WPtel: [address] [place], [place] [phone] (15 min) Moderate 09/11/2017 Visit Plan: Skin tear and Cellulitis - The patient was instructed in appropriate wound care. The patient was instructed to use the antibiotic ointment as per RX. The patient is to call for any change in symptoms, increase in size of the lesion, increase in pain, worsening redness, warmth, discharge. 09/07/2017 Appointment: Brianna Otoole WPtel: [facility] (10 min) Simple 09/07/2017 Patient Education: Patient Medication Summary Completed 09/07/2017 Visit Plan: Lipoma - left ankle - talk to dr. barnes about possible surgery/laser for treatment of lipoma. Fatigue/malaise -Pt was advsied to ask the Embroiderer Hand the following: ask the heart doctor if there is an alternative to the amiodarone - you may be having side effects from the medication causing you to have pruritus (itching) and feeling like you have body aches, muscle aches, joint pain, fatigue, weight loss (decreased appetite), and pneumonia like symptoms. Congestion - claritin 10mg daily. 08/30/2017 Appointment: Yarely Vega WPtel: [address] [place], [place] [phone] (15 min) Moderate 08/30/2017 Patient Education: Patient Medication Summary Completed 08/30/2017 Appointment: Injection 08/24/2017 Appointment: Yarely Vega WPtel: [address] [place], [place] [phone] (15 min) Moderate 08/24/2017 Patient Education: Patient [...] mucinex 07/06/2017 Appointment: [phone] (15 min) Moderate 07/06/2017 Patient Education: Patient [...] spray. 06/20/2017 Appointment: [facility]: [phone] [facility] (15 min) Moderate 06/20/2017 Patient [...] Injection 06/05/2017 Appointment: Brianna Otoole WPtel: [phone] [facility] [facility] - Annual Wellness Visit 06/05/2017 Patient [...] q 3 months or q 6 m [facility] based on previous levels of control. 05/25/2017 Appointment: [phone] (15 min) Moderate 05/25/2017 Patient Education: Patient [...] wall. Fatigue - pt to discuss with Embroiderer Hand about the possibility of amiodarone causing her fatigue/malaise. 03/23/2017 Appointment: [phone] (15 min) Moderate 03/23/2017 Patient Education: Patient [...] twice daily. 01/23/2017 Appointment: Yarely Vega WPtel: [facility] (15 min) Moderate 01/23/2017 Patient Education: Patient [...] improve. 11/02/2016 Appointment: Bri[facility] Otoole [facility]Ptel: [phone] [facility] [place] (15 min) Moderate 11/02/2016 Patient Education: [...] carafate 09/29/2016 Appointment: [facility] [place] (15 min) Moderate 09/29/2016 Patient Education: Patient Medication Summary Completed 09/29/2016 Appointment: Y[facility]ega [facility]: [facility] [facility] [place] (15 min) Moderate 09/27/2016 Appointment: [facility]Pt[phone] [facility] [place] (15 min) Moderate 09/20/2016 Appointment: Y[facility]ega [facility] [facility] [place] (15 min) Moderate 09/20/2016 Patient Education: Patient Medication Summary Completed 09/06/2016 Appointment: [facility] [place] (15 min) Moderate 08/30/2016 Appointment: Injection [...] acute concerns. 07/26/2016 Appointment: [facility] (15 min) Moderate 07/26/2016 Patient Education: Patient [...] care surrogate. 05/30/2016 Appointment: Bri[facility] Otoole [facility]Ptel: [phone] [facility] [place] [facility] - Annual Wellness Visit 05/30/2016 [...] bedtime 05/25/2016 Appointment: [phone] (15 min) Moderate 05/25/2016 Patient Education: Patient Medication Summary Completed 05/25/2016 Patient Education: Obesity Completed 05/25/2016 Care Plan: Referral Order SNOMED-CT : [id number] Pending 05/25/2016 Appointment: Injection 05/10/2016 Patient Education: Patient Medication Summary Completed 05/10/2016 Appointment: Injection 04/26/2016 Patient Education: Patient Medication Summary Completed 04/26/2016 Appointment: Injection 04/11/2016 Patient Education: Patient Medication Summary Completed 04/11/2016 Appointment: Injection 03/31/2016 Patient Education: Patient Medication Summary Completed 03/31/2016 Patient Education: Patient Medication Summary Completed 03/22/2016 Care Plan: [facility] [id number] Pending 03/22/2016 Appointment: Injection 03/15/2016 Patient Education: [...] concerns. 02/25/2016 Appointment: Bri[facility] Otoole [facility]Ptel: [phone] [facility] [place] (15 min) Moderate 02/25/2016 Patient Education: [...] the patients recent sleep study - recommended [place] patient eval of pt - nocturnal [...] the patients recent sleep study - recommended [place] patient eval of pt - nocturnal [...] case with Faiza's daughter who had left [facility]. She is interested in looking at assisted living facilities for her mom as Faiza's family is for assisted living placement sooner rather than later. 10/12/2015 Appointment: Yarely Vega WPtel: [facility] (15 min) Moderate 10/12/2015 Patient Education: Patient [...] Completed 08/17/2015 Appointment: [phone] [place] (15 min) Moderate 08/11/2015 Appointment: Injection [...] x 2 05/19/2015 Appointment: [facility]Ptel[facility] [place] (30 min) Complex 05/19/2015 Patient Education: Patient [...] prn alprazolam. 01/13/2015 Appointment: Yarely Vega WPtel: [address] [place] [address] [place] (15 min) Moderate 01/13/2015 Patient Education: [...] medications. 12/16/2014 Appointment: [facility]el: [phone] [facility] [place] ([place] New Patient 12/16/2014 Patient Education: Patient Medication Summary Completed 12/16/2014 Appointment: Injection 12/10/2014 Patient Education: Patient Medication Summary Completed 12/10/2014 Appointment: Injection 11/26/2014 Patient Education: Patient Medication Summary Completed 11/26/2014 Patient Education: Patient Medication Summary Completed 11/12/2014 Appointment: Nurse Visit 10/28/2014 Patient Education: Patient Medication Summary Completed 10/28/2014 Appointment: Injection 10/14/2014 Referral: Genaro Bravo Referral Appointment Requested Referral: Car Cat Referral Appointment Requested Instructions Comment . Hypertension [...] case with Faiza's daughter who had left [facility]. She is interested in looking [...] based on previous levels of control. . b12 injection . Xikqsl-pibjtxmwt-hmrmebjb protonix-follow up with Dr Navarro as scheduled Cough-recent bronchitis-symptoms improved-call if symptoms do not completely resolve decrease topamax to one pill nightly . [...] to post-nasal drainage - restart flonase . Atrial Fibrillation - pt on chronic [...] her DOPA paperwork for health care surrogate. B12 and steroid shot today start doxycycline [...] Fatigue/malaise -Pt was advsied to ask the Embroiderer Hand the following: ask the heart doctor if [...] - cryotherapy of skin lesions x 2 CLARITIN FLONASE KENALOG INJECTION TODAY CALL IF [...] control. headaches - take topamax at bedtime ask the heart doctor if there is [...] Fatigue/malaise -Pt was advsied to ask the Embroiderer Hand the following: ask the heart doctor if [...] or partial tear - referral to dr cat for shoulder injections - pt is not interested in surgical intervention. loratadine - generic for CLARITIN - take [...] the patients recent sleep study - recommended [place] patient eval of pt - nocturnal [...] spray in the nasal steroid allergy spray. talk to Heart doctor about possible amiodarone [...] wall. Fatigue - pt to discuss with Embroiderer Hand about the possibility of amiodarone causing her [...] the patients recent sleep study - recommended [place] eval of pt - nocturnal oxygen [...] continue with current treatment plan and mucinex liquid or dissolving B12 - 2000 units [...]
--- OUTSIDE RECORDS SUMMARY | 2018-12-05 16:03 | XMS REPORT | CCD ---
Author Author [facility] Organization [facility] Address [address] [place] [address] Phone Care Team Providers Care Erp Programmer Name Role Phone PP Unavailable CCM Unavailable Summary Purpose Interface Exchange Insurance Providers Payer name Policy type / Coverage type Covered democrat ID Effective Begin Date Effective End Date WPS Medicare Part B Medicare Part B [id number] Unknown Unknown Principal Life Insurance Medicare Part B [id number] Unknown Unknown Family history Brother Diagnosis Age At Onset Heart Attack Unknown Mother Diagnosis Age At Onset Hypertension Unknown kidney disease Unknown Stroke Unknown Father Diagnosis Age At Onset Arthritis Unknown Social History Social History Element Codes Description Effective Dates Marital status Unknown Single 12/16/2014 Employment Unknown Retired 12/16/[address]: 4692352 Former smoker 12/16/[address]: 552186594 Never drinks alcohol 12/16/2014 Allergies, Adverse Reactions, Alerts Allergies, Adverse Reactions, Alerts data not found Past Medical History Illness Codes Condition Status Onset Date Resolved Date Vitamin B12 deficiency anemia, unspecified ICD-9: 281.1 ICD-10: D51.9 Active 06/21/2016 Unknown 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 Active 07/04/2016 Unknown Dysuria ICD-9: 788.1 ICD-10: R30.0 Active 11/07/2016 Unknown Low back pain ICD-9: 724.2 ICD-10: M54.5 Active 11/02/2016 Unknown Pain in thoracic spine ICD-9: 724.1 ICD-10: M54.6 Active 11/02/2016 Unknown Essential (primary) hypertension ICD-9: 401.9 ICD-10: I10 Active 12/15/2014 Unknown Generalized abdominal pain ICD-9: 789.07 ICD-10: [...] ICD-9: V76.12 ICD-10: Z12.31 Active 03/21/2016 Unknown Encounter for immunization ICD-9: V04.81 ICD-10: Z23 Active 03/14/2016 Unknown Other chest pain ICD-9: 786.59 ICD-10: [...] ICD-9: 790.5 ICD-10: R74.8 Active 09/02/2015 Unknown Chronic atrial fibrillation ICD-9: 427.31 ICD-10: I48.2 Active 12/15/2014 Unknown Type 2 diabetes mellitus without complications ICD-9: 250.00 ICD-10: E11.9 Active 12/15/2014 Unknown Actinic keratosis ICD-9: 702.0 ICD-10: L57.0 Active 05/18/2015 Unknown Nausea ICD-9: 787.02 ICD-10: R11.0 Active 05/18/2015 Unknown Cervicalgia ICD-9: 723.1 ICD-10: M54.2 Active 05/11/2015 Unknown Headache ICD-9: 784.0 ICD-10: R51 Active 05/11/2015 Unknown Vitamin B deficiency, unspecified ICD-9: 266.2 ICD-10: E53.9 Active 10/27/2014 04/30/2015 Other screening mammogram ICD-9: V76.12 Active 01/21/2015 [...] unspecified ICD-9: 281.1 ICD-10: D51.9 06/21/2016 Active 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 07/04/2016 Active Dysuria ICD-9: 788.1 ICD-10: R30.0 11/07/2016 Active Low back pain ICD-9: 724.2 ICD-10: M54.5 11/02/2016 Active Pain in thoracic spine ICD-9: 724.1 ICD-10: M54.6 11/02/2016 Active Essential (primary) hypertension ICD-9: 401.9 ICD-10: I10 12/15/2014 Active Generalized abdominal pain ICD-9: 789.07 ICD-10: [...] breast ICD-9: V76.12 ICD-10: Z12.31 03/21/2016 Active Encounter for immunization ICD-9: V04.81 ICD-10: Z23 03/14/2016 Active Other chest pain ICD-9: 786.59 ICD-10: [...] enzymes ICD-9: 790.5 ICD-10: R74.8 09/02/2015 Active Chronic atrial fibrillation ICD-9: 427.31 ICD-10: I48.2 12/15/2014 Active Type 2 diabetes mellitus without complications ICD-9: 250.00 ICD-10: E11.9 12/15/2014 Active Actinic keratosis ICD-9: 702.0 ICD-10: L57.0 05/18/2015 Active Nausea ICD-9: 787.02 ICD-10: R11.0 05/18/2015 Active Cervicalgia ICD-9: 723.1 ICD-10: M54.2 05/11/2015 Active Headache ICD-9: 784.0 ICD-10: R51 05/11/2015 Active Vitamin B deficiency, unspecified ICD-9: 266.2 ICD-10: E53.9 10/27/2014 Active Other screening mammogram ICD-9: V76.12 01/21/2015 [...] (vit B-12) 1,000 mcg/mL injection solution RxNorm: 124653 1 Milliliter(s) Inj 12/28/2016 12/28/2016 Inactive cyanocobalamin (vit B-12) 1,000 mcg/mL injection solution RxNorm: 334991 Milliliter(s) Inj 12/14/2016 12/14/2016 Inactive buspirone 15 mg tablet RxNorm: 332533 1 Tablet(s) PO BID 12/12/2016 06/09/2017 Active hydrocodone 5 mg-acetaminophen 325 mg tablet RxNorm: 429969 1-2 Tablet(s) PO Q6 as needed for pain 12/08/2016 12/12/2016 Inactive Topamax 25 mg tablet RxNorm: 617876 TAKE 1 TABLET BY MOUTH EVERY DAY AT BEDTIME 12/06/2016 04/04/2017 Active Generic For:TOPAMAX 25MG 12/06/2016 9:15:13 AM Lac-Hydrin Five 5 % lotion RxNorm: 296405 1 Gram(s) TOP daily 12/02/2016 01/30/2017 Active cyanocobalamin (vit B-12) 1,000 mcg/mL injection solution RxNorm: 312943 Milliliter(s) Inj 11/24/2016 11/24/2016 Inactive Ceftin 500 mg tablet RxNorm: 297464 1 Tablet(s) PO BID 11/11/2016 11/17/2016 Inactive Cipro 500 mg tablet RxNorm: 029315 1 Tablet(s) PO BID 11/11/2016 11/10/2016 Inactive Cipro 500 mg tablet RxNorm: 263300 1 Tablet(s) PO BID 11/11/2016 11/11/2016 Inactive cyanocobalamin (vit B-12) 1,000 mcg/mL injection solution RxNorm: 396493 1 Milliliter(s) Inj 11/07/2016 11/07/2016 Inactive hydrocodone 5 mg-acetaminophen 325 mg tablet RxNorm: 759072 1-2 Tablet(s) PO Q6 as needed for pain 11/02/2016 11/06/2016 Inactive levothyroxine 125 mcg tablet RxNorm: 344907 Tablet(s) 1 Tablet(s) PO daily 10/24/2016 04/21/2017 Active liothyronine 5 mcg tablet RxNorm: 983786 1 Tablet(s) PO BID 10/24/2016 04/21/2017 Active cyanocobalamin (vit B-12) 1,000 mcg/mL injection solution RxNorm: 760266 Milliliter(s) Inj 10/24/2016 10/24/2016 Inactive hydrocodone 5 mg-acetaminophen 325 mg tablet RxNorm: 818389 1-2 Tablet(s) PO Q6 as needed for pain 10/17/2016 10/21/2016 Inactive Keflex 500 mg capsule RxNorm: 594507 1 Capsule(s) PO TID 10/07/2016 10/06/2016 Inactive Keflex 500 mg capsule RxNorm: 495432 1 Capsule(s) PO TID 10/07/2016 10/16/2016 Inactive Please deliver to patient cyanocobalamin (vit B-12) 1,000 mcg/mL injection solution RxNorm: 974912 1 Milliliter(s) Inj 09/29/2016 09/29/2016 Inactive alprazolam 0.25 mg tablet RxNorm: 769541 1 Tablet(s) PO BID 09/20/2016 03/18/2017 Active Zoloft 50 mg tablet RxNorm: 243450 Tablet(s) TAKE 1 TABLET BY MOUTH DAILY 09/14/2016 03/12/2017 Active Generic For:ZOLOFT 50MG Cozaar 100 mg tablet RxNorm: 055531 1 Tablet(s) PO daily 09/14/2016 No Stop Date Active metoprolol tartrate 50 mg tablet RxNorm: 496186 1/2 Tablet(s) PO BID 09/14/2016 12/12/2016 Inactive liothyronine 5 mcg tablet RxNorm: 515386 1 Tablet(s) PO BID 09/14/2016 10/23/2016 Inactive Calmoseptine 0.44 %-20.6 % topical ointment RxNorm: 382590 1 Application TOP BID and as needed to sore on buttocks 09/07/2016 No Stop Date Active cyanocobalamin (vit B-12) 1,000 mcg/mL injection solution RxNorm: 776838 Milliliter(s) Inj 08/29/2016 08/29/2016 Inactive hydrocodone 5 mg-acetaminophen 325 mg tablet RxNorm: 345424 1-2 Tablet(s) PO Q6 as needed for pain 08/29/2016 10/16/2016 Inactive levothyroxine 125 mcg tablet RxNorm: 313878 1 Tablet(s) PO daily 08/25/2016 10/23/2016 Inactive Topamax 25 mg tablet RxNorm: 598873 TAKE 1 TABLET BY MOUTH EVERY DAY AT BEDTIME 08/17/2016 12/05/2016 Inactive Generic For:TOPAMAX 25MG 08/17/2016 2:14:37 PM hydrocodone 5 mg-acetaminophen 325 mg tablet RxNorm: 863167 1-2 Tablet(s) PO Q6 as needed for pain 08/11/2016 08/28/2016 Inactive hydrocodone 5 mg-acetaminophen 325 mg tablet RxNorm: 030404 1 -2 Tablet(s) PO Q6 as needed for pain 08/11/2016 08/18/2016 Inactive hydrocodone 5 mg-acetaminophen 325 mg tablet RxNorm: 938467 1 Tablet(s) PO Q6 as needed for pain 08/05/2016 08/10/2016 Inactive cyanocobalamin (vit B-12) 1,000 mcg/mL injection solution RxNorm: 204896 Milliliter(s) Inj 08/04/2016 08/04/2016 Inactive Norvasc 10 mg tablet RxNorm: 835127 1 Tablet(s) PO daily 07/26/2016 07/20/2017 Active levothyroxine 125 mcg tablet RxNorm: 365215 1 Tablet(s) PO daily 07/21/2016 10/18/2016 Inactive alprazolam 0.25 mg tablet RxNorm: 263456 1 Tablet(s) PO QHS 07/21/2016 09/19/2016 Inactive Norvasc 5 mg tablet RxNorm: 186855 1 Tablet(s) PO daily 07/21/2016 07/25/2016 Inactive cyanocobalamin (vit B-12) 1,000 mcg/mL injection solution RxNorm: 909479 Milliliter(s) Inj 07/21/2016 07/21/2016 Inactive Zoloft 50 mg tablet RxNorm: 708982 Tablet(s) TAKE 1 TABLET BY MOUTH DAILY 07/21/2016 09/13/2016 Inactive Generic For:ZOLOFT 50MG cyanocobalamin (vit B-12) 1,000 mcg/mL injection solution RxNorm: 531994 1 Milliliter(s) Inj 07/05/2016 07/05/2016 Inactive cyanocobalamin (vit B-12) 1,000 mcg/mL injection solution RxNorm: 643228 1 Milliliter(s) Inj 06/22/2016 06/22/2016 Inactive cyanocobalamin (vit B-12) 1,000 mcg/mL injection solution RxNorm: 361182 Milliliter(s) Inj 06/09/2016 06/09/2016 Inactive Aricept 10 mg tablet RxNorm: 909979 1 Tablet(s) PO daily 05/27/2016 05/21/2017 Active Mobic 15 mg tablet RxNorm: 996218 1 Tablet(s) PO daily 05/27/2016 05/21/2017 Active levothyroxine 125 mcg tablet RxNorm: 742836 1 Tablet(s) PO daily 05/25/2016 07/20/2016 Inactive cyanocobalamin (vit B-12) 1,000 mcg/mL injection solution RxNorm: 706800 1 Milliliter(s) Inj 05/25/2016 05/25/2016 Inactive doxycycline hyclate 100 mg capsule RxNorm: 4160954 1 Capsule(s) PO BID 05/16/2016 05/15/2016 Inactive doxycycline hyclate 100 mg capsule RxNorm: 7233703 1 Capsule(s) PO BID 05/16/2016 05/22/2016 Inactive cyanocobalamin (vit B-12) 1,000 mcg/mL injection solution RxNorm: 792752 Milliliter(s) Inj 05/10/2016 05/10/2016 Inactive cyanocobalamin (vit B-12) 1,000 mcg/mL injection solution RxNorm: 124306 Milliliter(s) Inj 04/26/2016 04/26/2016 Inactive Topamax 25 mg tablet RxNorm: 132724 1 Tablet(s) PO QPM 04/22/2016 08/16/2016 Inactive cyanocobalamin (vit B-12) 1,000 mcg/mL injection solution RxNorm: 953491 Milliliter(s) 1 Milliliter(s) Inj [id number] 04/11/2016 12/31/2017 Active liothyronine 5 mcg tablet RxNorm: 561577 1 Tablet(s) PO BID 04/11/2016 09/13/2016 Inactive cyanocobalamin (vit B-12) 1,000 mcg/mL injection solution RxNorm: 563968 Milliliter(s) Inj 04/11/2016 04/11/2016 Inactive cyanocobalamin (vit B-12) 1,000 mcg/mL injection solution RxNorm: 270071 Milliliter(s) Inj 03/31/2016 03/31/2016 Inactive cyanocobalamin (vit B-12) 1,000 mcg/mL injection solution RxNorm: 277842 1 Milliliter(s) Inj 03/15/2016 03/15/2016 Inactive levothyroxine 125 mcg tablet RxNorm: 134958 1 Tablet(s) PO daily 2016 03/03/2016 Inactive levothyroxine 125 mcg tablet RxNorm: 326888 1 Tablet(s) PO daily 2016 05/24/2016 Inactive cyanocobalamin (vit B-12) 1,000 mcg/mL injection solution RxNorm: 918487 Milliliter(s) Inj 02/25/2016 02/25/2016 Inactive cyanocobalamin (vit B-12) 1,000 mcg/mL injection solution RxNorm: 121292 1 Milliliter(s) Inj 02/02/2016 02/02/2016 Inactive sucralfate 1 gram tablet RxNorm: 210735 1 Tablet(s) PO QHS 01/25/2016 No Stop Date Active amiodarone 200 mg tablet RxNorm: 819774 1/2 Tablet(s) PO BID 01/25/2016 No Stop Date Active cyanocobalamin (vit B-12) 1,000 mcg/mL injection solution RxNorm: 677994 Milliliter(s) Inj 01/18/2016 01/18/2016 Inactive cyanocobalamin (vit B-12) 1,000 mcg/mL injection solution RxNorm: 995032 Milliliter(s) Inj 12/29/2015 12/29/2015 Inactive Topamax 25 mg tablet RxNorm: 013856 1 Tablet(s) PO QPM 12/08/2015 04/05/2016 Inactive cyanocobalamin (vit B-12) 1,000 mcg/mL injection solution RxNorm: 461088 Milliliter(s) Inj 12/08/2015 12/08/2015 Inactive Bactrim DS 800 mg-160 mg tablet RxNorm: 546174 1 Tablet(s) PO BID 11/23/2015 11/22/2015 Inactive cyanocobalamin (vit B-12) 1,000 mcg/mL injection solution RxNorm: 157777 Milliliter(s) Inj 11/23/2015 11/23/2015 Inactive Bactrim DS 800 mg-160 mg tablet RxNorm: 610376 1 Tablet(s) PO BID 11/23/2015 11/29/2015 Inactive cyanocobalamin (vit B-12) 1,000 mcg/mL injection solution RxNorm: 987945 Milliliter(s) Inj 11/11/2015 11/11/2015 Inactive amoxicillin 500 mg capsule RxNorm: 309645 1 Capsule(s) PO TID 11/10/2015 11/19/2015 Inactive Zithromax Z-Henrique 250 mg tablet RxNorm: 784667 1 Tablet(s) PO UD 11/10/2015 01/24/2016 Inactive zpack x 1 amoxicillin 500 mg capsule RxNorm: 360590 1 Capsule(s) PO TID 11/10/2015 11/09/2015 Inactive cyanocobalamin (vit B-12) 1,000 mcg/mL injection solution RxNorm: 899444 1 Milliliter(s) Inj 10/29/2015 10/29/2015 Inactive Reading 3 capsule RxNorm: 1 Capsule(s) PO QAM , 2 Capsules at noon, 1 Capsule QHS 10/13/2015 No Stop Date Active potassium chloride ER 20 mEq tablet,extended release RxNorm: 388657 2 Tablet(s) PO daily at noon 10/13/2015 No Stop Date Active alprazolam 0.25 mg tablet RxNorm: 824445 1 Tablet(s) PO QHS 10/13/2015 07/20/2016 Inactive amiodarone 200 mg tablet RxNorm: 961378 1 Tablet(s) PO BID 10/13/2015 01/24/2016 Inactive cyanocobalamin (vit B-12) 1,000 mcg/mL injection solution RxNorm: 427973 1 Milliliter(s) Inj 10/12/2015 10/12/2015 Inactive Zofran 4 mg tablet RxNorm: 439355 1 Tablet(s) PO daily as needed 10/07/2015 05/24/2016 Inactive Zoloft 50 mg tablet RxNorm: 244390 TAKE 1 TABLET BY MOUTH DAILY 10/05/2015 05/01/2016 Inactive Generic For:ZOLOFT 50MG cyanocobalamin (vit B-12) 1,000 mcg/mL injection solution RxNorm: 551497 1 Milliliter(s) Inj 09/29/2015 09/29/2015 Inactive cyanocobalamin (vit B-12) 1,000 mcg/mL injection solution RxNorm: 927869 1 Milliliter(s) Inj 09/17/2015 09/17/2015 Inactive Norvasc 5 mg tablet RxNorm: 558524 1 Tablet(s) PO daily 09/17/2015 07/20/2016 Inactive liothyronine 5 mcg tablet RxNorm: 703487 1 Tablet(s) PO BID 09/17/2015 03/14/2016 Inactive Zoloft 50 mg tablet RxNorm: 037967 1 Tablet(s) PO daily 09/17/2015 10/04/2015 Inactive buspirone 15 mg tablet RxNorm: 676669 1 Tablet(s) PO BID 09/17/2015 09/10/2016 Inactive buspirone 15 mg tablet RxNorm: 737526 1 Tablet(s) PO BID 09/14/2015 09/16/2015 Inactive Topamax 25 mg tablet RxNorm: 386610 1 Tablet(s) PO QPM 09/03/2015 12/07/2015 Inactive cyanocobalamin (vit B-12) 1,000 mcg/mL injection solution RxNorm: 245023 1 Milliliter(s) Inj 09/03/2015 09/03/2015 Inactive cyanocobalamin (vit B-12) 1,000 mcg/mL injection solution RxNorm: 601546 Milliliter(s) Inj 08/17/2015 08/17/2015 Inactive cyanocobalamin (vit B-12) 1,000 mcg/mL injection solution RxNorm: 706325 Milliliter(s) Inj 08/06/2015 08/06/2015 Inactive levothyroxine 150 mcg tablet RxNorm: 541663 1 Tablet(s) PO daily 07/22/2015 03/03/2016 Inactive Aricept 10 mg tablet RxNorm: 162300 1 Tablet(s) PO daily 07/22/2015 05/26/2016 Inactive Mobic 15 mg tablet RxNorm: 595159 1 Tablet(s) PO daily 07/22/2015 05/26/2016 Inactive cyanocobalamin (vit B-12) 1,000 mcg/mL injection solution RxNorm: 377861 Milliliter(s) Inj 07/22/2015 07/22/2015 Inactive liothyronine 5 mcg tablet RxNorm: 711237 1 Tablet(s) PO BID 07/22/2015 09/16/2015 Inactive cyanocobalamin (vit B-12) 1,000 mcg/mL injection solution RxNorm: 715744 Milliliter(s) Inj 07/08/2015 07/08/2015 Inactive cyanocobalamin (vit B-12) 1,000 mcg/mL injection solution RxNorm: 255765 Milliliter(s) Inj 06/23/2015 06/23/2015 Inactive cyanocobalamin (vit B-12) 1,000 mcg/mL injection solution RxNorm: 732477 1 Milliliter(s) Inj 06/08/2015 06/08/2015 Inactive cyanocobalamin (vit B-12) 1,000 mcg/mL injection solution RxNorm: 930078 Milliliter(s) Inj 05/27/2015 05/27/2015 Inactive Aricept 10 mg tablet RxNorm: 788505 1 Tablet(s) PO daily 05/20/2015 07/21/2015 Inactive Zofran 4 mg tablet RxNorm: 627356 1 Tablet(s) PO daily as needed 05/20/2015 06/18/2015 Inactive alprazolam 0.25 mg tablet RxNorm: 886692 1 Tablet(s) PO BID 05/20/2015 10/12/2015 Inactive Mobic 15 mg tablet RxNorm: 817438 1 Tablet(s) PO daily 05/20/2015 07/21/2015 Inactive tramadol ER 100 mg tablet,extended release 24 hr RxNorm: 950334 1 Tablet(s) PO Q6 as needed 05/13/2015 No Stop Date Active cyanocobalamin (vit B-12) 1,000 mcg/mL injection solution RxNorm: 292756 1 Milliliter(s) Inj 05/12/2015 05/12/2015 Inactive Topamax 25 mg tablet RxNorm: 584844 1 Tablet(s) PO BID (start at one pill at bedtime x 1week then twice daily thereafter) 05/12/2015 09/02/2015 Inactive cyanocobalamin (vit B-12) 1,000 mcg/mL injection kit RxNorm: 564927 kit Inj 04/30/2015 04/30/2015 Inactive cyanocobalamin (vit B-12) 1,000 mcg/mL injection solution RxNorm: 987002 Milliliter(s) Inj 04/16/2015 04/16/2015 Inactive levothyroxine 150 mcg tablet RxNorm: 303561 1 Tablet(s) PO daily 04/08/2015 07/21/2015 Inactive cyanocobalamin (vit B-12) 1,000 mcg/mL injection solution RxNorm: 554731 Milliliter(s) 1 Milliliter(s) Inj Q7tiqgz 04/08/2015 04/10/2016 Inactive Cytomel 5 mcg tablet RxNorm: 584029 1 Tablet(s) PO BID 04/08/2015 10/12/2015 Inactive Cytomel 5 mcg tablet RxNorm: 564534 1 Tablet(s) PO BID 04/07/2015 04/07/2015 Inactive Cytomel 5 mcg tablet RxNorm: 128824 1 Tablet(s) PO BID 04/07/2015 04/06/2015 Inactive cyanocobalamin (vit B-12) 1,000 mcg/mL injection solution RxNorm: 877121 Milliliter(s) Inj 04/02/2015 04/02/2015 Inactive cyanocobalamin (vit B-12) 1,000 mcg/mL injection solution RxNorm: 548484 Milliliter(s) Inj 03/18/2015 03/18/2015 Inactive cyanocobalamin (vit B-12) 1,000 mcg/mL injection solution RxNorm: 780223 Milliliter(s) 1 Milliliter(s) Inj [id number] 03/18/2015 04/07/2015 Inactive cyanocobalamin (vit B-12) 1,000 mcg/mL injection solution RxNorm: 925577 1 Milliliter(s) Inj Q4yegbk 03/16/2015 03/17/2015 Inactive cyanocobalamin (vit B-12) 1,000 mcg/mL injection solution RxNorm: 625559 Milliliter(s) Inj 03/03/2015 03/03/2015 Inactive cyanocobalamin (vit B-12) 1,000 mcg/mL injection solution RxNorm: 025799 Milliliter(s) Inj 02/18/2015 02/18/2015 Inactive cyanocobalamin (vit B-12) 1,000 mcg/mL injection solution RxNorm: 544003 Milliliter(s) Inj 02/04/2015 02/04/2015 Inactive cyanocobalamin (vit B-12) 1,000 mcg/mL injection solution RxNorm: 314238 Milliliter(s) Inj 01/22/2015 01/22/2015 Inactive Lac-Hydrin Five 5 % lotion RxNorm: 392117 1 TOP daily 01/13/2015 03/13/2015 Inactive Lac-Hydrin Five 5 % lotion RxNorm: 493455 1 TOP daily 01/13/2015 01/12/2015 Inactive cyanocobalamin (vit B-12) 1,000 mcg/mL injection solution RxNorm: 501622 Milliliter(s) Inj 01/08/2015 01/08/2015 Inactive cyanocobalamin (vit B-12) 1,000 mcg/mL injection solution RxNorm: 627431 Milliliter(s) Inj 12/25/2014 12/25/2014 Inactive levothyroxine 150 mcg tablet RxNorm: 921947 1 Tablet(s) PO daily 12/24/2014 04/07/2015 Inactive tramadol 50 mg tablet RxNorm: 073603 1-2 Tablet(s) PO Q6 as needed 12/17/2014 05/12/2015 Inactive alprazolam 0.25 mg tablet RxNorm: 947542 1 Tablet(s) PO BID 12/17/2014 04/15/2015 Inactive Pradaxa 150 mg capsule RxNorm: 6582899 1 Capsule(s) PO BID 12/16/2014 No Stop Date Active metoprolol tartrate 50 mg tablet RxNorm: 496050 1/2 Tablet(s) PO BID 12/16/2014 09/13/2016 Inactive buspirone 15 mg tablet RxNorm: 770919 1 Tablet(s) PO BID 12/16/2014 09/13/2015 Inactive cyanocobalamin (vit B-12) 1,000 mcg/mL injection solution RxNorm: 702294 1 Milliliter(s) Inj [id number] 12/16/2014 03/15/2015 Inactive cyanocobalamin (vit B-12) 1,000 mcg/mL injection solution RxNorm: 948219 1 Milliliter(s) Inj [id number] 12/16/2014 12/15/2014 Inactive sucralfate 1 gram tablet RxNorm: 110248 Tablet(s) PO QID 12/16/2014 12/10/2015 Inactive cyanocobalamin (vit B-12) 1,000 mcg/mL injection solution RxNorm: 315755 Milliliter(s) Inj 12/10/2014 12/10/2014 Inactive cyanocobalamin (vit B-12) 1,000 mcg/mL injection solution RxNorm: 806369 Milliliter(s) Inj 11/26/2014 11/26/2014 Inactive Zoloft 50 mg tablet RxNorm: 237334 1 Tablet(s) PO daily 11/24/2014 06/21/2015 Inactive Zoloft 50 mg tablet RxNorm: 437222 1 Tablet(s) PO daily 11/24/2014 11/23/2014 Inactive cyanocobalamin (vit B-12) 1,000 mcg/mL injection kit RxNorm: 875547 Milliliter(s) Inj 11/12/2014 11/12/2014 Inactive cyanocobalamin (vit B-12) 1,000 mcg/mL injection solution RxNorm: 993381 Milliliter(s) Inj 10/28/2014 10/28/2014 Inactive [SAVINGS FOR NON-COVERED DRUGS -- BIN:[id number], PCN: [id number], Group: [id number], ID# [id number], Questions: . THIS IS NOT INSURANCE.] promethazine oral RxNorm: 8745 oral No Start Date Active digoxin 125 mcg tablet RxNorm: 629196 Tablet(s) PO every other day No Start Date Active furosemide 40 mg tablet RxNorm: 510871 1 Tablet(s) PO daily No Start Date Active Vitamin D3 5,000 unit tablet RxNorm: 355589 1 Tablet(s) PO daily No Start Date Active erythromycin 250 mg capsule,delayed release RxNorm: 338641 1 Capsule(s) PO AC No Start Date Active Protonix 40 mg tablet,delayed release RxNorm: 972245 1 Tablet(s) PO BID No Start Date Active Cozaar 100 mg tablet RxNorm: 879774 1 Tablet(s) PO daily No Start Date 09/13/2016 Inactive sucralfate 1 gram tablet RxNorm: 366140 Tablet(s) PO QID No Start Date 12/15/2014 Inactive amiodarone 200 mg tablet RxNorm: 518599 2 Tablet(s) PO daily No Start Date 10/13/2015 Inactive buspirone 15 mg tablet RxNorm: 599114 1 Tablet(s) PO daily No Start Date 12/15/2014 Inactive potassium chloride ER 20 mEq tablet,extended release RxNorm: 545360 1 Tablet(s) PO daily No Start Date 10/12/2015 Inactive Prilosec 40 mg capsule,delayed release RxNorm: 798935 1 Capsule(s) PO daily No Start Date 09/02/2015 Inactive Reading 3 capsule RxNorm: Capsule(s) PO No Start Date 10/12/2015 Inactive alprazolam 0.25 mg tablet RxNorm: 297281 Tablet(s) PO QHS No Start Date 12/16/2014 Inactive levothyroxine 125 mcg tablet RxNorm: 889027 1 Tablet(s) PO daily No Start Date 12/23/2014 Inactive liothyronine 5 mcg tablet RxNorm: 629228 1 Tablet(s) PO BID No Start Date 07/21/2015 Inactive Mobic 15 mg tablet RxNorm: 294196 Tablet(s) PO daily No Start Date 05/19/2015 Inactive Norvasc 5 mg tablet RxNorm: 852236 1 Tablet(s) PO daily No Start Date 09/16/2015 Inactive Zofran 4 mg tablet RxNorm: 844154 1 Tablet(s) PO daily as needed No Start Date 05/19/2015 Inactive tramadol 50 mg tablet RxNorm: 958515 1 Tablet(s) PO daily as needed No Start Date 12/16/2014 Inactive amiodarone 200 mg tablet RxNorm: 120001 1 Tablet(s) PO daily No Start Date 10/12/2015 Inactive meclizine 25 mg tablet RxNorm: 664041 Tablet(s) PO as needed No Start Date 05/24/2016 Inactive Pradaxa 150 mg capsule RxNorm: 6196826 1 Capsule(s) PO daily No Start Date 12/15/2014 Inactive metoprolol tartrate 50 mg tablet RxNorm: 302372 1/2 Tablet(s) PO No Start Date 12/15/2014 Inactive Aricept 10 mg tablet RxNorm: 653196 Tablet(s) PO daily No Start Date 05/19/2015 Inactive Calmoseptine 0.44 %-20.6 % topical ointment RxNorm: 926077 1 Application TOP BID and as needed to sore on buttocks No Start Date 09/06/2016 Inactive Zithromax Z-Henrique 250 mg tablet RxNorm: 065952 1 Tablet(s) PO UD No Start Date 11/09/2015 Inactive zpack x 1 Medication Administered Medication Codes Instructions Start Date Status cyanocobalamin (vit B-12) 1,000 mcg/mL injection solution RxNorm: 546128 1Milliliter 12/28/2016 Active cyanocobalamin (vit B-12) 1,000 mcg/mL injection solution RxNorm: 444703 Milliliter 12/14/2016 No longer Active cyanocobalamin (vit B-12) 1,000 mcg/mL injection solution RxNorm: 626624 Milliliter 11/24/2016 No longer Active cyanocobalamin (vit B-12) 1,000 mcg/mL injection solution RxNorm: 192747 1Milliliter 11/07/2016 No longer Active cyanocobalamin (vit B-12) 1,000 mcg/mL injection solution RxNorm: 331363 Milliliter 10/24/2016 No longer Active cyanocobalamin (vit B-12) 1,000 mcg/mL injection solution RxNorm: 565951 1Milliliter 09/29/2016 No longer Active cyanocobalamin (vit B-12) 1,000 mcg/mL injection solution RxNorm: 569895 Milliliter 08/29/2016 No longer Active cyanocobalamin (vit B-12) 1,000 mcg/mL injection solution RxNorm: 901140 Milliliter 08/04/2016 No longer Active cyanocobalamin (vit B-12) 1,000 mcg/mL injection solution RxNorm: 198888 Milliliter 07/21/2016 No longer Active cyanocobalamin (vit B-12) 1,000 mcg/mL injection solution RxNorm: 882912 1[facility] 07/05/2016 No longer Active cyanocobalamin (vit B-12) 1,000 mcg/mL injection solution RxNorm: 125908 1[facility] 06/22/2016 No longer Active cyanocobalamin (vit B-12) 1,000 mcg/mL injection solution RxNorm: 589149 [facility] 06/09/2016 No longer Active cyanocobalamin (vit B-12) 1,000 mcg/mL injection solution RxNorm: 782346 1[facility] 05/25/2016 No longer Active cyanocobalamin (vit B-12) 1,000 mcg/mL injection solution RxNorm: 702678 [facility] 05/10/2016 No longer Active cyanocobalamin (vit B-12) 1,000 mcg/mL injection solution RxNorm: 679890 [facility] 04/26/2016 No longer Active cyanocobalamin (vit B-12) 1,000 mcg/mL injection solution RxNorm: 378423 [facility] 04/11/2016 No longer Active cyanocobalamin (vit B-12) 1,000 mcg/mL injection solution RxNorm: 003012 [facility] 03/31/2016 No longer Active cyanocobalamin (vit B-12) 1,000 mcg/mL injection solution RxNorm: 131130 1Milliliter 03/15/2016 No longer Active cyanocobalamin (vit B-12) 1,000 mcg/mL injection solution RxNorm: 372615 Milliliter 02/25/2016 No longer Active cyanocobalamin (vit B-12) 1,000 mcg/mL injection solution RxNorm: 456727 1Milliliter 02/02/2016 No longer Active cyanocobalamin (vit B-12) 1,000 mcg/mL injection solution RxNorm: 714106 Milliliter 01/18/2016 No longer Active cyanocobalamin (vit B-12) 1,000 mcg/mL injection solution RxNorm: 752774 Milliliter 12/29/2015 No longer Active cyanocobalamin (vit B-12) 1,000 mcg/mL injection solution RxNorm: 826269 Milliliter 12/08/2015 No longer Active cyanocobalamin (vit B-12) 1,000 mcg/mL injection solution RxNorm: 547103 Milliliter 11/23/2015 No longer Active cyanocobalamin (vit B-12) 1,000 mcg/mL injection solution RxNorm: 198620 Milliliter 11/11/2015 No longer Active cyanocobalamin (vit B-12) 1,000 mcg/mL injection solution RxNorm: 173887 1Milliliter 10/29/2015 No longer Active cyanocobalamin (vit B-12) 1,000 mcg/mL injection solution RxNorm: 474018 1Milliliter 10/12/2015 No longer Active cyanocobalamin (vit B-12) 1,000 mcg/mL injection solution RxNorm: 423745 1Milliliter 09/29/2015 No longer Active cyanocobalamin (vit B-12) 1,000 mcg/mL injection solution RxNorm: 135876 1Milliliter 09/17/2015 No longer Active cyanocobalamin (vit B-12) 1,000 mcg/mL injection solution RxNorm: 434375 1Milliliter 09/03/2015 No longer Active cyanocobalamin (vit B-12) 1,000 mcg/mL injection solution RxNorm: 357234 Milliliter 08/17/2015 No longer Active cyanocobalamin (vit B-12) 1,000 mcg/mL injection solution RxNorm: 055032 Milliliter 08/06/2015 No longer Active cyanocobalamin (vit B-12) 1,000 mcg/mL injection solution RxNorm: 269425 Milliliter 07/22/2015 No longer Active cyanocobalamin (vit B-12) 1,000 mcg/mL injection solution RxNorm: 764786 Milliliter 07/08/2015 No longer Active cyanocobalamin (vit B-12) 1,000 mcg/mL injection solution RxNorm: 764209 Milliliter 06/23/2015 No longer Active cyanocobalamin (vit B-12) 1,000 mcg/mL injection solution RxNorm: 399777 1Milliliter 06/08/2015 No longer Active cyanocobalamin (vit B-12) 1,000 mcg/mL injection solution RxNorm: 370966 Milliliter 05/27/2015 No longer Active cyanocobalamin (vit B-12) 1,000 mcg/mL injection solution RxNorm: 917241 1Milliliter 05/12/2015 No longer Active cyanocobalamin (vit B-12) 1,000 mcg/mL injection kit RxNorm: 277100 kit 04/30/2015 No longer Active cyanocobalamin (vit B-12) 1,000 mcg/mL injection solution RxNorm: 443220 Milliliter 04/16/2015 No longer Active cyanocobalamin (vit B-12) 1,000 mcg/mL injection solution RxNorm: 618444 Milliliter 04/02/2015 No longer Active cyanocobalamin (vit B-12) 1,000 mcg/mL injection solution RxNorm: 909785 Milliliter 03/18/2015 No longer Active cyanocobalamin (vit B-12) 1,000 mcg/mL injection solution RxNorm: 643518 Milliliter 03/03/2015 No longer Active cyanocobalamin (vit B-12) 1,000 mcg/mL injection solution RxNorm: 029459 Milliliter 02/18/2015 No longer Active cyanocobalamin (vit B-12) 1,000 mcg/mL injection solution RxNorm: 982995 Milliliter 02/04/2015 No longer Active cyanocobalamin (vit B-12) 1,000 mcg/mL injection solution RxNorm: 741169 Milliliter 01/22/2015 No longer Active cyanocobalamin (vit B-12) 1,000 mcg/mL injection solution RxNorm: 073099 Milliliter 01/08/2015 No longer Active cyanocobalamin (vit B-12) 1,000 mcg/mL injection solution RxNorm: 674043 Milliliter 12/25/2014 No longer Active cyanocobalamin (vit B-12) 1,000 mcg/mL injection solution RxNorm: 189113 Milliliter 12/10/2014 No longer Active cyanocobalamin (vit B-12) 1,000 mcg/mL injection solution RxNorm: 619333 Milliliter 11/26/2014 No longer Active cyanocobalamin (vit B-12) 1,000 mcg/mL injection kit RxNorm: 025196 Milliliter 11/12/2014 No longer Active cyanocobalamin (vit B-12) 1,000 mcg/mL injection solution RxNorm: 954539 Milliliter 10/28/2014 No longer Active Immunizations Vaccine Codes Date Status Pneumococcal (Adult) CVX: 33 05/25/2016 completed Influenza CVX: 141 03/15/2016 completed Assessments Condition Codes Effective Dates Vitamin B12 deficiency anemia, unspecified ICD-10: D51.9 ICD-9: 281.1 12/28/2016 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 ICD-9: 281.1 12/14/2016 Dysuria ICD-10: R30.0 ICD-9: 788.1 11/07/2016 Low back pain ICD-10: M54.5 ICD-9: 724.2 11/02/2016 Pain in thoracic spine ICD-10: M54.6 ICD-9: 724.1 11/02/2016 Essential (primary) hypertension ICD-10: I10 ICD-9: 401.9 09/29/2016 Generalized abdominal pain ICD-10: R10.84 ICD-9: 789.07 [...] of breast ICD-10: Z12.31 ICD-9: V76.12 03/22/2016 Encounter for immunization ICD-10: Z23 ICD-9: V04.81 03/15/2016 Other chest pain ICD-10: R07.89 ICD-9: 786.59 [...] Essential tremor ICD-10: G25.0 ICD-9: 333.1 10/12/2015 Chronic atrial fibrillation ICD-10: I48.2 ICD-9: 427.31 09/03/2015 Type 2 diabetes mellitus without complications ICD-10: E11.9 ICD-9: 250.00 09/03/2015 Abnormal levels of other serum enzymes ICD-10: R74.8 ICD-9: 790.5 09/03/2015 Actinic keratosis ICD-10: L57.0 ICD-9: 702.0 05/19/2015 Nausea ICD-10: R11.0 ICD-9: 787.02 05/19/2015 Headache ICD-10: R51 ICD-9: 784.0 05/12/2015 Cervicalgia ICD-10: M54.2 ICD-9: 723.1 05/12/2015 B12 deficiency ICD-9: 266.2 03/18/2015 Other screening mammogram ICD-9: V76.12 01/22/2015 Insomnia ICD-9: 780.52 01/13/2015 Afib ICD-9: 427.31 01/13/2015 Anxiety ICD-9: 300.00 01/13/2015 ESSENTIAL HYPERTENSION ICD-9: 401.9 01/13/2015 Hypothyroidism ICD-9: 244.9 12/16/2014 DIABETES TYPE II ICD-9: 250.00 12/16/2014 Reason For Visit Reason For Visit Effective Dates Notes back pain 11/02/2016 hypertension 09/29/2016 hypertension 07/26/2016 Annual Medicare Wellness Exam 05/30/2016 insomnia 05/25/2016 vaccination against influenza 03/15/2016 chest pain/pressure 02/25/2016 insomnia 01/25/2016 cough 11/11/2015 insomnia 10/12/2015 headache 09/03/2015 headache 05/19/2015 headache 05/12/2015 she reports she can't sleep headache 01/13/2015 she reports she can't sleep hypertension 12/16/2014 Results Observation Observation Code Item Item Code Result Date Culture Urine [id number] URINE CULTURE SEE NOTES 11/10/2016 Culture Urine [id number] Continued Results 11/10/2016 Urine Culture Ucult Complete [...] Ord15 CALCIUM 9.3 mg/dL 09/29/2016 Free T4 Hhx605 FREE T4 0.99 ng/dL 09/07/2016 Cbc With [...] 91.7 fl 09/07/2016 Cbc With Differential Ord2 [place]% 9.8 % 09/07/2016 Cbc With Differential Ord2 [...] 1.75 K/ul 09/07/2016 Cbc With Differential Ord2 [place] ABS# 0.6 K/ul 09/07/2016 Cbc With Differential Ord2 Eos ABS# 0.1 K/ul 09/07/2016 Cbc With Differential Ord2 Baso ABS# 0.0 K/ul 09/07/2016 Tsh Ord6 hTSH II 1.41 uIU/mL 09/07/2016 Culture Urine [id number] URINE CULTURE SEE NOTES 06/27/2016 Lipid Ord30 CHOL 196 mg/dL 06/22/2016 Lipid Ord30 HDL 63.0 mg/dl 06/22/2016 Lipid Ord30 TRIG 154 mg/dL 06/22/2016 Lipid Ord30 LDL 102 mg/dL 06/22/2016 Lipid Ord30 C/HDL 3.1 Ratio 06/22/2016 Hepatic Qnk115 ALBUMIN 4.2 g/dL 06/22/2016 Hepatic Kkc168 TPRO 7.0 g/dL 06/22/2016 Hepatic Wms511 GLOB 2.8 g/dL 06/22/2016 Hepatic Yvv036 A/G Ratio 1.5 Ratio 06/22/2016 Hepatic Erk182 ALK PHOS 54 U/L 06/22/2016 Hepatic Jym678 ALT(SGPT) 30 U/L 06/22/2016 Hepatic Csy961 AST(SGOT) 24 U/L 06/22/2016 Hepatic Ycz127 BILI T 1.1 mg/dL 06/22/2016 Hepatic Kic654 BILI D 0.2 mg/dL 06/22/2016 Hepatic Naf580 BILI I 0.9 mg/dL 06/22/2016 Comp Metabolic Kpc415 NA 139 mEq/L 06/14/2016 Comp Metabolic Pwi697 K 4.6 mEq/L 06/14/2016 Comp Metabolic Ywm562 CL 108 mEq/L 06/14/2016 Comp Metabolic Adh520 CO2 22.0 mEq/L 06/14/2016 Comp Metabolic Blg679 ANION GAP 14 06/14/2016 Comp Metabolic Sqb375 GLUCOSE 114 mg/dL 06/14/2016 Comp Metabolic Yxe931 Creat 1.2 mg/dL 06/14/2016 Comp Metabolic Qss051 eGFR 48 ml/min/1.73m2 06/14/2016 Comp Metabolic Ebv229 BUN 24 mg/dL 06/14/2016 Comp Metabolic Wkz061 B/C Ratio 20.9 Ratio 06/14/2016 Comp Metabolic Dnk463 CALCIUM 9.9 mg/dL 06/14/2016 Comp Metabolic Ukt259 ALK PHOS 47 U/L 06/14/2016 Comp Metabolic Mge164 AST(SGOT) 28 U/L 06/14/2016 Comp Metabolic Yma127 ALT(SGPT) 32 U/L 06/14/2016 Comp Metabolic Ylc411 BILI T 0.9 mg/dL 06/14/2016 Comp Metabolic Cfs492 ALBUMIN 4.1 g/dL 06/14/2016 Comp Metabolic Dmk935 TPRO 6.9 g/dL 06/14/2016 Comp Metabolic Ctt136 GLOB 2.8 g/dL 06/14/2016 Comp Metabolic Qnw549 A/G Ratio 1.5 Ratio 06/14/2016 Comp Metabolic Gys910 Osmo 282 mOsmo 06/14/2016 Tsh Ord6 hTSH II 1.26 uIU/mL 06/14/2016 Free T4 Dsi495 FREE T4 1.09 ng/dL 06/14/2016 Tsh Ord6 hTSH II 0.28 uIU/mL 02/02/2016 Digoxin Ord9 DIGOXIN 0.7 NG/ML 02/02/2016 Free T4 Ozc395 FREE T4 1.23 ng/dL 02/02/2016 Hepatic Lfd141 ALBUMIN 4.0 g/dL 02/02/2016 Hepatic Zat808 TPRO 7.0 g/dL 02/02/2016 Hepatic Nju497 GLOB 3.0 g/dL 02/02/2016 Hepatic Cff956 A/G Ratio 1.3 Ratio 02/02/2016 Hepatic Ljo932 ALK PHOS 57 U/L 02/02/2016 Hepatic Jur795 ALT(SGPT) 62 U/L 02/02/2016 Hepatic Nfa388 AST(SGOT) 54 U/L 02/02/2016 Hepatic Sfk545 BILI T 0.8 mg/dL 02/02/2016 Hepatic Aec539 BILI D 0.2 mg/dL 02/02/2016 Hepatic Zlj802 BILI I 0.6 mg/dL 02/02/2016 Urine Culture Ucult Preliminary No Growth Day 1 11/25/2015 Urine Culture Ucult Complete No Growth Day 2 11/25/2015 Hepatic Oks671 ALBUMIN 3.9 g/dL 11/11/2015 Hepatic Pqg551 TPRO 7.0 g/dL 11/11/2015 Hepatic Qul152 GLOB 3.1 g/dL 11/11/2015 Hepatic Nmz911 A/G Ratio 1.3 Ratio 11/11/2015 Hepatic Qqq570 ALK PHOS 63 U/L 11/11/2015 Hepatic Mwr606 ALT(SGPT) 107 U/L 11/11/2015 Hepatic Ekr847 AST(SGOT) 101 U/L 11/11/2015 Hepatic Nsh091 BILI T 0.6 mg/dL 11/11/2015 Hepatic Ycj081 BILI D 0.1 mg/dL 11/11/2015 Hepatic Fom840 BILI I 0.5 mg/dL 11/11/2015 Comp Metabolic Xhw132 NA 138 mEq/L 10/29/2015 Comp Metabolic Scb432 K 5.0 mEq/L 10/29/2015 Comp Metabolic Iti401 CL 105 mEq/L 10/29/2015 Comp Metabolic Xnx252 CO2 23.0 mEq/L 10/29/2015 Comp Metabolic Blf311 ANION GAP 15 10/29/2015 Comp Metabolic Cdr207 GLUCOSE 105 mg/dL 10/29/2015 Comp Metabolic Xjw065 Creat 1.0 mg/dL 10/29/2015 Comp Metabolic Ncv826 eGFR 55 ml/min/1.73m2 10/29/2015 Comp Metabolic Gwy591 BUN 20 mg/dL 10/29/2015 Comp Metabolic Bla130 B/C Ratio 19.4 Ratio 10/29/2015 Comp Metabolic Pqh721 CALCIUM 8.8 mg/dL 10/29/2015 Comp Metabolic Grc820 ALK PHOS 56 U/L 10/29/2015 Comp Metabolic Utx228 AST(SGOT) 66 U/L 10/29/2015 Comp Metabolic Vnf965 ALT(SGPT) 78 U/L 10/29/2015 Comp Metabolic Yee197 BILI T 0.7 mg/dL 10/29/2015 Comp Metabolic Okp698 ALBUMIN 3.6 g/dL 10/29/2015 Comp Metabolic Pvr820 TPRO 6.6 g/dL 10/29/2015 Comp Metabolic Gdn424 GLOB 3.0 g/dL 10/29/2015 Comp Metabolic Cuz968 A/G Ratio 1.2 Ratio 10/29/2015 Comp Metabolic Bfa800 Osmo 279 mOsmo 10/29/2015 Comp Metabolic Yci942 NA 136 mEq/L 09/03/2015 Comp Metabolic Gov239 K 4.4 mEq/L 09/03/2015 Comp Metabolic Vnc889 CL 103 mEq/L 09/03/2015 Comp Metabolic Afg711 CO2 24.0 mEq/L 09/03/2015 Comp Metabolic Fzt729 ANION GAP 13 09/03/2015 Comp Metabolic Ses373 GLUCOSE 87 mg/dL 09/03/2015 Comp Metabolic Txs825 Creat 1.1 mg/dL 09/03/2015 Comp Metabolic Tut315 eGFR 53 ml/min/1.73m2 09/03/2015 Comp Metabolic Vtm895 BUN 17 mg/dL 09/03/2015 Comp Metabolic Ppm641 B/C Ratio 16.2 Ratio 09/03/2015 Comp Metabolic Ajc052 CALCIUM 9.0 mg/dL 09/03/2015 Comp Metabolic Wds679 ALK PHOS 55 U/L 09/03/2015 Comp Metabolic Wbk694 AST(SGOT) 83 U/L 09/03/2015 Comp Metabolic Rcn287 ALT(SGPT) 126 U/L 09/03/2015 Comp Metabolic Pjn671 BILI T 0.9 mg/dL 09/03/2015 Comp Metabolic Iam622 ALBUMIN 3.9 g/dL 09/03/2015 Comp Metabolic Kpv214 TPRO 6.8 g/dL 09/03/2015 Comp Metabolic Hoy827 GLOB 2.9 g/dL 09/03/2015 Comp Metabolic Ocz128 A/G Ratio 1.4 Ratio 09/03/2015 Comp Metabolic Grn466 Osmo 273 mOsmo 09/03/2015 Total T3 Ord42 TT3 0.6 ng/ml 07/09/2015 Tsh Ord6 hTSH II 1.62 uIU/mL 07/09/2015 Total T3 Ord42 TT3 0.5 ng/ml 04/02/2015 Free T4 Anu699 FREE T4 1.23 ng/dL 04/02/2015 Tsh Ord6 hTSH II 5.95 uIU/mL 04/02/2015 Review of Systems System Result Effective Dates Constitutional No recent illness 11/02/2016 Constitutional No [...] Result Effective Dates Notes Full Exam - Orthopedics Constitutional general appearance [...] Procedure Codes Date THER/PROPH/DIAG INJ SC/IM CPT-4: 18228Toitbny 12/28/2016 THER/PROPH/DIAG INJ SC/IM CPT-4: 90639Ouiluzr 12/14/2016 THER/PROPH/DIAG INJ SC/IM CPT-4: 95045Ddclnbw 11/24/2016 URINALYSIS NONAUTO W/O SCOPE CPT-4: 31569Hszotqs 11/07/2016 THER/PROPH/DIAG INJ SC/IM CPT-4: 85814Cpyywkt 11/07/2016 THER/PROPH/DIAG INJ SC/IM CPT-4: 70681Okzbfjs 10/24/2016 THER/PROPH/DIAG INJ SC/IM CPT-4: 86444Srstieu 09/29/2016 THER/PROPH/DIAG INJ SC/IM CPT-4: 44695Smgiqql 08/29/2016 THER/PROPH/DIAG INJ SC/IM CPT-4: 55470Xabajay 08/04/2016 THER/PROPH/DIAG INJ SC/IM CPT-4: 99775Ckpcgmv 07/21/2016 THER/PROPH/DIAG INJ SC/IM CPT-4: 34624Lqewefm 07/05/2016 THER/PROPH/DIAG INJ SC/IM CPT-4: 37775Vzmkwan 06/22/2016 URINALYSIS NONAUTO W/O SCOPE CPT-4: 15831Rggpndc 06/22/2016 THER/PROPH/DIAG INJ SC/IM CPT-4: 73487Hmksmxg 06/09/2016 PPPS, SUBSEQ VISIT CPT-4: G9901Miteoxj 05/30/2016 ADMIN PNEUMOCOCCAL VACCINE SNOMED CT: 00323935 CPT-4: C6036Eabhhpg 05/25/2016 Pneumococcal Polysaccharide Vaccine, 23-Valent, Ad CPT-4: 18570Dpkluqa 05/25/2016 THER/PROPH/DIAG INJ SC/IM CPT-4: 59578Djqmzsp 05/25/2016 THER/PROPH/DIAG INJ SC/IM CPT-4: 98449Smlqlzr 05/10/2016 TRIAMCINOLONE ACET INJ NOS CPT-4: J4840Jdbbegj 04/26/2016 VITAMIN B12 INJECTION CPT-4: K7020Lzubkuv 04/26/2016 THER/PROPH/DIAG INJ SC/IM CPT-4: 85125Bsubyha 04/11/2016 THER/PROPH/DIAG INJ SC/IM CPT-4: 65035Nvgznrt 03/31/2016 ADMIN INFLUENZA VIRUS VAC CPT-4: M7337Pqzoxwl 03/15/2016 FLU VACC 4 STEPHANIE [address] Y[address] IM SNOM[address] CT: 83435405 CPT-4: 51519Hswhtxn 03/15/2016 THER/PROPH/DIAG INJ SC/IM CPT-4: 36772Fmccums 02/25/2016 THER/PROPH/DIAG INJ SC/IM CPT-4: 65583Tgexctb 02/02/2016 THER/PROPH/DIAG INJ SC/IM CPT-4: 29317Watcqlh 01/18/2016 VITAMIN B12 INJECTION CPT-4: V5471Vgdziff 12/29/2015 THER/PROPH/DIAG INJ SC/IM CPT-4: 22711Gfprwlx 12/29/2015 THER/PROPH/DIAG INJ SC/IM CPT-4: 35947Yvunwcb 12/08/2015 THER/PROPH/DIAG INJ SC/IM CPT-4: 98032Bwbffnu 11/23/2015 URINALYSIS NONAUTO W/O SCOPE CPT-4: 28786Jpfbsal 11/23/2015 THER/PROPH/DIAG INJ SC/IM CPT-4: 90498Oygyjzt 11/11/2015 THER/PROPH/DIAG INJ SC/IM CPT-4: 07082Lhbxfdy 10/29/2015 THER/PROPH/DIAG INJ SC/IM CPT-4: 63682Ixndurb 10/12/2015 VITAMIN B12 INJECTION CPT-4: K9107Ajfefko 10/12/2015 THER/PROPH/DIAG INJ SC/IM CPT-4: 96633Ifoqlpe 09/29/2015 THER/PROPH/DIAG INJ SC/IM CPT-4: 80100Oqoziep 09/17/2015 THER/PROPH/DIAG INJ SC/IM CPT-4: 57750Zopfwhz 09/03/2015 THER/PROPH/DIAG INJ SC/IM CPT-4: 52044Jrsjaet 08/17/2015 THER/PROPH/DIAG INJ SC/IM CPT-4: 32520Wqetqio 08/06/2015 THER/PROPH/DIAG INJ SC/IM CPT-4: 92004Rvpqlpi 07/22/2015 THER/PROPH/DIAG INJ SC/IM CPT-4: 94668Ulawxkv 07/08/2015 THER/PROPH/DIAG INJ SC/IM CPT-4: 54931Kawpypz 06/23/2015 THER/PROPH/DIAG INJ SC/IM CPT-4: 21360Ovhrcyh 06/08/2015 THER/PROPH/DIAG INJ SC/IM CPT-4: 72840Hgaduit 05/27/2015 DESTRUCT PREMALG LESION CPT-4: 81730Tnprwgi 05/19/2015 DESTRUCT PREMALG LES 2-14 CPT-4: 47206Mwabrbm 05/19/2015 THER/PROPH/DIAG INJ SC/IM CPT-4: 03847Nvefaci 05/12/2015 VITAMIN B12 INJECTION CPT-4: R8370Bllvkuc 05/12/2015 THER/PROPH/DIAG INJ SC/IM CPT-4: 62610Oaoivdg 04/30/2015 VITAMIN B12 INJECTION CPT-4: T5307Eaqppxx 04/30/2015 THER/PROPH/DIAG INJ SC/IM CPT-4: 03524Ggvrzqb 04/16/2015 THER/PROPH/DIAG INJ SC/IM CPT-4: 87089Mloqeni 04/02/2015 VITAMIN B12 INJECTION CPT-4: V6501Mmvxxtv 04/02/2015 THER/PROPH/DIAG INJ SC/IM CPT-4: 39856Dfbwmna 03/18/2015 THER/PROPH/DIAG INJ SC/IM CPT-4: 63582Jadqlju 03/03/2015 THER/PROPH/DIAG INJ SC/IM CPT-4: 97749Utpyirn 02/18/2015 THER/PROPH/DIAG INJ SC/IM CPT-4: 91689Zhprkpo 02/04/2015 VITAMIN B12 INJECTION CPT-4: G2759Ekytmpk 02/04/2015 THER/PROPH/DIAG INJ SC/IM CPT-4: 64223Uhdsynq 01/22/2015 THER/PROPH/DIAG INJ SC/IM CPT-4: 61973Itydmfl 01/08/2015 VITAMIN B12 INJECTION CPT-4: H6266Waiyamz 01/08/2015 THER/PROPH/DIAG INJ SC/IM CPT-4: 07330Iuqurvs 12/25/2014 VITAMIN B12 INJECTION CPT-4: M7203Xlclwod 12/25/2014 THER/PROPH/DIAG INJ SC/IM CPT-4: 63341Klrpvdw 12/10/2014 VITAMIN B12 INJECTION CPT-4: A4121Lzdhpov 12/10/2014 THER/PROPH/DIAG INJ SC/IM CPT-4: 36383Hpmpnal 11/26/2014 VITAMIN B12 INJECTION CPT-4: J1546Pmtnwme 11/26/2014 THER/PROPH/DIAG INJ SC/IM CPT-4: 79020Csopopg 11/12/2014 VITAMIN B12 INJECTION CPT-4: X2376Ouircwx 11/12/2014 THER/PROPH/DIAG INJ SC/IM CPT-4: 44025Luzrsas 10/28/2014 Vital Signs Date Vital 11/02/2016 Blood Pressure 1: 148/78 Code: 8480-6 BMI: 29.7 Code: 20513-9 Heart Rate 1: 87 bpm Height: 5'6" SpO2: 97% Weight: 184 lbs 09/29/2016 Blood Pressure 1: 128/78 Code: 8480-6 BMI: 29.7 Code: 85556-1 Heart Rate 1: 78 bpm Height: 5'6" SpO2: 98% Weight: 184 lbs 07/26/2016 Blood Pressure 1: 138/72 Code: 8480-6 BMI: 30.0 Code: 91244-8 Heart Rate 1: 85 bpm Height: 5'6" SpO2: 97% Weight: 186 lbs 05/30/2016 Blood Pressure 1: 132/76 Code: 8480-6 BMI: 30.0 Code: 18869-5 Heart Rate 1: 80 bpm Height: 5'6" SpO2: 98% Waist Measure (cm): 99 cm Weight: 186 lbs 05/25/2016 Blood Pressure 1: 132/76 Code: 8480-6 BMI: 30.0 Code: 12422-0 Heart Rate 1: 80 bpm Height: 5'6" SpO2: 96% Weight: 186 lbs 02/25/2016 Blood Pressure 1: 110/64 Code: 8480-6 Heart Rate 1: 82 bpm Height: SpO2: 96% Weight: 01/25/2016 Blood Pressure 1: 118/70 Code: 8480-6 BMI: 30.0 Code: 54439-4 Heart Rate 1: 78 bpm Height: 5'6" SpO2: 97% Weight: 186 lbs 11/11/2015 Blood Pressure 1: 128/82 Code: 8480-6 BMI: 29.2 Code: 26601-5 Heart Rate 1: 86 bpm Height: 5'6" SpO2: 96% Temperature: 36.4 (C) / 97.6 (F) Weight: 181 lbs 10/12/2015 Blood Pressure 1: 118/70 Code: 8480-6 BMI: 29.2 Code: 15983-9 Heart Rate 1: 81 bpm Height: 5'6" SpO2: 95% Weight: 181 lbs 09/03/2015 Blood Pressure 1: 138/78 Code: 8480-6 BMI: 29.9 Code: 35369-3 Heart Rate 1: 88 bpm Height: 5'6" SpO2: 97% Weight: 185 lbs 05/19/2015 Blood Pressure 1: 146/78 Code: 8480-6 BMI: 30.0 Code: 64690-8 Heart Rate 1: 66 bpm Height: 5'6" SpO2: 97% Weight: 186 lbs 05/12/2015 Blood Pressure 1: 120/70 Code: 8480-6 BMI: 29.9 Code: 43358-1 Heart Rate 1: 89 bpm Height: 5'6" SpO2: 95% Weight: 185 lbs 01/13/2015 Blood Pressure 1: 140/90 Code: 8480-6 BMI: 30.3 Code: 48477-8 Heart Rate 1: 84 bpm Height: 5'6" SpO2: 95% Weight: 188 lbs 12/16/2014 Blood Pressure 1: 140/82 Code: 8480-6 BMI: 29.5 Code: 83698-9 Heart Rate 1: 86 bpm Height: 5'6" Weight: 183 lbs Functional Status No Functional Status data History of Present Illness Symptom Name Status Result Effective Date Notes back pain Location lumbar-sacral spine 11/02/2016 None [...] data Encounters Encounter Performer Location Codes Date 31027 EST. PATIENT, LEVEL III Diagnosis: Low back pain[ICD10: M54.5] Diagnosis: Pain in thoracic spine[ICD10: M54.6] [facility] CPT- 4: 65484 11/02/2016 [id number]) [id number] EST. PATIENT, LEVEL IV Diagnosis: Essential (primary) hypertension[ICD10: I10] Diagnosis: Other vitamin B12 deficiency anemias[ICD10: D51.8] Diagnosis: Generalized abdominal pain[ICD10: R10.84] [facility] CPT-4: 84743 09/29/2016 ([id number]) 47194 EST. PATIENT, LEVEL IV Diagnosis: Essential (primary) hypertension[ICD10: I10] Yarely Vega MD, [facility] CPT-4: 23377 07/26/2016 ([id number]) 52091 EST. PATIENT, LEVEL IV Diagnosis: Benign lipomatous neoplasm of skin and subcutaneous tissue of right leg[ICD10: D17.23] Diagnosis: Pain in right ankle and joints of right foot[ICD10: M25.571] Diagnosis: Encounter for immunization[ICD10: Z23] Diagnosis: Vitamin B12 deficiency anemia, unspecified[ICD10: D51.9] Yarely Vega MD, [facility] CPT-4: 27338 05/25/2016 48815 EST. PATIENT, LEVEL III Diagnosis: Other chest pain[ICD10: R07.89] Diagnosis: Other vitamin B12 deficiency anemias[ICD10: D51.8] Brianna Vega MD, [facility] CPT-4: 32416 02/25/2016 ([id number]) 80235 EST. 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 PATIENT, LEVEL III Diagnosis: Other vitamin B12 deficiency anemias[ICD10: D51.8] Diagnosis: Acute nasopharyngitis [common cold][ICD10: J00] Diagnosis: Other allergic rhinitis[ICD10: J30.89] Brianna Vega MD, [facility] CPT- 4: 38992 11/11/2015 ([id number]) 08676 EST. PATIENT, LEVEL IV Diagnosis: Essential tremor[ICD10: G25.0] Diagnosis: Chronic fatigue, unspecified[ICD10: R53.82] Diagnosis: Other hypersomnia[ICD10: G47.19] Diagnosis: Essential (primary) hypertension[ICD10: I10] Yarely Vega MD, [facility] CPT-4: 78554 10/12/2015 ([id number] 34913 EST. PATIENT, LEVEL IV Diagnosis: Essential (primary) hypertension[ICD10: I10] Diagnosis: Chronic atrial fibrillation[ICD10: I48.2] Diagnosis: Abnormal levels of other serum enzymes[ICD10: R74.8] Diagnosis: Type 2 diabetes mellitus without complications[ICD10: E11.9] Diagnosis: Vitamin B12 deficiency anemia, unspecified[ICD10: D51.9] Yarely Vega MD, [facility] CPT-4: 18000 09/03/2015 ([id number]) [id number] EST. PATIENT, LEVEL III Diagnosis: Nausea[ICD10: R11.0] Diagnosis: Essential tremor[ICD10: G25.0] Diagnosis: Actinic keratosis[ICD10: L57.0] Yarely Vega MD, [facility] CPT-4: 92247 05/19/2015 ([id number]) 99819 EST. PATIENT, LEVEL IV Diagnosis: Vitamin B12 deficiency anemia, unspecified[ICD10: D51.9] Diagnosis: Chronic atrial fibrillation[ICD10: I48.2] Diagnosis: Headache[ICD10: R51] Diagnosis: Chronic fatigue, unspecified[ICD10: R53.82] Diagnosis: Cervicalgia[ICD10: M54.2] Yarely Vega MD, [facility] CPT-4: 75733 05/12/2015 ([id number]) [id number] EST. PATIENT, LEVEL IV Diagnosis: ESSENTIAL HYPERTENSION[ICD9: 401.9] Diagnosis: Afib[ICD9: 427.31] Diagnosis: Anxiety[ICD9: 300.00] Diagnosis: Insomnia[ICD9: 780.52] Yarely Vega MD, [facility] CPT-4: 04183 01/13/2015 ([id number]) OFFICE VISIT, NEW - LEVEL 4 Diagnosis: Hypothyroidism[ICD9: 244.9] Diagnosis: DIABETES TYPE II[ICD9: 250.00] Diagnosis: ESSENTIAL HYPERTENSION[ICD9: 401.9] Diagnosis: Afib[ICD9: 427.31] Diagnosis: Anxiety[ICD9: 300.00] Diagnosis: B12 deficiency[ICD9: 266.2] Janet Vega MD, [facility] CPT-4: 87719 12/16/2014 Plan of Care Planned Activity Notes Codes Status Date Patient Education: Patient Medication Summary Completed 12/28/2016 [...] improve. 11/02/2016 Appointment: [facility]toole [facility] [phone] [facility] [place] [place] (15 min) Moderate 11/02/2016 Patient Education: Patient Medication Summary Completed 11/02/2016 Appointment: Injection 10/24/2016 Patient Education: Patient Medication Summary Completed 10/24/2016 Visit Plan: Hypertension - well controlled - continue with current medications, continue with no added salt diet. Pt has been encouraged to exercise daily.The pt has been advised to call the office if there are any acute concerns about change in blood pressure readings at home.Hypothyroidism - pt with chronic hypothyroidism, continue with current medication, will monitor pt to signs or symptoms of lack of adequate supplementation. Pt is to continue with current dose of medication unless directed otherwise. Check labs at regular intervals wither q 3 months or q 6 months based on previous levels of control.Abdominal pain - continue with carafate 09/29/2016 Appointment: [phone] [facility] [place] ([place] min) Moderate 09/29/2016 Patient Education: Patient Medication Summary Completed 09/29/2016 Appointment: [facility] [phone] [facility] [place] (15 min) Moderate 09/27/2016 Appointment: [facility] [phone] [facility] [place] (15 min) Moderate 09/20/2016 Appointment: [phone] [facility] [place] (15 min) Moderate 09/20/2016 Patient Education: Patient Medication Summary Completed 09/06/2016 Appointment: [phone] [facility] [place] (15 min) Moderate 08/30/2016 Appointment: [...] the office next week for practitioner to review.The pt is to call for acute concerns. 07/26/2016 Appointment: [phone] [facility] [place] (15 min) Moderate 07/26/2016 Patient Education: [...] risk and to maintain independece in the home.Today we discussed the need for the patient to create paperwork for Advanced directives as well as for the patient to provide this office with a copy of her DOP[employer] paperwork for health care surrogate. 05/30/2016 Appointment: Brianna Otoole WPtel: [phone] [place] [facility] - Annual Wellness Visit 05/30/2016 Patient Education: Patient Medication Summary Completed 05/30/2016 Patient Education: Obesity Completed 05/30/2016 Visit Plan: Hypertension - well controlled - continue with current medications, continue with no added salt diet. Pt has been encouraged to exercise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
--- OUTSIDE RECORDS SUMMARY | 2018-12-05 16:07 | XMS REPORT | CCD ---
Author Author [facility] Organization [facility] Address [address] [place] [address] Phone Care Team Providers Care Uncrater Name Role Phone PP Unavailable CCM Unavailable Summary Purpose Interface Exchange Insurance Providers Payer name Policy type / Coverage type Covered green party ID Effective Begin Date Effective End Date WPS Medicare Part B Medicare Part B [id number] Unknown Unknown Principal Life Insurance Medicare Part B [id number] Unknown Unknown Family history Brother Diagnosis Age At Onset Heart Attack Unknown Mother Diagnosis Age At Onset Hypertension Unknown kidney disease Unknown Stroke Unknown Father Diagnosis Age At Onset Arthritis Unknown Social History Social History Element Codes Description Effective Dates Marital status Unknown Single 12/16/2014 Employment Unknown Retired 12/16/[address]: 1265088 Former smoker 12/16/[address]: 276796926 Never drinks alcohol 12/16/2014 Allergies, Adverse Reactions, [...] (vit B-12) 1,000 mcg/mL injection solution RxNorm: 869126 1 Milliliter(s) Inj 12/28/2016 12/28/2016 Inactive cyanocobalamin (vit B-12) 1,000 mcg/mL injection solution RxNorm: 441919 Milliliter(s) Inj 12/14/2016 12/14/2016 Inactive buspirone 15 mg tablet RxNorm: 536344 1 Tablet(s) PO BID 12/12/2016 06/09/2017 Active hydrocodone 5 mg-acetaminophen 325 mg tablet RxNorm: 902723 1-2 Tablet(s) PO Q6 as needed for pain 12/08/2016 12/12/2016 Inactive Topamax 25 mg tablet RxNorm: 845919 TAKE 1 TABLET BY MOUTH EVERY DAY AT BEDTIME 12/06/2016 04/04/2017 Active Generic For:TOPAMAX 25MG 12/06/2016 9:15:13 AM Lac-Hydrin Five 5 % lotion RxNorm: 048754 1 Gram(s) TOP daily 12/02/2016 01/30/2017 Active cyanocobalamin (vit B-12) 1,000 mcg/mL injection solution RxNorm: 109067 Milliliter(s) Inj 11/24/2016 11/24/2016 Inactive Ceftin 500 mg tablet RxNorm: 463556 1 Tablet(s) PO BID 11/11/2016 11/17/2016 Inactive Cipro 500 mg tablet RxNorm: 639374 1 Tablet(s) PO BID 11/11/2016 11/10/2016 Inactive Cipro 500 mg tablet RxNorm: 242484 1 Tablet(s) PO BID 11/11/2016 11/11/2016 Inactive cyanocobalamin (vit B-12) 1,000 mcg/mL injection solution RxNorm: 799462 1 Milliliter(s) Inj 11/07/2016 11/07/2016 Inactive hydrocodone 5 mg-acetaminophen 325 mg tablet RxNorm: 289440 1-2 Tablet(s) PO Q6 as needed for pain 11/02/2016 11/06/2016 Inactive levothyroxine 125 mcg tablet RxNorm: 681215 Tablet(s) 1 Tablet(s) PO daily 10/24/2016 04/21/2017 Active liothyronine 5 mcg tablet RxNorm: 975523 1 Tablet(s) PO BID 10/24/2016 04/21/2017 Active cyanocobalamin (vit B-12) 1,000 mcg/mL injection solution RxNorm: 368816 Milliliter(s) Inj 10/24/2016 10/24/2016 Inactive hydrocodone 5 mg-acetaminophen 325 mg tablet RxNorm: 649088 1-2 Tablet(s) PO Q6 as needed for pain 10/17/2016 10/21/2016 Inactive Keflex 500 mg capsule RxNorm: 544530 1 Capsule(s) PO TID 10/07/2016 10/06/2016 Inactive Keflex 500 mg capsule RxNorm: 205283 1 Capsule(s) PO TID 10/07/2016 10/16/2016 Inactive Please deliver to patient cyanocobalamin (vit B-12) 1,000 mcg/mL injection solution RxNorm: 625499 1 Milliliter(s) Inj 09/29/2016 09/29/2016 Inactive alprazolam 0.25 mg tablet RxNorm: 599667 1 Tablet(s) PO BID 09/20/2016 03/18/2017 Active Zoloft 50 mg tablet RxNorm: 018474 Tablet(s) TAKE 1 TABLET BY MOUTH DAILY 09/14/2016 03/12/2017 Active Generic For:ZOLOFT 50MG Cozaar 100 mg tablet RxNorm: 606950 1 Tablet(s) PO daily 09/14/2016 No Stop Date Active metoprolol tartrate 50 mg tablet RxNorm: 239080 1/2 Tablet(s) PO BID 09/14/2016 12/12/2016 Inactive liothyronine 5 mcg tablet RxNorm: 407038 1 Tablet(s) PO BID 09/14/2016 10/23/2016 Inactive Calmoseptine 0.44 %-20.6 % topical ointment RxNorm: 042865 1 Application TOP BID and as needed to sore on buttocks 09/07/2016 No Stop Date Active cyanocobalamin (vit B-12) 1,000 mcg/mL injection solution RxNorm: 092611 Milliliter(s) Inj 08/29/2016 08/29/2016 Inactive hydrocodone 5 mg-acetaminophen 325 mg tablet RxNorm: 770851 1-2 Tablet(s) PO Q6 as needed for pain 08/29/2016 10/16/2016 Inactive levothyroxine 125 mcg tablet RxNorm: 128682 1 Tablet(s) PO daily 08/25/2016 10/23/2016 Inactive Topamax 25 mg tablet RxNorm: 998802 TAKE 1 TABLET BY MOUTH EVERY DAY AT BEDTIME 08/17/2016 12/05/2016 Inactive Generic For:TOPAMAX 25MG 08/17/2016 2:14:37 PM hydrocodone 5 mg-acetaminophen 325 mg tablet RxNorm: 681543 1-2 Tablet(s) PO Q6 as needed for pain 08/11/2016 08/28/2016 Inactive hydrocodone 5 mg-acetaminophen 325 mg tablet RxNorm: 278955 1 -2 Tablet(s) PO Q6 as needed for pain 08/11/2016 08/18/2016 Inactive hydrocodone 5 mg-acetaminophen 325 mg tablet RxNorm: 079768 1 Tablet(s) PO Q6 as needed for pain 08/05/2016 08/10/2016 Inactive cyanocobalamin (vit B-12) 1,000 mcg/mL injection solution RxNorm: 714183 Milliliter(s) Inj 08/04/2016 08/04/2016 Inactive Norvasc 10 mg tablet RxNorm: 364761 1 Tablet(s) PO daily 07/26/2016 07/20/2017 Active levothyroxine 125 mcg tablet RxNorm: 818411 1 Tablet(s) PO daily 07/21/2016 10/18/2016 Inactive alprazolam 0.25 mg tablet RxNorm: 521838 1 Tablet(s) PO QHS 07/21/2016 09/19/2016 Inactive Norvasc 5 mg tablet RxNorm: 176593 1 Tablet(s) PO daily 07/21/2016 07/25/2016 Inactive cyanocobalamin (vit B-12) 1,000 mcg/mL injection solution RxNorm: 607572 Milliliter(s) Inj 07/21/2016 07/21/2016 Inactive Zoloft 50 mg tablet RxNorm: 417768 Tablet(s) TAKE 1 TABLET BY MOUTH DAILY 07/21/2016 09/13/2016 Inactive Generic For:ZOLOFT 50MG cyanocobalamin (vit B-12) 1,000 mcg/mL injection solution RxNorm: 224699 1 Milliliter(s) Inj 07/05/2016 07/05/2016 Inactive cyanocobalamin (vit B-12) 1,000 mcg/mL injection solution RxNorm: 334514 1 Milliliter(s) Inj 06/22/2016 06/22/2016 Inactive cyanocobalamin (vit B-12) 1,000 mcg/mL injection solution RxNorm: 605046 Milliliter(s) Inj 06/09/2016 06/09/2016 Inactive Aricept 10 mg tablet RxNorm: 203007 1 Tablet(s) PO daily 05/27/2016 05/21/2017 Active Mobic 15 mg tablet RxNorm: 807808 1 Tablet(s) PO daily 05/27/2016 05/21/2017 Active levothyroxine 125 mcg tablet RxNorm: 033144 1 Tablet(s) PO daily 05/25/2016 07/20/2016 Inactive cyanocobalamin (vit B-12) 1,000 mcg/mL injection solution RxNorm: 310848 1 Milliliter(s) Inj 05/25/2016 05/25/2016 Inactive doxycycline hyclate 100 mg capsule RxNorm: 8736703 1 Capsule(s) PO BID 05/16/2016 05/15/2016 Inactive doxycycline hyclate 100 mg capsule RxNorm: 0540753 1 Capsule(s) PO BID 05/16/2016 05/22/2016 Inactive cyanocobalamin (vit B-12) 1,000 mcg/mL injection solution RxNorm: 176569 Milliliter(s) Inj 05/10/2016 05/10/2016 Inactive cyanocobalamin (vit B-12) 1,000 mcg/mL injection solution RxNorm: 695308 Milliliter(s) Inj 04/26/2016 04/26/2016 Inactive Topamax 25 mg tablet RxNorm: 215283 1 Tablet(s) PO QPM 04/22/2016 08/16/2016 Inactive cyanocobalamin (vit B-12) 1,000 mcg/mL injection solution RxNorm: 677510 Milliliter(s) 1 Milliliter(s) Inj [id number] 04/11/2016 12/31/2017 Active liothyronine 5 mcg tablet RxNorm: 446168 1 Tablet(s) PO BID 04/11/2016 09/13/2016 Inactive cyanocobalamin (vit B-12) 1,000 mcg/mL injection solution RxNorm: 978365 Milliliter(s) Inj 04/11/2016 04/11/2016 Inactive cyanocobalamin (vit B-12) 1,000 mcg/mL injection solution RxNorm: 017025 Milliliter(s) Inj 03/31/2016 03/31/2016 Inactive cyanocobalamin (vit B-12) 1,000 mcg/mL injection solution RxNorm: 228437 1 Milliliter(s) Inj 03/15/2016 03/15/2016 Inactive levothyroxine 125 mcg tablet RxNorm: 948412 1 Tablet(s) PO daily 2016 03/03/2016 Inactive levothyroxine 125 mcg tablet RxNorm: 510034 1 Tablet(s) PO daily 2016 05/24/2016 Inactive cyanocobalamin (vit B-12) 1,000 mcg/mL injection solution RxNorm: 529749 Milliliter(s) Inj 02/25/2016 02/25/2016 Inactive cyanocobalamin (vit B-12) 1,000 mcg/mL injection solution RxNorm: 047418 1 Milliliter(s) Inj 02/02/2016 02/02/2016 Inactive sucralfate 1 gram tablet RxNorm: 214292 1 Tablet(s) PO QHS 01/25/2016 No Stop Date Active amiodarone 200 mg tablet RxNorm: 510787 1/2 Tablet(s) PO BID 01/25/2016 No Stop Date Active cyanocobalamin (vit B-12) 1,000 mcg/mL injection solution RxNorm: 219082 Milliliter(s) Inj 01/18/2016 01/18/2016 Inactive cyanocobalamin (vit B-12) 1,000 mcg/mL injection solution RxNorm: 811506 Milliliter(s) Inj 12/29/2015 12/29/2015 Inactive Topamax 25 mg tablet RxNorm: 324247 1 Tablet(s) PO QPM 12/08/2015 04/05/2016 Inactive cyanocobalamin (vit B-12) 1,000 mcg/mL injection solution RxNorm: 235314 Milliliter(s) Inj 12/08/2015 12/08/2015 Inactive Bactrim DS 800 mg-160 mg tablet RxNorm: 821024 1 Tablet(s) PO BID 11/23/2015 11/22/2015 Inactive cyanocobalamin (vit B-12) 1,000 mcg/mL injection solution RxNorm: 570328 Milliliter(s) Inj 11/23/2015 11/23/2015 Inactive Bactrim DS 800 mg-160 mg tablet RxNorm: 804070 1 Tablet(s) PO BID 11/23/2015 11/29/2015 Inactive cyanocobalamin (vit B-12) 1,000 mcg/mL injection solution RxNorm: 645291 Milliliter(s) Inj 11/11/2015 11/11/2015 Inactive amoxicillin 500 mg capsule RxNorm: 477272 1 Capsule(s) PO TID 11/10/2015 11/19/2015 Inactive Zithromax Z-Henrique 250 mg tablet RxNorm: 549300 1 Tablet(s) PO UD 11/10/2015 01/24/2016 Inactive zpack x 1 amoxicillin 500 mg capsule RxNorm: 429307 1 Capsule(s) PO TID 11/10/2015 11/09/2015 Inactive cyanocobalamin (vit B-12) 1,000 mcg/mL injection solution RxNorm: 530075 1 Milliliter(s) Inj 10/29/2015 10/29/2015 Inactive [place] 3 capsule RxNorm: 1 Capsule(s) PO QAM , 2 Capsules at noon, 1 Capsule QHS 10/13/2015 No Stop Date Active potassium chloride ER 20 mEq tablet,extended release RxNorm: 636685 2 Tablet(s) PO daily at noon 10/13/2015 No Stop Date Active alprazolam 0.25 mg tablet RxNorm: 693070 1 Tablet(s) PO QHS 10/13/2015 07/20/2016 Inactive amiodarone 200 mg tablet RxNorm: 171617 1 Tablet(s) PO BID 10/13/2015 01/24/2016 Inactive cyanocobalamin (vit B-12) 1,000 mcg/mL injection solution RxNorm: 080485 1 Milliliter(s) Inj 10/12/2015 10/12/2015 Inactive Zofran 4 mg tablet RxNorm: 294779 1 Tablet(s) PO daily as needed 10/07/2015 05/24/2016 Inactive Zoloft 50 mg tablet RxNorm: 953363 TAKE 1 TABLET BY MOUTH DAILY 10/05/2015 05/01/2016 Inactive Generic For:ZOLOFT 50MG cyanocobalamin (vit B-12) 1,000 mcg/mL injection solution RxNorm: 013877 1 Milliliter(s) Inj 09/29/2015 09/29/2015 Inactive cyanocobalamin (vit B-12) 1,000 mcg/mL injection solution RxNorm: 502828 1 Milliliter(s) Inj 09/17/2015 09/17/2015 Inactive Norvasc 5 mg tablet RxNorm: 668614 1 Tablet(s) PO daily 09/17/2015 07/20/2016 Inactive liothyronine 5 mcg tablet RxNorm: 117049 1 Tablet(s) PO BID 09/17/2015 03/14/2016 Inactive Zoloft 50 mg tablet RxNorm: 105001 1 Tablet(s) PO daily 09/17/2015 10/04/2015 Inactive buspirone 15 mg tablet RxNorm: 012933 1 Tablet(s) PO BID 09/17/2015 09/10/2016 Inactive buspirone 15 mg tablet RxNorm: 665693 1 Tablet(s) PO BID 09/14/2015 09/16/2015 Inactive Topamax 25 mg tablet RxNorm: 161954 1 Tablet(s) PO QPM 09/03/2015 12/07/2015 Inactive cyanocobalamin (vit B-12) 1,000 mcg/mL injection solution RxNorm: 954345 1 Milliliter(s) Inj 09/03/2015 09/03/2015 Inactive cyanocobalamin (vit B-12) 1,000 mcg/mL injection solution RxNorm: 012616 Milliliter(s) Inj 08/17/2015 08/17/2015 Inactive cyanocobalamin (vit B-12) 1,000 mcg/mL injection solution RxNorm: 625448 Milliliter(s) Inj 08/06/2015 08/06/2015 Inactive levothyroxine 150 mcg tablet RxNorm: 227360 1 Tablet(s) PO daily 07/22/2015 03/03/2016 Inactive Aricept 10 mg tablet RxNorm: 664412 1 Tablet(s) PO daily 07/22/2015 05/26/2016 Inactive Mobic 15 mg tablet RxNorm: 968534 1 Tablet(s) PO daily 07/22/2015 05/26/2016 Inactive cyanocobalamin (vit B-12) 1,000 mcg/mL injection solution RxNorm: 900513 Milliliter(s) Inj 07/22/2015 07/22/2015 Inactive liothyronine 5 mcg tablet RxNorm: 116828 1 Tablet(s) PO BID 07/22/2015 09/16/2015 Inactive cyanocobalamin (vit B-12) 1,000 mcg/mL injection solution RxNorm: 442061 Milliliter(s) Inj 07/08/2015 07/08/2015 Inactive cyanocobalamin (vit B-12) 1,000 mcg/mL injection solution RxNorm: 838296 Milliliter(s) Inj 06/23/2015 06/23/2015 Inactive cyanocobalamin (vit B-12) 1,000 mcg/mL injection solution RxNorm: 773508 1 Milliliter(s) Inj 06/08/2015 06/08/2015 Inactive cyanocobalamin (vit B-12) 1,000 mcg/mL injection solution RxNorm: 787233 Milliliter(s) Inj 05/27/2015 05/27/2015 Inactive Aricept 10 mg tablet RxNorm: 592513 1 Tablet(s) PO daily 05/20/2015 07/21/2015 Inactive Zofran 4 mg tablet RxNorm: 326873 1 Tablet(s) PO daily as needed 05/20/2015 06/18/2015 Inactive alprazolam 0.25 mg tablet RxNorm: 361783 1 Tablet(s) PO BID 05/20/2015 10/12/2015 Inactive Mobic 15 mg tablet RxNorm: 005576 1 Tablet(s) PO daily 05/20/2015 07/21/2015 Inactive tramadol ER 100 mg tablet,extended release 24 hr RxNorm: 380075 1 Tablet(s) PO Q6 as needed 05/13/2015 No Stop Date Active cyanocobalamin (vit B-12) 1,000 mcg/mL injection solution RxNorm: 946909 1 Milliliter(s) Inj 05/12/2015 05/12/2015 Inactive Topamax 25 mg tablet RxNorm: 651105 1 Tablet(s) PO BID (start at one pill at bedtime x 1week then twice daily thereafter) 05/12/2015 09/02/2015 Inactive cyanocobalamin (vit B-12) 1,000 mcg/mL injection kit RxNorm: 646507 kit Inj 04/30/2015 04/30/2015 Inactive cyanocobalamin (vit B-12) 1,000 mcg/mL injection solution RxNorm: 996930 Milliliter(s) Inj 04/16/2015 04/16/2015 Inactive levothyroxine 150 mcg tablet RxNorm: 122432 1 Tablet(s) PO daily 04/08/2015 07/21/2015 Inactive cyanocobalamin (vit B-12) 1,000 mcg/mL injection solution RxNorm: 346986 Milliliter(s) 1 Milliliter(s) Inj [id number] 04/08/2015 04/10/2016 Inactive Cytomel 5 mcg tablet RxNorm: 593771 1 Tablet(s) PO BID 04/08/2015 10/12/2015 Inactive Cytomel 5 mcg tablet RxNorm: 708651 1 Tablet(s) PO BID 04/07/2015 04/07/2015 Inactive Cytomel 5 mcg tablet RxNorm: 367303 1 Tablet(s) PO BID 04/07/2015 04/06/2015 Inactive cyanocobalamin (vit B-12) 1,000 mcg/mL injection solution RxNorm: 438898 Milliliter(s) Inj 04/02/2015 04/02/2015 Inactive cyanocobalamin (vit B-12) 1,000 mcg/mL injection solution RxNorm: 642857 Milliliter(s) Inj 03/18/2015 03/18/2015 Inactive cyanocobalamin (vit B-12) 1,000 mcg/mL injection solution RxNorm: 217501 Milliliter(s) 1 Milliliter(s) Inj [id number] 03/18/2015 04/07/2015 Inactive cyanocobalamin (vit B-12) 1,000 mcg/mL injection solution RxNorm: 199870 1 Milliliter(s) Inj [id number] 03/16/2015 03/17/2015 Inactive cyanocobalamin (vit B-12) 1,000 mcg/mL injection solution RxNorm: 027131 Milliliter(s) Inj 03/03/2015 03/03/2015 Inactive cyanocobalamin (vit B-12) 1,000 mcg/mL injection solution RxNorm: 045666 Milliliter(s) Inj 02/18/2015 02/18/2015 Inactive cyanocobalamin (vit B-12) 1,000 mcg/mL injection solution RxNorm: 458536 Milliliter(s) Inj 02/04/2015 02/04/2015 Inactive cyanocobalamin (vit B-12) 1,000 mcg/mL injection solution RxNorm: 176651 Milliliter(s) Inj 01/22/2015 01/22/2015 Inactive Lac-Hydrin Five 5 % lotion RxNorm: 854841 1 TOP daily 01/13/2015 03/13/2015 Inactive Lac-Hydrin Five 5 % lotion RxNorm: 429086 1 TOP daily 01/13/2015 01/12/2015 Inactive cyanocobalamin (vit B-12) 1,000 mcg/mL injection solution RxNorm: 097356 Milliliter(s) Inj 01/08/2015 01/08/2015 Inactive cyanocobalamin (vit B-12) 1,000 mcg/mL injection solution RxNorm: 409572 Milliliter(s) Inj 12/25/2014 12/25/2014 Inactive levothyroxine 150 mcg tablet RxNorm: 627514 1 Tablet(s) PO daily 12/24/2014 04/07/2015 Inactive tramadol 50 mg tablet RxNorm: 998058 1-2 Tablet(s) PO Q6 as needed 12/17/2014 05/12/2015 Inactive alprazolam 0.25 mg tablet RxNorm: 467591 1 Tablet(s) PO BID 12/17/2014 04/15/2015 Inactive Pradaxa 150 mg capsule RxNorm: 2202336 1 Capsule(s) PO BID 12/16/2014 No Stop Date Active metoprolol tartrate 50 mg tablet RxNorm: 045435 1/2 Tablet(s) PO BID 12/16/2014 09/13/2016 Inactive buspirone 15 mg tablet RxNorm: 272106 1 Tablet(s) PO BID 12/16/2014 09/13/2015 Inactive cyanocobalamin (vit B-12) 1,000 mcg/mL injection solution RxNorm: 474616 1 Milliliter(s) Inj [id number] 12/16/2014 03/15/2015 Inactive cyanocobalamin (vit B-12) 1,000 mcg/mL injection solution RxNorm: 649912 1 Milliliter(s) Inj [id number] 12/16/2014 12/15/2014 Inactive sucralfate 1 gram tablet RxNorm: 860702 Tablet(s) PO QID 12/16/2014 12/10/2015 Inactive cyanocobalamin (vit B-12) 1,000 mcg/mL injection solution RxNorm: 021850 Milliliter(s) Inj 12/10/2014 12/10/2014 Inactive cyanocobalamin (vit B-12) 1,000 mcg/mL injection solution RxNorm: 369049 Milliliter(s) Inj 11/26/2014 11/26/2014 Inactive Zoloft 50 mg tablet RxNorm: 415311 1 Tablet(s) PO daily 11/24/2014 06/21/2015 Inactive Zoloft 50 mg tablet RxNorm: 466205 1 Tablet(s) PO daily 11/24/2014 11/23/2014 Inactive cyanocobalamin (vit B-12) 1,000 mcg/mL injection kit RxNorm: 034222 Milliliter(s) Inj 11/12/2014 11/12/2014 Inactive cyanocobalamin (vit B-12) 1,000 mcg/mL injection solution RxNorm: 086196 Milliliter(s) Inj 10/28/2014 10/28/2014 Inactive [SAVINGS FOR NON-COVERED DRUGS -- BIN:[id number], PCN: [id number], Group: [id number], ID# [id number], Questions: . THIS IS NOT INSURANCE.] promethazine oral RxNorm: 8745 oral No Start Date Active digoxin 125 mcg tablet RxNorm: 643429 Tablet(s) PO every other day No Start Date Active furosemide 40 mg tablet RxNorm: 936356 1 Tablet(s) PO daily No Start Date Active Vitamin D3 5,000 unit tablet RxNorm: 498443 1 Tablet(s) PO daily No Start Date Active erythromycin 250 mg capsule,delayed release RxNorm: 540350 1 Capsule(s) PO AC No Start Date Active Protonix 40 mg tablet,delayed release RxNorm: 531596 1 Tablet(s) PO BID No Start Date Active Cozaar 100 mg tablet RxNorm: 141590 1 Tablet(s) PO daily No Start Date 09/13/2016 Inactive sucralfate 1 gram tablet RxNorm: 754779 Tablet(s) PO QID No Start Date 12/15/2014 Inactive amiodarone 200 mg tablet RxNorm: 043659 2 Tablet(s) PO daily No Start Date 10/13/2015 Inactive buspirone 15 mg tablet RxNorm: 077022 1 Tablet(s) PO daily No Start Date 12/15/2014 Inactive potassium chloride ER 20 mEq tablet,extended release RxNorm: 496806 1 Tablet(s) PO daily No Start Date 10/12/2015 Inactive Prilosec 40 mg capsule,delayed release RxNorm: 179765 1 Capsule(s) PO daily No Start Date 09/02/2015 Inactive [place] 3 capsule RxNorm: Capsule(s) PO No Start Date 10/12/2015 Inactive alprazolam 0.25 mg tablet RxNorm: 349512 Tablet(s) PO QHS No Start Date 12/16/2014 Inactive levothyroxine 125 mcg tablet RxNorm: 024416 1 Tablet(s) PO daily No Start Date 12/23/2014 Inactive liothyronine 5 mcg tablet RxNorm: 387892 1 Tablet(s) PO BID No Start Date 07/21/2015 Inactive Mobic 15 mg tablet RxNorm: 869298 Tablet(s) PO daily No Start Date 05/19/2015 Inactive Norvasc 5 mg tablet RxNorm: 292806 1 Tablet(s) PO daily No Start Date 09/16/2015 Inactive Zofran 4 mg tablet RxNorm: 273271 1 Tablet(s) PO daily as needed No Start Date 05/19/2015 Inactive tramadol 50 mg tablet RxNorm: 351078 1 Tablet(s) PO daily as needed No Start Date 12/16/2014 Inactive amiodarone 200 mg tablet RxNorm: 298519 1 Tablet(s) PO daily No Start Date 10/12/2015 Inactive meclizine 25 mg tablet RxNorm: 897697 Tablet(s) PO as needed No Start Date 05/24/2016 Inactive Pradaxa 150 mg capsule RxNorm: 5508635 1 Capsule(s) PO daily No Start Date 12/15/2014 Inactive metoprolol tartrate 50 mg tablet RxNorm: 330001 1/2 Tablet(s) PO No Start Date 12/15/2014 Inactive Aricept 10 mg tablet RxNorm: 501686 Tablet(s) PO daily No Start Date 05/19/2015 Inactive Calmoseptine 0.44 %-20.6 % topical ointment RxNorm: 185404 1 Application TOP BID and as needed to sore on buttocks No Start Date 09/06/2016 Inactive Zithromax Z-Henrique 250 mg tablet RxNorm: 319226 1 Tablet(s) PO UD No Start Date 11/09/2015 Inactive zpack x 1 Medication Administered Medication Codes Instructions Start Date Status cyanocobalamin (vit B-12) 1,000 mcg/mL injection solution RxNorm: 053414 1Milliliter 12/28/2016 Active cyanocobalamin (vit B-12) 1,000 mcg/mL injection solution RxNorm: 363577 Milliliter 12/14/2016 No longer Active cyanocobalamin (vit B-12) 1,000 mcg/mL injection solution RxNorm: 247982 Milliliter 11/24/2016 No longer Active cyanocobalamin (vit B-12) 1,000 mcg/mL injection solution RxNorm: 853838 1Milliliter 11/07/2016 No longer Active cyanocobalamin (vit B-12) 1,000 mcg/mL injection solution RxNorm: 145307 Milliliter 10/24/2016 No longer Active cyanocobalamin (vit B-12) 1,000 mcg/mL injection solution RxNorm: 087172 1Milliliter 09/29/2016 No longer Active cyanocobalamin (vit B-12) 1,000 mcg/mL injection solution RxNorm: 735483 Milliliter 08/29/2016 No longer Active cyanocobalamin (vit B-12) 1,000 mcg/mL injection solution RxNorm: 123255 Milliliter 08/04/2016 No longer Active cyanocobalamin (vit B-12) 1,000 mcg/mL injection solution RxNorm: 867153 Milliliter 07/21/2016 No longer Active cyanocobalamin (vit B-12) 1,000 mcg/mL injection solution RxNorm: 600404 1Milliliter 07/05/2016 No longer Active cyanocobalamin (vit B-12) 1,000 mcg/mL injection solution RxNorm: 947950 1Milliliter 06/22/2016 No longer Active cyanocobalamin (vit B-12) 1,000 mcg/mL injection solution RxNorm: 257478 Milliliter 06/09/2016 No longer Active cyanocobalamin (vit B-12) 1,000 mcg/mL injection solution RxNorm: 968770 1Milliliter 05/25/2016 No longer Active cyanocobalamin (vit B-12) 1,000 mcg/mL injection solution RxNorm: 640649 Milliliter 05/10/2016 No longer Active cyanocobalamin (vit B-12) 1,000 mcg/mL injection solution RxNorm: 718721 Milliliter 04/26/2016 No longer Active cyanocobalamin (vit B-12) 1,000 mcg/mL injection solution RxNorm: 844786 Milliliter 04/11/2016 No longer Active cyanocobalamin (vit B-12) 1,000 mcg/mL injection solution RxNorm: 147865 Milliliter 03/31/2016 No longer Active cyanocobalamin (vit B-12) 1,000 mcg/mL injection solution RxNorm: 680306 1Milliliter 03/15/2016 No longer Active cyanocobalamin (vit B-12) 1,000 mcg/mL injection solution RxNorm: 150973 Milliliter 02/25/2016 No longer Active cyanocobalamin (vit B-12) 1,000 mcg/mL injection solution RxNorm: 038166 1Milliliter 02/02/2016 No longer Active cyanocobalamin (vit B-12) 1,000 mcg/mL injection solution RxNorm: 015106 Milliliter 01/18/2016 No longer Active cyanocobalamin (vit B-12) 1,000 mcg/mL injection solution RxNorm: 163935 Milliliter 12/29/2015 No longer Active cyanocobalamin (vit B-12) 1,000 mcg/mL injection solution RxNorm: 002599 Milliliter 12/08/2015 No longer Active cyanocobalamin (vit B-12) 1,000 mcg/mL injection solution RxNorm: 356418 Milliliter 11/23/2015 No longer Active cyanocobalamin (vit B-12) 1,000 mcg/mL injection solution RxNorm: 245194 Milliliter 11/11/2015 No longer Active cyanocobalamin (vit B-12) 1,000 mcg/mL injection solution RxNorm: 805909 1Milliliter 10/29/2015 No longer Active cyanocobalamin (vit B-12) 1,000 mcg/mL injection solution RxNorm: 665248 1Milliliter 10/12/2015 No longer Active cyanocobalamin (vit B-12) 1,000 mcg/mL injection solution RxNorm: 103936 1Milliliter 09/29/2015 No longer Active cyanocobalamin (vit B-12) 1,000 mcg/mL injection solution RxNorm: 288816 1Milliliter 09/17/2015 No longer Active cyanocobalamin (vit B-12) 1,000 mcg/mL injection solution RxNorm: 805518 1Milliliter 09/03/2015 No longer Active cyanocobalamin (vit B-12) 1,000 mcg/mL injection solution RxNorm: 264678 Milliliter 08/17/2015 No longer Active cyanocobalamin (vit B-12) 1,000 mcg/mL injection solution RxNorm: 501845 Milliliter 08/06/2015 No longer Active cyanocobalamin (vit B-12) 1,000 mcg/mL injection solution RxNorm: 471838 Milliliter 07/22/2015 No longer Active cyanocobalamin (vit B-12) 1,000 mcg/mL injection solution RxNorm: 708389 Milliliter 07/08/2015 No longer Active cyanocobalamin (vit B-12) 1,000 mcg/mL injection solution RxNorm: 073801 Milliliter 06/23/2015 No longer Active cyanocobalamin (vit B-12) 1,000 mcg/mL injection solution RxNorm: 338824 1[facility] 06/08/2015 No longer Active cyanocobalamin (vit B-12) 1,000 mcg/mL injection solution RxNorm: 170803 [facility] 05/27/2015 No longer Active cyanocobalamin (vit B-12) 1,000 mcg/mL injection solution RxNorm: 028953 1[facility] 05/12/2015 No longer Active cyanocobalamin (vit B-12) 1,000 mcg/mL injection kit RxNorm: [id number] kit 04/30/2015 No longer Active cyanocobalamin (vit B-12) 1,000 mcg/mL injection solution RxNorm: 541707 [facility] 04/16/2015 No longer Active cyanocobalamin (vit B-12) 1,000 mcg/mL injection solution RxNorm: 778187 [facility] 04/02/2015 No longer Active cyanocobalamin (vit B-12) 1,000 mcg/mL injection solution RxNorm: 071788 Milliliter 03/18/2015 No longer Active cyanocobalamin (vit B-12) 1,000 mcg/mL injection solution RxNorm: 826457 Milliliter 03/03/2015 No longer Active cyanocobalamin (vit B-12) 1,000 mcg/mL injection solution RxNorm: 317626 Milliliter 02/18/2015 No longer Active cyanocobalamin (vit B-12) 1,000 mcg/mL injection solution RxNorm: 345079 Milliliter 02/04/2015 No longer Active cyanocobalamin (vit B-12) 1,000 mcg/mL injection solution RxNorm: 613544 Milliliter 01/22/2015 No longer Active cyanocobalamin (vit B-12) 1,000 mcg/mL injection solution RxNorm: 230726 Milliliter 01/08/2015 No longer Active cyanocobalamin (vit B-12) 1,000 mcg/mL injection solution RxNorm: 999995 Milliliter 12/25/2014 No longer Active cyanocobalamin (vit B-12) 1,000 mcg/mL injection solution RxNorm: 775162 Milliliter 12/10/2014 No longer Active cyanocobalamin (vit B-12) 1,000 mcg/mL injection solution RxNorm: 834607 Milliliter 11/26/2014 No longer Active cyanocobalamin (vit B-12) 1,000 mcg/mL injection kit RxNorm: 785438 Milliliter 11/12/2014 No longer Active cyanocobalamin (vit B-12) 1,000 mcg/mL injection solution RxNorm: 667951 Milliliter 10/28/2014 No longer Active Immunizations Vaccine [...] Item Item Code Result Date Culture Urine [id number] URINE CULTURE SEE NOTES 11/10/2016 Culture Urine [id number] Continued Results 11/10/2016 Urine Culture Ucult Complete [...] Ord15 CALCIUM 9.3 mg/dL 09/29/2016 Free T4 Jyu368 FREE T4 0.99 ng/dL 09/07/2016 Cbc With [...] 91.7 fl 09/07/2016 Cbc With Differential Ord2 [place]% 9.8 % 09/07/2016 Cbc With Differential Ord2 [...] 1.75 K/ul 09/07/2016 Cbc With Differential Ord2 [place] ABS# 0.6 K/ul 09/07/2016 Cbc With Differential Ord2 Eos ABS# 0.1 K/ul 09/07/2016 Cbc With Differential Ord2 Baso ABS# 0.0 K/ul 09/07/2016 Tsh Ord6 hTSH II 1.41 uIU/mL 09/07/2016 Culture Urine [id number] URINE CULTURE SEE NOTES 06/27/2016 Lipid Ord30 CHOL 196 mg/dL 06/22/2016 Lipid Ord30 HDL 63.0 mg/dl 06/22/2016 Lipid Ord30 TRIG 154 mg/dL 06/22/2016 Lipid Ord30 LDL 102 mg/dL 06/22/2016 Lipid Ord30 C/HDL 3.1 Ratio 06/22/2016 Hepatic Xeb888 ALBUMIN 4.2 g/dL 06/22/2016 Hepatic Kqo248 TPRO 7.0 g/dL 06/22/2016 Hepatic Unv531 GLOB 2.8 g/dL 06/22/2016 Hepatic Mzp876 A/G Ratio 1.5 Ratio 06/22/2016 Hepatic Urt158 ALK PHOS 54 U/L 06/22/2016 Hepatic Ems240 ALT(SGPT) 30 U/L 06/22/2016 Hepatic Hiy897 AST(SGOT) 24 U/L 06/22/2016 Hepatic Vox791 BILI T 1.1 mg/dL 06/22/2016 Hepatic Yxi928 BILI D 0.2 mg/dL 06/22/2016 Hepatic Dfe000 BILI I 0.9 mg/dL 06/22/2016 Comp Metabolic Weo664 NA 139 mEq/L 06/14/2016 Comp Metabolic Lrr426 K 4.6 mEq/L 06/14/2016 Comp Metabolic Vkt312 CL 108 mEq/L 06/14/2016 Comp Metabolic Fhh670 CO2 22.0 mEq/L 06/14/2016 Comp Metabolic Azf845 ANION GAP 14 06/14/2016 Comp Metabolic Ztz098 GLUCOSE 114 mg/dL 06/14/2016 Comp Metabolic Cia447 Creat 1.2 mg/dL 06/14/2016 Comp Metabolic Oyt121 eGFR 48 ml/min/1.73m2 06/14/2016 Comp Metabolic Vds385 BUN 24 mg/dL 06/14/2016 Comp Metabolic Ifo530 B/C Ratio 20.9 Ratio 06/14/2016 Comp Metabolic Ywd065 CALCIUM 9.9 mg/dL 06/14/2016 Comp Metabolic Ofg171 ALK PHOS 47 U/L 06/14/2016 Comp Metabolic Gno495 AST(SGOT) 28 U/L 06/14/2016 Comp Metabolic Igp070 ALT(SGPT) 32 U/L 06/14/2016 Comp Metabolic Liq525 BILI T 0.9 mg/dL 06/14/2016 Comp Metabolic Hcn129 ALBUMIN 4.1 g/dL 06/14/2016 Comp Metabolic Qoz850 TPRO 6.9 g/dL 06/14/2016 Comp Metabolic Tei523 GLOB 2.8 g/dL 06/14/2016 Comp Metabolic Qrl668 A/G Ratio 1.5 Ratio 06/14/2016 Comp Metabolic Axa884 Osmo 282 mOsmo 06/14/2016 Tsh Ord6 hTSH II 1.26 uIU/mL 06/14/2016 Free T4 Axj406 FREE T4 1.09 ng/dL 06/14/2016 Tsh Ord6 hTSH II 0.28 uIU/mL 02/02/2016 Digoxin Ord9 DIGOXIN 0.7 NG/ML 02/02/2016 Free T4 Wvk726 FREE T4 1.23 ng/dL 02/02/2016 Hepatic Hxu980 ALBUMIN 4.0 g/dL 02/02/2016 Hepatic Nky178 TPRO 7.0 g/dL 02/02/2016 Hepatic Ukr390 GLOB 3.0 g/dL 02/02/2016 Hepatic Aek338 A/G Ratio 1.3 Ratio 02/02/2016 Hepatic Kwj526 ALK PHOS 57 U/L 02/02/2016 Hepatic Ecm384 ALT(SGPT) 62 U/L 02/02/2016 Hepatic Xrz356 AST(SGOT) 54 U/L 02/02/2016 Hepatic Uuk612 BILI T 0.8 mg/dL 02/02/2016 Hepatic Fjn694 BILI D 0.2 mg/dL 02/02/2016 Hepatic Sfp110 BILI I 0.6 mg/dL 02/02/2016 Urine Culture Ucult Preliminary No Growth Day 1 11/25/2015 Urine Culture Ucult Complete No Growth Day 2 11/25/2015 Hepatic Lqu404 ALBUMIN 3.9 g/dL 11/11/2015 Hepatic Pvr460 TPRO 7.0 g/dL 11/11/2015 Hepatic Yzt789 GLOB 3.1 g/dL 11/11/2015 Hepatic Tvs168 A/G Ratio 1.3 Ratio 11/11/2015 Hepatic Ooi058 ALK PHOS 63 U/L 11/11/2015 Hepatic Eml010 ALT(SGPT) 107 U/L 11/11/2015 Hepatic Ndp123 AST(SGOT) 101 U/L 11/11/2015 Hepatic Vzl411 BILI T 0.6 mg/dL 11/11/2015 Hepatic Fcn532 BILI D 0.1 mg/dL 11/11/2015 Hepatic Scr561 BILI I 0.5 mg/dL 11/11/2015 Comp Metabolic Qoi657 NA 138 mEq/L 10/29/2015 Comp Metabolic Btp127 K 5.0 mEq/L 10/29/2015 Comp Metabolic Bog995 CL 105 mEq/L 10/29/2015 Comp Metabolic Vxp499 CO2 23.0 mEq/L 10/29/2015 Comp Metabolic Gao455 ANION GAP 15 10/29/2015 Comp Metabolic Ixf566 GLUCOSE 105 mg/dL 10/29/2015 Comp Metabolic Wuc147 Creat 1.0 mg/dL 10/29/2015 Comp Metabolic Gjt467 eGFR 55 ml/min/1.73m2 10/29/2015 Comp Metabolic Mha278 BUN 20 mg/dL 10/29/2015 Comp Metabolic Uma816 B/C Ratio 19.4 Ratio 10/29/2015 Comp Metabolic Zeq087 CALCIUM 8.8 mg/dL 10/29/2015 Comp Metabolic Qbx015 ALK PHOS 56 U/L 10/29/2015 Comp Metabolic Krq442 AST(SGOT) 66 U/L 10/29/2015 Comp Metabolic Lmy017 ALT(SGPT) 78 U/L 10/29/2015 Comp Metabolic Vak093 BILI T 0.7 mg/dL 10/29/2015 Comp Metabolic Upl363 ALBUMIN 3.6 g/dL 10/29/2015 Comp Metabolic Ify958 TPRO 6.6 g/dL 10/29/2015 Comp Metabolic Plt533 GLOB 3.0 g/dL 10/29/2015 Comp Metabolic Ymu398 A/G Ratio 1.2 Ratio 10/29/2015 Comp Metabolic Jgu726 Osmo 279 mOsmo 10/29/2015 Comp Metabolic Kmc637 NA 136 mEq/L 09/03/2015 Comp Metabolic Vox050 K 4.4 mEq/L 09/03/2015 Comp Metabolic Acq714 CL 103 mEq/L 09/03/2015 Comp Metabolic Svo881 CO2 24.0 mEq/L 09/03/2015 Comp Metabolic Yrd469 ANION GAP 13 09/03/2015 Comp Metabolic Vct095 GLUCOSE 87 mg/dL 09/03/2015 Comp Metabolic Ncz216 Creat 1.1 mg/dL 09/03/2015 Comp Metabolic Hfe346 eGFR 53 ml/min/1.73m2 09/03/2015 Comp Metabolic Xua966 BUN 17 mg/dL 09/03/2015 Comp Metabolic Gzy327 B/C Ratio 16.2 Ratio 09/03/2015 Comp Metabolic Gpt572 CALCIUM 9.0 mg/dL 09/03/2015 Comp Metabolic Bqu619 ALK PHOS 55 U/L 09/03/2015 Comp Metabolic Etl835 AST(SGOT) 83 U/L 09/03/2015 Comp Metabolic Aul766 ALT(SGPT) 126 U/L 09/03/2015 Comp Metabolic Vib358 BILI T 0.9 mg/dL 09/03/2015 Comp Metabolic Gyn868 ALBUMIN 3.9 g/dL 09/03/2015 Comp Metabolic Nws386 TPRO 6.8 g/dL 09/03/2015 Comp Metabolic Cln028 GLOB 2.9 g/dL 09/03/2015 Comp Metabolic Abd880 A/G Ratio 1.4 Ratio 09/03/2015 Comp Metabolic Txz096 Osmo 273 mOsmo 09/03/2015 Total T3 Ord42 TT3 0.6 ng/ml 07/09/2015 Tsh Ord6 hTSH II 1.62 uIU/mL 07/09/2015 Total T3 Ord42 TT3 0.5 ng/ml 04/02/2015 Free T4 Wmn336 FREE T4 1.23 ng/dL 04/02/2015 Tsh Ord6 [...] Procedure Codes Date THER/PROPH/DIAG INJ SC/IM CPT-4: 81759Qdxfvmu 12/28/2016 THER/PROPH/DIAG INJ SC/IM CPT-4: 80204Aadzror 12/14/2016 THER/PROPH/DIAG INJ SC/IM CPT-4: 42042Fzrdauj 11/24/2016 URINALYSIS NONAUTO W/O SCOPE CPT-4: 97645Wqicobg 11/07/2016 THER/PROPH/DIAG INJ SC/IM CPT-4: 10886Apsqrgb 11/07/2016 THER/PROPH/DIAG INJ SC/IM CPT-4: 11227Wddundv 10/24/2016 THER/PROPH/DIAG INJ SC/IM CPT-4: 45338Oqcxyjq 09/29/2016 THER/PROPH/DIAG INJ SC/IM CPT-4: 42288Kyblkkr 08/29/2016 THER/PROPH/DIAG INJ SC/IM CPT-4: 06345Jvfrjoo 08/04/2016 THER/PROPH/DIAG INJ SC/IM CPT-4: 65948Vlwoqgl 07/21/2016 THER/PROPH/DIAG INJ SC/IM CPT-4: 77234Oohbjgd 07/05/2016 THER/PROPH/DIAG INJ SC/IM CPT-4: 29101Rxrciko 06/22/2016 URINALYSIS NONAUTO W/O SCOPE CPT-4: 21542Nbkbzqy 06/22/2016 THER/PROPH/DIAG INJ SC/IM CPT-4: 75232Xdryzlx 06/09/2016 PPPS, SUBSEQ VISIT CPT-4: J1658Rtgfgqz 05/30/2016 ADMIN PNEUMOCOCCAL VACCINE SNOMED CT: 38190167 CPT-4: H2987Syfsujr 05/25/2016 Pneumococcal Polysaccharide Vaccine, 23-Valent, Ad CPT-4: 84327Onadskb 05/25/2016 THER/PROPH/DIAG INJ SC/IM CPT-4: 03187Hjlgnrt 05/25/2016 THER/PROPH/DIAG INJ SC/IM CPT-4: 40881Hkrkqks 05/10/2016 TRIAMCINOLONE ACET INJ NOS CPT-4: J4483Plvpfqd 04/26/2016 VITAMIN B12 INJECTION CPT-4: E4643Srchfxz 04/26/2016 THER/PROPH/DIAG INJ SC/IM CPT-4: 21629Eugezyi 04/11/2016 THER/PROPH/DIAG INJ SC/IM CPT-4: 00421Gpjihgt 03/31/2016 ADMIN INFLUENZA VIRUS VAC CPT-4: R6768Flkuaen 03/15/2016 FLU VACC 4 STEPHANIE [address] YRS PLUS IM SNOMED CT: 22091984 CPT-4: 23852Jtlgyxc 03/15/2016 THER/PROPH/DIAG INJ SC/IM CPT-4: 28247Slhosdf 02/25/2016 THER/PROPH/DIAG INJ SC/IM CPT-4: 21498Fvaeozq 02/02/2016 THER/PROPH/DIAG INJ SC/IM CPT-4: 87081Uyjfrly 01/18/2016 VITAMIN B12 INJECTION CPT-4: F0503Qqllwdy 12/29/2015 THER/PROPH/DIAG INJ SC/IM CPT-4: 48972Akgdasr 12/29/2015 THER/PROPH/DIAG INJ SC/IM CPT-4: 99053Qmiqjkv 12/08/2015 THER/PROPH/DIAG INJ SC/IM CPT-4: 32244Oxfovuj 11/23/2015 URINALYSIS NONAUTO W/O SCOPE CPT-4: 37188Luwgifx 11/23/2015 THER/PROPH/DIAG INJ SC/IM CPT-4: 11308Qkcczep 11/11/2015 THER/PROPH/DIAG INJ SC/IM CPT-4: 66551Cdtlozw 10/29/2015 THER/PROPH/DIAG INJ SC/IM CPT-4: 69454Wponqzd 10/12/2015 VITAMIN B12 INJECTION CPT-4: L6846Uvafpdw 10/12/2015 THER/PROPH/DIAG INJ SC/IM CPT-4: 47201Hgfdfvu 09/29/2015 THER/PROPH/DIAG INJ SC/IM CPT-4: 84692Vccpkfp 09/17/2015 THER/PROPH/DIAG INJ SC/IM CPT-4: 00942Qugnuyz 09/03/2015 THER/PROPH/DIAG INJ SC/IM CPT-4: 70171Nijkfio 08/17/2015 THER/PROPH/DIAG INJ SC/IM CPT-4: 39428Wtwlxhj 08/06/2015 THER/PROPH/DIAG INJ SC/IM CPT-4: 75195Uozlzel 07/22/2015 THER/PROPH/DIAG INJ SC/IM CPT-4: 16885Mhzishi 07/08/2015 THER/PROPH/DIAG INJ SC/IM CPT-4: 77206Jqgcqlp 06/23/2015 THER/PROPH/DIAG INJ SC/IM CPT-4: 31022Rexlmls 06/08/2015 THER/PROPH/DIAG INJ SC/IM CPT-4: 60581Adzwpsa 05/27/2015 DESTRUCT PREMALG LESION CPT-4: 47851Ojmcfuq 05/19/2015 DESTRUCT PREMALG LES 2-14 CPT-4: 36382Fjutfzu 05/19/2015 THER/PROPH/DIAG INJ SC/IM CPT-4: 47324Gycldzu 05/12/2015 VITAMIN B12 INJECTION CPT-4: L3671Pahnyfd 05/12/2015 THER/PROPH/DIAG INJ SC/IM CPT-4: 60440Zmpzwsr 04/30/2015 VITAMIN B12 INJECTION CPT-4: Q2406Jlhucrm 04/30/2015 THER/PROPH/DIAG INJ SC/IM CPT-4: 09571Mzjzpdx 04/16/2015 THER/PROPH/DIAG INJ SC/IM CPT-4: 56173Lsmwbux 04/02/2015 VITAMIN B12 INJECTION CPT-4: K7806Crzfwit 04/02/2015 THER/PROPH/DIAG INJ SC/IM CPT-4: 09185Dimjaah 03/18/2015 THER/PROPH/DIAG INJ SC/IM CPT-4: 19333Aiuilda 03/03/2015 THER/PROPH/DIAG INJ SC/IM CPT-4: 96179Lglluda 02/18/2015 THER/PROPH/DIAG INJ SC/IM CPT-4: 06772Hnwbxfd 02/04/2015 VITAMIN B12 INJECTION CPT-4: K1434Indrwwg 02/04/2015 THER/PROPH/DIAG INJ SC/IM CPT-4: 50016Yrtdfjb 01/22/2015 THER/PROPH/DIAG INJ SC/IM CPT-4: 11896Jcdwmkq 01/08/2015 VITAMIN B12 INJECTION CPT-4: R6419Jbareeq 01/08/2015 THER/PROPH/DIAG INJ SC/IM CPT-4: 51588Xnhkzhx 12/25/2014 VITAMIN B12 INJECTION CPT-4: P5715Bmhjthy 12/25/2014 THER/PROPH/DIAG INJ SC/IM CPT-4: 07329Txbbzoz 12/10/2014 VITAMIN B12 INJECTION CPT-4: T0056Thceqpz 12/10/2014 THER/PROPH/DIAG INJ SC/IM CPT-4: 34891Hliwmhl 11/26/2014 VITAMIN B12 INJECTION CPT-4: D7750Lkxnrwn 11/26/2014 THER/PROPH/DIAG INJ SC/IM CPT-4: 53657Ezdturl 11/12/2014 VITAMIN B12 INJECTION CPT-4: W1521Zuoihwx 11/12/2014 THER/PROPH/DIAG INJ SC/IM CPT-4: 86842Hpgnptd 10/28/2014 Vital Signs Date Vital 11/02/2016 Blood Pressure 1: 148/78 Code: 8480-6 BMI: 29.7 Code: 86097-4 Heart Rate 1: 87 bpm Height: 5'6" SpO2: 97% Weight: 184 lbs 09/29/2016 Blood Pressure 1: 128/78 Code: 8480-6 BMI: 29.7 Code: 83447-5 Heart Rate 1: 78 bpm Height: 5'6" SpO2: 98% Weight: 184 lbs 07/26/2016 Blood Pressure 1: 138/72 Code: 8480-6 BMI: 30.0 Code: 30199-8 Heart Rate 1: 85 bpm Height: 5'6" SpO2: 97% Weight: 186 lbs 05/30/2016 Blood Pressure 1: 132/76 Code: 8480-6 BMI: 30.0 Code: 53260-6 Heart Rate 1: 80 bpm Height: 5'6" SpO2: 98% Waist Measure (cm): 99 cm Weight: 186 lbs 05/25/2016 Blood Pressure 1: 132/76 Code: 8480-6 BMI: 30.0 Code: 72679-7 Heart Rate 1: 80 bpm Height: 5'6" SpO2: 96% Weight: 186 lbs 02/25/2016 Blood Pressure 1: 110/64 Code: 8480-6 Heart Rate 1: 82 bpm Height: SpO2: 96% Weight: 01/25/2016 Blood Pressure 1: 118/70 Code: 8480-6 BMI: 30.0 Code: 78754-4 Heart Rate 1: 78 bpm Height: 5'6" SpO2: 97% Weight: 186 lbs 11/11/2015 Blood Pressure 1: 128/82 Code: 8480-6 BMI: 29.2 Code: 24122-9 Heart Rate 1: 86 bpm Height: 5'6" SpO2: 96% Temperature: 36.4 (C) / 97.6 (F) Weight: 181 lbs 10/12/2015 Blood Pressure 1: 118/70 Code: 8480-6 BMI: 29.2 Code: 72944-0 Heart Rate 1: 81 bpm Height: 5'6" SpO2: 95% Weight: 181 lbs 09/03/2015 Blood Pressure 1: 138/78 Code: 8480-6 BMI: 29.9 Code: 28482-8 Heart Rate 1: 88 bpm Height: 5'6" SpO2: 97% Weight: 185 lbs 05/19/2015 Blood Pressure 1: 146/78 Code: 8480-6 BMI: 30.0 Code: 44794-8 Heart Rate 1: 66 bpm Height: 5'6" SpO2: 97% Weight: 186 lbs 05/12/2015 Blood Pressure 1: 120/70 Code: 8480-6 BMI: 29.9 Code: 56293-1 Heart Rate 1: 89 bpm Height: 5'6" SpO2: 95% Weight: 185 lbs 01/13/2015 Blood Pressure 1: 140/90 Code: 8480-6 BMI: 30.3 Code: 72178-8 Heart Rate 1: 84 bpm Height: 5'6" SpO2: 95% Weight: 188 lbs 12/16/2014 Blood Pressure 1: 140/82 Code: 8480-6 BMI: 29.5 Code: 85786-8 Heart Rate 1: 86 bpm Height: 5'6" [...] data Encounters Encounter Performer Location Codes Date [id number] EST. PATIENT, LEVEL III Diagnosis: Low back pain[ICD10: M54.5] Diagnosis: Pain in thoracic spine[ICD10: M54.6] [facility] CPT- 4: 40818 11/02/2016 [id number]) 97029 EST. PATIENT, LEVEL IV Diagnosis: Essential (primary) hypertension[ICD10: I10] Diagnosis: Other vitamin B12 deficiency anemias[ICD10: D51.8] Diagnosis: Generalized abdominal pain[ICD10: R10.84] [facility] CPT-4: 00874 09/29/2016 ([id number]) 02809 EST. PATIENT, LEVEL IV Diagnosis: Essential (primary) hypertension[ICD10: I10] Yarely Vega MD, [facility] CPT-4: 45857 07/26/2016 ([id number]) 92865 EST. PATIENT, LEVEL IV Diagnosis: Benign lipomatous neoplasm of skin and subcutaneous tissue of right leg[ICD10: D17.23] Diagnosis: Pain in right ankle and joints of right foot[ICD10: M25.571] Diagnosis: Encounter for immunization[ICD10: Z23] Diagnosis: Vitamin B12 deficiency anemia, unspecified[ICD10: D51.9] Yarely Vega MD, [facility] CPT-4: 09810 05/25/2016 [id number] EST. PATIENT, LEVEL III Diagnosis: Other chest pain[ICD10: R07.89] Diagnosis: Other vitamin B12 deficiency anemias[ICD10: D51.8] Brianna Vega MD, [facility] CPT-4: 24323 02/25/2016 ([id number]) 91207 EST. 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 PATIENT, LEVEL III Diagnosis: Other vitamin B12 deficiency anemias[ICD10: D51.8] Diagnosis: Acute nasopharyngitis [common cold][ICD10: J00] Diagnosis: Other allergic rhinitis[ICD10: J30.89] Brianna Vega MD, [facility] CPT- 4: 44132 11/11/2015 ([id number]) 79986 EST. PATIENT, LEVEL IV Diagnosis: Essential tremor[ICD10: G25.0] Diagnosis: Chronic fatigue, unspecified[ICD10: R53.82] Diagnosis: Other hypersomnia[ICD10: G47.19] Diagnosis: Essential (primary) hypertension[ICD10: I10] Yarely Vega MD, [facility] CPT-4: 00329 10/12/2015 ([id number] 51417 EST. PATIENT, LEVEL IV Diagnosis: Essential (primary) hypertension[ICD10: I10] Diagnosis: Chronic atrial fibrillation[ICD10: I48.2] Diagnosis: Abnormal levels of other serum enzymes[ICD10: R74.8] Diagnosis: Type 2 diabetes mellitus without complications[ICD10: E11.9] Diagnosis: Vitamin B12 deficiency anemia, unspecified[ICD10: D51.9] Yarely Vega MD, [facility] CPT-4: 39221 09/03/2015 ([id number]) 84220 EST. PATIENT, LEVEL III Diagnosis: Nausea[ICD10: R11.0] Diagnosis: Essential tremor[ICD10: G25.0] Diagnosis: Actinic keratosis[ICD10: L57.0] Yarely Vega MD, [facility] CPT-4: 29890 05/19/2015 ([id number]) 51004 EST. PATIENT, LEVEL IV Diagnosis: Vitamin B12 deficiency anemia, unspecified[ICD10: D51.9] Diagnosis: Chronic atrial fibrillation[ICD10: I48.2] Diagnosis: Headache[ICD10: R51] Diagnosis: Chronic fatigue, unspecified[ICD10: R53.82] Diagnosis: Cervicalgia[ICD10: M54.2] Yarely Vega MD, [facility] CPT-4: 12950 05/12/2015 ([id number]) 56901 EST. PATIENT, LEVEL IV Diagnosis: ESSENTIAL HYPERTENSION[ICD9: 401.9] Diagnosis: Afib[ICD9: 427.31] Diagnosis: Anxiety[ICD9: 300.00] Diagnosis: Insomnia[ICD9: 780.52] Yarely Vega MD, [facility] CPT-4: 90979 01/13/2015 ([id number]) OFFICE VISIT, NEW - LEVEL 4 Diagnosis: Hypothyroidism[ICD9: 244.9] Diagnosis: DIABETES TYPE II[ICD9: 250.00] Diagnosis: ESSENTIAL HYPERTENSION[ICD9: 401.9] Diagnosis: Afib[ICD9: 427.31] Diagnosis: Anxiety[ICD9: 300.00] Diagnosis: B12 deficiency[ICD9: 266.2] Janet Vega MD, [facility] CPT-4: 28276 12/16/2014 Plan of Care Planned Activity Notes [...] improve. 11/02/2016 Appointment[phone] [place] (15 min) Moderate 11/02/2016 Patient Education: [...] App[facility]ment[phone] [place] ([facility] min) Moderate 09/29/2016 Patient Education: Patient Medication Summary Completed 09/29/2016 Appointment: [phone] [place] (15 min) Moderate 09/27/2016 Appointment: [phone] [place] (15 min) Moderate 09/20/2016 Appointment: [phone] [place] (15 min) Moderate 09/20/2016 Patient Education: Patient Medication Summary Completed 09/06/2016 Appointment: [phone] [facility] [place] (15 min) Moderate 08/30/2016 Appointment: [...] acute concerns. 07/26/2016 Appointment: Gary [phone] [place] (15 min) Moderate 07/26/2016 Patient [...] surrogate. 05/30/2016 App[facility]: [phone] [place] [facility] - Annual Wellness Visit 05/30/2016 Patient [...] bedtime 05/25/2016 Appointment: [phone] (15 min) Moderate 05/25/2016 Patient Education: Patient Medication Summary Completed 05/25/2016 Patient Education: Obesity Completed 05/25/2016 Care Plan: Referral Order SNOMED-CT : [id number] Pending 05/25/2016 Appointment: Injection 05/10/2016 Patient Education: Patient Medication Summary Completed 05/10/2016 Appointment: Injection 04/26/2016 Patient Education: Patient Medication Summary Completed 04/26/2016 Appointment: Injection 04/11/2016 Patient Education: Patient Medication Summary Completed 04/11/2016 Appointment: Injection 03/31/2016 Patient Education: Patient Medication Summary Completed 03/31/2016 Patient Education: Patient Medication Summary Completed 03/22/2016 Care Plan: [facility]CREENING[facility]AMMOGRAPHYDIGITAL [facility] : 72556-7 Pending 03/22/2016 Appointment: Injection 03/15/2016 Patient Education: [...] concerns. 02/25/2016 Appointment: [phone] [place] (15 min) Moderate 02/25/2016 Patient Education: Patient [...] the patients recent sleep study - recommended [place] home patient eval of pt - nocturnal [...] the patients recent sleep study - recommended [place] home patient eval of pt - nocturnal [...] case with Faiza's daughter who had left [facility]. She is interested in looking at assisted living facilities for her mom as Faiza's family is for assisted living placement sooner rather than later. 10/12/2015 Appointment: [phone] (15 min) Moderate 10/12/2015 Patient Education: [...] Completed 08/17/2015 Appointment: [facility]ega [facility]el[phone] [facility] (15 min) Moderate 08/11/2015 Appointment: Injection [...] x 2 05/19/2015 Appointment: Yarely Vega [facility]: [facility] (30 min) [facility] 05/19/2015 Patient Education: Patient Medication Summary Completed [...] prn alprazolam. 01/13/2015 Appointment: [phone] [facility] (15 min) Moderate 01/13/2015 Patient Education: Patient [...] medications. 12/16/2014 Appointment: [phone] [phone] [place] ([place] New Patient 12/16/2014 Patient Education: [...] case with Faiza's daughter who had left [facility]. She is interested in looking at [...] the patients recent sleep study - recommended [place] home patient eval of pt - nocturnal [...] the patients recent sleep study - recommended [place] home patient eval of pt - nocturnal [...]
--- OUTSIDE RECORDS SUMMARY | 2018-12-05 16:11 | XMS REPORT | CCD ---
Author Author [facility] Organization [facility] Address [address] [place] [address] Phone Care Team Providers Care Slasher Name Role Phone PP Unavailable CCM Unavailable Summary Purpose Interface Exchange Insurance Providers Payer name Policy type / Coverage type Covered republican ID Effective Begin Date Effective End Date WPS Medicare Part B Medicare Part B [id number] Unknown Unknown Principal Life Insurance Medicare Part B [id number] Unknown Unknown Family history Brother Diagnosis Age At Onset Heart Attack Unknown Mother Diagnosis Age At Onset Hypertension Unknown kidney disease Unknown Stroke Unknown Father Diagnosis Age At Onset Arthritis Unknown Social History Social History Element Codes Description Effective Dates Marital status Unknown Single 12/16/2014 Employment Unknown Retired 12/16/[address]: 7719678 Former smoker 12/16/[address]: 446469284 Never drinks alcohol 12/16/2014 Allergies, Adverse Reactions, Alerts Allergies, Adverse Reactions, Alerts data not found Past Medical History Illness Codes Condition Status Onset Date Resolved Date 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 Active 07/04/2016 Unknown Vitamin B12 deficiency anemia, unspecified ICD-9: 281.1 ICD-10: D51.9 Active 06/21/2016 Unknown Dysuria ICD-9: 788.1 ICD-10: R30.0 Active [...] Status 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 07/04/2016 Active Vitamin B12 deficiency anemia, unspecified ICD-9: 281.1 ICD-10: D51.9 06/21/2016 Active Dysuria ICD-9: 788.1 ICD-10: R30.0 11/07/2016 [...] (vit B-12) 1,000 mcg/mL injection solution RxNorm: 729176 Milliliter(s) Inj 12/14/2016 12/14/2016 Inactive buspirone 15 mg tablet RxNorm: 784182 1 Tablet(s) PO BID 12/12/2016 06/09/2017 Active hydrocodone 5 mg-acetaminophen 325 mg tablet RxNorm: 092315 1-2 Tablet(s) PO Q6 as needed for pain 12/08/2016 12/12/2016 Inactive Topamax 25 mg tablet RxNorm: 280934 TAKE 1 TABLET BY MOUTH EVERY DAY AT BEDTIME 12/06/2016 04/04/2017 Active Generic For:TOPAMAX 25MG 12/06/2016 9:15:13 AM Lac-Hydrin Five 5 % lotion RxNorm: 490676 1 Gram(s) TOP daily 12/02/2016 01/30/2017 Active cyanocobalamin (vit B-12) 1,000 mcg/mL injection solution RxNorm: 018665 Milliliter(s) Inj 11/24/2016 11/24/2016 Inactive Ceftin 500 mg tablet RxNorm: 438501 1 Tablet(s) PO BID 11/11/2016 11/17/2016 Inactive Cipro 500 mg tablet RxNorm: 499061 1 Tablet(s) PO BID 11/11/2016 11/10/2016 Inactive Cipro 500 mg tablet RxNorm: 569016 1 Tablet(s) PO BID 11/11/2016 11/11/2016 Inactive cyanocobalamin (vit B-12) 1,000 mcg/mL injection solution RxNorm: 212108 1 Milliliter(s) Inj 11/07/2016 11/07/2016 Inactive hydrocodone 5 mg-acetaminophen 325 mg tablet RxNorm: 013191 1-2 Tablet(s) PO Q6 as needed for pain 11/02/2016 11/06/2016 Inactive levothyroxine 125 mcg tablet RxNorm: 597066 Tablet(s) 1 Tablet(s) PO daily 10/24/2016 04/21/2017 Active liothyronine 5 mcg tablet RxNorm: 943342 1 Tablet(s) PO BID 10/24/2016 04/21/2017 Active cyanocobalamin (vit B-12) 1,000 mcg/mL injection solution RxNorm: 083465 Milliliter(s) Inj 10/24/2016 10/24/2016 Inactive hydrocodone 5 mg-acetaminophen 325 mg tablet RxNorm: 677668 1-2 Tablet(s) PO Q6 as needed for pain 10/17/2016 10/21/2016 Inactive Keflex 500 mg capsule RxNorm: 351661 1 Capsule(s) PO TID 10/07/2016 10/06/2016 Inactive Keflex 500 mg capsule RxNorm: 502908 1 Capsule(s) PO TID 10/07/2016 10/16/2016 Inactive Please deliver to patient cyanocobalamin (vit B-12) 1,000 mcg/mL injection solution RxNorm: 388469 1 Milliliter(s) Inj 09/29/2016 09/29/2016 Inactive alprazolam 0.25 mg tablet RxNorm: 934497 1 Tablet(s) PO BID 09/20/2016 03/18/2017 Active Zoloft 50 mg tablet RxNorm: 961454 Tablet(s) TAKE 1 TABLET BY MOUTH DAILY 09/14/2016 03/12/2017 Active Generic For:ZOLOFT 50MG Cozaar 100 mg tablet RxNorm: 054515 1 Tablet(s) PO daily 09/14/2016 No Stop Date Active metoprolol tartrate 50 mg tablet RxNorm: 797345 1/2 Tablet(s) PO BID 09/14/2016 12/12/2016 Inactive liothyronine 5 mcg tablet RxNorm: 411250 1 Tablet(s) PO BID 09/14/2016 10/23/2016 Inactive Calmoseptine 0.44 %-20.6 % topical ointment RxNorm: 474469 1 Application TOP BID and as needed to sore on buttocks 09/07/2016 No Stop Date Active cyanocobalamin (vit B-12) 1,000 mcg/mL injection solution RxNorm: 770801 Milliliter(s) Inj 08/29/2016 08/29/2016 Inactive hydrocodone 5 mg-acetaminophen 325 mg tablet RxNorm: 714399 1-2 Tablet(s) PO Q6 as needed for pain 08/29/2016 10/16/2016 Inactive levothyroxine 125 mcg tablet RxNorm: 336725 1 Tablet(s) PO daily 08/25/2016 10/23/2016 Inactive Topamax 25 mg tablet RxNorm: 997542 TAKE 1 TABLET BY MOUTH EVERY DAY AT BEDTIME 08/17/2016 12/05/2016 Inactive Generic For:TOPAMAX 25MG 08/17/2016 2:14:37 PM hydrocodone 5 mg-acetaminophen 325 mg tablet RxNorm: 650101 1-2 Tablet(s) PO Q6 as needed for pain 08/11/2016 08/28/2016 Inactive hydrocodone 5 mg-acetaminophen 325 mg tablet RxNorm: 281982 1 -2 Tablet(s) PO Q6 as needed for pain 08/11/2016 08/18/2016 Inactive hydrocodone 5 mg-acetaminophen 325 mg tablet RxNorm: 327616 1 Tablet(s) PO Q6 as needed for pain 08/05/2016 08/10/2016 Inactive cyanocobalamin (vit B-12) 1,000 mcg/mL injection solution RxNorm: 424910 Milliliter(s) Inj 08/04/2016 08/04/2016 Inactive Norvasc 10 mg tablet RxNorm: 248302 1 Tablet(s) PO daily 07/26/2016 07/20/2017 Active levothyroxine 125 mcg tablet RxNorm: 057930 1 Tablet(s) PO daily 07/21/2016 10/18/2016 Inactive alprazolam 0.25 mg tablet RxNorm: 785788 1 Tablet(s) PO QHS 07/21/2016 09/19/2016 Inactive Norvasc 5 mg tablet RxNorm: 187895 1 Tablet(s) PO daily 07/21/2016 07/25/2016 Inactive cyanocobalamin (vit B-12) 1,000 mcg/mL injection solution RxNorm: 454202 Milliliter(s) Inj 07/21/2016 07/21/2016 Inactive Zoloft 50 mg tablet RxNorm: 610512 Tablet(s) TAKE 1 TABLET BY MOUTH DAILY 07/21/2016 09/13/2016 Inactive Generic For:ZOLOFT 50MG cyanocobalamin (vit B-12) 1,000 mcg/mL injection solution RxNorm: 619371 1 Milliliter(s) Inj 07/05/2016 07/05/2016 Inactive cyanocobalamin (vit B-12) 1,000 mcg/mL injection solution RxNorm: 484802 1 Milliliter(s) Inj 06/22/2016 06/22/2016 Inactive cyanocobalamin (vit B-12) 1,000 mcg/mL injection solution RxNorm: 913974 Milliliter(s) Inj 06/09/2016 06/09/2016 Inactive Aricept 10 mg tablet RxNorm: 214795 1 Tablet(s) PO daily 05/27/2016 05/21/2017 Active Mobic 15 mg tablet RxNorm: 826236 1 Tablet(s) PO daily 05/27/2016 05/21/2017 Active levothyroxine 125 mcg tablet RxNorm: 734616 1 Tablet(s) PO daily 05/25/2016 07/20/2016 Inactive cyanocobalamin (vit B-12) 1,000 mcg/mL injection solution RxNorm: 525987 1 Milliliter(s) Inj 05/25/2016 05/25/2016 Inactive doxycycline hyclate 100 mg capsule RxNorm: 3516503 1 Capsule(s) PO BID 05/16/2016 05/15/2016 Inactive doxycycline hyclate 100 mg capsule RxNorm: 7768691 1 Capsule(s) PO BID 05/16/2016 05/22/2016 Inactive cyanocobalamin (vit B-12) 1,000 mcg/mL injection solution RxNorm: 814305 Milliliter(s) Inj 05/10/2016 05/10/2016 Inactive cyanocobalamin (vit B-12) 1,000 mcg/mL injection solution RxNorm: 046435 Milliliter(s) Inj 04/26/2016 04/26/2016 Inactive Topamax 25 mg tablet RxNorm: 128635 1 Tablet(s) PO QPM 04/22/2016 08/16/2016 Inactive cyanocobalamin (vit B-12) 1,000 mcg/mL injection solution RxNorm: 726114 Milliliter(s) 1 Milliliter(s) Inj W3iymyr 04/11/2016 12/31/2017 Active liothyronine 5 mcg tablet RxNorm: 322892 1 Tablet(s) PO BID 04/11/2016 09/13/2016 Inactive cyanocobalamin (vit B-12) 1,000 mcg/mL injection solution RxNorm: 253304 Milliliter(s) Inj 04/11/2016 04/11/2016 Inactive cyanocobalamin (vit B-12) 1,000 mcg/mL injection solution RxNorm: 736427 Milliliter(s) Inj 03/31/2016 03/31/2016 Inactive cyanocobalamin (vit B-12) 1,000 mcg/mL injection solution RxNorm: 322469 1 Milliliter(s) Inj 03/15/2016 03/15/2016 Inactive levothyroxine 125 mcg tablet RxNorm: 918987 1 Tablet(s) PO daily 2016 03/03/2016 Inactive levothyroxine 125 mcg tablet RxNorm: 245786 1 Tablet(s) PO daily 2016 05/24/2016 Inactive cyanocobalamin (vit B-12) 1,000 mcg/mL injection solution RxNorm: 211914 Milliliter(s) Inj 02/25/2016 02/25/2016 Inactive cyanocobalamin (vit B-12) 1,000 mcg/mL injection solution RxNorm: 352660 1 Milliliter(s) Inj 02/02/2016 02/02/2016 Inactive sucralfate 1 gram tablet RxNorm: 856856 1 Tablet(s) PO QHS 01/25/2016 No Stop Date Active amiodarone 200 mg tablet RxNorm: 720012 1/2 Tablet(s) PO BID 01/25/2016 No Stop Date Active cyanocobalamin (vit B-12) 1,000 mcg/mL injection solution RxNorm: 808093 Milliliter(s) Inj 01/18/2016 01/18/2016 Inactive cyanocobalamin (vit B-12) 1,000 mcg/mL injection solution RxNorm: 086102 Milliliter(s) Inj 12/29/2015 12/29/2015 Inactive Topamax 25 mg tablet RxNorm: 546347 1 Tablet(s) PO QPM 12/08/2015 04/05/2016 Inactive cyanocobalamin (vit B-12) 1,000 mcg/mL injection solution RxNorm: 482655 Milliliter(s) Inj 12/08/2015 12/08/2015 Inactive Bactrim DS 800 mg-160 mg tablet RxNorm: 234897 1 Tablet(s) PO BID 11/23/2015 11/22/2015 Inactive cyanocobalamin (vit B-12) 1,000 mcg/mL injection solution RxNorm: 607132 Milliliter(s) Inj 11/23/2015 11/23/2015 Inactive Bactrim DS 800 mg-160 mg tablet RxNorm: 109776 1 Tablet(s) PO BID 11/23/2015 11/29/2015 Inactive cyanocobalamin (vit B-12) 1,000 mcg/mL injection solution RxNorm: 547499 Milliliter(s) Inj 11/11/2015 11/11/2015 Inactive amoxicillin 500 mg capsule RxNorm: 365743 1 Capsule(s) PO TID 11/10/2015 11/19/2015 Inactive Zithromax Z-Henrique 250 mg tablet RxNorm: 958739 1 Tablet(s) PO UD 11/10/2015 01/24/2016 Inactive zpack x 1 amoxicillin 500 mg capsule RxNorm: 164144 1 Capsule(s) PO TID 11/10/2015 11/09/2015 Inactive cyanocobalamin (vit B-12) 1,000 mcg/mL injection solution RxNorm: 731776 1 Milliliter(s) Inj 10/29/2015 10/29/2015 Inactive Clinton 3 capsule RxNorm: 1 Capsule(s) PO QAM , 2 Capsules at noon, 1 Capsule QHS 10/13/2015 No Stop Date Active potassium chloride ER 20 mEq tablet,extended release RxNorm: 349979 2 Tablet(s) PO daily at noon 10/13/2015 No Stop Date Active alprazolam 0.25 mg tablet RxNorm: 001789 1 Tablet(s) PO QHS 10/13/2015 07/20/2016 Inactive amiodarone 200 mg tablet RxNorm: 758698 1 Tablet(s) PO BID 10/13/2015 01/24/2016 Inactive cyanocobalamin (vit B-12) 1,000 mcg/mL injection solution RxNorm: 125419 1 Milliliter(s) Inj 10/12/2015 10/12/2015 Inactive Zofran 4 mg tablet RxNorm: 027737 1 Tablet(s) PO daily as needed 10/07/2015 05/24/2016 Inactive Zoloft 50 mg tablet RxNorm: 834487 TAKE 1 TABLET BY MOUTH DAILY 10/05/2015 05/01/2016 Inactive Generic For:ZOLOFT 50MG cyanocobalamin (vit B-12) 1,000 mcg/mL injection solution RxNorm: 800205 1 Milliliter(s) Inj 09/29/2015 09/29/2015 Inactive cyanocobalamin (vit B-12) 1,000 mcg/mL injection solution RxNorm: 671377 1 Milliliter(s) Inj 09/17/2015 09/17/2015 Inactive Norvasc 5 mg tablet RxNorm: 182194 1 Tablet(s) PO daily 09/17/2015 07/20/2016 Inactive liothyronine 5 mcg tablet RxNorm: 516694 1 Tablet(s) PO BID 09/17/2015 03/14/2016 Inactive Zoloft 50 mg tablet RxNorm: 705706 1 Tablet(s) PO daily 09/17/2015 10/04/2015 Inactive buspirone 15 mg tablet RxNorm: 759263 1 Tablet(s) PO BID 09/17/2015 09/10/2016 Inactive buspirone 15 mg tablet RxNorm: 968661 1 Tablet(s) PO BID 09/14/2015 09/16/2015 Inactive Topamax 25 mg tablet RxNorm: 139912 1 Tablet(s) PO QPM 09/03/2015 12/07/2015 Inactive cyanocobalamin (vit B-12) 1,000 mcg/mL injection solution RxNorm: 401314 1 Milliliter(s) Inj 09/03/2015 09/03/2015 Inactive cyanocobalamin (vit B-12) 1,000 mcg/mL injection solution RxNorm: 534863 Milliliter(s) Inj 08/17/2015 08/17/2015 Inactive cyanocobalamin (vit B-12) 1,000 mcg/mL injection solution RxNorm: 430022 Milliliter(s) Inj 08/06/2015 08/06/2015 Inactive levothyroxine 150 mcg tablet RxNorm: 578803 1 Tablet(s) PO daily 07/22/2015 03/03/2016 Inactive Aricept 10 mg tablet RxNorm: 742965 1 Tablet(s) PO daily 07/22/2015 05/26/2016 Inactive Mobic 15 mg tablet RxNorm: 529371 1 Tablet(s) PO daily 07/22/2015 05/26/2016 Inactive cyanocobalamin (vit B-12) 1,000 mcg/mL injection solution RxNorm: 553087 Milliliter(s) Inj 07/22/2015 07/22/2015 Inactive liothyronine 5 mcg tablet RxNorm: 977916 1 Tablet(s) PO BID 07/22/2015 09/16/2015 Inactive cyanocobalamin (vit B-12) 1,000 mcg/mL injection solution RxNorm: 920663 Milliliter(s) Inj 07/08/2015 07/08/2015 Inactive cyanocobalamin (vit B-12) 1,000 mcg/mL injection solution RxNorm: 884265 Milliliter(s) Inj 06/23/2015 06/23/2015 Inactive cyanocobalamin (vit B-12) 1,000 mcg/mL injection solution RxNorm: 168640 1 Milliliter(s) Inj 06/08/2015 06/08/2015 Inactive cyanocobalamin (vit B-12) 1,000 mcg/mL injection solution RxNorm: 320142 Milliliter(s) Inj 05/27/2015 05/27/2015 Inactive Aricept 10 mg tablet RxNorm: 666283 1 Tablet(s) PO daily 05/20/2015 07/21/2015 Inactive Zofran 4 mg tablet RxNorm: 364953 1 Tablet(s) PO daily as needed 05/20/2015 06/18/2015 Inactive alprazolam 0.25 mg tablet RxNorm: 593152 1 Tablet(s) PO BID 05/20/2015 10/12/2015 Inactive Mobic 15 mg tablet RxNorm: 401765 1 Tablet(s) PO daily 05/20/2015 07/21/2015 Inactive tramadol ER 100 mg tablet,extended release 24 hr RxNorm: 004572 1 Tablet(s) PO Q6 as needed 05/13/2015 No Stop Date Active cyanocobalamin (vit B-12) 1,000 mcg/mL injection solution RxNorm: 957917 1 Milliliter(s) Inj 05/12/2015 05/12/2015 Inactive Topamax 25 mg tablet RxNorm: 319425 1 Tablet(s) PO BID (start at one pill at bedtime x 1week then twice daily thereafter) 05/12/2015 09/02/2015 Inactive cyanocobalamin (vit B-12) 1,000 mcg/mL injection kit RxNorm: 405476 kit Inj 04/30/2015 04/30/2015 Inactive cyanocobalamin (vit B-12) 1,000 mcg/mL injection solution RxNorm: 595931 Milliliter(s) Inj 04/16/2015 04/16/2015 Inactive levothyroxine 150 mcg tablet RxNorm: 200323 1 Tablet(s) PO daily 04/08/2015 07/21/2015 Inactive cyanocobalamin (vit B-12) 1,000 mcg/mL injection solution RxNorm: 903538 Milliliter(s) 1 Milliliter(s) Inj T4easxy 04/08/2015 04/10/2016 Inactive Cytomel 5 mcg tablet RxNorm: 461597 1 Tablet(s) PO BID 04/08/2015 10/12/2015 Inactive Cytomel 5 mcg tablet RxNorm: 434036 1 Tablet(s) PO BID 04/07/2015 04/07/2015 Inactive Cytomel 5 mcg tablet RxNorm: 889546 1 Tablet(s) PO BID 04/07/2015 04/06/2015 Inactive cyanocobalamin (vit B-12) 1,000 mcg/mL injection solution RxNorm: 205761 Milliliter(s) Inj 04/02/2015 04/02/2015 Inactive cyanocobalamin (vit B-12) 1,000 mcg/mL injection solution RxNorm: 645754 Milliliter(s) Inj 03/18/2015 03/18/2015 Inactive cyanocobalamin (vit B-12) 1,000 mcg/mL injection solution RxNorm: 259685 Milliliter(s) 1 Milliliter(s) Inj K7iiady 03/18/2015 04/07/2015 Inactive cyanocobalamin (vit B-12) 1,000 mcg/mL injection solution RxNorm: 890511 1 Milliliter(s) Inj K5njydt 03/16/2015 03/17/2015 Inactive cyanocobalamin (vit B-12) 1,000 mcg/mL injection solution RxNorm: 803773 Milliliter(s) Inj 03/03/2015 03/03/2015 Inactive cyanocobalamin (vit B-12) 1,000 mcg/mL injection solution RxNorm: 682849 Milliliter(s) Inj 02/18/2015 02/18/2015 Inactive cyanocobalamin (vit B-12) 1,000 mcg/mL injection solution RxNorm: 365884 Milliliter(s) Inj 02/04/2015 02/04/2015 Inactive cyanocobalamin (vit B-12) 1,000 mcg/mL injection solution RxNorm: 737679 Milliliter(s) Inj 01/22/2015 01/22/2015 Inactive Lac-Hydrin Five 5 % lotion RxNorm: 989883 1 TOP daily 01/13/2015 03/13/2015 Inactive Lac-Hydrin Five 5 % lotion RxNorm: 412075 1 TOP daily 01/13/2015 01/12/2015 Inactive cyanocobalamin (vit B-12) 1,000 mcg/mL injection solution RxNorm: 677776 Milliliter(s) Inj 01/08/2015 01/08/2015 Inactive cyanocobalamin (vit B-12) 1,000 mcg/mL injection solution RxNorm: 527967 Milliliter(s) Inj 12/25/2014 12/25/2014 Inactive levothyroxine 150 mcg tablet RxNorm: 010092 1 Tablet(s) PO daily 12/24/2014 04/07/2015 Inactive tramadol 50 mg tablet RxNorm: 225506 1-2 Tablet(s) PO Q6 as needed 12/17/2014 05/12/2015 Inactive alprazolam 0.25 mg tablet RxNorm: 106511 1 Tablet(s) PO BID 12/17/2014 04/15/2015 Inactive Pradaxa 150 mg capsule RxNorm: 0137913 1 Capsule(s) PO BID 12/16/2014 No Stop Date Active metoprolol tartrate 50 mg tablet RxNorm: 549759 1/2 Tablet(s) PO BID 12/16/2014 09/13/2016 Inactive buspirone 15 mg tablet RxNorm: 784312 1 Tablet(s) PO BID 12/16/2014 09/13/2015 Inactive cyanocobalamin (vit B-12) 1,000 mcg/mL injection solution RxNorm: 539896 1 Milliliter(s) Inj C0kdaxy 12/16/2014 03/15/2015 Inactive cyanocobalamin (vit B-12) 1,000 mcg/mL injection solution RxNorm: 167833 1 Milliliter(s) Inj Y1czibm 12/16/2014 12/15/2014 Inactive sucralfate 1 gram tablet RxNorm: 253750 Tablet(s) PO QID 12/16/2014 12/10/2015 Inactive cyanocobalamin (vit B-12) 1,000 mcg/mL injection solution RxNorm: 153584 Milliliter(s) Inj 12/10/2014 12/10/2014 Inactive cyanocobalamin (vit B-12) 1,000 mcg/mL injection solution RxNorm: 501689 Milliliter(s) Inj 11/26/2014 11/26/2014 Inactive Zoloft 50 mg tablet RxNorm: 529500 1 Tablet(s) PO daily 11/24/2014 06/21/2015 Inactive Zoloft 50 mg tablet RxNorm: 997714 1 Tablet(s) PO daily 11/24/2014 11/23/2014 Inactive cyanocobalamin (vit B-12) 1,000 mcg/mL injection kit RxNorm: 339694 Milliliter(s) Inj 11/12/2014 11/12/2014 Inactive cyanocobalamin (vit B-12) 1,000 mcg/mL injection solution RxNorm: 448979 Milliliter(s) Inj 10/28/2014 10/28/2014 Inactive [SAVINGS FOR NON-COVERED DRUGS -- BIN:[id number], PCN: [id number], Group: [id number], ID# [id number], Questions: . THIS IS NOT INSURANCE.] promethazine oral RxNorm: 8745 oral No Start Date Active digoxin 125 mcg tablet RxNorm: 679960 Tablet(s) PO every other day No Start Date Active furosemide 40 mg tablet RxNorm: 961895 1 Tablet(s) PO daily No Start Date Active Vitamin D3 5,000 unit tablet RxNorm: 610163 1 Tablet(s) PO daily No Start Date Active erythromycin 250 mg capsule,delayed release RxNorm: 600993 1 Capsule(s) PO AC No Start Date Active Protonix 40 mg tablet,delayed release RxNorm: 559339 1 Tablet(s) PO BID No Start Date Active Cozaar 100 mg tablet RxNorm: 827797 1 Tablet(s) PO daily No Start Date 09/13/2016 Inactive sucralfate 1 gram tablet RxNorm: 463412 Tablet(s) PO QID No Start Date 12/15/2014 Inactive amiodarone 200 mg tablet RxNorm: 378336 2 Tablet(s) PO daily No Start Date 10/13/2015 Inactive buspirone 15 mg tablet RxNorm: 124679 1 Tablet(s) PO daily No Start Date 12/15/2014 Inactive potassium chloride ER 20 mEq tablet,extended release RxNorm: 758031 1 Tablet(s) PO daily No Start Date 10/12/2015 Inactive Prilosec 40 mg capsule,delayed release RxNorm: 942051 1 Capsule(s) PO daily No Start Date 09/02/2015 Inactive Clinton 3 capsule RxNorm: Capsule(s) PO No Start Date 10/12/2015 Inactive alprazolam 0.25 mg tablet RxNorm: 775648 Tablet(s) PO QHS No Start Date 12/16/2014 Inactive levothyroxine 125 mcg tablet RxNorm: 631248 1 Tablet(s) PO daily No Start Date 12/23/2014 Inactive liothyronine 5 mcg tablet RxNorm: 789471 1 Tablet(s) PO BID No Start Date 07/21/2015 Inactive Mobic 15 mg tablet RxNorm: 192550 Tablet(s) PO daily No Start Date 05/19/2015 Inactive Norvasc 5 mg tablet RxNorm: 268133 1 Tablet(s) PO daily No Start Date 09/16/2015 Inactive Zofran 4 mg tablet RxNorm: 217391 1 Tablet(s) PO daily as needed No Start Date 05/19/2015 Inactive tramadol 50 mg tablet RxNorm: 507154 1 Tablet(s) PO daily as needed No Start Date 12/16/2014 Inactive amiodarone 200 mg tablet RxNorm: 681997 1 Tablet(s) PO daily No Start Date 10/12/2015 Inactive meclizine 25 mg tablet RxNorm: 683540 Tablet(s) PO as needed No Start Date 05/24/2016 Inactive Pradaxa 150 mg capsule RxNorm: 8114515 1 Capsule(s) PO daily No Start Date 12/15/2014 Inactive metoprolol tartrate 50 mg tablet RxNorm: 820393 1/2 Tablet(s) PO No Start Date 12/15/2014 Inactive Aricept 10 mg tablet RxNorm: 800743 Tablet(s) PO daily No Start Date 05/19/2015 Inactive Calmoseptine 0.44 %-20.6 % topical ointment RxNorm: 907782 1 Application TOP BID and as needed to sore on buttocks No Start Date 09/06/2016 Inactive Zithromax Z-Henrique 250 mg tablet RxNorm: 115359 1 Tablet(s) PO UD No Start Date 11/09/2015 Inactive zpack x 1 Medication Administered Medication Codes Instructions Start Date Status cyanocobalamin (vit B-12) 1,000 mcg/mL injection solution RxNorm: 487136 Milliliter 12/14/2016 Active cyanocobalamin (vit B-12) 1,000 mcg/mL injection solution RxNorm: 544996 Milliliter 11/24/2016 No longer Active cyanocobalamin (vit B-12) 1,000 mcg/mL injection solution RxNorm: 800023 1Milliliter 11/07/2016 No longer Active cyanocobalamin (vit B-12) 1,000 mcg/mL injection solution RxNorm: 088033 Milliliter 10/24/2016 No longer Active cyanocobalamin (vit B-12) 1,000 mcg/mL injection solution RxNorm: 863057 1Milliliter 09/29/2016 No longer Active cyanocobalamin (vit B-12) 1,000 mcg/mL injection solution RxNorm: 823188 Milliliter 08/29/2016 No longer Active cyanocobalamin (vit B-12) 1,000 mcg/mL injection solution RxNorm: 641554 Milliliter 08/04/2016 No longer Active cyanocobalamin (vit B-12) 1,000 mcg/mL injection solution RxNorm: 634218 Milliliter 07/21/2016 No longer Active cyanocobalamin (vit B-12) 1,000 mcg/mL injection solution RxNorm: 593746 1Milliliter 07/05/2016 No longer Active cyanocobalamin (vit B-12) 1,000 mcg/mL injection solution RxNorm: 263835 1Milliliter 06/22/2016 No longer Active cyanocobalamin (vit B-12) 1,000 mcg/mL injection solution RxNorm: 213118 Milliliter 06/09/2016 No longer Active cyanocobalamin (vit B-12) 1,000 mcg/mL injection solution RxNorm: 696055 1Milliliter 05/25/2016 No longer Active cyanocobalamin (vit B-12) 1,000 mcg/mL injection solution RxNorm: 076147 Milliliter 05/10/2016 No longer Active cyanocobalamin (vit B-12) 1,000 mcg/mL injection solution RxNorm: 505796 Milliliter 04/26/2016 No longer Active cyanocobalamin (vit B-12) 1,000 mcg/mL injection solution RxNorm: 346021 Milliliter 04/11/2016 No longer Active cyanocobalamin (vit B-12) 1,000 mcg/mL injection solution RxNorm: 076971 Milliliter 03/31/2016 No longer Active cyanocobalamin (vit B-12) 1,000 mcg/mL injection solution RxNorm: 158029 1Milliliter 03/15/2016 No longer Active cyanocobalamin (vit B-12) 1,000 mcg/mL injection solution RxNorm: 820760 Milliliter 02/25/2016 No longer Active cyanocobalamin (vit B-12) 1,000 mcg/mL injection solution RxNorm: 644150 1Milliliter 02/02/2016 No longer Active cyanocobalamin (vit B-12) 1,000 mcg/mL injection solution RxNorm: 707578 Milliliter 01/18/2016 No longer Active cyanocobalamin (vit B-12) 1,000 mcg/mL injection solution RxNorm: 002469 Milliliter 12/29/2015 No longer Active cyanocobalamin (vit B-12) 1,000 mcg/mL injection solution RxNorm: 858613 Milliliter 12/08/2015 No longer Active cyanocobalamin (vit B-12) 1,000 mcg/mL injection solution RxNorm: 247745 Milliliter 11/23/2015 No longer Active cyanocobalamin (vit B-12) 1,000 mcg/mL injection solution RxNorm: 255507 Milliliter 11/11/2015 No longer Active cyanocobalamin (vit B-12) 1,000 mcg/mL injection solution RxNorm: 448176 1Milliliter 10/29/2015 No longer Active cyanocobalamin (vit B-12) 1,000 mcg/mL injection solution RxNorm: 930200 1Milliliter 10/12/2015 No longer Active cyanocobalamin (vit B-12) 1,000 mcg/mL injection solution RxNorm: 766580 1Milliliter 09/29/2015 No longer Active cyanocobalamin (vit B-12) 1,000 mcg/mL injection solution RxNorm: 562060 1Milliliter 09/17/2015 No longer Active cyanocobalamin (vit B-12) 1,000 mcg/mL injection solution RxNorm: 012899 1Milliliter 09/03/2015 No longer Active cyanocobalamin (vit B-12) 1,000 mcg/mL injection solution RxNorm: 599864 Milliliter 08/17/2015 No longer Active cyanocobalamin (vit B-12) 1,000 mcg/mL injection solution RxNorm: 695832 Milliliter 08/06/2015 No longer Active cyanocobalamin (vit B-12) 1,000 mcg/mL injection solution RxNorm: 599937 [facility] 07/22/2015 No longer Active cyanocobalamin (vit B-12) 1,000 mcg/mL injection solution RxNorm: 135901 [facility] 07/08/2015 No longer Active cyanocobalamin (vit B-12) 1,000 mcg/mL injection solution RxNorm: 058555 [facility] 06/23/2015 No longer Active cyanocobalamin (vit B-12) 1,000 mcg/mL injection solution RxNorm: 143263 1[facility] 06/08/2015 No longer Active cyanocobalamin (vit B-12) 1,000 mcg/mL injection solution RxNorm: 386693 [facility] 05/27/2015 No longer Active cyanocobalamin (vit B-12) 1,000 mcg/mL injection solution RxNorm: 134631 1[facility] 05/12/2015 No longer Active cyanocobalamin (vit B-12) 1,000 mcg/mL injection kit RxNorm: 328143 kit 04/30/2015 No longer Active cyanocobalamin (vit B-12) 1,000 mcg/mL injection solution RxNorm: 692801 Milliliter 04/16/2015 No longer Active cyanocobalamin (vit B-12) 1,000 mcg/mL injection solution RxNorm: 546581 Milliliter 04/02/2015 No longer Active cyanocobalamin (vit B-12) 1,000 mcg/mL injection solution RxNorm: 207540 Milliliter 03/18/2015 No longer Active cyanocobalamin (vit B-12) 1,000 mcg/mL injection solution RxNorm: 999794 Milliliter 03/03/2015 No longer Active cyanocobalamin (vit B-12) 1,000 mcg/mL injection solution RxNorm: 858310 Milliliter 02/18/2015 No longer Active cyanocobalamin (vit B-12) 1,000 mcg/mL injection solution RxNorm: 451637 Milliliter 02/04/2015 No longer Active cyanocobalamin (vit B-12) 1,000 mcg/mL injection solution RxNorm: 501316 Milliliter 01/22/2015 No longer Active cyanocobalamin (vit B-12) 1,000 mcg/mL injection solution RxNorm: 893822 Milliliter 01/08/2015 No longer Active cyanocobalamin (vit B-12) 1,000 mcg/mL injection solution RxNorm: 893280 Milliliter 12/25/2014 No longer Active cyanocobalamin (vit B-12) 1,000 mcg/mL injection solution RxNorm: 779695 Milliliter 12/10/2014 No longer Active cyanocobalamin (vit B-12) 1,000 mcg/mL injection solution RxNorm: 818876 Milliliter 11/26/2014 No longer Active cyanocobalamin (vit B-12) 1,000 mcg/mL injection kit RxNorm: 728440 Milliliter 11/12/2014 No longer Active cyanocobalamin (vit B-12) 1,000 mcg/mL injection solution RxNorm: 306499 Milliliter 10/28/2014 No longer Active Immunizations Vaccine Codes Date Status Pneumococcal (Adult) CVX: 33 05/25/2016 completed Influenza CVX: 141 03/15/2016 completed Assessments Condition Codes Effective Dates 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 ICD-9: 281.1 12/14/2016 Vitamin B12 deficiency anemia, unspecified ICD-10: D51.9 ICD-9: 281.1 11/24/2016 Dysuria ICD-10: R30.0 ICD-9: 788.1 11/07/2016 Low [...] Item Item Code Result Date Culture Urine [id number] URINE CULTURE SEE NOTES 11/10/2016 Culture Urine [id number] Continued Results 11/10/2016 Urine Culture Ucult Complete [...] Ord15 CALCIUM 9.3 mg/dL 09/29/2016 Free T4 Kmd844 FREE T4 0.99 ng/dL 09/07/2016 Cbc With [...] 91.7 fl 09/07/2016 Cbc With Differential Ord2 [place]% 9.8 % 09/07/2016 Cbc With Differential Ord2 [...] 1.75 K/ul 09/07/2016 Cbc With Differential Ord2 [place] ABS# 0.6 K/ul 09/07/2016 Cbc With Differential Ord2 Eos ABS# 0.1 K/ul 09/07/2016 Cbc With Differential Ord2 Baso ABS# 0.0 K/ul 09/07/2016 Tsh Ord6 hTSH II 1.41 uIU/mL 09/07/2016 Culture Urine [id number] URINE CULTURE SEE NOTES 06/27/2016 Lipid Ord30 CHOL 196 mg/dL 06/22/2016 Lipid Ord30 HDL 63.0 mg/dl 06/22/2016 Lipid Ord30 TRIG 154 mg/dL 06/22/2016 Lipid Ord30 LDL 102 mg/dL 06/22/2016 Lipid Ord30 C/HDL 3.1 Ratio 06/22/2016 Hepatic Wmt545 ALBUMIN 4.2 g/dL 06/22/2016 Hepatic Rcb337 TPRO 7.0 g/dL 06/22/2016 Hepatic Jdb428 GLOB 2.8 g/dL 06/22/2016 Hepatic Rrx635 A/G Ratio 1.5 Ratio 06/22/2016 Hepatic Atw023 ALK PHOS 54 U/L 06/22/2016 Hepatic Aox891 ALT(SGPT) 30 U/L 06/22/2016 Hepatic Ltv803 AST(SGOT) 24 U/L 06/22/2016 Hepatic Hfe086 BILI T 1.1 mg/dL 06/22/2016 Hepatic Aot925 BILI D 0.2 mg/dL 06/22/2016 Hepatic Bvl603 BILI I 0.9 mg/dL 06/22/2016 Comp Metabolic Yei698 NA 139 mEq/L 06/14/2016 Comp Metabolic Aba253 K 4.6 mEq/L 06/14/2016 Comp Metabolic Ihp599 CL 108 mEq/L 06/14/2016 Comp Metabolic Wpq954 CO2 22.0 mEq/L 06/14/2016 Comp Metabolic Kus257 ANION GAP 14 06/14/2016 Comp Metabolic Byh586 GLUCOSE 114 mg/dL 06/14/2016 Comp Metabolic Ujf800 Creat 1.2 mg/dL 06/14/2016 Comp Metabolic Zuy156 eGFR 48 ml/min/1.73m2 06/14/2016 Comp Metabolic Hkk228 BUN 24 mg/dL 06/14/2016 Comp Metabolic Vzq636 B/C Ratio 20.9 Ratio 06/14/2016 Comp Metabolic Ewr443 CALCIUM 9.9 mg/dL 06/14/2016 Comp Metabolic Fry158 ALK PHOS 47 U/L 06/14/2016 Comp Metabolic Ffs630 AST(SGOT) 28 U/L 06/14/2016 Comp Metabolic Fqu592 ALT(SGPT) 32 U/L 06/14/2016 Comp Metabolic Qvm611 BILI T 0.9 mg/dL 06/14/2016 Comp Metabolic Qbg688 ALBUMIN 4.1 g/dL 06/14/2016 Comp Metabolic Eay294 TPRO 6.9 g/dL 06/14/2016 Comp Metabolic Azc202 GLOB 2.8 g/dL 06/14/2016 Comp Metabolic Azj417 A/G Ratio 1.5 Ratio 06/14/2016 Comp Metabolic Rih893 Osmo 282 mOsmo 06/14/2016 Tsh Ord6 hTSH II 1.26 uIU/mL 06/14/2016 Free T4 Lnd681 FREE T4 1.09 ng/dL 06/14/2016 Tsh Ord6 hTSH II 0.28 uIU/mL 02/02/2016 Digoxin Ord9 DIGOXIN 0.7 NG/ML 02/02/2016 Free T4 Ebl609 FREE T4 1.23 ng/dL 02/02/2016 Hepatic Jkq655 ALBUMIN 4.0 g/dL 02/02/2016 Hepatic Tcn740 TPRO 7.0 g/dL 02/02/2016 Hepatic Inw658 GLOB 3.0 g/dL 02/02/2016 Hepatic Vst312 A/G Ratio 1.3 Ratio 02/02/2016 Hepatic Jkd662 ALK PHOS 57 U/L 02/02/2016 Hepatic Wrt720 ALT(SGPT) 62 U/L 02/02/2016 Hepatic Qlf825 AST(SGOT) 54 U/L 02/02/2016 Hepatic Mxn067 BILI T 0.8 mg/dL 02/02/2016 Hepatic Vis822 BILI D 0.2 mg/dL 02/02/2016 Hepatic Rdm569 BILI I 0.6 mg/dL 02/02/2016 Urine Culture Ucult Preliminary No Growth Day 1 11/25/2015 Urine Culture Ucult Complete No Growth Day 2 11/25/2015 Hepatic Feu738 ALBUMIN 3.9 g/dL 11/11/2015 Hepatic Ezj176 TPRO 7.0 g/dL 11/11/2015 Hepatic Dlx148 GLOB 3.1 g/dL 11/11/2015 Hepatic Uig847 A/G Ratio 1.3 Ratio 11/11/2015 Hepatic Nwc406 ALK PHOS 63 U/L 11/11/2015 Hepatic Gjo485 ALT(SGPT) 107 U/L 11/11/2015 Hepatic Agq514 AST(SGOT) 101 U/L 11/11/2015 Hepatic Xax021 BILI T 0.6 mg/dL 11/11/2015 Hepatic Chv278 BILI D 0.1 mg/dL 11/11/2015 Hepatic Mlz632 BILI I 0.5 mg/dL 11/11/2015 Comp Metabolic Pcc333 NA 138 mEq/L 10/29/2015 Comp Metabolic Tfq288 K 5.0 mEq/L 10/29/2015 Comp Metabolic Zsf000 CL 105 mEq/L 10/29/2015 Comp Metabolic Wpy520 CO2 23.0 mEq/L 10/29/2015 Comp Metabolic Ejn668 ANION GAP 15 10/29/2015 Comp Metabolic Xjy614 GLUCOSE 105 mg/dL 10/29/2015 Comp Metabolic Lyf090 Creat 1.0 mg/dL 10/29/2015 Comp Metabolic Fqh507 eGFR 55 ml/min/1.73m2 10/29/2015 Comp Metabolic Ngs596 BUN 20 mg/dL 10/29/2015 Comp Metabolic Lml782 B/C Ratio 19.4 Ratio 10/29/2015 Comp Metabolic Xhf230 CALCIUM 8.8 mg/dL 10/29/2015 Comp Metabolic Dek925 ALK PHOS 56 U/L 10/29/2015 Comp Metabolic Jlx008 AST(SGOT) 66 U/L 10/29/2015 Comp Metabolic Faj653 ALT(SGPT) 78 U/L 10/29/2015 Comp Metabolic Xsi211 BILI T 0.7 mg/dL 10/29/2015 Comp Metabolic Fsz213 ALBUMIN 3.6 g/dL 10/29/2015 Comp Metabolic Bzl380 TPRO 6.6 g/dL 10/29/2015 Comp Metabolic Nkf653 GLOB 3.0 g/dL 10/29/2015 Comp Metabolic Xso556 A/G Ratio 1.2 Ratio 10/29/2015 Comp Metabolic Qeb359 Osmo 279 mOsmo 10/29/2015 Comp Metabolic Phk839 NA 136 mEq/L 09/03/2015 Comp Metabolic Ikk496 K 4.4 mEq/L 09/03/2015 Comp Metabolic Bjb014 CL 103 mEq/L 09/03/2015 Comp Metabolic Cuo486 CO2 24.0 mEq/L 09/03/2015 Comp Metabolic Kuc374 ANION GAP 13 09/03/2015 Comp Metabolic Hug928 GLUCOSE 87 mg/dL 09/03/2015 Comp Metabolic Van319 Creat 1.1 mg/dL 09/03/2015 Comp Metabolic Izm301 eGFR 53 ml/min/1.73m2 09/03/2015 Comp Metabolic Uer435 BUN 17 mg/dL 09/03/2015 Comp Metabolic Bpg923 B/C Ratio 16.2 Ratio 09/03/2015 Comp Metabolic Zyl904 CALCIUM 9.0 mg/dL 09/03/2015 Comp Metabolic Edh962 ALK PHOS 55 U/L 09/03/2015 Comp Metabolic Fwi567 AST(SGOT) 83 U/L 09/03/2015 Comp Metabolic Cfm836 ALT(SGPT) 126 U/L 09/03/2015 Comp Metabolic Nks182 BILI T 0.9 mg/dL 09/03/2015 Comp Metabolic Rte372 ALBUMIN 3.9 g/dL 09/03/2015 Comp Metabolic Vnz097 TPRO 6.8 g/dL 09/03/2015 Comp Metabolic Wuw518 GLOB 2.9 g/dL 09/03/2015 Comp Metabolic Obc770 A/G Ratio 1.4 Ratio 09/03/2015 Comp Metabolic Kxf615 Osmo 273 mOsmo 09/03/2015 Total T3 Ord42 TT3 0.6 ng/ml 07/09/2015 Tsh Ord6 hTSH II 1.62 uIU/mL 07/09/2015 Total T3 Ord42 TT3 0.5 ng/ml 04/02/2015 Free T4 Ibo420 FREE T4 1.23 ng/dL 04/02/2015 Tsh Ord6 [...] Procedure Codes Date THER/PROPH/DIAG INJ SC/IM CPT-4: 46247Etpcwbw 12/14/2016 THER/PROPH/DIAG INJ SC/IM CPT-4: 97788Rcsfrgq 11/24/2016 URINALYSIS NONAUTO W/O SCOPE CPT-4: 85550Koyxaoq 11/07/2016 THER/PROPH/DIAG INJ SC/IM CPT-4: 85895Vfousqw 11/07/2016 THER/PROPH/DIAG INJ SC/IM CPT-4: 27388Fgrvacu 10/24/2016 THER/PROPH/DIAG INJ SC/IM CPT-4: 57675Qyfyntz 09/29/2016 THER/PROPH/DIAG INJ SC/IM CPT-4: 66543Qeifxju 08/29/2016 THER/PROPH/DIAG INJ SC/IM CPT-4: 23097Xfkcfxl 08/04/2016 THER/PROPH/DIAG INJ SC/IM CPT-4: 29711Ysojtbp 07/21/2016 THER/PROPH/DIAG INJ SC/IM CPT-4: 74427Mlsdico 07/05/2016 THER/PROPH/DIAG INJ SC/IM CPT-4: 28501Sqxgrcy 06/22/2016 URINALYSIS NONAUTO W/O SCOPE CPT-4: 54266Fnaqqtb 06/22/2016 THER/PROPH/DIAG INJ SC/IM CPT-4: 78554Gymfljg 06/09/2016 PPPS, SUBSEQ VISIT CPT-4: I5965Xbjgvbq 05/30/2016 ADMIN PNEUMOCOCCAL VACCINE SNOMED CT: 69670790 CPT-4: U0780Viulpgy 05/25/2016 Pneumococcal Polysaccharide Vaccine, 23-Valent, Ad CPT-4: 42528Pkwrfjz 05/25/2016 THER/PROPH/DIAG INJ SC/IM CPT-4: 56326Cgsbioi 05/25/2016 THER/PROPH/DIAG INJ SC/IM CPT-4: 14498Gfphuxg 05/10/2016 TRIAMCINOLONE ACET INJ NOS CPT-4: K2816Riuqreg 04/26/2016 VITAMIN B12 INJECTION CPT-4: M9698Xurhvkc 04/26/2016 THER/PROPH/DIAG INJ SC/IM CPT-4: 13734Cverott 04/11/2016 THER/PROPH/DIAG INJ SC/IM CPT-4: 65001Ychhwww 03/31/2016 ADMIN INFLUENZA VIRUS VAC CPT-4: Z8756Tmhwlsi 03/15/2016 FLU VACC 4 STEPHANIE [address] YRS PLUS IM SNOMED CT: 47927505 CPT-4: 31555Jkzhwmc 03/15/2016 THER/PROPH/DIAG INJ SC/IM CPT-4: 24425Jdmarbi 02/25/2016 THER/PROPH/DIAG INJ SC/IM CPT-4: 70914Xerzber 02/02/2016 THER/PROPH/DIAG INJ SC/IM CPT-4: 40875Quiosac 01/18/2016 VITAMIN B12 INJECTION CPT-4: B2914Whuxkej 12/29/2015 THER/PROPH/DIAG INJ SC/IM CPT-4: 98297Jcorrzw 12/29/2015 THER/PROPH/DIAG INJ SC/IM CPT-4: 04754Nhpiaue 12/08/2015 THER/PROPH/DIAG INJ SC/IM CPT-4: 88876Kfiqwns 11/23/2015 URINALYSIS NONAUTO W/O SCOPE CPT-4: 33623Dnzbnlh 11/23/2015 THER/PROPH/DIAG INJ SC/IM CPT-4: 41353Futyapg 11/11/2015 THER/PROPH/DIAG INJ SC/IM CPT-4: 06153Vkqczwk 10/29/2015 THER/PROPH/DIAG INJ SC/IM CPT-4: 07695Crmxcnb 10/12/2015 VITAMIN B12 INJECTION CPT-4: A3662Qbmvrar 10/12/2015 THER/PROPH/DIAG INJ SC/IM CPT-4: 55953Alqvali 09/29/2015 THER/PROPH/DIAG INJ SC/IM CPT-4: 81369Yiwvqgu 09/17/2015 THER/PROPH/DIAG INJ SC/IM CPT-4: 02287Zmjqlqu 09/03/2015 THER/PROPH/DIAG INJ SC/IM CPT-4: 53154Uiafstr 08/17/2015 THER/PROPH/DIAG INJ SC/IM CPT-4: 00478Agibtql 08/06/2015 THER/PROPH/DIAG INJ SC/IM CPT-4: 76445Pctsuce 07/22/2015 THER/PROPH/DIAG INJ SC/IM CPT-4: 51493Vkigqmc 07/08/2015 THER/PROPH/DIAG INJ SC/IM CPT-4: 53710Uqoauzu 06/23/2015 THER/PROPH/DIAG INJ SC/IM CPT-4: 16074Ntwpmkl 06/08/2015 THER/PROPH/DIAG INJ SC/IM CPT-4: 28845Csmoygn 05/27/2015 DESTRUCT PREMALG LESION CPT-4: 65140Lmscfow 05/19/2015 DESTRUCT PREMALG LES 2-14 CPT-4: 65310Fsjybni 05/19/2015 THER/PROPH/DIAG INJ SC/IM CPT-4: 25338Sjhfcpr 05/12/2015 VITAMIN B12 INJECTION CPT-4: P4312Uacwgnp 05/12/2015 THER/PROPH/DIAG INJ SC/IM CPT-4: 08882Fyknkvg 04/30/2015 VITAMIN B12 INJECTION CPT-4: N6916Vyyvocv 04/30/2015 THER/PROPH/DIAG INJ SC/IM CPT-4: 82053Cvhywav 04/16/2015 THER/PROPH/DIAG INJ SC/IM CPT-4: 64913Gwzquly 04/02/2015 VITAMIN B12 INJECTION CPT-4: L5264Hjxuwrj 04/02/2015 THER/PROPH/DIAG INJ SC/IM CPT-4: 15525Wfwhxtx 03/18/2015 THER/PROPH/DIAG INJ SC/IM CPT-4: 82524Rsxlqhp 03/03/2015 THER/PROPH/DIAG INJ SC/IM CPT-4: 51750Nmnjzhy 02/18/2015 THER/PROPH/DIAG INJ SC/IM CPT-4: 26357Vvsekbf 02/04/2015 VITAMIN B12 INJECTION CPT-4: A3216Xefxbkx 02/04/2015 THER/PROPH/DIAG INJ SC/IM CPT-4: 17543Kapheqh 01/22/2015 THER/PROPH/DIAG INJ SC/IM CPT-4: 22500Exdnvan 01/08/2015 VITAMIN B12 INJECTION CPT-4: I3524Hdrdnvi 01/08/2015 THER/PROPH/DIAG INJ SC/IM CPT-4: 60081Etxmkfu 12/25/2014 VITAMIN B12 INJECTION CPT-4: R6121Toxpvrl 12/25/2014 THER/PROPH/DIAG INJ SC/IM CPT-4: 21145Kappauz 12/10/2014 VITAMIN B12 INJECTION CPT-4: Y5493Qgftnja 12/10/2014 THER/PROPH/DIAG INJ SC/IM CPT-4: 56356Kpertgm 11/26/2014 VITAMIN B12 INJECTION CPT-4: K3340Wroryxs 11/26/2014 THER/PROPH/DIAG INJ SC/IM CPT-4: 72105Plwuucr 11/12/2014 VITAMIN B12 INJECTION CPT-4: A5111Jvptyyn 11/12/2014 THER/PROPH/DIAG INJ SC/IM CPT-4: 88889Emufory 10/28/2014 Vital Signs Date Vital 11/02/2016 Blood Pressure 1: 148/78 Code: 8480-6 BMI: 29.7 Code: 16201-1 Heart Rate 1: 87 bpm Height: 5'6" SpO2: 97% Weight: 184 lbs 09/29/2016 Blood Pressure 1: 128/78 Code: 8480-6 BMI: 29.7 Code: 69649-9 Heart Rate 1: 78 bpm Height: 5'6" SpO2: 98% Weight: 184 lbs 07/26/2016 Blood Pressure 1: 138/72 Code: 8480-6 BMI: 30.0 Code: 85334-1 Heart Rate 1: 85 bpm Height: 5'6" SpO2: 97% Weight: 186 lbs 05/30/2016 Blood Pressure 1: 132/76 Code: 8480-6 BMI: 30.0 Code: 26615-0 Heart Rate 1: 80 bpm Height: 5'6" SpO2: 98% Waist Measure (cm): 99 cm Weight: 186 lbs 05/25/2016 Blood Pressure 1: 132/76 Code: 8480-6 BMI: 30.0 Code: 92840-0 Heart Rate 1: 80 bpm Height: 5'6" SpO2: 96% Weight: 186 lbs 02/25/2016 Blood Pressure 1: 110/64 Code: 8480-6 Heart Rate 1: 82 bpm Height: SpO2: 96% Weight: 01/25/2016 Blood Pressure 1: 118/70 Code: 8480-6 BMI: 30.0 Code: 68715-8 Heart Rate 1: 78 bpm Height: 5'6" SpO2: 97% Weight: 186 lbs 11/11/2015 Blood Pressure 1: 128/82 Code: 8480-6 BMI: 29.2 Code: 86773-6 Heart Rate 1: 86 bpm Height: 5'6" SpO2: 96% Temperature: 36.4 (C) / 97.6 (F) Weight: 181 lbs 10/12/2015 Blood Pressure 1: 118/70 Code: 8480-6 BMI: 29.2 Code: 59286-3 Heart Rate 1: 81 bpm Height: 5'6" SpO2: 95% Weight: 181 lbs 09/03/2015 Blood Pressure 1: 138/78 Code: 8480-6 BMI: 29.9 Code: 58309-1 Heart Rate 1: 88 bpm Height: 5'6" SpO2: 97% Weight: 185 lbs 05/19/2015 Blood Pressure 1: 146/78 Code: 8480-6 BMI: 30.0 Code: 44243-2 Heart Rate 1: 66 bpm Height: 5'6" SpO2: 97% Weight: 186 lbs 05/12/2015 Blood Pressure 1: 120/70 Code: 8480-6 BMI: 29.9 Code: 53863-8 Heart Rate 1: 89 bpm Height: 5'6" SpO2: 95% Weight: 185 lbs 01/13/2015 Blood Pressure 1: 140/90 Code: 8480-6 BMI: 30.3 Code: 61413-8 Heart Rate 1: 84 bpm Height: 5'6" SpO2: 95% Weight: 188 lbs 12/16/2014 Blood Pressure 1: 140/82 Code: 8480-6 BMI: 29.5 Code: 17189-0 Heart Rate 1: 86 bpm Height: 5'6" [...] Performer Location Codes Date EST. PATIENT, LEVEL III Diagnosis: Low back pain[ICD10: M54.5] Diagnosis: Pain in thoracic spine[ICD10: M54.6] Brianna Vega MD, [facility] CPT- 4: 41692 11/02/2016 [id number]) 80788 EST. PATIENT, LEVEL IV Diagnosis: Essential (primary) hypertension[ICD10: I10] Diagnosis: Other vitamin B12 deficiency anemias[ICD10: D51.8] Diagnosis: Generalized abdominal pain[ICD10: R10.84] [facility] CPT-4: 45994 09/29/2016 ([id number]) 98914 EST. PATIENT, LEVEL IV Diagnosis: Essential (primary) hypertension[ICD10: I10] Yarely Vega MD, [facility] CPT-4: 05452 07/26/[id number]) 23107 EST. PATIENT, LEVEL IV Diagnosis: Benign lipomatous neoplasm of skin and subcutaneous tissue of right leg[ICD10: D17.23] Diagnosis: Pain in right ankle and joints of right foot[ICD10: M25.571] Diagnosis: Encounter for immunization[ICD10: Z23] Diagnosis: Vitamin B12 deficiency anemia, unspecified[ICD10: D51.9] Yarely Vega MD, [facility] CPT-4: 15406 05/25/2016 84866 EST. PATIENT, LEVEL III Diagnosis: Other chest pain[ICD10: R07.89] Diagnosis: Other vitamin B12 deficiency anemias[ICD10: D51.8] Brianna Vega MD, [facility] CPT-4: 47151 02/25/2016 ([id number]) 97164 EST. 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 PATIENT, LEVEL III Diagnosis: Other vitamin B12 deficiency anemias[ICD10: D51.8] Diagnosis: Acute nasopharyngitis [common cold][ICD10: J00] Diagnosis: Other allergic rhinitis[ICD10: J30.89] [facility] CPT- 4: 55157 11/11/2015 ([id number]) 11254 EST. PATIENT, LEVEL IV Diagnosis: Essential tremor[ICD10: G25.0] Diagnosis: Chronic fatigue, unspecified[ICD10: R53.82] Diagnosis: Other hypersomnia[ICD10: G47.19] Diagnosis: Essential (primary) hypertension[ICD10: I10] [facility] CPT-4: 81525 10/12/2015 ([id number]) 14230 EST. PATIENT, LEVEL IV Diagnosis: Essential (primary) hypertension[ICD10: I10] Diagnosis: Chronic atrial fibrillation[ICD10: I48.2] Diagnosis: Abnormal levels of other serum enzymes[ICD10: R74.8] Diagnosis: Type 2 diabetes mellitus without complications[ICD10: E11.9] Diagnosis: Vitamin B12 deficiency anemia, unspecified[ICD10: D51.9] [facility] CPT-4: 88872 09/03/2015 [id number] 08347 EST. PATIENT, LEVEL III Diagnosis: Nausea[ICD10: R11.0] Diagnosis: Essential tremor[ICD10: G25.0] Diagnosis: Actinic keratosis[ICD10: L57.0] Yarely Vega MD, [facility] CPT-4: 74474 05/19/[id number]) 74339 EST. PATIENT, LEVEL IV Diagnosis: Vitamin B12 deficiency anemia, unspecified[ICD10: D51.9] Diagnosis: Chronic atrial fibrillation[ICD10: I48.2] Diagnosis: Headache[ICD10: R51] Diagnosis: Chronic fatigue, unspecified[ICD10: R53.82] Diagnosis: Cervicalgia[ICD10: M54.2] Yarely Vega MD, [facility] CPT-4: 05385 05/12/2015 ([id number]) 68941 EST. PATIENT, LEVEL IV Diagnosis: ESSENTIAL HYPERTENSION[ICD9: 401.9] Diagnosis: Afib[ICD9: 427.31] Diagnosis: Anxiety[ICD9: 300.00] Diagnosis: Insomnia[ICD9: 780.52] Yarely Vega MD, [facility] CPT-4: 01806 01/13/2015 ([id number]) OFFICE VISIT, NEW - LEVEL 4 Diagnosis: Hypothyroidism[ICD9: 244.9] Diagnosis: DIABETES TYPE II[ICD9: 250.00] Diagnosis: ESSENTIAL HYPERTENSION[ICD9: 401.9] Diagnosis: Afib[ICD9: 427.31] Diagnosis: Anxiety[ICD9: 300.00] Diagnosis: B12 deficiency[ICD9: 266.2] Janet Vega MD, [facility] CPT-4: 40001 12/16/2014 Plan of Care Planned Activity Notes Codes Status Date Patient Education: Patient Medication Summary Completed 12/14/2016 [...] improve. 11/02/2016 [facility] [phone] [facility] [place] ([facility] min) Moderate 11/02/2016 Patient [...] carafate 09/29/2016 [facility] [phone] [facility] [place] ([facility] min) Moderate 09/29/2016 Patient Education: Patient Medication Summary Completed 09/29/2016 Appointment: [facility] [phone] [facility] [place] ([place] min) Moderate 09/27/2016 App[facility]ment[facility] [phone] [facility] [place] (15 min) Moderate 09/20/2016 App[facility]ment: [facility] [phone] [facility] [place] ([place] min) Moderate 09/20/2016 Patient Education: Patient Medication Summary Completed 09/06/2016 App[facility] [phone] [facility] [place] (15 min) Moderate 08/30/2016 Appointment: [...] concerns. 07/26/2016 Appointment: [facility] [phone] [facility] (15 min) Moderate 07/26/2016 Patient Education: [...] surrogate. 05/30/2016 [facility] [phone] [facility] [facility] - Annual Wellness Visit 05/30/2016 [...] bedtime 05/25/2016 Appointment: [facility] [phone] [facility] (15 min) Moderate 05/25/2016 Patient Education: Patient Medication Summary Completed 05/25/2016 Patient Education: Obesity Completed 05/25/2016 Care Plan: Referral Order SNOMED-CT : [id number] Pending 05/25/2016 Appointment: Injection 05/10/2016 Patient Education: Patient Medication Summary Completed 05/10/2016 Appointment: Injection 04/26/2016 Patient Education: Patient Medication Summary Completed 04/26/2016 Appointment: Injection 04/11/2016 Patient Education: Patient Medication Summary Completed 04/11/2016 Appointment: Injection 03/31/2016 Patient Education: Patient Medication Summary Completed 03/31/2016 Patient Education: Patient Medication Summary Completed 03/22/2016 Care Plan: [employer] : [id number] Pending 03/22/2016 Appointment: Injection 03/15/2016 Patient Education: [...] concerns. 02/25/2016 App[facility]ment[facility] [phone] [facility] [place] (15 min) Moderate 02/25/2016 Patient [...] the patients recent sleep study - recommended [place] patient eval of pt - nocturnal [...] the patients recent sleep study - recommended [place] patient eval of pt - nocturnal [...] case with Faiza's daughter who had left [facility]. She is interested in looking at assisted living facilities for her mom as Faiza's family is for assisted living placement sooner rather than later. 10/12/2015 Appointment: [facility] (15 min) Moderate 10/12/2015 Patient Education: [...] Summary Completed 08/17/2015 Appointment: [facility] [phone] [facility] (15 min) Moderate 08/11/2015 Appointment: Injection [...] 2 05/19/2015 Appointment: [facility] [phone] [facility] [place] (30 min) Complex 05/19/2015 Patient Education: [...] prn alprazolam. 01/13/2015 Appointment: Yarely Vega WPtel: [address] [place], [place] [address] (15 min) Moderate 01/13/2015 Patient Education: Patient [...] medications. 12/16/2014 App[facility]ment[facility] [phone] [facility] [place] ([place]) New Patient 12/16/2014 Patient [...] case with Faiza's daughter who had left [facility]. She is interested in looking at assisted [...] the patients recent sleep study - recommended [place] home patient eval of pt - nocturnal [...] the patients recent sleep study - recommended [place] patient eval of pt - nocturnal [...]
--- OUTSIDE RECORDS SUMMARY | 2018-12-05 16:14 | XMS REPORT | CCD ---
Author Author [facility] Organization [facility] Address [address] [place] [address] Phone Care Team Providers Care Enlisted Advisor Name Role Phone PP Unavailable CCM Unavailable Summary Purpose Interface Exchange Insurance Providers Payer name Policy type / Coverage type Covered republican ID Effective Begin Date Effective End Date WPS Medicare Part B Medicare Part B [id number] Unknown Unknown Principal Life Insurance Medicare Part B [id number] Unknown Unknown Family history Brother Diagnosis Age At Onset Heart Attack Unknown Mother Diagnosis Age At Onset Hypertension Unknown kidney disease Unknown Stroke Unknown Father Diagnosis Age At Onset Arthritis Unknown Social History Social History Element Codes Description Effective Dates Marital status Unknown Single 12/16/2014 Employment Unknown Retired 12/16/[address]: 1749335 Former smoker 12/16/[address]: 054102451 Never drinks alcohol 12/16/2014 Allergies, Adverse Reactions, Alerts Allergies, Adverse Reactions, Alerts data not found Past Medical History Illness Codes Condition Status Onset Date Resolved Date Vitamin B12 deficiency anemia, unspecified ICD-9: 281.1 ICD-10: D51.9 Active 06/21/2016 Unknown Dysuria ICD-9: 788.1 ICD-10: R30.0 Active 11/07/2016 Unknown 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 Active 07/04/2016 Unknown Low back pain ICD-9: 724.2 ICD-10: [...] Dysuria ICD-9: 788.1 ICD-10: R30.0 11/07/2016 Active 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 07/04/2016 Active Low back pain ICD-9: 724.2 ICD-10: [...] Start Date Stop Date Status Fill Instructions buspirone 15 mg tablet RxNorm: 463444 1 Tablet(s) PO BID 12/12/2016 06/09/2017 Active hydrocodone 5 mg-acetaminophen 325 mg tablet RxNorm: 052735 1-2 Tablet(s) PO Q6 as needed for pain 12/08/2016 12/12/2016 Inactive Topamax 25 mg tablet RxNorm: 298830 TAKE 1 TABLET BY MOUTH EVERY DAY AT BEDTIME 12/06/2016 04/04/2017 Active Generic For:TOPAMAX 25MG 12/06/2016 9:15:13 AM Lac-Hydrin Five 5 % lotion RxNorm: 777461 1 Gram(s) TOP daily 12/02/2016 01/30/2017 Active cyanocobalamin (vit B-12) 1,000 mcg/mL injection solution RxNorm: 244278 Milliliter(s) Inj 11/24/2016 11/24/2016 Inactive Ceftin 500 mg tablet RxNorm: 646142 1 Tablet(s) PO BID 11/11/2016 11/17/2016 Inactive Cipro 500 mg tablet RxNorm: 786077 1 Tablet(s) PO BID 11/11/2016 11/10/2016 Inactive Cipro 500 mg tablet RxNorm: 983124 1 Tablet(s) PO BID 11/11/2016 11/11/2016 Inactive cyanocobalamin (vit B-12) 1,000 mcg/mL injection solution RxNorm: 451562 1 Milliliter(s) Inj 11/07/2016 11/07/2016 Inactive hydrocodone 5 mg-acetaminophen 325 mg tablet RxNorm: 667300 1-2 Tablet(s) PO Q6 as needed for pain 11/02/2016 11/06/2016 Inactive levothyroxine 125 mcg tablet RxNorm: 060031 Tablet(s) 1 Tablet(s) PO daily 10/24/2016 04/21/2017 Active liothyronine 5 mcg tablet RxNorm: 917704 1 Tablet(s) PO BID 10/24/2016 04/21/2017 Active cyanocobalamin (vit B-12) 1,000 mcg/mL injection solution RxNorm: 172876 Milliliter(s) Inj 10/24/2016 10/24/2016 Inactive hydrocodone 5 mg-acetaminophen 325 mg tablet RxNorm: 631295 1-2 Tablet(s) PO Q6 as needed for pain 10/17/2016 10/21/2016 Inactive Keflex 500 mg capsule RxNorm: 071965 1 Capsule(s) PO TID 10/07/2016 10/06/2016 Inactive Keflex 500 mg capsule RxNorm: 036773 1 Capsule(s) PO TID 10/07/2016 10/16/2016 Inactive Please deliver to patient cyanocobalamin (vit B-12) 1,000 mcg/mL injection solution RxNorm: 615076 1 Milliliter(s) Inj 09/29/2016 09/29/2016 Inactive alprazolam 0.25 mg tablet RxNorm: 095193 1 Tablet(s) PO BID 09/20/2016 03/18/2017 Active Zoloft 50 mg tablet RxNorm: 745456 Tablet(s) TAKE 1 TABLET BY MOUTH DAILY 09/14/2016 03/12/2017 Active Generic For:ZOLOFT 50MG Cozaar 100 mg tablet RxNorm: 330797 1 Tablet(s) PO daily 09/14/2016 No Stop Date Active metoprolol tartrate 50 mg tablet RxNorm: 450289 1/2 Tablet(s) PO BID 09/14/2016 12/12/2016 Inactive liothyronine 5 mcg tablet RxNorm: 029760 1 Tablet(s) PO BID 09/14/2016 10/23/2016 Inactive Calmoseptine 0.44 %-20.6 % topical ointment RxNorm: 646197 1 Application TOP BID and as needed to sore on buttocks 09/07/2016 No Stop Date Active cyanocobalamin (vit B-12) 1,000 mcg/mL injection solution RxNorm: 335000 Milliliter(s) Inj 08/29/2016 08/29/2016 Inactive hydrocodone 5 mg-acetaminophen 325 mg tablet RxNorm: 329970 1-2 Tablet(s) PO Q6 as needed for pain 08/29/2016 10/16/2016 Inactive levothyroxine 125 mcg tablet RxNorm: 020157 1 Tablet(s) PO daily 08/25/2016 10/23/2016 Inactive Topamax 25 mg tablet RxNorm: 302676 TAKE 1 TABLET BY MOUTH EVERY DAY AT BEDTIME 08/17/2016 12/05/2016 Inactive Generic For:TOPAMAX 25MG 08/17/2016 2:14:37 PM hydrocodone 5 mg-acetaminophen 325 mg tablet RxNorm: 618791 1-2 Tablet(s) PO Q6 as needed for pain 08/11/2016 08/28/2016 Inactive hydrocodone 5 mg-acetaminophen 325 mg tablet RxNorm: 306407 1 -2 Tablet(s) PO Q6 as needed for pain 08/11/2016 08/18/2016 Inactive hydrocodone 5 mg-acetaminophen 325 mg tablet RxNorm: 405348 1 Tablet(s) PO Q6 as needed for pain 08/05/2016 08/10/2016 Inactive cyanocobalamin (vit B-12) 1,000 mcg/mL injection solution RxNorm: 085229 Milliliter(s) Inj 08/04/2016 08/04/2016 Inactive Norvasc 10 mg tablet RxNorm: 464960 1 Tablet(s) PO daily 07/26/2016 07/20/2017 Active levothyroxine 125 mcg tablet RxNorm: 748580 1 Tablet(s) PO daily 07/21/2016 10/18/2016 Inactive alprazolam 0.25 mg tablet RxNorm: 519270 1 Tablet(s) PO QHS 07/21/2016 09/19/2016 Inactive Norvasc 5 mg tablet RxNorm: 121982 1 Tablet(s) PO daily 07/21/2016 07/25/2016 Inactive cyanocobalamin (vit B-12) 1,000 mcg/mL injection solution RxNorm: 547350 Milliliter(s) Inj 07/21/2016 07/21/2016 Inactive Zoloft 50 mg tablet RxNorm: 707676 Tablet(s) TAKE 1 TABLET BY MOUTH DAILY 07/21/2016 09/13/2016 Inactive Generic For:ZOLOFT 50MG cyanocobalamin (vit B-12) 1,000 mcg/mL injection solution RxNorm: 076990 1 Milliliter(s) Inj 07/05/2016 07/05/2016 Inactive cyanocobalamin (vit B-12) 1,000 mcg/mL injection solution RxNorm: 119249 1 Milliliter(s) Inj 06/22/2016 06/22/2016 Inactive cyanocobalamin (vit B-12) 1,000 mcg/mL injection solution RxNorm: 757528 Milliliter(s) Inj 06/09/2016 06/09/2016 Inactive Aricept 10 mg tablet RxNorm: 460483 1 Tablet(s) PO daily 05/27/2016 05/21/2017 Active Mobic 15 mg tablet RxNorm: 523385 1 Tablet(s) PO daily 05/27/2016 05/21/2017 Active levothyroxine 125 mcg tablet RxNorm: 469890 1 Tablet(s) PO daily 05/25/2016 07/20/2016 Inactive cyanocobalamin (vit B-12) 1,000 mcg/mL injection solution RxNorm: 269427 1 Milliliter(s) Inj 05/25/2016 05/25/2016 Inactive doxycycline hyclate 100 mg capsule RxNorm: 3748751 1 Capsule(s) PO BID 05/16/2016 05/15/2016 Inactive doxycycline hyclate 100 mg capsule RxNorm: 7157283 1 Capsule(s) PO BID 05/16/2016 05/22/2016 Inactive cyanocobalamin (vit B-12) 1,000 mcg/mL injection solution RxNorm: 901353 Milliliter(s) Inj 05/10/2016 05/10/2016 Inactive cyanocobalamin (vit B-12) 1,000 mcg/mL injection solution RxNorm: 494904 Milliliter(s) Inj 04/26/2016 04/26/2016 Inactive Topamax 25 mg tablet RxNorm: 256174 1 Tablet(s) PO QPM 04/22/2016 08/16/2016 Inactive cyanocobalamin (vit B-12) 1,000 mcg/mL injection solution RxNorm: 162236 Milliliter(s) 1 Milliliter(s) Inj [id number] 04/11/2016 12/31/2017 Active liothyronine 5 mcg tablet RxNorm: 204139 1 Tablet(s) PO BID 04/11/2016 09/13/2016 Inactive cyanocobalamin (vit B-12) 1,000 mcg/mL injection solution RxNorm: 858460 Milliliter(s) Inj 04/11/2016 04/11/2016 Inactive cyanocobalamin (vit B-12) 1,000 mcg/mL injection solution RxNorm: 885529 Milliliter(s) Inj 03/31/2016 03/31/2016 Inactive cyanocobalamin (vit B-12) 1,000 mcg/mL injection solution RxNorm: 601147 1 Milliliter(s) Inj 03/15/2016 03/15/2016 Inactive levothyroxine 125 mcg tablet RxNorm: 756432 1 Tablet(s) PO daily 2016 03/03/2016 Inactive levothyroxine 125 mcg tablet RxNorm: 782029 1 Tablet(s) PO daily 2016 05/24/2016 Inactive cyanocobalamin (vit B-12) 1,000 mcg/mL injection solution RxNorm: 137302 Milliliter(s) Inj 02/25/2016 02/25/2016 Inactive cyanocobalamin (vit B-12) 1,000 mcg/mL injection solution RxNorm: 620934 1 Milliliter(s) Inj 02/02/2016 02/02/2016 Inactive sucralfate 1 gram tablet RxNorm: 623604 1 Tablet(s) PO QHS 01/25/2016 No Stop Date Active amiodarone 200 mg tablet RxNorm: 278259 1/2 Tablet(s) PO BID 01/25/2016 No Stop Date Active cyanocobalamin (vit B-12) 1,000 mcg/mL injection solution RxNorm: 353944 Milliliter(s) Inj 01/18/2016 01/18/2016 Inactive cyanocobalamin (vit B-12) 1,000 mcg/mL injection solution RxNorm: 856376 Milliliter(s) Inj 12/29/2015 12/29/2015 Inactive Topamax 25 mg tablet RxNorm: 065195 1 Tablet(s) PO QPM 12/08/2015 04/05/2016 Inactive cyanocobalamin (vit B-12) 1,000 mcg/mL injection solution RxNorm: 975793 Milliliter(s) Inj 12/08/2015 12/08/2015 Inactive Bactrim DS 800 mg-160 mg tablet RxNorm: 415335 1 Tablet(s) PO BID 11/23/2015 11/22/2015 Inactive cyanocobalamin (vit B-12) 1,000 mcg/mL injection solution RxNorm: 561079 Milliliter(s) Inj 11/23/2015 11/23/2015 Inactive Bactrim DS 800 mg-160 mg tablet RxNorm: 882021 1 Tablet(s) PO BID 11/23/2015 11/29/2015 Inactive cyanocobalamin (vit B-12) 1,000 mcg/mL injection solution RxNorm: 192514 Milliliter(s) Inj 11/11/2015 11/11/2015 Inactive amoxicillin 500 mg capsule RxNorm: 358064 1 Capsule(s) PO TID 11/10/2015 11/19/2015 Inactive Zithromax Z-Henrique 250 mg tablet RxNorm: 692007 1 Tablet(s) PO UD 11/10/2015 01/24/2016 Inactive zpack x 1 amoxicillin 500 mg capsule RxNorm: 960321 1 Capsule(s) PO TID 11/10/2015 11/09/2015 Inactive cyanocobalamin (vit B-12) 1,000 mcg/mL injection solution RxNorm: 477469 1 Milliliter(s) Inj 10/29/2015 10/29/2015 Inactive Niagara 3 capsule RxNorm: 1 Capsule(s) PO QAM , 2 Capsules at noon, 1 Capsule QHS 10/13/2015 No Stop Date Active potassium chloride ER 20 mEq tablet,extended release RxNorm: 067657 2 Tablet(s) PO daily at noon 10/13/2015 No Stop Date Active alprazolam 0.25 mg tablet RxNorm: 830513 1 Tablet(s) PO QHS 10/13/2015 07/20/2016 Inactive amiodarone 200 mg tablet RxNorm: 235792 1 Tablet(s) PO BID 10/13/2015 01/24/2016 Inactive cyanocobalamin (vit B-12) 1,000 mcg/mL injection solution RxNorm: 432839 1 Milliliter(s) Inj 10/12/2015 10/12/2015 Inactive Zofran 4 mg tablet RxNorm: 069534 1 Tablet(s) PO daily as needed 10/07/2015 05/24/2016 Inactive Zoloft 50 mg tablet RxNorm: 275746 TAKE 1 TABLET BY MOUTH DAILY 10/05/2015 05/01/2016 Inactive Generic For:ZOLOFT 50MG cyanocobalamin (vit B-12) 1,000 mcg/mL injection solution RxNorm: 380190 1 Milliliter(s) Inj 09/29/2015 09/29/2015 Inactive cyanocobalamin (vit B-12) 1,000 mcg/mL injection solution RxNorm: 433665 1 Milliliter(s) Inj 09/17/2015 09/17/2015 Inactive Norvasc 5 mg tablet RxNorm: 249372 1 Tablet(s) PO daily 09/17/2015 07/20/2016 Inactive liothyronine 5 mcg tablet RxNorm: 261634 1 Tablet(s) PO BID 09/17/2015 03/14/2016 Inactive Zoloft 50 mg tablet RxNorm: 020225 1 Tablet(s) PO daily 09/17/2015 10/04/2015 Inactive buspirone 15 mg tablet RxNorm: 620722 1 Tablet(s) PO BID 09/17/2015 09/10/2016 Inactive buspirone 15 mg tablet RxNorm: 631637 1 Tablet(s) PO BID 09/14/2015 09/16/2015 Inactive Topamax 25 mg tablet RxNorm: 523913 1 Tablet(s) PO QPM 09/03/2015 12/07/2015 Inactive cyanocobalamin (vit B-12) 1,000 mcg/mL injection solution RxNorm: 494511 1 Milliliter(s) Inj 09/03/2015 09/03/2015 Inactive cyanocobalamin (vit B-12) 1,000 mcg/mL injection solution RxNorm: 384757 Milliliter(s) Inj 08/17/2015 08/17/2015 Inactive cyanocobalamin (vit B-12) 1,000 mcg/mL injection solution RxNorm: 811926 Milliliter(s) Inj 08/06/2015 08/06/2015 Inactive levothyroxine 150 mcg tablet RxNorm: 528552 1 Tablet(s) PO daily 07/22/2015 03/03/2016 Inactive Aricept 10 mg tablet RxNorm: 629069 1 Tablet(s) PO daily 07/22/2015 05/26/2016 Inactive Mobic 15 mg tablet RxNorm: 221225 1 Tablet(s) PO daily 07/22/2015 05/26/2016 Inactive cyanocobalamin (vit B-12) 1,000 mcg/mL injection solution RxNorm: 286755 Milliliter(s) Inj 07/22/2015 07/22/2015 Inactive liothyronine 5 mcg tablet RxNorm: 717413 1 Tablet(s) PO BID 07/22/2015 09/16/2015 Inactive cyanocobalamin (vit B-12) 1,000 mcg/mL injection solution RxNorm: 856221 Milliliter(s) Inj 07/08/2015 07/08/2015 Inactive cyanocobalamin (vit B-12) 1,000 mcg/mL injection solution RxNorm: 925862 Milliliter(s) Inj 06/23/2015 06/23/2015 Inactive cyanocobalamin (vit B-12) 1,000 mcg/mL injection solution RxNorm: 393619 1 Milliliter(s) Inj 06/08/2015 06/08/2015 Inactive cyanocobalamin (vit B-12) 1,000 mcg/mL injection solution RxNorm: 227805 Milliliter(s) Inj 05/27/2015 05/27/2015 Inactive Aricept 10 mg tablet RxNorm: 708772 1 Tablet(s) PO daily 05/20/2015 07/21/2015 Inactive Zofran 4 mg tablet RxNorm: 586397 1 Tablet(s) PO daily as needed 05/20/2015 06/18/2015 Inactive alprazolam 0.25 mg tablet RxNorm: 717075 1 Tablet(s) PO BID 05/20/2015 10/12/2015 Inactive Mobic 15 mg tablet RxNorm: 035048 1 Tablet(s) PO daily 05/20/2015 07/21/2015 Inactive tramadol ER 100 mg tablet,extended release 24 hr RxNorm: 504510 1 Tablet(s) PO Q6 as needed 05/13/2015 No Stop Date Active cyanocobalamin (vit B-12) 1,000 mcg/mL injection solution RxNorm: 653084 1 Milliliter(s) Inj 05/12/2015 05/12/2015 Inactive Topamax 25 mg tablet RxNorm: 848509 1 Tablet(s) PO BID (start at one pill at bedtime x 1week then twice daily thereafter) 05/12/2015 09/02/2015 Inactive cyanocobalamin (vit B-12) 1,000 mcg/mL injection kit RxNorm: 405584 kit Inj 04/30/2015 04/30/2015 Inactive cyanocobalamin (vit B-12) 1,000 mcg/mL injection solution RxNorm: 466763 Milliliter(s) Inj 04/16/2015 04/16/2015 Inactive levothyroxine 150 mcg tablet RxNorm: 636473 1 Tablet(s) PO daily 04/08/2015 07/21/2015 Inactive cyanocobalamin (vit B-12) 1,000 mcg/mL injection solution RxNorm: 585220 Milliliter(s) 1 Milliliter(s) Inj [id number] 04/08/2015 04/10/2016 Inactive Cytomel 5 mcg tablet RxNorm: 164168 1 Tablet(s) PO BID 04/08/2015 10/12/2015 Inactive Cytomel 5 mcg tablet RxNorm: 228547 1 Tablet(s) PO BID 04/07/2015 04/07/2015 Inactive Cytomel 5 mcg tablet RxNorm: 874893 1 Tablet(s) PO BID 04/07/2015 04/06/2015 Inactive cyanocobalamin (vit B-12) 1,000 mcg/mL injection solution RxNorm: 190946 Milliliter(s) Inj 04/02/2015 04/02/2015 Inactive cyanocobalamin (vit B-12) 1,000 mcg/mL injection solution RxNorm: 910956 Milliliter(s) Inj 03/18/2015 03/18/2015 Inactive cyanocobalamin (vit B-12) 1,000 mcg/mL injection solution RxNorm: 572085 Milliliter(s) 1 Milliliter(s) Inj [id number] 03/18/2015 04/07/2015 Inactive cyanocobalamin (vit B-12) 1,000 mcg/mL injection solution RxNorm: 600748 1 Milliliter(s) Inj D1hravn 03/16/2015 03/17/2015 Inactive cyanocobalamin (vit B-12) 1,000 mcg/mL injection solution RxNorm: 408126 Milliliter(s) Inj 03/03/2015 03/03/2015 Inactive cyanocobalamin (vit B-12) 1,000 mcg/mL injection solution RxNorm: 189110 Milliliter(s) Inj 02/18/2015 02/18/2015 Inactive cyanocobalamin (vit B-12) 1,000 mcg/mL injection solution RxNorm: 333714 Milliliter(s) Inj 02/04/2015 02/04/2015 Inactive cyanocobalamin (vit B-12) 1,000 mcg/mL injection solution RxNorm: 593084 Milliliter(s) Inj 01/22/2015 01/22/2015 Inactive Lac-Hydrin Five 5 % lotion RxNorm: 296561 1 TOP daily 01/13/2015 03/13/2015 Inactive Lac-Hydrin Five 5 % lotion RxNorm: 573360 1 TOP daily 01/13/2015 01/12/2015 Inactive cyanocobalamin (vit B-12) 1,000 mcg/mL injection solution RxNorm: 534597 Milliliter(s) Inj 01/08/2015 01/08/2015 Inactive cyanocobalamin (vit B-12) 1,000 mcg/mL injection solution RxNorm: 271653 Milliliter(s) Inj 12/25/2014 12/25/2014 Inactive levothyroxine 150 mcg tablet RxNorm: 059236 1 Tablet(s) PO daily 12/24/2014 04/07/2015 Inactive tramadol 50 mg tablet RxNorm: 850007 1-2 Tablet(s) PO Q6 as needed 12/17/2014 05/12/2015 Inactive alprazolam 0.25 mg tablet RxNorm: 945076 1 Tablet(s) PO BID 12/17/2014 04/15/2015 Inactive Pradaxa 150 mg capsule RxNorm: 7790820 1 Capsule(s) PO BID 12/16/2014 No Stop Date Active metoprolol tartrate 50 mg tablet RxNorm: 278635 1/2 Tablet(s) PO BID 12/16/2014 09/13/2016 Inactive buspirone 15 mg tablet RxNorm: 422631 1 Tablet(s) PO BID 12/16/2014 09/13/2015 Inactive cyanocobalamin (vit B-12) 1,000 mcg/mL injection solution RxNorm: 650389 1 Milliliter(s) Inj [id number] 12/16/2014 03/15/2015 Inactive cyanocobalamin (vit B-12) 1,000 mcg/mL injection solution RxNorm: 944561 1 Milliliter(s) Inj [id number] 12/16/2014 12/15/2014 Inactive sucralfate 1 gram tablet RxNorm: 065164 Tablet(s) PO QID 12/16/2014 12/10/2015 Inactive cyanocobalamin (vit B-12) 1,000 mcg/mL injection solution RxNorm: 631811 Milliliter(s) Inj 12/10/2014 12/10/2014 Inactive cyanocobalamin (vit B-12) 1,000 mcg/mL injection solution RxNorm: 697609 Milliliter(s) Inj 11/26/2014 11/26/2014 Inactive Zoloft 50 mg tablet RxNorm: 381405 1 Tablet(s) PO daily 11/24/2014 06/21/2015 Inactive Zoloft 50 mg tablet RxNorm: 283481 1 Tablet(s) PO daily 11/24/2014 11/23/2014 Inactive cyanocobalamin (vit B-12) 1,000 mcg/mL injection kit RxNorm: 576885 Milliliter(s) Inj 11/12/2014 11/12/2014 Inactive cyanocobalamin (vit B-12) 1,000 mcg/mL injection solution RxNorm: 470505 Milliliter(s) Inj 10/28/2014 10/28/2014 Inactive [SAVINGS FOR NON-COVERED DRUGS -- BIN:[id number], PCN: [id number], Group: [id number], ID# [id number], Questions: . THIS IS NOT INSURANCE.] promethazine oral RxNorm: 8745 oral No Start Date Active digoxin 125 mcg tablet RxNorm: 866309 Tablet(s) PO every other day No Start Date Active furosemide 40 mg tablet RxNorm: 397939 1 Tablet(s) PO daily No Start Date Active Vitamin D3 5,000 unit tablet RxNorm: 236734 1 Tablet(s) PO daily No Start Date Active erythromycin 250 mg capsule,delayed release RxNorm: 544341 1 Capsule(s) PO AC No Start Date Active Protonix 40 mg tablet,delayed release RxNorm: 036554 1 Tablet(s) PO BID No Start Date Active Cozaar 100 mg tablet RxNorm: 651626 1 Tablet(s) PO daily No Start Date 09/13/2016 Inactive sucralfate 1 gram tablet RxNorm: 656458 Tablet(s) PO QID No Start Date 12/15/2014 Inactive amiodarone 200 mg tablet RxNorm: 877147 2 Tablet(s) PO daily No Start Date 10/13/2015 Inactive buspirone 15 mg tablet RxNorm: 284007 1 Tablet(s) PO daily No Start Date 12/15/2014 Inactive potassium chloride ER 20 mEq tablet,extended release RxNorm: 091883 1 Tablet(s) PO daily No Start Date 10/12/2015 Inactive Prilosec 40 mg capsule,delayed release RxNorm: 121116 1 Capsule(s) PO daily No Start Date 09/02/2015 Inactive Niagara 3 capsule RxNorm: Capsule(s) PO No Start Date 10/12/2015 Inactive alprazolam 0.25 mg tablet RxNorm: 159063 Tablet(s) PO QHS No Start Date 12/16/2014 Inactive levothyroxine 125 mcg tablet RxNorm: 165224 1 Tablet(s) PO daily No Start Date 12/23/2014 Inactive liothyronine 5 mcg tablet RxNorm: 131089 1 Tablet(s) PO BID No Start Date 07/21/2015 Inactive Mobic 15 mg tablet RxNorm: 857248 Tablet(s) PO daily No Start Date 05/19/2015 Inactive Norvasc 5 mg tablet RxNorm: 918001 1 Tablet(s) PO daily No Start Date 09/16/2015 Inactive Zofran 4 mg tablet RxNorm: 232252 1 Tablet(s) PO daily as needed No Start Date 05/19/2015 Inactive tramadol 50 mg tablet RxNorm: 398275 1 Tablet(s) PO daily as needed No Start Date 12/16/2014 Inactive amiodarone 200 mg tablet RxNorm: 171518 1 Tablet(s) PO daily No Start Date 10/12/2015 Inactive meclizine 25 mg tablet RxNorm: 346661 Tablet(s) PO as needed No Start Date 05/24/2016 Inactive Pradaxa 150 mg capsule RxNorm: 4379511 1 Capsule(s) PO daily No Start Date 12/15/2014 Inactive metoprolol tartrate 50 mg tablet RxNorm: 201503 1/2 Tablet(s) PO No Start Date 12/15/2014 Inactive Aricept 10 mg tablet RxNorm: 417302 Tablet(s) PO daily No Start Date 05/19/2015 Inactive Calmoseptine 0.44 %-20.6 % topical ointment RxNorm: 526388 1 Application TOP BID and as needed to sore on buttocks No Start Date 09/06/2016 Inactive Zithromax Z-Henrique 250 mg tablet RxNorm: 573216 1 Tablet(s) PO UD No Start Date 11/09/2015 Inactive zpack x 1 Medication Administered Medication Codes Instructions Start Date Status cyanocobalamin (vit B-12) 1,000 mcg/mL injection solution RxNorm: 200195 Milliliter 11/24/2016 No longer Active cyanocobalamin (vit B-12) 1,000 mcg/mL injection solution RxNorm: 882940 1Milliliter 11/07/2016 No longer Active cyanocobalamin (vit B-12) 1,000 mcg/mL injection solution RxNorm: 681525 Milliliter 10/24/2016 No longer Active cyanocobalamin (vit B-12) 1,000 mcg/mL injection solution RxNorm: 902972 1Milliliter 09/29/2016 No longer Active cyanocobalamin (vit B-12) 1,000 mcg/mL injection solution RxNorm: 678240 Milliliter 08/29/2016 No longer Active cyanocobalamin (vit B-12) 1,000 mcg/mL injection solution RxNorm: 003920 Milliliter 08/04/2016 No longer Active cyanocobalamin (vit B-12) 1,000 mcg/mL injection solution RxNorm: 507898 Milliliter 07/21/2016 No longer Active cyanocobalamin (vit B-12) 1,000 mcg/mL injection solution RxNorm: 261292 1Milliliter 07/05/2016 No longer Active cyanocobalamin (vit B-12) 1,000 mcg/mL injection solution RxNorm: 627751 1Milliliter 06/22/2016 No longer Active cyanocobalamin (vit B-12) 1,000 mcg/mL injection solution RxNorm: 252018 Milliliter 06/09/2016 No longer Active cyanocobalamin (vit B-12) 1,000 mcg/mL injection solution RxNorm: 988097 1Milliliter 05/25/2016 No longer Active cyanocobalamin (vit B-12) 1,000 mcg/mL injection solution RxNorm: 071594 Milliliter 05/10/2016 No longer Active cyanocobalamin (vit B-12) 1,000 mcg/mL injection solution RxNorm: 961268 Milliliter 04/26/2016 No longer Active cyanocobalamin (vit B-12) 1,000 mcg/mL injection solution RxNorm: 420184 Milliliter 04/11/2016 No longer Active cyanocobalamin (vit B-12) 1,000 mcg/mL injection solution RxNorm: 730520 Milliliter 03/31/2016 No longer Active cyanocobalamin (vit B-12) 1,000 mcg/mL injection solution RxNorm: 869694 1Milliliter 03/15/2016 No longer Active cyanocobalamin (vit B-12) 1,000 mcg/mL injection solution RxNorm: 761737 Milliliter 02/25/2016 No longer Active cyanocobalamin (vit B-12) 1,000 mcg/mL injection solution RxNorm: 464406 1Milliliter 02/02/2016 No longer Active cyanocobalamin (vit B-12) 1,000 mcg/mL injection solution RxNorm: 358910 Milliliter 01/18/2016 No longer Active cyanocobalamin (vit B-12) 1,000 mcg/mL injection solution RxNorm: 060310 Milliliter 12/29/2015 No longer Active cyanocobalamin (vit B-12) 1,000 mcg/mL injection solution RxNorm: 992043 Milliliter 12/08/2015 No longer Active cyanocobalamin (vit B-12) 1,000 mcg/mL injection solution RxNorm: 069388 Milliliter 11/23/2015 No longer Active cyanocobalamin (vit B-12) 1,000 mcg/mL injection solution RxNorm: 752588 Milliliter 11/11/2015 No longer Active cyanocobalamin (vit B-12) 1,000 mcg/mL injection solution RxNorm: 948449 1Milliliter 10/29/2015 No longer Active cyanocobalamin (vit B-12) 1,000 mcg/mL injection solution RxNorm: 641832 1Milliliter 10/12/2015 No longer Active cyanocobalamin (vit B-12) 1,000 mcg/mL injection solution RxNorm: 939774 1Milliliter 09/29/2015 No longer Active cyanocobalamin (vit B-12) 1,000 mcg/mL injection solution RxNorm: 804666 1Milliliter 09/17/2015 No longer Active cyanocobalamin (vit B-12) 1,000 mcg/mL injection solution RxNorm: 765990 1Milliliter 09/03/2015 No longer Active cyanocobalamin (vit B-12) 1,000 mcg/mL injection solution RxNorm: 787010 Milliliter 08/17/2015 No longer Active cyanocobalamin (vit B-12) 1,000 mcg/mL injection solution RxNorm: 315918 Milliliter 08/06/2015 No longer Active cyanocobalamin (vit B-12) 1,000 mcg/mL injection solution RxNorm: 216135 Milliliter 07/22/2015 No longer Active cyanocobalamin (vit B-12) 1,000 mcg/mL injection solution RxNorm: 675776 [facility] 07/08/2015 No longer Active cyanocobalamin (vit B-12) 1,000 mcg/mL injection solution RxNorm: 788265 [facility] 06/23/2015 No longer Active cyanocobalamin (vit B-12) 1,000 mcg/mL injection solution RxNorm: 411204 1[facility] 06/08/2015 No longer Active cyanocobalamin (vit B-12) 1,000 mcg/mL injection solution RxNorm: 561368 [facility] 05/27/2015 No longer Active cyanocobalamin (vit B-12) 1,000 mcg/mL injection solution RxNorm: 888483 1[facility] 05/12/2015 No longer Active cyanocobalamin (vit B-12) 1,000 mcg/mL injection kit RxNorm: 235204 kit 04/30/2015 No longer Active cyanocobalamin (vit B-12) 1,000 mcg/mL injection solution RxNorm: 596424 Milliliter 04/16/2015 No longer Active cyanocobalamin (vit B-12) 1,000 mcg/mL injection solution RxNorm: 463656 Milliliter 04/02/2015 No longer Active cyanocobalamin (vit B-12) 1,000 mcg/mL injection solution RxNorm: 852935 Milliliter 03/18/2015 No longer Active cyanocobalamin (vit B-12) 1,000 mcg/mL injection solution RxNorm: 485469 Milliliter 03/03/2015 No longer Active cyanocobalamin (vit B-12) 1,000 mcg/mL injection solution RxNorm: 048744 Milliliter 02/18/2015 No longer Active cyanocobalamin (vit B-12) 1,000 mcg/mL injection solution RxNorm: 158550 Milliliter 02/04/2015 No longer Active cyanocobalamin (vit B-12) 1,000 mcg/mL injection solution RxNorm: 860122 Milliliter 01/22/2015 No longer Active cyanocobalamin (vit B-12) 1,000 mcg/mL injection solution RxNorm: 093903 Milliliter 01/08/2015 No longer Active cyanocobalamin (vit B-12) 1,000 mcg/mL injection solution RxNorm: 211556 Milliliter 12/25/2014 No longer Active cyanocobalamin (vit B-12) 1,000 mcg/mL injection solution RxNorm: 831994 Milliliter 12/10/2014 No longer Active cyanocobalamin (vit B-12) 1,000 mcg/mL injection solution RxNorm: 665803 Milliliter 11/26/2014 No longer Active cyanocobalamin (vit B-12) 1,000 mcg/mL injection kit RxNorm: 940870 Milliliter 11/12/2014 No longer Active cyanocobalamin (vit B-12) 1,000 mcg/mL injection solution RxNorm: 120710 Milliliter 10/28/2014 No longer Active Immunizations Vaccine Codes Date Status Pneumococcal (Adult) CVX: 33 05/25/2016 completed Influenza CVX: 141 03/15/2016 completed Assessments Condition Codes Effective Dates Vitamin B12 deficiency anemia, unspecified ICD-10: D51.9 ICD-9: 281.1 11/24/2016 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 ICD-9: 281.1 11/07/2016 Dysuria ICD-10: R30.0 ICD-9: 788.1 11/07/2016 Low [...] Item Item Code Result Date Culture Urine [id number] URINE CULTURE SEE NOTES 11/10/2016 Culture Urine [id number] Continued Results 11/10/2016 Urine Culture Ucult Complete [...] Ord15 CALCIUM 9.3 mg/dL 09/29/2016 Free T4 Odz618 FREE T4 0.99 ng/dL 09/07/2016 Cbc With [...] 91.7 fl 09/07/2016 Cbc With Differential Ord2 [place]% 9.8 % 09/07/2016 Cbc With Differential Ord2 [...] 1.75 K/ul 09/07/2016 Cbc With Differential Ord2 [place] ABS# 0.6 K/ul 09/07/2016 Cbc With Differential Ord2 Eos ABS# 0.1 K/ul 09/07/2016 Cbc With Differential Ord2 Baso ABS# 0.0 K/ul 09/07/2016 Tsh Ord6 hTSH II 1.41 uIU/mL 09/07/2016 Culture Urine [id number] URINE CULTURE SEE NOTES 06/27/2016 Lipid Ord30 CHOL 196 mg/dL 06/22/2016 Lipid Ord30 HDL 63.0 mg/dl 06/22/2016 Lipid Ord30 TRIG 154 mg/dL 06/22/2016 Lipid Ord30 LDL 102 mg/dL 06/22/2016 Lipid Ord30 C/HDL 3.1 Ratio 06/22/2016 Hepatic Ujd723 ALBUMIN 4.2 g/dL 06/22/2016 Hepatic Zrv932 TPRO 7.0 g/dL 06/22/2016 Hepatic Erm429 GLOB 2.8 g/dL 06/22/2016 Hepatic Keb404 A/G Ratio 1.5 Ratio 06/22/2016 Hepatic Qxm303 ALK PHOS 54 U/L 06/22/2016 Hepatic Enp524 ALT(SGPT) 30 U/L 06/22/2016 Hepatic Qjf492 AST(SGOT) 24 U/L 06/22/2016 Hepatic Ozi871 BILI T 1.1 mg/dL 06/22/2016 Hepatic Wae956 BILI D 0.2 mg/dL 06/22/2016 Hepatic Iai994 BILI I 0.9 mg/dL 06/22/2016 Comp Metabolic Yta372 NA 139 mEq/L 06/14/2016 Comp Metabolic Vks188 K 4.6 mEq/L 06/14/2016 Comp Metabolic Ptt144 CL 108 mEq/L 06/14/2016 Comp Metabolic Lak192 CO2 22.0 mEq/L 06/14/2016 Comp Metabolic Zrv243 ANION GAP 14 06/14/2016 Comp Metabolic Wwa231 GLUCOSE 114 mg/dL 06/14/2016 Comp Metabolic Bus297 Creat 1.2 mg/dL 06/14/2016 Comp Metabolic Til368 eGFR 48 ml/min/1.73m2 06/14/2016 Comp Metabolic Alg156 BUN 24 mg/dL 06/14/2016 Comp Metabolic Cua412 B/C Ratio 20.9 Ratio 06/14/2016 Comp Metabolic Edx167 CALCIUM 9.9 mg/dL 06/14/2016 Comp Metabolic Ypc163 ALK PHOS 47 U/L 06/14/2016 Comp Metabolic Cax299 AST(SGOT) 28 U/L 06/14/2016 Comp Metabolic Inn506 ALT(SGPT) 32 U/L 06/14/2016 Comp Metabolic Djz563 BILI T 0.9 mg/dL 06/14/2016 Comp Metabolic Erc579 ALBUMIN 4.1 g/dL 06/14/2016 Comp Metabolic Mqe464 TPRO 6.9 g/dL 06/14/2016 Comp Metabolic Sns125 GLOB 2.8 g/dL 06/14/2016 Comp Metabolic Whm340 A/G Ratio 1.5 Ratio 06/14/2016 Comp Metabolic Fii625 Osmo 282 mOsmo 06/14/2016 Tsh Ord6 hTSH II 1.26 uIU/mL 06/14/2016 Free T4 Lcu883 FREE T4 1.09 ng/dL 06/14/2016 Tsh Ord6 hTSH II 0.28 uIU/mL 02/02/2016 Digoxin Ord9 DIGOXIN 0.7 NG/ML 02/02/2016 Free T4 Osv462 FREE T4 1.23 ng/dL 02/02/2016 Hepatic Qpo857 ALBUMIN 4.0 g/dL 02/02/2016 Hepatic Yqh168 TPRO 7.0 g/dL 02/02/2016 Hepatic Cer201 GLOB 3.0 g/dL 02/02/2016 Hepatic Jdq979 A/G Ratio 1.3 Ratio 02/02/2016 Hepatic Xlp782 ALK PHOS 57 U/L 02/02/2016 Hepatic Rti539 ALT(SGPT) 62 U/L 02/02/2016 Hepatic Seh389 AST(SGOT) 54 U/L 02/02/2016 Hepatic Fuf933 BILI T 0.8 mg/dL 02/02/2016 Hepatic Tuu040 BILI D 0.2 mg/dL 02/02/2016 Hepatic Hph546 BILI I 0.6 mg/dL 02/02/2016 Urine Culture Ucult Preliminary No Growth Day 1 11/25/2015 Urine Culture Ucult Complete No Growth Day 2 11/25/2015 Hepatic Xyh845 ALBUMIN 3.9 g/dL 11/11/2015 Hepatic Ica026 TPRO 7.0 g/dL 11/11/2015 Hepatic Xjb918 GLOB 3.1 g/dL 11/11/2015 Hepatic Zoo856 A/G Ratio 1.3 Ratio 11/11/2015 Hepatic Rze417 ALK PHOS 63 U/L 11/11/2015 Hepatic Ekx713 ALT(SGPT) 107 U/L 11/11/2015 Hepatic Hfb069 AST(SGOT) 101 U/L 11/11/2015 Hepatic Rap109 BILI T 0.6 mg/dL 11/11/2015 Hepatic Qtn693 BILI D 0.1 mg/dL 11/11/2015 Hepatic Znt950 BILI I 0.5 mg/dL 11/11/2015 Comp Metabolic Zex794 NA 138 mEq/L 10/29/2015 Comp Metabolic Gxh936 K 5.0 mEq/L 10/29/2015 Comp Metabolic Iyp598 CL 105 mEq/L 10/29/2015 Comp Metabolic Zbs569 CO2 23.0 mEq/L 10/29/2015 Comp Metabolic Zae370 ANION GAP 15 10/29/2015 Comp Metabolic Rzj043 GLUCOSE 105 mg/dL 10/29/2015 Comp Metabolic Zfk603 Creat 1.0 mg/dL 10/29/2015 Comp Metabolic Ufq788 eGFR 55 ml/min/1.73m2 10/29/2015 Comp Metabolic Jjq152 BUN 20 mg/dL 10/29/2015 Comp Metabolic Oek640 B/C Ratio 19.4 Ratio 10/29/2015 Comp Metabolic Cfb361 CALCIUM 8.8 mg/dL 10/29/2015 Comp Metabolic Wyh012 ALK PHOS 56 U/L 10/29/2015 Comp Metabolic Gld251 AST(SGOT) 66 U/L 10/29/2015 Comp Metabolic Emd888 ALT(SGPT) 78 U/L 10/29/2015 Comp Metabolic Tpi881 BILI T 0.7 mg/dL 10/29/2015 Comp Metabolic Vkx149 ALBUMIN 3.6 g/dL 10/29/2015 Comp Metabolic Nym102 TPRO 6.6 g/dL 10/29/2015 Comp Metabolic Ssn548 GLOB 3.0 g/dL 10/29/2015 Comp Metabolic Pzp218 A/G Ratio 1.2 Ratio 10/29/2015 Comp Metabolic Naq482 Osmo 279 mOsmo 10/29/2015 Comp Metabolic Pwh948 NA 136 mEq/L 09/03/2015 Comp Metabolic Tgr534 K 4.4 mEq/L 09/03/2015 Comp Metabolic Pnl205 CL 103 mEq/L 09/03/2015 Comp Metabolic Rcw624 CO2 24.0 mEq/L 09/03/2015 Comp Metabolic Eet404 ANION GAP 13 09/03/2015 Comp Metabolic Qec310 GLUCOSE 87 mg/dL 09/03/2015 Comp Metabolic Rfk983 Creat 1.1 mg/dL 09/03/2015 Comp Metabolic Ldn721 eGFR 53 ml/min/1.73m2 09/03/2015 Comp Metabolic Fht815 BUN 17 mg/dL 09/03/2015 Comp Metabolic Jgk953 B/C Ratio 16.2 Ratio 09/03/2015 Comp Metabolic Qow062 CALCIUM 9.0 mg/dL 09/03/2015 Comp Metabolic Ygo801 ALK PHOS 55 U/L 09/03/2015 Comp Metabolic Xvl046 AST(SGOT) 83 U/L 09/03/2015 Comp Metabolic Xed120 ALT(SGPT) 126 U/L 09/03/2015 Comp Metabolic Bgo864 BILI T 0.9 mg/dL 09/03/2015 Comp Metabolic Tia060 ALBUMIN 3.9 g/dL 09/03/2015 Comp Metabolic Gpg596 TPRO 6.8 g/dL 09/03/2015 Comp Metabolic Vgc097 GLOB 2.9 g/dL 09/03/2015 Comp Metabolic Pyb541 A/G Ratio 1.4 Ratio 09/03/2015 Comp Metabolic Eqv219 Osmo 273 mOsmo 09/03/2015 Total T3 Ord42 TT3 0.6 ng/ml 07/09/2015 Tsh Ord6 hTSH II 1.62 uIU/mL 07/09/2015 Total T3 Ord42 TT3 0.5 ng/ml 04/02/2015 Free T4 Cnx653 FREE T4 1.23 ng/dL 04/02/2015 Tsh Ord6 [...] Procedure Codes Date THER/PROPH/DIAG INJ SC/IM CPT-4: 32161Tsxcxia 11/24/2016 URINALYSIS NONAUTO W/O SCOPE CPT-4: 00231Odgvqbi 11/07/2016 THER/PROPH/DIAG INJ SC/IM CPT-4: 70641Ddmeqai 11/07/2016 THER/PROPH/DIAG INJ SC/IM CPT-4: 86767Stjxjdr 10/24/2016 THER/PROPH/DIAG INJ SC/IM CPT-4: 48321Eoetqbp 09/29/2016 THER/PROPH/DIAG INJ SC/IM CPT-4: 95848Lvfejdy 08/29/2016 THER/PROPH/DIAG INJ SC/IM CPT-4: 05491Qbkqkea 08/04/2016 THER/PROPH/DIAG INJ SC/IM CPT-4: 83152Wbfipvs 07/21/2016 THER/PROPH/DIAG INJ SC/IM CPT-4: 74053Bcoomog 07/05/2016 THER/PROPH/DIAG INJ SC/IM CPT-4: 49335Xlozlps 06/22/2016 URINALYSIS NONAUTO W/O SCOPE CPT-4: 66294Ozjfylk 06/22/2016 THER/PROPH/DIAG INJ SC/IM CPT-4: 11612Thpnjlm 06/09/2016 PPPS, SUBSEQ VISIT CPT-4: Y7070Lfatgah 05/30/2016 ADMIN PNEUMOCOCCAL VACCINE SNOMED CT: 86260877 CPT-4: Q1361Dxeyinw 05/25/2016 Pneumococcal Polysaccharide Vaccine, 23-Valent, Ad CPT-4: 15021Ewjotxf 05/25/2016 THER/PROPH/DIAG INJ SC/IM CPT-4: 31172Jpwxwxy 05/25/2016 THER/PROPH/DIAG INJ SC/IM CPT-4: 20178Jbfusip 05/10/2016 TRIAMCINOLONE ACET INJ NOS CPT-4: D2793Ozpimnp 04/26/2016 VITAMIN B12 INJECTION CPT-4: J2850Tbhvmme 04/26/2016 THER/PROPH/DIAG INJ SC/IM CPT-4: 03564Wublhqt 04/11/2016 THER/PROPH/DIAG INJ SC/IM CPT-4: 17620Qlctsaz 03/31/2016 ADMIN INFLUENZA VIRUS VAC CPT-4: Y4079Fxvrjuu 03/15/2016 FLU VACC 4 STEPHANIE 3 YRS PLUS IM SNOMED CT: 75020540 CPT-4: 42605Ewkigqg 03/15/2016 THER/PROPH/DIAG INJ SC/IM CPT-4: 44081Ldpqjas 02/25/2016 THER/PROPH/DIAG INJ SC/IM CPT-4: 15901Nvyuwhj 02/02/2016 THER/PROPH/DIAG INJ SC/IM CPT-4: 42178Ambomsl 01/18/2016 VITAMIN B12 INJECTION CPT-4: G2647Ppeewtc 12/29/2015 THER/PROPH/DIAG INJ SC/IM CPT-4: 41455Nwmtnup 12/29/2015 THER/PROPH/DIAG INJ SC/IM CPT-4: 23386Apampgm 12/08/2015 THER/PROPH/DIAG INJ SC/IM CPT-4: 02740Soatybr 11/23/2015 URINALYSIS NONAUTO W/O SCOPE CPT-4: 99715Kcjskdg 11/23/2015 THER/PROPH/DIAG INJ SC/IM CPT-4: 50732Demhwyx 11/11/2015 THER/PROPH/DIAG INJ SC/IM CPT-4: 36675Qwqzpon 10/29/2015 THER/PROPH/DIAG INJ SC/IM CPT-4: 23256Vappjgt 10/12/2015 VITAMIN B12 INJECTION CPT-4: S2164Lpsrtca 10/12/2015 THER/PROPH/DIAG INJ SC/IM CPT-4: 14566Vabuptu 09/29/2015 THER/PROPH/DIAG INJ SC/IM CPT-4: 78308Wiwtqru 09/17/2015 THER/PROPH/DIAG INJ SC/IM CPT-4: 82783Odmxmjj 09/03/2015 THER/PROPH/DIAG INJ SC/IM CPT-4: 32510Erbabvi 08/17/2015 THER/PROPH/DIAG INJ SC/IM CPT-4: 17091Livobbt 08/06/2015 THER/PROPH/DIAG INJ SC/IM CPT-4: 99732Pcryrup 07/22/2015 THER/PROPH/DIAG INJ SC/IM CPT-4: 56346Hnjqtos 07/08/2015 THER/PROPH/DIAG INJ SC/IM CPT-4: 29870Koccznl 06/23/2015 THER/PROPH/DIAG INJ SC/IM CPT-4: 73847Dldtilm 06/08/2015 THER/PROPH/DIAG INJ SC/IM CPT-4: 95791Phamcdn 05/27/2015 DESTRUCT PREMALG LESION CPT-4: 11667Rqwlsmr 05/19/2015 DESTRUCT PREMALG LES 2-14 CPT-4: 33131Azdigjg 05/19/2015 THER/PROPH/DIAG INJ SC/IM CPT-4: 05509Sbsoiip 05/12/2015 VITAMIN B12 INJECTION CPT-4: Z1634Dmeyzjm 05/12/2015 THER/PROPH/DIAG INJ SC/IM CPT-4: 12050Eneqwqx 04/30/2015 VITAMIN B12 INJECTION CPT-4: G8166Sltvdkb 04/30/2015 THER/PROPH/DIAG INJ SC/IM CPT-4: 90991Lxfbpwh 04/16/2015 THER/PROPH/DIAG INJ SC/IM CPT-4: 39502Bzfzbfd 04/02/2015 VITAMIN B12 INJECTION CPT-4: L1039Jpudrzh 04/02/2015 THER/PROPH/DIAG INJ SC/IM CPT-4: 89000Tcmvbdg 03/18/2015 THER/PROPH/DIAG INJ SC/IM CPT-4: 28316Ohmjxvs 03/03/2015 THER/PROPH/DIAG INJ SC/IM CPT-4: 09637Bkfrytt 02/18/2015 THER/PROPH/DIAG INJ SC/IM CPT-4: 79339Mgnneej 02/04/2015 VITAMIN B12 INJECTION CPT-4: L2784Tszmwjg 02/04/2015 THER/PROPH/DIAG INJ SC/IM CPT-4: 08868Uttqgwo 01/22/2015 THER/PROPH/DIAG INJ SC/IM CPT-4: 48447Wlhzmeg 01/08/2015 VITAMIN B12 INJECTION CPT-4: N8545Plbjnth 01/08/2015 THER/PROPH/DIAG INJ SC/IM CPT-4: 26547Hjfamap 12/25/2014 VITAMIN B12 INJECTION CPT-4: V5632Tgylznk 12/25/2014 THER/PROPH/DIAG INJ SC/IM CPT-4: 10529Urosjyy 12/10/2014 VITAMIN B12 INJECTION CPT-4: P3425Fqrwzms 12/10/2014 THER/PROPH/DIAG INJ SC/IM CPT-4: 92640Nkplvvd 11/26/2014 VITAMIN B12 INJECTION CPT-4: G1576Snzefgn 11/26/2014 THER/PROPH/DIAG INJ SC/IM CPT-4: 86551Ejzizvv 11/12/2014 VITAMIN B12 INJECTION CPT-4: B2287Rjawuqu 11/12/2014 THER/PROPH/DIAG INJ SC/IM CPT-4: 03359Toeodxt 10/28/2014 Vital Signs Date Vital 11/02/2016 Blood Pressure 1: 148/78 Code: 8480-6 BMI: 29.7 Code: 40215-6 Heart Rate 1: 87 bpm Height: 5'6" SpO2: 97% Weight: 184 lbs 09/29/2016 Blood Pressure 1: 128/78 Code: 8480-6 BMI: 29.7 Code: 93306-7 Heart Rate 1: 78 bpm Height: 5'6" SpO2: 98% Weight: 184 lbs 07/26/2016 Blood Pressure 1: 138/72 Code: 8480-6 BMI: 30.0 Code: 34817-1 Heart Rate 1: 85 bpm Height: 5'6" SpO2: 97% Weight: 186 lbs 05/30/2016 Blood Pressure 1: 132/76 Code: 8480-6 BMI: 30.0 Code: 11413-0 Heart Rate 1: 80 bpm Height: 5'6" SpO2: 98% Waist Measure (cm): 99 cm Weight: 186 lbs 05/25/2016 Blood Pressure 1: 132/76 Code: 8480-6 BMI: 30.0 Code: 41560-4 Heart Rate 1: 80 bpm Height: 5'6" SpO2: 96% Weight: 186 lbs 02/25/2016 Blood Pressure 1: 110/64 Code: 8480-6 Heart Rate 1: 82 bpm Height: SpO2: 96% Weight: 01/25/2016 Blood Pressure 1: 118/70 Code: 8480-6 BMI: 30.0 Code: 94725-6 Heart Rate 1: 78 bpm Height: 5'6" SpO2: 97% Weight: 186 lbs 11/11/2015 Blood Pressure 1: 128/82 Code: 8480-6 BMI: 29.2 Code: 94110-9 Heart Rate 1: 86 bpm Height: 5'6" SpO2: 96% Temperature: 36.4 (C) / 97.6 (F) Weight: 181 lbs 10/12/2015 Blood Pressure 1: 118/70 Code: 8480-6 BMI: 29.2 Code: 92829-9 Heart Rate 1: 81 bpm Height: 5'6" SpO2: 95% Weight: 181 lbs 09/03/2015 Blood Pressure 1: 138/78 Code: 8480-6 BMI: 29.9 Code: 82886-3 Heart Rate 1: 88 bpm Height: 5'6" SpO2: 97% Weight: 185 lbs 05/19/2015 Blood Pressure 1: 146/78 Code: 8480-6 BMI: 30.0 Code: 99582-4 Heart Rate 1: 66 bpm Height: 5'6" SpO2: 97% Weight: 186 lbs 05/12/2015 Blood Pressure 1: 120/70 Code: 8480-6 BMI: 29.9 Code: 34644-1 Heart Rate 1: 89 bpm Height: 5'6" SpO2: 95% Weight: 185 lbs 01/13/2015 Blood Pressure 1: 140/90 Code: 8480-6 BMI: 30.3 Code: 63391-1 Heart Rate 1: 84 bpm Height: 5'6" SpO2: 95% Weight: 188 lbs 12/16/2014 Blood Pressure 1: 140/82 Code: 8480-6 BMI: 29.5 Code: 96118-0 Heart Rate 1: 86 bpm Height: 5'6" [...] in thoracic spine[ICD10: M54.6] Brianna Vega MD, [facility] CPT- 4: 03582 11/02/2016 ([id number]) 13082 EST. PATIENT, LEVEL IV Diagnosis: Essential (primary) hypertension[ICD10: I10] Diagnosis: Other vitamin B12 deficiency anemias[ICD10: D51.8] Diagnosis: Generalized abdominal pain[ICD10: R10.84] Yarely Vega MD, [facility] CPT-4: 87794 09/29/2016 ([id number]) 01988 EST. PATIENT, LEVEL IV Diagnosis: Essential (primary) hypertension[ICD10: I10] Yarely Vega MD, [facility] CPT-4: 56310 07/26/2016 ([id number]) 17312 EST. PATIENT, LEVEL IV Diagnosis: Benign lipomatous neoplasm of skin and subcutaneous tissue of right leg[ICD10: D17.23] Diagnosis: Pain in right ankle and joints of right foot[ICD10: M25.571] Diagnosis: Encounter for immunization[ICD10: Z23] Diagnosis: Vitamin B12 deficiency anemia, unspecified[ICD10: D51.9] [facility] CPT-4: 35897 05/25/2016 37604 EST. PATIENT, LEVEL III Diagnosis: Other chest pain[ICD10: R07.89] Diagnosis: Other vitamin B12 deficiency anemias[ICD10: D51.8] Brianna Vega MD, [facility] CPT-4: 36514 02/25/2016 ([id number]) 12866 EST. 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 PATIENT, LEVEL III Diagnosis: Other vitamin B12 deficiency anemias[ICD10: D51.8] Diagnosis: Acute nasopharyngitis [common cold][ICD10: J00] Diagnosis: Other allergic rhinitis[ICD10: J30.89] Brianna Vega MD, [facility] CPT- 4: 08951 11/11/2015 ([id number]) 17068 EST. PATIENT, LEVEL IV Diagnosis: Essential tremor[ICD10: G25.0] Diagnosis: Chronic fatigue, unspecified[ICD10: R53.82] Diagnosis: Other hypersomnia[ICD10: G47.19] Diagnosis: Essential (primary) hypertension[ICD10: I10] Yarely Vega MD [facility] CPT-4: 97686 10/12/2015 ([id number]) 55596 EST. PATIENT, LEVEL IV Diagnosis: Essential (primary) hypertension[ICD10: I10] Diagnosis: Chronic atrial fibrillation[ICD10: I48.2] Diagnosis: Abnormal levels of other serum enzymes[ICD10: R74.8] Diagnosis: Type 2 diabetes mellitus without complications[ICD10: E11.9] Diagnosis: Vitamin B12 deficiency anemia, unspecified[ICD10: D51.9] Yarely Vega MD, [facility] CPT-4: 71969 09/03/2015 ([id number]) 64182 EST. PATIENT, LEVEL III Diagnosis: Nausea[ICD10: R11.0] Diagnosis: Essential tremor[ICD10: G25.0] Diagnosis: Actinic keratosis[ICD10: L57.0] Yarely Vega MD [facility] CPT-4: 09831 05/19/2015 ([id number]) 85737 EST. PATIENT, LEVEL IV Diagnosis: Vitamin B12 deficiency anemia, unspecified[ICD10: D51.9] Diagnosis: Chronic atrial fibrillation[ICD10: I48.2] Diagnosis: Headache[ICD10: R51] Diagnosis: Chronic fatigue, unspecified[ICD10: R53.82] Diagnosis: Cervicalgia[ICD10: M54.2] [facility] CPT-4: 36748 05/12/2015 ([id number]) 16551 EST. PATIENT, LEVEL IV Diagnosis: ESSENTIAL HYPERTENSION[ICD9: 401.9] Diagnosis: Afib[ICD9: 427.31] Diagnosis: Anxiety[ICD9: 300.00] Diagnosis: Insomnia[ICD9: 780.52] Yarely Vega MD, [facility] CPT-4: 07857 01/13/2015 ([id number]) OFFICE VISIT, NEW - LEVEL 4 Diagnosis: Hypothyroidism[ICD9: 244.9] Diagnosis: DIABETES TYPE II[ICD9: 250.00] Diagnosis: ESSENTIAL HYPERTENSION[ICD9: 401.9] Diagnosis: Afib[ICD9: 427.31] Diagnosis: Anxiety[ICD9: 300.00] Diagnosis: B12 deficiency[ICD9: 266.2] [facility] CPT-4: 82097 12/16/2014 Plan of Care Planned Activity Notes Codes Status Date Appointment: Injection 11/24/2016 Patient Education: Patient Medication [...] not improve. 11/02/2016 Appointment: Brianna Otoole WPtel: [address] [place], [place] [address] (15 min) Moderate 11/02/2016 Patient Education: Patient [...] carafate 09/29/2016 Appointment: Yarely Vega WPtel: [phone] [facility] [place] (15 min) Moderate 09/29/2016 Patient Education: Patient Medication Summary Completed 09/29/2016 Appointment: Yarely Vega WPtel: [phone] [facility] [place] (15 min) Moderate 09/27/2016 Appointment: [phone] [facility] [place] ([place] min) Moderate 09/20/2016 Appointment: Yarely Vega WPtel: [phone] [facility] [place] [place] (15 min) Moderate 09/20/2016 Patient Education: Patient Medication Summary Completed 09/06/2016 Appointment: Yarely Vega WPtel[facility] [phone] [facility] [place] [place] (15 min) Moderate 08/30/2016 Appointment: Injection [...] for acute concerns. 07/26/2016 Appointment: GaryMeggany WPtel: [phone] [facility] [place] (15 min) Moderate 07/26/2016 Patient Education: Patient [...] care surrogate. 05/30/2016 Appointment: Brianna Otoole [facility]Ptel[facility] [phone] [facility] [facility] - Annual Wellness Visit 05/30/2016 Patient [...] at bedtime 05/25/2016 Appointment: Yarely Vega WPtel[facility] [phone] [facility] [place] (15 min) Moderate 05/25/2016 Patient Education: Patient Medication Summary Completed 05/25/2016 Patient Education: Obesity Completed 05/25/2016 Care Plan: Referral Order SNOMED-CT : [id number] Pending 05/25/2016 Appointment: Injection 05/10/2016 Patient Education: Patient Medication Summary Completed 05/10/2016 Appointment: Injection 04/26/2016 Patient Education: Patient Medication Summary Completed 04/26/2016 Appointment: Injection 04/11/2016 Patient Education: Patient Medication Summary Completed 04/11/2016 Appointment: Injection 03/31/2016 Patient Education: Patient Medication Summary Completed 03/31/2016 Patient Education: Patient Medication Summary Completed 03/22/2016 [facility] Plan[facility] Pending 03/22/2016 Appointment: Injection 03/15/2016 Patient Education: [...] concerns. 02/25/2016 Appointment: Brianna Otoole WPtel: [phone] [facility] [place] [facility] (15 min) Moderate 02/25/2016 Patient Education: Patient [...] the patients recent sleep study - recommended [place] home patient eval of pt - nocturnal [...] the patients recent sleep study - recommended [place] home patient eval of pt - nocturnal [...] case with Faiza's daughter who had left [facility]. She is interested in looking at assisted living facilities for her mom as Faiza's family is for assisted living placement sooner rather than later. 10/12/2015 Appointment: Yarely Vega WPtel: [facility] [place] (15 min) Moderate 10/12/2015 Patient Education: Patient [...] Summary Completed 08/17/2015 Appointment: Yarely Vega WPtel: [phone] [facility] (15 min) Moderate 08/11/2015 Appointment: Injection 08/06/2015 [...] x 2 05/19/2015 Appointment: Yarely Vega WPtel: [phone] [facility] [place] [place] (30 min) Complex 05/19/2015 Patient Education: [...] alprazolam. 01/13/2015 Appointment: Yarely Vega WPtel: [phone] [facility] [place] (15 min) Moderate 01/13/2015 Patient Education: Patient [...] medications. 12/16/2014 Appointment: Janet Fam WPtel: [phone] [facility] [place] ([place]) New Patient 12/16/2014 Patient Education: [...] symptoms return, or with any concerns. . b12 injection . Hypertension - well [...] case with Faiza's daughter who had left [facility]. She is interested in looking at assisted [...] her DOPA paperwork for health care surrogate. decrease topamax to one pill nightly . [...] the patients recent sleep study - recommended [place] home patient eval of pt - nocturnal oxygen study - will order - if positive oxygen concentrator with humidification. change priolosec to bedtime to see if [...] - cryotherapy of skin lesions x 2 melatonin can take 3mg to 10mg at [...] the patients recent sleep study - recommended [place] home patient eval of pt - nocturnal oxygen study - will order - if positive oxygen concentrator with humidification. I suspect that she has the nocturnal hypoxemia due to her chronic atrial fibrillation and history of coronary artery disease with chronic systolic heart failure. womens probiotic - take one pill daily. [...] spray in the nasal steroid allergy spray. increase norvasc from 5mg daily to 10mg [...]
--- OUTSIDE RECORDS SUMMARY | 2018-12-05 16:19 | XMS REPORT | CCD ---
Author Author [facility] Organization [facility] Address [address] [place] [address] Phone Care Team Providers Care Gi Technician Name Role Phone PP Unavailable CCM Unavailable Summary Purpose Interface Exchange Insurance Providers Payer name Policy type / Coverage type Covered green party ID Effective Begin Date Effective End Date WPS Medicare Part B Medicare Part B [id number] Unknown Unknown Principal Life Insurance Medicare Part B [id number] Unknown Unknown Family history Brother Diagnosis Age At Onset Heart Attack Unknown Mother Diagnosis Age At Onset Hypertension Unknown kidney disease Unknown Stroke Unknown Father Diagnosis Age At Onset Arthritis Unknown Social History Social History Element Codes Description Effective Dates Marital status Unknown Single 12/16/2014 Employment Unknown Retired 12/16/[address]: 2444289 Former smoker 12/16/[address]: 653271096 Never drinks alcohol 12/16/2014 Allergies, Adverse Reactions, [...] hydrocodone 5 mg-acetaminophen 325 mg tablet RxNorm: 299586 1-2 Tablet(s) PO Q6 as needed for pain 12/08/2016 12/12/2016 Active Topamax 25 mg tablet RxNorm: 673161 TAKE 1 TABLET BY MOUTH EVERY DAY AT BEDTIME 12/06/2016 04/04/2017 Active Generic For:TOPAMAX 25MG 12/06/2016 9:15:13 AM Lac-Hydrin Five 5 % lotion RxNorm: 799651 1 Gram(s) TOP daily 12/02/2016 01/30/2017 Active cyanocobalamin (vit B-12) 1,000 mcg/mL injection solution RxNorm: 095463 Milliliter(s) Inj 11/24/2016 11/24/2016 Inactive Ceftin 500 mg tablet RxNorm: 520830 1 Tablet(s) PO BID 11/11/2016 11/17/2016 Inactive Cipro 500 mg tablet RxNorm: 907494 1 Tablet(s) PO BID 11/11/2016 11/10/2016 Inactive Cipro 500 mg tablet RxNorm: 624573 1 Tablet(s) PO BID 11/11/2016 11/11/2016 Inactive cyanocobalamin (vit B-12) 1,000 mcg/mL injection solution RxNorm: 268512 1 Milliliter(s) Inj 11/07/2016 11/07/2016 Inactive hydrocodone 5 mg-acetaminophen 325 mg tablet RxNorm: 333175 1-2 Tablet(s) PO Q6 as needed for pain 11/02/2016 11/06/2016 Inactive levothyroxine 125 mcg tablet RxNorm: 619197 Tablet(s) 1 Tablet(s) PO daily 10/24/2016 04/21/2017 Active liothyronine 5 mcg tablet RxNorm: 533769 1 Tablet(s) PO BID 10/24/2016 04/21/2017 Active cyanocobalamin (vit B-12) 1,000 mcg/mL injection solution RxNorm: 794760 Milliliter(s) Inj 10/24/2016 10/24/2016 Inactive hydrocodone 5 mg-acetaminophen 325 mg tablet RxNorm: 795961 1-2 Tablet(s) PO Q6 as needed for pain 10/17/2016 10/21/2016 Inactive Keflex 500 mg capsule RxNorm: 441217 1 Capsule(s) PO TID 10/07/2016 10/06/2016 Inactive Keflex 500 mg capsule RxNorm: 054347 1 Capsule(s) PO TID 10/07/2016 10/16/2016 Inactive Please deliver to patient cyanocobalamin (vit B-12) 1,000 mcg/mL injection solution RxNorm: 559672 1 Milliliter(s) Inj 09/29/2016 09/29/2016 Inactive alprazolam 0.25 mg tablet RxNorm: 877370 1 Tablet(s) PO BID 09/20/2016 03/18/2017 Active Zoloft 50 mg tablet RxNorm: 432598 Tablet(s) TAKE 1 TABLET BY MOUTH DAILY 09/14/2016 03/12/2017 Active Generic For:ZOLOFT 50MG Cozaar 100 mg tablet RxNorm: 596963 1 Tablet(s) PO daily 09/14/2016 No Stop Date Active metoprolol tartrate 50 mg tablet RxNorm: 516282 1/2 Tablet(s) PO BID 09/14/2016 12/12/2016 Active liothyronine 5 mcg tablet RxNorm: 430123 1 Tablet(s) PO BID 09/14/2016 10/23/2016 Inactive Calmoseptine 0.44 %-20.6 % topical ointment RxNorm: 865289 1 Application TOP BID and as needed to sore on buttocks 09/07/2016 No Stop Date Active cyanocobalamin (vit B-12) 1,000 mcg/mL injection solution RxNorm: 104688 Milliliter(s) Inj 08/29/2016 08/29/2016 Inactive hydrocodone 5 mg-acetaminophen 325 mg tablet RxNorm: 554213 1-2 Tablet(s) PO Q6 as needed for pain 08/29/2016 10/16/2016 Inactive levothyroxine 125 mcg tablet RxNorm: 389804 1 Tablet(s) PO daily 08/25/2016 10/23/2016 Inactive Topamax 25 mg tablet RxNorm: 439165 TAKE 1 TABLET BY MOUTH EVERY DAY AT BEDTIME 08/17/2016 12/05/2016 Inactive Generic For:TOPAMAX 25MG 08/17/2016 2:14:37 PM hydrocodone 5 mg-acetaminophen 325 mg tablet RxNorm: 212437 1-2 Tablet(s) PO Q6 as needed for pain 08/11/2016 08/28/2016 Inactive hydrocodone 5 mg-acetaminophen 325 mg tablet RxNorm: 390003 1 -2 Tablet(s) PO Q6 as needed for pain 08/11/2016 08/18/2016 Inactive hydrocodone 5 mg-acetaminophen 325 mg tablet RxNorm: 040369 1 Tablet(s) PO Q6 as needed for pain 08/05/2016 08/10/2016 Inactive cyanocobalamin (vit B-12) 1,000 mcg/mL injection solution RxNorm: 341284 Milliliter(s) Inj 08/04/2016 08/04/2016 Inactive Norvasc 10 mg tablet RxNorm: 121366 1 Tablet(s) PO daily 07/26/2016 07/20/2017 Active levothyroxine 125 mcg tablet RxNorm: 501064 1 Tablet(s) PO daily 07/21/2016 10/18/2016 Inactive alprazolam 0.25 mg tablet RxNorm: 690671 1 Tablet(s) PO QHS 07/21/2016 09/19/2016 Inactive Norvasc 5 mg tablet RxNorm: 950895 1 Tablet(s) PO daily 07/21/2016 07/25/2016 Inactive cyanocobalamin (vit B-12) 1,000 mcg/mL injection solution RxNorm: 081439 Milliliter(s) Inj 07/21/2016 07/21/2016 Inactive Zoloft 50 mg tablet RxNorm: 997861 Tablet(s) TAKE 1 TABLET BY MOUTH DAILY 07/21/2016 09/13/2016 Inactive Generic For:ZOLOFT 50MG cyanocobalamin (vit B-12) 1,000 mcg/mL injection solution RxNorm: 870074 1 Milliliter(s) Inj 07/05/2016 07/05/2016 Inactive cyanocobalamin (vit B-12) 1,000 mcg/mL injection solution RxNorm: 005222 1 Milliliter(s) Inj 06/22/2016 06/22/2016 Inactive cyanocobalamin (vit B-12) 1,000 mcg/mL injection solution RxNorm: 158153 Milliliter(s) Inj 06/09/2016 06/09/2016 Inactive Aricept 10 mg tablet RxNorm: 684356 1 Tablet(s) PO daily 05/27/2016 05/21/2017 Active Mobic 15 mg tablet RxNorm: 684661 1 Tablet(s) PO daily 05/27/2016 05/21/2017 Active levothyroxine 125 mcg tablet RxNorm: 821442 1 Tablet(s) PO daily 05/25/2016 07/20/2016 Inactive cyanocobalamin (vit B-12) 1,000 mcg/mL injection solution RxNorm: 118719 1 Milliliter(s) Inj 05/25/2016 05/25/2016 Inactive doxycycline hyclate 100 mg capsule RxNorm: 8894353 1 Capsule(s) PO BID 05/16/2016 05/15/2016 Inactive doxycycline hyclate 100 mg capsule RxNorm: 9456661 1 Capsule(s) PO BID 05/16/2016 05/22/2016 Inactive cyanocobalamin (vit B-12) 1,000 mcg/mL injection solution RxNorm: 566408 Milliliter(s) Inj 05/10/2016 05/10/2016 Inactive cyanocobalamin (vit B-12) 1,000 mcg/mL injection solution RxNorm: 946738 Milliliter(s) Inj 04/26/2016 04/26/2016 Inactive Topamax 25 mg tablet RxNorm: 754252 1 Tablet(s) PO QPM 04/22/2016 08/16/2016 Inactive cyanocobalamin (vit B-12) 1,000 mcg/mL injection solution RxNorm: 484153 Milliliter(s) 1 Milliliter(s) Inj [id number] 04/11/2016 12/31/2017 Active liothyronine 5 mcg tablet RxNorm: 380712 1 Tablet(s) PO BID 04/11/2016 09/13/2016 Inactive cyanocobalamin (vit B-12) 1,000 mcg/mL injection solution RxNorm: 883440 Milliliter(s) Inj 04/11/2016 04/11/2016 Inactive cyanocobalamin (vit B-12) 1,000 mcg/mL injection solution RxNorm: 946749 Milliliter(s) Inj 03/31/2016 03/31/2016 Inactive cyanocobalamin (vit B-12) 1,000 mcg/mL injection solution RxNorm: 016081 1 Milliliter(s) Inj 03/15/2016 03/15/2016 Inactive levothyroxine 125 mcg tablet RxNorm: 152921 1 Tablet(s) PO daily 2016 03/03/2016 Inactive levothyroxine 125 mcg tablet RxNorm: 286911 1 Tablet(s) PO daily 2016 05/24/2016 Inactive cyanocobalamin (vit B-12) 1,000 mcg/mL injection solution RxNorm: 047876 Milliliter(s) Inj 02/25/2016 02/25/2016 Inactive cyanocobalamin (vit B-12) 1,000 mcg/mL injection solution RxNorm: 736113 1 Milliliter(s) Inj 02/02/2016 02/02/2016 Inactive sucralfate 1 gram tablet RxNorm: 127542 1 Tablet(s) PO QHS 01/25/2016 No Stop Date Active amiodarone 200 mg tablet RxNorm: 355666 1/2 Tablet(s) PO BID 01/25/2016 No Stop Date Active cyanocobalamin (vit B-12) 1,000 mcg/mL injection solution RxNorm: 172854 Milliliter(s) Inj 01/18/2016 01/18/2016 Inactive cyanocobalamin (vit B-12) 1,000 mcg/mL injection solution RxNorm: 797469 Milliliter(s) Inj 12/29/2015 12/29/2015 Inactive Topamax 25 mg tablet RxNorm: 381937 1 Tablet(s) PO QPM 12/08/2015 04/05/2016 Inactive cyanocobalamin (vit B-12) 1,000 mcg/mL injection solution RxNorm: 125792 Milliliter(s) Inj 12/08/2015 12/08/2015 Inactive Bactrim DS 800 mg-160 mg tablet RxNorm: 524914 1 Tablet(s) PO BID 11/23/2015 11/22/2015 Inactive cyanocobalamin (vit B-12) 1,000 mcg/mL injection solution RxNorm: 944075 Milliliter(s) Inj 11/23/2015 11/23/2015 Inactive Bactrim DS 800 mg-160 mg tablet RxNorm: 617892 1 Tablet(s) PO BID 11/23/2015 11/29/2015 Inactive cyanocobalamin (vit B-12) 1,000 mcg/mL injection solution RxNorm: 039164 Milliliter(s) Inj 11/11/2015 11/11/2015 Inactive amoxicillin 500 mg capsule RxNorm: 767249 1 Capsule(s) PO TID 11/10/2015 11/19/2015 Inactive Zithromax Z-Henrique 250 mg tablet RxNorm: 562485 1 Tablet(s) PO UD 11/10/2015 01/24/2016 Inactive zpack x 1 amoxicillin 500 mg capsule RxNorm: 566768 1 Capsule(s) PO TID 11/10/2015 11/09/2015 Inactive cyanocobalamin (vit B-12) 1,000 mcg/mL injection solution RxNorm: 641367 1 Milliliter(s) Inj 10/29/2015 10/29/2015 Inactive [place] 3 capsule RxNorm: 1 Capsule(s) PO QAM , 2 Capsules at noon, 1 Capsule QHS 10/13/2015 No Stop Date Active potassium chloride ER 20 mEq tablet,extended release RxNorm: 971982 2 Tablet(s) PO daily at noon 10/13/2015 No Stop Date Active alprazolam 0.25 mg tablet RxNorm: 323745 1 Tablet(s) PO QHS 10/13/2015 07/20/2016 Inactive amiodarone 200 mg tablet RxNorm: 511550 1 Tablet(s) PO BID 10/13/2015 01/24/2016 Inactive cyanocobalamin (vit B-12) 1,000 mcg/mL injection solution RxNorm: 727107 1 Milliliter(s) Inj 10/12/2015 10/12/2015 Inactive Zofran 4 mg tablet RxNorm: 027244 1 Tablet(s) PO daily as needed 10/07/2015 05/24/2016 Inactive Zoloft 50 mg tablet RxNorm: 590763 TAKE 1 TABLET BY MOUTH DAILY 10/05/2015 05/01/2016 Inactive Generic For:ZOLOFT 50MG cyanocobalamin (vit B-12) 1,000 mcg/mL injection solution RxNorm: 566148 1 Milliliter(s) Inj 09/29/2015 09/29/2015 Inactive buspirone 15 mg tablet RxNorm: 941920 1 Tablet(s) PO BID 09/17/2015 09/10/2016 Inactive cyanocobalamin (vit B-12) 1,000 mcg/mL injection solution RxNorm: 607346 1 Milliliter(s) Inj 09/17/2015 09/17/2015 Inactive Norvasc 5 mg tablet RxNorm: 806010 1 Tablet(s) PO daily 09/17/2015 07/20/2016 Inactive liothyronine 5 mcg tablet RxNorm: 121173 1 Tablet(s) PO BID 09/17/2015 03/14/2016 Inactive Zoloft 50 mg tablet RxNorm: 243652 1 Tablet(s) PO daily 09/17/2015 10/04/2015 Inactive buspirone 15 mg tablet RxNorm: 642011 1 Tablet(s) PO BID 09/14/2015 09/16/2015 Inactive Topamax 25 mg tablet RxNorm: 426508 1 Tablet(s) PO QPM 09/03/2015 12/07/2015 Inactive cyanocobalamin (vit B-12) 1,000 mcg/mL injection solution RxNorm: 642511 1 Milliliter(s) Inj 09/03/2015 09/03/2015 Inactive cyanocobalamin (vit B-12) 1,000 mcg/mL injection solution RxNorm: 652013 Milliliter(s) Inj 08/17/2015 08/17/2015 Inactive cyanocobalamin (vit B-12) 1,000 mcg/mL injection solution RxNorm: 739640 Milliliter(s) Inj 08/06/2015 08/06/2015 Inactive levothyroxine 150 mcg tablet RxNorm: 572204 1 Tablet(s) PO daily 07/22/2015 03/03/2016 Inactive Aricept 10 mg tablet RxNorm: 066483 1 Tablet(s) PO daily 07/22/2015 05/26/2016 Inactive Mobic 15 mg tablet RxNorm: 065735 1 Tablet(s) PO daily 07/22/2015 05/26/2016 Inactive cyanocobalamin (vit B-12) 1,000 mcg/mL injection solution RxNorm: 853151 Milliliter(s) Inj 07/22/2015 07/22/2015 Inactive liothyronine 5 mcg tablet RxNorm: 349873 1 Tablet(s) PO BID 07/22/2015 09/16/2015 Inactive cyanocobalamin (vit B-12) 1,000 mcg/mL injection solution RxNorm: 366396 Milliliter(s) Inj 07/08/2015 07/08/2015 Inactive cyanocobalamin (vit B-12) 1,000 mcg/mL injection solution RxNorm: 312275 Milliliter(s) Inj 06/23/2015 06/23/2015 Inactive cyanocobalamin (vit B-12) 1,000 mcg/mL injection solution RxNorm: 322930 1 Milliliter(s) Inj 06/08/2015 06/08/2015 Inactive cyanocobalamin (vit B-12) 1,000 mcg/mL injection solution RxNorm: 057680 Milliliter(s) Inj 05/27/2015 05/27/2015 Inactive Aricept 10 mg tablet RxNorm: 821825 1 Tablet(s) PO daily 05/20/2015 07/21/2015 Inactive Zofran 4 mg tablet RxNorm: 655117 1 Tablet(s) PO daily as needed 05/20/2015 06/18/2015 Inactive alprazolam 0.25 mg tablet RxNorm: 105188 1 Tablet(s) PO BID 05/20/2015 10/12/2015 Inactive Mobic 15 mg tablet RxNorm: 977968 1 Tablet(s) PO daily 05/20/2015 07/21/2015 Inactive tramadol ER 100 mg tablet,extended release 24 hr RxNorm: 604080 1 Tablet(s) PO Q6 as needed 05/13/2015 No Stop Date Active cyanocobalamin (vit B-12) 1,000 mcg/mL injection solution RxNorm: 049428 1 Milliliter(s) Inj 05/12/2015 05/12/2015 Inactive Topamax 25 mg tablet RxNorm: 588593 1 Tablet(s) PO BID (start at one pill at bedtime x 1week then twice daily thereafter) 05/12/2015 09/02/2015 Inactive cyanocobalamin (vit B-12) 1,000 mcg/mL injection kit RxNorm: 703334 kit Inj 04/30/2015 04/30/2015 Inactive cyanocobalamin (vit B-12) 1,000 mcg/mL injection solution RxNorm: 463496 Milliliter(s) Inj 04/16/2015 04/16/2015 Inactive levothyroxine 150 mcg tablet RxNorm: 133391 1 Tablet(s) PO daily 04/08/2015 07/21/2015 Inactive cyanocobalamin (vit B-12) 1,000 mcg/mL injection solution RxNorm: 387641 Milliliter(s) 1 Milliliter(s) Inj [id number] 04/08/2015 04/10/2016 Inactive Cytomel 5 mcg tablet RxNorm: 937300 1 Tablet(s) PO BID 04/08/2015 10/12/2015 Inactive Cytomel 5 mcg tablet RxNorm: 393134 1 Tablet(s) PO BID 04/07/2015 04/07/2015 Inactive Cytomel 5 mcg tablet RxNorm: 484292 1 Tablet(s) PO BID 04/07/2015 04/06/2015 Inactive cyanocobalamin (vit B-12) 1,000 mcg/mL injection solution RxNorm: 286392 Milliliter(s) Inj 04/02/2015 04/02/2015 Inactive cyanocobalamin (vit B-12) 1,000 mcg/mL injection solution RxNorm: 790896 Milliliter(s) Inj 03/18/2015 03/18/2015 Inactive cyanocobalamin (vit B-12) 1,000 mcg/mL injection solution RxNorm: 296620 Milliliter(s) 1 Milliliter(s) Inj [id number] 03/18/2015 04/07/2015 Inactive cyanocobalamin (vit B-12) 1,000 mcg/mL injection solution RxNorm: 044890 1 Milliliter(s) Inj [id number] 03/16/2015 03/17/2015 Inactive cyanocobalamin (vit B-12) 1,000 mcg/mL injection solution RxNorm: 960990 Milliliter(s) Inj 03/03/2015 03/03/2015 Inactive cyanocobalamin (vit B-12) 1,000 mcg/mL injection solution RxNorm: 010286 Milliliter(s) Inj 02/18/2015 02/18/2015 Inactive cyanocobalamin (vit B-12) 1,000 mcg/mL injection solution RxNorm: 418800 Milliliter(s) Inj 02/04/2015 02/04/2015 Inactive cyanocobalamin (vit B-12) 1,000 mcg/mL injection solution RxNorm: 114269 Milliliter(s) Inj 01/22/2015 01/22/2015 Inactive Lac-Hydrin Five 5 % lotion RxNorm: 272144 1 TOP daily 01/13/2015 03/13/2015 Inactive Lac-Hydrin Five 5 % lotion RxNorm: 818678 1 TOP daily 01/13/2015 01/12/2015 Inactive cyanocobalamin (vit B-12) 1,000 mcg/mL injection solution RxNorm: 880872 Milliliter(s) Inj 01/08/2015 01/08/2015 Inactive cyanocobalamin (vit B-12) 1,000 mcg/mL injection solution RxNorm: 166674 Milliliter(s) Inj 12/25/2014 12/25/2014 Inactive levothyroxine 150 mcg tablet RxNorm: 231305 1 Tablet(s) PO daily 12/24/2014 04/07/2015 Inactive tramadol 50 mg tablet RxNorm: 577744 1-2 Tablet(s) PO Q6 as needed 12/17/2014 05/12/2015 Inactive alprazolam 0.25 mg tablet RxNorm: 181894 1 Tablet(s) PO BID 12/17/2014 04/15/2015 Inactive Pradaxa 150 mg capsule RxNorm: 2939515 1 Capsule(s) PO BID 12/16/2014 No Stop Date Active metoprolol tartrate 50 mg tablet RxNorm: 949170 1/2 Tablet(s) PO BID 12/16/2014 09/13/2016 Inactive buspirone 15 mg tablet RxNorm: 128542 1 Tablet(s) PO BID 12/16/2014 09/13/2015 Inactive cyanocobalamin (vit B-12) 1,000 mcg/mL injection solution RxNorm: 176370 1 Milliliter(s) Inj [id number] 12/16/2014 03/15/2015 Inactive cyanocobalamin (vit B-12) 1,000 mcg/mL injection solution RxNorm: 345656 1 Milliliter(s) Inj [id number] 12/16/2014 12/15/2014 Inactive sucralfate 1 gram tablet RxNorm: 544437 Tablet(s) PO QID 12/16/2014 12/10/2015 Inactive cyanocobalamin (vit B-12) 1,000 mcg/mL injection solution RxNorm: 090524 Milliliter(s) Inj 12/10/2014 12/10/2014 Inactive cyanocobalamin (vit B-12) 1,000 mcg/mL injection solution RxNorm: 804115 Milliliter(s) Inj 11/26/2014 11/26/2014 Inactive Zoloft 50 mg tablet RxNorm: 280928 1 Tablet(s) PO daily 11/24/2014 06/21/2015 Inactive Zoloft 50 mg tablet RxNorm: 303396 1 Tablet(s) PO daily 11/24/2014 11/23/2014 Inactive cyanocobalamin (vit B-12) 1,000 mcg/mL injection kit RxNorm: 597296 Milliliter(s) Inj 11/12/2014 11/12/2014 Inactive cyanocobalamin (vit B-12) 1,000 mcg/mL injection solution RxNorm: 658601 Milliliter(s) Inj 10/28/2014 10/28/2014 Inactive [SAVINGS FOR NON-COVERED DRUGS -- BIN:[id number], PCN: [id number], Group: [id number], ID# [id number], Questions: . THIS IS NOT INSURANCE.] promethazine oral RxNorm: 8745 oral No Start Date Active digoxin 125 mcg tablet RxNorm: 282177 Tablet(s) PO every other day No Start Date Active furosemide 40 mg tablet RxNorm: 128538 1 Tablet(s) PO daily No Start Date Active Vitamin D3 5,000 unit tablet RxNorm: 891783 1 Tablet(s) PO daily No Start Date Active erythromycin 250 mg capsule,delayed release RxNorm: 061289 1 Capsule(s) PO AC No Start Date Active Protonix 40 mg tablet,delayed release RxNorm: 426870 1 Tablet(s) PO BID No Start Date Active Cozaar 100 mg tablet RxNorm: 966215 1 Tablet(s) PO daily No Start Date 09/13/2016 Inactive sucralfate 1 gram tablet RxNorm: 590474 Tablet(s) PO QID No Start Date 12/15/2014 Inactive amiodarone 200 mg tablet RxNorm: 736568 2 Tablet(s) PO daily No Start Date 10/13/2015 Inactive buspirone 15 mg tablet RxNorm: 071530 1 Tablet(s) PO daily No Start Date 12/15/2014 Inactive potassium chloride ER 20 mEq tablet,extended release RxNorm: 728616 1 Tablet(s) PO daily No Start Date 10/12/2015 Inactive Prilosec 40 mg capsule,delayed release RxNorm: 548131 1 Capsule(s) PO daily No Start Date 09/02/2015 Inactive [place] 3 capsule RxNorm: Capsule(s) PO No Start Date 10/12/2015 Inactive alprazolam 0.25 mg tablet RxNorm: 685920 Tablet(s) PO QHS No Start Date 12/16/2014 Inactive levothyroxine 125 mcg tablet RxNorm: 605910 1 Tablet(s) PO daily No Start Date 12/23/2014 Inactive liothyronine 5 mcg tablet RxNorm: 987945 1 Tablet(s) PO BID No Start Date 07/21/2015 Inactive Mobic 15 mg tablet RxNorm: 200200 Tablet(s) PO daily No Start Date 05/19/2015 Inactive Norvasc 5 mg tablet RxNorm: 570375 1 Tablet(s) PO daily No Start Date 09/16/2015 Inactive Zofran 4 mg tablet RxNorm: 318230 1 Tablet(s) PO daily as needed No Start Date 05/19/2015 Inactive tramadol 50 mg tablet RxNorm: 653998 1 Tablet(s) PO daily as needed No Start Date 12/16/2014 Inactive amiodarone 200 mg tablet RxNorm: 340981 1 Tablet(s) PO daily No Start Date 10/12/2015 Inactive meclizine 25 mg tablet RxNorm: 403802 Tablet(s) PO as needed No Start Date 05/24/2016 Inactive Pradaxa 150 mg capsule RxNorm: 3952700 1 Capsule(s) PO daily No Start Date 12/15/2014 Inactive metoprolol tartrate 50 mg tablet RxNorm: 778019 1/2 Tablet(s) PO No Start Date 12/15/2014 Inactive Aricept 10 mg tablet RxNorm: 830451 Tablet(s) PO daily No Start Date 05/19/2015 Inactive Calmoseptine 0.44 %-20.6 % topical ointment RxNorm: 702934 1 Application TOP BID and as needed to sore on buttocks No Start Date 09/06/2016 Inactive Zithromax Z-Henrique 250 mg tablet RxNorm: 643652 1 Tablet(s) PO UD No Start Date 11/09/2015 Inactive zpack x 1 Medication Administered Medication Codes Instructions Start Date Status cyanocobalamin (vit B-12) 1,000 mcg/mL injection solution RxNorm: 668712 Milliliter 11/24/2016 No longer Active cyanocobalamin (vit B-12) 1,000 mcg/mL injection solution RxNorm: 461409 1Milliliter 11/07/2016 No longer Active cyanocobalamin (vit B-12) 1,000 mcg/mL injection solution RxNorm: 468356 Milliliter 10/24/2016 No longer Active cyanocobalamin (vit B-12) 1,000 mcg/mL injection solution RxNorm: 463083 1Milliliter 09/29/2016 No longer Active cyanocobalamin (vit B-12) 1,000 mcg/mL injection solution RxNorm: 790193 Milliliter 08/29/2016 No longer Active cyanocobalamin (vit B-12) 1,000 mcg/mL injection solution RxNorm: 212503 Milliliter 08/04/2016 No longer Active cyanocobalamin (vit B-12) 1,000 mcg/mL injection solution RxNorm: 340286 Milliliter 07/21/2016 No longer Active cyanocobalamin (vit B-12) 1,000 mcg/mL injection solution RxNorm: 059909 1Milliliter 07/05/2016 No longer Active cyanocobalamin (vit B-12) 1,000 mcg/mL injection solution RxNorm: 179672 1Milliliter 06/22/2016 No longer Active cyanocobalamin (vit B-12) 1,000 mcg/mL injection solution RxNorm: 021409 Milliliter 06/09/2016 No longer Active cyanocobalamin (vit B-12) 1,000 mcg/mL injection solution RxNorm: 482511 1Milliliter 05/25/2016 No longer Active cyanocobalamin (vit B-12) 1,000 mcg/mL injection solution RxNorm: 676014 Milliliter 05/10/2016 No longer Active cyanocobalamin (vit B-12) 1,000 mcg/mL injection solution RxNorm: 743767 Milliliter 04/26/2016 No longer Active cyanocobalamin (vit B-12) 1,000 mcg/mL injection solution RxNorm: 360004 Milliliter 04/11/2016 No longer Active cyanocobalamin (vit B-12) 1,000 mcg/mL injection solution RxNorm: 585200 Milliliter 03/31/2016 No longer Active cyanocobalamin (vit B-12) 1,000 mcg/mL injection solution RxNorm: 711120 1Milliliter 03/15/2016 No longer Active cyanocobalamin (vit B-12) 1,000 mcg/mL injection solution RxNorm: 960351 Milliliter 02/25/2016 No longer Active cyanocobalamin (vit B-12) 1,000 mcg/mL injection solution RxNorm: 493670 1Milliliter 02/02/2016 No longer Active cyanocobalamin (vit B-12) 1,000 mcg/mL injection solution RxNorm: 858828 Milliliter 01/18/2016 No longer Active cyanocobalamin (vit B-12) 1,000 mcg/mL injection solution RxNorm: 778300 Milliliter 12/29/2015 No longer Active cyanocobalamin (vit B-12) 1,000 mcg/mL injection solution RxNorm: 050015 Milliliter 12/08/2015 No longer Active cyanocobalamin (vit B-12) 1,000 mcg/mL injection solution RxNorm: 925213 Milliliter 11/23/2015 No longer Active cyanocobalamin (vit B-12) 1,000 mcg/mL injection solution RxNorm: 311895 Milliliter 11/11/2015 No longer Active cyanocobalamin (vit B-12) 1,000 mcg/mL injection solution RxNorm: 460469 1Milliliter 10/29/2015 No longer Active cyanocobalamin (vit B-12) 1,000 mcg/mL injection solution RxNorm: 758795 1Milliliter 10/12/2015 No longer Active cyanocobalamin (vit B-12) 1,000 mcg/mL injection solution RxNorm: 839580 1Milliliter 09/29/2015 No longer Active cyanocobalamin (vit B-12) 1,000 mcg/mL injection solution RxNorm: 003212 1Milliliter 09/17/2015 No longer Active cyanocobalamin (vit B-12) 1,000 mcg/mL injection solution RxNorm: 512532 1Milliliter 09/03/2015 No longer Active cyanocobalamin (vit B-12) 1,000 mcg/mL injection solution RxNorm: 920070 Milliliter 08/17/2015 No longer Active cyanocobalamin (vit B-12) 1,000 mcg/mL injection solution RxNorm: 362256 Milliliter 08/06/2015 No longer Active cyanocobalamin (vit B-12) 1,000 mcg/mL injection solution RxNorm: 203589 Milliliter 07/22/2015 No longer Active cyanocobalamin (vit B-12) 1,000 mcg/mL injection solution RxNorm: 685464 Milliliter 07/08/2015 No longer Active cyanocobalamin (vit B-12) 1,000 mcg/mL injection solution RxNorm: 627877 Milliliter 06/23/2015 No longer Active cyanocobalamin (vit B-12) 1,000 mcg/mL injection solution RxNorm: 681048 1Milliliter 06/08/2015 No longer Active cyanocobalamin (vit B-12) 1,000 mcg/mL injection solution RxNorm: 980845 Milliliter 05/27/2015 No longer Active cyanocobalamin (vit B-12) 1,000 mcg/mL injection solution RxNorm: 029230 1Milliliter 05/12/2015 No longer Active cyanocobalamin (vit B-12) 1,000 mcg/mL injection kit RxNorm: 326816 kit 04/30/2015 No longer Active cyanocobalamin (vit B-12) 1,000 mcg/mL injection solution RxNorm: 376661 Milliliter 04/16/2015 No longer Active cyanocobalamin (vit B-12) 1,000 mcg/mL injection solution RxNorm: 873947 [facility] 04/02/2015 No longer Active cyanocobalamin (vit B-12) 1,000 mcg/mL injection solution RxNorm: 072946 [facility] 03/18/2015 No longer Active cyanocobalamin (vit B-12) 1,000 mcg/mL injection solution RxNorm: 587428 [facility] 03/03/2015 No longer Active cyanocobalamin (vit B-12) 1,000 mcg/mL injection solution RxNorm: 763855 [facility] 02/18/2015 No longer Active cyanocobalamin (vit B-12) 1,000 mcg/mL injection solution RxNorm: 700386 [facility] 02/04/2015 No longer Active cyanocobalamin (vit B-12) 1,000 mcg/mL injection solution RxNorm: 221559 [facility] 01/22/2015 No longer Active cyanocobalamin (vit B-12) 1,000 mcg/mL injection solution RxNorm: 143018 Milliliter 01/08/2015 No longer Active cyanocobalamin (vit B-12) 1,000 mcg/mL injection solution RxNorm: 091627 Milliliter 12/25/2014 No longer Active cyanocobalamin (vit B-12) 1,000 mcg/mL injection solution RxNorm: 669232 Milliliter 12/10/2014 No longer Active cyanocobalamin (vit B-12) 1,000 mcg/mL injection solution RxNorm: 730127 Milliliter 11/26/2014 No longer Active cyanocobalamin (vit B-12) 1,000 mcg/mL injection kit RxNorm: 023825 Milliliter 11/12/2014 No longer Active cyanocobalamin (vit B-12) 1,000 mcg/mL injection solution RxNorm: 274799 Milliliter 10/28/2014 No longer Active Immunizations Vaccine [...] Item Item Code Result Date Culture Urine [id number] URINE CULTURE SEE NOTES 11/10/2016 Culture Urine [id number] Continued Results 11/10/2016 Urine Culture Ucult Complete [...] Ord15 CALCIUM 9.3 mg/dL 09/29/2016 Free T4 Jjr008 FREE T4 0.99 ng/dL 09/07/2016 Cbc With [...] 30.0 pg 09/07/2016 Cbc With Differential Ord2 [place]% 9.8 % 09/07/2016 Cbc With Differential Ord2 [...] 1.75 K/ul 09/07/2016 Cbc With Differential Ord2 [place] ABS# 0.6 K/ul 09/07/2016 Cbc With Differential Ord2 [place] ABS# 0.1 K/ul 09/07/2016 Cbc With Differential Ord2 Baso ABS# 0.0 K/ul 09/07/2016 Tsh Ord6 hTSH II 1.41 uIU/mL 09/07/2016 Culture Urine [id number] URINE CULTURE SEE NOTES 06/27/2016 Lipid Ord30 CHOL 196 mg/dL 06/22/2016 Lipid Ord30 HDL 63.0 mg/dl 06/22/2016 Lipid Ord30 TRIG 154 mg/dL 06/22/2016 Lipid Ord30 LDL 102 mg/dL 06/22/2016 Lipid Ord30 C/HDL 3.1 Ratio 06/22/2016 Hepatic Ojl532 ALBUMIN 4.2 g/dL 06/22/2016 Hepatic Vkk739 TPRO 7.0 g/dL 06/22/2016 Hepatic Qnn588 GLOB 2.8 g/dL 06/22/2016 Hepatic Ugr965 A/G Ratio 1.5 Ratio 06/22/2016 Hepatic Wpg629 ALK PHOS 54 U/L 06/22/2016 Hepatic Hqf305 ALT(SGPT) 30 U/L 06/22/2016 Hepatic Zww967 AST(SGOT) 24 U/L 06/22/2016 Hepatic Ors835 BILI T 1.1 mg/dL 06/22/2016 Hepatic Opk996 BILI D 0.2 mg/dL 06/22/2016 Hepatic Uhj264 BILI I 0.9 mg/dL 06/22/2016 Comp Metabolic Iqs095 NA 139 mEq/L 06/14/2016 Comp Metabolic Tyd113 K 4.6 mEq/L 06/14/2016 Comp Metabolic Ecq141 CL 108 mEq/L 06/14/2016 Comp Metabolic Ono303 CO2 22.0 mEq/L 06/14/2016 Comp Metabolic Ffr151 ANION GAP 14 06/14/2016 Comp Metabolic Jpr078 GLUCOSE 114 mg/dL 06/14/2016 Comp Metabolic Eoj261 Creat 1.2 mg/dL 06/14/2016 Comp Metabolic Xqq116 eGFR 48 ml/min/1.73m2 06/14/2016 Comp Metabolic Usi254 BUN 24 mg/dL 06/14/2016 Comp Metabolic Ron947 B/C Ratio 20.9 Ratio 06/14/2016 Comp Metabolic Ngk616 CALCIUM 9.9 mg/dL 06/14/2016 Comp Metabolic Rqh115 ALK PHOS 47 U/L 06/14/2016 Comp Metabolic Dhl748 AST(SGOT) 28 U/L 06/14/2016 Comp Metabolic Gfr035 ALT(SGPT) 32 U/L 06/14/2016 Comp Metabolic Zwu442 BILI T 0.9 mg/dL 06/14/2016 Comp Metabolic Dns731 ALBUMIN 4.1 g/dL 06/14/2016 Comp Metabolic Uuq436 TPRO 6.9 g/dL 06/14/2016 Comp Metabolic Vol039 GLOB 2.8 g/dL 06/14/2016 Comp Metabolic Noj201 A/G Ratio 1.5 Ratio 06/14/2016 Comp Metabolic Aoa206 Osmo 282 mOsmo 06/14/2016 Tsh Ord6 hTSH II 1.26 uIU/mL 06/14/2016 Free T4 Jhd654 FREE T4 1.09 ng/dL 06/14/2016 Tsh Ord6 hTSH II 0.28 uIU/mL 02/02/2016 Digoxin Ord9 DIGOXIN 0.7 NG/ML 02/02/2016 Free T4 Ger711 FREE T4 1.23 ng/dL 02/02/2016 Hepatic Nab272 ALBUMIN 4.0 g/dL 02/02/2016 Hepatic Zkg528 TPRO 7.0 g/dL 02/02/2016 Hepatic Oxz368 GLOB 3.0 g/dL 02/02/2016 Hepatic Him875 A/G Ratio 1.3 Ratio 02/02/2016 Hepatic Upm422 ALK PHOS 57 U/L 02/02/2016 Hepatic Arm577 ALT(SGPT) 62 U/L 02/02/2016 Hepatic Ukq731 AST(SGOT) 54 U/L 02/02/2016 Hepatic Xsw377 BILI T 0.8 mg/dL 02/02/2016 Hepatic Bzs447 BILI D 0.2 mg/dL 02/02/2016 Hepatic Toc185 BILI I 0.6 mg/dL 02/02/2016 Urine Culture Ucult Preliminary No Growth Day 1 11/25/2015 Urine Culture Ucult Complete No Growth Day 2 11/25/2015 Hepatic Rww456 ALBUMIN 3.9 g/dL 11/11/2015 Hepatic Lgg984 TPRO 7.0 g/dL 11/11/2015 Hepatic Vqg617 GLOB 3.1 g/dL 11/11/2015 Hepatic Gva462 A/G Ratio 1.3 Ratio 11/11/2015 Hepatic Uos341 ALK PHOS 63 U/L 11/11/2015 Hepatic Lgd715 ALT(SGPT) 107 U/L 11/11/2015 Hepatic Ddn105 AST(SGOT) 101 U/L 11/11/2015 Hepatic Cja741 BILI T 0.6 mg/dL 11/11/2015 Hepatic Ohe985 BILI D 0.1 mg/dL 11/11/2015 Hepatic Fmh667 BILI I 0.5 mg/dL 11/11/2015 Comp Metabolic Ere785 NA 138 mEq/L 10/29/2015 Comp Metabolic Cyz487 K 5.0 mEq/L 10/29/2015 Comp Metabolic Anz829 CL 105 mEq/L 10/29/2015 Comp Metabolic Ycy096 CO2 23.0 mEq/L 10/29/2015 Comp Metabolic Toe246 ANION GAP 15 10/29/2015 Comp Metabolic Auf021 GLUCOSE 105 mg/dL 10/29/2015 Comp Metabolic Rub100 Creat 1.0 mg/dL 10/29/2015 Comp Metabolic Qlg383 eGFR 55 ml/min/1.73m2 10/29/2015 Comp Metabolic Ibb433 BUN 20 mg/dL 10/29/2015 Comp Metabolic Kmg208 B/C Ratio 19.4 Ratio 10/29/2015 Comp Metabolic Rye007 CALCIUM 8.8 mg/dL 10/29/2015 Comp Metabolic Rsl249 ALK PHOS 56 U/L 10/29/2015 Comp Metabolic Knq295 AST(SGOT) 66 U/L 10/29/2015 Comp Metabolic Ash612 ALT(SGPT) 78 U/L 10/29/2015 Comp Metabolic Muw158 BILI T 0.7 mg/dL 10/29/2015 Comp Metabolic Khf685 ALBUMIN 3.6 g/dL 10/29/2015 Comp Metabolic Wkk872 TPRO 6.6 g/dL 10/29/2015 Comp Metabolic Hki533 GLOB 3.0 g/dL 10/29/2015 Comp Metabolic Ule011 A/G Ratio 1.2 Ratio 10/29/2015 Comp Metabolic Ndl193 Osmo 279 mOsmo 10/29/2015 Comp Metabolic Nbt349 NA 136 mEq/L 09/03/2015 Comp Metabolic Phy919 K 4.4 mEq/L 09/03/2015 Comp Metabolic Shp090 CL 103 mEq/L 09/03/2015 Comp Metabolic Mxi606 CO2 24.0 mEq/L 09/03/2015 Comp Metabolic Qux214 ANION GAP 13 09/03/2015 Comp Metabolic Aas861 GLUCOSE 87 mg/dL 09/03/2015 Comp Metabolic Bxv738 Creat 1.1 mg/dL 09/03/2015 Comp Metabolic Mxu808 eGFR 53 ml/min/1.73m2 09/03/2015 Comp Metabolic Oau968 BUN 17 mg/dL 09/03/2015 Comp Metabolic Qyt377 B/C Ratio 16.2 Ratio 09/03/2015 Comp Metabolic Hlp436 CALCIUM 9.0 mg/dL 09/03/2015 Comp Metabolic Hjh142 ALK PHOS 55 U/L 09/03/2015 Comp Metabolic Yaf591 AST(SGOT) 83 U/L 09/03/2015 Comp Metabolic Guv020 ALT(SGPT) 126 U/L 09/03/2015 Comp Metabolic Edi892 BILI T 0.9 mg/dL 09/03/2015 Comp Metabolic Lbc296 ALBUMIN 3.9 g/dL 09/03/2015 Comp Metabolic Jdx339 TPRO 6.8 g/dL 09/03/2015 Comp Metabolic Iti102 GLOB 2.9 g/dL 09/03/2015 Comp Metabolic Tqz288 A/G Ratio 1.4 Ratio 09/03/2015 Comp Metabolic Khr032 Osmo 273 mOsmo 09/03/2015 Total T3 Ord42 TT3 0.6 ng/ml 07/09/2015 Tsh Ord6 hTSH II 1.62 uIU/mL 07/09/2015 Total T3 Ord42 TT3 0.5 ng/ml 04/02/2015 Free T4 Fjy388 FREE T4 1.23 ng/dL 04/02/2015 Tsh Ord6 [...] Procedure Codes Date THER/PROPH/DIAG INJ SC/IM CPT-4: 08325Fxtenzd 11/24/2016 URINALYSIS NONAUTO W/O SCOPE CPT-4: 92349Ejhlsww 11/07/2016 THER/PROPH/DIAG INJ SC/IM CPT-4: 68318Avpvwot 11/07/2016 THER/PROPH/DIAG INJ SC/IM CPT-4: 28545Okduvek 10/24/2016 THER/PROPH/DIAG INJ SC/IM CPT-4: 51784Hrnhmvq 09/29/2016 THER/PROPH/DIAG INJ SC/IM CPT-4: 38879Sxhwhox 08/29/2016 THER/PROPH/DIAG INJ SC/IM CPT-4: 23317Akfqioo 08/04/2016 THER/PROPH/DIAG INJ SC/IM CPT-4: 82036Iujpeas 07/21/2016 THER/PROPH/DIAG INJ SC/IM CPT-4: 41321Rhnoxnz 07/05/2016 THER/PROPH/DIAG INJ SC/IM CPT-4: 53561Zfccczz 06/22/2016 URINALYSIS NONAUTO W/O SCOPE CPT-4: 63444Tucvkvd 06/22/2016 THER/PROPH/DIAG INJ SC/IM CPT-4: 35346Siunpmq 06/09/2016 PPPS, SUBSEQ VISIT CPT-4: B4429Fxvewch 05/30/2016 ADMIN PNEUMOCOCCAL VACCINE SNOMED CT: 60588522 CPT-4: P0243Omolfjo 05/25/2016 Pneumococcal Polysaccharide Vaccine, 23-Valent, Ad CPT-4: 25560Csudryx 05/25/2016 THER/PROPH/DIAG INJ SC/IM CPT-4: 16678Wxbuzrm 05/25/2016 THER/PROPH/DIAG INJ SC/IM CPT-4: 72977Vcnmuig 05/10/2016 TRIAMCINOLONE ACET INJ NOS CPT-4: X4845Kjhxapm 04/26/2016 VITAMIN B12 INJECTION CPT-4: Q9324Srmwknf 04/26/2016 THER/PROPH/DIAG INJ SC/IM CPT-4: 56738Gmnbhsx 04/11/2016 THER/PROPH/DIAG INJ SC/IM CPT-4: 85648Funmcvd 03/31/2016 ADMIN INFLUENZA VIRUS VAC CPT-4: A0185Ejpirhw 03/15/2016 FLU VACC 4 STEPHANIE 3 YRS PLUS IM SNOMED CT: 06594590 CPT-4: 57770Ygpkfic 03/15/2016 THER/PROPH/DIAG INJ SC/IM CPT-4: 66187Momqdud 02/25/2016 THER/PROPH/DIAG INJ SC/IM CPT-4: 15142Jmvalgf 02/02/2016 THER/PROPH/DIAG INJ SC/IM CPT-4: 17033Wryzpmm 01/18/2016 VITAMIN B12 INJECTION CPT-4: G8844Ecmfwlp 12/29/2015 THER/PROPH/DIAG INJ SC/IM CPT-4: 02152Agwujzs 12/29/2015 THER/PROPH/DIAG INJ SC/IM CPT-4: 23370Mhgkaqx 12/08/2015 THER/PROPH/DIAG INJ SC/IM CPT-4: 00155Ifxojfm 11/23/2015 URINALYSIS NONAUTO W/O SCOPE CPT-4: 76204Iexoure 11/23/2015 THER/PROPH/DIAG INJ SC/IM CPT-4: 75280Rdrkrwx 11/11/2015 THER/PROPH/DIAG INJ SC/IM CPT-4: 14223Nrzkqqc 10/29/2015 THER/PROPH/DIAG INJ SC/IM CPT-4: 25507Wgxtoij 10/12/2015 VITAMIN B12 INJECTION CPT-4: A5500Txkbqyk 10/12/2015 THER/PROPH/DIAG INJ SC/IM CPT-4: 61166Vaoykjl 09/29/2015 THER/PROPH/DIAG INJ SC/IM CPT-4: 59265Vhrswci 09/17/2015 THER/PROPH/DIAG INJ SC/IM CPT-4: 93253Eirbrsv 09/03/2015 THER/PROPH/DIAG INJ SC/IM CPT-4: 84133Jsjuqfh 08/17/2015 THER/PROPH/DIAG INJ SC/IM CPT-4: 95886Rqoosov 08/06/2015 THER/PROPH/DIAG INJ SC/IM CPT-4: 83731Bssktkn 07/22/2015 THER/PROPH/DIAG INJ SC/IM CPT-4: 78137Hrabpvc 07/08/2015 THER/PROPH/DIAG INJ SC/IM CPT-4: 75139Pxdatld 06/23/2015 THER/PROPH/DIAG INJ SC/IM CPT-4: 35969Qqvutxc 06/08/2015 THER/PROPH/DIAG INJ SC/IM CPT-4: 17283Hkvtyaj 05/27/2015 DESTRUCT PREMALG LESION CPT-4: 95522Edrambl 05/19/2015 DESTRUCT PREMALG LES 2-14 CPT-4: 68016Yjgayyx 05/19/2015 THER/PROPH/DIAG INJ SC/IM CPT-4: 32449Iokevkr 05/12/2015 VITAMIN B12 INJECTION CPT-4: I9869Miseuvx 05/12/2015 THER/PROPH/DIAG INJ SC/IM CPT-4: 49148Bdsybti 04/30/2015 VITAMIN B12 INJECTION CPT-4: R1570Dunzbvy 04/30/2015 THER/PROPH/DIAG INJ SC/IM CPT-4: 65173Thaxaja 04/16/2015 THER/PROPH/DIAG INJ SC/IM CPT-4: 85769Xdvbqze 04/02/2015 VITAMIN B12 INJECTION CPT-4: E9256Nxhsllw 04/02/2015 THER/PROPH/DIAG INJ SC/IM CPT-4: 35136Staondt 03/18/2015 THER/PROPH/DIAG INJ SC/IM CPT-4: 88325Pkhogij 03/03/2015 THER/PROPH/DIAG INJ SC/IM CPT-4: 17493Uspixir 02/18/2015 THER/PROPH/DIAG INJ SC/IM CPT-4: 15388Zdzifbr 02/04/2015 VITAMIN B12 INJECTION CPT-4: G6024Ebantpe 02/04/2015 THER/PROPH/DIAG INJ SC/IM CPT-4: 56108Yfdpbem 01/22/2015 THER/PROPH/DIAG INJ SC/IM CPT-4: 89086Ncnymtm 01/08/2015 VITAMIN B12 INJECTION CPT-4: F2856Zcacpme 01/08/2015 THER/PROPH/DIAG INJ SC/IM CPT-4: 60253Uossmjr 12/25/2014 VITAMIN B12 INJECTION CPT-4: N2028Uzdirxn 12/25/2014 THER/PROPH/DIAG INJ SC/IM CPT-4: 15588Kqogbdg 12/10/2014 VITAMIN B12 INJECTION CPT-4: X3711Jyqfhit 12/10/2014 THER/PROPH/DIAG INJ SC/IM CPT-4: 16376Uppjyfj 11/26/2014 VITAMIN B12 INJECTION CPT-4: A7809Ktrsarg 11/26/2014 THER/PROPH/DIAG INJ SC/IM CPT-4: 55004Syvpkat 11/12/2014 VITAMIN B12 INJECTION CPT-4: X3921Phrarey 11/12/2014 THER/PROPH/DIAG INJ SC/IM CPT-4: 67980Gkfkxpu 10/28/2014 Vital Signs Date Vital 11/02/2016 Blood Pressure 1: 148/78 Code: 8480-6 BMI: 29.7 Code: 24089-3 Heart Rate 1: 87 bpm Height: 5'6" SpO2: 97% Weight: 184 lbs 09/29/2016 Blood Pressure 1: 128/78 Code: 8480-6 BMI: 29.7 Code: 31289-4 Heart Rate 1: 78 bpm Height: 5'6" SpO2: 98% Weight: 184 lbs 07/26/2016 Blood Pressure 1: 138/72 Code: 8480-6 BMI: 30.0 Code: 32449-0 Heart Rate 1: 85 bpm Height: 5'6" SpO2: 97% Weight: 186 lbs 05/30/2016 Blood Pressure 1: 132/76 Code: 8480-6 BMI: 30.0 Code: 62546-7 Heart Rate 1: 80 bpm Height: 5'6" SpO2: 98% Waist Measure (cm): 99 cm Weight: 186 lbs 05/25/2016 Blood Pressure 1: 13276 Code: 8480-6 BMI: 30.0 Code: 58339-1 Heart Rate 1: 80 bpm Height: 5'6" SpO2: 96% Weight: 186 lbs 02/25/2016 Blood Pressure 1: 110/64 Code: 8480-6 Heart Rate 1: 82 bpm Height: SpO2: 96% Weight: 01/25/2016 Blood Pressure 1: 118/70 Code: 8480-6 BMI: 30.0 Code: 63529-9 Heart Rate 1: 78 bpm Height: 5'6" SpO2: 97% Weight: 186 lbs 11/11/2015 Blood Pressure 1: 128/82 Code: 8480-6 BMI: 29.2 Code: 97343-7 Heart Rate 1: 86 bpm Height: 5'6" SpO2: 96% Temperature: 36.4 (C) / 97.6 (F) Weight: 181 lbs 10/12/2015 Blood Pressure 1: 118/70 Code: 8480-6 BMI: 29.2 Code: 41465-8 Heart Rate 1: 81 bpm Height: 5'6" SpO2: 95% Weight: 181 lbs 09/03/2015 Blood Pressure 1: 138/78 Code: 8480-6 BMI: 29.9 Code: 67547-6 Heart Rate 1: 88 bpm Height: 5'6" SpO2: 97% Weight: 185 lbs 05/19/2015 Blood Pressure 1: 146/78 Code: 8480-6 BMI: 30.0 Code: 01745-5 Heart Rate 1: 66 bpm Height: 5'6" SpO2: 97% Weight: 186 lbs 05/12/2015 Blood Pressure 1: 120/70 Code: 8480-6 BMI: 29.9 Code: 56129-1 Heart Rate 1: 89 bpm Height: 5'6" SpO2: 95% Weight: 185 lbs 01/13/2015 Blood Pressure 1: 140/90 Code: 8480-6 BMI: 30.3 Code: 41248-4 Heart Rate 1: 84 bpm Height: 5'6" SpO2: 95% Weight: 188 lbs 12/16/2014 Blood Pressure 1: 140/82 Code: 8480-6 BMI: 29.5 Code: 07782-6 Heart Rate 1: 86 bpm Height: 5'6" [...] data Encounters Encounter Performer Location Codes Date [id number] EST. PATIENT, LEVEL III Diagnosis: Low back pain[ICD10: M54.5] Diagnosis: Pain in thoracic spine[ICD10: M54.6] Brianna Vega MD, [facility] CPT- 4: 29618 11/02/2016 ([id number]) 86599 EST. PATIENT, LEVEL IV Diagnosis: Essential (primary) hypertension[ICD10: I10] Diagnosis: Other vitamin B12 deficiency anemias[ICD10: D51.8] Diagnosis: Generalized abdominal pain[ICD10: R10.84] Yarely Vega MD, [facility] CPT-4: 09834 09/29/2016 ([id number]) 87492 EST. PATIENT, LEVEL IV Diagnosis: Essential (primary) hypertension[ICD10: I10] Yarely Vega MD, [facility] CPT-4: 04915 07/26/2016 ([id number]) 23932 EST. PATIENT, LEVEL IV Diagnosis: Benign lipomatous neoplasm of skin and subcutaneous tissue of right leg[ICD10: D17.23] Diagnosis: Pain in right ankle and joints of right foot[ICD10: M25.571] Diagnosis: Encounter for immunization[ICD10: Z23] Diagnosis: Vitamin B12 deficiency anemia, unspecified[ICD10: D51.9] Yarely Vega MD, [facility] CPT-4: 58187 05/25/2016 57254 EST. PATIENT, LEVEL III Diagnosis: Other chest pain[ICD10: R07.89] Diagnosis: Other vitamin B12 deficiency anemias[ICD10: D51.8] Brianna Vega MD, [facility] CPT-4: 32163 02/25/2016 ([id number]) 73061 EST. 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 PATIENT, LEVEL III Diagnosis: Other vitamin B12 deficiency anemias[ICD10: D51.8] Diagnosis: Acute nasopharyngitis [common cold][ICD10: J00] Diagnosis: Other allergic rhinitis[ICD10: J30.89] Brianna Vega MD, [facility] CPT- 4: 65218 11/11/2015 ([id number]) 63142 EST. PATIENT, LEVEL IV Diagnosis: Essential tremor[ICD10: G25.0] Diagnosis: Chronic fatigue, unspecified[ICD10: R53.82] Diagnosis: Other hypersomnia[ICD10: G47.19] Diagnosis: Essential (primary) hypertension[ICD10: I10] Yarely Vega MD, [facility] CPT-4: 65688 10/12/2015 ([id number]) 59281 EST. PATIENT, LEVEL IV Diagnosis: Essential (primary) hypertension[ICD10: I10] Diagnosis: Chronic atrial fibrillation[ICD10: I48.2] Diagnosis: Abnormal levels of other serum enzymes[ICD10: R74.8] Diagnosis: Type 2 diabetes mellitus without complications[ICD10: E11.9] Diagnosis: Vitamin B12 deficiency anemia, unspecified[ICD10: D51.9] Yarely Vega MD, [facility] CPT-4: 99929 09/03/2015 ([id number]) 55240 EST. PATIENT, LEVEL III Diagnosis: Nausea[ICD10: R11.0] Diagnosis: Essential tremor[ICD10: G25.0] Diagnosis: Actinic keratosis[ICD10: L57.0] Yarely Vega MD, [facility] CPT-4: 90358 05/19/2015 ([id number]) 20852 EST. PATIENT, LEVEL IV Diagnosis: Vitamin B12 deficiency anemia, unspecified[ICD10: D51.9] Diagnosis: Chronic atrial fibrillation[ICD10: I48.2] Diagnosis: Headache[ICD10: R51] Diagnosis: Chronic fatigue, unspecified[ICD10: R53.82] Diagnosis: Cervicalgia[ICD10: M54.2] Yarely Vega MD, [facility] CPT-4: 42995 05/12/2015 ([id number]) 21852 EST. PATIENT, LEVEL IV Diagnosis: ESSENTIAL HYPERTENSION[ICD9: 401.9] Diagnosis: Afib[ICD9: 427.31] Diagnosis: Anxiety[ICD9: 300.00] Diagnosis: Insomnia[ICD9: 780.52] [facility] CPT-4: 60056 01/13/2015 ([id number]) OFFICE VISIT, NEW - LEVEL 4 Diagnosis: Hypothyroidism[ICD9: 244.9] Diagnosis: DIABETES TYPE II[ICD9: 250.00] Diagnosis: ESSENTIAL HYPERTENSION[ICD9: 401.9] Diagnosis: Afib[ICD9: 427.31] Diagnosis: Anxiety[ICD9: 300.00] Diagnosis: B12 deficiency[ICD9: 266.2] Janet Vega MD, [facility] CPT-4: 24204 12/16/2014 Plan of Care Planned Activity Notes [...] not improve. 11/02/2016 Appointment: Brianna Otoole WPtel: [address] [place], [place] [address] (15 min) Moderate 11/02/2016 Patient Education: Patient [...] carafate 09/29/2016 App[facility]ment[facility] [phone] [facility] [place] (15 min) Moderate 09/29/2016 Patient Education: Patient Medication Summary Completed 09/29/2016 Appointment: Yarely Vega WPtel: [phone] [facility] [place] (15 min) Moderate 09/27/2016 App[facility]ment: [facility] [phone] [facility] [place] (15 min) Moderate 09/20/2016 Appointment: [facility] [phone] [facility] [place] (15 min) Moderate 09/20/2016 Patient Education: Patient Medication Summary Completed 09/06/2016 App[facility]ment: [facility] [phone] [facility] [place] (15 min) Moderate 08/30/2016 [...] concerns. 07/26/2016 Appointment: [facility] [phone] [facility] (15 min) Moderate 07/26/2016 Patient Education: [...] surrogate. 05/30/2016 [facility] [phone] [facility] [facility] 05/30/2016 Patient [...] bedtime 05/25/2016 Appointment: [facility] [phone] [facility] (15 min) Moderate 05/25/2016 Patient Education: Patient Medication Summary Completed 05/25/2016 Patient Education: Obesity Completed 05/25/2016 Care Plan: Referral Order SNOMED-CT : [id number] Pending 05/25/2016 Appointment: Injection 05/10/2016 Patient Education: Patient Medication Summary Completed 05/10/2016 Appointment: Injection 04/26/2016 Patient Education: Patient Medication Summary Completed 04/26/2016 Appointment: Injection 04/11/2016 Patient Education: Patient Medication Summary Completed 04/11/2016 Appointment: Injection 03/31/2016 Patient Education: Patient Medication Summary Completed 03/31/2016 Patient Education: Patient Medication Summary Completed 03/22/2016 Care Plan[facility] 36[facility] Pending 03/22/2016 Appointment: Injection 03/15/2016 Patient Education: [...] any concerns. 02/25/2016 Appointment: [facility] [phone] [facility] (15 min) Moderate 02/25/2016 Patient Education: [...] the patients recent sleep study - recommended [place] home patient eval of pt - nocturnal [...] the patients recent sleep study - recommended [place] home patient eval of pt - nocturnal [...] daughter who had [facility]. She is interested in looking at assisted living facilities for her mom as Faiza's family is for assisted living placement sooner rather than later. 10/12/2015 Appointment: Yarely Vega W[facility]el: [facility] (15 min) Moderate 10/12/2015 Patient [...] Completed 08/17/2015 Appointment: [facility] [phone] [facility] (15 min) Moderate 08/11/2015 Appointment: [...] x 2 05/19/2015 Appointment: [facility] [phone] [facility] (30 min) Complex 05/19/2015 Patient Education: [...] prn alprazolam. 01/13/2015 Appointment: Yarely Vega WPtel[facility] (15 min) Moderate 01/13/2015 Patient [...] medications. 12/16/2014 Appointment: [facility] [phone] [phone] [place] New Patient 12/16/2014 Patient [...] daughter who had left [facility]. She is interested in looking at [...] the patients recent sleep study - recommended [place] home patient eval of pt - nocturnal [...] the patients recent sleep study - recommended [place] home patient eval of pt - nocturnal oxygen study - will order - if positive oxygen concentrator with humidification. morenita probiotic - take one pill daily. Hypertension [...]
--- OUTSIDE RECORDS SUMMARY | 2018-12-05 16:23 | XMS REPORT | CCD ---
Author Author [facility] Organization [facility] Address [address] [place] [address] Phone Care Team Providers Care Technical Specialist [employer] Name Role Phone PP Unavailable CCM Unavailable Summary Purpose Interface Exchange Insurance Providers Payer name Policy type / Coverage type Covered libertarian ID Effective Begin Date Effective End Date WPS Medicare Part B Medicare Part B [id number] Unknown Unknown Principal Life Insurance Medicare Part B [id number] Unknown Unknown Family history Brother Diagnosis Age At Onset Heart Attack Unknown Mother Diagnosis Age At Onset Hypertension Unknown kidney disease Unknown Stroke Unknown Father Diagnosis Age At Onset Arthritis Unknown Social History Social History Element Codes Description Effective Dates Marital status Unknown Single 12/16/2014 Employment Unknown Retired 12/16/[address]: 6412056 Former smoker 12/16/[address]: 667934186 Never drinks alcohol 12/16/2014 Allergies, Adverse Reactions, [...] Start Date Stop Date Status Fill Instructions Topamax 25 mg tablet RxNorm: 795416 TAKE 1 TABLET BY MOUTH EVERY DAY AT BEDTIME 12/06/2016 04/04/2017 Active Generic For:TOPAMAX 25MG 12/06/2016 9:15:13 AM Lac-Hydrin Five 5 % lotion RxNorm: 136240 1 Gram(s) TOP daily 12/02/2016 01/30/2017 Active cyanocobalamin (vit B-12) 1,000 mcg/mL injection solution RxNorm: 211991 Milliliter(s) Inj 11/24/2016 11/24/2016 Inactive Ceftin 500 mg tablet RxNorm: 330914 1 Tablet(s) PO BID 11/11/2016 11/17/2016 Inactive Cipro 500 mg tablet RxNorm: 490610 1 Tablet(s) PO BID 11/11/2016 11/10/2016 Inactive Cipro 500 mg tablet RxNorm: 430467 1 Tablet(s) PO BID 11/11/2016 11/11/2016 Inactive cyanocobalamin (vit B-12) 1,000 mcg/mL injection solution RxNorm: 050870 1 Milliliter(s) Inj 11/07/2016 11/07/2016 Inactive hydrocodone 5 mg-acetaminophen 325 mg tablet RxNorm: 100138 1-2 Tablet(s) PO Q6 as needed for pain 11/02/2016 11/06/2016 Inactive levothyroxine 125 mcg tablet RxNorm: 116610 Tablet(s) 1 Tablet(s) PO daily 10/24/2016 04/21/2017 Active liothyronine 5 mcg tablet RxNorm: 980311 1 Tablet(s) PO BID 10/24/2016 04/21/2017 Active cyanocobalamin (vit B-12) 1,000 mcg/mL injection solution RxNorm: 018124 Milliliter(s) Inj 10/24/2016 10/24/2016 Inactive hydrocodone 5 mg-acetaminophen 325 mg tablet RxNorm: 481966 1-2 Tablet(s) PO Q6 as needed for pain 10/17/2016 10/21/2016 Inactive Keflex 500 mg capsule RxNorm: 692306 1 Capsule(s) PO TID 10/07/2016 10/06/2016 Inactive Keflex 500 mg capsule RxNorm: 234474 1 Capsule(s) PO TID 10/07/2016 10/16/2016 Inactive Please deliver to patient cyanocobalamin (vit B-12) 1,000 mcg/mL injection solution RxNorm: 778971 1 Milliliter(s) Inj 09/29/2016 09/29/2016 Inactive alprazolam 0.25 mg tablet RxNorm: 734181 1 Tablet(s) PO BID 09/20/2016 03/18/2017 Active Zoloft 50 mg tablet RxNorm: 576464 Tablet(s) TAKE 1 TABLET BY MOUTH DAILY 09/14/2016 03/12/2017 Active Generic For:ZOLOFT 50MG Cozaar 100 mg tablet RxNorm: 384947 1 Tablet(s) PO daily 09/14/2016 No Stop Date Active metoprolol tartrate 50 mg tablet RxNorm: 374450 1/2 Tablet(s) PO BID 09/14/2016 12/12/2016 Active liothyronine 5 mcg tablet RxNorm: 163844 1 Tablet(s) PO BID 09/14/2016 10/23/2016 Inactive Calmoseptine 0.44 %-20.6 % topical ointment RxNorm: 380454 1 Application TOP BID and as needed to sore on buttocks 09/07/2016 No Stop Date Active cyanocobalamin (vit B-12) 1,000 mcg/mL injection solution RxNorm: 403831 Milliliter(s) Inj 08/29/2016 08/29/2016 Inactive hydrocodone 5 mg-acetaminophen 325 mg tablet RxNorm: 955670 1-2 Tablet(s) PO Q6 as needed for pain 08/29/2016 10/16/2016 Inactive levothyroxine 125 mcg tablet RxNorm: 029803 1 Tablet(s) PO daily 08/25/2016 10/23/2016 Inactive Topamax 25 mg tablet RxNorm: 024573 TAKE 1 TABLET BY MOUTH EVERY DAY AT BEDTIME 08/17/2016 12/05/2016 Inactive Generic For:TOPAMAX 25MG 08/17/2016 2:14:37 PM hydrocodone 5 mg-acetaminophen 325 mg tablet RxNorm: 672649 1-2 Tablet(s) PO Q6 as needed for pain 08/11/2016 08/28/2016 Inactive hydrocodone 5 mg-acetaminophen 325 mg tablet RxNorm: 572597 1 -2 Tablet(s) PO Q6 as needed for pain 08/11/2016 08/18/2016 Inactive hydrocodone 5 mg-acetaminophen 325 mg tablet RxNorm: 310834 1 Tablet(s) PO Q6 as needed for pain 08/05/2016 08/10/2016 Inactive cyanocobalamin (vit B-12) 1,000 mcg/mL injection solution RxNorm: 012862 Milliliter(s) Inj 08/04/2016 08/04/2016 Inactive Norvasc 10 mg tablet RxNorm: 432582 1 Tablet(s) PO daily 07/26/2016 07/20/2017 Active levothyroxine 125 mcg tablet RxNorm: 076009 1 Tablet(s) PO daily 07/21/2016 10/18/2016 Inactive alprazolam 0.25 mg tablet RxNorm: 646757 1 Tablet(s) PO QHS 07/21/2016 09/19/2016 Inactive Norvasc 5 mg tablet RxNorm: 028101 1 Tablet(s) PO daily 07/21/2016 07/25/2016 Inactive cyanocobalamin (vit B-12) 1,000 mcg/mL injection solution RxNorm: 177021 Milliliter(s) Inj 07/21/2016 07/21/2016 Inactive Zoloft 50 mg tablet RxNorm: 605971 Tablet(s) TAKE 1 TABLET BY MOUTH DAILY 07/21/2016 09/13/2016 Inactive Generic For:ZOLOFT 50MG cyanocobalamin (vit B-12) 1,000 mcg/mL injection solution RxNorm: 218589 1 Milliliter(s) Inj 07/05/2016 07/05/2016 Inactive cyanocobalamin (vit B-12) 1,000 mcg/mL injection solution RxNorm: 662373 1 Milliliter(s) Inj 06/22/2016 06/22/2016 Inactive cyanocobalamin (vit B-12) 1,000 mcg/mL injection solution RxNorm: 680871 Milliliter(s) Inj 06/09/2016 06/09/2016 Inactive Aricept 10 mg tablet RxNorm: 939952 1 Tablet(s) PO daily 05/27/2016 05/21/2017 Active Mobic 15 mg tablet RxNorm: 610358 1 Tablet(s) PO daily 05/27/2016 05/21/2017 Active levothyroxine 125 mcg tablet RxNorm: 967070 1 Tablet(s) PO daily 05/25/2016 07/20/2016 Inactive cyanocobalamin (vit B-12) 1,000 mcg/mL injection solution RxNorm: 519418 1 Milliliter(s) Inj 05/25/2016 05/25/2016 Inactive doxycycline hyclate 100 mg capsule RxNorm: 8974350 1 Capsule(s) PO BID 05/16/2016 05/15/2016 Inactive doxycycline hyclate 100 mg capsule RxNorm: 9975959 1 Capsule(s) PO BID 05/16/2016 05/22/2016 Inactive cyanocobalamin (vit B-12) 1,000 mcg/mL injection solution RxNorm: 374895 Milliliter(s) Inj 05/10/2016 05/10/2016 Inactive cyanocobalamin (vit B-12) 1,000 mcg/mL injection solution RxNorm: 426653 Milliliter(s) Inj 04/26/2016 04/26/2016 Inactive Topamax 25 mg tablet RxNorm: 361124 1 Tablet(s) PO QPM 04/22/2016 08/16/2016 Inactive cyanocobalamin (vit B-12) 1,000 mcg/mL injection solution RxNorm: 144380 Milliliter(s) 1 Milliliter(s) Inj [id number] 04/11/2016 12/31/2017 Active liothyronine 5 mcg tablet RxNorm: 424833 1 Tablet(s) PO BID 04/11/2016 09/13/2016 Inactive cyanocobalamin (vit B-12) 1,000 mcg/mL injection solution RxNorm: 284353 Milliliter(s) Inj 04/11/2016 04/11/2016 Inactive cyanocobalamin (vit B-12) 1,000 mcg/mL injection solution RxNorm: 274166 Milliliter(s) Inj 03/31/2016 03/31/2016 Inactive cyanocobalamin (vit B-12) 1,000 mcg/mL injection solution RxNorm: 836120 1 Milliliter(s) Inj 03/15/2016 03/15/2016 Inactive levothyroxine 125 mcg tablet RxNorm: 210177 1 Tablet(s) PO daily 2016 03/03/2016 Inactive levothyroxine 125 mcg tablet RxNorm: 077119 1 Tablet(s) PO daily 2016 05/24/2016 Inactive cyanocobalamin (vit B-12) 1,000 mcg/mL injection solution RxNorm: 127235 Milliliter(s) Inj 02/25/2016 02/25/2016 Inactive cyanocobalamin (vit B-12) 1,000 mcg/mL injection solution RxNorm: 895556 1 Milliliter(s) Inj 02/02/2016 02/02/2016 Inactive sucralfate 1 gram tablet RxNorm: 926717 1 Tablet(s) PO QHS 01/25/2016 No Stop Date Active amiodarone 200 mg tablet RxNorm: 862112 1/2 Tablet(s) PO BID 01/25/2016 No Stop Date Active cyanocobalamin (vit B-12) 1,000 mcg/mL injection solution RxNorm: 786482 Milliliter(s) Inj 01/18/2016 01/18/2016 Inactive cyanocobalamin (vit B-12) 1,000 mcg/mL injection solution RxNorm: 610420 Milliliter(s) Inj 12/29/2015 12/29/2015 Inactive Topamax 25 mg tablet RxNorm: 823611 1 Tablet(s) PO QPM 12/08/2015 04/05/2016 Inactive cyanocobalamin (vit B-12) 1,000 mcg/mL injection solution RxNorm: 446752 Milliliter(s) Inj 12/08/2015 12/08/2015 Inactive Bactrim DS 800 mg-160 mg tablet RxNorm: 771495 1 Tablet(s) PO BID 11/23/2015 11/22/2015 Inactive cyanocobalamin (vit B-12) 1,000 mcg/mL injection solution RxNorm: 916531 Milliliter(s) Inj 11/23/2015 11/23/2015 Inactive Bactrim DS 800 mg-160 mg tablet RxNorm: 742019 1 Tablet(s) PO BID 11/23/2015 11/29/2015 Inactive cyanocobalamin (vit B-12) 1,000 mcg/mL injection solution RxNorm: 817614 Milliliter(s) Inj 11/11/2015 11/11/2015 Inactive amoxicillin 500 mg capsule RxNorm: 128433 1 Capsule(s) PO TID 11/10/2015 11/19/2015 Inactive Zithromax Z-Henrique 250 mg tablet RxNorm: 211183 1 Tablet(s) PO UD 11/10/2015 01/24/2016 Inactive zpack x 1 amoxicillin 500 mg capsule RxNorm: 836975 1 Capsule(s) PO TID 11/10/2015 11/09/2015 Inactive cyanocobalamin (vit B-12) 1,000 mcg/mL injection solution RxNorm: 417062 1 Milliliter(s) Inj 10/29/2015 10/29/2015 Inactive Arnot 3 capsule RxNorm: 1 Capsule(s) PO QAM , 2 Capsules at noon, 1 Capsule QHS 10/13/2015 No Stop Date Active potassium chloride ER 20 mEq tablet,extended release RxNorm: 083281 2 Tablet(s) PO daily at noon 10/13/2015 No Stop Date Active alprazolam 0.25 mg tablet RxNorm: 956070 1 Tablet(s) PO QHS 10/13/2015 07/20/2016 Inactive amiodarone 200 mg tablet RxNorm: 758593 1 Tablet(s) PO BID 10/13/2015 01/24/2016 Inactive cyanocobalamin (vit B-12) 1,000 mcg/mL injection solution RxNorm: 814850 1 Milliliter(s) Inj 10/12/2015 10/12/2015 Inactive Zofran 4 mg tablet RxNorm: 023461 1 Tablet(s) PO daily as needed 10/07/2015 05/24/2016 Inactive Zoloft 50 mg tablet RxNorm: 321223 TAKE 1 TABLET BY MOUTH DAILY 10/05/2015 05/01/2016 Inactive Generic For:ZOLOFT 50MG cyanocobalamin (vit B-12) 1,000 mcg/mL injection solution RxNorm: 782798 1 Milliliter(s) Inj 09/29/2015 09/29/2015 Inactive buspirone 15 mg tablet RxNorm: 168197 1 Tablet(s) PO BID 09/17/2015 09/10/2016 Inactive cyanocobalamin (vit B-12) 1,000 mcg/mL injection solution RxNorm: 583180 1 Milliliter(s) Inj 09/17/2015 09/17/2015 Inactive Norvasc 5 mg tablet RxNorm: 099410 1 Tablet(s) PO daily 09/17/2015 07/20/2016 Inactive liothyronine 5 mcg tablet RxNorm: 145700 1 Tablet(s) PO BID 09/17/2015 03/14/2016 Inactive Zoloft 50 mg tablet RxNorm: 538632 1 Tablet(s) PO daily 09/17/2015 10/04/2015 Inactive buspirone 15 mg tablet RxNorm: 794239 1 Tablet(s) PO BID 09/14/2015 09/16/2015 Inactive Topamax 25 mg tablet RxNorm: 283089 1 Tablet(s) PO QPM 09/03/2015 12/07/2015 Inactive cyanocobalamin (vit B-12) 1,000 mcg/mL injection solution RxNorm: 519505 1 Milliliter(s) Inj 09/03/2015 09/03/2015 Inactive cyanocobalamin (vit B-12) 1,000 mcg/mL injection solution RxNorm: 248601 Milliliter(s) Inj 08/17/2015 08/17/2015 Inactive cyanocobalamin (vit B-12) 1,000 mcg/mL injection solution RxNorm: 057480 Milliliter(s) Inj 08/06/2015 08/06/2015 Inactive levothyroxine 150 mcg tablet RxNorm: 658484 1 Tablet(s) PO daily 07/22/2015 03/03/2016 Inactive Aricept 10 mg tablet RxNorm: 806750 1 Tablet(s) PO daily 07/22/2015 05/26/2016 Inactive Mobic 15 mg tablet RxNorm: 002137 1 Tablet(s) PO daily 07/22/2015 05/26/2016 Inactive cyanocobalamin (vit B-12) 1,000 mcg/mL injection solution RxNorm: 212189 Milliliter(s) Inj 07/22/2015 07/22/2015 Inactive liothyronine 5 mcg tablet RxNorm: 872144 1 Tablet(s) PO BID 07/22/2015 09/16/2015 Inactive cyanocobalamin (vit B-12) 1,000 mcg/mL injection solution RxNorm: 840291 Milliliter(s) Inj 07/08/2015 07/08/2015 Inactive cyanocobalamin (vit B-12) 1,000 mcg/mL injection solution RxNorm: 992884 Milliliter(s) Inj 06/23/2015 06/23/2015 Inactive cyanocobalamin (vit B-12) 1,000 mcg/mL injection solution RxNorm: 754955 1 Milliliter(s) Inj 06/08/2015 06/08/2015 Inactive cyanocobalamin (vit B-12) 1,000 mcg/mL injection solution RxNorm: 044592 Milliliter(s) Inj 05/27/2015 05/27/2015 Inactive Aricept 10 mg tablet RxNorm: 314652 1 Tablet(s) PO daily 05/20/2015 07/21/2015 Inactive Zofran 4 mg tablet RxNorm: 663548 1 Tablet(s) PO daily as needed 05/20/2015 06/18/2015 Inactive alprazolam 0.25 mg tablet RxNorm: 022259 1 Tablet(s) PO BID 05/20/2015 10/12/2015 Inactive Mobic 15 mg tablet RxNorm: 795935 1 Tablet(s) PO daily 05/20/2015 07/21/2015 Inactive tramadol ER 100 mg tablet,extended release 24 hr RxNorm: 356510 1 Tablet(s) PO Q6 as needed 05/13/2015 No Stop Date Active cyanocobalamin (vit B-12) 1,000 mcg/mL injection solution RxNorm: 928101 1 Milliliter(s) Inj 05/12/2015 05/12/2015 Inactive Topamax 25 mg tablet RxNorm: 867621 1 Tablet(s) PO BID (start at one pill at bedtime x 1week then twice daily thereafter) 05/12/2015 09/02/2015 Inactive cyanocobalamin (vit B-12) 1,000 mcg/mL injection kit RxNorm: 627896 kit Inj 04/30/2015 04/30/2015 Inactive cyanocobalamin (vit B-12) 1,000 mcg/mL injection solution RxNorm: 614810 Milliliter(s) Inj 04/16/2015 04/16/2015 Inactive levothyroxine 150 mcg tablet RxNorm: 715525 1 Tablet(s) PO daily 04/08/2015 07/21/2015 Inactive cyanocobalamin (vit B-12) 1,000 mcg/mL injection solution RxNorm: 024249 Milliliter(s) 1 Milliliter(s) Inj Q5exhcx 04/08/2015 04/10/2016 Inactive Cytomel 5 mcg tablet RxNorm: 045190 1 Tablet(s) PO BID 04/08/2015 10/12/2015 Inactive Cytomel 5 mcg tablet RxNorm: 642365 1 Tablet(s) PO BID 04/07/2015 04/07/2015 Inactive Cytomel 5 mcg tablet RxNorm: 632638 1 Tablet(s) PO BID 04/07/2015 04/06/2015 Inactive cyanocobalamin (vit B-12) 1,000 mcg/mL injection solution RxNorm: 590133 Milliliter(s) Inj 04/02/2015 04/02/2015 Inactive cyanocobalamin (vit B-12) 1,000 mcg/mL injection solution RxNorm: 917859 Milliliter(s) Inj 03/18/2015 03/18/2015 Inactive cyanocobalamin (vit B-12) 1,000 mcg/mL injection solution RxNorm: 452559 Milliliter(s) 1 Milliliter(s) Inj [id number] 03/18/2015 04/07/2015 Inactive cyanocobalamin (vit B-12) 1,000 mcg/mL injection solution RxNorm: 238734 1 Milliliter(s) Inj H7ofgnx 03/16/2015 03/17/2015 Inactive cyanocobalamin (vit B-12) 1,000 mcg/mL injection solution RxNorm: 891324 Milliliter(s) Inj 03/03/2015 03/03/2015 Inactive cyanocobalamin (vit B-12) 1,000 mcg/mL injection solution RxNorm: 275505 Milliliter(s) Inj 02/18/2015 02/18/2015 Inactive cyanocobalamin (vit B-12) 1,000 mcg/mL injection solution RxNorm: 732320 Milliliter(s) Inj 02/04/2015 02/04/2015 Inactive cyanocobalamin (vit B-12) 1,000 mcg/mL injection solution RxNorm: 111590 Milliliter(s) Inj 01/22/2015 01/22/2015 Inactive Lac-Hydrin Five 5 % lotion RxNorm: 703292 1 TOP daily 01/13/2015 03/13/2015 Inactive Lac-Hydrin Five 5 % lotion RxNorm: 253373 1 TOP daily 01/13/2015 01/12/2015 Inactive cyanocobalamin (vit B-12) 1,000 mcg/mL injection solution RxNorm: 773289 Milliliter(s) Inj 01/08/2015 01/08/2015 Inactive cyanocobalamin (vit B-12) 1,000 mcg/mL injection solution RxNorm: 192936 Milliliter(s) Inj 12/25/2014 12/25/2014 Inactive levothyroxine 150 mcg tablet RxNorm: 833932 1 Tablet(s) PO daily 12/24/2014 04/07/2015 Inactive tramadol 50 mg tablet RxNorm: 104618 1-2 Tablet(s) PO Q6 as needed 12/17/2014 05/12/2015 Inactive alprazolam 0.25 mg tablet RxNorm: 041955 1 Tablet(s) PO BID 12/17/2014 04/15/2015 Inactive Pradaxa 150 mg capsule RxNorm: 5478888 1 Capsule(s) PO BID 12/16/2014 No Stop Date Active metoprolol tartrate 50 mg tablet RxNorm: 612648 1/2 Tablet(s) PO BID 12/16/2014 09/13/2016 Inactive buspirone 15 mg tablet RxNorm: 907463 1 Tablet(s) PO BID 12/16/2014 09/13/2015 Inactive cyanocobalamin (vit B-12) 1,000 mcg/mL injection solution RxNorm: 000959 1 Milliliter(s) Inj K1rptiv 12/16/2014 03/15/2015 Inactive cyanocobalamin (vit B-12) 1,000 mcg/mL injection solution RxNorm: 143045 1 Milliliter(s) Inj Z1cqqvy 12/16/2014 12/15/2014 Inactive sucralfate 1 gram tablet RxNorm: 982436 Tablet(s) PO QID 12/16/2014 12/10/2015 Inactive cyanocobalamin (vit B-12) 1,000 mcg/mL injection solution RxNorm: 968054 Milliliter(s) Inj 12/10/2014 12/10/2014 Inactive cyanocobalamin (vit B-12) 1,000 mcg/mL injection solution RxNorm: 600953 Milliliter(s) Inj 11/26/2014 11/26/2014 Inactive Zoloft 50 mg tablet RxNorm: 555381 1 Tablet(s) PO daily 11/24/2014 06/21/2015 Inactive Zoloft 50 mg tablet RxNorm: 310034 1 Tablet(s) PO daily 11/24/2014 11/23/2014 Inactive cyanocobalamin (vit B-12) 1,000 mcg/mL injection kit RxNorm: 913404 Milliliter(s) Inj 11/12/2014 11/12/2014 Inactive cyanocobalamin (vit B-12) 1,000 mcg/mL injection solution RxNorm: 839864 Milliliter(s) Inj 10/28/2014 10/28/2014 Inactive [SAVINGS FOR NON-COVERED DRUGS -- BIN:[id number], PCN: [id number], Group: [id number], ID# [id number], Questions: . THIS IS NOT INSURANCE.] promethazine oral RxNorm: 8745 oral No Start Date Active digoxin 125 mcg tablet RxNorm: 972405 Tablet(s) PO every other day No Start Date Active furosemide 40 mg tablet RxNorm: 665020 1 Tablet(s) PO daily No Start Date Active Vitamin D3 5,000 unit tablet RxNorm: 028076 1 Tablet(s) PO daily No Start Date Active erythromycin 250 mg capsule,delayed release RxNorm: 675881 1 Capsule(s) PO AC No Start Date Active Protonix 40 mg tablet,delayed release RxNorm: 999192 1 Tablet(s) PO BID No Start Date Active Cozaar 100 mg tablet RxNorm: 902609 1 Tablet(s) PO daily No Start Date 09/13/2016 Inactive sucralfate 1 gram tablet RxNorm: 484224 Tablet(s) PO QID No Start Date 12/15/2014 Inactive amiodarone 200 mg tablet RxNorm: 363615 2 Tablet(s) PO daily No Start Date 10/13/2015 Inactive buspirone 15 mg tablet RxNorm: 630115 1 Tablet(s) PO daily No Start Date 12/15/2014 Inactive potassium chloride ER 20 mEq tablet,extended release RxNorm: 286596 1 Tablet(s) PO daily No Start Date 10/12/2015 Inactive Prilosec 40 mg capsule,delayed release RxNorm: 365909 1 Capsule(s) PO daily No Start Date 09/02/2015 Inactive Arnot 3 capsule RxNorm: Capsule(s) PO No Start Date 10/12/2015 Inactive alprazolam 0.25 mg tablet RxNorm: 512047 Tablet(s) PO QHS No Start Date 12/16/2014 Inactive levothyroxine 125 mcg tablet RxNorm: 248317 1 Tablet(s) PO daily No Start Date 12/23/2014 Inactive liothyronine 5 mcg tablet RxNorm: 599953 1 Tablet(s) PO BID No Start Date 07/21/2015 Inactive Mobic 15 mg tablet RxNorm: 736230 Tablet(s) PO daily No Start Date 05/19/2015 Inactive Norvasc 5 mg tablet RxNorm: 347073 1 Tablet(s) PO daily No Start Date 09/16/2015 Inactive Zofran 4 mg tablet RxNorm: 889481 1 Tablet(s) PO daily as needed No Start Date 05/19/2015 Inactive tramadol 50 mg tablet RxNorm: 654885 1 Tablet(s) PO daily as needed No Start Date 12/16/2014 Inactive amiodarone 200 mg tablet RxNorm: 532396 1 Tablet(s) PO daily No Start Date 10/12/2015 Inactive meclizine 25 mg tablet RxNorm: 623138 Tablet(s) PO as needed No Start Date 05/24/2016 Inactive Pradaxa 150 mg capsule RxNorm: 0269519 1 Capsule(s) PO daily No Start Date 12/15/2014 Inactive metoprolol tartrate 50 mg tablet RxNorm: 054929 1/2 Tablet(s) PO No Start Date 12/15/2014 Inactive Aricept 10 mg tablet RxNorm: 252269 Tablet(s) PO daily No Start Date 05/19/2015 Inactive Calmoseptine 0.44 %-20.6 % topical ointment RxNorm: 766774 1 Application TOP BID and as needed to sore on buttocks No Start Date 09/06/2016 Inactive Zithromax Z-Henrique 250 mg tablet RxNorm: 107952 1 Tablet(s) PO UD No Start Date 11/09/2015 Inactive zpack x 1 Medication Administered Medication Codes Instructions Start Date Status cyanocobalamin (vit B-12) 1,000 mcg/mL injection solution RxNorm: 406027 Milliliter 11/24/2016 No longer Active cyanocobalamin (vit B-12) 1,000 mcg/mL injection solution RxNorm: 800853 1Milliliter 11/07/2016 No longer Active cyanocobalamin (vit B-12) 1,000 mcg/mL injection solution RxNorm: 609539 Milliliter 10/24/2016 No longer Active cyanocobalamin (vit B-12) 1,000 mcg/mL injection solution RxNorm: 782335 1Milliliter 09/29/2016 No longer Active cyanocobalamin (vit B-12) 1,000 mcg/mL injection solution RxNorm: 467423 Milliliter 08/29/2016 No longer Active cyanocobalamin (vit B-12) 1,000 mcg/mL injection solution RxNorm: 337361 Milliliter 08/04/2016 No longer Active cyanocobalamin (vit B-12) 1,000 mcg/mL injection solution RxNorm: 142849 Milliliter 07/21/2016 No longer Active cyanocobalamin (vit B-12) 1,000 mcg/mL injection solution RxNorm: 086720 1Milliliter 07/05/2016 No longer Active cyanocobalamin (vit B-12) 1,000 mcg/mL injection solution RxNorm: 924559 1Milliliter 06/22/2016 No longer Active cyanocobalamin (vit B-12) 1,000 mcg/mL injection solution RxNorm: 116031 Milliliter 06/09/2016 No longer Active cyanocobalamin (vit B-12) 1,000 mcg/mL injection solution RxNorm: 022954 1Milliliter 05/25/2016 No longer Active cyanocobalamin (vit B-12) 1,000 mcg/mL injection solution RxNorm: 373438 Milliliter 05/10/2016 No longer Active cyanocobalamin (vit B-12) 1,000 mcg/mL injection solution RxNorm: 569745 Milliliter 04/26/2016 No longer Active cyanocobalamin (vit B-12) 1,000 mcg/mL injection solution RxNorm: 870043 Milliliter 04/11/2016 No longer Active cyanocobalamin (vit B-12) 1,000 mcg/mL injection solution RxNorm: 361688 Milliliter 03/31/2016 No longer Active cyanocobalamin (vit B-12) 1,000 mcg/mL injection solution RxNorm: 100713 1Milliliter 03/15/2016 No longer Active cyanocobalamin (vit B-12) 1,000 mcg/mL injection solution RxNorm: 302610 Milliliter 02/25/2016 No longer Active cyanocobalamin (vit B-12) 1,000 mcg/mL injection solution RxNorm: 289553 1Milliliter 02/02/2016 No longer Active cyanocobalamin (vit B-12) 1,000 mcg/mL injection solution RxNorm: 159579 Milliliter 01/18/2016 No longer Active cyanocobalamin (vit B-12) 1,000 mcg/mL injection solution RxNorm: 620271 Milliliter 12/29/2015 No longer Active cyanocobalamin (vit B-12) 1,000 mcg/mL injection solution RxNorm: 941296 Milliliter 12/08/2015 No longer Active cyanocobalamin (vit B-12) 1,000 mcg/mL injection solution RxNorm: 541996 Milliliter 11/23/2015 No longer Active cyanocobalamin (vit B-12) 1,000 mcg/mL injection solution RxNorm: 075306 Milliliter 11/11/2015 No longer Active cyanocobalamin (vit B-12) 1,000 mcg/mL injection solution RxNorm: 282736 1Milliliter 10/29/2015 No longer Active cyanocobalamin (vit B-12) 1,000 mcg/mL injection solution RxNorm: 071708 1Milliliter 10/12/2015 No longer Active cyanocobalamin (vit B-12) 1,000 mcg/mL injection solution RxNorm: 309027 1Milliliter 09/29/2015 No longer Active cyanocobalamin (vit B-12) 1,000 mcg/mL injection solution RxNorm: 619384 1Milliliter 09/17/2015 No longer Active cyanocobalamin (vit B-12) 1,000 mcg/mL injection solution RxNorm: 933848 1Milliliter 09/03/2015 No longer Active cyanocobalamin (vit B-12) 1,000 mcg/mL injection solution RxNorm: 710160 Milliliter 08/17/2015 No longer Active cyanocobalamin (vit B-12) 1,000 mcg/mL injection solution RxNorm: 702816 Milliliter 08/06/2015 No longer Active cyanocobalamin (vit B-12) 1,000 mcg/mL injection solution RxNorm: 779454 Milliliter 07/22/2015 No longer Active cyanocobalamin (vit B-12) 1,000 mcg/mL injection solution RxNorm: 958898 Milliliter 07/08/2015 No longer Active cyanocobalamin (vit B-12) 1,000 mcg/mL injection solution RxNorm: 493828 Milliliter 06/23/2015 No longer Active cyanocobalamin (vit B-12) 1,000 mcg/mL injection solution RxNorm: 678799 1Milliliter 06/08/2015 No longer Active cyanocobalamin (vit B-12) 1,000 mcg/mL injection solution RxNorm: 395910 Milliliter 05/27/2015 No longer Active cyanocobalamin (vit B-12) 1,000 mcg/mL injection solution RxNorm: 820214 1Milliliter 05/12/2015 No longer Active cyanocobalamin (vit B-12) 1,000 mcg/mL injection kit RxNorm: 417199 kit 04/30/2015 No longer Active cyanocobalamin (vit B-12) 1,000 mcg/mL injection solution RxNorm: 125683 Milliliter 04/16/2015 No longer Active cyanocobalamin (vit B-12) 1,000 mcg/mL injection solution RxNorm: 496375 Milliliter 04/02/2015 No longer Active cyanocobalamin (vit B-12) 1,000 mcg/mL injection solution RxNorm: 007163 Milliliter 03/18/2015 No longer Active cyanocobalamin (vit B-12) 1,000 mcg/mL injection solution RxNorm: 709807 Milliliter 03/03/2015 No longer Active cyanocobalamin (vit B-12) 1,000 mcg/mL injection solution RxNorm: 517172 Milliliter 02/18/2015 No longer Active cyanocobalamin (vit B-12) 1,000 mcg/mL injection solution RxNorm: 931837 Milliliter 02/04/2015 No longer Active cyanocobalamin (vit B-12) 1,000 mcg/mL injection solution RxNorm: 202291 Milliliter 01/22/2015 No longer Active cyanocobalamin (vit B-12) 1,000 mcg/mL injection solution RxNorm: 617998 [facility] 01/08/2015 No longer Active cyanocobalamin (vit B-12) 1,000 mcg/mL injection solution RxNorm: 282099 [facility] 12/25/2014 No longer Active cyanocobalamin (vit B-12) 1,000 mcg/mL injection solution RxNorm: 298766 [facility] 12/10/2014 No longer Active cyanocobalamin (vit B-12) 1,000 mcg/mL injection solution RxNorm: 024807 [facility] 11/26/2014 No longer Active cyanocobalamin (vit B-12) 1,000 mcg/mL injection kit RxNorm: 525836 [facility] 11/12/2014 No longer Active cyanocobalamin (vit B-12) 1,000 mcg/mL injection solution RxNorm: 307552 [facility] 10/28/2014 No longer Active Immunizations Vaccine Codes Date Status Pneumococcal (Adult) CVX: 33 05/25/2016 completed Influenza CVX: 141 03/15/2016 completed Assessments Condition Codes Effective Dates Vitamin B12 deficiency anemia, unspecified ICD-10: D51.9 ICD-9: 281.1 11/24/2016 Dysuria ICD-10: R30.0 ICD-9: 788.1 11/07/2016 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 ICD-9: 281.1 11/07/2016 Low back pain ICD-10: M54.5 ICD-9: [...] Item Item Code Result Date Culture Urine [id number] URINE CULTURE SEE NOTES 11/10/2016 Culture Urine [id number] Continued Results 11/10/2016 Urine Culture Ucult Complete [...] Ord15 CALCIUM 9.3 mg/dL 09/29/2016 Free T4 Zgz196 FREE T4 0.99 ng/dL 09/07/2016 Cbc With [...] 30.0 pg 09/07/2016 Cbc With Differential Ord2 [place]% 9.8 % 09/07/2016 Cbc With Differential Ord2 [...] 1.75 K/ul 09/07/2016 Cbc With Differential Ord2 [place] ABS# 0.6 K/ul 09/07/2016 Cbc With Differential Ord2 [place] ABS# 0.1 K/ul 09/07/2016 Cbc With Differential Ord2 Baso ABS# 0.0 K/ul 09/07/2016 Tsh Ord6 hTSH II 1.41 uIU/mL 09/07/2016 Culture Urine [id number] URINE CULTURE SEE NOTES 06/27/2016 Lipid Ord30 CHOL 196 mg/dL 06/22/2016 Lipid Ord30 HDL 63.0 mg/dl 06/22/2016 Lipid Ord30 TRIG 154 mg/dL 06/22/2016 Lipid Ord30 LDL 102 mg/dL 06/22/2016 Lipid Ord30 C/HDL 3.1 Ratio 06/22/2016 Hepatic Bpa940 ALBUMIN 4.2 g/dL 06/22/2016 Hepatic Gjp678 TPRO 7.0 g/dL 06/22/2016 Hepatic Iro951 GLOB 2.8 g/dL 06/22/2016 Hepatic Kfv043 A/G Ratio 1.5 Ratio 06/22/2016 Hepatic Wdm608 ALK PHOS 54 U/L 06/22/2016 Hepatic Jph950 ALT(SGPT) 30 U/L 06/22/2016 Hepatic Ami298 AST(SGOT) 24 U/L 06/22/2016 Hepatic Kzm480 BILI T 1.1 mg/dL 06/22/2016 Hepatic Oaa671 BILI D 0.2 mg/dL 06/22/2016 Hepatic Gwp272 BILI I 0.9 mg/dL 06/22/2016 Comp Metabolic Jwd737 NA 139 mEq/L 06/14/2016 Comp Metabolic Nva170 K 4.6 mEq/L 06/14/2016 Comp Metabolic Xmj284 CL 108 mEq/L 06/14/2016 Comp Metabolic Fwp305 CO2 22.0 mEq/L 06/14/2016 Comp Metabolic Ctl383 ANION GAP 14 06/14/2016 Comp Metabolic Pir953 GLUCOSE 114 mg/dL 06/14/2016 Comp Metabolic Tan038 Creat 1.2 mg/dL 06/14/2016 Comp Metabolic Inw336 eGFR 48 ml/min/1.73m2 06/14/2016 Comp Metabolic Kfb555 BUN 24 mg/dL 06/14/2016 Comp Metabolic Vgw405 B/C Ratio 20.9 Ratio 06/14/2016 Comp Metabolic Ojl830 CALCIUM 9.9 mg/dL 06/14/2016 Comp Metabolic Qrj574 ALK PHOS 47 U/L 06/14/2016 Comp Metabolic Ypc136 AST(SGOT) 28 U/L 06/14/2016 Comp Metabolic Cib280 ALT(SGPT) 32 U/L 06/14/2016 Comp Metabolic Pck564 BILI T 0.9 mg/dL 06/14/2016 Comp Metabolic Asg698 ALBUMIN 4.1 g/dL 06/14/2016 Comp Metabolic Jms849 TPRO 6.9 g/dL 06/14/2016 Comp Metabolic Cfa511 GLOB 2.8 g/dL 06/14/2016 Comp Metabolic Eej841 A/G Ratio 1.5 Ratio 06/14/2016 Comp Metabolic Zll591 Osmo 282 mOsmo 06/14/2016 Tsh Ord6 hTSH II 1.26 uIU/mL 06/14/2016 Free T4 Lwg286 FREE T4 1.09 ng/dL 06/14/2016 Tsh Ord6 hTSH II 0.28 uIU/mL 02/02/2016 Digoxin Ord9 DIGOXIN 0.7 NG/ML 02/02/2016 Free T4 Azj972 FREE T4 1.23 ng/dL 02/02/2016 Hepatic Haf560 ALBUMIN 4.0 g/dL 02/02/2016 Hepatic Yks017 TPRO 7.0 g/dL 02/02/2016 Hepatic Aca225 GLOB 3.0 g/dL 02/02/2016 Hepatic Ehm375 A/G Ratio 1.3 Ratio 02/02/2016 Hepatic Vgj511 ALK PHOS 57 U/L 02/02/2016 Hepatic Avn576 ALT(SGPT) 62 U/L 02/02/2016 Hepatic Xpd376 AST(SGOT) 54 U/L 02/02/2016 Hepatic Jmq312 BILI T 0.8 mg/dL 02/02/2016 Hepatic Uzn779 BILI D 0.2 mg/dL 02/02/2016 Hepatic Vxr481 BILI I 0.6 mg/dL 02/02/2016 Urine Culture Ucult Preliminary No Growth Day 1 11/25/2015 Urine Culture Ucult Complete No Growth Day 2 11/25/2015 Hepatic Ucc142 ALBUMIN 3.9 g/dL 11/11/2015 Hepatic Prx749 TPRO 7.0 g/dL 11/11/2015 Hepatic Ilx924 GLOB 3.1 g/dL 11/11/2015 Hepatic Dmj768 A/G Ratio 1.3 Ratio 11/11/2015 Hepatic Rwr159 ALK PHOS 63 U/L 11/11/2015 Hepatic Qyo743 ALT(SGPT) 107 U/L 11/11/2015 Hepatic Mkj940 AST(SGOT) 101 U/L 11/11/2015 Hepatic Yte303 BILI T 0.6 mg/dL 11/11/2015 Hepatic Sal633 BILI D 0.1 mg/dL 11/11/2015 Hepatic Jwi306 BILI I 0.5 mg/dL 11/11/2015 Comp Metabolic Dak686 NA 138 mEq/L 10/29/2015 Comp Metabolic Axy597 K 5.0 mEq/L 10/29/2015 Comp Metabolic Awf839 CL 105 mEq/L 10/29/2015 Comp Metabolic Rtu670 CO2 23.0 mEq/L 10/29/2015 Comp Metabolic Bil448 ANION GAP 15 10/29/2015 Comp Metabolic Mbn358 GLUCOSE 105 mg/dL 10/29/2015 Comp Metabolic Obk684 Creat 1.0 mg/dL 10/29/2015 Comp Metabolic Fvv600 eGFR 55 ml/min/1.73m2 10/29/2015 Comp Metabolic Mal646 BUN 20 mg/dL 10/29/2015 Comp Metabolic Piy604 B/C Ratio 19.4 Ratio 10/29/2015 Comp Metabolic Dap943 CALCIUM 8.8 mg/dL 10/29/2015 Comp Metabolic Gxw391 ALK PHOS 56 U/L 10/29/2015 Comp Metabolic Lrr460 AST(SGOT) 66 U/L 10/29/2015 Comp Metabolic Mkz640 ALT(SGPT) 78 U/L 10/29/2015 Comp Metabolic Hxe958 BILI T 0.7 mg/dL 10/29/2015 Comp Metabolic Epy079 ALBUMIN 3.6 g/dL 10/29/2015 Comp Metabolic Ptx885 TPRO 6.6 g/dL 10/29/2015 Comp Metabolic Fuo032 GLOB 3.0 g/dL 10/29/2015 Comp Metabolic Bmz514 A/G Ratio 1.2 Ratio 10/29/2015 Comp Metabolic Lqt286 Osmo 279 mOsmo 10/29/2015 Comp Metabolic Obt221 NA 136 mEq/L 09/03/2015 Comp Metabolic Lin139 K 4.4 mEq/L 09/03/2015 Comp Metabolic Meu162 CL 103 mEq/L 09/03/2015 Comp Metabolic Jqj699 CO2 24.0 mEq/L 09/03/2015 Comp Metabolic Myf899 ANION GAP 13 09/03/2015 Comp Metabolic Agp898 GLUCOSE 87 mg/dL 09/03/2015 Comp Metabolic Pwm516 Creat 1.1 mg/dL 09/03/2015 Comp Metabolic Vaz831 eGFR 53 ml/min/1.73m2 09/03/2015 Comp Metabolic Wfm232 BUN 17 mg/dL 09/03/2015 Comp Metabolic Ote552 B/C Ratio 16.2 Ratio 09/03/2015 Comp Metabolic Qiq763 CALCIUM 9.0 mg/dL 09/03/2015 Comp Metabolic Txg503 ALK PHOS 55 U/L 09/03/2015 Comp Metabolic Hqb375 AST(SGOT) 83 U/L 09/03/2015 Comp Metabolic Vbh579 ALT(SGPT) 126 U/L 09/03/2015 Comp Metabolic Cje870 BILI T 0.9 mg/dL 09/03/2015 Comp Metabolic Gwd309 ALBUMIN 3.9 g/dL 09/03/2015 Comp Metabolic Qgf842 TPRO 6.8 g/dL 09/03/2015 Comp Metabolic Ail066 GLOB 2.9 g/dL 09/03/2015 Comp Metabolic Baf247 A/G Ratio 1.4 Ratio 09/03/2015 Comp Metabolic Vzc954 Osmo 273 mOsmo 09/03/2015 Total T3 Ord42 TT3 0.6 ng/ml 07/09/2015 Tsh Ord6 hTSH II 1.62 uIU/mL 07/09/2015 Total T3 Ord42 TT3 0.5 ng/ml 04/02/2015 Free T4 Nmx379 FREE T4 1.23 ng/dL 04/02/2015 Tsh Ord6 [...] Procedure Codes Date THER/PROPH/DIAG INJ SC/IM CPT-4: 54475Saajpwy 11/24/2016 URINALYSIS NONAUTO W/O SCOPE CPT-4: 65071Lynzguv 11/07/2016 THER/PROPH/DIAG INJ SC/IM CPT-4: 72281Dvjpsly 11/07/2016 THER/PROPH/DIAG INJ SC/IM CPT-4: 70642Hvtjnsz 10/24/2016 THER/PROPH/DIAG INJ SC/IM CPT-4: 20211Xjcupcs 09/29/2016 THER/PROPH/DIAG INJ SC/IM CPT-4: 68109Hmtywyb 08/29/2016 THER/PROPH/DIAG INJ SC/IM CPT-4: 68964Mtnsxhw 08/04/2016 THER/PROPH/DIAG INJ SC/IM CPT-4: 75091Ivylvzc 07/21/2016 THER/PROPH/DIAG INJ SC/IM CPT-4: 04326Ieqkayt 07/05/2016 THER/PROPH/DIAG INJ SC/IM CPT-4: 66709Rbjedze 06/22/2016 URINALYSIS NONAUTO W/O SCOPE CPT-4: 16740Qoqmqdb 06/22/2016 THER/PROPH/DIAG INJ SC/IM CPT-4: 02796Ovmxuiv 06/09/2016 PPPS, SUBSEQ VISIT CPT-4: K3531Fgugodh 05/30/2016 ADMIN PNEUMOCOCCAL VACCINE SNOMED CT: 36389957 CPT-4: M1496Sfvxrwe 05/25/2016 Pneumococcal Polysaccharide Vaccine, 23-Valent, Ad CPT-4: 20525Ugrxsmc 05/25/2016 THER/PROPH/DIAG INJ SC/IM CPT-4: 35484Heyxsuz 05/25/2016 THER/PROPH/DIAG INJ SC/IM CPT-4: 14532Ezbrrss 05/10/2016 TRIAMCINOLONE ACET INJ NOS CPT-4: K8155Qczvhpm 04/26/2016 VITAMIN B12 INJECTION CPT-4: N8658Wvokyol 04/26/2016 THER/PROPH/DIAG INJ SC/IM CPT-4: 85322Hrdbtmb 04/11/2016 THER/PROPH/DIAG INJ SC/IM CPT-4: 58852Odpsblt 03/31/2016 ADMIN INFLUENZA VIRUS VAC CPT-4: W9518Sibafux 03/15/2016 FLU VACC 4 STEPHANIE [address] YRS PLUS IM SNOMED CT: 02096022 CPT-4: 00801Qsqaviy 03/15/2016 THER/PROPH/DIAG INJ SC/IM CPT-4: 03340Uluvxsy 02/25/2016 THER/PROPH/DIAG INJ SC/IM CPT-4: 34388Eceudwe 02/02/2016 THER/PROPH/DIAG INJ SC/IM CPT-4: 80627Ulhekpa 01/18/2016 VITAMIN B12 INJECTION CPT-4: P9525Ahgpxau 12/29/2015 THER/PROPH/DIAG INJ SC/IM CPT-4: 74228Vykissb 12/29/2015 THER/PROPH/DIAG INJ SC/IM CPT-4: 73853Aqagzdf 12/08/2015 THER/PROPH/DIAG INJ SC/IM CPT-4: 31515Ctrvyys 11/23/2015 URINALYSIS NONAUTO W/O SCOPE CPT-4: 47119Hfqgjte 11/23/2015 THER/PROPH/DIAG INJ SC/IM CPT-4: 46906Jyncvmk 11/11/2015 THER/PROPH/DIAG INJ SC/IM CPT-4: 35860Ivcxqtl 10/29/2015 THER/PROPH/DIAG INJ SC/IM CPT-4: 94743Bepicsm 10/12/2015 VITAMIN B12 INJECTION CPT-4: K2076Cwxowbe 10/12/2015 THER/PROPH/DIAG INJ SC/IM CPT-4: 30830Rfoixsy 09/29/2015 THER/PROPH/DIAG INJ SC/IM CPT-4: 47927Bdwoctk 09/17/2015 THER/PROPH/DIAG INJ SC/IM CPT-4: 62789Ksyglsh 09/03/2015 THER/PROPH/DIAG INJ SC/IM CPT-4: 05550Gjradlj 08/17/2015 THER/PROPH/DIAG INJ SC/IM CPT-4: 79722Snynavg 08/06/2015 THER/PROPH/DIAG INJ SC/IM CPT-4: 61795Yxrjjye 07/22/2015 THER/PROPH/DIAG INJ SC/IM CPT-4: 11295Ustwcsu 07/08/2015 THER/PROPH/DIAG INJ SC/IM CPT-4: 02154Gvrzpwk 06/23/2015 THER/PROPH/DIAG INJ SC/IM CPT-4: 90550Vcwdnuy 06/08/2015 THER/PROPH/DIAG INJ SC/IM CPT-4: 79627Qjiktut 05/27/2015 DESTRUCT PREMALG LESION CPT-4: 21001Ppeiine 05/19/2015 DESTRUCT PREMALG LES 2-14 CPT-4: 38422Rkwhhdv 05/19/2015 THER/PROPH/DIAG INJ SC/IM CPT-4: 72778Makpugx 05/12/2015 VITAMIN B12 INJECTION CPT-4: T8274Qnfmzmb 05/12/2015 THER/PROPH/DIAG INJ SC/IM CPT-4: 15288Ighwovr 04/30/2015 VITAMIN B12 INJECTION CPT-4: B3541Hxzazwj 04/30/2015 THER/PROPH/DIAG INJ SC/IM CPT-4: 19535Nryelbu 04/16/2015 THER/PROPH/DIAG INJ SC/IM CPT-4: 39948Lwjhlxl 04/02/2015 VITAMIN B12 INJECTION CPT-4: Y4973Vlpfpmu 04/02/2015 THER/PROPH/DIAG INJ SC/IM CPT-4: 62746Utpjiyn 03/18/2015 THER/PROPH/DIAG INJ SC/IM CPT-4: 88031Onbjmfk 03/03/2015 THER/PROPH/DIAG INJ SC/IM CPT-4: 07443Ybzxgqq 02/18/2015 THER/PROPH/DIAG INJ SC/IM CPT-4: 31061Bqfwicx 02/04/2015 VITAMIN B12 INJECTION CPT-4: P1380Ummrwva 02/04/2015 THER/PROPH/DIAG INJ SC/IM CPT-4: 14775Mhkhapp 01/22/2015 THER/PROPH/DIAG INJ SC/IM CPT-4: 92404Jcrggap 01/08/2015 VITAMIN B12 INJECTION CPT-4: Y5831Uwxqzlg 01/08/2015 THER/PROPH/DIAG INJ SC/IM CPT-4: 55000Nspnqim 12/25/2014 VITAMIN B12 INJECTION CPT-4: O0377Zkasfbp 12/25/2014 THER/PROPH/DIAG INJ SC/IM CPT-4: 11957Bgmcerh 12/10/2014 VITAMIN B12 INJECTION CPT-4: A6548Ftlxdqx 12/10/2014 THER/PROPH/DIAG INJ SC/IM CPT-4: 96592Nbzmxdp 11/26/2014 VITAMIN B12 INJECTION CPT-4: R7683Xtdmusf 11/26/2014 THER/PROPH/DIAG INJ SC/IM CPT-4: 44895Tanwqyi 11/12/2014 VITAMIN B12 INJECTION CPT-4: A4191Ipaflpz 11/12/2014 THER/PROPH/DIAG INJ SC/IM CPT-4: 29227Keuoaml 10/28/2014 Vital Signs Date Vital 11/02/2016 Blood Pressure 1: 148/78 Code: 8480-6 BMI: 29.7 Code: 31803-2 Heart Rate 1: 87 bpm Height: 5'6" SpO2: 97% Weight: 184 lbs 09/29/2016 Blood Pressure 1: 128/78 Code: 8480-6 BMI: 29.7 Code: 26726-6 Heart Rate 1: 78 bpm Height: 5'6" SpO2: 98% Weight: 184 lbs 07/26/2016 Blood Pressure 1: 138/72 Code: 8480-6 BMI: 30.0 Code: 43688-6 Heart Rate 1: 85 bpm Height: 5'6" SpO2: 97% Weight: 186 lbs 05/30/2016 Blood Pressure 1: 132/76 Code: 8480-6 BMI: 30.0 Code: 84979-4 Heart Rate 1: 80 bpm Height: 5'6" SpO2: 98% Waist Measure (cm): 99 cm Weight: 186 lbs 05/25/2016 Blood Pressure 1: 13276 Code: 8480-6 BMI: 30.0 Code: 54211-2 Heart Rate 1: 80 bpm Height: 5'6" SpO2: 96% Weight: 186 lbs 02/25/2016 Blood Pressure 1: 110/64 Code: 8480-6 Heart Rate 1: 82 bpm Height: SpO2: 96% Weight: 01/25/2016 Blood Pressure 1: 118/70 Code: 8480-6 BMI: 30.0 Code: 29555-3 Heart Rate 1: 78 bpm Height: 5'6" SpO2: 97% Weight: 186 lbs 11/11/2015 Blood Pressure 1: 128/82 Code: 8480-6 BMI: 29.2 Code: 55661-2 Heart Rate 1: 86 bpm Height: 5'6" SpO2: 96% Temperature: 36.4 (C) / 97.6 (F) Weight: 181 lbs 10/12/2015 Blood Pressure 1: 118/70 Code: 8480-6 BMI: 29.2 Code: 56585-3 Heart Rate 1: 81 bpm Height: 5'6" SpO2: 95% Weight: 181 lbs 09/03/2015 Blood Pressure 1: 138/78 Code: 8480-6 BMI: 29.9 Code: 94090-8 Heart Rate 1: 88 bpm Height: 5'6" SpO2: 97% Weight: 185 lbs 05/19/2015 Blood Pressure 1: 146/78 Code: 8480-6 BMI: 30.0 Code: 96570-0 Heart Rate 1: 66 bpm Height: 5'6" SpO2: 97% Weight: 186 lbs 05/12/2015 Blood Pressure 1: 120/70 Code: 8480-6 BMI: 29.9 Code: 23622-3 Heart Rate 1: 89 bpm Height: 5'6" SpO2: 95% Weight: 185 lbs 01/13/2015 Blood Pressure 1: 140/90 Code: 8480-6 BMI: 30.3 Code: 75214-7 Heart Rate 1: 84 bpm Height: 5'6" SpO2: 95% Weight: 188 lbs 12/16/2014 Blood Pressure 1: 140/82 Code: 8480-6 BMI: 29.5 Code: 36452-8 Heart Rate 1: 86 bpm Height: 5'6" [...] data Encounters Encounter Performer Location Codes Date [id number] EST. PATIENT, LEVEL III Diagnosis: Low back pain[ICD10: M54.5] Diagnosis: Pain in thoracic spine[ICD10: M54.6] Brianna Vega MD, [facility] CPT- 4: 67833 11/02/2016 ([id number]) 18590 EST. PATIENT, LEVEL IV Diagnosis: Essential (primary) hypertension[ICD10: I10] Diagnosis: Other vitamin B12 deficiency anemias[ICD10: D51.8] Diagnosis: Generalized abdominal pain[ICD10: R10.84] Yarely Vega MD, [facility] CPT-4: 99925 09/29/2016 ([id number]) 79064 EST. PATIENT, LEVEL IV Diagnosis: Essential (primary) hypertension[ICD10: I10] Yarely Vega MD, [facility] CPT-4: 14870 07/26/2016 ([id number]) 10863 EST. PATIENT, LEVEL IV Diagnosis: Benign lipomatous neoplasm of skin and subcutaneous tissue of right leg[ICD10: D17.23] Diagnosis: Pain in right ankle and joints of right foot[ICD10: M25.571] Diagnosis: Encounter for immunization[ICD10: Z23] Diagnosis: Vitamin B12 deficiency anemia, unspecified[ICD10: D51.9] Yarely Vega MD, [facility] CPT-4: 05040 05/25/2016 [id number] EST. PATIENT, LEVEL III Diagnosis: Other chest pain[ICD10: R07.89] Diagnosis: Other vitamin B12 deficiency anemias[ICD10: D51.8] Brianna Vega MD, [facility] CPT-4: 24155 02/25/2016 ([id number]) 90425 EST. 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 PATIENT, LEVEL III Diagnosis: Other vitamin B12 deficiency anemias[ICD10: D51.8] Diagnosis: Acute nasopharyngitis [common cold][ICD10: J00] Diagnosis: Other allergic rhinitis[ICD10: J30.89] Brianna Vega MD, [facility] CPT- 4: 15505 11/11/2015 ([id number]) 56595 EST. PATIENT, LEVEL IV Diagnosis: Essential tremor[ICD10: G25.0] Diagnosis: Chronic fatigue, unspecified[ICD10: R53.82] Diagnosis: Other hypersomnia[ICD10: G47.19] Diagnosis: Essential (primary) hypertension[ICD10: I10] Yarely Vega MD, [facility] CPT-4: 47620 10/12/2015 ([id number]) 67484 EST. PATIENT, LEVEL IV Diagnosis: Essential (primary) hypertension[ICD10: I10] Diagnosis: Chronic atrial fibrillation[ICD10: I48.2] Diagnosis: Abnormal levels of other serum enzymes[ICD10: R74.8] Diagnosis: Type 2 diabetes mellitus without complications[ICD10: E11.9] Diagnosis: Vitamin B12 deficiency anemia, unspecified[ICD10: D51.9] Yarely Vega MD, [facility] CPT-4: 45148 09/03/2015 ([id number]) 51718 EST. PATIENT, LEVEL III Diagnosis: Nausea[ICD10: R11.0] Diagnosis: Essential tremor[ICD10: G25.0] Diagnosis: Actinic keratosis[ICD10: L57.0] Yarely Vega MD, [facility] CPT-4: 90623 05/19/2015 ([id number]) 75949 EST. PATIENT, LEVEL IV Diagnosis: Vitamin B12 deficiency anemia, unspecified[ICD10: D51.9] Diagnosis: Chronic atrial fibrillation[ICD10: I48.2] Diagnosis: Headache[ICD10: R51] Diagnosis: Chronic fatigue, unspecified[ICD10: R53.82] Diagnosis: Cervicalgia[ICD10: M54.2] [facility] CPT-4: 96354 05/12/2015 ([id number]) 51718 EST. PATIENT, LEVEL IV Diagnosis: ESSENTIAL HYPERTENSION[ICD9: 401.9] Diagnosis: Afib[ICD9: 427.31] Diagnosis: Anxiety[ICD9: 300.00] Diagnosis: Insomnia[ICD9: 780.52] [facility] CPT-4: 86303 01/13/2015 ([id number]) OFFICE VISIT, NEW - LEVEL 4 Diagnosis: Hypothyroidism[ICD9: 244.9] Diagnosis: DIABETES TYPE II[ICD9: 250.00] Diagnosis: ESSENTIAL HYPERTENSION[ICD9: 401.9] Diagnosis: Afib[ICD9: 427.31] Diagnosis: Anxiety[ICD9: 300.00] Diagnosis: B12 deficiency[ICD9: 266.2] [facility] CPT-4: 52982 12/16/2014 Plan of Care Planned Activity Notes [...] not improve. 11/02/2016 Appointment: Brianna Otoole [facility]Ptel[facility] [place] (15 min) Moderate 11/02/2016 Patient Education: Patient [...] with carafate 09/29/2016 Appointment[phone] [place] (15 min) Moderate 09/29/2016 Patient Education: Patient Medication Summary Completed 09/29/2016 Appointment: [phone] [place] (15 min) Moderate 09/27/2016 Appointment: Yarely Vega WPtel: [phone] [facility] [place] (15 min) Moderate 09/20/2016 Appointment: [phone] [place] (15 min) Moderate 09/20/2016 Patient Education: Patient Medication Summary Completed 09/06/2016 Appointment: [facility]arely [facility]ega [facility]Ptel[facility] [phone] [facility] [place] (15 min) Moderate 08/30/2016 Appointment: Injection [...] concerns. 07/26/2016 Appointment: [phone] [facility] [place] (15 min) Moderate 07/26/2016 Patient Education: [...] surrogate. 05/30/2016 Appointment: Bri[facility] Otoole [facility]Ptel[phone] [facility] [facility] - Annual Wellness Visit 05/30/2016 [...] bedtime 05/25/2016 Appointment: [phone] (15 min) Moderate 05/25/2016 Patient Education: Patient Medication Summary Completed 05/25/2016 Patient Education: Obesity Completed 05/25/2016 Care Plan: Referral Order SNOMED-CT : [id number] Pending 05/25/2016 Appointment: Injection 05/10/2016 Patient Education: Patient Medication Summary Completed 05/10/2016 Appointment: Injection 04/26/2016 Patient Education: Patient Medication Summary Completed 04/26/2016 Appointment: Injection 04/11/2016 Patient Education: Patient Medication Summary Completed 04/11/2016 Appointment: Injection 03/31/2016 Patient Education: Patient Medication Summary Completed 03/31/2016 Patient Education: Patient Medication Summary Completed 03/22/2016 [facility] Pending 03/22/2016 Appointment: Injection 03/15/2016 Patient Education: [...] concerns. 02/25/2016 Appointment: Bri[facility] Otoole WPtel[phone] [facility] [place] (15 min) Moderate 02/25/2016 Patient Education: Patient [...] the patients recent sleep study - recommended [place] home patient eval of pt - nocturnal [...] the patients recent sleep study - recommended [place] patient eval of pt - nocturnal oxygen [...] case with Faiza's daughter who had left [facility]. She is interested in looking at assisted living facilities for her mom as Faiza's family is for assisted living placement sooner rather than later. 10/12/2015 Appointment: Yarely Vega [facility]Ptel[facility] (15 min) Moderate 10/12/2015 Patient Education: Patient [...] Summary Completed 08/17/2015 Appointment: [phone] [facility] (15 min) Moderate 08/11/2015 Appointment: Injection 08/06/2015 [...] 2 05/19/2015 Appointment: [phone] (30 min) Complex 05/19/2015 Patient Education: Patient [...] prn alprazolam. 01/13/2015 Appointment: Yarely Vega WPtel: [address] [place], [place] [address] (15 min) Moderate 01/13/2015 Patient Education: Patient [...] current medications. 12/16/2014 Appointment: Janet Fam WPtel: [address] [place], [place] [phone] [place] ([place]) New Patient 12/16/2014 Patient Education: Patient Medication Summary Completed 12/16/2014 Appointment: Injection 12/10/2014 Patient Education: Patient Medication Summary Completed 12/10/2014 Appointment: Injection 11/26/2014 Patient Education: Patient Medication Summary Completed 11/26/2014 Patient Education: Patient Medication Summary Completed 11/12/2014 Appointment: Nurse Visit 10/28/2014 Patient Education: Patient Medication Summary Completed 10/28/2014 Appointment: Injection 10/14/2014 Referral: Genaro Bravo Referral Appointment Requested Instructions Comment . Medicare Exam - today we discussed [...] DOPA paperwork for health care surrogate. . Hypertension - well controlled - continue [...] case with Faiza's daughter who had left [facility]. She is interested in looking at [...] the patients recent sleep study - recommended [place] home patient eval of pt - nocturnal [...] control. Abdominal pain - continue with carafate Schedule thyroid ultrasound Add T3 and digoxin [...] exposure. No change in current medications. . Hypertension - well controlled - continue [...] the patients recent sleep study - recommended [place] home patient eval of pt - nocturnal oxygen study - will order - if positive oxygen concentrator with humidification. I suspect that she has the nocturnal hypoxemia due to her chronic atrial fibrillation and history of coronary artery disease with chronic systolic heart failure. change priolosec to bedtime to see if [...] spray in the nasal steroid allergy spray. Reminder - please take the TOPAMAX daily [...] control. headaches - take topamax at bedtime melatonin can take 3mg to 10mg at [...]
--- OUTSIDE RECORDS SUMMARY | 2018-12-05 16:26 | XMS REPORT | CCD ---
Author Author [facility] Organization [facility] Address [address] [place] [address] Phone Care Team Providers Care Scientific Informatics Project Leader Name Role Phone PP Unavailable CCM Unavailable Summary Purpose Interface Exchange Insurance Providers Payer name Policy type / Coverage type Covered republican ID Effective Begin Date Effective End Date WPS Medicare Part B Medicare Part B [id number] Unknown Unknown Principal Life Insurance Medicare Part B [id number] Unknown Unknown Family history Brother Diagnosis Age At Onset Heart Attack Unknown Mother Diagnosis Age At Onset Hypertension Unknown kidney disease Unknown Stroke Unknown Father Diagnosis Age At Onset Arthritis Unknown Social History Social History Element Codes Description Effective Dates Marital status Unknown Single 12/16/2014 Employment Unknown Retired 12/16/[address]: 8317661 Former smoker 12/16/[address]: 122384109 Never drinks alcohol 12/16/2014 Allergies, Adverse Reactions, [...] Start Date Stop Date Status Fill Instructions Lac-Hydrin Five 5 % lotion RxNorm: 564565 1 Gram(s) TOP daily 12/02/2016 01/30/2017 Active cyanocobalamin (vit B-12) 1,000 mcg/mL injection solution RxNorm: 267996 Milliliter(s) Inj 11/24/2016 11/24/2016 Inactive Ceftin 500 mg tablet RxNorm: 998014 1 Tablet(s) PO BID 11/11/2016 11/17/2016 Inactive Cipro 500 mg tablet RxNorm: 173583 1 Tablet(s) PO BID 11/11/2016 11/10/2016 Inactive Cipro 500 mg tablet RxNorm: 298412 1 Tablet(s) PO BID 11/11/2016 11/11/2016 Inactive cyanocobalamin (vit B-12) 1,000 mcg/mL injection solution RxNorm: 274628 1 Milliliter(s) Inj 11/07/2016 11/07/2016 Inactive hydrocodone 5 mg-acetaminophen 325 mg tablet RxNorm: 960844 1-2 Tablet(s) PO Q6 as needed for pain 11/02/2016 11/06/2016 Inactive levothyroxine 125 mcg tablet RxNorm: 582657 Tablet(s) 1 Tablet(s) PO daily 10/24/2016 04/21/2017 Active liothyronine 5 mcg tablet RxNorm: 437325 1 Tablet(s) PO BID 10/24/2016 04/21/2017 Active cyanocobalamin (vit B-12) 1,000 mcg/mL injection solution RxNorm: 248531 Milliliter(s) Inj 10/24/2016 10/24/2016 Inactive hydrocodone 5 mg-acetaminophen 325 mg tablet RxNorm: 941777 1-2 Tablet(s) PO Q6 as needed for pain 10/17/2016 10/21/2016 Inactive Keflex 500 mg capsule RxNorm: 311223 1 Capsule(s) PO TID 10/07/2016 10/06/2016 Inactive Keflex 500 mg capsule RxNorm: 916615 1 Capsule(s) PO TID 10/07/2016 10/16/2016 Inactive Please deliver to patient cyanocobalamin (vit B-12) 1,000 mcg/mL injection solution RxNorm: 538261 1 Milliliter(s) Inj 09/29/2016 09/29/2016 Inactive alprazolam 0.25 mg tablet RxNorm: 160183 1 Tablet(s) PO BID 09/20/2016 03/18/2017 Active Zoloft 50 mg tablet RxNorm: 638315 Tablet(s) TAKE 1 TABLET BY MOUTH DAILY 09/14/2016 03/12/2017 Active Generic For:ZOLOFT 50MG Cozaar 100 mg tablet RxNorm: 052976 1 Tablet(s) PO daily 09/14/2016 No Stop Date Active metoprolol tartrate 50 mg tablet RxNorm: 420058 1/2 Tablet(s) PO BID 09/14/2016 12/12/2016 Active liothyronine 5 mcg tablet RxNorm: 552354 1 Tablet(s) PO BID 09/14/2016 10/23/2016 Inactive Calmoseptine 0.44 %-20.6 % topical ointment RxNorm: 394488 1 Application TOP BID and as needed to sore on buttocks 09/07/2016 No Stop Date Active cyanocobalamin (vit B-12) 1,000 mcg/mL injection solution RxNorm: 039369 Milliliter(s) Inj 08/29/2016 08/29/2016 Inactive hydrocodone 5 mg-acetaminophen 325 mg tablet RxNorm: 394162 1-2 Tablet(s) PO Q6 as needed for pain 08/29/2016 10/16/2016 Inactive levothyroxine 125 mcg tablet RxNorm: 350078 1 Tablet(s) PO daily 08/25/2016 10/23/2016 Inactive Topamax 25 mg tablet RxNorm: 444275 TAKE 1 TABLET BY MOUTH EVERY DAY AT BEDTIME 08/17/2016 12/14/2016 Active Generic For:TOPAMAX 25MG 08/17/2016 2:14:37 PM hydrocodone 5 mg-acetaminophen 325 mg tablet RxNorm: 235228 1-2 Tablet(s) PO Q6 as needed for pain 08/11/2016 08/28/2016 Inactive hydrocodone 5 mg-acetaminophen 325 mg tablet RxNorm: 313711 1 -2 Tablet(s) PO Q6 as needed for pain 08/11/2016 08/18/2016 Inactive hydrocodone 5 mg-acetaminophen 325 mg tablet RxNorm: 029900 1 Tablet(s) PO Q6 as needed for pain 08/05/2016 08/10/2016 Inactive cyanocobalamin (vit B-12) 1,000 mcg/mL injection solution RxNorm: 318275 Milliliter(s) Inj 08/04/2016 08/04/2016 Inactive Norvasc 10 mg tablet RxNorm: 726214 1 Tablet(s) PO daily 07/26/2016 07/20/2017 Active levothyroxine 125 mcg tablet RxNorm: 629527 1 Tablet(s) PO daily 07/21/2016 10/18/2016 Inactive alprazolam 0.25 mg tablet RxNorm: 327557 1 Tablet(s) PO QHS 07/21/2016 09/19/2016 Inactive Norvasc 5 mg tablet RxNorm: 739593 1 Tablet(s) PO daily 07/21/2016 07/25/2016 Inactive cyanocobalamin (vit B-12) 1,000 mcg/mL injection solution RxNorm: 216932 Milliliter(s) Inj 07/21/2016 07/21/2016 Inactive Zoloft 50 mg tablet RxNorm: 305001 Tablet(s) TAKE 1 TABLET BY MOUTH DAILY 07/21/2016 09/13/2016 Inactive Generic For:ZOLOFT 50MG cyanocobalamin (vit B-12) 1,000 mcg/mL injection solution RxNorm: 360041 1 Milliliter(s) Inj 07/05/2016 07/05/2016 Inactive cyanocobalamin (vit B-12) 1,000 mcg/mL injection solution RxNorm: 556582 1 Milliliter(s) Inj 06/22/2016 06/22/2016 Inactive cyanocobalamin (vit B-12) 1,000 mcg/mL injection solution RxNorm: 844939 Milliliter(s) Inj 06/09/2016 06/09/2016 Inactive Aricept 10 mg tablet RxNorm: 070453 1 Tablet(s) PO daily 05/27/2016 05/21/2017 Active Mobic 15 mg tablet RxNorm: 872463 1 Tablet(s) PO daily 05/27/2016 05/21/2017 Active levothyroxine 125 mcg tablet RxNorm: 206800 1 Tablet(s) PO daily 05/25/2016 07/20/2016 Inactive cyanocobalamin (vit B-12) 1,000 mcg/mL injection solution RxNorm: 602552 1 Milliliter(s) Inj 05/25/2016 05/25/2016 Inactive doxycycline hyclate 100 mg capsule RxNorm: 1736327 1 Capsule(s) PO BID 05/16/2016 05/15/2016 Inactive doxycycline hyclate 100 mg capsule RxNorm: 5648789 1 Capsule(s) PO BID 05/16/2016 05/22/2016 Inactive cyanocobalamin (vit B-12) 1,000 mcg/mL injection solution RxNorm: 770560 Milliliter(s) Inj 05/10/2016 05/10/2016 Inactive cyanocobalamin (vit B-12) 1,000 mcg/mL injection solution RxNorm: 679719 Milliliter(s) Inj 04/26/2016 04/26/2016 Inactive Topamax 25 mg tablet RxNorm: 623886 1 Tablet(s) PO QPM 04/22/2016 08/16/2016 Inactive cyanocobalamin (vit B-12) 1,000 mcg/mL injection solution RxNorm: 195936 Milliliter(s) 1 Milliliter(s) Inj [id number] 04/11/2016 12/31/2017 Active liothyronine 5 mcg tablet RxNorm: 187838 1 Tablet(s) PO BID 04/11/2016 09/13/2016 Inactive cyanocobalamin (vit B-12) 1,000 mcg/mL injection solution RxNorm: 320847 Milliliter(s) Inj 04/11/2016 04/11/2016 Inactive cyanocobalamin (vit B-12) 1,000 mcg/mL injection solution RxNorm: 146340 Milliliter(s) Inj 03/31/2016 03/31/2016 Inactive cyanocobalamin (vit B-12) 1,000 mcg/mL injection solution RxNorm: 885901 1 Milliliter(s) Inj 03/15/2016 03/15/2016 Inactive levothyroxine 125 mcg tablet RxNorm: 554266 1 Tablet(s) PO daily 2016 03/03/2016 Inactive levothyroxine 125 mcg tablet RxNorm: 579171 1 Tablet(s) PO daily 2016 05/24/2016 Inactive cyanocobalamin (vit B-12) 1,000 mcg/mL injection solution RxNorm: 001144 Milliliter(s) Inj 02/25/2016 02/25/2016 Inactive cyanocobalamin (vit B-12) 1,000 mcg/mL injection solution RxNorm: 107877 1 Milliliter(s) Inj 02/02/2016 02/02/2016 Inactive sucralfate 1 gram tablet RxNorm: 875752 1 Tablet(s) PO QHS 01/25/2016 No Stop Date Active amiodarone 200 mg tablet RxNorm: 788659 1/2 Tablet(s) PO BID 01/25/2016 No Stop Date Active cyanocobalamin (vit B-12) 1,000 mcg/mL injection solution RxNorm: 004083 Milliliter(s) Inj 01/18/2016 01/18/2016 Inactive cyanocobalamin (vit B-12) 1,000 mcg/mL injection solution RxNorm: 107616 Milliliter(s) Inj 12/29/2015 12/29/2015 Inactive Topamax 25 mg tablet RxNorm: 883643 1 Tablet(s) PO QPM 12/08/2015 04/05/2016 Inactive cyanocobalamin (vit B-12) 1,000 mcg/mL injection solution RxNorm: 447441 Milliliter(s) Inj 12/08/2015 12/08/2015 Inactive Bactrim DS 800 mg-160 mg tablet RxNorm: 184229 1 Tablet(s) PO BID 11/23/2015 11/22/2015 Inactive cyanocobalamin (vit B-12) 1,000 mcg/mL injection solution RxNorm: 426898 Milliliter(s) Inj 11/23/2015 11/23/2015 Inactive Bactrim DS 800 mg-160 mg tablet RxNorm: 097153 1 Tablet(s) PO BID 11/23/2015 11/29/2015 Inactive cyanocobalamin (vit B-12) 1,000 mcg/mL injection solution RxNorm: 646490 Milliliter(s) Inj 11/11/2015 11/11/2015 Inactive amoxicillin 500 mg capsule RxNorm: 029203 1 Capsule(s) PO TID 11/10/2015 11/19/2015 Inactive Zithromax Z-Henrique 250 mg tablet RxNorm: 016833 1 Tablet(s) PO UD 11/10/2015 01/24/2016 Inactive zpack x 1 amoxicillin 500 mg capsule RxNorm: 812204 1 Capsule(s) PO TID 11/10/2015 11/09/2015 Inactive cyanocobalamin (vit B-12) 1,000 mcg/mL injection solution RxNorm: 507415 1 Milliliter(s) Inj 10/29/2015 10/29/2015 Inactive Bud 3 capsule RxNorm: 1 Capsule(s) PO QAM , 2 Capsules at noon, 1 Capsule QHS 10/13/2015 No Stop Date Active potassium chloride ER 20 mEq tablet,extended release RxNorm: 356080 2 Tablet(s) PO daily at noon 10/13/2015 No Stop Date Active alprazolam 0.25 mg tablet RxNorm: 110008 1 Tablet(s) PO QHS 10/13/2015 07/20/2016 Inactive amiodarone 200 mg tablet RxNorm: 048054 1 Tablet(s) PO BID 10/13/2015 01/24/2016 Inactive cyanocobalamin (vit B-12) 1,000 mcg/mL injection solution RxNorm: 564813 1 Milliliter(s) Inj 10/12/2015 10/12/2015 Inactive Zofran 4 mg tablet RxNorm: 857531 1 Tablet(s) PO daily as needed 10/07/2015 05/24/2016 Inactive Zoloft 50 mg tablet RxNorm: 145475 TAKE 1 TABLET BY MOUTH DAILY 10/05/2015 05/01/2016 Inactive Generic For:ZOLOFT 50MG cyanocobalamin (vit B-12) 1,000 mcg/mL injection solution RxNorm: 783302 1 Milliliter(s) Inj 09/29/2015 09/29/2015 Inactive buspirone 15 mg tablet RxNorm: 514166 1 Tablet(s) PO BID 09/17/2015 09/10/2016 Inactive cyanocobalamin (vit B-12) 1,000 mcg/mL injection solution RxNorm: 517280 1 Milliliter(s) Inj 09/17/2015 09/17/2015 Inactive Norvasc 5 mg tablet RxNorm: 820664 1 Tablet(s) PO daily 09/17/2015 07/20/2016 Inactive liothyronine 5 mcg tablet RxNorm: 260751 1 Tablet(s) PO BID 09/17/2015 03/14/2016 Inactive Zoloft 50 mg tablet RxNorm: 659552 1 Tablet(s) PO daily 09/17/2015 10/04/2015 Inactive buspirone 15 mg tablet RxNorm: 214283 1 Tablet(s) PO BID 09/14/2015 09/16/2015 Inactive Topamax 25 mg tablet RxNorm: 093678 1 Tablet(s) PO QPM 09/03/2015 12/07/2015 Inactive cyanocobalamin (vit B-12) 1,000 mcg/mL injection solution RxNorm: 052014 1 Milliliter(s) Inj 09/03/2015 09/03/2015 Inactive cyanocobalamin (vit B-12) 1,000 mcg/mL injection solution RxNorm: 405847 Milliliter(s) Inj 08/17/2015 08/17/2015 Inactive cyanocobalamin (vit B-12) 1,000 mcg/mL injection solution RxNorm: 443436 Milliliter(s) Inj 08/06/2015 08/06/2015 Inactive levothyroxine 150 mcg tablet RxNorm: 333330 1 Tablet(s) PO daily 07/22/2015 03/03/2016 Inactive Aricept 10 mg tablet RxNorm: 365802 1 Tablet(s) PO daily 07/22/2015 05/26/2016 Inactive Mobic 15 mg tablet RxNorm: 278126 1 Tablet(s) PO daily 07/22/2015 05/26/2016 Inactive cyanocobalamin (vit B-12) 1,000 mcg/mL injection solution RxNorm: 332051 Milliliter(s) Inj 07/22/2015 07/22/2015 Inactive liothyronine 5 mcg tablet RxNorm: 957964 1 Tablet(s) PO BID 07/22/2015 09/16/2015 Inactive cyanocobalamin (vit B-12) 1,000 mcg/mL injection solution RxNorm: 655469 Milliliter(s) Inj 07/08/2015 07/08/2015 Inactive cyanocobalamin (vit B-12) 1,000 mcg/mL injection solution RxNorm: 122668 Milliliter(s) Inj 06/23/2015 06/23/2015 Inactive cyanocobalamin (vit B-12) 1,000 mcg/mL injection solution RxNorm: 153667 1 Milliliter(s) Inj 06/08/2015 06/08/2015 Inactive cyanocobalamin (vit B-12) 1,000 mcg/mL injection solution RxNorm: 476264 Milliliter(s) Inj 05/27/2015 05/27/2015 Inactive Aricept 10 mg tablet RxNorm: 149899 1 Tablet(s) PO daily 05/20/2015 07/21/2015 Inactive Zofran 4 mg tablet RxNorm: 772925 1 Tablet(s) PO daily as needed 05/20/2015 06/18/2015 Inactive alprazolam 0.25 mg tablet RxNorm: 043929 1 Tablet(s) PO BID 05/20/2015 10/12/2015 Inactive Mobic 15 mg tablet RxNorm: 616877 1 Tablet(s) PO daily 05/20/2015 07/21/2015 Inactive tramadol ER 100 mg tablet,extended release 24 hr RxNorm: 091784 1 Tablet(s) PO Q6 as needed 05/13/2015 No Stop Date Active cyanocobalamin (vit B-12) 1,000 mcg/mL injection solution RxNorm: 588001 1 Milliliter(s) Inj 05/12/2015 05/12/2015 Inactive Topamax 25 mg tablet RxNorm: 705744 1 Tablet(s) PO BID (start at one pill at bedtime x 1week then twice daily thereafter) 05/12/2015 09/02/2015 Inactive cyanocobalamin (vit B-12) 1,000 mcg/mL injection kit RxNorm: 728658 kit Inj 04/30/2015 04/30/2015 Inactive cyanocobalamin (vit B-12) 1,000 mcg/mL injection solution RxNorm: 493710 Milliliter(s) Inj 04/16/2015 04/16/2015 Inactive levothyroxine 150 mcg tablet RxNorm: 148151 1 Tablet(s) PO daily 04/08/2015 07/21/2015 Inactive cyanocobalamin (vit B-12) 1,000 mcg/mL injection solution RxNorm: 253310 Milliliter(s) 1 Milliliter(s) Inj [id number] 04/08/2015 04/10/2016 Inactive Cytomel 5 mcg tablet RxNorm: 228512 1 Tablet(s) PO BID 04/08/2015 10/12/2015 Inactive Cytomel 5 mcg tablet RxNorm: 071018 1 Tablet(s) PO BID 04/07/2015 04/07/2015 Inactive Cytomel 5 mcg tablet RxNorm: 626865 1 Tablet(s) PO BID 04/07/2015 04/06/2015 Inactive cyanocobalamin (vit B-12) 1,000 mcg/mL injection solution RxNorm: 850897 Milliliter(s) Inj 04/02/2015 04/02/2015 Inactive cyanocobalamin (vit B-12) 1,000 mcg/mL injection solution RxNorm: 637495 Milliliter(s) Inj 03/18/2015 03/18/2015 Inactive cyanocobalamin (vit B-12) 1,000 mcg/mL injection solution RxNorm: 803696 Milliliter(s) 1 Milliliter(s) Inj [id number] 03/18/2015 04/07/2015 Inactive cyanocobalamin (vit B-12) 1,000 mcg/mL injection solution RxNorm: 089317 1 Milliliter(s) Inj [id number] 03/16/2015 03/17/2015 Inactive cyanocobalamin (vit B-12) 1,000 mcg/mL injection solution RxNorm: 877530 Milliliter(s) Inj 03/03/2015 03/03/2015 Inactive cyanocobalamin (vit B-12) 1,000 mcg/mL injection solution RxNorm: 827944 Milliliter(s) Inj 02/18/2015 02/18/2015 Inactive cyanocobalamin (vit B-12) 1,000 mcg/mL injection solution RxNorm: 610249 Milliliter(s) Inj 02/04/2015 02/04/2015 Inactive cyanocobalamin (vit B-12) 1,000 mcg/mL injection solution RxNorm: 321392 Milliliter(s) Inj 01/22/2015 01/22/2015 Inactive Lac-Hydrin Five 5 % lotion RxNorm: 080244 1 TOP daily 01/13/2015 03/13/2015 Inactive Lac-Hydrin Five 5 % lotion RxNorm: 404686 1 TOP daily 01/13/2015 01/12/2015 Inactive cyanocobalamin (vit B-12) 1,000 mcg/mL injection solution RxNorm: 185300 Milliliter(s) Inj 01/08/2015 01/08/2015 Inactive cyanocobalamin (vit B-12) 1,000 mcg/mL injection solution RxNorm: 983466 Milliliter(s) Inj 12/25/2014 12/25/2014 Inactive levothyroxine 150 mcg tablet RxNorm: 711986 1 Tablet(s) PO daily 12/24/2014 04/07/2015 Inactive tramadol 50 mg tablet RxNorm: 537249 1-2 Tablet(s) PO Q6 as needed 12/17/2014 05/12/2015 Inactive alprazolam 0.25 mg tablet RxNorm: 947980 1 Tablet(s) PO BID 12/17/2014 04/15/2015 Inactive Pradaxa 150 mg capsule RxNorm: 2666607 1 Capsule(s) PO BID 12/16/2014 No Stop Date Active metoprolol tartrate 50 mg tablet RxNorm: 227112 1/2 Tablet(s) PO BID 12/16/2014 09/13/2016 Inactive buspirone 15 mg tablet RxNorm: 713082 1 Tablet(s) PO BID 12/16/2014 09/13/2015 Inactive cyanocobalamin (vit B-12) 1,000 mcg/mL injection solution RxNorm: 194836 1 Milliliter(s) Inj D7qsryi 12/16/2014 03/15/2015 Inactive cyanocobalamin (vit B-12) 1,000 mcg/mL injection solution RxNorm: 052292 1 Milliliter(s) Inj B3utadi 12/16/2014 12/15/2014 Inactive sucralfate 1 gram tablet RxNorm: 037556 Tablet(s) PO QID 12/16/2014 12/10/2015 Inactive cyanocobalamin (vit B-12) 1,000 mcg/mL injection solution RxNorm: 954493 Milliliter(s) Inj 12/10/2014 12/10/2014 Inactive cyanocobalamin (vit B-12) 1,000 mcg/mL injection solution RxNorm: 262623 Milliliter(s) Inj 11/26/2014 11/26/2014 Inactive Zoloft 50 mg tablet RxNorm: 479118 1 Tablet(s) PO daily 11/24/2014 06/21/2015 Inactive Zoloft 50 mg tablet RxNorm: 365464 1 Tablet(s) PO daily 11/24/2014 11/23/2014 Inactive cyanocobalamin (vit B-12) 1,000 mcg/mL injection kit RxNorm: 473888 Milliliter(s) Inj 11/12/2014 11/12/2014 Inactive cyanocobalamin (vit B-12) 1,000 mcg/mL injection solution RxNorm: 509106 Milliliter(s) Inj 10/28/2014 10/28/2014 Inactive [SAVINGS FOR NON-COVERED DRUGS -- BIN:[id number], PCN: [id number], Group: [id number], ID# [id number], Questions: . THIS IS NOT INSURANCE.] promethazine oral RxNorm: 8745 oral No Start Date Active digoxin 125 mcg tablet RxNorm: 931615 Tablet(s) PO every other day No Start Date Active furosemide 40 mg tablet RxNorm: 046684 1 Tablet(s) PO daily No Start Date Active Vitamin D3 5,000 unit tablet RxNorm: 197660 1 Tablet(s) PO daily No Start Date Active erythromycin 250 mg capsule,delayed release RxNorm: 565735 1 Capsule(s) PO AC No Start Date Active Protonix 40 mg tablet,delayed release RxNorm: 028901 1 Tablet(s) PO BID No Start Date Active Cozaar 100 mg tablet RxNorm: 475687 1 Tablet(s) PO daily No Start Date 09/13/2016 Inactive sucralfate 1 gram tablet RxNorm: 067294 Tablet(s) PO QID No Start Date 12/15/2014 Inactive amiodarone 200 mg tablet RxNorm: 432595 2 Tablet(s) PO daily No Start Date 10/13/2015 Inactive buspirone 15 mg tablet RxNorm: 060235 1 Tablet(s) PO daily No Start Date 12/15/2014 Inactive potassium chloride ER 20 mEq tablet,extended release RxNorm: 704363 1 Tablet(s) PO daily No Start Date 10/12/2015 Inactive Prilosec 40 mg capsule,delayed release RxNorm: 901152 1 Capsule(s) PO daily No Start Date 09/02/2015 Inactive Bud 3 capsule RxNorm: Capsule(s) PO No Start Date 10/12/2015 Inactive alprazolam 0.25 mg tablet RxNorm: 122314 Tablet(s) PO QHS No Start Date 12/16/2014 Inactive levothyroxine 125 mcg tablet RxNorm: 928994 1 Tablet(s) PO daily No Start Date 12/23/2014 Inactive liothyronine 5 mcg tablet RxNorm: 274127 1 Tablet(s) PO BID No Start Date 07/21/2015 Inactive Mobic 15 mg tablet RxNorm: 532264 Tablet(s) PO daily No Start Date 05/19/2015 Inactive Norvasc 5 mg tablet RxNorm: 484489 1 Tablet(s) PO daily No Start Date 09/16/2015 Inactive Zofran 4 mg tablet RxNorm: 130926 1 Tablet(s) PO daily as needed No Start Date 05/19/2015 Inactive tramadol 50 mg tablet RxNorm: 064269 1 Tablet(s) PO daily as needed No Start Date 12/16/2014 Inactive amiodarone 200 mg tablet RxNorm: 219312 1 Tablet(s) PO daily No Start Date 10/12/2015 Inactive meclizine 25 mg tablet RxNorm: 782462 Tablet(s) PO as needed No Start Date 05/24/2016 Inactive Pradaxa 150 mg capsule RxNorm: 6503565 1 Capsule(s) PO daily No Start Date 12/15/2014 Inactive metoprolol tartrate 50 mg tablet RxNorm: 542128 1/2 Tablet(s) PO No Start Date 12/15/2014 Inactive Aricept 10 mg tablet RxNorm: 671102 Tablet(s) PO daily No Start Date 05/19/2015 Inactive Calmoseptine 0.44 %-20.6 % topical ointment RxNorm: 193348 1 Application TOP BID and as needed to sore on buttocks No Start Date 09/06/2016 Inactive Zithromax Z-Henrique 250 mg tablet RxNorm: 608422 1 Tablet(s) PO UD No Start Date 11/09/2015 Inactive zpack x 1 Medication Administered Medication Codes Instructions Start Date Status cyanocobalamin (vit B-12) 1,000 mcg/mL injection solution RxNorm: 094193 Milliliter 11/24/2016 No longer Active cyanocobalamin (vit B-12) 1,000 mcg/mL injection solution RxNorm: 154711 1Milliliter 11/07/2016 No longer Active cyanocobalamin (vit B-12) 1,000 mcg/mL injection solution RxNorm: 215920 Milliliter 10/24/2016 No longer Active cyanocobalamin (vit B-12) 1,000 mcg/mL injection solution RxNorm: 231445 1Milliliter 09/29/2016 No longer Active cyanocobalamin (vit B-12) 1,000 mcg/mL injection solution RxNorm: 555970 Milliliter 08/29/2016 No longer Active cyanocobalamin (vit B-12) 1,000 mcg/mL injection solution RxNorm: 611048 Milliliter 08/04/2016 No longer Active cyanocobalamin (vit B-12) 1,000 mcg/mL injection solution RxNorm: 733421 Milliliter 07/21/2016 No longer Active cyanocobalamin (vit B-12) 1,000 mcg/mL injection solution RxNorm: 804507 1Milliliter 07/05/2016 No longer Active cyanocobalamin (vit B-12) 1,000 mcg/mL injection solution RxNorm: 306388 1Milliliter 06/22/2016 No longer Active cyanocobalamin (vit B-12) 1,000 mcg/mL injection solution RxNorm: 023566 Milliliter 06/09/2016 No longer Active cyanocobalamin (vit B-12) 1,000 mcg/mL injection solution RxNorm: 519301 1Milliliter 05/25/2016 No longer Active cyanocobalamin (vit B-12) 1,000 mcg/mL injection solution RxNorm: 727109 Milliliter 05/10/2016 No longer Active cyanocobalamin (vit B-12) 1,000 mcg/mL injection solution RxNorm: 601198 Milliliter 04/26/2016 No longer Active cyanocobalamin (vit B-12) 1,000 mcg/mL injection solution RxNorm: 102614 Milliliter 04/11/2016 No longer Active cyanocobalamin (vit B-12) 1,000 mcg/mL injection solution RxNorm: 027901 Milliliter 03/31/2016 No longer Active cyanocobalamin (vit B-12) 1,000 mcg/mL injection solution RxNorm: 030593 1Milliliter 03/15/2016 No longer Active cyanocobalamin (vit B-12) 1,000 mcg/mL injection solution RxNorm: 905859 Milliliter 02/25/2016 No longer Active cyanocobalamin (vit B-12) 1,000 mcg/mL injection solution RxNorm: 874210 1Milliliter 02/02/2016 No longer Active cyanocobalamin (vit B-12) 1,000 mcg/mL injection solution RxNorm: 742830 Milliliter 01/18/2016 No longer Active cyanocobalamin (vit B-12) 1,000 mcg/mL injection solution RxNorm: 588170 Milliliter 12/29/2015 No longer Active cyanocobalamin (vit B-12) 1,000 mcg/mL injection solution RxNorm: 523422 Milliliter 12/08/2015 No longer Active cyanocobalamin (vit B-12) 1,000 mcg/mL injection solution RxNorm: 877248 Milliliter 11/23/2015 No longer Active cyanocobalamin (vit B-12) 1,000 mcg/mL injection solution RxNorm: 215895 Milliliter 11/11/2015 No longer Active cyanocobalamin (vit B-12) 1,000 mcg/mL injection solution RxNorm: 102196 1Milliliter 10/29/2015 No longer Active cyanocobalamin (vit B-12) 1,000 mcg/mL injection solution RxNorm: 179331 1Milliliter 10/12/2015 No longer Active cyanocobalamin (vit B-12) 1,000 mcg/mL injection solution RxNorm: 678200 1Milliliter 09/29/2015 No longer Active cyanocobalamin (vit B-12) 1,000 mcg/mL injection solution RxNorm: 028943 1Milliliter 09/17/2015 No longer Active cyanocobalamin (vit B-12) 1,000 mcg/mL injection solution RxNorm: 010546 1Milliliter 09/03/2015 No longer Active cyanocobalamin (vit B-12) 1,000 mcg/mL injection solution RxNorm: 148309 Milliliter 08/17/2015 No longer Active cyanocobalamin (vit B-12) 1,000 mcg/mL injection solution RxNorm: 915539 Milliliter 08/06/2015 No longer Active cyanocobalamin (vit B-12) 1,000 mcg/mL injection solution RxNorm: 261203 Milliliter 07/22/2015 No longer Active cyanocobalamin (vit B-12) 1,000 mcg/mL injection solution RxNorm: 476543 Milliliter 07/08/2015 No longer Active cyanocobalamin (vit B-12) 1,000 mcg/mL injection solution RxNorm: 247375 Milliliter 06/23/2015 No longer Active cyanocobalamin (vit B-12) 1,000 mcg/mL injection solution RxNorm: 509358 1Milliliter 06/08/2015 No longer Active cyanocobalamin (vit B-12) 1,000 mcg/mL injection solution RxNorm: 926069 Milliliter 05/27/2015 No longer Active cyanocobalamin (vit B-12) 1,000 mcg/mL injection solution RxNorm: 486499 1Milliliter 05/12/2015 No longer Active cyanocobalamin (vit B-12) 1,000 mcg/mL injection kit RxNorm: 939720 kit 04/30/2015 No longer Active cyanocobalamin (vit B-12) 1,000 mcg/mL injection solution RxNorm: 498715 Milliliter 04/16/2015 No longer Active cyanocobalamin (vit B-12) 1,000 mcg/mL injection solution RxNorm: 103999 Milliliter 04/02/2015 No longer Active cyanocobalamin (vit B-12) 1,000 mcg/mL injection solution RxNorm: 329362 Milliliter 03/18/2015 No longer Active cyanocobalamin (vit B-12) 1,000 mcg/mL injection solution RxNorm: 050010 Milliliter 03/03/2015 No longer Active cyanocobalamin (vit B-12) 1,000 mcg/mL injection solution RxNorm: 827622 [facility] 02/18/2015 No longer Active cyanocobalamin (vit B-12) 1,000 mcg/mL injection solution RxNorm: 911187 [facility] 02/04/2015 No longer Active cyanocobalamin (vit B-12) 1,000 mcg/mL injection solution RxNorm: 829545 [facility] 01/22/2015 No longer Active cyanocobalamin (vit B-12) 1,000 mcg/mL injection solution RxNorm: 555218 [facility] 01/08/2015 No longer Active cyanocobalamin (vit B-12) 1,000 mcg/mL injection solution RxNorm: 971436 [facility] 12/25/2014 No longer Active cyanocobalamin (vit B-12) 1,000 mcg/mL injection solution RxNorm: 386182 Milliliter 12/10/2014 No longer Active cyanocobalamin (vit B-12) 1,000 mcg/mL injection solution RxNorm: 183508 Milliliter 11/26/2014 No longer Active cyanocobalamin (vit B-12) 1,000 mcg/mL injection kit RxNorm: 481813 Milliliter 11/12/2014 No longer Active cyanocobalamin (vit B-12) 1,000 mcg/mL injection solution RxNorm: 113889 Milliliter 10/28/2014 No longer Active Immunizations Vaccine [...] Item Item Code Result Date Culture Urine [id number] URINE CULTURE SEE NOTES 11/10/2016 Culture Urine [id number] Continued Results 11/10/2016 Urine Culture Ucult Complete [...] 09/29/2016 Metabolic Ord15 CALCIUM 9.3 mg/dL 09/29/2016 Tsh Ord6 hTSH II 1.41 uIU/mL 09/07/2016 Cbc With Differential Ord2 WBC 6.40 [...] 30.0 pg 09/07/2016 Cbc With Differential Ord2 [place]% 9.8 % 09/07/2016 Cbc With Differential Ord2 [...] 1.75 K/ul 09/07/2016 Cbc With Differential Ord2 [place] ABS# 0.6 K/ul 09/07/2016 Cbc With Differential Ord2 Eos ABS# 0.1 K/ul 09/07/2016 Cbc With Differential Ord2 Baso ABS# 0.0 K/ul 09/07/2016 Free T4 Sjo610 FREE T4 0.99 ng/dL 09/07/2016 Culture Urine [id number] URINE CULTURE SEE NOTES 06/27/2016 Hepatic Pif481 ALBUMIN 4.2 g/dL 06/22/2016 Hepatic Btr159 TPRO 7.0 g/dL 06/22/2016 Hepatic Hgo207 GLOB 2.8 g/dL 06/22/2016 Hepatic Hzd596 A/G Ratio 1.5 Ratio 06/22/2016 Hepatic Shi572 ALK PHOS 54 U/L 06/22/2016 Hepatic Iuq169 ALT(SGPT) 30 U/L 06/22/2016 Hepatic Omw617 AST(SGOT) 24 U/L 06/22/2016 Hepatic Sdt649 BILI T 1.1 mg/dL 06/22/2016 Hepatic Pgt318 BILI D 0.2 mg/dL 06/22/2016 Hepatic Fpl382 BILI I 0.9 mg/dL 06/22/2016 Lipid Ord30 CHOL 196 mg/dL 06/22/2016 Lipid Ord30 HDL 63.0 mg/dl 06/22/2016 Lipid Ord30 TRIG 154 mg/dL 06/22/2016 Lipid Ord30 LDL 102 mg/dL 06/22/2016 Lipid Ord30 C/HDL 3.1 Ratio 06/22/2016 Free T4 Hgz667 FREE T4 1.09 ng/dL 06/14/2016 Tsh Ord6 hTSH II 1.26 uIU/mL 06/14/2016 Comp Metabolic Bta806 NA 139 mEq/L 06/14/2016 Comp Metabolic Des627 K 4.6 mEq/L 06/14/2016 Comp Metabolic Vsn684 CL 108 mEq/L 06/14/2016 Comp Metabolic Vtn766 CO2 22.0 mEq/L 06/14/2016 Comp Metabolic Dys483 ANION GAP 14 06/14/2016 Comp Metabolic Psi466 GLUCOSE 114 mg/dL 06/14/2016 Comp Metabolic Bpb617 Creat 1.2 mg/dL 06/14/2016 Comp Metabolic Iyq212 eGFR 48 ml/min/1.73m2 06/14/2016 Comp Metabolic Hwo195 BUN 24 mg/dL 06/14/2016 Comp Metabolic Hjb253 B/C Ratio 20.9 Ratio 06/14/2016 Comp Metabolic Vhc699 CALCIUM 9.9 mg/dL 06/14/2016 Comp Metabolic Ruo711 ALK PHOS 47 U/L 06/14/2016 Comp Metabolic Tlr133 AST(SGOT) 28 U/L 06/14/2016 Comp Metabolic Qjh248 ALT(SGPT) 32 U/L 06/14/2016 Comp Metabolic Dyd425 BILI T 0.9 mg/dL 06/14/2016 Comp Metabolic Niz535 ALBUMIN 4.1 g/dL 06/14/2016 Comp Metabolic Mut786 TPRO 6.9 g/dL 06/14/2016 Comp Metabolic Wza836 GLOB 2.8 g/dL 06/14/2016 Comp Metabolic Lwg955 A/G Ratio 1.5 Ratio 06/14/2016 Comp Metabolic Imt903 Osmo 282 mOsmo 06/14/2016 Tsh Ord6 hTSH II 0.28 uIU/mL 02/02/2016 Free T4 Pfj569 FREE T4 1.23 ng/dL 02/02/2016 Hepatic Qyj484 ALBUMIN 4.0 g/dL 02/02/2016 Hepatic Fjl358 TPRO 7.0 g/dL 02/02/2016 Hepatic Lpv422 GLOB 3.0 g/dL 02/02/2016 Hepatic Ybg457 A/G Ratio 1.3 Ratio 02/02/2016 Hepatic Thm118 ALK PHOS 57 U/L 02/02/2016 Hepatic Ygj647 ALT(SGPT) 62 U/L 02/02/2016 Hepatic Vgy671 AST(SGOT) 54 U/L 02/02/2016 Hepatic Vox123 BILI T 0.8 mg/dL 02/02/2016 Hepatic Mhu147 BILI D 0.2 mg/dL 02/02/2016 Hepatic Fxi468 BILI I 0.6 mg/dL 02/02/2016 Digoxin Ord9 DIGOXIN 0.7 NG/ML 02/02/2016 Urine Culture Ucult Complete No Growth Day 2 11/25/2015 Urine Culture Ucult Preliminary No Growth Day 1 11/25/2015 Hepatic Jji051 ALBUMIN 3.9 g/dL 11/11/2015 Hepatic Fis640 TPRO 7.0 g/dL 11/11/2015 Hepatic Fnk267 GLOB 3.1 g/dL 11/11/2015 Hepatic Vlv141 A/G Ratio 1.3 Ratio 11/11/2015 Hepatic Vqg382 ALK PHOS 63 U/L 11/11/2015 Hepatic Vue987 ALT(SGPT) 107 U/L 11/11/2015 Hepatic Ghp562 AST(SGOT) 101 U/L 11/11/2015 Hepatic Izj260 BILI T 0.6 mg/dL 11/11/2015 Hepatic Irm303 BILI D 0.1 mg/dL 11/11/2015 Hepatic Zri837 BILI I 0.5 mg/dL 11/11/2015 Comp Metabolic Auh631 NA 138 mEq/L 10/29/2015 Comp Metabolic Lum926 K 5.0 mEq/L 10/29/2015 Comp Metabolic Slk927 CL 105 mEq/L 10/29/2015 Comp Metabolic Sqq340 CO2 23.0 mEq/L 10/29/2015 Comp Metabolic Lxv940 ANION GAP 15 10/29/2015 Comp Metabolic Oxe697 GLUCOSE 105 mg/dL 10/29/2015 Comp Metabolic Hnm559 Creat 1.0 mg/dL 10/29/2015 Comp Metabolic Unc317 eGFR 55 ml/min/1.73m2 10/29/2015 Comp Metabolic Xki871 BUN 20 mg/dL 10/29/2015 Comp Metabolic Wvj442 B/C Ratio 19.4 Ratio 10/29/2015 Comp Metabolic Vgs829 CALCIUM 8.8 mg/dL 10/29/2015 Comp Metabolic Ucc132 ALK PHOS 56 U/L 10/29/2015 Comp Metabolic Afy865 AST(SGOT) 66 U/L 10/29/2015 Comp Metabolic Vaz363 ALT(SGPT) 78 U/L 10/29/2015 Comp Metabolic Zhq608 BILI T 0.7 mg/dL 10/29/2015 Comp Metabolic Stt335 ALBUMIN 3.6 g/dL 10/29/2015 Comp Metabolic Jzq260 TPRO 6.6 g/dL 10/29/2015 Comp Metabolic Qwl205 GLOB 3.0 g/dL 10/29/2015 Comp Metabolic Sbz093 A/G Ratio 1.2 Ratio 10/29/2015 Comp Metabolic Jrc272 Osmo 279 mOsmo 10/29/2015 Comp Metabolic Otf214 NA 136 mEq/L 09/03/2015 Comp Metabolic Cps552 K 4.4 mEq/L 09/03/2015 Comp Metabolic Ktu123 CL 103 mEq/L 09/03/2015 Comp Metabolic Slo684 CO2 24.0 mEq/L 09/03/2015 Comp Metabolic Our127 ANION GAP 13 09/03/2015 Comp Metabolic Sbv335 GLUCOSE 87 mg/dL 09/03/2015 Comp Metabolic Jdg340 Creat 1.1 mg/dL 09/03/2015 Comp Metabolic Cfr186 eGFR 53 ml/min/1.73m2 09/03/2015 Comp Metabolic Pmr443 BUN 17 mg/dL 09/03/2015 Comp Metabolic Acx493 B/C Ratio 16.2 Ratio 09/03/2015 Comp Metabolic Pak770 CALCIUM 9.0 mg/dL 09/03/2015 Comp Metabolic Chb695 ALK PHOS 55 U/L 09/03/2015 Comp Metabolic Oeb264 AST(SGOT) 83 U/L 09/03/2015 Comp Metabolic Eqx612 ALT(SGPT) 126 U/L 09/03/2015 Comp Metabolic Oht452 BILI T 0.9 mg/dL 09/03/2015 Comp Metabolic Qqq110 ALBUMIN 3.9 g/dL 09/03/2015 Comp Metabolic Lqm333 TPRO 6.8 g/dL 09/03/2015 Comp Metabolic Soe809 GLOB 2.9 g/dL 09/03/2015 Comp Metabolic Hkx350 A/G Ratio 1.4 Ratio 09/03/2015 Comp Metabolic Dxf563 Osmo 273 mOsmo 09/03/2015 Tsh Ord6 hTSH II 1.62 uIU/mL 07/09/2015 Total T3 Ord42 TT3 0.6 ng/ml 07/09/2015 Total T3 Ord42 TT3 0.5 ng/ml 04/02/2015 Free T4 Avq763 FREE T4 1.23 ng/dL 04/02/2015 Tsh Ord6 [...] Procedure Codes Date THER/PROPH/DIAG INJ SC/IM CPT-4: 72743Xsxqkos 11/24/2016 URINALYSIS NONAUTO W/O SCOPE CPT-4: 35621Toohbjh 11/07/2016 THER/PROPH/DIAG INJ SC/IM CPT-4: 07415Wdssqvg 11/07/2016 THER/PROPH/DIAG INJ SC/IM CPT-4: 80980Gkvzzlb 10/24/2016 THER/PROPH/DIAG INJ SC/IM CPT-4: 03102Xmmvtxn 09/29/2016 THER/PROPH/DIAG INJ SC/IM CPT-4: 10648Lewweaz 08/29/2016 THER/PROPH/DIAG INJ SC/IM CPT-4: 64156Ygehmpu 08/04/2016 THER/PROPH/DIAG INJ SC/IM CPT-4: 15322Oycaxgs 07/21/2016 THER/PROPH/DIAG INJ SC/IM CPT-4: 87817Zynxwie 07/05/2016 THER/PROPH/DIAG INJ SC/IM CPT-4: 32262Gqyckqd 06/22/2016 URINALYSIS NONAUTO W/O SCOPE CPT-4: 84371Qdjyzvq 06/22/2016 THER/PROPH/DIAG INJ SC/IM CPT-4: 53274Bqcicrq 06/09/2016 PPPS, SUBSEQ VISIT CPT-4: X1771Nxyrttl 05/30/2016 ADMIN PNEUMOCOCCAL VACCINE SNOMED CT: 33331038 CPT-4: A6621Ziypipe 05/25/2016 Pneumococcal Polysaccharide Vaccine, 23-Valent, Ad CPT-4: 10664Tgdvjrw 05/25/2016 THER/PROPH/DIAG INJ SC/IM CPT-4: 23406Zlimddf 05/25/2016 THER/PROPH/DIAG INJ SC/IM CPT-4: 84566Ailleek 05/10/2016 TRIAMCINOLONE ACET INJ NOS CPT-4: H2212Ofccjtj 04/26/2016 VITAMIN B12 INJECTION CPT-4: X2744Mkjrqbl 04/26/2016 THER/PROPH/DIAG INJ SC/IM CPT-4: 32687Neylvlr 04/11/2016 THER/PROPH/DIAG INJ SC/IM CPT-4: 29013Vhqvhza 03/31/2016 ADMIN INFLUENZA VIRUS VAC CPT-4: O5128Vbkupfy 03/15/2016 FLU VACC 4 STEPHANIE 3 YRS PLUS IM SNOMED CT: 57303527 CPT-4: 95064Rytoevw 03/15/2016 THER/PROPH/DIAG INJ SC/IM CPT-4: 92559Tnzxged 02/25/2016 THER/PROPH/DIAG INJ SC/IM CPT-4: 60478Rgfnuxv 02/02/2016 THER/PROPH/DIAG INJ SC/IM CPT-4: 80998Ztltqen 01/18/2016 VITAMIN B12 INJECTION CPT-4: Z9392Tkfofns 12/29/2015 THER/PROPH/DIAG INJ SC/IM CPT-4: 18565Kampipm 12/29/2015 THER/PROPH/DIAG INJ SC/IM CPT-4: 91090Lkfaoat 12/08/2015 THER/PROPH/DIAG INJ SC/IM CPT-4: 40111Mzmajwy 11/23/2015 URINALYSIS NONAUTO W/O SCOPE CPT-4: 40097Hwtoviq 11/23/2015 THER/PROPH/DIAG INJ SC/IM CPT-4: 89528Dgyzfbg 11/11/2015 THER/PROPH/DIAG INJ SC/IM CPT-4: 53937Evqexpl 10/29/2015 THER/PROPH/DIAG INJ SC/IM CPT-4: 62670Ctnucit 10/12/2015 VITAMIN B12 INJECTION CPT-4: T8273Lyqbelt 10/12/2015 THER/PROPH/DIAG INJ SC/IM CPT-4: 06019Dmaylmv 09/29/2015 THER/PROPH/DIAG INJ SC/IM CPT-4: 49845Gzpefuc 09/17/2015 THER/PROPH/DIAG INJ SC/IM CPT-4: 89477Xjidrsr 09/03/2015 THER/PROPH/DIAG INJ SC/IM CPT-4: 32763Xmzwhuz 08/17/2015 THER/PROPH/DIAG INJ SC/IM CPT-4: 86159Ezaqygc 08/06/2015 THER/PROPH/DIAG INJ SC/IM CPT-4: 03948Goqxzaw 07/22/2015 THER/PROPH/DIAG INJ SC/IM CPT-4: 63196Xqghqzr 07/08/2015 THER/PROPH/DIAG INJ SC/IM CPT-4: 19051Wbueavn 06/23/2015 THER/PROPH/DIAG INJ SC/IM CPT-4: 87497Vpyrdtp 06/08/2015 THER/PROPH/DIAG INJ SC/IM CPT-4: 39190Kbardvx 05/27/2015 DESTRUCT PREMALG LESION CPT-4: 91215Iicgvjg 05/19/2015 DESTRUCT PREMALG LES 2-14 CPT-4: 85630Nuohfnr 05/19/2015 THER/PROPH/DIAG INJ SC/IM CPT-4: 88607Xaepkbb 05/12/2015 VITAMIN B12 INJECTION CPT-4: W4010Rvjsuum 05/12/2015 THER/PROPH/DIAG INJ SC/IM CPT-4: 25702Qlfkumq 04/30/2015 VITAMIN B12 INJECTION CPT-4: I7707Wunidti 04/30/2015 THER/PROPH/DIAG INJ SC/IM CPT-4: 07137Omtfkhz 04/16/2015 THER/PROPH/DIAG INJ SC/IM CPT-4: 10297Imzaaze 04/02/2015 VITAMIN B12 INJECTION CPT-4: W9329Jfsapnw 04/02/2015 THER/PROPH/DIAG INJ SC/IM CPT-4: 09739Dgshcry 03/18/2015 THER/PROPH/DIAG INJ SC/IM CPT-4: 10366Ebcrxnw 03/03/2015 THER/PROPH/DIAG INJ SC/IM CPT-4: 21039Yztnslj 02/18/2015 THER/PROPH/DIAG INJ SC/IM CPT-4: 62044Yvemeih 02/04/2015 VITAMIN B12 INJECTION CPT-4: G3353Wzhyofm 02/04/2015 THER/PROPH/DIAG INJ SC/IM CPT-4: 27289Vcdxhex 01/22/2015 THER/PROPH/DIAG INJ SC/IM CPT-4: 44076Gdmocii 01/08/2015 VITAMIN B12 INJECTION CPT-4: C1381Pqapirc 01/08/2015 THER/PROPH/DIAG INJ SC/IM CPT-4: 05056Grulbfk 12/25/2014 VITAMIN B12 INJECTION CPT-4: T6542Bgrafph 12/25/2014 THER/PROPH/DIAG INJ SC/IM CPT-4: 29751Rwufjkm 12/10/2014 VITAMIN B12 INJECTION CPT-4: X7356Wbruevp 12/10/2014 THER/PROPH/DIAG INJ SC/IM CPT-4: 29650Hylervc 11/26/2014 VITAMIN B12 INJECTION CPT-4: H7376Xtzaqaq 11/26/2014 THER/PROPH/DIAG INJ SC/IM CPT-4: 42560Mkcyycr 11/12/2014 VITAMIN B12 INJECTION CPT-4: F4333Rihdokj 11/12/2014 THER/PROPH/DIAG INJ SC/IM CPT-4: 05429Srlxdta 10/28/2014 Vital Signs Date Vital 11/02/2016 Blood Pressure 1: 148/78 Code: 8480-6 BMI: 29.7 Code: 23266-7 Heart Rate 1: 87 bpm Height: 5'6" SpO2: 97% Weight: 184 lbs 09/29/2016 Blood Pressure 1: 128/78 Code: 8480-6 BMI: 29.7 Code: 46882-1 Heart Rate 1: 78 bpm Height: 5'6" SpO2: 98% Weight: 184 lbs 07/26/2016 Blood Pressure 1: 138/72 Code: 8480-6 BMI: 30.0 Code: 72513-5 Heart Rate 1: 85 bpm Height: 5'6" SpO2: 97% Weight: 186 lbs 05/30/2016 Blood Pressure 1: 132/76 Code: 8480-6 BMI: 30.0 Code: 65813-0 Heart Rate 1: 80 bpm Height: 5'6" SpO2: 98% Waist Measure (cm): 99 cm Weight: 186 lbs 05/25/2016 Blood Pressure 1: 13276 Code: 8480-6 BMI: 30.0 Code: 39815-9 Heart Rate 1: 80 bpm Height: 5'6" SpO2: 96% Weight: 186 lbs 02/25/2016 Blood Pressure 1: 110/64 Code: 8480-6 Heart Rate 1: 82 bpm Height: SpO2: 96% Weight: 01/25/2016 Blood Pressure 1: 118/70 Code: 8480-6 BMI: 30.0 Code: 76514-4 Heart Rate 1: 78 bpm Height: 5'6" SpO2: 97% Weight: 186 lbs 11/11/2015 Blood Pressure 1: 128/82 Code: 8480-6 BMI: 29.2 Code: 63997-9 Heart Rate 1: 86 bpm Height: 5'6" SpO2: 96% Temperature: 36.4 (C) / 97.6 (F) Weight: 181 lbs 10/12/2015 Blood Pressure 1: 118/70 Code: 8480-6 BMI: 29.2 Code: 73001-7 Heart Rate 1: 81 bpm Height: 5'6" SpO2: 95% Weight: 181 lbs 09/03/2015 Blood Pressure 1: 138/78 Code: 8480-6 BMI: 29.9 Code: 02647-0 Heart Rate 1: 88 bpm Height: 5'6" SpO2: 97% Weight: 185 lbs 05/19/2015 Blood Pressure 1: 146/78 Code: 8480-6 BMI: 30.0 Code: 75508-5 Heart Rate 1: 66 bpm Height: 5'6" SpO2: 97% Weight: 186 lbs 05/12/2015 Blood Pressure 1: 120/70 Code: 8480-6 BMI: 29.9 Code: 72898-8 Heart Rate 1: 89 bpm Height: 5'6" SpO2: 95% Weight: 185 lbs 01/13/2015 Blood Pressure 1: 140/90 Code: 8480-6 BMI: 30.3 Code: 02545-1 Heart Rate 1: 84 bpm Height: 5'6" SpO2: 95% Weight: 188 lbs 12/16/2014 Blood Pressure 1: 140/82 Code: 8480-6 BMI: 29.5 Code: 68307-2 Heart Rate 1: 86 bpm Height: 5'6" [...] in thoracic spine[ICD10: M54.6] Brianna Vega MD, [facility] CPT- 4: 85121 11/02/2016 ([id number]) 87448 EST. PATIENT, LEVEL IV Diagnosis: Essential (primary) hypertension[ICD10: I10] Diagnosis: Other vitamin B12 deficiency anemias[ICD10: D51.8] Diagnosis: Generalized abdominal pain[ICD10: R10.84] [facility] CPT-4: 69831 09/29/2016 ([id number]) 65694 EST. PATIENT, LEVEL IV Diagnosis: Essential (primary) hypertension[ICD10: I10] [facility] CPT-4: 38050 07/26/2016 ([id number]) 90697 EST. PATIENT, LEVEL IV Diagnosis: Benign lipomatous neoplasm of skin and subcutaneous tissue of right leg[ICD10: D17.23] Diagnosis: Pain in right ankle and joints of right foot[ICD10: M25.571] Diagnosis: Encounter for immunization[ICD10: Z23] Diagnosis: Vitamin B12 deficiency anemia, unspecified[ICD10: D51.9] Yaerly Vega MD, [facility] CPT-4: 65681 05/25/2016 59917 EST. PATIENT, LEVEL III Diagnosis: Other chest pain[ICD10: R07.89] Diagnosis: Other vitamin B12 deficiency anemias[ICD10: D51.8] [facility] CPT-4: 52580 02/25/2016 ([id number]) 15275 EST. 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 PATIENT, LEVEL III Diagnosis: Other vitamin B12 deficiency anemias[ICD10: D51.8] Diagnosis: Acute nasopharyngitis [common cold][ICD10: J00] Diagnosis: Other allergic rhinitis[ICD10: J30.89] Brianna Vega MD, [facility] CPT- 4: 16387 11/11/2015 ([id number]) 63363 EST. PATIENT, LEVEL IV Diagnosis: Essential tremor[ICD10: G25.0] Diagnosis: Chronic fatigue, unspecified[ICD10: R53.82] Diagnosis: Other hypersomnia[ICD10: G47.19] Diagnosis: Essential (primary) hypertension[ICD10: I10] Yarely Vega MD, [facility] CPT-4: 15587 10/12/2015 ([id number]) 87145 EST. PATIENT, LEVEL IV Diagnosis: Essential (primary) hypertension[ICD10: I10] Diagnosis: Chronic atrial fibrillation[ICD10: I48.2] Diagnosis: Abnormal levels of other serum enzymes[ICD10: R74.8] Diagnosis: Type 2 diabetes mellitus without complications[ICD10: E11.9] Diagnosis: Vitamin B12 deficiency anemia, unspecified[ICD10: D51.9] Yarely Vega MD, [facility] CPT-4: 35926 09/03/2015 ([id number]) 20204 EST. PATIENT, LEVEL III Diagnosis: Nausea[ICD10: R11.0] Diagnosis: Essential tremor[ICD10: G25.0] Diagnosis: Actinic keratosis[ICD10: L57.0] Yarely Vega MD, [facility] CPT-4: 93032 05/19/2015 ([id number]) 86269 EST. PATIENT, LEVEL IV Diagnosis: Vitamin B12 deficiency anemia, unspecified[ICD10: D51.9] Diagnosis: Chronic atrial fibrillation[ICD10: I48.2] Diagnosis: Headache[ICD10: R51] Diagnosis: Chronic fatigue, unspecified[ICD10: R53.82] Diagnosis: Cervicalgia[ICD10: M54.2] Yarely Vega MD, [facility] CPT-4: 67010 05/12/2015 ([id number]) 59644 EST. PATIENT, LEVEL IV Diagnosis: ESSENTIAL HYPERTENSION[ICD9: 401.9] Diagnosis: Afib[ICD9: 427.31] Diagnosis: Anxiety[ICD9: 300.00] Diagnosis: Insomnia[ICD9: 780.52] [facility] CPT-4: 88666 01/13/2015 ([id number]) OFFICE VISIT, NEW - LEVEL 4 Diagnosis: Hypothyroidism[ICD9: 244.9] Diagnosis: DIABETES TYPE II[ICD9: 250.00] Diagnosis: ESSENTIAL HYPERTENSION[ICD9: 401.9] Diagnosis: Afib[ICD9: 427.31] Diagnosis: Anxiety[ICD9: 300.00] Diagnosis: B12 deficiency[ICD9: 266.2] [facility] CPT-4: 19522 12/16/2014 Plan of Care Planned Activity Notes Codes Status Date Appointment: Injection 11/24/2016 Patient Education: Patient Medication Summary Completed 11/24/2016 Appointment: Injection 11/07/2016 Patient Education: Patient Medication Summary Completed 11/07/2016 Appointment: Bri[facility] Otoole [facility]el[facility] [place] (15 min) Moderate 11/02/2016 Patient Education: Patient Medication Summary Completed 11/02/2016 Appointment: Injection 10/24/2016 Patient Education: Patient Medication Summary Completed 10/24/2016 Appointment: [facility]ega [facility]el[facility] [place] (15 min) Moderate 09/29/2016 Patient Education: Patient Medication Summary Completed 09/29/2016 Appointment: Yarely Vega WPtel[facility] [place] (15 min) Moderate 09/27/2016 Appointment: Yarely [facility]ega WPtel[facility] [place] (15 min) Moderate 09/20/2016 Appointment: Yarely Vega WPtel: [facility] [place] (15 min) Moderate 09/20/2016 Patient Education: Patient Medication Summary Completed 09/06/2016 Appointment: [facility]ega [facility]Ptel[facility] [phone] [facility] (15 min) Moderate 08/30/2016 Appointment: Injection 08/29/2016 Patient Education: Patient Medication Summary Completed 08/29/2016 Appointment: Injection 08/04/2016 Patient Education: Patient Medication Summary Completed 08/04/2016 Appointment: Yarely Vega WPtel[facility] (15 min) Moderate 07/26/2016 Patient [...] Summary Completed 06/09/2016 Appointment: Brianna Otoole WPtel[facility] MCR - Annual Wellness Visit 05/30/2016 Patient Education: Patient Medication Summary Completed 05/30/2016 Patient Education: Obesity Completed 05/30/2016 Appointment: Yraely Vega WPtel: [facility] (15 min) Moderate 05/25/2016 Patient Education: Patient Medication Summary Completed 05/25/2016 Patient Education: Obesity Completed 05/25/2016 Care Plan: Referral Order SNOMED-CT : [id number] Pending 05/25/2016 Appointment: Injection 05/10/2016 Patient Education: Patient Medication Summary Completed 05/10/2016 Appointment: Injection 04/26/2016 Patient Education: Patient Medication Summary Completed 04/26/2016 Appointment: Injection 04/11/2016 Patient Education: Patient Medication Summary Completed 04/11/2016 Appointment: Injection 03/31/2016 Patient Education: Patient Medication Summary Completed 03/31/2016 Patient Education: Patient Medication Summary Completed 03/22/2016 Care Plan[facility] Pending 03/22/2016 Appointment: Injection 03/15/2016 Patient Education: Patient Medication Summary Completed 03/15/2016 App[facility]ment: [facility] [phone] [facility] (15 min) Moderate 02/25/2016 Patient Education: [...] Completed 10/29/2015 Appointment: [facility] [phone] [facility] (15 min) Moderate 10/12/2015 Patient [...] Completed 08/17/2015 Appointment: [facility] [phone] [facility] (15 min) Moderate 08/11/2015 Appointment: [...] Summary Completed 05/27/2015 Appointment: Yarely Vega WPtel: [facility] (30 min) [facility] 05/19/2015 Patient Education: Patient Medication Summary Completed [...] Summary Completed 01/22/2015 Appointment: Yarely Vega WPtel: [facility] (15 min) Moderate 01/13/2015 Patient Education: Patient Medication Summary Completed 01/13/2015 Patient Education: Hypertension Completed 01/13/2015 Appointment: Injection 01/08/2015 Patient Education: Patient Medication Summary Completed 01/08/2015 Appointment: Injection 12/25/2014 Patient Education: Patient Medication Summary Completed 12/25/2014 Appointment: Janet Fam WPtel: [facility] [place] ([place] New Patient 12/16/2014 Patient [...]
--- OUTSIDE RECORDS SUMMARY | 2018-12-05 16:30 | XMS REPORT | CCD ---
Author Author [facility] Organization [facility] Address [address] [place] [address] Phone Care Team Providers Care Nutrition Internship Name Role Phone PP Unavailable CCM Unavailable Summary Purpose Interface Exchange Insurance Providers Payer name Policy type / Coverage type Covered constitution party ID Effective Begin Date Effective End Date WPS Medicare Part B Medicare Part B [id number] Unknown Unknown Principal Life Insurance Medicare Part B [id number] Unknown Unknown Family history Brother Diagnosis Age At Onset Heart Attack Unknown Mother Diagnosis Age At Onset Hypertension Unknown kidney disease Unknown Stroke Unknown Father Diagnosis Age At Onset Arthritis Unknown Social History Social History Element Codes Description Effective Dates Marital status Unknown Single 12/16/2014 Employment Unknown Retired 12/16/[address]: 5915009 Former smoker 12/16/[address]: 001831961 Never drinks alcohol 12/16/2014 Allergies, Adverse Reactions, [...] (vit B-12) 1,000 mcg/mL injection solution RxNorm: 610671 Milliliter(s) Inj 11/24/2016 11/24/2016 Inactive Ceftin 500 mg tablet RxNorm: 380219 1 Tablet(s) PO BID 11/11/2016 11/17/2016 Inactive Cipro 500 mg tablet RxNorm: 806139 1 Tablet(s) PO BID 11/11/2016 11/10/2016 Inactive Cipro 500 mg tablet RxNorm: 080850 1 Tablet(s) PO BID 11/11/2016 11/11/2016 Inactive cyanocobalamin (vit B-12) 1,000 mcg/mL injection solution RxNorm: 489787 1 Milliliter(s) Inj 11/07/2016 11/07/2016 Inactive hydrocodone 5 mg-acetaminophen 325 mg tablet RxNorm: 293748 1-2 Tablet(s) PO Q6 as needed for pain 11/02/2016 11/06/2016 Inactive levothyroxine 125 mcg tablet RxNorm: 403330 Tablet(s) 1 Tablet(s) PO daily 10/24/2016 04/21/2017 Active liothyronine 5 mcg tablet RxNorm: 102815 1 Tablet(s) PO BID 10/24/2016 04/21/2017 Active cyanocobalamin (vit B-12) 1,000 mcg/mL injection solution RxNorm: 849975 Milliliter(s) Inj 10/24/2016 10/24/2016 Inactive hydrocodone 5 mg-acetaminophen 325 mg tablet RxNorm: 327720 1-2 Tablet(s) PO Q6 as needed for pain 10/17/2016 10/21/2016 Inactive Keflex 500 mg capsule RxNorm: 080955 1 Capsule(s) PO TID 10/07/2016 10/06/2016 Inactive Keflex 500 mg capsule RxNorm: 608760 1 Capsule(s) PO TID 10/07/2016 10/16/2016 Inactive Please deliver to patient cyanocobalamin (vit B-12) 1,000 mcg/mL injection solution RxNorm: 964627 1 Milliliter(s) Inj 09/29/2016 09/29/2016 Inactive alprazolam 0.25 mg tablet RxNorm: 295283 1 Tablet(s) PO BID 09/20/2016 03/18/2017 Active Zoloft 50 mg tablet RxNorm: 380910 Tablet(s) TAKE 1 TABLET BY MOUTH DAILY 09/14/2016 03/12/2017 Active Generic For:ZOLOFT 50MG Cozaar 100 mg tablet RxNorm: 288879 1 Tablet(s) PO daily 09/14/2016 No Stop Date Active metoprolol tartrate 50 mg tablet RxNorm: 454919 1/2 Tablet(s) PO BID 09/14/2016 12/12/2016 Active liothyronine 5 mcg tablet RxNorm: 142321 1 Tablet(s) PO BID 09/14/2016 10/23/2016 Inactive Calmoseptine 0.44 %-20.6 % topical ointment RxNorm: 505489 1 Application TOP BID and as needed to sore on buttocks 09/07/2016 No Stop Date Active cyanocobalamin (vit B-12) 1,000 mcg/mL injection solution RxNorm: 817022 Milliliter(s) Inj 08/29/2016 08/29/2016 Inactive hydrocodone 5 mg-acetaminophen 325 mg tablet RxNorm: 127147 1-2 Tablet(s) PO Q6 as needed for pain 08/29/2016 10/16/2016 Inactive levothyroxine 125 mcg tablet RxNorm: 682935 1 Tablet(s) PO daily 08/25/2016 10/23/2016 Inactive Topamax 25 mg tablet RxNorm: 393077 TAKE 1 TABLET BY MOUTH EVERY DAY AT BEDTIME 08/17/2016 12/14/2016 Active Generic For:TOPAMAX 25MG 08/17/2016 2:14:37 PM hydrocodone 5 mg-acetaminophen 325 mg tablet RxNorm: 636518 1-2 Tablet(s) PO Q6 as needed for pain 08/11/2016 08/28/2016 Inactive hydrocodone 5 mg-acetaminophen 325 mg tablet RxNorm: 919933 1 -2 Tablet(s) PO Q6 as needed for pain 08/11/2016 08/18/2016 Inactive hydrocodone 5 mg-acetaminophen 325 mg tablet RxNorm: 024799 1 Tablet(s) PO Q6 as needed for pain 08/05/2016 08/10/2016 Inactive cyanocobalamin (vit B-12) 1,000 mcg/mL injection solution RxNorm: 046535 Milliliter(s) Inj 08/04/2016 08/04/2016 Inactive Norvasc 10 mg tablet RxNorm: 622973 1 Tablet(s) PO daily 07/26/2016 07/20/2017 Active levothyroxine 125 mcg tablet RxNorm: 433937 1 Tablet(s) PO daily 07/21/2016 10/18/2016 Inactive alprazolam 0.25 mg tablet RxNorm: 219970 1 Tablet(s) PO QHS 07/21/2016 09/19/2016 Inactive Norvasc 5 mg tablet RxNorm: 064372 1 Tablet(s) PO daily 07/21/2016 07/25/2016 Inactive cyanocobalamin (vit B-12) 1,000 mcg/mL injection solution RxNorm: 226739 Milliliter(s) Inj 07/21/2016 07/21/2016 Inactive Zoloft 50 mg tablet RxNorm: 955009 Tablet(s) TAKE 1 TABLET BY MOUTH DAILY 07/21/2016 09/13/2016 Inactive Generic For:ZOLOFT 50MG cyanocobalamin (vit B-12) 1,000 mcg/mL injection solution RxNorm: 882427 1 Milliliter(s) Inj 07/05/2016 07/05/2016 Inactive cyanocobalamin (vit B-12) 1,000 mcg/mL injection solution RxNorm: 715925 1 Milliliter(s) Inj 06/22/2016 06/22/2016 Inactive cyanocobalamin (vit B-12) 1,000 mcg/mL injection solution RxNorm: 403611 Milliliter(s) Inj 06/09/2016 06/09/2016 Inactive Aricept 10 mg tablet RxNorm: 684056 1 Tablet(s) PO daily 05/27/2016 05/21/2017 Active Mobic 15 mg tablet RxNorm: 600697 1 Tablet(s) PO daily 05/27/2016 05/21/2017 Active levothyroxine 125 mcg tablet RxNorm: 404052 1 Tablet(s) PO daily 05/25/2016 07/20/2016 Inactive cyanocobalamin (vit B-12) 1,000 mcg/mL injection solution RxNorm: 200653 1 Milliliter(s) Inj 05/25/2016 05/25/2016 Inactive doxycycline hyclate 100 mg capsule RxNorm: 9528292 1 Capsule(s) PO BID 05/16/2016 05/15/2016 Inactive doxycycline hyclate 100 mg capsule RxNorm: 0868190 1 Capsule(s) PO BID 05/16/2016 05/22/2016 Inactive cyanocobalamin (vit B-12) 1,000 mcg/mL injection solution RxNorm: 723158 Milliliter(s) Inj 05/10/2016 05/10/2016 Inactive cyanocobalamin (vit B-12) 1,000 mcg/mL injection solution RxNorm: 922464 Milliliter(s) Inj 04/26/2016 04/26/2016 Inactive Topamax 25 mg tablet RxNorm: 047034 1 Tablet(s) PO QPM 04/22/2016 08/16/2016 Inactive cyanocobalamin (vit B-12) 1,000 mcg/mL injection solution RxNorm: 165943 Milliliter(s) 1 Milliliter(s) Inj [id number] 04/11/2016 12/31/2017 Active liothyronine 5 mcg tablet RxNorm: 410856 1 Tablet(s) PO BID 04/11/2016 09/13/2016 Inactive cyanocobalamin (vit B-12) 1,000 mcg/mL injection solution RxNorm: 778989 Milliliter(s) Inj 04/11/2016 04/11/2016 Inactive cyanocobalamin (vit B-12) 1,000 mcg/mL injection solution RxNorm: 150949 Milliliter(s) Inj 03/31/2016 03/31/2016 Inactive cyanocobalamin (vit B-12) 1,000 mcg/mL injection solution RxNorm: 246558 1 Milliliter(s) Inj 03/15/2016 03/15/2016 Inactive levothyroxine 125 mcg tablet RxNorm: 020366 1 Tablet(s) PO daily 2016 03/03/2016 Inactive levothyroxine 125 mcg tablet RxNorm: 741945 1 Tablet(s) PO daily 2016 05/24/2016 Inactive cyanocobalamin (vit B-12) 1,000 mcg/mL injection solution RxNorm: 709090 Milliliter(s) Inj 02/25/2016 02/25/2016 Inactive cyanocobalamin (vit B-12) 1,000 mcg/mL injection solution RxNorm: 193164 1 Milliliter(s) Inj 02/02/2016 02/02/2016 Inactive sucralfate 1 gram tablet RxNorm: 166588 1 Tablet(s) PO QHS 01/25/2016 No Stop Date Active amiodarone 200 mg tablet RxNorm: 628836 1/2 Tablet(s) PO BID 01/25/2016 No Stop Date Active cyanocobalamin (vit B-12) 1,000 mcg/mL injection solution RxNorm: 285881 Milliliter(s) Inj 01/18/2016 01/18/2016 Inactive cyanocobalamin (vit B-12) 1,000 mcg/mL injection solution RxNorm: 076143 Milliliter(s) Inj 12/29/2015 12/29/2015 Inactive Topamax 25 mg tablet RxNorm: 708200 1 Tablet(s) PO QPM 12/08/2015 04/05/2016 Inactive cyanocobalamin (vit B-12) 1,000 mcg/mL injection solution RxNorm: 211907 Milliliter(s) Inj 12/08/2015 12/08/2015 Inactive Bactrim DS 800 mg-160 mg tablet RxNorm: 354672 1 Tablet(s) PO BID 11/23/2015 11/22/2015 Inactive cyanocobalamin (vit B-12) 1,000 mcg/mL injection solution RxNorm: 797150 Milliliter(s) Inj 11/23/2015 11/23/2015 Inactive Bactrim DS 800 mg-160 mg tablet RxNorm: 188115 1 Tablet(s) PO BID 11/23/2015 11/29/2015 Inactive cyanocobalamin (vit B-12) 1,000 mcg/mL injection solution RxNorm: 293175 Milliliter(s) Inj 11/11/2015 11/11/2015 Inactive amoxicillin 500 mg capsule RxNorm: 716789 1 Capsule(s) PO TID 11/10/2015 11/19/2015 Inactive Zithromax Z-Henrique 250 mg tablet RxNorm: 767498 1 Tablet(s) PO UD 11/10/2015 01/24/2016 Inactive zpack x 1 amoxicillin 500 mg capsule RxNorm: 396131 1 Capsule(s) PO TID 11/10/2015 11/09/2015 Inactive cyanocobalamin (vit B-12) 1,000 mcg/mL injection solution RxNorm: 570795 1 Milliliter(s) Inj 10/29/2015 10/29/2015 Inactive Alexander 3 capsule RxNorm: 1 Capsule(s) PO QAM , 2 Capsules at noon, 1 Capsule QHS 10/13/2015 No Stop Date Active potassium chloride ER 20 mEq tablet,extended release RxNorm: 824890 2 Tablet(s) PO daily at noon 10/13/2015 No Stop Date Active alprazolam 0.25 mg tablet RxNorm: 987828 1 Tablet(s) PO QHS 10/13/2015 07/20/2016 Inactive amiodarone 200 mg tablet RxNorm: 931853 1 Tablet(s) PO BID 10/13/2015 01/24/2016 Inactive cyanocobalamin (vit B-12) 1,000 mcg/mL injection solution RxNorm: 015869 1 Milliliter(s) Inj 10/12/2015 10/12/2015 Inactive Zofran 4 mg tablet RxNorm: 244505 1 Tablet(s) PO daily as needed 10/07/2015 05/24/2016 Inactive Zoloft 50 mg tablet RxNorm: 969698 TAKE 1 TABLET BY MOUTH DAILY 10/05/2015 05/01/2016 Inactive Generic For:ZOLOFT 50MG cyanocobalamin (vit B-12) 1,000 mcg/mL injection solution RxNorm: 417939 1 Milliliter(s) Inj 09/29/2015 09/29/2015 Inactive buspirone 15 mg tablet RxNorm: 621759 1 Tablet(s) PO BID 09/17/2015 09/10/2016 Inactive cyanocobalamin (vit B-12) 1,000 mcg/mL injection solution RxNorm: 298164 1 Milliliter(s) Inj 09/17/2015 09/17/2015 Inactive Norvasc 5 mg tablet RxNorm: 387688 1 Tablet(s) PO daily 09/17/2015 07/20/2016 Inactive liothyronine 5 mcg tablet RxNorm: 527050 1 Tablet(s) PO BID 09/17/2015 03/14/2016 Inactive Zoloft 50 mg tablet RxNorm: 162878 1 Tablet(s) PO daily 09/17/2015 10/04/2015 Inactive buspirone 15 mg tablet RxNorm: 103928 1 Tablet(s) PO BID 09/14/2015 09/16/2015 Inactive Topamax 25 mg tablet RxNorm: 284045 1 Tablet(s) PO QPM 09/03/2015 12/07/2015 Inactive cyanocobalamin (vit B-12) 1,000 mcg/mL injection solution RxNorm: 225411 1 Milliliter(s) Inj 09/03/2015 09/03/2015 Inactive cyanocobalamin (vit B-12) 1,000 mcg/mL injection solution RxNorm: 734518 Milliliter(s) Inj 08/17/2015 08/17/2015 Inactive cyanocobalamin (vit B-12) 1,000 mcg/mL injection solution RxNorm: 007274 Milliliter(s) Inj 08/06/2015 08/06/2015 Inactive levothyroxine 150 mcg tablet RxNorm: 673090 1 Tablet(s) PO daily 07/22/2015 03/03/2016 Inactive Aricept 10 mg tablet RxNorm: 138130 1 Tablet(s) PO daily 07/22/2015 05/26/2016 Inactive Mobic 15 mg tablet RxNorm: 895192 1 Tablet(s) PO daily 07/22/2015 05/26/2016 Inactive cyanocobalamin (vit B-12) 1,000 mcg/mL injection solution RxNorm: 509305 Milliliter(s) Inj 07/22/2015 07/22/2015 Inactive liothyronine 5 mcg tablet RxNorm: 974108 1 Tablet(s) PO BID 07/22/2015 09/16/2015 Inactive cyanocobalamin (vit B-12) 1,000 mcg/mL injection solution RxNorm: 327186 Milliliter(s) Inj 07/08/2015 07/08/2015 Inactive cyanocobalamin (vit B-12) 1,000 mcg/mL injection solution RxNorm: 280544 Milliliter(s) Inj 06/23/2015 06/23/2015 Inactive cyanocobalamin (vit B-12) 1,000 mcg/mL injection solution RxNorm: 816408 1 Milliliter(s) Inj 06/08/2015 06/08/2015 Inactive cyanocobalamin (vit B-12) 1,000 mcg/mL injection solution RxNorm: 546868 Milliliter(s) Inj 05/27/2015 05/27/2015 Inactive Aricept 10 mg tablet RxNorm: 171982 1 Tablet(s) PO daily 05/20/2015 07/21/2015 Inactive Zofran 4 mg tablet RxNorm: 585471 1 Tablet(s) PO daily as needed 05/20/2015 06/18/2015 Inactive alprazolam 0.25 mg tablet RxNorm: 704935 1 Tablet(s) PO BID 05/20/2015 10/12/2015 Inactive Mobic 15 mg tablet RxNorm: 515073 1 Tablet(s) PO daily 05/20/2015 07/21/2015 Inactive tramadol ER 100 mg tablet,extended release 24 hr RxNorm: 463318 1 Tablet(s) PO Q6 as needed 05/13/2015 No Stop Date Active cyanocobalamin (vit B-12) 1,000 mcg/mL injection solution RxNorm: 521152 1 Milliliter(s) Inj 05/12/2015 05/12/2015 Inactive Topamax 25 mg tablet RxNorm: 647406 1 Tablet(s) PO BID (start at one pill at bedtime x 1week then twice daily thereafter) 05/12/2015 09/02/2015 Inactive cyanocobalamin (vit B-12) 1,000 mcg/mL injection kit RxNorm: 870191 kit Inj 04/30/2015 04/30/2015 Inactive cyanocobalamin (vit B-12) 1,000 mcg/mL injection solution RxNorm: 783395 Milliliter(s) Inj 04/16/2015 04/16/2015 Inactive levothyroxine 150 mcg tablet RxNorm: 155090 1 Tablet(s) PO daily 04/08/2015 07/21/2015 Inactive cyanocobalamin (vit B-12) 1,000 mcg/mL injection solution RxNorm: 523722 Milliliter(s) 1 Milliliter(s) Inj L4nyyst 04/08/2015 04/10/2016 Inactive Cytomel 5 mcg tablet RxNorm: 007818 1 Tablet(s) PO BID 04/08/2015 10/12/2015 Inactive Cytomel 5 mcg tablet RxNorm: 320817 1 Tablet(s) PO BID 04/07/2015 04/07/2015 Inactive Cytomel 5 mcg tablet RxNorm: 215236 1 Tablet(s) PO BID 04/07/2015 04/06/2015 Inactive cyanocobalamin (vit B-12) 1,000 mcg/mL injection solution RxNorm: 378998 Milliliter(s) Inj 04/02/2015 04/02/2015 Inactive cyanocobalamin (vit B-12) 1,000 mcg/mL injection solution RxNorm: 086297 Milliliter(s) Inj 03/18/2015 03/18/2015 Inactive cyanocobalamin (vit B-12) 1,000 mcg/mL injection solution RxNorm: 012781 Milliliter(s) 1 Milliliter(s) Inj [id number] 03/18/2015 04/07/2015 Inactive cyanocobalamin (vit B-12) 1,000 mcg/mL injection solution RxNorm: 257668 1 Milliliter(s) Inj [id number] 03/16/2015 03/17/2015 Inactive cyanocobalamin (vit B-12) 1,000 mcg/mL injection solution RxNorm: 348062 Milliliter(s) Inj 03/03/2015 03/03/2015 Inactive cyanocobalamin (vit B-12) 1,000 mcg/mL injection solution RxNorm: 446149 Milliliter(s) Inj 02/18/2015 02/18/2015 Inactive cyanocobalamin (vit B-12) 1,000 mcg/mL injection solution RxNorm: 029456 Milliliter(s) Inj 02/04/2015 02/04/2015 Inactive cyanocobalamin (vit B-12) 1,000 mcg/mL injection solution RxNorm: 165990 Milliliter(s) Inj 01/22/2015 01/22/2015 Inactive Lac-Hydrin Five 5 % lotion RxNorm: 734285 1 TOP daily 01/13/2015 03/13/2015 Inactive Lac-Hydrin Five 5 % lotion RxNorm: 148100 1 TOP daily 01/13/2015 01/12/2015 Inactive cyanocobalamin (vit B-12) 1,000 mcg/mL injection solution RxNorm: 663192 Milliliter(s) Inj 01/08/2015 01/08/2015 Inactive cyanocobalamin (vit B-12) 1,000 mcg/mL injection solution RxNorm: 721504 Milliliter(s) Inj 12/25/2014 12/25/2014 Inactive levothyroxine 150 mcg tablet RxNorm: 150456 1 Tablet(s) PO daily 12/24/2014 04/07/2015 Inactive tramadol 50 mg tablet RxNorm: 675615 1-2 Tablet(s) PO Q6 as needed 12/17/2014 05/12/2015 Inactive alprazolam 0.25 mg tablet RxNorm: 750152 1 Tablet(s) PO BID 12/17/2014 04/15/2015 Inactive Pradaxa 150 mg capsule RxNorm: 0440002 1 Capsule(s) PO BID 12/16/2014 No Stop Date Active metoprolol tartrate 50 mg tablet RxNorm: 439254 1/2 Tablet(s) PO BID 12/16/2014 09/13/2016 Inactive buspirone 15 mg tablet RxNorm: 276053 1 Tablet(s) PO BID 12/16/2014 09/13/2015 Inactive cyanocobalamin (vit B-12) 1,000 mcg/mL injection solution RxNorm: 521282 1 Milliliter(s) Inj C3dwdak 12/16/2014 03/15/2015 Inactive cyanocobalamin (vit B-12) 1,000 mcg/mL injection solution RxNorm: 959925 1 Milliliter(s) Inj I6bxtew 12/16/2014 12/15/2014 Inactive sucralfate 1 gram tablet RxNorm: 004183 Tablet(s) PO QID 12/16/2014 12/10/2015 Inactive cyanocobalamin (vit B-12) 1,000 mcg/mL injection solution RxNorm: 695511 Milliliter(s) Inj 12/10/2014 12/10/2014 Inactive cyanocobalamin (vit B-12) 1,000 mcg/mL injection solution RxNorm: 811224 Milliliter(s) Inj 11/26/2014 11/26/2014 Inactive Zoloft 50 mg tablet RxNorm: 887036 1 Tablet(s) PO daily 11/24/2014 06/21/2015 Inactive Zoloft 50 mg tablet RxNorm: 566702 1 Tablet(s) PO daily 11/24/2014 11/23/2014 Inactive cyanocobalamin (vit B-12) 1,000 mcg/mL injection kit RxNorm: 931842 Milliliter(s) Inj 11/12/2014 11/12/2014 Inactive cyanocobalamin (vit B-12) 1,000 mcg/mL injection solution RxNorm: 512838 Milliliter(s) Inj 10/28/2014 10/28/2014 Inactive [SAVINGS FOR NON-COVERED DRUGS -- BIN:[id number], PCN: [id number], Group: [id number], ID# [id number], Questions: . THIS IS NOT INSURANCE.] promethazine oral RxNorm: 8745 oral No Start Date Active digoxin 125 mcg tablet RxNorm: 941958 Tablet(s) PO every other day No Start Date Active furosemide 40 mg tablet RxNorm: 377437 1 Tablet(s) PO daily No Start Date Active Vitamin D3 5,000 unit tablet RxNorm: 914509 1 Tablet(s) PO daily No Start Date Active erythromycin 250 mg capsule,delayed release RxNorm: 857969 1 Capsule(s) PO AC No Start Date Active Protonix 40 mg tablet,delayed release RxNorm: 096660 1 Tablet(s) PO BID No Start Date Active Cozaar 100 mg tablet RxNorm: 589513 1 Tablet(s) PO daily No Start Date 09/13/2016 Inactive sucralfate 1 gram tablet RxNorm: 304443 Tablet(s) PO QID No Start Date 12/15/2014 Inactive amiodarone 200 mg tablet RxNorm: 473946 2 Tablet(s) PO daily No Start Date 10/13/2015 Inactive buspirone 15 mg tablet RxNorm: 447446 1 Tablet(s) PO daily No Start Date 12/15/2014 Inactive potassium chloride ER 20 mEq tablet,extended release RxNorm: 766827 1 Tablet(s) PO daily No Start Date 10/12/2015 Inactive Prilosec 40 mg capsule,delayed release RxNorm: 087195 1 Capsule(s) PO daily No Start Date 09/02/2015 Inactive Alexander 3 capsule RxNorm: Capsule(s) PO No Start Date 10/12/2015 Inactive alprazolam 0.25 mg tablet RxNorm: 115134 Tablet(s) PO QHS No Start Date 12/16/2014 Inactive levothyroxine 125 mcg tablet RxNorm: 223063 1 Tablet(s) PO daily No Start Date 12/23/2014 Inactive liothyronine 5 mcg tablet RxNorm: 649506 1 Tablet(s) PO BID No Start Date 07/21/2015 Inactive Mobic 15 mg tablet RxNorm: 309503 Tablet(s) PO daily No Start Date 05/19/2015 Inactive Norvasc 5 mg tablet RxNorm: 453259 1 Tablet(s) PO daily No Start Date 09/16/2015 Inactive Zofran 4 mg tablet RxNorm: 970949 1 Tablet(s) PO daily as needed No Start Date 05/19/2015 Inactive tramadol 50 mg tablet RxNorm: 883941 1 Tablet(s) PO daily as needed No Start Date 12/16/2014 Inactive amiodarone 200 mg tablet RxNorm: 810482 1 Tablet(s) PO daily No Start Date 10/12/2015 Inactive meclizine 25 mg tablet RxNorm: 802723 Tablet(s) PO as needed No Start Date 05/24/2016 Inactive Pradaxa 150 mg capsule RxNorm: 1316823 1 Capsule(s) PO daily No Start Date 12/15/2014 Inactive metoprolol tartrate 50 mg tablet RxNorm: 345985 1/2 Tablet(s) PO No Start Date 12/15/2014 Inactive Aricept 10 mg tablet RxNorm: 737980 Tablet(s) PO daily No Start Date 05/19/2015 Inactive Calmoseptine 0.44 %-20.6 % topical ointment RxNorm: 493258 1 Application TOP BID and as needed to sore on buttocks No Start Date 09/06/2016 Inactive Zithromax Z-Henrique 250 mg tablet RxNorm: 414100 1 Tablet(s) PO UD No Start Date 11/09/2015 Inactive zpack x 1 Medication Administered Medication Codes Instructions Start Date Status cyanocobalamin (vit B-12) 1,000 mcg/mL injection solution RxNorm: 705075 Milliliter 11/24/2016 Active cyanocobalamin (vit B-12) 1,000 mcg/mL injection solution RxNorm: 918503 1Milliliter 11/07/2016 No longer Active cyanocobalamin (vit B-12) 1,000 mcg/mL injection solution RxNorm: 112678 Milliliter 10/24/2016 No longer Active cyanocobalamin (vit B-12) 1,000 mcg/mL injection solution RxNorm: 036169 1Milliliter 09/29/2016 No longer Active cyanocobalamin (vit B-12) 1,000 mcg/mL injection solution RxNorm: 643117 Milliliter 08/29/2016 No longer Active cyanocobalamin (vit B-12) 1,000 mcg/mL injection solution RxNorm: 844339 Milliliter 08/04/2016 No longer Active cyanocobalamin (vit B-12) 1,000 mcg/mL injection solution RxNorm: 351055 Milliliter 07/21/2016 No longer Active cyanocobalamin (vit B-12) 1,000 mcg/mL injection solution RxNorm: 288178 1Milliliter 07/05/2016 No longer Active cyanocobalamin (vit B-12) 1,000 mcg/mL injection solution RxNorm: 480474 1Milliliter 06/22/2016 No longer Active cyanocobalamin (vit B-12) 1,000 mcg/mL injection solution RxNorm: 924732 Milliliter 06/09/2016 No longer Active cyanocobalamin (vit B-12) 1,000 mcg/mL injection solution RxNorm: 668085 1Milliliter 05/25/2016 No longer Active cyanocobalamin (vit B-12) 1,000 mcg/mL injection solution RxNorm: 784121 Milliliter 05/10/2016 No longer Active cyanocobalamin (vit B-12) 1,000 mcg/mL injection solution RxNorm: 372080 Milliliter 04/26/2016 No longer Active cyanocobalamin (vit B-12) 1,000 mcg/mL injection solution RxNorm: 816219 Milliliter 04/11/2016 No longer Active cyanocobalamin (vit B-12) 1,000 mcg/mL injection solution RxNorm: 427016 Milliliter 03/31/2016 No longer Active cyanocobalamin (vit B-12) 1,000 mcg/mL injection solution RxNorm: 799962 1Milliliter 03/15/2016 No longer Active cyanocobalamin (vit B-12) 1,000 mcg/mL injection solution RxNorm: 273769 Milliliter 02/25/2016 No longer Active cyanocobalamin (vit B-12) 1,000 mcg/mL injection solution RxNorm: 196201 1Milliliter 02/02/2016 No longer Active cyanocobalamin (vit B-12) 1,000 mcg/mL injection solution RxNorm: 409836 Milliliter 01/18/2016 No longer Active cyanocobalamin (vit B-12) 1,000 mcg/mL injection solution RxNorm: 601845 Milliliter 12/29/2015 No longer Active cyanocobalamin (vit B-12) 1,000 mcg/mL injection solution RxNorm: 956623 Milliliter 12/08/2015 No longer Active cyanocobalamin (vit B-12) 1,000 mcg/mL injection solution RxNorm: 786602 Milliliter 11/23/2015 No longer Active cyanocobalamin (vit B-12) 1,000 mcg/mL injection solution RxNorm: 155323 Milliliter 11/11/2015 No longer Active cyanocobalamin (vit B-12) 1,000 mcg/mL injection solution RxNorm: 690408 1Milliliter 10/29/2015 No longer Active cyanocobalamin (vit B-12) 1,000 mcg/mL injection solution RxNorm: 597094 1Milliliter 10/12/2015 No longer Active cyanocobalamin (vit B-12) 1,000 mcg/mL injection solution RxNorm: 944337 1Milliliter 09/29/2015 No longer Active cyanocobalamin (vit B-12) 1,000 mcg/mL injection solution RxNorm: 761426 1Milliliter 09/17/2015 No longer Active cyanocobalamin (vit B-12) 1,000 mcg/mL injection solution RxNorm: 369825 1Milliliter 09/03/2015 No longer Active cyanocobalamin (vit B-12) 1,000 mcg/mL injection solution RxNorm: 499103 Milliliter 08/17/2015 No longer Active cyanocobalamin (vit B-12) 1,000 mcg/mL injection solution RxNorm: 810317 Milliliter 08/06/2015 No longer Active cyanocobalamin (vit B-12) 1,000 mcg/mL injection solution RxNorm: 542250 Milliliter 07/22/2015 No longer Active cyanocobalamin (vit B-12) 1,000 mcg/mL injection solution RxNorm: 198508 Milliliter 07/08/2015 No longer Active cyanocobalamin (vit B-12) 1,000 mcg/mL injection solution RxNorm: 877969 Milliliter 06/23/2015 No longer Active cyanocobalamin (vit B-12) 1,000 mcg/mL injection solution RxNorm: 076065 1Milliliter 06/08/2015 No longer Active cyanocobalamin (vit B-12) 1,000 mcg/mL injection solution RxNorm: 008091 Milliliter 05/27/2015 No longer Active cyanocobalamin (vit B-12) 1,000 mcg/mL injection solution RxNorm: 759657 1Milliliter 05/12/2015 No longer Active cyanocobalamin (vit B-12) 1,000 mcg/mL injection kit RxNorm: 366030 kit 04/30/2015 No longer Active cyanocobalamin (vit B-12) 1,000 mcg/mL injection solution RxNorm: 002710 Milliliter 04/16/2015 No longer Active cyanocobalamin (vit B-12) 1,000 mcg/mL injection solution RxNorm: 584937 Milliliter 04/02/2015 No longer Active cyanocobalamin (vit B-12) 1,000 mcg/mL injection solution RxNorm: 895318 Milliliter 03/18/2015 No longer Active cyanocobalamin (vit B-12) 1,000 mcg/mL injection solution RxNorm: 134175 Milliliter 03/03/2015 No longer Active cyanocobalamin (vit B-12) 1,000 mcg/mL injection solution RxNorm: 977957 Milliliter 02/18/2015 No longer Active cyanocobalamin (vit B-12) 1,000 mcg/mL injection solution RxNorm: 181984 [facility] 02/04/2015 No longer Active cyanocobalamin (vit B-12) 1,000 mcg/mL injection solution RxNorm: 371002 [facility] 01/22/2015 No longer Active cyanocobalamin (vit B-12) 1,000 mcg/mL injection solution RxNorm: 391690 [facility] 01/08/2015 No longer Active cyanocobalamin (vit B-12) 1,000 mcg/mL injection solution RxNorm: 922202 [facility] 12/25/2014 No longer Active cyanocobalamin (vit B-12) 1,000 mcg/mL injection solution RxNorm: [id number] [facility] 12/10/2014 No longer Active cyanocobalamin (vit B-12) 1,000 mcg/mL injection solution RxNorm: 253636 Milliliter 11/26/2014 No longer Active cyanocobalamin (vit B-12) 1,000 mcg/mL injection kit RxNorm: 743263 Milliliter 11/12/2014 No longer Active cyanocobalamin (vit B-12) 1,000 mcg/mL injection solution RxNorm: 918301 Milliliter 10/28/2014 No longer Active Immunizations Vaccine [...] Item Item Code Result Date Culture Urine [id number] URINE CULTURE SEE NOTES 11/10/2016 Culture Urine [id number] Continued Results 11/10/2016 Urine Culture Ucult Complete [...] Ord15 CALCIUM 9.3 mg/dL 09/29/2016 Free T4 Mxv521 FREE T4 0.99 ng/dL 09/07/2016 Cbc With [...] 91.7 fl 09/07/2016 Cbc With Differential Ord2 MCH 30.0 pg 09/07/2016 Cbc With Differential Ord2 Mckean% 9.8 % 09/07/2016 Cbc With Differential Ord2 Eos% 2.0 % 09/07/2016 Cbc With Differential Ord2 MCHC 32.7 pg 09/07/2016 Cbc With Differential Ord2 PLT 198 K/ul 09/07/2016 Cbc With Differential Ord2 Baso% 0.6 % 09/07/2016 Cbc With Differential Ord2 Neut ABS# 3.85 K/ul 09/07/2016 Cbc With Differential Ord2 RDW 14.5 % 09/07/2016 Cbc With Differential Ord2 Lymph ABS# 1.75 K/ul 09/07/2016 Cbc With Differential Ord2 Mckean ABS# 0.6 K/ul 09/07/2016 Cbc With Differential Ord2 Eos ABS# 0.1 K/ul 09/07/2016 Cbc With Differential Ord2 Baso ABS# 0.0 K/ul 09/07/2016 Tsh Ord6 hTSH II 1.41 uIU/mL 09/07/2016 Culture Urine [id number] URINE CULTURE SEE NOTES 06/27/2016 Lipid Ord30 CHOL 196 mg/dL 06/22/2016 Lipid Ord30 HDL 63.0 mg/dl 06/22/2016 Lipid Ord30 TRIG 154 mg/dL 06/22/2016 Lipid Ord30 LDL 102 mg/dL 06/22/2016 Lipid Ord30 C/HDL 3.1 Ratio 06/22/2016 Hepatic Vet564 ALBUMIN 4.2 g/dL 06/22/2016 Hepatic Fki652 TPRO 7.0 g/dL 06/22/2016 Hepatic Dnt393 GLOB 2.8 g/dL 06/22/2016 Hepatic Ttj555 A/G Ratio 1.5 Ratio 06/22/2016 Hepatic Tme654 ALK PHOS 54 U/L 06/22/2016 Hepatic Ahc246 ALT(SGPT) 30 U/L 06/22/2016 Hepatic Ucc692 AST(SGOT) 24 U/L 06/22/2016 Hepatic Dhu610 BILI T 1.1 mg/dL 06/22/2016 Hepatic Ine733 BILI D 0.2 mg/dL 06/22/2016 Hepatic Veo049 BILI I 0.9 mg/dL 06/22/2016 Comp Metabolic Lgd835 NA 139 mEq/L 06/14/2016 Comp Metabolic Rvr134 K 4.6 mEq/L 06/14/2016 Comp Metabolic Lvv047 CL 108 mEq/L 06/14/2016 Comp Metabolic Iji540 CO2 22.0 mEq/L 06/14/2016 Comp Metabolic Uuo598 ANION GAP 14 06/14/2016 Comp Metabolic Qkz132 GLUCOSE 114 mg/dL 06/14/2016 Comp Metabolic Yyw987 Creat 1.2 mg/dL 06/14/2016 Comp Metabolic Fcf157 eGFR 48 ml/min/1.73m2 06/14/2016 Comp Metabolic Ylq789 BUN 24 mg/dL 06/14/2016 Comp Metabolic Eqn308 B/C Ratio 20.9 Ratio 06/14/2016 Comp Metabolic Vsy761 CALCIUM 9.9 mg/dL 06/14/2016 Comp Metabolic Nqr587 ALK PHOS 47 U/L 06/14/2016 Comp Metabolic Dlq933 AST(SGOT) 28 U/L 06/14/2016 Comp Metabolic Fbu390 ALT(SGPT) 32 U/L 06/14/2016 Comp Metabolic Gow767 BILI T 0.9 mg/dL 06/14/2016 Comp Metabolic Olx659 ALBUMIN 4.1 g/dL 06/14/2016 Comp Metabolic Mhq605 TPRO 6.9 g/dL 06/14/2016 Comp Metabolic Qtn621 GLOB 2.8 g/dL 06/14/2016 Comp Metabolic Hwi412 A/G Ratio 1.5 Ratio 06/14/2016 Comp Metabolic Ryd677 Osmo 282 mOsmo 06/14/2016 Tsh Ord6 hTSH II 1.26 uIU/mL 06/14/2016 Free T4 Dpl909 FREE T4 1.09 ng/dL 06/14/2016 Tsh Ord6 hTSH II 0.28 uIU/mL 02/02/2016 Digoxin Ord9 DIGOXIN 0.7 NG/ML 02/02/2016 Free T4 Vcb589 FREE T4 1.23 ng/dL 02/02/2016 Hepatic Dzv194 ALBUMIN 4.0 g/dL 02/02/2016 Hepatic Bmy081 TPRO 7.0 g/dL 02/02/2016 Hepatic Fiu488 GLOB 3.0 g/dL 02/02/2016 Hepatic Atd804 A/G Ratio 1.3 Ratio 02/02/2016 Hepatic Iek687 ALK PHOS 57 U/L 02/02/2016 Hepatic Pbh367 ALT(SGPT) 62 U/L 02/02/2016 Hepatic Gza321 AST(SGOT) 54 U/L 02/02/2016 Hepatic Luh088 BILI T 0.8 mg/dL 02/02/2016 Hepatic Nkg632 BILI D 0.2 mg/dL 02/02/2016 Hepatic Rpc022 BILI I 0.6 mg/dL 02/02/2016 Urine Culture Ucult Preliminary No Growth Day 1 11/25/2015 Urine Culture Ucult Complete No Growth Day 2 11/25/2015 Hepatic Lpc973 ALBUMIN 3.9 g/dL 11/11/2015 Hepatic Iwh268 TPRO 7.0 g/dL 11/11/2015 Hepatic Wkw936 GLOB 3.1 g/dL 11/11/2015 Hepatic Bkt863 A/G Ratio 1.3 Ratio 11/11/2015 Hepatic Kme656 ALK PHOS 63 U/L 11/11/2015 Hepatic Wax713 ALT(SGPT) 107 U/L 11/11/2015 Hepatic Pvk199 AST(SGOT) 101 U/L 11/11/2015 Hepatic Hfk600 BILI T 0.6 mg/dL 11/11/2015 Hepatic Ubu658 BILI D 0.1 mg/dL 11/11/2015 Hepatic Ubx456 BILI I 0.5 mg/dL 11/11/2015 Comp Metabolic Fil300 NA 138 mEq/L 10/29/2015 Comp Metabolic Mkk806 K 5.0 mEq/L 10/29/2015 Comp Metabolic Lkx063 CL 105 mEq/L 10/29/2015 Comp Metabolic Zcq020 CO2 23.0 mEq/L 10/29/2015 Comp Metabolic Ujk206 ANION GAP 15 10/29/2015 Comp Metabolic Alc531 GLUCOSE 105 mg/dL 10/29/2015 Comp Metabolic Uik391 Creat 1.0 mg/dL 10/29/2015 Comp Metabolic Guf594 eGFR 55 ml/min/1.73m2 10/29/2015 Comp Metabolic Bsx093 BUN 20 mg/dL 10/29/2015 Comp Metabolic Xjh314 B/C Ratio 19.4 Ratio 10/29/2015 Comp Metabolic Xix149 CALCIUM 8.8 mg/dL 10/29/2015 Comp Metabolic Crp647 ALK PHOS 56 U/L 10/29/2015 Comp Metabolic Ajq270 AST(SGOT) 66 U/L 10/29/2015 Comp Metabolic Epp615 ALT(SGPT) 78 U/L 10/29/2015 Comp Metabolic Wpe063 BILI T 0.7 mg/dL 10/29/2015 Comp Metabolic Yup967 ALBUMIN 3.6 g/dL 10/29/2015 Comp Metabolic Wqy823 TPRO 6.6 g/dL 10/29/2015 Comp Metabolic Jnn593 GLOB 3.0 g/dL 10/29/2015 Comp Metabolic Nxk398 A/G Ratio 1.2 Ratio 10/29/2015 Comp Metabolic Zzs310 Osmo 279 mOsmo 10/29/2015 Comp Metabolic Ggg318 NA 136 mEq/L 09/03/2015 Comp Metabolic Jao719 K 4.4 mEq/L 09/03/2015 Comp Metabolic Tgq746 CL 103 mEq/L 09/03/2015 Comp Metabolic Acy813 CO2 24.0 mEq/L 09/03/2015 Comp Metabolic Nvf892 ANION GAP 13 09/03/2015 Comp Metabolic Ttv416 GLUCOSE 87 mg/dL 09/03/2015 Comp Metabolic Ipd852 Creat 1.1 mg/dL 09/03/2015 Comp Metabolic Krr542 eGFR 53 ml/min/1.73m2 09/03/2015 Comp Metabolic Voc407 BUN 17 mg/dL 09/03/2015 Comp Metabolic Yir640 B/C Ratio 16.2 Ratio 09/03/2015 Comp Metabolic Gna731 CALCIUM 9.0 mg/dL 09/03/2015 Comp Metabolic Seq346 ALK PHOS 55 U/L 09/03/2015 Comp Metabolic Nzm510 AST(SGOT) 83 U/L 09/03/2015 Comp Metabolic Bin686 ALT(SGPT) 126 U/L 09/03/2015 Comp Metabolic Ets355 BILI T 0.9 mg/dL 09/03/2015 Comp Metabolic Pfa709 ALBUMIN 3.9 g/dL 09/03/2015 Comp Metabolic Puq450 TPRO 6.8 g/dL 09/03/2015 Comp Metabolic Vtr995 GLOB 2.9 g/dL 09/03/2015 Comp Metabolic Vxa947 A/G Ratio 1.4 Ratio 09/03/2015 Comp Metabolic Ejt820 Osmo 273 mOsmo 09/03/2015 Total T3 Ord42 TT3 0.6 ng/ml 07/09/2015 Tsh Ord6 hTSH II 1.62 uIU/mL 07/09/2015 Total T3 Ord42 TT3 0.5 ng/ml 04/02/2015 Free T4 Pdv566 FREE T4 1.23 ng/dL 04/02/2015 Tsh Ord6 [...] Procedure Codes Date THER/PROPH/DIAG INJ SC/IM CPT-4: 67857Anrpwmu 11/24/2016 URINALYSIS NONAUTO W/O SCOPE CPT-4: 71861Vdufczk 11/07/2016 THER/PROPH/DIAG INJ SC/IM CPT-4: 78122Lwaxsut 11/07/2016 THER/PROPH/DIAG INJ SC/IM CPT-4: 28678Mccddzu 10/24/2016 THER/PROPH/DIAG INJ SC/IM CPT-4: 60365Hmpztil 09/29/2016 THER/PROPH/DIAG INJ SC/IM CPT-4: 58919Ennliiy 08/29/2016 THER/PROPH/DIAG INJ SC/IM CPT-4: 77526Gxdqgps 08/04/2016 THER/PROPH/DIAG INJ SC/IM CPT-4: 83185Loqujsr 07/21/2016 THER/PROPH/DIAG INJ SC/IM CPT-4: 35734Invbypj 07/05/2016 THER/PROPH/DIAG INJ SC/IM CPT-4: 45382Punltto 06/22/2016 URINALYSIS NONAUTO W/O SCOPE CPT-4: 78181Ezbuycg 06/22/2016 THER/PROPH/DIAG INJ SC/IM CPT-4: 75480Sdxnqpi 06/09/2016 PPPS, SUBSEQ VISIT CPT-4: P8885Dhvewws 05/30/2016 ADMIN PNEUMOCOCCAL VACCINE SNOMED CT: 58758864 CPT-4: K5286Rmctajx 05/25/2016 Pneumococcal Polysaccharide Vaccine, 23-Valent, Ad CPT-4: 42764Dqwlpwg 05/25/2016 THER/PROPH/DIAG INJ SC/IM CPT-4: 52230Liqzeaz 05/25/2016 THER/PROPH/DIAG INJ SC/IM CPT-4: 63034Royioox 05/10/2016 TRIAMCINOLONE ACET INJ NOS CPT-4: W3463Seqftqv 04/26/2016 VITAMIN B12 INJECTION CPT-4: R0355Zslgnpy 04/26/2016 THER/PROPH/DIAG INJ SC/IM CPT-4: 06338Xqrlnyv 04/11/2016 THER/PROPH/DIAG INJ SC/IM CPT-4: 72614Gpqfdwi 03/31/2016 ADMIN INFLUENZA VIRUS VAC CPT-4: I1604Rsrfivd 03/15/2016 FLU VACC 4 STEPHANIE 3 YRS PLUS IM SNOMED CT: 62540847 CPT-4: 82152Ybesavq 03/15/2016 THER/PROPH/DIAG INJ SC/IM CPT-4: 11693Tqhgcif 02/25/2016 THER/PROPH/DIAG INJ SC/IM CPT-4: 38063Zljqgbm 02/02/2016 THER/PROPH/DIAG INJ SC/IM CPT-4: 03915Mntyzvo 01/18/2016 VITAMIN B12 INJECTION CPT-4: U4804Voayquc 12/29/2015 THER/PROPH/DIAG INJ SC/IM CPT-4: 18428Ljyzggo 12/29/2015 THER/PROPH/DIAG INJ SC/IM CPT-4: 70118Viemcis 12/08/2015 THER/PROPH/DIAG INJ SC/IM CPT-4: 54196Qekukjk 11/23/2015 URINALYSIS NONAUTO W/O SCOPE CPT-4: 44215Xkpwsyu 11/23/2015 THER/PROPH/DIAG INJ SC/IM CPT-4: 55676Ooebcfw 11/11/2015 THER/PROPH/DIAG INJ SC/IM CPT-4: 54924Mdfqwbo 10/29/2015 THER/PROPH/DIAG INJ SC/IM CPT-4: 85992Yoclitl 10/12/2015 VITAMIN B12 INJECTION CPT-4: Z3056Bkueruf 10/12/2015 THER/PROPH/DIAG INJ SC/IM CPT-4: 99361Ofhwqup 09/29/2015 THER/PROPH/DIAG INJ SC/IM CPT-4: 00683Atbfrgk 09/17/2015 THER/PROPH/DIAG INJ SC/IM CPT-4: 30323Qdaoqed 09/03/2015 THER/PROPH/DIAG INJ SC/IM CPT-4: 48457Rzegbhx 08/17/2015 THER/PROPH/DIAG INJ SC/IM CPT-4: 93701Imnwcuz 08/06/2015 THER/PROPH/DIAG INJ SC/IM CPT-4: 41077Khpabkr 07/22/2015 THER/PROPH/DIAG INJ SC/IM CPT-4: 48338Ghnmtkt 07/08/2015 THER/PROPH/DIAG INJ SC/IM CPT-4: 69130Rnytgin 06/23/2015 THER/PROPH/DIAG INJ SC/IM CPT-4: 76779Bsiedzq 06/08/2015 THER/PROPH/DIAG INJ SC/IM CPT-4: 93849Ezoityo 05/27/2015 DESTRUCT PREMALG LESION CPT-4: 89001Eisdfcx 05/19/2015 DESTRUCT PREMALG LES 2-14 CPT-4: 24246Fzxspvx 05/19/2015 THER/PROPH/DIAG INJ SC/IM CPT-4: 59374Frvmvob 05/12/2015 VITAMIN B12 INJECTION CPT-4: G5044Cuiemyx 05/12/2015 THER/PROPH/DIAG INJ SC/IM CPT-4: 96435Oekutix 04/30/2015 VITAMIN B12 INJECTION CPT-4: U1938Jxjfoyq 04/30/2015 THER/PROPH/DIAG INJ SC/IM CPT-4: 05308Uxafgsw 04/16/2015 THER/PROPH/DIAG INJ SC/IM CPT-4: 35837Pnlajca 04/02/2015 VITAMIN B12 INJECTION CPT-4: F4138Bcrhhxx 04/02/2015 THER/PROPH/DIAG INJ SC/IM CPT-4: 82574Cmcpfmx 03/18/2015 THER/PROPH/DIAG INJ SC/IM CPT-4: 52331Zwvgsyf 03/03/2015 THER/PROPH/DIAG INJ SC/IM CPT-4: 38018Vlbjohz 02/18/2015 THER/PROPH/DIAG INJ SC/IM CPT-4: 28122Fdozlra 02/04/2015 VITAMIN B12 INJECTION CPT-4: P3017Sowtdzz 02/04/2015 THER/PROPH/DIAG INJ SC/IM CPT-4: 78197Ylxgzmw 01/22/2015 THER/PROPH/DIAG INJ SC/IM CPT-4: 38451Xpkwsxs 01/08/2015 VITAMIN B12 INJECTION CPT-4: V5747Ogfptpk 01/08/2015 THER/PROPH/DIAG INJ SC/IM CPT-4: 40862Evvmwxo 12/25/2014 VITAMIN B12 INJECTION CPT-4: Y3781Dngcnim 12/25/2014 THER/PROPH/DIAG INJ SC/IM CPT-4: 84517Ecocrmo 12/10/2014 VITAMIN B12 INJECTION CPT-4: M3030Gzsksnh 12/10/2014 THER/PROPH/DIAG INJ SC/IM CPT-4: 05390Allkscl 11/26/2014 VITAMIN B12 INJECTION CPT-4: W6802Mbrqmdy 11/26/2014 THER/PROPH/DIAG INJ SC/IM CPT-4: 29841Wnzsckt 11/12/2014 VITAMIN B12 INJECTION CPT-4: G1208Pxzbzre 11/12/2014 THER/PROPH/DIAG INJ SC/IM CPT-4: 91341Ohnznce 10/28/2014 Vital Signs Date Vital 11/02/2016 Blood Pressure 1: 148/78 Code: 8480-6 BMI: 29.7 Code: 74440-0 Heart Rate 1: 87 bpm Height: 5'6" SpO2: 97% Weight: 184 lbs 09/29/2016 Blood Pressure 1: 128/78 Code: 8480-6 BMI: 29.7 Code: 71978-6 Heart Rate 1: 78 bpm Height: 5'6" SpO2: 98% Weight: 184 lbs 07/26/2016 Blood Pressure 1: 138/72 Code: 8480-6 BMI: 30.0 Code: 22980-4 Heart Rate 1: 85 bpm Height: 5'6" SpO2: 97% Weight: 186 lbs 05/30/2016 Blood Pressure 1: 132/76 Code: 8480-6 BMI: 30.0 Code: 11125-0 Heart Rate 1: 80 bpm Height: 5'6" SpO2: 98% Waist Measure (cm): 99 cm Weight: 186 lbs 05/25/2016 Blood Pressure 1: 13276 Code: 8480-6 BMI: 30.0 Code: 98548-3 Heart Rate 1: 80 bpm Height: 5'6" SpO2: 96% Weight: 186 lbs 02/25/2016 Blood Pressure 1: 110/64 Code: 8480-6 Heart Rate 1: 82 bpm Height: SpO2: 96% Weight: 01/25/2016 Blood Pressure 1: 118/70 Code: 8480-6 BMI: 30.0 Code: 82950-0 Heart Rate 1: 78 bpm Height: 5'6" SpO2: 97% Weight: 186 lbs 11/11/2015 Blood Pressure 1: 128/82 Code: 8480-6 BMI: 29.2 Code: 20601-1 Heart Rate 1: 86 bpm Height: 5'6" SpO2: 96% Temperature: 36.4 (C) / 97.6 (F) Weight: 181 lbs 10/12/2015 Blood Pressure 1: 118/70 Code: 8480-6 BMI: 29.2 Code: 24264-7 Heart Rate 1: 81 bpm Height: 5'6" SpO2: 95% Weight: 181 lbs 09/03/2015 Blood Pressure 1: 138/78 Code: 8480-6 BMI: 29.9 Code: 59120-1 Heart Rate 1: 88 bpm Height: 5'6" SpO2: 97% Weight: 185 lbs 05/19/2015 Blood Pressure 1: 146/78 Code: 8480-6 BMI: 30.0 Code: 50946-0 Heart Rate 1: 66 bpm Height: 5'6" SpO2: 97% Weight: 186 lbs 05/12/2015 Blood Pressure 1: 120/70 Code: 8480-6 BMI: 29.9 Code: 91882-4 Heart Rate 1: 89 bpm Height: 5'6" SpO2: 95% Weight: 185 lbs 01/13/2015 Blood Pressure 1: 140/90 Code: 8480-6 BMI: 30.3 Code: 77441-0 Heart Rate 1: 84 bpm Height: 5'6" SpO2: 95% Weight: 188 lbs 12/16/2014 Blood Pressure 1: 140/82 Code: 8480-6 BMI: 29.5 Code: 06040-1 Heart Rate 1: 86 bpm Height: 5'6" [...] data Encounters Encounter Performer Location Codes Date [id number] EST. PATIENT, LEVEL III Diagnosis: Low back pain[ICD10: M54.5] Diagnosis: Pain in thoracic spine[ICD10: M54.6] Brianna Vega MD, [facility] CPT- 4: 25043 11/02/2016 ([id number]) 15236 EST. PATIENT, LEVEL IV Diagnosis: Essential (primary) hypertension[ICD10: I10] Diagnosis: Other vitamin B12 deficiency anemias[ICD10: D51.8] Diagnosis: Generalized abdominal pain[ICD10: R10.84] Yarely Vega MD [facility] CPT-4: 36025 09/29/2016 ([id number]) 18969 EST. PATIENT, LEVEL IV Diagnosis: Essential (primary) hypertension[ICD10: I10] Yarely Vega MD [facility] CPT-4: 98549 07/26/2016 ([id number]) 08603 EST. PATIENT, LEVEL IV Diagnosis: Benign lipomatous neoplasm of skin and subcutaneous tissue of right leg[ICD10: D17.23] Diagnosis: Pain in right ankle and joints of right foot[ICD10: M25.571] Diagnosis: Encounter for immunization[ICD10: Z23] Diagnosis: Vitamin B12 deficiency anemia, unspecified[ICD10: D51.9] Yarely Vega MD, [facility] CPT-4: 99938 05/25/2016 43532 EST. PATIENT, LEVEL III Diagnosis: Other chest pain[ICD10: R07.89] Diagnosis: Other vitamin B12 deficiency anemias[ICD10: D51.8] Brianna Vega MD, [facility] CPT-4: 43665 02/25/2016 ([id number]) 25316 EST. 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 CPT-4: 98523 01/25/2016 [id number] EST. PATIENT, LEVEL III Diagnosis: Other vitamin B12 deficiency anemias[ICD10: D51.8] Diagnosis: Acute nasopharyngitis [common cold][ICD10: J00] Diagnosis: Other allergic rhinitis[ICD10: J30.89] Brianna Vega MD, [facility] CPT- 4: 26530 11/11/2015 ([id number]) 33073 EST. PATIENT, LEVEL IV Diagnosis: Essential tremor[ICD10: G25.0] Diagnosis: Chronic fatigue, unspecified[ICD10: R53.82] Diagnosis: Other hypersomnia[ICD10: G47.19] Diagnosis: Essential (primary) hypertension[ICD10: I10] Yarely Vega MD, [facility] CPT-4: 55762 10/12/2015 ([id number]) 01519 EST. PATIENT, LEVEL IV Diagnosis: Essential (primary) hypertension[ICD10: I10] Diagnosis: Chronic atrial fibrillation[ICD10: I48.2] Diagnosis: Abnormal levels of other serum enzymes[ICD10: R74.8] Diagnosis: Type 2 diabetes mellitus without complications[ICD10: E11.9] Diagnosis: Vitamin B12 deficiency anemia, unspecified[ICD10: D51.9] Yarely Vega MD, [facility] CPT-4: 67636 09/03/2015 ([id number]) 47557 EST. PATIENT, LEVEL III Diagnosis: Nausea[ICD10: R11.0] Diagnosis: Essential tremor[ICD10: G25.0] Diagnosis: Actinic keratosis[ICD10: L57.0] Yarely Vega MD, [facility] CPT-4: 28139 05/19/2015 ([id number]) 69752 EST. PATIENT, LEVEL IV Diagnosis: Vitamin B12 deficiency anemia, unspecified[ICD10: D51.9] Diagnosis: Chronic atrial fibrillation[ICD10: I48.2] Diagnosis: Headache[ICD10: R51] Diagnosis: Chronic fatigue, unspecified[ICD10: R53.82] Diagnosis: Cervicalgia[ICD10: M54.2] Yarely Vega MD, [facility] CPT-4: 96275 05/12/2015 ([id number]) 07531 EST. PATIENT, LEVEL IV Diagnosis: ESSENTIAL HYPERTENSION[ICD9: 401.9] Diagnosis: Afib[ICD9: 427.31] Diagnosis: Anxiety[ICD9: 300.00] Diagnosis: Insomnia[ICD9: 780.52] [facility] CPT-4: 99718 01/13/2015 ([id number]) OFFICE VISIT, NEW - LEVEL 4 Diagnosis: Hypothyroidism[ICD9: 244.9] Diagnosis: DIABETES TYPE II[ICD9: 250.00] Diagnosis: ESSENTIAL HYPERTENSION[ICD9: 401.9] Diagnosis: Afib[ICD9: 427.31] Diagnosis: Anxiety[ICD9: 300.00] Diagnosis: B12 deficiency[ICD9: 266.2] [facility] CPT-4: 43895 12/16/2014 Plan of Care Planned Activity Notes Codes Status Date Patient Education: Patient Medication Summary Completed 11/24/2016 [...] improve. 11/02/2016 Appointment: [phone] [place] (15 min) Moderate 11/02/2016 Patient Education: [...] carafate 09/29/2016 [phone] [place] ([facility] min) Moderate 09/29/2016 Patient Education: Patient Medication Summary Completed 09/29/2016 Appointment: [phone] [facility] [place] (15 min) Moderate 09/27/2016 Appointment: [phone] [facility] [place] (15 min) Moderate 09/20/2016 Appointment: [facility] [phone] [facility] [place] (15 min) Moderate 09/20/2016 Patient Education: Patient Medication Summary Completed 09/06/2016 Appointment: [facility] [phone] [facility] [place] (15 min) Moderate 08/30/2016 Appointment: [...] to call for acute concerns. 07/26/2016 Appointment: Meggan Vegay WPtel: [facility] [place] (15 min) Moderate 07/26/2016 Patient Education: [...] surrogate. 05/30/2016 Appointment: [phone] [facility] [facility] - Annual Wellness Visit 05/30/2016 [...] bedtime 05/25/2016 Appointment: [phone] [facility] (15 min) Moderate 05/25/2016 Patient Education: Patient Medication Summary Completed 05/25/2016 Patient Education: Obesity Completed 05/25/2016 Care Plan: Referral Order SNOMED-CT : [id number] Pending 05/25/2016 Appointment: Injection 05/10/2016 Patient Education: Patient Medication Summary Completed 05/10/2016 Appointment: Injection 04/26/2016 Patient Education: Patient Medication Summary Completed 04/26/2016 Appointment: Injection 04/11/2016 Patient Education: Patient Medication Summary Completed 04/11/2016 Appointment: Injection 03/31/2016 Patient Education: Patient Medication Summary Completed 03/31/2016 Patient Education: Patient Medication Summary Completed 03/22/2016 Care Plan: [employer] : 16580-0 Pending 03/22/2016 Appointment: Injection 03/15/2016 Patient Education: [...] any concerns. 02/25/2016 Appointment: Brianna Otoole WPtel[facility] (15 min) Moderate 02/25/2016 Patient Education: Patient [...] the patients recent sleep study - recommended [place] patient eval of pt - nocturnal [...] the patients recent sleep study - recommended [place] patient eval of pt - nocturnal oxygen [...] case with Faiza's daughter who had left [facility]. She is interested in looking at assisted living facilities for her mom as Faiza's family is for assisted living placement sooner rather than later. 10/12/2015 Appointment: Yarely Vega WPtel: [phone] [facility] (15 min) Moderate 10/12/2015 Patient Education: Patient [...] Completed 08/17/2015 Appointment: [phone] [facility] [place] (15 min) Moderate 08/11/2015 Appointment: [...] 2 05/19/2015 Appointment: [facility] [phone] [facility] (30 min) [facility] 05/19/2015 Patient Education: Patient Medication Summary [...] prn alprazolam. 01/13/2015 Appointment: Yarely Vega WPtel: [address] [place], [place] [address] (15 min) Moderate 01/13/2015 Patient Education: Patient [...] current medications. 12/16/2014 Appointment: Janet Fam [facility]Ptel: [phone] [place] New Patient 12/16/2014 Patient Education: [...] case with Faiza's daughter who had left [facility]. She is interested in looking [...] the patients recent sleep study - recommended [place] patient eval of pt - nocturnal [...] the patients recent sleep study - recommended [place] patient eval of pt - nocturnal [...]
--- OUTSIDE RECORDS SUMMARY | 2018-12-05 16:37 | XMS REPORT | CCD ---
Author Author [facility] Organization [facility] Address [address] [place] [address] Phone Care Team Providers Care Relief Captain Name Role Phone PP Unavailable CCM Unavailable Summary Purpose Interface Exchange Insurance Providers Payer name Policy type / Coverage type Covered republican ID Effective Begin Date Effective End Date WPS Medicare Part B Medicare Part B [id number] Unknown Principal Life Insurance Medicare Part B [id number] Unknown [employer] in [place] Medicare Part B [id number] Unknown Family history Brother Diagnosis Age At Onset Heart Attack Unknown Mother Diagnosis Age At Onset Hypertension Unknown kidney disease Unknown Stroke Unknown Father Diagnosis Age At Onset Arthritis Unknown Social History Social History Element Codes Description Effective Dates Employment Unknown Retired worked at [employer] 11/20/2017 Marital status Unknown Single 12/16/[address]: 7527849 Former smoker 12/16/[address]: 403726089 Never drinks alcohol 12/16/2014 Allergies, Adverse Reactions, Alerts Substance Reaction Codes Entered Date Inactivated Date Status CODEINE RxNorm: 2670 05/25/2016 No Inactive Date Active ciprofloxacin RxNorm: 02901 12/16/2014 No Inactive Date Active MORPHINE SULFATE [...] ICD-9: 250.00 ICD-10: E11.9 Active 12/15/2014 Unknown Vitamin B12 deficiency anemia, unspecified ICD-9: 281.1 ICD-10: D51.9 Active 06/21/2016 Unknown Acute bronchitis due to other specified [...] complications ICD-9: 250.00 ICD-10: E11.9 12/15/2014 Active Vitamin B12 deficiency anemia, unspecified ICD-9: 281.1 ICD-10: D51.9 06/21/2016 Active Acute bronchitis due to other specified [...] (vit B-12) 1,000 mcg/mL injection solution RxNorm: 077915 Milliliter(s) Inj 10/10/2018 10/10/2018 Inactive Flonase Allergy Relief 50 mcg/actuation nasal spray,suspension RxNorm: 5642742 [place] 1 [place] NASAL BID 10/08/2018 04/05/2019 Active cyanocobalamin (vit B-12) 1,000 mcg/mL injection solution RxNorm: 080269 Milliliter(s) Inj 09/27/2018 09/27/2018 Inactive levothyroxine 137 mcg tablet RxNorm: 175314 1 Tablet(s) PO daily 09/12/2018 03/10/2019 Active levothyroxine 137 mcg tablet RxNorm: 527833 1 Tablet(s) PO daily 09/12/2018 09/11/2018 Inactive cyanocobalamin (vit B-12) 1,000 mcg/mL injection solution RxNorm: 219790 Milliliter(s) Inj 09/11/2018 09/11/2018 Inactive levothyroxine 125 mcg tablet RxNorm: 915496 TAKE 1 TABLET BY MOUTH EVERY DAY 09/10/2018 09/11/2018 Inactive Generic For:SYNTHROID 125MCG TAB 09/10/2018 12:06:52 PM cyanocobalamin (vit B-12) 1,000 mcg/mL injection solution RxNorm: 577458 Milliliter(s) Inj 08/29/2018 08/29/2018 Inactive alprazolam 0.25 mg tablet RxNorm: 891542 1 Tablet(s) PO BID 08/21/2018 02/16/2019 Active hydrocodone 5 mg-acetaminophen 325 mg tablet RxNorm: 128078 1-2 Tablet(s) PO Q6 as needed for pain to use for severe pain only 08/20/2018 09/18/2018 Inactive albuterol sulfate 2.5 mg/3 mL (0.083 %) solution for nebulization RxNorm: 398091 3 Milliliter(s) INH Q6 PRN 08/15/2018 No Stop Date Active Aricept 10 mg tablet RxNorm: 182289 1 Tablet(s) PO daily 08/15/2018 08/09/2019 Active liothyronine 5 mcg tablet RxNorm: 438407 Tablet(s) TAKE 1 TABLET BY MOUTH TWICE DAILY 08/15/2018 02/10/2019 Active cyanocobalamin (vit B-12) 1,000 mcg/mL injection solution RxNorm: 586726 Milliliter(s) Inj 08/15/2018 08/15/2018 Inactive Kenalog 40 mg/mL suspension for injection RxNorm: 9928009 Milliliter(s) Inj 08/15/2018 08/15/2018 Inactive doxycycline hyclate 100 mg capsule RxNorm: 9346219 1 Capsule(s) PO BID 08/15/2018 08/24/2018 Inactive cyanocobalamin (vit B-12) 1,000 mcg/mL injection solution RxNorm: 774852 Milliliter(s) Inj 08/01/2018 08/01/2018 Inactive cyanocobalamin (vit B-12) 1,000 mcg/mL injection solution RxNorm: 101985 Milliliter(s) Inj 07/19/2018 07/19/2018 Inactive hydrocodone 5 mg-acetaminophen 325 mg tablet RxNorm: 859689 1-2 Tablet(s) PO Q6 as needed for pain 07/18/2018 08/15/2018 Inactive betamethasone valerate 0.1 % topical ointment RxNorm: 666935 1 TOP BID 07/04/2018 07/03/2018 Inactive applying to skin under nose x 10 days cyanocobalamin (vit B-12) 1,000 mcg/mL injection solution RxNorm: 452358 Milliliter(s) Inj 07/04/2018 07/04/2018 Inactive betamethasone valerate 0.1 % topical ointment RxNorm: 853188 1 TOP BID 07/04/2018 07/13/2018 Inactive applying to skin under nose x 10 days Aricept 10 mg tablet RxNorm: 509311 Tablet(s) 1 Tablet(s) PO daily 06/25/2018 08/14/2018 Inactive cyanocobalamin (vit B-12) 1,000 mcg/mL injection solution RxNorm: 882360 Milliliter(s) Inj 06/20/2018 06/20/2018 Inactive hydrocodone 5 mg-acetaminophen 325 mg tablet RxNorm: 796469 1-2 Tablet(s) PO Q6 as needed for pain 06/20/2018 07/17/2018 Inactive Flonase Allergy Relief 50 mcg/actuation nasal spray,suspension RxNorm: 1683965 [place] 1 [place] NASAL BID 06/20/2018 10/07/2018 Inactive cyanocobalamin (vit B-12) 1,000 mcg/mL injection solution RxNorm: 440943 Milliliter(s) Inj 06/06/2018 06/06/2018 Inactive alprazolam 0.25 mg tablet RxNorm: 790313 1 Tablet(s) PO BID 05/25/2018 08/21/2018 Inactive hydrocodone 5 mg-acetaminophen 325 mg tablet RxNorm: 058511 1-2 Tablet(s) PO Q6 as needed for pain 05/24/2018 06/19/2018 Inactive cyanocobalamin (vit B-12) 1,000 mcg/mL injection solution RxNorm: 537404 Milliliter(s) Inj 05/24/2018 05/24/2018 Inactive cyanocobalamin (vit B-12) 1,000 mcg/mL injection solution RxNorm: 662287 Milliliter(s) Inj 05/09/2018 05/09/2018 Inactive Claritin 10 mg tablet RxNorm: 241227 TAKE 1 TABLET BY MOUTH ONCE DAILY 05/08/2018 05/02/2019 Active Generic For:CLARITIN 10MG 05/07/2018 9:13:47 AM cyanocobalamin (vit B-12) 1,000 mcg/mL injection solution RxNorm: 446283 INJECT ONE 1 ML EVERY TWO WEEKS 05/03/2018 04/03/2019 Active 05/03/2018 9:13:42 AM Mobic 15 mg tablet RxNorm: 572509 Tablet(s) 1 Tablet(s) PO daily 04/26/2018 04/20/2019 Active buspirone 15 mg tablet RxNorm: 936344 Tablet(s) TAKE 1 TABLET BY MOUTH TWICE DAILY 04/26/2018 04/20/2019 Active Generic For:BUSPAR 15MG 05/31/2017 9:19:20 AM Norvasc 5 mg tablet RxNorm: 553996 Tablet(s) 1 Tablet(s) PO daily 04/26/2018 04/20/2019 Active cyanocobalamin (vit B-12) 1,000 mcg/mL injection solution RxNorm: 898678 Milliliter(s) Inj 04/26/2018 04/26/2018 Inactive hydrocodone 5 mg-acetaminophen 325 mg tablet RxNorm: 616869 1-2 Tablet(s) PO Q6 as needed for pain 04/25/2018 05/23/2018 Inactive cyanocobalamin (vit B-12) 1,000 mcg/mL injection solution RxNorm: 889410 Milliliter(s) Inj 04/12/2018 04/12/2018 Inactive Topamax 25 mg tablet RxNorm: 186656 1 Tablet(s) PO BID 04/09/2018 05/02/2018 Inactive Generic For:TOPAMAX 25MG 12/06/2016 9:15:13 AM Zoloft 50 mg tablet RxNorm: 483242 TAKE 1 TABLET BY MOUTH ONCE DAILY 04/04/2018 12/29/2018 Active Generic For:ZOLOFT 50MG 04/04/2018 9:13:25 AM cyanocobalamin (vit B-12) 1,000 mcg/mL injection solution RxNorm: 755091 Milliliter(s) Inj 03/30/2018 03/30/2018 Inactive levothyroxine 125 mcg tablet RxNorm: 515806 TAKE 1 TABLET BY MOUTH EVERY DAY 03/26/2018 09/09/2018 Inactive Generic For:SYNTHROID 125MCG TAB 03/26/2018 9:15:59 AM liothyronine 5 mcg tablet RxNorm: 456254 TAKE 1 TABLET BY MOUTH TWICE DAILY 03/26/2018 08/14/2018 Inactive Generic For:CYTOMEL 5MCG 03/26/2018 9:15:54 AM hydrocodone 5 mg-acetaminophen 325 mg tablet RxNorm: 004397 1-2 Tablet(s) PO Q6 as needed for pain 03/19/2018 04/17/2018 Inactive cyanocobalamin (vit B-12) 1,000 mcg/mL injection solution RxNorm: 484623 Milliliter(s) Inj 03/16/2018 03/16/2018 Inactive Flonase Allergy Relief 50 mcg/actuation nasal spray,suspension RxNorm: 5900730 1 [place] NASAL BID 03/05/2018 06/19/2018 Inactive cyanocobalamin (vit B-12) 1,000 mcg/mL injection solution RxNorm: 595220 Milliliter(s) Inj 03/02/2018 03/02/2018 Inactive alprazolam 0.25 mg tablet RxNorm: 303215 1 Tablet(s) PO BID 02/28/2018 05/27/2018 Inactive cyanocobalamin (vit B-12) 1,000 mcg/mL injection solution RxNorm: 670844 Milliliter(s) Inj 02/08/2018 02/08/2018 Inactive cyanocobalamin (vit B-12) 1,000 mcg/mL injection solution RxNorm: 122971 Milliliter(s) Inj 01/24/2018 01/24/2018 Inactive albuterol sulfate 2.5 mg/3 mL (0.083 %) solution for nebulization RxNorm: 635120 3 Milliliter(s) INH Q6 PRN 01/24/2018 05/02/2018 Inactive Claritin 10 mg tablet RxNorm: 229995 1 Tablet(s) PO daily 01/15/2018 05/07/2018 Inactive cyanocobalamin (vit B-12) 1,000 mcg/mL injection solution RxNorm: 018903 Milliliter(s) Inj 01/10/2018 01/10/2018 Inactive hydrocodone 5 mg-acetaminophen 325 mg tablet RxNorm: 885485 1-2 Tablet(s) PO Q6 as needed for pain 01/09/2018 02/07/2018 Inactive cyanocobalamin (vit B-12) 1,000 mcg/mL injection solution RxNorm: 248303 Milliliter(s) Inj 12/27/2017 12/27/2017 Inactive cyanocobalamin (vit B-12) 1,000 mcg/mL injection solution RxNorm: 181576 1 Milliliter(s) Inj 12/12/2017 12/12/2017 Inactive Zofran ODT 4 mg disintegrating tablet RxNorm: 694332 1 Tablet(s) PO TID as needed 12/08/2017 12/09/2017 Inactive hydrocodone 2.5 mg-guaifenesin 200 mg/5 mL oral solution RxNorm: 514684 5 Milliliter(s) PO 12/04/2017 05/06/2018 Inactive doxycycline hyclate 100 mg capsule RxNorm: 9606726 1 Capsule(s) PO BID 12/04/2017 12/13/2017 Inactive cyanocobalamin (vit B-12) 1,000 mcg/mL injection solution RxNorm: 320293 Milliliter(s) Inj 12/01/2017 12/01/2017 Inactive Flonase Allergy Relief 50 mcg/actuation nasal spray,suspension RxNorm: 8225029 1 [place] NASAL BID 11/20/2017 2018 Inactive cyanocobalamin (vit B-12) 1,000 mcg/mL injection solution RxNorm: 554593 1 Milliliter(s) Inj 11/17/2017 11/17/2017 Inactive hydrocodone 5 mg-acetaminophen 325 mg tablet RxNorm: 215735 1-2 Tablet(s) PO Q6 as needed for pain 11/16/2017 12/15/2017 Inactive cyanocobalamin (vit B-12) 1,000 mcg/mL injection solution RxNorm: 509753 1 Milliliter(s) Inj 11/02/2017 11/02/2017 Inactive hydrocodone 5 mg-acetaminophen 325 mg tablet RxNorm: 125837 1-2 Tablet(s) PO Q6 as needed for pain 10/25/2017 11/15/2017 Inactive Claritin 10 mg tablet RxNorm: 434347 1 Tablet(s) PO daily 10/25/2017 11/19/2017 Inactive albuterol sulfate 2.5 mg/3 mL (0.083 %) solution for nebulization RxNorm: 431055 3 Milliliter(s) INH Q6 PRN 10/25/2017 01/23/2018 Inactive Claritin 10 mg tablet RxNorm: 936236 1 Tablet(s) PO daily 10/25/2017 10/24/2017 Inactive cyanocobalamin (vit B-12) 1,000 mcg/mL injection solution RxNorm: 486471 1 Milliliter(s) Inj 10/20/2017 10/20/2017 Inactive Zoloft 50 mg tablet RxNorm: 603674 TAKE 1 TABLET BY MOUTH ONCE DAILY 10/13/2017 04/03/2018 Inactive Generic For:ZOLOFT 50MG 10/13/2017 8:59:44 AM cyanocobalamin (vit B-12) 1,000 mcg/mL injection solution RxNorm: 679290 Milliliter(s) Inj 10/06/2017 10/06/2017 Inactive liothyronine 5 mcg tablet RxNorm: 087056 TAKE 1 TABLET BY MOUTH TWICE DAILY 10/03/2017 03/25/2018 Inactive Generic For:CYTOMEL 5MCG 10/03/2017 9:13:38 AM cyanocobalamin (vit B-12) 1,000 mcg/mL injection solution RxNorm: 253777 Milliliter(s) Inj 09/21/2017 09/21/2017 Inactive albuterol sulfate 2.5 mg/3 mL (0.083 %) solution for nebulization RxNorm: 939136 3 Milliliter(s) INH Q6 PRN 09/21/2017 10/24/2017 Inactive hydrocodone 5 mg-acetaminophen 325 mg tablet RxNorm: 687097 1-2 Tablet(s) PO Q6 as needed for pain 09/21/2017 10/20/2017 Inactive Kenalog 40 mg/mL suspension for injection RxNorm: 7781132 Milliliter(s) Inj 09/15/2017 09/15/2017 Inactive Keflex 500 mg capsule RxNorm: 003694 1 Capsule(s) PO TID 09/07/2017 09/16/2017 Inactive Please deliver to patient cyanocobalamin (vit B-12) 1,000 mcg/mL injection solution RxNorm: 368093 Milliliter(s) Inj 09/07/2017 09/07/2017 Inactive alprazolam 0.25 mg tablet RxNorm: 571822 1 Tablet(s) PO BID 09/06/2017 02/27/2018 Inactive Aricept 10 mg tablet RxNorm: 663343 1 Tablet(s) PO daily 09/06/2017 06/24/2018 Inactive hydrocodone 5 mg-acetaminophen 325 mg tablet RxNorm: 598690 1-2 Tablet(s) PO Q6 as needed for pain 08/24/2017 09/20/2017 Inactive cyanocobalamin (vit B-12) 1,000 mcg/mL injection solution RxNorm: 135588 Milliliter(s) Inj 08/24/2017 08/24/2017 Inactive Norvasc 5 mg tablet RxNorm: 621118 1 Tablet(s) PO daily 08/18/2017 04/25/2018 Inactive nystatin 100,000 unit/gram topical powder RxNorm: 081678 1 Gram(s) TOP QID 08/17/2017 08/26/2017 Inactive hydrocodone 5 mg-acetaminophen 325 mg tablet RxNorm: 721852 1-2 Tablet(s) PO Q6 as needed for pain 07/25/2017 08/23/2017 Inactive Tamiflu 75 mg capsule RxNorm: 158194 1 Capsule(s) PO BID 07/24/2017 12/11/2017 Inactive nystatin 100,000 unit/gram topical powder RxNorm: 158720 1 Gram(s) TOP QID 07/14/2017 07/22/2017 Inactive levothyroxine 125 mcg tablet RxNorm: 427427 Tablet(s) 1 Tablet(s) PO daily 07/10/2017 01/05/2018 Inactive nystatin 100,000 unit/gram topical powder RxNorm: 527383 1 Gram(s) TOP QID 07/06/2017 07/13/2017 Inactive cyanocobalamin (vit B-12) 1,000 mcg/mL injection solution RxNorm: 851155 Milliliter(s) Inj 07/06/2017 07/06/2017 Inactive Kenalog 40 mg/mL suspension for injection RxNorm: 9265825 1 Milliliter(s) Inj 06/20/2017 06/20/2017 Inactive doxycycline hyclate 100 mg capsule RxNorm: 5812469 1 Capsule(s) PO BID 06/20/2017 06/26/2017 Inactive cyanocobalamin (vit B-12) 1,000 mcg/mL injection solution RxNorm: 528838 Milliliter(s) Inj 06/20/2017 06/20/2017 Inactive Keflex 500 mg capsule RxNorm: 676193 1 Capsule(s) PO TID 06/14/2017 06/23/2017 Inactive Please deliver to patient Mobic 15 mg tablet RxNorm: 250102 1 Tablet(s) PO daily 06/14/2017 04/25/2018 Inactive cyanocobalamin (vit B-12) 1,000 mcg/mL injection solution RxNorm: 227281 Milliliter(s) Inj 06/05/2017 06/05/2017 Inactive buspirone 15 mg tablet RxNorm: 784320 TAKE 1 TABLET BY MOUTH TWICE DAILY 05/31/2017 04/25/2018 Inactive Generic For:BUSPAR 15MG 05/31/2017 9:19:20 AM cyanocobalamin (vit B-12) 1,000 mcg/mL injection solution RxNorm: 661425 Milliliter(s) Inj 05/25/2017 05/25/2017 Inactive hydrocodone 5 mg-acetaminophen 325 mg tablet RxNorm: 319023 1-2 Tablet(s) PO Q6 as needed for pain 05/25/2017 06/23/2017 Inactive amiodarone 200 mg tablet RxNorm: 242746 1/2 Tablet(s) PO daily 05/22/2017 No Stop Date Active cardiology decreased to 100mg daily cyanocobalamin (vit B-12) 1,000 mcg/mL injection solution RxNorm: 464700 Milliliter(s) Inj 05/16/2017 05/16/2017 Inactive Zofran ODT 4 mg disintegrating tablet RxNorm: 293471 1 Tablet(s) PO TID as needed 05/03/2017 05/04/2017 Inactive hydrocodone 5 mg-acetaminophen 325 mg tablet RxNorm: 273416 1-2 Tablet(s) PO Q6 as needed for pain 05/01/2017 05/05/2017 Inactive cyanocobalamin (vit B-12) 1,000 mcg/mL injection solution RxNorm: 445479 1 Milliliter(s) Inj 05/01/2017 05/01/2017 Inactive cyanocobalamin (vit B-12) 1,000 mcg/mL injection solution RxNorm: 313255 INJECT ONE 1 ML EVERY TWO WEEKS 04/26/2017 12/04/2018 Active 04/26/2017 9:08:52 AM Zoloft 50 mg tablet RxNorm: 286835 Tablet(s) TAKE 1 TABLET BY MOUTH DAILY 04/25/2017 10/12/2017 Inactive Generic For:ZOLOFT 50MG cyanocobalamin (vit B-12) 1,000 mcg/mL injection solution RxNorm: 575670 Milliliter(s) Inj 04/18/2017 04/18/2017 Inactive liothyronine 5 mcg tablet RxNorm: 858921 1 Tablet(s) PO BID 04/13/2017 10/02/2017 Inactive cyanocobalamin (vit B-12) 1,000 mcg/mL injection solution RxNorm: 551369 Milliliter(s) Inj 04/06/2017 04/06/2017 Inactive hydrocodone 5 mg-acetaminophen 325 mg tablet RxNorm: 471713 1-2 Tablet(s) PO Q6 as needed for pain 04/06/2017 04/10/2017 Inactive cyanocobalamin (vit B-12) 1,000 mcg/mL injection solution RxNorm: 705997 Milliliter(s) Inj 03/22/2017 03/22/2017 Inactive alprazolam 0.25 mg tablet RxNorm: 263962 1 Tablet(s) PO BID 03/17/2017 12/11/2017 Inactive alprazolam 0.25 mg tablet RxNorm: 729964 1 Tablet(s) PO BID 03/16/2017 09/05/2017 Inactive hydrocodone 5 mg-acetaminophen 325 mg tablet RxNorm: 602094 1-2 Tablet(s) PO Q6 as needed for pain 03/09/2017 03/13/2017 Inactive cyanocobalamin (vit B-12) 1,000 mcg/mL injection solution RxNorm: 992893 Milliliter(s) Inj 03/09/2017 03/09/2017 Inactive cyanocobalamin (vit B-12) 1,000 mcg/mL injection solution RxNorm: 934285 Milliliter(s) Inj 02/23/2017 02/23/2017 Inactive cyanocobalamin (vit B-12) 1,000 mcg/mL injection solution RxNorm: 200990 Milliliter(s) Inj 02/09/2017 02/09/2017 Inactive hydrocodone 5 mg-acetaminophen 325 mg tablet RxNorm: 967838 1-2 Tablet(s) PO Q6 as needed for pain 02/08/2017 02/12/2017 Inactive Topamax 25 mg tablet RxNorm: 523409 1 Tablet(s) PO BID 01/23/2017 05/22/2017 Inactive Generic For:TOPAMAX 25MG 12/06/2016 9:15:13 AM cyanocobalamin (vit B-12) 1,000 mcg/mL injection solution RxNorm: 599834 Milliliter(s) Inj 01/23/2017 01/23/2017 Inactive cyanocobalamin (vit B-12) 1,000 mcg/mL injection solution RxNorm: 012793 Milliliter(s) Inj 01/10/2017 01/10/2017 Inactive hydrocodone 5 mg-acetaminophen 325 mg tablet RxNorm: 692829 1-2 Tablet(s) PO Q6 as needed for pain 01/09/2017 01/13/2017 Inactive cyanocobalamin (vit B-12) 1,000 mcg/mL injection solution RxNorm: 527675 1 Milliliter(s) Inj 12/28/2016 12/28/2016 Inactive cyanocobalamin (vit B-12) 1,000 mcg/mL injection solution RxNorm: 351844 Milliliter(s) Inj 12/14/2016 12/14/2016 Inactive buspirone 15 mg tablet RxNorm: 010063 1 Tablet(s) PO BID 12/12/2016 05/30/2017 Inactive hydrocodone 5 mg-acetaminophen 325 mg tablet RxNorm: 917718 1-2 Tablet(s) PO Q6 as needed for pain 12/08/2016 12/12/2016 Inactive Topamax 25 mg tablet RxNorm: 245872 TAKE 1 TABLET BY MOUTH EVERY DAY AT BEDTIME 12/06/2016 01/22/2017 Inactive Generic For:TOPAMAX 25MG 12/06/2016 9:15:13 AM Lac-Hydrin Five 5 % lotion RxNorm: 228769 1 Gram(s) TOP daily 12/02/2016 05/02/2018 Inactive cyanocobalamin (vit B-12) 1,000 mcg/mL injection solution RxNorm: 168998 Milliliter(s) Inj 11/24/2016 11/24/2016 Inactive Ceftin 500 mg tablet RxNorm: 202047 1 Tablet(s) PO BID 11/11/2016 06/13/2017 Inactive Cipro 500 mg tablet RxNorm: 588928 1 Tablet(s) PO BID 11/11/2016 11/10/2016 Inactive Cipro 500 mg tablet RxNorm: 172748 1 Tablet(s) PO BID 11/11/2016 11/11/2016 Inactive cyanocobalamin (vit B-12) 1,000 mcg/mL injection solution RxNorm: 377578 1 Milliliter(s) Inj 11/07/2016 11/07/2016 Inactive hydrocodone 5 mg-acetaminophen 325 mg tablet RxNorm: 826701 1-2 Tablet(s) PO Q6 as needed for pain 11/02/2016 11/06/2016 Inactive cyanocobalamin (vit B-12) 1,000 mcg/mL injection solution RxNorm: 767733 Milliliter(s) Inj 10/24/2016 10/24/2016 Inactive levothyroxine 125 mcg tablet RxNorm: 107476 Tablet(s) 1 Tablet(s) PO daily 10/24/2016 04/21/2017 Inactive liothyronine 5 mcg tablet RxNorm: 571081 1 Tablet(s) PO BID 10/24/2016 04/12/2017 Inactive hydrocodone 5 mg-acetaminophen 325 mg tablet RxNorm: 111516 1-2 Tablet(s) PO Q6 as needed for pain 10/17/2016 10/21/2016 Inactive Keflex 500 mg capsule RxNorm: 231740 1 Capsule(s) PO TID 10/07/2016 10/06/2016 Inactive Keflex 500 mg capsule RxNorm: 658015 1 Capsule(s) PO TID 10/07/2016 10/16/2016 Inactive Please deliver to patient cyanocobalamin (vit B-12) 1,000 mcg/mL injection solution RxNorm: 928626 1 Milliliter(s) Inj 09/29/2016 09/29/2016 Inactive alprazolam 0.25 mg tablet RxNorm: 130939 1 Tablet(s) PO BID 09/20/2016 03/16/2017 Inactive Cozaar 100 mg tablet RxNorm: 028875 1 Tablet(s) PO daily 09/14/2016 No Stop Date Active metoprolol tartrate 50 mg tablet RxNorm: 094152 1/2 Tablet(s) PO BID 09/14/2016 12/12/2016 Inactive Zoloft 50 mg tablet RxNorm: 703946 Tablet(s) TAKE 1 TABLET BY MOUTH DAILY 09/14/2016 03/12/2017 Inactive Generic For:ZOLOFT 50MG liothyronine 5 mcg tablet RxNorm: 090248 1 Tablet(s) PO BID 09/14/2016 10/23/2016 Inactive Calmoseptine 0.44 %-20.6 % topical ointment RxNorm: 171628 1 Application TOP BID and as needed to sore on buttocks 09/07/2016 No Stop Date Active cyanocobalamin (vit B-12) 1,000 mcg/mL injection solution RxNorm: 321171 Milliliter(s) Inj 08/29/2016 08/29/2016 Inactive hydrocodone 5 mg-acetaminophen 325 mg tablet RxNorm: 158950 1-2 Tablet(s) PO Q6 as needed for pain 08/29/2016 10/16/2016 Inactive levothyroxine 125 mcg tablet RxNorm: 311455 1 Tablet(s) PO daily 08/25/2016 10/23/2016 Inactive Topamax 25 mg tablet RxNorm: 128955 TAKE 1 TABLET BY MOUTH EVERY DAY AT BEDTIME 08/17/2016 12/05/2016 Inactive Generic For:TOPAMAX 25MG 08/17/2016 2:14:37 PM hydrocodone 5 mg-acetaminophen 325 mg tablet RxNorm: 229658 1-2 Tablet(s) PO Q6 as needed for pain 08/11/2016 08/28/2016 Inactive hydrocodone 5 mg-acetaminophen 325 mg tablet RxNorm: 792914 1 -2 Tablet(s) PO Q6 as needed for pain 08/11/2016 08/18/2016 Inactive hydrocodone 5 mg-acetaminophen 325 mg tablet RxNorm: 331033 1 Tablet(s) PO Q6 as needed for pain 08/05/2016 08/10/2016 Inactive cyanocobalamin (vit B-12) 1,000 mcg/mL injection solution RxNorm: 979175 Milliliter(s) Inj 08/04/2016 08/04/2016 Inactive Norvasc 10 mg tablet RxNorm: 469667 1 Tablet(s) PO daily 07/26/2016 07/20/2017 Inactive alprazolam 0.25 mg tablet RxNorm: 535215 1 Tablet(s) PO QHS 07/21/2016 09/19/2016 Inactive Norvasc 5 mg tablet RxNorm: 582677 1 Tablet(s) PO daily 07/21/2016 07/25/2016 Inactive levothyroxine 125 mcg tablet RxNorm: 234894 1 Tablet(s) PO daily 07/21/2016 12/11/2017 Inactive cyanocobalamin (vit B-12) 1,000 mcg/mL injection solution RxNorm: 994370 Milliliter(s) Inj 07/21/2016 07/21/2016 Inactive Zoloft 50 mg tablet RxNorm: 830547 Tablet(s) TAKE 1 TABLET BY MOUTH DAILY 07/21/2016 09/13/2016 Inactive Generic For:ZOLOFT 50MG cyanocobalamin (vit B-12) 1,000 mcg/mL injection solution RxNorm: 784446 1 Milliliter(s) Inj 07/05/2016 07/05/2016 Inactive cyanocobalamin (vit B-12) 1,000 mcg/mL injection solution RxNorm: 739001 1 Milliliter(s) Inj 06/22/2016 06/22/2016 Inactive cyanocobalamin (vit B-12) 1,000 mcg/mL injection solution RxNorm: 403004 Milliliter(s) Inj 06/09/2016 06/09/2016 Inactive Aricept 10 mg tablet RxNorm: 997250 1 Tablet(s) PO daily 05/27/2016 05/21/2017 Inactive Mobic 15 mg tablet RxNorm: 993087 1 Tablet(s) PO daily 05/27/2016 05/21/2017 Inactive levothyroxine 125 mcg tablet RxNorm: 657323 1 Tablet(s) PO daily 05/25/2016 07/20/2016 Inactive cyanocobalamin (vit B-12) 1,000 mcg/mL injection solution RxNorm: 630801 1 Milliliter(s) Inj 05/25/2016 05/25/2016 Inactive doxycycline hyclate 100 mg capsule RxNorm: 0874508 1 Capsule(s) PO BID 05/16/2016 05/15/2016 Inactive doxycycline hyclate 100 mg capsule RxNorm: 9389542 1 Capsule(s) PO BID 05/16/2016 05/22/2016 Inactive cyanocobalamin (vit B-12) 1,000 mcg/mL injection solution RxNorm: 151001 Milliliter(s) Inj 05/10/2016 05/10/2016 Inactive cyanocobalamin (vit B-12) 1,000 mcg/mL injection solution RxNorm: 908690 Milliliter(s) Inj 04/26/2016 04/26/2016 Inactive Topamax 25 mg tablet RxNorm: 016133 1 Tablet(s) PO QPM 04/22/2016 08/16/2016 Inactive cyanocobalamin (vit B-12) 1,000 mcg/mL injection solution RxNorm: 779176 Milliliter(s) 1 Milliliter(s) Inj [id number] 04/11/2016 12/31/2017 Inactive liothyronine 5 mcg tablet RxNorm: 410790 1 Tablet(s) PO BID 04/11/2016 09/13/2016 Inactive cyanocobalamin (vit B-12) 1,000 mcg/mL injection solution RxNorm: 499287 Milliliter(s) Inj 04/11/2016 04/11/2016 Inactive cyanocobalamin (vit B-12) 1,000 mcg/mL injection solution RxNorm: 857108 Milliliter(s) Inj 03/31/2016 03/31/2016 Inactive cyanocobalamin (vit B-12) 1,000 mcg/mL injection solution RxNorm: 679304 1 Milliliter(s) Inj 03/15/2016 03/15/2016 Inactive levothyroxine 125 mcg tablet RxNorm: 572236 1 Tablet(s) PO daily 2016 03/03/2016 Inactive levothyroxine 125 mcg tablet RxNorm: 192751 1 Tablet(s) PO daily 2016 05/24/2016 Inactive cyanocobalamin (vit B-12) 1,000 mcg/mL injection solution RxNorm: 108092 Milliliter(s) Inj 02/25/2016 02/25/2016 Inactive cyanocobalamin (vit B-12) 1,000 mcg/mL injection solution RxNorm: 826454 1 Milliliter(s) Inj 02/02/2016 02/02/2016 Inactive sucralfate 1 gram tablet RxNorm: 473047 1 Tablet(s) PO QHS 01/25/2016 No Stop Date Active amiodarone 200 mg tablet RxNorm: 308784 1/2 Tablet(s) PO BID 01/25/2016 05/21/2017 Inactive cyanocobalamin (vit B-12) 1,000 mcg/mL injection solution RxNorm: 412131 Milliliter(s) Inj 01/18/2016 01/18/2016 Inactive cyanocobalamin (vit B-12) 1,000 mcg/mL injection solution RxNorm: 389581 Milliliter(s) Inj 12/29/2015 12/29/2015 Inactive Topamax 25 mg tablet RxNorm: 869986 1 Tablet(s) PO QPM 12/08/2015 04/05/2016 Inactive cyanocobalamin (vit B-12) 1,000 mcg/mL injection solution RxNorm: 881052 Milliliter(s) Inj 12/08/2015 12/08/2015 Inactive Bactrim DS 800 mg-160 mg tablet RxNorm: 445946 1 Tablet(s) PO BID 11/23/2015 11/22/2015 Inactive cyanocobalamin (vit B-12) 1,000 mcg/mL injection solution RxNorm: 323009 Milliliter(s) Inj 11/23/2015 11/23/2015 Inactive Bactrim DS 800 mg-160 mg tablet RxNorm: 878894 1 Tablet(s) PO BID 11/23/2015 11/29/2015 Inactive cyanocobalamin (vit B-12) 1,000 mcg/mL injection solution RxNorm: 539030 Milliliter(s) Inj 11/11/2015 11/11/2015 Inactive amoxicillin 500 mg capsule RxNorm: 924487 1 Capsule(s) PO TID 11/10/2015 11/19/2015 Inactive Zithromax Z-Henrique 250 mg tablet RxNorm: 559939 1 Tablet(s) PO UD 11/10/2015 01/24/2016 Inactive zpack x 1 amoxicillin 500 mg capsule RxNorm: 856417 1 Capsule(s) PO TID 11/10/2015 11/09/2015 Inactive cyanocobalamin (vit B-12) 1,000 mcg/mL injection solution RxNorm: 750569 1 Milliliter(s) Inj 10/29/2015 10/29/2015 Inactive [place] 3 capsule RxNorm: 1 Capsule(s) PO QAM , 2 Capsules at noon, 1 Capsule QHS 10/13/2015 No Stop Date Active potassium chloride ER 20 mEq tablet,extended release RxNorm: 796337 2 Tablet(s) PO daily at noon 10/13/2015 No Stop Date Active alprazolam 0.25 mg tablet RxNorm: 472920 1 Tablet(s) PO QHS 10/13/2015 07/20/2016 Inactive amiodarone 200 mg tablet RxNorm: 618318 1 Tablet(s) PO BID 10/13/2015 01/24/2016 Inactive cyanocobalamin (vit B-12) 1,000 mcg/mL injection solution RxNorm: 493072 1 Milliliter(s) Inj 10/12/2015 10/12/2015 Inactive Zofran 4 mg tablet RxNorm: 264613 1 Tablet(s) PO daily as needed 10/07/2015 05/24/2016 Inactive Zoloft 50 mg tablet RxNorm: 174998 TAKE 1 TABLET BY MOUTH DAILY 10/05/2015 05/01/2016 Inactive Generic For:ZOLOFT 50MG cyanocobalamin (vit B-12) 1,000 mcg/mL injection solution RxNorm: 338715 1 Milliliter(s) Inj 09/29/2015 09/29/2015 Inactive cyanocobalamin (vit B-12) 1,000 mcg/mL injection solution RxNorm: 655222 1 Milliliter(s) Inj 09/17/2015 09/17/2015 Inactive Norvasc 5 mg tablet RxNorm: 946388 1 Tablet(s) PO daily 09/17/2015 07/20/2016 Inactive liothyronine 5 mcg tablet RxNorm: 903793 1 Tablet(s) PO BID 09/17/2015 03/14/2016 Inactive Zoloft 50 mg tablet RxNorm: 651625 1 Tablet(s) PO daily 09/17/2015 10/04/2015 Inactive buspirone 15 mg tablet RxNorm: 422841 1 Tablet(s) PO BID 09/17/2015 09/10/2016 Inactive buspirone 15 mg tablet RxNorm: 750345 1 Tablet(s) PO BID 09/14/2015 09/16/2015 Inactive Topamax 25 mg tablet RxNorm: 272432 1 Tablet(s) PO QPM 09/03/2015 12/07/2015 Inactive cyanocobalamin (vit B-12) 1,000 mcg/mL injection solution RxNorm: 656984 1 Milliliter(s) Inj 09/03/2015 09/03/2015 Inactive cyanocobalamin (vit B-12) 1,000 mcg/mL injection solution RxNorm: 781526 Milliliter(s) Inj 08/17/2015 08/17/2015 Inactive cyanocobalamin (vit B-12) 1,000 mcg/mL injection solution RxNorm: 139482 Milliliter(s) Inj 08/06/2015 08/06/2015 Inactive levothyroxine 150 mcg tablet RxNorm: 587578 1 Tablet(s) PO daily 07/22/2015 03/03/2016 Inactive Aricept 10 mg tablet RxNorm: 039219 1 Tablet(s) PO daily 07/22/2015 05/26/2016 Inactive Mobic 15 mg tablet RxNorm: 321705 1 Tablet(s) PO daily 07/22/2015 05/26/2016 Inactive cyanocobalamin (vit B-12) 1,000 mcg/mL injection solution RxNorm: 289745 Milliliter(s) Inj 07/22/2015 07/22/2015 Inactive liothyronine 5 mcg tablet RxNorm: 786362 1 Tablet(s) PO BID 07/22/2015 09/16/2015 Inactive cyanocobalamin (vit B-12) 1,000 mcg/mL injection solution RxNorm: 036601 Milliliter(s) Inj 07/08/2015 07/08/2015 Inactive cyanocobalamin (vit B-12) 1,000 mcg/mL injection solution RxNorm: 909291 Milliliter(s) Inj 06/23/2015 06/23/2015 Inactive cyanocobalamin (vit B-12) 1,000 mcg/mL injection solution RxNorm: 303425 1 Milliliter(s) Inj 06/08/2015 06/08/2015 Inactive cyanocobalamin (vit B-12) 1,000 mcg/mL injection solution RxNorm: 063579 Milliliter(s) Inj 05/27/2015 05/27/2015 Inactive Aricept 10 mg tablet RxNorm: 883534 1 Tablet(s) PO daily 05/20/2015 07/21/2015 Inactive Zofran 4 mg tablet RxNorm: 611348 1 Tablet(s) PO daily as needed 05/20/2015 06/18/2015 Inactive alprazolam 0.25 mg tablet RxNorm: 369764 1 Tablet(s) PO BID 05/20/2015 10/12/2015 Inactive Mobic 15 mg tablet RxNorm: 601055 1 Tablet(s) PO daily 05/20/2015 07/21/2015 Inactive tramadol ER 100 mg tablet,extended release 24 hr RxNorm: 244980 1 Tablet(s) PO Q6 as needed 05/13/2015 No Stop Date Active cyanocobalamin (vit B-12) 1,000 mcg/mL injection solution RxNorm: 842791 1 Milliliter(s) Inj 05/12/2015 05/12/2015 Inactive Topamax 25 mg tablet RxNorm: 994994 1 Tablet(s) PO BID (start at one pill at bedtime x 1week then twice daily thereafter) 05/12/2015 09/02/2015 Inactive cyanocobalamin (vit B-12) 1,000 mcg/mL injection kit RxNorm: 621939 kit Inj 04/30/2015 04/30/2015 Inactive cyanocobalamin (vit B-12) 1,000 mcg/mL injection solution RxNorm: 524415 Milliliter(s) Inj 04/16/2015 04/16/2015 Inactive levothyroxine 150 mcg tablet RxNorm: 652045 1 Tablet(s) PO daily 04/08/2015 07/21/2015 Inactive cyanocobalamin (vit B-12) 1,000 mcg/mL injection solution RxNorm: 934392 Milliliter(s) 1 Milliliter(s) Inj [id number] 04/08/2015 04/10/2016 Inactive Cytomel 5 mcg tablet RxNorm: 430227 1 Tablet(s) PO BID 04/08/2015 10/12/2015 Inactive Cytomel 5 mcg tablet RxNorm: 678199 1 Tablet(s) PO BID 04/07/2015 04/07/2015 Inactive Cytomel 5 mcg tablet RxNorm: 916376 1 Tablet(s) PO BID 04/07/2015 04/06/2015 Inactive cyanocobalamin (vit B-12) 1,000 mcg/mL injection solution RxNorm: 192491 Milliliter(s) Inj 04/02/2015 04/02/2015 Inactive cyanocobalamin (vit B-12) 1,000 mcg/mL injection solution RxNorm: 379105 Milliliter(s) Inj 03/18/2015 03/18/2015 Inactive cyanocobalamin (vit B-12) 1,000 mcg/mL injection solution RxNorm: 668047 Milliliter(s) 1 Milliliter(s) Inj [id number] 03/18/2015 04/07/2015 Inactive cyanocobalamin (vit B-12) 1,000 mcg/mL injection solution RxNorm: 464819 1 Milliliter(s) Inj [id number] 03/16/2015 03/17/2015 Inactive cyanocobalamin (vit B-12) 1,000 mcg/mL injection solution RxNorm: 265684 Milliliter(s) Inj 03/03/2015 03/03/2015 Inactive cyanocobalamin (vit B-12) 1,000 mcg/mL injection solution RxNorm: 862737 Milliliter(s) Inj 02/18/2015 02/18/2015 Inactive cyanocobalamin (vit B-12) 1,000 mcg/mL injection solution RxNorm: 945687 Milliliter(s) Inj 02/04/2015 02/04/2015 Inactive cyanocobalamin (vit B-12) 1,000 mcg/mL injection solution RxNorm: 386309 Milliliter(s) Inj 01/22/2015 01/22/2015 Inactive Lac-Hydrin Five 5 % lotion RxNorm: 235300 1 TOP daily 01/13/2015 03/13/2015 Inactive Lac-Hydrin Five 5 % lotion RxNorm: 489324 1 TOP daily 01/13/2015 01/12/2015 Inactive cyanocobalamin (vit B-12) 1,000 mcg/mL injection solution RxNorm: 148953 Milliliter(s) Inj 01/08/2015 01/08/2015 Inactive cyanocobalamin (vit B-12) 1,000 mcg/mL injection solution RxNorm: 329504 Milliliter(s) Inj 12/25/2014 12/25/2014 Inactive levothyroxine 150 mcg tablet RxNorm: 691408 1 Tablet(s) PO daily 12/24/2014 04/07/2015 Inactive tramadol 50 mg tablet RxNorm: 974930 1-2 Tablet(s) PO Q6 as needed 12/17/2014 05/12/2015 Inactive alprazolam 0.25 mg tablet RxNorm: 846180 1 Tablet(s) PO BID 12/17/2014 04/15/2015 Inactive Pradaxa 150 mg capsule RxNorm: 5271159 1 Capsule(s) PO BID 12/16/2014 No Stop Date Active metoprolol tartrate 50 mg tablet RxNorm: 527335 1/2 Tablet(s) PO BID 12/16/2014 09/13/2016 Inactive buspirone 15 mg tablet RxNorm: 033502 1 Tablet(s) PO BID 12/16/2014 09/13/2015 Inactive cyanocobalamin (vit B-12) 1,000 mcg/mL injection solution RxNorm: 299082 1 Milliliter(s) Inj P4anvem 12/16/2014 03/15/2015 Inactive cyanocobalamin (vit B-12) 1,000 mcg/mL injection solution RxNorm: 492136 1 Milliliter(s) Inj B5xniek 12/16/2014 12/15/2014 Inactive sucralfate 1 gram tablet RxNorm: 293802 Tablet(s) PO QID 12/16/2014 12/10/2015 Inactive cyanocobalamin (vit B-12) 1,000 mcg/mL injection solution RxNorm: 885948 Milliliter(s) Inj 12/10/2014 12/10/2014 Inactive cyanocobalamin (vit B-12) 1,000 mcg/mL injection solution RxNorm: 114450 Milliliter(s) Inj 11/26/2014 11/26/2014 Inactive Zoloft 50 mg tablet RxNorm: 086764 1 Tablet(s) PO daily 11/24/2014 06/21/2015 Inactive Zoloft 50 mg tablet RxNorm: 566293 1 Tablet(s) PO daily 11/24/2014 11/23/2014 Inactive cyanocobalamin (vit B-12) 1,000 mcg/mL injection kit RxNorm: 453439 Milliliter(s) Inj 11/12/2014 11/12/2014 Inactive cyanocobalamin (vit B-12) 1,000 mcg/mL injection solution RxNorm: 512279 Milliliter(s) Inj 10/28/2014 10/28/2014 Inactive [SAVINGS FOR NON-COVERED DRUGS -- [id number], PCN: [id number], Group: [id number], ID# [id number], Questions: . THIS IS NOT INSURANCE.] promethazine oral RxNorm: 8745 oral No Start Date Active tramadol 50 mg tablet RxNorm: 128944 1 Tablet(s) PO TID No Start Date Active digoxin 125 mcg tablet RxNorm: 801966 Tablet(s) PO every other day No Start Date Active furosemide 40 mg tablet RxNorm: 349735 1 Tablet(s) PO daily No Start Date Active Vitamin D3 5,000 unit tablet RxNorm: 450631 1 Tablet(s) PO daily No Start Date Active erythromycin 250 mg capsule,delayed release RxNorm: 430533 1 Capsule(s) PO AC No Start Date Active Protonix 40 mg tablet,delayed release RxNorm: 694709 1 Tablet(s) PO BID No Start Date Active Cozaar 100 mg tablet RxNorm: 589342 1 Tablet(s) PO daily No Start Date 09/13/2016 Inactive sucralfate 1 gram tablet RxNorm: 110449 Tablet(s) PO QID No Start Date 12/15/2014 Inactive amiodarone 200 mg tablet RxNorm: 764520 2 Tablet(s) PO daily No Start Date 10/13/2015 Inactive buspirone 15 mg tablet RxNorm: 484432 1 Tablet(s) PO daily No Start Date 12/15/2014 Inactive potassium chloride ER 20 mEq tablet,extended release RxNorm: 672830 1 Tablet(s) PO daily No Start Date 10/12/2015 Inactive Prilosec 40 mg capsule,delayed release RxNorm: 948758 1 Capsule(s) PO daily No Start Date 09/02/2015 Inactive [place] 3 capsule RxNorm: Capsule(s) PO No Start Date 10/12/2015 Inactive alprazolam 0.25 mg tablet RxNorm: 178536 Tablet(s) PO QHS No Start Date 12/16/2014 Inactive levothyroxine 125 mcg tablet RxNorm: 250267 1 Tablet(s) PO daily No Start Date 12/23/2014 Inactive liothyronine 5 mcg tablet RxNorm: 162792 1 Tablet(s) PO BID No Start Date 07/21/2015 Inactive Mobic 15 mg tablet RxNorm: 754804 Tablet(s) PO daily No Start Date 05/19/2015 Inactive Norvasc 5 mg tablet RxNorm: 710547 1 Tablet(s) PO daily No Start Date 09/16/2015 Inactive Zofran 4 mg tablet RxNorm: 393361 1 Tablet(s) PO daily as needed No Start Date 05/19/2015 Inactive Tamiflu 75 mg capsule RxNorm: 849532 1 Capsule(s) PO BID No Start Date 07/23/2017 Inactive tramadol 50 mg tablet RxNorm: 948255 1 Tablet(s) PO daily as needed No Start Date 12/16/2014 Inactive amiodarone 200 mg tablet RxNorm: 729894 1 Tablet(s) PO daily No Start Date 10/12/2015 Inactive Zofran ODT 4 mg disintegrating tablet RxNorm: 470116 1 Tablet(s) PO TID as needed No Start Date 05/02/2017 Inactive albuterol sulfate 2.5 mg/3 mL (0.083 %) solution for nebulization RxNorm: 447393 3 Milliliter(s) INH Q6 PRN No Start Date 09/20/2017 Inactive meclizine 25 mg tablet RxNorm: 442842 Tablet(s) PO as needed No Start Date 05/24/2016 Inactive Pradaxa 150 mg capsule RxNorm: 6869708 1 Capsule(s) PO daily No Start Date 12/15/2014 Inactive metoprolol tartrate 50 mg tablet RxNorm: 724377 1/2 Tablet(s) PO No Start Date 12/15/2014 Inactive Aricept 10 mg tablet RxNorm: 265221 Tablet(s) PO daily No Start Date 05/19/2015 Inactive Calmoseptine 0.44 %-20.6 % topical ointment RxNorm: 581388 1 Application TOP BID and as needed to sore on buttocks No Start Date 09/06/2016 Inactive Zithromax Z-Henrique 250 mg tablet RxNorm: 130360 1 Tablet(s) PO UD No Start Date 11/09/2015 Inactive zpack x 1 Medication Administered Medication Codes Instructions Start Date Status cyanocobalamin (vit B-12) 1,000 mcg/mL injection solution RxNorm: 416281 Milliliter 10/10/2018 Active cyanocobalamin (vit B-12) 1,000 mcg/mL injection solution RxNorm: 299513 Milliliter 09/27/2018 No longer Active cyanocobalamin (vit B-12) 1,000 mcg/mL injection solution RxNorm: 803351 Milliliter 09/11/2018 No longer Active cyanocobalamin (vit B-12) 1,000 mcg/mL injection solution RxNorm: 827630 Milliliter 08/29/2018 No longer Active cyanocobalamin (vit B-12) 1,000 mcg/mL injection solution RxNorm: 020389 Milliliter 08/15/2018 No longer Active Kenalog 40 mg/mL suspension for injection RxNorm: 2403755 Milliliter 08/15/2018 No longer Active cyanocobalamin (vit B-12) 1,000 mcg/mL injection solution RxNorm: 890147 Milliliter 08/01/2018 No longer Active cyanocobalamin (vit B-12) 1,000 mcg/mL injection solution RxNorm: 935443 Milliliter 07/19/2018 No longer Active cyanocobalamin (vit B-12) 1,000 mcg/mL injection solution RxNorm: 181233 Milliliter 07/04/2018 No longer Active cyanocobalamin (vit B-12) 1,000 mcg/mL injection solution RxNorm: 656398 Milliliter 06/20/2018 No longer Active cyanocobalamin (vit B-12) 1,000 mcg/mL injection solution RxNorm: 516342 Milliliter 06/06/2018 No longer Active cyanocobalamin (vit B-12) 1,000 mcg/mL injection solution RxNorm: 702321 Milliliter 05/24/2018 No longer Active cyanocobalamin (vit B-12) 1,000 mcg/mL injection solution RxNorm: 055627 Milliliter 05/09/2018 No longer Active cyanocobalamin (vit B-12) 1,000 mcg/mL injection solution RxNorm: 426884 Milliliter 04/26/2018 No longer Active cyanocobalamin (vit B-12) 1,000 mcg/mL injection solution RxNorm: 726489 Milliliter 04/12/2018 No longer Active cyanocobalamin (vit B-12) 1,000 mcg/mL injection solution RxNorm: 658107 Milliliter 03/30/2018 No longer Active cyanocobalamin (vit B-12) 1,000 mcg/mL injection solution RxNorm: 684699 Milliliter 03/16/2018 No longer Active cyanocobalamin (vit B-12) 1,000 mcg/mL injection solution RxNorm: 879165 Milliliter 03/02/2018 No longer Active cyanocobalamin (vit B-12) 1,000 mcg/mL injection solution RxNorm: 471889 Milliliter 02/08/2018 No longer Active cyanocobalamin (vit B-12) 1,000 mcg/mL injection solution RxNorm: 971161 Milliliter 01/24/2018 No longer Active cyanocobalamin (vit B-12) 1,000 mcg/mL injection solution RxNorm: 050107 Milliliter 01/10/2018 No longer Active cyanocobalamin (vit B-12) 1,000 mcg/mL injection solution RxNorm: 137359 Milliliter 12/27/2017 No longer Active cyanocobalamin (vit B-12) 1,000 mcg/mL injection solution RxNorm: 816392 1Milliliter 12/12/2017 No longer Active cyanocobalamin (vit B-12) 1,000 mcg/mL injection solution RxNorm: 614225 Milliliter 12/01/2017 No longer Active cyanocobalamin (vit B-12) 1,000 mcg/mL injection solution RxNorm: 734255 1Milliliter 11/17/2017 No longer Active cyanocobalamin (vit B-12) 1,000 mcg/mL injection solution RxNorm: 183367 1Milliliter 11/02/2017 No longer Active cyanocobalamin (vit B-12) 1,000 mcg/mL injection solution RxNorm: 349768 1Milliliter 10/20/2017 No longer Active cyanocobalamin (vit B-12) 1,000 mcg/mL injection solution RxNorm: 126981 Milliliter 10/06/2017 No longer Active cyanocobalamin (vit B-12) 1,000 mcg/mL injection solution RxNorm: 977957 Milliliter 09/21/2017 No longer Active Kenalog 40 mg/mL suspension for injection RxNorm: 4110862 Milliliter 09/15/2017 No longer Active cyanocobalamin (vit B-12) 1,000 mcg/mL injection solution RxNorm: 412101 Milliliter 09/07/2017 No longer Active cyanocobalamin (vit B-12) 1,000 mcg/mL injection solution RxNorm: 806312 Milliliter 08/24/2017 No longer Active cyanocobalamin (vit B-12) 1,000 mcg/mL injection solution RxNorm: 692329 Milliliter 07/06/2017 No longer Active Kenalog 40 mg/mL suspension for injection RxNorm: 5087394 1Milliliter 06/20/2017 No longer Active cyanocobalamin (vit B-12) 1,000 mcg/mL injection solution RxNorm: 296993 Milliliter 06/20/2017 No longer Active cyanocobalamin (vit B-12) 1,000 mcg/mL injection solution RxNorm: 851883 Milliliter 06/05/2017 No longer Active cyanocobalamin (vit B-12) 1,000 mcg/mL injection solution RxNorm: 563124 Milliliter 05/25/2017 No longer Active cyanocobalamin (vit B-12) 1,000 mcg/mL injection solution RxNorm: 690287 Milliliter 05/16/2017 No longer Active cyanocobalamin (vit B-12) 1,000 mcg/mL injection solution RxNorm: 436926 1Milliliter 05/01/2017 No longer Active cyanocobalamin (vit B-12) 1,000 mcg/mL injection solution RxNorm: 084463 Milliliter 04/18/2017 No longer Active cyanocobalamin (vit B-12) 1,000 mcg/mL injection solution RxNorm: 694873 Milliliter 04/06/2017 No longer Active cyanocobalamin (vit B-12) 1,000 mcg/mL injection solution RxNorm: 832648 Milliliter 03/22/2017 No longer Active cyanocobalamin (vit B-12) 1,000 mcg/mL injection solution RxNorm: 899793 Milliliter 03/09/2017 No longer Active cyanocobalamin (vit B-12) 1,000 mcg/mL injection solution RxNorm: 306408 Milliliter 02/23/2017 No longer Active cyanocobalamin (vit B-12) 1,000 mcg/mL injection solution RxNorm: 560921 Milliliter 02/09/2017 No longer Active cyanocobalamin (vit B-12) 1,000 mcg/mL injection solution RxNorm: 367463 Milliliter 01/23/2017 No longer Active cyanocobalamin (vit B-12) 1,000 mcg/mL injection solution RxNorm: 598001 Milliliter 01/10/2017 No longer Active cyanocobalamin (vit B-12) 1,000 mcg/mL injection solution RxNorm: 701229 1Milliliter 12/28/2016 No longer Active cyanocobalamin (vit B-12) 1,000 mcg/mL injection solution RxNorm: 017037 Milliliter 12/14/2016 No longer Active cyanocobalamin (vit B-12) 1,000 mcg/mL injection solution RxNorm: 664756 Milliliter 11/24/2016 No longer Active cyanocobalamin (vit B-12) 1,000 mcg/mL injection solution RxNorm: 761344 1Milliliter 11/07/2016 No longer Active cyanocobalamin (vit B-12) 1,000 mcg/mL injection solution RxNorm: 749924 Milliliter 10/24/2016 No longer Active cyanocobalamin (vit B-12) 1,000 mcg/mL injection solution RxNorm: 857697 1Milliliter 09/29/2016 No longer Active cyanocobalamin (vit B-12) 1,000 mcg/mL injection solution RxNorm: 086678 Milliliter 08/29/2016 No longer Active cyanocobalamin (vit B-12) 1,000 mcg/mL injection solution RxNorm: 263242 Milliliter 08/04/2016 No longer Active cyanocobalamin (vit B-12) 1,000 mcg/mL injection solution RxNorm: 201577 Milliliter 07/21/2016 No longer Active cyanocobalamin (vit B-12) 1,000 mcg/mL injection solution RxNorm: 423995 1Milliliter 07/05/2016 No longer Active cyanocobalamin (vit B-12) 1,000 mcg/mL injection solution RxNorm: 227543 1Milliliter 06/22/2016 No longer Active cyanocobalamin (vit B-12) 1,000 mcg/mL injection solution RxNorm: 782128 Milliliter 06/09/2016 No longer Active cyanocobalamin (vit B-12) 1,000 mcg/mL injection solution RxNorm: 807826 1Milliliter 05/25/2016 No longer Active cyanocobalamin (vit B-12) 1,000 mcg/mL injection solution RxNorm: 449663 Milliliter 05/10/2016 No longer Active cyanocobalamin (vit B-12) 1,000 mcg/mL injection solution RxNorm: 811387 Milliliter 04/26/2016 No longer Active cyanocobalamin (vit B-12) 1,000 mcg/mL injection solution RxNorm: 865654 Milliliter 04/11/2016 No longer Active cyanocobalamin (vit B-12) 1,000 mcg/mL injection solution RxNorm: 777595 Milliliter 03/31/2016 No longer Active cyanocobalamin (vit B-12) 1,000 mcg/mL injection solution RxNorm: 665185 1Milliliter 03/15/2016 No longer Active cyanocobalamin (vit B-12) 1,000 mcg/mL injection solution RxNorm: 847658 Milliliter 02/25/2016 No longer Active cyanocobalamin (vit B-12) 1,000 mcg/mL injection solution RxNorm: 367240 1Milliliter 02/02/2016 No longer Active cyanocobalamin (vit B-12) 1,000 mcg/mL injection solution RxNorm: 945393 Milliliter 01/18/2016 No longer Active cyanocobalamin (vit B-12) 1,000 mcg/mL injection solution RxNorm: 927446 Milliliter 12/29/2015 No longer Active cyanocobalamin (vit B-12) 1,000 mcg/mL injection solution RxNorm: 552894 Milliliter 12/08/2015 No longer Active cyanocobalamin (vit B-12) 1,000 mcg/mL injection solution RxNorm: 572552 Milliliter 11/23/2015 No longer Active cyanocobalamin (vit B-12) 1,000 mcg/mL injection solution RxNorm: 871109 Milliliter 11/11/2015 No longer Active cyanocobalamin (vit B-12) 1,000 mcg/mL injection solution RxNorm: 688412 1Milliliter 10/29/2015 No longer Active cyanocobalamin (vit B-12) 1,000 mcg/mL injection solution RxNorm: 015957 1Milliliter 10/12/2015 No longer Active cyanocobalamin (vit B-12) 1,000 mcg/mL injection solution RxNorm: 296435 1Milliliter 09/29/2015 No longer Active cyanocobalamin (vit B-12) 1,000 mcg/mL injection solution RxNorm: 592844 1Milliliter 09/17/2015 No longer Active cyanocobalamin (vit B-12) 1,000 mcg/mL injection solution RxNorm: 686784 1Milliliter 09/03/2015 No longer Active cyanocobalamin (vit B-12) 1,000 mcg/mL injection solution RxNorm: 844131 Milliliter 08/17/2015 No longer Active cyanocobalamin (vit B-12) 1,000 mcg/mL injection solution RxNorm: 987902 Milliliter 08/06/2015 No longer Active cyanocobalamin (vit B-12) 1,000 mcg/mL injection solution RxNorm: 887353 Milliliter 07/22/2015 No longer Active cyanocobalamin (vit B-12) 1,000 mcg/mL injection solution RxNorm: 159411 Milliliter 07/08/2015 No longer Active cyanocobalamin (vit B-12) 1,000 mcg/mL injection solution RxNorm: 741416 Milliliter 06/23/2015 No longer Active cyanocobalamin (vit B-12) 1,000 mcg/mL injection solution RxNorm: 613369 1Milliliter 06/08/2015 No longer Active cyanocobalamin (vit B-12) 1,000 mcg/mL injection solution RxNorm: 571254 Milliliter 05/27/2015 No longer Active cyanocobalamin (vit B-12) 1,000 mcg/mL injection solution RxNorm: 233052 1Milliliter 05/12/2015 No longer Active cyanocobalamin (vit B-12) 1,000 mcg/mL injection kit RxNorm: 812701 kit 04/30/2015 No longer Active cyanocobalamin (vit B-12) 1,000 mcg/mL injection solution RxNorm: 411339 Milliliter 04/16/2015 No longer Active cyanocobalamin (vit B-12) 1,000 mcg/mL injection solution RxNorm: 716081 Milliliter 04/02/2015 No longer Active cyanocobalamin (vit B-12) 1,000 mcg/mL injection solution RxNorm: 024182 Milliliter 03/18/2015 No longer Active cyanocobalamin (vit B-12) 1,000 mcg/mL injection solution RxNorm: 759061 Milliliter 03/03/2015 No longer Active cyanocobalamin (vit B-12) 1,000 mcg/mL injection solution RxNorm: 435725 Milliliter 02/18/2015 No longer Active cyanocobalamin (vit B-12) 1,000 mcg/mL injection solution RxNorm: 215096 Milliliter 02/04/2015 No longer Active cyanocobalamin (vit B-12) 1,000 mcg/mL injection solution RxNorm: 189124 Milliliter 01/22/2015 No longer Active cyanocobalamin (vit B-12) 1,000 mcg/mL injection solution RxNorm: 184106 Milliliter 01/08/2015 No longer Active cyanocobalamin (vit B-12) 1,000 mcg/mL injection solution RxNorm: 083240 Milliliter 12/25/2014 No longer Active cyanocobalamin (vit B-12) 1,000 mcg/mL injection solution RxNorm: 819565 Milliliter 12/10/2014 No longer Active cyanocobalamin (vit B-12) 1,000 mcg/mL injection solution RxNorm: 973755 Milliliter 11/26/2014 No longer Active cyanocobalamin (vit B-12) 1,000 mcg/mL injection kit RxNorm: 376226 Milliliter 11/12/2014 No longer Active cyanocobalamin (vit B-12) 1,000 mcg/mL injection solution RxNorm: 692476 Milliliter 10/28/2014 No longer Active Immunizations Vaccine [...] without complications ICD-10: E11.9 ICD-9: 250.00 09/05/2018 Vitamin B12 deficiency anemia, unspecified ICD-10: D51.9 ICD-9: 281.1 08/29/2018 Acute bronchitis due to other specified organisms [...] Code Item Item Code Result Date Microalbumin Xtd183 MicroAlb <0.7 mg/dL 09/11/2018 Tsh Ord6 TSH (3rd IS) 6.48 uIU/mL 09/10/2018 Free T4 Ylo543 FREE T4 0.89 ng/dL 09/10/2018 Lipid Ord30 CHOL 177 mg/dL 09/10/2018 Lipid Ord30 HDL 64.0 mg/dl 09/10/2018 Lipid Ord30 TRIG 126 mg/dL 09/10/2018 Lipid Ord30 LDL 88 mg/dL 09/10/2018 Lipid Ord30 C/HDL 2.8 Ratio 09/10/2018 Comp Metabolic Rlr353 NA 139 mEq/L 09/10/2018 Comp Metabolic Muz629 K 4.8 mEq/L 09/10/2018 Comp Metabolic Ega393 CL 103 mEq/L 09/10/2018 Comp Metabolic Nbj842 CO2 25.0 mEq/L 09/10/2018 Comp Metabolic Ppl714 ANION GAP 16 09/10/2018 Comp Metabolic Dsj982 GLUCOSE 104 mg/dL 09/10/2018 Comp Metabolic Dye620 Creat 1.0 mg/dL 09/10/2018 Comp Metabolic Kkc738 eGFR 54 ml/min/1.73m2 09/10/2018 Comp Metabolic Oqh030 BUN 25 mg/dL 09/10/2018 Comp Metabolic Odh470 B/C Ratio 24.3 Ratio 09/10/2018 Comp Metabolic Zpf111 CALCIUM 9.3 mg/dL 09/10/2018 Comp Metabolic Fyk451 ALK PHOS 71 U/L 09/10/2018 Comp Metabolic Wvt670 AST(SGOT) 25 U/L 09/10/2018 Comp Metabolic Kwt881 ALT(SGPT) 28 U/L 09/10/2018 Comp Metabolic Zuu867 BILI T 0.7 mg/dL 09/10/2018 Comp Metabolic Awi666 ALBUMIN 4.2 g/dL 09/10/2018 Comp Metabolic Fuu294 TPRO 6.5 g/dL 09/10/2018 Comp Metabolic Uua553 GLOB 2.3 g/dL 09/10/2018 Comp Metabolic Jxh207 A/G Ratio 1.8 Ratio 09/10/2018 Comp Metabolic Nla458 Osmo 282 mOsmo 09/10/2018 Cbc With Differential [...] 27.7 pg 09/10/2018 Cbc With Differential Ord2 [place]% 8.8 % 09/10/2018 Cbc With Differential Ord2 [...] 2.24 K/ul 09/10/2018 Cbc With Differential Ord2 [place] ABS# 0.6 K/ul 09/10/2018 Cbc With Differential Ord2 Eos ABS# 0.2 K/ul 09/10/2018 Cbc With Differential Ord2 Baso ABS# 0.1 K/ul 09/10/2018 %Hba1C Naa418 % HbA1c 55868- 6 6.0 % 09/10/2018 %Hba1C Ovp902 Gluc Ave 126 mg/dL 09/10/2018 Test(s) Not Perfromed [id number] Test(s) Not Performed Test(s) Not Performed. See Below: 09/10/2018 Test(s) Not Perfromed [id number] TEST NAME Microalbumin 09/10/2018 Test(s) Not Perfromed [id number] Rejection Reason Patient Unable to Void 09/10/2018 Test(s) Not Perfromed [id number] COMMENT Patient to deliver sample to the lab at a later date 09/10/2018 Test(s) Not Perfromed [id number] Librarian Favio Mulligan 09/10/2018 Lipid Ord30 CHOL 174 mg/dL 05/29/2018 Lipid Ord30 HDL 49.0 mg/dl 05/29/2018 Lipid Ord30 TRIG 200 mg/dL 05/29/2018 Lipid Ord30 LDL 85 mg/dL 05/29/2018 Lipid Ord30 C/HDL 3.6 Ratio 05/29/2018 Tsh Ord6 TSH (3rd IS) 3.20 uIU/mL 02/26/2018 Free T4 Tcv655 FREE T4 0.99 ng/dL 02/26/2018 Cbc With [...] 28.5 pg 02/26/2018 Cbc With Differential Ord2 [place]% 10.3 % 02/26/2018 Cbc With Differential Ord2 [...] 1.80 K/ul 02/26/2018 Cbc With Differential Ord2 [place] ABS# 0.7 K/ul 02/26/2018 Cbc With Differential Ord2 Eos ABS# 0.2 K/ul 02/26/2018 Cbc With Differential Ord2 Baso ABS# 0.0 K/ul 02/26/2018 B12 Jeu187 B12 889.00 pg/ml 02/26/2018 Digoxin Ord9 DIGOXIN 0.7 NG/ML 11/23/2017 Comp Metabolic Iuo916 NA 142 mEq/L 11/23/2017 Comp Metabolic Fbs983 K 4.9 mEq/L 11/23/2017 Comp Metabolic Iiw277 CL 112 mEq/L 11/23/2017 Comp Metabolic Bwk812 CO2 18.0 mEq/L 11/23/2017 Comp Metabolic Ksd766 ANION GAP 17 11/23/2017 Comp Metabolic Nve468 GLUCOSE 123 mg/dL 11/23/2017 Comp Metabolic Mgl634 Creat 1.0 mg/dL 11/23/2017 Comp Metabolic Cnt931 eGFR 59 ml/min/1.73m2 11/23/2017 Comp Metabolic Djf018 BUN 24 mg/dL 11/23/2017 Comp Metabolic Tfj063 B/C Ratio 25.0 Ratio 11/23/2017 Comp Metabolic Jsn950 CALCIUM 9.4 mg/dL 11/23/2017 Comp Metabolic Roz587 ALK PHOS 56 U/L 11/23/2017 Comp Metabolic Dta056 AST(SGOT) 17 U/L 11/23/2017 Comp Metabolic Ipr311 ALT(SGPT) 16 U/L 11/23/2017 Comp Metabolic Mhj405 BILI T 0.7 mg/dL 11/23/2017 Comp Metabolic Dbg648 ALBUMIN 3.8 g/dL 11/23/2017 Comp Metabolic Kds956 TPRO 6.2 g/dL 11/23/2017 Comp Metabolic Mhy925 GLOB 2.4 g/dL 11/23/2017 Comp Metabolic Pet420 A/G Ratio 1.6 Ratio 11/23/2017 Comp Metabolic Wgi218 Osmo 289 mOsmo 11/23/2017 Free T4 Bux244 FREE T4 1.04 ng/dL 11/23/2017 %Hba1C Btb457 % HbA1c 03332- 6 6.4 % 11/23/2017 %Hba1C Dna250 Gluc Ave 137 mg/dL 11/23/2017 Lipid Ord30 CHOL 179 mg/dL 11/23/2017 Lipid Ord30 HDL 51.0 mg/dl 11/23/2017 Lipid Ord30 TRIG 134 mg/dL 11/23/2017 Lipid Ord30 LDL 101 mg/dL 11/23/2017 Lipid Ord30 C/HDL 3.5 Ratio 11/23/2017 Tsh Ord6 TSH (3rd IS) 1.00 uIU/mL 11/23/2017 Microalbumin Cho427 MicroAlb <0.7 mg/dL 11/23/2017 Comp Metabolic Lbg854 NA 141 mEq/L 01/23/2017 Comp Metabolic Uif470 K 4.5 mEq/L 01/23/2017 Comp Metabolic Soh169 CL 107 mEq/L 01/23/2017 Comp Metabolic Ehj956 CO2 21.0 mEq/L 01/23/2017 Comp Metabolic Haw544 ANION GAP 18 01/23/2017 Comp Metabolic Cjp823 GLUCOSE 138 mg/dL 01/23/2017 Comp Metabolic Qpg960 Creat 1.0 mg/dL 01/23/2017 Comp Metabolic Gng728 eGFR 56 ml/min/1.73m2 01/23/2017 Comp Metabolic Phy246 BUN 26 mg/dL 01/23/2017 Comp Metabolic Pdm713 B/C Ratio 25.7 Ratio 01/23/2017 Comp Metabolic Cpl718 CALCIUM 9.0 mg/dL 01/23/2017 Comp Metabolic Ziz967 ALK PHOS 37 U/L 01/23/2017 Comp Metabolic Via326 AST(SGOT) 20 U/L 01/23/2017 Comp Metabolic Rcv863 ALT(SGPT) 25 U/L 01/23/2017 Comp Metabolic Cys444 BILI T 0.9 mg/dL 01/23/2017 Comp Metabolic Tmb363 ALBUMIN 3.8 g/dL 01/23/2017 Comp Metabolic Ivl574 TPRO 6.5 g/dL 01/23/2017 Comp Metabolic Bdb006 GLOB 2.7 g/dL 01/23/2017 Comp Metabolic Gyc372 A/G Ratio 1.4 Ratio 01/23/2017 Comp Metabolic Hyb948 Osmo 288 mOsmo 01/23/2017 Free T4 Tqf880 FREE T4 1.05 ng/dL 01/23/2017 %Hba1C Qto408 % HbA1c 13228- 6 6.1 % 01/23/2017 %Hba1C Ygc101 Gluc Ave 128 mg/dL 01/23/2017 Tsh Ord6 hTSH II 1.68 uIU/mL 01/23/2017 Culture Urine [id number] URINE CULTURE SEE NOTES 11/10/2016 Culture Urine [id number] Continued Results 11/10/2016 Urine Culture Ucult Complete [...] Ord15 CALCIUM 9.3 mg/dL 09/29/2016 Free T4 Akw485 FREE T4 0.99 ng/dL 09/07/2016 Cbc With [...] 30.0 pg 09/07/2016 Cbc With Differential Ord2 [place]% 9.8 % 09/07/2016 Cbc With Differential Ord2 [...] 1.75 K/ul 09/07/2016 Cbc With Differential Ord2 [place] ABS# 0.6 K/ul 09/07/2016 Cbc With Differential Ord2 Eos ABS# 0.1 K/ul 09/07/2016 Cbc With Differential Ord2 Baso ABS# 0.0 K/ul 09/07/2016 Tsh Ord6 hTSH II 1.41 uIU/mL 09/07/2016 Culture Urine [id number] URINE CULTURE SEE NOTES 06/27/2016 Lipid Ord30 CHOL 196 mg/dL 06/22/2016 Lipid Ord30 HDL 63.0 mg/dl 06/22/2016 Lipid Ord30 TRIG 154 mg/dL 06/22/2016 Lipid Ord30 LDL 102 mg/dL 06/22/2016 Lipid Ord30 C/HDL 3.1 Ratio 06/22/2016 Hepatic Zkb269 ALBUMIN 4.2 g/dL 06/22/2016 Hepatic Gwj048 TPRO 7.0 g/dL 06/22/2016 Hepatic Dfz800 GLOB 2.8 g/dL 06/22/2016 Hepatic Ave070 A/G Ratio 1.5 Ratio 06/22/2016 Hepatic Hwm690 ALK PHOS 54 U/L 06/22/2016 Hepatic Ikz216 ALT(SGPT) 30 U/L 06/22/2016 Hepatic Vlx829 AST(SGOT) 24 U/L 06/22/2016 Hepatic Bbj606 BILI T 1.1 mg/dL 06/22/2016 Hepatic Nhc968 BILI D 0.2 mg/dL 06/22/2016 Hepatic Tzu319 BILI I 0.9 mg/dL 06/22/2016 Comp Metabolic Zyy289 NA 139 mEq/L 06/14/2016 Comp Metabolic Ngi957 K 4.6 mEq/L 06/14/2016 Comp Metabolic Igd523 CL 108 mEq/L 06/14/2016 Comp Metabolic Goq408 CO2 22.0 mEq/L 06/14/2016 Comp Metabolic Ieg486 ANION GAP 14 06/14/2016 Comp Metabolic Xic224 GLUCOSE 114 mg/dL 06/14/2016 Comp Metabolic Qqc744 Creat 1.2 mg/dL 06/14/2016 Comp Metabolic Hfq315 eGFR 48 ml/min/1.73m2 06/14/2016 Comp Metabolic Wcs031 BUN 24 mg/dL 06/14/2016 Comp Metabolic Zkh666 B/C Ratio 20.9 Ratio 06/14/2016 Comp Metabolic Uea494 CALCIUM 9.9 mg/dL 06/14/2016 Comp Metabolic Fxx786 ALK PHOS 47 U/L 06/14/2016 Comp Metabolic Cbt091 AST(SGOT) 28 U/L 06/14/2016 Comp Metabolic Sqg985 ALT(SGPT) 32 U/L 06/14/2016 Comp Metabolic Fgy887 BILI T 0.9 mg/dL 06/14/2016 Comp Metabolic Smc388 ALBUMIN 4.1 g/dL 06/14/2016 Comp Metabolic Phz072 TPRO 6.9 g/dL 06/14/2016 Comp Metabolic Uay412 GLOB 2.8 g/dL 06/14/2016 Comp Metabolic Nwo210 A/G Ratio 1.5 Ratio 06/14/2016 Comp Metabolic Syx635 Osmo 282 mOsmo 06/14/2016 Tsh Ord6 hTSH II 1.26 uIU/mL 06/14/2016 Free T4 Ngj285 FREE T4 1.09 ng/dL 06/14/2016 Tsh Ord6 hTSH II 0.28 uIU/mL 02/02/2016 Digoxin Ord9 DIGOXIN 0.7 NG/ML 02/02/2016 Free T4 Nav969 FREE T4 1.23 ng/dL 02/02/2016 Hepatic Ttp166 ALBUMIN 4.0 g/dL 02/02/2016 Hepatic Wuy213 TPRO 7.0 g/dL 02/02/2016 Hepatic Hnd378 GLOB 3.0 g/dL 02/02/2016 Hepatic Wif531 A/G Ratio 1.3 Ratio 02/02/2016 Hepatic Uwq494 ALK PHOS 57 U/L 02/02/2016 Hepatic Rry913 ALT(SGPT) 62 U/L 02/02/2016 Hepatic Baa690 AST(SGOT) 54 U/L 02/02/2016 Hepatic Tci497 BILI T 0.8 mg/dL 02/02/2016 Hepatic Tvo759 BILI D 0.2 mg/dL 02/02/2016 Hepatic Pre060 BILI I 0.6 mg/dL 02/02/2016 Urine Culture Ucult Preliminary No Growth Day 1 11/25/2015 Urine Culture Ucult Complete No Growth Day 2 11/25/2015 Hepatic Mto129 ALBUMIN 3.9 g/dL 11/11/2015 Hepatic Rsz628 TPRO 7.0 g/dL 11/11/2015 Hepatic Ifz091 GLOB 3.1 g/dL 11/11/2015 Hepatic Eju097 A/G Ratio 1.3 Ratio 11/11/2015 Hepatic Tfd378 ALK PHOS 63 U/L 11/11/2015 Hepatic Yrp076 ALT(SGPT) 107 U/L 11/11/2015 Hepatic Inw228 AST(SGOT) 101 U/L 11/11/2015 Hepatic Ycd556 BILI T 0.6 mg/dL 11/11/2015 Hepatic Vmm324 BILI D 0.1 mg/dL 11/11/2015 Hepatic Yix071 BILI I 0.5 mg/dL 11/11/2015 Comp Metabolic Zyx713 NA 138 mEq/L 10/29/2015 Comp Metabolic Dla797 K 5.0 mEq/L 10/29/2015 Comp Metabolic Gup004 CL 105 mEq/L 10/29/2015 Comp Metabolic Hkz941 CO2 23.0 mEq/L 10/29/2015 Comp Metabolic Daj855 ANION GAP 15 10/29/2015 Comp Metabolic Non497 GLUCOSE 105 mg/dL 10/29/2015 Comp Metabolic Ftz272 Creat 1.0 mg/dL 10/29/2015 Comp Metabolic Sua994 eGFR 55 ml/min/1.73m2 10/29/2015 Comp Metabolic Naz654 BUN 20 mg/dL 10/29/2015 Comp Metabolic Vsb766 B/C Ratio 19.4 Ratio 10/29/2015 Comp Metabolic Upb998 CALCIUM 8.8 mg/dL 10/29/2015 Comp Metabolic Sun179 ALK PHOS 56 U/L 10/29/2015 Comp Metabolic Xlo632 AST(SGOT) 66 U/L 10/29/2015 Comp Metabolic Dru310 ALT(SGPT) 78 U/L 10/29/2015 Comp Metabolic Mmz611 BILI T 0.7 mg/dL 10/29/2015 Comp Metabolic Stf687 ALBUMIN 3.6 g/dL 10/29/2015 Comp Metabolic Ila953 TPRO 6.6 g/dL 10/29/2015 Comp Metabolic Wjl182 GLOB 3.0 g/dL 10/29/2015 Comp Metabolic Lyn328 A/G Ratio 1.2 Ratio 10/29/2015 Comp Metabolic Vae705 Osmo 279 mOsmo 10/29/2015 Comp Metabolic Dnn802 NA 136 mEq/L 09/03/2015 Comp Metabolic Laj669 K 4.4 mEq/L 09/03/2015 Comp Metabolic Stv491 CL 103 mEq/L 09/03/2015 Comp Metabolic Skv058 CO2 24.0 mEq/L 09/03/2015 Comp Metabolic Ryt290 ANION GAP 13 09/03/2015 Comp Metabolic Lku717 GLUCOSE 87 mg/dL 09/03/2015 Comp Metabolic Gvp352 Creat 1.1 mg/dL 09/03/2015 Comp Metabolic Swc793 eGFR 53 ml/min/1.73m2 09/03/2015 Comp Metabolic Rlg109 BUN 17 mg/dL 09/03/2015 Comp Metabolic Prx673 B/C Ratio 16.2 Ratio 09/03/2015 Comp Metabolic Myx736 CALCIUM 9.0 mg/dL 09/03/2015 Comp Metabolic Oth004 ALK PHOS 55 U/L 09/03/2015 Comp Metabolic Uoj375 AST(SGOT) 83 U/L 09/03/2015 Comp Metabolic Yrl965 ALT(SGPT) 126 U/L 09/03/2015 Comp Metabolic Xrg090 BILI T 0.9 mg/dL 09/03/2015 Comp Metabolic Wha085 ALBUMIN 3.9 g/dL 09/03/2015 Comp Metabolic Alg914 TPRO 6.8 g/dL 09/03/2015 Comp Metabolic Aqt435 GLOB 2.9 g/dL 09/03/2015 Comp Metabolic Xei055 A/G Ratio 1.4 Ratio 09/03/2015 Comp Metabolic Zfk621 Osmo 273 mOsmo 09/03/2015 Total T3 Ord42 TT3 0.6 ng/ml 07/09/2015 Tsh Ord6 hTSH II 1.62 uIU/mL 07/09/2015 Total T3 Ord42 TT3 0.5 ng/ml 04/02/2015 Free T4 Wsk506 FREE T4 1.23 ng/dL 04/02/2015 Tsh Ord6 [...] lips 01/23/2017 None Full Exam - General 1995 Ears/Nose/Throat lips/teeth/gingiva Overall: normal dentition 01/23/2017 None [...] Procedure Codes Date THER/PROPH/DIAG INJ SC/IM CPT-4: 04784 10/10/2018 THER/PROPH/DIAG INJ SC/IM CPT-4: 08793 09/27/2018 THER/PROPH/DIAG INJ SC/IM CPT-4: 95296 09/11/2018 THER/PROPH/DIAG INJ SC/IM CPT-4: 46180 08/29/2018 THER/PROPH/DIAG INJ SC/IM CPT-4: 64391 08/15/2018 TRIAMCINOLONE ACET INJ NOS CPT-4: J3301 08/15/2018 THER/PROPH/DIAG INJ SC/IM CPT-4: 24398 08/01/2018 VITAMIN B12 INJECTION CPT- 4: J3420 08/01/2018 THER/PROPH/DIAG INJ SC/IM CPT-4: 28743 07/19/2018 THER/PROPH/DIAG INJ SC/IM CPT-4: 54136 07/04/2018 THER/PROPH/DIAG INJ SC/IM CPT-4: 69132 06/20/2018 THER/PROPH/DIAG INJ SC/IM CPT-4: 06403 06/06/2018 VITAMIN B12 INJECTION CPT- 4: J3420 06/06/2018 THER/PROPH/DIAG INJ SC/IM CPT-4: 44472 05/24/2018 THER/PROPH/DIAG INJ SC/IM CPT-4: 23825 05/09/2018 THER/PROPH/DIAG INJ SC/IM CPT-4: 64974 04/26/2018 VITAMIN B12 INJECTION CPT- 4: J3420 04/26/2018 THER/PROPH/DIAG INJ SC/IM CPT-4: 36451 04/12/2018 THER/PROPH/DIAG INJ SC/IM CPT-4: 37095 03/30/2018 THER/PROPH/DIAG INJ SC/IM CPT-4: 14143 03/16/2018 VITAMIN B12 INJECTION CPT- 4: J3420 03/16/2018 ADMIN INFLUENZA VIRUS VAC CPT-4: G0008 03/16/2018 FLU VACC PRSV FREE INC ANTIG Formatting Model/CDA Sections, Assigned to/Nga Ojeda CPT-4: 48288Umpqkor 03/16/2018 THER/PROPH/DIAG INJ SC/IM CPT-4: 80445 03/02/2018 THER/PROPH/DIAG INJ SC/IM CPT-4: 56929 02/08/2018 THER/PROPH/DIAG INJ SC/IM CPT-4: 59991 01/24/2018 THER/PROPH/DIAG INJ SC/IM CPT-4: 68905 01/10/2018 THER/PROPH/DIAG INJ SC/IM CPT-4: 37062 12/27/2017 VITAMIN B12 INJECTION CPT- 4: J3420 12/27/2017 THER/PROPH/DIAG INJ SC/IM CPT-4: 79475 12/12/2017 THER/PROPH/DIAG INJ SC/IM CPT-4: 78853 12/01/2017 VITAMIN B12 INJECTION CPT- 4: J3420 12/01/2017 THER/PROPH/DIAG INJ SC/IM CPT-4: 50995 11/17/2017 THER/PROPH/DIAG INJ SC/IM CPT-4: 37926 11/02/2017 THER/PROPH/DIAG INJ SC/IM CPT-4: 04364 10/20/2017 THER/PROPH/DIAG INJ SC/IM CPT-4: 65630 10/06/2017 THER/PROPH/DIAG INJ SC/IM CPT-4: 81919 09/21/2017 TRIAMCINOLONE ACET INJ NOS CPT-4: J3301 09/15/2017 THER/PROPH/DIAG INJ SC/IM CPT-4: 64309 09/07/2017 THER/PROPH/DIAG INJ SC/IM CPT-4: 45970 08/24/2017 THER/PROPH/DIAG INJ SC/IM CPT-4: 68249 07/06/2017 THER/PROPH/DIAG INJ SC/IM CPT-4: 77047 06/20/2017 TRIAMCINOLONE ACET INJ NOS CPT-4: J3301 06/20/2017 PPPS, SUBSEQ VISIT CPT- 4: G0439 06/05/2017 THER/PROPH/DIAG INJ SC/IM CPT-4: 11012 06/05/2017 THER/PROPH/DIAG INJ SC/IM CPT-4: 51546 05/25/2017 VITAMIN B12 INJECTION CPT- 4: J3420 05/25/2017 THER/PROPH/DIAG INJ SC/IM CPT-4: 17854 05/16/2017 THER/PROPH/DIAG INJ SC/IM CPT-4: 72967 05/01/2017 THER/PROPH/DIAG INJ SC/IM CPT-4: 42407 04/18/2017 THER/PROPH/DIAG INJ SC/IM CPT-4: 16344 04/06/2017 ADMIN INFLUENZA VIRUS VAC CPT-4: G0008 03/22/2017 FLU VACC PRSV FREE INC ANTIG CPT-4: 68518 03/22/2017 THER/PROPH/DIAG INJ SC/IM CPT-4: 17104 03/09/2017 THER/PROPH/DIAG INJ SC/IM CPT-4: 21098 02/23/2017 THER/PROPH/DIAG INJ SC/IM CPT-4: 00629 02/09/2017 THER/PROPH/DIAG INJ SC/IM CPT-4: 80848 01/23/2017 THER/PROPH/DIAG INJ SC/IM CPT-4: 72441 01/10/2017 THER/PROPH/DIAG INJ SC/IM CPT-4: 20077 12/28/2016 THER/PROPH/DIAG INJ SC/IM CPT-4: 52282 12/14/2016 THER/PROPH/DIAG INJ SC/IM CPT-4: 89080 11/24/2016 URINALYSIS NONAUTO W/O SCOPE CPT-4: 43834 11/07/2016 THER/PROPH/DIAG INJ SC/IM CPT-4: 62150 11/07/2016 THER/PROPH/DIAG INJ SC/IM CPT-4: 14167 10/24/2016 THER/PROPH/DIAG INJ SC/IM CPT-4: 24882 09/29/2016 THER/PROPH/DIAG INJ SC/IM CPT-4: 53895 08/29/2016 THER/PROPH/DIAG INJ SC/IM CPT-4: 44662 08/04/2016 THER/PROPH/DIAG INJ SC/IM CPT-4: 75729 07/21/2016 THER/PROPH/DIAG INJ SC/IM CPT-4: 00280 07/05/2016 THER/PROPH/DIAG INJ SC/IM CPT-4: 37730 06/22/2016 URINALYSIS NONAUTO W/O SCOPE CPT-4: 04736 06/22/2016 THER/PROPH/DIAG INJ SC/IM CPT-4: 15942 06/09/2016 PPPS, SUBSEQ VISIT CPT- 4: G0439 05/30/2016 ADMIN PNEUMOCOCCAL VACCINE SNOMED CT: 29073610 CPT-4: G0009 05/25/2016 Pneumococcal Polysaccharide Vaccine, 23-Valent, Ad CPT-4: 64921 05/25/2016 THER/PROPH/DIAG INJ SC/IM CPT-4: 28802 05/25/2016 THER/PROPH/DIAG INJ SC/IM CPT-4: 89936 05/10/2016 TRIAMCINOLONE ACET INJ NOS CPT-4: J3301 04/26/2016 VITAMIN B12 INJECTION CPT- 4: J3420 04/26/2016 THER/PROPH/DIAG INJ SC/IM CPT-4: 10844 04/11/2016 THER/PROPH/DIAG INJ SC/IM CPT-4: 03646 03/31/2016 ADMIN INFLUENZA VIRUS VAC CPT-4: G0008 03/15/2016 FLU VACC 4 STEPHANIE 3 YRS PLUS IM SNOMED CT: 64870065 CPT-4: 39594 03/15/2016 THER/PROPH/DIAG INJ SC/IM CPT-4: 73353 02/25/2016 THER/PROPH/DIAG INJ SC/IM CPT-4: 14939 02/02/2016 THER/PROPH/DIAG INJ SC/IM CPT-4: 26135 01/18/2016 VITAMIN B12 INJECTION CPT- 4: J3420 12/29/2015 THER/PROPH/DIAG INJ SC/IM CPT-4: 91826 12/29/2015 THER/PROPH/DIAG INJ SC/IM CPT-4: 00109 12/08/2015 THER/PROPH/DIAG INJ SC/IM CPT-4: 16289 11/23/2015 URINALYSIS NONAUTO W/O SCOPE CPT-4: 99381 11/23/2015 THER/PROPH/DIAG INJ SC/IM CPT-4: 95801 11/11/2015 THER/PROPH/DIAG INJ SC/IM CPT-4: 69334 10/29/2015 THER/PROPH/DIAG INJ SC/IM CPT-4: 74491 10/12/2015 VITAMIN B12 INJECTION CPT- 4: J3420 10/12/2015 THER/PROPH/DIAG INJ SC/IM CPT-4: 66218 09/29/2015 THER/PROPH/DIAG INJ SC/IM CPT-4: 83440 09/17/2015 THER/PROPH/DIAG INJ SC/IM CPT-4: 51100 09/03/2015 THER/PROPH/DIAG INJ SC/IM CPT-4: 76020 08/17/2015 THER/PROPH/DIAG INJ SC/IM CPT-4: 60699 08/06/2015 THER/PROPH/DIAG INJ SC/IM CPT-4: 37470 07/22/2015 THER/PROPH/DIAG INJ SC/IM CPT-4: 26667 07/08/2015 THER/PROPH/DIAG INJ SC/IM CPT-4: 63721 06/23/2015 THER/PROPH/DIAG INJ SC/IM CPT-4: 36818 06/08/2015 THER/PROPH/DIAG INJ SC/IM CPT-4: 32071 05/27/2015 DESTRUCT PREMALG LESION CPT-4: 95997 05/19/2015 DESTRUCT PREMALG LES 2-14 CPT-4: 98531 05/19/2015 THER/PROPH/DIAG INJ SC/IM CPT-4: 63944 05/12/2015 VITAMIN B12 INJECTION CPT- 4: J3420 05/12/2015 THER/PROPH/DIAG INJ SC/IM CPT-4: 11879 04/30/2015 VITAMIN B12 INJECTION CPT- 4: J3420 04/30/2015 THER/PROPH/DIAG INJ SC/IM CPT-4: 71672 04/16/2015 THER/PROPH/DIAG INJ SC/IM CPT-4: 98422 04/02/2015 VITAMIN B12 INJECTION CPT- 4: J3420 04/02/2015 THER/PROPH/DIAG INJ SC/IM CPT-4: 89268 03/18/2015 THER/PROPH/DIAG INJ SC/IM CPT-4: 01114 03/03/2015 THER/PROPH/DIAG INJ SC/IM CPT-4: 16533 02/18/2015 THER/PROPH/DIAG INJ SC/IM CPT-4: 12491 02/04/2015 VITAMIN B12 INJECTION CPT- 4: J3420 02/04/2015 THER/PROPH/DIAG INJ SC/IM CPT-4: 37149 01/22/2015 THER/PROPH/DIAG INJ SC/IM CPT-4: 97560 01/08/2015 VITAMIN B12 INJECTION CPT- 4: J3420 01/08/2015 THER/PROPH/DIAG INJ SC/IM CPT-4: 95091 12/25/2014 VITAMIN B12 INJECTION CPT- 4: J3420 12/25/2014 THER/PROPH/DIAG INJ SC/IM CPT-4: 45151 12/10/2014 VITAMIN B12 INJECTION CPT- 4: J3420 12/10/2014 THER/PROPH/DIAG INJ SC/IM CPT-4: 49804 11/26/2014 VITAMIN B12 INJECTION CPT- 4: J3420 11/26/2014 THER/PROPH/DIAG INJ SC/IM CPT-4: 82678 11/12/2014 VITAMIN B12 INJECTION CPT- 4: J3420 11/12/2014 THER/PROPH/DIAG INJ SC/IM CPT-4: 87961 10/28/2014 Vital Signs Date Vital 09/05/2018 Blood Pressure 1: 122/70 Code: 8480-6 BMI: 27.1 Code: 68251-9 Heart Rate 1: 90 bpm Height: 5'6" SpO2: 97% Weight: 168 lbs 08/15/2018 Blood Pressure 1: 142/76 Code: 8480-6 BMI: 27.4 Code: 00617-4 Heart Rate 1: 74 bpm Height: 5'6" SpO2: 95% Temperature: 36.7 (C) / 98.1 (F) Weight: 170 lbs 05/03/2018 Blood Pressure 1: 140/70 Code: 8480-6 BMI: 26.0 Code: 21673-9 Heart Rate 1: 70 bpm Height: 5'6" SpO2: 94% Weight: 161 lbs 04/26/2018 Height: 5'6" 02/26/2018 Blood Pressure 1: 130/72 Code: 8480-6 BMI: 27.9 Code: 50822-0 Heart Rate 1: 72 bpm Height: 5'6" SpO2: 93% Weight: 173 lbs 12/12/2017 Blood Pressure 1: 126/74 Code: 8480-6 BMI: 27.4 Code: 21224-9 Heart Rate 1: 83 bpm Height: 5'6" SpO2: 98% Weight: 170 lbs 12/04/2017 Blood Pressure 1: 104/68 Code: 8480-6 BMI: 28.2 Code: 67317-2 Heart Rate 1: 85 bpm Height: 5'6" SpO2: 95% Weight: 175 lbs 11/20/2017 Blood Pressure 1: 130/68 Code: 8480-6 BMI: 28.4 Code: 64869-0 Heart Rate 1: 80 bpm Height: 5'6" SpO2: 99% Weight: 176 lbs 11/02/2017 Height: 5'6" 09/15/2017 Blood Pressure 1: 134/74 Code: 8480-6 BMI: 28.4 Code: 85906-0 Heart Rate 1: 88 bpm Height: 5'6" SpO2: 98% Weight: 176 lbs 09/07/2017 Blood Pressure 1: 124/64 Code: 8480-6 Heart Rate 1: 90 bpm Height: SpO2: 97% Weight: 08/30/2017 Blood Pressure 1: 140/76 Code: 8480-6 BMI: 28.4 Code: 78103-3 Heart Rate 1: 90 bpm Height: 5'6" SpO2: 94% Weight: 176 lbs 07/06/2017 Blood Pressure 1: 132/66 Code: 8480-6 BMI: 29.4 Code: 73589-8 Heart Rate 1: 85 bpm Height: 5'6" SpO2: 97% Weight: 182 lbs 06/20/2017 Blood Pressure 1: 134/86 Code: 8480-6 Heart Rate 1: 90 bpm Height: SpO2: 98% Weight: 06/05/2017 BMI: 29.1 Code: 44332-2 Height: 5'6" Weight: 180 lbs 05/25/2017 Blood Pressure 1: 126/76 Code: 8480-6 BMI: 29.1 Code: 87645-9 Heart Rate 1: 77 bpm Height: 5'6" SpO2: 97% Weight: 180 lbs 03/23/2017 Blood Pressure 1: 142/84 Code: 8480-6 BMI: 29.1 Code: 87494-2 Heart Rate 1: 91 bpm Height: 5'6" SpO2: 97% Weight: 180 lbs 01/23/2017 Blood Pressure 1: 150/90 Code: 8480-6 BMI: 29.9 Code: 48056-4 Heart Rate 1: 81 bpm Height: 5'6" SpO2: 97% Weight: 185 lbs 11/02/2016 Blood Pressure 1: 148/78 Code: 8480-6 BMI: 29.7 Code: 35092-5 Heart Rate 1: 87 bpm Height: 5'6" SpO2: 97% Weight: 184 lbs 09/29/2016 Blood Pressure 1: 128/78 Code: 8480-6 BMI: 29.7 Code: 07357-1 Heart Rate 1: 78 bpm Height: 5'6" SpO2: 98% Weight: 184 lbs 07/26/2016 Blood Pressure 1: 138/72 Code: 8480-6 BMI: 30.0 Code: 56648-2 Heart Rate 1: 85 bpm Height: 5'6" SpO2: 97% Weight: 186 lbs 05/30/2016 Blood Pressure 1: 132/76 Code: 8480-6 BMI: 30.0 Code: 51696-7 Heart Rate 1: 80 bpm Height: 5'6" SpO2: 98% Waist Measure (cm): 99 cm Weight: 186 lbs 05/25/2016 Blood Pressure 1: 13276 Code: 8480-6 BMI: 30.0 Code: 56765-0 Heart Rate 1: 80 bpm Height: 5'6" SpO2: 96% Weight: 186 lbs 02/25/2016 Blood Pressure 1: 110/64 Code: 8480-6 Heart Rate 1: 82 bpm Height: SpO2: 96% Weight: 01/25/2016 Blood Pressure 1: 118/70 Code: 8480-6 BMI: 30.0 Code: 30312-8 Heart Rate 1: 78 bpm Height: 5'6" SpO2: 97% Weight: 186 lbs 11/11/2015 Blood Pressure 1: 128/82 Code: 8480-6 BMI: 29.2 Code: 94659-7 Heart Rate 1: 86 bpm Height: 5'6" SpO2: 96% Temperature: 36.4 (C) / 97.6 (F) Weight: 181 lbs 10/12/2015 Blood Pressure 1: 118/70 Code: 8480-6 BMI: 29.2 Code: 78642-6 Heart Rate 1: 81 bpm Height: 5'6" SpO2: 95% Weight: 181 lbs 09/03/2015 Blood Pressure 1: 138/78 Code: 8480-6 BMI: 29.9 Code: 24612-2 Heart Rate 1: 88 bpm Height: 5'6" SpO2: 97% Weight: 185 lbs 05/19/2015 Blood Pressure 1: 146/78 Code: 8480-6 BMI: 30.0 Code: 81716-2 Heart Rate 1: 66 bpm Height: 5'6" SpO2: 97% Weight: 186 lbs 05/12/2015 Blood Pressure 1: 120/70 Code: 8480-6 BMI: 29.9 Code: 21322-8 Heart Rate 1: 89 bpm Height: 5'6" SpO2: 95% Weight: 185 lbs 01/13/2015 Blood Pressure 1: 140/90 Code: 8480-6 BMI: 30.3 Code: 39068-6 Heart Rate 1: 84 bpm Height: 5'6" SpO2: 95% Weight: 188 lbs 12/16/2014 Blood Pressure 1: 140/82 Code: 8480-6 BMI: 29.5 Code: 87720-2 Heart Rate 1: 86 bpm Height: 5'6" [...] data Encounters Encounter Performer Location Codes Date ([id number]) [id number] EST. PATIENT, LEVEL IV Diagnosis: Essential (primary) hypertension[ICD10: I10] Diagnosis: Type 2 diabetes mellitus without complications[ICD10: E11.9] Diagnosis: Atrophy of thyroid (acquired)[ICD10: E03.4] Diagnosis: Other vitamin B12 deficiency anemias[ICD10: D51.8] Yarely Vega MD, [facility] CPT-4: 99974 09/05/2018 [id number] EST. PATIENT, LEVEL IV Diagnosis: Acute bronchitis due to other specified organisms[ICD10: J20.8] Diagnosis: Cough[ICD10: R05] Diagnosis: 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 factor deficiency[ICD10: D51.0] Brianna Vega MD, [facility] CPT-4: 14816 08/15/2018 ([id number]) 69176 EST. PATIENT, LEVEL IV Diagnosis: Essential (primary) hypertension[ICD10: I10] Diagnosis: Type 2 diabetes mellitus without complications[ICD10: E11.9] Yarely Vega MD, [facility] CPT-4: 09119 05/03/2018 ([id number]) 41564 EST. PATIENT, LEVEL III Diagnosis: Pain in left shoulder[ICD10: M25.512] Diagnosis: Pain in right shoulder[ICD10: M25.511] Yarely Vega MD, [facility] CPT-4: 38677 02/26/2018 ([id number]) 42280 EST. PATIENT, LEVEL III Diagnosis: Nausea[ICD10: R11.0] Diagnosis: Cough[ICD10: R05] Diagnosis: 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 factor deficiency[ICD10: D51.0] Janet Vega MD, [facility] CPT-4: 34818 12/12/2017 ([id number]) 87925 EST. PATIENT, LEVEL IV Diagnosis: Acute bronchitis due to Hemophilus influenzae[ICD10: J20.1] Diagnosis: Cough[ICD10: R05] Yarely Vega MD, [facility] CPT-4: 51216 12/04/2017 ([id number]) 53246 EST. PATIENT, LEVEL IV Diagnosis: Essential (primary) hypertension[ICD10: I10] Diagnosis: Cough[ICD10: R05] Diagnosis: Chronic atrial fibrillation[ICD10: I48.2] Yarely Vega MD, [facility] CPT-4: 06370 11/20/2017 ([id number]) 33157 EST. PATIENT, LEVEL III Diagnosis: Cough[ICD10: R05] Diagnosis: Acute upper respiratory infection, unspecified[ICD10: J06.9] Janet Vega MD, [facility] CPT-4: 56693 09/15/2017 [id number] EST. PATIENT, LEVEL III Diagnosis: Laceration without foreign body of right forearm, initial encounter[ICD10: S51.811A] Diagnosis: Other vitamin B12 deficiency anemias[ICD10: D51.8] Brianna Vega MD, [facility] CPT-4: 97097 09/07/2017 ([id number]) 11749 EST. PATIENT, LEVEL IV Diagnosis: Chronic atrial fibrillation[ICD10: I48.2] Diagnosis: Other allergic rhinitis[ICD10: J30.89] Diagnosis: Encounter for therapeutic drug level monitoring[ICD10: Z51.81] Yarely Vega MD, [facility] CPT-4: 65381 08/30/2017 ([id number]) 11038 EST. PATIENT, LEVEL IV Diagnosis: Atrophy of thyroid (acquired)[ICD10: E03.4] Diagnosis: Cough[ICD10: R05] Diagnosis: Laceration without foreign body of left forearm, initial encounter[ICD10: S51.812A] Diagnosis: Candidiasis of skin and nail[ICD10: B37.2] Diagnosis: Other vitamin B12 deficiency anemias[ICD10: D51.8] Diagnosis: Slow transit constipation[ICD10: K59.01] Yarely Vega MD, [facility] CPT-4: 86203 07/06/2017 [id number] EST. PATIENT, LEVEL III Diagnosis: Other vitamin B12 deficiency anemias[ICD10: D51.8] Diagnosis: Acute laryngopharyngitis[ICD10: J06.0] Diagnosis: Other allergic rhinitis[ICD10: J30.89] Brianna Vega MD, [facility] CPT- 4: 95079 06/20/2017 ([id number]) 58308 EST. PATIENT, LEVEL IV Diagnosis: Essential (primary) hypertension[ICD10: I10] Diagnosis: Chronic atrial fibrillation[ICD10: I48.2] Diagnosis: Atrophy of thyroid (acquired)[ICD10: E03.4] Diagnosis: 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 factor deficiency[ICD10: D51.0] Yarely Vega MD, [facility] CPT-4: 88208 05/25/2017 ([id number]) 18492 EST. PATIENT, LEVEL IV Diagnosis: Type 2 diabetes mellitus without complications[ICD10: E11.9] Diagnosis: Atrophy of thyroid (acquired)[ICD10: E03.4] Diagnosis: Chest pain on breathing[ICD10: R07.1] Diagnosis: Chondrocostal junction syndrome [Tietze][ICD10: M94.0] Diagnosis: Other fatigue[ICD10: R53.83] Yarely Vega MD, [facility] CPT-4: 90023 03/23/2017 ([id number]) 76421 EST. PATIENT, LEVEL IV Diagnosis: Type 2 diabetes mellitus without complications[ICD10: E11.9] Diagnosis: Essential (primary) hypertension[ICD10: I10] Diagnosis: Headache[ICD10: R51] Diagnosis: Atrophy of thyroid (acquired)[ICD10: E03.4] Diagnosis: Vitamin B12 deficiency anemia, unspecified[ICD10: D51.9] Yarely Vega MD, [facility] CPT-4: 79286 01/23/2017 [id number] EST. PATIENT, LEVEL III Diagnosis: Low back pain[ICD10: M54.5] Diagnosis: Pain in thoracic spine[ICD10: M54.6] Brianna Vega MD, [facility] CPT- 4: 65983 11/02/2016 ([id number]) 45416 EST. PATIENT, LEVEL IV Diagnosis: Essential (primary) hypertension[ICD10: I10] Diagnosis: Other vitamin B12 deficiency anemias[ICD10: D51.8] Diagnosis: Generalized abdominal pain[ICD10: R10.84] Yarely Vega MD, [facility] CPT-4: 82938 09/29/2016 ([id number]) 28515 EST. PATIENT, LEVEL IV Diagnosis: Essential (primary) hypertension[ICD10: I10] Yarely Vega MD, [facility] CPT-4: 84243 07/26/2016 ([id number]) 39347 EST. PATIENT, LEVEL IV Diagnosis: Benign lipomatous neoplasm of skin and subcutaneous tissue of right leg[ICD10: D17.23] Diagnosis: Pain in right ankle and joints of right foot[ICD10: M25.571] Diagnosis: Encounter for immunization[ICD10: Z23] Diagnosis: Vitamin B12 deficiency anemia, unspecified[ICD10: D51.9] Yarely Vega MD, [facility] CPT-4: 35669 05/25/2016 02919 EST. PATIENT, LEVEL III Diagnosis: Other chest pain[ICD10: R07.89] Diagnosis: Other vitamin B12 deficiency anemias[ICD10: D51.8] Brianna Vega MD, [facility] CPT-4: 69598 02/25/2016 ([id number]) 43485 EST. 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 PATIENT, LEVEL III Diagnosis: Other vitamin B12 deficiency anemias[ICD10: D51.8] Diagnosis: Acute nasopharyngitis [common cold][ICD10: J00] Diagnosis: Other allergic rhinitis[ICD10: J30.89] Brianna Vega MD, [facility] CPT- 4: 84829 11/11/2015 ([id number]) 11156 EST. PATIENT, LEVEL IV Diagnosis: Essential tremor[ICD10: G25.0] Diagnosis: Chronic fatigue, unspecified[ICD10: R53.82] Diagnosis: Other hypersomnia[ICD10: G47.19] Diagnosis: Essential (primary) hypertension[ICD10: I10] Yarely Vega MD, [facility] CPT-4: 25621 10/12/2015 [id number]) 70048 EST. PATIENT, LEVEL IV Diagnosis: Essential (primary) hypertension[ICD10: I10] Diagnosis: Chronic atrial fibrillation[ICD10: I48.2] Diagnosis: Abnormal levels of other serum enzymes[ICD10: R74.8] Diagnosis: Type 2 diabetes mellitus without complications[ICD10: E11.9] Diagnosis: Vitamin B12 deficiency anemia, unspecified[ICD10: D51.9] Yarely Vega MD, [facility] CPT-4: 67484 09/03/2015 ([id number]) 45351 EST. PATIENT, LEVEL III Diagnosis: Nausea[ICD10: R11.0] Diagnosis: Essential tremor[ICD10: G25.0] Diagnosis: Actinic keratosis[ICD10: L57.0] Yarely Vega MD, [facility] CPT-4: 78507 05/19/2015 [id number]) 48528 EST. PATIENT, LEVEL IV Diagnosis: Vitamin B12 deficiency anemia, unspecified[ICD10: D51.9] Diagnosis: Chronic atrial fibrillation[ICD10: I48.2] Diagnosis: Headache[ICD10: R51] Diagnosis: Chronic fatigue, unspecified[ICD10: R53.82] Diagnosis: Cervicalgia[ICD10: M54.2] Yarely Vega MD, [facility] CPT-4: 82974 05/12/2015 [id number]) 62715 EST. PATIENT, LEVEL IV Diagnosis: ESSENTIAL HYPERTENSION[ICD9: 401.9] Diagnosis: Afib[ICD9: 427.31] Diagnosis: Anxiety[ICD9: 300.00] Diagnosis: Insomnia[ICD9: 780.52] Yarely Vega MD, [facility] CPT-4: 59655 01/13/2015 ([id number]) OFFICE VISIT, NEW - LEVEL 4 Diagnosis: Hypothyroidism[ICD9: 244.9] Diagnosis: DIABETES TYPE II[ICD9: 250.00] Diagnosis: ESSENTIAL HYPERTENSION[ICD9: 401.9] Diagnosis: Afib[ICD9: 427.31] Diagnosis: Anxiety[ICD9: 300.00] Diagnosis: B12 deficiency[ICD9: 266.2] [facility] CPT-4: 58753 12/16/2014 Plan of Care Planned Activity Notes Codes Status Date Patient Education: Patient Medication Summary Completed 10/10/2018 Appointment: Injection 09/27/2018 Patient Education: Patient Medication Summary Completed 09/27/2018 [phone] [facility] ([facility] min) Moderate 09/11/2018 Appointment: Injection [...] control. 09/05/2018 Appointment: Yarely Vega WPtel: [phone] [facility] (15 min) Moderate 09/05/2018 Patient Education: Patient [...] Summary Completed 06/20/2018 App[facility]ment[phone] [facility] (30 min) Complex 06/07/2018 Appointment: Injection 06/06/2018 Patient Education: Patient Medication Summary Completed 06/06/2018 App[facility]ment: [facility] [phone] [facility] [place] (15 min) Moderate 05/31/2018 Appointment: [...] restart flonase 05/03/2018 Appointment: [phone] [facility] [place] (15 min) Moderate 05/03/2018 Patient [...] surgical intervention. 02/26/2018 App[facility]ment: [phone] [facility] [place] (15 min) Moderate 02/26/2018 Patient Education: Patient Medication Summary Completed 02/26/2018 Care Plan: Referral Order SNOMED-CT : [id number] Pending 02/26/2018 Appointment: Injection 02/08/2018 Patient Education: Patient Medication Summary Completed 02/08/2018 Appointment: Injection 01/24/2018 Patient Education: Patient Medication Summary Completed 01/24/2018 Appointment: Injection 01/10/2018 Patient Education: Patient Medication Summary Completed 01/10/2018 Appointment: Injection 12/27/2017 Patient Education: Patient Medication Summary Completed 12/27/2017 Appointment: Yarely Vega WPtel: [phone] [facility] (15 min) Moderate 12/26/2017 Visit Plan: Eqrqpx-rsphkgsbf-qgzytbta protonix-follow up with Dr Navarro as scheduled Cough-recent bronchitis-symptoms improved-call if symptoms do not completely resolve 12/12/2017 Appointment: Janet Fam WPtel: [phone] [place] (15 min) Moderate 12/12/2017 Patient Education: Patient Medication Summary Completed 12/12/2017 Visit Plan: Bronchitis - acute case of bronchitis identified. Pt has been given antibiotics, breathing treatments as appropriate, and pt has been instructed to call if symptoms are not improved, or if symptoms acutely worsen. Cough - rx for antibiotics as well as cough medication. 12/04/2017 Appointment: Yarely Vega WPtel: [phone] [facility] (15 min) Moderate 12/04/2017 Patient Education: [...] Fatigue/malaise -Pt was advsied to ask the Regional Marketing Director the following: ask the heart doctor if [...] becoming uncontrolled. 11/20/2017 Appointment: Yarely Vega WPtel: [facility] [place] (15 min) Moderate 11/20/2017 Patient Education: [...] any worse. 09/15/2017 Appointment: Janet Fam WPtel: [phone] [place] (15 min) Moderate 09/15/2017 Patient Education: Patient Medication Summary Completed 09/15/2017 Appointment: Yarely Vega WPtel: [facility] [place] (15 min) Moderate 09/11/2017 Visit Plan: Skin tear and Cellulitis - The patient was instructed in appropriate wound care. The patient was instructed to use the antibiotic ointment as per RX. The patient is to call for any change in symptoms, increase in size of the lesion, increase in pain, worsening redness, warmth, discharge. 09/07/2017 Appointment: Brianna Otoole WPtel: [facility]6 [facility] [place] (10 min) Simple 09/07/2017 Patient Education: Patient Medication Summary Completed 09/07/2017 Visit Plan: Lipoma - left ankle - talk to dr. barnes about possible surgery/laser for treatment of lipoma. Fatigue/malaise -Pt was advsied to ask the Regional Marketing Director the following: ask the heart doctor if there is an alternative to the amiodarone - you may be having side effects from the medication causing you to have pruritus (itching) and feeling like you have body aches, muscle aches, joint pain, fatigue, weight loss (decreased appetite), and pneumonia like symptoms. Congestion - claritin 10mg daily. 08/30/2017 Appointment: Yarely Vega WPtel: [phone] [facility] [place] (15 min) Moderate 08/30/2017 Patient Education: Patient Medication Summary Completed 08/30/2017 Appointment: Injection 08/24/2017 Appointment: Yarely Vega WPtel: [phone] [facility] [place] (15 min) Moderate 08/24/2017 Patient Education: [...] mucinex 07/06/2017 Appointment: Yarely Vega WPtel: [phone] [facility] [place] (15 min) Moderate 07/06/2017 Patient Education: [...] allergy spray. 06/20/2017 Appointment: Brianna Otoole WPtel: [facility] (15 min) Moderate 06/20/2017 Patient Education: Patient [...] Appointment: Injection 06/05/2017 Appointment: Brianna Otoole WPtel: [facility]7 [facility] [facility] - Annual Wellness Visit 06/05/2017 [...] q 3 months or q 6 m [facility] based on previous levels of control. 05/25/2017 Appointment: [facility] [phone] [facility] (15 min) Moderate 05/25/2017 Patient Education: [...] wall. Fatigue - pt to discuss with Regional Marketing Director about the possibility of amiodarone causing her fatigue/malaise. 03/23/2017 Appointment: [facility] [phone] [facility] [place] (15 min) Moderate 03/23/2017 Patient [...] twice daily. 01/23/2017 Appointment: [phone] [facility] (15 min) Moderate 01/23/2017 Patient Education: [...] not improve. 11/02/2016 [facility]ment[phone] (15 min) Moderate 11/02/2016 Patient Education: Patient [...] carafate 09/29/2016 Appointment: [facility] [phone] [facility] [place] (15 min) Moderate 09/29/2016 Patient Education: Patient Medication Summary Completed 09/29/2016 Appointment: [facility] [phone] [facility] [place] (15 min) Moderate 09/27/2016 Appointment: [facility] [phone] [facility] [place] (15 min) Moderate 09/20/2016 Appointment: [facility] [phone] [facility] [place] (15 min) Moderate 09/20/2016 Patient Education: Patient Medication Summary Completed 09/06/2016 Appointment: [facility] [phone] [facility] [place] (15 min) Moderate 08/30/2016 Appointment: [...] acute concerns. 07/26/2016 Appointment: Yarely Vega WPtel: [phone] [facility] [place] (15 min) Moderate 07/26/2016 Patient Education: [...] 05/30/2016 Appointment: [facility] [phone] [facility] [facility] - Annual Wellness Visit 05/30/2016 [...] bedtime 05/25/2016 Appointment: [facility] [phone] [facility] (15 min) Moderate 05/25/2016 Patient Education: Patient Medication Summary Completed 05/25/2016 Patient Education: Obesity Completed 05/25/2016 Care Plan: Referral Order SNOMED-CT : [id number] Pending 05/25/2016 Appointment: Injection 05/10/2016 Patient Education: Patient Medication Summary Completed 05/10/2016 Appointment: Injection 04/26/2016 Patient Education: Patient Medication Summary Completed 04/26/2016 Appointment: Injection 04/11/2016 Patient Education: Patient Medication Summary Completed 04/11/2016 Appointment: Injection 03/31/2016 Patient Education: Patient Medication Summary Completed 03/31/2016 Patient Education: Patient Medication Summary Completed 03/22/2016 Care Plan: SCREENINGMAMMOGRAPHYDIGITAL LOINC : 52815-7 Pending 03/22/2016 Appointment: Injection 03/15/2016 Patient Education: [...] concerns. 02/25/2016 Appointment: [facility] Oto[phone] [facility] (15 min) Moderate 02/25/2016 Patient Education: [...] the patients recent sleep study - recommended [place] home patient eval of pt - nocturnal [...] the patients recent sleep study - recommended [place] home patient eval of pt - nocturnal [...] case with Faiza's daughter who had left [facility]. She is interested in looking at assisted living facilities for her mom as Faiza's family is for assisted living placement sooner rather than later. 10/12/2015 Appointment: Yarely Vega WPtel: [facility] (15 min) Moderate 10/12/2015 Patient Education: [...] Completed 08/17/2015 Appointment: [facility] [phone] [facility] (15 min) Moderate 08/11/2015 Appointment: Injection [...] x 2 05/19/2015 Appointment: [facility] [phone] [facility] (30 min) Complex 05/19/2015 Patient Education: [...] prn alprazolam. 01/13/2015 Appointment: Yarely [facility]ega WPtel: [facility] (15 min) Moderate 01/13/2015 Patient Education: [...] current medications. 12/16/2014 Appointment: Janet Fam WPtel: [phone] [place] ([place] New Patient 12/16/2014 Patient [...] Car Cat Referral Appointment Requested Instructions Comment excedrin migraine for as needed use for [...] DOPA paperwork for health care surrogate. . Xxuhyi-gkbpdihlp-[id number] protonix-follow up with Dr Navarro as scheduled [...] Fatigue/malaise -Pt was advsied to ask the Regional Marketing Director the following: ask the heart doctor if [...] Fatigue/malaise -Pt was advsied to ask the Regional Marketing Director the following: ask the heart doctor if [...] wall. Fatigue - pt to discuss with Regional Marketing Director about the possibility of amiodarone causing her [...] the patients recent sleep study - recommended [place] home patient eval of pt - nocturnal [...] the patients recent sleep study - recommended [place] home patient eval of pt - nocturnal [...]
--- OUTSIDE RECORDS SUMMARY | 2018-12-05 16:45 | XMS REPORT | CCD ---
Author Author [facility] Organization [facility] Address [address] [place] [address] Phone Care Team Providers Care Health Physics Technician Name Role Phone PP Unavailable CCM Unavailable Summary Purpose Interface Exchange Insurance Providers Payer name Policy type / Coverage type Covered constitution party ID Effective Begin Date Effective End Date WPS Medicare Part B Medicare Part B [id number] Unknown Principal Life Insurance Medicare Part B [id number] Unknown [employer] in [place] Medicare Part B [id number] Unknown Family history Brother Diagnosis Age At Onset Heart Attack Unknown Mother Diagnosis Age At Onset Hypertension Unknown kidney disease Unknown Stroke Unknown Father Diagnosis Age At Onset Arthritis Unknown Social History Social History Element Codes Description Effective Dates Employment Unknown Retired worked at [employer] 11/20/2017 Marital status Unknown Single 12/16/[address]: 2046679 Former smoker 12/16/[address]: 028511608 Never drinks alcohol 12/16/2014 Allergies, Adverse Reactions, Alerts Substance Reaction Codes Entered Date Inactivated Date Status CODEINE RxNorm: 2670 05/25/2016 No Inactive Date Active ciprofloxacin RxNorm: 52256 12/16/2014 No Inactive Date Active MORPHINE SULFATE [...] (vit B-12) 1,000 mcg/mL injection solution RxNorm: 281452 Milliliter(s) Inj 10/10/2018 10/10/2018 Inactive Flonase Allergy Relief 50 mcg/actuation nasal spray,suspension RxNorm: 7561973 [place] 1 [place] NASAL BID 10/08/2018 04/05/2019 Active cyanocobalamin (vit B-12) 1,000 mcg/mL injection solution RxNorm: 828039 Milliliter(s) Inj 09/27/2018 09/27/2018 Inactive levothyroxine 137 mcg tablet RxNorm: 314325 1 Tablet(s) PO daily 09/12/2018 03/10/2019 Active levothyroxine 137 mcg tablet RxNorm: 872229 1 Tablet(s) PO daily 09/12/2018 09/11/2018 Inactive cyanocobalamin (vit B-12) 1,000 mcg/mL injection solution RxNorm: 000390 Milliliter(s) Inj 09/11/2018 09/11/2018 Inactive levothyroxine 125 mcg tablet RxNorm: 136905 TAKE 1 TABLET BY MOUTH EVERY DAY 09/10/2018 09/11/2018 Inactive Generic For:SYNTHROID 125MCG TAB 09/10/2018 12:06:52 PM cyanocobalamin (vit B-12) 1,000 mcg/mL injection solution RxNorm: 254422 Milliliter(s) Inj 08/29/2018 08/29/2018 Inactive alprazolam 0.25 mg tablet RxNorm: 186812 1 Tablet(s) PO BID 08/21/2018 02/16/2019 Active albuterol sulfate 2.5 mg/3 mL (0.083 %) solution for nebulization RxNorm: 966859 3 Milliliter(s) INH Q6 PRN 08/15/2018 No Stop Date Active Aricept 10 mg tablet RxNorm: 897497 1 Tablet(s) PO daily 08/15/2018 08/09/2019 Active liothyronine 5 mcg tablet RxNorm: 493124 Tablet(s) TAKE 1 TABLET BY MOUTH TWICE DAILY 08/15/2018 02/10/2019 Active cyanocobalamin (vit B-12) 1,000 mcg/mL injection solution RxNorm: 370466 Milliliter(s) Inj 08/15/2018 08/15/2018 Inactive Kenalog 40 mg/mL suspension for injection RxNorm: 6150230 Milliliter(s) Inj 08/15/2018 08/15/2018 Inactive doxycycline hyclate 100 mg capsule RxNorm: 6583059 1 Capsule(s) PO BID 08/15/2018 08/24/2018 Inactive cyanocobalamin (vit B-12) 1,000 mcg/mL injection solution RxNorm: 765328 Milliliter(s) Inj 08/01/2018 08/01/2018 Inactive cyanocobalamin (vit B-12) 1,000 mcg/mL injection solution RxNorm: 290281 Milliliter(s) Inj 07/19/2018 07/19/2018 Inactive hydrocodone 5 mg-acetaminophen 325 mg tablet RxNorm: 869502 1-2 Tablet(s) PO Q6 as needed for pain 07/18/2018 08/15/2018 Inactive betamethasone valerate 0.1 % topical ointment RxNorm: 227830 1 TOP BID 07/04/2018 07/03/2018 Inactive applying to skin under nose x 10 days cyanocobalamin (vit B-12) 1,000 mcg/mL injection solution RxNorm: 003746 Milliliter(s) Inj 07/04/2018 07/04/2018 Inactive betamethasone valerate 0.1 % topical ointment RxNorm: 337297 1 TOP BID 07/04/2018 07/13/2018 Inactive applying to skin under nose x 10 days Aricept 10 mg tablet RxNorm: 783735 Tablet(s) 1 Tablet(s) PO daily 06/25/2018 08/14/2018 Inactive cyanocobalamin (vit B-12) 1,000 mcg/mL injection solution RxNorm: 738875 Milliliter(s) Inj 06/20/2018 06/20/2018 Inactive hydrocodone 5 mg-acetaminophen 325 mg tablet RxNorm: 700605 1-2 Tablet(s) PO Q6 as needed for pain 06/20/2018 07/17/2018 Inactive Flonase Allergy Relief 50 mcg/actuation nasal spray,suspension RxNorm: 5549120 [place] 1 [place] NASAL BID 06/20/2018 10/07/2018 Inactive cyanocobalamin (vit B-12) 1,000 mcg/mL injection solution RxNorm: 014704 Milliliter(s) Inj 06/06/2018 06/06/2018 Inactive alprazolam 0.25 mg tablet RxNorm: 518223 1 Tablet(s) PO BID 05/25/2018 08/21/2018 Inactive hydrocodone 5 mg-acetaminophen 325 mg tablet RxNorm: 790367 1-2 Tablet(s) PO Q6 as needed for pain 05/24/2018 06/19/2018 Inactive cyanocobalamin (vit B-12) 1,000 mcg/mL injection solution RxNorm: 755892 Milliliter(s) Inj 05/24/2018 05/24/2018 Inactive cyanocobalamin (vit B-12) 1,000 mcg/mL injection solution RxNorm: 031875 Milliliter(s) Inj 05/09/2018 05/09/2018 Inactive Claritin 10 mg tablet RxNorm: 793262 TAKE 1 TABLET BY MOUTH ONCE DAILY 05/08/2018 05/02/2019 Active Generic For:CLARITIN 10MG 05/07/2018 9:13:47 AM cyanocobalamin (vit B-12) 1,000 mcg/mL injection solution RxNorm: 515210 INJECT ONE 1 ML EVERY TWO WEEKS 05/03/2018 04/03/2019 Active 05/03/2018 9:13:42 AM Mobic 15 mg tablet RxNorm: 775652 Tablet(s) 1 Tablet(s) PO daily 04/26/2018 04/20/2019 Active buspirone 15 mg tablet RxNorm: 323160 Tablet(s) TAKE 1 TABLET BY MOUTH TWICE DAILY 04/26/2018 04/20/2019 Active Generic For:BUSPAR 15MG 05/31/2017 9:19:20 AM Norvasc 5 mg tablet RxNorm: 704070 Tablet(s) 1 Tablet(s) PO daily 04/26/2018 04/20/2019 Active cyanocobalamin (vit B-12) 1,000 mcg/mL injection solution RxNorm: 906909 Milliliter(s) Inj 04/26/2018 04/26/2018 Inactive hydrocodone 5 mg-acetaminophen 325 mg tablet RxNorm: 249904 1-2 Tablet(s) PO Q6 as needed for pain 04/25/2018 05/23/2018 Inactive cyanocobalamin (vit B-12) 1,000 mcg/mL injection solution RxNorm: 474549 Milliliter(s) Inj 04/12/2018 04/12/2018 Inactive Topamax 25 mg tablet RxNorm: 039705 1 Tablet(s) PO BID 04/09/2018 05/02/2018 Inactive Generic For:TOPAMAX 25MG 12/06/2016 9:15:13 AM Zoloft 50 mg tablet RxNorm: 313492 TAKE 1 TABLET BY MOUTH ONCE DAILY 04/04/2018 12/29/2018 Active Generic For:ZOLOFT 50MG 04/04/2018 9:13:25 AM cyanocobalamin (vit B-12) 1,000 mcg/mL injection solution RxNorm: 646850 Milliliter(s) Inj 03/30/2018 03/30/2018 Inactive levothyroxine 125 mcg tablet RxNorm: 184425 TAKE 1 TABLET BY MOUTH EVERY DAY 03/26/2018 09/09/2018 Inactive Generic For:SYNTHROID 125MCG TAB 03/26/2018 9:15:59 AM liothyronine 5 mcg tablet RxNorm: 070998 TAKE 1 TABLET BY MOUTH TWICE DAILY 03/26/2018 08/14/2018 Inactive Generic For:CYTOMEL 5MCG 03/26/2018 9:15:54 AM hydrocodone 5 mg-acetaminophen 325 mg tablet RxNorm: 337398 1-2 Tablet(s) PO Q6 as needed for pain 03/19/2018 04/17/2018 Inactive cyanocobalamin (vit B-12) 1,000 mcg/mL injection solution RxNorm: 035657 Milliliter(s) Inj 03/16/2018 03/16/2018 Inactive Flonase Allergy Relief 50 mcg/actuation nasal spray,suspension RxNorm: 3926311 1 [place] NASAL BID 03/05/2018 06/19/2018 Inactive cyanocobalamin (vit B-12) 1,000 mcg/mL injection solution RxNorm: 667112 Milliliter(s) Inj 03/02/2018 03/02/2018 Inactive alprazolam 0.25 mg tablet RxNorm: 066186 1 Tablet(s) PO BID 02/28/2018 05/27/2018 Inactive cyanocobalamin (vit B-12) 1,000 mcg/mL injection solution RxNorm: 873021 Milliliter(s) Inj 02/08/2018 02/08/2018 Inactive cyanocobalamin (vit B-12) 1,000 mcg/mL injection solution RxNorm: 077502 Milliliter(s) Inj 01/24/2018 01/24/2018 Inactive albuterol sulfate 2.5 mg/3 mL (0.083 %) solution for nebulization RxNorm: 912453 3 Milliliter(s) INH Q6 PRN 01/24/2018 05/02/2018 Inactive Claritin 10 mg tablet RxNorm: 765692 1 Tablet(s) PO daily 01/15/2018 05/07/2018 Inactive cyanocobalamin (vit B-12) 1,000 mcg/mL injection solution RxNorm: 393859 Milliliter(s) Inj 01/10/2018 01/10/2018 Inactive hydrocodone 5 mg-acetaminophen 325 mg tablet RxNorm: 460947 1-2 Tablet(s) PO Q6 as needed for pain 01/09/2018 02/07/2018 Inactive cyanocobalamin (vit B-12) 1,000 mcg/mL injection solution RxNorm: 314779 Milliliter(s) Inj 12/27/2017 12/27/2017 Inactive cyanocobalamin (vit B-12) 1,000 mcg/mL injection solution RxNorm: 554323 1 Milliliter(s) Inj 12/12/2017 12/12/2017 Inactive Zofran ODT 4 mg disintegrating tablet RxNorm: 559500 1 Tablet(s) PO TID as needed 12/08/2017 12/09/2017 Inactive hydrocodone 2.5 mg-guaifenesin 200 mg/5 mL oral solution RxNorm: 261538 5 Milliliter(s) PO 12/04/2017 05/06/2018 Inactive doxycycline hyclate 100 mg capsule RxNorm: 5272734 1 Capsule(s) PO BID 12/04/2017 12/13/2017 Inactive cyanocobalamin (vit B-12) 1,000 mcg/mL injection solution RxNorm: 554962 Milliliter(s) Inj 12/01/2017 12/01/2017 Inactive Flonase Allergy Relief 50 mcg/actuation nasal spray,suspension RxNorm: 5800318 1 [place] NASAL BID 11/20/2017 2018 Inactive cyanocobalamin (vit B-12) 1,000 mcg/mL injection solution RxNorm: 944306 1 Milliliter(s) Inj 11/17/2017 11/17/2017 Inactive hydrocodone 5 mg-acetaminophen 325 mg tablet RxNorm: 899904 1-2 Tablet(s) PO Q6 as needed for pain 11/16/2017 12/15/2017 Inactive cyanocobalamin (vit B-12) 1,000 mcg/mL injection solution RxNorm: 454348 1 Milliliter(s) Inj 11/02/2017 11/02/2017 Inactive hydrocodone 5 mg-acetaminophen 325 mg tablet RxNorm: 551349 1-2 Tablet(s) PO Q6 as needed for pain 10/25/2017 11/15/2017 Inactive Claritin 10 mg tablet RxNorm: 001089 1 Tablet(s) PO daily 10/25/2017 11/19/2017 Inactive albuterol sulfate 2.5 mg/3 mL (0.083 %) solution for nebulization RxNorm: 895786 3 Milliliter(s) INH Q6 PRN 10/25/2017 01/23/2018 Inactive Claritin 10 mg tablet RxNorm: 550899 1 Tablet(s) PO daily 10/25/2017 10/24/2017 Inactive cyanocobalamin (vit B-12) 1,000 mcg/mL injection solution RxNorm: 798911 1 Milliliter(s) Inj 10/20/2017 10/20/2017 Inactive Zoloft 50 mg tablet RxNorm: 260646 TAKE 1 TABLET BY MOUTH ONCE DAILY 10/13/2017 04/03/2018 Inactive Generic For:ZOLOFT 50MG 10/13/2017 8:59:44 AM cyanocobalamin (vit B-12) 1,000 mcg/mL injection solution RxNorm: 377061 Milliliter(s) Inj 10/06/2017 10/06/2017 Inactive liothyronine 5 mcg tablet RxNorm: 704081 TAKE 1 TABLET BY MOUTH TWICE DAILY 10/03/2017 03/25/2018 Inactive Generic For:CYTOMEL 5MCG 10/03/2017 9:13:38 AM cyanocobalamin (vit B-12) 1,000 mcg/mL injection solution RxNorm: 454031 Milliliter(s) Inj 09/21/2017 09/21/2017 Inactive albuterol sulfate 2.5 mg/3 mL (0.083 %) solution for nebulization RxNorm: 747090 3 Milliliter(s) INH Q6 PRN 09/21/2017 10/24/2017 Inactive hydrocodone 5 mg-acetaminophen 325 mg tablet RxNorm: 416402 1-2 Tablet(s) PO Q6 as needed for pain 09/21/2017 10/20/2017 Inactive Kenalog 40 mg/mL suspension for injection RxNorm: 1643364 Milliliter(s) Inj 09/15/2017 09/15/2017 Inactive Keflex 500 mg capsule RxNorm: 720972 1 Capsule(s) PO TID 09/07/2017 09/16/2017 Inactive Please deliver to patient cyanocobalamin (vit B-12) 1,000 mcg/mL injection solution RxNorm: 258877 Milliliter(s) Inj 09/07/2017 09/07/2017 Inactive alprazolam 0.25 mg tablet RxNorm: 282291 1 Tablet(s) PO BID 09/06/2017 02/27/2018 Inactive Aricept 10 mg tablet RxNorm: 176667 1 Tablet(s) PO daily 09/06/2017 06/24/2018 Inactive hydrocodone 5 mg-acetaminophen 325 mg tablet RxNorm: 199583 1-2 Tablet(s) PO Q6 as needed for pain 08/24/2017 09/20/2017 Inactive cyanocobalamin (vit B-12) 1,000 mcg/mL injection solution RxNorm: 370447 Milliliter(s) Inj 08/24/2017 08/24/2017 Inactive Norvasc 5 mg tablet RxNorm: 955442 1 Tablet(s) PO daily 08/18/2017 04/25/2018 Inactive nystatin 100,000 unit/gram topical powder RxNorm: 248502 1 Gram(s) TOP QID 08/17/2017 08/26/2017 Inactive hydrocodone 5 mg-acetaminophen 325 mg tablet RxNorm: 505668 1-2 Tablet(s) PO Q6 as needed for pain 07/25/2017 08/23/2017 Inactive Tamiflu 75 mg capsule RxNorm: 261252 1 Capsule(s) PO BID 07/24/2017 12/11/2017 Inactive nystatin 100,000 unit/gram topical powder RxNorm: 038916 1 Gram(s) TOP QID 07/14/2017 07/22/2017 Inactive levothyroxine 125 mcg tablet RxNorm: 522085 Tablet(s) 1 Tablet(s) PO daily 07/10/2017 01/05/2018 Inactive nystatin 100,000 unit/gram topical powder RxNorm: 993166 1 Gram(s) TOP QID 07/06/2017 07/13/2017 Inactive cyanocobalamin (vit B-12) 1,000 mcg/mL injection solution RxNorm: 901822 Milliliter(s) Inj 07/06/2017 07/06/2017 Inactive Kenalog 40 mg/mL suspension for injection RxNorm: 3013275 1 Milliliter(s) Inj 06/20/2017 06/20/2017 Inactive doxycycline hyclate 100 mg capsule RxNorm: 3614343 1 Capsule(s) PO BID 06/20/2017 06/26/2017 Inactive cyanocobalamin (vit B-12) 1,000 mcg/mL injection solution RxNorm: 761301 Milliliter(s) Inj 06/20/2017 06/20/2017 Inactive Keflex 500 mg capsule RxNorm: 983411 1 Capsule(s) PO TID 06/14/2017 06/23/2017 Inactive Please deliver to patient Mobic 15 mg tablet RxNorm: 747383 1 Tablet(s) PO daily 06/14/2017 04/25/2018 Inactive cyanocobalamin (vit B-12) 1,000 mcg/mL injection solution RxNorm: 953124 Milliliter(s) Inj 06/05/2017 06/05/2017 Inactive buspirone 15 mg tablet RxNorm: 774162 TAKE 1 TABLET BY MOUTH TWICE DAILY 05/31/2017 04/25/2018 Inactive Generic For:BUSPAR 15MG 05/31/2017 9:19:20 AM cyanocobalamin (vit B-12) 1,000 mcg/mL injection solution RxNorm: 945465 Milliliter(s) Inj 05/25/2017 05/25/2017 Inactive hydrocodone 5 mg-acetaminophen 325 mg tablet RxNorm: 510233 1-2 Tablet(s) PO Q6 as needed for pain 05/25/2017 06/23/2017 Inactive amiodarone 200 mg tablet RxNorm: 397101 1/2 Tablet(s) PO daily 05/22/2017 No Stop Date Active cardiology decreased to 100mg daily cyanocobalamin (vit B-12) 1,000 mcg/mL injection solution RxNorm: 394357 Milliliter(s) Inj 05/16/2017 05/16/2017 Inactive Zofran ODT 4 mg disintegrating tablet RxNorm: 609921 1 Tablet(s) PO TID as needed 05/03/2017 05/04/2017 Inactive hydrocodone 5 mg-acetaminophen 325 mg tablet RxNorm: 334022 1-2 Tablet(s) PO Q6 as needed for pain 05/01/2017 05/05/2017 Inactive cyanocobalamin (vit B-12) 1,000 mcg/mL injection solution RxNorm: 430448 1 Milliliter(s) Inj 05/01/2017 05/01/2017 Inactive cyanocobalamin (vit B-12) 1,000 mcg/mL injection solution RxNorm: 651040 INJECT ONE 1 ML EVERY TWO WEEKS 04/26/2017 12/04/2018 Active 04/26/2017 9:08:52 AM Zoloft 50 mg tablet RxNorm: 833101 Tablet(s) TAKE 1 TABLET BY MOUTH DAILY 04/25/2017 10/12/2017 Inactive Generic For:ZOLOFT 50MG cyanocobalamin (vit B-12) 1,000 mcg/mL injection solution RxNorm: 085430 Milliliter(s) Inj 04/18/2017 04/18/2017 Inactive liothyronine 5 mcg tablet RxNorm: 371003 1 Tablet(s) PO BID 04/13/2017 10/02/2017 Inactive cyanocobalamin (vit B-12) 1,000 mcg/mL injection solution RxNorm: 899481 Milliliter(s) Inj 04/06/2017 04/06/2017 Inactive hydrocodone 5 mg-acetaminophen 325 mg tablet RxNorm: 698659 1-2 Tablet(s) PO Q6 as needed for pain 04/06/2017 04/10/2017 Inactive cyanocobalamin (vit B-12) 1,000 mcg/mL injection solution RxNorm: 797947 Milliliter(s) Inj 03/22/2017 03/22/2017 Inactive alprazolam 0.25 mg tablet RxNorm: 681811 1 Tablet(s) PO BID 03/17/2017 12/11/2017 Inactive alprazolam 0.25 mg tablet RxNorm: 248623 1 Tablet(s) PO BID 03/16/2017 09/05/2017 Inactive hydrocodone 5 mg-acetaminophen 325 mg tablet RxNorm: 040867 1-2 Tablet(s) PO Q6 as needed for pain 03/09/2017 03/13/2017 Inactive cyanocobalamin (vit B-12) 1,000 mcg/mL injection solution RxNorm: 445688 Milliliter(s) Inj 03/09/2017 03/09/2017 Inactive cyanocobalamin (vit B-12) 1,000 mcg/mL injection solution RxNorm: 900401 Milliliter(s) Inj 02/23/2017 02/23/2017 Inactive cyanocobalamin (vit B-12) 1,000 mcg/mL injection solution RxNorm: 518153 Milliliter(s) Inj 02/09/2017 02/09/2017 Inactive hydrocodone 5 mg-acetaminophen 325 mg tablet RxNorm: 880769 1-2 Tablet(s) PO Q6 as needed for pain 02/08/2017 02/12/2017 Inactive Topamax 25 mg tablet RxNorm: 089278 1 Tablet(s) PO BID 01/23/2017 05/22/2017 Inactive Generic For:TOPAMAX 25MG 12/06/2016 9:15:13 AM cyanocobalamin (vit B-12) 1,000 mcg/mL injection solution RxNorm: 097347 Milliliter(s) Inj 01/23/2017 01/23/2017 Inactive cyanocobalamin (vit B-12) 1,000 mcg/mL injection solution RxNorm: 256285 Milliliter(s) Inj 01/10/2017 01/10/2017 Inactive hydrocodone 5 mg-acetaminophen 325 mg tablet RxNorm: 669832 1-2 Tablet(s) PO Q6 as needed for pain 01/09/2017 01/13/2017 Inactive cyanocobalamin (vit B-12) 1,000 mcg/mL injection solution RxNorm: 953795 1 Milliliter(s) Inj 12/28/2016 12/28/2016 Inactive cyanocobalamin (vit B-12) 1,000 mcg/mL injection solution RxNorm: 535674 Milliliter(s) Inj 12/14/2016 12/14/2016 Inactive buspirone 15 mg tablet RxNorm: 220082 1 Tablet(s) PO BID 12/12/2016 05/30/2017 Inactive hydrocodone 5 mg-acetaminophen 325 mg tablet RxNorm: 658234 1-2 Tablet(s) PO Q6 as needed for pain 12/08/2016 12/12/2016 Inactive Topamax 25 mg tablet RxNorm: 296921 TAKE 1 TABLET BY MOUTH EVERY DAY AT BEDTIME 12/06/2016 01/22/2017 Inactive Generic For:TOPAMAX 25MG 12/06/2016 9:15:13 AM Lac-Hydrin Five 5 % lotion RxNorm: 266616 1 Gram(s) TOP daily 12/02/2016 05/02/2018 Inactive cyanocobalamin (vit B-12) 1,000 mcg/mL injection solution RxNorm: 857086 Milliliter(s) Inj 11/24/2016 11/24/2016 Inactive Ceftin 500 mg tablet RxNorm: 015040 1 Tablet(s) PO BID 11/11/2016 06/13/2017 Inactive Cipro 500 mg tablet RxNorm: 323204 1 Tablet(s) PO BID 11/11/2016 11/10/2016 Inactive Cipro 500 mg tablet RxNorm: 848233 1 Tablet(s) PO BID 11/11/2016 11/11/2016 Inactive cyanocobalamin (vit B-12) 1,000 mcg/mL injection solution RxNorm: 107093 1 Milliliter(s) Inj 11/07/2016 11/07/2016 Inactive hydrocodone 5 mg-acetaminophen 325 mg tablet RxNorm: 439727 1-2 Tablet(s) PO Q6 as needed for pain 11/02/2016 11/06/2016 Inactive cyanocobalamin (vit B-12) 1,000 mcg/mL injection solution RxNorm: 466638 Milliliter(s) Inj 10/24/2016 10/24/2016 Inactive levothyroxine 125 mcg tablet RxNorm: 406681 Tablet(s) 1 Tablet(s) PO daily 10/24/2016 04/21/2017 Inactive liothyronine 5 mcg tablet RxNorm: 579759 1 Tablet(s) PO BID 10/24/2016 04/12/2017 Inactive hydrocodone 5 mg-acetaminophen 325 mg tablet RxNorm: 598342 1-2 Tablet(s) PO Q6 as needed for pain 10/17/2016 10/21/2016 Inactive Keflex 500 mg capsule RxNorm: 107421 1 Capsule(s) PO TID 10/07/2016 10/06/2016 Inactive Keflex 500 mg capsule RxNorm: 162764 1 Capsule(s) PO TID 10/07/2016 10/16/2016 Inactive Please deliver to patient cyanocobalamin (vit B-12) 1,000 mcg/mL injection solution RxNorm: 370519 1 Milliliter(s) Inj 09/29/2016 09/29/2016 Inactive alprazolam 0.25 mg tablet RxNorm: 106605 1 Tablet(s) PO BID 09/20/2016 03/16/2017 Inactive Cozaar 100 mg tablet RxNorm: 789979 1 Tablet(s) PO daily 09/14/2016 No Stop Date Active metoprolol tartrate 50 mg tablet RxNorm: 245782 1/2 Tablet(s) PO BID 09/14/2016 12/12/2016 Inactive Zoloft 50 mg tablet RxNorm: 366057 Tablet(s) TAKE 1 TABLET BY MOUTH DAILY 09/14/2016 03/12/2017 Inactive Generic For:ZOLOFT 50MG liothyronine 5 mcg tablet RxNorm: 511819 1 Tablet(s) PO BID 09/14/2016 10/23/2016 Inactive Calmoseptine 0.44 %-20.6 % topical ointment RxNorm: 693506 1 Application TOP BID and as needed to sore on buttocks 09/07/2016 No Stop Date Active cyanocobalamin (vit B-12) 1,000 mcg/mL injection solution RxNorm: 701221 Milliliter(s) Inj 08/29/2016 08/29/2016 Inactive hydrocodone 5 mg-acetaminophen 325 mg tablet RxNorm: 027195 1-2 Tablet(s) PO Q6 as needed for pain 08/29/2016 10/16/2016 Inactive levothyroxine 125 mcg tablet RxNorm: 529372 1 Tablet(s) PO daily 08/25/2016 10/23/2016 Inactive Topamax 25 mg tablet RxNorm: 143331 TAKE 1 TABLET BY MOUTH EVERY DAY AT BEDTIME 08/17/2016 12/05/2016 Inactive Generic For:TOPAMAX 25MG 08/17/2016 2:14:37 PM hydrocodone 5 mg-acetaminophen 325 mg tablet RxNorm: 203031 1-2 Tablet(s) PO Q6 as needed for pain 08/11/2016 08/28/2016 Inactive hydrocodone 5 mg-acetaminophen 325 mg tablet RxNorm: 841934 1 -2 Tablet(s) PO Q6 as needed for pain 08/11/2016 08/18/2016 Inactive hydrocodone 5 mg-acetaminophen 325 mg tablet RxNorm: 870666 1 Tablet(s) PO Q6 as needed for pain 08/05/2016 08/10/2016 Inactive cyanocobalamin (vit B-12) 1,000 mcg/mL injection solution RxNorm: 178805 Milliliter(s) Inj 08/04/2016 08/04/2016 Inactive Norvasc 10 mg tablet RxNorm: 480793 1 Tablet(s) PO daily 07/26/2016 07/20/2017 Inactive alprazolam 0.25 mg tablet RxNorm: 735789 1 Tablet(s) PO QHS 07/21/2016 09/19/2016 Inactive Norvasc 5 mg tablet RxNorm: 348267 1 Tablet(s) PO daily 07/21/2016 07/25/2016 Inactive levothyroxine 125 mcg tablet RxNorm: 601051 1 Tablet(s) PO daily 07/21/2016 12/11/2017 Inactive cyanocobalamin (vit B-12) 1,000 mcg/mL injection solution RxNorm: 272452 Milliliter(s) Inj 07/21/2016 07/21/2016 Inactive Zoloft 50 mg tablet RxNorm: 110274 Tablet(s) TAKE 1 TABLET BY MOUTH DAILY 07/21/2016 09/13/2016 Inactive Generic For:ZOLOFT 50MG cyanocobalamin (vit B-12) 1,000 mcg/mL injection solution RxNorm: 017281 1 Milliliter(s) Inj 07/05/2016 07/05/2016 Inactive cyanocobalamin (vit B-12) 1,000 mcg/mL injection solution RxNorm: 282199 1 Milliliter(s) Inj 06/22/2016 06/22/2016 Inactive cyanocobalamin (vit B-12) 1,000 mcg/mL injection solution RxNorm: 421639 Milliliter(s) Inj 06/09/2016 06/09/2016 Inactive Aricept 10 mg tablet RxNorm: 278837 1 Tablet(s) PO daily 05/27/2016 05/21/2017 Inactive Mobic 15 mg tablet RxNorm: 959270 1 Tablet(s) PO daily 05/27/2016 05/21/2017 Inactive levothyroxine 125 mcg tablet RxNorm: 909239 1 Tablet(s) PO daily 05/25/2016 07/20/2016 Inactive cyanocobalamin (vit B-12) 1,000 mcg/mL injection solution RxNorm: 418570 1 Milliliter(s) Inj 05/25/2016 05/25/2016 Inactive doxycycline hyclate 100 mg capsule RxNorm: 1037481 1 Capsule(s) PO BID 05/16/2016 05/15/2016 Inactive doxycycline hyclate 100 mg capsule RxNorm: 3444746 1 Capsule(s) PO BID 05/16/2016 05/22/2016 Inactive cyanocobalamin (vit B-12) 1,000 mcg/mL injection solution RxNorm: 287880 Milliliter(s) Inj 05/10/2016 05/10/2016 Inactive cyanocobalamin (vit B-12) 1,000 mcg/mL injection solution RxNorm: 229627 Milliliter(s) Inj 04/26/2016 04/26/2016 Inactive Topamax 25 mg tablet RxNorm: 488689 1 Tablet(s) PO QPM 04/22/2016 08/16/2016 Inactive cyanocobalamin (vit B-12) 1,000 mcg/mL injection solution RxNorm: 478919 Milliliter(s) 1 Milliliter(s) Inj [id number] 04/11/2016 12/31/2017 Inactive liothyronine 5 mcg tablet RxNorm: 238953 1 Tablet(s) PO BID 04/11/2016 09/13/2016 Inactive cyanocobalamin (vit B-12) 1,000 mcg/mL injection solution RxNorm: 595969 Milliliter(s) Inj 04/11/2016 04/11/2016 Inactive cyanocobalamin (vit B-12) 1,000 mcg/mL injection solution RxNorm: 137553 Milliliter(s) Inj 03/31/2016 03/31/2016 Inactive cyanocobalamin (vit B-12) 1,000 mcg/mL injection solution RxNorm: 869949 1 Milliliter(s) Inj 03/15/2016 03/15/2016 Inactive levothyroxine 125 mcg tablet RxNorm: 226416 1 Tablet(s) PO daily 2016 03/03/2016 Inactive levothyroxine 125 mcg tablet RxNorm: 404326 1 Tablet(s) PO daily 2016 05/24/2016 Inactive cyanocobalamin (vit B-12) 1,000 mcg/mL injection solution RxNorm: 198419 Milliliter(s) Inj 02/25/2016 02/25/2016 Inactive cyanocobalamin (vit B-12) 1,000 mcg/mL injection solution RxNorm: 412958 1 Milliliter(s) Inj 02/02/2016 02/02/2016 Inactive sucralfate 1 gram tablet RxNorm: 042817 1 Tablet(s) PO QHS 01/25/2016 No Stop Date Active amiodarone 200 mg tablet RxNorm: 454225 1/2 Tablet(s) PO BID 01/25/2016 05/21/2017 Inactive cyanocobalamin (vit B-12) 1,000 mcg/mL injection solution RxNorm: 386434 Milliliter(s) Inj 01/18/2016 01/18/2016 Inactive cyanocobalamin (vit B-12) 1,000 mcg/mL injection solution RxNorm: 831842 Milliliter(s) Inj 12/29/2015 12/29/2015 Inactive Topamax 25 mg tablet RxNorm: 879959 1 Tablet(s) PO QPM 12/08/2015 04/05/2016 Inactive cyanocobalamin (vit B-12) 1,000 mcg/mL injection solution RxNorm: 299168 Milliliter(s) Inj 12/08/2015 12/08/2015 Inactive Bactrim DS 800 mg-160 mg tablet RxNorm: 244551 1 Tablet(s) PO BID 11/23/2015 11/22/2015 Inactive cyanocobalamin (vit B-12) 1,000 mcg/mL injection solution RxNorm: 317867 Milliliter(s) Inj 11/23/2015 11/23/2015 Inactive Bactrim DS 800 mg-160 mg tablet RxNorm: 669508 1 Tablet(s) PO BID 11/23/2015 11/29/2015 Inactive cyanocobalamin (vit B-12) 1,000 mcg/mL injection solution RxNorm: 901526 Milliliter(s) Inj 11/11/2015 11/11/2015 Inactive amoxicillin 500 mg capsule RxNorm: 371717 1 Capsule(s) PO TID 11/10/2015 11/19/2015 Inactive Zithromax Z-Henrique 250 mg tablet RxNorm: 530471 1 Tablet(s) PO UD 11/10/2015 01/24/2016 Inactive zpack x 1 amoxicillin 500 mg capsule RxNorm: 281963 1 Capsule(s) PO TID 11/10/2015 11/09/2015 Inactive cyanocobalamin (vit B-12) 1,000 mcg/mL injection solution RxNorm: 366018 1 Milliliter(s) Inj 10/29/2015 10/29/2015 Inactive Harbeson 3 capsule RxNorm: 1 Capsule(s) PO QAM , 2 Capsules at noon, 1 Capsule QHS 10/13/2015 No Stop Date Active potassium chloride ER 20 mEq tablet,extended release RxNorm: 620677 2 Tablet(s) PO daily at noon 10/13/2015 No Stop Date Active alprazolam 0.25 mg tablet RxNorm: 953201 1 Tablet(s) PO QHS 10/13/2015 07/20/2016 Inactive amiodarone 200 mg tablet RxNorm: 808692 1 Tablet(s) PO BID 10/13/2015 01/24/2016 Inactive cyanocobalamin (vit B-12) 1,000 mcg/mL injection solution RxNorm: 310866 1 Milliliter(s) Inj 10/12/2015 10/12/2015 Inactive Zofran 4 mg tablet RxNorm: 562202 1 Tablet(s) PO daily as needed 10/07/2015 05/24/2016 Inactive Zoloft 50 mg tablet RxNorm: 142658 TAKE 1 TABLET BY MOUTH DAILY 10/05/2015 05/01/2016 Inactive Generic For:ZOLOFT 50MG cyanocobalamin (vit B-12) 1,000 mcg/mL injection solution RxNorm: 348370 1 Milliliter(s) Inj 09/29/2015 09/29/2015 Inactive cyanocobalamin (vit B-12) 1,000 mcg/mL injection solution RxNorm: 927004 1 Milliliter(s) Inj 09/17/2015 09/17/2015 Inactive Norvasc 5 mg tablet RxNorm: 691530 1 Tablet(s) PO daily 09/17/2015 07/20/2016 Inactive liothyronine 5 mcg tablet RxNorm: 896202 1 Tablet(s) PO BID 09/17/2015 03/14/2016 Inactive Zoloft 50 mg tablet RxNorm: 777566 1 Tablet(s) PO daily 09/17/2015 10/04/2015 Inactive buspirone 15 mg tablet RxNorm: 121658 1 Tablet(s) PO BID 09/17/2015 09/10/2016 Inactive buspirone 15 mg tablet RxNorm: 147747 1 Tablet(s) PO BID 09/14/2015 09/16/2015 Inactive Topamax 25 mg tablet RxNorm: 693368 1 Tablet(s) PO QPM 09/03/2015 12/07/2015 Inactive cyanocobalamin (vit B-12) 1,000 mcg/mL injection solution RxNorm: 251179 1 Milliliter(s) Inj 09/03/2015 09/03/2015 Inactive cyanocobalamin (vit B-12) 1,000 mcg/mL injection solution RxNorm: 306013 Milliliter(s) Inj 08/17/2015 08/17/2015 Inactive cyanocobalamin (vit B-12) 1,000 mcg/mL injection solution RxNorm: 855945 Milliliter(s) Inj 08/06/2015 08/06/2015 Inactive levothyroxine 150 mcg tablet RxNorm: 033619 1 Tablet(s) PO daily 07/22/2015 03/03/2016 Inactive Aricept 10 mg tablet RxNorm: 254782 1 Tablet(s) PO daily 07/22/2015 05/26/2016 Inactive Mobic 15 mg tablet RxNorm: 162903 1 Tablet(s) PO daily 07/22/2015 05/26/2016 Inactive cyanocobalamin (vit B-12) 1,000 mcg/mL injection solution RxNorm: 319157 Milliliter(s) Inj 07/22/2015 07/22/2015 Inactive liothyronine 5 mcg tablet RxNorm: 719167 1 Tablet(s) PO BID 07/22/2015 09/16/2015 Inactive cyanocobalamin (vit B-12) 1,000 mcg/mL injection solution RxNorm: 380210 Milliliter(s) Inj 07/08/2015 07/08/2015 Inactive cyanocobalamin (vit B-12) 1,000 mcg/mL injection solution RxNorm: 937003 Milliliter(s) Inj 06/23/2015 06/23/2015 Inactive cyanocobalamin (vit B-12) 1,000 mcg/mL injection solution RxNorm: 612865 1 Milliliter(s) Inj 06/08/2015 06/08/2015 Inactive cyanocobalamin (vit B-12) 1,000 mcg/mL injection solution RxNorm: 052214 Milliliter(s) Inj 05/27/2015 05/27/2015 Inactive Aricept 10 mg tablet RxNorm: 117608 1 Tablet(s) PO daily 05/20/2015 07/21/2015 Inactive Zofran 4 mg tablet RxNorm: 402315 1 Tablet(s) PO daily as needed 05/20/2015 06/18/2015 Inactive alprazolam 0.25 mg tablet RxNorm: 419921 1 Tablet(s) PO BID 05/20/2015 10/12/2015 Inactive Mobic 15 mg tablet RxNorm: 175502 1 Tablet(s) PO daily 05/20/2015 07/21/2015 Inactive tramadol ER 100 mg tablet,extended release 24 hr RxNorm: 987332 1 Tablet(s) PO Q6 as needed 05/13/2015 No Stop Date Active cyanocobalamin (vit B-12) 1,000 mcg/mL injection solution RxNorm: 315316 1 Milliliter(s) Inj 05/12/2015 05/12/2015 Inactive Topamax 25 mg tablet RxNorm: 581900 1 Tablet(s) PO BID (start at one pill at bedtime x 1week then twice daily thereafter) 05/12/2015 09/02/2015 Inactive cyanocobalamin (vit B-12) 1,000 mcg/mL injection kit RxNorm: 944750 kit Inj 04/30/2015 04/30/2015 Inactive cyanocobalamin (vit B-12) 1,000 mcg/mL injection solution RxNorm: 601389 Milliliter(s) Inj 04/16/2015 04/16/2015 Inactive levothyroxine 150 mcg tablet RxNorm: 284475 1 Tablet(s) PO daily 04/08/2015 07/21/2015 Inactive cyanocobalamin (vit B-12) 1,000 mcg/mL injection solution RxNorm: 319715 Milliliter(s) 1 Milliliter(s) Inj [id number] 04/08/2015 04/10/2016 Inactive Cytomel 5 mcg tablet RxNorm: 615911 1 Tablet(s) PO BID 04/08/2015 10/12/2015 Inactive Cytomel 5 mcg tablet RxNorm: 708382 1 Tablet(s) PO BID 04/07/2015 04/07/2015 Inactive Cytomel 5 mcg tablet RxNorm: 377937 1 Tablet(s) PO BID 04/07/2015 04/06/2015 Inactive cyanocobalamin (vit B-12) 1,000 mcg/mL injection solution RxNorm: 626781 Milliliter(s) Inj 04/02/2015 04/02/2015 Inactive cyanocobalamin (vit B-12) 1,000 mcg/mL injection solution RxNorm: 324057 Milliliter(s) Inj 03/18/2015 03/18/2015 Inactive cyanocobalamin (vit B-12) 1,000 mcg/mL injection solution RxNorm: 663188 Milliliter(s) 1 Milliliter(s) Inj [id number] 03/18/2015 04/07/2015 Inactive cyanocobalamin (vit B-12) 1,000 mcg/mL injection solution RxNorm: 601184 1 Milliliter(s) Inj [id number] 03/16/2015 03/17/2015 Inactive cyanocobalamin (vit B-12) 1,000 mcg/mL injection solution RxNorm: 120579 Milliliter(s) Inj 03/03/2015 03/03/2015 Inactive cyanocobalamin (vit B-12) 1,000 mcg/mL injection solution RxNorm: 276167 Milliliter(s) Inj 02/18/2015 02/18/2015 Inactive cyanocobalamin (vit B-12) 1,000 mcg/mL injection solution RxNorm: 923918 Milliliter(s) Inj 02/04/2015 02/04/2015 Inactive cyanocobalamin (vit B-12) 1,000 mcg/mL injection solution RxNorm: 109817 Milliliter(s) Inj 01/22/2015 01/22/2015 Inactive Lac-Hydrin Five 5 % lotion RxNorm: 279528 1 TOP daily 01/13/2015 03/13/2015 Inactive Lac-Hydrin Five 5 % lotion RxNorm: 027210 1 TOP daily 01/13/2015 01/12/2015 Inactive cyanocobalamin (vit B-12) 1,000 mcg/mL injection solution RxNorm: 890317 Milliliter(s) Inj 01/08/2015 01/08/2015 Inactive cyanocobalamin (vit B-12) 1,000 mcg/mL injection solution RxNorm: 928136 Milliliter(s) Inj 12/25/2014 12/25/2014 Inactive levothyroxine 150 mcg tablet RxNorm: 245363 1 Tablet(s) PO daily 12/24/2014 04/07/2015 Inactive tramadol 50 mg tablet RxNorm: 057133 1-2 Tablet(s) PO Q6 as needed 12/17/2014 05/12/2015 Inactive alprazolam 0.25 mg tablet RxNorm: 730593 1 Tablet(s) PO BID 12/17/2014 04/15/2015 Inactive Pradaxa 150 mg capsule RxNorm: 3064474 1 Capsule(s) PO BID 12/16/2014 No Stop Date Active metoprolol tartrate 50 mg tablet RxNorm: 657288 1/2 Tablet(s) PO BID 12/16/2014 09/13/2016 Inactive buspirone 15 mg tablet RxNorm: 691181 1 Tablet(s) PO BID 12/16/2014 09/13/2015 Inactive cyanocobalamin (vit B-12) 1,000 mcg/mL injection solution RxNorm: 471615 1 Milliliter(s) Inj O0sjirs 12/16/2014 03/15/2015 Inactive cyanocobalamin (vit B-12) 1,000 mcg/mL injection solution RxNorm: 792997 1 Milliliter(s) Inj [id number] 12/16/2014 12/15/2014 Inactive sucralfate 1 gram tablet RxNorm: 846432 Tablet(s) PO QID 12/16/2014 12/10/2015 Inactive cyanocobalamin (vit B-12) 1,000 mcg/mL injection solution RxNorm: 501021 Milliliter(s) Inj 12/10/2014 12/10/2014 Inactive cyanocobalamin (vit B-12) 1,000 mcg/mL injection solution RxNorm: 954317 Milliliter(s) Inj 11/26/2014 11/26/2014 Inactive Zoloft 50 mg tablet RxNorm: 503325 1 Tablet(s) PO daily 11/24/2014 06/21/2015 Inactive Zoloft 50 mg tablet RxNorm: 414446 1 Tablet(s) PO daily 11/24/2014 11/23/2014 Inactive cyanocobalamin (vit B-12) 1,000 mcg/mL injection kit RxNorm: 177961 Milliliter(s) Inj 11/12/2014 11/12/2014 Inactive cyanocobalamin (vit B-12) 1,000 mcg/mL injection solution RxNorm: 046554 Milliliter(s) Inj 10/28/2014 10/28/2014 Inactive [SAVINGS FOR NON-COVERED DRUGS -- BIN:[id number], PCN: [id number], Group: [id number], ID# [id number], Questions: . THIS IS NOT INSURANCE.] promethazine oral RxNorm: 8745 oral No Start Date Active tramadol 50 mg tablet RxNorm: 234441 1 Tablet(s) PO TID No Start Date Active digoxin 125 mcg tablet RxNorm: 749478 Tablet(s) PO every other day No Start Date Active furosemide 40 mg tablet RxNorm: 233195 1 Tablet(s) PO daily No Start Date Active Vitamin D3 5,000 unit tablet RxNorm: 970806 1 Tablet(s) PO daily No Start Date Active erythromycin 250 mg capsule,delayed release RxNorm: 585329 1 Capsule(s) PO AC No Start Date Active Protonix 40 mg tablet,delayed release RxNorm: 299515 1 Tablet(s) PO BID No Start Date Active Cozaar 100 mg tablet RxNorm: 938075 1 Tablet(s) PO daily No Start Date 09/13/2016 Inactive sucralfate 1 gram tablet RxNorm: 389991 Tablet(s) PO QID No Start Date 12/15/2014 Inactive amiodarone 200 mg tablet RxNorm: 486671 2 Tablet(s) PO daily No Start Date 10/13/2015 Inactive buspirone 15 mg tablet RxNorm: 671856 1 Tablet(s) PO daily No Start Date 12/15/2014 Inactive potassium chloride ER 20 mEq tablet,extended release RxNorm: 682232 1 Tablet(s) PO daily No Start Date 10/12/2015 Inactive Prilosec 40 mg capsule,delayed release RxNorm: 249417 1 Capsule(s) PO daily No Start Date 09/02/2015 Inactive Harbeson 3 capsule RxNorm: Capsule(s) PO No Start Date 10/12/2015 Inactive alprazolam 0.25 mg tablet RxNorm: 258555 Tablet(s) PO QHS No Start Date 12/16/2014 Inactive levothyroxine 125 mcg tablet RxNorm: 889848 1 Tablet(s) PO daily No Start Date 12/23/2014 Inactive liothyronine 5 mcg tablet RxNorm: 792709 1 Tablet(s) PO BID No Start Date 07/21/2015 Inactive Mobic 15 mg tablet RxNorm: 298964 Tablet(s) PO daily No Start Date 05/19/2015 Inactive Norvasc 5 mg tablet RxNorm: 799229 1 Tablet(s) PO daily No Start Date 09/16/2015 Inactive Zofran 4 mg tablet RxNorm: 468385 1 Tablet(s) PO daily as needed No Start Date 05/19/2015 Inactive Tamiflu 75 mg capsule RxNorm: 855964 1 Capsule(s) PO BID No Start Date 07/23/2017 Inactive tramadol 50 mg tablet RxNorm: 161240 1 Tablet(s) PO daily as needed No Start Date 12/16/2014 Inactive amiodarone 200 mg tablet RxNorm: 920397 1 Tablet(s) PO daily No Start Date 10/12/2015 Inactive Zofran ODT 4 mg disintegrating tablet RxNorm: 843922 1 Tablet(s) PO TID as needed No Start Date 05/02/2017 Inactive albuterol sulfate 2.5 mg/3 mL (0.083 %) solution for nebulization RxNorm: 244582 3 Milliliter(s) INH Q6 PRN No Start Date 09/20/2017 Inactive meclizine 25 mg tablet RxNorm: 741472 Tablet(s) PO as needed No Start Date 05/24/2016 Inactive Pradaxa 150 mg capsule RxNorm: 3016993 1 Capsule(s) PO daily No Start Date 12/15/2014 Inactive metoprolol tartrate 50 mg tablet RxNorm: 344535 1/2 Tablet(s) PO No Start Date 12/15/2014 Inactive Aricept 10 mg tablet RxNorm: 563621 Tablet(s) PO daily No Start Date 05/19/2015 Inactive Calmoseptine 0.44 %-20.6 % topical ointment RxNorm: 811492 1 Application TOP BID and as needed to sore on buttocks No Start Date 09/06/2016 Inactive Zithromax Z-Henrique 250 mg tablet RxNorm: 895691 1 Tablet(s) PO UD No Start Date 11/09/2015 Inactive zpack x 1 Medication Administered Medication Codes Instructions Start Date Status cyanocobalamin (vit B-12) 1,000 mcg/mL injection solution RxNorm: 043229 Milliliter 10/10/2018 Active cyanocobalamin (vit B-12) 1,000 mcg/mL injection solution RxNorm: 634624 Milliliter 09/27/2018 No longer Active cyanocobalamin (vit B-12) 1,000 mcg/mL injection solution RxNorm: 496132 Milliliter 09/11/2018 No longer Active cyanocobalamin (vit B-12) 1,000 mcg/mL injection solution RxNorm: 739406 Milliliter 08/29/2018 No longer Active cyanocobalamin (vit B-12) 1,000 mcg/mL injection solution RxNorm: 206579 Milliliter 08/15/2018 No longer Active Kenalog 40 mg/mL suspension for injection RxNorm: 4027381 Milliliter 08/15/2018 No longer Active cyanocobalamin (vit B-12) 1,000 mcg/mL injection solution RxNorm: 899795 Milliliter 08/01/2018 No longer Active cyanocobalamin (vit B-12) 1,000 mcg/mL injection solution RxNorm: 666958 Milliliter 07/19/2018 No longer Active cyanocobalamin (vit B-12) 1,000 mcg/mL injection solution RxNorm: 711794 Milliliter 07/04/2018 No longer Active cyanocobalamin (vit B-12) 1,000 mcg/mL injection solution RxNorm: 779049 Milliliter 06/20/2018 No longer Active cyanocobalamin (vit B-12) 1,000 mcg/mL injection solution RxNorm: 288167 Milliliter 06/06/2018 No longer Active cyanocobalamin (vit B-12) 1,000 mcg/mL injection solution RxNorm: 425518 Milliliter 05/24/2018 No longer Active cyanocobalamin (vit B-12) 1,000 mcg/mL injection solution RxNorm: 344900 Milliliter 05/09/2018 No longer Active cyanocobalamin (vit B-12) 1,000 mcg/mL injection solution RxNorm: 944297 Milliliter 04/26/2018 No longer Active cyanocobalamin (vit B-12) 1,000 mcg/mL injection solution RxNorm: 580081 Milliliter 04/12/2018 No longer Active cyanocobalamin (vit B-12) 1,000 mcg/mL injection solution RxNorm: 180613 Milliliter 03/30/2018 No longer Active cyanocobalamin (vit B-12) 1,000 mcg/mL injection solution RxNorm: 489997 Milliliter 03/16/2018 No longer Active cyanocobalamin (vit B-12) 1,000 mcg/mL injection solution RxNorm: 011151 Milliliter 03/02/2018 No longer Active cyanocobalamin (vit B-12) 1,000 mcg/mL injection solution RxNorm: 126389 Milliliter 02/08/2018 No longer Active cyanocobalamin (vit B-12) 1,000 mcg/mL injection solution RxNorm: 877804 Milliliter 01/24/2018 No longer Active cyanocobalamin (vit B-12) 1,000 mcg/mL injection solution RxNorm: 863379 Milliliter 01/10/2018 No longer Active cyanocobalamin (vit B-12) 1,000 mcg/mL injection solution RxNorm: 035855 Milliliter 12/27/2017 No longer Active cyanocobalamin (vit B-12) 1,000 mcg/mL injection solution RxNorm: 754612 1Milliliter 12/12/2017 No longer Active cyanocobalamin (vit B-12) 1,000 mcg/mL injection solution RxNorm: 955030 Milliliter 12/01/2017 No longer Active cyanocobalamin (vit B-12) 1,000 mcg/mL injection solution RxNorm: 976316 1Milliliter 11/17/2017 No longer Active cyanocobalamin (vit B-12) 1,000 mcg/mL injection solution RxNorm: 726565 1Milliliter 11/02/2017 No longer Active cyanocobalamin (vit B-12) 1,000 mcg/mL injection solution RxNorm: 983070 1Milliliter 10/20/2017 No longer Active cyanocobalamin (vit B-12) 1,000 mcg/mL injection solution RxNorm: 027624 Milliliter 10/06/2017 No longer Active cyanocobalamin (vit B-12) 1,000 mcg/mL injection solution RxNorm: 384724 Milliliter 09/21/2017 No longer Active Kenalog 40 mg/mL suspension for injection RxNorm: 0967804 Milliliter 09/15/2017 No longer Active cyanocobalamin (vit B-12) 1,000 mcg/mL injection solution RxNorm: 945740 Milliliter 09/07/2017 No longer Active cyanocobalamin (vit B-12) 1,000 mcg/mL injection solution RxNorm: 894088 Milliliter 08/24/2017 No longer Active cyanocobalamin (vit B-12) 1,000 mcg/mL injection solution RxNorm: 180095 Milliliter 07/06/2017 No longer Active Kenalog 40 mg/mL suspension for injection RxNorm: 2213518 1Milliliter 06/20/2017 No longer Active cyanocobalamin (vit B-12) 1,000 mcg/mL injection solution RxNorm: 367711 Milliliter 06/20/2017 No longer Active cyanocobalamin (vit B-12) 1,000 mcg/mL injection solution RxNorm: 455543 Milliliter 06/05/2017 No longer Active cyanocobalamin (vit B-12) 1,000 mcg/mL injection solution RxNorm: 168765 Milliliter 05/25/2017 No longer Active cyanocobalamin (vit B-12) 1,000 mcg/mL injection solution RxNorm: 737441 Milliliter 05/16/2017 No longer Active cyanocobalamin (vit B-12) 1,000 mcg/mL injection solution RxNorm: 086957 1Milliliter 05/01/2017 No longer Active cyanocobalamin (vit B-12) 1,000 mcg/mL injection solution RxNorm: 075845 Milliliter 04/18/2017 No longer Active cyanocobalamin (vit B-12) 1,000 mcg/mL injection solution RxNorm: 367364 Milliliter 04/06/2017 No longer Active cyanocobalamin (vit B-12) 1,000 mcg/mL injection solution RxNorm: 646682 Milliliter 03/22/2017 No longer Active cyanocobalamin (vit B-12) 1,000 mcg/mL injection solution RxNorm: 850508 Milliliter 03/09/2017 No longer Active cyanocobalamin (vit B-12) 1,000 mcg/mL injection solution RxNorm: 591455 Milliliter 02/23/2017 No longer Active cyanocobalamin (vit B-12) 1,000 mcg/mL injection solution RxNorm: 107056 Milliliter 02/09/2017 No longer Active cyanocobalamin (vit B-12) 1,000 mcg/mL injection solution RxNorm: 139236 Milliliter 01/23/2017 No longer Active cyanocobalamin (vit B-12) 1,000 mcg/mL injection solution RxNorm: 757944 Milliliter 01/10/2017 No longer Active cyanocobalamin (vit B-12) 1,000 mcg/mL injection solution RxNorm: 705300 1Milliliter 12/28/2016 No longer Active cyanocobalamin (vit B-12) 1,000 mcg/mL injection solution RxNorm: 832247 Milliliter 12/14/2016 No longer Active cyanocobalamin (vit B-12) 1,000 mcg/mL injection solution RxNorm: 699840 Milliliter 11/24/2016 No longer Active cyanocobalamin (vit B-12) 1,000 mcg/mL injection solution RxNorm: 687272 1Milliliter 11/07/2016 No longer Active cyanocobalamin (vit B-12) 1,000 mcg/mL injection solution RxNorm: 177184 Milliliter 10/24/2016 No longer Active cyanocobalamin (vit B-12) 1,000 mcg/mL injection solution RxNorm: 852442 1Milliliter 09/29/2016 No longer Active cyanocobalamin (vit B-12) 1,000 mcg/mL injection solution RxNorm: 441468 Milliliter 08/29/2016 No longer Active cyanocobalamin (vit B-12) 1,000 mcg/mL injection solution RxNorm: 454654 Milliliter 08/04/2016 No longer Active cyanocobalamin (vit B-12) 1,000 mcg/mL injection solution RxNorm: 304833 Milliliter 07/21/2016 No longer Active cyanocobalamin (vit B-12) 1,000 mcg/mL injection solution RxNorm: 119445 1Milliliter 07/05/2016 No longer Active cyanocobalamin (vit B-12) 1,000 mcg/mL injection solution RxNorm: 492359 1Milliliter 06/22/2016 No longer Active cyanocobalamin (vit B-12) 1,000 mcg/mL injection solution RxNorm: 067918 Milliliter 06/09/2016 No longer Active cyanocobalamin (vit B-12) 1,000 mcg/mL injection solution RxNorm: 000515 1Milliliter 05/25/2016 No longer Active cyanocobalamin (vit B-12) 1,000 mcg/mL injection solution RxNorm: 335401 Milliliter 05/10/2016 No longer Active cyanocobalamin (vit B-12) 1,000 mcg/mL injection solution RxNorm: 652941 Milliliter 04/26/2016 No longer Active cyanocobalamin (vit B-12) 1,000 mcg/mL injection solution RxNorm: 761360 Milliliter 04/11/2016 No longer Active cyanocobalamin (vit B-12) 1,000 mcg/mL injection solution RxNorm: 025826 Milliliter 03/31/2016 No longer Active cyanocobalamin (vit B-12) 1,000 mcg/mL injection solution RxNorm: 903396 1Milliliter 03/15/2016 No longer Active cyanocobalamin (vit B-12) 1,000 mcg/mL injection solution RxNorm: 217779 Milliliter 02/25/2016 No longer Active cyanocobalamin (vit B-12) 1,000 mcg/mL injection solution RxNorm: 531438 1Milliliter 02/02/2016 No longer Active cyanocobalamin (vit B-12) 1,000 mcg/mL injection solution RxNorm: 026196 Milliliter 01/18/2016 No longer Active cyanocobalamin (vit B-12) 1,000 mcg/mL injection solution RxNorm: 057745 Milliliter 12/29/2015 No longer Active cyanocobalamin (vit B-12) 1,000 mcg/mL injection solution RxNorm: 637904 Milliliter 12/08/2015 No longer Active cyanocobalamin (vit B-12) 1,000 mcg/mL injection solution RxNorm: 259776 Milliliter 11/23/2015 No longer Active cyanocobalamin (vit B-12) 1,000 mcg/mL injection solution RxNorm: 669403 Milliliter 11/11/2015 No longer Active cyanocobalamin (vit B-12) 1,000 mcg/mL injection solution RxNorm: 157360 1Milliliter 10/29/2015 No longer Active cyanocobalamin (vit B-12) 1,000 mcg/mL injection solution RxNorm: 455759 1Milliliter 10/12/2015 No longer Active cyanocobalamin (vit B-12) 1,000 mcg/mL injection solution RxNorm: 335483 1Milliliter 09/29/2015 No longer Active cyanocobalamin (vit B-12) 1,000 mcg/mL injection solution RxNorm: 407233 1Milliliter 09/17/2015 No longer Active cyanocobalamin (vit B-12) 1,000 mcg/mL injection solution RxNorm: 991552 1Milliliter 09/03/2015 No longer Active cyanocobalamin (vit B-12) 1,000 mcg/mL injection solution RxNorm: 203564 Milliliter 08/17/2015 No longer Active cyanocobalamin (vit B-12) 1,000 mcg/mL injection solution RxNorm: 074397 Milliliter 08/06/2015 No longer Active cyanocobalamin (vit B-12) 1,000 mcg/mL injection solution RxNorm: 764855 Milliliter 07/22/2015 No longer Active cyanocobalamin (vit B-12) 1,000 mcg/mL injection solution RxNorm: 463649 Milliliter 07/08/2015 No longer Active cyanocobalamin (vit B-12) 1,000 mcg/mL injection solution RxNorm: 158401 Milliliter 06/23/2015 No longer Active cyanocobalamin (vit B-12) 1,000 mcg/mL injection solution RxNorm: 430087 1Milliliter 06/08/2015 No longer Active cyanocobalamin (vit B-12) 1,000 mcg/mL injection solution RxNorm: 388837 Milliliter 05/27/2015 No longer Active cyanocobalamin (vit B-12) 1,000 mcg/mL injection solution RxNorm: 064428 1Milliliter 05/12/2015 No longer Active cyanocobalamin (vit B-12) 1,000 mcg/mL injection kit RxNorm: 571260 kit 04/30/2015 No longer Active cyanocobalamin (vit B-12) 1,000 mcg/mL injection solution RxNorm: 219939 Milliliter 04/16/2015 No longer Active cyanocobalamin (vit B-12) 1,000 mcg/mL injection solution RxNorm: 991615 Milliliter 04/02/2015 No longer Active cyanocobalamin (vit B-12) 1,000 mcg/mL injection solution RxNorm: 690491 Milliliter 03/18/2015 No longer Active cyanocobalamin (vit B-12) 1,000 mcg/mL injection solution RxNorm: 338420 Milliliter 03/03/2015 No longer Active cyanocobalamin (vit B-12) 1,000 mcg/mL injection solution RxNorm: 776891 Milliliter 02/18/2015 No longer Active cyanocobalamin (vit B-12) 1,000 mcg/mL injection solution RxNorm: 181491 Milliliter 02/04/2015 No longer Active cyanocobalamin (vit B-12) 1,000 mcg/mL injection solution RxNorm: 541602 Milliliter 01/22/2015 No longer Active cyanocobalamin (vit B-12) 1,000 mcg/mL injection solution RxNorm: 934048 Milliliter 01/08/2015 No longer Active cyanocobalamin (vit B-12) 1,000 mcg/mL injection solution RxNorm: 901040 Milliliter 12/25/2014 No longer Active cyanocobalamin (vit B-12) 1,000 mcg/mL injection solution RxNorm: 986129 Milliliter 12/10/2014 No longer Active cyanocobalamin (vit B-12) 1,000 mcg/mL injection solution RxNorm: 268517 Milliliter 11/26/2014 No longer Active cyanocobalamin (vit B-12) 1,000 mcg/mL injection kit RxNorm: 911539 Milliliter 11/12/2014 No longer Active cyanocobalamin (vit B-12) 1,000 mcg/mL injection solution RxNorm: 452602 Milliliter 10/28/2014 No longer Active Immunizations Vaccine [...] Code Item Item Code Result Date Microalbumin Vyc044 MicroAlb <0.7 mg/dL 09/11/2018 Tsh Ord6 TSH (3rd IS) 6.48 uIU/mL 09/10/2018 Free T4 Fri884 FREE T4 0.89 ng/dL 09/10/2018 Lipid Ord30 CHOL 177 mg/dL 09/10/2018 Lipid Ord30 HDL 64.0 mg/dl 09/10/2018 Lipid Ord30 TRIG 126 mg/dL 09/10/2018 Lipid Ord30 LDL 88 mg/dL 09/10/2018 Lipid Ord30 C/HDL 2.8 Ratio 09/10/2018 Comp Metabolic Ozp469 NA 139 mEq/L 09/10/2018 Comp Metabolic Eke025 K 4.8 mEq/L 09/10/2018 Comp Metabolic Fes777 CL 103 mEq/L 09/10/2018 Comp Metabolic Ent662 CO2 25.0 mEq/L 09/10/2018 Comp Metabolic Vnm755 ANION GAP 16 09/10/2018 Comp Metabolic Kwq569 GLUCOSE 104 mg/dL 09/10/2018 Comp Metabolic Efa103 Creat 1.0 mg/dL 09/10/2018 Comp Metabolic Rjk274 eGFR 54 ml/min/1.73m2 09/10/2018 Comp Metabolic Vod665 BUN 25 mg/dL 09/10/2018 Comp Metabolic Dat114 B/C Ratio 24.3 Ratio 09/10/2018 Comp Metabolic Gtd228 CALCIUM 9.3 mg/dL 09/10/2018 Comp Metabolic Znd451 ALK PHOS 71 U/L 09/10/2018 Comp Metabolic Ufa872 AST(SGOT) 25 U/L 09/10/2018 Comp Metabolic Zrv430 ALT(SGPT) 28 U/L 09/10/2018 Comp Metabolic Uho820 BILI T 0.7 mg/dL 09/10/2018 Comp Metabolic Szo128 ALBUMIN 4.2 g/dL 09/10/2018 Comp Metabolic Mua287 TPRO 6.5 g/dL 09/10/2018 Comp Metabolic Gir769 GLOB 2.3 g/dL 09/10/2018 Comp Metabolic Get439 A/G Ratio 1.8 Ratio 09/10/2018 Comp Metabolic Oei547 Osmo 282 mOsmo 09/10/2018 Cbc With Differential [...] 27.7 pg 09/10/2018 Cbc With Differential Ord2 [place]% 8.8 % 09/10/2018 Cbc With Differential Ord2 [...] 2.24 K/ul 09/10/2018 Cbc With Differential Ord2 [place] ABS# 0.6 K/ul 09/10/2018 Cbc With Differential Ord2 [place] ABS# 0.2 K/ul 09/10/2018 Cbc With Differential Ord2 Baso ABS# 0.1 K/ul 09/10/2018 %Hba1C Mxh831 % HbA1c 46282- 6 6.0 % 09/10/2018 %Hba1C Jav519 Gluc Ave 126 mg/dL 09/10/2018 Test(s) Not Perfromed [id number] Test(s) Not Performed Test(s) Not Performed. See Below: 09/10/2018 Test(s) Not Perfromed [id number] TEST NAME Microalbumin 09/10/2018 Test(s) Not Perfromed [id number] Rejection Reason Patient Unable to Void 09/10/2018 Test(s) Not Perfromed [id number] COMMENT Patient to deliver sample to the lab at a later date 09/10/2018 Test(s) Not Perfromed [id number] Behavior Clinician Favio Mulligan 09/10/2018 Lipid Ord30 CHOL 174 mg/dL 05/29/2018 Lipid Ord30 HDL 49.0 mg/dl 05/29/2018 Lipid Ord30 TRIG 200 mg/dL 05/29/2018 Lipid Ord30 LDL 85 mg/dL 05/29/2018 Lipid Ord30 C/HDL 3.6 Ratio 05/29/2018 Tsh Ord6 TSH (3rd IS) 3.20 uIU/mL 02/26/2018 Free T4 Ndo947 FREE T4 0.99 ng/dL 02/26/2018 Cbc With [...] 28.5 pg 02/26/2018 Cbc With Differential Ord2 [place]% 10.3 % 02/26/2018 Cbc With Differential Ord2 [...] 1.80 K/ul 02/26/2018 Cbc With Differential Ord2 [place] ABS# 0.7 K/ul 02/26/2018 Cbc With Differential Ord2 [place] ABS# 0.2 K/ul 02/26/2018 Cbc With Differential Ord2 Baso ABS# 0.0 K/ul 02/26/2018 B12 Snj424 B12 889.00 pg/ml 02/26/2018 Digoxin Ord9 DIGOXIN 0.7 NG/ML 11/23/2017 Comp Metabolic Edt500 NA 142 mEq/L 11/23/2017 Comp Metabolic Loc158 K 4.9 mEq/L 11/23/2017 Comp Metabolic Tqr907 CL 112 mEq/L 11/23/2017 Comp Metabolic Uqs928 CO2 18.0 mEq/L 11/23/2017 Comp Metabolic Azu341 ANION GAP 17 11/23/2017 Comp Metabolic Wqc888 GLUCOSE 123 mg/dL 11/23/2017 Comp Metabolic Ldp373 Creat 1.0 mg/dL 11/23/2017 Comp Metabolic Rvt653 eGFR 59 ml/min/1.73m2 11/23/2017 Comp Metabolic Cqd339 BUN 24 mg/dL 11/23/2017 Comp Metabolic Jkt261 B/C Ratio 25.0 Ratio 11/23/2017 Comp Metabolic Fxh590 CALCIUM 9.4 mg/dL 11/23/2017 Comp Metabolic Vhv759 ALK PHOS 56 U/L 11/23/2017 Comp Metabolic Xtn062 AST(SGOT) 17 U/L 11/23/2017 Comp Metabolic Rmb596 ALT(SGPT) 16 U/L 11/23/2017 Comp Metabolic Avu569 BILI T 0.7 mg/dL 11/23/2017 Comp Metabolic Ond139 ALBUMIN 3.8 g/dL 11/23/2017 Comp Metabolic Ioh446 TPRO 6.2 g/dL 11/23/2017 Comp Metabolic Ilc497 GLOB 2.4 g/dL 11/23/2017 Comp Metabolic Stv900 A/G Ratio 1.6 Ratio 11/23/2017 Comp Metabolic Lam019 Osmo 289 mOsmo 11/23/2017 Free T4 Zgi351 FREE T4 1.04 ng/dL 11/23/2017 %Hba1C Olp758 % HbA1c 08493- 6 6.4 % 11/23/2017 %Hba1C Imc758 Gluc Ave 137 mg/dL 11/23/2017 Lipid Ord30 CHOL 179 mg/dL 11/23/2017 Lipid Ord30 HDL 51.0 mg/dl 11/23/2017 Lipid Ord30 TRIG 134 mg/dL 11/23/2017 Lipid Ord30 LDL 101 mg/dL 11/23/2017 Lipid Ord30 C/HDL 3.5 Ratio 11/23/2017 Tsh Ord6 TSH (3rd IS) 1.00 uIU/mL 11/23/2017 Microalbumin Wfr951 MicroAlb <0.7 mg/dL 11/23/2017 Comp Metabolic Kht869 NA 141 mEq/L 01/23/2017 Comp Metabolic Gyz076 K 4.5 mEq/L 01/23/2017 Comp Metabolic Pzd415 CL 107 mEq/L 01/23/2017 Comp Metabolic Yqm258 CO2 21.0 mEq/L 01/23/2017 Comp Metabolic Rkg732 ANION GAP 18 01/23/2017 Comp Metabolic Jxk229 GLUCOSE 138 mg/dL 01/23/2017 Comp Metabolic Cco624 Creat 1.0 mg/dL 01/23/2017 Comp Metabolic Qlx258 eGFR 56 ml/min/1.73m2 01/23/2017 Comp Metabolic Zva907 BUN 26 mg/dL 01/23/2017 Comp Metabolic Dqj901 B/C Ratio 25.7 Ratio 01/23/2017 Comp Metabolic Quy895 CALCIUM 9.0 mg/dL 01/23/2017 Comp Metabolic Ful462 ALK PHOS 37 U/L 01/23/2017 Comp Metabolic Vza925 AST(SGOT) 20 U/L 01/23/2017 Comp Metabolic Fiq835 ALT(SGPT) 25 U/L 01/23/2017 Comp Metabolic Qfc657 BILI T 0.9 mg/dL 01/23/2017 Comp Metabolic Ezn511 ALBUMIN 3.8 g/dL 01/23/2017 Comp Metabolic Imn884 TPRO 6.5 g/dL 01/23/2017 Comp Metabolic Typ602 GLOB 2.7 g/dL 01/23/2017 Comp Metabolic Uxo780 A/G Ratio 1.4 Ratio 01/23/2017 Comp Metabolic Sjw501 Osmo 288 mOsmo 01/23/2017 Free T4 Xmw194 FREE T4 1.05 ng/dL 01/23/2017 %Hba1C Fea109 % HbA1c 25671- 6 6.1 % 01/23/2017 %Hba1C Tva519 Gluc Ave 128 mg/dL 01/23/2017 Tsh Ord6 hTSH II 1.68 uIU/mL 01/23/2017 Culture Urine [id number] URINE CULTURE SEE NOTES 11/10/2016 Culture Urine [id number] Continued Results 11/10/2016 Urine Culture Ucult Complete [...] Ord15 CALCIUM 9.3 mg/dL 09/29/2016 Free T4 Qus582 FREE T4 0.99 ng/dL 09/07/2016 Cbc With [...] 30.0 pg 09/07/2016 Cbc With Differential Ord2 [place]% 9.8 % 09/07/2016 Cbc With Differential Ord2 [...] 1.75 K/ul 09/07/2016 Cbc With Differential Ord2 [place] ABS# 0.6 K/ul 09/07/2016 Cbc With Differential Ord2 [place] ABS# 0.1 K/ul 09/07/2016 Cbc With Differential Ord2 Baso ABS# 0.0 K/ul 09/07/2016 Tsh Ord6 hTSH II 1.41 uIU/mL 09/07/2016 Culture Urine [id number] URINE CULTURE SEE NOTES 06/27/2016 Lipid Ord30 CHOL 196 mg/dL 06/22/2016 Lipid Ord30 HDL 63.0 mg/dl 06/22/2016 Lipid Ord30 TRIG 154 mg/dL 06/22/2016 Lipid Ord30 LDL 102 mg/dL 06/22/2016 Lipid Ord30 C/HDL 3.1 Ratio 06/22/2016 Hepatic Wqf550 ALBUMIN 4.2 g/dL 06/22/2016 Hepatic Gpp106 TPRO 7.0 g/dL 06/22/2016 Hepatic Prq885 GLOB 2.8 g/dL 06/22/2016 Hepatic Hts312 A/G Ratio 1.5 Ratio 06/22/2016 Hepatic Kdx287 ALK PHOS 54 U/L 06/22/2016 Hepatic Qsu576 ALT(SGPT) 30 U/L 06/22/2016 Hepatic Tjs357 AST(SGOT) 24 U/L 06/22/2016 Hepatic Csa981 BILI T 1.1 mg/dL 06/22/2016 Hepatic Rjf655 BILI D 0.2 mg/dL 06/22/2016 Hepatic Pjh671 BILI I 0.9 mg/dL 06/22/2016 Comp Metabolic Sqm345 NA 139 mEq/L 06/14/2016 Comp Metabolic Pka501 K 4.6 mEq/L 06/14/2016 Comp Metabolic Paj054 CL 108 mEq/L 06/14/2016 Comp Metabolic Brx638 CO2 22.0 mEq/L 06/14/2016 Comp Metabolic Oat688 ANION GAP 14 06/14/2016 Comp Metabolic Gdl241 GLUCOSE 114 mg/dL 06/14/2016 Comp Metabolic Kcf118 Creat 1.2 mg/dL 06/14/2016 Comp Metabolic Bxa944 eGFR 48 ml/min/1.73m2 06/14/2016 Comp Metabolic Nzz194 BUN 24 mg/dL 06/14/2016 Comp Metabolic Ayn769 B/C Ratio 20.9 Ratio 06/14/2016 Comp Metabolic Rtm231 CALCIUM 9.9 mg/dL 06/14/2016 Comp Metabolic Ock525 ALK PHOS 47 U/L 06/14/2016 Comp Metabolic Gpu951 AST(SGOT) 28 U/L 06/14/2016 Comp Metabolic Vfa569 ALT(SGPT) 32 U/L 06/14/2016 Comp Metabolic Qoq034 BILI T 0.9 mg/dL 06/14/2016 Comp Metabolic Nmp709 ALBUMIN 4.1 g/dL 06/14/2016 Comp Metabolic Jzt401 TPRO 6.9 g/dL 06/14/2016 Comp Metabolic Txw021 GLOB 2.8 g/dL 06/14/2016 Comp Metabolic Rse351 A/G Ratio 1.5 Ratio 06/14/2016 Comp Metabolic Wtm590 Osmo 282 mOsmo 06/14/2016 Tsh Ord6 hTSH II 1.26 uIU/mL 06/14/2016 Free T4 Ncg405 FREE T4 1.09 ng/dL 06/14/2016 Tsh Ord6 hTSH II 0.28 uIU/mL 02/02/2016 Digoxin Ord9 DIGOXIN 0.7 NG/ML 02/02/2016 Free T4 Ppe224 FREE T4 1.23 ng/dL 02/02/2016 Hepatic Kct642 ALBUMIN 4.0 g/dL 02/02/2016 Hepatic Ipo928 TPRO 7.0 g/dL 02/02/2016 Hepatic Nlp022 GLOB 3.0 g/dL 02/02/2016 Hepatic Vch685 A/G Ratio 1.3 Ratio 02/02/2016 Hepatic Uto479 ALK PHOS 57 U/L 02/02/2016 Hepatic Adv385 ALT(SGPT) 62 U/L 02/02/2016 Hepatic Acc902 AST(SGOT) 54 U/L 02/02/2016 Hepatic Coo561 BILI T 0.8 mg/dL 02/02/2016 Hepatic Owr938 BILI D 0.2 mg/dL 02/02/2016 Hepatic Ooh441 BILI I 0.6 mg/dL 02/02/2016 Urine Culture Ucult Preliminary No Growth Day 1 11/25/2015 Urine Culture Ucult Complete No Growth Day 2 11/25/2015 Hepatic Ait719 ALBUMIN 3.9 g/dL 11/11/2015 Hepatic Cku398 TPRO 7.0 g/dL 11/11/2015 Hepatic Skv270 GLOB 3.1 g/dL 11/11/2015 Hepatic Vqf578 A/G Ratio 1.3 Ratio 11/11/2015 Hepatic Yjv522 ALK PHOS 63 U/L 11/11/2015 Hepatic Zuv239 ALT(SGPT) 107 U/L 11/11/2015 Hepatic Qgd162 AST(SGOT) 101 U/L 11/11/2015 Hepatic Kdk286 BILI T 0.6 mg/dL 11/11/2015 Hepatic Hls322 BILI D 0.1 mg/dL 11/11/2015 Hepatic Ryn014 BILI I 0.5 mg/dL 11/11/2015 Comp Metabolic Wfa247 NA 138 mEq/L 10/29/2015 Comp Metabolic Fbh732 K 5.0 mEq/L 10/29/2015 Comp Metabolic Deu851 CL 105 mEq/L 10/29/2015 Comp Metabolic Sxy135 CO2 23.0 mEq/L 10/29/2015 Comp Metabolic Shd665 ANION GAP 15 10/29/2015 Comp Metabolic Ikb040 GLUCOSE 105 mg/dL 10/29/2015 Comp Metabolic Gjc288 Creat 1.0 mg/dL 10/29/2015 Comp Metabolic Xbv352 eGFR 55 ml/min/1.73m2 10/29/2015 Comp Metabolic Uff693 BUN 20 mg/dL 10/29/2015 Comp Metabolic Dst139 B/C Ratio 19.4 Ratio 10/29/2015 Comp Metabolic Dzh355 CALCIUM 8.8 mg/dL 10/29/2015 Comp Metabolic Uzo025 ALK PHOS 56 U/L 10/29/2015 Comp Metabolic Cxv122 AST(SGOT) 66 U/L 10/29/2015 Comp Metabolic Mmb672 ALT(SGPT) 78 U/L 10/29/2015 Comp Metabolic Utu401 BILI T 0.7 mg/dL 10/29/2015 Comp Metabolic Qae659 ALBUMIN 3.6 g/dL 10/29/2015 Comp Metabolic Tne283 TPRO 6.6 g/dL 10/29/2015 Comp Metabolic Qsc646 GLOB 3.0 g/dL 10/29/2015 Comp Metabolic All052 A/G Ratio 1.2 Ratio 10/29/2015 Comp Metabolic Zmd379 Osmo 279 mOsmo 10/29/2015 Comp Metabolic Vfl014 NA 136 mEq/L 09/03/2015 Comp Metabolic Gzo461 K 4.4 mEq/L 09/03/2015 Comp Metabolic Cks047 CL 103 mEq/L 09/03/2015 Comp Metabolic Gtl666 CO2 24.0 mEq/L 09/03/2015 Comp Metabolic Oct039 ANION GAP 13 09/03/2015 Comp Metabolic Mck876 GLUCOSE 87 mg/dL 09/03/2015 Comp Metabolic Xza750 Creat 1.1 mg/dL 09/03/2015 Comp Metabolic Tqq883 eGFR 53 ml/min/1.73m2 09/03/2015 Comp Metabolic Lap586 BUN 17 mg/dL 09/03/2015 Comp Metabolic Vgl349 B/C Ratio 16.2 Ratio 09/03/2015 Comp Metabolic Qpo373 CALCIUM 9.0 mg/dL 09/03/2015 Comp Metabolic Xxj919 ALK PHOS 55 U/L 09/03/2015 Comp Metabolic Gnm557 AST(SGOT) 83 U/L 09/03/2015 Comp Metabolic Jkp473 ALT(SGPT) 126 U/L 09/03/2015 Comp Metabolic Iwb138 BILI T 0.9 mg/dL 09/03/2015 Comp Metabolic Dvq415 ALBUMIN 3.9 g/dL 09/03/2015 Comp Metabolic Hkt224 TPRO 6.8 g/dL 09/03/2015 Comp Metabolic Gtm004 GLOB 2.9 g/dL 09/03/2015 Comp Metabolic Kgs285 A/G Ratio 1.4 Ratio 09/03/2015 Comp Metabolic Fny465 Osmo 273 mOsmo 09/03/2015 Total T3 Ord42 TT3 0.6 ng/ml 07/09/2015 Tsh Ord6 hTSH II 1.62 uIU/mL 07/09/2015 Total T3 Ord42 TT3 0.5 ng/ml 04/02/2015 Free T4 Mcr872 FREE T4 1.23 ng/dL 04/02/2015 Tsh Ord6 [...] Procedure Codes Date THER/PROPH/DIAG INJ SC/IM CPT-4: 17393 10/10/2018 THER/PROPH/DIAG INJ SC/IM CPT-4: 77458 09/27/2018 THER/PROPH/DIAG INJ SC/IM CPT-4: 02499 09/11/2018 THER/PROPH/DIAG INJ SC/IM CPT-4: 43098 08/29/2018 THER/PROPH/DIAG INJ SC/IM CPT-4: 65970 08/15/2018 TRIAMCINOLONE ACET INJ NOS CPT-4: J3301 08/15/2018 THER/PROPH/DIAG INJ SC/IM CPT-4: 22315 08/01/2018 VITAMIN B12 INJECTION CPT- 4: J3420 08/01/2018 THER/PROPH/DIAG INJ SC/IM CPT-4: 95142 07/19/2018 THER/PROPH/DIAG INJ SC/IM CPT-4: 86877 07/04/2018 THER/PROPH/DIAG INJ SC/IM CPT-4: 46504 06/20/2018 THER/PROPH/DIAG INJ SC/IM CPT-4: 75108 06/06/2018 VITAMIN B12 INJECTION CPT- 4: J3420 06/06/2018 THER/PROPH/DIAG INJ SC/IM CPT-4: 11507 05/24/2018 THER/PROPH/DIAG INJ SC/IM CPT-4: 66473 05/09/2018 THER/PROPH/DIAG INJ SC/IM CPT-4: 71498 04/26/2018 VITAMIN B12 INJECTION CPT- 4: J3420 04/26/2018 THER/PROPH/DIAG INJ SC/IM CPT-4: 41458 04/12/2018 THER/PROPH/DIAG INJ SC/IM CPT-4: 38203 03/30/2018 THER/PROPH/DIAG INJ SC/IM CPT-4: 88633 03/16/2018 VITAMIN B12 INJECTION CPT- 4: J3420 03/16/2018 ADMIN INFLUENZA VIRUS VAC CPT-4: G0008 03/16/2018 FLU VACC PRSV FREE INC ANTIG Formatting Model/CDA Sections, Assigned to/Nga Ojeda CPT-4: 36753Mrmfjkq 03/16/2018 THER/PROPH/DIAG INJ SC/IM CPT-4: 99317 03/02/2018 THER/PROPH/DIAG INJ SC/IM CPT-4: 60225 02/08/2018 THER/PROPH/DIAG INJ SC/IM CPT-4: 73294 01/24/2018 THER/PROPH/DIAG INJ SC/IM CPT-4: 84276 01/10/2018 THER/PROPH/DIAG INJ SC/IM CPT-4: 33763 12/27/2017 VITAMIN B12 INJECTION CPT- 4: J3420 12/27/2017 THER/PROPH/DIAG INJ SC/IM CPT-4: 98239 12/12/2017 THER/PROPH/DIAG INJ SC/IM CPT-4: 92044 12/01/2017 VITAMIN B12 INJECTION CPT- 4: J3420 12/01/2017 THER/PROPH/DIAG INJ SC/IM CPT-4: 93047 11/17/2017 THER/PROPH/DIAG INJ SC/IM CPT-4: 54414 11/02/2017 THER/PROPH/DIAG INJ SC/IM CPT-4: 09820 10/20/2017 THER/PROPH/DIAG INJ SC/IM CPT-4: 04376 10/06/2017 THER/PROPH/DIAG INJ SC/IM CPT-4: 02085 09/21/2017 TRIAMCINOLONE ACET INJ NOS CPT-4: J3301 09/15/2017 THER/PROPH/DIAG INJ SC/IM CPT-4: 63091 09/07/2017 THER/PROPH/DIAG INJ SC/IM CPT-4: 78753 08/24/2017 THER/PROPH/DIAG INJ SC/IM CPT-4: 53239 07/06/2017 THER/PROPH/DIAG INJ SC/IM CPT-4: 42444 06/20/2017 TRIAMCINOLONE ACET INJ NOS CPT-4: J3301 06/20/2017 PPPS, SUBSEQ VISIT CPT- 4: G0439 06/05/2017 THER/PROPH/DIAG INJ SC/IM CPT-4: 09210 06/05/2017 THER/PROPH/DIAG INJ SC/IM CPT-4: 50584 05/25/2017 VITAMIN B12 INJECTION CPT- 4: J3420 05/25/2017 THER/PROPH/DIAG INJ SC/IM CPT-4: 34300 05/16/2017 THER/PROPH/DIAG INJ SC/IM CPT-4: 15405 05/01/2017 THER/PROPH/DIAG INJ SC/IM CPT-4: 91115 04/18/2017 THER/PROPH/DIAG INJ SC/IM CPT-4: 80933 04/06/2017 ADMIN INFLUENZA VIRUS VAC CPT-4: G0008 03/22/2017 FLU VACC PRSV FREE INC ANTIG CPT-4: 43848 03/22/2017 THER/PROPH/DIAG INJ SC/IM CPT-4: 69690 03/09/2017 THER/PROPH/DIAG INJ SC/IM CPT-4: 16027 02/23/2017 THER/PROPH/DIAG INJ SC/IM CPT-4: 86469 02/09/2017 THER/PROPH/DIAG INJ SC/IM CPT-4: 80270 01/23/2017 THER/PROPH/DIAG INJ SC/IM CPT-4: 83519 01/10/2017 THER/PROPH/DIAG INJ SC/IM CPT-4: 40459 12/28/2016 THER/PROPH/DIAG INJ SC/IM CPT-4: 84255 12/14/2016 THER/PROPH/DIAG INJ SC/IM CPT-4: 33551 11/24/2016 URINALYSIS NONAUTO W/O SCOPE CPT-4: 57034 11/07/2016 THER/PROPH/DIAG INJ SC/IM CPT-4: 31328 11/07/2016 THER/PROPH/DIAG INJ SC/IM CPT-4: 56070 10/24/2016 THER/PROPH/DIAG INJ SC/IM CPT-4: 26857 09/29/2016 THER/PROPH/DIAG INJ SC/IM CPT-4: 37736 08/29/2016 THER/PROPH/DIAG INJ SC/IM CPT-4: 15749 08/04/2016 THER/PROPH/DIAG INJ SC/IM CPT-4: 01995 07/21/2016 THER/PROPH/DIAG INJ SC/IM CPT-4: 30896 07/05/2016 THER/PROPH/DIAG INJ SC/IM CPT-4: 75827 06/22/2016 URINALYSIS NONAUTO W/O SCOPE CPT-4: 28028 06/22/2016 THER/PROPH/DIAG INJ SC/IM CPT-4: 66149 06/09/2016 PPPS, SUBSEQ VISIT CPT- 4: G0439 05/30/2016 ADMIN PNEUMOCOCCAL VACCINE SNOMED CT: [id number] CPT-4: G0009 05/25/2016 Pneumococcal Polysaccharide Vaccine, 23-Valent, Ad CPT-4: 27952 05/25/2016 THER/PROPH/DIAG INJ SC/IM CPT-4: 82480 05/25/2016 THER/PROPH/DIAG INJ SC/IM CPT-4: 50849 05/10/2016 TRIAMCINOLONE ACET INJ NOS CPT-4: J3301 04/26/2016 VITAMIN B12 INJECTION CPT- 4: J3420 04/26/2016 THER/PROPH/DIAG INJ SC/IM CPT-4: 37518 04/11/2016 THER/PROPH/DIAG INJ SC/IM CPT-4: 07223 03/31/2016 ADMIN INFLUENZA VIRUS VAC CPT-4: G0008 03/15/2016 FLU VACC 4 STEPHANIE 3 YRS PLUS IM SNOMED CT: [id number] CPT-4: 03438 03/15/2016 THER/PROPH/DIAG INJ SC/IM CPT-4: 91141 02/25/2016 THER/PROPH/DIAG INJ SC/IM CPT-4: 96939 02/02/2016 THER/PROPH/DIAG INJ SC/IM CPT-4: 58619 01/18/2016 VITAMIN B12 INJECTION CPT- 4: J3420 12/29/2015 THER/PROPH/DIAG INJ SC/IM CPT-4: 35584 12/29/2015 THER/PROPH/DIAG INJ SC/IM CPT-4: 29053 12/08/2015 THER/PROPH/DIAG INJ SC/IM CPT-4: 71681 11/23/2015 URINALYSIS NONAUTO W/O SCOPE CPT-4: 16990 11/23/2015 THER/PROPH/DIAG INJ SC/IM CPT-4: 96336 11/11/2015 THER/PROPH/DIAG INJ SC/IM CPT-4: 52749 10/29/2015 THER/PROPH/DIAG INJ SC/IM CPT-4: 70837 10/12/2015 VITAMIN B12 INJECTION CPT- 4: J3420 10/12/2015 THER/PROPH/DIAG INJ SC/IM CPT-4: 73995 09/29/2015 THER/PROPH/DIAG INJ SC/IM CPT-4: 74569 09/17/2015 THER/PROPH/DIAG INJ SC/IM CPT-4: 79312 09/03/2015 THER/PROPH/DIAG INJ SC/IM CPT-4: 39307 08/17/2015 THER/PROPH/DIAG INJ SC/IM CPT-4: 60896 08/06/2015 THER/PROPH/DIAG INJ SC/IM CPT-4: 88061 07/22/2015 THER/PROPH/DIAG INJ SC/IM CPT-4: 55247 07/08/2015 THER/PROPH/DIAG INJ SC/IM CPT-4: 99777 06/23/2015 THER/PROPH/DIAG INJ SC/IM CPT-4: 75007 06/08/2015 THER/PROPH/DIAG INJ SC/IM CPT-4: 01068 05/27/2015 DESTRUCT PREMALG LESION CPT-4: 07657 05/19/2015 DESTRUCT PREMALG LES 2-14 CPT-4: 32313 05/19/2015 THER/PROPH/DIAG INJ SC/IM CPT-4: 53327 05/12/2015 VITAMIN B12 INJECTION CPT- 4: J3420 05/12/2015 THER/PROPH/DIAG INJ SC/IM CPT-4: 24157 04/30/2015 VITAMIN B12 INJECTION CPT- 4: J3420 04/30/2015 THER/PROPH/DIAG INJ SC/IM CPT-4: 37536 04/16/2015 THER/PROPH/DIAG INJ SC/IM CPT-4: 33533 04/02/2015 VITAMIN B12 INJECTION CPT- 4: J3420 04/02/2015 THER/PROPH/DIAG INJ SC/IM CPT-4: 54599 03/18/2015 THER/PROPH/DIAG INJ SC/IM CPT-4: 67219 03/03/2015 THER/PROPH/DIAG INJ SC/IM CPT-4: 66187 02/18/2015 THER/PROPH/DIAG INJ SC/IM CPT-4: 81721 02/04/2015 VITAMIN B12 INJECTION CPT- 4: J3420 02/04/2015 THER/PROPH/DIAG INJ SC/IM CPT-4: 73528 01/22/2015 THER/PROPH/DIAG INJ SC/IM CPT-4: 50803 01/08/2015 VITAMIN B12 INJECTION CPT- 4: J3420 01/08/2015 THER/PROPH/DIAG INJ SC/IM CPT-4: 09225 12/25/2014 VITAMIN B12 INJECTION CPT- 4: J3420 12/25/2014 THER/PROPH/DIAG INJ SC/IM CPT-4: 22951 12/10/2014 VITAMIN B12 INJECTION CPT- 4: J3420 12/10/2014 THER/PROPH/DIAG INJ SC/IM CPT-4: 16690 11/26/2014 VITAMIN B12 INJECTION CPT- 4: J3420 11/26/2014 THER/PROPH/DIAG INJ SC/IM CPT-4: 28438 11/12/2014 VITAMIN B12 INJECTION CPT- 4: J3420 11/12/2014 THER/PROPH/DIAG INJ SC/IM CPT-4: 71868 10/28/2014 Vital Signs Date Vital 09/05/2018 Blood Pressure 1: 122/70 Code: 8480-6 BMI: 27.1 Code: 03584-5 Heart Rate 1: 90 bpm Height: 5'6" SpO2: 97% Weight: 168 lbs 08/15/2018 Blood Pressure 1: 142/76 Code: 8480-6 BMI: 27.4 Code: 25014-6 Heart Rate 1: 74 bpm Height: 5'6" SpO2: 95% Temperature: 36.7 (C) / 98.1 (F) Weight: 170 lbs 05/03/2018 Blood Pressure 1: 140/70 Code: 8480-6 BMI: 26.0 Code: 00394-1 Heart Rate 1: 70 bpm Height: 5'6" SpO2: 94% Weight: 161 lbs 04/26/2018 Height: 5'6" 02/26/2018 Blood Pressure 1: 130/72 Code: 8480-6 BMI: 27.9 Code: 12196-7 Heart Rate 1: 72 bpm Height: 5'6" SpO2: 93% Weight: 173 lbs 12/12/2017 Blood Pressure 1: 126/74 Code: 8480-6 BMI: 27.4 Code: 16699-2 Heart Rate 1: 83 bpm Height: 5'6" SpO2: 98% Weight: 170 lbs 12/04/2017 Blood Pressure 1: 104/68 Code: 8480-6 BMI: 28.2 Code: 43256-8 Heart Rate 1: 85 bpm Height: 5'6" SpO2: 95% Weight: 175 lbs 11/20/2017 Blood Pressure 1: 130/68 Code: 8480-6 BMI: 28.4 Code: 84673-4 Heart Rate 1: 80 bpm Height: 5'6" SpO2: 99% Weight: 176 lbs 11/02/2017 Height: 5'6" 09/15/2017 Blood Pressure 1: 134/74 Code: 8480-6 BMI: 28.4 Code: 09064-6 Heart Rate 1: 88 bpm Height: 5'6" SpO2: 98% Weight: 176 lbs 09/07/2017 Blood Pressure 1: 124/64 Code: 8480-6 Heart Rate 1: 90 bpm Height: SpO2: 97% Weight: 08/30/2017 Blood Pressure 1: 140/76 Code: 8480-6 BMI: 28.4 Code: 02048-9 Heart Rate 1: 90 bpm Height: 5'6" SpO2: 94% Weight: 176 lbs 07/06/2017 Blood Pressure 1: 132/66 Code: 8480-6 BMI: 29.4 Code: 23885-8 Heart Rate 1: 85 bpm Height: 5'6" SpO2: 97% Weight: 182 lbs 06/20/2017 Blood Pressure 1: 134/86 Code: 8480-6 Heart Rate 1: 90 bpm Height: SpO2: 98% Weight: 06/05/2017 BMI: 29.1 Code: 42497-1 Height: 5'6" Weight: 180 lbs 05/25/2017 Blood Pressure 1: 126/76 Code: 8480-6 BMI: 29.1 Code: 16997-6 Heart Rate 1: 77 bpm Height: 5'6" SpO2: 97% Weight: 180 lbs 03/23/2017 Blood Pressure 1: 142/84 Code: 8480-6 BMI: 29.1 Code: 95693-3 Heart Rate 1: 91 bpm Height: 5'6" SpO2: 97% Weight: 180 lbs 01/23/2017 Blood Pressure 1: 150/90 Code: 8480-6 BMI: 29.9 Code: 41948-3 Heart Rate 1: 81 bpm Height: 5'6" SpO2: 97% Weight: 185 lbs 11/02/2016 Blood Pressure 1: 148/78 Code: 8480-6 BMI: 29.7 Code: 79745-9 Heart Rate 1: 87 bpm Height: 5'6" SpO2: 97% Weight: 184 lbs 09/29/2016 Blood Pressure 1: 128/78 Code: 8480-6 BMI: 29.7 Code: 53246-1 Heart Rate 1: 78 bpm Height: 5'6" SpO2: 98% Weight: 184 lbs 07/26/2016 Blood Pressure 1: 138/72 Code: 8480-6 BMI: 30.0 Code: 14857-7 Heart Rate 1: 85 bpm Height: 5'6" SpO2: 97% Weight: 186 lbs 05/30/2016 Blood Pressure 1: 132/76 Code: 8480-6 BMI: 30.0 Code: 60838-2 Heart Rate 1: 80 bpm Height: 5'6" SpO2: 98% Waist Measure (cm): 99 cm Weight: 186 lbs 05/25/2016 Blood Pressure 1: 132/76 Code: 8480-6 BMI: 30.0 Code: 37616-9 Heart Rate 1: 80 bpm Height: 5'6" SpO2: 96% Weight: 186 lbs 02/25/2016 Blood Pressure 1: 110/64 Code: 8480-6 Heart Rate 1: 82 bpm Height: SpO2: 96% Weight: 01/25/2016 Blood Pressure 1: 118/70 Code: 8480-6 BMI: 30.0 Code: 87097-2 Heart Rate 1: 78 bpm Height: 5'6" SpO2: 97% Weight: 186 lbs 11/11/2015 Blood Pressure 1: 128/82 Code: 8480-6 BMI: 29.2 Code: 29767-2 Heart Rate 1: 86 bpm Height: 5'6" SpO2: 96% Temperature: 36.4 (C) / 97.6 (F) Weight: 181 lbs 10/12/2015 Blood Pressure 1: 118/70 Code: 8480-6 BMI: 29.2 Code: 35984-6 Heart Rate 1: 81 bpm Height: 5'6" SpO2: 95% Weight: 181 lbs 09/03/2015 Blood Pressure 1: 138/78 Code: 8480-6 BMI: 29.9 Code: 90573-1 Heart Rate 1: 88 bpm Height: 5'6" SpO2: 97% Weight: 185 lbs 05/19/2015 Blood Pressure 1: 146/78 Code: 8480-6 BMI: 30.0 Code: 64592-1 Heart Rate 1: 66 bpm Height: 5'6" SpO2: 97% Weight: 186 lbs 05/12/2015 Blood Pressure 1: 120/70 Code: 8480-6 BMI: 29.9 Code: 51634-1 Heart Rate 1: 89 bpm Height: 5'6" SpO2: 95% Weight: 185 lbs 01/13/2015 Blood Pressure 1: 140/90 Code: 8480-6 BMI: 30.3 Code: 49516-3 Heart Rate 1: 84 bpm Height: 5'6" SpO2: 95% Weight: 188 lbs 12/16/2014 Blood Pressure 1: 140/82 Code: 8480-6 BMI: 29.5 Code: 67183-8 Heart Rate 1: 86 bpm Height: 5'6" [...] data Encounters Encounter Performer Location Codes Date ([id number]) [id number] EST. PATIENT, LEVEL IV Diagnosis: Essential (primary) hypertension[ICD10: I10] Diagnosis: Type 2 diabetes mellitus without complications[ICD10: E11.9] Diagnosis: Atrophy of thyroid (acquired)[ICD10: E03.4] Diagnosis: Other vitamin B12 deficiency anemias[ICD10: D51.8] [facility] CPT-4: 40770 09/05/2018 [id number] EST. PATIENT, LEVEL IV Diagnosis: Acute bronchitis due to other specified organisms[ICD10: J20.8] Diagnosis: Cough[ICD10: R05] Diagnosis: 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 factor deficiency[ICD10: D51.0] Brianna Vega MD, [facility] CPT-4: 70939 08/15/2018 ([id number]) 54587 EST. PATIENT, LEVEL IV Diagnosis: Essential (primary) hypertension[ICD10: I10] Diagnosis: Type 2 diabetes mellitus without complications[ICD10: E11.9] Yarely Vega MD, [facility] CPT-4: 92711 05/03/2018 ([id number]) 41758 EST. PATIENT, LEVEL III Diagnosis: Pain in left shoulder[ICD10: M25.512] Diagnosis: Pain in right shoulder[ICD10: M25.511] Yarely Vega MD, [facility] CPT-4: 87818 02/26/2018 ([id number]) 50396 EST. PATIENT, LEVEL III Diagnosis: Nausea[ICD10: R11.0] Diagnosis: Cough[ICD10: R05] Diagnosis: 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 factor deficiency[ICD10: D51.0] Janet Vega MD, [facility] CPT-4: 89573 12/12/2017 ([id number]) 48508 EST. PATIENT, LEVEL IV Diagnosis: Acute bronchitis due to Hemophilus influenzae[ICD10: J20.1] Diagnosis: Cough[ICD10: R05] Yarely Vega MD, [facility] CPT-4: 82042 12/04/2017 ([id number]) 40713 EST. PATIENT, LEVEL IV Diagnosis: Essential (primary) hypertension[ICD10: I10] Diagnosis: Cough[ICD10: R05] Diagnosis: Chronic atrial fibrillation[ICD10: I48.2] Yarely Vega MD, [facility] CPT-4: 10419 11/20/2017 ([id number]) 37444 EST. PATIENT, LEVEL III Diagnosis: Cough[ICD10: R05] Diagnosis: Acute upper respiratory infection, unspecified[ICD10: J06.9] Janet Vega MD, [facility] CPT-4: 60043 09/15/2017 03090 EST. PATIENT, LEVEL III Diagnosis: Laceration without foreign body of right forearm, initial encounter[ICD10: S51.811A] Diagnosis: Other vitamin B12 deficiency anemias[ICD10: D51.8] Brianna Vega MD, [facility] CPT-4: 38558 09/07/2017 ([id number]) 25141 EST. PATIENT, LEVEL IV Diagnosis: Chronic atrial fibrillation[ICD10: I48.2] Diagnosis: Other allergic rhinitis[ICD10: J30.89] Diagnosis: Encounter for therapeutic drug level monitoring[ICD10: Z51.81] Yarely Vega MD, [facility] CPT-4: 26081 08/30/2017 ([id number]) 47102 EST. PATIENT, LEVEL IV Diagnosis: Atrophy of thyroid (acquired)[ICD10: E03.4] Diagnosis: Cough[ICD10: R05] Diagnosis: Laceration without foreign body of left forearm, initial encounter[ICD10: S51.812A] Diagnosis: Candidiasis of skin and nail[ICD10: B37.2] Diagnosis: Other vitamin B12 deficiency anemias[ICD10: D51.8] Diagnosis: Slow transit constipation[ICD10: K59.01] Yarely Vega MD, [facility] CPT-4: 32384 07/06/2017 38857 EST. PATIENT, LEVEL III Diagnosis: Other vitamin B12 deficiency anemias[ICD10: D51.8] Diagnosis: Acute laryngopharyngitis[ICD10: J06.0] Diagnosis: Other allergic rhinitis[ICD10: J30.89] Brianna Vega MD, [facility] CPT- 4: 98059 06/20/2017 ([id number]) 43914 EST. PATIENT, LEVEL IV Diagnosis: Essential (primary) hypertension[ICD10: I10] Diagnosis: Chronic atrial fibrillation[ICD10: I48.2] Diagnosis: Atrophy of thyroid (acquired)[ICD10: E03.4] Diagnosis: 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 factor deficiency[ICD10: D51.0] Yarely Vega MD, [facility] CPT-4: 92532 05/25/2017 ([id number]) 08497 EST. PATIENT, LEVEL IV Diagnosis: Type 2 diabetes mellitus without complications[ICD10: E11.9] Diagnosis: Atrophy of thyroid (acquired)[ICD10: E03.4] Diagnosis: Chest pain on breathing[ICD10: R07.1] Diagnosis: Chondrocostal junction syndrome [Tietze][ICD10: M94.0] Diagnosis: Other fatigue[ICD10: R53.83] Yarely Vega MD, [facility] CPT-4: 62921 03/23/2017 ([id number]) 55328 EST. PATIENT, LEVEL IV Diagnosis: Type 2 diabetes mellitus without complications[ICD10: E11.9] Diagnosis: Essential (primary) hypertension[ICD10: I10] Diagnosis: Headache[ICD10: R51] Diagnosis: Atrophy of thyroid (acquired)[ICD10: E03.4] Diagnosis: Vitamin B12 deficiency anemia, unspecified[ICD10: D51.9] Yarely Vega MD, [facility] CPT-4: 28327 01/23/2017 99039 EST. PATIENT, LEVEL III Diagnosis: Low back pain[ICD10: M54.5] Diagnosis: Pain in thoracic spine[ICD10: M54.6] Brianna Vega MD, [facility] CPT- 4: 91639 11/02/2016 ([id number]) 63906 EST. PATIENT, LEVEL IV Diagnosis: Essential (primary) hypertension[ICD10: I10] Diagnosis: Other vitamin B12 deficiency anemias[ICD10: D51.8] Diagnosis: Generalized abdominal pain[ICD10: R10.84] Yarely Vega MD, [facility] CPT-4: 67204 09/29/2016 ([id number]) 62882 EST. PATIENT, LEVEL IV Diagnosis: Essential (primary) hypertension[ICD10: I10] Yarely Vega MD, [facility] CPT-4: 32221 07/26/2016 ([id number]) 55106 EST. PATIENT, LEVEL IV Diagnosis: Benign lipomatous neoplasm of skin and subcutaneous tissue of right leg[ICD10: D17.23] Diagnosis: Pain in right ankle and joints of right foot[ICD10: M25.571] Diagnosis: Encounter for immunization[ICD10: Z23] Diagnosis: Vitamin B12 deficiency anemia, unspecified[ICD10: D51.9] Yarely Vega MD, [facility] CPT-4: 05384 05/25/2016 60503 EST. PATIENT, LEVEL III Diagnosis: Other chest pain[ICD10: R07.89] Diagnosis: Other vitamin B12 deficiency anemias[ICD10: D51.8] Brianna Vega MD, [facility] CPT-4: 15142 02/25/2016 ([id number]) 78314 EST. 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 PATIENT, LEVEL III Diagnosis: Other vitamin B12 deficiency anemias[ICD10: D51.8] Diagnosis: Acute nasopharyngitis [common cold][ICD10: J00] Diagnosis: Other allergic rhinitis[ICD10: J30.89] Brianna Vega MD, [facility] CPT- 4: 03222 11/11/2015 ([id number]) 04635 EST. PATIENT, LEVEL IV Diagnosis: Essential tremor[ICD10: G25.0] Diagnosis: Chronic fatigue, unspecified[ICD10: R53.82] Diagnosis: Other hypersomnia[ICD10: G47.19] Diagnosis: Essential (primary) hypertension[ICD10: I10] Yarely Vega MD, [facility] CPT-4: 75365 10/12/2015 ([id number]) 61932 EST. PATIENT, LEVEL IV Diagnosis: Essential (primary) hypertension[ICD10: I10] Diagnosis: Chronic atrial fibrillation[ICD10: I48.2] Diagnosis: Abnormal levels of other serum enzymes[ICD10: R74.8] Diagnosis: Type 2 diabetes mellitus without complications[ICD10: E11.9] Diagnosis: Vitamin B12 deficiency anemia, unspecified[ICD10: D51.9] Yarely Vega MD, [facility] CPT-4: 11268 09/03/2015 ([id number]) 38726 EST. PATIENT, LEVEL III Diagnosis: Nausea[ICD10: R11.0] Diagnosis: Essential tremor[ICD10: G25.0] Diagnosis: Actinic keratosis[ICD10: L57.0] Yarely Vega MD, [facility] CPT-4: 30638 05/19/2015 ([id number]) 82778 EST. PATIENT, LEVEL IV Diagnosis: Vitamin B12 deficiency anemia, unspecified[ICD10: D51.9] Diagnosis: Chronic atrial fibrillation[ICD10: I48.2] Diagnosis: Headache[ICD10: R51] Diagnosis: Chronic fatigue, unspecified[ICD10: R53.82] Diagnosis: Cervicalgia[ICD10: M54.2] Yarely Vega MD, [facility] CPT-4: 34851 05/12/2015 ([id number]) 38938 EST. PATIENT, LEVEL IV Diagnosis: ESSENTIAL HYPERTENSION[ICD9: 401.9] Diagnosis: Afib[ICD9: 427.31] Diagnosis: Anxiety[ICD9: 300.00] Diagnosis: Insomnia[ICD9: 780.52] Yarely Vega MD, [facility] CPT-4: 04061 01/13/2015 ([id number]) OFFICE VISIT, NEW - LEVEL 4 Diagnosis: Hypothyroidism[ICD9: 244.9] Diagnosis: DIABETES TYPE II[ICD9: 250.00] Diagnosis: ESSENTIAL HYPERTENSION[ICD9: 401.9] Diagnosis: Afib[ICD9: 427.31] Diagnosis: Anxiety[ICD9: 300.00] Diagnosis: B12 deficiency[ICD9: 266.2] Janet Vega MD, [facility] CPT-4: 32837 12/16/2014 Plan of Care Planned Activity Notes Codes Status Date Patient Education: Patient Medication Summary Completed 10/10/2018 Appointment: Injection 09/27/2018 Patient Education: Patient Medication Summary Completed 09/27/2018 Appointment: [phone] (15 min) Moderate 09/11/2018 Appointment: Injection 09/11/2018 [...] control. 09/05/2018 Appointment: Yarely Vega [facility]el: [facility] [place] (15 min) Moderate 09/05/2018 Patient Education: Patient [...] Summary Completed 06/20/2018 Appointment: Yarely Vega WPtel: [address] [facility] [place] [place] (30 min) Complex 06/07/2018 Appointment: Injection 06/06/2018 Patient Education: Patient Medication Summary Completed 06/06/2018 Appointment: Yarely Vega WPtel: [phone] [place] [place] (15 min) Moderate 05/31/2018 Appointment: Injection [...] restart flonase 05/03/2018 Appointment: Yarely Vega [facility]Ptel: [phone] [place] (15 min) Moderate 05/03/2018 Patient Education: Patient Medication Summary Completed 05/03/2018 Patient Education: Hypertension Completed 05/03/2018 Patient Education: Diabetes Completed 05/03/2018 Appointment: Injection 04/26/2018 Patient Education: Patient Medication Summary Completed 04/26/2018 Appointment: Injection 04/12/2018 Patient Education: Patient Medication Summary Completed 04/12/2018 Appointment: Injection 03/30/2018 Patient Education: Patient Medication Summary Completed 03/30/2018 Appointment: Injection 03/16/2018 Patient Education: Patient Medication Summary Completed 03/16/2018 Referral: Car aCt Dr. Completed 03/08/2018 Referral: Car Cat with Mateo Maldonado Completed 03/05/2018 Appointment: Injection 03/02/2018 Patient Education: Patient Medication Summary Completed 03/02/2018 Visit Plan: Shoulder pain - suspect a tendon rupture or partial tear - referral to dr cat for shoulder injections - pt is not interested in surgical intervention. 02/26/2018 Appointment: Yarely Vega [facility]Ptel: [phone] [facility] [place] (15 min) Moderate 02/26/2018 Patient Education: Patient Medication Summary Completed 02/26/2018 Care Plan: Referral Order SNOMED-CT : [id number] Pending 02/26/2018 Appointment: Injection 02/08/2018 Patient Education: Patient Medication Summary Completed 02/08/2018 Appointment: Injection 01/24/2018 Patient Education: Patient Medication Summary Completed 01/24/2018 Appointment: Injection 01/10/2018 Patient Education: Patient Medication Summary Completed 01/10/2018 Appointment: Injection 12/27/2017 Patient Education: Patient Medication Summary Completed 12/27/2017 Appointment: Yarely Vega WPtel: [phone] [facility] (15 min) Moderate 12/26/2017 Visit Plan: Gukfkw-knjkcdhxa-oujapmny protonix-follow up with Dr Navarro as scheduled Cough-recent bronchitis-symptoms improved-call if symptoms do not completely resolve 12/12/2017 Appointment: Janet Fam WPtel: [phone] [phone] (15 min) Moderate 12/12/2017 Patient Education: Patient Medication Summary Completed 12/12/2017 Visit Plan: Bronchitis - acute case of bronchitis identified. Pt has been given antibiotics, breathing treatments as appropriate, and pt has been instructed to call if symptoms are not improved, or if symptoms acutely worsen. Cough - rx for antibiotics as well as cough medication. 12/04/2017 Appointment: Yarely Vega WPtel: [facility] (15 min) Moderate 12/04/2017 Patient Education: [...] Fatigue/malaise -Pt was advsied to ask the Scall[employer] Shucker the following: ask the heart doctor if [...] becoming uncontrolled. 11/20/2017 Appointment: Yarely Vega WPtel: [facility]9 [facility] [place] (15 min) Moderate 11/20/2017 Patient [...] any worse. 09/15/2017 Appointment: Janet Fam WPtel: [facility]8 [phone] [place] (15 min) Moderate 09/15/2017 Patient Education: Patient Medication Summary Completed 09/15/2017 Appointment: Yarely Vega WPtel: [facility]6 [facility] [place] (15 min) Moderate 09/11/2017 Visit Plan: Skin tear and Cellulitis - The patient was instructed in appropriate wound care. The patient was instructed to use the antibiotic ointment as per RX. The patient is to call for any change in symptoms, increase in size of the lesion, increase in pain, worsening redness, warmth, discharge. 09/07/2017 Appointment: Brianna Otoole WPtel: [facility]6 [facility] [place] (10 min) Simple 09/07/2017 Patient Education: Patient Medication Summary Completed 09/07/2017 Visit Plan: Lipoma - left ankle - talk to dr. barnes about possible surgery/laser for treatment of lipoma. Fatigue/malaise -Pt was advsied to ask the Scall[employer] Shucker the following: ask the heart doctor if there is an alternative to the amiodarone - you may be having side effects from the medication causing you to have pruritus (itching) and feeling like you have body aches, muscle aches, joint pain, fatigue, weight loss (decreased appetite), and pneumonia like symptoms. Congestion - claritin 10mg daily. 08/30/2017 Appointment: Yarely Vega WPtel: [phone] [facility] (15 min) Moderate 08/30/2017 Patient Education: Patient Medication Summary Completed 08/30/2017 Appointment: Injection 08/24/2017 Appointment: Yarely Vega WPtel: [phone] [facility] (15 min) Moderate 08/24/2017 Patient Education: [...] mucinex 07/06/2017 Appointment: [facility]: [phone] (15 min) Moderate 07/06/2017 Patient Education: Patient [...] [place] [facility]Ptel[phone] [place] (15 min) Moderate 06/20/2017 Patient Education: Patient [...] Appointment: Injection 06/05/2017 Appointment: Brianna Otoole WPtel: [facility] [facility] - Annual Wellness Visit [...] q 3 months or q [facility] based on previous levels of control. 05/25/2017 Appointment: Yarely Vega WPtel: [phone] [place] (15 min) Moderate 05/25/2017 Patient Education: Patient [...] wall. Fatigue - pt to discuss with [employer] Shucker about the possibility of amiodarone causing her fatigue/malaise. 03/23/2017 Appointment: Yarely Vega WPtel: [phone] [place] (15 min) Moderate 03/23/2017 Patient Education: Patient [...] Vega WPtel: [phone] (15 min) Moderate 01/23/2017 Patient Education: Patient [...] not improve. 11/02/2016 Appointment: Brianna Otoole WPtel: [phone] [place] (15 min) Moderate 11/02/2016 Patient Education: Patient [...] carafate 09/29/2016 Appointment: Yarely Vega WPtel: [phone] [facility] [place] (15 min) Moderate 09/29/2016 Patient Education: Patient Medication Summary Completed 09/29/2016 Appointment: Yarely Vega WPtel: [phone] [facility] [place] [place] (15 min) Moderate 09/27/2016 Appointment: Yarely Vega WPtel: [phone] [facility] [place] [place] (15 min) Moderate 09/20/2016 Appointment: Yarely Vega WPtel: [phone] [facility] [place] [place] (15 min) Moderate 09/20/2016 Patient Education: Patient Medication Summary Completed 09/06/2016 Appointment: Yarely Vega WPtel: [phone] [facility] [place] [place] (15 min) Moderate 08/30/2016 Appointment: Injection [...] acute concerns. 07/26/2016 Appointment: Yarely Vega WPtel: [phone] [place] (15 min) Moderate 07/26/2016 Patient Education: [...] care surrogate. 05/30/2016 Appointment: Brianna Otoole WPtel: [facility] [place] [facility] - Annual Wellness Visit [...] bedtime 05/25/2016 Appointment: Yarely Vega WPtel: [phone] [facility] [place] (15 min) Moderate 05/25/2016 Patient Education: Patient Medication Summary Completed 05/25/2016 Patient Education: Obesity Completed 05/25/2016 Care Plan: Referral Order SNOMED-CT : [id number] Pending 05/25/2016 Appointment: Injection 05/10/2016 Patient Education: Patient Medication Summary Completed 05/10/2016 Appointment: Injection 04/26/2016 Patient Education: Patient Medication Summary Completed 04/26/2016 Appointment: Injection 04/11/2016 Patient Education: Patient Medication Summary Completed 04/11/2016 Appointment: Injection 03/31/2016 Patient Education: Patient Medication Summary Completed 03/31/2016 Patient Education: Patient Medication Summary Completed 03/22/2016 Care Plan: [facility]APHY[facility] : [address]-3 Pending 03/22/2016 Appointment: Injection 03/15/2016 Patient Education: [...] concerns. 02/25/2016 Appointment: Brianna Otoole WPtel: [phone] [facility] [place] [place] (15 min) Moderate 02/25/2016 Patient Education: [...] patients recent sleep study - recommended [place] tappen patient eval of pt - nocturnal oxygen [...] daughter who had [facility]. She is interested in looking at assisted living facilities for her mom as Faiza's family is for assisted living placement sooner rather than later. 10/12/2015 Appointment: Yarely Vega WPtel: [facility] (15 min) Moderate 10/12/2015 Patient Education: Patient [...] Completed 08/17/2015 Appointment: Yarely Vega WPtel: [phone] [facility] (15 min) Moderate 08/11/2015 Appointment: Injection 08/06/2015 [...] 2 05/19/2015 Appointment: Yarely Vega WPtel: [phone] (30 min) Complex 05/19/2015 Patient Education: Patient [...] prn alprazolam. 01/13/2015 Appointment: Yarely Vega WPtel: [address] [place] [address] (15 min) Moderate 01/13/2015 Patient Education: Patient [...] medications. 12/16/2014 Appointment: Janet Fam WPtel: [phone] [place] ([place] New Patient 12/16/2014 Patient Education: [...] DOPA paperwork for health care surrogate. . Bybfbj-dptwfvcjj-kofufzyd protonix-follow up with Dr Navarro as scheduled [...] Fatigue/malaise -Pt was advsied to ask the [employer] Shucker the following: ask the heart doctor if [...] Fatigue/malaise -Pt was advsied to ask the Sc[employer] Shucker the following: ask the heart doctor if [...] wall. Fatigue - pt to discuss with Scall[employer] Shucker about the possibility of amiodarone causing her [...]
--- OUTSIDE RECORDS SUMMARY | 2018-12-05 16:53 | XMS REPORT | CCD ---
Author Author [facility] Organization [facility] Address [address] [place] [address] Phone Care Team Providers Care Facility Practice Specialist Name Role Phone PP Unavailable CCM Unavailable Summary Purpose Interface Exchange Insurance Providers Payer name Policy type / Coverage type Covered constitution party ID Effective Begin Date Effective End Date WPS Medicare Part B Medicare Part B [id number] Unknown Principal Life Insurance Medicare Part B [id number] Unknown [employer] [facility] in [place] Medicare Part B [id number] Unknown Family history Brother Diagnosis Age At Onset Heart Attack Unknown Mother Diagnosis Age At Onset Hypertension Unknown kidney disease Unknown Stroke Unknown Father Diagnosis Age At Onset Arthritis Unknown Social History Social History Element Codes Description Effective Dates Employment Unknown Retired worked at [employer] 11/20/2017 Marital status Unknown Single 12/16/[address]: 7055352 Former smoker 12/16/[address]: 138088194 Never drinks alcohol 12/16/2014 Allergies, Adverse Reactions, Alerts Substance Reaction Codes Entered Date Inactivated Date Status CODEINE RxNorm: 2670 05/25/2016 No Inactive Date Active ciprofloxacin RxNorm: 95950 12/16/2014 No Inactive Date Active MORPHINE SULFATE [...] ICD-9: 786.2 ICD-10: R05 Active 07/06/2017 Unknown 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-9: 281.0 ICD-10: D51.0 Active 05/25/2017 Unknown Encounter for immunization ICD-9: V03.82 ICD-10: [...] Cough ICD-9: 786.2 ICD-10: R05 07/06/2017 Active 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-9: 281.0 ICD-10: D51.0 05/25/2017 Active Encounter for immunization ICD-9: V03.82 ICD-10: [...] Start Date Stop Date Status Fill Instructions Flonase Allergy Relief 50 mcg/actuation nasal spray,suspension RxNorm: 2958421 [place] 1 [place] NASAL BID 10/08/2018 04/05/2019 Active cyanocobalamin (vit B-12) 1,000 mcg/mL injection solution RxNorm: 623209 Milliliter(s) Inj 09/27/2018 09/27/2018 Inactive levothyroxine 137 mcg tablet RxNorm: 292554 1 Tablet(s) PO daily 09/12/2018 03/10/2019 Active levothyroxine 137 mcg tablet RxNorm: 811890 1 Tablet(s) PO daily 09/12/2018 09/11/2018 Inactive cyanocobalamin (vit B-12) 1,000 mcg/mL injection solution RxNorm: 062965 Milliliter(s) Inj 09/11/2018 09/11/2018 Inactive levothyroxine 125 mcg tablet RxNorm: 262297 TAKE 1 TABLET BY MOUTH EVERY DAY 09/10/2018 09/11/2018 Inactive Generic For:SYNTHROID 125MCG TAB 09/10/2018 12:06:52 PM cyanocobalamin (vit B-12) 1,000 mcg/mL injection solution RxNorm: 368491 Milliliter(s) Inj 08/29/2018 08/29/2018 Inactive alprazolam 0.25 mg tablet RxNorm: 038067 1 Tablet(s) PO BID 08/21/2018 02/16/2019 Active albuterol sulfate 2.5 mg/3 mL (0.083 %) solution for nebulization RxNorm: 574048 3 Milliliter(s) INH Q6 PRN 08/15/2018 No Stop Date Active Aricept 10 mg tablet RxNorm: 778163 1 Tablet(s) PO daily 08/15/2018 08/09/2019 Active liothyronine 5 mcg tablet RxNorm: 410873 Tablet(s) TAKE 1 TABLET BY MOUTH TWICE DAILY 08/15/2018 02/10/2019 Active cyanocobalamin (vit B-12) 1,000 mcg/mL injection solution RxNorm: 127268 Milliliter(s) Inj 08/15/2018 08/15/2018 Inactive Kenalog 40 mg/mL suspension for injection RxNorm: 8806419 Milliliter(s) Inj 08/15/2018 08/15/2018 Inactive doxycycline hyclate 100 mg capsule RxNorm: 5685816 1 Capsule(s) PO BID 08/15/2018 08/24/2018 Inactive cyanocobalamin (vit B-12) 1,000 mcg/mL injection solution RxNorm: 087126 Milliliter(s) Inj 08/01/2018 08/01/2018 Inactive cyanocobalamin (vit B-12) 1,000 mcg/mL injection solution RxNorm: 730155 Milliliter(s) Inj 07/19/2018 07/19/2018 Inactive hydrocodone 5 mg-acetaminophen 325 mg tablet RxNorm: 858379 1-2 Tablet(s) PO Q6 as needed for pain 07/18/2018 08/15/2018 Inactive betamethasone valerate 0.1 % topical ointment RxNorm: 562120 1 TOP BID 07/04/2018 07/03/2018 Inactive applying to skin under nose x 10 days cyanocobalamin (vit B-12) 1,000 mcg/mL injection solution RxNorm: 288487 Milliliter(s) Inj 07/04/2018 07/04/2018 Inactive betamethasone valerate 0.1 % topical ointment RxNorm: 138301 1 TOP BID 07/04/2018 07/13/2018 Inactive applying to skin under nose x 10 days Aricept 10 mg tablet RxNorm: 551166 Tablet(s) 1 Tablet(s) PO daily 06/25/2018 08/14/2018 Inactive cyanocobalamin (vit B-12) 1,000 mcg/mL injection solution RxNorm: 476432 Milliliter(s) Inj 06/20/2018 06/20/2018 Inactive hydrocodone 5 mg-acetaminophen 325 mg tablet RxNorm: 655069 1-2 Tablet(s) PO Q6 as needed for pain 06/20/2018 07/17/2018 Inactive Flonase Allergy Relief 50 mcg/actuation nasal spray,suspension RxNorm: 9025100 [place] 1 [place] NASAL BID 06/20/2018 10/07/2018 Inactive cyanocobalamin (vit B-12) 1,000 mcg/mL injection solution RxNorm: 223424 Milliliter(s) Inj 06/06/2018 06/06/2018 Inactive alprazolam 0.25 mg tablet RxNorm: 850218 1 Tablet(s) PO BID 05/25/2018 08/21/2018 Inactive hydrocodone 5 mg-acetaminophen 325 mg tablet RxNorm: 064144 1-2 Tablet(s) PO Q6 as needed for pain 05/24/2018 06/19/2018 Inactive cyanocobalamin (vit B-12) 1,000 mcg/mL injection solution RxNorm: 196216 Milliliter(s) Inj 05/24/2018 05/24/2018 Inactive cyanocobalamin (vit B-12) 1,000 mcg/mL injection solution RxNorm: 750790 Milliliter(s) Inj 05/09/2018 05/09/2018 Inactive Claritin 10 mg tablet RxNorm: 215080 TAKE 1 TABLET BY MOUTH ONCE DAILY 05/08/2018 05/02/2019 Active Generic For:CLARITIN 10MG 05/07/2018 9:13:47 AM cyanocobalamin (vit B-12) 1,000 mcg/mL injection solution RxNorm: 088531 INJECT ONE 1 ML EVERY TWO WEEKS 05/03/2018 04/03/2019 Active 05/03/2018 9:13:42 AM Mobic 15 mg tablet RxNorm: 027963 Tablet(s) 1 Tablet(s) PO daily 04/26/2018 04/20/2019 Active buspirone 15 mg tablet RxNorm: 824398 Tablet(s) TAKE 1 TABLET BY MOUTH TWICE DAILY 04/26/2018 04/20/2019 Active Generic For:BUSPAR 15MG 05/31/2017 9:19:20 AM Norvasc 5 mg tablet RxNorm: 278829 Tablet(s) 1 Tablet(s) PO daily 04/26/2018 04/20/2019 Active cyanocobalamin (vit B-12) 1,000 mcg/mL injection solution RxNorm: 466510 Milliliter(s) Inj 04/26/2018 04/26/2018 Inactive hydrocodone 5 mg-acetaminophen 325 mg tablet RxNorm: 500371 1-2 Tablet(s) PO Q6 as needed for pain 04/25/2018 05/23/2018 Inactive cyanocobalamin (vit B-12) 1,000 mcg/mL injection solution RxNorm: 162038 Milliliter(s) Inj 04/12/2018 04/12/2018 Inactive Topamax 25 mg tablet RxNorm: 325274 1 Tablet(s) PO BID 04/09/2018 05/02/2018 Inactive Generic For:TOPAMAX 25MG 12/06/2016 9:15:13 AM Zoloft 50 mg tablet RxNorm: 442304 TAKE 1 TABLET BY MOUTH ONCE DAILY 04/04/2018 12/29/2018 Active Generic For:ZOLOFT 50MG 04/04/2018 9:13:25 AM cyanocobalamin (vit B-12) 1,000 mcg/mL injection solution RxNorm: 922864 Milliliter(s) Inj 03/30/2018 03/30/2018 Inactive levothyroxine 125 mcg tablet RxNorm: 925237 TAKE 1 TABLET BY MOUTH EVERY DAY 03/26/2018 09/09/2018 Inactive Generic For:SYNTHROID 125MCG TAB 03/26/2018 9:15:59 AM liothyronine 5 mcg tablet RxNorm: 607816 TAKE 1 TABLET BY MOUTH TWICE DAILY 03/26/2018 08/14/2018 Inactive Generic For:CYTOMEL 5MCG 03/26/2018 9:15:54 AM hydrocodone 5 mg-acetaminophen 325 mg tablet RxNorm: 618010 1-2 Tablet(s) PO Q6 as needed for pain 03/19/2018 04/17/2018 Inactive cyanocobalamin (vit B-12) 1,000 mcg/mL injection solution RxNorm: 083234 Milliliter(s) Inj 03/16/2018 03/16/2018 Inactive Flonase Allergy Relief 50 mcg/actuation nasal spray,suspension RxNorm: 6855927 1 [place] NASAL BID 03/05/2018 06/19/2018 Inactive cyanocobalamin (vit B-12) 1,000 mcg/mL injection solution RxNorm: 922794 Milliliter(s) Inj 03/02/2018 03/02/2018 Inactive alprazolam 0.25 mg tablet RxNorm: 021771 1 Tablet(s) PO BID 02/28/2018 05/27/2018 Inactive cyanocobalamin (vit B-12) 1,000 mcg/mL injection solution RxNorm: 957046 Milliliter(s) Inj 02/08/2018 02/08/2018 Inactive cyanocobalamin (vit B-12) 1,000 mcg/mL injection solution RxNorm: 579286 Milliliter(s) Inj 01/24/2018 01/24/2018 Inactive albuterol sulfate 2.5 mg/3 mL (0.083 %) solution for nebulization RxNorm: 421518 3 Milliliter(s) INH Q6 PRN 01/24/2018 05/02/2018 Inactive Claritin 10 mg tablet RxNorm: 759637 1 Tablet(s) PO daily 01/15/2018 05/07/2018 Inactive cyanocobalamin (vit B-12) 1,000 mcg/mL injection solution RxNorm: 952758 Milliliter(s) Inj 01/10/2018 01/10/2018 Inactive hydrocodone 5 mg-acetaminophen 325 mg tablet RxNorm: 662644 1-2 Tablet(s) PO Q6 as needed for pain 01/09/2018 02/07/2018 Inactive cyanocobalamin (vit B-12) 1,000 mcg/mL injection solution RxNorm: 102190 Milliliter(s) Inj 12/27/2017 12/27/2017 Inactive cyanocobalamin (vit B-12) 1,000 mcg/mL injection solution RxNorm: 318387 1 Milliliter(s) Inj 12/12/2017 12/12/2017 Inactive Zofran ODT 4 mg disintegrating tablet RxNorm: 062772 1 Tablet(s) PO TID as needed 12/08/2017 12/09/2017 Inactive hydrocodone 2.5 mg-guaifenesin 200 mg/5 mL oral solution RxNorm: 452045 5 Milliliter(s) PO 12/04/2017 05/06/2018 Inactive doxycycline hyclate 100 mg capsule RxNorm: 8663661 1 Capsule(s) PO BID 12/04/2017 12/13/2017 Inactive cyanocobalamin (vit B-12) 1,000 mcg/mL injection solution RxNorm: 321831 Milliliter(s) Inj 12/01/2017 12/01/2017 Inactive Flonase Allergy Relief 50 mcg/actuation nasal spray,suspension RxNorm: 8854840 1 [place] NASAL BID 11/20/2017 2018 Inactive cyanocobalamin (vit B-12) 1,000 mcg/mL injection solution RxNorm: 367378 1 Milliliter(s) Inj 11/17/2017 11/17/2017 Inactive hydrocodone 5 mg-acetaminophen 325 mg tablet RxNorm: 301540 1-2 Tablet(s) PO Q6 as needed for pain 11/16/2017 12/15/2017 Inactive cyanocobalamin (vit B-12) 1,000 mcg/mL injection solution RxNorm: 956490 1 Milliliter(s) Inj 11/02/2017 11/02/2017 Inactive hydrocodone 5 mg-acetaminophen 325 mg tablet RxNorm: 020803 1-2 Tablet(s) PO Q6 as needed for pain 10/25/2017 11/15/2017 Inactive Claritin 10 mg tablet RxNorm: 759413 1 Tablet(s) PO daily 10/25/2017 11/19/2017 Inactive albuterol sulfate 2.5 mg/3 mL (0.083 %) solution for nebulization RxNorm: 956345 3 Milliliter(s) INH Q6 PRN 10/25/2017 01/23/2018 Inactive Claritin 10 mg tablet RxNorm: 648566 1 Tablet(s) PO daily 10/25/2017 10/24/2017 Inactive cyanocobalamin (vit B-12) 1,000 mcg/mL injection solution RxNorm: 671823 1 Milliliter(s) Inj 10/20/2017 10/20/2017 Inactive Zoloft 50 mg tablet RxNorm: 602672 TAKE 1 TABLET BY MOUTH ONCE DAILY 10/13/2017 04/03/2018 Inactive Generic For:ZOLOFT 50MG 10/13/2017 8:59:44 AM cyanocobalamin (vit B-12) 1,000 mcg/mL injection solution RxNorm: 921943 Milliliter(s) Inj 10/06/2017 10/06/2017 Inactive liothyronine 5 mcg tablet RxNorm: 814619 TAKE 1 TABLET BY MOUTH TWICE DAILY 10/03/2017 03/25/2018 Inactive Generic For:CYTOMEL 5MCG 10/03/2017 9:13:38 AM cyanocobalamin (vit B-12) 1,000 mcg/mL injection solution RxNorm: 403938 Milliliter(s) Inj 09/21/2017 09/21/2017 Inactive albuterol sulfate 2.5 mg/3 mL (0.083 %) solution for nebulization RxNorm: 351397 3 Milliliter(s) INH Q6 PRN 09/21/2017 10/24/2017 Inactive hydrocodone 5 mg-acetaminophen 325 mg tablet RxNorm: 588562 1-2 Tablet(s) PO Q6 as needed for pain 09/21/2017 10/20/2017 Inactive Kenalog 40 mg/mL suspension for injection RxNorm: 5801327 Milliliter(s) Inj 09/15/2017 09/15/2017 Inactive Keflex 500 mg capsule RxNorm: 146186 1 Capsule(s) PO TID 09/07/2017 09/16/2017 Inactive Please deliver to patient cyanocobalamin (vit B-12) 1,000 mcg/mL injection solution RxNorm: 489933 Milliliter(s) Inj 09/07/2017 09/07/2017 Inactive alprazolam 0.25 mg tablet RxNorm: 153103 1 Tablet(s) PO BID 09/06/2017 02/27/2018 Inactive Aricept 10 mg tablet RxNorm: 390828 1 Tablet(s) PO daily 09/06/2017 06/24/2018 Inactive hydrocodone 5 mg-acetaminophen 325 mg tablet RxNorm: 212531 1-2 Tablet(s) PO Q6 as needed for pain 08/24/2017 09/20/2017 Inactive cyanocobalamin (vit B-12) 1,000 mcg/mL injection solution RxNorm: 550136 Milliliter(s) Inj 08/24/2017 08/24/2017 Inactive Norvasc 5 mg tablet RxNorm: 671213 1 Tablet(s) PO daily 08/18/2017 04/25/2018 Inactive nystatin 100,000 unit/gram topical powder RxNorm: 241798 1 Gram(s) TOP QID 08/17/2017 08/26/2017 Inactive hydrocodone 5 mg-acetaminophen 325 mg tablet RxNorm: 243669 1-2 Tablet(s) PO Q6 as needed for pain 07/25/2017 08/23/2017 Inactive Tamiflu 75 mg capsule RxNorm: 085404 1 Capsule(s) PO BID 07/24/2017 12/11/2017 Inactive nystatin 100,000 unit/gram topical powder RxNorm: 869848 1 Gram(s) TOP QID 07/14/2017 07/22/2017 Inactive levothyroxine 125 mcg tablet RxNorm: 656237 Tablet(s) 1 Tablet(s) PO daily 07/10/2017 01/05/2018 Inactive nystatin 100,000 unit/gram topical powder RxNorm: 186011 1 Gram(s) TOP QID 07/06/2017 07/13/2017 Inactive cyanocobalamin (vit B-12) 1,000 mcg/mL injection solution RxNorm: 477826 Milliliter(s) Inj 07/06/2017 07/06/2017 Inactive Kenalog 40 mg/mL suspension for injection RxNorm: 4508331 1 Milliliter(s) Inj 06/20/2017 06/20/2017 Inactive doxycycline hyclate 100 mg capsule RxNorm: 0688119 1 Capsule(s) PO BID 06/20/2017 06/26/2017 Inactive cyanocobalamin (vit B-12) 1,000 mcg/mL injection solution RxNorm: 650355 Milliliter(s) Inj 06/20/2017 06/20/2017 Inactive Keflex 500 mg capsule RxNorm: 213193 1 Capsule(s) PO TID 06/14/2017 06/23/2017 Inactive Please deliver to patient Mobic 15 mg tablet RxNorm: 021104 1 Tablet(s) PO daily 06/14/2017 04/25/2018 Inactive cyanocobalamin (vit B-12) 1,000 mcg/mL injection solution RxNorm: 137253 Milliliter(s) Inj 06/05/2017 06/05/2017 Inactive buspirone 15 mg tablet RxNorm: 065041 TAKE 1 TABLET BY MOUTH TWICE DAILY 05/31/2017 04/25/2018 Inactive Generic For:BUSPAR 15MG 05/31/2017 9:19:20 AM cyanocobalamin (vit B-12) 1,000 mcg/mL injection solution RxNorm: 052510 Milliliter(s) Inj 05/25/2017 05/25/2017 Inactive hydrocodone 5 mg-acetaminophen 325 mg tablet RxNorm: 086910 1-2 Tablet(s) PO Q6 as needed for pain 05/25/2017 06/23/2017 Inactive amiodarone 200 mg tablet RxNorm: 697223 1/2 Tablet(s) PO daily 05/22/2017 No Stop Date Active cardiology decreased to 100mg daily cyanocobalamin (vit B-12) 1,000 mcg/mL injection solution RxNorm: 092277 Milliliter(s) Inj 05/16/2017 05/16/2017 Inactive Zofran ODT 4 mg disintegrating tablet RxNorm: 633999 1 Tablet(s) PO TID as needed 05/03/2017 05/04/2017 Inactive hydrocodone 5 mg-acetaminophen 325 mg tablet RxNorm: 690502 1-2 Tablet(s) PO Q6 as needed for pain 05/01/2017 05/05/2017 Inactive cyanocobalamin (vit B-12) 1,000 mcg/mL injection solution RxNorm: 659292 1 Milliliter(s) Inj 05/01/2017 05/01/2017 Inactive cyanocobalamin (vit B-12) 1,000 mcg/mL injection solution RxNorm: 052855 INJECT ONE 1 ML EVERY TWO WEEKS 04/26/2017 12/04/2018 Active 04/26/2017 9:08:52 AM Zoloft 50 mg tablet RxNorm: 776519 Tablet(s) TAKE 1 TABLET BY MOUTH DAILY 04/25/2017 10/12/2017 Inactive Generic For:ZOLOFT 50MG cyanocobalamin (vit B-12) 1,000 mcg/mL injection solution RxNorm: 925284 Milliliter(s) Inj 04/18/2017 04/18/2017 Inactive liothyronine 5 mcg tablet RxNorm: 095171 1 Tablet(s) PO BID 04/13/2017 10/02/2017 Inactive cyanocobalamin (vit B-12) 1,000 mcg/mL injection solution RxNorm: 345059 Milliliter(s) Inj 04/06/2017 04/06/2017 Inactive hydrocodone 5 mg-acetaminophen 325 mg tablet RxNorm: 528319 1-2 Tablet(s) PO Q6 as needed for pain 04/06/2017 04/10/2017 Inactive cyanocobalamin (vit B-12) 1,000 mcg/mL injection solution RxNorm: 773352 Milliliter(s) Inj 03/22/2017 03/22/2017 Inactive alprazolam 0.25 mg tablet RxNorm: 186170 1 Tablet(s) PO BID 03/17/2017 12/11/2017 Inactive alprazolam 0.25 mg tablet RxNorm: 866964 1 Tablet(s) PO BID 03/16/2017 09/05/2017 Inactive hydrocodone 5 mg-acetaminophen 325 mg tablet RxNorm: 789597 1-2 Tablet(s) PO Q6 as needed for pain 03/09/2017 03/13/2017 Inactive cyanocobalamin (vit B-12) 1,000 mcg/mL injection solution RxNorm: 487391 Milliliter(s) Inj 03/09/2017 03/09/2017 Inactive cyanocobalamin (vit B-12) 1,000 mcg/mL injection solution RxNorm: 786699 Milliliter(s) Inj 02/23/2017 02/23/2017 Inactive cyanocobalamin (vit B-12) 1,000 mcg/mL injection solution RxNorm: 467386 Milliliter(s) Inj 02/09/2017 02/09/2017 Inactive hydrocodone 5 mg-acetaminophen 325 mg tablet RxNorm: 206818 1-2 Tablet(s) PO Q6 as needed for pain 02/08/2017 02/12/2017 Inactive Topamax 25 mg tablet RxNorm: 284294 1 Tablet(s) PO BID 01/23/2017 05/22/2017 Inactive Generic For:TOPAMAX 25MG 12/06/2016 9:15:13 AM cyanocobalamin (vit B-12) 1,000 mcg/mL injection solution RxNorm: 531400 Milliliter(s) Inj 01/23/2017 01/23/2017 Inactive cyanocobalamin (vit B-12) 1,000 mcg/mL injection solution RxNorm: 166060 Milliliter(s) Inj 01/10/2017 01/10/2017 Inactive hydrocodone 5 mg-acetaminophen 325 mg tablet RxNorm: 946594 1-2 Tablet(s) PO Q6 as needed for pain 01/09/2017 01/13/2017 Inactive cyanocobalamin (vit B-12) 1,000 mcg/mL injection solution RxNorm: 062080 1 Milliliter(s) Inj 12/28/2016 12/28/2016 Inactive cyanocobalamin (vit B-12) 1,000 mcg/mL injection solution RxNorm: 703890 Milliliter(s) Inj 12/14/2016 12/14/2016 Inactive buspirone 15 mg tablet RxNorm: 646609 1 Tablet(s) PO BID 12/12/2016 05/30/2017 Inactive hydrocodone 5 mg-acetaminophen 325 mg tablet RxNorm: 418311 1-2 Tablet(s) PO Q6 as needed for pain 12/08/2016 12/12/2016 Inactive Topamax 25 mg tablet RxNorm: 532989 TAKE 1 TABLET BY MOUTH EVERY DAY AT BEDTIME 12/06/2016 01/22/2017 Inactive Generic For:TOPAMAX 25MG 12/06/2016 9:15:13 AM Lac-Hydrin Five 5 % lotion RxNorm: 037991 1 Gram(s) TOP daily 12/02/2016 05/02/2018 Inactive cyanocobalamin (vit B-12) 1,000 mcg/mL injection solution RxNorm: 147066 Milliliter(s) Inj 11/24/2016 11/24/2016 Inactive Ceftin 500 mg tablet RxNorm: 817154 1 Tablet(s) PO BID 11/11/2016 06/13/2017 Inactive Cipro 500 mg tablet RxNorm: 032386 1 Tablet(s) PO BID 11/11/2016 11/10/2016 Inactive Cipro 500 mg tablet RxNorm: 745078 1 Tablet(s) PO BID 11/11/2016 11/11/2016 Inactive cyanocobalamin (vit B-12) 1,000 mcg/mL injection solution RxNorm: 286331 1 Milliliter(s) Inj 11/07/2016 11/07/2016 Inactive hydrocodone 5 mg-acetaminophen 325 mg tablet RxNorm: 028293 1-2 Tablet(s) PO Q6 as needed for pain 11/02/2016 11/06/2016 Inactive cyanocobalamin (vit B-12) 1,000 mcg/mL injection solution RxNorm: 870250 Milliliter(s) Inj 10/24/2016 10/24/2016 Inactive levothyroxine 125 mcg tablet RxNorm: 132292 Tablet(s) 1 Tablet(s) PO daily 10/24/2016 04/21/2017 Inactive liothyronine 5 mcg tablet RxNorm: 325058 1 Tablet(s) PO BID 10/24/2016 04/12/2017 Inactive hydrocodone 5 mg-acetaminophen 325 mg tablet RxNorm: 563674 1-2 Tablet(s) PO Q6 as needed for pain 10/17/2016 10/21/2016 Inactive Keflex 500 mg capsule RxNorm: 071227 1 Capsule(s) PO TID 10/07/2016 10/06/2016 Inactive Keflex 500 mg capsule RxNorm: 572299 1 Capsule(s) PO TID 10/07/2016 10/16/2016 Inactive Please deliver to patient cyanocobalamin (vit B-12) 1,000 mcg/mL injection solution RxNorm: 720765 1 Milliliter(s) Inj 09/29/2016 09/29/2016 Inactive alprazolam 0.25 mg tablet RxNorm: 435181 1 Tablet(s) PO BID 09/20/2016 03/16/2017 Inactive Cozaar 100 mg tablet RxNorm: 845466 1 Tablet(s) PO daily 09/14/2016 No Stop Date Active metoprolol tartrate 50 mg tablet RxNorm: 618197 1/2 Tablet(s) PO BID 09/14/2016 12/12/2016 Inactive Zoloft 50 mg tablet RxNorm: 355347 Tablet(s) TAKE 1 TABLET BY MOUTH DAILY 09/14/2016 03/12/2017 Inactive Generic For:ZOLOFT 50MG liothyronine 5 mcg tablet RxNorm: 537182 1 Tablet(s) PO BID 09/14/2016 10/23/2016 Inactive Calmoseptine 0.44 %-20.6 % topical ointment RxNorm: 167906 1 Application TOP BID and as needed to sore on buttocks 09/07/2016 No Stop Date Active cyanocobalamin (vit B-12) 1,000 mcg/mL injection solution RxNorm: 088153 Milliliter(s) Inj 08/29/2016 08/29/2016 Inactive hydrocodone 5 mg-acetaminophen 325 mg tablet RxNorm: 443174 1-2 Tablet(s) PO Q6 as needed for pain 08/29/2016 10/16/2016 Inactive levothyroxine 125 mcg tablet RxNorm: 008484 1 Tablet(s) PO daily 08/25/2016 10/23/2016 Inactive Topamax 25 mg tablet RxNorm: 245926 TAKE 1 TABLET BY MOUTH EVERY DAY AT BEDTIME 08/17/2016 12/05/2016 Inactive Generic For:TOPAMAX 25MG 08/17/2016 2:14:37 PM hydrocodone 5 mg-acetaminophen 325 mg tablet RxNorm: 316284 1-2 Tablet(s) PO Q6 as needed for pain 08/11/2016 08/28/2016 Inactive hydrocodone 5 mg-acetaminophen 325 mg tablet RxNorm: 349082 1 -2 Tablet(s) PO Q6 as needed for pain 08/11/2016 08/18/2016 Inactive hydrocodone 5 mg-acetaminophen 325 mg tablet RxNorm: 420044 1 Tablet(s) PO Q6 as needed for pain 08/05/2016 08/10/2016 Inactive cyanocobalamin (vit B-12) 1,000 mcg/mL injection solution RxNorm: 123797 Milliliter(s) Inj 08/04/2016 08/04/2016 Inactive Norvasc 10 mg tablet RxNorm: 830975 1 Tablet(s) PO daily 07/26/2016 07/20/2017 Inactive alprazolam 0.25 mg tablet RxNorm: 821413 1 Tablet(s) PO QHS 07/21/2016 09/19/2016 Inactive Norvasc 5 mg tablet RxNorm: 485513 1 Tablet(s) PO daily 07/21/2016 07/25/2016 Inactive levothyroxine 125 mcg tablet RxNorm: 863223 1 Tablet(s) PO daily 07/21/2016 12/11/2017 Inactive cyanocobalamin (vit B-12) 1,000 mcg/mL injection solution RxNorm: 409266 Milliliter(s) Inj 07/21/2016 07/21/2016 Inactive Zoloft 50 mg tablet RxNorm: 458847 Tablet(s) TAKE 1 TABLET BY MOUTH DAILY 07/21/2016 09/13/2016 Inactive Generic For:ZOLOFT 50MG cyanocobalamin (vit B-12) 1,000 mcg/mL injection solution RxNorm: 574069 1 Milliliter(s) Inj 07/05/2016 07/05/2016 Inactive cyanocobalamin (vit B-12) 1,000 mcg/mL injection solution RxNorm: 597314 1 Milliliter(s) Inj 06/22/2016 06/22/2016 Inactive cyanocobalamin (vit B-12) 1,000 mcg/mL injection solution RxNorm: 228960 Milliliter(s) Inj 06/09/2016 06/09/2016 Inactive Aricept 10 mg tablet RxNorm: 815947 1 Tablet(s) PO daily 05/27/2016 05/21/2017 Inactive Mobic 15 mg tablet RxNorm: 542718 1 Tablet(s) PO daily 05/27/2016 05/21/2017 Inactive levothyroxine 125 mcg tablet RxNorm: 700986 1 Tablet(s) PO daily 05/25/2016 07/20/2016 Inactive cyanocobalamin (vit B-12) 1,000 mcg/mL injection solution RxNorm: 610595 1 Milliliter(s) Inj 05/25/2016 05/25/2016 Inactive doxycycline hyclate 100 mg capsule RxNorm: 3063874 1 Capsule(s) PO BID 05/16/2016 05/15/2016 Inactive doxycycline hyclate 100 mg capsule RxNorm: 8096469 1 Capsule(s) PO BID 05/16/2016 05/22/2016 Inactive cyanocobalamin (vit B-12) 1,000 mcg/mL injection solution RxNorm: 192083 Milliliter(s) Inj 05/10/2016 05/10/2016 Inactive cyanocobalamin (vit B-12) 1,000 mcg/mL injection solution RxNorm: 583330 Milliliter(s) Inj 04/26/2016 04/26/2016 Inactive Topamax 25 mg tablet RxNorm: 104928 1 Tablet(s) PO QPM 04/22/2016 08/16/2016 Inactive cyanocobalamin (vit B-12) 1,000 mcg/mL injection solution RxNorm: 849019 Milliliter(s) 1 Milliliter(s) Inj [id number] 04/11/2016 12/31/2017 Inactive liothyronine 5 mcg tablet RxNorm: 481766 1 Tablet(s) PO BID 04/11/2016 09/13/2016 Inactive cyanocobalamin (vit B-12) 1,000 mcg/mL injection solution RxNorm: 519732 Milliliter(s) Inj 04/11/2016 04/11/2016 Inactive cyanocobalamin (vit B-12) 1,000 mcg/mL injection solution RxNorm: 020179 Milliliter(s) Inj 03/31/2016 03/31/2016 Inactive cyanocobalamin (vit B-12) 1,000 mcg/mL injection solution RxNorm: 595209 1 Milliliter(s) Inj 03/15/2016 03/15/2016 Inactive levothyroxine 125 mcg tablet RxNorm: 763645 1 Tablet(s) PO daily 2016 03/03/2016 Inactive levothyroxine 125 mcg tablet RxNorm: 882254 1 Tablet(s) PO daily 2016 05/24/2016 Inactive cyanocobalamin (vit B-12) 1,000 mcg/mL injection solution RxNorm: 459996 Milliliter(s) Inj 02/25/2016 02/25/2016 Inactive cyanocobalamin (vit B-12) 1,000 mcg/mL injection solution RxNorm: 626518 1 Milliliter(s) Inj 02/02/2016 02/02/2016 Inactive sucralfate 1 gram tablet RxNorm: 607028 1 Tablet(s) PO QHS 01/25/2016 No Stop Date Active amiodarone 200 mg tablet RxNorm: 846304 1/2 Tablet(s) PO BID 01/25/2016 05/21/2017 Inactive cyanocobalamin (vit B-12) 1,000 mcg/mL injection solution RxNorm: 795084 Milliliter(s) Inj 01/18/2016 01/18/2016 Inactive cyanocobalamin (vit B-12) 1,000 mcg/mL injection solution RxNorm: 072069 Milliliter(s) Inj 12/29/2015 12/29/2015 Inactive Topamax 25 mg tablet RxNorm: 903583 1 Tablet(s) PO QPM 12/08/2015 04/05/2016 Inactive cyanocobalamin (vit B-12) 1,000 mcg/mL injection solution RxNorm: 488262 Milliliter(s) Inj 12/08/2015 12/08/2015 Inactive Bactrim DS 800 mg-160 mg tablet RxNorm: 602986 1 Tablet(s) PO BID 11/23/2015 11/22/2015 Inactive cyanocobalamin (vit B-12) 1,000 mcg/mL injection solution RxNorm: 042272 Milliliter(s) Inj 11/23/2015 11/23/2015 Inactive Bactrim DS 800 mg-160 mg tablet RxNorm: 831592 1 Tablet(s) PO BID 11/23/2015 11/29/2015 Inactive cyanocobalamin (vit B-12) 1,000 mcg/mL injection solution RxNorm: 953235 Milliliter(s) Inj 11/11/2015 11/11/2015 Inactive amoxicillin 500 mg capsule RxNorm: 475786 1 Capsule(s) PO TID 11/10/2015 11/19/2015 Inactive Zithromax Z-Henrique 250 mg tablet RxNorm: 806307 1 Tablet(s) PO UD 11/10/2015 01/24/2016 Inactive zpack x 1 amoxicillin 500 mg capsule RxNorm: 650943 1 Capsule(s) PO TID 11/10/2015 11/09/2015 Inactive cyanocobalamin (vit B-12) 1,000 mcg/mL injection solution RxNorm: 316611 1 Milliliter(s) Inj 10/29/2015 10/29/2015 Inactive Ramah 3 capsule RxNorm: 1 Capsule(s) PO QAM , 2 Capsules at noon, 1 Capsule QHS 10/13/2015 No Stop Date Active potassium chloride ER 20 mEq tablet,extended release RxNorm: 053416 2 Tablet(s) PO daily at noon 10/13/2015 No Stop Date Active alprazolam 0.25 mg tablet RxNorm: 296259 1 Tablet(s) PO QHS 10/13/2015 07/20/2016 Inactive amiodarone 200 mg tablet RxNorm: 871663 1 Tablet(s) PO BID 10/13/2015 01/24/2016 Inactive cyanocobalamin (vit B-12) 1,000 mcg/mL injection solution RxNorm: 428887 1 Milliliter(s) Inj 10/12/2015 10/12/2015 Inactive Zofran 4 mg tablet RxNorm: 513066 1 Tablet(s) PO daily as needed 10/07/2015 05/24/2016 Inactive Zoloft 50 mg tablet RxNorm: 240999 TAKE 1 TABLET BY MOUTH DAILY 10/05/2015 05/01/2016 Inactive Generic For:ZOLOFT 50MG cyanocobalamin (vit B-12) 1,000 mcg/mL injection solution RxNorm: 285602 1 Milliliter(s) Inj 09/29/2015 09/29/2015 Inactive cyanocobalamin (vit B-12) 1,000 mcg/mL injection solution RxNorm: 440667 1 Milliliter(s) Inj 09/17/2015 09/17/2015 Inactive Norvasc 5 mg tablet RxNorm: 692576 1 Tablet(s) PO daily 09/17/2015 07/20/2016 Inactive liothyronine 5 mcg tablet RxNorm: 708753 1 Tablet(s) PO BID 09/17/2015 03/14/2016 Inactive Zoloft 50 mg tablet RxNorm: 497774 1 Tablet(s) PO daily 09/17/2015 10/04/2015 Inactive buspirone 15 mg tablet RxNorm: 943059 1 Tablet(s) PO BID 09/17/2015 09/10/2016 Inactive buspirone 15 mg tablet RxNorm: 960085 1 Tablet(s) PO BID 09/14/2015 09/16/2015 Inactive Topamax 25 mg tablet RxNorm: 748060 1 Tablet(s) PO QPM 09/03/2015 12/07/2015 Inactive cyanocobalamin (vit B-12) 1,000 mcg/mL injection solution RxNorm: 752988 1 Milliliter(s) Inj 09/03/2015 09/03/2015 Inactive cyanocobalamin (vit B-12) 1,000 mcg/mL injection solution RxNorm: 309736 Milliliter(s) Inj 08/17/2015 08/17/2015 Inactive cyanocobalamin (vit B-12) 1,000 mcg/mL injection solution RxNorm: 485679 Milliliter(s) Inj 08/06/2015 08/06/2015 Inactive levothyroxine 150 mcg tablet RxNorm: 415435 1 Tablet(s) PO daily 07/22/2015 03/03/2016 Inactive Aricept 10 mg tablet RxNorm: 395242 1 Tablet(s) PO daily 07/22/2015 05/26/2016 Inactive Mobic 15 mg tablet RxNorm: 870393 1 Tablet(s) PO daily 07/22/2015 05/26/2016 Inactive cyanocobalamin (vit B-12) 1,000 mcg/mL injection solution RxNorm: 191149 Milliliter(s) Inj 07/22/2015 07/22/2015 Inactive liothyronine 5 mcg tablet RxNorm: 849999 1 Tablet(s) PO BID 07/22/2015 09/16/2015 Inactive cyanocobalamin (vit B-12) 1,000 mcg/mL injection solution RxNorm: 665296 Milliliter(s) Inj 07/08/2015 07/08/2015 Inactive cyanocobalamin (vit B-12) 1,000 mcg/mL injection solution RxNorm: 866783 Milliliter(s) Inj 06/23/2015 06/23/2015 Inactive cyanocobalamin (vit B-12) 1,000 mcg/mL injection solution RxNorm: 275169 1 Milliliter(s) Inj 06/08/2015 06/08/2015 Inactive cyanocobalamin (vit B-12) 1,000 mcg/mL injection solution RxNorm: 142766 Milliliter(s) Inj 05/27/2015 05/27/2015 Inactive Aricept 10 mg tablet RxNorm: 851585 1 Tablet(s) PO daily 05/20/2015 07/21/2015 Inactive Zofran 4 mg tablet RxNorm: 800855 1 Tablet(s) PO daily as needed 05/20/2015 06/18/2015 Inactive alprazolam 0.25 mg tablet RxNorm: 132060 1 Tablet(s) PO BID 05/20/2015 10/12/2015 Inactive Mobic 15 mg tablet RxNorm: 053284 1 Tablet(s) PO daily 05/20/2015 07/21/2015 Inactive tramadol ER 100 mg tablet,extended release 24 hr RxNorm: 476436 1 Tablet(s) PO Q6 as needed 05/13/2015 No Stop Date Active cyanocobalamin (vit B-12) 1,000 mcg/mL injection solution RxNorm: 817357 1 Milliliter(s) Inj 05/12/2015 05/12/2015 Inactive Topamax 25 mg tablet RxNorm: 536634 1 Tablet(s) PO BID (start at one pill at bedtime x 1week then twice daily thereafter) 05/12/2015 09/02/2015 Inactive cyanocobalamin (vit B-12) 1,000 mcg/mL injection kit RxNorm: 751057 kit Inj 04/30/2015 04/30/2015 Inactive cyanocobalamin (vit B-12) 1,000 mcg/mL injection solution RxNorm: 771128 Milliliter(s) Inj 04/16/2015 04/16/2015 Inactive levothyroxine 150 mcg tablet RxNorm: 298432 1 Tablet(s) PO daily 04/08/2015 07/21/2015 Inactive cyanocobalamin (vit B-12) 1,000 mcg/mL injection solution RxNorm: 098433 Milliliter(s) 1 Milliliter(s) Inj [id number] 04/08/2015 04/10/2016 Inactive Cytomel 5 mcg tablet RxNorm: 668086 1 Tablet(s) PO BID 04/08/2015 10/12/2015 Inactive Cytomel 5 mcg tablet RxNorm: 747983 1 Tablet(s) PO BID 04/07/2015 04/07/2015 Inactive Cytomel 5 mcg tablet RxNorm: 670392 1 Tablet(s) PO BID 04/07/2015 04/06/2015 Inactive cyanocobalamin (vit B-12) 1,000 mcg/mL injection solution RxNorm: 335074 Milliliter(s) Inj 04/02/2015 04/02/2015 Inactive cyanocobalamin (vit B-12) 1,000 mcg/mL injection solution RxNorm: 651453 Milliliter(s) Inj 03/18/2015 03/18/2015 Inactive cyanocobalamin (vit B-12) 1,000 mcg/mL injection solution RxNorm: 777137 Milliliter(s) 1 Milliliter(s) Inj [id number] 03/18/2015 04/07/2015 Inactive cyanocobalamin (vit B-12) 1,000 mcg/mL injection solution RxNorm: 823080 1 Milliliter(s) Inj [id number] 03/16/2015 03/17/2015 Inactive cyanocobalamin (vit B-12) 1,000 mcg/mL injection solution RxNorm: 923485 Milliliter(s) Inj 03/03/2015 03/03/2015 Inactive cyanocobalamin (vit B-12) 1,000 mcg/mL injection solution RxNorm: 479271 Milliliter(s) Inj 02/18/2015 02/18/2015 Inactive cyanocobalamin (vit B-12) 1,000 mcg/mL injection solution RxNorm: 634961 Milliliter(s) Inj 02/04/2015 02/04/2015 Inactive cyanocobalamin (vit B-12) 1,000 mcg/mL injection solution RxNorm: 758651 Milliliter(s) Inj 01/22/2015 01/22/2015 Inactive Lac-Hydrin Five 5 % lotion RxNorm: 744353 1 TOP daily 01/13/2015 03/13/2015 Inactive Lac-Hydrin Five 5 % lotion RxNorm: 792796 1 TOP daily 01/13/2015 01/12/2015 Inactive cyanocobalamin (vit B-12) 1,000 mcg/mL injection solution RxNorm: 229670 Milliliter(s) Inj 01/08/2015 01/08/2015 Inactive cyanocobalamin (vit B-12) 1,000 mcg/mL injection solution RxNorm: 344076 Milliliter(s) Inj 12/25/2014 12/25/2014 Inactive levothyroxine 150 mcg tablet RxNorm: 400471 1 Tablet(s) PO daily 12/24/2014 04/07/2015 Inactive tramadol 50 mg tablet RxNorm: 961749 1-2 Tablet(s) PO Q6 as needed 12/17/2014 05/12/2015 Inactive alprazolam 0.25 mg tablet RxNorm: 885146 1 Tablet(s) PO BID 12/17/2014 04/15/2015 Inactive Pradaxa 150 mg capsule RxNorm: 3257414 1 Capsule(s) PO BID 12/16/2014 No Stop Date Active metoprolol tartrate 50 mg tablet RxNorm: 108863 1/2 Tablet(s) PO BID 12/16/2014 09/13/2016 Inactive buspirone 15 mg tablet RxNorm: 655208 1 Tablet(s) PO BID 12/16/2014 09/13/2015 Inactive cyanocobalamin (vit B-12) 1,000 mcg/mL injection solution RxNorm: 866737 1 Milliliter(s) Inj [id number] 12/16/2014 03/15/2015 Inactive cyanocobalamin (vit B-12) 1,000 mcg/mL injection solution RxNorm: 895504 1 Milliliter(s) Inj [id number] 12/16/2014 12/15/2014 Inactive sucralfate 1 gram tablet RxNorm: 679361 Tablet(s) PO QID 12/16/2014 12/10/2015 Inactive cyanocobalamin (vit B-12) 1,000 mcg/mL injection solution RxNorm: 086878 Milliliter(s) Inj 12/10/2014 12/10/2014 Inactive cyanocobalamin (vit B-12) 1,000 mcg/mL injection solution RxNorm: 960323 Milliliter(s) Inj 11/26/2014 11/26/2014 Inactive Zoloft 50 mg tablet RxNorm: 981861 1 Tablet(s) PO daily 11/24/2014 06/21/2015 Inactive Zoloft 50 mg tablet RxNorm: 295054 1 Tablet(s) PO daily 11/24/2014 11/23/2014 Inactive cyanocobalamin (vit B-12) 1,000 mcg/mL injection kit RxNorm: 516756 Milliliter(s) Inj 11/12/2014 11/12/2014 Inactive cyanocobalamin (vit B-12) 1,000 mcg/mL injection solution RxNorm: 329954 Milliliter(s) Inj 10/28/2014 10/28/2014 Inactive [SAVINGS FOR NON-COVERED DRUGS -- BIN:[id number], PCN: [id number], Group: [id number], ID# [id number], Questions: . THIS IS NOT INSURANCE.] promethazine oral RxNorm: 8745 oral No Start Date Active tramadol 50 mg tablet RxNorm: 801504 1 Tablet(s) PO TID No Start Date Active digoxin 125 mcg tablet RxNorm: 198701 Tablet(s) PO every other day No Start Date Active furosemide 40 mg tablet RxNorm: 507552 1 Tablet(s) PO daily No Start Date Active Vitamin D3 5,000 unit tablet RxNorm: 177511 1 Tablet(s) PO daily No Start Date Active erythromycin 250 mg capsule,delayed release RxNorm: 658729 1 Capsule(s) PO AC No Start Date Active Protonix 40 mg tablet,delayed release RxNorm: 571590 1 Tablet(s) PO BID No Start Date Active Cozaar 100 mg tablet RxNorm: 132436 1 Tablet(s) PO daily No Start Date 09/13/2016 Inactive sucralfate 1 gram tablet RxNorm: 920707 Tablet(s) PO QID No Start Date 12/15/2014 Inactive amiodarone 200 mg tablet RxNorm: 537480 2 Tablet(s) PO daily No Start Date 10/13/2015 Inactive buspirone 15 mg tablet RxNorm: 894332 1 Tablet(s) PO daily No Start Date 12/15/2014 Inactive potassium chloride ER 20 mEq tablet,extended release RxNorm: 971605 1 Tablet(s) PO daily No Start Date 10/12/2015 Inactive Prilosec 40 mg capsule,delayed release RxNorm: 054554 1 Capsule(s) PO daily No Start Date 09/02/2015 Inactive Ramah 3 capsule RxNorm: Capsule(s) PO No Start Date 10/12/2015 Inactive alprazolam 0.25 mg tablet RxNorm: 928970 Tablet(s) PO QHS No Start Date 12/16/2014 Inactive levothyroxine 125 mcg tablet RxNorm: 776882 1 Tablet(s) PO daily No Start Date 12/23/2014 Inactive liothyronine 5 mcg tablet RxNorm: 660899 1 Tablet(s) PO BID No Start Date 07/21/2015 Inactive Mobic 15 mg tablet RxNorm: 467702 Tablet(s) PO daily No Start Date 05/19/2015 Inactive Norvasc 5 mg tablet RxNorm: 863546 1 Tablet(s) PO daily No Start Date 09/16/2015 Inactive Zofran 4 mg tablet RxNorm: 682780 1 Tablet(s) PO daily as needed No Start Date 05/19/2015 Inactive Tamiflu 75 mg capsule RxNorm: 156443 1 Capsule(s) PO BID No Start Date 07/23/2017 Inactive tramadol 50 mg tablet RxNorm: 028130 1 Tablet(s) PO daily as needed No Start Date 12/16/2014 Inactive amiodarone 200 mg tablet RxNorm: 548047 1 Tablet(s) PO daily No Start Date 10/12/2015 Inactive Zofran ODT 4 mg disintegrating tablet RxNorm: 130410 1 Tablet(s) PO TID as needed No Start Date 05/02/2017 Inactive albuterol sulfate 2.5 mg/3 mL (0.083 %) solution for nebulization RxNorm: 404736 3 Milliliter(s) INH Q6 PRN No Start Date 09/20/2017 Inactive meclizine 25 mg tablet RxNorm: 848156 Tablet(s) PO as needed No Start Date 05/24/2016 Inactive Pradaxa 150 mg capsule RxNorm: 2424322 1 Capsule(s) PO daily No Start Date 12/15/2014 Inactive metoprolol tartrate 50 mg tablet RxNorm: 886150 1/2 Tablet(s) PO No Start Date 12/15/2014 Inactive Aricept 10 mg tablet RxNorm: 950140 Tablet(s) PO daily No Start Date 05/19/2015 Inactive Calmoseptine 0.44 %-20.6 % topical ointment RxNorm: 235710 1 Application TOP BID and as needed to sore on buttocks No Start Date 09/06/2016 Inactive Zithromax Z-Henrique 250 mg tablet RxNorm: 648651 1 Tablet(s) PO UD No Start Date 11/09/2015 Inactive zpack x 1 Medication Administered Medication Codes Instructions Start Date Status cyanocobalamin (vit B-12) 1,000 mcg/mL injection solution RxNorm: 054539 Milliliter 09/27/2018 No longer Active cyanocobalamin (vit B-12) 1,000 mcg/mL injection solution RxNorm: 412318 Milliliter 09/11/2018 No longer Active cyanocobalamin (vit B-12) 1,000 mcg/mL injection solution RxNorm: 741728 Milliliter 08/29/2018 No longer Active cyanocobalamin (vit B-12) 1,000 mcg/mL injection solution RxNorm: 444601 Milliliter 08/15/2018 No longer Active Kenalog 40 mg/mL suspension for injection RxNorm: 7671651 Milliliter 08/15/2018 No longer Active cyanocobalamin (vit B-12) 1,000 mcg/mL injection solution RxNorm: 329042 Milliliter 08/01/2018 No longer Active cyanocobalamin (vit B-12) 1,000 mcg/mL injection solution RxNorm: 010536 Milliliter 07/19/2018 No longer Active cyanocobalamin (vit B-12) 1,000 mcg/mL injection solution RxNorm: 079151 Milliliter 07/04/2018 No longer Active cyanocobalamin (vit B-12) 1,000 mcg/mL injection solution RxNorm: 281665 Milliliter 06/20/2018 No longer Active cyanocobalamin (vit B-12) 1,000 mcg/mL injection solution RxNorm: 346235 Milliliter 06/06/2018 No longer Active cyanocobalamin (vit B-12) 1,000 mcg/mL injection solution RxNorm: 450097 Milliliter 05/24/2018 No longer Active cyanocobalamin (vit B-12) 1,000 mcg/mL injection solution RxNorm: 872068 Milliliter 05/09/2018 No longer Active cyanocobalamin (vit B-12) 1,000 mcg/mL injection solution RxNorm: 071937 Milliliter 04/26/2018 No longer Active cyanocobalamin (vit B-12) 1,000 mcg/mL injection solution RxNorm: 986596 Milliliter 04/12/2018 No longer Active cyanocobalamin (vit B-12) 1,000 mcg/mL injection solution RxNorm: 906337 Milliliter 03/30/2018 No longer Active cyanocobalamin (vit B-12) 1,000 mcg/mL injection solution RxNorm: 593906 Milliliter 03/16/2018 No longer Active cyanocobalamin (vit B-12) 1,000 mcg/mL injection solution RxNorm: 335192 Milliliter 03/02/2018 No longer Active cyanocobalamin (vit B-12) 1,000 mcg/mL injection solution RxNorm: 066088 Milliliter 02/08/2018 No longer Active cyanocobalamin (vit B-12) 1,000 mcg/mL injection solution RxNorm: 940508 Milliliter 01/24/2018 No longer Active cyanocobalamin (vit B-12) 1,000 mcg/mL injection solution RxNorm: 095076 Milliliter 01/10/2018 No longer Active cyanocobalamin (vit B-12) 1,000 mcg/mL injection solution RxNorm: 574075 Milliliter 12/27/2017 No longer Active cyanocobalamin (vit B-12) 1,000 mcg/mL injection solution RxNorm: 881823 1Milliliter 12/12/2017 No longer Active cyanocobalamin (vit B-12) 1,000 mcg/mL injection solution RxNorm: 584411 Milliliter 12/01/2017 No longer Active cyanocobalamin (vit B-12) 1,000 mcg/mL injection solution RxNorm: 102987 1Milliliter 11/17/2017 No longer Active cyanocobalamin (vit B-12) 1,000 mcg/mL injection solution RxNorm: 851238 1Milliliter 11/02/2017 No longer Active cyanocobalamin (vit B-12) 1,000 mcg/mL injection solution RxNorm: 943478 1Milliliter 10/20/2017 No longer Active cyanocobalamin (vit B-12) 1,000 mcg/mL injection solution RxNorm: 043346 Milliliter 10/06/2017 No longer Active cyanocobalamin (vit B-12) 1,000 mcg/mL injection solution RxNorm: 872223 Milliliter 09/21/2017 No longer Active Kenalog 40 mg/mL suspension for injection RxNorm: 4996871 Milliliter 09/15/2017 No longer Active cyanocobalamin (vit B-12) 1,000 mcg/mL injection solution RxNorm: 608672 Milliliter 09/07/2017 No longer Active cyanocobalamin (vit B-12) 1,000 mcg/mL injection solution RxNorm: 584252 Milliliter 08/24/2017 No longer Active cyanocobalamin (vit B-12) 1,000 mcg/mL injection solution RxNorm: 424927 Milliliter 07/06/2017 No longer Active Kenalog 40 mg/mL suspension for injection RxNorm: 6848330 1Milliliter 06/20/2017 No longer Active cyanocobalamin (vit B-12) 1,000 mcg/mL injection solution RxNorm: 084555 Milliliter 06/20/2017 No longer Active cyanocobalamin (vit B-12) 1,000 mcg/mL injection solution RxNorm: 041315 Milliliter 06/05/2017 No longer Active cyanocobalamin (vit B-12) 1,000 mcg/mL injection solution RxNorm: 437713 Milliliter 05/25/2017 No longer Active cyanocobalamin (vit B-12) 1,000 mcg/mL injection solution RxNorm: 652022 Milliliter 05/16/2017 No longer Active cyanocobalamin (vit B-12) 1,000 mcg/mL injection solution RxNorm: 418184 1Milliliter 05/01/2017 No longer Active cyanocobalamin (vit B-12) 1,000 mcg/mL injection solution RxNorm: 319738 Milliliter 04/18/2017 No longer Active cyanocobalamin (vit B-12) 1,000 mcg/mL injection solution RxNorm: 378165 Milliliter 04/06/2017 No longer Active cyanocobalamin (vit B-12) 1,000 mcg/mL injection solution RxNorm: 799687 Milliliter 03/22/2017 No longer Active cyanocobalamin (vit B-12) 1,000 mcg/mL injection solution RxNorm: 155607 Milliliter 03/09/2017 No longer Active cyanocobalamin (vit B-12) 1,000 mcg/mL injection solution RxNorm: 297762 Milliliter 02/23/2017 No longer Active cyanocobalamin (vit B-12) 1,000 mcg/mL injection solution RxNorm: 364240 Milliliter 02/09/2017 No longer Active cyanocobalamin (vit B-12) 1,000 mcg/mL injection solution RxNorm: 191575 Milliliter 01/23/2017 No longer Active cyanocobalamin (vit B-12) 1,000 mcg/mL injection solution RxNorm: 516449 Milliliter 01/10/2017 No longer Active cyanocobalamin (vit B-12) 1,000 mcg/mL injection solution RxNorm: 733883 1Milliliter 12/28/2016 No longer Active cyanocobalamin (vit B-12) 1,000 mcg/mL injection solution RxNorm: 074681 Milliliter 12/14/2016 No longer Active cyanocobalamin (vit B-12) 1,000 mcg/mL injection solution RxNorm: 371235 Milliliter 11/24/2016 No longer Active cyanocobalamin (vit B-12) 1,000 mcg/mL injection solution RxNorm: 734260 1Milliliter 11/07/2016 No longer Active cyanocobalamin (vit B-12) 1,000 mcg/mL injection solution RxNorm: 859245 Milliliter 10/24/2016 No longer Active cyanocobalamin (vit B-12) 1,000 mcg/mL injection solution RxNorm: 506882 1Milliliter 09/29/2016 No longer Active cyanocobalamin (vit B-12) 1,000 mcg/mL injection solution RxNorm: 633250 Milliliter 08/29/2016 No longer Active cyanocobalamin (vit B-12) 1,000 mcg/mL injection solution RxNorm: 705757 Milliliter 08/04/2016 No longer Active cyanocobalamin (vit B-12) 1,000 mcg/mL injection solution RxNorm: 957990 Milliliter 07/21/2016 No longer Active cyanocobalamin (vit B-12) 1,000 mcg/mL injection solution RxNorm: 478003 1Milliliter 07/05/2016 No longer Active cyanocobalamin (vit B-12) 1,000 mcg/mL injection solution RxNorm: 316615 1Milliliter 06/22/2016 No longer Active cyanocobalamin (vit B-12) 1,000 mcg/mL injection solution RxNorm: 268335 Milliliter 06/09/2016 No longer Active cyanocobalamin (vit B-12) 1,000 mcg/mL injection solution RxNorm: 435121 1Milliliter 05/25/2016 No longer Active cyanocobalamin (vit B-12) 1,000 mcg/mL injection solution RxNorm: 005603 Milliliter 05/10/2016 No longer Active cyanocobalamin (vit B-12) 1,000 mcg/mL injection solution RxNorm: 290864 Milliliter 04/26/2016 No longer Active cyanocobalamin (vit B-12) 1,000 mcg/mL injection solution RxNorm: 383423 Milliliter 04/11/2016 No longer Active cyanocobalamin (vit B-12) 1,000 mcg/mL injection solution RxNorm: 268546 Milliliter 03/31/2016 No longer Active cyanocobalamin (vit B-12) 1,000 mcg/mL injection solution RxNorm: 604495 1Milliliter 03/15/2016 No longer Active cyanocobalamin (vit B-12) 1,000 mcg/mL injection solution RxNorm: 768200 Milliliter 02/25/2016 No longer Active cyanocobalamin (vit B-12) 1,000 mcg/mL injection solution RxNorm: 561219 1Milliliter 02/02/2016 No longer Active cyanocobalamin (vit B-12) 1,000 mcg/mL injection solution RxNorm: 651451 Milliliter 01/18/2016 No longer Active cyanocobalamin (vit B-12) 1,000 mcg/mL injection solution RxNorm: 192151 Milliliter 12/29/2015 No longer Active cyanocobalamin (vit B-12) 1,000 mcg/mL injection solution RxNorm: 751948 Milliliter 12/08/2015 No longer Active cyanocobalamin (vit B-12) 1,000 mcg/mL injection solution RxNorm: 544831 Milliliter 11/23/2015 No longer Active cyanocobalamin (vit B-12) 1,000 mcg/mL injection solution RxNorm: 612182 Milliliter 11/11/2015 No longer Active cyanocobalamin (vit B-12) 1,000 mcg/mL injection solution RxNorm: 509955 1Milliliter 10/29/2015 No longer Active cyanocobalamin (vit B-12) 1,000 mcg/mL injection solution RxNorm: 487026 1Milliliter 10/12/2015 No longer Active cyanocobalamin (vit B-12) 1,000 mcg/mL injection solution RxNorm: 992613 1Milliliter 09/29/2015 No longer Active cyanocobalamin (vit B-12) 1,000 mcg/mL injection solution RxNorm: 443263 1Milliliter 09/17/2015 No longer Active cyanocobalamin (vit B-12) 1,000 mcg/mL injection solution RxNorm: 875353 1Milliliter 09/03/2015 No longer Active cyanocobalamin (vit B-12) 1,000 mcg/mL injection solution RxNorm: 321418 Milliliter 08/17/2015 No longer Active cyanocobalamin (vit B-12) 1,000 mcg/mL injection solution RxNorm: 907036 Milliliter 08/06/2015 No longer Active cyanocobalamin (vit B-12) 1,000 mcg/mL injection solution RxNorm: 134064 Milliliter 07/22/2015 No longer Active cyanocobalamin (vit B-12) 1,000 mcg/mL injection solution RxNorm: 443973 Milliliter 07/08/2015 No longer Active cyanocobalamin (vit B-12) 1,000 mcg/mL injection solution RxNorm: 465586 Milliliter 06/23/2015 No longer Active cyanocobalamin (vit B-12) 1,000 mcg/mL injection solution RxNorm: 511519 1Milliliter 06/08/2015 No longer Active cyanocobalamin (vit B-12) 1,000 mcg/mL injection solution RxNorm: 306802 Milliliter 05/27/2015 No longer Active cyanocobalamin (vit B-12) 1,000 mcg/mL injection solution RxNorm: 645649 1Milliliter 05/12/2015 No longer Active cyanocobalamin (vit B-12) 1,000 mcg/mL injection kit RxNorm: 688080 kit 04/30/2015 No longer Active cyanocobalamin (vit B-12) 1,000 mcg/mL injection solution RxNorm: 522852 Milliliter 04/16/2015 No longer Active cyanocobalamin (vit B-12) 1,000 mcg/mL injection solution RxNorm: 419222 Milliliter 04/02/2015 No longer Active cyanocobalamin (vit B-12) 1,000 mcg/mL injection solution RxNorm: 893475 Milliliter 03/18/2015 No longer Active cyanocobalamin (vit B-12) 1,000 mcg/mL injection solution RxNorm: 253843 Milliliter 03/03/2015 No longer Active cyanocobalamin (vit B-12) 1,000 mcg/mL injection solution RxNorm: 623036 Milliliter 02/18/2015 No longer Active cyanocobalamin (vit B-12) 1,000 mcg/mL injection solution RxNorm: 368489 Milliliter 02/04/2015 No longer Active cyanocobalamin (vit B-12) 1,000 mcg/mL injection solution RxNorm: 753399 Milliliter 01/22/2015 No longer Active cyanocobalamin (vit B-12) 1,000 mcg/mL injection solution RxNorm: 117039 Milliliter 01/08/2015 No longer Active cyanocobalamin (vit B-12) 1,000 mcg/mL injection solution RxNorm: 492893 Milliliter 12/25/2014 No longer Active cyanocobalamin (vit B-12) 1,000 mcg/mL injection solution RxNorm: 248570 Milliliter 12/10/2014 No longer Active cyanocobalamin (vit B-12) 1,000 mcg/mL injection solution RxNorm: 292366 Milliliter 11/26/2014 No longer Active cyanocobalamin (vit B-12) 1,000 mcg/mL injection kit RxNorm: 573918 Milliliter 11/12/2014 No longer Active cyanocobalamin (vit B-12) 1,000 mcg/mL injection solution RxNorm: 807438 Milliliter 10/28/2014 No longer Active Immunizations Vaccine [...] specified organisms ICD-10: J20.8 ICD-9: 466.0 08/15/2018 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 ICD-9: 281.0 08/15/2018 Cough ICD-10: R05 ICD-9: 786.2 08/15/2018 [...] Code Item Item Code Result Date Microalbumin Fcm502 MicroAlb <0.7 mg/dL 09/11/2018 Tsh Ord6 TSH (3rd IS) 6.48 uIU/mL 09/10/2018 Free T4 Mmw123 FREE T4 0.89 ng/dL 09/10/2018 Lipid Ord30 CHOL 177 mg/dL 09/10/2018 Lipid Ord30 HDL 64.0 mg/dl 09/10/2018 Lipid Ord30 TRIG 126 mg/dL 09/10/2018 Lipid Ord30 LDL 88 mg/dL 09/10/2018 Lipid Ord30 C/HDL 2.8 Ratio 09/10/2018 Comp Metabolic Yrk145 NA 139 mEq/L 09/10/2018 Comp Metabolic Mag568 K 4.8 mEq/L 09/10/2018 Comp Metabolic Byt319 CL 103 mEq/L 09/10/2018 Comp Metabolic Zsm649 CO2 25.0 mEq/L 09/10/2018 Comp Metabolic Ebb470 ANION GAP 16 09/10/2018 Comp Metabolic Suz599 GLUCOSE 104 mg/dL 09/10/2018 Comp Metabolic Pin482 Creat 1.0 mg/dL 09/10/2018 Comp Metabolic Uwm338 eGFR 54 ml/min/1.73m2 09/10/2018 Comp Metabolic Rkg880 BUN 25 mg/dL 09/10/2018 Comp Metabolic Akg452 B/C Ratio 24.3 Ratio 09/10/2018 Comp Metabolic Lrd709 CALCIUM 9.3 mg/dL 09/10/2018 Comp Metabolic Qnm141 ALK PHOS 71 U/L 09/10/2018 Comp Metabolic Orz149 AST(SGOT) 25 U/L 09/10/2018 Comp Metabolic Xfy061 ALT(SGPT) 28 U/L 09/10/2018 Comp Metabolic Pah908 BILI T 0.7 mg/dL 09/10/2018 Comp Metabolic Xus967 ALBUMIN 4.2 g/dL 09/10/2018 Comp Metabolic Lxs193 TPRO 6.5 g/dL 09/10/2018 Comp Metabolic Tev777 GLOB 2.3 g/dL 09/10/2018 Comp Metabolic Aaz758 A/G Ratio 1.8 Ratio 09/10/2018 Comp Metabolic Zwe945 Osmo 282 mOsmo 09/10/2018 Cbc With Differential [...] 27.7 pg 09/10/2018 Cbc With Differential Ord2 [place]% 8.8 % 09/10/2018 Cbc With Differential Ord2 [...] 2.24 K/ul 09/10/2018 Cbc With Differential Ord2 [place] ABS# 0.6 K/ul 09/10/2018 Cbc With Differential Ord2 Eos ABS# 0.2 K/ul 09/10/2018 Cbc With Differential Ord2 Baso ABS# 0.1 K/ul 09/10/2018 %Hba1C Cto637 % HbA1c 54196- 6 6.0 % 09/10/2018 %Hba1C Jmz726 Gluc Ave 126 mg/dL 09/10/2018 Test(s) Not Perfromed [id number] Test(s) Not Performed Test(s) Not Performed. See Below: 09/10/2018 Test(s) Not Perfromed [id number] TEST NAME Microalbumin 09/10/2018 Test(s) Not Perfromed [id number] Rejection Reason Patient Unable to Void 09/10/2018 Test(s) Not Perfromed [id number] COMMENT Patient to deliver sample to the lab at a later date 09/10/2018 Test(s) Not Perfromed [id number] Insurance Defense Paralegal Favio Mulligan 09/10/2018 Lipid Ord30 CHOL 174 mg/dL 05/29/2018 Lipid Ord30 HDL 49.0 mg/dl 05/29/2018 Lipid Ord30 TRIG 200 mg/dL 05/29/2018 Lipid Ord30 LDL 85 mg/dL 05/29/2018 Lipid Ord30 C/HDL 3.6 Ratio 05/29/2018 Tsh Ord6 TSH (3rd IS) 3.20 uIU/mL 02/26/2018 Free T4 Wxm914 FREE T4 0.99 ng/dL 02/26/2018 Cbc With [...] 28.5 pg 02/26/2018 Cbc With Differential Ord2 [place]% 10.3 % 02/26/2018 Cbc With Differential Ord2 [...] 1.80 K/ul 02/26/2018 Cbc With Differential Ord2 [place] ABS# 0.7 K/ul 02/26/2018 Cbc With Differential Ord2 Eos ABS# 0.2 K/ul 02/26/2018 Cbc With Differential Ord2 Baso ABS# 0.0 K/ul 02/26/2018 B12 Nih557 B12 889.00 pg/ml 02/26/2018 Digoxin Ord9 DIGOXIN 0.7 NG/ML 11/23/2017 Comp Metabolic Xrb434 NA 142 mEq/L 11/23/2017 Comp Metabolic Dde285 K 4.9 mEq/L 11/23/2017 Comp Metabolic Hcv770 CL 112 mEq/L 11/23/2017 Comp Metabolic Ejp667 CO2 18.0 mEq/L 11/23/2017 Comp Metabolic Oof898 ANION GAP 17 11/23/2017 Comp Metabolic Ybl195 GLUCOSE 123 mg/dL 11/23/2017 Comp Metabolic Ibx253 Creat 1.0 mg/dL 11/23/2017 Comp Metabolic Fqd874 eGFR 59 ml/min/1.73m2 11/23/2017 Comp Metabolic Lsz606 BUN 24 mg/dL 11/23/2017 Comp Metabolic Mym582 B/C Ratio 25.0 Ratio 11/23/2017 Comp Metabolic Xll827 CALCIUM 9.4 mg/dL 11/23/2017 Comp Metabolic Uov948 ALK PHOS 56 U/L 11/23/2017 Comp Metabolic Tld774 AST(SGOT) 17 U/L 11/23/2017 Comp Metabolic Zyr115 ALT(SGPT) 16 U/L 11/23/2017 Comp Metabolic Okh220 BILI T 0.7 mg/dL 11/23/2017 Comp Metabolic Fzw899 ALBUMIN 3.8 g/dL 11/23/2017 Comp Metabolic Oaf971 TPRO 6.2 g/dL 11/23/2017 Comp Metabolic Pyr528 GLOB 2.4 g/dL 11/23/2017 Comp Metabolic Hsu432 A/G Ratio 1.6 Ratio 11/23/2017 Comp Metabolic Ysa188 Osmo 289 mOsmo 11/23/2017 Free T4 Xhk608 FREE T4 1.04 ng/dL 11/23/2017 %Hba1C Slt291 % HbA1c 04882- 6 6.4 % 11/23/2017 %Hba1C Pui768 Gluc Ave 137 mg/dL 11/23/2017 Lipid Ord30 CHOL 179 mg/dL 11/23/2017 Lipid Ord30 HDL 51.0 mg/dl 11/23/2017 Lipid Ord30 TRIG 134 mg/dL 11/23/2017 Lipid Ord30 LDL 101 mg/dL 11/23/2017 Lipid Ord30 C/HDL 3.5 Ratio 11/23/2017 Tsh Ord6 TSH (3rd IS) 1.00 uIU/mL 11/23/2017 Microalbumin Blo847 MicroAlb <0.7 mg/dL 11/23/2017 Comp Metabolic Vel754 NA 141 mEq/L 01/23/2017 Comp Metabolic Jst651 K 4.5 mEq/L 01/23/2017 Comp Metabolic Yhg823 CL 107 mEq/L 01/23/2017 Comp Metabolic Gbm116 CO2 21.0 mEq/L 01/23/2017 Comp Metabolic Btv569 ANION GAP 18 01/23/2017 Comp Metabolic Opr642 GLUCOSE 138 mg/dL 01/23/2017 Comp Metabolic Wem092 Creat 1.0 mg/dL 01/23/2017 Comp Metabolic Lnl061 eGFR 56 ml/min/1.73m2 01/23/2017 Comp Metabolic Osd782 BUN 26 mg/dL 01/23/2017 Comp Metabolic Tom783 B/C Ratio 25.7 Ratio 01/23/2017 Comp Metabolic Wey580 CALCIUM 9.0 mg/dL 01/23/2017 Comp Metabolic Rms392 ALK PHOS 37 U/L 01/23/2017 Comp Metabolic Cmd550 AST(SGOT) 20 U/L 01/23/2017 Comp Metabolic Enm822 ALT(SGPT) 25 U/L 01/23/2017 Comp Metabolic Bvb843 BILI T 0.9 mg/dL 01/23/2017 Comp Metabolic Cwj907 ALBUMIN 3.8 g/dL 01/23/2017 Comp Metabolic Yef690 TPRO 6.5 g/dL 01/23/2017 Comp Metabolic Axp766 GLOB 2.7 g/dL 01/23/2017 Comp Metabolic Dny759 A/G Ratio 1.4 Ratio 01/23/2017 Comp Metabolic Day749 Osmo 288 mOsmo 01/23/2017 Free T4 Oqy824 FREE T4 1.05 ng/dL 01/23/2017 %Hba1C Rer003 % HbA1c 07403- 6 6.1 % 01/23/2017 %Hba1C Axe604 Gluc Ave 128 mg/dL 01/23/2017 Tsh Ord6 hTSH II 1.68 uIU/mL 01/23/2017 Culture Urine [id number] URINE CULTURE SEE NOTES 11/10/2016 Culture Urine [id number] Continued Results 11/10/2016 Urine Culture Ucult Complete [...] Ord15 CALCIUM 9.3 mg/dL 09/29/2016 Free T4 Eaj062 FREE T4 0.99 ng/dL 09/07/2016 Cbc With [...] 30.0 pg 09/07/2016 Cbc With Differential Ord2 [place]% 9.8 % 09/07/2016 Cbc With Differential Ord2 [...] 1.75 K/ul 09/07/2016 Cbc With Differential Ord2 [place] ABS# 0.6 K/ul 09/07/2016 Cbc With Differential Ord2 Eos ABS# 0.1 K/ul 09/07/2016 Cbc With Differential Ord2 Baso ABS# 0.0 K/ul 09/07/2016 Tsh Ord6 hTSH II 1.41 uIU/mL 09/07/2016 Culture Urine [id number] URINE CULTURE SEE NOTES 06/27/2016 Lipid Ord30 CHOL 196 mg/dL 06/22/2016 Lipid Ord30 HDL 63.0 mg/dl 06/22/2016 Lipid Ord30 TRIG 154 mg/dL 06/22/2016 Lipid Ord30 LDL 102 mg/dL 06/22/2016 Lipid Ord30 C/HDL 3.1 Ratio 06/22/2016 Hepatic Zbi922 ALBUMIN 4.2 g/dL 06/22/2016 Hepatic Eov464 TPRO 7.0 g/dL 06/22/2016 Hepatic Fhq927 GLOB 2.8 g/dL 06/22/2016 Hepatic Evk280 A/G Ratio 1.5 Ratio 06/22/2016 Hepatic Jvn696 ALK PHOS 54 U/L 06/22/2016 Hepatic Clq850 ALT(SGPT) 30 U/L 06/22/2016 Hepatic Xbr570 AST(SGOT) 24 U/L 06/22/2016 Hepatic Sjt918 BILI T 1.1 mg/dL 06/22/2016 Hepatic Tea777 BILI D 0.2 mg/dL 06/22/2016 Hepatic Xco763 BILI I 0.9 mg/dL 06/22/2016 Comp Metabolic Frn242 NA 139 mEq/L 06/14/2016 Comp Metabolic Drf736 K 4.6 mEq/L 06/14/2016 Comp Metabolic Dfn056 CL 108 mEq/L 06/14/2016 Comp Metabolic Ruz175 CO2 22.0 mEq/L 06/14/2016 Comp Metabolic Oty019 ANION GAP 14 06/14/2016 Comp Metabolic Nkd021 GLUCOSE 114 mg/dL 06/14/2016 Comp Metabolic Ryl729 Creat 1.2 mg/dL 06/14/2016 Comp Metabolic Bdc457 eGFR 48 ml/min/1.73m2 06/14/2016 Comp Metabolic Bdu073 BUN 24 mg/dL 06/14/2016 Comp Metabolic Dxz496 B/C Ratio 20.9 Ratio 06/14/2016 Comp Metabolic Zaz883 CALCIUM 9.9 mg/dL 06/14/2016 Comp Metabolic Wny599 ALK PHOS 47 U/L 06/14/2016 Comp Metabolic Ywr033 AST(SGOT) 28 U/L 06/14/2016 Comp Metabolic Oxy979 ALT(SGPT) 32 U/L 06/14/2016 Comp Metabolic Inj304 BILI T 0.9 mg/dL 06/14/2016 Comp Metabolic Lyj102 ALBUMIN 4.1 g/dL 06/14/2016 Comp Metabolic Zbr997 TPRO 6.9 g/dL 06/14/2016 Comp Metabolic Wle870 GLOB 2.8 g/dL 06/14/2016 Comp Metabolic Jte562 A/G Ratio 1.5 Ratio 06/14/2016 Comp Metabolic Tzw683 Osmo 282 mOsmo 06/14/2016 Tsh Ord6 hTSH II 1.26 uIU/mL 06/14/2016 Free T4 Lpn665 FREE T4 1.09 ng/dL 06/14/2016 Tsh Ord6 hTSH II 0.28 uIU/mL 02/02/2016 Digoxin Ord9 DIGOXIN 0.7 NG/ML 02/02/2016 Free T4 Paq868 FREE T4 1.23 ng/dL 02/02/2016 Hepatic Hcq744 ALBUMIN 4.0 g/dL 02/02/2016 Hepatic Eci870 TPRO 7.0 g/dL 02/02/2016 Hepatic Rzp526 GLOB 3.0 g/dL 02/02/2016 Hepatic Zbx850 A/G Ratio 1.3 Ratio 02/02/2016 Hepatic Zqw577 ALK PHOS 57 U/L 02/02/2016 Hepatic Qvs117 ALT(SGPT) 62 U/L 02/02/2016 Hepatic Cvy379 AST(SGOT) 54 U/L 02/02/2016 Hepatic Odd157 BILI T 0.8 mg/dL 02/02/2016 Hepatic Hys127 BILI D 0.2 mg/dL 02/02/2016 Hepatic Lvg526 BILI I 0.6 mg/dL 02/02/2016 Urine Culture Ucult Preliminary No Growth Day 1 11/25/2015 Urine Culture Ucult Complete No Growth Day 2 11/25/2015 Hepatic Inv448 ALBUMIN 3.9 g/dL 11/11/2015 Hepatic Pes525 TPRO 7.0 g/dL 11/11/2015 Hepatic Nfr228 GLOB 3.1 g/dL 11/11/2015 Hepatic Tco102 A/G Ratio 1.3 Ratio 11/11/2015 Hepatic Hch645 ALK PHOS 63 U/L 11/11/2015 Hepatic Dng029 ALT(SGPT) 107 U/L 11/11/2015 Hepatic Pmb406 AST(SGOT) 101 U/L 11/11/2015 Hepatic Erd600 BILI T 0.6 mg/dL 11/11/2015 Hepatic Pjt363 BILI D 0.1 mg/dL 11/11/2015 Hepatic Ovd496 BILI I 0.5 mg/dL 11/11/2015 Comp Metabolic Fbj207 NA 138 mEq/L 10/29/2015 Comp Metabolic Jlv559 K 5.0 mEq/L 10/29/2015 Comp Metabolic Hhr897 CL 105 mEq/L 10/29/2015 Comp Metabolic Phl016 CO2 23.0 mEq/L 10/29/2015 Comp Metabolic Jgr686 ANION GAP 15 10/29/2015 Comp Metabolic Ebo431 GLUCOSE 105 mg/dL 10/29/2015 Comp Metabolic Ubz890 Creat 1.0 mg/dL 10/29/2015 Comp Metabolic Lvk095 eGFR 55 ml/min/1.73m2 10/29/2015 Comp Metabolic Ngj680 BUN 20 mg/dL 10/29/2015 Comp Metabolic Hqy705 B/C Ratio 19.4 Ratio 10/29/2015 Comp Metabolic Qqm655 CALCIUM 8.8 mg/dL 10/29/2015 Comp Metabolic Rzg816 ALK PHOS 56 U/L 10/29/2015 Comp Metabolic Ehq192 AST(SGOT) 66 U/L 10/29/2015 Comp Metabolic Zrc530 ALT(SGPT) 78 U/L 10/29/2015 Comp Metabolic Guk380 BILI T 0.7 mg/dL 10/29/2015 Comp Metabolic Hlo789 ALBUMIN 3.6 g/dL 10/29/2015 Comp Metabolic Aes691 TPRO 6.6 g/dL 10/29/2015 Comp Metabolic Xpu561 GLOB 3.0 g/dL 10/29/2015 Comp Metabolic Wuw780 A/G Ratio 1.2 Ratio 10/29/2015 Comp Metabolic Gnw772 Osmo 279 mOsmo 10/29/2015 Comp Metabolic Vpc135 NA 136 mEq/L 09/03/2015 Comp Metabolic Cik224 K 4.4 mEq/L 09/03/2015 Comp Metabolic Vcz649 CL 103 mEq/L 09/03/2015 Comp Metabolic Dme972 CO2 24.0 mEq/L 09/03/2015 Comp Metabolic Rls278 ANION GAP 13 09/03/2015 Comp Metabolic Umo708 GLUCOSE 87 mg/dL 09/03/2015 Comp Metabolic Dto642 Creat 1.1 mg/dL 09/03/2015 Comp Metabolic Gpm866 eGFR 53 ml/min/1.73m2 09/03/2015 Comp Metabolic Xma323 BUN 17 mg/dL 09/03/2015 Comp Metabolic Buz725 B/C Ratio 16.2 Ratio 09/03/2015 Comp Metabolic Wpe928 CALCIUM 9.0 mg/dL 09/03/2015 Comp Metabolic Yxz391 ALK PHOS 55 U/L 09/03/2015 Comp Metabolic Fxd595 AST(SGOT) 83 U/L 09/03/2015 Comp Metabolic Lmm199 ALT(SGPT) 126 U/L 09/03/2015 Comp Metabolic Bqq326 BILI T 0.9 mg/dL 09/03/2015 Comp Metabolic Fut168 ALBUMIN 3.9 g/dL 09/03/2015 Comp Metabolic Uyg238 TPRO 6.8 g/dL 09/03/2015 Comp Metabolic Kwx208 GLOB 2.9 g/dL 09/03/2015 Comp Metabolic Ffm047 A/G Ratio 1.4 Ratio 09/03/2015 Comp Metabolic Ruw782 Osmo 273 mOsmo 09/03/2015 Total T3 Ord42 TT3 0.6 ng/ml 07/09/2015 Tsh Ord6 hTSH II 1.62 uIU/mL 07/09/2015 Total T3 Ord42 TT3 0.5 ng/ml 04/02/2015 Free T4 Eas515 FREE T4 1.23 ng/dL 04/02/2015 Tsh Ord6 [...] Procedure Codes Date THER/PROPH/DIAG INJ SC/IM CPT-4: 38867 09/27/2018 THER/PROPH/DIAG INJ SC/IM CPT-4: 23436 09/11/2018 THER/PROPH/DIAG INJ SC/IM CPT-4: 44108 08/29/2018 THER/PROPH/DIAG INJ SC/IM CPT-4: 45211 08/15/2018 TRIAMCINOLONE ACET INJ NOS CPT-4: J3301 08/15/2018 THER/PROPH/DIAG INJ SC/IM CPT-4: 62010 08/01/2018 VITAMIN B12 INJECTION CPT- 4: J3420 08/01/2018 THER/PROPH/DIAG INJ SC/IM CPT-4: 53616 07/19/2018 THER/PROPH/DIAG INJ SC/IM CPT-4: 51349 07/04/2018 THER/PROPH/DIAG INJ SC/IM CPT-4: 97188 06/20/2018 THER/PROPH/DIAG INJ SC/IM CPT-4: 88338 06/06/2018 VITAMIN B12 INJECTION CPT- 4: J3420 06/06/2018 THER/PROPH/DIAG INJ SC/IM CPT-4: 62075 05/24/2018 THER/PROPH/DIAG INJ SC/IM CPT-4: 12777 05/09/2018 THER/PROPH/DIAG INJ SC/IM CPT-4: 38035 04/26/2018 VITAMIN B12 INJECTION CPT- 4: J3420 04/26/2018 THER/PROPH/DIAG INJ SC/IM CPT-4: 29417 04/12/2018 THER/PROPH/DIAG INJ SC/IM CPT-4: 96447 03/30/2018 THER/PROPH/DIAG INJ SC/IM CPT-4: 96534 03/16/2018 VITAMIN B12 INJECTION CPT- 4: J3420 03/16/2018 ADMIN INFLUENZA VIRUS VAC CPT-4: G0008 03/16/2018 FLU VACC PRSV FREE INC ANTIG Formatting Model/CDA Sections, Assigned to/Nga Ojeda CPT-4: 15405Kdmqpkz 03/16/2018 THER/PROPH/DIAG INJ SC/IM CPT-4: 33701 03/02/2018 THER/PROPH/DIAG INJ SC/IM CPT-4: 04899 02/08/2018 THER/PROPH/DIAG INJ SC/IM CPT-4: 92768 01/24/2018 THER/PROPH/DIAG INJ SC/IM CPT-4: 01256 01/10/2018 THER/PROPH/DIAG INJ SC/IM CPT-4: 24219 12/27/2017 VITAMIN B12 INJECTION CPT- 4: J3420 12/27/2017 THER/PROPH/DIAG INJ SC/IM CPT-4: 23873 12/12/2017 THER/PROPH/DIAG INJ SC/IM CPT-4: 19052 12/01/2017 VITAMIN B12 INJECTION CPT- 4: J3420 12/01/2017 THER/PROPH/DIAG INJ SC/IM CPT-4: 13091 11/17/2017 THER/PROPH/DIAG INJ SC/IM CPT-4: 22447 11/02/2017 THER/PROPH/DIAG INJ SC/IM CPT-4: 48286 10/20/2017 THER/PROPH/DIAG INJ SC/IM CPT-4: 66084 10/06/2017 THER/PROPH/DIAG INJ SC/IM CPT-4: 97143 09/21/2017 TRIAMCINOLONE ACET INJ NOS CPT-4: J3301 09/15/2017 THER/PROPH/DIAG INJ SC/IM CPT-4: 89184 09/07/2017 THER/PROPH/DIAG INJ SC/IM CPT-4: 87990 08/24/2017 THER/PROPH/DIAG INJ SC/IM CPT-4: 63753 07/06/2017 THER/PROPH/DIAG INJ SC/IM CPT-4: 87019 06/20/2017 TRIAMCINOLONE ACET INJ NOS CPT-4: J3301 06/20/2017 PPPS, SUBSEQ VISIT CPT- 4: G0439 06/05/2017 THER/PROPH/DIAG INJ SC/IM CPT-4: 29514 06/05/2017 THER/PROPH/DIAG INJ SC/IM CPT-4: 26778 05/25/2017 VITAMIN B12 INJECTION CPT- 4: J3420 05/25/2017 THER/PROPH/DIAG INJ SC/IM CPT-4: 25011 05/16/2017 THER/PROPH/DIAG INJ SC/IM CPT-4: 77866 05/01/2017 THER/PROPH/DIAG INJ SC/IM CPT-4: 11056 04/18/2017 THER/PROPH/DIAG INJ SC/IM CPT-4: 15565 04/06/2017 ADMIN INFLUENZA VIRUS VAC CPT-4: G0008 03/22/2017 FLU VACC PRSV FREE INC ANTIG CPT-4: 37126 03/22/2017 THER/PROPH/DIAG INJ SC/IM CPT-4: 19450 03/09/2017 THER/PROPH/DIAG INJ SC/IM CPT-4: 44024 02/23/2017 THER/PROPH/DIAG INJ SC/IM CPT-4: 25502 02/09/2017 THER/PROPH/DIAG INJ SC/IM CPT-4: 25779 01/23/2017 THER/PROPH/DIAG INJ SC/IM CPT-4: 45871 01/10/2017 THER/PROPH/DIAG INJ SC/IM CPT-4: 90063 12/28/2016 THER/PROPH/DIAG INJ SC/IM CPT-4: 66814 12/14/2016 THER/PROPH/DIAG INJ SC/IM CPT-4: 23851 11/24/2016 URINALYSIS NONAUTO W/O SCOPE CPT-4: 34275 11/07/2016 THER/PROPH/DIAG INJ SC/IM CPT-4: 20523 11/07/2016 THER/PROPH/DIAG INJ SC/IM CPT-4: 62229 10/24/2016 THER/PROPH/DIAG INJ SC/IM CPT-4: 17069 09/29/2016 THER/PROPH/DIAG INJ SC/IM CPT-4: 06402 08/29/2016 THER/PROPH/DIAG INJ SC/IM CPT-4: 89745 08/04/2016 THER/PROPH/DIAG INJ SC/IM CPT-4: 22904 07/21/2016 THER/PROPH/DIAG INJ SC/IM CPT-4: 02368 07/05/2016 THER/PROPH/DIAG INJ SC/IM CPT-4: 95831 06/22/2016 URINALYSIS NONAUTO W/O SCOPE CPT-4: 24615 06/22/2016 THER/PROPH/DIAG INJ SC/IM CPT-4: 30999 06/09/2016 PPPS, SUBSEQ VISIT CPT- 4: G0439 05/30/2016 ADMIN PNEUMOCOCCAL VACCINE SNOMED CT: [id number] CPT-4: G0009 05/25/2016 Pneumococcal Polysaccharide Vaccine, 23-Valent, Ad CPT-4: 36616 05/25/2016 THER/PROPH/DIAG INJ SC/IM CPT-4: 38719 05/25/2016 THER/PROPH/DIAG INJ SC/IM CPT-4: 07361 05/10/2016 TRIAMCINOLONE ACET INJ NOS CPT-4: J3301 04/26/2016 VITAMIN B12 INJECTION CPT- 4: J3420 04/26/2016 THER/PROPH/DIAG INJ SC/IM CPT-4: 00584 04/11/2016 THER/PROPH/DIAG INJ SC/IM CPT-4: 23599 03/31/2016 ADMIN INFLUENZA VIRUS VAC CPT-4: G0008 03/15/2016 FLU VACC 4 STEPHANIE 3 YRS PLUS IM SNOMED CT: 13508498 CPT-4: 22286 03/15/2016 THER/PROPH/DIAG INJ SC/IM CPT-4: 03177 02/25/2016 THER/PROPH/DIAG INJ SC/IM CPT-4: 33624 02/02/2016 THER/PROPH/DIAG INJ SC/IM CPT-4: 60831 01/18/2016 VITAMIN B12 INJECTION CPT- 4: J3420 12/29/2015 THER/PROPH/DIAG INJ SC/IM CPT-4: 29378 12/29/2015 THER/PROPH/DIAG INJ SC/IM CPT-4: 13391 12/08/2015 THER/PROPH/DIAG INJ SC/IM CPT-4: 39620 11/23/2015 URINALYSIS NONAUTO W/O SCOPE CPT-4: 27823 11/23/2015 THER/PROPH/DIAG INJ SC/IM CPT-4: 99495 11/11/2015 THER/PROPH/DIAG INJ SC/IM CPT-4: 65603 10/29/2015 THER/PROPH/DIAG INJ SC/IM CPT-4: 92498 10/12/2015 VITAMIN B12 INJECTION CPT- 4: J3420 10/12/2015 THER/PROPH/DIAG INJ SC/IM CPT-4: 36471 09/29/2015 THER/PROPH/DIAG INJ SC/IM CPT-4: 68533 09/17/2015 THER/PROPH/DIAG INJ SC/IM CPT-4: 86888 09/03/2015 THER/PROPH/DIAG INJ SC/IM CPT-4: 65152 08/17/2015 THER/PROPH/DIAG INJ SC/IM CPT-4: 17450 08/06/2015 THER/PROPH/DIAG INJ SC/IM CPT-4: 43428 07/22/2015 THER/PROPH/DIAG INJ SC/IM CPT-4: 66069 07/08/2015 THER/PROPH/DIAG INJ SC/IM CPT-4: 00793 06/23/2015 THER/PROPH/DIAG INJ SC/IM CPT-4: 97090 06/08/2015 THER/PROPH/DIAG INJ SC/IM CPT-4: 00884 05/27/2015 DESTRUCT PREMALG LESION CPT-4: 48864 05/19/2015 DESTRUCT PREMALG LES 2-14 CPT-4: 79315 05/19/2015 THER/PROPH/DIAG INJ SC/IM CPT-4: 55414 05/12/2015 VITAMIN B12 INJECTION CPT- 4: J3420 05/12/2015 THER/PROPH/DIAG INJ SC/IM CPT-4: 04160 04/30/2015 VITAMIN B12 INJECTION CPT- 4: J3420 04/30/2015 THER/PROPH/DIAG INJ SC/IM CPT-4: 08682 04/16/2015 THER/PROPH/DIAG INJ SC/IM CPT-4: 70336 04/02/2015 VITAMIN B12 INJECTION CPT- 4: J3420 04/02/2015 THER/PROPH/DIAG INJ SC/IM CPT-4: 21167 03/18/2015 THER/PROPH/DIAG INJ SC/IM CPT-4: 99242 03/03/2015 THER/PROPH/DIAG INJ SC/IM CPT-4: 94324 02/18/2015 THER/PROPH/DIAG INJ SC/IM CPT-4: 56463 02/04/2015 VITAMIN B12 INJECTION CPT- 4: J3420 02/04/2015 THER/PROPH/DIAG INJ SC/IM CPT-4: 33833 01/22/2015 THER/PROPH/DIAG INJ SC/IM CPT-4: 90830 01/08/2015 VITAMIN B12 INJECTION CPT- 4: J3420 01/08/2015 THER/PROPH/DIAG INJ SC/IM CPT-4: 08830 12/25/2014 VITAMIN B12 INJECTION CPT- 4: J3420 12/25/2014 THER/PROPH/DIAG INJ SC/IM CPT-4: 61294 12/10/2014 VITAMIN B12 INJECTION CPT- 4: J3420 12/10/2014 THER/PROPH/DIAG INJ SC/IM CPT-4: 83297 11/26/2014 VITAMIN B12 INJECTION CPT- 4: J3420 11/26/2014 THER/PROPH/DIAG INJ SC/IM CPT-4: 07911 11/12/2014 VITAMIN B12 INJECTION CPT- 4: J3420 11/12/2014 THER/PROPH/DIAG INJ SC/IM CPT-4: 04549 10/28/2014 Vital Signs Date Vital 09/05/2018 Blood Pressure 1: 122/70 Code: 8480-6 BMI: 27.1 Code: 66779-7 Heart Rate 1: 90 bpm Height: 5'6" SpO2: 97% Weight: 168 lbs 08/15/2018 Blood Pressure 1: 142/76 Code: 8480-6 BMI: 27.4 Code: 77085-5 Heart Rate 1: 74 bpm Height: 5'6" SpO2: 95% Temperature: 36.7 (C) / 98.1 (F) Weight: 170 lbs 05/03/2018 Blood Pressure 1: 140/70 Code: 8480-6 BMI: 26.0 Code: 27003-8 Heart Rate 1: 70 bpm Height: 5'6" SpO2: 94% Weight: 161 lbs 04/26/2018 Height: 5'6" 02/26/2018 Blood Pressure 1: 130/72 Code: 8480-6 BMI: 27.9 Code: 06158-0 Heart Rate 1: 72 bpm Height: 5'6" SpO2: 93% Weight: 173 lbs 12/12/2017 Blood Pressure 1: 126/74 Code: 8480-6 BMI: 27.4 Code: 12521-7 Heart Rate 1: 83 bpm Height: 5'6" SpO2: 98% Weight: 170 lbs 12/04/2017 Blood Pressure 1: 104/68 Code: 8480-6 BMI: 28.2 Code: 76065-7 Heart Rate 1: 85 bpm Height: 5'6" SpO2: 95% Weight: 175 lbs 11/20/2017 Blood Pressure 1: 130/68 Code: 8480-6 BMI: 28.4 Code: 65749-6 Heart Rate 1: 80 bpm Height: 5'6" SpO2: 99% Weight: 176 lbs 11/02/2017 Height: 5'6" 09/15/2017 Blood Pressure 1: 134/74 Code: 8480-6 BMI: 28.4 Code: 59745-8 Heart Rate 1: 88 bpm Height: 5'6" SpO2: 98% Weight: 176 lbs 09/07/2017 Blood Pressure 1: 124/64 Code: 8480-6 Heart Rate 1: 90 bpm Height: SpO2: 97% Weight: 08/30/2017 Blood Pressure 1: 140/76 Code: 8480-6 BMI: 28.4 Code: 96053-6 Heart Rate 1: 90 bpm Height: 5'6" SpO2: 94% Weight: 176 lbs 07/06/2017 Blood Pressure 1: 132/66 Code: 8480-6 BMI: 29.4 Code: 71817-9 Heart Rate 1: 85 bpm Height: 5'6" SpO2: 97% Weight: 182 lbs 06/20/2017 Blood Pressure 1: 134/86 Code: 8480-6 Heart Rate 1: 90 bpm Height: SpO2: 98% Weight: 06/05/2017 BMI: 29.1 Code: 65890-3 Height: 5'6" Weight: 180 lbs 05/25/2017 Blood Pressure 1: 126/76 Code: 8480-6 BMI: 29.1 Code: 80113-9 Heart Rate 1: 77 bpm Height: 5'6" SpO2: 97% Weight: 180 lbs 03/23/2017 Blood Pressure 1: 142/84 Code: 8480-6 BMI: 29.1 Code: 62553-8 Heart Rate 1: 91 bpm Height: 5'6" SpO2: 97% Weight: 180 lbs 01/23/2017 Blood Pressure 1: 150/90 Code: 8480-6 BMI: 29.9 Code: 28242-1 Heart Rate 1: 81 bpm Height: 5'6" SpO2: 97% Weight: 185 lbs 11/02/2016 Blood Pressure 1: 148/78 Code: 8480-6 BMI: 29.7 Code: 80755-8 Heart Rate 1: 87 bpm Height: 5'6" SpO2: 97% Weight: 184 lbs 09/29/2016 Blood Pressure 1: 128/78 Code: 8480-6 BMI: 29.7 Code: 04710-6 Heart Rate 1: 78 bpm Height: 5'6" SpO2: 98% Weight: 184 lbs 07/26/2016 Blood Pressure 1: 138/72 Code: 8480-6 BMI: 30.0 Code: 73938-9 Heart Rate 1: 85 bpm Height: 5'6" SpO2: 97% Weight: 186 lbs 05/30/2016 Blood Pressure 1: 132/76 Code: 8480-6 BMI: 30.0 Code: 78492-4 Heart Rate 1: 80 bpm Height: 5'6" SpO2: 98% Waist Measure (cm): 99 cm Weight: 186 lbs 05/25/2016 Blood Pressure 1: 132/76 Code: 8480-6 BMI: 30.0 Code: 49171-9 Heart Rate 1: 80 bpm Height: 5'6" SpO2: 96% Weight: 186 lbs 02/25/2016 Blood Pressure 1: 110/64 Code: 8480-6 Heart Rate 1: 82 bpm Height: SpO2: 96% Weight: 01/25/2016 Blood Pressure 1: 118/70 Code: 8480-6 BMI: 30.0 Code: 42158-7 Heart Rate 1: 78 bpm Height: 5'6" SpO2: 97% Weight: 186 lbs 11/11/2015 Blood Pressure 1: 128/82 Code: 8480-6 BMI: 29.2 Code: 46359-1 Heart Rate 1: 86 bpm Height: 5'6" SpO2: 96% Temperature: 36.4 (C) / 97.6 (F) Weight: 181 lbs 10/12/2015 Blood Pressure 1: 118/70 Code: 8480-6 BMI: 29.2 Code: 51819-8 Heart Rate 1: 81 bpm Height: 5'6" SpO2: 95% Weight: 181 lbs 09/03/2015 Blood Pressure 1: 138/78 Code: 8480-6 BMI: 29.9 Code: 19911-8 Heart Rate 1: 88 bpm Height: 5'6" SpO2: 97% Weight: 185 lbs 05/19/2015 Blood Pressure 1: 146/78 Code: 8480-6 BMI: 30.0 Code: 19394-2 Heart Rate 1: 66 bpm Height: 5'6" SpO2: 97% Weight: 186 lbs 05/12/2015 Blood Pressure 1: 120/70 Code: 8480-6 BMI: 29.9 Code: 37385-4 Heart Rate 1: 89 bpm Height: 5'6" SpO2: 95% Weight: 185 lbs 01/13/2015 Blood Pressure 1: 140/90 Code: 8480-6 BMI: 30.3 Code: 59935-1 Heart Rate 1: 84 bpm Height: 5'6" SpO2: 95% Weight: 188 lbs 12/16/2014 Blood Pressure 1: 140/82 Code: 8480-6 BMI: 29.5 Code: 29044-8 Heart Rate 1: 86 bpm Height: 5'6" [...] data Encounters Encounter Performer Location Codes Date [id number] EST. PATIENT, LEVEL IV Diagnosis: Essential (primary) hypertension[ICD10: I10] Diagnosis: Type 2 diabetes mellitus without complications[ICD10: E11.9] Diagnosis: Atrophy of thyroid (acquired)[ICD10: E03.4] Diagnosis: Other vitamin B12 deficiency anemias[ICD10: D51.8] Yarely Vega MD, [facility] CPT-4: 96229 09/05/2018 [id number] EST. PATIENT, LEVEL IV Diagnosis: Acute bronchitis due to other specified organisms[ICD10: J20.8] Diagnosis: Cough[ICD10: R05] Diagnosis: 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 factor deficiency[ICD10: D51.0] Brianna Vega MD, [facility] CPT-4: 15034 08/15/2018 ([id number]) 47251 EST. PATIENT, LEVEL IV Diagnosis: Essential (primary) hypertension[ICD10: I10] Diagnosis: Type 2 diabetes mellitus without complications[ICD10: E11.9] Yarely Vega MD, [facility] CPT-4: 03016 05/03/2018 ([id number]) 24020 EST. PATIENT, LEVEL III Diagnosis: Pain in left shoulder[ICD10: M25.512] Diagnosis: Pain in right shoulder[ICD10: M25.511] Yarely Vega MD, [facility] CPT-4: 20737 02/26/2018 ([id number]) 36084 EST. PATIENT, LEVEL III Diagnosis: Nausea[ICD10: R11.0] Diagnosis: Cough[ICD10: R05] Diagnosis: 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 factor deficiency[ICD10: D51.0] Janet Vega MD, [facility] CPT-4: 00575 12/12/2017 ([id number]) 03276 EST. PATIENT, LEVEL IV Diagnosis: Acute bronchitis due to Hemophilus influenzae[ICD10: J20.1] Diagnosis: Cough[ICD10: R05] Yarely Vega MD, [facility] CPT-4: 59463 12/04/2017 ([id number]) 04142 EST. PATIENT, LEVEL IV Diagnosis: Essential (primary) hypertension[ICD10: I10] Diagnosis: Cough[ICD10: R05] Diagnosis: Chronic atrial fibrillation[ICD10: I48.2] Yarely Vega MD, [facility] CPT-4: 72330 11/20/2017 ([id number]) 46009 EST. PATIENT, LEVEL III Diagnosis: Cough[ICD10: R05] Diagnosis: Acute upper respiratory infection, unspecified[ICD10: J06.9] Janet Vega MD, [facility] CPT-4: 12696 09/15/2017 [id number] EST. PATIENT, LEVEL III Diagnosis: Laceration without foreign body of right forearm, initial encounter[ICD10: S51.811A] Diagnosis: Other vitamin B12 deficiency anemias[ICD10: D51.8] Brianna Vega MD, [facility] CPT-4: 32660 09/07/2017 ([id number]) 60155 EST. PATIENT, LEVEL IV Diagnosis: Chronic atrial fibrillation[ICD10: I48.2] Diagnosis: Other allergic rhinitis[ICD10: J30.89] Diagnosis: Encounter for therapeutic drug level monitoring[ICD10: Z51.81] Yarely Vega MD, [facility] CPT-4: 88599 08/30/2017 ([id number]) 04691 EST. PATIENT, LEVEL IV Diagnosis: Atrophy of thyroid (acquired)[ICD10: E03.4] Diagnosis: Cough[ICD10: R05] Diagnosis: Laceration without foreign body of left forearm, initial encounter[ICD10: S51.812A] Diagnosis: Candidiasis of skin and nail[ICD10: B37.2] Diagnosis: Other vitamin B12 deficiency anemias[ICD10: D51.8] Diagnosis: Slow transit constipation[ICD10: K59.01] Yarely Vega MD, [facility] CPT-4: 80921 07/06/2017 90129 EST. PATIENT, LEVEL III Diagnosis: Other vitamin B12 deficiency anemias[ICD10: D51.8] Diagnosis: Acute laryngopharyngitis[ICD10: J06.0] Diagnosis: Other allergic rhinitis[ICD10: J30.89] Brianna Vega MD, [facility] CPT- 4: 74706 06/20/2017 ([id number]) 94207 EST. PATIENT, LEVEL IV Diagnosis: Essential (primary) hypertension[ICD10: I10] Diagnosis: Chronic atrial fibrillation[ICD10: I48.2] Diagnosis: Atrophy of thyroid (acquired)[ICD10: E03.4] Diagnosis: 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 factor deficiency[ICD10: D51.0] Yarely Vega MD, [facility] CPT-4: 94196 05/25/2017 ([id number]) 14473 EST. PATIENT, LEVEL IV Diagnosis: Type 2 diabetes mellitus without complications[ICD10: E11.9] Diagnosis: Atrophy of thyroid (acquired)[ICD10: E03.4] Diagnosis: Chest pain on breathing[ICD10: R07.1] Diagnosis: Chondrocostal junction syndrome [Tietze][ICD10: M94.0] Diagnosis: Other fatigue[ICD10: R53.83] Yarely Vega MD, [facility] CPT-4: 28852 03/23/2017 ([id number]) 59815 EST. PATIENT, LEVEL IV Diagnosis: Type 2 diabetes mellitus without complications[ICD10: E11.9] Diagnosis: Essential (primary) hypertension[ICD10: I10] Diagnosis: Headache[ICD10: R51] Diagnosis: Atrophy of thyroid (acquired)[ICD10: E03.4] Diagnosis: Vitamin B12 deficiency anemia, unspecified[ICD10: D51.9] Yarely Vega MD, [facility] CPT-4: 40039 01/23/2017 02054 EST. PATIENT, LEVEL III Diagnosis: Low back pain[ICD10: M54.5] Diagnosis: Pain in thoracic spine[ICD10: M54.6] Brianna Vega MD, [facility] CPT- 4: 26256 11/02/2016 ([id number]) 99012 EST. PATIENT, LEVEL IV Diagnosis: Essential (primary) hypertension[ICD10: I10] Diagnosis: Other vitamin B12 deficiency anemias[ICD10: D51.8] Diagnosis: Generalized abdominal pain[ICD10: R10.84] Yarely Vega MD, [facility] CPT-4: 32144 09/29/2016 ([id number]) 00129 EST. PATIENT, LEVEL IV Diagnosis: Essential (primary) hypertension[ICD10: I10] Yarely Vega MD, [facility] CPT-4: 44409 07/26/2016 ([id number]) 29985 EST. PATIENT, LEVEL IV Diagnosis: Benign lipomatous neoplasm of skin and subcutaneous tissue of right leg[ICD10: D17.23] Diagnosis: Pain in right ankle and joints of right foot[ICD10: M25.571] Diagnosis: Encounter for immunization[ICD10: Z23] Diagnosis: Vitamin B12 deficiency anemia, unspecified[ICD10: D51.9] Yarely Vega MD, [facility] CPT-4: 95117 05/25/2016 97395 EST. PATIENT, LEVEL III Diagnosis: Other chest pain[ICD10: R07.89] Diagnosis: Other vitamin B12 deficiency anemias[ICD10: D51.8] Brianna Vega MD, [facility] CPT-4: 14304 02/25/2016 ([id number]) 32839 EST. 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 PATIENT, LEVEL III Diagnosis: Other vitamin B12 deficiency anemias[ICD10: D51.8] Diagnosis: Acute nasopharyngitis [common cold][ICD10: J00] Diagnosis: Other allergic rhinitis[ICD10: J30.89] Brianna Vega MD, [facility] CPT- 4: 78446 11/11/2015 ([id number]) 72993 EST. PATIENT, LEVEL IV Diagnosis: Essential tremor[ICD10: G25.0] Diagnosis: Chronic fatigue, unspecified[ICD10: R53.82] Diagnosis: Other hypersomnia[ICD10: G47.19] Diagnosis: Essential (primary) hypertension[ICD10: I10] Yarely Vega MD, [facility] CPT-4: 94960 10/12/2015 ([id number]) 91746 EST. PATIENT, LEVEL IV Diagnosis: Essential (primary) hypertension[ICD10: I10] Diagnosis: Chronic atrial fibrillation[ICD10: I48.2] Diagnosis: Abnormal levels of other serum enzymes[ICD10: R74.8] Diagnosis: Type 2 diabetes mellitus without complications[ICD10: E11.9] Diagnosis: Vitamin B12 deficiency anemia, unspecified[ICD10: D51.9] Yarely Vega MD, [facility] CPT-4: 82423 09/03/2015 ([id number]) 42331 EST. PATIENT, LEVEL III Diagnosis: Nausea[ICD10: R11.0] Diagnosis: Essential tremor[ICD10: G25.0] Diagnosis: Actinic keratosis[ICD10: L57.0] Yarely Vega MD, [facility] CPT-4: 89424 05/19/2015 ([id number]) 77789 EST. PATIENT, LEVEL IV Diagnosis: Vitamin B12 deficiency anemia, unspecified[ICD10: D51.9] Diagnosis: Chronic atrial fibrillation[ICD10: I48.2] Diagnosis: Headache[ICD10: R51] Diagnosis: Chronic fatigue, unspecified[ICD10: R53.82] Diagnosis: Cervicalgia[ICD10: M54.2] [facility] CPT-4: 85889 05/12/2015 ([id number]) 06082 EST. PATIENT, LEVEL IV Diagnosis: ESSENTIAL HYPERTENSION[ICD9: 401.9] Diagnosis: Afib[ICD9: 427.31] Diagnosis: Anxiety[ICD9: 300.00] Diagnosis: Insomnia[ICD9: 780.52] [facility] CPT-4: 09737 01/13/2015 ([id number]) OFFICE VISIT, NEW - LEVEL 4 Diagnosis: Hypothyroidism[ICD9: 244.9] Diagnosis: DIABETES TYPE II[ICD9: 250.00] Diagnosis: ESSENTIAL HYPERTENSION[ICD9: 401.9] Diagnosis: Afib[ICD9: 427.31] Diagnosis: Anxiety[ICD9: 300.00] Diagnosis: B12 deficiency[ICD9: 266.2] Janet Vega MD, [facility] CPT-4: 10137 12/16/2014 Plan of Care Planned Activity Notes Codes Status Date Appointment: Injection 09/27/2018 Patient Education: Patient Medication Summary Completed 09/27/2018 App[phone] [facility] (15 min) Moderate 09/11/2018 Appointment: Injection 09/11/2018 [...] of control. 09/05/2018 Appointment: Yarely Vega WPtel: [facility] (15 min) Moderate 09/05/2018 Patient Education: Patient [...] Summary Completed 06/20/2018 Appointment: Yarely Vega WPtel: [facility] (30 min) Complex 06/07/2018 Appointment: Injection 06/06/2018 Patient Education: Patient Medication Summary Completed 06/06/2018 Appointment: Yarely Vega WPtel: [facility] (15 min) Moderate 05/31/2018 Appointment: Injection 05/24/2018 [...] flonase 05/03/2018 Appointment: [facility] [phone] [facility] [place] (15 min) Moderate 05/03/2018 Patient Education: [...] surgical intervention. 02/26/2018 Appointment: Yarely Vega WPtel: [facility] [place] (15 min) Moderate 02/26/2018 Patient Education: Patient Medication Summary Completed 02/26/2018 Care Plan: Referral Order SNOMED-CT : 897051013 Pending 02/26/2018 Appointment: Injection 02/08/2018 Patient Education: Patient Medication Summary Completed 02/08/2018 Appointment: Injection 01/24/2018 Patient Education: Patient Medication Summary Completed 01/24/2018 Appointment: Injection 01/10/2018 Patient Education: Patient Medication Summary Completed 01/10/2018 Appointment: Injection 12/27/2017 Patient Education: Patient Medication Summary Completed 12/27/2017 Appointment: [facility] [phone] [facility] [place] (15 min) Moderate 12/26/2017 Visit Plan: Xlvbvx-iducboway-eylmwakd protonix-follow up with Dr Navarro as scheduled Cough-recent bronchitis-symptoms improved-call if symptoms do not completely resolve 12/12/2017 Appointment: Janet Fam WPtel: [phone] [phone] (15 min) Moderate 12/12/2017 Patient Education: [...] 12/04/2017 Appointment: Yarely Vega WPtel: [phone] [facility] (15 min) Moderate 12/04/2017 Patient Education: Patient [...] Fatigue/malaise -Pt was advsied to ask the [employer] Optician the following: ask the heart doctor if [...] becoming uncontrolled. 11/20/2017 Appointment: [facility] [phone] [facility] (15 min) Moderate 11/20/2017 Patient Education: Patient [...] any worse. 09/15/2017 Appointment: Janet Fam WPtel: [phone] [place] [phone] [place] (15 min) Moderate 09/15/2017 Patient Education: Patient Medication Summary Completed 09/15/2017 Appointment: Yarely Vega WPtel: [facility] [place] [address] [place] (15 min) Moderate 09/11/2017 Visit Plan: Skin tear and Cellulitis - The patient was instructed in appropriate wound care. The patient was instructed to use the antibiotic ointment as per RX. The patient is to call for any change in symptoms, increase in size of the lesion, increase in pain, worsening redness, warmth, discharge. 09/07/2017 Appointment: Brianna Otoole WPtel: [facility] [place] (10 min) Simple 09/07/2017 Patient Education: Patient Medication Summary Completed 09/07/2017 Visit Plan: Lipoma - left ankle - talk to dr. barnes about possible surgery/laser for treatment of lipoma. Fatigue/malaise -Pt was advsied to ask the [employer] Optician the following: ask the heart doctor if there is an alternative to the amiodarone - you may be having side effects from the medication causing you to have pruritus (itching) and feeling like you have body aches, muscle aches, joint pain, fatigue, weight loss (decreased appetite), and pneumonia like symptoms. Congestion - claritin 10mg daily. 08/30/2017 Appointment: Yarely Vega WPtel: [facility] [place] [address] [place] (15 min) Moderate 08/30/2017 Patient Education: Patient Medication Summary Completed 08/30/2017 Appointment: Injection 08/24/2017 Appointment: Yarely Vega WPtel: [phone] [facility] (15 min) Moderate 08/24/2017 Patient Education: Patient [...] mucinex 07/06/2017 Appointment: Yarely Vega WPtel: [phone] [facility] (15 min) Moderate 07/06/2017 Patient Education: Patient [...] spray. 06/20/2017 App[facility]ment[phone] ([facility] min) Moderate 06/20/2017 Patient [...] Bucky 06/05/2017 Appointment: [facility]toole [facility]el[facility] [phone] [facility] [facility] - Annual Wellness Visit 06/05/2017 Patient [...] q 3 months or q 6 m [facility] based on previous levels of control. 05/25/2017 Appointment: [facility]Ptel[facility] [phone] [facility] (15 min) Moderate 05/25/2017 Patient Education: [...] wall. Fatigue - pt to discuss with [employer] Optician about the possibility of amiodarone causing her fatigue/malaise. 03/23/2017 Appointment: [facility]ly [facility]Ptel[facility] [phone] [facility] (15 min) Moderate 03/23/2017 Patient Education: [...] twice daily. 01/23/2017 Appointment: Yarely Vega WPtel: [address] [place], [place] [address] [place] (15 min) Moderate 01/23/2017 Patient Education: [...] improve. 11/02/2016 Appointment: [phone] [facility] [place] (15 min) Moderate 11/02/2016 [...] with carafate 09/29/2016 Appointment: [facility]arely [facility]Ptel: [phone] [facility] [place] (15 min) Moderate 09/29/2016 Patient Education: Patient Medication Summary Completed 09/29/2016 Appointment: Yarely Vega WPtel: [phone] [facility] [place] (15 min) Moderate 09/27/2016 Appointment: [facility]Ptel: [phone] [facility] [place] (15 min) Moderate 09/20/2016 Appointment: Yarely Vega WPtel: [phone] [facility] [place] (15 min) Moderate 09/20/2016 Patient Education: Patient Medication Summary Completed 09/06/2016 Appointment: Yarely Vega WPtel: [phone] [facility] [place] (15 min) Moderate 08/30/2016 Appointment: [...] acute concerns. 07/26/2016 Appointment: Yarely Vega WPtel: [facility] [place] (15 min) Moderate 07/26/2016 Patient [...] surrogate. 05/30/2016 Appointment: [facility]toole [facility]el[facility] [phone] [facility] [facility] - Annual Wellness Visit 05/30/2016 Patient [...] bedtime 05/25/2016 Appointment: [facility]arely [facility]ega [facility]Ptel: [phone] [facility] (15 min) Moderate 05/25/2016 Patient Education: Patient Medication Summary Completed 05/25/2016 Patient Education: Obesity Completed 05/25/2016 Care Plan: Referral Order SNOMED-CT : [id number] Pending 05/25/2016 Appointment: Injection 05/10/2016 Patient Education: Patient Medication Summary Completed 05/10/2016 Appointment: Injection 04/26/2016 Patient Education: Patient Medication Summary Completed 04/26/2016 Appointment: Injection 04/11/2016 Patient Education: Patient Medication Summary Completed 04/11/2016 Appointment: Injection 03/31/2016 Patient Education: Patient Medication Summary Completed 03/31/2016 Patient Education: Patient Medication Summary Completed 03/22/2016 [facility] Plan[facility] [id number] Pending 03/22/2016 Appointment: Injection 03/15/2016 Patient Education: [...] any concerns. 02/25/2016 Appointment: Brianna Otoole WPtel: [facility] (15 min) Moderate 02/25/2016 Patient [...] the patients recent sleep study - recommended [place] home patient eval of pt - nocturnal [...] the patients recent sleep study - recommended [place] home patient eval of pt - nocturnal [...] Faiza's daughter who had left [facility]. She is interested in looking at assisted living facilities for her mom as Faiza's family is for assisted living placement sooner rather than later. 10/12/2015 Appointment: Gary [facility]Ptel[facility] [phone] [facility] (15 min) Moderate 10/12/2015 Patient Education: [...] Completed 08/17/2015 Appointment: Yarely Vega WPtel: [phone] [facility] [place] (15 min) Moderate 08/11/2015 Appointment: Injection [...] 2 05/19/2015 Appointment: Yarely [facility]ega WPtel: [phone] [facility] (30 min) [facility] 05/19/2015 Patient Education: Patient Medication [...] prn alprazolam. 01/13/2015 Appointment: Yarely Vega WPtel: [facility] (15 min) Moderate 01/13/2015 Patient Education: [...] current medications. 12/16/2014 Appointment: [facility]el[phone] [facility] [place] ([place]) New Patient 12/16/2014 [...] Faiza's daughter who had left [facility]. She is interested in looking at assisted [...] DOPA paperwork for health care surrogate. . Sccllw-rshpjigvw-tgkyaolp protonix-follow up with Dr Navarro as scheduled [...] Fatigue/malaise -Pt was advsied to ask the [employer] Optician the following: ask the heart doctor if [...] Fatigue/malaise -Pt was advsied to ask the [employer] Optician the following: ask the heart doctor if [...] control. headaches - take topamax at bedtime increase norvasc from 5mg daily to 10mg [...] is to call for acute concerns. . Hypertension - well controlled - continue [...] the patients recent sleep study - recommended [place] patient eval of pt - nocturnal oxygen [...] her DOPA paperwork for health care surrogate. talk to Heart doctor about possible amiodarone [...] wall. Fatigue - pt to discuss with [employer] Optician about the possibility of amiodarone causing her [...] the patients recent sleep study - recommended [place] home patient eval of pt - nocturnal [...] continue with current treatment plan and mucinex . Bronchitis - acute case of bronchitis [...]
--- OUTSIDE RECORDS SUMMARY | 2018-12-05 17:01 | XMS REPORT | CCD ---
Author Author [facility] Organization [facility] Address [address] [place] [address] Phone Care Team Providers Care Glove Cutter Name Role Phone PP Unavailable CCM Unavailable Summary Purpose Interface Exchange Insurance Providers Payer name Policy type / Coverage type Covered libertarian ID Effective Begin Date Effective End Date WPS Medicare Part B Medicare Part B [id number] Unknown Principal Life Insurance Medicare Part B [id number] Unknown [employer] in [place] Medicare Part B [id number] Unknown Family history Brother Diagnosis Age At Onset Heart Attack Unknown Mother Diagnosis Age At Onset Hypertension Unknown kidney disease Unknown Stroke Unknown Father Diagnosis Age At Onset Arthritis Unknown Social History Social History Element Codes Description Effective Dates Employment Unknown Retired worked at [employer] 11/20/2017 Marital status Unknown Single 12/16/[address]: 0296166 Former smoker 12/16/[address]: 690094969 Never drinks alcohol 12/16/2014 Allergies, Adverse Reactions, Alerts Substance Reaction Codes Entered Date Inactivated Date Status CODEINE RxNorm: 2670 05/25/2016 No Inactive Date Active ciprofloxacin RxNorm: 99466 12/16/2014 No Inactive Date Active MORPHINE SULFATE [...] (vit B-12) 1,000 mcg/mL injection solution RxNorm: 449021 Milliliter(s) Inj 09/27/2018 09/27/2018 Inactive levothyroxine 137 mcg tablet RxNorm: 470607 1 Tablet(s) PO daily 09/12/2018 03/10/2019 Active levothyroxine 137 mcg tablet RxNorm: 817294 1 Tablet(s) PO daily 09/12/2018 09/11/2018 Inactive cyanocobalamin (vit B-12) 1,000 mcg/mL injection solution RxNorm: 956264 Milliliter(s) Inj 09/11/2018 09/11/2018 Inactive levothyroxine 125 mcg tablet RxNorm: 456103 TAKE 1 TABLET BY MOUTH EVERY DAY 09/10/2018 09/11/2018 Inactive Generic For:SYNTHROID 125MCG TAB 09/10/2018 12:06:52 PM cyanocobalamin (vit B-12) 1,000 mcg/mL injection solution RxNorm: 287038 Milliliter(s) Inj 08/29/2018 08/29/2018 Inactive alprazolam 0.25 mg tablet RxNorm: 269870 1 Tablet(s) PO BID 08/21/2018 02/16/2019 Active albuterol sulfate 2.5 mg/3 mL (0.083 %) solution for nebulization RxNorm: 482029 3 Milliliter(s) INH Q6 PRN 08/15/2018 No Stop Date Active Aricept 10 mg tablet RxNorm: 902210 1 Tablet(s) PO daily 08/15/2018 08/09/2019 Active liothyronine 5 mcg tablet RxNorm: 146400 Tablet(s) TAKE 1 TABLET BY MOUTH TWICE DAILY 08/15/2018 02/10/2019 Active cyanocobalamin (vit B-12) 1,000 mcg/mL injection solution RxNorm: 403592 Milliliter(s) Inj 08/15/2018 08/15/2018 Inactive Kenalog 40 mg/mL suspension for injection RxNorm: 2711566 Milliliter(s) Inj 08/15/2018 08/15/2018 Inactive doxycycline hyclate 100 mg capsule RxNorm: 4307546 1 Capsule(s) PO BID 08/15/2018 08/24/2018 Inactive cyanocobalamin (vit B-12) 1,000 mcg/mL injection solution RxNorm: 085879 Milliliter(s) Inj 08/01/2018 08/01/2018 Inactive cyanocobalamin (vit B-12) 1,000 mcg/mL injection solution RxNorm: 086508 Milliliter(s) Inj 07/19/2018 07/19/2018 Inactive hydrocodone 5 mg-acetaminophen 325 mg tablet RxNorm: 782892 1-2 Tablet(s) PO Q6 as needed for pain 07/18/2018 08/15/2018 Inactive betamethasone valerate 0.1 % topical ointment RxNorm: 558104 1 TOP BID 07/04/2018 07/03/2018 Inactive applying to skin under nose x 10 days cyanocobalamin (vit B-12) 1,000 mcg/mL injection solution RxNorm: 392040 Milliliter(s) Inj 07/04/2018 07/04/2018 Inactive betamethasone valerate 0.1 % topical ointment RxNorm: 219333 1 TOP BID 07/04/2018 07/13/2018 Inactive applying to skin under nose x 10 days Aricept 10 mg tablet RxNorm: 733988 Tablet(s) 1 Tablet(s) PO daily 06/25/2018 08/14/2018 Inactive Flonase Allergy Relief 50 mcg/actuation nasal spray,suspension RxNorm: 7417925 [place] 1 [place] NASAL BID 06/20/2018 10/17/2018 Active cyanocobalamin (vit B-12) 1,000 mcg/mL injection solution RxNorm: 244860 Milliliter(s) Inj 06/20/2018 06/20/2018 Inactive hydrocodone 5 mg-acetaminophen 325 mg tablet RxNorm: 359830 1-2 Tablet(s) PO Q6 as needed for pain 06/20/2018 07/17/2018 Inactive cyanocobalamin (vit B-12) 1,000 mcg/mL injection solution RxNorm: 665440 Milliliter(s) Inj 06/06/2018 06/06/2018 Inactive alprazolam 0.25 mg tablet RxNorm: 895214 1 Tablet(s) PO BID 05/25/2018 08/21/2018 Inactive hydrocodone 5 mg-acetaminophen 325 mg tablet RxNorm: 553252 1-2 Tablet(s) PO Q6 as needed for pain 05/24/2018 06/19/2018 Inactive cyanocobalamin (vit B-12) 1,000 mcg/mL injection solution RxNorm: 914071 Milliliter(s) Inj 05/24/2018 05/24/2018 Inactive cyanocobalamin (vit B-12) 1,000 mcg/mL injection solution RxNorm: 820309 Milliliter(s) Inj 05/09/2018 05/09/2018 Inactive Claritin 10 mg tablet RxNorm: 461450 TAKE 1 TABLET BY MOUTH ONCE DAILY 05/08/2018 05/02/2019 Active Generic For:CLARITIN 10MG 05/07/2018 9:13:47 AM cyanocobalamin (vit B-12) 1,000 mcg/mL injection solution RxNorm: 063870 INJECT ONE 1 ML EVERY TWO WEEKS 05/03/2018 04/03/2019 Active 05/03/2018 9:13:42 AM Mobic 15 mg tablet RxNorm: 937228 Tablet(s) 1 Tablet(s) PO daily 04/26/2018 04/20/2019 Active buspirone 15 mg tablet RxNorm: 696275 Tablet(s) TAKE 1 TABLET BY MOUTH TWICE DAILY 04/26/2018 04/20/2019 Active Generic For:BUSPAR 15MG 05/31/2017 9:19:20 AM Norvasc 5 mg tablet RxNorm: 343200 Tablet(s) 1 Tablet(s) PO daily 04/26/2018 04/20/2019 Active cyanocobalamin (vit B-12) 1,000 mcg/mL injection solution RxNorm: 145079 Milliliter(s) Inj 04/26/2018 04/26/2018 Inactive hydrocodone 5 mg-acetaminophen 325 mg tablet RxNorm: 738360 1-2 Tablet(s) PO Q6 as needed for pain 04/25/2018 05/23/2018 Inactive cyanocobalamin (vit B-12) 1,000 mcg/mL injection solution RxNorm: 497285 Milliliter(s) Inj 04/12/2018 04/12/2018 Inactive Topamax 25 mg tablet RxNorm: 432330 1 Tablet(s) PO BID 04/09/2018 05/02/2018 Inactive Generic For:TOPAMAX 25MG 12/06/2016 9:15:13 AM Zoloft 50 mg tablet RxNorm: 814035 TAKE 1 TABLET BY MOUTH ONCE DAILY 04/04/2018 12/29/2018 Active Generic For:ZOLOFT 50MG 04/04/2018 9:13:25 AM cyanocobalamin (vit B-12) 1,000 mcg/mL injection solution RxNorm: 196083 Milliliter(s) Inj 03/30/2018 03/30/2018 Inactive levothyroxine 125 mcg tablet RxNorm: 623177 TAKE 1 TABLET BY MOUTH EVERY DAY 03/26/2018 09/09/2018 Inactive Generic For:SYNTHROID 125MCG TAB 03/26/2018 9:15:59 AM liothyronine 5 mcg tablet RxNorm: 760413 TAKE 1 TABLET BY MOUTH TWICE DAILY 03/26/2018 08/14/2018 Inactive Generic For:CYTOMEL 5MCG 03/26/2018 9:15:54 AM hydrocodone 5 mg-acetaminophen 325 mg tablet RxNorm: 620652 1-2 Tablet(s) PO Q6 as needed for pain 03/19/2018 04/17/2018 Inactive cyanocobalamin (vit B-12) 1,000 mcg/mL injection solution RxNorm: 129445 Milliliter(s) Inj 03/16/2018 03/16/2018 Inactive Flonase Allergy Relief 50 mcg/actuation nasal spray,suspension RxNorm: 4202137 1 [place] NASAL BID 03/05/2018 06/19/2018 Inactive cyanocobalamin (vit B-12) 1,000 mcg/mL injection solution RxNorm: 743302 Milliliter(s) Inj 03/02/2018 03/02/2018 Inactive alprazolam 0.25 mg tablet RxNorm: 292307 1 Tablet(s) PO BID 02/28/2018 05/27/2018 Inactive cyanocobalamin (vit B-12) 1,000 mcg/mL injection solution RxNorm: 528564 Milliliter(s) Inj 02/08/2018 02/08/2018 Inactive cyanocobalamin (vit B-12) 1,000 mcg/mL injection solution RxNorm: 203268 Milliliter(s) Inj 01/24/2018 01/24/2018 Inactive albuterol sulfate 2.5 mg/3 mL (0.083 %) solution for nebulization RxNorm: 865551 3 Milliliter(s) INH Q6 PRN 01/24/2018 05/02/2018 Inactive Claritin 10 mg tablet RxNorm: 712833 1 Tablet(s) PO daily 01/15/2018 05/07/2018 Inactive cyanocobalamin (vit B-12) 1,000 mcg/mL injection solution RxNorm: 072357 Milliliter(s) Inj 01/10/2018 01/10/2018 Inactive hydrocodone 5 mg-acetaminophen 325 mg tablet RxNorm: 185136 1-2 Tablet(s) PO Q6 as needed for pain 01/09/2018 02/07/2018 Inactive cyanocobalamin (vit B-12) 1,000 mcg/mL injection solution RxNorm: 556754 Milliliter(s) Inj 12/27/2017 12/27/2017 Inactive cyanocobalamin (vit B-12) 1,000 mcg/mL injection solution RxNorm: 136544 1 Milliliter(s) Inj 12/12/2017 12/12/2017 Inactive Zofran ODT 4 mg disintegrating tablet RxNorm: 913072 1 Tablet(s) PO TID as needed 12/08/2017 12/09/2017 Inactive hydrocodone 2.5 mg-guaifenesin 200 mg/5 mL oral solution RxNorm: 531380 5 Milliliter(s) PO 12/04/2017 05/06/2018 Inactive doxycycline hyclate 100 mg capsule RxNorm: 7944807 1 Capsule(s) PO BID 12/04/2017 12/13/2017 Inactive cyanocobalamin (vit B-12) 1,000 mcg/mL injection solution RxNorm: 316710 Milliliter(s) Inj 12/01/2017 12/01/2017 Inactive Flonase Allergy Relief 50 mcg/actuation nasal spray,suspension RxNorm: 2869254 1 [place] NASAL BID 11/20/2017 2018 Inactive cyanocobalamin (vit B-12) 1,000 mcg/mL injection solution RxNorm: 249375 1 Milliliter(s) Inj 11/17/2017 11/17/2017 Inactive hydrocodone 5 mg-acetaminophen 325 mg tablet RxNorm: 675642 1-2 Tablet(s) PO Q6 as needed for pain 11/16/2017 12/15/2017 Inactive cyanocobalamin (vit B-12) 1,000 mcg/mL injection solution RxNorm: 968977 1 Milliliter(s) Inj 11/02/2017 11/02/2017 Inactive hydrocodone 5 mg-acetaminophen 325 mg tablet RxNorm: 360984 1-2 Tablet(s) PO Q6 as needed for pain 10/25/2017 11/15/2017 Inactive Claritin 10 mg tablet RxNorm: 506148 1 Tablet(s) PO daily 10/25/2017 11/19/2017 Inactive albuterol sulfate 2.5 mg/3 mL (0.083 %) solution for nebulization RxNorm: 620529 3 Milliliter(s) INH Q6 PRN 10/25/2017 01/23/2018 Inactive Claritin 10 mg tablet RxNorm: 328083 1 Tablet(s) PO daily 10/25/2017 10/24/2017 Inactive cyanocobalamin (vit B-12) 1,000 mcg/mL injection solution RxNorm: 184442 1 Milliliter(s) Inj 10/20/2017 10/20/2017 Inactive Zoloft 50 mg tablet RxNorm: 409816 TAKE 1 TABLET BY MOUTH ONCE DAILY 10/13/2017 04/03/2018 Inactive Generic For:ZOLOFT 50MG 10/13/2017 8:59:44 AM cyanocobalamin (vit B-12) 1,000 mcg/mL injection solution RxNorm: 174592 Milliliter(s) Inj 10/06/2017 10/06/2017 Inactive liothyronine 5 mcg tablet RxNorm: 184094 TAKE 1 TABLET BY MOUTH TWICE DAILY 10/03/2017 03/25/2018 Inactive Generic For:CYTOMEL 5MCG 10/03/2017 9:13:38 AM cyanocobalamin (vit B-12) 1,000 mcg/mL injection solution RxNorm: 324709 Milliliter(s) Inj 09/21/2017 09/21/2017 Inactive albuterol sulfate 2.5 mg/3 mL (0.083 %) solution for nebulization RxNorm: 003061 3 Milliliter(s) INH Q6 PRN 09/21/2017 10/24/2017 Inactive hydrocodone 5 mg-acetaminophen 325 mg tablet RxNorm: 846629 1-2 Tablet(s) PO Q6 as needed for pain 09/21/2017 10/20/2017 Inactive Kenalog 40 mg/mL suspension for injection RxNorm: 4761806 Milliliter(s) Inj 09/15/2017 09/15/2017 Inactive Keflex 500 mg capsule RxNorm: 704447 1 Capsule(s) PO TID 09/07/2017 09/16/2017 Inactive Please deliver to patient cyanocobalamin (vit B-12) 1,000 mcg/mL injection solution RxNorm: 010585 Milliliter(s) Inj 09/07/2017 09/07/2017 Inactive alprazolam 0.25 mg tablet RxNorm: 797043 1 Tablet(s) PO BID 09/06/2017 02/27/2018 Inactive Aricept 10 mg tablet RxNorm: 523986 1 Tablet(s) PO daily 09/06/2017 06/24/2018 Inactive hydrocodone 5 mg-acetaminophen 325 mg tablet RxNorm: 543474 1-2 Tablet(s) PO Q6 as needed for pain 08/24/2017 09/20/2017 Inactive cyanocobalamin (vit B-12) 1,000 mcg/mL injection solution RxNorm: 504628 Milliliter(s) Inj 08/24/2017 08/24/2017 Inactive Norvasc 5 mg tablet RxNorm: 760768 1 Tablet(s) PO daily 08/18/2017 04/25/2018 Inactive nystatin 100,000 unit/gram topical powder RxNorm: 020932 1 Gram(s) TOP QID 08/17/2017 08/26/2017 Inactive hydrocodone 5 mg-acetaminophen 325 mg tablet RxNorm: 021924 1-2 Tablet(s) PO Q6 as needed for pain 07/25/2017 08/23/2017 Inactive Tamiflu 75 mg capsule RxNorm: 359819 1 Capsule(s) PO BID 07/24/2017 12/11/2017 Inactive nystatin 100,000 unit/gram topical powder RxNorm: 402249 1 Gram(s) TOP QID 07/14/2017 07/22/2017 Inactive levothyroxine 125 mcg tablet RxNorm: 400248 Tablet(s) 1 Tablet(s) PO daily 07/10/2017 01/05/2018 Inactive nystatin 100,000 unit/gram topical powder RxNorm: 515333 1 Gram(s) TOP QID 07/06/2017 07/13/2017 Inactive cyanocobalamin (vit B-12) 1,000 mcg/mL injection solution RxNorm: 700399 Milliliter(s) Inj 07/06/2017 07/06/2017 Inactive Kenalog 40 mg/mL suspension for injection RxNorm: 8421726 1 Milliliter(s) Inj 06/20/2017 06/20/2017 Inactive doxycycline hyclate 100 mg capsule RxNorm: 6681216 1 Capsule(s) PO BID 06/20/2017 06/26/2017 Inactive cyanocobalamin (vit B-12) 1,000 mcg/mL injection solution RxNorm: 798327 Milliliter(s) Inj 06/20/2017 06/20/2017 Inactive Keflex 500 mg capsule RxNorm: 573082 1 Capsule(s) PO TID 06/14/2017 06/23/2017 Inactive Please deliver to patient Mobic 15 mg tablet RxNorm: 768138 1 Tablet(s) PO daily 06/14/2017 04/25/2018 Inactive cyanocobalamin (vit B-12) 1,000 mcg/mL injection solution RxNorm: 597928 Milliliter(s) Inj 06/05/2017 06/05/2017 Inactive buspirone 15 mg tablet RxNorm: 099579 TAKE 1 TABLET BY MOUTH TWICE DAILY 05/31/2017 04/25/2018 Inactive Generic For:BUSPAR 15MG 05/31/2017 9:19:20 AM cyanocobalamin (vit B-12) 1,000 mcg/mL injection solution RxNorm: 816859 Milliliter(s) Inj 05/25/2017 05/25/2017 Inactive hydrocodone 5 mg-acetaminophen 325 mg tablet RxNorm: 053103 1-2 Tablet(s) PO Q6 as needed for pain 05/25/2017 06/23/2017 Inactive amiodarone 200 mg tablet RxNorm: 470611 1/2 Tablet(s) PO daily 05/22/2017 No Stop Date Active cardiology decreased to 100mg daily cyanocobalamin (vit B-12) 1,000 mcg/mL injection solution RxNorm: 982800 Milliliter(s) Inj 05/16/2017 05/16/2017 Inactive Zofran ODT 4 mg disintegrating tablet RxNorm: 813050 1 Tablet(s) PO TID as needed 05/03/2017 05/04/2017 Inactive hydrocodone 5 mg-acetaminophen 325 mg tablet RxNorm: 041754 1-2 Tablet(s) PO Q6 as needed for pain 05/01/2017 05/05/2017 Inactive cyanocobalamin (vit B-12) 1,000 mcg/mL injection solution RxNorm: 366642 1 Milliliter(s) Inj 05/01/2017 05/01/2017 Inactive cyanocobalamin (vit B-12) 1,000 mcg/mL injection solution RxNorm: 265582 INJECT ONE 1 ML EVERY TWO WEEKS 04/26/2017 12/04/2018 Active 04/26/2017 9:08:52 AM Zoloft 50 mg tablet RxNorm: 481890 Tablet(s) TAKE 1 TABLET BY MOUTH DAILY 04/25/2017 10/12/2017 Inactive Generic For:ZOLOFT 50MG cyanocobalamin (vit B-12) 1,000 mcg/mL injection solution RxNorm: 255284 Milliliter(s) Inj 04/18/2017 04/18/2017 Inactive liothyronine 5 mcg tablet RxNorm: 730393 1 Tablet(s) PO BID 04/13/2017 10/02/2017 Inactive cyanocobalamin (vit B-12) 1,000 mcg/mL injection solution RxNorm: 732816 Milliliter(s) Inj 04/06/2017 04/06/2017 Inactive hydrocodone 5 mg-acetaminophen 325 mg tablet RxNorm: 816009 1-2 Tablet(s) PO Q6 as needed for pain 04/06/2017 04/10/2017 Inactive cyanocobalamin (vit B-12) 1,000 mcg/mL injection solution RxNorm: 695938 Milliliter(s) Inj 03/22/2017 03/22/2017 Inactive alprazolam 0.25 mg tablet RxNorm: 565053 1 Tablet(s) PO BID 03/17/2017 12/11/2017 Inactive alprazolam 0.25 mg tablet RxNorm: 030809 1 Tablet(s) PO BID 03/16/2017 09/05/2017 Inactive hydrocodone 5 mg-acetaminophen 325 mg tablet RxNorm: 573239 1-2 Tablet(s) PO Q6 as needed for pain 03/09/2017 03/13/2017 Inactive cyanocobalamin (vit B-12) 1,000 mcg/mL injection solution RxNorm: 662168 Milliliter(s) Inj 03/09/2017 03/09/2017 Inactive cyanocobalamin (vit B-12) 1,000 mcg/mL injection solution RxNorm: 214801 Milliliter(s) Inj 02/23/2017 02/23/2017 Inactive cyanocobalamin (vit B-12) 1,000 mcg/mL injection solution RxNorm: 493600 Milliliter(s) Inj 02/09/2017 02/09/2017 Inactive hydrocodone 5 mg-acetaminophen 325 mg tablet RxNorm: 172865 1-2 Tablet(s) PO Q6 as needed for pain 02/08/2017 02/12/2017 Inactive Topamax 25 mg tablet RxNorm: 050201 1 Tablet(s) PO BID 01/23/2017 05/22/2017 Inactive Generic For:TOPAMAX 25MG 12/06/2016 9:15:13 AM cyanocobalamin (vit B-12) 1,000 mcg/mL injection solution RxNorm: 356601 Milliliter(s) Inj 01/23/2017 01/23/2017 Inactive cyanocobalamin (vit B-12) 1,000 mcg/mL injection solution RxNorm: 453612 Milliliter(s) Inj 01/10/2017 01/10/2017 Inactive hydrocodone 5 mg-acetaminophen 325 mg tablet RxNorm: 419253 1-2 Tablet(s) PO Q6 as needed for pain 01/09/2017 01/13/2017 Inactive cyanocobalamin (vit B-12) 1,000 mcg/mL injection solution RxNorm: 196211 1 Milliliter(s) Inj 12/28/2016 12/28/2016 Inactive cyanocobalamin (vit B-12) 1,000 mcg/mL injection solution RxNorm: 001002 Milliliter(s) Inj 12/14/2016 12/14/2016 Inactive buspirone 15 mg tablet RxNorm: 301863 1 Tablet(s) PO BID 12/12/2016 05/30/2017 Inactive hydrocodone 5 mg-acetaminophen 325 mg tablet RxNorm: 643893 1-2 Tablet(s) PO Q6 as needed for pain 12/08/2016 12/12/2016 Inactive Topamax 25 mg tablet RxNorm: 290546 TAKE 1 TABLET BY MOUTH EVERY DAY AT BEDTIME 12/06/2016 01/22/2017 Inactive Generic For:TOPAMAX 25MG 12/06/2016 9:15:13 AM Lac-Hydrin Five 5 % lotion RxNorm: 680030 1 Gram(s) TOP daily 12/02/2016 05/02/2018 Inactive cyanocobalamin (vit B-12) 1,000 mcg/mL injection solution RxNorm: 019998 Milliliter(s) Inj 11/24/2016 11/24/2016 Inactive Ceftin 500 mg tablet RxNorm: 521625 1 Tablet(s) PO BID 11/11/2016 06/13/2017 Inactive Cipro 500 mg tablet RxNorm: 334779 1 Tablet(s) PO BID 11/11/2016 11/10/2016 Inactive Cipro 500 mg tablet RxNorm: 855553 1 Tablet(s) PO BID 11/11/2016 11/11/2016 Inactive cyanocobalamin (vit B-12) 1,000 mcg/mL injection solution RxNorm: 416117 1 Milliliter(s) Inj 11/07/2016 11/07/2016 Inactive hydrocodone 5 mg-acetaminophen 325 mg tablet RxNorm: 571565 1-2 Tablet(s) PO Q6 as needed for pain 11/02/2016 11/06/2016 Inactive cyanocobalamin (vit B-12) 1,000 mcg/mL injection solution RxNorm: 729662 Milliliter(s) Inj 10/24/2016 10/24/2016 Inactive levothyroxine 125 mcg tablet RxNorm: 452175 Tablet(s) 1 Tablet(s) PO daily 10/24/2016 04/21/2017 Inactive liothyronine 5 mcg tablet RxNorm: 021276 1 Tablet(s) PO BID 10/24/2016 04/12/2017 Inactive hydrocodone 5 mg-acetaminophen 325 mg tablet RxNorm: 807042 1-2 Tablet(s) PO Q6 as needed for pain 10/17/2016 10/21/2016 Inactive Keflex 500 mg capsule RxNorm: 334203 1 Capsule(s) PO TID 10/07/2016 10/06/2016 Inactive Keflex 500 mg capsule RxNorm: 679481 1 Capsule(s) PO TID 10/07/2016 10/16/2016 Inactive Please deliver to patient cyanocobalamin (vit B-12) 1,000 mcg/mL injection solution RxNorm: 487497 1 Milliliter(s) Inj 09/29/2016 09/29/2016 Inactive alprazolam 0.25 mg tablet RxNorm: 884842 1 Tablet(s) PO BID 09/20/2016 03/16/2017 Inactive Cozaar 100 mg tablet RxNorm: 502356 1 Tablet(s) PO daily 09/14/2016 No Stop Date Active metoprolol tartrate 50 mg tablet RxNorm: 872464 1/2 Tablet(s) PO BID 09/14/2016 12/12/2016 Inactive Zoloft 50 mg tablet RxNorm: 002260 Tablet(s) TAKE 1 TABLET BY MOUTH DAILY 09/14/2016 03/12/2017 Inactive Generic For:ZOLOFT 50MG liothyronine 5 mcg tablet RxNorm: 532393 1 Tablet(s) PO BID 09/14/2016 10/23/2016 Inactive Calmoseptine 0.44 %-20.6 % topical ointment RxNorm: 032993 1 Application TOP BID and as needed to sore on buttocks 09/07/2016 No Stop Date Active cyanocobalamin (vit B-12) 1,000 mcg/mL injection solution RxNorm: 676766 Milliliter(s) Inj 08/29/2016 08/29/2016 Inactive hydrocodone 5 mg-acetaminophen 325 mg tablet RxNorm: 996906 1-2 Tablet(s) PO Q6 as needed for pain 08/29/2016 10/16/2016 Inactive levothyroxine 125 mcg tablet RxNorm: 636246 1 Tablet(s) PO daily 08/25/2016 10/23/2016 Inactive Topamax 25 mg tablet RxNorm: 282662 TAKE 1 TABLET BY MOUTH EVERY DAY AT BEDTIME 08/17/2016 12/05/2016 Inactive Generic For:TOPAMAX 25MG 08/17/2016 2:14:37 PM hydrocodone 5 mg-acetaminophen 325 mg tablet RxNorm: 666450 1-2 Tablet(s) PO Q6 as needed for pain 08/11/2016 08/28/2016 Inactive hydrocodone 5 mg-acetaminophen 325 mg tablet RxNorm: 193373 1 -2 Tablet(s) PO Q6 as needed for pain 08/11/2016 08/18/2016 Inactive hydrocodone 5 mg-acetaminophen 325 mg tablet RxNorm: 948538 1 Tablet(s) PO Q6 as needed for pain 08/05/2016 08/10/2016 Inactive cyanocobalamin (vit B-12) 1,000 mcg/mL injection solution RxNorm: 367642 Milliliter(s) Inj 08/04/2016 08/04/2016 Inactive Norvasc 10 mg tablet RxNorm: 896621 1 Tablet(s) PO daily 07/26/2016 07/20/2017 Inactive alprazolam 0.25 mg tablet RxNorm: 428331 1 Tablet(s) PO QHS 07/21/2016 09/19/2016 Inactive Norvasc 5 mg tablet RxNorm: 744301 1 Tablet(s) PO daily 07/21/2016 07/25/2016 Inactive levothyroxine 125 mcg tablet RxNorm: 490890 1 Tablet(s) PO daily 07/21/2016 12/11/2017 Inactive cyanocobalamin (vit B-12) 1,000 mcg/mL injection solution RxNorm: 975471 Milliliter(s) Inj 07/21/2016 07/21/2016 Inactive Zoloft 50 mg tablet RxNorm: 602246 Tablet(s) TAKE 1 TABLET BY MOUTH DAILY 07/21/2016 09/13/2016 Inactive Generic For:ZOLOFT 50MG cyanocobalamin (vit B-12) 1,000 mcg/mL injection solution RxNorm: 188363 1 Milliliter(s) Inj 07/05/2016 07/05/2016 Inactive cyanocobalamin (vit B-12) 1,000 mcg/mL injection solution RxNorm: 120545 1 Milliliter(s) Inj 06/22/2016 06/22/2016 Inactive cyanocobalamin (vit B-12) 1,000 mcg/mL injection solution RxNorm: 776947 Milliliter(s) Inj 06/09/2016 06/09/2016 Inactive Aricept 10 mg tablet RxNorm: 480181 1 Tablet(s) PO daily 05/27/2016 05/21/2017 Inactive Mobic 15 mg tablet RxNorm: 045329 1 Tablet(s) PO daily 05/27/2016 05/21/2017 Inactive levothyroxine 125 mcg tablet RxNorm: 946972 1 Tablet(s) PO daily 05/25/2016 07/20/2016 Inactive cyanocobalamin (vit B-12) 1,000 mcg/mL injection solution RxNorm: 608403 1 Milliliter(s) Inj 05/25/2016 05/25/2016 Inactive doxycycline hyclate 100 mg capsule RxNorm: 6122139 1 Capsule(s) PO BID 05/16/2016 05/15/2016 Inactive doxycycline hyclate 100 mg capsule RxNorm: 9101672 1 Capsule(s) PO BID 05/16/2016 05/22/2016 Inactive cyanocobalamin (vit B-12) 1,000 mcg/mL injection solution RxNorm: 738306 Milliliter(s) Inj 05/10/2016 05/10/2016 Inactive cyanocobalamin (vit B-12) 1,000 mcg/mL injection solution RxNorm: 723643 Milliliter(s) Inj 04/26/2016 04/26/2016 Inactive Topamax 25 mg tablet RxNorm: 959336 1 Tablet(s) PO QPM 04/22/2016 08/16/2016 Inactive cyanocobalamin (vit B-12) 1,000 mcg/mL injection solution RxNorm: 940240 Milliliter(s) 1 Milliliter(s) Inj [id number] 04/11/2016 12/31/2017 Inactive liothyronine 5 mcg tablet RxNorm: 703530 1 Tablet(s) PO BID 04/11/2016 09/13/2016 Inactive cyanocobalamin (vit B-12) 1,000 mcg/mL injection solution RxNorm: 261207 Milliliter(s) Inj 04/11/2016 04/11/2016 Inactive cyanocobalamin (vit B-12) 1,000 mcg/mL injection solution RxNorm: 192132 Milliliter(s) Inj 03/31/2016 03/31/2016 Inactive cyanocobalamin (vit B-12) 1,000 mcg/mL injection solution RxNorm: 939339 1 Milliliter(s) Inj 03/15/2016 03/15/2016 Inactive levothyroxine 125 mcg tablet RxNorm: 260783 1 Tablet(s) PO daily 2016 03/03/2016 Inactive levothyroxine 125 mcg tablet RxNorm: 830084 1 Tablet(s) PO daily 2016 05/24/2016 Inactive cyanocobalamin (vit B-12) 1,000 mcg/mL injection solution RxNorm: 047759 Milliliter(s) Inj 02/25/2016 02/25/2016 Inactive cyanocobalamin (vit B-12) 1,000 mcg/mL injection solution RxNorm: 273796 1 Milliliter(s) Inj 02/02/2016 02/02/2016 Inactive sucralfate 1 gram tablet RxNorm: 359842 1 Tablet(s) PO QHS 01/25/2016 No Stop Date Active amiodarone 200 mg tablet RxNorm: 211280 1/2 Tablet(s) PO BID 01/25/2016 05/21/2017 Inactive cyanocobalamin (vit B-12) 1,000 mcg/mL injection solution RxNorm: 318826 Milliliter(s) Inj 01/18/2016 01/18/2016 Inactive cyanocobalamin (vit B-12) 1,000 mcg/mL injection solution RxNorm: 247929 Milliliter(s) Inj 12/29/2015 12/29/2015 Inactive Topamax 25 mg tablet RxNorm: 202449 1 Tablet(s) PO QPM 12/08/2015 04/05/2016 Inactive cyanocobalamin (vit B-12) 1,000 mcg/mL injection solution RxNorm: 079849 Milliliter(s) Inj 12/08/2015 12/08/2015 Inactive Bactrim DS 800 mg-160 mg tablet RxNorm: 910470 1 Tablet(s) PO BID 11/23/2015 11/22/2015 Inactive cyanocobalamin (vit B-12) 1,000 mcg/mL injection solution RxNorm: 552605 Milliliter(s) Inj 11/23/2015 11/23/2015 Inactive Bactrim DS 800 mg-160 mg tablet RxNorm: 764134 1 Tablet(s) PO BID 11/23/2015 11/29/2015 Inactive cyanocobalamin (vit B-12) 1,000 mcg/mL injection solution RxNorm: 850499 Milliliter(s) Inj 11/11/2015 11/11/2015 Inactive amoxicillin 500 mg capsule RxNorm: 809785 1 Capsule(s) PO TID 11/10/2015 11/19/2015 Inactive Zithromax Z-Henrique 250 mg tablet RxNorm: 726229 1 Tablet(s) PO UD 11/10/2015 01/24/2016 Inactive zpack x 1 amoxicillin 500 mg capsule RxNorm: 157624 1 Capsule(s) PO TID 11/10/2015 11/09/2015 Inactive cyanocobalamin (vit B-12) 1,000 mcg/mL injection solution RxNorm: 713635 1 Milliliter(s) Inj 10/29/2015 10/29/2015 Inactive Rye 3 capsule RxNorm: 1 Capsule(s) PO QAM , 2 Capsules at noon, 1 Capsule QHS 10/13/2015 No Stop Date Active potassium chloride ER 20 mEq tablet,extended release RxNorm: 441322 2 Tablet(s) PO daily at noon 10/13/2015 No Stop Date Active alprazolam 0.25 mg tablet RxNorm: 899927 1 Tablet(s) PO QHS 10/13/2015 07/20/2016 Inactive amiodarone 200 mg tablet RxNorm: 502926 1 Tablet(s) PO BID 10/13/2015 01/24/2016 Inactive cyanocobalamin (vit B-12) 1,000 mcg/mL injection solution RxNorm: 443486 1 Milliliter(s) Inj 10/12/2015 10/12/2015 Inactive Zofran 4 mg tablet RxNorm: 848606 1 Tablet(s) PO daily as needed 10/07/2015 05/24/2016 Inactive Zoloft 50 mg tablet RxNorm: 812356 TAKE 1 TABLET BY MOUTH DAILY 10/05/2015 05/01/2016 Inactive Generic For:ZOLOFT 50MG cyanocobalamin (vit B-12) 1,000 mcg/mL injection solution RxNorm: 692336 1 Milliliter(s) Inj 09/29/2015 09/29/2015 Inactive cyanocobalamin (vit B-12) 1,000 mcg/mL injection solution RxNorm: 390360 1 Milliliter(s) Inj 09/17/2015 09/17/2015 Inactive Norvasc 5 mg tablet RxNorm: 108264 1 Tablet(s) PO daily 09/17/2015 07/20/2016 Inactive liothyronine 5 mcg tablet RxNorm: 401592 1 Tablet(s) PO BID 09/17/2015 03/14/2016 Inactive Zoloft 50 mg tablet RxNorm: 218557 1 Tablet(s) PO daily 09/17/2015 10/04/2015 Inactive buspirone 15 mg tablet RxNorm: 273031 1 Tablet(s) PO BID 09/17/2015 09/10/2016 Inactive buspirone 15 mg tablet RxNorm: 951884 1 Tablet(s) PO BID 09/14/2015 09/16/2015 Inactive Topamax 25 mg tablet RxNorm: 617204 1 Tablet(s) PO QPM 09/03/2015 12/07/2015 Inactive cyanocobalamin (vit B-12) 1,000 mcg/mL injection solution RxNorm: 867827 1 Milliliter(s) Inj 09/03/2015 09/03/2015 Inactive cyanocobalamin (vit B-12) 1,000 mcg/mL injection solution RxNorm: 769636 Milliliter(s) Inj 08/17/2015 08/17/2015 Inactive cyanocobalamin (vit B-12) 1,000 mcg/mL injection solution RxNorm: 904003 Milliliter(s) Inj 08/06/2015 08/06/2015 Inactive levothyroxine 150 mcg tablet RxNorm: 664379 1 Tablet(s) PO daily 07/22/2015 03/03/2016 Inactive Aricept 10 mg tablet RxNorm: 150680 1 Tablet(s) PO daily 07/22/2015 05/26/2016 Inactive Mobic 15 mg tablet RxNorm: 410830 1 Tablet(s) PO daily 07/22/2015 05/26/2016 Inactive cyanocobalamin (vit B-12) 1,000 mcg/mL injection solution RxNorm: 334628 Milliliter(s) Inj 07/22/2015 07/22/2015 Inactive liothyronine 5 mcg tablet RxNorm: 646331 1 Tablet(s) PO BID 07/22/2015 09/16/2015 Inactive cyanocobalamin (vit B-12) 1,000 mcg/mL injection solution RxNorm: 690681 Milliliter(s) Inj 07/08/2015 07/08/2015 Inactive cyanocobalamin (vit B-12) 1,000 mcg/mL injection solution RxNorm: 174912 Milliliter(s) Inj 06/23/2015 06/23/2015 Inactive cyanocobalamin (vit B-12) 1,000 mcg/mL injection solution RxNorm: 448200 1 Milliliter(s) Inj 06/08/2015 06/08/2015 Inactive cyanocobalamin (vit B-12) 1,000 mcg/mL injection solution RxNorm: 636968 Milliliter(s) Inj 05/27/2015 05/27/2015 Inactive Aricept 10 mg tablet RxNorm: 721661 1 Tablet(s) PO daily 05/20/2015 07/21/2015 Inactive Zofran 4 mg tablet RxNorm: 146743 1 Tablet(s) PO daily as needed 05/20/2015 06/18/2015 Inactive alprazolam 0.25 mg tablet RxNorm: 814918 1 Tablet(s) PO BID 05/20/2015 10/12/2015 Inactive Mobic 15 mg tablet RxNorm: 977043 1 Tablet(s) PO daily 05/20/2015 07/21/2015 Inactive tramadol ER 100 mg tablet,extended release 24 hr RxNorm: 267035 1 Tablet(s) PO Q6 as needed 05/13/2015 No Stop Date Active cyanocobalamin (vit B-12) 1,000 mcg/mL injection solution RxNorm: 264158 1 Milliliter(s) Inj 05/12/2015 05/12/2015 Inactive Topamax 25 mg tablet RxNorm: 535096 1 Tablet(s) PO BID (start at one pill at bedtime x 1week then twice daily thereafter) 05/12/2015 09/02/2015 Inactive cyanocobalamin (vit B-12) 1,000 mcg/mL injection kit RxNorm: 534438 kit Inj 04/30/2015 04/30/2015 Inactive cyanocobalamin (vit B-12) 1,000 mcg/mL injection solution RxNorm: 178920 Milliliter(s) Inj 04/16/2015 04/16/2015 Inactive levothyroxine 150 mcg tablet RxNorm: 314143 1 Tablet(s) PO daily 04/08/2015 07/21/2015 Inactive cyanocobalamin (vit B-12) 1,000 mcg/mL injection solution RxNorm: 392241 Milliliter(s) 1 Milliliter(s) Inj [id number] 04/08/2015 04/10/2016 Inactive Cytomel 5 mcg tablet RxNorm: 323662 1 Tablet(s) PO BID 04/08/2015 10/12/2015 Inactive Cytomel 5 mcg tablet RxNorm: 462074 1 Tablet(s) PO BID 04/07/2015 04/07/2015 Inactive Cytomel 5 mcg tablet RxNorm: 601641 1 Tablet(s) PO BID 04/07/2015 04/06/2015 Inactive cyanocobalamin (vit B-12) 1,000 mcg/mL injection solution RxNorm: 214198 Milliliter(s) Inj 04/02/2015 04/02/2015 Inactive cyanocobalamin (vit B-12) 1,000 mcg/mL injection solution RxNorm: 974316 Milliliter(s) Inj 03/18/2015 03/18/2015 Inactive cyanocobalamin (vit B-12) 1,000 mcg/mL injection solution RxNorm: 815839 Milliliter(s) 1 Milliliter(s) Inj [id number] 03/18/2015 04/07/2015 Inactive cyanocobalamin (vit B-12) 1,000 mcg/mL injection solution RxNorm: 963172 1 Milliliter(s) Inj [id number] 03/16/2015 03/17/2015 Inactive cyanocobalamin (vit B-12) 1,000 mcg/mL injection solution RxNorm: 005133 Milliliter(s) Inj 03/03/2015 03/03/2015 Inactive cyanocobalamin (vit B-12) 1,000 mcg/mL injection solution RxNorm: 672727 Milliliter(s) Inj 02/18/2015 02/18/2015 Inactive cyanocobalamin (vit B-12) 1,000 mcg/mL injection solution RxNorm: 772447 Milliliter(s) Inj 02/04/2015 02/04/2015 Inactive cyanocobalamin (vit B-12) 1,000 mcg/mL injection solution RxNorm: 587992 Milliliter(s) Inj 01/22/2015 01/22/2015 Inactive Lac-Hydrin Five 5 % lotion RxNorm: 123987 1 TOP daily 01/13/2015 03/13/2015 Inactive Lac-Hydrin Five 5 % lotion RxNorm: 337014 1 TOP daily 01/13/2015 01/12/2015 Inactive cyanocobalamin (vit B-12) 1,000 mcg/mL injection solution RxNorm: 675517 Milliliter(s) Inj 01/08/2015 01/08/2015 Inactive cyanocobalamin (vit B-12) 1,000 mcg/mL injection solution RxNorm: 661285 Milliliter(s) Inj 12/25/2014 12/25/2014 Inactive levothyroxine 150 mcg tablet RxNorm: 791978 1 Tablet(s) PO daily 12/24/2014 04/07/2015 Inactive tramadol 50 mg tablet RxNorm: 065838 1-2 Tablet(s) PO Q6 as needed 12/17/2014 05/12/2015 Inactive alprazolam 0.25 mg tablet RxNorm: 191656 1 Tablet(s) PO BID 12/17/2014 04/15/2015 Inactive Pradaxa 150 mg capsule RxNorm: 4429075 1 Capsule(s) PO BID 12/16/2014 No Stop Date Active metoprolol tartrate 50 mg tablet RxNorm: 136645 1/2 Tablet(s) PO BID 12/16/2014 09/13/2016 Inactive buspirone 15 mg tablet RxNorm: 600394 1 Tablet(s) PO BID 12/16/2014 09/13/2015 Inactive cyanocobalamin (vit B-12) 1,000 mcg/mL injection solution RxNorm: 695157 1 Milliliter(s) Inj [id number] 12/16/2014 03/15/2015 Inactive cyanocobalamin (vit B-12) 1,000 mcg/mL injection solution RxNorm: 955567 1 Milliliter(s) Inj [id number] 12/16/2014 12/15/2014 Inactive sucralfate 1 gram tablet RxNorm: 343349 Tablet(s) PO QID 12/16/2014 12/10/2015 Inactive cyanocobalamin (vit B-12) 1,000 mcg/mL injection solution RxNorm: 369229 Milliliter(s) Inj 12/10/2014 12/10/2014 Inactive cyanocobalamin (vit B-12) 1,000 mcg/mL injection solution RxNorm: 095137 Milliliter(s) Inj 11/26/2014 11/26/2014 Inactive Zoloft 50 mg tablet RxNorm: 932743 1 Tablet(s) PO daily 11/24/2014 06/21/2015 Inactive Zoloft 50 mg tablet RxNorm: 334485 1 Tablet(s) PO daily 11/24/2014 11/23/2014 Inactive cyanocobalamin (vit B-12) 1,000 mcg/mL injection kit RxNorm: 238546 Milliliter(s) Inj 11/12/2014 11/12/2014 Inactive cyanocobalamin (vit B-12) 1,000 mcg/mL injection solution RxNorm: 496724 Milliliter(s) Inj 10/28/2014 10/28/2014 Inactive [SAVINGS FOR NON-COVERED DRUGS -- BIN:[id number], PCN: [id number], Group: [id number], ID# [id number], Questions: . THIS IS NOT INSURANCE.] promethazine oral RxNorm: 8745 oral No Start Date Active tramadol 50 mg tablet RxNorm: 112597 1 Tablet(s) PO TID No Start Date Active digoxin 125 mcg tablet RxNorm: 594110 Tablet(s) PO every other day No Start Date Active furosemide 40 mg tablet RxNorm: 298460 1 Tablet(s) PO daily No Start Date Active Vitamin D3 5,000 unit tablet RxNorm: 989192 1 Tablet(s) PO daily No Start Date Active erythromycin 250 mg capsule,delayed release RxNorm: 702321 1 Capsule(s) PO AC No Start Date Active Protonix 40 mg tablet,delayed release RxNorm: 430874 1 Tablet(s) PO BID No Start Date Active Cozaar 100 mg tablet RxNorm: 940300 1 Tablet(s) PO daily No Start Date 09/13/2016 Inactive sucralfate 1 gram tablet RxNorm: 243119 Tablet(s) PO QID No Start Date 12/15/2014 Inactive amiodarone 200 mg tablet RxNorm: 026251 2 Tablet(s) PO daily No Start Date 10/13/2015 Inactive buspirone 15 mg tablet RxNorm: 168202 1 Tablet(s) PO daily No Start Date 12/15/2014 Inactive potassium chloride ER 20 mEq tablet,extended release RxNorm: 525747 1 Tablet(s) PO daily No Start Date 10/12/2015 Inactive Prilosec 40 mg capsule,delayed release RxNorm: 671397 1 Capsule(s) PO daily No Start Date 09/02/2015 Inactive Rye 3 capsule RxNorm: Capsule(s) PO No Start Date 10/12/2015 Inactive alprazolam 0.25 mg tablet RxNorm: 154577 Tablet(s) PO QHS No Start Date 12/16/2014 Inactive levothyroxine 125 mcg tablet RxNorm: 964966 1 Tablet(s) PO daily No Start Date 12/23/2014 Inactive liothyronine 5 mcg tablet RxNorm: 523134 1 Tablet(s) PO BID No Start Date 07/21/2015 Inactive Mobic 15 mg tablet RxNorm: 448613 Tablet(s) PO daily No Start Date 05/19/2015 Inactive Norvasc 5 mg tablet RxNorm: 575209 1 Tablet(s) PO daily No Start Date 09/16/2015 Inactive Zofran 4 mg tablet RxNorm: 555250 1 Tablet(s) PO daily as needed No Start Date 05/19/2015 Inactive Tamiflu 75 mg capsule RxNorm: 148480 1 Capsule(s) PO BID No Start Date 07/23/2017 Inactive tramadol 50 mg tablet RxNorm: 589218 1 Tablet(s) PO daily as needed No Start Date 12/16/2014 Inactive amiodarone 200 mg tablet RxNorm: 874734 1 Tablet(s) PO daily No Start Date 10/12/2015 Inactive Zofran ODT 4 mg disintegrating tablet RxNorm: 675863 1 Tablet(s) PO TID as needed No Start Date 05/02/2017 Inactive albuterol sulfate 2.5 mg/3 mL (0.083 %) solution for nebulization RxNorm: 082118 3 Milliliter(s) INH Q6 PRN No Start Date 09/20/2017 Inactive meclizine 25 mg tablet RxNorm: 656829 Tablet(s) PO as needed No Start Date 05/24/2016 Inactive Pradaxa 150 mg capsule RxNorm: 0381402 1 Capsule(s) PO daily No Start Date 12/15/2014 Inactive metoprolol tartrate 50 mg tablet RxNorm: 984272 1/2 Tablet(s) PO No Start Date 12/15/2014 Inactive Aricept 10 mg tablet RxNorm: 719607 Tablet(s) PO daily No Start Date 05/19/2015 Inactive Calmoseptine 0.44 %-20.6 % topical ointment RxNorm: 058262 1 Application TOP BID and as needed to sore on buttocks No Start Date 09/06/2016 Inactive Zithromax Z-Henrique 250 mg tablet RxNorm: 867935 1 Tablet(s) PO UD No Start Date 11/09/2015 Inactive zpack x 1 Medication Administered Medication Codes Instructions Start Date Status cyanocobalamin (vit B-12) 1,000 mcg/mL injection solution RxNorm: 292594 Milliliter 09/27/2018 Active cyanocobalamin (vit B-12) 1,000 mcg/mL injection solution RxNorm: 122382 Milliliter 09/11/2018 No longer Active cyanocobalamin (vit B-12) 1,000 mcg/mL injection solution RxNorm: 779022 Milliliter 08/29/2018 No longer Active cyanocobalamin (vit B-12) 1,000 mcg/mL injection solution RxNorm: 760511 Milliliter 08/15/2018 No longer Active Kenalog 40 mg/mL suspension for injection RxNorm: 2448544 Milliliter 08/15/2018 No longer Active cyanocobalamin (vit B-12) 1,000 mcg/mL injection solution RxNorm: 177117 Milliliter 08/01/2018 No longer Active cyanocobalamin (vit B-12) 1,000 mcg/mL injection solution RxNorm: 738655 Milliliter 07/19/2018 No longer Active cyanocobalamin (vit B-12) 1,000 mcg/mL injection solution RxNorm: 092127 Milliliter 07/04/2018 No longer Active cyanocobalamin (vit B-12) 1,000 mcg/mL injection solution RxNorm: 615059 Milliliter 06/20/2018 No longer Active cyanocobalamin (vit B-12) 1,000 mcg/mL injection solution RxNorm: 007918 Milliliter 06/06/2018 No longer Active cyanocobalamin (vit B-12) 1,000 mcg/mL injection solution RxNorm: 280552 Milliliter 05/24/2018 No longer Active cyanocobalamin (vit B-12) 1,000 mcg/mL injection solution RxNorm: 443611 Milliliter 05/09/2018 No longer Active cyanocobalamin (vit B-12) 1,000 mcg/mL injection solution RxNorm: 049119 Milliliter 04/26/2018 No longer Active cyanocobalamin (vit B-12) 1,000 mcg/mL injection solution RxNorm: 949886 Milliliter 04/12/2018 No longer Active cyanocobalamin (vit B-12) 1,000 mcg/mL injection solution RxNorm: 199604 Milliliter 03/30/2018 No longer Active cyanocobalamin (vit B-12) 1,000 mcg/mL injection solution RxNorm: 603788 Milliliter 03/16/2018 No longer Active cyanocobalamin (vit B-12) 1,000 mcg/mL injection solution RxNorm: 556431 Milliliter 03/02/2018 No longer Active cyanocobalamin (vit B-12) 1,000 mcg/mL injection solution RxNorm: 708585 Milliliter 02/08/2018 No longer Active cyanocobalamin (vit B-12) 1,000 mcg/mL injection solution RxNorm: 773414 Milliliter 01/24/2018 No longer Active cyanocobalamin (vit B-12) 1,000 mcg/mL injection solution RxNorm: 035539 Milliliter 01/10/2018 No longer Active cyanocobalamin (vit B-12) 1,000 mcg/mL injection solution RxNorm: 459301 Milliliter 12/27/2017 No longer Active cyanocobalamin (vit B-12) 1,000 mcg/mL injection solution RxNorm: 278291 1Milliliter 12/12/2017 No longer Active cyanocobalamin (vit B-12) 1,000 mcg/mL injection solution RxNorm: 749439 Milliliter 12/01/2017 No longer Active cyanocobalamin (vit B-12) 1,000 mcg/mL injection solution RxNorm: 522468 1Milliliter 11/17/2017 No longer Active cyanocobalamin (vit B-12) 1,000 mcg/mL injection solution RxNorm: 848189 1Milliliter 11/02/2017 No longer Active cyanocobalamin (vit B-12) 1,000 mcg/mL injection solution RxNorm: 797674 1Milliliter 10/20/2017 No longer Active cyanocobalamin (vit B-12) 1,000 mcg/mL injection solution RxNorm: 873211 Milliliter 10/06/2017 No longer Active cyanocobalamin (vit B-12) 1,000 mcg/mL injection solution RxNorm: 041487 Milliliter 09/21/2017 No longer Active Kenalog 40 mg/mL suspension for injection RxNorm: 7076321 Milliliter 09/15/2017 No longer Active cyanocobalamin (vit B-12) 1,000 mcg/mL injection solution RxNorm: 319123 Milliliter 09/07/2017 No longer Active cyanocobalamin (vit B-12) 1,000 mcg/mL injection solution RxNorm: 339434 Milliliter 08/24/2017 No longer Active cyanocobalamin (vit B-12) 1,000 mcg/mL injection solution RxNorm: 720435 Milliliter 07/06/2017 No longer Active Kenalog 40 mg/mL suspension for injection RxNorm: 7075508 1Milliliter 06/20/2017 No longer Active cyanocobalamin (vit B-12) 1,000 mcg/mL injection solution RxNorm: 102819 Milliliter 06/20/2017 No longer Active cyanocobalamin (vit B-12) 1,000 mcg/mL injection solution RxNorm: 971326 Milliliter 06/05/2017 No longer Active cyanocobalamin (vit B-12) 1,000 mcg/mL injection solution RxNorm: 807839 Milliliter 05/25/2017 No longer Active cyanocobalamin (vit B-12) 1,000 mcg/mL injection solution RxNorm: 680845 Milliliter 05/16/2017 No longer Active cyanocobalamin (vit B-12) 1,000 mcg/mL injection solution RxNorm: 593811 1Milliliter 05/01/2017 No longer Active cyanocobalamin (vit B-12) 1,000 mcg/mL injection solution RxNorm: 582887 Milliliter 04/18/2017 No longer Active cyanocobalamin (vit B-12) 1,000 mcg/mL injection solution RxNorm: 014836 Milliliter 04/06/2017 No longer Active cyanocobalamin (vit B-12) 1,000 mcg/mL injection solution RxNorm: 948430 Milliliter 03/22/2017 No longer Active cyanocobalamin (vit B-12) 1,000 mcg/mL injection solution RxNorm: 927028 Milliliter 03/09/2017 No longer Active cyanocobalamin (vit B-12) 1,000 mcg/mL injection solution RxNorm: 761976 Milliliter 02/23/2017 No longer Active cyanocobalamin (vit B-12) 1,000 mcg/mL injection solution RxNorm: 390906 Milliliter 02/09/2017 No longer Active cyanocobalamin (vit B-12) 1,000 mcg/mL injection solution RxNorm: 866301 Milliliter 01/23/2017 No longer Active cyanocobalamin (vit B-12) 1,000 mcg/mL injection solution RxNorm: 280197 Milliliter 01/10/2017 No longer Active cyanocobalamin (vit B-12) 1,000 mcg/mL injection solution RxNorm: 706928 1Milliliter 12/28/2016 No longer Active cyanocobalamin (vit B-12) 1,000 mcg/mL injection solution RxNorm: 510740 Milliliter 12/14/2016 No longer Active cyanocobalamin (vit B-12) 1,000 mcg/mL injection solution RxNorm: 983067 Milliliter 11/24/2016 No longer Active cyanocobalamin (vit B-12) 1,000 mcg/mL injection solution RxNorm: 514686 1Milliliter 11/07/2016 No longer Active cyanocobalamin (vit B-12) 1,000 mcg/mL injection solution RxNorm: 851869 Milliliter 10/24/2016 No longer Active cyanocobalamin (vit B-12) 1,000 mcg/mL injection solution RxNorm: 306917 1Milliliter 09/29/2016 No longer Active cyanocobalamin (vit B-12) 1,000 mcg/mL injection solution RxNorm: 502214 Milliliter 08/29/2016 No longer Active cyanocobalamin (vit B-12) 1,000 mcg/mL injection solution RxNorm: 223197 Milliliter 08/04/2016 No longer Active cyanocobalamin (vit B-12) 1,000 mcg/mL injection solution RxNorm: 466011 Milliliter 07/21/2016 No longer Active cyanocobalamin (vit B-12) 1,000 mcg/mL injection solution RxNorm: 826194 1Milliliter 07/05/2016 No longer Active cyanocobalamin (vit B-12) 1,000 mcg/mL injection solution RxNorm: 638148 1Milliliter 06/22/2016 No longer Active cyanocobalamin (vit B-12) 1,000 mcg/mL injection solution RxNorm: 439071 Milliliter 06/09/2016 No longer Active cyanocobalamin (vit B-12) 1,000 mcg/mL injection solution RxNorm: 148871 1Milliliter 05/25/2016 No longer Active cyanocobalamin (vit B-12) 1,000 mcg/mL injection solution RxNorm: 891832 Milliliter 05/10/2016 No longer Active cyanocobalamin (vit B-12) 1,000 mcg/mL injection solution RxNorm: 177225 Milliliter 04/26/2016 No longer Active cyanocobalamin (vit B-12) 1,000 mcg/mL injection solution RxNorm: 302265 Milliliter 04/11/2016 No longer Active cyanocobalamin (vit B-12) 1,000 mcg/mL injection solution RxNorm: 312279 Milliliter 03/31/2016 No longer Active cyanocobalamin (vit B-12) 1,000 mcg/mL injection solution RxNorm: 601219 1Milliliter 03/15/2016 No longer Active cyanocobalamin (vit B-12) 1,000 mcg/mL injection solution RxNorm: 298452 Milliliter 02/25/2016 No longer Active cyanocobalamin (vit B-12) 1,000 mcg/mL injection solution RxNorm: 689878 1Milliliter 02/02/2016 No longer Active cyanocobalamin (vit B-12) 1,000 mcg/mL injection solution RxNorm: 266641 Milliliter 01/18/2016 No longer Active cyanocobalamin (vit B-12) 1,000 mcg/mL injection solution RxNorm: 184232 Milliliter 12/29/2015 No longer Active cyanocobalamin (vit B-12) 1,000 mcg/mL injection solution RxNorm: 319912 Milliliter 12/08/2015 No longer Active cyanocobalamin (vit B-12) 1,000 mcg/mL injection solution RxNorm: 602007 Milliliter 11/23/2015 No longer Active cyanocobalamin (vit B-12) 1,000 mcg/mL injection solution RxNorm: 084340 Milliliter 11/11/2015 No longer Active cyanocobalamin (vit B-12) 1,000 mcg/mL injection solution RxNorm: 327508 1Milliliter 10/29/2015 No longer Active cyanocobalamin (vit B-12) 1,000 mcg/mL injection solution RxNorm: 687573 1Milliliter 10/12/2015 No longer Active cyanocobalamin (vit B-12) 1,000 mcg/mL injection solution RxNorm: 233879 1Milliliter 09/29/2015 No longer Active cyanocobalamin (vit B-12) 1,000 mcg/mL injection solution RxNorm: 694468 1Milliliter 09/17/2015 No longer Active cyanocobalamin (vit B-12) 1,000 mcg/mL injection solution RxNorm: 788769 1Milliliter 09/03/2015 No longer Active cyanocobalamin (vit B-12) 1,000 mcg/mL injection solution RxNorm: 675548 Milliliter 08/17/2015 No longer Active cyanocobalamin (vit B-12) 1,000 mcg/mL injection solution RxNorm: 898226 Milliliter 08/06/2015 No longer Active cyanocobalamin (vit B-12) 1,000 mcg/mL injection solution RxNorm: 019127 Milliliter 07/22/2015 No longer Active cyanocobalamin (vit B-12) 1,000 mcg/mL injection solution RxNorm: 284715 Milliliter 07/08/2015 No longer Active cyanocobalamin (vit B-12) 1,000 mcg/mL injection solution RxNorm: 766854 Milliliter 06/23/2015 No longer Active cyanocobalamin (vit B-12) 1,000 mcg/mL injection solution RxNorm: 213352 1Milliliter 06/08/2015 No longer Active cyanocobalamin (vit B-12) 1,000 mcg/mL injection solution RxNorm: 355272 Milliliter 05/27/2015 No longer Active cyanocobalamin (vit B-12) 1,000 mcg/mL injection solution RxNorm: 173675 1Milliliter 05/12/2015 No longer Active cyanocobalamin (vit B-12) 1,000 mcg/mL injection kit RxNorm: 297413 kit 04/30/2015 No longer Active cyanocobalamin (vit B-12) 1,000 mcg/mL injection solution RxNorm: 359564 Milliliter 04/16/2015 No longer Active cyanocobalamin (vit B-12) 1,000 mcg/mL injection solution RxNorm: 618283 Milliliter 04/02/2015 No longer Active cyanocobalamin (vit B-12) 1,000 mcg/mL injection solution RxNorm: 095466 Milliliter 03/18/2015 No longer Active cyanocobalamin (vit B-12) 1,000 mcg/mL injection solution RxNorm: 035341 Milliliter 03/03/2015 No longer Active cyanocobalamin (vit B-12) 1,000 mcg/mL injection solution RxNorm: 161303 Milliliter 02/18/2015 No longer Active cyanocobalamin (vit B-12) 1,000 mcg/mL injection solution RxNorm: 796389 Milliliter 02/04/2015 No longer Active cyanocobalamin (vit B-12) 1,000 mcg/mL injection solution RxNorm: 644303 Milliliter 01/22/2015 No longer Active cyanocobalamin (vit B-12) 1,000 mcg/mL injection solution RxNorm: 178066 Milliliter 01/08/2015 No longer Active cyanocobalamin (vit B-12) 1,000 mcg/mL injection solution RxNorm: 858904 Milliliter 12/25/2014 No longer Active cyanocobalamin (vit B-12) 1,000 mcg/mL injection solution RxNorm: 307584 Milliliter 12/10/2014 No longer Active cyanocobalamin (vit B-12) 1,000 mcg/mL injection solution RxNorm: 564230 Milliliter 11/26/2014 No longer Active cyanocobalamin (vit B-12) 1,000 mcg/mL injection kit RxNorm: 184228 Milliliter 11/12/2014 No longer Active cyanocobalamin (vit B-12) 1,000 mcg/mL injection solution RxNorm: 202519 Milliliter 10/28/2014 No longer Active Immunizations Vaccine [...] Code Item Item Code Result Date Microalbumin Irh854 MicroAlb <0.7 mg/dL 09/11/2018 Tsh Ord6 TSH (3rd IS) 6.48 uIU/mL 09/10/2018 Free T4 Ipr981 FREE T4 0.89 ng/dL 09/10/2018 Lipid Ord30 CHOL 177 mg/dL 09/10/2018 Lipid Ord30 HDL 64.0 mg/dl 09/10/2018 Lipid Ord30 TRIG 126 mg/dL 09/10/2018 Lipid Ord30 LDL 88 mg/dL 09/10/2018 Lipid Ord30 C/HDL 2.8 Ratio 09/10/2018 Comp Metabolic Tlt769 NA 139 mEq/L 09/10/2018 Comp Metabolic Dgo376 K 4.8 mEq/L 09/10/2018 Comp Metabolic Jxv252 CL 103 mEq/L 09/10/2018 Comp Metabolic Sig780 CO2 25.0 mEq/L 09/10/2018 Comp Metabolic Vim936 ANION GAP 16 09/10/2018 Comp Metabolic Pri412 GLUCOSE 104 mg/dL 09/10/2018 Comp Metabolic Yln090 Creat 1.0 mg/dL 09/10/2018 Comp Metabolic Fiz672 eGFR 54 ml/min/1.73m2 09/10/2018 Comp Metabolic Bdr826 BUN 25 mg/dL 09/10/2018 Comp Metabolic Msk716 B/C Ratio 24.3 Ratio 09/10/2018 Comp Metabolic Gqr275 CALCIUM 9.3 mg/dL 09/10/2018 Comp Metabolic Qid318 ALK PHOS 71 U/L 09/10/2018 Comp Metabolic Bht759 AST(SGOT) 25 U/L 09/10/2018 Comp Metabolic Caf923 ALT(SGPT) 28 U/L 09/10/2018 Comp Metabolic Lcj941 BILI T 0.7 mg/dL 09/10/2018 Comp Metabolic Ihz228 ALBUMIN 4.2 g/dL 09/10/2018 Comp Metabolic Kci749 TPRO 6.5 g/dL 09/10/2018 Comp Metabolic Lar629 GLOB 2.3 g/dL 09/10/2018 Comp Metabolic Mgd926 A/G Ratio 1.8 Ratio 09/10/2018 Comp Metabolic Arp193 Osmo 282 mOsmo 09/10/2018 Cbc With Differential [...] 27.7 pg 09/10/2018 Cbc With Differential Ord2 [place]% 8.8 % 09/10/2018 Cbc With Differential Ord2 [...] 2.24 K/ul 09/10/2018 Cbc With Differential Ord2 [place] ABS# 0.6 K/ul 09/10/2018 Cbc With Differential Ord2 [place] ABS# 0.2 K/ul 09/10/2018 Cbc With Differential Ord2 Baso ABS# 0.1 K/ul 09/10/2018 %Hba1C Fqj189 % HbA1c 98010- 6 6.0 % 09/10/2018 %Hba1C Xxy877 Gluc Ave 126 mg/dL 09/10/2018 Test(s) Not Perfromed [id number] Test(s) Not Performed Test(s) Not Performed. See Below: 09/10/2018 Test(s) Not Perfromed [id number] TEST NAME Microalbumin 09/10/2018 Test(s) Not Perfromed [id number] Rejection Reason Patient Unable to Void 09/10/2018 Test(s) Not Perfromed [id number] COMMENT Patient to deliver sample to the lab at a later date 09/10/2018 Test(s) Not Perfromed [id number] Director Of Category Management Favio Mulligan 09/10/2018 Lipid Ord30 CHOL 174 mg/dL 05/29/2018 Lipid Ord30 HDL 49.0 mg/dl 05/29/2018 Lipid Ord30 TRIG 200 mg/dL 05/29/2018 Lipid Ord30 LDL 85 mg/dL 05/29/2018 Lipid Ord30 C/HDL 3.6 Ratio 05/29/2018 Tsh Ord6 TSH (3rd IS) 3.20 uIU/mL 02/26/2018 Free T4 [id number] FREE T4 0.99 ng/dL 02/26/2018 Cbc With [...] 28.5 pg 02/26/2018 Cbc With Differential Ord2 [place]% 10.3 % 02/26/2018 Cbc With Differential Ord2 [...] 1.80 K/ul 02/26/2018 Cbc With Differential Ord2 [place] ABS# 0.7 K/ul 02/26/2018 Cbc With Differential Ord2 E[place] ABS# 0.2 K/ul 02/26/2018 Cbc With Differential Ord2 Baso ABS# 0.0 K/ul 02/26/2018 B12 Vvx859 B12 889.00 pg/ml 02/26/2018 Digoxin Ord9 DIGOXIN 0.7 NG/ML 11/23/2017 Comp Metabolic Oog674 NA 142 mEq/L 11/23/2017 Comp Metabolic Fcx065 K 4.9 mEq/L 11/23/2017 Comp Metabolic Nsx254 CL 112 mEq/L 11/23/2017 Comp Metabolic Sgg213 CO2 18.0 mEq/L 11/23/2017 Comp Metabolic Tda111 ANION GAP 17 11/23/2017 Comp Metabolic Kqj792 GLUCOSE 123 mg/dL 11/23/2017 Comp Metabolic Fli123 Creat 1.0 mg/dL 11/23/2017 Comp Metabolic Nfx597 eGFR 59 ml/min/1.73m2 11/23/2017 Comp Metabolic Rcz117 BUN 24 mg/dL 11/23/2017 Comp Metabolic Bmh151 B/C Ratio 25.0 Ratio 11/23/2017 Comp Metabolic Pux144 CALCIUM 9.4 mg/dL 11/23/2017 Comp Metabolic Woi532 ALK PHOS 56 U/L 11/23/2017 Comp Metabolic Cxr029 AST(SGOT) 17 U/L 11/23/2017 Comp Metabolic Elz514 ALT(SGPT) 16 U/L 11/23/2017 Comp Metabolic Qmu338 BILI T 0.7 mg/dL 11/23/2017 Comp Metabolic Hvo934 ALBUMIN 3.8 g/dL 11/23/2017 Comp Metabolic Yoc018 TPRO 6.2 g/dL 11/23/2017 Comp Metabolic Abz115 GLOB 2.4 g/dL 11/23/2017 Comp Metabolic Sls010 A/G Ratio 1.6 Ratio 11/23/2017 Comp Metabolic Ple805 Osmo 289 mOsmo 11/23/2017 Free T4 Wdo500 FREE T4 1.04 ng/dL 11/23/2017 %Hba1C Wrk030 % HbA1c 09210- 6 6.4 % 11/23/2017 %Hba1C Jzi525 Gluc Ave 137 mg/dL 11/23/2017 Lipid Ord30 CHOL 179 mg/dL 11/23/2017 Lipid Ord30 HDL 51.0 mg/dl 11/23/2017 Lipid Ord30 TRIG 134 mg/dL 11/23/2017 Lipid Ord30 LDL 101 mg/dL 11/23/2017 Lipid Ord30 C/HDL 3.5 Ratio 11/23/2017 Tsh Ord6 TSH (3rd IS) 1.00 uIU/mL 11/23/2017 Microalbumin Dpn180 MicroAlb <0.7 mg/dL 11/23/2017 Comp Metabolic Tac871 NA 141 mEq/L 01/23/2017 Comp Metabolic Oeo677 K 4.5 mEq/L 01/23/2017 Comp Metabolic Jeu581 CL 107 mEq/L 01/23/2017 Comp Metabolic Brh135 CO2 21.0 mEq/L 01/23/2017 Comp Metabolic Rgm015 ANION GAP 18 01/23/2017 Comp Metabolic Wpu157 GLUCOSE 138 mg/dL 01/23/2017 Comp Metabolic Vdr332 Creat 1.0 mg/dL 01/23/2017 Comp Metabolic Mik097 eGFR 56 ml/min/1.73m2 01/23/2017 Comp Metabolic Wje559 BUN 26 mg/dL 01/23/2017 Comp Metabolic Jec779 B/C Ratio 25.7 Ratio 01/23/2017 Comp Metabolic Hjm469 CALCIUM 9.0 mg/dL 01/23/2017 Comp Metabolic Nln912 ALK PHOS 37 U/L 01/23/2017 Comp Metabolic Idb838 AST(SGOT) 20 U/L 01/23/2017 Comp Metabolic Zam401 ALT(SGPT) 25 U/L 01/23/2017 Comp Metabolic Nmq801 BILI T 0.9 mg/dL 01/23/2017 Comp Metabolic Lui293 ALBUMIN 3.8 g/dL 01/23/2017 Comp Metabolic Plp080 TPRO 6.5 g/dL 01/23/2017 Comp Metabolic Pqc322 GLOB 2.7 g/dL 01/23/2017 Comp Metabolic Pvr410 A/G Ratio 1.4 Ratio 01/23/2017 Comp Metabolic Cfx793 Osmo 288 mOsmo 01/23/2017 Free T4 Arx019 FREE T4 1.05 ng/dL 01/23/2017 %Hba1C Rzr089 % HbA1c 14650- 6 6.1 % 01/23/2017 %Hba1C Ijo587 Gluc Ave 128 mg/dL 01/23/2017 Tsh Ord6 hTSH II 1.68 uIU/mL 01/23/2017 Culture Urine [id number] URINE CULTURE SEE NOTES 11/10/2016 Culture Urine [id number] Continued Results 11/10/2016 Urine Culture Ucult Complete [...] Ord15 CALCIUM 9.3 mg/dL 09/29/2016 Free T4 Cna913 FREE T4 0.99 ng/dL 09/07/2016 Cbc With [...] 30.0 pg 09/07/2016 Cbc With Differential Ord2 [place]% 9.8 % 09/07/2016 Cbc With Differential Ord2 [...] 1.75 K/ul 09/07/2016 Cbc With Differential Ord2 [place] ABS# 0.6 K/ul 09/07/2016 Cbc With Differential Ord2 [place] ABS# 0.1 K/ul 09/07/2016 Cbc With Differential Ord2 Baso ABS# 0.0 K/ul 09/07/2016 Tsh Ord6 hTSH II 1.41 uIU/mL 09/07/2016 Culture Urine [id number] URINE CULTURE SEE NOTES 06/27/2016 Lipid Ord30 CHOL 196 mg/dL 06/22/2016 Lipid Ord30 HDL 63.0 mg/dl 06/22/2016 Lipid Ord30 TRIG 154 mg/dL 06/22/2016 Lipid Ord30 LDL 102 mg/dL 06/22/2016 Lipid Ord30 C/HDL 3.1 Ratio 06/22/2016 Hepatic Ozs964 ALBUMIN 4.2 g/dL 06/22/2016 Hepatic Skq045 TPRO 7.0 g/dL 06/22/2016 Hepatic Wgw499 GLOB 2.8 g/dL 06/22/2016 Hepatic Bfe055 A/G Ratio 1.5 Ratio 06/22/2016 Hepatic Jsf278 ALK PHOS 54 U/L 06/22/2016 Hepatic Yto886 ALT(SGPT) 30 U/L 06/22/2016 Hepatic Xiz581 AST(SGOT) 24 U/L 06/22/2016 Hepatic Uxi004 BILI T 1.1 mg/dL 06/22/2016 Hepatic Apq548 BILI D 0.2 mg/dL 06/22/2016 Hepatic Zca278 BILI I 0.9 mg/dL 06/22/2016 Comp Metabolic Sol750 NA 139 mEq/L 06/14/2016 Comp Metabolic Ppa704 K 4.6 mEq/L 06/14/2016 Comp Metabolic Zng518 CL 108 mEq/L 06/14/2016 Comp Metabolic Qly195 CO2 22.0 mEq/L 06/14/2016 Comp Metabolic Mhe307 ANION GAP 14 06/14/2016 Comp Metabolic Mni913 GLUCOSE 114 mg/dL 06/14/2016 Comp Metabolic Kzl912 Creat 1.2 mg/dL 06/14/2016 Comp Metabolic Wjn798 eGFR 48 ml/min/1.73m2 06/14/2016 Comp Metabolic Ytu797 BUN 24 mg/dL 06/14/2016 Comp Metabolic Gro770 B/C Ratio 20.9 Ratio 06/14/2016 Comp Metabolic Wyp387 CALCIUM 9.9 mg/dL 06/14/2016 Comp Metabolic Rnw587 ALK PHOS 47 U/L 06/14/2016 Comp Metabolic Ygo020 AST(SGOT) 28 U/L 06/14/2016 Comp Metabolic Wlh404 ALT(SGPT) 32 U/L 06/14/2016 Comp Metabolic Ynd128 BILI T 0.9 mg/dL 06/14/2016 Comp Metabolic Gpi617 ALBUMIN 4.1 g/dL 06/14/2016 Comp Metabolic Zak133 TPRO 6.9 g/dL 06/14/2016 Comp Metabolic Dfv485 GLOB 2.8 g/dL 06/14/2016 Comp Metabolic Tte002 A/G Ratio 1.5 Ratio 06/14/2016 Comp Metabolic Akm999 Osmo 282 mOsmo 06/14/2016 Tsh Ord6 hTSH II 1.26 uIU/mL 06/14/2016 Free T4 Sms480 FREE T4 1.09 ng/dL 06/14/2016 Tsh Ord6 hTSH II 0.28 uIU/mL 02/02/2016 Digoxin Ord9 DIGOXIN 0.7 NG/ML 02/02/2016 Free T4 Xpe366 FREE T4 1.23 ng/dL 02/02/2016 Hepatic Krh190 ALBUMIN 4.0 g/dL 02/02/2016 Hepatic Otq621 TPRO 7.0 g/dL 02/02/2016 Hepatic Fpa960 GLOB 3.0 g/dL 02/02/2016 Hepatic Zaw971 A/G Ratio 1.3 Ratio 02/02/2016 Hepatic Fyo832 ALK PHOS 57 U/L 02/02/2016 Hepatic Mem197 ALT(SGPT) 62 U/L 02/02/2016 Hepatic Dht858 AST(SGOT) 54 U/L 02/02/2016 Hepatic Eyp856 BILI T 0.8 mg/dL 02/02/2016 Hepatic Ivn597 BILI D 0.2 mg/dL 02/02/2016 Hepatic Eow787 BILI I 0.6 mg/dL 02/02/2016 Urine Culture Ucult Preliminary No Growth Day 1 11/25/2015 Urine Culture Ucult Complete No Growth Day 2 11/25/2015 Hepatic Rte304 ALBUMIN 3.9 g/dL 11/11/2015 Hepatic Pda779 TPRO 7.0 g/dL 11/11/2015 Hepatic Phi918 GLOB 3.1 g/dL 11/11/2015 Hepatic Czm096 A/G Ratio 1.3 Ratio 11/11/2015 Hepatic Twl556 ALK PHOS 63 U/L 11/11/2015 Hepatic Szc059 ALT(SGPT) 107 U/L 11/11/2015 Hepatic Spu766 AST(SGOT) 101 U/L 11/11/2015 Hepatic Cbn017 BILI T 0.6 mg/dL 11/11/2015 Hepatic Ryx995 BILI D 0.1 mg/dL 11/11/2015 Hepatic Bed661 BILI I 0.5 mg/dL 11/11/2015 Comp Metabolic Ezw698 NA 138 mEq/L 10/29/2015 Comp Metabolic Jgm905 K 5.0 mEq/L 10/29/2015 Comp Metabolic Ztn425 CL 105 mEq/L 10/29/2015 Comp Metabolic Vhp014 CO2 23.0 mEq/L 10/29/2015 Comp Metabolic Vuz610 ANION GAP 15 10/29/2015 Comp Metabolic Yos554 GLUCOSE 105 mg/dL 10/29/2015 Comp Metabolic Ppy991 Creat 1.0 mg/dL 10/29/2015 Comp Metabolic Eyh232 eGFR 55 ml/min/1.73m2 10/29/2015 Comp Metabolic Fjk833 BUN 20 mg/dL 10/29/2015 Comp Metabolic Ykz321 B/C Ratio 19.4 Ratio 10/29/2015 Comp Metabolic Xve923 CALCIUM 8.8 mg/dL 10/29/2015 Comp Metabolic Knd656 ALK PHOS 56 U/L 10/29/2015 Comp Metabolic Rux243 AST(SGOT) 66 U/L 10/29/2015 Comp Metabolic Kns801 ALT(SGPT) 78 U/L 10/29/2015 Comp Metabolic Cau658 BILI T 0.7 mg/dL 10/29/2015 Comp Metabolic Eai869 ALBUMIN 3.6 g/dL 10/29/2015 Comp Metabolic Tok217 TPRO 6.6 g/dL 10/29/2015 Comp Metabolic Lfx260 GLOB 3.0 g/dL 10/29/2015 Comp Metabolic Aww407 A/G Ratio 1.2 Ratio 10/29/2015 Comp Metabolic Nbo680 Osmo 279 mOsmo 10/29/2015 Comp Metabolic Zjg572 NA 136 mEq/L 09/03/2015 Comp Metabolic Bbm623 K 4.4 mEq/L 09/03/2015 Comp Metabolic Hue208 CL 103 mEq/L 09/03/2015 Comp Metabolic Hxl030 CO2 24.0 mEq/L 09/03/2015 Comp Metabolic Qsa004 ANION GAP 13 09/03/2015 Comp Metabolic Wgn967 GLUCOSE 87 mg/dL 09/03/2015 Comp Metabolic Kji682 Creat 1.1 mg/dL 09/03/2015 Comp Metabolic Ftr065 eGFR 53 ml/min/1.73m2 09/03/2015 Comp Metabolic Mie959 BUN 17 mg/dL 09/03/2015 Comp Metabolic Qlc415 B/C Ratio 16.2 Ratio 09/03/2015 Comp Metabolic Ynk883 CALCIUM 9.0 mg/dL 09/03/2015 Comp Metabolic Axi322 ALK PHOS 55 U/L 09/03/2015 Comp Metabolic Ssz825 AST(SGOT) 83 U/L 09/03/2015 Comp Metabolic Crx234 ALT(SGPT) 126 U/L 09/03/2015 Comp Metabolic Vrr987 BILI T 0.9 mg/dL 09/03/2015 Comp Metabolic Ogc666 ALBUMIN 3.9 g/dL 09/03/2015 Comp Metabolic Fak781 TPRO 6.8 g/dL 09/03/2015 Comp Metabolic Hvv329 GLOB 2.9 g/dL 09/03/2015 Comp Metabolic Lnk097 A/G Ratio 1.4 Ratio 09/03/2015 Comp Metabolic Stt818 Osmo 273 mOsmo 09/03/2015 Total T3 Ord42 TT3 0.6 ng/ml 07/09/2015 Tsh Ord6 hTSH II 1.62 uIU/mL 07/09/2015 Total T3 Ord42 TT3 0.5 ng/ml 04/02/2015 Free T4 Osb466 FREE T4 1.23 ng/dL 04/02/2015 Tsh Ord6 [...] sounds 08/15/2018 None Full Exam - General 1995 Lymphatic neck nodes Overall: anterior cervical chain benign 08/15/2018 None Full Exam - General 1995 Lymphatic neck nodes Overall: posterior cervical chain [...] Procedure Codes Date THER/PROPH/DIAG INJ SC/IM CPT-4: 01154 09/27/2018 THER/PROPH/DIAG INJ SC/IM CPT-4: 71114 09/11/2018 THER/PROPH/DIAG INJ SC/IM CPT-4: 68256 08/29/2018 THER/PROPH/DIAG INJ SC/IM CPT-4: 85649 08/15/2018 TRIAMCINOLONE ACET INJ NOS CPT-4: J3301 08/15/2018 THER/PROPH/DIAG INJ SC/IM CPT-4: 90595 08/01/2018 VITAMIN B12 INJECTION CPT- 4: J3420 08/01/2018 THER/PROPH/DIAG INJ SC/IM CPT-4: 64184 07/19/2018 THER/PROPH/DIAG INJ SC/IM CPT-4: 36227 07/04/2018 THER/PROPH/DIAG INJ SC/IM CPT-4: 74635 06/20/2018 THER/PROPH/DIAG INJ SC/IM CPT-4: 12719 06/06/2018 VITAMIN B12 INJECTION CPT- 4: J3420 06/06/2018 THER/PROPH/DIAG INJ SC/IM CPT-4: 06363 05/24/2018 THER/PROPH/DIAG INJ SC/IM CPT-4: 05857 05/09/2018 THER/PROPH/DIAG INJ SC/IM CPT-4: 71709 04/26/2018 VITAMIN B12 INJECTION CPT- 4: J3420 04/26/2018 THER/PROPH/DIAG INJ SC/IM CPT-4: 41830 04/12/2018 THER/PROPH/DIAG INJ SC/IM CPT-4: 27359 03/30/2018 THER/PROPH/DIAG INJ SC/IM CPT-4: 25155 03/16/2018 VITAMIN B12 INJECTION CPT- 4: J3420 03/16/2018 ADMIN INFLUENZA VIRUS VAC CPT-4: G0008 03/16/2018 FLU VACC PRSV FREE INC ANTIG Formatting Model/CDA Sections, Assigned to/Nga Ojeda CPT-4: 41082Smbbefx 03/16/2018 THER/PROPH/DIAG INJ SC/IM CPT-4: 74260 03/02/2018 THER/PROPH/DIAG INJ SC/IM CPT-4: 18797 02/08/2018 THER/PROPH/DIAG INJ SC/IM CPT-4: 25059 01/24/2018 THER/PROPH/DIAG INJ SC/IM CPT-4: 08700 01/10/2018 THER/PROPH/DIAG INJ SC/IM CPT-4: 46211 12/27/2017 VITAMIN B12 INJECTION CPT- 4: J3420 12/27/2017 THER/PROPH/DIAG INJ SC/IM CPT-4: 98621 12/12/2017 THER/PROPH/DIAG INJ SC/IM CPT-4: 66639 12/01/2017 VITAMIN B12 INJECTION CPT- 4: J3420 12/01/2017 THER/PROPH/DIAG INJ SC/IM CPT-4: 44513 11/17/2017 THER/PROPH/DIAG INJ SC/IM CPT-4: 23705 11/02/2017 THER/PROPH/DIAG INJ SC/IM CPT-4: 73713 10/20/2017 THER/PROPH/DIAG INJ SC/IM CPT-4: 71907 10/06/2017 THER/PROPH/DIAG INJ SC/IM CPT-4: 80643 09/21/2017 TRIAMCINOLONE ACET INJ NOS CPT-4: J3301 09/15/2017 THER/PROPH/DIAG INJ SC/IM CPT-4: 03003 09/07/2017 THER/PROPH/DIAG INJ SC/IM CPT-4: 34986 08/24/2017 THER/PROPH/DIAG INJ SC/IM CPT-4: 32022 07/06/2017 THER/PROPH/DIAG INJ SC/IM CPT-4: 21682 06/20/2017 TRIAMCINOLONE ACET INJ NOS CPT-4: J3301 06/20/2017 PPPS, SUBSEQ VISIT CPT- 4: G0439 06/05/2017 THER/PROPH/DIAG INJ SC/IM CPT-4: 19673 06/05/2017 THER/PROPH/DIAG INJ SC/IM CPT-4: 12536 05/25/2017 VITAMIN B12 INJECTION CPT- 4: J3420 05/25/2017 THER/PROPH/DIAG INJ SC/IM CPT-4: 80809 05/16/2017 THER/PROPH/DIAG INJ SC/IM CPT-4: 22041 05/01/2017 THER/PROPH/DIAG INJ SC/IM CPT-4: 36506 04/18/2017 THER/PROPH/DIAG INJ SC/IM CPT-4: 90440 04/06/2017 ADMIN INFLUENZA VIRUS VAC CPT-4: G0008 03/22/2017 FLU VACC PRSV FREE INC ANTIG CPT-4: 86751 03/22/2017 THER/PROPH/DIAG INJ SC/IM CPT-4: 87504 03/09/2017 THER/PROPH/DIAG INJ SC/IM CPT-4: 96068 02/23/2017 THER/PROPH/DIAG INJ SC/IM CPT-4: 98258 02/09/2017 THER/PROPH/DIAG INJ SC/IM CPT-4: 60171 01/23/2017 THER/PROPH/DIAG INJ SC/IM CPT-4: 77604 01/10/2017 THER/PROPH/DIAG INJ SC/IM CPT-4: 49671 12/28/2016 THER/PROPH/DIAG INJ SC/IM CPT-4: 57325 12/14/2016 THER/PROPH/DIAG INJ SC/IM CPT-4: 32213 11/24/2016 URINALYSIS NONAUTO W/O SCOPE CPT-4: 63965 11/07/2016 THER/PROPH/DIAG INJ SC/IM CPT-4: 47187 11/07/2016 THER/PROPH/DIAG INJ SC/IM CPT-4: 48491 10/24/2016 THER/PROPH/DIAG INJ SC/IM CPT-4: 10472 09/29/2016 THER/PROPH/DIAG INJ SC/IM CPT-4: 56295 08/29/2016 THER/PROPH/DIAG INJ SC/IM CPT-4: 32171 08/04/2016 THER/PROPH/DIAG INJ SC/IM CPT-4: 97014 07/21/2016 THER/PROPH/DIAG INJ SC/IM CPT-4: 03239 07/05/2016 THER/PROPH/DIAG INJ SC/IM CPT-4: 69908 06/22/2016 URINALYSIS NONAUTO W/O SCOPE CPT-4: 79575 06/22/2016 THER/PROPH/DIAG INJ SC/IM CPT-4: 10683 06/09/2016 PPPS, SUBSEQ VISIT CPT- 4: G0439 05/30/2016 ADMIN PNEUMOCOCCAL VACCINE SNOMED CT: 69312810 CPT-4: G0009 05/25/2016 Pneumococcal Polysaccharide Vaccine, 23-Valent, Ad CPT-4: 99629 05/25/2016 THER/PROPH/DIAG INJ SC/IM CPT-4: 68752 05/25/2016 THER/PROPH/DIAG INJ SC/IM CPT-4: 95704 05/10/2016 TRIAMCINOLONE ACET INJ NOS CPT-4: J3301 04/26/2016 VITAMIN B12 INJECTION CPT- 4: J3420 04/26/2016 THER/PROPH/DIAG INJ SC/IM CPT-4: 89854 04/11/2016 THER/PROPH/DIAG INJ SC/IM CPT-4: 06819 03/31/2016 ADMIN INFLUENZA VIRUS VAC CPT-4: G0008 03/15/2016 FLU VACC 4 STEPHANIE 3 YRS PLUS IM SNOMED CT: 04307963 CPT-4: 57116 03/15/2016 THER/PROPH/DIAG INJ SC/IM CPT-4: 54483 02/25/2016 THER/PROPH/DIAG INJ SC/IM CPT-4: 71707 02/02/2016 THER/PROPH/DIAG INJ SC/IM CPT-4: 95433 01/18/2016 VITAMIN B12 INJECTION CPT- 4: J3420 12/29/2015 THER/PROPH/DIAG INJ SC/IM CPT-4: 00057 12/29/2015 THER/PROPH/DIAG INJ SC/IM CPT-4: 85480 12/08/2015 THER/PROPH/DIAG INJ SC/IM CPT-4: 64530 11/23/2015 URINALYSIS NONAUTO W/O SCOPE CPT-4: 46818 11/23/2015 THER/PROPH/DIAG INJ SC/IM CPT-4: 78538 11/11/2015 THER/PROPH/DIAG INJ SC/IM CPT-4: 00924 10/29/2015 THER/PROPH/DIAG INJ SC/IM CPT-4: 52791 10/12/2015 VITAMIN B12 INJECTION CPT- 4: J3420 10/12/2015 THER/PROPH/DIAG INJ SC/IM CPT-4: 73761 09/29/2015 THER/PROPH/DIAG INJ SC/IM CPT-4: 64433 09/17/2015 THER/PROPH/DIAG INJ SC/IM CPT-4: 09536 09/03/2015 THER/PROPH/DIAG INJ SC/IM CPT-4: 02838 08/17/2015 THER/PROPH/DIAG INJ SC/IM CPT-4: 74151 08/06/2015 THER/PROPH/DIAG INJ SC/IM CPT-4: 89132 07/22/2015 THER/PROPH/DIAG INJ SC/IM CPT-4: 23377 07/08/2015 THER/PROPH/DIAG INJ SC/IM CPT-4: 08405 06/23/2015 THER/PROPH/DIAG INJ SC/IM CPT-4: 57982 06/08/2015 THER/PROPH/DIAG INJ SC/IM CPT-4: 90140 05/27/2015 DESTRUCT PREMALG LESION CPT-4: 70443 05/19/2015 DESTRUCT PREMALG LES 2-14 CPT-4: 14578 05/19/2015 THER/PROPH/DIAG INJ SC/IM CPT-4: 44910 05/12/2015 VITAMIN B12 INJECTION CPT- 4: J3420 05/12/2015 THER/PROPH/DIAG INJ SC/IM CPT-4: 95204 04/30/2015 VITAMIN B12 INJECTION CPT- 4: J3420 04/30/2015 THER/PROPH/DIAG INJ SC/IM CPT-4: 60958 04/16/2015 THER/PROPH/DIAG INJ SC/IM CPT-4: 93926 04/02/2015 VITAMIN B12 INJECTION CPT- 4: J3420 04/02/2015 THER/PROPH/DIAG INJ SC/IM CPT-4: 61014 03/18/2015 THER/PROPH/DIAG INJ SC/IM CPT-4: 93122 03/03/2015 THER/PROPH/DIAG INJ SC/IM CPT-4: 98968 02/18/2015 THER/PROPH/DIAG INJ SC/IM CPT-4: 13174 02/04/2015 VITAMIN B12 INJECTION CPT- 4: J3420 02/04/2015 THER/PROPH/DIAG INJ SC/IM CPT-4: 03004 01/22/2015 THER/PROPH/DIAG INJ SC/IM CPT-4: 30786 01/08/2015 VITAMIN B12 INJECTION CPT- 4: J3420 01/08/2015 THER/PROPH/DIAG INJ SC/IM CPT-4: 73737 12/25/2014 VITAMIN B12 INJECTION CPT- 4: J3420 12/25/2014 THER/PROPH/DIAG INJ SC/IM CPT-4: 74322 12/10/2014 VITAMIN B12 INJECTION CPT- 4: J3420 12/10/2014 THER/PROPH/DIAG INJ SC/IM CPT-4: 08268 11/26/2014 VITAMIN B12 INJECTION CPT- 4: J3420 11/26/2014 THER/PROPH/DIAG INJ SC/IM CPT-4: 98266 11/12/2014 VITAMIN B12 INJECTION CPT- 4: J3420 11/12/2014 THER/PROPH/DIAG INJ SC/IM CPT-4: 35249 10/28/2014 Vital Signs Date Vital 09/05/2018 Blood Pressure 1: 122/70 Code: 8480-6 BMI: 27.1 Code: 58173-1 Heart Rate 1: 90 bpm Height: 5'6" SpO2: 97% Weight: 168 lbs 08/15/2018 Blood Pressure 1: 142/76 Code: 8480-6 BMI: 27.4 Code: 64974-7 Heart Rate 1: 74 bpm Height: 5'6" SpO2: 95% Temperature: 36.7 (C) / 98.1 (F) Weight: 170 lbs 05/03/2018 Blood Pressure 1: 140/70 Code: 8480-6 BMI: 26.0 Code: 04763-2 Heart Rate 1: 70 bpm Height: 5'6" SpO2: 94% Weight: 161 lbs 04/26/2018 Height: 5'6" 02/26/2018 Blood Pressure 1: 130/72 Code: 8480-6 BMI: 27.9 Code: 45060-6 Heart Rate 1: 72 bpm Height: 5'6" SpO2: 93% Weight: 173 lbs 12/12/2017 Blood Pressure 1: 126/74 Code: 8480-6 BMI: 27.4 Code: 04292-1 Heart Rate 1: 83 bpm Height: 5'6" SpO2: 98% Weight: 170 lbs 12/04/2017 Blood Pressure 1: 104/68 Code: 8480-6 BMI: 28.2 Code: 55860-2 Heart Rate 1: 85 bpm Height: 5'6" SpO2: 95% Weight: 175 lbs 11/20/2017 Blood Pressure 1: 130/68 Code: 8480-6 BMI: 28.4 Code: 48224-5 Heart Rate 1: 80 bpm Height: 5'6" SpO2: 99% Weight: 176 lbs 11/02/2017 Height: 5'6" 09/15/2017 Blood Pressure 1: 134/74 Code: 8480-6 BMI: 28.4 Code: 47075-5 Heart Rate 1: 88 bpm Height: 5'6" SpO2: 98% Weight: 176 lbs 09/07/2017 Blood Pressure 1: 124/64 Code: 8480-6 Heart Rate 1: 90 bpm Height: SpO2: 97% Weight: 08/30/2017 Blood Pressure 1: 140/76 Code: 8480-6 BMI: 28.4 Code: 05351-8 Heart Rate 1: 90 bpm Height: 5'6" SpO2: 94% Weight: 176 lbs 07/06/2017 Blood Pressure 1: 132/66 Code: 8480-6 BMI: 29.4 Code: 48969-7 Heart Rate 1: 85 bpm Height: 5'6" SpO2: 97% Weight: 182 lbs 06/20/2017 Blood Pressure 1: 134/86 Code: 8480-6 Heart Rate 1: 90 bpm Height: SpO2: 98% Weight: 06/05/2017 BMI: 29.1 Code: 35095-1 Height: 5'6" Weight: 180 lbs 05/25/2017 Blood Pressure 1: 126/76 Code: 8480-6 BMI: 29.1 Code: 16860-9 Heart Rate 1: 77 bpm Height: 5'6" SpO2: 97% Weight: 180 lbs 03/23/2017 Blood Pressure 1: 142/84 Code: 8480-6 BMI: 29.1 Code: 67106-1 Heart Rate 1: 91 bpm Height: 5'6" SpO2: 97% Weight: 180 lbs 01/23/2017 Blood Pressure 1: 150/90 Code: 8480-6 BMI: 29.9 Code: 06998-5 Heart Rate 1: 81 bpm Height: 5'6" SpO2: 97% Weight: 185 lbs 11/02/2016 Blood Pressure 1: 148/78 Code: 8480-6 BMI: 29.7 Code: 79760-8 Heart Rate 1: 87 bpm Height: 5'6" SpO2: 97% Weight: 184 lbs 09/29/2016 Blood Pressure 1: 128/78 Code: 8480-6 BMI: 29.7 Code: 68567-7 Heart Rate 1: 78 bpm Height: 5'6" SpO2: 98% Weight: 184 lbs 07/26/2016 Blood Pressure 1: 138/72 Code: 8480-6 BMI: 30.0 Code: 50519-4 Heart Rate 1: 85 bpm Height: 5'6" SpO2: 97% Weight: 186 lbs 05/30/2016 Blood Pressure 1: 132/76 Code: 8480-6 BMI: 30.0 Code: 04862-1 Heart Rate 1: 80 bpm Height: 5'6" SpO2: 98% Waist Measure (cm): 99 cm Weight: 186 lbs 05/25/2016 Blood Pressure 1: 132/76 Code: 8480-6 BMI: 30.0 Code: 47025-0 Heart Rate 1: 80 bpm Height: 5'6" SpO2: 96% Weight: 186 lbs 02/25/2016 Blood Pressure 1: 110/64 Code: 8480-6 Heart Rate 1: 82 bpm Height: SpO2: 96% Weight: 01/25/2016 Blood Pressure 1: 118/70 Code: 8480-6 BMI: 30.0 Code: 27545-9 Heart Rate 1: 78 bpm Height: 5'6" SpO2: 97% Weight: 186 lbs 11/11/2015 Blood Pressure 1: 128/82 Code: 8480-6 BMI: 29.2 Code: 95818-4 Heart Rate 1: 86 bpm Height: 5'6" SpO2: 96% Temperature: 36.4 (C) / 97.6 (F) Weight: 181 lbs 10/12/2015 Blood Pressure 1: 118/70 Code: 8480-6 BMI: 29.2 Code: 98455-5 Heart Rate 1: 81 bpm Height: 5'6" SpO2: 95% Weight: 181 lbs 09/03/2015 Blood Pressure 1: 138/78 Code: 8480-6 BMI: 29.9 Code: 18187-6 Heart Rate 1: 88 bpm Height: 5'6" SpO2: 97% Weight: 185 lbs 05/19/2015 Blood Pressure 1: 146/78 Code: 8480-6 BMI: 30.0 Code: 30241-3 Heart Rate 1: 66 bpm Height: 5'6" SpO2: 97% Weight: 186 lbs 05/12/2015 Blood Pressure 1: 120/70 Code: 8480-6 BMI: 29.9 Code: 68737-9 Heart Rate 1: 89 bpm Height: 5'6" SpO2: 95% Weight: 185 lbs 01/13/2015 Blood Pressure 1: 140/90 Code: 8480-6 BMI: 30.3 Code: 60137-7 Heart Rate 1: 84 bpm Height: 5'6" SpO2: 95% Weight: 188 lbs 12/16/2014 Blood Pressure 1: 140/82 Code: 8480-6 BMI: 29.5 Code: 91683-3 Heart Rate 1: 86 bpm Height: 5'6" [...] data Encounters Encounter Performer Location Codes Date ([id number]) [id number] EST. PATIENT, LEVEL IV Diagnosis: Essential (primary) hypertension[ICD10: I10] Diagnosis: Type 2 diabetes mellitus without complications[ICD10: E11.9] Diagnosis: Atrophy of thyroid (acquired)[ICD10: E03.4] Diagnosis: Other vitamin B12 deficiency anemias[ICD10: D51.8] [facility] CPT-4: 60599 09/05/2018 [id number] EST. PATIENT, LEVEL IV Diagnosis: Acute bronchitis due to other specified organisms[ICD10: J20.8] Diagnosis: Cough[ICD10: R05] Diagnosis: 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 factor deficiency[ICD10: D51.0] [facility] CPT-4: 63839 08/15/2018 [id number]) 01808 EST. PATIENT, LEVEL IV Diagnosis: Essential (primary) hypertension[ICD10: I10] Diagnosis: Type 2 diabetes mellitus without complications[ICD10: E11.9] Yarely Vega MD, [facility] CPT-4: 54644 05/03/2018 ([id number]) 48551 EST. PATIENT, LEVEL III Diagnosis: Pain in left shoulder[ICD10: M25.512] Diagnosis: Pain in right shoulder[ICD10: M25.511] Yarely Vega MD, [facility] CPT-4: 19056 02/26/2018 ([id number]) 36421 EST. PATIENT, LEVEL III Diagnosis: Nausea[ICD10: R11.0] Diagnosis: Cough[ICD10: R05] Diagnosis: 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 factor deficiency[ICD10: D51.0] Janet Vega MD, [facility] CPT-4: 96264 12/12/2017 ([id number]) 58323 EST. PATIENT, LEVEL IV Diagnosis: Acute bronchitis due to Hemophilus influenzae[ICD10: J20.1] Diagnosis: Cough[ICD10: R05] Yarely Vega MD, [facility] CPT-4: 16731 12/04/2017 ([id number]) 89580 EST. PATIENT, LEVEL IV Diagnosis: Essential (primary) hypertension[ICD10: I10] Diagnosis: Cough[ICD10: R05] Diagnosis: Chronic atrial fibrillation[ICD10: I48.2] Yarely Vega MD, [facility] CPT-4: 29768 11/20/2017 ([id number]) 19699 EST. PATIENT, LEVEL III Diagnosis: Cough[ICD10: R05] Diagnosis: Acute upper respiratory infection, unspecified[ICD10: J06.9] Janet Vega MD, [facility] CPT-4: 63926 09/15/2017 62295 EST. PATIENT, LEVEL III Diagnosis: Laceration without foreign body of right forearm, initial encounter[ICD10: S51.811A] Diagnosis: Other vitamin B12 deficiency anemias[ICD10: D51.8] Brianna Vega MD, [facility] CPT-4: 37110 09/07/2017 ([id number]) 85443 EST. PATIENT, LEVEL IV Diagnosis: Chronic atrial fibrillation[ICD10: I48.2] Diagnosis: Other allergic rhinitis[ICD10: J30.89] Diagnosis: Encounter for therapeutic drug level monitoring[ICD10: Z51.81] Yarely Vega MD, [facility] CPT-4: 19106 08/30/2017 [id number]) 65217 EST. PATIENT, LEVEL IV Diagnosis: Atrophy of thyroid (acquired)[ICD10: E03.4] Diagnosis: Cough[ICD10: R05] Diagnosis: Laceration without foreign body of left forearm, initial encounter[ICD10: S51.812A] Diagnosis: Candidiasis of skin and nail[ICD10: B37.2] Diagnosis: Other vitamin B12 deficiency anemias[ICD10: D51.8] Diagnosis: Slow transit constipation[ICD10: K59.01] Yarely Vega MD, [facility] CPT-4: 45503 07/06/2017 [id number] EST. PATIENT, LEVEL III Diagnosis: Other vitamin B12 deficiency anemias[ICD10: D51.8] Diagnosis: Acute laryngopharyngitis[ICD10: J06.0] Diagnosis: Other allergic rhinitis[ICD10: J30.89] Brianna Vega MD, [facility] CPT- 4: 68172 06/20/2017 ([id number]) 98850 EST. PATIENT, LEVEL IV Diagnosis: Essential (primary) hypertension[ICD10: I10] Diagnosis: Chronic atrial fibrillation[ICD10: I48.2] Diagnosis: Atrophy of thyroid (acquired)[ICD10: E03.4] Diagnosis: 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 factor deficiency[ICD10: D51.0] Yarely Vega MD, [facility] CPT-4: 08878 05/25/2017 ([id number]) 25074 EST. PATIENT, LEVEL IV Diagnosis: Type 2 diabetes mellitus without complications[ICD10: E11.9] Diagnosis: Atrophy of thyroid (acquired)[ICD10: E03.4] Diagnosis: Chest pain on breathing[ICD10: R07.1] Diagnosis: Chondrocostal junction syndrome [Tietze][ICD10: M94.0] Diagnosis: Other fatigue[ICD10: R53.83] Yarely Vega MD, [facility] CPT-4: 85504 03/23/2017 [id number]) 40983 EST. PATIENT, LEVEL IV Diagnosis: Type 2 diabetes mellitus without complications[ICD10: E11.9] Diagnosis: Essential (primary) hypertension[ICD10: I10] Diagnosis: Headache[ICD10: R51] Diagnosis: Atrophy of thyroid (acquired)[ICD10: E03.4] Diagnosis: Vitamin B12 deficiency anemia, unspecified[ICD10: D51.9] Yarely Vega MD, [facility] CPT-4: 14969 01/23/2017 [id number] EST. PATIENT, LEVEL III Diagnosis: Low back pain[ICD10: M54.5] Diagnosis: Pain in thoracic spine[ICD10: M54.6] Brianna Vega MD, [facility] CPT- 4: 51472 11/02/2016 ([id number]) 01344 EST. PATIENT, LEVEL IV Diagnosis: Essential (primary) hypertension[ICD10: I10] Diagnosis: Other vitamin B12 deficiency anemias[ICD10: D51.8] Diagnosis: Generalized abdominal pain[ICD10: R10.84] Yarely Vega MD [facility] CPT-4: 66733 09/29/2016 ([id number]) 43026 EST. PATIENT, LEVEL IV Diagnosis: Essential (primary) hypertension[ICD10: I10] Yarely Vega MD, [facility] CPT-4: 44703 07/26/2016 ([id number]) 33965 EST. 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 PATIENT, LEVEL III Diagnosis: Other chest pain[ICD10: R07.89] Diagnosis: Other vitamin B12 deficiency anemias[ICD10: D51.8] Brianna Vega MD, [facility] CPT-4: 56589 02/25/2016 ([id number]) 00919 EST. 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 PATIENT, LEVEL III Diagnosis: Other vitamin B12 deficiency anemias[ICD10: D51.8] Diagnosis: Acute nasopharyngitis [common cold][ICD10: J00] Diagnosis: Other allergic rhinitis[ICD10: J30.89] Brianna Vega MD, [facility] CPT- 4: 28726 11/11/2015 23219 17742 EST. PATIENT, LEVEL IV Diagnosis: Essential tremor[ICD10: G25.0] Diagnosis: Chronic fatigue, unspecified[ICD10: R53.82] Diagnosis: Other hypersomnia[ICD10: G47.19] Diagnosis: Essential (primary) hypertension[ICD10: I10] Yarely Vega MD, [facility] CPT-4: 37492 10/12/2015 [id number]) 05322 EST. PATIENT, LEVEL IV Diagnosis: Essential (primary) hypertension[ICD10: I10] Diagnosis: Chronic atrial fibrillation[ICD10: I48.2] Diagnosis: Abnormal levels of other serum enzymes[ICD10: R74.8] Diagnosis: Type 2 diabetes mellitus without complications[ICD10: E11.9] Diagnosis: Vitamin B12 deficiency anemia, unspecified[ICD10: D51.9] Yarely Vega MD, [facility] CPT-4: 03079 09/03/[id number]) 99315 EST. PATIENT, LEVEL III Diagnosis: Nausea[ICD10: R11.0] Diagnosis: Essential tremor[ICD10: G25.0] Diagnosis: Actinic keratosis[ICD10: L57.0] Yarely Vega MD, [facility] CPT-4: 64104 05/19/2015 [id number]) 48532 EST. PATIENT, LEVEL IV Diagnosis: Vitamin B12 deficiency anemia, unspecified[ICD10: D51.9] Diagnosis: Chronic atrial fibrillation[ICD10: I48.2] Diagnosis: Headache[ICD10: R51] Diagnosis: Chronic fatigue, unspecified[ICD10: R53.82] Diagnosis: Cervicalgia[ICD10: M54.2] Yarely Vega MD, [facility] CPT-4: 51084 05/12/2015 42574 96544 EST. PATIENT, LEVEL IV Diagnosis: ESSENTIAL HYPERTENSION[ICD9: 401.9] Diagnosis: Afib[ICD9: 427.31] Diagnosis: Anxiety[ICD9: 300.00] Diagnosis: Insomnia[ICD9: 780.52] [facility] CPT-4: 10847 01/13/2015 ([id number]) OFFICE VISIT, NEW - LEVEL 4 Diagnosis: Hypothyroidism[ICD9: 244.9] Diagnosis: DIABETES TYPE II[ICD9: 250.00] Diagnosis: ESSENTIAL HYPERTENSION[ICD9: 401.9] Diagnosis: Afib[ICD9: 427.31] Diagnosis: Anxiety[ICD9: 300.00] Diagnosis: B12 deficiency[ICD9: 266.2] Janet Vega MD, [facility] CPT-4: 96981 12/16/2014 Plan of Care Planned Activity Notes Codes Status Date Patient Education: Patient Medication Summary Completed 09/27/2018 [phone] ([facility] Moderate 09/11/2018 Appointment: Injection 09/11/2018 [...] of control. 09/05/2018 Appointment: [phone] (15 min) Moderate 09/05/2018 Patient Education: Patient [...] Completed 06/20/2018 Appointment: [phone] (30 min) Complex 06/07/2018 Appointment: Injection 06/06/2018 Patient Education: Patient Medication Summary Completed 06/06/2018 Appointment: [phone] (15 min) Moderate 05/31/2018 Appointment: Injection 05/24/2018 [...] flonase 05/03/2018 Appointment: [phone] [place] (15 min) Moderate 05/03/2018 Patient [...] surgical intervention. 02/26/2018 Appointment: Yarely [facility]ega [facility] [place] (15 min) Moderate 02/26/2018 Patient Education: Patient Medication Summary Completed 02/26/2018 Care Plan: Referral Order SNOMED-CT : [id number] Pending 02/26/2018 Appointment: Injection 02/08/2018 Patient Education: Patient Medication Summary Completed 02/08/2018 Appointment: Injection 01/24/2018 Patient Education: Patient Medication Summary Completed 01/24/2018 Appointment: Injection 01/10/2018 Patient Education: Patient Medication Summary Completed 01/10/2018 Appointment: Injection 12/27/2017 Patient Education: Patient Medication Summary Completed 12/27/2017 Appointment: [facility] [place] (15 min) Moderate 12/26/2017 Visit Plan: Dqgfdr-ylwpbcbgi-ihbyvgpt protonix-follow up with Dr Navarro as scheduled Cough-recent bronchitis-symptoms improved-call if symptoms do not completely resolve 12/12/2017 Appointment: Janet Fam WPtel: [phone] [phone] (15 min) Moderate 12/12/2017 Patient Education: Patient Medication Summary Completed 12/12/2017 Visit Plan: Bronchitis - acute case of bronchitis identified. Pt has been given antibiotics, breathing treatments as appropriate, and pt has been instructed to call if symptoms are not improved, or if symptoms acutely worsen. Cough - rx for antibiotics as well as cough medication. 12/04/2017 Appointment: [phone] (15 min) Moderate 12/04/2017 Patient Education: Patient [...] Fatigue/malaise -Pt was advsied to ask the [facility] the following: ask the heart doctor if [...] becoming uncontrolled. 11/20/2017 Appointment: [phone] (15 min) Moderate 11/20/2017 Patient Education: Patient [...] worse. 09/15/2017 Appointment: Janet Fam WPtel: [phone] [phone] [place] (15 min) Moderate 09/15/2017 Patient Education: Patient Medication Summary Completed 09/15/2017 Appointment: Yarely Vega WPtel: [phone] [facility] [place] (15 min) Moderate 09/11/2017 Visit Plan: Skin tear and Cellulitis - The patient was instructed in appropriate wound care. The patient was instructed to use the antibiotic ointment as per RX. The patient is to call for any change in symptoms, increase in size of the lesion, increase in pain, worsening redness, warmth, discharge. 09/07/2017 Appointment: Brianna Otoole WPtel: [phone] [facility] [place] (10 min) Simple 09/07/2017 Patient Education: Patient Medication Summary Completed 09/07/2017 Visit Plan: Lipoma - left ankle - talk to dr. barnes about possible surgery/laser for treatment of lipoma. Fatigue/malaise -Pt was advsied to ask the [facility] the following: ask the heart doctor if there is an alternative to the amiodarone - you may be having side effects from the medication causing you to have pruritus (itching) and feeling like you have body aches, muscle aches, joint pain, fatigue, weight loss (decreased appetite), and pneumonia like symptoms. Congestion - claritin 10mg daily. 08/30/2017 Appointment: Yarely Vega WPtel: [phone] [facility] [place] (15 min) Moderate 08/30/2017 Patient Education: Patient Medication Summary Completed 08/30/2017 Appointment: Injection 08/24/2017 Appointment: [phone] (15 min) Moderate 08/24/2017 Patient Education: Patient [...] and mucinex 07/06/2017 Appointment: [facility]: [phone] (15 min) Moderate 07/06/2017 Patient Education: Patient [...] spray. 06/20/2017 Appointment: Brianna Otoole WPtel: [phone] [facility] (15 min) Moderate 06/20/2017 Patient Education: Patient [...] Appointment: Bucky 06/05/2017 Appointment: Brianna Otoole WPtel: [facility] [facility] [place] - Annual Wellness Visit 06/05/2017 Patient Education: [...] q 3 months or q 6 m [facility] based on previous levels of control. 05/25/2017 Appointment: [facility]: [phone] (15 min) Moderate 05/25/2017 Patient Education: [...] wall. Fatigue - pt to discuss with [facility] about the possibility of amiodarone causing her fatigue/malaise. 03/23/2017 Appointment: [facility]: [phone] (15 min) Moderate 03/23/2017 Patient Education: [...] daily. 01/23/2017 Appointment: [facility]: [phone] (15 min) Moderate 01/23/2017 Patient Education: [...] improve. 11/02/2016 [facility]ment[phone] [place] ([facility] min) Moderate 11/02/2016 Patient Education: [...] 09/29/2016 Appointment: [facility]: [phone] [place] (15 min) Moderate 09/29/2016 Patient Education: Patient Medication Summary Completed 09/29/2016 Appointment: [facility]: [phone] [place] (15 min) Moderate 09/27/2016 Appointment: Yarely Vega WPtel: [phone] [facility] [place] (15 min) Moderate 09/20/2016 Appointment: [facility]: [phone] [facility] [place] (15 min) Moderate 09/20/2016 Patient Education: Patient Medication Summary Completed 09/06/2016 Appointment: [facility]: [phone] (15 min) Moderate 08/30/2016 Appointment: Injection 08/29/2016 [...] acute concerns. 07/26/2016 Appointment: Gary [phone] (15 min) Moderate 07/26/2016 Patient Education: Patient [...] surrogate. 05/30/2016 Appointment: [phone] [facility] [place] - Annual Wellness Visit 05/30/2016 Patient Education: [...] months based on previous levels of control. paulette bautista - take topamax at bedtime 05/25/2016 Appointment: [phone] (15 min) Moderate 05/25/2016 Patient Education: Patient Medication Summary Completed 05/25/2016 Patient Education: Obesity Completed 05/25/2016 Care Plan: Referral Order SNOMED-CT : [id number] Pending 05/25/2016 Appointment: Injection 05/10/2016 Patient Education: Patient Medication Summary Completed 05/10/2016 Appointment: Injection 04/26/2016 Patient Education: Patient Medication Summary Completed 04/26/2016 Appointment: Injection 04/11/2016 Patient Education: Patient Medication Summary Completed 04/11/2016 Appointment: Injection 03/31/2016 Patient Education: Patient Medication Summary Completed 03/31/2016 Patient Education: Patient Medication Summary Completed 03/22/2016 Care Plan[facility]-7 Pending 03/22/2016 Appointment: Injection 03/15/2016 Patient Education: [...] concerns. 02/25/2016 Appointment: [facility]: [phone] [place] (15 min) Moderate 02/25/2016 Patient Education: [...] case with Faiza's daughter who had left the medical center. She is interested in looking at assisted living facilities for her mom as Faiza's family is for assisted living placement sooner rather than later. 10/12/2015 Appointment: [phone] (15 min) Moderate 10/12/2015 Patient Education: [...] 08/17/2015 Appointment: [facility]: [phone] (15 min) Moderate 08/11/2015 Appointment: Injection [...] skin lesions x 2 05/19/2015 Appointment: Yarely Vgea [facility]Ptel: [facility] (30 min) [facility] 05/19/2015 Patient Education: Patient Medication Summary [...] alprazolam. 01/13/2015 Appointment: [phone] (15 min) Moderate 01/13/2015 Patient Education: [...] current medications. 12/16/2014 Appointment: [facility]: [phone] [place] ([place]) New Patient 12/16/2014 Patient Education: [...] Cat Referral Appointment Requested Instructions Comment . Chest Pain - pt states that she has had chest pain off an on, she states that it goes down her left arm and to her back. She states that she has had some nausea. Will check labs and order EKG - pt is to notify clinic if symptoms return, or with any concerns. . Medicare Exam - today we discussed [...] case with [facility] She is interested in looking [...] if their heart rate is becoming uncontrolled. excedrin migraine for as needed use for [...] and understands the consequences of over-medication. . Xnxkqn-gupgpqcpu-zklunxcj protonix-follow up with Dr Navarro as scheduled [...] not improved, or if symptoms acutely worsen. ask the heart doctor if there is [...] Fatigue/malaise -Pt was advsied to ask the [facility] the following: ask the heart doctor if [...] Fatigue/malaise -Pt was advsied to ask the [facility] the following: ask the heart doctor if [...] wall. Fatigue - pt to discuss with [facility] about the possibility of amiodarone causing her fatigue/malaise. Power Pudding: equal parts of prune juice, [...]
--- OUTSIDE RECORDS SUMMARY | 2018-12-05 17:09 | XMS REPORT | CCD ---
Author Author [facility] Organization [facility] Address [address] [place] [address] Phone Care Team Providers Care Channel Lip Wetter Name Role Phone PP Unavailable CCM Unavailable Summary Purpose Interface Exchange Insurance Providers Payer name Policy type / Coverage type Covered libertarian ID Effective Begin Date Effective End Date WPS Medicare Part B Medicare Part B [id number] Unknown Principal Life Insurance Medicare Part B [id number] Unknown [employer] [facility] [place] Medicare Part B [id number] Unknown Family history Brother Diagnosis Age At Onset Heart Attack Unknown Mother Diagnosis Age At Onset Hypertension Unknown kidney disease Unknown Stroke Unknown Father Diagnosis Age At Onset Arthritis Unknown Social History Social History Element Codes Description Effective Dates Employment Unknown Retired worked at [employer] 11/20/2017 Marital status Unknown Single 12/16/[address]: 1163841 Former smoker 12/16/[address]: 122348388 Never drinks alcohol 12/16/2014 Allergies, Adverse Reactions, Alerts Substance Reaction Codes Entered Date Inactivated Date Status CODEINE RxNorm: 2670 05/25/2016 No Inactive Date Active ciprofloxacin RxNorm: 16525 12/16/2014 No Inactive Date Active MORPHINE SULFATE [...] Date Stop Date Status Fill Instructions levothyroxine 137 mcg tablet RxNorm: 177779 1 Tablet(s) PO daily 09/12/2018 03/10/2019 Active levothyroxine 137 mcg tablet RxNorm: 646375 1 Tablet(s) PO daily 09/12/2018 09/11/2018 Inactive cyanocobalamin (vit B-12) 1,000 mcg/mL injection solution RxNorm: 306145 Milliliter(s) Inj 09/11/2018 09/11/2018 Inactive levothyroxine 125 mcg tablet RxNorm: 386063 TAKE 1 TABLET BY MOUTH EVERY DAY 09/10/2018 09/11/2018 Inactive Generic For:SYNTHROID 125MCG TAB 09/10/2018 12:06:52 PM cyanocobalamin (vit B-12) 1,000 mcg/mL injection solution RxNorm: 065943 Milliliter(s) Inj 08/29/2018 08/29/2018 Inactive alprazolam 0.25 mg tablet RxNorm: 469293 1 Tablet(s) PO BID 08/21/2018 02/16/2019 Active albuterol sulfate 2.5 mg/3 mL (0.083 %) solution for nebulization RxNorm: 883529 3 Milliliter(s) INH Q6 PRN 08/15/2018 No Stop Date Active Aricept 10 mg tablet RxNorm: 085454 1 Tablet(s) PO daily 08/15/2018 08/09/2019 Active liothyronine 5 mcg tablet RxNorm: 943346 Tablet(s) TAKE 1 TABLET BY MOUTH TWICE DAILY 08/15/2018 02/10/2019 Active cyanocobalamin (vit B-12) 1,000 mcg/mL injection solution RxNorm: 546315 Milliliter(s) Inj 08/15/2018 08/15/2018 Inactive Kenalog 40 mg/mL suspension for injection RxNorm: 1104573 Milliliter(s) Inj 08/15/2018 08/15/2018 Inactive doxycycline hyclate 100 mg capsule RxNorm: 6169185 1 Capsule(s) PO BID 08/15/2018 08/24/2018 Inactive cyanocobalamin (vit B-12) 1,000 mcg/mL injection solution RxNorm: 011027 Milliliter(s) Inj 08/01/2018 08/01/2018 Inactive cyanocobalamin (vit B-12) 1,000 mcg/mL injection solution RxNorm: 295280 Milliliter(s) Inj 07/19/2018 07/19/2018 Inactive hydrocodone 5 mg-acetaminophen 325 mg tablet RxNorm: 032192 1-2 Tablet(s) PO Q6 as needed for pain 07/18/2018 08/15/2018 Inactive betamethasone valerate 0.1 % topical ointment RxNorm: 728500 1 TOP BID 07/04/2018 07/03/2018 Inactive applying to skin under nose x 10 days cyanocobalamin (vit B-12) 1,000 mcg/mL injection solution RxNorm: 525825 Milliliter(s) Inj 07/04/2018 07/04/2018 Inactive betamethasone valerate 0.1 % topical ointment RxNorm: 043112 1 TOP BID 07/04/2018 07/13/2018 Inactive applying to skin under nose x 10 days Aricept 10 mg tablet RxNorm: 029450 Tablet(s) 1 Tablet(s) PO daily 06/25/2018 08/14/2018 Inactive Flonase Allergy Relief 50 mcg/actuation nasal spray,suspension RxNorm: 4938490 [place] 1 [place] NASAL BID 06/20/2018 10/17/2018 Active cyanocobalamin (vit B-12) 1,000 mcg/mL injection solution RxNorm: 887661 Milliliter(s) Inj 06/20/2018 06/20/2018 Inactive hydrocodone 5 mg-acetaminophen 325 mg tablet RxNorm: 176419 1-2 Tablet(s) PO Q6 as needed for pain 06/20/2018 07/17/2018 Inactive cyanocobalamin (vit B-12) 1,000 mcg/mL injection solution RxNorm: 669028 Milliliter(s) Inj 06/06/2018 06/06/2018 Inactive alprazolam 0.25 mg tablet RxNorm: 391030 1 Tablet(s) PO BID 05/25/2018 08/21/2018 Inactive hydrocodone 5 mg-acetaminophen 325 mg tablet RxNorm: 863202 1-2 Tablet(s) PO Q6 as needed for pain 05/24/2018 06/19/2018 Inactive cyanocobalamin (vit B-12) 1,000 mcg/mL injection solution RxNorm: 191880 Milliliter(s) Inj 05/24/2018 05/24/2018 Inactive cyanocobalamin (vit B-12) 1,000 mcg/mL injection solution RxNorm: 720149 Milliliter(s) Inj 05/09/2018 05/09/2018 Inactive Claritin 10 mg tablet RxNorm: 779117 TAKE 1 TABLET BY MOUTH ONCE DAILY 05/08/2018 05/02/2019 Active Generic For:CLARITIN 10MG 05/07/2018 9:13:47 AM cyanocobalamin (vit B-12) 1,000 mcg/mL injection solution RxNorm: 155321 INJECT ONE 1 ML EVERY TWO WEEKS 05/03/2018 04/03/2019 Active 05/03/2018 9:13:42 AM Mobic 15 mg tablet RxNorm: 293860 Tablet(s) 1 Tablet(s) PO daily 04/26/2018 04/20/2019 Active buspirone 15 mg tablet RxNorm: 500912 Tablet(s) TAKE 1 TABLET BY MOUTH TWICE DAILY 04/26/2018 04/20/2019 Active Generic For:BUSPAR 15MG 05/31/2017 9:19:20 AM Norvasc 5 mg tablet RxNorm: 396921 Tablet(s) 1 Tablet(s) PO daily 04/26/2018 04/20/2019 Active cyanocobalamin (vit B-12) 1,000 mcg/mL injection solution RxNorm: 116399 Milliliter(s) Inj 04/26/2018 04/26/2018 Inactive hydrocodone 5 mg-acetaminophen 325 mg tablet RxNorm: 542637 1-2 Tablet(s) PO Q6 as needed for pain 04/25/2018 05/23/2018 Inactive cyanocobalamin (vit B-12) 1,000 mcg/mL injection solution RxNorm: 231663 Milliliter(s) Inj 04/12/2018 04/12/2018 Inactive Topamax 25 mg tablet RxNorm: 820897 1 Tablet(s) PO BID 04/09/2018 05/02/2018 Inactive Generic For:TOPAMAX 25MG 12/06/2016 9:15:13 AM Zoloft 50 mg tablet RxNorm: 954655 TAKE 1 TABLET BY MOUTH ONCE DAILY 04/04/2018 12/29/2018 Active Generic For:ZOLOFT 50MG 04/04/2018 9:13:25 AM cyanocobalamin (vit B-12) 1,000 mcg/mL injection solution RxNorm: 722541 Milliliter(s) Inj 03/30/2018 03/30/2018 Inactive levothyroxine 125 mcg tablet RxNorm: 821802 TAKE 1 TABLET BY MOUTH EVERY DAY 03/26/2018 09/09/2018 Inactive Generic For:SYNTHROID 125MCG TAB 03/26/2018 9:15:59 AM liothyronine 5 mcg tablet RxNorm: 705462 TAKE 1 TABLET BY MOUTH TWICE DAILY 03/26/2018 08/14/2018 Inactive Generic For:CYTOMEL 5MCG 03/26/2018 9:15:54 AM hydrocodone 5 mg-acetaminophen 325 mg tablet RxNorm: 145973 1-2 Tablet(s) PO Q6 as needed for pain 03/19/2018 04/17/2018 Inactive cyanocobalamin (vit B-12) 1,000 mcg/mL injection solution RxNorm: 278374 Milliliter(s) Inj 03/16/2018 03/16/2018 Inactive Flonase Allergy Relief 50 mcg/actuation nasal spray,suspension RxNorm: 5357983 1 [place] NASAL BID 03/05/2018 06/19/2018 Inactive cyanocobalamin (vit B-12) 1,000 mcg/mL injection solution RxNorm: 745179 Milliliter(s) Inj 03/02/2018 03/02/2018 Inactive alprazolam 0.25 mg tablet RxNorm: 289456 1 Tablet(s) PO BID 02/28/2018 05/27/2018 Inactive cyanocobalamin (vit B-12) 1,000 mcg/mL injection solution RxNorm: 520391 Milliliter(s) Inj 02/08/2018 02/08/2018 Inactive cyanocobalamin (vit B-12) 1,000 mcg/mL injection solution RxNorm: 252379 Milliliter(s) Inj 01/24/2018 01/24/2018 Inactive albuterol sulfate 2.5 mg/3 mL (0.083 %) solution for nebulization RxNorm: 771355 3 Milliliter(s) INH Q6 PRN 01/24/2018 05/02/2018 Inactive Claritin 10 mg tablet RxNorm: 378770 1 Tablet(s) PO daily 01/15/2018 05/07/2018 Inactive cyanocobalamin (vit B-12) 1,000 mcg/mL injection solution RxNorm: 987496 Milliliter(s) Inj 01/10/2018 01/10/2018 Inactive hydrocodone 5 mg-acetaminophen 325 mg tablet RxNorm: 225002 1-2 Tablet(s) PO Q6 as needed for pain 01/09/2018 02/07/2018 Inactive cyanocobalamin (vit B-12) 1,000 mcg/mL injection solution RxNorm: 229542 Milliliter(s) Inj 12/27/2017 12/27/2017 Inactive cyanocobalamin (vit B-12) 1,000 mcg/mL injection solution RxNorm: 496243 1 Milliliter(s) Inj 12/12/2017 12/12/2017 Inactive Zofran ODT 4 mg disintegrating tablet RxNorm: 279608 1 Tablet(s) PO TID as needed 12/08/2017 12/09/2017 Inactive hydrocodone 2.5 mg-guaifenesin 200 mg/5 mL oral solution RxNorm: 783071 5 Milliliter(s) PO 12/04/2017 05/06/2018 Inactive doxycycline hyclate 100 mg capsule RxNorm: 7429459 1 Capsule(s) PO BID 12/04/2017 12/13/2017 Inactive cyanocobalamin (vit B-12) 1,000 mcg/mL injection solution RxNorm: 215805 Milliliter(s) Inj 12/01/2017 12/01/2017 Inactive Flonase Allergy Relief 50 mcg/actuation nasal spray,suspension RxNorm: 1346028 1 [place] NASAL BID 11/20/2017 2018 Inactive cyanocobalamin (vit B-12) 1,000 mcg/mL injection solution RxNorm: 178776 1 Milliliter(s) Inj 11/17/2017 11/17/2017 Inactive hydrocodone 5 mg-acetaminophen 325 mg tablet RxNorm: 760931 1-2 Tablet(s) PO Q6 as needed for pain 11/16/2017 12/15/2017 Inactive cyanocobalamin (vit B-12) 1,000 mcg/mL injection solution RxNorm: 294063 1 Milliliter(s) Inj 11/02/2017 11/02/2017 Inactive hydrocodone 5 mg-acetaminophen 325 mg tablet RxNorm: 201264 1-2 Tablet(s) PO Q6 as needed for pain 10/25/2017 11/15/2017 Inactive Claritin 10 mg tablet RxNorm: 980421 1 Tablet(s) PO daily 10/25/2017 11/19/2017 Inactive albuterol sulfate 2.5 mg/3 mL (0.083 %) solution for nebulization RxNorm: 996060 3 Milliliter(s) INH Q6 PRN 10/25/2017 01/23/2018 Inactive Claritin 10 mg tablet RxNorm: 024369 1 Tablet(s) PO daily 10/25/2017 10/24/2017 Inactive cyanocobalamin (vit B-12) 1,000 mcg/mL injection solution RxNorm: 764862 1 Milliliter(s) Inj 10/20/2017 10/20/2017 Inactive Zoloft 50 mg tablet RxNorm: 073237 TAKE 1 TABLET BY MOUTH ONCE DAILY 10/13/2017 04/03/2018 Inactive Generic For:ZOLOFT 50MG 10/13/2017 8:59:44 AM cyanocobalamin (vit B-12) 1,000 mcg/mL injection solution RxNorm: 895783 Milliliter(s) Inj 10/06/2017 10/06/2017 Inactive liothyronine 5 mcg tablet RxNorm: 722812 TAKE 1 TABLET BY MOUTH TWICE DAILY 10/03/2017 03/25/2018 Inactive Generic For:CYTOMEL 5MCG 10/03/2017 9:13:38 AM cyanocobalamin (vit B-12) 1,000 mcg/mL injection solution RxNorm: 960506 Milliliter(s) Inj 09/21/2017 09/21/2017 Inactive albuterol sulfate 2.5 mg/3 mL (0.083 %) solution for nebulization RxNorm: 909644 3 Milliliter(s) INH Q6 PRN 09/21/2017 10/24/2017 Inactive hydrocodone 5 mg-acetaminophen 325 mg tablet RxNorm: 094754 1-2 Tablet(s) PO Q6 as needed for pain 09/21/2017 10/20/2017 Inactive Kenalog 40 mg/mL suspension for injection RxNorm: 3051787 Milliliter(s) Inj 09/15/2017 09/15/2017 Inactive Keflex 500 mg capsule RxNorm: 633477 1 Capsule(s) PO TID 09/07/2017 09/16/2017 Inactive Please deliver to patient cyanocobalamin (vit B-12) 1,000 mcg/mL injection solution RxNorm: 664265 Milliliter(s) Inj 09/07/2017 09/07/2017 Inactive alprazolam 0.25 mg tablet RxNorm: 442034 1 Tablet(s) PO BID 09/06/2017 02/27/2018 Inactive Aricept 10 mg tablet RxNorm: 176406 1 Tablet(s) PO daily 09/06/2017 06/24/2018 Inactive hydrocodone 5 mg-acetaminophen 325 mg tablet RxNorm: 668827 1-2 Tablet(s) PO Q6 as needed for pain 08/24/2017 09/20/2017 Inactive cyanocobalamin (vit B-12) 1,000 mcg/mL injection solution RxNorm: 712419 Milliliter(s) Inj 08/24/2017 08/24/2017 Inactive Norvasc 5 mg tablet RxNorm: 352168 1 Tablet(s) PO daily 08/18/2017 04/25/2018 Inactive nystatin 100,000 unit/gram topical powder RxNorm: 008196 1 Gram(s) TOP QID 08/17/2017 08/26/2017 Inactive hydrocodone 5 mg-acetaminophen 325 mg tablet RxNorm: 708273 1-2 Tablet(s) PO Q6 as needed for pain 07/25/2017 08/23/2017 Inactive Tamiflu 75 mg capsule RxNorm: 386203 1 Capsule(s) PO BID 07/24/2017 12/11/2017 Inactive nystatin 100,000 unit/gram topical powder RxNorm: 717807 1 Gram(s) TOP QID 07/14/2017 07/22/2017 Inactive levothyroxine 125 mcg tablet RxNorm: 999497 Tablet(s) 1 Tablet(s) PO daily 07/10/2017 01/05/2018 Inactive nystatin 100,000 unit/gram topical powder RxNorm: 614592 1 Gram(s) TOP QID 07/06/2017 07/13/2017 Inactive cyanocobalamin (vit B-12) 1,000 mcg/mL injection solution RxNorm: 859068 Milliliter(s) Inj 07/06/2017 07/06/2017 Inactive Kenalog 40 mg/mL suspension for injection RxNorm: 7698699 1 Milliliter(s) Inj 06/20/2017 06/20/2017 Inactive doxycycline hyclate 100 mg capsule RxNorm: 0278610 1 Capsule(s) PO BID 06/20/2017 06/26/2017 Inactive cyanocobalamin (vit B-12) 1,000 mcg/mL injection solution RxNorm: 516771 Milliliter(s) Inj 06/20/2017 06/20/2017 Inactive Keflex 500 mg capsule RxNorm: 755747 1 Capsule(s) PO TID 06/14/2017 06/23/2017 Inactive Please deliver to patient Mobic 15 mg tablet RxNorm: 221566 1 Tablet(s) PO daily 06/14/2017 04/25/2018 Inactive cyanocobalamin (vit B-12) 1,000 mcg/mL injection solution RxNorm: 334000 Milliliter(s) Inj 06/05/2017 06/05/2017 Inactive buspirone 15 mg tablet RxNorm: 688524 TAKE 1 TABLET BY MOUTH TWICE DAILY 05/31/2017 04/25/2018 Inactive Generic For:BUSPAR 15MG 05/31/2017 9:19:20 AM cyanocobalamin (vit B-12) 1,000 mcg/mL injection solution RxNorm: 898920 Milliliter(s) Inj 05/25/2017 05/25/2017 Inactive hydrocodone 5 mg-acetaminophen 325 mg tablet RxNorm: 924119 1-2 Tablet(s) PO Q6 as needed for pain 05/25/2017 06/23/2017 Inactive amiodarone 200 mg tablet RxNorm: 697892 1/2 Tablet(s) PO daily 05/22/2017 No Stop Date Active cardiology decreased to 100mg daily cyanocobalamin (vit B-12) 1,000 mcg/mL injection solution RxNorm: 172085 Milliliter(s) Inj 05/16/2017 05/16/2017 Inactive Zofran ODT 4 mg disintegrating tablet RxNorm: 057006 1 Tablet(s) PO TID as needed 05/03/2017 05/04/2017 Inactive hydrocodone 5 mg-acetaminophen 325 mg tablet RxNorm: 876917 1-2 Tablet(s) PO Q6 as needed for pain 05/01/2017 05/05/2017 Inactive cyanocobalamin (vit B-12) 1,000 mcg/mL injection solution RxNorm: 933395 1 Milliliter(s) Inj 05/01/2017 05/01/2017 Inactive cyanocobalamin (vit B-12) 1,000 mcg/mL injection solution RxNorm: 375137 INJECT ONE 1 ML EVERY TWO WEEKS 04/26/2017 12/04/2018 Active 04/26/2017 9:08:52 AM Zoloft 50 mg tablet RxNorm: 849783 Tablet(s) TAKE 1 TABLET BY MOUTH DAILY 04/25/2017 10/12/2017 Inactive Generic For:ZOLOFT 50MG cyanocobalamin (vit B-12) 1,000 mcg/mL injection solution RxNorm: 888001 Milliliter(s) Inj 04/18/2017 04/18/2017 Inactive liothyronine 5 mcg tablet RxNorm: 203763 1 Tablet(s) PO BID 04/13/2017 10/02/2017 Inactive cyanocobalamin (vit B-12) 1,000 mcg/mL injection solution RxNorm: 772114 Milliliter(s) Inj 04/06/2017 04/06/2017 Inactive hydrocodone 5 mg-acetaminophen 325 mg tablet RxNorm: 579960 1-2 Tablet(s) PO Q6 as needed for pain 04/06/2017 04/10/2017 Inactive cyanocobalamin (vit B-12) 1,000 mcg/mL injection solution RxNorm: 600846 Milliliter(s) Inj 03/22/2017 03/22/2017 Inactive alprazolam 0.25 mg tablet RxNorm: 106247 1 Tablet(s) PO BID 03/17/2017 12/11/2017 Inactive alprazolam 0.25 mg tablet RxNorm: 428733 1 Tablet(s) PO BID 03/16/2017 09/05/2017 Inactive hydrocodone 5 mg-acetaminophen 325 mg tablet RxNorm: 418205 1-2 Tablet(s) PO Q6 as needed for pain 03/09/2017 03/13/2017 Inactive cyanocobalamin (vit B-12) 1,000 mcg/mL injection solution RxNorm: 863054 Milliliter(s) Inj 03/09/2017 03/09/2017 Inactive cyanocobalamin (vit B-12) 1,000 mcg/mL injection solution RxNorm: 020553 Milliliter(s) Inj 02/23/2017 02/23/2017 Inactive cyanocobalamin (vit B-12) 1,000 mcg/mL injection solution RxNorm: 641427 Milliliter(s) Inj 02/09/2017 02/09/2017 Inactive hydrocodone 5 mg-acetaminophen 325 mg tablet RxNorm: 196379 1-2 Tablet(s) PO Q6 as needed for pain 02/08/2017 02/12/2017 Inactive Topamax 25 mg tablet RxNorm: 429244 1 Tablet(s) PO BID 01/23/2017 05/22/2017 Inactive Generic For:TOPAMAX 25MG 12/06/2016 9:15:13 AM cyanocobalamin (vit B-12) 1,000 mcg/mL injection solution RxNorm: 506084 Milliliter(s) Inj 01/23/2017 01/23/2017 Inactive cyanocobalamin (vit B-12) 1,000 mcg/mL injection solution RxNorm: 573148 Milliliter(s) Inj 01/10/2017 01/10/2017 Inactive hydrocodone 5 mg-acetaminophen 325 mg tablet RxNorm: 394795 1-2 Tablet(s) PO Q6 as needed for pain 01/09/2017 01/13/2017 Inactive cyanocobalamin (vit B-12) 1,000 mcg/mL injection solution RxNorm: 070215 1 Milliliter(s) Inj 12/28/2016 12/28/2016 Inactive cyanocobalamin (vit B-12) 1,000 mcg/mL injection solution RxNorm: 010408 Milliliter(s) Inj 12/14/2016 12/14/2016 Inactive buspirone 15 mg tablet RxNorm: 789812 1 Tablet(s) PO BID 12/12/2016 05/30/2017 Inactive hydrocodone 5 mg-acetaminophen 325 mg tablet RxNorm: 947963 1-2 Tablet(s) PO Q6 as needed for pain 12/08/2016 12/12/2016 Inactive Topamax 25 mg tablet RxNorm: 366984 TAKE 1 TABLET BY MOUTH EVERY DAY AT BEDTIME 12/06/2016 01/22/2017 Inactive Generic For:TOPAMAX 25MG 12/06/2016 9:15:13 AM Lac-Hydrin Five 5 % lotion RxNorm: 467033 1 Gram(s) TOP daily 12/02/2016 05/02/2018 Inactive cyanocobalamin (vit B-12) 1,000 mcg/mL injection solution RxNorm: 280872 Milliliter(s) Inj 11/24/2016 11/24/2016 Inactive Ceftin 500 mg tablet RxNorm: 728636 1 Tablet(s) PO BID 11/11/2016 06/13/2017 Inactive Cipro 500 mg tablet RxNorm: 391558 1 Tablet(s) PO BID 11/11/2016 11/10/2016 Inactive Cipro 500 mg tablet RxNorm: 654839 1 Tablet(s) PO BID 11/11/2016 11/11/2016 Inactive cyanocobalamin (vit B-12) 1,000 mcg/mL injection solution RxNorm: 475227 1 Milliliter(s) Inj 11/07/2016 11/07/2016 Inactive hydrocodone 5 mg-acetaminophen 325 mg tablet RxNorm: 518343 1-2 Tablet(s) PO Q6 as needed for pain 11/02/2016 11/06/2016 Inactive cyanocobalamin (vit B-12) 1,000 mcg/mL injection solution RxNorm: 378790 Milliliter(s) Inj 10/24/2016 10/24/2016 Inactive levothyroxine 125 mcg tablet RxNorm: 932766 Tablet(s) 1 Tablet(s) PO daily 10/24/2016 04/21/2017 Inactive liothyronine 5 mcg tablet RxNorm: 514822 1 Tablet(s) PO BID 10/24/2016 04/12/2017 Inactive hydrocodone 5 mg-acetaminophen 325 mg tablet RxNorm: 602892 1-2 Tablet(s) PO Q6 as needed for pain 10/17/2016 10/21/2016 Inactive Keflex 500 mg capsule RxNorm: 861536 1 Capsule(s) PO TID 10/07/2016 10/06/2016 Inactive Keflex 500 mg capsule RxNorm: 070356 1 Capsule(s) PO TID 10/07/2016 10/16/2016 Inactive Please deliver to patient cyanocobalamin (vit B-12) 1,000 mcg/mL injection solution RxNorm: 232798 1 Milliliter(s) Inj 09/29/2016 09/29/2016 Inactive alprazolam 0.25 mg tablet RxNorm: 423477 1 Tablet(s) PO BID 09/20/2016 03/16/2017 Inactive Cozaar 100 mg tablet RxNorm: 006751 1 Tablet(s) PO daily 09/14/2016 No Stop Date Active metoprolol tartrate 50 mg tablet RxNorm: 596573 1/2 Tablet(s) PO BID 09/14/2016 12/12/2016 Inactive Zoloft 50 mg tablet RxNorm: 467358 Tablet(s) TAKE 1 TABLET BY MOUTH DAILY 09/14/2016 03/12/2017 Inactive Generic For:ZOLOFT 50MG liothyronine 5 mcg tablet RxNorm: 505099 1 Tablet(s) PO BID 09/14/2016 10/23/2016 Inactive Calmoseptine 0.44 %-20.6 % topical ointment RxNorm: 566008 1 Application TOP BID and as needed to sore on buttocks 09/07/2016 No Stop Date Active cyanocobalamin (vit B-12) 1,000 mcg/mL injection solution RxNorm: 163812 Milliliter(s) Inj 08/29/2016 08/29/2016 Inactive hydrocodone 5 mg-acetaminophen 325 mg tablet RxNorm: 795574 1-2 Tablet(s) PO Q6 as needed for pain 08/29/2016 10/16/2016 Inactive levothyroxine 125 mcg tablet RxNorm: 569060 1 Tablet(s) PO daily 08/25/2016 10/23/2016 Inactive Topamax 25 mg tablet RxNorm: 872884 TAKE 1 TABLET BY MOUTH EVERY DAY AT BEDTIME 08/17/2016 12/05/2016 Inactive Generic For:TOPAMAX 25MG 08/17/2016 2:14:37 PM hydrocodone 5 mg-acetaminophen 325 mg tablet RxNorm: 214155 1-2 Tablet(s) PO Q6 as needed for pain 08/11/2016 08/28/2016 Inactive hydrocodone 5 mg-acetaminophen 325 mg tablet RxNorm: 534562 1 -2 Tablet(s) PO Q6 as needed for pain 08/11/2016 08/18/2016 Inactive hydrocodone 5 mg-acetaminophen 325 mg tablet RxNorm: 374475 1 Tablet(s) PO Q6 as needed for pain 08/05/2016 08/10/2016 Inactive cyanocobalamin (vit B-12) 1,000 mcg/mL injection solution RxNorm: 771028 Milliliter(s) Inj 08/04/2016 08/04/2016 Inactive Norvasc 10 mg tablet RxNorm: 524603 1 Tablet(s) PO daily 07/26/2016 07/20/2017 Inactive alprazolam 0.25 mg tablet RxNorm: 887055 1 Tablet(s) PO QHS 07/21/2016 09/19/2016 Inactive Norvasc 5 mg tablet RxNorm: 286687 1 Tablet(s) PO daily 07/21/2016 07/25/2016 Inactive levothyroxine 125 mcg tablet RxNorm: 435710 1 Tablet(s) PO daily 07/21/2016 12/11/2017 Inactive cyanocobalamin (vit B-12) 1,000 mcg/mL injection solution RxNorm: 972218 Milliliter(s) Inj 07/21/2016 07/21/2016 Inactive Zoloft 50 mg tablet RxNorm: 787801 Tablet(s) TAKE 1 TABLET BY MOUTH DAILY 07/21/2016 09/13/2016 Inactive Generic For:ZOLOFT 50MG cyanocobalamin (vit B-12) 1,000 mcg/mL injection solution RxNorm: 947568 1 Milliliter(s) Inj 07/05/2016 07/05/2016 Inactive cyanocobalamin (vit B-12) 1,000 mcg/mL injection solution RxNorm: 389244 1 Milliliter(s) Inj 06/22/2016 06/22/2016 Inactive cyanocobalamin (vit B-12) 1,000 mcg/mL injection solution RxNorm: 002141 Milliliter(s) Inj 06/09/2016 06/09/2016 Inactive Aricept 10 mg tablet RxNorm: 778239 1 Tablet(s) PO daily 05/27/2016 05/21/2017 Inactive Mobic 15 mg tablet RxNorm: 793137 1 Tablet(s) PO daily 05/27/2016 05/21/2017 Inactive levothyroxine 125 mcg tablet RxNorm: 161991 1 Tablet(s) PO daily 05/25/2016 07/20/2016 Inactive cyanocobalamin (vit B-12) 1,000 mcg/mL injection solution RxNorm: 606939 1 Milliliter(s) Inj 05/25/2016 05/25/2016 Inactive doxycycline hyclate 100 mg capsule RxNorm: 7693555 1 Capsule(s) PO BID 05/16/2016 05/15/2016 Inactive doxycycline hyclate 100 mg capsule RxNorm: 9214230 1 Capsule(s) PO BID 05/16/2016 05/22/2016 Inactive cyanocobalamin (vit B-12) 1,000 mcg/mL injection solution RxNorm: 257758 Milliliter(s) Inj 05/10/2016 05/10/2016 Inactive cyanocobalamin (vit B-12) 1,000 mcg/mL injection solution RxNorm: 424016 Milliliter(s) Inj 04/26/2016 04/26/2016 Inactive Topamax 25 mg tablet RxNorm: 389282 1 Tablet(s) PO QPM 04/22/2016 08/16/2016 Inactive cyanocobalamin (vit B-12) 1,000 mcg/mL injection solution RxNorm: 742115 Milliliter(s) 1 Milliliter(s) Inj [id number] 04/11/2016 12/31/2017 Inactive liothyronine 5 mcg tablet RxNorm: 783380 1 Tablet(s) PO BID 04/11/2016 09/13/2016 Inactive cyanocobalamin (vit B-12) 1,000 mcg/mL injection solution RxNorm: 860652 Milliliter(s) Inj 04/11/2016 04/11/2016 Inactive cyanocobalamin (vit B-12) 1,000 mcg/mL injection solution RxNorm: 505519 Milliliter(s) Inj 03/31/2016 03/31/2016 Inactive cyanocobalamin (vit B-12) 1,000 mcg/mL injection solution RxNorm: 616348 1 Milliliter(s) Inj 03/15/2016 03/15/2016 Inactive levothyroxine 125 mcg tablet RxNorm: 514864 1 Tablet(s) PO daily 2016 03/03/2016 Inactive levothyroxine 125 mcg tablet RxNorm: 635680 1 Tablet(s) PO daily 2016 05/24/2016 Inactive cyanocobalamin (vit B-12) 1,000 mcg/mL injection solution RxNorm: 857762 Milliliter(s) Inj 02/25/2016 02/25/2016 Inactive cyanocobalamin (vit B-12) 1,000 mcg/mL injection solution RxNorm: 505933 1 Milliliter(s) Inj 02/02/2016 02/02/2016 Inactive sucralfate 1 gram tablet RxNorm: 597809 1 Tablet(s) PO QHS 01/25/2016 No Stop Date Active amiodarone 200 mg tablet RxNorm: 760245 1/2 Tablet(s) PO BID 01/25/2016 05/21/2017 Inactive cyanocobalamin (vit B-12) 1,000 mcg/mL injection solution RxNorm: 924854 Milliliter(s) Inj 01/18/2016 01/18/2016 Inactive cyanocobalamin (vit B-12) 1,000 mcg/mL injection solution RxNorm: 757185 Milliliter(s) Inj 12/29/2015 12/29/2015 Inactive Topamax 25 mg tablet RxNorm: 660755 1 Tablet(s) PO QPM 12/08/2015 04/05/2016 Inactive cyanocobalamin (vit B-12) 1,000 mcg/mL injection solution RxNorm: 911142 Milliliter(s) Inj 12/08/2015 12/08/2015 Inactive Bactrim DS 800 mg-160 mg tablet RxNorm: 166046 1 Tablet(s) PO BID 11/23/2015 11/22/2015 Inactive cyanocobalamin (vit B-12) 1,000 mcg/mL injection solution RxNorm: 399387 Milliliter(s) Inj 11/23/2015 11/23/2015 Inactive Bactrim DS 800 mg-160 mg tablet RxNorm: 744301 1 Tablet(s) PO BID 11/23/2015 11/29/2015 Inactive cyanocobalamin (vit B-12) 1,000 mcg/mL injection solution RxNorm: 290251 Milliliter(s) Inj 11/11/2015 11/11/2015 Inactive amoxicillin 500 mg capsule RxNorm: 445635 1 Capsule(s) PO TID 11/10/2015 11/19/2015 Inactive Zithromax Z-Henrique 250 mg tablet RxNorm: 251399 1 Tablet(s) PO UD 11/10/2015 01/24/2016 Inactive zpack x 1 amoxicillin 500 mg capsule RxNorm: 750818 1 Capsule(s) PO TID 11/10/2015 11/09/2015 Inactive cyanocobalamin (vit B-12) 1,000 mcg/mL injection solution RxNorm: 830431 1 Milliliter(s) Inj 10/29/2015 10/29/2015 Inactive [place] 3 capsule RxNorm: 1 Capsule(s) PO QAM , 2 Capsules at noon, 1 Capsule QHS 10/13/2015 No Stop Date Active potassium chloride ER 20 mEq tablet,extended release RxNorm: 726842 2 Tablet(s) PO daily at noon 10/13/2015 No Stop Date Active alprazolam 0.25 mg tablet RxNorm: 239823 1 Tablet(s) PO QHS 10/13/2015 07/20/2016 Inactive amiodarone 200 mg tablet RxNorm: 768829 1 Tablet(s) PO BID 10/13/2015 01/24/2016 Inactive cyanocobalamin (vit B-12) 1,000 mcg/mL injection solution RxNorm: 674349 1 Milliliter(s) Inj 10/12/2015 10/12/2015 Inactive Zofran 4 mg tablet RxNorm: 888262 1 Tablet(s) PO daily as needed 10/07/2015 05/24/2016 Inactive Zoloft 50 mg tablet RxNorm: 433879 TAKE 1 TABLET BY MOUTH DAILY 10/05/2015 05/01/2016 Inactive Generic For:ZOLOFT 50MG cyanocobalamin (vit B-12) 1,000 mcg/mL injection solution RxNorm: 307380 1 Milliliter(s) Inj 09/29/2015 09/29/2015 Inactive cyanocobalamin (vit B-12) 1,000 mcg/mL injection solution RxNorm: 843989 1 Milliliter(s) Inj 09/17/2015 09/17/2015 Inactive Norvasc 5 mg tablet RxNorm: 066196 1 Tablet(s) PO daily 09/17/2015 07/20/2016 Inactive liothyronine 5 mcg tablet RxNorm: 684010 1 Tablet(s) PO BID 09/17/2015 03/14/2016 Inactive Zoloft 50 mg tablet RxNorm: 758750 1 Tablet(s) PO daily 09/17/2015 10/04/2015 Inactive buspirone 15 mg tablet RxNorm: 665410 1 Tablet(s) PO BID 09/17/2015 09/10/2016 Inactive buspirone 15 mg tablet RxNorm: 493602 1 Tablet(s) PO BID 09/14/2015 09/16/2015 Inactive Topamax 25 mg tablet RxNorm: 670376 1 Tablet(s) PO QPM 09/03/2015 12/07/2015 Inactive cyanocobalamin (vit B-12) 1,000 mcg/mL injection solution RxNorm: 117412 1 Milliliter(s) Inj 09/03/2015 09/03/2015 Inactive cyanocobalamin (vit B-12) 1,000 mcg/mL injection solution RxNorm: 070613 Milliliter(s) Inj 08/17/2015 08/17/2015 Inactive cyanocobalamin (vit B-12) 1,000 mcg/mL injection solution RxNorm: 400654 Milliliter(s) Inj 08/06/2015 08/06/2015 Inactive levothyroxine 150 mcg tablet RxNorm: 549206 1 Tablet(s) PO daily 07/22/2015 03/03/2016 Inactive Aricept 10 mg tablet RxNorm: 427214 1 Tablet(s) PO daily 07/22/2015 05/26/2016 Inactive Mobic 15 mg tablet RxNorm: 939835 1 Tablet(s) PO daily 07/22/2015 05/26/2016 Inactive cyanocobalamin (vit B-12) 1,000 mcg/mL injection solution RxNorm: 790496 Milliliter(s) Inj 07/22/2015 07/22/2015 Inactive liothyronine 5 mcg tablet RxNorm: 640877 1 Tablet(s) PO BID 07/22/2015 09/16/2015 Inactive cyanocobalamin (vit B-12) 1,000 mcg/mL injection solution RxNorm: 062552 Milliliter(s) Inj 07/08/2015 07/08/2015 Inactive cyanocobalamin (vit B-12) 1,000 mcg/mL injection solution RxNorm: 419567 Milliliter(s) Inj 06/23/2015 06/23/2015 Inactive cyanocobalamin (vit B-12) 1,000 mcg/mL injection solution RxNorm: 176854 1 Milliliter(s) Inj 06/08/2015 06/08/2015 Inactive cyanocobalamin (vit B-12) 1,000 mcg/mL injection solution RxNorm: 272765 Milliliter(s) Inj 05/27/2015 05/27/2015 Inactive Aricept 10 mg tablet RxNorm: 018271 1 Tablet(s) PO daily 05/20/2015 07/21/2015 Inactive Zofran 4 mg tablet RxNorm: 953127 1 Tablet(s) PO daily as needed 05/20/2015 06/18/2015 Inactive alprazolam 0.25 mg tablet RxNorm: 135695 1 Tablet(s) PO BID 05/20/2015 10/12/2015 Inactive Mobic 15 mg tablet RxNorm: 823802 1 Tablet(s) PO daily 05/20/2015 07/21/2015 Inactive tramadol ER 100 mg tablet,extended release 24 hr RxNorm: 944287 1 Tablet(s) PO Q6 as needed 05/13/2015 No Stop Date Active cyanocobalamin (vit B-12) 1,000 mcg/mL injection solution RxNorm: 231787 1 Milliliter(s) Inj 05/12/2015 05/12/2015 Inactive Topamax 25 mg tablet RxNorm: 070776 1 Tablet(s) PO BID (start at one pill at bedtime x 1week then twice daily thereafter) 05/12/2015 09/02/2015 Inactive cyanocobalamin (vit B-12) 1,000 mcg/mL injection kit RxNorm: 423637 kit Inj 04/30/2015 04/30/2015 Inactive cyanocobalamin (vit B-12) 1,000 mcg/mL injection solution RxNorm: 958904 Milliliter(s) Inj 04/16/2015 04/16/2015 Inactive levothyroxine 150 mcg tablet RxNorm: 971603 1 Tablet(s) PO daily 04/08/2015 07/21/2015 Inactive cyanocobalamin (vit B-12) 1,000 mcg/mL injection solution RxNorm: 071272 Milliliter(s) 1 Milliliter(s) Inj [id number] 04/08/2015 04/10/2016 Inactive Cytomel 5 mcg tablet RxNorm: 411079 1 Tablet(s) PO BID 04/08/2015 10/12/2015 Inactive Cytomel 5 mcg tablet RxNorm: 801985 1 Tablet(s) PO BID 04/07/2015 04/07/2015 Inactive Cytomel 5 mcg tablet RxNorm: 865095 1 Tablet(s) PO BID 04/07/2015 04/06/2015 Inactive cyanocobalamin (vit B-12) 1,000 mcg/mL injection solution RxNorm: 617046 Milliliter(s) Inj 04/02/2015 04/02/2015 Inactive cyanocobalamin (vit B-12) 1,000 mcg/mL injection solution RxNorm: 732843 Milliliter(s) Inj 03/18/2015 03/18/2015 Inactive cyanocobalamin (vit B-12) 1,000 mcg/mL injection solution RxNorm: 477361 Milliliter(s) 1 Milliliter(s) Inj [id number] 03/18/2015 04/07/2015 Inactive cyanocobalamin (vit B-12) 1,000 mcg/mL injection solution RxNorm: 950240 1 Milliliter(s) Inj [id number] 03/16/2015 03/17/2015 Inactive cyanocobalamin (vit B-12) 1,000 mcg/mL injection solution RxNorm: 979719 Milliliter(s) Inj 03/03/2015 03/03/2015 Inactive cyanocobalamin (vit B-12) 1,000 mcg/mL injection solution RxNorm: 766027 Milliliter(s) Inj 02/18/2015 02/18/2015 Inactive cyanocobalamin (vit B-12) 1,000 mcg/mL injection solution RxNorm: 003408 Milliliter(s) Inj 02/04/2015 02/04/2015 Inactive cyanocobalamin (vit B-12) 1,000 mcg/mL injection solution RxNorm: 624714 Milliliter(s) Inj 01/22/2015 01/22/2015 Inactive Lac-Hydrin Five 5 % lotion RxNorm: 368085 1 TOP daily 01/13/2015 03/13/2015 Inactive Lac-Hydrin Five 5 % lotion RxNorm: 236693 1 TOP daily 01/13/2015 01/12/2015 Inactive cyanocobalamin (vit B-12) 1,000 mcg/mL injection solution RxNorm: 130512 Milliliter(s) Inj 01/08/2015 01/08/2015 Inactive cyanocobalamin (vit B-12) 1,000 mcg/mL injection solution RxNorm: 090946 Milliliter(s) Inj 12/25/2014 12/25/2014 Inactive levothyroxine 150 mcg tablet RxNorm: 575908 1 Tablet(s) PO daily 12/24/2014 04/07/2015 Inactive tramadol 50 mg tablet RxNorm: 241465 1-2 Tablet(s) PO Q6 as needed 12/17/2014 05/12/2015 Inactive alprazolam 0.25 mg tablet RxNorm: 306132 1 Tablet(s) PO BID 12/17/2014 04/15/2015 Inactive Pradaxa 150 mg capsule RxNorm: 5876679 1 Capsule(s) PO BID 12/16/2014 No Stop Date Active metoprolol tartrate 50 mg tablet RxNorm: 434772 1/2 Tablet(s) PO BID 12/16/2014 09/13/2016 Inactive buspirone 15 mg tablet RxNorm: 405987 1 Tablet(s) PO BID 12/16/2014 09/13/2015 Inactive cyanocobalamin (vit B-12) 1,000 mcg/mL injection solution RxNorm: 144416 1 Milliliter(s) Inj [id number] 12/16/2014 03/15/2015 Inactive cyanocobalamin (vit B-12) 1,000 mcg/mL injection solution RxNorm: 781768 1 Milliliter(s) Inj [id number] 12/16/2014 12/15/2014 Inactive sucralfate 1 gram tablet RxNorm: 522847 Tablet(s) PO QID 12/16/2014 12/10/2015 Inactive cyanocobalamin (vit B-12) 1,000 mcg/mL injection solution RxNorm: 301970 Milliliter(s) Inj 12/10/2014 12/10/2014 Inactive cyanocobalamin (vit B-12) 1,000 mcg/mL injection solution RxNorm: 371188 Milliliter(s) Inj 11/26/2014 11/26/2014 Inactive Zoloft 50 mg tablet RxNorm: 660316 1 Tablet(s) PO daily 11/24/2014 06/21/2015 Inactive Zoloft 50 mg tablet RxNorm: 618076 1 Tablet(s) PO daily 11/24/2014 11/23/2014 Inactive cyanocobalamin (vit B-12) 1,000 mcg/mL injection kit RxNorm: 709045 Milliliter(s) Inj 11/12/2014 11/12/2014 Inactive cyanocobalamin (vit B-12) 1,000 mcg/mL injection solution RxNorm: 535075 Milliliter(s) Inj 10/28/2014 10/28/2014 Inactive [SAVINGS FOR NON-COVERED DRUGS -- BIN:[id number], PCN: [id number], Group: [id number], ID# [id number], Questions: . THIS IS NOT INSURANCE.] promethazine oral RxNorm: 8745 oral No Start Date Active tramadol 50 mg tablet RxNorm: 856528 1 Tablet(s) PO TID No Start Date Active digoxin 125 mcg tablet RxNorm: 530811 Tablet(s) PO every other day No Start Date Active furosemide 40 mg tablet RxNorm: 564556 1 Tablet(s) PO daily No Start Date Active Vitamin D3 5,000 unit tablet RxNorm: 941083 1 Tablet(s) PO daily No Start Date Active erythromycin 250 mg capsule,delayed release RxNorm: 549632 1 Capsule(s) PO AC No Start Date Active Protonix 40 mg tablet,delayed release RxNorm: 861742 1 Tablet(s) PO BID No Start Date Active Cozaar 100 mg tablet RxNorm: 812429 1 Tablet(s) PO daily No Start Date 09/13/2016 Inactive sucralfate 1 gram tablet RxNorm: 496678 Tablet(s) PO QID No Start Date 12/15/2014 Inactive amiodarone 200 mg tablet RxNorm: 497549 2 Tablet(s) PO daily No Start Date 10/13/2015 Inactive buspirone 15 mg tablet RxNorm: 431365 1 Tablet(s) PO daily No Start Date 12/15/2014 Inactive potassium chloride ER 20 mEq tablet,extended release RxNorm: 310568 1 Tablet(s) PO daily No Start Date 10/12/2015 Inactive Prilosec 40 mg capsule,delayed release RxNorm: 993107 1 Capsule(s) PO daily No Start Date 09/02/2015 Inactive [place] 3 capsule RxNorm: Capsule(s) PO No Start Date 10/12/2015 Inactive alprazolam 0.25 mg tablet RxNorm: 746471 Tablet(s) PO QHS No Start Date 12/16/2014 Inactive levothyroxine 125 mcg tablet RxNorm: 680654 1 Tablet(s) PO daily No Start Date 12/23/2014 Inactive liothyronine 5 mcg tablet RxNorm: 995346 1 Tablet(s) PO BID No Start Date 07/21/2015 Inactive Mobic 15 mg tablet RxNorm: 660782 Tablet(s) PO daily No Start Date 05/19/2015 Inactive Norvasc 5 mg tablet RxNorm: 509172 1 Tablet(s) PO daily No Start Date 09/16/2015 Inactive Zofran 4 mg tablet RxNorm: 289569 1 Tablet(s) PO daily as needed No Start Date 05/19/2015 Inactive Tamiflu 75 mg capsule RxNorm: 283439 1 Capsule(s) PO BID No Start Date 07/23/2017 Inactive tramadol 50 mg tablet RxNorm: 000285 1 Tablet(s) PO daily as needed No Start Date 12/16/2014 Inactive amiodarone 200 mg tablet RxNorm: 685643 1 Tablet(s) PO daily No Start Date 10/12/2015 Inactive Zofran ODT 4 mg disintegrating tablet RxNorm: 816906 1 Tablet(s) PO TID as needed No Start Date 05/02/2017 Inactive albuterol sulfate 2.5 mg/3 mL (0.083 %) solution for nebulization RxNorm: 870006 3 Milliliter(s) INH Q6 PRN No Start Date 09/20/2017 Inactive meclizine 25 mg tablet RxNorm: 623633 Tablet(s) PO as needed No Start Date 05/24/2016 Inactive Pradaxa 150 mg capsule RxNorm: 2493234 1 Capsule(s) PO daily No Start Date 12/15/2014 Inactive metoprolol tartrate 50 mg tablet RxNorm: 013954 1/2 Tablet(s) PO No Start Date 12/15/2014 Inactive Aricept 10 mg tablet RxNorm: 452122 Tablet(s) PO daily No Start Date 05/19/2015 Inactive Calmoseptine 0.44 %-20.6 % topical ointment RxNorm: 540828 1 Application TOP BID and as needed to sore on buttocks No Start Date 09/06/2016 Inactive Zithromax Z-Henrique 250 mg tablet RxNorm: 590149 1 Tablet(s) PO UD No Start Date 11/09/2015 Inactive zpack x 1 Medication Administered Medication Codes Instructions Start Date Status cyanocobalamin (vit B-12) 1,000 mcg/mL injection solution RxNorm: 610986 Milliliter 09/11/2018 No longer Active cyanocobalamin (vit B-12) 1,000 mcg/mL injection solution RxNorm: 950223 Milliliter 08/29/2018 No longer Active cyanocobalamin (vit B-12) 1,000 mcg/mL injection solution RxNorm: 895457 Milliliter 08/15/2018 No longer Active Kenalog 40 mg/mL suspension for injection RxNorm: 3994663 Milliliter 08/15/2018 No longer Active cyanocobalamin (vit B-12) 1,000 mcg/mL injection solution RxNorm: 022135 Milliliter 08/01/2018 No longer Active cyanocobalamin (vit B-12) 1,000 mcg/mL injection solution RxNorm: 013590 Milliliter 07/19/2018 No longer Active cyanocobalamin (vit B-12) 1,000 mcg/mL injection solution RxNorm: 558572 Milliliter 07/04/2018 No longer Active cyanocobalamin (vit B-12) 1,000 mcg/mL injection solution RxNorm: 976767 Milliliter 06/20/2018 No longer Active cyanocobalamin (vit B-12) 1,000 mcg/mL injection solution RxNorm: 842149 Milliliter 06/06/2018 No longer Active cyanocobalamin (vit B-12) 1,000 mcg/mL injection solution RxNorm: 795982 Milliliter 05/24/2018 No longer Active cyanocobalamin (vit B-12) 1,000 mcg/mL injection solution RxNorm: 751947 Milliliter 05/09/2018 No longer Active cyanocobalamin (vit B-12) 1,000 mcg/mL injection solution RxNorm: 925376 Milliliter 04/26/2018 No longer Active cyanocobalamin (vit B-12) 1,000 mcg/mL injection solution RxNorm: 297120 Milliliter 04/12/2018 No longer Active cyanocobalamin (vit B-12) 1,000 mcg/mL injection solution RxNorm: 681474 Milliliter 03/30/2018 No longer Active cyanocobalamin (vit B-12) 1,000 mcg/mL injection solution RxNorm: 362586 Milliliter 03/16/2018 No longer Active cyanocobalamin (vit B-12) 1,000 mcg/mL injection solution RxNorm: 518953 Milliliter 03/02/2018 No longer Active cyanocobalamin (vit B-12) 1,000 mcg/mL injection solution RxNorm: 815007 Milliliter 02/08/2018 No longer Active cyanocobalamin (vit B-12) 1,000 mcg/mL injection solution RxNorm: 157682 Milliliter 01/24/2018 No longer Active cyanocobalamin (vit B-12) 1,000 mcg/mL injection solution RxNorm: 135219 Milliliter 01/10/2018 No longer Active cyanocobalamin (vit B-12) 1,000 mcg/mL injection solution RxNorm: 039618 Milliliter 12/27/2017 No longer Active cyanocobalamin (vit B-12) 1,000 mcg/mL injection solution RxNorm: 898065 1Milliliter 12/12/2017 No longer Active cyanocobalamin (vit B-12) 1,000 mcg/mL injection solution RxNorm: 346008 Milliliter 12/01/2017 No longer Active cyanocobalamin (vit B-12) 1,000 mcg/mL injection solution RxNorm: 843670 1Milliliter 11/17/2017 No longer Active cyanocobalamin (vit B-12) 1,000 mcg/mL injection solution RxNorm: 320636 1Milliliter 11/02/2017 No longer Active cyanocobalamin (vit B-12) 1,000 mcg/mL injection solution RxNorm: 589640 1Milliliter 10/20/2017 No longer Active cyanocobalamin (vit B-12) 1,000 mcg/mL injection solution RxNorm: 712992 Milliliter 10/06/2017 No longer Active cyanocobalamin (vit B-12) 1,000 mcg/mL injection solution RxNorm: 604403 Milliliter 09/21/2017 No longer Active Kenalog 40 mg/mL suspension for injection RxNorm: 2968615 Milliliter 09/15/2017 No longer Active cyanocobalamin (vit B-12) 1,000 mcg/mL injection solution RxNorm: 341595 Milliliter 09/07/2017 No longer Active cyanocobalamin (vit B-12) 1,000 mcg/mL injection solution RxNorm: 924681 Milliliter 08/24/2017 No longer Active cyanocobalamin (vit B-12) 1,000 mcg/mL injection solution RxNorm: 636492 Milliliter 07/06/2017 No longer Active Kenalog 40 mg/mL suspension for injection RxNorm: 6672317 1Milliliter 06/20/2017 No longer Active cyanocobalamin (vit B-12) 1,000 mcg/mL injection solution RxNorm: 430015 Milliliter 06/20/2017 No longer Active cyanocobalamin (vit B-12) 1,000 mcg/mL injection solution RxNorm: 139461 Milliliter 06/05/2017 No longer Active cyanocobalamin (vit B-12) 1,000 mcg/mL injection solution RxNorm: 322100 Milliliter 05/25/2017 No longer Active cyanocobalamin (vit B-12) 1,000 mcg/mL injection solution RxNorm: 070280 Milliliter 05/16/2017 No longer Active cyanocobalamin (vit B-12) 1,000 mcg/mL injection solution RxNorm: 989187 1Milliliter 05/01/2017 No longer Active cyanocobalamin (vit B-12) 1,000 mcg/mL injection solution RxNorm: 724164 Milliliter 04/18/2017 No longer Active cyanocobalamin (vit B-12) 1,000 mcg/mL injection solution RxNorm: 523038 Milliliter 04/06/2017 No longer Active cyanocobalamin (vit B-12) 1,000 mcg/mL injection solution RxNorm: 551584 Milliliter 03/22/2017 No longer Active cyanocobalamin (vit B-12) 1,000 mcg/mL injection solution RxNorm: 346146 Milliliter 03/09/2017 No longer Active cyanocobalamin (vit B-12) 1,000 mcg/mL injection solution RxNorm: 639597 Milliliter 02/23/2017 No longer Active cyanocobalamin (vit B-12) 1,000 mcg/mL injection solution RxNorm: 376717 Milliliter 02/09/2017 No longer Active cyanocobalamin (vit B-12) 1,000 mcg/mL injection solution RxNorm: 620862 Milliliter 01/23/2017 No longer Active cyanocobalamin (vit B-12) 1,000 mcg/mL injection solution RxNorm: 375308 Milliliter 01/10/2017 No longer Active cyanocobalamin (vit B-12) 1,000 mcg/mL injection solution RxNorm: 608426 1Milliliter 12/28/2016 No longer Active cyanocobalamin (vit B-12) 1,000 mcg/mL injection solution RxNorm: 261918 Milliliter 12/14/2016 No longer Active cyanocobalamin (vit B-12) 1,000 mcg/mL injection solution RxNorm: 918283 Milliliter 11/24/2016 No longer Active cyanocobalamin (vit B-12) 1,000 mcg/mL injection solution RxNorm: 444344 1Milliliter 11/07/2016 No longer Active cyanocobalamin (vit B-12) 1,000 mcg/mL injection solution RxNorm: 596211 Milliliter 10/24/2016 No longer Active cyanocobalamin (vit B-12) 1,000 mcg/mL injection solution RxNorm: 742905 1Milliliter 09/29/2016 No longer Active cyanocobalamin (vit B-12) 1,000 mcg/mL injection solution RxNorm: 194403 Milliliter 08/29/2016 No longer Active cyanocobalamin (vit B-12) 1,000 mcg/mL injection solution RxNorm: 481742 Milliliter 08/04/2016 No longer Active cyanocobalamin (vit B-12) 1,000 mcg/mL injection solution RxNorm: 132758 Milliliter 07/21/2016 No longer Active cyanocobalamin (vit B-12) 1,000 mcg/mL injection solution RxNorm: 059544 1Milliliter 07/05/2016 No longer Active cyanocobalamin (vit B-12) 1,000 mcg/mL injection solution RxNorm: 486242 1Milliliter 06/22/2016 No longer Active cyanocobalamin (vit B-12) 1,000 mcg/mL injection solution RxNorm: 317006 Milliliter 06/09/2016 No longer Active cyanocobalamin (vit B-12) 1,000 mcg/mL injection solution RxNorm: 442264 1Milliliter 05/25/2016 No longer Active cyanocobalamin (vit B-12) 1,000 mcg/mL injection solution RxNorm: 396429 Milliliter 05/10/2016 No longer Active cyanocobalamin (vit B-12) 1,000 mcg/mL injection solution RxNorm: 133842 Milliliter 04/26/2016 No longer Active cyanocobalamin (vit B-12) 1,000 mcg/mL injection solution RxNorm: 720325 Milliliter 04/11/2016 No longer Active cyanocobalamin (vit B-12) 1,000 mcg/mL injection solution RxNorm: 495095 Milliliter 03/31/2016 No longer Active cyanocobalamin (vit B-12) 1,000 mcg/mL injection solution RxNorm: 361855 1Milliliter 03/15/2016 No longer Active cyanocobalamin (vit B-12) 1,000 mcg/mL injection solution RxNorm: 291718 Milliliter 02/25/2016 No longer Active cyanocobalamin (vit B-12) 1,000 mcg/mL injection solution RxNorm: 779151 1Milliliter 02/02/2016 No longer Active cyanocobalamin (vit B-12) 1,000 mcg/mL injection solution RxNorm: 842491 Milliliter 01/18/2016 No longer Active cyanocobalamin (vit B-12) 1,000 mcg/mL injection solution RxNorm: 361385 Milliliter 12/29/2015 No longer Active cyanocobalamin (vit B-12) 1,000 mcg/mL injection solution RxNorm: 574161 Milliliter 12/08/2015 No longer Active cyanocobalamin (vit B-12) 1,000 mcg/mL injection solution RxNorm: 219081 Milliliter 11/23/2015 No longer Active cyanocobalamin (vit B-12) 1,000 mcg/mL injection solution RxNorm: 079058 Milliliter 11/11/2015 No longer Active cyanocobalamin (vit B-12) 1,000 mcg/mL injection solution RxNorm: 936116 1Milliliter 10/29/2015 No longer Active cyanocobalamin (vit B-12) 1,000 mcg/mL injection solution RxNorm: 294505 1Milliliter 10/12/2015 No longer Active cyanocobalamin (vit B-12) 1,000 mcg/mL injection solution RxNorm: 584297 1Milliliter 09/29/2015 No longer Active cyanocobalamin (vit B-12) 1,000 mcg/mL injection solution RxNorm: 954940 1Milliliter 09/17/2015 No longer Active cyanocobalamin (vit B-12) 1,000 mcg/mL injection solution RxNorm: 352459 1Milliliter 09/03/2015 No longer Active cyanocobalamin (vit B-12) 1,000 mcg/mL injection solution RxNorm: 924905 Milliliter 08/17/2015 No longer Active cyanocobalamin (vit B-12) 1,000 mcg/mL injection solution RxNorm: 208177 Milliliter 08/06/2015 No longer Active cyanocobalamin (vit B-12) 1,000 mcg/mL injection solution RxNorm: 303865 Milliliter 07/22/2015 No longer Active cyanocobalamin (vit B-12) 1,000 mcg/mL injection solution RxNorm: 196197 Milliliter 07/08/2015 No longer Active cyanocobalamin (vit B-12) 1,000 mcg/mL injection solution RxNorm: 156995 Milliliter 06/23/2015 No longer Active cyanocobalamin (vit B-12) 1,000 mcg/mL injection solution RxNorm: 026047 1Milliliter 06/08/2015 No longer Active cyanocobalamin (vit B-12) 1,000 mcg/mL injection solution RxNorm: 973475 Milliliter 05/27/2015 No longer Active cyanocobalamin (vit B-12) 1,000 mcg/mL injection solution RxNorm: 139897 1Milliliter 05/12/2015 No longer Active cyanocobalamin (vit B-12) 1,000 mcg/mL injection kit RxNorm: 896401 kit 04/30/2015 No longer Active cyanocobalamin (vit B-12) 1,000 mcg/mL injection solution RxNorm: 514324 Milliliter 04/16/2015 No longer Active cyanocobalamin (vit B-12) 1,000 mcg/mL injection solution RxNorm: 984702 Milliliter 04/02/2015 No longer Active cyanocobalamin (vit B-12) 1,000 mcg/mL injection solution RxNorm: 274636 Milliliter 03/18/2015 No longer Active cyanocobalamin (vit B-12) 1,000 mcg/mL injection solution RxNorm: 234506 Milliliter 03/03/2015 No longer Active cyanocobalamin (vit B-12) 1,000 mcg/mL injection solution RxNorm: 415470 Milliliter 02/18/2015 No longer Active cyanocobalamin (vit B-12) 1,000 mcg/mL injection solution RxNorm: 346767 Milliliter 02/04/2015 No longer Active cyanocobalamin (vit B-12) 1,000 mcg/mL injection solution RxNorm: 841620 Milliliter 01/22/2015 No longer Active cyanocobalamin (vit B-12) 1,000 mcg/mL injection solution RxNorm: 266640 Milliliter 01/08/2015 No longer Active cyanocobalamin (vit B-12) 1,000 mcg/mL injection solution RxNorm: 676121 Milliliter 12/25/2014 No longer Active cyanocobalamin (vit B-12) 1,000 mcg/mL injection solution RxNorm: 366018 Milliliter 12/10/2014 No longer Active cyanocobalamin (vit B-12) 1,000 mcg/mL injection solution RxNorm: 192565 Milliliter 11/26/2014 No longer Active cyanocobalamin (vit B-12) 1,000 mcg/mL injection kit RxNorm: 552121 Milliliter 11/12/2014 No longer Active cyanocobalamin (vit B-12) 1,000 mcg/mL injection solution RxNorm: 838702 Milliliter 10/28/2014 No longer Active Immunizations Vaccine Codes Date Status Influenza CVX: 141 03/16/2018 completed Influenza CVX: 141 03/22/2017 completed Pneumococcal (Adult) CVX: 33 05/25/2016 completed Influenza CVX: 141 03/15/2016 completed Assessments Condition Codes Effective Dates 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 ICD-9: 281.1 09/11/2018 Essential (primary) hypertension ICD-10: I10 ICD-9: 401.9 [...] Code Item Item Code Result Date Microalbumin [id number] MicroAlb <0.7 mg/dL 09/11/2018 Tsh Ord6 TSH (3rd IS) 6.48 uIU/mL 09/10/2018 Free T4 Vpm987 FREE T4 0.89 ng/dL 09/10/2018 Lipid Ord30 CHOL 177 mg/dL 09/10/2018 Lipid Ord30 HDL 64.0 mg/dl 09/10/2018 Lipid Ord30 TRIG 126 mg/dL 09/10/2018 Lipid Ord30 LDL 88 mg/dL 09/10/2018 Lipid Ord30 C/HDL 2.8 Ratio 09/10/2018 Comp Metabolic Bhw494 NA 139 mEq/L 09/10/2018 Comp Metabolic Wvh946 K 4.8 mEq/L 09/10/2018 Comp Metabolic Mni402 CL 103 mEq/L 09/10/2018 Comp Metabolic Prv763 CO2 25.0 mEq/L 09/10/2018 Comp Metabolic Pjc980 ANION GAP 16 09/10/2018 Comp Metabolic Onk591 GLUCOSE 104 mg/dL 09/10/2018 Comp Metabolic Rpo662 Creat 1.0 mg/dL 09/10/2018 Comp Metabolic Ate372 eGFR 54 ml/min/1.73m2 09/10/2018 Comp Metabolic Atw849 BUN 25 mg/dL 09/10/2018 Comp Metabolic Pya252 B/C Ratio 24.3 Ratio 09/10/2018 Comp Metabolic Iuh993 CALCIUM 9.3 mg/dL 09/10/2018 Comp Metabolic Wco541 ALK PHOS 71 U/L 09/10/2018 Comp Metabolic Jiz166 AST(SGOT) 25 U/L 09/10/2018 Comp Metabolic Nii935 ALT(SGPT) 28 U/L 09/10/2018 Comp Metabolic Aox765 BILI T 0.7 mg/dL 09/10/2018 Comp Metabolic Qho839 ALBUMIN 4.2 g/dL 09/10/2018 Comp Metabolic Swd430 TPRO 6.5 g/dL 09/10/2018 Comp Metabolic Tlz529 GLOB 2.3 g/dL 09/10/2018 Comp Metabolic Edy524 A/G Ratio 1.8 Ratio 09/10/2018 Comp Metabolic Dih943 Osmo 282 mOsmo 09/10/2018 Cbc With Differential [...] 27.7 pg 09/10/2018 Cbc With Differential Ord2 [place]% 8.8 % 09/10/2018 Cbc With Differential Ord2 [...] 2.24 K/ul 09/10/2018 Cbc With Differential Ord2 [place] ABS# 0.6 K/ul 09/10/2018 Cbc With Differential Ord2 Eos ABS# 0.2 K/ul 09/10/2018 Cbc With Differential Ord2 Baso ABS# 0.1 K/ul 09/10/2018 %Hba1C Vhn819 % HbA1c 50819- 6 6.0 % 09/10/2018 %Hba1C [id number] Gluc Ave 126 mg/dL 09/10/2018 Test(s) Not Perfromed [id number] Test(s) Not Performed Test(s) Not Performed. See Below: 09/10/2018 Test(s) Not Perfromed [id number] TEST NAME Microalbumin 09/10/2018 Test(s) Not Perfromed [id number] Rejection Reason Patient Unable to Void 09/10/2018 Test(s) Not Perfromed [id number] COMMENT Patient to deliver sample to the lab at a later date 09/10/2018 Test(s) Not Perfromed [id number] Trimmer Helper Favio Mulligan 09/10/2018 Lipid Ord30 CHOL 174 mg/dL 05/29/2018 Lipid Ord30 HDL 49.0 mg/dl 05/29/2018 Lipid Ord30 TRIG 200 mg/dL 05/29/2018 Lipid Ord30 LDL 85 mg/dL 05/29/2018 Lipid Ord30 C/HDL 3.6 Ratio 05/29/2018 Tsh Ord6 TSH (3rd IS) 3.20 uIU/mL 02/26/2018 Free T4 Xct437 FREE T4 0.99 ng/dL 02/26/2018 Cbc With [...] 28.5 pg 02/26/2018 Cbc With Differential Ord2 [place]% 10.3 % 02/26/2018 Cbc With Differential Ord2 [...] 1.80 K/ul 02/26/2018 Cbc With Differential Ord2 [place] ABS# 0.7 K/ul 02/26/2018 Cbc With Differential Ord2 Eos ABS# 0.2 K/ul 02/26/2018 Cbc With Differential Ord2 Baso ABS# 0.0 K/ul 02/26/2018 B12 Puy699 B12 889.00 pg/ml 02/26/2018 Digoxin Ord9 DIGOXIN 0.7 NG/ML 11/23/2017 Comp Metabolic Tlp988 NA 142 mEq/L 11/23/2017 Comp Metabolic Lrc323 K 4.9 mEq/L 11/23/2017 Comp Metabolic Vce764 CL 112 mEq/L 11/23/2017 Comp Metabolic Jyn945 CO2 18.0 mEq/L 11/23/2017 Comp Metabolic Cbu371 ANION GAP 17 11/23/2017 Comp Metabolic Bjh043 GLUCOSE 123 mg/dL 11/23/2017 Comp Metabolic Oer233 Creat 1.0 mg/dL 11/23/2017 Comp Metabolic Rvf789 eGFR 59 ml/min/1.73m2 11/23/2017 Comp Metabolic Rym236 BUN 24 mg/dL 11/23/2017 Comp Metabolic Ukv048 B/C Ratio 25.0 Ratio 11/23/2017 Comp Metabolic Oyv970 CALCIUM 9.4 mg/dL 11/23/2017 Comp Metabolic Lbc188 ALK PHOS 56 U/L 11/23/2017 Comp Metabolic Wkg117 AST(SGOT) 17 U/L 11/23/2017 Comp Metabolic Dto355 ALT(SGPT) 16 U/L 11/23/2017 Comp Metabolic Iqb181 BILI T 0.7 mg/dL 11/23/2017 Comp Metabolic Clc452 ALBUMIN 3.8 g/dL 11/23/2017 Comp Metabolic Bvr813 TPRO 6.2 g/dL 11/23/2017 Comp Metabolic Pox251 GLOB 2.4 g/dL 11/23/2017 Comp Metabolic Zbu341 A/G Ratio 1.6 Ratio 11/23/2017 Comp Metabolic Yiu504 Osmo 289 mOsmo 11/23/2017 Free T4 Fmc017 FREE T4 1.04 ng/dL 11/23/2017 %Hba1C Byy164 % HbA1c 14482- 6 6.4 % 11/23/2017 %Hba1C Cli775 Gluc Ave 137 mg/dL 11/23/2017 Lipid Ord30 CHOL 179 mg/dL 11/23/2017 Lipid Ord30 HDL 51.0 mg/dl 11/23/2017 Lipid Ord30 TRIG 134 mg/dL 11/23/2017 Lipid Ord30 LDL 101 mg/dL 11/23/2017 Lipid Ord30 C/HDL 3.5 Ratio 11/23/2017 Tsh Ord6 TSH (3rd IS) 1.00 uIU/mL 11/23/2017 Microalbumin Cdr419 MicroAlb <0.7 mg/dL 11/23/2017 Comp Metabolic Qcm295 NA 141 mEq/L 01/23/2017 Comp Metabolic Amd444 K 4.5 mEq/L 01/23/2017 Comp Metabolic Dll223 CL 107 mEq/L 01/23/2017 Comp Metabolic Ytm708 CO2 21.0 mEq/L 01/23/2017 Comp Metabolic San099 ANION GAP 18 01/23/2017 Comp Metabolic Ubs246 GLUCOSE 138 mg/dL 01/23/2017 Comp Metabolic Alm404 Creat 1.0 mg/dL 01/23/2017 Comp Metabolic Rbq898 eGFR 56 ml/min/1.73m2 01/23/2017 Comp Metabolic Krk020 BUN 26 mg/dL 01/23/2017 Comp Metabolic Qfd764 B/C Ratio 25.7 Ratio 01/23/2017 Comp Metabolic Loh069 CALCIUM 9.0 mg/dL 01/23/2017 Comp Metabolic Pev919 ALK PHOS 37 U/L 01/23/2017 Comp Metabolic Rgi475 AST(SGOT) 20 U/L 01/23/2017 Comp Metabolic Eja466 ALT(SGPT) 25 U/L 01/23/2017 Comp Metabolic Fxc658 BILI T 0.9 mg/dL 01/23/2017 Comp Metabolic Flo961 ALBUMIN 3.8 g/dL 01/23/2017 Comp Metabolic Afb151 TPRO 6.5 g/dL 01/23/2017 Comp Metabolic Fzk271 GLOB 2.7 g/dL 01/23/2017 Comp Metabolic Fyu332 A/G Ratio 1.4 Ratio 01/23/2017 Comp Metabolic Obw744 Osmo 288 mOsmo 01/23/2017 Free T4 Soh375 FREE T4 1.05 ng/dL 01/23/2017 %Hba1C Ana300 % HbA1c 72920- 6 6.1 % 01/23/2017 %Hba1C Gqj667 Gluc Ave 128 mg/dL 01/23/2017 Tsh Ord6 hTSH II 1.68 uIU/mL 01/23/2017 Culture Urine [id number] URINE CULTURE SEE NOTES 11/10/2016 Culture Urine [id number] Continued Results 11/10/2016 Urine Culture Ucult Complete [...] Ord15 CALCIUM 9.3 mg/dL 09/29/2016 Free T4 Cbr498 FREE T4 0.99 ng/dL 09/07/2016 Cbc With [...] 30.0 pg 09/07/2016 Cbc With Differential Ord2 [place]% 9.8 % 09/07/2016 Cbc With Differential Ord2 [...] 1.75 K/ul 09/07/2016 Cbc With Differential Ord2 [place] ABS# 0.6 K/ul 09/07/2016 Cbc With Differential Ord2 Eos ABS# 0.1 K/ul 09/07/2016 Cbc With Differential Ord2 Baso ABS# 0.0 K/ul 09/07/2016 Tsh Ord6 hTSH II 1.41 uIU/mL 09/07/2016 Culture Urine [id number] URINE CULTURE SEE NOTES 06/27/2016 Lipid Ord30 CHOL 196 mg/dL 06/22/2016 Lipid Ord30 HDL 63.0 mg/dl 06/22/2016 Lipid Ord30 TRIG 154 mg/dL 06/22/2016 Lipid Ord30 LDL 102 mg/dL 06/22/2016 Lipid Ord30 C/HDL 3.1 Ratio 06/22/2016 Hepatic Cgj782 ALBUMIN 4.2 g/dL 06/22/2016 Hepatic Lly731 TPRO 7.0 g/dL 06/22/2016 Hepatic Icp116 GLOB 2.8 g/dL 06/22/2016 Hepatic Bls833 A/G Ratio 1.5 Ratio 06/22/2016 Hepatic Vge539 ALK PHOS 54 U/L 06/22/2016 Hepatic Uqx683 ALT(SGPT) 30 U/L 06/22/2016 Hepatic Kln890 AST(SGOT) 24 U/L 06/22/2016 Hepatic Ibz134 BILI T 1.1 mg/dL 06/22/2016 Hepatic Jhe065 BILI D 0.2 mg/dL 06/22/2016 Hepatic Ekx942 BILI I 0.9 mg/dL 06/22/2016 Comp Metabolic Sid304 NA 139 mEq/L 06/14/2016 Comp Metabolic Aly110 K 4.6 mEq/L 06/14/2016 Comp Metabolic Dgj469 CL 108 mEq/L 06/14/2016 Comp Metabolic Isx462 CO2 22.0 mEq/L 06/14/2016 Comp Metabolic Tdo663 ANION GAP 14 06/14/2016 Comp Metabolic Whq635 GLUCOSE 114 mg/dL 06/14/2016 Comp Metabolic Kkp806 Creat 1.2 mg/dL 06/14/2016 Comp Metabolic Nxb396 eGFR 48 ml/min/1.73m2 06/14/2016 Comp Metabolic Lrb082 BUN 24 mg/dL 06/14/2016 Comp Metabolic Aav530 B/C Ratio 20.9 Ratio 06/14/2016 Comp Metabolic Auo521 CALCIUM 9.9 mg/dL 06/14/2016 Comp Metabolic Xkd590 ALK PHOS 47 U/L 06/14/2016 Comp Metabolic Xfu805 AST(SGOT) 28 U/L 06/14/2016 Comp Metabolic Vir128 ALT(SGPT) 32 U/L 06/14/2016 Comp Metabolic Owb221 BILI T 0.9 mg/dL 06/14/2016 Comp Metabolic Dyf597 ALBUMIN 4.1 g/dL 06/14/2016 Comp Metabolic Fkr959 TPRO 6.9 g/dL 06/14/2016 Comp Metabolic Krw189 GLOB 2.8 g/dL 06/14/2016 Comp Metabolic Jza302 A/G Ratio 1.5 Ratio 06/14/2016 Comp Metabolic Xrs566 Osmo 282 mOsmo 06/14/2016 Tsh Ord6 hTSH II 1.26 uIU/mL 06/14/2016 Free T4 Qks431 FREE T4 1.09 ng/dL 06/14/2016 Tsh Ord6 hTSH II 0.28 uIU/mL 02/02/2016 Digoxin Ord9 DIGOXIN 0.7 NG/ML 02/02/2016 Free T4 Ulx572 FREE T4 1.23 ng/dL 02/02/2016 Hepatic Lbw818 ALBUMIN 4.0 g/dL 02/02/2016 Hepatic Fwh237 TPRO 7.0 g/dL 02/02/2016 Hepatic Xfs040 GLOB 3.0 g/dL 02/02/2016 Hepatic Lyo384 A/G Ratio 1.3 Ratio 02/02/2016 Hepatic Ins233 ALK PHOS 57 U/L 02/02/2016 Hepatic Gga514 ALT(SGPT) 62 U/L 02/02/2016 Hepatic Acb896 AST(SGOT) 54 U/L 02/02/2016 Hepatic Elg680 BILI T 0.8 mg/dL 02/02/2016 Hepatic Yhy692 BILI D 0.2 mg/dL 02/02/2016 Hepatic Qsx661 BILI I 0.6 mg/dL 02/02/2016 Urine Culture Ucult Preliminary No Growth Day 1 11/25/2015 Urine Culture Ucult Complete No Growth Day 2 11/25/2015 Hepatic Rxy273 ALBUMIN 3.9 g/dL 11/11/2015 Hepatic Jwu993 TPRO 7.0 g/dL 11/11/2015 Hepatic Yoa427 GLOB 3.1 g/dL 11/11/2015 Hepatic Kfz523 A/G Ratio 1.3 Ratio 11/11/2015 Hepatic Wko464 ALK PHOS 63 U/L 11/11/2015 Hepatic Oyr716 ALT(SGPT) 107 U/L 11/11/2015 Hepatic Alx959 AST(SGOT) 101 U/L 11/11/2015 Hepatic Djf250 BILI T 0.6 mg/dL 11/11/2015 Hepatic Gzp253 BILI D 0.1 mg/dL 11/11/2015 Hepatic Iws927 BILI I 0.5 mg/dL 11/11/2015 Comp Metabolic Rml472 NA 138 mEq/L 10/29/2015 Comp Metabolic Hkt533 K 5.0 mEq/L 10/29/2015 Comp Metabolic Uxz578 CL 105 mEq/L 10/29/2015 Comp Metabolic Ccg904 CO2 23.0 mEq/L 10/29/2015 Comp Metabolic Sfa115 ANION GAP 15 10/29/2015 Comp Metabolic Qye308 GLUCOSE 105 mg/dL 10/29/2015 Comp Metabolic Mmq020 Creat 1.0 mg/dL 10/29/2015 Comp Metabolic Qpw598 eGFR 55 ml/min/1.73m2 10/29/2015 Comp Metabolic Oxw386 BUN 20 mg/dL 10/29/2015 Comp Metabolic Nns279 B/C Ratio 19.4 Ratio 10/29/2015 Comp Metabolic Sjs713 CALCIUM 8.8 mg/dL 10/29/2015 Comp Metabolic Rgh153 ALK PHOS 56 U/L 10/29/2015 Comp Metabolic Zus016 AST(SGOT) 66 U/L 10/29/2015 Comp Metabolic Dfc403 ALT(SGPT) 78 U/L 10/29/2015 Comp Metabolic Mxo230 BILI T 0.7 mg/dL 10/29/2015 Comp Metabolic Eam893 ALBUMIN 3.6 g/dL 10/29/2015 Comp Metabolic Dta183 TPRO 6.6 g/dL 10/29/2015 Comp Metabolic Xpi772 GLOB 3.0 g/dL 10/29/2015 Comp Metabolic Hyl187 A/G Ratio 1.2 Ratio 10/29/2015 Comp Metabolic Qnd478 Osmo 279 mOsmo 10/29/2015 Comp Metabolic Gge477 NA 136 mEq/L 09/03/2015 Comp Metabolic Oju669 K 4.4 mEq/L 09/03/2015 Comp Metabolic Nzr620 CL 103 mEq/L 09/03/2015 Comp Metabolic Gaa303 CO2 24.0 mEq/L 09/03/2015 Comp Metabolic Ygn523 ANION GAP 13 09/03/2015 Comp Metabolic Ydk120 GLUCOSE 87 mg/dL 09/03/2015 Comp Metabolic Qti098 Creat 1.1 mg/dL 09/03/2015 Comp Metabolic Rqi261 eGFR 53 ml/min/1.73m2 09/03/2015 Comp Metabolic Maz029 BUN 17 mg/dL 09/03/2015 Comp Metabolic Wrp752 B/C Ratio 16.2 Ratio 09/03/2015 Comp Metabolic Ydx783 CALCIUM 9.0 mg/dL 09/03/2015 Comp Metabolic Lwc824 ALK PHOS 55 U/L 09/03/2015 Comp Metabolic Idc882 AST(SGOT) 83 U/L 09/03/2015 Comp Metabolic Pbd578 ALT(SGPT) 126 U/L 09/03/2015 Comp Metabolic Xte846 BILI T 0.9 mg/dL 09/03/2015 Comp Metabolic Wsc268 ALBUMIN 3.9 g/dL 09/03/2015 Comp Metabolic Aql658 TPRO 6.8 g/dL 09/03/2015 Comp Metabolic Jgn673 GLOB 2.9 g/dL 09/03/2015 Comp Metabolic Gsl772 A/G Ratio 1.4 Ratio 09/03/2015 Comp Metabolic Gda016 Osmo 273 mOsmo 09/03/2015 Total T3 Ord42 TT3 0.6 ng/ml 07/09/2015 Tsh Ord6 hTSH II 1.62 uIU/mL 07/09/2015 Total T3 Ord42 TT3 0.5 ng/ml 04/02/2015 Free T4 Kkt208 FREE T4 1.23 ng/dL 04/02/2015 Tsh Ord6 [...] Procedure Codes Date THER/PROPH/DIAG INJ SC/IM CPT-4: 41375 09/11/2018 THER/PROPH/DIAG INJ SC/IM CPT-4: 64504 08/29/2018 THER/PROPH/DIAG INJ SC/IM CPT-4: 92058 08/15/2018 TRIAMCINOLONE ACET INJ NOS CPT-4: J3301 08/15/2018 THER/PROPH/DIAG INJ SC/IM CPT-4: 77793 08/01/2018 VITAMIN B12 INJECTION CPT- 4: J3420 08/01/2018 THER/PROPH/DIAG INJ SC/IM CPT-4: 33131 07/19/2018 THER/PROPH/DIAG INJ SC/IM CPT-4: 24369 07/04/2018 THER/PROPH/DIAG INJ SC/IM CPT-4: 82383 06/20/2018 THER/PROPH/DIAG INJ SC/IM CPT-4: 78270 06/06/2018 VITAMIN B12 INJECTION CPT- 4: J3420 06/06/2018 THER/PROPH/DIAG INJ SC/IM CPT-4: 29080 05/24/2018 THER/PROPH/DIAG INJ SC/IM CPT-4: 03929 05/09/2018 THER/PROPH/DIAG INJ SC/IM CPT-4: 80364 04/26/2018 VITAMIN B12 INJECTION CPT- 4: J3420 04/26/2018 THER/PROPH/DIAG INJ SC/IM CPT-4: 76851 04/12/2018 THER/PROPH/DIAG INJ SC/IM CPT-4: 74061 03/30/2018 THER/PROPH/DIAG INJ SC/IM CPT-4: 41006 03/16/2018 VITAMIN B12 INJECTION CPT- 4: J3420 03/16/2018 ADMIN INFLUENZA VIRUS VAC CPT-4: G0008 03/16/2018 FLU VACC PRSV FREE INC ANTIG Formatting Model/CDA Sections, Assigned to/Nga Ojeda CPT-4: [id number] 03/16/2018 THER/PROPH/DIAG INJ SC/IM CPT-4: 20431 03/02/2018 THER/PROPH/DIAG INJ SC/IM CPT-4: 46385 02/08/2018 THER/PROPH/DIAG INJ SC/IM CPT-4: 43716 01/24/2018 THER/PROPH/DIAG INJ SC/IM CPT-4: 98071 01/10/2018 THER/PROPH/DIAG INJ SC/IM CPT-4: 64180 12/27/2017 VITAMIN B12 INJECTION CPT- 4: J3420 12/27/2017 THER/PROPH/DIAG INJ SC/IM CPT-4: 88472 12/12/2017 THER/PROPH/DIAG INJ SC/IM CPT-4: 88941 12/01/2017 VITAMIN B12 INJECTION CPT- 4: J3420 12/01/2017 THER/PROPH/DIAG INJ SC/IM CPT-4: 58260 11/17/2017 THER/PROPH/DIAG INJ SC/IM CPT-4: 77959 11/02/2017 THER/PROPH/DIAG INJ SC/IM CPT-4: 61156 10/20/2017 THER/PROPH/DIAG INJ SC/IM CPT-4: 36095 10/06/2017 THER/PROPH/DIAG INJ SC/IM CPT-4: 96451 09/21/2017 TRIAMCINOLONE ACET INJ NOS CPT-4: J3301 09/15/2017 THER/PROPH/DIAG INJ SC/IM CPT-4: 20579 09/07/2017 THER/PROPH/DIAG INJ SC/IM CPT-4: 71106 08/24/2017 THER/PROPH/DIAG INJ SC/IM CPT-4: 58250 07/06/2017 THER/PROPH/DIAG INJ SC/IM CPT-4: 30008 06/20/2017 TRIAMCINOLONE ACET INJ NOS CPT-4: J3301 06/20/2017 PPPS, SUBSEQ VISIT CPT- 4: G0439 06/05/2017 THER/PROPH/DIAG INJ SC/IM CPT-4: 89884 06/05/2017 THER/PROPH/DIAG INJ SC/IM CPT-4: 91329 05/25/2017 VITAMIN B12 INJECTION CPT- 4: J3420 05/25/2017 THER/PROPH/DIAG INJ SC/IM CPT-4: 56742 05/16/2017 THER/PROPH/DIAG INJ SC/IM CPT-4: 74671 05/01/2017 THER/PROPH/DIAG INJ SC/IM CPT-4: 53100 04/18/2017 THER/PROPH/DIAG INJ SC/IM CPT-4: 30698 04/06/2017 ADMIN INFLUENZA VIRUS VAC CPT-4: G0008 03/22/2017 FLU VACC PRSV FREE INC ANTIG CPT-4: 73320 03/22/2017 THER/PROPH/DIAG INJ SC/IM CPT-4: 42747 03/09/2017 THER/PROPH/DIAG INJ SC/IM CPT-4: 63796 02/23/2017 THER/PROPH/DIAG INJ SC/IM CPT-4: 91102 02/09/2017 THER/PROPH/DIAG INJ SC/IM CPT-4: 86579 01/23/2017 THER/PROPH/DIAG INJ SC/IM CPT-4: 83656 01/10/2017 THER/PROPH/DIAG INJ SC/IM CPT-4: 59765 12/28/2016 THER/PROPH/DIAG INJ SC/IM CPT-4: 19304 12/14/2016 THER/PROPH/DIAG INJ SC/IM CPT-4: 32154 11/24/2016 URINALYSIS NONAUTO W/O SCOPE CPT-4: 52364 11/07/2016 THER/PROPH/DIAG INJ SC/IM CPT-4: 64286 11/07/2016 THER/PROPH/DIAG INJ SC/IM CPT-4: 35581 10/24/2016 THER/PROPH/DIAG INJ SC/IM CPT-4: 46881 09/29/2016 THER/PROPH/DIAG INJ SC/IM CPT-4: 09805 08/29/2016 THER/PROPH/DIAG INJ SC/IM CPT-4: 63687 08/04/2016 THER/PROPH/DIAG INJ SC/IM CPT-4: 62639 07/21/2016 THER/PROPH/DIAG INJ SC/IM CPT-4: 78035 07/05/2016 THER/PROPH/DIAG INJ SC/IM CPT-4: 69187 06/22/2016 URINALYSIS NONAUTO W/O SCOPE CPT-4: 95930 06/22/2016 THER/PROPH/DIAG INJ SC/IM CPT-4: 80112 06/09/2016 PPPS, SUBSEQ VISIT CPT- 4: G0439 05/30/2016 ADMIN PNEUMOCOCCAL VACCINE SNOMED CT: 30764750 CPT-4: G0009 05/25/2016 Pneumococcal Polysaccharide Vaccine, 23-Valent, Ad CPT-4: 21876 05/25/2016 THER/PROPH/DIAG INJ SC/IM CPT-4: 38208 05/25/2016 THER/PROPH/DIAG INJ SC/IM CPT-4: 76527 05/10/2016 TRIAMCINOLONE ACET INJ NOS CPT-4: J3301 04/26/2016 VITAMIN B12 INJECTION CPT- 4: J3420 04/26/2016 THER/PROPH/DIAG INJ SC/IM CPT-4: 70917 04/11/2016 THER/PROPH/DIAG INJ SC/IM CPT-4: 30262 03/31/2016 ADMIN INFLUENZA VIRUS VAC CPT-4: G0008 03/15/2016 FLU VACC 4 STEPHANIE 3 YRS PLUS IM SNOMED CT: 75833645 CPT-4: 34791 03/15/2016 THER/PROPH/DIAG INJ SC/IM CPT-4: 84495 02/25/2016 THER/PROPH/DIAG INJ SC/IM CPT-4: 54192 02/02/2016 THER/PROPH/DIAG INJ SC/IM CPT-4: 10499 01/18/2016 VITAMIN B12 INJECTION CPT- 4: J3420 12/29/2015 THER/PROPH/DIAG INJ SC/IM CPT-4: 03584 12/29/2015 THER/PROPH/DIAG INJ SC/IM CPT-4: 95174 12/08/2015 THER/PROPH/DIAG INJ SC/IM CPT-4: 29802 11/23/2015 URINALYSIS NONAUTO W/O SCOPE CPT-4: 24735 11/23/2015 THER/PROPH/DIAG INJ SC/IM CPT-4: 79981 11/11/2015 THER/PROPH/DIAG INJ SC/IM CPT-4: 25322 10/29/2015 THER/PROPH/DIAG INJ SC/IM CPT-4: 34431 10/12/2015 VITAMIN B12 INJECTION CPT- 4: J3420 10/12/2015 THER/PROPH/DIAG INJ SC/IM CPT-4: 33975 09/29/2015 THER/PROPH/DIAG INJ SC/IM CPT-4: 87552 09/17/2015 THER/PROPH/DIAG INJ SC/IM CPT-4: 90654 09/03/2015 THER/PROPH/DIAG INJ SC/IM CPT-4: 50089 08/17/2015 THER/PROPH/DIAG INJ SC/IM CPT-4: 59201 08/06/2015 THER/PROPH/DIAG INJ SC/IM CPT-4: 31426 07/22/2015 THER/PROPH/DIAG INJ SC/IM CPT-4: 82076 07/08/2015 THER/PROPH/DIAG INJ SC/IM CPT-4: 66435 06/23/2015 THER/PROPH/DIAG INJ SC/IM CPT-4: 83848 06/08/2015 THER/PROPH/DIAG INJ SC/IM CPT-4: 77931 05/27/2015 DESTRUCT PREMALG LESION CPT-4: 27677 05/19/2015 DESTRUCT PREMALG LES 2-14 CPT-4: 18974 05/19/2015 THER/PROPH/DIAG INJ SC/IM CPT-4: 21742 05/12/2015 VITAMIN B12 INJECTION CPT- 4: J3420 05/12/2015 THER/PROPH/DIAG INJ SC/IM CPT-4: 14578 04/30/2015 VITAMIN B12 INJECTION CPT- 4: J3420 04/30/2015 THER/PROPH/DIAG INJ SC/IM CPT-4: 84644 04/16/2015 THER/PROPH/DIAG INJ SC/IM CPT-4: 73146 04/02/2015 VITAMIN B12 INJECTION CPT- 4: J3420 04/02/2015 THER/PROPH/DIAG INJ SC/IM CPT-4: 66981 03/18/2015 THER/PROPH/DIAG INJ SC/IM CPT-4: 06640 03/03/2015 THER/PROPH/DIAG INJ SC/IM CPT-4: 31917 02/18/2015 THER/PROPH/DIAG INJ SC/IM CPT-4: 92679 02/04/2015 VITAMIN B12 INJECTION CPT- 4: J3420 02/04/2015 THER/PROPH/DIAG INJ SC/IM CPT-4: 91248 01/22/2015 THER/PROPH/DIAG INJ SC/IM CPT-4: 58397 01/08/2015 VITAMIN B12 INJECTION CPT- 4: J3420 01/08/2015 THER/PROPH/DIAG INJ SC/IM CPT-4: 67088 12/25/2014 VITAMIN B12 INJECTION CPT- 4: J3420 12/25/2014 THER/PROPH/DIAG INJ SC/IM CPT-4: 63230 12/10/2014 VITAMIN B12 INJECTION CPT- 4: J3420 12/10/2014 THER/PROPH/DIAG INJ SC/IM CPT-4: 56971 11/26/2014 VITAMIN B12 INJECTION CPT- 4: J3420 11/26/2014 THER/PROPH/DIAG INJ SC/IM CPT-4: 04043 11/12/2014 VITAMIN B12 INJECTION CPT- 4: J3420 11/12/2014 THER/PROPH/DIAG INJ SC/IM CPT-4: 57439 10/28/2014 Vital Signs Date Vital 09/05/2018 Blood Pressure 1: 122/70 Code: 8480-6 BMI: 27.1 Code: 64687-3 Heart Rate 1: 90 bpm Height: 5'6" SpO2: 97% Weight: 168 lbs 08/15/2018 Blood Pressure 1: 142/76 Code: 8480-6 BMI: 27.4 Code: 84724-3 Heart Rate 1: 74 bpm Height: 5'6" SpO2: 95% Temperature: 36.7 (C) / 98.1 (F) Weight: 170 lbs 05/03/2018 Blood Pressure 1: 140/70 Code: 8480-6 BMI: 26.0 Code: 86456-1 Heart Rate 1: 70 bpm Height: 5'6" SpO2: 94% Weight: 161 lbs 04/26/2018 Height: 5'6" 02/26/2018 Blood Pressure 1: 130/72 Code: 8480-6 BMI: 27.9 Code: 17380-6 Heart Rate 1: 72 bpm Height: 5'6" SpO2: 93% Weight: 173 lbs 12/12/2017 Blood Pressure 1: 126/74 Code: 8480-6 BMI: 27.4 Code: 66133-5 Heart Rate 1: 83 bpm Height: 5'6" SpO2: 98% Weight: 170 lbs 12/04/2017 Blood Pressure 1: 104/68 Code: 8480-6 BMI: 28.2 Code: 66112-1 Heart Rate 1: 85 bpm Height: 5'6" SpO2: 95% Weight: 175 lbs 11/20/2017 Blood Pressure 1: 130/68 Code: 8480-6 BMI: 28.4 Code: 14869-1 Heart Rate 1: 80 bpm Height: 5'6" SpO2: 99% Weight: 176 lbs 11/02/2017 Height: 5'6" 09/15/2017 Blood Pressure 1: 134/74 Code: 8480-6 BMI: 28.4 Code: 78908-3 Heart Rate 1: 88 bpm Height: 5'6" SpO2: 98% Weight: 176 lbs 09/07/2017 Blood Pressure 1: 124/64 Code: 8480-6 Heart Rate 1: 90 bpm Height: SpO2: 97% Weight: 08/30/2017 Blood Pressure 1: 140/76 Code: 8480-6 BMI: 28.4 Code: 15881-3 Heart Rate 1: 90 bpm Height: 5'6" SpO2: 94% Weight: 176 lbs 07/06/2017 Blood Pressure 1: 132/66 Code: 8480-6 BMI: 29.4 Code: 88761-3 Heart Rate 1: 85 bpm Height: 5'6" SpO2: 97% Weight: 182 lbs 06/20/2017 Blood Pressure 1: 134/86 Code: 8480-6 Heart Rate 1: 90 bpm Height: SpO2: 98% Weight: 06/05/2017 BMI: 29.1 Code: 62159-5 Height: 5'6" Weight: 180 lbs 05/25/2017 Blood Pressure 1: 126/76 Code: 8480-6 BMI: 29.1 Code: 37062-1 Heart Rate 1: 77 bpm Height: 5'6" SpO2: 97% Weight: 180 lbs 03/23/2017 Blood Pressure 1: 142/84 Code: 8480-6 BMI: 29.1 Code: 75870-9 Heart Rate 1: 91 bpm Height: 5'6" SpO2: 97% Weight: 180 lbs 01/23/2017 Blood Pressure 1: 150/90 Code: 8480-6 BMI: 29.9 Code: 05468-7 Heart Rate 1: 81 bpm Height: 5'6" SpO2: 97% Weight: 185 lbs 11/02/2016 Blood Pressure 1: 148/78 Code: 8480-6 BMI: 29.7 Code: 95647-9 Heart Rate 1: 87 bpm Height: 5'6" SpO2: 97% Weight: 184 lbs 09/29/2016 Blood Pressure 1: 128/78 Code: 8480-6 BMI: 29.7 Code: 55442-4 Heart Rate 1: 78 bpm Height: 5'6" SpO2: 98% Weight: 184 lbs 07/26/2016 Blood Pressure 1: 138/72 Code: 8480-6 BMI: 30.0 Code: 64403-1 Heart Rate 1: 85 bpm Height: 5'6" SpO2: 97% Weight: 186 lbs 05/30/2016 Blood Pressure 1: 132/76 Code: 8480-6 BMI: 30.0 Code: 33376-7 Heart Rate 1: 80 bpm Height: 5'6" SpO2: 98% Waist Measure (cm): 99 cm Weight: 186 lbs 05/25/2016 Blood Pressure 1: 132/76 Code: 8480-6 BMI: 30.0 Code: 80973-4 Heart Rate 1: 80 bpm Height: 5'6" SpO2: 96% Weight: 186 lbs 02/25/2016 Blood Pressure 1: 110/64 Code: 8480-6 Heart Rate 1: 82 bpm Height: SpO2: 96% Weight: 01/25/2016 Blood Pressure 1: 118/70 Code: 8480-6 BMI: 30.0 Code: 86728-6 Heart Rate 1: 78 bpm Height: 5'6" SpO2: 97% Weight: 186 lbs 11/11/2015 Blood Pressure 1: 128/82 Code: 8480-6 BMI: 29.2 Code: 13107-2 Heart Rate 1: 86 bpm Height: 5'6" SpO2: 96% Temperature: 36.4 (C) / 97.6 (F) Weight: 181 lbs 10/12/2015 Blood Pressure 1: 118/70 Code: 8480-6 BMI: 29.2 Code: 44179-0 Heart Rate 1: 81 bpm Height: 5'6" SpO2: 95% Weight: 181 lbs 09/03/2015 Blood Pressure 1: 138/78 Code: 8480-6 BMI: 29.9 Code: 01300-1 Heart Rate 1: 88 bpm Height: 5'6" SpO2: 97% Weight: 185 lbs 05/19/2015 Blood Pressure 1: 146/78 Code: 8480-6 BMI: 30.0 Code: 20134-7 Heart Rate 1: 66 bpm Height: 5'6" SpO2: 97% Weight: 186 lbs 05/12/2015 Blood Pressure 1: 120/70 Code: 8480-6 BMI: 29.9 Code: 39813-3 Heart Rate 1: 89 bpm Height: 5'6" SpO2: 95% Weight: 185 lbs 01/13/2015 Blood Pressure 1: 140/90 Code: 8480-6 BMI: 30.3 Code: 07755-4 Heart Rate 1: 84 bpm Height: 5'6" SpO2: 95% Weight: 188 lbs 12/16/2014 Blood Pressure 1: 140/82 Code: 8480-6 BMI: 29.5 Code: 62991-5 Heart Rate 1: 86 bpm Height: 5'6" [...] data Encounters Encounter Performer Location Codes Date ) [id number] EST. PATIENT, LEVEL IV Diagnosis: Essential (primary) hypertension[ICD10: I10] Diagnosis: Type 2 diabetes mellitus without complications[ICD10: E11.9] Diagnosis: Atrophy of thyroid (acquired)[ICD10: E03.4] Diagnosis: Other vitamin B12 deficiency anemias[ICD10: D51.8] Yarely Vega MD, [facility] CPT-4: 86392 09/05/2018 [id number] EST. PATIENT, LEVEL IV Diagnosis: Acute bronchitis due to other specified organisms[ICD10: J20.8] Diagnosis: Cough[ICD10: R05] Diagnosis: 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 factor deficiency[ICD10: D51.0] Brianna Vega MD, [facility] CPT-4: 02302 08/15/2018 ([id number]) 29852 EST. PATIENT, LEVEL IV Diagnosis: Essential (primary) hypertension[ICD10: I10] Diagnosis: Type 2 diabetes mellitus without complications[ICD10: E11.9] [facility] CPT-4: 67031 05/03/2018 [id number]) 02979 EST. PATIENT, LEVEL III Diagnosis: Pain in left shoulder[ICD10: M25.512] Diagnosis: Pain in right shoulder[ICD10: M25.511] Yarely Vega MD, [facility] CPT-4: 62227 02/26/2018 [id number]) 00454 EST. PATIENT, LEVEL III Diagnosis: Nausea[ICD10: R11.0] Diagnosis: Cough[ICD10: R05] Diagnosis: 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 factor deficiency[ICD10: D51.0] Janet Vega MD, [facility] CPT-4: 17018 12/12/2017 ([id number]) 33992 EST. PATIENT, LEVEL IV Diagnosis: Acute bronchitis due to Hemophilus influenzae[ICD10: J20.1] Diagnosis: Cough[ICD10: R05] Yarely Vega MD, [facility] CPT-4: 25218 12/04/2017 ([id number]) 19614 EST. PATIENT, LEVEL IV Diagnosis: Essential (primary) hypertension[ICD10: I10] Diagnosis: Cough[ICD10: R05] Diagnosis: Chronic atrial fibrillation[ICD10: I48.2] Yarely Vega MD, [facility] CPT-4: 13206 11/20/2017 ([id number]) 37608 EST. PATIENT, LEVEL III Diagnosis: Cough[ICD10: R05] Diagnosis: Acute upper respiratory infection, unspecified[ICD10: J06.9] Janet Vega MD, [facility] CPT-4: 39960 09/15/2017 95300 EST. PATIENT, LEVEL III Diagnosis: Laceration without foreign body of right forearm, initial encounter[ICD10: S51.811A] Diagnosis: Other vitamin B12 deficiency anemias[ICD10: D51.8] Brianna Vega MD, [facility] CPT-4: 64840 09/07/2017 ([id number]) 45800 EST. PATIENT, LEVEL IV Diagnosis: Chronic atrial fibrillation[ICD10: I48.2] Diagnosis: Other allergic rhinitis[ICD10: J30.89] Diagnosis: Encounter for therapeutic drug level monitoring[ICD10: Z51.81] Yarely Vega MD, [facility] CPT-4: 15586 08/30/2017 ([id number]) 94066 EST. PATIENT, LEVEL IV Diagnosis: Atrophy of thyroid (acquired)[ICD10: E03.4] Diagnosis: Cough[ICD10: R05] Diagnosis: Laceration without foreign body of left forearm, initial encounter[ICD10: S51.812A] Diagnosis: Candidiasis of skin and nail[ICD10: B37.2] Diagnosis: Other vitamin B12 deficiency anemias[ICD10: D51.8] Diagnosis: Slow transit constipation[ICD10: K59.01] Yarely Vega MD, [facility] CPT-4: 73395 07/06/2017 02401 EST. PATIENT, LEVEL III Diagnosis: Other vitamin B12 deficiency anemias[ICD10: D51.8] Diagnosis: Acute laryngopharyngitis[ICD10: J06.0] Diagnosis: Other allergic rhinitis[ICD10: J30.89] Brianna Vega MD, [facility] CPT- 4: 84727 06/20/2017 [id number]) 39674 EST. PATIENT, LEVEL IV Diagnosis: Essential (primary) hypertension[ICD10: I10] Diagnosis: Chronic atrial fibrillation[ICD10: I48.2] Diagnosis: Atrophy of thyroid (acquired)[ICD10: E03.4] Diagnosis: 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 factor deficiency[ICD10: D51.0] Yarely Vega MD, [facility] CPT-4: 23253 05/25/2017 ([id number]) 89812 EST. PATIENT, LEVEL IV Diagnosis: Type 2 diabetes mellitus without complications[ICD10: E11.9] Diagnosis: Atrophy of thyroid (acquired)[ICD10: E03.4] Diagnosis: Chest pain on breathing[ICD10: R07.1] Diagnosis: Chondrocostal junction syndrome [Tietze][ICD10: M94.0] Diagnosis: Other fatigue[ICD10: R53.83] Yarely Vega MD, [facility] CPT-4: 54897 03/23/2017 [id number]) 09206 EST. PATIENT, LEVEL IV Diagnosis: Type 2 diabetes mellitus without complications[ICD10: E11.9] Diagnosis: Essential (primary) hypertension[ICD10: I10] Diagnosis: Headache[ICD10: R51] Diagnosis: Atrophy of thyroid (acquired)[ICD10: E03.4] Diagnosis: Vitamin B12 deficiency anemia, unspecified[ICD10: D51.9] Yarely Vega MD, [facility] CPT-4: 30793 01/23/2017 30127 EST. PATIENT, LEVEL III Diagnosis: Low back pain[ICD10: M54.5] Diagnosis: Pain in thoracic spine[ICD10: M54.6] Brianna Vega MD, [facility] CPT- 4: 06155 11/02/2016 ([id number]) 74984 EST. PATIENT, LEVEL IV Diagnosis: Essential (primary) hypertension[ICD10: I10] Diagnosis: Other vitamin B12 deficiency anemias[ICD10: D51.8] Diagnosis: Generalized abdominal pain[ICD10: R10.84] [facility] CPT-4: 71956 09/29/2016 ([id number]) 04137 EST. PATIENT, LEVEL IV Diagnosis: Essential (primary) hypertension[ICD10: I10] [facility] CPT-4: 34206 07/26/2016 ([id number]) 55114 EST. PATIENT, LEVEL IV Diagnosis: Benign lipomatous neoplasm of skin and subcutaneous tissue of right leg[ICD10: D17.23] Diagnosis: Pain in right ankle and joints of right foot[ICD10: M25.571] Diagnosis: Encounter for immunization[ICD10: Z23] Diagnosis: Vitamin B12 deficiency anemia, unspecified[ICD10: D51.9] Yarely Vega MD, [facility] CPT-4: 15975 05/25/2016 84132 EST. PATIENT, LEVEL III Diagnosis: Other chest pain[ICD10: R07.89] Diagnosis: Other vitamin B12 deficiency anemias[ICD10: D51.8] [facility] CPT-4: 77351 02/25/2016 ([id number]) 86690 EST. 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 PATIENT, LEVEL III Diagnosis: Other vitamin B12 deficiency anemias[ICD10: D51.8] Diagnosis: Acute nasopharyngitis [common cold][ICD10: J00] Diagnosis: Other allergic rhinitis[ICD10: J30.89] [facility] CPT- 4: 47204 11/11/2015 ([id number]) 32680 EST. PATIENT, LEVEL IV Diagnosis: Essential tremor[ICD10: G25.0] Diagnosis: Chronic fatigue, unspecified[ICD10: R53.82] Diagnosis: Other hypersomnia[ICD10: G47.19] Diagnosis: Essential (primary) hypertension[ICD10: I10] Yarely Vega MD, [facility] CPT-4: 09779 10/12/2015 ([id number]) 85840 EST. PATIENT, LEVEL IV Diagnosis: Essential (primary) hypertension[ICD10: I10] Diagnosis: Chronic atrial fibrillation[ICD10: I48.2] Diagnosis: Abnormal levels of other serum enzymes[ICD10: R74.8] Diagnosis: Type 2 diabetes mellitus without complications[ICD10: E11.9] Diagnosis: Vitamin B12 deficiency anemia, unspecified[ICD10: D51.9] Yarely Vega MD, [facility] CPT-4: 56585 09/03/2015 ([id number]) 83118 EST. PATIENT, LEVEL III Diagnosis: Nausea[ICD10: R11.0] Diagnosis: Essential tremor[ICD10: G25.0] Diagnosis: Actinic keratosis[ICD10: L57.0] Yarely Vega MD, [facility] CPT-4: 43653 05/19/2015 ([id number]) 25412 EST. PATIENT, LEVEL IV Diagnosis: Vitamin B12 deficiency anemia, unspecified[ICD10: D51.9] Diagnosis: Chronic atrial fibrillation[ICD10: I48.2] Diagnosis: Headache[ICD10: R51] Diagnosis: Chronic fatigue, unspecified[ICD10: R53.82] Diagnosis: Cervicalgia[ICD10: M54.2] Yarely Vega MD, [facility] CPT-4: 53765 05/12/2015 ([id number]) 65064 EST. PATIENT, LEVEL IV Diagnosis: ESSENTIAL HYPERTENSION[ICD9: 401.9] Diagnosis: Afib[ICD9: 427.31] Diagnosis: Anxiety[ICD9: 300.00] Diagnosis: Insomnia[ICD9: 780.52] Yarely Vega MD, [facility] CPT-4: 50590 01/13/2015 ([id number]) OFFICE VISIT, NEW - LEVEL 4 Diagnosis: Hypothyroidism[ICD9: 244.9] Diagnosis: DIABETES TYPE II[ICD9: 250.00] Diagnosis: ESSENTIAL HYPERTENSION[ICD9: 401.9] Diagnosis: Afib[ICD9: 427.31] Diagnosis: Anxiety[ICD9: 300.00] Diagnosis: B12 deficiency[ICD9: 266.2] Janet Vega MD, [facility] CPT-4: 77058 12/16/2014 Plan of Care Planned Activity Notes Codes Status Date Appointment: [phone] [facility] ([facility] min) Moderate 09/11/2018 Appointment: [...] control. 09/05/2018 App[facility]ment: [facility] [address] [facility] (15 min) Moderate 09/05/2018 Patient Education: [...] Completed 06/20/2018 Appointment: [facility] [address] [facility] [place] (30 min) Complex 06/07/2018 Appointment: Injection 06/06/2018 Patient Education: Patient Medication Summary Completed 06/06/2018 Appointment: [facility]are[facility] (15 min) Moderate 05/31/2018 Appointment: Injection [...] restart flonase 05/03/2018 Appointment: Yarely [facility]ega WPtel[facility] [place] (15 min) Moderate 05/03/2018 [...] surgical intervention. 02/26/2018 Appointment: Yarely Vega WPtel: [phone] [facility] [place] (15 min) Moderate 02/26/2018 Patient Education: Patient Medication Summary Completed 02/26/2018 Care Plan: Referral Order SNOMED-CT : [id number] Pending 02/26/2018 Appointment: Injection 02/08/2018 Patient Education: Patient Medication Summary Completed 02/08/2018 Appointment: Injection 01/24/2018 Patient Education: Patient Medication Summary Completed 01/24/2018 Appointment: Injection 01/10/2018 Patient Education: Patient Medication Summary Completed 01/10/2018 Appointment: Injection 12/27/2017 Patient Education: Patient Medication Summary Completed 12/27/2017 Appointment: Yarely Vega WPtel: [phone] [facility] [place] (15 min) Moderate 12/26/2017 Visit Plan: Jvawwp-bkuqjmwak-tnhobwzu protonix-follow up with Dr Navarro as scheduled Cough-recent bronchitis-symptoms improved-call if symptoms do not completely resolve 12/12/2017 Appointment: Janet Fam WPtel: [phone] [phone] [place] (15 min) Moderate 12/12/2017 Patient Education: Patient Medication Summary Completed 12/12/2017 Visit Plan: Bronchitis - acute case of bronchitis identified. Pt has been given antibiotics, breathing treatments as appropriate, and pt has been instructed to call if symptoms are not improved, or if symptoms acutely worsen. Cough - rx for antibiotics as well as cough medication. 12/04/2017 Appointment: [facility] [phone] [facility] (15 min) Moderate 12/04/2017 Patient Education: Patient [...] Fatigue/malaise -Pt was advsied to ask the Potato Picker the following: ask the heart doctor if [...] uncontrolled. 11/20/2017 Appointment: Yarely Vega WPtel: [phone] [facility] (15 min) Moderate 11/20/2017 Patient Education: Patient [...] any worse. 09/15/2017 Appointment: Janet Fam WPtel: [phone] [phone] [place] (15 min) Moderate 09/15/2017 Patient Education: Patient Medication Summary Completed 09/15/2017 Appointment: Yarely Vega WPtel: [address] [place], [place] [id number] [place] (15 min) Moderate 09/11/2017 Visit Plan: Skin tear and Cellulitis - The patient was instructed in appropriate wound care. The patient was instructed to use the antibiotic ointment as per RX. The patient is to call for any change in symptoms, increase in size of the lesion, increase in pain, worsening redness, warmth, discharge. 09/07/2017 Appointment: Brianna Otoole WPtel: [facility] [place] (10 min) Simple 09/07/2017 Patient Education: Patient Medication Summary Completed 09/07/2017 Visit Plan: Lipoma - left ankle - talk to dr. barnes about possible surgery/laser for treatment of lipoma. Fatigue/malaise -Pt was advsied to ask the Potato Picker the following: ask the heart doctor if there is an alternative to the amiodarone - you may be having side effects from the medication causing you to have pruritus (itching) and feeling like you have body aches, muscle aches, joint pain, fatigue, weight loss (decreased appetite), and pneumonia like symptoms. Congestion - claritin 10mg daily. 08/30/2017 Appointment: Yarely Vega WPtel: [facility] [place] (15 min) Moderate 08/30/2017 Patient Education: Patient Medication Summary Completed 08/30/2017 Appointment: Injection 08/24/2017 Appointment: Yarely [facility]ega WPtel: [facility] [place] (15 min) Moderate 08/24/2017 Patient [...] current treatment plan and mucinex 07/06/2017 Appointment: [facility] [phone] [facility] (15 min) Moderate 07/06/2017 Patient Education: [...] allergy spray. 06/20/2017 [phone] [facility] ([facility]) Moderate 06/20/2017 Patient Education: [...] Injection 06/05/2017 Appointment: [facility] [address] [facility] [facility] - Annual Wellness Visit 06/05/2017 Patient Education: [...] control. 05/25/2017 Appointment: [facility] [phone] [facility] (15 min) Moderate 05/25/2017 Patient [...] wall. Fatigue - pt to discuss with Potato Picker about the possibility of amiodarone causing her fatigue/malaise. 03/23/2017 Appointment: [facility] [phone] [facility] (15 min) Moderate 03/23/2017 Patient Education: [...] twice daily. 01/23/2017 Appointment: Yarely Vega WPtel: [facility] (15 min) Moderate 01/23/2017 Patient [...] improve. 11/02/2016 Appointment: [facility] [phone] [facility] [place] (15 min) Moderate 11/02/2016 Patient [...] carafate 09/29/2016 Appointment: Yarely Vega WPtel: [phone] [facility] [place] (15 min) Moderate 09/29/2016 Patient Education: Patient Medication Summary Completed 09/29/2016 Appointment: [facility] [phone] [facility] [place] (15 min) Moderate 09/27/2016 Appointment: [facility] [phone] [facility] [place] (15 min) Moderate 09/20/2016 Appointment: [facility] [phone] [facility] [place] (15 min) Moderate 09/20/2016 Patient Education: Patient Medication Summary Completed 09/06/2016 Appointment: [facility] [phone] [facility] [place] (15 min) Moderate 08/30/2016 [...] concerns. 07/26/2016 Appointment: [facility] [phone] [facility] (15 min) Moderate 07/26/2016 Patient Education: [...] care surrogate. 05/30/2016 Appointment: [facility] [phone] [facility] [facility] - Annual Wellness Visit 05/30/2016 Patient Education: [...] at bedtime 05/25/2016 Appointment: [facility] [phone] [facility] (15 min) Moderate 05/25/2016 Patient Education: Patient Medication Summary Completed 05/25/2016 Patient Education: Obesity Completed 05/25/2016 Care Plan: Referral Order SNOMED-CT : [id number] Pending 05/25/2016 Appointment: Injection 05/10/2016 Patient Education: Patient Medication Summary Completed 05/10/2016 Appointment: Injection 04/26/2016 Patient Education: Patient Medication Summary Completed 04/26/2016 Appointment: Injection 04/11/2016 Patient Education: Patient Medication Summary Completed 04/11/2016 Appointment: Injection 03/31/2016 Patient Education: Patient Medication Summary Completed 03/31/2016 Patient Education: Patient Medication Summary Completed 03/22/2016 Care Plan: SCREENINGMAMMOGRAPHYDIGITAL LOINC : 68982-4 Pending 03/22/2016 Appointment: Injection 03/15/2016 Patient Education: [...] concerns. 02/25/2016 Appointment: [facility] [phone] [facility] [place] (15 min) Moderate 02/25/2016 Patient [...] the patients recent sleep study - recommended [place] home patient eval of pt - nocturnal [...] the patients recent sleep study - recommended [place] home patient eval of pt - nocturnal [...] case with Faiza's daughter who had left [facility]. She is interested in looking at assisted living facilities for her mom as Faiza's family is for assisted living placement sooner rather than later. 10/12/2015 Appointment: Yarely Vega WPtel: [facility] (15 min) Moderate 10/12/2015 Patient [...] Summary Completed 08/17/2015 Appointment: Yarely Vega WPtel: [facility] (15 min) Moderate 08/11/2015 Appointment: [...] 2 05/19/2015 Appointment: [facility] [phone] [facility] (30 min) Complex 05/19/2015 Patient [...] alprazolam. 01/13/2015 Appointment: [facility] [phone] [facility] [place] (15 min) Moderate 01/13/2015 Patient [...] current medications. 12/16/2014 Appointment: [phone] [phone] [place] ([place]) New Patient 12/16/2014 Patient [...] case with Faiza's daughter who had left [facility]. She is interested in [...] D[employer] paperwork for health care surrogate. . Lihten-atukubdhs-aconyzfu protonix-follow up with Dr Navarro as scheduled [...] Fatigue/malaise -Pt was advsied to ask the Potato Picker the following: ask the heart doctor if [...] Fatigue/malaise -Pt was advsied to ask the Potato Picker the following: ask the heart doctor if [...] wall. Fatigue - pt to discuss with Potato Picker about the possibility of amiodarone causing her [...] the patients recent sleep study - recommended [place] home patient eval of pt - nocturnal [...] the patients recent sleep study - recommended [place] home patient eval of pt - nocturnal [...]
--- OUTSIDE RECORDS SUMMARY | 2018-12-05 17:18 | XMS REPORT | CCD ---
Author Author [facility] Organization [facility] Address [address] [place] [address] Phone Care Team Providers Care Ward Assistant Name Role Phone PP Unavailable CCM Unavailable Summary Purpose Interface Exchange Insurance Providers Payer name Policy type / Coverage type Covered green party ID Effective Begin Date Effective End Date WPS Medicare Part B Medicare Part B [id number] Unknown Principal Life Insurance Medicare Part B [id number] Unknown [employer] in [place] Medicare Part B [id number] Unknown Family history Brother Diagnosis Age At Onset Heart Attack Unknown Mother Diagnosis Age At Onset Hypertension Unknown kidney disease Unknown Stroke Unknown Father Diagnosis Age At Onset Arthritis Unknown Social History Social History Element Codes Description Effective Dates Employment Unknown Retired worked at [employer] 11/20/2017 Marital status Unknown Single 12/16/[address]: 6131907 Former smoker 12/16/[address]: 710397853 Never drinks alcohol 12/16/2014 Allergies, Adverse Reactions, Alerts Substance Reaction Codes Entered Date Inactivated Date Status CODEINE RxNorm: 2670 05/25/2016 No Inactive Date Active ciprofloxacin RxNorm: 26800 12/16/2014 No Inactive Date Active MORPHINE SULFATE [...] (vit B-12) 1,000 mcg/mL injection solution RxNorm: 663988 Milliliter(s) Inj 09/11/2018 09/11/2018 Inactive levothyroxine 125 mcg tablet RxNorm: 988967 TAKE 1 TABLET BY MOUTH EVERY DAY 09/10/2018 03/08/2019 Active Generic For:SYNTHROID 125MCG TAB 09/10/2018 12:06:52 PM cyanocobalamin (vit B-12) 1,000 mcg/mL injection solution RxNorm: 534011 Milliliter(s) Inj 08/29/2018 08/29/2018 Inactive alprazolam 0.25 mg tablet RxNorm: 751226 1 Tablet(s) PO BID 08/21/2018 02/16/2019 Active albuterol sulfate 2.5 mg/3 mL (0.083 %) solution for nebulization RxNorm: 220447 3 Milliliter(s) INH Q6 PRN 08/15/2018 No Stop Date Active Aricept 10 mg tablet RxNorm: 586847 1 Tablet(s) PO daily 08/15/2018 08/09/2019 Active liothyronine 5 mcg tablet RxNorm: 068108 Tablet(s) TAKE 1 TABLET BY MOUTH TWICE DAILY 08/15/2018 02/10/2019 Active cyanocobalamin (vit B-12) 1,000 mcg/mL injection solution RxNorm: 699618 Milliliter(s) Inj 08/15/2018 08/15/2018 Inactive Kenalog 40 mg/mL suspension for injection RxNorm: 3802834 Milliliter(s) Inj 08/15/2018 08/15/2018 Inactive doxycycline hyclate 100 mg capsule RxNorm: 3226116 1 Capsule(s) PO BID 08/15/2018 08/24/2018 Inactive cyanocobalamin (vit B-12) 1,000 mcg/mL injection solution RxNorm: 157101 Milliliter(s) Inj 08/01/2018 08/01/2018 Inactive cyanocobalamin (vit B-12) 1,000 mcg/mL injection solution RxNorm: 058692 Milliliter(s) Inj 07/19/2018 07/19/2018 Inactive hydrocodone 5 mg-acetaminophen 325 mg tablet RxNorm: 916126 1-2 Tablet(s) PO Q6 as needed for pain 07/18/2018 08/15/2018 Inactive betamethasone valerate 0.1 % topical ointment RxNorm: 465751 1 TOP BID 07/04/2018 07/03/2018 Inactive applying to skin under nose x 10 days cyanocobalamin (vit B-12) 1,000 mcg/mL injection solution RxNorm: 552148 Milliliter(s) Inj 07/04/2018 07/04/2018 Inactive betamethasone valerate 0.1 % topical ointment RxNorm: 624434 1 TOP BID 07/04/2018 07/13/2018 Inactive applying to skin under nose x 10 days Aricept 10 mg tablet RxNorm: 821797 Tablet(s) 1 Tablet(s) PO daily 06/25/2018 08/14/2018 Inactive Flonase Allergy Relief 50 mcg/actuation nasal spray,suspension RxNorm: 2815852 [place] 1 [place] NASAL BID 06/20/2018 10/17/2018 Active cyanocobalamin (vit B-12) 1,000 mcg/mL injection solution RxNorm: 681172 Milliliter(s) Inj 06/20/2018 06/20/2018 Inactive hydrocodone 5 mg-acetaminophen 325 mg tablet RxNorm: 970820 1-2 Tablet(s) PO Q6 as needed for pain 06/20/2018 07/17/2018 Inactive cyanocobalamin (vit B-12) 1,000 mcg/mL injection solution RxNorm: 978161 Milliliter(s) Inj 06/06/2018 06/06/2018 Inactive alprazolam 0.25 mg tablet RxNorm: 759623 1 Tablet(s) PO BID 05/25/2018 08/21/2018 Inactive hydrocodone 5 mg-acetaminophen 325 mg tablet RxNorm: 429686 1-2 Tablet(s) PO Q6 as needed for pain 05/24/2018 06/19/2018 Inactive cyanocobalamin (vit B-12) 1,000 mcg/mL injection solution RxNorm: 747362 Milliliter(s) Inj 05/24/2018 05/24/2018 Inactive cyanocobalamin (vit B-12) 1,000 mcg/mL injection solution RxNorm: 820429 Milliliter(s) Inj 05/09/2018 05/09/2018 Inactive Claritin 10 mg tablet RxNorm: 621995 TAKE 1 TABLET BY MOUTH ONCE DAILY 05/08/2018 05/02/2019 Active Generic For:CLARITIN 10MG 05/07/2018 9:13:47 AM cyanocobalamin (vit B-12) 1,000 mcg/mL injection solution RxNorm: 166181 INJECT ONE 1 ML EVERY TWO WEEKS 05/03/2018 04/03/2019 Active 05/03/2018 9:13:42 AM Mobic 15 mg tablet RxNorm: 441155 Tablet(s) 1 Tablet(s) PO daily 04/26/2018 04/20/2019 Active buspirone 15 mg tablet RxNorm: 157244 Tablet(s) TAKE 1 TABLET BY MOUTH TWICE DAILY 04/26/2018 04/20/2019 Active Generic For:BUSPAR 15MG 05/31/2017 9:19:20 AM Norvasc 5 mg tablet RxNorm: 514838 Tablet(s) 1 Tablet(s) PO daily 04/26/2018 04/20/2019 Active cyanocobalamin (vit B-12) 1,000 mcg/mL injection solution RxNorm: 790679 Milliliter(s) Inj 04/26/2018 04/26/2018 Inactive hydrocodone 5 mg-acetaminophen 325 mg tablet RxNorm: 971693 1-2 Tablet(s) PO Q6 as needed for pain 04/25/2018 05/23/2018 Inactive cyanocobalamin (vit B-12) 1,000 mcg/mL injection solution RxNorm: 978046 Milliliter(s) Inj 04/12/2018 04/12/2018 Inactive Topamax 25 mg tablet RxNorm: 490538 1 Tablet(s) PO BID 04/09/2018 05/02/2018 Inactive Generic For:TOPAMAX 25MG 12/06/2016 9:15:13 AM Zoloft 50 mg tablet RxNorm: 403834 TAKE 1 TABLET BY MOUTH ONCE DAILY 04/04/2018 12/29/2018 Active Generic For:ZOLOFT 50MG 04/04/2018 9:13:25 AM cyanocobalamin (vit B-12) 1,000 mcg/mL injection solution RxNorm: 357477 Milliliter(s) Inj 03/30/2018 03/30/2018 Inactive levothyroxine 125 mcg tablet RxNorm: 444087 TAKE 1 TABLET BY MOUTH EVERY DAY 03/26/2018 09/09/2018 Inactive Generic For:SYNTHROID 125MCG TAB 03/26/2018 9:15:59 AM liothyronine 5 mcg tablet RxNorm: 205779 TAKE 1 TABLET BY MOUTH TWICE DAILY 03/26/2018 08/14/2018 Inactive Generic For:CYTOMEL 5MCG 03/26/2018 9:15:54 AM hydrocodone 5 mg-acetaminophen 325 mg tablet RxNorm: 005285 1-2 Tablet(s) PO Q6 as needed for pain 03/19/2018 04/17/2018 Inactive cyanocobalamin (vit B-12) 1,000 mcg/mL injection solution RxNorm: 396088 Milliliter(s) Inj 03/16/2018 03/16/2018 Inactive Flonase Allergy Relief 50 mcg/actuation nasal spray,suspension RxNorm: 9035964 1 [place] NASAL BID 03/05/2018 06/19/2018 Inactive cyanocobalamin (vit B-12) 1,000 mcg/mL injection solution RxNorm: 703787 Milliliter(s) Inj 03/02/2018 03/02/2018 Inactive alprazolam 0.25 mg tablet RxNorm: 779875 1 Tablet(s) PO BID 02/28/2018 05/27/2018 Inactive cyanocobalamin (vit B-12) 1,000 mcg/mL injection solution RxNorm: 896719 Milliliter(s) Inj 02/08/2018 02/08/2018 Inactive cyanocobalamin (vit B-12) 1,000 mcg/mL injection solution RxNorm: 861735 Milliliter(s) Inj 01/24/2018 01/24/2018 Inactive albuterol sulfate 2.5 mg/3 mL (0.083 %) solution for nebulization RxNorm: 339503 3 Milliliter(s) INH Q6 PRN 01/24/2018 05/02/2018 Inactive Claritin 10 mg tablet RxNorm: 858832 1 Tablet(s) PO daily 01/15/2018 05/07/2018 Inactive cyanocobalamin (vit B-12) 1,000 mcg/mL injection solution RxNorm: 742433 Milliliter(s) Inj 01/10/2018 01/10/2018 Inactive hydrocodone 5 mg-acetaminophen 325 mg tablet RxNorm: 612806 1-2 Tablet(s) PO Q6 as needed for pain 01/09/2018 02/07/2018 Inactive cyanocobalamin (vit B-12) 1,000 mcg/mL injection solution RxNorm: 260880 Milliliter(s) Inj 12/27/2017 12/27/2017 Inactive cyanocobalamin (vit B-12) 1,000 mcg/mL injection solution RxNorm: 209538 1 Milliliter(s) Inj 12/12/2017 12/12/2017 Inactive Zofran ODT 4 mg disintegrating tablet RxNorm: 626781 1 Tablet(s) PO TID as needed 12/08/2017 12/09/2017 Inactive hydrocodone 2.5 mg-guaifenesin 200 mg/5 mL oral solution RxNorm: 254961 5 Milliliter(s) PO 12/04/2017 05/06/2018 Inactive doxycycline hyclate 100 mg capsule RxNorm: 7499155 1 Capsule(s) PO BID 12/04/2017 12/13/2017 Inactive cyanocobalamin (vit B-12) 1,000 mcg/mL injection solution RxNorm: 862367 Milliliter(s) Inj 12/01/2017 12/01/2017 Inactive Flonase Allergy Relief 50 mcg/actuation nasal spray,suspension RxNorm: 9417222 1 [place] NASAL BID 11/20/2017 2018 Inactive cyanocobalamin (vit B-12) 1,000 mcg/mL injection solution RxNorm: 254048 1 Milliliter(s) Inj 11/17/2017 11/17/2017 Inactive hydrocodone 5 mg-acetaminophen 325 mg tablet RxNorm: 858706 1-2 Tablet(s) PO Q6 as needed for pain 11/16/2017 12/15/2017 Inactive cyanocobalamin (vit B-12) 1,000 mcg/mL injection solution RxNorm: 928443 1 Milliliter(s) Inj 11/02/2017 11/02/2017 Inactive hydrocodone 5 mg-acetaminophen 325 mg tablet RxNorm: 320406 1-2 Tablet(s) PO Q6 as needed for pain 10/25/2017 11/15/2017 Inactive Claritin 10 mg tablet RxNorm: 718507 1 Tablet(s) PO daily 10/25/2017 11/19/2017 Inactive albuterol sulfate 2.5 mg/3 mL (0.083 %) solution for nebulization RxNorm: 695781 3 Milliliter(s) INH Q6 PRN 10/25/2017 01/23/2018 Inactive Claritin 10 mg tablet RxNorm: 492911 1 Tablet(s) PO daily 10/25/2017 10/24/2017 Inactive cyanocobalamin (vit B-12) 1,000 mcg/mL injection solution RxNorm: 797818 1 Milliliter(s) Inj 10/20/2017 10/20/2017 Inactive Zoloft 50 mg tablet RxNorm: 676389 TAKE 1 TABLET BY MOUTH ONCE DAILY 10/13/2017 04/03/2018 Inactive Generic For:ZOLOFT 50MG 10/13/2017 8:59:44 AM cyanocobalamin (vit B-12) 1,000 mcg/mL injection solution RxNorm: 763700 Milliliter(s) Inj 10/06/2017 10/06/2017 Inactive liothyronine 5 mcg tablet RxNorm: 201087 TAKE 1 TABLET BY MOUTH TWICE DAILY 10/03/2017 03/25/2018 Inactive Generic For:CYTOMEL 5MCG 10/03/2017 9:13:38 AM cyanocobalamin (vit B-12) 1,000 mcg/mL injection solution RxNorm: 538274 Milliliter(s) Inj 09/21/2017 09/21/2017 Inactive albuterol sulfate 2.5 mg/3 mL (0.083 %) solution for nebulization RxNorm: 752753 3 Milliliter(s) INH Q6 PRN 09/21/2017 10/24/2017 Inactive hydrocodone 5 mg-acetaminophen 325 mg tablet RxNorm: 915782 1-2 Tablet(s) PO Q6 as needed for pain 09/21/2017 10/20/2017 Inactive Kenalog 40 mg/mL suspension for injection RxNorm: 8307782 Milliliter(s) Inj 09/15/2017 09/15/2017 Inactive Keflex 500 mg capsule RxNorm: 913983 1 Capsule(s) PO TID 09/07/2017 09/16/2017 Inactive Please deliver to patient cyanocobalamin (vit B-12) 1,000 mcg/mL injection solution RxNorm: 447874 Milliliter(s) Inj 09/07/2017 09/07/2017 Inactive alprazolam 0.25 mg tablet RxNorm: 538015 1 Tablet(s) PO BID 09/06/2017 02/27/2018 Inactive Aricept 10 mg tablet RxNorm: 208369 1 Tablet(s) PO daily 09/06/2017 06/24/2018 Inactive hydrocodone 5 mg-acetaminophen 325 mg tablet RxNorm: 545789 1-2 Tablet(s) PO Q6 as needed for pain 08/24/2017 09/20/2017 Inactive cyanocobalamin (vit B-12) 1,000 mcg/mL injection solution RxNorm: 890341 Milliliter(s) Inj 08/24/2017 08/24/2017 Inactive Norvasc 5 mg tablet RxNorm: 222577 1 Tablet(s) PO daily 08/18/2017 04/25/2018 Inactive nystatin 100,000 unit/gram topical powder RxNorm: 476985 1 Gram(s) TOP QID 08/17/2017 08/26/2017 Inactive hydrocodone 5 mg-acetaminophen 325 mg tablet RxNorm: 692728 1-2 Tablet(s) PO Q6 as needed for pain 07/25/2017 08/23/2017 Inactive Tamiflu 75 mg capsule RxNorm: 878431 1 Capsule(s) PO BID 07/24/2017 12/11/2017 Inactive nystatin 100,000 unit/gram topical powder RxNorm: 705733 1 Gram(s) TOP QID 07/14/2017 07/22/2017 Inactive levothyroxine 125 mcg tablet RxNorm: 112169 Tablet(s) 1 Tablet(s) PO daily 07/10/2017 01/05/2018 Inactive nystatin 100,000 unit/gram topical powder RxNorm: 677069 1 Gram(s) TOP QID 07/06/2017 07/13/2017 Inactive cyanocobalamin (vit B-12) 1,000 mcg/mL injection solution RxNorm: 717590 Milliliter(s) Inj 07/06/2017 07/06/2017 Inactive Kenalog 40 mg/mL suspension for injection RxNorm: 4398689 1 Milliliter(s) Inj 06/20/2017 06/20/2017 Inactive doxycycline hyclate 100 mg capsule RxNorm: 2941769 1 Capsule(s) PO BID 06/20/2017 06/26/2017 Inactive cyanocobalamin (vit B-12) 1,000 mcg/mL injection solution RxNorm: 491041 Milliliter(s) Inj 06/20/2017 06/20/2017 Inactive Keflex 500 mg capsule RxNorm: 587660 1 Capsule(s) PO TID 06/14/2017 06/23/2017 Inactive Please deliver to patient Mobic 15 mg tablet RxNorm: 937571 1 Tablet(s) PO daily 06/14/2017 04/25/2018 Inactive cyanocobalamin (vit B-12) 1,000 mcg/mL injection solution RxNorm: 843877 Milliliter(s) Inj 06/05/2017 06/05/2017 Inactive buspirone 15 mg tablet RxNorm: 080336 TAKE 1 TABLET BY MOUTH TWICE DAILY 05/31/2017 04/25/2018 Inactive Generic For:BUSPAR 15MG 05/31/2017 9:19:20 AM cyanocobalamin (vit B-12) 1,000 mcg/mL injection solution RxNorm: 915485 Milliliter(s) Inj 05/25/2017 05/25/2017 Inactive hydrocodone 5 mg-acetaminophen 325 mg tablet RxNorm: 228457 1-2 Tablet(s) PO Q6 as needed for pain 05/25/2017 06/23/2017 Inactive amiodarone 200 mg tablet RxNorm: 884001 1/2 Tablet(s) PO daily 05/22/2017 No Stop Date Active cardiology decreased to 100mg daily cyanocobalamin (vit B-12) 1,000 mcg/mL injection solution RxNorm: 429828 Milliliter(s) Inj 05/16/2017 05/16/2017 Inactive Zofran ODT 4 mg disintegrating tablet RxNorm: 122392 1 Tablet(s) PO TID as needed 05/03/2017 05/04/2017 Inactive hydrocodone 5 mg-acetaminophen 325 mg tablet RxNorm: 829325 1-2 Tablet(s) PO Q6 as needed for pain 05/01/2017 05/05/2017 Inactive cyanocobalamin (vit B-12) 1,000 mcg/mL injection solution RxNorm: 774984 1 Milliliter(s) Inj 05/01/2017 05/01/2017 Inactive cyanocobalamin (vit B-12) 1,000 mcg/mL injection solution RxNorm: 297828 INJECT ONE 1 ML EVERY TWO WEEKS 04/26/2017 12/04/2018 Active 04/26/2017 9:08:52 AM Zoloft 50 mg tablet RxNorm: 751422 Tablet(s) TAKE 1 TABLET BY MOUTH DAILY 04/25/2017 10/12/2017 Inactive Generic For:ZOLOFT 50MG cyanocobalamin (vit B-12) 1,000 mcg/mL injection solution RxNorm: 856335 Milliliter(s) Inj 04/18/2017 04/18/2017 Inactive liothyronine 5 mcg tablet RxNorm: 079461 1 Tablet(s) PO BID 04/13/2017 10/02/2017 Inactive cyanocobalamin (vit B-12) 1,000 mcg/mL injection solution RxNorm: 437024 Milliliter(s) Inj 04/06/2017 04/06/2017 Inactive hydrocodone 5 mg-acetaminophen 325 mg tablet RxNorm: 905206 1-2 Tablet(s) PO Q6 as needed for pain 04/06/2017 04/10/2017 Inactive cyanocobalamin (vit B-12) 1,000 mcg/mL injection solution RxNorm: 877010 Milliliter(s) Inj 03/22/2017 03/22/2017 Inactive alprazolam 0.25 mg tablet RxNorm: 598941 1 Tablet(s) PO BID 03/17/2017 12/11/2017 Inactive alprazolam 0.25 mg tablet RxNorm: 517033 1 Tablet(s) PO BID 03/16/2017 09/05/2017 Inactive hydrocodone 5 mg-acetaminophen 325 mg tablet RxNorm: 701332 1-2 Tablet(s) PO Q6 as needed for pain 03/09/2017 03/13/2017 Inactive cyanocobalamin (vit B-12) 1,000 mcg/mL injection solution RxNorm: 712374 Milliliter(s) Inj 03/09/2017 03/09/2017 Inactive cyanocobalamin (vit B-12) 1,000 mcg/mL injection solution RxNorm: 314478 Milliliter(s) Inj 02/23/2017 02/23/2017 Inactive cyanocobalamin (vit B-12) 1,000 mcg/mL injection solution RxNorm: 002516 Milliliter(s) Inj 02/09/2017 02/09/2017 Inactive hydrocodone 5 mg-acetaminophen 325 mg tablet RxNorm: 519468 1-2 Tablet(s) PO Q6 as needed for pain 02/08/2017 02/12/2017 Inactive Topamax 25 mg tablet RxNorm: 352829 1 Tablet(s) PO BID 01/23/2017 05/22/2017 Inactive Generic For:TOPAMAX 25MG 12/06/2016 9:15:13 AM cyanocobalamin (vit B-12) 1,000 mcg/mL injection solution RxNorm: 413061 Milliliter(s) Inj 01/23/2017 01/23/2017 Inactive cyanocobalamin (vit B-12) 1,000 mcg/mL injection solution RxNorm: 774057 Milliliter(s) Inj 01/10/2017 01/10/2017 Inactive hydrocodone 5 mg-acetaminophen 325 mg tablet RxNorm: 444529 1-2 Tablet(s) PO Q6 as needed for pain 01/09/2017 01/13/2017 Inactive cyanocobalamin (vit B-12) 1,000 mcg/mL injection solution RxNorm: 269055 1 Milliliter(s) Inj 12/28/2016 12/28/2016 Inactive cyanocobalamin (vit B-12) 1,000 mcg/mL injection solution RxNorm: 616058 Milliliter(s) Inj 12/14/2016 12/14/2016 Inactive buspirone 15 mg tablet RxNorm: 001564 1 Tablet(s) PO BID 12/12/2016 05/30/2017 Inactive hydrocodone 5 mg-acetaminophen 325 mg tablet RxNorm: 731138 1-2 Tablet(s) PO Q6 as needed for pain 12/08/2016 12/12/2016 Inactive Topamax 25 mg tablet RxNorm: 659444 TAKE 1 TABLET BY MOUTH EVERY DAY AT BEDTIME 12/06/2016 01/22/2017 Inactive Generic For:TOPAMAX 25MG 12/06/2016 9:15:13 AM Lac-Hydrin Five 5 % lotion RxNorm: 338345 1 Gram(s) TOP daily 12/02/2016 05/02/2018 Inactive cyanocobalamin (vit B-12) 1,000 mcg/mL injection solution RxNorm: 286131 Milliliter(s) Inj 11/24/2016 11/24/2016 Inactive Ceftin 500 mg tablet RxNorm: 629235 1 Tablet(s) PO BID 11/11/2016 06/13/2017 Inactive Cipro 500 mg tablet RxNorm: 042352 1 Tablet(s) PO BID 11/11/2016 11/10/2016 Inactive Cipro 500 mg tablet RxNorm: 410596 1 Tablet(s) PO BID 11/11/2016 11/11/2016 Inactive cyanocobalamin (vit B-12) 1,000 mcg/mL injection solution RxNorm: 665084 1 Milliliter(s) Inj 11/07/2016 11/07/2016 Inactive hydrocodone 5 mg-acetaminophen 325 mg tablet RxNorm: 938335 1-2 Tablet(s) PO Q6 as needed for pain 11/02/2016 11/06/2016 Inactive cyanocobalamin (vit B-12) 1,000 mcg/mL injection solution RxNorm: 873067 Milliliter(s) Inj 10/24/2016 10/24/2016 Inactive levothyroxine 125 mcg tablet RxNorm: 451695 Tablet(s) 1 Tablet(s) PO daily 10/24/2016 04/21/2017 Inactive liothyronine 5 mcg tablet RxNorm: 943615 1 Tablet(s) PO BID 10/24/2016 04/12/2017 Inactive hydrocodone 5 mg-acetaminophen 325 mg tablet RxNorm: 746798 1-2 Tablet(s) PO Q6 as needed for pain 10/17/2016 10/21/2016 Inactive Keflex 500 mg capsule RxNorm: 925187 1 Capsule(s) PO TID 10/07/2016 10/06/2016 Inactive Keflex 500 mg capsule RxNorm: 702914 1 Capsule(s) PO TID 10/07/2016 10/16/2016 Inactive Please deliver to patient cyanocobalamin (vit B-12) 1,000 mcg/mL injection solution RxNorm: 563791 1 Milliliter(s) Inj 09/29/2016 09/29/2016 Inactive alprazolam 0.25 mg tablet RxNorm: 605070 1 Tablet(s) PO BID 09/20/2016 03/16/2017 Inactive Cozaar 100 mg tablet RxNorm: 278695 1 Tablet(s) PO daily 09/14/2016 No Stop Date Active metoprolol tartrate 50 mg tablet RxNorm: 059842 1/2 Tablet(s) PO BID 09/14/2016 12/12/2016 Inactive Zoloft 50 mg tablet RxNorm: 260154 Tablet(s) TAKE 1 TABLET BY MOUTH DAILY 09/14/2016 03/12/2017 Inactive Generic For:ZOLOFT 50MG liothyronine 5 mcg tablet RxNorm: 122351 1 Tablet(s) PO BID 09/14/2016 10/23/2016 Inactive Calmoseptine 0.44 %-20.6 % topical ointment RxNorm: 039333 1 Application TOP BID and as needed to sore on buttocks 09/07/2016 No Stop Date Active cyanocobalamin (vit B-12) 1,000 mcg/mL injection solution RxNorm: 392193 Milliliter(s) Inj 08/29/2016 08/29/2016 Inactive hydrocodone 5 mg-acetaminophen 325 mg tablet RxNorm: 550967 1-2 Tablet(s) PO Q6 as needed for pain 08/29/2016 10/16/2016 Inactive levothyroxine 125 mcg tablet RxNorm: 658393 1 Tablet(s) PO daily 08/25/2016 10/23/2016 Inactive Topamax 25 mg tablet RxNorm: 235153 TAKE 1 TABLET BY MOUTH EVERY DAY AT BEDTIME 08/17/2016 12/05/2016 Inactive Generic For:TOPAMAX 25MG 08/17/2016 2:14:37 PM hydrocodone 5 mg-acetaminophen 325 mg tablet RxNorm: 337715 1-2 Tablet(s) PO Q6 as needed for pain 08/11/2016 08/28/2016 Inactive hydrocodone 5 mg-acetaminophen 325 mg tablet RxNorm: 066630 1 -2 Tablet(s) PO Q6 as needed for pain 08/11/2016 08/18/2016 Inactive hydrocodone 5 mg-acetaminophen 325 mg tablet RxNorm: 859334 1 Tablet(s) PO Q6 as needed for pain 08/05/2016 08/10/2016 Inactive cyanocobalamin (vit B-12) 1,000 mcg/mL injection solution RxNorm: 997530 Milliliter(s) Inj 08/04/2016 08/04/2016 Inactive Norvasc 10 mg tablet RxNorm: 814625 1 Tablet(s) PO daily 07/26/2016 07/20/2017 Inactive alprazolam 0.25 mg tablet RxNorm: 891667 1 Tablet(s) PO QHS 07/21/2016 09/19/2016 Inactive Norvasc 5 mg tablet RxNorm: 981835 1 Tablet(s) PO daily 07/21/2016 07/25/2016 Inactive levothyroxine 125 mcg tablet RxNorm: 927483 1 Tablet(s) PO daily 07/21/2016 12/11/2017 Inactive cyanocobalamin (vit B-12) 1,000 mcg/mL injection solution RxNorm: 922461 Milliliter(s) Inj 07/21/2016 07/21/2016 Inactive Zoloft 50 mg tablet RxNorm: 227587 Tablet(s) TAKE 1 TABLET BY MOUTH DAILY 07/21/2016 09/13/2016 Inactive Generic For:ZOLOFT 50MG cyanocobalamin (vit B-12) 1,000 mcg/mL injection solution RxNorm: 037441 1 Milliliter(s) Inj 07/05/2016 07/05/2016 Inactive cyanocobalamin (vit B-12) 1,000 mcg/mL injection solution RxNorm: 922409 1 Milliliter(s) Inj 06/22/2016 06/22/2016 Inactive cyanocobalamin (vit B-12) 1,000 mcg/mL injection solution RxNorm: 524403 Milliliter(s) Inj 06/09/2016 06/09/2016 Inactive Aricept 10 mg tablet RxNorm: 508664 1 Tablet(s) PO daily 05/27/2016 05/21/2017 Inactive Mobic 15 mg tablet RxNorm: 103194 1 Tablet(s) PO daily 05/27/2016 05/21/2017 Inactive levothyroxine 125 mcg tablet RxNorm: 581080 1 Tablet(s) PO daily 05/25/2016 07/20/2016 Inactive cyanocobalamin (vit B-12) 1,000 mcg/mL injection solution RxNorm: 876483 1 Milliliter(s) Inj 05/25/2016 05/25/2016 Inactive doxycycline hyclate 100 mg capsule RxNorm: 7427080 1 Capsule(s) PO BID 05/16/2016 05/15/2016 Inactive doxycycline hyclate 100 mg capsule RxNorm: 2070068 1 Capsule(s) PO BID 05/16/2016 05/22/2016 Inactive cyanocobalamin (vit B-12) 1,000 mcg/mL injection solution RxNorm: 789898 Milliliter(s) Inj 05/10/2016 05/10/2016 Inactive cyanocobalamin (vit B-12) 1,000 mcg/mL injection solution RxNorm: 090652 Milliliter(s) Inj 04/26/2016 04/26/2016 Inactive Topamax 25 mg tablet RxNorm: 912149 1 Tablet(s) PO QPM 04/22/2016 08/16/2016 Inactive cyanocobalamin (vit B-12) 1,000 mcg/mL injection solution RxNorm: 350886 Milliliter(s) 1 Milliliter(s) Inj [id number] 04/11/2016 12/31/2017 Inactive liothyronine 5 mcg tablet RxNorm: 312135 1 Tablet(s) PO BID 04/11/2016 09/13/2016 Inactive cyanocobalamin (vit B-12) 1,000 mcg/mL injection solution RxNorm: 869892 Milliliter(s) Inj 04/11/2016 04/11/2016 Inactive cyanocobalamin (vit B-12) 1,000 mcg/mL injection solution RxNorm: 743909 Milliliter(s) Inj 03/31/2016 03/31/2016 Inactive cyanocobalamin (vit B-12) 1,000 mcg/mL injection solution RxNorm: 056858 1 Milliliter(s) Inj 03/15/2016 03/15/2016 Inactive levothyroxine 125 mcg tablet RxNorm: 358120 1 Tablet(s) PO daily 2016 03/03/2016 Inactive levothyroxine 125 mcg tablet RxNorm: 962001 1 Tablet(s) PO daily 2016 05/24/2016 Inactive cyanocobalamin (vit B-12) 1,000 mcg/mL injection solution RxNorm: 364474 Milliliter(s) Inj 02/25/2016 02/25/2016 Inactive cyanocobalamin (vit B-12) 1,000 mcg/mL injection solution RxNorm: 843069 1 Milliliter(s) Inj 02/02/2016 02/02/2016 Inactive sucralfate 1 gram tablet RxNorm: 517528 1 Tablet(s) PO QHS 01/25/2016 No Stop Date Active amiodarone 200 mg tablet RxNorm: 138027 1/2 Tablet(s) PO BID 01/25/2016 05/21/2017 Inactive cyanocobalamin (vit B-12) 1,000 mcg/mL injection solution RxNorm: 044483 Milliliter(s) Inj 01/18/2016 01/18/2016 Inactive cyanocobalamin (vit B-12) 1,000 mcg/mL injection solution RxNorm: 861080 Milliliter(s) Inj 12/29/2015 12/29/2015 Inactive Topamax 25 mg tablet RxNorm: 098420 1 Tablet(s) PO QPM 12/08/2015 04/05/2016 Inactive cyanocobalamin (vit B-12) 1,000 mcg/mL injection solution RxNorm: 535593 Milliliter(s) Inj 12/08/2015 12/08/2015 Inactive Bactrim DS 800 mg-160 mg tablet RxNorm: 132180 1 Tablet(s) PO BID 11/23/2015 11/22/2015 Inactive cyanocobalamin (vit B-12) 1,000 mcg/mL injection solution RxNorm: 306954 Milliliter(s) Inj 11/23/2015 11/23/2015 Inactive Bactrim DS 800 mg-160 mg tablet RxNorm: 468508 1 Tablet(s) PO BID 11/23/2015 11/29/2015 Inactive cyanocobalamin (vit B-12) 1,000 mcg/mL injection solution RxNorm: 195445 Milliliter(s) Inj 11/11/2015 11/11/2015 Inactive amoxicillin 500 mg capsule RxNorm: 531283 1 Capsule(s) PO TID 11/10/2015 11/19/2015 Inactive Zithromax Z-Henrique 250 mg tablet RxNorm: 442807 1 Tablet(s) PO UD 11/10/2015 01/24/2016 Inactive zpack x 1 amoxicillin 500 mg capsule RxNorm: 474982 1 Capsule(s) PO TID 11/10/2015 11/09/2015 Inactive cyanocobalamin (vit B-12) 1,000 mcg/mL injection solution RxNorm: 867267 1 Milliliter(s) Inj 10/29/2015 10/29/2015 Inactive Mantador 3 capsule RxNorm: 1 Capsule(s) PO QAM , 2 Capsules at noon, 1 Capsule QHS 10/13/2015 No Stop Date Active potassium chloride ER 20 mEq tablet,extended release RxNorm: 838009 2 Tablet(s) PO daily at noon 10/13/2015 No Stop Date Active alprazolam 0.25 mg tablet RxNorm: 595800 1 Tablet(s) PO QHS 10/13/2015 07/20/2016 Inactive amiodarone 200 mg tablet RxNorm: 754546 1 Tablet(s) PO BID 10/13/2015 01/24/2016 Inactive cyanocobalamin (vit B-12) 1,000 mcg/mL injection solution RxNorm: 953135 1 Milliliter(s) Inj 10/12/2015 10/12/2015 Inactive Zofran 4 mg tablet RxNorm: 542709 1 Tablet(s) PO daily as needed 10/07/2015 05/24/2016 Inactive Zoloft 50 mg tablet RxNorm: 581121 TAKE 1 TABLET BY MOUTH DAILY 10/05/2015 05/01/2016 Inactive Generic For:ZOLOFT 50MG cyanocobalamin (vit B-12) 1,000 mcg/mL injection solution RxNorm: 356156 1 Milliliter(s) Inj 09/29/2015 09/29/2015 Inactive cyanocobalamin (vit B-12) 1,000 mcg/mL injection solution RxNorm: 656556 1 Milliliter(s) Inj 09/17/2015 09/17/2015 Inactive Norvasc 5 mg tablet RxNorm: 572747 1 Tablet(s) PO daily 09/17/2015 07/20/2016 Inactive liothyronine 5 mcg tablet RxNorm: 104675 1 Tablet(s) PO BID 09/17/2015 03/14/2016 Inactive Zoloft 50 mg tablet RxNorm: 073466 1 Tablet(s) PO daily 09/17/2015 10/04/2015 Inactive buspirone 15 mg tablet RxNorm: 190913 1 Tablet(s) PO BID 09/17/2015 09/10/2016 Inactive buspirone 15 mg tablet RxNorm: 983351 1 Tablet(s) PO BID 09/14/2015 09/16/2015 Inactive Topamax 25 mg tablet RxNorm: 715511 1 Tablet(s) PO QPM 09/03/2015 12/07/2015 Inactive cyanocobalamin (vit B-12) 1,000 mcg/mL injection solution RxNorm: 686090 1 Milliliter(s) Inj 09/03/2015 09/03/2015 Inactive cyanocobalamin (vit B-12) 1,000 mcg/mL injection solution RxNorm: 862241 Milliliter(s) Inj 08/17/2015 08/17/2015 Inactive cyanocobalamin (vit B-12) 1,000 mcg/mL injection solution RxNorm: 002662 Milliliter(s) Inj 08/06/2015 08/06/2015 Inactive levothyroxine 150 mcg tablet RxNorm: 060606 1 Tablet(s) PO daily 07/22/2015 03/03/2016 Inactive Aricept 10 mg tablet RxNorm: 021551 1 Tablet(s) PO daily 07/22/2015 05/26/2016 Inactive Mobic 15 mg tablet RxNorm: 141059 1 Tablet(s) PO daily 07/22/2015 05/26/2016 Inactive cyanocobalamin (vit B-12) 1,000 mcg/mL injection solution RxNorm: 865102 Milliliter(s) Inj 07/22/2015 07/22/2015 Inactive liothyronine 5 mcg tablet RxNorm: 931683 1 Tablet(s) PO BID 07/22/2015 09/16/2015 Inactive cyanocobalamin (vit B-12) 1,000 mcg/mL injection solution RxNorm: 515052 Milliliter(s) Inj 07/08/2015 07/08/2015 Inactive cyanocobalamin (vit B-12) 1,000 mcg/mL injection solution RxNorm: 401826 Milliliter(s) Inj 06/23/2015 06/23/2015 Inactive cyanocobalamin (vit B-12) 1,000 mcg/mL injection solution RxNorm: 448137 1 Milliliter(s) Inj 06/08/2015 06/08/2015 Inactive cyanocobalamin (vit B-12) 1,000 mcg/mL injection solution RxNorm: 596099 Milliliter(s) Inj 05/27/2015 05/27/2015 Inactive Aricept 10 mg tablet RxNorm: 139994 1 Tablet(s) PO daily 05/20/2015 07/21/2015 Inactive Zofran 4 mg tablet RxNorm: 763721 1 Tablet(s) PO daily as needed 05/20/2015 06/18/2015 Inactive alprazolam 0.25 mg tablet RxNorm: 772843 1 Tablet(s) PO BID 05/20/2015 10/12/2015 Inactive Mobic 15 mg tablet RxNorm: 828672 1 Tablet(s) PO daily 05/20/2015 07/21/2015 Inactive tramadol ER 100 mg tablet,extended release 24 hr RxNorm: 921606 1 Tablet(s) PO Q6 as needed 05/13/2015 No Stop Date Active cyanocobalamin (vit B-12) 1,000 mcg/mL injection solution RxNorm: 192861 1 Milliliter(s) Inj 05/12/2015 05/12/2015 Inactive Topamax 25 mg tablet RxNorm: 423970 1 Tablet(s) PO BID (start at one pill at bedtime x 1week then twice daily thereafter) 05/12/2015 09/02/2015 Inactive cyanocobalamin (vit B-12) 1,000 mcg/mL injection kit RxNorm: 623309 kit Inj 04/30/2015 04/30/2015 Inactive cyanocobalamin (vit B-12) 1,000 mcg/mL injection solution RxNorm: 128876 Milliliter(s) Inj 04/16/2015 04/16/2015 Inactive levothyroxine 150 mcg tablet RxNorm: 208717 1 Tablet(s) PO daily 04/08/2015 07/21/2015 Inactive cyanocobalamin (vit B-12) 1,000 mcg/mL injection solution RxNorm: 745549 Milliliter(s) 1 Milliliter(s) Inj [id number] 04/08/2015 04/10/2016 Inactive Cytomel 5 mcg tablet RxNorm: 756930 1 Tablet(s) PO BID 04/08/2015 10/12/2015 Inactive Cytomel 5 mcg tablet RxNorm: 923240 1 Tablet(s) PO BID 04/07/2015 04/07/2015 Inactive Cytomel 5 mcg tablet RxNorm: 121344 1 Tablet(s) PO BID 04/07/2015 04/06/2015 Inactive cyanocobalamin (vit B-12) 1,000 mcg/mL injection solution RxNorm: 789358 Milliliter(s) Inj 04/02/2015 04/02/2015 Inactive cyanocobalamin (vit B-12) 1,000 mcg/mL injection solution RxNorm: 341479 Milliliter(s) Inj 03/18/2015 03/18/2015 Inactive cyanocobalamin (vit B-12) 1,000 mcg/mL injection solution RxNorm: 342534 Milliliter(s) 1 Milliliter(s) Inj [id number] 03/18/2015 04/07/2015 Inactive cyanocobalamin (vit B-12) 1,000 mcg/mL injection solution RxNorm: 700513 1 Milliliter(s) Inj [id number] 03/16/2015 03/17/2015 Inactive cyanocobalamin (vit B-12) 1,000 mcg/mL injection solution RxNorm: 986531 Milliliter(s) Inj 03/03/2015 03/03/2015 Inactive cyanocobalamin (vit B-12) 1,000 mcg/mL injection solution RxNorm: 907948 Milliliter(s) Inj 02/18/2015 02/18/2015 Inactive cyanocobalamin (vit B-12) 1,000 mcg/mL injection solution RxNorm: 934231 Milliliter(s) Inj 02/04/2015 02/04/2015 Inactive cyanocobalamin (vit B-12) 1,000 mcg/mL injection solution RxNorm: 695292 Milliliter(s) Inj 01/22/2015 01/22/2015 Inactive Lac-Hydrin Five 5 % lotion RxNorm: 856146 1 TOP daily 01/13/2015 03/13/2015 Inactive Lac-Hydrin Five 5 % lotion RxNorm: 282094 1 TOP daily 01/13/2015 01/12/2015 Inactive cyanocobalamin (vit B-12) 1,000 mcg/mL injection solution RxNorm: 516268 Milliliter(s) Inj 01/08/2015 01/08/2015 Inactive cyanocobalamin (vit B-12) 1,000 mcg/mL injection solution RxNorm: 016107 Milliliter(s) Inj 12/25/2014 12/25/2014 Inactive levothyroxine 150 mcg tablet RxNorm: 160575 1 Tablet(s) PO daily 12/24/2014 04/07/2015 Inactive tramadol 50 mg tablet RxNorm: 504868 1-2 Tablet(s) PO Q6 as needed 12/17/2014 05/12/2015 Inactive alprazolam 0.25 mg tablet RxNorm: 274085 1 Tablet(s) PO BID 12/17/2014 04/15/2015 Inactive Pradaxa 150 mg capsule RxNorm: 5814228 1 Capsule(s) PO BID 12/16/2014 No Stop Date Active metoprolol tartrate 50 mg tablet RxNorm: 019656 1/2 Tablet(s) PO BID 12/16/2014 09/13/2016 Inactive buspirone 15 mg tablet RxNorm: 446261 1 Tablet(s) PO BID 12/16/2014 09/13/2015 Inactive cyanocobalamin (vit B-12) 1,000 mcg/mL injection solution RxNorm: 463468 1 Milliliter(s) Inj [id number] 12/16/2014 03/15/2015 Inactive cyanocobalamin (vit B-12) 1,000 mcg/mL injection solution RxNorm: 060178 1 Milliliter(s) Inj [id number] 12/16/2014 12/15/2014 Inactive sucralfate 1 gram tablet RxNorm: 486166 Tablet(s) PO QID 12/16/2014 12/10/2015 Inactive cyanocobalamin (vit B-12) 1,000 mcg/mL injection solution RxNorm: 426939 Milliliter(s) Inj 12/10/2014 12/10/2014 Inactive cyanocobalamin (vit B-12) 1,000 mcg/mL injection solution RxNorm: 808885 Milliliter(s) Inj 11/26/2014 11/26/2014 Inactive Zoloft 50 mg tablet RxNorm: 950511 1 Tablet(s) PO daily 11/24/2014 06/21/2015 Inactive Zoloft 50 mg tablet RxNorm: 145966 1 Tablet(s) PO daily 11/24/2014 11/23/2014 Inactive cyanocobalamin (vit B-12) 1,000 mcg/mL injection kit RxNorm: 937589 Milliliter(s) Inj 11/12/2014 11/12/2014 Inactive cyanocobalamin (vit B-12) 1,000 mcg/mL injection solution RxNorm: 923569 Milliliter(s) Inj 10/28/2014 10/28/2014 Inactive [SAVINGS FOR NON-COVERED DRUGS -- BIN:[id number], PCN: [id number], Group: [id number], ID# [id number], Questions: . THIS IS NOT INSURANCE.] promethazine oral RxNorm: 8745 oral No Start Date Active tramadol 50 mg tablet RxNorm: 232351 1 Tablet(s) PO TID No Start Date Active digoxin 125 mcg tablet RxNorm: 160411 Tablet(s) PO every other day No Start Date Active furosemide 40 mg tablet RxNorm: 878414 1 Tablet(s) PO daily No Start Date Active Vitamin D3 5,000 unit tablet RxNorm: 450999 1 Tablet(s) PO daily No Start Date Active erythromycin 250 mg capsule,delayed release RxNorm: 383982 1 Capsule(s) PO AC No Start Date Active Protonix 40 mg tablet,delayed release RxNorm: 454957 1 Tablet(s) PO BID No Start Date Active Cozaar 100 mg tablet RxNorm: 719630 1 Tablet(s) PO daily No Start Date 09/13/2016 Inactive sucralfate 1 gram tablet RxNorm: 042063 Tablet(s) PO QID No Start Date 12/15/2014 Inactive amiodarone 200 mg tablet RxNorm: 108772 2 Tablet(s) PO daily No Start Date 10/13/2015 Inactive buspirone 15 mg tablet RxNorm: 367095 1 Tablet(s) PO daily No Start Date 12/15/2014 Inactive potassium chloride ER 20 mEq tablet,extended release RxNorm: 013171 1 Tablet(s) PO daily No Start Date 10/12/2015 Inactive Prilosec 40 mg capsule,delayed release RxNorm: 730221 1 Capsule(s) PO daily No Start Date 09/02/2015 Inactive Mantador 3 capsule RxNorm: Capsule(s) PO No Start Date 10/12/2015 Inactive alprazolam 0.25 mg tablet RxNorm: 514707 Tablet(s) PO QHS No Start Date 12/16/2014 Inactive levothyroxine 125 mcg tablet RxNorm: 645642 1 Tablet(s) PO daily No Start Date 12/23/2014 Inactive liothyronine 5 mcg tablet RxNorm: 401481 1 Tablet(s) PO BID No Start Date 07/21/2015 Inactive Mobic 15 mg tablet RxNorm: 108808 Tablet(s) PO daily No Start Date 05/19/2015 Inactive Norvasc 5 mg tablet RxNorm: 297946 1 Tablet(s) PO daily No Start Date 09/16/2015 Inactive Zofran 4 mg tablet RxNorm: 005239 1 Tablet(s) PO daily as needed No Start Date 05/19/2015 Inactive Tamiflu 75 mg capsule RxNorm: 609106 1 Capsule(s) PO BID No Start Date 07/23/2017 Inactive tramadol 50 mg tablet RxNorm: 233147 1 Tablet(s) PO daily as needed No Start Date 12/16/2014 Inactive amiodarone 200 mg tablet RxNorm: 467287 1 Tablet(s) PO daily No Start Date 10/12/2015 Inactive Zofran ODT 4 mg disintegrating tablet RxNorm: 930741 1 Tablet(s) PO TID as needed No Start Date 05/02/2017 Inactive albuterol sulfate 2.5 mg/3 mL (0.083 %) solution for nebulization RxNorm: 808325 3 Milliliter(s) INH Q6 PRN No Start Date 09/20/2017 Inactive meclizine 25 mg tablet RxNorm: 000013 Tablet(s) PO as needed No Start Date 05/24/2016 Inactive Pradaxa 150 mg capsule RxNorm: 3506180 1 Capsule(s) PO daily No Start Date 12/15/2014 Inactive metoprolol tartrate 50 mg tablet RxNorm: 320170 1/2 Tablet(s) PO No Start Date 12/15/2014 Inactive Aricept 10 mg tablet RxNorm: 818269 Tablet(s) PO daily No Start Date 05/19/2015 Inactive Calmoseptine 0.44 %-20.6 % topical ointment RxNorm: 746642 1 Application TOP BID and as needed to sore on buttocks No Start Date 09/06/2016 Inactive Zithromax Z-Henrique 250 mg tablet RxNorm: 933359 1 Tablet(s) PO UD No Start Date 11/09/2015 Inactive zpack x 1 Medication Administered Medication Codes Instructions Start Date Status cyanocobalamin (vit B-12) 1,000 mcg/mL injection solution RxNorm: 719467 Milliliter 09/11/2018 Active cyanocobalamin (vit B-12) 1,000 mcg/mL injection solution RxNorm: 381516 Milliliter 08/29/2018 No longer Active cyanocobalamin (vit B-12) 1,000 mcg/mL injection solution RxNorm: 251010 Milliliter 08/15/2018 No longer Active Kenalog 40 mg/mL suspension for injection RxNorm: 6719752 Milliliter 08/15/2018 No longer Active cyanocobalamin (vit B-12) 1,000 mcg/mL injection solution RxNorm: 754275 Milliliter 08/01/2018 No longer Active cyanocobalamin (vit B-12) 1,000 mcg/mL injection solution RxNorm: 059031 Milliliter 07/19/2018 No longer Active cyanocobalamin (vit B-12) 1,000 mcg/mL injection solution RxNorm: 207158 Milliliter 07/04/2018 No longer Active cyanocobalamin (vit B-12) 1,000 mcg/mL injection solution RxNorm: 203343 Milliliter 06/20/2018 No longer Active cyanocobalamin (vit B-12) 1,000 mcg/mL injection solution RxNorm: 207239 Milliliter 06/06/2018 No longer Active cyanocobalamin (vit B-12) 1,000 mcg/mL injection solution RxNorm: 721815 Milliliter 05/24/2018 No longer Active cyanocobalamin (vit B-12) 1,000 mcg/mL injection solution RxNorm: 247496 Milliliter 05/09/2018 No longer Active cyanocobalamin (vit B-12) 1,000 mcg/mL injection solution RxNorm: 215564 Milliliter 04/26/2018 No longer Active cyanocobalamin (vit B-12) 1,000 mcg/mL injection solution RxNorm: 488262 Milliliter 04/12/2018 No longer Active cyanocobalamin (vit B-12) 1,000 mcg/mL injection solution RxNorm: 854399 Milliliter 03/30/2018 No longer Active cyanocobalamin (vit B-12) 1,000 mcg/mL injection solution RxNorm: 816749 Milliliter 03/16/2018 No longer Active cyanocobalamin (vit B-12) 1,000 mcg/mL injection solution RxNorm: 152349 Milliliter 03/02/2018 No longer Active cyanocobalamin (vit B-12) 1,000 mcg/mL injection solution RxNorm: 764392 Milliliter 02/08/2018 No longer Active cyanocobalamin (vit B-12) 1,000 mcg/mL injection solution RxNorm: 127801 Milliliter 01/24/2018 No longer Active cyanocobalamin (vit B-12) 1,000 mcg/mL injection solution RxNorm: 613551 Milliliter 01/10/2018 No longer Active cyanocobalamin (vit B-12) 1,000 mcg/mL injection solution RxNorm: 639201 Milliliter 12/27/2017 No longer Active cyanocobalamin (vit B-12) 1,000 mcg/mL injection solution RxNorm: 121735 1Milliliter 12/12/2017 No longer Active cyanocobalamin (vit B-12) 1,000 mcg/mL injection solution RxNorm: 346604 Milliliter 12/01/2017 No longer Active cyanocobalamin (vit B-12) 1,000 mcg/mL injection solution RxNorm: 107901 1Milliliter 11/17/2017 No longer Active cyanocobalamin (vit B-12) 1,000 mcg/mL injection solution RxNorm: 485732 1Milliliter 11/02/2017 No longer Active cyanocobalamin (vit B-12) 1,000 mcg/mL injection solution RxNorm: 587224 1Milliliter 10/20/2017 No longer Active cyanocobalamin (vit B-12) 1,000 mcg/mL injection solution RxNorm: 447976 Milliliter 10/06/2017 No longer Active cyanocobalamin (vit B-12) 1,000 mcg/mL injection solution RxNorm: 312156 Milliliter 09/21/2017 No longer Active Kenalog 40 mg/mL suspension for injection RxNorm: 5538335 Milliliter 09/15/2017 No longer Active cyanocobalamin (vit B-12) 1,000 mcg/mL injection solution RxNorm: 346300 Milliliter 09/07/2017 No longer Active cyanocobalamin (vit B-12) 1,000 mcg/mL injection solution RxNorm: 738025 Milliliter 08/24/2017 No longer Active cyanocobalamin (vit B-12) 1,000 mcg/mL injection solution RxNorm: 167989 Milliliter 07/06/2017 No longer Active Kenalog 40 mg/mL suspension for injection RxNorm: 8000193 1Milliliter 06/20/2017 No longer Active cyanocobalamin (vit B-12) 1,000 mcg/mL injection solution RxNorm: 680328 Milliliter 06/20/2017 No longer Active cyanocobalamin (vit B-12) 1,000 mcg/mL injection solution RxNorm: 631859 Milliliter 06/05/2017 No longer Active cyanocobalamin (vit B-12) 1,000 mcg/mL injection solution RxNorm: 128134 Milliliter 05/25/2017 No longer Active cyanocobalamin (vit B-12) 1,000 mcg/mL injection solution RxNorm: 225712 Milliliter 05/16/2017 No longer Active cyanocobalamin (vit B-12) 1,000 mcg/mL injection solution RxNorm: 433854 1Milliliter 05/01/2017 No longer Active cyanocobalamin (vit B-12) 1,000 mcg/mL injection solution RxNorm: 248207 Milliliter 04/18/2017 No longer Active cyanocobalamin (vit B-12) 1,000 mcg/mL injection solution RxNorm: 354730 Milliliter 04/06/2017 No longer Active cyanocobalamin (vit B-12) 1,000 mcg/mL injection solution RxNorm: 946073 Milliliter 03/22/2017 No longer Active cyanocobalamin (vit B-12) 1,000 mcg/mL injection solution RxNorm: 230667 Milliliter 03/09/2017 No longer Active cyanocobalamin (vit B-12) 1,000 mcg/mL injection solution RxNorm: 675897 Milliliter 02/23/2017 No longer Active cyanocobalamin (vit B-12) 1,000 mcg/mL injection solution RxNorm: 555552 Milliliter 02/09/2017 No longer Active cyanocobalamin (vit B-12) 1,000 mcg/mL injection solution RxNorm: 481266 Milliliter 01/23/2017 No longer Active cyanocobalamin (vit B-12) 1,000 mcg/mL injection solution RxNorm: 303713 Milliliter 01/10/2017 No longer Active cyanocobalamin (vit B-12) 1,000 mcg/mL injection solution RxNorm: 849066 1Milliliter 12/28/2016 No longer Active cyanocobalamin (vit B-12) 1,000 mcg/mL injection solution RxNorm: 932928 Milliliter 12/14/2016 No longer Active cyanocobalamin (vit B-12) 1,000 mcg/mL injection solution RxNorm: 226392 Milliliter 11/24/2016 No longer Active cyanocobalamin (vit B-12) 1,000 mcg/mL injection solution RxNorm: 753004 1Milliliter 11/07/2016 No longer Active cyanocobalamin (vit B-12) 1,000 mcg/mL injection solution RxNorm: 861095 Milliliter 10/24/2016 No longer Active cyanocobalamin (vit B-12) 1,000 mcg/mL injection solution RxNorm: 315440 1Milliliter 09/29/2016 No longer Active cyanocobalamin (vit B-12) 1,000 mcg/mL injection solution RxNorm: 174368 Milliliter 08/29/2016 No longer Active cyanocobalamin (vit B-12) 1,000 mcg/mL injection solution RxNorm: 743673 Milliliter 08/04/2016 No longer Active cyanocobalamin (vit B-12) 1,000 mcg/mL injection solution RxNorm: 694232 Milliliter 07/21/2016 No longer Active cyanocobalamin (vit B-12) 1,000 mcg/mL injection solution RxNorm: 968559 1Milliliter 07/05/2016 No longer Active cyanocobalamin (vit B-12) 1,000 mcg/mL injection solution RxNorm: 879087 1Milliliter 06/22/2016 No longer Active cyanocobalamin (vit B-12) 1,000 mcg/mL injection solution RxNorm: 700977 Milliliter 06/09/2016 No longer Active cyanocobalamin (vit B-12) 1,000 mcg/mL injection solution RxNorm: 216179 1Milliliter 05/25/2016 No longer Active cyanocobalamin (vit B-12) 1,000 mcg/mL injection solution RxNorm: 263600 Milliliter 05/10/2016 No longer Active cyanocobalamin (vit B-12) 1,000 mcg/mL injection solution RxNorm: 295150 Milliliter 04/26/2016 No longer Active cyanocobalamin (vit B-12) 1,000 mcg/mL injection solution RxNorm: 997479 Milliliter 04/11/2016 No longer Active cyanocobalamin (vit B-12) 1,000 mcg/mL injection solution RxNorm: 976228 Milliliter 03/31/2016 No longer Active cyanocobalamin (vit B-12) 1,000 mcg/mL injection solution RxNorm: 205420 1Milliliter 03/15/2016 No longer Active cyanocobalamin (vit B-12) 1,000 mcg/mL injection solution RxNorm: 968316 Milliliter 02/25/2016 No longer Active cyanocobalamin (vit B-12) 1,000 mcg/mL injection solution RxNorm: 307625 1Milliliter 02/02/2016 No longer Active cyanocobalamin (vit B-12) 1,000 mcg/mL injection solution RxNorm: 202917 Milliliter 01/18/2016 No longer Active cyanocobalamin (vit B-12) 1,000 mcg/mL injection solution RxNorm: 325629 Milliliter 12/29/2015 No longer Active cyanocobalamin (vit B-12) 1,000 mcg/mL injection solution RxNorm: 674477 Milliliter 12/08/2015 No longer Active cyanocobalamin (vit B-12) 1,000 mcg/mL injection solution RxNorm: 301641 Milliliter 11/23/2015 No longer Active cyanocobalamin (vit B-12) 1,000 mcg/mL injection solution RxNorm: 565951 Milliliter 11/11/2015 No longer Active cyanocobalamin (vit B-12) 1,000 mcg/mL injection solution RxNorm: 129501 1Milliliter 10/29/2015 No longer Active cyanocobalamin (vit B-12) 1,000 mcg/mL injection solution RxNorm: 094268 1Milliliter 10/12/2015 No longer Active cyanocobalamin (vit B-12) 1,000 mcg/mL injection solution RxNorm: 655711 1Milliliter 09/29/2015 No longer Active cyanocobalamin (vit B-12) 1,000 mcg/mL injection solution RxNorm: 227448 1Milliliter 09/17/2015 No longer Active cyanocobalamin (vit B-12) 1,000 mcg/mL injection solution RxNorm: 782644 1Milliliter 09/03/2015 No longer Active cyanocobalamin (vit B-12) 1,000 mcg/mL injection solution RxNorm: 691306 Milliliter 08/17/2015 No longer Active cyanocobalamin (vit B-12) 1,000 mcg/mL injection solution RxNorm: 293864 Milliliter 08/06/2015 No longer Active cyanocobalamin (vit B-12) 1,000 mcg/mL injection solution RxNorm: 720905 Milliliter 07/22/2015 No longer Active cyanocobalamin (vit B-12) 1,000 mcg/mL injection solution RxNorm: 960431 Milliliter 07/08/2015 No longer Active cyanocobalamin (vit B-12) 1,000 mcg/mL injection solution RxNorm: 413429 Milliliter 06/23/2015 No longer Active cyanocobalamin (vit B-12) 1,000 mcg/mL injection solution RxNorm: 810148 1Milliliter 06/08/2015 No longer Active cyanocobalamin (vit B-12) 1,000 mcg/mL injection solution RxNorm: 726164 Milliliter 05/27/2015 No longer Active cyanocobalamin (vit B-12) 1,000 mcg/mL injection solution RxNorm: 910283 1Milliliter 05/12/2015 No longer Active cyanocobalamin (vit B-12) 1,000 mcg/mL injection kit RxNorm: 282601 kit 04/30/2015 No longer Active cyanocobalamin (vit B-12) 1,000 mcg/mL injection solution RxNorm: 384149 Milliliter 04/16/2015 No longer Active cyanocobalamin (vit B-12) 1,000 mcg/mL injection solution RxNorm: 309067 Milliliter 04/02/2015 No longer Active cyanocobalamin (vit B-12) 1,000 mcg/mL injection solution RxNorm: 070652 Milliliter 03/18/2015 No longer Active cyanocobalamin (vit B-12) 1,000 mcg/mL injection solution RxNorm: 217979 Milliliter 03/03/2015 No longer Active cyanocobalamin (vit B-12) 1,000 mcg/mL injection solution RxNorm: 259379 Milliliter 02/18/2015 No longer Active cyanocobalamin (vit B-12) 1,000 mcg/mL injection solution RxNorm: 033254 Milliliter 02/04/2015 No longer Active cyanocobalamin (vit B-12) 1,000 mcg/mL injection solution RxNorm: 441828 Milliliter 01/22/2015 No longer Active cyanocobalamin (vit B-12) 1,000 mcg/mL injection solution RxNorm: 780229 Milliliter 01/08/2015 No longer Active cyanocobalamin (vit B-12) 1,000 mcg/mL injection solution RxNorm: 085999 Milliliter 12/25/2014 No longer Active cyanocobalamin (vit B-12) 1,000 mcg/mL injection solution RxNorm: 520683 Milliliter 12/10/2014 No longer Active cyanocobalamin (vit B-12) 1,000 mcg/mL injection solution RxNorm: 443149 Milliliter 11/26/2014 No longer Active cyanocobalamin (vit B-12) 1,000 mcg/mL injection kit RxNorm: 989682 Milliliter 11/12/2014 No longer Active cyanocobalamin (vit B-12) 1,000 mcg/mL injection solution RxNorm: 687184 Milliliter 10/28/2014 No longer Active Immunizations Vaccine [...] Code Item Item Code Result Date Microalbumin [id number] MicroAlb <0.7 mg/dL 09/11/2018 Tsh Ord6 TSH (3rd IS) 6.48 uIU/mL 09/10/2018 Free T4 Nfg170 FREE T4 0.89 ng/dL 09/10/2018 Lipid Ord30 CHOL 177 mg/dL 09/10/2018 Lipid Ord30 HDL 64.0 mg/dl 09/10/2018 Lipid Ord30 TRIG 126 mg/dL 09/10/2018 Lipid Ord30 LDL 88 mg/dL 09/10/2018 Lipid Ord30 C/HDL 2.8 Ratio 09/10/2018 Comp Metabolic Qlw516 NA 139 mEq/L 09/10/2018 Comp Metabolic Dys874 K 4.8 mEq/L 09/10/2018 Comp Metabolic Usm038 CL 103 mEq/L 09/10/2018 Comp Metabolic Zzv005 CO2 25.0 mEq/L 09/10/2018 Comp Metabolic Tmw884 ANION GAP 16 09/10/2018 Comp Metabolic Dvz452 GLUCOSE 104 mg/dL 09/10/2018 Comp Metabolic Fjm903 Creat 1.0 mg/dL 09/10/2018 Comp Metabolic Vhb090 eGFR 54 ml/min/1.73m2 09/10/2018 Comp Metabolic Xok851 BUN 25 mg/dL 09/10/2018 Comp Metabolic Vvi955 B/C Ratio 24.3 Ratio 09/10/2018 Comp Metabolic Owh275 CALCIUM 9.3 mg/dL 09/10/2018 Comp Metabolic Pjx591 ALK PHOS 71 U/L 09/10/2018 Comp Metabolic Xrj168 AST(SGOT) 25 U/L 09/10/2018 Comp Metabolic Ivy274 ALT(SGPT) 28 U/L 09/10/2018 Comp Metabolic Htk044 BILI T 0.7 mg/dL 09/10/2018 Comp Metabolic Qaa980 ALBUMIN 4.2 g/dL 09/10/2018 Comp Metabolic Yef011 TPRO 6.5 g/dL 09/10/2018 Comp Metabolic Xwh315 GLOB 2.3 g/dL 09/10/2018 Comp Metabolic Bjh568 A/G Ratio 1.8 Ratio 09/10/2018 Comp Metabolic Gkk588 Osmo 282 mOsmo 09/10/2018 Cbc With Differential Ord2 WBC 6.95 K/ul 09/10/2018 Cbc With Differential Ord2 RBC 4.62 M/ul 09/10/2018 Cbc With Differential Ord2 HGB 12.8 g/dl 09/10/2018 Cbc With Differential Ord2 HCT 41.1 % 09/10/2018 Cbc With Differential Ord2 Neut% 55.7 % 09/10/2018 Cbc With Differential Ord2 MCV 89.0 fl 09/10/2018 Cbc With Differential Ord2 Lymph% 32.2 % 09/10/2018 Cbc With Differential Ord2 MCH 27.7 pg 09/10/2018 Cbc With Differential Ord2 [place]% 8.8 % 09/10/2018 Cbc With Differential Ord2 [...] 2.24 K/ul 09/10/2018 Cbc With Differential Ord2 [place] ABS# 0.6 K/ul 09/10/2018 Cbc With Differential Ord2 Eos ABS# 0.2 K/ul 09/10/2018 Cbc With Differential Ord2 Baso ABS# 0.1 K/ul 09/10/2018 %Hba1C Bzu835 % HbA1c 24349- 6 6.0 % 09/10/2018 %Hba1C Aaj871 Gluc Ave 126 mg/dL 09/10/2018 Test(s) Not Perfromed [id number] Test(s) Not Performed Test(s) Not Performed. See Below: 09/10/2018 Test(s) Not Perfromed [id number] TEST NAME Microalbumin 09/10/2018 Test(s) Not Perfromed [id number] Rejection Reason Patient Unable to Void 09/10/2018 Test(s) Not Perfromed [id number] COMMENT Patient to deliver sample to the lab at a later date 09/10/2018 Test(s) Not Perfromed [id number] [employer] Favio Mulligan 09/10/2018 Lipid Ord30 CHOL 174 mg/dL 05/29/2018 Lipid Ord30 HDL 49.0 mg/dl 05/29/2018 Lipid Ord30 TRIG 200 mg/dL 05/29/2018 Lipid Ord30 LDL 85 mg/dL 05/29/2018 Lipid Ord30 C/HDL 3.6 Ratio 05/29/2018 Tsh Ord6 TSH (3rd IS) 3.20 uIU/mL 02/26/2018 Free T4 [id number] FREE T4 0.99 ng/dL 02/26/2018 Cbc With [...] 28.5 pg 02/26/2018 Cbc With Differential Ord2 [place]% 10.3 % 02/26/2018 Cbc With Differential Ord2 [...] 1.80 K/ul 02/26/2018 Cbc With Differential Ord2 [place] ABS# 0.7 K/ul 02/26/2018 Cbc With Differential Ord2 Eos ABS# 0.2 K/ul 02/26/2018 Cbc With Differential Ord2 Baso ABS# 0.0 K/ul 02/26/2018 B12 Gev601 B12 889.00 pg/ml 02/26/2018 Digoxin Ord9 DIGOXIN 0.7 NG/ML 11/23/2017 Comp Metabolic Gue539 NA 142 mEq/L 11/23/2017 Comp Metabolic Bdq190 K 4.9 mEq/L 11/23/2017 Comp Metabolic Zxz793 CL 112 mEq/L 11/23/2017 Comp Metabolic Lqu630 CO2 18.0 mEq/L 11/23/2017 Comp Metabolic Vcv085 ANION GAP 17 11/23/2017 Comp Metabolic Ejt568 GLUCOSE 123 mg/dL 11/23/2017 Comp Metabolic Itt928 Creat 1.0 mg/dL 11/23/2017 Comp Metabolic Qme130 eGFR 59 ml/min/1.73m2 11/23/2017 Comp Metabolic Xly674 BUN 24 mg/dL 11/23/2017 Comp Metabolic Jtg651 B/C Ratio 25.0 Ratio 11/23/2017 Comp Metabolic Xnf182 CALCIUM 9.4 mg/dL 11/23/2017 Comp Metabolic Qht280 ALK PHOS 56 U/L 11/23/2017 Comp Metabolic Etl822 AST(SGOT) 17 U/L 11/23/2017 Comp Metabolic Bne167 ALT(SGPT) 16 U/L 11/23/2017 Comp Metabolic Emw329 BILI T 0.7 mg/dL 11/23/2017 Comp Metabolic Vgk940 ALBUMIN 3.8 g/dL 11/23/2017 Comp Metabolic Mmy234 TPRO 6.2 g/dL 11/23/2017 Comp Metabolic Izn098 GLOB 2.4 g/dL 11/23/2017 Comp Metabolic Yxf774 A/G Ratio 1.6 Ratio 11/23/2017 Comp Metabolic Wds387 Osmo 289 mOsmo 11/23/2017 Free T4 Qnc510 FREE T4 1.04 ng/dL 11/23/2017 %Hba1C Bjs464 % HbA1c 36291- 6 6.4 % 11/23/2017 %Hba1C Nrj032 Gluc Ave 137 mg/dL 11/23/2017 Lipid Ord30 CHOL 179 mg/dL 11/23/2017 Lipid Ord30 HDL 51.0 mg/dl 11/23/2017 Lipid Ord30 TRIG 134 mg/dL 11/23/2017 Lipid Ord30 LDL 101 mg/dL 11/23/2017 Lipid Ord30 C/HDL 3.5 Ratio 11/23/2017 Tsh Ord6 TSH (3rd IS) 1.00 uIU/mL 11/23/2017 Microalbumin Toh937 MicroAlb <0.7 mg/dL 11/23/2017 Comp Metabolic Hqo833 NA 141 mEq/L 01/23/2017 Comp Metabolic Ugw212 K 4.5 mEq/L 01/23/2017 Comp Metabolic Kyh627 CL 107 mEq/L 01/23/2017 Comp Metabolic Naz272 CO2 21.0 mEq/L 01/23/2017 Comp Metabolic Nhv883 ANION GAP 18 01/23/2017 Comp Metabolic Hey185 GLUCOSE 138 mg/dL 01/23/2017 Comp Metabolic Qmz666 Creat 1.0 mg/dL 01/23/2017 Comp Metabolic Uwj642 eGFR 56 ml/min/1.73m2 01/23/2017 Comp Metabolic Thh459 BUN 26 mg/dL 01/23/2017 Comp Metabolic Tzn106 B/C Ratio 25.7 Ratio 01/23/2017 Comp Metabolic Zta429 CALCIUM 9.0 mg/dL 01/23/2017 Comp Metabolic Uhk902 ALK PHOS 37 U/L 01/23/2017 Comp Metabolic Lhn176 AST(SGOT) 20 U/L 01/23/2017 Comp Metabolic Lzw023 ALT(SGPT) 25 U/L 01/23/2017 Comp Metabolic Pgw682 BILI T 0.9 mg/dL 01/23/2017 Comp Metabolic Ytb277 ALBUMIN 3.8 g/dL 01/23/2017 Comp Metabolic Vfj089 TPRO 6.5 g/dL 01/23/2017 Comp Metabolic Zto751 GLOB 2.7 g/dL 01/23/2017 Comp Metabolic Gfx063 A/G Ratio 1.4 Ratio 01/23/2017 Comp Metabolic Htp329 Osmo 288 mOsmo 01/23/2017 Free T4 Phm082 FREE T4 1.05 ng/dL 01/23/2017 %Hba1C Olg443 % HbA1c 31739- 6 6.1 % 01/23/2017 %Hba1C Afl081 Gluc Ave 128 mg/dL 01/23/2017 Tsh Ord6 hTSH II 1.68 uIU/mL 01/23/2017 Culture Urine [id number] URINE CULTURE SEE NOTES 11/10/2016 Culture Urine [id number] Continued Results 11/10/2016 Urine Culture Ucult Complete [...] Ord15 CALCIUM 9.3 mg/dL 09/29/2016 Free T4 Wdh857 FREE T4 0.99 ng/dL 09/07/2016 Cbc With [...] 30.0 pg 09/07/2016 Cbc With Differential Ord2 [place]% 9.8 % 09/07/2016 Cbc With Differential Ord2 [...] 1.75 K/ul 09/07/2016 Cbc With Differential Ord2 [place] ABS# 0.6 K/ul 09/07/2016 Cbc With Differential Ord2 Eos ABS# 0.1 K/ul 09/07/2016 Cbc With Differential Ord2 Baso ABS# 0.0 K/ul 09/07/2016 Tsh Ord6 hTSH II 1.41 uIU/mL 09/07/2016 Culture Urine [id number] URINE CULTURE SEE NOTES 06/27/2016 Lipid Ord30 CHOL 196 mg/dL 06/22/2016 Lipid Ord30 HDL 63.0 mg/dl 06/22/2016 Lipid Ord30 TRIG 154 mg/dL 06/22/2016 Lipid Ord30 LDL 102 mg/dL 06/22/2016 Lipid Ord30 C/HDL 3.1 Ratio 06/22/2016 Hepatic Jcl667 ALBUMIN 4.2 g/dL 06/22/2016 Hepatic Acs198 TPRO 7.0 g/dL 06/22/2016 Hepatic Qxw120 GLOB 2.8 g/dL 06/22/2016 Hepatic Dvo820 A/G Ratio 1.5 Ratio 06/22/2016 Hepatic Wpi340 ALK PHOS 54 U/L 06/22/2016 Hepatic Adr891 ALT(SGPT) 30 U/L 06/22/2016 Hepatic Iop882 AST(SGOT) 24 U/L 06/22/2016 Hepatic Xfq225 BILI T 1.1 mg/dL 06/22/2016 Hepatic Mhn425 BILI D 0.2 mg/dL 06/22/2016 Hepatic Sdw887 BILI I 0.9 mg/dL 06/22/2016 Comp Metabolic Rro752 NA 139 mEq/L 06/14/2016 Comp Metabolic Evc308 K 4.6 mEq/L 06/14/2016 Comp Metabolic Ycl547 CL 108 mEq/L 06/14/2016 Comp Metabolic Tsy106 CO2 22.0 mEq/L 06/14/2016 Comp Metabolic Nxu839 ANION GAP 14 06/14/2016 Comp Metabolic Zzx646 GLUCOSE 114 mg/dL 06/14/2016 Comp Metabolic Szk905 Creat 1.2 mg/dL 06/14/2016 Comp Metabolic Oqu120 eGFR 48 ml/min/1.73m2 06/14/2016 Comp Metabolic Pte538 BUN 24 mg/dL 06/14/2016 Comp Metabolic Ytz003 B/C Ratio 20.9 Ratio 06/14/2016 Comp Metabolic Cqd053 CALCIUM 9.9 mg/dL 06/14/2016 Comp Metabolic Smv698 ALK PHOS 47 U/L 06/14/2016 Comp Metabolic Acg643 AST(SGOT) 28 U/L 06/14/2016 Comp Metabolic Qzr247 ALT(SGPT) 32 U/L 06/14/2016 Comp Metabolic Lhy687 BILI T 0.9 mg/dL 06/14/2016 Comp Metabolic Gmo392 ALBUMIN 4.1 g/dL 06/14/2016 Comp Metabolic Yeh781 TPRO 6.9 g/dL 06/14/2016 Comp Metabolic Krh686 GLOB 2.8 g/dL 06/14/2016 Comp Metabolic Tjh368 A/G Ratio 1.5 Ratio 06/14/2016 Comp Metabolic Euk615 Osmo 282 mOsmo 06/14/2016 Tsh Ord6 hTSH II 1.26 uIU/mL 06/14/2016 Free T4 Jao779 FREE T4 1.09 ng/dL 06/14/2016 Tsh Ord6 hTSH II 0.28 uIU/mL 02/02/2016 Digoxin Ord9 DIGOXIN 0.7 NG/ML 02/02/2016 Free T4 Usk044 FREE T4 1.23 ng/dL 02/02/2016 Hepatic Efj045 ALBUMIN 4.0 g/dL 02/02/2016 Hepatic Gdh985 TPRO 7.0 g/dL 02/02/2016 Hepatic Qnd332 GLOB 3.0 g/dL 02/02/2016 Hepatic Vid895 A/G Ratio 1.3 Ratio 02/02/2016 Hepatic Xrz918 ALK PHOS 57 U/L 02/02/2016 Hepatic Tnr241 ALT(SGPT) 62 U/L 02/02/2016 Hepatic Cnp613 AST(SGOT) 54 U/L 02/02/2016 Hepatic Tjq483 BILI T 0.8 mg/dL 02/02/2016 Hepatic Sua189 BILI D 0.2 mg/dL 02/02/2016 Hepatic Kye857 BILI I 0.6 mg/dL 02/02/2016 Urine Culture Ucult Preliminary No Growth Day 1 11/25/2015 Urine Culture Ucult Complete No Growth Day 2 11/25/2015 Hepatic Xbl600 ALBUMIN 3.9 g/dL 11/11/2015 Hepatic Vyy922 TPRO 7.0 g/dL 11/11/2015 Hepatic Klf860 GLOB 3.1 g/dL 11/11/2015 Hepatic Ktk692 A/G Ratio 1.3 Ratio 11/11/2015 Hepatic Unr743 ALK PHOS 63 U/L 11/11/2015 Hepatic Rec406 ALT(SGPT) 107 U/L 11/11/2015 Hepatic Awl686 AST(SGOT) 101 U/L 11/11/2015 Hepatic Jxg440 BILI T 0.6 mg/dL 11/11/2015 Hepatic Jpb360 BILI D 0.1 mg/dL 11/11/2015 Hepatic Dni515 BILI I 0.5 mg/dL 11/11/2015 Comp Metabolic Lvw693 NA 138 mEq/L 10/29/2015 Comp Metabolic Umo482 K 5.0 mEq/L 10/29/2015 Comp Metabolic Wbc371 CL 105 mEq/L 10/29/2015 Comp Metabolic Irm945 CO2 23.0 mEq/L 10/29/2015 Comp Metabolic Hlm514 ANION GAP 15 10/29/2015 Comp Metabolic Gie614 GLUCOSE 105 mg/dL 10/29/2015 Comp Metabolic Wms369 Creat 1.0 mg/dL 10/29/2015 Comp Metabolic Aod648 eGFR 55 ml/min/1.73m2 10/29/2015 Comp Metabolic Zjy499 BUN 20 mg/dL 10/29/2015 Comp Metabolic Pqp237 B/C Ratio 19.4 Ratio 10/29/2015 Comp Metabolic Cfe767 CALCIUM 8.8 mg/dL 10/29/2015 Comp Metabolic Xvb609 ALK PHOS 56 U/L 10/29/2015 Comp Metabolic Tfi202 AST(SGOT) 66 U/L 10/29/2015 Comp Metabolic Ygd658 ALT(SGPT) 78 U/L 10/29/2015 Comp Metabolic Dkx852 BILI T 0.7 mg/dL 10/29/2015 Comp Metabolic Oww438 ALBUMIN 3.6 g/dL 10/29/2015 Comp Metabolic Ixu372 TPRO 6.6 g/dL 10/29/2015 Comp Metabolic Tfa161 GLOB 3.0 g/dL 10/29/2015 Comp Metabolic Rpo730 A/G Ratio 1.2 Ratio 10/29/2015 Comp Metabolic Hjv448 Osmo 279 mOsmo 10/29/2015 Comp Metabolic Nuf618 NA 136 mEq/L 09/03/2015 Comp Metabolic Wxm993 K 4.4 mEq/L 09/03/2015 Comp Metabolic Cto907 CL 103 mEq/L 09/03/2015 Comp Metabolic Ele932 CO2 24.0 mEq/L 09/03/2015 Comp Metabolic Rlc863 ANION GAP 13 09/03/2015 Comp Metabolic Kgz977 GLUCOSE 87 mg/dL 09/03/2015 Comp Metabolic Npq992 Creat 1.1 mg/dL 09/03/2015 Comp Metabolic Fba328 eGFR 53 ml/min/1.73m2 09/03/2015 Comp Metabolic Ajj328 BUN 17 mg/dL 09/03/2015 Comp Metabolic Lev737 B/C Ratio 16.2 Ratio 09/03/2015 Comp Metabolic Mko374 CALCIUM 9.0 mg/dL 09/03/2015 Comp Metabolic Vjk636 ALK PHOS 55 U/L 09/03/2015 Comp Metabolic Bki232 AST(SGOT) 83 U/L 09/03/2015 Comp Metabolic Dqy756 ALT(SGPT) 126 U/L 09/03/2015 Comp Metabolic Iyf118 BILI T 0.9 mg/dL 09/03/2015 Comp Metabolic Eka567 ALBUMIN 3.9 g/dL 09/03/2015 Comp Metabolic Avv957 TPRO 6.8 g/dL 09/03/2015 Comp Metabolic Fyn005 GLOB 2.9 g/dL 09/03/2015 Comp Metabolic Pau611 A/G Ratio 1.4 Ratio 09/03/2015 Comp Metabolic Raq302 Osmo 273 mOsmo 09/03/2015 Total T3 Ord42 TT3 0.6 ng/ml 07/09/2015 Tsh Ord6 hTSH II 1.62 uIU/mL 07/09/2015 Total T3 Ord42 TT3 0.5 ng/ml 04/02/2015 Free T4 Uyy399 FREE T4 1.23 ng/dL 04/02/2015 Tsh Ord6 [...] Procedure Codes Date THER/PROPH/DIAG INJ SC/IM CPT-4: 30751 09/11/2018 THER/PROPH/DIAG INJ SC/IM CPT-4: 75588 08/29/2018 THER/PROPH/DIAG INJ SC/IM CPT-4: 70907 08/15/2018 TRIAMCINOLONE ACET INJ NOS CPT-4: J3301 08/15/2018 THER/PROPH/DIAG INJ SC/IM CPT-4: 15353 08/01/2018 VITAMIN B12 INJECTION CPT- 4: J3420 08/01/2018 THER/PROPH/DIAG INJ SC/IM CPT-4: 14500 07/19/2018 THER/PROPH/DIAG INJ SC/IM CPT-4: 80567 07/04/2018 THER/PROPH/DIAG INJ SC/IM CPT-4: 54727 06/20/2018 THER/PROPH/DIAG INJ SC/IM CPT-4: 04330 06/06/2018 VITAMIN B12 INJECTION CPT- 4: J3420 06/06/2018 THER/PROPH/DIAG INJ SC/IM CPT-4: 65185 05/24/2018 THER/PROPH/DIAG INJ SC/IM CPT-4: 66991 05/09/2018 THER/PROPH/DIAG INJ SC/IM CPT-4: 74106 04/26/2018 VITAMIN B12 INJECTION CPT- 4: J3420 04/26/2018 THER/PROPH/DIAG INJ SC/IM CPT-4: 91861 04/12/2018 THER/PROPH/DIAG INJ SC/IM CPT-4: 01019 03/30/2018 THER/PROPH/DIAG INJ SC/IM CPT-4: 11784 03/16/2018 VITAMIN B12 INJECTION CPT- 4: J3420 03/16/2018 ADMIN INFLUENZA VIRUS VAC CPT-4: G0008 03/16/2018 FLU VACC PRSV FREE INC ANTIG Formatting Model/CDA Sections, Assigned to/Nga Ojeda CPT-4: 25057Acricin 03/16/2018 THER/PROPH/DIAG INJ SC/IM CPT-4: 93682 03/02/2018 THER/PROPH/DIAG INJ SC/IM CPT-4: 37096 02/08/2018 THER/PROPH/DIAG INJ SC/IM CPT-4: 63031 01/24/2018 THER/PROPH/DIAG INJ SC/IM CPT-4: 30054 01/10/2018 THER/PROPH/DIAG INJ SC/IM CPT-4: 20741 12/27/2017 VITAMIN B12 INJECTION CPT- 4: J3420 12/27/2017 THER/PROPH/DIAG INJ SC/IM CPT-4: 57428 12/12/2017 THER/PROPH/DIAG INJ SC/IM CPT-4: 05684 12/01/2017 VITAMIN B12 INJECTION CPT- 4: J3420 12/01/2017 THER/PROPH/DIAG INJ SC/IM CPT-4: 59146 11/17/2017 THER/PROPH/DIAG INJ SC/IM CPT-4: 99278 11/02/2017 THER/PROPH/DIAG INJ SC/IM CPT-4: 60229 10/20/2017 THER/PROPH/DIAG INJ SC/IM CPT-4: 16315 10/06/2017 THER/PROPH/DIAG INJ SC/IM CPT-4: 80500 09/21/2017 TRIAMCINOLONE ACET INJ NOS CPT-4: J3301 09/15/2017 THER/PROPH/DIAG INJ SC/IM CPT-4: 73918 09/07/2017 THER/PROPH/DIAG INJ SC/IM CPT-4: 25122 08/24/2017 THER/PROPH/DIAG INJ SC/IM CPT-4: 61376 07/06/2017 THER/PROPH/DIAG INJ SC/IM CPT-4: 06917 06/20/2017 TRIAMCINOLONE ACET INJ NOS CPT-4: J3301 06/20/2017 PPPS, SUBSEQ VISIT CPT- 4: G0439 06/05/2017 THER/PROPH/DIAG INJ SC/IM CPT-4: 72309 06/05/2017 THER/PROPH/DIAG INJ SC/IM CPT-4: 66880 05/25/2017 VITAMIN B12 INJECTION CPT- 4: J3420 05/25/2017 THER/PROPH/DIAG INJ SC/IM CPT-4: 31425 05/16/2017 THER/PROPH/DIAG INJ SC/IM CPT-4: 24751 05/01/2017 THER/PROPH/DIAG INJ SC/IM CPT-4: 60247 04/18/2017 THER/PROPH/DIAG INJ SC/IM CPT-4: 97673 04/06/2017 ADMIN INFLUENZA VIRUS VAC CPT-4: G0008 03/22/2017 FLU VACC PRSV FREE INC ANTIG CPT-4: 83652 03/22/2017 THER/PROPH/DIAG INJ SC/IM CPT-4: 48004 03/09/2017 THER/PROPH/DIAG INJ SC/IM CPT-4: 44938 02/23/2017 THER/PROPH/DIAG INJ SC/IM CPT-4: 36028 02/09/2017 THER/PROPH/DIAG INJ SC/IM CPT-4: 16893 01/23/2017 THER/PROPH/DIAG INJ SC/IM CPT-4: 45086 01/10/2017 THER/PROPH/DIAG INJ SC/IM CPT-4: 25318 12/28/2016 THER/PROPH/DIAG INJ SC/IM CPT-4: 31130 12/14/2016 THER/PROPH/DIAG INJ SC/IM CPT-4: 54688 11/24/2016 URINALYSIS NONAUTO W/O SCOPE CPT-4: 20722 11/07/2016 THER/PROPH/DIAG INJ SC/IM CPT-4: 84234 11/07/2016 THER/PROPH/DIAG INJ SC/IM CPT-4: 00980 10/24/2016 THER/PROPH/DIAG INJ SC/IM CPT-4: 37218 09/29/2016 THER/PROPH/DIAG INJ SC/IM CPT-4: 94975 08/29/2016 THER/PROPH/DIAG INJ SC/IM CPT-4: 11352 08/04/2016 THER/PROPH/DIAG INJ SC/IM CPT-4: 69839 07/21/2016 THER/PROPH/DIAG INJ SC/IM CPT-4: 33189 07/05/2016 THER/PROPH/DIAG INJ SC/IM CPT-4: 76655 06/22/2016 URINALYSIS NONAUTO W/O SCOPE CPT-4: 86324 06/22/2016 THER/PROPH/DIAG INJ SC/IM CPT-4: 36968 06/09/2016 PPPS, SUBSEQ VISIT CPT- 4: G0439 05/30/2016 ADMIN PNEUMOCOCCAL VACCINE SNOMED CT: 73972176 CPT-4: G0009 05/25/2016 Pneumococcal Polysaccharide Vaccine, 23-Valent, Ad CPT-4: 89364 05/25/2016 THER/PROPH/DIAG INJ SC/IM CPT-4: 42041 05/25/2016 THER/PROPH/DIAG INJ SC/IM CPT-4: 11379 05/10/2016 TRIAMCINOLONE ACET INJ NOS CPT-4: J3301 04/26/2016 VITAMIN B12 INJECTION CPT- 4: J3420 04/26/2016 THER/PROPH/DIAG INJ SC/IM CPT-4: 49035 04/11/2016 THER/PROPH/DIAG INJ SC/IM CPT-4: 63215 03/31/2016 ADMIN INFLUENZA VIRUS VAC CPT-4: G0008 03/15/2016 FLU VACC 4 STEPHANIE 3 YRS PLUS IM SNOMED CT: 60211159 CPT-4: 06957 03/15/2016 THER/PROPH/DIAG INJ SC/IM CPT-4: 58316 02/25/2016 THER/PROPH/DIAG INJ SC/IM CPT-4: 62600 02/02/2016 THER/PROPH/DIAG INJ SC/IM CPT-4: 35832 01/18/2016 VITAMIN B12 INJECTION CPT- 4: J3420 12/29/2015 THER/PROPH/DIAG INJ SC/IM CPT-4: 12754 12/29/2015 THER/PROPH/DIAG INJ SC/IM CPT-4: 37660 12/08/2015 THER/PROPH/DIAG INJ SC/IM CPT-4: 66220 11/23/2015 URINALYSIS NONAUTO W/O SCOPE CPT-4: 53367 11/23/2015 THER/PROPH/DIAG INJ SC/IM CPT-4: 11833 11/11/2015 THER/PROPH/DIAG INJ SC/IM CPT-4: 41513 10/29/2015 THER/PROPH/DIAG INJ SC/IM CPT-4: 89726 10/12/2015 VITAMIN B12 INJECTION CPT- 4: J3420 10/12/2015 THER/PROPH/DIAG INJ SC/IM CPT-4: 28439 09/29/2015 THER/PROPH/DIAG INJ SC/IM CPT-4: 21469 09/17/2015 THER/PROPH/DIAG INJ SC/IM CPT-4: 89953 09/03/2015 THER/PROPH/DIAG INJ SC/IM CPT-4: 86855 08/17/2015 THER/PROPH/DIAG INJ SC/IM CPT-4: 08977 08/06/2015 THER/PROPH/DIAG INJ SC/IM CPT-4: 53913 07/22/2015 THER/PROPH/DIAG INJ SC/IM CPT-4: 20061 07/08/2015 THER/PROPH/DIAG INJ SC/IM CPT-4: 81928 06/23/2015 THER/PROPH/DIAG INJ SC/IM CPT-4: 00026 06/08/2015 THER/PROPH/DIAG INJ SC/IM CPT-4: 70130 05/27/2015 DESTRUCT PREMALG LESION CPT-4: 39881 05/19/2015 DESTRUCT PREMALG LES 2-14 CPT-4: 30244 05/19/2015 THER/PROPH/DIAG INJ SC/IM CPT-4: 36630 05/12/2015 VITAMIN B12 INJECTION CPT- 4: J3420 05/12/2015 THER/PROPH/DIAG INJ SC/IM CPT-4: 39259 04/30/2015 VITAMIN B12 INJECTION CPT- 4: J3420 04/30/2015 THER/PROPH/DIAG INJ SC/IM CPT-4: 68332 04/16/2015 THER/PROPH/DIAG INJ SC/IM CPT-4: 14901 04/02/2015 VITAMIN B12 INJECTION CPT- 4: J3420 04/02/2015 THER/PROPH/DIAG INJ SC/IM CPT-4: 82306 03/18/2015 THER/PROPH/DIAG INJ SC/IM CPT-4: 74059 03/03/2015 THER/PROPH/DIAG INJ SC/IM CPT-4: 10243 02/18/2015 THER/PROPH/DIAG INJ SC/IM CPT-4: 19916 02/04/2015 VITAMIN B12 INJECTION CPT- 4: J3420 02/04/2015 THER/PROPH/DIAG INJ SC/IM CPT-4: 42813 01/22/2015 THER/PROPH/DIAG INJ SC/IM CPT-4: 20492 01/08/2015 VITAMIN B12 INJECTION CPT- 4: J3420 01/08/2015 THER/PROPH/DIAG INJ SC/IM CPT-4: 54361 12/25/2014 VITAMIN B12 INJECTION CPT- 4: J3420 12/25/2014 THER/PROPH/DIAG INJ SC/IM CPT-4: 46418 12/10/2014 VITAMIN B12 INJECTION CPT- 4: J3420 12/10/2014 THER/PROPH/DIAG INJ SC/IM CPT-4: 36846 11/26/2014 VITAMIN B12 INJECTION CPT- 4: J3420 11/26/2014 THER/PROPH/DIAG INJ SC/IM CPT-4: 80298 11/12/2014 VITAMIN B12 INJECTION CPT- 4: J3420 11/12/2014 THER/PROPH/DIAG INJ SC/IM CPT-4: 61466 10/28/2014 Vital Signs Date Vital 09/05/2018 Blood Pressure 1: 122/70 Code: 8480-6 BMI: 27.1 Code: 11407-8 Heart Rate 1: 90 bpm Height: 5'6" SpO2: 97% Weight: 168 lbs 08/15/2018 Blood Pressure 1: 142/76 Code: 8480-6 BMI: 27.4 Code: 80496-3 Heart Rate 1: 74 bpm Height: 5'6" SpO2: 95% Temperature: 36.7 (C) / 98.1 (F) Weight: 170 lbs 05/03/2018 Blood Pressure 1: 140/70 Code: 8480-6 BMI: 26.0 Code: 62568-0 Heart Rate 1: 70 bpm Height: 5'6" SpO2: 94% Weight: 161 lbs 04/26/2018 Height: 5'6" 02/26/2018 Blood Pressure 1: 130/72 Code: 8480-6 BMI: 27.9 Code: 15437-4 Heart Rate 1: 72 bpm Height: 5'6" SpO2: 93% Weight: 173 lbs 12/12/2017 Blood Pressure 1: 126/74 Code: 8480-6 BMI: 27.4 Code: 39297-9 Heart Rate 1: 83 bpm Height: 5'6" SpO2: 98% Weight: 170 lbs 12/04/2017 Blood Pressure 1: 104/68 Code: 8480-6 BMI: 28.2 Code: 27200-0 Heart Rate 1: 85 bpm Height: 5'6" SpO2: 95% Weight: 175 lbs 11/20/2017 Blood Pressure 1: 130/68 Code: 8480-6 BMI: 28.4 Code: 03825-8 Heart Rate 1: 80 bpm Height: 5'6" SpO2: 99% Weight: 176 lbs 11/02/2017 Height: 5'6" 09/15/2017 Blood Pressure 1: 134/74 Code: 8480-6 BMI: 28.4 Code: 34013-9 Heart Rate 1: 88 bpm Height: 5'6" SpO2: 98% Weight: 176 lbs 09/07/2017 Blood Pressure 1: 124/64 Code: 8480-6 Heart Rate 1: 90 bpm Height: SpO2: 97% Weight: 08/30/2017 Blood Pressure 1: 140/76 Code: 8480-6 BMI: 28.4 Code: 18487-5 Heart Rate 1: 90 bpm Height: 5'6" SpO2: 94% Weight: 176 lbs 07/06/2017 Blood Pressure 1: 132/66 Code: 8480-6 BMI: 29.4 Code: 14345-1 Heart Rate 1: 85 bpm Height: 5'6" SpO2: 97% Weight: 182 lbs 06/20/2017 Blood Pressure 1: 134/86 Code: 8480-6 Heart Rate 1: 90 bpm Height: SpO2: 98% Weight: 06/05/2017 BMI: 29.1 Code: 92804-0 Height: 5'6" Weight: 180 lbs 05/25/2017 Blood Pressure 1: 126/76 Code: 8480-6 BMI: 29.1 Code: 96450-2 Heart Rate 1: 77 bpm Height: 5'6" SpO2: 97% Weight: 180 lbs 03/23/2017 Blood Pressure 1: 142/84 Code: 8480-6 BMI: 29.1 Code: 99195-1 Heart Rate 1: 91 bpm Height: 5'6" SpO2: 97% Weight: 180 lbs 01/23/2017 Blood Pressure 1: 150/90 Code: 8480-6 BMI: 29.9 Code: 36344-0 Heart Rate 1: 81 bpm Height: 5'6" SpO2: 97% Weight: 185 lbs 11/02/2016 Blood Pressure 1: 148/78 Code: 8480-6 BMI: 29.7 Code: 50678-3 Heart Rate 1: 87 bpm Height: 5'6" SpO2: 97% Weight: 184 lbs 09/29/2016 Blood Pressure 1: 128/78 Code: 8480-6 BMI: 29.7 Code: 56443-6 Heart Rate 1: 78 bpm Height: 5'6" SpO2: 98% Weight: 184 lbs 07/26/2016 Blood Pressure 1: 138/72 Code: 8480-6 BMI: 30.0 Code: 00889-5 Heart Rate 1: 85 bpm Height: 5'6" SpO2: 97% Weight: 186 lbs 05/30/2016 Blood Pressure 1: 132/76 Code: 8480-6 BMI: 30.0 Code: 50796-9 Heart Rate 1: 80 bpm Height: 5'6" SpO2: 98% Waist Measure (cm): 99 cm Weight: 186 lbs 05/25/2016 Blood Pressure 1: 132/76 Code: 8480-6 BMI: 30.0 Code: 60732-3 Heart Rate 1: 80 bpm Height: 5'6" SpO2: 96% Weight: 186 lbs 02/25/2016 Blood Pressure 1: 110/64 Code: 8480-6 Heart Rate 1: 82 bpm Height: SpO2: 96% Weight: 01/25/2016 Blood Pressure 1: 118/70 Code: 8480-6 BMI: 30.0 Code: 81216-0 Heart Rate 1: 78 bpm Height: 5'6" SpO2: 97% Weight: 186 lbs 11/11/2015 Blood Pressure 1: 128/82 Code: 8480-6 BMI: 29.2 Code: 16280-4 Heart Rate 1: 86 bpm Height: 5'6" SpO2: 96% Temperature: 36.4 (C) / 97.6 (F) Weight: 181 lbs 10/12/2015 Blood Pressure 1: 118/70 Code: 8480-6 BMI: 29.2 Code: 86578-7 Heart Rate 1: 81 bpm Height: 5'6" SpO2: 95% Weight: 181 lbs 09/03/2015 Blood Pressure 1: 138/78 Code: 8480-6 BMI: 29.9 Code: 07932-1 Heart Rate 1: 88 bpm Height: 5'6" SpO2: 97% Weight: 185 lbs 05/19/2015 Blood Pressure 1: 146/78 Code: 8480-6 BMI: 30.0 Code: 82236-5 Heart Rate 1: 66 bpm Height: 5'6" SpO2: 97% Weight: 186 lbs 05/12/2015 Blood Pressure 1: 120/70 Code: 8480-6 BMI: 29.9 Code: 13310-2 Heart Rate 1: 89 bpm Height: 5'6" SpO2: 95% Weight: 185 lbs 01/13/2015 Blood Pressure 1: 140/90 Code: 8480-6 BMI: 30.3 Code: 57979-9 Heart Rate 1: 84 bpm Height: 5'6" SpO2: 95% Weight: 188 lbs 12/16/2014 Blood Pressure 1: 140/82 Code: 8480-6 BMI: 29.5 Code: 72116-7 Heart Rate 1: 86 bpm Height: 5'6" [...] B12 deficiency anemias[ICD10: D51.8] Yarely Vega MD, [facility] CPT-4: 23553 09/05/2018 [id number] EST. PATIENT, LEVEL IV Diagnosis: Acute bronchitis due to other specified organisms[ICD10: J20.8] Diagnosis: Cough[ICD10: R05] Diagnosis: 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 factor deficiency[ICD10: D51.0] Brianna Vega MD, [facility] CPT-4: 08132 08/15/2018 ([id number]) 07796 EST. PATIENT, LEVEL IV Diagnosis: Essential (primary) hypertension[ICD10: I10] Diagnosis: Type 2 diabetes mellitus without complications[ICD10: E11.9] Yarely Vega MD, [facility] CPT-4: 22929 05/03/2018 ([id number]) 31114 EST. PATIENT, LEVEL III Diagnosis: Pain in left shoulder[ICD10: M25.512] Diagnosis: Pain in right shoulder[ICD10: M25.511] [facility] CPT-4: 12497 02/26/2018 ([id number]) 63800 EST. PATIENT, LEVEL III Diagnosis: Nausea[ICD10: R11.0] Diagnosis: Cough[ICD10: R05] Diagnosis: 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 factor deficiency[ICD10: D51.0] Janet Vega MD, [facility] CPT-4: 82909 12/12/2017 ([id number]) 27764 EST. PATIENT, LEVEL IV Diagnosis: Acute bronchitis due to Hemophilus influenzae[ICD10: J20.1] Diagnosis: Cough[ICD10: R05] Yarely Vega MD, [facility] CPT-4: 00521 12/04/2017 ([id number]) 62593 EST. PATIENT, LEVEL IV Diagnosis: Essential (primary) hypertension[ICD10: I10] Diagnosis: Cough[ICD10: R05] Diagnosis: Chronic atrial fibrillation[ICD10: I48.2] Yarely Vega MD, [facility] CPT-4: 03834 11/20/2017 ([id number]) 78031 EST. PATIENT, LEVEL III Diagnosis: Cough[ICD10: R05] Diagnosis: Acute upper respiratory infection, unspecified[ICD10: J06.9] Janet Vega MD, [facility] CPT-4: 12269 09/15/2017 07711 EST. PATIENT, LEVEL III Diagnosis: Laceration without foreign body of right forearm, initial encounter[ICD10: S51.811A] Diagnosis: Other vitamin B12 deficiency anemias[ICD10: D51.8] Brianna Vega MD, [facility] CPT-4: 06665 09/07/2017 ([id number]) 76456 EST. PATIENT, LEVEL IV Diagnosis: Chronic atrial fibrillation[ICD10: I48.2] Diagnosis: Other allergic rhinitis[ICD10: J30.89] Diagnosis: Encounter for therapeutic drug level monitoring[ICD10: Z51.81] Yarely Vega MD, [facility] CPT-4: 37772 08/30/2017 ([id number]) 19189 EST. PATIENT, LEVEL IV Diagnosis: Atrophy of thyroid (acquired)[ICD10: E03.4] Diagnosis: Cough[ICD10: R05] Diagnosis: Laceration without foreign body of left forearm, initial encounter[ICD10: S51.812A] Diagnosis: Candidiasis of skin and nail[ICD10: B37.2] Diagnosis: Other vitamin B12 deficiency anemias[ICD10: D51.8] Diagnosis: Slow transit constipation[ICD10: K59.01] Yarely Vega MD, [facility] CPT-4: 98892 07/06/2017 [id number] EST. PATIENT, LEVEL III Diagnosis: Other vitamin B12 deficiency anemias[ICD10: D51.8] Diagnosis: Acute laryngopharyngitis[ICD10: J06.0] Diagnosis: Other allergic rhinitis[ICD10: J30.89] Brianna Vega MD, [facility] CPT- 4: 90700 06/20/2017 ([id number]) 82952 EST. PATIENT, LEVEL IV Diagnosis: Essential (primary) hypertension[ICD10: I10] Diagnosis: Chronic atrial fibrillation[ICD10: I48.2] Diagnosis: Atrophy of thyroid (acquired)[ICD10: E03.4] Diagnosis: 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 factor deficiency[ICD10: D51.0] [facility] CPT-4: 21818 05/25/2017 ([id number]) 24645 EST. PATIENT, LEVEL IV Diagnosis: Type 2 diabetes mellitus without complications[ICD10: E11.9] Diagnosis: Atrophy of thyroid (acquired)[ICD10: E03.4] Diagnosis: Chest pain on breathing[ICD10: R07.1] Diagnosis: Chondrocostal junction syndrome [Tietze][ICD10: M94.0] Diagnosis: Other fatigue[ICD10: R53.83] [facility] CPT-4: 98056 03/23/2017 ([id number]) 59543 EST. PATIENT, LEVEL IV Diagnosis: Type 2 diabetes mellitus without complications[ICD10: E11.9] Diagnosis: Essential (primary) hypertension[ICD10: I10] Diagnosis: Headache[ICD10: R51] Diagnosis: Atrophy of thyroid (acquired)[ICD10: E03.4] Diagnosis: Vitamin B12 deficiency anemia, unspecified[ICD10: D51.9] [facility] CPT-4: 59790 01/23/2017 [id number] EST. PATIENT, LEVEL III Diagnosis: Low back pain[ICD10: M54.5] Diagnosis: Pain in thoracic spine[ICD10: M54.6] Brianna Vega MD, [facility] CPT- 4: 87516 11/02/2016 ([id number]) 17993 EST. PATIENT, LEVEL IV Diagnosis: Essential (primary) hypertension[ICD10: I10] Diagnosis: Other vitamin B12 deficiency anemias[ICD10: D51.8] Diagnosis: Generalized abdominal pain[ICD10: R10.84] Yarely Vega MD, [facility] CPT-4: 10757 09/29/2016 ([id number]) 71466 EST. PATIENT, LEVEL IV Diagnosis: Essential (primary) hypertension[ICD10: I10] Yarely Vega MD, [facility] CPT-4: 54424 07/26/2016 ([id number]) 67800 EST. PATIENT, LEVEL IV Diagnosis: Benign lipomatous neoplasm of skin and subcutaneous tissue of right leg[ICD10: D17.23] Diagnosis: Pain in right ankle and joints of right foot[ICD10: M25.571] Diagnosis: Encounter for immunization[ICD10: Z23] Diagnosis: Vitamin B12 deficiency anemia, unspecified[ICD10: D51.9] Yarely Vega MD, [facility] CPT-4: 65308 05/25/2016 [id number] EST. PATIENT, LEVEL III Diagnosis: Other chest pain[ICD10: R07.89] Diagnosis: Other vitamin B12 deficiency anemias[ICD10: D51.8] Brianna Vega MD, [facility] CPT-4: 11865 02/25/2016 ([id number]) 05315 EST. 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 PATIENT, LEVEL III Diagnosis: Other vitamin B12 deficiency anemias[ICD10: D51.8] Diagnosis: Acute nasopharyngitis [common cold][ICD10: J00] Diagnosis: Other allergic rhinitis[ICD10: J30.89] Brianna Vega MD, [facility] CPT- 4: 83660 11/11/2015 ([id number]) 86611 EST. PATIENT, LEVEL IV Diagnosis: Essential tremor[ICD10: G25.0] Diagnosis: Chronic fatigue, unspecified[ICD10: R53.82] Diagnosis: Other hypersomnia[ICD10: G47.19] Diagnosis: Essential (primary) hypertension[ICD10: I10] Yarely Vega MD, [facility] CPT-4: 53449 10/12/2015 ([id number]) 94366 EST. PATIENT, LEVEL IV Diagnosis: Essential (primary) hypertension[ICD10: I10] Diagnosis: Chronic atrial fibrillation[ICD10: I48.2] Diagnosis: Abnormal levels of other serum enzymes[ICD10: R74.8] Diagnosis: Type 2 diabetes mellitus without complications[ICD10: E11.9] Diagnosis: Vitamin B12 deficiency anemia, unspecified[ICD10: D51.9] Yarely Vega MD, [facility] CPT-4: 96556 09/03/2015 ([id number]) 56860 EST. PATIENT, LEVEL III Diagnosis: Nausea[ICD10: R11.0] Diagnosis: Essential tremor[ICD10: G25.0] Diagnosis: Actinic keratosis[ICD10: L57.0] Yarely Vega MD, [facility] CPT-4: 19422 05/19/2015 ([id number]) 98097 EST. PATIENT, LEVEL IV Diagnosis: Vitamin B12 deficiency anemia, unspecified[ICD10: D51.9] Diagnosis: Chronic atrial fibrillation[ICD10: I48.2] Diagnosis: Headache[ICD10: R51] Diagnosis: Chronic fatigue, unspecified[ICD10: R53.82] Diagnosis: Cervicalgia[ICD10: M54.2] Yarely Vega MD, [facility] CPT-4: 19587 05/12/2015 ([id number]) 19317 EST. PATIENT, LEVEL IV Diagnosis: ESSENTIAL HYPERTENSION[ICD9: 401.9] Diagnosis: Afib[ICD9: 427.31] Diagnosis: Anxiety[ICD9: 300.00] Diagnosis: Insomnia[ICD9: 780.52] Yarely Vega MD, [facility] CPT-4: 99261 01/13/2015 ([id number]) OFFICE VISIT, NEW - LEVEL 4 Diagnosis: Hypothyroidism[ICD9: 244.9] Diagnosis: DIABETES TYPE II[ICD9: 250.00] Diagnosis: ESSENTIAL HYPERTENSION[ICD9: 401.9] Diagnosis: Afib[ICD9: 427.31] Diagnosis: Anxiety[ICD9: 300.00] Diagnosis: B12 deficiency[ICD9: 266.2] [facility] CPT-4: 27055 12/16/2014 Plan of Care Planned Activity Notes Codes Status Date Patient Education: Patient Medication Summary Completed 09/11/2018 [...] control. 09/05/2018 App[facility]ment[phone] ([facility] min) Moderate 09/05/2018 Patient Education: Patient [...] Completed 06/20/2018 Appointment: [phone] [facility] (30 min) Complex 06/07/2018 Appointment: Injection 06/06/2018 Patient Education: Patient Medication Summary Completed 06/06/2018 Appointment: [phone] [facility] (15 min) Moderate 05/31/2018 Appointment: Injection 05/24/2018 [...] flonase 05/03/2018 Appointment: [phone] [facility] [place] (15 min) Moderate 05/03/2018 Patient Education: [...] intervention. 02/26/2018 Appointment: Yarely Vega WPtel: [phone] [facility] (15 min) Moderate 02/26/2018 Patient Education: Patient Medication Summary Completed 02/26/2018 Care Plan: Referral Order SNOMED-CT : [id number] Pending 02/26/2018 Appointment: Injection 02/08/2018 Patient Education: Patient Medication Summary Completed 02/08/2018 Appointment: Injection 01/24/2018 Patient Education: Patient Medication Summary Completed 01/24/2018 Appointment: Injection 01/10/2018 Patient Education: Patient Medication Summary Completed 01/10/2018 Appointment: Injection 12/27/2017 Patient Education: Patient Medication Summary Completed 12/27/2017 Appointment: Yarely Vega WPtel: [phone] [facility] (15 min) Moderate 12/26/2017 Visit Plan: Ldxuts-xyhbfukrk-cdpzpusw protonix-follow up with Dr Navarro as scheduled Cough-recent bronchitis-symptoms improved-call if symptoms do not completely resolve 12/12/2017 Appointment: Janet Fam WPtel: [phone] [place] (15 min) Moderate 12/12/2017 Patient Education: Patient Medication Summary Completed 12/12/2017 Visit Plan: Bronchitis - acute case of bronchitis identified. Pt has been given antibiotics, breathing treatments as appropriate, and pt has been instructed to call if symptoms are not improved, or if symptoms acutely worsen. Cough - rx for antibiotics as well as cough medication. 12/04/2017 Appointment: Yarely Vega WPtel: [phone] [facility] [place] (15 min) Moderate 12/04/2017 Patient Education: [...] Fatigue/malaise -Pt was advsied to ask the Service Writer Advisor the following: ask the heart doctor if [...] becoming uncontrolled. 11/20/2017 Appointment: Yarely Vega WPtel: [facility] (15 min) Moderate 11/20/2017 Patient Education: Patient [...] any worse. 09/15/2017 Appointment: Janet Fam WPtel: [facility]9 [phone] [place] (15 min) Moderate 09/15/2017 Patient Education: Patient Medication Summary Completed 09/15/2017 Appointment: Yarely Vega WPtel: [facility] [place] (15 min) Moderate 09/11/2017 Visit Plan: Skin tear and Cellulitis - The patient was instructed in appropriate wound care. The patient was instructed to use the antibiotic ointment as per RX. The patient is to call for any change in symptoms, increase in size of the lesion, increase in pain, worsening redness, warmth, discharge. 09/07/2017 Appointment: [facility] Oto[facility]el[phone] (10 min) Simple 09/07/2017 Patient Education: Patient Medication Summary Completed 09/07/2017 Visit Plan: Lipoma - left ankle - talk to dr. barnes about possible surgery/laser for treatment of lipoma. Fatigue/malaise -Pt was advsied to ask the Service Writer Advisor the following: ask the heart doctor if there is an alternative to the amiodarone - you may be having side effects from the medication causing you to have pruritus (itching) and feeling like you have body aches, muscle aches, joint pain, fatigue, weight loss (decreased appetite), and pneumonia like symptoms. Congestion - claritin 10mg daily. 08/30/2017 Appointment: Yarely Vega WPtel: [phone] [facility] (15 min) Moderate 08/30/2017 Patient Education: Patient Medication Summary Completed 08/30/2017 Appointment: Injection 08/24/2017 Appointment: [phone] [facility] (15 min) Moderate 08/24/2017 Patient Education: Patient [...] on this regimen. Skin tear - nakita razo, arely, pt to change every 2 days and call if not resolving. Yeast infection of gluteus - rx for nystatin powder. Cough improving - continue with current treatment plan and mucinex 07/06/2017 [place] [phone] (15 min) Moderate 07/06/2017 Patient Education: Patient [...] spray. 06/20/2017 Appointment: Bri[facility] Otoole [facility]Ptel: [phone] [facility] (15 min) Moderate 06/20/2017 Patient Education: Patient [...] Bucky 06/05/2017 Appointment: Brianna Otoole WPtel: [phone] [facility] [facility] - Annual Wellness Visit 06/05/2017 Patient [...] control. 05/25/2017 Appointment: [phone] [facility] (15 min) Moderate 05/25/2017 Patient Education: Patient [...] wall. Fatigue - pt to discuss with Service Writer Advisor about the possibility of amiodarone causing her fatigue/malaise. 03/23/2017 Appointment: [phone] [facility] [place] (15 min) Moderate 03/23/2017 Patient Education: [...] twice daily. 01/23/2017 Appointment: Yarely Vega WPtel: [phone] [facility] (15 min) Moderate 01/23/2017 Patient Education: Patient [...] improve. 11/02/2016 Appointment: Brianna Otoole WPtel: [phone] [facility] (15 min) Moderate 11/02/2016 Patient Education: Patient [...] carafate 09/29/2016 Appointment: Yarely Vega WPtel: [phone] [facility] [place] (15 min) Moderate 09/29/2016 Patient Education: Patient Medication Summary Completed 09/29/2016 Appointment: Yarely Vega WPtel: [phone] [facility] [place] (15 min) Moderate 09/27/2016 Appointment: [facility]: [phone] [facility] [place] (15 min) Moderate 09/20/2016 Appointment: Yarely [facility]el: [phone] [facility] [place] (15 min) Moderate 09/20/2016 Patient Education: Patient Medication Summary Completed 09/06/2016 Appointment: Y[facility]el: [phone] [facility] [place] (15 min) Moderate 08/30/2016 [...] concerns. 07/26/2016 Appointment: Y[phone] [facility] (15 min) Moderate 07/26/2016 Patient Education: Patient [...] care surrogate. 05/30/2016 Appointment: Brianna Otoole WPtel: [phone] [facility] [facility] - Annual Wellness Visit 05/30/2016 Patient [...] bedtime 05/25/2016 Appointment: Yarely [facility]ega [facility]: [phone] [facility] (15 min) Moderate 05/25/2016 Patient Education: Patient Medication Summary Completed 05/25/2016 Patient Education: Obesity Completed 05/25/2016 Care Plan: Referral Order SNOMED-CT : [id number] Pending 05/25/2016 Appointment: Injection 05/10/2016 Patient Education: Patient Medication Summary Completed 05/10/2016 Appointment: Injection 04/26/2016 Patient Education: Patient Medication Summary Completed 04/26/2016 Appointment: Injection 04/11/2016 Patient Education: Patient Medication Summary Completed 04/11/2016 Appointment: Injection 03/31/2016 Patient Education: Patient Medication Summary Completed 03/31/2016 Patient Education: Patient Medication Summary Completed 03/22/2016 Care Plan[facility] 16[facility]-9 Pending 03/22/2016 Appointment: Injection 03/15/2016 Patient Education: [...] concerns. 02/25/2016 Appointment: Brianna Otoole WPtel: [phone] [facility] [place] (15 min) Moderate 02/25/2016 Patient Education: [...] the patients recent sleep study - recommended [place] patient eval of pt - nocturnal [...] the patients recent sleep study - recommended [place] home patient eval of pt - nocturnal [...] case with Faiza's daughter who had left [facility]. She is interested in looking at assisted living facilities for her mom as Faiza's family is for assisted living placement sooner rather than later. 10/12/2015 Appointment: Yarely Vega WPtel: [facility] (15 min) Moderate 10/12/2015 Patient [...] Summary Completed 08/17/2015 Appointment: Yarely [facility]: [phone] [facility] (15 min) Moderate 08/11/2015 Appointment: [...] x 2 05/19/2015 Appointment: Yarely Vega [facility]Ptel: [phone] [facility] [place] (30 min) Complex 05/19/2015 Patient Education: [...] prn alprazolam. 01/13/2015 Appointment: Yarely Vega WPtel: [facility] (15 min) Moderate 01/13/2015 Patient Education: Patient [...] current medications. 12/16/2014 Appointment: Janet Fam WPtel: [facility] [place] ([place]) New Patient 12/16/2014 Patient Education: [...] case with Faiza's daughter who had left [facility]. She is interested in looking at assisted living facilities for her mom as Faiza's family is for assisted living placement sooner rather than later. . b12 injection . Skin tear and Cellulitis - The patient was instructed in appropriate wound care. The patient was instructed to use the antibiotic ointment as per RX. The patient is to call for any change in symptoms, increase in size of the lesion, increase in pain, worsening redness, warmth, discharge. decrease topamax to one pill nightly . [...] to post-nasal drainage - restart flonase . Lszmyy-sehorywfb-qmydnqnw protonix-follow up with Dr Navarro as scheduled [...] not improved, or if symptoms acutely worsen. change priolosec to bedtime to see if [...] cryotherapy of skin lesions x 2 . Low back pain- ongoing - will [...] Fatigue/malaise -Pt was advsied to ask the Service Writer Advisor the following: ask the heart doctor if [...] Fatigue/malaise -Pt was advsied to ask the Service Writer Advisor the following: ask the heart doctor if [...] follow expected course, or if any worse. increase norvasc from 5mg daily to 10mg [...] the patients recent sleep study - recommended [place] patient eval of pt - nocturnal [...] with current treatment plan and mucinex . Medicare Exam - today we discussed [...] for antibiotics as well as cough medication. talk to Heart doctor about possible amiodarone [...] wall. Fatigue - pt to discuss with Service Writer Advisor about the possibility of amiodarone causing her [...] the patients recent sleep study - recommended [place] home patient eval of pt - nocturnal oxygen study - will order - if positive oxygen concentrator with humidification. I suspect that she has the nocturnal hypoxemia due to her chronic atrial fibrillation and history of coronary artery disease with chronic systolic heart failure. johnathonatadine - generic for CLARITIN - take 10mg [...] months based on previous levels of control. womens probiotic - take one pill daily. [...]
--- OUTSIDE RECORDS SUMMARY | 2018-12-05 17:26 | XMS REPORT | CCD ---
Author Author [facility] Organization [facility] Address [address] [place] [address] Phone Care Team Providers Care Etl Manager Name Role Phone PP Unavailable CCM Unavailable Summary Purpose Interface Exchange Insurance Providers Payer name Policy type / Coverage type Covered republican ID Effective Begin Date Effective End Date WPS Medicare Part B Medicare Part B [id number] Unknown Principal Life Insurance Medicare Part B [id number] Unknown [employer] in [place] Medicare Part B [id number] Unknown Family history Brother Diagnosis Age At Onset Heart Attack Unknown Mother Diagnosis Age At Onset Hypertension Unknown kidney disease Unknown Stroke Unknown Father Diagnosis Age At Onset Arthritis Unknown Social History Social History Element Codes Description Effective Dates Employment Unknown Retired worked at [employer] 11/20/2017 Marital status Unknown Single 12/16/[address]: 3291393 Former smoker 12/16/[address]: 168597060 Never drinks alcohol 12/16/2014 Allergies, Adverse Reactions, Alerts Substance Reaction Codes Entered Date Inactivated Date Status CODEINE RxNorm: 2670 05/25/2016 No Inactive Date Active ciprofloxacin RxNorm: 26097 12/16/2014 No Inactive Date Active MORPHINE SULFATE [...] ICD-10: D51.8 Active 07/04/2016 Unknown Encounter for immunization ICD-9: V03.82 ICD-10: [...] 281.1 ICD-10: D51.8 07/04/2016 Active Encounter for immunization ICD-9: V03.82 ICD-10: [...] Fill Instructions levothyroxine 125 mcg tablet RxNorm: 565935 TAKE 1 TABLET BY MOUTH EVERY DAY 09/10/2018 03/08/2019 Active Generic For:SYNTHROID 125MCG TAB 09/10/2018 12:06:52 PM cyanocobalamin (vit B-12) 1,000 mcg/mL injection solution RxNorm: 032040 Milliliter(s) Inj 08/29/2018 08/29/2018 Inactive alprazolam 0.25 mg tablet RxNorm: 862081 1 Tablet(s) PO BID 08/21/2018 02/16/2019 Active albuterol sulfate 2.5 mg/3 mL (0.083 %) solution for nebulization RxNorm: 942683 3 Milliliter(s) INH Q6 PRN 08/15/2018 No Stop Date Active Aricept 10 mg tablet RxNorm: 697590 1 Tablet(s) PO daily 08/15/2018 08/09/2019 Active liothyronine 5 mcg tablet RxNorm: 655396 Tablet(s) TAKE 1 TABLET BY MOUTH TWICE DAILY 08/15/2018 02/10/2019 Active cyanocobalamin (vit B-12) 1,000 mcg/mL injection solution RxNorm: 437302 Milliliter(s) Inj 08/15/2018 08/15/2018 Inactive Kenalog 40 mg/mL suspension for injection RxNorm: 0752173 Milliliter(s) Inj 08/15/2018 08/15/2018 Inactive doxycycline hyclate 100 mg capsule RxNorm: 9375691 1 Capsule(s) PO BID 08/15/2018 08/24/2018 Inactive cyanocobalamin (vit B-12) 1,000 mcg/mL injection solution RxNorm: 585758 Milliliter(s) Inj 08/01/2018 08/01/2018 Inactive cyanocobalamin (vit B-12) 1,000 mcg/mL injection solution RxNorm: 711869 Milliliter(s) Inj 07/19/2018 07/19/2018 Inactive hydrocodone 5 mg-acetaminophen 325 mg tablet RxNorm: 886408 1-2 Tablet(s) PO Q6 as needed for pain 07/18/2018 08/15/2018 Inactive betamethasone valerate 0.1 % topical ointment RxNorm: 582277 1 TOP BID 07/04/2018 07/03/2018 Inactive applying to skin under nose x 10 days cyanocobalamin (vit B-12) 1,000 mcg/mL injection solution RxNorm: 565772 Milliliter(s) Inj 07/04/2018 07/04/2018 Inactive betamethasone valerate 0.1 % topical ointment RxNorm: 586411 1 TOP BID 07/04/2018 07/13/2018 Inactive applying to skin under nose x 10 days Aricept 10 mg tablet RxNorm: 013881 Tablet(s) 1 Tablet(s) PO daily 06/25/2018 08/14/2018 Inactive Flonase Allergy Relief 50 mcg/actuation nasal spray,suspension RxNorm: 0226052 Eldridge 1 Eldridge NASAL BID 06/20/2018 10/17/2018 Active cyanocobalamin (vit B-12) 1,000 mcg/mL injection solution RxNorm: 468738 Milliliter(s) Inj 06/20/2018 06/20/2018 Inactive hydrocodone 5 mg-acetaminophen 325 mg tablet RxNorm: 275680 1-2 Tablet(s) PO Q6 as needed for pain 06/20/2018 07/17/2018 Inactive cyanocobalamin (vit B-12) 1,000 mcg/mL injection solution RxNorm: 043667 Milliliter(s) Inj 06/06/2018 06/06/2018 Inactive alprazolam 0.25 mg tablet RxNorm: 106024 1 Tablet(s) PO BID 05/25/2018 08/21/2018 Inactive hydrocodone 5 mg-acetaminophen 325 mg tablet RxNorm: 594878 1-2 Tablet(s) PO Q6 as needed for pain 05/24/2018 06/19/2018 Inactive cyanocobalamin (vit B-12) 1,000 mcg/mL injection solution RxNorm: 885238 Milliliter(s) Inj 05/24/2018 05/24/2018 Inactive cyanocobalamin (vit B-12) 1,000 mcg/mL injection solution RxNorm: 062346 Milliliter(s) Inj 05/09/2018 05/09/2018 Inactive Claritin 10 mg tablet RxNorm: 483178 TAKE 1 TABLET BY MOUTH ONCE DAILY 05/08/2018 05/02/2019 Active Generic For:CLARITIN 10MG 05/07/2018 9:13:47 AM cyanocobalamin (vit B-12) 1,000 mcg/mL injection solution RxNorm: 527767 INJECT ONE 1 ML EVERY TWO WEEKS 05/03/2018 04/03/2019 Active 05/03/2018 9:13:42 AM Mobic 15 mg tablet RxNorm: 292524 Tablet(s) 1 Tablet(s) PO daily 04/26/2018 04/20/2019 Active buspirone 15 mg tablet RxNorm: 618626 Tablet(s) TAKE 1 TABLET BY MOUTH TWICE DAILY 04/26/2018 04/20/2019 Active Generic For:BUSPAR 15MG 05/31/2017 9:19:20 AM Norvasc 5 mg tablet RxNorm: 827769 Tablet(s) 1 Tablet(s) PO daily 04/26/2018 04/20/2019 Active cyanocobalamin (vit B-12) 1,000 mcg/mL injection solution RxNorm: 416882 Milliliter(s) Inj 04/26/2018 04/26/2018 Inactive hydrocodone 5 mg-acetaminophen 325 mg tablet RxNorm: 872809 1-2 Tablet(s) PO Q6 as needed for pain 04/25/2018 05/23/2018 Inactive cyanocobalamin (vit B-12) 1,000 mcg/mL injection solution RxNorm: 948757 Milliliter(s) Inj 04/12/2018 04/12/2018 Inactive Topamax 25 mg tablet RxNorm: 600784 1 Tablet(s) PO BID 04/09/2018 05/02/2018 Inactive Generic For:TOPAMAX 25MG 12/06/2016 9:15:13 AM Zoloft 50 mg tablet RxNorm: 185812 TAKE 1 TABLET BY MOUTH ONCE DAILY 04/04/2018 12/29/2018 Active Generic For:ZOLOFT 50MG 04/04/2018 9:13:25 AM cyanocobalamin (vit B-12) 1,000 mcg/mL injection solution RxNorm: 320769 Milliliter(s) Inj 03/30/2018 03/30/2018 Inactive levothyroxine 125 mcg tablet RxNorm: 733099 TAKE 1 TABLET BY MOUTH EVERY DAY 03/26/2018 09/09/2018 Inactive Generic For:SYNTHROID 125MCG TAB 03/26/2018 9:15:59 AM liothyronine 5 mcg tablet RxNorm: 892496 TAKE 1 TABLET BY MOUTH TWICE DAILY 03/26/2018 08/14/2018 Inactive Generic For:CYTOMEL 5MCG 03/26/2018 9:15:54 AM hydrocodone 5 mg-acetaminophen 325 mg tablet RxNorm: 932251 1-2 Tablet(s) PO Q6 as needed for pain 03/19/2018 04/17/2018 Inactive cyanocobalamin (vit B-12) 1,000 mcg/mL injection solution RxNorm: 489725 Milliliter(s) Inj 03/16/2018 03/16/2018 Inactive Flonase Allergy Relief 50 mcg/actuation nasal spray,suspension RxNorm: 4992828 1 [place]ridge NASAL BID 03/05/2018 06/19/2018 Inactive cyanocobalamin (vit B-12) 1,000 mcg/mL injection solution RxNorm: 291965 Milliliter(s) Inj 03/02/2018 03/02/2018 Inactive alprazolam 0.25 mg tablet RxNorm: 775063 1 Tablet(s) PO BID 02/28/2018 05/27/2018 Inactive cyanocobalamin (vit B-12) 1,000 mcg/mL injection solution RxNorm: 711880 Milliliter(s) Inj 02/08/2018 02/08/2018 Inactive cyanocobalamin (vit B-12) 1,000 mcg/mL injection solution RxNorm: 241479 Milliliter(s) Inj 01/24/2018 01/24/2018 Inactive albuterol sulfate 2.5 mg/3 mL (0.083 %) solution for nebulization RxNorm: 296391 3 Milliliter(s) INH Q6 PRN 01/24/2018 05/02/2018 Inactive Claritin 10 mg tablet RxNorm: 452881 1 Tablet(s) PO daily 01/15/2018 05/07/2018 Inactive cyanocobalamin (vit B-12) 1,000 mcg/mL injection solution RxNorm: 555601 Milliliter(s) Inj 01/10/2018 01/10/2018 Inactive hydrocodone 5 mg-acetaminophen 325 mg tablet RxNorm: 570055 1-2 Tablet(s) PO Q6 as needed for pain 01/09/2018 02/07/2018 Inactive cyanocobalamin (vit B-12) 1,000 mcg/mL injection solution RxNorm: 549043 Milliliter(s) Inj 12/27/2017 12/27/2017 Inactive cyanocobalamin (vit B-12) 1,000 mcg/mL injection solution RxNorm: 454808 1 Milliliter(s) Inj 12/12/2017 12/12/2017 Inactive Zofran ODT 4 mg disintegrating tablet RxNorm: 730756 1 Tablet(s) PO TID as needed 12/08/2017 12/09/2017 Inactive hydrocodone 2.5 mg-guaifenesin 200 mg/5 mL oral solution RxNorm: 752442 5 Milliliter(s) PO 12/04/2017 05/06/2018 Inactive doxycycline hyclate 100 mg capsule RxNorm: 5803886 1 Capsule(s) PO BID 12/04/2017 12/13/2017 Inactive cyanocobalamin (vit B-12) 1,000 mcg/mL injection solution RxNorm: 583520 Milliliter(s) Inj 12/01/2017 12/01/2017 Inactive Flonase Allergy Relief 50 mcg/actuation nasal spray,suspension RxNorm: 8102233 1 [place]ridge NASAL BID 11/20/2017 2018 Inactive cyanocobalamin (vit B-12) 1,000 mcg/mL injection solution RxNorm: 501918 1 Milliliter(s) Inj 11/17/2017 11/17/2017 Inactive hydrocodone 5 mg-acetaminophen 325 mg tablet RxNorm: 069113 1-2 Tablet(s) PO Q6 as needed for pain 11/16/2017 12/15/2017 Inactive cyanocobalamin (vit B-12) 1,000 mcg/mL injection solution RxNorm: 759340 1 Milliliter(s) Inj 11/02/2017 11/02/2017 Inactive hydrocodone 5 mg-acetaminophen 325 mg tablet RxNorm: 071348 1-2 Tablet(s) PO Q6 as needed for pain 10/25/2017 11/15/2017 Inactive Claritin 10 mg tablet RxNorm: 306195 1 Tablet(s) PO daily 10/25/2017 11/19/2017 Inactive albuterol sulfate 2.5 mg/3 mL (0.083 %) solution for nebulization RxNorm: 230285 3 Milliliter(s) INH Q6 PRN 10/25/2017 01/23/2018 Inactive Claritin 10 mg tablet RxNorm: 460030 1 Tablet(s) PO daily 10/25/2017 10/24/2017 Inactive cyanocobalamin (vit B-12) 1,000 mcg/mL injection solution RxNorm: 054132 1 Milliliter(s) Inj 10/20/2017 10/20/2017 Inactive Zoloft 50 mg tablet RxNorm: 391534 TAKE 1 TABLET BY MOUTH ONCE DAILY 10/13/2017 04/03/2018 Inactive Generic For:ZOLOFT 50MG 10/13/2017 8:59:44 AM cyanocobalamin (vit B-12) 1,000 mcg/mL injection solution RxNorm: 282319 Milliliter(s) Inj 10/06/2017 10/06/2017 Inactive liothyronine 5 mcg tablet RxNorm: 617210 TAKE 1 TABLET BY MOUTH TWICE DAILY 10/03/2017 03/25/2018 Inactive Generic For:CYTOMEL 5MCG 10/03/2017 9:13:38 AM cyanocobalamin (vit B-12) 1,000 mcg/mL injection solution RxNorm: 129911 Milliliter(s) Inj 09/21/2017 09/21/2017 Inactive albuterol sulfate 2.5 mg/3 mL (0.083 %) solution for nebulization RxNorm: 843842 3 Milliliter(s) INH Q6 PRN 09/21/2017 10/24/2017 Inactive hydrocodone 5 mg-acetaminophen 325 mg tablet RxNorm: 200188 1-2 Tablet(s) PO Q6 as needed for pain 09/21/2017 10/20/2017 Inactive Kenalog 40 mg/mL suspension for injection RxNorm: 0503105 Milliliter(s) Inj 09/15/2017 09/15/2017 Inactive Keflex 500 mg capsule RxNorm: 012999 1 Capsule(s) PO TID 09/07/2017 09/16/2017 Inactive Please deliver to patient cyanocobalamin (vit B-12) 1,000 mcg/mL injection solution RxNorm: 409785 Milliliter(s) Inj 09/07/2017 09/07/2017 Inactive alprazolam 0.25 mg tablet RxNorm: 555146 1 Tablet(s) PO BID 09/06/2017 02/27/2018 Inactive Aricept 10 mg tablet RxNorm: 903992 1 Tablet(s) PO daily 09/06/2017 06/24/2018 Inactive hydrocodone 5 mg-acetaminophen 325 mg tablet RxNorm: 939042 1-2 Tablet(s) PO Q6 as needed for pain 08/24/2017 09/20/2017 Inactive cyanocobalamin (vit B-12) 1,000 mcg/mL injection solution RxNorm: 150126 Milliliter(s) Inj 08/24/2017 08/24/2017 Inactive Norvasc 5 mg tablet RxNorm: 386840 1 Tablet(s) PO daily 08/18/2017 04/25/2018 Inactive nystatin 100,000 unit/gram topical powder RxNorm: 351411 1 Gram(s) TOP QID 08/17/2017 08/26/2017 Inactive hydrocodone 5 mg-acetaminophen 325 mg tablet RxNorm: 352678 1-2 Tablet(s) PO Q6 as needed for pain 07/25/2017 08/23/2017 Inactive Tamiflu 75 mg capsule RxNorm: 255816 1 Capsule(s) PO BID 07/24/2017 12/11/2017 Inactive nystatin 100,000 unit/gram topical powder RxNorm: 424009 1 Gram(s) TOP QID 07/14/2017 07/22/2017 Inactive levothyroxine 125 mcg tablet RxNorm: 992436 Tablet(s) 1 Tablet(s) PO daily 07/10/2017 01/05/2018 Inactive nystatin 100,000 unit/gram topical powder RxNorm: 753667 1 Gram(s) TOP QID 07/06/2017 07/13/2017 Inactive cyanocobalamin (vit B-12) 1,000 mcg/mL injection solution RxNorm: 515585 Milliliter(s) Inj 07/06/2017 07/06/2017 Inactive Kenalog 40 mg/mL suspension for injection RxNorm: 6963317 1 Milliliter(s) Inj 06/20/2017 06/20/2017 Inactive doxycycline hyclate 100 mg capsule RxNorm: 9455956 1 Capsule(s) PO BID 06/20/2017 06/26/2017 Inactive cyanocobalamin (vit B-12) 1,000 mcg/mL injection solution RxNorm: 760969 Milliliter(s) Inj 06/20/2017 06/20/2017 Inactive Keflex 500 mg capsule RxNorm: 516079 1 Capsule(s) PO TID 06/14/2017 06/23/2017 Inactive Please deliver to patient Mobic 15 mg tablet RxNorm: 626254 1 Tablet(s) PO daily 06/14/2017 04/25/2018 Inactive cyanocobalamin (vit B-12) 1,000 mcg/mL injection solution RxNorm: 264425 Milliliter(s) Inj 06/05/2017 06/05/2017 Inactive buspirone 15 mg tablet RxNorm: 876401 TAKE 1 TABLET BY MOUTH TWICE DAILY 05/31/2017 04/25/2018 Inactive Generic For:BUSPAR 15MG 05/31/2017 9:19:20 AM cyanocobalamin (vit B-12) 1,000 mcg/mL injection solution RxNorm: 698833 Milliliter(s) Inj 05/25/2017 05/25/2017 Inactive hydrocodone 5 mg-acetaminophen 325 mg tablet RxNorm: 705220 1-2 Tablet(s) PO Q6 as needed for pain 05/25/2017 06/23/2017 Inactive amiodarone 200 mg tablet RxNorm: 655154 1/2 Tablet(s) PO daily 05/22/2017 No Stop Date Active cardiology decreased to 100mg daily cyanocobalamin (vit B-12) 1,000 mcg/mL injection solution RxNorm: 859071 Milliliter(s) Inj 05/16/2017 05/16/2017 Inactive Zofran ODT 4 mg disintegrating tablet RxNorm: 048787 1 Tablet(s) PO TID as needed 05/03/2017 05/04/2017 Inactive hydrocodone 5 mg-acetaminophen 325 mg tablet RxNorm: 587748 1-2 Tablet(s) PO Q6 as needed for pain 05/01/2017 05/05/2017 Inactive cyanocobalamin (vit B-12) 1,000 mcg/mL injection solution RxNorm: 209073 1 Milliliter(s) Inj 05/01/2017 05/01/2017 Inactive cyanocobalamin (vit B-12) 1,000 mcg/mL injection solution RxNorm: 622016 INJECT ONE 1 ML EVERY TWO WEEKS 04/26/2017 12/04/2018 Active 04/26/2017 9:08:52 AM Zoloft 50 mg tablet RxNorm: 618240 Tablet(s) TAKE 1 TABLET BY MOUTH DAILY 04/25/2017 10/12/2017 Inactive Generic For:ZOLOFT 50MG cyanocobalamin (vit B-12) 1,000 mcg/mL injection solution RxNorm: 176555 Milliliter(s) Inj 04/18/2017 04/18/2017 Inactive liothyronine 5 mcg tablet RxNorm: 060343 1 Tablet(s) PO BID 04/13/2017 10/02/2017 Inactive cyanocobalamin (vit B-12) 1,000 mcg/mL injection solution RxNorm: 016336 Milliliter(s) Inj 04/06/2017 04/06/2017 Inactive hydrocodone 5 mg-acetaminophen 325 mg tablet RxNorm: 593697 1-2 Tablet(s) PO Q6 as needed for pain 04/06/2017 04/10/2017 Inactive cyanocobalamin (vit B-12) 1,000 mcg/mL injection solution RxNorm: 801203 Milliliter(s) Inj 03/22/2017 03/22/2017 Inactive alprazolam 0.25 mg tablet RxNorm: 830853 1 Tablet(s) PO BID 03/17/2017 12/11/2017 Inactive alprazolam 0.25 mg tablet RxNorm: 444439 1 Tablet(s) PO BID 03/16/2017 09/05/2017 Inactive hydrocodone 5 mg-acetaminophen 325 mg tablet RxNorm: 128051 1-2 Tablet(s) PO Q6 as needed for pain 03/09/2017 03/13/2017 Inactive cyanocobalamin (vit B-12) 1,000 mcg/mL injection solution RxNorm: 705846 Milliliter(s) Inj 03/09/2017 03/09/2017 Inactive cyanocobalamin (vit B-12) 1,000 mcg/mL injection solution RxNorm: 998728 Milliliter(s) Inj 02/23/2017 02/23/2017 Inactive cyanocobalamin (vit B-12) 1,000 mcg/mL injection solution RxNorm: 224260 Milliliter(s) Inj 02/09/2017 02/09/2017 Inactive hydrocodone 5 mg-acetaminophen 325 mg tablet RxNorm: 310723 1-2 Tablet(s) PO Q6 as needed for pain 02/08/2017 02/12/2017 Inactive Topamax 25 mg tablet RxNorm: 582389 1 Tablet(s) PO BID 01/23/2017 05/22/2017 Inactive Generic For:TOPAMAX 25MG 12/06/2016 9:15:13 AM cyanocobalamin (vit B-12) 1,000 mcg/mL injection solution RxNorm: 035122 Milliliter(s) Inj 01/23/2017 01/23/2017 Inactive cyanocobalamin (vit B-12) 1,000 mcg/mL injection solution RxNorm: 248856 Milliliter(s) Inj 01/10/2017 01/10/2017 Inactive hydrocodone 5 mg-acetaminophen 325 mg tablet RxNorm: 563046 1-2 Tablet(s) PO Q6 as needed for pain 01/09/2017 01/13/2017 Inactive cyanocobalamin (vit B-12) 1,000 mcg/mL injection solution RxNorm: 720343 1 Milliliter(s) Inj 12/28/2016 12/28/2016 Inactive cyanocobalamin (vit B-12) 1,000 mcg/mL injection solution RxNorm: 961859 Milliliter(s) Inj 12/14/2016 12/14/2016 Inactive buspirone 15 mg tablet RxNorm: 317172 1 Tablet(s) PO BID 12/12/2016 05/30/2017 Inactive hydrocodone 5 mg-acetaminophen 325 mg tablet RxNorm: 395193 1-2 Tablet(s) PO Q6 as needed for pain 12/08/2016 12/12/2016 Inactive Topamax 25 mg tablet RxNorm: 260174 TAKE 1 TABLET BY MOUTH EVERY DAY AT BEDTIME 12/06/2016 01/22/2017 Inactive Generic For:TOPAMAX 25MG 12/06/2016 9:15:13 AM Lac-Hydrin Five 5 % lotion RxNorm: 337422 1 Gram(s) TOP daily 12/02/2016 05/02/2018 Inactive cyanocobalamin (vit B-12) 1,000 mcg/mL injection solution RxNorm: 812395 Milliliter(s) Inj 11/24/2016 11/24/2016 Inactive Ceftin 500 mg tablet RxNorm: 705331 1 Tablet(s) PO BID 11/11/2016 06/13/2017 Inactive Cipro 500 mg tablet RxNorm: 456540 1 Tablet(s) PO BID 11/11/2016 11/10/2016 Inactive Cipro 500 mg tablet RxNorm: 944879 1 Tablet(s) PO BID 11/11/2016 11/11/2016 Inactive cyanocobalamin (vit B-12) 1,000 mcg/mL injection solution RxNorm: 020204 1 Milliliter(s) Inj 11/07/2016 11/07/2016 Inactive hydrocodone 5 mg-acetaminophen 325 mg tablet RxNorm: 881862 1-2 Tablet(s) PO Q6 as needed for pain 11/02/2016 11/06/2016 Inactive cyanocobalamin (vit B-12) 1,000 mcg/mL injection solution RxNorm: 849714 Milliliter(s) Inj 10/24/2016 10/24/2016 Inactive levothyroxine 125 mcg tablet RxNorm: 350915 Tablet(s) 1 Tablet(s) PO daily 10/24/2016 04/21/2017 Inactive liothyronine 5 mcg tablet RxNorm: 790641 1 Tablet(s) PO BID 10/24/2016 04/12/2017 Inactive hydrocodone 5 mg-acetaminophen 325 mg tablet RxNorm: 428386 1-2 Tablet(s) PO Q6 as needed for pain 10/17/2016 10/21/2016 Inactive Keflex 500 mg capsule RxNorm: 924502 1 Capsule(s) PO TID 10/07/2016 10/06/2016 Inactive Keflex 500 mg capsule RxNorm: 907730 1 Capsule(s) PO TID 10/07/2016 10/16/2016 Inactive Please deliver to patient cyanocobalamin (vit B-12) 1,000 mcg/mL injection solution RxNorm: 021287 1 Milliliter(s) Inj 09/29/2016 09/29/2016 Inactive alprazolam 0.25 mg tablet RxNorm: 473709 1 Tablet(s) PO BID 09/20/2016 03/16/2017 Inactive Cozaar 100 mg tablet RxNorm: 686578 1 Tablet(s) PO daily 09/14/2016 No Stop Date Active metoprolol tartrate 50 mg tablet RxNorm: 257240 1/2 Tablet(s) PO BID 09/14/2016 12/12/2016 Inactive Zoloft 50 mg tablet RxNorm: 035156 Tablet(s) TAKE 1 TABLET BY MOUTH DAILY 09/14/2016 03/12/2017 Inactive Generic For:ZOLOFT 50MG liothyronine 5 mcg tablet RxNorm: 530577 1 Tablet(s) PO BID 09/14/2016 10/23/2016 Inactive Calmoseptine 0.44 %-20.6 % topical ointment RxNorm: 730042 1 Application TOP BID and as needed to sore on buttocks 09/07/2016 No Stop Date Active cyanocobalamin (vit B-12) 1,000 mcg/mL injection solution RxNorm: 452141 Milliliter(s) Inj 08/29/2016 08/29/2016 Inactive hydrocodone 5 mg-acetaminophen 325 mg tablet RxNorm: 998764 1-2 Tablet(s) PO Q6 as needed for pain 08/29/2016 10/16/2016 Inactive levothyroxine 125 mcg tablet RxNorm: 111346 1 Tablet(s) PO daily 08/25/2016 10/23/2016 Inactive Topamax 25 mg tablet RxNorm: 872623 TAKE 1 TABLET BY MOUTH EVERY DAY AT BEDTIME 08/17/2016 12/05/2016 Inactive Generic For:TOPAMAX 25MG 08/17/2016 2:14:37 PM hydrocodone 5 mg-acetaminophen 325 mg tablet RxNorm: 014216 1-2 Tablet(s) PO Q6 as needed for pain 08/11/2016 08/28/2016 Inactive hydrocodone 5 mg-acetaminophen 325 mg tablet RxNorm: 931919 1 -2 Tablet(s) PO Q6 as needed for pain 08/11/2016 08/18/2016 Inactive hydrocodone 5 mg-acetaminophen 325 mg tablet RxNorm: 177107 1 Tablet(s) PO Q6 as needed for pain 08/05/2016 08/10/2016 Inactive cyanocobalamin (vit B-12) 1,000 mcg/mL injection solution RxNorm: 833409 Milliliter(s) Inj 08/04/2016 08/04/2016 Inactive Norvasc 10 mg tablet RxNorm: 206683 1 Tablet(s) PO daily 07/26/2016 07/20/2017 Inactive alprazolam 0.25 mg tablet RxNorm: 787875 1 Tablet(s) PO QHS 07/21/2016 09/19/2016 Inactive Norvasc 5 mg tablet RxNorm: 670036 1 Tablet(s) PO daily 07/21/2016 07/25/2016 Inactive levothyroxine 125 mcg tablet RxNorm: 639365 1 Tablet(s) PO daily 07/21/2016 12/11/2017 Inactive cyanocobalamin (vit B-12) 1,000 mcg/mL injection solution RxNorm: 760180 Milliliter(s) Inj 07/21/2016 07/21/2016 Inactive Zoloft 50 mg tablet RxNorm: 727595 Tablet(s) TAKE 1 TABLET BY MOUTH DAILY 07/21/2016 09/13/2016 Inactive Generic For:ZOLOFT 50MG cyanocobalamin (vit B-12) 1,000 mcg/mL injection solution RxNorm: 994248 1 Milliliter(s) Inj 07/05/2016 07/05/2016 Inactive cyanocobalamin (vit B-12) 1,000 mcg/mL injection solution RxNorm: 813133 1 Milliliter(s) Inj 06/22/2016 06/22/2016 Inactive cyanocobalamin (vit B-12) 1,000 mcg/mL injection solution RxNorm: 506045 Milliliter(s) Inj 06/09/2016 06/09/2016 Inactive Aricept 10 mg tablet RxNorm: 916567 1 Tablet(s) PO daily 05/27/2016 05/21/2017 Inactive Mobic 15 mg tablet RxNorm: 158468 1 Tablet(s) PO daily 05/27/2016 05/21/2017 Inactive levothyroxine 125 mcg tablet RxNorm: 721816 1 Tablet(s) PO daily 05/25/2016 07/20/2016 Inactive cyanocobalamin (vit B-12) 1,000 mcg/mL injection solution RxNorm: 653213 1 Milliliter(s) Inj 05/25/2016 05/25/2016 Inactive doxycycline hyclate 100 mg capsule RxNorm: 6616712 1 Capsule(s) PO BID 05/16/2016 05/15/2016 Inactive doxycycline hyclate 100 mg capsule RxNorm: 5334653 1 Capsule(s) PO BID 05/16/2016 05/22/2016 Inactive cyanocobalamin (vit B-12) 1,000 mcg/mL injection solution RxNorm: 069876 Milliliter(s) Inj 05/10/2016 05/10/2016 Inactive cyanocobalamin (vit B-12) 1,000 mcg/mL injection solution RxNorm: 326365 Milliliter(s) Inj 04/26/2016 04/26/2016 Inactive Topamax 25 mg tablet RxNorm: 534895 1 Tablet(s) PO QPM 04/22/2016 08/16/2016 Inactive cyanocobalamin (vit B-12) 1,000 mcg/mL injection solution RxNorm: 809554 Milliliter(s) 1 Milliliter(s) Inj [id number] 04/11/2016 12/31/2017 Inactive liothyronine 5 mcg tablet RxNorm: 393209 1 Tablet(s) PO BID 04/11/2016 09/13/2016 Inactive cyanocobalamin (vit B-12) 1,000 mcg/mL injection solution RxNorm: 883966 Milliliter(s) Inj 04/11/2016 04/11/2016 Inactive cyanocobalamin (vit B-12) 1,000 mcg/mL injection solution RxNorm: 438675 Milliliter(s) Inj 03/31/2016 03/31/2016 Inactive cyanocobalamin (vit B-12) 1,000 mcg/mL injection solution RxNorm: 794212 1 Milliliter(s) Inj 03/15/2016 03/15/2016 Inactive levothyroxine 125 mcg tablet RxNorm: 152427 1 Tablet(s) PO daily 2016 03/03/2016 Inactive levothyroxine 125 mcg tablet RxNorm: 333662 1 Tablet(s) PO daily 2016 05/24/2016 Inactive cyanocobalamin (vit B-12) 1,000 mcg/mL injection solution RxNorm: 746133 Milliliter(s) Inj 02/25/2016 02/25/2016 Inactive cyanocobalamin (vit B-12) 1,000 mcg/mL injection solution RxNorm: 301167 1 Milliliter(s) Inj 02/02/2016 02/02/2016 Inactive sucralfate 1 gram tablet RxNorm: 878164 1 Tablet(s) PO QHS 01/25/2016 No Stop Date Active amiodarone 200 mg tablet RxNorm: 889102 1/2 Tablet(s) PO BID 01/25/2016 05/21/2017 Inactive cyanocobalamin (vit B-12) 1,000 mcg/mL injection solution RxNorm: 003717 Milliliter(s) Inj 01/18/2016 01/18/2016 Inactive cyanocobalamin (vit B-12) 1,000 mcg/mL injection solution RxNorm: 761154 Milliliter(s) Inj 12/29/2015 12/29/2015 Inactive Topamax 25 mg tablet RxNorm: 178828 1 Tablet(s) PO QPM 12/08/2015 04/05/2016 Inactive cyanocobalamin (vit B-12) 1,000 mcg/mL injection solution RxNorm: 973834 Milliliter(s) Inj 12/08/2015 12/08/2015 Inactive Bactrim DS 800 mg-160 mg tablet RxNorm: 653485 1 Tablet(s) PO BID 11/23/2015 11/22/2015 Inactive cyanocobalamin (vit B-12) 1,000 mcg/mL injection solution RxNorm: 978719 Milliliter(s) Inj 11/23/2015 11/23/2015 Inactive Bactrim DS 800 mg-160 mg tablet RxNorm: 068665 1 Tablet(s) PO BID 11/23/2015 11/29/2015 Inactive cyanocobalamin (vit B-12) 1,000 mcg/mL injection solution RxNorm: 646395 Milliliter(s) Inj 11/11/2015 11/11/2015 Inactive amoxicillin 500 mg capsule RxNorm: 134372 1 Capsule(s) PO TID 11/10/2015 11/19/2015 Inactive Zithromax Z-Henrique 250 mg tablet RxNorm: 937913 1 Tablet(s) PO UD 11/10/2015 01/24/2016 Inactive zpack x 1 amoxicillin 500 mg capsule RxNorm: 388434 1 Capsule(s) PO TID 11/10/2015 11/09/2015 Inactive cyanocobalamin (vit B-12) 1,000 mcg/mL injection solution RxNorm: 892708 1 Milliliter(s) Inj 10/29/2015 10/29/2015 Inactive [place] 3 capsule RxNorm: 1 Capsule(s) PO QAM , 2 Capsules at noon, 1 Capsule QHS 10/13/2015 No Stop Date Active potassium chloride ER 20 mEq tablet,extended release RxNorm: 778997 2 Tablet(s) PO daily at noon 10/13/2015 No Stop Date Active alprazolam 0.25 mg tablet RxNorm: 414698 1 Tablet(s) PO QHS 10/13/2015 07/20/2016 Inactive amiodarone 200 mg tablet RxNorm: 899492 1 Tablet(s) PO BID 10/13/2015 01/24/2016 Inactive cyanocobalamin (vit B-12) 1,000 mcg/mL injection solution RxNorm: 430634 1 Milliliter(s) Inj 10/12/2015 10/12/2015 Inactive Zofran 4 mg tablet RxNorm: 205347 1 Tablet(s) PO daily as needed 10/07/2015 05/24/2016 Inactive Zoloft 50 mg tablet RxNorm: 215318 TAKE 1 TABLET BY MOUTH DAILY 10/05/2015 05/01/2016 Inactive Generic For:ZOLOFT 50MG cyanocobalamin (vit B-12) 1,000 mcg/mL injection solution RxNorm: 480164 1 Milliliter(s) Inj 09/29/2015 09/29/2015 Inactive cyanocobalamin (vit B-12) 1,000 mcg/mL injection solution RxNorm: 843436 1 Milliliter(s) Inj 09/17/2015 09/17/2015 Inactive Norvasc 5 mg tablet RxNorm: 781587 1 Tablet(s) PO daily 09/17/2015 07/20/2016 Inactive liothyronine 5 mcg tablet RxNorm: 608275 1 Tablet(s) PO BID 09/17/2015 03/14/2016 Inactive Zoloft 50 mg tablet RxNorm: 068302 1 Tablet(s) PO daily 09/17/2015 10/04/2015 Inactive buspirone 15 mg tablet RxNorm: 423467 1 Tablet(s) PO BID 09/17/2015 09/10/2016 Inactive buspirone 15 mg tablet RxNorm: 630984 1 Tablet(s) PO BID 09/14/2015 09/16/2015 Inactive Topamax 25 mg tablet RxNorm: 647113 1 Tablet(s) PO QPM 09/03/2015 12/07/2015 Inactive cyanocobalamin (vit B-12) 1,000 mcg/mL injection solution RxNorm: 820969 1 Milliliter(s) Inj 09/03/2015 09/03/2015 Inactive cyanocobalamin (vit B-12) 1,000 mcg/mL injection solution RxNorm: 762313 Milliliter(s) Inj 08/17/2015 08/17/2015 Inactive cyanocobalamin (vit B-12) 1,000 mcg/mL injection solution RxNorm: 642147 Milliliter(s) Inj 08/06/2015 08/06/2015 Inactive levothyroxine 150 mcg tablet RxNorm: 590896 1 Tablet(s) PO daily 07/22/2015 03/03/2016 Inactive Aricept 10 mg tablet RxNorm: 196395 1 Tablet(s) PO daily 07/22/2015 05/26/2016 Inactive Mobic 15 mg tablet RxNorm: 602929 1 Tablet(s) PO daily 07/22/2015 05/26/2016 Inactive cyanocobalamin (vit B-12) 1,000 mcg/mL injection solution RxNorm: 133600 Milliliter(s) Inj 07/22/2015 07/22/2015 Inactive liothyronine 5 mcg tablet RxNorm: 030888 1 Tablet(s) PO BID 07/22/2015 09/16/2015 Inactive cyanocobalamin (vit B-12) 1,000 mcg/mL injection solution RxNorm: 762734 Milliliter(s) Inj 07/08/2015 07/08/2015 Inactive cyanocobalamin (vit B-12) 1,000 mcg/mL injection solution RxNorm: 311733 Milliliter(s) Inj 06/23/2015 06/23/2015 Inactive cyanocobalamin (vit B-12) 1,000 mcg/mL injection solution RxNorm: 248191 1 Milliliter(s) Inj 06/08/2015 06/08/2015 Inactive cyanocobalamin (vit B-12) 1,000 mcg/mL injection solution RxNorm: 529727 Milliliter(s) Inj 05/27/2015 05/27/2015 Inactive Aricept 10 mg tablet RxNorm: 278192 1 Tablet(s) PO daily 05/20/2015 07/21/2015 Inactive Zofran 4 mg tablet RxNorm: 136460 1 Tablet(s) PO daily as needed 05/20/2015 06/18/2015 Inactive alprazolam 0.25 mg tablet RxNorm: 143393 1 Tablet(s) PO BID 05/20/2015 10/12/2015 Inactive Mobic 15 mg tablet RxNorm: 671901 1 Tablet(s) PO daily 05/20/2015 07/21/2015 Inactive tramadol ER 100 mg tablet,extended release 24 hr RxNorm: 989930 1 Tablet(s) PO Q6 as needed 05/13/2015 No Stop Date Active cyanocobalamin (vit B-12) 1,000 mcg/mL injection solution RxNorm: 215481 1 Milliliter(s) Inj 05/12/2015 05/12/2015 Inactive Topamax 25 mg tablet RxNorm: 883572 1 Tablet(s) PO BID (start at one pill at bedtime x 1week then twice daily thereafter) 05/12/2015 09/02/2015 Inactive cyanocobalamin (vit B-12) 1,000 mcg/mL injection kit RxNorm: 883323 kit Inj 04/30/2015 04/30/2015 Inactive cyanocobalamin (vit B-12) 1,000 mcg/mL injection solution RxNorm: 246057 Milliliter(s) Inj 04/16/2015 04/16/2015 Inactive levothyroxine 150 mcg tablet RxNorm: 056549 1 Tablet(s) PO daily 04/08/2015 07/21/2015 Inactive cyanocobalamin (vit B-12) 1,000 mcg/mL injection solution RxNorm: 680520 Milliliter(s) 1 Milliliter(s) Inj [id number] 04/08/2015 04/10/2016 Inactive Cytomel 5 mcg tablet RxNorm: 248231 1 Tablet(s) PO BID 04/08/2015 10/12/2015 Inactive Cytomel 5 mcg tablet RxNorm: 696715 1 Tablet(s) PO BID 04/07/2015 04/07/2015 Inactive Cytomel 5 mcg tablet RxNorm: 429039 1 Tablet(s) PO BID 04/07/2015 04/06/2015 Inactive cyanocobalamin (vit B-12) 1,000 mcg/mL injection solution RxNorm: 815185 Milliliter(s) Inj 04/02/2015 04/02/2015 Inactive cyanocobalamin (vit B-12) 1,000 mcg/mL injection solution RxNorm: 185005 Milliliter(s) Inj 03/18/2015 03/18/2015 Inactive cyanocobalamin (vit B-12) 1,000 mcg/mL injection solution RxNorm: 705545 Milliliter(s) 1 Milliliter(s) Inj [id number] 03/18/2015 04/07/2015 Inactive cyanocobalamin (vit B-12) 1,000 mcg/mL injection solution RxNorm: 956435 1 Milliliter(s) Inj I9lovel 03/16/2015 03/17/2015 Inactive cyanocobalamin (vit B-12) 1,000 mcg/mL injection solution RxNorm: 134686 Milliliter(s) Inj 03/03/2015 03/03/2015 Inactive cyanocobalamin (vit B-12) 1,000 mcg/mL injection solution RxNorm: 963782 Milliliter(s) Inj 02/18/2015 02/18/2015 Inactive cyanocobalamin (vit B-12) 1,000 mcg/mL injection solution RxNorm: 298255 Milliliter(s) Inj 02/04/2015 02/04/2015 Inactive cyanocobalamin (vit B-12) 1,000 mcg/mL injection solution RxNorm: 741259 Milliliter(s) Inj 01/22/2015 01/22/2015 Inactive Lac-Hydrin Five 5 % lotion RxNorm: 152744 1 TOP daily 01/13/2015 03/13/2015 Inactive Lac-Hydrin Five 5 % lotion RxNorm: 852516 1 TOP daily 01/13/2015 01/12/2015 Inactive cyanocobalamin (vit B-12) 1,000 mcg/mL injection solution RxNorm: 701265 Milliliter(s) Inj 01/08/2015 01/08/2015 Inactive cyanocobalamin (vit B-12) 1,000 mcg/mL injection solution RxNorm: 468541 Milliliter(s) Inj 12/25/2014 12/25/2014 Inactive levothyroxine 150 mcg tablet RxNorm: 556701 1 Tablet(s) PO daily 12/24/2014 04/07/2015 Inactive tramadol 50 mg tablet RxNorm: 918019 1-2 Tablet(s) PO Q6 as needed 12/17/2014 05/12/2015 Inactive alprazolam 0.25 mg tablet RxNorm: 903036 1 Tablet(s) PO BID 12/17/2014 04/15/2015 Inactive Pradaxa 150 mg capsule RxNorm: 2443299 1 Capsule(s) PO BID 12/16/2014 No Stop Date Active metoprolol tartrate 50 mg tablet RxNorm: 584986 1/2 Tablet(s) PO BID 12/16/2014 09/13/2016 Inactive buspirone 15 mg tablet RxNorm: 649163 1 Tablet(s) PO BID 12/16/2014 09/13/2015 Inactive cyanocobalamin (vit B-12) 1,000 mcg/mL injection solution RxNorm: 048255 1 Milliliter(s) Inj [id number] 12/16/2014 03/15/2015 Inactive cyanocobalamin (vit B-12) 1,000 mcg/mL injection solution RxNorm: 832816 1 Milliliter(s) Inj W0ucnea 12/16/2014 12/15/2014 Inactive sucralfate 1 gram tablet RxNorm: 093339 Tablet(s) PO QID 12/16/2014 12/10/2015 Inactive cyanocobalamin (vit B-12) 1,000 mcg/mL injection solution RxNorm: 199569 Milliliter(s) Inj 12/10/2014 12/10/2014 Inactive cyanocobalamin (vit B-12) 1,000 mcg/mL injection solution RxNorm: 945093 Milliliter(s) Inj 11/26/2014 11/26/2014 Inactive Zoloft 50 mg tablet RxNorm: 586330 1 Tablet(s) PO daily 11/24/2014 06/21/2015 Inactive Zoloft 50 mg tablet RxNorm: 711771 1 Tablet(s) PO daily 11/24/2014 11/23/2014 Inactive cyanocobalamin (vit B-12) 1,000 mcg/mL injection kit RxNorm: 268461 Milliliter(s) Inj 11/12/2014 11/12/2014 Inactive cyanocobalamin (vit B-12) 1,000 mcg/mL injection solution RxNorm: 719603 Milliliter(s) Inj 10/28/2014 10/28/2014 Inactive [SAVINGS FOR NON-COVERED DRUGS -- BIN:[id number], PCN: [id number], Group: [id number], ID# [id number], Questions: . THIS IS NOT INSURANCE.] promethazine oral RxNorm: 8745 oral No Start Date Active tramadol 50 mg tablet RxNorm: 362071 1 Tablet(s) PO TID No Start Date Active digoxin 125 mcg tablet RxNorm: 722463 Tablet(s) PO every other day No Start Date Active furosemide 40 mg tablet RxNorm: 664459 1 Tablet(s) PO daily No Start Date Active Vitamin D3 5,000 unit tablet RxNorm: 374228 1 Tablet(s) PO daily No Start Date Active erythromycin 250 mg capsule,delayed release RxNorm: 829078 1 Capsule(s) PO AC No Start Date Active Protonix 40 mg tablet,delayed release RxNorm: 528600 1 Tablet(s) PO BID No Start Date Active Cozaar 100 mg tablet RxNorm: 024141 1 Tablet(s) PO daily No Start Date 09/13/2016 Inactive sucralfate 1 gram tablet RxNorm: 812561 Tablet(s) PO QID No Start Date 12/15/2014 Inactive amiodarone 200 mg tablet RxNorm: 273907 2 Tablet(s) PO daily No Start Date 10/13/2015 Inactive buspirone 15 mg tablet RxNorm: 460667 1 Tablet(s) PO daily No Start Date 12/15/2014 Inactive potassium chloride ER 20 mEq tablet,extended release RxNorm: 429680 1 Tablet(s) PO daily No Start Date 10/12/2015 Inactive Prilosec 40 mg capsule,delayed release RxNorm: 319695 1 Capsule(s) PO daily No Start Date 09/02/2015 Inactive [place] 3 capsule RxNorm: Capsule(s) PO No Start Date 10/12/2015 Inactive alprazolam 0.25 mg tablet RxNorm: 237230 Tablet(s) PO QHS No Start Date 12/16/2014 Inactive levothyroxine 125 mcg tablet RxNorm: 422999 1 Tablet(s) PO daily No Start Date 12/23/2014 Inactive liothyronine 5 mcg tablet RxNorm: 843518 1 Tablet(s) PO BID No Start Date 07/21/2015 Inactive Mobic 15 mg tablet RxNorm: 336752 Tablet(s) PO daily No Start Date 05/19/2015 Inactive Norvasc 5 mg tablet RxNorm: 398456 1 Tablet(s) PO daily No Start Date 09/16/2015 Inactive Zofran 4 mg tablet RxNorm: 884376 1 Tablet(s) PO daily as needed No Start Date 05/19/2015 Inactive Tamiflu 75 mg capsule RxNorm: 736038 1 Capsule(s) PO BID No Start Date 07/23/2017 Inactive tramadol 50 mg tablet RxNorm: 889658 1 Tablet(s) PO daily as needed No Start Date 12/16/2014 Inactive amiodarone 200 mg tablet RxNorm: 106627 1 Tablet(s) PO daily No Start Date 10/12/2015 Inactive Zofran ODT 4 mg disintegrating tablet RxNorm: 964801 1 Tablet(s) PO TID as needed No Start Date 05/02/2017 Inactive albuterol sulfate 2.5 mg/3 mL (0.083 %) solution for nebulization RxNorm: 963919 3 Milliliter(s) INH Q6 PRN No Start Date 09/20/2017 Inactive meclizine 25 mg tablet RxNorm: 808671 Tablet(s) PO as needed No Start Date 05/24/2016 Inactive Pradaxa 150 mg capsule RxNorm: 2594003 1 Capsule(s) PO daily No Start Date 12/15/2014 Inactive metoprolol tartrate 50 mg tablet RxNorm: 150667 1/2 Tablet(s) PO No Start Date 12/15/2014 Inactive Aricept 10 mg tablet RxNorm: 458444 Tablet(s) PO daily No Start Date 05/19/2015 Inactive Calmoseptine 0.44 %-20.6 % topical ointment RxNorm: 006551 1 Application TOP BID and as needed to sore on buttocks No Start Date 09/06/2016 Inactive Zithromax Z-Henrique 250 mg tablet RxNorm: 200113 1 Tablet(s) PO UD No Start Date 11/09/2015 Inactive zpack x 1 Medication Administered Medication Codes Instructions Start Date Status cyanocobalamin (vit B-12) 1,000 mcg/mL injection solution RxNorm: 777113 Milliliter 08/29/2018 No longer Active cyanocobalamin (vit B-12) 1,000 mcg/mL injection solution RxNorm: 917584 Milliliter 08/15/2018 No longer Active Kenalog 40 mg/mL suspension for injection RxNorm: 5126500 Milliliter 08/15/2018 No longer Active cyanocobalamin (vit B-12) 1,000 mcg/mL injection solution RxNorm: 881165 Milliliter 08/01/2018 No longer Active cyanocobalamin (vit B-12) 1,000 mcg/mL injection solution RxNorm: 909862 Milliliter 07/19/2018 No longer Active cyanocobalamin (vit B-12) 1,000 mcg/mL injection solution RxNorm: 576483 Milliliter 07/04/2018 No longer Active cyanocobalamin (vit B-12) 1,000 mcg/mL injection solution RxNorm: 329821 Milliliter 06/20/2018 No longer Active cyanocobalamin (vit B-12) 1,000 mcg/mL injection solution RxNorm: 845792 Milliliter 06/06/2018 No longer Active cyanocobalamin (vit B-12) 1,000 mcg/mL injection solution RxNorm: 254327 Milliliter 05/24/2018 No longer Active cyanocobalamin (vit B-12) 1,000 mcg/mL injection solution RxNorm: 668879 Milliliter 05/09/2018 No longer Active cyanocobalamin (vit B-12) 1,000 mcg/mL injection solution RxNorm: 331704 Milliliter 04/26/2018 No longer Active cyanocobalamin (vit B-12) 1,000 mcg/mL injection solution RxNorm: 011924 Milliliter 04/12/2018 No longer Active cyanocobalamin (vit B-12) 1,000 mcg/mL injection solution RxNorm: 442597 Milliliter 03/30/2018 No longer Active cyanocobalamin (vit B-12) 1,000 mcg/mL injection solution RxNorm: 228261 Milliliter 03/16/2018 No longer Active cyanocobalamin (vit B-12) 1,000 mcg/mL injection solution RxNorm: 158190 Milliliter 03/02/2018 No longer Active cyanocobalamin (vit B-12) 1,000 mcg/mL injection solution RxNorm: 714564 Milliliter 02/08/2018 No longer Active cyanocobalamin (vit B-12) 1,000 mcg/mL injection solution RxNorm: 539407 Milliliter 01/24/2018 No longer Active cyanocobalamin (vit B-12) 1,000 mcg/mL injection solution RxNorm: 892411 Milliliter 01/10/2018 No longer Active cyanocobalamin (vit B-12) 1,000 mcg/mL injection solution RxNorm: 455748 Milliliter 12/27/2017 No longer Active cyanocobalamin (vit B-12) 1,000 mcg/mL injection solution RxNorm: 826732 1Milliliter 12/12/2017 No longer Active cyanocobalamin (vit B-12) 1,000 mcg/mL injection solution RxNorm: 558554 Milliliter 12/01/2017 No longer Active cyanocobalamin (vit B-12) 1,000 mcg/mL injection solution RxNorm: 397190 1Milliliter 11/17/2017 No longer Active cyanocobalamin (vit B-12) 1,000 mcg/mL injection solution RxNorm: 405772 1Milliliter 11/02/2017 No longer Active cyanocobalamin (vit B-12) 1,000 mcg/mL injection solution RxNorm: 504779 1Milliliter 10/20/2017 No longer Active cyanocobalamin (vit B-12) 1,000 mcg/mL injection solution RxNorm: 306511 Milliliter 10/06/2017 No longer Active cyanocobalamin (vit B-12) 1,000 mcg/mL injection solution RxNorm: 964358 Milliliter 09/21/2017 No longer Active Kenalog 40 mg/mL suspension for injection RxNorm: 8167182 Milliliter 09/15/2017 No longer Active cyanocobalamin (vit B-12) 1,000 mcg/mL injection solution RxNorm: 208119 Milliliter 09/07/2017 No longer Active cyanocobalamin (vit B-12) 1,000 mcg/mL injection solution RxNorm: 409540 Milliliter 08/24/2017 No longer Active cyanocobalamin (vit B-12) 1,000 mcg/mL injection solution RxNorm: 354938 Milliliter 07/06/2017 No longer Active Kenalog 40 mg/mL suspension for injection RxNorm: 6693224 1Milliliter 06/20/2017 No longer Active cyanocobalamin (vit B-12) 1,000 mcg/mL injection solution RxNorm: 239304 Milliliter 06/20/2017 No longer Active cyanocobalamin (vit B-12) 1,000 mcg/mL injection solution RxNorm: 617000 Milliliter 06/05/2017 No longer Active cyanocobalamin (vit B-12) 1,000 mcg/mL injection solution RxNorm: 276494 Milliliter 05/25/2017 No longer Active cyanocobalamin (vit B-12) 1,000 mcg/mL injection solution RxNorm: 670194 Milliliter 05/16/2017 No longer Active cyanocobalamin (vit B-12) 1,000 mcg/mL injection solution RxNorm: 482991 1Milliliter 05/01/2017 No longer Active cyanocobalamin (vit B-12) 1,000 mcg/mL injection solution RxNorm: 646114 Milliliter 04/18/2017 No longer Active cyanocobalamin (vit B-12) 1,000 mcg/mL injection solution RxNorm: 336696 Milliliter 04/06/2017 No longer Active cyanocobalamin (vit B-12) 1,000 mcg/mL injection solution RxNorm: 252309 Milliliter 03/22/2017 No longer Active cyanocobalamin (vit B-12) 1,000 mcg/mL injection solution RxNorm: 339249 Milliliter 03/09/2017 No longer Active cyanocobalamin (vit B-12) 1,000 mcg/mL injection solution RxNorm: 875468 Milliliter 02/23/2017 No longer Active cyanocobalamin (vit B-12) 1,000 mcg/mL injection solution RxNorm: 338482 Milliliter 02/09/2017 No longer Active cyanocobalamin (vit B-12) 1,000 mcg/mL injection solution RxNorm: 367208 Milliliter 01/23/2017 No longer Active cyanocobalamin (vit B-12) 1,000 mcg/mL injection solution RxNorm: 189082 Milliliter 01/10/2017 No longer Active cyanocobalamin (vit B-12) 1,000 mcg/mL injection solution RxNorm: 627358 1Milliliter 12/28/2016 No longer Active cyanocobalamin (vit B-12) 1,000 mcg/mL injection solution RxNorm: 176404 Milliliter 12/14/2016 No longer Active cyanocobalamin (vit B-12) 1,000 mcg/mL injection solution RxNorm: 369772 Milliliter 11/24/2016 No longer Active cyanocobalamin (vit B-12) 1,000 mcg/mL injection solution RxNorm: 715955 1Milliliter 11/07/2016 No longer Active cyanocobalamin (vit B-12) 1,000 mcg/mL injection solution RxNorm: 816869 Milliliter 10/24/2016 No longer Active cyanocobalamin (vit B-12) 1,000 mcg/mL injection solution RxNorm: 042163 1Milliliter 09/29/2016 No longer Active cyanocobalamin (vit B-12) 1,000 mcg/mL injection solution RxNorm: 565407 Milliliter 08/29/2016 No longer Active cyanocobalamin (vit B-12) 1,000 mcg/mL injection solution RxNorm: 907216 Milliliter 08/04/2016 No longer Active cyanocobalamin (vit B-12) 1,000 mcg/mL injection solution RxNorm: 828584 Milliliter 07/21/2016 No longer Active cyanocobalamin (vit B-12) 1,000 mcg/mL injection solution RxNorm: 532023 1Milliliter 07/05/2016 No longer Active cyanocobalamin (vit B-12) 1,000 mcg/mL injection solution RxNorm: 891227 1Milliliter 06/22/2016 No longer Active cyanocobalamin (vit B-12) 1,000 mcg/mL injection solution RxNorm: 115106 Milliliter 06/09/2016 No longer Active cyanocobalamin (vit B-12) 1,000 mcg/mL injection solution RxNorm: 277735 1Milliliter 05/25/2016 No longer Active cyanocobalamin (vit B-12) 1,000 mcg/mL injection solution RxNorm: 240317 Milliliter 05/10/2016 No longer Active cyanocobalamin (vit B-12) 1,000 mcg/mL injection solution RxNorm: 061821 Milliliter 04/26/2016 No longer Active cyanocobalamin (vit B-12) 1,000 mcg/mL injection solution RxNorm: 538270 Milliliter 04/11/2016 No longer Active cyanocobalamin (vit B-12) 1,000 mcg/mL injection solution RxNorm: 062914 Milliliter 03/31/2016 No longer Active cyanocobalamin (vit B-12) 1,000 mcg/mL injection solution RxNorm: 718154 1Milliliter 03/15/2016 No longer Active cyanocobalamin (vit B-12) 1,000 mcg/mL injection solution RxNorm: 600948 Milliliter 02/25/2016 No longer Active cyanocobalamin (vit B-12) 1,000 mcg/mL injection solution RxNorm: 167798 1Milliliter 02/02/2016 No longer Active cyanocobalamin (vit B-12) 1,000 mcg/mL injection solution RxNorm: 390853 Milliliter 01/18/2016 No longer Active cyanocobalamin (vit B-12) 1,000 mcg/mL injection solution RxNorm: 568909 Milliliter 12/29/2015 No longer Active cyanocobalamin (vit B-12) 1,000 mcg/mL injection solution RxNorm: 808612 Milliliter 12/08/2015 No longer Active cyanocobalamin (vit B-12) 1,000 mcg/mL injection solution RxNorm: 164956 Milliliter 11/23/2015 No longer Active cyanocobalamin (vit B-12) 1,000 mcg/mL injection solution RxNorm: 088435 Milliliter 11/11/2015 No longer Active cyanocobalamin (vit B-12) 1,000 mcg/mL injection solution RxNorm: 919717 1Milliliter 10/29/2015 No longer Active cyanocobalamin (vit B-12) 1,000 mcg/mL injection solution RxNorm: 659860 1Milliliter 10/12/2015 No longer Active cyanocobalamin (vit B-12) 1,000 mcg/mL injection solution RxNorm: 695644 1Milliliter 09/29/2015 No longer Active cyanocobalamin (vit B-12) 1,000 mcg/mL injection solution RxNorm: 517000 1Milliliter 09/17/2015 No longer Active cyanocobalamin (vit B-12) 1,000 mcg/mL injection solution RxNorm: 575780 1Milliliter 09/03/2015 No longer Active cyanocobalamin (vit B-12) 1,000 mcg/mL injection solution RxNorm: 223532 Milliliter 08/17/2015 No longer Active cyanocobalamin (vit B-12) 1,000 mcg/mL injection solution RxNorm: 063441 Milliliter 08/06/2015 No longer Active cyanocobalamin (vit B-12) 1,000 mcg/mL injection solution RxNorm: 323840 Milliliter 07/22/2015 No longer Active cyanocobalamin (vit B-12) 1,000 mcg/mL injection solution RxNorm: 876302 Milliliter 07/08/2015 No longer Active cyanocobalamin (vit B-12) 1,000 mcg/mL injection solution RxNorm: 927485 Milliliter 06/23/2015 No longer Active cyanocobalamin (vit B-12) 1,000 mcg/mL injection solution RxNorm: 860973 1Milliliter 06/08/2015 No longer Active cyanocobalamin (vit B-12) 1,000 mcg/mL injection solution RxNorm: 408836 Milliliter 05/27/2015 No longer Active cyanocobalamin (vit B-12) 1,000 mcg/mL injection solution RxNorm: 661132 1Milliliter 05/12/2015 No longer Active cyanocobalamin (vit B-12) 1,000 mcg/mL injection kit RxNorm: 356998 kit 04/30/2015 No longer Active cyanocobalamin (vit B-12) 1,000 mcg/mL injection solution RxNorm: 394416 Milliliter 04/16/2015 No longer Active cyanocobalamin (vit B-12) 1,000 mcg/mL injection solution RxNorm: 488812 Milliliter 04/02/2015 No longer Active cyanocobalamin (vit B-12) 1,000 mcg/mL injection solution RxNorm: 985941 Milliliter 03/18/2015 No longer Active cyanocobalamin (vit B-12) 1,000 mcg/mL injection solution RxNorm: 736895 Milliliter 03/03/2015 No longer Active cyanocobalamin (vit B-12) 1,000 mcg/mL injection solution RxNorm: 599150 Milliliter 02/18/2015 No longer Active cyanocobalamin (vit B-12) 1,000 mcg/mL injection solution RxNorm: 601404 Milliliter 02/04/2015 No longer Active cyanocobalamin (vit B-12) 1,000 mcg/mL injection solution RxNorm: 706866 Milliliter 01/22/2015 No longer Active cyanocobalamin (vit B-12) 1,000 mcg/mL injection solution RxNorm: 309159 Milliliter 01/08/2015 No longer Active cyanocobalamin (vit B-12) 1,000 mcg/mL injection solution RxNorm: 551980 Milliliter 12/25/2014 No longer Active cyanocobalamin (vit B-12) 1,000 mcg/mL injection solution RxNorm: 174769 Milliliter 12/10/2014 No longer Active cyanocobalamin (vit B-12) 1,000 mcg/mL injection solution RxNorm: 253791 Milliliter 11/26/2014 No longer Active cyanocobalamin (vit B-12) 1,000 mcg/mL injection kit RxNorm: 978868 Milliliter 11/12/2014 No longer Active cyanocobalamin (vit B-12) 1,000 mcg/mL injection solution RxNorm: 402128 Milliliter 10/28/2014 No longer Active Immunizations Vaccine Codes Date Status Influenza CVX: 141 03/16/2018 completed Influenza CVX: 141 03/22/2017 completed Pneumococcal (Adult) CVX: 33 05/25/2016 completed Influenza CVX: 141 03/15/2016 completed Assessments Condition Codes Effective Dates Essential (primary) hypertension ICD-10: I10 ICD-9: 401.9 [...] 08/15/2018 Cough ICD-10: R05 ICD-9: 786.2 08/15/2018 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 ICD-9: 281.1 07/04/2018 Encounter for immunization ICD-10: Z23 ICD-9: V03.82 [...] Observation Code Item Item Code Result Date Tsh Ord6 TSH (3rd IS) 6.48 uIU/mL 09/10/2018 Free T4 [id number] FREE T4 0.89 ng/dL 09/10/2018 Lipid Ord30 CHOL 177 mg/dL 09/10/2018 Lipid Ord30 HDL 64.0 mg/dl 09/10/2018 Lipid Ord30 TRIG 126 mg/dL 09/10/2018 Lipid Ord30 LDL 88 mg/dL 09/10/2018 Lipid Ord30 C/HDL 2.8 Ratio 09/10/2018 Comp Metabolic Equ205 NA 139 mEq/L 09/10/2018 Comp Metabolic Kkq423 K 4.8 mEq/L 09/10/2018 Comp Metabolic Klz078 CL 103 mEq/L 09/10/2018 Comp Metabolic Qxq693 CO2 25.0 mEq/L 09/10/2018 Comp Metabolic Sim601 ANION GAP 16 09/10/2018 Comp Metabolic Vth795 GLUCOSE 104 mg/dL 09/10/2018 Comp Metabolic Yjv288 Creat 1.0 mg/dL 09/10/2018 Comp Metabolic Qqv697 eGFR 54 ml/min/1.73m2 09/10/2018 Comp Metabolic Nxu240 BUN 25 mg/dL 09/10/2018 Comp Metabolic Dyp605 B/C Ratio 24.3 Ratio 09/10/2018 Comp Metabolic Tpr116 CALCIUM 9.3 mg/dL 09/10/2018 Comp Metabolic Adp734 ALK PHOS 71 U/L 09/10/2018 Comp Metabolic Cxp344 AST(SGOT) 25 U/L 09/10/2018 Comp Metabolic Ndb320 ALT(SGPT) 28 U/L 09/10/2018 Comp Metabolic Cfl253 BILI T 0.7 mg/dL 09/10/2018 Comp Metabolic Vid785 ALBUMIN 4.2 g/dL 09/10/2018 Comp Metabolic Zmu874 TPRO 6.5 g/dL 09/10/2018 Comp Metabolic Ixd013 GLOB 2.3 g/dL 09/10/2018 Comp Metabolic Jnu504 A/G Ratio 1.8 Ratio 09/10/2018 Comp Metabolic Cpx041 Osmo 282 mOsmo 09/10/2018 Cbc With Differential [...] 27.7 pg 09/10/2018 Cbc With Differential Ord2 [place]% 8.8 % 09/10/2018 Cbc With Differential Ord2 [...] 2.24 K/ul 09/10/2018 Cbc With Differential Ord2 [place] ABS# 0.6 K/ul 09/10/2018 Cbc With Differential Ord2 Eos ABS# 0.2 K/ul 09/10/2018 Cbc With Differential Ord2 Baso ABS# 0.1 K/ul 09/10/2018 %Hba1C Iqs660 % HbA1c 35087- 6 6.0 % 09/10/2018 %Hba1C Rib134 Gluc Ave 126 mg/dL 09/10/2018 Test(s) Not Perfromed [id number] Test(s) Not Performed Test(s) Not Performed. See Below: 09/10/2018 Test(s) Not Perfromed [id number] TEST NAME Microalbumin 09/10/2018 Test(s) Not Perfromed [id number] Rejection Reason Patient Unable to Void 09/10/2018 Test(s) Not Perfromed [id number] COMMENT Patient to deliver sample to the lab at a later date 09/10/2018 Test(s) Not Perfromed [id number] Pole Lift Operator Favio Mulligan 09/10/2018 Lipid Ord30 CHOL 174 mg/dL 05/29/2018 Lipid Ord30 HDL 49.0 mg/dl 05/29/2018 Lipid Ord30 TRIG 200 mg/dL 05/29/2018 Lipid Ord30 LDL 85 mg/dL 05/29/2018 Lipid Ord30 C/HDL 3.6 Ratio 05/29/2018 Tsh Ord6 TSH (3rd IS) 3.20 uIU/mL 02/26/2018 Free T4 Hnw329 FREE T4 0.99 ng/dL 02/26/2018 Cbc With [...] 28.5 pg 02/26/2018 Cbc With Differential Ord2 [place]% 10.3 % 02/26/2018 Cbc With Differential Ord2 [...] 1.80 K/ul 02/26/2018 Cbc With Differential Ord2 [place] ABS# 0.7 K/ul 02/26/2018 Cbc With Differential Ord2 Eos ABS# 0.2 K/ul 02/26/2018 Cbc With Differential Ord2 Baso ABS# 0.0 K/ul 02/26/2018 B12 Bpp700 B12 889.00 pg/ml 02/26/2018 Digoxin Ord9 DIGOXIN 0.7 NG/ML 11/23/2017 Comp Metabolic Xvr334 NA 142 mEq/L 11/23/2017 Comp Metabolic Tvl215 K 4.9 mEq/L 11/23/2017 Comp Metabolic Xyc813 CL 112 mEq/L 11/23/2017 Comp Metabolic Cmv560 CO2 18.0 mEq/L 11/23/2017 Comp Metabolic Cnt251 ANION GAP 17 11/23/2017 Comp Metabolic Rga443 GLUCOSE 123 mg/dL 11/23/2017 Comp Metabolic Lti596 Creat 1.0 mg/dL 11/23/2017 Comp Metabolic Wyh291 eGFR 59 ml/min/1.73m2 11/23/2017 Comp Metabolic Clo384 BUN 24 mg/dL 11/23/2017 Comp Metabolic Nxo793 B/C Ratio 25.0 Ratio 11/23/2017 Comp Metabolic Pwv475 CALCIUM 9.4 mg/dL 11/23/2017 Comp Metabolic Ejs733 ALK PHOS 56 U/L 11/23/2017 Comp Metabolic Fkx862 AST(SGOT) 17 U/L 11/23/2017 Comp Metabolic Vsv303 ALT(SGPT) 16 U/L 11/23/2017 Comp Metabolic Znz241 BILI T 0.7 mg/dL 11/23/2017 Comp Metabolic Klj618 ALBUMIN 3.8 g/dL 11/23/2017 Comp Metabolic Icq514 TPRO 6.2 g/dL 11/23/2017 Comp Metabolic Tcz443 GLOB 2.4 g/dL 11/23/2017 Comp Metabolic Ppl954 A/G Ratio 1.6 Ratio 11/23/2017 Comp Metabolic Bjn229 Osmo 289 mOsmo 11/23/2017 Free T4 Sng230 FREE T4 1.04 ng/dL 11/23/2017 %Hba1C Bzh706 % HbA1c 42897- 6 6.4 % 11/23/2017 %Hba1C Ouv708 Gluc Ave 137 mg/dL 11/23/2017 Lipid Ord30 CHOL 179 mg/dL 11/23/2017 Lipid Ord30 HDL 51.0 mg/dl 11/23/2017 Lipid Ord30 TRIG 134 mg/dL 11/23/2017 Lipid Ord30 LDL 101 mg/dL 11/23/2017 Lipid Ord30 C/HDL 3.5 Ratio 11/23/2017 Tsh Ord6 TSH (3rd IS) 1.00 uIU/mL 11/23/2017 Microalbumin Teq630 MicroAlb <0.7 mg/dL 11/23/2017 Comp Metabolic Auu817 NA 141 mEq/L 01/23/2017 Comp Metabolic Jei734 K 4.5 mEq/L 01/23/2017 Comp Metabolic Mfp416 CL 107 mEq/L 01/23/2017 Comp Metabolic Geq904 CO2 21.0 mEq/L 01/23/2017 Comp Metabolic Bch070 ANION GAP 18 01/23/2017 Comp Metabolic Qpo667 GLUCOSE 138 mg/dL 01/23/2017 Comp Metabolic Hyt948 Creat 1.0 mg/dL 01/23/2017 Comp Metabolic Der726 eGFR 56 ml/min/1.73m2 01/23/2017 Comp Metabolic Sza322 BUN 26 mg/dL 01/23/2017 Comp Metabolic Ldg626 B/C Ratio 25.7 Ratio 01/23/2017 Comp Metabolic Vpf097 CALCIUM 9.0 mg/dL 01/23/2017 Comp Metabolic Gmv240 ALK PHOS 37 U/L 01/23/2017 Comp Metabolic Hha319 AST(SGOT) 20 U/L 01/23/2017 Comp Metabolic Ocn543 ALT(SGPT) 25 U/L 01/23/2017 Comp Metabolic Dbj862 BILI T 0.9 mg/dL 01/23/2017 Comp Metabolic Pxn114 ALBUMIN 3.8 g/dL 01/23/2017 Comp Metabolic Pwl199 TPRO 6.5 g/dL 01/23/2017 Comp Metabolic Dtj580 GLOB 2.7 g/dL 01/23/2017 Comp Metabolic Mpk939 A/G Ratio 1.4 Ratio 01/23/2017 Comp Metabolic Ohg481 Osmo 288 mOsmo 01/23/2017 Free T4 Kef634 FREE T4 1.05 ng/dL 01/23/2017 %Hba1C Mka152 % HbA1c 59952- 6 6.1 % 01/23/2017 %Hba1C Zhr343 Gluc Ave 128 mg/dL 01/23/2017 Tsh Ord6 hTSH II 1.68 uIU/mL 01/23/2017 Culture Urine [id number] URINE CULTURE SEE NOTES 11/10/2016 Culture Urine [id number] Continued Results 11/10/2016 Urine Culture Ucult Complete [...] Ord15 CALCIUM 9.3 mg/dL 09/29/2016 Free T4 Bbo138 FREE T4 0.99 ng/dL 09/07/2016 Cbc With [...] 30.0 pg 09/07/2016 Cbc With Differential Ord2 [place]% 9.8 % 09/07/2016 Cbc With Differential Ord2 [...] 1.75 K/ul 09/07/2016 Cbc With Differential Ord2 [place] ABS# 0.6 K/ul 09/07/2016 Cbc With Differential Ord2 Eos ABS# 0.1 K/ul 09/07/2016 Cbc With Differential Ord2 Baso ABS# 0.0 K/ul 09/07/2016 Tsh Ord6 hTSH II 1.41 uIU/mL 09/07/2016 Culture Urine [id number] URINE CULTURE SEE NOTES 06/27/2016 Lipid Ord30 CHOL 196 mg/dL 06/22/2016 Lipid Ord30 HDL 63.0 mg/dl 06/22/2016 Lipid Ord30 TRIG 154 mg/dL 06/22/2016 Lipid Ord30 LDL 102 mg/dL 06/22/2016 Lipid Ord30 C/HDL 3.1 Ratio 06/22/2016 Hepatic Smi255 ALBUMIN 4.2 g/dL 06/22/2016 Hepatic Pqr500 TPRO 7.0 g/dL 06/22/2016 Hepatic Xrv596 GLOB 2.8 g/dL 06/22/2016 Hepatic Drf979 A/G Ratio 1.5 Ratio 06/22/2016 Hepatic Fzj422 ALK PHOS 54 U/L 06/22/2016 Hepatic Vqp174 ALT(SGPT) 30 U/L 06/22/2016 Hepatic Qds532 AST(SGOT) 24 U/L 06/22/2016 Hepatic Neq716 BILI T 1.1 mg/dL 06/22/2016 Hepatic Qnk164 BILI D 0.2 mg/dL 06/22/2016 Hepatic Mga419 BILI I 0.9 mg/dL 06/22/2016 Comp Metabolic Qtl647 NA 139 mEq/L 06/14/2016 Comp Metabolic Rvt942 K 4.6 mEq/L 06/14/2016 Comp Metabolic Lwy304 CL 108 mEq/L 06/14/2016 Comp Metabolic Aho965 CO2 22.0 mEq/L 06/14/2016 Comp Metabolic Elq810 ANION GAP 14 06/14/2016 Comp Metabolic Xmv890 GLUCOSE 114 mg/dL 06/14/2016 Comp Metabolic Lnf803 Creat 1.2 mg/dL 06/14/2016 Comp Metabolic Vmn082 eGFR 48 ml/min/1.73m2 06/14/2016 Comp Metabolic Sqs089 BUN 24 mg/dL 06/14/2016 Comp Metabolic Hji130 B/C Ratio 20.9 Ratio 06/14/2016 Comp Metabolic Wti046 CALCIUM 9.9 mg/dL 06/14/2016 Comp Metabolic Oly965 ALK PHOS 47 U/L 06/14/2016 Comp Metabolic Gmc456 AST(SGOT) 28 U/L 06/14/2016 Comp Metabolic Aeg955 ALT(SGPT) 32 U/L 06/14/2016 Comp Metabolic Box012 BILI T 0.9 mg/dL 06/14/2016 Comp Metabolic Lkb143 ALBUMIN 4.1 g/dL 06/14/2016 Comp Metabolic Ahw974 TPRO 6.9 g/dL 06/14/2016 Comp Metabolic Gfi328 GLOB 2.8 g/dL 06/14/2016 Comp Metabolic Zds689 A/G Ratio 1.5 Ratio 06/14/2016 Comp Metabolic Qvu326 Osmo 282 mOsmo 06/14/2016 Tsh Ord6 hTSH II 1.26 uIU/mL 06/14/2016 Free T4 Ogi465 FREE T4 1.09 ng/dL 06/14/2016 Tsh Ord6 hTSH II 0.28 uIU/mL 02/02/2016 Digoxin Ord9 DIGOXIN 0.7 NG/ML 02/02/2016 Free T4 Omq486 FREE T4 1.23 ng/dL 02/02/2016 Hepatic Tjx360 ALBUMIN 4.0 g/dL 02/02/2016 Hepatic Atq627 TPRO 7.0 g/dL 02/02/2016 Hepatic Ibk239 GLOB 3.0 g/dL 02/02/2016 Hepatic Ygy139 A/G Ratio 1.3 Ratio 02/02/2016 Hepatic Ocf930 ALK PHOS 57 U/L 02/02/2016 Hepatic Afk369 ALT(SGPT) 62 U/L 02/02/2016 Hepatic Jnn337 AST(SGOT) 54 U/L 02/02/2016 Hepatic Jyv928 BILI T 0.8 mg/dL 02/02/2016 Hepatic Mxj168 BILI D 0.2 mg/dL 02/02/2016 Hepatic Zkl659 BILI I 0.6 mg/dL 02/02/2016 Urine Culture Ucult Preliminary No Growth Day 1 11/25/2015 Urine Culture Ucult Complete No Growth Day 2 11/25/2015 Hepatic Yar327 ALBUMIN 3.9 g/dL 11/11/2015 Hepatic Bae424 TPRO 7.0 g/dL 11/11/2015 Hepatic Pdk518 GLOB 3.1 g/dL 11/11/2015 Hepatic Sda322 A/G Ratio 1.3 Ratio 11/11/2015 Hepatic Jbr588 ALK PHOS 63 U/L 11/11/2015 Hepatic Cga794 ALT(SGPT) 107 U/L 11/11/2015 Hepatic Plm382 AST(SGOT) 101 U/L 11/11/2015 Hepatic Xji825 BILI T 0.6 mg/dL 11/11/2015 Hepatic Ozq202 BILI D 0.1 mg/dL 11/11/2015 Hepatic Ald065 BILI I 0.5 mg/dL 11/11/2015 Comp Metabolic Ipm573 NA 138 mEq/L 10/29/2015 Comp Metabolic Btu275 K 5.0 mEq/L 10/29/2015 Comp Metabolic Zvt067 CL 105 mEq/L 10/29/2015 Comp Metabolic Ckq172 CO2 23.0 mEq/L 10/29/2015 Comp Metabolic Qat266 ANION GAP 15 10/29/2015 Comp Metabolic Eac902 GLUCOSE 105 mg/dL 10/29/2015 Comp Metabolic Ryz626 Creat 1.0 mg/dL 10/29/2015 Comp Metabolic Ska042 eGFR 55 ml/min/1.73m2 10/29/2015 Comp Metabolic Mif824 BUN 20 mg/dL 10/29/2015 Comp Metabolic Lya629 B/C Ratio 19.4 Ratio 10/29/2015 Comp Metabolic Fth939 CALCIUM 8.8 mg/dL 10/29/2015 Comp Metabolic Wto346 ALK PHOS 56 U/L 10/29/2015 Comp Metabolic Sgf061 AST(SGOT) 66 U/L 10/29/2015 Comp Metabolic Auv515 ALT(SGPT) 78 U/L 10/29/2015 Comp Metabolic Pvs220 BILI T 0.7 mg/dL 10/29/2015 Comp Metabolic Ztm392 ALBUMIN 3.6 g/dL 10/29/2015 Comp Metabolic Pla046 TPRO 6.6 g/dL 10/29/2015 Comp Metabolic Wmj244 GLOB 3.0 g/dL 10/29/2015 Comp Metabolic Lfj743 A/G Ratio 1.2 Ratio 10/29/2015 Comp Metabolic Gmo987 Osmo 279 mOsmo 10/29/2015 Comp Metabolic Dyq916 NA 136 mEq/L 09/03/2015 Comp Metabolic Hpy862 K 4.4 mEq/L 09/03/2015 Comp Metabolic Zrx320 CL 103 mEq/L 09/03/2015 Comp Metabolic Crl910 CO2 24.0 mEq/L 09/03/2015 Comp Metabolic Kki118 ANION GAP 13 09/03/2015 Comp Metabolic Jjg492 GLUCOSE 87 mg/dL 09/03/2015 Comp Metabolic Cnt670 Creat 1.1 mg/dL 09/03/2015 Comp Metabolic Zwz033 eGFR 53 ml/min/1.73m2 09/03/2015 Comp Metabolic Yzy163 BUN 17 mg/dL 09/03/2015 Comp Metabolic Tqb596 B/C Ratio 16.2 Ratio 09/03/2015 Comp Metabolic Rkq408 CALCIUM 9.0 mg/dL 09/03/2015 Comp Metabolic Zdr161 ALK PHOS 55 U/L 09/03/2015 Comp Metabolic Rjp704 AST(SGOT) 83 U/L 09/03/2015 Comp Metabolic Ypl677 ALT(SGPT) 126 U/L 09/03/2015 Comp Metabolic Ufz120 BILI T 0.9 mg/dL 09/03/2015 Comp Metabolic Qth349 ALBUMIN 3.9 g/dL 09/03/2015 Comp Metabolic Gif734 TPRO 6.8 g/dL 09/03/2015 Comp Metabolic Wmv975 GLOB 2.9 g/dL 09/03/2015 Comp Metabolic Daf186 A/G Ratio 1.4 Ratio 09/03/2015 Comp Metabolic Egc803 Osmo 273 mOsmo 09/03/2015 Total T3 Ord42 TT3 0.6 ng/ml 07/09/2015 Tsh Ord6 hTSH II 1.62 uIU/mL 07/09/2015 Total T3 Ord42 TT3 0.5 ng/ml 04/02/2015 Free T4 Ewq803 FREE T4 1.23 ng/dL 04/02/2015 Tsh Ord6 [...] contact 09/05/2018 None Full Exam - General 1995 Constitutional general appearance Overall: well developed 08/15/2018 None Full Exam - General 1995 Constitutional general appearance Overall: in no acute distress 08/15/2018 None Full Exam - General 1995 Constitutional general appearance Overall: well nourished 08/15/2018 None Full Exam - General 1995 Eyes conjunctiva/eyelids Overall: conjunctiva clear 08/15/2018 None [...] General 1995 Ears/Nose/Throat lips/teeth/gingiva Overall: benign lips 01/23/2017 None [...] benign 01/23/2017 None Full Exam - General 1995 Ears/Nose/Throat oral cavity/pharynx/larynx Overall: no masses 01/23/2017 [...] Procedure Codes Date THER/PROPH/DIAG INJ SC/IM CPT-4: 42821 08/29/2018 THER/PROPH/DIAG INJ SC/IM CPT-4: 08375 08/15/2018 TRIAMCINOLONE ACET INJ NOS CPT-4: J3301 08/15/2018 THER/PROPH/DIAG INJ SC/IM CPT-4: 07236 08/01/2018 VITAMIN B12 INJECTION CPT- 4: J3420 08/01/2018 THER/PROPH/DIAG INJ SC/IM CPT-4: 75637 07/19/2018 THER/PROPH/DIAG INJ SC/IM CPT-4: 89576 07/04/2018 THER/PROPH/DIAG INJ SC/IM CPT-4: 46603 06/20/2018 THER/PROPH/DIAG INJ SC/IM CPT-4: 00265 06/06/2018 VITAMIN B12 INJECTION CPT- 4: J3420 06/06/2018 THER/PROPH/DIAG INJ SC/IM CPT-4: 70063 05/24/2018 THER/PROPH/DIAG INJ SC/IM CPT-4: 13388 05/09/2018 THER/PROPH/DIAG INJ SC/IM CPT-4: 40652 04/26/2018 VITAMIN B12 INJECTION CPT- 4: J3420 04/26/2018 THER/PROPH/DIAG INJ SC/IM CPT-4: 00104 04/12/2018 THER/PROPH/DIAG INJ SC/IM CPT-4: 79979 03/30/2018 THER/PROPH/DIAG INJ SC/IM CPT-4: 87585 03/16/2018 VITAMIN B12 INJECTION CPT- 4: J3420 03/16/2018 ADMIN INFLUENZA VIRUS VAC CPT-4: G0008 03/16/2018 FLU VACC PRSV FREE INC ANTIG Formatting Model/CDA Sections, Assigned to/Nga Ojeda CPT-4: 49793Codhzza 03/16/2018 THER/PROPH/DIAG INJ SC/IM CPT-4: 94584 03/02/2018 THER/PROPH/DIAG INJ SC/IM CPT-4: 39953 02/08/2018 THER/PROPH/DIAG INJ SC/IM CPT-4: 64475 01/24/2018 THER/PROPH/DIAG INJ SC/IM CPT-4: 83060 01/10/2018 THER/PROPH/DIAG INJ SC/IM CPT-4: 29872 12/27/2017 VITAMIN B12 INJECTION CPT- 4: J3420 12/27/2017 THER/PROPH/DIAG INJ SC/IM CPT-4: 57629 12/12/2017 THER/PROPH/DIAG INJ SC/IM CPT-4: 88026 12/01/2017 VITAMIN B12 INJECTION CPT- 4: J3420 12/01/2017 THER/PROPH/DIAG INJ SC/IM CPT-4: 10047 11/17/2017 THER/PROPH/DIAG INJ SC/IM CPT-4: 04973 11/02/2017 THER/PROPH/DIAG INJ SC/IM CPT-4: 32372 10/20/2017 THER/PROPH/DIAG INJ SC/IM CPT-4: 77431 10/06/2017 THER/PROPH/DIAG INJ SC/IM CPT-4: 62184 09/21/2017 TRIAMCINOLONE ACET INJ NOS CPT-4: J3301 09/15/2017 THER/PROPH/DIAG INJ SC/IM CPT-4: 52727 09/07/2017 THER/PROPH/DIAG INJ SC/IM CPT-4: 63412 08/24/2017 THER/PROPH/DIAG INJ SC/IM CPT-4: 82930 07/06/2017 THER/PROPH/DIAG INJ SC/IM CPT-4: 05198 06/20/2017 TRIAMCINOLONE ACET INJ NOS CPT-4: J3301 06/20/2017 PPPS, SUBSEQ VISIT CPT- 4: G0439 06/05/2017 THER/PROPH/DIAG INJ SC/IM CPT-4: 73834 06/05/2017 THER/PROPH/DIAG INJ SC/IM CPT-4: 84318 05/25/2017 VITAMIN B12 INJECTION CPT- 4: J3420 05/25/2017 THER/PROPH/DIAG INJ SC/IM CPT-4: 65845 05/16/2017 THER/PROPH/DIAG INJ SC/IM CPT-4: 90786 05/01/2017 THER/PROPH/DIAG INJ SC/IM CPT-4: 72909 04/18/2017 THER/PROPH/DIAG INJ SC/IM CPT-4: 38281 04/06/2017 ADMIN INFLUENZA VIRUS VAC CPT-4: G0008 03/22/2017 FLU VACC PRSV FREE INC ANTIG CPT-4: 40944 03/22/2017 THER/PROPH/DIAG INJ SC/IM CPT-4: 27161 03/09/2017 THER/PROPH/DIAG INJ SC/IM CPT-4: 25221 02/23/2017 THER/PROPH/DIAG INJ SC/IM CPT-4: 46952 02/09/2017 THER/PROPH/DIAG INJ SC/IM CPT-4: 80545 01/23/2017 THER/PROPH/DIAG INJ SC/IM CPT-4: 72692 01/10/2017 THER/PROPH/DIAG INJ SC/IM CPT-4: 70241 12/28/2016 THER/PROPH/DIAG INJ SC/IM CPT-4: 21740 12/14/2016 THER/PROPH/DIAG INJ SC/IM CPT-4: 80713 11/24/2016 URINALYSIS NONAUTO W/O SCOPE CPT-4: 70295 11/07/2016 THER/PROPH/DIAG INJ SC/IM CPT-4: 15536 11/07/2016 THER/PROPH/DIAG INJ SC/IM CPT-4: 09677 10/24/2016 THER/PROPH/DIAG INJ SC/IM CPT-4: 87025 09/29/2016 THER/PROPH/DIAG INJ SC/IM CPT-4: 38737 08/29/2016 THER/PROPH/DIAG INJ SC/IM CPT-4: 03860 08/04/2016 THER/PROPH/DIAG INJ SC/IM CPT-4: 71149 07/21/2016 THER/PROPH/DIAG INJ SC/IM CPT-4: 46645 07/05/2016 THER/PROPH/DIAG INJ SC/IM CPT-4: 97931 06/22/2016 URINALYSIS NONAUTO W/O SCOPE CPT-4: 02337 06/22/2016 THER/PROPH/DIAG INJ SC/IM CPT-4: 71478 06/09/2016 PPPS, SUBSEQ VISIT CPT- 4: G0439 05/30/2016 ADMIN PNEUMOCOCCAL VACCINE SNOMED CT: 31812697 CPT-4: G0009 05/25/2016 Pneumococcal Polysaccharide Vaccine, 23-Valent, Ad CPT-4: 54870 05/25/2016 THER/PROPH/DIAG INJ SC/IM CPT-4: 45842 05/25/2016 THER/PROPH/DIAG INJ SC/IM CPT-4: 53148 05/10/2016 TRIAMCINOLONE ACET INJ NOS CPT-4: J3301 04/26/2016 VITAMIN B12 INJECTION CPT- 4: J3420 04/26/2016 THER/PROPH/DIAG INJ SC/IM CPT-4: 71408 04/11/2016 THER/PROPH/DIAG INJ SC/IM CPT-4: 60963 03/31/2016 ADMIN INFLUENZA VIRUS VAC CPT-4: G0008 03/15/2016 FLU VACC 4 STEPHANIE 3 YRS PLUS IM SNOMED CT: [id number] CPT-4: 22849 03/15/2016 THER/PROPH/DIAG INJ SC/IM CPT-4: 59965 02/25/2016 THER/PROPH/DIAG INJ SC/IM CPT-4: 21193 02/02/2016 THER/PROPH/DIAG INJ SC/IM CPT-4: 29244 01/18/2016 VITAMIN B12 INJECTION CPT- 4: J3420 12/29/2015 THER/PROPH/DIAG INJ SC/IM CPT-4: 38890 12/29/2015 THER/PROPH/DIAG INJ SC/IM CPT-4: 73815 12/08/2015 THER/PROPH/DIAG INJ SC/IM CPT-4: 02966 11/23/2015 URINALYSIS NONAUTO W/O SCOPE CPT-4: 59059 11/23/2015 THER/PROPH/DIAG INJ SC/IM CPT-4: 94047 11/11/2015 THER/PROPH/DIAG INJ SC/IM CPT-4: 21515 10/29/2015 THER/PROPH/DIAG INJ SC/IM CPT-4: 81561 10/12/2015 VITAMIN B12 INJECTION CPT- 4: J3420 10/12/2015 THER/PROPH/DIAG INJ SC/IM CPT-4: 56016 09/29/2015 THER/PROPH/DIAG INJ SC/IM CPT-4: 22435 09/17/2015 THER/PROPH/DIAG INJ SC/IM CPT-4: 82737 09/03/2015 THER/PROPH/DIAG INJ SC/IM CPT-4: 77818 08/17/2015 THER/PROPH/DIAG INJ SC/IM CPT-4: 00075 08/06/2015 THER/PROPH/DIAG INJ SC/IM CPT-4: 62864 07/22/2015 THER/PROPH/DIAG INJ SC/IM CPT-4: 27382 07/08/2015 THER/PROPH/DIAG INJ SC/IM CPT-4: 86933 06/23/2015 THER/PROPH/DIAG INJ SC/IM CPT-4: 94403 06/08/2015 THER/PROPH/DIAG INJ SC/IM CPT-4: 17849 05/27/2015 DESTRUCT PREMALG LESION CPT-4: 35719 05/19/2015 DESTRUCT PREMALG LES 2-14 CPT-4: 21527 05/19/2015 THER/PROPH/DIAG INJ SC/IM CPT-4: 33561 05/12/2015 VITAMIN B12 INJECTION CPT- 4: J3420 05/12/2015 THER/PROPH/DIAG INJ SC/IM CPT-4: 22674 04/30/2015 VITAMIN B12 INJECTION CPT- 4: J3420 04/30/2015 THER/PROPH/DIAG INJ SC/IM CPT-4: 00440 04/16/2015 THER/PROPH/DIAG INJ SC/IM CPT-4: 36750 04/02/2015 VITAMIN B12 INJECTION CPT- 4: J3420 04/02/2015 THER/PROPH/DIAG INJ SC/IM CPT-4: 43318 03/18/2015 THER/PROPH/DIAG INJ SC/IM CPT-4: 32367 03/03/2015 THER/PROPH/DIAG INJ SC/IM CPT-4: 46733 02/18/2015 THER/PROPH/DIAG INJ SC/IM CPT-4: 72603 02/04/2015 VITAMIN B12 INJECTION CPT- 4: J3420 02/04/2015 THER/PROPH/DIAG INJ SC/IM CPT-4: 37516 01/22/2015 THER/PROPH/DIAG INJ SC/IM CPT-4: 30059 01/08/2015 VITAMIN B12 INJECTION CPT- 4: J3420 01/08/2015 THER/PROPH/DIAG INJ SC/IM CPT-4: 95795 12/25/2014 VITAMIN B12 INJECTION CPT- 4: J3420 12/25/2014 THER/PROPH/DIAG INJ SC/IM CPT-4: 91697 12/10/2014 VITAMIN B12 INJECTION CPT- 4: J3420 12/10/2014 THER/PROPH/DIAG INJ SC/IM CPT-4: 75504 11/26/2014 VITAMIN B12 INJECTION CPT- 4: J3420 11/26/2014 THER/PROPH/DIAG INJ SC/IM CPT-4: 87333 11/12/2014 VITAMIN B12 INJECTION CPT- 4: J3420 11/12/2014 THER/PROPH/DIAG INJ SC/IM CPT-4: 14250 10/28/2014 Vital Signs Date Vital 09/05/2018 Blood Pressure 1: 122/70 Code: 8480-6 BMI: 27.1 Code: 33439-0 Heart Rate 1: 90 bpm Height: 5'6" SpO2: 97% Weight: 168 lbs 08/15/2018 Blood Pressure 1: 142/76 Code: 8480-6 BMI: 27.4 Code: 81495-8 Heart Rate 1: 74 bpm Height: 5'6" SpO2: 95% Temperature: 36.7 (C) / 98.1 (F) Weight: 170 lbs 05/03/2018 Blood Pressure 1: 140/70 Code: 8480-6 BMI: 26.0 Code: 58019-6 Heart Rate 1: 70 bpm Height: 5'6" SpO2: 94% Weight: 161 lbs 04/26/2018 Height: 5'6" 02/26/2018 Blood Pressure 1: 130/72 Code: 8480-6 BMI: 27.9 Code: 20224-9 Heart Rate 1: 72 bpm Height: 5'6" SpO2: 93% Weight: 173 lbs 12/12/2017 Blood Pressure 1: 126/74 Code: 8480-6 BMI: 27.4 Code: 10659-5 Heart Rate 1: 83 bpm Height: 5'6" SpO2: 98% Weight: 170 lbs 12/04/2017 Blood Pressure 1: 104/68 Code: 8480-6 BMI: 28.2 Code: 44273-9 Heart Rate 1: 85 bpm Height: 5'6" SpO2: 95% Weight: 175 lbs 11/20/2017 Blood Pressure 1: 130/68 Code: 8480-6 BMI: 28.4 Code: 03841-9 Heart Rate 1: 80 bpm Height: 5'6" SpO2: 99% Weight: 176 lbs 11/02/2017 Height: 5'6" 09/15/2017 Blood Pressure 1: 134/74 Code: 8480-6 BMI: 28.4 Code: 11594-2 Heart Rate 1: 88 bpm Height: 5'6" SpO2: 98% Weight: 176 lbs 09/07/2017 Blood Pressure 1: 124/64 Code: 8480-6 Heart Rate 1: 90 bpm Height: SpO2: 97% Weight: 08/30/2017 Blood Pressure 1: 140/76 Code: 8480-6 BMI: 28.4 Code: 23527-8 Heart Rate 1: 90 bpm Height: 5'6" SpO2: 94% Weight: 176 lbs 07/06/2017 Blood Pressure 1: 132/66 Code: 8480-6 BMI: 29.4 Code: 41745-6 Heart Rate 1: 85 bpm Height: 5'6" SpO2: 97% Weight: 182 lbs 06/20/2017 Blood Pressure 1: 134/86 Code: 8480-6 Heart Rate 1: 90 bpm Height: SpO2: 98% Weight: 06/05/2017 BMI: 29.1 Code: 00580-9 Height: 5'6" Weight: 180 lbs 05/25/2017 Blood Pressure 1: 126/76 Code: 8480-6 BMI: 29.1 Code: 94103-1 Heart Rate 1: 77 bpm Height: 5'6" SpO2: 97% Weight: 180 lbs 03/23/2017 Blood Pressure 1: 142/84 Code: 8480-6 BMI: 29.1 Code: 50807-1 Heart Rate 1: 91 bpm Height: 5'6" SpO2: 97% Weight: 180 lbs 01/23/2017 Blood Pressure 1: 150/90 Code: 8480-6 BMI: 29.9 Code: 29228-8 Heart Rate 1: 81 bpm Height: 5'6" SpO2: 97% Weight: 185 lbs 11/02/2016 Blood Pressure 1: 148/78 Code: 8480-6 BMI: 29.7 Code: 07820-4 Heart Rate 1: 87 bpm Height: 5'6" SpO2: 97% Weight: 184 lbs 09/29/2016 Blood Pressure 1: 128/78 Code: 8480-6 BMI: 29.7 Code: 91710-9 Heart Rate 1: 78 bpm Height: 5'6" SpO2: 98% Weight: 184 lbs 07/26/2016 Blood Pressure 1: 138/72 Code: 8480-6 BMI: 30.0 Code: 57023-1 Heart Rate 1: 85 bpm Height: 5'6" SpO2: 97% Weight: 186 lbs 05/30/2016 Blood Pressure 1: 132/76 Code: 8480-6 BMI: 30.0 Code: 33781-2 Heart Rate 1: 80 bpm Height: 5'6" SpO2: 98% Waist Measure (cm): 99 cm Weight: 186 lbs 05/25/2016 Blood Pressure 1: 13276 Code: 8480-6 BMI: 30.0 Code: 61484-2 Heart Rate 1: 80 bpm Height: 5'6" SpO2: 96% Weight: 186 lbs 02/25/2016 Blood Pressure 1: 110/64 Code: 8480-6 Heart Rate 1: 82 bpm Height: SpO2: 96% Weight: 01/25/2016 Blood Pressure 1: 118/70 Code: 8480-6 BMI: 30.0 Code: 77477-9 Heart Rate 1: 78 bpm Height: 5'6" SpO2: 97% Weight: 186 lbs 11/11/2015 Blood Pressure 1: 128/82 Code: 8480-6 BMI: 29.2 Code: 48545-4 Heart Rate 1: 86 bpm Height: 5'6" SpO2: 96% Temperature: 36.4 (C) / 97.6 (F) Weight: 181 lbs 10/12/2015 Blood Pressure 1: 118/70 Code: 8480-6 BMI: 29.2 Code: 13805-1 Heart Rate 1: 81 bpm Height: 5'6" SpO2: 95% Weight: 181 lbs 09/03/2015 Blood Pressure 1: 138/78 Code: 8480-6 BMI: 29.9 Code: 27864-7 Heart Rate 1: 88 bpm Height: 5'6" SpO2: 97% Weight: 185 lbs 05/19/2015 Blood Pressure 1: 146/78 Code: 8480-6 BMI: 30.0 Code: 66557-3 Heart Rate 1: 66 bpm Height: 5'6" SpO2: 97% Weight: 186 lbs 05/12/2015 Blood Pressure 1: 120/70 Code: 8480-6 BMI: 29.9 Code: 43408-4 Heart Rate 1: 89 bpm Height: 5'6" SpO2: 95% Weight: 185 lbs 01/13/2015 Blood Pressure 1: 140/90 Code: 8480-6 BMI: 30.3 Code: 74349-3 Heart Rate 1: 84 bpm Height: 5'6" SpO2: 95% Weight: 188 lbs 12/16/2014 Blood Pressure 1: 140/82 Code: 8480-6 BMI: 29.5 Code: 49790-6 Heart Rate 1: 86 bpm Height: 5'6" [...] data Encounters Encounter Performer Location Codes Date ([id number]) [id number] EST. PATIENT, LEVEL IV Diagnosis: Essential (primary) hypertension[ICD10: I10] Diagnosis: Type 2 diabetes mellitus without complications[ICD10: E11.9] Diagnosis: Atrophy of thyroid (acquired)[ICD10: E03.4] Diagnosis: Other vitamin B12 deficiency anemias[ICD10: D51.8] Yarely Vega MD, [facility] CPT-4: 14977 09/05/2018 [id number] EST. PATIENT, LEVEL IV Diagnosis: Acute bronchitis due to other specified organisms[ICD10: J20.8] Diagnosis: Cough[ICD10: R05] Diagnosis: 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 factor deficiency[ICD10: D51.0] Brianna Vega MD, [facility] CPT-4: 51618 08/15/2018 ([id number]) 68653 EST. PATIENT, LEVEL IV Diagnosis: Essential (primary) hypertension[ICD10: I10] Diagnosis: Type 2 diabetes mellitus without complications[ICD10: E11.9] Yarely Vega MD, [facility] CPT-4: 04613 05/03/2018 ([id number]) 55593 EST. PATIENT, LEVEL III Diagnosis: Pain in left shoulder[ICD10: M25.512] Diagnosis: Pain in right shoulder[ICD10: M25.511] Yarely Vega MD, [facility] CPT-4: 39828 02/26/2018 ([id number]) 66088 EST. PATIENT, LEVEL III Diagnosis: Nausea[ICD10: R11.0] Diagnosis: Cough[ICD10: R05] Diagnosis: 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 factor deficiency[ICD10: D51.0] Janet Vega MD, [facility] CPT-4: 83543 12/12/2017 ([id number]) 40609 EST. PATIENT, LEVEL IV Diagnosis: Acute bronchitis due to Hemophilus influenzae[ICD10: J20.1] Diagnosis: Cough[ICD10: R05] Yarely Vega MD, [facility] CPT-4: 21002 12/04/2017 ([id number]) 41466 EST. PATIENT, LEVEL IV Diagnosis: Essential (primary) hypertension[ICD10: I10] Diagnosis: Cough[ICD10: R05] Diagnosis: Chronic atrial fibrillation[ICD10: I48.2] Yarely Vega MD, [facility] CPT-4: 46259 11/20/2017 ([id number]) 34985 EST. PATIENT, LEVEL III Diagnosis: Cough[ICD10: R05] Diagnosis: Acute upper respiratory infection, unspecified[ICD10: J06.9] Janet Vega MD, [facility] CPT-4: 13975 09/15/2017 [id number] EST. PATIENT, LEVEL III Diagnosis: Laceration without foreign body of right forearm, initial encounter[ICD10: S51.811A] Diagnosis: Other vitamin B12 deficiency anemias[ICD10: D51.8] Brianna Vega MD, [facility] CPT-4: 02881 09/07/2017 ([id number]) 40879 EST. PATIENT, LEVEL IV Diagnosis: Chronic atrial fibrillation[ICD10: I48.2] Diagnosis: Other allergic rhinitis[ICD10: J30.89] Diagnosis: Encounter for therapeutic drug level monitoring[ICD10: Z51.81] Yarely Vega MD, [facility] CPT-4: 64455 08/30/2017 ([id number]) 24370 EST. PATIENT, LEVEL IV Diagnosis: Atrophy of thyroid (acquired)[ICD10: E03.4] Diagnosis: Cough[ICD10: R05] Diagnosis: Laceration without foreign body of left forearm, initial encounter[ICD10: S51.812A] Diagnosis: Candidiasis of skin and nail[ICD10: B37.2] Diagnosis: Other vitamin B12 deficiency anemias[ICD10: D51.8] Diagnosis: Slow transit constipation[ICD10: K59.01] Yarely Vega MD, [facility] CPT-4: 60928 07/06/2017 [id number] EST. PATIENT, LEVEL III Diagnosis: Other vitamin B12 deficiency anemias[ICD10: D51.8] Diagnosis: Acute laryngopharyngitis[ICD10: J06.0] Diagnosis: Other allergic rhinitis[ICD10: J30.89] Brianna Vega MD, [facility] CPT- 4: 55676 06/20/2017 ([id number]) 35023 EST. PATIENT, LEVEL IV Diagnosis: Essential (primary) hypertension[ICD10: I10] Diagnosis: Chronic atrial fibrillation[ICD10: I48.2] Diagnosis: Atrophy of thyroid (acquired)[ICD10: E03.4] Diagnosis: 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 factor deficiency[ICD10: D51.0] Yarely Vega MD, [facility] CPT-4: 86684 05/25/2017 ([id number]) 60940 EST. PATIENT, LEVEL IV Diagnosis: Type 2 diabetes mellitus without complications[ICD10: E11.9] Diagnosis: Atrophy of thyroid (acquired)[ICD10: E03.4] Diagnosis: Chest pain on breathing[ICD10: R07.1] Diagnosis: Chondrocostal junction syndrome [Tietze][ICD10: M94.0] Diagnosis: Other fatigue[ICD10: R53.83] Yarely Vega MD, [facility] CPT-4: 39214 03/23/2017 ([id number]) 46929 EST. PATIENT, LEVEL IV Diagnosis: Type 2 diabetes mellitus without complications[ICD10: E11.9] Diagnosis: Essential (primary) hypertension[ICD10: I10] Diagnosis: Headache[ICD10: R51] Diagnosis: Atrophy of thyroid (acquired)[ICD10: E03.4] Diagnosis: Vitamin B12 deficiency anemia, unspecified[ICD10: D51.9] Yarely Vega MD, [facility] CPT-4: 37814 01/23/2017 38491 EST. PATIENT, LEVEL III Diagnosis: Low back pain[ICD10: M54.5] Diagnosis: Pain in thoracic spine[ICD10: M54.6] Brianna Vega MD, [facility] CPT- 4: 40229 11/02/2016 ([id number]) 15428 EST. PATIENT, LEVEL IV Diagnosis: Essential (primary) hypertension[ICD10: I10] Diagnosis: Other vitamin B12 deficiency anemias[ICD10: D51.8] Diagnosis: Generalized abdominal pain[ICD10: R10.84] Yarely Vega MD, [facility] CPT-4: 95986 09/29/2016 ([id number]) 77217 EST. PATIENT, LEVEL IV Diagnosis: Essential (primary) hypertension[ICD10: I10] Yarely Vega MD, [facility] CPT-4: 68458 07/26/2016 ([id number]) 52781 EST. PATIENT, LEVEL IV Diagnosis: Benign lipomatous neoplasm of skin and subcutaneous tissue of right leg[ICD10: D17.23] Diagnosis: Pain in right ankle and joints of right foot[ICD10: M25.571] Diagnosis: Encounter for immunization[ICD10: Z23] Diagnosis: Vitamin B12 deficiency anemia, unspecified[ICD10: D51.9] Yarely Vega MD, [facility] CPT-4: 31753 05/25/2016 37998 EST. PATIENT, LEVEL III Diagnosis: Other chest pain[ICD10: R07.89] Diagnosis: Other vitamin B12 deficiency anemias[ICD10: D51.8] Brianna Vega MD, [facility] CPT-4: 47412 02/25/2016 ([id number]) 08865 EST. 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 PATIENT, LEVEL III Diagnosis: Other vitamin B12 deficiency anemias[ICD10: D51.8] Diagnosis: Acute nasopharyngitis [common cold][ICD10: J00] Diagnosis: Other allergic rhinitis[ICD10: J30.89] Brianna Vega MD, [facility] CPT- 4: 86872 11/11/2015 ([id number]) 68957 EST. PATIENT, LEVEL IV Diagnosis: Essential tremor[ICD10: G25.0] Diagnosis: Chronic fatigue, unspecified[ICD10: R53.82] Diagnosis: Other hypersomnia[ICD10: G47.19] Diagnosis: Essential (primary) hypertension[ICD10: I10] Yarely Vega MD, [facility] CPT-4: 16565 10/12/2015 ([id number]) 48101 EST. PATIENT, LEVEL IV Diagnosis: Essential (primary) hypertension[ICD10: I10] Diagnosis: Chronic atrial fibrillation[ICD10: I48.2] Diagnosis: Abnormal levels of other serum enzymes[ICD10: R74.8] Diagnosis: Type 2 diabetes mellitus without complications[ICD10: E11.9] Diagnosis: Vitamin B12 deficiency anemia, unspecified[ICD10: D51.9] Yarely Vega MD, [facility] CPT-4: 76690 09/03/2015 ([id number] 97213 EST. PATIENT, LEVEL III Diagnosis: Nausea[ICD10: R11.0] Diagnosis: Essential tremor[ICD10: G25.0] Diagnosis: Actinic keratosis[ICD10: L57.0] Yarely Vega MD, [facility] CPT-4: 83450 05/19/2015 ([id number]) 85947 EST. PATIENT, LEVEL IV Diagnosis: Vitamin B12 deficiency anemia, unspecified[ICD10: D51.9] Diagnosis: Chronic atrial fibrillation[ICD10: I48.2] Diagnosis: Headache[ICD10: R51] Diagnosis: Chronic fatigue, unspecified[ICD10: R53.82] Diagnosis: Cervicalgia[ICD10: M54.2] Yarely Vega MD, [facility] CPT-4: 99365 05/12/2015 ([id number]) 08596 EST. PATIENT, LEVEL IV Diagnosis: ESSENTIAL HYPERTENSION[ICD9: 401.9] Diagnosis: Afib[ICD9: 427.31] Diagnosis: Anxiety[ICD9: 300.00] Diagnosis: Insomnia[ICD9: 780.52] Yarely Vega MD, [facility] CPT-4: 02706 01/13/2015 ([id number]) OFFICE VISIT, NEW - LEVEL 4 Diagnosis: Hypothyroidism[ICD9: 244.9] Diagnosis: DIABETES TYPE II[ICD9: 250.00] Diagnosis: ESSENTIAL HYPERTENSION[ICD9: 401.9] Diagnosis: Afib[ICD9: 427.31] Diagnosis: Anxiety[ICD9: 300.00] Diagnosis: B12 deficiency[ICD9: 266.2] [facility] CPT-4: 55048 12/16/2014 Plan of Care Planned Activity Notes Codes Status Date Visit Plan: Hypertension - well controlled - [...] of control. 09/05/2018 [phone] ([facility]) Moderate 09/05/2018 Patient Education: [...] Summary Completed 06/20/2018 App[facility]ment: [facility] [phone] [facility] [place] (30 min) Complex 06/07/2018 Appointment: Injection 06/06/2018 Patient Education: Patient Medication Summary Completed 06/06/2018 App[facility]ment: [facility] [address] [facility] [place] (15 min) Moderate 05/31/2018 Appointment: Injection [...] flonase 05/03/2018 [facility] [phone] [facility] (15 min) Moderate 05/03/2018 Patient Education: Patient [...] intervention. 02/26/2018 App[facility] [address] [facility] (15 min) Moderate 02/26/2018 Patient Education: Patient Medication Summary Completed 02/26/2018 Care Plan: Referral Order SNOMED-CT : [id number] Pending 02/26/2018 Appointment: Injection 02/08/2018 Patient Education: Patient Medication Summary Completed 02/08/2018 Appointment: Injection 01/24/2018 Patient Education: Patient Medication Summary Completed 01/24/2018 Appointment: Injection 01/10/2018 Patient Education: Patient Medication Summary Completed 01/10/2018 Appointment: Injection 12/27/2017 Patient Education: Patient Medication Summary Completed 12/27/2017 Appointment: Yarely Vega WPtel: [phone] [facility] (15 min) Moderate 12/26/2017 Visit Plan: Yqncls-ucdlcsclh-vlkzdjyq protonix-follow up with Dr Navarro as scheduled Cough-recent bronchitis-symptoms improved-call if symptoms do not completely resolve 12/12/2017 Appointment: Janet Fam WPtel: [phone] [place] (15 min) Moderate 12/12/2017 Patient Education: Patient Medication Summary Completed 12/12/2017 Visit Plan: Bronchitis - acute case of bronchitis identified. Pt has been given antibiotics, breathing treatments as appropriate, and pt has been instructed to call if symptoms are not improved, or if symptoms acutely worsen. Cough - rx for antibiotics as well as cough medication. 12/04/2017 Appointment: Yarely Vega WPtel: [phone] [facility] (15 min) Moderate 12/04/2017 Patient Education: Patient [...] Fatigue/malaise -Pt was advsied to ask the Cotton Buyer the following: ask the heart doctor if [...] becoming uncontrolled. 11/20/2017 Appointment: Yarely Vega WPtel: [facility] [place] (15 min) Moderate 11/20/2017 Patient Education: [...] any worse. 09/15/2017 Appointment: Janet Fam WPtel: [phone] [place] (15 min) Moderate 09/15/2017 Patient Education: Patient Medication Summary Completed 09/15/2017 Appointment: Yarely Vega WPtel: [facility] [place] (15 min) Moderate 09/11/2017 Visit Plan: Skin tear and Cellulitis - The patient was instructed in appropriate wound care. The patient was instructed to use the antibiotic ointment as per RX. The patient is to call for any change in symptoms, increase in size of the lesion, increase in pain, worsening redness, warmth, discharge. 09/07/2017 Appointment: Brianna Otoole WPtel: [facility] [place] (10 min) Simple 09/07/2017 Patient Education: Patient Medication Summary Completed 09/07/2017 Visit Plan: Lipoma - left ankle - talk to dr. barnes about possible surgery/laser for treatment of lipoma. Fatigue/malaise -Pt was advsied to ask the Cotton Buyer the following: ask the heart doctor if there is an alternative to the amiodarone - you may be having side effects from the medication causing you to have pruritus (itching) and feeling like you have body aches, muscle aches, joint pain, fatigue, weight loss (decreased appetite), and pneumonia like symptoms. Congestion - claritin 10mg daily. 08/30/2017 [facility]ment[phone] [facility] ([facility] min) Moderate 08/30/2017 Patient Education: Patient Medication Summary Completed 08/30/2017 Appointment: Injection 08/24/2017 Appointment: [facility] [address] [facility] [place] (15 min) Moderate 08/24/2017 Patient Education: [...] mucinex 07/06/2017 Appointment: [facility] [address] [facility] [place] (15 min) Moderate 07/06/2017 Patient Education: [...] allergy spray. 06/20/2017 [phone] [facility] ([facility] min) Moderate 06/20/2017 Patient Education: [...] Appointment: Injection 06/05/2017 App[facility]ment: [facility] [address] [facility] [facility] - Annual Wellness Visit 06/05/2017 Patient [...] q 3 months or q 6 m [facility] based on previous levels of control. 05/25/2017 Appointment: [facility] [phone] [facility] (15 min) Moderate 05/25/2017 Patient Education: [...] wall. Fatigue - pt to discuss with [employer]er about the possibility of amiodarone causing her fatigue/malaise. 03/23/2017 Appointment: [facility] [address] [facility] (15 min) Moderate 03/23/2017 Patient Education: [...] daily. 01/23/2017 App[facility]ment: [facility] [phone] [facility] (15 min) Moderate 01/23/2017 Patient Education: [...] App[facility]: [facility] [phone] [facility] (15 min) Moderate 11/02/2016 Patient Education: [...] carafate 09/29/2016 Appointment: [facility] [address] [facility] [place] (15 min) Moderate 09/29/2016 Patient Education: Patient Medication Summary Completed 09/29/2016 Appointment: [facility] [address] [facility] [place] (15 min) Moderate 09/27/2016 Appointment: [facility] [address] [facility] [place] (15 min) Moderate 09/20/2016 Appointment: [facility] [address] [facility] [place] (15 min) Moderate 09/20/2016 Patient Education: Patient Medication Summary Completed 09/06/2016 Appointment: [facility] [address] [facility] [place] (15 min) Moderate 08/30/2016 Appointment: [...] concerns. 07/26/2016 Appointment: [facility] [address] [facility] [place] (15 min) Moderate 07/26/2016 Patient [...] App[facility]: [facility] [phone] [facility] [facility] - Annual Wellness Visit 05/30/2016 Patient [...] bedtime 05/25/2016 App[facility]ment: [facility] [phone] [facility] (15 min) Moderate 05/25/2016 Patient Education: Patient Medication Summary Completed 05/25/2016 Patient Education: Obesity Completed 05/25/2016 Care Plan: Referral Order SNOMED-CT : [id number] Pending 05/25/2016 Appointment: Injection 05/10/2016 Patient Education: Patient Medication Summary Completed 05/10/2016 Appointment: Injection 04/26/2016 Patient Education: Patient Medication Summary Completed 04/26/2016 Appointment: Injection 04/11/2016 Patient Education: Patient Medication Summary Completed 04/11/2016 Appointment: Injection 03/31/2016 Patient Education: Patient Medication Summary Completed 03/31/2016 Patient Education: Patient Medication Summary Completed 03/22/2016 [facility] Plan[id number] Pending 03/22/2016 Appointment: Injection 03/15/2016 Patient Education: [...] any concerns. 02/25/2016 Appointment: Brianna Otoole WPtel: [facility] (15 min) Moderate 02/25/2016 Patient [...] the patients recent sleep study - recommended [facility] patient eval of pt - nocturnal [...] the patients recent sleep study - recommended [facility] patient eval of pt - nocturnal oxygen [...] case with Faiza's daughter who had left [facility]. She is interested in looking at assisted living facilities for her mom as Faiza's family is for assisted living placement sooner rather than later. 10/12/2015 Appointment: [facility] [facility] (15 min) Moderate 10/12/2015 Patient Education: [...] Completed 08/17/2015 Appointment: [facility] [address] [facility] (15 min) Moderate 08/11/2015 Appointment: Injection [...] x 2 05/19/2015 Appointment: [facility] [phone] [facility] (30 min) Complex 05/19/2015 Patient Education: [...] prn alprazolam. 01/13/2015 Appointment: Yarely Vega WPtel: [facility] (15 min) Moderate 01/13/2015 Patient Education: [...] medications. 12/16/2014 Appointment: [facility] [address] [phone] [place] New Patient 12/16/2014 [...] DOPA paperwork for health care surrogate. . Nrxqrw-osoaicmgj-mkwcswqx protonix-follow up with Dr Navarro as scheduled [...] Fatigue/malaise -Pt was advsied to ask the [employer] Buyer the following: ask the heart doctor if [...] Fatigue/malaise -Pt was advsied to ask the [employer] Buyer the following: ask the heart doctor if [...] wall. Fatigue - pt to discuss with [employer]er about the possibility of amiodarone causing her [...] the patients recent sleep study - recommended [facility] patient eval of pt - nocturnal [...] the patients recent sleep study - recommended [facility] patient eval of pt - nocturnal [...]
--- OUTSIDE RECORDS SUMMARY | 2018-12-05 17:35 | XMS REPORT | CCD ---
Author Author [facility] Organization [facility] Address [address] [place] [address] Phone Care Team Providers Care Hat Model Name Role Phone PP Unavailable CCM Unavailable Summary Purpose Interface Exchange Insurance Providers Payer name Policy type / Coverage type Covered democrat ID Effective Begin Date Effective End Date WPS Medicare Part B Medicare Part B [id number] Unknown Principal Life Insurance Medicare Part B [id number] Unknown [employer] in [place] Medicare Part B [id number] Unknown Family history Brother Diagnosis Age At Onset Heart Attack Unknown Mother Diagnosis Age At Onset Hypertension Unknown kidney disease Unknown Stroke Unknown Father Diagnosis Age At Onset Arthritis Unknown Social History Social History Element Codes Description Effective Dates Employment Unknown Retired worked at [employer] 11/20/2017 Marital status Unknown Single 12/16/[address]: 3646837 Former smoker 12/16/[address]: 656940575 Never drinks alcohol 12/16/2014 Allergies, Adverse Reactions, Alerts Substance Reaction Codes Entered Date Inactivated Date Status CODEINE RxNorm: 2670 05/25/2016 No Inactive Date Active ciprofloxacin RxNorm: 68167 12/16/2014 No Inactive Date Active MORPHINE SULFATE [...] (vit B-12) 1,000 mcg/mL injection solution RxNorm: 457875 Milliliter(s) Inj 08/29/2018 08/29/2018 Inactive alprazolam 0.25 mg tablet RxNorm: 400628 1 Tablet(s) PO BID 08/21/2018 02/16/2019 Active albuterol sulfate 2.5 mg/3 mL (0.083 %) solution for nebulization RxNorm: 902688 3 Milliliter(s) INH Q6 PRN 08/15/2018 No Stop Date Active Aricept 10 mg tablet RxNorm: 213307 1 Tablet(s) PO daily 08/15/2018 08/09/2019 Active liothyronine 5 mcg tablet RxNorm: 703590 Tablet(s) TAKE 1 TABLET BY MOUTH TWICE DAILY 08/15/2018 02/10/2019 Active cyanocobalamin (vit B-12) 1,000 mcg/mL injection solution RxNorm: 576193 Milliliter(s) Inj 08/15/2018 08/15/2018 Inactive Kenalog 40 mg/mL suspension for injection RxNorm: 7909146 Milliliter(s) Inj 08/15/2018 08/15/2018 Inactive doxycycline hyclate 100 mg capsule RxNorm: 2626478 1 Capsule(s) PO BID 08/15/2018 08/24/2018 Inactive cyanocobalamin (vit B-12) 1,000 mcg/mL injection solution RxNorm: 866530 Milliliter(s) Inj 08/01/2018 08/01/2018 Inactive cyanocobalamin (vit B-12) 1,000 mcg/mL injection solution RxNorm: 487048 Milliliter(s) Inj 07/19/2018 07/19/2018 Inactive hydrocodone 5 mg-acetaminophen 325 mg tablet RxNorm: 050049 1-2 Tablet(s) PO Q6 as needed for pain 07/18/2018 08/15/2018 Inactive betamethasone valerate 0.1 % topical ointment RxNorm: 215165 1 TOP BID 07/04/2018 07/03/2018 Inactive applying to skin under nose x 10 days cyanocobalamin (vit B-12) 1,000 mcg/mL injection solution RxNorm: 014256 Milliliter(s) Inj 07/04/2018 07/04/2018 Inactive betamethasone valerate 0.1 % topical ointment RxNorm: 311656 1 TOP BID 07/04/2018 07/13/2018 Inactive applying to skin under nose x 10 days Aricept 10 mg tablet RxNorm: 085156 Tablet(s) 1 Tablet(s) PO daily 06/25/2018 08/14/2018 Inactive Flonase Allergy Relief 50 mcg/actuation nasal spray,suspension RxNorm: 3071059 Cool 1 Cool NASAL BID 06/20/2018 10/17/2018 Active cyanocobalamin (vit B-12) 1,000 mcg/mL injection solution RxNorm: 886018 Milliliter(s) Inj 06/20/2018 06/20/2018 Inactive hydrocodone 5 mg-acetaminophen 325 mg tablet RxNorm: 792343 1-2 Tablet(s) PO Q6 as needed for pain 06/20/2018 07/17/2018 Inactive cyanocobalamin (vit B-12) 1,000 mcg/mL injection solution RxNorm: 049815 Milliliter(s) Inj 06/06/2018 06/06/2018 Inactive alprazolam 0.25 mg tablet RxNorm: 003952 1 Tablet(s) PO BID 05/25/2018 08/21/2018 Inactive hydrocodone 5 mg-acetaminophen 325 mg tablet RxNorm: 769261 1-2 Tablet(s) PO Q6 as needed for pain 05/24/2018 06/19/2018 Inactive cyanocobalamin (vit B-12) 1,000 mcg/mL injection solution RxNorm: 686490 Milliliter(s) Inj 05/24/2018 05/24/2018 Inactive cyanocobalamin (vit B-12) 1,000 mcg/mL injection solution RxNorm: 497248 Milliliter(s) Inj 05/09/2018 05/09/2018 Inactive Claritin 10 mg tablet RxNorm: 170431 TAKE 1 TABLET BY MOUTH ONCE DAILY 05/08/2018 05/02/2019 Active Generic For:CLARITIN 10MG 05/07/2018 9:13:47 AM cyanocobalamin (vit B-12) 1,000 mcg/mL injection solution RxNorm: 111096 INJECT ONE 1 ML EVERY TWO WEEKS 05/03/2018 04/03/2019 Active 05/03/2018 9:13:42 AM Mobic 15 mg tablet RxNorm: 237893 Tablet(s) 1 Tablet(s) PO daily 04/26/2018 04/20/2019 Active buspirone 15 mg tablet RxNorm: 947279 Tablet(s) TAKE 1 TABLET BY MOUTH TWICE DAILY 04/26/2018 04/20/2019 Active Generic For:BUSPAR 15MG 05/31/2017 9:19:20 AM Norvasc 5 mg tablet RxNorm: 608681 Tablet(s) 1 Tablet(s) PO daily 04/26/2018 04/20/2019 Active cyanocobalamin (vit B-12) 1,000 mcg/mL injection solution RxNorm: 661842 Milliliter(s) Inj 04/26/2018 04/26/2018 Inactive hydrocodone 5 mg-acetaminophen 325 mg tablet RxNorm: 577908 1-2 Tablet(s) PO Q6 as needed for pain 04/25/2018 05/23/2018 Inactive cyanocobalamin (vit B-12) 1,000 mcg/mL injection solution RxNorm: 098711 Milliliter(s) Inj 04/12/2018 04/12/2018 Inactive Topamax 25 mg tablet RxNorm: 155449 1 Tablet(s) PO BID 04/09/2018 05/02/2018 Inactive Generic For:TOPAMAX 25MG 12/06/2016 9:15:13 AM Zoloft 50 mg tablet RxNorm: 229434 TAKE 1 TABLET BY MOUTH ONCE DAILY 04/04/2018 12/29/2018 Active Generic For:ZOLOFT 50MG 04/04/2018 9:13:25 AM cyanocobalamin (vit B-12) 1,000 mcg/mL injection solution RxNorm: 056147 Milliliter(s) Inj 03/30/2018 03/30/2018 Inactive levothyroxine 125 mcg tablet RxNorm: 066000 TAKE 1 TABLET BY MOUTH EVERY DAY 03/26/2018 09/21/2018 Active Generic For:SYNTHROID 125MCG TAB 03/26/2018 9:15:59 AM liothyronine 5 mcg tablet RxNorm: 272895 TAKE 1 TABLET BY MOUTH TWICE DAILY 03/26/2018 08/14/2018 Inactive Generic For:CYTOMEL 5MCG 03/26/2018 9:15:54 AM hydrocodone 5 mg-acetaminophen 325 mg tablet RxNorm: 346022 1-2 Tablet(s) PO Q6 as needed for pain 03/19/2018 04/17/2018 Inactive cyanocobalamin (vit B-12) 1,000 mcg/mL injection solution RxNorm: 728146 Milliliter(s) Inj 03/16/2018 03/16/2018 Inactive Flonase Allergy Relief 50 mcg/actuation nasal spray,suspension RxNorm: 0773643 1 Cool NASAL BID 03/05/2018 06/19/2018 Inactive cyanocobalamin (vit B-12) 1,000 mcg/mL injection solution RxNorm: 574650 Milliliter(s) Inj 03/02/2018 03/02/2018 Inactive alprazolam 0.25 mg tablet RxNorm: 925028 1 Tablet(s) PO BID 02/28/2018 05/27/2018 Inactive cyanocobalamin (vit B-12) 1,000 mcg/mL injection solution RxNorm: 341217 Milliliter(s) Inj 02/08/2018 02/08/2018 Inactive cyanocobalamin (vit B-12) 1,000 mcg/mL injection solution RxNorm: 857413 Milliliter(s) Inj 01/24/2018 01/24/2018 Inactive albuterol sulfate 2.5 mg/3 mL (0.083 %) solution for nebulization RxNorm: 644659 3 Milliliter(s) INH Q6 PRN 01/24/2018 05/02/2018 Inactive Claritin 10 mg tablet RxNorm: 388910 1 Tablet(s) PO daily 01/15/2018 05/07/2018 Inactive cyanocobalamin (vit B-12) 1,000 mcg/mL injection solution RxNorm: 451612 Milliliter(s) Inj 01/10/2018 01/10/2018 Inactive hydrocodone 5 mg-acetaminophen 325 mg tablet RxNorm: 238440 1-2 Tablet(s) PO Q6 as needed for pain 01/09/2018 02/07/2018 Inactive cyanocobalamin (vit B-12) 1,000 mcg/mL injection solution RxNorm: 031746 Milliliter(s) Inj 12/27/2017 12/27/2017 Inactive cyanocobalamin (vit B-12) 1,000 mcg/mL injection solution RxNorm: 773393 1 Milliliter(s) Inj 12/12/2017 12/12/2017 Inactive Zofran ODT 4 mg disintegrating tablet RxNorm: 993300 1 Tablet(s) PO TID as needed 12/08/2017 12/09/2017 Inactive hydrocodone 2.5 mg-guaifenesin 200 mg/5 mL oral solution RxNorm: 036726 5 Milliliter(s) PO 12/04/2017 05/06/2018 Inactive doxycycline hyclate 100 mg capsule RxNorm: 1732823 1 Capsule(s) PO BID 12/04/2017 12/13/2017 Inactive cyanocobalamin (vit B-12) 1,000 mcg/mL injection solution RxNorm: 472602 Milliliter(s) Inj 12/01/2017 12/01/2017 Inactive Flonase Allergy Relief 50 mcg/actuation nasal spray,suspension RxNorm: 3041325 1 Cool NASAL BID 11/20/2017 2018 Inactive cyanocobalamin (vit B-12) 1,000 mcg/mL injection solution RxNorm: 805692 1 Milliliter(s) Inj 11/17/2017 11/17/2017 Inactive hydrocodone 5 mg-acetaminophen 325 mg tablet RxNorm: 664087 1-2 Tablet(s) PO Q6 as needed for pain 11/16/2017 12/15/2017 Inactive cyanocobalamin (vit B-12) 1,000 mcg/mL injection solution RxNorm: 322739 1 Milliliter(s) Inj 11/02/2017 11/02/2017 Inactive hydrocodone 5 mg-acetaminophen 325 mg tablet RxNorm: 962413 1-2 Tablet(s) PO Q6 as needed for pain 10/25/2017 11/15/2017 Inactive Claritin 10 mg tablet RxNorm: 338268 1 Tablet(s) PO daily 10/25/2017 11/19/2017 Inactive albuterol sulfate 2.5 mg/3 mL (0.083 %) solution for nebulization RxNorm: 045984 3 Milliliter(s) INH Q6 PRN 10/25/2017 01/23/2018 Inactive Claritin 10 mg tablet RxNorm: 896727 1 Tablet(s) PO daily 10/25/2017 10/24/2017 Inactive cyanocobalamin (vit B-12) 1,000 mcg/mL injection solution RxNorm: 115008 1 Milliliter(s) Inj 10/20/2017 10/20/2017 Inactive Zoloft 50 mg tablet RxNorm: 868080 TAKE 1 TABLET BY MOUTH ONCE DAILY 10/13/2017 04/03/2018 Inactive Generic For:ZOLOFT 50MG 10/13/2017 8:59:44 AM cyanocobalamin (vit B-12) 1,000 mcg/mL injection solution RxNorm: 925946 Milliliter(s) Inj 10/06/2017 10/06/2017 Inactive liothyronine 5 mcg tablet RxNorm: 591098 TAKE 1 TABLET BY MOUTH TWICE DAILY 10/03/2017 03/25/2018 Inactive Generic For:CYTOMEL 5MCG 10/03/2017 9:13:38 AM cyanocobalamin (vit B-12) 1,000 mcg/mL injection solution RxNorm: 288423 Milliliter(s) Inj 09/21/2017 09/21/2017 Inactive albuterol sulfate 2.5 mg/3 mL (0.083 %) solution for nebulization RxNorm: 377257 3 Milliliter(s) INH Q6 PRN 09/21/2017 10/24/2017 Inactive hydrocodone 5 mg-acetaminophen 325 mg tablet RxNorm: 896060 1-2 Tablet(s) PO Q6 as needed for pain 09/21/2017 10/20/2017 Inactive Kenalog 40 mg/mL suspension for injection RxNorm: 9053966 Milliliter(s) Inj 09/15/2017 09/15/2017 Inactive Keflex 500 mg capsule RxNorm: 730930 1 Capsule(s) PO TID 09/07/2017 09/16/2017 Inactive Please deliver to patient cyanocobalamin (vit B-12) 1,000 mcg/mL injection solution RxNorm: 298327 Milliliter(s) Inj 09/07/2017 09/07/2017 Inactive alprazolam 0.25 mg tablet RxNorm: 914376 1 Tablet(s) PO BID 09/06/2017 02/27/2018 Inactive Aricept 10 mg tablet RxNorm: 666356 1 Tablet(s) PO daily 09/06/2017 06/24/2018 Inactive hydrocodone 5 mg-acetaminophen 325 mg tablet RxNorm: 624057 1-2 Tablet(s) PO Q6 as needed for pain 08/24/2017 09/20/2017 Inactive cyanocobalamin (vit B-12) 1,000 mcg/mL injection solution RxNorm: 536537 Milliliter(s) Inj 08/24/2017 08/24/2017 Inactive Norvasc 5 mg tablet RxNorm: 561744 1 Tablet(s) PO daily 08/18/2017 04/25/2018 Inactive nystatin 100,000 unit/gram topical powder RxNorm: 790960 1 Gram(s) TOP QID 08/17/2017 08/26/2017 Inactive hydrocodone 5 mg-acetaminophen 325 mg tablet RxNorm: 305162 1-2 Tablet(s) PO Q6 as needed for pain 07/25/2017 08/23/2017 Inactive Tamiflu 75 mg capsule RxNorm: 352083 1 Capsule(s) PO BID 07/24/2017 12/11/2017 Inactive nystatin 100,000 unit/gram topical powder RxNorm: 478364 1 Gram(s) TOP QID 07/14/2017 07/22/2017 Inactive levothyroxine 125 mcg tablet RxNorm: 073401 Tablet(s) 1 Tablet(s) PO daily 07/10/2017 01/05/2018 Inactive nystatin 100,000 unit/gram topical powder RxNorm: 211716 1 Gram(s) TOP QID 07/06/2017 07/13/2017 Inactive cyanocobalamin (vit B-12) 1,000 mcg/mL injection solution RxNorm: 207801 Milliliter(s) Inj 07/06/2017 07/06/2017 Inactive Kenalog 40 mg/mL suspension for injection RxNorm: 4824132 1 Milliliter(s) Inj 06/20/2017 06/20/2017 Inactive doxycycline hyclate 100 mg capsule RxNorm: 3990463 1 Capsule(s) PO BID 06/20/2017 06/26/2017 Inactive cyanocobalamin (vit B-12) 1,000 mcg/mL injection solution RxNorm: 136958 Milliliter(s) Inj 06/20/2017 06/20/2017 Inactive Keflex 500 mg capsule RxNorm: 083609 1 Capsule(s) PO TID 06/14/2017 06/23/2017 Inactive Please deliver to patient Mobic 15 mg tablet RxNorm: 615067 1 Tablet(s) PO daily 06/14/2017 04/25/2018 Inactive cyanocobalamin (vit B-12) 1,000 mcg/mL injection solution RxNorm: 758412 Milliliter(s) Inj 06/05/2017 06/05/2017 Inactive buspirone 15 mg tablet RxNorm: 513544 TAKE 1 TABLET BY MOUTH TWICE DAILY 05/31/2017 04/25/2018 Inactive Generic For:BUSPAR 15MG 05/31/2017 9:19:20 AM cyanocobalamin (vit B-12) 1,000 mcg/mL injection solution RxNorm: 405212 Milliliter(s) Inj 05/25/2017 05/25/2017 Inactive hydrocodone 5 mg-acetaminophen 325 mg tablet RxNorm: 526450 1-2 Tablet(s) PO Q6 as needed for pain 05/25/2017 06/23/2017 Inactive amiodarone 200 mg tablet RxNorm: 323038 1/2 Tablet(s) PO daily 05/22/2017 No Stop Date Active cardiology decreased to 100mg daily cyanocobalamin (vit B-12) 1,000 mcg/mL injection solution RxNorm: 969858 Milliliter(s) Inj 05/16/2017 05/16/2017 Inactive Zofran ODT 4 mg disintegrating tablet RxNorm: 406651 1 Tablet(s) PO TID as needed 05/03/2017 05/04/2017 Inactive hydrocodone 5 mg-acetaminophen 325 mg tablet RxNorm: 200537 1-2 Tablet(s) PO Q6 as needed for pain 05/01/2017 05/05/2017 Inactive cyanocobalamin (vit B-12) 1,000 mcg/mL injection solution RxNorm: 873336 1 Milliliter(s) Inj 05/01/2017 05/01/2017 Inactive cyanocobalamin (vit B-12) 1,000 mcg/mL injection solution RxNorm: 167521 INJECT ONE 1 ML EVERY TWO WEEKS 04/26/2017 12/04/2018 Active 04/26/2017 9:08:52 AM Zoloft 50 mg tablet RxNorm: 356593 Tablet(s) TAKE 1 TABLET BY MOUTH DAILY 04/25/2017 10/12/2017 Inactive Generic For:ZOLOFT 50MG cyanocobalamin (vit B-12) 1,000 mcg/mL injection solution RxNorm: 590216 Milliliter(s) Inj 04/18/2017 04/18/2017 Inactive liothyronine 5 mcg tablet RxNorm: 203912 1 Tablet(s) PO BID 04/13/2017 10/02/2017 Inactive cyanocobalamin (vit B-12) 1,000 mcg/mL injection solution RxNorm: 461682 Milliliter(s) Inj 04/06/2017 04/06/2017 Inactive hydrocodone 5 mg-acetaminophen 325 mg tablet RxNorm: 211552 1-2 Tablet(s) PO Q6 as needed for pain 04/06/2017 04/10/2017 Inactive cyanocobalamin (vit B-12) 1,000 mcg/mL injection solution RxNorm: 664366 Milliliter(s) Inj 03/22/2017 03/22/2017 Inactive alprazolam 0.25 mg tablet RxNorm: 313377 1 Tablet(s) PO BID 03/17/2017 12/11/2017 Inactive alprazolam 0.25 mg tablet RxNorm: 728065 1 Tablet(s) PO BID 03/16/2017 09/05/2017 Inactive hydrocodone 5 mg-acetaminophen 325 mg tablet RxNorm: 070786 1-2 Tablet(s) PO Q6 as needed for pain 03/09/2017 03/13/2017 Inactive cyanocobalamin (vit B-12) 1,000 mcg/mL injection solution RxNorm: 734968 Milliliter(s) Inj 03/09/2017 03/09/2017 Inactive cyanocobalamin (vit B-12) 1,000 mcg/mL injection solution RxNorm: 448031 Milliliter(s) Inj 02/23/2017 02/23/2017 Inactive cyanocobalamin (vit B-12) 1,000 mcg/mL injection solution RxNorm: 634118 Milliliter(s) Inj 02/09/2017 02/09/2017 Inactive hydrocodone 5 mg-acetaminophen 325 mg tablet RxNorm: 894090 1-2 Tablet(s) PO Q6 as needed for pain 02/08/2017 02/12/2017 Inactive Topamax 25 mg tablet RxNorm: 519121 1 Tablet(s) PO BID 01/23/2017 05/22/2017 Inactive Generic For:TOPAMAX 25MG 12/06/2016 9:15:13 AM cyanocobalamin (vit B-12) 1,000 mcg/mL injection solution RxNorm: 840795 Milliliter(s) Inj 01/23/2017 01/23/2017 Inactive cyanocobalamin (vit B-12) 1,000 mcg/mL injection solution RxNorm: 809091 Milliliter(s) Inj 01/10/2017 01/10/2017 Inactive hydrocodone 5 mg-acetaminophen 325 mg tablet RxNorm: 914633 1-2 Tablet(s) PO Q6 as needed for pain 01/09/2017 01/13/2017 Inactive cyanocobalamin (vit B-12) 1,000 mcg/mL injection solution RxNorm: 924362 1 Milliliter(s) Inj 12/28/2016 12/28/2016 Inactive cyanocobalamin (vit B-12) 1,000 mcg/mL injection solution RxNorm: 452632 Milliliter(s) Inj 12/14/2016 12/14/2016 Inactive buspirone 15 mg tablet RxNorm: 803044 1 Tablet(s) PO BID 12/12/2016 05/30/2017 Inactive hydrocodone 5 mg-acetaminophen 325 mg tablet RxNorm: 285992 1-2 Tablet(s) PO Q6 as needed for pain 12/08/2016 12/12/2016 Inactive Topamax 25 mg tablet RxNorm: 960418 TAKE 1 TABLET BY MOUTH EVERY DAY AT BEDTIME 12/06/2016 01/22/2017 Inactive Generic For:TOPAMAX 25MG 12/06/2016 9:15:13 AM Lac-Hydrin Five 5 % lotion RxNorm: 460664 1 Gram(s) TOP daily 12/02/2016 05/02/2018 Inactive cyanocobalamin (vit B-12) 1,000 mcg/mL injection solution RxNorm: 109288 Milliliter(s) Inj 11/24/2016 11/24/2016 Inactive Ceftin 500 mg tablet RxNorm: 493898 1 Tablet(s) PO BID 11/11/2016 06/13/2017 Inactive Cipro 500 mg tablet RxNorm: 667918 1 Tablet(s) PO BID 11/11/2016 11/10/2016 Inactive Cipro 500 mg tablet RxNorm: 117052 1 Tablet(s) PO BID 11/11/2016 11/11/2016 Inactive cyanocobalamin (vit B-12) 1,000 mcg/mL injection solution RxNorm: 308375 1 Milliliter(s) Inj 11/07/2016 11/07/2016 Inactive hydrocodone 5 mg-acetaminophen 325 mg tablet RxNorm: 888045 1-2 Tablet(s) PO Q6 as needed for pain 11/02/2016 11/06/2016 Inactive cyanocobalamin (vit B-12) 1,000 mcg/mL injection solution RxNorm: 426031 Milliliter(s) Inj 10/24/2016 10/24/2016 Inactive levothyroxine 125 mcg tablet RxNorm: 672998 Tablet(s) 1 Tablet(s) PO daily 10/24/2016 04/21/2017 Inactive liothyronine 5 mcg tablet RxNorm: 698508 1 Tablet(s) PO BID 10/24/2016 04/12/2017 Inactive hydrocodone 5 mg-acetaminophen 325 mg tablet RxNorm: 432989 1-2 Tablet(s) PO Q6 as needed for pain 10/17/2016 10/21/2016 Inactive Keflex 500 mg capsule RxNorm: 851758 1 Capsule(s) PO TID 10/07/2016 10/06/2016 Inactive Keflex 500 mg capsule RxNorm: 940113 1 Capsule(s) PO TID 10/07/2016 10/16/2016 Inactive Please deliver to patient cyanocobalamin (vit B-12) 1,000 mcg/mL injection solution RxNorm: 548000 1 Milliliter(s) Inj 09/29/2016 09/29/2016 Inactive alprazolam 0.25 mg tablet RxNorm: 239020 1 Tablet(s) PO BID 09/20/2016 03/16/2017 Inactive Cozaar 100 mg tablet RxNorm: 028424 1 Tablet(s) PO daily 09/14/2016 No Stop Date Active metoprolol tartrate 50 mg tablet RxNorm: 085905 1/2 Tablet(s) PO BID 09/14/2016 12/12/2016 Inactive Zoloft 50 mg tablet RxNorm: 162054 Tablet(s) TAKE 1 TABLET BY MOUTH DAILY 09/14/2016 03/12/2017 Inactive Generic For:ZOLOFT 50MG liothyronine 5 mcg tablet RxNorm: 603300 1 Tablet(s) PO BID 09/14/2016 10/23/2016 Inactive Calmoseptine 0.44 %-20.6 % topical ointment RxNorm: 946993 1 Application TOP BID and as needed to sore on buttocks 09/07/2016 No Stop Date Active cyanocobalamin (vit B-12) 1,000 mcg/mL injection solution RxNorm: 750615 Milliliter(s) Inj 08/29/2016 08/29/2016 Inactive hydrocodone 5 mg-acetaminophen 325 mg tablet RxNorm: 726318 1-2 Tablet(s) PO Q6 as needed for pain 08/29/2016 10/16/2016 Inactive levothyroxine 125 mcg tablet RxNorm: 571903 1 Tablet(s) PO daily 08/25/2016 10/23/2016 Inactive Topamax 25 mg tablet RxNorm: 333554 TAKE 1 TABLET BY MOUTH EVERY DAY AT BEDTIME 08/17/2016 12/05/2016 Inactive Generic For:TOPAMAX 25MG 08/17/2016 2:14:37 PM hydrocodone 5 mg-acetaminophen 325 mg tablet RxNorm: 413260 1-2 Tablet(s) PO Q6 as needed for pain 08/11/2016 08/28/2016 Inactive hydrocodone 5 mg-acetaminophen 325 mg tablet RxNorm: 518588 1 -2 Tablet(s) PO Q6 as needed for pain 08/11/2016 08/18/2016 Inactive hydrocodone 5 mg-acetaminophen 325 mg tablet RxNorm: 398777 1 Tablet(s) PO Q6 as needed for pain 08/05/2016 08/10/2016 Inactive cyanocobalamin (vit B-12) 1,000 mcg/mL injection solution RxNorm: 522225 Milliliter(s) Inj 08/04/2016 08/04/2016 Inactive Norvasc 10 mg tablet RxNorm: 278497 1 Tablet(s) PO daily 07/26/2016 07/20/2017 Inactive alprazolam 0.25 mg tablet RxNorm: 116104 1 Tablet(s) PO QHS 07/21/2016 09/19/2016 Inactive Norvasc 5 mg tablet RxNorm: 589641 1 Tablet(s) PO daily 07/21/2016 07/25/2016 Inactive levothyroxine 125 mcg tablet RxNorm: 932235 1 Tablet(s) PO daily 07/21/2016 12/11/2017 Inactive cyanocobalamin (vit B-12) 1,000 mcg/mL injection solution RxNorm: 963616 Milliliter(s) Inj 07/21/2016 07/21/2016 Inactive Zoloft 50 mg tablet RxNorm: 118172 Tablet(s) TAKE 1 TABLET BY MOUTH DAILY 07/21/2016 09/13/2016 Inactive Generic For:ZOLOFT 50MG cyanocobalamin (vit B-12) 1,000 mcg/mL injection solution RxNorm: 632315 1 Milliliter(s) Inj 07/05/2016 07/05/2016 Inactive cyanocobalamin (vit B-12) 1,000 mcg/mL injection solution RxNorm: 455405 1 Milliliter(s) Inj 06/22/2016 06/22/2016 Inactive cyanocobalamin (vit B-12) 1,000 mcg/mL injection solution RxNorm: 625234 Milliliter(s) Inj 06/09/2016 06/09/2016 Inactive Aricept 10 mg tablet RxNorm: 348152 1 Tablet(s) PO daily 05/27/2016 05/21/2017 Inactive Mobic 15 mg tablet RxNorm: 948335 1 Tablet(s) PO daily 05/27/2016 05/21/2017 Inactive levothyroxine 125 mcg tablet RxNorm: 146625 1 Tablet(s) PO daily 05/25/2016 07/20/2016 Inactive cyanocobalamin (vit B-12) 1,000 mcg/mL injection solution RxNorm: 253618 1 Milliliter(s) Inj 05/25/2016 05/25/2016 Inactive doxycycline hyclate 100 mg capsule RxNorm: 4908811 1 Capsule(s) PO BID 05/16/2016 05/15/2016 Inactive doxycycline hyclate 100 mg capsule RxNorm: 9973458 1 Capsule(s) PO BID 05/16/2016 05/22/2016 Inactive cyanocobalamin (vit B-12) 1,000 mcg/mL injection solution RxNorm: 137107 Milliliter(s) Inj 05/10/2016 05/10/2016 Inactive cyanocobalamin (vit B-12) 1,000 mcg/mL injection solution RxNorm: 152867 Milliliter(s) Inj 04/26/2016 04/26/2016 Inactive Topamax 25 mg tablet RxNorm: 443024 1 Tablet(s) PO QPM 04/22/2016 08/16/2016 Inactive cyanocobalamin (vit B-12) 1,000 mcg/mL injection solution RxNorm: 626696 Milliliter(s) 1 Milliliter(s) Inj [id number] 04/11/2016 12/31/2017 Inactive liothyronine 5 mcg tablet RxNorm: 527901 1 Tablet(s) PO BID 04/11/2016 09/13/2016 Inactive cyanocobalamin (vit B-12) 1,000 mcg/mL injection solution RxNorm: 779801 Milliliter(s) Inj 04/11/2016 04/11/2016 Inactive cyanocobalamin (vit B-12) 1,000 mcg/mL injection solution RxNorm: 948918 Milliliter(s) Inj 03/31/2016 03/31/2016 Inactive cyanocobalamin (vit B-12) 1,000 mcg/mL injection solution RxNorm: 647752 1 Milliliter(s) Inj 03/15/2016 03/15/2016 Inactive levothyroxine 125 mcg tablet RxNorm: 672987 1 Tablet(s) PO daily 2016 03/03/2016 Inactive levothyroxine 125 mcg tablet RxNorm: 499896 1 Tablet(s) PO daily 2016 05/24/2016 Inactive cyanocobalamin (vit B-12) 1,000 mcg/mL injection solution RxNorm: 610084 Milliliter(s) Inj 02/25/2016 02/25/2016 Inactive cyanocobalamin (vit B-12) 1,000 mcg/mL injection solution RxNorm: 121694 1 Milliliter(s) Inj 02/02/2016 02/02/2016 Inactive sucralfate 1 gram tablet RxNorm: 901539 1 Tablet(s) PO QHS 01/25/2016 No Stop Date Active amiodarone 200 mg tablet RxNorm: 261439 1/2 Tablet(s) PO BID 01/25/2016 05/21/2017 Inactive cyanocobalamin (vit B-12) 1,000 mcg/mL injection solution RxNorm: 086670 Milliliter(s) Inj 01/18/2016 01/18/2016 Inactive cyanocobalamin (vit B-12) 1,000 mcg/mL injection solution RxNorm: 242375 Milliliter(s) Inj 12/29/2015 12/29/2015 Inactive Topamax 25 mg tablet RxNorm: 944938 1 Tablet(s) PO QPM 12/08/2015 04/05/2016 Inactive cyanocobalamin (vit B-12) 1,000 mcg/mL injection solution RxNorm: 052352 Milliliter(s) Inj 12/08/2015 12/08/2015 Inactive Bactrim DS 800 mg-160 mg tablet RxNorm: 936563 1 Tablet(s) PO BID 11/23/2015 11/22/2015 Inactive cyanocobalamin (vit B-12) 1,000 mcg/mL injection solution RxNorm: 117745 Milliliter(s) Inj 11/23/2015 11/23/2015 Inactive Bactrim DS 800 mg-160 mg tablet RxNorm: 604302 1 Tablet(s) PO BID 11/23/2015 11/29/2015 Inactive cyanocobalamin (vit B-12) 1,000 mcg/mL injection solution RxNorm: 092972 Milliliter(s) Inj 11/11/2015 11/11/2015 Inactive amoxicillin 500 mg capsule RxNorm: 274984 1 Capsule(s) PO TID 11/10/2015 11/19/2015 Inactive Zithromax Z-Henrique 250 mg tablet RxNorm: 392081 1 Tablet(s) PO UD 11/10/2015 01/24/2016 Inactive zpack x 1 amoxicillin 500 mg capsule RxNorm: 736764 1 Capsule(s) PO TID 11/10/2015 11/09/2015 Inactive cyanocobalamin (vit B-12) 1,000 mcg/mL injection solution RxNorm: 081671 1 Milliliter(s) Inj 10/29/2015 10/29/2015 Inactive Martin 3 capsule RxNorm: 1 Capsule(s) PO QAM , 2 Capsules at noon, 1 Capsule QHS 10/13/2015 No Stop Date Active potassium chloride ER 20 mEq tablet,extended release RxNorm: 780146 2 Tablet(s) PO daily at noon 10/13/2015 No Stop Date Active alprazolam 0.25 mg tablet RxNorm: 074669 1 Tablet(s) PO QHS 10/13/2015 07/20/2016 Inactive amiodarone 200 mg tablet RxNorm: 985795 1 Tablet(s) PO BID 10/13/2015 01/24/2016 Inactive cyanocobalamin (vit B-12) 1,000 mcg/mL injection solution RxNorm: 468773 1 Milliliter(s) Inj 10/12/2015 10/12/2015 Inactive Zofran 4 mg tablet RxNorm: 172319 1 Tablet(s) PO daily as needed 10/07/2015 05/24/2016 Inactive Zoloft 50 mg tablet RxNorm: 999236 TAKE 1 TABLET BY MOUTH DAILY 10/05/2015 05/01/2016 Inactive Generic For:ZOLOFT 50MG cyanocobalamin (vit B-12) 1,000 mcg/mL injection solution RxNorm: 862181 1 Milliliter(s) Inj 09/29/2015 09/29/2015 Inactive cyanocobalamin (vit B-12) 1,000 mcg/mL injection solution RxNorm: 844114 1 Milliliter(s) Inj 09/17/2015 09/17/2015 Inactive Norvasc 5 mg tablet RxNorm: 249225 1 Tablet(s) PO daily 09/17/2015 07/20/2016 Inactive liothyronine 5 mcg tablet RxNorm: 527598 1 Tablet(s) PO BID 09/17/2015 03/14/2016 Inactive Zoloft 50 mg tablet RxNorm: 210712 1 Tablet(s) PO daily 09/17/2015 10/04/2015 Inactive buspirone 15 mg tablet RxNorm: 585681 1 Tablet(s) PO BID 09/17/2015 09/10/2016 Inactive buspirone 15 mg tablet RxNorm: 355302 1 Tablet(s) PO BID 09/14/2015 09/16/2015 Inactive Topamax 25 mg tablet RxNorm: 504989 1 Tablet(s) PO QPM 09/03/2015 12/07/2015 Inactive cyanocobalamin (vit B-12) 1,000 mcg/mL injection solution RxNorm: 140666 1 Milliliter(s) Inj 09/03/2015 09/03/2015 Inactive cyanocobalamin (vit B-12) 1,000 mcg/mL injection solution RxNorm: 267785 Milliliter(s) Inj 08/17/2015 08/17/2015 Inactive cyanocobalamin (vit B-12) 1,000 mcg/mL injection solution RxNorm: 200356 Milliliter(s) Inj 08/06/2015 08/06/2015 Inactive levothyroxine 150 mcg tablet RxNorm: 245226 1 Tablet(s) PO daily 07/22/2015 03/03/2016 Inactive Aricept 10 mg tablet RxNorm: 482657 1 Tablet(s) PO daily 07/22/2015 05/26/2016 Inactive Mobic 15 mg tablet RxNorm: 153289 1 Tablet(s) PO daily 07/22/2015 05/26/2016 Inactive cyanocobalamin (vit B-12) 1,000 mcg/mL injection solution RxNorm: 618645 Milliliter(s) Inj 07/22/2015 07/22/2015 Inactive liothyronine 5 mcg tablet RxNorm: 909440 1 Tablet(s) PO BID 07/22/2015 09/16/2015 Inactive cyanocobalamin (vit B-12) 1,000 mcg/mL injection solution RxNorm: 232205 Milliliter(s) Inj 07/08/2015 07/08/2015 Inactive cyanocobalamin (vit B-12) 1,000 mcg/mL injection solution RxNorm: 360227 Milliliter(s) Inj 06/23/2015 06/23/2015 Inactive cyanocobalamin (vit B-12) 1,000 mcg/mL injection solution RxNorm: 612118 1 Milliliter(s) Inj 06/08/2015 06/08/2015 Inactive cyanocobalamin (vit B-12) 1,000 mcg/mL injection solution RxNorm: 470246 Milliliter(s) Inj 05/27/2015 05/27/2015 Inactive Aricept 10 mg tablet RxNorm: 594500 1 Tablet(s) PO daily 05/20/2015 07/21/2015 Inactive Zofran 4 mg tablet RxNorm: 592397 1 Tablet(s) PO daily as needed 05/20/2015 06/18/2015 Inactive alprazolam 0.25 mg tablet RxNorm: 824055 1 Tablet(s) PO BID 05/20/2015 10/12/2015 Inactive Mobic 15 mg tablet RxNorm: 567555 1 Tablet(s) PO daily 05/20/2015 07/21/2015 Inactive tramadol ER 100 mg tablet,extended release 24 hr RxNorm: 046162 1 Tablet(s) PO Q6 as needed 05/13/2015 No Stop Date Active cyanocobalamin (vit B-12) 1,000 mcg/mL injection solution RxNorm: 603192 1 Milliliter(s) Inj 05/12/2015 05/12/2015 Inactive Topamax 25 mg tablet RxNorm: 833111 1 Tablet(s) PO BID (start at one pill at bedtime x 1week then twice daily thereafter) 05/12/2015 09/02/2015 Inactive cyanocobalamin (vit B-12) 1,000 mcg/mL injection kit RxNorm: 800618 kit Inj 04/30/2015 04/30/2015 Inactive cyanocobalamin (vit B-12) 1,000 mcg/mL injection solution RxNorm: 155856 Milliliter(s) Inj 04/16/2015 04/16/2015 Inactive levothyroxine 150 mcg tablet RxNorm: 211798 1 Tablet(s) PO daily 04/08/2015 07/21/2015 Inactive cyanocobalamin (vit B-12) 1,000 mcg/mL injection solution RxNorm: 472656 Milliliter(s) 1 Milliliter(s) Inj D6cesbd 04/08/2015 04/10/2016 Inactive Cytomel 5 mcg tablet RxNorm: 553500 1 Tablet(s) PO BID 04/08/2015 10/12/2015 Inactive Cytomel 5 mcg tablet RxNorm: 403772 1 Tablet(s) PO BID 04/07/2015 04/07/2015 Inactive Cytomel 5 mcg tablet RxNorm: 188188 1 Tablet(s) PO BID 04/07/2015 04/06/2015 Inactive cyanocobalamin (vit B-12) 1,000 mcg/mL injection solution RxNorm: 460925 Milliliter(s) Inj 04/02/2015 04/02/2015 Inactive cyanocobalamin (vit B-12) 1,000 mcg/mL injection solution RxNorm: 852432 Milliliter(s) Inj 03/18/2015 03/18/2015 Inactive cyanocobalamin (vit B-12) 1,000 mcg/mL injection solution RxNorm: 904434 Milliliter(s) 1 Milliliter(s) Inj X2sniso 03/18/2015 04/07/2015 Inactive cyanocobalamin (vit B-12) 1,000 mcg/mL injection solution RxNorm: 891677 1 Milliliter(s) Inj H0ywyot 03/16/2015 03/17/2015 Inactive cyanocobalamin (vit B-12) 1,000 mcg/mL injection solution RxNorm: 387811 Milliliter(s) Inj 03/03/2015 03/03/2015 Inactive cyanocobalamin (vit B-12) 1,000 mcg/mL injection solution RxNorm: 715333 Milliliter(s) Inj 02/18/2015 02/18/2015 Inactive cyanocobalamin (vit B-12) 1,000 mcg/mL injection solution RxNorm: 712862 Milliliter(s) Inj 02/04/2015 02/04/2015 Inactive cyanocobalamin (vit B-12) 1,000 mcg/mL injection solution RxNorm: 182587 Milliliter(s) Inj 01/22/2015 01/22/2015 Inactive Lac-Hydrin Five 5 % lotion RxNorm: 210383 1 TOP daily 01/13/2015 03/13/2015 Inactive Lac-Hydrin Five 5 % lotion RxNorm: 235296 1 TOP daily 01/13/2015 01/12/2015 Inactive cyanocobalamin (vit B-12) 1,000 mcg/mL injection solution RxNorm: 567791 Milliliter(s) Inj 01/08/2015 01/08/2015 Inactive cyanocobalamin (vit B-12) 1,000 mcg/mL injection solution RxNorm: 284591 Milliliter(s) Inj 12/25/2014 12/25/2014 Inactive levothyroxine 150 mcg tablet RxNorm: 741190 1 Tablet(s) PO daily 12/24/2014 04/07/2015 Inactive tramadol 50 mg tablet RxNorm: 591189 1-2 Tablet(s) PO Q6 as needed 12/17/2014 05/12/2015 Inactive alprazolam 0.25 mg tablet RxNorm: 858884 1 Tablet(s) PO BID 12/17/2014 04/15/2015 Inactive Pradaxa 150 mg capsule RxNorm: 9227115 1 Capsule(s) PO BID 12/16/2014 No Stop Date Active metoprolol tartrate 50 mg tablet RxNorm: 491779 1/2 Tablet(s) PO BID 12/16/2014 09/13/2016 Inactive buspirone 15 mg tablet RxNorm: 303096 1 Tablet(s) PO BID 12/16/2014 09/13/2015 Inactive cyanocobalamin (vit B-12) 1,000 mcg/mL injection solution RxNorm: 564166 1 Milliliter(s) Inj P3kzfaw 12/16/2014 03/15/2015 Inactive cyanocobalamin (vit B-12) 1,000 mcg/mL injection solution RxNorm: 782838 1 Milliliter(s) Inj O6tkskr 12/16/2014 12/15/2014 Inactive sucralfate 1 gram tablet RxNorm: 931730 Tablet(s) PO QID 12/16/2014 12/10/2015 Inactive cyanocobalamin (vit B-12) 1,000 mcg/mL injection solution RxNorm: 483804 Milliliter(s) Inj 12/10/2014 12/10/2014 Inactive cyanocobalamin (vit B-12) 1,000 mcg/mL injection solution RxNorm: 185168 Milliliter(s) Inj 11/26/2014 11/26/2014 Inactive Zoloft 50 mg tablet RxNorm: 139237 1 Tablet(s) PO daily 11/24/2014 06/21/2015 Inactive Zoloft 50 mg tablet RxNorm: 521912 1 Tablet(s) PO daily 11/24/2014 11/23/2014 Inactive cyanocobalamin (vit B-12) 1,000 mcg/mL injection kit RxNorm: 312198 Milliliter(s) Inj 11/12/2014 11/12/2014 Inactive cyanocobalamin (vit B-12) 1,000 mcg/mL injection solution RxNorm: 040051 Milliliter(s) Inj 10/28/2014 10/28/2014 Inactive [SAVINGS FOR NON-COVERED DRUGS -- [id number], PCN: [id number], Group: [id number], ID# [id number], Questions: . THIS IS NOT INSURANCE.] promethazine oral RxNorm: 8745 oral No Start Date Active tramadol 50 mg tablet RxNorm: 162228 1 Tablet(s) PO TID No Start Date Active digoxin 125 mcg tablet RxNorm: 804284 Tablet(s) PO every other day No Start Date Active furosemide 40 mg tablet RxNorm: 117089 1 Tablet(s) PO daily No Start Date Active Vitamin D3 5,000 unit tablet RxNorm: 943954 1 Tablet(s) PO daily No Start Date Active erythromycin 250 mg capsule,delayed release RxNorm: 218548 1 Capsule(s) PO AC No Start Date Active Protonix 40 mg tablet,delayed release RxNorm: 716474 1 Tablet(s) PO BID No Start Date Active Cozaar 100 mg tablet RxNorm: 628406 1 Tablet(s) PO daily No Start Date 09/13/2016 Inactive sucralfate 1 gram tablet RxNorm: 340974 Tablet(s) PO QID No Start Date 12/15/2014 Inactive amiodarone 200 mg tablet RxNorm: 401702 2 Tablet(s) PO daily No Start Date 10/13/2015 Inactive buspirone 15 mg tablet RxNorm: 382144 1 Tablet(s) PO daily No Start Date 12/15/2014 Inactive potassium chloride ER 20 mEq tablet,extended release RxNorm: 581067 1 Tablet(s) PO daily No Start Date 10/12/2015 Inactive Prilosec 40 mg capsule,delayed release RxNorm: 617858 1 Capsule(s) PO daily No Start Date 09/02/2015 Inactive Martin 3 capsule RxNorm: Capsule(s) PO No Start Date 10/12/2015 Inactive alprazolam 0.25 mg tablet RxNorm: 931165 Tablet(s) PO QHS No Start Date 12/16/2014 Inactive levothyroxine 125 mcg tablet RxNorm: 484209 1 Tablet(s) PO daily No Start Date 12/23/2014 Inactive liothyronine 5 mcg tablet RxNorm: 565405 1 Tablet(s) PO BID No Start Date 07/21/2015 Inactive Mobic 15 mg tablet RxNorm: 465321 Tablet(s) PO daily No Start Date 05/19/2015 Inactive Norvasc 5 mg tablet RxNorm: 389458 1 Tablet(s) PO daily No Start Date 09/16/2015 Inactive Zofran 4 mg tablet RxNorm: 940067 1 Tablet(s) PO daily as needed No Start Date 05/19/2015 Inactive Tamiflu 75 mg capsule RxNorm: 340600 1 Capsule(s) PO BID No Start Date 07/23/2017 Inactive tramadol 50 mg tablet RxNorm: 145110 1 Tablet(s) PO daily as needed No Start Date 12/16/2014 Inactive amiodarone 200 mg tablet RxNorm: 382023 1 Tablet(s) PO daily No Start Date 10/12/2015 Inactive Zofran ODT 4 mg disintegrating tablet RxNorm: 907122 1 Tablet(s) PO TID as needed No Start Date 05/02/2017 Inactive albuterol sulfate 2.5 mg/3 mL (0.083 %) solution for nebulization RxNorm: 678535 3 Milliliter(s) INH Q6 PRN No Start Date 09/20/2017 Inactive meclizine 25 mg tablet RxNorm: 389404 Tablet(s) PO as needed No Start Date 05/24/2016 Inactive Pradaxa 150 mg capsule RxNorm: 3835936 1 Capsule(s) PO daily No Start Date 12/15/2014 Inactive metoprolol tartrate 50 mg tablet RxNorm: 430899 1/2 Tablet(s) PO No Start Date 12/15/2014 Inactive Aricept 10 mg tablet RxNorm: 102109 Tablet(s) PO daily No Start Date 05/19/2015 Inactive Calmoseptine 0.44 %-20.6 % topical ointment RxNorm: 291122 1 Application TOP BID and as needed to sore on buttocks No Start Date 09/06/2016 Inactive Zithromax Z-Henrique 250 mg tablet RxNorm: 121428 1 Tablet(s) PO UD No Start Date 11/09/2015 Inactive zpack x 1 Medication Administered Medication Codes Instructions Start Date Status cyanocobalamin (vit B-12) 1,000 mcg/mL injection solution RxNorm: 379619 Milliliter 08/29/2018 No longer Active cyanocobalamin (vit B-12) 1,000 mcg/mL injection solution RxNorm: 552990 Milliliter 08/15/2018 No longer Active Kenalog 40 mg/mL suspension for injection RxNorm: 9425869 Milliliter 08/15/2018 No longer Active cyanocobalamin (vit B-12) 1,000 mcg/mL injection solution RxNorm: 756141 Milliliter 08/01/2018 No longer Active cyanocobalamin (vit B-12) 1,000 mcg/mL injection solution RxNorm: 709867 Milliliter 07/19/2018 No longer Active cyanocobalamin (vit B-12) 1,000 mcg/mL injection solution RxNorm: 107869 Milliliter 07/04/2018 No longer Active cyanocobalamin (vit B-12) 1,000 mcg/mL injection solution RxNorm: 945076 Milliliter 06/20/2018 No longer Active cyanocobalamin (vit B-12) 1,000 mcg/mL injection solution RxNorm: 631576 Milliliter 06/06/2018 No longer Active cyanocobalamin (vit B-12) 1,000 mcg/mL injection solution RxNorm: 505214 Milliliter 05/24/2018 No longer Active cyanocobalamin (vit B-12) 1,000 mcg/mL injection solution RxNorm: 820256 Milliliter 05/09/2018 No longer Active cyanocobalamin (vit B-12) 1,000 mcg/mL injection solution RxNorm: 399435 Milliliter 04/26/2018 No longer Active cyanocobalamin (vit B-12) 1,000 mcg/mL injection solution RxNorm: 783222 Milliliter 04/12/2018 No longer Active cyanocobalamin (vit B-12) 1,000 mcg/mL injection solution RxNorm: 530369 Milliliter 03/30/2018 No longer Active cyanocobalamin (vit B-12) 1,000 mcg/mL injection solution RxNorm: 277970 Milliliter 03/16/2018 No longer Active cyanocobalamin (vit B-12) 1,000 mcg/mL injection solution RxNorm: 361783 Milliliter 03/02/2018 No longer Active cyanocobalamin (vit B-12) 1,000 mcg/mL injection solution RxNorm: 627724 Milliliter 02/08/2018 No longer Active cyanocobalamin (vit B-12) 1,000 mcg/mL injection solution RxNorm: 980493 Milliliter 01/24/2018 No longer Active cyanocobalamin (vit B-12) 1,000 mcg/mL injection solution RxNorm: 594791 Milliliter 01/10/2018 No longer Active cyanocobalamin (vit B-12) 1,000 mcg/mL injection solution RxNorm: 516872 Milliliter 12/27/2017 No longer Active cyanocobalamin (vit B-12) 1,000 mcg/mL injection solution RxNorm: 283918 1Milliliter 12/12/2017 No longer Active cyanocobalamin (vit B-12) 1,000 mcg/mL injection solution RxNorm: 677392 Milliliter 12/01/2017 No longer Active cyanocobalamin (vit B-12) 1,000 mcg/mL injection solution RxNorm: 847206 1Milliliter 11/17/2017 No longer Active cyanocobalamin (vit B-12) 1,000 mcg/mL injection solution RxNorm: 883157 1Milliliter 11/02/2017 No longer Active cyanocobalamin (vit B-12) 1,000 mcg/mL injection solution RxNorm: 324391 1Milliliter 10/20/2017 No longer Active cyanocobalamin (vit B-12) 1,000 mcg/mL injection solution RxNorm: 145821 Milliliter 10/06/2017 No longer Active cyanocobalamin (vit B-12) 1,000 mcg/mL injection solution RxNorm: 464171 Milliliter 09/21/2017 No longer Active Kenalog 40 mg/mL suspension for injection RxNorm: 4955608 Milliliter 09/15/2017 No longer Active cyanocobalamin (vit B-12) 1,000 mcg/mL injection solution RxNorm: 392965 Milliliter 09/07/2017 No longer Active cyanocobalamin (vit B-12) 1,000 mcg/mL injection solution RxNorm: 278567 Milliliter 08/24/2017 No longer Active cyanocobalamin (vit B-12) 1,000 mcg/mL injection solution RxNorm: 890172 Milliliter 07/06/2017 No longer Active Kenalog 40 mg/mL suspension for injection RxNorm: 4798487 1Milliliter 06/20/2017 No longer Active cyanocobalamin (vit B-12) 1,000 mcg/mL injection solution RxNorm: 887954 Milliliter 06/20/2017 No longer Active cyanocobalamin (vit B-12) 1,000 mcg/mL injection solution RxNorm: 528011 Milliliter 06/05/2017 No longer Active cyanocobalamin (vit B-12) 1,000 mcg/mL injection solution RxNorm: 987121 Milliliter 05/25/2017 No longer Active cyanocobalamin (vit B-12) 1,000 mcg/mL injection solution RxNorm: 814007 Milliliter 05/16/2017 No longer Active cyanocobalamin (vit B-12) 1,000 mcg/mL injection solution RxNorm: 423647 1Milliliter 05/01/2017 No longer Active cyanocobalamin (vit B-12) 1,000 mcg/mL injection solution RxNorm: 578267 Milliliter 04/18/2017 No longer Active cyanocobalamin (vit B-12) 1,000 mcg/mL injection solution RxNorm: 209071 Milliliter 04/06/2017 No longer Active cyanocobalamin (vit B-12) 1,000 mcg/mL injection solution RxNorm: 589134 Milliliter 03/22/2017 No longer Active cyanocobalamin (vit B-12) 1,000 mcg/mL injection solution RxNorm: 899223 Milliliter 03/09/2017 No longer Active cyanocobalamin (vit B-12) 1,000 mcg/mL injection solution RxNorm: 031549 Milliliter 02/23/2017 No longer Active cyanocobalamin (vit B-12) 1,000 mcg/mL injection solution RxNorm: 676233 Milliliter 02/09/2017 No longer Active cyanocobalamin (vit B-12) 1,000 mcg/mL injection solution RxNorm: 592220 Milliliter 01/23/2017 No longer Active cyanocobalamin (vit B-12) 1,000 mcg/mL injection solution RxNorm: 712456 Milliliter 01/10/2017 No longer Active cyanocobalamin (vit B-12) 1,000 mcg/mL injection solution RxNorm: 654217 1Milliliter 12/28/2016 No longer Active cyanocobalamin (vit B-12) 1,000 mcg/mL injection solution RxNorm: 306420 Milliliter 12/14/2016 No longer Active cyanocobalamin (vit B-12) 1,000 mcg/mL injection solution RxNorm: 801859 Milliliter 11/24/2016 No longer Active cyanocobalamin (vit B-12) 1,000 mcg/mL injection solution RxNorm: 281420 1Milliliter 11/07/2016 No longer Active cyanocobalamin (vit B-12) 1,000 mcg/mL injection solution RxNorm: 639475 Milliliter 10/24/2016 No longer Active cyanocobalamin (vit B-12) 1,000 mcg/mL injection solution RxNorm: 434053 1Milliliter 09/29/2016 No longer Active cyanocobalamin (vit B-12) 1,000 mcg/mL injection solution RxNorm: 053492 Milliliter 08/29/2016 No longer Active cyanocobalamin (vit B-12) 1,000 mcg/mL injection solution RxNorm: 689632 Milliliter 08/04/2016 No longer Active cyanocobalamin (vit B-12) 1,000 mcg/mL injection solution RxNorm: 138533 Milliliter 07/21/2016 No longer Active cyanocobalamin (vit B-12) 1,000 mcg/mL injection solution RxNorm: 932215 1Milliliter 07/05/2016 No longer Active cyanocobalamin (vit B-12) 1,000 mcg/mL injection solution RxNorm: 202814 1Milliliter 06/22/2016 No longer Active cyanocobalamin (vit B-12) 1,000 mcg/mL injection solution RxNorm: 180490 Milliliter 06/09/2016 No longer Active cyanocobalamin (vit B-12) 1,000 mcg/mL injection solution RxNorm: 247774 1Milliliter 05/25/2016 No longer Active cyanocobalamin (vit B-12) 1,000 mcg/mL injection solution RxNorm: 020209 Milliliter 05/10/2016 No longer Active cyanocobalamin (vit B-12) 1,000 mcg/mL injection solution RxNorm: 837651 Milliliter 04/26/2016 No longer Active cyanocobalamin (vit B-12) 1,000 mcg/mL injection solution RxNorm: 079139 Milliliter 04/11/2016 No longer Active cyanocobalamin (vit B-12) 1,000 mcg/mL injection solution RxNorm: 965933 Milliliter 03/31/2016 No longer Active cyanocobalamin (vit B-12) 1,000 mcg/mL injection solution RxNorm: 495225 1Milliliter 03/15/2016 No longer Active cyanocobalamin (vit B-12) 1,000 mcg/mL injection solution RxNorm: 334476 Milliliter 02/25/2016 No longer Active cyanocobalamin (vit B-12) 1,000 mcg/mL injection solution RxNorm: 035016 1Milliliter 02/02/2016 No longer Active cyanocobalamin (vit B-12) 1,000 mcg/mL injection solution RxNorm: 332018 Milliliter 01/18/2016 No longer Active cyanocobalamin (vit B-12) 1,000 mcg/mL injection solution RxNorm: 916723 Milliliter 12/29/2015 No longer Active cyanocobalamin (vit B-12) 1,000 mcg/mL injection solution RxNorm: 925872 Milliliter 12/08/2015 No longer Active cyanocobalamin (vit B-12) 1,000 mcg/mL injection solution RxNorm: 439845 Milliliter 11/23/2015 No longer Active cyanocobalamin (vit B-12) 1,000 mcg/mL injection solution RxNorm: 547659 Milliliter 11/11/2015 No longer Active cyanocobalamin (vit B-12) 1,000 mcg/mL injection solution RxNorm: 974197 1Milliliter 10/29/2015 No longer Active cyanocobalamin (vit B-12) 1,000 mcg/mL injection solution RxNorm: 623762 1Milliliter 10/12/2015 No longer Active cyanocobalamin (vit B-12) 1,000 mcg/mL injection solution RxNorm: 658377 1Milliliter 09/29/2015 No longer Active cyanocobalamin (vit B-12) 1,000 mcg/mL injection solution RxNorm: 040744 1Milliliter 09/17/2015 No longer Active cyanocobalamin (vit B-12) 1,000 mcg/mL injection solution RxNorm: 154445 1Milliliter 09/03/2015 No longer Active cyanocobalamin (vit B-12) 1,000 mcg/mL injection solution RxNorm: 757342 Milliliter 08/17/2015 No longer Active cyanocobalamin (vit B-12) 1,000 mcg/mL injection solution RxNorm: 099680 Milliliter 08/06/2015 No longer Active cyanocobalamin (vit B-12) 1,000 mcg/mL injection solution RxNorm: 807219 Milliliter 07/22/2015 No longer Active cyanocobalamin (vit B-12) 1,000 mcg/mL injection solution RxNorm: 519708 Milliliter 07/08/2015 No longer Active cyanocobalamin (vit B-12) 1,000 mcg/mL injection solution RxNorm: 903727 Milliliter 06/23/2015 No longer Active cyanocobalamin (vit B-12) 1,000 mcg/mL injection solution RxNorm: 894990 1Milliliter 06/08/2015 No longer Active cyanocobalamin (vit B-12) 1,000 mcg/mL injection solution RxNorm: 199780 Milliliter 05/27/2015 No longer Active cyanocobalamin (vit B-12) 1,000 mcg/mL injection solution RxNorm: 229746 1Milliliter 05/12/2015 No longer Active cyanocobalamin (vit B-12) 1,000 mcg/mL injection kit RxNorm: 501932 kit 04/30/2015 No longer Active cyanocobalamin (vit B-12) 1,000 mcg/mL injection solution RxNorm: 121041 Milliliter 04/16/2015 No longer Active cyanocobalamin (vit B-12) 1,000 mcg/mL injection solution RxNorm: 906591 Milliliter 04/02/2015 No longer Active cyanocobalamin (vit B-12) 1,000 mcg/mL injection solution RxNorm: 420869 Milliliter 03/18/2015 No longer Active cyanocobalamin (vit B-12) 1,000 mcg/mL injection solution RxNorm: 582231 Milliliter 03/03/2015 No longer Active cyanocobalamin (vit B-12) 1,000 mcg/mL injection solution RxNorm: 870796 Milliliter 02/18/2015 No longer Active cyanocobalamin (vit B-12) 1,000 mcg/mL injection solution RxNorm: 993057 Milliliter 02/04/2015 No longer Active cyanocobalamin (vit B-12) 1,000 mcg/mL injection solution RxNorm: 365336 Milliliter 01/22/2015 No longer Active cyanocobalamin (vit B-12) 1,000 mcg/mL injection solution RxNorm: 520355 Milliliter 01/08/2015 No longer Active cyanocobalamin (vit B-12) 1,000 mcg/mL injection solution RxNorm: 817778 Milliliter 12/25/2014 No longer Active cyanocobalamin (vit B-12) 1,000 mcg/mL injection solution RxNorm: 527455 Milliliter 12/10/2014 No longer Active cyanocobalamin (vit B-12) 1,000 mcg/mL injection solution RxNorm: 248184 Milliliter 11/26/2014 No longer Active cyanocobalamin (vit B-12) 1,000 mcg/mL injection kit RxNorm: 197771 Milliliter 11/12/2014 No longer Active cyanocobalamin (vit B-12) 1,000 mcg/mL injection solution RxNorm: 267730 Milliliter 10/28/2014 No longer Active Immunizations Vaccine [...] Observation Code Item Item Code Result Date Test(s) Not Perfromed [id number] Test(s) Not Performed Test(s) Not Performed. See Below: 09/10/2018 Test(s) Not Perfromed [id number] TEST NAME Microalbumin 09/10/2018 Test(s) Not Perfromed [id number] Rejection Reason Patient Unable to Void 09/10/2018 Test(s) Not Perfromed [id number] COMMENT Patient to deliver sample to the lab at a later date 09/10/2018 Test(s) Not Perfromed [id number] Research Lab Assistant Favio Mulligan 09/10/2018 Lipid Ord30 CHOL 174 mg/dL 05/29/2018 Lipid Ord30 HDL 49.0 mg/dl 05/29/2018 Lipid Ord30 TRIG 200 mg/dL 05/29/2018 Lipid Ord30 LDL 85 mg/dL 05/29/2018 Lipid Ord30 C/HDL 3.6 Ratio 05/29/2018 Tsh Ord6 TSH (3rd IS) 3.20 uIU/mL 02/26/2018 Free T4 Frn516 FREE T4 0.99 ng/dL 02/26/2018 Cbc With [...] 28.5 pg 02/26/2018 Cbc With Differential Ord2 Mayes% 10.3 % 02/26/2018 Cbc With Differential Ord2 [...] 1.80 K/ul 02/26/2018 Cbc With Differential Ord2 Mayes ABS# 0.7 K/ul 02/26/2018 Cbc With Differential Ord2 Eos ABS# 0.2 K/ul 02/26/2018 Cbc With Differential Ord2 Baso ABS# 0.0 K/ul 02/26/2018 B12 Npu057 B12 889.00 pg/ml 02/26/2018 Digoxin Ord9 DIGOXIN 0.7 NG/ML 11/23/2017 Comp Metabolic Anx981 NA 142 mEq/L 11/23/2017 Comp Metabolic Mee374 K 4.9 mEq/L 11/23/2017 Comp Metabolic Crz367 CL 112 mEq/L 11/23/2017 Comp Metabolic Chn385 CO2 18.0 mEq/L 11/23/2017 Comp Metabolic Lgu220 ANION GAP 17 11/23/2017 Comp Metabolic Vqh708 GLUCOSE 123 mg/dL 11/23/2017 Comp Metabolic Hif499 Creat 1.0 mg/dL 11/23/2017 Comp Metabolic Dmt671 eGFR 59 ml/min/1.73m2 11/23/2017 Comp Metabolic Nmr859 BUN 24 mg/dL 11/23/2017 Comp Metabolic Ijk370 B/C Ratio 25.0 Ratio 11/23/2017 Comp Metabolic Jqu887 CALCIUM 9.4 mg/dL 11/23/2017 Comp Metabolic Geb153 ALK PHOS 56 U/L 11/23/2017 Comp Metabolic Kvm888 AST(SGOT) 17 U/L 11/23/2017 Comp Metabolic Yfy124 ALT(SGPT) 16 U/L 11/23/2017 Comp Metabolic Qrk026 BILI T 0.7 mg/dL 11/23/2017 Comp Metabolic Isa228 ALBUMIN 3.8 g/dL 11/23/2017 Comp Metabolic Pvr089 TPRO 6.2 g/dL 11/23/2017 Comp Metabolic Xkt427 GLOB 2.4 g/dL 11/23/2017 Comp Metabolic Hrs737 A/G Ratio 1.6 Ratio 11/23/2017 Comp Metabolic Egn636 Osmo 289 mOsmo 11/23/2017 Free T4 Rfh996 FREE T4 1.04 ng/dL 11/23/2017 %Hba1C Lvl336 % HbA1c 15444- 6 6.4 % 11/23/2017 %Hba1C Ifb568 Gluc Ave 137 mg/dL 11/23/2017 Lipid Ord30 CHOL 179 mg/dL 11/23/2017 Lipid Ord30 HDL 51.0 mg/dl 11/23/2017 Lipid Ord30 TRIG 134 mg/dL 11/23/2017 Lipid Ord30 LDL 101 mg/dL 11/23/2017 Lipid Ord30 C/HDL 3.5 Ratio 11/23/2017 Tsh Ord6 TSH (3rd IS) 1.00 uIU/mL 11/23/2017 Microalbumin Rkk167 MicroAlb <0.7 mg/dL 11/23/2017 Comp Metabolic Pke652 NA 141 mEq/L 01/23/2017 Comp Metabolic Kpx850 K 4.5 mEq/L 01/23/2017 Comp Metabolic Niy793 CL 107 mEq/L 01/23/2017 Comp Metabolic Cwa972 CO2 21.0 mEq/L 01/23/2017 Comp Metabolic Cra891 ANION GAP 18 01/23/2017 Comp Metabolic Jdt217 GLUCOSE 138 mg/dL 01/23/2017 Comp Metabolic Wmx277 Creat 1.0 mg/dL 01/23/2017 Comp Metabolic Crt425 eGFR 56 ml/min/1.73m2 01/23/2017 Comp Metabolic Rke629 BUN 26 mg/dL 01/23/2017 Comp Metabolic Xze507 B/C Ratio 25.7 Ratio 01/23/2017 Comp Metabolic Pwj085 CALCIUM 9.0 mg/dL 01/23/2017 Comp Metabolic Uia948 ALK PHOS 37 U/L 01/23/2017 Comp Metabolic Ihj489 AST(SGOT) 20 U/L 01/23/2017 Comp Metabolic Duz201 ALT(SGPT) 25 U/L 01/23/2017 Comp Metabolic Riz753 BILI T 0.9 mg/dL 01/23/2017 Comp Metabolic Jck050 ALBUMIN 3.8 g/dL 01/23/2017 Comp Metabolic Vnv120 TPRO 6.5 g/dL 01/23/2017 Comp Metabolic Efb097 GLOB 2.7 g/dL 01/23/2017 Comp Metabolic Uze821 A/G Ratio 1.4 Ratio 01/23/2017 Comp Metabolic Uwg043 Osmo 288 mOsmo 01/23/2017 Free T4 Ywe577 FREE T4 1.05 ng/dL 01/23/2017 %Hba1C Wlc287 % HbA1c 60661- 6 6.1 % 01/23/2017 %Hba1C Zai868 Gluc [address] 128 mg/dL 01/23/2017 Tsh Ord6 hTSH II 1.68 uIU/mL 01/23/2017 Culture Urine [id number] URINE CULTURE SEE NOTES 11/10/2016 Culture Urine [id number] Continued Results 11/10/2016 Urine Culture Ucult Complete [...] Ord15 CALCIUM 9.3 mg/dL 09/29/2016 Free T4 Rsf178 FREE T4 0.99 ng/dL 09/07/2016 Cbc With [...] 30.0 pg 09/07/2016 Cbc With Differential Ord2 Mayes% 9.8 % 09/07/2016 Cbc With Differential Ord2 [...] 1.75 K/ul 09/07/2016 Cbc With Differential Ord2 Mayes ABS# 0.6 K/ul 09/07/2016 Cbc With Differential Ord2 Eos ABS# 0.1 K/ul 09/07/2016 Cbc With Differential Ord2 Baso ABS# 0.0 K/ul 09/07/2016 Tsh Ord6 hTSH II 1.41 uIU/mL 09/07/2016 Culture Urine [id number] URINE CULTURE SEE NOTES 06/27/2016 Lipid Ord30 CHOL 196 mg/dL 06/22/2016 Lipid Ord30 HDL 63.0 mg/dl 06/22/2016 Lipid Ord30 TRIG 154 mg/dL 06/22/2016 Lipid Ord30 LDL 102 mg/dL 06/22/2016 Lipid Ord30 C/HDL 3.1 Ratio 06/22/2016 Hepatic Iii476 ALBUMIN 4.2 g/dL 06/22/2016 Hepatic Nlw832 TPRO 7.0 g/dL 06/22/2016 Hepatic Svu387 GLOB 2.8 g/dL 06/22/2016 Hepatic Wcr669 A/G Ratio 1.5 Ratio 06/22/2016 Hepatic Voo183 ALK PHOS 54 U/L 06/22/2016 Hepatic Lja605 ALT(SGPT) 30 U/L 06/22/2016 Hepatic Muq225 AST(SGOT) 24 U/L 06/22/2016 Hepatic Gsa266 BILI T 1.1 mg/dL 06/22/2016 Hepatic Sak440 BILI D 0.2 mg/dL 06/22/2016 Hepatic Xui993 BILI I 0.9 mg/dL 06/22/2016 Comp Metabolic Pom831 NA 139 mEq/L 06/14/2016 Comp Metabolic Pdo547 K 4.6 mEq/L 06/14/2016 Comp Metabolic Pmh916 CL 108 mEq/L 06/14/2016 Comp Metabolic Aix927 CO2 22.0 mEq/L 06/14/2016 Comp Metabolic Ssz013 ANION GAP 14 06/14/2016 Comp Metabolic Vrq340 GLUCOSE 114 mg/dL 06/14/2016 Comp Metabolic Wnk559 Creat 1.2 mg/dL 06/14/2016 Comp Metabolic Dvg033 eGFR 48 ml/min/1.73m2 06/14/2016 Comp Metabolic Fvn008 BUN 24 mg/dL 06/14/2016 Comp Metabolic Mvb224 B/C Ratio 20.9 Ratio 06/14/2016 Comp Metabolic Nly119 CALCIUM 9.9 mg/dL 06/14/2016 Comp Metabolic Lqt509 ALK PHOS 47 U/L 06/14/2016 Comp Metabolic Pfx097 AST(SGOT) 28 U/L 06/14/2016 Comp Metabolic Vbv822 ALT(SGPT) 32 U/L 06/14/2016 Comp Metabolic Uhp814 BILI T 0.9 mg/dL 06/14/2016 Comp Metabolic Fsr164 ALBUMIN 4.1 g/dL 06/14/2016 Comp Metabolic Pdx357 TPRO 6.9 g/dL 06/14/2016 Comp Metabolic Usj452 GLOB 2.8 g/dL 06/14/2016 Comp Metabolic Uuh097 A/G Ratio 1.5 Ratio 06/14/2016 Comp Metabolic Ivs271 Osmo 282 mOsmo 06/14/2016 Tsh Ord6 hTSH II 1.26 uIU/mL 06/14/2016 Free T4 Qaj744 FREE T4 1.09 ng/dL 06/14/2016 Tsh Ord6 hTSH II 0.28 uIU/mL 02/02/2016 Digoxin Ord9 DIGOXIN 0.7 NG/ML 02/02/2016 Free T4 Ddv331 FREE T4 1.23 ng/dL 02/02/2016 Hepatic Rug937 ALBUMIN 4.0 g/dL 02/02/2016 Hepatic Poa983 TPRO 7.0 g/dL 02/02/2016 Hepatic Xaf473 GLOB 3.0 g/dL 02/02/2016 Hepatic Ghc502 A/G Ratio 1.3 Ratio 02/02/2016 Hepatic Yfu837 ALK PHOS 57 U/L 02/02/2016 Hepatic Phx151 ALT(SGPT) 62 U/L 02/02/2016 Hepatic Cvx568 AST(SGOT) 54 U/L 02/02/2016 Hepatic Sxp205 BILI T 0.8 mg/dL 02/02/2016 Hepatic Smv540 BILI D 0.2 mg/dL 02/02/2016 Hepatic Fam831 BILI I 0.6 mg/dL 02/02/2016 Urine Culture Ucult Preliminary No Growth Day 1 11/25/2015 Urine Culture Ucult Complete No Growth Day 2 11/25/2015 Hepatic Hik083 ALBUMIN 3.9 g/dL 11/11/2015 Hepatic Htr840 TPRO 7.0 g/dL 11/11/2015 Hepatic Jrg927 GLOB 3.1 g/dL 11/11/2015 Hepatic Qek991 A/G Ratio 1.3 Ratio 11/11/2015 Hepatic Gko893 ALK PHOS 63 U/L 11/11/2015 Hepatic Npk543 ALT(SGPT) 107 U/L 11/11/2015 Hepatic Zte642 AST(SGOT) 101 U/L 11/11/2015 Hepatic Tcx586 BILI T 0.6 mg/dL 11/11/2015 Hepatic Mkn730 BILI D 0.1 mg/dL 11/11/2015 Hepatic Kii672 BILI I 0.5 mg/dL 11/11/2015 Comp Metabolic Ngi326 NA 138 mEq/L 10/29/2015 Comp Metabolic Bju345 K 5.0 mEq/L 10/29/2015 Comp Metabolic Bcq671 CL 105 mEq/L 10/29/2015 Comp Metabolic Djj650 CO2 23.0 mEq/L 10/29/2015 Comp Metabolic Qeq014 ANION GAP 15 10/29/2015 Comp Metabolic Ant547 GLUCOSE 105 mg/dL 10/29/2015 Comp Metabolic Gti172 Creat 1.0 mg/dL 10/29/2015 Comp Metabolic Fhr194 eGFR 55 ml/min/1.73m2 10/29/2015 Comp Metabolic Txg700 BUN 20 mg/dL 10/29/2015 Comp Metabolic Hkr541 B/C Ratio 19.4 Ratio 10/29/2015 Comp Metabolic Czl048 CALCIUM 8.8 mg/dL 10/29/2015 Comp Metabolic Gql232 ALK PHOS 56 U/L 10/29/2015 Comp Metabolic Aqu626 AST(SGOT) 66 U/L 10/29/2015 Comp Metabolic Ubx452 ALT(SGPT) 78 U/L 10/29/2015 Comp Metabolic Qze256 BILI T 0.7 mg/dL 10/29/2015 Comp Metabolic Dkl404 ALBUMIN 3.6 g/dL 10/29/2015 Comp Metabolic Qce053 TPRO 6.6 g/dL 10/29/2015 Comp Metabolic Bcg679 GLOB 3.0 g/dL 10/29/2015 Comp Metabolic Unm581 A/G Ratio 1.2 Ratio 10/29/2015 Comp Metabolic Naj755 Osmo 279 mOsmo 10/29/2015 Comp Metabolic Dwt048 NA 136 mEq/L 09/03/2015 Comp Metabolic Wsw120 K 4.4 mEq/L 09/03/2015 Comp Metabolic Lmm640 CL 103 mEq/L 09/03/2015 Comp Metabolic Anw526 CO2 24.0 mEq/L 09/03/2015 Comp Metabolic Svb908 ANION GAP 13 09/03/2015 Comp Metabolic Aii252 GLUCOSE 87 mg/dL 09/03/2015 Comp Metabolic Hhx463 Creat 1.1 mg/dL 09/03/2015 Comp Metabolic Rng753 eGFR 53 ml/min/1.73m2 09/03/2015 Comp Metabolic Anu671 BUN 17 mg/dL 09/03/2015 Comp Metabolic Aik366 B/C Ratio 16.2 Ratio 09/03/2015 Comp Metabolic Plx811 CALCIUM 9.0 mg/dL 09/03/2015 Comp Metabolic Rmr606 ALK PHOS 55 U/L 09/03/2015 Comp Metabolic Psp704 AST(SGOT) 83 U/L 09/03/2015 Comp Metabolic Djh845 ALT(SGPT) 126 U/L 09/03/2015 Comp Metabolic Geh456 BILI T 0.9 mg/dL 09/03/2015 Comp Metabolic Orv731 ALBUMIN 3.9 g/dL 09/03/2015 Comp Metabolic Fdx861 TPRO 6.8 g/dL 09/03/2015 Comp Metabolic Syf385 GLOB 2.9 g/dL 09/03/2015 Comp Metabolic Ije834 A/G Ratio 1.4 Ratio 09/03/2015 Comp Metabolic Run113 Osmo 273 mOsmo 09/03/2015 Total T3 Ord42 TT3 0.6 ng/ml 07/09/2015 Tsh Ord6 hTSH II 1.62 uIU/mL 07/09/2015 Total T3 Ord42 TT3 0.5 ng/ml 04/02/2015 Free T4 Llp373 FREE T4 1.23 ng/dL 04/02/2015 Tsh Ord6 [...] Procedure Codes Date THER/PROPH/DIAG INJ SC/IM CPT-4: 89428 08/29/2018 THER/PROPH/DIAG INJ SC/IM CPT-4: 07506 08/15/2018 TRIAMCINOLONE ACET INJ NOS CPT-4: J3301 08/15/2018 THER/PROPH/DIAG INJ SC/IM CPT-4: 54768 08/01/2018 VITAMIN B12 INJECTION CPT- 4: J3420 08/01/2018 THER/PROPH/DIAG INJ SC/IM CPT-4: 30414 07/19/2018 THER/PROPH/DIAG INJ SC/IM CPT-4: 11015 07/04/2018 THER/PROPH/DIAG INJ SC/IM CPT-4: 52965 06/20/2018 THER/PROPH/DIAG INJ SC/IM CPT-4: 16048 06/06/2018 VITAMIN B12 INJECTION CPT- 4: J3420 06/06/2018 THER/PROPH/DIAG INJ SC/IM CPT-4: 80727 05/24/2018 THER/PROPH/DIAG INJ SC/IM CPT-4: 64180 05/09/2018 THER/PROPH/DIAG INJ SC/IM CPT-4: 30467 04/26/2018 VITAMIN B12 INJECTION CPT- 4: J3420 04/26/2018 THER/PROPH/DIAG INJ SC/IM CPT-4: 35033 04/12/2018 THER/PROPH/DIAG INJ SC/IM CPT-4: 16631 03/30/2018 THER/PROPH/DIAG INJ SC/IM CPT-4: 65314 03/16/2018 VITAMIN B12 INJECTION CPT- 4: J3420 03/16/2018 ADMIN INFLUENZA VIRUS VAC CPT-4: G0008 03/16/2018 FLU VACC PRSV FREE INC ANTIG Formatting Model/CDA Sections, Assigned to/Nga Ojeda CPT-4: 05169Vvrnizd 03/16/2018 THER/PROPH/DIAG INJ SC/IM CPT-4: 95048 03/02/2018 THER/PROPH/DIAG INJ SC/IM CPT-4: 40254 02/08/2018 THER/PROPH/DIAG INJ SC/IM CPT-4: 17441 01/24/2018 THER/PROPH/DIAG INJ SC/IM CPT-4: 68656 01/10/2018 THER/PROPH/DIAG INJ SC/IM CPT-4: 77343 12/27/2017 VITAMIN B12 INJECTION CPT- 4: J3420 12/27/2017 THER/PROPH/DIAG INJ SC/IM CPT-4: 56521 12/12/2017 THER/PROPH/DIAG INJ SC/IM CPT-4: 15778 12/01/2017 VITAMIN B12 INJECTION CPT- 4: J3420 12/01/2017 THER/PROPH/DIAG INJ SC/IM CPT-4: 93116 11/17/2017 THER/PROPH/DIAG INJ SC/IM CPT-4: 69713 11/02/2017 THER/PROPH/DIAG INJ SC/IM CPT-4: 09340 10/20/2017 THER/PROPH/DIAG INJ SC/IM CPT-4: 48749 10/06/2017 THER/PROPH/DIAG INJ SC/IM CPT-4: 60355 09/21/2017 TRIAMCINOLONE ACET INJ NOS CPT-4: J3301 09/15/2017 THER/PROPH/DIAG INJ SC/IM CPT-4: 03831 09/07/2017 THER/PROPH/DIAG INJ SC/IM CPT-4: 88321 08/24/2017 THER/PROPH/DIAG INJ SC/IM CPT-4: 83243 07/06/2017 THER/PROPH/DIAG INJ SC/IM CPT-4: 35983 06/20/2017 TRIAMCINOLONE ACET INJ NOS CPT-4: J3301 06/20/2017 PPPS, SUBSEQ VISIT CPT- 4: G0439 06/05/2017 THER/PROPH/DIAG INJ SC/IM CPT-4: 19220 06/05/2017 THER/PROPH/DIAG INJ SC/IM CPT-4: 16117 05/25/2017 VITAMIN B12 INJECTION CPT- 4: J3420 05/25/2017 THER/PROPH/DIAG INJ SC/IM CPT-4: 94365 05/16/2017 THER/PROPH/DIAG INJ SC/IM CPT-4: 74658 05/01/2017 THER/PROPH/DIAG INJ SC/IM CPT-4: 70375 04/18/2017 THER/PROPH/DIAG INJ SC/IM CPT-4: 93517 04/06/2017 ADMIN INFLUENZA VIRUS VAC CPT-4: G0008 03/22/2017 FLU VACC PRSV FREE INC ANTIG CPT-4: 76425 03/22/2017 THER/PROPH/DIAG INJ SC/IM CPT-4: 82798 03/09/2017 THER/PROPH/DIAG INJ SC/IM CPT-4: 38257 02/23/2017 THER/PROPH/DIAG INJ SC/IM CPT-4: 90249 02/09/2017 THER/PROPH/DIAG INJ SC/IM CPT-4: 01008 01/23/2017 THER/PROPH/DIAG INJ SC/IM CPT-4: 25879 01/10/2017 THER/PROPH/DIAG INJ SC/IM CPT-4: 69323 12/28/2016 THER/PROPH/DIAG INJ SC/IM CPT-4: 61166 12/14/2016 THER/PROPH/DIAG INJ SC/IM CPT-4: 04340 11/24/2016 URINALYSIS NONAUTO W/O SCOPE CPT-4: 22908 11/07/2016 THER/PROPH/DIAG INJ SC/IM CPT-4: 91267 11/07/2016 THER/PROPH/DIAG INJ SC/IM CPT-4: 46743 10/24/2016 THER/PROPH/DIAG INJ SC/IM CPT-4: 21138 09/29/2016 THER/PROPH/DIAG INJ SC/IM CPT-4: 55826 08/29/2016 THER/PROPH/DIAG INJ SC/IM CPT-4: 73743 08/04/2016 THER/PROPH/DIAG INJ SC/IM CPT-4: 24478 07/21/2016 THER/PROPH/DIAG INJ SC/IM CPT-4: 91099 07/05/2016 THER/PROPH/DIAG INJ SC/IM CPT-4: 06244 06/22/2016 URINALYSIS NONAUTO W/O SCOPE CPT-4: 03111 06/22/2016 THER/PROPH/DIAG INJ SC/IM CPT-4: 72145 06/09/2016 PPPS, SUBSEQ VISIT CPT- 4: G0439 05/30/2016 ADMIN PNEUMOCOCCAL VACCINE SNOMED CT: 23244137 CPT-4: G0009 05/25/2016 Pneumococcal Polysaccharide Vaccine, 23-Valent, Ad CPT-4: 73179 05/25/2016 THER/PROPH/DIAG INJ SC/IM CPT-4: 27143 05/25/2016 THER/PROPH/DIAG INJ SC/IM CPT-4: 86537 05/10/2016 TRIAMCINOLONE ACET INJ NOS CPT-4: J3301 04/26/2016 VITAMIN B12 INJECTION CPT- 4: J3420 04/26/2016 THER/PROPH/DIAG INJ SC/IM CPT-4: 42572 04/11/2016 THER/PROPH/DIAG INJ SC/IM CPT-4: 11485 03/31/2016 ADMIN INFLUENZA VIRUS VAC CPT-4: G0008 03/15/2016 FLU VACC 4 STEPHANIE 3 YRS PLUS IM SNOMED CT: [id number] CPT-4: 51304 03/15/2016 THER/PROPH/DIAG INJ SC/IM CPT-4: 70200 02/25/2016 THER/PROPH/DIAG INJ SC/IM CPT-4: 57807 02/02/2016 THER/PROPH/DIAG INJ SC/IM CPT-4: 74012 01/18/2016 VITAMIN B12 INJECTION CPT- 4: J3420 12/29/2015 THER/PROPH/DIAG INJ SC/IM CPT-4: 64559 12/29/2015 THER/PROPH/DIAG INJ SC/IM CPT-4: 01549 12/08/2015 THER/PROPH/DIAG INJ SC/IM CPT-4: 61807 11/23/2015 URINALYSIS NONAUTO W/O SCOPE CPT-4: 25971 11/23/2015 THER/PROPH/DIAG INJ SC/IM CPT-4: 13279 11/11/2015 THER/PROPH/DIAG INJ SC/IM CPT-4: 38650 10/29/2015 THER/PROPH/DIAG INJ SC/IM CPT-4: 20213 10/12/2015 VITAMIN B12 INJECTION CPT- 4: J3420 10/12/2015 THER/PROPH/DIAG INJ SC/IM CPT-4: 50415 09/29/2015 THER/PROPH/DIAG INJ SC/IM CPT-4: 74921 09/17/2015 THER/PROPH/DIAG INJ SC/IM CPT-4: 29059 09/03/2015 THER/PROPH/DIAG INJ SC/IM CPT-4: 12417 08/17/2015 THER/PROPH/DIAG INJ SC/IM CPT-4: 47631 08/06/2015 THER/PROPH/DIAG INJ SC/IM CPT-4: 52491 07/22/2015 THER/PROPH/DIAG INJ SC/IM CPT-4: 04144 07/08/2015 THER/PROPH/DIAG INJ SC/IM CPT-4: 76654 06/23/2015 THER/PROPH/DIAG INJ SC/IM CPT-4: 06887 06/08/2015 THER/PROPH/DIAG INJ SC/IM CPT-4: 81010 05/27/2015 DESTRUCT PREMALG LESION CPT-4: 99027 05/19/2015 DESTRUCT PREMALG LES 2-14 CPT-4: 66822 05/19/2015 THER/PROPH/DIAG INJ SC/IM CPT-4: 34875 05/12/2015 VITAMIN B12 INJECTION CPT- 4: J3420 05/12/2015 THER/PROPH/DIAG INJ SC/IM CPT-4: 37667 04/30/2015 VITAMIN B12 INJECTION CPT- 4: J3420 04/30/2015 THER/PROPH/DIAG INJ SC/IM CPT-4: 43465 04/16/2015 THER/PROPH/DIAG INJ SC/IM CPT-4: 73638 04/02/2015 VITAMIN B12 INJECTION CPT- 4: J3420 04/02/2015 THER/PROPH/DIAG INJ SC/IM CPT-4: 44633 03/18/2015 THER/PROPH/DIAG INJ SC/IM CPT-4: 49812 03/03/2015 THER/PROPH/DIAG INJ SC/IM CPT-4: 21553 02/18/2015 THER/PROPH/DIAG INJ SC/IM CPT-4: 87419 02/04/2015 VITAMIN B12 INJECTION CPT- 4: J3420 02/04/2015 THER/PROPH/DIAG INJ SC/IM CPT-4: 55523 01/22/2015 THER/PROPH/DIAG INJ SC/IM CPT-4: 98664 01/08/2015 VITAMIN B12 INJECTION CPT- 4: J3420 01/08/2015 THER/PROPH/DIAG INJ SC/IM CPT-4: 13277 12/25/2014 VITAMIN B12 INJECTION CPT- 4: J3420 12/25/2014 THER/PROPH/DIAG INJ SC/IM CPT-4: 55617 12/10/2014 VITAMIN B12 INJECTION CPT- 4: J3420 12/10/2014 THER/PROPH/DIAG INJ SC/IM CPT-4: 77048 11/26/2014 VITAMIN B12 INJECTION CPT- 4: J3420 11/26/2014 THER/PROPH/DIAG INJ SC/IM CPT-4: 33096 11/12/2014 VITAMIN B12 INJECTION CPT- 4: J3420 11/12/2014 THER/PROPH/DIAG INJ SC/IM CPT-4: 47084 10/28/2014 Vital Signs Date Vital 09/05/2018 Blood Pressure 1: 122/70 Code: 8480-6 BMI: 27.1 Code: 77899-2 Heart Rate 1: 90 bpm Height: 5'6" SpO2: 97% Weight: 168 lbs 08/15/2018 Blood Pressure 1: 142/76 Code: 8480-6 BMI: 27.4 Code: 42096-4 Heart Rate 1: 74 bpm Height: 5'6" SpO2: 95% Temperature: 36.7 (C) / 98.1 (F) Weight: 170 lbs 05/03/2018 Blood Pressure 1: 140/70 Code: 8480-6 BMI: 26.0 Code: 97052-4 Heart Rate 1: 70 bpm Height: 5'6" SpO2: 94% Weight: 161 lbs 04/26/2018 Height: 5'6" 02/26/2018 Blood Pressure 1: 130/72 Code: 8480-6 BMI: 27.9 Code: 78280-9 Heart Rate 1: 72 bpm Height: 5'6" SpO2: 93% Weight: 173 lbs 12/12/2017 Blood Pressure 1: 126/74 Code: 8480-6 BMI: 27.4 Code: 40796-7 Heart Rate 1: 83 bpm Height: 5'6" SpO2: 98% Weight: 170 lbs 12/04/2017 Blood Pressure 1: 104/68 Code: 8480-6 BMI: 28.2 Code: 65180-4 Heart Rate 1: 85 bpm Height: 5'6" SpO2: 95% Weight: 175 lbs 11/20/2017 Blood Pressure 1: 130/68 Code: 8480-6 BMI: 28.4 Code: 13846-5 Heart Rate 1: 80 bpm Height: 5'6" SpO2: 99% Weight: 176 lbs 11/02/2017 Height: 5'6" 09/15/2017 Blood Pressure 1: 134/74 Code: 8480-6 BMI: 28.4 Code: 95932-8 Heart Rate 1: 88 bpm Height: 5'6" SpO2: 98% Weight: 176 lbs 09/07/2017 Blood Pressure 1: 124/64 Code: 8480-6 Heart Rate 1: 90 bpm Height: SpO2: 97% Weight: 08/30/2017 Blood Pressure 1: 140/76 Code: 8480-6 BMI: 28.4 Code: 74194-6 Heart Rate 1: 90 bpm Height: 5'6" SpO2: 94% Weight: 176 lbs 07/06/2017 Blood Pressure 1: 132/66 Code: 8480-6 BMI: 29.4 Code: 96269-8 Heart Rate 1: 85 bpm Height: 5'6" SpO2: 97% Weight: 182 lbs 06/20/2017 Blood Pressure 1: 134/86 Code: 8480-6 Heart Rate 1: 90 bpm Height: SpO2: 98% Weight: 06/05/2017 BMI: 29.1 Code: 69052-7 Height: 5'6" Weight: 180 lbs 05/25/2017 Blood Pressure 1: 126/76 Code: 8480-6 BMI: 29.1 Code: 88653-0 Heart Rate 1: 77 bpm Height: 5'6" SpO2: 97% Weight: 180 lbs 03/23/2017 Blood Pressure 1: 142/84 Code: 8480-6 BMI: 29.1 Code: 53581-6 Heart Rate 1: 91 bpm Height: 5'6" SpO2: 97% Weight: 180 lbs 01/23/2017 Blood Pressure 1: 150/90 Code: 8480-6 BMI: 29.9 Code: 16553-6 Heart Rate 1: 81 bpm Height: 5'6" SpO2: 97% Weight: 185 lbs 11/02/2016 Blood Pressure 1: 148/78 Code: 8480-6 BMI: 29.7 Code: 83522-9 Heart Rate 1: 87 bpm Height: 5'6" SpO2: 97% Weight: 184 lbs 09/29/2016 Blood Pressure 1: 128/78 Code: 8480-6 BMI: 29.7 Code: 99155-3 Heart Rate 1: 78 bpm Height: 5'6" SpO2: 98% Weight: 184 lbs 07/26/2016 Blood Pressure 1: 138/72 Code: 8480-6 BMI: 30.0 Code: 51150-2 Heart Rate 1: 85 bpm Height: 5'6" SpO2: 97% Weight: 186 lbs 05/30/2016 Blood Pressure 1: 132/76 Code: 8480-6 BMI: 30.0 Code: 68053-6 Heart Rate 1: 80 bpm Height: 5'6" SpO2: 98% Waist Measure (cm): 99 cm Weight: 186 lbs 05/25/2016 Blood Pressure 1: 132/76 Code: 8480-6 BMI: 30.0 Code: 87596-6 Heart Rate 1: 80 bpm Height: 5'6" SpO2: 96% Weight: 186 lbs 02/25/2016 Blood Pressure 1: 110/64 Code: 8480-6 Heart Rate 1: 82 bpm Height: SpO2: 96% Weight: 01/25/2016 Blood Pressure 1: 118/70 Code: 8480-6 BMI: 30.0 Code: 36130-1 Heart Rate 1: 78 bpm Height: 5'6" SpO2: 97% Weight: 186 lbs 11/11/2015 Blood Pressure 1: 128/82 Code: 8480-6 BMI: 29.2 Code: 26722-2 Heart Rate 1: 86 bpm Height: 5'6" SpO2: 96% Temperature: 36.4 (C) / 97.6 (F) Weight: 181 lbs 10/12/2015 Blood Pressure 1: 118/70 Code: 8480-6 BMI: 29.2 Code: 69779-5 Heart Rate 1: 81 bpm Height: 5'6" SpO2: 95% Weight: 181 lbs 09/03/2015 Blood Pressure 1: 138/78 Code: 8480-6 BMI: 29.9 Code: 33368-2 Heart Rate 1: 88 bpm Height: 5'6" SpO2: 97% Weight: 185 lbs 05/19/2015 Blood Pressure 1: 146/78 Code: 8480-6 BMI: 30.0 Code: 00566-8 Heart Rate 1: 66 bpm Height: 5'6" SpO2: 97% Weight: 186 lbs 05/12/2015 Blood Pressure 1: 120/70 Code: 8480-6 BMI: 29.9 Code: 10302-4 Heart Rate 1: 89 bpm Height: 5'6" SpO2: 95% Weight: 185 lbs 01/13/2015 Blood Pressure 1: 140/90 Code: 8480-6 BMI: 30.3 Code: 58557-3 Heart Rate 1: 84 bpm Height: 5'6" SpO2: 95% Weight: 188 lbs 12/16/2014 Blood Pressure 1: 140/82 Code: 8480-6 BMI: 29.5 Code: 09443-4 Heart Rate 1: 86 bpm Height: 5'6" [...] data Encounters Encounter Performer Location Codes Date ([id number]) [id number] EST. PATIENT, LEVEL IV Diagnosis: Essential (primary) hypertension[ICD10: I10] Diagnosis: Type 2 diabetes mellitus without complications[ICD10: E11.9] Diagnosis: Atrophy of thyroid (acquired)[ICD10: E03.4] Diagnosis: Other vitamin B12 deficiency anemias[ICD10: D51.8] Yarely Vega MD, [facility] CPT-4: 14781 09/05/2018 [id number] EST. PATIENT, LEVEL IV Diagnosis: Acute bronchitis due to other specified organisms[ICD10: J20.8] Diagnosis: Cough[ICD10: R05] Diagnosis: 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 factor deficiency[ICD10: D51.0] Brianna Vega MD, [facility] CPT-4: 18841 08/15/2018 ([id number]) 59214 EST. PATIENT, LEVEL IV Diagnosis: Essential (primary) hypertension[ICD10: I10] Diagnosis: Type 2 diabetes mellitus without complications[ICD10: E11.9] Yarely Vega MD, [facility] CPT-4: 90799 05/03/2018 ([id number]) 17184 EST. PATIENT, LEVEL III Diagnosis: Pain in left shoulder[ICD10: M25.512] Diagnosis: Pain in right shoulder[ICD10: M25.511] Yarely Vega MD, [facility] CPT-4: 34344 02/26/2018 ([id number]) 00745 EST. PATIENT, LEVEL III Diagnosis: Nausea[ICD10: R11.0] Diagnosis: Cough[ICD10: R05] Diagnosis: 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 factor deficiency[ICD10: D51.0] Janet Vega MD, [facility] CPT-4: 81532 12/12/2017 ([id number]) 49196 EST. PATIENT, LEVEL IV Diagnosis: Acute bronchitis due to Hemophilus influenzae[ICD10: J20.1] Diagnosis: Cough[ICD10: R05] Yarely Vega MD, [facility] CPT-4: 09521 12/04/2017 ([id number]) 55935 EST. PATIENT, LEVEL IV Diagnosis: Essential (primary) hypertension[ICD10: I10] Diagnosis: Cough[ICD10: R05] Diagnosis: Chronic atrial fibrillation[ICD10: I48.2] Yarely Vega MD, [facility] CPT-4: 12083 11/20/2017 ([id number]) [id number] EST. PATIENT, LEVEL III Diagnosis: Cough[ICD10: R05] Diagnosis: Acute upper respiratory infection, unspecified[ICD10: J06.9] Janet Vega MD, [facility] CPT-4: 30846 09/15/2017 [id number] EST. PATIENT, LEVEL III Diagnosis: Laceration without foreign body of right forearm, initial encounter[ICD10: S51.811A] Diagnosis: Other vitamin B12 deficiency anemias[ICD10: D51.8] Brianna Vega MD, [facility] CPT-4: 27655 09/07/2017 ([id number]) 02105 EST. PATIENT, LEVEL IV Diagnosis: Chronic atrial fibrillation[ICD10: I48.2] Diagnosis: Other allergic rhinitis[ICD10: J30.89] Diagnosis: Encounter for therapeutic drug level monitoring[ICD10: Z51.81] Yarely Vega MD, [facility] CPT-4: 17445 08/30/2017 ([id number]) 16893 EST. PATIENT, LEVEL IV Diagnosis: Atrophy of thyroid (acquired)[ICD10: E03.4] Diagnosis: Cough[ICD10: R05] Diagnosis: Laceration without foreign body of left forearm, initial encounter[ICD10: S51.812A] Diagnosis: Candidiasis of skin and nail[ICD10: B37.2] Diagnosis: Other vitamin B12 deficiency anemias[ICD10: D51.8] Diagnosis: Slow transit constipation[ICD10: K59.01] Yarely Vega MD, [facility] CPT-4: 18496 07/06/2017 [id number] EST. PATIENT, LEVEL III Diagnosis: Other vitamin B12 deficiency anemias[ICD10: D51.8] Diagnosis: Acute laryngopharyngitis[ICD10: J06.0] Diagnosis: Other allergic rhinitis[ICD10: J30.89] Brianna Vega MD, [facility] CPT- 4: 99253 06/20/2017 ([id number]) 02137 EST. PATIENT, LEVEL IV Diagnosis: Essential (primary) hypertension[ICD10: I10] Diagnosis: Chronic atrial fibrillation[ICD10: I48.2] Diagnosis: Atrophy of thyroid (acquired)[ICD10: E03.4] Diagnosis: 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 factor deficiency[ICD10: D51.0] Yarely Vega MD, [facility] CPT-4: 51667 05/25/2017 ([id number]) 03985 EST. PATIENT, LEVEL IV Diagnosis: Type 2 diabetes mellitus without complications[ICD10: E11.9] Diagnosis: Atrophy of thyroid (acquired)[ICD10: E03.4] Diagnosis: Chest pain on breathing[ICD10: R07.1] Diagnosis: Chondrocostal junction syndrome [Tietze][ICD10: M94.0] Diagnosis: Other fatigue[ICD10: R53.83] Yarely Vega MD, [facility] CPT-4: 08473 03/23/2017 ([id number]) 92526 EST. PATIENT, LEVEL IV Diagnosis: Type 2 diabetes mellitus without complications[ICD10: E11.9] Diagnosis: Essential (primary) hypertension[ICD10: I10] Diagnosis: Headache[ICD10: R51] Diagnosis: Atrophy of thyroid (acquired)[ICD10: E03.4] Diagnosis: Vitamin B12 deficiency anemia, unspecified[ICD10: D51.9] Yarely Vega MD, [facility] CPT-4: 95155 01/23/2017 [id number] EST. PATIENT, LEVEL III Diagnosis: Low back pain[ICD10: M54.5] Diagnosis: Pain in thoracic spine[ICD10: M54.6] Brianna Vega MD, [facility] CPT- 4: 65270 11/02/2016 ([id number]) 83875 EST. PATIENT, LEVEL IV Diagnosis: Essential (primary) hypertension[ICD10: I10] Diagnosis: Other vitamin B12 deficiency anemias[ICD10: D51.8] Diagnosis: Generalized abdominal pain[ICD10: R10.84] Yarely Vega MD [facility] CPT-4: 02284 09/29/2016 ([id number]) 18058 EST. PATIENT, LEVEL IV Diagnosis: Essential (primary) hypertension[ICD10: I10] Yarely Vega MD, [facility] CPT-4: 34140 07/26/2016 ([id number]) 04904 EST. PATIENT, LEVEL IV Diagnosis: Benign lipomatous neoplasm of skin and subcutaneous tissue of right leg[ICD10: D17.23] Diagnosis: Pain in right ankle and joints of right foot[ICD10: M25.571] Diagnosis: Encounter for immunization[ICD10: Z23] Diagnosis: Vitamin B12 deficiency anemia, unspecified[ICD10: D51.9] Yarely Vega MD, [facility] CPT-4: 32277 05/25/2016 80426 EST. PATIENT, LEVEL III Diagnosis: Other chest pain[ICD10: R07.89] Diagnosis: Other vitamin B12 deficiency anemias[ICD10: D51.8] Brianna Vega MD, [facility] CPT-4: 46698 02/25/2016 ([id number]) 44826 EST. PATIENT, LEVEL IV Diagnosis: Essential (primary) hypertension[ICD10: I10] Diagnosis: Hypothyroidism, unspecified[ICD10: E03.9] Diagnosis: Other hypersomnia[ICD10: G47.19] Diagnosis: Idiopathic sleep related nonobstructive alveolar hypoventilation[ICD10: G47.34] Yarely Vega MD, [facility] CPT-4: 06106 01/25/2016 [id number] EST. PATIENT, LEVEL III Diagnosis: Other vitamin B12 deficiency anemias[ICD10: D51.8] Diagnosis: Acute nasopharyngitis [common cold][ICD10: J00] Diagnosis: Other allergic rhinitis[ICD10: J30.89] Brianna Vega MD, [facility] CPT- 4: 69246 11/11/2015 ([id number]) 44600 EST. PATIENT, LEVEL IV Diagnosis: Essential tremor[ICD10: G25.0] Diagnosis: Chronic fatigue, unspecified[ICD10: R53.82] Diagnosis: Other hypersomnia[ICD10: G47.19] Diagnosis: Essential (primary) hypertension[ICD10: I10] Yarely Vega MD, [facility] CPT-4: 88456 10/12/2015 ([id number]) 89690 EST. PATIENT, LEVEL IV Diagnosis: Essential (primary) hypertension[ICD10: I10] Diagnosis: Chronic atrial fibrillation[ICD10: I48.2] Diagnosis: Abnormal levels of other serum enzymes[ICD10: R74.8] Diagnosis: Type 2 diabetes mellitus without complications[ICD10: E11.9] Diagnosis: Vitamin B12 deficiency anemia, unspecified[ICD10: D51.9] Yarely Vega MD, [facility] CPT-4: 15783 09/03/2015 ([id number]) 57244 EST. PATIENT, LEVEL III Diagnosis: Nausea[ICD10: R11.0] Diagnosis: Essential tremor[ICD10: G25.0] Diagnosis: Actinic keratosis[ICD10: L57.0] Yarely Vega MD, [facility] CPT-4: 18101 05/19/2015 ([id number]) 23002 EST. PATIENT, LEVEL IV Diagnosis: Vitamin B12 deficiency anemia, unspecified[ICD10: D51.9] Diagnosis: Chronic atrial fibrillation[ICD10: I48.2] Diagnosis: Headache[ICD10: R51] Diagnosis: Chronic fatigue, unspecified[ICD10: R53.82] Diagnosis: Cervicalgia[ICD10: M54.2] Yarely Vega MD, [facility] CPT-4: 12083 05/12/2015 ([id number]) [id number] EST. PATIENT, LEVEL IV Diagnosis: ESSENTIAL HYPERTENSION[ICD9: 401.9] Diagnosis: Afib[ICD9: 427.31] Diagnosis: Anxiety[ICD9: 300.00] Diagnosis: Insomnia[ICD9: 780.52] Yarely Vega MD, [facility] CPT-4: 61928 01/13/2015 ([id number]) OFFICE VISIT, NEW - LEVEL 4 Diagnosis: Hypothyroidism[ICD9: 244.9] Diagnosis: DIABETES TYPE II[ICD9: 250.00] Diagnosis: ESSENTIAL HYPERTENSION[ICD9: 401.9] Diagnosis: Afib[ICD9: 427.31] Diagnosis: Anxiety[ICD9: 300.00] Diagnosis: B12 deficiency[ICD9: 266.2] Janet Vega MD, [facility] CPT-4: 88195 12/16/2014 Plan of Care Planned Activity Notes [...] of control. 09/05/2018 Appointment: Yarely Vega WPtel: [address] [place], [place] [address] (15 min) Moderate 09/05/2018 Patient Education: Patient Medication Summary Completed 09/05/2018 Patient Education: Hypertension Completed 09/05/2018 Patient Education: Diabetes Completed 09/05/2018 Care Plan: Comp Metabolic Pending 09/05/2018 Care Plan: Cbc With Differential Pending 09/05/2018 Care Plan: %Hba1C LOINC : 00920-3 Pending 09/05/2018 Care Plan: Tsh Pending 09/05/2018 Care Plan: Lipid Pending 09/05/2018 Care Plan: Free T4 Pending 09/05/2018 Care Plan: Microalbumin Pending 09/05/2018 Appointment: [...] Completed 06/20/2018 Appointment: [facility]el[facility] [phone] [facility] [place] (30 min) Complex 06/07/2018 Appointment: Injection 06/06/2018 Patient Education: Patient Medication Summary Completed 06/06/2018 Appointment: Yarely Vega WPtel: [facility] (15 min) Moderate 05/31/2018 Appointment: Injection [...] restart flonase 05/03/2018 Appointment: Yarely Vega WPtel: [facility] [place] (15 min) Moderate 05/03/2018 Patient [...] intervention. 02/26/2018 Appointment: Yarely Vega WPtel: [phone] [facility] [place] (15 min) Moderate 02/26/2018 Patient Education: Patient Medication Summary Completed 02/26/2018 Care Plan: Referral Order SNOMED-CT : [id number] Pending 02/26/2018 Appointment: Injection 02/08/2018 Patient Education: Patient Medication Summary Completed 02/08/2018 Appointment: Injection 01/24/2018 Patient Education: Patient Medication Summary Completed 01/24/2018 Appointment: Injection 01/10/2018 Patient Education: Patient Medication Summary Completed 01/10/2018 Appointment: Injection 12/27/2017 Patient Education: Patient Medication Summary Completed 12/27/2017 Appointment: Yarely Vega WPtel: [phone] [facility] [place] (15 min) Moderate 12/26/2017 Visit Plan: Cwuqdr-rwptgnxmu-hvbskobd protonix-follow up with Dr Navarro as scheduled Cough-recent bronchitis-symptoms improved-call if symptoms do not completely resolve 12/12/2017 Appointment: Janet Fam WPtel: [phone] [phone] [place] (15 min) Moderate 12/12/2017 Patient Education: Patient Medication Summary Completed 12/12/2017 Visit Plan: Bronchitis - acute case of bronchitis identified. Pt has been given antibiotics, breathing treatments as appropriate, and pt has been instructed to call if symptoms are not improved, or if symptoms acutely worsen. Cough - rx for antibiotics as well as cough medication. 12/04/2017 Appointment: [facility]ega [facility]Ptel[facility] [phone] [facility] (15 min) Moderate 12/04/2017 Patient Education: [...] Fatigue/malaise -Pt was advsied to ask the Bag Patcher the following: ask the heart doctor if [...] uncontrolled. 11/20/2017 Appointment: Yarely Vega WPtel: [phone] [facility] (15 min) Moderate 11/20/2017 Patient Education: [...] any worse. 09/15/2017 Appointment: Janet Fam WPtel: [phone] [phone] [place] (15 min) Moderate 09/15/2017 Patient Education: Patient Medication Summary Completed 09/15/2017 Appointment: Yarely Vega WPtel: [address] [place], [place] [id number] [place] (15 min) Moderate 09/11/2017 Visit Plan: Skin tear and Cellulitis - The patient was instructed in appropriate wound care. The patient was instructed to use the antibiotic ointment as per RX. The patient is to call for any change in symptoms, increase in size of the lesion, increase in pain, worsening redness, warmth, discharge. 09/07/2017 Appointment: Brianna Otoole WPtel: [facility] [place] (10 min) Simple 09/07/2017 Patient Education: Patient Medication Summary Completed 09/07/2017 Visit Plan: Lipoma - left ankle - talk to dr. barnes about possible surgery/laser for treatment of lipoma. Fatigue/malaise -Pt was advsied to ask the Bag Patcher the following: ask the heart doctor if there is an alternative to the amiodarone - you may be having side effects from the medication causing you to have pruritus (itching) and feeling like you have body aches, muscle aches, joint pain, fatigue, weight loss (decreased appetite), and pneumonia like symptoms. Congestion - claritin 10mg daily. 08/30/2017 Appointment: Yarely Vega WPtel: [facility]2 [facility] [place] (15 min) Moderate 08/30/2017 Patient Education: Patient Medication Summary Completed 08/30/2017 Appointment: Injection 08/24/2017 Appointment: Yarely Vega WPtel: [facility] [place] (15 min) Moderate 08/24/2017 Patient [...] and mucinex 07/06/2017 Appointment: Yarely Vega WPtel: [phone] [facility] (15 min) Moderate 07/06/2017 Patient Education: [...] allergy spray. 06/20/2017 Appointment: [facility]el[phone] [facility] (15 min) Moderate 06/20/2017 Patient Education: [...] Injection 06/05/2017 Appointment: Brianna Otoole WPtel[facility] [phone] [facility] [facility] - Annual Wellness Visit 06/05/2017 [...] control. 05/25/2017 Appointment: Yarely Vega WPtel: [phone] [facility] (15 min) Moderate 05/25/2017 Patient Education: [...] wall. Fatigue - pt to discuss with Bag Patcher about the possibility of amiodarone causing her fatigue/malaise. 03/23/2017 Appointment: Yarely Vega WPtel: [phone] [facility] (15 min) Moderate 03/23/2017 Patient Education: [...] twice daily. 01/23/2017 Appointment: Yarely Vega WPtel: [facility] (15 min) Moderate 01/23/2017 Patient Education: [...] improve. 11/02/2016 Appointment: Brianna Otoole WPtel: [phone] [facility] [place] (15 min) Moderate 11/02/2016 Patient [...] carafate 09/29/2016 Appointment: Yarely Vega WPtel: [address] [facility] [place] (15 min) Moderate 09/29/2016 Patient Education: Patient Medication Summary Completed 09/29/2016 Appointment: Yarely Vega WPtel: [phone] [facility] [place] (15 min) Moderate 09/27/2016 Appointment: Yarely Vega WPtel: [address] [facility] [place] (15 min) Moderate 09/20/2016 Appointment: Yarely Vega WPtel: [address] [facility] [place] (15 min) Moderate 09/20/2016 Patient Education: Patient Medication Summary Completed 09/06/2016 Appointment: Yarely Vega WPtel: [phone] [facility] [place] (15 min) Moderate 08/30/2016 Appointment: [...] concerns. 07/26/2016 Appointment: Yarely Vega WPtel: [phone] [facility] (15 min) Moderate 07/26/2016 Patient Education: [...] surrogate. 05/30/2016 Appointment: Brianna Otoole WPtel: [phone] [facility] [facility] - Annual Wellness Visit 05/30/2016 [...] bedtime 05/25/2016 Appointment: Yarely Vega WPtel: [phone] [facility] (15 min) Moderate 05/25/2016 Patient Education: Patient Medication Summary Completed 05/25/2016 Patient Education: Obesity Completed 05/25/2016 Care Plan: Referral Order SNOMED-CT : [id number] Pending 05/25/2016 Appointment: Injection 05/10/2016 Patient Education: Patient Medication Summary Completed 05/10/2016 Appointment: Injection 04/26/2016 Patient Education: Patient Medication Summary Completed 04/26/2016 Appointment: Injection 04/11/2016 Patient Education: Patient Medication Summary Completed 04/11/2016 Appointment: Injection 03/31/2016 Patient Education: Patient Medication Summary Completed 03/31/2016 Patient Education: Patient Medication Summary Completed 03/22/2016 Care Plan: SCREENINGMAMMOGRAPHYDIGITAL LOINC : 58541-9 Pending 03/22/2016 Appointment: Injection 03/15/2016 Patient Education: [...] concerns. 02/25/2016 Appointment: Brianna Otoole WPtel: [phone] [facility] [place] (15 min) Moderate 02/25/2016 Patient [...] the patients recent sleep study - recommended Vietnamese home patient eval of pt - nocturnal [...] the patients recent sleep study - recommended Vietnamese home patient eval of pt - nocturnal [...] than later. 10/12/2015 Appointment: Yarely Vega WPtel: [facility] (15 min) Moderate 10/12/2015 Patient Education: [...] Summary Completed 08/17/2015 Appointment: Yarely Vega WPtel: [facility] (15 min) Moderate 08/11/2015 Appointment: Injection [...] 2 05/19/2015 Appointment: Yarely Vega WPtel: [phone] [facility] (30 min) Complex 05/19/2015 Patient Education: [...] prn alprazolam. 01/13/2015 Appointment: Yarely Vega WPtel: [phone] [facility] [place] (15 min) Moderate 01/13/2015 Patient [...] current medications. 12/16/2014 Appointment: Janet F[facility] WPtel: [phone] [facility] [place] ([place]) New Patient 12/16/2014 Patient [...] assisted living facilities for her mom as aFiza's family is for assisted living placement sooner rather than later. . b12 injection . Hypertension - well [...] months based on previous levels of control. ask the heart doctor if there is [...] Fatigue/malaise -Pt was advsied to ask the Bag Patcher the following: ask the heart doctor if [...] DOPA paperwork for health care surrogate. . Chest Pain - pt states that [...] to post-nasal drainage - restart flonase . Xlgjin-ivposlhma-pmkmvyqv protonix-follow up with Dr Navarro as scheduled [...] not improved, or if symptoms acutely worsen. decrease topamax to one pill nightly . [...] their heart rate is becoming uncontrolled. . Low back pain- ongoing - will [...] is worsening or does not improve. . Skin tear and Cellulitis - The [...] insomnia. Anxiety - continue with prn alprazolam. increase norvasc from 5mg daily to 10mg [...] Fatigue/malaise -Pt was advsied to ask the Bag Patcher the following: ask the heart doctor if [...] situational exposure. No change in current medications. change priolosec to bedtime to see if [...] - cryotherapy of skin lesions x 2 talk to Heart doctor about possible amiodarone [...] wall. Fatigue - pt to discuss with Bag Patcher about the possibility of amiodarone causing her [...] the patients recent sleep study - recommended Vietnamese home patient eval of pt - nocturnal [...] the patients recent sleep study - recommended Vietnamese home patient eval of pt - nocturnal [...] her DOPA paperwork for health care surrogate. Reminder - please take the TOPAMAX daily [...] control. headaches - take topamax at bedtime use dry eye drops in the morning [...] follow expected course, or if any worse. womens probiotic - take one pill daily. [...]
--- OUTSIDE RECORDS SUMMARY | 2018-12-05 17:44 | XMS REPORT | CCD ---
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 Name Role Phone PP Unavailable CCM Unavailable Summary Purpose Interface Exchange Insurance Providers Payer name Policy type / Coverage type Covered alliance party ID Effective Begin Date Effective End Date WPS Medicare Part B Medicare Part B [id number] Unknown Principal Life Insurance Medicare Part B [id number] Unknown [employer] in [place] Medicare Part B [id number] Unknown Family history Brother Diagnosis Age At Onset Heart Attack Unknown Mother Diagnosis Age At Onset Hypertension Unknown kidney disease Unknown Stroke Unknown Father Diagnosis Age At Onset Arthritis Unknown Social History Social History Element Codes Description Effective Dates Employment Unknown Retired worked at [employer] 11/20/2017 Marital status Unknown Single 12/16/[address]: 3105659 Former smoker 12/16/[address]: 657304042 Never drinks alcohol 12/16/2014 Allergies, Adverse Reactions, Alerts Substance Reaction Codes Entered Date Inactivated Date Status CODEINE RxNorm: 2670 05/25/2016 No Inactive Date Active ciprofloxacin RxNorm: 77031 12/16/2014 No Inactive Date Active MORPHINE SULFATE [...] (vit B-12) 1,000 mcg/mL injection solution RxNorm: 494423 Milliliter(s) Inj 08/29/2018 08/29/2018 Inactive alprazolam 0.25 mg tablet RxNorm: 675773 1 Tablet(s) PO BID 08/21/2018 02/16/2019 Active albuterol sulfate 2.5 mg/3 mL (0.083 %) solution for nebulization RxNorm: 322691 3 Milliliter(s) INH Q6 PRN 08/15/2018 No Stop Date Active Aricept 10 mg tablet RxNorm: 023511 1 Tablet(s) PO daily 08/15/2018 08/09/2019 Active liothyronine 5 mcg tablet RxNorm: 753941 Tablet(s) TAKE 1 TABLET BY MOUTH TWICE DAILY 08/15/2018 02/10/2019 Active cyanocobalamin (vit B-12) 1,000 mcg/mL injection solution RxNorm: 585579 Milliliter(s) Inj 08/15/2018 08/15/2018 Inactive Kenalog 40 mg/mL suspension for injection RxNorm: 7544652 Milliliter(s) Inj 08/15/2018 08/15/2018 Inactive doxycycline hyclate 100 mg capsule RxNorm: 4380846 1 Capsule(s) PO BID 08/15/2018 08/24/2018 Inactive cyanocobalamin (vit B-12) 1,000 mcg/mL injection solution RxNorm: 531200 Milliliter(s) Inj 08/01/2018 08/01/2018 Inactive cyanocobalamin (vit B-12) 1,000 mcg/mL injection solution RxNorm: 305218 Milliliter(s) Inj 07/19/2018 07/19/2018 Inactive hydrocodone 5 mg-acetaminophen 325 mg tablet RxNorm: 997701 1-2 Tablet(s) PO Q6 as needed for pain 07/18/2018 08/15/2018 Inactive betamethasone valerate 0.1 % topical ointment RxNorm: 197111 1 TOP BID 07/04/2018 07/03/2018 Inactive applying to skin under nose x 10 days cyanocobalamin (vit B-12) 1,000 mcg/mL injection solution RxNorm: 736271 Milliliter(s) Inj 07/04/2018 07/04/2018 Inactive betamethasone valerate 0.1 % topical ointment RxNorm: 333293 1 TOP BID 07/04/2018 07/13/2018 Inactive applying to skin under nose x 10 days Aricept 10 mg tablet RxNorm: 195833 Tablet(s) 1 Tablet(s) PO daily 06/25/2018 08/14/2018 Inactive Flonase Allergy Relief 50 mcg/actuation nasal spray,suspension RxNorm: 0030173 [place] 1 [place] NASAL BID 06/20/2018 10/17/2018 Active cyanocobalamin (vit B-12) 1,000 mcg/mL injection solution RxNorm: 160397 Milliliter(s) Inj 06/20/2018 06/20/2018 Inactive hydrocodone 5 mg-acetaminophen 325 mg tablet RxNorm: 181996 1-2 Tablet(s) PO Q6 as needed for pain 06/20/2018 07/17/2018 Inactive cyanocobalamin (vit B-12) 1,000 mcg/mL injection solution RxNorm: 670992 Milliliter(s) Inj 06/06/2018 06/06/2018 Inactive alprazolam 0.25 mg tablet RxNorm: 672301 1 Tablet(s) PO BID 05/25/2018 08/21/2018 Inactive hydrocodone 5 mg-acetaminophen 325 mg tablet RxNorm: 223770 1-2 Tablet(s) PO Q6 as needed for pain 05/24/2018 06/19/2018 Inactive cyanocobalamin (vit B-12) 1,000 mcg/mL injection solution RxNorm: 445559 Milliliter(s) Inj 05/24/2018 05/24/2018 Inactive cyanocobalamin (vit B-12) 1,000 mcg/mL injection solution RxNorm: 776938 Milliliter(s) Inj 05/09/2018 05/09/2018 Inactive Claritin 10 mg tablet RxNorm: 589529 TAKE 1 TABLET BY MOUTH ONCE DAILY 05/08/2018 05/02/2019 Active Generic For:CLARITIN 10MG 05/07/2018 9:13:47 AM cyanocobalamin (vit B-12) 1,000 mcg/mL injection solution RxNorm: 692194 INJECT ONE 1 ML EVERY TWO WEEKS 05/03/2018 04/03/2019 Active 05/03/2018 9:13:42 AM Mobic 15 mg tablet RxNorm: 128393 Tablet(s) 1 Tablet(s) PO daily 04/26/2018 04/20/2019 Active buspirone 15 mg tablet RxNorm: 807300 Tablet(s) TAKE 1 TABLET BY MOUTH TWICE DAILY 04/26/2018 04/20/2019 Active Generic For:BUSPAR 15MG 05/31/2017 9:19:20 AM Norvasc 5 mg tablet RxNorm: 220932 Tablet(s) 1 Tablet(s) PO daily 04/26/2018 04/20/2019 Active cyanocobalamin (vit B-12) 1,000 mcg/mL injection solution RxNorm: 334897 Milliliter(s) Inj 04/26/2018 04/26/2018 Inactive hydrocodone 5 mg-acetaminophen 325 mg tablet RxNorm: 335436 1-2 Tablet(s) PO Q6 as needed for pain 04/25/2018 05/23/2018 Inactive cyanocobalamin (vit B-12) 1,000 mcg/mL injection solution RxNorm: 584588 Milliliter(s) Inj 04/12/2018 04/12/2018 Inactive Topamax 25 mg tablet RxNorm: 789422 1 Tablet(s) PO BID 04/09/2018 05/02/2018 Inactive Generic For:TOPAMAX 25MG 12/06/2016 9:15:13 AM Zoloft 50 mg tablet RxNorm: 779467 TAKE 1 TABLET BY MOUTH ONCE DAILY 04/04/2018 12/29/2018 Active Generic For:ZOLOFT 50MG 04/04/2018 9:13:25 AM cyanocobalamin (vit B-12) 1,000 mcg/mL injection solution RxNorm: 237734 Milliliter(s) Inj 03/30/2018 03/30/2018 Inactive levothyroxine 125 mcg tablet RxNorm: 760885 TAKE 1 TABLET BY MOUTH EVERY DAY 03/26/2018 09/21/2018 Active Generic For:SYNTHROID 125MCG TAB 03/26/2018 9:15:59 AM liothyronine 5 mcg tablet RxNorm: 173283 TAKE 1 TABLET BY MOUTH TWICE DAILY 03/26/2018 08/14/2018 Inactive Generic For:CYTOMEL 5MCG 03/26/2018 9:15:54 AM hydrocodone 5 mg-acetaminophen 325 mg tablet RxNorm: 260796 1-2 Tablet(s) PO Q6 as needed for pain 03/19/2018 04/17/2018 Inactive cyanocobalamin (vit B-12) 1,000 mcg/mL injection solution RxNorm: 227670 Milliliter(s) Inj 03/16/2018 03/16/2018 Inactive Flonase Allergy Relief 50 mcg/actuation nasal spray,suspension RxNorm: 7206123 1 [place] NASAL BID 03/05/2018 06/19/2018 Inactive cyanocobalamin (vit B-12) 1,000 mcg/mL injection solution RxNorm: 337496 Milliliter(s) Inj 03/02/2018 03/02/2018 Inactive alprazolam 0.25 mg tablet RxNorm: 742254 1 Tablet(s) PO BID 02/28/2018 05/27/2018 Inactive cyanocobalamin (vit B-12) 1,000 mcg/mL injection solution RxNorm: 847597 Milliliter(s) Inj 02/08/2018 02/08/2018 Inactive cyanocobalamin (vit B-12) 1,000 mcg/mL injection solution RxNorm: 221199 Milliliter(s) Inj 01/24/2018 01/24/2018 Inactive albuterol sulfate 2.5 mg/3 mL (0.083 %) solution for nebulization RxNorm: 638510 3 Milliliter(s) INH Q6 PRN 01/24/2018 05/02/2018 Inactive Claritin 10 mg tablet RxNorm: 866032 1 Tablet(s) PO daily 01/15/2018 05/07/2018 Inactive cyanocobalamin (vit B-12) 1,000 mcg/mL injection solution RxNorm: 396797 Milliliter(s) Inj 01/10/2018 01/10/2018 Inactive hydrocodone 5 mg-acetaminophen 325 mg tablet RxNorm: 599059 1-2 Tablet(s) PO Q6 as needed for pain 01/09/2018 02/07/2018 Inactive cyanocobalamin (vit B-12) 1,000 mcg/mL injection solution RxNorm: 400709 Milliliter(s) Inj 12/27/2017 12/27/2017 Inactive cyanocobalamin (vit B-12) 1,000 mcg/mL injection solution RxNorm: 097795 1 Milliliter(s) Inj 12/12/2017 12/12/2017 Inactive Zofran ODT 4 mg disintegrating tablet RxNorm: 857140 1 Tablet(s) PO TID as needed 12/08/2017 12/09/2017 Inactive hydrocodone 2.5 mg-guaifenesin 200 mg/5 mL oral solution RxNorm: 541814 5 Milliliter(s) PO 12/04/2017 05/06/2018 Inactive doxycycline hyclate 100 mg capsule RxNorm: 9811745 1 Capsule(s) PO BID 12/04/2017 12/13/2017 Inactive cyanocobalamin (vit B-12) 1,000 mcg/mL injection solution RxNorm: 827023 Milliliter(s) Inj 12/01/2017 12/01/2017 Inactive Flonase Allergy Relief 50 mcg/actuation nasal spray,suspension RxNorm: 5817248 1 [place] NASAL BID 11/20/2017 2018 Inactive cyanocobalamin (vit B-12) 1,000 mcg/mL injection solution RxNorm: 917114 1 Milliliter(s) Inj 11/17/2017 11/17/2017 Inactive hydrocodone 5 mg-acetaminophen 325 mg tablet RxNorm: 722664 1-2 Tablet(s) PO Q6 as needed for pain 11/16/2017 12/15/2017 Inactive cyanocobalamin (vit B-12) 1,000 mcg/mL injection solution RxNorm: 968812 1 Milliliter(s) Inj 11/02/2017 11/02/2017 Inactive hydrocodone 5 mg-acetaminophen 325 mg tablet RxNorm: 095045 1-2 Tablet(s) PO Q6 as needed for pain 10/25/2017 11/15/2017 Inactive Claritin 10 mg tablet RxNorm: 852700 1 Tablet(s) PO daily 10/25/2017 11/19/2017 Inactive albuterol sulfate 2.5 mg/3 mL (0.083 %) solution for nebulization RxNorm: 063334 3 Milliliter(s) INH Q6 PRN 10/25/2017 01/23/2018 Inactive Claritin 10 mg tablet RxNorm: 641429 1 Tablet(s) PO daily 10/25/2017 10/24/2017 Inactive cyanocobalamin (vit B-12) 1,000 mcg/mL injection solution RxNorm: 866520 1 Milliliter(s) Inj 10/20/2017 10/20/2017 Inactive Zoloft 50 mg tablet RxNorm: 414892 TAKE 1 TABLET BY MOUTH ONCE DAILY 10/13/2017 04/03/2018 Inactive Generic For:ZOLOFT 50MG 10/13/2017 8:59:44 AM cyanocobalamin (vit B-12) 1,000 mcg/mL injection solution RxNorm: 691352 Milliliter(s) Inj 10/06/2017 10/06/2017 Inactive liothyronine 5 mcg tablet RxNorm: 674239 TAKE 1 TABLET BY MOUTH TWICE DAILY 10/03/2017 03/25/2018 Inactive Generic For:CYTOMEL 5MCG 10/03/2017 9:13:38 AM cyanocobalamin (vit B-12) 1,000 mcg/mL injection solution RxNorm: 939955 Milliliter(s) Inj 09/21/2017 09/21/2017 Inactive albuterol sulfate 2.5 mg/3 mL (0.083 %) solution for nebulization RxNorm: 394368 3 Milliliter(s) INH Q6 PRN 09/21/2017 10/24/2017 Inactive hydrocodone 5 mg-acetaminophen 325 mg tablet RxNorm: 897921 1-2 Tablet(s) PO Q6 as needed for pain 09/21/2017 10/20/2017 Inactive Kenalog 40 mg/mL suspension for injection RxNorm: 1019680 Milliliter(s) Inj 09/15/2017 09/15/2017 Inactive Keflex 500 mg capsule RxNorm: 223390 1 Capsule(s) PO TID 09/07/2017 09/16/2017 Inactive Please deliver to patient cyanocobalamin (vit B-12) 1,000 mcg/mL injection solution RxNorm: 587110 Milliliter(s) Inj 09/07/2017 09/07/2017 Inactive alprazolam 0.25 mg tablet RxNorm: 910584 1 Tablet(s) PO BID 09/06/2017 02/27/2018 Inactive Aricept 10 mg tablet RxNorm: 225819 1 Tablet(s) PO daily 09/06/2017 06/24/2018 Inactive hydrocodone 5 mg-acetaminophen 325 mg tablet RxNorm: 797637 1-2 Tablet(s) PO Q6 as needed for pain 08/24/2017 09/20/2017 Inactive cyanocobalamin (vit B-12) 1,000 mcg/mL injection solution RxNorm: 697628 Milliliter(s) Inj 08/24/2017 08/24/2017 Inactive Norvasc 5 mg tablet RxNorm: 062009 1 Tablet(s) PO daily 08/18/2017 04/25/2018 Inactive nystatin 100,000 unit/gram topical powder RxNorm: 593922 1 Gram(s) TOP QID 08/17/2017 08/26/2017 Inactive hydrocodone 5 mg-acetaminophen 325 mg tablet RxNorm: 065133 1-2 Tablet(s) PO Q6 as needed for pain 07/25/2017 08/23/2017 Inactive Tamiflu 75 mg capsule RxNorm: 139917 1 Capsule(s) PO BID 07/24/2017 12/11/2017 Inactive nystatin 100,000 unit/gram topical powder RxNorm: 704115 1 Gram(s) TOP QID 07/14/2017 07/22/2017 Inactive levothyroxine 125 mcg tablet RxNorm: 516957 Tablet(s) 1 Tablet(s) PO daily 07/10/2017 01/05/2018 Inactive nystatin 100,000 unit/gram topical powder RxNorm: 453200 1 Gram(s) TOP QID 07/06/2017 07/13/2017 Inactive cyanocobalamin (vit B-12) 1,000 mcg/mL injection solution RxNorm: 503021 Milliliter(s) Inj 07/06/2017 07/06/2017 Inactive Kenalog 40 mg/mL suspension for injection RxNorm: 3330517 1 Milliliter(s) Inj 06/20/2017 06/20/2017 Inactive doxycycline hyclate 100 mg capsule RxNorm: 2217904 1 Capsule(s) PO BID 06/20/2017 06/26/2017 Inactive cyanocobalamin (vit B-12) 1,000 mcg/mL injection solution RxNorm: 589093 Milliliter(s) Inj 06/20/2017 06/20/2017 Inactive Keflex 500 mg capsule RxNorm: 296815 1 Capsule(s) PO TID 06/14/2017 06/23/2017 Inactive Please deliver to patient Mobic 15 mg tablet RxNorm: 097370 1 Tablet(s) PO daily 06/14/2017 04/25/2018 Inactive cyanocobalamin (vit B-12) 1,000 mcg/mL injection solution RxNorm: 942380 Milliliter(s) Inj 06/05/2017 06/05/2017 Inactive buspirone 15 mg tablet RxNorm: 546946 TAKE 1 TABLET BY MOUTH TWICE DAILY 05/31/2017 04/25/2018 Inactive Generic For:BUSPAR 15MG 05/31/2017 9:19:20 AM cyanocobalamin (vit B-12) 1,000 mcg/mL injection solution RxNorm: 176854 Milliliter(s) Inj 05/25/2017 05/25/2017 Inactive hydrocodone 5 mg-acetaminophen 325 mg tablet RxNorm: 631771 1-2 Tablet(s) PO Q6 as needed for pain 05/25/2017 06/23/2017 Inactive amiodarone 200 mg tablet RxNorm: 139122 1/2 Tablet(s) PO daily 05/22/2017 No Stop Date Active cardiology decreased to 100mg daily cyanocobalamin (vit B-12) 1,000 mcg/mL injection solution RxNorm: 528526 Milliliter(s) Inj 05/16/2017 05/16/2017 Inactive Zofran ODT 4 mg disintegrating tablet RxNorm: 322734 1 Tablet(s) PO TID as needed 05/03/2017 05/04/2017 Inactive hydrocodone 5 mg-acetaminophen 325 mg tablet RxNorm: 174629 1-2 Tablet(s) PO Q6 as needed for pain 05/01/2017 05/05/2017 Inactive cyanocobalamin (vit B-12) 1,000 mcg/mL injection solution RxNorm: 185433 1 Milliliter(s) Inj 05/01/2017 05/01/2017 Inactive cyanocobalamin (vit B-12) 1,000 mcg/mL injection solution RxNorm: 639782 INJECT ONE 1 ML EVERY TWO WEEKS 04/26/2017 12/04/2018 Active 04/26/2017 9:08:52 AM Zoloft 50 mg tablet RxNorm: 026356 Tablet(s) TAKE 1 TABLET BY MOUTH DAILY 04/25/2017 10/12/2017 Inactive Generic For:ZOLOFT 50MG cyanocobalamin (vit B-12) 1,000 mcg/mL injection solution RxNorm: 967838 Milliliter(s) Inj 04/18/2017 04/18/2017 Inactive liothyronine 5 mcg tablet RxNorm: 473155 1 Tablet(s) PO BID 04/13/2017 10/02/2017 Inactive cyanocobalamin (vit B-12) 1,000 mcg/mL injection solution RxNorm: 866104 Milliliter(s) Inj 04/06/2017 04/06/2017 Inactive hydrocodone 5 mg-acetaminophen 325 mg tablet RxNorm: 688248 1-2 Tablet(s) PO Q6 as needed for pain 04/06/2017 04/10/2017 Inactive cyanocobalamin (vit B-12) 1,000 mcg/mL injection solution RxNorm: 650509 Milliliter(s) Inj 03/22/2017 03/22/2017 Inactive alprazolam 0.25 mg tablet RxNorm: 425786 1 Tablet(s) PO BID 03/17/2017 12/11/2017 Inactive alprazolam 0.25 mg tablet RxNorm: 201439 1 Tablet(s) PO BID 03/16/2017 09/05/2017 Inactive hydrocodone 5 mg-acetaminophen 325 mg tablet RxNorm: 759200 1-2 Tablet(s) PO Q6 as needed for pain 03/09/2017 03/13/2017 Inactive cyanocobalamin (vit B-12) 1,000 mcg/mL injection solution RxNorm: 137027 Milliliter(s) Inj 03/09/2017 03/09/2017 Inactive cyanocobalamin (vit B-12) 1,000 mcg/mL injection solution RxNorm: 515113 Milliliter(s) Inj 02/23/2017 02/23/2017 Inactive cyanocobalamin (vit B-12) 1,000 mcg/mL injection solution RxNorm: 634093 Milliliter(s) Inj 02/09/2017 02/09/2017 Inactive hydrocodone 5 mg-acetaminophen 325 mg tablet RxNorm: 587064 1-2 Tablet(s) PO Q6 as needed for pain 02/08/2017 02/12/2017 Inactive Topamax 25 mg tablet RxNorm: 647738 1 Tablet(s) PO BID 01/23/2017 05/22/2017 Inactive Generic For:TOPAMAX 25MG 12/06/2016 9:15:13 AM cyanocobalamin (vit B-12) 1,000 mcg/mL injection solution RxNorm: 485791 Milliliter(s) Inj 01/23/2017 01/23/2017 Inactive cyanocobalamin (vit B-12) 1,000 mcg/mL injection solution RxNorm: 198628 Milliliter(s) Inj 01/10/2017 01/10/2017 Inactive hydrocodone 5 mg-acetaminophen 325 mg tablet RxNorm: 308245 1-2 Tablet(s) PO Q6 as needed for pain 01/09/2017 01/13/2017 Inactive cyanocobalamin (vit B-12) 1,000 mcg/mL injection solution RxNorm: 086156 1 Milliliter(s) Inj 12/28/2016 12/28/2016 Inactive cyanocobalamin (vit B-12) 1,000 mcg/mL injection solution RxNorm: 770400 Milliliter(s) Inj 12/14/2016 12/14/2016 Inactive buspirone 15 mg tablet RxNorm: 692492 1 Tablet(s) PO BID 12/12/2016 05/30/2017 Inactive hydrocodone 5 mg-acetaminophen 325 mg tablet RxNorm: 699797 1-2 Tablet(s) PO Q6 as needed for pain 12/08/2016 12/12/2016 Inactive Topamax 25 mg tablet RxNorm: 989038 TAKE 1 TABLET BY MOUTH EVERY DAY AT BEDTIME 12/06/2016 01/22/2017 Inactive Generic For:TOPAMAX 25MG 12/06/2016 9:15:13 AM Lac-Hydrin Five 5 % lotion RxNorm: 677205 1 Gram(s) TOP daily 12/02/2016 05/02/2018 Inactive cyanocobalamin (vit B-12) 1,000 mcg/mL injection solution RxNorm: 738145 Milliliter(s) Inj 11/24/2016 11/24/2016 Inactive Ceftin 500 mg tablet RxNorm: 236208 1 Tablet(s) PO BID 11/11/2016 06/13/2017 Inactive Cipro 500 mg tablet RxNorm: 326217 1 Tablet(s) PO BID 11/11/2016 11/10/2016 Inactive Cipro 500 mg tablet RxNorm: 398520 1 Tablet(s) PO BID 11/11/2016 11/11/2016 Inactive cyanocobalamin (vit B-12) 1,000 mcg/mL injection solution RxNorm: 437314 1 Milliliter(s) Inj 11/07/2016 11/07/2016 Inactive hydrocodone 5 mg-acetaminophen 325 mg tablet RxNorm: 788088 1-2 Tablet(s) PO Q6 as needed for pain 11/02/2016 11/06/2016 Inactive cyanocobalamin (vit B-12) 1,000 mcg/mL injection solution RxNorm: 959269 Milliliter(s) Inj 10/24/2016 10/24/2016 Inactive levothyroxine 125 mcg tablet RxNorm: 843987 Tablet(s) 1 Tablet(s) PO daily 10/24/2016 04/21/2017 Inactive liothyronine 5 mcg tablet RxNorm: 221347 1 Tablet(s) PO BID 10/24/2016 04/12/2017 Inactive hydrocodone 5 mg-acetaminophen 325 mg tablet RxNorm: 774615 1-2 Tablet(s) PO Q6 as needed for pain 10/17/2016 10/21/2016 Inactive Keflex 500 mg capsule RxNorm: 014939 1 Capsule(s) PO TID 10/07/2016 10/06/2016 Inactive Keflex 500 mg capsule RxNorm: 979391 1 Capsule(s) PO TID 10/07/2016 10/16/2016 Inactive Please deliver to patient cyanocobalamin (vit B-12) 1,000 mcg/mL injection solution RxNorm: 045498 1 Milliliter(s) Inj 09/29/2016 09/29/2016 Inactive alprazolam 0.25 mg tablet RxNorm: 754735 1 Tablet(s) PO BID 09/20/2016 03/16/2017 Inactive Cozaar 100 mg tablet RxNorm: 648562 1 Tablet(s) PO daily 09/14/2016 No Stop Date Active metoprolol tartrate 50 mg tablet RxNorm: 552158 1/2 Tablet(s) PO BID 09/14/2016 12/12/2016 Inactive Zoloft 50 mg tablet RxNorm: 337464 Tablet(s) TAKE 1 TABLET BY MOUTH DAILY 09/14/2016 03/12/2017 Inactive Generic For:ZOLOFT 50MG liothyronine 5 mcg tablet RxNorm: 456668 1 Tablet(s) PO BID 09/14/2016 10/23/2016 Inactive Calmoseptine 0.44 %-20.6 % topical ointment RxNorm: 105448 1 Application TOP BID and as needed to sore on buttocks 09/07/2016 No Stop Date Active cyanocobalamin (vit B-12) 1,000 mcg/mL injection solution RxNorm: 448757 Milliliter(s) Inj 08/29/2016 08/29/2016 Inactive hydrocodone 5 mg-acetaminophen 325 mg tablet RxNorm: 711163 1-2 Tablet(s) PO Q6 as needed for pain 08/29/2016 10/16/2016 Inactive levothyroxine 125 mcg tablet RxNorm: 000645 1 Tablet(s) PO daily 08/25/2016 10/23/2016 Inactive Topamax 25 mg tablet RxNorm: 054489 TAKE 1 TABLET BY MOUTH EVERY DAY AT BEDTIME 08/17/2016 12/05/2016 Inactive Generic For:TOPAMAX 25MG 08/17/2016 2:14:37 PM hydrocodone 5 mg-acetaminophen 325 mg tablet RxNorm: 261947 1-2 Tablet(s) PO Q6 as needed for pain 08/11/2016 08/28/2016 Inactive hydrocodone 5 mg-acetaminophen 325 mg tablet RxNorm: 870027 1 -2 Tablet(s) PO Q6 as needed for pain 08/11/2016 08/18/2016 Inactive hydrocodone 5 mg-acetaminophen 325 mg tablet RxNorm: 090286 1 Tablet(s) PO Q6 as needed for pain 08/05/2016 08/10/2016 Inactive cyanocobalamin (vit B-12) 1,000 mcg/mL injection solution RxNorm: 177923 Milliliter(s) Inj 08/04/2016 08/04/2016 Inactive Norvasc 10 mg tablet RxNorm: 492223 1 Tablet(s) PO daily 07/26/2016 07/20/2017 Inactive alprazolam 0.25 mg tablet RxNorm: 588064 1 Tablet(s) PO QHS 07/21/2016 09/19/2016 Inactive Norvasc 5 mg tablet RxNorm: 227564 1 Tablet(s) PO daily 07/21/2016 07/25/2016 Inactive levothyroxine 125 mcg tablet RxNorm: 932309 1 Tablet(s) PO daily 07/21/2016 12/11/2017 Inactive cyanocobalamin (vit B-12) 1,000 mcg/mL injection solution RxNorm: 159942 Milliliter(s) Inj 07/21/2016 07/21/2016 Inactive Zoloft 50 mg tablet RxNorm: 876388 Tablet(s) TAKE 1 TABLET BY MOUTH DAILY 07/21/2016 09/13/2016 Inactive Generic For:ZOLOFT 50MG cyanocobalamin (vit B-12) 1,000 mcg/mL injection solution RxNorm: 918580 1 Milliliter(s) Inj 07/05/2016 07/05/2016 Inactive cyanocobalamin (vit B-12) 1,000 mcg/mL injection solution RxNorm: 850704 1 Milliliter(s) Inj 06/22/2016 06/22/2016 Inactive cyanocobalamin (vit B-12) 1,000 mcg/mL injection solution RxNorm: 464252 Milliliter(s) Inj 06/09/2016 06/09/2016 Inactive Aricept 10 mg tablet RxNorm: 356453 1 Tablet(s) PO daily 05/27/2016 05/21/2017 Inactive Mobic 15 mg tablet RxNorm: 068811 1 Tablet(s) PO daily 05/27/2016 05/21/2017 Inactive levothyroxine 125 mcg tablet RxNorm: 066733 1 Tablet(s) PO daily 05/25/2016 07/20/2016 Inactive cyanocobalamin (vit B-12) 1,000 mcg/mL injection solution RxNorm: 066780 1 Milliliter(s) Inj 05/25/2016 05/25/2016 Inactive doxycycline hyclate 100 mg capsule RxNorm: 7518075 1 Capsule(s) PO BID 05/16/2016 05/15/2016 Inactive doxycycline hyclate 100 mg capsule RxNorm: 4238570 1 Capsule(s) PO BID 05/16/2016 05/22/2016 Inactive cyanocobalamin (vit B-12) 1,000 mcg/mL injection solution RxNorm: 269453 Milliliter(s) Inj 05/10/2016 05/10/2016 Inactive cyanocobalamin (vit B-12) 1,000 mcg/mL injection solution RxNorm: 538709 Milliliter(s) Inj 04/26/2016 04/26/2016 Inactive Topamax 25 mg tablet RxNorm: 612117 1 Tablet(s) PO QPM 04/22/2016 08/16/2016 Inactive cyanocobalamin (vit B-12) 1,000 mcg/mL injection solution RxNorm: 003470 Milliliter(s) 1 Milliliter(s) Inj [id number] 04/11/2016 12/31/2017 Inactive liothyronine 5 mcg tablet RxNorm: 340259 1 Tablet(s) PO BID 04/11/2016 09/13/2016 Inactive cyanocobalamin (vit B-12) 1,000 mcg/mL injection solution RxNorm: 718298 Milliliter(s) Inj 04/11/2016 04/11/2016 Inactive cyanocobalamin (vit B-12) 1,000 mcg/mL injection solution RxNorm: 083958 Milliliter(s) Inj 03/31/2016 03/31/2016 Inactive cyanocobalamin (vit B-12) 1,000 mcg/mL injection solution RxNorm: 744849 1 Milliliter(s) Inj 03/15/2016 03/15/2016 Inactive levothyroxine 125 mcg tablet RxNorm: 715455 1 Tablet(s) PO daily 2016 03/03/2016 Inactive levothyroxine 125 mcg tablet RxNorm: 086765 1 Tablet(s) PO daily 2016 05/24/2016 Inactive cyanocobalamin (vit B-12) 1,000 mcg/mL injection solution RxNorm: 428885 Milliliter(s) Inj 02/25/2016 02/25/2016 Inactive cyanocobalamin (vit B-12) 1,000 mcg/mL injection solution RxNorm: 390927 1 Milliliter(s) Inj 02/02/2016 02/02/2016 Inactive sucralfate 1 gram tablet RxNorm: 234074 1 Tablet(s) PO QHS 01/25/2016 No Stop Date Active amiodarone 200 mg tablet RxNorm: 386235 1/2 Tablet(s) PO BID 01/25/2016 05/21/2017 Inactive cyanocobalamin (vit B-12) 1,000 mcg/mL injection solution RxNorm: 218267 Milliliter(s) Inj 01/18/2016 01/18/2016 Inactive cyanocobalamin (vit B-12) 1,000 mcg/mL injection solution RxNorm: 623523 Milliliter(s) Inj 12/29/2015 12/29/2015 Inactive Topamax 25 mg tablet RxNorm: 669508 1 Tablet(s) PO QPM 12/08/2015 04/05/2016 Inactive cyanocobalamin (vit B-12) 1,000 mcg/mL injection solution RxNorm: 547698 Milliliter(s) Inj 12/08/2015 12/08/2015 Inactive Bactrim DS 800 mg-160 mg tablet RxNorm: 103805 1 Tablet(s) PO BID 11/23/2015 11/22/2015 Inactive cyanocobalamin (vit B-12) 1,000 mcg/mL injection solution RxNorm: 090226 Milliliter(s) Inj 11/23/2015 11/23/2015 Inactive Bactrim DS 800 mg-160 mg tablet RxNorm: 533522 1 Tablet(s) PO BID 11/23/2015 11/29/2015 Inactive cyanocobalamin (vit B-12) 1,000 mcg/mL injection solution RxNorm: 871142 Milliliter(s) Inj 11/11/2015 11/11/2015 Inactive amoxicillin 500 mg capsule RxNorm: 698148 1 Capsule(s) PO TID 11/10/2015 11/19/2015 Inactive Zithromax Z-Henrique 250 mg tablet RxNorm: 924772 1 Tablet(s) PO UD 11/10/2015 01/24/2016 Inactive zpack x 1 amoxicillin 500 mg capsule RxNorm: 218023 1 Capsule(s) PO TID 11/10/2015 11/09/2015 Inactive cyanocobalamin (vit B-12) 1,000 mcg/mL injection solution RxNorm: 869045 1 Milliliter(s) Inj 10/29/2015 10/29/2015 Inactive Artie 3 capsule RxNorm: 1 Capsule(s) PO QAM , 2 Capsules at noon, 1 Capsule QHS 10/13/2015 No Stop Date Active potassium chloride ER 20 mEq tablet,extended release RxNorm: 660812 2 Tablet(s) PO daily at noon 10/13/2015 No Stop Date Active alprazolam 0.25 mg tablet RxNorm: 501741 1 Tablet(s) PO QHS 10/13/2015 07/20/2016 Inactive amiodarone 200 mg tablet RxNorm: 147051 1 Tablet(s) PO BID 10/13/2015 01/24/2016 Inactive cyanocobalamin (vit B-12) 1,000 mcg/mL injection solution RxNorm: 019682 1 Milliliter(s) Inj 10/12/2015 10/12/2015 Inactive Zofran 4 mg tablet RxNorm: 804632 1 Tablet(s) PO daily as needed 10/07/2015 05/24/2016 Inactive Zoloft 50 mg tablet RxNorm: 341279 TAKE 1 TABLET BY MOUTH DAILY 10/05/2015 05/01/2016 Inactive Generic For:ZOLOFT 50MG cyanocobalamin (vit B-12) 1,000 mcg/mL injection solution RxNorm: 232249 1 Milliliter(s) Inj 09/29/2015 09/29/2015 Inactive cyanocobalamin (vit B-12) 1,000 mcg/mL injection solution RxNorm: 504263 1 Milliliter(s) Inj 09/17/2015 09/17/2015 Inactive Norvasc 5 mg tablet RxNorm: 686818 1 Tablet(s) PO daily 09/17/2015 07/20/2016 Inactive liothyronine 5 mcg tablet RxNorm: 896760 1 Tablet(s) PO BID 09/17/2015 03/14/2016 Inactive Zoloft 50 mg tablet RxNorm: 581675 1 Tablet(s) PO daily 09/17/2015 10/04/2015 Inactive buspirone 15 mg tablet RxNorm: 609667 1 Tablet(s) PO BID 09/17/2015 09/10/2016 Inactive buspirone 15 mg tablet RxNorm: 416174 1 Tablet(s) PO BID 09/14/2015 09/16/2015 Inactive Topamax 25 mg tablet RxNorm: 346570 1 Tablet(s) PO QPM 09/03/2015 12/07/2015 Inactive cyanocobalamin (vit B-12) 1,000 mcg/mL injection solution RxNorm: 596938 1 Milliliter(s) Inj 09/03/2015 09/03/2015 Inactive cyanocobalamin (vit B-12) 1,000 mcg/mL injection solution RxNorm: 547443 Milliliter(s) Inj 08/17/2015 08/17/2015 Inactive cyanocobalamin (vit B-12) 1,000 mcg/mL injection solution RxNorm: 754993 Milliliter(s) Inj 08/06/2015 08/06/2015 Inactive levothyroxine 150 mcg tablet RxNorm: 638678 1 Tablet(s) PO daily 07/22/2015 03/03/2016 Inactive Aricept 10 mg tablet RxNorm: 647621 1 Tablet(s) PO daily 07/22/2015 05/26/2016 Inactive Mobic 15 mg tablet RxNorm: 644924 1 Tablet(s) PO daily 07/22/2015 05/26/2016 Inactive cyanocobalamin (vit B-12) 1,000 mcg/mL injection solution RxNorm: 441868 Milliliter(s) Inj 07/22/2015 07/22/2015 Inactive liothyronine 5 mcg tablet RxNorm: 982938 1 Tablet(s) PO BID 07/22/2015 09/16/2015 Inactive cyanocobalamin (vit B-12) 1,000 mcg/mL injection solution RxNorm: 613538 Milliliter(s) Inj 07/08/2015 07/08/2015 Inactive cyanocobalamin (vit B-12) 1,000 mcg/mL injection solution RxNorm: 411723 Milliliter(s) Inj 06/23/2015 06/23/2015 Inactive cyanocobalamin (vit B-12) 1,000 mcg/mL injection solution RxNorm: 655439 1 Milliliter(s) Inj 06/08/2015 06/08/2015 Inactive cyanocobalamin (vit B-12) 1,000 mcg/mL injection solution RxNorm: 623321 Milliliter(s) Inj 05/27/2015 05/27/2015 Inactive Aricept 10 mg tablet RxNorm: 189362 1 Tablet(s) PO daily 05/20/2015 07/21/2015 Inactive Zofran 4 mg tablet RxNorm: 671332 1 Tablet(s) PO daily as needed 05/20/2015 06/18/2015 Inactive alprazolam 0.25 mg tablet RxNorm: 281455 1 Tablet(s) PO BID 05/20/2015 10/12/2015 Inactive Mobic 15 mg tablet RxNorm: 879182 1 Tablet(s) PO daily 05/20/2015 07/21/2015 Inactive tramadol ER 100 mg tablet,extended release 24 hr RxNorm: 248926 1 Tablet(s) PO Q6 as needed 05/13/2015 No Stop Date Active cyanocobalamin (vit B-12) 1,000 mcg/mL injection solution RxNorm: 061250 1 Milliliter(s) Inj 05/12/2015 05/12/2015 Inactive Topamax 25 mg tablet RxNorm: 428816 1 Tablet(s) PO BID (start at one pill at bedtime x 1week then twice daily thereafter) 05/12/2015 09/02/2015 Inactive cyanocobalamin (vit B-12) 1,000 mcg/mL injection kit RxNorm: 331638 kit Inj 04/30/2015 04/30/2015 Inactive cyanocobalamin (vit B-12) 1,000 mcg/mL injection solution RxNorm: 135540 Milliliter(s) Inj 04/16/2015 04/16/2015 Inactive levothyroxine 150 mcg tablet RxNorm: 193229 1 Tablet(s) PO daily 04/08/2015 07/21/2015 Inactive cyanocobalamin (vit B-12) 1,000 mcg/mL injection solution RxNorm: 738856 Milliliter(s) 1 Milliliter(s) Inj [id number] 04/08/2015 04/10/2016 Inactive Cytomel 5 mcg tablet RxNorm: 254148 1 Tablet(s) PO BID 04/08/2015 10/12/2015 Inactive Cytomel 5 mcg tablet RxNorm: 155804 1 Tablet(s) PO BID 04/07/2015 04/07/2015 Inactive Cytomel 5 mcg tablet RxNorm: 322936 1 Tablet(s) PO BID 04/07/2015 04/06/2015 Inactive cyanocobalamin (vit B-12) 1,000 mcg/mL injection solution RxNorm: 437027 Milliliter(s) Inj 04/02/2015 04/02/2015 Inactive cyanocobalamin (vit B-12) 1,000 mcg/mL injection solution RxNorm: 642874 Milliliter(s) Inj 03/18/2015 03/18/2015 Inactive cyanocobalamin (vit B-12) 1,000 mcg/mL injection solution RxNorm: 662320 Milliliter(s) 1 Milliliter(s) Inj [id number] 03/18/2015 04/07/2015 Inactive cyanocobalamin (vit B-12) 1,000 mcg/mL injection solution RxNorm: 049152 1 Milliliter(s) Inj [id number] 03/16/2015 03/17/2015 Inactive cyanocobalamin (vit B-12) 1,000 mcg/mL injection solution RxNorm: 526159 Milliliter(s) Inj 03/03/2015 03/03/2015 Inactive cyanocobalamin (vit B-12) 1,000 mcg/mL injection solution RxNorm: 795117 Milliliter(s) Inj 02/18/2015 02/18/2015 Inactive cyanocobalamin (vit B-12) 1,000 mcg/mL injection solution RxNorm: 857912 Milliliter(s) Inj 02/04/2015 02/04/2015 Inactive cyanocobalamin (vit B-12) 1,000 mcg/mL injection solution RxNorm: 204760 Milliliter(s) Inj 01/22/2015 01/22/2015 Inactive Lac-Hydrin Five 5 % lotion RxNorm: 264875 1 TOP daily 01/13/2015 03/13/2015 Inactive Lac-Hydrin Five 5 % lotion RxNorm: 393404 1 TOP daily 01/13/2015 01/12/2015 Inactive cyanocobalamin (vit B-12) 1,000 mcg/mL injection solution RxNorm: 721716 Milliliter(s) Inj 01/08/2015 01/08/2015 Inactive cyanocobalamin (vit B-12) 1,000 mcg/mL injection solution RxNorm: 467790 Milliliter(s) Inj 12/25/2014 12/25/2014 Inactive levothyroxine 150 mcg tablet RxNorm: 480032 1 Tablet(s) PO daily 12/24/2014 04/07/2015 Inactive tramadol 50 mg tablet RxNorm: 829926 1-2 Tablet(s) PO Q6 as needed 12/17/2014 05/12/2015 Inactive alprazolam 0.25 mg tablet RxNorm: 322558 1 Tablet(s) PO BID 12/17/2014 04/15/2015 Inactive Pradaxa 150 mg capsule RxNorm: 7322888 1 Capsule(s) PO BID 12/16/2014 No Stop Date Active metoprolol tartrate 50 mg tablet RxNorm: 307786 1/2 Tablet(s) PO BID 12/16/2014 09/13/2016 Inactive buspirone 15 mg tablet RxNorm: 820524 1 Tablet(s) PO BID 12/16/2014 09/13/2015 Inactive cyanocobalamin (vit B-12) 1,000 mcg/mL injection solution RxNorm: 836177 1 Milliliter(s) Inj [id number] 12/16/2014 03/15/2015 Inactive cyanocobalamin (vit B-12) 1,000 mcg/mL injection solution RxNorm: 314003 1 Milliliter(s) Inj O8ywyno 12/16/2014 12/15/2014 Inactive sucralfate 1 gram tablet RxNorm: 382974 Tablet(s) PO QID 12/16/2014 12/10/2015 Inactive cyanocobalamin (vit B-12) 1,000 mcg/mL injection solution RxNorm: 184532 Milliliter(s) Inj 12/10/2014 12/10/2014 Inactive cyanocobalamin (vit B-12) 1,000 mcg/mL injection solution RxNorm: 841974 Milliliter(s) Inj 11/26/2014 11/26/2014 Inactive Zoloft 50 mg tablet RxNorm: 471288 1 Tablet(s) PO daily 11/24/2014 06/21/2015 Inactive Zoloft 50 mg tablet RxNorm: 277438 1 Tablet(s) PO daily 11/24/2014 11/23/2014 Inactive cyanocobalamin (vit B-12) 1,000 mcg/mL injection kit RxNorm: 698073 Milliliter(s) Inj 11/12/2014 11/12/2014 Inactive cyanocobalamin (vit B-12) 1,000 mcg/mL injection solution RxNorm: 411526 Milliliter(s) Inj 10/28/2014 10/28/2014 Inactive [SAVINGS FOR NON-COVERED DRUGS -- BIN:[id number], PCN: [id number], Group: [id number], ID# [id number], Questions: . THIS IS NOT INSURANCE.] promethazine oral RxNorm: 8745 oral No Start Date Active tramadol 50 mg tablet RxNorm: 829682 1 Tablet(s) PO TID No Start Date Active digoxin 125 mcg tablet RxNorm: 324303 Tablet(s) PO every other day No Start Date Active furosemide 40 mg tablet RxNorm: 097849 1 Tablet(s) PO daily No Start Date Active Vitamin D3 5,000 unit tablet RxNorm: 013635 1 Tablet(s) PO daily No Start Date Active erythromycin 250 mg capsule,delayed release RxNorm: 424744 1 Capsule(s) PO AC No Start Date Active Protonix 40 mg tablet,delayed release RxNorm: 030478 1 Tablet(s) PO BID No Start Date Active Cozaar 100 mg tablet RxNorm: 936571 1 Tablet(s) PO daily No Start Date 09/13/2016 Inactive sucralfate 1 gram tablet RxNorm: 425257 Tablet(s) PO QID No Start Date 12/15/2014 Inactive amiodarone 200 mg tablet RxNorm: 748793 2 Tablet(s) PO daily No Start Date 10/13/2015 Inactive buspirone 15 mg tablet RxNorm: 803484 1 Tablet(s) PO daily No Start Date 12/15/2014 Inactive potassium chloride ER 20 mEq tablet,extended release RxNorm: 212941 1 Tablet(s) PO daily No Start Date 10/12/2015 Inactive Prilosec 40 mg capsule,delayed release RxNorm: 083237 1 Capsule(s) PO daily No Start Date 09/02/2015 Inactive Artie 3 capsule RxNorm: Capsule(s) PO No Start Date 10/12/2015 Inactive alprazolam 0.25 mg tablet RxNorm: 249024 Tablet(s) PO QHS No Start Date 12/16/2014 Inactive levothyroxine 125 mcg tablet RxNorm: 879566 1 Tablet(s) PO daily No Start Date 12/23/2014 Inactive liothyronine 5 mcg tablet RxNorm: 082029 1 Tablet(s) PO BID No Start Date 07/21/2015 Inactive Mobic 15 mg tablet RxNorm: 092262 Tablet(s) PO daily No Start Date 05/19/2015 Inactive Norvasc 5 mg tablet RxNorm: 303889 1 Tablet(s) PO daily No Start Date 09/16/2015 Inactive Zofran 4 mg tablet RxNorm: 823224 1 Tablet(s) PO daily as needed No Start Date 05/19/2015 Inactive Tamiflu 75 mg capsule RxNorm: 772207 1 Capsule(s) PO BID No Start Date 07/23/2017 Inactive tramadol 50 mg tablet RxNorm: 805645 1 Tablet(s) PO daily as needed No Start Date 12/16/2014 Inactive amiodarone 200 mg tablet RxNorm: 467659 1 Tablet(s) PO daily No Start Date 10/12/2015 Inactive Zofran ODT 4 mg disintegrating tablet RxNorm: 983932 1 Tablet(s) PO TID as needed No Start Date 05/02/2017 Inactive albuterol sulfate 2.5 mg/3 mL (0.083 %) solution for nebulization RxNorm: 519303 3 Milliliter(s) INH Q6 PRN No Start Date 09/20/2017 Inactive meclizine 25 mg tablet RxNorm: 770374 Tablet(s) PO as needed No Start Date 05/24/2016 Inactive Pradaxa 150 mg capsule RxNorm: 0815677 1 Capsule(s) PO daily No Start Date 12/15/2014 Inactive metoprolol tartrate 50 mg tablet RxNorm: 435692 1/2 Tablet(s) PO No Start Date 12/15/2014 Inactive Aricept 10 mg tablet RxNorm: 375052 Tablet(s) PO daily No Start Date 05/19/2015 Inactive Calmoseptine 0.44 %-20.6 % topical ointment RxNorm: 724503 1 Application TOP BID and as needed to sore on buttocks No Start Date 09/06/2016 Inactive Zithromax Z-Henrique 250 mg tablet RxNorm: 575295 1 Tablet(s) PO UD No Start Date 11/09/2015 Inactive zpack x 1 Medication Administered Medication Codes Instructions Start Date Status cyanocobalamin (vit B-12) 1,000 mcg/mL injection solution RxNorm: 846044 Milliliter 08/29/2018 No longer Active cyanocobalamin (vit B-12) 1,000 mcg/mL injection solution RxNorm: 375888 Milliliter 08/15/2018 No longer Active Kenalog 40 mg/mL suspension for injection RxNorm: 4161582 Milliliter 08/15/2018 No longer Active cyanocobalamin (vit B-12) 1,000 mcg/mL injection solution RxNorm: 505506 Milliliter 08/01/2018 No longer Active cyanocobalamin (vit B-12) 1,000 mcg/mL injection solution RxNorm: 520648 Milliliter 07/19/2018 No longer Active cyanocobalamin (vit B-12) 1,000 mcg/mL injection solution RxNorm: 553544 Milliliter 07/04/2018 No longer Active cyanocobalamin (vit B-12) 1,000 mcg/mL injection solution RxNorm: 587076 Milliliter 06/20/2018 No longer Active cyanocobalamin (vit B-12) 1,000 mcg/mL injection solution RxNorm: 799133 Milliliter 06/06/2018 No longer Active cyanocobalamin (vit B-12) 1,000 mcg/mL injection solution RxNorm: 667010 Milliliter 05/24/2018 No longer Active cyanocobalamin (vit B-12) 1,000 mcg/mL injection solution RxNorm: 093009 Milliliter 05/09/2018 No longer Active cyanocobalamin (vit B-12) 1,000 mcg/mL injection solution RxNorm: 637205 Milliliter 04/26/2018 No longer Active cyanocobalamin (vit B-12) 1,000 mcg/mL injection solution RxNorm: 948790 Milliliter 04/12/2018 No longer Active cyanocobalamin (vit B-12) 1,000 mcg/mL injection solution RxNorm: 570446 Milliliter 03/30/2018 No longer Active cyanocobalamin (vit B-12) 1,000 mcg/mL injection solution RxNorm: 300836 Milliliter 03/16/2018 No longer Active cyanocobalamin (vit B-12) 1,000 mcg/mL injection solution RxNorm: 537643 Milliliter 03/02/2018 No longer Active cyanocobalamin (vit B-12) 1,000 mcg/mL injection solution RxNorm: 536827 Milliliter 02/08/2018 No longer Active cyanocobalamin (vit B-12) 1,000 mcg/mL injection solution RxNorm: 189992 Milliliter 01/24/2018 No longer Active cyanocobalamin (vit B-12) 1,000 mcg/mL injection solution RxNorm: 903601 Milliliter 01/10/2018 No longer Active cyanocobalamin (vit B-12) 1,000 mcg/mL injection solution RxNorm: 533537 Milliliter 12/27/2017 No longer Active cyanocobalamin (vit B-12) 1,000 mcg/mL injection solution RxNorm: 263993 1Milliliter 12/12/2017 No longer Active cyanocobalamin (vit B-12) 1,000 mcg/mL injection solution RxNorm: 290480 Milliliter 12/01/2017 No longer Active cyanocobalamin (vit B-12) 1,000 mcg/mL injection solution RxNorm: 389902 1Milliliter 11/17/2017 No longer Active cyanocobalamin (vit B-12) 1,000 mcg/mL injection solution RxNorm: 301698 1Milliliter 11/02/2017 No longer Active cyanocobalamin (vit B-12) 1,000 mcg/mL injection solution RxNorm: 217675 1Milliliter 10/20/2017 No longer Active cyanocobalamin (vit B-12) 1,000 mcg/mL injection solution RxNorm: 785905 Milliliter 10/06/2017 No longer Active cyanocobalamin (vit B-12) 1,000 mcg/mL injection solution RxNorm: 896800 Milliliter 09/21/2017 No longer Active Kenalog 40 mg/mL suspension for injection RxNorm: 4411125 Milliliter 09/15/2017 No longer Active cyanocobalamin (vit B-12) 1,000 mcg/mL injection solution RxNorm: 286733 Milliliter 09/07/2017 No longer Active cyanocobalamin (vit B-12) 1,000 mcg/mL injection solution RxNorm: 884777 Milliliter 08/24/2017 No longer Active cyanocobalamin (vit B-12) 1,000 mcg/mL injection solution RxNorm: 423237 Milliliter 07/06/2017 No longer Active Kenalog 40 mg/mL suspension for injection RxNorm: 3888247 1Milliliter 06/20/2017 No longer Active cyanocobalamin (vit B-12) 1,000 mcg/mL injection solution RxNorm: 813471 Milliliter 06/20/2017 No longer Active cyanocobalamin (vit B-12) 1,000 mcg/mL injection solution RxNorm: 833933 Milliliter 06/05/2017 No longer Active cyanocobalamin (vit B-12) 1,000 mcg/mL injection solution RxNorm: 440209 Milliliter 05/25/2017 No longer Active cyanocobalamin (vit B-12) 1,000 mcg/mL injection solution RxNorm: 631892 Milliliter 05/16/2017 No longer Active cyanocobalamin (vit B-12) 1,000 mcg/mL injection solution RxNorm: 838705 1Milliliter 05/01/2017 No longer Active cyanocobalamin (vit B-12) 1,000 mcg/mL injection solution RxNorm: 501896 Milliliter 04/18/2017 No longer Active cyanocobalamin (vit B-12) 1,000 mcg/mL injection solution RxNorm: 295762 Milliliter 04/06/2017 No longer Active cyanocobalamin (vit B-12) 1,000 mcg/mL injection solution RxNorm: 710239 Milliliter 03/22/2017 No longer Active cyanocobalamin (vit B-12) 1,000 mcg/mL injection solution RxNorm: 062416 Milliliter 03/09/2017 No longer Active cyanocobalamin (vit B-12) 1,000 mcg/mL injection solution RxNorm: 572617 Milliliter 02/23/2017 No longer Active cyanocobalamin (vit B-12) 1,000 mcg/mL injection solution RxNorm: 151806 Milliliter 02/09/2017 No longer Active cyanocobalamin (vit B-12) 1,000 mcg/mL injection solution RxNorm: 894949 Milliliter 01/23/2017 No longer Active cyanocobalamin (vit B-12) 1,000 mcg/mL injection solution RxNorm: 206720 Milliliter 01/10/2017 No longer Active cyanocobalamin (vit B-12) 1,000 mcg/mL injection solution RxNorm: 111737 1Milliliter 12/28/2016 No longer Active cyanocobalamin (vit B-12) 1,000 mcg/mL injection solution RxNorm: 126407 Milliliter 12/14/2016 No longer Active cyanocobalamin (vit B-12) 1,000 mcg/mL injection solution RxNorm: 433973 Milliliter 11/24/2016 No longer Active cyanocobalamin (vit B-12) 1,000 mcg/mL injection solution RxNorm: 759663 1Milliliter 11/07/2016 No longer Active cyanocobalamin (vit B-12) 1,000 mcg/mL injection solution RxNorm: 230445 Milliliter 10/24/2016 No longer Active cyanocobalamin (vit B-12) 1,000 mcg/mL injection solution RxNorm: 633328 1Milliliter 09/29/2016 No longer Active cyanocobalamin (vit B-12) 1,000 mcg/mL injection solution RxNorm: 191252 Milliliter 08/29/2016 No longer Active cyanocobalamin (vit B-12) 1,000 mcg/mL injection solution RxNorm: 996603 Milliliter 08/04/2016 No longer Active cyanocobalamin (vit B-12) 1,000 mcg/mL injection solution RxNorm: 577303 Milliliter 07/21/2016 No longer Active cyanocobalamin (vit B-12) 1,000 mcg/mL injection solution RxNorm: 018133 1Milliliter 07/05/2016 No longer Active cyanocobalamin (vit B-12) 1,000 mcg/mL injection solution RxNorm: 199246 1Milliliter 06/22/2016 No longer Active cyanocobalamin (vit B-12) 1,000 mcg/mL injection solution RxNorm: 373062 Milliliter 06/09/2016 No longer Active cyanocobalamin (vit B-12) 1,000 mcg/mL injection solution RxNorm: 749751 1Milliliter 05/25/2016 No longer Active cyanocobalamin (vit B-12) 1,000 mcg/mL injection solution RxNorm: 341015 Milliliter 05/10/2016 No longer Active cyanocobalamin (vit B-12) 1,000 mcg/mL injection solution RxNorm: 602926 Milliliter 04/26/2016 No longer Active cyanocobalamin (vit B-12) 1,000 mcg/mL injection solution RxNorm: 336525 Milliliter 04/11/2016 No longer Active cyanocobalamin (vit B-12) 1,000 mcg/mL injection solution RxNorm: 850171 Milliliter 03/31/2016 No longer Active cyanocobalamin (vit B-12) 1,000 mcg/mL injection solution RxNorm: 001194 1Milliliter 03/15/2016 No longer Active cyanocobalamin (vit B-12) 1,000 mcg/mL injection solution RxNorm: 833709 Milliliter 02/25/2016 No longer Active cyanocobalamin (vit B-12) 1,000 mcg/mL injection solution RxNorm: 010140 1Milliliter 02/02/2016 No longer Active cyanocobalamin (vit B-12) 1,000 mcg/mL injection solution RxNorm: 488625 Milliliter 01/18/2016 No longer Active cyanocobalamin (vit B-12) 1,000 mcg/mL injection solution RxNorm: 841624 Milliliter 12/29/2015 No longer Active cyanocobalamin (vit B-12) 1,000 mcg/mL injection solution RxNorm: 279494 Milliliter 12/08/2015 No longer Active cyanocobalamin (vit B-12) 1,000 mcg/mL injection solution RxNorm: 622930 Milliliter 11/23/2015 No longer Active cyanocobalamin (vit B-12) 1,000 mcg/mL injection solution RxNorm: 691632 Milliliter 11/11/2015 No longer Active cyanocobalamin (vit B-12) 1,000 mcg/mL injection solution RxNorm: 939964 1Milliliter 10/29/2015 No longer Active cyanocobalamin (vit B-12) 1,000 mcg/mL injection solution RxNorm: 862597 1Milliliter 10/12/2015 No longer Active cyanocobalamin (vit B-12) 1,000 mcg/mL injection solution RxNorm: 049357 1Milliliter 09/29/2015 No longer Active cyanocobalamin (vit B-12) 1,000 mcg/mL injection solution RxNorm: 633907 1Milliliter 09/17/2015 No longer Active cyanocobalamin (vit B-12) 1,000 mcg/mL injection solution RxNorm: 389316 1Milliliter 09/03/2015 No longer Active cyanocobalamin (vit B-12) 1,000 mcg/mL injection solution RxNorm: 455007 Milliliter 08/17/2015 No longer Active cyanocobalamin (vit B-12) 1,000 mcg/mL injection solution RxNorm: 838848 Milliliter 08/06/2015 No longer Active cyanocobalamin (vit B-12) 1,000 mcg/mL injection solution RxNorm: 202330 Milliliter 07/22/2015 No longer Active cyanocobalamin (vit B-12) 1,000 mcg/mL injection solution RxNorm: 518184 Milliliter 07/08/2015 No longer Active cyanocobalamin (vit B-12) 1,000 mcg/mL injection solution RxNorm: 316603 Milliliter 06/23/2015 No longer Active cyanocobalamin (vit B-12) 1,000 mcg/mL injection solution RxNorm: 479381 1Milliliter 06/08/2015 No longer Active cyanocobalamin (vit B-12) 1,000 mcg/mL injection solution RxNorm: 633904 Milliliter 05/27/2015 No longer Active cyanocobalamin (vit B-12) 1,000 mcg/mL injection solution RxNorm: 039153 1Milliliter 05/12/2015 No longer Active cyanocobalamin (vit B-12) 1,000 mcg/mL injection kit RxNorm: 172458 kit 04/30/2015 No longer Active cyanocobalamin (vit B-12) 1,000 mcg/mL injection solution RxNorm: 472841 Milliliter 04/16/2015 No longer Active cyanocobalamin (vit B-12) 1,000 mcg/mL injection solution RxNorm: 970808 Milliliter 04/02/2015 No longer Active cyanocobalamin (vit B-12) 1,000 mcg/mL injection solution RxNorm: 093381 Milliliter 03/18/2015 No longer Active cyanocobalamin (vit B-12) 1,000 mcg/mL injection solution RxNorm: 524234 Milliliter 03/03/2015 No longer Active cyanocobalamin (vit B-12) 1,000 mcg/mL injection solution RxNorm: 683943 Milliliter 02/18/2015 No longer Active cyanocobalamin (vit B-12) 1,000 mcg/mL injection solution RxNorm: 366811 Milliliter 02/04/2015 No longer Active cyanocobalamin (vit B-12) 1,000 mcg/mL injection solution RxNorm: 275374 Milliliter 01/22/2015 No longer Active cyanocobalamin (vit B-12) 1,000 mcg/mL injection solution RxNorm: 210220 Milliliter 01/08/2015 No longer Active cyanocobalamin (vit B-12) 1,000 mcg/mL injection solution RxNorm: 711840 Milliliter 12/25/2014 No longer Active cyanocobalamin (vit B-12) 1,000 mcg/mL injection solution RxNorm: 793436 Milliliter 12/10/2014 No longer Active cyanocobalamin (vit B-12) 1,000 mcg/mL injection solution RxNorm: 346543 Milliliter 11/26/2014 No longer Active cyanocobalamin (vit B-12) 1,000 mcg/mL injection kit RxNorm: 097579 Milliliter 11/12/2014 No longer Active cyanocobalamin (vit B-12) 1,000 mcg/mL injection solution RxNorm: 781440 Milliliter 10/28/2014 No longer Active Immunizations Vaccine [...] Observation Code Item Item Code Result Date Lipid Ord30 CHOL 174 mg/dL 05/29/2018 Lipid Ord30 HDL 49.0 mg/dl 05/29/2018 Lipid Ord30 TRIG 200 mg/dL 05/29/2018 Lipid Ord30 LDL 85 mg/dL 05/29/2018 Lipid Ord30 C/HDL 3.6 Ratio 05/29/2018 Tsh Ord6 TSH (3rd IS) 3.20 uIU/mL 02/26/2018 Free T4 Ooe142 FREE T4 0.99 ng/dL 02/26/2018 Cbc With [...] 28.5 pg 02/26/2018 Cbc With Differential Ord2 [place]% 10.3 % 02/26/2018 Cbc With Differential Ord2 [...] 1.80 K/ul 02/26/2018 Cbc With Differential Ord2 [place] ABS# 0.7 K/ul 02/26/2018 Cbc With Differential Ord2 Eos ABS# 0.2 K/ul 02/26/2018 Cbc With Differential Ord2 Baso ABS# 0.0 K/ul 02/26/2018 B12 Rks160 B12 889.00 pg/ml 02/26/2018 Digoxin Ord9 DIGOXIN 0.7 NG/ML 11/23/2017 Comp Metabolic Hmb218 NA 142 mEq/L 11/23/2017 Comp Metabolic Wbh792 K 4.9 mEq/L 11/23/2017 Comp Metabolic Mnt145 CL 112 mEq/L 11/23/2017 Comp Metabolic Qkv904 CO2 18.0 mEq/L 11/23/2017 Comp Metabolic Bzu649 ANION GAP 17 11/23/2017 Comp Metabolic Tgy082 GLUCOSE 123 mg/dL 11/23/2017 Comp Metabolic Hhm247 Creat 1.0 mg/dL 11/23/2017 Comp Metabolic Dqj825 eGFR 59 ml/min/1.73m2 11/23/2017 Comp Metabolic Ghp615 BUN 24 mg/dL 11/23/2017 Comp Metabolic Dfh870 B/C Ratio 25.0 Ratio 11/23/2017 Comp Metabolic Dqs318 CALCIUM 9.4 mg/dL 11/23/2017 Comp Metabolic Yzg401 ALK PHOS 56 U/L 11/23/2017 Comp Metabolic Rkd680 AST(SGOT) 17 U/L 11/23/2017 Comp Metabolic Qpm038 ALT(SGPT) 16 U/L 11/23/2017 Comp Metabolic Wzy037 BILI T 0.7 mg/dL 11/23/2017 Comp Metabolic Qlu101 ALBUMIN 3.8 g/dL 11/23/2017 Comp Metabolic Mjy324 TPRO 6.2 g/dL 11/23/2017 Comp Metabolic Wnx401 GLOB 2.4 g/dL 11/23/2017 Comp Metabolic Nya770 A/G Ratio 1.6 Ratio 11/23/2017 Comp Metabolic Wqp690 Osmo 289 mOsmo 11/23/2017 Free T4 Dnx309 FREE T4 1.04 ng/dL 11/23/2017 %Hba1C Iod995 % HbA1c 89329- 6 6.4 % 11/23/2017 %Hba1C Xdh123 Gluc Ave 137 mg/dL 11/23/2017 Lipid Ord30 CHOL 179 mg/dL 11/23/2017 Lipid Ord30 HDL 51.0 mg/dl 11/23/2017 Lipid Ord30 TRIG 134 mg/dL 11/23/2017 Lipid Ord30 LDL 101 mg/dL 11/23/2017 Lipid Ord30 C/HDL 3.5 Ratio 11/23/2017 Tsh Ord6 TSH (3rd IS) 1.00 uIU/mL 11/23/2017 Microalbumin Fzy001 MicroAlb <0.7 mg/dL 11/23/2017 Comp Metabolic Kla095 NA 141 mEq/L 01/23/2017 Comp Metabolic Vww851 K 4.5 mEq/L 01/23/2017 Comp Metabolic Kbo080 CL 107 mEq/L 01/23/2017 Comp Metabolic Tze460 CO2 21.0 mEq/L 01/23/2017 Comp Metabolic Hnu563 ANION GAP 18 01/23/2017 Comp Metabolic Mpk138 GLUCOSE 138 mg/dL 01/23/2017 Comp Metabolic Xaj418 Creat 1.0 mg/dL 01/23/2017 Comp Metabolic Ayq379 eGFR 56 ml/min/1.73m2 01/23/2017 Comp Metabolic Hzr934 BUN 26 mg/dL 01/23/2017 Comp Metabolic Pos562 B/C Ratio 25.7 Ratio 01/23/2017 Comp Metabolic Imq542 CALCIUM 9.0 mg/dL 01/23/2017 Comp Metabolic Gkd963 ALK PHOS 37 U/L 01/23/2017 Comp Metabolic Lzx234 AST(SGOT) 20 U/L 01/23/2017 Comp Metabolic Kxm210 ALT(SGPT) 25 U/L 01/23/2017 Comp Metabolic Tot883 BILI T 0.9 mg/dL 01/23/2017 Comp Metabolic Ztx925 ALBUMIN 3.8 g/dL 01/23/2017 Comp Metabolic Lxo656 TPRO 6.5 g/dL 01/23/2017 Comp Metabolic Ywu424 GLOB 2.7 g/dL 01/23/2017 Comp Metabolic Mwb434 A/G Ratio 1.4 Ratio 01/23/2017 Comp Metabolic Xbr959 Osmo 288 mOsmo 01/23/2017 Free T4 Sue832 FREE T4 1.05 ng/dL 01/23/2017 %Hba1C Wud795 % HbA1c 30278- 6 6.1 % 01/23/2017 %Hba1C Mat551 Gluc Ave 128 mg/dL 01/23/2017 Tsh Ord6 hTSH II 1.68 uIU/mL 01/23/2017 Culture Urine [id number] URINE CULTURE SEE NOTES 11/10/2016 Culture Urine [id number] Continued Results 11/10/2016 Urine Culture Ucult Complete [...] Ord15 CALCIUM 9.3 mg/dL 09/29/2016 Free T4 Cap649 FREE T4 0.99 ng/dL 09/07/2016 Cbc With [...] 30.0 pg 09/07/2016 Cbc With Differential Ord2 [place]% 9.8 % 09/07/2016 Cbc With Differential Ord2 [...] 1.75 K/ul 09/07/2016 Cbc With Differential Ord2 [place] ABS# 0.6 K/ul 09/07/2016 Cbc With Differential Ord2 Eos ABS# 0.1 K/ul 09/07/2016 Cbc With Differential Ord2 Baso ABS# 0.0 K/ul 09/07/2016 Tsh Ord6 hTSH II 1.41 uIU/mL 09/07/2016 Culture Urine [id number] URINE CULTURE SEE NOTES 06/27/2016 Lipid Ord30 CHOL 196 mg/dL 06/22/2016 Lipid Ord30 HDL 63.0 mg/dl 06/22/2016 Lipid Ord30 TRIG 154 mg/dL 06/22/2016 Lipid Ord30 LDL 102 mg/dL 06/22/2016 Lipid Ord30 C/HDL 3.1 Ratio 06/22/2016 Hepatic Uho704 ALBUMIN 4.2 g/dL 06/22/2016 Hepatic Rbp716 TPRO 7.0 g/dL 06/22/2016 Hepatic Dai513 GLOB 2.8 g/dL 06/22/2016 Hepatic Ydf257 A/G Ratio 1.5 Ratio 06/22/2016 Hepatic Ojf875 ALK PHOS 54 U/L 06/22/2016 Hepatic Ays866 ALT(SGPT) 30 U/L 06/22/2016 Hepatic Vte795 AST(SGOT) 24 U/L 06/22/2016 Hepatic Cim068 BILI T 1.1 mg/dL 06/22/2016 Hepatic Osy888 BILI D 0.2 mg/dL 06/22/2016 Hepatic Lbi041 BILI I 0.9 mg/dL 06/22/2016 Comp Metabolic Dxi610 NA 139 mEq/L 06/14/2016 Comp Metabolic Gnd588 K 4.6 mEq/L 06/14/2016 Comp Metabolic Qsa569 CL 108 mEq/L 06/14/2016 Comp Metabolic Kfr950 CO2 22.0 mEq/L 06/14/2016 Comp Metabolic Ogr067 ANION GAP 14 06/14/2016 Comp Metabolic Gmj282 GLUCOSE 114 mg/dL 06/14/2016 Comp Metabolic Gna343 Creat 1.2 mg/dL 06/14/2016 Comp Metabolic Oaz146 eGFR 48 ml/min/1.73m2 06/14/2016 Comp Metabolic Uxn952 BUN 24 mg/dL 06/14/2016 Comp Metabolic Mdj668 B/C Ratio 20.9 Ratio 06/14/2016 Comp Metabolic Ysr101 CALCIUM 9.9 mg/dL 06/14/2016 Comp Metabolic Abm072 ALK PHOS 47 U/L 06/14/2016 Comp Metabolic Ehs757 AST(SGOT) 28 U/L 06/14/2016 Comp Metabolic Gms273 ALT(SGPT) 32 U/L 06/14/2016 Comp Metabolic Swu244 BILI T 0.9 mg/dL 06/14/2016 Comp Metabolic Sno249 ALBUMIN 4.1 g/dL 06/14/2016 Comp Metabolic Qxi081 TPRO 6.9 g/dL 06/14/2016 Comp Metabolic Dtm220 GLOB 2.8 g/dL 06/14/2016 Comp Metabolic Lqq721 A/G Ratio 1.5 Ratio 06/14/2016 Comp Metabolic Zrl146 Osmo 282 mOsmo 06/14/2016 Tsh Ord6 hTSH II 1.26 uIU/mL 06/14/2016 Free T4 Jzv907 FREE T4 1.09 ng/dL 06/14/2016 Tsh Ord6 hTSH II 0.28 uIU/mL 02/02/2016 Digoxin Ord9 DIGOXIN 0.7 NG/ML 02/02/2016 Free T4 Ubv426 FREE T4 1.23 ng/dL 02/02/2016 Hepatic Cxw344 ALBUMIN 4.0 g/dL 02/02/2016 Hepatic Ihy304 TPRO 7.0 g/dL 02/02/2016 Hepatic Imk169 GLOB 3.0 g/dL 02/02/2016 Hepatic Ysj561 A/G Ratio 1.3 Ratio 02/02/2016 Hepatic Oyg828 ALK PHOS 57 U/L 02/02/2016 Hepatic Klv835 ALT(SGPT) 62 U/L 02/02/2016 Hepatic Kjj313 AST(SGOT) 54 U/L 02/02/2016 Hepatic Mxt582 BILI T 0.8 mg/dL 02/02/2016 Hepatic Xex559 BILI D 0.2 mg/dL 02/02/2016 Hepatic Jag177 BILI I 0.6 mg/dL 02/02/2016 Urine Culture Ucult Preliminary No Growth Day 1 11/25/2015 Urine Culture Ucult Complete No Growth Day 2 11/25/2015 Hepatic Dqf324 ALBUMIN 3.9 g/dL 11/11/2015 Hepatic Dxg557 TPRO 7.0 g/dL 11/11/2015 Hepatic Hfk780 GLOB 3.1 g/dL 11/11/2015 Hepatic Yeo335 A/G Ratio 1.3 Ratio 11/11/2015 Hepatic Qft481 ALK PHOS 63 U/L 11/11/2015 Hepatic Wqf368 ALT(SGPT) 107 U/L 11/11/2015 Hepatic Jak510 AST(SGOT) 101 U/L 11/11/2015 Hepatic Uwj567 BILI T 0.6 mg/dL 11/11/2015 Hepatic Ufs313 BILI D 0.1 mg/dL 11/11/2015 Hepatic Kgn854 BILI I 0.5 mg/dL 11/11/2015 Comp Metabolic Jpt563 NA 138 mEq/L 10/29/2015 Comp Metabolic Ygt706 K 5.0 mEq/L 10/29/2015 Comp Metabolic Vrt101 CL 105 mEq/L 10/29/2015 Comp Metabolic Tgk447 CO2 23.0 mEq/L 10/29/2015 Comp Metabolic Pbd292 ANION GAP 15 10/29/2015 Comp Metabolic Tuf228 GLUCOSE 105 mg/dL 10/29/2015 Comp Metabolic Tfi835 Creat 1.0 mg/dL 10/29/2015 Comp Metabolic Kur522 eGFR 55 ml/min/1.73m2 10/29/2015 Comp Metabolic Yeh285 BUN 20 mg/dL 10/29/2015 Comp Metabolic Tpr724 B/C Ratio 19.4 Ratio 10/29/2015 Comp Metabolic Sft639 CALCIUM 8.8 mg/dL 10/29/2015 Comp Metabolic Fcv637 ALK PHOS 56 U/L 10/29/2015 Comp Metabolic Iqb697 AST(SGOT) 66 U/L 10/29/2015 Comp Metabolic Sqb945 ALT(SGPT) 78 U/L 10/29/2015 Comp Metabolic Aoi808 BILI T 0.7 mg/dL 10/29/2015 Comp Metabolic Yic824 ALBUMIN 3.6 g/dL 10/29/2015 Comp Metabolic Psy370 TPRO 6.6 g/dL 10/29/2015 Comp Metabolic Rlb966 GLOB 3.0 g/dL 10/29/2015 Comp Metabolic Aum771 A/G Ratio 1.2 Ratio 10/29/2015 Comp Metabolic Hqm433 Osmo 279 mOsmo 10/29/2015 Comp Metabolic Pcp506 NA 136 mEq/L 09/03/2015 Comp Metabolic Xew791 K 4.4 mEq/L 09/03/2015 Comp Metabolic Igg772 CL 103 mEq/L 09/03/2015 Comp Metabolic Dxe632 CO2 24.0 mEq/L 09/03/2015 Comp Metabolic Het011 ANION GAP 13 09/03/2015 Comp Metabolic Isz520 GLUCOSE 87 mg/dL 09/03/2015 Comp Metabolic Msb601 Creat 1.1 mg/dL 09/03/2015 Comp Metabolic Gds281 eGFR 53 ml/min/1.73m2 09/03/2015 Comp Metabolic Otz904 BUN 17 mg/dL 09/03/2015 Comp Metabolic Ejn177 B/C Ratio 16.2 Ratio 09/03/2015 Comp Metabolic Vpu121 CALCIUM 9.0 mg/dL 09/03/2015 Comp Metabolic Sfn554 ALK PHOS 55 U/L 09/03/2015 Comp Metabolic Iun179 AST(SGOT) 83 U/L 09/03/2015 Comp Metabolic Bda879 ALT(SGPT) 126 U/L 09/03/2015 Comp Metabolic Pkt665 BILI T 0.9 mg/dL 09/03/2015 Comp Metabolic Qyk483 ALBUMIN 3.9 g/dL 09/03/2015 Comp Metabolic Lus919 TPRO 6.8 g/dL 09/03/2015 Comp Metabolic Ceb245 GLOB 2.9 g/dL 09/03/2015 Comp Metabolic Rwc459 A/G Ratio 1.4 Ratio 09/03/2015 Comp Metabolic Piq461 Osmo 273 mOsmo 09/03/2015 Total T3 Ord42 TT3 0.6 ng/ml 07/09/2015 Tsh Ord6 hTSH II 1.62 uIU/mL 07/09/2015 Total T3 Ord42 TT3 0.5 ng/ml 04/02/2015 Free T4 Knu973 FREE T4 1.23 ng/dL 04/02/2015 Tsh Ord6 [...] Procedure Codes Date THER/PROPH/DIAG INJ SC/IM CPT-4: 12951 08/29/2018 THER/PROPH/DIAG INJ SC/IM CPT-4: 59539 08/15/2018 TRIAMCINOLONE ACET INJ NOS CPT-4: J3301 08/15/2018 THER/PROPH/DIAG INJ SC/IM CPT-4: 84765 08/01/2018 VITAMIN B12 INJECTION CPT- 4: J3420 08/01/2018 THER/PROPH/DIAG INJ SC/IM CPT-4: 04964 07/19/2018 THER/PROPH/DIAG INJ SC/IM CPT-4: 80480 07/04/2018 THER/PROPH/DIAG INJ SC/IM CPT-4: 73732 06/20/2018 THER/PROPH/DIAG INJ SC/IM CPT-4: 89567 06/06/2018 VITAMIN B12 INJECTION CPT- 4: J3420 06/06/2018 THER/PROPH/DIAG INJ SC/IM CPT-4: 71881 05/24/2018 THER/PROPH/DIAG INJ SC/IM CPT-4: 28055 05/09/2018 THER/PROPH/DIAG INJ SC/IM CPT-4: 74810 04/26/2018 VITAMIN B12 INJECTION CPT- 4: J3420 04/26/2018 THER/PROPH/DIAG INJ SC/IM CPT-4: 75488 04/12/2018 THER/PROPH/DIAG INJ SC/IM CPT-4: 90975 03/30/2018 THER/PROPH/DIAG INJ SC/IM CPT-4: 47094 03/16/2018 VITAMIN B12 INJECTION CPT- 4: J3420 03/16/2018 ADMIN INFLUENZA VIRUS VAC CPT-4: G0008 03/16/2018 FLU VACC PRSV FREE INC ANTIG Formatting Model/CDA Sections, Assigned to/Rusty Nga CPT-4: [id number] 03/16/2018 THER/PROPH/DIAG INJ SC/IM CPT-4: 66801 03/02/2018 THER/PROPH/DIAG INJ SC/IM CPT-4: 69878 02/08/2018 THER/PROPH/DIAG INJ SC/IM CPT-4: 19586 01/24/2018 THER/PROPH/DIAG INJ SC/IM CPT-4: 71446 01/10/2018 THER/PROPH/DIAG INJ SC/IM CPT-4: 02685 12/27/2017 VITAMIN B12 INJECTION CPT- 4: J3420 12/27/2017 THER/PROPH/DIAG INJ SC/IM CPT-4: 51432 12/12/2017 THER/PROPH/DIAG INJ SC/IM CPT-4: 06776 12/01/2017 VITAMIN B12 INJECTION CPT- 4: J3420 12/01/2017 THER/PROPH/DIAG INJ SC/IM CPT-4: 05185 11/17/2017 THER/PROPH/DIAG INJ SC/IM CPT-4: 59221 11/02/2017 THER/PROPH/DIAG INJ SC/IM CPT-4: 86034 10/20/2017 THER/PROPH/DIAG INJ SC/IM CPT-4: 08367 10/06/2017 THER/PROPH/DIAG INJ SC/IM CPT-4: 47268 09/21/2017 TRIAMCINOLONE ACET INJ NOS CPT-4: J3301 09/15/2017 THER/PROPH/DIAG INJ SC/IM CPT-4: 27856 09/07/2017 THER/PROPH/DIAG INJ SC/IM CPT-4: 58879 08/24/2017 THER/PROPH/DIAG INJ SC/IM CPT-4: 81356 07/06/2017 THER/PROPH/DIAG INJ SC/IM CPT-4: 23397 06/20/2017 TRIAMCINOLONE ACET INJ NOS CPT-4: J3301 06/20/2017 PPPS, SUBSEQ VISIT CPT- 4: G0439 06/05/2017 THER/PROPH/DIAG INJ SC/IM CPT-4: 99835 06/05/2017 THER/PROPH/DIAG INJ SC/IM CPT-4: 97260 05/25/2017 VITAMIN B12 INJECTION CPT- 4: J3420 05/25/2017 THER/PROPH/DIAG INJ SC/IM CPT-4: 57695 05/16/2017 THER/PROPH/DIAG INJ SC/IM CPT-4: 97110 05/01/2017 THER/PROPH/DIAG INJ SC/IM CPT-4: 09630 04/18/2017 THER/PROPH/DIAG INJ SC/IM CPT-4: 83725 04/06/2017 ADMIN INFLUENZA VIRUS VAC CPT-4: G0008 03/22/2017 FLU VACC PRSV FREE INC ANTIG CPT-4: 33169 03/22/2017 THER/PROPH/DIAG INJ SC/IM CPT-4: 55467 03/09/2017 THER/PROPH/DIAG INJ SC/IM CPT-4: 11360 02/23/2017 THER/PROPH/DIAG INJ SC/IM CPT-4: 25263 02/09/2017 THER/PROPH/DIAG INJ SC/IM CPT-4: 95152 01/23/2017 THER/PROPH/DIAG INJ SC/IM CPT-4: 09778 01/10/2017 THER/PROPH/DIAG INJ SC/IM CPT-4: 47598 12/28/2016 THER/PROPH/DIAG INJ SC/IM CPT-4: 82881 12/14/2016 THER/PROPH/DIAG INJ SC/IM CPT-4: 42429 11/24/2016 URINALYSIS NONAUTO W/O SCOPE CPT-4: 03236 11/07/2016 THER/PROPH/DIAG INJ SC/IM CPT-4: 36828 11/07/2016 THER/PROPH/DIAG INJ SC/IM CPT-4: 09602 10/24/2016 THER/PROPH/DIAG INJ SC/IM CPT-4: 09634 09/29/2016 THER/PROPH/DIAG INJ SC/IM CPT-4: 52671 08/29/2016 THER/PROPH/DIAG INJ SC/IM CPT-4: 53836 08/04/2016 THER/PROPH/DIAG INJ SC/IM CPT-4: 41096 07/21/2016 THER/PROPH/DIAG INJ SC/IM CPT-4: 59978 07/05/2016 THER/PROPH/DIAG INJ SC/IM CPT-4: 11221 06/22/2016 URINALYSIS NONAUTO W/O SCOPE CPT-4: 67510 06/22/2016 THER/PROPH/DIAG INJ SC/IM CPT-4: 06012 06/09/2016 PPPS, SUBSEQ VISIT CPT- 4: G0439 05/30/2016 ADMIN PNEUMOCOCCAL VACCINE SNOMED CT: 98660925 CPT-4: G0009 05/25/2016 Pneumococcal Polysaccharide Vaccine, 23-Valent, Ad CPT-4: 10258 05/25/2016 THER/PROPH/DIAG INJ SC/IM CPT-4: 55951 05/25/2016 THER/PROPH/DIAG INJ SC/IM CPT-4: 45068 05/10/2016 TRIAMCINOLONE ACET INJ NOS CPT-4: J3301 04/26/2016 VITAMIN B12 INJECTION CPT- 4: J3420 04/26/2016 THER/PROPH/DIAG INJ SC/IM CPT-4: 55428 04/11/2016 THER/PROPH/DIAG INJ SC/IM CPT-4: 04297 03/31/2016 ADMIN INFLUENZA VIRUS VAC CPT-4: G0008 03/15/2016 FLU VACC 4 STEPHANIE [address] YRS PLUS IM SNOMED CT: 81532204 CPT-4: 63482 03/15/2016 THER/PROPH/DIAG INJ SC/IM CPT-4: 74444 02/25/2016 THER/PROPH/DIAG INJ SC/IM CPT-4: 28273 02/02/2016 THER/PROPH/DIAG INJ SC/IM CPT-4: 01994 01/18/2016 VITAMIN B12 INJECTION CPT- 4: J3420 12/29/2015 THER/PROPH/DIAG INJ SC/IM CPT-4: 47276 12/29/2015 THER/PROPH/DIAG INJ SC/IM CPT-4: 96373 12/08/2015 THER/PROPH/DIAG INJ SC/IM CPT-4: 50967 11/23/2015 URINALYSIS NONAUTO W/O SCOPE CPT-4: 78379 11/23/2015 THER/PROPH/DIAG INJ SC/IM CPT-4: 23242 11/11/2015 THER/PROPH/DIAG INJ SC/IM CPT-4: 19239 10/29/2015 THER/PROPH/DIAG INJ SC/IM CPT-4: 65937 10/12/2015 VITAMIN B12 INJECTION CPT- 4: J3420 10/12/2015 THER/PROPH/DIAG INJ SC/IM CPT-4: 99794 09/29/2015 THER/PROPH/DIAG INJ SC/IM CPT-4: 06199 09/17/2015 THER/PROPH/DIAG INJ SC/IM CPT-4: 83625 09/03/2015 THER/PROPH/DIAG INJ SC/IM CPT-4: 77904 08/17/2015 THER/PROPH/DIAG INJ SC/IM CPT-4: 52607 08/06/2015 THER/PROPH/DIAG INJ SC/IM CPT-4: 21257 07/22/2015 THER/PROPH/DIAG INJ SC/IM CPT-4: 26014 07/08/2015 THER/PROPH/DIAG INJ SC/IM CPT-4: 99003 06/23/2015 THER/PROPH/DIAG INJ SC/IM CPT-4: 65519 06/08/2015 THER/PROPH/DIAG INJ SC/IM CPT-4: 30993 05/27/2015 DESTRUCT PREMALG LESION CPT-4: 79936 05/19/2015 DESTRUCT PREMALG LES 2-14 CPT-4: 24911 05/19/2015 THER/PROPH/DIAG INJ SC/IM CPT-4: 91042 05/12/2015 VITAMIN B12 INJECTION CPT- 4: J3420 05/12/2015 THER/PROPH/DIAG INJ SC/IM CPT-4: 20213 04/30/2015 VITAMIN B12 INJECTION CPT- 4: J3420 04/30/2015 THER/PROPH/DIAG INJ SC/IM CPT-4: 79602 04/16/2015 THER/PROPH/DIAG INJ SC/IM CPT-4: 70010 04/02/2015 VITAMIN B12 INJECTION CPT- 4: J3420 04/02/2015 THER/PROPH/DIAG INJ SC/IM CPT-4: 15202 03/18/2015 THER/PROPH/DIAG INJ SC/IM CPT-4: 09478 03/03/2015 THER/PROPH/DIAG INJ SC/IM CPT-4: 83500 02/18/2015 THER/PROPH/DIAG INJ SC/IM CPT-4: 36387 02/04/2015 VITAMIN B12 INJECTION CPT- 4: J3420 02/04/2015 THER/PROPH/DIAG INJ SC/IM CPT-4: 28038 01/22/2015 THER/PROPH/DIAG INJ SC/IM CPT-4: 92520 01/08/2015 VITAMIN B12 INJECTION CPT- 4: J3420 01/08/2015 THER/PROPH/DIAG INJ SC/IM CPT-4: 74991 12/25/2014 VITAMIN B12 INJECTION CPT- 4: J3420 12/25/2014 THER/PROPH/DIAG INJ SC/IM CPT-4: 66292 12/10/2014 VITAMIN B12 INJECTION CPT- 4: J3420 12/10/2014 THER/PROPH/DIAG INJ SC/IM CPT-4: 13495 11/26/2014 VITAMIN B12 INJECTION CPT- 4: J3420 11/26/2014 THER/PROPH/DIAG INJ SC/IM CPT-4: 32228 11/12/2014 VITAMIN B12 INJECTION CPT- 4: J3420 11/12/2014 THER/PROPH/DIAG INJ SC/IM CPT-4: 67172 10/28/2014 Vital Signs Date Vital 09/05/2018 Blood Pressure 1: 122/70 Code: 8480-6 BMI: 27.1 Code: 04989-1 Heart Rate 1: 90 bpm Height: 5'6" SpO2: 97% Weight: 168 lbs 08/15/2018 Blood Pressure 1: 142/76 Code: 8480-6 BMI: 27.4 Code: 28939-8 Heart Rate 1: 74 bpm Height: 5'6" SpO2: 95% Temperature: 36.7 (C) / 98.1 (F) Weight: 170 lbs 05/03/2018 Blood Pressure 1: 140/70 Code: 8480-6 BMI: 26.0 Code: 80680-7 Heart Rate 1: 70 bpm Height: 5'6" SpO2: 94% Weight: 161 lbs 04/26/2018 Height: 5'6" 02/26/2018 Blood Pressure 1: 130/72 Code: 8480-6 BMI: 27.9 Code: 37003-3 Heart Rate 1: 72 bpm Height: 5'6" SpO2: 93% Weight: 173 lbs 12/12/2017 Blood Pressure 1: 126/74 Code: 8480-6 BMI: 27.4 Code: 06635-1 Heart Rate 1: 83 bpm Height: 5'6" SpO2: 98% Weight: 170 lbs 12/04/2017 Blood Pressure 1: 104/68 Code: 8480-6 BMI: 28.2 Code: 62680-2 Heart Rate 1: 85 bpm Height: 5'6" SpO2: 95% Weight: 175 lbs 11/20/2017 Blood Pressure 1: 130/68 Code: 8480-6 BMI: 28.4 Code: 45740-7 Heart Rate 1: 80 bpm Height: 5'6" SpO2: 99% Weight: 176 lbs 11/02/2017 Height: 5'6" 09/15/2017 Blood Pressure 1: 134/74 Code: 8480-6 BMI: 28.4 Code: 35169-1 Heart Rate 1: 88 bpm Height: 5'6" SpO2: 98% Weight: 176 lbs 09/07/2017 Blood Pressure 1: 124/64 Code: 8480-6 Heart Rate 1: 90 bpm Height: SpO2: 97% Weight: 08/30/2017 Blood Pressure 1: 140/76 Code: 8480-6 BMI: 28.4 Code: 88418-9 Heart Rate 1: 90 bpm Height: 5'6" SpO2: 94% Weight: 176 lbs 07/06/2017 Blood Pressure 1: 132/66 Code: 8480-6 BMI: 29.4 Code: 47590-5 Heart Rate 1: 85 bpm Height: 5'6" SpO2: 97% Weight: 182 lbs 06/20/2017 Blood Pressure 1: 134/86 Code: 8480-6 Heart Rate 1: 90 bpm Height: SpO2: 98% Weight: 06/05/2017 BMI: 29.1 Code: 72526-3 Height: 5'6" Weight: 180 lbs 05/25/2017 Blood Pressure 1: 126/76 Code: 8480-6 BMI: 29.1 Code: 68867-0 Heart Rate 1: 77 bpm Height: 5'6" SpO2: 97% Weight: 180 lbs 03/23/2017 Blood Pressure 1: 142/84 Code: 8480-6 BMI: 29.1 Code: 74532-0 Heart Rate 1: 91 bpm Height: 5'6" SpO2: 97% Weight: 180 lbs 01/23/2017 Blood Pressure 1: 150/90 Code: 8480-6 BMI: 29.9 Code: 57514-4 Heart Rate 1: 81 bpm Height: 5'6" SpO2: 97% Weight: 185 lbs 11/02/2016 Blood Pressure 1: 148/78 Code: 8480-6 BMI: 29.7 Code: 59657-7 Heart Rate 1: 87 bpm Height: 5'6" SpO2: 97% Weight: 184 lbs 09/29/2016 Blood Pressure 1: 128/78 Code: 8480-6 BMI: 29.7 Code: 21312-8 Heart Rate 1: 78 bpm Height: 5'6" SpO2: 98% Weight: 184 lbs 07/26/2016 Blood Pressure 1: 138/72 Code: 8480-6 BMI: 30.0 Code: 74079-3 Heart Rate 1: 85 bpm Height: 5'6" SpO2: 97% Weight: 186 lbs 05/30/2016 Blood Pressure 1: 132/76 Code: 8480-6 BMI: 30.0 Code: 55359-5 Heart Rate 1: 80 bpm Height: 5'6" SpO2: 98% Waist Measure (cm): 99 cm Weight: 186 lbs 05/25/2016 Blood Pressure 1: 132/76 Code: 8480-6 BMI: 30.0 Code: 32766-6 Heart Rate 1: 80 bpm Height: 5'6" SpO2: 96% Weight: 186 lbs 02/25/2016 Blood Pressure 1: 110/64 Code: 8480-6 Heart Rate 1: 82 bpm Height: SpO2: 96% Weight: 01/25/2016 Blood Pressure 1: 118/70 Code: 8480-6 BMI: 30.0 Code: 99822-1 Heart Rate 1: 78 bpm Height: 5'6" SpO2: 97% Weight: 186 lbs 11/11/2015 Blood Pressure 1: 128/82 Code: 8480-6 BMI: 29.2 Code: 46732-6 Heart Rate 1: 86 bpm Height: 5'6" SpO2: 96% Temperature: 36.4 (C) / 97.6 (F) Weight: 181 lbs 10/12/2015 Blood Pressure 1: 118/70 Code: 8480-6 BMI: 29.2 Code: 79864-7 Heart Rate 1: 81 bpm Height: 5'6" SpO2: 95% Weight: 181 lbs 09/03/2015 Blood Pressure 1: 138/78 Code: 8480-6 BMI: 29.9 Code: 98915-7 Heart Rate 1: 88 bpm Height: 5'6" SpO2: 97% Weight: 185 lbs 05/19/2015 Blood Pressure 1: 146/78 Code: 8480-6 BMI: 30.0 Code: 30771-7 Heart Rate 1: 66 bpm Height: 5'6" SpO2: 97% Weight: 186 lbs 05/12/2015 Blood Pressure 1: 120/70 Code: 8480-6 BMI: 29.9 Code: 38249-2 Heart Rate 1: 89 bpm Height: 5'6" SpO2: 95% Weight: 185 lbs 01/13/2015 Blood Pressure 1: 140/90 Code: 8480-6 BMI: 30.3 Code: 41460-3 Heart Rate 1: 84 bpm Height: 5'6" SpO2: 95% Weight: 188 lbs 12/16/2014 Blood Pressure 1: 140/82 Code: 8480-6 BMI: 29.5 Code: 17168-1 Heart Rate 1: 86 bpm Height: 5'6" [...] data Encounters Encounter Performer Location Codes Date ( EST. 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 PATIENT, LEVEL IV Diagnosis: Acute bronchitis due to other specified organisms[ICD10: J20.8] Diagnosis: Cough[ICD10: R05] Diagnosis: 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 factor deficiency[ICD10: D51.0] Brianna Vega MD, [facility] CPT-4: 84335 08/15/2018 ([id number]) [id number] EST. PATIENT, LEVEL IV Diagnosis: Essential (primary) hypertension[ICD10: I10] Diagnosis: Type 2 diabetes mellitus without complications[ICD10: E11.9] Yarely Vega MD, [facility] CPT-4: 85843 05/03/2018 [id number]) 16043 EST. PATIENT, LEVEL III Diagnosis: Pain in left shoulder[ICD10: M25.512] Diagnosis: Pain in right shoulder[ICD10: M25.511] Yarely Vega MD, [facility] CPT-4: 12314 02/26/2018 [id number] EST. PATIENT, LEVEL III Diagnosis: Nausea[ICD10: R11.0] Diagnosis: Cough[ICD10: R05] Diagnosis: 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 factor deficiency[ICD10: D51.0] Janet Vega MD, [facility] CPT-4: 18069 12/12/2017 [id number]) [id number] EST. PATIENT, LEVEL IV Diagnosis: Acute bronchitis due to Hemophilus influenzae[ICD10: J20.1] Diagnosis: Cough[ICD10: R05] Yarely Vega MD, [facility] CPT-4: 85618 12/04/2017 ([id number]) [id number] EST. PATIENT, LEVEL IV Diagnosis: Essential (primary) hypertension[ICD10: I10] Diagnosis: Cough[ICD10: R05] Diagnosis: Chronic atrial fibrillation[ICD10: I48.2] Yarely Vega MD, [facility] CPT-4: 92403 11/20/2017 ([id number]) 22556 EST. PATIENT, LEVEL III Diagnosis: Cough[ICD10: R05] Diagnosis: Acute upper respiratory infection, unspecified[ICD10: J06.9] Janet Vega MD, [facility] CPT-4: 45899 09/15/2017 17179 EST. PATIENT, LEVEL III Diagnosis: Laceration without foreign body of right forearm, initial encounter[ICD10: S51.811A] Diagnosis: Other vitamin B12 deficiency anemias[ICD10: D51.8] Brianna Vega MD, [facility] CPT-4: 05525 09/07/2017 ([id number]) 25405 EST. PATIENT, LEVEL IV Diagnosis: Chronic atrial fibrillation[ICD10: I48.2] Diagnosis: Other allergic rhinitis[ICD10: J30.89] Diagnosis: Encounter for therapeutic drug level monitoring[ICD10: Z51.81] Yarely Vega MD, [facility] CPT-4: 26194 08/30/2017 ([id number]) [id number] EST. PATIENT, LEVEL IV Diagnosis: Atrophy of thyroid (acquired)[ICD10: E03.4] Diagnosis: Cough[ICD10: R05] Diagnosis: Laceration without foreign body of left forearm, initial encounter[ICD10: S51.812A] Diagnosis: Candidiasis of skin and nail[ICD10: B37.2] Diagnosis: Other vitamin B12 deficiency anemias[ICD10: D51.8] Diagnosis: Slow transit constipation[ICD10: K59.01] Yarely Vega MD, [facility] CPT-4: 79502 07/06/2017 [id number] EST. PATIENT, LEVEL III Diagnosis: Other vitamin B12 deficiency anemias[ICD10: D51.8] Diagnosis: Acute laryngopharyngitis[ICD10: J06.0] Diagnosis: Other allergic rhinitis[ICD10: J30.89] Brianna Vgea MD, [facility] CPT- 4: 57477 06/20/2017 ([id number]) 81077 EST. 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 PATIENT, LEVEL IV Diagnosis: Type 2 diabetes mellitus without complications[ICD10: E11.9] Diagnosis: Atrophy of thyroid (acquired)[ICD10: E03.4] Diagnosis: Chest pain on breathing[ICD10: R07.1] Diagnosis: Chondrocostal junction syndrome [Tietze][ICD10: M94.0] Diagnosis: Other fatigue[ICD10: R53.83] Yarely Vega MD, [facility] CPT-4: 02822 03/23/2017 [id number]) 84943 EST. PATIENT, LEVEL IV Diagnosis: Type 2 diabetes mellitus without complications[ICD10: E11.9] Diagnosis: Essential (primary) hypertension[ICD10: I10] Diagnosis: Headache[ICD10: R51] Diagnosis: Atrophy of thyroid (acquired)[ICD10: E03.4] Diagnosis: Vitamin B12 deficiency anemia, unspecified[ICD10: D51.9] Yarely Vega MD, [facility] CPT-4: 65305 01/23/2017 45046 EST. PATIENT, LEVEL III Diagnosis: Low back pain[ICD10: M54.5] Diagnosis: Pain in thoracic spine[ICD10: M54.6] Brianna Vega MD, [facility] CPT- 4: 26263 11/02/2016 [id number]) 30520 EST. PATIENT, LEVEL IV Diagnosis: Essential (primary) hypertension[ICD10: I10] Diagnosis: Other vitamin B12 deficiency anemias[ICD10: D51.8] Diagnosis: Generalized abdominal pain[ICD10: R10.84] Yarely Vega MD, [facility] CPT-4: 27311 09/29/2016 [id number]) 17678 EST. PATIENT, LEVEL IV Diagnosis: Essential (primary) hypertension[ICD10: I10] Yarely Vega MD, [facility] CPT-4: 91947 07/26/2016 ([id number]) 20641 EST. PATIENT, LEVEL IV Diagnosis: Benign lipomatous neoplasm of skin and subcutaneous tissue of right leg[ICD10: D17.23] Diagnosis: Pain in right ankle and joints of right foot[ICD10: M25.571] Diagnosis: Encounter for immunization[ICD10: Z23] Diagnosis: Vitamin B12 deficiency anemia, unspecified[ICD10: D51.9] Yarely Vega MD, [facility] CPT-4: 41723 05/25/2016 57605 EST. PATIENT, LEVEL III Diagnosis: Other chest pain[ICD10: R07.89] Diagnosis: Other vitamin B12 deficiency anemias[ICD10: D51.8] Brianna Vega MD, [facility] CPT-4: 03902 02/25/2016 ([id number]) 13788 EST. PATIENT, LEVEL IV Diagnosis: Essential (primary) hypertension[ICD10: I10] Diagnosis: Hypothyroidism, unspecified[ICD10: E03.9] Diagnosis: Other hypersomnia[ICD10: G47.19] Diagnosis: Idiopathic sleep related nonobstructive alveolar hypoventilation[ICD10: G47.34] Yarely Vega MD, [facility] CPT-4: 45240 01/25/2016 15829 EST. PATIENT, LEVEL III Diagnosis: Other vitamin B12 deficiency anemias[ICD10: D51.8] Diagnosis: Acute nasopharyngitis [common cold][ICD10: J00] Diagnosis: Other allergic rhinitis[ICD10: J30.89] Brianna Vega MD, [facility] CPT- 4: 46078 11/11/2015 ([id number]) 56239 EST. PATIENT, LEVEL IV Diagnosis: Essential tremor[ICD10: G25.0] Diagnosis: Chronic fatigue, unspecified[ICD10: R53.82] Diagnosis: Other hypersomnia[ICD10: G47.19] Diagnosis: Essential (primary) hypertension[ICD10: I10] Yarely Vega MD, [facility] CPT-4: 30409 10/12/2015 ([id number]) 87780 EST. PATIENT, LEVEL IV Diagnosis: Essential (primary) hypertension[ICD10: I10] Diagnosis: Chronic atrial fibrillation[ICD10: I48.2] Diagnosis: Abnormal levels of other serum enzymes[ICD10: R74.8] Diagnosis: Type 2 diabetes mellitus without complications[ICD10: E11.9] Diagnosis: Vitamin B12 deficiency anemia, unspecified[ICD10: D51.9] [facility] CPT-4: 09198 09/03/2015 [id number] 74462 EST. PATIENT, LEVEL III Diagnosis: Nausea[ICD10: R11.0] Diagnosis: Essential tremor[ICD10: G25.0] Diagnosis: Actinic keratosis[ICD10: L57.0] [facility] CPT-4: 36128 05/19/2015 ([id number]) 99536 EST. PATIENT, LEVEL IV Diagnosis: Vitamin B12 deficiency anemia, unspecified[ICD10: D51.9] Diagnosis: Chronic atrial fibrillation[ICD10: I48.2] Diagnosis: Headache[ICD10: R51] Diagnosis: Chronic fatigue, unspecified[ICD10: R53.82] Diagnosis: Cervicalgia[ICD10: M54.2] Yarely Vega MD, [facility] CPT-4: 60026 05/12/2015 ([id number]) 73219 EST. PATIENT, LEVEL IV Diagnosis: ESSENTIAL HYPERTENSION[ICD9: 401.9] Diagnosis: Afib[ICD9: 427.31] Diagnosis: Anxiety[ICD9: 300.00] Diagnosis: Insomnia[ICD9: 780.52] [facility] CPT-4: 56656 01/13/2015 ([id number]) OFFICE VISIT, NEW - LEVEL 4 Diagnosis: Hypothyroidism[ICD9: 244.9] Diagnosis: DIABETES TYPE II[ICD9: 250.00] Diagnosis: ESSENTIAL HYPERTENSION[ICD9: 401.9] Diagnosis: Afib[ICD9: 427.31] Diagnosis: Anxiety[ICD9: 300.00] Diagnosis: B12 deficiency[ICD9: 266.2] [facility] CPT-4: 13161 12/16/2014 Plan of Care Planned Activity Notes [...] based on previous levels of control. 09/05/2018 Patient Education: Patient Medication Summary Completed 09/05/2018 Patient Education: Hypertension Completed 09/05/2018 Patient Education: Diabetes Completed 09/05/2018 Care Plan: Comp Metabolic Pending 09/05/2018 Care Plan: Cbc With Differential Pending 09/05/2018 Care Plan: %Hba1C LOINC : 66558-6 Pending 09/05/2018 Care Plan: Tsh Pending 09/05/2018 [...] Completed 06/20/2018 Appointment: [facility] [phone] [facility] (30 min) [facility] 06/07/2018 Appointment: Injection 06/06/2018 Patient Education: Patient Medication Summary Completed 06/06/2018 Appointment: [facility] [phone] [facility] (15 min) Moderate 05/31/2018 Appointment: Injection [...] restart flonase 05/03/2018 Appointment: [facility] [phone] [facility] (15 min) Moderate 05/03/2018 Patient Education: Patient [...] intervention. 02/26/2018 Appointment: [facility] [phone] [facility] (15 min) Moderate 02/26/2018 Patient Education: Patient Medication Summary Completed 02/26/2018 Care Plan: Referral Order SNOMED-CT : [id number] Pending 02/26/2018 Appointment: Injection 02/08/2018 Patient Education: Patient Medication Summary Completed 02/08/2018 Appointment: Injection 01/24/2018 Patient Education: Patient Medication Summary Completed 01/24/2018 Appointment: Injection 01/10/2018 Patient Education: Patient Medication Summary Completed 01/10/2018 Appointment: Injection 12/27/2017 Patient Education: Patient Medication Summary Completed 12/27/2017 Appointment: Yarely Vega WPtel: [facility] (15 min) Moderate 12/26/2017 Visit Plan: Uxhewf-pivxjwahf-pvxpcrov protonix-follow up with Dr Navarro as scheduled Cough-recent bronchitis-symptoms improved-call if symptoms do not completely resolve 12/12/2017 Appointment: Janet Fam WPtel: [facility] [phone] [place] (15 min) Moderate 12/12/2017 Patient Education: Patient Medication Summary Completed 12/12/2017 Visit Plan: Bronchitis - acute case of bronchitis identified. Pt has been given antibiotics, breathing treatments as appropriate, and pt has been instructed to call if symptoms are not improved, or if symptoms acutely worsen. Cough - rx for antibiotics as well as cough medication. 12/04/2017 Appointment: Yarely Vega WPtel: [facility] [place] (15 min) Moderate 12/04/2017 Patient Education: Patient [...] Fatigue/malaise -Pt was advsied to ask the Bass Guitar Teacher the following: ask the heart doctor if [...] becoming uncontrolled. 11/20/2017 Appointment: Yarely Vega WPtel: [facility] [place] [place] (15 min) Moderate 11/20/2017 Patient Education: [...] any worse. 09/15/2017 Appointment: Janet Fam WPtel: [facility] [phone] [place] (15 min) Moderate 09/15/2017 Patient Education: Patient Medication Summary Completed 09/15/2017 Appointment: Yarely Vega WPtel: [address] [place], [place] [id number] [place] (15 min) Moderate 09/11/2017 Visit Plan: Skin tear and Cellulitis - The patient was instructed in appropriate wound care. The patient was instructed to use the antibiotic ointment as per RX. The patient is to call for any change in symptoms, increase in size of the lesion, increase in pain, worsening redness, warmth, discharge. 09/07/2017 Appointment: Brianna Otoole WPtel: [facility] [place] [place] (10 min) Simple 09/07/2017 Patient Education: Patient Medication Summary Completed 09/07/2017 Visit Plan: Lipoma - left ankle - talk to dr. barnes about possible surgery/laser for treatment of lipoma. Fatigue/malaise -Pt was advsied to ask the Bass Guitar Teacher the following: ask the heart doctor if there is an alternative to the amiodarone - you may be having side effects from the medication causing you to have pruritus (itching) and feeling like you have body aches, muscle aches, joint pain, fatigue, weight loss (decreased appetite), and pneumonia like symptoms. Congestion - claritin 10mg daily. 08/30/2017 Appointment: Yarely Vega WPtel: [facility] [place] [place] (15 min) Moderate 08/30/2017 Patient Education: Patient Medication Summary Completed 08/30/2017 Appointment: Injection 08/24/2017 Appointment: Yarely Vega WPtel: [facility] [place] [place] (15 min) Moderate 08/24/2017 Patient Education: [...] mucinex 07/06/2017 Appointment: [facility]Ptel[facility] [phone] [facility] [place] (15 min) Moderate 07/06/2017 Patient Education: [...] Brianna Otoole WPtel: [phone] [facility] (15 min) Moderate 06/20/2017 Patient [...] Bucky 06/05/2017 [facility]: [facility] [phone] [facility] [facility] - Annual Wellness Visit 06/05/2017 Patient Education: [...] or q 6 m [facility] based on previous levels of control. 05/25/2017 Appointment: Yarely Vega WPtel: [facility] (15 min) Moderate 05/25/2017 Patient Education: [...] wall. Fatigue - pt to discuss with Bass Guitar Teacher about the possibility of amiodarone causing her fatigue/malaise. 03/23/2017 Appointment: [facility]ega [facility]Ptel: [phone] [facility] [place] (15 min) Moderate 03/23/2017 Patient Education: [...] twice daily. 01/23/2017 Appointment: [facility] [phone] [facility] (15 min) Moderate 01/23/2017 Patient Education: [...] not improve. 11/02/2016 Appointment: [facility] [phone] [facility] (15 min) Moderate 11/02/2016 Patient Education: Patient [...] pain - continue with carafate 09/29/2016 Appointment: Yraely Vega WPtel: [phone] [facility] [place] (15 min) Moderate 09/29/2016 Patient Education: Patient Medication Summary Completed 09/29/2016 Appointment: Yarely Vega WPtel: [phone] [facility] [place] (15 min) Moderate 09/27/2016 Appointment: Yarely Vega WPtel: [phone] [facility] [place] (15 min) Moderate 09/20/2016 Appointment: [facility]Ptel[facility] [phone] [facility] [place] (15 min) Moderate 09/20/2016 Patient Education: Patient Medication Summary Completed 09/06/2016 Appointment: [facility]Ptel: [phone] [facility] [place] (15 min) Moderate 08/30/2016 Appointment: [...] acute concerns. 07/26/2016 Appointment: Yarely Vega WPtel: [phone] [facility] (15 min) Moderate 07/26/2016 Patient Education: Patient [...] surrogate. 05/30/2016 Appointment: [facility] [phone] [facility] [facility] - Annual Wellness Visit 05/30/2016 Patient Education: [...] - take topamax at bedtime 05/25/2016 Appointment: GaryYarely [facility]Ptel[facility] [phone] [facility] (15 min) Moderate 05/25/2016 Patient Education: Patient Medication Summary Completed 05/25/2016 Patient Education: Obesity Completed 05/25/2016 Care Plan: Referral Order SNOMED-CT : [id number] Pending 05/25/2016 Appointment: Injection 05/10/2016 Patient Education: Patient Medication Summary Completed 05/10/2016 Appointment: Injection 04/26/2016 Patient Education: Patient Medication Summary Completed 04/26/2016 Appointment: Injection 04/11/2016 Patient Education: Patient Medication Summary Completed 04/11/2016 Appointment: Injection 03/31/2016 Patient Education: Patient Medication Summary Completed 03/31/2016 Patient Education: Patient Medication Summary Completed 03/22/2016 Care Plan: SCREENINGMAMMOGRAPHYDIGITAL [facility] : [id number] Pending 03/22/2016 Appointment: Injection 03/15/2016 Patient Education: [...] concerns. 02/25/2016 Appointment: Bri[facility]ole [facility]el[facility] [phone] [facility] (15 min) Moderate 02/25/2016 Patient Education: Patient [...] case with Faiza's daughter who had left [facility]. She is interested in looking at assisted living facilities for her mom as Faiza's family is for assisted living placement sooner rather than later. 10/12/2015 Appointment: Yarely Vega WPtel: [facility] [place] (15 min) Moderate 10/12/2015 Patient Education: [...] Completed 08/17/2015 Appointment: Yarely Vega WPtel: [phone] [facility] (15 min) Moderate 08/11/2015 Appointment: Injection 08/06/2015 [...] 2 05/19/2015 Appointment: [facility]Ptel[facility] [phone] [facility] (30 min) Complex 05/19/2015 Patient Education: [...] [facility]Ptel: [facility] [place] (15 min) Moderate 01/13/2015 Patient Education: [...] medications. 12/16/2014 Appointment: [facility] [phone] [phone] [place] New Patient 12/16/2014 Patient Education: [...] case with Faiza's daughter who had left [facility]. She is interested in looking [...] [employer] paperwork for health care surrogate. . Hehsgu-[id number]-[id number] protonix-follow up with Dr Navarro as scheduled [...] Fatigue/malaise -Pt was advsied to ask the Bass Guitar Teacher the following: ask the heart doctor if [...] Fatigue/malaise -Pt was advsied to ask the Bass Guitar Teacher the following: ask the heart doctor if [...] wall. Fatigue - pt to discuss with Bass Guitar Teacher about the possibility of amiodarone causing her [...]
--- OUTSIDE RECORDS SUMMARY | 2018-12-05 17:52 | XMS REPORT | CCD ---
Author Author [facility] Organization [facility] Address [address] [place] [address] Phone Care Team Providers Care Call Centre Supervisor Name Role Phone PP Unavailable CCM Unavailable Summary Purpose Interface Exchange Insurance Providers Payer name Policy type / Coverage type Covered democrat ID Effective Begin Date Effective End Date WPS Medicare Part B Medicare Part B [id number] Unknown Principal Life Insurance Medicare Part B [id number] Unknown [employer] [facility] [place] Medicare Part B [id number] Unknown Family history Brother Diagnosis Age At Onset Heart Attack Unknown Mother Diagnosis Age At Onset Hypertension Unknown kidney disease Unknown Stroke Unknown Father Diagnosis Age At Onset Arthritis Unknown Social History Social History Element Codes Description Effective Dates Employment Unknown Retired worked at [employer] 11/20/2017 Marital status Unknown Single 12/16/[address]: 7338576 Former smoker 12/16/[address]: 874889645 Never drinks alcohol 12/16/2014 Allergies, Adverse Reactions, Alerts Substance Reaction Codes Entered Date Inactivated Date Status CODEINE RxNorm: 2670 05/25/2016 No Inactive Date Active ciprofloxacin RxNorm: 86879 12/16/2014 No Inactive Date Active MORPHINE SULFATE [...] ICD-9: 266.2 ICD-10: D51.8 Active 06/05/2017 Unknown 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 Active 07/04/2016 Unknown Essential (primary) hypertension ICD-9: 401.9 ICD-10: I10 Active 12/15/2014 Unknown Type 2 diabetes mellitus without complications ICD-9: 250.00 ICD-10: E11.9 Active 12/15/2014 Unknown Encounter for immunization ICD-9: V03.82 ICD-10: [...] anemias ICD-9: 266.2 ICD-10: D51.8 06/05/2017 Active 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 07/04/2016 Active Essential (primary) hypertension ICD-9: 401.9 ICD-10: I10 12/15/2014 Active Type 2 diabetes mellitus without complications ICD-9: 250.00 ICD-10: E11.9 12/15/2014 Active Encounter for immunization ICD-9: V03.82 ICD-10: [...] (vit B-12) 1,000 mcg/mL injection solution RxNorm: 225228 Milliliter(s) Inj 08/29/2018 08/29/2018 Inactive alprazolam 0.25 mg tablet RxNorm: 671222 1 Tablet(s) PO BID 08/21/2018 02/16/2019 Active albuterol sulfate 2.5 mg/3 mL (0.083 %) solution for nebulization RxNorm: 686941 3 Milliliter(s) INH Q6 PRN 08/15/2018 No Stop Date Active Aricept 10 mg tablet RxNorm: 284960 1 Tablet(s) PO daily 08/15/2018 08/09/2019 Active liothyronine 5 mcg tablet RxNorm: 182779 Tablet(s) TAKE 1 TABLET BY MOUTH TWICE DAILY 08/15/2018 02/10/2019 Active cyanocobalamin (vit B-12) 1,000 mcg/mL injection solution RxNorm: 546292 Milliliter(s) Inj 08/15/2018 08/15/2018 Inactive Kenalog 40 mg/mL suspension for injection RxNorm: 8104533 Milliliter(s) Inj 08/15/2018 08/15/2018 Inactive doxycycline hyclate 100 mg capsule RxNorm: 9583606 1 Capsule(s) PO BID 08/15/2018 08/24/2018 Inactive cyanocobalamin (vit B-12) 1,000 mcg/mL injection solution RxNorm: 074550 Milliliter(s) Inj 08/01/2018 08/01/2018 Inactive cyanocobalamin (vit B-12) 1,000 mcg/mL injection solution RxNorm: 187425 Milliliter(s) Inj 07/19/2018 07/19/2018 Inactive hydrocodone 5 mg-acetaminophen 325 mg tablet RxNorm: 669427 1-2 Tablet(s) PO Q6 as needed for pain 07/18/2018 08/15/2018 Inactive betamethasone valerate 0.1 % topical ointment RxNorm: 465966 1 TOP BID 07/04/2018 07/03/2018 Inactive applying to skin under nose x 10 days cyanocobalamin (vit B-12) 1,000 mcg/mL injection solution RxNorm: 621677 Milliliter(s) Inj 07/04/2018 07/04/2018 Inactive betamethasone valerate 0.1 % topical ointment RxNorm: 532093 1 TOP BID 07/04/2018 07/13/2018 Inactive applying to skin under nose x 10 days Aricept 10 mg tablet RxNorm: 469521 Tablet(s) 1 Tablet(s) PO daily 06/25/2018 08/14/2018 Inactive Flonase Allergy Relief 50 mcg/actuation nasal spray,suspension RxNorm: 1382518 [place] 1 [place] NASAL BID 06/20/2018 10/17/2018 Active cyanocobalamin (vit B-12) 1,000 mcg/mL injection solution RxNorm: 039901 Milliliter(s) Inj 06/20/2018 06/20/2018 Inactive hydrocodone 5 mg-acetaminophen 325 mg tablet RxNorm: 982975 1-2 Tablet(s) PO Q6 as needed for pain 06/20/2018 07/17/2018 Inactive cyanocobalamin (vit B-12) 1,000 mcg/mL injection solution RxNorm: 788091 Milliliter(s) Inj 06/06/2018 06/06/2018 Inactive alprazolam 0.25 mg tablet RxNorm: 731028 1 Tablet(s) PO BID 05/25/2018 08/21/2018 Inactive hydrocodone 5 mg-acetaminophen 325 mg tablet RxNorm: 555190 1-2 Tablet(s) PO Q6 as needed for pain 05/24/2018 06/19/2018 Inactive cyanocobalamin (vit B-12) 1,000 mcg/mL injection solution RxNorm: 617296 Milliliter(s) Inj 05/24/2018 05/24/2018 Inactive cyanocobalamin (vit B-12) 1,000 mcg/mL injection solution RxNorm: 020633 Milliliter(s) Inj 05/09/2018 05/09/2018 Inactive Claritin 10 mg tablet RxNorm: 353926 TAKE 1 TABLET BY MOUTH ONCE DAILY 05/08/2018 05/02/2019 Active Generic For:CLARITIN 10MG 05/07/2018 9:13:47 AM cyanocobalamin (vit B-12) 1,000 mcg/mL injection solution RxNorm: 632989 INJECT ONE 1 ML EVERY TWO WEEKS 05/03/2018 04/03/2019 Active 05/03/2018 9:13:42 AM Mobic 15 mg tablet RxNorm: 743672 Tablet(s) 1 Tablet(s) PO daily 04/26/2018 04/20/2019 Active buspirone 15 mg tablet RxNorm: 797923 Tablet(s) TAKE 1 TABLET BY MOUTH TWICE DAILY 04/26/2018 04/20/2019 Active Generic For:BUSPAR 15MG 05/31/2017 9:19:20 AM Norvasc 5 mg tablet RxNorm: 556351 Tablet(s) 1 Tablet(s) PO daily 04/26/2018 04/20/2019 Active cyanocobalamin (vit B-12) 1,000 mcg/mL injection solution RxNorm: 065000 Milliliter(s) Inj 04/26/2018 04/26/2018 Inactive hydrocodone 5 mg-acetaminophen 325 mg tablet RxNorm: 835743 1-2 Tablet(s) PO Q6 as needed for pain 04/25/2018 05/23/2018 Inactive cyanocobalamin (vit B-12) 1,000 mcg/mL injection solution RxNorm: 358170 Milliliter(s) Inj 04/12/2018 04/12/2018 Inactive Topamax 25 mg tablet RxNorm: 158074 1 Tablet(s) PO BID 04/09/2018 05/02/2018 Inactive Generic For:TOPAMAX 25MG 12/06/2016 9:15:13 AM Zoloft 50 mg tablet RxNorm: 412563 TAKE 1 TABLET BY MOUTH ONCE DAILY 04/04/2018 12/29/2018 Active Generic For:ZOLOFT 50MG 04/04/2018 9:13:25 AM cyanocobalamin (vit B-12) 1,000 mcg/mL injection solution RxNorm: 318624 Milliliter(s) Inj 03/30/2018 03/30/2018 Inactive levothyroxine 125 mcg tablet RxNorm: 174707 TAKE 1 TABLET BY MOUTH EVERY DAY 03/26/2018 09/21/2018 Active Generic For:SYNTHROID 125MCG TAB 03/26/2018 9:15:59 AM liothyronine 5 mcg tablet RxNorm: 177890 TAKE 1 TABLET BY MOUTH TWICE DAILY 03/26/2018 08/14/2018 Inactive Generic For:CYTOMEL 5MCG 03/26/2018 9:15:54 AM hydrocodone 5 mg-acetaminophen 325 mg tablet RxNorm: 178994 1-2 Tablet(s) PO Q6 as needed for pain 03/19/2018 04/17/2018 Inactive cyanocobalamin (vit B-12) 1,000 mcg/mL injection solution RxNorm: 564268 Milliliter(s) Inj 03/16/2018 03/16/2018 Inactive Flonase Allergy Relief 50 mcg/actuation nasal spray,suspension RxNorm: 1458157 1 [place] NASAL BID 03/05/2018 06/19/2018 Inactive cyanocobalamin (vit B-12) 1,000 mcg/mL injection solution RxNorm: 333922 Milliliter(s) Inj 03/02/2018 03/02/2018 Inactive alprazolam 0.25 mg tablet RxNorm: 940978 1 Tablet(s) PO BID 02/28/2018 05/27/2018 Inactive cyanocobalamin (vit B-12) 1,000 mcg/mL injection solution RxNorm: 654777 Milliliter(s) Inj 02/08/2018 02/08/2018 Inactive cyanocobalamin (vit B-12) 1,000 mcg/mL injection solution RxNorm: 825990 Milliliter(s) Inj 01/24/2018 01/24/2018 Inactive albuterol sulfate 2.5 mg/3 mL (0.083 %) solution for nebulization RxNorm: 698834 3 Milliliter(s) INH Q6 PRN 01/24/2018 05/02/2018 Inactive Claritin 10 mg tablet RxNorm: 686676 1 Tablet(s) PO daily 01/15/2018 05/07/2018 Inactive cyanocobalamin (vit B-12) 1,000 mcg/mL injection solution RxNorm: 621541 Milliliter(s) Inj 01/10/2018 01/10/2018 Inactive hydrocodone 5 mg-acetaminophen 325 mg tablet RxNorm: 503529 1-2 Tablet(s) PO Q6 as needed for pain 01/09/2018 02/07/2018 Inactive cyanocobalamin (vit B-12) 1,000 mcg/mL injection solution RxNorm: 207286 Milliliter(s) Inj 12/27/2017 12/27/2017 Inactive cyanocobalamin (vit B-12) 1,000 mcg/mL injection solution RxNorm: 571523 1 Milliliter(s) Inj 12/12/2017 12/12/2017 Inactive Zofran ODT 4 mg disintegrating tablet RxNorm: 296411 1 Tablet(s) PO TID as needed 12/08/2017 12/09/2017 Inactive hydrocodone 2.5 mg-guaifenesin 200 mg/5 mL oral solution RxNorm: 167934 5 Milliliter(s) PO 12/04/2017 05/06/2018 Inactive doxycycline hyclate 100 mg capsule RxNorm: 9452406 1 Capsule(s) PO BID 12/04/2017 12/13/2017 Inactive cyanocobalamin (vit B-12) 1,000 mcg/mL injection solution RxNorm: 753716 Milliliter(s) Inj 12/01/2017 12/01/2017 Inactive Flonase Allergy Relief 50 mcg/actuation nasal spray,suspension RxNorm: 2565438 1 [place] NASAL BID 11/20/2017 2018 Inactive cyanocobalamin (vit B-12) 1,000 mcg/mL injection solution RxNorm: 121417 1 Milliliter(s) Inj 11/17/2017 11/17/2017 Inactive hydrocodone 5 mg-acetaminophen 325 mg tablet RxNorm: 887470 1-2 Tablet(s) PO Q6 as needed for pain 11/16/2017 12/15/2017 Inactive cyanocobalamin (vit B-12) 1,000 mcg/mL injection solution RxNorm: 078734 1 Milliliter(s) Inj 11/02/2017 11/02/2017 Inactive hydrocodone 5 mg-acetaminophen 325 mg tablet RxNorm: 089085 1-2 Tablet(s) PO Q6 as needed for pain 10/25/2017 11/15/2017 Inactive Claritin 10 mg tablet RxNorm: 438604 1 Tablet(s) PO daily 10/25/2017 11/19/2017 Inactive albuterol sulfate 2.5 mg/3 mL (0.083 %) solution for nebulization RxNorm: 002787 3 Milliliter(s) INH Q6 PRN 10/25/2017 01/23/2018 Inactive Claritin 10 mg tablet RxNorm: 201196 1 Tablet(s) PO daily 10/25/2017 10/24/2017 Inactive cyanocobalamin (vit B-12) 1,000 mcg/mL injection solution RxNorm: 118580 1 Milliliter(s) Inj 10/20/2017 10/20/2017 Inactive Zoloft 50 mg tablet RxNorm: 206665 TAKE 1 TABLET BY MOUTH ONCE DAILY 10/13/2017 04/03/2018 Inactive Generic For:ZOLOFT 50MG 10/13/2017 8:59:44 AM cyanocobalamin (vit B-12) 1,000 mcg/mL injection solution RxNorm: 663737 Milliliter(s) Inj 10/06/2017 10/06/2017 Inactive liothyronine 5 mcg tablet RxNorm: 209490 TAKE 1 TABLET BY MOUTH TWICE DAILY 10/03/2017 03/25/2018 Inactive Generic For:CYTOMEL 5MCG 10/03/2017 9:13:38 AM cyanocobalamin (vit B-12) 1,000 mcg/mL injection solution RxNorm: 774930 Milliliter(s) Inj 09/21/2017 09/21/2017 Inactive albuterol sulfate 2.5 mg/3 mL (0.083 %) solution for nebulization RxNorm: 474608 3 Milliliter(s) INH Q6 PRN 09/21/2017 10/24/2017 Inactive hydrocodone 5 mg-acetaminophen 325 mg tablet RxNorm: 252382 1-2 Tablet(s) PO Q6 as needed for pain 09/21/2017 10/20/2017 Inactive Kenalog 40 mg/mL suspension for injection RxNorm: 3166239 Milliliter(s) Inj 09/15/2017 09/15/2017 Inactive Keflex 500 mg capsule RxNorm: 788119 1 Capsule(s) PO TID 09/07/2017 09/16/2017 Inactive Please deliver to patient cyanocobalamin (vit B-12) 1,000 mcg/mL injection solution RxNorm: 321425 Milliliter(s) Inj 09/07/2017 09/07/2017 Inactive alprazolam 0.25 mg tablet RxNorm: 025096 1 Tablet(s) PO BID 09/06/2017 02/27/2018 Inactive Aricept 10 mg tablet RxNorm: 338271 1 Tablet(s) PO daily 09/06/2017 06/24/2018 Inactive hydrocodone 5 mg-acetaminophen 325 mg tablet RxNorm: 491361 1-2 Tablet(s) PO Q6 as needed for pain 08/24/2017 09/20/2017 Inactive cyanocobalamin (vit B-12) 1,000 mcg/mL injection solution RxNorm: 716438 Milliliter(s) Inj 08/24/2017 08/24/2017 Inactive Norvasc 5 mg tablet RxNorm: 740647 1 Tablet(s) PO daily 08/18/2017 04/25/2018 Inactive nystatin 100,000 unit/gram topical powder RxNorm: 431408 1 Gram(s) TOP QID 08/17/2017 08/26/2017 Inactive hydrocodone 5 mg-acetaminophen 325 mg tablet RxNorm: 872284 1-2 Tablet(s) PO Q6 as needed for pain 07/25/2017 08/23/2017 Inactive Tamiflu 75 mg capsule RxNorm: 307801 1 Capsule(s) PO BID 07/24/2017 12/11/2017 Inactive nystatin 100,000 unit/gram topical powder RxNorm: 735798 1 Gram(s) TOP QID 07/14/2017 07/22/2017 Inactive levothyroxine 125 mcg tablet RxNorm: 698105 Tablet(s) 1 Tablet(s) PO daily 07/10/2017 01/05/2018 Inactive nystatin 100,000 unit/gram topical powder RxNorm: 798648 1 Gram(s) TOP QID 07/06/2017 07/13/2017 Inactive cyanocobalamin (vit B-12) 1,000 mcg/mL injection solution RxNorm: 863037 Milliliter(s) Inj 07/06/2017 07/06/2017 Inactive Kenalog 40 mg/mL suspension for injection RxNorm: 2202625 1 Milliliter(s) Inj 06/20/2017 06/20/2017 Inactive doxycycline hyclate 100 mg capsule RxNorm: 0327235 1 Capsule(s) PO BID 06/20/2017 06/26/2017 Inactive cyanocobalamin (vit B-12) 1,000 mcg/mL injection solution RxNorm: 461410 Milliliter(s) Inj 06/20/2017 06/20/2017 Inactive Keflex 500 mg capsule RxNorm: 050340 1 Capsule(s) PO TID 06/14/2017 06/23/2017 Inactive Please deliver to patient Mobic 15 mg tablet RxNorm: 295039 1 Tablet(s) PO daily 06/14/2017 04/25/2018 Inactive cyanocobalamin (vit B-12) 1,000 mcg/mL injection solution RxNorm: 931806 Milliliter(s) Inj 06/05/2017 06/05/2017 Inactive buspirone 15 mg tablet RxNorm: 919080 TAKE 1 TABLET BY MOUTH TWICE DAILY 05/31/2017 04/25/2018 Inactive Generic For:BUSPAR 15MG 05/31/2017 9:19:20 AM cyanocobalamin (vit B-12) 1,000 mcg/mL injection solution RxNorm: 615277 Milliliter(s) Inj 05/25/2017 05/25/2017 Inactive hydrocodone 5 mg-acetaminophen 325 mg tablet RxNorm: 450232 1-2 Tablet(s) PO Q6 as needed for pain 05/25/2017 06/23/2017 Inactive amiodarone 200 mg tablet RxNorm: 666137 1/2 Tablet(s) PO daily 05/22/2017 No Stop Date Active cardiology decreased to 100mg daily cyanocobalamin (vit B-12) 1,000 mcg/mL injection solution RxNorm: 326747 Milliliter(s) Inj 05/16/2017 05/16/2017 Inactive Zofran ODT 4 mg disintegrating tablet RxNorm: 678430 1 Tablet(s) PO TID as needed 05/03/2017 05/04/2017 Inactive hydrocodone 5 mg-acetaminophen 325 mg tablet RxNorm: 585549 1-2 Tablet(s) PO Q6 as needed for pain 05/01/2017 05/05/2017 Inactive cyanocobalamin (vit B-12) 1,000 mcg/mL injection solution RxNorm: 641905 1 Milliliter(s) Inj 05/01/2017 05/01/2017 Inactive cyanocobalamin (vit B-12) 1,000 mcg/mL injection solution RxNorm: 451995 INJECT ONE 1 ML EVERY TWO WEEKS 04/26/2017 12/04/2018 Active 04/26/2017 9:08:52 AM Zoloft 50 mg tablet RxNorm: 452773 Tablet(s) TAKE 1 TABLET BY MOUTH DAILY 04/25/2017 10/12/2017 Inactive Generic For:ZOLOFT 50MG cyanocobalamin (vit B-12) 1,000 mcg/mL injection solution RxNorm: 663167 Milliliter(s) Inj 04/18/2017 04/18/2017 Inactive liothyronine 5 mcg tablet RxNorm: 613672 1 Tablet(s) PO BID 04/13/2017 10/02/2017 Inactive cyanocobalamin (vit B-12) 1,000 mcg/mL injection solution RxNorm: 114556 Milliliter(s) Inj 04/06/2017 04/06/2017 Inactive hydrocodone 5 mg-acetaminophen 325 mg tablet RxNorm: 199109 1-2 Tablet(s) PO Q6 as needed for pain 04/06/2017 04/10/2017 Inactive cyanocobalamin (vit B-12) 1,000 mcg/mL injection solution RxNorm: 674664 Milliliter(s) Inj 03/22/2017 03/22/2017 Inactive alprazolam 0.25 mg tablet RxNorm: 982107 1 Tablet(s) PO BID 03/17/2017 12/11/2017 Inactive alprazolam 0.25 mg tablet RxNorm: 433808 1 Tablet(s) PO BID 03/16/2017 09/05/2017 Inactive hydrocodone 5 mg-acetaminophen 325 mg tablet RxNorm: 131656 1-2 Tablet(s) PO Q6 as needed for pain 03/09/2017 03/13/2017 Inactive cyanocobalamin (vit B-12) 1,000 mcg/mL injection solution RxNorm: 288094 Milliliter(s) Inj 03/09/2017 03/09/2017 Inactive cyanocobalamin (vit B-12) 1,000 mcg/mL injection solution RxNorm: 991139 Milliliter(s) Inj 02/23/2017 02/23/2017 Inactive cyanocobalamin (vit B-12) 1,000 mcg/mL injection solution RxNorm: 849630 Milliliter(s) Inj 02/09/2017 02/09/2017 Inactive hydrocodone 5 mg-acetaminophen 325 mg tablet RxNorm: 443937 1-2 Tablet(s) PO Q6 as needed for pain 02/08/2017 02/12/2017 Inactive Topamax 25 mg tablet RxNorm: 337470 1 Tablet(s) PO BID 01/23/2017 05/22/2017 Inactive Generic For:TOPAMAX 25MG 12/06/2016 9:15:13 AM cyanocobalamin (vit B-12) 1,000 mcg/mL injection solution RxNorm: 624682 Milliliter(s) Inj 01/23/2017 01/23/2017 Inactive cyanocobalamin (vit B-12) 1,000 mcg/mL injection solution RxNorm: 411813 Milliliter(s) Inj 01/10/2017 01/10/2017 Inactive hydrocodone 5 mg-acetaminophen 325 mg tablet RxNorm: 789811 1-2 Tablet(s) PO Q6 as needed for pain 01/09/2017 01/13/2017 Inactive cyanocobalamin (vit B-12) 1,000 mcg/mL injection solution RxNorm: 270591 1 Milliliter(s) Inj 12/28/2016 12/28/2016 Inactive cyanocobalamin (vit B-12) 1,000 mcg/mL injection solution RxNorm: 727971 Milliliter(s) Inj 12/14/2016 12/14/2016 Inactive buspirone 15 mg tablet RxNorm: 668181 1 Tablet(s) PO BID 12/12/2016 05/30/2017 Inactive hydrocodone 5 mg-acetaminophen 325 mg tablet RxNorm: 909644 1-2 Tablet(s) PO Q6 as needed for pain 12/08/2016 12/12/2016 Inactive Topamax 25 mg tablet RxNorm: 955660 TAKE 1 TABLET BY MOUTH EVERY DAY AT BEDTIME 12/06/2016 01/22/2017 Inactive Generic For:TOPAMAX 25MG 12/06/2016 9:15:13 AM Lac-Hydrin Five 5 % lotion RxNorm: 757763 1 Gram(s) TOP daily 12/02/2016 05/02/2018 Inactive cyanocobalamin (vit B-12) 1,000 mcg/mL injection solution RxNorm: 025742 Milliliter(s) Inj 11/24/2016 11/24/2016 Inactive Ceftin 500 mg tablet RxNorm: 884793 1 Tablet(s) PO BID 11/11/2016 06/13/2017 Inactive Cipro 500 mg tablet RxNorm: 393893 1 Tablet(s) PO BID 11/11/2016 11/10/2016 Inactive Cipro 500 mg tablet RxNorm: 086612 1 Tablet(s) PO BID 11/11/2016 11/11/2016 Inactive cyanocobalamin (vit B-12) 1,000 mcg/mL injection solution RxNorm: 770764 1 Milliliter(s) Inj 11/07/2016 11/07/2016 Inactive hydrocodone 5 mg-acetaminophen 325 mg tablet RxNorm: 580244 1-2 Tablet(s) PO Q6 as needed for pain 11/02/2016 11/06/2016 Inactive cyanocobalamin (vit B-12) 1,000 mcg/mL injection solution RxNorm: 788310 Milliliter(s) Inj 10/24/2016 10/24/2016 Inactive levothyroxine 125 mcg tablet RxNorm: 749208 Tablet(s) 1 Tablet(s) PO daily 10/24/2016 04/21/2017 Inactive liothyronine 5 mcg tablet RxNorm: 468603 1 Tablet(s) PO BID 10/24/2016 04/12/2017 Inactive hydrocodone 5 mg-acetaminophen 325 mg tablet RxNorm: 656699 1-2 Tablet(s) PO Q6 as needed for pain 10/17/2016 10/21/2016 Inactive Keflex 500 mg capsule RxNorm: 894085 1 Capsule(s) PO TID 10/07/2016 10/06/2016 Inactive Keflex 500 mg capsule RxNorm: 365744 1 Capsule(s) PO TID 10/07/2016 10/16/2016 Inactive Please deliver to patient cyanocobalamin (vit B-12) 1,000 mcg/mL injection solution RxNorm: 372493 1 Milliliter(s) Inj 09/29/2016 09/29/2016 Inactive alprazolam 0.25 mg tablet RxNorm: 044252 1 Tablet(s) PO BID 09/20/2016 03/16/2017 Inactive Cozaar 100 mg tablet RxNorm: 216443 1 Tablet(s) PO daily 09/14/2016 No Stop Date Active metoprolol tartrate 50 mg tablet RxNorm: 374907 1/2 Tablet(s) PO BID 09/14/2016 12/12/2016 Inactive Zoloft 50 mg tablet RxNorm: 947875 Tablet(s) TAKE 1 TABLET BY MOUTH DAILY 09/14/2016 03/12/2017 Inactive Generic For:ZOLOFT 50MG liothyronine 5 mcg tablet RxNorm: 821177 1 Tablet(s) PO BID 09/14/2016 10/23/2016 Inactive Calmoseptine 0.44 %-20.6 % topical ointment RxNorm: 646320 1 Application TOP BID and as needed to sore on buttocks 09/07/2016 No Stop Date Active cyanocobalamin (vit B-12) 1,000 mcg/mL injection solution RxNorm: 354237 Milliliter(s) Inj 08/29/2016 08/29/2016 Inactive hydrocodone 5 mg-acetaminophen 325 mg tablet RxNorm: 771852 1-2 Tablet(s) PO Q6 as needed for pain 08/29/2016 10/16/2016 Inactive levothyroxine 125 mcg tablet RxNorm: 355400 1 Tablet(s) PO daily 08/25/2016 10/23/2016 Inactive Topamax 25 mg tablet RxNorm: 808303 TAKE 1 TABLET BY MOUTH EVERY DAY AT BEDTIME 08/17/2016 12/05/2016 Inactive Generic For:TOPAMAX 25MG 08/17/2016 2:14:37 PM hydrocodone 5 mg-acetaminophen 325 mg tablet RxNorm: 616612 1-2 Tablet(s) PO Q6 as needed for pain 08/11/2016 08/28/2016 Inactive hydrocodone 5 mg-acetaminophen 325 mg tablet RxNorm: 817982 1 -2 Tablet(s) PO Q6 as needed for pain 08/11/2016 08/18/2016 Inactive hydrocodone 5 mg-acetaminophen 325 mg tablet RxNorm: 812574 1 Tablet(s) PO Q6 as needed for pain 08/05/2016 08/10/2016 Inactive cyanocobalamin (vit B-12) 1,000 mcg/mL injection solution RxNorm: 242180 Milliliter(s) Inj 08/04/2016 08/04/2016 Inactive Norvasc 10 mg tablet RxNorm: 413730 1 Tablet(s) PO daily 07/26/2016 07/20/2017 Inactive alprazolam 0.25 mg tablet RxNorm: 822301 1 Tablet(s) PO QHS 07/21/2016 09/19/2016 Inactive Norvasc 5 mg tablet RxNorm: 848871 1 Tablet(s) PO daily 07/21/2016 07/25/2016 Inactive levothyroxine 125 mcg tablet RxNorm: 587338 1 Tablet(s) PO daily 07/21/2016 12/11/2017 Inactive cyanocobalamin (vit B-12) 1,000 mcg/mL injection solution RxNorm: 986470 Milliliter(s) Inj 07/21/2016 07/21/2016 Inactive Zoloft 50 mg tablet RxNorm: 923248 Tablet(s) TAKE 1 TABLET BY MOUTH DAILY 07/21/2016 09/13/2016 Inactive Generic For:ZOLOFT 50MG cyanocobalamin (vit B-12) 1,000 mcg/mL injection solution RxNorm: 354101 1 Milliliter(s) Inj 07/05/2016 07/05/2016 Inactive cyanocobalamin (vit B-12) 1,000 mcg/mL injection solution RxNorm: 697092 1 Milliliter(s) Inj 06/22/2016 06/22/2016 Inactive cyanocobalamin (vit B-12) 1,000 mcg/mL injection solution RxNorm: 192951 Milliliter(s) Inj 06/09/2016 06/09/2016 Inactive Aricept 10 mg tablet RxNorm: 614059 1 Tablet(s) PO daily 05/27/2016 05/21/2017 Inactive Mobic 15 mg tablet RxNorm: 119776 1 Tablet(s) PO daily 05/27/2016 05/21/2017 Inactive levothyroxine 125 mcg tablet RxNorm: 271519 1 Tablet(s) PO daily 05/25/2016 07/20/2016 Inactive cyanocobalamin (vit B-12) 1,000 mcg/mL injection solution RxNorm: 144832 1 Milliliter(s) Inj 05/25/2016 05/25/2016 Inactive doxycycline hyclate 100 mg capsule RxNorm: 9067569 1 Capsule(s) PO BID 05/16/2016 05/15/2016 Inactive doxycycline hyclate 100 mg capsule RxNorm: 3961410 1 Capsule(s) PO BID 05/16/2016 05/22/2016 Inactive cyanocobalamin (vit B-12) 1,000 mcg/mL injection solution RxNorm: 244163 Milliliter(s) Inj 05/10/2016 05/10/2016 Inactive cyanocobalamin (vit B-12) 1,000 mcg/mL injection solution RxNorm: 081795 Milliliter(s) Inj 04/26/2016 04/26/2016 Inactive Topamax 25 mg tablet RxNorm: 577907 1 Tablet(s) PO QPM 04/22/2016 08/16/2016 Inactive cyanocobalamin (vit B-12) 1,000 mcg/mL injection solution RxNorm: 585437 Milliliter(s) 1 Milliliter(s) Inj [id number] 04/11/2016 12/31/2017 Inactive liothyronine 5 mcg tablet RxNorm: 377773 1 Tablet(s) PO BID 04/11/2016 09/13/2016 Inactive cyanocobalamin (vit B-12) 1,000 mcg/mL injection solution RxNorm: 498893 Milliliter(s) Inj 04/11/2016 04/11/2016 Inactive cyanocobalamin (vit B-12) 1,000 mcg/mL injection solution RxNorm: 048841 Milliliter(s) Inj 03/31/2016 03/31/2016 Inactive cyanocobalamin (vit B-12) 1,000 mcg/mL injection solution RxNorm: 604802 1 Milliliter(s) Inj 03/15/2016 03/15/2016 Inactive levothyroxine 125 mcg tablet RxNorm: 178322 1 Tablet(s) PO daily 2016 03/03/2016 Inactive levothyroxine 125 mcg tablet RxNorm: 397585 1 Tablet(s) PO daily 2016 05/24/2016 Inactive cyanocobalamin (vit B-12) 1,000 mcg/mL injection solution RxNorm: 093601 Milliliter(s) Inj 02/25/2016 02/25/2016 Inactive cyanocobalamin (vit B-12) 1,000 mcg/mL injection solution RxNorm: 797367 1 Milliliter(s) Inj 02/02/2016 02/02/2016 Inactive sucralfate 1 gram tablet RxNorm: 538307 1 Tablet(s) PO QHS 01/25/2016 No Stop Date Active amiodarone 200 mg tablet RxNorm: 881915 1/2 Tablet(s) PO BID 01/25/2016 05/21/2017 Inactive cyanocobalamin (vit B-12) 1,000 mcg/mL injection solution RxNorm: 672034 Milliliter(s) Inj 01/18/2016 01/18/2016 Inactive cyanocobalamin (vit B-12) 1,000 mcg/mL injection solution RxNorm: 972055 Milliliter(s) Inj 12/29/2015 12/29/2015 Inactive Topamax 25 mg tablet RxNorm: 344273 1 Tablet(s) PO QPM 12/08/2015 04/05/2016 Inactive cyanocobalamin (vit B-12) 1,000 mcg/mL injection solution RxNorm: 982664 Milliliter(s) Inj 12/08/2015 12/08/2015 Inactive Bactrim DS 800 mg-160 mg tablet RxNorm: 204968 1 Tablet(s) PO BID 11/23/2015 11/22/2015 Inactive cyanocobalamin (vit B-12) 1,000 mcg/mL injection solution RxNorm: 912491 Milliliter(s) Inj 11/23/2015 11/23/2015 Inactive Bactrim DS 800 mg-160 mg tablet RxNorm: 031241 1 Tablet(s) PO BID 11/23/2015 11/29/2015 Inactive cyanocobalamin (vit B-12) 1,000 mcg/mL injection solution RxNorm: 398643 Milliliter(s) Inj 11/11/2015 11/11/2015 Inactive amoxicillin 500 mg capsule RxNorm: 095575 1 Capsule(s) PO TID 11/10/2015 11/19/2015 Inactive Zithromax Z-Henrique 250 mg tablet RxNorm: 953340 1 Tablet(s) PO UD 11/10/2015 01/24/2016 Inactive zpack x 1 amoxicillin 500 mg capsule RxNorm: 405414 1 Capsule(s) PO TID 11/10/2015 11/09/2015 Inactive cyanocobalamin (vit B-12) 1,000 mcg/mL injection solution RxNorm: 559787 1 Milliliter(s) Inj 10/29/2015 10/29/2015 Inactive Kersey 3 capsule RxNorm: 1 Capsule(s) PO QAM , 2 Capsules at noon, 1 Capsule QHS 10/13/2015 No Stop Date Active potassium chloride ER 20 mEq tablet,extended release RxNorm: 224588 2 Tablet(s) PO daily at noon 10/13/2015 No Stop Date Active alprazolam 0.25 mg tablet RxNorm: 162858 1 Tablet(s) PO QHS 10/13/2015 07/20/2016 Inactive amiodarone 200 mg tablet RxNorm: 057065 1 Tablet(s) PO BID 10/13/2015 01/24/2016 Inactive cyanocobalamin (vit B-12) 1,000 mcg/mL injection solution RxNorm: 530234 1 Milliliter(s) Inj 10/12/2015 10/12/2015 Inactive Zofran 4 mg tablet RxNorm: 171760 1 Tablet(s) PO daily as needed 10/07/2015 05/24/2016 Inactive Zoloft 50 mg tablet RxNorm: 950469 TAKE 1 TABLET BY MOUTH DAILY 10/05/2015 05/01/2016 Inactive Generic For:ZOLOFT 50MG cyanocobalamin (vit B-12) 1,000 mcg/mL injection solution RxNorm: 947108 1 Milliliter(s) Inj 09/29/2015 09/29/2015 Inactive cyanocobalamin (vit B-12) 1,000 mcg/mL injection solution RxNorm: 544466 1 Milliliter(s) Inj 09/17/2015 09/17/2015 Inactive Norvasc 5 mg tablet RxNorm: 744693 1 Tablet(s) PO daily 09/17/2015 07/20/2016 Inactive liothyronine 5 mcg tablet RxNorm: 442229 1 Tablet(s) PO BID 09/17/2015 03/14/2016 Inactive Zoloft 50 mg tablet RxNorm: 717980 1 Tablet(s) PO daily 09/17/2015 10/04/2015 Inactive buspirone 15 mg tablet RxNorm: 307238 1 Tablet(s) PO BID 09/17/2015 09/10/2016 Inactive buspirone 15 mg tablet RxNorm: 243125 1 Tablet(s) PO BID 09/14/2015 09/16/2015 Inactive Topamax 25 mg tablet RxNorm: 799394 1 Tablet(s) PO QPM 09/03/2015 12/07/2015 Inactive cyanocobalamin (vit B-12) 1,000 mcg/mL injection solution RxNorm: 941283 1 Milliliter(s) Inj 09/03/2015 09/03/2015 Inactive cyanocobalamin (vit B-12) 1,000 mcg/mL injection solution RxNorm: 288831 Milliliter(s) Inj 08/17/2015 08/17/2015 Inactive cyanocobalamin (vit B-12) 1,000 mcg/mL injection solution RxNorm: 570679 Milliliter(s) Inj 08/06/2015 08/06/2015 Inactive levothyroxine 150 mcg tablet RxNorm: 656913 1 Tablet(s) PO daily 07/22/2015 03/03/2016 Inactive Aricept 10 mg tablet RxNorm: 051244 1 Tablet(s) PO daily 07/22/2015 05/26/2016 Inactive Mobic 15 mg tablet RxNorm: 895844 1 Tablet(s) PO daily 07/22/2015 05/26/2016 Inactive cyanocobalamin (vit B-12) 1,000 mcg/mL injection solution RxNorm: 139621 Milliliter(s) Inj 07/22/2015 07/22/2015 Inactive liothyronine 5 mcg tablet RxNorm: 346719 1 Tablet(s) PO BID 07/22/2015 09/16/2015 Inactive cyanocobalamin (vit B-12) 1,000 mcg/mL injection solution RxNorm: 291033 Milliliter(s) Inj 07/08/2015 07/08/2015 Inactive cyanocobalamin (vit B-12) 1,000 mcg/mL injection solution RxNorm: 513911 Milliliter(s) Inj 06/23/2015 06/23/2015 Inactive cyanocobalamin (vit B-12) 1,000 mcg/mL injection solution RxNorm: 991195 1 Milliliter(s) Inj 06/08/2015 06/08/2015 Inactive cyanocobalamin (vit B-12) 1,000 mcg/mL injection solution RxNorm: 721470 Milliliter(s) Inj 05/27/2015 05/27/2015 Inactive Aricept 10 mg tablet RxNorm: 897196 1 Tablet(s) PO daily 05/20/2015 07/21/2015 Inactive Zofran 4 mg tablet RxNorm: 398041 1 Tablet(s) PO daily as needed 05/20/2015 06/18/2015 Inactive alprazolam 0.25 mg tablet RxNorm: 040288 1 Tablet(s) PO BID 05/20/2015 10/12/2015 Inactive Mobic 15 mg tablet RxNorm: 839526 1 Tablet(s) PO daily 05/20/2015 07/21/2015 Inactive tramadol ER 100 mg tablet,extended release 24 hr RxNorm: 489550 1 Tablet(s) PO Q6 as needed 05/13/2015 No Stop Date Active cyanocobalamin (vit B-12) 1,000 mcg/mL injection solution RxNorm: 215972 1 Milliliter(s) Inj 05/12/2015 05/12/2015 Inactive Topamax 25 mg tablet RxNorm: 076513 1 Tablet(s) PO BID (start at one pill at bedtime x 1week then twice daily thereafter) 05/12/2015 09/02/2015 Inactive cyanocobalamin (vit B-12) 1,000 mcg/mL injection kit RxNorm: 785051 kit Inj 04/30/2015 04/30/2015 Inactive cyanocobalamin (vit B-12) 1,000 mcg/mL injection solution RxNorm: 249388 Milliliter(s) Inj 04/16/2015 04/16/2015 Inactive levothyroxine 150 mcg tablet RxNorm: 749628 1 Tablet(s) PO daily 04/08/2015 07/21/2015 Inactive cyanocobalamin (vit B-12) 1,000 mcg/mL injection solution RxNorm: 059072 Milliliter(s) 1 Milliliter(s) Inj [id number] 04/08/2015 04/10/2016 Inactive Cytomel 5 mcg tablet RxNorm: 231265 1 Tablet(s) PO BID 04/08/2015 10/12/2015 Inactive Cytomel 5 mcg tablet RxNorm: 484827 1 Tablet(s) PO BID 04/07/2015 04/07/2015 Inactive Cytomel 5 mcg tablet RxNorm: 800567 1 Tablet(s) PO BID 04/07/2015 04/06/2015 Inactive cyanocobalamin (vit B-12) 1,000 mcg/mL injection solution RxNorm: 305271 Milliliter(s) Inj 04/02/2015 04/02/2015 Inactive cyanocobalamin (vit B-12) 1,000 mcg/mL injection solution RxNorm: 307014 Milliliter(s) Inj 03/18/2015 03/18/2015 Inactive cyanocobalamin (vit B-12) 1,000 mcg/mL injection solution RxNorm: 749407 Milliliter(s) 1 Milliliter(s) Inj [id number] 03/18/2015 04/07/2015 Inactive cyanocobalamin (vit B-12) 1,000 mcg/mL injection solution RxNorm: 822087 1 Milliliter(s) Inj [id number] 03/16/2015 03/17/2015 Inactive cyanocobalamin (vit B-12) 1,000 mcg/mL injection solution RxNorm: 929701 Milliliter(s) Inj 03/03/2015 03/03/2015 Inactive cyanocobalamin (vit B-12) 1,000 mcg/mL injection solution RxNorm: 254150 Milliliter(s) Inj 02/18/2015 02/18/2015 Inactive cyanocobalamin (vit B-12) 1,000 mcg/mL injection solution RxNorm: 937152 Milliliter(s) Inj 02/04/2015 02/04/2015 Inactive cyanocobalamin (vit B-12) 1,000 mcg/mL injection solution RxNorm: 564690 Milliliter(s) Inj 01/22/2015 01/22/2015 Inactive Lac-Hydrin Five 5 % lotion RxNorm: 067622 1 TOP daily 01/13/2015 03/13/2015 Inactive Lac-Hydrin Five 5 % lotion RxNorm: 843370 1 TOP daily 01/13/2015 01/12/2015 Inactive cyanocobalamin (vit B-12) 1,000 mcg/mL injection solution RxNorm: 079538 Milliliter(s) Inj 01/08/2015 01/08/2015 Inactive cyanocobalamin (vit B-12) 1,000 mcg/mL injection solution RxNorm: 144577 Milliliter(s) Inj 12/25/2014 12/25/2014 Inactive levothyroxine 150 mcg tablet RxNorm: 170088 1 Tablet(s) PO daily 12/24/2014 04/07/2015 Inactive tramadol 50 mg tablet RxNorm: 582766 1-2 Tablet(s) PO Q6 as needed 12/17/2014 05/12/2015 Inactive alprazolam 0.25 mg tablet RxNorm: 637990 1 Tablet(s) PO BID 12/17/2014 04/15/2015 Inactive Pradaxa 150 mg capsule RxNorm: 6503287 1 Capsule(s) PO BID 12/16/2014 No Stop Date Active metoprolol tartrate 50 mg tablet RxNorm: 244310 1/2 Tablet(s) PO BID 12/16/2014 09/13/2016 Inactive buspirone 15 mg tablet RxNorm: 120643 1 Tablet(s) PO BID 12/16/2014 09/13/2015 Inactive cyanocobalamin (vit B-12) 1,000 mcg/mL injection solution RxNorm: 199126 1 Milliliter(s) Inj [id number] 12/16/2014 03/15/2015 Inactive cyanocobalamin (vit B-12) 1,000 mcg/mL injection solution RxNorm: 504646 1 Milliliter(s) Inj [id number] 12/16/2014 12/15/2014 Inactive sucralfate 1 gram tablet RxNorm: 523453 Tablet(s) PO QID 12/16/2014 12/10/2015 Inactive cyanocobalamin (vit B-12) 1,000 mcg/mL injection solution RxNorm: 733691 Milliliter(s) Inj 12/10/2014 12/10/2014 Inactive cyanocobalamin (vit B-12) 1,000 mcg/mL injection solution RxNorm: 325942 Milliliter(s) Inj 11/26/2014 11/26/2014 Inactive Zoloft 50 mg tablet RxNorm: 825661 1 Tablet(s) PO daily 11/24/2014 06/21/2015 Inactive Zoloft 50 mg tablet RxNorm: 819341 1 Tablet(s) PO daily 11/24/2014 11/23/2014 Inactive cyanocobalamin (vit B-12) 1,000 mcg/mL injection kit RxNorm: 594501 Milliliter(s) Inj 11/12/2014 11/12/2014 Inactive cyanocobalamin (vit B-12) 1,000 mcg/mL injection solution RxNorm: 962021 Milliliter(s) Inj 10/28/2014 10/28/2014 Inactive [SAVINGS FOR NON-COVERED DRUGS -- BIN:[id number], PCN: [id number], Group: [id number], ID# [id number], Questions: . THIS IS NOT INSURANCE.] promethazine oral RxNorm: 8745 oral No Start Date Active tramadol 50 mg tablet RxNorm: 180119 1 Tablet(s) PO TID No Start Date Active digoxin 125 mcg tablet RxNorm: 817378 Tablet(s) PO every other day No Start Date Active furosemide 40 mg tablet RxNorm: 922862 1 Tablet(s) PO daily No Start Date Active Vitamin D3 5,000 unit tablet RxNorm: 361952 1 Tablet(s) PO daily No Start Date Active erythromycin 250 mg capsule,delayed release RxNorm: 289173 1 Capsule(s) PO AC No Start Date Active Protonix 40 mg tablet,delayed release RxNorm: 341867 1 Tablet(s) PO BID No Start Date Active Cozaar 100 mg tablet RxNorm: 966797 1 Tablet(s) PO daily No Start Date 09/13/2016 Inactive sucralfate 1 gram tablet RxNorm: 997205 Tablet(s) PO QID No Start Date 12/15/2014 Inactive amiodarone 200 mg tablet RxNorm: 005310 2 Tablet(s) PO daily No Start Date 10/13/2015 Inactive buspirone 15 mg tablet RxNorm: 279796 1 Tablet(s) PO daily No Start Date 12/15/2014 Inactive potassium chloride ER 20 mEq tablet,extended release RxNorm: 255466 1 Tablet(s) PO daily No Start Date 10/12/2015 Inactive Prilosec 40 mg capsule,delayed release RxNorm: 384191 1 Capsule(s) PO daily No Start Date 09/02/2015 Inactive Kersey 3 capsule RxNorm: Capsule(s) PO No Start Date 10/12/2015 Inactive alprazolam 0.25 mg tablet RxNorm: 751805 Tablet(s) PO QHS No Start Date 12/16/2014 Inactive levothyroxine 125 mcg tablet RxNorm: 276767 1 Tablet(s) PO daily No Start Date 12/23/2014 Inactive liothyronine 5 mcg tablet RxNorm: 097017 1 Tablet(s) PO BID No Start Date 07/21/2015 Inactive Mobic 15 mg tablet RxNorm: 074238 Tablet(s) PO daily No Start Date 05/19/2015 Inactive Norvasc 5 mg tablet RxNorm: 974799 1 Tablet(s) PO daily No Start Date 09/16/2015 Inactive Zofran 4 mg tablet RxNorm: 068613 1 Tablet(s) PO daily as needed No Start Date 05/19/2015 Inactive Tamiflu 75 mg capsule RxNorm: 014589 1 Capsule(s) PO BID No Start Date 07/23/2017 Inactive tramadol 50 mg tablet RxNorm: 907803 1 Tablet(s) PO daily as needed No Start Date 12/16/2014 Inactive amiodarone 200 mg tablet RxNorm: 753772 1 Tablet(s) PO daily No Start Date 10/12/2015 Inactive Zofran ODT 4 mg disintegrating tablet RxNorm: 661628 1 Tablet(s) PO TID as needed No Start Date 05/02/2017 Inactive albuterol sulfate 2.5 mg/3 mL (0.083 %) solution for nebulization RxNorm: 333504 3 Milliliter(s) INH Q6 PRN No Start Date 09/20/2017 Inactive meclizine 25 mg tablet RxNorm: 699654 Tablet(s) PO as needed No Start Date 05/24/2016 Inactive Pradaxa 150 mg capsule RxNorm: 4048141 1 Capsule(s) PO daily No Start Date 12/15/2014 Inactive metoprolol tartrate 50 mg tablet RxNorm: 786542 1/2 Tablet(s) PO No Start Date 12/15/2014 Inactive Aricept 10 mg tablet RxNorm: 562806 Tablet(s) PO daily No Start Date 05/19/2015 Inactive Calmoseptine 0.44 %-20.6 % topical ointment RxNorm: 309797 1 Application TOP BID and as needed to sore on buttocks No Start Date 09/06/2016 Inactive Zithromax Z-Henrique 250 mg tablet RxNorm: 318392 1 Tablet(s) PO UD No Start Date 11/09/2015 Inactive zpack x 1 Medication Administered Medication Codes Instructions Start Date Status cyanocobalamin (vit B-12) 1,000 mcg/mL injection solution RxNorm: 706336 Milliliter 08/29/2018 Active cyanocobalamin (vit B-12) 1,000 mcg/mL injection solution RxNorm: 940307 Milliliter 08/15/2018 No longer Active Kenalog 40 mg/mL suspension for injection RxNorm: 3222788 Milliliter 08/15/2018 No longer Active cyanocobalamin (vit B-12) 1,000 mcg/mL injection solution RxNorm: 561985 Milliliter 08/01/2018 No longer Active cyanocobalamin (vit B-12) 1,000 mcg/mL injection solution RxNorm: 876510 Milliliter 07/19/2018 No longer Active cyanocobalamin (vit B-12) 1,000 mcg/mL injection solution RxNorm: 489982 Milliliter 07/04/2018 No longer Active cyanocobalamin (vit B-12) 1,000 mcg/mL injection solution RxNorm: 178347 Milliliter 06/20/2018 No longer Active cyanocobalamin (vit B-12) 1,000 mcg/mL injection solution RxNorm: 931504 Milliliter 06/06/2018 No longer Active cyanocobalamin (vit B-12) 1,000 mcg/mL injection solution RxNorm: 891303 Milliliter 05/24/2018 No longer Active cyanocobalamin (vit B-12) 1,000 mcg/mL injection solution RxNorm: 033676 Milliliter 05/09/2018 No longer Active cyanocobalamin (vit B-12) 1,000 mcg/mL injection solution RxNorm: 684884 Milliliter 04/26/2018 No longer Active cyanocobalamin (vit B-12) 1,000 mcg/mL injection solution RxNorm: 822085 Milliliter 04/12/2018 No longer Active cyanocobalamin (vit B-12) 1,000 mcg/mL injection solution RxNorm: 536367 Milliliter 03/30/2018 No longer Active cyanocobalamin (vit B-12) 1,000 mcg/mL injection solution RxNorm: 467083 Milliliter 03/16/2018 No longer Active cyanocobalamin (vit B-12) 1,000 mcg/mL injection solution RxNorm: 165452 Milliliter 03/02/2018 No longer Active cyanocobalamin (vit B-12) 1,000 mcg/mL injection solution RxNorm: 797014 Milliliter 02/08/2018 No longer Active cyanocobalamin (vit B-12) 1,000 mcg/mL injection solution RxNorm: 519407 Milliliter 01/24/2018 No longer Active cyanocobalamin (vit B-12) 1,000 mcg/mL injection solution RxNorm: 750970 Milliliter 01/10/2018 No longer Active cyanocobalamin (vit B-12) 1,000 mcg/mL injection solution RxNorm: 228846 Milliliter 12/27/2017 No longer Active cyanocobalamin (vit B-12) 1,000 mcg/mL injection solution RxNorm: 399056 1Milliliter 12/12/2017 No longer Active cyanocobalamin (vit B-12) 1,000 mcg/mL injection solution RxNorm: 967460 Milliliter 12/01/2017 No longer Active cyanocobalamin (vit B-12) 1,000 mcg/mL injection solution RxNorm: 363470 1Milliliter 11/17/2017 No longer Active cyanocobalamin (vit B-12) 1,000 mcg/mL injection solution RxNorm: 044832 1Milliliter 11/02/2017 No longer Active cyanocobalamin (vit B-12) 1,000 mcg/mL injection solution RxNorm: 716025 1Milliliter 10/20/2017 No longer Active cyanocobalamin (vit B-12) 1,000 mcg/mL injection solution RxNorm: 405282 Milliliter 10/06/2017 No longer Active cyanocobalamin (vit B-12) 1,000 mcg/mL injection solution RxNorm: 548627 Milliliter 09/21/2017 No longer Active Kenalog 40 mg/mL suspension for injection RxNorm: 0396344 Milliliter 09/15/2017 No longer Active cyanocobalamin (vit B-12) 1,000 mcg/mL injection solution RxNorm: 456006 Milliliter 09/07/2017 No longer Active cyanocobalamin (vit B-12) 1,000 mcg/mL injection solution RxNorm: 708084 Milliliter 08/24/2017 No longer Active cyanocobalamin (vit B-12) 1,000 mcg/mL injection solution RxNorm: 644359 Milliliter 07/06/2017 No longer Active Kenalog 40 mg/mL suspension for injection RxNorm: 6153286 1Milliliter 06/20/2017 No longer Active cyanocobalamin (vit B-12) 1,000 mcg/mL injection solution RxNorm: 680995 Milliliter 06/20/2017 No longer Active cyanocobalamin (vit B-12) 1,000 mcg/mL injection solution RxNorm: 557145 Milliliter 06/05/2017 No longer Active cyanocobalamin (vit B-12) 1,000 mcg/mL injection solution RxNorm: 018186 Milliliter 05/25/2017 No longer Active cyanocobalamin (vit B-12) 1,000 mcg/mL injection solution RxNorm: 438500 Milliliter 05/16/2017 No longer Active cyanocobalamin (vit B-12) 1,000 mcg/mL injection solution RxNorm: 743503 1Milliliter 05/01/2017 No longer Active cyanocobalamin (vit B-12) 1,000 mcg/mL injection solution RxNorm: 969754 Milliliter 04/18/2017 No longer Active cyanocobalamin (vit B-12) 1,000 mcg/mL injection solution RxNorm: 130078 Milliliter 04/06/2017 No longer Active cyanocobalamin (vit B-12) 1,000 mcg/mL injection solution RxNorm: 864134 Milliliter 03/22/2017 No longer Active cyanocobalamin (vit B-12) 1,000 mcg/mL injection solution RxNorm: 150005 Milliliter 03/09/2017 No longer Active cyanocobalamin (vit B-12) 1,000 mcg/mL injection solution RxNorm: 743036 Milliliter 02/23/2017 No longer Active cyanocobalamin (vit B-12) 1,000 mcg/mL injection solution RxNorm: 814087 Milliliter 02/09/2017 No longer Active cyanocobalamin (vit B-12) 1,000 mcg/mL injection solution RxNorm: 236944 Milliliter 01/23/2017 No longer Active cyanocobalamin (vit B-12) 1,000 mcg/mL injection solution RxNorm: 879570 Milliliter 01/10/2017 No longer Active cyanocobalamin (vit B-12) 1,000 mcg/mL injection solution RxNorm: 624166 1Milliliter 12/28/2016 No longer Active cyanocobalamin (vit B-12) 1,000 mcg/mL injection solution RxNorm: 017505 Milliliter 12/14/2016 No longer Active cyanocobalamin (vit B-12) 1,000 mcg/mL injection solution RxNorm: 498234 Milliliter 11/24/2016 No longer Active cyanocobalamin (vit B-12) 1,000 mcg/mL injection solution RxNorm: 600448 1Milliliter 11/07/2016 No longer Active cyanocobalamin (vit B-12) 1,000 mcg/mL injection solution RxNorm: 840493 Milliliter 10/24/2016 No longer Active cyanocobalamin (vit B-12) 1,000 mcg/mL injection solution RxNorm: 863384 1Milliliter 09/29/2016 No longer Active cyanocobalamin (vit B-12) 1,000 mcg/mL injection solution RxNorm: 906696 Milliliter 08/29/2016 No longer Active cyanocobalamin (vit B-12) 1,000 mcg/mL injection solution RxNorm: 896402 Milliliter 08/04/2016 No longer Active cyanocobalamin (vit B-12) 1,000 mcg/mL injection solution RxNorm: 196047 Milliliter 07/21/2016 No longer Active cyanocobalamin (vit B-12) 1,000 mcg/mL injection solution RxNorm: 255055 1Milliliter 07/05/2016 No longer Active cyanocobalamin (vit B-12) 1,000 mcg/mL injection solution RxNorm: 739361 1Milliliter 06/22/2016 No longer Active cyanocobalamin (vit B-12) 1,000 mcg/mL injection solution RxNorm: 253966 Milliliter 06/09/2016 No longer Active cyanocobalamin (vit B-12) 1,000 mcg/mL injection solution RxNorm: 415965 1Milliliter 05/25/2016 No longer Active cyanocobalamin (vit B-12) 1,000 mcg/mL injection solution RxNorm: 779845 Milliliter 05/10/2016 No longer Active cyanocobalamin (vit B-12) 1,000 mcg/mL injection solution RxNorm: 514334 Milliliter 04/26/2016 No longer Active cyanocobalamin (vit B-12) 1,000 mcg/mL injection solution RxNorm: 106048 Milliliter 04/11/2016 No longer Active cyanocobalamin (vit B-12) 1,000 mcg/mL injection solution RxNorm: 298935 Milliliter 03/31/2016 No longer Active cyanocobalamin (vit B-12) 1,000 mcg/mL injection solution RxNorm: 789897 1Milliliter 03/15/2016 No longer Active cyanocobalamin (vit B-12) 1,000 mcg/mL injection solution RxNorm: 685262 Milliliter 02/25/2016 No longer Active cyanocobalamin (vit B-12) 1,000 mcg/mL injection solution RxNorm: 955468 1Milliliter 02/02/2016 No longer Active cyanocobalamin (vit B-12) 1,000 mcg/mL injection solution RxNorm: 059424 Milliliter 01/18/2016 No longer Active cyanocobalamin (vit B-12) 1,000 mcg/mL injection solution RxNorm: 545862 Milliliter 12/29/2015 No longer Active cyanocobalamin (vit B-12) 1,000 mcg/mL injection solution RxNorm: 881197 Milliliter 12/08/2015 No longer Active cyanocobalamin (vit B-12) 1,000 mcg/mL injection solution RxNorm: 941356 Milliliter 11/23/2015 No longer Active cyanocobalamin (vit B-12) 1,000 mcg/mL injection solution RxNorm: 811096 Milliliter 11/11/2015 No longer Active cyanocobalamin (vit B-12) 1,000 mcg/mL injection solution RxNorm: 977883 1Milliliter 10/29/2015 No longer Active cyanocobalamin (vit B-12) 1,000 mcg/mL injection solution RxNorm: 458982 1Milliliter 10/12/2015 No longer Active cyanocobalamin (vit B-12) 1,000 mcg/mL injection solution RxNorm: 116855 1Milliliter 09/29/2015 No longer Active cyanocobalamin (vit B-12) 1,000 mcg/mL injection solution RxNorm: 169932 1Milliliter 09/17/2015 No longer Active cyanocobalamin (vit B-12) 1,000 mcg/mL injection solution RxNorm: 079720 1Milliliter 09/03/2015 No longer Active cyanocobalamin (vit B-12) 1,000 mcg/mL injection solution RxNorm: 256271 Milliliter 08/17/2015 No longer Active cyanocobalamin (vit B-12) 1,000 mcg/mL injection solution RxNorm: 814294 Milliliter 08/06/2015 No longer Active cyanocobalamin (vit B-12) 1,000 mcg/mL injection solution RxNorm: 844358 Milliliter 07/22/2015 No longer Active cyanocobalamin (vit B-12) 1,000 mcg/mL injection solution RxNorm: 197016 Milliliter 07/08/2015 No longer Active cyanocobalamin (vit B-12) 1,000 mcg/mL injection solution RxNorm: 043748 Milliliter 06/23/2015 No longer Active cyanocobalamin (vit B-12) 1,000 mcg/mL injection solution RxNorm: 887321 1Milliliter 06/08/2015 No longer Active cyanocobalamin (vit B-12) 1,000 mcg/mL injection solution RxNorm: 682033 Milliliter 05/27/2015 No longer Active cyanocobalamin (vit B-12) 1,000 mcg/mL injection solution RxNorm: 865795 1Milliliter 05/12/2015 No longer Active cyanocobalamin (vit B-12) 1,000 mcg/mL injection kit RxNorm: 518047 kit 04/30/2015 No longer Active cyanocobalamin (vit B-12) 1,000 mcg/mL injection solution RxNorm: 802040 Milliliter 04/16/2015 No longer Active cyanocobalamin (vit B-12) 1,000 mcg/mL injection solution RxNorm: 038458 Milliliter 04/02/2015 No longer Active cyanocobalamin (vit B-12) 1,000 mcg/mL injection solution RxNorm: 875154 Milliliter 03/18/2015 No longer Active cyanocobalamin (vit B-12) 1,000 mcg/mL injection solution RxNorm: 053243 Milliliter 03/03/2015 No longer Active cyanocobalamin (vit B-12) 1,000 mcg/mL injection solution RxNorm: 656467 Milliliter 02/18/2015 No longer Active cyanocobalamin (vit B-12) 1,000 mcg/mL injection solution RxNorm: 555470 Milliliter 02/04/2015 No longer Active cyanocobalamin (vit B-12) 1,000 mcg/mL injection solution RxNorm: 532059 Milliliter 01/22/2015 No longer Active cyanocobalamin (vit B-12) 1,000 mcg/mL injection solution RxNorm: 438653 Milliliter 01/08/2015 No longer Active cyanocobalamin (vit B-12) 1,000 mcg/mL injection solution RxNorm: 911753 Milliliter 12/25/2014 No longer Active cyanocobalamin (vit B-12) 1,000 mcg/mL injection solution RxNorm: 708444 Milliliter 12/10/2014 No longer Active cyanocobalamin (vit B-12) 1,000 mcg/mL injection solution RxNorm: 880744 Milliliter 11/26/2014 No longer Active cyanocobalamin (vit B-12) 1,000 mcg/mL injection kit RxNorm: 119292 Milliliter 11/12/2014 No longer Active cyanocobalamin (vit B-12) 1,000 mcg/mL injection solution RxNorm: 970896 Milliliter 10/28/2014 No longer Active Immunizations Vaccine [...] B12 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 ICD-9: 266.2 07/19/2018 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 ICD-9: 281.1 07/04/2018 Type 2 diabetes mellitus without complications ICD-10: E11.9 ICD-9: 250.00 05/03/2018 Essential (primary) hypertension ICD-10: I10 ICD-9: 401.9 05/03/2018 Encounter for immunization ICD-10: Z23 ICD-9: V03.82 [...] Reason For Visit Effective Dates Notes cough 08/15/2018 cough 05/03/2018 She takes claritin [...] (3rd IS) 3.20 uIU/mL 02/26/2018 Free T4 [id number] FREE T4 0.99 ng/dL 02/26/2018 Cbc With [...] 28.5 pg 02/26/2018 Cbc With Differential Ord2 [place]% 10.3 % 02/26/2018 Cbc With Differential Ord2 [...] 1.80 K/ul 02/26/2018 Cbc With Differential Ord2 [place] ABS# 0.7 K/ul 02/26/2018 Cbc With Differential Ord2 Eos ABS# 0.2 K/ul 02/26/2018 Cbc With Differential Ord2 Baso ABS# 0.0 K/ul 02/26/2018 B12 Xua213 B12 889.00 pg/ml 02/26/2018 Digoxin Ord9 DIGOXIN 0.7 NG/ML 11/23/2017 Comp Metabolic Gky837 NA 142 mEq/L 11/23/2017 Comp Metabolic Rvv848 K 4.9 mEq/L 11/23/2017 Comp Metabolic Rnu757 CL 112 mEq/L 11/23/2017 Comp Metabolic Gqx884 CO2 18.0 mEq/L 11/23/2017 Comp Metabolic Gmx341 ANION GAP 17 11/23/2017 Comp Metabolic Jlv326 GLUCOSE 123 mg/dL 11/23/2017 Comp Metabolic Gfz901 Creat 1.0 mg/dL 11/23/2017 Comp Metabolic Gdy705 eGFR 59 ml/min/1.73m2 11/23/2017 Comp Metabolic Lqm823 BUN 24 mg/dL 11/23/2017 Comp Metabolic Cla120 B/C Ratio 25.0 Ratio 11/23/2017 Comp Metabolic Rgr410 CALCIUM 9.4 mg/dL 11/23/2017 Comp Metabolic Kss941 ALK PHOS 56 U/L 11/23/2017 Comp Metabolic Klh004 AST(SGOT) 17 U/L 11/23/2017 Comp Metabolic Usp311 ALT(SGPT) 16 U/L 11/23/2017 Comp Metabolic Xhs279 BILI T 0.7 mg/dL 11/23/2017 Comp Metabolic Fms980 ALBUMIN 3.8 g/dL 11/23/2017 Comp Metabolic Edn250 TPRO 6.2 g/dL 11/23/2017 Comp Metabolic Lcr174 GLOB 2.4 g/dL 11/23/2017 Comp Metabolic Lmf692 A/G Ratio 1.6 Ratio 11/23/2017 Comp Metabolic Spf762 Osmo 289 mOsmo 11/23/2017 Free T4 Zrq777 FREE T4 1.04 ng/dL 11/23/2017 %Hba1C Ubq558 % HbA1c 07498- 6 6.4 % 11/23/2017 %Hba1C Psi930 Gluc Ave 137 mg/dL 11/23/2017 Lipid Ord30 CHOL 179 mg/dL 11/23/2017 Lipid Ord30 HDL 51.0 mg/dl 11/23/2017 Lipid Ord30 TRIG 134 mg/dL 11/23/2017 Lipid Ord30 LDL 101 mg/dL 11/23/2017 Lipid Ord30 C/HDL 3.5 Ratio 11/23/2017 Tsh Ord6 TSH (3rd IS) 1.00 uIU/mL 11/23/2017 Microalbumin Vki058 MicroAlb <0.7 mg/dL 11/23/2017 Comp Metabolic Zen815 NA 141 mEq/L 01/23/2017 Comp Metabolic Pzg232 K 4.5 mEq/L 01/23/2017 Comp Metabolic Odp697 CL 107 mEq/L 01/23/2017 Comp Metabolic Xax925 CO2 21.0 mEq/L 01/23/2017 Comp Metabolic Qum433 ANION GAP 18 01/23/2017 Comp Metabolic Oxp744 GLUCOSE 138 mg/dL 01/23/2017 Comp Metabolic Lbv483 Creat 1.0 mg/dL 01/23/2017 Comp Metabolic Amo741 eGFR 56 ml/min/1.73m2 01/23/2017 Comp Metabolic Nir411 BUN 26 mg/dL 01/23/2017 Comp Metabolic Ffb097 B/C Ratio 25.7 Ratio 01/23/2017 Comp Metabolic Vai702 CALCIUM 9.0 mg/dL 01/23/2017 Comp Metabolic Qnd005 ALK PHOS 37 U/L 01/23/2017 Comp Metabolic Rkc711 AST(SGOT) 20 U/L 01/23/2017 Comp Metabolic Mer590 ALT(SGPT) 25 U/L 01/23/2017 Comp Metabolic Ops619 BILI T 0.9 mg/dL 01/23/2017 Comp Metabolic Wbs974 ALBUMIN 3.8 g/dL 01/23/2017 Comp Metabolic Ker630 TPRO 6.5 g/dL 01/23/2017 Comp Metabolic Keu347 GLOB 2.7 g/dL 01/23/2017 Comp Metabolic Alw861 A/G Ratio 1.4 Ratio 01/23/2017 Comp Metabolic Swq602 Osmo 288 mOsmo 01/23/2017 Free T4 Ivl572 FREE T4 1.05 ng/dL 01/23/2017 %Hba1C Aet937 % HbA1c 28462- 6 6.1 % 01/23/2017 %Hba1C Ixy034 Gluc Ave 128 mg/dL 01/23/2017 Tsh Ord6 hTSH II 1.68 uIU/mL 01/23/2017 Culture Urine [id number] URINE CULTURE SEE NOTES 11/10/2016 Culture Urine [id number] Continued Results 11/10/2016 Urine Culture Ucult Complete [...] Ord15 CALCIUM 9.3 mg/dL 09/29/2016 Free T4 Ilw893 FREE T4 0.99 ng/dL 09/07/2016 Cbc With [...] 30.0 pg 09/07/2016 Cbc With Differential Ord2 [place]% 9.8 % 09/07/2016 Cbc With Differential Ord2 [...] 1.75 K/ul 09/07/2016 Cbc With Differential Ord2 [place] ABS# 0.6 K/ul 09/07/2016 Cbc With Differential Ord2 Eos ABS# 0.1 K/ul 09/07/2016 Cbc With Differential Ord2 Baso ABS# 0.0 K/ul 09/07/2016 Tsh Ord6 hTSH II 1.41 uIU/mL 09/07/2016 Culture Urine [id number] URINE CULTURE SEE NOTES 06/27/2016 Lipid Ord30 CHOL 196 mg/dL 06/22/2016 Lipid Ord30 HDL 63.0 mg/dl 06/22/2016 Lipid Ord30 TRIG 154 mg/dL 06/22/2016 Lipid Ord30 LDL 102 mg/dL 06/22/2016 Lipid Ord30 C/HDL 3.1 Ratio 06/22/2016 Hepatic Gbw910 ALBUMIN 4.2 g/dL 06/22/2016 Hepatic Fck154 TPRO 7.0 g/dL 06/22/2016 Hepatic Hga845 GLOB 2.8 g/dL 06/22/2016 Hepatic Bdw859 A/G Ratio 1.5 Ratio 06/22/2016 Hepatic Iqa445 ALK PHOS 54 U/L 06/22/2016 Hepatic Fhb307 ALT(SGPT) 30 U/L 06/22/2016 Hepatic Yym734 AST(SGOT) 24 U/L 06/22/2016 Hepatic Bcy145 BILI T 1.1 mg/dL 06/22/2016 Hepatic Mlq461 BILI D 0.2 mg/dL 06/22/2016 Hepatic Qjy826 BILI I 0.9 mg/dL 06/22/2016 Comp Metabolic Cuj821 NA 139 mEq/L 06/14/2016 Comp Metabolic Pyi514 K 4.6 mEq/L 06/14/2016 Comp Metabolic Ach521 CL 108 mEq/L 06/14/2016 Comp Metabolic Osr597 CO2 22.0 mEq/L 06/14/2016 Comp Metabolic Ona333 ANION GAP 14 06/14/2016 Comp Metabolic Pei499 GLUCOSE 114 mg/dL 06/14/2016 Comp Metabolic Krq521 Creat 1.2 mg/dL 06/14/2016 Comp Metabolic Hmt451 eGFR 48 ml/min/1.73m2 06/14/2016 Comp Metabolic Dfj086 BUN 24 mg/dL 06/14/2016 Comp Metabolic Bnu258 B/C Ratio 20.9 Ratio 06/14/2016 Comp Metabolic Evk800 CALCIUM 9.9 mg/dL 06/14/2016 Comp Metabolic Cun639 ALK PHOS 47 U/L 06/14/2016 Comp Metabolic Ozs496 AST(SGOT) 28 U/L 06/14/2016 Comp Metabolic Aje787 ALT(SGPT) 32 U/L 06/14/2016 Comp Metabolic Fps216 BILI T 0.9 mg/dL 06/14/2016 Comp Metabolic Mns536 ALBUMIN 4.1 g/dL 06/14/2016 Comp Metabolic Umx078 TPRO 6.9 g/dL 06/14/2016 Comp Metabolic Lhj024 GLOB 2.8 g/dL 06/14/2016 Comp Metabolic Npv499 A/G Ratio 1.5 Ratio 06/14/2016 Comp Metabolic Oly357 Osmo 282 mOsmo 06/14/2016 Tsh Ord6 hTSH II 1.26 uIU/mL 06/14/2016 Free T4 Chi522 FREE T4 1.09 ng/dL 06/14/2016 Tsh Ord6 hTSH II 0.28 uIU/mL 02/02/2016 Digoxin Ord9 DIGOXIN 0.7 NG/ML 02/02/2016 Free T4 Nbc910 FREE T4 1.23 ng/dL 02/02/2016 Hepatic Ezq869 ALBUMIN 4.0 g/dL 02/02/2016 Hepatic Bnz322 TPRO 7.0 g/dL 02/02/2016 Hepatic Eai556 GLOB 3.0 g/dL 02/02/2016 Hepatic Oob705 A/G Ratio 1.3 Ratio 02/02/2016 Hepatic Nit219 ALK PHOS 57 U/L 02/02/2016 Hepatic Awr965 ALT(SGPT) 62 U/L 02/02/2016 Hepatic Qov056 AST(SGOT) 54 U/L 02/02/2016 Hepatic Jhk596 BILI T 0.8 mg/dL 02/02/2016 Hepatic Nmr282 BILI D 0.2 mg/dL 02/02/2016 Hepatic Uya195 BILI I 0.6 mg/dL 02/02/2016 Urine Culture Ucult Preliminary No Growth Day 1 11/25/2015 Urine Culture Ucult Complete No Growth Day 2 11/25/2015 Hepatic Rma405 ALBUMIN 3.9 g/dL 11/11/2015 Hepatic Jju894 TPRO 7.0 g/dL 11/11/2015 Hepatic Jlg155 GLOB 3.1 g/dL 11/11/2015 Hepatic Vjx168 A/G Ratio 1.3 Ratio 11/11/2015 Hepatic Tqi435 ALK PHOS 63 U/L 11/11/2015 Hepatic Gtv149 ALT(SGPT) 107 U/L 11/11/2015 Hepatic Xfu533 AST(SGOT) 101 U/L 11/11/2015 Hepatic Amc279 BILI T 0.6 mg/dL 11/11/2015 Hepatic Yjl173 BILI D 0.1 mg/dL 11/11/2015 Hepatic Mwz789 BILI I 0.5 mg/dL 11/11/2015 Comp Metabolic Zvw828 NA 138 mEq/L 10/29/2015 Comp Metabolic Gxt721 K 5.0 mEq/L 10/29/2015 Comp Metabolic Sop847 CL 105 mEq/L 10/29/2015 Comp Metabolic Qqs867 CO2 23.0 mEq/L 10/29/2015 Comp Metabolic Eay334 ANION GAP 15 10/29/2015 Comp Metabolic Rmk635 GLUCOSE 105 mg/dL 10/29/2015 Comp Metabolic Lfr395 Creat 1.0 mg/dL 10/29/2015 Comp Metabolic Tov213 eGFR 55 ml/min/1.73m2 10/29/2015 Comp Metabolic Bnw766 BUN 20 mg/dL 10/29/2015 Comp Metabolic Evw649 B/C Ratio 19.4 Ratio 10/29/2015 Comp Metabolic Tfm228 CALCIUM 8.8 mg/dL 10/29/2015 Comp Metabolic Nhx392 ALK PHOS 56 U/L 10/29/2015 Comp Metabolic Hxb116 AST(SGOT) 66 U/L 10/29/2015 Comp Metabolic Ljj177 ALT(SGPT) 78 U/L 10/29/2015 Comp Metabolic Oxy349 BILI T 0.7 mg/dL 10/29/2015 Comp Metabolic Xwy194 ALBUMIN 3.6 g/dL 10/29/2015 Comp Metabolic Med286 TPRO 6.6 g/dL 10/29/2015 Comp Metabolic Chi893 GLOB 3.0 g/dL 10/29/2015 Comp Metabolic Smr422 A/G Ratio 1.2 Ratio 10/29/2015 Comp Metabolic Yee374 Osmo 279 mOsmo 10/29/2015 Comp Metabolic Yvy283 NA 136 mEq/L 09/03/2015 Comp Metabolic Qcv496 K 4.4 mEq/L 09/03/2015 Comp Metabolic Bpd596 CL 103 mEq/L 09/03/2015 Comp Metabolic Bsm734 CO2 24.0 mEq/L 09/03/2015 Comp Metabolic Vwz642 ANION GAP 13 09/03/2015 Comp Metabolic Ukw386 GLUCOSE 87 mg/dL 09/03/2015 Comp Metabolic Obv435 Creat 1.1 mg/dL 09/03/2015 Comp Metabolic Zjk144 eGFR 53 ml/min/1.73m2 09/03/2015 Comp Metabolic Ale796 BUN 17 mg/dL 09/03/2015 Comp Metabolic Syd600 B/C Ratio 16.2 Ratio 09/03/2015 Comp Metabolic Uul523 CALCIUM 9.0 mg/dL 09/03/2015 Comp Metabolic Tmu117 ALK PHOS 55 U/L 09/03/2015 Comp Metabolic Gjk198 AST(SGOT) 83 U/L 09/03/2015 Comp Metabolic Kie220 ALT(SGPT) 126 U/L 09/03/2015 Comp Metabolic Mzh175 BILI T 0.9 mg/dL 09/03/2015 Comp Metabolic Pjr762 ALBUMIN 3.9 g/dL 09/03/2015 Comp Metabolic Oko944 TPRO 6.8 g/dL 09/03/2015 Comp Metabolic Zln829 GLOB 2.9 g/dL 09/03/2015 Comp Metabolic Ftc895 A/G Ratio 1.4 Ratio 09/03/2015 Comp Metabolic Wps849 Osmo 273 mOsmo 09/03/2015 Total T3 Ord42 TT3 0.6 ng/ml 07/09/2015 Tsh Ord6 hTSH II 1.62 uIU/mL 07/09/2015 Total T3 Ord42 TT3 0.5 ng/ml 04/02/2015 Free T4 Aeq728 FREE T4 1.23 ng/dL 04/02/2015 Tsh Ord6 hTSH II 5.95 uIU/mL 04/02/2015 Review of Systems System Result Effective Dates Constitutional recent illness 08/15/2018 Constitutional No chills [...] Procedure Codes Date THER/PROPH/DIAG INJ SC/IM CPT-4: 20438 08/29/2018 THER/PROPH/DIAG INJ SC/IM CPT-4: 85127 08/15/2018 TRIAMCINOLONE ACET INJ NOS CPT-4: J3301 08/15/2018 THER/PROPH/DIAG INJ SC/IM CPT-4: 42398 08/01/2018 VITAMIN B12 INJECTION CPT- 4: J3420 08/01/2018 THER/PROPH/DIAG INJ SC/IM CPT-4: 19239 07/19/2018 THER/PROPH/DIAG INJ SC/IM CPT-4: 41447 07/04/2018 THER/PROPH/DIAG INJ SC/IM CPT-4: 59269 06/20/2018 THER/PROPH/DIAG INJ SC/IM CPT-4: 37892 06/06/2018 VITAMIN B12 INJECTION CPT- 4: J3420 06/06/2018 THER/PROPH/DIAG INJ SC/IM CPT-4: 43892 05/24/2018 THER/PROPH/DIAG INJ SC/IM CPT-4: 73109 05/09/2018 THER/PROPH/DIAG INJ SC/IM CPT-4: 89081 04/26/2018 VITAMIN B12 INJECTION CPT- 4: J3420 04/26/2018 THER/PROPH/DIAG INJ SC/IM CPT-4: 36839 04/12/2018 THER/PROPH/DIAG INJ SC/IM CPT-4: 83779 03/30/2018 THER/PROPH/DIAG INJ SC/IM CPT-4: 70086 03/16/2018 VITAMIN B12 INJECTION CPT- 4: J3420 03/16/2018 ADMIN INFLUENZA VIRUS VAC CPT-4: G0008 03/16/2018 FLU VACC PRSV FREE INC ANTIG Formatting Model/CDA Sections, Assigned to/Nga Ojeda CPT-4: 13607Bqsfyar 03/16/2018 THER/PROPH/DIAG INJ SC/IM CPT-4: 46912 03/02/2018 THER/PROPH/DIAG INJ SC/IM CPT-4: 72117 02/08/2018 THER/PROPH/DIAG INJ SC/IM CPT-4: 62515 01/24/2018 THER/PROPH/DIAG INJ SC/IM CPT-4: 98690 01/10/2018 THER/PROPH/DIAG INJ SC/IM CPT-4: 98961 12/27/2017 VITAMIN B12 INJECTION CPT- 4: J3420 12/27/2017 THER/PROPH/DIAG INJ SC/IM CPT-4: 17762 12/12/2017 THER/PROPH/DIAG INJ SC/IM CPT-4: 06937 12/01/2017 VITAMIN B12 INJECTION CPT- 4: J3420 12/01/2017 THER/PROPH/DIAG INJ SC/IM CPT-4: 49166 11/17/2017 THER/PROPH/DIAG INJ SC/IM CPT-4: 40532 11/02/2017 THER/PROPH/DIAG INJ SC/IM CPT-4: 33650 10/20/2017 THER/PROPH/DIAG INJ SC/IM CPT-4: 04551 10/06/2017 THER/PROPH/DIAG INJ SC/IM CPT-4: 89066 09/21/2017 TRIAMCINOLONE ACET INJ NOS CPT-4: J3301 09/15/2017 THER/PROPH/DIAG INJ SC/IM CPT-4: 97410 09/07/2017 THER/PROPH/DIAG INJ SC/IM CPT-4: 67446 08/24/2017 THER/PROPH/DIAG INJ SC/IM CPT-4: 08550 07/06/2017 THER/PROPH/DIAG INJ SC/IM CPT-4: 52971 06/20/2017 TRIAMCINOLONE ACET INJ NOS CPT-4: J3301 06/20/2017 PPPS, SUBSEQ VISIT CPT- 4: G0439 06/05/2017 THER/PROPH/DIAG INJ SC/IM CPT-4: 62630 06/05/2017 THER/PROPH/DIAG INJ SC/IM CPT-4: 02132 05/25/2017 VITAMIN B12 INJECTION CPT- 4: J3420 05/25/2017 THER/PROPH/DIAG INJ SC/IM CPT-4: 62008 05/16/2017 THER/PROPH/DIAG INJ SC/IM CPT-4: 66964 05/01/2017 THER/PROPH/DIAG INJ SC/IM CPT-4: 96555 04/18/2017 THER/PROPH/DIAG INJ SC/IM CPT-4: 32455 04/06/2017 ADMIN INFLUENZA VIRUS VAC CPT-4: G0008 03/22/2017 FLU VACC PRSV FREE INC ANTIG CPT-4: 32082 03/22/2017 THER/PROPH/DIAG INJ SC/IM CPT-4: 50026 03/09/2017 THER/PROPH/DIAG INJ SC/IM CPT-4: 45400 02/23/2017 THER/PROPH/DIAG INJ SC/IM CPT-4: 21007 02/09/2017 THER/PROPH/DIAG INJ SC/IM CPT-4: 42217 01/23/2017 THER/PROPH/DIAG INJ SC/IM CPT-4: 23585 01/10/2017 THER/PROPH/DIAG INJ SC/IM CPT-4: 34098 12/28/2016 THER/PROPH/DIAG INJ SC/IM CPT-4: 31272 12/14/2016 THER/PROPH/DIAG INJ SC/IM CPT-4: 02803 11/24/2016 URINALYSIS NONAUTO W/O SCOPE CPT-4: 10708 11/07/2016 THER/PROPH/DIAG INJ SC/IM CPT-4: 38319 11/07/2016 THER/PROPH/DIAG INJ SC/IM CPT-4: 93861 10/24/2016 THER/PROPH/DIAG INJ SC/IM CPT-4: 89534 09/29/2016 THER/PROPH/DIAG INJ SC/IM CPT-4: 17607 08/29/2016 THER/PROPH/DIAG INJ SC/IM CPT-4: 43431 08/04/2016 THER/PROPH/DIAG INJ SC/IM CPT-4: 22129 07/21/2016 THER/PROPH/DIAG INJ SC/IM CPT-4: 90764 07/05/2016 THER/PROPH/DIAG INJ SC/IM CPT-4: 09610 06/22/2016 URINALYSIS NONAUTO W/O SCOPE CPT-4: 96302 06/22/2016 THER/PROPH/DIAG INJ SC/IM CPT-4: 78282 06/09/2016 PPPS, SUBSEQ VISIT CPT- 4: G0439 05/30/2016 ADMIN PNEUMOCOCCAL VACCINE SNOMED CT: [id number] CPT-4: G0009 05/25/2016 Pneumococcal Polysaccharide Vaccine, 23-Valent, Ad CPT-4: 86194 05/25/2016 THER/PROPH/DIAG INJ SC/IM CPT-4: 72755 05/25/2016 THER/PROPH/DIAG INJ SC/IM CPT-4: 52188 05/10/2016 TRIAMCINOLONE ACET INJ NOS CPT-4: J3301 04/26/2016 VITAMIN B12 INJECTION CPT- 4: J3420 04/26/2016 THER/PROPH/DIAG INJ SC/IM CPT-4: 12578 04/11/2016 THER/PROPH/DIAG INJ SC/IM CPT-4: 11393 03/31/2016 ADMIN INFLUENZA VIRUS VAC CPT-4: G0008 03/15/2016 FLU VACC 4 STEPHANIE [address] YRS PLUS IM SNOMED CT: [id number] CPT-4: 66346 03/15/2016 THER/PROPH/DIAG INJ SC/IM CPT-4: 96382 02/25/2016 THER/PROPH/DIAG INJ SC/IM CPT-4: 25104 02/02/2016 THER/PROPH/DIAG INJ SC/IM CPT-4: 86669 01/18/2016 VITAMIN B12 INJECTION CPT- 4: J3420 12/29/2015 THER/PROPH/DIAG INJ SC/IM CPT-4: 76266 12/29/2015 THER/PROPH/DIAG INJ SC/IM CPT-4: 82109 12/08/2015 THER/PROPH/DIAG INJ SC/IM CPT-4: 34877 11/23/2015 URINALYSIS NONAUTO W/O SCOPE CPT-4: 64505 11/23/2015 THER/PROPH/DIAG INJ SC/IM CPT-4: 54406 11/11/2015 THER/PROPH/DIAG INJ SC/IM CPT-4: 41603 10/29/2015 THER/PROPH/DIAG INJ SC/IM CPT-4: 04280 10/12/2015 VITAMIN B12 INJECTION CPT- 4: J3420 10/12/2015 THER/PROPH/DIAG INJ SC/IM CPT-4: 60064 09/29/2015 THER/PROPH/DIAG INJ SC/IM CPT-4: 18675 09/17/2015 THER/PROPH/DIAG INJ SC/IM CPT-4: 17833 09/03/2015 THER/PROPH/DIAG INJ SC/IM CPT-4: 67220 08/17/2015 THER/PROPH/DIAG INJ SC/IM CPT-4: 52845 08/06/2015 THER/PROPH/DIAG INJ SC/IM CPT-4: 45668 07/22/2015 THER/PROPH/DIAG INJ SC/IM CPT-4: 73399 07/08/2015 THER/PROPH/DIAG INJ SC/IM CPT-4: 71276 06/23/2015 THER/PROPH/DIAG INJ SC/IM CPT-4: 77903 06/08/2015 THER/PROPH/DIAG INJ SC/IM CPT-4: 54766 05/27/2015 DESTRUCT PREMALG LESION CPT-4: 85333 05/19/2015 DESTRUCT PREMALG LES 2-14 CPT-4: 55175 05/19/2015 THER/PROPH/DIAG INJ SC/IM CPT-4: 52956 05/12/2015 VITAMIN B12 INJECTION CPT- 4: J3420 05/12/2015 THER/PROPH/DIAG INJ SC/IM CPT-4: 09510 04/30/2015 VITAMIN B12 INJECTION CPT- 4: J3420 04/30/2015 THER/PROPH/DIAG INJ SC/IM CPT-4: 25822 04/16/2015 THER/PROPH/DIAG INJ SC/IM CPT-4: 99118 04/02/2015 VITAMIN B12 INJECTION CPT- 4: J3420 04/02/2015 THER/PROPH/DIAG INJ SC/IM CPT-4: 30851 03/18/2015 THER/PROPH/DIAG INJ SC/IM CPT-4: 67980 03/03/2015 THER/PROPH/DIAG INJ SC/IM CPT-4: 59446 02/18/2015 THER/PROPH/DIAG INJ SC/IM CPT-4: 21683 02/04/2015 VITAMIN B12 INJECTION CPT- 4: J3420 02/04/2015 THER/PROPH/DIAG INJ SC/IM CPT-4: 56637 01/22/2015 THER/PROPH/DIAG INJ SC/IM CPT-4: 34156 01/08/2015 VITAMIN B12 INJECTION CPT- 4: J3420 01/08/2015 THER/PROPH/DIAG INJ SC/IM CPT-4: 32206 12/25/2014 VITAMIN B12 INJECTION CPT- 4: J3420 12/25/2014 THER/PROPH/DIAG INJ SC/IM CPT-4: 24699 12/10/2014 VITAMIN B12 INJECTION CPT- 4: J3420 12/10/2014 THER/PROPH/DIAG INJ SC/IM CPT-4: 47252 11/26/2014 VITAMIN B12 INJECTION CPT- 4: J3420 11/26/2014 THER/PROPH/DIAG INJ SC/IM CPT-4: 13417 11/12/2014 VITAMIN B12 INJECTION CPT- 4: J3420 11/12/2014 THER/PROPH/DIAG INJ SC/IM CPT-4: 61086 10/28/2014 Vital Signs Date Vital 08/15/2018 Blood Pressure 1: 142/76 Code: 8480-6 BMI: 27.4 Code: 03210-7 Heart Rate 1: 74 bpm Height: 5'6" SpO2: 95% Temperature: 36.7 (C) / 98.1 (F) Weight: 170 lbs 05/03/2018 Blood Pressure 1: 140/70 Code: 8480-6 BMI: 26.0 Code: 42638-7 Heart Rate 1: 70 bpm Height: 5'6" SpO2: 94% Weight: 161 lbs 04/26/2018 Height: 5'6" 02/26/2018 Blood Pressure 1: 130/72 Code: 8480-6 BMI: 27.9 Code: 17371-8 Heart Rate 1: 72 bpm Height: 5'6" SpO2: 93% Weight: 173 lbs 12/12/2017 Blood Pressure 1: 126/74 Code: 8480-6 BMI: 27.4 Code: 53944-2 Heart Rate 1: 83 bpm Height: 5'6" SpO2: 98% Weight: 170 lbs 12/04/2017 Blood Pressure 1: 104/68 Code: 8480-6 BMI: 28.2 Code: 99300-5 Heart Rate 1: 85 bpm Height: 5'6" SpO2: 95% Weight: 175 lbs 11/20/2017 Blood Pressure 1: 130/68 Code: 8480-6 BMI: 28.4 Code: 36967-9 Heart Rate 1: 80 bpm Height: 5'6" SpO2: 99% Weight: 176 lbs 11/02/2017 Height: 5'6" 09/15/2017 Blood Pressure 1: 134/74 Code: 8480-6 BMI: 28.4 Code: 59726-4 Heart Rate 1: 88 bpm Height: 5'6" SpO2: 98% Weight: 176 lbs 09/07/2017 Blood Pressure 1: 124/64 Code: 8480-6 Heart Rate 1: 90 bpm Height: SpO2: 97% Weight: 08/30/2017 Blood Pressure 1: 140/76 Code: 8480-6 BMI: 28.4 Code: 47122-1 Heart Rate 1: 90 bpm Height: 5'6" SpO2: 94% Weight: 176 lbs 07/06/2017 Blood Pressure 1: 132/66 Code: 8480-6 BMI: 29.4 Code: 49595-6 Heart Rate 1: 85 bpm Height: 5'6" SpO2: 97% Weight: 182 lbs 06/20/2017 Blood Pressure 1: 134/86 Code: 8480-6 Heart Rate 1: 90 bpm Height: SpO2: 98% Weight: 06/05/2017 BMI: 29.1 Code: 51556-3 Height: 5'6" Weight: 180 lbs 05/25/2017 Blood Pressure 1: 126/76 Code: 8480-6 BMI: 29.1 Code: 72090-4 Heart Rate 1: 77 bpm Height: 5'6" SpO2: 97% Weight: 180 lbs 03/23/2017 Blood Pressure 1: 142/84 Code: 8480-6 BMI: 29.1 Code: 89278-4 Heart Rate 1: 91 bpm Height: 5'6" SpO2: 97% Weight: 180 lbs 01/23/2017 Blood Pressure 1: 150/90 Code: 8480-6 BMI: 29.9 Code: 94766-8 Heart Rate 1: 81 bpm Height: 5'6" SpO2: 97% Weight: 185 lbs 11/02/2016 Blood Pressure 1: 148/78 Code: 8480-6 BMI: 29.7 Code: 31408-1 Heart Rate 1: 87 bpm Height: 5'6" SpO2: 97% Weight: 184 lbs 09/29/2016 Blood Pressure 1: 128/78 Code: 8480-6 BMI: 29.7 Code: 09159-1 Heart Rate 1: 78 bpm Height: 5'6" SpO2: 98% Weight: 184 lbs 07/26/2016 Blood Pressure 1: 138/72 Code: 8480-6 BMI: 30.0 Code: 99447-4 Heart Rate 1: 85 bpm Height: 5'6" SpO2: 97% Weight: 186 lbs 05/30/2016 Blood Pressure 1: 132/76 Code: 8480-6 BMI: 30.0 Code: 68298-7 Heart Rate 1: 80 bpm Height: 5'6" SpO2: 98% Waist Measure (cm): 99 cm Weight: 186 lbs 05/25/2016 Blood Pressure 1: 132/76 Code: 8480-6 BMI: 30.0 Code: 03128-6 Heart Rate 1: 80 bpm Height: 5'6" SpO2: 96% Weight: 186 lbs 02/25/2016 Blood Pressure 1: 110/64 Code: 8480-6 Heart Rate 1: 82 bpm Height: SpO2: 96% Weight: 01/25/2016 Blood Pressure 1: 118/70 Code: 8480-6 BMI: 30.0 Code: 75065-1 Heart Rate 1: 78 bpm Height: 5'6" SpO2: 97% Weight: 186 lbs 11/11/2015 Blood Pressure 1: 128/82 Code: 8480-6 BMI: 29.2 Code: 54992-9 Heart Rate 1: 86 bpm Height: 5'6" SpO2: 96% Temperature: 36.4 (C) / 97.6 (F) Weight: 181 lbs 10/12/2015 Blood Pressure 1: 118/70 Code: 8480-6 BMI: 29.2 Code: 78647-8 Heart Rate 1: 81 bpm Height: 5'6" SpO2: 95% Weight: 181 lbs 09/03/2015 Blood Pressure 1: 138/78 Code: 8480-6 BMI: 29.9 Code: 58666-6 Heart Rate 1: 88 bpm Height: 5'6" SpO2: 97% Weight: 185 lbs 05/19/2015 Blood Pressure 1: 146/78 Code: 8480-6 BMI: 30.0 Code: 45965-9 Heart Rate 1: 66 bpm Height: 5'6" SpO2: 97% Weight: 186 lbs 05/12/2015 Blood Pressure 1: 120/70 Code: 8480-6 BMI: 29.9 Code: 35125-7 Heart Rate 1: 89 bpm Height: 5'6" SpO2: 95% Weight: 185 lbs 01/13/2015 Blood Pressure 1: 140/90 Code: 8480-6 BMI: 30.3 Code: 08356-2 Heart Rate 1: 84 bpm Height: 5'6" SpO2: 95% Weight: 188 lbs 12/16/2014 Blood Pressure 1: 140/82 Code: 8480-6 BMI: 29.5 Code: 70470-3 Heart Rate 1: 86 bpm Height: 5'6" Weight: 183 lbs Functional Status No Functional Status data History of Present Illness Symptom Name Status Result Effective Date Notes Location in the lung 08/15/2018 None Quality [...] Codes Date EST. PATIENT, LEVEL IV Diagnosis: Acute bronchitis due to other specified organisms[ICD10: J20.8] Diagnosis: Cough[ICD10: R05] Diagnosis: 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 factor deficiency[ICD10: D51.0] Brianna Vega MD, [facility] CPT-4: 45787 08/15/2018 [id number]) [id number] EST. PATIENT, LEVEL IV Diagnosis: Essential (primary) hypertension[ICD10: I10] Diagnosis: Type 2 diabetes mellitus without complications[ICD10: E11.9] Yarely Vega MD, [facility] CPT-4: 84745 05/03/2018 [phone] [id number] EST. PATIENT, LEVEL III Diagnosis: Pain in left shoulder[ICD10: M25.512] Diagnosis: Pain in right shoulder[ICD10: M25.511] [facility] CPT-4: 70747 02/26/2018 ([phone] [id number] EST. PATIENT, LEVEL III Diagnosis: Nausea[ICD10: R11.0] Diagnosis: Cough[ICD10: R05] Diagnosis: 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 factor deficiency[ICD10: D51.0] Janet Vega MD, [facility] CPT-4: 66318 12/12/2017 [id number]) [id number] EST. PATIENT, LEVEL IV Diagnosis: Acute bronchitis due to Hemophilus influenzae[ICD10: J20.1] Diagnosis: Cough[ICD10: R05] Yarely Vega MD, [facility] CPT-4: 80740 12/04/2017 ([id number]) [id number] EST. PATIENT, LEVEL IV Diagnosis: Essential (primary) hypertension[ICD10: I10] Diagnosis: Cough[ICD10: R05] Diagnosis: Chronic atrial fibrillation[ICD10: I48.2] Yarely Vega MD, [facility] CPT-4: 37885 11/20/2017 ([id number]) 53352 EST. PATIENT, LEVEL III Diagnosis: Cough[ICD10: R05] Diagnosis: Acute upper respiratory infection, unspecified[ICD10: J06.9] Janet Vega MD, [facility] CPT-4: 02165 09/15/2017 [id number] EST. PATIENT, LEVEL III Diagnosis: Laceration without foreign body of right forearm, initial encounter[ICD10: S51.811A] Diagnosis: Other vitamin B12 deficiency anemias[ICD10: D51.8] Brianna Vega MD, [facility] CPT-4: 82975 09/07/2017 ([id number]) 32740 EST. PATIENT, LEVEL IV Diagnosis: Chronic atrial fibrillation[ICD10: I48.2] Diagnosis: Other allergic rhinitis[ICD10: J30.89] Diagnosis: Encounter for therapeutic drug level monitoring[ICD10: Z51.81] Yarely Vega MD, [facility] CPT-4: 32509 08/30/2017 ([id number]) 74497 EST. PATIENT, LEVEL IV Diagnosis: Atrophy of thyroid (acquired)[ICD10: E03.4] Diagnosis: Cough[ICD10: R05] Diagnosis: Laceration without foreign body of left forearm, initial encounter[ICD10: S51.812A] Diagnosis: Candidiasis of skin and nail[ICD10: B37.2] Diagnosis: Other vitamin B12 deficiency anemias[ICD10: D51.8] Diagnosis: Slow transit constipation[ICD10: K59.01] Yarely Vega MD, [facility] CPT-4: 95928 07/06/2017 [id number] EST. PATIENT, LEVEL III Diagnosis: Other vitamin B12 deficiency anemias[ICD10: D51.8] Diagnosis: Acute laryngopharyngitis[ICD10: J06.0] Diagnosis: Other allergic rhinitis[ICD10: J30.89] Brianna Vega MD, [facility] CPT- 4: 49110 06/20/2017 ([id number]) 61777 EST. PATIENT, LEVEL IV Diagnosis: Essential (primary) hypertension[ICD10: I10] Diagnosis: Chronic atrial fibrillation[ICD10: I48.2] Diagnosis: Atrophy of thyroid (acquired)[ICD10: E03.4] Diagnosis: 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 factor deficiency[ICD10: D51.0] Yarely Vega MD, [facility] CPT-4: 46074 05/25/2017 ([id number]) 27484 EST. PATIENT, LEVEL IV Diagnosis: Type 2 diabetes mellitus without complications[ICD10: E11.9] Diagnosis: Atrophy of thyroid (acquired)[ICD10: E03.4] Diagnosis: Chest pain on breathing[ICD10: R07.1] Diagnosis: Chondrocostal junction syndrome [Tietze][ICD10: M94.0] Diagnosis: Other fatigue[ICD10: R53.83] Yarely Vgea MD, [facility] CPT-4: 82980 03/23/2017 ([id number]) 94058 EST. PATIENT, LEVEL IV Diagnosis: Type 2 diabetes mellitus without complications[ICD10: E11.9] Diagnosis: Essential (primary) hypertension[ICD10: I10] Diagnosis: Headache[ICD10: R51] Diagnosis: Atrophy of thyroid (acquired)[ICD10: E03.4] Diagnosis: Vitamin B12 deficiency anemia, unspecified[ICD10: D51.9] Yarely Vega MD, [facility] CPT-4: 14635 01/23/2017 48791 EST. PATIENT, LEVEL III Diagnosis: Low back pain[ICD10: M54.5] Diagnosis: Pain in thoracic spine[ICD10: M54.6] Brianna Vega MD, [facility] CPT- 4: 69867 11/02/2016 ([id number]) 84526 EST. PATIENT, LEVEL IV Diagnosis: Essential (primary) hypertension[ICD10: I10] Diagnosis: Other vitamin B12 deficiency anemias[ICD10: D51.8] Diagnosis: Generalized abdominal pain[ICD10: R10.84] Yarely Vega MD, [facility] CPT-4: 63252 09/29/2016 ([id number]) 53162 EST. PATIENT, LEVEL IV Diagnosis: Essential (primary) hypertension[ICD10: I10] Yarely Vega MD, [facility] CPT-4: 48599 07/26/2016 ([id number]) 49243 EST. PATIENT, LEVEL IV Diagnosis: Benign lipomatous neoplasm of skin and subcutaneous tissue of right leg[ICD10: D17.23] Diagnosis: Pain in right ankle and joints of right foot[ICD10: M25.571] Diagnosis: Encounter for immunization[ICD10: Z23] Diagnosis: Vitamin B12 deficiency anemia, unspecified[ICD10: D51.9] Yarely Vega MD, [facility] CPT-4: 24252 05/25/2016 28330 EST. PATIENT, LEVEL III Diagnosis: Other chest pain[ICD10: R07.89] Diagnosis: Other vitamin B12 deficiency anemias[ICD10: D51.8] Brianna Vega MD, [facility] CPT-4: 97022 02/25/2016 ([id number]) 58882 EST. PATIENT, LEVEL IV Diagnosis: Essential (primary) hypertension[ICD10: I10] Diagnosis: Hypothyroidism, unspecified[ICD10: E03.9] Diagnosis: Other hypersomnia[ICD10: G47.19] Diagnosis: Idiopathic sleep related nonobstructive alveolar hypoventilation[ICD10: G47.34] Yarely Vega MD, [facility] CPT-4: 79161 01/25/2016 06763 EST. PATIENT, LEVEL III Diagnosis: Other vitamin B12 deficiency anemias[ICD10: D51.8] Diagnosis: Acute nasopharyngitis [common cold][ICD10: J00] Diagnosis: Other allergic rhinitis[ICD10: J30.89] Brianna Vega MD, [facility] CPT- 4: 55733 11/11/2015 ([id number]) 45334 EST. PATIENT, LEVEL IV Diagnosis: Essential tremor[ICD10: G25.0] Diagnosis: Chronic fatigue, unspecified[ICD10: R53.82] Diagnosis: Other hypersomnia[ICD10: G47.19] Diagnosis: Essential (primary) hypertension[ICD10: I10] Yarely Vega MD, [facility] CPT-4: 38571 10/12/2015 ([id number]) 97296 EST. PATIENT, LEVEL IV Diagnosis: Essential (primary) hypertension[ICD10: I10] Diagnosis: Chronic atrial fibrillation[ICD10: I48.2] Diagnosis: Abnormal levels of other serum enzymes[ICD10: R74.8] Diagnosis: Type 2 diabetes mellitus without complications[ICD10: E11.9] Diagnosis: Vitamin B12 deficiency anemia, unspecified[ICD10: D51.9] Yarely Vega MD, [facility] CPT-4: 06270 09/03/2015 ([id number]) 41258 EST. PATIENT, LEVEL III Diagnosis: Nausea[ICD10: R11.0] Diagnosis: Essential tremor[ICD10: G25.0] Diagnosis: Actinic keratosis[ICD10: L57.0] Yarely Vega MD, [facility] CPT-4: 79628 05/19/2015 ([id number]) 04775 EST. PATIENT, LEVEL IV Diagnosis: Vitamin B12 deficiency anemia, unspecified[ICD10: D51.9] Diagnosis: Chronic atrial fibrillation[ICD10: I48.2] Diagnosis: Headache[ICD10: R51] Diagnosis: Chronic fatigue, unspecified[ICD10: R53.82] Diagnosis: Cervicalgia[ICD10: M54.2] Yarely Vega MD, [facility] CPT-4: 58678 05/12/2015 ([id number]) [id number] EST. PATIENT, LEVEL IV Diagnosis: ESSENTIAL HYPERTENSION[ICD9: 401.9] Diagnosis: Afib[ICD9: 427.31] Diagnosis: Anxiety[ICD9: 300.00] Diagnosis: Insomnia[ICD9: 780.52] Yarely Vega MD, [facility] CPT-4: 57092 01/13/2015 ([id number]) OFFICE VISIT, NEW - LEVEL 4 Diagnosis: Hypothyroidism[ICD9: 244.9] Diagnosis: DIABETES TYPE II[ICD9: 250.00] Diagnosis: ESSENTIAL HYPERTENSION[ICD9: 401.9] Diagnosis: Afib[ICD9: 427.31] Diagnosis: Anxiety[ICD9: 300.00] Diagnosis: B12 deficiency[ICD9: 266.2] [facility] CPT-4: 31497 12/16/2014 Plan of Care Planned Activity Notes Codes Status Date Patient Education: Patient Medication Summary Completed 08/29/2018 [...] Summary Completed 06/20/2018 App[facility]ment: [phone] (30 min) Complex 06/07/2018 Appointment: Injection 06/06/2018 Patient Education: Patient Medication Summary Completed 06/06/2018 Appointment: [phone] (15 min) Moderate 05/31/2018 Appointment: Injection 05/24/2018 [...] restart flonase 05/03/2018 Appointment: Yarely [facility]ega [phone] [place] (15 min) Moderate 05/03/2018 Patient Education: Patient Medication Summary Completed 05/03/2018 Patient Education: Hypertension Completed 05/03/2018 Patient Education: Diabetes Completed 05/03/2018 Appointment: Injection 04/26/2018 Patient Education: Patient Medication Summary Completed 04/26/2018 Appointment: Injection 04/12/2018 Patient Education: Patient Medication Summary Completed 04/12/2018 Appointment: Injection 03/30/2018 Patient Education: Patient Medication Summary Completed 03/30/2018 Appointment: Injection 03/16/2018 Patient Education: Patient Medication Summary Completed 03/16/2018 Referral: aCr Cat Dr. Completed 03/08/2018 Referral: Car Cat with Mateo Maldonado Completed 03/05/2018 Appointment: Injection 03/02/2018 Patient Education: Patient Medication Summary Completed 03/02/2018 Visit Plan: Shoulder pain - suspect a tendon rupture or partial tear - referral to dr cat for shoulder injections - pt is not interested in surgical intervention. 02/26/2018 Appointment: Yarely Vega WPtel: [facility] [place] (15 min) Moderate 02/26/2018 Patient Education: Patient Medication Summary Completed 02/26/2018 Care Plan: Referral Order SNOMED-CT : [id number] Pending 02/26/2018 Appointment: Injection 02/08/2018 Patient Education: Patient Medication Summary Completed 02/08/2018 Appointment: Injection 01/24/2018 Patient Education: Patient Medication Summary Completed 01/24/2018 Appointment: Injection 01/10/2018 Patient Education: Patient Medication Summary Completed 01/10/2018 Appointment: Injection 12/27/2017 Patient Education: Patient Medication Summary Completed 12/27/2017 Appointment: Yarely Vega WPtel: [facility] [place] (15 min) Moderate 12/26/2017 Visit Plan: Abxpzx-kncvaihrt-zfqxbyxr protonix-follow up with Dr Navarro as scheduled Cough-recent bronchitis-symptoms improved-call if symptoms do not completely resolve 12/12/2017 Appointment: Janet Fam WPtel: [phone] [place] (15 min) Moderate 12/12/2017 Patient [...] medication. 12/04/2017 Appointment: Yarely Vega [facility]el[phone] [facility] (15 min) Moderate 12/04/2017 Patient Education: Patient [...] Fatigue/malaise -Pt was advsied to ask the Risk Mgr the following: ask the heart doctor if [...] uncontrolled. 11/20/2017 Appointment: Yarely Vega [phone] [facility] (15 min) Moderate 11/20/2017 Patient Education: Patient [...] worse. 09/15/2017 Appointment: Janet Fam WPtel: [phone] [phone] [place] (15 min) Moderate 09/15/2017 Patient Education: Patient Medication Summary Completed 09/15/2017 Appointment: Yarely Vega WPtel: [facility] [place] (15 min) Moderate 09/11/2017 Visit Plan: Skin tear and Cellulitis - The patient was instructed in appropriate wound care. The patient was instructed to use the antibiotic ointment as per RX. The patient is to call for any change in symptoms, increase in size of the lesion, increase in pain, worsening redness, warmth, discharge. 09/07/2017 Appointment: Brianna Otoole WPtel: [facility] [place] (10 min) Simple 09/07/2017 Patient Education: Patient Medication Summary Completed 09/07/2017 Visit Plan: Lipoma - left ankle - talk to dr. barnes about possible surgery/laser for treatment of lipoma. Fatigue/malaise -Pt was advsied to ask the Risk Mgr the following: ask the heart doctor if there is an alternative to the amiodarone - you may be having side effects from the medication causing you to have pruritus (itching) and feeling like you have body aches, muscle aches, joint pain, fatigue, weight loss (decreased appetite), and pneumonia like symptoms. Congestion - claritin 10mg daily. 08/30/2017 Appointment: Yarely Vega WPtel: [facility] [place] (15 min) Moderate 08/30/2017 Patient Education: Patient Medication Summary Completed 08/30/2017 Appointment: Injection 08/24/2017 Appointment: Yarely Vega WPtel: [facility] [place] (15 min) Moderate 08/24/2017 Patient Education: [...] mucinex 07/06/2017 Appointment: [phone] (15 min) Moderate 07/06/2017 Patient Education: Patient [...] spray. 06/20/2017 App[facility]ment[phone] ([facility]) Moderate 06/20/2017 Patient [...] Appointment: Injection 06/05/2017 Appointment: [facility]ole [phone] [facility] [facility] - Annual Wellness Visit 06/05/2017 Patient [...] q 3 months or q 6 m [facility] based on previous levels of control. 05/25/2017 Appointment: Yarely Vega WPtel: [phone] [facility] (15 min) Moderate 05/25/2017 Patient Education: Patient [...] wall. Fatigue - pt to discuss with Risk Mgr about the possibility of amiodarone causing her fatigue/malaise. 03/23/2017 Appointment: Yarely Vega WPtel: [phone] [facility] (15 min) Moderate 03/23/2017 Patient Education: Patient [...] twice daily. 01/23/2017 Appointment: Yarely Vega WPtel: [facility] (15 min) Moderate 01/23/2017 Patient Education: Patient [...] improve. 11/02/2016 Appointment: [phone] [facility] [place] (15 min) Moderate 11/02/2016 [...] carafate 09/29/2016 Appointment: Yarely Vega [facility]Ptel: [phone] [facility] [place] (15 min) Moderate 09/29/2016 Patient Education: Patient Medication Summary Completed 09/29/2016 Appointment: Yarely Vega WPtel: [phone] [facility] [place] (15 min) Moderate 09/27/2016 Appointment: Yarely Vega WPtel: [phone] [facility] [place] (15 min) Moderate 09/20/2016 Appointment: Yarely Vega WPtel: [phone] [facility] (15 min) Moderate 09/20/2016 Patient Education: Patient Medication Summary Completed 09/06/2016 Appointment: Yarely Vega [facility]Ptel: [phone] [facility] (15 min) Moderate 08/30/2016 Appointment: Injection 08/29/2016 [...] concerns. 07/26/2016 Appointment: Yarely Vega [facility]Ptel: [phone] [facility] (15 min) Moderate 07/26/2016 Patient Education: Patient [...] surrogate. 05/30/2016 Appointment: [phone] [facility] [facility] - Annual Wellness Visit 05/30/2016 Patient [...] bedtime 05/25/2016 Appointment: Yarely Vega [facility]Ptel: [phone] [facility] (15 min) Moderate 05/25/2016 Patient Education: Patient Medication Summary Completed 05/25/2016 Patient Education: Obesity Completed 05/25/2016 Care Plan: Referral Order SNOMED-CT : [id number] Pending 05/25/2016 Appointment: Injection 05/10/2016 Patient Education: Patient Medication Summary Completed 05/10/2016 Appointment: Injection 04/26/2016 Patient Education: Patient Medication Summary Completed 04/26/2016 Appointment: Injection 04/11/2016 Patient Education: Patient Medication Summary Completed 04/11/2016 Appointment: Injection 03/31/2016 Patient Education: Patient Medication Summary Completed 03/31/2016 Patient Education: Patient Medication Summary Completed 03/22/2016 Care Plan: SCREENINGMAMMOGRAPHYDIGITAL LOINC : 11595-6 Pending 03/22/2016 Appointment: Injection 03/15/2016 Patient Education: [...] concerns. 02/25/2016 Appointment: [phone] [facility] [place] (15 min) Moderate 02/25/2016 [...] the patients recent sleep study - recommended [place] [facility] patient eval of pt - nocturnal [...] the patients recent sleep study - recommended [place] [facility] patient eval of pt - nocturnal [...] case with Faiza's daughter who had left [facility]. She is interested in looking at assisted living facilities for her mom as Faiza's family is for assisted living placement sooner rather than later. 10/12/2015 Appointment: Yarely Vega [phone] (15 min) Moderate 10/12/2015 Patient Education: Patient [...] Completed 08/17/2015 Appointment: Yarely Vega [facility]Ptel: [phone] [facility] (15 min) Moderate 08/11/2015 Appointment: Injection 08/06/2015 [...] 2 05/19/2015 Appointment: Yarely Vega WPtel: [facility] (30 min) Complex 05/19/2015 Patient Education: Patient [...] prn alprazolam. 01/13/2015 Appointment: Yarely Vega [facility]el: [phone] (15 min) Moderate 01/13/2015 Patient Education: Patient [...] No change in current medications. 12/16/2014 Appointment: Sarwat [phone] [place] ([place]) New Patient 12/16/2014 [...] case with Faiza's daughter who had left [facility]. She is interested in looking at [...] to post-nasal drainage - restart flonase . Medicare Exam - today we discussed [...] and understands the consequences of over-medication. . Bvfixq-yayvhvicm-yvgshgpo protonix-follow up with Dr Navarro as scheduled [...] Fatigue/malaise -Pt was advsied to ask the Risk Mgr the following: ask the heart doctor if [...] Fatigue/malaise -Pt was advsied to ask the Risk Mgr the following: ask the heart doctor if there is an alternative to the amiodarone - you may be having side effects from the medication causing you to have pruritus (itching) and feeling like you have body aches, muscle aches, joint pain, fatigue, weight loss (decreased appetite), and pneumonia like symptoms. Congestion - claritin 10mg daily. change priolosec to bedtime to see if [...] pt is not interested in surgical intervention. Reminder - please take the TOPAMAX daily [...] the patients recent sleep study - recommended [place] [facility] patient eval of pt - nocturnal [...] the patients recent sleep study - recommended [place] home patient eval of pt - nocturnal [...] for antibiotics as well as cough medication. loratadine - generic for CLARITIN - take [...] topamax - increase dose to twice daily. talk to Heart doctor about possible amiodarone [...] wall. Fatigue - pt to discuss with Risk Mgr about the possibility of amiodarone causing her fatigue/malaise. liquid or dissolving B12 - 2000 units [...] with current treatment plan and mucinex . URI - Pt advised to increase [...]
--- OUTSIDE RECORDS SUMMARY | 2018-12-05 18:00 | XMS REPORT | CCD ---
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 Worker Name Role Phone PP Unavailable CCM Unavailable Summary Purpose Interface Exchange Insurance Providers Payer name Policy type / Coverage type Covered green party ID Effective Begin Date Effective End Date WPS Medicare Part B Medicare Part B [id number] Unknown [employer] Life Insurance Medicare Part B [id number] Unknown [employer] [facility] in [place] Medicare Part B [id number] Unknown Family history Brother Diagnosis Age At Onset Heart Attack Unknown Mother Diagnosis Age At Onset Hypertension Unknown kidney disease Unknown Stroke Unknown Father Diagnosis Age At Onset Arthritis Unknown Social History Social History Element Codes Description Effective Dates Employment Unknown Retired worked at [employer] 11/20/2017 Marital status Unknown Single 12/16/[address]: 7671988 Former smoker 12/16/[address]: 152218819 Never drinks alcohol 12/16/2014 Allergies, Adverse Reactions, Alerts Substance Reaction Codes Entered Date Inactivated Date Status CODEINE RxNorm: 2670 05/25/2016 No Inactive Date Active ciprofloxacin RxNorm: 77060 12/16/2014 No Inactive Date Active MORPHINE SULFATE [...] ICD-9: V03.82 ICD-10: Z23 Active 05/24/2016 Unknown Vitamin B12 deficiency anemia, unspecified ICD-9: 281.1 ICD-10: D51.9 Active 06/21/2016 Unknown Pain in left shoulder ICD- 9: 719.41 ICD-10: M25.512 Active 02/26/2018 Unknown Pain in right shoulder ICD-9: 719.41 ICD-10: M25.511 Active 02/26/2018 Unknown Cough ICD-9: 786.2 ICD-10: R05 Active [...] immunization ICD-9: V03.82 ICD-10: Z23 05/24/2016 Active Vitamin B12 deficiency anemia, unspecified ICD-9: 281.1 ICD-10: D51.9 06/21/2016 Active Pain in left shoulder ICD- 9: 719.41 ICD-10: M25.512 02/26/2018 Active Pain in right shoulder ICD-9: 719.41 ICD-10: M25.511 02/26/2018 Active Cough ICD-9: 786.2 ICD-10: R05 07/06/2017 [...] Start Date Stop Date Status Fill Instructions albuterol sulfate 2.5 mg/3 mL (0.083 %) solution for nebulization RxNorm: 677298 3 Milliliter(s) INH Q6 PRN 08/15/2018 No Stop Date Active Aricept 10 mg tablet RxNorm: 493391 1 Tablet(s) PO daily 08/15/2018 08/09/2019 Active liothyronine 5 mcg tablet RxNorm: 657367 Tablet(s) TAKE 1 TABLET BY MOUTH TWICE DAILY 08/15/2018 02/10/2019 Active doxycycline hyclate 100 mg capsule RxNorm: 2899562 1 Capsule(s) PO BID 08/15/2018 08/24/2018 Active cyanocobalamin (vit B-12) 1,000 mcg/mL injection solution RxNorm: 879757 Milliliter(s) Inj 08/01/2018 08/01/2018 Inactive cyanocobalamin (vit B-12) 1,000 mcg/mL injection solution RxNorm: 350082 Milliliter(s) Inj 07/19/2018 07/19/2018 Inactive hydrocodone 5 mg-acetaminophen 325 mg tablet RxNorm: 406155 1-2 Tablet(s) PO Q6 as needed for pain 07/18/2018 08/16/2018 Active betamethasone valerate 0.1 % topical ointment RxNorm: 096721 1 TOP BID 07/04/2018 07/03/2018 Inactive applying to skin under nose x 10 days cyanocobalamin (vit B-12) 1,000 mcg/mL injection solution RxNorm: 391404 Milliliter(s) Inj 07/04/2018 07/04/2018 Inactive betamethasone valerate 0.1 % topical ointment RxNorm: 730796 1 TOP BID 07/04/2018 07/13/2018 Inactive applying to skin under nose x 10 days Aricept 10 mg tablet RxNorm: 591322 Tablet(s) 1 Tablet(s) PO daily 06/25/2018 08/14/2018 Inactive Flonase Allergy Relief 50 mcg/actuation nasal spray,suspension RxNorm: 9154919 [place] 1 [place] NASAL BID 06/20/2018 10/17/2018 Active cyanocobalamin (vit B-12) 1,000 mcg/mL injection solution RxNorm: 165343 Milliliter(s) Inj 06/20/2018 06/20/2018 Inactive hydrocodone 5 mg-acetaminophen 325 mg tablet RxNorm: 659382 1-2 Tablet(s) PO Q6 as needed for pain 06/20/2018 07/17/2018 Inactive cyanocobalamin (vit B-12) 1,000 mcg/mL injection solution RxNorm: 351950 Milliliter(s) Inj 06/06/2018 06/06/2018 Inactive alprazolam 0.25 mg tablet RxNorm: 074085 1 Tablet(s) PO BID 05/25/2018 08/22/2018 Active hydrocodone 5 mg-acetaminophen 325 mg tablet RxNorm: 370387 1-2 Tablet(s) PO Q6 as needed for pain 05/24/2018 06/19/2018 Inactive cyanocobalamin (vit B-12) 1,000 mcg/mL injection solution RxNorm: 671864 Milliliter(s) Inj 05/24/2018 05/24/2018 Inactive cyanocobalamin (vit B-12) 1,000 mcg/mL injection solution RxNorm: 087015 Milliliter(s) Inj 05/09/2018 05/09/2018 Inactive Claritin 10 mg tablet RxNorm: 637032 TAKE 1 TABLET BY MOUTH ONCE DAILY 05/08/2018 05/02/2019 Active Generic For:CLARITIN 10MG 05/07/2018 9:13:47 AM cyanocobalamin (vit B-12) 1,000 mcg/mL injection solution RxNorm: 210490 INJECT ONE 1 ML EVERY TWO WEEKS 05/03/2018 04/03/2019 Active 05/03/2018 9:13:42 AM Mobic 15 mg tablet RxNorm: 007360 Tablet(s) 1 Tablet(s) PO daily 04/26/2018 04/20/2019 Active buspirone 15 mg tablet RxNorm: 659185 Tablet(s) TAKE 1 TABLET BY MOUTH TWICE DAILY 04/26/2018 04/20/2019 Active Generic For:BUSPAR 15MG 05/31/2017 9:19:20 AM Norvasc 5 mg tablet RxNorm: 982863 Tablet(s) 1 Tablet(s) PO daily 04/26/2018 04/20/2019 Active cyanocobalamin (vit B-12) 1,000 mcg/mL injection solution RxNorm: 894827 Milliliter(s) Inj 04/26/2018 04/26/2018 Inactive hydrocodone 5 mg-acetaminophen 325 mg tablet RxNorm: 033430 1-2 Tablet(s) PO Q6 as needed for pain 04/25/2018 05/23/2018 Inactive cyanocobalamin (vit B-12) 1,000 mcg/mL injection solution RxNorm: 250728 Milliliter(s) Inj 04/12/2018 04/12/2018 Inactive Topamax 25 mg tablet RxNorm: 353697 1 Tablet(s) PO BID 04/09/2018 05/02/2018 Inactive Generic For:TOPAMAX 25MG 12/06/2016 9:15:13 AM Zoloft 50 mg tablet RxNorm: 976789 TAKE 1 TABLET BY MOUTH ONCE DAILY 04/04/2018 12/29/2018 Active Generic For:ZOLOFT 50MG 04/04/2018 9:13:25 AM cyanocobalamin (vit B-12) 1,000 mcg/mL injection solution RxNorm: 685282 Milliliter(s) Inj 03/30/2018 03/30/2018 Inactive levothyroxine 125 mcg tablet RxNorm: 456106 TAKE 1 TABLET BY MOUTH EVERY DAY 03/26/2018 09/21/2018 Active Generic For:SYNTHROID 125MCG TAB 03/26/2018 9:15:59 AM liothyronine 5 mcg tablet RxNorm: 734460 TAKE 1 TABLET BY MOUTH TWICE DAILY 03/26/2018 08/14/2018 Inactive Generic For:CYTOMEL 5MCG 03/26/2018 9:15:54 AM hydrocodone 5 mg-acetaminophen 325 mg tablet RxNorm: 837498 1-2 Tablet(s) PO Q6 as needed for pain 03/19/2018 04/17/2018 Inactive cyanocobalamin (vit B-12) 1,000 mcg/mL injection solution RxNorm: 610884 Milliliter(s) Inj 03/16/2018 03/16/2018 Inactive Flonase Allergy Relief 50 mcg/actuation nasal spray,suspension RxNorm: 4151938 1 [place] NASAL BID 03/05/2018 06/19/2018 Inactive cyanocobalamin (vit B-12) 1,000 mcg/mL injection solution RxNorm: 400198 Milliliter(s) Inj 03/02/2018 03/02/2018 Inactive alprazolam 0.25 mg tablet RxNorm: 381752 1 Tablet(s) PO BID 02/28/2018 05/27/2018 Inactive cyanocobalamin (vit B-12) 1,000 mcg/mL injection solution RxNorm: 866660 Milliliter(s) Inj 02/08/2018 02/08/2018 Inactive cyanocobalamin (vit B-12) 1,000 mcg/mL injection solution RxNorm: 698727 Milliliter(s) Inj 01/24/2018 01/24/2018 Inactive albuterol sulfate 2.5 mg/3 mL (0.083 %) solution for nebulization RxNorm: 554945 3 Milliliter(s) INH Q6 PRN 01/24/2018 05/02/2018 Inactive Claritin 10 mg tablet RxNorm: 234867 1 Tablet(s) PO daily 01/15/2018 05/07/2018 Inactive cyanocobalamin (vit B-12) 1,000 mcg/mL injection solution RxNorm: 729949 Milliliter(s) Inj 01/10/2018 01/10/2018 Inactive hydrocodone 5 mg-acetaminophen 325 mg tablet RxNorm: 088042 1-2 Tablet(s) PO Q6 as needed for pain 01/09/2018 02/07/2018 Inactive cyanocobalamin (vit B-12) 1,000 mcg/mL injection solution RxNorm: 222970 Milliliter(s) Inj 12/27/2017 12/27/2017 Inactive cyanocobalamin (vit B-12) 1,000 mcg/mL injection solution RxNorm: 411292 1 Milliliter(s) Inj 12/12/2017 12/12/2017 Inactive Zofran ODT 4 mg disintegrating tablet RxNorm: 555524 1 Tablet(s) PO TID as needed 12/08/2017 12/09/2017 Inactive hydrocodone 2.5 mg-guaifenesin 200 mg/5 mL oral solution RxNorm: 705670 5 Milliliter(s) PO 12/04/2017 05/06/2018 Inactive doxycycline hyclate 100 mg capsule RxNorm: 8055031 1 Capsule(s) PO BID 12/04/2017 12/13/2017 Inactive cyanocobalamin (vit B-12) 1,000 mcg/mL injection solution RxNorm: 473536 Milliliter(s) Inj 12/01/2017 12/01/2017 Inactive Flonase Allergy Relief 50 mcg/actuation nasal spray,suspension RxNorm: 7531633 1 [place] NASAL BID 11/20/2017 2018 Inactive cyanocobalamin (vit B-12) 1,000 mcg/mL injection solution RxNorm: 778421 1 Milliliter(s) Inj 11/17/2017 11/17/2017 Inactive hydrocodone 5 mg-acetaminophen 325 mg tablet RxNorm: 346591 1-2 Tablet(s) PO Q6 as needed for pain 11/16/2017 12/15/2017 Inactive cyanocobalamin (vit B-12) 1,000 mcg/mL injection solution RxNorm: 797816 1 Milliliter(s) Inj 11/02/2017 11/02/2017 Inactive hydrocodone 5 mg-acetaminophen 325 mg tablet RxNorm: 408365 1-2 Tablet(s) PO Q6 as needed for pain 10/25/2017 11/15/2017 Inactive Claritin 10 mg tablet RxNorm: 768452 1 Tablet(s) PO daily 10/25/2017 11/19/2017 Inactive albuterol sulfate 2.5 mg/3 mL (0.083 %) solution for nebulization RxNorm: 358353 3 Milliliter(s) INH Q6 PRN 10/25/2017 01/23/2018 Inactive Claritin 10 mg tablet RxNorm: 739808 1 Tablet(s) PO daily 10/25/2017 10/24/2017 Inactive cyanocobalamin (vit B-12) 1,000 mcg/mL injection solution RxNorm: 344493 1 Milliliter(s) Inj 10/20/2017 10/20/2017 Inactive Zoloft 50 mg tablet RxNorm: 608881 TAKE 1 TABLET BY MOUTH ONCE DAILY 10/13/2017 04/03/2018 Inactive Generic For:ZOLOFT 50MG 10/13/2017 8:59:44 AM cyanocobalamin (vit B-12) 1,000 mcg/mL injection solution RxNorm: 723322 Milliliter(s) Inj 10/06/2017 10/06/2017 Inactive liothyronine 5 mcg tablet RxNorm: 610515 TAKE 1 TABLET BY MOUTH TWICE DAILY 10/03/2017 03/25/2018 Inactive Generic For:CYTOMEL 5MCG 10/03/2017 9:13:38 AM cyanocobalamin (vit B-12) 1,000 mcg/mL injection solution RxNorm: 763327 Milliliter(s) Inj 09/21/2017 09/21/2017 Inactive albuterol sulfate 2.5 mg/3 mL (0.083 %) solution for nebulization RxNorm: 973507 3 Milliliter(s) INH Q6 PRN 09/21/2017 10/24/2017 Inactive hydrocodone 5 mg-acetaminophen 325 mg tablet RxNorm: 161938 1-2 Tablet(s) PO Q6 as needed for pain 09/21/2017 10/20/2017 Inactive Kenalog 40 mg/mL suspension for injection RxNorm: 6281878 Milliliter(s) Inj 09/15/2017 09/15/2017 Inactive Keflex 500 mg capsule RxNorm: 992118 1 Capsule(s) PO TID 09/07/2017 09/16/2017 Inactive Please deliver to patient cyanocobalamin (vit B-12) 1,000 mcg/mL injection solution RxNorm: 307046 Milliliter(s) Inj 09/07/2017 09/07/2017 Inactive alprazolam 0.25 mg tablet RxNorm: 861297 1 Tablet(s) PO BID 09/06/2017 02/27/2018 Inactive Aricept 10 mg tablet RxNorm: 626367 1 Tablet(s) PO daily 09/06/2017 06/24/2018 Inactive hydrocodone 5 mg-acetaminophen 325 mg tablet RxNorm: 813479 1-2 Tablet(s) PO Q6 as needed for pain 08/24/2017 09/20/2017 Inactive cyanocobalamin (vit B-12) 1,000 mcg/mL injection solution RxNorm: 287490 Milliliter(s) Inj 08/24/2017 08/24/2017 Inactive Norvasc 5 mg tablet RxNorm: 298690 1 Tablet(s) PO daily 08/18/2017 04/25/2018 Inactive nystatin 100,000 unit/gram topical powder RxNorm: 306719 1 Gram(s) TOP QID 08/17/2017 08/26/2017 Inactive hydrocodone 5 mg-acetaminophen 325 mg tablet RxNorm: 240369 1-2 Tablet(s) PO Q6 as needed for pain 07/25/2017 08/23/2017 Inactive Tamiflu 75 mg capsule RxNorm: 249535 1 Capsule(s) PO BID 07/24/2017 12/11/2017 Inactive nystatin 100,000 unit/gram topical powder RxNorm: 900381 1 Gram(s) TOP QID 07/14/2017 07/22/2017 Inactive levothyroxine 125 mcg tablet RxNorm: 455302 Tablet(s) 1 Tablet(s) PO daily 07/10/2017 01/05/2018 Inactive nystatin 100,000 unit/gram topical powder RxNorm: 183024 1 Gram(s) TOP QID 07/06/2017 07/13/2017 Inactive cyanocobalamin (vit B-12) 1,000 mcg/mL injection solution RxNorm: 871589 Milliliter(s) Inj 07/06/2017 07/06/2017 Inactive Kenalog 40 mg/mL suspension for injection RxNorm: 8616728 1 Milliliter(s) Inj 06/20/2017 06/20/2017 Inactive doxycycline hyclate 100 mg capsule RxNorm: 3631141 1 Capsule(s) PO BID 06/20/2017 06/26/2017 Inactive cyanocobalamin (vit B-12) 1,000 mcg/mL injection solution RxNorm: 773644 Milliliter(s) Inj 06/20/2017 06/20/2017 Inactive Keflex 500 mg capsule RxNorm: 716314 1 Capsule(s) PO TID 06/14/2017 06/23/2017 Inactive Please deliver to patient Mobic 15 mg tablet RxNorm: 182822 1 Tablet(s) PO daily 06/14/2017 04/25/2018 Inactive cyanocobalamin (vit B-12) 1,000 mcg/mL injection solution RxNorm: 313055 Milliliter(s) Inj 06/05/2017 06/05/2017 Inactive buspirone 15 mg tablet RxNorm: 905820 TAKE 1 TABLET BY MOUTH TWICE DAILY 05/31/2017 04/25/2018 Inactive Generic For:BUSPAR 15MG 05/31/2017 9:19:20 AM cyanocobalamin (vit B-12) 1,000 mcg/mL injection solution RxNorm: 815452 Milliliter(s) Inj 05/25/2017 05/25/2017 Inactive hydrocodone 5 mg-acetaminophen 325 mg tablet RxNorm: 298402 1-2 Tablet(s) PO Q6 as needed for pain 05/25/2017 06/23/2017 Inactive amiodarone 200 mg tablet RxNorm: 859360 1/2 Tablet(s) PO daily 05/22/2017 No Stop Date Active cardiology decreased to 100mg daily cyanocobalamin (vit B-12) 1,000 mcg/mL injection solution RxNorm: 683230 Milliliter(s) Inj 05/16/2017 05/16/2017 Inactive Zofran ODT 4 mg disintegrating tablet RxNorm: 632707 1 Tablet(s) PO TID as needed 05/03/2017 05/04/2017 Inactive hydrocodone 5 mg-acetaminophen 325 mg tablet RxNorm: 749042 1-2 Tablet(s) PO Q6 as needed for pain 05/01/2017 05/05/2017 Inactive cyanocobalamin (vit B-12) 1,000 mcg/mL injection solution RxNorm: 892740 1 Milliliter(s) Inj 05/01/2017 05/01/2017 Inactive cyanocobalamin (vit B-12) 1,000 mcg/mL injection solution RxNorm: 797747 INJECT ONE 1 ML EVERY TWO WEEKS 04/26/2017 12/04/2018 Active 04/26/2017 9:08:52 AM Zoloft 50 mg tablet RxNorm: 433690 Tablet(s) TAKE 1 TABLET BY MOUTH DAILY 04/25/2017 10/12/2017 Inactive Generic For:ZOLOFT 50MG cyanocobalamin (vit B-12) 1,000 mcg/mL injection solution RxNorm: 756187 Milliliter(s) Inj 04/18/2017 04/18/2017 Inactive liothyronine 5 mcg tablet RxNorm: 944163 1 Tablet(s) PO BID 04/13/2017 10/02/2017 Inactive cyanocobalamin (vit B-12) 1,000 mcg/mL injection solution RxNorm: 413578 Milliliter(s) Inj 04/06/2017 04/06/2017 Inactive hydrocodone 5 mg-acetaminophen 325 mg tablet RxNorm: 715011 1-2 Tablet(s) PO Q6 as needed for pain 04/06/2017 04/10/2017 Inactive cyanocobalamin (vit B-12) 1,000 mcg/mL injection solution RxNorm: 565841 Milliliter(s) Inj 03/22/2017 03/22/2017 Inactive alprazolam 0.25 mg tablet RxNorm: 201261 1 Tablet(s) PO BID 03/17/2017 12/11/2017 Inactive alprazolam 0.25 mg tablet RxNorm: 017631 1 Tablet(s) PO BID 03/16/2017 09/05/2017 Inactive hydrocodone 5 mg-acetaminophen 325 mg tablet RxNorm: 400679 1-2 Tablet(s) PO Q6 as needed for pain 03/09/2017 03/13/2017 Inactive cyanocobalamin (vit B-12) 1,000 mcg/mL injection solution RxNorm: 792548 Milliliter(s) Inj 03/09/2017 03/09/2017 Inactive cyanocobalamin (vit B-12) 1,000 mcg/mL injection solution RxNorm: 608181 Milliliter(s) Inj 02/23/2017 02/23/2017 Inactive cyanocobalamin (vit B-12) 1,000 mcg/mL injection solution RxNorm: 695997 Milliliter(s) Inj 02/09/2017 02/09/2017 Inactive hydrocodone 5 mg-acetaminophen 325 mg tablet RxNorm: 317524 1-2 Tablet(s) PO Q6 as needed for pain 02/08/2017 02/12/2017 Inactive Topamax 25 mg tablet RxNorm: 633984 1 Tablet(s) PO BID 01/23/2017 05/22/2017 Inactive Generic For:TOPAMAX 25MG 12/06/2016 9:15:13 AM cyanocobalamin (vit B-12) 1,000 mcg/mL injection solution RxNorm: 656653 Milliliter(s) Inj 01/23/2017 01/23/2017 Inactive cyanocobalamin (vit B-12) 1,000 mcg/mL injection solution RxNorm: 189028 Milliliter(s) Inj 01/10/2017 01/10/2017 Inactive hydrocodone 5 mg-acetaminophen 325 mg tablet RxNorm: 105453 1-2 Tablet(s) PO Q6 as needed for pain 01/09/2017 01/13/2017 Inactive cyanocobalamin (vit B-12) 1,000 mcg/mL injection solution RxNorm: 853508 1 Milliliter(s) Inj 12/28/2016 12/28/2016 Inactive cyanocobalamin (vit B-12) 1,000 mcg/mL injection solution RxNorm: 066218 Milliliter(s) Inj 12/14/2016 12/14/2016 Inactive buspirone 15 mg tablet RxNorm: 439691 1 Tablet(s) PO BID 12/12/2016 05/30/2017 Inactive hydrocodone 5 mg-acetaminophen 325 mg tablet RxNorm: 149766 1-2 Tablet(s) PO Q6 as needed for pain 12/08/2016 12/12/2016 Inactive Topamax 25 mg tablet RxNorm: 168758 TAKE 1 TABLET BY MOUTH EVERY DAY AT BEDTIME 12/06/2016 01/22/2017 Inactive Generic For:TOPAMAX 25MG 12/06/2016 9:15:13 AM Lac-Hydrin Five 5 % lotion RxNorm: 349669 1 Gram(s) TOP daily 12/02/2016 05/02/2018 Inactive cyanocobalamin (vit B-12) 1,000 mcg/mL injection solution RxNorm: 044094 Milliliter(s) Inj 11/24/2016 11/24/2016 Inactive Ceftin 500 mg tablet RxNorm: 769254 1 Tablet(s) PO BID 11/11/2016 06/13/2017 Inactive Cipro 500 mg tablet RxNorm: 639854 1 Tablet(s) PO BID 11/11/2016 11/10/2016 Inactive Cipro 500 mg tablet RxNorm: 898343 1 Tablet(s) PO BID 11/11/2016 11/11/2016 Inactive cyanocobalamin (vit B-12) 1,000 mcg/mL injection solution RxNorm: 191198 1 Milliliter(s) Inj 11/07/2016 11/07/2016 Inactive hydrocodone 5 mg-acetaminophen 325 mg tablet RxNorm: 754818 1-2 Tablet(s) PO Q6 as needed for pain 11/02/2016 11/06/2016 Inactive cyanocobalamin (vit B-12) 1,000 mcg/mL injection solution RxNorm: 591426 Milliliter(s) Inj 10/24/2016 10/24/2016 Inactive levothyroxine 125 mcg tablet RxNorm: 414356 Tablet(s) 1 Tablet(s) PO daily 10/24/2016 04/21/2017 Inactive liothyronine 5 mcg tablet RxNorm: 581589 1 Tablet(s) PO BID 10/24/2016 04/12/2017 Inactive hydrocodone 5 mg-acetaminophen 325 mg tablet RxNorm: 322050 1-2 Tablet(s) PO Q6 as needed for pain 10/17/2016 10/21/2016 Inactive Keflex 500 mg capsule RxNorm: 490340 1 Capsule(s) PO TID 10/07/2016 10/06/2016 Inactive Keflex 500 mg capsule RxNorm: 838936 1 Capsule(s) PO TID 10/07/2016 10/16/2016 Inactive Please deliver to patient cyanocobalamin (vit B-12) 1,000 mcg/mL injection solution RxNorm: 261578 1 Milliliter(s) Inj 09/29/2016 09/29/2016 Inactive alprazolam 0.25 mg tablet RxNorm: 812887 1 Tablet(s) PO BID 09/20/2016 03/16/2017 Inactive Cozaar 100 mg tablet RxNorm: 227209 1 Tablet(s) PO daily 09/14/2016 No Stop Date Active metoprolol tartrate 50 mg tablet RxNorm: 213076 1/2 Tablet(s) PO BID 09/14/2016 12/12/2016 Inactive Zoloft 50 mg tablet RxNorm: 826723 Tablet(s) TAKE 1 TABLET BY MOUTH DAILY 09/14/2016 03/12/2017 Inactive Generic For:ZOLOFT 50MG liothyronine 5 mcg tablet RxNorm: 064116 1 Tablet(s) PO BID 09/14/2016 10/23/2016 Inactive Calmoseptine 0.44 %-20.6 % topical ointment RxNorm: 996487 1 Application TOP BID and as needed to sore on buttocks 09/07/2016 No Stop Date Active cyanocobalamin (vit B-12) 1,000 mcg/mL injection solution RxNorm: 116094 Milliliter(s) Inj 08/29/2016 08/29/2016 Inactive hydrocodone 5 mg-acetaminophen 325 mg tablet RxNorm: 269097 1-2 Tablet(s) PO Q6 as needed for pain 08/29/2016 10/16/2016 Inactive levothyroxine 125 mcg tablet RxNorm: 091993 1 Tablet(s) PO daily 08/25/2016 10/23/2016 Inactive Topamax 25 mg tablet RxNorm: 494177 TAKE 1 TABLET BY MOUTH EVERY DAY AT BEDTIME 08/17/2016 12/05/2016 Inactive Generic For:TOPAMAX 25MG 08/17/2016 2:14:37 PM hydrocodone 5 mg-acetaminophen 325 mg tablet RxNorm: 742834 1-2 Tablet(s) PO Q6 as needed for pain 08/11/2016 08/28/2016 Inactive hydrocodone 5 mg-acetaminophen 325 mg tablet RxNorm: 118086 1 -2 Tablet(s) PO Q6 as needed for pain 08/11/2016 08/18/2016 Inactive hydrocodone 5 mg-acetaminophen 325 mg tablet RxNorm: 106781 1 Tablet(s) PO Q6 as needed for pain 08/05/2016 08/10/2016 Inactive cyanocobalamin (vit B-12) 1,000 mcg/mL injection solution RxNorm: 114580 Milliliter(s) Inj 08/04/2016 08/04/2016 Inactive Norvasc 10 mg tablet RxNorm: 800842 1 Tablet(s) PO daily 07/26/2016 07/20/2017 Inactive alprazolam 0.25 mg tablet RxNorm: 850985 1 Tablet(s) PO QHS 07/21/2016 09/19/2016 Inactive Norvasc 5 mg tablet RxNorm: 590533 1 Tablet(s) PO daily 07/21/2016 07/25/2016 Inactive levothyroxine 125 mcg tablet RxNorm: 639086 1 Tablet(s) PO daily 07/21/2016 12/11/2017 Inactive cyanocobalamin (vit B-12) 1,000 mcg/mL injection solution RxNorm: 679317 Milliliter(s) Inj 07/21/2016 07/21/2016 Inactive Zoloft 50 mg tablet RxNorm: 110465 Tablet(s) TAKE 1 TABLET BY MOUTH DAILY 07/21/2016 09/13/2016 Inactive Generic For:ZOLOFT 50MG cyanocobalamin (vit B-12) 1,000 mcg/mL injection solution RxNorm: 465597 1 Milliliter(s) Inj 07/05/2016 07/05/2016 Inactive cyanocobalamin (vit B-12) 1,000 mcg/mL injection solution RxNorm: 663939 1 Milliliter(s) Inj 06/22/2016 06/22/2016 Inactive cyanocobalamin (vit B-12) 1,000 mcg/mL injection solution RxNorm: 825357 Milliliter(s) Inj 06/09/2016 06/09/2016 Inactive Aricept 10 mg tablet RxNorm: 784334 1 Tablet(s) PO daily 05/27/2016 05/21/2017 Inactive Mobic 15 mg tablet RxNorm: 485760 1 Tablet(s) PO daily 05/27/2016 05/21/2017 Inactive levothyroxine 125 mcg tablet RxNorm: 883784 1 Tablet(s) PO daily 05/25/2016 07/20/2016 Inactive cyanocobalamin (vit B-12) 1,000 mcg/mL injection solution RxNorm: 793116 1 Milliliter(s) Inj 05/25/2016 05/25/2016 Inactive doxycycline hyclate 100 mg capsule RxNorm: 7964927 1 Capsule(s) PO BID 05/16/2016 05/15/2016 Inactive doxycycline hyclate 100 mg capsule RxNorm: 5404356 1 Capsule(s) PO BID 05/16/2016 05/22/2016 Inactive cyanocobalamin (vit B-12) 1,000 mcg/mL injection solution RxNorm: 454680 Milliliter(s) Inj 05/10/2016 05/10/2016 Inactive cyanocobalamin (vit B-12) 1,000 mcg/mL injection solution RxNorm: 570350 Milliliter(s) Inj 04/26/2016 04/26/2016 Inactive Topamax 25 mg tablet RxNorm: 202993 1 Tablet(s) PO QPM 04/22/2016 08/16/2016 Inactive cyanocobalamin (vit B-12) 1,000 mcg/mL injection solution RxNorm: 079611 Milliliter(s) 1 Milliliter(s) Inj [id number] 04/11/2016 12/31/2017 Inactive liothyronine 5 mcg tablet RxNorm: 104210 1 Tablet(s) PO BID 04/11/2016 09/13/2016 Inactive cyanocobalamin (vit B-12) 1,000 mcg/mL injection solution RxNorm: 264596 Milliliter(s) Inj 04/11/2016 04/11/2016 Inactive cyanocobalamin (vit B-12) 1,000 mcg/mL injection solution RxNorm: 877872 Milliliter(s) Inj 03/31/2016 03/31/2016 Inactive cyanocobalamin (vit B-12) 1,000 mcg/mL injection solution RxNorm: 314334 1 Milliliter(s) Inj 03/15/2016 03/15/2016 Inactive levothyroxine 125 mcg tablet RxNorm: 169722 1 Tablet(s) PO daily 2016 03/03/2016 Inactive levothyroxine 125 mcg tablet RxNorm: 213561 1 Tablet(s) PO daily 2016 05/24/2016 Inactive cyanocobalamin (vit B-12) 1,000 mcg/mL injection solution RxNorm: 310622 Milliliter(s) Inj 02/25/2016 02/25/2016 Inactive cyanocobalamin (vit B-12) 1,000 mcg/mL injection solution RxNorm: 877627 1 Milliliter(s) Inj 02/02/2016 02/02/2016 Inactive sucralfate 1 gram tablet RxNorm: 117960 1 Tablet(s) PO QHS 01/25/2016 No Stop Date Active amiodarone 200 mg tablet RxNorm: 864592 1/2 Tablet(s) PO BID 01/25/2016 05/21/2017 Inactive cyanocobalamin (vit B-12) 1,000 mcg/mL injection solution RxNorm: 349336 Milliliter(s) Inj 01/18/2016 01/18/2016 Inactive cyanocobalamin (vit B-12) 1,000 mcg/mL injection solution RxNorm: 530671 Milliliter(s) Inj 12/29/2015 12/29/2015 Inactive Topamax 25 mg tablet RxNorm: 229276 1 Tablet(s) PO QPM 12/08/2015 04/05/2016 Inactive cyanocobalamin (vit B-12) 1,000 mcg/mL injection solution RxNorm: 859784 Milliliter(s) Inj 12/08/2015 12/08/2015 Inactive Bactrim DS 800 mg-160 mg tablet RxNorm: 451222 1 Tablet(s) PO BID 11/23/2015 11/22/2015 Inactive cyanocobalamin (vit B-12) 1,000 mcg/mL injection solution RxNorm: 916582 Milliliter(s) Inj 11/23/2015 11/23/2015 Inactive Bactrim DS 800 mg-160 mg tablet RxNorm: 216097 1 Tablet(s) PO BID 11/23/2015 11/29/2015 Inactive cyanocobalamin (vit B-12) 1,000 mcg/mL injection solution RxNorm: 546616 Milliliter(s) Inj 11/11/2015 11/11/2015 Inactive amoxicillin 500 mg capsule RxNorm: 704096 1 Capsule(s) PO TID 11/10/2015 11/19/2015 Inactive Zithromax Z-Henrique 250 mg tablet RxNorm: 348838 1 Tablet(s) PO UD 11/10/2015 01/24/2016 Inactive zpack x 1 amoxicillin 500 mg capsule RxNorm: 554540 1 Capsule(s) PO TID 11/10/2015 11/09/2015 Inactive cyanocobalamin (vit B-12) 1,000 mcg/mL injection solution RxNorm: 265555 1 Milliliter(s) Inj 10/29/2015 10/29/2015 Inactive [place] 3 capsule RxNorm: 1 Capsule(s) PO QAM , 2 Capsules at noon, 1 Capsule QHS 10/13/2015 No Stop Date Active potassium chloride ER 20 mEq tablet,extended release RxNorm: 450915 2 Tablet(s) PO daily at noon 10/13/2015 No Stop Date Active alprazolam 0.25 mg tablet RxNorm: 801784 1 Tablet(s) PO QHS 10/13/2015 07/20/2016 Inactive amiodarone 200 mg tablet RxNorm: 316379 1 Tablet(s) PO BID 10/13/2015 01/24/2016 Inactive cyanocobalamin (vit B-12) 1,000 mcg/mL injection solution RxNorm: 213353 1 Milliliter(s) Inj 10/12/2015 10/12/2015 Inactive Zofran 4 mg tablet RxNorm: 008230 1 Tablet(s) PO daily as needed 10/07/2015 05/24/2016 Inactive Zoloft 50 mg tablet RxNorm: 655534 TAKE 1 TABLET BY MOUTH DAILY 10/05/2015 05/01/2016 Inactive Generic For:ZOLOFT 50MG cyanocobalamin (vit B-12) 1,000 mcg/mL injection solution RxNorm: 147622 1 Milliliter(s) Inj 09/29/2015 09/29/2015 Inactive cyanocobalamin (vit B-12) 1,000 mcg/mL injection solution RxNorm: 533236 1 Milliliter(s) Inj 09/17/2015 09/17/2015 Inactive Norvasc 5 mg tablet RxNorm: 648856 1 Tablet(s) PO daily 09/17/2015 07/20/2016 Inactive liothyronine 5 mcg tablet RxNorm: 478061 1 Tablet(s) PO BID 09/17/2015 03/14/2016 Inactive Zoloft 50 mg tablet RxNorm: 314577 1 Tablet(s) PO daily 09/17/2015 10/04/2015 Inactive buspirone 15 mg tablet RxNorm: 331188 1 Tablet(s) PO BID 09/17/2015 09/10/2016 Inactive buspirone 15 mg tablet RxNorm: 878281 1 Tablet(s) PO BID 09/14/2015 09/16/2015 Inactive Topamax 25 mg tablet RxNorm: 987881 1 Tablet(s) PO QPM 09/03/2015 12/07/2015 Inactive cyanocobalamin (vit B-12) 1,000 mcg/mL injection solution RxNorm: 800995 1 Milliliter(s) Inj 09/03/2015 09/03/2015 Inactive cyanocobalamin (vit B-12) 1,000 mcg/mL injection solution RxNorm: 463685 Milliliter(s) Inj 08/17/2015 08/17/2015 Inactive cyanocobalamin (vit B-12) 1,000 mcg/mL injection solution RxNorm: 744174 Milliliter(s) Inj 08/06/2015 08/06/2015 Inactive levothyroxine 150 mcg tablet RxNorm: 218306 1 Tablet(s) PO daily 07/22/2015 03/03/2016 Inactive Aricept 10 mg tablet RxNorm: 523170 1 Tablet(s) PO daily 07/22/2015 05/26/2016 Inactive Mobic 15 mg tablet RxNorm: 169612 1 Tablet(s) PO daily 07/22/2015 05/26/2016 Inactive cyanocobalamin (vit B-12) 1,000 mcg/mL injection solution RxNorm: 184924 Milliliter(s) Inj 07/22/2015 07/22/2015 Inactive liothyronine 5 mcg tablet RxNorm: 417703 1 Tablet(s) PO BID 07/22/2015 09/16/2015 Inactive cyanocobalamin (vit B-12) 1,000 mcg/mL injection solution RxNorm: 841485 Milliliter(s) Inj 07/08/2015 07/08/2015 Inactive cyanocobalamin (vit B-12) 1,000 mcg/mL injection solution RxNorm: 990441 Milliliter(s) Inj 06/23/2015 06/23/2015 Inactive cyanocobalamin (vit B-12) 1,000 mcg/mL injection solution RxNorm: 835239 1 Milliliter(s) Inj 06/08/2015 06/08/2015 Inactive cyanocobalamin (vit B-12) 1,000 mcg/mL injection solution RxNorm: 977761 Milliliter(s) Inj 05/27/2015 05/27/2015 Inactive Aricept 10 mg tablet RxNorm: 004413 1 Tablet(s) PO daily 05/20/2015 07/21/2015 Inactive Zofran 4 mg tablet RxNorm: 651892 1 Tablet(s) PO daily as needed 05/20/2015 06/18/2015 Inactive alprazolam 0.25 mg tablet RxNorm: 207202 1 Tablet(s) PO BID 05/20/2015 10/12/2015 Inactive Mobic 15 mg tablet RxNorm: 981005 1 Tablet(s) PO daily 05/20/2015 07/21/2015 Inactive tramadol ER 100 mg tablet,extended release 24 hr RxNorm: 775941 1 Tablet(s) PO Q6 as needed 05/13/2015 No Stop Date Active cyanocobalamin (vit B-12) 1,000 mcg/mL injection solution RxNorm: 879853 1 Milliliter(s) Inj 05/12/2015 05/12/2015 Inactive Topamax 25 mg tablet RxNorm: 912609 1 Tablet(s) PO BID (start at one pill at bedtime x 1week then twice daily thereafter) 05/12/2015 09/02/2015 Inactive cyanocobalamin (vit B-12) 1,000 mcg/mL injection kit RxNorm: 453092 kit Inj 04/30/2015 04/30/2015 Inactive cyanocobalamin (vit B-12) 1,000 mcg/mL injection solution RxNorm: 023510 Milliliter(s) Inj 04/16/2015 04/16/2015 Inactive levothyroxine 150 mcg tablet RxNorm: 570344 1 Tablet(s) PO daily 04/08/2015 07/21/2015 Inactive cyanocobalamin (vit B-12) 1,000 mcg/mL injection solution RxNorm: 837008 Milliliter(s) 1 Milliliter(s) Inj [id number] 04/08/2015 04/10/2016 Inactive Cytomel 5 mcg tablet RxNorm: 755757 1 Tablet(s) PO BID 04/08/2015 10/12/2015 Inactive Cytomel 5 mcg tablet RxNorm: 618414 1 Tablet(s) PO BID 04/07/2015 04/07/2015 Inactive Cytomel 5 mcg tablet RxNorm: 058539 1 Tablet(s) PO BID 04/07/2015 04/06/2015 Inactive cyanocobalamin (vit B-12) 1,000 mcg/mL injection solution RxNorm: 017760 Milliliter(s) Inj 04/02/2015 04/02/2015 Inactive cyanocobalamin (vit B-12) 1,000 mcg/mL injection solution RxNorm: 918254 Milliliter(s) Inj 03/18/2015 03/18/2015 Inactive cyanocobalamin (vit B-12) 1,000 mcg/mL injection solution RxNorm: 619182 Milliliter(s) 1 Milliliter(s) Inj [id number] 03/18/2015 04/07/2015 Inactive cyanocobalamin (vit B-12) 1,000 mcg/mL injection solution RxNorm: 811329 1 Milliliter(s) Inj L7pirrt 03/16/2015 03/17/2015 Inactive cyanocobalamin (vit B-12) 1,000 mcg/mL injection solution RxNorm: 475451 Milliliter(s) Inj 03/03/2015 03/03/2015 Inactive cyanocobalamin (vit B-12) 1,000 mcg/mL injection solution RxNorm: 847673 Milliliter(s) Inj 02/18/2015 02/18/2015 Inactive cyanocobalamin (vit B-12) 1,000 mcg/mL injection solution RxNorm: 628694 Milliliter(s) Inj 02/04/2015 02/04/2015 Inactive cyanocobalamin (vit B-12) 1,000 mcg/mL injection solution RxNorm: 164616 Milliliter(s) Inj 01/22/2015 01/22/2015 Inactive Lac-Hydrin Five 5 % lotion RxNorm: 634961 1 TOP daily 01/13/2015 03/13/2015 Inactive Lac-Hydrin Five 5 % lotion RxNorm: 739496 1 TOP daily 01/13/2015 01/12/2015 Inactive cyanocobalamin (vit B-12) 1,000 mcg/mL injection solution RxNorm: 472473 Milliliter(s) Inj 01/08/2015 01/08/2015 Inactive cyanocobalamin (vit B-12) 1,000 mcg/mL injection solution RxNorm: 820666 Milliliter(s) Inj 12/25/2014 12/25/2014 Inactive levothyroxine 150 mcg tablet RxNorm: 101701 1 Tablet(s) PO daily 12/24/2014 04/07/2015 Inactive tramadol 50 mg tablet RxNorm: 219022 1-2 Tablet(s) PO Q6 as needed 12/17/2014 05/12/2015 Inactive alprazolam 0.25 mg tablet RxNorm: 792565 1 Tablet(s) PO BID 12/17/2014 04/15/2015 Inactive Pradaxa 150 mg capsule RxNorm: 4105821 1 Capsule(s) PO BID 12/16/2014 No Stop Date Active metoprolol tartrate 50 mg tablet RxNorm: 119784 1/2 Tablet(s) PO BID 12/16/2014 09/13/2016 Inactive buspirone 15 mg tablet RxNorm: 823412 1 Tablet(s) PO BID 12/16/2014 09/13/2015 Inactive cyanocobalamin (vit B-12) 1,000 mcg/mL injection solution RxNorm: 645374 1 Milliliter(s) Inj [id number] 12/16/2014 03/15/2015 Inactive cyanocobalamin (vit B-12) 1,000 mcg/mL injection solution RxNorm: 832632 1 Milliliter(s) Inj R7unrpr 12/16/2014 12/15/2014 Inactive sucralfate 1 gram tablet RxNorm: 976314 Tablet(s) PO QID 12/16/2014 12/10/2015 Inactive cyanocobalamin (vit B-12) 1,000 mcg/mL injection solution RxNorm: 727070 Milliliter(s) Inj 12/10/2014 12/10/2014 Inactive cyanocobalamin (vit B-12) 1,000 mcg/mL injection solution RxNorm: 475993 Milliliter(s) Inj 11/26/2014 11/26/2014 Inactive Zoloft 50 mg tablet RxNorm: 761386 1 Tablet(s) PO daily 11/24/2014 06/21/2015 Inactive Zoloft 50 mg tablet RxNorm: 445913 1 Tablet(s) PO daily 11/24/2014 11/23/2014 Inactive cyanocobalamin (vit B-12) 1,000 mcg/mL injection kit RxNorm: 314387 Milliliter(s) Inj 11/12/2014 11/12/2014 Inactive cyanocobalamin (vit B-12) 1,000 mcg/mL injection solution RxNorm: 278469 Milliliter(s) Inj 10/28/2014 10/28/2014 Inactive [SAVINGS FOR NON-COVERED DRUGS -- BIN:[id number], PCN: [id number], Group: [id number], ID# [id number], Questions: . THIS IS NOT INSURANCE.] promethazine oral RxNorm: 8745 oral No Start Date Active digoxin 125 mcg tablet RxNorm: 167359 Tablet(s) PO every other day No Start Date Active furosemide 40 mg tablet RxNorm: 698226 1 Tablet(s) PO daily No Start Date Active Vitamin D3 5,000 unit tablet RxNorm: 231648 1 Tablet(s) PO daily No Start Date Active erythromycin 250 mg capsule,delayed release RxNorm: 240943 1 Capsule(s) PO AC No Start Date Active Protonix 40 mg tablet,delayed release RxNorm: 771586 1 Tablet(s) PO BID No Start Date Active Cozaar 100 mg tablet RxNorm: 888108 1 Tablet(s) PO daily No Start Date 09/13/2016 Inactive sucralfate 1 gram tablet RxNorm: 965237 Tablet(s) PO QID No Start Date 12/15/2014 Inactive amiodarone 200 mg tablet RxNorm: 112676 2 Tablet(s) PO daily No Start Date 10/13/2015 Inactive buspirone 15 mg tablet RxNorm: 985505 1 Tablet(s) PO daily No Start Date 12/15/2014 Inactive potassium chloride ER 20 mEq tablet,extended release RxNorm: 209692 1 Tablet(s) PO daily No Start Date 10/12/2015 Inactive Prilosec 40 mg capsule,delayed release RxNorm: 773179 1 Capsule(s) PO daily No Start Date 09/02/2015 Inactive [place] 3 capsule RxNorm: Capsule(s) PO No Start Date 10/12/2015 Inactive alprazolam 0.25 mg tablet RxNorm: 975891 Tablet(s) PO QHS No Start Date 12/16/2014 Inactive levothyroxine 125 mcg tablet RxNorm: 438873 1 Tablet(s) PO daily No Start Date 12/23/2014 Inactive liothyronine 5 mcg tablet RxNorm: 566458 1 Tablet(s) PO BID No Start Date 07/21/2015 Inactive Mobic 15 mg tablet RxNorm: 842965 Tablet(s) PO daily No Start Date 05/19/2015 Inactive Norvasc 5 mg tablet RxNorm: 272315 1 Tablet(s) PO daily No Start Date 09/16/2015 Inactive Zofran 4 mg tablet RxNorm: 695763 1 Tablet(s) PO daily as needed No Start Date 05/19/2015 Inactive Tamiflu 75 mg capsule RxNorm: 061977 1 Capsule(s) PO BID No Start Date 07/23/2017 Inactive tramadol 50 mg tablet RxNorm: 536496 1 Tablet(s) PO daily as needed No Start Date 12/16/2014 Inactive amiodarone 200 mg tablet RxNorm: 339914 1 Tablet(s) PO daily No Start Date 10/12/2015 Inactive Zofran ODT 4 mg disintegrating tablet RxNorm: 323232 1 Tablet(s) PO TID as needed No Start Date 05/02/2017 Inactive albuterol sulfate 2.5 mg/3 mL (0.083 %) solution for nebulization RxNorm: 351103 3 Milliliter(s) INH Q6 PRN No Start Date 09/20/2017 Inactive meclizine 25 mg tablet RxNorm: 925012 Tablet(s) PO as needed No Start Date 05/24/2016 Inactive Pradaxa 150 mg capsule RxNorm: 5008401 1 Capsule(s) PO daily No Start Date 12/15/2014 Inactive metoprolol tartrate 50 mg tablet RxNorm: 752615 1/2 Tablet(s) PO No Start Date 12/15/2014 Inactive Aricept 10 mg tablet RxNorm: 164897 Tablet(s) PO daily No Start Date 05/19/2015 Inactive Calmoseptine 0.44 %-20.6 % topical ointment RxNorm: 982403 1 Application TOP BID and as needed to sore on buttocks No Start Date 09/06/2016 Inactive Zithromax Z-Henrique 250 mg tablet RxNorm: 680849 1 Tablet(s) PO UD No Start Date 11/09/2015 Inactive zpack x 1 Medication Administered Medication Codes Instructions Start Date Status cyanocobalamin (vit B-12) 1,000 mcg/mL injection solution RxNorm: 059132 Milliliter 08/01/2018 No longer Active cyanocobalamin (vit B-12) 1,000 mcg/mL injection solution RxNorm: 377689 Milliliter 07/19/2018 No longer Active cyanocobalamin (vit B-12) 1,000 mcg/mL injection solution RxNorm: 227778 Milliliter 07/04/2018 No longer Active cyanocobalamin (vit B-12) 1,000 mcg/mL injection solution RxNorm: 639458 Milliliter 06/20/2018 No longer Active cyanocobalamin (vit B-12) 1,000 mcg/mL injection solution RxNorm: 194089 Milliliter 06/06/2018 No longer Active cyanocobalamin (vit B-12) 1,000 mcg/mL injection solution RxNorm: 428347 Milliliter 05/24/2018 No longer Active cyanocobalamin (vit B-12) 1,000 mcg/mL injection solution RxNorm: 302745 Milliliter 05/09/2018 No longer Active cyanocobalamin (vit B-12) 1,000 mcg/mL injection solution RxNorm: 629049 Milliliter 04/26/2018 No longer Active cyanocobalamin (vit B-12) 1,000 mcg/mL injection solution RxNorm: 060837 Milliliter 04/12/2018 No longer Active cyanocobalamin (vit B-12) 1,000 mcg/mL injection solution RxNorm: 570356 Milliliter 03/30/2018 No longer Active cyanocobalamin (vit B-12) 1,000 mcg/mL injection solution RxNorm: 884347 Milliliter 03/16/2018 No longer Active cyanocobalamin (vit B-12) 1,000 mcg/mL injection solution RxNorm: 374982 Milliliter 03/02/2018 No longer Active cyanocobalamin (vit B-12) 1,000 mcg/mL injection solution RxNorm: 614846 Milliliter 02/08/2018 No longer Active cyanocobalamin (vit B-12) 1,000 mcg/mL injection solution RxNorm: 049003 Milliliter 01/24/2018 No longer Active cyanocobalamin (vit B-12) 1,000 mcg/mL injection solution RxNorm: 840527 Milliliter 01/10/2018 No longer Active cyanocobalamin (vit B-12) 1,000 mcg/mL injection solution RxNorm: 244432 Milliliter 12/27/2017 No longer Active cyanocobalamin (vit B-12) 1,000 mcg/mL injection solution RxNorm: 760440 1Milliliter 12/12/2017 No longer Active cyanocobalamin (vit B-12) 1,000 mcg/mL injection solution RxNorm: 390484 Milliliter 12/01/2017 No longer Active cyanocobalamin (vit B-12) 1,000 mcg/mL injection solution RxNorm: 141768 1Milliliter 11/17/2017 No longer Active cyanocobalamin (vit B-12) 1,000 mcg/mL injection solution RxNorm: 589499 1Milliliter 11/02/2017 No longer Active cyanocobalamin (vit B-12) 1,000 mcg/mL injection solution RxNorm: 847596 1Milliliter 10/20/2017 No longer Active cyanocobalamin (vit B-12) 1,000 mcg/mL injection solution RxNorm: 840925 Milliliter 10/06/2017 No longer Active cyanocobalamin (vit B-12) 1,000 mcg/mL injection solution RxNorm: 801295 Milliliter 09/21/2017 No longer Active Kenalog 40 mg/mL suspension for injection RxNorm: 1543410 Milliliter 09/15/2017 No longer Active cyanocobalamin (vit B-12) 1,000 mcg/mL injection solution RxNorm: 558625 Milliliter 09/07/2017 No longer Active cyanocobalamin (vit B-12) 1,000 mcg/mL injection solution RxNorm: 456285 Milliliter 08/24/2017 No longer Active cyanocobalamin (vit B-12) 1,000 mcg/mL injection solution RxNorm: 895775 Milliliter 07/06/2017 No longer Active cyanocobalamin (vit B-12) 1,000 mcg/mL injection solution RxNorm: 151315 Milliliter 06/20/2017 No longer Active Kenalog 40 mg/mL suspension for injection RxNorm: 6798432 1Milliliter 06/20/2017 No longer Active cyanocobalamin (vit B-12) 1,000 mcg/mL injection solution RxNorm: 071431 Milliliter 06/05/2017 No longer Active cyanocobalamin (vit B-12) 1,000 mcg/mL injection solution RxNorm: 452156 Milliliter 05/25/2017 No longer Active cyanocobalamin (vit B-12) 1,000 mcg/mL injection solution RxNorm: 237000 Milliliter 05/16/2017 No longer Active cyanocobalamin (vit B-12) 1,000 mcg/mL injection solution RxNorm: 339235 1Milliliter 05/01/2017 No longer Active cyanocobalamin (vit B-12) 1,000 mcg/mL injection solution RxNorm: 722845 Milliliter 04/18/2017 No longer Active cyanocobalamin (vit B-12) 1,000 mcg/mL injection solution RxNorm: 731972 Milliliter 04/06/2017 No longer Active cyanocobalamin (vit B-12) 1,000 mcg/mL injection solution RxNorm: 916501 Milliliter 03/22/2017 No longer Active cyanocobalamin (vit B-12) 1,000 mcg/mL injection solution RxNorm: 655791 Milliliter 03/09/2017 No longer Active cyanocobalamin (vit B-12) 1,000 mcg/mL injection solution RxNorm: 428214 Milliliter 02/23/2017 No longer Active cyanocobalamin (vit B-12) 1,000 mcg/mL injection solution RxNorm: 380184 Milliliter 02/09/2017 No longer Active cyanocobalamin (vit B-12) 1,000 mcg/mL injection solution RxNorm: 309854 Milliliter 01/23/2017 No longer Active cyanocobalamin (vit B-12) 1,000 mcg/mL injection solution RxNorm: 733689 Milliliter 01/10/2017 No longer Active cyanocobalamin (vit B-12) 1,000 mcg/mL injection solution RxNorm: 786230 1Milliliter 12/28/2016 No longer Active cyanocobalamin (vit B-12) 1,000 mcg/mL injection solution RxNorm: 224759 Milliliter 12/14/2016 No longer Active cyanocobalamin (vit B-12) 1,000 mcg/mL injection solution RxNorm: 239383 Milliliter 11/24/2016 No longer Active cyanocobalamin (vit B-12) 1,000 mcg/mL injection solution RxNorm: 670047 1Milliliter 11/07/2016 No longer Active cyanocobalamin (vit B-12) 1,000 mcg/mL injection solution RxNorm: 309311 Milliliter 10/24/2016 No longer Active cyanocobalamin (vit B-12) 1,000 mcg/mL injection solution RxNorm: 701878 1Milliliter 09/29/2016 No longer Active cyanocobalamin (vit B-12) 1,000 mcg/mL injection solution RxNorm: 183423 Milliliter 08/29/2016 No longer Active cyanocobalamin (vit B-12) 1,000 mcg/mL injection solution RxNorm: 517455 Milliliter 08/04/2016 No longer Active cyanocobalamin (vit B-12) 1,000 mcg/mL injection solution RxNorm: 660992 Milliliter 07/21/2016 No longer Active cyanocobalamin (vit B-12) 1,000 mcg/mL injection solution RxNorm: 426573 1Milliliter 07/05/2016 No longer Active cyanocobalamin (vit B-12) 1,000 mcg/mL injection solution RxNorm: 837372 1Milliliter 06/22/2016 No longer Active cyanocobalamin (vit B-12) 1,000 mcg/mL injection solution RxNorm: 925882 Milliliter 06/09/2016 No longer Active cyanocobalamin (vit B-12) 1,000 mcg/mL injection solution RxNorm: 980967 1Milliliter 05/25/2016 No longer Active cyanocobalamin (vit B-12) 1,000 mcg/mL injection solution RxNorm: 758661 Milliliter 05/10/2016 No longer Active cyanocobalamin (vit B-12) 1,000 mcg/mL injection solution RxNorm: 968415 Milliliter 04/26/2016 No longer Active cyanocobalamin (vit B-12) 1,000 mcg/mL injection solution RxNorm: 699586 Milliliter 04/11/2016 No longer Active cyanocobalamin (vit B-12) 1,000 mcg/mL injection solution RxNorm: 319570 Milliliter 03/31/2016 No longer Active cyanocobalamin (vit B-12) 1,000 mcg/mL injection solution RxNorm: 589353 1Milliliter 03/15/2016 No longer Active cyanocobalamin (vit B-12) 1,000 mcg/mL injection solution RxNorm: 999860 Milliliter 02/25/2016 No longer Active cyanocobalamin (vit B-12) 1,000 mcg/mL injection solution RxNorm: 445929 1Milliliter 02/02/2016 No longer Active cyanocobalamin (vit B-12) 1,000 mcg/mL injection solution RxNorm: 798286 Milliliter 01/18/2016 No longer Active cyanocobalamin (vit B-12) 1,000 mcg/mL injection solution RxNorm: 981125 Milliliter 12/29/2015 No longer Active cyanocobalamin (vit B-12) 1,000 mcg/mL injection solution RxNorm: 755798 Milliliter 12/08/2015 No longer Active cyanocobalamin (vit B-12) 1,000 mcg/mL injection solution RxNorm: 160539 Milliliter 11/23/2015 No longer Active cyanocobalamin (vit B-12) 1,000 mcg/mL injection solution RxNorm: 620393 Milliliter 11/11/2015 No longer Active cyanocobalamin (vit B-12) 1,000 mcg/mL injection solution RxNorm: 157725 1Milliliter 10/29/2015 No longer Active cyanocobalamin (vit B-12) 1,000 mcg/mL injection solution RxNorm: 716660 1Milliliter 10/12/2015 No longer Active cyanocobalamin (vit B-12) 1,000 mcg/mL injection solution RxNorm: 440324 1Milliliter 09/29/2015 No longer Active cyanocobalamin (vit B-12) 1,000 mcg/mL injection solution RxNorm: 819177 1Milliliter 09/17/2015 No longer Active cyanocobalamin (vit B-12) 1,000 mcg/mL injection solution RxNorm: 092213 1Milliliter 09/03/2015 No longer Active cyanocobalamin (vit B-12) 1,000 mcg/mL injection solution RxNorm: 039832 Milliliter 08/17/2015 No longer Active cyanocobalamin (vit B-12) 1,000 mcg/mL injection solution RxNorm: 907082 Milliliter 08/06/2015 No longer Active cyanocobalamin (vit B-12) 1,000 mcg/mL injection solution RxNorm: 030597 Milliliter 07/22/2015 No longer Active cyanocobalamin (vit B-12) 1,000 mcg/mL injection solution RxNorm: 537816 Milliliter 07/08/2015 No longer Active cyanocobalamin (vit B-12) 1,000 mcg/mL injection solution RxNorm: 025460 Milliliter 06/23/2015 No longer Active cyanocobalamin (vit B-12) 1,000 mcg/mL injection solution RxNorm: 580499 1Milliliter 06/08/2015 No longer Active cyanocobalamin (vit B-12) 1,000 mcg/mL injection solution RxNorm: 358741 Milliliter 05/27/2015 No longer Active cyanocobalamin (vit B-12) 1,000 mcg/mL injection solution RxNorm: 253793 1Milliliter 05/12/2015 No longer Active cyanocobalamin (vit B-12) 1,000 mcg/mL injection kit RxNorm: 350920 kit 04/30/2015 No longer Active cyanocobalamin (vit B-12) 1,000 mcg/mL injection solution RxNorm: 678199 Milliliter 04/16/2015 No longer Active cyanocobalamin (vit B-12) 1,000 mcg/mL injection solution RxNorm: 757974 Milliliter 04/02/2015 No longer Active cyanocobalamin (vit B-12) 1,000 mcg/mL injection solution RxNorm: 888103 Milliliter 03/18/2015 No longer Active cyanocobalamin (vit B-12) 1,000 mcg/mL injection solution RxNorm: 873208 Milliliter 03/03/2015 No longer Active cyanocobalamin (vit B-12) 1,000 mcg/mL injection solution RxNorm: 193126 Milliliter 02/18/2015 No longer Active cyanocobalamin (vit B-12) 1,000 mcg/mL injection solution RxNorm: 209872 Milliliter 02/04/2015 No longer Active cyanocobalamin (vit B-12) 1,000 mcg/mL injection solution RxNorm: 596067 Milliliter 01/22/2015 No longer Active cyanocobalamin (vit B-12) 1,000 mcg/mL injection solution RxNorm: 855663 Milliliter 01/08/2015 No longer Active cyanocobalamin (vit B-12) 1,000 mcg/mL injection solution RxNorm: 917019 Milliliter 12/25/2014 No longer Active cyanocobalamin (vit B-12) 1,000 mcg/mL injection solution RxNorm: 894799 Milliliter 12/10/2014 No longer Active cyanocobalamin (vit B-12) 1,000 mcg/mL injection solution RxNorm: 458445 Milliliter 11/26/2014 No longer Active cyanocobalamin (vit B-12) 1,000 mcg/mL injection kit RxNorm: 127031 Milliliter 11/12/2014 No longer Active cyanocobalamin (vit B-12) 1,000 mcg/mL injection solution RxNorm: 614633 Milliliter 10/28/2014 No longer Active Immunizations Vaccine Codes Date Status Influenza CVX: 141 03/16/2018 completed Influenza CVX: 141 03/22/2017 completed Pneumococcal (Adult) CVX: 33 05/25/2016 completed Influenza CVX: 141 03/15/2016 completed Assessments Condition Codes Effective Dates 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 ICD-9: 281.0 08/01/2018 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 ICD-9: 266.2 07/19/2018 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 ICD-9: 281.1 07/04/2018 Type 2 diabetes mellitus without complications ICD-10: E11.9 ICD-9: 250.00 05/03/2018 Essential (primary) hypertension ICD-10: I10 ICD-9: 401.9 05/03/2018 Encounter for immunization ICD-10: Z23 ICD-9: V03.82 03/16/2018 Vitamin B12 deficiency anemia, unspecified ICD-10: D51.9 ICD-9: 281.1 03/02/2018 Pain in left shoulder ICD-10: M25.512 ICD-9: 719.41 02/26/2018 Pain in right shoulder ICD-10: M25.511 ICD-9: 719.41 02/26/2018 Cough ICD-10: R05 ICD-9: 786.2 12/12/2017 Nausea [...] Reason For Visit Effective Dates Notes cough 05/03/2018 She takes claritin daily and [...] (3rd IS) 3.20 uIU/mL 02/26/2018 Free T4 [id number] FREE T4 0.99 ng/dL 02/26/2018 Cbc With Differential Ord2 WBC 6.39 K/ul 02/26/2018 Cbc With Differential Ord2 RBC 4.67 M/ul 02/26/2018 Cbc With Differential Ord2 HGB 13.3 g/dl 02/26/2018 Cbc With Differential Ord2 Neut% 57.6 % 02/26/2018 Cbc With Differential Ord2 HCT 42.1 % 02/26/2018 Cbc With Differential Ord2 Lymph% 28.2 % 02/26/2018 Cbc With Differential Ord2 MCV 90.1 fl 02/26/2018 Cbc With Differential Ord2 MCH 28.5 pg 02/26/2018 Cbc With Differential Ord2 [place]% 10.3 % 02/26/2018 Cbc With Differential Ord2 Eos% 3.3 % 02/26/2018 Cbc With Differential Ord2 MCHC 31.6 pg 02/26/2018 Cbc With Differential Ord2 Baso% 0.6 % 02/26/2018 Cbc With Differential Ord2 PLT 239 K/ul 02/26/2018 Cbc With Differential Ord2 Neut ABS# 3.68 K/ul 02/26/2018 Cbc With Differential Ord2 RDW 14.7 % 02/26/2018 Cbc With Differential Ord2 Lymph ABS# 1.80 K/ul 02/26/2018 Cbc With Differential Ord2 [place] ABS# 0.7 K/ul 02/26/2018 Cbc With Differential Ord2 Eos ABS# 0.2 K/ul 02/26/2018 Cbc With Differential Ord2 Baso ABS# 0.0 K/ul 02/26/2018 B12 Qur652 B12 889.00 pg/ml 02/26/2018 Digoxin Ord9 DIGOXIN 0.7 NG/ML 11/23/2017 Comp Metabolic Bae742 NA 142 mEq/L 11/23/2017 Comp Metabolic Dvf192 K 4.9 mEq/L 11/23/2017 Comp Metabolic Lqi434 CL 112 mEq/L 11/23/2017 Comp Metabolic Ook371 CO2 18.0 mEq/L 11/23/2017 Comp Metabolic Kwl022 ANION GAP 17 11/23/2017 Comp Metabolic Gqj239 GLUCOSE 123 mg/dL 11/23/2017 Comp Metabolic Zxv387 Creat 1.0 mg/dL 11/23/2017 Comp Metabolic Tkm916 eGFR 59 ml/min/1.73m2 11/23/2017 Comp Metabolic Kzy684 BUN 24 mg/dL 11/23/2017 Comp Metabolic Ikv966 B/C Ratio 25.0 Ratio 11/23/2017 Comp Metabolic Lvl737 CALCIUM 9.4 mg/dL 11/23/2017 Comp Metabolic Gbu110 ALK PHOS 56 U/L 11/23/2017 Comp Metabolic Ltj905 AST(SGOT) 17 U/L 11/23/2017 Comp Metabolic Xmw838 ALT(SGPT) 16 U/L 11/23/2017 Comp Metabolic Jeb254 BILI T 0.7 mg/dL 11/23/2017 Comp Metabolic Tgx295 ALBUMIN 3.8 g/dL 11/23/2017 Comp Metabolic Tse910 TPRO 6.2 g/dL 11/23/2017 Comp Metabolic Jmi957 GLOB 2.4 g/dL 11/23/2017 Comp Metabolic Gbb245 A/G Ratio 1.6 Ratio 11/23/2017 Comp Metabolic Kzy023 Osmo 289 mOsmo 11/23/2017 Free T4 Mzn421 FREE T4 1.04 ng/dL 11/23/2017 %Hba1C Gvx858 % HbA1c 91636- 6 6.4 % 11/23/2017 %Hba1C Epb843 Gluc Ave 137 mg/dL 11/23/2017 Lipid Ord30 CHOL 179 mg/dL 11/23/2017 Lipid Ord30 HDL 51.0 mg/dl 11/23/2017 Lipid Ord30 TRIG 134 mg/dL 11/23/2017 Lipid Ord30 LDL 101 mg/dL 11/23/2017 Lipid Ord30 C/HDL 3.5 Ratio 11/23/2017 Tsh Ord6 TSH (3rd IS) 1.00 uIU/mL 11/23/2017 Microalbumin Txq076 MicroAlb <0.7 mg/dL 11/23/2017 Comp Metabolic Ntb199 NA 141 mEq/L 01/23/2017 Comp Metabolic Six798 K 4.5 mEq/L 01/23/2017 Comp Metabolic Khg962 CL 107 mEq/L 01/23/2017 Comp Metabolic Vaz987 CO2 21.0 mEq/L 01/23/2017 Comp Metabolic Xdp476 ANION GAP 18 01/23/2017 Comp Metabolic Wbd245 GLUCOSE 138 mg/dL 01/23/2017 Comp Metabolic Yzz322 Creat 1.0 mg/dL 01/23/2017 Comp Metabolic Vgv855 eGFR 56 ml/min/1.73m2 01/23/2017 Comp Metabolic Oej475 BUN 26 mg/dL 01/23/2017 Comp Metabolic Kio842 B/C Ratio 25.7 Ratio 01/23/2017 Comp Metabolic Cau695 CALCIUM 9.0 mg/dL 01/23/2017 Comp Metabolic Fkl183 ALK PHOS 37 U/L 01/23/2017 Comp Metabolic Nec779 AST(SGOT) 20 U/L 01/23/2017 Comp Metabolic Opl851 ALT(SGPT) 25 U/L 01/23/2017 Comp Metabolic Uvb882 BILI T 0.9 mg/dL 01/23/2017 Comp Metabolic Qss023 ALBUMIN 3.8 g/dL 01/23/2017 Comp Metabolic Soo180 TPRO 6.5 g/dL 01/23/2017 Comp Metabolic Ibs841 GLOB 2.7 g/dL 01/23/2017 Comp Metabolic Oos503 A/G Ratio 1.4 Ratio 01/23/2017 Comp Metabolic Svr138 Osmo 288 mOsmo 01/23/2017 Free T4 Mnc272 FREE T4 1.05 ng/dL 01/23/2017 %Hba1C Jow436 % HbA1c 20210- 6 6.1 % 01/23/2017 %Hba1C Edr793 Gluc Ave 128 mg/dL 01/23/2017 Tsh Ord6 hTSH II 1.68 uIU/mL 01/23/2017 Culture Urine [id number] URINE CULTURE SEE NOTES 11/10/2016 Culture Urine [id number] Continued Results 11/10/2016 Urine Culture Ucult Complete [...] Ord15 CALCIUM 9.3 mg/dL 09/29/2016 Free T4 Znc023 FREE T4 0.99 ng/dL 09/07/2016 Cbc With [...] 30.0 pg 09/07/2016 Cbc With Differential Ord2 [place]% 9.8 % 09/07/2016 Cbc With Differential Ord2 [...] 1.75 K/ul 09/07/2016 Cbc With Differential Ord2 [place] ABS# 0.6 K/ul 09/07/2016 Cbc With Differential Ord2 Eos ABS# 0.1 K/ul 09/07/2016 Cbc With Differential Ord2 Baso ABS# 0.0 K/ul 09/07/2016 Tsh Ord6 hTSH II 1.41 uIU/mL 09/07/2016 Culture Urine [id number] URINE CULTURE SEE NOTES 06/27/2016 Lipid Ord30 CHOL 196 mg/dL 06/22/2016 Lipid Ord30 HDL 63.0 mg/dl 06/22/2016 Lipid Ord30 TRIG 154 mg/dL 06/22/2016 Lipid Ord30 LDL 102 mg/dL 06/22/2016 Lipid Ord30 C/HDL 3.1 Ratio 06/22/2016 Hepatic Ran898 ALBUMIN 4.2 g/dL 06/22/2016 Hepatic Yyi989 TPRO 7.0 g/dL 06/22/2016 Hepatic Ucb786 GLOB 2.8 g/dL 06/22/2016 Hepatic Wck560 A/G Ratio 1.5 Ratio 06/22/2016 Hepatic Xig419 ALK PHOS 54 U/L 06/22/2016 Hepatic Ipa729 ALT(SGPT) 30 U/L 06/22/2016 Hepatic Cgw401 AST(SGOT) 24 U/L 06/22/2016 Hepatic Rzx592 BILI T 1.1 mg/dL 06/22/2016 Hepatic Xsd000 BILI D 0.2 mg/dL 06/22/2016 Hepatic Drm683 BILI I 0.9 mg/dL 06/22/2016 Comp Metabolic Lmf685 NA 139 mEq/L 06/14/2016 Comp Metabolic Eya689 K 4.6 mEq/L 06/14/2016 Comp Metabolic Owc968 CL 108 mEq/L 06/14/2016 Comp Metabolic Mqj408 CO2 22.0 mEq/L 06/14/2016 Comp Metabolic Btq591 ANION GAP 14 06/14/2016 Comp Metabolic Ezl669 GLUCOSE 114 mg/dL 06/14/2016 Comp Metabolic Tly598 Creat 1.2 mg/dL 06/14/2016 Comp Metabolic Gxk810 eGFR 48 ml/min/1.73m2 06/14/2016 Comp Metabolic Rfw828 BUN 24 mg/dL 06/14/2016 Comp Metabolic Tcv577 B/C Ratio 20.9 Ratio 06/14/2016 Comp Metabolic Bwn296 CALCIUM 9.9 mg/dL 06/14/2016 Comp Metabolic Llj659 ALK PHOS 47 U/L 06/14/2016 Comp Metabolic Uhm342 AST(SGOT) 28 U/L 06/14/2016 Comp Metabolic Pjd769 ALT(SGPT) 32 U/L 06/14/2016 Comp Metabolic Hwc317 BILI T 0.9 mg/dL 06/14/2016 Comp Metabolic Lyd865 ALBUMIN 4.1 g/dL 06/14/2016 Comp Metabolic Tis735 TPRO 6.9 g/dL 06/14/2016 Comp Metabolic Rva815 GLOB 2.8 g/dL 06/14/2016 Comp Metabolic Nks959 A/G Ratio 1.5 Ratio 06/14/2016 Comp Metabolic Zab440 Osmo 282 mOsmo 06/14/2016 Tsh Ord6 hTSH II 1.26 uIU/mL 06/14/2016 Free T4 Iho033 FREE T4 1.09 ng/dL 06/14/2016 Tsh Ord6 hTSH II 0.28 uIU/mL 02/02/2016 Digoxin Ord9 DIGOXIN 0.7 NG/ML 02/02/2016 Free T4 Jru698 FREE T4 1.23 ng/dL 02/02/2016 Hepatic Lnp238 ALBUMIN 4.0 g/dL 02/02/2016 Hepatic Llp709 TPRO 7.0 g/dL 02/02/2016 Hepatic Frh329 GLOB 3.0 g/dL 02/02/2016 Hepatic Qwg398 A/G Ratio 1.3 Ratio 02/02/2016 Hepatic Lku421 ALK PHOS 57 U/L 02/02/2016 Hepatic Hei533 ALT(SGPT) 62 U/L 02/02/2016 Hepatic Ejm923 AST(SGOT) 54 U/L 02/02/2016 Hepatic Crk808 BILI T 0.8 mg/dL 02/02/2016 Hepatic Yje697 BILI D 0.2 mg/dL 02/02/2016 Hepatic Fao001 BILI I 0.6 mg/dL 02/02/2016 Urine Culture Ucult Preliminary No Growth Day 1 11/25/2015 Urine Culture Ucult Complete No Growth Day 2 11/25/2015 Hepatic Hes583 ALBUMIN 3.9 g/dL 11/11/2015 Hepatic Krt990 TPRO 7.0 g/dL 11/11/2015 Hepatic Ibv981 GLOB 3.1 g/dL 11/11/2015 Hepatic Xol874 A/G Ratio 1.3 Ratio 11/11/2015 Hepatic Yjt932 ALK PHOS 63 U/L 11/11/2015 Hepatic Nas791 ALT(SGPT) 107 U/L 11/11/2015 Hepatic Xmz077 AST(SGOT) 101 U/L 11/11/2015 Hepatic Wpu790 BILI T 0.6 mg/dL 11/11/2015 Hepatic Cuu611 BILI D 0.1 mg/dL 11/11/2015 Hepatic Nog919 BILI I 0.5 mg/dL 11/11/2015 Comp Metabolic Ycr529 NA 138 mEq/L 10/29/2015 Comp Metabolic Oqx567 K 5.0 mEq/L 10/29/2015 Comp Metabolic Ysh435 CL 105 mEq/L 10/29/2015 Comp Metabolic Haq229 CO2 23.0 mEq/L 10/29/2015 Comp Metabolic Nrt367 ANION GAP 15 10/29/2015 Comp Metabolic Amz378 GLUCOSE 105 mg/dL 10/29/2015 Comp Metabolic Rgg459 Creat 1.0 mg/dL 10/29/2015 Comp Metabolic She463 eGFR 55 ml/min/1.73m2 10/29/2015 Comp Metabolic Gej601 BUN 20 mg/dL 10/29/2015 Comp Metabolic Igc748 B/C Ratio 19.4 Ratio 10/29/2015 Comp Metabolic Rpb544 CALCIUM 8.8 mg/dL 10/29/2015 Comp Metabolic Ueh523 ALK PHOS 56 U/L 10/29/2015 Comp Metabolic Fep675 AST(SGOT) 66 U/L 10/29/2015 Comp Metabolic Eyl965 ALT(SGPT) 78 U/L 10/29/2015 Comp Metabolic Yfn937 BILI T 0.7 mg/dL 10/29/2015 Comp Metabolic Ozc178 ALBUMIN 3.6 g/dL 10/29/2015 Comp Metabolic Dgi817 TPRO 6.6 g/dL 10/29/2015 Comp Metabolic Dar096 GLOB 3.0 g/dL 10/29/2015 Comp Metabolic Nxi991 A/G Ratio 1.2 Ratio 10/29/2015 Comp Metabolic Pce246 Osmo 279 mOsmo 10/29/2015 Comp Metabolic Hjr735 NA 136 mEq/L 09/03/2015 Comp Metabolic Uat181 K 4.4 mEq/L 09/03/2015 Comp Metabolic Uok247 CL 103 mEq/L 09/03/2015 Comp Metabolic Ibm183 CO2 24.0 mEq/L 09/03/2015 Comp Metabolic Piw510 ANION GAP 13 09/03/2015 Comp Metabolic Wyk564 GLUCOSE 87 mg/dL 09/03/2015 Comp Metabolic Hox589 Creat 1.1 mg/dL 09/03/2015 Comp Metabolic Kyz620 eGFR 53 ml/min/1.73m2 09/03/2015 Comp Metabolic Wmi292 BUN 17 mg/dL 09/03/2015 Comp Metabolic Nlp913 B/C Ratio 16.2 Ratio 09/03/2015 Comp Metabolic Cnk429 CALCIUM 9.0 mg/dL 09/03/2015 Comp Metabolic Wri665 ALK PHOS 55 U/L 09/03/2015 Comp Metabolic Eim592 AST(SGOT) 83 U/L 09/03/2015 Comp Metabolic Ojg854 ALT(SGPT) 126 U/L 09/03/2015 Comp Metabolic Ktv191 BILI T 0.9 mg/dL 09/03/2015 Comp Metabolic Xno054 ALBUMIN 3.9 g/dL 09/03/2015 Comp Metabolic Oje797 TPRO 6.8 g/dL 09/03/2015 Comp Metabolic Bph642 GLOB 2.9 g/dL 09/03/2015 Comp Metabolic Azo705 A/G Ratio 1.4 Ratio 09/03/2015 Comp Metabolic Oek081 Osmo 273 mOsmo 09/03/2015 Total T3 Ord42 TT3 0.6 ng/ml 07/09/2015 Tsh Ord6 hTSH II 1.62 uIU/mL 07/09/2015 Total T3 Ord42 TT3 0.5 ng/ml 04/02/2015 Free T4 Ise656 FREE T4 1.23 ng/dL 04/02/2015 Tsh Ord6 hTSH II 5.95 uIU/mL 04/02/2015 Review of Systems System Result Effective Dates Constitutional No recent illness 05/03/2018 Constitutional No [...] Procedure Codes Date THER/PROPH/DIAG INJ SC/IM CPT-4: 76767 08/01/2018 VITAMIN B12 INJECTION CPT- 4: J3420 08/01/2018 THER/PROPH/DIAG INJ SC/IM CPT-4: 79353 07/19/2018 THER/PROPH/DIAG INJ SC/IM CPT-4: 01816 07/04/2018 THER/PROPH/DIAG INJ SC/IM CPT-4: 19851 06/20/2018 THER/PROPH/DIAG INJ SC/IM CPT-4: 38672 06/06/2018 VITAMIN B12 INJECTION CPT- 4: J3420 06/06/2018 THER/PROPH/DIAG INJ SC/IM CPT-4: 69935 05/24/2018 THER/PROPH/DIAG INJ SC/IM CPT-4: 87859 05/09/2018 THER/PROPH/DIAG INJ SC/IM CPT-4: 42437 04/26/2018 VITAMIN B12 INJECTION CPT- 4: J3420 04/26/2018 THER/PROPH/DIAG INJ SC/IM CPT-4: 57665 04/12/2018 THER/PROPH/DIAG INJ SC/IM CPT-4: 12372 03/30/2018 THER/PROPH/DIAG INJ SC/IM CPT-4: 63988 03/16/2018 VITAMIN B12 INJECTION CPT- 4: J3420 03/16/2018 ADMIN INFLUENZA VIRUS VAC CPT-4: G0008 03/16/2018 FLU VACC PRSV FREE INC ANTIG Formatting Model/CDA Sections, Assigned to/Nga Ojeda CPT-4: 74216Drxmder 03/16/2018 THER/PROPH/DIAG INJ SC/IM CPT-4: 83388 03/02/2018 THER/PROPH/DIAG INJ SC/IM CPT-4: 98118 02/08/2018 THER/PROPH/DIAG INJ SC/IM CPT-4: 46384 01/24/2018 THER/PROPH/DIAG INJ SC/IM CPT-4: 13854 01/10/2018 THER/PROPH/DIAG INJ SC/IM CPT-4: 75518 12/27/2017 VITAMIN B12 INJECTION CPT- 4: J3420 12/27/2017 THER/PROPH/DIAG INJ SC/IM CPT-4: 88346 12/12/2017 THER/PROPH/DIAG INJ SC/IM CPT-4: 55809 12/01/2017 VITAMIN B12 INJECTION CPT- 4: J3420 12/01/2017 THER/PROPH/DIAG INJ SC/IM CPT-4: 18812 11/17/2017 THER/PROPH/DIAG INJ SC/IM CPT-4: 08422 11/02/2017 THER/PROPH/DIAG INJ SC/IM CPT-4: 50585 10/20/2017 THER/PROPH/DIAG INJ SC/IM CPT-4: 89933 10/06/2017 THER/PROPH/DIAG INJ SC/IM CPT-4: 69319 09/21/2017 TRIAMCINOLONE ACET INJ NOS CPT-4: J3301 09/15/2017 THER/PROPH/DIAG INJ SC/IM CPT-4: 79097 09/07/2017 THER/PROPH/DIAG INJ SC/IM CPT-4: 46027 08/24/2017 THER/PROPH/DIAG INJ SC/IM CPT-4: 00373 07/06/2017 THER/PROPH/DIAG INJ SC/IM CPT-4: 24078 06/20/2017 TRIAMCINOLONE ACET INJ NOS CPT-4: J3301 06/20/2017 PPPS, SUBSEQ VISIT CPT- 4: G0439 06/05/2017 THER/PROPH/DIAG INJ SC/IM CPT-4: 64500 06/05/2017 THER/PROPH/DIAG INJ SC/IM CPT-4: 86187 05/25/2017 VITAMIN B12 INJECTION CPT- 4: J3420 05/25/2017 THER/PROPH/DIAG INJ SC/IM CPT-4: 98155 05/16/2017 THER/PROPH/DIAG INJ SC/IM CPT-4: 72213 05/01/2017 THER/PROPH/DIAG INJ SC/IM CPT-4: 86247 04/18/2017 THER/PROPH/DIAG INJ SC/IM CPT-4: 81743 04/06/2017 ADMIN INFLUENZA VIRUS VAC CPT-4: G0008 03/22/2017 FLU VACC PRSV FREE INC ANTIG CPT-4: 83221 03/22/2017 THER/PROPH/DIAG INJ SC/IM CPT-4: 34704 03/09/2017 THER/PROPH/DIAG INJ SC/IM CPT-4: 72225 02/23/2017 THER/PROPH/DIAG INJ SC/IM CPT-4: 19177 02/09/2017 THER/PROPH/DIAG INJ SC/IM CPT-4: 35622 01/23/2017 THER/PROPH/DIAG INJ SC/IM CPT-4: 28683 01/10/2017 THER/PROPH/DIAG INJ SC/IM CPT-4: 39769 12/28/2016 THER/PROPH/DIAG INJ SC/IM CPT-4: 93677 12/14/2016 THER/PROPH/DIAG INJ SC/IM CPT-4: 54770 11/24/2016 URINALYSIS NONAUTO W/O SCOPE CPT-4: 08345 11/07/2016 THER/PROPH/DIAG INJ SC/IM CPT-4: 54632 11/07/2016 THER/PROPH/DIAG INJ SC/IM CPT-4: 74563 10/24/2016 THER/PROPH/DIAG INJ SC/IM CPT-4: 73998 09/29/2016 THER/PROPH/DIAG INJ SC/IM CPT-4: 98940 08/29/2016 THER/PROPH/DIAG INJ SC/IM CPT-4: 35176 08/04/2016 THER/PROPH/DIAG INJ SC/IM CPT-4: 57316 07/21/2016 THER/PROPH/DIAG INJ SC/IM CPT-4: 92335 07/05/2016 THER/PROPH/DIAG INJ SC/IM CPT-4: 76975 06/22/2016 URINALYSIS NONAUTO W/O SCOPE CPT-4: 24286 06/22/2016 THER/PROPH/DIAG INJ SC/IM CPT-4: 25695 06/09/2016 PPPS, SUBSEQ VISIT CPT- 4: G0439 05/30/2016 ADMIN PNEUMOCOCCAL VACCINE SNOMED CT: [id number] CPT-4: G0009 05/25/2016 Pneumococcal Polysaccharide Vaccine, 23-Valent, Ad CPT-4: 65192 05/25/2016 THER/PROPH/DIAG INJ SC/IM CPT-4: 85384 05/25/2016 THER/PROPH/DIAG INJ SC/IM CPT-4: 60891 05/10/2016 TRIAMCINOLONE ACET INJ NOS CPT-4: J3301 04/26/2016 VITAMIN B12 INJECTION CPT- 4: J3420 04/26/2016 THER/PROPH/DIAG INJ SC/IM CPT-4: 08699 04/11/2016 THER/PROPH/DIAG INJ SC/IM CPT-4: 25510 03/31/2016 ADMIN INFLUENZA VIRUS VAC CPT-4: G0008 03/15/2016 FLU VACC 4 STEPHANIE 3 YRS PLUS IM SNOMED CT: 56286605 CPT-4: 21978 03/15/2016 THER/PROPH/DIAG INJ SC/IM CPT-4: 23760 02/25/2016 THER/PROPH/DIAG INJ SC/IM CPT-4: 33012 02/02/2016 THER/PROPH/DIAG INJ SC/IM CPT-4: 80102 01/18/2016 VITAMIN B12 INJECTION CPT- 4: J3420 12/29/2015 THER/PROPH/DIAG INJ SC/IM CPT-4: 92199 12/29/2015 THER/PROPH/DIAG INJ SC/IM CPT-4: 91045 12/08/2015 THER/PROPH/DIAG INJ SC/IM CPT-4: 58799 11/23/2015 URINALYSIS NONAUTO W/O SCOPE CPT-4: 62102 11/23/2015 THER/PROPH/DIAG INJ SC/IM CPT-4: 55620 11/11/2015 THER/PROPH/DIAG INJ SC/IM CPT-4: 22837 10/29/2015 THER/PROPH/DIAG INJ SC/IM CPT-4: 90191 10/12/2015 VITAMIN B12 INJECTION CPT- 4: J3420 10/12/2015 THER/PROPH/DIAG INJ SC/IM CPT-4: 36180 09/29/2015 THER/PROPH/DIAG INJ SC/IM CPT-4: 43963 09/17/2015 THER/PROPH/DIAG INJ SC/IM CPT-4: 13845 09/03/2015 THER/PROPH/DIAG INJ SC/IM CPT-4: 08546 08/17/2015 THER/PROPH/DIAG INJ SC/IM CPT-4: 13643 08/06/2015 THER/PROPH/DIAG INJ SC/IM CPT-4: 83427 07/22/2015 THER/PROPH/DIAG INJ SC/IM CPT-4: 21125 07/08/2015 THER/PROPH/DIAG INJ SC/IM CPT-4: 20123 06/23/2015 THER/PROPH/DIAG INJ SC/IM CPT-4: 65509 06/08/2015 THER/PROPH/DIAG INJ SC/IM CPT-4: 70172 05/27/2015 DESTRUCT PREMALG LESION CPT-4: 87257 05/19/2015 DESTRUCT PREMALG LES 2-14 CPT-4: 37629 05/19/2015 THER/PROPH/DIAG INJ SC/IM CPT-4: 37748 05/12/2015 VITAMIN B12 INJECTION CPT- 4: J3420 05/12/2015 THER/PROPH/DIAG INJ SC/IM CPT-4: 98889 04/30/2015 VITAMIN B12 INJECTION CPT- 4: J3420 04/30/2015 THER/PROPH/DIAG INJ SC/IM CPT-4: 45734 04/16/2015 THER/PROPH/DIAG INJ SC/IM CPT-4: 25810 04/02/2015 VITAMIN B12 INJECTION CPT- 4: J3420 04/02/2015 THER/PROPH/DIAG INJ SC/IM CPT-4: 01891 03/18/2015 THER/PROPH/DIAG INJ SC/IM CPT-4: 19145 03/03/2015 THER/PROPH/DIAG INJ SC/IM CPT-4: 59071 02/18/2015 THER/PROPH/DIAG INJ SC/IM CPT-4: 03588 02/04/2015 VITAMIN B12 INJECTION CPT- 4: J3420 02/04/2015 THER/PROPH/DIAG INJ SC/IM CPT-4: 80058 01/22/2015 THER/PROPH/DIAG INJ SC/IM CPT-4: 88528 01/08/2015 VITAMIN B12 INJECTION CPT- 4: J3420 01/08/2015 THER/PROPH/DIAG INJ SC/IM CPT-4: 99591 12/25/2014 VITAMIN B12 INJECTION CPT- 4: J3420 12/25/2014 THER/PROPH/DIAG INJ SC/IM CPT-4: 89071 12/10/2014 VITAMIN B12 INJECTION CPT- 4: J3420 12/10/2014 THER/PROPH/DIAG INJ SC/IM CPT-4: 31625 11/26/2014 VITAMIN B12 INJECTION CPT- 4: J3420 11/26/2014 THER/PROPH/DIAG INJ SC/IM CPT-4: 47738 11/12/2014 VITAMIN B12 INJECTION CPT- 4: J3420 11/12/2014 THER/PROPH/DIAG INJ SC/IM CPT-4: 77808 10/28/2014 Vital Signs Date Vital 05/03/2018 Blood Pressure 1: 140/70 Code: 8480-6 BMI: 26.0 Code: 36442-2 Heart Rate 1: 70 bpm Height: 5'6" SpO2: 94% Weight: 161 lbs 04/26/2018 Height: 5'6" 02/26/2018 Blood Pressure 1: 130/72 Code: 8480-6 BMI: 27.9 Code: 01325-5 Heart Rate 1: 72 bpm Height: 5'6" SpO2: 93% Weight: 173 lbs 12/12/2017 Blood Pressure 1: 126/74 Code: 8480-6 BMI: 27.4 Code: 34830-8 Heart Rate 1: 83 bpm Height: 5'6" SpO2: 98% Weight: 170 lbs 12/04/2017 Blood Pressure 1: 104/68 Code: 8480-6 BMI: 28.2 Code: 14445-4 Heart Rate 1: 85 bpm Height: 5'6" SpO2: 95% Weight: 175 lbs 11/20/2017 Blood Pressure 1: 130/68 Code: 8480-6 BMI: 28.4 Code: 41178-2 Heart Rate 1: 80 bpm Height: 5'6" SpO2: 99% Weight: 176 lbs 11/02/2017 Height: 5'6" 09/15/2017 Blood Pressure 1: 134/74 Code: 8480-6 BMI: 28.4 Code: 39339-8 Heart Rate 1: 88 bpm Height: 5'6" SpO2: 98% Weight: 176 lbs 09/07/2017 Blood Pressure 1: 124/64 Code: 8480-6 Heart Rate 1: 90 bpm Height: SpO2: 97% Weight: 08/30/2017 Blood Pressure 1: 140/76 Code: 8480-6 BMI: 28.4 Code: 40362-8 Heart Rate 1: 90 bpm Height: 5'6" SpO2: 94% Weight: 176 lbs 07/06/2017 Blood Pressure 1: 132/66 Code: 8480-6 BMI: 29.4 Code: 52356-4 Heart Rate 1: 85 bpm Height: 5'6" SpO2: 97% Weight: 182 lbs 06/20/2017 Blood Pressure 1: 134/86 Code: 8480-6 Heart Rate 1: 90 bpm Height: SpO2: 98% Weight: 06/05/2017 BMI: 29.1 Code: 70342-9 Height: 5'6" Weight: 180 lbs 05/25/2017 Blood Pressure 1: 126/76 Code: 8480-6 BMI: 29.1 Code: 87361-6 Heart Rate 1: 77 bpm Height: 5'6" SpO2: 97% Weight: 180 lbs 03/23/2017 Blood Pressure 1: 142/84 Code: 8480-6 BMI: 29.1 Code: 74607-0 Heart Rate 1: 91 bpm Height: 5'6" SpO2: 97% Weight: 180 lbs 01/23/2017 Blood Pressure 1: 150/90 Code: 8480-6 BMI: 29.9 Code: 60721-2 Heart Rate 1: 81 bpm Height: 5'6" SpO2: 97% Weight: 185 lbs 11/02/2016 Blood Pressure 1: 148/78 Code: 8480-6 BMI: 29.7 Code: 66956-6 Heart Rate 1: 87 bpm Height: 5'6" SpO2: 97% Weight: 184 lbs 09/29/2016 Blood Pressure 1: 128/78 Code: 8480-6 BMI: 29.7 Code: 97889-1 Heart Rate 1: 78 bpm Height: 5'6" SpO2: 98% Weight: 184 lbs 07/26/2016 Blood Pressure 1: 138/72 Code: 8480-6 BMI: 30.0 Code: 23012-6 Heart Rate 1: 85 bpm Height: 5'6" SpO2: 97% Weight: 186 lbs 05/30/2016 Blood Pressure 1: 132/76 Code: 8480-6 BMI: 30.0 Code: 22850-0 Heart Rate 1: 80 bpm Height: 5'6" SpO2: 98% Waist Measure (cm): 99 cm Weight: 186 lbs 05/25/2016 Blood Pressure 1: 132/76 Code: 8480-6 BMI: 30.0 Code: 96791-2 Heart Rate 1: 80 bpm Height: 5'6" SpO2: 96% Weight: 186 lbs 02/25/2016 Blood Pressure 1: 110/64 Code: 8480-6 Heart Rate 1: 82 bpm Height: SpO2: 96% Weight: 01/25/2016 Blood Pressure 1: 118/70 Code: 8480-6 BMI: 30.0 Code: 88139-4 Heart Rate 1: 78 bpm Height: 5'6" SpO2: 97% Weight: 186 lbs 11/11/2015 Blood Pressure 1: 128/82 Code: 8480-6 BMI: 29.2 Code: 79048-4 Heart Rate 1: 86 bpm Height: 5'6" SpO2: 96% Temperature: 36.4 (C) / 97.6 (F) Weight: 181 lbs 10/12/2015 Blood Pressure 1: 118/70 Code: 8480-6 BMI: 29.2 Code: 80758-8 Heart Rate 1: 81 bpm Height: 5'6" SpO2: 95% Weight: 181 lbs 09/03/2015 Blood Pressure 1: 138/78 Code: 8480-6 BMI: 29.9 Code: 28659-0 Heart Rate 1: 88 bpm Height: 5'6" SpO2: 97% Weight: 185 lbs 05/19/2015 Blood Pressure 1: 146/78 Code: 8480-6 BMI: 30.0 Code: 86864-0 Heart Rate 1: 66 bpm Height: 5'6" SpO2: 97% Weight: 186 lbs 05/12/2015 Blood Pressure 1: 120/70 Code: 8480-6 BMI: 29.9 Code: 53267-8 Heart Rate 1: 89 bpm Height: 5'6" SpO2: 95% Weight: 185 lbs 01/13/2015 Blood Pressure 1: 140/90 Code: 8480-6 BMI: 30.3 Code: 20368-0 Heart Rate 1: 84 bpm Height: 5'6" SpO2: 95% Weight: 188 lbs 12/16/2014 Blood Pressure 1: 140/82 Code: 8480-6 BMI: 29.5 Code: 87256-9 Heart Rate 1: 86 bpm Height: 5'6" Weight: 183 lbs Functional Status No Functional Status data History of Present Illness Symptom Name Status Result Effective Date Notes cough Location in the throat 05/03/2018 None [...] data Encounters Encounter Performer Location Codes Date ([id number]) [id number] EST. PATIENT, LEVEL IV Diagnosis: Essential (primary) hypertension[ICD10: I10] Diagnosis: Type 2 diabetes mellitus without complications[ICD10: E11.9] Yarely Vega MD, [facility] CPT-4: 31861 05/03/2018 ([id number]) 40958 EST. PATIENT, LEVEL III Diagnosis: Pain in left shoulder[ICD10: M25.512] Diagnosis: Pain in right shoulder[ICD10: M25.511] Yarely Vega MD, [facility] CPT-4: 14019 02/26/2018 ([id number]) 90423 EST. PATIENT, LEVEL III Diagnosis: Nausea[ICD10: R11.0] Diagnosis: Cough[ICD10: R05] Diagnosis: 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 factor deficiency[ICD10: D51.0] Janet Vega MD, [facility] CPT-4: 88229 12/12/2017 ([id number]) 43472 EST. PATIENT, LEVEL IV Diagnosis: Acute bronchitis due to Hemophilus influenzae[ICD10: J20.1] Diagnosis: Cough[ICD10: R05] Yarely Vega MD, [facility] CPT-4: 33342 12/04/2017 ([id number]) 69589 EST. PATIENT, LEVEL IV Diagnosis: Essential (primary) hypertension[ICD10: I10] Diagnosis: Cough[ICD10: R05] Diagnosis: Chronic atrial fibrillation[ICD10: I48.2] Yarely Vega MD, [facility] CPT-4: 04640 11/20/2017 ([id number]) 49498 EST. PATIENT, LEVEL III Diagnosis: Cough[ICD10: R05] Diagnosis: Acute upper respiratory infection, unspecified[ICD10: J06.9] Janet Vega MD, [facility] CPT-4: 37960 09/15/2017 [id number] EST. PATIENT, LEVEL III Diagnosis: Laceration without foreign body of right forearm, initial encounter[ICD10: S51.811A] Diagnosis: Other vitamin B12 deficiency anemias[ICD10: D51.8] Brianna Vega MD, [facility] CPT-4: 42646 09/07/2017 ([id number]) 10907 EST. PATIENT, LEVEL IV Diagnosis: Chronic atrial fibrillation[ICD10: I48.2] Diagnosis: Other allergic rhinitis[ICD10: J30.89] Diagnosis: Encounter for therapeutic drug level monitoring[ICD10: Z51.81] Yarely Vega MD, [facility] CPT-4: 01025 08/30/2017 ([id number]) 35258 EST. PATIENT, LEVEL IV Diagnosis: Atrophy of thyroid (acquired)[ICD10: E03.4] Diagnosis: Cough[ICD10: R05] Diagnosis: Laceration without foreign body of left forearm, initial encounter[ICD10: S51.812A] Diagnosis: Candidiasis of skin and nail[ICD10: B37.2] Diagnosis: Other vitamin B12 deficiency anemias[ICD10: D51.8] Diagnosis: Slow transit constipation[ICD10: K59.01] Yarely Vega MD, [facility] CPT-4: 56262 07/06/2017 15940 EST. PATIENT, LEVEL III Diagnosis: Other vitamin B12 deficiency anemias[ICD10: D51.8] Diagnosis: Acute laryngopharyngitis[ICD10: J06.0] Diagnosis: Other allergic rhinitis[ICD10: J30.89] Brianna Vega MD, [facility] CPT- 4: 56467 06/20/2017 ([id number]) 16146 EST. PATIENT, LEVEL IV Diagnosis: Essential (primary) hypertension[ICD10: I10] Diagnosis: Chronic atrial fibrillation[ICD10: I48.2] Diagnosis: Atrophy of thyroid (acquired)[ICD10: E03.4] Diagnosis: 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 factor deficiency[ICD10: D51.0] Yarely Vega MD, [facility] CPT-4: 09060 05/25/2017 ([id number]) 28212 EST. 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 CPT-4: 73236 03/23/2017 ([id number]) 07720 EST. PATIENT, LEVEL IV Diagnosis: Type 2 diabetes mellitus without complications[ICD10: E11.9] Diagnosis: Essential (primary) hypertension[ICD10: I10] Diagnosis: Headache[ICD10: R51] Diagnosis: Atrophy of thyroid (acquired)[ICD10: E03.4] Diagnosis: Vitamin B12 deficiency anemia, unspecified[ICD10: D51.9] Yarely Vega MD, [facility] CPT-4: 37883 01/23/2017 85736 EST. PATIENT, LEVEL III Diagnosis: Low back pain[ICD10: M54.5] Diagnosis: Pain in thoracic spine[ICD10: M54.6] Brianna Vega MD, [facility] CPT- 4: 14457 11/02/2016 ([id number]) 83490 EST. PATIENT, LEVEL IV Diagnosis: Essential (primary) hypertension[ICD10: I10] Diagnosis: Other vitamin B12 deficiency anemias[ICD10: D51.8] Diagnosis: Generalized abdominal pain[ICD10: R10.84] Yarely Vega MD, [facility] CPT-4: 04152 09/29/2016 ([id number]) 62630 EST. PATIENT, LEVEL IV Diagnosis: Essential (primary) hypertension[ICD10: I10] Yarely Vega MD, [facility] CPT-4: 57229 07/26/2016 ([id number]) 33303 EST. PATIENT, LEVEL IV Diagnosis: Benign lipomatous neoplasm of skin and subcutaneous tissue of right leg[ICD10: D17.23] Diagnosis: Pain in right ankle and joints of right foot[ICD10: M25.571] Diagnosis: Encounter for immunization[ICD10: Z23] Diagnosis: Vitamin B12 deficiency anemia, unspecified[ICD10: D51.9] Yarely Vega MD, [facility] CPT-4: 46128 05/25/2016 07736 EST. PATIENT, LEVEL III Diagnosis: Other chest pain[ICD10: R07.89] Diagnosis: Other vitamin B12 deficiency anemias[ICD10: D51.8] Brianna Vega MD, [facility] CPT-4: 89549 02/25/2016 ([id number]) 94209 EST. 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 CPT-4: 51128 01/25/2016 90525 EST. PATIENT, LEVEL III Diagnosis: Other vitamin B12 deficiency anemias[ICD10: D51.8] Diagnosis: Acute nasopharyngitis [common cold][ICD10: J00] Diagnosis: Other allergic rhinitis[ICD10: J30.89] Brianna Vega MD, [facility] CPT- 4: 99018 11/11/2015 ([id number]) 14910 EST. PATIENT, LEVEL IV Diagnosis: Essential tremor[ICD10: G25.0] Diagnosis: Chronic fatigue, unspecified[ICD10: R53.82] Diagnosis: Other hypersomnia[ICD10: G47.19] Diagnosis: Essential (primary) hypertension[ICD10: I10] Yarely Vega MD, [facility] CPT-4: 24192 10/12/2015 ([id number]) 26689 EST. PATIENT, LEVEL IV Diagnosis: Essential (primary) hypertension[ICD10: I10] Diagnosis: Chronic atrial fibrillation[ICD10: I48.2] Diagnosis: Abnormal levels of other serum enzymes[ICD10: R74.8] Diagnosis: Type 2 diabetes mellitus without complications[ICD10: E11.9] Diagnosis: Vitamin B12 deficiency anemia, unspecified[ICD10: D51.9] Yarely Vega MD, [facility] CPT-4: 15010 09/03/2015 ([id number]) 86963 EST. PATIENT, LEVEL III Diagnosis: Nausea[ICD10: R11.0] Diagnosis: Essential tremor[ICD10: G25.0] Diagnosis: Actinic keratosis[ICD10: L57.0] Yarely Vega MD, [facility] CPT-4: 71794 05/19/2015 ([id number]) 62077 EST. PATIENT, LEVEL IV Diagnosis: Vitamin B12 deficiency anemia, unspecified[ICD10: D51.9] Diagnosis: Chronic atrial fibrillation[ICD10: I48.2] Diagnosis: Headache[ICD10: R51] Diagnosis: Chronic fatigue, unspecified[ICD10: R53.82] Diagnosis: Cervicalgia[ICD10: M54.2] [facility] CPT-4: 03209 05/12/2015 ([id number]) [id number] EST. PATIENT, LEVEL IV Diagnosis: ESSENTIAL HYPERTENSION[ICD9: 401.9] Diagnosis: Afib[ICD9: 427.31] Diagnosis: Anxiety[ICD9: 300.00] Diagnosis: Insomnia[ICD9: 780.52] [facility] CPT-4: 21060 01/13/2015 ([id number]) OFFICE VISIT, NEW - LEVEL 4 Diagnosis: Hypothyroidism[ICD9: 244.9] Diagnosis: DIABETES TYPE II[ICD9: 250.00] Diagnosis: ESSENTIAL HYPERTENSION[ICD9: 401.9] Diagnosis: Afib[ICD9: 427.31] Diagnosis: Anxiety[ICD9: 300.00] Diagnosis: B12 deficiency[ICD9: 266.2] [facility] CPT-4: 12104 12/16/2014 Plan of Care Planned Activity Notes Codes Status Date Appointment: Injection 08/01/2018 Patient Education: Patient Medication Summary Completed 08/01/2018 Appointment: Injection 07/19/2018 Patient Education: Patient Medication Summary Completed 07/19/2018 Appointment: Injection 07/04/2018 Patient Education: Patient Medication Summary Completed 07/04/2018 Appointment: Injection 06/20/2018 Patient Education: Patient Medication Summary Completed 06/20/2018 [phone] ([facility] Complex 06/07/2018 Appointment: Injection 06/06/2018 Patient Education: Patient Medication Summary Completed 06/06/2018 [phone] (15 min) Moderate 05/31/2018 Appointment: Injection [...] flonase 05/03/2018 Appointment: [phone] [place] (15 min) Moderate 05/03/2018 Patient [...] intervention. 02/26/2018 App[facility]ment: [phone] [place] (15 min) Moderate 02/26/2018 Patient Education: Patient Medication Summary Completed 02/26/2018 Care Plan: Referral Order SNOMED-CT : [id number] Pending 02/26/2018 Appointment: Injection 02/08/2018 Patient Education: Patient Medication Summary Completed 02/08/2018 Appointment: Injection 01/24/2018 Patient Education: Patient Medication Summary Completed 01/24/2018 Appointment: Injection 01/10/2018 Patient Education: Patient Medication Summary Completed 01/10/2018 Appointment: Injection 12/27/2017 Patient Education: Patient Medication Summary Completed 12/27/2017 Appointment: Yarely Vega WPtel: [phone] [facility] (15 min) Moderate 12/26/2017 Visit Plan: Wivxbk-yxcunlail-twrclnsd protonix-follow up with Dr Navarro as scheduled Cough-recent bronchitis-symptoms improved-call if symptoms do not completely resolve 12/12/2017 Appointment: Janet Fam WPtel: [phone] [phone] [place] (15 min) Moderate 12/12/2017 Patient Education: Patient Medication Summary Completed 12/12/2017 Visit Plan: Bronchitis - acute case of bronchitis identified. Pt has been given antibiotics, breathing treatments as appropriate, and pt has been instructed to call if symptoms are not improved, or if symptoms acutely worsen. Cough - rx for antibiotics as well as cough medication. 12/04/2017 Appointment: Yarely Veag WPtel: [facility] (15 min) Moderate 12/04/2017 Patient Education: Patient Medication Summary Completed 12/04/2017 Appointment: Bucky 12/01/2017 Patient Education: Patient Medication Summary Completed 12/01/2017 Visit Plan: Hypertension - well controlled - continue with current medications, continue with no added salt diet. Pt has been encouraged to exercise daily. The pt has been advised to call the office if there are any acute concerns about change in blood pressure readings at home. Fatigue/malaise -Pt was advsied to ask the Horizontal Resaw Operator the following: ask the heart doctor [...] Yarely Vega WPtel: [phone] [facility] [place] (15 min) Moderate 11/20/2017 Patient Education: [...] worse. 09/15/2017 Appointment: Janet Fam WPtel: [phone] [phone] [place] (15 min) Moderate 09/15/2017 Patient Education: Patient Medication Summary Completed 09/15/2017 App[facility]ment: [phone] [place] (15 min) Moderate 09/11/2017 Visit Plan: Skin tear and Cellulitis - The patient was instructed in appropriate wound care. The patient was instructed to use the antibiotic ointment as per RX. The patient is to call for any change in symptoms, increase in size of the lesion, increase in pain, worsening redness, warmth, discharge. 09/07/2017 App[facility]ment[phone] [place] (10 min) Simple 09/07/2017 Patient Education: Patient Medication Summary Completed 09/07/2017 Visit Plan: Lipoma - left ankle - talk to dr. barnes about possible surgery/laser for treatment of lipoma. Fatigue/malaise -Pt was advsied to ask the Horizontal Resaw Operator the following: ask the heart doctor if there is an alternative to the amiodarone - you may be having side effects from the medication causing you to have pruritus (itching) and feeling like you have body aches, muscle aches, joint pain, fatigue, weight loss (decreased appetite), and pneumonia like symptoms. Congestion - claritin 10mg daily. 08/30/2017 Appointment: Meggan Vegay WPtel: [facility] (15 min) Moderate 08/30/2017 Patient Education: Patient Medication Summary Completed 08/30/2017 Appointment: Injection 08/24/2017 Appointment: [place] b[place] WPtel: [facility] (15 min) Moderate 08/24/2017 Patient Education: Patient [...] and mucinex 07/06/2017 Appointment: Yarely Vega WPtel: [facility] (15 min) Moderate 07/06/2017 Patient Education: Patient [...] spray. 06/20/2017 Appointment: [facility] Oto[facility]el[phone] [facility] (15 min) Moderate [...] Bucky 06/05/2017 App[facility]ment: Bri[facility] Otoole [facility]Ptel[facility] [phone] [facility] [facility] - Annual Wellness Visit 06/05/2017 Patient Education: [...] q 3 months or q 6 m [facility] based on previous levels of control. 05/25/2017 Appointment: [facility] [phone] [facility] (15 min) Moderate 05/25/2017 Patient Education: [...] wall. Fatigue - pt to discuss with Horizontal Resaw Operator about the possibility of amiodarone causing her fatigue/malaise. 03/23/2017 Appointment: [phone] [facility] (15 min) Moderate 03/23/2017 Patient Education: [...] daily. 01/23/2017 Appointment: Yarely Vega WPtel: [phone] [facility] (15 min) Moderate 01/23/2017 Patient Education: Patient [...] improve. 11/02/2016 Appointment: Brianna Otoole WPtel: [phone] [facility] (15 min) Moderate 11/02/2016 Patient Education: Patient [...] carafate 09/29/2016 Appointment: [phone] [facility] (15 min) Moderate 09/29/2016 Patient Education: Patient Medication Summary Completed 09/29/2016 Appointment: Yarely Vega [facility]Ptel: [facility] [place] (15 min) Moderate 09/27/2016 Appointment: Yarely Vega [facility]Ptel: [facility] [place] (15 min) Moderate 09/20/2016 Appointment: Yarely Vega WPtel: [facility] [place] (15 min) Moderate 09/20/2016 Patient Education: Patient Medication Summary Completed 09/06/2016 Appointment: Yarely Vega [facility]Ptel: [facility] [place] (15 min) Moderate 08/30/2016 Appointment: [...] acute concerns. 07/26/2016 Appointment: Yarely Vega WPtel: [address] [place] [address] [place] (15 min) Moderate 07/26/2016 Patient Education: [...] surrogate. 05/30/2016 Appointment: Bri[facility] Otoole [facility]Ptel[facility] [phone] [facility] [facility] - Annual Wellness Visit 05/30/2016 Patient Education: [...] bedtime 05/25/2016 Appointment: [phone] [facility] (15 min) Moderate 05/25/2016 Patient Education: Patient Medication Summary Completed 05/25/2016 Patient Education: Obesity Completed 05/25/2016 Care Plan: Referral Order SNOMED-CT : [id number] Pending 05/25/2016 Appointment: Injection 05/10/2016 Patient Education: Patient Medication Summary Completed 05/10/2016 Appointment: Injection 04/26/2016 Patient Education: Patient Medication Summary Completed 04/26/2016 Appointment: Injection 04/11/2016 Patient Education: Patient Medication Summary Completed 04/11/2016 Appointment: Injection 03/31/2016 Patient Education: Patient Medication Summary Completed 03/31/2016 Patient Education: Patient Medication Summary Completed 03/22/2016 [facility] Pending 03/22/2016 Appointment: Injection 03/15/2016 Patient Education: [...] O[place] [facility]el[phone] [facility] (15 min) Moderate 02/25/2016 Patient Education: [...] the patients recent sleep study - recommended [place] home patient eval of pt - nocturnal [...] the patients recent sleep study - recommended [place] home patient eval of pt - nocturnal [...] later. 10/12/2015 Appointment: [phone] [facility] [place] (15 min) Moderate 10/12/2015 Patient Education: Patient [...] Completed 08/17/2015 Appointment: [facility]el[facility] [phone] [facility] [place] (15 min) Moderate 08/11/2015 Appointment: [...] x 2 05/19/2015 Appointment: Yarely Vega [facility]Ptel[facility] (30 min) [facility] 05/19/2015 Patient Education: Patient Medication Summary Completed [...] prn alprazolam. 01/13/2015 Appointment: Yarely Vega [facility]Ptel: [facility] (15 min) Moderate 01/13/2015 Patient Education: [...] medications. 12/16/2014 Appointment: [facility]el[phone] [facility] [place] ([place] [...] [employer]OP[employer] paperwork for health care surrogate. . Feuvnt-cegyzdmgv-tmemcndy protonix-follow up with Dr Navarro as scheduled [...] Fatigue/malaise -Pt was advsied to ask the Horizontal Resaw Operator the following: ask the heart doctor [...] Fatigue/malaise -Pt was advsied to ask the Horizontal Resaw Operator the following: ask the heart doctor [...] wall. Fatigue - pt to discuss with Horizontal Resaw Operator about the possibility of amiodarone causing [...] the patients recent sleep study - recommended [place] home patient eval of pt - nocturnal [...] the patients recent sleep study - recommended [place] home patient eval of pt - nocturnal [...]
--- OUTSIDE RECORDS SUMMARY | 2018-12-05 18:09 | XMS REPORT | CCD ---
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 Name Role Phone PP Unavailable CCM Unavailable Summary Purpose Interface Exchange Insurance Providers Payer name Policy type / Coverage type Covered democrat ID Effective Begin Date Effective End Date WPS Medicare Part B Medicare Part B [id number] Unknown Principal Life Insurance Medicare Part B [id number] Unknown [employer] Better [employer] in [place] Medicare Part B [id number] Unknown Family history Brother Diagnosis Age At Onset Heart Attack Unknown Mother Diagnosis Age At Onset Hypertension Unknown kidney disease Unknown Stroke Unknown Father Diagnosis Age At Onset Arthritis Unknown Social History Social History Element Codes Description Effective Dates Employment Unknown Retired worked at [employer] 11/20/2017 Marital status Unknown Single 12/16/[address]: 9990550 Former smoker 12/16/[address]: 431794715 Never drinks alcohol 12/16/2014 Allergies, Adverse Reactions, Alerts Substance Reaction Codes Entered Date Inactivated Date Status CODEINE RxNorm: 2670 05/25/2016 No Inactive Date Active ciprofloxacin RxNorm: 48905 12/16/2014 No Inactive Date Active MORPHINE SULFATE [...] (vit B-12) 1,000 mcg/mL injection solution RxNorm: 950529 Milliliter(s) Inj 08/01/2018 08/01/2018 Inactive cyanocobalamin (vit B-12) 1,000 mcg/mL injection solution RxNorm: 457230 Milliliter(s) Inj 07/19/2018 07/19/2018 Inactive hydrocodone 5 mg-acetaminophen 325 mg tablet RxNorm: 479478 1-2 Tablet(s) PO Q6 as needed for pain 07/18/2018 08/16/2018 Active betamethasone valerate 0.1 % topical ointment RxNorm: 906627 1 TOP BID 07/04/2018 07/03/2018 Inactive applying to skin under nose x 10 days cyanocobalamin (vit B-12) 1,000 mcg/mL injection solution RxNorm: 280715 Milliliter(s) Inj 07/04/2018 07/04/2018 Inactive betamethasone valerate 0.1 % topical ointment RxNorm: 361806 1 TOP BID 07/04/2018 07/13/2018 Inactive applying to skin under nose x 10 days Aricept 10 mg tablet RxNorm: 798715 Tablet(s) 1 Tablet(s) PO daily 06/25/2018 06/19/2019 Active Flonase Allergy Relief 50 mcg/actuation nasal spray,suspension RxNorm: 2670101 [place] 1 [employer] [place] NASAL BID 06/20/2018 10/17/2018 Active cyanocobalamin (vit B-12) 1,000 mcg/mL injection solution RxNorm: 581407 Milliliter(s) Inj 06/20/2018 06/20/2018 Inactive hydrocodone 5 mg-acetaminophen 325 mg tablet RxNorm: 055711 1-2 Tablet(s) PO Q6 as needed for pain 06/20/2018 07/17/2018 Inactive cyanocobalamin (vit B-12) 1,000 mcg/mL injection solution RxNorm: 918769 Milliliter(s) Inj 06/06/2018 06/06/2018 Inactive alprazolam 0.25 mg tablet RxNorm: 203700 1 Tablet(s) PO BID 05/25/2018 08/22/2018 Active hydrocodone 5 mg-acetaminophen 325 mg tablet RxNorm: 014945 1-2 Tablet(s) PO Q6 as needed for pain 05/24/2018 06/19/2018 Inactive cyanocobalamin (vit B-12) 1,000 mcg/mL injection solution RxNorm: 249934 Milliliter(s) Inj 05/24/2018 05/24/2018 Inactive cyanocobalamin (vit B-12) 1,000 mcg/mL injection solution RxNorm: 085409 Milliliter(s) Inj 05/09/2018 05/09/2018 Inactive Claritin 10 mg tablet RxNorm: 358309 TAKE 1 TABLET BY MOUTH ONCE DAILY 05/08/2018 05/02/2019 Active Generic For:CLARITIN 10MG 05/07/2018 9:13:47 AM cyanocobalamin (vit B-12) 1,000 mcg/mL injection solution RxNorm: 068619 INJECT ONE 1 ML EVERY TWO WEEKS 05/03/2018 04/03/2019 Active 05/03/2018 9:13:42 AM Mobic 15 mg tablet RxNorm: 991583 Tablet(s) 1 Tablet(s) PO daily 04/26/2018 04/20/2019 Active buspirone 15 mg tablet RxNorm: 213254 Tablet(s) TAKE 1 TABLET BY MOUTH TWICE DAILY 04/26/2018 04/20/2019 Active Generic For:BUSPAR 15MG 05/31/2017 9:19:20 AM Norvasc 5 mg tablet RxNorm: 295488 Tablet(s) 1 Tablet(s) PO daily 04/26/2018 04/20/2019 Active cyanocobalamin (vit B-12) 1,000 mcg/mL injection solution RxNorm: 261680 Milliliter(s) Inj 04/26/2018 04/26/2018 Inactive hydrocodone 5 mg-acetaminophen 325 mg tablet RxNorm: 187394 1-2 Tablet(s) PO Q6 as needed for pain 04/25/2018 05/23/2018 Inactive cyanocobalamin (vit B-12) 1,000 mcg/mL injection solution RxNorm: 124208 Milliliter(s) Inj 04/12/2018 04/12/2018 Inactive Topamax 25 mg tablet RxNorm: 860855 1 Tablet(s) PO BID 04/09/2018 05/02/2018 Inactive Generic For:TOPAMAX 25MG 12/06/2016 9:15:13 AM Zoloft 50 mg tablet RxNorm: 664213 TAKE 1 TABLET BY MOUTH ONCE DAILY 04/04/2018 12/29/2018 Active Generic For:ZOLOFT 50MG 04/04/2018 9:13:25 AM cyanocobalamin (vit B-12) 1,000 mcg/mL injection solution RxNorm: 355974 Milliliter(s) Inj 03/30/2018 03/30/2018 Inactive levothyroxine 125 mcg tablet RxNorm: 637030 TAKE 1 TABLET BY MOUTH EVERY DAY 03/26/2018 09/21/2018 Active Generic For:SYNTHROID 125MCG TAB 03/26/2018 9:15:59 AM liothyronine 5 mcg tablet RxNorm: 295615 TAKE 1 TABLET BY MOUTH TWICE DAILY 03/26/2018 09/21/2018 Active Generic For:CYTOMEL 5MCG 03/26/2018 9:15:54 AM hydrocodone 5 mg-acetaminophen 325 mg tablet RxNorm: 659244 1-2 Tablet(s) PO Q6 as needed for pain 03/19/2018 04/17/2018 Inactive cyanocobalamin (vit B-12) 1,000 mcg/mL injection solution RxNorm: 150898 Milliliter(s) Inj 03/16/2018 03/16/2018 Inactive Flonase Allergy Relief 50 mcg/actuation nasal spray,suspension RxNorm: 4382787 1 [employer] [place] NASAL BID 03/05/2018 06/19/2018 Inactive cyanocobalamin (vit B-12) 1,000 mcg/mL injection solution RxNorm: 313818 Milliliter(s) Inj 03/02/2018 03/02/2018 Inactive alprazolam 0.25 mg tablet RxNorm: 807380 1 Tablet(s) PO BID 02/28/2018 05/27/2018 Inactive cyanocobalamin (vit B-12) 1,000 mcg/mL injection solution RxNorm: 257065 Milliliter(s) Inj 02/08/2018 02/08/2018 Inactive cyanocobalamin (vit B-12) 1,000 mcg/mL injection solution RxNorm: 607704 Milliliter(s) Inj 01/24/2018 01/24/2018 Inactive albuterol sulfate 2.5 mg/3 mL (0.083 %) solution for nebulization RxNorm: 146028 3 Milliliter(s) INH Q6 PRN 01/24/2018 05/02/2018 Inactive Claritin 10 mg tablet RxNorm: 015603 1 Tablet(s) PO daily 01/15/2018 05/07/2018 Inactive cyanocobalamin (vit B-12) 1,000 mcg/mL injection solution RxNorm: 489316 Milliliter(s) Inj 01/10/2018 01/10/2018 Inactive hydrocodone 5 mg-acetaminophen 325 mg tablet RxNorm: 797545 1-2 Tablet(s) PO Q6 as needed for pain 01/09/2018 02/07/2018 Inactive cyanocobalamin (vit B-12) 1,000 mcg/mL injection solution RxNorm: 811350 Milliliter(s) Inj 12/27/2017 12/27/2017 Inactive cyanocobalamin (vit B-12) 1,000 mcg/mL injection solution RxNorm: 088327 1 Milliliter(s) Inj 12/12/2017 12/12/2017 Inactive Zofran ODT 4 mg disintegrating tablet RxNorm: 196201 1 Tablet(s) PO TID as needed 12/08/2017 12/09/2017 Inactive hydrocodone 2.5 mg-guaifenesin 200 mg/5 mL oral solution RxNorm: 495365 5 Milliliter(s) PO 12/04/2017 05/06/2018 Inactive doxycycline hyclate 100 mg capsule RxNorm: 2763442 1 Capsule(s) PO BID 12/04/2017 12/13/2017 Inactive cyanocobalamin (vit B-12) 1,000 mcg/mL injection solution RxNorm: 414494 Milliliter(s) Inj 12/01/2017 12/01/2017 Inactive Flonase Allergy Relief 50 mcg/actuation nasal spray,suspension RxNorm: 9801774 1 [employer] [place] NASAL BID 11/20/2017 2018 Inactive cyanocobalamin (vit B-12) 1,000 mcg/mL injection solution RxNorm: 392201 1 Milliliter(s) Inj 11/17/2017 11/17/2017 Inactive hydrocodone 5 mg-acetaminophen 325 mg tablet RxNorm: 831161 1-2 Tablet(s) PO Q6 as needed for pain 11/16/2017 12/15/2017 Inactive cyanocobalamin (vit B-12) 1,000 mcg/mL injection solution RxNorm: 165994 1 Milliliter(s) Inj 11/02/2017 11/02/2017 Inactive hydrocodone 5 mg-acetaminophen 325 mg tablet RxNorm: 527642 1-2 Tablet(s) PO Q6 as needed for pain 10/25/2017 11/15/2017 Inactive Claritin 10 mg tablet RxNorm: 158692 1 Tablet(s) PO daily 10/25/2017 11/19/2017 Inactive albuterol sulfate 2.5 mg/3 mL (0.083 %) solution for nebulization RxNorm: 992266 3 Milliliter(s) INH Q6 PRN 10/25/2017 01/23/2018 Inactive Claritin 10 mg tablet RxNorm: 427553 1 Tablet(s) PO daily 10/25/2017 10/24/2017 Inactive cyanocobalamin (vit B-12) 1,000 mcg/mL injection solution RxNorm: 294847 1 Milliliter(s) Inj 10/20/2017 10/20/2017 Inactive Zoloft 50 mg tablet RxNorm: 100482 TAKE 1 TABLET BY MOUTH ONCE DAILY 10/13/2017 04/03/2018 Inactive Generic For:ZOLOFT 50MG 10/13/2017 8:59:44 AM cyanocobalamin (vit B-12) 1,000 mcg/mL injection solution RxNorm: 592862 Milliliter(s) Inj 10/06/2017 10/06/2017 Inactive liothyronine 5 mcg tablet RxNorm: 282311 TAKE 1 TABLET BY MOUTH TWICE DAILY 10/03/2017 03/25/2018 Inactive Generic For:CYTOMEL 5MCG 10/03/2017 9:13:38 AM cyanocobalamin (vit B-12) 1,000 mcg/mL injection solution RxNorm: 224698 Milliliter(s) Inj 09/21/2017 09/21/2017 Inactive albuterol sulfate 2.5 mg/3 mL (0.083 %) solution for nebulization RxNorm: 006866 3 Milliliter(s) INH Q6 PRN 09/21/2017 10/24/2017 Inactive hydrocodone 5 mg-acetaminophen 325 mg tablet RxNorm: 020817 1-2 Tablet(s) PO Q6 as needed for pain 09/21/2017 10/20/2017 Inactive Kenalog 40 mg/mL suspension for injection RxNorm: 7118370 Milliliter(s) Inj 09/15/2017 09/15/2017 Inactive Keflex 500 mg capsule RxNorm: 167285 1 Capsule(s) PO TID 09/07/2017 09/16/2017 Inactive Please deliver to patient cyanocobalamin (vit B-12) 1,000 mcg/mL injection solution RxNorm: 139562 Milliliter(s) Inj 09/07/2017 09/07/2017 Inactive alprazolam 0.25 mg tablet RxNorm: 467435 1 Tablet(s) PO BID 09/06/2017 02/27/2018 Inactive Aricept 10 mg tablet RxNorm: 429550 1 Tablet(s) PO daily 09/06/2017 06/24/2018 Inactive hydrocodone 5 mg-acetaminophen 325 mg tablet RxNorm: 565095 1-2 Tablet(s) PO Q6 as needed for pain 08/24/2017 09/20/2017 Inactive cyanocobalamin (vit B-12) 1,000 mcg/mL injection solution RxNorm: 339101 Milliliter(s) Inj 08/24/2017 08/24/2017 Inactive Norvasc 5 mg tablet RxNorm: 166044 1 Tablet(s) PO daily 08/18/2017 04/25/2018 Inactive nystatin 100,000 unit/gram topical powder RxNorm: 905597 1 Gram(s) TOP QID 08/17/2017 08/26/2017 Inactive hydrocodone 5 mg-acetaminophen 325 mg tablet RxNorm: 390863 1-2 Tablet(s) PO Q6 as needed for pain 07/25/2017 08/23/2017 Inactive Tamiflu 75 mg capsule RxNorm: 264647 1 Capsule(s) PO BID 07/24/2017 12/11/2017 Inactive nystatin 100,000 unit/gram topical powder RxNorm: 941065 1 Gram(s) TOP QID 07/14/2017 07/22/2017 Inactive levothyroxine 125 mcg tablet RxNorm: 783882 Tablet(s) 1 Tablet(s) PO daily 07/10/2017 01/05/2018 Inactive nystatin 100,000 unit/gram topical powder RxNorm: 234809 1 Gram(s) TOP QID 07/06/2017 07/13/2017 Inactive cyanocobalamin (vit B-12) 1,000 mcg/mL injection solution RxNorm: 234813 Milliliter(s) Inj 07/06/2017 07/06/2017 Inactive Kenalog 40 mg/mL suspension for injection RxNorm: 5864809 1 Milliliter(s) Inj 06/20/2017 06/20/2017 Inactive doxycycline hyclate 100 mg capsule RxNorm: 7566849 1 Capsule(s) PO BID 06/20/2017 06/26/2017 Inactive cyanocobalamin (vit B-12) 1,000 mcg/mL injection solution RxNorm: 743028 Milliliter(s) Inj 06/20/2017 06/20/2017 Inactive Keflex 500 mg capsule RxNorm: 752423 1 Capsule(s) PO TID 06/14/2017 06/23/2017 Inactive Please deliver to patient Mobic 15 mg tablet RxNorm: 891719 1 Tablet(s) PO daily 06/14/2017 04/25/2018 Inactive cyanocobalamin (vit B-12) 1,000 mcg/mL injection solution RxNorm: 258709 Milliliter(s) Inj 06/05/2017 06/05/2017 Inactive buspirone 15 mg tablet RxNorm: 917825 TAKE 1 TABLET BY MOUTH TWICE DAILY 05/31/2017 04/25/2018 Inactive Generic For:BUSPAR 15MG 05/31/2017 9:19:20 AM cyanocobalamin (vit B-12) 1,000 mcg/mL injection solution RxNorm: 603264 Milliliter(s) Inj 05/25/2017 05/25/2017 Inactive hydrocodone 5 mg-acetaminophen 325 mg tablet RxNorm: 403257 1-2 Tablet(s) PO Q6 as needed for pain 05/25/2017 06/23/2017 Inactive amiodarone 200 mg tablet RxNorm: 695189 1/2 Tablet(s) PO daily 05/22/2017 No Stop Date Active cardiology decreased to 100mg daily cyanocobalamin (vit B-12) 1,000 mcg/mL injection solution RxNorm: 343277 Milliliter(s) Inj 05/16/2017 05/16/2017 Inactive Zofran ODT 4 mg disintegrating tablet RxNorm: 492838 1 Tablet(s) PO TID as needed 05/03/2017 05/04/2017 Inactive hydrocodone 5 mg-acetaminophen 325 mg tablet RxNorm: 511043 1-2 Tablet(s) PO Q6 as needed for pain 05/01/2017 05/05/2017 Inactive cyanocobalamin (vit B-12) 1,000 mcg/mL injection solution RxNorm: 924447 1 Milliliter(s) Inj 05/01/2017 05/01/2017 Inactive cyanocobalamin (vit B-12) 1,000 mcg/mL injection solution RxNorm: 183658 INJECT ONE 1 ML EVERY TWO WEEKS 04/26/2017 12/04/2018 Active 04/26/2017 9:08:52 AM Zoloft 50 mg tablet RxNorm: 180816 Tablet(s) TAKE 1 TABLET BY MOUTH DAILY 04/25/2017 10/12/2017 Inactive Generic For:ZOLOFT 50MG cyanocobalamin (vit B-12) 1,000 mcg/mL injection solution RxNorm: 304546 Milliliter(s) Inj 04/18/2017 04/18/2017 Inactive liothyronine 5 mcg tablet RxNorm: 492178 1 Tablet(s) PO BID 04/13/2017 10/02/2017 Inactive cyanocobalamin (vit B-12) 1,000 mcg/mL injection solution RxNorm: 635997 Milliliter(s) Inj 04/06/2017 04/06/2017 Inactive hydrocodone 5 mg-acetaminophen 325 mg tablet RxNorm: 884509 1-2 Tablet(s) PO Q6 as needed for pain 04/06/2017 04/10/2017 Inactive cyanocobalamin (vit B-12) 1,000 mcg/mL injection solution RxNorm: 404414 Milliliter(s) Inj 03/22/2017 03/22/2017 Inactive alprazolam 0.25 mg tablet RxNorm: 269586 1 Tablet(s) PO BID 03/17/2017 12/11/2017 Inactive alprazolam 0.25 mg tablet RxNorm: 864957 1 Tablet(s) PO BID 03/16/2017 09/05/2017 Inactive hydrocodone 5 mg-acetaminophen 325 mg tablet RxNorm: 077306 1-2 Tablet(s) PO Q6 as needed for pain 03/09/2017 03/13/2017 Inactive cyanocobalamin (vit B-12) 1,000 mcg/mL injection solution RxNorm: 970461 Milliliter(s) Inj 03/09/2017 03/09/2017 Inactive cyanocobalamin (vit B-12) 1,000 mcg/mL injection solution RxNorm: 527066 Milliliter(s) Inj 02/23/2017 02/23/2017 Inactive cyanocobalamin (vit B-12) 1,000 mcg/mL injection solution RxNorm: 350167 Milliliter(s) Inj 02/09/2017 02/09/2017 Inactive hydrocodone 5 mg-acetaminophen 325 mg tablet RxNorm: 493941 1-2 Tablet(s) PO Q6 as needed for pain 02/08/2017 02/12/2017 Inactive Topamax 25 mg tablet RxNorm: 264534 1 Tablet(s) PO BID 01/23/2017 05/22/2017 Inactive Generic For:TOPAMAX 25MG 12/06/2016 9:15:13 AM cyanocobalamin (vit B-12) 1,000 mcg/mL injection solution RxNorm: 891454 Milliliter(s) Inj 01/23/2017 01/23/2017 Inactive cyanocobalamin (vit B-12) 1,000 mcg/mL injection solution RxNorm: 664181 Milliliter(s) Inj 01/10/2017 01/10/2017 Inactive hydrocodone 5 mg-acetaminophen 325 mg tablet RxNorm: 959379 1-2 Tablet(s) PO Q6 as needed for pain 01/09/2017 01/13/2017 Inactive cyanocobalamin (vit B-12) 1,000 mcg/mL injection solution RxNorm: 077288 1 Milliliter(s) Inj 12/28/2016 12/28/2016 Inactive cyanocobalamin (vit B-12) 1,000 mcg/mL injection solution RxNorm: 714755 Milliliter(s) Inj 12/14/2016 12/14/2016 Inactive buspirone 15 mg tablet RxNorm: 889173 1 Tablet(s) PO BID 12/12/2016 05/30/2017 Inactive hydrocodone 5 mg-acetaminophen 325 mg tablet RxNorm: 126701 1-2 Tablet(s) PO Q6 as needed for pain 12/08/2016 12/12/2016 Inactive Topamax 25 mg tablet RxNorm: 521416 TAKE 1 TABLET BY MOUTH EVERY DAY AT BEDTIME 12/06/2016 01/22/2017 Inactive Generic For:TOPAMAX 25MG 12/06/2016 9:15:13 AM Lac-Hydrin Five 5 % lotion RxNorm: 875707 1 Gram(s) TOP daily 12/02/2016 05/02/2018 Inactive cyanocobalamin (vit B-12) 1,000 mcg/mL injection solution RxNorm: 991162 Milliliter(s) Inj 11/24/2016 11/24/2016 Inactive Ceftin 500 mg tablet RxNorm: 379514 1 Tablet(s) PO BID 11/11/2016 06/13/2017 Inactive Cipro 500 mg tablet RxNorm: 826610 1 Tablet(s) PO BID 11/11/2016 11/10/2016 Inactive Cipro 500 mg tablet RxNorm: 242504 1 Tablet(s) PO BID 11/11/2016 11/11/2016 Inactive cyanocobalamin (vit B-12) 1,000 mcg/mL injection solution RxNorm: 748405 1 Milliliter(s) Inj 11/07/2016 11/07/2016 Inactive hydrocodone 5 mg-acetaminophen 325 mg tablet RxNorm: 279373 1-2 Tablet(s) PO Q6 as needed for pain 11/02/2016 11/06/2016 Inactive cyanocobalamin (vit B-12) 1,000 mcg/mL injection solution RxNorm: 584094 Milliliter(s) Inj 10/24/2016 10/24/2016 Inactive levothyroxine 125 mcg tablet RxNorm: 717395 Tablet(s) 1 Tablet(s) PO daily 10/24/2016 04/21/2017 Inactive liothyronine 5 mcg tablet RxNorm: 944812 1 Tablet(s) PO BID 10/24/2016 04/12/2017 Inactive hydrocodone 5 mg-acetaminophen 325 mg tablet RxNorm: 604554 1-2 Tablet(s) PO Q6 as needed for pain 10/17/2016 10/21/2016 Inactive Keflex 500 mg capsule RxNorm: 445491 1 Capsule(s) PO TID 10/07/2016 10/06/2016 Inactive Keflex 500 mg capsule RxNorm: 178078 1 Capsule(s) PO TID 10/07/2016 10/16/2016 Inactive Please deliver to patient cyanocobalamin (vit B-12) 1,000 mcg/mL injection solution RxNorm: 058413 1 Milliliter(s) Inj 09/29/2016 09/29/2016 Inactive alprazolam 0.25 mg tablet RxNorm: 174257 1 Tablet(s) PO BID 09/20/2016 03/16/2017 Inactive Cozaar 100 mg tablet RxNorm: 121008 1 Tablet(s) PO daily 09/14/2016 No Stop Date Active metoprolol tartrate 50 mg tablet RxNorm: 799521 1/2 Tablet(s) PO BID 09/14/2016 12/12/2016 Inactive Zoloft 50 mg tablet RxNorm: 313907 Tablet(s) TAKE 1 TABLET BY MOUTH DAILY 09/14/2016 03/12/2017 Inactive Generic For:ZOLOFT 50MG liothyronine 5 mcg tablet RxNorm: 673776 1 Tablet(s) PO BID 09/14/2016 10/23/2016 Inactive Calmoseptine 0.44 %-20.6 % topical ointment RxNorm: 740974 1 Application TOP BID and as needed to sore on buttocks 09/07/2016 No Stop Date Active cyanocobalamin (vit B-12) 1,000 mcg/mL injection solution RxNorm: 308944 Milliliter(s) Inj 08/29/2016 08/29/2016 Inactive hydrocodone 5 mg-acetaminophen 325 mg tablet RxNorm: 153174 1-2 Tablet(s) PO Q6 as needed for pain 08/29/2016 10/16/2016 Inactive levothyroxine 125 mcg tablet RxNorm: 842069 1 Tablet(s) PO daily 08/25/2016 10/23/2016 Inactive Topamax 25 mg tablet RxNorm: 457114 TAKE 1 TABLET BY MOUTH EVERY DAY AT BEDTIME 08/17/2016 12/05/2016 Inactive Generic For:TOPAMAX 25MG 08/17/2016 2:14:37 PM hydrocodone 5 mg-acetaminophen 325 mg tablet RxNorm: 216700 1-2 Tablet(s) PO Q6 as needed for pain 08/11/2016 08/28/2016 Inactive hydrocodone 5 mg-acetaminophen 325 mg tablet RxNorm: 963935 1 -2 Tablet(s) PO Q6 as needed for pain 08/11/2016 08/18/2016 Inactive hydrocodone 5 mg-acetaminophen 325 mg tablet RxNorm: 434055 1 Tablet(s) PO Q6 as needed for pain 08/05/2016 08/10/2016 Inactive cyanocobalamin (vit B-12) 1,000 mcg/mL injection solution RxNorm: 169803 Milliliter(s) Inj 08/04/2016 08/04/2016 Inactive Norvasc 10 mg tablet RxNorm: 725405 1 Tablet(s) PO daily 07/26/2016 07/20/2017 Inactive alprazolam 0.25 mg tablet RxNorm: 794916 1 Tablet(s) PO QHS 07/21/2016 09/19/2016 Inactive Norvasc 5 mg tablet RxNorm: 793095 1 Tablet(s) PO daily 07/21/2016 07/25/2016 Inactive levothyroxine 125 mcg tablet RxNorm: 280797 1 Tablet(s) PO daily 07/21/2016 12/11/2017 Inactive cyanocobalamin (vit B-12) 1,000 mcg/mL injection solution RxNorm: 577332 Milliliter(s) Inj 07/21/2016 07/21/2016 Inactive Zoloft 50 mg tablet RxNorm: 809273 Tablet(s) TAKE 1 TABLET BY MOUTH DAILY 07/21/2016 09/13/2016 Inactive Generic For:ZOLOFT 50MG cyanocobalamin (vit B-12) 1,000 mcg/mL injection solution RxNorm: 640792 1 Milliliter(s) Inj 07/05/2016 07/05/2016 Inactive cyanocobalamin (vit B-12) 1,000 mcg/mL injection solution RxNorm: 684820 1 Milliliter(s) Inj 06/22/2016 06/22/2016 Inactive cyanocobalamin (vit B-12) 1,000 mcg/mL injection solution RxNorm: 248575 Milliliter(s) Inj 06/09/2016 06/09/2016 Inactive Aricept 10 mg tablet RxNorm: 476518 1 Tablet(s) PO daily 05/27/2016 05/21/2017 Inactive Mobic 15 mg tablet RxNorm: 708877 1 Tablet(s) PO daily 05/27/2016 05/21/2017 Inactive levothyroxine 125 mcg tablet RxNorm: 023347 1 Tablet(s) PO daily 05/25/2016 07/20/2016 Inactive cyanocobalamin (vit B-12) 1,000 mcg/mL injection solution RxNorm: 902458 1 Milliliter(s) Inj 05/25/2016 05/25/2016 Inactive doxycycline hyclate 100 mg capsule RxNorm: 5608626 1 Capsule(s) PO BID 05/16/2016 05/15/2016 Inactive doxycycline hyclate 100 mg capsule RxNorm: 6196413 1 Capsule(s) PO BID 05/16/2016 05/22/2016 Inactive cyanocobalamin (vit B-12) 1,000 mcg/mL injection solution RxNorm: 191172 Milliliter(s) Inj 05/10/2016 05/10/2016 Inactive cyanocobalamin (vit B-12) 1,000 mcg/mL injection solution RxNorm: 077485 Milliliter(s) Inj 04/26/2016 04/26/2016 Inactive Topamax 25 mg tablet RxNorm: 001339 1 Tablet(s) PO QPM 04/22/2016 08/16/2016 Inactive cyanocobalamin (vit B-12) 1,000 mcg/mL injection solution RxNorm: 087891 Milliliter(s) 1 Milliliter(s) Inj [id number] 04/11/2016 12/31/2017 Inactive liothyronine 5 mcg tablet RxNorm: 083237 1 Tablet(s) PO BID 04/11/2016 09/13/2016 Inactive cyanocobalamin (vit B-12) 1,000 mcg/mL injection solution RxNorm: 268012 Milliliter(s) Inj 04/11/2016 04/11/2016 Inactive cyanocobalamin (vit B-12) 1,000 mcg/mL injection solution RxNorm: 995821 Milliliter(s) Inj 03/31/2016 03/31/2016 Inactive cyanocobalamin (vit B-12) 1,000 mcg/mL injection solution RxNorm: 046153 1 Milliliter(s) Inj 03/15/2016 03/15/2016 Inactive levothyroxine 125 mcg tablet RxNorm: 370371 1 Tablet(s) PO daily 2016 03/03/2016 Inactive levothyroxine 125 mcg tablet RxNorm: 719358 1 Tablet(s) PO daily 2016 05/24/2016 Inactive cyanocobalamin (vit B-12) 1,000 mcg/mL injection solution RxNorm: 654914 Milliliter(s) Inj 02/25/2016 02/25/2016 Inactive cyanocobalamin (vit B-12) 1,000 mcg/mL injection solution RxNorm: 461742 1 Milliliter(s) Inj 02/02/2016 02/02/2016 Inactive sucralfate 1 gram tablet RxNorm: 662808 1 Tablet(s) PO QHS 01/25/2016 No Stop Date Active amiodarone 200 mg tablet RxNorm: 160171 1/2 Tablet(s) PO BID 01/25/2016 05/21/2017 Inactive cyanocobalamin (vit B-12) 1,000 mcg/mL injection solution RxNorm: 212752 Milliliter(s) Inj 01/18/2016 01/18/2016 Inactive cyanocobalamin (vit B-12) 1,000 mcg/mL injection solution RxNorm: 593429 Milliliter(s) Inj 12/29/2015 12/29/2015 Inactive Topamax 25 mg tablet RxNorm: 579732 1 Tablet(s) PO QPM 12/08/2015 04/05/2016 Inactive cyanocobalamin (vit B-12) 1,000 mcg/mL injection solution RxNorm: 776483 Milliliter(s) Inj 12/08/2015 12/08/2015 Inactive Bactrim DS 800 mg-160 mg tablet RxNorm: 214382 1 Tablet(s) PO BID 11/23/2015 11/22/2015 Inactive cyanocobalamin (vit B-12) 1,000 mcg/mL injection solution RxNorm: 605017 Milliliter(s) Inj 11/23/2015 11/23/2015 Inactive Bactrim DS 800 mg-160 mg tablet RxNorm: 517672 1 Tablet(s) PO BID 11/23/2015 11/29/2015 Inactive cyanocobalamin (vit B-12) 1,000 mcg/mL injection solution RxNorm: 932912 Milliliter(s) Inj 11/11/2015 11/11/2015 Inactive amoxicillin 500 mg capsule RxNorm: 031913 1 Capsule(s) PO TID 11/10/2015 11/19/2015 Inactive Zithromax Z-Henrique 250 mg tablet RxNorm: 746579 1 Tablet(s) PO UD 11/10/2015 01/24/2016 Inactive zpack x 1 amoxicillin 500 mg capsule RxNorm: 130424 1 Capsule(s) PO TID 11/10/2015 11/09/2015 Inactive cyanocobalamin (vit B-12) 1,000 mcg/mL injection solution RxNorm: 500541 1 Milliliter(s) Inj 10/29/2015 10/29/2015 Inactive [place] 3 capsule RxNorm: 1 Capsule(s) PO QAM , 2 Capsules at noon, 1 Capsule QHS 10/13/2015 No Stop Date Active potassium chloride ER 20 mEq tablet,extended release RxNorm: 107544 2 Tablet(s) PO daily at noon 10/13/2015 No Stop Date Active alprazolam 0.25 mg tablet RxNorm: 124453 1 Tablet(s) PO QHS 10/13/2015 07/20/2016 Inactive amiodarone 200 mg tablet RxNorm: 787876 1 Tablet(s) PO BID 10/13/2015 01/24/2016 Inactive cyanocobalamin (vit B-12) 1,000 mcg/mL injection solution RxNorm: 079616 1 Milliliter(s) Inj 10/12/2015 10/12/2015 Inactive Zofran 4 mg tablet RxNorm: 401273 1 Tablet(s) PO daily as needed 10/07/2015 05/24/2016 Inactive Zoloft 50 mg tablet RxNorm: 912939 TAKE 1 TABLET BY MOUTH DAILY 10/05/2015 05/01/2016 Inactive Generic For:ZOLOFT 50MG cyanocobalamin (vit B-12) 1,000 mcg/mL injection solution RxNorm: 546240 1 Milliliter(s) Inj 09/29/2015 09/29/2015 Inactive cyanocobalamin (vit B-12) 1,000 mcg/mL injection solution RxNorm: 014910 1 Milliliter(s) Inj 09/17/2015 09/17/2015 Inactive Norvasc 5 mg tablet RxNorm: 177076 1 Tablet(s) PO daily 09/17/2015 07/20/2016 Inactive liothyronine 5 mcg tablet RxNorm: 499967 1 Tablet(s) PO BID 09/17/2015 03/14/2016 Inactive Zoloft 50 mg tablet RxNorm: 477479 1 Tablet(s) PO daily 09/17/2015 10/04/2015 Inactive buspirone 15 mg tablet RxNorm: 414025 1 Tablet(s) PO BID 09/17/2015 09/10/2016 Inactive buspirone 15 mg tablet RxNorm: 050517 1 Tablet(s) PO BID 09/14/2015 09/16/2015 Inactive Topamax 25 mg tablet RxNorm: 815820 1 Tablet(s) PO QPM 09/03/2015 12/07/2015 Inactive cyanocobalamin (vit B-12) 1,000 mcg/mL injection solution RxNorm: 890323 1 Milliliter(s) Inj 09/03/2015 09/03/2015 Inactive cyanocobalamin (vit B-12) 1,000 mcg/mL injection solution RxNorm: 577474 Milliliter(s) Inj 08/17/2015 08/17/2015 Inactive cyanocobalamin (vit B-12) 1,000 mcg/mL injection solution RxNorm: 953421 Milliliter(s) Inj 08/06/2015 08/06/2015 Inactive levothyroxine 150 mcg tablet RxNorm: 829263 1 Tablet(s) PO daily 07/22/2015 03/03/2016 Inactive Aricept 10 mg tablet RxNorm: 155734 1 Tablet(s) PO daily 07/22/2015 05/26/2016 Inactive Mobic 15 mg tablet RxNorm: 259938 1 Tablet(s) PO daily 07/22/2015 05/26/2016 Inactive cyanocobalamin (vit B-12) 1,000 mcg/mL injection solution RxNorm: 431920 Milliliter(s) Inj 07/22/2015 07/22/2015 Inactive liothyronine 5 mcg tablet RxNorm: 413649 1 Tablet(s) PO BID 07/22/2015 09/16/2015 Inactive cyanocobalamin (vit B-12) 1,000 mcg/mL injection solution RxNorm: 592479 Milliliter(s) Inj 07/08/2015 07/08/2015 Inactive cyanocobalamin (vit B-12) 1,000 mcg/mL injection solution RxNorm: 921638 Milliliter(s) Inj 06/23/2015 06/23/2015 Inactive cyanocobalamin (vit B-12) 1,000 mcg/mL injection solution RxNorm: 370257 1 Milliliter(s) Inj 06/08/2015 06/08/2015 Inactive cyanocobalamin (vit B-12) 1,000 mcg/mL injection solution RxNorm: 156009 Milliliter(s) Inj 05/27/2015 05/27/2015 Inactive Aricept 10 mg tablet RxNorm: 219670 1 Tablet(s) PO daily 05/20/2015 07/21/2015 Inactive Zofran 4 mg tablet RxNorm: 605074 1 Tablet(s) PO daily as needed 05/20/2015 06/18/2015 Inactive alprazolam 0.25 mg tablet RxNorm: 355860 1 Tablet(s) PO BID 05/20/2015 10/12/2015 Inactive Mobic 15 mg tablet RxNorm: 193448 1 Tablet(s) PO daily 05/20/2015 07/21/2015 Inactive tramadol ER 100 mg tablet,extended release 24 hr RxNorm: 345001 1 Tablet(s) PO Q6 as needed 05/13/2015 No Stop Date Active cyanocobalamin (vit B-12) 1,000 mcg/mL injection solution RxNorm: 432791 1 Milliliter(s) Inj 05/12/2015 05/12/2015 Inactive Topamax 25 mg tablet RxNorm: 651561 1 Tablet(s) PO BID (start at one pill at bedtime x 1week then twice daily thereafter) 05/12/2015 09/02/2015 Inactive cyanocobalamin (vit B-12) 1,000 mcg/mL injection kit RxNorm: 928890 kit Inj 04/30/2015 04/30/2015 Inactive cyanocobalamin (vit B-12) 1,000 mcg/mL injection solution RxNorm: 451172 Milliliter(s) Inj 04/16/2015 04/16/2015 Inactive levothyroxine 150 mcg tablet RxNorm: 344776 1 Tablet(s) PO daily 04/08/2015 07/21/2015 Inactive cyanocobalamin (vit B-12) 1,000 mcg/mL injection solution RxNorm: 203245 Milliliter(s) 1 Milliliter(s) Inj Q2nbiip 04/08/2015 04/10/2016 Inactive Cytomel 5 mcg tablet RxNorm: 739935 1 Tablet(s) PO BID 04/08/2015 10/12/2015 Inactive Cytomel 5 mcg tablet RxNorm: 619398 1 Tablet(s) PO BID 04/07/2015 04/07/2015 Inactive Cytomel 5 mcg tablet RxNorm: 595301 1 Tablet(s) PO BID 04/07/2015 04/06/2015 Inactive cyanocobalamin (vit B-12) 1,000 mcg/mL injection solution RxNorm: 106009 Milliliter(s) Inj 04/02/2015 04/02/2015 Inactive cyanocobalamin (vit B-12) 1,000 mcg/mL injection solution RxNorm: 217747 Milliliter(s) Inj 03/18/2015 03/18/2015 Inactive cyanocobalamin (vit B-12) 1,000 mcg/mL injection solution RxNorm: 203645 Milliliter(s) 1 Milliliter(s) Inj C1qsgej 03/18/2015 04/07/2015 Inactive cyanocobalamin (vit B-12) 1,000 mcg/mL injection solution RxNorm: 151234 1 Milliliter(s) Inj J4sabis 03/16/2015 03/17/2015 Inactive cyanocobalamin (vit B-12) 1,000 mcg/mL injection solution RxNorm: 585437 Milliliter(s) Inj 03/03/2015 03/03/2015 Inactive cyanocobalamin (vit B-12) 1,000 mcg/mL injection solution RxNorm: 822716 Milliliter(s) Inj 02/18/2015 02/18/2015 Inactive cyanocobalamin (vit B-12) 1,000 mcg/mL injection solution RxNorm: 329760 Milliliter(s) Inj 02/04/2015 02/04/2015 Inactive cyanocobalamin (vit B-12) 1,000 mcg/mL injection solution RxNorm: 855204 Milliliter(s) Inj 01/22/2015 01/22/2015 Inactive Lac-Hydrin Five 5 % lotion RxNorm: 923773 1 TOP daily 01/13/2015 03/13/2015 Inactive Lac-Hydrin Five 5 % lotion RxNorm: 150191 1 TOP daily 01/13/2015 01/12/2015 Inactive cyanocobalamin (vit B-12) 1,000 mcg/mL injection solution RxNorm: 840055 Milliliter(s) Inj 01/08/2015 01/08/2015 Inactive cyanocobalamin (vit B-12) 1,000 mcg/mL injection solution RxNorm: 045057 Milliliter(s) Inj 12/25/2014 12/25/2014 Inactive levothyroxine 150 mcg tablet RxNorm: 608476 1 Tablet(s) PO daily 12/24/2014 04/07/2015 Inactive tramadol 50 mg tablet RxNorm: 478617 1-2 Tablet(s) PO Q6 as needed 12/17/2014 05/12/2015 Inactive alprazolam 0.25 mg tablet RxNorm: 819213 1 Tablet(s) PO BID 12/17/2014 04/15/2015 Inactive Pradaxa 150 mg capsule RxNorm: 9192047 1 Capsule(s) PO BID 12/16/2014 No Stop Date Active metoprolol tartrate 50 mg tablet RxNorm: 457332 1/2 Tablet(s) PO BID 12/16/2014 09/13/2016 Inactive buspirone 15 mg tablet RxNorm: 551447 1 Tablet(s) PO BID 12/16/2014 09/13/2015 Inactive cyanocobalamin (vit B-12) 1,000 mcg/mL injection solution RxNorm: 043715 1 Milliliter(s) Inj T5ezomx 12/16/2014 03/15/2015 Inactive cyanocobalamin (vit B-12) 1,000 mcg/mL injection solution RxNorm: 529531 1 Milliliter(s) Inj W7qbrzi 12/16/2014 12/15/2014 Inactive sucralfate 1 gram tablet RxNorm: 215501 Tablet(s) PO QID 12/16/2014 12/10/2015 Inactive cyanocobalamin (vit B-12) 1,000 mcg/mL injection solution RxNorm: 119531 Milliliter(s) Inj 12/10/2014 12/10/2014 Inactive cyanocobalamin (vit B-12) 1,000 mcg/mL injection solution RxNorm: 891343 Milliliter(s) Inj 11/26/2014 11/26/2014 Inactive Zoloft 50 mg tablet RxNorm: 751919 1 Tablet(s) PO daily 11/24/2014 06/21/2015 Inactive Zoloft 50 mg tablet RxNorm: 937788 1 Tablet(s) PO daily 11/24/2014 11/23/2014 Inactive cyanocobalamin (vit B-12) 1,000 mcg/mL injection kit RxNorm: 505511 Milliliter(s) Inj 11/12/2014 11/12/2014 Inactive cyanocobalamin (vit B-12) 1,000 mcg/mL injection solution RxNorm: 500186 Milliliter(s) Inj 10/28/2014 10/28/2014 Inactive [SAVINGS FOR NON-COVERED DRUGS -- BIN:[id number], PCN: [id number], Group: [id number], ID# [id number], Questions: . THIS IS NOT INSURANCE.] promethazine oral RxNorm: 8745 oral No Start Date Active digoxin 125 mcg tablet RxNorm: 819903 Tablet(s) PO every other day No Start Date Active furosemide 40 mg tablet RxNorm: 627114 1 Tablet(s) PO daily No Start Date Active Vitamin D3 5,000 unit tablet RxNorm: 946512 1 Tablet(s) PO daily No Start Date Active erythromycin 250 mg capsule,delayed release RxNorm: 465987 1 Capsule(s) PO AC No Start Date Active Protonix 40 mg tablet,delayed release RxNorm: 041855 1 Tablet(s) PO BID No Start Date Active Cozaar 100 mg tablet RxNorm: 480344 1 Tablet(s) PO daily No Start Date 09/13/2016 Inactive sucralfate 1 gram tablet RxNorm: 594029 Tablet(s) PO QID No Start Date 12/15/2014 Inactive amiodarone 200 mg tablet RxNorm: 448668 2 Tablet(s) PO daily No Start Date 10/13/2015 Inactive buspirone 15 mg tablet RxNorm: 098281 1 Tablet(s) PO daily No Start Date 12/15/2014 Inactive potassium chloride ER 20 mEq tablet,extended release RxNorm: 606391 1 Tablet(s) PO daily No Start Date 10/12/2015 Inactive Prilosec 40 mg capsule,delayed release RxNorm: 886282 1 Capsule(s) PO daily No Start Date 09/02/2015 Inactive [place] 3 capsule RxNorm: Capsule(s) PO No Start Date 10/12/2015 Inactive alprazolam 0.25 mg tablet RxNorm: 115714 Tablet(s) PO QHS No Start Date 12/16/2014 Inactive levothyroxine 125 mcg tablet RxNorm: 824407 1 Tablet(s) PO daily No Start Date 12/23/2014 Inactive liothyronine 5 mcg tablet RxNorm: 190884 1 Tablet(s) PO BID No Start Date 07/21/2015 Inactive Mobic 15 mg tablet RxNorm: 990408 Tablet(s) PO daily No Start Date 05/19/2015 Inactive Norvasc 5 mg tablet RxNorm: 115742 1 Tablet(s) PO daily No Start Date 09/16/2015 Inactive Zofran 4 mg tablet RxNorm: 216778 1 Tablet(s) PO daily as needed No Start Date 05/19/2015 Inactive Tamiflu 75 mg capsule RxNorm: 829379 1 Capsule(s) PO BID No Start Date 07/23/2017 Inactive tramadol 50 mg tablet RxNorm: 092518 1 Tablet(s) PO daily as needed No Start Date 12/16/2014 Inactive amiodarone 200 mg tablet RxNorm: 447413 1 Tablet(s) PO daily No Start Date 10/12/2015 Inactive Zofran ODT 4 mg disintegrating tablet RxNorm: 765740 1 Tablet(s) PO TID as needed No Start Date 05/02/2017 Inactive albuterol sulfate 2.5 mg/3 mL (0.083 %) solution for nebulization RxNorm: 221522 3 Milliliter(s) INH Q6 PRN No Start Date 09/20/2017 Inactive meclizine 25 mg tablet RxNorm: 543294 Tablet(s) PO as needed No Start Date 05/24/2016 Inactive Pradaxa 150 mg capsule RxNorm: 7446921 1 Capsule(s) PO daily No Start Date 12/15/2014 Inactive metoprolol tartrate 50 mg tablet RxNorm: 259104 1/2 Tablet(s) PO No Start Date 12/15/2014 Inactive Aricept 10 mg tablet RxNorm: 371751 Tablet(s) PO daily No Start Date 05/19/2015 Inactive Calmoseptine 0.44 %-20.6 % topical ointment RxNorm: 400755 1 Application TOP BID and as needed to sore on buttocks No Start Date 09/06/2016 Inactive Zithromax Z-Henrique 250 mg tablet RxNorm: 572948 1 Tablet(s) PO UD No Start Date 11/09/2015 Inactive zpack x 1 Medication Administered Medication Codes Instructions Start Date Status cyanocobalamin (vit B-12) 1,000 mcg/mL injection solution RxNorm: 375501 Milliliter 08/01/2018 Active cyanocobalamin (vit B-12) 1,000 mcg/mL injection solution RxNorm: 152368 Milliliter 07/19/2018 No longer Active cyanocobalamin (vit B-12) 1,000 mcg/mL injection solution RxNorm: 594557 Milliliter 07/04/2018 No longer Active cyanocobalamin (vit B-12) 1,000 mcg/mL injection solution RxNorm: 177248 Milliliter 06/20/2018 No longer Active cyanocobalamin (vit B-12) 1,000 mcg/mL injection solution RxNorm: 351237 Milliliter 06/06/2018 No longer Active cyanocobalamin (vit B-12) 1,000 mcg/mL injection solution RxNorm: 067684 Milliliter 05/24/2018 No longer Active cyanocobalamin (vit B-12) 1,000 mcg/mL injection solution RxNorm: 127764 Milliliter 05/09/2018 No longer Active cyanocobalamin (vit B-12) 1,000 mcg/mL injection solution RxNorm: 820797 Milliliter 04/26/2018 No longer Active cyanocobalamin (vit B-12) 1,000 mcg/mL injection solution RxNorm: 172206 Milliliter 04/12/2018 No longer Active cyanocobalamin (vit B-12) 1,000 mcg/mL injection solution RxNorm: 778052 Milliliter 03/30/2018 No longer Active cyanocobalamin (vit B-12) 1,000 mcg/mL injection solution RxNorm: 922849 Milliliter 03/16/2018 No longer Active cyanocobalamin (vit B-12) 1,000 mcg/mL injection solution RxNorm: 709556 Milliliter 03/02/2018 No longer Active cyanocobalamin (vit B-12) 1,000 mcg/mL injection solution RxNorm: 672387 Milliliter 02/08/2018 No longer Active cyanocobalamin (vit B-12) 1,000 mcg/mL injection solution RxNorm: 719211 Milliliter 01/24/2018 No longer Active cyanocobalamin (vit B-12) 1,000 mcg/mL injection solution RxNorm: 629744 Milliliter 01/10/2018 No longer Active cyanocobalamin (vit B-12) 1,000 mcg/mL injection solution RxNorm: 570326 Milliliter 12/27/2017 No longer Active cyanocobalamin (vit B-12) 1,000 mcg/mL injection solution RxNorm: 672340 1Milliliter 12/12/2017 No longer Active cyanocobalamin (vit B-12) 1,000 mcg/mL injection solution RxNorm: 618844 Milliliter 12/01/2017 No longer Active cyanocobalamin (vit B-12) 1,000 mcg/mL injection solution RxNorm: 603562 1Milliliter 11/17/2017 No longer Active cyanocobalamin (vit B-12) 1,000 mcg/mL injection solution RxNorm: 055329 1Milliliter 11/02/2017 No longer Active cyanocobalamin (vit B-12) 1,000 mcg/mL injection solution RxNorm: 762258 1Milliliter 10/20/2017 No longer Active cyanocobalamin (vit B-12) 1,000 mcg/mL injection solution RxNorm: 289265 Milliliter 10/06/2017 No longer Active cyanocobalamin (vit B-12) 1,000 mcg/mL injection solution RxNorm: 679298 Milliliter 09/21/2017 No longer Active Kenalog 40 mg/mL suspension for injection RxNorm: 8018776 Milliliter 09/15/2017 No longer Active cyanocobalamin (vit B-12) 1,000 mcg/mL injection solution RxNorm: 893598 Milliliter 09/07/2017 No longer Active cyanocobalamin (vit B-12) 1,000 mcg/mL injection solution RxNorm: 279366 Milliliter 08/24/2017 No longer Active cyanocobalamin (vit B-12) 1,000 mcg/mL injection solution RxNorm: 652346 Milliliter 07/06/2017 No longer Active cyanocobalamin (vit B-12) 1,000 mcg/mL injection solution RxNorm: 971642 Milliliter 06/20/2017 No longer Active Kenalog 40 mg/mL suspension for injection RxNorm: 4149527 1Milliliter 06/20/2017 No longer Active cyanocobalamin (vit B-12) 1,000 mcg/mL injection solution RxNorm: 693817 Milliliter 06/05/2017 No longer Active cyanocobalamin (vit B-12) 1,000 mcg/mL injection solution RxNorm: 791690 Milliliter 05/25/2017 No longer Active cyanocobalamin (vit B-12) 1,000 mcg/mL injection solution RxNorm: 779283 Milliliter 05/16/2017 No longer Active cyanocobalamin (vit B-12) 1,000 mcg/mL injection solution RxNorm: 100164 1Milliliter 05/01/2017 No longer Active cyanocobalamin (vit B-12) 1,000 mcg/mL injection solution RxNorm: 081528 Milliliter 04/18/2017 No longer Active cyanocobalamin (vit B-12) 1,000 mcg/mL injection solution RxNorm: 674732 Milliliter 04/06/2017 No longer Active cyanocobalamin (vit B-12) 1,000 mcg/mL injection solution RxNorm: 240512 Milliliter 03/22/2017 No longer Active cyanocobalamin (vit B-12) 1,000 mcg/mL injection solution RxNorm: 083530 Milliliter 03/09/2017 No longer Active cyanocobalamin (vit B-12) 1,000 mcg/mL injection solution RxNorm: 625888 Milliliter 02/23/2017 No longer Active cyanocobalamin (vit B-12) 1,000 mcg/mL injection solution RxNorm: 850439 Milliliter 02/09/2017 No longer Active cyanocobalamin (vit B-12) 1,000 mcg/mL injection solution RxNorm: 720980 Milliliter 01/23/2017 No longer Active cyanocobalamin (vit B-12) 1,000 mcg/mL injection solution RxNorm: 704093 Milliliter 01/10/2017 No longer Active cyanocobalamin (vit B-12) 1,000 mcg/mL injection solution RxNorm: 042396 1Milliliter 12/28/2016 No longer Active cyanocobalamin (vit B-12) 1,000 mcg/mL injection solution RxNorm: 265610 Milliliter 12/14/2016 No longer Active cyanocobalamin (vit B-12) 1,000 mcg/mL injection solution RxNorm: 996824 Milliliter 11/24/2016 No longer Active cyanocobalamin (vit B-12) 1,000 mcg/mL injection solution RxNorm: 180435 1Milliliter 11/07/2016 No longer Active cyanocobalamin (vit B-12) 1,000 mcg/mL injection solution RxNorm: 259551 Milliliter 10/24/2016 No longer Active cyanocobalamin (vit B-12) 1,000 mcg/mL injection solution RxNorm: 929720 1Milliliter 09/29/2016 No longer Active cyanocobalamin (vit B-12) 1,000 mcg/mL injection solution RxNorm: 338726 Milliliter 08/29/2016 No longer Active cyanocobalamin (vit B-12) 1,000 mcg/mL injection solution RxNorm: 954877 Milliliter 08/04/2016 No longer Active cyanocobalamin (vit B-12) 1,000 mcg/mL injection solution RxNorm: 046814 Milliliter 07/21/2016 No longer Active cyanocobalamin (vit B-12) 1,000 mcg/mL injection solution RxNorm: 493668 1Milliliter 07/05/2016 No longer Active cyanocobalamin (vit B-12) 1,000 mcg/mL injection solution RxNorm: 010317 1Milliliter 06/22/2016 No longer Active cyanocobalamin (vit B-12) 1,000 mcg/mL injection solution RxNorm: 619071 Milliliter 06/09/2016 No longer Active cyanocobalamin (vit B-12) 1,000 mcg/mL injection solution RxNorm: 274525 1Milliliter 05/25/2016 No longer Active cyanocobalamin (vit B-12) 1,000 mcg/mL injection solution RxNorm: 061694 Milliliter 05/10/2016 No longer Active cyanocobalamin (vit B-12) 1,000 mcg/mL injection solution RxNorm: 806605 Milliliter 04/26/2016 No longer Active cyanocobalamin (vit B-12) 1,000 mcg/mL injection solution RxNorm: 260035 Milliliter 04/11/2016 No longer Active cyanocobalamin (vit B-12) 1,000 mcg/mL injection solution RxNorm: 470419 Milliliter 03/31/2016 No longer Active cyanocobalamin (vit B-12) 1,000 mcg/mL injection solution RxNorm: 714351 1Milliliter 03/15/2016 No longer Active cyanocobalamin (vit B-12) 1,000 mcg/mL injection solution RxNorm: 577297 Milliliter 02/25/2016 No longer Active cyanocobalamin (vit B-12) 1,000 mcg/mL injection solution RxNorm: 258272 1Milliliter 02/02/2016 No longer Active cyanocobalamin (vit B-12) 1,000 mcg/mL injection solution RxNorm: 646543 Milliliter 01/18/2016 No longer Active cyanocobalamin (vit B-12) 1,000 mcg/mL injection solution RxNorm: 370773 Milliliter 12/29/2015 No longer Active cyanocobalamin (vit B-12) 1,000 mcg/mL injection solution RxNorm: 143408 Milliliter 12/08/2015 No longer Active cyanocobalamin (vit B-12) 1,000 mcg/mL injection solution RxNorm: 845898 Milliliter 11/23/2015 No longer Active cyanocobalamin (vit B-12) 1,000 mcg/mL injection solution RxNorm: 443874 Milliliter 11/11/2015 No longer Active cyanocobalamin (vit B-12) 1,000 mcg/mL injection solution RxNorm: 391277 1Milliliter 10/29/2015 No longer Active cyanocobalamin (vit B-12) 1,000 mcg/mL injection solution RxNorm: 824355 1Milliliter 10/12/2015 No longer Active cyanocobalamin (vit B-12) 1,000 mcg/mL injection solution RxNorm: 488234 1Milliliter 09/29/2015 No longer Active cyanocobalamin (vit B-12) 1,000 mcg/mL injection solution RxNorm: 004124 1Milliliter 09/17/2015 No longer Active cyanocobalamin (vit B-12) 1,000 mcg/mL injection solution RxNorm: 137007 1Milliliter 09/03/2015 No longer Active cyanocobalamin (vit B-12) 1,000 mcg/mL injection solution RxNorm: 184681 Milliliter 08/17/2015 No longer Active cyanocobalamin (vit B-12) 1,000 mcg/mL injection solution RxNorm: 915158 Milliliter 08/06/2015 No longer Active cyanocobalamin (vit B-12) 1,000 mcg/mL injection solution RxNorm: 659526 Milliliter 07/22/2015 No longer Active cyanocobalamin (vit B-12) 1,000 mcg/mL injection solution RxNorm: 597620 Milliliter 07/08/2015 No longer Active cyanocobalamin (vit B-12) 1,000 mcg/mL injection solution RxNorm: 323187 Milliliter 06/23/2015 No longer Active cyanocobalamin (vit B-12) 1,000 mcg/mL injection solution RxNorm: 733790 1Milliliter 06/08/2015 No longer Active cyanocobalamin (vit B-12) 1,000 mcg/mL injection solution RxNorm: 480328 Milliliter 05/27/2015 No longer Active cyanocobalamin (vit B-12) 1,000 mcg/mL injection solution RxNorm: 569927 1Milliliter 05/12/2015 No longer Active cyanocobalamin (vit B-12) 1,000 mcg/mL injection kit RxNorm: 031391 kit 04/30/2015 No longer Active cyanocobalamin (vit B-12) 1,000 mcg/mL injection solution RxNorm: 838072 Milliliter 04/16/2015 No longer Active cyanocobalamin (vit B-12) 1,000 mcg/mL injection solution RxNorm: 818062 Milliliter 04/02/2015 No longer Active cyanocobalamin (vit B-12) 1,000 mcg/mL injection solution RxNorm: 113290 Milliliter 03/18/2015 No longer Active cyanocobalamin (vit B-12) 1,000 mcg/mL injection solution RxNorm: 930081 Milliliter 03/03/2015 No longer Active cyanocobalamin (vit B-12) 1,000 mcg/mL injection solution RxNorm: 285157 Milliliter 02/18/2015 No longer Active cyanocobalamin (vit B-12) 1,000 mcg/mL injection solution RxNorm: 943200 Milliliter 02/04/2015 No longer Active cyanocobalamin (vit B-12) 1,000 mcg/mL injection solution RxNorm: 408924 Milliliter 01/22/2015 No longer Active cyanocobalamin (vit B-12) 1,000 mcg/mL injection solution RxNorm: 375152 Milliliter 01/08/2015 No longer Active cyanocobalamin (vit B-12) 1,000 mcg/mL injection solution RxNorm: 745153 Milliliter 12/25/2014 No longer Active cyanocobalamin (vit B-12) 1,000 mcg/mL injection solution RxNorm: 005451 Milliliter 12/10/2014 No longer Active cyanocobalamin (vit B-12) 1,000 mcg/mL injection solution RxNorm: 203965 Milliliter 11/26/2014 No longer Active cyanocobalamin (vit B-12) 1,000 mcg/mL injection kit RxNorm: 399071 Milliliter 11/12/2014 No longer Active cyanocobalamin (vit B-12) 1,000 mcg/mL injection solution RxNorm: 740641 Milliliter 10/28/2014 No longer Active Immunizations Vaccine [...] (3rd IS) 3.20 uIU/mL 02/26/2018 Free T4 Xtx407 FREE T4 0.99 ng/dL 02/26/2018 Cbc With [...] 28.5 pg 02/26/2018 Cbc With Differential Ord2 [place]% 10.3 % 02/26/2018 Cbc With Differential Ord2 [...] 1.80 K/ul 02/26/2018 Cbc With Differential Ord2 [place] ABS# 0.7 K/ul 02/26/2018 Cbc With Differential Ord2 Eos ABS# 0.2 K/ul 02/26/2018 Cbc With Differential Ord2 Baso ABS# 0.0 K/ul 02/26/2018 B12 Oct505 B12 889.00 pg/ml 02/26/2018 Digoxin Ord9 DIGOXIN 0.7 NG/ML 11/23/2017 Comp Metabolic Hvo262 NA 142 mEq/L 11/23/2017 Comp Metabolic Mnv260 K 4.9 mEq/L 11/23/2017 Comp Metabolic Qxh720 CL 112 mEq/L 11/23/2017 Comp Metabolic Qtg337 CO2 18.0 mEq/L 11/23/2017 Comp Metabolic Zpn934 ANION GAP 17 11/23/2017 Comp Metabolic Wgw467 GLUCOSE 123 mg/dL 11/23/2017 Comp Metabolic Huk082 Creat 1.0 mg/dL 11/23/2017 Comp Metabolic Zmv984 eGFR 59 ml/min/1.73m2 11/23/2017 Comp Metabolic Zdg067 BUN 24 mg/dL 11/23/2017 Comp Metabolic Veg293 B/C Ratio 25.0 Ratio 11/23/2017 Comp Metabolic Otv139 CALCIUM 9.4 mg/dL 11/23/2017 Comp Metabolic Ijr170 ALK PHOS 56 U/L 11/23/2017 Comp Metabolic Oga040 AST(SGOT) 17 U/L 11/23/2017 Comp Metabolic Suf813 ALT(SGPT) 16 U/L 11/23/2017 Comp Metabolic Qir104 BILI T 0.7 mg/dL 11/23/2017 Comp Metabolic Smy496 ALBUMIN 3.8 g/dL 11/23/2017 Comp Metabolic Sem610 TPRO 6.2 g/dL 11/23/2017 Comp Metabolic Mon805 GLOB 2.4 g/dL 11/23/2017 Comp Metabolic Sub865 A/G Ratio 1.6 Ratio 11/23/2017 Comp Metabolic Feh695 Osmo 289 mOsmo 11/23/2017 Free T4 Vql329 FREE T4 1.04 ng/dL 11/23/2017 %Hba1C Zkx152 % HbA1c 85831- 6 6.4 % 11/23/2017 %Hba1C Puu131 Gluc Ave 137 mg/dL 11/23/2017 Lipid Ord30 CHOL 179 mg/dL 11/23/2017 Lipid Ord30 HDL 51.0 mg/dl 11/23/2017 Lipid Ord30 TRIG 134 mg/dL 11/23/2017 Lipid Ord30 LDL 101 mg/dL 11/23/2017 Lipid Ord30 C/HDL 3.5 Ratio 11/23/2017 Tsh Ord6 TSH (3rd IS) 1.00 uIU/mL 11/23/2017 Microalbumin Xja029 MicroAlb <0.7 mg/dL 11/23/2017 Comp Metabolic Hme780 NA 141 mEq/L 01/23/2017 Comp Metabolic Qom333 K 4.5 mEq/L 01/23/2017 Comp Metabolic Dxz587 CL 107 mEq/L 01/23/2017 Comp Metabolic Rps224 CO2 21.0 mEq/L 01/23/2017 Comp Metabolic Qap340 ANION GAP 18 01/23/2017 Comp Metabolic Wlt486 GLUCOSE 138 mg/dL 01/23/2017 Comp Metabolic Vja864 Creat 1.0 mg/dL 01/23/2017 Comp Metabolic Pwv578 eGFR 56 ml/min/1.73m2 01/23/2017 Comp Metabolic Nlx857 BUN 26 mg/dL 01/23/2017 Comp Metabolic Kwn648 B/C Ratio 25.7 Ratio 01/23/2017 Comp Metabolic Uzb797 CALCIUM 9.0 mg/dL 01/23/2017 Comp Metabolic Wme578 ALK PHOS 37 U/L 01/23/2017 Comp Metabolic Nqq471 AST(SGOT) 20 U/L 01/23/2017 Comp Metabolic Jjn092 ALT(SGPT) 25 U/L 01/23/2017 Comp Metabolic Oqg756 BILI T 0.9 mg/dL 01/23/2017 Comp Metabolic Syt001 ALBUMIN 3.8 g/dL 01/23/2017 Comp Metabolic Xzj043 TPRO 6.5 g/dL 01/23/2017 Comp Metabolic Qqv218 GLOB 2.7 g/dL 01/23/2017 Comp Metabolic Vfw893 A/G Ratio 1.4 Ratio 01/23/2017 Comp Metabolic Npm594 Osmo 288 mOsmo 01/23/2017 Free T4 Cqy614 FREE T4 1.05 ng/dL 01/23/2017 %Hba1C Tbu079 % HbA1c 86909- 6 6.1 % 01/23/2017 %Hba1C Ldw040 Gluc Ave 128 mg/dL 01/23/2017 Tsh Ord6 hTSH II 1.68 uIU/mL 01/23/2017 Culture Urine [id number] URINE CULTURE SEE NOTES 11/10/2016 Culture Urine [id number] Continued Results 11/10/2016 Urine Culture Ucult Complete [...] Ord15 CALCIUM 9.3 mg/dL 09/29/2016 Free T4 Eni884 FREE T4 0.99 ng/dL 09/07/2016 Cbc With [...] 30.0 pg 09/07/2016 Cbc With Differential Ord2 [place]% 9.8 % 09/07/2016 Cbc With Differential Ord2 [...] 1.75 K/ul 09/07/2016 Cbc With Differential Ord2 [place] ABS# 0.6 K/ul 09/07/2016 Cbc With Differential Ord2 Eos ABS# 0.1 K/ul 09/07/2016 Cbc With Differential Ord2 Baso ABS# 0.0 K/ul 09/07/2016 Tsh Ord6 hTSH II 1.41 uIU/mL 09/07/2016 Culture Urine [id number] URINE CULTURE SEE NOTES 06/27/2016 Lipid Ord30 CHOL 196 mg/dL 06/22/2016 Lipid Ord30 HDL 63.0 mg/dl 06/22/2016 Lipid Ord30 TRIG 154 mg/dL 06/22/2016 Lipid Ord30 LDL 102 mg/dL 06/22/2016 Lipid Ord30 C/HDL 3.1 Ratio 06/22/2016 Hepatic Zpi747 ALBUMIN 4.2 g/dL 06/22/2016 Hepatic Mhe335 TPRO 7.0 g/dL 06/22/2016 Hepatic Drp627 GLOB 2.8 g/dL 06/22/2016 Hepatic Spw098 A/G Ratio 1.5 Ratio 06/22/2016 Hepatic Wyl932 ALK PHOS 54 U/L 06/22/2016 Hepatic Old466 ALT(SGPT) 30 U/L 06/22/2016 Hepatic Jcd508 AST(SGOT) 24 U/L 06/22/2016 Hepatic Dmr246 BILI T 1.1 mg/dL 06/22/2016 Hepatic Rpa783 BILI D 0.2 mg/dL 06/22/2016 Hepatic Aev129 BILI I 0.9 mg/dL 06/22/2016 Comp Metabolic Ixa108 NA 139 mEq/L 06/14/2016 Comp Metabolic Xsd756 K 4.6 mEq/L 06/14/2016 Comp Metabolic Lsi737 CL 108 mEq/L 06/14/2016 Comp Metabolic Dqm055 CO2 22.0 mEq/L 06/14/2016 Comp Metabolic Akm241 ANION GAP 14 06/14/2016 Comp Metabolic Zjo659 GLUCOSE 114 mg/dL 06/14/2016 Comp Metabolic Gvf011 Creat 1.2 mg/dL 06/14/2016 Comp Metabolic Iro170 eGFR 48 ml/min/1.73m2 06/14/2016 Comp Metabolic Tcz786 BUN 24 mg/dL 06/14/2016 Comp Metabolic Kxk050 B/C Ratio 20.9 Ratio 06/14/2016 Comp Metabolic Wnn690 CALCIUM 9.9 mg/dL 06/14/2016 Comp Metabolic Asb197 ALK PHOS 47 U/L 06/14/2016 Comp Metabolic Fhd535 AST(SGOT) 28 U/L 06/14/2016 Comp Metabolic Erb686 ALT(SGPT) 32 U/L 06/14/2016 Comp Metabolic Chw886 BILI T 0.9 mg/dL 06/14/2016 Comp Metabolic Zkm113 ALBUMIN 4.1 g/dL 06/14/2016 Comp Metabolic Kro621 TPRO 6.9 g/dL 06/14/2016 Comp Metabolic Sic319 GLOB 2.8 g/dL 06/14/2016 Comp Metabolic Ubw371 A/G Ratio 1.5 Ratio 06/14/2016 Comp Metabolic Xxp869 Osmo 282 mOsmo 06/14/2016 Tsh Ord6 hTSH II 1.26 uIU/mL 06/14/2016 Free T4 Qos286 FREE T4 1.09 ng/dL 06/14/2016 Tsh Ord6 hTSH II 0.28 uIU/mL 02/02/2016 Digoxin Ord9 DIGOXIN 0.7 NG/ML 02/02/2016 Free T4 Gff076 FREE T4 1.23 ng/dL 02/02/2016 Hepatic Giu935 ALBUMIN 4.0 g/dL 02/02/2016 Hepatic Xsu796 TPRO 7.0 g/dL 02/02/2016 Hepatic Rtp222 GLOB 3.0 g/dL 02/02/2016 Hepatic Mpp984 A/G Ratio 1.3 Ratio 02/02/2016 Hepatic Xdk583 ALK PHOS 57 U/L 02/02/2016 Hepatic Mjr878 ALT(SGPT) 62 U/L 02/02/2016 Hepatic Ies836 AST(SGOT) 54 U/L 02/02/2016 Hepatic Rah238 BILI T 0.8 mg/dL 02/02/2016 Hepatic Onq183 BILI D 0.2 mg/dL 02/02/2016 Hepatic Reg089 BILI I 0.6 mg/dL 02/02/2016 Urine Culture Ucult Preliminary No Growth Day 1 11/25/2015 Urine Culture Ucult Complete No Growth Day 2 11/25/2015 Hepatic Nbu173 ALBUMIN 3.9 g/dL 11/11/2015 Hepatic Ylh438 TPRO 7.0 g/dL 11/11/2015 Hepatic Hdm678 GLOB 3.1 g/dL 11/11/2015 Hepatic Wsa053 A/G Ratio 1.3 Ratio 11/11/2015 Hepatic Uft517 ALK PHOS 63 U/L 11/11/2015 Hepatic Pfr475 ALT(SGPT) 107 U/L 11/11/2015 Hepatic Wdv922 AST(SGOT) 101 U/L 11/11/2015 Hepatic Adz748 BILI T 0.6 mg/dL 11/11/2015 Hepatic Qaf235 BILI D 0.1 mg/dL 11/11/2015 Hepatic Oik922 BILI I 0.5 mg/dL 11/11/2015 Comp Metabolic Vnb295 NA 138 mEq/L 10/29/2015 Comp Metabolic Qvi318 K 5.0 mEq/L 10/29/2015 Comp Metabolic Zsc433 CL 105 mEq/L 10/29/2015 Comp Metabolic Elw441 CO2 23.0 mEq/L 10/29/2015 Comp Metabolic Hcw297 ANION GAP 15 10/29/2015 Comp Metabolic Civ722 GLUCOSE 105 mg/dL 10/29/2015 Comp Metabolic Wre253 Creat 1.0 mg/dL 10/29/2015 Comp Metabolic Ctg614 eGFR 55 ml/min/1.73m2 10/29/2015 Comp Metabolic Kpn821 BUN 20 mg/dL 10/29/2015 Comp Metabolic Buo372 B/C Ratio 19.4 Ratio 10/29/2015 Comp Metabolic Lck736 CALCIUM 8.8 mg/dL 10/29/2015 Comp Metabolic Vrv330 ALK PHOS 56 U/L 10/29/2015 Comp Metabolic Axq495 AST(SGOT) 66 U/L 10/29/2015 Comp Metabolic Pyy276 ALT(SGPT) 78 U/L 10/29/2015 Comp Metabolic Vaw210 BILI T 0.7 mg/dL 10/29/2015 Comp Metabolic Ntd430 ALBUMIN 3.6 g/dL 10/29/2015 Comp Metabolic Qiz145 TPRO 6.6 g/dL 10/29/2015 Comp Metabolic Ujp051 GLOB 3.0 g/dL 10/29/2015 Comp Metabolic Cqs027 A/G Ratio 1.2 Ratio 10/29/2015 Comp Metabolic Atp250 Osmo 279 mOsmo 10/29/2015 Comp Metabolic Pvp450 NA 136 mEq/L 09/03/2015 Comp Metabolic Amj276 K 4.4 mEq/L 09/03/2015 Comp Metabolic Fte137 CL 103 mEq/L 09/03/2015 Comp Metabolic Oyv266 CO2 24.0 mEq/L 09/03/2015 Comp Metabolic Gfi147 ANION GAP 13 09/03/2015 Comp Metabolic Eui980 GLUCOSE 87 mg/dL 09/03/2015 Comp Metabolic Pmy631 Creat 1.1 mg/dL 09/03/2015 Comp Metabolic Ssf533 eGFR 53 ml/min/1.73m2 09/03/2015 Comp Metabolic Qza563 BUN 17 mg/dL 09/03/2015 Comp Metabolic Edh856 B/C Ratio 16.2 Ratio 09/03/2015 Comp Metabolic Rli771 CALCIUM 9.0 mg/dL 09/03/2015 Comp Metabolic Mkw649 ALK PHOS 55 U/L 09/03/2015 Comp Metabolic Vtl562 AST(SGOT) 83 U/L 09/03/2015 Comp Metabolic Mxc845 ALT(SGPT) 126 U/L 09/03/2015 Comp Metabolic Llx548 BILI T 0.9 mg/dL 09/03/2015 Comp Metabolic Hqt280 ALBUMIN 3.9 g/dL 09/03/2015 Comp Metabolic Ndv296 TPRO 6.8 g/dL 09/03/2015 Comp Metabolic Dme836 GLOB 2.9 g/dL 09/03/2015 Comp Metabolic Xzs227 A/G Ratio 1.4 Ratio 09/03/2015 Comp Metabolic Pyp894 Osmo 273 mOsmo 09/03/2015 Total T3 Ord42 TT3 0.6 ng/ml 07/09/2015 Tsh Ord6 hTSH II 1.62 uIU/mL 07/09/2015 Total T3 Ord42 TT3 0.5 ng/ml 04/02/2015 Free T4 Irm761 FREE T4 1.23 ng/dL 04/02/2015 Tsh Ord6 [...] Procedure Codes Date THER/PROPH/DIAG INJ SC/IM CPT-4: 45274 08/01/2018 VITAMIN B12 INJECTION CPT- 4: J3420 08/01/2018 THER/PROPH/DIAG INJ SC/IM CPT-4: 14937 07/19/2018 THER/PROPH/DIAG INJ SC/IM CPT-4: 34863 07/04/2018 THER/PROPH/DIAG INJ SC/IM CPT-4: 12967 06/20/2018 THER/PROPH/DIAG INJ SC/IM CPT-4: 54324 06/06/2018 VITAMIN B12 INJECTION CPT- 4: J3420 06/06/2018 THER/PROPH/DIAG INJ SC/IM CPT-4: 07090 05/24/2018 THER/PROPH/DIAG INJ SC/IM CPT-4: 30378 05/09/2018 THER/PROPH/DIAG INJ SC/IM CPT-4: 86399 04/26/2018 VITAMIN B12 INJECTION CPT- 4: J3420 04/26/2018 THER/PROPH/DIAG INJ SC/IM CPT-4: 76942 04/12/2018 THER/PROPH/DIAG INJ SC/IM CPT-4: 21024 03/30/2018 THER/PROPH/DIAG INJ SC/IM CPT-4: 37443 03/16/2018 VITAMIN B12 INJECTION CPT- 4: J3420 03/16/2018 ADMIN INFLUENZA VIRUS VAC CPT-4: G0008 03/16/2018 FLU VACC PRSV FREE INC ANTIG Formatting Model/CDA Sections, Assigned to/Rusty Nga CPT-4: [id number] 03/16/2018 THER/PROPH/DIAG INJ SC/IM CPT-4: 87179 03/02/2018 THER/PROPH/DIAG INJ SC/IM CPT-4: 13548 02/08/2018 THER/PROPH/DIAG INJ SC/IM CPT-4: 30721 01/24/2018 THER/PROPH/DIAG INJ SC/IM CPT-4: 00296 01/10/2018 THER/PROPH/DIAG INJ SC/IM CPT-4: 98644 12/27/2017 VITAMIN B12 INJECTION CPT- 4: J3420 12/27/2017 THER/PROPH/DIAG INJ SC/IM CPT-4: 09848 12/12/2017 THER/PROPH/DIAG INJ SC/IM CPT-4: 84455 12/01/2017 VITAMIN B12 INJECTION CPT- 4: J3420 12/01/2017 THER/PROPH/DIAG INJ SC/IM CPT-4: 21399 11/17/2017 THER/PROPH/DIAG INJ SC/IM CPT-4: 95599 11/02/2017 THER/PROPH/DIAG INJ SC/IM CPT-4: 06416 10/20/2017 THER/PROPH/DIAG INJ SC/IM CPT-4: 48238 10/06/2017 THER/PROPH/DIAG INJ SC/IM CPT-4: 97083 09/21/2017 TRIAMCINOLONE ACET INJ NOS CPT-4: J3301 09/15/2017 THER/PROPH/DIAG INJ SC/IM CPT-4: 12349 09/07/2017 THER/PROPH/DIAG INJ SC/IM CPT-4: 39955 08/24/2017 THER/PROPH/DIAG INJ SC/IM CPT-4: 00615 07/06/2017 THER/PROPH/DIAG INJ SC/IM CPT-4: 77615 06/20/2017 TRIAMCINOLONE ACET INJ NOS CPT-4: J3301 06/20/2017 PPPS, SUBSEQ VISIT CPT- 4: G0439 06/05/2017 THER/PROPH/DIAG INJ SC/IM CPT-4: 40683 06/05/2017 THER/PROPH/DIAG INJ SC/IM CPT-4: 24567 05/25/2017 VITAMIN B12 INJECTION CPT- 4: J3420 05/25/2017 THER/PROPH/DIAG INJ SC/IM CPT-4: 35330 05/16/2017 THER/PROPH/DIAG INJ SC/IM CPT-4: 32807 05/01/2017 THER/PROPH/DIAG INJ SC/IM CPT-4: 35474 04/18/2017 THER/PROPH/DIAG INJ SC/IM CPT-4: 01636 04/06/2017 ADMIN INFLUENZA VIRUS VAC CPT-4: G0008 03/22/2017 FLU VACC PRSV FREE INC ANTIG CPT-4: 71733 03/22/2017 THER/PROPH/DIAG INJ SC/IM CPT-4: 98751 03/09/2017 THER/PROPH/DIAG INJ SC/IM CPT-4: 45792 02/23/2017 THER/PROPH/DIAG INJ SC/IM CPT-4: 53776 02/09/2017 THER/PROPH/DIAG INJ SC/IM CPT-4: 93837 01/23/2017 THER/PROPH/DIAG INJ SC/IM CPT-4: 48279 01/10/2017 THER/PROPH/DIAG INJ SC/IM CPT-4: 23186 12/28/2016 THER/PROPH/DIAG INJ SC/IM CPT-4: 59399 12/14/2016 THER/PROPH/DIAG INJ SC/IM CPT-4: 11405 11/24/2016 URINALYSIS NONAUTO W/O SCOPE CPT-4: 68765 11/07/2016 THER/PROPH/DIAG INJ SC/IM CPT-4: 57238 11/07/2016 THER/PROPH/DIAG INJ SC/IM CPT-4: 53030 10/24/2016 THER/PROPH/DIAG INJ SC/IM CPT-4: 38141 09/29/2016 THER/PROPH/DIAG INJ SC/IM CPT-4: 42907 08/29/2016 THER/PROPH/DIAG INJ SC/IM CPT-4: 77011 08/04/2016 THER/PROPH/DIAG INJ SC/IM CPT-4: 13128 07/21/2016 THER/PROPH/DIAG INJ SC/IM CPT-4: 67047 07/05/2016 THER/PROPH/DIAG INJ SC/IM CPT-4: 51318 06/22/2016 URINALYSIS NONAUTO W/O SCOPE CPT-4: 79313 06/22/2016 THER/PROPH/DIAG INJ SC/IM CPT-4: 66027 06/09/2016 PPPS, SUBSEQ VISIT CPT- 4: G0439 05/30/2016 ADMIN PNEUMOCOCCAL VACCINE SNOMED CT: 13970506 CPT-4: G0009 05/25/2016 Pneumococcal Polysaccharide Vaccine, 23-Valent, Ad CPT-4: 57830 05/25/2016 THER/PROPH/DIAG INJ SC/IM CPT-4: 57499 05/25/2016 THER/PROPH/DIAG INJ SC/IM CPT-4: 60595 05/10/2016 TRIAMCINOLONE ACET INJ NOS CPT-4: J3301 04/26/2016 VITAMIN B12 INJECTION CPT- 4: J3420 04/26/2016 THER/PROPH/DIAG INJ SC/IM CPT-4: 88937 04/11/2016 THER/PROPH/DIAG INJ SC/IM CPT-4: 50775 03/31/2016 ADMIN INFLUENZA VIRUS VAC CPT-4: G0008 03/15/2016 FLU VACC 4 STEPHANIE 3 YRS PLUS IM SNOMED CT: 56630398 CPT-4: 13334 03/15/2016 THER/PROPH/DIAG INJ SC/IM CPT-4: 40505 02/25/2016 THER/PROPH/DIAG INJ SC/IM CPT-4: 03155 02/02/2016 THER/PROPH/DIAG INJ SC/IM CPT-4: 19429 01/18/2016 VITAMIN B12 INJECTION CPT- 4: J3420 12/29/2015 THER/PROPH/DIAG INJ SC/IM CPT-4: 06997 12/29/2015 THER/PROPH/DIAG INJ SC/IM CPT-4: 88741 12/08/2015 THER/PROPH/DIAG INJ SC/IM CPT-4: 22761 11/23/2015 URINALYSIS NONAUTO W/O SCOPE CPT-4: 52884 11/23/2015 THER/PROPH/DIAG INJ SC/IM CPT-4: 51468 11/11/2015 THER/PROPH/DIAG INJ SC/IM CPT-4: 56751 10/29/2015 THER/PROPH/DIAG INJ SC/IM CPT-4: 52050 10/12/2015 VITAMIN B12 INJECTION CPT- 4: J3420 10/12/2015 THER/PROPH/DIAG INJ SC/IM CPT-4: 28203 09/29/2015 THER/PROPH/DIAG INJ SC/IM CPT-4: 08181 09/17/2015 THER/PROPH/DIAG INJ SC/IM CPT-4: 70001 09/03/2015 THER/PROPH/DIAG INJ SC/IM CPT-4: 51007 08/17/2015 THER/PROPH/DIAG INJ SC/IM CPT-4: 91026 08/06/2015 THER/PROPH/DIAG INJ SC/IM CPT-4: 62127 07/22/2015 THER/PROPH/DIAG INJ SC/IM CPT-4: 81032 07/08/2015 THER/PROPH/DIAG INJ SC/IM CPT-4: 82094 06/23/2015 THER/PROPH/DIAG INJ SC/IM CPT-4: 74805 06/08/2015 THER/PROPH/DIAG INJ SC/IM CPT-4: 33789 05/27/2015 DESTRUCT PREMALG LESION CPT-4: 08758 05/19/2015 DESTRUCT PREMALG LES 2-14 CPT-4: 30535 05/19/2015 THER/PROPH/DIAG INJ SC/IM CPT-4: 48972 05/12/2015 VITAMIN B12 INJECTION CPT- 4: J3420 05/12/2015 THER/PROPH/DIAG INJ SC/IM CPT-4: 91046 04/30/2015 VITAMIN B12 INJECTION CPT- 4: J3420 04/30/2015 THER/PROPH/DIAG INJ SC/IM CPT-4: 95611 04/16/2015 THER/PROPH/DIAG INJ SC/IM CPT-4: 31177 04/02/2015 VITAMIN B12 INJECTION CPT- 4: J3420 04/02/2015 THER/PROPH/DIAG INJ SC/IM CPT-4: 24894 03/18/2015 THER/PROPH/DIAG INJ SC/IM CPT-4: 91519 03/03/2015 THER/PROPH/DIAG INJ SC/IM CPT-4: 24649 02/18/2015 THER/PROPH/DIAG INJ SC/IM CPT-4: 25747 02/04/2015 VITAMIN B12 INJECTION CPT- 4: J3420 02/04/2015 THER/PROPH/DIAG INJ SC/IM CPT-4: 36944 01/22/2015 THER/PROPH/DIAG INJ SC/IM CPT-4: 02152 01/08/2015 VITAMIN B12 INJECTION CPT- 4: J3420 01/08/2015 THER/PROPH/DIAG INJ SC/IM CPT-4: 94833 12/25/2014 VITAMIN B12 INJECTION CPT- 4: J3420 12/25/2014 THER/PROPH/DIAG INJ SC/IM CPT-4: 77547 12/10/2014 VITAMIN B12 INJECTION CPT- 4: J3420 12/10/2014 THER/PROPH/DIAG INJ SC/IM CPT-4: 24043 11/26/2014 VITAMIN B12 INJECTION CPT- 4: J3420 11/26/2014 THER/PROPH/DIAG INJ SC/IM CPT-4: 20931 11/12/2014 VITAMIN B12 INJECTION CPT- 4: J3420 11/12/2014 THER/PROPH/DIAG INJ SC/IM CPT-4: 61819 10/28/2014 Vital Signs Date Vital 05/03/2018 Blood Pressure 1: 140/70 Code: 8480-6 BMI: 26.0 Code: 29721-6 Heart Rate 1: 70 bpm Height: 5'6" SpO2: 94% Weight: 161 lbs 04/26/2018 Height: 5'6" 02/26/2018 Blood Pressure 1: 130/72 Code: 8480-6 BMI: 27.9 Code: 88723-7 Heart Rate 1: 72 bpm Height: 5'6" SpO2: 93% Weight: 173 lbs 12/12/2017 Blood Pressure 1: 126/74 Code: 8480-6 BMI: 27.4 Code: 36238-1 Heart Rate 1: 83 bpm Height: 5'6" SpO2: 98% Weight: 170 lbs 12/04/2017 Blood Pressure 1: 104/68 Code: 8480-6 BMI: 28.2 Code: 74244-9 Heart Rate 1: 85 bpm Height: 5'6" SpO2: 95% Weight: 175 lbs 11/20/2017 Blood Pressure 1: 130/68 Code: 8480-6 BMI: 28.4 Code: 37833-4 Heart Rate 1: 80 bpm Height: 5'6" SpO2: 99% Weight: 176 lbs 11/02/2017 Height: 5'6" 09/15/2017 Blood Pressure 1: 134/74 Code: 8480-6 BMI: 28.4 Code: 11491-8 Heart Rate 1: 88 bpm Height: 5'6" SpO2: 98% Weight: 176 lbs 09/07/2017 Blood Pressure 1: 124/64 Code: 8480-6 Heart Rate 1: 90 bpm Height: SpO2: 97% Weight: 08/30/2017 Blood Pressure 1: 140/76 Code: 8480-6 BMI: 28.4 Code: 27706-9 Heart Rate 1: 90 bpm Height: 5'6" SpO2: 94% Weight: 176 lbs 07/06/2017 Blood Pressure 1: 132/66 Code: 8480-6 BMI: 29.4 Code: 63063-9 Heart Rate 1: 85 bpm Height: 5'6" SpO2: 97% Weight: 182 lbs 06/20/2017 Blood Pressure 1: 134/86 Code: 8480-6 Heart Rate 1: 90 bpm Height: SpO2: 98% Weight: 06/05/2017 BMI: 29.1 Code: 87869-9 Height: 5'6" Weight: 180 lbs 05/25/2017 Blood Pressure 1: 126/76 Code: 8480-6 BMI: 29.1 Code: 17735-3 Heart Rate 1: 77 bpm Height: 5'6" SpO2: 97% Weight: 180 lbs 03/23/2017 Blood Pressure 1: 142/84 Code: 8480-6 BMI: 29.1 Code: 66430-3 Heart Rate 1: 91 bpm Height: 5'6" SpO2: 97% Weight: 180 lbs 01/23/2017 Blood Pressure 1: 150/90 Code: 8480-6 BMI: 29.9 Code: 95982-5 Heart Rate 1: 81 bpm Height: 5'6" SpO2: 97% Weight: 185 lbs 11/02/2016 Blood Pressure 1: 148/78 Code: 8480-6 BMI: 29.7 Code: 43573-1 Heart Rate 1: 87 bpm Height: 5'6" SpO2: 97% Weight: 184 lbs 09/29/2016 Blood Pressure 1: 128/78 Code: 8480-6 BMI: 29.7 Code: 69587-4 Heart Rate 1: 78 bpm Height: 5'6" SpO2: 98% Weight: 184 lbs 07/26/2016 Blood Pressure 1: 138/72 Code: 8480-6 BMI: 30.0 Code: 13834-9 Heart Rate 1: 85 bpm Height: 5'6" SpO2: 97% Weight: 186 lbs 05/30/2016 Blood Pressure 1: 132/76 Code: 8480-6 BMI: 30.0 Code: 49400-3 Heart Rate 1: 80 bpm Height: 5'6" SpO2: 98% Waist Measure (cm): 99 cm Weight: 186 lbs 05/25/2016 Blood Pressure 1: 132/76 Code: 8480-6 BMI: 30.0 Code: 10657-9 Heart Rate 1: 80 bpm Height: 5'6" SpO2: 96% Weight: 186 lbs 02/25/2016 Blood Pressure 1: 110/64 Code: 8480-6 Heart Rate 1: 82 bpm Height: SpO2: 96% Weight: 01/25/2016 Blood Pressure 1: 118/70 Code: 8480-6 BMI: 30.0 Code: 76272-4 Heart Rate 1: 78 bpm Height: 5'6" SpO2: 97% Weight: 186 lbs 11/11/2015 Blood Pressure 1: 128/82 Code: 8480-6 BMI: 29.2 Code: 92904-9 Heart Rate 1: 86 bpm Height: 5'6" SpO2: 96% Temperature: 36.4 (C) / 97.6 (F) Weight: 181 lbs 10/12/2015 Blood Pressure 1: 118/70 Code: 8480-6 BMI: 29.2 Code: 10474-2 Heart Rate 1: 81 bpm Height: 5'6" SpO2: 95% Weight: 181 lbs 09/03/2015 Blood Pressure 1: 138/78 Code: 8480-6 BMI: 29.9 Code: 80317-7 Heart Rate 1: 88 bpm Height: 5'6" SpO2: 97% Weight: 185 lbs 05/19/2015 Blood Pressure 1: 146/78 Code: 8480-6 BMI: 30.0 Code: 04007-7 Heart Rate 1: 66 bpm Height: 5'6" SpO2: 97% Weight: 186 lbs 05/12/2015 Blood Pressure 1: 120/70 Code: 8480-6 BMI: 29.9 Code: 60713-6 Heart Rate 1: 89 bpm Height: 5'6" SpO2: 95% Weight: 185 lbs 01/13/2015 Blood Pressure 1: 140/90 Code: 8480-6 BMI: 30.3 Code: 67347-2 Heart Rate 1: 84 bpm Height: 5'6" SpO2: 95% Weight: 188 lbs 12/16/2014 Blood Pressure 1: 140/82 Code: 8480-6 BMI: 29.5 Code: 79285-6 Heart Rate 1: 86 bpm Height: 5'6" [...] data Encounters Encounter Performer Location Codes Date ([id number]) [id number] EST. PATIENT, LEVEL IV Diagnosis: Essential (primary) hypertension[ICD10: I10] Diagnosis: Type 2 diabetes mellitus without complications[ICD10: E11.9] [facility] CPT-4: 09217 05/03/2018 ([id number]) 35993 EST. PATIENT, LEVEL III Diagnosis: Pain in left shoulder[ICD10: M25.512] Diagnosis: Pain in right shoulder[ICD10: M25.511] [facility] CPT-4: 33724 02/26/2018 [id number]) [id number] EST. PATIENT, LEVEL III Diagnosis: Nausea[ICD10: R11.0] Diagnosis: Cough[ICD10: R05] Diagnosis: 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 factor deficiency[ICD10: D51.0] Janet Vega MD, [facility] CPT-4: 99471 12/12/2017 ([id number]) 34566 EST. PATIENT, LEVEL IV Diagnosis: Acute bronchitis due to Hemophilus influenzae[ICD10: J20.1] Diagnosis: Cough[ICD10: R05] Yarely Vega MD, [facility] CPT-4: 64922 12/04/2017 ([id number]) 95457 EST. PATIENT, LEVEL IV Diagnosis: Essential (primary) hypertension[ICD10: I10] Diagnosis: Cough[ICD10: R05] Diagnosis: Chronic atrial fibrillation[ICD10: I48.2] Yarely Vega MD, [facility] CPT-4: 57409 11/20/2017 ([id number]) 97139 EST. PATIENT, LEVEL III Diagnosis: Cough[ICD10: R05] Diagnosis: Acute upper respiratory infection, unspecified[ICD10: J06.9] Janet Vega MD, [facility] CPT-4: 46070 09/15/2017 64422 EST. PATIENT, LEVEL III Diagnosis: Laceration without foreign body of right forearm, initial encounter[ICD10: S51.811A] Diagnosis: Other vitamin B12 deficiency anemias[ICD10: D51.8] Brianna Vega MD, [facility] CPT-4: 48978 09/07/2017 ([id number]) 98775 EST. PATIENT, LEVEL IV Diagnosis: Chronic atrial fibrillation[ICD10: I48.2] Diagnosis: Other allergic rhinitis[ICD10: J30.89] Diagnosis: Encounter for therapeutic drug level monitoring[ICD10: Z51.81] Yarely Vega MD, [facility] CPT-4: 42116 08/30/2017 ([id number]) 18219 EST. PATIENT, LEVEL IV Diagnosis: Atrophy of thyroid (acquired)[ICD10: E03.4] Diagnosis: Cough[ICD10: R05] Diagnosis: Laceration without foreign body of left forearm, initial encounter[ICD10: S51.812A] Diagnosis: Candidiasis of skin and nail[ICD10: B37.2] Diagnosis: Other vitamin B12 deficiency anemias[ICD10: D51.8] Diagnosis: Slow transit constipation[ICD10: K59.01] Yarely Vega MD, [facility] CPT-4: 29747 07/06/2017 80488 EST. PATIENT, LEVEL III Diagnosis: Other vitamin B12 deficiency anemias[ICD10: D51.8] Diagnosis: Acute laryngopharyngitis[ICD10: J06.0] Diagnosis: Other allergic rhinitis[ICD10: J30.89] [facility] CPT- 4: 05016 06/20/[id number]) 87937 EST. PATIENT, LEVEL IV Diagnosis: Essential (primary) hypertension[ICD10: I10] Diagnosis: Chronic atrial fibrillation[ICD10: I48.2] Diagnosis: Atrophy of thyroid (acquired)[ICD10: E03.4] Diagnosis: 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 factor deficiency[ICD10: D51.0] Yarely Vega MD, [facility] CPT-4: 18050 05/25/2017 ([id number]) 94614 EST. 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 PATIENT, LEVEL IV Diagnosis: Type 2 diabetes mellitus without complications[ICD10: E11.9] Diagnosis: Essential (primary) hypertension[ICD10: I10] Diagnosis: Headache[ICD10: R51] Diagnosis: Atrophy of thyroid (acquired)[ICD10: E03.4] Diagnosis: Vitamin B12 deficiency anemia, unspecified[ICD10: D51.9] [facility] CPT-4: 28024 01/23/2017 [id number] EST. PATIENT, LEVEL III Diagnosis: Low back pain[ICD10: M54.5] Diagnosis: Pain in thoracic spine[ICD10: M54.6] [facility] CPT- 4: 10351 11/02/2016 ([id number]) 81572 EST. PATIENT, LEVEL IV Diagnosis: Essential (primary) hypertension[ICD10: I10] Diagnosis: Other vitamin B12 deficiency anemias[ICD10: D51.8] Diagnosis: Generalized abdominal pain[ICD10: R10.84] Yarely Vega MD [facility] CPT-4: 68901 09/29/2016 ([id number]) 41777 EST. PATIENT, LEVEL IV Diagnosis: Essential (primary) hypertension[ICD10: I10] Yarely Vega MD, [facility] CPT-4: 01279 07/26/2016 ([id number]) 38449 EST. PATIENT, LEVEL IV Diagnosis: Benign lipomatous neoplasm of skin and subcutaneous tissue of right leg[ICD10: D17.23] Diagnosis: Pain in right ankle and joints of right foot[ICD10: M25.571] Diagnosis: Encounter for immunization[ICD10: Z23] Diagnosis: Vitamin B12 deficiency anemia, unspecified[ICD10: D51.9] Yarely Vega MD [facility] CPT-4: 94257 05/25/2016 [id number] EST. PATIENT, LEVEL III Diagnosis: Other chest pain[ICD10: R07.89] Diagnosis: Other vitamin B12 deficiency anemias[ICD10: D51.8] Brianna Vega MD, [facility] CPT-4: 78297 02/25/2016 ([id number]) 77723 EST. 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 PATIENT, LEVEL III Diagnosis: Other vitamin B12 deficiency anemias[ICD10: D51.8] Diagnosis: Acute nasopharyngitis [common cold][ICD10: J00] Diagnosis: Other allergic rhinitis[ICD10: J30.89] Brianna Vega MD, [facility] CPT- 4: 72232 11/11/2015 ([id number]) 15825 EST. PATIENT, LEVEL IV Diagnosis: Essential tremor[ICD10: G25.0] Diagnosis: Chronic fatigue, unspecified[ICD10: R53.82] Diagnosis: Other hypersomnia[ICD10: G47.19] Diagnosis: Essential (primary) hypertension[ICD10: I10] Yarely Vega MD, [facility] CPT-4: 15269 10/12/2015 ([id number]) 74032 EST. PATIENT, LEVEL IV Diagnosis: Essential (primary) hypertension[ICD10: I10] Diagnosis: Chronic atrial fibrillation[ICD10: I48.2] Diagnosis: Abnormal levels of other serum enzymes[ICD10: R74.8] Diagnosis: Type 2 diabetes mellitus without complications[ICD10: E11.9] Diagnosis: Vitamin B12 deficiency anemia, unspecified[ICD10: D51.9] Yarely Vega MD, [facility] CPT-4: 92680 09/03/2015 ([id number]) 53133 EST. PATIENT, LEVEL III Diagnosis: Nausea[ICD10: R11.0] Diagnosis: Essential tremor[ICD10: G25.0] Diagnosis: Actinic keratosis[ICD10: L57.0] Yarely Vega MD, [facility] CPT-4: 81375 05/19/2015 ([id number]) 12283 EST. PATIENT, LEVEL IV Diagnosis: Vitamin B12 deficiency anemia, unspecified[ICD10: D51.9] Diagnosis: Chronic atrial fibrillation[ICD10: I48.2] Diagnosis: Headache[ICD10: R51] Diagnosis: Chronic fatigue, unspecified[ICD10: R53.82] Diagnosis: Cervicalgia[ICD10: M54.2] Yarely Vega MD, [facility] CPT-4: 31056 05/12/2015 ([id number]) 70607 EST. PATIENT, LEVEL IV Diagnosis: ESSENTIAL HYPERTENSION[ICD9: 401.9] Diagnosis: Afib[ICD9: 427.31] Diagnosis: Anxiety[ICD9: 300.00] Diagnosis: Insomnia[ICD9: 780.52] Yarely Vega MD, [facility] CPT-4: 81402 01/13/2015 ([id number]) OFFICE VISIT, NEW - LEVEL 4 Diagnosis: Hypothyroidism[ICD9: 244.9] Diagnosis: DIABETES TYPE II[ICD9: 250.00] Diagnosis: ESSENTIAL HYPERTENSION[ICD9: 401.9] Diagnosis: Afib[ICD9: 427.31] Diagnosis: Anxiety[ICD9: 300.00] Diagnosis: B12 deficiency[ICD9: 266.2] Janet Vega MD, [facility] CPT-4: 72079 12/16/2014 Plan of Care Planned Activity Notes Codes Status Date Patient Education: Patient Medication Summary Completed 08/01/2018 Appointment: Injection 07/19/2018 Patient Education: Patient Medication Summary Completed 07/19/2018 Appointment: Injection 07/04/2018 Patient Education: Patient Medication Summary Completed 07/04/2018 Appointment: Injection 06/20/2018 Patient Education: Patient Medication Summary Completed 06/20/2018 [facility] [phone] [facility] ([facility] min) Complex 06/07/2018 Appointment: Injection 06/06/2018 Patient Education: Patient Medication Summary Completed 06/06/2018 Appointment: [phone] [facility] (15 min) Moderate 05/31/2018 Appointment: Injection [...] restart flonase 05/03/2018 Appointment: [facility] [phone] [facility] [place] (15 min) Moderate 05/03/2018 Patient [...] surgical intervention. 02/26/2018 Appointment: Yarely Vega WPtel: [facility][note 3]5 [facility] [place] (15 min) Moderate 02/26/2018 Patient Education: Patient Medication Summary Completed 02/26/2018 Care Plan: Referral Order SNOMED-CT : [id number] Pending 02/26/2018 Appointment: Injection 02/08/2018 Patient Education: Patient Medication Summary Completed 02/08/2018 Appointment: Injection 01/24/2018 Patient Education: Patient Medication Summary Completed 01/24/2018 Appointment: Injection 01/10/2018 Patient Education: Patient Medication Summary Completed 01/10/2018 Appointment: Injection 12/27/2017 Patient Education: Patient Medication Summary Completed 12/27/2017 Appointment: Yarely Vega WPtel: [facility][note 3]5 [facility] [place] (15 min) Moderate 12/26/2017 Visit Plan: Dvgsgo-xqejscawc-qbefifrw protonix-follow up with Dr Navarro as scheduled Cough-recent bronchitis-symptoms improved-call if symptoms do not completely resolve 12/12/2017 [facility]ment[phone] [phone] [place] (15 min) Moderate 12/12/2017 [...] medication. 12/04/2017 Appointment: Yarely Vega WPtel: [phone] [facility] (15 min) Moderate 12/04/2017 Patient Education: Patient [...] Fatigue/malaise -Pt was advsied to ask the [employer] Manager the following: ask the heart doctor if [...] uncontrolled. 11/20/2017 Appointment: Yarely Vega WPtel: [phone] [facility] (15 min) Moderate 11/20/2017 Patient Education: [...] worse. 09/15/2017 Appointment: Janet Fam WPtel: [phone] [phone] [place] (15 min) Moderate 09/15/2017 Patient Education: Patient Medication Summary Completed 09/15/2017 Appointment: Yarely Vega WPtel: [facility][note 3]2 [place] [facility] [place] (15 min) Moderate 09/11/2017 Visit Plan: Skin tear and Cellulitis - The patient was instructed in appropriate wound care. The patient was instructed to use the antibiotic ointment as per RX. The patient is to call for any change in symptoms, increase in size of the lesion, increase in pain, worsening redness, warmth, discharge. 09/07/2017 Appointment: Brianna Otoole WPtel: [phone] [facility] [place] (10 min) Simple 09/07/2017 Patient Education: Patient Medication Summary Completed 09/07/2017 Visit Plan: Lipoma - left ankle - talk to dr. barnes about possible surgery/laser for treatment of lipoma. Fatigue/malaise -Pt was advsied to ask the Auto Fleet Maintenance Manager the following: ask the heart doctor if there is an alternative to the amiodarone - you may be having side effects from the medication causing you to have pruritus (itching) and feeling like you have body aches, muscle aches, joint pain, fatigue, weight loss (decreased appetite), and pneumonia like symptoms. Congestion - claritin 10mg daily. 08/30/2017 Appointment: Yarely Vega WPtel: [facility][note 3]7 [facility] [place] (15 min) Moderate 08/30/2017 Patient Education: Patient Medication Summary Completed 08/30/2017 Appointment: Injection 08/24/2017 Appointment: Yarely Vega WPtel: [facility][note 3]8 [facility] [place] (15 min) Moderate 08/24/2017 Patient Education: [...] and mucinex 07/06/2017 Appointment: Yarely Vega WPtel: [facility][note 3][address] (15 min) Moderate 07/06/2017 Patient Education: [...] allergy spray. 06/20/2017 Appointment: Brianna Otoole WPtel: [facility][note 3][address] (15 min) Moderate 06/20/2017 Patient Education: [...] Injection 06/05/2017 Appointment: [facility]el[phone] [facility] - Annual Wellness Visit 06/05/2017 Patient [...] q 3 months or q [address] [facility] based on previous levels of control. 05/25/2017 Appointment: [facility]Ptel[facility] (15 min) Moderate 05/25/2017 Patient Education: [...] wall. Fatigue - pt to discuss with [employer] Maintenance Manager about the possibility of amiodarone causing her fatigue/malaise. 03/23/2017 Appointment: [facility]are[facility]ega WPtel[facility] [facility] (15 min) Moderate 03/23/2017 Patient Education: [...] daily. 01/23/2017 Appointment: Yare[facility]ega WPtel[phone] [facility] (15 min) Moderate 01/23/2017 Patient Education: [...] improve. 11/02/2016 Appointment: [facility]ole [facility]Ptel[phone] [facility] [place] (15 min) Moderate 11/02/2016 [...] carafate 09/29/2016 Appointment: Yarely [facility]ega WPtel[facility] [address] [facility] [place] (15 min) Moderate 09/29/2016 Patient Education: Patient Medication Summary Completed 09/29/2016 Appointment: Yarely [facility]ega WPtel[facility] [address] [facility] [place] (15 min) Moderate 09/27/2016 Appointment: Yarely [facility]ega WPtel: [address] [facility] [place] (15 min) Moderate 09/20/2016 Appointment: Yarely [facility]ega WPtel: [address] [facility] [place] (15 min) Moderate 09/20/2016 Patient Education: Patient Medication Summary Completed 09/06/2016 Appointment: Yarely Vega WPtel: [phone] [facility] [place] (15 min) Moderate 08/30/2016 Appointment: [...] concerns. 07/26/2016 Appointment: Yarely [facility]ega WPtel: [address] [facility] [place] (15 min) Moderate 07/26/2016 Patient [...] surrogate. 05/30/2016 Appointment: Bri[facility]toole [facility]Ptel[phone] [facility] [facility] Annual Wellness Visit 05/30/2016 Patient [...] bedtime 05/25/2016 Appointment: Yarely [facility]ega WPtel[facility] [address] [facility] (15 min) Moderate 05/25/2016 Patient Education: Patient Medication Summary Completed 05/25/2016 Patient Education: Obesity Completed 05/25/2016 Care Plan: Referral Order SNOMED-CT : [id number] Pending 05/25/2016 Appointment: Injection 05/10/2016 Patient Education: Patient Medication Summary Completed 05/10/2016 Appointment: Injection 04/26/2016 Patient Education: Patient Medication Summary Completed 04/26/2016 Appointment: Injection 04/11/2016 Patient Education: Patient Medication Summary Completed 04/11/2016 Appointment: Injection 03/31/2016 Patient Education: Patient Medication Summary Completed 03/31/2016 Patient Education: Patient Medication Summary Completed 03/22/2016 Care Plan: SCREENINGMAMMOGRAPHYDIGITAL LOINC : 79547-1 Pending 03/22/2016 Appointment: Injection 03/15/2016 Patient Education: [...] any concerns. 02/25/2016 Appointment: Xiang Brianna WPtel: [phone] [facility] [place] (15 min) Moderate 02/25/2016 [...] than later. 10/12/2015 Appointment: Yarely Vega WPtel: [address] [place], [place] [address] [place] (15 min) Moderate 10/12/2015 Patient Education: [...] Completed 08/17/2015 Appointment: [facility]are[facility]ega WPtel[facility] [address] [facility] [place] (15 min) Moderate 08/11/2015 Appointment: [...] 2 05/19/2015 Appointment: Yarely Vega WPtel: [phone] [facility] (30 min) Complex 05/19/2015 Patient Education: [...] alprazolam. 01/13/2015 Appointment: Yarely Vega WPtel: [phone] [facility] [place] (15 min) Moderate 01/13/2015 Patient [...] medications. 12/16/2014 Appointment: Janet [facility]Ptel[phone] [place] ([place]) New Patient 12/16/2014 [...] is worsening or does not improve. . Chest Pain - pt states that [...] DOPA paperwork for health care surrogate. . Rlqzfu-vhczjhwtg-qvajkrhy protonix-follow up with Dr Navarro as scheduled Cough-recent bronchitis-symptoms improved-call if symptoms do not completely resolve ask the heart doctor if there is [...] Fatigue/malaise -Pt was advsied to ask the [employer] Maintenance Manager the following: ask the heart doctor if [...] Fatigue/malaise -Pt was advsied to ask the Auto Fleet Maintenance Manager the following: ask the heart doctor if [...] patients recent sleep study - recommended [place] patient eval of pt - nocturnal oxygen [...] wall. Fatigue - pt to discuss with [employer] Maintenance Manager about the possibility of amiodarone causing [...]
--- OUTSIDE RECORDS SUMMARY | 2018-12-05 18:17 | XMS REPORT | CCD ---
Author Author [facility] Organization [facility] Address [address] [place] [address] Phone Care Team Providers Care District Plant Superintendent Name Role Phone PP Unavailable CCM Unavailable Summary Purpose Interface Exchange Insurance Providers Payer name Policy type / Coverage type Covered libertarian ID Effective Begin Date Effective End Date WPS Medicare Part B Medicare Part B [id number] Unknown Principal Life Insurance Medicare Part B [id number] Unknown [employer] in [place] Medicare Part B [id number] Unknown Family history Brother Diagnosis Age At Onset Heart Attack Unknown Mother Diagnosis Age At Onset Hypertension Unknown kidney disease Unknown Stroke Unknown Father Diagnosis Age At Onset Arthritis Unknown Social History Social History Element Codes Description Effective Dates Employment Unknown Retired worked at [employer] 11/20/2017 Marital status Unknown Single 12/16/[address]: 5669347 Former smoker 12/16/[address]: 778265310 Never drinks alcohol 12/16/2014 Allergies, Adverse Reactions, Alerts Substance Reaction Codes Entered Date Inactivated Date Status CODEINE RxNorm: 2670 05/25/2016 No Inactive Date Active ciprofloxacin RxNorm: 46911 12/16/2014 No Inactive Date Active MORPHINE SULFATE RxNorm: 7052 12/16/2014 No Inactive Date Active Penicillin Unknown 11/10/2015 No Inactive Date Active Past Medical History Illness Codes Condition Status Onset Date Resolved Date 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 Active 06/05/2017 Unknown 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 Active 07/04/2016 Unknown 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-9: 281.0 ICD-10: D51.0 Active 05/25/2017 Unknown Essential (primary) hypertension ICD-9: 401.9 ICD-10: [...] ICD-10: D51.8 07/04/2016 Active 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-9: 281.0 ICD-10: D51.0 05/25/2017 Active Essential (primary) hypertension ICD-9: 401.9 ICD-10: [...] (vit B-12) 1,000 mcg/mL injection solution RxNorm: 213073 Milliliter(s) Inj 07/19/2018 07/19/2018 Inactive hydrocodone 5 mg-acetaminophen 325 mg tablet RxNorm: 432357 1-2 Tablet(s) PO Q6 as needed for pain 07/18/2018 08/16/2018 Active betamethasone valerate 0.1 % topical ointment RxNorm: 633653 1 TOP BID 07/04/2018 07/03/2018 Inactive applying to skin under nose x 10 days cyanocobalamin (vit B-12) 1,000 mcg/mL injection solution RxNorm: 443478 Milliliter(s) Inj 07/04/2018 07/04/2018 Inactive betamethasone valerate 0.1 % topical ointment RxNorm: 637621 1 TOP BID 07/04/2018 07/13/2018 Inactive applying to skin under nose x 10 days Aricept 10 mg tablet RxNorm: 763157 Tablet(s) 1 Tablet(s) PO daily 06/25/2018 06/19/2019 Active Flonase Allergy Relief 50 mcg/actuation nasal spray,suspension RxNorm: 4842869 Pandora 1 Pandora NASAL BID 06/20/2018 10/17/2018 Active cyanocobalamin (vit B-12) 1,000 mcg/mL injection solution RxNorm: 043691 Milliliter(s) Inj 06/20/2018 06/20/2018 Inactive hydrocodone 5 mg-acetaminophen 325 mg tablet RxNorm: 283105 1-2 Tablet(s) PO Q6 as needed for pain 06/20/2018 07/17/2018 Inactive cyanocobalamin (vit B-12) 1,000 mcg/mL injection solution RxNorm: 456143 Milliliter(s) Inj 06/06/2018 06/06/2018 Inactive alprazolam 0.25 mg tablet RxNorm: 316489 1 Tablet(s) PO BID 05/25/2018 08/22/2018 Active hydrocodone 5 mg-acetaminophen 325 mg tablet RxNorm: 826782 1-2 Tablet(s) PO Q6 as needed for pain 05/24/2018 06/19/2018 Inactive cyanocobalamin (vit B-12) 1,000 mcg/mL injection solution RxNorm: 912664 Milliliter(s) Inj 05/24/2018 05/24/2018 Inactive cyanocobalamin (vit B-12) 1,000 mcg/mL injection solution RxNorm: 404349 Milliliter(s) Inj 05/09/2018 05/09/2018 Inactive Claritin 10 mg tablet RxNorm: 790876 TAKE 1 TABLET BY MOUTH ONCE DAILY 05/08/2018 05/02/2019 Active Generic For:CLARITIN 10MG 05/07/2018 9:13:47 AM cyanocobalamin (vit B-12) 1,000 mcg/mL injection solution RxNorm: 443002 INJECT ONE 1 ML EVERY TWO WEEKS 05/03/2018 04/03/2019 Active 05/03/2018 9:13:42 AM Mobic 15 mg tablet RxNorm: 390059 Tablet(s) 1 Tablet(s) PO daily 04/26/2018 04/20/2019 Active buspirone 15 mg tablet RxNorm: 200318 Tablet(s) TAKE 1 TABLET BY MOUTH TWICE DAILY 04/26/2018 04/20/2019 Active Generic For:BUSPAR 15MG 05/31/2017 9:19:20 AM Norvasc 5 mg tablet RxNorm: 684354 Tablet(s) 1 Tablet(s) PO daily 04/26/2018 04/20/2019 Active cyanocobalamin (vit B-12) 1,000 mcg/mL injection solution RxNorm: 950861 Milliliter(s) Inj 04/26/2018 04/26/2018 Inactive hydrocodone 5 mg-acetaminophen 325 mg tablet RxNorm: 269814 1-2 Tablet(s) PO Q6 as needed for pain 04/25/2018 05/23/2018 Inactive cyanocobalamin (vit B-12) 1,000 mcg/mL injection solution RxNorm: 985423 Milliliter(s) Inj 04/12/2018 04/12/2018 Inactive Topamax 25 mg tablet RxNorm: 430344 1 Tablet(s) PO BID 04/09/2018 05/02/2018 Inactive Generic For:TOPAMAX 25MG 12/06/2016 9:15:13 AM Zoloft 50 mg tablet RxNorm: 263323 TAKE 1 TABLET BY MOUTH ONCE DAILY 04/04/2018 12/29/2018 Active Generic For:ZOLOFT 50MG 04/04/2018 9:13:25 AM cyanocobalamin (vit B-12) 1,000 mcg/mL injection solution RxNorm: 145632 Milliliter(s) Inj 03/30/2018 03/30/2018 Inactive levothyroxine 125 mcg tablet RxNorm: 098130 TAKE 1 TABLET BY MOUTH EVERY DAY 03/26/2018 09/21/2018 Active Generic For:SYNTHROID 125MCG TAB 03/26/2018 9:15:59 AM liothyronine 5 mcg tablet RxNorm: 777494 TAKE 1 TABLET BY MOUTH TWICE DAILY 03/26/2018 09/21/2018 Active Generic For:CYTOMEL 5MCG 03/26/2018 9:15:54 AM hydrocodone 5 mg-acetaminophen 325 mg tablet RxNorm: 828042 1-2 Tablet(s) PO Q6 as needed for pain 03/19/2018 04/17/2018 Inactive cyanocobalamin (vit B-12) 1,000 mcg/mL injection solution RxNorm: 260763 Milliliter(s) Inj 03/16/2018 03/16/2018 Inactive Flonase Allergy Relief 50 mcg/actuation nasal spray,suspension RxNorm: 0173388 1 Pandora NASAL BID 03/05/2018 06/19/2018 Inactive cyanocobalamin (vit B-12) 1,000 mcg/mL injection solution RxNorm: 293647 Milliliter(s) Inj 03/02/2018 03/02/2018 Inactive alprazolam 0.25 mg tablet RxNorm: 388093 1 Tablet(s) PO BID 02/28/2018 05/27/2018 Inactive cyanocobalamin (vit B-12) 1,000 mcg/mL injection solution RxNorm: 720794 Milliliter(s) Inj 02/08/2018 02/08/2018 Inactive cyanocobalamin (vit B-12) 1,000 mcg/mL injection solution RxNorm: 068795 Milliliter(s) Inj 01/24/2018 01/24/2018 Inactive albuterol sulfate 2.5 mg/3 mL (0.083 %) solution for nebulization RxNorm: 427689 3 Milliliter(s) INH Q6 PRN 01/24/2018 05/02/2018 Inactive Claritin 10 mg tablet RxNorm: 997573 1 Tablet(s) PO daily 01/15/2018 05/07/2018 Inactive cyanocobalamin (vit B-12) 1,000 mcg/mL injection solution RxNorm: 891542 Milliliter(s) Inj 01/10/2018 01/10/2018 Inactive hydrocodone 5 mg-acetaminophen 325 mg tablet RxNorm: 057686 1-2 Tablet(s) PO Q6 as needed for pain 01/09/2018 02/07/2018 Inactive cyanocobalamin (vit B-12) 1,000 mcg/mL injection solution RxNorm: 076356 Milliliter(s) Inj 12/27/2017 12/27/2017 Inactive cyanocobalamin (vit B-12) 1,000 mcg/mL injection solution RxNorm: 065135 1 Milliliter(s) Inj 12/12/2017 12/12/2017 Inactive Zofran ODT 4 mg disintegrating tablet RxNorm: 010071 1 Tablet(s) PO TID as needed 12/08/2017 12/09/2017 Inactive hydrocodone 2.5 mg-guaifenesin 200 mg/5 mL oral solution RxNorm: 852840 5 Milliliter(s) PO 12/04/2017 05/06/2018 Inactive doxycycline hyclate 100 mg capsule RxNorm: 4098022 1 Capsule(s) PO BID 12/04/2017 12/13/2017 Inactive cyanocobalamin (vit B-12) 1,000 mcg/mL injection solution RxNorm: 660254 Milliliter(s) Inj 12/01/2017 12/01/2017 Inactive Flonase Allergy Relief 50 mcg/actuation nasal spray,suspension RxNorm: 2722861 1 Pandora NASAL BID 11/20/2017 2018 Inactive cyanocobalamin (vit B-12) 1,000 mcg/mL injection solution RxNorm: 756867 1 Milliliter(s) Inj 11/17/2017 11/17/2017 Inactive hydrocodone 5 mg-acetaminophen 325 mg tablet RxNorm: 003403 1-2 Tablet(s) PO Q6 as needed for pain 11/16/2017 12/15/2017 Inactive cyanocobalamin (vit B-12) 1,000 mcg/mL injection solution RxNorm: 001454 1 Milliliter(s) Inj 11/02/2017 11/02/2017 Inactive hydrocodone 5 mg-acetaminophen 325 mg tablet RxNorm: 253088 1-2 Tablet(s) PO Q6 as needed for pain 10/25/2017 11/15/2017 Inactive Claritin 10 mg tablet RxNorm: 423597 1 Tablet(s) PO daily 10/25/2017 11/19/2017 Inactive albuterol sulfate 2.5 mg/3 mL (0.083 %) solution for nebulization RxNorm: 874351 3 Milliliter(s) INH Q6 PRN 10/25/2017 01/23/2018 Inactive Claritin 10 mg tablet RxNorm: 777966 1 Tablet(s) PO daily 10/25/2017 10/24/2017 Inactive cyanocobalamin (vit B-12) 1,000 mcg/mL injection solution RxNorm: 198243 1 Milliliter(s) Inj 10/20/2017 10/20/2017 Inactive Zoloft 50 mg tablet RxNorm: 069693 TAKE 1 TABLET BY MOUTH ONCE DAILY 10/13/2017 04/03/2018 Inactive Generic For:ZOLOFT 50MG 10/13/2017 8:59:44 AM cyanocobalamin (vit B-12) 1,000 mcg/mL injection solution RxNorm: 846951 Milliliter(s) Inj 10/06/2017 10/06/2017 Inactive liothyronine 5 mcg tablet RxNorm: 910896 TAKE 1 TABLET BY MOUTH TWICE DAILY 10/03/2017 03/25/2018 Inactive Generic For:CYTOMEL 5MCG 10/03/2017 9:13:38 AM cyanocobalamin (vit B-12) 1,000 mcg/mL injection solution RxNorm: 473610 Milliliter(s) Inj 09/21/2017 09/21/2017 Inactive albuterol sulfate 2.5 mg/3 mL (0.083 %) solution for nebulization RxNorm: 746650 3 Milliliter(s) INH Q6 PRN 09/21/2017 10/24/2017 Inactive hydrocodone 5 mg-acetaminophen 325 mg tablet RxNorm: 998553 1-2 Tablet(s) PO Q6 as needed for pain 09/21/2017 10/20/2017 Inactive Kenalog 40 mg/mL suspension for injection RxNorm: 2652890 Milliliter(s) Inj 09/15/2017 09/15/2017 Inactive Keflex 500 mg capsule RxNorm: 113399 1 Capsule(s) PO TID 09/07/2017 09/16/2017 Inactive Please deliver to patient cyanocobalamin (vit B-12) 1,000 mcg/mL injection solution RxNorm: 001709 Milliliter(s) Inj 09/07/2017 09/07/2017 Inactive alprazolam 0.25 mg tablet RxNorm: 387749 1 Tablet(s) PO BID 09/06/2017 02/27/2018 Inactive Aricept 10 mg tablet RxNorm: 575066 1 Tablet(s) PO daily 09/06/2017 06/24/2018 Inactive hydrocodone 5 mg-acetaminophen 325 mg tablet RxNorm: 934132 1-2 Tablet(s) PO Q6 as needed for pain 08/24/2017 09/20/2017 Inactive cyanocobalamin (vit B-12) 1,000 mcg/mL injection solution RxNorm: 609967 Milliliter(s) Inj 08/24/2017 08/24/2017 Inactive Norvasc 5 mg tablet RxNorm: 230168 1 Tablet(s) PO daily 08/18/2017 04/25/2018 Inactive nystatin 100,000 unit/gram topical powder RxNorm: 816548 1 Gram(s) TOP QID 08/17/2017 08/26/2017 Inactive hydrocodone 5 mg-acetaminophen 325 mg tablet RxNorm: 028561 1-2 Tablet(s) PO Q6 as needed for pain 07/25/2017 08/23/2017 Inactive Tamiflu 75 mg capsule RxNorm: 840424 1 Capsule(s) PO BID 07/24/2017 12/11/2017 Inactive nystatin 100,000 unit/gram topical powder RxNorm: 595761 1 Gram(s) TOP QID 07/14/2017 07/22/2017 Inactive levothyroxine 125 mcg tablet RxNorm: 029000 Tablet(s) 1 Tablet(s) PO daily 07/10/2017 01/05/2018 Inactive nystatin 100,000 unit/gram topical powder RxNorm: 319796 1 Gram(s) TOP QID 07/06/2017 07/13/2017 Inactive cyanocobalamin (vit B-12) 1,000 mcg/mL injection solution RxNorm: 368558 Milliliter(s) Inj 07/06/2017 07/06/2017 Inactive Kenalog 40 mg/mL suspension for injection RxNorm: 6555384 1 Milliliter(s) Inj 06/20/2017 06/20/2017 Inactive doxycycline hyclate 100 mg capsule RxNorm: 4126740 1 Capsule(s) PO BID 06/20/2017 06/26/2017 Inactive cyanocobalamin (vit B-12) 1,000 mcg/mL injection solution RxNorm: 824277 Milliliter(s) Inj 06/20/2017 06/20/2017 Inactive Keflex 500 mg capsule RxNorm: 715028 1 Capsule(s) PO TID 06/14/2017 06/23/2017 Inactive Please deliver to patient Mobic 15 mg tablet RxNorm: 367130 1 Tablet(s) PO daily 06/14/2017 04/25/2018 Inactive cyanocobalamin (vit B-12) 1,000 mcg/mL injection solution RxNorm: 052173 Milliliter(s) Inj 06/05/2017 06/05/2017 Inactive buspirone 15 mg tablet RxNorm: 224162 TAKE 1 TABLET BY MOUTH TWICE DAILY 05/31/2017 04/25/2018 Inactive Generic For:BUSPAR 15MG 05/31/2017 9:19:20 AM cyanocobalamin (vit B-12) 1,000 mcg/mL injection solution RxNorm: 489469 Milliliter(s) Inj 05/25/2017 05/25/2017 Inactive hydrocodone 5 mg-acetaminophen 325 mg tablet RxNorm: 687661 1-2 Tablet(s) PO Q6 as needed for pain 05/25/2017 06/23/2017 Inactive amiodarone 200 mg tablet RxNorm: 534037 1/2 Tablet(s) PO daily 05/22/2017 No Stop Date Active cardiology decreased to 100mg daily cyanocobalamin (vit B-12) 1,000 mcg/mL injection solution RxNorm: 637051 Milliliter(s) Inj 05/16/2017 05/16/2017 Inactive Zofran ODT 4 mg disintegrating tablet RxNorm: 944067 1 Tablet(s) PO TID as needed 05/03/2017 05/04/2017 Inactive hydrocodone 5 mg-acetaminophen 325 mg tablet RxNorm: 870699 1-2 Tablet(s) PO Q6 as needed for pain 05/01/2017 05/05/2017 Inactive cyanocobalamin (vit B-12) 1,000 mcg/mL injection solution RxNorm: 144177 1 Milliliter(s) Inj 05/01/2017 05/01/2017 Inactive cyanocobalamin (vit B-12) 1,000 mcg/mL injection solution RxNorm: 749477 INJECT ONE 1 ML EVERY TWO WEEKS 04/26/2017 12/04/2018 Active 04/26/2017 9:08:52 AM Zoloft 50 mg tablet RxNorm: 034043 Tablet(s) TAKE 1 TABLET BY MOUTH DAILY 04/25/2017 10/12/2017 Inactive Generic For:ZOLOFT 50MG cyanocobalamin (vit B-12) 1,000 mcg/mL injection solution RxNorm: 612662 Milliliter(s) Inj 04/18/2017 04/18/2017 Inactive liothyronine 5 mcg tablet RxNorm: 971661 1 Tablet(s) PO BID 04/13/2017 10/02/2017 Inactive cyanocobalamin (vit B-12) 1,000 mcg/mL injection solution RxNorm: 991321 Milliliter(s) Inj 04/06/2017 04/06/2017 Inactive hydrocodone 5 mg-acetaminophen 325 mg tablet RxNorm: 611353 1-2 Tablet(s) PO Q6 as needed for pain 04/06/2017 04/10/2017 Inactive cyanocobalamin (vit B-12) 1,000 mcg/mL injection solution RxNorm: 854824 Milliliter(s) Inj 03/22/2017 03/22/2017 Inactive alprazolam 0.25 mg tablet RxNorm: 266232 1 Tablet(s) PO BID 03/17/2017 12/11/2017 Inactive alprazolam 0.25 mg tablet RxNorm: 165333 1 Tablet(s) PO BID 03/16/2017 09/05/2017 Inactive hydrocodone 5 mg-acetaminophen 325 mg tablet RxNorm: 464367 1-2 Tablet(s) PO Q6 as needed for pain 03/09/2017 03/13/2017 Inactive cyanocobalamin (vit B-12) 1,000 mcg/mL injection solution RxNorm: 340900 Milliliter(s) Inj 03/09/2017 03/09/2017 Inactive cyanocobalamin (vit B-12) 1,000 mcg/mL injection solution RxNorm: 128007 Milliliter(s) Inj 02/23/2017 02/23/2017 Inactive cyanocobalamin (vit B-12) 1,000 mcg/mL injection solution RxNorm: 096190 Milliliter(s) Inj 02/09/2017 02/09/2017 Inactive hydrocodone 5 mg-acetaminophen 325 mg tablet RxNorm: 184038 1-2 Tablet(s) PO Q6 as needed for pain 02/08/2017 02/12/2017 Inactive Topamax 25 mg tablet RxNorm: 358243 1 Tablet(s) PO BID 01/23/2017 05/22/2017 Inactive Generic For:TOPAMAX 25MG 12/06/2016 9:15:13 AM cyanocobalamin (vit B-12) 1,000 mcg/mL injection solution RxNorm: 234016 Milliliter(s) Inj 01/23/2017 01/23/2017 Inactive cyanocobalamin (vit B-12) 1,000 mcg/mL injection solution RxNorm: 072435 Milliliter(s) Inj 01/10/2017 01/10/2017 Inactive hydrocodone 5 mg-acetaminophen 325 mg tablet RxNorm: 315977 1-2 Tablet(s) PO Q6 as needed for pain 01/09/2017 01/13/2017 Inactive cyanocobalamin (vit B-12) 1,000 mcg/mL injection solution RxNorm: 696210 1 Milliliter(s) Inj 12/28/2016 12/28/2016 Inactive cyanocobalamin (vit B-12) 1,000 mcg/mL injection solution RxNorm: 349248 Milliliter(s) Inj 12/14/2016 12/14/2016 Inactive buspirone 15 mg tablet RxNorm: 994417 1 Tablet(s) PO BID 12/12/2016 05/30/2017 Inactive hydrocodone 5 mg-acetaminophen 325 mg tablet RxNorm: 730138 1-2 Tablet(s) PO Q6 as needed for pain 12/08/2016 12/12/2016 Inactive Topamax 25 mg tablet RxNorm: 160887 TAKE 1 TABLET BY MOUTH EVERY DAY AT BEDTIME 12/06/2016 01/22/2017 Inactive Generic For:TOPAMAX 25MG 12/06/2016 9:15:13 AM Lac-Hydrin Five 5 % lotion RxNorm: 817037 1 Gram(s) TOP daily 12/02/2016 05/02/2018 Inactive cyanocobalamin (vit B-12) 1,000 mcg/mL injection solution RxNorm: 943027 Milliliter(s) Inj 11/24/2016 11/24/2016 Inactive Ceftin 500 mg tablet RxNorm: 564817 1 Tablet(s) PO BID 11/11/2016 06/13/2017 Inactive Cipro 500 mg tablet RxNorm: 678226 1 Tablet(s) PO BID 11/11/2016 11/10/2016 Inactive Cipro 500 mg tablet RxNorm: 459934 1 Tablet(s) PO BID 11/11/2016 11/11/2016 Inactive cyanocobalamin (vit B-12) 1,000 mcg/mL injection solution RxNorm: 532053 1 Milliliter(s) Inj 11/07/2016 11/07/2016 Inactive hydrocodone 5 mg-acetaminophen 325 mg tablet RxNorm: 353222 1-2 Tablet(s) PO Q6 as needed for pain 11/02/2016 11/06/2016 Inactive cyanocobalamin (vit B-12) 1,000 mcg/mL injection solution RxNorm: 138538 Milliliter(s) Inj 10/24/2016 10/24/2016 Inactive levothyroxine 125 mcg tablet RxNorm: 588316 Tablet(s) 1 Tablet(s) PO daily 10/24/2016 04/21/2017 Inactive liothyronine 5 mcg tablet RxNorm: 524358 1 Tablet(s) PO BID 10/24/2016 04/12/2017 Inactive hydrocodone 5 mg-acetaminophen 325 mg tablet RxNorm: 463186 1-2 Tablet(s) PO Q6 as needed for pain 10/17/2016 10/21/2016 Inactive Keflex 500 mg capsule RxNorm: 794242 1 Capsule(s) PO TID 10/07/2016 10/06/2016 Inactive Keflex 500 mg capsule RxNorm: 756874 1 Capsule(s) PO TID 10/07/2016 10/16/2016 Inactive Please deliver to patient cyanocobalamin (vit B-12) 1,000 mcg/mL injection solution RxNorm: 428541 1 Milliliter(s) Inj 09/29/2016 09/29/2016 Inactive alprazolam 0.25 mg tablet RxNorm: 049085 1 Tablet(s) PO BID 09/20/2016 03/16/2017 Inactive Cozaar 100 mg tablet RxNorm: 892601 1 Tablet(s) PO daily 09/14/2016 No Stop Date Active metoprolol tartrate 50 mg tablet RxNorm: 761417 1/2 Tablet(s) PO BID 09/14/2016 12/12/2016 Inactive Zoloft 50 mg tablet RxNorm: 294408 Tablet(s) TAKE 1 TABLET BY MOUTH DAILY 09/14/2016 03/12/2017 Inactive Generic For:ZOLOFT 50MG liothyronine 5 mcg tablet RxNorm: 707582 1 Tablet(s) PO BID 09/14/2016 10/23/2016 Inactive Calmoseptine 0.44 %-20.6 % topical ointment RxNorm: 456387 1 Application TOP BID and as needed to sore on buttocks 09/07/2016 No Stop Date Active cyanocobalamin (vit B-12) 1,000 mcg/mL injection solution RxNorm: 476621 Milliliter(s) Inj 08/29/2016 08/29/2016 Inactive hydrocodone 5 mg-acetaminophen 325 mg tablet RxNorm: 321963 1-2 Tablet(s) PO Q6 as needed for pain 08/29/2016 10/16/2016 Inactive levothyroxine 125 mcg tablet RxNorm: 345415 1 Tablet(s) PO daily 08/25/2016 10/23/2016 Inactive Topamax 25 mg tablet RxNorm: 125515 TAKE 1 TABLET BY MOUTH EVERY DAY AT BEDTIME 08/17/2016 12/05/2016 Inactive Generic For:TOPAMAX 25MG 08/17/2016 2:14:37 PM hydrocodone 5 mg-acetaminophen 325 mg tablet RxNorm: 667401 1-2 Tablet(s) PO Q6 as needed for pain 08/11/2016 08/28/2016 Inactive hydrocodone 5 mg-acetaminophen 325 mg tablet RxNorm: 469595 1 -2 Tablet(s) PO Q6 as needed for pain 08/11/2016 08/18/2016 Inactive hydrocodone 5 mg-acetaminophen 325 mg tablet RxNorm: 167650 1 Tablet(s) PO Q6 as needed for pain 08/05/2016 08/10/2016 Inactive cyanocobalamin (vit B-12) 1,000 mcg/mL injection solution RxNorm: 426688 Milliliter(s) Inj 08/04/2016 08/04/2016 Inactive Norvasc 10 mg tablet RxNorm: 581684 1 Tablet(s) PO daily 07/26/2016 07/20/2017 Inactive alprazolam 0.25 mg tablet RxNorm: 219732 1 Tablet(s) PO QHS 07/21/2016 09/19/2016 Inactive Norvasc 5 mg tablet RxNorm: 384980 1 Tablet(s) PO daily 07/21/2016 07/25/2016 Inactive levothyroxine 125 mcg tablet RxNorm: 765324 1 Tablet(s) PO daily 07/21/2016 12/11/2017 Inactive cyanocobalamin (vit B-12) 1,000 mcg/mL injection solution RxNorm: 646631 Milliliter(s) Inj 07/21/2016 07/21/2016 Inactive Zoloft 50 mg tablet RxNorm: 511574 Tablet(s) TAKE 1 TABLET BY MOUTH DAILY 07/21/2016 09/13/2016 Inactive Generic For:ZOLOFT 50MG cyanocobalamin (vit B-12) 1,000 mcg/mL injection solution RxNorm: 561674 1 Milliliter(s) Inj 07/05/2016 07/05/2016 Inactive cyanocobalamin (vit B-12) 1,000 mcg/mL injection solution RxNorm: 967823 1 Milliliter(s) Inj 06/22/2016 06/22/2016 Inactive cyanocobalamin (vit B-12) 1,000 mcg/mL injection solution RxNorm: 931302 Milliliter(s) Inj 06/09/2016 06/09/2016 Inactive Aricept 10 mg tablet RxNorm: 401409 1 Tablet(s) PO daily 05/27/2016 05/21/2017 Inactive Mobic 15 mg tablet RxNorm: 232911 1 Tablet(s) PO daily 05/27/2016 05/21/2017 Inactive levothyroxine 125 mcg tablet RxNorm: 818198 1 Tablet(s) PO daily 05/25/2016 07/20/2016 Inactive cyanocobalamin (vit B-12) 1,000 mcg/mL injection solution RxNorm: 611773 1 Milliliter(s) Inj 05/25/2016 05/25/2016 Inactive doxycycline hyclate 100 mg capsule RxNorm: 1968096 1 Capsule(s) PO BID 05/16/2016 05/15/2016 Inactive doxycycline hyclate 100 mg capsule RxNorm: 5881631 1 Capsule(s) PO BID 05/16/2016 05/22/2016 Inactive cyanocobalamin (vit B-12) 1,000 mcg/mL injection solution RxNorm: 789212 Milliliter(s) Inj 05/10/2016 05/10/2016 Inactive cyanocobalamin (vit B-12) 1,000 mcg/mL injection solution RxNorm: 340188 Milliliter(s) Inj 04/26/2016 04/26/2016 Inactive Topamax 25 mg tablet RxNorm: 077321 1 Tablet(s) PO QPM 04/22/2016 08/16/2016 Inactive cyanocobalamin (vit B-12) 1,000 mcg/mL injection solution RxNorm: 750933 Milliliter(s) 1 Milliliter(s) Inj L3lidbd 04/11/2016 12/31/2017 Inactive liothyronine 5 mcg tablet RxNorm: 980011 1 Tablet(s) PO BID 04/11/2016 09/13/2016 Inactive cyanocobalamin (vit B-12) 1,000 mcg/mL injection solution RxNorm: 074374 Milliliter(s) Inj 04/11/2016 04/11/2016 Inactive cyanocobalamin (vit B-12) 1,000 mcg/mL injection solution RxNorm: 220865 Milliliter(s) Inj 03/31/2016 03/31/2016 Inactive cyanocobalamin (vit B-12) 1,000 mcg/mL injection solution RxNorm: 128228 1 Milliliter(s) Inj 03/15/2016 03/15/2016 Inactive levothyroxine 125 mcg tablet RxNorm: 581869 1 Tablet(s) PO daily 2016 03/03/2016 Inactive levothyroxine 125 mcg tablet RxNorm: 227959 1 Tablet(s) PO daily 2016 05/24/2016 Inactive cyanocobalamin (vit B-12) 1,000 mcg/mL injection solution RxNorm: 045652 Milliliter(s) Inj 02/25/2016 02/25/2016 Inactive cyanocobalamin (vit B-12) 1,000 mcg/mL injection solution RxNorm: 775359 1 Milliliter(s) Inj 02/02/2016 02/02/2016 Inactive sucralfate 1 gram tablet RxNorm: 879691 1 Tablet(s) PO QHS 01/25/2016 No Stop Date Active amiodarone 200 mg tablet RxNorm: 143475 1/2 Tablet(s) PO BID 01/25/2016 05/21/2017 Inactive cyanocobalamin (vit B-12) 1,000 mcg/mL injection solution RxNorm: 364157 Milliliter(s) Inj 01/18/2016 01/18/2016 Inactive cyanocobalamin (vit B-12) 1,000 mcg/mL injection solution RxNorm: 475382 Milliliter(s) Inj 12/29/2015 12/29/2015 Inactive Topamax 25 mg tablet RxNorm: 810117 1 Tablet(s) PO QPM 12/08/2015 04/05/2016 Inactive cyanocobalamin (vit B-12) 1,000 mcg/mL injection solution RxNorm: 084441 Milliliter(s) Inj 12/08/2015 12/08/2015 Inactive Bactrim DS 800 mg-160 mg tablet RxNorm: 440668 1 Tablet(s) PO BID 11/23/2015 11/22/2015 Inactive cyanocobalamin (vit B-12) 1,000 mcg/mL injection solution RxNorm: 330623 Milliliter(s) Inj 11/23/2015 11/23/2015 Inactive Bactrim DS 800 mg-160 mg tablet RxNorm: 059003 1 Tablet(s) PO BID 11/23/2015 11/29/2015 Inactive cyanocobalamin (vit B-12) 1,000 mcg/mL injection solution RxNorm: 624445 Milliliter(s) Inj 11/11/2015 11/11/2015 Inactive amoxicillin 500 mg capsule RxNorm: 689831 1 Capsule(s) PO TID 11/10/2015 11/19/2015 Inactive Zithromax Z-Henrique 250 mg tablet RxNorm: 282508 1 Tablet(s) PO UD 11/10/2015 01/24/2016 Inactive zpack x 1 amoxicillin 500 mg capsule RxNorm: 954169 1 Capsule(s) PO TID 11/10/2015 11/09/2015 Inactive cyanocobalamin (vit B-12) 1,000 mcg/mL injection solution RxNorm: 810098 1 Milliliter(s) Inj 10/29/2015 10/29/2015 Inactive Creighton 3 capsule RxNorm: 1 Capsule(s) PO QAM , 2 Capsules at noon, 1 Capsule QHS 10/13/2015 No Stop Date Active potassium chloride ER 20 mEq tablet,extended release RxNorm: 948200 2 Tablet(s) PO daily at noon 10/13/2015 No Stop Date Active alprazolam 0.25 mg tablet RxNorm: 908602 1 Tablet(s) PO QHS 10/13/2015 07/20/2016 Inactive amiodarone 200 mg tablet RxNorm: 658945 1 Tablet(s) PO BID 10/13/2015 01/24/2016 Inactive cyanocobalamin (vit B-12) 1,000 mcg/mL injection solution RxNorm: 770493 1 Milliliter(s) Inj 10/12/2015 10/12/2015 Inactive Zofran 4 mg tablet RxNorm: 880030 1 Tablet(s) PO daily as needed 10/07/2015 05/24/2016 Inactive Zoloft 50 mg tablet RxNorm: 402283 TAKE 1 TABLET BY MOUTH DAILY 10/05/2015 05/01/2016 Inactive Generic For:ZOLOFT 50MG cyanocobalamin (vit B-12) 1,000 mcg/mL injection solution RxNorm: 454706 1 Milliliter(s) Inj 09/29/2015 09/29/2015 Inactive cyanocobalamin (vit B-12) 1,000 mcg/mL injection solution RxNorm: 308691 1 Milliliter(s) Inj 09/17/2015 09/17/2015 Inactive Norvasc 5 mg tablet RxNorm: 789743 1 Tablet(s) PO daily 09/17/2015 07/20/2016 Inactive liothyronine 5 mcg tablet RxNorm: 216053 1 Tablet(s) PO BID 09/17/2015 03/14/2016 Inactive Zoloft 50 mg tablet RxNorm: 745897 1 Tablet(s) PO daily 09/17/2015 10/04/2015 Inactive buspirone 15 mg tablet RxNorm: 660941 1 Tablet(s) PO BID 09/17/2015 09/10/2016 Inactive buspirone 15 mg tablet RxNorm: 000302 1 Tablet(s) PO BID 09/14/2015 09/16/2015 Inactive Topamax 25 mg tablet RxNorm: 487543 1 Tablet(s) PO QPM 09/03/2015 12/07/2015 Inactive cyanocobalamin (vit B-12) 1,000 mcg/mL injection solution RxNorm: 090244 1 Milliliter(s) Inj 09/03/2015 09/03/2015 Inactive cyanocobalamin (vit B-12) 1,000 mcg/mL injection solution RxNorm: 592550 Milliliter(s) Inj 08/17/2015 08/17/2015 Inactive cyanocobalamin (vit B-12) 1,000 mcg/mL injection solution RxNorm: 314959 Milliliter(s) Inj 08/06/2015 08/06/2015 Inactive levothyroxine 150 mcg tablet RxNorm: 291204 1 Tablet(s) PO daily 07/22/2015 03/03/2016 Inactive Aricept 10 mg tablet RxNorm: 765745 1 Tablet(s) PO daily 07/22/2015 05/26/2016 Inactive Mobic 15 mg tablet RxNorm: 816636 1 Tablet(s) PO daily 07/22/2015 05/26/2016 Inactive cyanocobalamin (vit B-12) 1,000 mcg/mL injection solution RxNorm: 038766 Milliliter(s) Inj 07/22/2015 07/22/2015 Inactive liothyronine 5 mcg tablet RxNorm: 769295 1 Tablet(s) PO BID 07/22/2015 09/16/2015 Inactive cyanocobalamin (vit B-12) 1,000 mcg/mL injection solution RxNorm: 464832 Milliliter(s) Inj 07/08/2015 07/08/2015 Inactive cyanocobalamin (vit B-12) 1,000 mcg/mL injection solution RxNorm: 740415 Milliliter(s) Inj 06/23/2015 06/23/2015 Inactive cyanocobalamin (vit B-12) 1,000 mcg/mL injection solution RxNorm: 380231 1 Milliliter(s) Inj 06/08/2015 06/08/2015 Inactive cyanocobalamin (vit B-12) 1,000 mcg/mL injection solution RxNorm: 151679 Milliliter(s) Inj 05/27/2015 05/27/2015 Inactive Aricept 10 mg tablet RxNorm: 012765 1 Tablet(s) PO daily 05/20/2015 07/21/2015 Inactive Zofran 4 mg tablet RxNorm: 799548 1 Tablet(s) PO daily as needed 05/20/2015 06/18/2015 Inactive alprazolam 0.25 mg tablet RxNorm: 230376 1 Tablet(s) PO BID 05/20/2015 10/12/2015 Inactive Mobic 15 mg tablet RxNorm: 190888 1 Tablet(s) PO daily 05/20/2015 07/21/2015 Inactive tramadol ER 100 mg tablet,extended release 24 hr RxNorm: 584613 1 Tablet(s) PO Q6 as needed 05/13/2015 No Stop Date Active cyanocobalamin (vit B-12) 1,000 mcg/mL injection solution RxNorm: 688437 1 Milliliter(s) Inj 05/12/2015 05/12/2015 Inactive Topamax 25 mg tablet RxNorm: 824671 1 Tablet(s) PO BID (start at one pill at bedtime x 1week then twice daily thereafter) 05/12/2015 09/02/2015 Inactive cyanocobalamin (vit B-12) 1,000 mcg/mL injection kit RxNorm: 332920 kit Inj 04/30/2015 04/30/2015 Inactive cyanocobalamin (vit B-12) 1,000 mcg/mL injection solution RxNorm: 200740 Milliliter(s) Inj 04/16/2015 04/16/2015 Inactive levothyroxine 150 mcg tablet RxNorm: 449459 1 Tablet(s) PO daily 04/08/2015 07/21/2015 Inactive cyanocobalamin (vit B-12) 1,000 mcg/mL injection solution RxNorm: 297172 Milliliter(s) 1 Milliliter(s) Inj X6lpfal 04/08/2015 04/10/2016 Inactive Cytomel 5 mcg tablet RxNorm: 455374 1 Tablet(s) PO BID 04/08/2015 10/12/2015 Inactive Cytomel 5 mcg tablet RxNorm: 179818 1 Tablet(s) PO BID 04/07/2015 04/07/2015 Inactive Cytomel 5 mcg tablet RxNorm: 866518 1 Tablet(s) PO BID 04/07/2015 04/06/2015 Inactive cyanocobalamin (vit B-12) 1,000 mcg/mL injection solution RxNorm: 759602 Milliliter(s) Inj 04/02/2015 04/02/2015 Inactive cyanocobalamin (vit B-12) 1,000 mcg/mL injection solution RxNorm: 332227 Milliliter(s) Inj 03/18/2015 03/18/2015 Inactive cyanocobalamin (vit B-12) 1,000 mcg/mL injection solution RxNorm: 860085 Milliliter(s) 1 Milliliter(s) Inj O0clldl 03/18/2015 04/07/2015 Inactive cyanocobalamin (vit B-12) 1,000 mcg/mL injection solution RxNorm: 941219 1 Milliliter(s) Inj L2xlije 03/16/2015 03/17/2015 Inactive cyanocobalamin (vit B-12) 1,000 mcg/mL injection solution RxNorm: 947900 Milliliter(s) Inj 03/03/2015 03/03/2015 Inactive cyanocobalamin (vit B-12) 1,000 mcg/mL injection solution RxNorm: 928827 Milliliter(s) Inj 02/18/2015 02/18/2015 Inactive cyanocobalamin (vit B-12) 1,000 mcg/mL injection solution RxNorm: 668506 Milliliter(s) Inj 02/04/2015 02/04/2015 Inactive cyanocobalamin (vit B-12) 1,000 mcg/mL injection solution RxNorm: 694913 Milliliter(s) Inj 01/22/2015 01/22/2015 Inactive Lac-Hydrin Five 5 % lotion RxNorm: 170698 1 TOP daily 01/13/2015 03/13/2015 Inactive Lac-Hydrin Five 5 % lotion RxNorm: 005981 1 TOP daily 01/13/2015 01/12/2015 Inactive cyanocobalamin (vit B-12) 1,000 mcg/mL injection solution RxNorm: 022103 Milliliter(s) Inj 01/08/2015 01/08/2015 Inactive cyanocobalamin (vit B-12) 1,000 mcg/mL injection solution RxNorm: 241691 Milliliter(s) Inj 12/25/2014 12/25/2014 Inactive levothyroxine 150 mcg tablet RxNorm: 376689 1 Tablet(s) PO daily 12/24/2014 04/07/2015 Inactive tramadol 50 mg tablet RxNorm: 851337 1-2 Tablet(s) PO Q6 as needed 12/17/2014 05/12/2015 Inactive alprazolam 0.25 mg tablet RxNorm: 779079 1 Tablet(s) PO BID 12/17/2014 04/15/2015 Inactive Pradaxa 150 mg capsule RxNorm: 9366262 1 Capsule(s) PO BID 12/16/2014 No Stop Date Active metoprolol tartrate 50 mg tablet RxNorm: 120677 1/2 Tablet(s) PO BID 12/16/2014 09/13/2016 Inactive buspirone 15 mg tablet RxNorm: 962620 1 Tablet(s) PO BID 12/16/2014 09/13/2015 Inactive cyanocobalamin (vit B-12) 1,000 mcg/mL injection solution RxNorm: 475855 1 Milliliter(s) Inj F5kdach 12/16/2014 03/15/2015 Inactive cyanocobalamin (vit B-12) 1,000 mcg/mL injection solution RxNorm: 193733 1 Milliliter(s) Inj O1bpcsl 12/16/2014 12/15/2014 Inactive sucralfate 1 gram tablet RxNorm: 503961 Tablet(s) PO QID 12/16/2014 12/10/2015 Inactive cyanocobalamin (vit B-12) 1,000 mcg/mL injection solution RxNorm: 670687 Milliliter(s) Inj 12/10/2014 12/10/2014 Inactive cyanocobalamin (vit B-12) 1,000 mcg/mL injection solution RxNorm: 404932 Milliliter(s) Inj 11/26/2014 11/26/2014 Inactive Zoloft 50 mg tablet RxNorm: 409716 1 Tablet(s) PO daily 11/24/2014 06/21/2015 Inactive Zoloft 50 mg tablet RxNorm: 291312 1 Tablet(s) PO daily 11/24/2014 11/23/2014 Inactive cyanocobalamin (vit B-12) 1,000 mcg/mL injection kit RxNorm: 717536 Milliliter(s) Inj 11/12/2014 11/12/2014 Inactive cyanocobalamin (vit B-12) 1,000 mcg/mL injection solution RxNorm: 070573 Milliliter(s) Inj 10/28/2014 10/28/2014 Inactive [SAVINGS FOR NON-COVERED DRUGS -- BIN:[id number], PCN: [id number], Group: [id number], ID# [id number], Questions: . THIS IS NOT INSURANCE.] promethazine oral RxNorm: 8745 oral No Start Date Active digoxin 125 mcg tablet RxNorm: 225359 Tablet(s) PO every other day No Start Date Active furosemide 40 mg tablet RxNorm: 136751 1 Tablet(s) PO daily No Start Date Active Vitamin D3 5,000 unit tablet RxNorm: 030017 1 Tablet(s) PO daily No Start Date Active erythromycin 250 mg capsule,delayed release RxNorm: 418623 1 Capsule(s) PO AC No Start Date Active Protonix 40 mg tablet,delayed release RxNorm: 188061 1 Tablet(s) PO BID No Start Date Active Cozaar 100 mg tablet RxNorm: 235330 1 Tablet(s) PO daily No Start Date 09/13/2016 Inactive sucralfate 1 gram tablet RxNorm: 620478 Tablet(s) PO QID No Start Date 12/15/2014 Inactive amiodarone 200 mg tablet RxNorm: 748041 2 Tablet(s) PO daily No Start Date 10/13/2015 Inactive buspirone 15 mg tablet RxNorm: 650909 1 Tablet(s) PO daily No Start Date 12/15/2014 Inactive potassium chloride ER 20 mEq tablet,extended release RxNorm: 069589 1 Tablet(s) PO daily No Start Date 10/12/2015 Inactive Prilosec 40 mg capsule,delayed release RxNorm: 524997 1 Capsule(s) PO daily No Start Date 09/02/2015 Inactive Creighton 3 capsule RxNorm: Capsule(s) PO No Start Date 10/12/2015 Inactive alprazolam 0.25 mg tablet RxNorm: 199132 Tablet(s) PO QHS No Start Date 12/16/2014 Inactive levothyroxine 125 mcg tablet RxNorm: 708702 1 Tablet(s) PO daily No Start Date 12/23/2014 Inactive liothyronine 5 mcg tablet RxNorm: 004445 1 Tablet(s) PO BID No Start Date 07/21/2015 Inactive Mobic 15 mg tablet RxNorm: 516326 Tablet(s) PO daily No Start Date 05/19/2015 Inactive Norvasc 5 mg tablet RxNorm: 855018 1 Tablet(s) PO daily No Start Date 09/16/2015 Inactive Zofran 4 mg tablet RxNorm: 086732 1 Tablet(s) PO daily as needed No Start Date 05/19/2015 Inactive Tamiflu 75 mg capsule RxNorm: 693114 1 Capsule(s) PO BID No Start Date 07/23/2017 Inactive tramadol 50 mg tablet RxNorm: 451386 1 Tablet(s) PO daily as needed No Start Date 12/16/2014 Inactive amiodarone 200 mg tablet RxNorm: 907674 1 Tablet(s) PO daily No Start Date 10/12/2015 Inactive Zofran ODT 4 mg disintegrating tablet RxNorm: 403584 1 Tablet(s) PO TID as needed No Start Date 05/02/2017 Inactive albuterol sulfate 2.5 mg/3 mL (0.083 %) solution for nebulization RxNorm: 593903 3 Milliliter(s) INH Q6 PRN No Start Date 09/20/2017 Inactive meclizine 25 mg tablet RxNorm: 326670 Tablet(s) PO as needed No Start Date 05/24/2016 Inactive Pradaxa 150 mg capsule RxNorm: 3432350 1 Capsule(s) PO daily No Start Date 12/15/2014 Inactive metoprolol tartrate 50 mg tablet RxNorm: 638985 1/2 Tablet(s) PO No Start Date 12/15/2014 Inactive Aricept 10 mg tablet RxNorm: 733776 Tablet(s) PO daily No Start Date 05/19/2015 Inactive Calmoseptine 0.44 %-20.6 % topical ointment RxNorm: 418505 1 Application TOP BID and as needed to sore on buttocks No Start Date 09/06/2016 Inactive Zithromax Z-Henrique 250 mg tablet RxNorm: 691236 1 Tablet(s) PO UD No Start Date 11/09/2015 Inactive zpack x 1 Medication Administered Medication Codes Instructions Start Date Status cyanocobalamin (vit B-12) 1,000 mcg/mL injection solution RxNorm: 624715 Milliliter 07/19/2018 Active cyanocobalamin (vit B-12) 1,000 mcg/mL injection solution RxNorm: 650107 Milliliter 07/04/2018 No longer Active cyanocobalamin (vit B-12) 1,000 mcg/mL injection solution RxNorm: 865944 Milliliter 06/20/2018 No longer Active cyanocobalamin (vit B-12) 1,000 mcg/mL injection solution RxNorm: 098800 Milliliter 06/06/2018 No longer Active cyanocobalamin (vit B-12) 1,000 mcg/mL injection solution RxNorm: 638170 Milliliter 05/24/2018 No longer Active cyanocobalamin (vit B-12) 1,000 mcg/mL injection solution RxNorm: 395572 Milliliter 05/09/2018 No longer Active cyanocobalamin (vit B-12) 1,000 mcg/mL injection solution RxNorm: 980037 Milliliter 04/26/2018 No longer Active cyanocobalamin (vit B-12) 1,000 mcg/mL injection solution RxNorm: 735672 Milliliter 04/12/2018 No longer Active cyanocobalamin (vit B-12) 1,000 mcg/mL injection solution RxNorm: 784371 Milliliter 03/30/2018 No longer Active cyanocobalamin (vit B-12) 1,000 mcg/mL injection solution RxNorm: 394795 Milliliter 03/16/2018 No longer Active cyanocobalamin (vit B-12) 1,000 mcg/mL injection solution RxNorm: 099006 Milliliter 03/02/2018 No longer Active cyanocobalamin (vit B-12) 1,000 mcg/mL injection solution RxNorm: 103119 Milliliter 02/08/2018 No longer Active cyanocobalamin (vit B-12) 1,000 mcg/mL injection solution RxNorm: 135216 Milliliter 01/24/2018 No longer Active cyanocobalamin (vit B-12) 1,000 mcg/mL injection solution RxNorm: 442459 Milliliter 01/10/2018 No longer Active cyanocobalamin (vit B-12) 1,000 mcg/mL injection solution RxNorm: 300606 Milliliter 12/27/2017 No longer Active cyanocobalamin (vit B-12) 1,000 mcg/mL injection solution RxNorm: 443112 1Milliliter 12/12/2017 No longer Active cyanocobalamin (vit B-12) 1,000 mcg/mL injection solution RxNorm: 089253 Milliliter 12/01/2017 No longer Active cyanocobalamin (vit B-12) 1,000 mcg/mL injection solution RxNorm: 464539 1Milliliter 11/17/2017 No longer Active cyanocobalamin (vit B-12) 1,000 mcg/mL injection solution RxNorm: 455070 1Milliliter 11/02/2017 No longer Active cyanocobalamin (vit B-12) 1,000 mcg/mL injection solution RxNorm: 465706 1Milliliter 10/20/2017 No longer Active cyanocobalamin (vit B-12) 1,000 mcg/mL injection solution RxNorm: 326867 Milliliter 10/06/2017 No longer Active cyanocobalamin (vit B-12) 1,000 mcg/mL injection solution RxNorm: 051746 Milliliter 09/21/2017 No longer Active Kenalog 40 mg/mL suspension for injection RxNorm: 6898616 Milliliter 09/15/2017 No longer Active cyanocobalamin (vit B-12) 1,000 mcg/mL injection solution RxNorm: 560627 Milliliter 09/07/2017 No longer Active cyanocobalamin (vit B-12) 1,000 mcg/mL injection solution RxNorm: 322506 Milliliter 08/24/2017 No longer Active cyanocobalamin (vit B-12) 1,000 mcg/mL injection solution RxNorm: 158749 Milliliter 07/06/2017 No longer Active cyanocobalamin (vit B-12) 1,000 mcg/mL injection solution RxNorm: 144515 Milliliter 06/20/2017 No longer Active Kenalog 40 mg/mL suspension for injection RxNorm: 6304970 1Milliliter 06/20/2017 No longer Active cyanocobalamin (vit B-12) 1,000 mcg/mL injection solution RxNorm: 231809 Milliliter 06/05/2017 No longer Active cyanocobalamin (vit B-12) 1,000 mcg/mL injection solution RxNorm: 203538 Milliliter 05/25/2017 No longer Active cyanocobalamin (vit B-12) 1,000 mcg/mL injection solution RxNorm: 577908 Milliliter 05/16/2017 No longer Active cyanocobalamin (vit B-12) 1,000 mcg/mL injection solution RxNorm: 194716 1Milliliter 05/01/2017 No longer Active cyanocobalamin (vit B-12) 1,000 mcg/mL injection solution RxNorm: 523763 Milliliter 04/18/2017 No longer Active cyanocobalamin (vit B-12) 1,000 mcg/mL injection solution RxNorm: 470021 Milliliter 04/06/2017 No longer Active cyanocobalamin (vit B-12) 1,000 mcg/mL injection solution RxNorm: 552976 Milliliter 03/22/2017 No longer Active cyanocobalamin (vit B-12) 1,000 mcg/mL injection solution RxNorm: 352477 Milliliter 03/09/2017 No longer Active cyanocobalamin (vit B-12) 1,000 mcg/mL injection solution RxNorm: 625049 Milliliter 02/23/2017 No longer Active cyanocobalamin (vit B-12) 1,000 mcg/mL injection solution RxNorm: 530040 Milliliter 02/09/2017 No longer Active cyanocobalamin (vit B-12) 1,000 mcg/mL injection solution RxNorm: 898479 Milliliter 01/23/2017 No longer Active cyanocobalamin (vit B-12) 1,000 mcg/mL injection solution RxNorm: 567782 Milliliter 01/10/2017 No longer Active cyanocobalamin (vit B-12) 1,000 mcg/mL injection solution RxNorm: 937715 1Milliliter 12/28/2016 No longer Active cyanocobalamin (vit B-12) 1,000 mcg/mL injection solution RxNorm: 838348 Milliliter 12/14/2016 No longer Active cyanocobalamin (vit B-12) 1,000 mcg/mL injection solution RxNorm: 438891 Milliliter 11/24/2016 No longer Active cyanocobalamin (vit B-12) 1,000 mcg/mL injection solution RxNorm: 196080 1Milliliter 11/07/2016 No longer Active cyanocobalamin (vit B-12) 1,000 mcg/mL injection solution RxNorm: 101291 Milliliter 10/24/2016 No longer Active cyanocobalamin (vit B-12) 1,000 mcg/mL injection solution RxNorm: 665116 1Milliliter 09/29/2016 No longer Active cyanocobalamin (vit B-12) 1,000 mcg/mL injection solution RxNorm: 676457 Milliliter 08/29/2016 No longer Active cyanocobalamin (vit B-12) 1,000 mcg/mL injection solution RxNorm: 481775 Milliliter 08/04/2016 No longer Active cyanocobalamin (vit B-12) 1,000 mcg/mL injection solution RxNorm: 416376 Milliliter 07/21/2016 No longer Active cyanocobalamin (vit B-12) 1,000 mcg/mL injection solution RxNorm: 952004 1Milliliter 07/05/2016 No longer Active cyanocobalamin (vit B-12) 1,000 mcg/mL injection solution RxNorm: 857956 1Milliliter 06/22/2016 No longer Active cyanocobalamin (vit B-12) 1,000 mcg/mL injection solution RxNorm: 741020 Milliliter 06/09/2016 No longer Active cyanocobalamin (vit B-12) 1,000 mcg/mL injection solution RxNorm: 564145 1Milliliter 05/25/2016 No longer Active cyanocobalamin (vit B-12) 1,000 mcg/mL injection solution RxNorm: 484613 Milliliter 05/10/2016 No longer Active cyanocobalamin (vit B-12) 1,000 mcg/mL injection solution RxNorm: 150570 Milliliter 04/26/2016 No longer Active cyanocobalamin (vit B-12) 1,000 mcg/mL injection solution RxNorm: 451699 Milliliter 04/11/2016 No longer Active cyanocobalamin (vit B-12) 1,000 mcg/mL injection solution RxNorm: 879844 Milliliter 03/31/2016 No longer Active cyanocobalamin (vit B-12) 1,000 mcg/mL injection solution RxNorm: 310046 1Milliliter 03/15/2016 No longer Active cyanocobalamin (vit B-12) 1,000 mcg/mL injection solution RxNorm: 268016 Milliliter 02/25/2016 No longer Active cyanocobalamin (vit B-12) 1,000 mcg/mL injection solution RxNorm: 143630 1Milliliter 02/02/2016 No longer Active cyanocobalamin (vit B-12) 1,000 mcg/mL injection solution RxNorm: 617203 Milliliter 01/18/2016 No longer Active cyanocobalamin (vit B-12) 1,000 mcg/mL injection solution RxNorm: 397805 Milliliter 12/29/2015 No longer Active cyanocobalamin (vit B-12) 1,000 mcg/mL injection solution RxNorm: 791734 Milliliter 12/08/2015 No longer Active cyanocobalamin (vit B-12) 1,000 mcg/mL injection solution RxNorm: 427578 Milliliter 11/23/2015 No longer Active cyanocobalamin (vit B-12) 1,000 mcg/mL injection solution RxNorm: 959226 Milliliter 11/11/2015 No longer Active cyanocobalamin (vit B-12) 1,000 mcg/mL injection solution RxNorm: 740762 1Milliliter 10/29/2015 No longer Active cyanocobalamin (vit B-12) 1,000 mcg/mL injection solution RxNorm: 120884 1Milliliter 10/12/2015 No longer Active cyanocobalamin (vit B-12) 1,000 mcg/mL injection solution RxNorm: 675534 1Milliliter 09/29/2015 No longer Active cyanocobalamin (vit B-12) 1,000 mcg/mL injection solution RxNorm: 774285 1Milliliter 09/17/2015 No longer Active cyanocobalamin (vit B-12) 1,000 mcg/mL injection solution RxNorm: 089433 1Milliliter 09/03/2015 No longer Active cyanocobalamin (vit B-12) 1,000 mcg/mL injection solution RxNorm: 668432 Milliliter 08/17/2015 No longer Active cyanocobalamin (vit B-12) 1,000 mcg/mL injection solution RxNorm: 726246 Milliliter 08/06/2015 No longer Active cyanocobalamin (vit B-12) 1,000 mcg/mL injection solution RxNorm: 558471 Milliliter 07/22/2015 No longer Active cyanocobalamin (vit B-12) 1,000 mcg/mL injection solution RxNorm: 315304 Milliliter 07/08/2015 No longer Active cyanocobalamin (vit B-12) 1,000 mcg/mL injection solution RxNorm: 480164 Milliliter 06/23/2015 No longer Active cyanocobalamin (vit B-12) 1,000 mcg/mL injection solution RxNorm: 544431 1Milliliter 06/08/2015 No longer Active cyanocobalamin (vit B-12) 1,000 mcg/mL injection solution RxNorm: 092893 Milliliter 05/27/2015 No longer Active cyanocobalamin (vit B-12) 1,000 mcg/mL injection solution RxNorm: 291933 1Milliliter 05/12/2015 No longer Active cyanocobalamin (vit B-12) 1,000 mcg/mL injection kit RxNorm: 121510 kit 04/30/2015 No longer Active cyanocobalamin (vit B-12) 1,000 mcg/mL injection solution RxNorm: 557191 Milliliter 04/16/2015 No longer Active cyanocobalamin (vit B-12) 1,000 mcg/mL injection solution RxNorm: 855424 Milliliter 04/02/2015 No longer Active cyanocobalamin (vit B-12) 1,000 mcg/mL injection solution RxNorm: 719516 Milliliter 03/18/2015 No longer Active cyanocobalamin (vit B-12) 1,000 mcg/mL injection solution RxNorm: 835666 Milliliter 03/03/2015 No longer Active cyanocobalamin (vit B-12) 1,000 mcg/mL injection solution RxNorm: 152584 Milliliter 02/18/2015 No longer Active cyanocobalamin (vit B-12) 1,000 mcg/mL injection solution RxNorm: 843307 Milliliter 02/04/2015 No longer Active cyanocobalamin (vit B-12) 1,000 mcg/mL injection solution RxNorm: 729517 Milliliter 01/22/2015 No longer Active cyanocobalamin (vit B-12) 1,000 mcg/mL injection solution RxNorm: 825620 Milliliter 01/08/2015 No longer Active cyanocobalamin (vit B-12) 1,000 mcg/mL injection solution RxNorm: 049328 Milliliter 12/25/2014 No longer Active cyanocobalamin (vit B-12) 1,000 mcg/mL injection solution RxNorm: 669633 Milliliter 12/10/2014 No longer Active cyanocobalamin (vit B-12) 1,000 mcg/mL injection solution RxNorm: 314435 Milliliter 11/26/2014 No longer Active cyanocobalamin (vit B-12) 1,000 mcg/mL injection kit RxNorm: 170761 Milliliter 11/12/2014 No longer Active cyanocobalamin (vit B-12) 1,000 mcg/mL injection solution RxNorm: 172362 Milliliter 10/28/2014 No longer Active Immunizations Vaccine Codes Date Status Influenza CVX: 141 03/16/2018 completed Influenza CVX: 141 03/22/2017 completed Pneumococcal (Adult) CVX: 33 05/25/2016 completed Influenza CVX: 141 03/15/2016 completed Assessments Condition Codes Effective Dates 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 ICD-9: 266.2 07/19/2018 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 ICD-9: 281.1 07/04/2018 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 ICD-9: 281.0 06/20/2018 Type 2 diabetes mellitus without complications ICD-10: [...] 01/23/2017 Dysuria ICD-10: R30.0 ICD-9: 788.1 11/07/2016 Pain in thoracic spine ICD-10: M54.6 ICD-9: 724.1 11/02/2016 Low back pain ICD-10: M54.5 ICD-9: 724.2 11/02/2016 Generalized abdominal pain ICD-10: R10.84 ICD-9: [...] chest pain ICD-10: R07.89 ICD-9: 786.59 02/25/2016 Other hypersomnia ICD-10: G47.19 ICD-9: 780.54 01/25/2016 Hypothyroidism, unspecified ICD-10: E03.9 ICD-9: 244.9 01/25/2016 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.34 ICD-9: 327.24 01/25/2016 Acute nasopharyngitis [common cold] ICD-10: J00 [...] ICD-9: V76.12 01/22/2015 Insomnia ICD-9: 780.52 01/13/2015 ESSENTIAL HYPERTENSION ICD-9: 401.9 01/13/2015 Anxiety ICD-9: 300.00 01/13/2015 Afib ICD-9: 427.31 01/13/2015 Hypothyroidism ICD-9: 244.9 12/16/2014 DIABETES TYPE [...] (3rd IS) 3.20 uIU/mL 02/26/2018 Free T4 Lwb224 FREE T4 0.99 ng/dL 02/26/2018 Cbc With [...] 28.5 pg 02/26/2018 Cbc With Differential Ord2 Brooke% 10.3 % 02/26/2018 Cbc With Differential Ord2 [...] 1.80 K/ul 02/26/2018 Cbc With Differential Ord2 Brooke ABS# 0.7 K/ul 02/26/2018 Cbc With Differential Ord2 Eos ABS# 0.2 K/ul 02/26/2018 Cbc With Differential Ord2 Baso ABS# 0.0 K/ul 02/26/2018 B12 Eva821 B12 889.00 pg/ml 02/26/2018 Digoxin Ord9 DIGOXIN 0.7 NG/ML 11/23/2017 Comp Metabolic Rsu416 NA 142 mEq/L 11/23/2017 Comp Metabolic Dyj852 K 4.9 mEq/L 11/23/2017 Comp Metabolic Rka669 CL 112 mEq/L 11/23/2017 Comp Metabolic Dhm157 CO2 18.0 mEq/L 11/23/2017 Comp Metabolic Wip483 ANION GAP 17 11/23/2017 Comp Metabolic Jmf800 GLUCOSE 123 mg/dL 11/23/2017 Comp Metabolic Nxm345 Creat 1.0 mg/dL 11/23/2017 Comp Metabolic Tik481 eGFR 59 ml/min/1.73m2 11/23/2017 Comp Metabolic Ckr019 BUN 24 mg/dL 11/23/2017 Comp Metabolic Pkc839 B/C Ratio 25.0 Ratio 11/23/2017 Comp Metabolic Hxg164 CALCIUM 9.4 mg/dL 11/23/2017 Comp Metabolic Wtq584 ALK PHOS 56 U/L 11/23/2017 Comp Metabolic Mun151 AST(SGOT) 17 U/L 11/23/2017 Comp Metabolic Wtp251 ALT(SGPT) 16 U/L 11/23/2017 Comp Metabolic Rce851 BILI T 0.7 mg/dL 11/23/2017 Comp Metabolic Apl996 ALBUMIN 3.8 g/dL 11/23/2017 Comp Metabolic Jqb586 TPRO 6.2 g/dL 11/23/2017 Comp Metabolic Dhs252 GLOB 2.4 g/dL 11/23/2017 Comp Metabolic Ghp098 A/G Ratio 1.6 Ratio 11/23/2017 Comp Metabolic Vyy779 Osmo 289 mOsmo 11/23/2017 Free T4 Ihc165 FREE T4 1.04 ng/dL 11/23/2017 %Hba1C Dzj945 % HbA1c 75072- 6 6.4 % 11/23/2017 %Hba1C Vgi169 Gluc Ave 137 mg/dL 11/23/2017 Lipid Ord30 CHOL 179 mg/dL 11/23/2017 Lipid Ord30 HDL 51.0 mg/dl 11/23/2017 Lipid Ord30 TRIG 134 mg/dL 11/23/2017 Lipid Ord30 LDL 101 mg/dL 11/23/2017 Lipid Ord30 C/HDL 3.5 Ratio 11/23/2017 Tsh Ord6 TSH (3rd IS) 1.00 uIU/mL 11/23/2017 Microalbumin Hkn919 MicroAlb <0.7 mg/dL 11/23/2017 Comp Metabolic Jzl398 NA 141 mEq/L 01/23/2017 Comp Metabolic Sdo432 K 4.5 mEq/L 01/23/2017 Comp Metabolic Mtw926 CL 107 mEq/L 01/23/2017 Comp Metabolic Mba473 CO2 21.0 mEq/L 01/23/2017 Comp Metabolic Evz605 ANION GAP 18 01/23/2017 Comp Metabolic Fwe544 GLUCOSE 138 mg/dL 01/23/2017 Comp Metabolic Yym566 Creat 1.0 mg/dL 01/23/2017 Comp Metabolic Sir912 eGFR 56 ml/min/1.73m2 01/23/2017 Comp Metabolic Mph518 BUN 26 mg/dL 01/23/2017 Comp Metabolic Vkl073 B/C Ratio 25.7 Ratio 01/23/2017 Comp Metabolic Slr186 CALCIUM 9.0 mg/dL 01/23/2017 Comp Metabolic Dvz993 ALK PHOS 37 U/L 01/23/2017 Comp Metabolic Sws977 AST(SGOT) 20 U/L 01/23/2017 Comp Metabolic Kdz753 ALT(SGPT) 25 U/L 01/23/2017 Comp Metabolic Bwh290 BILI T 0.9 mg/dL 01/23/2017 Comp Metabolic Acj474 ALBUMIN 3.8 g/dL 01/23/2017 Comp Metabolic Bbz899 TPRO 6.5 g/dL 01/23/2017 Comp Metabolic Cbq008 GLOB 2.7 g/dL 01/23/2017 Comp Metabolic Ofn881 A/G Ratio 1.4 Ratio 01/23/2017 Comp Metabolic Nrl406 Osmo 288 mOsmo 01/23/2017 Free T4 Tyv049 FREE T4 1.05 ng/dL 01/23/2017 %Hba1C Pbe570 % HbA1c 37981- 6 6.1 % 01/23/2017 %Hba1C Dbl213 Gluc Ave 128 mg/dL 01/23/2017 Tsh Ord6 hTSH II 1.68 uIU/mL 01/23/2017 Culture Urine [id number] URINE CULTURE SEE NOTES 11/10/2016 Culture Urine [id number] Continued Results 11/10/2016 Urine Culture Ucult Complete [...] Ord15 CALCIUM 9.3 mg/dL 09/29/2016 Free T4 Nup479 FREE T4 0.99 ng/dL 09/07/2016 Cbc With [...] 30.0 pg 09/07/2016 Cbc With Differential Ord2 Brooke% 9.8 % 09/07/2016 Cbc With Differential Ord2 [...] 1.75 K/ul 09/07/2016 Cbc With Differential Ord2 Brooke ABS# 0.6 K/ul 09/07/2016 Cbc With Differential Ord2 Eos ABS# 0.1 K/ul 09/07/2016 Cbc With Differential Ord2 Baso ABS# 0.0 K/ul 09/07/2016 Tsh Ord6 hTSH II 1.41 uIU/mL 09/07/2016 Culture Urine [id number] URINE CULTURE SEE NOTES 06/27/2016 Lipid Ord30 CHOL 196 mg/dL 06/22/2016 Lipid Ord30 HDL 63.0 mg/dl 06/22/2016 Lipid Ord30 TRIG 154 mg/dL 06/22/2016 Lipid Ord30 LDL 102 mg/dL 06/22/2016 Lipid Ord30 C/HDL 3.1 Ratio 06/22/2016 Hepatic Kzf449 ALBUMIN 4.2 g/dL 06/22/2016 Hepatic Vzn897 TPRO 7.0 g/dL 06/22/2016 Hepatic Rbr702 GLOB 2.8 g/dL 06/22/2016 Hepatic Ugz049 A/G Ratio 1.5 Ratio 06/22/2016 Hepatic Eys408 ALK PHOS 54 U/L 06/22/2016 Hepatic Vle590 ALT(SGPT) 30 U/L 06/22/2016 Hepatic Gnj479 AST(SGOT) 24 U/L 06/22/2016 Hepatic Nzg852 BILI T 1.1 mg/dL 06/22/2016 Hepatic Lms118 BILI D 0.2 mg/dL 06/22/2016 Hepatic Fib471 BILI I 0.9 mg/dL 06/22/2016 Comp Metabolic Lbt153 NA 139 mEq/L 06/14/2016 Comp Metabolic Ift273 K 4.6 mEq/L 06/14/2016 Comp Metabolic Cdd701 CL 108 mEq/L 06/14/2016 Comp Metabolic Ikg279 CO2 22.0 mEq/L 06/14/2016 Comp Metabolic Iwk556 ANION GAP 14 06/14/2016 Comp Metabolic Czh831 GLUCOSE 114 mg/dL 06/14/2016 Comp Metabolic Dmk113 Creat 1.2 mg/dL 06/14/2016 Comp Metabolic Owe007 eGFR 48 ml/min/1.73m2 06/14/2016 Comp Metabolic Zdg875 BUN 24 mg/dL 06/14/2016 Comp Metabolic Lfb878 B/C Ratio 20.9 Ratio 06/14/2016 Comp Metabolic Ndt454 CALCIUM 9.9 mg/dL 06/14/2016 Comp Metabolic Dfl747 ALK PHOS 47 U/L 06/14/2016 Comp Metabolic Jlc657 AST(SGOT) 28 U/L 06/14/2016 Comp Metabolic Pky813 ALT(SGPT) 32 U/L 06/14/2016 Comp Metabolic Ogh210 BILI T 0.9 mg/dL 06/14/2016 Comp Metabolic Lni349 ALBUMIN 4.1 g/dL 06/14/2016 Comp Metabolic Lys498 TPRO 6.9 g/dL 06/14/2016 Comp Metabolic Sdf956 GLOB 2.8 g/dL 06/14/2016 Comp Metabolic Hcq280 A/G Ratio 1.5 Ratio 06/14/2016 Comp Metabolic Aan293 Osmo 282 mOsmo 06/14/2016 Tsh Ord6 hTSH II 1.26 uIU/mL 06/14/2016 Free T4 Hfh997 FREE T4 1.09 ng/dL 06/14/2016 Tsh Ord6 hTSH II 0.28 uIU/mL 02/02/2016 Digoxin Ord9 DIGOXIN 0.7 NG/ML 02/02/2016 Free T4 Mkn478 FREE T4 1.23 ng/dL 02/02/2016 Hepatic Vkk995 ALBUMIN 4.0 g/dL 02/02/2016 Hepatic Yxo970 TPRO 7.0 g/dL 02/02/2016 Hepatic Fqc080 GLOB 3.0 g/dL 02/02/2016 Hepatic Bqb561 A/G Ratio 1.3 Ratio 02/02/2016 Hepatic Qtq701 ALK PHOS 57 U/L 02/02/2016 Hepatic Xnv124 ALT(SGPT) 62 U/L 02/02/2016 Hepatic Rlz601 AST(SGOT) 54 U/L 02/02/2016 Hepatic Oro120 BILI T 0.8 mg/dL 02/02/2016 Hepatic Biu015 BILI D 0.2 mg/dL 02/02/2016 Hepatic Pal378 BILI I 0.6 mg/dL 02/02/2016 Urine Culture Ucult Preliminary No Growth Day 1 11/25/2015 Urine Culture Ucult Complete No Growth Day 2 11/25/2015 Hepatic Dcv645 ALBUMIN 3.9 g/dL 11/11/2015 Hepatic Nwf877 TPRO 7.0 g/dL 11/11/2015 Hepatic Sxp883 GLOB 3.1 g/dL 11/11/2015 Hepatic Hiz618 A/G Ratio 1.3 Ratio 11/11/2015 Hepatic Zvj231 ALK PHOS 63 U/L 11/11/2015 Hepatic Udm224 ALT(SGPT) 107 U/L 11/11/2015 Hepatic Ooo910 AST(SGOT) 101 U/L 11/11/2015 Hepatic Cxo782 BILI T 0.6 mg/dL 11/11/2015 Hepatic Jsc230 BILI D 0.1 mg/dL 11/11/2015 Hepatic Wse404 BILI I 0.5 mg/dL 11/11/2015 Comp Metabolic Ccz428 NA 138 mEq/L 10/29/2015 Comp Metabolic Ukc515 K 5.0 mEq/L 10/29/2015 Comp Metabolic Nwr801 CL 105 mEq/L 10/29/2015 Comp Metabolic Ixo703 CO2 23.0 mEq/L 10/29/2015 Comp Metabolic Jau948 ANION GAP 15 10/29/2015 Comp Metabolic Lcb689 GLUCOSE 105 mg/dL 10/29/2015 Comp Metabolic Kay721 Creat 1.0 mg/dL 10/29/2015 Comp Metabolic Ioa727 eGFR 55 ml/min/1.73m2 10/29/2015 Comp Metabolic Rpq975 BUN 20 mg/dL 10/29/2015 Comp Metabolic Ozb626 B/C Ratio 19.4 Ratio 10/29/2015 Comp Metabolic Dcn598 CALCIUM 8.8 mg/dL 10/29/2015 Comp Metabolic Wcv544 ALK PHOS 56 U/L 10/29/2015 Comp Metabolic Pao641 AST(SGOT) 66 U/L 10/29/2015 Comp Metabolic Tsk068 ALT(SGPT) 78 U/L 10/29/2015 Comp Metabolic Qhg509 BILI T 0.7 mg/dL 10/29/2015 Comp Metabolic Sza853 ALBUMIN 3.6 g/dL 10/29/2015 Comp Metabolic Jmn804 TPRO 6.6 g/dL 10/29/2015 Comp Metabolic Anr433 GLOB 3.0 g/dL 10/29/2015 Comp Metabolic Rry164 A/G Ratio 1.2 Ratio 10/29/2015 Comp Metabolic Kre826 Osmo 279 mOsmo 10/29/2015 Comp Metabolic Nqn583 NA 136 mEq/L 09/03/2015 Comp Metabolic Cei753 K 4.4 mEq/L 09/03/2015 Comp Metabolic Pcr196 CL 103 mEq/L 09/03/2015 Comp Metabolic Ozv647 CO2 24.0 mEq/L 09/03/2015 Comp Metabolic Vvy214 ANION GAP 13 09/03/2015 Comp Metabolic Zam462 GLUCOSE 87 mg/dL 09/03/2015 Comp Metabolic Prq662 Creat 1.1 mg/dL 09/03/2015 Comp Metabolic Tda808 eGFR 53 ml/min/1.73m2 09/03/2015 Comp Metabolic Hfh123 BUN 17 mg/dL 09/03/2015 Comp Metabolic Ynx119 B/C Ratio 16.2 Ratio 09/03/2015 Comp Metabolic Xcj377 CALCIUM 9.0 mg/dL 09/03/2015 Comp Metabolic Lew227 ALK PHOS 55 U/L 09/03/2015 Comp Metabolic Lmt950 AST(SGOT) 83 U/L 09/03/2015 Comp Metabolic Hnd227 ALT(SGPT) 126 U/L 09/03/2015 Comp Metabolic Zpm953 BILI T 0.9 mg/dL 09/03/2015 Comp Metabolic Hzf936 ALBUMIN 3.9 g/dL 09/03/2015 Comp Metabolic Bhg488 TPRO 6.8 g/dL 09/03/2015 Comp Metabolic Fdf041 GLOB 2.9 g/dL 09/03/2015 Comp Metabolic Aod339 A/G Ratio 1.4 Ratio 09/03/2015 Comp Metabolic Rdb495 Osmo 273 mOsmo 09/03/2015 Total T3 Ord42 TT3 0.6 ng/ml 07/09/2015 Tsh Ord6 hTSH II 1.62 uIU/mL 07/09/2015 Total T3 Ord42 TT3 0.5 ng/ml 04/02/2015 Free T4 Yaq877 FREE T4 1.23 ng/dL 04/02/2015 Tsh Ord6 [...] Procedure Codes Date THER/PROPH/DIAG INJ SC/IM CPT-4: 19841 07/19/2018 THER/PROPH/DIAG INJ SC/IM CPT-4: 95551 07/04/2018 THER/PROPH/DIAG INJ SC/IM CPT-4: 95502 06/20/2018 THER/PROPH/DIAG INJ SC/IM CPT-4: 09065 06/06/2018 VITAMIN B12 INJECTION CPT- 4: J3420 06/06/2018 THER/PROPH/DIAG INJ SC/IM CPT-4: 12160 05/24/2018 THER/PROPH/DIAG INJ SC/IM CPT-4: 48316 05/09/2018 THER/PROPH/DIAG INJ SC/IM CPT-4: 73098 04/26/2018 VITAMIN B12 INJECTION CPT- 4: J3420 04/26/2018 THER/PROPH/DIAG INJ SC/IM CPT-4: 62016 04/12/2018 THER/PROPH/DIAG INJ SC/IM CPT-4: 77448 03/30/2018 THER/PROPH/DIAG INJ SC/IM CPT-4: 36347 03/16/2018 VITAMIN B12 INJECTION CPT- 4: J3420 03/16/2018 ADMIN INFLUENZA VIRUS VAC CPT-4: G0008 03/16/2018 FLU VACC PRSV FREE INC ANTIG Formatting Model/CDA Sections, Assigned to/Nga Ojeda CPT-4: [id number] 03/16/2018 THER/PROPH/DIAG INJ SC/IM CPT-4: 76319 03/02/2018 THER/PROPH/DIAG INJ SC/IM CPT-4: 29693 02/08/2018 THER/PROPH/DIAG INJ SC/IM CPT-4: 39518 01/24/2018 THER/PROPH/DIAG INJ SC/IM CPT-4: 23285 01/10/2018 THER/PROPH/DIAG INJ SC/IM CPT-4: 40330 12/27/2017 VITAMIN B12 INJECTION CPT- 4: J3420 12/27/2017 THER/PROPH/DIAG INJ SC/IM CPT-4: 87691 12/12/2017 THER/PROPH/DIAG INJ SC/IM CPT-4: 08213 12/01/2017 VITAMIN B12 INJECTION CPT- 4: J3420 12/01/2017 THER/PROPH/DIAG INJ SC/IM CPT-4: 47497 11/17/2017 THER/PROPH/DIAG INJ SC/IM CPT-4: 68573 11/02/2017 THER/PROPH/DIAG INJ SC/IM CPT-4: 38100 10/20/2017 THER/PROPH/DIAG INJ SC/IM CPT-4: 71495 10/06/2017 THER/PROPH/DIAG INJ SC/IM CPT-4: 25955 09/21/2017 TRIAMCINOLONE ACET INJ NOS CPT-4: J3301 09/15/2017 THER/PROPH/DIAG INJ SC/IM CPT-4: 29858 09/07/2017 THER/PROPH/DIAG INJ SC/IM CPT-4: 71180 08/24/2017 THER/PROPH/DIAG INJ SC/IM CPT-4: 86900 07/06/2017 THER/PROPH/DIAG INJ SC/IM CPT-4: 35294 06/20/2017 TRIAMCINOLONE ACET INJ NOS CPT-4: J3301 06/20/2017 PPPS, SUBSEQ VISIT CPT- 4: G0439 06/05/2017 THER/PROPH/DIAG INJ SC/IM CPT-4: 05958 06/05/2017 THER/PROPH/DIAG INJ SC/IM CPT-4: 22966 05/25/2017 VITAMIN B12 INJECTION CPT- 4: J3420 05/25/2017 THER/PROPH/DIAG INJ SC/IM CPT-4: 76986 05/16/2017 THER/PROPH/DIAG INJ SC/IM CPT-4: 49522 05/01/2017 THER/PROPH/DIAG INJ SC/IM CPT-4: 42590 04/18/2017 THER/PROPH/DIAG INJ SC/IM CPT-4: 91077 04/06/2017 ADMIN INFLUENZA VIRUS VAC CPT-4: G0008 03/22/2017 FLU VACC PRSV FREE INC ANTIG CPT-4: 25639 03/22/2017 THER/PROPH/DIAG INJ SC/IM CPT-4: 26846 03/09/2017 THER/PROPH/DIAG INJ SC/IM CPT-4: 90286 02/23/2017 THER/PROPH/DIAG INJ SC/IM CPT-4: 74610 02/09/2017 THER/PROPH/DIAG INJ SC/IM CPT-4: 51549 01/23/2017 THER/PROPH/DIAG INJ SC/IM CPT-4: 94826 01/10/2017 THER/PROPH/DIAG INJ SC/IM CPT-4: 08305 12/28/2016 THER/PROPH/DIAG INJ SC/IM CPT-4: 12475 12/14/2016 THER/PROPH/DIAG INJ SC/IM CPT-4: 88059 11/24/2016 URINALYSIS NONAUTO W/O SCOPE CPT-4: 07500 11/07/2016 THER/PROPH/DIAG INJ SC/IM CPT-4: 20485 11/07/2016 THER/PROPH/DIAG INJ SC/IM CPT-4: 44304 10/24/2016 THER/PROPH/DIAG INJ SC/IM CPT-4: 33617 09/29/2016 THER/PROPH/DIAG INJ SC/IM CPT-4: 42075 08/29/2016 THER/PROPH/DIAG INJ SC/IM CPT-4: 38613 08/04/2016 THER/PROPH/DIAG INJ SC/IM CPT-4: 45433 07/21/2016 THER/PROPH/DIAG INJ SC/IM CPT-4: 31342 07/05/2016 THER/PROPH/DIAG INJ SC/IM CPT-4: 33467 06/22/2016 URINALYSIS NONAUTO W/O SCOPE CPT-4: 19994 06/22/2016 THER/PROPH/DIAG INJ SC/IM CPT-4: 20856 06/09/2016 PPPS, SUBSEQ VISIT CPT- 4: G0439 05/30/2016 ADMIN PNEUMOCOCCAL VACCINE SNOMED CT: 12071855 CPT-4: G0009 05/25/2016 Pneumococcal Polysaccharide Vaccine, 23-Valent, Ad CPT-4: 97904 05/25/2016 THER/PROPH/DIAG INJ SC/IM CPT-4: 43494 05/25/2016 THER/PROPH/DIAG INJ SC/IM CPT-4: 08242 05/10/2016 TRIAMCINOLONE ACET INJ NOS CPT-4: J3301 04/26/2016 VITAMIN B12 INJECTION CPT- 4: J3420 04/26/2016 THER/PROPH/DIAG INJ SC/IM CPT-4: 29248 04/11/2016 THER/PROPH/DIAG INJ SC/IM CPT-4: 83825 03/31/2016 ADMIN INFLUENZA VIRUS VAC CPT-4: G0008 03/15/2016 FLU VACC 4 STEPHANIE [address] YRS PLUS IM SNOMED CT: [id number] CPT-4: 93690 03/15/2016 THER/PROPH/DIAG INJ SC/IM CPT-4: 91951 02/25/2016 THER/PROPH/DIAG INJ SC/IM CPT-4: 35226 02/02/2016 THER/PROPH/DIAG INJ SC/IM CPT-4: 50021 01/18/2016 VITAMIN B12 INJECTION CPT- 4: J3420 12/29/2015 THER/PROPH/DIAG INJ SC/IM CPT-4: 66733 12/29/2015 THER/PROPH/DIAG INJ SC/IM CPT-4: 43841 12/08/2015 THER/PROPH/DIAG INJ SC/IM CPT-4: 09855 11/23/2015 URINALYSIS NONAUTO W/O SCOPE CPT-4: 65294 11/23/2015 THER/PROPH/DIAG INJ SC/IM CPT-4: 21405 11/11/2015 THER/PROPH/DIAG INJ SC/IM CPT-4: 52498 10/29/2015 THER/PROPH/DIAG INJ SC/IM CPT-4: 58617 10/12/2015 VITAMIN B12 INJECTION CPT- 4: J3420 10/12/2015 THER/PROPH/DIAG INJ SC/IM CPT-4: 21793 09/29/2015 THER/PROPH/DIAG INJ SC/IM CPT-4: 66758 09/17/2015 THER/PROPH/DIAG INJ SC/IM CPT-4: 11509 09/03/2015 THER/PROPH/DIAG INJ SC/IM CPT-4: 12155 08/17/2015 THER/PROPH/DIAG INJ SC/IM CPT-4: 67016 08/06/2015 THER/PROPH/DIAG INJ SC/IM CPT-4: 56244 07/22/2015 THER/PROPH/DIAG INJ SC/IM CPT-4: 41982 07/08/2015 THER/PROPH/DIAG INJ SC/IM CPT-4: 32376 06/23/2015 THER/PROPH/DIAG INJ SC/IM CPT-4: 56101 06/08/2015 THER/PROPH/DIAG INJ SC/IM CPT-4: 17094 05/27/2015 DESTRUCT PREMALG LESION CPT-4: 51661 05/19/2015 DESTRUCT PREMALG LES 2-14 CPT-4: 52324 05/19/2015 THER/PROPH/DIAG INJ SC/IM CPT-4: 29553 05/12/2015 VITAMIN B12 INJECTION CPT- 4: J3420 05/12/2015 THER/PROPH/DIAG INJ SC/IM CPT-4: 36961 04/30/2015 VITAMIN B12 INJECTION CPT- 4: J3420 04/30/2015 THER/PROPH/DIAG INJ SC/IM CPT-4: 19600 04/16/2015 THER/PROPH/DIAG INJ SC/IM CPT-4: 30105 04/02/2015 VITAMIN B12 INJECTION CPT- 4: J3420 04/02/2015 THER/PROPH/DIAG INJ SC/IM CPT-4: 47720 03/18/2015 THER/PROPH/DIAG INJ SC/IM CPT-4: 92099 03/03/2015 THER/PROPH/DIAG INJ SC/IM CPT-4: 51670 02/18/2015 THER/PROPH/DIAG INJ SC/IM CPT-4: 66365 02/04/2015 VITAMIN B12 INJECTION CPT- 4: J3420 02/04/2015 THER/PROPH/DIAG INJ SC/IM CPT-4: 59108 01/22/2015 THER/PROPH/DIAG INJ SC/IM CPT-4: 21656 01/08/2015 VITAMIN B12 INJECTION CPT- 4: J3420 01/08/2015 THER/PROPH/DIAG INJ SC/IM CPT-4: 97337 12/25/2014 VITAMIN B12 INJECTION CPT- 4: J3420 12/25/2014 THER/PROPH/DIAG INJ SC/IM CPT-4: 90147 12/10/2014 VITAMIN B12 INJECTION CPT- 4: J3420 12/10/2014 THER/PROPH/DIAG INJ SC/IM CPT-4: 85149 11/26/2014 VITAMIN B12 INJECTION CPT- 4: J3420 11/26/2014 THER/PROPH/DIAG INJ SC/IM CPT-4: 60389 11/12/2014 VITAMIN B12 INJECTION CPT- 4: J3420 11/12/2014 THER/PROPH/DIAG INJ SC/IM CPT-4: 51861 10/28/2014 Vital Signs Date Vital 05/03/2018 Blood Pressure 1: 140/70 Code: 8480-6 BMI: 26.0 Code: 85424-0 Heart Rate 1: 70 bpm Height: 5'6" SpO2: 94% Weight: 161 lbs 04/26/2018 Height: 5'6" 02/26/2018 Blood Pressure 1: 130/72 Code: 8480-6 BMI: 27.9 Code: 85362-1 Heart Rate 1: 72 bpm Height: 5'6" SpO2: 93% Weight: 173 lbs 12/12/2017 Blood Pressure 1: 126/74 Code: 8480-6 BMI: 27.4 Code: 33995-9 Heart Rate 1: 83 bpm Height: 5'6" SpO2: 98% Weight: 170 lbs 12/04/2017 Blood Pressure 1: 104/68 Code: 8480-6 BMI: 28.2 Code: 49976-2 Heart Rate 1: 85 bpm Height: 5'6" SpO2: 95% Weight: 175 lbs 11/20/2017 Blood Pressure 1: 130/68 Code: 8480-6 BMI: 28.4 Code: 56403-9 Heart Rate 1: 80 bpm Height: 5'6" SpO2: 99% Weight: 176 lbs 11/02/2017 Height: 5'6" 09/15/2017 Blood Pressure 1: 134/74 Code: 8480-6 BMI: 28.4 Code: 82839-5 Heart Rate 1: 88 bpm Height: 5'6" SpO2: 98% Weight: 176 lbs 09/07/2017 Blood Pressure 1: 124/64 Code: 8480-6 Heart Rate 1: 90 bpm Height: SpO2: 97% Weight: 08/30/2017 Blood Pressure 1: 140/76 Code: 8480-6 BMI: 28.4 Code: 91429-2 Heart Rate 1: 90 bpm Height: 5'6" SpO2: 94% Weight: 176 lbs 07/06/2017 Blood Pressure 1: 132/66 Code: 8480-6 BMI: 29.4 Code: 31975-4 Heart Rate 1: 85 bpm Height: 5'6" SpO2: 97% Weight: 182 lbs 06/20/2017 Blood Pressure 1: 134/86 Code: 8480-6 Heart Rate 1: 90 bpm Height: SpO2: 98% Weight: 06/05/2017 BMI: 29.1 Code: 58225-2 Height: 5'6" Weight: 180 lbs 05/25/2017 Blood Pressure 1: 126/76 Code: 8480-6 BMI: 29.1 Code: 80394-9 Heart Rate 1: 77 bpm Height: 5'6" SpO2: 97% Weight: 180 lbs 03/23/2017 Blood Pressure 1: 142/84 Code: 8480-6 BMI: 29.1 Code: 00303-9 Heart Rate 1: 91 bpm Height: 5'6" SpO2: 97% Weight: 180 lbs 01/23/2017 Blood Pressure 1: 150/90 Code: 8480-6 BMI: 29.9 Code: 75556-6 Heart Rate 1: 81 bpm Height: 5'6" SpO2: 97% Weight: 185 lbs 11/02/2016 Blood Pressure 1: 148/78 Code: 8480-6 BMI: 29.7 Code: 19480-7 Heart Rate 1: 87 bpm Height: 5'6" SpO2: 97% Weight: 184 lbs 09/29/2016 Blood Pressure 1: 128/78 Code: 8480-6 BMI: 29.7 Code: 28873-0 Heart Rate 1: 78 bpm Height: 5'6" SpO2: 98% Weight: 184 lbs 07/26/2016 Blood Pressure 1: 138/72 Code: 8480-6 BMI: 30.0 Code: 48438-4 Heart Rate 1: 85 bpm Height: 5'6" SpO2: 97% Weight: 186 lbs 05/30/2016 Blood Pressure 1: 132/76 Code: 8480-6 BMI: 30.0 Code: 00206-7 Heart Rate 1: 80 bpm Height: 5'6" SpO2: 98% Waist Measure (cm): 99 cm Weight: 186 lbs 05/25/2016 Blood Pressure 1: 132/76 Code: 8480-6 BMI: 30.0 Code: 57031-4 Heart Rate 1: 80 bpm Height: 5'6" SpO2: 96% Weight: 186 lbs 02/25/2016 Blood Pressure 1: 110/64 Code: 8480-6 Heart Rate 1: 82 bpm Height: SpO2: 96% Weight: 01/25/2016 Blood Pressure 1: 118/70 Code: 8480-6 BMI: 30.0 Code: 00385-3 Heart Rate 1: 78 bpm Height: 5'6" SpO2: 97% Weight: 186 lbs 11/11/2015 Blood Pressure 1: 128/82 Code: 8480-6 BMI: 29.2 Code: 48884-8 Heart Rate 1: 86 bpm Height: 5'6" SpO2: 96% Temperature: 36.4 (C) / 97.6 (F) Weight: 181 lbs 10/12/2015 Blood Pressure 1: 118/70 Code: 8480-6 BMI: 29.2 Code: 38235-8 Heart Rate 1: 81 bpm Height: 5'6" SpO2: 95% Weight: 181 lbs 09/03/2015 Blood Pressure 1: 138/78 Code: 8480-6 BMI: 29.9 Code: 56147-9 Heart Rate 1: 88 bpm Height: 5'6" SpO2: 97% Weight: 185 lbs 05/19/2015 Blood Pressure 1: 146/78 Code: 8480-6 BMI: 30.0 Code: 50436-7 Heart Rate 1: 66 bpm Height: 5'6" SpO2: 97% Weight: 186 lbs 05/12/2015 Blood Pressure 1: 120/70 Code: 8480-6 BMI: 29.9 Code: 03923-2 Heart Rate 1: 89 bpm Height: 5'6" SpO2: 95% Weight: 185 lbs 01/13/2015 Blood Pressure 1: 140/90 Code: 8480-6 BMI: 30.3 Code: 22714-8 Heart Rate 1: 84 bpm Height: 5'6" SpO2: 95% Weight: 188 lbs 12/16/2014 Blood Pressure 1: 140/82 Code: 8480-6 BMI: 29.5 Code: 97492-5 Heart Rate 1: 86 bpm Height: 5'6" [...] - did not bring in readings 01/23/2017 -HH checks them every other day hypertension [...] data Encounters Encounter Performer Location Codes Date ([id number]) [id number] EST. PATIENT, LEVEL IV Diagnosis: Essential (primary) hypertension[ICD10: I10] Diagnosis: Type 2 diabetes mellitus without complications[ICD10: E11.9] Yarely Vega MD, [facility] CPT-4: 48079 05/03/2018 ([id number]) 53347 EST. PATIENT, LEVEL III Diagnosis: Pain in left shoulder[ICD10: M25.512] Diagnosis: Pain in right shoulder[ICD10: M25.511] Yarely Vega MD, [facility] CPT-4: 51844 02/26/2018 ([id number]) [id number] EST. PATIENT, LEVEL III Diagnosis: Nausea[ICD10: R11.0] Diagnosis: Cough[ICD10: R05] Diagnosis: 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 factor deficiency[ICD10: D51.0] [facility] CPT-4: 96304 12/12/2017 ([id number]) 31101 EST. PATIENT, LEVEL IV Diagnosis: Acute bronchitis due to Hemophilus influenzae[ICD10: J20.1] Diagnosis: Cough[ICD10: R05] Yarely Vega MD, [facility] CPT-4: 35995 12/04/2017 ([id number]) 93445 EST. PATIENT, LEVEL IV Diagnosis: Essential (primary) hypertension[ICD10: I10] Diagnosis: Cough[ICD10: R05] Diagnosis: Chronic atrial fibrillation[ICD10: I48.2] Yarely Vega MD, [facility] CPT-4: 36703 11/20/2017 ([id number]) 04355 EST. PATIENT, LEVEL III Diagnosis: Cough[ICD10: R05] Diagnosis: Acute upper respiratory infection, unspecified[ICD10: J06.9] Janet Vega MD, [facility] CPT-4: 61388 09/15/2017 [id number] EST. PATIENT, LEVEL III Diagnosis: Laceration without foreign body of right forearm, initial encounter[ICD10: S51.811A] Diagnosis: Other vitamin B12 deficiency anemias[ICD10: D51.8] Brianna Vega MD, [facility] CPT-4: 33489 09/07/2017 ([id number]) 66018 EST. PATIENT, LEVEL IV Diagnosis: Chronic atrial fibrillation[ICD10: I48.2] Diagnosis: Other allergic rhinitis[ICD10: J30.89] Diagnosis: Encounter for therapeutic drug level monitoring[ICD10: Z51.81] Yarely Vega MD, [facility] CPT-4: 30587 08/30/2017 ([id number]) 48889 EST. PATIENT, LEVEL IV Diagnosis: Atrophy of thyroid (acquired)[ICD10: E03.4] Diagnosis: Cough[ICD10: R05] Diagnosis: Laceration without foreign body of left forearm, initial encounter[ICD10: S51.812A] Diagnosis: Candidiasis of skin and nail[ICD10: B37.2] Diagnosis: Other vitamin B12 deficiency anemias[ICD10: D51.8] Diagnosis: Slow transit constipation[ICD10: K59.01] Yarely Vega MD, [facility] CPT-4: 99421 07/06/2017 [id number] EST. PATIENT, LEVEL III Diagnosis: Other vitamin B12 deficiency anemias[ICD10: D51.8] Diagnosis: Acute laryngopharyngitis[ICD10: J06.0] Diagnosis: Other allergic rhinitis[ICD10: J30.89] Brianna Vega MD, [facility] CPT- 4: 17072 06/20/2017 ([id number]) [id number] EST. PATIENT, LEVEL IV Diagnosis: Essential (primary) hypertension[ICD10: I10] Diagnosis: Chronic atrial fibrillation[ICD10: I48.2] Diagnosis: Atrophy of thyroid (acquired)[ICD10: E03.4] Diagnosis: 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 factor deficiency[ICD10: D51.0] Yarely Vega MD, [facility] CPT-4: 75073 05/25/2017 ([id number]) 86673 EST. 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 PATIENT, LEVEL IV Diagnosis: Type 2 diabetes mellitus without complications[ICD10: E11.9] Diagnosis: Essential (primary) hypertension[ICD10: I10] Diagnosis: Headache[ICD10: R51] Diagnosis: Atrophy of thyroid (acquired)[ICD10: E03.4] Diagnosis: Vitamin B12 deficiency anemia, unspecified[ICD10: D51.9] Yarely Vega MD, [facility] CPT-4: 46384 01/23/2017 24485 EST. PATIENT, LEVEL III Diagnosis: Low back pain[ICD10: M54.5] Diagnosis: Pain in thoracic spine[ICD10: M54.6] Brianna Vega MD, [facility] CPT- 4: 03976 11/02/2016 [id number] 10866 EST. PATIENT, LEVEL IV Diagnosis: Essential (primary) hypertension[ICD10: I10] Diagnosis: Other vitamin B12 deficiency anemias[ICD10: D51.8] Diagnosis: Generalized abdominal pain[ICD10: R10.84] Yarely Vega MD, [facility] CPT-4: 63518 09/29/2016 [id number] 48885 EST. PATIENT, LEVEL IV Diagnosis: Essential (primary) hypertension[ICD10: I10] Yarely Vega MD, [facility] CPT-4: 42187 07/26/2016 ([id number]) 37514 EST. PATIENT, LEVEL IV Diagnosis: Benign lipomatous neoplasm of skin and subcutaneous tissue of right leg[ICD10: D17.23] Diagnosis: Pain in right ankle and joints of right foot[ICD10: M25.571] Diagnosis: Encounter for immunization[ICD10: Z23] Diagnosis: Vitamin B12 deficiency anemia, unspecified[ICD10: D51.9] Yarely Vega MD, [facility] CPT-4: 22473 05/25/2016 02937 EST. PATIENT, LEVEL III Diagnosis: Other chest pain[ICD10: R07.89] Diagnosis: Other vitamin B12 deficiency anemias[ICD10: D51.8] Brianna Vega MD, [facility] CPT-4: 22527 02/25/2016 ([id number]) 94104 EST. PATIENT, LEVEL IV Diagnosis: Essential (primary) hypertension[ICD10: I10] Diagnosis: Hypothyroidism, unspecified[ICD10: E03.9] Diagnosis: Other hypersomnia[ICD10: G47.19] Diagnosis: Idiopathic sleep related nonobstructive alveolar hypoventilation[ICD10: G47.34] Yarely Vega MD, [facility] CPT-4: 95512 01/25/2016 [id number] EST. PATIENT, LEVEL III Diagnosis: Other vitamin B12 deficiency anemias[ICD10: D51.8] Diagnosis: Acute nasopharyngitis [common cold][ICD10: J00] Diagnosis: Other allergic rhinitis[ICD10: J30.89] Brianna Vega MD, [facility] CPT- 4: 72473 11/11/2015 ([id number]) 39064 EST. PATIENT, LEVEL IV Diagnosis: Essential tremor[ICD10: G25.0] Diagnosis: Chronic fatigue, unspecified[ICD10: R53.82] Diagnosis: Other hypersomnia[ICD10: G47.19] Diagnosis: Essential (primary) hypertension[ICD10: I10] Yarely Vega MD, [facility] CPT-4: 56798 10/12/2015 ([id number]) 88114 EST. PATIENT, LEVEL IV Diagnosis: Essential (primary) hypertension[ICD10: I10] Diagnosis: Chronic atrial fibrillation[ICD10: I48.2] Diagnosis: Abnormal levels of other serum enzymes[ICD10: R74.8] Diagnosis: Type 2 diabetes mellitus without complications[ICD10: E11.9] Diagnosis: Vitamin B12 deficiency anemia, unspecified[ICD10: D51.9] [facility] CPT-4: 38191 09/03/2015 [id number] 49059 EST. PATIENT, LEVEL III Diagnosis: Nausea[ICD10: R11.0] Diagnosis: Essential tremor[ICD10: G25.0] Diagnosis: Actinic keratosis[ICD10: L57.0] [facility] CPT-4: 69007 05/19/2015 ([id number]) 66242 EST. PATIENT, LEVEL IV Diagnosis: Vitamin B12 deficiency anemia, unspecified[ICD10: D51.9] Diagnosis: Chronic atrial fibrillation[ICD10: I48.2] Diagnosis: Headache[ICD10: R51] Diagnosis: Chronic fatigue, unspecified[ICD10: R53.82] Diagnosis: Cervicalgia[ICD10: M54.2] [facility] CPT-4: 27116 05/12/2015 [id number]) 03015 EST. PATIENT, LEVEL IV Diagnosis: ESSENTIAL HYPERTENSION[ICD9: 401.9] Diagnosis: Afib[ICD9: 427.31] Diagnosis: Anxiety[ICD9: 300.00] Diagnosis: Insomnia[ICD9: 780.52] [facility] CPT-4: 90399 01/13/2015 ([id number]) OFFICE VISIT, NEW - LEVEL 4 Diagnosis: Hypothyroidism[ICD9: 244.9] Diagnosis: DIABETES TYPE II[ICD9: 250.00] Diagnosis: ESSENTIAL HYPERTENSION[ICD9: 401.9] Diagnosis: Afib[ICD9: 427.31] Diagnosis: Anxiety[ICD9: 300.00] Diagnosis: B12 deficiency[ICD9: 266.2] [facility] CPT-4: 89876 12/16/2014 Plan of Care Planned Activity Notes Codes Status Date Patient Education: Patient Medication Summary Completed 07/19/2018 Appointment: Injection 07/04/2018 Patient Education: Patient Medication Summary Completed 07/04/2018 Appointment: Injection 06/20/2018 Patient Education: Patient Medication Summary Completed 06/20/2018 App[facility]ment[phone] [id number] ([facility] Complex 06/07/2018 Appointment: Injection 06/06/2018 Patient Education: Patient Medication Summary Completed 06/06/2018 App[phone] [id number] ([facility] min) Moderate 05/31/2018 Appointment: Injection [...] flonase 05/03/2018 Appointment: Yarely Vega [phone] (15 min) Moderate 05/03/2018 Patient Education: [...] surgical intervention. 02/26/2018 Appointment: Yarely Vega WPtel: [facility]5 [facility] [place] (15 min) Moderate 02/26/2018 Patient Education: Patient Medication Summary Completed 02/26/2018 Care Plan: Referral Order SNOMED-CT : [id number] Pending 02/26/2018 Appointment: Injection 02/08/2018 Patient Education: Patient Medication Summary Completed 02/08/2018 Appointment: Injection 01/24/2018 Patient Education: Patient Medication Summary Completed 01/24/2018 Appointment: Injection 01/10/2018 Patient Education: Patient Medication Summary Completed 01/10/2018 Appointment: Injection 12/27/2017 Patient Education: Patient Medication Summary Completed 12/27/2017 Appointment: Yarely Vega WPtel: [facility] [place] (15 min) Moderate 12/26/2017 Visit Plan: Ysibms-nfydlxdcx-yobvkgcf protonix-follow up with Dr Navarro as scheduled Cough-recent bronchitis-symptoms improved-call if symptoms do not completely resolve 12/12/2017 Appointment: Janet Fam WPtel: [phone] [place] (15 min) Moderate 12/12/2017 Patient [...] WPtel: [facility] [place] (15 min) Moderate 12/04/2017 Patient Education: [...] Fatigue/malaise -Pt was advsied to ask the Launch Leader the following: ask the heart doctor if [...] [facility] [place] (15 min) Moderate 11/20/2017 Patient [...] WPtel: [phone] [place] (15 min) Moderate 09/15/2017 Patient Education: Patient Medication Summary Completed 09/15/2017 Appointment: Yarely Vega WPtel: [facility] [place] (15 min) Moderate 09/11/2017 Visit Plan: Skin tear and Cellulitis - The patient was instructed in appropriate wound care. The patient was instructed to use the antibiotic ointment as per RX. The patient is to call for any change in symptoms, increase in size of the lesion, increase in pain, worsening redness, warmth, discharge. 09/07/2017 Appointment: [phone] [facility] (10 min) Simple 09/07/2017 Patient Education: Patient Medication Summary Completed 09/07/2017 Visit Plan: Lipoma - left ankle - talk to dr. barnes about possible surgery/laser for treatment of lipoma. Fatigue/malaise -Pt was advsied to ask the Launch Leader the following: ask the heart doctor if there is an alternative to the amiodarone - you may be having side effects from the medication causing you to have pruritus (itching) and feeling like you have body aches, muscle aches, joint pain, fatigue, weight loss (decreased appetite), and pneumonia like symptoms. Congestion - claritin 10mg daily. 08/30/2017 Appointment: Yarely Vega WPtel: [facility] (15 min) Moderate 08/30/2017 Patient Education: Patient Medication Summary Completed 08/30/2017 Appointment: Injection 08/24/2017 Appointment: Yarely Vega WPtel: [facility] (15 min) Moderate 08/24/2017 Patient Education: Patient [...] mucinex 07/06/2017 Appointment: [facility]el[facility] [phone] [facility] (15 min) Moderate 07/06/2017 Patient Education: [...] spray. 06/20/2017 App[facility]ment: [phone] [facility] (15 min) Moderate 06/20/2017 Patient Education: [...] Injection 06/05/2017 Appointment: Bri[facility]toole [facility]el[facility] [phone] [facility] [facility] - Annual Wellness Visit 06/05/2017 Patient Education: [...] 3 months or q [address] [facility] based on previous levels of control. 05/25/2017 Appointment: [facility]ega [facility]el[phone] [facility] (15 min) Moderate 05/25/2017 Patient Education: [...] wall. Fatigue - pt to discuss with Launch Leader about the possibility of amiodarone causing her fatigue/malaise. 03/23/2017 Appointment: [facility]ega [facility]el[facility] [phone] [facility] [place] (15 min) Moderate 03/23/2017 Patient Education: [...] twice daily. 01/23/2017 Appointment: [facility]ega [facility]Ptel[facility] [phone] [facility] [place] (15 min) Moderate 01/23/2017 Patient Education: [...] improve. 11/02/2016 Appointment: [phone] [facility] [place] (15 min) Moderate 11/02/2016 Patient [...] carafate 09/29/2016 Appointment: [facility]ega [facility]Ptel[facility] [phone] [facility] [place] (15 min) Moderate 09/29/2016 Patient Education: Patient Medication Summary Completed 09/29/2016 Appointment: [facility]ega [facility]Ptel[facility] [phone] [facility] [place] (15 min) Moderate 09/27/2016 Appointment: [facility]ega [facility]el[facility] [phone] [facility] [place] (15 min) Moderate 09/20/2016 Appointment: [facility]ega [facility]Ptel[facility] [phone] [facility] [place] (15 min) Moderate 09/20/2016 Patient Education: Patient Medication Summary Completed 09/06/2016 Appointment: [facility]ega [facility]el[facility] [phone] [facility] [place] (15 min) Moderate 08/30/2016 Appointment: [...] concerns. 07/26/2016 Appointment: Yarely Vega WPtel: [phone] [facility] (15 min) Moderate 07/26/2016 Patient Education: Patient [...] care surrogate. 05/30/2016 Appointment: Brianna Otoole WPtel: [phone] [facility] [facility] - Annual Wellness Visit 05/30/2016 Patient Education: [...] bedtime 05/25/2016 Appointment: [facility]ega [facility]Ptel[facility] [phone] [facility] (15 min) Moderate 05/25/2016 Patient Education: Patient Medication Summary Completed 05/25/2016 Patient Education: Obesity Completed 05/25/2016 Care Plan: Referral Order SNOMED-CT : [id number] Pending 05/25/2016 Appointment: Injection 05/10/2016 Patient Education: Patient Medication Summary Completed 05/10/2016 Appointment: Injection 04/26/2016 Patient Education: Patient Medication Summary Completed 04/26/2016 Appointment: Injection 04/11/2016 Patient Education: Patient Medication Summary Completed 04/11/2016 Appointment: Injection 03/31/2016 Patient Education: Patient Medication Summary Completed 03/31/2016 Patient Education: Patient Medication Summary Completed 03/22/2016 Care Plan: [facility] [address]-7 Pending 03/22/2016 Appointment: Injection 03/15/2016 Patient Education: [...] concerns. 02/25/2016 Appointment: Bri[facility] Otoole [facility]Ptel[facility] [phone] [facility] (15 min) Moderate 02/25/2016 Patient Education: [...] the patients recent sleep study - recommended [place] home patient eval of pt - nocturnal [...] the patients recent sleep study - recommended [place] home patient eval of pt - nocturnal [...] case with Faiza's daughter who had left [facility]. She is interested in looking at assisted living facilities for her mom as Faiza's family is for assisted living placement sooner rather than later. 10/12/2015 Appointment: Yarely Vega WPtel: [facility] (15 min) Moderate 10/12/2015 Patient Education: [...] Completed 08/17/2015 Appointment: Yarely Vega WPtel: [address] [facility] (15 min) Moderate 08/11/2015 Appointment: Injection 08/06/2015 [...] 2 05/19/2015 Appointment: [facility]arely [facility]ega [facility]Ptel[facility] [phone] [facility] (30 min) Complex 05/19/2015 Patient Education: [...] prn alprazolam. 01/13/2015 Appointment: Yarely Vega WPtel: [address] [place] [address] (15 min) Moderate 01/13/2015 Patient Education: Patient [...] medications. 12/16/2014 Appointment: Janet [facility]el[phone] [phone] [place] ([place] New Patient 12/16/2014 Patient [...] Cat Referral Appointment Requested Instructions Comment . Atrial Fibrillation - pt on chronic [...] case with Faiza's daughter who had left [facility]. She is interested in looking at assisted living facilities for her mom as Faiza's family is for assisted living placement sooner rather than later. excedrin migraine for as needed use for [...] DOPA paperwork for health care surrogate. . b12 injection decrease topamax to one [...] Fatigue/malaise -Pt was advsied to ask the Launch Leader the following: ask the heart doctor if [...] in pain, worsening redness, warmth, discharge. . Chest Pain - pt states that she has had chest pain off an on, she states that it goes down her left arm and to her back. She states that she has had some nausea. Will check labs and order EKG - pt is to notify clinic if symptoms return, or with any concerns. . Pqogqj-tspqhldbo-audoprcr protonix-follow up with Dr Navarro as scheduled Cough-recent bronchitis-symptoms improved-call if symptoms do not completely resolve melatonin can take 3mg to 10mg at [...] Fatigue/malaise -Pt was advsied to ask the Launch Leader the following: ask the heart doctor if [...] wall. Fatigue - pt to discuss with Launch Leader about the possibility of amiodarone causing her fatigue/malaise. change priolosec to bedtime to see if [...] is not interested in surgical intervention. . Medicare Exam - today we discussed [...] the patients recent sleep study - recommended [place] home patient eval of pt - nocturnal [...] the patients recent sleep study - recommended [place] home patient eval of pt - nocturnal oxygen study - will order - if positive oxygen concentrator with humidification. . URI - Pt advised to increase [...] months based on previous levels of control. Stop Keflex Start Doxycycline - probiotic while [...] spray in the nasal steroid allergy spray. loratadine - generic for CLARITIN - take [...] topamax - increase dose to twice daily. Power Pudding: equal parts of prune juice, [...]
--- OUTSIDE RECORDS SUMMARY | 2018-12-05 18:25 | XMS REPORT | CCD ---
Author Author [facility] Organization [facility] Address [address] [place] [address] Phone Care Team Providers Care Account Installer Name Role Phone PP Unavailable CCM Unavailable Summary Purpose Interface Exchange Insurance Providers Payer name Policy type / Coverage type Covered libertarian ID Effective Begin Date Effective End Date WPS Medicare Part B Medicare Part B [id number] Unknown Principal Life Insurance Medicare Part B [id number] Unknown [employer] [facility] in [place] Medicare Part B [id number] Unknown Family history Brother Diagnosis Age At Onset Heart Attack Unknown Mother Diagnosis Age At Onset Hypertension Unknown kidney disease Unknown Stroke Unknown Father Diagnosis Age At Onset Arthritis Unknown Social History Social History Element Codes Description Effective Dates Employment Unknown Retired worked at [employer] 11/20/2017 Marital status Unknown Single 12/16/[address]: 4799043 Former smoker 12/16/[address]: 467386950 Never drinks alcohol 12/16/2014 Allergies, Adverse Reactions, Alerts Substance Reaction Codes Entered Date Inactivated Date Status CODEINE RxNorm: 2670 05/25/2016 No Inactive Date Active ciprofloxacin RxNorm: 23047 12/16/2014 No Inactive Date Active MORPHINE SULFATE [...] ICD-9: 266.2 ICD-10: D51.8 Active 06/05/2017 Unknown Essential (primary) hypertension ICD-9: 401.9 ICD-10: [...] anemias ICD-9: 266.2 ICD-10: D51.8 06/05/2017 Active Essential (primary) hypertension ICD-9: 401.9 ICD-10: [...] hydrocodone 5 mg-acetaminophen 325 mg tablet RxNorm: 969050 1-2 Tablet(s) PO Q6 as needed for pain 07/18/2018 08/16/2018 Active betamethasone valerate 0.1 % topical ointment RxNorm: 648664 1 TOP BID 07/04/2018 07/03/2018 Inactive applying to skin under nose x 10 days cyanocobalamin (vit B-12) 1,000 mcg/mL injection solution RxNorm: 676534 Milliliter(s) Inj 07/04/2018 07/04/2018 Inactive betamethasone valerate 0.1 % topical ointment RxNorm: 050966 1 TOP BID 07/04/2018 07/13/2018 Inactive applying to skin under nose x 10 days Aricept 10 mg tablet RxNorm: 165232 Tablet(s) 1 Tablet(s) PO daily 06/25/2018 06/19/2019 Active Flonase Allergy Relief 50 mcg/actuation nasal spray,suspension RxNorm: 4181195 [place] 1 [place] NASAL BID 06/20/2018 10/17/2018 Active cyanocobalamin (vit B-12) 1,000 mcg/mL injection solution RxNorm: 322599 Milliliter(s) Inj 06/20/2018 06/20/2018 Inactive hydrocodone 5 mg-acetaminophen 325 mg tablet RxNorm: 983909 1-2 Tablet(s) PO Q6 as needed for pain 06/20/2018 07/17/2018 Inactive cyanocobalamin (vit B-12) 1,000 mcg/mL injection solution RxNorm: 181488 Milliliter(s) Inj 06/06/2018 06/06/2018 Inactive alprazolam 0.25 mg tablet RxNorm: 785090 1 Tablet(s) PO BID 05/25/2018 08/22/2018 Active hydrocodone 5 mg-acetaminophen 325 mg tablet RxNorm: 422403 1-2 Tablet(s) PO Q6 as needed for pain 05/24/2018 06/19/2018 Inactive cyanocobalamin (vit B-12) 1,000 mcg/mL injection solution RxNorm: 418649 Milliliter(s) Inj 05/24/2018 05/24/2018 Inactive cyanocobalamin (vit B-12) 1,000 mcg/mL injection solution RxNorm: 720341 Milliliter(s) Inj 05/09/2018 05/09/2018 Inactive Claritin 10 mg tablet RxNorm: 626126 TAKE 1 TABLET BY MOUTH ONCE DAILY 05/08/2018 05/02/2019 Active Generic For:CLARITIN 10MG 05/07/2018 9:13:47 AM cyanocobalamin (vit B-12) 1,000 mcg/mL injection solution RxNorm: 967893 INJECT ONE 1 ML EVERY TWO WEEKS 05/03/2018 04/03/2019 Active 05/03/2018 9:13:42 AM Mobic 15 mg tablet RxNorm: 440175 Tablet(s) 1 Tablet(s) PO daily 04/26/2018 04/20/2019 Active buspirone 15 mg tablet RxNorm: 917432 Tablet(s) TAKE 1 TABLET BY MOUTH TWICE DAILY 04/26/2018 04/20/2019 Active Generic For:BUSPAR 15MG 05/31/2017 9:19:20 AM Norvasc 5 mg tablet RxNorm: 266999 Tablet(s) 1 Tablet(s) PO daily 04/26/2018 04/20/2019 Active cyanocobalamin (vit B-12) 1,000 mcg/mL injection solution RxNorm: 452634 Milliliter(s) Inj 04/26/2018 04/26/2018 Inactive hydrocodone 5 mg-acetaminophen 325 mg tablet RxNorm: 600610 1-2 Tablet(s) PO Q6 as needed for pain 04/25/2018 05/23/2018 Inactive cyanocobalamin (vit B-12) 1,000 mcg/mL injection solution RxNorm: 340764 Milliliter(s) Inj 04/12/2018 04/12/2018 Inactive Topamax 25 mg tablet RxNorm: 114483 1 Tablet(s) PO BID 04/09/2018 05/02/2018 Inactive Generic For:TOPAMAX 25MG 12/06/2016 9:15:13 AM Zoloft 50 mg tablet RxNorm: 401866 TAKE 1 TABLET BY MOUTH ONCE DAILY 04/04/2018 12/29/2018 Active Generic For:ZOLOFT 50MG 04/04/2018 9:13:25 AM cyanocobalamin (vit B-12) 1,000 mcg/mL injection solution RxNorm: 843214 Milliliter(s) Inj 03/30/2018 03/30/2018 Inactive levothyroxine 125 mcg tablet RxNorm: 691949 TAKE 1 TABLET BY MOUTH EVERY DAY 03/26/2018 09/21/2018 Active Generic For:SYNTHROID 125MCG TAB 03/26/2018 9:15:59 AM liothyronine 5 mcg tablet RxNorm: 519276 TAKE 1 TABLET BY MOUTH TWICE DAILY 03/26/2018 09/21/2018 Active Generic For:CYTOMEL 5MCG 03/26/2018 9:15:54 AM hydrocodone 5 mg-acetaminophen 325 mg tablet RxNorm: 598495 1-2 Tablet(s) PO Q6 as needed for pain 03/19/2018 04/17/2018 Inactive cyanocobalamin (vit B-12) 1,000 mcg/mL injection solution RxNorm: 469499 Milliliter(s) Inj 03/16/2018 03/16/2018 Inactive Flonase Allergy Relief 50 mcg/actuation nasal spray,suspension RxNorm: 5025612 1 [place] NASAL BID 03/05/2018 06/19/2018 Inactive cyanocobalamin (vit B-12) 1,000 mcg/mL injection solution RxNorm: 586631 Milliliter(s) Inj 03/02/2018 03/02/2018 Inactive alprazolam 0.25 mg tablet RxNorm: 364792 1 Tablet(s) PO BID 02/28/2018 05/27/2018 Inactive cyanocobalamin (vit B-12) 1,000 mcg/mL injection solution RxNorm: 924589 Milliliter(s) Inj 02/08/2018 02/08/2018 Inactive cyanocobalamin (vit B-12) 1,000 mcg/mL injection solution RxNorm: 719849 Milliliter(s) Inj 01/24/2018 01/24/2018 Inactive albuterol sulfate 2.5 mg/3 mL (0.083 %) solution for nebulization RxNorm: 102609 3 Milliliter(s) INH Q6 PRN 01/24/2018 05/02/2018 Inactive Claritin 10 mg tablet RxNorm: 752406 1 Tablet(s) PO daily 01/15/2018 05/07/2018 Inactive cyanocobalamin (vit B-12) 1,000 mcg/mL injection solution RxNorm: 760583 Milliliter(s) Inj 01/10/2018 01/10/2018 Inactive hydrocodone 5 mg-acetaminophen 325 mg tablet RxNorm: 382887 1-2 Tablet(s) PO Q6 as needed for pain 01/09/2018 02/07/2018 Inactive cyanocobalamin (vit B-12) 1,000 mcg/mL injection solution RxNorm: 714697 Milliliter(s) Inj 12/27/2017 12/27/2017 Inactive cyanocobalamin (vit B-12) 1,000 mcg/mL injection solution RxNorm: 100251 1 Milliliter(s) Inj 12/12/2017 12/12/2017 Inactive Zofran ODT 4 mg disintegrating tablet RxNorm: 939799 1 Tablet(s) PO TID as needed 12/08/2017 12/09/2017 Inactive hydrocodone 2.5 mg-guaifenesin 200 mg/5 mL oral solution RxNorm: 502875 5 Milliliter(s) PO 12/04/2017 05/06/2018 Inactive doxycycline hyclate 100 mg capsule RxNorm: 6512523 1 Capsule(s) PO BID 12/04/2017 12/13/2017 Inactive cyanocobalamin (vit B-12) 1,000 mcg/mL injection solution RxNorm: 679426 Milliliter(s) Inj 12/01/2017 12/01/2017 Inactive Flonase Allergy Relief 50 mcg/actuation nasal spray,suspension RxNorm: 4813298 1 [place] NASAL BID 11/20/2017 2018 Inactive cyanocobalamin (vit B-12) 1,000 mcg/mL injection solution RxNorm: 120143 1 Milliliter(s) Inj 11/17/2017 11/17/2017 Inactive hydrocodone 5 mg-acetaminophen 325 mg tablet RxNorm: 344779 1-2 Tablet(s) PO Q6 as needed for pain 11/16/2017 12/15/2017 Inactive cyanocobalamin (vit B-12) 1,000 mcg/mL injection solution RxNorm: 757693 1 Milliliter(s) Inj 11/02/2017 11/02/2017 Inactive hydrocodone 5 mg-acetaminophen 325 mg tablet RxNorm: 424082 1-2 Tablet(s) PO Q6 as needed for pain 10/25/2017 11/15/2017 Inactive Claritin 10 mg tablet RxNorm: 883436 1 Tablet(s) PO daily 10/25/2017 11/19/2017 Inactive albuterol sulfate 2.5 mg/3 mL (0.083 %) solution for nebulization RxNorm: 326767 3 Milliliter(s) INH Q6 PRN 10/25/2017 01/23/2018 Inactive Claritin 10 mg tablet RxNorm: 482786 1 Tablet(s) PO daily 10/25/2017 10/24/2017 Inactive cyanocobalamin (vit B-12) 1,000 mcg/mL injection solution RxNorm: 552263 1 Milliliter(s) Inj 10/20/2017 10/20/2017 Inactive Zoloft 50 mg tablet RxNorm: 414359 TAKE 1 TABLET BY MOUTH ONCE DAILY 10/13/2017 04/03/2018 Inactive Generic For:ZOLOFT 50MG 10/13/2017 8:59:44 AM cyanocobalamin (vit B-12) 1,000 mcg/mL injection solution RxNorm: 681104 Milliliter(s) Inj 10/06/2017 10/06/2017 Inactive liothyronine 5 mcg tablet RxNorm: 743625 TAKE 1 TABLET BY MOUTH TWICE DAILY 10/03/2017 03/25/2018 Inactive Generic For:CYTOMEL 5MCG 10/03/2017 9:13:38 AM cyanocobalamin (vit B-12) 1,000 mcg/mL injection solution RxNorm: 047638 Milliliter(s) Inj 09/21/2017 09/21/2017 Inactive albuterol sulfate 2.5 mg/3 mL (0.083 %) solution for nebulization RxNorm: 153722 3 Milliliter(s) INH Q6 PRN 09/21/2017 10/24/2017 Inactive hydrocodone 5 mg-acetaminophen 325 mg tablet RxNorm: 656374 1-2 Tablet(s) PO Q6 as needed for pain 09/21/2017 10/20/2017 Inactive Kenalog 40 mg/mL suspension for injection RxNorm: 7132900 Milliliter(s) Inj 09/15/2017 09/15/2017 Inactive Keflex 500 mg capsule RxNorm: 900924 1 Capsule(s) PO TID 09/07/2017 09/16/2017 Inactive Please deliver to patient cyanocobalamin (vit B-12) 1,000 mcg/mL injection solution RxNorm: 797571 Milliliter(s) Inj 09/07/2017 09/07/2017 Inactive alprazolam 0.25 mg tablet RxNorm: 462867 1 Tablet(s) PO BID 09/06/2017 02/27/2018 Inactive Aricept 10 mg tablet RxNorm: 197534 1 Tablet(s) PO daily 09/06/2017 06/24/2018 Inactive hydrocodone 5 mg-acetaminophen 325 mg tablet RxNorm: 858198 1-2 Tablet(s) PO Q6 as needed for pain 08/24/2017 09/20/2017 Inactive cyanocobalamin (vit B-12) 1,000 mcg/mL injection solution RxNorm: 523273 Milliliter(s) Inj 08/24/2017 08/24/2017 Inactive Norvasc 5 mg tablet RxNorm: 448941 1 Tablet(s) PO daily 08/18/2017 04/25/2018 Inactive nystatin 100,000 unit/gram topical powder RxNorm: 010634 1 Gram(s) TOP QID 08/17/2017 08/26/2017 Inactive hydrocodone 5 mg-acetaminophen 325 mg tablet RxNorm: 159648 1-2 Tablet(s) PO Q6 as needed for pain 07/25/2017 08/23/2017 Inactive Tamiflu 75 mg capsule RxNorm: 278346 1 Capsule(s) PO BID 07/24/2017 12/11/2017 Inactive nystatin 100,000 unit/gram topical powder RxNorm: 022864 1 Gram(s) TOP QID 07/14/2017 07/22/2017 Inactive levothyroxine 125 mcg tablet RxNorm: 220933 Tablet(s) 1 Tablet(s) PO daily 07/10/2017 01/05/2018 Inactive nystatin 100,000 unit/gram topical powder RxNorm: 978715 1 Gram(s) TOP QID 07/06/2017 07/13/2017 Inactive cyanocobalamin (vit B-12) 1,000 mcg/mL injection solution RxNorm: 687835 Milliliter(s) Inj 07/06/2017 07/06/2017 Inactive Kenalog 40 mg/mL suspension for injection RxNorm: 1426506 1 Milliliter(s) Inj 06/20/2017 06/20/2017 Inactive doxycycline hyclate 100 mg capsule RxNorm: 7861661 1 Capsule(s) PO BID 06/20/2017 06/26/2017 Inactive cyanocobalamin (vit B-12) 1,000 mcg/mL injection solution RxNorm: 540798 Milliliter(s) Inj 06/20/2017 06/20/2017 Inactive Keflex 500 mg capsule RxNorm: 365169 1 Capsule(s) PO TID 06/14/2017 06/23/2017 Inactive Please deliver to patient Mobic 15 mg tablet RxNorm: 351935 1 Tablet(s) PO daily 06/14/2017 04/25/2018 Inactive cyanocobalamin (vit B-12) 1,000 mcg/mL injection solution RxNorm: 809348 Milliliter(s) Inj 06/05/2017 06/05/2017 Inactive buspirone 15 mg tablet RxNorm: 161989 TAKE 1 TABLET BY MOUTH TWICE DAILY 05/31/2017 04/25/2018 Inactive Generic For:BUSPAR 15MG 05/31/2017 9:19:20 AM cyanocobalamin (vit B-12) 1,000 mcg/mL injection solution RxNorm: 545983 Milliliter(s) Inj 05/25/2017 05/25/2017 Inactive hydrocodone 5 mg-acetaminophen 325 mg tablet RxNorm: 728334 1-2 Tablet(s) PO Q6 as needed for pain 05/25/2017 06/23/2017 Inactive amiodarone 200 mg tablet RxNorm: 927035 1/2 Tablet(s) PO daily 05/22/2017 No Stop Date Active cardiology decreased to 100mg daily cyanocobalamin (vit B-12) 1,000 mcg/mL injection solution RxNorm: 273410 Milliliter(s) Inj 05/16/2017 05/16/2017 Inactive Zofran ODT 4 mg disintegrating tablet RxNorm: 418541 1 Tablet(s) PO TID as needed 05/03/2017 05/04/2017 Inactive hydrocodone 5 mg-acetaminophen 325 mg tablet RxNorm: 125656 1-2 Tablet(s) PO Q6 as needed for pain 05/01/2017 05/05/2017 Inactive cyanocobalamin (vit B-12) 1,000 mcg/mL injection solution RxNorm: 725465 1 Milliliter(s) Inj 05/01/2017 05/01/2017 Inactive cyanocobalamin (vit B-12) 1,000 mcg/mL injection solution RxNorm: 841518 INJECT ONE 1 ML EVERY TWO WEEKS 04/26/2017 12/04/2018 Active 04/26/2017 9:08:52 AM Zoloft 50 mg tablet RxNorm: 543972 Tablet(s) TAKE 1 TABLET BY MOUTH DAILY 04/25/2017 10/12/2017 Inactive Generic For:ZOLOFT 50MG cyanocobalamin (vit B-12) 1,000 mcg/mL injection solution RxNorm: 628681 Milliliter(s) Inj 04/18/2017 04/18/2017 Inactive liothyronine 5 mcg tablet RxNorm: 985947 1 Tablet(s) PO BID 04/13/2017 10/02/2017 Inactive cyanocobalamin (vit B-12) 1,000 mcg/mL injection solution RxNorm: 733486 Milliliter(s) Inj 04/06/2017 04/06/2017 Inactive hydrocodone 5 mg-acetaminophen 325 mg tablet RxNorm: 816088 1-2 Tablet(s) PO Q6 as needed for pain 04/06/2017 04/10/2017 Inactive cyanocobalamin (vit B-12) 1,000 mcg/mL injection solution RxNorm: 778473 Milliliter(s) Inj 03/22/2017 03/22/2017 Inactive alprazolam 0.25 mg tablet RxNorm: 537938 1 Tablet(s) PO BID 03/17/2017 12/11/2017 Inactive alprazolam 0.25 mg tablet RxNorm: 077804 1 Tablet(s) PO BID 03/16/2017 09/05/2017 Inactive hydrocodone 5 mg-acetaminophen 325 mg tablet RxNorm: 181358 1-2 Tablet(s) PO Q6 as needed for pain 03/09/2017 03/13/2017 Inactive cyanocobalamin (vit B-12) 1,000 mcg/mL injection solution RxNorm: 504924 Milliliter(s) Inj 03/09/2017 03/09/2017 Inactive cyanocobalamin (vit B-12) 1,000 mcg/mL injection solution RxNorm: 601012 Milliliter(s) Inj 02/23/2017 02/23/2017 Inactive cyanocobalamin (vit B-12) 1,000 mcg/mL injection solution RxNorm: 100969 Milliliter(s) Inj 02/09/2017 02/09/2017 Inactive hydrocodone 5 mg-acetaminophen 325 mg tablet RxNorm: 971736 1-2 Tablet(s) PO Q6 as needed for pain 02/08/2017 02/12/2017 Inactive Topamax 25 mg tablet RxNorm: 183479 1 Tablet(s) PO BID 01/23/2017 05/22/2017 Inactive Generic For:TOPAMAX 25MG 12/06/2016 9:15:13 AM cyanocobalamin (vit B-12) 1,000 mcg/mL injection solution RxNorm: 169868 Milliliter(s) Inj 01/23/2017 01/23/2017 Inactive cyanocobalamin (vit B-12) 1,000 mcg/mL injection solution RxNorm: 001137 Milliliter(s) Inj 01/10/2017 01/10/2017 Inactive hydrocodone 5 mg-acetaminophen 325 mg tablet RxNorm: 992156 1-2 Tablet(s) PO Q6 as needed for pain 01/09/2017 01/13/2017 Inactive cyanocobalamin (vit B-12) 1,000 mcg/mL injection solution RxNorm: 320896 1 Milliliter(s) Inj 12/28/2016 12/28/2016 Inactive cyanocobalamin (vit B-12) 1,000 mcg/mL injection solution RxNorm: 542518 Milliliter(s) Inj 12/14/2016 12/14/2016 Inactive buspirone 15 mg tablet RxNorm: 907709 1 Tablet(s) PO BID 12/12/2016 05/30/2017 Inactive hydrocodone 5 mg-acetaminophen 325 mg tablet RxNorm: 390510 1-2 Tablet(s) PO Q6 as needed for pain 12/08/2016 12/12/2016 Inactive Topamax 25 mg tablet RxNorm: 717384 TAKE 1 TABLET BY MOUTH EVERY DAY AT BEDTIME 12/06/2016 01/22/2017 Inactive Generic For:TOPAMAX 25MG 12/06/2016 9:15:13 AM Lac-Hydrin Five 5 % lotion RxNorm: 783316 1 Gram(s) TOP daily 12/02/2016 05/02/2018 Inactive cyanocobalamin (vit B-12) 1,000 mcg/mL injection solution RxNorm: 574640 Milliliter(s) Inj 11/24/2016 11/24/2016 Inactive Ceftin 500 mg tablet RxNorm: 945289 1 Tablet(s) PO BID 11/11/2016 06/13/2017 Inactive Cipro 500 mg tablet RxNorm: 629721 1 Tablet(s) PO BID 11/11/2016 11/10/2016 Inactive Cipro 500 mg tablet RxNorm: 387328 1 Tablet(s) PO BID 11/11/2016 11/11/2016 Inactive cyanocobalamin (vit B-12) 1,000 mcg/mL injection solution RxNorm: 273557 1 Milliliter(s) Inj 11/07/2016 11/07/2016 Inactive hydrocodone 5 mg-acetaminophen 325 mg tablet RxNorm: 421362 1-2 Tablet(s) PO Q6 as needed for pain 11/02/2016 11/06/2016 Inactive cyanocobalamin (vit B-12) 1,000 mcg/mL injection solution RxNorm: 960360 Milliliter(s) Inj 10/24/2016 10/24/2016 Inactive levothyroxine 125 mcg tablet RxNorm: 446637 Tablet(s) 1 Tablet(s) PO daily 10/24/2016 04/21/2017 Inactive liothyronine 5 mcg tablet RxNorm: 042628 1 Tablet(s) PO BID 10/24/2016 04/12/2017 Inactive hydrocodone 5 mg-acetaminophen 325 mg tablet RxNorm: 057366 1-2 Tablet(s) PO Q6 as needed for pain 10/17/2016 10/21/2016 Inactive Keflex 500 mg capsule RxNorm: 298045 1 Capsule(s) PO TID 10/07/2016 10/06/2016 Inactive Keflex 500 mg capsule RxNorm: 237154 1 Capsule(s) PO TID 10/07/2016 10/16/2016 Inactive Please deliver to patient cyanocobalamin (vit B-12) 1,000 mcg/mL injection solution RxNorm: 326649 1 Milliliter(s) Inj 09/29/2016 09/29/2016 Inactive alprazolam 0.25 mg tablet RxNorm: 679065 1 Tablet(s) PO BID 09/20/2016 03/16/2017 Inactive Cozaar 100 mg tablet RxNorm: 340359 1 Tablet(s) PO daily 09/14/2016 No Stop Date Active metoprolol tartrate 50 mg tablet RxNorm: 161834 1/2 Tablet(s) PO BID 09/14/2016 12/12/2016 Inactive Zoloft 50 mg tablet RxNorm: 972537 Tablet(s) TAKE 1 TABLET BY MOUTH DAILY 09/14/2016 03/12/2017 Inactive Generic For:ZOLOFT 50MG liothyronine 5 mcg tablet RxNorm: 778723 1 Tablet(s) PO BID 09/14/2016 10/23/2016 Inactive Calmoseptine 0.44 %-20.6 % topical ointment RxNorm: 361503 1 Application TOP BID and as needed to sore on buttocks 09/07/2016 No Stop Date Active cyanocobalamin (vit B-12) 1,000 mcg/mL injection solution RxNorm: 267723 Milliliter(s) Inj 08/29/2016 08/29/2016 Inactive hydrocodone 5 mg-acetaminophen 325 mg tablet RxNorm: 359934 1-2 Tablet(s) PO Q6 as needed for pain 08/29/2016 10/16/2016 Inactive levothyroxine 125 mcg tablet RxNorm: 314901 1 Tablet(s) PO daily 08/25/2016 10/23/2016 Inactive Topamax 25 mg tablet RxNorm: 787022 TAKE 1 TABLET BY MOUTH EVERY DAY AT BEDTIME 08/17/2016 12/05/2016 Inactive Generic For:TOPAMAX 25MG 08/17/2016 2:14:37 PM hydrocodone 5 mg-acetaminophen 325 mg tablet RxNorm: 463945 1-2 Tablet(s) PO Q6 as needed for pain 08/11/2016 08/28/2016 Inactive hydrocodone 5 mg-acetaminophen 325 mg tablet RxNorm: 678349 1 -2 Tablet(s) PO Q6 as needed for pain 08/11/2016 08/18/2016 Inactive hydrocodone 5 mg-acetaminophen 325 mg tablet RxNorm: 841664 1 Tablet(s) PO Q6 as needed for pain 08/05/2016 08/10/2016 Inactive cyanocobalamin (vit B-12) 1,000 mcg/mL injection solution RxNorm: 101083 Milliliter(s) Inj 08/04/2016 08/04/2016 Inactive Norvasc 10 mg tablet RxNorm: 515491 1 Tablet(s) PO daily 07/26/2016 07/20/2017 Inactive alprazolam 0.25 mg tablet RxNorm: 907885 1 Tablet(s) PO QHS 07/21/2016 09/19/2016 Inactive Norvasc 5 mg tablet RxNorm: 822138 1 Tablet(s) PO daily 07/21/2016 07/25/2016 Inactive levothyroxine 125 mcg tablet RxNorm: 290333 1 Tablet(s) PO daily 07/21/2016 12/11/2017 Inactive cyanocobalamin (vit B-12) 1,000 mcg/mL injection solution RxNorm: 768950 Milliliter(s) Inj 07/21/2016 07/21/2016 Inactive Zoloft 50 mg tablet RxNorm: 353469 Tablet(s) TAKE 1 TABLET BY MOUTH DAILY 07/21/2016 09/13/2016 Inactive Generic For:ZOLOFT 50MG cyanocobalamin (vit B-12) 1,000 mcg/mL injection solution RxNorm: 624275 1 Milliliter(s) Inj 07/05/2016 07/05/2016 Inactive cyanocobalamin (vit B-12) 1,000 mcg/mL injection solution RxNorm: 888755 1 Milliliter(s) Inj 06/22/2016 06/22/2016 Inactive cyanocobalamin (vit B-12) 1,000 mcg/mL injection solution RxNorm: 776844 Milliliter(s) Inj 06/09/2016 06/09/2016 Inactive Aricept 10 mg tablet RxNorm: 566775 1 Tablet(s) PO daily 05/27/2016 05/21/2017 Inactive Mobic 15 mg tablet RxNorm: 007568 1 Tablet(s) PO daily 05/27/2016 05/21/2017 Inactive levothyroxine 125 mcg tablet RxNorm: 261888 1 Tablet(s) PO daily 05/25/2016 07/20/2016 Inactive cyanocobalamin (vit B-12) 1,000 mcg/mL injection solution RxNorm: 075203 1 Milliliter(s) Inj 05/25/2016 05/25/2016 Inactive doxycycline hyclate 100 mg capsule RxNorm: 6487411 1 Capsule(s) PO BID 05/16/2016 05/15/2016 Inactive doxycycline hyclate 100 mg capsule RxNorm: 2512529 1 Capsule(s) PO BID 05/16/2016 05/22/2016 Inactive cyanocobalamin (vit B-12) 1,000 mcg/mL injection solution RxNorm: 772347 Milliliter(s) Inj 05/10/2016 05/10/2016 Inactive cyanocobalamin (vit B-12) 1,000 mcg/mL injection solution RxNorm: 421100 Milliliter(s) Inj 04/26/2016 04/26/2016 Inactive Topamax 25 mg tablet RxNorm: 935778 1 Tablet(s) PO QPM 04/22/2016 08/16/2016 Inactive cyanocobalamin (vit B-12) 1,000 mcg/mL injection solution RxNorm: 245984 Milliliter(s) 1 Milliliter(s) Inj [id number] 04/11/2016 12/31/2017 Inactive liothyronine 5 mcg tablet RxNorm: 776376 1 Tablet(s) PO BID 04/11/2016 09/13/2016 Inactive cyanocobalamin (vit B-12) 1,000 mcg/mL injection solution RxNorm: 319785 Milliliter(s) Inj 04/11/2016 04/11/2016 Inactive cyanocobalamin (vit B-12) 1,000 mcg/mL injection solution RxNorm: 495632 Milliliter(s) Inj 03/31/2016 03/31/2016 Inactive cyanocobalamin (vit B-12) 1,000 mcg/mL injection solution RxNorm: 822332 1 Milliliter(s) Inj 03/15/2016 03/15/2016 Inactive levothyroxine 125 mcg tablet RxNorm: 039767 1 Tablet(s) PO daily 2016 03/03/2016 Inactive levothyroxine 125 mcg tablet RxNorm: 612904 1 Tablet(s) PO daily 2016 05/24/2016 Inactive cyanocobalamin (vit B-12) 1,000 mcg/mL injection solution RxNorm: 683086 Milliliter(s) Inj 02/25/2016 02/25/2016 Inactive cyanocobalamin (vit B-12) 1,000 mcg/mL injection solution RxNorm: 756887 1 Milliliter(s) Inj 02/02/2016 02/02/2016 Inactive sucralfate 1 gram tablet RxNorm: 456795 1 Tablet(s) PO QHS 01/25/2016 No Stop Date Active amiodarone 200 mg tablet RxNorm: 179022 1/2 Tablet(s) PO BID 01/25/2016 05/21/2017 Inactive cyanocobalamin (vit B-12) 1,000 mcg/mL injection solution RxNorm: 486588 Milliliter(s) Inj 01/18/2016 01/18/2016 Inactive cyanocobalamin (vit B-12) 1,000 mcg/mL injection solution RxNorm: 570728 Milliliter(s) Inj 12/29/2015 12/29/2015 Inactive Topamax 25 mg tablet RxNorm: 714518 1 Tablet(s) PO QPM 12/08/2015 04/05/2016 Inactive cyanocobalamin (vit B-12) 1,000 mcg/mL injection solution RxNorm: 870363 Milliliter(s) Inj 12/08/2015 12/08/2015 Inactive Bactrim DS 800 mg-160 mg tablet RxNorm: 705271 1 Tablet(s) PO BID 11/23/2015 11/22/2015 Inactive cyanocobalamin (vit B-12) 1,000 mcg/mL injection solution RxNorm: 741374 Milliliter(s) Inj 11/23/2015 11/23/2015 Inactive Bactrim DS 800 mg-160 mg tablet RxNorm: 491726 1 Tablet(s) PO BID 11/23/2015 11/29/2015 Inactive cyanocobalamin (vit B-12) 1,000 mcg/mL injection solution RxNorm: 726429 Milliliter(s) Inj 11/11/2015 11/11/2015 Inactive amoxicillin 500 mg capsule RxNorm: 484408 1 Capsule(s) PO TID 11/10/2015 11/19/2015 Inactive Zithromax Z-Henrique 250 mg tablet RxNorm: 600668 1 Tablet(s) PO UD 11/10/2015 01/24/2016 Inactive zpack x 1 amoxicillin 500 mg capsule RxNorm: 113621 1 Capsule(s) PO TID 11/10/2015 11/09/2015 Inactive cyanocobalamin (vit B-12) 1,000 mcg/mL injection solution RxNorm: 093383 1 Milliliter(s) Inj 10/29/2015 10/29/2015 Inactive [place] 3 capsule RxNorm: 1 Capsule(s) PO QAM , 2 Capsules at noon, 1 Capsule QHS 10/13/2015 No Stop Date Active potassium chloride ER 20 mEq tablet,extended release RxNorm: 496217 2 Tablet(s) PO daily at noon 10/13/2015 No Stop Date Active alprazolam 0.25 mg tablet RxNorm: 111235 1 Tablet(s) PO QHS 10/13/2015 07/20/2016 Inactive amiodarone 200 mg tablet RxNorm: 788107 1 Tablet(s) PO BID 10/13/2015 01/24/2016 Inactive cyanocobalamin (vit B-12) 1,000 mcg/mL injection solution RxNorm: 574255 1 Milliliter(s) Inj 10/12/2015 10/12/2015 Inactive Zofran 4 mg tablet RxNorm: 870404 1 Tablet(s) PO daily as needed 10/07/2015 05/24/2016 Inactive Zoloft 50 mg tablet RxNorm: 099130 TAKE 1 TABLET BY MOUTH DAILY 10/05/2015 05/01/2016 Inactive Generic For:ZOLOFT 50MG cyanocobalamin (vit B-12) 1,000 mcg/mL injection solution RxNorm: 604701 1 Milliliter(s) Inj 09/29/2015 09/29/2015 Inactive cyanocobalamin (vit B-12) 1,000 mcg/mL injection solution RxNorm: 920439 1 Milliliter(s) Inj 09/17/2015 09/17/2015 Inactive Norvasc 5 mg tablet RxNorm: 750472 1 Tablet(s) PO daily 09/17/2015 07/20/2016 Inactive liothyronine 5 mcg tablet RxNorm: 059954 1 Tablet(s) PO BID 09/17/2015 03/14/2016 Inactive Zoloft 50 mg tablet RxNorm: 320048 1 Tablet(s) PO daily 09/17/2015 10/04/2015 Inactive buspirone 15 mg tablet RxNorm: 968797 1 Tablet(s) PO BID 09/17/2015 09/10/2016 Inactive buspirone 15 mg tablet RxNorm: 833337 1 Tablet(s) PO BID 09/14/2015 09/16/2015 Inactive Topamax 25 mg tablet RxNorm: 654625 1 Tablet(s) PO QPM 09/03/2015 12/07/2015 Inactive cyanocobalamin (vit B-12) 1,000 mcg/mL injection solution RxNorm: 414232 1 Milliliter(s) Inj 09/03/2015 09/03/2015 Inactive cyanocobalamin (vit B-12) 1,000 mcg/mL injection solution RxNorm: 953287 Milliliter(s) Inj 08/17/2015 08/17/2015 Inactive cyanocobalamin (vit B-12) 1,000 mcg/mL injection solution RxNorm: 630313 Milliliter(s) Inj 08/06/2015 08/06/2015 Inactive levothyroxine 150 mcg tablet RxNorm: 412855 1 Tablet(s) PO daily 07/22/2015 03/03/2016 Inactive Aricept 10 mg tablet RxNorm: 651439 1 Tablet(s) PO daily 07/22/2015 05/26/2016 Inactive Mobic 15 mg tablet RxNorm: 445679 1 Tablet(s) PO daily 07/22/2015 05/26/2016 Inactive cyanocobalamin (vit B-12) 1,000 mcg/mL injection solution RxNorm: 859263 Milliliter(s) Inj 07/22/2015 07/22/2015 Inactive liothyronine 5 mcg tablet RxNorm: 805270 1 Tablet(s) PO BID 07/22/2015 09/16/2015 Inactive cyanocobalamin (vit B-12) 1,000 mcg/mL injection solution RxNorm: 928060 Milliliter(s) Inj 07/08/2015 07/08/2015 Inactive cyanocobalamin (vit B-12) 1,000 mcg/mL injection solution RxNorm: 410100 Milliliter(s) Inj 06/23/2015 06/23/2015 Inactive cyanocobalamin (vit B-12) 1,000 mcg/mL injection solution RxNorm: 384171 1 Milliliter(s) Inj 06/08/2015 06/08/2015 Inactive cyanocobalamin (vit B-12) 1,000 mcg/mL injection solution RxNorm: 193732 Milliliter(s) Inj 05/27/2015 05/27/2015 Inactive Aricept 10 mg tablet RxNorm: 297291 1 Tablet(s) PO daily 05/20/2015 07/21/2015 Inactive Zofran 4 mg tablet RxNorm: 249494 1 Tablet(s) PO daily as needed 05/20/2015 06/18/2015 Inactive alprazolam 0.25 mg tablet RxNorm: 283675 1 Tablet(s) PO BID 05/20/2015 10/12/2015 Inactive Mobic 15 mg tablet RxNorm: 192063 1 Tablet(s) PO daily 05/20/2015 07/21/2015 Inactive tramadol ER 100 mg tablet,extended release 24 hr RxNorm: 534191 1 Tablet(s) PO Q6 as needed 05/13/2015 No Stop Date Active cyanocobalamin (vit B-12) 1,000 mcg/mL injection solution RxNorm: 483890 1 Milliliter(s) Inj 05/12/2015 05/12/2015 Inactive Topamax 25 mg tablet RxNorm: 055030 1 Tablet(s) PO BID (start at one pill at bedtime x 1week then twice daily thereafter) 05/12/2015 09/02/2015 Inactive cyanocobalamin (vit B-12) 1,000 mcg/mL injection kit RxNorm: 760193 kit Inj 04/30/2015 04/30/2015 Inactive cyanocobalamin (vit B-12) 1,000 mcg/mL injection solution RxNorm: 358295 Milliliter(s) Inj 04/16/2015 04/16/2015 Inactive levothyroxine 150 mcg tablet RxNorm: 872444 1 Tablet(s) PO daily 04/08/2015 07/21/2015 Inactive cyanocobalamin (vit B-12) 1,000 mcg/mL injection solution RxNorm: 142129 Milliliter(s) 1 Milliliter(s) Inj [id number] 04/08/2015 04/10/2016 Inactive Cytomel 5 mcg tablet RxNorm: 001565 1 Tablet(s) PO BID 04/08/2015 10/12/2015 Inactive Cytomel 5 mcg tablet RxNorm: 536809 1 Tablet(s) PO BID 04/07/2015 04/07/2015 Inactive Cytomel 5 mcg tablet RxNorm: 940524 1 Tablet(s) PO BID 04/07/2015 04/06/2015 Inactive cyanocobalamin (vit B-12) 1,000 mcg/mL injection solution RxNorm: 707639 Milliliter(s) Inj 04/02/2015 04/02/2015 Inactive cyanocobalamin (vit B-12) 1,000 mcg/mL injection solution RxNorm: 715828 Milliliter(s) Inj 03/18/2015 03/18/2015 Inactive cyanocobalamin (vit B-12) 1,000 mcg/mL injection solution RxNorm: 894222 Milliliter(s) 1 Milliliter(s) Inj [id number] 03/18/2015 04/07/2015 Inactive cyanocobalamin (vit B-12) 1,000 mcg/mL injection solution RxNorm: 324129 1 Milliliter(s) Inj [id number] 03/16/2015 03/17/2015 Inactive cyanocobalamin (vit B-12) 1,000 mcg/mL injection solution RxNorm: 609079 Milliliter(s) Inj 03/03/2015 03/03/2015 Inactive cyanocobalamin (vit B-12) 1,000 mcg/mL injection solution RxNorm: 525295 Milliliter(s) Inj 02/18/2015 02/18/2015 Inactive cyanocobalamin (vit B-12) 1,000 mcg/mL injection solution RxNorm: 816951 Milliliter(s) Inj 02/04/2015 02/04/2015 Inactive cyanocobalamin (vit B-12) 1,000 mcg/mL injection solution RxNorm: 148793 Milliliter(s) Inj 01/22/2015 01/22/2015 Inactive Lac-Hydrin Five 5 % lotion RxNorm: 352438 1 TOP daily 01/13/2015 03/13/2015 Inactive Lac-Hydrin Five 5 % lotion RxNorm: 440480 1 TOP daily 01/13/2015 01/12/2015 Inactive cyanocobalamin (vit B-12) 1,000 mcg/mL injection solution RxNorm: 630313 Milliliter(s) Inj 01/08/2015 01/08/2015 Inactive cyanocobalamin (vit B-12) 1,000 mcg/mL injection solution RxNorm: 157294 Milliliter(s) Inj 12/25/2014 12/25/2014 Inactive levothyroxine 150 mcg tablet RxNorm: 669499 1 Tablet(s) PO daily 12/24/2014 04/07/2015 Inactive tramadol 50 mg tablet RxNorm: 939149 1-2 Tablet(s) PO Q6 as needed 12/17/2014 05/12/2015 Inactive alprazolam 0.25 mg tablet RxNorm: 506941 1 Tablet(s) PO BID 12/17/2014 04/15/2015 Inactive Pradaxa 150 mg capsule RxNorm: 7701313 1 Capsule(s) PO BID 12/16/2014 No Stop Date Active metoprolol tartrate 50 mg tablet RxNorm: 584079 1/2 Tablet(s) PO BID 12/16/2014 09/13/2016 Inactive buspirone 15 mg tablet RxNorm: 491036 1 Tablet(s) PO BID 12/16/2014 09/13/2015 Inactive cyanocobalamin (vit B-12) 1,000 mcg/mL injection solution RxNorm: 180199 1 Milliliter(s) Inj [id number] 12/16/2014 03/15/2015 Inactive cyanocobalamin (vit B-12) 1,000 mcg/mL injection solution RxNorm: 951293 1 Milliliter(s) Inj D9ginzh 12/16/2014 12/15/2014 Inactive sucralfate 1 gram tablet RxNorm: 325352 Tablet(s) PO QID 12/16/2014 12/10/2015 Inactive cyanocobalamin (vit B-12) 1,000 mcg/mL injection solution RxNorm: 735551 Milliliter(s) Inj 12/10/2014 12/10/2014 Inactive cyanocobalamin (vit B-12) 1,000 mcg/mL injection solution RxNorm: 884742 Milliliter(s) Inj 11/26/2014 11/26/2014 Inactive Zoloft 50 mg tablet RxNorm: 052926 1 Tablet(s) PO daily 11/24/2014 06/21/2015 Inactive Zoloft 50 mg tablet RxNorm: 847149 1 Tablet(s) PO daily 11/24/2014 11/23/2014 Inactive cyanocobalamin (vit B-12) 1,000 mcg/mL injection kit RxNorm: 845195 Milliliter(s) Inj 11/12/2014 11/12/2014 Inactive cyanocobalamin (vit B-12) 1,000 mcg/mL injection solution RxNorm: 166221 Milliliter(s) Inj 10/28/2014 10/28/2014 Inactive [SAVINGS FOR NON-COVERED DRUGS -- BIN:[id number], PCN: [id number], Group: [id number], ID# [id number], Questions: . THIS IS NOT INSURANCE.] promethazine oral RxNorm: 8745 oral No Start Date Active digoxin 125 mcg tablet RxNorm: 400175 Tablet(s) PO every other day No Start Date Active furosemide 40 mg tablet RxNorm: 108252 1 Tablet(s) PO daily No Start Date Active Vitamin D3 5,000 unit tablet RxNorm: 505524 1 Tablet(s) PO daily No Start Date Active erythromycin 250 mg capsule,delayed release RxNorm: 811222 1 Capsule(s) PO AC No Start Date Active Protonix 40 mg tablet,delayed release RxNorm: 703698 1 Tablet(s) PO BID No Start Date Active Cozaar 100 mg tablet RxNorm: 970327 1 Tablet(s) PO daily No Start Date 09/13/2016 Inactive sucralfate 1 gram tablet RxNorm: 363201 Tablet(s) PO QID No Start Date 12/15/2014 Inactive amiodarone 200 mg tablet RxNorm: 520337 2 Tablet(s) PO daily No Start Date 10/13/2015 Inactive buspirone 15 mg tablet RxNorm: 315594 1 Tablet(s) PO daily No Start Date 12/15/2014 Inactive potassium chloride ER 20 mEq tablet,extended release RxNorm: 265957 1 Tablet(s) PO daily No Start Date 10/12/2015 Inactive Prilosec 40 mg capsule,delayed release RxNorm: 289377 1 Capsule(s) PO daily No Start Date 09/02/2015 Inactive [place] 3 capsule RxNorm: Capsule(s) PO No Start Date 10/12/2015 Inactive alprazolam 0.25 mg tablet RxNorm: 977031 Tablet(s) PO QHS No Start Date 12/16/2014 Inactive levothyroxine 125 mcg tablet RxNorm: 078299 1 Tablet(s) PO daily No Start Date 12/23/2014 Inactive liothyronine 5 mcg tablet RxNorm: 306626 1 Tablet(s) PO BID No Start Date 07/21/2015 Inactive Mobic 15 mg tablet RxNorm: 581316 Tablet(s) PO daily No Start Date 05/19/2015 Inactive Norvasc 5 mg tablet RxNorm: 941480 1 Tablet(s) PO daily No Start Date 09/16/2015 Inactive Zofran 4 mg tablet RxNorm: 216962 1 Tablet(s) PO daily as needed No Start Date 05/19/2015 Inactive Tamiflu 75 mg capsule RxNorm: 679749 1 Capsule(s) PO BID No Start Date 07/23/2017 Inactive tramadol 50 mg tablet RxNorm: 762302 1 Tablet(s) PO daily as needed No Start Date 12/16/2014 Inactive amiodarone 200 mg tablet RxNorm: 234473 1 Tablet(s) PO daily No Start Date 10/12/2015 Inactive Zofran ODT 4 mg disintegrating tablet RxNorm: 587210 1 Tablet(s) PO TID as needed No Start Date 05/02/2017 Inactive albuterol sulfate 2.5 mg/3 mL (0.083 %) solution for nebulization RxNorm: 919041 3 Milliliter(s) INH Q6 PRN No Start Date 09/20/2017 Inactive meclizine 25 mg tablet RxNorm: 806180 Tablet(s) PO as needed No Start Date 05/24/2016 Inactive Pradaxa 150 mg capsule RxNorm: 2063659 1 Capsule(s) PO daily No Start Date 12/15/2014 Inactive metoprolol tartrate 50 mg tablet RxNorm: 311060 1/2 Tablet(s) PO No Start Date 12/15/2014 Inactive Aricept 10 mg tablet RxNorm: 961662 Tablet(s) PO daily No Start Date 05/19/2015 Inactive Calmoseptine 0.44 %-20.6 % topical ointment RxNorm: 001276 1 Application TOP BID and as needed to sore on buttocks No Start Date 09/06/2016 Inactive Zithromax Z-Henrique 250 mg tablet RxNorm: 996094 1 Tablet(s) PO UD No Start Date 11/09/2015 Inactive zpack x 1 Medication Administered Medication Codes Instructions Start Date Status cyanocobalamin (vit B-12) 1,000 mcg/mL injection solution RxNorm: 533343 Milliliter 07/04/2018 No longer Active cyanocobalamin (vit B-12) 1,000 mcg/mL injection solution RxNorm: 930682 Milliliter 06/20/2018 No longer Active cyanocobalamin (vit B-12) 1,000 mcg/mL injection solution RxNorm: 728060 Milliliter 06/06/2018 No longer Active cyanocobalamin (vit B-12) 1,000 mcg/mL injection solution RxNorm: 126603 Milliliter 05/24/2018 No longer Active cyanocobalamin (vit B-12) 1,000 mcg/mL injection solution RxNorm: 708916 Milliliter 05/09/2018 No longer Active cyanocobalamin (vit B-12) 1,000 mcg/mL injection solution RxNorm: 208405 Milliliter 04/26/2018 No longer Active cyanocobalamin (vit B-12) 1,000 mcg/mL injection solution RxNorm: 549803 Milliliter 04/12/2018 No longer Active cyanocobalamin (vit B-12) 1,000 mcg/mL injection solution RxNorm: 616510 Milliliter 03/30/2018 No longer Active cyanocobalamin (vit B-12) 1,000 mcg/mL injection solution RxNorm: 988710 Milliliter 03/16/2018 No longer Active cyanocobalamin (vit B-12) 1,000 mcg/mL injection solution RxNorm: 270594 Milliliter 03/02/2018 No longer Active cyanocobalamin (vit B-12) 1,000 mcg/mL injection solution RxNorm: 407112 Milliliter 02/08/2018 No longer Active cyanocobalamin (vit B-12) 1,000 mcg/mL injection solution RxNorm: 136309 Milliliter 01/24/2018 No longer Active cyanocobalamin (vit B-12) 1,000 mcg/mL injection solution RxNorm: 481021 Milliliter 01/10/2018 No longer Active cyanocobalamin (vit B-12) 1,000 mcg/mL injection solution RxNorm: 810457 Milliliter 12/27/2017 No longer Active cyanocobalamin (vit B-12) 1,000 mcg/mL injection solution RxNorm: 270167 1Milliliter 12/12/2017 No longer Active cyanocobalamin (vit B-12) 1,000 mcg/mL injection solution RxNorm: 500515 Milliliter 12/01/2017 No longer Active cyanocobalamin (vit B-12) 1,000 mcg/mL injection solution RxNorm: 891162 1Milliliter 11/17/2017 No longer Active cyanocobalamin (vit B-12) 1,000 mcg/mL injection solution RxNorm: 921186 1Milliliter 11/02/2017 No longer Active cyanocobalamin (vit B-12) 1,000 mcg/mL injection solution RxNorm: 813608 1Milliliter 10/20/2017 No longer Active cyanocobalamin (vit B-12) 1,000 mcg/mL injection solution RxNorm: 838364 Milliliter 10/06/2017 No longer Active cyanocobalamin (vit B-12) 1,000 mcg/mL injection solution RxNorm: 155258 Milliliter 09/21/2017 No longer Active Kenalog 40 mg/mL suspension for injection RxNorm: 2009114 Milliliter 09/15/2017 No longer Active cyanocobalamin (vit B-12) 1,000 mcg/mL injection solution RxNorm: 283303 Milliliter 09/07/2017 No longer Active cyanocobalamin (vit B-12) 1,000 mcg/mL injection solution RxNorm: 792962 Milliliter 08/24/2017 No longer Active cyanocobalamin (vit B-12) 1,000 mcg/mL injection solution RxNorm: 900705 Milliliter 07/06/2017 No longer Active cyanocobalamin (vit B-12) 1,000 mcg/mL injection solution RxNorm: 322879 Milliliter 06/20/2017 No longer Active Kenalog 40 mg/mL suspension for injection RxNorm: 7505536 1Milliliter 06/20/2017 No longer Active cyanocobalamin (vit B-12) 1,000 mcg/mL injection solution RxNorm: 899830 Milliliter 06/05/2017 No longer Active cyanocobalamin (vit B-12) 1,000 mcg/mL injection solution RxNorm: 697032 Milliliter 05/25/2017 No longer Active cyanocobalamin (vit B-12) 1,000 mcg/mL injection solution RxNorm: 260486 Milliliter 05/16/2017 No longer Active cyanocobalamin (vit B-12) 1,000 mcg/mL injection solution RxNorm: 518285 1Milliliter 05/01/2017 No longer Active cyanocobalamin (vit B-12) 1,000 mcg/mL injection solution RxNorm: 840349 Milliliter 04/18/2017 No longer Active cyanocobalamin (vit B-12) 1,000 mcg/mL injection solution RxNorm: 155130 Milliliter 04/06/2017 No longer Active cyanocobalamin (vit B-12) 1,000 mcg/mL injection solution RxNorm: 158238 Milliliter 03/22/2017 No longer Active cyanocobalamin (vit B-12) 1,000 mcg/mL injection solution RxNorm: 646448 Milliliter 03/09/2017 No longer Active cyanocobalamin (vit B-12) 1,000 mcg/mL injection solution RxNorm: 940415 Milliliter 02/23/2017 No longer Active cyanocobalamin (vit B-12) 1,000 mcg/mL injection solution RxNorm: 254195 Milliliter 02/09/2017 No longer Active cyanocobalamin (vit B-12) 1,000 mcg/mL injection solution RxNorm: 175680 Milliliter 01/23/2017 No longer Active cyanocobalamin (vit B-12) 1,000 mcg/mL injection solution RxNorm: 786344 Milliliter 01/10/2017 No longer Active cyanocobalamin (vit B-12) 1,000 mcg/mL injection solution RxNorm: 511307 1Milliliter 12/28/2016 No longer Active cyanocobalamin (vit B-12) 1,000 mcg/mL injection solution RxNorm: 294983 Milliliter 12/14/2016 No longer Active cyanocobalamin (vit B-12) 1,000 mcg/mL injection solution RxNorm: 617723 Milliliter 11/24/2016 No longer Active cyanocobalamin (vit B-12) 1,000 mcg/mL injection solution RxNorm: 802700 1Milliliter 11/07/2016 No longer Active cyanocobalamin (vit B-12) 1,000 mcg/mL injection solution RxNorm: 015052 Milliliter 10/24/2016 No longer Active cyanocobalamin (vit B-12) 1,000 mcg/mL injection solution RxNorm: 984169 1Milliliter 09/29/2016 No longer Active cyanocobalamin (vit B-12) 1,000 mcg/mL injection solution RxNorm: 993071 Milliliter 08/29/2016 No longer Active cyanocobalamin (vit B-12) 1,000 mcg/mL injection solution RxNorm: 264277 Milliliter 08/04/2016 No longer Active cyanocobalamin (vit B-12) 1,000 mcg/mL injection solution RxNorm: 142148 Milliliter 07/21/2016 No longer Active cyanocobalamin (vit B-12) 1,000 mcg/mL injection solution RxNorm: 525032 1Milliliter 07/05/2016 No longer Active cyanocobalamin (vit B-12) 1,000 mcg/mL injection solution RxNorm: 176616 1Milliliter 06/22/2016 No longer Active cyanocobalamin (vit B-12) 1,000 mcg/mL injection solution RxNorm: 253543 Milliliter 06/09/2016 No longer Active cyanocobalamin (vit B-12) 1,000 mcg/mL injection solution RxNorm: 593694 1Milliliter 05/25/2016 No longer Active cyanocobalamin (vit B-12) 1,000 mcg/mL injection solution RxNorm: 554509 Milliliter 05/10/2016 No longer Active cyanocobalamin (vit B-12) 1,000 mcg/mL injection solution RxNorm: 749042 Milliliter 04/26/2016 No longer Active cyanocobalamin (vit B-12) 1,000 mcg/mL injection solution RxNorm: 116552 Milliliter 04/11/2016 No longer Active cyanocobalamin (vit B-12) 1,000 mcg/mL injection solution RxNorm: 657707 Milliliter 03/31/2016 No longer Active cyanocobalamin (vit B-12) 1,000 mcg/mL injection solution RxNorm: 840398 1Milliliter 03/15/2016 No longer Active cyanocobalamin (vit B-12) 1,000 mcg/mL injection solution RxNorm: 511622 Milliliter 02/25/2016 No longer Active cyanocobalamin (vit B-12) 1,000 mcg/mL injection solution RxNorm: 025195 1Milliliter 02/02/2016 No longer Active cyanocobalamin (vit B-12) 1,000 mcg/mL injection solution RxNorm: 392830 Milliliter 01/18/2016 No longer Active cyanocobalamin (vit B-12) 1,000 mcg/mL injection solution RxNorm: 339864 Milliliter 12/29/2015 No longer Active cyanocobalamin (vit B-12) 1,000 mcg/mL injection solution RxNorm: 130878 Milliliter 12/08/2015 No longer Active cyanocobalamin (vit B-12) 1,000 mcg/mL injection solution RxNorm: 225098 Milliliter 11/23/2015 No longer Active cyanocobalamin (vit B-12) 1,000 mcg/mL injection solution RxNorm: 930758 Milliliter 11/11/2015 No longer Active cyanocobalamin (vit B-12) 1,000 mcg/mL injection solution RxNorm: 836863 1Milliliter 10/29/2015 No longer Active cyanocobalamin (vit B-12) 1,000 mcg/mL injection solution RxNorm: 663250 1Milliliter 10/12/2015 No longer Active cyanocobalamin (vit B-12) 1,000 mcg/mL injection solution RxNorm: 336748 1Milliliter 09/29/2015 No longer Active cyanocobalamin (vit B-12) 1,000 mcg/mL injection solution RxNorm: 213610 1Milliliter 09/17/2015 No longer Active cyanocobalamin (vit B-12) 1,000 mcg/mL injection solution RxNorm: 317547 1Milliliter 09/03/2015 No longer Active cyanocobalamin (vit B-12) 1,000 mcg/mL injection solution RxNorm: 508043 Milliliter 08/17/2015 No longer Active cyanocobalamin (vit B-12) 1,000 mcg/mL injection solution RxNorm: 201306 Milliliter 08/06/2015 No longer Active cyanocobalamin (vit B-12) 1,000 mcg/mL injection solution RxNorm: 221280 Milliliter 07/22/2015 No longer Active cyanocobalamin (vit B-12) 1,000 mcg/mL injection solution RxNorm: 551994 Milliliter 07/08/2015 No longer Active cyanocobalamin (vit B-12) 1,000 mcg/mL injection solution RxNorm: 885112 Milliliter 06/23/2015 No longer Active cyanocobalamin (vit B-12) 1,000 mcg/mL injection solution RxNorm: 987325 1Milliliter 06/08/2015 No longer Active cyanocobalamin (vit B-12) 1,000 mcg/mL injection solution RxNorm: 890000 Milliliter 05/27/2015 No longer Active cyanocobalamin (vit B-12) 1,000 mcg/mL injection solution RxNorm: 744853 1Milliliter 05/12/2015 No longer Active cyanocobalamin (vit B-12) 1,000 mcg/mL injection kit RxNorm: 018314 kit 04/30/2015 No longer Active cyanocobalamin (vit B-12) 1,000 mcg/mL injection solution RxNorm: 158580 Milliliter 04/16/2015 No longer Active cyanocobalamin (vit B-12) 1,000 mcg/mL injection solution RxNorm: 867781 Milliliter 04/02/2015 No longer Active cyanocobalamin (vit B-12) 1,000 mcg/mL injection solution RxNorm: 550555 Milliliter 03/18/2015 No longer Active cyanocobalamin (vit B-12) 1,000 mcg/mL injection solution RxNorm: 252372 Milliliter 03/03/2015 No longer Active cyanocobalamin (vit B-12) 1,000 mcg/mL injection solution RxNorm: 878818 Milliliter 02/18/2015 No longer Active cyanocobalamin (vit B-12) 1,000 mcg/mL injection solution RxNorm: 132607 Milliliter 02/04/2015 No longer Active cyanocobalamin (vit B-12) 1,000 mcg/mL injection solution RxNorm: 590598 Milliliter 01/22/2015 No longer Active cyanocobalamin (vit B-12) 1,000 mcg/mL injection solution RxNorm: 813957 Milliliter 01/08/2015 No longer Active cyanocobalamin (vit B-12) 1,000 mcg/mL injection solution RxNorm: 792091 Milliliter 12/25/2014 No longer Active cyanocobalamin (vit B-12) 1,000 mcg/mL injection solution RxNorm: 569040 Milliliter 12/10/2014 No longer Active cyanocobalamin (vit B-12) 1,000 mcg/mL injection solution RxNorm: 945822 Milliliter 11/26/2014 No longer Active cyanocobalamin (vit B-12) 1,000 mcg/mL injection kit RxNorm: 429373 Milliliter 11/12/2014 No longer Active cyanocobalamin (vit B-12) 1,000 mcg/mL injection solution RxNorm: 298569 Milliliter 10/28/2014 No longer Active Immunizations Vaccine Codes Date Status Influenza CVX: 141 03/16/2018 completed Influenza CVX: 141 03/22/2017 completed Pneumococcal (Adult) CVX: 33 05/25/2016 completed Influenza CVX: 141 03/15/2016 completed Assessments Condition Codes Effective Dates 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 ICD-9: 281.1 07/04/2018 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 ICD-9: 281.0 06/20/2018 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 ICD-9: 266.2 06/06/2018 Type 2 diabetes mellitus without complications ICD-10: [...] (3rd IS) 3.20 uIU/mL 02/26/2018 Free T4 [id number] FREE T4 0.99 ng/dL 02/26/2018 Cbc With [...] 28.5 pg 02/26/2018 Cbc With Differential Ord2 [place]% 10.3 % 02/26/2018 Cbc With Differential Ord2 [...] 1.80 K/ul 02/26/2018 Cbc With Differential Ord2 [place] ABS# 0.7 K/ul 02/26/2018 Cbc With Differential Ord2 Eos ABS# 0.2 K/ul 02/26/2018 Cbc With Differential Ord2 Baso ABS# 0.0 K/ul 02/26/2018 B12 Lgt140 B12 889.00 pg/ml 02/26/2018 Digoxin Ord9 DIGOXIN 0.7 NG/ML 11/23/2017 Comp Metabolic Bcl981 NA 142 mEq/L 11/23/2017 Comp Metabolic Vyy647 K 4.9 mEq/L 11/23/2017 Comp Metabolic Abn407 CL 112 mEq/L 11/23/2017 Comp Metabolic Pyg843 CO2 18.0 mEq/L 11/23/2017 Comp Metabolic Ezq772 ANION GAP 17 11/23/2017 Comp Metabolic Ixv991 GLUCOSE 123 mg/dL 11/23/2017 Comp Metabolic Swu158 Creat 1.0 mg/dL 11/23/2017 Comp Metabolic Dvz064 eGFR 59 ml/min/1.73m2 11/23/2017 Comp Metabolic Zss236 BUN 24 mg/dL 11/23/2017 Comp Metabolic Mxh999 B/C Ratio 25.0 Ratio 11/23/2017 Comp Metabolic Beb173 CALCIUM 9.4 mg/dL 11/23/2017 Comp Metabolic Yzq831 ALK PHOS 56 U/L 11/23/2017 Comp Metabolic Tjh908 AST(SGOT) 17 U/L 11/23/2017 Comp Metabolic Uik156 ALT(SGPT) 16 U/L 11/23/2017 Comp Metabolic Yqk585 BILI T 0.7 mg/dL 11/23/2017 Comp Metabolic Zvq515 ALBUMIN 3.8 g/dL 11/23/2017 Comp Metabolic Mqs495 TPRO 6.2 g/dL 11/23/2017 Comp Metabolic Cuk646 GLOB 2.4 g/dL 11/23/2017 Comp Metabolic Ber124 A/G Ratio 1.6 Ratio 11/23/2017 Comp Metabolic Uqv460 Osmo 289 mOsmo 11/23/2017 Free T4 Jdk556 FREE T4 1.04 ng/dL 11/23/2017 %Hba1C Mkh608 % HbA1c 59271- 6 6.4 % 11/23/2017 %Hba1C Aey990 Gluc Ave 137 mg/dL 11/23/2017 Lipid Ord30 CHOL 179 mg/dL 11/23/2017 Lipid Ord30 HDL 51.0 mg/dl 11/23/2017 Lipid Ord30 TRIG 134 mg/dL 11/23/2017 Lipid Ord30 LDL 101 mg/dL 11/23/2017 Lipid Ord30 C/HDL 3.5 Ratio 11/23/2017 Tsh Ord6 TSH (3rd IS) 1.00 uIU/mL 11/23/2017 Microalbumin Iqm859 MicroAlb <0.7 mg/dL 11/23/2017 Comp Metabolic Nub654 NA 141 mEq/L 01/23/2017 Comp Metabolic Rrr583 K 4.5 mEq/L 01/23/2017 Comp Metabolic Ksh060 CL 107 mEq/L 01/23/2017 Comp Metabolic Xzf242 CO2 21.0 mEq/L 01/23/2017 Comp Metabolic Qhp314 ANION GAP 18 01/23/2017 Comp Metabolic Zfe063 GLUCOSE 138 mg/dL 01/23/2017 Comp Metabolic Sne751 Creat 1.0 mg/dL 01/23/2017 Comp Metabolic Qty526 eGFR 56 ml/min/1.73m2 01/23/2017 Comp Metabolic Dpl112 BUN 26 mg/dL 01/23/2017 Comp Metabolic Iap175 B/C Ratio 25.7 Ratio 01/23/2017 Comp Metabolic Ybo237 CALCIUM 9.0 mg/dL 01/23/2017 Comp Metabolic Wga014 ALK PHOS 37 U/L 01/23/2017 Comp Metabolic Bql876 AST(SGOT) 20 U/L 01/23/2017 Comp Metabolic Qlp622 ALT(SGPT) 25 U/L 01/23/2017 Comp Metabolic Ong351 BILI T 0.9 mg/dL 01/23/2017 Comp Metabolic Uva181 ALBUMIN 3.8 g/dL 01/23/2017 Comp Metabolic Gnj291 TPRO 6.5 g/dL 01/23/2017 Comp Metabolic Abg246 GLOB 2.7 g/dL 01/23/2017 Comp Metabolic Myo178 A/G Ratio 1.4 Ratio 01/23/2017 Comp Metabolic Zer563 Osmo 288 mOsmo 01/23/2017 Free T4 Cyo344 FREE T4 1.05 ng/dL 01/23/2017 %Hba1C Hff073 % HbA1c 25552- 6 6.1 % 01/23/2017 %Hba1C Nxd244 Gluc Ave 128 mg/dL 01/23/2017 Tsh Ord6 hTSH II 1.68 uIU/mL 01/23/2017 Culture Urine [id number] URINE CULTURE SEE NOTES 11/10/2016 Culture Urine [id number] Continued Results 11/10/2016 Urine Culture Ucult Complete [...] Ord15 CALCIUM 9.3 mg/dL 09/29/2016 Free T4 Jyy073 FREE T4 0.99 ng/dL 09/07/2016 Cbc With [...] 30.0 pg 09/07/2016 Cbc With Differential Ord2 [place]% 9.8 % 09/07/2016 Cbc With Differential Ord2 [...] 1.75 K/ul 09/07/2016 Cbc With Differential Ord2 [place] ABS# 0.6 K/ul 09/07/2016 Cbc With Differential Ord2 Eos ABS# 0.1 K/ul 09/07/2016 Cbc With Differential Ord2 Baso ABS# 0.0 K/ul 09/07/2016 Tsh Ord6 hTSH II 1.41 uIU/mL 09/07/2016 Culture Urine [id number] URINE CULTURE SEE NOTES 06/27/2016 Lipid Ord30 CHOL 196 mg/dL 06/22/2016 Lipid Ord30 HDL 63.0 mg/dl 06/22/2016 Lipid Ord30 TRIG 154 mg/dL 06/22/2016 Lipid Ord30 LDL 102 mg/dL 06/22/2016 Lipid Ord30 C/HDL 3.1 Ratio 06/22/2016 Hepatic Can416 ALBUMIN 4.2 g/dL 06/22/2016 Hepatic [id number] TPRO 7.0 g/dL 06/22/2016 Hepatic Pol036 GLOB 2.8 g/dL 06/22/2016 Hepatic Ffq141 A/G Ratio 1.5 Ratio 06/22/2016 Hepatic [id number] ALK PHOS 54 U/L 06/22/2016 Hepatic [id number] ALT(SGPT) 30 U/L 06/22/2016 Hepatic [id number] AST(SGOT) 24 U/L 06/22/2016 Hepatic Hon280 BILI T 1.1 mg/dL 06/22/2016 Hepatic Vfz240 BILI D 0.2 mg/dL 06/22/2016 Hepatic Qqg913 BILI I 0.9 mg/dL 06/22/2016 Comp Metabolic Vrq809 NA 139 mEq/L 06/14/2016 Comp Metabolic Ejg153 K 4.6 mEq/L 06/14/2016 Comp Metabolic Oth315 CL 108 mEq/L 06/14/2016 Comp Metabolic Wfy834 CO2 22.0 mEq/L 06/14/2016 Comp Metabolic Mhx961 ANION GAP 14 06/14/2016 Comp Metabolic Flc944 GLUCOSE 114 mg/dL 06/14/2016 Comp Metabolic Rsz616 Creat 1.2 mg/dL 06/14/2016 Comp Metabolic Xpy092 eGFR 48 ml/min/1.73m2 06/14/2016 Comp Metabolic Fwg188 BUN 24 mg/dL 06/14/2016 Comp Metabolic Wdj992 B/C Ratio 20.9 Ratio 06/14/2016 Comp Metabolic Pcc812 CALCIUM 9.9 mg/dL 06/14/2016 Comp Metabolic Qdd212 ALK PHOS 47 U/L 06/14/2016 Comp Metabolic Zuc869 AST(SGOT) 28 U/L 06/14/2016 Comp Metabolic Kiv694 ALT(SGPT) 32 U/L 06/14/2016 Comp Metabolic Vpi448 BILI T 0.9 mg/dL 06/14/2016 Comp Metabolic Kzy074 ALBUMIN 4.1 g/dL 06/14/2016 Comp Metabolic Xch892 TPRO 6.9 g/dL 06/14/2016 Comp Metabolic Ykz510 GLOB 2.8 g/dL 06/14/2016 Comp Metabolic Xvv543 A/G Ratio 1.5 Ratio 06/14/2016 Comp Metabolic Avv559 Osmo 282 mOsmo 06/14/2016 Tsh Ord6 hTSH II 1.26 uIU/mL 06/14/2016 Free T4 Lpe834 FREE T4 1.09 ng/dL 06/14/2016 Tsh Ord6 hTSH II 0.28 uIU/mL 02/02/2016 Digoxin Ord9 DIGOXIN 0.7 NG/ML 02/02/2016 Free T4 Civ500 FREE T4 1.23 ng/dL 02/02/2016 Hepatic Rzb323 ALBUMIN 4.0 g/dL 02/02/2016 Hepatic Qmf837 TPRO 7.0 g/dL 02/02/2016 Hepatic Iwd909 GLOB 3.0 g/dL 02/02/2016 Hepatic Ysb626 A/G Ratio 1.3 Ratio 02/02/2016 Hepatic Mmw144 ALK PHOS 57 U/L 02/02/2016 Hepatic Zng673 ALT(SGPT) 62 U/L 02/02/2016 Hepatic Xiw582 AST(SGOT) 54 U/L 02/02/2016 Hepatic Vqq200 BILI T 0.8 mg/dL 02/02/2016 Hepatic Mdj616 BILI D 0.2 mg/dL 02/02/2016 Hepatic Les732 BILI I 0.6 mg/dL 02/02/2016 Urine Culture Ucult Preliminary No Growth Day 1 11/25/2015 Urine Culture Ucult Complete No Growth Day 2 11/25/2015 Hepatic Gvh152 ALBUMIN 3.9 g/dL 11/11/2015 Hepatic Vhu259 TPRO 7.0 g/dL 11/11/2015 Hepatic Zwq291 GLOB 3.1 g/dL 11/11/2015 Hepatic Wgv525 A/G Ratio 1.3 Ratio 11/11/2015 Hepatic Ecl281 ALK PHOS 63 U/L 11/11/2015 Hepatic Wjx071 ALT(SGPT) 107 U/L 11/11/2015 Hepatic Wle199 AST(SGOT) 101 U/L 11/11/2015 Hepatic Dmc399 BILI T 0.6 mg/dL 11/11/2015 Hepatic Fmo025 BILI D 0.1 mg/dL 11/11/2015 Hepatic Tid419 BILI I 0.5 mg/dL 11/11/2015 Comp Metabolic Pmr879 NA 138 mEq/L 10/29/2015 Comp Metabolic Hyf659 K 5.0 mEq/L 10/29/2015 Comp Metabolic Mcv496 CL 105 mEq/L 10/29/2015 Comp Metabolic Pki244 CO2 23.0 mEq/L 10/29/2015 Comp Metabolic Ygo688 ANION GAP 15 10/29/2015 Comp Metabolic Qml415 GLUCOSE 105 mg/dL 10/29/2015 Comp Metabolic Ffi916 Creat 1.0 mg/dL 10/29/2015 Comp Metabolic Qiz297 eGFR 55 ml/min/1.73m2 10/29/2015 Comp Metabolic Bsz135 BUN 20 mg/dL 10/29/2015 Comp Metabolic Cby765 B/C Ratio 19.4 Ratio 10/29/2015 Comp Metabolic Xld110 CALCIUM 8.8 mg/dL 10/29/2015 Comp Metabolic Eiu585 ALK PHOS 56 U/L 10/29/2015 Comp Metabolic Wxa374 AST(SGOT) 66 U/L 10/29/2015 Comp Metabolic Hfb568 ALT(SGPT) 78 U/L 10/29/2015 Comp Metabolic Ndj930 BILI T 0.7 mg/dL 10/29/2015 Comp Metabolic Ziy432 ALBUMIN 3.6 g/dL 10/29/2015 Comp Metabolic Xeb710 TPRO 6.6 g/dL 10/29/2015 Comp Metabolic Ceq941 GLOB 3.0 g/dL 10/29/2015 Comp Metabolic Eza532 A/G Ratio 1.2 Ratio 10/29/2015 Comp Metabolic Jnp209 Osmo 279 mOsmo 10/29/2015 Comp Metabolic Jpj415 NA 136 mEq/L 09/03/2015 Comp Metabolic Caj392 K 4.4 mEq/L 09/03/2015 Comp Metabolic Utx160 CL 103 mEq/L 09/03/2015 Comp Metabolic Kfc918 CO2 24.0 mEq/L 09/03/2015 Comp Metabolic Gyz479 ANION GAP 13 09/03/2015 Comp Metabolic Byo798 GLUCOSE 87 mg/dL 09/03/2015 Comp Metabolic Ouy062 Creat 1.1 mg/dL 09/03/2015 Comp Metabolic Wza220 eGFR 53 ml/min/1.73m2 09/03/2015 Comp Metabolic Nbj791 BUN 17 mg/dL 09/03/2015 Comp Metabolic Lbx106 B/C Ratio 16.2 Ratio 09/03/2015 Comp Metabolic Tpb151 CALCIUM 9.0 mg/dL 09/03/2015 Comp Metabolic Vbs713 ALK PHOS 55 U/L 09/03/2015 Comp Metabolic Ksa180 AST(SGOT) 83 U/L 09/03/2015 Comp Metabolic Kfn996 ALT(SGPT) 126 U/L 09/03/2015 Comp Metabolic Idp183 BILI T 0.9 mg/dL 09/03/2015 Comp Metabolic Bug503 ALBUMIN 3.9 g/dL 09/03/2015 Comp Metabolic Gfa665 TPRO 6.8 g/dL 09/03/2015 Comp Metabolic Onn176 GLOB 2.9 g/dL 09/03/2015 Comp Metabolic Bih803 A/G Ratio 1.4 Ratio 09/03/2015 Comp Metabolic Rtj678 Osmo 273 mOsmo 09/03/2015 Total T3 Ord42 TT3 0.6 ng/ml 07/09/2015 Tsh Ord6 hTSH II 1.62 uIU/mL 07/09/2015 Total T3 Ord42 TT3 0.5 ng/ml 04/02/2015 Free T4 Qpy787 FREE T4 1.23 ng/dL 04/02/2015 Tsh Ord6 [...] Procedure Codes Date THER/PROPH/DIAG INJ SC/IM CPT-4: 38032 07/04/2018 THER/PROPH/DIAG INJ SC/IM CPT-4: 70164 06/20/2018 THER/PROPH/DIAG INJ SC/IM CPT-4: 69714 06/06/2018 VITAMIN B12 INJECTION CPT- 4: J3420 06/06/2018 THER/PROPH/DIAG INJ SC/IM CPT-4: 26853 05/24/2018 THER/PROPH/DIAG INJ SC/IM CPT-4: 94198 05/09/2018 THER/PROPH/DIAG INJ SC/IM CPT-4: 27434 04/26/2018 VITAMIN B12 INJECTION CPT- 4: J3420 04/26/2018 THER/PROPH/DIAG INJ SC/IM CPT-4: 91664 04/12/2018 THER/PROPH/DIAG INJ SC/IM CPT-4: 41411 03/30/2018 THER/PROPH/DIAG INJ SC/IM CPT-4: 40050 03/16/2018 VITAMIN B12 INJECTION CPT- 4: J3420 03/16/2018 ADMIN INFLUENZA VIRUS VAC CPT-4: G0008 03/16/2018 FLU VACC PRSV FREE INC ANTIG Formatting Model/CDA Sections, Assigned to/Nga Ojeda CPT-4: 17922Wyrbryl 03/16/2018 THER/PROPH/DIAG INJ SC/IM CPT-4: 46384 03/02/2018 THER/PROPH/DIAG INJ SC/IM CPT-4: 71411 02/08/2018 THER/PROPH/DIAG INJ SC/IM CPT-4: 53959 01/24/2018 THER/PROPH/DIAG INJ SC/IM CPT-4: 64847 01/10/2018 THER/PROPH/DIAG INJ SC/IM CPT-4: 48693 12/27/2017 VITAMIN B12 INJECTION CPT- 4: J3420 12/27/2017 THER/PROPH/DIAG INJ SC/IM CPT-4: 23764 12/12/2017 THER/PROPH/DIAG INJ SC/IM CPT-4: 85883 12/01/2017 VITAMIN B12 INJECTION CPT- 4: J3420 12/01/2017 THER/PROPH/DIAG INJ SC/IM CPT-4: 43574 11/17/2017 THER/PROPH/DIAG INJ SC/IM CPT-4: 42621 11/02/2017 THER/PROPH/DIAG INJ SC/IM CPT-4: 04906 10/20/2017 THER/PROPH/DIAG INJ SC/IM CPT-4: 90590 10/06/2017 THER/PROPH/DIAG INJ SC/IM CPT-4: 75733 09/21/2017 TRIAMCINOLONE ACET INJ NOS CPT-4: J3301 09/15/2017 THER/PROPH/DIAG INJ SC/IM CPT-4: 95545 09/07/2017 THER/PROPH/DIAG INJ SC/IM CPT-4: 85796 08/24/2017 THER/PROPH/DIAG INJ SC/IM CPT-4: 70014 07/06/2017 THER/PROPH/DIAG INJ SC/IM CPT-4: 26378 06/20/2017 TRIAMCINOLONE ACET INJ NOS CPT-4: J3301 06/20/2017 PPPS, SUBSEQ VISIT CPT- 4: G0439 06/05/2017 THER/PROPH/DIAG INJ SC/IM CPT-4: 22300 06/05/2017 THER/PROPH/DIAG INJ SC/IM CPT-4: 03308 05/25/2017 VITAMIN B12 INJECTION CPT- 4: J3420 05/25/2017 THER/PROPH/DIAG INJ SC/IM CPT-4: 14094 05/16/2017 THER/PROPH/DIAG INJ SC/IM CPT-4: 99009 05/01/2017 THER/PROPH/DIAG INJ SC/IM CPT-4: 17046 04/18/2017 THER/PROPH/DIAG INJ SC/IM CPT-4: 16542 04/06/2017 ADMIN INFLUENZA VIRUS VAC CPT-4: G0008 03/22/2017 FLU VACC PRSV FREE INC ANTIG CPT-4: 44598 03/22/2017 THER/PROPH/DIAG INJ SC/IM CPT-4: 99872 03/09/2017 THER/PROPH/DIAG INJ SC/IM CPT-4: 94310 02/23/2017 THER/PROPH/DIAG INJ SC/IM CPT-4: 64292 02/09/2017 THER/PROPH/DIAG INJ SC/IM CPT-4: 88213 01/23/2017 THER/PROPH/DIAG INJ SC/IM CPT-4: 65034 01/10/2017 THER/PROPH/DIAG INJ SC/IM CPT-4: 26288 12/28/2016 THER/PROPH/DIAG INJ SC/IM CPT-4: 62457 12/14/2016 THER/PROPH/DIAG INJ SC/IM CPT-4: 75428 11/24/2016 URINALYSIS NONAUTO W/O SCOPE CPT-4: 78869 11/07/2016 THER/PROPH/DIAG INJ SC/IM CPT-4: 81655 11/07/2016 THER/PROPH/DIAG INJ SC/IM CPT-4: 14741 10/24/2016 THER/PROPH/DIAG INJ SC/IM CPT-4: 84372 09/29/2016 THER/PROPH/DIAG INJ SC/IM CPT-4: 47490 08/29/2016 THER/PROPH/DIAG INJ SC/IM CPT-4: 88505 08/04/2016 THER/PROPH/DIAG INJ SC/IM CPT-4: 81556 07/21/2016 THER/PROPH/DIAG INJ SC/IM CPT-4: 30212 07/05/2016 THER/PROPH/DIAG INJ SC/IM CPT-4: 32952 06/22/2016 URINALYSIS NONAUTO W/O SCOPE CPT-4: 56677 06/22/2016 THER/PROPH/DIAG INJ SC/IM CPT-4: 01844 06/09/2016 PPPS, SUBSEQ VISIT CPT- 4: G0439 05/30/2016 ADMIN PNEUMOCOCCAL VACCINE SNOMED CT: 66821724 CPT-4: G0009 05/25/2016 Pneumococcal Polysaccharide Vaccine, 23-Valent, Ad CPT-4: 42480 05/25/2016 THER/PROPH/DIAG INJ SC/IM CPT-4: 26286 05/25/2016 THER/PROPH/DIAG INJ SC/IM CPT-4: 06955 05/10/2016 TRIAMCINOLONE ACET INJ NOS CPT-4: J3301 04/26/2016 VITAMIN B12 INJECTION CPT- 4: J3420 04/26/2016 THER/PROPH/DIAG INJ SC/IM CPT-4: 51882 04/11/2016 THER/PROPH/DIAG INJ SC/IM CPT-4: 70210 03/31/2016 ADMIN INFLUENZA VIRUS VAC CPT-4: G0008 03/15/2016 FLU VACC 4 STEPHANIE [address] YRS PLUS IM SNOMED CT: 83382026 CPT-4: 31120 03/15/2016 THER/PROPH/DIAG INJ SC/IM CPT-4: 80109 02/25/2016 THER/PROPH/DIAG INJ SC/IM CPT-4: 91126 02/02/2016 THER/PROPH/DIAG INJ SC/IM CPT-4: 70483 01/18/2016 VITAMIN B12 INJECTION CPT- 4: J3420 12/29/2015 THER/PROPH/DIAG INJ SC/IM CPT-4: 47883 12/29/2015 THER/PROPH/DIAG INJ SC/IM CPT-4: 14590 12/08/2015 THER/PROPH/DIAG INJ SC/IM CPT-4: 18867 11/23/2015 URINALYSIS NONAUTO W/O SCOPE CPT-4: 15148 11/23/2015 THER/PROPH/DIAG INJ SC/IM CPT-4: 36572 11/11/2015 THER/PROPH/DIAG INJ SC/IM CPT-4: 75199 10/29/2015 THER/PROPH/DIAG INJ SC/IM CPT-4: 96761 10/12/2015 VITAMIN B12 INJECTION CPT- 4: J3420 10/12/2015 THER/PROPH/DIAG INJ SC/IM CPT-4: 66425 09/29/2015 THER/PROPH/DIAG INJ SC/IM CPT-4: 20395 09/17/2015 THER/PROPH/DIAG INJ SC/IM CPT-4: 23827 09/03/2015 THER/PROPH/DIAG INJ SC/IM CPT-4: 56832 08/17/2015 THER/PROPH/DIAG INJ SC/IM CPT-4: 74518 08/06/2015 THER/PROPH/DIAG INJ SC/IM CPT-4: 47449 07/22/2015 THER/PROPH/DIAG INJ SC/IM CPT-4: 22687 07/08/2015 THER/PROPH/DIAG INJ SC/IM CPT-4: 97582 06/23/2015 THER/PROPH/DIAG INJ SC/IM CPT-4: 24939 06/08/2015 THER/PROPH/DIAG INJ SC/IM CPT-4: 75392 05/27/2015 DESTRUCT PREMALG LESION CPT-4: 73334 05/19/2015 DESTRUCT PREMALG LES 2-14 CPT-4: 14833 05/19/2015 THER/PROPH/DIAG INJ SC/IM CPT-4: 59580 05/12/2015 VITAMIN B12 INJECTION CPT- 4: J3420 05/12/2015 THER/PROPH/DIAG INJ SC/IM CPT-4: 01206 04/30/2015 VITAMIN B12 INJECTION CPT- 4: J3420 04/30/2015 THER/PROPH/DIAG INJ SC/IM CPT-4: 37787 04/16/2015 THER/PROPH/DIAG INJ SC/IM CPT-4: 35570 04/02/2015 VITAMIN B12 INJECTION CPT- 4: J3420 04/02/2015 THER/PROPH/DIAG INJ SC/IM CPT-4: 55607 03/18/2015 THER/PROPH/DIAG INJ SC/IM CPT-4: 16518 03/03/2015 THER/PROPH/DIAG INJ SC/IM CPT-4: 87544 02/18/2015 THER/PROPH/DIAG INJ SC/IM CPT-4: 13357 02/04/2015 VITAMIN B12 INJECTION CPT- 4: J3420 02/04/2015 THER/PROPH/DIAG INJ SC/IM CPT-4: 18386 01/22/2015 THER/PROPH/DIAG INJ SC/IM CPT-4: 31812 01/08/2015 VITAMIN B12 INJECTION CPT- 4: J3420 01/08/2015 THER/PROPH/DIAG INJ SC/IM CPT-4: 17071 12/25/2014 VITAMIN B12 INJECTION CPT- 4: J3420 12/25/2014 THER/PROPH/DIAG INJ SC/IM CPT-4: 31650 12/10/2014 VITAMIN B12 INJECTION CPT- 4: J3420 12/10/2014 THER/PROPH/DIAG INJ SC/IM CPT-4: 86888 11/26/2014 VITAMIN B12 INJECTION CPT- 4: J3420 11/26/2014 THER/PROPH/DIAG INJ SC/IM CPT-4: 99979 11/12/2014 VITAMIN B12 INJECTION CPT- 4: J3420 11/12/2014 THER/PROPH/DIAG INJ SC/IM CPT-4: 94195 10/28/2014 Vital Signs Date Vital 05/03/2018 Blood Pressure 1: 140/70 Code: 8480-6 BMI: 26.0 Code: 93499-1 Heart Rate 1: 70 bpm Height: 5'6" SpO2: 94% Weight: 161 lbs 04/26/2018 Height: 5'6" 02/26/2018 Blood Pressure 1: 130/72 Code: 8480-6 BMI: 27.9 Code: 43005-1 Heart Rate 1: 72 bpm Height: 5'6" SpO2: 93% Weight: 173 lbs 12/12/2017 Blood Pressure 1: 126/74 Code: 8480-6 BMI: 27.4 Code: 37717-3 Heart Rate 1: 83 bpm Height: 5'6" SpO2: 98% Weight: 170 lbs 12/04/2017 Blood Pressure 1: 104/68 Code: 8480-6 BMI: 28.2 Code: 79707-0 Heart Rate 1: 85 bpm Height: 5'6" SpO2: 95% Weight: 175 lbs 11/20/2017 Blood Pressure 1: 130/68 Code: 8480-6 BMI: 28.4 Code: 12843-9 Heart Rate 1: 80 bpm Height: 5'6" SpO2: 99% Weight: 176 lbs 11/02/2017 Height: 5'6" 09/15/2017 Blood Pressure 1: 134/74 Code: 8480-6 BMI: 28.4 Code: 09531-2 Heart Rate 1: 88 bpm Height: 5'6" SpO2: 98% Weight: 176 lbs 09/07/2017 Blood Pressure 1: 124/64 Code: 8480-6 Heart Rate 1: 90 bpm Height: SpO2: 97% Weight: 08/30/2017 Blood Pressure 1: 140/76 Code: 8480-6 BMI: 28.4 Code: 73043-0 Heart Rate 1: 90 bpm Height: 5'6" SpO2: 94% Weight: 176 lbs 07/06/2017 Blood Pressure 1: 132/66 Code: 8480-6 BMI: 29.4 Code: 59622-8 Heart Rate 1: 85 bpm Height: 5'6" SpO2: 97% Weight: 182 lbs 06/20/2017 Blood Pressure 1: 134/86 Code: 8480-6 Heart Rate 1: 90 bpm Height: SpO2: 98% Weight: 06/05/2017 BMI: 29.1 Code: 51129-0 Height: 5'6" Weight: 180 lbs 05/25/2017 Blood Pressure 1: 126/76 Code: 8480-6 BMI: 29.1 Code: 87662-9 Heart Rate 1: 77 bpm Height: 5'6" SpO2: 97% Weight: 180 lbs 03/23/2017 Blood Pressure 1: 142/84 Code: 8480-6 BMI: 29.1 Code: 64277-9 Heart Rate 1: 91 bpm Height: 5'6" SpO2: 97% Weight: 180 lbs 01/23/2017 Blood Pressure 1: 150/90 Code: 8480-6 BMI: 29.9 Code: 51639-9 Heart Rate 1: 81 bpm Height: 5'6" SpO2: 97% Weight: 185 lbs 11/02/2016 Blood Pressure 1: 148/78 Code: 8480-6 BMI: 29.7 Code: 28354-3 Heart Rate 1: 87 bpm Height: 5'6" SpO2: 97% Weight: 184 lbs 09/29/2016 Blood Pressure 1: 128/78 Code: 8480-6 BMI: 29.7 Code: 75808-9 Heart Rate 1: 78 bpm Height: 5'6" SpO2: 98% Weight: 184 lbs 07/26/2016 Blood Pressure 1: 138/72 Code: 8480-6 BMI: 30.0 Code: 99780-9 Heart Rate 1: 85 bpm Height: 5'6" SpO2: 97% Weight: 186 lbs 05/30/2016 Blood Pressure 1: 132/76 Code: 8480-6 BMI: 30.0 Code: 55095-1 Heart Rate 1: 80 bpm Height: 5'6" SpO2: 98% Waist Measure (cm): 99 cm Weight: 186 lbs 05/25/2016 Blood Pressure 1: 132/76 Code: 8480-6 BMI: 30.0 Code: 81245-8 Heart Rate 1: 80 bpm Height: 5'6" SpO2: 96% Weight: 186 lbs 02/25/2016 Blood Pressure 1: 110/64 Code: 8480-6 Heart Rate 1: 82 bpm Height: SpO2: 96% Weight: 01/25/2016 Blood Pressure 1: 118/70 Code: 8480-6 BMI: 30.0 Code: 67368-4 Heart Rate 1: 78 bpm Height: 5'6" SpO2: 97% Weight: 186 lbs 11/11/2015 Blood Pressure 1: 128/82 Code: 8480-6 BMI: 29.2 Code: 24108-8 Heart Rate 1: 86 bpm Height: 5'6" SpO2: 96% Temperature: 36.4 (C) / 97.6 (F) Weight: 181 lbs 10/12/2015 Blood Pressure 1: 118/70 Code: 8480-6 BMI: 29.2 Code: 52922-8 Heart Rate 1: 81 bpm Height: 5'6" SpO2: 95% Weight: 181 lbs 09/03/2015 Blood Pressure 1: 138/78 Code: 8480-6 BMI: 29.9 Code: 04244-3 Heart Rate 1: 88 bpm Height: 5'6" SpO2: 97% Weight: 185 lbs 05/19/2015 Blood Pressure 1: 146/78 Code: 8480-6 BMI: 30.0 Code: 33625-9 Heart Rate 1: 66 bpm Height: 5'6" SpO2: 97% Weight: 186 lbs 05/12/2015 Blood Pressure 1: 120/70 Code: 8480-6 BMI: 29.9 Code: 94084-4 Heart Rate 1: 89 bpm Height: 5'6" SpO2: 95% Weight: 185 lbs 01/13/2015 Blood Pressure 1: 140/90 Code: 8480-6 BMI: 30.3 Code: 91368-8 Heart Rate 1: 84 bpm Height: 5'6" SpO2: 95% Weight: 188 lbs 12/16/2014 Blood Pressure 1: 140/82 Code: 8480-6 BMI: 29.5 Code: 21062-0 Heart Rate 1: 86 bpm Height: 5'6" [...] data Encounters Encounter Performer Location Codes Date [id number] EST. PATIENT, LEVEL IV Diagnosis: Essential (primary) hypertension[ICD10: I10] Diagnosis: Type 2 diabetes mellitus without complications[ICD10: E11.9] Yarely Vega MD, [facility] CPT-4: 93746 05/03/2018 ([id number]) 71858 EST. PATIENT, LEVEL III Diagnosis: Pain in left shoulder[ICD10: M25.512] Diagnosis: Pain in right shoulder[ICD10: M25.511] Yarely Vega MD, [facility] CPT-4: 90064 02/26/2018 ([id number]) 12218 EST. PATIENT, LEVEL III Diagnosis: Nausea[ICD10: R11.0] Diagnosis: Cough[ICD10: R05] Diagnosis: 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 factor deficiency[ICD10: D51.0] Janet Vega MD, [facility] CPT-4: 48620 12/12/2017 ([id number]) 15737 EST. PATIENT, LEVEL IV Diagnosis: Acute bronchitis due to Hemophilus influenzae[ICD10: J20.1] Diagnosis: Cough[ICD10: R05] Yarely Vega MD, [facility] CPT-4: 66456 12/04/2017 ([id number]) 04067 EST. PATIENT, LEVEL IV Diagnosis: Essential (primary) hypertension[ICD10: I10] Diagnosis: Cough[ICD10: R05] Diagnosis: Chronic atrial fibrillation[ICD10: I48.2] Yarely Vega MD, [facility] CPT-4: 35760 11/20/2017 ([id number]) 29006 EST. PATIENT, LEVEL III Diagnosis: Cough[ICD10: R05] Diagnosis: Acute upper respiratory infection, unspecified[ICD10: J06.9] Janet Vega MD, [facility] CPT-4: 96137 09/15/2017 [id number] EST. PATIENT, LEVEL III Diagnosis: Laceration without foreign body of right forearm, initial encounter[ICD10: S51.811A] Diagnosis: Other vitamin B12 deficiency anemias[ICD10: D51.8] Brianna Vega MD, [facility] CPT-4: 95440 09/07/2017 ([id number]) 75708 EST. PATIENT, LEVEL IV Diagnosis: Chronic atrial fibrillation[ICD10: I48.2] Diagnosis: Other allergic rhinitis[ICD10: J30.89] Diagnosis: Encounter for therapeutic drug level monitoring[ICD10: Z51.81] Yarely Vega MD, [facility] CPT-4: 59790 08/30/2017 ([id number]) 11077 EST. PATIENT, LEVEL IV Diagnosis: Atrophy of thyroid (acquired)[ICD10: E03.4] Diagnosis: Cough[ICD10: R05] Diagnosis: Laceration without foreign body of left forearm, initial encounter[ICD10: S51.812A] Diagnosis: Candidiasis of skin and nail[ICD10: B37.2] Diagnosis: Other vitamin B12 deficiency anemias[ICD10: D51.8] Diagnosis: Slow transit constipation[ICD10: K59.01] Yarely Vega MD, [facility] CPT-4: 85308 07/06/2017 [id number] EST. PATIENT, LEVEL III Diagnosis: Other vitamin B12 deficiency anemias[ICD10: D51.8] Diagnosis: Acute laryngopharyngitis[ICD10: J06.0] Diagnosis: Other allergic rhinitis[ICD10: J30.89] Brianna Vega MD, [facility] CPT- 4: 01445 06/20/2017 ([id number]) 41404 EST. PATIENT, LEVEL IV Diagnosis: Essential (primary) hypertension[ICD10: I10] Diagnosis: Chronic atrial fibrillation[ICD10: I48.2] Diagnosis: Atrophy of thyroid (acquired)[ICD10: E03.4] Diagnosis: 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 factor deficiency[ICD10: D51.0] Yarely Vega MD, [facility] CPT-4: 30633 05/25/2017 ([id number]) 10701 EST. 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 PATIENT, LEVEL IV Diagnosis: Type 2 diabetes mellitus without complications[ICD10: E11.9] Diagnosis: Essential (primary) hypertension[ICD10: I10] Diagnosis: Headache[ICD10: R51] Diagnosis: Atrophy of thyroid (acquired)[ICD10: E03.4] Diagnosis: Vitamin B12 deficiency anemia, unspecified[ICD10: D51.9] Yarely Vega MD, [facility] CPT-4: 40115 01/23/2017 78586 EST. PATIENT, LEVEL III Diagnosis: Low back pain[ICD10: M54.5] Diagnosis: Pain in thoracic spine[ICD10: M54.6] Brianna Vega MD, [facility] CPT- 4: 25245 11/02/2016 ([id number]) 39179 EST. PATIENT, LEVEL IV Diagnosis: Essential (primary) hypertension[ICD10: I10] Diagnosis: Other vitamin B12 deficiency anemias[ICD10: D51.8] Diagnosis: Generalized abdominal pain[ICD10: R10.84] Yarely Vega MD, [facility] CPT-4: 16719 09/29/2016 ([id number]) 47027 EST. PATIENT, LEVEL IV Diagnosis: Essential (primary) hypertension[ICD10: I10] Yarely Vega MD, [facility] CPT-4: 95083 07/26/2016 ([id number]) 38728 EST. PATIENT, LEVEL IV Diagnosis: Benign lipomatous neoplasm of skin and subcutaneous tissue of right leg[ICD10: D17.23] Diagnosis: Pain in right ankle and joints of right foot[ICD10: M25.571] Diagnosis: Encounter for immunization[ICD10: Z23] Diagnosis: Vitamin B12 deficiency anemia, unspecified[ICD10: D51.9] Yarely Vega MD, [facility] CPT-4: 82133 05/25/2016 19171 EST. PATIENT, LEVEL III Diagnosis: Other chest pain[ICD10: R07.89] Diagnosis: Other vitamin B12 deficiency anemias[ICD10: D51.8] Brianan Vega MD, [facility] CPT-4: 21398 02/25/2016 ([id number]) 92109 EST. 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 PATIENT, LEVEL III Diagnosis: Other vitamin B12 deficiency anemias[ICD10: D51.8] Diagnosis: Acute nasopharyngitis [common cold][ICD10: J00] Diagnosis: Other allergic rhinitis[ICD10: J30.89] Brianna Vega MD, [facility] CPT- 4: 95584 11/11/2015 ([id number]) 94404 EST. PATIENT, LEVEL IV Diagnosis: Essential tremor[ICD10: G25.0] Diagnosis: Chronic fatigue, unspecified[ICD10: R53.82] Diagnosis: Other hypersomnia[ICD10: G47.19] Diagnosis: Essential (primary) hypertension[ICD10: I10] Yarely Vega MD, [facility] CPT-4: 87490 10/12/2015 ([id number]) 16187 EST. PATIENT, LEVEL IV Diagnosis: Essential (primary) hypertension[ICD10: I10] Diagnosis: Chronic atrial fibrillation[ICD10: I48.2] Diagnosis: Abnormal levels of other serum enzymes[ICD10: R74.8] Diagnosis: Type 2 diabetes mellitus without complications[ICD10: E11.9] Diagnosis: Vitamin B12 deficiency anemia, unspecified[ICD10: D51.9] Yarely Vega MD, [facility] CPT-4: 22530 09/03/2015 ([id number]) 15495 EST. PATIENT, LEVEL III Diagnosis: Nausea[ICD10: R11.0] Diagnosis: Essential tremor[ICD10: G25.0] Diagnosis: Actinic keratosis[ICD10: L57.0] Yarely Vega MD, [facility] CPT-4: 22198 05/19/2015 ([id number] 32818 EST. PATIENT, LEVEL IV Diagnosis: Vitamin B12 deficiency anemia, unspecified[ICD10: D51.9] Diagnosis: Chronic atrial fibrillation[ICD10: I48.2] Diagnosis: Headache[ICD10: R51] Diagnosis: Chronic fatigue, unspecified[ICD10: R53.82] Diagnosis: Cervicalgia[ICD10: M54.2] Yarely Vega MD, [facility] CPT-4: 16270 05/12/2015 ([id number] 30986 EST. PATIENT, LEVEL IV Diagnosis: ESSENTIAL HYPERTENSION[ICD9: 401.9] Diagnosis: Afib[ICD9: 427.31] Diagnosis: Anxiety[ICD9: 300.00] Diagnosis: Insomnia[ICD9: 780.52] Yarely Vega MD, [facility] CPT-4: 10878 01/13/2015 ([id number]) OFFICE VISIT, NEW - LEVEL 4 Diagnosis: Hypothyroidism[ICD9: 244.9] Diagnosis: DIABETES TYPE II[ICD9: 250.00] Diagnosis: ESSENTIAL HYPERTENSION[ICD9: 401.9] Diagnosis: Afib[ICD9: 427.31] Diagnosis: Anxiety[ICD9: 300.00] Diagnosis: B12 deficiency[ICD9: 266.2] Janet Vega MD, [facility] CPT-4: 41961 12/16/2014 Plan of Care Planned Activity Notes Codes Status Date Appointment: Injection 07/04/2018 Patient Education: Patient Medication Summary Completed 07/04/2018 Appointment: Injection 06/20/2018 Patient Education: Patient Medication Summary Completed 06/20/2018 Appointment: Yarely [facility]ega [facility]el[facility] ([facility] 06/07/2018 Appointment: Injection 06/06/2018 Patient Education: Patient Medication Summary Completed 06/06/2018 Appointment: Yarely Vega WPtel: [address] [place], [place] [address] [place] (15 min) Moderate 05/31/2018 Appointment: Injection [...] flonase 05/03/2018 Appointment: [facility] [phone] [facility] [place] (15 min) Moderate 05/03/2018 Patient [...] intervention. 02/26/2018 Appointment: [facility] [phone] [facility] [place] (15 min) Moderate 02/26/2018 Patient Education: Patient Medication Summary Completed 02/26/2018 Care Plan: Referral Order SNOMED-CT : [id number] Pending 02/26/2018 Appointment: Injection 02/08/2018 Patient Education: Patient Medication Summary Completed 02/08/2018 Appointment: Injection 01/24/2018 Patient Education: Patient Medication Summary Completed 01/24/2018 Appointment: Injection 01/10/2018 Patient Education: Patient Medication Summary Completed 01/10/2018 Appointment: Injection 12/27/2017 Patient Education: Patient Medication Summary Completed 12/27/2017 Appointment: Yarely Vega WPtel: [phone] [facility] (15 min) Moderate 12/26/2017 Visit Plan: [id number]-tgozbtgu protonix-follow up with Dr Navarro as scheduled Cough-recent bronchitis-symptoms improved-call if symptoms do not completely resolve 12/12/2017 Appointment: Janet Fam WPtel: [phone] [phone] [place] (15 min) Moderate 12/12/2017 [...] medication. 12/04/2017 Appointment: Yarely Vega WPtel: [phone] [facility] (15 min) Moderate 12/04/2017 Patient Education: [...] Fatigue/malaise -Pt was advsied to ask the Cyber Systems Engineer the following: ask the heart doctor if [...] uncontrolled. 11/20/2017 Appointment: Yarely Vega WPtel: [facility] [place] (15 min) Moderate 11/20/2017 Patient [...] worse. 09/15/2017 Appointment: Janet Fam WPtel: [facility] [phone] [place] (15 min) Moderate 09/15/2017 Patient Education: Patient Medication Summary Completed 09/15/2017 Appointment: Yarely Vega WPtel: [facility]3 [facility] [place] (15 min) Moderate 09/11/2017 Visit Plan: Skin tear and Cellulitis - The patient was instructed in appropriate wound care. The patient was instructed to use the antibiotic ointment as per RX. The patient is to call for any change in symptoms, increase in size of the lesion, increase in pain, worsening redness, warmth, discharge. 09/07/2017 Appointment: Brianna Otoole WPtel: [phone] [facility] [place] (10 min) Simple 09/07/2017 Patient Education: Patient Medication Summary Completed 09/07/2017 Visit Plan: Lipoma - left ankle - talk to dr. barnes about possible surgery/laser for treatment of lipoma. Fatigue/malaise -Pt was advsied to ask the Cyber Systems Engineer the following: ask the heart doctor if there is an alternative to the amiodarone - you may be having side effects from the medication causing you to have pruritus (itching) and feeling like you have body aches, muscle aches, joint pain, fatigue, weight loss (decreased appetite), and pneumonia like symptoms. Congestion - claritin 10mg daily. 08/30/2017 Appointment: Yarely Vega WPtel: [phone] [facility] [place] (15 min) Moderate 08/30/2017 Patient Education: Patient Medication Summary Completed 08/30/2017 Appointment: Injection 08/24/2017 Appointment: Yarely Vega WPtel: [facility]5 [facility] (15 min) Moderate 08/24/2017 Patient Education: Patient [...] and mucinex 07/06/2017 Appointment: Yarely Vega WPtel: [facility]0 [facility] [place] (15 min) Moderate 07/06/2017 Patient [...] allergy spray. 06/20/2017 Appointment: Brianna Otoole WPtel: [facility] (15 min) Moderate 06/20/2017 Patient Education: [...] Appointment: Injection 06/05/2017 Appointment: Brianna Otoole WPtel: [facility]1 [facility] [facility] - Annual Wellness Visit 06/05/2017 [...] q 3 months or q 6 m [facility] based on previous levels of control. 05/25/2017 App[facility]ment[phone] [place] (15 min) Moderate 05/25/2017 Patient [...] wall. Fatigue - pt to discuss with Cyber Systems Engineer about the possibility of amiodarone causing her fatigue/malaise. 03/23/2017 Appointment: [facility]el[phone] [place] (15 min) [...] twice daily. 01/23/2017 Appointment: [facility]el[phone] (15 min) Moderate 01/23/2017 Patient Education: [...] improve. 11/02/2016 App[facility]ment[phone] (15 min) Moderate 11/02/2016 Patient [...] carafate 09/29/2016 Appointment: Yarely Vega WPtel: [phone] [facility] [place] (15 min) Moderate 09/29/2016 Patient Education: Patient Medication Summary Completed 09/29/2016 Appointment: Yarely Vega WPtel: [phone] [facility] [place] (15 min) Moderate 09/27/2016 Appointment: Yarely Vega WPtel: [phone] [facility] [place] (15 min) Moderate 09/20/2016 Appointment: Yarely Vega WPtel: [phone] [facility] [place] (15 min) Moderate 09/20/2016 Patient Education: [...] acute concerns. 07/26/2016 Appointment: Yarely Vega WPtel: [phone] [facility] [place] (15 min) Moderate 07/26/2016 Patient [...] surrogate. 05/30/2016 Appointment: [facility]el[phone] [facility] - Annual Wellness Visit 05/30/2016 [...] - take topamax at bedtime 05/25/2016 Appointment: Gary [facility]ly [facility]el[phone] (15 min) Moderate 05/25/2016 Patient Education: Patient Medication Summary Completed 05/25/2016 Patient Education: Obesity Completed 05/25/2016 Care Plan: Referral Order SNOMED-CT : [id number] Pending 05/25/2016 Appointment: Injection 05/10/2016 Patient Education: Patient Medication Summary Completed 05/10/2016 Appointment: Injection 04/26/2016 Patient Education: Patient Medication Summary Completed 04/26/2016 Appointment: Injection 04/11/2016 Patient Education: Patient Medication Summary Completed 04/11/2016 Appointment: Injection 03/31/2016 Patient Education: Patient Medication Summary Completed 03/31/2016 Patient Education: Patient Medication Summary Completed 03/22/2016 Care Plan: SCREENINGMAMMOGRAPHYDIGITAL LOINC : 64822-0 Pending 03/22/2016 Appointment: Injection 03/15/2016 Patient Education: [...] concerns. 02/25/2016 Appointment: [facility]el[phone] (15 min) Moderate 02/25/2016 [...] the patients recent sleep study - recommended [place] home patient eval of pt - nocturnal [...] the patients recent sleep study - recommended [place] home patient eval of pt - nocturnal [...] case with Faiza's daughter who had left [facility]. She is interested in looking at assisted living facilities for her mom as Faiza's family is for assisted living placement sooner rather than later. 10/12/2015 Appointment: Yarely Vega WPtel: [facility] (15 min) [...] Completed 08/17/2015 Appointment: Yarely [facility]ega [facility]Ptel[phone] (15 min) Moderate [...] current medications. 12/16/2014 Appointment: Janet Fam WPtel: [address] [place], [place] [phone] [place] (S) New Patient 12/16/2014 Patient Education: [...] case with Faiza's daughter who [facility]. She is interested in looking at [...] D[employer] paperwork for health care surrogate. . Okmbkd-mecepjimw-iozkhual protonix-follow up with Dr Navarro as scheduled Cough-recent bronchitis-symptoms improved-call if symptoms do not completely resolve . b12 injection decrease topamax to one [...] symptoms return, or with any concerns. . Atrial Fibrillation - pt on chronic [...] Fatigue/malaise -Pt was advsied to ask the Cyber Systems Engineer the following: ask the heart doctor if [...] Fatigue/malaise -Pt was advsied to ask the Cyber Systems Engineer the following: ask the heart doctor if [...] pt is not interested in surgical intervention. increase norvasc from 5mg daily to 10mg [...] is to call for acute concerns. . Medicare Exam - today we [...] spray in the nasal steroid allergy spray. CLARITIN FLONASE KENALOG INJECTION TODAY CALL IF [...] wall. Fatigue - pt to discuss with Cyber Systems Engineer about the possibility of amiodarone causing her [...] the patients recent sleep study - recommended [place] home patient eval of pt - nocturnal [...] the patients recent sleep study - recommended [place] home patient eval of pt - nocturnal oxygen study - will order - if positive oxygen concentrator with humidification. . Bronchitis - acute case of bronchitis [...]
--- OUTSIDE RECORDS SUMMARY | 2018-12-05 18:33 | XMS REPORT | CCD ---
Author Author [facility] Organization [facility] Address [address] [place] [address] Phone Care Team Providers Care Inspector Subassemblies Name Role Phone PP Unavailable CCM Unavailable Summary Purpose Interface Exchange Insurance Providers Payer name Policy type / Coverage type Covered democrat ID Effective Begin Date Effective End Date WPS Medicare Part B Medicare Part B [id number] Unknown Principal Life Insurance Medicare Part B [id number] Unknown [employer] in [place] Medicare Part B [id number] Unknown Family history Brother Diagnosis Age At Onset Heart Attack Unknown Mother Diagnosis Age At Onset Hypertension Unknown kidney disease Unknown Stroke Unknown Father Diagnosis Age At Onset Arthritis Unknown Social History Social History Element Codes Description Effective Dates Employment Unknown Retired worked at [employer] 11/20/2017 Marital status Unknown Single 12/16/[address]: 8892726 Former smoker 12/16/[address]: 012375167 Never drinks alcohol 12/16/2014 Allergies, Adverse Reactions, Alerts Substance Reaction Codes Entered Date Inactivated Date Status CODEINE RxNorm: 2670 05/25/2016 No Inactive Date Active ciprofloxacin RxNorm: 60525 12/16/2014 No Inactive Date Active MORPHINE SULFATE [...] Start Date Stop Date Status Fill Instructions betamethasone valerate 0.1 % topical ointment RxNorm: 583817 1 TOP BID 07/04/2018 07/13/2018 Active applying to skin under nose x 10 days betamethasone valerate 0.1 % topical ointment RxNorm: 922177 1 TOP BID 07/04/2018 07/03/2018 Inactive applying to skin under nose x 10 days cyanocobalamin (vit B-12) 1,000 mcg/mL injection solution RxNorm: 994257 Milliliter(s) Inj 07/04/2018 07/04/2018 Inactive Aricept 10 mg tablet RxNorm: 290907 Tablet(s) 1 Tablet(s) PO daily 06/25/2018 06/19/2019 Active hydrocodone 5 mg-acetaminophen 325 mg tablet RxNorm: 856242 1-2 Tablet(s) PO Q6 as needed for pain 06/20/2018 07/19/2018 Active Flonase Allergy Relief 50 mcg/actuation nasal spray,suspension RxNorm: 3815311 [place] 1 [place] NASAL BID 06/20/2018 10/17/2018 Active cyanocobalamin (vit B-12) 1,000 mcg/mL injection solution RxNorm: 611559 Milliliter(s) Inj 06/20/2018 06/20/2018 Inactive cyanocobalamin (vit B-12) 1,000 mcg/mL injection solution RxNorm: 541263 Milliliter(s) Inj 06/06/2018 06/06/2018 Inactive alprazolam 0.25 mg tablet RxNorm: 583066 1 Tablet(s) PO BID 05/25/2018 08/22/2018 Active hydrocodone 5 mg-acetaminophen 325 mg tablet RxNorm: 260533 1-2 Tablet(s) PO Q6 as needed for pain 05/24/2018 06/19/2018 Inactive cyanocobalamin (vit B-12) 1,000 mcg/mL injection solution RxNorm: 482298 Milliliter(s) Inj 05/24/2018 05/24/2018 Inactive cyanocobalamin (vit B-12) 1,000 mcg/mL injection solution RxNorm: 554203 Milliliter(s) Inj 05/09/2018 05/09/2018 Inactive Claritin 10 mg tablet RxNorm: 168745 TAKE 1 TABLET BY MOUTH ONCE DAILY 05/08/2018 05/02/2019 Active Generic For:CLARITIN 10MG 05/07/2018 9:13:47 AM cyanocobalamin (vit B-12) 1,000 mcg/mL injection solution RxNorm: 193331 INJECT ONE 1 ML EVERY TWO WEEKS 05/03/2018 04/03/2019 Active 05/03/2018 9:13:42 AM Mobic 15 mg tablet RxNorm: 072805 Tablet(s) 1 Tablet(s) PO daily 04/26/2018 04/20/2019 Active buspirone 15 mg tablet RxNorm: 571305 Tablet(s) TAKE 1 TABLET BY MOUTH TWICE DAILY 04/26/2018 04/20/2019 Active Generic For:BUSPAR 15MG 05/31/2017 9:19:20 AM Norvasc 5 mg tablet RxNorm: 760374 Tablet(s) 1 Tablet(s) PO daily 04/26/2018 04/20/2019 Active cyanocobalamin (vit B-12) 1,000 mcg/mL injection solution RxNorm: 716223 Milliliter(s) Inj 04/26/2018 04/26/2018 Inactive hydrocodone 5 mg-acetaminophen 325 mg tablet RxNorm: 000913 1-2 Tablet(s) PO Q6 as needed for pain 04/25/2018 05/23/2018 Inactive cyanocobalamin (vit B-12) 1,000 mcg/mL injection solution RxNorm: 725560 Milliliter(s) Inj 04/12/2018 04/12/2018 Inactive Topamax 25 mg tablet RxNorm: 329844 1 Tablet(s) PO BID 04/09/2018 05/02/2018 Inactive Generic For:TOPAMAX 25MG 12/06/2016 9:15:13 AM Zoloft 50 mg tablet RxNorm: 870807 TAKE 1 TABLET BY MOUTH ONCE DAILY 04/04/2018 12/29/2018 Active Generic For:ZOLOFT 50MG 04/04/2018 9:13:25 AM cyanocobalamin (vit B-12) 1,000 mcg/mL injection solution RxNorm: 960632 Milliliter(s) Inj 03/30/2018 03/30/2018 Inactive levothyroxine 125 mcg tablet RxNorm: 059620 TAKE 1 TABLET BY MOUTH EVERY DAY 03/26/2018 09/21/2018 Active Generic For:SYNTHROID 125MCG TAB 03/26/2018 9:15:59 AM liothyronine 5 mcg tablet RxNorm: 640579 TAKE 1 TABLET BY MOUTH TWICE DAILY 03/26/2018 09/21/2018 Active Generic For:CYTOMEL 5MCG 03/26/2018 9:15:54 AM hydrocodone 5 mg-acetaminophen 325 mg tablet RxNorm: 213416 1-2 Tablet(s) PO Q6 as needed for pain 03/19/2018 04/17/2018 Inactive cyanocobalamin (vit B-12) 1,000 mcg/mL injection solution RxNorm: 386771 Milliliter(s) Inj 03/16/2018 03/16/2018 Inactive Flonase Allergy Relief 50 mcg/actuation nasal spray,suspension RxNorm: 6091036 1 [place] NASAL BID 03/05/2018 06/19/2018 Inactive cyanocobalamin (vit B-12) 1,000 mcg/mL injection solution RxNorm: 044904 Milliliter(s) Inj 03/02/2018 03/02/2018 Inactive alprazolam 0.25 mg tablet RxNorm: 225098 1 Tablet(s) PO BID 02/28/2018 05/27/2018 Inactive cyanocobalamin (vit B-12) 1,000 mcg/mL injection solution RxNorm: 105840 Milliliter(s) Inj 02/08/2018 02/08/2018 Inactive cyanocobalamin (vit B-12) 1,000 mcg/mL injection solution RxNorm: 289921 Milliliter(s) Inj 01/24/2018 01/24/2018 Inactive albuterol sulfate 2.5 mg/3 mL (0.083 %) solution for nebulization RxNorm: 176506 3 Milliliter(s) INH Q6 PRN 01/24/2018 05/02/2018 Inactive Claritin 10 mg tablet RxNorm: 161872 1 Tablet(s) PO daily 01/15/2018 05/07/2018 Inactive cyanocobalamin (vit B-12) 1,000 mcg/mL injection solution RxNorm: 043387 Milliliter(s) Inj 01/10/2018 01/10/2018 Inactive hydrocodone 5 mg-acetaminophen 325 mg tablet RxNorm: 215513 1-2 Tablet(s) PO Q6 as needed for pain 01/09/2018 02/07/2018 Inactive cyanocobalamin (vit B-12) 1,000 mcg/mL injection solution RxNorm: 732330 Milliliter(s) Inj 12/27/2017 12/27/2017 Inactive cyanocobalamin (vit B-12) 1,000 mcg/mL injection solution RxNorm: 546000 1 Milliliter(s) Inj 12/12/2017 12/12/2017 Inactive Zofran ODT 4 mg disintegrating tablet RxNorm: 618827 1 Tablet(s) PO TID as needed 12/08/2017 12/09/2017 Inactive hydrocodone 2.5 mg-guaifenesin 200 mg/5 mL oral solution RxNorm: 547659 5 Milliliter(s) PO 12/04/2017 05/06/2018 Inactive doxycycline hyclate 100 mg capsule RxNorm: 7241550 1 Capsule(s) PO BID 12/04/2017 12/13/2017 Inactive cyanocobalamin (vit B-12) 1,000 mcg/mL injection solution RxNorm: 749517 Milliliter(s) Inj 12/01/2017 12/01/2017 Inactive Flonase Allergy Relief 50 mcg/actuation nasal spray,suspension RxNorm: 8284798 1 [place] NASAL BID 11/20/2017 2018 Inactive cyanocobalamin (vit B-12) 1,000 mcg/mL injection solution RxNorm: 531593 1 Milliliter(s) Inj 11/17/2017 11/17/2017 Inactive hydrocodone 5 mg-acetaminophen 325 mg tablet RxNorm: 066065 1-2 Tablet(s) PO Q6 as needed for pain 11/16/2017 12/15/2017 Inactive cyanocobalamin (vit B-12) 1,000 mcg/mL injection solution RxNorm: 519412 1 Milliliter(s) Inj 11/02/2017 11/02/2017 Inactive hydrocodone 5 mg-acetaminophen 325 mg tablet RxNorm: 951666 1-2 Tablet(s) PO Q6 as needed for pain 10/25/2017 11/15/2017 Inactive Claritin 10 mg tablet RxNorm: 290469 1 Tablet(s) PO daily 10/25/2017 11/19/2017 Inactive albuterol sulfate 2.5 mg/3 mL (0.083 %) solution for nebulization RxNorm: 842735 3 Milliliter(s) INH Q6 PRN 10/25/2017 01/23/2018 Inactive Claritin 10 mg tablet RxNorm: 289559 1 Tablet(s) PO daily 10/25/2017 10/24/2017 Inactive cyanocobalamin (vit B-12) 1,000 mcg/mL injection solution RxNorm: 007628 1 Milliliter(s) Inj 10/20/2017 10/20/2017 Inactive Zoloft 50 mg tablet RxNorm: 879325 TAKE 1 TABLET BY MOUTH ONCE DAILY 10/13/2017 04/03/2018 Inactive Generic For:ZOLOFT 50MG 10/13/2017 8:59:44 AM cyanocobalamin (vit B-12) 1,000 mcg/mL injection solution RxNorm: 476179 Milliliter(s) Inj 10/06/2017 10/06/2017 Inactive liothyronine 5 mcg tablet RxNorm: 968519 TAKE 1 TABLET BY MOUTH TWICE DAILY 10/03/2017 03/25/2018 Inactive Generic For:CYTOMEL 5MCG 10/03/2017 9:13:38 AM cyanocobalamin (vit B-12) 1,000 mcg/mL injection solution RxNorm: 678949 Milliliter(s) Inj 09/21/2017 09/21/2017 Inactive albuterol sulfate 2.5 mg/3 mL (0.083 %) solution for nebulization RxNorm: 650502 3 Milliliter(s) INH Q6 PRN 09/21/2017 10/24/2017 Inactive hydrocodone 5 mg-acetaminophen 325 mg tablet RxNorm: 516835 1-2 Tablet(s) PO Q6 as needed for pain 09/21/2017 10/20/2017 Inactive Kenalog 40 mg/mL suspension for injection RxNorm: 0416796 Milliliter(s) Inj 09/15/2017 09/15/2017 Inactive Keflex 500 mg capsule RxNorm: 081518 1 Capsule(s) PO TID 09/07/2017 09/16/2017 Inactive Please deliver to patient cyanocobalamin (vit B-12) 1,000 mcg/mL injection solution RxNorm: 241647 Milliliter(s) Inj 09/07/2017 09/07/2017 Inactive alprazolam 0.25 mg tablet RxNorm: 647601 1 Tablet(s) PO BID 09/06/2017 02/27/2018 Inactive Aricept 10 mg tablet RxNorm: 874009 1 Tablet(s) PO daily 09/06/2017 06/24/2018 Inactive hydrocodone 5 mg-acetaminophen 325 mg tablet RxNorm: 614035 1-2 Tablet(s) PO Q6 as needed for pain 08/24/2017 09/20/2017 Inactive cyanocobalamin (vit B-12) 1,000 mcg/mL injection solution RxNorm: 013551 Milliliter(s) Inj 08/24/2017 08/24/2017 Inactive Norvasc 5 mg tablet RxNorm: 226954 1 Tablet(s) PO daily 08/18/2017 04/25/2018 Inactive nystatin 100,000 unit/gram topical powder RxNorm: 866770 1 Gram(s) TOP QID 08/17/2017 08/26/2017 Inactive hydrocodone 5 mg-acetaminophen 325 mg tablet RxNorm: 706443 1-2 Tablet(s) PO Q6 as needed for pain 07/25/2017 08/23/2017 Inactive Tamiflu 75 mg capsule RxNorm: 397149 1 Capsule(s) PO BID 07/24/2017 12/11/2017 Inactive nystatin 100,000 unit/gram topical powder RxNorm: 593730 1 Gram(s) TOP QID 07/14/2017 07/22/2017 Inactive levothyroxine 125 mcg tablet RxNorm: 326921 Tablet(s) 1 Tablet(s) PO daily 07/10/2017 01/05/2018 Inactive nystatin 100,000 unit/gram topical powder RxNorm: 270903 1 Gram(s) TOP QID 07/06/2017 07/13/2017 Inactive cyanocobalamin (vit B-12) 1,000 mcg/mL injection solution RxNorm: 778751 Milliliter(s) Inj 07/06/2017 07/06/2017 Inactive Kenalog 40 mg/mL suspension for injection RxNorm: 7112156 1 Milliliter(s) Inj 06/20/2017 06/20/2017 Inactive doxycycline hyclate 100 mg capsule RxNorm: 9010112 1 Capsule(s) PO BID 06/20/2017 06/26/2017 Inactive cyanocobalamin (vit B-12) 1,000 mcg/mL injection solution RxNorm: 371765 Milliliter(s) Inj 06/20/2017 06/20/2017 Inactive Keflex 500 mg capsule RxNorm: 594469 1 Capsule(s) PO TID 06/14/2017 06/23/2017 Inactive Please deliver to patient Mobic 15 mg tablet RxNorm: 718912 1 Tablet(s) PO daily 06/14/2017 04/25/2018 Inactive cyanocobalamin (vit B-12) 1,000 mcg/mL injection solution RxNorm: 439566 Milliliter(s) Inj 06/05/2017 06/05/2017 Inactive buspirone 15 mg tablet RxNorm: 519951 TAKE 1 TABLET BY MOUTH TWICE DAILY 05/31/2017 04/25/2018 Inactive Generic For:BUSPAR 15MG 05/31/2017 9:19:20 AM cyanocobalamin (vit B-12) 1,000 mcg/mL injection solution RxNorm: 906965 Milliliter(s) Inj 05/25/2017 05/25/2017 Inactive hydrocodone 5 mg-acetaminophen 325 mg tablet RxNorm: 104817 1-2 Tablet(s) PO Q6 as needed for pain 05/25/2017 06/23/2017 Inactive amiodarone 200 mg tablet RxNorm: 165992 1/2 Tablet(s) PO daily 05/22/2017 No Stop Date Active cardiology decreased to 100mg daily cyanocobalamin (vit B-12) 1,000 mcg/mL injection solution RxNorm: 081987 Milliliter(s) Inj 05/16/2017 05/16/2017 Inactive Zofran ODT 4 mg disintegrating tablet RxNorm: 282208 1 Tablet(s) PO TID as needed 05/03/2017 05/04/2017 Inactive hydrocodone 5 mg-acetaminophen 325 mg tablet RxNorm: 221003 1-2 Tablet(s) PO Q6 as needed for pain 05/01/2017 05/05/2017 Inactive cyanocobalamin (vit B-12) 1,000 mcg/mL injection solution RxNorm: 561116 1 Milliliter(s) Inj 05/01/2017 05/01/2017 Inactive cyanocobalamin (vit B-12) 1,000 mcg/mL injection solution RxNorm: 506163 INJECT ONE 1 ML EVERY TWO WEEKS 04/26/2017 12/04/2018 Active 04/26/2017 9:08:52 AM Zoloft 50 mg tablet RxNorm: 971076 Tablet(s) TAKE 1 TABLET BY MOUTH DAILY 04/25/2017 10/12/2017 Inactive Generic For:ZOLOFT 50MG cyanocobalamin (vit B-12) 1,000 mcg/mL injection solution RxNorm: 052145 Milliliter(s) Inj 04/18/2017 04/18/2017 Inactive liothyronine 5 mcg tablet RxNorm: 695098 1 Tablet(s) PO BID 04/13/2017 10/02/2017 Inactive cyanocobalamin (vit B-12) 1,000 mcg/mL injection solution RxNorm: 038411 Milliliter(s) Inj 04/06/2017 04/06/2017 Inactive hydrocodone 5 mg-acetaminophen 325 mg tablet RxNorm: 334029 1-2 Tablet(s) PO Q6 as needed for pain 04/06/2017 04/10/2017 Inactive cyanocobalamin (vit B-12) 1,000 mcg/mL injection solution RxNorm: 261847 Milliliter(s) Inj 03/22/2017 03/22/2017 Inactive alprazolam 0.25 mg tablet RxNorm: 293466 1 Tablet(s) PO BID 03/17/2017 12/11/2017 Inactive alprazolam 0.25 mg tablet RxNorm: 158545 1 Tablet(s) PO BID 03/16/2017 09/05/2017 Inactive hydrocodone 5 mg-acetaminophen 325 mg tablet RxNorm: 092723 1-2 Tablet(s) PO Q6 as needed for pain 03/09/2017 03/13/2017 Inactive cyanocobalamin (vit B-12) 1,000 mcg/mL injection solution RxNorm: 885744 Milliliter(s) Inj 03/09/2017 03/09/2017 Inactive cyanocobalamin (vit B-12) 1,000 mcg/mL injection solution RxNorm: 057474 Milliliter(s) Inj 02/23/2017 02/23/2017 Inactive cyanocobalamin (vit B-12) 1,000 mcg/mL injection solution RxNorm: 824288 Milliliter(s) Inj 02/09/2017 02/09/2017 Inactive hydrocodone 5 mg-acetaminophen 325 mg tablet RxNorm: 740003 1-2 Tablet(s) PO Q6 as needed for pain 02/08/2017 02/12/2017 Inactive Topamax 25 mg tablet RxNorm: 153350 1 Tablet(s) PO BID 01/23/2017 05/22/2017 Inactive Generic For:TOPAMAX 25MG 12/06/2016 9:15:13 AM cyanocobalamin (vit B-12) 1,000 mcg/mL injection solution RxNorm: 767278 Milliliter(s) Inj 01/23/2017 01/23/2017 Inactive cyanocobalamin (vit B-12) 1,000 mcg/mL injection solution RxNorm: 885503 Milliliter(s) Inj 01/10/2017 01/10/2017 Inactive hydrocodone 5 mg-acetaminophen 325 mg tablet RxNorm: 267301 1-2 Tablet(s) PO Q6 as needed for pain 01/09/2017 01/13/2017 Inactive cyanocobalamin (vit B-12) 1,000 mcg/mL injection solution RxNorm: 670233 1 Milliliter(s) Inj 12/28/2016 12/28/2016 Inactive cyanocobalamin (vit B-12) 1,000 mcg/mL injection solution RxNorm: 683433 Milliliter(s) Inj 12/14/2016 12/14/2016 Inactive buspirone 15 mg tablet RxNorm: 212398 1 Tablet(s) PO BID 12/12/2016 05/30/2017 Inactive hydrocodone 5 mg-acetaminophen 325 mg tablet RxNorm: 426183 1-2 Tablet(s) PO Q6 as needed for pain 12/08/2016 12/12/2016 Inactive Topamax 25 mg tablet RxNorm: 470721 TAKE 1 TABLET BY MOUTH EVERY DAY AT BEDTIME 12/06/2016 01/22/2017 Inactive Generic For:TOPAMAX 25MG 12/06/2016 9:15:13 AM Lac-Hydrin Five 5 % lotion RxNorm: 759401 1 Gram(s) TOP daily 12/02/2016 05/02/2018 Inactive cyanocobalamin (vit B-12) 1,000 mcg/mL injection solution RxNorm: 337182 Milliliter(s) Inj 11/24/2016 11/24/2016 Inactive Ceftin 500 mg tablet RxNorm: 257564 1 Tablet(s) PO BID 11/11/2016 06/13/2017 Inactive Cipro 500 mg tablet RxNorm: 030415 1 Tablet(s) PO BID 11/11/2016 11/10/2016 Inactive Cipro 500 mg tablet RxNorm: 968342 1 Tablet(s) PO BID 11/11/2016 11/11/2016 Inactive cyanocobalamin (vit B-12) 1,000 mcg/mL injection solution RxNorm: 181276 1 Milliliter(s) Inj 11/07/2016 11/07/2016 Inactive hydrocodone 5 mg-acetaminophen 325 mg tablet RxNorm: 382413 1-2 Tablet(s) PO Q6 as needed for pain 11/02/2016 11/06/2016 Inactive cyanocobalamin (vit B-12) 1,000 mcg/mL injection solution RxNorm: 051648 Milliliter(s) Inj 10/24/2016 10/24/2016 Inactive levothyroxine 125 mcg tablet RxNorm: 272619 Tablet(s) 1 Tablet(s) PO daily 10/24/2016 04/21/2017 Inactive liothyronine 5 mcg tablet RxNorm: 414804 1 Tablet(s) PO BID 10/24/2016 04/12/2017 Inactive hydrocodone 5 mg-acetaminophen 325 mg tablet RxNorm: 549935 1-2 Tablet(s) PO Q6 as needed for pain 10/17/2016 10/21/2016 Inactive Keflex 500 mg capsule RxNorm: 632665 1 Capsule(s) PO TID 10/07/2016 10/06/2016 Inactive Keflex 500 mg capsule RxNorm: 858694 1 Capsule(s) PO TID 10/07/2016 10/16/2016 Inactive Please deliver to patient cyanocobalamin (vit B-12) 1,000 mcg/mL injection solution RxNorm: 768318 1 Milliliter(s) Inj 09/29/2016 09/29/2016 Inactive alprazolam 0.25 mg tablet RxNorm: 362195 1 Tablet(s) PO BID 09/20/2016 03/16/2017 Inactive Cozaar 100 mg tablet RxNorm: 587877 1 Tablet(s) PO daily 09/14/2016 No Stop Date Active metoprolol tartrate 50 mg tablet RxNorm: 213562 1/2 Tablet(s) PO BID 09/14/2016 12/12/2016 Inactive Zoloft 50 mg tablet RxNorm: 830518 Tablet(s) TAKE 1 TABLET BY MOUTH DAILY 09/14/2016 03/12/2017 Inactive Generic For:ZOLOFT 50MG liothyronine 5 mcg tablet RxNorm: 019417 1 Tablet(s) PO BID 09/14/2016 10/23/2016 Inactive Calmoseptine 0.44 %-20.6 % topical ointment RxNorm: 451293 1 Application TOP BID and as needed to sore on buttocks 09/07/2016 No Stop Date Active cyanocobalamin (vit B-12) 1,000 mcg/mL injection solution RxNorm: 190430 Milliliter(s) Inj 08/29/2016 08/29/2016 Inactive hydrocodone 5 mg-acetaminophen 325 mg tablet RxNorm: 009477 1-2 Tablet(s) PO Q6 as needed for pain 08/29/2016 10/16/2016 Inactive levothyroxine 125 mcg tablet RxNorm: 148333 1 Tablet(s) PO daily 08/25/2016 10/23/2016 Inactive Topamax 25 mg tablet RxNorm: 527777 TAKE 1 TABLET BY MOUTH EVERY DAY AT BEDTIME 08/17/2016 12/05/2016 Inactive Generic For:TOPAMAX 25MG 08/17/2016 2:14:37 PM hydrocodone 5 mg-acetaminophen 325 mg tablet RxNorm: 778345 1-2 Tablet(s) PO Q6 as needed for pain 08/11/2016 08/28/2016 Inactive hydrocodone 5 mg-acetaminophen 325 mg tablet RxNorm: 683249 1 -2 Tablet(s) PO Q6 as needed for pain 08/11/2016 08/18/2016 Inactive hydrocodone 5 mg-acetaminophen 325 mg tablet RxNorm: 724208 1 Tablet(s) PO Q6 as needed for pain 08/05/2016 08/10/2016 Inactive cyanocobalamin (vit B-12) 1,000 mcg/mL injection solution RxNorm: 211098 Milliliter(s) Inj 08/04/2016 08/04/2016 Inactive Norvasc 10 mg tablet RxNorm: 888453 1 Tablet(s) PO daily 07/26/2016 07/20/2017 Inactive alprazolam 0.25 mg tablet RxNorm: 528233 1 Tablet(s) PO QHS 07/21/2016 09/19/2016 Inactive Norvasc 5 mg tablet RxNorm: 258423 1 Tablet(s) PO daily 07/21/2016 07/25/2016 Inactive levothyroxine 125 mcg tablet RxNorm: 741862 1 Tablet(s) PO daily 07/21/2016 12/11/2017 Inactive cyanocobalamin (vit B-12) 1,000 mcg/mL injection solution RxNorm: 519089 Milliliter(s) Inj 07/21/2016 07/21/2016 Inactive Zoloft 50 mg tablet RxNorm: 117917 Tablet(s) TAKE 1 TABLET BY MOUTH DAILY 07/21/2016 09/13/2016 Inactive Generic For:ZOLOFT 50MG cyanocobalamin (vit B-12) 1,000 mcg/mL injection solution RxNorm: 077222 1 Milliliter(s) Inj 07/05/2016 07/05/2016 Inactive cyanocobalamin (vit B-12) 1,000 mcg/mL injection solution RxNorm: 012968 1 Milliliter(s) Inj 06/22/2016 06/22/2016 Inactive cyanocobalamin (vit B-12) 1,000 mcg/mL injection solution RxNorm: 708300 Milliliter(s) Inj 06/09/2016 06/09/2016 Inactive Aricept 10 mg tablet RxNorm: 288216 1 Tablet(s) PO daily 05/27/2016 05/21/2017 Inactive Mobic 15 mg tablet RxNorm: 817495 1 Tablet(s) PO daily 05/27/2016 05/21/2017 Inactive levothyroxine 125 mcg tablet RxNorm: 751035 1 Tablet(s) PO daily 05/25/2016 07/20/2016 Inactive cyanocobalamin (vit B-12) 1,000 mcg/mL injection solution RxNorm: 220744 1 Milliliter(s) Inj 05/25/2016 05/25/2016 Inactive doxycycline hyclate 100 mg capsule RxNorm: 3622914 1 Capsule(s) PO BID 05/16/2016 05/15/2016 Inactive doxycycline hyclate 100 mg capsule RxNorm: 0849088 1 Capsule(s) PO BID 05/16/2016 05/22/2016 Inactive cyanocobalamin (vit B-12) 1,000 mcg/mL injection solution RxNorm: 646500 Milliliter(s) Inj 05/10/2016 05/10/2016 Inactive cyanocobalamin (vit B-12) 1,000 mcg/mL injection solution RxNorm: 028120 Milliliter(s) Inj 04/26/2016 04/26/2016 Inactive Topamax 25 mg tablet RxNorm: 646610 1 Tablet(s) PO QPM 04/22/2016 08/16/2016 Inactive cyanocobalamin (vit B-12) 1,000 mcg/mL injection solution RxNorm: 508642 Milliliter(s) 1 Milliliter(s) Inj [id number] 04/11/2016 12/31/2017 Inactive liothyronine 5 mcg tablet RxNorm: 567798 1 Tablet(s) PO BID 04/11/2016 09/13/2016 Inactive cyanocobalamin (vit B-12) 1,000 mcg/mL injection solution RxNorm: 326723 Milliliter(s) Inj 04/11/2016 04/11/2016 Inactive cyanocobalamin (vit B-12) 1,000 mcg/mL injection solution RxNorm: 498120 Milliliter(s) Inj 03/31/2016 03/31/2016 Inactive cyanocobalamin (vit B-12) 1,000 mcg/mL injection solution RxNorm: 424113 1 Milliliter(s) Inj 03/15/2016 03/15/2016 Inactive levothyroxine 125 mcg tablet RxNorm: 022519 1 Tablet(s) PO daily 2016 03/03/2016 Inactive levothyroxine 125 mcg tablet RxNorm: 219587 1 Tablet(s) PO daily 2016 05/24/2016 Inactive cyanocobalamin (vit B-12) 1,000 mcg/mL injection solution RxNorm: 484453 Milliliter(s) Inj 02/25/2016 02/25/2016 Inactive cyanocobalamin (vit B-12) 1,000 mcg/mL injection solution RxNorm: 297766 1 Milliliter(s) Inj 02/02/2016 02/02/2016 Inactive sucralfate 1 gram tablet RxNorm: 051126 1 Tablet(s) PO QHS 01/25/2016 No Stop Date Active amiodarone 200 mg tablet RxNorm: 496737 1/2 Tablet(s) PO BID 01/25/2016 05/21/2017 Inactive cyanocobalamin (vit B-12) 1,000 mcg/mL injection solution RxNorm: 552868 Milliliter(s) Inj 01/18/2016 01/18/2016 Inactive cyanocobalamin (vit B-12) 1,000 mcg/mL injection solution RxNorm: 113311 Milliliter(s) Inj 12/29/2015 12/29/2015 Inactive Topamax 25 mg tablet RxNorm: 456825 1 Tablet(s) PO QPM 12/08/2015 04/05/2016 Inactive cyanocobalamin (vit B-12) 1,000 mcg/mL injection solution RxNorm: 734619 Milliliter(s) Inj 12/08/2015 12/08/2015 Inactive Bactrim DS 800 mg-160 mg tablet RxNorm: 969895 1 Tablet(s) PO BID 11/23/2015 11/22/2015 Inactive cyanocobalamin (vit B-12) 1,000 mcg/mL injection solution RxNorm: 503454 Milliliter(s) Inj 11/23/2015 11/23/2015 Inactive Bactrim DS 800 mg-160 mg tablet RxNorm: 571682 1 Tablet(s) PO BID 11/23/2015 11/29/2015 Inactive cyanocobalamin (vit B-12) 1,000 mcg/mL injection solution RxNorm: 698980 Milliliter(s) Inj 11/11/2015 11/11/2015 Inactive amoxicillin 500 mg capsule RxNorm: 512290 1 Capsule(s) PO TID 11/10/2015 11/19/2015 Inactive Zithromax Z-Henrique 250 mg tablet RxNorm: 059631 1 Tablet(s) PO UD 11/10/2015 01/24/2016 Inactive zpack x 1 amoxicillin 500 mg capsule RxNorm: 702580 1 Capsule(s) PO TID 11/10/2015 11/09/2015 Inactive cyanocobalamin (vit B-12) 1,000 mcg/mL injection solution RxNorm: 211192 1 Milliliter(s) Inj 10/29/2015 10/29/2015 Inactive Viper 3 capsule RxNorm: 1 Capsule(s) PO QAM , 2 Capsules at noon, 1 Capsule QHS 10/13/2015 No Stop Date Active potassium chloride ER 20 mEq tablet,extended release RxNorm: 899739 2 Tablet(s) PO daily at noon 10/13/2015 No Stop Date Active alprazolam 0.25 mg tablet RxNorm: 540393 1 Tablet(s) PO QHS 10/13/2015 07/20/2016 Inactive amiodarone 200 mg tablet RxNorm: 610203 1 Tablet(s) PO BID 10/13/2015 01/24/2016 Inactive cyanocobalamin (vit B-12) 1,000 mcg/mL injection solution RxNorm: 096919 1 Milliliter(s) Inj 10/12/2015 10/12/2015 Inactive Zofran 4 mg tablet RxNorm: 945469 1 Tablet(s) PO daily as needed 10/07/2015 05/24/2016 Inactive Zoloft 50 mg tablet RxNorm: 065322 TAKE 1 TABLET BY MOUTH DAILY 10/05/2015 05/01/2016 Inactive Generic For:ZOLOFT 50MG cyanocobalamin (vit B-12) 1,000 mcg/mL injection solution RxNorm: 066995 1 Milliliter(s) Inj 09/29/2015 09/29/2015 Inactive cyanocobalamin (vit B-12) 1,000 mcg/mL injection solution RxNorm: 180894 1 Milliliter(s) Inj 09/17/2015 09/17/2015 Inactive Norvasc 5 mg tablet RxNorm: 282393 1 Tablet(s) PO daily 09/17/2015 07/20/2016 Inactive liothyronine 5 mcg tablet RxNorm: 151614 1 Tablet(s) PO BID 09/17/2015 03/14/2016 Inactive Zoloft 50 mg tablet RxNorm: 951411 1 Tablet(s) PO daily 09/17/2015 10/04/2015 Inactive buspirone 15 mg tablet RxNorm: 120408 1 Tablet(s) PO BID 09/17/2015 09/10/2016 Inactive buspirone 15 mg tablet RxNorm: 367459 1 Tablet(s) PO BID 09/14/2015 09/16/2015 Inactive Topamax 25 mg tablet RxNorm: 721936 1 Tablet(s) PO QPM 09/03/2015 12/07/2015 Inactive cyanocobalamin (vit B-12) 1,000 mcg/mL injection solution RxNorm: 527019 1 Milliliter(s) Inj 09/03/2015 09/03/2015 Inactive cyanocobalamin (vit B-12) 1,000 mcg/mL injection solution RxNorm: 069975 Milliliter(s) Inj 08/17/2015 08/17/2015 Inactive cyanocobalamin (vit B-12) 1,000 mcg/mL injection solution RxNorm: 941700 Milliliter(s) Inj 08/06/2015 08/06/2015 Inactive levothyroxine 150 mcg tablet RxNorm: 922578 1 Tablet(s) PO daily 07/22/2015 03/03/2016 Inactive Aricept 10 mg tablet RxNorm: 751292 1 Tablet(s) PO daily 07/22/2015 05/26/2016 Inactive Mobic 15 mg tablet RxNorm: 972068 1 Tablet(s) PO daily 07/22/2015 05/26/2016 Inactive cyanocobalamin (vit B-12) 1,000 mcg/mL injection solution RxNorm: 774858 Milliliter(s) Inj 07/22/2015 07/22/2015 Inactive liothyronine 5 mcg tablet RxNorm: 574800 1 Tablet(s) PO BID 07/22/2015 09/16/2015 Inactive cyanocobalamin (vit B-12) 1,000 mcg/mL injection solution RxNorm: 705955 Milliliter(s) Inj 07/08/2015 07/08/2015 Inactive cyanocobalamin (vit B-12) 1,000 mcg/mL injection solution RxNorm: 861245 Milliliter(s) Inj 06/23/2015 06/23/2015 Inactive cyanocobalamin (vit B-12) 1,000 mcg/mL injection solution RxNorm: 535725 1 Milliliter(s) Inj 06/08/2015 06/08/2015 Inactive cyanocobalamin (vit B-12) 1,000 mcg/mL injection solution RxNorm: 149344 Milliliter(s) Inj 05/27/2015 05/27/2015 Inactive Aricept 10 mg tablet RxNorm: 990869 1 Tablet(s) PO daily 05/20/2015 07/21/2015 Inactive Zofran 4 mg tablet RxNorm: 152461 1 Tablet(s) PO daily as needed 05/20/2015 06/18/2015 Inactive alprazolam 0.25 mg tablet RxNorm: 380686 1 Tablet(s) PO BID 05/20/2015 10/12/2015 Inactive Mobic 15 mg tablet RxNorm: 098310 1 Tablet(s) PO daily 05/20/2015 07/21/2015 Inactive tramadol ER 100 mg tablet,extended release 24 hr RxNorm: 395120 1 Tablet(s) PO Q6 as needed 05/13/2015 No Stop Date Active cyanocobalamin (vit B-12) 1,000 mcg/mL injection solution RxNorm: 950353 1 Milliliter(s) Inj 05/12/2015 05/12/2015 Inactive Topamax 25 mg tablet RxNorm: 009094 1 Tablet(s) PO BID (start at one pill at bedtime x 1week then twice daily thereafter) 05/12/2015 09/02/2015 Inactive cyanocobalamin (vit B-12) 1,000 mcg/mL injection kit RxNorm: 162790 kit Inj 04/30/2015 04/30/2015 Inactive cyanocobalamin (vit B-12) 1,000 mcg/mL injection solution RxNorm: 475328 Milliliter(s) Inj 04/16/2015 04/16/2015 Inactive levothyroxine 150 mcg tablet RxNorm: 279180 1 Tablet(s) PO daily 04/08/2015 07/21/2015 Inactive cyanocobalamin (vit B-12) 1,000 mcg/mL injection solution RxNorm: 300846 Milliliter(s) 1 Milliliter(s) Inj [id number] 04/08/2015 04/10/2016 Inactive Cytomel 5 mcg tablet RxNorm: 259914 1 Tablet(s) PO BID 04/08/2015 10/12/2015 Inactive Cytomel 5 mcg tablet RxNorm: 007391 1 Tablet(s) PO BID 04/07/2015 04/07/2015 Inactive Cytomel 5 mcg tablet RxNorm: 661867 1 Tablet(s) PO BID 04/07/2015 04/06/2015 Inactive cyanocobalamin (vit B-12) 1,000 mcg/mL injection solution RxNorm: 593470 Milliliter(s) Inj 04/02/2015 04/02/2015 Inactive cyanocobalamin (vit B-12) 1,000 mcg/mL injection solution RxNorm: 100793 Milliliter(s) Inj 03/18/2015 03/18/2015 Inactive cyanocobalamin (vit B-12) 1,000 mcg/mL injection solution RxNorm: 329433 Milliliter(s) 1 Milliliter(s) Inj [id number] 03/18/2015 04/07/2015 Inactive cyanocobalamin (vit B-12) 1,000 mcg/mL injection solution RxNorm: 510606 1 Milliliter(s) Inj X6covrl 03/16/2015 03/17/2015 Inactive cyanocobalamin (vit B-12) 1,000 mcg/mL injection solution RxNorm: 917952 Milliliter(s) Inj 03/03/2015 03/03/2015 Inactive cyanocobalamin (vit B-12) 1,000 mcg/mL injection solution RxNorm: 887390 Milliliter(s) Inj 02/18/2015 02/18/2015 Inactive cyanocobalamin (vit B-12) 1,000 mcg/mL injection solution RxNorm: 885919 Milliliter(s) Inj 02/04/2015 02/04/2015 Inactive cyanocobalamin (vit B-12) 1,000 mcg/mL injection solution RxNorm: 200429 Milliliter(s) Inj 01/22/2015 01/22/2015 Inactive Lac-Hydrin Five 5 % lotion RxNorm: 560023 1 TOP daily 01/13/2015 03/13/2015 Inactive Lac-Hydrin Five 5 % lotion RxNorm: 573626 1 TOP daily 01/13/2015 01/12/2015 Inactive cyanocobalamin (vit B-12) 1,000 mcg/mL injection solution RxNorm: 612299 Milliliter(s) Inj 01/08/2015 01/08/2015 Inactive cyanocobalamin (vit B-12) 1,000 mcg/mL injection solution RxNorm: 740057 Milliliter(s) Inj 12/25/2014 12/25/2014 Inactive levothyroxine 150 mcg tablet RxNorm: 342075 1 Tablet(s) PO daily 12/24/2014 04/07/2015 Inactive tramadol 50 mg tablet RxNorm: 336237 1-2 Tablet(s) PO Q6 as needed 12/17/2014 05/12/2015 Inactive alprazolam 0.25 mg tablet RxNorm: 676308 1 Tablet(s) PO BID 12/17/2014 04/15/2015 Inactive Pradaxa 150 mg capsule RxNorm: 5581711 1 Capsule(s) PO BID 12/16/2014 No Stop Date Active metoprolol tartrate 50 mg tablet RxNorm: 459337 1/2 Tablet(s) PO BID 12/16/2014 09/13/2016 Inactive buspirone 15 mg tablet RxNorm: 890024 1 Tablet(s) PO BID 12/16/2014 09/13/2015 Inactive cyanocobalamin (vit B-12) 1,000 mcg/mL injection solution RxNorm: 186165 1 Milliliter(s) Inj X4ehavt 12/16/2014 03/15/2015 Inactive cyanocobalamin (vit B-12) 1,000 mcg/mL injection solution RxNorm: 606004 1 Milliliter(s) Inj C0kopbw 12/16/2014 12/15/2014 Inactive sucralfate 1 gram tablet RxNorm: 096448 Tablet(s) PO QID 12/16/2014 12/10/2015 Inactive cyanocobalamin (vit B-12) 1,000 mcg/mL injection solution RxNorm: 263058 Milliliter(s) Inj 12/10/2014 12/10/2014 Inactive cyanocobalamin (vit B-12) 1,000 mcg/mL injection solution RxNorm: 287250 Milliliter(s) Inj 11/26/2014 11/26/2014 Inactive Zoloft 50 mg tablet RxNorm: 792035 1 Tablet(s) PO daily 11/24/2014 06/21/2015 Inactive Zoloft 50 mg tablet RxNorm: 386838 1 Tablet(s) PO daily 11/24/2014 11/23/2014 Inactive cyanocobalamin (vit B-12) 1,000 mcg/mL injection kit RxNorm: 854630 Milliliter(s) Inj 11/12/2014 11/12/2014 Inactive cyanocobalamin (vit B-12) 1,000 mcg/mL injection solution RxNorm: 878138 Milliliter(s) Inj 10/28/2014 10/28/2014 Inactive [SAVINGS FOR NON-COVERED DRUGS -- [id number], PCN: [id number], Group: [id number], ID# [id number], Questions: . THIS IS NOT INSURANCE.] promethazine oral RxNorm: 8745 oral No Start Date Active digoxin 125 mcg tablet RxNorm: 585854 Tablet(s) PO every other day No Start Date Active furosemide 40 mg tablet RxNorm: 307257 1 Tablet(s) PO daily No Start Date Active Vitamin D3 5,000 unit tablet RxNorm: 308224 1 Tablet(s) PO daily No Start Date Active erythromycin 250 mg capsule,delayed release RxNorm: 014596 1 Capsule(s) PO AC No Start Date Active Protonix 40 mg tablet,delayed release RxNorm: 034427 1 Tablet(s) PO BID No Start Date Active Cozaar 100 mg tablet RxNorm: 178181 1 Tablet(s) PO daily No Start Date 09/13/2016 Inactive sucralfate 1 gram tablet RxNorm: 895208 Tablet(s) PO QID No Start Date 12/15/2014 Inactive amiodarone 200 mg tablet RxNorm: 510398 2 Tablet(s) PO daily No Start Date 10/13/2015 Inactive buspirone 15 mg tablet RxNorm: 208339 1 Tablet(s) PO daily No Start Date 12/15/2014 Inactive potassium chloride ER 20 mEq tablet,extended release RxNorm: 680060 1 Tablet(s) PO daily No Start Date 10/12/2015 Inactive Prilosec 40 mg capsule,delayed release RxNorm: 656774 1 Capsule(s) PO daily No Start Date 09/02/2015 Inactive Viper 3 capsule RxNorm: Capsule(s) PO No Start Date 10/12/2015 Inactive alprazolam 0.25 mg tablet RxNorm: 256179 Tablet(s) PO QHS No Start Date 12/16/2014 Inactive levothyroxine 125 mcg tablet RxNorm: 949304 1 Tablet(s) PO daily No Start Date 12/23/2014 Inactive liothyronine 5 mcg tablet RxNorm: 195828 1 Tablet(s) PO BID No Start Date 07/21/2015 Inactive Mobic 15 mg tablet RxNorm: 114532 Tablet(s) PO daily No Start Date 05/19/2015 Inactive Norvasc 5 mg tablet RxNorm: 152895 1 Tablet(s) PO daily No Start Date 09/16/2015 Inactive Zofran 4 mg tablet RxNorm: 153460 1 Tablet(s) PO daily as needed No Start Date 05/19/2015 Inactive Tamiflu 75 mg capsule RxNorm: 830098 1 Capsule(s) PO BID No Start Date 07/23/2017 Inactive tramadol 50 mg tablet RxNorm: 307341 1 Tablet(s) PO daily as needed No Start Date 12/16/2014 Inactive amiodarone 200 mg tablet RxNorm: 804857 1 Tablet(s) PO daily No Start Date 10/12/2015 Inactive Zofran ODT 4 mg disintegrating tablet RxNorm: 624519 1 Tablet(s) PO TID as needed No Start Date 05/02/2017 Inactive albuterol sulfate 2.5 mg/3 mL (0.083 %) solution for nebulization RxNorm: 001691 3 Milliliter(s) INH Q6 PRN No Start Date 09/20/2017 Inactive meclizine 25 mg tablet RxNorm: 182063 Tablet(s) PO as needed No Start Date 05/24/2016 Inactive Pradaxa 150 mg capsule RxNorm: 3237099 1 Capsule(s) PO daily No Start Date 12/15/2014 Inactive metoprolol tartrate 50 mg tablet RxNorm: 699259 1/2 Tablet(s) PO No Start Date 12/15/2014 Inactive Aricept 10 mg tablet RxNorm: 748923 Tablet(s) PO daily No Start Date 05/19/2015 Inactive Calmoseptine 0.44 %-20.6 % topical ointment RxNorm: 907427 1 Application TOP BID and as needed to sore on buttocks No Start Date 09/06/2016 Inactive Zithromax Z-Henrique 250 mg tablet RxNorm: 307444 1 Tablet(s) PO UD No Start Date 11/09/2015 Inactive zpack x 1 Medication Administered Medication Codes Instructions Start Date Status cyanocobalamin (vit B-12) 1,000 mcg/mL injection solution RxNorm: 971658 Milliliter 07/04/2018 No longer Active cyanocobalamin (vit B-12) 1,000 mcg/mL injection solution RxNorm: 140191 Milliliter 06/20/2018 No longer Active cyanocobalamin (vit B-12) 1,000 mcg/mL injection solution RxNorm: 546827 Milliliter 06/06/2018 No longer Active cyanocobalamin (vit B-12) 1,000 mcg/mL injection solution RxNorm: 745492 Milliliter 05/24/2018 No longer Active cyanocobalamin (vit B-12) 1,000 mcg/mL injection solution RxNorm: 433665 Milliliter 05/09/2018 No longer Active cyanocobalamin (vit B-12) 1,000 mcg/mL injection solution RxNorm: 640338 Milliliter 04/26/2018 No longer Active cyanocobalamin (vit B-12) 1,000 mcg/mL injection solution RxNorm: 531879 Milliliter 04/12/2018 No longer Active cyanocobalamin (vit B-12) 1,000 mcg/mL injection solution RxNorm: 580606 Milliliter 03/30/2018 No longer Active cyanocobalamin (vit B-12) 1,000 mcg/mL injection solution RxNorm: 414121 Milliliter 03/16/2018 No longer Active cyanocobalamin (vit B-12) 1,000 mcg/mL injection solution RxNorm: 135749 Milliliter 03/02/2018 No longer Active cyanocobalamin (vit B-12) 1,000 mcg/mL injection solution RxNorm: 458640 Milliliter 02/08/2018 No longer Active cyanocobalamin (vit B-12) 1,000 mcg/mL injection solution RxNorm: 904172 Milliliter 01/24/2018 No longer Active cyanocobalamin (vit B-12) 1,000 mcg/mL injection solution RxNorm: 825970 Milliliter 01/10/2018 No longer Active cyanocobalamin (vit B-12) 1,000 mcg/mL injection solution RxNorm: 621685 Milliliter 12/27/2017 No longer Active cyanocobalamin (vit B-12) 1,000 mcg/mL injection solution RxNorm: 193036 1Milliliter 12/12/2017 No longer Active cyanocobalamin (vit B-12) 1,000 mcg/mL injection solution RxNorm: 089659 Milliliter 12/01/2017 No longer Active cyanocobalamin (vit B-12) 1,000 mcg/mL injection solution RxNorm: 164899 1Milliliter 11/17/2017 No longer Active cyanocobalamin (vit B-12) 1,000 mcg/mL injection solution RxNorm: 755521 1Milliliter 11/02/2017 No longer Active cyanocobalamin (vit B-12) 1,000 mcg/mL injection solution RxNorm: 558127 1Milliliter 10/20/2017 No longer Active cyanocobalamin (vit B-12) 1,000 mcg/mL injection solution RxNorm: 129298 Milliliter 10/06/2017 No longer Active cyanocobalamin (vit B-12) 1,000 mcg/mL injection solution RxNorm: 603235 Milliliter 09/21/2017 No longer Active Kenalog 40 mg/mL suspension for injection RxNorm: 1537800 Milliliter 09/15/2017 No longer Active cyanocobalamin (vit B-12) 1,000 mcg/mL injection solution RxNorm: 693911 Milliliter 09/07/2017 No longer Active cyanocobalamin (vit B-12) 1,000 mcg/mL injection solution RxNorm: 881267 Milliliter 08/24/2017 No longer Active cyanocobalamin (vit B-12) 1,000 mcg/mL injection solution RxNorm: 866556 Milliliter 07/06/2017 No longer Active cyanocobalamin (vit B-12) 1,000 mcg/mL injection solution RxNorm: 162652 Milliliter 06/20/2017 No longer Active Kenalog 40 mg/mL suspension for injection RxNorm: 5336531 1Milliliter 06/20/2017 No longer Active cyanocobalamin (vit B-12) 1,000 mcg/mL injection solution RxNorm: 307267 Milliliter 06/05/2017 No longer Active cyanocobalamin (vit B-12) 1,000 mcg/mL injection solution RxNorm: 259963 Milliliter 05/25/2017 No longer Active cyanocobalamin (vit B-12) 1,000 mcg/mL injection solution RxNorm: 044397 Milliliter 05/16/2017 No longer Active cyanocobalamin (vit B-12) 1,000 mcg/mL injection solution RxNorm: 184050 1Milliliter 05/01/2017 No longer Active cyanocobalamin (vit B-12) 1,000 mcg/mL injection solution RxNorm: 706774 Milliliter 04/18/2017 No longer Active cyanocobalamin (vit B-12) 1,000 mcg/mL injection solution RxNorm: 532328 Milliliter 04/06/2017 No longer Active cyanocobalamin (vit B-12) 1,000 mcg/mL injection solution RxNorm: 131787 Milliliter 03/22/2017 No longer Active cyanocobalamin (vit B-12) 1,000 mcg/mL injection solution RxNorm: 498225 Milliliter 03/09/2017 No longer Active cyanocobalamin (vit B-12) 1,000 mcg/mL injection solution RxNorm: 774475 Milliliter 02/23/2017 No longer Active cyanocobalamin (vit B-12) 1,000 mcg/mL injection solution RxNorm: 818770 Milliliter 02/09/2017 No longer Active cyanocobalamin (vit B-12) 1,000 mcg/mL injection solution RxNorm: 613892 Milliliter 01/23/2017 No longer Active cyanocobalamin (vit B-12) 1,000 mcg/mL injection solution RxNorm: 971598 Milliliter 01/10/2017 No longer Active cyanocobalamin (vit B-12) 1,000 mcg/mL injection solution RxNorm: 391270 1Milliliter 12/28/2016 No longer Active cyanocobalamin (vit B-12) 1,000 mcg/mL injection solution RxNorm: 325199 Milliliter 12/14/2016 No longer Active cyanocobalamin (vit B-12) 1,000 mcg/mL injection solution RxNorm: 086087 Milliliter 11/24/2016 No longer Active cyanocobalamin (vit B-12) 1,000 mcg/mL injection solution RxNorm: 298047 1Milliliter 11/07/2016 No longer Active cyanocobalamin (vit B-12) 1,000 mcg/mL injection solution RxNorm: 997033 Milliliter 10/24/2016 No longer Active cyanocobalamin (vit B-12) 1,000 mcg/mL injection solution RxNorm: 297119 1Milliliter 09/29/2016 No longer Active cyanocobalamin (vit B-12) 1,000 mcg/mL injection solution RxNorm: 238845 Milliliter 08/29/2016 No longer Active cyanocobalamin (vit B-12) 1,000 mcg/mL injection solution RxNorm: 282528 Milliliter 08/04/2016 No longer Active cyanocobalamin (vit B-12) 1,000 mcg/mL injection solution RxNorm: 774909 Milliliter 07/21/2016 No longer Active cyanocobalamin (vit B-12) 1,000 mcg/mL injection solution RxNorm: 030793 1Milliliter 07/05/2016 No longer Active cyanocobalamin (vit B-12) 1,000 mcg/mL injection solution RxNorm: 845415 1Milliliter 06/22/2016 No longer Active cyanocobalamin (vit B-12) 1,000 mcg/mL injection solution RxNorm: 315601 Milliliter 06/09/2016 No longer Active cyanocobalamin (vit B-12) 1,000 mcg/mL injection solution RxNorm: 038280 1Milliliter 05/25/2016 No longer Active cyanocobalamin (vit B-12) 1,000 mcg/mL injection solution RxNorm: 001103 Milliliter 05/10/2016 No longer Active cyanocobalamin (vit B-12) 1,000 mcg/mL injection solution RxNorm: 027414 Milliliter 04/26/2016 No longer Active cyanocobalamin (vit B-12) 1,000 mcg/mL injection solution RxNorm: 936471 Milliliter 04/11/2016 No longer Active cyanocobalamin (vit B-12) 1,000 mcg/mL injection solution RxNorm: 952716 Milliliter 03/31/2016 No longer Active cyanocobalamin (vit B-12) 1,000 mcg/mL injection solution RxNorm: 545974 1Milliliter 03/15/2016 No longer Active cyanocobalamin (vit B-12) 1,000 mcg/mL injection solution RxNorm: 648804 Milliliter 02/25/2016 No longer Active cyanocobalamin (vit B-12) 1,000 mcg/mL injection solution RxNorm: 614851 1Milliliter 02/02/2016 No longer Active cyanocobalamin (vit B-12) 1,000 mcg/mL injection solution RxNorm: 301287 Milliliter 01/18/2016 No longer Active cyanocobalamin (vit B-12) 1,000 mcg/mL injection solution RxNorm: 119465 Milliliter 12/29/2015 No longer Active cyanocobalamin (vit B-12) 1,000 mcg/mL injection solution RxNorm: 838866 Milliliter 12/08/2015 No longer Active cyanocobalamin (vit B-12) 1,000 mcg/mL injection solution RxNorm: 217836 Milliliter 11/23/2015 No longer Active cyanocobalamin (vit B-12) 1,000 mcg/mL injection solution RxNorm: 261905 Milliliter 11/11/2015 No longer Active cyanocobalamin (vit B-12) 1,000 mcg/mL injection solution RxNorm: 306035 1Milliliter 10/29/2015 No longer Active cyanocobalamin (vit B-12) 1,000 mcg/mL injection solution RxNorm: 778363 1Milliliter 10/12/2015 No longer Active cyanocobalamin (vit B-12) 1,000 mcg/mL injection solution RxNorm: 489372 1Milliliter 09/29/2015 No longer Active cyanocobalamin (vit B-12) 1,000 mcg/mL injection solution RxNorm: 551967 1Milliliter 09/17/2015 No longer Active cyanocobalamin (vit B-12) 1,000 mcg/mL injection solution RxNorm: 909869 1Milliliter 09/03/2015 No longer Active cyanocobalamin (vit B-12) 1,000 mcg/mL injection solution RxNorm: 209186 Milliliter 08/17/2015 No longer Active cyanocobalamin (vit B-12) 1,000 mcg/mL injection solution RxNorm: 037779 Milliliter 08/06/2015 No longer Active cyanocobalamin (vit B-12) 1,000 mcg/mL injection solution RxNorm: 104684 Milliliter 07/22/2015 No longer Active cyanocobalamin (vit B-12) 1,000 mcg/mL injection solution RxNorm: 792304 Milliliter 07/08/2015 No longer Active cyanocobalamin (vit B-12) 1,000 mcg/mL injection solution RxNorm: 215165 Milliliter 06/23/2015 No longer Active cyanocobalamin (vit B-12) 1,000 mcg/mL injection solution RxNorm: 571876 1Milliliter 06/08/2015 No longer Active cyanocobalamin (vit B-12) 1,000 mcg/mL injection solution RxNorm: 996752 Milliliter 05/27/2015 No longer Active cyanocobalamin (vit B-12) 1,000 mcg/mL injection solution RxNorm: 741518 1Milliliter 05/12/2015 No longer Active cyanocobalamin (vit B-12) 1,000 mcg/mL injection kit RxNorm: 411729 kit 04/30/2015 No longer Active cyanocobalamin (vit B-12) 1,000 mcg/mL injection solution RxNorm: 041383 Milliliter 04/16/2015 No longer Active cyanocobalamin (vit B-12) 1,000 mcg/mL injection solution RxNorm: 431860 Milliliter 04/02/2015 No longer Active cyanocobalamin (vit B-12) 1,000 mcg/mL injection solution RxNorm: 681407 Milliliter 03/18/2015 No longer Active cyanocobalamin (vit B-12) 1,000 mcg/mL injection solution RxNorm: 784459 Milliliter 03/03/2015 No longer Active cyanocobalamin (vit B-12) 1,000 mcg/mL injection solution RxNorm: 781995 Milliliter 02/18/2015 No longer Active cyanocobalamin (vit B-12) 1,000 mcg/mL injection solution RxNorm: 618410 Milliliter 02/04/2015 No longer Active cyanocobalamin (vit B-12) 1,000 mcg/mL injection solution RxNorm: 490209 Milliliter 01/22/2015 No longer Active cyanocobalamin (vit B-12) 1,000 mcg/mL injection solution RxNorm: 768182 Milliliter 01/08/2015 No longer Active cyanocobalamin (vit B-12) 1,000 mcg/mL injection solution RxNorm: 763091 Milliliter 12/25/2014 No longer Active cyanocobalamin (vit B-12) 1,000 mcg/mL injection solution RxNorm: 840085 Milliliter 12/10/2014 No longer Active cyanocobalamin (vit B-12) 1,000 mcg/mL injection solution RxNorm: 662237 Milliliter 11/26/2014 No longer Active cyanocobalamin (vit B-12) 1,000 mcg/mL injection kit RxNorm: 288411 Milliliter 11/12/2014 No longer Active cyanocobalamin (vit B-12) 1,000 mcg/mL injection solution RxNorm: 425415 Milliliter 10/28/2014 No longer Active Immunizations Vaccine [...] (3rd IS) 3.20 uIU/mL 02/26/2018 Free T4 Zag931 FREE T4 0.99 ng/dL 02/26/2018 Cbc With [...] 28.5 pg 02/26/2018 Cbc With Differential Ord2 [place]% 10.3 % 02/26/2018 Cbc With Differential Ord2 [...] 1.80 K/ul 02/26/2018 Cbc With Differential Ord2 [place] ABS# 0.7 K/ul 02/26/2018 Cbc With Differential Ord2 Eos ABS# 0.2 K/ul 02/26/2018 Cbc With Differential Ord2 Baso ABS# 0.0 K/ul 02/26/2018 B12 Tge712 B12 889.00 pg/ml 02/26/2018 Digoxin Ord9 DIGOXIN 0.7 NG/ML 11/23/2017 Comp Metabolic Bwj242 NA 142 mEq/L 11/23/2017 Comp Metabolic Lvp268 K 4.9 mEq/L 11/23/2017 Comp Metabolic Mdv590 CL 112 mEq/L 11/23/2017 Comp Metabolic Kfj732 CO2 18.0 mEq/L 11/23/2017 Comp Metabolic Mhe566 ANION GAP 17 11/23/2017 Comp Metabolic Yru196 GLUCOSE 123 mg/dL 11/23/2017 Comp Metabolic Asl419 Creat 1.0 mg/dL 11/23/2017 Comp Metabolic Hin424 eGFR 59 ml/min/1.73m2 11/23/2017 Comp Metabolic Qxo054 BUN 24 mg/dL 11/23/2017 Comp Metabolic Zge566 B/C Ratio 25.0 Ratio 11/23/2017 Comp Metabolic Pvq122 CALCIUM 9.4 mg/dL 11/23/2017 Comp Metabolic Zhx611 ALK PHOS 56 U/L 11/23/2017 Comp Metabolic Blp533 AST(SGOT) 17 U/L 11/23/2017 Comp Metabolic Pzc965 ALT(SGPT) 16 U/L 11/23/2017 Comp Metabolic Rbx867 BILI T 0.7 mg/dL 11/23/2017 Comp Metabolic Hsg475 ALBUMIN 3.8 g/dL 11/23/2017 Comp Metabolic Xlu873 TPRO 6.2 g/dL 11/23/2017 Comp Metabolic Mwk575 GLOB 2.4 g/dL 11/23/2017 Comp Metabolic Cgj604 A/G Ratio 1.6 Ratio 11/23/2017 Comp Metabolic Huj850 Osmo 289 mOsmo 11/23/2017 Free T4 Dzm828 FREE T4 1.04 ng/dL 11/23/2017 %Hba1C Eyv059 % HbA1c 59579- 6 6.4 % 11/23/2017 %Hba1C Gxj724 Gluc Ave 137 mg/dL 11/23/2017 Lipid Ord30 CHOL 179 mg/dL 11/23/2017 Lipid Ord30 HDL 51.0 mg/dl 11/23/2017 Lipid Ord30 TRIG 134 mg/dL 11/23/2017 Lipid Ord30 LDL 101 mg/dL 11/23/2017 Lipid Ord30 C/HDL 3.5 Ratio 11/23/2017 Tsh Ord6 TSH (3rd IS) 1.00 uIU/mL 11/23/2017 Microalbumin Vzf912 MicroAlb <0.7 mg/dL 11/23/2017 Comp Metabolic Mgc398 NA 141 mEq/L 01/23/2017 Comp Metabolic Ygz173 K 4.5 mEq/L 01/23/2017 Comp Metabolic Twc539 CL 107 mEq/L 01/23/2017 Comp Metabolic Boe635 CO2 21.0 mEq/L 01/23/2017 Comp Metabolic Kpw977 ANION GAP 18 01/23/2017 Comp Metabolic Kya502 GLUCOSE 138 mg/dL 01/23/2017 Comp Metabolic Nhk962 Creat 1.0 mg/dL 01/23/2017 Comp Metabolic Imd129 eGFR 56 ml/min/1.73m2 01/23/2017 Comp Metabolic Hsk054 BUN 26 mg/dL 01/23/2017 Comp Metabolic Qtx704 B/C Ratio 25.7 Ratio 01/23/2017 Comp Metabolic Adw535 CALCIUM 9.0 mg/dL 01/23/2017 Comp Metabolic Ygt364 ALK PHOS 37 U/L 01/23/2017 Comp Metabolic Fkv442 AST(SGOT) 20 U/L 01/23/2017 Comp Metabolic Ejx236 ALT(SGPT) 25 U/L 01/23/2017 Comp Metabolic Vyf031 BILI T 0.9 mg/dL 01/23/2017 Comp Metabolic Zvd266 ALBUMIN 3.8 g/dL 01/23/2017 Comp Metabolic Psc211 TPRO 6.5 g/dL 01/23/2017 Comp Metabolic Yfu965 GLOB 2.7 g/dL 01/23/2017 Comp Metabolic Ipt139 A/G Ratio 1.4 Ratio 01/23/2017 Comp Metabolic Eal392 Osmo 288 mOsmo 01/23/2017 Free T4 Aen755 FREE T4 1.05 ng/dL 01/23/2017 %Hba1C Amq109 % HbA1c 99419- 6 6.1 % 01/23/2017 %Hba1C Oet992 Gluc Ave 128 mg/dL 01/23/2017 Tsh Ord6 hTSH II 1.68 uIU/mL 01/23/2017 Culture Urine [id number] URINE CULTURE SEE NOTES 11/10/2016 Culture Urine [id number] Continued Results 11/10/2016 Urine Culture Ucult Complete [...] Ord15 CALCIUM 9.3 mg/dL 09/29/2016 Free T4 Zzw066 FREE T4 0.99 ng/dL 09/07/2016 Cbc With [...] 30.0 pg 09/07/2016 Cbc With Differential Ord2 [place]% 9.8 % 09/07/2016 Cbc With Differential Ord2 [...] 1.75 K/ul 09/07/2016 Cbc With Differential Ord2 [place] ABS# 0.6 K/ul 09/07/2016 Cbc With Differential Ord2 Eos ABS# 0.1 K/ul 09/07/2016 Cbc With Differential Ord2 Baso ABS# 0.0 K/ul 09/07/2016 Tsh Ord6 hTSH II 1.41 uIU/mL 09/07/2016 Culture Urine [id number] URINE CULTURE SEE NOTES 06/27/2016 Lipid Ord30 CHOL 196 mg/dL 06/22/2016 Lipid Ord30 HDL 63.0 mg/dl 06/22/2016 Lipid Ord30 TRIG 154 mg/dL 06/22/2016 Lipid Ord30 LDL 102 mg/dL 06/22/2016 Lipid Ord30 C/HDL 3.1 Ratio 06/22/2016 Hepatic Ubp564 ALBUMIN 4.2 g/dL 06/22/2016 Hepatic Kpi601 TPRO 7.0 g/dL 06/22/2016 Hepatic Zyx785 GLOB 2.8 g/dL 06/22/2016 Hepatic Uze561 A/G Ratio 1.5 Ratio 06/22/2016 Hepatic Lnr230 ALK PHOS 54 U/L 06/22/2016 Hepatic Sdr272 ALT(SGPT) 30 U/L 06/22/2016 Hepatic Kfq052 AST(SGOT) 24 U/L 06/22/2016 Hepatic Jnc921 BILI T 1.1 mg/dL 06/22/2016 Hepatic Twx313 BILI D 0.2 mg/dL 06/22/2016 Hepatic Qtn709 BILI I 0.9 mg/dL 06/22/2016 Comp Metabolic Gln388 NA 139 mEq/L 06/14/2016 Comp Metabolic Ocy379 K 4.6 mEq/L 06/14/2016 Comp Metabolic Wmy394 CL 108 mEq/L 06/14/2016 Comp Metabolic Fyp483 CO2 22.0 mEq/L 06/14/2016 Comp Metabolic Jvf223 ANION GAP 14 06/14/2016 Comp Metabolic Hfh442 GLUCOSE 114 mg/dL 06/14/2016 Comp Metabolic Zwj752 Creat 1.2 mg/dL 06/14/2016 Comp Metabolic Sln619 eGFR 48 ml/min/1.73m2 06/14/2016 Comp Metabolic Njh147 BUN 24 mg/dL 06/14/2016 Comp Metabolic Ipm664 B/C Ratio 20.9 Ratio 06/14/2016 Comp Metabolic Dkv667 CALCIUM 9.9 mg/dL 06/14/2016 Comp Metabolic Geh609 ALK PHOS 47 U/L 06/14/2016 Comp Metabolic Gte203 AST(SGOT) 28 U/L 06/14/2016 Comp Metabolic Kpt462 ALT(SGPT) 32 U/L 06/14/2016 Comp Metabolic Bln158 BILI T 0.9 mg/dL 06/14/2016 Comp Metabolic Uip459 ALBUMIN 4.1 g/dL 06/14/2016 Comp Metabolic Cek384 TPRO 6.9 g/dL 06/14/2016 Comp Metabolic Izo259 GLOB 2.8 g/dL 06/14/2016 Comp Metabolic Efo757 A/G Ratio 1.5 Ratio 06/14/2016 Comp Metabolic Mzj020 Osmo 282 mOsmo 06/14/2016 Tsh Ord6 hTSH II 1.26 uIU/mL 06/14/2016 Free T4 Stv511 FREE T4 1.09 ng/dL 06/14/2016 Tsh Ord6 hTSH II 0.28 uIU/mL 02/02/2016 Digoxin Ord9 DIGOXIN 0.7 NG/ML 02/02/2016 Free T4 Fma037 FREE T4 1.23 ng/dL 02/02/2016 Hepatic Cel440 ALBUMIN 4.0 g/dL 02/02/2016 Hepatic Arw529 TPRO 7.0 g/dL 02/02/2016 Hepatic Sow355 GLOB 3.0 g/dL 02/02/2016 Hepatic Ubl688 A/G Ratio 1.3 Ratio 02/02/2016 Hepatic Pmw210 ALK PHOS 57 U/L 02/02/2016 Hepatic Ylk571 ALT(SGPT) 62 U/L 02/02/2016 Hepatic Ybb177 AST(SGOT) 54 U/L 02/02/2016 Hepatic Oyc901 BILI T 0.8 mg/dL 02/02/2016 Hepatic Zjs895 BILI D 0.2 mg/dL 02/02/2016 Hepatic Uic608 BILI I 0.6 mg/dL 02/02/2016 Urine Culture Ucult Preliminary No Growth Day 1 11/25/2015 Urine Culture Ucult Complete No Growth Day 2 11/25/2015 Hepatic Zay978 ALBUMIN 3.9 g/dL 11/11/2015 Hepatic Lri316 TPRO 7.0 g/dL 11/11/2015 Hepatic Bip080 GLOB 3.1 g/dL 11/11/2015 Hepatic Nnh601 A/G Ratio 1.3 Ratio 11/11/2015 Hepatic Hzc655 ALK PHOS 63 U/L 11/11/2015 Hepatic Lxj588 ALT(SGPT) 107 U/L 11/11/2015 Hepatic Xnm774 AST(SGOT) 101 U/L 11/11/2015 Hepatic Jcx199 BILI T 0.6 mg/dL 11/11/2015 Hepatic Qry057 BILI D 0.1 mg/dL 11/11/2015 Hepatic Xom367 BILI I 0.5 mg/dL 11/11/2015 Comp Metabolic Zzw650 NA 138 mEq/L 10/29/2015 Comp Metabolic Fsd012 K 5.0 mEq/L 10/29/2015 Comp Metabolic Keh464 CL 105 mEq/L 10/29/2015 Comp Metabolic Izh852 CO2 23.0 mEq/L 10/29/2015 Comp Metabolic Zqi418 ANION GAP 15 10/29/2015 Comp Metabolic Swt808 GLUCOSE 105 mg/dL 10/29/2015 Comp Metabolic Hyh384 Creat 1.0 mg/dL 10/29/2015 Comp Metabolic Hek542 eGFR 55 ml/min/1.73m2 10/29/2015 Comp Metabolic Nlt236 BUN 20 mg/dL 10/29/2015 Comp Metabolic Obg316 B/C Ratio 19.4 Ratio 10/29/2015 Comp Metabolic Lln815 CALCIUM 8.8 mg/dL 10/29/2015 Comp Metabolic Ijo411 ALK PHOS 56 U/L 10/29/2015 Comp Metabolic Arb887 AST(SGOT) 66 U/L 10/29/2015 Comp Metabolic Hhj569 ALT(SGPT) 78 U/L 10/29/2015 Comp Metabolic Fzu838 BILI T 0.7 mg/dL 10/29/2015 Comp Metabolic Whu265 ALBUMIN 3.6 g/dL 10/29/2015 Comp Metabolic Uom241 TPRO 6.6 g/dL 10/29/2015 Comp Metabolic Awd189 GLOB 3.0 g/dL 10/29/2015 Comp Metabolic Tri430 A/G Ratio 1.2 Ratio 10/29/2015 Comp Metabolic Gby062 Osmo 279 mOsmo 10/29/2015 Comp Metabolic Wsf031 NA 136 mEq/L 09/03/2015 Comp Metabolic Iap792 K 4.4 mEq/L 09/03/2015 Comp Metabolic Yts711 CL 103 mEq/L 09/03/2015 Comp Metabolic Thi370 CO2 24.0 mEq/L 09/03/2015 Comp Metabolic Rhj845 ANION GAP 13 09/03/2015 Comp Metabolic Lkr224 GLUCOSE 87 mg/dL 09/03/2015 Comp Metabolic Dmp796 Creat 1.1 mg/dL 09/03/2015 Comp Metabolic Avx372 eGFR 53 ml/min/1.73m2 09/03/2015 Comp Metabolic Tsn850 BUN 17 mg/dL 09/03/2015 Comp Metabolic Kjo539 B/C Ratio 16.2 Ratio 09/03/2015 Comp Metabolic Sbu321 CALCIUM 9.0 mg/dL 09/03/2015 Comp Metabolic Lzc581 ALK PHOS 55 U/L 09/03/2015 Comp Metabolic Xxa154 AST(SGOT) 83 U/L 09/03/2015 Comp Metabolic Unz266 ALT(SGPT) 126 U/L 09/03/2015 Comp Metabolic Eaa545 BILI T 0.9 mg/dL 09/03/2015 Comp Metabolic Yrc633 ALBUMIN 3.9 g/dL 09/03/2015 Comp Metabolic Jfy526 TPRO 6.8 g/dL 09/03/2015 Comp Metabolic Thp801 GLOB 2.9 g/dL 09/03/2015 Comp Metabolic Tok152 A/G Ratio 1.4 Ratio 09/03/2015 Comp Metabolic Jcs494 Osmo 273 mOsmo 09/03/2015 Total T3 Ord42 TT3 0.6 ng/ml 07/09/2015 Tsh Ord6 hTSH II 1.62 uIU/mL 07/09/2015 Total T3 Ord42 TT3 0.5 ng/ml 04/02/2015 Free T4 Lmr145 FREE T4 1.23 ng/dL 04/02/2015 Tsh Ord6 [...] 1995 Constitutional general appearance Overall: well developed 05/03/2018 [...] normal 11/20/2017 None Full Exam - General 1995 Ears/Nose/Throat lips/teeth/gingiva Overall: benign lips 11/20/2017 None [...] Procedure Codes Date THER/PROPH/DIAG INJ SC/IM CPT-4: 97876 07/04/2018 THER/PROPH/DIAG INJ SC/IM CPT-4: 95403 06/20/2018 THER/PROPH/DIAG INJ SC/IM CPT-4: 55768 06/06/2018 VITAMIN B12 INJECTION CPT- 4: J3420 06/06/2018 THER/PROPH/DIAG INJ SC/IM CPT-4: 96311 05/24/2018 THER/PROPH/DIAG INJ SC/IM CPT-4: 64231 05/09/2018 THER/PROPH/DIAG INJ SC/IM CPT-4: 78230 04/26/2018 VITAMIN B12 INJECTION CPT- 4: J3420 04/26/2018 THER/PROPH/DIAG INJ SC/IM CPT-4: 96685 04/12/2018 THER/PROPH/DIAG INJ SC/IM CPT-4: 17027 03/30/2018 THER/PROPH/DIAG INJ SC/IM CPT-4: 81025 03/16/2018 VITAMIN B12 INJECTION CPT- 4: J3420 03/16/2018 ADMIN INFLUENZA VIRUS VAC CPT-4: G0008 03/16/2018 FLU VACC PRSV FREE INC ANTIG Formatting Model/CDA Sections, Assigned to/Nga Ojeda CPT-4: 17842Uaccupg 03/16/2018 THER/PROPH/DIAG INJ SC/IM CPT-4: 73588 03/02/2018 THER/PROPH/DIAG INJ SC/IM CPT-4: 54869 02/08/2018 THER/PROPH/DIAG INJ SC/IM CPT-4: 93675 01/24/2018 THER/PROPH/DIAG INJ SC/IM CPT-4: 03269 01/10/2018 THER/PROPH/DIAG INJ SC/IM CPT-4: 70516 12/27/2017 VITAMIN B12 INJECTION CPT- 4: J3420 12/27/2017 THER/PROPH/DIAG INJ SC/IM CPT-4: 00470 12/12/2017 THER/PROPH/DIAG INJ SC/IM CPT-4: 70130 12/01/2017 VITAMIN B12 INJECTION CPT- 4: J3420 12/01/2017 THER/PROPH/DIAG INJ SC/IM CPT-4: 37092 11/17/2017 THER/PROPH/DIAG INJ SC/IM CPT-4: 48686 11/02/2017 THER/PROPH/DIAG INJ SC/IM CPT-4: 00380 10/20/2017 THER/PROPH/DIAG INJ SC/IM CPT-4: 94466 10/06/2017 THER/PROPH/DIAG INJ SC/IM CPT-4: 94440 09/21/2017 TRIAMCINOLONE ACET INJ NOS CPT-4: J3301 09/15/2017 THER/PROPH/DIAG INJ SC/IM CPT-4: 78392 09/07/2017 THER/PROPH/DIAG INJ SC/IM CPT-4: 13639 08/24/2017 THER/PROPH/DIAG INJ SC/IM CPT-4: 31940 07/06/2017 THER/PROPH/DIAG INJ SC/IM CPT-4: 84896 06/20/2017 TRIAMCINOLONE ACET INJ NOS CPT-4: J3301 06/20/2017 PPPS, SUBSEQ VISIT CPT- 4: G0439 06/05/2017 THER/PROPH/DIAG INJ SC/IM CPT-4: 94997 06/05/2017 THER/PROPH/DIAG INJ SC/IM CPT-4: 80618 05/25/2017 VITAMIN B12 INJECTION CPT- 4: J3420 05/25/2017 THER/PROPH/DIAG INJ SC/IM CPT-4: 78402 05/16/2017 THER/PROPH/DIAG INJ SC/IM CPT-4: 70329 05/01/2017 THER/PROPH/DIAG INJ SC/IM CPT-4: 98022 04/18/2017 THER/PROPH/DIAG INJ SC/IM CPT-4: 47059 04/06/2017 ADMIN INFLUENZA VIRUS VAC CPT-4: G0008 03/22/2017 FLU VACC PRSV FREE INC ANTIG CPT-4: 83542 03/22/2017 THER/PROPH/DIAG INJ SC/IM CPT-4: 85346 03/09/2017 THER/PROPH/DIAG INJ SC/IM CPT-4: 75530 02/23/2017 THER/PROPH/DIAG INJ SC/IM CPT-4: 28816 02/09/2017 THER/PROPH/DIAG INJ SC/IM CPT-4: 47706 01/23/2017 THER/PROPH/DIAG INJ SC/IM CPT-4: 86876 01/10/2017 THER/PROPH/DIAG INJ SC/IM CPT-4: 15503 12/28/2016 THER/PROPH/DIAG INJ SC/IM CPT-4: 89240 12/14/2016 THER/PROPH/DIAG INJ SC/IM CPT-4: 72089 11/24/2016 URINALYSIS NONAUTO W/O SCOPE CPT-4: 64371 11/07/2016 THER/PROPH/DIAG INJ SC/IM CPT-4: 73607 11/07/2016 THER/PROPH/DIAG INJ SC/IM CPT-4: 02592 10/24/2016 THER/PROPH/DIAG INJ SC/IM CPT-4: 31169 09/29/2016 THER/PROPH/DIAG INJ SC/IM CPT-4: 53218 08/29/2016 THER/PROPH/DIAG INJ SC/IM CPT-4: 34305 08/04/2016 THER/PROPH/DIAG INJ SC/IM CPT-4: 95336 07/21/2016 THER/PROPH/DIAG INJ SC/IM CPT-4: 09957 07/05/2016 THER/PROPH/DIAG INJ SC/IM CPT-4: 21225 06/22/2016 URINALYSIS NONAUTO W/O SCOPE CPT-4: 11782 06/22/2016 THER/PROPH/DIAG INJ SC/IM CPT-4: 65636 06/09/2016 PPPS, SUBSEQ VISIT CPT- 4: G0439 05/30/2016 ADMIN PNEUMOCOCCAL VACCINE SNOMED CT: 19873048 CPT-4: G0009 05/25/2016 Pneumococcal Polysaccharide Vaccine, 23-Valent, Ad CPT-4: 92851 05/25/2016 THER/PROPH/DIAG INJ SC/IM CPT-4: 79368 05/25/2016 THER/PROPH/DIAG INJ SC/IM CPT-4: 48538 05/10/2016 TRIAMCINOLONE ACET INJ NOS CPT-4: J3301 04/26/2016 VITAMIN B12 INJECTION CPT- 4: J3420 04/26/2016 THER/PROPH/DIAG INJ SC/IM CPT-4: 31291 04/11/2016 THER/PROPH/DIAG INJ SC/IM CPT-4: 76640 03/31/2016 ADMIN INFLUENZA VIRUS VAC CPT-4: G0008 03/15/2016 FLU VACC 4 STEPHANIE [address] YRS PLUS IM SNOMED CT: [id number] CPT-4: 77232 03/15/2016 THER/PROPH/DIAG INJ SC/IM CPT-4: 71825 02/25/2016 THER/PROPH/DIAG INJ SC/IM CPT-4: 35414 02/02/2016 THER/PROPH/DIAG INJ SC/IM CPT-4: 74468 01/18/2016 VITAMIN B12 INJECTION CPT- 4: J3420 12/29/2015 THER/PROPH/DIAG INJ SC/IM CPT-4: 52283 12/29/2015 THER/PROPH/DIAG INJ SC/IM CPT-4: 30061 12/08/2015 THER/PROPH/DIAG INJ SC/IM CPT-4: 39264 11/23/2015 URINALYSIS NONAUTO W/O SCOPE CPT-4: 26595 11/23/2015 THER/PROPH/DIAG INJ SC/IM CPT-4: 47776 11/11/2015 THER/PROPH/DIAG INJ SC/IM CPT-4: 74182 10/29/2015 THER/PROPH/DIAG INJ SC/IM CPT-4: 18991 10/12/2015 VITAMIN B12 INJECTION CPT- 4: J3420 10/12/2015 THER/PROPH/DIAG INJ SC/IM CPT-4: 98559 09/29/2015 THER/PROPH/DIAG INJ SC/IM CPT-4: 27310 09/17/2015 THER/PROPH/DIAG INJ SC/IM CPT-4: 34232 09/03/2015 THER/PROPH/DIAG INJ SC/IM CPT-4: 72595 08/17/2015 THER/PROPH/DIAG INJ SC/IM CPT-4: 07252 08/06/2015 THER/PROPH/DIAG INJ SC/IM CPT-4: 05955 07/22/2015 THER/PROPH/DIAG INJ SC/IM CPT-4: 64874 07/08/2015 THER/PROPH/DIAG INJ SC/IM CPT-4: 23154 06/23/2015 THER/PROPH/DIAG INJ SC/IM CPT-4: 02472 06/08/2015 THER/PROPH/DIAG INJ SC/IM CPT-4: 06207 05/27/2015 DESTRUCT PREMALG LESION CPT-4: 10509 05/19/2015 DESTRUCT PREMALG LES 2-14 CPT-4: 77083 05/19/2015 THER/PROPH/DIAG INJ SC/IM CPT-4: 87511 05/12/2015 VITAMIN B12 INJECTION CPT- 4: J3420 05/12/2015 THER/PROPH/DIAG INJ SC/IM CPT-4: 64506 04/30/2015 VITAMIN B12 INJECTION CPT- 4: J3420 04/30/2015 THER/PROPH/DIAG INJ SC/IM CPT-4: 59154 04/16/2015 THER/PROPH/DIAG INJ SC/IM CPT-4: 90029 04/02/2015 VITAMIN B12 INJECTION CPT- 4: J3420 04/02/2015 THER/PROPH/DIAG INJ SC/IM CPT-4: 80990 03/18/2015 THER/PROPH/DIAG INJ SC/IM CPT-4: 95583 03/03/2015 THER/PROPH/DIAG INJ SC/IM CPT-4: 37201 02/18/2015 THER/PROPH/DIAG INJ SC/IM CPT-4: 50195 02/04/2015 VITAMIN B12 INJECTION CPT- 4: J3420 02/04/2015 THER/PROPH/DIAG INJ SC/IM CPT-4: 65640 01/22/2015 THER/PROPH/DIAG INJ SC/IM CPT-4: 07704 01/08/2015 VITAMIN B12 INJECTION CPT- 4: J3420 01/08/2015 THER/PROPH/DIAG INJ SC/IM CPT-4: 94130 12/25/2014 VITAMIN B12 INJECTION CPT- 4: J3420 12/25/2014 THER/PROPH/DIAG INJ SC/IM CPT-4: 67652 12/10/2014 VITAMIN B12 INJECTION CPT- 4: J3420 12/10/2014 THER/PROPH/DIAG INJ SC/IM CPT-4: 23054 11/26/2014 VITAMIN B12 INJECTION CPT- 4: J3420 11/26/2014 THER/PROPH/DIAG INJ SC/IM CPT-4: 83730 11/12/2014 VITAMIN B12 INJECTION CPT- 4: J3420 11/12/2014 THER/PROPH/DIAG INJ SC/IM CPT-4: 44371 10/28/2014 Vital Signs Date Vital 05/03/2018 Blood Pressure 1: 140/70 Code: 8480-6 BMI: 26.0 Code: 37733-7 Heart Rate 1: 70 bpm Height: 5'6" SpO2: 94% Weight: 161 lbs 04/26/2018 Height: 5'6" 02/26/2018 Blood Pressure 1: 130/72 Code: 8480-6 BMI: 27.9 Code: 17818-9 Heart Rate 1: 72 bpm Height: 5'6" SpO2: 93% Weight: 173 lbs 12/12/2017 Blood Pressure 1: 126/74 Code: 8480-6 BMI: 27.4 Code: 66518-2 Heart Rate 1: 83 bpm Height: 5'6" SpO2: 98% Weight: 170 lbs 12/04/2017 Blood Pressure 1: 104/68 Code: 8480-6 BMI: 28.2 Code: 36287-9 Heart Rate 1: 85 bpm Height: 5'6" SpO2: 95% Weight: 175 lbs 11/20/2017 Blood Pressure 1: 130/68 Code: 8480-6 BMI: 28.4 Code: 05567-8 Heart Rate 1: 80 bpm Height: 5'6" SpO2: 99% Weight: 176 lbs 11/02/2017 Height: 5'6" 09/15/2017 Blood Pressure 1: 134/74 Code: 8480-6 BMI: 28.4 Code: 59745-9 Heart Rate 1: 88 bpm Height: 5'6" SpO2: 98% Weight: 176 lbs 09/07/2017 Blood Pressure 1: 124/64 Code: 8480-6 Heart Rate 1: 90 bpm Height: SpO2: 97% Weight: 08/30/2017 Blood Pressure 1: 140/76 Code: 8480-6 BMI: 28.4 Code: 56405-2 Heart Rate 1: 90 bpm Height: 5'6" SpO2: 94% Weight: 176 lbs 07/06/2017 Blood Pressure 1: 132/66 Code: 8480-6 BMI: 29.4 Code: 61738-6 Heart Rate 1: 85 bpm Height: 5'6" SpO2: 97% Weight: 182 lbs 06/20/2017 Blood Pressure 1: 134/86 Code: 8480-6 Heart Rate 1: 90 bpm Height: SpO2: 98% Weight: 06/05/2017 BMI: 29.1 Code: 84033-1 Height: 5'6" Weight: 180 lbs 05/25/2017 Blood Pressure 1: 126/76 Code: 8480-6 BMI: 29.1 Code: 26385-7 Heart Rate 1: 77 bpm Height: 5'6" SpO2: 97% Weight: 180 lbs 03/23/2017 Blood Pressure 1: 142/84 Code: 8480-6 BMI: 29.1 Code: 66323-2 Heart Rate 1: 91 bpm Height: 5'6" SpO2: 97% Weight: 180 lbs 01/23/2017 Blood Pressure 1: 150/90 Code: 8480-6 BMI: 29.9 Code: 42261-2 Heart Rate 1: 81 bpm Height: 5'6" SpO2: 97% Weight: 185 lbs 11/02/2016 Blood Pressure 1: 148/78 Code: 8480-6 BMI: 29.7 Code: 58748-0 Heart Rate 1: 87 bpm Height: 5'6" SpO2: 97% Weight: 184 lbs 09/29/2016 Blood Pressure 1: 128/78 Code: 8480-6 BMI: 29.7 Code: 29990-9 Heart Rate 1: 78 bpm Height: 5'6" SpO2: 98% Weight: 184 lbs 07/26/2016 Blood Pressure 1: 138/72 Code: 8480-6 BMI: 30.0 Code: 13689-7 Heart Rate 1: 85 bpm Height: 5'6" SpO2: 97% Weight: 186 lbs 05/30/2016 Blood Pressure 1: 132/76 Code: 8480-6 BMI: 30.0 Code: 02956-7 Heart Rate 1: 80 bpm Height: 5'6" SpO2: 98% Waist Measure (cm): 99 cm Weight: 186 lbs 05/25/2016 Blood Pressure 1: 132/76 Code: 8480-6 BMI: 30.0 Code: 41151-8 Heart Rate 1: 80 bpm Height: 5'6" SpO2: 96% Weight: 186 lbs 02/25/2016 Blood Pressure 1: 110/64 Code: 8480-6 Heart Rate 1: 82 bpm Height: SpO2: 96% Weight: 01/25/2016 Blood Pressure 1: 118/70 Code: 8480-6 BMI: 30.0 Code: 39195-0 Heart Rate 1: 78 bpm Height: 5'6" SpO2: 97% Weight: 186 lbs 11/11/2015 Blood Pressure 1: 128/82 Code: 8480-6 BMI: 29.2 Code: 95414-5 Heart Rate 1: 86 bpm Height: 5'6" SpO2: 96% Temperature: 36.4 (C) / 97.6 (F) Weight: 181 lbs 10/12/2015 Blood Pressure 1: 118/70 Code: 8480-6 BMI: 29.2 Code: 79816-1 Heart Rate 1: 81 bpm Height: 5'6" SpO2: 95% Weight: 181 lbs 09/03/2015 Blood Pressure 1: 138/78 Code: 8480-6 BMI: 29.9 Code: 58597-4 Heart Rate 1: 88 bpm Height: 5'6" SpO2: 97% Weight: 185 lbs 05/19/2015 Blood Pressure 1: 146/78 Code: 8480-6 BMI: 30.0 Code: 51803-6 Heart Rate 1: 66 bpm Height: 5'6" SpO2: 97% Weight: 186 lbs 05/12/2015 Blood Pressure 1: 120/70 Code: 8480-6 BMI: 29.9 Code: 48201-5 Heart Rate 1: 89 bpm Height: 5'6" SpO2: 95% Weight: 185 lbs 01/13/2015 Blood Pressure 1: 140/90 Code: 8480-6 BMI: 30.3 Code: 19445-1 Heart Rate 1: 84 bpm Height: 5'6" SpO2: 95% Weight: 188 lbs 12/16/2014 Blood Pressure 1: 140/82 Code: 8480-6 BMI: 29.5 Code: 86652-2 Heart Rate 1: 86 bpm Height: 5'6" [...] data Encounters Encounter Performer Location Codes Date ([id number]) [id number] EST. PATIENT, LEVEL IV Diagnosis: Essential (primary) hypertension[ICD10: I10] Diagnosis: Type 2 diabetes mellitus without complications[ICD10: E11.9] Yarely Vega MD, [facility] CPT-4: 11410 05/03/2018 ([id number]) 29987 EST. PATIENT, LEVEL III Diagnosis: Pain in left shoulder[ICD10: M25.512] Diagnosis: Pain in right shoulder[ICD10: M25.511] Yarely Vega MD, [facility] CPT-4: 79527 02/26/2018 ([id number]) 81069 EST. PATIENT, LEVEL III Diagnosis: Nausea[ICD10: R11.0] Diagnosis: Cough[ICD10: R05] Diagnosis: 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 factor deficiency[ICD10: D51.0] Janet Vega MD, [facility] CPT-4: 66288 12/12/2017 ([id number]) 71071 EST. PATIENT, LEVEL IV Diagnosis: Acute bronchitis due to Hemophilus influenzae[ICD10: J20.1] Diagnosis: Cough[ICD10: R05] Yarely Vega MD, [facility] CPT-4: 97327 12/04/2017 [id number] EST. PATIENT, LEVEL IV Diagnosis: Essential (primary) hypertension[ICD10: I10] Diagnosis: Cough[ICD10: R05] Diagnosis: Chronic atrial fibrillation[ICD10: I48.2] Yarely Vega MD, [facility] CPT-4: 91269 11/20/2017 ([id number]) 05634 EST. PATIENT, LEVEL III Diagnosis: Cough[ICD10: R05] Diagnosis: Acute upper respiratory infection, unspecified[ICD10: J06.9] Janet Vega MD, [facility] CPT-4: 32238 09/15/2017 [id number] EST. PATIENT, LEVEL III Diagnosis: Laceration without foreign body of right forearm, initial encounter[ICD10: S51.811A] Diagnosis: Other vitamin B12 deficiency anemias[ICD10: D51.8] Brianna Vega MD, [facility] CPT-4: 89933 09/07/2017 ([id number]) 18575 EST. PATIENT, LEVEL IV Diagnosis: Chronic atrial fibrillation[ICD10: I48.2] Diagnosis: Other allergic rhinitis[ICD10: J30.89] Diagnosis: Encounter for therapeutic drug level monitoring[ICD10: Z51.81] Yarely Vega MD, [facility] CPT-4: 03295 08/30/2017 ([id number]) 30893 EST. PATIENT, LEVEL IV Diagnosis: Atrophy of thyroid (acquired)[ICD10: E03.4] Diagnosis: Cough[ICD10: R05] Diagnosis: Laceration without foreign body of left forearm, initial encounter[ICD10: S51.812A] Diagnosis: Candidiasis of skin and nail[ICD10: B37.2] Diagnosis: Other vitamin B12 deficiency anemias[ICD10: D51.8] Diagnosis: Slow transit constipation[ICD10: K59.01] Yarely Vega MD, [facility] CPT-4: 13734 07/06/2017 [id number] EST. PATIENT, LEVEL III Diagnosis: Other vitamin B12 deficiency anemias[ICD10: D51.8] Diagnosis: Acute laryngopharyngitis[ICD10: J06.0] Diagnosis: Other allergic rhinitis[ICD10: J30.89] Brianna Vega MD, [facility] CPT- 4: 17204 06/20/2017 ([id number]) 85745 EST. PATIENT, LEVEL IV Diagnosis: Essential (primary) hypertension[ICD10: I10] Diagnosis: Chronic atrial fibrillation[ICD10: I48.2] Diagnosis: Atrophy of thyroid (acquired)[ICD10: E03.4] Diagnosis: 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 factor deficiency[ICD10: D51.0] Yarely Vega MD, [facility] CPT-4: 42234 05/25/2017 ([id number]) 47929 EST. 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 PATIENT, LEVEL IV Diagnosis: Type 2 diabetes mellitus without complications[ICD10: E11.9] Diagnosis: Essential (primary) hypertension[ICD10: I10] Diagnosis: Headache[ICD10: R51] Diagnosis: Atrophy of thyroid (acquired)[ICD10: E03.4] Diagnosis: Vitamin B12 deficiency anemia, unspecified[ICD10: D51.9] Yarely Vega MD, [facility] CPT-4: 29648 01/23/2017 [id number] EST. PATIENT, LEVEL III Diagnosis: Low back pain[ICD10: M54.5] Diagnosis: Pain in thoracic spine[ICD10: M54.6] Brianna Vega MD, [facility] CPT- 4: 44116 11/02/2016 ([id number]) 92495 EST. PATIENT, LEVEL IV Diagnosis: Essential (primary) hypertension[ICD10: I10] Diagnosis: Other vitamin B12 deficiency anemias[ICD10: D51.8] Diagnosis: Generalized abdominal pain[ICD10: R10.84] Yarely Vega MD, [facility] CPT-4: 63091 09/29/2016 ([id number]) 74395 EST. PATIENT, LEVEL IV Diagnosis: Essential (primary) hypertension[ICD10: I10] Yarely Vega MD, [facility] CPT-4: 30824 07/26/2016 ([id number]) 41641 EST. PATIENT, LEVEL IV Diagnosis: Benign lipomatous neoplasm of skin and subcutaneous tissue of right leg[ICD10: D17.23] Diagnosis: Pain in right ankle and joints of right foot[ICD10: M25.571] Diagnosis: Encounter for immunization[ICD10: Z23] Diagnosis: Vitamin B12 deficiency anemia, unspecified[ICD10: D51.9] Yarely Vega MD, [facility] CPT-4: 25849 05/25/2016 [id number] EST. PATIENT, LEVEL III Diagnosis: Other chest pain[ICD10: R07.89] Diagnosis: Other vitamin B12 deficiency anemias[ICD10: D51.8] Brianna Vega MD, [facility] CPT-4: 57210 02/25/2016 ([id number]) 60759 EST. 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 PATIENT, LEVEL III Diagnosis: Other vitamin B12 deficiency anemias[ICD10: D51.8] Diagnosis: Acute nasopharyngitis [common cold][ICD10: J00] Diagnosis: Other allergic rhinitis[ICD10: J30.89] Brianna Vega MD, [facility] CPT- 4: 73972 11/11/2015 ([id number]) 68293 EST. PATIENT, LEVEL IV Diagnosis: Essential tremor[ICD10: G25.0] Diagnosis: Chronic fatigue, unspecified[ICD10: R53.82] Diagnosis: Other hypersomnia[ICD10: G47.19] Diagnosis: Essential (primary) hypertension[ICD10: I10] Yarely Vega MD, [facility] CPT-4: 18855 10/12/2015 ([id number]) 87450 EST. PATIENT, LEVEL IV Diagnosis: Essential (primary) hypertension[ICD10: I10] Diagnosis: Chronic atrial fibrillation[ICD10: I48.2] Diagnosis: Abnormal levels of other serum enzymes[ICD10: R74.8] Diagnosis: Type 2 diabetes mellitus without complications[ICD10: E11.9] Diagnosis: Vitamin B12 deficiency anemia, unspecified[ICD10: D51.9] Yarely Vega MD, [facility] CPT-4: 38737 09/03/2015 ([id number]) 17865 EST. PATIENT, LEVEL III Diagnosis: Nausea[ICD10: R11.0] Diagnosis: Essential tremor[ICD10: G25.0] Diagnosis: Actinic keratosis[ICD10: L57.0] Yarely Vega MD, [facility] CPT-4: 68696 05/19/2015 ([id number]) 03973 EST. PATIENT, LEVEL IV Diagnosis: Vitamin B12 deficiency anemia, unspecified[ICD10: D51.9] Diagnosis: Chronic atrial fibrillation[ICD10: I48.2] Diagnosis: Headache[ICD10: R51] Diagnosis: Chronic fatigue, unspecified[ICD10: R53.82] Diagnosis: Cervicalgia[ICD10: M54.2] Yarely Vega MD, [facility] CPT-4: 88641 05/12/[id number]) [id number] EST. PATIENT, LEVEL IV Diagnosis: ESSENTIAL HYPERTENSION[ICD9: 401.9] Diagnosis: Afib[ICD9: 427.31] Diagnosis: Anxiety[ICD9: 300.00] Diagnosis: Insomnia[ICD9: 780.52] Yarely Vega MD, [facility] CPT-4: 03458 01/13/2015 ([id number]) OFFICE VISIT, NEW - LEVEL 4 Diagnosis: Hypothyroidism[ICD9: 244.9] Diagnosis: DIABETES TYPE II[ICD9: 250.00] Diagnosis: ESSENTIAL HYPERTENSION[ICD9: 401.9] Diagnosis: Afib[ICD9: 427.31] Diagnosis: Anxiety[ICD9: 300.00] Diagnosis: B12 deficiency[ICD9: 266.2] Janet Vega MD, [facility] CPT-4: 32947 12/16/2014 Plan of Care Planned Activity Notes Codes Status Date Appointment: Injection 07/04/2018 Patient Education: Patient Medication Summary Completed 07/04/2018 Appointment: Injection 06/20/2018 Patient Education: Patient Medication Summary Completed 06/20/2018 [phone] [place] ([facility] min) Complex 06/07/2018 Appointment: Injection 06/06/2018 Patient Education: Patient Medication Summary Completed 06/06/2018 App[phone] [place] (15 min) Moderate 05/31/2018 Appointment: [...] flonase 05/03/2018 App[facility]: [phone] (15 min) Moderate 05/03/2018 Patient Education: Patient [...] surgical intervention. 02/26/2018 App[phone] ([facility] min) Moderate 02/26/2018 Patient Education: Patient Medication Summary Completed 02/26/2018 Care Plan: Referral Order SNOMED-CT : [id number] Pending 02/26/2018 Appointment: Injection 02/08/2018 Patient Education: Patient Medication Summary Completed 02/08/2018 Appointment: Injection 01/24/2018 Patient Education: Patient Medication Summary Completed 01/24/2018 Appointment: Injection 01/10/2018 Patient Education: Patient Medication Summary Completed 01/10/2018 Appointment: Injection 12/27/2017 Patient Education: Patient Medication Summary Completed 12/27/2017 Appointment: Yarely Vega WPtel: [phone] [facility] (15 min) Moderate 12/26/2017 Visit Plan: Bgdgww-nujmsndhi-lokvxsuk protonix-follow up with Dr Navarro as scheduled Cough-recent bronchitis-symptoms improved-call if symptoms do not completely resolve 12/12/2017 Appointment: Janet Fam WPtel: [phone] [phone] [place] (15 min) Moderate 12/12/2017 Patient [...] medication. 12/04/2017 Appointment: Yarely Vega WPtel: [phone] [facility] (15 min) Moderate 12/04/2017 Patient Education: [...] Fatigue/malaise -Pt was advsied to ask the Jinrikisha Driver the following: ask the heart doctor if [...] becoming uncontrolled. 11/20/2017 Appointment: Yarely Vega WPtel: [facility] [place] (15 min) Moderate 11/20/2017 Patient Education: [...] any worse. 09/15/2017 Appointment: Janet Fam WPtel: [phone] [place] (15 min) Moderate 09/15/2017 Patient Education: Patient Medication Summary Completed 09/15/2017 Appointment: Yarely Vega WPtel: [facility] [place] (15 min) Moderate 09/11/2017 Visit Plan: Skin tear and Cellulitis - The patient was instructed in appropriate wound care. The patient was instructed to use the antibiotic ointment as per RX. The patient is to call for any change in symptoms, increase in size of the lesion, increase in pain, worsening redness, warmth, discharge. 09/07/2017 Appointment: Brianna Otoole WPtel: [facility]0 [facility] [place] (10 min) Simple 09/07/2017 Patient Education: Patient Medication Summary Completed 09/07/2017 Visit Plan: Lipoma - left ankle - talk to dr. barnes about possible surgery/laser for treatment of lipoma. Fatigue/malaise -Pt was advsied to ask the Jinrikisha Driver the following: ask the heart doctor if there is an alternative to the amiodarone - you may be having side effects from the medication causing you to have pruritus (itching) and feeling like you have body aches, muscle aches, joint pain, fatigue, weight loss (decreased appetite), and pneumonia like symptoms. Congestion - claritin 10mg daily. 08/30/2017 Appointment: Yarely Vega WPtel: [phone] [facility] (15 min) Moderate 08/30/2017 Patient Education: Patient Medication Summary Completed 08/30/2017 Appointment: Injection 08/24/2017 Appointment: Yarely Vega WPtel: [phone] [facility] (15 min) Moderate 08/24/2017 Patient Education: Patient [...] mucinex 07/06/2017 [phone] [facility]) Moderate 07/06/2017 Patient Education: [...] spray. 06/20/2017 Appointment: Brianna Otoole WPtel: [phone] [facility] (15 min) Moderate 06/20/2017 Patient Education: Patient [...] Appointment: Injection 06/05/2017 [phone] [facility] [facility] - Annual Wellness Visit 06/05/2017 [...] q 3 months or q 6 m [facility] based on previous levels of control. 05/25/2017 App[facility]: [phone] ([facility] min) Moderate 05/25/2017 Patient Education: [...] wall. Fatigue - pt to discuss with Jinrikisha Driver about the possibility of amiodarone causing her fatigue/malaise. 03/23/2017 App[facility]: [facility] ([facility] min) Moderate 03/23/2017 Patient Education: [...] daily. 01/23/2017 App[facility]: [phone] ([facility] min) Moderate 01/23/2017 Patient Education: [...] not improve. 11/02/2016 App[facility]ment: [phone] ([facility] min) Moderate 11/02/2016 Patient Education: [...] carafate 09/29/2016 App[facility]ment: [phone] [place] (15 min) Moderate 09/29/2016 Patient Education: Patient Medication Summary Completed 09/29/2016 App[facility]ment: [phone] [place] (15 min) Moderate 09/27/2016 Appointment: [facility] [place] (15 min) Moderate 09/20/2016 Appointment: [facility] [place] (15 min) Moderate 09/20/2016 Patient Education: Patient Medication Summary Completed 09/06/2016 Appointment: [phone] [place] (15 min) Moderate 08/30/2016 Appointment: [...] to call for acute concerns. 07/26/2016 Appointment: aYrely [facility]ega [facility]el[facility] [place] (15 min) Moderate 07/26/2016 Patient [...] care surrogate. 05/30/2016 Appointment: Brianna Otoole WPtel: [facility] [facility] - Annual Wellness Visit 05/30/2016 [...] bedtime 05/25/2016 Appointment: [phone] [place] (15 min) Moderate 05/25/2016 Patient Education: Patient Medication Summary Completed 05/25/2016 Patient Education: Obesity Completed 05/25/2016 Care Plan: Referral Order SNOMED-CT : [id number] Pending 05/25/2016 Appointment: Injection 05/10/2016 Patient Education: Patient Medication Summary Completed 05/10/2016 Appointment: Injection 04/26/2016 Patient Education: Patient Medication Summary Completed 04/26/2016 Appointment: Injection 04/11/2016 Patient Education: Patient Medication Summary Completed 04/11/2016 Appointment: Injection 03/31/2016 Patient Education: Patient Medication Summary Completed 03/31/2016 Patient Education: Patient Medication Summary Completed 03/22/2016 Care Plan: SCREENINGMAMMOGRAPHYDIGITAL [facility] : [id number] Pending 03/22/2016 Appointment: Injection 03/15/2016 Patient Education: [...] concerns. 02/25/2016 Appointment: [facility]ole [facility]el[phone] [place] (15 min) Moderate 02/25/2016 Patient [...] the patients recent sleep study - recommended [facility] patient eval of pt - nocturnal [...] the patients recent sleep study - recommended [place] patient eval of pt - nocturnal oxygen [...] later. 10/12/2015 Appointment: [phone] (15 min) Moderate 10/12/2015 Patient Education: [...] Completed 08/17/2015 Appointment: [phone] (15 min) Moderate 08/11/2015 Appointment: Injection [...] Appointment: [phone] (30 min) Complex 05/19/2015 Patient Education: [...] prn alprazolam. 01/13/2015 Appointment: Yarely Vega WPtel: [address] [place] [address] (15 min) Moderate 01/13/2015 Patient Education: Patient [...] medications. 12/16/2014 Appointment: [facility]el[phone] [place] ([place] New Patient 12/16/2014 Patient [...] DOPA paperwork for health care surrogate. . Ftuase-nuubxvrel-jjxafkcw protonix-follow up with Dr Navarro as scheduled [...] Fatigue/malaise -Pt was advsied to ask the Jinrikisha Driver the following: ask the heart doctor if [...] Fatigue/malaise -Pt was advsied to ask the Jinrikisha Driver the following: ask the heart doctor if [...] wall. Fatigue - pt to discuss with Jinrikisha Driver about the possibility of amiodarone causing her [...] the patients recent sleep study - recommended [place] [facility] patient eval of pt - nocturnal [...] the patients recent sleep study - recommended [place] [facility] patient eval of pt - nocturnal [...]
--- OUTSIDE RECORDS SUMMARY | 2018-12-05 18:41 | XMS REPORT | CCD ---
Author Author [facility] Organization [facility] Address [address] [place] [address] Phone Care Team Providers Care Bank Examiner Name Role Phone PP Unavailable CCM Unavailable Summary Purpose Interface Exchange Insurance Providers Payer name Policy type / Coverage type Covered libertarian ID Effective Begin Date Effective End Date WPS Medicare Part B Medicare Part B [id number] Unknown Principal Life Insurance Medicare Part B [id number] Unknown [employer] in [place] Medicare Part B [id number] Unknown Family history Brother Diagnosis Age At Onset Heart Attack Unknown Mother Diagnosis Age At Onset Hypertension Unknown kidney disease Unknown Stroke Unknown Father Diagnosis Age At Onset Arthritis Unknown Social History Social History Element Codes Description Effective Dates Employment Unknown Retired worked at [employer] 11/20/2017 Marital status Unknown Single 12/16/[address]: 1483243 Former smoker 12/16/[address]: 505783298 Never drinks alcohol 12/16/2014 Allergies, Adverse Reactions, Alerts Substance Reaction Codes Entered Date Inactivated Date Status CODEINE RxNorm: 2670 05/25/2016 No Inactive Date Active ciprofloxacin RxNorm: 08497 12/16/2014 No Inactive Date Active MORPHINE SULFATE [...] (vit B-12) 1,000 mcg/mL injection solution RxNorm: 559764 Milliliter(s) Inj 07/04/2018 07/04/2018 Inactive betamethasone valerate 0.1 % topical ointment RxNorm: 656122 1 TOP BID 07/04/2018 07/13/2018 Active applying to skin under nose x 10 days betamethasone valerate 0.1 % topical ointment RxNorm: 921807 1 TOP BID 07/04/2018 07/03/2018 Inactive applying to skin under nose x 10 days Aricept 10 mg tablet RxNorm: 658024 Tablet(s) 1 Tablet(s) PO daily 06/25/2018 06/19/2019 Active hydrocodone 5 mg-acetaminophen 325 mg tablet RxNorm: 910389 1-2 Tablet(s) PO Q6 as needed for pain 06/20/2018 07/19/2018 Active Flonase Allergy Relief 50 mcg/actuation nasal spray,suspension RxNorm: 7444154 [place] 1 [place] NASAL BID 06/20/2018 10/17/2018 Active cyanocobalamin (vit B-12) 1,000 mcg/mL injection solution RxNorm: 916784 Milliliter(s) Inj 06/20/2018 06/20/2018 Inactive cyanocobalamin (vit B-12) 1,000 mcg/mL injection solution RxNorm: 057053 Milliliter(s) Inj 06/06/2018 06/06/2018 Inactive alprazolam 0.25 mg tablet RxNorm: 606843 1 Tablet(s) PO BID 05/25/2018 08/22/2018 Active hydrocodone 5 mg-acetaminophen 325 mg tablet RxNorm: 435370 1-2 Tablet(s) PO Q6 as needed for pain 05/24/2018 06/19/2018 Inactive cyanocobalamin (vit B-12) 1,000 mcg/mL injection solution RxNorm: 163345 Milliliter(s) Inj 05/24/2018 05/24/2018 Inactive cyanocobalamin (vit B-12) 1,000 mcg/mL injection solution RxNorm: 867775 Milliliter(s) Inj 05/09/2018 05/09/2018 Inactive Claritin 10 mg tablet RxNorm: 198118 TAKE 1 TABLET BY MOUTH ONCE DAILY 05/08/2018 05/02/2019 Active Generic For:CLARITIN 10MG 05/07/2018 9:13:47 AM cyanocobalamin (vit B-12) 1,000 mcg/mL injection solution RxNorm: 855464 INJECT ONE 1 ML EVERY TWO WEEKS 05/03/2018 04/03/2019 Active 05/03/2018 9:13:42 AM Mobic 15 mg tablet RxNorm: 092256 Tablet(s) 1 Tablet(s) PO daily 04/26/2018 04/20/2019 Active buspirone 15 mg tablet RxNorm: 380278 Tablet(s) TAKE 1 TABLET BY MOUTH TWICE DAILY 04/26/2018 04/20/2019 Active Generic For:BUSPAR 15MG 05/31/2017 9:19:20 AM Norvasc 5 mg tablet RxNorm: 341587 Tablet(s) 1 Tablet(s) PO daily 04/26/2018 04/20/2019 Active cyanocobalamin (vit B-12) 1,000 mcg/mL injection solution RxNorm: 113941 Milliliter(s) Inj 04/26/2018 04/26/2018 Inactive hydrocodone 5 mg-acetaminophen 325 mg tablet RxNorm: 468056 1-2 Tablet(s) PO Q6 as needed for pain 04/25/2018 05/23/2018 Inactive cyanocobalamin (vit B-12) 1,000 mcg/mL injection solution RxNorm: 085044 Milliliter(s) Inj 04/12/2018 04/12/2018 Inactive Topamax 25 mg tablet RxNorm: 423139 1 Tablet(s) PO BID 04/09/2018 05/02/2018 Inactive Generic For:TOPAMAX 25MG 12/06/2016 9:15:13 AM Zoloft 50 mg tablet RxNorm: 715981 TAKE 1 TABLET BY MOUTH ONCE DAILY 04/04/2018 12/29/2018 Active Generic For:ZOLOFT 50MG 04/04/2018 9:13:25 AM cyanocobalamin (vit B-12) 1,000 mcg/mL injection solution RxNorm: 168549 Milliliter(s) Inj 03/30/2018 03/30/2018 Inactive levothyroxine 125 mcg tablet RxNorm: 585995 TAKE 1 TABLET BY MOUTH EVERY DAY 03/26/2018 09/21/2018 Active Generic For:SYNTHROID 125MCG TAB 03/26/2018 9:15:59 AM liothyronine 5 mcg tablet RxNorm: 796094 TAKE 1 TABLET BY MOUTH TWICE DAILY 03/26/2018 09/21/2018 Active Generic For:CYTOMEL 5MCG 03/26/2018 9:15:54 AM hydrocodone 5 mg-acetaminophen 325 mg tablet RxNorm: 380573 1-2 Tablet(s) PO Q6 as needed for pain 03/19/2018 04/17/2018 Inactive cyanocobalamin (vit B-12) 1,000 mcg/mL injection solution RxNorm: 846844 Milliliter(s) Inj 03/16/2018 03/16/2018 Inactive Flonase Allergy Relief 50 mcg/actuation nasal spray,suspension RxNorm: 9320329 1 [place] NASAL BID 03/05/2018 06/19/2018 Inactive cyanocobalamin (vit B-12) 1,000 mcg/mL injection solution RxNorm: 486279 Milliliter(s) Inj 03/02/2018 03/02/2018 Inactive alprazolam 0.25 mg tablet RxNorm: 772130 1 Tablet(s) PO BID 02/28/2018 05/27/2018 Inactive cyanocobalamin (vit B-12) 1,000 mcg/mL injection solution RxNorm: 455138 Milliliter(s) Inj 02/08/2018 02/08/2018 Inactive cyanocobalamin (vit B-12) 1,000 mcg/mL injection solution RxNorm: 682158 Milliliter(s) Inj 01/24/2018 01/24/2018 Inactive albuterol sulfate 2.5 mg/3 mL (0.083 %) solution for nebulization RxNorm: 824531 3 Milliliter(s) INH Q6 PRN 01/24/2018 05/02/2018 Inactive Claritin 10 mg tablet RxNorm: 153778 1 Tablet(s) PO daily 01/15/2018 05/07/2018 Inactive cyanocobalamin (vit B-12) 1,000 mcg/mL injection solution RxNorm: 923842 Milliliter(s) Inj 01/10/2018 01/10/2018 Inactive hydrocodone 5 mg-acetaminophen 325 mg tablet RxNorm: 176505 1-2 Tablet(s) PO Q6 as needed for pain 01/09/2018 02/07/2018 Inactive cyanocobalamin (vit B-12) 1,000 mcg/mL injection solution RxNorm: 808177 Milliliter(s) Inj 12/27/2017 12/27/2017 Inactive cyanocobalamin (vit B-12) 1,000 mcg/mL injection solution RxNorm: 621797 1 Milliliter(s) Inj 12/12/2017 12/12/2017 Inactive Zofran ODT 4 mg disintegrating tablet RxNorm: 462316 1 Tablet(s) PO TID as needed 12/08/2017 12/09/2017 Inactive hydrocodone 2.5 mg-guaifenesin 200 mg/5 mL oral solution RxNorm: 831145 5 Milliliter(s) PO 12/04/2017 05/06/2018 Inactive doxycycline hyclate 100 mg capsule RxNorm: 2414270 1 Capsule(s) PO BID 12/04/2017 12/13/2017 Inactive cyanocobalamin (vit B-12) 1,000 mcg/mL injection solution RxNorm: 869979 Milliliter(s) Inj 12/01/2017 12/01/2017 Inactive Flonase Allergy Relief 50 mcg/actuation nasal spray,suspension RxNorm: 0699915 1 [place] NASAL BID 11/20/2017 2018 Inactive cyanocobalamin (vit B-12) 1,000 mcg/mL injection solution RxNorm: 397107 1 Milliliter(s) Inj 11/17/2017 11/17/2017 Inactive hydrocodone 5 mg-acetaminophen 325 mg tablet RxNorm: 579513 1-2 Tablet(s) PO Q6 as needed for pain 11/16/2017 12/15/2017 Inactive cyanocobalamin (vit B-12) 1,000 mcg/mL injection solution RxNorm: 435595 1 Milliliter(s) Inj 11/02/2017 11/02/2017 Inactive hydrocodone 5 mg-acetaminophen 325 mg tablet RxNorm: 545084 1-2 Tablet(s) PO Q6 as needed for pain 10/25/2017 11/15/2017 Inactive Claritin 10 mg tablet RxNorm: 157149 1 Tablet(s) PO daily 10/25/2017 11/19/2017 Inactive albuterol sulfate 2.5 mg/3 mL (0.083 %) solution for nebulization RxNorm: 301024 3 Milliliter(s) INH Q6 PRN 10/25/2017 01/23/2018 Inactive Claritin 10 mg tablet RxNorm: 558998 1 Tablet(s) PO daily 10/25/2017 10/24/2017 Inactive cyanocobalamin (vit B-12) 1,000 mcg/mL injection solution RxNorm: 472439 1 Milliliter(s) Inj 10/20/2017 10/20/2017 Inactive Zoloft 50 mg tablet RxNorm: 010430 TAKE 1 TABLET BY MOUTH ONCE DAILY 10/13/2017 04/03/2018 Inactive Generic For:ZOLOFT 50MG 10/13/2017 8:59:44 AM cyanocobalamin (vit B-12) 1,000 mcg/mL injection solution RxNorm: 582991 Milliliter(s) Inj 10/06/2017 10/06/2017 Inactive liothyronine 5 mcg tablet RxNorm: 993758 TAKE 1 TABLET BY MOUTH TWICE DAILY 10/03/2017 03/25/2018 Inactive Generic For:CYTOMEL 5MCG 10/03/2017 9:13:38 AM cyanocobalamin (vit B-12) 1,000 mcg/mL injection solution RxNorm: 857558 Milliliter(s) Inj 09/21/2017 09/21/2017 Inactive albuterol sulfate 2.5 mg/3 mL (0.083 %) solution for nebulization RxNorm: 073479 3 Milliliter(s) INH Q6 PRN 09/21/2017 10/24/2017 Inactive hydrocodone 5 mg-acetaminophen 325 mg tablet RxNorm: 783584 1-2 Tablet(s) PO Q6 as needed for pain 09/21/2017 10/20/2017 Inactive Kenalog 40 mg/mL suspension for injection RxNorm: 0312623 Milliliter(s) Inj 09/15/2017 09/15/2017 Inactive Keflex 500 mg capsule RxNorm: 621508 1 Capsule(s) PO TID 09/07/2017 09/16/2017 Inactive Please deliver to patient cyanocobalamin (vit B-12) 1,000 mcg/mL injection solution RxNorm: 407040 Milliliter(s) Inj 09/07/2017 09/07/2017 Inactive alprazolam 0.25 mg tablet RxNorm: 932600 1 Tablet(s) PO BID 09/06/2017 02/27/2018 Inactive Aricept 10 mg tablet RxNorm: 436479 1 Tablet(s) PO daily 09/06/2017 06/24/2018 Inactive hydrocodone 5 mg-acetaminophen 325 mg tablet RxNorm: 815775 1-2 Tablet(s) PO Q6 as needed for pain 08/24/2017 09/20/2017 Inactive cyanocobalamin (vit B-12) 1,000 mcg/mL injection solution RxNorm: 644821 Milliliter(s) Inj 08/24/2017 08/24/2017 Inactive Norvasc 5 mg tablet RxNorm: 986031 1 Tablet(s) PO daily 08/18/2017 04/25/2018 Inactive nystatin 100,000 unit/gram topical powder RxNorm: 316437 1 Gram(s) TOP QID 08/17/2017 08/26/2017 Inactive hydrocodone 5 mg-acetaminophen 325 mg tablet RxNorm: 905227 1-2 Tablet(s) PO Q6 as needed for pain 07/25/2017 08/23/2017 Inactive Tamiflu 75 mg capsule RxNorm: 533801 1 Capsule(s) PO BID 07/24/2017 12/11/2017 Inactive nystatin 100,000 unit/gram topical powder RxNorm: 080805 1 Gram(s) TOP QID 07/14/2017 07/22/2017 Inactive levothyroxine 125 mcg tablet RxNorm: 385788 Tablet(s) 1 Tablet(s) PO daily 07/10/2017 01/05/2018 Inactive nystatin 100,000 unit/gram topical powder RxNorm: 861195 1 Gram(s) TOP QID 07/06/2017 07/13/2017 Inactive cyanocobalamin (vit B-12) 1,000 mcg/mL injection solution RxNorm: 842012 Milliliter(s) Inj 07/06/2017 07/06/2017 Inactive Kenalog 40 mg/mL suspension for injection RxNorm: 6467586 1 Milliliter(s) Inj 06/20/2017 06/20/2017 Inactive doxycycline hyclate 100 mg capsule RxNorm: 0500992 1 Capsule(s) PO BID 06/20/2017 06/26/2017 Inactive cyanocobalamin (vit B-12) 1,000 mcg/mL injection solution RxNorm: 313160 Milliliter(s) Inj 06/20/2017 06/20/2017 Inactive Keflex 500 mg capsule RxNorm: 702557 1 Capsule(s) PO TID 06/14/2017 06/23/2017 Inactive Please deliver to patient Mobic 15 mg tablet RxNorm: 752723 1 Tablet(s) PO daily 06/14/2017 04/25/2018 Inactive cyanocobalamin (vit B-12) 1,000 mcg/mL injection solution RxNorm: 421342 Milliliter(s) Inj 06/05/2017 06/05/2017 Inactive buspirone 15 mg tablet RxNorm: 837368 TAKE 1 TABLET BY MOUTH TWICE DAILY 05/31/2017 04/25/2018 Inactive Generic For:BUSPAR 15MG 05/31/2017 9:19:20 AM cyanocobalamin (vit B-12) 1,000 mcg/mL injection solution RxNorm: 100012 Milliliter(s) Inj 05/25/2017 05/25/2017 Inactive hydrocodone 5 mg-acetaminophen 325 mg tablet RxNorm: 444938 1-2 Tablet(s) PO Q6 as needed for pain 05/25/2017 06/23/2017 Inactive amiodarone 200 mg tablet RxNorm: 755918 1/2 Tablet(s) PO daily 05/22/2017 No Stop Date Active cardiology decreased to 100mg daily cyanocobalamin (vit B-12) 1,000 mcg/mL injection solution RxNorm: 765455 Milliliter(s) Inj 05/16/2017 05/16/2017 Inactive Zofran ODT 4 mg disintegrating tablet RxNorm: 988182 1 Tablet(s) PO TID as needed 05/03/2017 05/04/2017 Inactive hydrocodone 5 mg-acetaminophen 325 mg tablet RxNorm: 559886 1-2 Tablet(s) PO Q6 as needed for pain 05/01/2017 05/05/2017 Inactive cyanocobalamin (vit B-12) 1,000 mcg/mL injection solution RxNorm: 685258 1 Milliliter(s) Inj 05/01/2017 05/01/2017 Inactive cyanocobalamin (vit B-12) 1,000 mcg/mL injection solution RxNorm: 152024 INJECT ONE 1 ML EVERY TWO WEEKS 04/26/2017 12/04/2018 Active 04/26/2017 9:08:52 AM Zoloft 50 mg tablet RxNorm: 694379 Tablet(s) TAKE 1 TABLET BY MOUTH DAILY 04/25/2017 10/12/2017 Inactive Generic For:ZOLOFT 50MG cyanocobalamin (vit B-12) 1,000 mcg/mL injection solution RxNorm: 444309 Milliliter(s) Inj 04/18/2017 04/18/2017 Inactive liothyronine 5 mcg tablet RxNorm: 651480 1 Tablet(s) PO BID 04/13/2017 10/02/2017 Inactive cyanocobalamin (vit B-12) 1,000 mcg/mL injection solution RxNorm: 396904 Milliliter(s) Inj 04/06/2017 04/06/2017 Inactive hydrocodone 5 mg-acetaminophen 325 mg tablet RxNorm: 165492 1-2 Tablet(s) PO Q6 as needed for pain 04/06/2017 04/10/2017 Inactive cyanocobalamin (vit B-12) 1,000 mcg/mL injection solution RxNorm: 419186 Milliliter(s) Inj 03/22/2017 03/22/2017 Inactive alprazolam 0.25 mg tablet RxNorm: 662178 1 Tablet(s) PO BID 03/17/2017 12/11/2017 Inactive alprazolam 0.25 mg tablet RxNorm: 377821 1 Tablet(s) PO BID 03/16/2017 09/05/2017 Inactive hydrocodone 5 mg-acetaminophen 325 mg tablet RxNorm: 871821 1-2 Tablet(s) PO Q6 as needed for pain 03/09/2017 03/13/2017 Inactive cyanocobalamin (vit B-12) 1,000 mcg/mL injection solution RxNorm: 061259 Milliliter(s) Inj 03/09/2017 03/09/2017 Inactive cyanocobalamin (vit B-12) 1,000 mcg/mL injection solution RxNorm: 703480 Milliliter(s) Inj 02/23/2017 02/23/2017 Inactive cyanocobalamin (vit B-12) 1,000 mcg/mL injection solution RxNorm: 290780 Milliliter(s) Inj 02/09/2017 02/09/2017 Inactive hydrocodone 5 mg-acetaminophen 325 mg tablet RxNorm: 283389 1-2 Tablet(s) PO Q6 as needed for pain 02/08/2017 02/12/2017 Inactive Topamax 25 mg tablet RxNorm: 873032 1 Tablet(s) PO BID 01/23/2017 05/22/2017 Inactive Generic For:TOPAMAX 25MG 12/06/2016 9:15:13 AM cyanocobalamin (vit B-12) 1,000 mcg/mL injection solution RxNorm: 390146 Milliliter(s) Inj 01/23/2017 01/23/2017 Inactive cyanocobalamin (vit B-12) 1,000 mcg/mL injection solution RxNorm: 940268 Milliliter(s) Inj 01/10/2017 01/10/2017 Inactive hydrocodone 5 mg-acetaminophen 325 mg tablet RxNorm: 281514 1-2 Tablet(s) PO Q6 as needed for pain 01/09/2017 01/13/2017 Inactive cyanocobalamin (vit B-12) 1,000 mcg/mL injection solution RxNorm: 883100 1 Milliliter(s) Inj 12/28/2016 12/28/2016 Inactive cyanocobalamin (vit B-12) 1,000 mcg/mL injection solution RxNorm: 305262 Milliliter(s) Inj 12/14/2016 12/14/2016 Inactive buspirone 15 mg tablet RxNorm: 513471 1 Tablet(s) PO BID 12/12/2016 05/30/2017 Inactive hydrocodone 5 mg-acetaminophen 325 mg tablet RxNorm: 533558 1-2 Tablet(s) PO Q6 as needed for pain 12/08/2016 12/12/2016 Inactive Topamax 25 mg tablet RxNorm: 817235 TAKE 1 TABLET BY MOUTH EVERY DAY AT BEDTIME 12/06/2016 01/22/2017 Inactive Generic For:TOPAMAX 25MG 12/06/2016 9:15:13 AM Lac-Hydrin Five 5 % lotion RxNorm: 822001 1 Gram(s) TOP daily 12/02/2016 05/02/2018 Inactive cyanocobalamin (vit B-12) 1,000 mcg/mL injection solution RxNorm: 890185 Milliliter(s) Inj 11/24/2016 11/24/2016 Inactive Ceftin 500 mg tablet RxNorm: 009326 1 Tablet(s) PO BID 11/11/2016 06/13/2017 Inactive Cipro 500 mg tablet RxNorm: 522822 1 Tablet(s) PO BID 11/11/2016 11/10/2016 Inactive Cipro 500 mg tablet RxNorm: 762368 1 Tablet(s) PO BID 11/11/2016 11/11/2016 Inactive cyanocobalamin (vit B-12) 1,000 mcg/mL injection solution RxNorm: 638819 1 Milliliter(s) Inj 11/07/2016 11/07/2016 Inactive hydrocodone 5 mg-acetaminophen 325 mg tablet RxNorm: 507265 1-2 Tablet(s) PO Q6 as needed for pain 11/02/2016 11/06/2016 Inactive cyanocobalamin (vit B-12) 1,000 mcg/mL injection solution RxNorm: 455672 Milliliter(s) Inj 10/24/2016 10/24/2016 Inactive levothyroxine 125 mcg tablet RxNorm: 419350 Tablet(s) 1 Tablet(s) PO daily 10/24/2016 04/21/2017 Inactive liothyronine 5 mcg tablet RxNorm: 431471 1 Tablet(s) PO BID 10/24/2016 04/12/2017 Inactive hydrocodone 5 mg-acetaminophen 325 mg tablet RxNorm: 589402 1-2 Tablet(s) PO Q6 as needed for pain 10/17/2016 10/21/2016 Inactive Keflex 500 mg capsule RxNorm: 790431 1 Capsule(s) PO TID 10/07/2016 10/06/2016 Inactive Keflex 500 mg capsule RxNorm: 882019 1 Capsule(s) PO TID 10/07/2016 10/16/2016 Inactive Please deliver to patient cyanocobalamin (vit B-12) 1,000 mcg/mL injection solution RxNorm: 884204 1 Milliliter(s) Inj 09/29/2016 09/29/2016 Inactive alprazolam 0.25 mg tablet RxNorm: 766982 1 Tablet(s) PO BID 09/20/2016 03/16/2017 Inactive Cozaar 100 mg tablet RxNorm: 236357 1 Tablet(s) PO daily 09/14/2016 No Stop Date Active metoprolol tartrate 50 mg tablet RxNorm: 541051 1/2 Tablet(s) PO BID 09/14/2016 12/12/2016 Inactive Zoloft 50 mg tablet RxNorm: 140195 Tablet(s) TAKE 1 TABLET BY MOUTH DAILY 09/14/2016 03/12/2017 Inactive Generic For:ZOLOFT 50MG liothyronine 5 mcg tablet RxNorm: 361246 1 Tablet(s) PO BID 09/14/2016 10/23/2016 Inactive Calmoseptine 0.44 %-20.6 % topical ointment RxNorm: 890841 1 Application TOP BID and as needed to sore on buttocks 09/07/2016 No Stop Date Active cyanocobalamin (vit B-12) 1,000 mcg/mL injection solution RxNorm: 603657 Milliliter(s) Inj 08/29/2016 08/29/2016 Inactive hydrocodone 5 mg-acetaminophen 325 mg tablet RxNorm: 037213 1-2 Tablet(s) PO Q6 as needed for pain 08/29/2016 10/16/2016 Inactive levothyroxine 125 mcg tablet RxNorm: 341395 1 Tablet(s) PO daily 08/25/2016 10/23/2016 Inactive Topamax 25 mg tablet RxNorm: 487342 TAKE 1 TABLET BY MOUTH EVERY DAY AT BEDTIME 08/17/2016 12/05/2016 Inactive Generic For:TOPAMAX 25MG 08/17/2016 2:14:37 PM hydrocodone 5 mg-acetaminophen 325 mg tablet RxNorm: 379053 1-2 Tablet(s) PO Q6 as needed for pain 08/11/2016 08/28/2016 Inactive hydrocodone 5 mg-acetaminophen 325 mg tablet RxNorm: 939599 1 -2 Tablet(s) PO Q6 as needed for pain 08/11/2016 08/18/2016 Inactive hydrocodone 5 mg-acetaminophen 325 mg tablet RxNorm: 646683 1 Tablet(s) PO Q6 as needed for pain 08/05/2016 08/10/2016 Inactive cyanocobalamin (vit B-12) 1,000 mcg/mL injection solution RxNorm: 522097 Milliliter(s) Inj 08/04/2016 08/04/2016 Inactive Norvasc 10 mg tablet RxNorm: 481803 1 Tablet(s) PO daily 07/26/2016 07/20/2017 Inactive alprazolam 0.25 mg tablet RxNorm: 278581 1 Tablet(s) PO QHS 07/21/2016 09/19/2016 Inactive Norvasc 5 mg tablet RxNorm: 529967 1 Tablet(s) PO daily 07/21/2016 07/25/2016 Inactive levothyroxine 125 mcg tablet RxNorm: 686848 1 Tablet(s) PO daily 07/21/2016 12/11/2017 Inactive cyanocobalamin (vit B-12) 1,000 mcg/mL injection solution RxNorm: 499210 Milliliter(s) Inj 07/21/2016 07/21/2016 Inactive Zoloft 50 mg tablet RxNorm: 758716 Tablet(s) TAKE 1 TABLET BY MOUTH DAILY 07/21/2016 09/13/2016 Inactive Generic For:ZOLOFT 50MG cyanocobalamin (vit B-12) 1,000 mcg/mL injection solution RxNorm: 821973 1 Milliliter(s) Inj 07/05/2016 07/05/2016 Inactive cyanocobalamin (vit B-12) 1,000 mcg/mL injection solution RxNorm: 838337 1 Milliliter(s) Inj 06/22/2016 06/22/2016 Inactive cyanocobalamin (vit B-12) 1,000 mcg/mL injection solution RxNorm: 002417 Milliliter(s) Inj 06/09/2016 06/09/2016 Inactive Aricept 10 mg tablet RxNorm: 236128 1 Tablet(s) PO daily 05/27/2016 05/21/2017 Inactive Mobic 15 mg tablet RxNorm: 270298 1 Tablet(s) PO daily 05/27/2016 05/21/2017 Inactive levothyroxine 125 mcg tablet RxNorm: 315929 1 Tablet(s) PO daily 05/25/2016 07/20/2016 Inactive cyanocobalamin (vit B-12) 1,000 mcg/mL injection solution RxNorm: 868555 1 Milliliter(s) Inj 05/25/2016 05/25/2016 Inactive doxycycline hyclate 100 mg capsule RxNorm: 4445424 1 Capsule(s) PO BID 05/16/2016 05/15/2016 Inactive doxycycline hyclate 100 mg capsule RxNorm: 8672104 1 Capsule(s) PO BID 05/16/2016 05/22/2016 Inactive cyanocobalamin (vit B-12) 1,000 mcg/mL injection solution RxNorm: 564780 Milliliter(s) Inj 05/10/2016 05/10/2016 Inactive cyanocobalamin (vit B-12) 1,000 mcg/mL injection solution RxNorm: 743949 Milliliter(s) Inj 04/26/2016 04/26/2016 Inactive Topamax 25 mg tablet RxNorm: 177710 1 Tablet(s) PO QPM 04/22/2016 08/16/2016 Inactive cyanocobalamin (vit B-12) 1,000 mcg/mL injection solution RxNorm: 098656 Milliliter(s) 1 Milliliter(s) Inj [id number] 04/11/2016 12/31/2017 Inactive liothyronine 5 mcg tablet RxNorm: 237036 1 Tablet(s) PO BID 04/11/2016 09/13/2016 Inactive cyanocobalamin (vit B-12) 1,000 mcg/mL injection solution RxNorm: 332941 Milliliter(s) Inj 04/11/2016 04/11/2016 Inactive cyanocobalamin (vit B-12) 1,000 mcg/mL injection solution RxNorm: 173703 Milliliter(s) Inj 03/31/2016 03/31/2016 Inactive cyanocobalamin (vit B-12) 1,000 mcg/mL injection solution RxNorm: 774159 1 Milliliter(s) Inj 03/15/2016 03/15/2016 Inactive levothyroxine 125 mcg tablet RxNorm: 829227 1 Tablet(s) PO daily 2016 03/03/2016 Inactive levothyroxine 125 mcg tablet RxNorm: 607438 1 Tablet(s) PO daily 2016 05/24/2016 Inactive cyanocobalamin (vit B-12) 1,000 mcg/mL injection solution RxNorm: 935403 Milliliter(s) Inj 02/25/2016 02/25/2016 Inactive cyanocobalamin (vit B-12) 1,000 mcg/mL injection solution RxNorm: 281000 1 Milliliter(s) Inj 02/02/2016 02/02/2016 Inactive sucralfate 1 gram tablet RxNorm: 893946 1 Tablet(s) PO QHS 01/25/2016 No Stop Date Active amiodarone 200 mg tablet RxNorm: 287241 1/2 Tablet(s) PO BID 01/25/2016 05/21/2017 Inactive cyanocobalamin (vit B-12) 1,000 mcg/mL injection solution RxNorm: 004415 Milliliter(s) Inj 01/18/2016 01/18/2016 Inactive cyanocobalamin (vit B-12) 1,000 mcg/mL injection solution RxNorm: 365891 Milliliter(s) Inj 12/29/2015 12/29/2015 Inactive Topamax 25 mg tablet RxNorm: 596032 1 Tablet(s) PO QPM 12/08/2015 04/05/2016 Inactive cyanocobalamin (vit B-12) 1,000 mcg/mL injection solution RxNorm: 754640 Milliliter(s) Inj 12/08/2015 12/08/2015 Inactive Bactrim DS 800 mg-160 mg tablet RxNorm: 550214 1 Tablet(s) PO BID 11/23/2015 11/22/2015 Inactive cyanocobalamin (vit B-12) 1,000 mcg/mL injection solution RxNorm: 312237 Milliliter(s) Inj 11/23/2015 11/23/2015 Inactive Bactrim DS 800 mg-160 mg tablet RxNorm: 174898 1 Tablet(s) PO BID 11/23/2015 11/29/2015 Inactive cyanocobalamin (vit B-12) 1,000 mcg/mL injection solution RxNorm: 938426 Milliliter(s) Inj 11/11/2015 11/11/2015 Inactive amoxicillin 500 mg capsule RxNorm: 130500 1 Capsule(s) PO TID 11/10/2015 11/19/2015 Inactive Zithromax Z-Henrique 250 mg tablet RxNorm: 806328 1 Tablet(s) PO UD 11/10/2015 01/24/2016 Inactive zpack x 1 amoxicillin 500 mg capsule RxNorm: 609931 1 Capsule(s) PO TID 11/10/2015 11/09/2015 Inactive cyanocobalamin (vit B-12) 1,000 mcg/mL injection solution RxNorm: 816558 1 Milliliter(s) Inj 10/29/2015 10/29/2015 Inactive [place] 3 capsule RxNorm: 1 Capsule(s) PO QAM , 2 Capsules at noon, 1 Capsule QHS 10/13/2015 No Stop Date Active potassium chloride ER 20 mEq tablet,extended release RxNorm: 935900 2 Tablet(s) PO daily at noon 10/13/2015 No Stop Date Active alprazolam 0.25 mg tablet RxNorm: 792703 1 Tablet(s) PO QHS 10/13/2015 07/20/2016 Inactive amiodarone 200 mg tablet RxNorm: 745479 1 Tablet(s) PO BID 10/13/2015 01/24/2016 Inactive cyanocobalamin (vit B-12) 1,000 mcg/mL injection solution RxNorm: 838421 1 Milliliter(s) Inj 10/12/2015 10/12/2015 Inactive Zofran 4 mg tablet RxNorm: 667545 1 Tablet(s) PO daily as needed 10/07/2015 05/24/2016 Inactive Zoloft 50 mg tablet RxNorm: 595721 TAKE 1 TABLET BY MOUTH DAILY 10/05/2015 05/01/2016 Inactive Generic For:ZOLOFT 50MG cyanocobalamin (vit B-12) 1,000 mcg/mL injection solution RxNorm: 772689 1 Milliliter(s) Inj 09/29/2015 09/29/2015 Inactive cyanocobalamin (vit B-12) 1,000 mcg/mL injection solution RxNorm: 025118 1 Milliliter(s) Inj 09/17/2015 09/17/2015 Inactive Norvasc 5 mg tablet RxNorm: 573216 1 Tablet(s) PO daily 09/17/2015 07/20/2016 Inactive liothyronine 5 mcg tablet RxNorm: 768207 1 Tablet(s) PO BID 09/17/2015 03/14/2016 Inactive Zoloft 50 mg tablet RxNorm: 493327 1 Tablet(s) PO daily 09/17/2015 10/04/2015 Inactive buspirone 15 mg tablet RxNorm: 955546 1 Tablet(s) PO BID 09/17/2015 09/10/2016 Inactive buspirone 15 mg tablet RxNorm: 199249 1 Tablet(s) PO BID 09/14/2015 09/16/2015 Inactive Topamax 25 mg tablet RxNorm: 415790 1 Tablet(s) PO QPM 09/03/2015 12/07/2015 Inactive cyanocobalamin (vit B-12) 1,000 mcg/mL injection solution RxNorm: 863188 1 Milliliter(s) Inj 09/03/2015 09/03/2015 Inactive cyanocobalamin (vit B-12) 1,000 mcg/mL injection solution RxNorm: 760338 Milliliter(s) Inj 08/17/2015 08/17/2015 Inactive cyanocobalamin (vit B-12) 1,000 mcg/mL injection solution RxNorm: 738374 Milliliter(s) Inj 08/06/2015 08/06/2015 Inactive levothyroxine 150 mcg tablet RxNorm: 759050 1 Tablet(s) PO daily 07/22/2015 03/03/2016 Inactive Aricept 10 mg tablet RxNorm: 190787 1 Tablet(s) PO daily 07/22/2015 05/26/2016 Inactive Mobic 15 mg tablet RxNorm: 995482 1 Tablet(s) PO daily 07/22/2015 05/26/2016 Inactive cyanocobalamin (vit B-12) 1,000 mcg/mL injection solution RxNorm: 793487 Milliliter(s) Inj 07/22/2015 07/22/2015 Inactive liothyronine 5 mcg tablet RxNorm: 895568 1 Tablet(s) PO BID 07/22/2015 09/16/2015 Inactive cyanocobalamin (vit B-12) 1,000 mcg/mL injection solution RxNorm: 799531 Milliliter(s) Inj 07/08/2015 07/08/2015 Inactive cyanocobalamin (vit B-12) 1,000 mcg/mL injection solution RxNorm: 319922 Milliliter(s) Inj 06/23/2015 06/23/2015 Inactive cyanocobalamin (vit B-12) 1,000 mcg/mL injection solution RxNorm: 356307 1 Milliliter(s) Inj 06/08/2015 06/08/2015 Inactive cyanocobalamin (vit B-12) 1,000 mcg/mL injection solution RxNorm: 786957 Milliliter(s) Inj 05/27/2015 05/27/2015 Inactive Aricept 10 mg tablet RxNorm: 698814 1 Tablet(s) PO daily 05/20/2015 07/21/2015 Inactive Zofran 4 mg tablet RxNorm: 365685 1 Tablet(s) PO daily as needed 05/20/2015 06/18/2015 Inactive alprazolam 0.25 mg tablet RxNorm: 552095 1 Tablet(s) PO BID 05/20/2015 10/12/2015 Inactive Mobic 15 mg tablet RxNorm: 766875 1 Tablet(s) PO daily 05/20/2015 07/21/2015 Inactive tramadol ER 100 mg tablet,extended release 24 hr RxNorm: 759647 1 Tablet(s) PO Q6 as needed 05/13/2015 No Stop Date Active cyanocobalamin (vit B-12) 1,000 mcg/mL injection solution RxNorm: 425758 1 Milliliter(s) Inj 05/12/2015 05/12/2015 Inactive Topamax 25 mg tablet RxNorm: 038377 1 Tablet(s) PO BID (start at one pill at bedtime x 1week then twice daily thereafter) 05/12/2015 09/02/2015 Inactive cyanocobalamin (vit B-12) 1,000 mcg/mL injection kit RxNorm: 577346 kit Inj 04/30/2015 04/30/2015 Inactive cyanocobalamin (vit B-12) 1,000 mcg/mL injection solution RxNorm: 453090 Milliliter(s) Inj 04/16/2015 04/16/2015 Inactive levothyroxine 150 mcg tablet RxNorm: 446713 1 Tablet(s) PO daily 04/08/2015 07/21/2015 Inactive cyanocobalamin (vit B-12) 1,000 mcg/mL injection solution RxNorm: 259862 Milliliter(s) 1 Milliliter(s) Inj K2vmzlm 04/08/2015 04/10/2016 Inactive Cytomel 5 mcg tablet RxNorm: 667307 1 Tablet(s) PO BID 04/08/2015 10/12/2015 Inactive Cytomel 5 mcg tablet RxNorm: 601336 1 Tablet(s) PO BID 04/07/2015 04/07/2015 Inactive Cytomel 5 mcg tablet RxNorm: 545638 1 Tablet(s) PO BID 04/07/2015 04/06/2015 Inactive cyanocobalamin (vit B-12) 1,000 mcg/mL injection solution RxNorm: 884321 Milliliter(s) Inj 04/02/2015 04/02/2015 Inactive cyanocobalamin (vit B-12) 1,000 mcg/mL injection solution RxNorm: 469306 Milliliter(s) Inj 03/18/2015 03/18/2015 Inactive cyanocobalamin (vit B-12) 1,000 mcg/mL injection solution RxNorm: 160770 Milliliter(s) 1 Milliliter(s) Inj [id number] 03/18/2015 04/07/2015 Inactive cyanocobalamin (vit B-12) 1,000 mcg/mL injection solution RxNorm: 576355 1 Milliliter(s) Inj E2slion 03/16/2015 03/17/2015 Inactive cyanocobalamin (vit B-12) 1,000 mcg/mL injection solution RxNorm: 441289 Milliliter(s) Inj 03/03/2015 03/03/2015 Inactive cyanocobalamin (vit B-12) 1,000 mcg/mL injection solution RxNorm: 753700 Milliliter(s) Inj 02/18/2015 02/18/2015 Inactive cyanocobalamin (vit B-12) 1,000 mcg/mL injection solution RxNorm: 968104 Milliliter(s) Inj 02/04/2015 02/04/2015 Inactive cyanocobalamin (vit B-12) 1,000 mcg/mL injection solution RxNorm: 577782 Milliliter(s) Inj 01/22/2015 01/22/2015 Inactive Lac-Hydrin Five 5 % lotion RxNorm: 000121 1 TOP daily 01/13/2015 03/13/2015 Inactive Lac-Hydrin Five 5 % lotion RxNorm: 166701 1 TOP daily 01/13/2015 01/12/2015 Inactive cyanocobalamin (vit B-12) 1,000 mcg/mL injection solution RxNorm: 315112 Milliliter(s) Inj 01/08/2015 01/08/2015 Inactive cyanocobalamin (vit B-12) 1,000 mcg/mL injection solution RxNorm: 618804 Milliliter(s) Inj 12/25/2014 12/25/2014 Inactive levothyroxine 150 mcg tablet RxNorm: 714550 1 Tablet(s) PO daily 12/24/2014 04/07/2015 Inactive tramadol 50 mg tablet RxNorm: 629561 1-2 Tablet(s) PO Q6 as needed 12/17/2014 05/12/2015 Inactive alprazolam 0.25 mg tablet RxNorm: 847819 1 Tablet(s) PO BID 12/17/2014 04/15/2015 Inactive Pradaxa 150 mg capsule RxNorm: 7460992 1 Capsule(s) PO BID 12/16/2014 No Stop Date Active metoprolol tartrate 50 mg tablet RxNorm: 631291 1/2 Tablet(s) PO BID 12/16/2014 09/13/2016 Inactive buspirone 15 mg tablet RxNorm: 585646 1 Tablet(s) PO BID 12/16/2014 09/13/2015 Inactive cyanocobalamin (vit B-12) 1,000 mcg/mL injection solution RxNorm: 895732 1 Milliliter(s) Inj D1wxmhv 12/16/2014 03/15/2015 Inactive cyanocobalamin (vit B-12) 1,000 mcg/mL injection solution RxNorm: 357668 1 Milliliter(s) Inj Y2qsnup 12/16/2014 12/15/2014 Inactive sucralfate 1 gram tablet RxNorm: 181300 Tablet(s) PO QID 12/16/2014 12/10/2015 Inactive cyanocobalamin (vit B-12) 1,000 mcg/mL injection solution RxNorm: 187147 Milliliter(s) Inj 12/10/2014 12/10/2014 Inactive cyanocobalamin (vit B-12) 1,000 mcg/mL injection solution RxNorm: 456357 Milliliter(s) Inj 11/26/2014 11/26/2014 Inactive Zoloft 50 mg tablet RxNorm: 844180 1 Tablet(s) PO daily 11/24/2014 06/21/2015 Inactive Zoloft 50 mg tablet RxNorm: 965892 1 Tablet(s) PO daily 11/24/2014 11/23/2014 Inactive cyanocobalamin (vit B-12) 1,000 mcg/mL injection kit RxNorm: 255797 Milliliter(s) Inj 11/12/2014 11/12/2014 Inactive cyanocobalamin (vit B-12) 1,000 mcg/mL injection solution RxNorm: 016348 Milliliter(s) Inj 10/28/2014 10/28/2014 Inactive [SAVINGS FOR NON-COVERED DRUGS -- BIN:[id number], PCN: [id number], Group: [id number], ID# [id number], Questions: . THIS IS NOT INSURANCE.] promethazine oral RxNorm: 8745 oral No Start Date Active digoxin 125 mcg tablet RxNorm: 417875 Tablet(s) PO every other day No Start Date Active furosemide 40 mg tablet RxNorm: 319967 1 Tablet(s) PO daily No Start Date Active Vitamin D3 5,000 unit tablet RxNorm: 867122 1 Tablet(s) PO daily No Start Date Active erythromycin 250 mg capsule,delayed release RxNorm: 252726 1 Capsule(s) PO AC No Start Date Active Protonix 40 mg tablet,delayed release RxNorm: 110076 1 Tablet(s) PO BID No Start Date Active Cozaar 100 mg tablet RxNorm: 808110 1 Tablet(s) PO daily No Start Date 09/13/2016 Inactive sucralfate 1 gram tablet RxNorm: 607404 Tablet(s) PO QID No Start Date 12/15/2014 Inactive amiodarone 200 mg tablet RxNorm: 492215 2 Tablet(s) PO daily No Start Date 10/13/2015 Inactive buspirone 15 mg tablet RxNorm: 844768 1 Tablet(s) PO daily No Start Date 12/15/2014 Inactive potassium chloride ER 20 mEq tablet,extended release RxNorm: 047332 1 Tablet(s) PO daily No Start Date 10/12/2015 Inactive Prilosec 40 mg capsule,delayed release RxNorm: 192223 1 Capsule(s) PO daily No Start Date 09/02/2015 Inactive [place] 3 capsule RxNorm: Capsule(s) PO No Start Date 10/12/2015 Inactive alprazolam 0.25 mg tablet RxNorm: 476952 Tablet(s) PO QHS No Start Date 12/16/2014 Inactive levothyroxine 125 mcg tablet RxNorm: 533475 1 Tablet(s) PO daily No Start Date 12/23/2014 Inactive liothyronine 5 mcg tablet RxNorm: 707863 1 Tablet(s) PO BID No Start Date 07/21/2015 Inactive Mobic 15 mg tablet RxNorm: 310195 Tablet(s) PO daily No Start Date 05/19/2015 Inactive Norvasc 5 mg tablet RxNorm: 436408 1 Tablet(s) PO daily No Start Date 09/16/2015 Inactive Zofran 4 mg tablet RxNorm: 534495 1 Tablet(s) PO daily as needed No Start Date 05/19/2015 Inactive Tamiflu 75 mg capsule RxNorm: 801142 1 Capsule(s) PO BID No Start Date 07/23/2017 Inactive tramadol 50 mg tablet RxNorm: 910367 1 Tablet(s) PO daily as needed No Start Date 12/16/2014 Inactive amiodarone 200 mg tablet RxNorm: 305851 1 Tablet(s) PO daily No Start Date 10/12/2015 Inactive Zofran ODT 4 mg disintegrating tablet RxNorm: 656243 1 Tablet(s) PO TID as needed No Start Date 05/02/2017 Inactive albuterol sulfate 2.5 mg/3 mL (0.083 %) solution for nebulization RxNorm: 742999 3 Milliliter(s) INH Q6 PRN No Start Date 09/20/2017 Inactive meclizine 25 mg tablet RxNorm: 414629 Tablet(s) PO as needed No Start Date 05/24/2016 Inactive Pradaxa 150 mg capsule RxNorm: 3274220 1 Capsule(s) PO daily No Start Date 12/15/2014 Inactive metoprolol tartrate 50 mg tablet RxNorm: 527767 1/2 Tablet(s) PO No Start Date 12/15/2014 Inactive Aricept 10 mg tablet RxNorm: 125233 Tablet(s) PO daily No Start Date 05/19/2015 Inactive Calmoseptine 0.44 %-20.6 % topical ointment RxNorm: 676032 1 Application TOP BID and as needed to sore on buttocks No Start Date 09/06/2016 Inactive Zithromax Z-Henrique 250 mg tablet RxNorm: 611218 1 Tablet(s) PO UD No Start Date 11/09/2015 Inactive zpack x 1 Medication Administered Medication Codes Instructions Start Date Status cyanocobalamin (vit B-12) 1,000 mcg/mL injection solution RxNorm: 929026 Milliliter 07/04/2018 Active cyanocobalamin (vit B-12) 1,000 mcg/mL injection solution RxNorm: 408973 Milliliter 06/20/2018 No longer Active cyanocobalamin (vit B-12) 1,000 mcg/mL injection solution RxNorm: 206883 Milliliter 06/06/2018 No longer Active cyanocobalamin (vit B-12) 1,000 mcg/mL injection solution RxNorm: 834813 Milliliter 05/24/2018 No longer Active cyanocobalamin (vit B-12) 1,000 mcg/mL injection solution RxNorm: 758464 Milliliter 05/09/2018 No longer Active cyanocobalamin (vit B-12) 1,000 mcg/mL injection solution RxNorm: 945034 Milliliter 04/26/2018 No longer Active cyanocobalamin (vit B-12) 1,000 mcg/mL injection solution RxNorm: 933867 Milliliter 04/12/2018 No longer Active cyanocobalamin (vit B-12) 1,000 mcg/mL injection solution RxNorm: 834536 Milliliter 03/30/2018 No longer Active cyanocobalamin (vit B-12) 1,000 mcg/mL injection solution RxNorm: 192653 Milliliter 03/16/2018 No longer Active cyanocobalamin (vit B-12) 1,000 mcg/mL injection solution RxNorm: 593826 Milliliter 03/02/2018 No longer Active cyanocobalamin (vit B-12) 1,000 mcg/mL injection solution RxNorm: 562445 Milliliter 02/08/2018 No longer Active cyanocobalamin (vit B-12) 1,000 mcg/mL injection solution RxNorm: 239304 Milliliter 01/24/2018 No longer Active cyanocobalamin (vit B-12) 1,000 mcg/mL injection solution RxNorm: 902512 Milliliter 01/10/2018 No longer Active cyanocobalamin (vit B-12) 1,000 mcg/mL injection solution RxNorm: 852016 Milliliter 12/27/2017 No longer Active cyanocobalamin (vit B-12) 1,000 mcg/mL injection solution RxNorm: 869763 1Milliliter 12/12/2017 No longer Active cyanocobalamin (vit B-12) 1,000 mcg/mL injection solution RxNorm: 205381 Milliliter 12/01/2017 No longer Active cyanocobalamin (vit B-12) 1,000 mcg/mL injection solution RxNorm: 261003 1Milliliter 11/17/2017 No longer Active cyanocobalamin (vit B-12) 1,000 mcg/mL injection solution RxNorm: 043888 1Milliliter 11/02/2017 No longer Active cyanocobalamin (vit B-12) 1,000 mcg/mL injection solution RxNorm: 105218 1Milliliter 10/20/2017 No longer Active cyanocobalamin (vit B-12) 1,000 mcg/mL injection solution RxNorm: 994306 Milliliter 10/06/2017 No longer Active cyanocobalamin (vit B-12) 1,000 mcg/mL injection solution RxNorm: 897621 Milliliter 09/21/2017 No longer Active Kenalog 40 mg/mL suspension for injection RxNorm: 0404969 Milliliter 09/15/2017 No longer Active cyanocobalamin (vit B-12) 1,000 mcg/mL injection solution RxNorm: 225397 Milliliter 09/07/2017 No longer Active cyanocobalamin (vit B-12) 1,000 mcg/mL injection solution RxNorm: 389927 Milliliter 08/24/2017 No longer Active cyanocobalamin (vit B-12) 1,000 mcg/mL injection solution RxNorm: 233633 Milliliter 07/06/2017 No longer Active cyanocobalamin (vit B-12) 1,000 mcg/mL injection solution RxNorm: 385777 Milliliter 06/20/2017 No longer Active Kenalog 40 mg/mL suspension for injection RxNorm: 5375814 1Milliliter 06/20/2017 No longer Active cyanocobalamin (vit B-12) 1,000 mcg/mL injection solution RxNorm: 424004 Milliliter 06/05/2017 No longer Active cyanocobalamin (vit B-12) 1,000 mcg/mL injection solution RxNorm: 872870 Milliliter 05/25/2017 No longer Active cyanocobalamin (vit B-12) 1,000 mcg/mL injection solution RxNorm: 211893 Milliliter 05/16/2017 No longer Active cyanocobalamin (vit B-12) 1,000 mcg/mL injection solution RxNorm: 627561 1Milliliter 05/01/2017 No longer Active cyanocobalamin (vit B-12) 1,000 mcg/mL injection solution RxNorm: 092862 Milliliter 04/18/2017 No longer Active cyanocobalamin (vit B-12) 1,000 mcg/mL injection solution RxNorm: 522647 Milliliter 04/06/2017 No longer Active cyanocobalamin (vit B-12) 1,000 mcg/mL injection solution RxNorm: 739625 Milliliter 03/22/2017 No longer Active cyanocobalamin (vit B-12) 1,000 mcg/mL injection solution RxNorm: 035895 Milliliter 03/09/2017 No longer Active cyanocobalamin (vit B-12) 1,000 mcg/mL injection solution RxNorm: 058365 Milliliter 02/23/2017 No longer Active cyanocobalamin (vit B-12) 1,000 mcg/mL injection solution RxNorm: 477907 Milliliter 02/09/2017 No longer Active cyanocobalamin (vit B-12) 1,000 mcg/mL injection solution RxNorm: 304916 Milliliter 01/23/2017 No longer Active cyanocobalamin (vit B-12) 1,000 mcg/mL injection solution RxNorm: 348252 Milliliter 01/10/2017 No longer Active cyanocobalamin (vit B-12) 1,000 mcg/mL injection solution RxNorm: 240086 1Milliliter 12/28/2016 No longer Active cyanocobalamin (vit B-12) 1,000 mcg/mL injection solution RxNorm: 011275 Milliliter 12/14/2016 No longer Active cyanocobalamin (vit B-12) 1,000 mcg/mL injection solution RxNorm: 328386 Milliliter 11/24/2016 No longer Active cyanocobalamin (vit B-12) 1,000 mcg/mL injection solution RxNorm: 064374 1Milliliter 11/07/2016 No longer Active cyanocobalamin (vit B-12) 1,000 mcg/mL injection solution RxNorm: 728101 Milliliter 10/24/2016 No longer Active cyanocobalamin (vit B-12) 1,000 mcg/mL injection solution RxNorm: 625321 1Milliliter 09/29/2016 No longer Active cyanocobalamin (vit B-12) 1,000 mcg/mL injection solution RxNorm: 241884 Milliliter 08/29/2016 No longer Active cyanocobalamin (vit B-12) 1,000 mcg/mL injection solution RxNorm: 828961 Milliliter 08/04/2016 No longer Active cyanocobalamin (vit B-12) 1,000 mcg/mL injection solution RxNorm: 084091 Milliliter 07/21/2016 No longer Active cyanocobalamin (vit B-12) 1,000 mcg/mL injection solution RxNorm: 674048 1Milliliter 07/05/2016 No longer Active cyanocobalamin (vit B-12) 1,000 mcg/mL injection solution RxNorm: 277222 1Milliliter 06/22/2016 No longer Active cyanocobalamin (vit B-12) 1,000 mcg/mL injection solution RxNorm: 284529 Milliliter 06/09/2016 No longer Active cyanocobalamin (vit B-12) 1,000 mcg/mL injection solution RxNorm: 805582 1Milliliter 05/25/2016 No longer Active cyanocobalamin (vit B-12) 1,000 mcg/mL injection solution RxNorm: 239069 Milliliter 05/10/2016 No longer Active cyanocobalamin (vit B-12) 1,000 mcg/mL injection solution RxNorm: 855911 Milliliter 04/26/2016 No longer Active cyanocobalamin (vit B-12) 1,000 mcg/mL injection solution RxNorm: 157444 Milliliter 04/11/2016 No longer Active cyanocobalamin (vit B-12) 1,000 mcg/mL injection solution RxNorm: 571335 Milliliter 03/31/2016 No longer Active cyanocobalamin (vit B-12) 1,000 mcg/mL injection solution RxNorm: 511831 1Milliliter 03/15/2016 No longer Active cyanocobalamin (vit B-12) 1,000 mcg/mL injection solution RxNorm: 340351 Milliliter 02/25/2016 No longer Active cyanocobalamin (vit B-12) 1,000 mcg/mL injection solution RxNorm: 022586 1Milliliter 02/02/2016 No longer Active cyanocobalamin (vit B-12) 1,000 mcg/mL injection solution RxNorm: 075783 Milliliter 01/18/2016 No longer Active cyanocobalamin (vit B-12) 1,000 mcg/mL injection solution RxNorm: 318023 Milliliter 12/29/2015 No longer Active cyanocobalamin (vit B-12) 1,000 mcg/mL injection solution RxNorm: 386107 Milliliter 12/08/2015 No longer Active cyanocobalamin (vit B-12) 1,000 mcg/mL injection solution RxNorm: 299044 Milliliter 11/23/2015 No longer Active cyanocobalamin (vit B-12) 1,000 mcg/mL injection solution RxNorm: 155559 Milliliter 11/11/2015 No longer Active cyanocobalamin (vit B-12) 1,000 mcg/mL injection solution RxNorm: 054755 1Milliliter 10/29/2015 No longer Active cyanocobalamin (vit B-12) 1,000 mcg/mL injection solution RxNorm: 267044 1Milliliter 10/12/2015 No longer Active cyanocobalamin (vit B-12) 1,000 mcg/mL injection solution RxNorm: 278555 1Milliliter 09/29/2015 No longer Active cyanocobalamin (vit B-12) 1,000 mcg/mL injection solution RxNorm: 393474 1Milliliter 09/17/2015 No longer Active cyanocobalamin (vit B-12) 1,000 mcg/mL injection solution RxNorm: 345673 1Milliliter 09/03/2015 No longer Active cyanocobalamin (vit B-12) 1,000 mcg/mL injection solution RxNorm: 818220 Milliliter 08/17/2015 No longer Active cyanocobalamin (vit B-12) 1,000 mcg/mL injection solution RxNorm: 074200 Milliliter 08/06/2015 No longer Active cyanocobalamin (vit B-12) 1,000 mcg/mL injection solution RxNorm: 286016 Milliliter 07/22/2015 No longer Active cyanocobalamin (vit B-12) 1,000 mcg/mL injection solution RxNorm: 362614 Milliliter 07/08/2015 No longer Active cyanocobalamin (vit B-12) 1,000 mcg/mL injection solution RxNorm: 561440 Milliliter 06/23/2015 No longer Active cyanocobalamin (vit B-12) 1,000 mcg/mL injection solution RxNorm: 214671 1Milliliter 06/08/2015 No longer Active cyanocobalamin (vit B-12) 1,000 mcg/mL injection solution RxNorm: 532056 Milliliter 05/27/2015 No longer Active cyanocobalamin (vit B-12) 1,000 mcg/mL injection solution RxNorm: 986503 1Milliliter 05/12/2015 No longer Active cyanocobalamin (vit B-12) 1,000 mcg/mL injection kit RxNorm: 491219 kit 04/30/2015 No longer Active cyanocobalamin (vit B-12) 1,000 mcg/mL injection solution RxNorm: 708663 Milliliter 04/16/2015 No longer Active cyanocobalamin (vit B-12) 1,000 mcg/mL injection solution RxNorm: 570460 Milliliter 04/02/2015 No longer Active cyanocobalamin (vit B-12) 1,000 mcg/mL injection solution RxNorm: 643804 Milliliter 03/18/2015 No longer Active cyanocobalamin (vit B-12) 1,000 mcg/mL injection solution RxNorm: 372624 Milliliter 03/03/2015 No longer Active cyanocobalamin (vit B-12) 1,000 mcg/mL injection solution RxNorm: 598646 Milliliter 02/18/2015 No longer Active cyanocobalamin (vit B-12) 1,000 mcg/mL injection solution RxNorm: 801748 Milliliter 02/04/2015 No longer Active cyanocobalamin (vit B-12) 1,000 mcg/mL injection solution RxNorm: 589919 Milliliter 01/22/2015 No longer Active cyanocobalamin (vit B-12) 1,000 mcg/mL injection solution RxNorm: 674285 Milliliter 01/08/2015 No longer Active cyanocobalamin (vit B-12) 1,000 mcg/mL injection solution RxNorm: 403439 Milliliter 12/25/2014 No longer Active cyanocobalamin (vit B-12) 1,000 mcg/mL injection solution RxNorm: 687136 Milliliter 12/10/2014 No longer Active cyanocobalamin (vit B-12) 1,000 mcg/mL injection solution RxNorm: 927476 Milliliter 11/26/2014 No longer Active cyanocobalamin (vit B-12) 1,000 mcg/mL injection kit RxNorm: 970390 Milliliter 11/12/2014 No longer Active cyanocobalamin (vit B-12) 1,000 mcg/mL injection solution RxNorm: 290994 Milliliter 10/28/2014 No longer Active Immunizations Vaccine [...] (3rd IS) 3.20 uIU/mL 02/26/2018 Free T4 Xre975 FREE T4 0.99 ng/dL 02/26/2018 Cbc With [...] 28.5 pg 02/26/2018 Cbc With Differential Ord2 [place]% 10.3 % 02/26/2018 Cbc With Differential Ord2 [...] 1.80 K/ul 02/26/2018 Cbc With Differential Ord2 Moody ABS# 0.7 K/ul 02/26/2018 Cbc With Differential Ord2 Eos ABS# 0.2 K/ul 02/26/2018 Cbc With Differential Ord2 Baso ABS# 0.0 K/ul 02/26/2018 B12 Xhl227 B12 889.00 pg/ml 02/26/2018 Digoxin Ord9 DIGOXIN 0.7 NG/ML 11/23/2017 Comp Metabolic Xta246 NA 142 mEq/L 11/23/2017 Comp Metabolic Rpl679 K 4.9 mEq/L 11/23/2017 Comp Metabolic Wqq532 CL 112 mEq/L 11/23/2017 Comp Metabolic Nrv773 CO2 18.0 mEq/L 11/23/2017 Comp Metabolic Cwk634 ANION GAP 17 11/23/2017 Comp Metabolic Myn963 GLUCOSE 123 mg/dL 11/23/2017 Comp Metabolic Siy442 Creat 1.0 mg/dL 11/23/2017 Comp Metabolic Bcx651 eGFR 59 ml/min/1.73m2 11/23/2017 Comp Metabolic Gms727 BUN 24 mg/dL 11/23/2017 Comp Metabolic Ksp151 B/C Ratio 25.0 Ratio 11/23/2017 Comp Metabolic Tiz335 CALCIUM 9.4 mg/dL 11/23/2017 Comp Metabolic Jan624 ALK PHOS 56 U/L 11/23/2017 Comp Metabolic Kke607 AST(SGOT) 17 U/L 11/23/2017 Comp Metabolic Vta725 ALT(SGPT) 16 U/L 11/23/2017 Comp Metabolic Cgo213 BILI T 0.7 mg/dL 11/23/2017 Comp Metabolic Tdz089 ALBUMIN 3.8 g/dL 11/23/2017 Comp Metabolic Wfl142 TPRO 6.2 g/dL 11/23/2017 Comp Metabolic Yjg127 GLOB 2.4 g/dL 11/23/2017 Comp Metabolic Hxz116 A/G Ratio 1.6 Ratio 11/23/2017 Comp Metabolic Sta266 Osmo 289 mOsmo 11/23/2017 Free T4 Dkr299 FREE T4 1.04 ng/dL 11/23/2017 %Hba1C Hcu334 % HbA1c 58999- 6 6.4 % 11/23/2017 %Hba1C Ezl350 Gluc Ave 137 mg/dL 11/23/2017 Lipid Ord30 CHOL 179 mg/dL 11/23/2017 Lipid Ord30 HDL 51.0 mg/dl 11/23/2017 Lipid Ord30 TRIG 134 mg/dL 11/23/2017 Lipid Ord30 LDL 101 mg/dL 11/23/2017 Lipid Ord30 C/HDL 3.5 Ratio 11/23/2017 Tsh Ord6 TSH (3rd IS) 1.00 uIU/mL 11/23/2017 Microalbumin Toe999 MicroAlb <0.7 mg/dL 11/23/2017 Comp Metabolic Opj750 NA 141 mEq/L 01/23/2017 Comp Metabolic Weq335 K 4.5 mEq/L 01/23/2017 Comp Metabolic Hzk110 CL 107 mEq/L 01/23/2017 Comp Metabolic Ifx514 CO2 21.0 mEq/L 01/23/2017 Comp Metabolic Eqm520 ANION GAP 18 01/23/2017 Comp Metabolic Yue984 GLUCOSE 138 mg/dL 01/23/2017 Comp Metabolic Pnt041 Creat 1.0 mg/dL 01/23/2017 Comp Metabolic Yrj833 eGFR 56 ml/min/1.73m2 01/23/2017 Comp Metabolic Awh062 BUN 26 mg/dL 01/23/2017 Comp Metabolic Jwa323 B/C Ratio 25.7 Ratio 01/23/2017 Comp Metabolic Lhw749 CALCIUM 9.0 mg/dL 01/23/2017 Comp Metabolic Kxn390 ALK PHOS 37 U/L 01/23/2017 Comp Metabolic Qih484 AST(SGOT) 20 U/L 01/23/2017 Comp Metabolic Kqz519 ALT(SGPT) 25 U/L 01/23/2017 Comp Metabolic Bpz537 BILI T 0.9 mg/dL 01/23/2017 Comp Metabolic Eky280 ALBUMIN 3.8 g/dL 01/23/2017 Comp Metabolic Xqa858 TPRO 6.5 g/dL 01/23/2017 Comp Metabolic Ien389 GLOB 2.7 g/dL 01/23/2017 Comp Metabolic Vop825 A/G Ratio 1.4 Ratio 01/23/2017 Comp Metabolic Guy010 Osmo 288 mOsmo 01/23/2017 Free T4 Grl998 FREE T4 1.05 ng/dL 01/23/2017 %Hba1C Iwu994 % HbA1c 05958- 6 6.1 % 01/23/2017 %Hba1C Qot045 Gluc Ave 128 mg/dL 01/23/2017 Tsh Ord6 hTSH II 1.68 uIU/mL 01/23/2017 Culture Urine [id number] URINE CULTURE SEE NOTES 11/10/2016 Culture Urine [id number] Continued Results 11/10/2016 Urine Culture Ucult Complete [...] Ord15 CALCIUM 9.3 mg/dL 09/29/2016 Free T4 Bra377 FREE T4 0.99 ng/dL 09/07/2016 Cbc With [...] 30.0 pg 09/07/2016 Cbc With Differential Ord2 [place]% 9.8 % 09/07/2016 Cbc With Differential Ord2 [...] 1.75 K/ul 09/07/2016 Cbc With Differential Ord2 Moody ABS# 0.6 K/ul 09/07/2016 Cbc With Differential Ord2 Eos ABS# 0.1 K/ul 09/07/2016 Cbc With Differential Ord2 Baso ABS# 0.0 K/ul 09/07/2016 Tsh Ord6 hTSH II 1.41 uIU/mL 09/07/2016 Culture Urine [id number] URINE CULTURE SEE NOTES 06/27/2016 Lipid Ord30 CHOL 196 mg/dL 06/22/2016 Lipid Ord30 HDL 63.0 mg/dl 06/22/2016 Lipid Ord30 TRIG 154 mg/dL 06/22/2016 Lipid Ord30 LDL 102 mg/dL 06/22/2016 Lipid Ord30 C/HDL 3.1 Ratio 06/22/2016 Hepatic Ltc594 ALBUMIN 4.2 g/dL 06/22/2016 Hepatic Dzk817 TPRO 7.0 g/dL 06/22/2016 Hepatic Rgg148 GLOB 2.8 g/dL 06/22/2016 Hepatic Ztg735 A/G Ratio 1.5 Ratio 06/22/2016 Hepatic Hqp629 ALK PHOS 54 U/L 06/22/2016 Hepatic Kjr363 ALT(SGPT) 30 U/L 06/22/2016 Hepatic Fev919 AST(SGOT) 24 U/L 06/22/2016 Hepatic Nbh906 BILI T 1.1 mg/dL 06/22/2016 Hepatic Lrg401 BILI D 0.2 mg/dL 06/22/2016 Hepatic Flo263 BILI I 0.9 mg/dL 06/22/2016 Comp Metabolic Sgu563 NA 139 mEq/L 06/14/2016 Comp Metabolic Pal692 K 4.6 mEq/L 06/14/2016 Comp Metabolic Xcn346 CL 108 mEq/L 06/14/2016 Comp Metabolic Zev083 CO2 22.0 mEq/L 06/14/2016 Comp Metabolic Owx048 ANION GAP 14 06/14/2016 Comp Metabolic Iys347 GLUCOSE 114 mg/dL 06/14/2016 Comp Metabolic Edc395 Creat 1.2 mg/dL 06/14/2016 Comp Metabolic Fvp367 eGFR 48 ml/min/1.73m2 06/14/2016 Comp Metabolic Jaa141 BUN 24 mg/dL 06/14/2016 Comp Metabolic Dev061 B/C Ratio 20.9 Ratio 06/14/2016 Comp Metabolic Ugg344 CALCIUM 9.9 mg/dL 06/14/2016 Comp Metabolic Sgn424 ALK PHOS 47 U/L 06/14/2016 Comp Metabolic Dcx048 AST(SGOT) 28 U/L 06/14/2016 Comp Metabolic Qvp101 ALT(SGPT) 32 U/L 06/14/2016 Comp Metabolic Nrj929 BILI T 0.9 mg/dL 06/14/2016 Comp Metabolic Qru412 ALBUMIN 4.1 g/dL 06/14/2016 Comp Metabolic Pyl975 TPRO 6.9 g/dL 06/14/2016 Comp Metabolic Qul928 GLOB 2.8 g/dL 06/14/2016 Comp Metabolic Gnk316 A/G Ratio 1.5 Ratio 06/14/2016 Comp Metabolic Eru002 Osmo 282 mOsmo 06/14/2016 Tsh Ord6 hTSH II 1.26 uIU/mL 06/14/2016 Free T4 Chc003 FREE T4 1.09 ng/dL 06/14/2016 Tsh Ord6 hTSH II 0.28 uIU/mL 02/02/2016 Digoxin Ord9 DIGOXIN 0.7 NG/ML 02/02/2016 Free T4 Adg499 FREE T4 1.23 ng/dL 02/02/2016 Hepatic Ylf508 ALBUMIN 4.0 g/dL 02/02/2016 Hepatic Bmx976 TPRO 7.0 g/dL 02/02/2016 Hepatic Fdj851 GLOB 3.0 g/dL 02/02/2016 Hepatic Slr200 A/G Ratio 1.3 Ratio 02/02/2016 Hepatic Vxx642 ALK PHOS 57 U/L 02/02/2016 Hepatic Lsz959 ALT(SGPT) 62 U/L 02/02/2016 Hepatic Mdf880 AST(SGOT) 54 U/L 02/02/2016 Hepatic Oid161 BILI T 0.8 mg/dL 02/02/2016 Hepatic Qyt293 BILI D 0.2 mg/dL 02/02/2016 Hepatic Pzi445 BILI I 0.6 mg/dL 02/02/2016 Urine Culture Ucult Preliminary No Growth Day 1 11/25/2015 Urine Culture Ucult Complete No Growth Day 2 11/25/2015 Hepatic Vof158 ALBUMIN 3.9 g/dL 11/11/2015 Hepatic Fxk064 TPRO 7.0 g/dL 11/11/2015 Hepatic Mqj767 GLOB 3.1 g/dL 11/11/2015 Hepatic Jfq113 A/G Ratio 1.3 Ratio 11/11/2015 Hepatic Woz257 ALK PHOS 63 U/L 11/11/2015 Hepatic Nrg527 ALT(SGPT) 107 U/L 11/11/2015 Hepatic Klv223 AST(SGOT) 101 U/L 11/11/2015 Hepatic Cko387 BILI T 0.6 mg/dL 11/11/2015 Hepatic Hyz994 BILI D 0.1 mg/dL 11/11/2015 Hepatic Ovc427 BILI I 0.5 mg/dL 11/11/2015 Comp Metabolic Snb229 NA 138 mEq/L 10/29/2015 Comp Metabolic Adq521 K 5.0 mEq/L 10/29/2015 Comp Metabolic Tpm113 CL 105 mEq/L 10/29/2015 Comp Metabolic Zpk479 CO2 23.0 mEq/L 10/29/2015 Comp Metabolic Wro643 ANION GAP 15 10/29/2015 Comp Metabolic Diq105 GLUCOSE 105 mg/dL 10/29/2015 Comp Metabolic Ygj324 Creat 1.0 mg/dL 10/29/2015 Comp Metabolic Efq955 eGFR 55 ml/min/1.73m2 10/29/2015 Comp Metabolic Rlo505 BUN 20 mg/dL 10/29/2015 Comp Metabolic Jbu042 B/C Ratio 19.4 Ratio 10/29/2015 Comp Metabolic Bwd789 CALCIUM 8.8 mg/dL 10/29/2015 Comp Metabolic Tkb994 ALK PHOS 56 U/L 10/29/2015 Comp Metabolic Rrj874 AST(SGOT) 66 U/L 10/29/2015 Comp Metabolic Dbq792 ALT(SGPT) 78 U/L 10/29/2015 Comp Metabolic Iuy760 BILI T 0.7 mg/dL 10/29/2015 Comp Metabolic Bgl272 ALBUMIN 3.6 g/dL 10/29/2015 Comp Metabolic Bqh178 TPRO 6.6 g/dL 10/29/2015 Comp Metabolic Hsa934 GLOB 3.0 g/dL 10/29/2015 Comp Metabolic Uhj346 A/G Ratio 1.2 Ratio 10/29/2015 Comp Metabolic Ufm884 Osmo 279 mOsmo 10/29/2015 Comp Metabolic Tqi054 NA 136 mEq/L 09/03/2015 Comp Metabolic Yff163 K 4.4 mEq/L 09/03/2015 Comp Metabolic Rma582 CL 103 mEq/L 09/03/2015 Comp Metabolic Hja636 CO2 24.0 mEq/L 09/03/2015 Comp Metabolic Ewq893 ANION GAP 13 09/03/2015 Comp Metabolic Nsw057 GLUCOSE 87 mg/dL 09/03/2015 Comp Metabolic Lwr349 Creat 1.1 mg/dL 09/03/2015 Comp Metabolic Bye952 eGFR 53 ml/min/1.73m2 09/03/2015 Comp Metabolic Xes387 BUN 17 mg/dL 09/03/2015 Comp Metabolic Pyy758 B/C Ratio 16.2 Ratio 09/03/2015 Comp Metabolic Rwv165 CALCIUM 9.0 mg/dL 09/03/2015 Comp Metabolic Yas969 ALK PHOS 55 U/L 09/03/2015 Comp Metabolic Sso827 AST(SGOT) 83 U/L 09/03/2015 Comp Metabolic Kbh881 ALT(SGPT) 126 U/L 09/03/2015 Comp Metabolic Dvv459 BILI T 0.9 mg/dL 09/03/2015 Comp Metabolic Tad243 ALBUMIN 3.9 g/dL 09/03/2015 Comp Metabolic Pzf746 TPRO 6.8 g/dL 09/03/2015 Comp Metabolic Kwx051 GLOB 2.9 g/dL 09/03/2015 Comp Metabolic Ymq306 A/G Ratio 1.4 Ratio 09/03/2015 Comp Metabolic Bdk873 Osmo 273 mOsmo 09/03/2015 Total T3 Ord42 TT3 0.6 ng/ml 07/09/2015 Tsh Ord6 hTSH II 1.62 uIU/mL 07/09/2015 Total T3 Ord42 TT3 0.5 ng/ml 04/02/2015 Free T4 Wbq850 FREE T4 1.23 ng/dL 04/02/2015 Tsh Ord6 [...] distress 12/16/2014 None Procedures Procedure Codes Date VITAMIN B12 INJECTION CPT- 4: J3420 07/04/2018 THER/PROPH/DIAG INJ SC/IM CPT-4: 00231 06/20/2018 THER/PROPH/DIAG INJ SC/IM CPT-4: 28910 06/06/2018 VITAMIN B12 INJECTION CPT- 4: J3420 06/06/2018 THER/PROPH/DIAG INJ SC/IM CPT-4: 31536 05/24/2018 THER/PROPH/DIAG INJ SC/IM CPT-4: 27123 05/09/2018 THER/PROPH/DIAG INJ SC/IM CPT-4: 13888 04/26/2018 VITAMIN B12 INJECTION CPT- 4: J3420 04/26/2018 THER/PROPH/DIAG INJ SC/IM CPT-4: 67743 04/12/2018 THER/PROPH/DIAG INJ SC/IM CPT-4: 69419 03/30/2018 THER/PROPH/DIAG INJ SC/IM CPT-4: 14012 03/16/2018 VITAMIN B12 INJECTION CPT- 4: J3420 03/16/2018 ADMIN INFLUENZA VIRUS VAC CPT-4: G0008 03/16/2018 FLU VACC PRSV FREE INC ANTIG Formatting Model/CDA Sections, Assigned to/Nga Ojeda CPT-4: 08752Gpffuld 03/16/2018 THER/PROPH/DIAG INJ SC/IM CPT-4: 30197 03/02/2018 THER/PROPH/DIAG INJ SC/IM CPT-4: 88238 02/08/2018 THER/PROPH/DIAG INJ SC/IM CPT-4: 93568 01/24/2018 THER/PROPH/DIAG INJ SC/IM CPT-4: 99561 01/10/2018 THER/PROPH/DIAG INJ SC/IM CPT-4: 51323 12/27/2017 VITAMIN B12 INJECTION CPT- 4: J3420 12/27/2017 THER/PROPH/DIAG INJ SC/IM CPT-4: 65996 12/12/2017 THER/PROPH/DIAG INJ SC/IM CPT-4: 30729 12/01/2017 VITAMIN B12 INJECTION CPT- 4: J3420 12/01/2017 THER/PROPH/DIAG INJ SC/IM CPT-4: 55416 11/17/2017 THER/PROPH/DIAG INJ SC/IM CPT-4: 29090 11/02/2017 THER/PROPH/DIAG INJ SC/IM CPT-4: 15879 10/20/2017 THER/PROPH/DIAG INJ SC/IM CPT-4: 64939 10/06/2017 THER/PROPH/DIAG INJ SC/IM CPT-4: 97753 09/21/2017 TRIAMCINOLONE ACET INJ NOS CPT-4: J3301 09/15/2017 THER/PROPH/DIAG INJ SC/IM CPT-4: 58341 09/07/2017 THER/PROPH/DIAG INJ SC/IM CPT-4: 98705 08/24/2017 THER/PROPH/DIAG INJ SC/IM CPT-4: 35487 07/06/2017 THER/PROPH/DIAG INJ SC/IM CPT-4: 62598 06/20/2017 TRIAMCINOLONE ACET INJ NOS CPT-4: J3301 06/20/2017 PPPS, SUBSEQ VISIT CPT- 4: G0439 06/05/2017 THER/PROPH/DIAG INJ SC/IM CPT-4: 63438 06/05/2017 THER/PROPH/DIAG INJ SC/IM CPT-4: 11583 05/25/2017 VITAMIN B12 INJECTION CPT- 4: J3420 05/25/2017 THER/PROPH/DIAG INJ SC/IM CPT-4: 03585 05/16/2017 THER/PROPH/DIAG INJ SC/IM CPT-4: 15622 05/01/2017 THER/PROPH/DIAG INJ SC/IM CPT-4: 77164 04/18/2017 THER/PROPH/DIAG INJ SC/IM CPT-4: 13983 04/06/2017 ADMIN INFLUENZA VIRUS VAC CPT-4: G0008 03/22/2017 FLU VACC PRSV FREE INC ANTIG CPT-4: 43621 03/22/2017 THER/PROPH/DIAG INJ SC/IM CPT-4: 72122 03/09/2017 THER/PROPH/DIAG INJ SC/IM CPT-4: 37558 02/23/2017 THER/PROPH/DIAG INJ SC/IM CPT-4: 34107 02/09/2017 THER/PROPH/DIAG INJ SC/IM CPT-4: 09461 01/23/2017 THER/PROPH/DIAG INJ SC/IM CPT-4: 33802 01/10/2017 THER/PROPH/DIAG INJ SC/IM CPT-4: 77772 12/28/2016 THER/PROPH/DIAG INJ SC/IM CPT-4: 61702 12/14/2016 THER/PROPH/DIAG INJ SC/IM CPT-4: 77562 11/24/2016 URINALYSIS NONAUTO W/O SCOPE CPT-4: 10137 11/07/2016 THER/PROPH/DIAG INJ SC/IM CPT-4: 55704 11/07/2016 THER/PROPH/DIAG INJ SC/IM CPT-4: 62285 10/24/2016 THER/PROPH/DIAG INJ SC/IM CPT-4: 50659 09/29/2016 THER/PROPH/DIAG INJ SC/IM CPT-4: 25732 08/29/2016 THER/PROPH/DIAG INJ SC/IM CPT-4: 87442 08/04/2016 THER/PROPH/DIAG INJ SC/IM CPT-4: 67699 07/21/2016 THER/PROPH/DIAG INJ SC/IM CPT-4: 17190 07/05/2016 THER/PROPH/DIAG INJ SC/IM CPT-4: 79277 06/22/2016 URINALYSIS NONAUTO W/O SCOPE CPT-4: 39232 06/22/2016 THER/PROPH/DIAG INJ SC/IM CPT-4: 04655 06/09/2016 PPPS, SUBSEQ VISIT CPT- 4: G0439 05/30/2016 ADMIN PNEUMOCOCCAL VACCINE SNOMED CT: 88445309 CPT-4: G0009 05/25/2016 Pneumococcal Polysaccharide Vaccine, 23-Valent, Ad CPT-4: 40240 05/25/2016 THER/PROPH/DIAG INJ SC/IM CPT-4: 38965 05/25/2016 THER/PROPH/DIAG INJ SC/IM CPT-4: 79237 05/10/2016 TRIAMCINOLONE ACET INJ NOS CPT-4: J3301 04/26/2016 VITAMIN B12 INJECTION CPT- 4: J3420 04/26/2016 THER/PROPH/DIAG INJ SC/IM CPT-4: 88557 04/11/2016 THER/PROPH/DIAG INJ SC/IM CPT-4: 59157 03/31/2016 ADMIN INFLUENZA VIRUS VAC CPT-4: G0008 03/15/2016 FLU VACC 4 STEPHANIE [address] YRS PLUS IM SNOMED CT: 77717686 CPT-4: 90402 03/15/2016 THER/PROPH/DIAG INJ SC/IM CPT-4: 76033 02/25/2016 THER/PROPH/DIAG INJ SC/IM CPT-4: 32834 02/02/2016 THER/PROPH/DIAG INJ SC/IM CPT-4: 14734 01/18/2016 VITAMIN B12 INJECTION CPT- 4: J3420 12/29/2015 THER/PROPH/DIAG INJ SC/IM CPT-4: 66843 12/29/2015 THER/PROPH/DIAG INJ SC/IM CPT-4: 51261 12/08/2015 THER/PROPH/DIAG INJ SC/IM CPT-4: 84603 11/23/2015 URINALYSIS NONAUTO W/O SCOPE CPT-4: 89382 11/23/2015 THER/PROPH/DIAG INJ SC/IM CPT-4: 32431 11/11/2015 THER/PROPH/DIAG INJ SC/IM CPT-4: 69546 10/29/2015 THER/PROPH/DIAG INJ SC/IM CPT-4: 48495 10/12/2015 VITAMIN B12 INJECTION CPT- 4: J3420 10/12/2015 THER/PROPH/DIAG INJ SC/IM CPT-4: 98992 09/29/2015 THER/PROPH/DIAG INJ SC/IM CPT-4: 97485 09/17/2015 THER/PROPH/DIAG INJ SC/IM CPT-4: 90681 09/03/2015 THER/PROPH/DIAG INJ SC/IM CPT-4: 20138 08/17/2015 THER/PROPH/DIAG INJ SC/IM CPT-4: 78292 08/06/2015 THER/PROPH/DIAG INJ SC/IM CPT-4: 80059 07/22/2015 THER/PROPH/DIAG INJ SC/IM CPT-4: 14134 07/08/2015 THER/PROPH/DIAG INJ SC/IM CPT-4: 65443 06/23/2015 THER/PROPH/DIAG INJ SC/IM CPT-4: 42457 06/08/2015 THER/PROPH/DIAG INJ SC/IM CPT-4: 04625 05/27/2015 DESTRUCT PREMALG LESION CPT-4: 12577 05/19/2015 DESTRUCT PREMALG LES 2-14 CPT-4: 95147 05/19/2015 THER/PROPH/DIAG INJ SC/IM CPT-4: 03266 05/12/2015 VITAMIN B12 INJECTION CPT- 4: J3420 05/12/2015 THER/PROPH/DIAG INJ SC/IM CPT-4: 87455 04/30/2015 VITAMIN B12 INJECTION CPT- 4: J3420 04/30/2015 THER/PROPH/DIAG INJ SC/IM CPT-4: 75429 04/16/2015 THER/PROPH/DIAG INJ SC/IM CPT-4: 68988 04/02/2015 VITAMIN B12 INJECTION CPT- 4: J3420 04/02/2015 THER/PROPH/DIAG INJ SC/IM CPT-4: 48096 03/18/2015 THER/PROPH/DIAG INJ SC/IM CPT-4: 35475 03/03/2015 THER/PROPH/DIAG INJ SC/IM CPT-4: 44251 02/18/2015 THER/PROPH/DIAG INJ SC/IM CPT-4: 99506 02/04/2015 VITAMIN B12 INJECTION CPT- 4: J3420 02/04/2015 THER/PROPH/DIAG INJ SC/IM CPT-4: 62671 01/22/2015 THER/PROPH/DIAG INJ SC/IM CPT-4: 80212 01/08/2015 VITAMIN B12 INJECTION CPT- 4: J3420 01/08/2015 THER/PROPH/DIAG INJ SC/IM CPT-4: 41770 12/25/2014 VITAMIN B12 INJECTION CPT- 4: J3420 12/25/2014 THER/PROPH/DIAG INJ SC/IM CPT-4: 45640 12/10/2014 VITAMIN B12 INJECTION CPT- 4: J3420 12/10/2014 THER/PROPH/DIAG INJ SC/IM CPT-4: 83278 11/26/2014 VITAMIN B12 INJECTION CPT- 4: J3420 11/26/2014 THER/PROPH/DIAG INJ SC/IM CPT-4: 75239 11/12/2014 VITAMIN B12 INJECTION CPT- 4: J3420 11/12/2014 THER/PROPH/DIAG INJ SC/IM CPT-4: 00139 10/28/2014 Vital Signs Date Vital 05/03/2018 Blood Pressure 1: 140/70 Code: 8480-6 BMI: 26.0 Code: 16264-1 Heart Rate 1: 70 bpm Height: 5'6" SpO2: 94% Weight: 161 lbs 04/26/2018 Height: 5'6" 02/26/2018 Blood Pressure 1: 130/72 Code: 8480-6 BMI: 27.9 Code: 70970-0 Heart Rate 1: 72 bpm Height: 5'6" SpO2: 93% Weight: 173 lbs 12/12/2017 Blood Pressure 1: 126/74 Code: 8480-6 BMI: 27.4 Code: 53208-1 Heart Rate 1: 83 bpm Height: 5'6" SpO2: 98% Weight: 170 lbs 12/04/2017 Blood Pressure 1: 104/68 Code: 8480-6 BMI: 28.2 Code: 10338-7 Heart Rate 1: 85 bpm Height: 5'6" SpO2: 95% Weight: 175 lbs 11/20/2017 Blood Pressure 1: 130/68 Code: 8480-6 BMI: 28.4 Code: 48139-7 Heart Rate 1: 80 bpm Height: 5'6" SpO2: 99% Weight: 176 lbs 11/02/2017 Height: 5'6" 09/15/2017 Blood Pressure 1: 134/74 Code: 8480-6 BMI: 28.4 Code: 66946-4 Heart Rate 1: 88 bpm Height: 5'6" SpO2: 98% Weight: 176 lbs 09/07/2017 Blood Pressure 1: 124/64 Code: 8480-6 Heart Rate 1: 90 bpm Height: SpO2: 97% Weight: 08/30/2017 Blood Pressure 1: 140/76 Code: 8480-6 BMI: 28.4 Code: 75475-8 Heart Rate 1: 90 bpm Height: 5'6" SpO2: 94% Weight: 176 lbs 07/06/2017 Blood Pressure 1: 132/66 Code: 8480-6 BMI: 29.4 Code: 37614-2 Heart Rate 1: 85 bpm Height: 5'6" SpO2: 97% Weight: 182 lbs 06/20/2017 Blood Pressure 1: 134/86 Code: 8480-6 Heart Rate 1: 90 bpm Height: SpO2: 98% Weight: 06/05/2017 BMI: 29.1 Code: 12945-4 Height: 5'6" Weight: 180 lbs 05/25/2017 Blood Pressure 1: 126/76 Code: 8480-6 BMI: 29.1 Code: 02694-5 Heart Rate 1: 77 bpm Height: 5'6" SpO2: 97% Weight: 180 lbs 03/23/2017 Blood Pressure 1: 142/84 Code: 8480-6 BMI: 29.1 Code: 83317-5 Heart Rate 1: 91 bpm Height: 5'6" SpO2: 97% Weight: 180 lbs 01/23/2017 Blood Pressure 1: 150/90 Code: 8480-6 BMI: 29.9 Code: 11886-4 Heart Rate 1: 81 bpm Height: 5'6" SpO2: 97% Weight: 185 lbs 11/02/2016 Blood Pressure 1: 148/78 Code: 8480-6 BMI: 29.7 Code: 27461-4 Heart Rate 1: 87 bpm Height: 5'6" SpO2: 97% Weight: 184 lbs 09/29/2016 Blood Pressure 1: 128/78 Code: 8480-6 BMI: 29.7 Code: 84914-0 Heart Rate 1: 78 bpm Height: 5'6" SpO2: 98% Weight: 184 lbs 07/26/2016 Blood Pressure 1: 138/72 Code: 8480-6 BMI: 30.0 Code: 59600-1 Heart Rate 1: 85 bpm Height: 5'6" SpO2: 97% Weight: 186 lbs 05/30/2016 Blood Pressure 1: 132/76 Code: 8480-6 BMI: 30.0 Code: 07548-3 Heart Rate 1: 80 bpm Height: 5'6" SpO2: 98% Waist Measure (cm): 99 cm Weight: 186 lbs 05/25/2016 Blood Pressure 1: 132/76 Code: 8480-6 BMI: 30.0 Code: 45050-9 Heart Rate 1: 80 bpm Height: 5'6" SpO2: 96% Weight: 186 lbs 02/25/2016 Blood Pressure 1: 110/64 Code: 8480-6 Heart Rate 1: 82 bpm Height: SpO2: 96% Weight: 01/25/2016 Blood Pressure 1: 118/70 Code: 8480-6 BMI: 30.0 Code: 91993-6 Heart Rate 1: 78 bpm Height: 5'6" SpO2: 97% Weight: 186 lbs 11/11/2015 Blood Pressure 1: 128/82 Code: 8480-6 BMI: 29.2 Code: 60749-6 Heart Rate 1: 86 bpm Height: 5'6" SpO2: 96% Temperature: 36.4 (C) / 97.6 (F) Weight: 181 lbs 10/12/2015 Blood Pressure 1: 118/70 Code: 8480-6 BMI: 29.2 Code: 40882-7 Heart Rate 1: 81 bpm Height: 5'6" SpO2: 95% Weight: 181 lbs 09/03/2015 Blood Pressure 1: 138/78 Code: 8480-6 BMI: 29.9 Code: 96209-4 Heart Rate 1: 88 bpm Height: 5'6" SpO2: 97% Weight: 185 lbs 05/19/2015 Blood Pressure 1: 146/78 Code: 8480-6 BMI: 30.0 Code: 45783-2 Heart Rate 1: 66 bpm Height: 5'6" SpO2: 97% Weight: 186 lbs 05/12/2015 Blood Pressure 1: 120/70 Code: 8480-6 BMI: 29.9 Code: 27615-9 Heart Rate 1: 89 bpm Height: 5'6" SpO2: 95% Weight: 185 lbs 01/13/2015 Blood Pressure 1: 140/90 Code: 8480-6 BMI: 30.3 Code: 47371-7 Heart Rate 1: 84 bpm Height: 5'6" SpO2: 95% Weight: 188 lbs 12/16/2014 Blood Pressure 1: 140/82 Code: 8480-6 BMI: 29.5 Code: 98660-1 Heart Rate 1: 86 bpm Height: 5'6" [...] data Encounters Encounter Performer Location Codes Date () [id number] EST. PATIENT, LEVEL IV Diagnosis: Essential (primary) hypertension[ICD10: I10] Diagnosis: Type 2 diabetes mellitus without complications[ICD10: E11.9] Yarely Vega MD, [facility] CPT-4: 62158 05/03/2018 ([id number]) 62017 EST. PATIENT, LEVEL III Diagnosis: Pain in left shoulder[ICD10: M25.512] Diagnosis: Pain in right shoulder[ICD10: M25.511] Yarely Vega MD, [facility] CPT-4: 38009 02/26/2018 ([id number]) 82411 EST. PATIENT, LEVEL III Diagnosis: Nausea[ICD10: R11.0] Diagnosis: Cough[ICD10: R05] Diagnosis: 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 factor deficiency[ICD10: D51.0] Janet Vega MD, [facility] CPT-4: 67810 12/12/2017 ([id number]) 17080 EST. PATIENT, LEVEL IV Diagnosis: Acute bronchitis due to Hemophilus influenzae[ICD10: J20.1] Diagnosis: Cough[ICD10: R05] Yarely Vega MD, [facility] CPT-4: 25960 12/04/2017 [id number] EST. PATIENT, LEVEL IV Diagnosis: Essential (primary) hypertension[ICD10: I10] Diagnosis: Cough[ICD10: R05] Diagnosis: Chronic atrial fibrillation[ICD10: I48.2] Yarely Vega MD, [facility] CPT-4: 25315 11/20/2017 ([id number]) 76873 EST. PATIENT, LEVEL III Diagnosis: Cough[ICD10: R05] Diagnosis: Acute upper respiratory infection, unspecified[ICD10: J06.9] Janet Vega MD, [facility] CPT-4: 78882 09/15/2017 [id number] EST. PATIENT, LEVEL III Diagnosis: Laceration without foreign body of right forearm, initial encounter[ICD10: S51.811A] Diagnosis: Other vitamin B12 deficiency anemias[ICD10: D51.8] Brianna Vega MD, [facility] CPT-4: 19602 09/07/2017 ([id number]) 73255 EST. PATIENT, LEVEL IV Diagnosis: Chronic atrial fibrillation[ICD10: I48.2] Diagnosis: Other allergic rhinitis[ICD10: J30.89] Diagnosis: Encounter for therapeutic drug level monitoring[ICD10: Z51.81] Yarely Vega MD, [facility] CPT-4: 21887 08/30/2017 ([id number]) 91373 EST. PATIENT, LEVEL IV Diagnosis: Atrophy of thyroid (acquired)[ICD10: E03.4] Diagnosis: Cough[ICD10: R05] Diagnosis: Laceration without foreign body of left forearm, initial encounter[ICD10: S51.812A] Diagnosis: Candidiasis of skin and nail[ICD10: B37.2] Diagnosis: Other vitamin B12 deficiency anemias[ICD10: D51.8] Diagnosis: Slow transit constipation[ICD10: K59.01] Yarely Vega MD, [facility] CPT-4: 54428 07/06/2017 33513 EST. PATIENT, LEVEL III Diagnosis: Other vitamin B12 deficiency anemias[ICD10: D51.8] Diagnosis: Acute laryngopharyngitis[ICD10: J06.0] Diagnosis: Other allergic rhinitis[ICD10: J30.89] Brianna Vega MD, [facility] CPT- 4: 17947 06/20/2017 ([id number]) 67596 EST. PATIENT, LEVEL IV Diagnosis: Essential (primary) hypertension[ICD10: I10] Diagnosis: Chronic atrial fibrillation[ICD10: I48.2] Diagnosis: Atrophy of thyroid (acquired)[ICD10: E03.4] Diagnosis: 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 factor deficiency[ICD10: D51.0] Yarely Vega MD, [facility] CPT-4: 94445 05/25/2017 ([id number]) 61344 EST. 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 PATIENT, LEVEL IV Diagnosis: Type 2 diabetes mellitus without complications[ICD10: E11.9] Diagnosis: Essential (primary) hypertension[ICD10: I10] Diagnosis: Headache[ICD10: R51] Diagnosis: Atrophy of thyroid (acquired)[ICD10: E03.4] Diagnosis: Vitamin B12 deficiency anemia, unspecified[ICD10: D51.9] Yarely Vega MD, [facility] CPT-4: 89637 01/23/2017 33400 EST. PATIENT, LEVEL III Diagnosis: Low back pain[ICD10: M54.5] Diagnosis: Pain in thoracic spine[ICD10: M54.6] Brianna Vega MD, [facility] CPT- 4: 52517 11/02/2016 ([id number]) 09533 EST. PATIENT, LEVEL IV Diagnosis: Essential (primary) hypertension[ICD10: I10] Diagnosis: Other vitamin B12 deficiency anemias[ICD10: D51.8] Diagnosis: Generalized abdominal pain[ICD10: R10.84] Yarely Vega MD, [facility] CPT-4: 38248 09/29/2016 ([id number]) 69903 EST. PATIENT, LEVEL IV Diagnosis: Essential (primary) hypertension[ICD10: I10] Yarely Vega MD, [facility] CPT-4: 67828 07/26/2016 ([id number]) 44778 EST. PATIENT, LEVEL IV Diagnosis: Benign lipomatous neoplasm of skin and subcutaneous tissue of right leg[ICD10: D17.23] Diagnosis: Pain in right ankle and joints of right foot[ICD10: M25.571] Diagnosis: Encounter for immunization[ICD10: Z23] Diagnosis: Vitamin B12 deficiency anemia, unspecified[ICD10: D51.9] Yarely Vega MD, [facility] CPT-4: 64497 05/25/2016 07045 EST. PATIENT, LEVEL III Diagnosis: Other chest pain[ICD10: R07.89] Diagnosis: Other vitamin B12 deficiency anemias[ICD10: D51.8] Brianna Vega MD, [facility] CPT-4: 34603 02/25/2016 ([id number]) 47631 EST. 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 PATIENT, LEVEL III Diagnosis: Other vitamin B12 deficiency anemias[ICD10: D51.8] Diagnosis: Acute nasopharyngitis [common cold][ICD10: J00] Diagnosis: Other allergic rhinitis[ICD10: J30.89] Brianna Vega MD, [facility] CPT- 4: 95782 11/11/2015 ([id number]) 60692 EST. PATIENT, LEVEL IV Diagnosis: Essential tremor[ICD10: G25.0] Diagnosis: Chronic fatigue, unspecified[ICD10: R53.82] Diagnosis: Other hypersomnia[ICD10: G47.19] Diagnosis: Essential (primary) hypertension[ICD10: I10] Yarely Vega MD, [facility] CPT-4: 56128 10/12/2015 ([id number]) 41552 EST. PATIENT, LEVEL IV Diagnosis: Essential (primary) hypertension[ICD10: I10] Diagnosis: Chronic atrial fibrillation[ICD10: I48.2] Diagnosis: Abnormal levels of other serum enzymes[ICD10: R74.8] Diagnosis: Type 2 diabetes mellitus without complications[ICD10: E11.9] Diagnosis: Vitamin B12 deficiency anemia, unspecified[ICD10: D51.9] Yarely Vega MD, [facility] CPT-4: 90327 09/03/2015 ([id number]) 90293 EST. PATIENT, LEVEL III Diagnosis: Nausea[ICD10: R11.0] Diagnosis: Essential tremor[ICD10: G25.0] Diagnosis: Actinic keratosis[ICD10: L57.0] Yarely Vega MD, [facility] CPT-4: 89873 05/19/2015 ([id number] 05089 EST. PATIENT, LEVEL IV Diagnosis: Vitamin B12 deficiency anemia, unspecified[ICD10: D51.9] Diagnosis: Chronic atrial fibrillation[ICD10: I48.2] Diagnosis: Headache[ICD10: R51] Diagnosis: Chronic fatigue, unspecified[ICD10: R53.82] Diagnosis: Cervicalgia[ICD10: M54.2] Yarely Vega MD, [facility] CPT-4: 24678 05/12/2015 ([id number] EST. PATIENT, LEVEL IV Diagnosis: ESSENTIAL HYPERTENSION[ICD9: 401.9] Diagnosis: Afib[ICD9: 427.31] Diagnosis: Anxiety[ICD9: 300.00] Diagnosis: Insomnia[ICD9: 780.52] Yarely Vega MD, [facility] CPT-4: 95707 01/13/2015 ([id number]) OFFICE VISIT, NEW - LEVEL 4 Diagnosis: Hypothyroidism[ICD9: 244.9] Diagnosis: DIABETES TYPE II[ICD9: 250.00] Diagnosis: ESSENTIAL HYPERTENSION[ICD9: 401.9] Diagnosis: Afib[ICD9: 427.31] Diagnosis: Anxiety[ICD9: 300.00] Diagnosis: B12 deficiency[ICD9: 266.2] Janet Vega MD, [facility] CPT-4: 42091 12/16/2014 Plan of Care Planned Activity Notes Codes Status Date Patient Education: Patient Medication Summary Completed 07/04/2018 Appointment: Injection 06/20/2018 Patient Education: Patient Medication Summary Completed 06/20/2018 Appointment: Yarely Vega WPtel: [facility] [place] [place] (30 min) Complex 06/07/2018 Appointment: Injection 06/06/2018 Patient Education: Patient Medication Summary Completed 06/06/2018 Appointment: [facility] [phone] [facility] (15 min) Moderate 05/31/2018 Appointment: Injection [...] post-nasal drainage - restart flonase 05/03/2018 Appointment: a[phone] [facility] (15 min) Moderate 05/03/2018 Patient Education: [...] surgical intervention. 02/26/2018 App[facility]ment: [phone] [facility] (15 min) Moderate 02/26/2018 Patient Education: Patient Medication Summary Completed 02/26/2018 Care Plan: Referral Order SNOMED-CT : [id number] Pending 02/26/2018 Appointment: Injection 02/08/2018 Patient Education: Patient Medication Summary Completed 02/08/2018 Appointment: Injection 01/24/2018 Patient Education: Patient Medication Summary Completed 01/24/2018 Appointment: Injection 01/10/2018 Patient Education: Patient Medication Summary Completed 01/10/2018 Appointment: Injection 12/27/2017 Patient Education: Patient Medication Summary Completed 12/27/2017 Appointment: Yarely Vega WPtel: [phone] [facility] (15 min) Moderate 12/26/2017 Visit Plan: Ziolaf-snquyzzte-zwpabgix protonix-follow up with Dr Navarro as scheduled Cough-recent bronchitis-symptoms improved-call if symptoms do not completely resolve 12/12/2017 Appointment: Janet Fam WPtel: [phone] [phone] (15 min) Moderate 12/12/2017 Patient Education: Patient Medication Summary Completed 12/12/2017 Visit Plan: Bronchitis - acute case of bronchitis identified. Pt has been given antibiotics, breathing treatments as appropriate, and pt has been instructed to call if symptoms are not improved, or if symptoms acutely worsen. Cough - rx for antibiotics as well as cough medication. 12/04/2017 Appointment: Yarely Vega WPtel: [phone] [facility] (15 min) Moderate 12/04/2017 Patient [...] Fatigue/malaise -Pt was advsied to ask the [employer] Spot[employer] the following: ask the heart doctor if [...] becoming uncontrolled. 11/20/2017 Appointment: Yarely Vega WPtel: [facility] [place] [place] (15 min) Moderate 11/20/2017 [...] any worse. 09/15/2017 Appointment: Janet Fam WPtel: [facility] [phone] [place] (15 min) Moderate 09/15/2017 Patient Education: Patient Medication Summary Completed 09/15/2017 Appointment: Yarely Vega WPtel: [facility] [place] [place] (15 min) Moderate 09/11/2017 Visit Plan: Skin tear and Cellulitis - The patient was instructed in appropriate wound care. The patient was instructed to use the antibiotic ointment as per RX. The patient is to call for any change in symptoms, increase in size of the lesion, increase in pain, worsening redness, warmth, discharge. 09/07/2017 Appointment: Brianna Otoole WPtel: [phone] [facility] [place] (10 min) Simple 09/07/2017 Patient Education: Patient Medication Summary Completed 09/07/2017 Visit Plan: Lipoma - left ankle - talk to dr. barnes about possible surgery/laser for treatment of lipoma. Fatigue/malaise -Pt was advsied to ask the Car Spotter the following: ask the heart doctor if there is an alternative to the amiodarone - you may be having side effects from the medication causing you to have pruritus (itching) and feeling like you have body aches, muscle aches, joint pain, fatigue, weight loss (decreased appetite), and pneumonia like symptoms. Congestion - claritin 10mg daily. 08/30/2017 Appointment: [phone] [facility] [place] (15 min) Moderate 08/30/2017 Patient Education: Patient Medication Summary Completed 08/30/2017 Appointment: Injection 08/24/2017 Appointment: [facility] [phone] [facility] [place] (15 min) Moderate 08/24/2017 Patient [...] and mucinex 07/06/2017 Appointment: Yarely Vega WPtel: [facility] [place] [place] (15 min) Moderate 07/06/2017 Patient [...] spray. 06/20/2017 Appointment: Bri[facility] Otoole [facility]el: [phone] [facility] (15 min) Moderate 06/20/2017 Patient Education: Patient [...] Appointment: Bucky 06/05/2017 Appointment: Brianna Otoole WPtel: [phone] [facility] [place] [facility] - Annual Wellness Visit 06/05/2017 [...] q 3 months or q 6 m [facility] based on previous levels of control. 05/25/2017 Appointment: [facility]el[facility] [phone] [facility] (15 min) Moderate 05/25/2017 Patient Education: [...] wall. Fatigue - pt to discuss with Car Spotter about the possibility of amiodarone causing her fatigue/malaise. 03/23/2017 Appointment: [facility]el[facility] [phone] [facility] (15 min) Moderate 03/23/2017 Patient Education: [...] daily. 01/23/2017 Appointment: [facility]el[facility] [phone] [facility] (15 min) Moderate 01/23/2017 Patient Education: [...] Appointment: Bri[facility] Otoole [facility]Ptel: [phone] [place] (15 min) Moderate 11/02/2016 Patient Education: Patient [...] pain - continue with carafate 09/29/2016 Appointment: [facility]el[facility] [phone] [facility] [place] (15 min) Moderate 09/29/2016 Patient Education: Patient Medication Summary Completed 09/29/2016 Appointment: Meg[facility] Vegay [facility]el[facility] [phone] [facility] [place] (15 min) Moderate 09/27/2016 Appointment: [facility]Ptel[facility] [phone] [facility] [place] (15 min) Moderate 09/20/2016 Appointment: [facility]Ptel: [phone] [facility] [place] (15 min) Moderate 09/20/2016 Patient Education: Patient Medication Summary Completed 09/06/2016 Appointment: [facility]el[facility] [phone] [facility] [place] (15 min) Moderate 08/30/2016 [...] to call for acute concerns. 07/26/2016 Appointment: GaryYarely [facility]Ptel: [phone] [facility] [place] (15 min) Moderate 07/26/2016 [...] surrogate. 05/30/2016 Appointment: Brianna Otoole WPtel: [phone] [facility] [facility] - Annual Wellness Visit 05/30/2016 [...] bedtime 05/25/2016 Appointment: [facility]el[facility] [phone] [facility] (15 min) Moderate 05/25/2016 Patient Education: Patient Medication Summary Completed 05/25/2016 Patient Education: Obesity Completed 05/25/2016 Care Plan: Referral Order SNOMED-CT : [id number] Pending 05/25/2016 Appointment: Injection 05/10/2016 Patient Education: Patient Medication Summary Completed 05/10/2016 Appointment: Injection 04/26/2016 Patient Education: Patient Medication Summary Completed 04/26/2016 Appointment: Injection 04/11/2016 Patient Education: Patient Medication Summary Completed 04/11/2016 Appointment: Injection 03/31/2016 Patient Education: Patient Medication Summary Completed 03/31/2016 Patient Education: Patient Medication Summary Completed 03/22/2016 Care Plan: SCREENINGMAMMOGRAPHYDIGITAL LOINC : 97082-4 Pending 03/22/2016 Appointment: Injection 03/15/2016 Patient Education: [...] any concerns. 02/25/2016 Appointment: Brianna Otoole WPtel: [facility] [place] [place] (15 min) Moderate 02/25/2016 Patient Education: Patient [...] the patients recent sleep study - recommended [place] home patient eval of pt - nocturnal [...] the patients recent sleep study - recommended [place] patient eval of pt - nocturnal oxygen [...] case with Faiza's daughter who had left [facility]. She is interested in looking at assisted living facilities for her mom as Faiza's family is for assisted living placement sooner rather than later. 10/12/2015 Appointment: Yarely Vega WPtel: [facility] [place] (15 min) Moderate 10/12/2015 Patient [...] Completed 08/17/2015 Appointment: [facility]ega WPtel: [phone] [facility] (15 min) Moderate 08/11/2015 Appointment: [...] 2 05/19/2015 Appointment: [facility]ega [facility]Ptel: [phone] [facility] (30 min) Complex 05/19/2015 Patient [...] prn alprazolam. 01/13/2015 Appointment: Yarely Vega WPtel: [facility] [place] (15 min) Moderate 01/13/2015 Patient [...] current medications. 12/16/2014 Appointment: Janet Fam WPtel: [facility] [place] [place] [place] New Patient 12/16/2014 Patient Education: [...] DOPA paperwork for health care surrogate. . Yecacm-pncugopph-[id number] protonix-follow up with Dr Navarro as scheduled [...] Fatigue/malaise -Pt was advsied to ask the Car Spotter the following: ask the heart doctor if [...] Fatigue/malaise -Pt was advsied to ask the Car Spotter the following: ask the heart doctor if [...] wall. Fatigue - pt to discuss with Car Spotter about the possibility of amiodarone causing her [...] the patients recent sleep study - recommended [place] home patient eval of pt - nocturnal [...] the patients recent sleep study - recommended [place] home patient eval of pt - nocturnal [...]
--- OUTSIDE RECORDS SUMMARY | 2018-12-05 18:48 | XMS REPORT | CCD ---
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 Name Role Phone PP Unavailable CCM Unavailable Summary Purpose Interface Exchange Insurance Providers Payer name Policy type / Coverage type Covered alliance party ID Effective Begin Date Effective End Date WPS Medicare Part B Medicare Part B [id number] Unknown Principal Life Insurance Medicare Part B [id number] Unknown [employer] in [place] Medicare Part B [id number] Unknown Family history Brother Diagnosis Age At Onset Heart Attack Unknown Mother Diagnosis Age At Onset Hypertension Unknown kidney disease Unknown Stroke Unknown Father Diagnosis Age At Onset Arthritis Unknown Social History Social History Element Codes Description Effective Dates Employment Unknown Retired worked at [employer] 11/20/2017 Marital status Unknown Single 12/16/[address]: 4061410 Former smoker 12/16/[address]: 844139263 Never drinks alcohol 12/16/2014 Allergies, Adverse Reactions, Alerts Substance Reaction Codes Entered Date Inactivated Date Status CODEINE RxNorm: 2670 05/25/2016 No Inactive Date Active ciprofloxacin RxNorm: 67294 12/16/2014 No Inactive Date Active MORPHINE SULFATE [...] (vit B-12) 1,000 mcg/mL injection solution RxNorm: 896196 Milliliter(s) Inj 07/04/2018 07/04/2018 Inactive Aricept 10 mg tablet RxNorm: 168289 Tablet(s) 1 Tablet(s) PO daily 06/25/2018 06/19/2019 Active hydrocodone 5 mg-acetaminophen 325 mg tablet RxNorm: 770829 1-2 Tablet(s) PO Q6 as needed for pain 06/20/2018 07/19/2018 Active Flonase Allergy Relief 50 mcg/actuation nasal spray,suspension RxNorm: 3913457 [place] 1 [place] NASAL BID 06/20/2018 10/17/2018 Active cyanocobalamin (vit B-12) 1,000 mcg/mL injection solution RxNorm: 466825 Milliliter(s) Inj 06/20/2018 06/20/2018 Inactive cyanocobalamin (vit B-12) 1,000 mcg/mL injection solution RxNorm: 707308 Milliliter(s) Inj 06/06/2018 06/06/2018 Inactive alprazolam 0.25 mg tablet RxNorm: 597089 1 Tablet(s) PO BID 05/25/2018 08/22/2018 Active hydrocodone 5 mg-acetaminophen 325 mg tablet RxNorm: 162301 1-2 Tablet(s) PO Q6 as needed for pain 05/24/2018 06/19/2018 Inactive cyanocobalamin (vit B-12) 1,000 mcg/mL injection solution RxNorm: 419726 Milliliter(s) Inj 05/24/2018 05/24/2018 Inactive cyanocobalamin (vit B-12) 1,000 mcg/mL injection solution RxNorm: 886823 Milliliter(s) Inj 05/09/2018 05/09/2018 Inactive Claritin 10 mg tablet RxNorm: 445322 TAKE 1 TABLET BY MOUTH ONCE DAILY 05/08/2018 05/02/2019 Active Generic For:CLARITIN 10MG 05/07/2018 9:13:47 AM cyanocobalamin (vit B-12) 1,000 mcg/mL injection solution RxNorm: 119755 INJECT ONE 1 ML EVERY TWO WEEKS 05/03/2018 04/03/2019 Active 05/03/2018 9:13:42 AM Mobic 15 mg tablet RxNorm: 101609 Tablet(s) 1 Tablet(s) PO daily 04/26/2018 04/20/2019 Active buspirone 15 mg tablet RxNorm: 689234 Tablet(s) TAKE 1 TABLET BY MOUTH TWICE DAILY 04/26/2018 04/20/2019 Active Generic For:BUSPAR 15MG 05/31/2017 9:19:20 AM Norvasc 5 mg tablet RxNorm: 926930 Tablet(s) 1 Tablet(s) PO daily 04/26/2018 04/20/2019 Active cyanocobalamin (vit B-12) 1,000 mcg/mL injection solution RxNorm: 208546 Milliliter(s) Inj 04/26/2018 04/26/2018 Inactive hydrocodone 5 mg-acetaminophen 325 mg tablet RxNorm: 963581 1-2 Tablet(s) PO Q6 as needed for pain 04/25/2018 05/23/2018 Inactive cyanocobalamin (vit B-12) 1,000 mcg/mL injection solution RxNorm: 558557 Milliliter(s) Inj 04/12/2018 04/12/2018 Inactive Topamax 25 mg tablet RxNorm: 993302 1 Tablet(s) PO BID 04/09/2018 05/02/2018 Inactive Generic For:TOPAMAX 25MG 12/06/2016 9:15:13 AM Zoloft 50 mg tablet RxNorm: 208872 TAKE 1 TABLET BY MOUTH ONCE DAILY 04/04/2018 12/29/2018 Active Generic For:ZOLOFT 50MG 04/04/2018 9:13:25 AM cyanocobalamin (vit B-12) 1,000 mcg/mL injection solution RxNorm: 127420 Milliliter(s) Inj 03/30/2018 03/30/2018 Inactive levothyroxine 125 mcg tablet RxNorm: 397806 TAKE 1 TABLET BY MOUTH EVERY DAY 03/26/2018 09/21/2018 Active Generic For:SYNTHROID 125MCG TAB 03/26/2018 9:15:59 AM liothyronine 5 mcg tablet RxNorm: 905324 TAKE 1 TABLET BY MOUTH TWICE DAILY 03/26/2018 09/21/2018 Active Generic For:CYTOMEL 5MCG 03/26/2018 9:15:54 AM hydrocodone 5 mg-acetaminophen 325 mg tablet RxNorm: 137813 1-2 Tablet(s) PO Q6 as needed for pain 03/19/2018 04/17/2018 Inactive cyanocobalamin (vit B-12) 1,000 mcg/mL injection solution RxNorm: 748817 Milliliter(s) Inj 03/16/2018 03/16/2018 Inactive Flonase Allergy Relief 50 mcg/actuation nasal spray,suspension RxNorm: 8902884 1 [place] NASAL BID 03/05/2018 06/19/2018 Inactive cyanocobalamin (vit B-12) 1,000 mcg/mL injection solution RxNorm: 866145 Milliliter(s) Inj 03/02/2018 03/02/2018 Inactive alprazolam 0.25 mg tablet RxNorm: 462283 1 Tablet(s) PO BID 02/28/2018 05/27/2018 Inactive cyanocobalamin (vit B-12) 1,000 mcg/mL injection solution RxNorm: 883578 Milliliter(s) Inj 02/08/2018 02/08/2018 Inactive cyanocobalamin (vit B-12) 1,000 mcg/mL injection solution RxNorm: 918276 Milliliter(s) Inj 01/24/2018 01/24/2018 Inactive albuterol sulfate 2.5 mg/3 mL (0.083 %) solution for nebulization RxNorm: 800716 3 Millil[place](s) INH Q6 PRN 01/24/2018 05/02/2018 Inactive Claritin 10 mg tablet RxNorm: 362478 1 Tablet(s) PO daily 01/15/2018 05/07/2018 Inactive cyanocobalamin (vit B-12) 1,000 mcg/mL injection solution RxNorm: 733624 Millil[place](s) Inj 01/10/2018 01/10/2018 Inactive hydrocodone 5 mg-acetaminophen 325 mg tablet RxNorm: 352361 1-2 Tablet(s) PO Q6 as needed for pain 01/09/2018 02/07/2018 Inactive cyanocobalamin (vit B-12) 1,000 mcg/mL injection solution RxNorm: 519501 Milliliter(s) Inj 12/27/2017 12/27/2017 Inactive cyanocobalamin (vit B-12) 1,000 mcg/mL injection solution RxNorm: 989904 1 Milliliter(s) Inj 12/12/2017 12/12/2017 Inactive Zofran ODT 4 mg disintegrating tablet RxNorm: 844556 1 Tablet(s) PO TID as needed 12/08/2017 12/09/2017 Inactive hydrocodone 2.5 mg-guaifenesin 200 mg/5 mL oral solution RxNorm: 338145 5 Milliliter(s) PO 12/04/2017 05/06/2018 Inactive doxycycline hyclate 100 mg capsule RxNorm: 5212562 1 Capsule(s) PO BID 12/04/2017 12/13/2017 Inactive cyanocobalamin (vit B-12) 1,000 mcg/mL injection solution RxNorm: 145663 Milliliter(s) Inj 12/01/2017 12/01/2017 Inactive Flonase Allergy Relief 50 mcg/actuation nasal spray,suspension RxNorm: 8880505 1 [place] NASAL BID 11/20/2017 2018 Inactive cyanocobalamin (vit B-12) 1,000 mcg/mL injection solution RxNorm: 179466 1 Milliliter(s) Inj 11/17/2017 11/17/2017 Inactive hydrocodone 5 mg-acetaminophen 325 mg tablet RxNorm: 435149 1-2 Tablet(s) PO Q6 as needed for pain 11/16/2017 12/15/2017 Inactive cyanocobalamin (vit B-12) 1,000 mcg/mL injection solution RxNorm: 850954 1 Milliliter(s) Inj 11/02/2017 11/02/2017 Inactive hydrocodone 5 mg-acetaminophen 325 mg tablet RxNorm: 257050 1-2 Tablet(s) PO Q6 as needed for pain 10/25/2017 11/15/2017 Inactive Claritin 10 mg tablet RxNorm: 193696 1 Tablet(s) PO daily 10/25/2017 11/19/2017 Inactive albuterol sulfate 2.5 mg/3 mL (0.083 %) solution for nebulization RxNorm: 846980 3 Milliliter(s) INH Q6 PRN 10/25/2017 01/23/2018 Inactive Claritin 10 mg tablet RxNorm: 753429 1 Tablet(s) PO daily 10/25/2017 10/24/2017 Inactive cyanocobalamin (vit B-12) 1,000 mcg/mL injection solution RxNorm: 923328 1 Milliliter(s) Inj 10/20/2017 10/20/2017 Inactive Zoloft 50 mg tablet RxNorm: 367216 TAKE 1 TABLET BY MOUTH ONCE DAILY 10/13/2017 04/03/2018 Inactive Generic For:ZOLOFT 50MG 10/13/2017 8:59:44 AM cyanocobalamin (vit B-12) 1,000 mcg/mL injection solution RxNorm: 223544 Milliliter(s) Inj 10/06/2017 10/06/2017 Inactive liothyronine 5 mcg tablet RxNorm: 571063 TAKE 1 TABLET BY MOUTH TWICE DAILY 10/03/2017 03/25/2018 Inactive Generic For:CYTOMEL 5MCG 10/03/2017 9:13:38 AM cyanocobalamin (vit B-12) 1,000 mcg/mL injection solution RxNorm: 271930 Milliliter(s) Inj 09/21/2017 09/21/2017 Inactive albuterol sulfate 2.5 mg/3 mL (0.083 %) solution for nebulization RxNorm: 553044 3 Milliliter(s) INH Q6 PRN 09/21/2017 10/24/2017 Inactive hydrocodone 5 mg-acetaminophen 325 mg tablet RxNorm: 494868 1-2 Tablet(s) PO Q6 as needed for pain 09/21/2017 10/20/2017 Inactive Kenalog 40 mg/mL suspension for injection RxNorm: 6603954 Milliliter(s) Inj 09/15/2017 09/15/2017 Inactive Keflex 500 mg capsule RxNorm: 898884 1 Capsule(s) PO TID 09/07/2017 09/16/2017 Inactive Please deliver to patient cyanocobalamin (vit B-12) 1,000 mcg/mL injection solution RxNorm: 867367 Milliliter(s) Inj 09/07/2017 09/07/2017 Inactive alprazolam 0.25 mg tablet RxNorm: 435586 1 Tablet(s) PO BID 09/06/2017 02/27/2018 Inactive Aricept 10 mg tablet RxNorm: 326732 1 Tablet(s) PO daily 09/06/2017 06/24/2018 Inactive hydrocodone 5 mg-acetaminophen 325 mg tablet RxNorm: 296391 1-2 Tablet(s) PO Q6 as needed for pain 08/24/2017 09/20/2017 Inactive cyanocobalamin (vit B-12) 1,000 mcg/mL injection solution RxNorm: 605821 Milliliter(s) Inj 08/24/2017 08/24/2017 Inactive Norvasc 5 mg tablet RxNorm: 216025 1 Tablet(s) PO daily 08/18/2017 04/25/2018 Inactive nystatin 100,000 unit/gram topical powder RxNorm: 903495 1 Gram(s) TOP QID 08/17/2017 08/26/2017 Inactive hydrocodone 5 mg-acetaminophen 325 mg tablet RxNorm: 293810 1-2 Tablet(s) PO Q6 as needed for pain 07/25/2017 08/23/2017 Inactive Tamiflu 75 mg capsule RxNorm: 857932 1 Capsule(s) PO BID 07/24/2017 12/11/2017 Inactive nystatin 100,000 unit/gram topical powder RxNorm: 303992 1 Gram(s) TOP QID 07/14/2017 07/22/2017 Inactive levothyroxine 125 mcg tablet RxNorm: 230795 Tablet(s) 1 Tablet(s) PO daily 07/10/2017 01/05/2018 Inactive nystatin 100,000 unit/gram topical powder RxNorm: 993147 1 Gram(s) TOP QID 07/06/2017 07/13/2017 Inactive cyanocobalamin (vit B-12) 1,000 mcg/mL injection solution RxNorm: 517102 Milliliter(s) Inj 07/06/2017 07/06/2017 Inactive Kenalog 40 mg/mL suspension for injection RxNorm: 9623620 1 Milliliter(s) Inj 06/20/2017 06/20/2017 Inactive doxycycline hyclate 100 mg capsule RxNorm: 9865306 1 Capsule(s) PO BID 06/20/2017 06/26/2017 Inactive cyanocobalamin (vit B-12) 1,000 mcg/mL injection solution RxNorm: 155300 Milliliter(s) Inj 06/20/2017 06/20/2017 Inactive Keflex 500 mg capsule RxNorm: 605610 1 Capsule(s) PO TID 06/14/2017 06/23/2017 Inactive Please deliver to patient Mobic 15 mg tablet RxNorm: 722938 1 Tablet(s) PO daily 06/14/2017 04/25/2018 Inactive cyanocobalamin (vit B-12) 1,000 mcg/mL injection solution RxNorm: 839745 Milliliter(s) Inj 06/05/2017 06/05/2017 Inactive buspirone 15 mg tablet RxNorm: 860526 TAKE 1 TABLET BY MOUTH TWICE DAILY 05/31/2017 04/25/2018 Inactive Generic For:BUSPAR 15MG 05/31/2017 9:19:20 AM cyanocobalamin (vit B-12) 1,000 mcg/mL injection solution RxNorm: 817335 Milliliter(s) Inj 05/25/2017 05/25/2017 Inactive hydrocodone 5 mg-acetaminophen 325 mg tablet RxNorm: 743684 1-2 Tablet(s) PO Q6 as needed for pain 05/25/2017 06/23/2017 Inactive amiodarone 200 mg tablet RxNorm: 045410 1/2 Tablet(s) PO daily 05/22/2017 No Stop Date Active cardiology decreased to 100mg daily cyanocobalamin (vit B-12) 1,000 mcg/mL injection solution RxNorm: 048131 Milliliter(s) Inj 05/16/2017 05/16/2017 Inactive Zofran ODT 4 mg disintegrating tablet RxNorm: 738063 1 Tablet(s) PO TID as needed 05/03/2017 05/04/2017 Inactive hydrocodone 5 mg-acetaminophen 325 mg tablet RxNorm: 832488 1-2 Tablet(s) PO Q6 as needed for pain 05/01/2017 05/05/2017 Inactive cyanocobalamin (vit B-12) 1,000 mcg/mL injection solution RxNorm: 402937 1 Milliliter(s) Inj 05/01/2017 05/01/2017 Inactive cyanocobalamin (vit B-12) 1,000 mcg/mL injection solution RxNorm: 298036 INJECT ONE 1 ML EVERY TWO WEEKS 04/26/2017 12/04/2018 Active 04/26/2017 9:08:52 AM Zoloft 50 mg tablet RxNorm: 969162 Tablet(s) TAKE 1 TABLET BY MOUTH DAILY 04/25/2017 10/12/2017 Inactive Generic For:ZOLOFT 50MG cyanocobalamin (vit B-12) 1,000 mcg/mL injection solution RxNorm: 375301 Milliliter(s) Inj 04/18/2017 04/18/2017 Inactive liothyronine 5 mcg tablet RxNorm: 704838 1 Tablet(s) PO BID 04/13/2017 10/02/2017 Inactive cyanocobalamin (vit B-12) 1,000 mcg/mL injection solution RxNorm: 828606 Milliliter(s) Inj 04/06/2017 04/06/2017 Inactive hydrocodone 5 mg-acetaminophen 325 mg tablet RxNorm: 313365 1-2 Tablet(s) PO Q6 as needed for pain 04/06/2017 04/10/2017 Inactive cyanocobalamin (vit B-12) 1,000 mcg/mL injection solution RxNorm: 962564 Milliliter(s) Inj 03/22/2017 03/22/2017 Inactive alprazolam 0.25 mg tablet RxNorm: 526403 1 Tablet(s) PO BID 03/17/2017 12/11/2017 Inactive alprazolam 0.25 mg tablet RxNorm: 030800 1 Tablet(s) PO BID 03/16/2017 09/05/2017 Inactive hydrocodone 5 mg-acetaminophen 325 mg tablet RxNorm: 582779 1-2 Tablet(s) PO Q6 as needed for pain 03/09/2017 03/13/2017 Inactive cyanocobalamin (vit B-12) 1,000 mcg/mL injection solution RxNorm: 895487 Milliliter(s) Inj 03/09/2017 03/09/2017 Inactive cyanocobalamin (vit B-12) 1,000 mcg/mL injection solution RxNorm: 380400 Milliliter(s) Inj 02/23/2017 02/23/2017 Inactive cyanocobalamin (vit B-12) 1,000 mcg/mL injection solution RxNorm: 138106 Milliliter(s) Inj 02/09/2017 02/09/2017 Inactive hydrocodone 5 mg-acetaminophen 325 mg tablet RxNorm: 933396 1-2 Tablet(s) PO Q6 as needed for pain 02/08/2017 02/12/2017 Inactive Topamax 25 mg tablet RxNorm: 132194 1 Tablet(s) PO BID 01/23/2017 05/22/2017 Inactive Generic For:TOPAMAX 25MG 12/06/2016 9:15:13 AM cyanocobalamin (vit B-12) 1,000 mcg/mL injection solution RxNorm: 340373 Milliliter(s) Inj 01/23/2017 01/23/2017 Inactive cyanocobalamin (vit B-12) 1,000 mcg/mL injection solution RxNorm: 466529 Milliliter(s) Inj 01/10/2017 01/10/2017 Inactive hydrocodone 5 mg-acetaminophen 325 mg tablet RxNorm: 755868 1-2 Tablet(s) PO Q6 as needed for pain 01/09/2017 01/13/2017 Inactive cyanocobalamin (vit B-12) 1,000 mcg/mL injection solution RxNorm: 148737 1 Milliliter(s) Inj 12/28/2016 12/28/2016 Inactive cyanocobalamin (vit B-12) 1,000 mcg/mL injection solution RxNorm: 421222 Milliliter(s) Inj 12/14/2016 12/14/2016 Inactive buspirone 15 mg tablet RxNorm: 297400 1 Tablet(s) PO BID 12/12/2016 05/30/2017 Inactive hydrocodone 5 mg-acetaminophen 325 mg tablet RxNorm: 664769 1-2 Tablet(s) PO Q6 as needed for pain 12/08/2016 12/12/2016 Inactive Topamax 25 mg tablet RxNorm: 480695 TAKE 1 TABLET BY MOUTH EVERY DAY AT BEDTIME 12/06/2016 01/22/2017 Inactive Generic For:TOPAMAX 25MG 12/06/2016 9:15:13 AM Lac-Hydrin Five 5 % lotion RxNorm: 566692 1 Gram(s) TOP daily 12/02/2016 05/02/2018 Inactive cyanocobalamin (vit B-12) 1,000 mcg/mL injection solution RxNorm: 955707 Milliliter(s) Inj 11/24/2016 11/24/2016 Inactive Ceftin 500 mg tablet RxNorm: 111229 1 Tablet(s) PO BID 11/11/2016 06/13/2017 Inactive Cipro 500 mg tablet RxNorm: 510684 1 Tablet(s) PO BID 11/11/2016 11/10/2016 Inactive Cipro 500 mg tablet RxNorm: 551269 1 Tablet(s) PO BID 11/11/2016 11/11/2016 Inactive cyanocobalamin (vit B-12) 1,000 mcg/mL injection solution RxNorm: 820464 1 Milliliter(s) Inj 11/07/2016 11/07/2016 Inactive hydrocodone 5 mg-acetaminophen 325 mg tablet RxNorm: 394172 1-2 Tablet(s) PO Q6 as needed for pain 11/02/2016 11/06/2016 Inactive cyanocobalamin (vit B-12) 1,000 mcg/mL injection solution RxNorm: 845255 Milliliter(s) Inj 10/24/2016 10/24/2016 Inactive levothyroxine 125 mcg tablet RxNorm: 217290 Tablet(s) 1 Tablet(s) PO daily 10/24/2016 04/21/2017 Inactive liothyronine 5 mcg tablet RxNorm: 621731 1 Tablet(s) PO BID 10/24/2016 04/12/2017 Inactive hydrocodone 5 mg-acetaminophen 325 mg tablet RxNorm: 426889 1-2 Tablet(s) PO Q6 as needed for pain 10/17/2016 10/21/2016 Inactive Keflex 500 mg capsule RxNorm: 132237 1 Capsule(s) PO TID 10/07/2016 10/06/2016 Inactive Keflex 500 mg capsule RxNorm: 753052 1 Capsule(s) PO TID 10/07/2016 10/16/2016 Inactive Please deliver to patient cyanocobalamin (vit B-12) 1,000 mcg/mL injection solution RxNorm: 030487 1 Milliliter(s) Inj 09/29/2016 09/29/2016 Inactive alprazolam 0.25 mg tablet RxNorm: 365048 1 Tablet(s) PO BID 09/20/2016 03/16/2017 Inactive Cozaar 100 mg tablet RxNorm: 184529 1 Tablet(s) PO daily 09/14/2016 No Stop Date Active metoprolol tartrate 50 mg tablet RxNorm: 903985 1/2 Tablet(s) PO BID 09/14/2016 12/12/2016 Inactive Zoloft 50 mg tablet RxNorm: 403605 Tablet(s) TAKE 1 TABLET BY MOUTH DAILY 09/14/2016 03/12/2017 Inactive Generic For:ZOLOFT 50MG liothyronine 5 mcg tablet RxNorm: 128915 1 Tablet(s) PO BID 09/14/2016 10/23/2016 Inactive Calmoseptine 0.44 %-20.6 % topical ointment RxNorm: 966906 1 Application TOP BID and as needed to sore on buttocks 09/07/2016 No Stop Date Active cyanocobalamin (vit B-12) 1,000 mcg/mL injection solution RxNorm: 739691 Milliliter(s) Inj 08/29/2016 08/29/2016 Inactive hydrocodone 5 mg-acetaminophen 325 mg tablet RxNorm: 015741 1-2 Tablet(s) PO Q6 as needed for pain 08/29/2016 10/16/2016 Inactive levothyroxine 125 mcg tablet RxNorm: 776407 1 Tablet(s) PO daily 08/25/2016 10/23/2016 Inactive Topamax 25 mg tablet RxNorm: 393418 TAKE 1 TABLET BY MOUTH EVERY DAY AT BEDTIME 08/17/2016 12/05/2016 Inactive Generic For:TOPAMAX 25MG 08/17/2016 2:14:37 PM hydrocodone 5 mg-acetaminophen 325 mg tablet RxNorm: 349796 1-2 Tablet(s) PO Q6 as needed for pain 08/11/2016 08/28/2016 Inactive hydrocodone 5 mg-acetaminophen 325 mg tablet RxNorm: 219529 1 -2 Tablet(s) PO Q6 as needed for pain 08/11/2016 08/18/2016 Inactive hydrocodone 5 mg-acetaminophen 325 mg tablet RxNorm: 299396 1 Tablet(s) PO Q6 as needed for pain 08/05/2016 08/10/2016 Inactive cyanocobalamin (vit B-12) 1,000 mcg/mL injection solution RxNorm: 860522 Milliliter(s) Inj 08/04/2016 08/04/2016 Inactive Norvasc 10 mg tablet RxNorm: 923403 1 Tablet(s) PO daily 07/26/2016 07/20/2017 Inactive alprazolam 0.25 mg tablet RxNorm: 270704 1 Tablet(s) PO QHS 07/21/2016 09/19/2016 Inactive Norvasc 5 mg tablet RxNorm: 411859 1 Tablet(s) PO daily 07/21/2016 07/25/2016 Inactive levothyroxine 125 mcg tablet RxNorm: 597393 1 Tablet(s) PO daily 07/21/2016 12/11/2017 Inactive cyanocobalamin (vit B-12) 1,000 mcg/mL injection solution RxNorm: 619035 Milliliter(s) Inj 07/21/2016 07/21/2016 Inactive Zoloft 50 mg tablet RxNorm: 348450 Tablet(s) TAKE 1 TABLET BY MOUTH DAILY 07/21/2016 09/13/2016 Inactive Generic For:ZOLOFT 50MG cyanocobalamin (vit B-12) 1,000 mcg/mL injection solution RxNorm: 792510 1 Milliliter(s) Inj 07/05/2016 07/05/2016 Inactive cyanocobalamin (vit B-12) 1,000 mcg/mL injection solution RxNorm: 447850 1 Milliliter(s) Inj 06/22/2016 06/22/2016 Inactive cyanocobalamin (vit B-12) 1,000 mcg/mL injection solution RxNorm: 197523 Milliliter(s) Inj 06/09/2016 06/09/2016 Inactive Aricept 10 mg tablet RxNorm: 887862 1 Tablet(s) PO daily 05/27/2016 05/21/2017 Inactive Mobic 15 mg tablet RxNorm: 835343 1 Tablet(s) PO daily 05/27/2016 05/21/2017 Inactive levothyroxine 125 mcg tablet RxNorm: 794114 1 Tablet(s) PO daily 05/25/2016 07/20/2016 Inactive cyanocobalamin (vit B-12) 1,000 mcg/mL injection solution RxNorm: 396115 1 Milliliter(s) Inj 05/25/2016 05/25/2016 Inactive doxycycline hyclate 100 mg capsule RxNorm: 7175316 1 Capsule(s) PO BID 05/16/2016 05/15/2016 Inactive doxycycline hyclate 100 mg capsule RxNorm: 4877241 1 Capsule(s) PO BID 05/16/2016 05/22/2016 Inactive cyanocobalamin (vit B-12) 1,000 mcg/mL injection solution RxNorm: 569324 Milliliter(s) Inj 05/10/2016 05/10/2016 Inactive cyanocobalamin (vit B-12) 1,000 mcg/mL injection solution RxNorm: 620151 Milliliter(s) Inj 04/26/2016 04/26/2016 Inactive Topamax 25 mg tablet RxNorm: 440751 1 Tablet(s) PO QPM 04/22/2016 08/16/2016 Inactive cyanocobalamin (vit B-12) 1,000 mcg/mL injection solution RxNorm: 426669 Milliliter(s) 1 Milliliter(s) Inj [id number] 04/11/2016 12/31/2017 Inactive liothyronine 5 mcg tablet RxNorm: 212734 1 Tablet(s) PO BID 04/11/2016 09/13/2016 Inactive cyanocobalamin (vit B-12) 1,000 mcg/mL injection solution RxNorm: 807925 Milliliter(s) Inj 04/11/2016 04/11/2016 Inactive cyanocobalamin (vit B-12) 1,000 mcg/mL injection solution RxNorm: 486240 Milliliter(s) Inj 03/31/2016 03/31/2016 Inactive cyanocobalamin (vit B-12) 1,000 mcg/mL injection solution RxNorm: 887839 1 Milliliter(s) Inj 03/15/2016 03/15/2016 Inactive levothyroxine 125 mcg tablet RxNorm: 583869 1 Tablet(s) PO daily 2016 03/03/2016 Inactive levothyroxine 125 mcg tablet RxNorm: 185893 1 Tablet(s) PO daily 2016 05/24/2016 Inactive cyanocobalamin (vit B-12) 1,000 mcg/mL injection solution RxNorm: 933799 Milliliter(s) Inj 02/25/2016 02/25/2016 Inactive cyanocobalamin (vit B-12) 1,000 mcg/mL injection solution RxNorm: 929240 1 Milliliter(s) Inj 02/02/2016 02/02/2016 Inactive sucralfate 1 gram tablet RxNorm: 414950 1 Tablet(s) PO QHS 01/25/2016 No Stop Date Active amiodarone 200 mg tablet RxNorm: 026684 1/2 Tablet(s) PO BID 01/25/2016 05/21/2017 Inactive cyanocobalamin (vit B-12) 1,000 mcg/mL injection solution RxNorm: 114512 Milliliter(s) Inj 01/18/2016 01/18/2016 Inactive cyanocobalamin (vit B-12) 1,000 mcg/mL injection solution RxNorm: 500905 Milliliter(s) Inj 12/29/2015 12/29/2015 Inactive Topamax 25 mg tablet RxNorm: 187824 1 Tablet(s) PO QPM 12/08/2015 04/05/2016 Inactive cyanocobalamin (vit B-12) 1,000 mcg/mL injection solution RxNorm: 653883 Milliliter(s) Inj 12/08/2015 12/08/2015 Inactive Bactrim DS 800 mg-160 mg tablet RxNorm: 382568 1 Tablet(s) PO BID 11/23/2015 11/22/2015 Inactive cyanocobalamin (vit B-12) 1,000 mcg/mL injection solution RxNorm: 779278 Milliliter(s) Inj 11/23/2015 11/23/2015 Inactive Bactrim DS 800 mg-160 mg tablet RxNorm: 466243 1 Tablet(s) PO BID 11/23/2015 11/29/2015 Inactive cyanocobalamin (vit B-12) 1,000 mcg/mL injection solution RxNorm: 154147 Milliliter(s) Inj 11/11/2015 11/11/2015 Inactive amoxicillin 500 mg capsule RxNorm: 136374 1 Capsule(s) PO TID 11/10/2015 11/19/2015 Inactive Zithromax Z-Henrique 250 mg tablet RxNorm: 923159 1 Tablet(s) PO UD 11/10/2015 01/24/2016 Inactive zpack x 1 amoxicillin 500 mg capsule RxNorm: 866904 1 Capsule(s) PO TID 11/10/2015 11/09/2015 Inactive cyanocobalamin (vit B-12) 1,000 mcg/mL injection solution RxNorm: 913568 1 Milliliter(s) Inj 10/29/2015 10/29/2015 Inactive [place] 3 capsule RxNorm: 1 Capsule(s) PO QAM , 2 Capsules at noon, 1 Capsule QHS 10/13/2015 No Stop Date Active potassium chloride ER 20 mEq tablet,extended release RxNorm: 716547 2 Tablet(s) PO daily at noon 10/13/2015 No Stop Date Active alprazolam 0.25 mg tablet RxNorm: 579106 1 Tablet(s) PO QHS 10/13/2015 07/20/2016 Inactive amiodarone 200 mg tablet RxNorm: 613531 1 Tablet(s) PO BID 10/13/2015 01/24/2016 Inactive cyanocobalamin (vit B-12) 1,000 mcg/mL injection solution RxNorm: 204010 1 Milliliter(s) Inj 10/12/2015 10/12/2015 Inactive Zofran 4 mg tablet RxNorm: 381337 1 Tablet(s) PO daily as needed 10/07/2015 05/24/2016 Inactive Zoloft 50 mg tablet RxNorm: 845066 TAKE 1 TABLET BY MOUTH DAILY 10/05/2015 05/01/2016 Inactive Generic For:ZOLOFT 50MG cyanocobalamin (vit B-12) 1,000 mcg/mL injection solution RxNorm: 196144 1 Milliliter(s) Inj 09/29/2015 09/29/2015 Inactive cyanocobalamin (vit B-12) 1,000 mcg/mL injection solution RxNorm: 159447 1 Milliliter(s) Inj 09/17/2015 09/17/2015 Inactive Norvasc 5 mg tablet RxNorm: 622362 1 Tablet(s) PO daily 09/17/2015 07/20/2016 Inactive liothyronine 5 mcg tablet RxNorm: 790633 1 Tablet(s) PO BID 09/17/2015 03/14/2016 Inactive Zoloft 50 mg tablet RxNorm: 046822 1 Tablet(s) PO daily 09/17/2015 10/04/2015 Inactive buspirone 15 mg tablet RxNorm: 225619 1 Tablet(s) PO BID 09/17/2015 09/10/2016 Inactive buspirone 15 mg tablet RxNorm: 880423 1 Tablet(s) PO BID 09/14/2015 09/16/2015 Inactive Topamax 25 mg tablet RxNorm: 839213 1 Tablet(s) PO QPM 09/03/2015 12/07/2015 Inactive cyanocobalamin (vit B-12) 1,000 mcg/mL injection solution RxNorm: 353614 1 Milliliter(s) Inj 09/03/2015 09/03/2015 Inactive cyanocobalamin (vit B-12) 1,000 mcg/mL injection solution RxNorm: 016014 Milliliter(s) Inj 08/17/2015 08/17/2015 Inactive cyanocobalamin (vit B-12) 1,000 mcg/mL injection solution RxNorm: 968425 Milliliter(s) Inj 08/06/2015 08/06/2015 Inactive levothyroxine 150 mcg tablet RxNorm: 470854 1 Tablet(s) PO daily 07/22/2015 03/03/2016 Inactive Aricept 10 mg tablet RxNorm: 213145 1 Tablet(s) PO daily 07/22/2015 05/26/2016 Inactive Mobic 15 mg tablet RxNorm: 496040 1 Tablet(s) PO daily 07/22/2015 05/26/2016 Inactive cyanocobalamin (vit B-12) 1,000 mcg/mL injection solution RxNorm: 353453 Milliliter(s) Inj 07/22/2015 07/22/2015 Inactive liothyronine 5 mcg tablet RxNorm: 143095 1 Tablet(s) PO BID 07/22/2015 09/16/2015 Inactive cyanocobalamin (vit B-12) 1,000 mcg/mL injection solution RxNorm: 167638 Milliliter(s) Inj 07/08/2015 07/08/2015 Inactive cyanocobalamin (vit B-12) 1,000 mcg/mL injection solution RxNorm: 403784 Milliliter(s) Inj 06/23/2015 06/23/2015 Inactive cyanocobalamin (vit B-12) 1,000 mcg/mL injection solution RxNorm: 532717 1 Milliliter(s) Inj 06/08/2015 06/08/2015 Inactive cyanocobalamin (vit B-12) 1,000 mcg/mL injection solution RxNorm: 727283 Milliliter(s) Inj 05/27/2015 05/27/2015 Inactive Aricept 10 mg tablet RxNorm: 559289 1 Tablet(s) PO daily 05/20/2015 07/21/2015 Inactive Zofran 4 mg tablet RxNorm: 139500 1 Tablet(s) PO daily as needed 05/20/2015 06/18/2015 Inactive alprazolam 0.25 mg tablet RxNorm: 141430 1 Tablet(s) PO BID 05/20/2015 10/12/2015 Inactive Mobic 15 mg tablet RxNorm: 355924 1 Tablet(s) PO daily 05/20/2015 07/21/2015 Inactive tramadol ER 100 mg tablet,extended release 24 hr RxNorm: 216180 1 Tablet(s) PO Q6 as needed 05/13/2015 No Stop Date Active cyanocobalamin (vit B-12) 1,000 mcg/mL injection solution RxNorm: 234496 1 Milliliter(s) Inj 05/12/2015 05/12/2015 Inactive Topamax 25 mg tablet RxNorm: 718041 1 Tablet(s) PO BID (start at one pill at bedtime x 1week then twice daily thereafter) 05/12/2015 09/02/2015 Inactive cyanocobalamin (vit B-12) 1,000 mcg/mL injection kit RxNorm: 285244 kit Inj 04/30/2015 04/30/2015 Inactive cyanocobalamin (vit B-12) 1,000 mcg/mL injection solution RxNorm: 284481 Milliliter(s) Inj 04/16/2015 04/16/2015 Inactive levothyroxine 150 mcg tablet RxNorm: 342044 1 Tablet(s) PO daily 04/08/2015 07/21/2015 Inactive cyanocobalamin (vit B-12) 1,000 mcg/mL injection solution RxNorm: 056607 Milliliter(s) 1 Milliliter(s) Inj [id number] 04/08/2015 04/10/2016 Inactive Cytomel 5 mcg tablet RxNorm: 650940 1 Tablet(s) PO BID 04/08/2015 10/12/2015 Inactive Cytomel 5 mcg tablet RxNorm: 281161 1 Tablet(s) PO BID 04/07/2015 04/07/2015 Inactive Cytomel 5 mcg tablet RxNorm: 499232 1 Tablet(s) PO BID 04/07/2015 04/06/2015 Inactive cyanocobalamin (vit B-12) 1,000 mcg/mL injection solution RxNorm: 998219 Milliliter(s) Inj 04/02/2015 04/02/2015 Inactive cyanocobalamin (vit B-12) 1,000 mcg/mL injection solution RxNorm: 279253 Milliliter(s) Inj 03/18/2015 03/18/2015 Inactive cyanocobalamin (vit B-12) 1,000 mcg/mL injection solution RxNorm: 306063 Milliliter(s) 1 Milliliter(s) Inj [id number] 03/18/2015 04/07/2015 Inactive cyanocobalamin (vit B-12) 1,000 mcg/mL injection solution RxNorm: 203903 1 Milliliter(s) Inj [id number] 03/16/2015 03/17/2015 Inactive cyanocobalamin (vit B-12) 1,000 mcg/mL injection solution RxNorm: 034815 Milliliter(s) Inj 03/03/2015 03/03/2015 Inactive cyanocobalamin (vit B-12) 1,000 mcg/mL injection solution RxNorm: 458775 Milliliter(s) Inj 02/18/2015 02/18/2015 Inactive cyanocobalamin (vit B-12) 1,000 mcg/mL injection solution RxNorm: 989712 Milliliter(s) Inj 02/04/2015 02/04/2015 Inactive cyanocobalamin (vit B-12) 1,000 mcg/mL injection solution RxNorm: 355142 Milliliter(s) Inj 01/22/2015 01/22/2015 Inactive Lac-Hydrin Five 5 % lotion RxNorm: 684719 1 TOP daily 01/13/2015 03/13/2015 Inactive Lac-Hydrin Five 5 % lotion RxNorm: 086623 1 TOP daily 01/13/2015 01/12/2015 Inactive cyanocobalamin (vit B-12) 1,000 mcg/mL injection solution RxNorm: 848557 Milliliter(s) Inj 01/08/2015 01/08/2015 Inactive cyanocobalamin (vit B-12) 1,000 mcg/mL injection solution RxNorm: 235002 Milliliter(s) Inj 12/25/2014 12/25/2014 Inactive levothyroxine 150 mcg tablet RxNorm: 707828 1 Tablet(s) PO daily 12/24/2014 04/07/2015 Inactive tramadol 50 mg tablet RxNorm: 613416 1-2 Tablet(s) PO Q6 as needed 12/17/2014 05/12/2015 Inactive alprazolam 0.25 mg tablet RxNorm: 919854 1 Tablet(s) PO BID 12/17/2014 04/15/2015 Inactive Pradaxa 150 mg capsule RxNorm: 2613220 1 Capsule(s) PO BID 12/16/2014 No Stop Date Active metoprolol tartrate 50 mg tablet RxNorm: 646686 1/2 Tablet(s) PO BID 12/16/2014 09/13/2016 Inactive buspirone 15 mg tablet RxNorm: 971239 1 Tablet(s) PO BID 12/16/2014 09/13/2015 Inactive cyanocobalamin (vit B-12) 1,000 mcg/mL injection solution RxNorm: 665754 1 Milliliter(s) Inj [id number] 12/16/2014 03/15/2015 Inactive cyanocobalamin (vit B-12) 1,000 mcg/mL injection solution RxNorm: 084537 1 Milliliter(s) Inj W2ivdic 12/16/2014 12/15/2014 Inactive sucralfate 1 gram tablet RxNorm: 018165 Tablet(s) PO QID 12/16/2014 12/10/2015 Inactive cyanocobalamin (vit B-12) 1,000 mcg/mL injection solution RxNorm: 683272 Milliliter(s) Inj 12/10/2014 12/10/2014 Inactive cyanocobalamin (vit B-12) 1,000 mcg/mL injection solution RxNorm: 257920 Milliliter(s) Inj 11/26/2014 11/26/2014 Inactive Zoloft 50 mg tablet RxNorm: 835508 1 Tablet(s) PO daily 11/24/2014 06/21/2015 Inactive Zoloft 50 mg tablet RxNorm: 487119 1 Tablet(s) PO daily 11/24/2014 11/23/2014 Inactive cyanocobalamin (vit B-12) 1,000 mcg/mL injection kit RxNorm: 381257 Milliliter(s) Inj 11/12/2014 11/12/2014 Inactive cyanocobalamin (vit B-12) 1,000 mcg/mL injection solution RxNorm: 433330 Milliliter(s) Inj 10/28/2014 10/28/2014 Inactive [SAVINGS FOR NON-COVERED DRUGS -- [id number], PCN: [id number], Group: [id number], ID# [id number], Questions: . THIS IS NOT INSURANCE.] promethazine oral RxNorm: 8745 oral No Start Date Active digoxin 125 mcg tablet RxNorm: 328303 Tablet(s) PO every other day No Start Date Active furosemide 40 mg tablet RxNorm: 682732 1 Tablet(s) PO daily No Start Date Active Vitamin D3 5,000 unit tablet RxNorm: 526593 1 Tablet(s) PO daily No Start Date Active erythromycin 250 mg capsule,delayed release RxNorm: 046840 1 Capsule(s) PO AC No Start Date Active Protonix 40 mg tablet,delayed release RxNorm: 275776 1 Tablet(s) PO BID No Start Date Active Cozaar 100 mg tablet RxNorm: 068448 1 Tablet(s) PO daily No Start Date 09/13/2016 Inactive sucralfate 1 gram tablet RxNorm: 434651 Tablet(s) PO QID No Start Date 12/15/2014 Inactive amiodarone 200 mg tablet RxNorm: 271352 2 Tablet(s) PO daily No Start Date 10/13/2015 Inactive buspirone 15 mg tablet RxNorm: 362313 1 Tablet(s) PO daily No Start Date 12/15/2014 Inactive potassium chloride ER 20 mEq tablet,extended release RxNorm: 357468 1 Tablet(s) PO daily No Start Date 10/12/2015 Inactive Prilosec 40 mg capsule,delayed release RxNorm: 163557 1 Capsule(s) PO daily No Start Date 09/02/2015 Inactive [place] 3 capsule RxNorm: Capsule(s) PO No Start Date 10/12/2015 Inactive alprazolam 0.25 mg tablet RxNorm: 538412 Tablet(s) PO QHS No Start Date 12/16/2014 Inactive levothyroxine 125 mcg tablet RxNorm: 260956 1 Tablet(s) PO daily No Start Date 12/23/2014 Inactive liothyronine 5 mcg tablet RxNorm: 067451 1 Tablet(s) PO BID No Start Date 07/21/2015 Inactive Mobic 15 mg tablet RxNorm: 331571 Tablet(s) PO daily No Start Date 05/19/2015 Inactive Norvasc 5 mg tablet RxNorm: 806595 1 Tablet(s) PO daily No Start Date 09/16/2015 Inactive Zofran 4 mg tablet RxNorm: 567205 1 Tablet(s) PO daily as needed No Start Date 05/19/2015 Inactive Tamiflu 75 mg capsule RxNorm: 019682 1 Capsule(s) PO BID No Start Date 07/23/2017 Inactive tramadol 50 mg tablet RxNorm: 637709 1 Tablet(s) PO daily as needed No Start Date 12/16/2014 Inactive amiodarone 200 mg tablet RxNorm: 284272 1 Tablet(s) PO daily No Start Date 10/12/2015 Inactive Zofran ODT 4 mg disintegrating tablet RxNorm: 480869 1 Tablet(s) PO TID as needed No Start Date 05/02/2017 Inactive albuterol sulfate 2.5 mg/3 mL (0.083 %) solution for nebulization RxNorm: 013888 3 Milliliter(s) INH Q6 PRN No Start Date 09/20/2017 Inactive meclizine 25 mg tablet RxNorm: 229762 Tablet(s) PO as needed No Start Date 05/24/2016 Inactive Pradaxa 150 mg capsule RxNorm: 1304076 1 Capsule(s) PO daily No Start Date 12/15/2014 Inactive metoprolol tartrate 50 mg tablet RxNorm: 844384 1/2 Tablet(s) PO No Start Date 12/15/2014 Inactive Aricept 10 mg tablet RxNorm: 164314 Tablet(s) PO daily No Start Date 05/19/2015 Inactive Calmoseptine 0.44 %-20.6 % topical ointment RxNorm: 912262 1 Application TOP BID and as needed to sore on buttocks No Start Date 09/06/2016 Inactive Zithromax Z-Henrique 250 mg tablet RxNorm: 353926 1 Tablet(s) PO UD No Start Date 11/09/2015 Inactive zpack x 1 Medication Administered Medication Codes Instructions Start Date Status cyanocobalamin (vit B-12) 1,000 mcg/mL injection solution RxNorm: 637989 Milliliter 07/04/2018 Active cyanocobalamin (vit B-12) 1,000 mcg/mL injection solution RxNorm: 885080 Milliliter 06/20/2018 No longer Active cyanocobalamin (vit B-12) 1,000 mcg/mL injection solution RxNorm: 938076 Milliliter 06/06/2018 No longer Active cyanocobalamin (vit B-12) 1,000 mcg/mL injection solution RxNorm: 948342 Milliliter 05/24/2018 No longer Active cyanocobalamin (vit B-12) 1,000 mcg/mL injection solution RxNorm: 627049 Milliliter 05/09/2018 No longer Active cyanocobalamin (vit B-12) 1,000 mcg/mL injection solution RxNorm: 510886 Milliliter 04/26/2018 No longer Active cyanocobalamin (vit B-12) 1,000 mcg/mL injection solution RxNorm: 161478 Milliliter 04/12/2018 No longer Active cyanocobalamin (vit B-12) 1,000 mcg/mL injection solution RxNorm: 934211 Milliliter 03/30/2018 No longer Active cyanocobalamin (vit B-12) 1,000 mcg/mL injection solution RxNorm: 459720 Milliliter 03/16/2018 No longer Active cyanocobalamin (vit B-12) 1,000 mcg/mL injection solution RxNorm: 903072 Milliliter 03/02/2018 No longer Active cyanocobalamin (vit B-12) 1,000 mcg/mL injection solution RxNorm: 351196 Milliliter 02/08/2018 No longer Active cyanocobalamin (vit B-12) 1,000 mcg/mL injection solution RxNorm: 287367 Milliliter 01/24/2018 No longer Active cyanocobalamin (vit B-12) 1,000 mcg/mL injection solution RxNorm: 643561 Milliliter 01/10/2018 No longer Active cyanocobalamin (vit B-12) 1,000 mcg/mL injection solution RxNorm: 492186 Milliliter 12/27/2017 No longer Active cyanocobalamin (vit B-12) 1,000 mcg/mL injection solution RxNorm: 613459 1Milliliter 12/12/2017 No longer Active cyanocobalamin (vit B-12) 1,000 mcg/mL injection solution RxNorm: 077414 Milliliter 12/01/2017 No longer Active cyanocobalamin (vit B-12) 1,000 mcg/mL injection solution RxNorm: 635936 1Milliliter 11/17/2017 No longer Active cyanocobalamin (vit B-12) 1,000 mcg/mL injection solution RxNorm: 005469 1Milliliter 11/02/2017 No longer Active cyanocobalamin (vit B-12) 1,000 mcg/mL injection solution RxNorm: 542915 1Milliliter 10/20/2017 No longer Active cyanocobalamin (vit B-12) 1,000 mcg/mL injection solution RxNorm: 105771 Milliliter 10/06/2017 No longer Active cyanocobalamin (vit B-12) 1,000 mcg/mL injection solution RxNorm: 012264 Milliliter 09/21/2017 No longer Active Kenalog 40 mg/mL suspension for injection RxNorm: 9633791 Milliliter 09/15/2017 No longer Active cyanocobalamin (vit B-12) 1,000 mcg/mL injection solution RxNorm: 993453 Milliliter 09/07/2017 No longer Active cyanocobalamin (vit B-12) 1,000 mcg/mL injection solution RxNorm: 031345 Milliliter 08/24/2017 No longer Active cyanocobalamin (vit B-12) 1,000 mcg/mL injection solution RxNorm: 285856 Milliliter 07/06/2017 No longer Active cyanocobalamin (vit B-12) 1,000 mcg/mL injection solution RxNorm: 471555 Milliliter 06/20/2017 No longer Active Kenalog 40 mg/mL suspension for injection RxNorm: 6211295 1Milliliter 06/20/2017 No longer Active cyanocobalamin (vit B-12) 1,000 mcg/mL injection solution RxNorm: 312281 Milliliter 06/05/2017 No longer Active cyanocobalamin (vit B-12) 1,000 mcg/mL injection solution RxNorm: 450028 Milliliter 05/25/2017 No longer Active cyanocobalamin (vit B-12) 1,000 mcg/mL injection solution RxNorm: 208289 Milliliter 05/16/2017 No longer Active cyanocobalamin (vit B-12) 1,000 mcg/mL injection solution RxNorm: 659919 1Milliliter 05/01/2017 No longer Active cyanocobalamin (vit B-12) 1,000 mcg/mL injection solution RxNorm: 676316 Milliliter 04/18/2017 No longer Active cyanocobalamin (vit B-12) 1,000 mcg/mL injection solution RxNorm: 458285 Milliliter 04/06/2017 No longer Active cyanocobalamin (vit B-12) 1,000 mcg/mL injection solution RxNorm: 287785 Milliliter 03/22/2017 No longer Active cyanocobalamin (vit B-12) 1,000 mcg/mL injection solution RxNorm: 839689 Milliliter 03/09/2017 No longer Active cyanocobalamin (vit B-12) 1,000 mcg/mL injection solution RxNorm: 693927 Milliliter 02/23/2017 No longer Active cyanocobalamin (vit B-12) 1,000 mcg/mL injection solution RxNorm: 942518 Milliliter 02/09/2017 No longer Active cyanocobalamin (vit B-12) 1,000 mcg/mL injection solution RxNorm: 028853 Milliliter 01/23/2017 No longer Active cyanocobalamin (vit B-12) 1,000 mcg/mL injection solution RxNorm: 492007 Milliliter 01/10/2017 No longer Active cyanocobalamin (vit B-12) 1,000 mcg/mL injection solution RxNorm: 069027 1Milliliter 12/28/2016 No longer Active cyanocobalamin (vit B-12) 1,000 mcg/mL injection solution RxNorm: 914874 Milliliter 12/14/2016 No longer Active cyanocobalamin (vit B-12) 1,000 mcg/mL injection solution RxNorm: 090655 Milliliter 11/24/2016 No longer Active cyanocobalamin (vit B-12) 1,000 mcg/mL injection solution RxNorm: 876868 1Milliliter 11/07/2016 No longer Active cyanocobalamin (vit B-12) 1,000 mcg/mL injection solution RxNorm: 804101 Milliliter 10/24/2016 No longer Active cyanocobalamin (vit B-12) 1,000 mcg/mL injection solution RxNorm: 826622 1Milliliter 09/29/2016 No longer Active cyanocobalamin (vit B-12) 1,000 mcg/mL injection solution RxNorm: 462776 Milliliter 08/29/2016 No longer Active cyanocobalamin (vit B-12) 1,000 mcg/mL injection solution RxNorm: 648843 Milliliter 08/04/2016 No longer Active cyanocobalamin (vit B-12) 1,000 mcg/mL injection solution RxNorm: 093274 Milliliter 07/21/2016 No longer Active cyanocobalamin (vit B-12) 1,000 mcg/mL injection solution RxNorm: 760640 1Milliliter 07/05/2016 No longer Active cyanocobalamin (vit B-12) 1,000 mcg/mL injection solution RxNorm: 180188 1Milliliter 06/22/2016 No longer Active cyanocobalamin (vit B-12) 1,000 mcg/mL injection solution RxNorm: 042117 Milliliter 06/09/2016 No longer Active cyanocobalamin (vit B-12) 1,000 mcg/mL injection solution RxNorm: 868286 1Milliliter 05/25/2016 No longer Active cyanocobalamin (vit B-12) 1,000 mcg/mL injection solution RxNorm: 542139 Milliliter 05/10/2016 No longer Active cyanocobalamin (vit B-12) 1,000 mcg/mL injection solution RxNorm: 622717 Milliliter 04/26/2016 No longer Active cyanocobalamin (vit B-12) 1,000 mcg/mL injection solution RxNorm: 278258 Milliliter 04/11/2016 No longer Active cyanocobalamin (vit B-12) 1,000 mcg/mL injection solution RxNorm: 785707 Milliliter 03/31/2016 No longer Active cyanocobalamin (vit B-12) 1,000 mcg/mL injection solution RxNorm: 795517 1Milliliter 03/15/2016 No longer Active cyanocobalamin (vit B-12) 1,000 mcg/mL injection solution RxNorm: 826245 Milliliter 02/25/2016 No longer Active cyanocobalamin (vit B-12) 1,000 mcg/mL injection solution RxNorm: 590295 1Milliliter 02/02/2016 No longer Active cyanocobalamin (vit B-12) 1,000 mcg/mL injection solution RxNorm: 538200 Milliliter 01/18/2016 No longer Active cyanocobalamin (vit B-12) 1,000 mcg/mL injection solution RxNorm: 374642 Milliliter 12/29/2015 No longer Active cyanocobalamin (vit B-12) 1,000 mcg/mL injection solution RxNorm: 622040 Milliliter 12/08/2015 No longer Active cyanocobalamin (vit B-12) 1,000 mcg/mL injection solution RxNorm: 621509 Milliliter 11/23/2015 No longer Active cyanocobalamin (vit B-12) 1,000 mcg/mL injection solution RxNorm: 237156 Milliliter 11/11/2015 No longer Active cyanocobalamin (vit B-12) 1,000 mcg/mL injection solution RxNorm: 126740 1Milliliter 10/29/2015 No longer Active cyanocobalamin (vit B-12) 1,000 mcg/mL injection solution RxNorm: 268259 1Milliliter 10/12/2015 No longer Active cyanocobalamin (vit B-12) 1,000 mcg/mL injection solution RxNorm: 834326 1Milliliter 09/29/2015 No longer Active cyanocobalamin (vit B-12) 1,000 mcg/mL injection solution RxNorm: 682728 1Milliliter 09/17/2015 No longer Active cyanocobalamin (vit B-12) 1,000 mcg/mL injection solution RxNorm: 448253 1Milliliter 09/03/2015 No longer Active cyanocobalamin (vit B-12) 1,000 mcg/mL injection solution RxNorm: 932141 Milliliter 08/17/2015 No longer Active cyanocobalamin (vit B-12) 1,000 mcg/mL injection solution RxNorm: 755862 Milliliter 08/06/2015 No longer Active cyanocobalamin (vit B-12) 1,000 mcg/mL injection solution RxNorm: 692441 Milliliter 07/22/2015 No longer Active cyanocobalamin (vit B-12) 1,000 mcg/mL injection solution RxNorm: 128506 Milliliter 07/08/2015 No longer Active cyanocobalamin (vit B-12) 1,000 mcg/mL injection solution RxNorm: 465028 Milliliter 06/23/2015 No longer Active cyanocobalamin (vit B-12) 1,000 mcg/mL injection solution RxNorm: 456880 1Milliliter 06/08/2015 No longer Active cyanocobalamin (vit B-12) 1,000 mcg/mL injection solution RxNorm: 671582 Milliliter 05/27/2015 No longer Active cyanocobalamin (vit B-12) 1,000 mcg/mL injection solution RxNorm: 779529 1Milliliter 05/12/2015 No longer Active cyanocobalamin (vit B-12) 1,000 mcg/mL injection kit RxNorm: 056353 kit 04/30/2015 No longer Active cyanocobalamin (vit B-12) 1,000 mcg/mL injection solution RxNorm: 241800 Milliliter 04/16/2015 No longer Active cyanocobalamin (vit B-12) 1,000 mcg/mL injection solution RxNorm: 079894 Milliliter 04/02/2015 No longer Active cyanocobalamin (vit B-12) 1,000 mcg/mL injection solution RxNorm: 525093 Milliliter 03/18/2015 No longer Active cyanocobalamin (vit B-12) 1,000 mcg/mL injection solution RxNorm: 134312 Milliliter 03/03/2015 No longer Active cyanocobalamin (vit B-12) 1,000 mcg/mL injection solution RxNorm: 602595 Milliliter 02/18/2015 No longer Active cyanocobalamin (vit B-12) 1,000 mcg/mL injection solution RxNorm: 466262 Milliliter 02/04/2015 No longer Active cyanocobalamin (vit B-12) 1,000 mcg/mL injection solution RxNorm: 641650 Milliliter 01/22/2015 No longer Active cyanocobalamin (vit B-12) 1,000 mcg/mL injection solution RxNorm: 671414 Milliliter 01/08/2015 No longer Active cyanocobalamin (vit B-12) 1,000 mcg/mL injection solution RxNorm: 139114 Milliliter 12/25/2014 No longer Active cyanocobalamin (vit B-12) 1,000 mcg/mL injection solution RxNorm: 080162 Milliliter 12/10/2014 No longer Active cyanocobalamin (vit B-12) 1,000 mcg/mL injection solution RxNorm: 856688 Milliliter 11/26/2014 No longer Active cyanocobalamin (vit B-12) 1,000 mcg/mL injection kit RxNorm: 369180 Milliliter 11/12/2014 No longer Active cyanocobalamin (vit B-12) 1,000 mcg/mL injection solution RxNorm: 725600 Milliliter 10/28/2014 No longer Active Immunizations Vaccine [...] (3rd IS) 3.20 uIU/mL 02/26/2018 Free T4 Uor879 FREE T4 0.99 ng/dL 02/26/2018 Cbc With [...] 28.5 pg 02/26/2018 Cbc With Differential Ord2 [place]% 10.3 % 02/26/2018 Cbc With Differential Ord2 [...] 1.80 K/ul 02/26/2018 Cbc With Differential Ord2 [place] ABS# 0.7 K/ul 02/26/2018 Cbc With Differential Ord2 Eos ABS# 0.2 K/ul 02/26/2018 Cbc With Differential Ord2 Baso ABS# 0.0 K/ul 02/26/2018 B12 Qci674 B12 889.00 pg/ml 02/26/2018 Digoxin Ord9 DIGOXIN 0.7 NG/ML 11/23/2017 Comp Metabolic Wuv592 NA 142 mEq/L 11/23/2017 Comp Metabolic Vnx872 K 4.9 mEq/L 11/23/2017 Comp Metabolic Xoe143 CL 112 mEq/L 11/23/2017 Comp Metabolic Ebw433 CO2 18.0 mEq/L 11/23/2017 Comp Metabolic Qec894 ANION GAP 17 11/23/2017 Comp Metabolic Lpw138 GLUCOSE 123 mg/dL 11/23/2017 Comp Metabolic Rvw034 Creat 1.0 mg/dL 11/23/2017 Comp Metabolic Fdg645 eGFR 59 ml/min/1.73m2 11/23/2017 Comp Metabolic Hiu897 BUN 24 mg/dL 11/23/2017 Comp Metabolic Ens824 B/C Ratio 25.0 Ratio 11/23/2017 Comp Metabolic Ctj590 CALCIUM 9.4 mg/dL 11/23/2017 Comp Metabolic Hdu557 ALK PHOS 56 U/L 11/23/2017 Comp Metabolic Fie536 AST(SGOT) 17 U/L 11/23/2017 Comp Metabolic Wmd701 ALT(SGPT) 16 U/L 11/23/2017 Comp Metabolic Vmb457 BILI T 0.7 mg/dL 11/23/2017 Comp Metabolic Uex152 ALBUMIN 3.8 g/dL 11/23/2017 Comp Metabolic Oin121 TPRO 6.2 g/dL 11/23/2017 Comp Metabolic Gay856 GLOB 2.4 g/dL 11/23/2017 Comp Metabolic Uul642 A/G Ratio 1.6 Ratio 11/23/2017 Comp Metabolic Mom333 Osmo 289 mOsmo 11/23/2017 Free T4 Hau947 FREE T4 1.04 ng/dL 11/23/2017 %Hba1C Ccn482 % HbA1c 96061- 6 6.4 % 11/23/2017 %Hba1C Off360 Gluc Ave 137 mg/dL 11/23/2017 Lipid Ord30 CHOL 179 mg/dL 11/23/2017 Lipid Ord30 HDL 51.0 mg/dl 11/23/2017 Lipid Ord30 TRIG 134 mg/dL 11/23/2017 Lipid Ord30 LDL 101 mg/dL 11/23/2017 Lipid Ord30 C/HDL 3.5 Ratio 11/23/2017 Tsh Ord6 TSH (3rd IS) 1.00 uIU/mL 11/23/2017 Microalbumin Tke023 MicroAlb <0.7 mg/dL 11/23/2017 Comp Metabolic Tnj194 NA 141 mEq/L 01/23/2017 Comp Metabolic Khe829 K 4.5 mEq/L 01/23/2017 Comp Metabolic Lqi794 CL 107 mEq/L 01/23/2017 Comp Metabolic Zly198 CO2 21.0 mEq/L 01/23/2017 Comp Metabolic Stl593 ANION GAP 18 01/23/2017 Comp Metabolic Mxm167 GLUCOSE 138 mg/dL 01/23/2017 Comp Metabolic Bnl021 Creat 1.0 mg/dL 01/23/2017 Comp Metabolic Auy979 eGFR 56 ml/min/1.73m2 01/23/2017 Comp Metabolic Mnm643 BUN 26 mg/dL 01/23/2017 Comp Metabolic Zjn097 B/C Ratio 25.7 Ratio 01/23/2017 Comp Metabolic Mfk202 CALCIUM 9.0 mg/dL 01/23/2017 Comp Metabolic Wej097 ALK PHOS 37 U/L 01/23/2017 Comp Metabolic Cui857 AST(SGOT) 20 U/L 01/23/2017 Comp Metabolic Nuc434 ALT(SGPT) 25 U/L 01/23/2017 Comp Metabolic Ntx836 BILI T 0.9 mg/dL 01/23/2017 Comp Metabolic Icz196 ALBUMIN 3.8 g/dL 01/23/2017 Comp Metabolic Jug475 TPRO 6.5 g/dL 01/23/2017 Comp Metabolic Bsa982 GLOB 2.7 g/dL 01/23/2017 Comp Metabolic Ffz891 A/G Ratio 1.4 Ratio 01/23/2017 Comp Metabolic Aqq756 Osmo 288 mOsmo 01/23/2017 Free T4 Uqr622 FREE T4 1.05 ng/dL 01/23/2017 %Hba1C Nup526 % HbA1c 62460- 6 6.1 % 01/23/2017 %Hba1C Hmz527 Gluc Ave 128 mg/dL 01/23/2017 Tsh Ord6 hTSH II 1.68 uIU/mL 01/23/2017 Culture Urine [id number] URINE CULTURE SEE NOTES 11/10/2016 Culture Urine [id number] Continued Results 11/10/2016 Urine Culture Ucult Complete [...] Ord15 CALCIUM 9.3 mg/dL 09/29/2016 Free T4 Qxb455 FREE T4 0.99 ng/dL 09/07/2016 Cbc With [...] 30.0 pg 09/07/2016 Cbc With Differential Ord2 [place]% 9.8 % 09/07/2016 Cbc With Differential Ord2 [...] 1.75 K/ul 09/07/2016 Cbc With Differential Ord2 [place] ABS# 0.6 K/ul 09/07/2016 Cbc With Differential Ord2 Eos ABS# 0.1 K/ul 09/07/2016 Cbc With Differential Ord2 Baso ABS# 0.0 K/ul 09/07/2016 Tsh Ord6 hTSH II 1.41 uIU/mL 09/07/2016 Culture Urine [id number] URINE CULTURE SEE NOTES 06/27/2016 Lipid Ord30 CHOL 196 mg/dL 06/22/2016 Lipid Ord30 HDL 63.0 mg/dl 06/22/2016 Lipid Ord30 TRIG 154 mg/dL 06/22/2016 Lipid Ord30 LDL 102 mg/dL 06/22/2016 Lipid Ord30 C/HDL 3.1 Ratio 06/22/2016 Hepatic Fyd246 ALBUMIN 4.2 g/dL 06/22/2016 Hepatic Kmh196 TPRO 7.0 g/dL 06/22/2016 Hepatic Eev032 GLOB 2.8 g/dL 06/22/2016 Hepatic Ppf075 A/G Ratio 1.5 Ratio 06/22/2016 Hepatic Ivp002 ALK PHOS 54 U/L 06/22/2016 Hepatic Bml397 ALT(SGPT) 30 U/L 06/22/2016 Hepatic Tdx329 AST(SGOT) 24 U/L 06/22/2016 Hepatic Irk344 BILI T 1.1 mg/dL 06/22/2016 Hepatic Tpv811 BILI D 0.2 mg/dL 06/22/2016 Hepatic Quw991 BILI I 0.9 mg/dL 06/22/2016 Comp Metabolic Coe860 NA 139 mEq/L 06/14/2016 Comp Metabolic Txt773 K 4.6 mEq/L 06/14/2016 Comp Metabolic Lnv272 CL 108 mEq/L 06/14/2016 Comp Metabolic Wqe927 CO2 22.0 mEq/L 06/14/2016 Comp Metabolic Yki123 ANION GAP 14 06/14/2016 Comp Metabolic Iaa279 GLUCOSE 114 mg/dL 06/14/2016 Comp Metabolic Gac734 Creat 1.2 mg/dL 06/14/2016 Comp Metabolic Bwo945 eGFR 48 ml/min/1.73m2 06/14/2016 Comp Metabolic Pzq494 BUN 24 mg/dL 06/14/2016 Comp Metabolic Xot969 B/C Ratio 20.9 Ratio 06/14/2016 Comp Metabolic Xhr423 CALCIUM 9.9 mg/dL 06/14/2016 Comp Metabolic Cgt107 ALK PHOS 47 U/L 06/14/2016 Comp Metabolic Kmm859 AST(SGOT) 28 U/L 06/14/2016 Comp Metabolic Fxk138 ALT(SGPT) 32 U/L 06/14/2016 Comp Metabolic Rky795 BILI T 0.9 mg/dL 06/14/2016 Comp Metabolic Ott823 ALBUMIN 4.1 g/dL 06/14/2016 Comp Metabolic Prs049 TPRO 6.9 g/dL 06/14/2016 Comp Metabolic Dhc842 GLOB 2.8 g/dL 06/14/2016 Comp Metabolic Xgd350 A/G Ratio 1.5 Ratio 06/14/2016 Comp Metabolic Niy024 Osmo 282 mOsmo 06/14/2016 Tsh Ord6 hTSH II 1.26 uIU/mL 06/14/2016 Free T4 Plb762 FREE T4 1.09 ng/dL 06/14/2016 Tsh Ord6 hTSH II 0.28 uIU/mL 02/02/2016 Digoxin Ord9 DIGOXIN 0.7 NG/ML 02/02/2016 Free T4 Ggb382 FREE T4 1.23 ng/dL 02/02/2016 Hepatic Upk801 ALBUMIN 4.0 g/dL 02/02/2016 Hepatic Hql589 TPRO 7.0 g/dL 02/02/2016 Hepatic Pzf653 GLOB 3.0 g/dL 02/02/2016 Hepatic Npw802 A/G Ratio 1.3 Ratio 02/02/2016 Hepatic Bmz010 ALK PHOS 57 U/L 02/02/2016 Hepatic Dxq293 ALT(SGPT) 62 U/L 02/02/2016 Hepatic Xzi018 AST(SGOT) 54 U/L 02/02/2016 Hepatic Lhb943 BILI T 0.8 mg/dL 02/02/2016 Hepatic Adg510 BILI D 0.2 mg/dL 02/02/2016 Hepatic Gte027 BILI I 0.6 mg/dL 02/02/2016 Urine Culture Ucult Preliminary No Growth Day 1 11/25/2015 Urine Culture Ucult Complete No Growth Day 2 11/25/2015 Hepatic Rcu695 ALBUMIN 3.9 g/dL 11/11/2015 Hepatic Chc561 TPRO 7.0 g/dL 11/11/2015 Hepatic Lhc243 GLOB 3.1 g/dL 11/11/2015 Hepatic Wqt358 A/G Ratio 1.3 Ratio 11/11/2015 Hepatic Kup344 ALK PHOS 63 U/L 11/11/2015 Hepatic Nmy311 ALT(SGPT) 107 U/L 11/11/2015 Hepatic Fye246 AST(SGOT) 101 U/L 11/11/2015 Hepatic Ynm249 BILI T 0.6 mg/dL 11/11/2015 Hepatic Xkf667 BILI D 0.1 mg/dL 11/11/2015 Hepatic Zky874 BILI I 0.5 mg/dL 11/11/2015 Comp Metabolic Ebh208 NA 138 mEq/L 10/29/2015 Comp Metabolic Afx691 K 5.0 mEq/L 10/29/2015 Comp Metabolic Jwo228 CL 105 mEq/L 10/29/2015 Comp Metabolic Jlc783 CO2 23.0 mEq/L 10/29/2015 Comp Metabolic Fkk521 ANION GAP 15 10/29/2015 Comp Metabolic Xpw363 GLUCOSE 105 mg/dL 10/29/2015 Comp Metabolic Fzi511 Creat 1.0 mg/dL 10/29/2015 Comp Metabolic Tkj876 eGFR 55 ml/min/1.73m2 10/29/2015 Comp Metabolic Aam777 BUN 20 mg/dL 10/29/2015 Comp Metabolic Jqj262 B/C Ratio 19.4 Ratio 10/29/2015 Comp Metabolic Cvl129 CALCIUM 8.8 mg/dL 10/29/2015 Comp Metabolic Dou286 ALK PHOS 56 U/L 10/29/2015 Comp Metabolic Qjl805 AST(SGOT) 66 U/L 10/29/2015 Comp Metabolic Hiu639 ALT(SGPT) 78 U/L 10/29/2015 Comp Metabolic Uzy193 BILI T 0.7 mg/dL 10/29/2015 Comp Metabolic Tnh964 ALBUMIN 3.6 g/dL 10/29/2015 Comp Metabolic Gef741 TPRO 6.6 g/dL 10/29/2015 Comp Metabolic Ycr917 GLOB 3.0 g/dL 10/29/2015 Comp Metabolic Jou640 A/G Ratio 1.2 Ratio 10/29/2015 Comp Metabolic Bxc116 Osmo 279 mOsmo 10/29/2015 Comp Metabolic Dcn636 NA 136 mEq/L 09/03/2015 Comp Metabolic Sih227 K 4.4 mEq/L 09/03/2015 Comp Metabolic Bpk638 CL 103 mEq/L 09/03/2015 Comp Metabolic Niv402 CO2 24.0 mEq/L 09/03/2015 Comp Metabolic Akz686 ANION GAP 13 09/03/2015 Comp Metabolic Dfh263 GLUCOSE 87 mg/dL 09/03/2015 Comp Metabolic Cab214 Creat 1.1 mg/dL 09/03/2015 Comp Metabolic Ppc823 eGFR 53 ml/min/1.73m2 09/03/2015 Comp Metabolic Agi248 BUN 17 mg/dL 09/03/2015 Comp Metabolic Bdb054 B/C Ratio 16.2 Ratio 09/03/2015 Comp Metabolic Dbb037 CALCIUM 9.0 mg/dL 09/03/2015 Comp Metabolic Yit758 ALK PHOS 55 U/L 09/03/2015 Comp Metabolic Jes513 AST(SGOT) 83 U/L 09/03/2015 Comp Metabolic Ful345 ALT(SGPT) 126 U/L 09/03/2015 Comp Metabolic Rwe352 BILI T 0.9 mg/dL 09/03/2015 Comp Metabolic Qhl037 ALBUMIN 3.9 g/dL 09/03/2015 Comp Metabolic Ysf231 TPRO 6.8 g/dL 09/03/2015 Comp Metabolic Kvz567 GLOB 2.9 g/dL 09/03/2015 Comp Metabolic Uhw310 A/G Ratio 1.4 Ratio 09/03/2015 Comp Metabolic Rep449 Osmo 273 mOsmo 09/03/2015 Total T3 Ord42 TT3 0.6 ng/ml 07/09/2015 Tsh Ord6 hTSH II 1.62 uIU/mL 07/09/2015 Total T3 Ord42 TT3 0.5 ng/ml 04/02/2015 Free T4 Ecq427 FREE T4 1.23 ng/dL 04/02/2015 Tsh Ord6 [...] 4: J3420 07/04/2018 THER/PROPH/DIAG INJ SC/IM CPT-4: 74785 06/20/2018 THER/PROPH/DIAG INJ SC/IM CPT-4: 91832 06/06/2018 VITAMIN B12 INJECTION CPT- 4: J3420 06/06/2018 THER/PROPH/DIAG INJ SC/IM CPT-4: 63447 05/24/2018 THER/PROPH/DIAG INJ SC/IM CPT-4: 53404 05/09/2018 THER/PROPH/DIAG INJ SC/IM CPT-4: 04814 04/26/2018 VITAMIN B12 INJECTION CPT- 4: J3420 04/26/2018 THER/PROPH/DIAG INJ SC/IM CPT-4: 35076 04/12/2018 THER/PROPH/DIAG INJ SC/IM CPT-4: 47777 03/30/2018 THER/PROPH/DIAG INJ SC/IM CPT-4: 18870 03/16/2018 VITAMIN B12 INJECTION CPT- 4: J3420 03/16/2018 ADMIN INFLUENZA VIRUS VAC CPT-4: G0008 03/16/2018 FLU VACC PRSV FREE INC ANTIG Formatting Model/CDA Sections, Assigned to/Nga Ojeda CPT-4: 33359Jsvyevr 03/16/2018 THER/PROPH/DIAG INJ SC/IM CPT-4: 70355 03/02/2018 THER/PROPH/DIAG INJ SC/IM CPT-4: 88204 02/08/2018 THER/PROPH/DIAG INJ SC/IM CPT-4: 33163 01/24/2018 THER/PROPH/DIAG INJ SC/IM CPT-4: 16038 01/10/2018 THER/PROPH/DIAG INJ SC/IM CPT-4: 19620 12/27/2017 VITAMIN B12 INJECTION CPT- 4: J3420 12/27/2017 THER/PROPH/DIAG INJ SC/IM CPT-4: 21023 12/12/2017 THER/PROPH/DIAG INJ SC/IM CPT-4: 35046 12/01/2017 VITAMIN B12 INJECTION CPT- 4: J3420 12/01/2017 THER/PROPH/DIAG INJ SC/IM CPT-4: 80103 11/17/2017 THER/PROPH/DIAG INJ SC/IM CPT-4: 70872 11/02/2017 THER/PROPH/DIAG INJ SC/IM CPT-4: 30384 10/20/2017 THER/PROPH/DIAG INJ SC/IM CPT-4: 73394 10/06/2017 THER/PROPH/DIAG INJ SC/IM CPT-4: 07616 09/21/2017 TRIAMCINOLONE ACET INJ NOS CPT-4: J3301 09/15/2017 THER/PROPH/DIAG INJ SC/IM CPT-4: 40038 09/07/2017 THER/PROPH/DIAG INJ SC/IM CPT-4: 51133 08/24/2017 THER/PROPH/DIAG INJ SC/IM CPT-4: 92447 07/06/2017 THER/PROPH/DIAG INJ SC/IM CPT-4: 66962 06/20/2017 TRIAMCINOLONE ACET INJ NOS CPT-4: J3301 06/20/2017 PPPS, SUBSEQ VISIT CPT- 4: G0439 06/05/2017 THER/PROPH/DIAG INJ SC/IM CPT-4: 80644 06/05/2017 THER/PROPH/DIAG INJ SC/IM CPT-4: 93666 05/25/2017 VITAMIN B12 INJECTION CPT- 4: J3420 05/25/2017 THER/PROPH/DIAG INJ SC/IM CPT-4: 96926 05/16/2017 THER/PROPH/DIAG INJ SC/IM CPT-4: 85009 05/01/2017 THER/PROPH/DIAG INJ SC/IM CPT-4: 35953 04/18/2017 THER/PROPH/DIAG INJ SC/IM CPT-4: 52215 04/06/2017 ADMIN INFLUENZA VIRUS VAC CPT-4: G0008 03/22/2017 FLU VACC PRSV FREE INC ANTIG CPT-4: 52541 03/22/2017 THER/PROPH/DIAG INJ SC/IM CPT-4: 72372 03/09/2017 THER/PROPH/DIAG INJ SC/IM CPT-4: 31754 02/23/2017 THER/PROPH/DIAG INJ SC/IM CPT-4: 79235 02/09/2017 THER/PROPH/DIAG INJ SC/IM CPT-4: 69832 01/23/2017 THER/PROPH/DIAG INJ SC/IM CPT-4: 93263 01/10/2017 THER/PROPH/DIAG INJ SC/IM CPT-4: 36142 12/28/2016 THER/PROPH/DIAG INJ SC/IM CPT-4: 97517 12/14/2016 THER/PROPH/DIAG INJ SC/IM CPT-4: 96350 11/24/2016 URINALYSIS NONAUTO W/O SCOPE CPT-4: 69488 11/07/2016 THER/PROPH/DIAG INJ SC/IM CPT-4: 18956 11/07/2016 THER/PROPH/DIAG INJ SC/IM CPT-4: 88051 10/24/2016 THER/PROPH/DIAG INJ SC/IM CPT-4: 18248 09/29/2016 THER/PROPH/DIAG INJ SC/IM CPT-4: 35806 08/29/2016 THER/PROPH/DIAG INJ SC/IM CPT-4: 63343 08/04/2016 THER/PROPH/DIAG INJ SC/IM CPT-4: 30347 07/21/2016 THER/PROPH/DIAG INJ SC/IM CPT-4: 98105 07/05/2016 THER/PROPH/DIAG INJ SC/IM CPT-4: 04847 06/22/2016 URINALYSIS NONAUTO W/O SCOPE CPT-4: 69161 06/22/2016 THER/PROPH/DIAG INJ SC/IM CPT-4: 00730 06/09/2016 PPPS, SUBSEQ VISIT CPT- 4: G0439 05/30/2016 ADMIN PNEUMOCOCCAL VACCINE SNOMED CT: 37932037 CPT-4: G0009 05/25/2016 Pneumococcal Polysaccharide Vaccine, 23-Valent, Ad CPT-4: 65563 05/25/2016 THER/PROPH/DIAG INJ SC/IM CPT-4: 17345 05/25/2016 THER/PROPH/DIAG INJ SC/IM CPT-4: 91206 05/10/2016 TRIAMCINOLONE ACET INJ NOS CPT-4: J3301 04/26/2016 VITAMIN B12 INJECTION CPT- 4: J3420 04/26/2016 THER/PROPH/DIAG INJ SC/IM CPT-4: 85849 04/11/2016 THER/PROPH/DIAG INJ SC/IM CPT-4: 67779 03/31/2016 ADMIN INFLUENZA VIRUS VAC CPT-4: G0008 03/15/2016 FLU VACC 4 STEPHANIE [address] YRS PLUS IM SNOMED CT: 99170469 CPT-4: 52506 03/15/2016 THER/PROPH/DIAG INJ SC/IM CPT-4: 63579 02/25/2016 THER/PROPH/DIAG INJ SC/IM CPT-4: 79454 02/02/2016 THER/PROPH/DIAG INJ SC/IM CPT-4: 20166 01/18/2016 VITAMIN B12 INJECTION CPT- 4: J3420 12/29/2015 THER/PROPH/DIAG INJ SC/IM CPT-4: 77072 12/29/2015 THER/PROPH/DIAG INJ SC/IM CPT-4: 26252 12/08/2015 THER/PROPH/DIAG INJ SC/IM CPT-4: 48321 11/23/2015 URINALYSIS NONAUTO W/O SCOPE CPT-4: 07791 11/23/2015 THER/PROPH/DIAG INJ SC/IM CPT-4: 77203 11/11/2015 THER/PROPH/DIAG INJ SC/IM CPT-4: 50140 10/29/2015 THER/PROPH/DIAG INJ SC/IM CPT-4: 19349 10/12/2015 VITAMIN B12 INJECTION CPT- 4: J3420 10/12/2015 THER/PROPH/DIAG INJ SC/IM CPT-4: 74626 09/29/2015 THER/PROPH/DIAG INJ SC/IM CPT-4: 26937 09/17/2015 THER/PROPH/DIAG INJ SC/IM CPT-4: 09224 09/03/2015 THER/PROPH/DIAG INJ SC/IM CPT-4: 08024 08/17/2015 THER/PROPH/DIAG INJ SC/IM CPT-4: 60175 08/06/2015 THER/PROPH/DIAG INJ SC/IM CPT-4: 87904 07/22/2015 THER/PROPH/DIAG INJ SC/IM CPT-4: 30812 07/08/2015 THER/PROPH/DIAG INJ SC/IM CPT-4: 49343 06/23/2015 THER/PROPH/DIAG INJ SC/IM CPT-4: 83719 06/08/2015 THER/PROPH/DIAG INJ SC/IM CPT-4: 73097 05/27/2015 DESTRUCT PREMALG LESION CPT-4: 42592 05/19/2015 DESTRUCT PREMALG LES 2-14 CPT-4: 48881 05/19/2015 THER/PROPH/DIAG INJ SC/IM CPT-4: 61417 05/12/2015 VITAMIN B12 INJECTION CPT- 4: J3420 05/12/2015 THER/PROPH/DIAG INJ SC/IM CPT-4: 67717 04/30/2015 VITAMIN B12 INJECTION CPT- 4: J3420 04/30/2015 THER/PROPH/DIAG INJ SC/IM CPT-4: 61283 04/16/2015 THER/PROPH/DIAG INJ SC/IM CPT-4: 47517 04/02/2015 VITAMIN B12 INJECTION CPT- 4: J3420 04/02/2015 THER/PROPH/DIAG INJ SC/IM CPT-4: 58830 03/18/2015 THER/PROPH/DIAG INJ SC/IM CPT-4: 38878 03/03/2015 THER/PROPH/DIAG INJ SC/IM CPT-4: 27157 02/18/2015 THER/PROPH/DIAG INJ SC/IM CPT-4: 98144 02/04/2015 VITAMIN B12 INJECTION CPT- 4: J3420 02/04/2015 THER/PROPH/DIAG INJ SC/IM CPT-4: 57496 01/22/2015 THER/PROPH/DIAG INJ SC/IM CPT-4: 44294 01/08/2015 VITAMIN B12 INJECTION CPT- 4: J3420 01/08/2015 THER/PROPH/DIAG INJ SC/IM CPT-4: 95496 12/25/2014 VITAMIN B12 INJECTION CPT- 4: J3420 12/25/2014 THER/PROPH/DIAG INJ SC/IM CPT-4: 04221 12/10/2014 VITAMIN B12 INJECTION CPT- 4: J3420 12/10/2014 THER/PROPH/DIAG INJ SC/IM CPT-4: 47698 11/26/2014 VITAMIN B12 INJECTION CPT- 4: J3420 11/26/2014 THER/PROPH/DIAG INJ SC/IM CPT-4: 63357 11/12/2014 VITAMIN B12 INJECTION CPT- 4: J3420 11/12/2014 THER/PROPH/DIAG INJ SC/IM CPT-4: 85330 10/28/2014 Vital Signs Date Vital 05/03/2018 Blood Pressure 1: 140/70 Code: 8480-6 BMI: 26.0 Code: 77276-7 Heart Rate 1: 70 bpm Height: 5'6" SpO2: 94% Weight: 161 lbs 04/26/2018 Height: 5'6" 02/26/2018 Blood Pressure 1: 130/72 Code: 8480-6 BMI: 27.9 Code: 07527-1 Heart Rate 1: 72 bpm Height: 5'6" SpO2: 93% Weight: 173 lbs 12/12/2017 Blood Pressure 1: 126/74 Code: 8480-6 BMI: 27.4 Code: 38961-0 Heart Rate 1: 83 bpm Height: 5'6" SpO2: 98% Weight: 170 lbs 12/04/2017 Blood Pressure 1: 104/68 Code: 8480-6 BMI: 28.2 Code: 31243-6 Heart Rate 1: 85 bpm Height: 5'6" SpO2: 95% Weight: 175 lbs 11/20/2017 Blood Pressure 1: 130/68 Code: 8480-6 BMI: 28.4 Code: 79917-9 Heart Rate 1: 80 bpm Height: 5'6" SpO2: 99% Weight: 176 lbs 11/02/2017 Height: 5'6" 09/15/2017 Blood Pressure 1: 134/74 Code: 8480-6 BMI: 28.4 Code: 50936-3 Heart Rate 1: 88 bpm Height: 5'6" SpO2: 98% Weight: 176 lbs 09/07/2017 Blood Pressure 1: 124/64 Code: 8480-6 Heart Rate 1: 90 bpm Height: SpO2: 97% Weight: 08/30/2017 Blood Pressure 1: 140/76 Code: 8480-6 BMI: 28.4 Code: 07873-8 Heart Rate 1: 90 bpm Height: 5'6" SpO2: 94% Weight: 176 lbs 07/06/2017 Blood Pressure 1: 132/66 Code: 8480-6 BMI: 29.4 Code: 60162-1 Heart Rate 1: 85 bpm Height: 5'6" SpO2: 97% Weight: 182 lbs 06/20/2017 Blood Pressure 1: 134/86 Code: 8480-6 Heart Rate 1: 90 bpm Height: SpO2: 98% Weight: 06/05/2017 BMI: 29.1 Code: 51916-5 Height: 5'6" Weight: 180 lbs 05/25/2017 Blood Pressure 1: 126/76 Code: 8480-6 BMI: 29.1 Code: 31844-4 Heart Rate 1: 77 bpm Height: 5'6" SpO2: 97% Weight: 180 lbs 03/23/2017 Blood Pressure 1: 142/84 Code: 8480-6 BMI: 29.1 Code: 77516-8 Heart Rate 1: 91 bpm Height: 5'6" SpO2: 97% Weight: 180 lbs 01/23/2017 Blood Pressure 1: 150/90 Code: 8480-6 BMI: 29.9 Code: 52078-3 Heart Rate 1: 81 bpm Height: 5'6" SpO2: 97% Weight: 185 lbs 11/02/2016 Blood Pressure 1: 148/78 Code: 8480-6 BMI: 29.7 Code: 15654-7 Heart Rate 1: 87 bpm Height: 5'6" SpO2: 97% Weight: 184 lbs 09/29/2016 Blood Pressure 1: 128/78 Code: 8480-6 BMI: 29.7 Code: 72547-8 Heart Rate 1: 78 bpm Height: 5'6" SpO2: 98% Weight: 184 lbs 07/26/2016 Blood Pressure 1: 138/72 Code: 8480-6 BMI: 30.0 Code: 01493-4 Heart Rate 1: 85 bpm Height: 5'6" SpO2: 97% Weight: 186 lbs 05/30/2016 Blood Pressure 1: 132/76 Code: 8480-6 BMI: 30.0 Code: 61680-7 Heart Rate 1: 80 bpm Height: 5'6" SpO2: 98% Waist Measure (cm): 99 cm Weight: 186 lbs 05/25/2016 Blood Pressure 1: 132/76 Code: 8480-6 BMI: 30.0 Code: 62884-2 Heart Rate 1: 80 bpm Height: 5'6" SpO2: 96% Weight: 186 lbs 02/25/2016 Blood Pressure 1: 110/64 Code: 8480-6 Heart Rate 1: 82 bpm Height: SpO2: 96% Weight: 01/25/2016 Blood Pressure 1: 118/70 Code: 8480-6 BMI: 30.0 Code: 98340-2 Heart Rate 1: 78 bpm Height: 5'6" SpO2: 97% Weight: 186 lbs 11/11/2015 Blood Pressure 1: 128/82 Code: 8480-6 BMI: 29.2 Code: 76692-2 Heart Rate 1: 86 bpm Height: 5'6" SpO2: 96% Temperature: 36.4 (C) / 97.6 (F) Weight: 181 lbs 10/12/2015 Blood Pressure 1: 118/70 Code: 8480-6 BMI: 29.2 Code: 50453-5 Heart Rate 1: 81 bpm Height: 5'6" SpO2: 95% Weight: 181 lbs 09/03/2015 Blood Pressure 1: 138/78 Code: 8480-6 BMI: 29.9 Code: 03135-2 Heart Rate 1: 88 bpm Height: 5'6" SpO2: 97% Weight: 185 lbs 05/19/2015 Blood Pressure 1: 146/78 Code: 8480-6 BMI: 30.0 Code: 06609-7 Heart Rate 1: 66 bpm Height: 5'6" SpO2: 97% Weight: 186 lbs 05/12/2015 Blood Pressure 1: 120/70 Code: 8480-6 BMI: 29.9 Code: 61230-2 Heart Rate 1: 89 bpm Height: 5'6" SpO2: 95% Weight: 185 lbs 01/13/2015 Blood Pressure 1: 140/90 Code: 8480-6 BMI: 30.3 Code: 81424-4 Heart Rate 1: 84 bpm Height: 5'6" SpO2: 95% Weight: 188 lbs 12/16/2014 Blood Pressure 1: 140/82 Code: 8480-6 BMI: 29.5 Code: 21803-5 Heart Rate 1: 86 bpm Height: 5'6" [...] data Encounters Encounter Performer Location Codes Date ([id number]) [id number] EST. PATIENT, LEVEL IV Diagnosis: Essential (primary) hypertension[ICD10: I10] Diagnosis: Type 2 diabetes mellitus without complications[ICD10: E11.9] Yarely Vega MD, [facility] CPT-4: 08493 05/03/2018 ([id number]) 89667 EST. PATIENT, LEVEL III Diagnosis: Pain in left shoulder[ICD10: M25.512] Diagnosis: Pain in right shoulder[ICD10: M25.511] Yarely Vega MD, [facility] CPT-4: 89193 02/26/2018 ([id number]) 06599 EST. PATIENT, LEVEL III Diagnosis: Nausea[ICD10: R11.0] Diagnosis: Cough[ICD10: R05] Diagnosis: 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 factor deficiency[ICD10: D51.0] Janet Vega MD, [facility] CPT-4: 25410 12/12/2017 ([id number]) 40821 EST. PATIENT, LEVEL IV Diagnosis: Acute bronchitis due to Hemophilus influenzae[ICD10: J20.1] Diagnosis: Cough[ICD10: R05] Yarely Vega MD, [facility] CPT-4: 41642 12/04/2017 ([id number]) 00891 EST. PATIENT, LEVEL IV Diagnosis: Essential (primary) hypertension[ICD10: I10] Diagnosis: Cough[ICD10: R05] Diagnosis: Chronic atrial fibrillation[ICD10: I48.2] Yarely Vega MD, [facility] CPT-4: 67352 11/20/2017 ([id number]) 91133 EST. PATIENT, LEVEL III Diagnosis: Cough[ICD10: R05] Diagnosis: Acute upper respiratory infection, unspecified[ICD10: J06.9] Janet Vega MD, [facility] CPT-4: 27436 09/15/2017 [id number] EST. PATIENT, LEVEL III Diagnosis: Laceration without foreign body of right forearm, initial encounter[ICD10: S51.811A] Diagnosis: Other vitamin B12 deficiency anemias[ICD10: D51.8] Brianna Vega MD, [facility] CPT-4: 63401 09/07/2017 ([id number]) 32699 EST. PATIENT, LEVEL IV Diagnosis: Chronic atrial fibrillation[ICD10: I48.2] Diagnosis: Other allergic rhinitis[ICD10: J30.89] Diagnosis: Encounter for therapeutic drug level monitoring[ICD10: Z51.81] Yarely Vega MD, [facility] CPT-4: 19008 08/30/2017 ([id number]) 03260 EST. PATIENT, LEVEL IV Diagnosis: Atrophy of thyroid (acquired)[ICD10: E03.4] Diagnosis: Cough[ICD10: R05] Diagnosis: Laceration without foreign body of left forearm, initial encounter[ICD10: S51.812A] Diagnosis: Candidiasis of skin and nail[ICD10: B37.2] Diagnosis: Other vitamin B12 deficiency anemias[ICD10: D51.8] Diagnosis: Slow transit constipation[ICD10: K59.01] Yarely Vega MD, [facility] CPT-4: 16770 07/06/2017 [id number] EST. PATIENT, LEVEL III Diagnosis: Other vitamin B12 deficiency anemias[ICD10: D51.8] Diagnosis: Acute laryngopharyngitis[ICD10: J06.0] Diagnosis: Other allergic rhinitis[ICD10: J30.89] Brianna Vega MD, [facility] CPT- 4: 90197 06/20/2017 ([id number]) 90729 EST. PATIENT, LEVEL IV Diagnosis: Essential (primary) hypertension[ICD10: I10] Diagnosis: Chronic atrial fibrillation[ICD10: I48.2] Diagnosis: Atrophy of thyroid (acquired)[ICD10: E03.4] Diagnosis: 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 factor deficiency[ICD10: D51.0] Yarely Vega MD, [facility] CPT-4: 56183 05/25/2017 ([id number]) 37827 EST. 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 PATIENT, LEVEL IV Diagnosis: Type 2 diabetes mellitus without complications[ICD10: E11.9] Diagnosis: Essential (primary) hypertension[ICD10: I10] Diagnosis: Headache[ICD10: R51] Diagnosis: Atrophy of thyroid (acquired)[ICD10: E03.4] Diagnosis: Vitamin B12 deficiency anemia, unspecified[ICD10: D51.9] Yarely Vega MD, [facility] CPT-4: 32854 01/23/2017 [id number] EST. PATIENT, LEVEL III Diagnosis: Low back pain[ICD10: M54.5] Diagnosis: Pain in thoracic spine[ICD10: M54.6] Brianna Vega MD, [facility] CPT- 4: 93088 11/02/2016 ([id number]) 21347 EST. PATIENT, LEVEL IV Diagnosis: Essential (primary) hypertension[ICD10: I10] Diagnosis: Other vitamin B12 deficiency anemias[ICD10: D51.8] Diagnosis: Generalized abdominal pain[ICD10: R10.84] Yarely Vega MD, [facility] CPT-4: 61170 09/29/2016 ([id number]) 27700 EST. PATIENT, LEVEL IV Diagnosis: Essential (primary) hypertension[ICD10: I10] Yarely Vega MD, [facility] CPT-4: 78387 07/26/2016 ([id number]) 68194 EST. PATIENT, LEVEL IV Diagnosis: Benign lipomatous neoplasm of skin and subcutaneous tissue of right leg[ICD10: D17.23] Diagnosis: Pain in right ankle and joints of right foot[ICD10: M25.571] Diagnosis: Encounter for immunization[ICD10: Z23] Diagnosis: Vitamin B12 deficiency anemia, unspecified[ICD10: D51.9] Yarely Vega MD, [facility] CPT-4: 29131 05/25/2016 [id number] EST. PATIENT, LEVEL III Diagnosis: Other chest pain[ICD10: R07.89] Diagnosis: Other vitamin B12 deficiency anemias[ICD10: D51.8] Brianna Vega MD, [facility] CPT-4: 30398 02/25/2016 ([id number]) 14152 EST. 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 PATIENT, LEVEL III Diagnosis: Other vitamin B12 deficiency anemias[ICD10: D51.8] Diagnosis: Acute nasopharyngitis [common cold][ICD10: J00] Diagnosis: Other allergic rhinitis[ICD10: J30.89] Brianna Vega MD, [facility] CPT- 4: 99808 11/11/2015 ([id number]) 53511 EST. PATIENT, LEVEL IV Diagnosis: Essential tremor[ICD10: G25.0] Diagnosis: Chronic fatigue, unspecified[ICD10: R53.82] Diagnosis: Other hypersomnia[ICD10: G47.19] Diagnosis: Essential (primary) hypertension[ICD10: I10] Yarely Vega MD, [facility] CPT-4: 34006 10/12/2015 ([id number]) 03700 EST. PATIENT, LEVEL IV Diagnosis: Essential (primary) hypertension[ICD10: I10] Diagnosis: Chronic atrial fibrillation[ICD10: I48.2] Diagnosis: Abnormal levels of other serum enzymes[ICD10: R74.8] Diagnosis: Type 2 diabetes mellitus without complications[ICD10: E11.9] Diagnosis: Vitamin B12 deficiency anemia, unspecified[ICD10: D51.9] Yarely Vega MD, [facility] CPT-4: 86674 09/03/2015 ([id number]) 05442 EST. PATIENT, LEVEL III Diagnosis: Nausea[ICD10: R11.0] Diagnosis: Essential tremor[ICD10: G25.0] Diagnosis: Actinic keratosis[ICD10: L57.0] Yarely Vega MD, [facility] CPT-4: 65526 05/19/2015 ([id number]) 64719 EST. PATIENT, LEVEL IV Diagnosis: Vitamin B12 deficiency anemia, unspecified[ICD10: D51.9] Diagnosis: Chronic atrial fibrillation[ICD10: I48.2] Diagnosis: Headache[ICD10: R51] Diagnosis: Chronic fatigue, unspecified[ICD10: R53.82] Diagnosis: Cervicalgia[ICD10: M54.2] [facility] CPT-4: 52254 05/12/2015 ([id number]) [id number] EST. PATIENT, LEVEL IV Diagnosis: ESSENTIAL HYPERTENSION[ICD9: 401.9] Diagnosis: Afib[ICD9: 427.31] Diagnosis: Anxiety[ICD9: 300.00] Diagnosis: Insomnia[ICD9: 780.52] [facility] CPT-4: 31884 01/13/2015 ([id number]) OFFICE VISIT, NEW - LEVEL 4 Diagnosis: Hypothyroidism[ICD9: 244.9] Diagnosis: DIABETES TYPE II[ICD9: 250.00] Diagnosis: ESSENTIAL HYPERTENSION[ICD9: 401.9] Diagnosis: Afib[ICD9: 427.31] Diagnosis: Anxiety[ICD9: 300.00] Diagnosis: B12 deficiency[ICD9: 266.2] [facility] CPT-4: 79409 12/16/2014 Plan of Care Planned Activity Notes Codes Status Date Patient Education: Patient Medication Summary Completed 07/04/2018 Appointment: Injection 06/20/2018 Patient Education: Patient Medication Summary Completed 06/20/2018 App[facility]ment[facility] ([facility] min) Complex 06/07/2018 Appointment: Injection 06/06/2018 Patient Education: Patient Medication Summary Completed 06/06/2018 Appointment: [facility]ega [facility] (15 min) Moderate 05/31/2018 Appointment: Injection [...] flonase 05/03/2018 Appointment: [phone] [facility] [place] (15 min) Moderate 05/03/2018 Patient [...] intervention. 02/26/2018 App[facility]ment: [phone] [facility] [place] (15 min) Moderate 02/26/2018 Patient Education: Patient Medication Summary Completed 02/26/2018 Care Plan: Referral Order SNOMED-CT : [id number] Pending 02/26/2018 Appointment: Injection 02/08/2018 Patient Education: Patient Medication Summary Completed 02/08/2018 Appointment: Injection 01/24/2018 Patient Education: Patient Medication Summary Completed 01/24/2018 Appointment: Injection 01/10/2018 Patient Education: Patient Medication Summary Completed 01/10/2018 Appointment: Injection 12/27/2017 Patient Education: Patient Medication Summary Completed 12/27/2017 [facility]: [facility] [phone] [facility] [place] (15 min) Moderate 12/26/2017 Visit Plan: Srefhw-sppycinyp-qqslaztl protonix-follow up with Dr Navarro as scheduled Cough-recent bronchitis-symptoms improved-call if symptoms do not completely resolve 12/12/2017 Appointment: Janet Fam WPtel: [phone] [phone] [place] (15 min) Moderate 12/12/2017 [...] medication. 12/04/2017 Appointment: Yarely Vega WPtel: [phone] [facility] (15 min) Moderate 12/04/2017 Patient Education: [...] Fatigue/malaise -Pt was advsied to ask the Motor Equipment Captain the following: ask the heart doctor if [...] uncontrolled. 11/20/2017 App[facility]ment: [phone] [facility] [place] (15 min) Moderate 11/20/2017 Patient Education: [...] worse. 09/15/2017 Appointment: Janet Fam WPtel: [phone] [phone] [place] (15 min) Moderate 09/15/2017 Patient Education: Patient Medication Summary Completed 09/15/2017 Appointment: Yarely Vega WPtel: [facility] [place] (15 min) Moderate 09/11/2017 Visit Plan: Skin tear and Cellulitis - The patient was instructed in appropriate wound care. The patient was instructed to use the antibiotic ointment as per RX. The patient is to call for any change in symptoms, increase in size of the lesion, increase in pain, worsening redness, warmth, discharge. 09/07/2017 Appointment: Bri[facility] Otoole [facility]el[facility] [phone] [facility] [place] (10 min) Simple 09/07/2017 Patient Education: Patient Medication Summary Completed 09/07/2017 Visit Plan: Lipoma - left ankle - talk to dr. barnes about possible surgery/laser for treatment of lipoma. Fatigue/malaise -Pt was advsied to ask the Motor Equipment Captain the following: ask the heart doctor if there is an alternative to the amiodarone - you may be having side effects from the medication causing you to have pruritus (itching) and feeling like you have body aches, muscle aches, joint pain, fatigue, weight loss (decreased appetite), and pneumonia like symptoms. Congestion - claritin 10mg daily. 08/30/2017 Appointment: Yarely Vega WPtel: [facility] (15 min) Moderate 08/30/2017 Patient Education: Patient Medication Summary Completed 08/30/2017 Appointment: Injection 08/24/2017 Appointment: Yarely Vega WPtel: [phone] [facility] (15 min) Moderate 08/24/2017 Patient Education: [...] mucinex 07/06/2017 Appointment: Yarely Vega WPtel: [phone] [facility] (15 min) Moderate 07/06/2017 Patient Education: Patient [...] spray. 06/20/2017 Appointment[phone] (15 min) Moderate 06/20/2017 Patient Education: Patient [...] Bucky 06/05/2017 Appointment: Bri[facility] Otoole [facility]el[phone] [facility] - Annual Wellness Visit 06/05/2017 [...] 3 months or q 6 m [facility] based on previous levels of control. [...] wall. Fatigue - pt to discuss with Motor Equipment Captain about the possibility of amiodarone causing her [...] daily. 01/23/2017 [phone] [place] (15 min) Moderate 01/23/2017 Patient [...] improve. 11/02/2016 Appointment: Bri[facility] Otoole [facility]Ptel[phone] [place] (15 min) Moderate 11/02/2016 Patient Education: [...] carafate 09/29/2016 Appointment: [phone] [place] (15 min) Moderate 09/29/2016 Patient Education: Patient Medication Summary Completed 09/29/2016 Appointment: Yarely Vega WPtel: [phone] [facility] [place] (15 min) Moderate 09/27/2016 [phone] [place] (15 min) Moderate 09/20/2016 App[facility]ment: [phone] [...] acute concerns. 07/26/2016 App[facility]ment[phone] [place] (15 min) Moderate 07/26/2016 Patient [...] surrogate. 05/30/2016 Appointment: Bri[facility]toole [facility]Ptel[phone] [facility] - Annual Wellness Visit 05/30/2016 Patient [...] 05/25/2016 Care Plan: Referral Order SNOMED-CT : [id number] Pending 05/25/2016 Appointment: Injection 05/10/2016 Patient Education: Patient Medication Summary Completed 05/10/2016 Appointment: Injection 04/26/2016 Patient Education: Patient Medication Summary Completed 04/26/2016 Appointment: Injection 04/11/2016 Patient Education: Patient Medication Summary Completed 04/11/2016 Appointment: Injection 03/31/2016 Patient Education: Patient Medication Summary Completed 03/31/2016 Patient Education: Patient Medication Summary Completed 03/22/2016 Care Plan: [facility] [id number] Pending 03/22/2016 Appointment: Injection 03/15/2016 Patient Education: [...] any concerns. 02/25/2016 Appointment: Brianna Otoole WPtel[facility] (15 min) Moderate 02/25/2016 Patient Education: Patient [...] the patients recent sleep study - recommended [place] patient eval of pt - nocturnal [...] the patients recent sleep study - recommended [place] patient eval of pt - nocturnal [...] case [facility] She is interested in looking at assisted living facilities for her mom as Faiza's family is for assisted living placement sooner rather than later. 10/12/2015 App[facility]ment: [phone] (15 min) Moderate 10/12/2015 [...] Summary Completed 08/17/2015 App[facility]ment: [phone] [place] (15 min) Moderate 08/11/2015 Appointment: [...] 2 05/19/2015 Appointment: [facility] (30 min) [facility] 05/19/2015 Patient Education: Patient Medication Summary Completed [...] prn alprazolam. 01/13/2015 Appointment: [facility]are[facility]ega [facility]Ptel[facility] (15 min) Moderate 01/13/2015 Patient Education: [...] medications. 12/16/2014 Appointment: [facility]el[phone] [place] ([place]) New Patient 12/16/2014 Patient Education: [...] case with [facility] She is interested in looking at [...] the consequences of over-medication. . b12 injection decrease topamax to one [...] DOPA paperwork for health care surrogate. . Ivmsmh-[id number]-[id number] protonix-follow up with Dr Navarro as scheduled [...] Fatigue/malaise -Pt was advsied to ask the Motor Equipment Captain the following: ask the heart doctor if [...] if symptoms return, or with any concerns. melatonin can take 3mg to 10mg [...] increase in pain, worsening redness, warmth, discharge. Schedule thyroid ultrasound Add T3 and digoxin [...] Fatigue/malaise -Pt was advsied to ask the Motor Equipment Captain the following: ask the heart doctor if there is an alternative to the amiodarone - you may be having side effects from the medication causing you to have pruritus (itching) and feeling like you have body aches, muscle aches, joint pain, fatigue, weight loss (decreased appetite), and pneumonia like symptoms. Congestion - claritin 10mg daily. . Hypertension - well [...] the patients recent sleep study - recommended [place] [employer] patient eval of pt - nocturnal oxygen study - will order - if positive oxygen concentrator with humidification. use dry eye drops in the morning [...] wall. Fatigue - pt to discuss with Motor Equipment Captain about the possibility of amiodarone causing her [...] the patients recent sleep study - recommended [place] patient eval of pt - nocturnal oxygen study - will order - if positive oxygen concentrator with humidification. I suspect that she has the nocturnal hypoxemia due to her chronic atrial fibrillation and history of coronary artery disease with chronic systolic heart failure. . Medicare Exam - today we discussed [...] control. Abdominal pain - continue with carafate Stop Keflex Start Doxycycline - probiotic while [...] in the nasal steroid allergy spray. . URI - Pt advised to increase [...] continue with current treatment plan and mucinex loratadine - generic for CLARITIN - take [...]
--- OUTSIDE RECORDS SUMMARY | 2018-12-05 18:56 | XMS REPORT | CCD ---
Author Author [facility] Organization [facility] Address [address] [place] [address] Phone Care Team Providers Care Process Safety Manager Name Role Phone PP Unavailable CCM Unavailable Summary Purpose Interface Exchange Insurance Providers Payer name Policy type / Coverage type Covered constitution party ID Effective Begin Date Effective End Date WPS Medicare Part B Medicare Part B [id number] Unknown [employer] Life Insurance Medicare Part B [id number] Unknown [employer] in [place] Medicare Part B [id number] Unknown Family history Brother Diagnosis Age At Onset Heart Attack Unknown Mother Diagnosis Age At Onset Hypertension Unknown kidney disease Unknown Stroke Unknown Father Diagnosis Age At Onset Arthritis Unknown Social History Social History Element Codes Description Effective Dates Employment Unknown Retired worked at [employer] 11/20/2017 Marital status Unknown Single 12/16/[address]: 3552234 Former smoker 12/16/[address]: 345252625 Never drinks alcohol 12/16/2014 Allergies, Adverse Reactions, Alerts Substance Reaction Codes Entered Date Inactivated Date Status CODEINE RxNorm: 2670 05/25/2016 No Inactive Date Active ciprofloxacin RxNorm: 61579 12/16/2014 No Inactive Date Active MORPHINE SULFATE [...] Start Date Stop Date Status Fill Instructions Aricept 10 mg tablet RxNorm: 647718 Tablet(s) 1 Tablet(s) PO daily 06/25/2018 06/19/2019 Active hydrocodone 5 mg-acetaminophen 325 mg tablet RxNorm: 617442 1-2 Tablet(s) PO Q6 as needed for pain 06/20/2018 07/19/2018 Active Flonase Allergy Relief 50 mcg/actuation nasal spray,suspension RxNorm: 9115972 [place] 1 [place] NASAL BID 06/20/2018 10/17/2018 Active cyanocobalamin (vit B-12) 1,000 mcg/mL injection solution RxNorm: 090084 Milliliter(s) Inj 06/20/2018 06/20/2018 Inactive cyanocobalamin (vit B-12) 1,000 mcg/mL injection solution RxNorm: 758339 Milliliter(s) Inj 06/06/2018 06/06/2018 Inactive alprazolam 0.25 mg tablet RxNorm: 119011 1 Tablet(s) PO BID 05/25/2018 08/22/2018 Active hydrocodone 5 mg-acetaminophen 325 mg tablet RxNorm: 677139 1-2 Tablet(s) PO Q6 as needed for pain 05/24/2018 06/19/2018 Inactive cyanocobalamin (vit B-12) 1,000 mcg/mL injection solution RxNorm: 044597 Milliliter(s) Inj 05/24/2018 05/24/2018 Inactive cyanocobalamin (vit B-12) 1,000 mcg/mL injection solution RxNorm: 539874 Milliliter(s) Inj 05/09/2018 05/09/2018 Inactive Claritin 10 mg tablet RxNorm: 100832 TAKE 1 TABLET BY MOUTH ONCE DAILY 05/08/2018 05/02/2019 Active Generic For:CLARITIN 10MG 05/07/2018 9:13:47 AM cyanocobalamin (vit B-12) 1,000 mcg/mL injection solution RxNorm: 030612 INJECT ONE 1 ML EVERY TWO WEEKS 05/03/2018 04/03/2019 Active 05/03/2018 9:13:42 AM Mobic 15 mg tablet RxNorm: 935385 Tablet(s) 1 Tablet(s) PO daily 04/26/2018 04/20/2019 Active buspirone 15 mg tablet RxNorm: 341620 Tablet(s) TAKE 1 TABLET BY MOUTH TWICE DAILY 04/26/2018 04/20/2019 Active Generic For:BUSPAR 15MG 05/31/2017 9:19:20 AM Norvasc 5 mg tablet RxNorm: 300552 Tablet(s) 1 Tablet(s) PO daily 04/26/2018 04/20/2019 Active cyanocobalamin (vit B-12) 1,000 mcg/mL injection solution RxNorm: 577390 Milliliter(s) Inj 04/26/2018 04/26/2018 Inactive hydrocodone 5 mg-acetaminophen 325 mg tablet RxNorm: 033439 1-2 Tablet(s) PO Q6 as needed for pain 04/25/2018 05/23/2018 Inactive cyanocobalamin (vit B-12) 1,000 mcg/mL injection solution RxNorm: 035191 Milliliter(s) Inj 04/12/2018 04/12/2018 Inactive Topamax 25 mg tablet RxNorm: 447483 1 Tablet(s) PO BID 04/09/2018 05/02/2018 Inactive Generic For:TOPAMAX 25MG 12/06/2016 9:15:13 AM Zoloft 50 mg tablet RxNorm: 777871 TAKE 1 TABLET BY MOUTH ONCE DAILY 04/04/2018 12/29/2018 Active Generic For:ZOLOFT 50MG 04/04/2018 9:13:25 AM cyanocobalamin (vit B-12) 1,000 mcg/mL injection solution RxNorm: 879379 Milliliter(s) Inj 03/30/2018 03/30/2018 Inactive levothyroxine 125 mcg tablet RxNorm: 277286 TAKE 1 TABLET BY MOUTH EVERY DAY 03/26/2018 09/21/2018 Active Generic For:SYNTHROID 125MCG TAB 03/26/2018 9:15:59 AM liothyronine 5 mcg tablet RxNorm: 002030 TAKE 1 TABLET BY MOUTH TWICE DAILY 03/26/2018 09/21/2018 Active Generic For:CYTOMEL 5MCG 03/26/2018 9:15:54 AM hydrocodone 5 mg-acetaminophen 325 mg tablet RxNorm: 108555 1-2 Tablet(s) PO Q6 as needed for pain 03/19/2018 04/17/2018 Inactive cyanocobalamin (vit B-12) 1,000 mcg/mL injection solution RxNorm: 688702 Milliliter(s) Inj 03/16/2018 03/16/2018 Inactive Flonase Allergy Relief 50 mcg/actuation nasal spray,suspension RxNorm: 9786722 1 [place] NASAL BID 03/05/2018 06/19/2018 Inactive cyanocobalamin (vit B-12) 1,000 mcg/mL injection solution RxNorm: 646748 Milliliter(s) Inj 03/02/2018 03/02/2018 Inactive alprazolam 0.25 mg tablet RxNorm: 304222 1 Tablet(s) PO BID 02/28/2018 05/27/2018 Inactive cyanocobalamin (vit B-12) 1,000 mcg/mL injection solution RxNorm: 862991 Milliliter(s) Inj 02/08/2018 02/08/2018 Inactive cyanocobalamin (vit B-12) 1,000 mcg/mL injection solution RxNorm: 835530 Milliliter(s) Inj 01/24/2018 01/24/2018 Inactive albuterol sulfate 2.5 mg/3 mL (0.083 %) solution for nebulization RxNorm: 321047 3 Milliliter(s) INH Q6 PRN 01/24/2018 05/02/2018 Inactive Claritin 10 mg tablet RxNorm: 524146 1 Tablet(s) PO daily 01/15/2018 05/07/2018 Inactive cyanocobalamin (vit B-12) 1,000 mcg/mL injection solution RxNorm: 637330 Milliliter(s) Inj 01/10/2018 01/10/2018 Inactive hydrocodone 5 mg-acetaminophen 325 mg tablet RxNorm: 267007 1-2 Tablet(s) PO Q6 as needed for pain 01/09/2018 02/07/2018 Inactive cyanocobalamin (vit B-12) 1,000 mcg/mL injection solution RxNorm: 675226 Milliliter(s) Inj 12/27/2017 12/27/2017 Inactive cyanocobalamin (vit B-12) 1,000 mcg/mL injection solution RxNorm: 736218 1 Milliliter(s) Inj 12/12/2017 12/12/2017 Inactive Zofran ODT 4 mg disintegrating tablet RxNorm: 343772 1 Tablet(s) PO TID as needed 12/08/2017 12/09/2017 Inactive hydrocodone 2.5 mg-guaifenesin 200 mg/5 mL oral solution RxNorm: 135291 5 Milliliter(s) PO 12/04/2017 05/06/2018 Inactive doxycycline hyclate 100 mg capsule RxNorm: 0396060 1 Capsule(s) PO BID 12/04/2017 12/13/2017 Inactive cyanocobalamin (vit B-12) 1,000 mcg/mL injection solution RxNorm: 071835 Milliliter(s) Inj 12/01/2017 12/01/2017 Inactive Flonase Allergy Relief 50 mcg/actuation nasal spray,suspension RxNorm: 0817073 1 [place] NASAL BID 11/20/2017 2018 Inactive cyanocobalamin (vit B-12) 1,000 mcg/mL injection solution RxNorm: 372343 1 Milliliter(s) Inj 11/17/2017 11/17/2017 Inactive hydrocodone 5 mg-acetaminophen 325 mg tablet RxNorm: 767943 1-2 Tablet(s) PO Q6 as needed for pain 11/16/2017 12/15/2017 Inactive cyanocobalamin (vit B-12) 1,000 mcg/mL injection solution RxNorm: 333745 1 Milliliter(s) Inj 11/02/2017 11/02/2017 Inactive hydrocodone 5 mg-acetaminophen 325 mg tablet RxNorm: 149721 1-2 Tablet(s) PO Q6 as needed for pain 10/25/2017 11/15/2017 Inactive Claritin 10 mg tablet RxNorm: 182285 1 Tablet(s) PO daily 10/25/2017 11/19/2017 Inactive albuterol sulfate 2.5 mg/3 mL (0.083 %) solution for nebulization RxNorm: 782796 3 Milliliter(s) INH Q6 PRN 10/25/2017 01/23/2018 Inactive Claritin 10 mg tablet RxNorm: 174309 1 Tablet(s) PO daily 10/25/2017 10/24/2017 Inactive cyanocobalamin (vit B-12) 1,000 mcg/mL injection solution RxNorm: 579126 1 Milliliter(s) Inj 10/20/2017 10/20/2017 Inactive Zoloft 50 mg tablet RxNorm: 794539 TAKE 1 TABLET BY MOUTH ONCE DAILY 10/13/2017 04/03/2018 Inactive Generic For:ZOLOFT 50MG 10/13/2017 8:59:44 AM cyanocobalamin (vit B-12) 1,000 mcg/mL injection solution RxNorm: 265091 Milliliter(s) Inj 10/06/2017 10/06/2017 Inactive liothyronine 5 mcg tablet RxNorm: 056928 TAKE 1 TABLET BY MOUTH TWICE DAILY 10/03/2017 03/25/2018 Inactive Generic For:CYTOMEL 5MCG 10/03/2017 9:13:38 AM cyanocobalamin (vit B-12) 1,000 mcg/mL injection solution RxNorm: 906983 Milliliter(s) Inj 09/21/2017 09/21/2017 Inactive albuterol sulfate 2.5 mg/3 mL (0.083 %) solution for nebulization RxNorm: 342062 3 Milliliter(s) INH Q6 PRN 09/21/2017 10/24/2017 Inactive hydrocodone 5 mg-acetaminophen 325 mg tablet RxNorm: 644559 1-2 Tablet(s) PO Q6 as needed for pain 09/21/2017 10/20/2017 Inactive Kenalog 40 mg/mL suspension for injection RxNorm: 7897145 Milliliter(s) Inj 09/15/2017 09/15/2017 Inactive Keflex 500 mg capsule RxNorm: 846884 1 Capsule(s) PO TID 09/07/2017 09/16/2017 Inactive Please deliver to patient cyanocobalamin (vit B-12) 1,000 mcg/mL injection solution RxNorm: 370397 Milliliter(s) Inj 09/07/2017 09/07/2017 Inactive alprazolam 0.25 mg tablet RxNorm: 177843 1 Tablet(s) PO BID 09/06/2017 02/27/2018 Inactive Aricept 10 mg tablet RxNorm: 464465 1 Tablet(s) PO daily 09/06/2017 06/24/2018 Inactive hydrocodone 5 mg-acetaminophen 325 mg tablet RxNorm: 615239 1-2 Tablet(s) PO Q6 as needed for pain 08/24/2017 09/20/2017 Inactive cyanocobalamin (vit B-12) 1,000 mcg/mL injection solution RxNorm: 395792 Milliliter(s) Inj 08/24/2017 08/24/2017 Inactive Norvasc 5 mg tablet RxNorm: 413372 1 Tablet(s) PO daily 08/18/2017 04/25/2018 Inactive nystatin 100,000 unit/gram topical powder RxNorm: 703942 1 Gram(s) TOP QID 08/17/2017 08/26/2017 Inactive hydrocodone 5 mg-acetaminophen 325 mg tablet RxNorm: 824665 1-2 Tablet(s) PO Q6 as needed for pain 07/25/2017 08/23/2017 Inactive Tamiflu 75 mg capsule RxNorm: 397434 1 Capsule(s) PO BID 07/24/2017 12/11/2017 Inactive nystatin 100,000 unit/gram topical powder RxNorm: 565988 1 Gram(s) TOP QID 07/14/2017 07/22/2017 Inactive levothyroxine 125 mcg tablet RxNorm: 791105 Tablet(s) 1 Tablet(s) PO daily 07/10/2017 01/05/2018 Inactive nystatin 100,000 unit/gram topical powder RxNorm: 937901 1 Gram(s) TOP QID 07/06/2017 07/13/2017 Inactive cyanocobalamin (vit B-12) 1,000 mcg/mL injection solution RxNorm: 449737 Milliliter(s) Inj 07/06/2017 07/06/2017 Inactive Kenalog 40 mg/mL suspension for injection RxNorm: 6229676 1 Milliliter(s) Inj 06/20/2017 06/20/2017 Inactive doxycycline hyclate 100 mg capsule RxNorm: 4058947 1 Capsule(s) PO BID 06/20/2017 06/26/2017 Inactive cyanocobalamin (vit B-12) 1,000 mcg/mL injection solution RxNorm: 780963 Milliliter(s) Inj 06/20/2017 06/20/2017 Inactive Keflex 500 mg capsule RxNorm: 903029 1 Capsule(s) PO TID 06/14/2017 06/23/2017 Inactive Please deliver to patient Mobic 15 mg tablet RxNorm: 888062 1 Tablet(s) PO daily 06/14/2017 04/25/2018 Inactive cyanocobalamin (vit B-12) 1,000 mcg/mL injection solution RxNorm: 832090 Milliliter(s) Inj 06/05/2017 06/05/2017 Inactive buspirone 15 mg tablet RxNorm: 253375 TAKE 1 TABLET BY MOUTH TWICE DAILY 05/31/2017 04/25/2018 Inactive Generic For:BUSPAR 15MG 05/31/2017 9:19:20 AM cyanocobalamin (vit B-12) 1,000 mcg/mL injection solution RxNorm: 907214 Milliliter(s) Inj 05/25/2017 05/25/2017 Inactive hydrocodone 5 mg-acetaminophen 325 mg tablet RxNorm: 232281 1-2 Tablet(s) PO Q6 as needed for pain 05/25/2017 06/23/2017 Inactive amiodarone 200 mg tablet RxNorm: 505554 1/2 Tablet(s) PO daily 05/22/2017 No Stop Date Active cardiology decreased to 100mg daily cyanocobalamin (vit B-12) 1,000 mcg/mL injection solution RxNorm: 735313 Milliliter(s) Inj 05/16/2017 05/16/2017 Inactive Zofran ODT 4 mg disintegrating tablet RxNorm: 914306 1 Tablet(s) PO TID as needed 05/03/2017 05/04/2017 Inactive hydrocodone 5 mg-acetaminophen 325 mg tablet RxNorm: 664721 1-2 Tablet(s) PO Q6 as needed for pain 05/01/2017 05/05/2017 Inactive cyanocobalamin (vit B-12) 1,000 mcg/mL injection solution RxNorm: 281385 1 Milliliter(s) Inj 05/01/2017 05/01/2017 Inactive cyanocobalamin (vit B-12) 1,000 mcg/mL injection solution RxNorm: 066536 INJECT ONE 1 ML EVERY TWO WEEKS 04/26/2017 12/04/2018 Active 04/26/2017 9:08:52 AM Zoloft 50 mg tablet RxNorm: 620574 Tablet(s) TAKE 1 TABLET BY MOUTH DAILY 04/25/2017 10/12/2017 Inactive Generic For:ZOLOFT 50MG cyanocobalamin (vit B-12) 1,000 mcg/mL injection solution RxNorm: 240057 Milliliter(s) Inj 04/18/2017 04/18/2017 Inactive liothyronine 5 mcg tablet RxNorm: 223674 1 Tablet(s) PO BID 04/13/2017 10/02/2017 Inactive cyanocobalamin (vit B-12) 1,000 mcg/mL injection solution RxNorm: 455039 Milliliter(s) Inj 04/06/2017 04/06/2017 Inactive hydrocodone 5 mg-acetaminophen 325 mg tablet RxNorm: 504320 1-2 Tablet(s) PO Q6 as needed for pain 04/06/2017 04/10/2017 Inactive cyanocobalamin (vit B-12) 1,000 mcg/mL injection solution RxNorm: 202330 Milliliter(s) Inj 03/22/2017 03/22/2017 Inactive alprazolam 0.25 mg tablet RxNorm: 575272 1 Tablet(s) PO BID 03/17/2017 12/11/2017 Inactive alprazolam 0.25 mg tablet RxNorm: 318725 1 Tablet(s) PO BID 03/16/2017 09/05/2017 Inactive hydrocodone 5 mg-acetaminophen 325 mg tablet RxNorm: 145257 1-2 Tablet(s) PO Q6 as needed for pain 03/09/2017 03/13/2017 Inactive cyanocobalamin (vit B-12) 1,000 mcg/mL injection solution RxNorm: 905542 Milliliter(s) Inj 03/09/2017 03/09/2017 Inactive cyanocobalamin (vit B-12) 1,000 mcg/mL injection solution RxNorm: 517443 Milliliter(s) Inj 02/23/2017 02/23/2017 Inactive cyanocobalamin (vit B-12) 1,000 mcg/mL injection solution RxNorm: 024119 Milliliter(s) Inj 02/09/2017 02/09/2017 Inactive hydrocodone 5 mg-acetaminophen 325 mg tablet RxNorm: 804413 1-2 Tablet(s) PO Q6 as needed for pain 02/08/2017 02/12/2017 Inactive Topamax 25 mg tablet RxNorm: 760444 1 Tablet(s) PO BID 01/23/2017 05/22/2017 Inactive Generic For:TOPAMAX 25MG 12/06/2016 9:15:13 AM cyanocobalamin (vit B-12) 1,000 mcg/mL injection solution RxNorm: 119360 Milliliter(s) Inj 01/23/2017 01/23/2017 Inactive cyanocobalamin (vit B-12) 1,000 mcg/mL injection solution RxNorm: 444367 Milliliter(s) Inj 01/10/2017 01/10/2017 Inactive hydrocodone 5 mg-acetaminophen 325 mg tablet RxNorm: 514561 1-2 Tablet(s) PO Q6 as needed for pain 01/09/2017 01/13/2017 Inactive cyanocobalamin (vit B-12) 1,000 mcg/mL injection solution RxNorm: 147942 1 Milliliter(s) Inj 12/28/2016 12/28/2016 Inactive cyanocobalamin (vit B-12) 1,000 mcg/mL injection solution RxNorm: 409137 Milliliter(s) Inj 12/14/2016 12/14/2016 Inactive buspirone 15 mg tablet RxNorm: 164991 1 Tablet(s) PO BID 12/12/2016 05/30/2017 Inactive hydrocodone 5 mg-acetaminophen 325 mg tablet RxNorm: 297373 1-2 Tablet(s) PO Q6 as needed for pain 12/08/2016 12/12/2016 Inactive Topamax 25 mg tablet RxNorm: 110826 TAKE 1 TABLET BY MOUTH EVERY DAY AT BEDTIME 12/06/2016 01/22/2017 Inactive Generic For:TOPAMAX 25MG 12/06/2016 9:15:13 AM Lac-Hydrin Five 5 % lotion RxNorm: 288816 1 Gram(s) TOP daily 12/02/2016 05/02/2018 Inactive cyanocobalamin (vit B-12) 1,000 mcg/mL injection solution RxNorm: 185314 Milliliter(s) Inj 11/24/2016 11/24/2016 Inactive Ceftin 500 mg tablet RxNorm: 949019 1 Tablet(s) PO BID 11/11/2016 06/13/2017 Inactive Cipro 500 mg tablet RxNorm: 011565 1 Tablet(s) PO BID 11/11/2016 11/10/2016 Inactive Cipro 500 mg tablet RxNorm: 225697 1 Tablet(s) PO BID 11/11/2016 11/11/2016 Inactive cyanocobalamin (vit B-12) 1,000 mcg/mL injection solution RxNorm: 003269 1 Milliliter(s) Inj 11/07/2016 11/07/2016 Inactive hydrocodone 5 mg-acetaminophen 325 mg tablet RxNorm: 957658 1-2 Tablet(s) PO Q6 as needed for pain 11/02/2016 11/06/2016 Inactive cyanocobalamin (vit B-12) 1,000 mcg/mL injection solution RxNorm: 317898 Milliliter(s) Inj 10/24/2016 10/24/2016 Inactive levothyroxine 125 mcg tablet RxNorm: 053423 Tablet(s) 1 Tablet(s) PO daily 10/24/2016 04/21/2017 Inactive liothyronine 5 mcg tablet RxNorm: 115095 1 Tablet(s) PO BID 10/24/2016 04/12/2017 Inactive hydrocodone 5 mg-acetaminophen 325 mg tablet RxNorm: 379357 1-2 Tablet(s) PO Q6 as needed for pain 10/17/2016 10/21/2016 Inactive Keflex 500 mg capsule RxNorm: 251468 1 Capsule(s) PO TID 10/07/2016 10/06/2016 Inactive Keflex 500 mg capsule RxNorm: 827159 1 Capsule(s) PO TID 10/07/2016 10/16/2016 Inactive Please deliver to patient cyanocobalamin (vit B-12) 1,000 mcg/mL injection solution RxNorm: 142895 1 Milliliter(s) Inj 09/29/2016 09/29/2016 Inactive alprazolam 0.25 mg tablet RxNorm: 137941 1 Tablet(s) PO BID 09/20/2016 03/16/2017 Inactive Cozaar 100 mg tablet RxNorm: 744027 1 Tablet(s) PO daily 09/14/2016 No Stop Date Active metoprolol tartrate 50 mg tablet RxNorm: 293116 1/2 Tablet(s) PO BID 09/14/2016 12/12/2016 Inactive Zoloft 50 mg tablet RxNorm: 183387 Tablet(s) TAKE 1 TABLET BY MOUTH DAILY 09/14/2016 03/12/2017 Inactive Generic For:ZOLOFT 50MG liothyronine 5 mcg tablet RxNorm: 116616 1 Tablet(s) PO BID 09/14/2016 10/23/2016 Inactive Calmoseptine 0.44 %-20.6 % topical ointment RxNorm: 086671 1 Application TOP BID and as needed to sore on buttocks 09/07/2016 No Stop Date Active cyanocobalamin (vit B-12) 1,000 mcg/mL injection solution RxNorm: 092300 Milliliter(s) Inj 08/29/2016 08/29/2016 Inactive hydrocodone 5 mg-acetaminophen 325 mg tablet RxNorm: 457826 1-2 Tablet(s) PO Q6 as needed for pain 08/29/2016 10/16/2016 Inactive levothyroxine 125 mcg tablet RxNorm: 954316 1 Tablet(s) PO daily 08/25/2016 10/23/2016 Inactive Topamax 25 mg tablet RxNorm: 919888 TAKE 1 TABLET BY MOUTH EVERY DAY AT BEDTIME 08/17/2016 12/05/2016 Inactive Generic For:TOPAMAX 25MG 08/17/2016 2:14:37 PM hydrocodone 5 mg-acetaminophen 325 mg tablet RxNorm: 634801 1-2 Tablet(s) PO Q6 as needed for pain 08/11/2016 08/28/2016 Inactive hydrocodone 5 mg-acetaminophen 325 mg tablet RxNorm: 733341 1 -2 Tablet(s) PO Q6 as needed for pain 08/11/2016 08/18/2016 Inactive hydrocodone 5 mg-acetaminophen 325 mg tablet RxNorm: 131076 1 Tablet(s) PO Q6 as needed for pain 08/05/2016 08/10/2016 Inactive cyanocobalamin (vit B-12) 1,000 mcg/mL injection solution RxNorm: 926638 Milliliter(s) Inj 08/04/2016 08/04/2016 Inactive Norvasc 10 mg tablet RxNorm: 399224 1 Tablet(s) PO daily 07/26/2016 07/20/2017 Inactive alprazolam 0.25 mg tablet RxNorm: 200959 1 Tablet(s) PO QHS 07/21/2016 09/19/2016 Inactive Norvasc 5 mg tablet RxNorm: 795895 1 Tablet(s) PO daily 07/21/2016 07/25/2016 Inactive levothyroxine 125 mcg tablet RxNorm: 032157 1 Tablet(s) PO daily 07/21/2016 12/11/2017 Inactive cyanocobalamin (vit B-12) 1,000 mcg/mL injection solution RxNorm: 837529 Milliliter(s) Inj 07/21/2016 07/21/2016 Inactive Zoloft 50 mg tablet RxNorm: 059786 Tablet(s) TAKE 1 TABLET BY MOUTH DAILY 07/21/2016 09/13/2016 Inactive Generic For:ZOLOFT 50MG cyanocobalamin (vit B-12) 1,000 mcg/mL injection solution RxNorm: 689867 1 Milliliter(s) Inj 07/05/2016 07/05/2016 Inactive cyanocobalamin (vit B-12) 1,000 mcg/mL injection solution RxNorm: 821758 1 Milliliter(s) Inj 06/22/2016 06/22/2016 Inactive cyanocobalamin (vit B-12) 1,000 mcg/mL injection solution RxNorm: 736915 Milliliter(s) Inj 06/09/2016 06/09/2016 Inactive Aricept 10 mg tablet RxNorm: 706535 1 Tablet(s) PO daily 05/27/2016 05/21/2017 Inactive Mobic 15 mg tablet RxNorm: 256256 1 Tablet(s) PO daily 05/27/2016 05/21/2017 Inactive levothyroxine 125 mcg tablet RxNorm: 766327 1 Tablet(s) PO daily 05/25/2016 07/20/2016 Inactive cyanocobalamin (vit B-12) 1,000 mcg/mL injection solution RxNorm: 000859 1 Milliliter(s) Inj 05/25/2016 05/25/2016 Inactive doxycycline hyclate 100 mg capsule RxNorm: 4556275 1 Capsule(s) PO BID 05/16/2016 05/15/2016 Inactive doxycycline hyclate 100 mg capsule RxNorm: 9916211 1 Capsule(s) PO BID 05/16/2016 05/22/2016 Inactive cyanocobalamin (vit B-12) 1,000 mcg/mL injection solution RxNorm: 787465 Milliliter(s) Inj 05/10/2016 05/10/2016 Inactive cyanocobalamin (vit B-12) 1,000 mcg/mL injection solution RxNorm: 076721 Milliliter(s) Inj 04/26/2016 04/26/2016 Inactive Topamax 25 mg tablet RxNorm: 835272 1 Tablet(s) PO QPM 04/22/2016 08/16/2016 Inactive cyanocobalamin (vit B-12) 1,000 mcg/mL injection solution RxNorm: 707979 Milliliter(s) 1 Milliliter(s) Inj [id number] 04/11/2016 12/31/2017 Inactive liothyronine 5 mcg tablet RxNorm: 195242 1 Tablet(s) PO BID 04/11/2016 09/13/2016 Inactive cyanocobalamin (vit B-12) 1,000 mcg/mL injection solution RxNorm: 802485 Milliliter(s) Inj 04/11/2016 04/11/2016 Inactive cyanocobalamin (vit B-12) 1,000 mcg/mL injection solution RxNorm: 481201 Milliliter(s) Inj 03/31/2016 03/31/2016 Inactive cyanocobalamin (vit B-12) 1,000 mcg/mL injection solution RxNorm: 921666 1 Milliliter(s) Inj 03/15/2016 03/15/2016 Inactive levothyroxine 125 mcg tablet RxNorm: 356985 1 Tablet(s) PO daily 2016 03/03/2016 Inactive levothyroxine 125 mcg tablet RxNorm: 434533 1 Tablet(s) PO daily 2016 05/24/2016 Inactive cyanocobalamin (vit B-12) 1,000 mcg/mL injection solution RxNorm: 007856 Milliliter(s) Inj 02/25/2016 02/25/2016 Inactive cyanocobalamin (vit B-12) 1,000 mcg/mL injection solution RxNorm: 666380 1 Milliliter(s) Inj 02/02/2016 02/02/2016 Inactive sucralfate 1 gram tablet RxNorm: 858478 1 Tablet(s) PO QHS 01/25/2016 No Stop Date Active amiodarone 200 mg tablet RxNorm: 531932 1/2 Tablet(s) PO BID 01/25/2016 05/21/2017 Inactive cyanocobalamin (vit B-12) 1,000 mcg/mL injection solution RxNorm: 791214 Milliliter(s) Inj 01/18/2016 01/18/2016 Inactive cyanocobalamin (vit B-12) 1,000 mcg/mL injection solution RxNorm: 773733 Milliliter(s) Inj 12/29/2015 12/29/2015 Inactive Topamax 25 mg tablet RxNorm: 936094 1 Tablet(s) PO QPM 12/08/2015 04/05/2016 Inactive cyanocobalamin (vit B-12) 1,000 mcg/mL injection solution RxNorm: 136092 Milliliter(s) Inj 12/08/2015 12/08/2015 Inactive Bactrim DS 800 mg-160 mg tablet RxNorm: 008597 1 Tablet(s) PO BID 11/23/2015 11/22/2015 Inactive cyanocobalamin (vit B-12) 1,000 mcg/mL injection solution RxNorm: 782932 Milliliter(s) Inj 11/23/2015 11/23/2015 Inactive Bactrim DS 800 mg-160 mg tablet RxNorm: 648580 1 Tablet(s) PO BID 11/23/2015 11/29/2015 Inactive cyanocobalamin (vit B-12) 1,000 mcg/mL injection solution RxNorm: 063870 Milliliter(s) Inj 11/11/2015 11/11/2015 Inactive amoxicillin 500 mg capsule RxNorm: 685378 1 Capsule(s) PO TID 11/10/2015 11/19/2015 Inactive Zithromax Z-Henrique 250 mg tablet RxNorm: 507643 1 Tablet(s) PO UD 11/10/2015 01/24/2016 Inactive zpack x 1 amoxicillin 500 mg capsule RxNorm: 481918 1 Capsule(s) PO TID 11/10/2015 11/09/2015 Inactive cyanocobalamin (vit B-12) 1,000 mcg/mL injection solution RxNorm: 821101 1 Milliliter(s) Inj 10/29/2015 10/29/2015 Inactive [place] [employer] 3 capsule RxNorm: 1 Capsule(s) PO QAM , 2 Capsules at noon, 1 Capsule QHS 10/13/2015 No Stop Date Active potassium chloride ER 20 mEq tablet,extended release RxNorm: 413225 2 Tablet(s) PO daily at noon 10/13/2015 No Stop Date Active alprazolam 0.25 mg tablet RxNorm: 397988 1 Tablet(s) PO QHS 10/13/2015 07/20/2016 Inactive amiodarone 200 mg tablet RxNorm: 402373 1 Tablet(s) PO BID 10/13/2015 01/24/2016 Inactive cyanocobalamin (vit B-12) 1,000 mcg/mL injection solution RxNorm: 885084 1 Milliliter(s) Inj 10/12/2015 10/12/2015 Inactive Zofran 4 mg tablet RxNorm: 741347 1 Tablet(s) PO daily as needed 10/07/2015 05/24/2016 Inactive Zoloft 50 mg tablet RxNorm: 566413 TAKE 1 TABLET BY MOUTH DAILY 10/05/2015 05/01/2016 Inactive Generic For:ZOLOFT 50MG cyanocobalamin (vit B-12) 1,000 mcg/mL injection solution RxNorm: 779490 1 Milliliter(s) Inj 09/29/2015 09/29/2015 Inactive cyanocobalamin (vit B-12) 1,000 mcg/mL injection solution RxNorm: 647537 1 Milliliter(s) Inj 09/17/2015 09/17/2015 Inactive Norvasc 5 mg tablet RxNorm: 011347 1 Tablet(s) PO daily 09/17/2015 07/20/2016 Inactive liothyronine 5 mcg tablet RxNorm: 179053 1 Tablet(s) PO BID 09/17/2015 03/14/2016 Inactive Zoloft 50 mg tablet RxNorm: 564565 1 Tablet(s) PO daily 09/17/2015 10/04/2015 Inactive buspirone 15 mg tablet RxNorm: 335412 1 Tablet(s) PO BID 09/17/2015 09/10/2016 Inactive buspirone 15 mg tablet RxNorm: 926570 1 Tablet(s) PO BID 09/14/2015 09/16/2015 Inactive Topamax 25 mg tablet RxNorm: 324882 1 Tablet(s) PO QPM 09/03/2015 12/07/2015 Inactive cyanocobalamin (vit B-12) 1,000 mcg/mL injection solution RxNorm: 668093 1 Milliliter(s) Inj 09/03/2015 09/03/2015 Inactive cyanocobalamin (vit B-12) 1,000 mcg/mL injection solution RxNorm: 695258 Milliliter(s) Inj 08/17/2015 08/17/2015 Inactive cyanocobalamin (vit B-12) 1,000 mcg/mL injection solution RxNorm: 164374 Milliliter(s) Inj 08/06/2015 08/06/2015 Inactive levothyroxine 150 mcg tablet RxNorm: 604607 1 Tablet(s) PO daily 07/22/2015 03/03/2016 Inactive Aricept 10 mg tablet RxNorm: 725372 1 Tablet(s) PO daily 07/22/2015 05/26/2016 Inactive Mobic 15 mg tablet RxNorm: 699686 1 Tablet(s) PO daily 07/22/2015 05/26/2016 Inactive cyanocobalamin (vit B-12) 1,000 mcg/mL injection solution RxNorm: 158763 Milliliter(s) Inj 07/22/2015 07/22/2015 Inactive liothyronine 5 mcg tablet RxNorm: 351263 1 Tablet(s) PO BID 07/22/2015 09/16/2015 Inactive cyanocobalamin (vit B-12) 1,000 mcg/mL injection solution RxNorm: 051403 Milliliter(s) Inj 07/08/2015 07/08/2015 Inactive cyanocobalamin (vit B-12) 1,000 mcg/mL injection solution RxNorm: 474581 Milliliter(s) Inj 06/23/2015 06/23/2015 Inactive cyanocobalamin (vit B-12) 1,000 mcg/mL injection solution RxNorm: 740479 1 Milliliter(s) Inj 06/08/2015 06/08/2015 Inactive cyanocobalamin (vit B-12) 1,000 mcg/mL injection solution RxNorm: 192448 Milliliter(s) Inj 05/27/2015 05/27/2015 Inactive Aricept 10 mg tablet RxNorm: 226773 1 Tablet(s) PO daily 05/20/2015 07/21/2015 Inactive Zofran 4 mg tablet RxNorm: 934651 1 Tablet(s) PO daily as needed 05/20/2015 06/18/2015 Inactive alprazolam 0.25 mg tablet RxNorm: 911100 1 Tablet(s) PO BID 05/20/2015 10/12/2015 Inactive Mobic 15 mg tablet RxNorm: 299838 1 Tablet(s) PO daily 05/20/2015 07/21/2015 Inactive tramadol ER 100 mg tablet,extended release 24 hr RxNorm: 521866 1 Tablet(s) PO Q6 as needed 05/13/2015 No Stop Date Active cyanocobalamin (vit B-12) 1,000 mcg/mL injection solution RxNorm: 493285 1 Milliliter(s) Inj 05/12/2015 05/12/2015 Inactive Topamax 25 mg tablet RxNorm: 103507 1 Tablet(s) PO BID (start at one pill at bedtime x 1week then twice daily thereafter) 05/12/2015 09/02/2015 Inactive cyanocobalamin (vit B-12) 1,000 mcg/mL injection kit RxNorm: 360177 kit Inj 04/30/2015 04/30/2015 Inactive cyanocobalamin (vit B-12) 1,000 mcg/mL injection solution RxNorm: 637174 Milliliter(s) Inj 04/16/2015 04/16/2015 Inactive levothyroxine 150 mcg tablet RxNorm: 187148 1 Tablet(s) PO daily 04/08/2015 07/21/2015 Inactive cyanocobalamin (vit B-12) 1,000 mcg/mL injection solution RxNorm: 752936 Milliliter(s) 1 Milliliter(s) Inj [id number] 04/08/2015 04/10/2016 Inactive Cytomel 5 mcg tablet RxNorm: 371700 1 Tablet(s) PO BID 04/08/2015 10/12/2015 Inactive Cytomel 5 mcg tablet RxNorm: 203979 1 Tablet(s) PO BID 04/07/2015 04/07/2015 Inactive Cytomel 5 mcg tablet RxNorm: 532178 1 Tablet(s) PO BID 04/07/2015 04/06/2015 Inactive cyanocobalamin (vit B-12) 1,000 mcg/mL injection solution RxNorm: 654238 Milliliter(s) Inj 04/02/2015 04/02/2015 Inactive cyanocobalamin (vit B-12) 1,000 mcg/mL injection solution RxNorm: 350016 Milliliter(s) Inj 03/18/2015 03/18/2015 Inactive cyanocobalamin (vit B-12) 1,000 mcg/mL injection solution RxNorm: 617350 Milliliter(s) 1 Milliliter(s) Inj [id number] 03/18/2015 04/07/2015 Inactive cyanocobalamin (vit B-12) 1,000 mcg/mL injection solution RxNorm: 946282 1 Milliliter(s) Inj [id number] 03/16/2015 03/17/2015 Inactive cyanocobalamin (vit B-12) 1,000 mcg/mL injection solution RxNorm: 063346 Milliliter(s) Inj 03/03/2015 03/03/2015 Inactive cyanocobalamin (vit B-12) 1,000 mcg/mL injection solution RxNorm: 068055 Milliliter(s) Inj 02/18/2015 02/18/2015 Inactive cyanocobalamin (vit B-12) 1,000 mcg/mL injection solution RxNorm: 579708 Milliliter(s) Inj 02/04/2015 02/04/2015 Inactive cyanocobalamin (vit B-12) 1,000 mcg/mL injection solution RxNorm: 189070 Milliliter(s) Inj 01/22/2015 01/22/2015 Inactive Lac-Hydrin Five 5 % lotion RxNorm: 656029 1 TOP daily 01/13/2015 03/13/2015 Inactive Lac-Hydrin Five 5 % lotion RxNorm: 026388 1 TOP daily 01/13/2015 01/12/2015 Inactive cyanocobalamin (vit B-12) 1,000 mcg/mL injection solution RxNorm: 434024 Milliliter(s) Inj 01/08/2015 01/08/2015 Inactive cyanocobalamin (vit B-12) 1,000 mcg/mL injection solution RxNorm: 853016 Milliliter(s) Inj 12/25/2014 12/25/2014 Inactive levothyroxine 150 mcg tablet RxNorm: 759516 1 Tablet(s) PO daily 12/24/2014 04/07/2015 Inactive tramadol 50 mg tablet RxNorm: 033806 1-2 Tablet(s) PO Q6 as needed 12/17/2014 05/12/2015 Inactive alprazolam 0.25 mg tablet RxNorm: 587234 1 Tablet(s) PO BID 12/17/2014 04/15/2015 Inactive Pradaxa 150 mg capsule RxNorm: 3176531 1 Capsule(s) PO BID 12/16/2014 No Stop Date Active metoprolol tartrate 50 mg tablet RxNorm: 730243 1/2 Tablet(s) PO BID 12/16/2014 09/13/2016 Inactive buspirone 15 mg tablet RxNorm: 931413 1 Tablet(s) PO BID 12/16/2014 09/13/2015 Inactive cyanocobalamin (vit B-12) 1,000 mcg/mL injection solution RxNorm: 668014 1 Milliliter(s) Inj [id number] 12/16/2014 03/15/2015 Inactive cyanocobalamin (vit B-12) 1,000 mcg/mL injection solution RxNorm: 258722 1 Milliliter(s) Inj U1yhmpk 12/16/2014 12/15/2014 Inactive sucralfate 1 gram tablet RxNorm: 474739 Tablet(s) PO QID 12/16/2014 12/10/2015 Inactive cyanocobalamin (vit B-12) 1,000 mcg/mL injection solution RxNorm: 626320 Milliliter(s) Inj 12/10/2014 12/10/2014 Inactive cyanocobalamin (vit B-12) 1,000 mcg/mL injection solution RxNorm: 397942 Milliliter(s) Inj 11/26/2014 11/26/2014 Inactive Zoloft 50 mg tablet RxNorm: 249301 1 Tablet(s) PO daily 11/24/2014 06/21/2015 Inactive Zoloft 50 mg tablet RxNorm: 484540 1 Tablet(s) PO daily 11/24/2014 11/23/2014 Inactive cyanocobalamin (vit B-12) 1,000 mcg/mL injection kit RxNorm: 739504 Milliliter(s) Inj 11/12/2014 11/12/2014 Inactive cyanocobalamin (vit B-12) 1,000 mcg/mL injection solution RxNorm: 142382 Milliliter(s) Inj 10/28/2014 10/28/2014 Inactive [SAVINGS FOR NON-COVERED DRUGS -- BIN:[id number], PCN: [id number], Group: [id number], ID# [id number], Questions: . THIS IS NOT INSURANCE.] promethazine oral RxNorm: 8745 oral No Start Date Active digoxin 125 mcg tablet RxNorm: 372242 Tablet(s) PO every other day No Start Date Active furosemide 40 mg tablet RxNorm: 630260 1 Tablet(s) PO daily No Start Date Active Vitamin D3 5,000 unit tablet RxNorm: 610158 1 Tablet(s) PO daily No Start Date Active erythromycin 250 mg capsule,delayed release RxNorm: 733429 1 Capsule(s) PO AC No Start Date Active Protonix 40 mg tablet,delayed release RxNorm: 001813 1 Tablet(s) PO BID No Start Date Active Cozaar 100 mg tablet RxNorm: 392071 1 Tablet(s) PO daily No Start Date 09/13/2016 Inactive sucralfate 1 gram tablet RxNorm: 592877 Tablet(s) PO QID No Start Date 12/15/2014 Inactive amiodarone 200 mg tablet RxNorm: 329321 2 Tablet(s) PO daily No Start Date 10/13/2015 Inactive buspirone 15 mg tablet RxNorm: 713321 1 Tablet(s) PO daily No Start Date 12/15/2014 Inactive potassium chloride ER 20 mEq tablet,extended release RxNorm: 696644 1 Tablet(s) PO daily No Start Date 10/12/2015 Inactive Prilosec 40 mg capsule,delayed release RxNorm: 149433 1 Capsule(s) PO daily No Start Date 09/02/2015 Inactive [place] 3 capsule RxNorm: Capsule(s) PO No Start Date 10/12/2015 Inactive alprazolam 0.25 mg tablet RxNorm: 757415 Tablet(s) PO QHS No Start Date 12/16/2014 Inactive levothyroxine 125 mcg tablet RxNorm: 997633 1 Tablet(s) PO daily No Start Date 12/23/2014 Inactive liothyronine 5 mcg tablet RxNorm: 376490 1 Tablet(s) PO BID No Start Date 07/21/2015 Inactive Mobic 15 mg tablet RxNorm: 157356 Tablet(s) PO daily No Start Date 05/19/2015 Inactive Norvasc 5 mg tablet RxNorm: 659079 1 Tablet(s) PO daily No Start Date 09/16/2015 Inactive Zofran 4 mg tablet RxNorm: 720956 1 Tablet(s) PO daily as needed No Start Date 05/19/2015 Inactive Tamiflu 75 mg capsule RxNorm: 868336 1 Capsule(s) PO BID No Start Date 07/23/2017 Inactive tramadol 50 mg tablet RxNorm: 236992 1 Tablet(s) PO daily as needed No Start Date 12/16/2014 Inactive amiodarone 200 mg tablet RxNorm: 821583 1 Tablet(s) PO daily No Start Date 10/12/2015 Inactive Zofran ODT 4 mg disintegrating tablet RxNorm: 198798 1 Tablet(s) PO TID as needed No Start Date 05/02/2017 Inactive albuterol sulfate 2.5 mg/3 mL (0.083 %) solution for nebulization RxNorm: 058464 3 Milliliter(s) INH Q6 PRN No Start Date 09/20/2017 Inactive meclizine 25 mg tablet RxNorm: 097979 Tablet(s) PO as needed No Start Date 05/24/2016 Inactive Pradaxa 150 mg capsule RxNorm: 2379553 1 Capsule(s) PO daily No Start Date 12/15/2014 Inactive metoprolol tartrate 50 mg tablet RxNorm: 196110 1/2 Tablet(s) PO No Start Date 12/15/2014 Inactive Aricept 10 mg tablet RxNorm: 122638 Tablet(s) PO daily No Start Date 05/19/2015 Inactive Calmoseptine 0.44 %-20.6 % topical ointment RxNorm: 210489 1 Application TOP BID and as needed to sore on buttocks No Start Date 09/06/2016 Inactive Zithromax Z-Henrique 250 mg tablet RxNorm: 934301 1 Tablet(s) PO UD No Start Date 11/09/2015 Inactive zpack x 1 Medication Administered Medication Codes Instructions Start Date Status cyanocobalamin (vit B-12) 1,000 mcg/mL injection solution RxNorm: 954374 Milliliter 06/20/2018 No longer Active cyanocobalamin (vit B-12) 1,000 mcg/mL injection solution RxNorm: 278014 Milliliter 06/06/2018 No longer Active cyanocobalamin (vit B-12) 1,000 mcg/mL injection solution RxNorm: 984874 Milliliter 05/24/2018 No longer Active cyanocobalamin (vit B-12) 1,000 mcg/mL injection solution RxNorm: 186099 Milliliter 05/09/2018 No longer Active cyanocobalamin (vit B-12) 1,000 mcg/mL injection solution RxNorm: 961286 Milliliter 04/26/2018 No longer Active cyanocobalamin (vit B-12) 1,000 mcg/mL injection solution RxNorm: 139673 Milliliter 04/12/2018 No longer Active cyanocobalamin (vit B-12) 1,000 mcg/mL injection solution RxNorm: 064865 Milliliter 03/30/2018 No longer Active cyanocobalamin (vit B-12) 1,000 mcg/mL injection solution RxNorm: 375962 Milliliter 03/16/2018 No longer Active cyanocobalamin (vit B-12) 1,000 mcg/mL injection solution RxNorm: 997402 Milliliter 03/02/2018 No longer Active cyanocobalamin (vit B-12) 1,000 mcg/mL injection solution RxNorm: 018674 Milliliter 02/08/2018 No longer Active cyanocobalamin (vit B-12) 1,000 mcg/mL injection solution RxNorm: 274818 Milliliter 01/24/2018 No longer Active cyanocobalamin (vit B-12) 1,000 mcg/mL injection solution RxNorm: 421256 Milliliter 01/10/2018 No longer Active cyanocobalamin (vit B-12) 1,000 mcg/mL injection solution RxNorm: 155235 Milliliter 12/27/2017 No longer Active cyanocobalamin (vit B-12) 1,000 mcg/mL injection solution RxNorm: 473246 1Milliliter 12/12/2017 No longer Active cyanocobalamin (vit B-12) 1,000 mcg/mL injection solution RxNorm: 200538 Milliliter 12/01/2017 No longer Active cyanocobalamin (vit B-12) 1,000 mcg/mL injection solution RxNorm: 751668 1Milliliter 11/17/2017 No longer Active cyanocobalamin (vit B-12) 1,000 mcg/mL injection solution RxNorm: 508500 1Milliliter 11/02/2017 No longer Active cyanocobalamin (vit B-12) 1,000 mcg/mL injection solution RxNorm: 348983 1Milliliter 10/20/2017 No longer Active cyanocobalamin (vit B-12) 1,000 mcg/mL injection solution RxNorm: 835075 Milliliter 10/06/2017 No longer Active cyanocobalamin (vit B-12) 1,000 mcg/mL injection solution RxNorm: 195057 Milliliter 09/21/2017 No longer Active Kenalog 40 mg/mL suspension for injection RxNorm: 7916407 Milliliter 09/15/2017 No longer Active cyanocobalamin (vit B-12) 1,000 mcg/mL injection solution RxNorm: 745563 Milliliter 09/07/2017 No longer Active cyanocobalamin (vit B-12) 1,000 mcg/mL injection solution RxNorm: 761002 Milliliter 08/24/2017 No longer Active cyanocobalamin (vit B-12) 1,000 mcg/mL injection solution RxNorm: 167610 Milliliter 07/06/2017 No longer Active cyanocobalamin (vit B-12) 1,000 mcg/mL injection solution RxNorm: 521142 Milliliter 06/20/2017 No longer Active Kenalog 40 mg/mL suspension for injection RxNorm: 8020359 1Milliliter 06/20/2017 No longer Active cyanocobalamin (vit B-12) 1,000 mcg/mL injection solution RxNorm: 967789 Milliliter 06/05/2017 No longer Active cyanocobalamin (vit B-12) 1,000 mcg/mL injection solution RxNorm: 648195 Milliliter 05/25/2017 No longer Active cyanocobalamin (vit B-12) 1,000 mcg/mL injection solution RxNorm: 942396 Milliliter 05/16/2017 No longer Active cyanocobalamin (vit B-12) 1,000 mcg/mL injection solution RxNorm: 227065 1Milliliter 05/01/2017 No longer Active cyanocobalamin (vit B-12) 1,000 mcg/mL injection solution RxNorm: 218591 Milliliter 04/18/2017 No longer Active cyanocobalamin (vit B-12) 1,000 mcg/mL injection solution RxNorm: 330276 Milliliter 04/06/2017 No longer Active cyanocobalamin (vit B-12) 1,000 mcg/mL injection solution RxNorm: 810215 Milliliter 03/22/2017 No longer Active cyanocobalamin (vit B-12) 1,000 mcg/mL injection solution RxNorm: 678324 Milliliter 03/09/2017 No longer Active cyanocobalamin (vit B-12) 1,000 mcg/mL injection solution RxNorm: 052359 Milliliter 02/23/2017 No longer Active cyanocobalamin (vit B-12) 1,000 mcg/mL injection solution RxNorm: 024271 Milliliter 02/09/2017 No longer Active cyanocobalamin (vit B-12) 1,000 mcg/mL injection solution RxNorm: 904905 Milliliter 01/23/2017 No longer Active cyanocobalamin (vit B-12) 1,000 mcg/mL injection solution RxNorm: 991690 Milliliter 01/10/2017 No longer Active cyanocobalamin (vit B-12) 1,000 mcg/mL injection solution RxNorm: 790503 1Milliliter 12/28/2016 No longer Active cyanocobalamin (vit B-12) 1,000 mcg/mL injection solution RxNorm: 266776 Milliliter 12/14/2016 No longer Active cyanocobalamin (vit B-12) 1,000 mcg/mL injection solution RxNorm: 549695 Milliliter 11/24/2016 No longer Active cyanocobalamin (vit B-12) 1,000 mcg/mL injection solution RxNorm: 392275 1Milliliter 11/07/2016 No longer Active cyanocobalamin (vit B-12) 1,000 mcg/mL injection solution RxNorm: 127997 Milliliter 10/24/2016 No longer Active cyanocobalamin (vit B-12) 1,000 mcg/mL injection solution RxNorm: 333516 1Milliliter 09/29/2016 No longer Active cyanocobalamin (vit B-12) 1,000 mcg/mL injection solution RxNorm: 146770 Milliliter 08/29/2016 No longer Active cyanocobalamin (vit B-12) 1,000 mcg/mL injection solution RxNorm: 372075 Milliliter 08/04/2016 No longer Active cyanocobalamin (vit B-12) 1,000 mcg/mL injection solution RxNorm: 866827 Milliliter 07/21/2016 No longer Active cyanocobalamin (vit B-12) 1,000 mcg/mL injection solution RxNorm: 902756 1Milliliter 07/05/2016 No longer Active cyanocobalamin (vit B-12) 1,000 mcg/mL injection solution RxNorm: 124916 1Milliliter 06/22/2016 No longer Active cyanocobalamin (vit B-12) 1,000 mcg/mL injection solution RxNorm: 538459 Milliliter 06/09/2016 No longer Active cyanocobalamin (vit B-12) 1,000 mcg/mL injection solution RxNorm: 459469 1Milliliter 05/25/2016 No longer Active cyanocobalamin (vit B-12) 1,000 mcg/mL injection solution RxNorm: 770769 Milliliter 05/10/2016 No longer Active cyanocobalamin (vit B-12) 1,000 mcg/mL injection solution RxNorm: 312117 Milliliter 04/26/2016 No longer Active cyanocobalamin (vit B-12) 1,000 mcg/mL injection solution RxNorm: 452446 Milliliter 04/11/2016 No longer Active cyanocobalamin (vit B-12) 1,000 mcg/mL injection solution RxNorm: 169601 Milliliter 03/31/2016 No longer Active cyanocobalamin (vit B-12) 1,000 mcg/mL injection solution RxNorm: 682091 1Milliliter 03/15/2016 No longer Active cyanocobalamin (vit B-12) 1,000 mcg/mL injection solution RxNorm: 382821 Milliliter 02/25/2016 No longer Active cyanocobalamin (vit B-12) 1,000 mcg/mL injection solution RxNorm: 795101 1Milliliter 02/02/2016 No longer Active cyanocobalamin (vit B-12) 1,000 mcg/mL injection solution RxNorm: 997456 Milliliter 01/18/2016 No longer Active cyanocobalamin (vit B-12) 1,000 mcg/mL injection solution RxNorm: 352044 Milliliter 12/29/2015 No longer Active cyanocobalamin (vit B-12) 1,000 mcg/mL injection solution RxNorm: 165206 Milliliter 12/08/2015 No longer Active cyanocobalamin (vit B-12) 1,000 mcg/mL injection solution RxNorm: 812730 Milliliter 11/23/2015 No longer Active cyanocobalamin (vit B-12) 1,000 mcg/mL injection solution RxNorm: 475164 Milliliter 11/11/2015 No longer Active cyanocobalamin (vit B-12) 1,000 mcg/mL injection solution RxNorm: 229047 1Milliliter 10/29/2015 No longer Active cyanocobalamin (vit B-12) 1,000 mcg/mL injection solution RxNorm: 348320 1Milliliter 10/12/2015 No longer Active cyanocobalamin (vit B-12) 1,000 mcg/mL injection solution RxNorm: 424949 1Milliliter 09/29/2015 No longer Active cyanocobalamin (vit B-12) 1,000 mcg/mL injection solution RxNorm: 773695 1Milliliter 09/17/2015 No longer Active cyanocobalamin (vit B-12) 1,000 mcg/mL injection solution RxNorm: 092623 1Milliliter 09/03/2015 No longer Active cyanocobalamin (vit B-12) 1,000 mcg/mL injection solution RxNorm: 930494 Milliliter 08/17/2015 No longer Active cyanocobalamin (vit B-12) 1,000 mcg/mL injection solution RxNorm: 891926 Milliliter 08/06/2015 No longer Active cyanocobalamin (vit B-12) 1,000 mcg/mL injection solution RxNorm: 325020 Milliliter 07/22/2015 No longer Active cyanocobalamin (vit B-12) 1,000 mcg/mL injection solution RxNorm: 771979 Milliliter 07/08/2015 No longer Active cyanocobalamin (vit B-12) 1,000 mcg/mL injection solution RxNorm: 124812 Milliliter 06/23/2015 No longer Active cyanocobalamin (vit B-12) 1,000 mcg/mL injection solution RxNorm: 279189 1Milliliter 06/08/2015 No longer Active cyanocobalamin (vit B-12) 1,000 mcg/mL injection solution RxNorm: 009908 Milliliter 05/27/2015 No longer Active cyanocobalamin (vit B-12) 1,000 mcg/mL injection solution RxNorm: 897435 1Milliliter 05/12/2015 No longer Active cyanocobalamin (vit B-12) 1,000 mcg/mL injection kit RxNorm: 800866 kit 04/30/2015 No longer Active cyanocobalamin (vit B-12) 1,000 mcg/mL injection solution RxNorm: 633301 Milliliter 04/16/2015 No longer Active cyanocobalamin (vit B-12) 1,000 mcg/mL injection solution RxNorm: 725017 Milliliter 04/02/2015 No longer Active cyanocobalamin (vit B-12) 1,000 mcg/mL injection solution RxNorm: 236177 Milliliter 03/18/2015 No longer Active cyanocobalamin (vit B-12) 1,000 mcg/mL injection solution RxNorm: 657100 Milliliter 03/03/2015 No longer Active cyanocobalamin (vit B-12) 1,000 mcg/mL injection solution RxNorm: 636672 Milliliter 02/18/2015 No longer Active cyanocobalamin (vit B-12) 1,000 mcg/mL injection solution RxNorm: 314463 Milliliter 02/04/2015 No longer Active cyanocobalamin (vit B-12) 1,000 mcg/mL injection solution RxNorm: 303606 Milliliter 01/22/2015 No longer Active cyanocobalamin (vit B-12) 1,000 mcg/mL injection solution RxNorm: 714705 Milliliter 01/08/2015 No longer Active cyanocobalamin (vit B-12) 1,000 mcg/mL injection solution RxNorm: 524926 Milliliter 12/25/2014 No longer Active cyanocobalamin (vit B-12) 1,000 mcg/mL injection solution RxNorm: 428092 Milliliter 12/10/2014 No longer Active cyanocobalamin (vit B-12) 1,000 mcg/mL injection solution RxNorm: 286364 Milliliter 11/26/2014 No longer Active cyanocobalamin (vit B-12) 1,000 mcg/mL injection kit RxNorm: 730318 Milliliter 11/12/2014 No longer Active cyanocobalamin (vit B-12) 1,000 mcg/mL injection solution RxNorm: 033550 Milliliter 10/28/2014 No longer Active Immunizations Vaccine [...] (3rd IS) 3.20 uIU/mL 02/26/2018 Free T4 Jdu269 FREE T4 0.99 ng/dL 02/26/2018 Cbc With [...] 28.5 pg 02/26/2018 Cbc With Differential Ord2 [place]% 10.3 % 02/26/2018 Cbc With Differential Ord2 [...] 1.80 K/ul 02/26/2018 Cbc With Differential Ord2 [place] ABS# 0.7 K/ul 02/26/2018 Cbc With Differential Ord2 Eos ABS# 0.2 K/ul 02/26/2018 Cbc With Differential Ord2 Baso ABS# 0.0 K/ul 02/26/2018 B12 Cat004 B12 889.00 pg/ml 02/26/2018 Digoxin Ord9 DIGOXIN 0.7 NG/ML 11/23/2017 Comp Metabolic Yrm452 NA 142 mEq/L 11/23/2017 Comp Metabolic Zpc679 K 4.9 mEq/L 11/23/2017 Comp Metabolic Plz246 CL 112 mEq/L 11/23/2017 Comp Metabolic Peb082 CO2 18.0 mEq/L 11/23/2017 Comp Metabolic Bpg249 ANION GAP 17 11/23/2017 Comp Metabolic Kbo115 GLUCOSE 123 mg/dL 11/23/2017 Comp Metabolic Kzq941 Creat 1.0 mg/dL 11/23/2017 Comp Metabolic Nwt511 eGFR 59 ml/min/1.73m2 11/23/2017 Comp Metabolic Rds695 BUN 24 mg/dL 11/23/2017 Comp Metabolic Kkg586 B/C Ratio 25.0 Ratio 11/23/2017 Comp Metabolic Igj580 CALCIUM 9.4 mg/dL 11/23/2017 Comp Metabolic Kae903 ALK PHOS 56 U/L 11/23/2017 Comp Metabolic Cwa896 AST(SGOT) 17 U/L 11/23/2017 Comp Metabolic Fjw938 ALT(SGPT) 16 U/L 11/23/2017 Comp Metabolic Wbw992 BILI T 0.7 mg/dL 11/23/2017 Comp Metabolic Drq563 ALBUMIN 3.8 g/dL 11/23/2017 Comp Metabolic Sfy336 TPRO 6.2 g/dL 11/23/2017 Comp Metabolic Vxd886 GLOB 2.4 g/dL 11/23/2017 Comp Metabolic Mhs350 A/G Ratio 1.6 Ratio 11/23/2017 Comp Metabolic Lkb486 Osmo 289 mOsmo 11/23/2017 Free T4 Uql949 FREE T4 1.04 ng/dL 11/23/2017 %Hba1C Ddr528 % HbA1c 72072- 6 6.4 % 11/23/2017 %Hba1C Zok682 Gluc Ave 137 mg/dL 11/23/2017 Lipid Ord30 CHOL 179 mg/dL 11/23/2017 Lipid Ord30 HDL 51.0 mg/dl 11/23/2017 Lipid Ord30 TRIG 134 mg/dL 11/23/2017 Lipid Ord30 LDL 101 mg/dL 11/23/2017 Lipid Ord30 C/HDL 3.5 Ratio 11/23/2017 Tsh Ord6 TSH (3rd IS) 1.00 uIU/mL 11/23/2017 Microalbumin Kct450 MicroAlb <0.7 mg/dL 11/23/2017 Comp Metabolic Juz069 NA 141 mEq/L 01/23/2017 Comp Metabolic Xzm516 K 4.5 mEq/L 01/23/2017 Comp Metabolic Xnv668 CL 107 mEq/L 01/23/2017 Comp Metabolic Rbz656 CO2 21.0 mEq/L 01/23/2017 Comp Metabolic Hka780 ANION GAP 18 01/23/2017 Comp Metabolic Zod581 GLUCOSE 138 mg/dL 01/23/2017 Comp Metabolic Byc387 Creat 1.0 mg/dL 01/23/2017 Comp Metabolic Xri303 eGFR 56 ml/min/1.73m2 01/23/2017 Comp Metabolic Eki569 BUN 26 mg/dL 01/23/2017 Comp Metabolic Dxt834 B/C Ratio 25.7 Ratio 01/23/2017 Comp Metabolic Kyf450 CALCIUM 9.0 mg/dL 01/23/2017 Comp Metabolic Vki868 ALK PHOS 37 U/L 01/23/2017 Comp Metabolic Yav838 AST(SGOT) 20 U/L 01/23/2017 Comp Metabolic Txn457 ALT(SGPT) 25 U/L 01/23/2017 Comp Metabolic Jei558 BILI T 0.9 mg/dL 01/23/2017 Comp Metabolic Ixs539 ALBUMIN 3.8 g/dL 01/23/2017 Comp Metabolic Qts567 TPRO 6.5 g/dL 01/23/2017 Comp Metabolic Ksw653 GLOB 2.7 g/dL 01/23/2017 Comp Metabolic Upa271 A/G Ratio 1.4 Ratio 01/23/2017 Comp Metabolic Sgf005 Osmo 288 mOsmo 01/23/2017 Free T4 Lau949 FREE T4 1.05 ng/dL 01/23/2017 %Hba1C Ccn020 % HbA1c 38956- 6 6.1 % 01/23/2017 %Hba1C Obm790 Gluc Ave 128 mg/dL 01/23/2017 Tsh Ord6 hTSH II 1.68 uIU/mL 01/23/2017 Culture Urine [id number] URINE CULTURE SEE NOTES 11/10/2016 Culture Urine [id number] Continued Results 11/10/2016 Urine Culture Ucult Complete [...] Ord15 CALCIUM 9.3 mg/dL 09/29/2016 Free T4 Ctw850 FREE T4 0.99 ng/dL 09/07/2016 Cbc With [...] 30.0 pg 09/07/2016 Cbc With Differential Ord2 [place]% 9.8 % 09/07/2016 Cbc With Differential Ord2 [...] 1.75 K/ul 09/07/2016 Cbc With Differential Ord2 [place] ABS# 0.6 K/ul 09/07/2016 Cbc With Differential Ord2 Eos ABS# 0.1 K/ul 09/07/2016 Cbc With Differential Ord2 Baso ABS# 0.0 K/ul 09/07/2016 Tsh Ord6 hTSH II 1.41 uIU/mL 09/07/2016 Culture Urine [id number] URINE CULTURE SEE NOTES 06/27/2016 Lipid Ord30 CHOL 196 mg/dL 06/22/2016 Lipid Ord30 HDL 63.0 mg/dl 06/22/2016 Lipid Ord30 TRIG 154 mg/dL 06/22/2016 Lipid Ord30 LDL 102 mg/dL 06/22/2016 Lipid Ord30 C/HDL 3.1 Ratio 06/22/2016 Hepatic Pgr142 ALBUMIN 4.2 g/dL 06/22/2016 Hepatic Ysw751 TPRO 7.0 g/dL 06/22/2016 Hepatic Yay550 GLOB 2.8 g/dL 06/22/2016 Hepatic Bkf539 A/G Ratio 1.5 Ratio 06/22/2016 Hepatic Ccz036 ALK PHOS 54 U/L 06/22/2016 Hepatic Dlf808 ALT(SGPT) 30 U/L 06/22/2016 Hepatic Skc465 AST(SGOT) 24 U/L 06/22/2016 Hepatic Svj573 BILI T 1.1 mg/dL 06/22/2016 Hepatic Nxz340 BILI D 0.2 mg/dL 06/22/2016 Hepatic Quh185 BILI I 0.9 mg/dL 06/22/2016 Comp Metabolic Mij297 NA 139 mEq/L 06/14/2016 Comp Metabolic Hsm817 K 4.6 mEq/L 06/14/2016 Comp Metabolic Vjm521 CL 108 mEq/L 06/14/2016 Comp Metabolic Uhu033 CO2 22.0 mEq/L 06/14/2016 Comp Metabolic Wsz701 ANION GAP 14 06/14/2016 Comp Metabolic Ust981 GLUCOSE 114 mg/dL 06/14/2016 Comp Metabolic Ebn722 Creat 1.2 mg/dL 06/14/2016 Comp Metabolic Odo387 eGFR 48 ml/min/1.73m2 06/14/2016 Comp Metabolic Iud012 BUN 24 mg/dL 06/14/2016 Comp Metabolic Xob697 B/C Ratio 20.9 Ratio 06/14/2016 Comp Metabolic Qnr215 CALCIUM 9.9 mg/dL 06/14/2016 Comp Metabolic Sib425 ALK PHOS 47 U/L 06/14/2016 Comp Metabolic Uwc709 AST(SGOT) 28 U/L 06/14/2016 Comp Metabolic Cln106 ALT(SGPT) 32 U/L 06/14/2016 Comp Metabolic Zxx665 BILI T 0.9 mg/dL 06/14/2016 Comp Metabolic Zzd968 ALBUMIN 4.1 g/dL 06/14/2016 Comp Metabolic Qjw798 TPRO 6.9 g/dL 06/14/2016 Comp Metabolic Ptq178 GLOB 2.8 g/dL 06/14/2016 Comp Metabolic Ebp492 A/G Ratio 1.5 Ratio 06/14/2016 Comp Metabolic Twn415 Osmo 282 mOsmo 06/14/2016 Tsh Ord6 hTSH II 1.26 uIU/mL 06/14/2016 Free T4 Vnh709 FREE T4 1.09 ng/dL 06/14/2016 Tsh Ord6 hTSH II 0.28 uIU/mL 02/02/2016 Digoxin Ord9 DIGOXIN 0.7 NG/ML 02/02/2016 Free T4 Ztz144 FREE T4 1.23 ng/dL 02/02/2016 Hepatic Dtg726 ALBUMIN 4.0 g/dL 02/02/2016 Hepatic Mtc819 TPRO 7.0 g/dL 02/02/2016 Hepatic Vnr824 GLOB 3.0 g/dL 02/02/2016 Hepatic Gdb190 A/G Ratio 1.3 Ratio 02/02/2016 Hepatic Mug320 ALK PHOS 57 U/L 02/02/2016 Hepatic Oyh810 ALT(SGPT) 62 U/L 02/02/2016 Hepatic Hzn689 AST(SGOT) 54 U/L 02/02/2016 Hepatic Fey110 BILI T 0.8 mg/dL 02/02/2016 Hepatic Lfr315 BILI D 0.2 mg/dL 02/02/2016 Hepatic Mdn939 BILI I 0.6 mg/dL 02/02/2016 Urine Culture Ucult Preliminary No Growth Day 1 11/25/2015 Urine Culture Ucult Complete No Growth Day 2 11/25/2015 Hepatic Kel594 ALBUMIN 3.9 g/dL 11/11/2015 Hepatic Dkh867 TPRO 7.0 g/dL 11/11/2015 Hepatic Jox261 GLOB 3.1 g/dL 11/11/2015 Hepatic Nhb158 A/G Ratio 1.3 Ratio 11/11/2015 Hepatic Gun085 ALK PHOS 63 U/L 11/11/2015 Hepatic Gca121 ALT(SGPT) 107 U/L 11/11/2015 Hepatic Mbg761 AST(SGOT) 101 U/L 11/11/2015 Hepatic Htl625 BILI T 0.6 mg/dL 11/11/2015 Hepatic Hnh501 BILI D 0.1 mg/dL 11/11/2015 Hepatic Mkd140 BILI I 0.5 mg/dL 11/11/2015 Comp Metabolic Zax399 NA 138 mEq/L 10/29/2015 Comp Metabolic Hxy760 K 5.0 mEq/L 10/29/2015 Comp Metabolic Iyh704 CL 105 mEq/L 10/29/2015 Comp Metabolic Ugt637 CO2 23.0 mEq/L 10/29/2015 Comp Metabolic Hfb923 ANION GAP 15 10/29/2015 Comp Metabolic Rpf497 GLUCOSE 105 mg/dL 10/29/2015 Comp Metabolic Uac045 Creat 1.0 mg/dL 10/29/2015 Comp Metabolic Fkb243 eGFR 55 ml/min/1.73m2 10/29/2015 Comp Metabolic Ofr543 BUN 20 mg/dL 10/29/2015 Comp Metabolic Bhv018 B/C Ratio 19.4 Ratio 10/29/2015 Comp Metabolic Nka894 CALCIUM 8.8 mg/dL 10/29/2015 Comp Metabolic Xkb117 ALK PHOS 56 U/L 10/29/2015 Comp Metabolic Ias145 AST(SGOT) 66 U/L 10/29/2015 Comp Metabolic Tjq973 ALT(SGPT) 78 U/L 10/29/2015 Comp Metabolic Aps919 BILI T 0.7 mg/dL 10/29/2015 Comp Metabolic Xbe490 ALBUMIN 3.6 g/dL 10/29/2015 Comp Metabolic Dik420 TPRO 6.6 g/dL 10/29/2015 Comp Metabolic Rnj432 GLOB 3.0 g/dL 10/29/2015 Comp Metabolic Lxm585 A/G Ratio 1.2 Ratio 10/29/2015 Comp Metabolic Svp838 Osmo 279 mOsmo 10/29/2015 Comp Metabolic Dyh407 NA 136 mEq/L 09/03/2015 Comp Metabolic Vli142 K 4.4 mEq/L 09/03/2015 Comp Metabolic Wmm056 CL 103 mEq/L 09/03/2015 Comp Metabolic Nex641 CO2 24.0 mEq/L 09/03/2015 Comp Metabolic Bkc237 ANION GAP 13 09/03/2015 Comp Metabolic Inx155 GLUCOSE 87 mg/dL 09/03/2015 Comp Metabolic Nvb618 Creat 1.1 mg/dL 09/03/2015 Comp Metabolic Mjj876 eGFR 53 ml/min/1.73m2 09/03/2015 Comp Metabolic Twe314 BUN 17 mg/dL 09/03/2015 Comp Metabolic Yxi147 B/C Ratio 16.2 Ratio 09/03/2015 Comp Metabolic Cec264 CALCIUM 9.0 mg/dL 09/03/2015 Comp Metabolic Kmv842 ALK PHOS 55 U/L 09/03/2015 Comp Metabolic Coh787 AST(SGOT) 83 U/L 09/03/2015 Comp Metabolic Pxx058 ALT(SGPT) 126 U/L 09/03/2015 Comp Metabolic Xtg771 BILI T 0.9 mg/dL 09/03/2015 Comp Metabolic Vyj644 ALBUMIN 3.9 g/dL 09/03/2015 Comp Metabolic Jtr635 TPRO 6.8 g/dL 09/03/2015 Comp Metabolic Quh988 GLOB 2.9 g/dL 09/03/2015 Comp Metabolic Dob213 A/G Ratio 1.4 Ratio 09/03/2015 Comp Metabolic Mxb423 Osmo 273 mOsmo 09/03/2015 Total T3 Ord42 TT3 0.6 ng/ml 07/09/2015 Tsh Ord6 hTSH II 1.62 uIU/mL 07/09/2015 Total T3 Ord42 TT3 0.5 ng/ml 04/02/2015 Free T4 Stk233 FREE T4 1.23 ng/dL 04/02/2015 Tsh Ord6 [...] Procedure Codes Date THER/PROPH/DIAG INJ SC/IM CPT-4: 32850 06/20/2018 THER/PROPH/DIAG INJ SC/IM CPT-4: 74324 06/06/2018 VITAMIN B12 INJECTION CPT- 4: J3420 06/06/2018 THER/PROPH/DIAG INJ SC/IM CPT-4: 57343 05/24/2018 THER/PROPH/DIAG INJ SC/IM CPT-4: 55850 05/09/2018 THER/PROPH/DIAG INJ SC/IM CPT-4: 03315 04/26/2018 VITAMIN B12 INJECTION CPT- 4: J3420 04/26/2018 THER/PROPH/DIAG INJ SC/IM CPT-4: 67761 04/12/2018 THER/PROPH/DIAG INJ SC/IM CPT-4: 50291 03/30/2018 THER/PROPH/DIAG INJ SC/IM CPT-4: 61907 03/16/2018 VITAMIN B12 INJECTION CPT- 4: J3420 03/16/2018 ADMIN INFLUENZA VIRUS VAC CPT-4: G0008 03/16/2018 FLU VACC PRSV FREE INC ANTIG Formatting Model/CDA Sections, Assigned to/Nga Ojeda CPT-4: 06766Hleqmsy 03/16/2018 THER/PROPH/DIAG INJ SC/IM CPT-4: 49043 03/02/2018 THER/PROPH/DIAG INJ SC/IM CPT-4: 26002 02/08/2018 THER/PROPH/DIAG INJ SC/IM CPT-4: 32013 01/24/2018 THER/PROPH/DIAG INJ SC/IM CPT-4: 34787 01/10/2018 THER/PROPH/DIAG INJ SC/IM CPT-4: 25563 12/27/2017 VITAMIN B12 INJECTION CPT- 4: J3420 12/27/2017 THER/PROPH/DIAG INJ SC/IM CPT-4: 06329 12/12/2017 THER/PROPH/DIAG INJ SC/IM CPT-4: 60475 12/01/2017 VITAMIN B12 INJECTION CPT- 4: J3420 12/01/2017 THER/PROPH/DIAG INJ SC/IM CPT-4: 94590 11/17/2017 THER/PROPH/DIAG INJ SC/IM CPT-4: 74658 11/02/2017 THER/PROPH/DIAG INJ SC/IM CPT-4: 57289 10/20/2017 THER/PROPH/DIAG INJ SC/IM CPT-4: 75408 10/06/2017 THER/PROPH/DIAG INJ SC/IM CPT-4: 86441 09/21/2017 TRIAMCINOLONE ACET INJ NOS CPT-4: J3301 09/15/2017 THER/PROPH/DIAG INJ SC/IM CPT-4: 27459 09/07/2017 THER/PROPH/DIAG INJ SC/IM CPT-4: 46390 08/24/2017 THER/PROPH/DIAG INJ SC/IM CPT-4: 79081 07/06/2017 THER/PROPH/DIAG INJ SC/IM CPT-4: 39091 06/20/2017 TRIAMCINOLONE ACET INJ NOS CPT-4: J3301 06/20/2017 PPPS, SUBSEQ VISIT CPT- 4: G0439 06/05/2017 THER/PROPH/DIAG INJ SC/IM CPT-4: 08881 06/05/2017 THER/PROPH/DIAG INJ SC/IM CPT-4: 16337 05/25/2017 VITAMIN B12 INJECTION CPT- 4: J3420 05/25/2017 THER/PROPH/DIAG INJ SC/IM CPT-4: 95789 05/16/2017 THER/PROPH/DIAG INJ SC/IM CPT-4: 31498 05/01/2017 THER/PROPH/DIAG INJ SC/IM CPT-4: 92255 04/18/2017 THER/PROPH/DIAG INJ SC/IM CPT-4: 64252 04/06/2017 ADMIN INFLUENZA VIRUS VAC CPT-4: G0008 03/22/2017 FLU VACC PRSV FREE INC ANTIG CPT-4: 44250 03/22/2017 THER/PROPH/DIAG INJ SC/IM CPT-4: 31412 03/09/2017 THER/PROPH/DIAG INJ SC/IM CPT-4: 66670 02/23/2017 THER/PROPH/DIAG INJ SC/IM CPT-4: 36509 02/09/2017 THER/PROPH/DIAG INJ SC/IM CPT-4: 23556 01/23/2017 THER/PROPH/DIAG INJ SC/IM CPT-4: 14831 01/10/2017 THER/PROPH/DIAG INJ SC/IM CPT-4: 15638 12/28/2016 THER/PROPH/DIAG INJ SC/IM CPT-4: 32819 12/14/2016 THER/PROPH/DIAG INJ SC/IM CPT-4: 81443 11/24/2016 URINALYSIS NONAUTO W/O SCOPE CPT-4: 26705 11/07/2016 THER/PROPH/DIAG INJ SC/IM CPT-4: 48412 11/07/2016 THER/PROPH/DIAG INJ SC/IM CPT-4: 85292 10/24/2016 THER/PROPH/DIAG INJ SC/IM CPT-4: 05254 09/29/2016 THER/PROPH/DIAG INJ SC/IM CPT-4: 55209 08/29/2016 THER/PROPH/DIAG INJ SC/IM CPT-4: 98349 08/04/2016 THER/PROPH/DIAG INJ SC/IM CPT-4: 45873 07/21/2016 THER/PROPH/DIAG INJ SC/IM CPT-4: 97613 07/05/2016 THER/PROPH/DIAG INJ SC/IM CPT-4: 46034 06/22/2016 URINALYSIS NONAUTO W/O SCOPE CPT-4: 64102 06/22/2016 THER/PROPH/DIAG INJ SC/IM CPT-4: 97679 06/09/2016 PPPS, SUBSEQ VISIT CPT- 4: G0439 05/30/2016 ADMIN PNEUMOCOCCAL VACCINE SNOMED CT: 49104640 CPT-4: G0009 05/25/2016 Pneumococcal Polysaccharide Vaccine, 23-Valent, Ad CPT-4: 03469 05/25/2016 THER/PROPH/DIAG INJ SC/IM CPT-4: 01201 05/25/2016 THER/PROPH/DIAG INJ SC/IM CPT-4: 93462 05/10/2016 TRIAMCINOLONE ACET INJ NOS CPT-4: J3301 04/26/2016 VITAMIN B12 INJECTION CPT- 4: J3420 04/26/2016 THER/PROPH/DIAG INJ SC/IM CPT-4: 34660 04/11/2016 THER/PROPH/DIAG INJ SC/IM CPT-4: 76746 03/31/2016 ADMIN INFLUENZA VIRUS VAC CPT-4: G0008 03/15/2016 FLU VACC 4 STEPHANIE [address] YRS PLUS IM SNOMED CT: 06843080 CPT-4: 17841 03/15/2016 THER/PROPH/DIAG INJ SC/IM CPT-4: 77032 02/25/2016 THER/PROPH/DIAG INJ SC/IM CPT-4: 62946 02/02/2016 THER/PROPH/DIAG INJ SC/IM CPT-4: 08358 01/18/2016 VITAMIN B12 INJECTION CPT- 4: J3420 12/29/2015 THER/PROPH/DIAG INJ SC/IM CPT-4: 55092 12/29/2015 THER/PROPH/DIAG INJ SC/IM CPT-4: 09704 12/08/2015 THER/PROPH/DIAG INJ SC/IM CPT-4: 17203 11/23/2015 URINALYSIS NONAUTO W/O SCOPE CPT-4: 20875 11/23/2015 THER/PROPH/DIAG INJ SC/IM CPT-4: 26065 11/11/2015 THER/PROPH/DIAG INJ SC/IM CPT-4: 86104 10/29/2015 THER/PROPH/DIAG INJ SC/IM CPT-4: 91102 10/12/2015 VITAMIN B12 INJECTION CPT- 4: J3420 10/12/2015 THER/PROPH/DIAG INJ SC/IM CPT-4: 71058 09/29/2015 THER/PROPH/DIAG INJ SC/IM CPT-4: 26782 09/17/2015 THER/PROPH/DIAG INJ SC/IM CPT-4: 54571 09/03/2015 THER/PROPH/DIAG INJ SC/IM CPT-4: 24741 08/17/2015 THER/PROPH/DIAG INJ SC/IM CPT-4: 01011 08/06/2015 THER/PROPH/DIAG INJ SC/IM CPT-4: 58471 07/22/2015 THER/PROPH/DIAG INJ SC/IM CPT-4: 87862 07/08/2015 THER/PROPH/DIAG INJ SC/IM CPT-4: 51131 06/23/2015 THER/PROPH/DIAG INJ SC/IM CPT-4: 88283 06/08/2015 THER/PROPH/DIAG INJ SC/IM CPT-4: 53203 05/27/2015 DESTRUCT PREMALG LESION CPT-4: 33617 05/19/2015 DESTRUCT PREMALG LES 2-14 CPT-4: 76024 05/19/2015 THER/PROPH/DIAG INJ SC/IM CPT-4: 74571 05/12/2015 VITAMIN B12 INJECTION CPT- 4: J3420 05/12/2015 THER/PROPH/DIAG INJ SC/IM CPT-4: 01496 04/30/2015 VITAMIN B12 INJECTION CPT- 4: J3420 04/30/2015 THER/PROPH/DIAG INJ SC/IM CPT-4: 26292 04/16/2015 THER/PROPH/DIAG INJ SC/IM CPT-4: 23414 04/02/2015 VITAMIN B12 INJECTION CPT- 4: J3420 04/02/2015 THER/PROPH/DIAG INJ SC/IM CPT-4: 80713 03/18/2015 THER/PROPH/DIAG INJ SC/IM CPT-4: 98891 03/03/2015 THER/PROPH/DIAG INJ SC/IM CPT-4: 20489 02/18/2015 THER/PROPH/DIAG INJ SC/IM CPT-4: 87207 02/04/2015 VITAMIN B12 INJECTION CPT- 4: J3420 02/04/2015 THER/PROPH/DIAG INJ SC/IM CPT-4: 65863 01/22/2015 THER/PROPH/DIAG INJ SC/IM CPT-4: 73867 01/08/2015 VITAMIN B12 INJECTION CPT- 4: J3420 01/08/2015 THER/PROPH/DIAG INJ SC/IM CPT-4: 08760 12/25/2014 VITAMIN B12 INJECTION CPT- 4: J3420 12/25/2014 THER/PROPH/DIAG INJ SC/IM CPT-4: 45716 12/10/2014 VITAMIN B12 INJECTION CPT- 4: J3420 12/10/2014 THER/PROPH/DIAG INJ SC/IM CPT-4: 45995 11/26/2014 VITAMIN B12 INJECTION CPT- 4: J3420 11/26/2014 THER/PROPH/DIAG INJ SC/IM CPT-4: 83237 11/12/2014 VITAMIN B12 INJECTION CPT- 4: J3420 11/12/2014 THER/PROPH/DIAG INJ SC/IM CPT-4: 48190 10/28/2014 Vital Signs Date Vital 05/03/2018 Blood Pressure 1: 140/70 Code: 8480-6 BMI: 26.0 Code: 82183-1 Heart Rate 1: 70 bpm Height: 5'6" SpO2: 94% Weight: 161 lbs 04/26/2018 Height: 5'6" 02/26/2018 Blood Pressure 1: 130/72 Code: 8480-6 BMI: 27.9 Code: 87579-4 Heart Rate 1: 72 bpm Height: 5'6" SpO2: 93% Weight: 173 lbs 12/12/2017 Blood Pressure 1: 126/74 Code: 8480-6 BMI: 27.4 Code: 65228-7 Heart Rate 1: 83 bpm Height: 5'6" SpO2: 98% Weight: 170 lbs 12/04/2017 Blood Pressure 1: 104/68 Code: 8480-6 BMI: 28.2 Code: 66913-3 Heart Rate 1: 85 bpm Height: 5'6" SpO2: 95% Weight: 175 lbs 11/20/2017 Blood Pressure 1: 130/68 Code: 8480-6 BMI: 28.4 Code: 40789-9 Heart Rate 1: 80 bpm Height: 5'6" SpO2: 99% Weight: 176 lbs 11/02/2017 Height: 5'6" 09/15/2017 Blood Pressure 1: 134/74 Code: 8480-6 BMI: 28.4 Code: 96496-4 Heart Rate 1: 88 bpm Height: 5'6" SpO2: 98% Weight: 176 lbs 09/07/2017 Blood Pressure 1: 12464 Code: 8480-6 Heart Rate 1: 90 bpm Height: SpO2: 97% Weight: 08/30/2017 Blood Pressure 1: 140/76 Code: 8480-6 BMI: 28.4 Code: 42417-4 Heart Rate 1: 90 bpm Height: 5'6" SpO2: 94% Weight: 176 lbs 07/06/2017 Blood Pressure 1: 132/66 Code: 8480-6 BMI: 29.4 Code: 51833-4 Heart Rate 1: 85 bpm Height: 5'6" SpO2: 97% Weight: 182 lbs 06/20/2017 Blood Pressure 1: 134/86 Code: 8480-6 Heart Rate 1: 90 bpm Height: SpO2: 98% Weight: 06/05/2017 BMI: 29.1 Code: 55473-4 Height: 5'6" Weight: 180 lbs 05/25/2017 Blood Pressure 1: 126/76 Code: 8480-6 BMI: 29.1 Code: 15133-9 Heart Rate 1: 77 bpm Height: 5'6" SpO2: 97% Weight: 180 lbs 03/23/2017 Blood Pressure 1: 142/84 Code: 8480-6 BMI: 29.1 Code: 72088-5 Heart Rate 1: 91 bpm Height: 5'6" SpO2: 97% Weight: 180 lbs 01/23/2017 Blood Pressure 1: 150/90 Code: 8480-6 BMI: 29.9 Code: 53360-2 Heart Rate 1: 81 bpm Height: 5'6" SpO2: 97% Weight: 185 lbs 11/02/2016 Blood Pressure 1: 148/78 Code: 8480-6 BMI: 29.7 Code: 04081-1 Heart Rate 1: 87 bpm Height: 5'6" SpO2: 97% Weight: 184 lbs 09/29/2016 Blood Pressure 1: 128/78 Code: 8480-6 BMI: 29.7 Code: 10154-5 Heart Rate 1: 78 bpm Height: 5'6" SpO2: 98% Weight: 184 lbs 07/26/2016 Blood Pressure 1: 138/72 Code: 8480-6 BMI: 30.0 Code: 35615-8 Heart Rate 1: 85 bpm Height: 5'6" SpO2: 97% Weight: 186 lbs 05/30/2016 Blood Pressure 1: 132/76 Code: 8480-6 BMI: 30.0 Code: 85453-5 Heart Rate 1: 80 bpm Height: 5'6" SpO2: 98% Waist Measure (cm): 99 cm Weight: 186 lbs 05/25/2016 Blood Pressure 1: 132/76 Code: 8480-6 BMI: 30.0 Code: 03518-3 Heart Rate 1: 80 bpm Height: 5'6" SpO2: 96% Weight: 186 lbs 02/25/2016 Blood Pressure 1: 110/64 Code: 8480-6 Heart Rate 1: 82 bpm Height: SpO2: 96% Weight: 01/25/2016 Blood Pressure 1: 118/70 Code: 8480-6 BMI: 30.0 Code: 33415-5 Heart Rate 1: 78 bpm Height: 5'6" SpO2: 97% Weight: 186 lbs 11/11/2015 Blood Pressure 1: 128/82 Code: 8480-6 BMI: 29.2 Code: 83638-2 Heart Rate 1: 86 bpm Height: 5'6" SpO2: 96% Temperature: 36.4 (C) / 97.6 (F) Weight: 181 lbs 10/12/2015 Blood Pressure 1: 118/70 Code: 8480-6 BMI: 29.2 Code: 09972-4 Heart Rate 1: 81 bpm Height: 5'6" SpO2: 95% Weight: 181 lbs 09/03/2015 Blood Pressure 1: 138/78 Code: 8480-6 BMI: 29.9 Code: 73022-3 Heart Rate 1: 88 bpm Height: 5'6" SpO2: 97% Weight: 185 lbs 05/19/2015 Blood Pressure 1: 146/78 Code: 8480-6 BMI: 30.0 Code: 49189-0 Heart Rate 1: 66 bpm Height: 5'6" SpO2: 97% Weight: 186 lbs 05/12/2015 Blood Pressure 1: 120/70 Code: 8480-6 BMI: 29.9 Code: 49348-6 Heart Rate 1: 89 bpm Height: 5'6" SpO2: 95% Weight: 185 lbs 01/13/2015 Blood Pressure 1: 140/90 Code: 8480-6 BMI: 30.3 Code: 70391-5 Heart Rate 1: 84 bpm Height: 5'6" SpO2: 95% Weight: 188 lbs 12/16/2014 Blood Pressure 1: 140/82 Code: 8480-6 BMI: 29.5 Code: 73203-4 Heart Rate 1: 86 bpm Height: 5'6" [...] data Encounters Encounter Performer Location Codes Date ([id number]) [id number] EST. PATIENT, LEVEL IV Diagnosis: Essential (primary) hypertension[ICD10: I10] Diagnosis: Type 2 diabetes mellitus without complications[ICD10: E11.9] Yarely Vega MD, [facility] CPT-4: 61273 05/03/2018 ([id number]) 33217 EST. PATIENT, LEVEL III Diagnosis: Pain in left shoulder[ICD10: M25.512] Diagnosis: Pain in right shoulder[ICD10: M25.511] Yarely Vega MD, [facility] CPT-4: 94885 02/26/2018 ([id number]) 03986 EST. PATIENT, LEVEL III Diagnosis: Nausea[ICD10: R11.0] Diagnosis: Cough[ICD10: R05] Diagnosis: 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 factor deficiency[ICD10: D51.0] Janet Vega MD, [facility] CPT-4: 30311 12/12/2017 ([id number]) 11495 EST. PATIENT, LEVEL IV Diagnosis: Acute bronchitis due to Hemophilus influenzae[ICD10: J20.1] Diagnosis: Cough[ICD10: R05] Yarely Vega MD, [facility] CPT-4: 96702 12/04/2017 ([id number]) 68841 EST. PATIENT, LEVEL IV Diagnosis: Essential (primary) hypertension[ICD10: I10] Diagnosis: Cough[ICD10: R05] Diagnosis: Chronic atrial fibrillation[ICD10: I48.2] Yarely Vega MD, [facility] CPT-4: 29217 11/20/2017 ([id number]) 96883 EST. PATIENT, LEVEL III Diagnosis: Cough[ICD10: R05] Diagnosis: Acute upper respiratory infection, unspecified[ICD10: J06.9] Janet Vega MD, [facility] CPT-4: 74934 09/15/2017 [id number] EST. PATIENT, LEVEL III Diagnosis: Laceration without foreign body of right forearm, initial encounter[ICD10: S51.811A] Diagnosis: Other vitamin B12 deficiency anemias[ICD10: D51.8] Brianna Vega MD, [facility] CPT-4: 79760 09/07/2017 ([id number]) 04210 EST. PATIENT, LEVEL IV Diagnosis: Chronic atrial fibrillation[ICD10: I48.2] Diagnosis: Other allergic rhinitis[ICD10: J30.89] Diagnosis: Encounter for therapeutic drug level monitoring[ICD10: Z51.81] Yarely Vega MD, [facility] CPT-4: 49075 08/30/2017 ([id number]) 97186 EST. PATIENT, LEVEL IV Diagnosis: Atrophy of thyroid (acquired)[ICD10: E03.4] Diagnosis: Cough[ICD10: R05] Diagnosis: Laceration without foreign body of left forearm, initial encounter[ICD10: S51.812A] Diagnosis: Candidiasis of skin and nail[ICD10: B37.2] Diagnosis: Other vitamin B12 deficiency anemias[ICD10: D51.8] Diagnosis: Slow transit constipation[ICD10: K59.01] Yarely Vega MD, [facility] CPT-4: 08966 07/06/2017 [id number] EST. PATIENT, LEVEL III Diagnosis: Other vitamin B12 deficiency anemias[ICD10: D51.8] Diagnosis: Acute laryngopharyngitis[ICD10: J06.0] Diagnosis: Other allergic rhinitis[ICD10: J30.89] [facility] CPT- 4: 72340 06/20/2017 ([id number]) 80513 EST. PATIENT, LEVEL IV Diagnosis: Essential (primary) hypertension[ICD10: I10] Diagnosis: Chronic atrial fibrillation[ICD10: I48.2] Diagnosis: Atrophy of thyroid (acquired)[ICD10: E03.4] Diagnosis: 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 factor deficiency[ICD10: D51.0] Yarely Vega MD, [facility] CPT-4: 32323 05/25/2017 ([id number]) 13209 EST. 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 PATIENT, LEVEL IV Diagnosis: Type 2 diabetes mellitus without complications[ICD10: E11.9] Diagnosis: Essential (primary) hypertension[ICD10: I10] Diagnosis: Headache[ICD10: R51] Diagnosis: Atrophy of thyroid (acquired)[ICD10: E03.4] Diagnosis: Vitamin B12 deficiency anemia, unspecified[ICD10: D51.9] [facility] CPT-4: 64532 01/23/2017 [id number] EST. PATIENT, LEVEL III Diagnosis: Low back pain[ICD10: M54.5] Diagnosis: Pain in thoracic spine[ICD10: M54.6] Brianna Vega MD [facility] CPT- 4: 50148 11/02/2016 ([id number]) 90496 EST. PATIENT, LEVEL IV Diagnosis: Essential (primary) hypertension[ICD10: I10] Diagnosis: Other vitamin B12 deficiency anemias[ICD10: D51.8] Diagnosis: Generalized abdominal pain[ICD10: R10.84] Yarely Vega MD [facility] CPT-4: 36867 09/29/2016 ([id number]) 28392 EST. PATIENT, LEVEL IV Diagnosis: Essential (primary) hypertension[ICD10: I10] Yarely Vega MD [facility] CPT-4: 17734 07/26/2016 ([id number]) 09056 EST. PATIENT, LEVEL IV Diagnosis: Benign lipomatous neoplasm of skin and subcutaneous tissue of right leg[ICD10: D17.23] Diagnosis: Pain in right ankle and joints of right foot[ICD10: M25.571] Diagnosis: Encounter for immunization[ICD10: Z23] Diagnosis: Vitamin B12 deficiency anemia, unspecified[ICD10: D51.9] Yarely Vega MD [facility] CPT-4: 07802 05/25/2016 [id number] EST. PATIENT, LEVEL III Diagnosis: Other chest pain[ICD10: R07.89] Diagnosis: Other vitamin B12 deficiency anemias[ICD10: D51.8] Brianna Vega MD [facility] CPT-4: 32424 02/25/2016 ([id number]) 17713 EST. 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 PATIENT, LEVEL III Diagnosis: Other vitamin B12 deficiency anemias[ICD10: D51.8] Diagnosis: Acute nasopharyngitis [common cold][ICD10: J00] Diagnosis: Other allergic rhinitis[ICD10: J30.89] Brianna Vega MD, [facility] CPT- 4: 63803 11/11/2015 ([id number]) 63499 EST. PATIENT, LEVEL IV Diagnosis: Essential tremor[ICD10: G25.0] Diagnosis: Chronic fatigue, unspecified[ICD10: R53.82] Diagnosis: Other hypersomnia[ICD10: G47.19] Diagnosis: Essential (primary) hypertension[ICD10: I10] Yarely Vega MD, [facility] CPT-4: 39873 10/12/2015 ([id number]) 94037 EST. PATIENT, LEVEL IV Diagnosis: Essential (primary) hypertension[ICD10: I10] Diagnosis: Chronic atrial fibrillation[ICD10: I48.2] Diagnosis: Abnormal levels of other serum enzymes[ICD10: R74.8] Diagnosis: Type 2 diabetes mellitus without complications[ICD10: E11.9] Diagnosis: Vitamin B12 deficiency anemia, unspecified[ICD10: D51.9] Yarely Vega MD, [facility] CPT-4: 67451 09/03/2015 ([id number]) 49589 EST. PATIENT, LEVEL III Diagnosis: Nausea[ICD10: R11.0] Diagnosis: Essential tremor[ICD10: G25.0] Diagnosis: Actinic keratosis[ICD10: L57.0] Yarely Vega MD, [facility] CPT-4: 47617 05/19/2015 ([id number]) 40222 EST. PATIENT, LEVEL IV Diagnosis: Vitamin B12 deficiency anemia, unspecified[ICD10: D51.9] Diagnosis: Chronic atrial fibrillation[ICD10: I48.2] Diagnosis: Headache[ICD10: R51] Diagnosis: Chronic fatigue, unspecified[ICD10: R53.82] Diagnosis: Cervicalgia[ICD10: M54.2] Yarely Vega MD, [facility] CPT-4: 38915 05/12/2015 ([id number]) 97416 EST. PATIENT, LEVEL IV Diagnosis: ESSENTIAL HYPERTENSION[ICD9: 401.9] Diagnosis: Afib[ICD9: 427.31] Diagnosis: Anxiety[ICD9: 300.00] Diagnosis: Insomnia[ICD9: 780.52] [facility] CPT-4: 91216 01/13/2015 ([id number]) OFFICE VISIT, NEW - LEVEL 4 Diagnosis: Hypothyroidism[ICD9: 244.9] Diagnosis: DIABETES TYPE II[ICD9: 250.00] Diagnosis: ESSENTIAL HYPERTENSION[ICD9: 401.9] Diagnosis: Afib[ICD9: 427.31] Diagnosis: Anxiety[ICD9: 300.00] Diagnosis: B12 deficiency[ICD9: 266.2] [facility] CPT-4: 07441 12/16/2014 Plan of Care Planned Activity Notes Codes Status Date Appointment: Injection 06/20/2018 Patient Education: Patient Medication Summary Completed 06/20/2018 Appointment: [facility] ([facility] min) Complex 06/07/2018 Appointment: Injection 06/06/2018 Patient Education: Patient Medication Summary Completed 06/06/2018 Appointment: Yarely Vega WPtel: [address] [place], [place] [address] [place] (15 min) Moderate 05/31/2018 Appointment: Injection [...] restart flonase 05/03/2018 Appointment: Yarely Vega WPtel: [address] [place], [place] [address] [place] (15 min) Moderate 05/03/2018 Patient Education: [...] intervention. 02/26/2018 App[facility]ment: [facility] [phone] [facility] [place] (15 min) Moderate 02/26/2018 Patient Education: Patient Medication Summary Completed 02/26/2018 Care Plan: Referral Order SNOMED-CT : [id number] Pending 02/26/2018 Appointment: Injection 02/08/2018 Patient Education: Patient Medication Summary Completed 02/08/2018 Appointment: Injection 01/24/2018 Patient Education: Patient Medication Summary Completed 01/24/2018 Appointment: Injection 01/10/2018 Patient Education: Patient Medication Summary Completed 01/10/2018 Appointment: Injection 12/27/2017 Patient Education: Patient Medication Summary Completed 12/27/2017 App[facility]ment: [facility] [phone] [facility] [place] (15 min) Moderate 12/26/2017 Visit Plan: Dzpwff-duvjwlmmk-xwzpipks protonix-follow up with Dr Navarro as scheduled Cough-recent bronchitis-symptoms improved-call if symptoms do not completely resolve 12/12/2017 App[facility]ment[facility] [phone] [phone] [place] (15 min) Moderate 12/12/2017 Patient Education: Patient Medication Summary Completed 12/12/2017 Visit Plan: Bronchitis - acute case of bronchitis identified. Pt has been given antibiotics, breathing treatments as appropriate, and pt has been instructed to call if symptoms are not improved, or if symptoms acutely worsen. Cough - rx for antibiotics as well as cough medication. 12/04/2017 Appointment: [facility] [phone] [facility] (15 min) Moderate 12/04/2017 Patient [...] Fatigue/malaise -Pt was advsied to ask the Wheel Alignment Mechanic the following: ask the heart doctor if [...] becoming uncontrolled. 11/20/2017 Appointment: [facility] [phone] [facility] (15 min) Moderate 11/20/2017 Patient Education: [...] worse. 09/15/2017 Appointment: Janet Fam WPtel: [phone] [phone] [place] (15 min) Moderate 09/15/2017 Patient Education: Patient Medication Summary Completed 09/15/2017 Appointment: Yarely Vega WPtel: [facility] [place] (15 min) Moderate 09/11/2017 Visit Plan: Skin tear and Cellulitis - The patient was instructed in appropriate wound care. The patient was instructed to use the antibiotic ointment as per RX. The patient is to call for any change in symptoms, increase in size of the lesion, increase in pain, worsening redness, warmth, discharge. 09/07/2017 Appointment: Brianna Otoole WPtel: [phone] [facility] [place] (10 min) Simple 09/07/2017 Patient Education: Patient Medication Summary Completed 09/07/2017 Visit Plan: Lipoma - left ankle - talk to dr. barnes about possible surgery/laser for treatment of lipoma. Fatigue/malaise -Pt was advsied to ask the Wheel Alignment Mechanic the following: ask the heart doctor if there is an alternative to the amiodarone - you may be having side effects from the medication causing you to have pruritus (itching) and feeling like you have body aches, muscle aches, joint pain, fatigue, weight loss (decreased appetite), and pneumonia like symptoms. Congestion - claritin 10mg daily. 08/30/2017 Appointment: Yarely Vega WPtel: [facility]1 [facility] [place] (15 min) Moderate 08/30/2017 Patient Education: Patient Medication Summary Completed 08/30/2017 Appointment: Injection 08/24/2017 Appointment: Yarely Vega WPtel: [facility]9 [facility] [place] (15 min) Moderate 08/24/2017 Patient [...] on this regimen. Skin tear - nakita arzo coban, pt to change every 2 days and call if not resolving. Yeast infection of gluteus - rx for nystatin powder. Cough improving - continue with current treatment plan and mucinex 07/06/2017 Appointment: Yarely Vega WPtel: [phone] [facility]66[facility] (15 min) Moderate 07/06/2017 Patient Education: Patient [...] spray. 06/20/2017 Appointment: Brianna Otoole WPtel: [phone] [facility] (15 min) Moderate 06/20/2017 Patient Education: Patient [...] Injection 06/05/2017 Appointment: [phone] [facility] - Annual Wellness Visit 06/05/2017 Patient Education: [...] control. 05/25/2017 [phone] ([facility] min) Moderate 05/25/2017 Patient [...] wall. Fatigue - pt to discuss with Wheel Alignment Mechanic about the possibility of amiodarone causing her fatigue/malaise. 03/23/2017 Appointment: [phone] (15 min) Moderate 03/23/2017 Patient [...] twice daily. 01/23/2017 Appointment: [facility]ega [facility]Ptel[facility] (15 min) Moderate 01/23/2017 [facility] [place] (15 min) Moderate 11/02/2016 Patient [...] carafate 09/29/2016 Appointment: [facility]el[phone] [place] (15 min) Moderate 09/29/2016 Patient Education: Patient Medication Summary Completed 09/29/2016 Appointment: [phone] [place] (15 min) Moderate 09/27/2016 Appointment: [facility]el[phone] [place] (15 min) Moderate 09/20/2016 Appointment: [facility]el[phone] [place] (15 min) Moderate 09/20/2016 Patient Education: Patient Medication Summary Completed 09/06/2016 Appointment: [facility]el[phone] (15 min) Moderate 08/30/2016 Appointment: Injection [...] concerns. 07/26/2016 Appointment: [facility]el[phone] (15 min) Moderate 07/26/2016 Patient [...] surrogate. 05/30/2016 App[facility]ment: [facility]toole [facility]el[phone] [facility] - Annual Wellness Visit 05/30/2016 Patient Education: [...] bedtime 05/25/2016 Appointment: [facility]el[phone] (15 min) Moderate 05/25/2016 Patient Education: Patient Medication Summary Completed 05/25/2016 Patient Education: Obesity Completed 05/25/2016 Care Plan: Referral Order SNOMED-CT : [id number] Pending 05/25/2016 Appointment: Injection 05/10/2016 Patient Education: Patient Medication Summary Completed 05/10/2016 Appointment: Injection 04/26/2016 Patient Education: Patient Medication Summary Completed 04/26/2016 Appointment: Injection 04/11/2016 Patient Education: Patient Medication Summary Completed 04/11/2016 Appointment: Injection 03/31/2016 Patient Education: Patient Medication Summary Completed 03/31/2016 Patient Education: Patient Medication Summary Completed 03/22/2016 Care Plan: SCREENINGMAMMOGRAPHYDIGITAL LOINC : 74772-5 Pending 03/22/2016 Appointment: Injection 03/15/2016 Patient Education: [...] concerns. 02/25/2016 Appointment: [facility]toole [facility]el[phone] [place] (15 min) Moderate 02/25/2016 Patient [...] the patients recent sleep study - recommended [place] home patient eval of pt - nocturnal [...] the patients recent sleep study - recommended [place] home patient eval of pt - nocturnal [...] later. 10/12/2015 Appointment: [facility]el[phone] (15 min) Moderate 10/12/2015 Patient [...] Completed 08/17/2015 Appointment: [facility]ega [facility]Ptel[phone] (15 min) Moderate 08/11/2015 Appointment: [...] x 2 05/19/2015 Appointment: Yarely Vega WPtel[facility] (30 min) Complex 05/19/2015 Patient [...] - continue with prn alprazolam. 01/13/2015 Appointment: [place] [facility]Ptel[phone] [place] (15 min) Moderate 01/13/2015 [...] current medications. 12/16/2014 Appointment: [facility]el[phone] [place] ([place] New Patient [...] to post-nasal drainage - restart flonase . Wwxyho-vmgnofnma-xxthkeke protonix-follow up with Dr Navarro as scheduled [...] Fatigue/malaise -Pt was advsied to ask the Wheel Alignment Mechanic the following: ask the heart doctor if [...] Anxiety - continue with prn alprazolam. . Skin tear and Cellulitis - The [...] Fatigue/malaise -Pt was advsied to ask the Wheel Alignment Mechanic the following: ask the heart doctor if [...] wall. Fatigue - pt to discuss with Wheel Alignment Mechanic about the possibility of amiodarone causing her [...] the patients recent sleep study - recommended [place] home patient eval of pt - nocturnal [...] the patients recent sleep study - recommended [place] home patient eval of pt - nocturnal [...]
--- OUTSIDE RECORDS SUMMARY | 2018-12-05 19:04 | XMS REPORT | CCD ---
Author Author [facility] Organization [facility] Address [address] [place] [address] Phone Care Team Providers Care Administrative Project Coordinator Name Role Phone PP Unavailable CCM Unavailable Summary Purpose Interface Exchange Insurance Providers Payer name Policy type / Coverage type Covered constitution party ID Effective Begin Date Effective End Date WPS Medicare Part B Medicare Part B [id number] Unknown Principal Life Insurance Medicare Part B [id number] Unknown [employer] in [place] Medicare Part B [id number] Unknown Family history Brother Diagnosis Age At Onset Heart Attack Unknown Mother Diagnosis Age At Onset Hypertension Unknown kidney disease Unknown Stroke Unknown Father Diagnosis Age At Onset Arthritis Unknown Social History Social History Element Codes Description Effective Dates Employment Unknown Retired worked at [employer] 11/20/2017 Marital status Unknown Single 12/16/[address]: 7569042 Former smoker 12/16/[address]: 963867331 Never drinks alcohol 12/16/2014 Allergies, Adverse Reactions, Alerts Substance Reaction Codes Entered Date Inactivated Date Status CODEINE RxNorm: 2670 05/25/2016 No Inactive Date Active ciprofloxacin RxNorm: 00710 12/16/2014 No Inactive Date Active MORPHINE SULFATE [...] (vit B-12) 1,000 mcg/mL injection solution RxNorm: 120381 Milliliter(s) Inj 06/20/2018 06/20/2018 Inactive hydrocodone 5 mg-acetaminophen 325 mg tablet RxNorm: 884580 1-2 Tablet(s) PO Q6 as needed for pain 06/20/2018 07/19/2018 Active Flonase Allergy Relief 50 mcg/actuation nasal spray,suspension RxNorm: 0792205 [place] 1 [place] NASAL BID 06/20/2018 10/17/2018 Active cyanocobalamin (vit B-12) 1,000 mcg/mL injection solution RxNorm: 941276 Milliliter(s) Inj 06/06/2018 06/06/2018 Inactive alprazolam 0.25 mg tablet RxNorm: 322927 1 Tablet(s) PO BID 05/25/2018 08/22/2018 Active hydrocodone 5 mg-acetaminophen 325 mg tablet RxNorm: 004219 1-2 Tablet(s) PO Q6 as needed for pain 05/24/2018 06/19/2018 Inactive cyanocobalamin (vit B-12) 1,000 mcg/mL injection solution RxNorm: 505597 Milliliter(s) Inj 05/24/2018 05/24/2018 Inactive cyanocobalamin (vit B-12) 1,000 mcg/mL injection solution RxNorm: 036031 Milliliter(s) Inj 05/09/2018 05/09/2018 Inactive Claritin 10 mg tablet RxNorm: 633236 TAKE 1 TABLET BY MOUTH ONCE DAILY 05/08/2018 05/02/2019 Active Generic For:CLARITIN 10MG 05/07/2018 9:13:47 AM cyanocobalamin (vit B-12) 1,000 mcg/mL injection solution RxNorm: 947043 INJECT ONE 1 ML EVERY TWO WEEKS 05/03/2018 04/03/2019 Active 05/03/2018 9:13:42 AM Mobic 15 mg tablet RxNorm: 721923 Tablet(s) 1 Tablet(s) PO daily 04/26/2018 04/20/2019 Active buspirone 15 mg tablet RxNorm: 958749 Tablet(s) TAKE 1 TABLET BY MOUTH TWICE DAILY 04/26/2018 04/20/2019 Active Generic For:BUSPAR 15MG 05/31/2017 9:19:20 AM Norvasc 5 mg tablet RxNorm: 215352 Tablet(s) 1 Tablet(s) PO daily 04/26/2018 04/20/2019 Active cyanocobalamin (vit B-12) 1,000 mcg/mL injection solution RxNorm: 328436 Milliliter(s) Inj 04/26/2018 04/26/2018 Inactive hydrocodone 5 mg-acetaminophen 325 mg tablet RxNorm: 790854 1-2 Tablet(s) PO Q6 as needed for pain 04/25/2018 05/23/2018 Inactive cyanocobalamin (vit B-12) 1,000 mcg/mL injection solution RxNorm: 357637 Milliliter(s) Inj 04/12/2018 04/12/2018 Inactive Topamax 25 mg tablet RxNorm: 766365 1 Tablet(s) PO BID 04/09/2018 05/02/2018 Inactive Generic For:TOPAMAX 25MG 12/06/2016 9:15:13 AM Zoloft 50 mg tablet RxNorm: 831072 TAKE 1 TABLET BY MOUTH ONCE DAILY 04/04/2018 12/29/2018 Active Generic For:ZOLOFT 50MG 04/04/2018 9:13:25 AM cyanocobalamin (vit B-12) 1,000 mcg/mL injection solution RxNorm: 837185 Milliliter(s) Inj 03/30/2018 03/30/2018 Inactive levothyroxine 125 mcg tablet RxNorm: 681832 TAKE 1 TABLET BY MOUTH EVERY DAY 03/26/2018 09/21/2018 Active Generic For:SYNTHROID 125MCG TAB 03/26/2018 9:15:59 AM liothyronine 5 mcg tablet RxNorm: 966931 TAKE 1 TABLET BY MOUTH TWICE DAILY 03/26/2018 09/21/2018 Active Generic For:CYTOMEL 5MCG 03/26/2018 9:15:54 AM hydrocodone 5 mg-acetaminophen 325 mg tablet RxNorm: 330377 1-2 Tablet(s) PO Q6 as needed for pain 03/19/2018 04/17/2018 Inactive cyanocobalamin (vit B-12) 1,000 mcg/mL injection solution RxNorm: 328760 Milliliter(s) Inj 03/16/2018 03/16/2018 Inactive Flonase Allergy Relief 50 mcg/actuation nasal spray,suspension RxNorm: 2886513 1 [place] NASAL BID 03/05/2018 06/19/2018 Inactive cyanocobalamin (vit B-12) 1,000 mcg/mL injection solution RxNorm: 050927 Milliliter(s) Inj 03/02/2018 03/02/2018 Inactive alprazolam 0.25 mg tablet RxNorm: 589572 1 Tablet(s) PO BID 02/28/2018 05/27/2018 Inactive cyanocobalamin (vit B-12) 1,000 mcg/mL injection solution RxNorm: 653556 Milliliter(s) Inj 02/08/2018 02/08/2018 Inactive cyanocobalamin (vit B-12) 1,000 mcg/mL injection solution RxNorm: 373866 Milliliter(s) Inj 01/24/2018 01/24/2018 Inactive albuterol sulfate 2.5 mg/3 mL (0.083 %) solution for nebulization RxNorm: 727472 3 Milliliter(s) INH Q6 PRN 01/24/2018 05/02/2018 Inactive Claritin 10 mg tablet RxNorm: 421709 1 Tablet(s) PO daily 01/15/2018 05/07/2018 Inactive cyanocobalamin (vit B-12) 1,000 mcg/mL injection solution RxNorm: 990244 Milliliter(s) Inj 01/10/2018 01/10/2018 Inactive hydrocodone 5 mg-acetaminophen 325 mg tablet RxNorm: 575664 1-2 Tablet(s) PO Q6 as needed for pain 01/09/2018 02/07/2018 Inactive cyanocobalamin (vit B-12) 1,000 mcg/mL injection solution RxNorm: 807037 Milliliter(s) Inj 12/27/2017 12/27/2017 Inactive cyanocobalamin (vit B-12) 1,000 mcg/mL injection solution RxNorm: 323339 1 Milliliter(s) Inj 12/12/2017 12/12/2017 Inactive Zofran ODT 4 mg disintegrating tablet RxNorm: 304509 1 Tablet(s) PO TID as needed 12/08/2017 12/09/2017 Inactive hydrocodone 2.5 mg-guaifenesin 200 mg/5 mL oral solution RxNorm: 500316 5 Milliliter(s) PO 12/04/2017 05/06/2018 Inactive doxycycline hyclate 100 mg capsule RxNorm: 8799483 1 Capsule(s) PO BID 12/04/2017 12/13/2017 Inactive cyanocobalamin (vit B-12) 1,000 mcg/mL injection solution RxNorm: 975681 Milliliter(s) Inj 12/01/2017 12/01/2017 Inactive Flonase Allergy Relief 50 mcg/actuation nasal spray,suspension RxNorm: 9823691 1 [place] NASAL BID 11/20/2017 2018 Inactive cyanocobalamin (vit B-12) 1,000 mcg/mL injection solution RxNorm: 492019 1 Milliliter(s) Inj 11/17/2017 11/17/2017 Inactive hydrocodone 5 mg-acetaminophen 325 mg tablet RxNorm: 177576 1-2 Tablet(s) PO Q6 as needed for pain 11/16/2017 12/15/2017 Inactive cyanocobalamin (vit B-12) 1,000 mcg/mL injection solution RxNorm: 036827 1 Milliliter(s) Inj 11/02/2017 11/02/2017 Inactive hydrocodone 5 mg-acetaminophen 325 mg tablet RxNorm: 731601 1-2 Tablet(s) PO Q6 as needed for pain 10/25/2017 11/15/2017 Inactive Claritin 10 mg tablet RxNorm: 787602 1 Tablet(s) PO daily 10/25/2017 11/19/2017 Inactive albuterol sulfate 2.5 mg/3 mL (0.083 %) solution for nebulization RxNorm: 609891 3 Milliliter(s) INH Q6 PRN 10/25/2017 01/23/2018 Inactive Claritin 10 mg tablet RxNorm: 125252 1 Tablet(s) PO daily 10/25/2017 10/24/2017 Inactive cyanocobalamin (vit B-12) 1,000 mcg/mL injection solution RxNorm: 029571 1 Milliliter(s) Inj 10/20/2017 10/20/2017 Inactive Zoloft 50 mg tablet RxNorm: 688916 TAKE 1 TABLET BY MOUTH ONCE DAILY 10/13/2017 04/03/2018 Inactive Generic For:ZOLOFT 50MG 10/13/2017 8:59:44 AM cyanocobalamin (vit B-12) 1,000 mcg/mL injection solution RxNorm: 990149 Milliliter(s) Inj 10/06/2017 10/06/2017 Inactive liothyronine 5 mcg tablet RxNorm: 318126 TAKE 1 TABLET BY MOUTH TWICE DAILY 10/03/2017 03/25/2018 Inactive Generic For:CYTOMEL 5MCG 10/03/2017 9:13:38 AM cyanocobalamin (vit B-12) 1,000 mcg/mL injection solution RxNorm: 515793 Milliliter(s) Inj 09/21/2017 09/21/2017 Inactive albuterol sulfate 2.5 mg/3 mL (0.083 %) solution for nebulization RxNorm: 261777 3 Milliliter(s) INH Q6 PRN 09/21/2017 10/24/2017 Inactive hydrocodone 5 mg-acetaminophen 325 mg tablet RxNorm: 941356 1-2 Tablet(s) PO Q6 as needed for pain 09/21/2017 10/20/2017 Inactive Kenalog 40 mg/mL suspension for injection RxNorm: 8091406 Milliliter(s) Inj 09/15/2017 09/15/2017 Inactive Keflex 500 mg capsule RxNorm: 444490 1 Capsule(s) PO TID 09/07/2017 09/16/2017 Inactive Please deliver to patient cyanocobalamin (vit B-12) 1,000 mcg/mL injection solution RxNorm: 775030 Milliliter(s) Inj 09/07/2017 09/07/2017 Inactive Aricept 10 mg tablet RxNorm: 236964 1 Tablet(s) PO daily 09/06/2017 08/31/2018 Active alprazolam 0.25 mg tablet RxNorm: 750877 1 Tablet(s) PO BID 09/06/2017 02/27/2018 Inactive hydrocodone 5 mg-acetaminophen 325 mg tablet RxNorm: 273593 1-2 Tablet(s) PO Q6 as needed for pain 08/24/2017 09/20/2017 Inactive cyanocobalamin (vit B-12) 1,000 mcg/mL injection solution RxNorm: 471155 Milliliter(s) Inj 08/24/2017 08/24/2017 Inactive Norvasc 5 mg tablet RxNorm: 557142 1 Tablet(s) PO daily 08/18/2017 04/25/2018 Inactive nystatin 100,000 unit/gram topical powder RxNorm: 332987 1 Gram(s) TOP QID 08/17/2017 08/26/2017 Inactive hydrocodone 5 mg-acetaminophen 325 mg tablet RxNorm: 151054 1-2 Tablet(s) PO Q6 as needed for pain 07/25/2017 08/23/2017 Inactive Tamiflu 75 mg capsule RxNorm: 614051 1 Capsule(s) PO BID 07/24/2017 12/11/2017 Inactive nystatin 100,000 unit/gram topical powder RxNorm: 067808 1 Gram(s) TOP QID 07/14/2017 07/22/2017 Inactive levothyroxine 125 mcg tablet RxNorm: 919190 Tablet(s) 1 Tablet(s) PO daily 07/10/2017 01/05/2018 Inactive nystatin 100,000 unit/gram topical powder RxNorm: 201858 1 Gram(s) TOP QID 07/06/2017 07/13/2017 Inactive cyanocobalamin (vit B-12) 1,000 mcg/mL injection solution RxNorm: 365952 Milliliter(s) Inj 07/06/2017 07/06/2017 Inactive Kenalog 40 mg/mL suspension for injection RxNorm: 2856644 1 Milliliter(s) Inj 06/20/2017 06/20/2017 Inactive doxycycline hyclate 100 mg capsule RxNorm: 1467753 1 Capsule(s) PO BID 06/20/2017 06/26/2017 Inactive cyanocobalamin (vit B-12) 1,000 mcg/mL injection solution RxNorm: 838299 Milliliter(s) Inj 06/20/2017 06/20/2017 Inactive Keflex 500 mg capsule RxNorm: 182921 1 Capsule(s) PO TID 06/14/2017 06/23/2017 Inactive Please deliver to patient Mobic 15 mg tablet RxNorm: 628045 1 Tablet(s) PO daily 06/14/2017 04/25/2018 Inactive cyanocobalamin (vit B-12) 1,000 mcg/mL injection solution RxNorm: 449357 Milliliter(s) Inj 06/05/2017 06/05/2017 Inactive buspirone 15 mg tablet RxNorm: 122664 TAKE 1 TABLET BY MOUTH TWICE DAILY 05/31/2017 04/25/2018 Inactive Generic For:BUSPAR 15MG 05/31/2017 9:19:20 AM cyanocobalamin (vit B-12) 1,000 mcg/mL injection solution RxNorm: 258404 Milliliter(s) Inj 05/25/2017 05/25/2017 Inactive hydrocodone 5 mg-acetaminophen 325 mg tablet RxNorm: 938988 1-2 Tablet(s) PO Q6 as needed for pain 05/25/2017 06/23/2017 Inactive amiodarone 200 mg tablet RxNorm: 574367 1/2 Tablet(s) PO daily 05/22/2017 No Stop Date Active cardiology decreased to 100mg daily cyanocobalamin (vit B-12) 1,000 mcg/mL injection solution RxNorm: 575444 Milliliter(s) Inj 05/16/2017 05/16/2017 Inactive Zofran ODT 4 mg disintegrating tablet RxNorm: 221157 1 Tablet(s) PO TID as needed 05/03/2017 05/04/2017 Inactive hydrocodone 5 mg-acetaminophen 325 mg tablet RxNorm: 742309 1-2 Tablet(s) PO Q6 as needed for pain 05/01/2017 05/05/2017 Inactive cyanocobalamin (vit B-12) 1,000 mcg/mL injection solution RxNorm: 011249 1 Milliliter(s) Inj 05/01/2017 05/01/2017 Inactive cyanocobalamin (vit B-12) 1,000 mcg/mL injection solution RxNorm: 405013 INJECT ONE 1 ML EVERY TWO WEEKS 04/26/2017 12/04/2018 Active 04/26/2017 9:08:52 AM Zoloft 50 mg tablet RxNorm: 757244 Tablet(s) TAKE 1 TABLET BY MOUTH DAILY 04/25/2017 10/12/2017 Inactive Generic For:ZOLOFT 50MG cyanocobalamin (vit B-12) 1,000 mcg/mL injection solution RxNorm: 955932 Milliliter(s) Inj 04/18/2017 04/18/2017 Inactive liothyronine 5 mcg tablet RxNorm: 982166 1 Tablet(s) PO BID 04/13/2017 10/02/2017 Inactive cyanocobalamin (vit B-12) 1,000 mcg/mL injection solution RxNorm: 871579 Milliliter(s) Inj 04/06/2017 04/06/2017 Inactive hydrocodone 5 mg-acetaminophen 325 mg tablet RxNorm: 166547 1-2 Tablet(s) PO Q6 as needed for pain 04/06/2017 04/10/2017 Inactive cyanocobalamin (vit B-12) 1,000 mcg/mL injection solution RxNorm: 170882 Milliliter(s) Inj 03/22/2017 03/22/2017 Inactive alprazolam 0.25 mg tablet RxNorm: 701659 1 Tablet(s) PO BID 03/17/2017 12/11/2017 Inactive alprazolam 0.25 mg tablet RxNorm: 795756 1 Tablet(s) PO BID 03/16/2017 09/05/2017 Inactive hydrocodone 5 mg-acetaminophen 325 mg tablet RxNorm: 469591 1-2 Tablet(s) PO Q6 as needed for pain 03/09/2017 03/13/2017 Inactive cyanocobalamin (vit B-12) 1,000 mcg/mL injection solution RxNorm: 235898 Milliliter(s) Inj 03/09/2017 03/09/2017 Inactive cyanocobalamin (vit B-12) 1,000 mcg/mL injection solution RxNorm: 297097 Milliliter(s) Inj 02/23/2017 02/23/2017 Inactive cyanocobalamin (vit B-12) 1,000 mcg/mL injection solution RxNorm: 804047 Milliliter(s) Inj 02/09/2017 02/09/2017 Inactive hydrocodone 5 mg-acetaminophen 325 mg tablet RxNorm: 398372 1-2 Tablet(s) PO Q6 as needed for pain 02/08/2017 02/12/2017 Inactive Topamax 25 mg tablet RxNorm: 047865 1 Tablet(s) PO BID 01/23/2017 05/22/2017 Inactive Generic For:TOPAMAX 25MG 12/06/2016 9:15:13 AM cyanocobalamin (vit B-12) 1,000 mcg/mL injection solution RxNorm: 415422 Milliliter(s) Inj 01/23/2017 01/23/2017 Inactive cyanocobalamin (vit B-12) 1,000 mcg/mL injection solution RxNorm: 160457 Milliliter(s) Inj 01/10/2017 01/10/2017 Inactive hydrocodone 5 mg-acetaminophen 325 mg tablet RxNorm: 309891 1-2 Tablet(s) PO Q6 as needed for pain 01/09/2017 01/13/2017 Inactive cyanocobalamin (vit B-12) 1,000 mcg/mL injection solution RxNorm: 269339 1 Milliliter(s) Inj 12/28/2016 12/28/2016 Inactive cyanocobalamin (vit B-12) 1,000 mcg/mL injection solution RxNorm: 638592 Milliliter(s) Inj 12/14/2016 12/14/2016 Inactive buspirone 15 mg tablet RxNorm: 914488 1 Tablet(s) PO BID 12/12/2016 05/30/2017 Inactive hydrocodone 5 mg-acetaminophen 325 mg tablet RxNorm: 732589 1-2 Tablet(s) PO Q6 as needed for pain 12/08/2016 12/12/2016 Inactive Topamax 25 mg tablet RxNorm: 412035 TAKE 1 TABLET BY MOUTH EVERY DAY AT BEDTIME 12/06/2016 01/22/2017 Inactive Generic For:TOPAMAX 25MG 12/06/2016 9:15:13 AM Lac-Hydrin Five 5 % lotion RxNorm: 697242 1 Gram(s) TOP daily 12/02/2016 05/02/2018 Inactive cyanocobalamin (vit B-12) 1,000 mcg/mL injection solution RxNorm: 564065 Milliliter(s) Inj 11/24/2016 11/24/2016 Inactive Ceftin 500 mg tablet RxNorm: 834590 1 Tablet(s) PO BID 11/11/2016 06/13/2017 Inactive Cipro 500 mg tablet RxNorm: 589828 1 Tablet(s) PO BID 11/11/2016 11/10/2016 Inactive Cipro 500 mg tablet RxNorm: 416907 1 Tablet(s) PO BID 11/11/2016 11/11/2016 Inactive cyanocobalamin (vit B-12) 1,000 mcg/mL injection solution RxNorm: 787986 1 Milliliter(s) Inj 11/07/2016 11/07/2016 Inactive hydrocodone 5 mg-acetaminophen 325 mg tablet RxNorm: 916192 1-2 Tablet(s) PO Q6 as needed for pain 11/02/2016 11/06/2016 Inactive cyanocobalamin (vit B-12) 1,000 mcg/mL injection solution RxNorm: 526863 Milliliter(s) Inj 10/24/2016 10/24/2016 Inactive levothyroxine 125 mcg tablet RxNorm: 449798 Tablet(s) 1 Tablet(s) PO daily 10/24/2016 04/21/2017 Inactive liothyronine 5 mcg tablet RxNorm: 486266 1 Tablet(s) PO BID 10/24/2016 04/12/2017 Inactive hydrocodone 5 mg-acetaminophen 325 mg tablet RxNorm: 147169 1-2 Tablet(s) PO Q6 as needed for pain 10/17/2016 10/21/2016 Inactive Keflex 500 mg capsule RxNorm: 459732 1 Capsule(s) PO TID 10/07/2016 10/06/2016 Inactive Keflex 500 mg capsule RxNorm: 870750 1 Capsule(s) PO TID 10/07/2016 10/16/2016 Inactive Please deliver to patient cyanocobalamin (vit B-12) 1,000 mcg/mL injection solution RxNorm: 629229 1 Milliliter(s) Inj 09/29/2016 09/29/2016 Inactive alprazolam 0.25 mg tablet RxNorm: 081198 1 Tablet(s) PO BID 09/20/2016 03/16/2017 Inactive Cozaar 100 mg tablet RxNorm: 387616 1 Tablet(s) PO daily 09/14/2016 No Stop Date Active metoprolol tartrate 50 mg tablet RxNorm: 239371 1/2 Tablet(s) PO BID 09/14/2016 12/12/2016 Inactive Zoloft 50 mg tablet RxNorm: 438084 Tablet(s) TAKE 1 TABLET BY MOUTH DAILY 09/14/2016 03/12/2017 Inactive Generic For:ZOLOFT 50MG liothyronine 5 mcg tablet RxNorm: 805772 1 Tablet(s) PO BID 09/14/2016 10/23/2016 Inactive Calmoseptine 0.44 %-20.6 % topical ointment RxNorm: 417505 1 Application TOP BID and as needed to sore on buttocks 09/07/2016 No Stop Date Active cyanocobalamin (vit B-12) 1,000 mcg/mL injection solution RxNorm: 897883 Milliliter(s) Inj 08/29/2016 08/29/2016 Inactive hydrocodone 5 mg-acetaminophen 325 mg tablet RxNorm: 873934 1-2 Tablet(s) PO Q6 as needed for pain 08/29/2016 10/16/2016 Inactive levothyroxine 125 mcg tablet RxNorm: 978609 1 Tablet(s) PO daily 08/25/2016 10/23/2016 Inactive Topamax 25 mg tablet RxNorm: 274930 TAKE 1 TABLET BY MOUTH EVERY DAY AT BEDTIME 08/17/2016 12/05/2016 Inactive Generic For:TOPAMAX 25MG 08/17/2016 2:14:37 PM hydrocodone 5 mg-acetaminophen 325 mg tablet RxNorm: 213270 1-2 Tablet(s) PO Q6 as needed for pain 08/11/2016 08/28/2016 Inactive hydrocodone 5 mg-acetaminophen 325 mg tablet RxNorm: 439486 1 -2 Tablet(s) PO Q6 as needed for pain 08/11/2016 08/18/2016 Inactive hydrocodone 5 mg-acetaminophen 325 mg tablet RxNorm: 504629 1 Tablet(s) PO Q6 as needed for pain 08/05/2016 08/10/2016 Inactive cyanocobalamin (vit B-12) 1,000 mcg/mL injection solution RxNorm: 953852 Milliliter(s) Inj 08/04/2016 08/04/2016 Inactive Norvasc 10 mg tablet RxNorm: 823975 1 Tablet(s) PO daily 07/26/2016 07/20/2017 Inactive alprazolam 0.25 mg tablet RxNorm: 156767 1 Tablet(s) PO QHS 07/21/2016 09/19/2016 Inactive Norvasc 5 mg tablet RxNorm: 593678 1 Tablet(s) PO daily 07/21/2016 07/25/2016 Inactive levothyroxine 125 mcg tablet RxNorm: 642961 1 Tablet(s) PO daily 07/21/2016 12/11/2017 Inactive cyanocobalamin (vit B-12) 1,000 mcg/mL injection solution RxNorm: 730341 Milliliter(s) Inj 07/21/2016 07/21/2016 Inactive Zoloft 50 mg tablet RxNorm: 550956 Tablet(s) TAKE 1 TABLET BY MOUTH DAILY 07/21/2016 09/13/2016 Inactive Generic For:ZOLOFT 50MG cyanocobalamin (vit B-12) 1,000 mcg/mL injection solution RxNorm: 373599 1 Milliliter(s) Inj 07/05/2016 07/05/2016 Inactive cyanocobalamin (vit B-12) 1,000 mcg/mL injection solution RxNorm: 010056 1 Milliliter(s) Inj 06/22/2016 06/22/2016 Inactive cyanocobalamin (vit B-12) 1,000 mcg/mL injection solution RxNorm: 821175 Milliliter(s) Inj 06/09/2016 06/09/2016 Inactive Aricept 10 mg tablet RxNorm: 352468 1 Tablet(s) PO daily 05/27/2016 05/21/2017 Inactive Mobic 15 mg tablet RxNorm: 873664 1 Tablet(s) PO daily 05/27/2016 05/21/2017 Inactive levothyroxine 125 mcg tablet RxNorm: 417176 1 Tablet(s) PO daily 05/25/2016 07/20/2016 Inactive cyanocobalamin (vit B-12) 1,000 mcg/mL injection solution RxNorm: 029225 1 Milliliter(s) Inj 05/25/2016 05/25/2016 Inactive doxycycline hyclate 100 mg capsule RxNorm: 0811365 1 Capsule(s) PO BID 05/16/2016 05/15/2016 Inactive doxycycline hyclate 100 mg capsule RxNorm: 0357378 1 Capsule(s) PO BID 05/16/2016 05/22/2016 Inactive cyanocobalamin (vit B-12) 1,000 mcg/mL injection solution RxNorm: 819049 Milliliter(s) Inj 05/10/2016 05/10/2016 Inactive cyanocobalamin (vit B-12) 1,000 mcg/mL injection solution RxNorm: 566753 Milliliter(s) Inj 04/26/2016 04/26/2016 Inactive Topamax 25 mg tablet RxNorm: 859826 1 Tablet(s) PO QPM 04/22/2016 08/16/2016 Inactive cyanocobalamin (vit B-12) 1,000 mcg/mL injection solution RxNorm: 177469 Milliliter(s) 1 Milliliter(s) Inj [id number] 04/11/2016 12/31/2017 Inactive liothyronine 5 mcg tablet RxNorm: 154766 1 Tablet(s) PO BID 04/11/2016 09/13/2016 Inactive cyanocobalamin (vit B-12) 1,000 mcg/mL injection solution RxNorm: 562575 Milliliter(s) Inj 04/11/2016 04/11/2016 Inactive cyanocobalamin (vit B-12) 1,000 mcg/mL injection solution RxNorm: 122162 Milliliter(s) Inj 03/31/2016 03/31/2016 Inactive cyanocobalamin (vit B-12) 1,000 mcg/mL injection solution RxNorm: 879766 1 Milliliter(s) Inj 03/15/2016 03/15/2016 Inactive levothyroxine 125 mcg tablet RxNorm: 503506 1 Tablet(s) PO daily 2016 03/03/2016 Inactive levothyroxine 125 mcg tablet RxNorm: 101109 1 Tablet(s) PO daily 2016 05/24/2016 Inactive cyanocobalamin (vit B-12) 1,000 mcg/mL injection solution RxNorm: 493133 Milliliter(s) Inj 02/25/2016 02/25/2016 Inactive cyanocobalamin (vit B-12) 1,000 mcg/mL injection solution RxNorm: 721349 1 Milliliter(s) Inj 02/02/2016 02/02/2016 Inactive sucralfate 1 gram tablet RxNorm: 642789 1 Tablet(s) PO QHS 01/25/2016 No Stop Date Active amiodarone 200 mg tablet RxNorm: 761539 1/2 Tablet(s) PO BID 01/25/2016 05/21/2017 Inactive cyanocobalamin (vit B-12) 1,000 mcg/mL injection solution RxNorm: 796911 Milliliter(s) Inj 01/18/2016 01/18/2016 Inactive cyanocobalamin (vit B-12) 1,000 mcg/mL injection solution RxNorm: 836368 Milliliter(s) Inj 12/29/2015 12/29/2015 Inactive Topamax 25 mg tablet RxNorm: 115614 1 Tablet(s) PO QPM 12/08/2015 04/05/2016 Inactive cyanocobalamin (vit B-12) 1,000 mcg/mL injection solution RxNorm: 198788 Milliliter(s) Inj 12/08/2015 12/08/2015 Inactive Bactrim DS 800 mg-160 mg tablet RxNorm: 232836 1 Tablet(s) PO BID 11/23/2015 11/22/2015 Inactive cyanocobalamin (vit B-12) 1,000 mcg/mL injection solution RxNorm: 322003 Milliliter(s) Inj 11/23/2015 11/23/2015 Inactive Bactrim DS 800 mg-160 mg tablet RxNorm: 695137 1 Tablet(s) PO BID 11/23/2015 11/29/2015 Inactive cyanocobalamin (vit B-12) 1,000 mcg/mL injection solution RxNorm: 830101 Milliliter(s) Inj 11/11/2015 11/11/2015 Inactive amoxicillin 500 mg capsule RxNorm: 154220 1 Capsule(s) PO TID 11/10/2015 11/19/2015 Inactive Zithromax Z-Henrique 250 mg tablet RxNorm: 915307 1 Tablet(s) PO UD 11/10/2015 01/24/2016 Inactive zpack x 1 amoxicillin 500 mg capsule RxNorm: 628787 1 Capsule(s) PO TID 11/10/2015 11/09/2015 Inactive cyanocobalamin (vit B-12) 1,000 mcg/mL injection solution RxNorm: 845537 1 Milliliter(s) Inj 10/29/2015 10/29/2015 Inactive Melcher [place] 3 capsule RxNorm: 1 Capsule(s) PO QAM , 2 Capsules at noon, 1 Capsule QHS 10/13/2015 No Stop Date Active potassium chloride ER 20 mEq tablet,extended release RxNorm: 990454 2 Tablet(s) PO daily at noon 10/13/2015 No Stop Date Active alprazolam 0.25 mg tablet RxNorm: 036226 1 Tablet(s) PO QHS 10/13/2015 07/20/2016 Inactive amiodarone 200 mg tablet RxNorm: 877859 1 Tablet(s) PO BID 10/13/2015 01/24/2016 Inactive cyanocobalamin (vit B-12) 1,000 mcg/mL injection solution RxNorm: 440178 1 Milliliter(s) Inj 10/12/2015 10/12/2015 Inactive Zofran 4 mg tablet RxNorm: 104268 1 Tablet(s) PO daily as needed 10/07/2015 05/24/2016 Inactive Zoloft 50 mg tablet RxNorm: 351796 TAKE 1 TABLET BY MOUTH DAILY 10/05/2015 05/01/2016 Inactive Generic For:ZOLOFT 50MG cyanocobalamin (vit B-12) 1,000 mcg/mL injection solution RxNorm: 569823 1 Milliliter(s) Inj 09/29/2015 09/29/2015 Inactive cyanocobalamin (vit B-12) 1,000 mcg/mL injection solution RxNorm: 164690 1 Milliliter(s) Inj 09/17/2015 09/17/2015 Inactive Norvasc 5 mg tablet RxNorm: 375842 1 Tablet(s) PO daily 09/17/2015 07/20/2016 Inactive liothyronine 5 mcg tablet RxNorm: 578898 1 Tablet(s) PO BID 09/17/2015 03/14/2016 Inactive Zoloft 50 mg tablet RxNorm: 998079 1 Tablet(s) PO daily 09/17/2015 10/04/2015 Inactive buspirone 15 mg tablet RxNorm: 266865 1 Tablet(s) PO BID 09/17/2015 09/10/2016 Inactive buspirone 15 mg tablet RxNorm: 024875 1 Tablet(s) PO BID 09/14/2015 09/16/2015 Inactive Topamax 25 mg tablet RxNorm: 367707 1 Tablet(s) PO QPM 09/03/2015 12/07/2015 Inactive cyanocobalamin (vit B-12) 1,000 mcg/mL injection solution RxNorm: 500132 1 Milliliter(s) Inj 09/03/2015 09/03/2015 Inactive cyanocobalamin (vit B-12) 1,000 mcg/mL injection solution RxNorm: 381073 Milliliter(s) Inj 08/17/2015 08/17/2015 Inactive cyanocobalamin (vit B-12) 1,000 mcg/mL injection solution RxNorm: 986742 Milliliter(s) Inj 08/06/2015 08/06/2015 Inactive levothyroxine 150 mcg tablet RxNorm: 548550 1 Tablet(s) PO daily 07/22/2015 03/03/2016 Inactive Aricept 10 mg tablet RxNorm: 887142 1 Tablet(s) PO daily 07/22/2015 05/26/2016 Inactive Mobic 15 mg tablet RxNorm: 931089 1 Tablet(s) PO daily 07/22/2015 05/26/2016 Inactive cyanocobalamin (vit B-12) 1,000 mcg/mL injection solution RxNorm: 307425 Milliliter(s) Inj 07/22/2015 07/22/2015 Inactive liothyronine 5 mcg tablet RxNorm: 305237 1 Tablet(s) PO BID 07/22/2015 09/16/2015 Inactive cyanocobalamin (vit B-12) 1,000 mcg/mL injection solution RxNorm: 297361 Milliliter(s) Inj 07/08/2015 07/08/2015 Inactive cyanocobalamin (vit B-12) 1,000 mcg/mL injection solution RxNorm: 636557 Milliliter(s) Inj 06/23/2015 06/23/2015 Inactive cyanocobalamin (vit B-12) 1,000 mcg/mL injection solution RxNorm: 837250 1 Milliliter(s) Inj 06/08/2015 06/08/2015 Inactive cyanocobalamin (vit B-12) 1,000 mcg/mL injection solution RxNorm: 401048 Milliliter(s) Inj 05/27/2015 05/27/2015 Inactive Aricept 10 mg tablet RxNorm: 608604 1 Tablet(s) PO daily 05/20/2015 07/21/2015 Inactive Zofran 4 mg tablet RxNorm: 829003 1 Tablet(s) PO daily as needed 05/20/2015 06/18/2015 Inactive alprazolam 0.25 mg tablet RxNorm: 203740 1 Tablet(s) PO BID 05/20/2015 10/12/2015 Inactive Mobic 15 mg tablet RxNorm: 225544 1 Tablet(s) PO daily 05/20/2015 07/21/2015 Inactive tramadol ER 100 mg tablet,extended release 24 hr RxNorm: 652599 1 Tablet(s) PO Q6 as needed 05/13/2015 No Stop Date Active cyanocobalamin (vit B-12) 1,000 mcg/mL injection solution RxNorm: 786209 1 Milliliter(s) Inj 05/12/2015 05/12/2015 Inactive Topamax 25 mg tablet RxNorm: 891712 1 Tablet(s) PO BID (start at one pill at bedtime x 1week then twice daily thereafter) 05/12/2015 09/02/2015 Inactive cyanocobalamin (vit B-12) 1,000 mcg/mL injection kit RxNorm: 169149 kit Inj 04/30/2015 04/30/2015 Inactive cyanocobalamin (vit B-12) 1,000 mcg/mL injection solution RxNorm: 471327 Milliliter(s) Inj 04/16/2015 04/16/2015 Inactive levothyroxine 150 mcg tablet RxNorm: 352761 1 Tablet(s) PO daily 04/08/2015 07/21/2015 Inactive cyanocobalamin (vit B-12) 1,000 mcg/mL injection solution RxNorm: 277321 Milliliter(s) 1 Milliliter(s) Inj [id number] 04/08/2015 04/10/2016 Inactive Cytomel 5 mcg tablet RxNorm: 940243 1 Tablet(s) PO BID 04/08/2015 10/12/2015 Inactive Cytomel 5 mcg tablet RxNorm: 675363 1 Tablet(s) PO BID 04/07/2015 04/07/2015 Inactive Cytomel 5 mcg tablet RxNorm: 676023 1 Tablet(s) PO BID 04/07/2015 04/06/2015 Inactive cyanocobalamin (vit B-12) 1,000 mcg/mL injection solution RxNorm: 279891 Milliliter(s) Inj 04/02/2015 04/02/2015 Inactive cyanocobalamin (vit B-12) 1,000 mcg/mL injection solution RxNorm: 008715 Milliliter(s) Inj 03/18/2015 03/18/2015 Inactive cyanocobalamin (vit B-12) 1,000 mcg/mL injection solution RxNorm: 578567 Milliliter(s) 1 Milliliter(s) Inj [id number] 03/18/2015 04/07/2015 Inactive cyanocobalamin (vit B-12) 1,000 mcg/mL injection solution RxNorm: 295152 1 Milliliter(s) Inj [id number] 03/16/2015 03/17/2015 Inactive cyanocobalamin (vit B-12) 1,000 mcg/mL injection solution RxNorm: 367418 Milliliter(s) Inj 03/03/2015 03/03/2015 Inactive cyanocobalamin (vit B-12) 1,000 mcg/mL injection solution RxNorm: 196189 Milliliter(s) Inj 02/18/2015 02/18/2015 Inactive cyanocobalamin (vit B-12) 1,000 mcg/mL injection solution RxNorm: 945227 Milliliter(s) Inj 02/04/2015 02/04/2015 Inactive cyanocobalamin (vit B-12) 1,000 mcg/mL injection solution RxNorm: 025532 Milliliter(s) Inj 01/22/2015 01/22/2015 Inactive Lac-Hydrin Five 5 % lotion RxNorm: 553184 1 TOP daily 01/13/2015 03/13/2015 Inactive Lac-Hydrin Five 5 % lotion RxNorm: 459694 1 TOP daily 01/13/2015 01/12/2015 Inactive cyanocobalamin (vit B-12) 1,000 mcg/mL injection solution RxNorm: 692716 Milliliter(s) Inj 01/08/2015 01/08/2015 Inactive cyanocobalamin (vit B-12) 1,000 mcg/mL injection solution RxNorm: 650048 Milliliter(s) Inj 12/25/2014 12/25/2014 Inactive levothyroxine 150 mcg tablet RxNorm: 087831 1 Tablet(s) PO daily 12/24/2014 04/07/2015 Inactive tramadol 50 mg tablet RxNorm: 412864 1-2 Tablet(s) PO Q6 as needed 12/17/2014 05/12/2015 Inactive alprazolam 0.25 mg tablet RxNorm: 554599 1 Tablet(s) PO BID 12/17/2014 04/15/2015 Inactive Pradaxa 150 mg capsule RxNorm: 9552296 1 Capsule(s) PO BID 12/16/2014 No Stop Date Active metoprolol tartrate 50 mg tablet RxNorm: 891268 1/2 Tablet(s) PO BID 12/16/2014 09/13/2016 Inactive buspirone 15 mg tablet RxNorm: 479538 1 Tablet(s) PO BID 12/16/2014 09/13/2015 Inactive cyanocobalamin (vit B-12) 1,000 mcg/mL injection solution RxNorm: 205399 1 Milliliter(s) Inj [id number] 12/16/2014 03/15/2015 Inactive cyanocobalamin (vit B-12) 1,000 mcg/mL injection solution RxNorm: 361750 1 Milliliter(s) Inj [id number] 12/16/2014 12/15/2014 Inactive sucralfate 1 gram tablet RxNorm: 840752 Tablet(s) PO QID 12/16/2014 12/10/2015 Inactive cyanocobalamin (vit B-12) 1,000 mcg/mL injection solution RxNorm: 367067 Milliliter(s) Inj 12/10/2014 12/10/2014 Inactive cyanocobalamin (vit B-12) 1,000 mcg/mL injection solution RxNorm: 966690 Milliliter(s) Inj 11/26/2014 11/26/2014 Inactive Zoloft 50 mg tablet RxNorm: 428312 1 Tablet(s) PO daily 11/24/2014 06/21/2015 Inactive Zoloft 50 mg tablet RxNorm: 258936 1 Tablet(s) PO daily 11/24/2014 11/23/2014 Inactive cyanocobalamin (vit B-12) 1,000 mcg/mL injection kit RxNorm: 137411 Milliliter(s) Inj 11/12/2014 11/12/2014 Inactive cyanocobalamin (vit B-12) 1,000 mcg/mL injection solution RxNorm: 707868 Milliliter(s) Inj 10/28/2014 10/28/2014 Inactive [SAVINGS FOR NON-COVERED DRUGS -- BIN:[id number], PCN: [id number], Group: [id number], ID# [id number], Questions: . THIS IS NOT INSURANCE.] promethazine oral RxNorm: 8745 oral No Start Date Active digoxin 125 mcg tablet RxNorm: 992868 Tablet(s) PO every other day No Start Date Active furosemide 40 mg tablet RxNorm: 818561 1 Tablet(s) PO daily No Start Date Active Vitamin D3 5,000 unit tablet RxNorm: 748719 1 Tablet(s) PO daily No Start Date Active erythromycin 250 mg capsule,delayed release RxNorm: 204068 1 Capsule(s) PO AC No Start Date Active Protonix 40 mg tablet,delayed release RxNorm: 173965 1 Tablet(s) PO BID No Start Date Active Cozaar 100 mg tablet RxNorm: 242623 1 Tablet(s) PO daily No Start Date 09/13/2016 Inactive sucralfate 1 gram tablet RxNorm: 310449 Tablet(s) PO QID No Start Date 12/15/2014 Inactive amiodarone 200 mg tablet RxNorm: 440654 2 Tablet(s) PO daily No Start Date 10/13/2015 Inactive buspirone 15 mg tablet RxNorm: 644519 1 Tablet(s) PO daily No Start Date 12/15/2014 Inactive potassium chloride ER 20 mEq tablet,extended release RxNorm: 524885 1 Tablet(s) PO daily No Start Date 10/12/2015 Inactive Prilosec 40 mg capsule,delayed release RxNorm: 805980 1 Capsule(s) PO daily No Start Date 09/02/2015 Inactive [place] 3 capsule RxNorm: Capsule(s) PO No Start Date 10/12/2015 Inactive alprazolam 0.25 mg tablet RxNorm: 363438 Tablet(s) PO QHS No Start Date 12/16/2014 Inactive levothyroxine 125 mcg tablet RxNorm: 022348 1 Tablet(s) PO daily No Start Date 12/23/2014 Inactive liothyronine 5 mcg tablet RxNorm: 647776 1 Tablet(s) PO BID No Start Date 07/21/2015 Inactive Mobic 15 mg tablet RxNorm: 823865 Tablet(s) PO daily No Start Date 05/19/2015 Inactive Norvasc 5 mg tablet RxNorm: 612595 1 Tablet(s) PO daily No Start Date 09/16/2015 Inactive Zofran 4 mg tablet RxNorm: 700628 1 Tablet(s) PO daily as needed No Start Date 05/19/2015 Inactive Tamiflu 75 mg capsule RxNorm: 902042 1 Capsule(s) PO BID No Start Date 07/23/2017 Inactive tramadol 50 mg tablet RxNorm: 703020 1 Tablet(s) PO daily as needed No Start Date 12/16/2014 Inactive amiodarone 200 mg tablet RxNorm: 730031 1 Tablet(s) PO daily No Start Date 10/12/2015 Inactive Zofran ODT 4 mg disintegrating tablet RxNorm: 556703 1 Tablet(s) PO TID as needed No Start Date 05/02/2017 Inactive albuterol sulfate 2.5 mg/3 mL (0.083 %) solution for nebulization RxNorm: 308015 3 Milliliter(s) INH Q6 PRN No Start Date 09/20/2017 Inactive meclizine 25 mg tablet RxNorm: 054937 Tablet(s) PO as needed No Start Date 05/24/2016 Inactive Pradaxa 150 mg capsule RxNorm: 6258228 1 Capsule(s) PO daily No Start Date 12/15/2014 Inactive metoprolol tartrate 50 mg tablet RxNorm: 013382 1/2 Tablet(s) PO No Start Date 12/15/2014 Inactive Aricept 10 mg tablet RxNorm: 462609 Tablet(s) PO daily No Start Date 05/19/2015 Inactive Calmoseptine 0.44 %-20.6 % topical ointment RxNorm: 597278 1 Application TOP BID and as needed to sore on buttocks No Start Date 09/06/2016 Inactive Zithromax Z-Henrique 250 mg tablet RxNorm: 415832 1 Tablet(s) PO UD No Start Date 11/09/2015 Inactive zpack x 1 Medication Administered Medication Codes Instructions Start Date Status cyanocobalamin (vit B-12) 1,000 mcg/mL injection solution RxNorm: 977118 Milliliter 06/20/2018 Active cyanocobalamin (vit B-12) 1,000 mcg/mL injection solution RxNorm: 842581 Milliliter 06/06/2018 No longer Active cyanocobalamin (vit B-12) 1,000 mcg/mL injection solution RxNorm: 880159 Milliliter 05/24/2018 No longer Active cyanocobalamin (vit B-12) 1,000 mcg/mL injection solution RxNorm: 972519 Milliliter 05/09/2018 No longer Active cyanocobalamin (vit B-12) 1,000 mcg/mL injection solution RxNorm: 393910 Milliliter 04/26/2018 No longer Active cyanocobalamin (vit B-12) 1,000 mcg/mL injection solution RxNorm: 161934 Milliliter 04/12/2018 No longer Active cyanocobalamin (vit B-12) 1,000 mcg/mL injection solution RxNorm: 969798 Milliliter 03/30/2018 No longer Active cyanocobalamin (vit B-12) 1,000 mcg/mL injection solution RxNorm: 817175 Milliliter 03/16/2018 No longer Active cyanocobalamin (vit B-12) 1,000 mcg/mL injection solution RxNorm: 776974 Milliliter 03/02/2018 No longer Active cyanocobalamin (vit B-12) 1,000 mcg/mL injection solution RxNorm: 712920 Milliliter 02/08/2018 No longer Active cyanocobalamin (vit B-12) 1,000 mcg/mL injection solution RxNorm: 153028 Milliliter 01/24/2018 No longer Active cyanocobalamin (vit B-12) 1,000 mcg/mL injection solution RxNorm: 293095 Milliliter 01/10/2018 No longer Active cyanocobalamin (vit B-12) 1,000 mcg/mL injection solution RxNorm: 935480 Milliliter 12/27/2017 No longer Active cyanocobalamin (vit B-12) 1,000 mcg/mL injection solution RxNorm: 101319 1Milliliter 12/12/2017 No longer Active cyanocobalamin (vit B-12) 1,000 mcg/mL injection solution RxNorm: 038287 Milliliter 12/01/2017 No longer Active cyanocobalamin (vit B-12) 1,000 mcg/mL injection solution RxNorm: 611023 1Milliliter 11/17/2017 No longer Active cyanocobalamin (vit B-12) 1,000 mcg/mL injection solution RxNorm: 036562 1Milliliter 11/02/2017 No longer Active cyanocobalamin (vit B-12) 1,000 mcg/mL injection solution RxNorm: 007112 1Milliliter 10/20/2017 No longer Active cyanocobalamin (vit B-12) 1,000 mcg/mL injection solution RxNorm: 480615 Milliliter 10/06/2017 No longer Active cyanocobalamin (vit B-12) 1,000 mcg/mL injection solution RxNorm: 516158 Milliliter 09/21/2017 No longer Active Kenalog 40 mg/mL suspension for injection RxNorm: 4731302 Milliliter 09/15/2017 No longer Active cyanocobalamin (vit B-12) 1,000 mcg/mL injection solution RxNorm: 369218 Milliliter 09/07/2017 No longer Active cyanocobalamin (vit B-12) 1,000 mcg/mL injection solution RxNorm: 660504 Milliliter 08/24/2017 No longer Active cyanocobalamin (vit B-12) 1,000 mcg/mL injection solution RxNorm: 960671 Milliliter 07/06/2017 No longer Active cyanocobalamin (vit B-12) 1,000 mcg/mL injection solution RxNorm: 846508 Milliliter 06/20/2017 No longer Active Kenalog 40 mg/mL suspension for injection RxNorm: 4001410 1Milliliter 06/20/2017 No longer Active cyanocobalamin (vit B-12) 1,000 mcg/mL injection solution RxNorm: 773655 Milliliter 06/05/2017 No longer Active cyanocobalamin (vit B-12) 1,000 mcg/mL injection solution RxNorm: 163123 Milliliter 05/25/2017 No longer Active cyanocobalamin (vit B-12) 1,000 mcg/mL injection solution RxNorm: 702461 Milliliter 05/16/2017 No longer Active cyanocobalamin (vit B-12) 1,000 mcg/mL injection solution RxNorm: 733557 1Milliliter 05/01/2017 No longer Active cyanocobalamin (vit B-12) 1,000 mcg/mL injection solution RxNorm: 907581 Milliliter 04/18/2017 No longer Active cyanocobalamin (vit B-12) 1,000 mcg/mL injection solution RxNorm: 731981 Milliliter 04/06/2017 No longer Active cyanocobalamin (vit B-12) 1,000 mcg/mL injection solution RxNorm: 602236 Milliliter 03/22/2017 No longer Active cyanocobalamin (vit B-12) 1,000 mcg/mL injection solution RxNorm: 746030 Milliliter 03/09/2017 No longer Active cyanocobalamin (vit B-12) 1,000 mcg/mL injection solution RxNorm: 187204 Milliliter 02/23/2017 No longer Active cyanocobalamin (vit B-12) 1,000 mcg/mL injection solution RxNorm: 107139 Milliliter 02/09/2017 No longer Active cyanocobalamin (vit B-12) 1,000 mcg/mL injection solution RxNorm: 452033 Milliliter 01/23/2017 No longer Active cyanocobalamin (vit B-12) 1,000 mcg/mL injection solution RxNorm: 764974 Milliliter 01/10/2017 No longer Active cyanocobalamin (vit B-12) 1,000 mcg/mL injection solution RxNorm: 583170 1Milliliter 12/28/2016 No longer Active cyanocobalamin (vit B-12) 1,000 mcg/mL injection solution RxNorm: 923480 Milliliter 12/14/2016 No longer Active cyanocobalamin (vit B-12) 1,000 mcg/mL injection solution RxNorm: 751648 Milliliter 11/24/2016 No longer Active cyanocobalamin (vit B-12) 1,000 mcg/mL injection solution RxNorm: 865552 1Milliliter 11/07/2016 No longer Active cyanocobalamin (vit B-12) 1,000 mcg/mL injection solution RxNorm: 377666 Milliliter 10/24/2016 No longer Active cyanocobalamin (vit B-12) 1,000 mcg/mL injection solution RxNorm: 200442 1Milliliter 09/29/2016 No longer Active cyanocobalamin (vit B-12) 1,000 mcg/mL injection solution RxNorm: 278692 Milliliter 08/29/2016 No longer Active cyanocobalamin (vit B-12) 1,000 mcg/mL injection solution RxNorm: 836835 Milliliter 08/04/2016 No longer Active cyanocobalamin (vit B-12) 1,000 mcg/mL injection solution RxNorm: 265582 Milliliter 07/21/2016 No longer Active cyanocobalamin (vit B-12) 1,000 mcg/mL injection solution RxNorm: 785125 1Milliliter 07/05/2016 No longer Active cyanocobalamin (vit B-12) 1,000 mcg/mL injection solution RxNorm: 316046 1Milliliter 06/22/2016 No longer Active cyanocobalamin (vit B-12) 1,000 mcg/mL injection solution RxNorm: 302402 Milliliter 06/09/2016 No longer Active cyanocobalamin (vit B-12) 1,000 mcg/mL injection solution RxNorm: 855770 1Milliliter 05/25/2016 No longer Active cyanocobalamin (vit B-12) 1,000 mcg/mL injection solution RxNorm: 482711 Milliliter 05/10/2016 No longer Active cyanocobalamin (vit B-12) 1,000 mcg/mL injection solution RxNorm: 899459 Milliliter 04/26/2016 No longer Active cyanocobalamin (vit B-12) 1,000 mcg/mL injection solution RxNorm: 345119 Milliliter 04/11/2016 No longer Active cyanocobalamin (vit B-12) 1,000 mcg/mL injection solution RxNorm: 929289 Milliliter 03/31/2016 No longer Active cyanocobalamin (vit B-12) 1,000 mcg/mL injection solution RxNorm: 818799 1Milliliter 03/15/2016 No longer Active cyanocobalamin (vit B-12) 1,000 mcg/mL injection solution RxNorm: 858504 Milliliter 02/25/2016 No longer Active cyanocobalamin (vit B-12) 1,000 mcg/mL injection solution RxNorm: 211177 1Milliliter 02/02/2016 No longer Active cyanocobalamin (vit B-12) 1,000 mcg/mL injection solution RxNorm: 381201 Milliliter 01/18/2016 No longer Active cyanocobalamin (vit B-12) 1,000 mcg/mL injection solution RxNorm: 069028 Milliliter 12/29/2015 No longer Active cyanocobalamin (vit B-12) 1,000 mcg/mL injection solution RxNorm: 560300 Milliliter 12/08/2015 No longer Active cyanocobalamin (vit B-12) 1,000 mcg/mL injection solution RxNorm: 509236 Milliliter 11/23/2015 No longer Active cyanocobalamin (vit B-12) 1,000 mcg/mL injection solution RxNorm: 956264 Milliliter 11/11/2015 No longer Active cyanocobalamin (vit B-12) 1,000 mcg/mL injection solution RxNorm: 902048 1Milliliter 10/29/2015 No longer Active cyanocobalamin (vit B-12) 1,000 mcg/mL injection solution RxNorm: 487005 1Milliliter 10/12/2015 No longer Active cyanocobalamin (vit B-12) 1,000 mcg/mL injection solution RxNorm: 000707 1Milliliter 09/29/2015 No longer Active cyanocobalamin (vit B-12) 1,000 mcg/mL injection solution RxNorm: 950447 1Milliliter 09/17/2015 No longer Active cyanocobalamin (vit B-12) 1,000 mcg/mL injection solution RxNorm: 206426 1Milliliter 09/03/2015 No longer Active cyanocobalamin (vit B-12) 1,000 mcg/mL injection solution RxNorm: 890785 Milliliter 08/17/2015 No longer Active cyanocobalamin (vit B-12) 1,000 mcg/mL injection solution RxNorm: 064801 Milliliter 08/06/2015 No longer Active cyanocobalamin (vit B-12) 1,000 mcg/mL injection solution RxNorm: 486454 Milliliter 07/22/2015 No longer Active cyanocobalamin (vit B-12) 1,000 mcg/mL injection solution RxNorm: 696984 Milliliter 07/08/2015 No longer Active cyanocobalamin (vit B-12) 1,000 mcg/mL injection solution RxNorm: 517089 Milliliter 06/23/2015 No longer Active cyanocobalamin (vit B-12) 1,000 mcg/mL injection solution RxNorm: 421390 1Milliliter 06/08/2015 No longer Active cyanocobalamin (vit B-12) 1,000 mcg/mL injection solution RxNorm: 955397 Milliliter 05/27/2015 No longer Active cyanocobalamin (vit B-12) 1,000 mcg/mL injection solution RxNorm: 739407 1Milliliter 05/12/2015 No longer Active cyanocobalamin (vit B-12) 1,000 mcg/mL injection kit RxNorm: 492415 kit 04/30/2015 No longer Active cyanocobalamin (vit B-12) 1,000 mcg/mL injection solution RxNorm: 843809 Milliliter 04/16/2015 No longer Active cyanocobalamin (vit B-12) 1,000 mcg/mL injection solution RxNorm: 811827 Milliliter 04/02/2015 No longer Active cyanocobalamin (vit B-12) 1,000 mcg/mL injection solution RxNorm: 960821 Milliliter 03/18/2015 No longer Active cyanocobalamin (vit B-12) 1,000 mcg/mL injection solution RxNorm: 867704 Milliliter 03/03/2015 No longer Active cyanocobalamin (vit B-12) 1,000 mcg/mL injection solution RxNorm: 649543 Milliliter 02/18/2015 No longer Active cyanocobalamin (vit B-12) 1,000 mcg/mL injection solution RxNorm: 826305 Milliliter 02/04/2015 No longer Active cyanocobalamin (vit B-12) 1,000 mcg/mL injection solution RxNorm: 028179 Milliliter 01/22/2015 No longer Active cyanocobalamin (vit B-12) 1,000 mcg/mL injection solution RxNorm: 153571 Milliliter 01/08/2015 No longer Active cyanocobalamin (vit B-12) 1,000 mcg/mL injection solution RxNorm: 371450 Milliliter 12/25/2014 No longer Active cyanocobalamin (vit B-12) 1,000 mcg/mL injection solution RxNorm: 567421 Milliliter 12/10/2014 No longer Active cyanocobalamin (vit B-12) 1,000 mcg/mL injection solution RxNorm: 472430 Milliliter 11/26/2014 No longer Active cyanocobalamin (vit B-12) 1,000 mcg/mL injection kit RxNorm: 937698 Milliliter 11/12/2014 No longer Active cyanocobalamin (vit B-12) 1,000 mcg/mL injection solution RxNorm: 238440 Milliliter 10/28/2014 No longer Active Immunizations Vaccine [...] (3rd IS) 3.20 uIU/mL 02/26/2018 Free T4 Ygk644 FREE T4 0.99 ng/dL 02/26/2018 Cbc With [...] 28.5 pg 02/26/2018 Cbc With Differential Ord2 [place]% 10.3 % 02/26/2018 Cbc With Differential Ord2 [...] 1.80 K/ul 02/26/2018 Cbc With Differential Ord2 [place] ABS# 0.7 K/ul 02/26/2018 Cbc With Differential Ord2 Eos ABS# 0.2 K/ul 02/26/2018 Cbc With Differential Ord2 Baso ABS# 0.0 K/ul 02/26/2018 B12 Xqo809 B12 889.00 pg/ml 02/26/2018 Digoxin Ord9 DIGOXIN 0.7 NG/ML 11/23/2017 Comp Metabolic Fsn899 NA 142 mEq/L 11/23/2017 Comp Metabolic Vpm171 K 4.9 mEq/L 11/23/2017 Comp Metabolic Qtq209 CL 112 mEq/L 11/23/2017 Comp Metabolic Wih724 CO2 18.0 mEq/L 11/23/2017 Comp Metabolic Uip633 ANION GAP 17 11/23/2017 Comp Metabolic Jyd964 GLUCOSE 123 mg/dL 11/23/2017 Comp Metabolic Fpk044 Creat 1.0 mg/dL 11/23/2017 Comp Metabolic Stj454 eGFR 59 ml/min/1.73m2 11/23/2017 Comp Metabolic Tog052 BUN 24 mg/dL 11/23/2017 Comp Metabolic Yla019 B/C Ratio 25.0 Ratio 11/23/2017 Comp Metabolic Gwa810 CALCIUM 9.4 mg/dL 11/23/2017 Comp Metabolic Mfd150 ALK PHOS 56 U/L 11/23/2017 Comp Metabolic Eck465 AST(SGOT) 17 U/L 11/23/2017 Comp Metabolic Vpp325 ALT(SGPT) 16 U/L 11/23/2017 Comp Metabolic Bmi857 BILI T 0.7 mg/dL 11/23/2017 Comp Metabolic Ymg041 ALBUMIN 3.8 g/dL 11/23/2017 Comp Metabolic Dcx271 TPRO 6.2 g/dL 11/23/2017 Comp Metabolic Pfw670 GLOB 2.4 g/dL 11/23/2017 Comp Metabolic Aon623 A/G Ratio 1.6 Ratio 11/23/2017 Comp Metabolic Iul034 Osmo 289 mOsmo 11/23/2017 Free T4 Uir557 FREE T4 1.04 ng/dL 11/23/2017 %Hba1C Yrv109 % HbA1c 54405- 6 6.4 % 11/23/2017 %Hba1C Bdu064 Gluc Ave 137 mg/dL 11/23/2017 Lipid Ord30 CHOL 179 mg/dL 11/23/2017 Lipid Ord30 HDL 51.0 mg/dl 11/23/2017 Lipid Ord30 TRIG 134 mg/dL 11/23/2017 Lipid Ord30 LDL 101 mg/dL 11/23/2017 Lipid Ord30 C/HDL 3.5 Ratio 11/23/2017 Tsh Ord6 TSH (3rd IS) 1.00 uIU/mL 11/23/2017 Microalbumin Umw545 MicroAlb <0.7 mg/dL 11/23/2017 Comp Metabolic Bpc664 NA 141 mEq/L 01/23/2017 Comp Metabolic Ysi674 K 4.5 mEq/L 01/23/2017 Comp Metabolic Atc177 CL 107 mEq/L 01/23/2017 Comp Metabolic Jgf741 CO2 21.0 mEq/L 01/23/2017 Comp Metabolic Euk506 ANION GAP 18 01/23/2017 Comp Metabolic Vak165 GLUCOSE 138 mg/dL 01/23/2017 Comp Metabolic Iys887 Creat 1.0 mg/dL 01/23/2017 Comp Metabolic Qqo487 eGFR 56 ml/min/1.73m2 01/23/2017 Comp Metabolic Oeq057 BUN 26 mg/dL 01/23/2017 Comp Metabolic Wso179 B/C Ratio 25.7 Ratio 01/23/2017 Comp Metabolic Eww783 CALCIUM 9.0 mg/dL 01/23/2017 Comp Metabolic Krm882 ALK PHOS 37 U/L 01/23/2017 Comp Metabolic Itl337 AST(SGOT) 20 U/L 01/23/2017 Comp Metabolic Eca748 ALT(SGPT) 25 U/L 01/23/2017 Comp Metabolic Ziv791 BILI T 0.9 mg/dL 01/23/2017 Comp Metabolic Ljm297 ALBUMIN 3.8 g/dL 01/23/2017 Comp Metabolic Ywx441 TPRO 6.5 g/dL 01/23/2017 Comp Metabolic Uvk905 GLOB 2.7 g/dL 01/23/2017 Comp Metabolic Dmt024 A/G Ratio 1.4 Ratio 01/23/2017 Comp Metabolic Brz166 Osmo 288 mOsmo 01/23/2017 Free T4 Biu810 FREE T4 1.05 ng/dL 01/23/2017 %Hba1C Eoa729 % HbA1c 91828- 6 6.1 % 01/23/2017 %Hba1C Uag059 Gluc Ave 128 mg/dL 01/23/2017 Tsh Ord6 hTSH II 1.68 uIU/mL 01/23/2017 Culture Urine [id number] URINE CULTURE SEE NOTES 11/10/2016 Culture Urine [id number] Continued Results 11/10/2016 Urine Culture Ucult Complete [...] Ord15 CALCIUM 9.3 mg/dL 09/29/2016 Free T4 Snl189 FREE T4 0.99 ng/dL 09/07/2016 Cbc With [...] 30.0 pg 09/07/2016 Cbc With Differential Ord2 [place]% 9.8 % 09/07/2016 Cbc With Differential Ord2 [...] 1.75 K/ul 09/07/2016 Cbc With Differential Ord2 [place] ABS# 0.6 K/ul 09/07/2016 Cbc With Differential Ord2 Eos ABS# 0.1 K/ul 09/07/2016 Cbc With Differential Ord2 Baso ABS# 0.0 K/ul 09/07/2016 Tsh Ord6 hTSH II 1.41 uIU/mL 09/07/2016 Culture Urine [id number] URINE CULTURE SEE NOTES 06/27/2016 Lipid Ord30 CHOL 196 mg/dL 06/22/2016 Lipid Ord30 HDL 63.0 mg/dl 06/22/2016 Lipid Ord30 TRIG 154 mg/dL 06/22/2016 Lipid Ord30 LDL 102 mg/dL 06/22/2016 Lipid Ord30 C/HDL 3.1 Ratio 06/22/2016 Hepatic Ogb131 ALBUMIN 4.2 g/dL 06/22/2016 Hepatic Uoj815 TPRO 7.0 g/dL 06/22/2016 Hepatic Wte746 GLOB 2.8 g/dL 06/22/2016 Hepatic Jjn260 A/G Ratio 1.5 Ratio 06/22/2016 Hepatic Exm906 ALK PHOS 54 U/L 06/22/2016 Hepatic Evy936 ALT(SGPT) 30 U/L 06/22/2016 Hepatic Enk559 AST(SGOT) 24 U/L 06/22/2016 Hepatic Nrx706 BILI T 1.1 mg/dL 06/22/2016 Hepatic Qvs950 BILI D 0.2 mg/dL 06/22/2016 Hepatic Psi759 BILI I 0.9 mg/dL 06/22/2016 Comp Metabolic Ayk339 NA 139 mEq/L 06/14/2016 Comp Metabolic Jor594 K 4.6 mEq/L 06/14/2016 Comp Metabolic Gsj749 CL 108 mEq/L 06/14/2016 Comp Metabolic Vpw731 CO2 22.0 mEq/L 06/14/2016 Comp Metabolic Rqw067 ANION GAP 14 06/14/2016 Comp Metabolic Wdv870 GLUCOSE 114 mg/dL 06/14/2016 Comp Metabolic Zkk849 Creat 1.2 mg/dL 06/14/2016 Comp Metabolic Ccv303 eGFR 48 ml/min/1.73m2 06/14/2016 Comp Metabolic Mnu448 BUN 24 mg/dL 06/14/2016 Comp Metabolic Jgv154 B/C Ratio 20.9 Ratio 06/14/2016 Comp Metabolic Eqp683 CALCIUM 9.9 mg/dL 06/14/2016 Comp Metabolic Wed542 ALK PHOS 47 U/L 06/14/2016 Comp Metabolic Gnn900 AST(SGOT) 28 U/L 06/14/2016 Comp Metabolic Raw091 ALT(SGPT) 32 U/L 06/14/2016 Comp Metabolic Prl398 BILI T 0.9 mg/dL 06/14/2016 Comp Metabolic Oit615 ALBUMIN 4.1 g/dL 06/14/2016 Comp Metabolic Imk368 TPRO 6.9 g/dL 06/14/2016 Comp Metabolic Xgz004 GLOB 2.8 g/dL 06/14/2016 Comp Metabolic Gxt497 A/G Ratio 1.5 Ratio 06/14/2016 Comp Metabolic Jje546 Osmo 282 mOsmo 06/14/2016 Tsh Ord6 hTSH II 1.26 uIU/mL 06/14/2016 Free T4 Wev193 FREE T4 1.09 ng/dL 06/14/2016 Tsh Ord6 hTSH II 0.28 uIU/mL 02/02/2016 Digoxin Ord9 DIGOXIN 0.7 NG/ML 02/02/2016 Free T4 Wnw237 FREE T4 1.23 ng/dL 02/02/2016 Hepatic Hwf303 ALBUMIN 4.0 g/dL 02/02/2016 Hepatic Pbg381 TPRO 7.0 g/dL 02/02/2016 Hepatic Yfl844 GLOB 3.0 g/dL 02/02/2016 Hepatic Sea651 A/G Ratio 1.3 Ratio 02/02/2016 Hepatic Jvs778 ALK PHOS 57 U/L 02/02/2016 Hepatic Mva480 ALT(SGPT) 62 U/L 02/02/2016 Hepatic Wjd338 AST(SGOT) 54 U/L 02/02/2016 Hepatic Gyi041 BILI T 0.8 mg/dL 02/02/2016 Hepatic Lns207 BILI D 0.2 mg/dL 02/02/2016 Hepatic Jqj765 BILI I 0.6 mg/dL 02/02/2016 Urine Culture Ucult Preliminary No Growth Day 1 11/25/2015 Urine Culture Ucult Complete No Growth Day 2 11/25/2015 Hepatic Wuf430 ALBUMIN 3.9 g/dL 11/11/2015 Hepatic Cyr522 TPRO 7.0 g/dL 11/11/2015 Hepatic Wxl302 GLOB 3.1 g/dL 11/11/2015 Hepatic Voy106 A/G Ratio 1.3 Ratio 11/11/2015 Hepatic Bro610 ALK PHOS 63 U/L 11/11/2015 Hepatic Smp659 ALT(SGPT) 107 U/L 11/11/2015 Hepatic Tne452 AST(SGOT) 101 U/L 11/11/2015 Hepatic Baj499 BILI T 0.6 mg/dL 11/11/2015 Hepatic Tzb339 BILI D 0.1 mg/dL 11/11/2015 Hepatic Nfq738 BILI I 0.5 mg/dL 11/11/2015 Comp Metabolic Jbh257 NA 138 mEq/L 10/29/2015 Comp Metabolic Zzr480 K 5.0 mEq/L 10/29/2015 Comp Metabolic Bug437 CL 105 mEq/L 10/29/2015 Comp Metabolic Bfd209 CO2 23.0 mEq/L 10/29/2015 Comp Metabolic Sgw747 ANION GAP 15 10/29/2015 Comp Metabolic Naz556 GLUCOSE 105 mg/dL 10/29/2015 Comp Metabolic Syp880 Creat 1.0 mg/dL 10/29/2015 Comp Metabolic Krb224 eGFR 55 ml/min/1.73m2 10/29/2015 Comp Metabolic Yxp326 BUN 20 mg/dL 10/29/2015 Comp Metabolic Szx481 B/C Ratio 19.4 Ratio 10/29/2015 Comp Metabolic Rxv934 CALCIUM 8.8 mg/dL 10/29/2015 Comp Metabolic Ovb210 ALK PHOS 56 U/L 10/29/2015 Comp Metabolic Wwq983 AST(SGOT) 66 U/L 10/29/2015 Comp Metabolic Ulg845 ALT(SGPT) 78 U/L 10/29/2015 Comp Metabolic Pwv829 BILI T 0.7 mg/dL 10/29/2015 Comp Metabolic Mwe949 ALBUMIN 3.6 g/dL 10/29/2015 Comp Metabolic Dvt700 TPRO 6.6 g/dL 10/29/2015 Comp Metabolic Zbw983 GLOB 3.0 g/dL 10/29/2015 Comp Metabolic Luk838 A/G Ratio 1.2 Ratio 10/29/2015 Comp Metabolic Hkf863 Osmo 279 mOsmo 10/29/2015 Comp Metabolic Jru560 NA 136 mEq/L 09/03/2015 Comp Metabolic Dgz294 K 4.4 mEq/L 09/03/2015 Comp Metabolic Qfy136 CL 103 mEq/L 09/03/2015 Comp Metabolic Qpl658 CO2 24.0 mEq/L 09/03/2015 Comp Metabolic Twi599 ANION GAP 13 09/03/2015 Comp Metabolic Byq322 GLUCOSE 87 mg/dL 09/03/2015 Comp Metabolic Efg689 Creat 1.1 mg/dL 09/03/2015 Comp Metabolic Eht079 eGFR 53 ml/min/1.73m2 09/03/2015 Comp Metabolic Gtn277 BUN 17 mg/dL 09/03/2015 Comp Metabolic Ayp487 B/C Ratio 16.2 Ratio 09/03/2015 Comp Metabolic Ayt144 CALCIUM 9.0 mg/dL 09/03/2015 Comp Metabolic Mdm057 ALK PHOS 55 U/L 09/03/2015 Comp Metabolic Mbn165 AST(SGOT) 83 U/L 09/03/2015 Comp Metabolic Cus305 ALT(SGPT) 126 U/L 09/03/2015 Comp Metabolic Ufh101 BILI T 0.9 mg/dL 09/03/2015 Comp Metabolic Qlz595 ALBUMIN 3.9 g/dL 09/03/2015 Comp Metabolic Iqk255 TPRO 6.8 g/dL 09/03/2015 Comp Metabolic Uvl835 GLOB 2.9 g/dL 09/03/2015 Comp Metabolic Aip754 A/G Ratio 1.4 Ratio 09/03/2015 Comp Metabolic Xus839 Osmo 273 mOsmo 09/03/2015 Total T3 Ord42 TT3 0.6 ng/ml 07/09/2015 Tsh Ord6 hTSH II 1.62 uIU/mL 07/09/2015 Total T3 Ord42 TT3 0.5 ng/ml 04/02/2015 Free T4 Vuh600 FREE T4 1.23 ng/dL 04/02/2015 Tsh Ord6 [...] Procedure Codes Date THER/PROPH/DIAG INJ SC/IM CPT-4: 47727 06/20/2018 THER/PROPH/DIAG INJ SC/IM CPT-4: 91884 06/06/2018 VITAMIN B12 INJECTION CPT- 4: J3420 06/06/2018 THER/PROPH/DIAG INJ SC/IM CPT-4: 38371 05/24/2018 THER/PROPH/DIAG INJ SC/IM CPT-4: 00108 05/09/2018 THER/PROPH/DIAG INJ SC/IM CPT-4: 90089 04/26/2018 VITAMIN B12 INJECTION CPT- 4: J3420 04/26/2018 THER/PROPH/DIAG INJ SC/IM CPT-4: 49666 04/12/2018 THER/PROPH/DIAG INJ SC/IM CPT-4: 57038 03/30/2018 THER/PROPH/DIAG INJ SC/IM CPT-4: 03148 03/16/2018 VITAMIN B12 INJECTION CPT- 4: J3420 03/16/2018 ADMIN INFLUENZA VIRUS VAC CPT-4: G0008 03/16/2018 FLU VACC PRSV FREE INC ANTIG Formatting Model/CDA Sections, Assigned to/Nga Ojeda CPT-4: 10770Mcezsnj 03/16/2018 THER/PROPH/DIAG INJ SC/IM CPT-4: 42909 03/02/2018 THER/PROPH/DIAG INJ SC/IM CPT-4: 36003 02/08/2018 THER/PROPH/DIAG INJ SC/IM CPT-4: 02120 01/24/2018 THER/PROPH/DIAG INJ SC/IM CPT-4: 06142 01/10/2018 THER/PROPH/DIAG INJ SC/IM CPT-4: 56042 12/27/2017 VITAMIN B12 INJECTION CPT- 4: J3420 12/27/2017 THER/PROPH/DIAG INJ SC/IM CPT-4: 48771 12/12/2017 THER/PROPH/DIAG INJ SC/IM CPT-4: 67425 12/01/2017 VITAMIN B12 INJECTION CPT- 4: J3420 12/01/2017 THER/PROPH/DIAG INJ SC/IM CPT-4: 22001 11/17/2017 THER/PROPH/DIAG INJ SC/IM CPT-4: 58246 11/02/2017 THER/PROPH/DIAG INJ SC/IM CPT-4: 38996 10/20/2017 THER/PROPH/DIAG INJ SC/IM CPT-4: 05652 10/06/2017 THER/PROPH/DIAG INJ SC/IM CPT-4: 90992 09/21/2017 TRIAMCINOLONE ACET INJ NOS CPT-4: J3301 09/15/2017 THER/PROPH/DIAG INJ SC/IM CPT-4: 82079 09/07/2017 THER/PROPH/DIAG INJ SC/IM CPT-4: 54206 08/24/2017 THER/PROPH/DIAG INJ SC/IM CPT-4: 67326 07/06/2017 THER/PROPH/DIAG INJ SC/IM CPT-4: 23255 06/20/2017 TRIAMCINOLONE ACET INJ NOS CPT-4: J3301 06/20/2017 PPPS, SUBSEQ VISIT CPT- 4: G0439 06/05/2017 THER/PROPH/DIAG INJ SC/IM CPT-4: 08973 06/05/2017 THER/PROPH/DIAG INJ SC/IM CPT-4: 47697 05/25/2017 VITAMIN B12 INJECTION CPT- 4: J3420 05/25/2017 THER/PROPH/DIAG INJ SC/IM CPT-4: 40276 05/16/2017 THER/PROPH/DIAG INJ SC/IM CPT-4: 02754 05/01/2017 THER/PROPH/DIAG INJ SC/IM CPT-4: 83672 04/18/2017 THER/PROPH/DIAG INJ SC/IM CPT-4: 22954 04/06/2017 ADMIN INFLUENZA VIRUS VAC CPT-4: G0008 03/22/2017 FLU VACC PRSV FREE INC ANTIG CPT-4: 49097 03/22/2017 THER/PROPH/DIAG INJ SC/IM CPT-4: 90259 03/09/2017 THER/PROPH/DIAG INJ SC/IM CPT-4: 56135 02/23/2017 THER/PROPH/DIAG INJ SC/IM CPT-4: 65474 02/09/2017 THER/PROPH/DIAG INJ SC/IM CPT-4: 06259 01/23/2017 THER/PROPH/DIAG INJ SC/IM CPT-4: 90162 01/10/2017 THER/PROPH/DIAG INJ SC/IM CPT-4: 07735 12/28/2016 THER/PROPH/DIAG INJ SC/IM CPT-4: 88693 12/14/2016 THER/PROPH/DIAG INJ SC/IM CPT-4: 21431 11/24/2016 URINALYSIS NONAUTO W/O SCOPE CPT-4: 76785 11/07/2016 THER/PROPH/DIAG INJ SC/IM CPT-4: 43575 11/07/2016 THER/PROPH/DIAG INJ SC/IM CPT-4: 35042 10/24/2016 THER/PROPH/DIAG INJ SC/IM CPT-4: 02491 09/29/2016 THER/PROPH/DIAG INJ SC/IM CPT-4: 74855 08/29/2016 THER/PROPH/DIAG INJ SC/IM CPT-4: 84874 08/04/2016 THER/PROPH/DIAG INJ SC/IM CPT-4: 98095 07/21/2016 THER/PROPH/DIAG INJ SC/IM CPT-4: 73010 07/05/2016 THER/PROPH/DIAG INJ SC/IM CPT-4: 97261 06/22/2016 URINALYSIS NONAUTO W/O SCOPE CPT-4: 06246 06/22/2016 THER/PROPH/DIAG INJ SC/IM CPT-4: 57642 06/09/2016 PPPS, SUBSEQ VISIT CPT- 4: G0439 05/30/2016 ADMIN PNEUMOCOCCAL VACCINE SNOMED CT: 24110928 CPT-4: G0009 05/25/2016 Pneumococcal Polysaccharide Vaccine, 23-Valent, Ad CPT-4: 52122 05/25/2016 THER/PROPH/DIAG INJ SC/IM CPT-4: 59402 05/25/2016 THER/PROPH/DIAG INJ SC/IM CPT-4: 95296 05/10/2016 TRIAMCINOLONE ACET INJ NOS CPT-4: J3301 04/26/2016 VITAMIN B12 INJECTION CPT- 4: J3420 04/26/2016 THER/PROPH/DIAG INJ SC/IM CPT-4: 49353 04/11/2016 THER/PROPH/DIAG INJ SC/IM CPT-4: 89610 03/31/2016 ADMIN INFLUENZA VIRUS VAC CPT-4: G0008 03/15/2016 FLU VACC 4 STEPHANIE 3 YRS PLUS IM SNOMED CT: 29093887 CPT-4: 16856 03/15/2016 THER/PROPH/DIAG INJ SC/IM CPT-4: 05654 02/25/2016 THER/PROPH/DIAG INJ SC/IM CPT-4: 19152 02/02/2016 THER/PROPH/DIAG INJ SC/IM CPT-4: 31750 01/18/2016 VITAMIN B12 INJECTION CPT- 4: J3420 12/29/2015 THER/PROPH/DIAG INJ SC/IM CPT-4: 16533 12/29/2015 THER/PROPH/DIAG INJ SC/IM CPT-4: 46571 12/08/2015 THER/PROPH/DIAG INJ SC/IM CPT-4: 28457 11/23/2015 URINALYSIS NONAUTO W/O SCOPE CPT-4: 52899 11/23/2015 THER/PROPH/DIAG INJ SC/IM CPT-4: 24113 11/11/2015 THER/PROPH/DIAG INJ SC/IM CPT-4: 89451 10/29/2015 THER/PROPH/DIAG INJ SC/IM CPT-4: 61254 10/12/2015 VITAMIN B12 INJECTION CPT- 4: J3420 10/12/2015 THER/PROPH/DIAG INJ SC/IM CPT-4: 78066 09/29/2015 THER/PROPH/DIAG INJ SC/IM CPT-4: 90832 09/17/2015 THER/PROPH/DIAG INJ SC/IM CPT-4: 92592 09/03/2015 THER/PROPH/DIAG INJ SC/IM CPT-4: 32810 08/17/2015 THER/PROPH/DIAG INJ SC/IM CPT-4: 97441 08/06/2015 THER/PROPH/DIAG INJ SC/IM CPT-4: 18615 07/22/2015 THER/PROPH/DIAG INJ SC/IM CPT-4: 36831 07/08/2015 THER/PROPH/DIAG INJ SC/IM CPT-4: 98483 06/23/2015 THER/PROPH/DIAG INJ SC/IM CPT-4: 67884 06/08/2015 THER/PROPH/DIAG INJ SC/IM CPT-4: 97374 05/27/2015 DESTRUCT PREMALG LESION CPT-4: 50217 05/19/2015 DESTRUCT PREMALG LES 2-14 CPT-4: 75164 05/19/2015 THER/PROPH/DIAG INJ SC/IM CPT-4: 94481 05/12/2015 VITAMIN B12 INJECTION CPT- 4: J3420 05/12/2015 THER/PROPH/DIAG INJ SC/IM CPT-4: 64407 04/30/2015 VITAMIN B12 INJECTION CPT- 4: J3420 04/30/2015 THER/PROPH/DIAG INJ SC/IM CPT-4: 93377 04/16/2015 THER/PROPH/DIAG INJ SC/IM CPT-4: 69796 04/02/2015 VITAMIN B12 INJECTION CPT- 4: J3420 04/02/2015 THER/PROPH/DIAG INJ SC/IM CPT-4: 62119 03/18/2015 THER/PROPH/DIAG INJ SC/IM CPT-4: 15949 03/03/2015 THER/PROPH/DIAG INJ SC/IM CPT-4: 36022 02/18/2015 THER/PROPH/DIAG INJ SC/IM CPT-4: 97781 02/04/2015 VITAMIN B12 INJECTION CPT- 4: J3420 02/04/2015 THER/PROPH/DIAG INJ SC/IM CPT-4: 71366 01/22/2015 THER/PROPH/DIAG INJ SC/IM CPT-4: 44069 01/08/2015 VITAMIN B12 INJECTION CPT- 4: J3420 01/08/2015 THER/PROPH/DIAG INJ SC/IM CPT-4: 01090 12/25/2014 VITAMIN B12 INJECTION CPT- 4: J3420 12/25/2014 THER/PROPH/DIAG INJ SC/IM CPT-4: 95247 12/10/2014 VITAMIN B12 INJECTION CPT- 4: J3420 12/10/2014 THER/PROPH/DIAG INJ SC/IM CPT-4: 90195 11/26/2014 VITAMIN B12 INJECTION CPT- 4: J3420 11/26/2014 THER/PROPH/DIAG INJ SC/IM CPT-4: 92082 11/12/2014 VITAMIN B12 INJECTION CPT- 4: J3420 11/12/2014 THER/PROPH/DIAG INJ SC/IM CPT-4: 45642 10/28/2014 Vital Signs Date Vital 05/03/2018 Blood Pressure 1: 140/70 Code: 8480-6 BMI: 26.0 Code: 24722-4 Heart Rate 1: 70 bpm Height: 5'6" SpO2: 94% Weight: 161 lbs 04/26/2018 Height: 5'6" 02/26/2018 Blood Pressure 1: 130/72 Code: 8480-6 BMI: 27.9 Code: 81333-2 Heart Rate 1: 72 bpm Height: 5'6" SpO2: 93% Weight: 173 lbs 12/12/2017 Blood Pressure 1: 126/74 Code: 8480-6 BMI: 27.4 Code: 06100-8 Heart Rate 1: 83 bpm Height: 5'6" SpO2: 98% Weight: 170 lbs 12/04/2017 Blood Pressure 1: 104/68 Code: 8480-6 BMI: 28.2 Code: 69894-5 Heart Rate 1: 85 bpm Height: 5'6" SpO2: 95% Weight: 175 lbs 11/20/2017 Blood Pressure 1: 130/68 Code: 8480-6 BMI: 28.4 Code: 22219-8 Heart Rate 1: 80 bpm Height: 5'6" SpO2: 99% Weight: 176 lbs 11/02/2017 Height: 5'6" 09/15/2017 Blood Pressure 1: 134/74 Code: 8480-6 BMI: 28.4 Code: 37241-2 Heart Rate 1: 88 bpm Height: 5'6" SpO2: 98% Weight: 176 lbs 09/07/2017 Blood Pressure 1: 124/64 Code: 8480-6 Heart Rate 1: 90 bpm Height: SpO2: 97% Weight: 08/30/2017 Blood Pressure 1: 140/76 Code: 8480-6 BMI: 28.4 Code: 41786-8 Heart Rate 1: 90 bpm Height: 5'6" SpO2: 94% Weight: 176 lbs 07/06/2017 Blood Pressure 1: 132/66 Code: 8480-6 BMI: 29.4 Code: 79643-8 Heart Rate 1: 85 bpm Height: 5'6" SpO2: 97% Weight: 182 lbs 06/20/2017 Blood Pressure 1: 134/86 Code: 8480-6 Heart Rate 1: 90 bpm Height: SpO2: 98% Weight: 06/05/2017 BMI: 29.1 Code: 93967-7 Height: 5'6" Weight: 180 lbs 05/25/2017 Blood Pressure 1: 126/76 Code: 8480-6 BMI: 29.1 Code: 39449-0 Heart Rate 1: 77 bpm Height: 5'6" SpO2: 97% Weight: 180 lbs 03/23/2017 Blood Pressure 1: 142/84 Code: 8480-6 BMI: 29.1 Code: 55809-2 Heart Rate 1: 91 bpm Height: 5'6" SpO2: 97% Weight: 180 lbs 01/23/2017 Blood Pressure 1: 150/90 Code: 8480-6 BMI: 29.9 Code: 27080-0 Heart Rate 1: 81 bpm Height: 5'6" SpO2: 97% Weight: 185 lbs 11/02/2016 Blood Pressure 1: 148/78 Code: 8480-6 BMI: 29.7 Code: 01013-0 Heart Rate 1: 87 bpm Height: 5'6" SpO2: 97% Weight: 184 lbs 09/29/2016 Blood Pressure 1: 128/78 Code: 8480-6 BMI: 29.7 Code: 76757-4 Heart Rate 1: 78 bpm Height: 5'6" SpO2: 98% Weight: 184 lbs 07/26/2016 Blood Pressure 1: 138/72 Code: 8480-6 BMI: 30.0 Code: 89940-4 Heart Rate 1: 85 bpm Height: 5'6" SpO2: 97% Weight: 186 lbs 05/30/2016 Blood Pressure 1: 132/76 Code: 8480-6 BMI: 30.0 Code: 75419-3 Heart Rate 1: 80 bpm Height: 5'6" SpO2: 98% Waist Measure (cm): 99 cm Weight: 186 lbs 05/25/2016 Blood Pressure 1: 13276 Code: 8480-6 BMI: 30.0 Code: 40750-6 Heart Rate 1: 80 bpm Height: 5'6" SpO2: 96% Weight: 186 lbs 02/25/2016 Blood Pressure 1: 110/64 Code: 8480-6 Heart Rate 1: 82 bpm Height: SpO2: 96% Weight: 01/25/2016 Blood Pressure 1: 118/70 Code: 8480-6 BMI: 30.0 Code: 54373-1 Heart Rate 1: 78 bpm Height: 5'6" SpO2: 97% Weight: 186 lbs 11/11/2015 Blood Pressure 1: 128/82 Code: 8480-6 BMI: 29.2 Code: 33709-6 Heart Rate 1: 86 bpm Height: 5'6" SpO2: 96% Temperature: 36.4 (C) / 97.6 (F) Weight: 181 lbs 10/12/2015 Blood Pressure 1: 118/70 Code: 8480-6 BMI: 29.2 Code: 54777-4 Heart Rate 1: 81 bpm Height: 5'6" SpO2: 95% Weight: 181 lbs 09/03/2015 Blood Pressure 1: 138/78 Code: 8480-6 BMI: 29.9 Code: 58586-7 Heart Rate 1: 88 bpm Height: 5'6" SpO2: 97% Weight: 185 lbs 05/19/2015 Blood Pressure 1: 146/78 Code: 8480-6 BMI: 30.0 Code: 67353-2 Heart Rate 1: 66 bpm Height: 5'6" SpO2: 97% Weight: 186 lbs 05/12/2015 Blood Pressure 1: 120/70 Code: 8480-6 BMI: 29.9 Code: 39679-6 Heart Rate 1: 89 bpm Height: 5'6" SpO2: 95% Weight: 185 lbs 01/13/2015 Blood Pressure 1: 140/90 Code: 8480-6 BMI: 30.3 Code: 05254-5 Heart Rate 1: 84 bpm Height: 5'6" SpO2: 95% Weight: 188 lbs 12/16/2014 Blood Pressure 1: 140/82 Code: 8480-6 BMI: 29.5 Code: 62450-5 Heart Rate 1: 86 bpm Height: 5'6" [...] Annual Medicare Wellness Exam Handling Stress usually rbyan effectively 05/30/2016 None Annual Medicare Wellness Exam [...] data Encounters Encounter Performer Location Codes Date ([id number]) 23551 EST. PATIENT, LEVEL IV Diagnosis: Essential (primary) hypertension[ICD10: I10] Diagnosis: Type 2 diabetes mellitus without complications[ICD10: E11.9] [facility] CPT-4: 74746 05/03/2018 ([id number]) 01170 EST. PATIENT, LEVEL III Diagnosis: Pain in left shoulder[ICD10: M25.512] Diagnosis: Pain in right shoulder[ICD10: M25.511] [facility] CPT-4: 98467 02/26/2018 ([id number]) 53124 EST. PATIENT, LEVEL III Diagnosis: Nausea[ICD10: R11.0] Diagnosis: Cough[ICD10: R05] Diagnosis: 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 factor deficiency[ICD10: D51.0] Janet Vega MD, [facility] CPT-4: 73012 12/12/2017 ([id number]) 68612 EST. PATIENT, LEVEL IV Diagnosis: Acute bronchitis due to Hemophilus influenzae[ICD10: J20.1] Diagnosis: Cough[ICD10: R05] Yarely Vega MD, [facility] CPT-4: 62561 12/04/2017 ([id number]) 13045 EST. PATIENT, LEVEL IV Diagnosis: Essential (primary) hypertension[ICD10: I10] Diagnosis: Cough[ICD10: R05] Diagnosis: Chronic atrial fibrillation[ICD10: I48.2] Yarely Vega MD, [facility] CPT-4: 46524 11/20/2017 ([id number]) 41562 EST. PATIENT, LEVEL III Diagnosis: Cough[ICD10: R05] Diagnosis: Acute upper respiratory infection, unspecified[ICD10: J06.9] Janet Vega MD, [facility] CPT-4: 46492 09/15/2017 23916 EST. PATIENT, LEVEL III Diagnosis: Laceration without foreign body of right forearm, initial encounter[ICD10: S51.811A] Diagnosis: Other vitamin B12 deficiency anemias[ICD10: D51.8] Brianna Vega MD, [facility] CPT-4: 62669 09/07/2017 ([id number]) 16671 EST. PATIENT, LEVEL IV Diagnosis: Chronic atrial fibrillation[ICD10: I48.2] Diagnosis: Other allergic rhinitis[ICD10: J30.89] Diagnosis: Encounter for therapeutic drug level monitoring[ICD10: Z51.81] Y[facility]ly [facility]ega MD, [facility] CPT-4: 91815 08/30/2017 ([id number]) 60028 EST. PATIENT, LEVEL IV Diagnosis: Atrophy of thyroid (acquired)[ICD10: E03.4] Diagnosis: Cough[ICD10: R05] Diagnosis: Laceration without foreign body of left forearm, initial encounter[ICD10: S51.812A] Diagnosis: Candidiasis of skin and nail[ICD10: B37.2] Diagnosis: Other vitamin B12 deficiency anemias[ICD10: D51.8] Diagnosis: Slow transit constipation[ICD10: K59.01] Yarely Vega MD, [facility] CPT-4: 68622 07/06/2017 45523 EST. PATIENT, LEVEL III Diagnosis: Other vitamin B12 deficiency anemias[ICD10: D51.8] Diagnosis: Acute laryngopharyngitis[ICD10: J06.0] Diagnosis: Other allergic rhinitis[ICD10: J30.89] Brianna Vega MD, [facility] CPT- 4: 65218 06/20/2017 ([id number]) 60456 EST. PATIENT, LEVEL IV Diagnosis: Essential (primary) hypertension[ICD10: I10] Diagnosis: Chronic atrial fibrillation[ICD10: I48.2] Diagnosis: Atrophy of thyroid (acquired)[ICD10: E03.4] Diagnosis: 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 factor deficiency[ICD10: D51.0] Yarely Vega MD, [facility] CPT-4: 24370 05/25/2017 ([id number]) 07795 EST. 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 PATIENT, LEVEL IV Diagnosis: Type 2 diabetes mellitus without complications[ICD10: E11.9] Diagnosis: Essential (primary) hypertension[ICD10: I10] Diagnosis: Headache[ICD10: R51] Diagnosis: Atrophy of thyroid (acquired)[ICD10: E03.4] Diagnosis: Vitamin B12 deficiency anemia, unspecified[ICD10: D51.9] Yarely Vega MD, [facility] CPT-4: 93008 01/23/2017 [id number] EST. PATIENT, LEVEL III Diagnosis: Low back pain[ICD10: M54.5] Diagnosis: Pain in thoracic spine[ICD10: M54.6] Brianna Vega MD, [facility] CPT- 4: 69207 11/02/2016 ([id number]) 78239 EST. PATIENT, LEVEL IV Diagnosis: Essential (primary) hypertension[ICD10: I10] Diagnosis: Other vitamin B12 deficiency anemias[ICD10: D51.8] Diagnosis: Generalized abdominal pain[ICD10: R10.84] Yarely Vega MD, [facility] CPT-4: 85710 09/29/2016 ([id number]) 13382 EST. PATIENT, LEVEL IV Diagnosis: Essential (primary) hypertension[ICD10: I10] Yarely Vega MD, [facility] CPT-4: 95899 07/26/2016 ([id number]) 79502 EST. PATIENT, LEVEL IV Diagnosis: Benign lipomatous neoplasm of skin and subcutaneous tissue of right leg[ICD10: D17.23] Diagnosis: Pain in right ankle and joints of right foot[ICD10: M25.571] Diagnosis: Encounter for immunization[ICD10: Z23] Diagnosis: Vitamin B12 deficiency anemia, unspecified[ICD10: D51.9] Yarely Vega MD, [facility] CPT-4: 16574 05/25/2016 [id number] EST. PATIENT, LEVEL III Diagnosis: Other chest pain[ICD10: R07.89] Diagnosis: Other vitamin B12 deficiency anemias[ICD10: D51.8] Brianna Vega MD, [facility] CPT-4: 63184 02/25/2016 ([id number]) 76947 EST. 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 PATIENT, LEVEL III Diagnosis: Other vitamin B12 deficiency anemias[ICD10: D51.8] Diagnosis: Acute nasopharyngitis [common cold][ICD10: J00] Diagnosis: Other allergic rhinitis[ICD10: J30.89] Brianna Vega MD, [facility] CPT- 4: 63249 11/11/2015 ([id number]) 43674 EST. PATIENT, LEVEL IV Diagnosis: Essential tremor[ICD10: G25.0] Diagnosis: Chronic fatigue, unspecified[ICD10: R53.82] Diagnosis: Other hypersomnia[ICD10: G47.19] Diagnosis: Essential (primary) hypertension[ICD10: I10] Yarely Vega MD, [facility] CPT-4: 68748 10/12/2015 ([id number]) 77596 EST. PATIENT, LEVEL IV Diagnosis: Essential (primary) hypertension[ICD10: I10] Diagnosis: Chronic atrial fibrillation[ICD10: I48.2] Diagnosis: Abnormal levels of other serum enzymes[ICD10: R74.8] Diagnosis: Type 2 diabetes mellitus without complications[ICD10: E11.9] Diagnosis: Vitamin B12 deficiency anemia, unspecified[ICD10: D51.9] Yarely Vega MD, [facility] CPT-4: 72330 09/03/2015 ([id number]) 40719 EST. PATIENT, LEVEL III Diagnosis: Nausea[ICD10: R11.0] Diagnosis: Essential tremor[ICD10: G25.0] Diagnosis: Actinic keratosis[ICD10: L57.0] Yarely Vega MD, [facility] CPT-4: 44623 05/19/2015 ([id number]) 61323 EST. PATIENT, LEVEL IV Diagnosis: Vitamin B12 deficiency anemia, unspecified[ICD10: D51.9] Diagnosis: Chronic atrial fibrillation[ICD10: I48.2] Diagnosis: Headache[ICD10: R51] Diagnosis: Chronic fatigue, unspecified[ICD10: R53.82] Diagnosis: Cervicalgia[ICD10: M54.2] Yarely Vega MD, [facility] CPT-4: 26073 05/12/2015 ([id number]) 75958 EST. PATIENT, LEVEL IV Diagnosis: ESSENTIAL HYPERTENSION[ICD9: 401.9] Diagnosis: Afib[ICD9: 427.31] Diagnosis: Anxiety[ICD9: 300.00] Diagnosis: Insomnia[ICD9: 780.52] Yarely Vega MD, [facility] CPT-4: 43516 01/13/2015 ([id number]) OFFICE VISIT, NEW - LEVEL 4 Diagnosis: Hypothyroidism[ICD9: 244.9] Diagnosis: DIABETES TYPE II[ICD9: 250.00] Diagnosis: ESSENTIAL HYPERTENSION[ICD9: 401.9] Diagnosis: Afib[ICD9: 427.31] Diagnosis: Anxiety[ICD9: 300.00] Diagnosis: B12 deficiency[ICD9: 266.2] Janet Vega MD, [facility] CPT-4: 39674 12/16/2014 Plan of Care Planned Activity Notes Codes Status Date Patient Education: Patient Medication Summary Completed 06/20/2018 App[phone] [place] ([facility]) Complex 06/07/2018 Appointment: Injection 06/06/2018 Patient Education: Patient Medication Summary Completed 06/06/2018 [facility]ment: [phone] [facility] [place] (15 min) Moderate 05/31/2018 Appointment: [...] flonase 05/03/2018 App[facility]ment[phone] [place] (15 min) Moderate 05/03/2018 Patient [...] surgical intervention. 02/26/2018 Appointment: Yarely Vega WPtel: [facility] (15 min) Moderate 02/26/2018 Patient Education: Patient Medication Summary Completed 02/26/2018 Care Plan: Referral Order SNOMED-CT : [id number] Pending 02/26/2018 Appointment: Injection 02/08/2018 Patient Education: Patient Medication Summary Completed 02/08/2018 Appointment: Injection 01/24/2018 Patient Education: Patient Medication Summary Completed 01/24/2018 Appointment: Injection 01/10/2018 Patient Education: Patient Medication Summary Completed 01/10/2018 Appointment: Injection 12/27/2017 Patient Education: Patient Medication Summary Completed 12/27/2017 Appointment: Yarely Vega WPtel: [phone] [facility] [place] (15 min) Moderate 12/26/2017 Visit Plan: Vjcana-smlmtocix-rrcjxptl protonix-follow up with Dr Navarro as scheduled Cough-recent bronchitis-symptoms improved-call if symptoms do not completely resolve 12/12/2017 Appointment: Janet Fam WPtel: [phone] [phone] [place] (15 min) Moderate 12/12/2017 Patient [...] medication. 12/04/2017 Appointment: Yarely Vega WPtel: [phone] [facility] (15 min) Moderate 12/04/2017 Patient Education: Patient [...] Fatigue/malaise -Pt was advsied to ask the Yarn Inspector the following: ask the heart doctor if [...] becoming uncontrolled. 11/20/2017 Appointment: Yarely Vega WPtel: [phone] [facility] (15 min) Moderate 11/20/2017 Patient Education: [...] worse. 09/15/2017 Appointment: Janet Fam WPtel: [phone] [phone] [place] (15 min) Moderate 09/15/2017 Patient Education: Patient Medication Summary Completed 09/15/2017 Appointment: Yarely Vega WPtel: [facility] [place] (15 min) Moderate 09/11/2017 Visit Plan: Skin tear and Cellulitis - The patient was instructed in appropriate wound care. The patient was instructed to use the antibiotic ointment as per RX. The patient is to call for any change in symptoms, increase in size of the lesion, increase in pain, worsening redness, warmth, discharge. 09/07/2017 Appointment: Brianna Otoole WPtel: [facility] [place] (10 min) Simple 09/07/2017 Patient Education: Patient Medication Summary Completed 09/07/2017 Visit Plan: Lipoma - left ankle - talk to dr. barnes about possible surgery/laser for treatment of lipoma. Fatigue/malaise -Pt was advsied to ask the Yarn Inspector the following: ask the heart doctor if there is an alternative to the amiodarone - you may be having side effects from the medication causing you to have pruritus (itching) and feeling like you have body aches, muscle aches, joint pain, fatigue, weight loss (decreased appetite), and pneumonia like symptoms. Congestion - claritin 10mg daily. 08/30/2017 Appointment: Yarely Vega WPtel: [address] [place], [place] [phone] [place] (15 min) Moderate 08/30/2017 Patient Education: Patient Medication Summary Completed 08/30/2017 Appointment: Injection 08/24/2017 Appointment: Yarely Vega WPtel: [facility] [place] (15 min) Moderate 08/24/2017 Patient [...] mucinex 07/06/2017 Appointment: Yarely Vega WPtel: [phone] [facility] (15 min) Moderate 07/06/2017 Patient Education: [...] spray. 06/20/2017 Appointment: [phone] (15 min) Moderate 06/20/2017 [...] Injection 06/05/2017 Appointment: Brianna Otoole [facility]el[phone] [facility] - Annual Wellness Visit 06/05/2017 Patient [...] q 3 months or q 6 m [facility] based on previous levels of control. 05/25/2017 Appointment: [facility]el[phone] ([facility] min) Moderate 05/25/2017 Patient Education: [...] wall. Fatigue - pt to discuss with Yarn Inspector about the possibility of amiodarone causing her fatigue/malaise. 03/23/2017 Appointment: Yarely Vega WPtel: [facility] (15 min) Moderate 03/23/2017 Patient Education: [...] twice daily. 01/23/2017 Appointment: Yarely Vega WPtel: [facility] (15 min) Moderate 01/23/2017 Patient Education: [...] improve. 11/02/2016 Appointment: Brianna Otoole WPtel: [phone] [facility] [place] (15 min) Moderate 11/02/2016 Patient Education: [...] carafate 09/29/2016 Appointment: [facility]arely [facility]ega WPtel[phone] [facility] [place] (15 min) Moderate 09/29/2016 Patient Education: Patient Medication Summary Completed 09/29/2016 Appointment: Yarely Vega WPtel: [phone] [facility] [place] (15 min) Moderate 09/27/2016 Appointment: [facility]ega [facility]Ptel[phone] [place] (15 min) Moderate 09/20/2016 Appointment: Yarely Vega WPtel: [phone] [facility] [place] (15 min) Moderate 09/20/2016 Patient Education: Patient Medication Summary Completed 09/06/2016 Appointment: Yarely Vega WPtel: [phone] [facility] [place] (15 min) Moderate 08/30/2016 Appointment: Injection [...] acute concerns. 07/26/2016 Appointment: Yarely Vega WPtel: [facility] [place] (15 min) Moderate 07/26/2016 Patient [...] surrogate. 05/30/2016 Appointment: Brianna [facility]toole [facility]Ptel[phone] [facility] - Annual Wellness Visit 05/30/2016 Patient [...] bedtime 05/25/2016 Appointment: [facility]ega [facility]Ptel[phone] (15 min) Moderate 05/25/2016 Patient Education: Patient Medication Summary Completed 05/25/2016 Patient Education: Obesity Completed 05/25/2016 Care Plan: Referral Order SNOMED-CT : [id number] Pending 05/25/2016 Appointment: Injection 05/10/2016 Patient Education: Patient Medication Summary Completed 05/10/2016 Appointment: Injection 04/26/2016 Patient Education: Patient Medication Summary Completed 04/26/2016 Appointment: Injection 04/11/2016 Patient Education: Patient Medication Summary Completed 04/11/2016 Appointment: Injection 03/31/2016 Patient Education: Patient Medication Summary Completed 03/31/2016 Patient Education: Patient Medication Summary Completed 03/22/2016 Care Plan: SCREENINGMAMMOGRAPHYDIGITAL LOINC : 99856-2 Pending 03/22/2016 Appointment: Injection 03/15/2016 Patient Education: [...] any concerns. 02/25/2016 Appointment: Brianna Otoole WPtel: [facility] (15 min) Moderate 02/25/2016 Patient [...] the patients recent sleep study - recommended [place] home patient eval of pt - nocturnal [...] the patients recent sleep study - recommended [place] home patient eval of pt - nocturnal [...] with [facility] She is interested in looking at assisted living facilities for her mom as Faiza's family is for assisted living placement sooner rather than later. 10/12/2015 Appointment: Yarely Vega WPtel: [address] [place] [address] (15 min) Moderate 10/12/2015 Patient Education: Patient [...] Completed 08/17/2015 Appointment: [facility]ega WPtel[phone] (15 min) Moderate 08/11/2015 Appointment: Injection [...] x 2 05/19/2015 Appointment: Yarely Vega WPtel: [facility] (30 min) Complex 05/19/2015 Patient Education: [...] prn alprazolam. 01/13/2015 Appointment: [facility]ly [facility]ega WPtel[phone] (15 min) Moderate 01/13/2015 Patient Education: [...] medications. 12/16/2014 Appointment: Janet F[facility]Ptel: [phone] [place] ([place]) New Patient [...] case with Faiza's daughter who had [facility]. She is interested in looking at [...] DOPA paperwork for health care surrogate. . Ejsnty-[id number] protonix-follow up with Dr Navarro as scheduled [...] Fatigue/malaise -Pt was advsied to ask the Yarn Inspector the following: ask the heart doctor if [...] Fatigue/malaise -Pt was advsied to ask the Yarn Inspector the following: ask the heart doctor if [...] wall. Fatigue - pt to discuss with Yarn Inspector about the possibility of amiodarone causing her [...] the patients recent sleep study - recommended [place] patient eval of pt - nocturnal oxygen [...] the patients recent sleep study - recommended [place] home patient eval of pt - nocturnal [...]
--- OUTSIDE RECORDS SUMMARY | 2018-12-05 19:12 | XMS REPORT | CCD ---
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 Name Role Phone PP Unavailable CCM Unavailable Summary Purpose Interface Exchange Insurance Providers Payer name Policy type / Coverage type Covered alliance party ID Effective Begin Date Effective End Date WPS Medicare Part B Medicare Part B [id number] Unknown Principal Life Insurance Medicare Part B [id number] Unknown Family history Brother Diagnosis Age At Onset Heart Attack Unknown Mother Diagnosis Age At Onset Hypertension Unknown kidney disease Unknown Stroke Unknown Father Diagnosis Age At Onset Arthritis Unknown Social History Social History Element Codes Description Effective Dates Employment Unknown Retired worked at [employer] 11/20/2017 Marital status Unknown Single 12/16/[address]: 4454920 Former smoker 12/16/[address]: 299179104 Never drinks alcohol 12/16/2014 Allergies, Adverse Reactions, Alerts Substance Reaction Codes Entered Date Inactivated Date Status CODEINE RxNorm: 2670 05/25/2016 No Inactive Date Active ciprofloxacin RxNorm: 02543 12/16/2014 No Inactive Date Active MORPHINE SULFATE [...] hydrocodone 5 mg-acetaminophen 325 mg tablet RxNorm: 079359 1-2 Tablet(s) PO Q6 as needed for pain 06/20/2018 07/19/2018 Active Flonase Allergy Relief 50 mcg/actuation nasal spray,suspension RxNorm: 8463714 [place] NASAL BID 06/20/2018 10/17/2018 Active cyanocobalamin (vit B-12) 1,000 mcg/mL injection solution RxNorm: 258453 Milliliter(s) Inj 06/06/2018 06/06/2018 Inactive alprazolam 0.25 mg tablet RxNorm: 298129 1 Tablet(s) PO BID 05/25/2018 08/22/2018 Active hydrocodone 5 mg-acetaminophen 325 mg tablet RxNorm: 175079 1-2 Tablet(s) PO Q6 as needed for pain 05/24/2018 06/19/2018 Inactive cyanocobalamin (vit B-12) 1,000 mcg/mL injection solution RxNorm: 424973 Milliliter(s) Inj 05/24/2018 05/24/2018 Inactive cyanocobalamin (vit B-12) 1,000 mcg/mL injection solution RxNorm: 849410 Millil[place](s) Inj 05/09/2018 05/09/2018 Inactive Claritin 10 mg tablet RxNorm: 631910 TAKE 1 TABLET BY MOUTH ONCE DAILY 05/08/2018 05/02/2019 Active Generic For:CLARITIN 10MG 05/07/2018 9:13:47 AM cyanocobalamin (vit B-12) 1,000 mcg/mL injection solution RxNorm: 770129 INJECT ONE 1 ML EVERY TWO WEEKS 05/03/2018 04/03/2019 Active 05/03/2018 9:13:42 AM Mobic 15 mg tablet RxNorm: 046601 Tablet(s) 1 Tablet(s) PO daily 04/26/2018 04/20/2019 Active buspirone 15 mg tablet RxNorm: 921238 Tablet(s) TAKE 1 TABLET BY MOUTH TWICE DAILY 04/26/2018 04/20/2019 Active Generic For:BUSPAR 15MG 05/31/2017 9:19:20 AM Norvasc 5 mg tablet RxNorm: 791506 Tablet(s) 1 Tablet(s) PO daily 04/26/2018 04/20/2019 Active cyanocobalamin (vit B-12) 1,000 mcg/mL injection solution RxNorm: 432277 Milliliter(s) Inj 04/26/2018 04/26/2018 Inactive hydrocodone 5 mg-acetaminophen 325 mg tablet RxNorm: 979286 1-2 Tablet(s) PO Q6 as needed for pain 04/25/2018 05/23/2018 Inactive cyanocobalamin (vit B-12) 1,000 mcg/mL injection solution RxNorm: 096732 Mill[place](s) Inj 04/12/2018 04/12/2018 Inactive Topamax 25 mg tablet RxNorm: 465214 1 Tablet(s) PO BID 04/09/2018 05/02/2018 Inactive Generic For:TOPAMAX 25MG 12/06/2016 9:15:13 AM Zoloft 50 mg tablet RxNorm: 592059 TAKE 1 TABLET BY MOUTH ONCE DAILY 04/04/2018 12/29/2018 Active Generic For:ZOLOFT 50MG 04/04/2018 9:13:25 AM cyanocobalamin (vit B-12) 1,000 mcg/mL injection solution RxNorm: 079109 Milliliter(s) Inj 03/30/2018 03/30/2018 Inactive levothyroxine 125 mcg tablet RxNorm: 830208 TAKE 1 TABLET BY MOUTH EVERY DAY 03/26/2018 09/21/2018 Active Generic For:SYNTHROID 125MCG TAB 03/26/2018 9:15:59 AM liothyronine 5 mcg tablet RxNorm: 570222 TAKE 1 TABLET BY MOUTH TWICE DAILY 03/26/2018 09/21/2018 Active Generic For:CYTOMEL 5MCG 03/26/2018 9:15:54 AM hydrocodone 5 mg-acetaminophen 325 mg tablet RxNorm: 953807 1-2 Tablet(s) PO Q6 as needed for pain 03/19/2018 04/17/2018 Inactive cyanocobalamin (vit B-12) 1,000 mcg/mL injection solution RxNorm: 344918 Mill[place](s) Inj 03/16/2018 03/16/2018 Inactive Flonase Allergy Relief 50 mcg/actuation nasal spray,suspension RxNorm: 2259620 1 [place] NASAL BID 03/05/2018 06/19/2018 Inactive cyanocobalamin (vit B-12) 1,000 mcg/mL injection solution RxNorm: 859972 Millil[place](s) Inj 03/02/2018 03/02/2018 Inactive alprazolam 0.25 mg tablet RxNorm: 759648 1 Tablet(s) PO BID 02/28/2018 05/27/2018 Inactive cyanocobalamin (vit B-12) 1,000 mcg/mL injection solution RxNorm: 339115 Milliliter(s) Inj 02/08/2018 02/08/2018 Inactive cyanocobalamin (vit B-12) 1,000 mcg/mL injection solution RxNorm: 023190 Millil[place](s) Inj 01/24/2018 01/24/2018 Inactive albuterol sulfate 2.5 mg/3 mL (0.083 %) solution for nebulization RxNorm: 526896 3 Milliliter(s) INH Q6 PRN 01/24/2018 05/02/2018 Inactive Claritin 10 mg tablet RxNorm: 711707 1 Tablet(s) PO daily 01/15/2018 05/07/2018 Inactive cyanocobalamin (vit B-12) 1,000 mcg/mL injection solution RxNorm: 368845 Milliliter(s) Inj 01/10/2018 01/10/2018 Inactive hydrocodone 5 mg-acetaminophen 325 mg tablet RxNorm: 363803 1-2 Tablet(s) PO Q6 as needed for pain 01/09/2018 02/07/2018 Inactive cyanocobalamin (vit B-12) 1,000 mcg/mL injection solution RxNorm: 218134 Milliliter(s) Inj 12/27/2017 12/27/2017 Inactive cyanocobalamin (vit B-12) 1,000 mcg/mL injection solution RxNorm: 701092 1 Milliliter(s) Inj 12/12/2017 12/12/2017 Inactive Zofran ODT 4 mg disintegrating tablet RxNorm: 959367 1 Tablet(s) PO TID as needed 12/08/2017 12/09/2017 Inactive hydrocodone 2.5 mg-guaifenesin 200 mg/5 mL oral solution RxNorm: 208936 5 Milliliter(s) PO 12/04/2017 05/06/2018 Inactive doxycycline hyclate 100 mg capsule RxNorm: 0675497 1 Capsule(s) PO BID 12/04/2017 12/13/2017 Inactive cyanocobalamin (vit B-12) 1,000 mcg/mL injection solution RxNorm: 700799 Milliliter(s) Inj 12/01/2017 12/01/2017 Inactive Flonase Allergy Relief 50 mcg/actuation nasal spray,suspension RxNorm: 0539059 1 [place] NASAL BID 11/20/2017 2018 Inactive cyanocobalamin (vit B-12) 1,000 mcg/mL injection solution RxNorm: 164060 1 Milliliter(s) Inj 11/17/2017 11/17/2017 Inactive hydrocodone 5 mg-acetaminophen 325 mg tablet RxNorm: 074504 1-2 Tablet(s) PO Q6 as needed for pain 11/16/2017 12/15/2017 Inactive cyanocobalamin (vit B-12) 1,000 mcg/mL injection solution RxNorm: 942809 1 Milliliter(s) Inj 11/02/2017 11/02/2017 Inactive hydrocodone 5 mg-acetaminophen 325 mg tablet RxNorm: 627552 1-2 Tablet(s) PO Q6 as needed for pain 10/25/2017 11/15/2017 Inactive Claritin 10 mg tablet RxNorm: 153868 1 Tablet(s) PO daily 10/25/2017 11/19/2017 Inactive albuterol sulfate 2.5 mg/3 mL (0.083 %) solution for nebulization RxNorm: 157011 3 Milliliter(s) INH Q6 PRN 10/25/2017 01/23/2018 Inactive Claritin 10 mg tablet RxNorm: 318691 1 Tablet(s) PO daily 10/25/2017 10/24/2017 Inactive cyanocobalamin (vit B-12) 1,000 mcg/mL injection solution RxNorm: 831967 1 Milliliter(s) Inj 10/20/2017 10/20/2017 Inactive Zoloft 50 mg tablet RxNorm: 767330 TAKE 1 TABLET BY MOUTH ONCE DAILY 10/13/2017 04/03/2018 Inactive Generic For:ZOLOFT 50MG 10/13/2017 8:59:44 AM cyanocobalamin (vit B-12) 1,000 mcg/mL injection solution RxNorm: 040545 Milliliter(s) Inj 10/06/2017 10/06/2017 Inactive liothyronine 5 mcg tablet RxNorm: 475828 TAKE 1 TABLET BY MOUTH TWICE DAILY 10/03/2017 03/25/2018 Inactive Generic For:CYTOMEL 5MCG 10/03/2017 9:13:38 AM cyanocobalamin (vit B-12) 1,000 mcg/mL injection solution RxNorm: 719643 Milliliter(s) Inj 09/21/2017 09/21/2017 Inactive albuterol sulfate 2.5 mg/3 mL (0.083 %) solution for nebulization RxNorm: 889794 3 Milliliter(s) INH Q6 PRN 09/21/2017 10/24/2017 Inactive hydrocodone 5 mg-acetaminophen 325 mg tablet RxNorm: 045566 1-2 Tablet(s) PO Q6 as needed for pain 09/21/2017 10/20/2017 Inactive Kenalog 40 mg/mL suspension for injection RxNorm: 3740571 Milliliter(s) Inj 09/15/2017 09/15/2017 Inactive Keflex 500 mg capsule RxNorm: 977487 1 Capsule(s) PO TID 09/07/2017 09/16/2017 Inactive Please deliver to patient cyanocobalamin (vit B-12) 1,000 mcg/mL injection solution RxNorm: 432459 Milliliter(s) Inj 09/07/2017 09/07/2017 Inactive Aricept 10 mg tablet RxNorm: 908763 1 Tablet(s) PO daily 09/06/2017 08/31/2018 Active alprazolam 0.25 mg tablet RxNorm: 709324 1 Tablet(s) PO BID 09/06/2017 02/27/2018 Inactive hydrocodone 5 mg-acetaminophen 325 mg tablet RxNorm: 878463 1-2 Tablet(s) PO Q6 as needed for pain 08/24/2017 09/20/2017 Inactive cyanocobalamin (vit B-12) 1,000 mcg/mL injection solution RxNorm: 296160 Milliliter(s) Inj 08/24/2017 08/24/2017 Inactive Norvasc 5 mg tablet RxNorm: 657939 1 Tablet(s) PO daily 08/18/2017 04/25/2018 Inactive nystatin 100,000 unit/gram topical powder RxNorm: 418983 1 Gram(s) TOP QID 08/17/2017 08/26/2017 Inactive hydrocodone 5 mg-acetaminophen 325 mg tablet RxNorm: 562432 1-2 Tablet(s) PO Q6 as needed for pain 07/25/2017 08/23/2017 Inactive Tamiflu 75 mg capsule RxNorm: 754053 1 Capsule(s) PO BID 07/24/2017 12/11/2017 Inactive nystatin 100,000 unit/gram topical powder RxNorm: 626440 1 Gram(s) TOP QID 07/14/2017 07/22/2017 Inactive levothyroxine 125 mcg tablet RxNorm: 660059 Tablet(s) 1 Tablet(s) PO daily 07/10/2017 01/05/2018 Inactive nystatin 100,000 unit/gram topical powder RxNorm: 045881 1 Gram(s) TOP QID 07/06/2017 07/13/2017 Inactive cyanocobalamin (vit B-12) 1,000 mcg/mL injection solution RxNorm: 724859 Milliliter(s) Inj 07/06/2017 07/06/2017 Inactive Kenalog 40 mg/mL suspension for injection RxNorm: 4652426 1 Milliliter(s) Inj 06/20/2017 06/20/2017 Inactive doxycycline hyclate 100 mg capsule RxNorm: 3511798 1 Capsule(s) PO BID 06/20/2017 06/26/2017 Inactive cyanocobalamin (vit B-12) 1,000 mcg/mL injection solution RxNorm: 952419 Milliliter(s) Inj 06/20/2017 06/20/2017 Inactive Keflex 500 mg capsule RxNorm: 762608 1 Capsule(s) PO TID 06/14/2017 06/23/2017 Inactive Please deliver to patient Mobic 15 mg tablet RxNorm: 000104 1 Tablet(s) PO daily 06/14/2017 04/25/2018 Inactive cyanocobalamin (vit B-12) 1,000 mcg/mL injection solution RxNorm: 423914 Milliliter(s) Inj 06/05/2017 06/05/2017 Inactive buspirone 15 mg tablet RxNorm: 342577 TAKE 1 TABLET BY MOUTH TWICE DAILY 05/31/2017 04/25/2018 Inactive Generic For:BUSPAR 15MG 05/31/2017 9:19:20 AM cyanocobalamin (vit B-12) 1,000 mcg/mL injection solution RxNorm: 353884 Milliliter(s) Inj 05/25/2017 05/25/2017 Inactive hydrocodone 5 mg-acetaminophen 325 mg tablet RxNorm: 527511 1-2 Tablet(s) PO Q6 as needed for pain 05/25/2017 06/23/2017 Inactive amiodarone 200 mg tablet RxNorm: 288316 1/2 Tablet(s) PO daily 05/22/2017 No Stop Date Active cardiology decreased to 100mg daily cyanocobalamin (vit B-12) 1,000 mcg/mL injection solution RxNorm: 454894 Milliliter(s) Inj 05/16/2017 05/16/2017 Inactive Zofran ODT 4 mg disintegrating tablet RxNorm: 459226 1 Tablet(s) PO TID as needed 05/03/2017 05/04/2017 Inactive hydrocodone 5 mg-acetaminophen 325 mg tablet RxNorm: 977860 1-2 Tablet(s) PO Q6 as needed for pain 05/01/2017 05/05/2017 Inactive cyanocobalamin (vit B-12) 1,000 mcg/mL injection solution RxNorm: 069272 1 Milliliter(s) Inj 05/01/2017 05/01/2017 Inactive cyanocobalamin (vit B-12) 1,000 mcg/mL injection solution RxNorm: 067794 INJECT ONE 1 ML EVERY TWO WEEKS 04/26/2017 12/04/2018 Active 04/26/2017 9:08:52 AM Zoloft 50 mg tablet RxNorm: 536548 Tablet(s) TAKE 1 TABLET BY MOUTH DAILY 04/25/2017 10/12/2017 Inactive Generic For:ZOLOFT 50MG cyanocobalamin (vit B-12) 1,000 mcg/mL injection solution RxNorm: 055754 Milliliter(s) Inj 04/18/2017 04/18/2017 Inactive liothyronine 5 mcg tablet RxNorm: 486613 1 Tablet(s) PO BID 04/13/2017 10/02/2017 Inactive cyanocobalamin (vit B-12) 1,000 mcg/mL injection solution RxNorm: 238245 Milliliter(s) Inj 04/06/2017 04/06/2017 Inactive hydrocodone 5 mg-acetaminophen 325 mg tablet RxNorm: 464651 1-2 Tablet(s) PO Q6 as needed for pain 04/06/2017 04/10/2017 Inactive cyanocobalamin (vit B-12) 1,000 mcg/mL injection solution RxNorm: 408601 Milliliter(s) Inj 03/22/2017 03/22/2017 Inactive alprazolam 0.25 mg tablet RxNorm: 708517 1 Tablet(s) PO BID 03/17/2017 12/11/2017 Inactive alprazolam 0.25 mg tablet RxNorm: 690791 1 Tablet(s) PO BID 03/16/2017 09/05/2017 Inactive hydrocodone 5 mg-acetaminophen 325 mg tablet RxNorm: 432541 1-2 Tablet(s) PO Q6 as needed for pain 03/09/2017 03/13/2017 Inactive cyanocobalamin (vit B-12) 1,000 mcg/mL injection solution RxNorm: 842950 Milliliter(s) Inj 03/09/2017 03/09/2017 Inactive cyanocobalamin (vit B-12) 1,000 mcg/mL injection solution RxNorm: 397797 Milliliter(s) Inj 02/23/2017 02/23/2017 Inactive cyanocobalamin (vit B-12) 1,000 mcg/mL injection solution RxNorm: 475044 Milliliter(s) Inj 02/09/2017 02/09/2017 Inactive hydrocodone 5 mg-acetaminophen 325 mg tablet RxNorm: 888022 1-2 Tablet(s) PO Q6 as needed for pain 02/08/2017 02/12/2017 Inactive Topamax 25 mg tablet RxNorm: 440098 1 Tablet(s) PO BID 01/23/2017 05/22/2017 Inactive Generic For:TOPAMAX 25MG 12/06/2016 9:15:13 AM cyanocobalamin (vit B-12) 1,000 mcg/mL injection solution RxNorm: 271339 Milliliter(s) Inj 01/23/2017 01/23/2017 Inactive cyanocobalamin (vit B-12) 1,000 mcg/mL injection solution RxNorm: 506819 Milliliter(s) Inj 01/10/2017 01/10/2017 Inactive hydrocodone 5 mg-acetaminophen 325 mg tablet RxNorm: 823294 1-2 Tablet(s) PO Q6 as needed for pain 01/09/2017 01/13/2017 Inactive cyanocobalamin (vit B-12) 1,000 mcg/mL injection solution RxNorm: 275936 1 Milliliter(s) Inj 12/28/2016 12/28/2016 Inactive cyanocobalamin (vit B-12) 1,000 mcg/mL injection solution RxNorm: 018197 Milliliter(s) Inj 12/14/2016 12/14/2016 Inactive buspirone 15 mg tablet RxNorm: 140271 1 Tablet(s) PO BID 12/12/2016 05/30/2017 Inactive hydrocodone 5 mg-acetaminophen 325 mg tablet RxNorm: 164462 1-2 Tablet(s) PO Q6 as needed for pain 12/08/2016 12/12/2016 Inactive Topamax 25 mg tablet RxNorm: 213764 TAKE 1 TABLET BY MOUTH EVERY DAY AT BEDTIME 12/06/2016 01/22/2017 Inactive Generic For:TOPAMAX 25MG 12/06/2016 9:15:13 AM Lac-Hydrin Five 5 % lotion RxNorm: 025621 1 Gram(s) TOP daily 12/02/2016 05/02/2018 Inactive cyanocobalamin (vit B-12) 1,000 mcg/mL injection solution RxNorm: 518195 Milliliter(s) Inj 11/24/2016 11/24/2016 Inactive Ceftin 500 mg tablet RxNorm: 536535 1 Tablet(s) PO BID 11/11/2016 06/13/2017 Inactive Cipro 500 mg tablet RxNorm: 789608 1 Tablet(s) PO BID 11/11/2016 11/10/2016 Inactive Cipro 500 mg tablet RxNorm: 053642 1 Tablet(s) PO BID 11/11/2016 11/11/2016 Inactive cyanocobalamin (vit B-12) 1,000 mcg/mL injection solution RxNorm: 661967 1 Milliliter(s) Inj 11/07/2016 11/07/2016 Inactive hydrocodone 5 mg-acetaminophen 325 mg tablet RxNorm: 135585 1-2 Tablet(s) PO Q6 as needed for pain 11/02/2016 11/06/2016 Inactive cyanocobalamin (vit B-12) 1,000 mcg/mL injection solution RxNorm: 664923 Milliliter(s) Inj 10/24/2016 10/24/2016 Inactive levothyroxine 125 mcg tablet RxNorm: 605335 Tablet(s) 1 Tablet(s) PO daily 10/24/2016 04/21/2017 Inactive liothyronine 5 mcg tablet RxNorm: 768184 1 Tablet(s) PO BID 10/24/2016 04/12/2017 Inactive hydrocodone 5 mg-acetaminophen 325 mg tablet RxNorm: 860808 1-2 Tablet(s) PO Q6 as needed for pain 10/17/2016 10/21/2016 Inactive Keflex 500 mg capsule RxNorm: 216313 1 Capsule(s) PO TID 10/07/2016 10/06/2016 Inactive Keflex 500 mg capsule RxNorm: 560174 1 Capsule(s) PO TID 10/07/2016 10/16/2016 Inactive Please deliver to patient cyanocobalamin (vit B-12) 1,000 mcg/mL injection solution RxNorm: 206123 1 Milliliter(s) Inj 09/29/2016 09/29/2016 Inactive alprazolam 0.25 mg tablet RxNorm: 224383 1 Tablet(s) PO BID 09/20/2016 03/16/2017 Inactive Cozaar 100 mg tablet RxNorm: 860325 1 Tablet(s) PO daily 09/14/2016 No Stop Date Active metoprolol tartrate 50 mg tablet RxNorm: 678183 1/2 Tablet(s) PO BID 09/14/2016 12/12/2016 Inactive Zoloft 50 mg tablet RxNorm: 956744 Tablet(s) TAKE 1 TABLET BY MOUTH DAILY 09/14/2016 03/12/2017 Inactive Generic For:ZOLOFT 50MG liothyronine 5 mcg tablet RxNorm: 236794 1 Tablet(s) PO BID 09/14/2016 10/23/2016 Inactive Calmoseptine 0.44 %-20.6 % topical ointment RxNorm: 713806 1 Application TOP BID and as needed to sore on buttocks 09/07/2016 No Stop Date Active cyanocobalamin (vit B-12) 1,000 mcg/mL injection solution RxNorm: 782773 Milliliter(s) Inj 08/29/2016 08/29/2016 Inactive hydrocodone 5 mg-acetaminophen 325 mg tablet RxNorm: 095413 1-2 Tablet(s) PO Q6 as needed for pain 08/29/2016 10/16/2016 Inactive levothyroxine 125 mcg tablet RxNorm: 205720 1 Tablet(s) PO daily 08/25/2016 10/23/2016 Inactive Topamax 25 mg tablet RxNorm: 499320 TAKE 1 TABLET BY MOUTH EVERY DAY AT BEDTIME 08/17/2016 12/05/2016 Inactive Generic For:TOPAMAX 25MG 08/17/2016 2:14:37 PM hydrocodone 5 mg-acetaminophen 325 mg tablet RxNorm: 717491 1-2 Tablet(s) PO Q6 as needed for pain 08/11/2016 08/28/2016 Inactive hydrocodone 5 mg-acetaminophen 325 mg tablet RxNorm: 631992 1 -2 Tablet(s) PO Q6 as needed for pain 08/11/2016 08/18/2016 Inactive hydrocodone 5 mg-acetaminophen 325 mg tablet RxNorm: 571215 1 Tablet(s) PO Q6 as needed for pain 08/05/2016 08/10/2016 Inactive cyanocobalamin (vit B-12) 1,000 mcg/mL injection solution RxNorm: 637890 Milliliter(s) Inj 08/04/2016 08/04/2016 Inactive Norvasc 10 mg tablet RxNorm: 430866 1 Tablet(s) PO daily 07/26/2016 07/20/2017 Inactive alprazolam 0.25 mg tablet RxNorm: 920094 1 Tablet(s) PO QHS 07/21/2016 09/19/2016 Inactive Norvasc 5 mg tablet RxNorm: 309874 1 Tablet(s) PO daily 07/21/2016 07/25/2016 Inactive levothyroxine 125 mcg tablet RxNorm: 766771 1 Tablet(s) PO daily 07/21/2016 12/11/2017 Inactive cyanocobalamin (vit B-12) 1,000 mcg/mL injection solution RxNorm: 924159 Milliliter(s) Inj 07/21/2016 07/21/2016 Inactive Zoloft 50 mg tablet RxNorm: 000897 Tablet(s) TAKE 1 TABLET BY MOUTH DAILY 07/21/2016 09/13/2016 Inactive Generic For:ZOLOFT 50MG cyanocobalamin (vit B-12) 1,000 mcg/mL injection solution RxNorm: 940002 1 Milliliter(s) Inj 07/05/2016 07/05/2016 Inactive cyanocobalamin (vit B-12) 1,000 mcg/mL injection solution RxNorm: 106055 1 Milliliter(s) Inj 06/22/2016 06/22/2016 Inactive cyanocobalamin (vit B-12) 1,000 mcg/mL injection solution RxNorm: 848310 Milliliter(s) Inj 06/09/2016 06/09/2016 Inactive Aricept 10 mg tablet RxNorm: 524883 1 Tablet(s) PO daily 05/27/2016 05/21/2017 Inactive Mobic 15 mg tablet RxNorm: 910006 1 Tablet(s) PO daily 05/27/2016 05/21/2017 Inactive levothyroxine 125 mcg tablet RxNorm: 218704 1 Tablet(s) PO daily 05/25/2016 07/20/2016 Inactive cyanocobalamin (vit B-12) 1,000 mcg/mL injection solution RxNorm: 831096 1 Milliliter(s) Inj 05/25/2016 05/25/2016 Inactive doxycycline hyclate 100 mg capsule RxNorm: 9024924 1 Capsule(s) PO BID 05/16/2016 05/15/2016 Inactive doxycycline hyclate 100 mg capsule RxNorm: 5615535 1 Capsule(s) PO BID 05/16/2016 05/22/2016 Inactive cyanocobalamin (vit B-12) 1,000 mcg/mL injection solution RxNorm: 805812 Milliliter(s) Inj 05/10/2016 05/10/2016 Inactive cyanocobalamin (vit B-12) 1,000 mcg/mL injection solution RxNorm: 274633 Milliliter(s) Inj 04/26/2016 04/26/2016 Inactive Topamax 25 mg tablet RxNorm: 051484 1 Tablet(s) PO QPM 04/22/2016 08/16/2016 Inactive cyanocobalamin (vit B-12) 1,000 mcg/mL injection solution RxNorm: 000732 Milliliter(s) 1 Milliliter(s) Inj [id number] 04/11/2016 12/31/2017 Inactive liothyronine 5 mcg tablet RxNorm: 878326 1 Tablet(s) PO BID 04/11/2016 09/13/2016 Inactive cyanocobalamin (vit B-12) 1,000 mcg/mL injection solution RxNorm: 416925 Milliliter(s) Inj 04/11/2016 04/11/2016 Inactive cyanocobalamin (vit B-12) 1,000 mcg/mL injection solution RxNorm: 552103 Milliliter(s) Inj 03/31/2016 03/31/2016 Inactive cyanocobalamin (vit B-12) 1,000 mcg/mL injection solution RxNorm: 620225 1 Milliliter(s) Inj 03/15/2016 03/15/2016 Inactive levothyroxine 125 mcg tablet RxNorm: 788567 1 Tablet(s) PO daily 2016 03/03/2016 Inactive levothyroxine 125 mcg tablet RxNorm: 215090 1 Tablet(s) PO daily 2016 05/24/2016 Inactive cyanocobalamin (vit B-12) 1,000 mcg/mL injection solution RxNorm: 849450 Milliliter(s) Inj 02/25/2016 02/25/2016 Inactive cyanocobalamin (vit B-12) 1,000 mcg/mL injection solution RxNorm: 055387 1 Milliliter(s) Inj 02/02/2016 02/02/2016 Inactive sucralfate 1 gram tablet RxNorm: 292473 1 Tablet(s) PO QHS 01/25/2016 No Stop Date Active amiodarone 200 mg tablet RxNorm: 445299 1/2 Tablet(s) PO BID 01/25/2016 05/21/2017 Inactive cyanocobalamin (vit B-12) 1,000 mcg/mL injection solution RxNorm: 318668 Milliliter(s) Inj 01/18/2016 01/18/2016 Inactive cyanocobalamin (vit B-12) 1,000 mcg/mL injection solution RxNorm: 413871 Milliliter(s) Inj 12/29/2015 12/29/2015 Inactive Topamax 25 mg tablet RxNorm: 585743 1 Tablet(s) PO QPM 12/08/2015 04/05/2016 Inactive cyanocobalamin (vit B-12) 1,000 mcg/mL injection solution RxNorm: 667023 Milliliter(s) Inj 12/08/2015 12/08/2015 Inactive Bactrim DS 800 mg-160 mg tablet RxNorm: 054163 1 Tablet(s) PO BID 11/23/2015 11/22/2015 Inactive cyanocobalamin (vit B-12) 1,000 mcg/mL injection solution RxNorm: 161817 Milliliter(s) Inj 11/23/2015 11/23/2015 Inactive Bactrim DS 800 mg-160 mg tablet RxNorm: 220379 1 Tablet(s) PO BID 11/23/2015 11/29/2015 Inactive cyanocobalamin (vit B-12) 1,000 mcg/mL injection solution RxNorm: 548782 Milliliter(s) Inj 11/11/2015 11/11/2015 Inactive amoxicillin 500 mg capsule RxNorm: 243622 1 Capsule(s) PO TID 11/10/2015 11/19/2015 Inactive Zithromax Z-Henrique 250 mg tablet RxNorm: 693757 1 Tablet(s) PO UD 11/10/2015 01/24/2016 Inactive zpack x 1 amoxicillin 500 mg capsule RxNorm: 638425 1 Capsule(s) PO TID 11/10/2015 11/09/2015 Inactive cyanocobalamin (vit B-12) 1,000 mcg/mL injection solution RxNorm: 720569 1 Milliliter(s) Inj 10/29/2015 10/29/2015 Inactive George 3 capsule RxNorm: 1 Capsule(s) PO QAM , 2 Capsules at noon, 1 Capsule QHS 10/13/2015 No Stop Date Active potassium chloride ER 20 mEq tablet,extended release RxNorm: 421853 2 Tablet(s) PO daily at noon 10/13/2015 No Stop Date Active alprazolam 0.25 mg tablet RxNorm: 744325 1 Tablet(s) PO QHS 10/13/2015 07/20/2016 Inactive amiodarone 200 mg tablet RxNorm: 467593 1 Tablet(s) PO BID 10/13/2015 01/24/2016 Inactive cyanocobalamin (vit B-12) 1,000 mcg/mL injection solution RxNorm: 597840 1 Milliliter(s) Inj 10/12/2015 10/12/2015 Inactive Zofran 4 mg tablet RxNorm: 146831 1 Tablet(s) PO daily as needed 10/07/2015 05/24/2016 Inactive Zoloft 50 mg tablet RxNorm: 809980 TAKE 1 TABLET BY MOUTH DAILY 10/05/2015 05/01/2016 Inactive Generic For:ZOLOFT 50MG cyanocobalamin (vit B-12) 1,000 mcg/mL injection solution RxNorm: 040875 1 Milliliter(s) Inj 09/29/2015 09/29/2015 Inactive cyanocobalamin (vit B-12) 1,000 mcg/mL injection solution RxNorm: 361343 1 Milliliter(s) Inj 09/17/2015 09/17/2015 Inactive Norvasc 5 mg tablet RxNorm: 074121 1 Tablet(s) PO daily 09/17/2015 07/20/2016 Inactive liothyronine 5 mcg tablet RxNorm: 229822 1 Tablet(s) PO BID 09/17/2015 03/14/2016 Inactive Zoloft 50 mg tablet RxNorm: 535928 1 Tablet(s) PO daily 09/17/2015 10/04/2015 Inactive buspirone 15 mg tablet RxNorm: 385712 1 Tablet(s) PO BID 09/17/2015 09/10/2016 Inactive buspirone 15 mg tablet RxNorm: 978905 1 Tablet(s) PO BID 09/14/2015 09/16/2015 Inactive Topamax 25 mg tablet RxNorm: 250184 1 Tablet(s) PO QPM 09/03/2015 12/07/2015 Inactive cyanocobalamin (vit B-12) 1,000 mcg/mL injection solution RxNorm: 501984 1 Milliliter(s) Inj 09/03/2015 09/03/2015 Inactive cyanocobalamin (vit B-12) 1,000 mcg/mL injection solution RxNorm: 640929 Milliliter(s) Inj 08/17/2015 08/17/2015 Inactive cyanocobalamin (vit B-12) 1,000 mcg/mL injection solution RxNorm: 698182 Milliliter(s) Inj 08/06/2015 08/06/2015 Inactive levothyroxine 150 mcg tablet RxNorm: 458541 1 Tablet(s) PO daily 07/22/2015 03/03/2016 Inactive Aricept 10 mg tablet RxNorm: 665637 1 Tablet(s) PO daily 07/22/2015 05/26/2016 Inactive Mobic 15 mg tablet RxNorm: 146210 1 Tablet(s) PO daily 07/22/2015 05/26/2016 Inactive cyanocobalamin (vit B-12) 1,000 mcg/mL injection solution RxNorm: 556769 Milliliter(s) Inj 07/22/2015 07/22/2015 Inactive liothyronine 5 mcg tablet RxNorm: 908787 1 Tablet(s) PO BID 07/22/2015 09/16/2015 Inactive cyanocobalamin (vit B-12) 1,000 mcg/mL injection solution RxNorm: 232321 Milliliter(s) Inj 07/08/2015 07/08/2015 Inactive cyanocobalamin (vit B-12) 1,000 mcg/mL injection solution RxNorm: 854722 Milliliter(s) Inj 06/23/2015 06/23/2015 Inactive cyanocobalamin (vit B-12) 1,000 mcg/mL injection solution RxNorm: 480102 1 Milliliter(s) Inj 06/08/2015 06/08/2015 Inactive cyanocobalamin (vit B-12) 1,000 mcg/mL injection solution RxNorm: 716267 Milliliter(s) Inj 05/27/2015 05/27/2015 Inactive Aricept 10 mg tablet RxNorm: 000457 1 Tablet(s) PO daily 05/20/2015 07/21/2015 Inactive Zofran 4 mg tablet RxNorm: 839642 1 Tablet(s) PO daily as needed 05/20/2015 06/18/2015 Inactive alprazolam 0.25 mg tablet RxNorm: 914934 1 Tablet(s) PO BID 05/20/2015 10/12/2015 Inactive Mobic 15 mg tablet RxNorm: 642132 1 Tablet(s) PO daily 05/20/2015 07/21/2015 Inactive tramadol ER 100 mg tablet,extended release 24 hr RxNorm: 376984 1 Tablet(s) PO Q6 as needed 05/13/2015 No Stop Date Active cyanocobalamin (vit B-12) 1,000 mcg/mL injection solution RxNorm: 109661 1 Milliliter(s) Inj 05/12/2015 05/12/2015 Inactive Topamax 25 mg tablet RxNorm: 960933 1 Tablet(s) PO BID (start at one pill at bedtime x 1week then twice daily thereafter) 05/12/2015 09/02/2015 Inactive cyanocobalamin (vit B-12) 1,000 mcg/mL injection kit RxNorm: 781589 kit Inj 04/30/2015 04/30/2015 Inactive cyanocobalamin (vit B-12) 1,000 mcg/mL injection solution RxNorm: 935502 Milliliter(s) Inj 04/16/2015 04/16/2015 Inactive levothyroxine 150 mcg tablet RxNorm: 643035 1 Tablet(s) PO daily 04/08/2015 07/21/2015 Inactive cyanocobalamin (vit B-12) 1,000 mcg/mL injection solution RxNorm: 815248 Milliliter(s) 1 Milliliter(s) Inj [id number] 04/08/2015 04/10/2016 Inactive Cytomel 5 mcg tablet RxNorm: 906174 1 Tablet(s) PO BID 04/08/2015 10/12/2015 Inactive Cytomel 5 mcg tablet RxNorm: 526479 1 Tablet(s) PO BID 04/07/2015 04/07/2015 Inactive Cytomel 5 mcg tablet RxNorm: 022441 1 Tablet(s) PO BID 04/07/2015 04/06/2015 Inactive cyanocobalamin (vit B-12) 1,000 mcg/mL injection solution RxNorm: 573345 Milliliter(s) Inj 04/02/2015 04/02/2015 Inactive cyanocobalamin (vit B-12) 1,000 mcg/mL injection solution RxNorm: 862752 Milliliter(s) Inj 03/18/2015 03/18/2015 Inactive cyanocobalamin (vit B-12) 1,000 mcg/mL injection solution RxNorm: 269890 Milliliter(s) 1 Milliliter(s) Inj F4xqtiy 03/18/2015 04/07/2015 Inactive cyanocobalamin (vit B-12) 1,000 mcg/mL injection solution RxNorm: 721324 1 Milliliter(s) Inj M3ftnhp 03/16/2015 03/17/2015 Inactive cyanocobalamin (vit B-12) 1,000 mcg/mL injection solution RxNorm: 555521 Milliliter(s) Inj 03/03/2015 03/03/2015 Inactive cyanocobalamin (vit B-12) 1,000 mcg/mL injection solution RxNorm: 635749 Milliliter(s) Inj 02/18/2015 02/18/2015 Inactive cyanocobalamin (vit B-12) 1,000 mcg/mL injection solution RxNorm: 909710 Milliliter(s) Inj 02/04/2015 02/04/2015 Inactive cyanocobalamin (vit B-12) 1,000 mcg/mL injection solution RxNorm: 231423 Milliliter(s) Inj 01/22/2015 01/22/2015 Inactive Lac-Hydrin Five 5 % lotion RxNorm: 628376 1 TOP daily 01/13/2015 03/13/2015 Inactive Lac-Hydrin Five 5 % lotion RxNorm: 577710 1 TOP daily 01/13/2015 01/12/2015 Inactive cyanocobalamin (vit B-12) 1,000 mcg/mL injection solution RxNorm: 909354 Milliliter(s) Inj 01/08/2015 01/08/2015 Inactive cyanocobalamin (vit B-12) 1,000 mcg/mL injection solution RxNorm: 446024 Milliliter(s) Inj 12/25/2014 12/25/2014 Inactive levothyroxine 150 mcg tablet RxNorm: 678372 1 Tablet(s) PO daily 12/24/2014 04/07/2015 Inactive tramadol 50 mg tablet RxNorm: 267040 1-2 Tablet(s) PO Q6 as needed 12/17/2014 05/12/2015 Inactive alprazolam 0.25 mg tablet RxNorm: 289686 1 Tablet(s) PO BID 12/17/2014 04/15/2015 Inactive Pradaxa 150 mg capsule RxNorm: 1004185 1 Capsule(s) PO BID 12/16/2014 No Stop Date Active metoprolol tartrate 50 mg tablet RxNorm: 939646 1/2 Tablet(s) PO BID 12/16/2014 09/13/2016 Inactive buspirone 15 mg tablet RxNorm: 451902 1 Tablet(s) PO BID 12/16/2014 09/13/2015 Inactive cyanocobalamin (vit B-12) 1,000 mcg/mL injection solution RxNorm: 558335 1 Milliliter(s) Inj F1kgwmf 12/16/2014 03/15/2015 Inactive cyanocobalamin (vit B-12) 1,000 mcg/mL injection solution RxNorm: 728544 1 Milliliter(s) Inj A6vzjhr 12/16/2014 12/15/2014 Inactive sucralfate 1 gram tablet RxNorm: 922558 Tablet(s) PO QID 12/16/2014 12/10/2015 Inactive cyanocobalamin (vit B-12) 1,000 mcg/mL injection solution RxNorm: 696956 Milliliter(s) Inj 12/10/2014 12/10/2014 Inactive cyanocobalamin (vit B-12) 1,000 mcg/mL injection solution RxNorm: 975925 Milliliter(s) Inj 11/26/2014 11/26/2014 Inactive Zoloft 50 mg tablet RxNorm: 741975 1 Tablet(s) PO daily 11/24/2014 06/21/2015 Inactive Zoloft 50 mg tablet RxNorm: 008214 1 Tablet(s) PO daily 11/24/2014 11/23/2014 Inactive cyanocobalamin (vit B-12) 1,000 mcg/mL injection kit RxNorm: 883813 Milliliter(s) Inj 11/12/2014 11/12/2014 Inactive cyanocobalamin (vit B-12) 1,000 mcg/mL injection solution RxNorm: 603529 Milliliter(s) Inj 10/28/2014 10/28/2014 Inactive [SAVINGS FOR NON-COVERED DRUGS -- BIN:[id number], PCN: [id number], Group: [id number], ID# [id number], Questions: . THIS IS NOT INSURANCE.] promethazine oral RxNorm: 8745 oral No Start Date Active digoxin 125 mcg tablet RxNorm: 035438 Tablet(s) PO every other day No Start Date Active furosemide 40 mg tablet RxNorm: 672237 1 Tablet(s) PO daily No Start Date Active Vitamin D3 5,000 unit tablet RxNorm: 299728 1 Tablet(s) PO daily No Start Date Active erythromycin 250 mg capsule,delayed release RxNorm: 635088 1 Capsule(s) PO AC No Start Date Active Protonix 40 mg tablet,delayed release RxNorm: 170514 1 Tablet(s) PO BID No Start Date Active Cozaar 100 mg tablet RxNorm: 630014 1 Tablet(s) PO daily No Start Date 09/13/2016 Inactive sucralfate 1 gram tablet RxNorm: 597892 Tablet(s) PO QID No Start Date 12/15/2014 Inactive amiodarone 200 mg tablet RxNorm: 714948 2 Tablet(s) PO daily No Start Date 10/13/2015 Inactive buspirone 15 mg tablet RxNorm: 196303 1 Tablet(s) PO daily No Start Date 12/15/2014 Inactive potassium chloride ER 20 mEq tablet,extended release RxNorm: 181343 1 Tablet(s) PO daily No Start Date 10/12/2015 Inactive Prilosec 40 mg capsule,delayed release RxNorm: 937344 1 Capsule(s) PO daily No Start Date 09/02/2015 Inactive George 3 capsule RxNorm: Capsule(s) PO No Start Date 10/12/2015 Inactive alprazolam 0.25 mg tablet RxNorm: 503611 Tablet(s) PO QHS No Start Date 12/16/2014 Inactive levothyroxine 125 mcg tablet RxNorm: 123593 1 Tablet(s) PO daily No Start Date 12/23/2014 Inactive liothyronine 5 mcg tablet RxNorm: 933546 1 Tablet(s) PO BID No Start Date 07/21/2015 Inactive Mobic 15 mg tablet RxNorm: 641386 Tablet(s) PO daily No Start Date 05/19/2015 Inactive Norvasc 5 mg tablet RxNorm: 838400 1 Tablet(s) PO daily No Start Date 09/16/2015 Inactive Zofran 4 mg tablet RxNorm: 847258 1 Tablet(s) PO daily as needed No Start Date 05/19/2015 Inactive Tamiflu 75 mg capsule RxNorm: 207374 1 Capsule(s) PO BID No Start Date 07/23/2017 Inactive tramadol 50 mg tablet RxNorm: 573665 1 Tablet(s) PO daily as needed No Start Date 12/16/2014 Inactive amiodarone 200 mg tablet RxNorm: 429605 1 Tablet(s) PO daily No Start Date 10/12/2015 Inactive Zofran ODT 4 mg disintegrating tablet RxNorm: 719132 1 Tablet(s) PO TID as needed No Start Date 05/02/2017 Inactive albuterol sulfate 2.5 mg/3 mL (0.083 %) solution for nebulization RxNorm: 472065 3 Milliliter(s) INH Q6 PRN No Start Date 09/20/2017 Inactive meclizine 25 mg tablet RxNorm: 008027 Tablet(s) PO as needed No Start Date 05/24/2016 Inactive Pradaxa 150 mg capsule RxNorm: 2538064 1 Capsule(s) PO daily No Start Date 12/15/2014 Inactive metoprolol tartrate 50 mg tablet RxNorm: 125481 1/2 Tablet(s) PO No Start Date 12/15/2014 Inactive Aricept 10 mg tablet RxNorm: 359010 Tablet(s) PO daily No Start Date 05/19/2015 Inactive Calmoseptine 0.44 %-20.6 % topical ointment RxNorm: 469150 1 Application TOP BID and as needed to sore on buttocks No Start Date 09/06/2016 Inactive Zithromax Z-Henrique 250 mg tablet RxNorm: 563428 1 Tablet(s) PO UD No Start Date 11/09/2015 Inactive zpack x 1 Medication Administered Medication Codes Instructions Start Date Status cyanocobalamin (vit B-12) 1,000 mcg/mL injection solution RxNorm: 160807 Milliliter 06/06/2018 No longer Active cyanocobalamin (vit B-12) 1,000 mcg/mL injection solution RxNorm: 676491 Milliliter 05/24/2018 No longer Active cyanocobalamin (vit B-12) 1,000 mcg/mL injection solution RxNorm: 686498 Milliliter 05/09/2018 No longer Active cyanocobalamin (vit B-12) 1,000 mcg/mL injection solution RxNorm: 690720 Milliliter 04/26/2018 No longer Active cyanocobalamin (vit B-12) 1,000 mcg/mL injection solution RxNorm: 163162 Milliliter 04/12/2018 No longer Active cyanocobalamin (vit B-12) 1,000 mcg/mL injection solution RxNorm: 141795 Milliliter 03/30/2018 No longer Active cyanocobalamin (vit B-12) 1,000 mcg/mL injection solution RxNorm: 336433 Milliliter 03/16/2018 No longer Active cyanocobalamin (vit B-12) 1,000 mcg/mL injection solution RxNorm: 726845 Milliliter 03/02/2018 No longer Active cyanocobalamin (vit B-12) 1,000 mcg/mL injection solution RxNorm: 226227 Milliliter 02/08/2018 No longer Active cyanocobalamin (vit B-12) 1,000 mcg/mL injection solution RxNorm: 022665 Milliliter 01/24/2018 No longer Active cyanocobalamin (vit B-12) 1,000 mcg/mL injection solution RxNorm: 193897 Milliliter 01/10/2018 No longer Active cyanocobalamin (vit B-12) 1,000 mcg/mL injection solution RxNorm: 742320 Milliliter 12/27/2017 No longer Active cyanocobalamin (vit B-12) 1,000 mcg/mL injection solution RxNorm: 308251 1Milliliter 12/12/2017 No longer Active cyanocobalamin (vit B-12) 1,000 mcg/mL injection solution RxNorm: 089530 Milliliter 12/01/2017 No longer Active cyanocobalamin (vit B-12) 1,000 mcg/mL injection solution RxNorm: 834239 1Milliliter 11/17/2017 No longer Active cyanocobalamin (vit B-12) 1,000 mcg/mL injection solution RxNorm: 534105 1Milliliter 11/02/2017 No longer Active cyanocobalamin (vit B-12) 1,000 mcg/mL injection solution RxNorm: 538567 1Milliliter 10/20/2017 No longer Active cyanocobalamin (vit B-12) 1,000 mcg/mL injection solution RxNorm: 392997 Milliliter 10/06/2017 No longer Active cyanocobalamin (vit B-12) 1,000 mcg/mL injection solution RxNorm: 174143 Milliliter 09/21/2017 No longer Active Kenalog 40 mg/mL suspension for injection RxNorm: 5208937 Milliliter 09/15/2017 No longer Active cyanocobalamin (vit B-12) 1,000 mcg/mL injection solution RxNorm: 924007 Milliliter 09/07/2017 No longer Active cyanocobalamin (vit B-12) 1,000 mcg/mL injection solution RxNorm: 996214 Milliliter 08/24/2017 No longer Active cyanocobalamin (vit B-12) 1,000 mcg/mL injection solution RxNorm: 158869 Milliliter 07/06/2017 No longer Active cyanocobalamin (vit B-12) 1,000 mcg/mL injection solution RxNorm: 739279 Milliliter 06/20/2017 No longer Active Kenalog 40 mg/mL suspension for injection RxNorm: 8520640 1Milliliter 06/20/2017 No longer Active cyanocobalamin (vit B-12) 1,000 mcg/mL injection solution RxNorm: 310839 Milliliter 06/05/2017 No longer Active cyanocobalamin (vit B-12) 1,000 mcg/mL injection solution RxNorm: 340166 Milliliter 05/25/2017 No longer Active cyanocobalamin (vit B-12) 1,000 mcg/mL injection solution RxNorm: 152254 Milliliter 05/16/2017 No longer Active cyanocobalamin (vit B-12) 1,000 mcg/mL injection solution RxNorm: 388625 1Milliliter 05/01/2017 No longer Active cyanocobalamin (vit B-12) 1,000 mcg/mL injection solution RxNorm: 902539 Milliliter 04/18/2017 No longer Active cyanocobalamin (vit B-12) 1,000 mcg/mL injection solution RxNorm: 912787 Milliliter 04/06/2017 No longer Active cyanocobalamin (vit B-12) 1,000 mcg/mL injection solution RxNorm: 190753 Milliliter 03/22/2017 No longer Active cyanocobalamin (vit B-12) 1,000 mcg/mL injection solution RxNorm: 490281 Milliliter 03/09/2017 No longer Active cyanocobalamin (vit B-12) 1,000 mcg/mL injection solution RxNorm: 897115 Milliliter 02/23/2017 No longer Active cyanocobalamin (vit B-12) 1,000 mcg/mL injection solution RxNorm: 295847 Milliliter 02/09/2017 No longer Active cyanocobalamin (vit B-12) 1,000 mcg/mL injection solution RxNorm: 489115 Milliliter 01/23/2017 No longer Active cyanocobalamin (vit B-12) 1,000 mcg/mL injection solution RxNorm: 637030 Milliliter 01/10/2017 No longer Active cyanocobalamin (vit B-12) 1,000 mcg/mL injection solution RxNorm: 315239 1Milliliter 12/28/2016 No longer Active cyanocobalamin (vit B-12) 1,000 mcg/mL injection solution RxNorm: 141502 Milliliter 12/14/2016 No longer Active cyanocobalamin (vit B-12) 1,000 mcg/mL injection solution RxNorm: 534646 Milliliter 11/24/2016 No longer Active cyanocobalamin (vit B-12) 1,000 mcg/mL injection solution RxNorm: 662596 1Milliliter 11/07/2016 No longer Active cyanocobalamin (vit B-12) 1,000 mcg/mL injection solution RxNorm: 435724 Milliliter 10/24/2016 No longer Active cyanocobalamin (vit B-12) 1,000 mcg/mL injection solution RxNorm: 731435 1Milliliter 09/29/2016 No longer Active cyanocobalamin (vit B-12) 1,000 mcg/mL injection solution RxNorm: 046301 Milliliter 08/29/2016 No longer Active cyanocobalamin (vit B-12) 1,000 mcg/mL injection solution RxNorm: 617282 Milliliter 08/04/2016 No longer Active cyanocobalamin (vit B-12) 1,000 mcg/mL injection solution RxNorm: 769170 Milliliter 07/21/2016 No longer Active cyanocobalamin (vit B-12) 1,000 mcg/mL injection solution RxNorm: 346975 1Milliliter 07/05/2016 No longer Active cyanocobalamin (vit B-12) 1,000 mcg/mL injection solution RxNorm: 115622 1Milliliter 06/22/2016 No longer Active cyanocobalamin (vit B-12) 1,000 mcg/mL injection solution RxNorm: 227730 Milliliter 06/09/2016 No longer Active cyanocobalamin (vit B-12) 1,000 mcg/mL injection solution RxNorm: 193539 1Milliliter 05/25/2016 No longer Active cyanocobalamin (vit B-12) 1,000 mcg/mL injection solution RxNorm: 739629 Milliliter 05/10/2016 No longer Active cyanocobalamin (vit B-12) 1,000 mcg/mL injection solution RxNorm: 447878 Milliliter 04/26/2016 No longer Active cyanocobalamin (vit B-12) 1,000 mcg/mL injection solution RxNorm: 793747 Milliliter 04/11/2016 No longer Active cyanocobalamin (vit B-12) 1,000 mcg/mL injection solution RxNorm: 597759 Milliliter 03/31/2016 No longer Active cyanocobalamin (vit B-12) 1,000 mcg/mL injection solution RxNorm: 690986 1Milliliter 03/15/2016 No longer Active cyanocobalamin (vit B-12) 1,000 mcg/mL injection solution RxNorm: 204204 Milliliter 02/25/2016 No longer Active cyanocobalamin (vit B-12) 1,000 mcg/mL injection solution RxNorm: 610950 1Milliliter 02/02/2016 No longer Active cyanocobalamin (vit B-12) 1,000 mcg/mL injection solution RxNorm: 903185 Milliliter 01/18/2016 No longer Active cyanocobalamin (vit B-12) 1,000 mcg/mL injection solution RxNorm: 544349 Milliliter 12/29/2015 No longer Active cyanocobalamin (vit B-12) 1,000 mcg/mL injection solution RxNorm: 406273 Milliliter 12/08/2015 No longer Active cyanocobalamin (vit B-12) 1,000 mcg/mL injection solution RxNorm: 496958 Milliliter 11/23/2015 No longer Active cyanocobalamin (vit B-12) 1,000 mcg/mL injection solution RxNorm: 438277 Milliliter 11/11/2015 No longer Active cyanocobalamin (vit B-12) 1,000 mcg/mL injection solution RxNorm: 001317 1Milliliter 10/29/2015 No longer Active cyanocobalamin (vit B-12) 1,000 mcg/mL injection solution RxNorm: 972767 1Milliliter 10/12/2015 No longer Active cyanocobalamin (vit B-12) 1,000 mcg/mL injection solution RxNorm: 419430 1Milliliter 09/29/2015 No longer Active cyanocobalamin (vit B-12) 1,000 mcg/mL injection solution RxNorm: 565948 1Milliliter 09/17/2015 No longer Active cyanocobalamin (vit B-12) 1,000 mcg/mL injection solution RxNorm: 157862 1Milliliter 09/03/2015 No longer Active cyanocobalamin (vit B-12) 1,000 mcg/mL injection solution RxNorm: 536343 Milliliter 08/17/2015 No longer Active cyanocobalamin (vit B-12) 1,000 mcg/mL injection solution RxNorm: 092296 Milliliter 08/06/2015 No longer Active cyanocobalamin (vit B-12) 1,000 mcg/mL injection solution RxNorm: 545583 Milliliter 07/22/2015 No longer Active cyanocobalamin (vit B-12) 1,000 mcg/mL injection solution RxNorm: 008304 Milliliter 07/08/2015 No longer Active cyanocobalamin (vit B-12) 1,000 mcg/mL injection solution RxNorm: 724503 Milliliter 06/23/2015 No longer Active cyanocobalamin (vit B-12) 1,000 mcg/mL injection solution RxNorm: 173311 1Milliliter 06/08/2015 No longer Active cyanocobalamin (vit B-12) 1,000 mcg/mL injection solution RxNorm: 978866 Milliliter 05/27/2015 No longer Active cyanocobalamin (vit B-12) 1,000 mcg/mL injection solution RxNorm: 812964 1Milliliter 05/12/2015 No longer Active cyanocobalamin (vit B-12) 1,000 mcg/mL injection kit RxNorm: 979446 kit 04/30/2015 No longer Active cyanocobalamin (vit B-12) 1,000 mcg/mL injection solution RxNorm: 116086 Milliliter 04/16/2015 No longer Active cyanocobalamin (vit B-12) 1,000 mcg/mL injection solution RxNorm: 174319 Milliliter 04/02/2015 No longer Active cyanocobalamin (vit B-12) 1,000 mcg/mL injection solution RxNorm: 549763 Milliliter 03/18/2015 No longer Active cyanocobalamin (vit B-12) 1,000 mcg/mL injection solution RxNorm: 446126 Milliliter 03/03/2015 No longer Active cyanocobalamin (vit B-12) 1,000 mcg/mL injection solution RxNorm: 260641 Milliliter 02/18/2015 No longer Active cyanocobalamin (vit B-12) 1,000 mcg/mL injection solution RxNorm: 247132 Milliliter 02/04/2015 No longer Active cyanocobalamin (vit B-12) 1,000 mcg/mL injection solution RxNorm: 066848 Milliliter 01/22/2015 No longer Active cyanocobalamin (vit B-12) 1,000 mcg/mL injection solution RxNorm: 106757 Milliliter 01/08/2015 No longer Active cyanocobalamin (vit B-12) 1,000 mcg/mL injection solution RxNorm: 201817 Milliliter 12/25/2014 No longer Active cyanocobalamin (vit B-12) 1,000 mcg/mL injection solution RxNorm: 049652 Milliliter 12/10/2014 No longer Active cyanocobalamin (vit B-12) 1,000 mcg/mL injection solution RxNorm: 007836 Milliliter 11/26/2014 No longer Active cyanocobalamin (vit B-12) 1,000 mcg/mL injection kit RxNorm: 709422 Milliliter 11/12/2014 No longer Active cyanocobalamin (vit B-12) 1,000 mcg/mL injection solution RxNorm: 873035 Milliliter 10/28/2014 No longer Active Immunizations Vaccine Codes Date Status Influenza CVX: 141 03/16/2018 completed Influenza CVX: 141 03/22/2017 completed Pneumococcal (Adult) CVX: 33 05/25/2016 completed Influenza CVX: 141 03/15/2016 completed Assessments Condition Codes Effective Dates 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 ICD-9: 266.2 06/06/2018 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 ICD-9: 281.0 05/24/2018 Type 2 diabetes mellitus without complications ICD-10: [...] (3rd IS) 3.20 uIU/mL 02/26/2018 Free T4 [id number] FREE T4 0.99 ng/dL 02/26/2018 Cbc With [...] 28.5 pg 02/26/2018 Cbc With Differential Ord2 Nobles% 10.3 % 02/26/2018 Cbc With Differential Ord2 [...] 1.80 K/ul 02/26/2018 Cbc With Differential Ord2 Nobles ABS# 0.7 K/ul 02/26/2018 Cbc With Differential Ord2 Eos ABS# 0.2 K/ul 02/26/2018 Cbc With Differential Ord2 Baso ABS# 0.0 K/ul 02/26/2018 B12 Rht378 B12 889.00 pg/ml 02/26/2018 Digoxin Ord9 DIGOXIN 0.7 NG/ML 11/23/2017 Comp Metabolic Dnl146 NA 142 mEq/L 11/23/2017 Comp Metabolic Uzr755 K 4.9 mEq/L 11/23/2017 Comp Metabolic Utv752 CL 112 mEq/L 11/23/2017 Comp Metabolic Ads112 CO2 18.0 mEq/L 11/23/2017 Comp Metabolic Lwq531 ANION GAP 17 11/23/2017 Comp Metabolic Aby111 GLUCOSE 123 mg/dL 11/23/2017 Comp Metabolic Wrx267 Creat 1.0 mg/dL 11/23/2017 Comp Metabolic Bke238 eGFR 59 ml/min/1.73m2 11/23/2017 Comp Metabolic Iwf479 BUN 24 mg/dL 11/23/2017 Comp Metabolic Uwn010 B/C Ratio 25.0 Ratio 11/23/2017 Comp Metabolic Fll303 CALCIUM 9.4 mg/dL 11/23/2017 Comp Metabolic Guq393 ALK PHOS 56 U/L 11/23/2017 Comp Metabolic Qtn424 AST(SGOT) 17 U/L 11/23/2017 Comp Metabolic Bii950 ALT(SGPT) 16 U/L 11/23/2017 Comp Metabolic Vpk463 BILI T 0.7 mg/dL 11/23/2017 Comp Metabolic Jyx647 ALBUMIN 3.8 g/dL 11/23/2017 Comp Metabolic Aic268 TPRO 6.2 g/dL 11/23/2017 Comp Metabolic Jgk814 GLOB 2.4 g/dL 11/23/2017 Comp Metabolic Wjd622 A/G Ratio 1.6 Ratio 11/23/2017 Comp Metabolic Mcp451 Osmo 289 mOsmo 11/23/2017 Free T4 Zku854 FREE T4 1.04 ng/dL 11/23/2017 %Hba1C Srt141 % HbA1c 09370- 6 6.4 % 11/23/2017 %Hba1C Iuf530 Gluc Ave 137 mg/dL 11/23/2017 Lipid Ord30 CHOL 179 mg/dL 11/23/2017 Lipid Ord30 HDL 51.0 mg/dl 11/23/2017 Lipid Ord30 TRIG 134 mg/dL 11/23/2017 Lipid Ord30 LDL 101 mg/dL 11/23/2017 Lipid Ord30 C/HDL 3.5 Ratio 11/23/2017 Tsh Ord6 TSH (3rd IS) 1.00 uIU/mL 11/23/2017 Microalbumin Fhx490 MicroAlb <0.7 mg/dL 11/23/2017 Comp Metabolic Vbl388 NA 141 mEq/L 01/23/2017 Comp Metabolic Ely080 K 4.5 mEq/L 01/23/2017 Comp Metabolic Eoq362 CL 107 mEq/L 01/23/2017 Comp Metabolic Hkk779 CO2 21.0 mEq/L 01/23/2017 Comp Metabolic Vjr852 ANION GAP 18 01/23/2017 Comp Metabolic Edo234 GLUCOSE 138 mg/dL 01/23/2017 Comp Metabolic Otm697 Creat 1.0 mg/dL 01/23/2017 Comp Metabolic Agy299 eGFR 56 ml/min/1.73m2 01/23/2017 Comp Metabolic Ffi753 BUN 26 mg/dL 01/23/2017 Comp Metabolic Bue433 B/C Ratio 25.7 Ratio 01/23/2017 Comp Metabolic Pnl735 CALCIUM 9.0 mg/dL 01/23/2017 Comp Metabolic Jit439 ALK PHOS 37 U/L 01/23/2017 Comp Metabolic Gsj956 AST(SGOT) 20 U/L 01/23/2017 Comp Metabolic Vnj197 ALT(SGPT) 25 U/L 01/23/2017 Comp Metabolic Dxq555 BILI T 0.9 mg/dL 01/23/2017 Comp Metabolic Fka869 ALBUMIN 3.8 g/dL 01/23/2017 Comp Metabolic Rdl056 TPRO 6.5 g/dL 01/23/2017 Comp Metabolic Hyt668 GLOB 2.7 g/dL 01/23/2017 Comp Metabolic Hwl449 A/G Ratio 1.4 Ratio 01/23/2017 Comp Metabolic Zgj256 Osmo 288 mOsmo 01/23/2017 Free T4 Iae224 FREE T4 1.05 ng/dL 01/23/2017 %Hba1C Dmv706 % HbA1c 04578- 6 6.1 % 01/23/2017 %Hba1C Qht957 Gluc Ave 128 mg/dL 01/23/2017 Tsh Ord6 hTSH II 1.68 uIU/mL 01/23/2017 Culture Urine [id number] URINE CULTURE SEE NOTES 11/10/2016 Culture Urine [id number] Continued Results 11/10/2016 Urine Culture Ucult Complete [...] Ord15 CALCIUM 9.3 mg/dL 09/29/2016 Free T4 Igy788 FREE T4 0.99 ng/dL 09/07/2016 Cbc With [...] 30.0 pg 09/07/2016 Cbc With Differential Ord2 Nobles% 9.8 % 09/07/2016 Cbc With Differential Ord2 [...] 1.75 K/ul 09/07/2016 Cbc With Differential Ord2 Nobles ABS# 0.6 K/ul 09/07/2016 Cbc With Differential Ord2 Eos ABS# 0.1 K/ul 09/07/2016 Cbc With Differential Ord2 Baso ABS# 0.0 K/ul 09/07/2016 Tsh Ord6 hTSH II 1.41 uIU/mL 09/07/2016 Culture Urine [id number] URINE CULTURE SEE NOTES 06/27/2016 Lipid Ord30 CHOL 196 mg/dL 06/22/2016 Lipid Ord30 HDL 63.0 mg/dl 06/22/2016 Lipid Ord30 TRIG 154 mg/dL 06/22/2016 Lipid Ord30 LDL 102 mg/dL 06/22/2016 Lipid Ord30 C/HDL 3.1 Ratio 06/22/2016 Hepatic Xmp338 ALBUMIN 4.2 g/dL 06/22/2016 Hepatic Kah961 TPRO 7.0 g/dL 06/22/2016 Hepatic Cmi597 GLOB 2.8 g/dL 06/22/2016 Hepatic Ysz607 A/G Ratio 1.5 Ratio 06/22/2016 Hepatic Lwu253 ALK PHOS 54 U/L 06/22/2016 Hepatic Nyf492 ALT(SGPT) 30 U/L 06/22/2016 Hepatic Cnn223 AST(SGOT) 24 U/L 06/22/2016 Hepatic Ons495 BILI T 1.1 mg/dL 06/22/2016 Hepatic Ozd171 BILI D 0.2 mg/dL 06/22/2016 Hepatic Hue921 BILI I 0.9 mg/dL 06/22/2016 Comp Metabolic Fjj387 NA 139 mEq/L 06/14/2016 Comp Metabolic Pfa942 K 4.6 mEq/L 06/14/2016 Comp Metabolic Uws657 CL 108 mEq/L 06/14/2016 Comp Metabolic Fwx819 CO2 22.0 mEq/L 06/14/2016 Comp Metabolic Ntv777 ANION GAP 14 06/14/2016 Comp Metabolic Gku133 GLUCOSE 114 mg/dL 06/14/2016 Comp Metabolic Oey875 Creat 1.2 mg/dL 06/14/2016 Comp Metabolic Aal948 eGFR 48 ml/min/1.73m2 06/14/2016 Comp Metabolic Vtc680 BUN 24 mg/dL 06/14/2016 Comp Metabolic Igv822 B/C Ratio 20.9 Ratio 06/14/2016 Comp Metabolic Rwn997 CALCIUM 9.9 mg/dL 06/14/2016 Comp Metabolic Qas060 ALK PHOS 47 U/L 06/14/2016 Comp Metabolic Jtj315 AST(SGOT) 28 U/L 06/14/2016 Comp Metabolic Aau675 ALT(SGPT) 32 U/L 06/14/2016 Comp Metabolic Vfu541 BILI T 0.9 mg/dL 06/14/2016 Comp Metabolic Zqw345 ALBUMIN 4.1 g/dL 06/14/2016 Comp Metabolic Oyl338 TPRO 6.9 g/dL 06/14/2016 Comp Metabolic Dzo904 GLOB 2.8 g/dL 06/14/2016 Comp Metabolic Yxc952 A/G Ratio 1.5 Ratio 06/14/2016 Comp Metabolic Smg041 Osmo 282 mOsmo 06/14/2016 Tsh Ord6 hTSH II 1.26 uIU/mL 06/14/2016 Free T4 Fpq783 FREE T4 1.09 ng/dL 06/14/2016 Tsh Ord6 hTSH II 0.28 uIU/mL 02/02/2016 Digoxin Ord9 DIGOXIN 0.7 NG/ML 02/02/2016 Free T4 Oak406 FREE T4 1.23 ng/dL 02/02/2016 Hepatic Gok198 ALBUMIN 4.0 g/dL 02/02/2016 Hepatic Jtl863 TPRO 7.0 g/dL 02/02/2016 Hepatic Eie078 GLOB 3.0 g/dL 02/02/2016 Hepatic Uqj806 A/G Ratio 1.3 Ratio 02/02/2016 Hepatic Out093 ALK PHOS 57 U/L 02/02/2016 Hepatic Lar670 ALT(SGPT) 62 U/L 02/02/2016 Hepatic Rlm489 AST(SGOT) 54 U/L 02/02/2016 Hepatic Zgz752 BILI T 0.8 mg/dL 02/02/2016 Hepatic Iih618 BILI D 0.2 mg/dL 02/02/2016 Hepatic Fcn625 BILI I 0.6 mg/dL 02/02/2016 Urine Culture Ucult Preliminary No Growth Day 1 11/25/2015 Urine Culture Ucult Complete No Growth Day 2 11/25/2015 Hepatic Ptk995 ALBUMIN 3.9 g/dL 11/11/2015 Hepatic Ocq251 TPRO 7.0 g/dL 11/11/2015 Hepatic Ehy233 GLOB 3.1 g/dL 11/11/2015 Hepatic Nxc889 A/G Ratio 1.3 Ratio 11/11/2015 Hepatic Cuv160 ALK PHOS 63 U/L 11/11/2015 Hepatic Vdq012 ALT(SGPT) 107 U/L 11/11/2015 Hepatic Qrw256 AST(SGOT) 101 U/L 11/11/2015 Hepatic Jkh029 BILI T 0.6 mg/dL 11/11/2015 Hepatic Pnt807 BILI D 0.1 mg/dL 11/11/2015 Hepatic Nue760 BILI I 0.5 mg/dL 11/11/2015 Comp Metabolic Oau705 NA 138 mEq/L 10/29/2015 Comp Metabolic Pqi486 K 5.0 mEq/L 10/29/2015 Comp Metabolic Grp766 CL 105 mEq/L 10/29/2015 Comp Metabolic Wqx340 CO2 23.0 mEq/L 10/29/2015 Comp Metabolic Fow061 ANION GAP 15 10/29/2015 Comp Metabolic Mip655 GLUCOSE 105 mg/dL 10/29/2015 Comp Metabolic Zuk950 Creat 1.0 mg/dL 10/29/2015 Comp Metabolic Ele769 eGFR 55 ml/min/1.73m2 10/29/2015 Comp Metabolic Iso492 BUN 20 mg/dL 10/29/2015 Comp Metabolic Dsa877 B/C Ratio 19.4 Ratio 10/29/2015 Comp Metabolic Hbk330 CALCIUM 8.8 mg/dL 10/29/2015 Comp Metabolic Mug856 ALK PHOS 56 U/L 10/29/2015 Comp Metabolic Qtl495 AST(SGOT) 66 U/L 10/29/2015 Comp Metabolic Xrq331 ALT(SGPT) 78 U/L 10/29/2015 Comp Metabolic Aya222 BILI T 0.7 mg/dL 10/29/2015 Comp Metabolic Jbj733 ALBUMIN 3.6 g/dL 10/29/2015 Comp Metabolic Lyv509 TPRO 6.6 g/dL 10/29/2015 Comp Metabolic Bvy878 GLOB 3.0 g/dL 10/29/2015 Comp Metabolic Dpp584 A/G Ratio 1.2 Ratio 10/29/2015 Comp Metabolic Vpy424 Osmo 279 mOsmo 10/29/2015 Comp Metabolic Aze665 NA 136 mEq/L 09/03/2015 Comp Metabolic Xfp587 K 4.4 mEq/L 09/03/2015 Comp Metabolic Kbs136 CL 103 mEq/L 09/03/2015 Comp Metabolic Bjp261 CO2 24.0 mEq/L 09/03/2015 Comp Metabolic Chb964 ANION GAP 13 09/03/2015 Comp Metabolic Tud205 GLUCOSE 87 mg/dL 09/03/2015 Comp Metabolic Dje358 Creat 1.1 mg/dL 09/03/2015 Comp Metabolic Fwl087 eGFR 53 ml/min/1.73m2 09/03/2015 Comp Metabolic Lia992 BUN 17 mg/dL 09/03/2015 Comp Metabolic Liw870 B/C Ratio 16.2 Ratio 09/03/2015 Comp Metabolic Zxk321 CALCIUM 9.0 mg/dL 09/03/2015 Comp Metabolic Att743 ALK PHOS 55 U/L 09/03/2015 Comp Metabolic Shf593 AST(SGOT) 83 U/L 09/03/2015 Comp Metabolic Wjj688 ALT(SGPT) 126 U/L 09/03/2015 Comp Metabolic Zpe433 BILI T 0.9 mg/dL 09/03/2015 Comp Metabolic Cqn145 ALBUMIN 3.9 g/dL 09/03/2015 Comp Metabolic Gbu447 TPRO 6.8 g/dL 09/03/2015 Comp Metabolic Qvn068 GLOB 2.9 g/dL 09/03/2015 Comp Metabolic Ule317 A/G Ratio 1.4 Ratio 09/03/2015 Comp Metabolic Ivs361 Osmo 273 mOsmo 09/03/2015 Total T3 Ord42 TT3 0.6 ng/ml 07/09/2015 Tsh Ord6 hTSH II 1.62 uIU/mL 07/09/2015 Total T3 Ord42 TT3 0.5 ng/ml 04/02/2015 Free T4 Jwv032 FREE T4 1.23 ng/dL 04/02/2015 Tsh Ord6 [...] Procedure Codes Date THER/PROPH/DIAG INJ SC/IM CPT-4: 55540 06/06/2018 VITAMIN B12 INJECTION CPT- 4: J3420 06/06/2018 THER/PROPH/DIAG INJ SC/IM CPT-4: 13415 05/24/2018 THER/PROPH/DIAG INJ SC/IM CPT-4: 66210 05/09/2018 THER/PROPH/DIAG INJ SC/IM CPT-4: 15857 04/26/2018 VITAMIN B12 INJECTION CPT- 4: J3420 04/26/2018 THER/PROPH/DIAG INJ SC/IM CPT-4: 54309 04/12/2018 THER/PROPH/DIAG INJ SC/IM CPT-4: 65756 03/30/2018 THER/PROPH/DIAG INJ SC/IM CPT-4: 08484 03/16/2018 VITAMIN B12 INJECTION CPT- 4: J3420 03/16/2018 ADMIN INFLUENZA VIRUS VAC CPT-4: G0008 03/16/2018 FLU VACC PRSV FREE INC ANTIG Formatting Model/CDA Sections, Assigned to/Nga Ojeda CPT-4: 36349Axojchn 03/16/2018 THER/PROPH/DIAG INJ SC/IM CPT-4: 24636 03/02/2018 THER/PROPH/DIAG INJ SC/IM CPT-4: 91940 02/08/2018 THER/PROPH/DIAG INJ SC/IM CPT-4: 14610 01/24/2018 THER/PROPH/DIAG INJ SC/IM CPT-4: 34487 01/10/2018 THER/PROPH/DIAG INJ SC/IM CPT-4: 43096 12/27/2017 VITAMIN B12 INJECTION CPT- 4: J3420 12/27/2017 THER/PROPH/DIAG INJ SC/IM CPT-4: 53176 12/12/2017 THER/PROPH/DIAG INJ SC/IM CPT-4: 19312 12/01/2017 VITAMIN B12 INJECTION CPT- 4: J3420 12/01/2017 THER/PROPH/DIAG INJ SC/IM CPT-4: 56585 11/17/2017 THER/PROPH/DIAG INJ SC/IM CPT-4: 85523 11/02/2017 THER/PROPH/DIAG INJ SC/IM CPT-4: 28384 10/20/2017 THER/PROPH/DIAG INJ SC/IM CPT-4: 48666 10/06/2017 THER/PROPH/DIAG INJ SC/IM CPT-4: 12481 09/21/2017 TRIAMCINOLONE ACET INJ NOS CPT-4: J3301 09/15/2017 THER/PROPH/DIAG INJ SC/IM CPT-4: 81852 09/07/2017 THER/PROPH/DIAG INJ SC/IM CPT-4: 44558 08/24/2017 THER/PROPH/DIAG INJ SC/IM CPT-4: 89042 07/06/2017 THER/PROPH/DIAG INJ SC/IM CPT-4: 38479 06/20/2017 TRIAMCINOLONE ACET INJ NOS CPT-4: J3301 06/20/2017 PPPS, SUBSEQ VISIT CPT- 4: G0439 06/05/2017 THER/PROPH/DIAG INJ SC/IM CPT-4: 87899 06/05/2017 THER/PROPH/DIAG INJ SC/IM CPT-4: 39906 05/25/2017 VITAMIN B12 INJECTION CPT- 4: J3420 05/25/2017 THER/PROPH/DIAG INJ SC/IM CPT-4: 56390 05/16/2017 THER/PROPH/DIAG INJ SC/IM CPT-4: 34873 05/01/2017 THER/PROPH/DIAG INJ SC/IM CPT-4: 93707 04/18/2017 THER/PROPH/DIAG INJ SC/IM CPT-4: 63241 04/06/2017 ADMIN INFLUENZA VIRUS VAC CPT-4: G0008 03/22/2017 FLU VACC PRSV FREE INC ANTIG CPT-4: 88244 03/22/2017 THER/PROPH/DIAG INJ SC/IM CPT-4: 34741 03/09/2017 THER/PROPH/DIAG INJ SC/IM CPT-4: 79148 02/23/2017 THER/PROPH/DIAG INJ SC/IM CPT-4: 36268 02/09/2017 THER/PROPH/DIAG INJ SC/IM CPT-4: 04799 01/23/2017 THER/PROPH/DIAG INJ SC/IM CPT-4: 01011 01/10/2017 THER/PROPH/DIAG INJ SC/IM CPT-4: 43912 12/28/2016 THER/PROPH/DIAG INJ SC/IM CPT-4: 19926 12/14/2016 THER/PROPH/DIAG INJ SC/IM CPT-4: 29881 11/24/2016 URINALYSIS NONAUTO W/O SCOPE CPT-4: 32269 11/07/2016 THER/PROPH/DIAG INJ SC/IM CPT-4: 93115 11/07/2016 THER/PROPH/DIAG INJ SC/IM CPT-4: 19764 10/24/2016 THER/PROPH/DIAG INJ SC/IM CPT-4: 74880 09/29/2016 THER/PROPH/DIAG INJ SC/IM CPT-4: 08099 08/29/2016 THER/PROPH/DIAG INJ SC/IM CPT-4: 64245 08/04/2016 THER/PROPH/DIAG INJ SC/IM CPT-4: 10278 07/21/2016 THER/PROPH/DIAG INJ SC/IM CPT-4: 82159 07/05/2016 THER/PROPH/DIAG INJ SC/IM CPT-4: 58305 06/22/2016 URINALYSIS NONAUTO W/O SCOPE CPT-4: 22208 06/22/2016 THER/PROPH/DIAG INJ SC/IM CPT-4: 25306 06/09/2016 PPPS, SUBSEQ VISIT CPT- 4: G0439 05/30/2016 ADMIN PNEUMOCOCCAL VACCINE SNOMED CT: 96253439 CPT-4: G0009 05/25/2016 Pneumococcal Polysaccharide Vaccine, 23-Valent, Ad CPT-4: 54861 05/25/2016 THER/PROPH/DIAG INJ SC/IM CPT-4: 98074 05/25/2016 THER/PROPH/DIAG INJ SC/IM CPT-4: 47872 05/10/2016 TRIAMCINOLONE ACET INJ NOS CPT-4: J3301 04/26/2016 VITAMIN B12 INJECTION CPT- 4: J3420 04/26/2016 THER/PROPH/DIAG INJ SC/IM CPT-4: 08034 04/11/2016 THER/PROPH/DIAG INJ SC/IM CPT-4: 49003 03/31/2016 ADMIN INFLUENZA VIRUS VAC CPT-4: G0008 03/15/2016 FLU VACC 4 STEPHANIE [address] YRS PLUS IM SNOMED CT: 88586723 CPT-4: 87413 03/15/2016 THER/PROPH/DIAG INJ SC/IM CPT-4: 36152 02/25/2016 THER/PROPH/DIAG INJ SC/IM CPT-4: 10055 02/02/2016 THER/PROPH/DIAG INJ SC/IM CPT-4: 63699 01/18/2016 VITAMIN B12 INJECTION CPT- 4: J3420 12/29/2015 THER/PROPH/DIAG INJ SC/IM CPT-4: 04716 12/29/2015 THER/PROPH/DIAG INJ SC/IM CPT-4: 07799 12/08/2015 THER/PROPH/DIAG INJ SC/IM CPT-4: 22463 11/23/2015 URINALYSIS NONAUTO W/O SCOPE CPT-4: 95719 11/23/2015 THER/PROPH/DIAG INJ SC/IM CPT-4: 52988 11/11/2015 THER/PROPH/DIAG INJ SC/IM CPT-4: 63525 10/29/2015 THER/PROPH/DIAG INJ SC/IM CPT-4: 35636 10/12/2015 VITAMIN B12 INJECTION CPT- 4: J3420 10/12/2015 THER/PROPH/DIAG INJ SC/IM CPT-4: 18336 09/29/2015 THER/PROPH/DIAG INJ SC/IM CPT-4: 12223 09/17/2015 THER/PROPH/DIAG INJ SC/IM CPT-4: 40702 09/03/2015 THER/PROPH/DIAG INJ SC/IM CPT-4: 76267 08/17/2015 THER/PROPH/DIAG INJ SC/IM CPT-4: 52223 08/06/2015 THER/PROPH/DIAG INJ SC/IM CPT-4: 05579 07/22/2015 THER/PROPH/DIAG INJ SC/IM CPT-4: 49187 07/08/2015 THER/PROPH/DIAG INJ SC/IM CPT-4: 43847 06/23/2015 THER/PROPH/DIAG INJ SC/IM CPT-4: 61665 06/08/2015 THER/PROPH/DIAG INJ SC/IM CPT-4: 69574 05/27/2015 DESTRUCT PREMALG LESION CPT-4: 04501 05/19/2015 DESTRUCT PREMALG LES 2-14 CPT-4: 99765 05/19/2015 THER/PROPH/DIAG INJ SC/IM CPT-4: 30159 05/12/2015 VITAMIN B12 INJECTION CPT- 4: J3420 05/12/2015 THER/PROPH/DIAG INJ SC/IM CPT-4: 50639 04/30/2015 VITAMIN B12 INJECTION CPT- 4: J3420 04/30/2015 THER/PROPH/DIAG INJ SC/IM CPT-4: 55487 04/16/2015 THER/PROPH/DIAG INJ SC/IM CPT-4: 19572 04/02/2015 VITAMIN B12 INJECTION CPT- 4: J3420 04/02/2015 THER/PROPH/DIAG INJ SC/IM CPT-4: 45333 03/18/2015 THER/PROPH/DIAG INJ SC/IM CPT-4: 49224 03/03/2015 THER/PROPH/DIAG INJ SC/IM CPT-4: 29381 02/18/2015 THER/PROPH/DIAG INJ SC/IM CPT-4: 01424 02/04/2015 VITAMIN B12 INJECTION CPT- 4: J3420 02/04/2015 THER/PROPH/DIAG INJ SC/IM CPT-4: 55166 01/22/2015 THER/PROPH/DIAG INJ SC/IM CPT-4: 99355 01/08/2015 VITAMIN B12 INJECTION CPT- 4: J3420 01/08/2015 THER/PROPH/DIAG INJ SC/IM CPT-4: 96419 12/25/2014 VITAMIN B12 INJECTION CPT- 4: J3420 12/25/2014 THER/PROPH/DIAG INJ SC/IM CPT-4: 02805 12/10/2014 VITAMIN B12 INJECTION CPT- 4: J3420 12/10/2014 THER/PROPH/DIAG INJ SC/IM CPT-4: 89715 11/26/2014 VITAMIN B12 INJECTION CPT- 4: J3420 11/26/2014 THER/PROPH/DIAG INJ SC/IM CPT-4: 30092 11/12/2014 VITAMIN B12 INJECTION CPT- 4: J3420 11/12/2014 THER/PROPH/DIAG INJ SC/IM CPT-4: 91501 10/28/2014 Vital Signs Date Vital 05/03/2018 Blood Pressure 1: 140/70 Code: 8480-6 BMI: 26.0 Code: 49982-7 Heart Rate 1: 70 bpm Height: 5'6" SpO2: 94% Weight: 161 lbs 04/26/2018 Height: 5'6" 02/26/2018 Blood Pressure 1: 130/72 Code: 8480-6 BMI: 27.9 Code: 84542-3 Heart Rate 1: 72 bpm Height: 5'6" SpO2: 93% Weight: 173 lbs 12/12/2017 Blood Pressure 1: 126/74 Code: 8480-6 BMI: 27.4 Code: 88327-4 Heart Rate 1: 83 bpm Height: 5'6" SpO2: 98% Weight: 170 lbs 12/04/2017 Blood Pressure 1: 104/68 Code: 8480-6 BMI: 28.2 Code: 61174-3 Heart Rate 1: 85 bpm Height: 5'6" SpO2: 95% Weight: 175 lbs 11/20/2017 Blood Pressure 1: 130/68 Code: 8480-6 BMI: 28.4 Code: 56469-5 Heart Rate 1: 80 bpm Height: 5'6" SpO2: 99% Weight: 176 lbs 11/02/2017 Height: 5'6" 09/15/2017 Blood Pressure 1: 134/74 Code: 8480-6 BMI: 28.4 Code: 24049-4 Heart Rate 1: 88 bpm Height: 5'6" SpO2: 98% Weight: 176 lbs 09/07/2017 Blood Pressure 1: 124/64 Code: 8480-6 Heart Rate 1: 90 bpm Height: SpO2: 97% Weight: 08/30/2017 Blood Pressure 1: 140/76 Code: 8480-6 BMI: 28.4 Code: 42557-1 Heart Rate 1: 90 bpm Height: 5'6" SpO2: 94% Weight: 176 lbs 07/06/2017 Blood Pressure 1: 132/66 Code: 8480-6 BMI: 29.4 Code: 05034-2 Heart Rate 1: 85 bpm Height: 5'6" SpO2: 97% Weight: 182 lbs 06/20/2017 Blood Pressure 1: 134/86 Code: 8480-6 Heart Rate 1: 90 bpm Height: SpO2: 98% Weight: 06/05/2017 BMI: 29.1 Code: 32344-4 Height: 5'6" Weight: 180 lbs 05/25/2017 Blood Pressure 1: 126/76 Code: 8480-6 BMI: 29.1 Code: 43630-7 Heart Rate 1: 77 bpm Height: 5'6" SpO2: 97% Weight: 180 lbs 03/23/2017 Blood Pressure 1: 142/84 Code: 8480-6 BMI: 29.1 Code: 59547-6 Heart Rate 1: 91 bpm Height: 5'6" SpO2: 97% Weight: 180 lbs 01/23/2017 Blood Pressure 1: 150/90 Code: 8480-6 BMI: 29.9 Code: 38359-6 Heart Rate 1: 81 bpm Height: 5'6" SpO2: 97% Weight: 185 lbs 11/02/2016 Blood Pressure 1: 148/78 Code: 8480-6 BMI: 29.7 Code: 55853-4 Heart Rate 1: 87 bpm Height: 5'6" SpO2: 97% Weight: 184 lbs 09/29/2016 Blood Pressure 1: 128/78 Code: 8480-6 BMI: 29.7 Code: 54191-9 Heart Rate 1: 78 bpm Height: 5'6" SpO2: 98% Weight: 184 lbs 07/26/2016 Blood Pressure 1: 138/72 Code: 8480-6 BMI: 30.0 Code: 87744-2 Heart Rate 1: 85 bpm Height: 5'6" SpO2: 97% Weight: 186 lbs 05/30/2016 Blood Pressure 1: 13276 Code: 8480-6 BMI: 30.0 Code: 37388-2 Heart Rate 1: 80 bpm Height: 5'6" SpO2: 98% Waist Measure (cm): 99 cm Weight: 186 lbs 05/25/2016 Blood Pressure 1: 13276 Code: 8480-6 BMI: 30.0 Code: 75089-7 Heart Rate 1: 80 bpm Height: 5'6" SpO2: 96% Weight: 186 lbs 02/25/2016 Blood Pressure 1: 110/64 Code: 8480-6 Heart Rate 1: 82 bpm Height: SpO2: 96% Weight: 01/25/2016 Blood Pressure 1: 118/70 Code: 8480-6 BMI: 30.0 Code: 59931-2 Heart Rate 1: 78 bpm Height: 5'6" SpO2: 97% Weight: 186 lbs 11/11/2015 Blood Pressure 1: 128/82 Code: 8480-6 BMI: 29.2 Code: 96722-9 Heart Rate 1: 86 bpm Height: 5'6" SpO2: 96% Temperature: 36.4 (C) / 97.6 (F) Weight: 181 lbs 10/12/2015 Blood Pressure 1: 118/70 Code: 8480-6 BMI: 29.2 Code: 40767-1 Heart Rate 1: 81 bpm Height: 5'6" SpO2: 95% Weight: 181 lbs 09/03/2015 Blood Pressure 1: 138/78 Code: 8480-6 BMI: 29.9 Code: 90319-1 Heart Rate 1: 88 bpm Height: 5'6" SpO2: 97% Weight: 185 lbs 05/19/2015 Blood Pressure 1: 146/78 Code: 8480-6 BMI: 30.0 Code: 99530-2 Heart Rate 1: 66 bpm Height: 5'6" SpO2: 97% Weight: 186 lbs 05/12/2015 Blood Pressure 1: 120/70 Code: 8480-6 BMI: 29.9 Code: 68136-3 Heart Rate 1: 89 bpm Height: 5'6" SpO2: 95% Weight: 185 lbs 01/13/2015 Blood Pressure 1: 140/90 Code: 8480-6 BMI: 30.3 Code: 54752-8 Heart Rate 1: 84 bpm Height: 5'6" SpO2: 95% Weight: 188 lbs 12/16/2014 Blood Pressure 1: 140/82 Code: 8480-6 BMI: 29.5 Code: 04453-4 Heart Rate 1: 86 bpm Height: 5'6" [...] data Encounters Encounter Performer Location Codes Date ([id number]) [id number] EST. PATIENT, LEVEL IV Diagnosis: Essential (primary) hypertension[ICD10: I10] Diagnosis: Type 2 diabetes mellitus without complications[ICD10: E11.9] [facility] CPT-4: 47585 05/03/2018 ([id number]) 79304 EST. PATIENT, LEVEL III Diagnosis: Pain in left shoulder[ICD10: M25.512] Diagnosis: Pain in right shoulder[ICD10: M25.511] [facility] CPT-4: 68435 02/26/2018 [id number]) 95806 EST. PATIENT, LEVEL III Diagnosis: Nausea[ICD10: R11.0] Diagnosis: Cough[ICD10: R05] Diagnosis: 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 factor deficiency[ICD10: D51.0] [facility] CPT-4: 89973 12/12/2017 [id number]) 83566 EST. PATIENT, LEVEL IV Diagnosis: Acute bronchitis due to Hemophilus influenzae[ICD10: J20.1] Diagnosis: Cough[ICD10: R05] [facility] CPT-4: 84494 12/04/2017 ([id number]) 07668 EST. PATIENT, LEVEL IV Diagnosis: Essential (primary) hypertension[ICD10: I10] Diagnosis: Cough[ICD10: R05] Diagnosis: Chronic atrial fibrillation[ICD10: I48.2] Yarely Vega MD, [facility] CPT-4: 41898 11/20/2017 ([id number]) 30676 EST. PATIENT, LEVEL III Diagnosis: Cough[ICD10: R05] Diagnosis: Acute upper respiratory infection, unspecified[ICD10: J06.9] Janet Vega MD, [facility] CPT-4: 61716 09/15/2017 [id number] EST. PATIENT, LEVEL III Diagnosis: Laceration without foreign body of right forearm, initial encounter[ICD10: S51.811A] Diagnosis: Other vitamin B12 deficiency anemias[ICD10: D51.8] Brianna Vega MD, [facility] CPT-4: 74737 09/07/2017 ([id number]) 14680 EST. PATIENT, LEVEL IV Diagnosis: Chronic atrial fibrillation[ICD10: I48.2] Diagnosis: Other allergic rhinitis[ICD10: J30.89] Diagnosis: Encounter for therapeutic drug level monitoring[ICD10: Z51.81] [facility]ly [facility] MD, [facility] CPT-4: 08592 08/30/2017 ([id number]) 59524 EST. PATIENT, LEVEL IV Diagnosis: Atrophy of thyroid (acquired)[ICD10: E03.4] Diagnosis: Cough[ICD10: R05] Diagnosis: Laceration without foreign body of left forearm, initial encounter[ICD10: S51.812A] Diagnosis: Candidiasis of skin and nail[ICD10: B37.2] Diagnosis: Other vitamin B12 deficiency anemias[ICD10: D51.8] Diagnosis: Slow transit constipation[ICD10: K59.01] Y[facility]ly [facility]ega MD, [facility] CPT-4: 47950 07/06/2017 28249 EST. PATIENT, LEVEL III Diagnosis: Other vitamin B12 deficiency anemias[ICD10: D51.8] Diagnosis: Acute laryngopharyngitis[ICD10: J06.0] Diagnosis: Other allergic rhinitis[ICD10: J30.89] Brianna Vega MD, [facility] CPT- 4: 37985 06/20/2017 ([id number]) 81412 EST. PATIENT, LEVEL IV Diagnosis: Essential (primary) hypertension[ICD10: I10] Diagnosis: Chronic atrial fibrillation[ICD10: I48.2] Diagnosis: Atrophy of thyroid (acquired)[ICD10: E03.4] Diagnosis: 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 factor deficiency[ICD10: D51.0] Yarely Vega MD, [facility] CPT-4: 09453 05/25/2017 ([id number]) 74418 EST. 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 PATIENT, LEVEL IV Diagnosis: Type 2 diabetes mellitus without complications[ICD10: E11.9] Diagnosis: Essential (primary) hypertension[ICD10: I10] Diagnosis: Headache[ICD10: R51] Diagnosis: Atrophy of thyroid (acquired)[ICD10: E03.4] Diagnosis: Vitamin B12 deficiency anemia, unspecified[ICD10: D51.9] Yarely [facility] MD, [facility] CPT-4: 63060 01/23/2017 18202 EST. PATIENT, LEVEL III Diagnosis: Low back pain[ICD10: M54.5] Diagnosis: Pain in thoracic spine[ICD10: M54.6] [facility] CPT- 4: 16191 11/02/2016 ([id number]) 57032 EST. PATIENT, LEVEL IV Diagnosis: Essential (primary) hypertension[ICD10: I10] Diagnosis: Other vitamin B12 deficiency anemias[ICD10: D51.8] Diagnosis: Generalized abdominal pain[ICD10: R10.84] Yarely Vega MD, [facility] CPT-4: 25860 09/29/2016 ([id number]) 35462 EST. PATIENT, LEVEL IV Diagnosis: Essential (primary) hypertension[ICD10: I10] Yarely Vega MD, [facility] CPT-4: 77945 07/26/2016 ([id number]) 43485 EST. PATIENT, LEVEL IV Diagnosis: Benign lipomatous neoplasm of skin and subcutaneous tissue of right leg[ICD10: D17.23] Diagnosis: Pain in right ankle and joints of right foot[ICD10: M25.571] Diagnosis: Encounter for immunization[ICD10: Z23] Diagnosis: Vitamin B12 deficiency anemia, unspecified[ICD10: D51.9] Yarely Vega MD, [facility] CPT-4: 04707 05/25/2016 94519 EST. PATIENT, LEVEL III Diagnosis: Other chest pain[ICD10: R07.89] Diagnosis: Other vitamin B12 deficiency anemias[ICD10: D51.8] Brianna Vega MD, [facility] CPT-4: 28094 02/25/2016 ([id number]) 83989 EST. 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 PATIENT, LEVEL III Diagnosis: Other vitamin B12 deficiency anemias[ICD10: D51.8] Diagnosis: Acute nasopharyngitis [common cold][ICD10: J00] Diagnosis: Other allergic rhinitis[ICD10: J30.89] Brianna Vega MD, [facility] CPT- 4: 21792 11/11/2015 ([id number]) 73541 EST. PATIENT, LEVEL IV Diagnosis: Essential tremor[ICD10: G25.0] Diagnosis: Chronic fatigue, unspecified[ICD10: R53.82] Diagnosis: Other hypersomnia[ICD10: G47.19] Diagnosis: Essential (primary) hypertension[ICD10: I10] Yarely Vega MD, [facility] CPT-4: 31957 10/12/2015 ([id number]) 09457 EST. PATIENT, LEVEL IV Diagnosis: Essential (primary) hypertension[ICD10: I10] Diagnosis: Chronic atrial fibrillation[ICD10: I48.2] Diagnosis: Abnormal levels of other serum enzymes[ICD10: R74.8] Diagnosis: Type 2 diabetes mellitus without complications[ICD10: E11.9] Diagnosis: Vitamin B12 deficiency anemia, unspecified[ICD10: D51.9] Yarely Vega MD, [facility] CPT-4: 19805 09/03/2015 ([id number]) 86504 EST. PATIENT, LEVEL III Diagnosis: Nausea[ICD10: R11.0] Diagnosis: Essential tremor[ICD10: G25.0] Diagnosis: Actinic keratosis[ICD10: L57.0] Yarely Vega MD, [facility] CPT-4: 98716 05/19/2015 ([id number]) 04355 EST. PATIENT, LEVEL IV Diagnosis: Vitamin B12 deficiency anemia, unspecified[ICD10: D51.9] Diagnosis: Chronic atrial fibrillation[ICD10: I48.2] Diagnosis: Headache[ICD10: R51] Diagnosis: Chronic fatigue, unspecified[ICD10: R53.82] Diagnosis: Cervicalgia[ICD10: M54.2] Yarely Vega MD, [facility] CPT-4: 83328 05/12/2015 ([id number]) 00822 EST. PATIENT, LEVEL IV Diagnosis: ESSENTIAL HYPERTENSION[ICD9: 401.9] Diagnosis: Afib[ICD9: 427.31] Diagnosis: Anxiety[ICD9: 300.00] Diagnosis: Insomnia[ICD9: 780.52] Yarely Vega MD, [facility] CPT-4: 55813 01/13/2015 ([id number]) OFFICE VISIT, NEW - LEVEL 4 Diagnosis: Hypothyroidism[ICD9: 244.9] Diagnosis: DIABETES TYPE II[ICD9: 250.00] Diagnosis: ESSENTIAL HYPERTENSION[ICD9: 401.9] Diagnosis: Afib[ICD9: 427.31] Diagnosis: Anxiety[ICD9: 300.00] Diagnosis: B12 deficiency[ICD9: 266.2] Janet Vega MD, [facility] CPT-4: 07917 12/16/2014 Plan of Care Planned Activity Notes Codes Status Date Appointment: [phone] (30 min) Complex 06/07/2018 Appointment: Injection 06/06/2018 Patient Education: Patient Medication Summary Completed 06/06/2018 Appointment: [phone] (15 min) Moderate 05/31/2018 Appointment: Injection [...] flonase 05/03/2018 Appointment: [phone] ([facility] min) Moderate 05/03/2018 Patient Education: [...] intervention. 02/26/2018 Appointment: Yarely Vega WPtel: [phone] [facility] (15 min) Moderate 02/26/2018 Patient Education: Patient Medication Summary Completed 02/26/2018 Care Plan: Referral Order SNOMED-CT : [id number] Pending 02/26/2018 Appointment: Injection 02/08/2018 Patient Education: Patient Medication Summary Completed 02/08/2018 Appointment: Injection 01/24/2018 Patient Education: Patient Medication Summary Completed 01/24/2018 Appointment: Injection 01/10/2018 Patient Education: Patient Medication Summary Completed 01/10/2018 Appointment: Injection 12/27/2017 Patient Education: Patient Medication Summary Completed 12/27/2017 Appointment: Yarely Vega WPtel: [facility] (15 min) Moderate 12/26/2017 Visit Plan: Anjxuf-lmjppoctu-fwvvkycl protonix-follow up with Dr Navarro as scheduled Cough-recent bronchitis-symptoms improved-call if symptoms do not completely resolve 12/12/2017 Appointment: Janet Fam WPtel: [phone] [place] (15 min) Moderate 12/12/2017 Patient Education: Patient Medication Summary Completed 12/12/2017 Visit Plan: Bronchitis - acute case of bronchitis identified. Pt has been given antibiotics, breathing treatments as appropriate, and pt has been instructed to call if symptoms are not improved, or if symptoms acutely worsen. Cough - rx for antibiotics as well as cough medication. 12/04/2017 Appointment: Yarely Vega WPtel: [phone] [facility] [place] (15 min) Moderate 12/04/2017 Patient [...] Fatigue/malaise -Pt was advsied to ask the Steward/Stewardess Night the following: ask the heart doctor if [...] becoming uncontrolled. 11/20/2017 Appointment: Yarely Vega WPtel: [facility] (15 min) Moderate 11/20/2017 Patient Education: [...] any worse. 09/15/2017 Appointment: Janet Fam WPtel: [phone] [place] (15 min) Moderate 09/15/2017 Patient Education: Patient Medication Summary Completed 09/15/2017 Appointment: Yarely Vega WPtel: [facility] [place] (15 min) Moderate 09/11/2017 Visit Plan: Skin tear and Cellulitis - The patient was instructed in appropriate wound care. The patient was instructed to use the antibiotic ointment as per RX. The patient is to call for any change in symptoms, increase in size of the lesion, increase in pain, worsening redness, warmth, discharge. 09/07/2017 App[facility]ment[phone] ([facility] min) Simple 09/07/2017 Patient Education: Patient Medication Summary Completed 09/07/2017 Visit Plan: Lipoma - left ankle - talk to dr. barnes about possible surgery/laser for treatment of lipoma. Fatigue/malaise -Pt was advsied to ask the Steward/Stewardess Night the following: ask the heart doctor if there is an alternative to the amiodarone - you may be having side effects from the medication causing you to have pruritus (itching) and feeling like you have body aches, muscle aches, joint pain, fatigue, weight loss (decreased appetite), and pneumonia like symptoms. Congestion - claritin 10mg daily. 08/30/2017 Appointment: Yarely Vega WPtel: [facility] (15 min) Moderate 08/30/2017 Patient Education: Patient Medication Summary Completed 08/30/2017 Appointment: Injection 08/24/2017 Appointment: Yarely Vega WPtel: [id number] (15 min) Moderate 08/24/2017 Patient Education: Patient [...] current treatment plan and mucinex 07/06/2017 Appointment: GaryYarely [facility]Ptel[phone] (15 min) Moderate 07/06/2017 Patient Education: [...] spray. 06/20/2017 App[facility]ment[phone] ([facility] min) Moderate 06/20/2017 Patient Education: [...] Bucky 06/05/2017 Appointment: Bri[facility] Otoole [facility]el[phone] [facility] [facility] - Annual Wellness Visit 06/05/2017 Patient Education: [...] q 3 months or q 6 m [facility] based on previous levels of control. 05/25/2017 Appointment: Y[facility]ega [facility]el[phone] [facility] (15 min) Moderate 05/25/2017 Patient Education: [...] wall. Fatigue - pt to discuss with Steward/Stewardess Night about the possibility of amiodarone causing her fatigue/malaise. 03/23/2017 Appointment: Yare[facility]ega [facility]Ptel[phone] [facility] [place] (15 min) Moderate 03/23/2017 Patient [...] daily. 01/23/2017 Appointment: [facility]ega [facility]Ptel: [phone] [facility] [place] (15 min) Moderate 01/23/2017 Patient [...] improve. 11/02/2016 Appointment: [facility]toole [facility]el[phone] [facility] [place] (15 min) Moderate 11/02/2016 Patient [...] carafate 09/29/2016 Appointment: Yarely Vega WPtel: [phone] [facility] [place] (15 min) Moderate 09/29/2016 Patient Education: Patient Medication Summary Completed 09/29/2016 Appointment: Yarely Vega WPtel: [phone] [facility] [place] (15 min) Moderate 09/27/2016 Appointment: [facility]el[phone] [facility] [place] (15 min) Moderate 09/20/2016 Appointment: Y[facility]ega [facility]Ptel[phone] [facility] [place] (15 min) Moderate 09/20/2016 Patient Education: Patient Medication Summary Completed 09/06/2016 Appointment: Y[facility]ega [facility]Ptel: [phone] [facility] [place] (15 min) Moderate 08/30/2016 Appointment: [...] concerns. 07/26/2016 Appointment: [facility]Ptel[phone] [facility] (15 min) Moderate 07/26/2016 Patient Education: [...] surrogate. 05/30/2016 Appointment: Bri[facility]toole [facility]el[phone] [facility] [facility] - Annual Wellness Visit 05/30/2016 Patient Education: [...] bedtime 05/25/2016 Appointment: Y[facility]Ptel[phone] [facility] (15 min) Moderate 05/25/2016 Patient Education: Patient Medication Summary Completed 05/25/2016 Patient Education: Obesity Completed 05/25/2016 Care Plan: Referral Order SNOMED-CT : [id number] Pending 05/25/2016 Appointment: Injection 05/10/2016 Patient Education: Patient Medication Summary Completed 05/10/2016 Appointment: Injection 04/26/2016 Patient Education: Patient Medication Summary Completed 04/26/2016 Appointment: Injection 04/11/2016 Patient Education: Patient Medication Summary Completed 04/11/2016 Appointment: Injection 03/31/2016 Patient Education: Patient Medication Summary Completed 03/31/2016 Patient Education: Patient Medication Summary Completed 03/22/2016 [facility] Plan[facility] [id number] Pending 03/22/2016 Appointment: Injection 03/15/2016 Patient Education: [...] concerns. 02/25/2016 Appointment: [facility]toole [facility]el[phone] [facility] [place] (15 min) Moderate 02/25/2016 Patient [...] the patients recent sleep study - recommended [place] patient eval of pt - nocturnal [...] the patients recent sleep study - recommended [place] [facility] patient eval of pt - nocturnal [...] case with Faiza's daughter who had left [facility]. She is interested in looking at assisted living facilities for her mom as Faiza's family is for assisted living placement sooner rather than later. 10/12/2015 Appointment: Yare[facility]ega [facility]Ptel: [phone] [facility] (15 min) Moderate 10/12/2015 Patient Education: [...] Completed 08/17/2015 Appointment: Yare[facility]ega WPtel: [phone] [facility] (15 min) Moderate 08/11/2015 Appointment: Injection [...] x 2 05/19/2015 Appointment: Y[facility]ega [facility]Ptel[phone] (30 min) Complex 05/19/2015 Patient Education: [...] prn alprazolam. 01/13/2015 Appointment: Yarely Vega WPtel: [facility] (15 min) Moderate 01/13/2015 Patient Education: [...] current medications. 12/16/2014 Appointment: Janet Fam WPtel: [facility] [place] New Patient 12/16/2014 Patient [...] case with Faiza's daughter who had left [facility]. She is interested in looking [...] D[employer] paperwork for health care surrogate. . Tavkuz-qtnayovfu-jvbajjgc protonix-follow up with Dr Navarro as scheduled [...] Fatigue/malaise -Pt was advsied to ask the Steward/Stewardess Night the following: ask the heart doctor if [...] Fatigue/malaise -Pt was advsied to ask the Steward/Stewardess Night the following: ask the heart doctor if [...] wall. Fatigue - pt to discuss with Steward/Stewardess Night about the possibility of amiodarone causing her [...] the patients recent sleep study - recommended [place] patient eval of pt - nocturnal oxygen [...] the patients recent sleep study - recommended [place] patient eval of pt - nocturnal [...]
--- OUTSIDE RECORDS SUMMARY | 2018-12-05 19:19 | XMS REPORT | CCD ---
Author Author [facility] Organization [facility] Address [address] [place] [address] Phone Care Team Providers Care Scrap Burner Name Role Phone PP Unavailable CCM Unavailable Summary Purpose Interface Exchange Insurance Providers Payer name Policy type / Coverage type Covered green party ID Effective Begin Date Effective End Date WPS Medicare Part B Medicare Part B [id number] Unknown Principal Life Insurance Medicare Part B [id number] Unknown Family history Brother Diagnosis Age At Onset Heart Attack Unknown Mother Diagnosis Age At Onset Hypertension Unknown kidney disease Unknown Stroke Unknown Father Diagnosis Age At Onset Arthritis Unknown Social History Social History Element Codes Description Effective Dates Employment Unknown Retired worked at [employer] 11/20/2017 Marital status Unknown Single 12/16/[address]: 4254200 Former smoker 12/16/[address]: 510003958 Never drinks alcohol 12/16/2014 Allergies, Adverse Reactions, Alerts Substance Reaction Codes Entered Date Inactivated Date Status CODEINE RxNorm: 2670 05/25/2016 No Inactive Date Active ciprofloxacin RxNorm: 74768 12/16/2014 No Inactive Date Active MORPHINE SULFATE [...] Allergy Relief 50 mcg/actuation nasal spray,suspension RxNorm: 7809356 Belden 1 Belden NASAL BID 06/20/2018 10/17/2018 Active cyanocobalamin (vit B-12) 1,000 mcg/mL injection solution RxNorm: 340842 Milliliter(s) Inj 06/06/2018 06/06/2018 Inactive alprazolam 0.25 mg tablet RxNorm: 616303 1 Tablet(s) PO BID 05/25/2018 08/22/2018 Active hydrocodone 5 mg-acetaminophen 325 mg tablet RxNorm: 872036 1-2 Tablet(s) PO Q6 as needed for pain 05/24/2018 06/22/2018 Active cyanocobalamin (vit B-12) 1,000 mcg/mL injection solution RxNorm: 199742 Milliliter(s) Inj 05/24/2018 05/24/2018 Inactive cyanocobalamin (vit B-12) 1,000 mcg/mL injection solution RxNorm: 171509 Milliliter(s) Inj 05/09/2018 05/09/2018 Inactive Claritin 10 mg tablet RxNorm: 353141 TAKE 1 TABLET BY MOUTH ONCE DAILY 05/08/2018 05/02/2019 Active Generic For:CLARITIN 10MG 05/07/2018 9:13:47 AM cyanocobalamin (vit B-12) 1,000 mcg/mL injection solution RxNorm: 406164 INJECT ONE 1 ML EVERY TWO WEEKS 05/03/2018 04/03/2019 Active 05/03/2018 9:13:42 AM Mobic 15 mg tablet RxNorm: 227430 Tablet(s) 1 Tablet(s) PO daily 04/26/2018 04/20/2019 Active buspirone 15 mg tablet RxNorm: 426747 Tablet(s) TAKE 1 TABLET BY MOUTH TWICE DAILY 04/26/2018 04/20/2019 Active Generic For:BUSPAR 15MG 05/31/2017 9:19:20 AM Norvasc 5 mg tablet RxNorm: 418267 Tablet(s) 1 Tablet(s) PO daily 04/26/2018 04/20/2019 Active cyanocobalamin (vit B-12) 1,000 mcg/mL injection solution RxNorm: 717097 Milliliter(s) Inj 04/26/2018 04/26/2018 Inactive hydrocodone 5 mg-acetaminophen 325 mg tablet RxNorm: 820764 1-2 Tablet(s) PO Q6 as needed for pain 04/25/2018 05/23/2018 Inactive cyanocobalamin (vit B-12) 1,000 mcg/mL injection solution RxNorm: 212252 Milliliter(s) Inj 04/12/2018 04/12/2018 Inactive Topamax 25 mg tablet RxNorm: 667708 1 Tablet(s) PO BID 04/09/2018 05/02/2018 Inactive Generic For:TOPAMAX 25MG 12/06/2016 9:15:13 AM Zoloft 50 mg tablet RxNorm: 639612 TAKE 1 TABLET BY MOUTH ONCE DAILY 04/04/2018 12/29/2018 Active Generic For:ZOLOFT 50MG 04/04/2018 9:13:25 AM cyanocobalamin (vit B-12) 1,000 mcg/mL injection solution RxNorm: 148462 Milliliter(s) Inj 03/30/2018 03/30/2018 Inactive levothyroxine 125 mcg tablet RxNorm: 715411 TAKE 1 TABLET BY MOUTH EVERY DAY 03/26/2018 09/21/2018 Active Generic For:SYNTHROID 125MCG TAB 03/26/2018 9:15:59 AM liothyronine 5 mcg tablet RxNorm: 366783 TAKE 1 TABLET BY MOUTH TWICE DAILY 03/26/2018 09/21/2018 Active Generic For:CYTOMEL 5MCG 03/26/2018 9:15:54 AM hydrocodone 5 mg-acetaminophen 325 mg tablet RxNorm: 728226 1-2 Tablet(s) PO Q6 as needed for pain 03/19/2018 04/17/2018 Inactive cyanocobalamin (vit B-12) 1,000 mcg/mL injection solution RxNorm: 701893 Milliliter(s) Inj 03/16/2018 03/16/2018 Inactive Flonase Allergy Relief 50 mcg/actuation nasal spray,suspension RxNorm: 6028244 1 Belden NASAL BID 03/05/2018 06/19/2018 Inactive cyanocobalamin (vit B-12) 1,000 mcg/mL injection solution RxNorm: 899442 Milliliter(s) Inj 03/02/2018 03/02/2018 Inactive alprazolam 0.25 mg tablet RxNorm: 654295 1 Tablet(s) PO BID 02/28/2018 05/27/2018 Inactive cyanocobalamin (vit B-12) 1,000 mcg/mL injection solution RxNorm: 109320 Milliliter(s) Inj 02/08/2018 02/08/2018 Inactive cyanocobalamin (vit B-12) 1,000 mcg/mL injection solution RxNorm: 756996 Milliliter(s) Inj 01/24/2018 01/24/2018 Inactive albuterol sulfate 2.5 mg/3 mL (0.083 %) solution for nebulization RxNorm: 125995 3 Milliliter(s) INH Q6 PRN 01/24/2018 05/02/2018 Inactive Claritin 10 mg tablet RxNorm: 917252 1 Tablet(s) PO daily 01/15/2018 05/07/2018 Inactive cyanocobalamin (vit B-12) 1,000 mcg/mL injection solution RxNorm: 051495 Milliliter(s) Inj 01/10/2018 01/10/2018 Inactive hydrocodone 5 mg-acetaminophen 325 mg tablet RxNorm: 201098 1-2 Tablet(s) PO Q6 as needed for pain 01/09/2018 02/07/2018 Inactive cyanocobalamin (vit B-12) 1,000 mcg/mL injection solution RxNorm: 725636 Milliliter(s) Inj 12/27/2017 12/27/2017 Inactive cyanocobalamin (vit B-12) 1,000 mcg/mL injection solution RxNorm: 274623 1 Milliliter(s) Inj 12/12/2017 12/12/2017 Inactive Zofran ODT 4 mg disintegrating tablet RxNorm: 668821 1 Tablet(s) PO TID as needed 12/08/2017 12/09/2017 Inactive hydrocodone 2.5 mg-guaifenesin 200 mg/5 mL oral solution RxNorm: 893598 5 Milliliter(s) PO 12/04/2017 05/06/2018 Inactive doxycycline hyclate 100 mg capsule RxNorm: 1273999 1 Capsule(s) PO BID 12/04/2017 12/13/2017 Inactive cyanocobalamin (vit B-12) 1,000 mcg/mL injection solution RxNorm: 747526 Milliliter(s) Inj 12/01/2017 12/01/2017 Inactive Flonase Allergy Relief 50 mcg/actuation nasal spray,suspension RxNorm: 9525397 1 [place]den NASAL BID 11/20/2017 2018 Inactive cyanocobalamin (vit B-12) 1,000 mcg/mL injection solution RxNorm: 609395 1 Milliliter(s) Inj 11/17/2017 11/17/2017 Inactive hydrocodone 5 mg-acetaminophen 325 mg tablet RxNorm: 907184 1-2 Tablet(s) PO Q6 as needed for pain 11/16/2017 12/15/2017 Inactive cyanocobalamin (vit B-12) 1,000 mcg/mL injection solution RxNorm: 653280 1 Milliliter(s) Inj 11/02/2017 11/02/2017 Inactive hydrocodone 5 mg-acetaminophen 325 mg tablet RxNorm: 133703 1-2 Tablet(s) PO Q6 as needed for pain 10/25/2017 11/15/2017 Inactive Claritin 10 mg tablet RxNorm: 862365 1 Tablet(s) PO daily 10/25/2017 11/19/2017 Inactive albuterol sulfate 2.5 mg/3 mL (0.083 %) solution for nebulization RxNorm: 678283 3 Milliliter(s) INH Q6 PRN 10/25/2017 01/23/2018 Inactive Claritin 10 mg tablet RxNorm: 262244 1 Tablet(s) PO daily 10/25/2017 10/24/2017 Inactive cyanocobalamin (vit B-12) 1,000 mcg/mL injection solution RxNorm: 783572 1 Milliliter(s) Inj 10/20/2017 10/20/2017 Inactive Zoloft 50 mg tablet RxNorm: 656524 TAKE 1 TABLET BY MOUTH ONCE DAILY 10/13/2017 04/03/2018 Inactive Generic For:ZOLOFT 50MG 10/13/2017 8:59:44 AM cyanocobalamin (vit B-12) 1,000 mcg/mL injection solution RxNorm: 349914 Milliliter(s) Inj 10/06/2017 10/06/2017 Inactive liothyronine 5 mcg tablet RxNorm: 995031 TAKE 1 TABLET BY MOUTH TWICE DAILY 10/03/2017 03/25/2018 Inactive Generic For:CYTOMEL 5MCG 10/03/2017 9:13:38 AM cyanocobalamin (vit B-12) 1,000 mcg/mL injection solution RxNorm: 049583 Milliliter(s) Inj 09/21/2017 09/21/2017 Inactive albuterol sulfate 2.5 mg/3 mL (0.083 %) solution for nebulization RxNorm: 443673 3 Milliliter(s) INH Q6 PRN 09/21/2017 10/24/2017 Inactive hydrocodone 5 mg-acetaminophen 325 mg tablet RxNorm: 386596 1-2 Tablet(s) PO Q6 as needed for pain 09/21/2017 10/20/2017 Inactive Kenalog 40 mg/mL suspension for injection RxNorm: 3502456 Milliliter(s) Inj 09/15/2017 09/15/2017 Inactive Keflex 500 mg capsule RxNorm: 406349 1 Capsule(s) PO TID 09/07/2017 09/16/2017 Inactive Please deliver to patient cyanocobalamin (vit B-12) 1,000 mcg/mL injection solution RxNorm: 484326 Milliliter(s) Inj 09/07/2017 09/07/2017 Inactive Aricept 10 mg tablet RxNorm: 729056 1 Tablet(s) PO daily 09/06/2017 08/31/2018 Active alprazolam 0.25 mg tablet RxNorm: 238859 1 Tablet(s) PO BID 09/06/2017 02/27/2018 Inactive hydrocodone 5 mg-acetaminophen 325 mg tablet RxNorm: 473928 1-2 Tablet(s) PO Q6 as needed for pain 08/24/2017 09/20/2017 Inactive cyanocobalamin (vit B-12) 1,000 mcg/mL injection solution RxNorm: 508466 Milliliter(s) Inj 08/24/2017 08/24/2017 Inactive Norvasc 5 mg tablet RxNorm: 241572 1 Tablet(s) PO daily 08/18/2017 04/25/2018 Inactive nystatin 100,000 unit/gram topical powder RxNorm: 617283 1 Gram(s) TOP QID 08/17/2017 08/26/2017 Inactive hydrocodone 5 mg-acetaminophen 325 mg tablet RxNorm: 420598 1-2 Tablet(s) PO Q6 as needed for pain 07/25/2017 08/23/2017 Inactive Tamiflu 75 mg capsule RxNorm: 204798 1 Capsule(s) PO BID 07/24/2017 12/11/2017 Inactive nystatin 100,000 unit/gram topical powder RxNorm: 458320 1 Gram(s) TOP QID 07/14/2017 07/22/2017 Inactive levothyroxine 125 mcg tablet RxNorm: 701528 Tablet(s) 1 Tablet(s) PO daily 07/10/2017 01/05/2018 Inactive nystatin 100,000 unit/gram topical powder RxNorm: 260460 1 Gram(s) TOP QID 07/06/2017 07/13/2017 Inactive cyanocobalamin (vit B-12) 1,000 mcg/mL injection solution RxNorm: 050777 Milliliter(s) Inj 07/06/2017 07/06/2017 Inactive Kenalog 40 mg/mL suspension for injection RxNorm: 3395799 1 Milliliter(s) Inj 06/20/2017 06/20/2017 Inactive doxycycline hyclate 100 mg capsule RxNorm: 2744346 1 Capsule(s) PO BID 06/20/2017 06/26/2017 Inactive cyanocobalamin (vit B-12) 1,000 mcg/mL injection solution RxNorm: 448957 Milliliter(s) Inj 06/20/2017 06/20/2017 Inactive Keflex 500 mg capsule RxNorm: 235076 1 Capsule(s) PO TID 06/14/2017 06/23/2017 Inactive Please deliver to patient Mobic 15 mg tablet RxNorm: 783862 1 Tablet(s) PO daily 06/14/2017 04/25/2018 Inactive cyanocobalamin (vit B-12) 1,000 mcg/mL injection solution RxNorm: 494676 Milliliter(s) Inj 06/05/2017 06/05/2017 Inactive buspirone 15 mg tablet RxNorm: 722492 TAKE 1 TABLET BY MOUTH TWICE DAILY 05/31/2017 04/25/2018 Inactive Generic For:BUSPAR 15MG 05/31/2017 9:19:20 AM cyanocobalamin (vit B-12) 1,000 mcg/mL injection solution RxNorm: 464496 Milliliter(s) Inj 05/25/2017 05/25/2017 Inactive hydrocodone 5 mg-acetaminophen 325 mg tablet RxNorm: 146792 1-2 Tablet(s) PO Q6 as needed for pain 05/25/2017 06/23/2017 Inactive amiodarone 200 mg tablet RxNorm: 726464 1/2 Tablet(s) PO daily 05/22/2017 No Stop Date Active cardiology decreased to 100mg daily cyanocobalamin (vit B-12) 1,000 mcg/mL injection solution RxNorm: 768620 Milliliter(s) Inj 05/16/2017 05/16/2017 Inactive Zofran ODT 4 mg disintegrating tablet RxNorm: 321528 1 Tablet(s) PO TID as needed 05/03/2017 05/04/2017 Inactive hydrocodone 5 mg-acetaminophen 325 mg tablet RxNorm: 310752 1-2 Tablet(s) PO Q6 as needed for pain 05/01/2017 05/05/2017 Inactive cyanocobalamin (vit B-12) 1,000 mcg/mL injection solution RxNorm: 202968 1 Milliliter(s) Inj 05/01/2017 05/01/2017 Inactive cyanocobalamin (vit B-12) 1,000 mcg/mL injection solution RxNorm: 242606 INJECT ONE 1 ML EVERY TWO WEEKS 04/26/2017 12/04/2018 Active 04/26/2017 9:08:52 AM Zoloft 50 mg tablet RxNorm: 003268 Tablet(s) TAKE 1 TABLET BY MOUTH DAILY 04/25/2017 10/12/2017 Inactive Generic For:ZOLOFT 50MG cyanocobalamin (vit B-12) 1,000 mcg/mL injection solution RxNorm: 188015 Milliliter(s) Inj 04/18/2017 04/18/2017 Inactive liothyronine 5 mcg tablet RxNorm: 474364 1 Tablet(s) PO BID 04/13/2017 10/02/2017 Inactive cyanocobalamin (vit B-12) 1,000 mcg/mL injection solution RxNorm: 790768 Milliliter(s) Inj 04/06/2017 04/06/2017 Inactive hydrocodone 5 mg-acetaminophen 325 mg tablet RxNorm: 368233 1-2 Tablet(s) PO Q6 as needed for pain 04/06/2017 04/10/2017 Inactive cyanocobalamin (vit B-12) 1,000 mcg/mL injection solution RxNorm: 797787 Milliliter(s) Inj 03/22/2017 03/22/2017 Inactive alprazolam 0.25 mg tablet RxNorm: 573247 1 Tablet(s) PO BID 03/17/2017 12/11/2017 Inactive alprazolam 0.25 mg tablet RxNorm: 578529 1 Tablet(s) PO BID 03/16/2017 09/05/2017 Inactive hydrocodone 5 mg-acetaminophen 325 mg tablet RxNorm: 718431 1-2 Tablet(s) PO Q6 as needed for pain 03/09/2017 03/13/2017 Inactive cyanocobalamin (vit B-12) 1,000 mcg/mL injection solution RxNorm: 400859 Milliliter(s) Inj 03/09/2017 03/09/2017 Inactive cyanocobalamin (vit B-12) 1,000 mcg/mL injection solution RxNorm: 115673 Milliliter(s) Inj 02/23/2017 02/23/2017 Inactive cyanocobalamin (vit B-12) 1,000 mcg/mL injection solution RxNorm: 566134 Milliliter(s) Inj 02/09/2017 02/09/2017 Inactive hydrocodone 5 mg-acetaminophen 325 mg tablet RxNorm: 683513 1-2 Tablet(s) PO Q6 as needed for pain 02/08/2017 02/12/2017 Inactive Topamax 25 mg tablet RxNorm: 118316 1 Tablet(s) PO BID 01/23/2017 05/22/2017 Inactive Generic For:TOPAMAX 25MG 12/06/2016 9:15:13 AM cyanocobalamin (vit B-12) 1,000 mcg/mL injection solution RxNorm: 354653 Milliliter(s) Inj 01/23/2017 01/23/2017 Inactive cyanocobalamin (vit B-12) 1,000 mcg/mL injection solution RxNorm: 577666 Milliliter(s) Inj 01/10/2017 01/10/2017 Inactive hydrocodone 5 mg-acetaminophen 325 mg tablet RxNorm: 132320 1-2 Tablet(s) PO Q6 as needed for pain 01/09/2017 01/13/2017 Inactive cyanocobalamin (vit B-12) 1,000 mcg/mL injection solution RxNorm: 683663 1 Milliliter(s) Inj 12/28/2016 12/28/2016 Inactive cyanocobalamin (vit B-12) 1,000 mcg/mL injection solution RxNorm: 205060 Milliliter(s) Inj 12/14/2016 12/14/2016 Inactive buspirone 15 mg tablet RxNorm: 034794 1 Tablet(s) PO BID 12/12/2016 05/30/2017 Inactive hydrocodone 5 mg-acetaminophen 325 mg tablet RxNorm: 344417 1-2 Tablet(s) PO Q6 as needed for pain 12/08/2016 12/12/2016 Inactive Topamax 25 mg tablet RxNorm: 619328 TAKE 1 TABLET BY MOUTH EVERY DAY AT BEDTIME 12/06/2016 01/22/2017 Inactive Generic For:TOPAMAX 25MG 12/06/2016 9:15:13 AM Lac-Hydrin Five 5 % lotion RxNorm: 904781 1 Gram(s) TOP daily 12/02/2016 05/02/2018 Inactive cyanocobalamin (vit B-12) 1,000 mcg/mL injection solution RxNorm: 154326 Milliliter(s) Inj 11/24/2016 11/24/2016 Inactive Ceftin 500 mg tablet RxNorm: 349420 1 Tablet(s) PO BID 11/11/2016 06/13/2017 Inactive Cipro 500 mg tablet RxNorm: 313189 1 Tablet(s) PO BID 11/11/2016 11/10/2016 Inactive Cipro 500 mg tablet RxNorm: 042254 1 Tablet(s) PO BID 11/11/2016 11/11/2016 Inactive cyanocobalamin (vit B-12) 1,000 mcg/mL injection solution RxNorm: 481883 1 Milliliter(s) Inj 11/07/2016 11/07/2016 Inactive hydrocodone 5 mg-acetaminophen 325 mg tablet RxNorm: 415919 1-2 Tablet(s) PO Q6 as needed for pain 11/02/2016 11/06/2016 Inactive cyanocobalamin (vit B-12) 1,000 mcg/mL injection solution RxNorm: 844245 Milliliter(s) Inj 10/24/2016 10/24/2016 Inactive levothyroxine 125 mcg tablet RxNorm: 698650 Tablet(s) 1 Tablet(s) PO daily 10/24/2016 04/21/2017 Inactive liothyronine 5 mcg tablet RxNorm: 976111 1 Tablet(s) PO BID 10/24/2016 04/12/2017 Inactive hydrocodone 5 mg-acetaminophen 325 mg tablet RxNorm: 606962 1-2 Tablet(s) PO Q6 as needed for pain 10/17/2016 10/21/2016 Inactive Keflex 500 mg capsule RxNorm: 197762 1 Capsule(s) PO TID 10/07/2016 10/06/2016 Inactive Keflex 500 mg capsule RxNorm: 930493 1 Capsule(s) PO TID 10/07/2016 10/16/2016 Inactive Please deliver to patient cyanocobalamin (vit B-12) 1,000 mcg/mL injection solution RxNorm: 567291 1 Milliliter(s) Inj 09/29/2016 09/29/2016 Inactive alprazolam 0.25 mg tablet RxNorm: 049496 1 Tablet(s) PO BID 09/20/2016 03/16/2017 Inactive Cozaar 100 mg tablet RxNorm: 211260 1 Tablet(s) PO daily 09/14/2016 No Stop Date Active metoprolol tartrate 50 mg tablet RxNorm: 125626 1/2 Tablet(s) PO BID 09/14/2016 12/12/2016 Inactive Zoloft 50 mg tablet RxNorm: 954903 Tablet(s) TAKE 1 TABLET BY MOUTH DAILY 09/14/2016 03/12/2017 Inactive Generic For:ZOLOFT 50MG liothyronine 5 mcg tablet RxNorm: 827266 1 Tablet(s) PO BID 09/14/2016 10/23/2016 Inactive Calmoseptine 0.44 %-20.6 % topical ointment RxNorm: 098788 1 Application TOP BID and as needed to sore on buttocks 09/07/2016 No Stop Date Active cyanocobalamin (vit B-12) 1,000 mcg/mL injection solution RxNorm: 214841 Milliliter(s) Inj 08/29/2016 08/29/2016 Inactive hydrocodone 5 mg-acetaminophen 325 mg tablet RxNorm: 638885 1-2 Tablet(s) PO Q6 as needed for pain 08/29/2016 10/16/2016 Inactive levothyroxine 125 mcg tablet RxNorm: 778641 1 Tablet(s) PO daily 08/25/2016 10/23/2016 Inactive Topamax 25 mg tablet RxNorm: 856657 TAKE 1 TABLET BY MOUTH EVERY DAY AT BEDTIME 08/17/2016 12/05/2016 Inactive Generic For:TOPAMAX 25MG 08/17/2016 2:14:37 PM hydrocodone 5 mg-acetaminophen 325 mg tablet RxNorm: 107171 1-2 Tablet(s) PO Q6 as needed for pain 08/11/2016 08/28/2016 Inactive hydrocodone 5 mg-acetaminophen 325 mg tablet RxNorm: 963054 1 -2 Tablet(s) PO Q6 as needed for pain 08/11/2016 08/18/2016 Inactive hydrocodone 5 mg-acetaminophen 325 mg tablet RxNorm: 244592 1 Tablet(s) PO Q6 as needed for pain 08/05/2016 08/10/2016 Inactive cyanocobalamin (vit B-12) 1,000 mcg/mL injection solution RxNorm: 555112 Milliliter(s) Inj 08/04/2016 08/04/2016 Inactive Norvasc 10 mg tablet RxNorm: 720311 1 Tablet(s) PO daily 07/26/2016 07/20/2017 Inactive alprazolam 0.25 mg tablet RxNorm: 187343 1 Tablet(s) PO QHS 07/21/2016 09/19/2016 Inactive Norvasc 5 mg tablet RxNorm: 594505 1 Tablet(s) PO daily 07/21/2016 07/25/2016 Inactive levothyroxine 125 mcg tablet RxNorm: 536357 1 Tablet(s) PO daily 07/21/2016 12/11/2017 Inactive cyanocobalamin (vit B-12) 1,000 mcg/mL injection solution RxNorm: 686374 Milliliter(s) Inj 07/21/2016 07/21/2016 Inactive Zoloft 50 mg tablet RxNorm: 555264 Tablet(s) TAKE 1 TABLET BY MOUTH DAILY 07/21/2016 09/13/2016 Inactive Generic For:ZOLOFT 50MG cyanocobalamin (vit B-12) 1,000 mcg/mL injection solution RxNorm: 246860 1 Milliliter(s) Inj 07/05/2016 07/05/2016 Inactive cyanocobalamin (vit B-12) 1,000 mcg/mL injection solution RxNorm: 505374 1 Milliliter(s) Inj 06/22/2016 06/22/2016 Inactive cyanocobalamin (vit B-12) 1,000 mcg/mL injection solution RxNorm: 912170 Milliliter(s) Inj 06/09/2016 06/09/2016 Inactive Aricept 10 mg tablet RxNorm: 456672 1 Tablet(s) PO daily 05/27/2016 05/21/2017 Inactive Mobic 15 mg tablet RxNorm: 649302 1 Tablet(s) PO daily 05/27/2016 05/21/2017 Inactive levothyroxine 125 mcg tablet RxNorm: 318808 1 Tablet(s) PO daily 05/25/2016 07/20/2016 Inactive cyanocobalamin (vit B-12) 1,000 mcg/mL injection solution RxNorm: 315980 1 Milliliter(s) Inj 05/25/2016 05/25/2016 Inactive doxycycline hyclate 100 mg capsule RxNorm: 4082076 1 Capsule(s) PO BID 05/16/2016 05/15/2016 Inactive doxycycline hyclate 100 mg capsule RxNorm: 7626500 1 Capsule(s) PO BID 05/16/2016 05/22/2016 Inactive cyanocobalamin (vit B-12) 1,000 mcg/mL injection solution RxNorm: 935706 Milliliter(s) Inj 05/10/2016 05/10/2016 Inactive cyanocobalamin (vit B-12) 1,000 mcg/mL injection solution RxNorm: 689318 Milliliter(s) Inj 04/26/2016 04/26/2016 Inactive Topamax 25 mg tablet RxNorm: 279867 1 Tablet(s) PO QPM 04/22/2016 08/16/2016 Inactive cyanocobalamin (vit B-12) 1,000 mcg/mL injection solution RxNorm: 445289 Milliliter(s) 1 Milliliter(s) Inj P2dngwk 04/11/2016 12/31/2017 Inactive liothyronine 5 mcg tablet RxNorm: 990927 1 Tablet(s) PO BID 04/11/2016 09/13/2016 Inactive cyanocobalamin (vit B-12) 1,000 mcg/mL injection solution RxNorm: 416958 Milliliter(s) Inj 04/11/2016 04/11/2016 Inactive cyanocobalamin (vit B-12) 1,000 mcg/mL injection solution RxNorm: 190435 Milliliter(s) Inj 03/31/2016 03/31/2016 Inactive cyanocobalamin (vit B-12) 1,000 mcg/mL injection solution RxNorm: 724860 1 Milliliter(s) Inj 03/15/2016 03/15/2016 Inactive levothyroxine 125 mcg tablet RxNorm: 055821 1 Tablet(s) PO daily 2016 03/03/2016 Inactive levothyroxine 125 mcg tablet RxNorm: 925386 1 Tablet(s) PO daily 2016 05/24/2016 Inactive cyanocobalamin (vit B-12) 1,000 mcg/mL injection solution RxNorm: 319837 Milliliter(s) Inj 02/25/2016 02/25/2016 Inactive cyanocobalamin (vit B-12) 1,000 mcg/mL injection solution RxNorm: 752259 1 Milliliter(s) Inj 02/02/2016 02/02/2016 Inactive sucralfate 1 gram tablet RxNorm: 297088 1 Tablet(s) PO QHS 01/25/2016 No Stop Date Active amiodarone 200 mg tablet RxNorm: 374387 1/2 Tablet(s) PO BID 01/25/2016 05/21/2017 Inactive cyanocobalamin (vit B-12) 1,000 mcg/mL injection solution RxNorm: 587858 Milliliter(s) Inj 01/18/2016 01/18/2016 Inactive cyanocobalamin (vit B-12) 1,000 mcg/mL injection solution RxNorm: 750122 Milliliter(s) Inj 12/29/2015 12/29/2015 Inactive Topamax 25 mg tablet RxNorm: 804795 1 Tablet(s) PO QPM 12/08/2015 04/05/2016 Inactive cyanocobalamin (vit B-12) 1,000 mcg/mL injection solution RxNorm: 251243 Milliliter(s) Inj 12/08/2015 12/08/2015 Inactive Bactrim DS 800 mg-160 mg tablet RxNorm: 787231 1 Tablet(s) PO BID 11/23/2015 11/22/2015 Inactive cyanocobalamin (vit B-12) 1,000 mcg/mL injection solution RxNorm: 823188 Milliliter(s) Inj 11/23/2015 11/23/2015 Inactive Bactrim DS 800 mg-160 mg tablet RxNorm: 034570 1 Tablet(s) PO BID 11/23/2015 11/29/2015 Inactive cyanocobalamin (vit B-12) 1,000 mcg/mL injection solution RxNorm: 217791 Milliliter(s) Inj 11/11/2015 11/11/2015 Inactive amoxicillin 500 mg capsule RxNorm: 513832 1 Capsule(s) PO TID 11/10/2015 11/19/2015 Inactive Zithromax Z-Henrique 250 mg tablet RxNorm: 507858 1 Tablet(s) PO UD 11/10/2015 01/24/2016 Inactive zpack x 1 amoxicillin 500 mg capsule RxNorm: 971794 1 Capsule(s) PO TID 11/10/2015 11/09/2015 Inactive cyanocobalamin (vit B-12) 1,000 mcg/mL injection solution RxNorm: 771943 1 Milliliter(s) Inj 10/29/2015 10/29/2015 Inactive Pledger 3 capsule RxNorm: 1 Capsule(s) PO QAM , 2 Capsules at noon, 1 Capsule QHS 10/13/2015 No Stop Date Active potassium chloride ER 20 mEq tablet,extended release RxNorm: 708293 2 Tablet(s) PO daily at noon 10/13/2015 No Stop Date Active alprazolam 0.25 mg tablet RxNorm: 377772 1 Tablet(s) PO QHS 10/13/2015 07/20/2016 Inactive amiodarone 200 mg tablet RxNorm: 672714 1 Tablet(s) PO BID 10/13/2015 01/24/2016 Inactive cyanocobalamin (vit B-12) 1,000 mcg/mL injection solution RxNorm: 909070 1 Milliliter(s) Inj 10/12/2015 10/12/2015 Inactive Zofran 4 mg tablet RxNorm: 003253 1 Tablet(s) PO daily as needed 10/07/2015 05/24/2016 Inactive Zoloft 50 mg tablet RxNorm: 514699 TAKE 1 TABLET BY MOUTH DAILY 10/05/2015 05/01/2016 Inactive Generic For:ZOLOFT 50MG cyanocobalamin (vit B-12) 1,000 mcg/mL injection solution RxNorm: 911556 1 Milliliter(s) Inj 09/29/2015 09/29/2015 Inactive cyanocobalamin (vit B-12) 1,000 mcg/mL injection solution RxNorm: 972896 1 Milliliter(s) Inj 09/17/2015 09/17/2015 Inactive Norvasc 5 mg tablet RxNorm: 301386 1 Tablet(s) PO daily 09/17/2015 07/20/2016 Inactive liothyronine 5 mcg tablet RxNorm: 139098 1 Tablet(s) PO BID 09/17/2015 03/14/2016 Inactive Zoloft 50 mg tablet RxNorm: 118087 1 Tablet(s) PO daily 09/17/2015 10/04/2015 Inactive buspirone 15 mg tablet RxNorm: 761702 1 Tablet(s) PO BID 09/17/2015 09/10/2016 Inactive buspirone 15 mg tablet RxNorm: 051743 1 Tablet(s) PO BID 09/14/2015 09/16/2015 Inactive Topamax 25 mg tablet RxNorm: 579822 1 Tablet(s) PO QPM 09/03/2015 12/07/2015 Inactive cyanocobalamin (vit B-12) 1,000 mcg/mL injection solution RxNorm: 547850 1 Milliliter(s) Inj 09/03/2015 09/03/2015 Inactive cyanocobalamin (vit B-12) 1,000 mcg/mL injection solution RxNorm: 309046 Milliliter(s) Inj 08/17/2015 08/17/2015 Inactive cyanocobalamin (vit B-12) 1,000 mcg/mL injection solution RxNorm: 018728 Milliliter(s) Inj 08/06/2015 08/06/2015 Inactive levothyroxine 150 mcg tablet RxNorm: 503530 1 Tablet(s) PO daily 07/22/2015 03/03/2016 Inactive Aricept 10 mg tablet RxNorm: 906472 1 Tablet(s) PO daily 07/22/2015 05/26/2016 Inactive Mobic 15 mg tablet RxNorm: 022781 1 Tablet(s) PO daily 07/22/2015 05/26/2016 Inactive cyanocobalamin (vit B-12) 1,000 mcg/mL injection solution RxNorm: 698534 Milliliter(s) Inj 07/22/2015 07/22/2015 Inactive liothyronine 5 mcg tablet RxNorm: 093418 1 Tablet(s) PO BID 07/22/2015 09/16/2015 Inactive cyanocobalamin (vit B-12) 1,000 mcg/mL injection solution RxNorm: 836631 Milliliter(s) Inj 07/08/2015 07/08/2015 Inactive cyanocobalamin (vit B-12) 1,000 mcg/mL injection solution RxNorm: 552910 Milliliter(s) Inj 06/23/2015 06/23/2015 Inactive cyanocobalamin (vit B-12) 1,000 mcg/mL injection solution RxNorm: 100166 1 Milliliter(s) Inj 06/08/2015 06/08/2015 Inactive cyanocobalamin (vit B-12) 1,000 mcg/mL injection solution RxNorm: 893640 Milliliter(s) Inj 05/27/2015 05/27/2015 Inactive Aricept 10 mg tablet RxNorm: 267730 1 Tablet(s) PO daily 05/20/2015 07/21/2015 Inactive Zofran 4 mg tablet RxNorm: 058825 1 Tablet(s) PO daily as needed 05/20/2015 06/18/2015 Inactive alprazolam 0.25 mg tablet RxNorm: 023822 1 Tablet(s) PO BID 05/20/2015 10/12/2015 Inactive Mobic 15 mg tablet RxNorm: 161202 1 Tablet(s) PO daily 05/20/2015 07/21/2015 Inactive tramadol ER 100 mg tablet,extended release 24 hr RxNorm: 779934 1 Tablet(s) PO Q6 as needed 05/13/2015 No Stop Date Active cyanocobalamin (vit B-12) 1,000 mcg/mL injection solution RxNorm: 956864 1 Milliliter(s) Inj 05/12/2015 05/12/2015 Inactive Topamax 25 mg tablet RxNorm: 583608 1 Tablet(s) PO BID (start at one pill at bedtime x 1week then twice daily thereafter) 05/12/2015 09/02/2015 Inactive cyanocobalamin (vit B-12) 1,000 mcg/mL injection kit RxNorm: 164004 kit Inj 04/30/2015 04/30/2015 Inactive cyanocobalamin (vit B-12) 1,000 mcg/mL injection solution RxNorm: 893226 Milliliter(s) Inj 04/16/2015 04/16/2015 Inactive levothyroxine 150 mcg tablet RxNorm: 286627 1 Tablet(s) PO daily 04/08/2015 07/21/2015 Inactive cyanocobalamin (vit B-12) 1,000 mcg/mL injection solution RxNorm: 663211 Milliliter(s) 1 Milliliter(s) Inj S4iwibe 04/08/2015 04/10/2016 Inactive Cytomel 5 mcg tablet RxNorm: 073835 1 Tablet(s) PO BID 04/08/2015 10/12/2015 Inactive Cytomel 5 mcg tablet RxNorm: 268151 1 Tablet(s) PO BID 04/07/2015 04/07/2015 Inactive Cytomel 5 mcg tablet RxNorm: 247804 1 Tablet(s) PO BID 04/07/2015 04/06/2015 Inactive cyanocobalamin (vit B-12) 1,000 mcg/mL injection solution RxNorm: 718161 Milliliter(s) Inj 04/02/2015 04/02/2015 Inactive cyanocobalamin (vit B-12) 1,000 mcg/mL injection solution RxNorm: 916240 Milliliter(s) Inj 03/18/2015 03/18/2015 Inactive cyanocobalamin (vit B-12) 1,000 mcg/mL injection solution RxNorm: 959447 Milliliter(s) 1 Milliliter(s) Inj K1ynsyg 03/18/2015 04/07/2015 Inactive cyanocobalamin (vit B-12) 1,000 mcg/mL injection solution RxNorm: 473169 1 Milliliter(s) Inj Y4cbncp 03/16/2015 03/17/2015 Inactive cyanocobalamin (vit B-12) 1,000 mcg/mL injection solution RxNorm: 455094 Milliliter(s) Inj 03/03/2015 03/03/2015 Inactive cyanocobalamin (vit B-12) 1,000 mcg/mL injection solution RxNorm: 559155 Milliliter(s) Inj 02/18/2015 02/18/2015 Inactive cyanocobalamin (vit B-12) 1,000 mcg/mL injection solution RxNorm: 514479 Milliliter(s) Inj 02/04/2015 02/04/2015 Inactive cyanocobalamin (vit B-12) 1,000 mcg/mL injection solution RxNorm: 300950 Milliliter(s) Inj 01/22/2015 01/22/2015 Inactive Lac-Hydrin Five 5 % lotion RxNorm: 795782 1 TOP daily 01/13/2015 03/13/2015 Inactive Lac-Hydrin Five 5 % lotion RxNorm: 816592 1 TOP daily 01/13/2015 01/12/2015 Inactive cyanocobalamin (vit B-12) 1,000 mcg/mL injection solution RxNorm: 483812 Milliliter(s) Inj 01/08/2015 01/08/2015 Inactive cyanocobalamin (vit B-12) 1,000 mcg/mL injection solution RxNorm: 573056 Milliliter(s) Inj 12/25/2014 12/25/2014 Inactive levothyroxine 150 mcg tablet RxNorm: 461824 1 Tablet(s) PO daily 12/24/2014 04/07/2015 Inactive tramadol 50 mg tablet RxNorm: 744809 1-2 Tablet(s) PO Q6 as needed 12/17/2014 05/12/2015 Inactive alprazolam 0.25 mg tablet RxNorm: 652590 1 Tablet(s) PO BID 12/17/2014 04/15/2015 Inactive Pradaxa 150 mg capsule RxNorm: 9901530 1 Capsule(s) PO BID 12/16/2014 No Stop Date Active metoprolol tartrate 50 mg tablet RxNorm: 730645 1/2 Tablet(s) PO BID 12/16/2014 09/13/2016 Inactive buspirone 15 mg tablet RxNorm: 758391 1 Tablet(s) PO BID 12/16/2014 09/13/2015 Inactive cyanocobalamin (vit B-12) 1,000 mcg/mL injection solution RxNorm: 964986 1 Milliliter(s) Inj [id number] 12/16/2014 03/15/2015 Inactive cyanocobalamin (vit B-12) 1,000 mcg/mL injection solution RxNorm: 450464 1 Milliliter(s) Inj L6oesds 12/16/2014 12/15/2014 Inactive sucralfate 1 gram tablet RxNorm: 498504 Tablet(s) PO QID 12/16/2014 12/10/2015 Inactive cyanocobalamin (vit B-12) 1,000 mcg/mL injection solution RxNorm: 689508 Milliliter(s) Inj 12/10/2014 12/10/2014 Inactive cyanocobalamin (vit B-12) 1,000 mcg/mL injection solution RxNorm: 274207 Milliliter(s) Inj 11/26/2014 11/26/2014 Inactive Zoloft 50 mg tablet RxNorm: 365283 1 Tablet(s) PO daily 11/24/2014 06/21/2015 Inactive Zoloft 50 mg tablet RxNorm: 718290 1 Tablet(s) PO daily 11/24/2014 11/23/2014 Inactive cyanocobalamin (vit B-12) 1,000 mcg/mL injection kit RxNorm: 903056 Milliliter(s) Inj 11/12/2014 11/12/2014 Inactive cyanocobalamin (vit B-12) 1,000 mcg/mL injection solution RxNorm: 123687 Milliliter(s) Inj 10/28/2014 10/28/2014 Inactive [SAVINGS FOR NON-COVERED DRUGS -- BIN:[id number], N: [id number], Group: [id number], ID# [id number], Questions: . THIS IS NOT INSURANCE.] promethazine oral RxNorm: 8745 oral No Start Date Active digoxin 125 mcg tablet RxNorm: 856056 Tablet(s) PO every other day No Start Date Active furosemide 40 mg tablet RxNorm: 301415 1 Tablet(s) PO daily No Start Date Active Vitamin D3 5,000 unit tablet RxNorm: 270462 1 Tablet(s) PO daily No Start Date Active erythromycin 250 mg capsule,delayed release RxNorm: 786363 1 Capsule(s) PO AC No Start Date Active Protonix 40 mg tablet,delayed release RxNorm: 831534 1 Tablet(s) PO BID No Start Date Active Cozaar 100 mg tablet RxNorm: 079373 1 Tablet(s) PO daily No Start Date 09/13/2016 Inactive sucralfate 1 gram tablet RxNorm: 409240 Tablet(s) PO QID No Start Date 12/15/2014 Inactive amiodarone 200 mg tablet RxNorm: 920445 2 Tablet(s) PO daily No Start Date 10/13/2015 Inactive buspirone 15 mg tablet RxNorm: 698207 1 Tablet(s) PO daily No Start Date 12/15/2014 Inactive potassium chloride ER 20 mEq tablet,extended release RxNorm: 036334 1 Tablet(s) PO daily No Start Date 10/12/2015 Inactive Prilosec 40 mg capsule,delayed release RxNorm: 230033 1 Capsule(s) PO daily No Start Date 09/02/2015 Inactive Pledger 3 capsule RxNorm: Capsule(s) PO No Start Date 10/12/2015 Inactive alprazolam 0.25 mg tablet RxNorm: 578861 Tablet(s) PO QHS No Start Date 12/16/2014 Inactive levothyroxine 125 mcg tablet RxNorm: 562244 1 Tablet(s) PO daily No Start Date 12/23/2014 Inactive liothyronine 5 mcg tablet RxNorm: 327998 1 Tablet(s) PO BID No Start Date 07/21/2015 Inactive Mobic 15 mg tablet RxNorm: 809828 Tablet(s) PO daily No Start Date 05/19/2015 Inactive Norvasc 5 mg tablet RxNorm: 290542 1 Tablet(s) PO daily No Start Date 09/16/2015 Inactive Zofran 4 mg tablet RxNorm: 066096 1 Tablet(s) PO daily as needed No Start Date 05/19/2015 Inactive Tamiflu 75 mg capsule RxNorm: 664831 1 Capsule(s) PO BID No Start Date 07/23/2017 Inactive tramadol 50 mg tablet RxNorm: 388119 1 Tablet(s) PO daily as needed No Start Date 12/16/2014 Inactive amiodarone 200 mg tablet RxNorm: 216140 1 Tablet(s) PO daily No Start Date 10/12/2015 Inactive Zofran ODT 4 mg disintegrating tablet RxNorm: 880363 1 Tablet(s) PO TID as needed No Start Date 05/02/2017 Inactive albuterol sulfate 2.5 mg/3 mL (0.083 %) solution for nebulization RxNorm: 553872 3 Milliliter(s) INH Q6 PRN No Start Date 09/20/2017 Inactive meclizine 25 mg tablet RxNorm: 987715 Tablet(s) PO as needed No Start Date 05/24/2016 Inactive Pradaxa 150 mg capsule RxNorm: 2592844 1 Capsule(s) PO daily No Start Date 12/15/2014 Inactive metoprolol tartrate 50 mg tablet RxNorm: 436109 1/2 Tablet(s) PO No Start Date 12/15/2014 Inactive Aricept 10 mg tablet RxNorm: 055716 Tablet(s) PO daily No Start Date 05/19/2015 Inactive Calmoseptine 0.44 %-20.6 % topical ointment RxNorm: 748250 1 Application TOP BID and as needed to sore on buttocks No Start Date 09/06/2016 Inactive Zithromax Z-Henrique 250 mg tablet RxNorm: 750258 1 Tablet(s) PO UD No Start Date 11/09/2015 Inactive zpack x 1 Medication Administered Medication Codes Instructions Start Date Status cyanocobalamin (vit B-12) 1,000 mcg/mL injection solution RxNorm: 166371 Milliliter 06/06/2018 No longer Active cyanocobalamin (vit B-12) 1,000 mcg/mL injection solution RxNorm: 563268 Milliliter 05/24/2018 No longer Active cyanocobalamin (vit B-12) 1,000 mcg/mL injection solution RxNorm: 531242 Milliliter 05/09/2018 No longer Active cyanocobalamin (vit B-12) 1,000 mcg/mL injection solution RxNorm: 336867 Milliliter 04/26/2018 No longer Active cyanocobalamin (vit B-12) 1,000 mcg/mL injection solution RxNorm: 954247 Milliliter 04/12/2018 No longer Active cyanocobalamin (vit B-12) 1,000 mcg/mL injection solution RxNorm: 063061 Milliliter 03/30/2018 No longer Active cyanocobalamin (vit B-12) 1,000 mcg/mL injection solution RxNorm: 904472 Milliliter 03/16/2018 No longer Active cyanocobalamin (vit B-12) 1,000 mcg/mL injection solution RxNorm: 017103 Milliliter 03/02/2018 No longer Active cyanocobalamin (vit B-12) 1,000 mcg/mL injection solution RxNorm: 736948 Milliliter 02/08/2018 No longer Active cyanocobalamin (vit B-12) 1,000 mcg/mL injection solution RxNorm: 476983 Milliliter 01/24/2018 No longer Active cyanocobalamin (vit B-12) 1,000 mcg/mL injection solution RxNorm: 427417 Milliliter 01/10/2018 No longer Active cyanocobalamin (vit B-12) 1,000 mcg/mL injection solution RxNorm: 827994 Milliliter 12/27/2017 No longer Active cyanocobalamin (vit B-12) 1,000 mcg/mL injection solution RxNorm: 246592 1Milliliter 12/12/2017 No longer Active cyanocobalamin (vit B-12) 1,000 mcg/mL injection solution RxNorm: 184597 Milliliter 12/01/2017 No longer Active cyanocobalamin (vit B-12) 1,000 mcg/mL injection solution RxNorm: 550061 1Milliliter 11/17/2017 No longer Active cyanocobalamin (vit B-12) 1,000 mcg/mL injection solution RxNorm: 349320 1Milliliter 11/02/2017 No longer Active cyanocobalamin (vit B-12) 1,000 mcg/mL injection solution RxNorm: 871902 1Milliliter 10/20/2017 No longer Active cyanocobalamin (vit B-12) 1,000 mcg/mL injection solution RxNorm: 718226 Milliliter 10/06/2017 No longer Active cyanocobalamin (vit B-12) 1,000 mcg/mL injection solution RxNorm: 711736 Milliliter 09/21/2017 No longer Active Kenalog 40 mg/mL suspension for injection RxNorm: 7350937 Milliliter 09/15/2017 No longer Active cyanocobalamin (vit B-12) 1,000 mcg/mL injection solution RxNorm: 603919 Milliliter 09/07/2017 No longer Active cyanocobalamin (vit B-12) 1,000 mcg/mL injection solution RxNorm: 431154 Milliliter 08/24/2017 No longer Active cyanocobalamin (vit B-12) 1,000 mcg/mL injection solution RxNorm: 665500 Milliliter 07/06/2017 No longer Active cyanocobalamin (vit B-12) 1,000 mcg/mL injection solution RxNorm: 748408 Milliliter 06/20/2017 No longer Active Kenalog 40 mg/mL suspension for injection RxNorm: 3055664 1Milliliter 06/20/2017 No longer Active cyanocobalamin (vit B-12) 1,000 mcg/mL injection solution RxNorm: 156422 Milliliter 06/05/2017 No longer Active cyanocobalamin (vit B-12) 1,000 mcg/mL injection solution RxNorm: 254526 Milliliter 05/25/2017 No longer Active cyanocobalamin (vit B-12) 1,000 mcg/mL injection solution RxNorm: 248829 Milliliter 05/16/2017 No longer Active cyanocobalamin (vit B-12) 1,000 mcg/mL injection solution RxNorm: 926199 1Milliliter 05/01/2017 No longer Active cyanocobalamin (vit B-12) 1,000 mcg/mL injection solution RxNorm: 482323 Milliliter 04/18/2017 No longer Active cyanocobalamin (vit B-12) 1,000 mcg/mL injection solution RxNorm: 420460 Milliliter 04/06/2017 No longer Active cyanocobalamin (vit B-12) 1,000 mcg/mL injection solution RxNorm: 126057 Milliliter 03/22/2017 No longer Active cyanocobalamin (vit B-12) 1,000 mcg/mL injection solution RxNorm: 780731 Milliliter 03/09/2017 No longer Active cyanocobalamin (vit B-12) 1,000 mcg/mL injection solution RxNorm: 927706 Milliliter 02/23/2017 No longer Active cyanocobalamin (vit B-12) 1,000 mcg/mL injection solution RxNorm: 664700 Milliliter 02/09/2017 No longer Active cyanocobalamin (vit B-12) 1,000 mcg/mL injection solution RxNorm: 759377 Milliliter 01/23/2017 No longer Active cyanocobalamin (vit B-12) 1,000 mcg/mL injection solution RxNorm: 537004 Milliliter 01/10/2017 No longer Active cyanocobalamin (vit B-12) 1,000 mcg/mL injection solution RxNorm: 236652 1Milliliter 12/28/2016 No longer Active cyanocobalamin (vit B-12) 1,000 mcg/mL injection solution RxNorm: 660875 Milliliter 12/14/2016 No longer Active cyanocobalamin (vit B-12) 1,000 mcg/mL injection solution RxNorm: 044533 Milliliter 11/24/2016 No longer Active cyanocobalamin (vit B-12) 1,000 mcg/mL injection solution RxNorm: 630931 1Milliliter 11/07/2016 No longer Active cyanocobalamin (vit B-12) 1,000 mcg/mL injection solution RxNorm: 229957 Milliliter 10/24/2016 No longer Active cyanocobalamin (vit B-12) 1,000 mcg/mL injection solution RxNorm: 277623 1Milliliter 09/29/2016 No longer Active cyanocobalamin (vit B-12) 1,000 mcg/mL injection solution RxNorm: 915493 Milliliter 08/29/2016 No longer Active cyanocobalamin (vit B-12) 1,000 mcg/mL injection solution RxNorm: 507394 Milliliter 08/04/2016 No longer Active cyanocobalamin (vit B-12) 1,000 mcg/mL injection solution RxNorm: 269809 Milliliter 07/21/2016 No longer Active cyanocobalamin (vit B-12) 1,000 mcg/mL injection solution RxNorm: 280632 1Milliliter 07/05/2016 No longer Active cyanocobalamin (vit B-12) 1,000 mcg/mL injection solution RxNorm: 303792 1Milliliter 06/22/2016 No longer Active cyanocobalamin (vit B-12) 1,000 mcg/mL injection solution RxNorm: 130047 Milliliter 06/09/2016 No longer Active cyanocobalamin (vit B-12) 1,000 mcg/mL injection solution RxNorm: 967819 1Milliliter 05/25/2016 No longer Active cyanocobalamin (vit B-12) 1,000 mcg/mL injection solution RxNorm: 108881 Milliliter 05/10/2016 No longer Active cyanocobalamin (vit B-12) 1,000 mcg/mL injection solution RxNorm: 259119 Milliliter 04/26/2016 No longer Active cyanocobalamin (vit B-12) 1,000 mcg/mL injection solution RxNorm: 227894 Milliliter 04/11/2016 No longer Active cyanocobalamin (vit B-12) 1,000 mcg/mL injection solution RxNorm: 246026 Milliliter 03/31/2016 No longer Active cyanocobalamin (vit B-12) 1,000 mcg/mL injection solution RxNorm: 726902 1Milliliter 03/15/2016 No longer Active cyanocobalamin (vit B-12) 1,000 mcg/mL injection solution RxNorm: 161701 Milliliter 02/25/2016 No longer Active cyanocobalamin (vit B-12) 1,000 mcg/mL injection solution RxNorm: 098212 1Milliliter 02/02/2016 No longer Active cyanocobalamin (vit B-12) 1,000 mcg/mL injection solution RxNorm: 447805 Milliliter 01/18/2016 No longer Active cyanocobalamin (vit B-12) 1,000 mcg/mL injection solution RxNorm: 454175 Milliliter 12/29/2015 No longer Active cyanocobalamin (vit B-12) 1,000 mcg/mL injection solution RxNorm: 605575 Milliliter 12/08/2015 No longer Active cyanocobalamin (vit B-12) 1,000 mcg/mL injection solution RxNorm: 571104 Milliliter 11/23/2015 No longer Active cyanocobalamin (vit B-12) 1,000 mcg/mL injection solution RxNorm: 087418 Milliliter 11/11/2015 No longer Active cyanocobalamin (vit B-12) 1,000 mcg/mL injection solution RxNorm: 382989 1Milliliter 10/29/2015 No longer Active cyanocobalamin (vit B-12) 1,000 mcg/mL injection solution RxNorm: 611847 1Milliliter 10/12/2015 No longer Active cyanocobalamin (vit B-12) 1,000 mcg/mL injection solution RxNorm: 283252 1Milliliter 09/29/2015 No longer Active cyanocobalamin (vit B-12) 1,000 mcg/mL injection solution RxNorm: 162392 1Milliliter 09/17/2015 No longer Active cyanocobalamin (vit B-12) 1,000 mcg/mL injection solution RxNorm: 040011 1Milliliter 09/03/2015 No longer Active cyanocobalamin (vit B-12) 1,000 mcg/mL injection solution RxNorm: 788229 Milliliter 08/17/2015 No longer Active cyanocobalamin (vit B-12) 1,000 mcg/mL injection solution RxNorm: 291180 Milliliter 08/06/2015 No longer Active cyanocobalamin (vit B-12) 1,000 mcg/mL injection solution RxNorm: 162753 Milliliter 07/22/2015 No longer Active cyanocobalamin (vit B-12) 1,000 mcg/mL injection solution RxNorm: 723782 Milliliter 07/08/2015 No longer Active cyanocobalamin (vit B-12) 1,000 mcg/mL injection solution RxNorm: 164884 Milliliter 06/23/2015 No longer Active cyanocobalamin (vit B-12) 1,000 mcg/mL injection solution RxNorm: 827607 1Milliliter 06/08/2015 No longer Active cyanocobalamin (vit B-12) 1,000 mcg/mL injection solution RxNorm: 668014 Milliliter 05/27/2015 No longer Active cyanocobalamin (vit B-12) 1,000 mcg/mL injection solution RxNorm: 159045 1Milliliter 05/12/2015 No longer Active cyanocobalamin (vit B-12) 1,000 mcg/mL injection kit RxNorm: 466659 kit 04/30/2015 No longer Active cyanocobalamin (vit B-12) 1,000 mcg/mL injection solution RxNorm: 519505 Milliliter 04/16/2015 No longer Active cyanocobalamin (vit B-12) 1,000 mcg/mL injection solution RxNorm: 499009 Milliliter 04/02/2015 No longer Active cyanocobalamin (vit B-12) 1,000 mcg/mL injection solution RxNorm: 850678 Milliliter 03/18/2015 No longer Active cyanocobalamin (vit B-12) 1,000 mcg/mL injection solution RxNorm: 591833 Milliliter 03/03/2015 No longer Active cyanocobalamin (vit B-12) 1,000 mcg/mL injection solution RxNorm: 629953 Milliliter 02/18/2015 No longer Active cyanocobalamin (vit B-12) 1,000 mcg/mL injection solution RxNorm: 198950 Milliliter 02/04/2015 No longer Active cyanocobalamin (vit B-12) 1,000 mcg/mL injection solution RxNorm: 889046 Milliliter 01/22/2015 No longer Active cyanocobalamin (vit B-12) 1,000 mcg/mL injection solution RxNorm: 308227 Milliliter 01/08/2015 No longer Active cyanocobalamin (vit B-12) 1,000 mcg/mL injection solution RxNorm: 440627 Milliliter 12/25/2014 No longer Active cyanocobalamin (vit B-12) 1,000 mcg/mL injection solution RxNorm: 383267 Milliliter 12/10/2014 No longer Active cyanocobalamin (vit B-12) 1,000 mcg/mL injection solution RxNorm: 804133 Milliliter 11/26/2014 No longer Active cyanocobalamin (vit B-12) 1,000 mcg/mL injection kit RxNorm: 792046 Milliliter 11/12/2014 No longer Active cyanocobalamin (vit B-12) 1,000 mcg/mL injection solution RxNorm: 853299 Milliliter 10/28/2014 No longer Active Immunizations Vaccine [...] level monitoring ICD-10: Z51.81 ICD-9: V58.83 08/30/2017 Slow transit constipation ICD-10: K59.01 ICD-9: 564.01 07/06/2017 Atrophy of thyroid (acquired) ICD-10: E03.4 ICD-9: 244.8 07/06/2017 Candidiasis of skin and nail ICD-10: B37.2 ICD-9: 112.3 07/06/2017 Laceration without foreign body of left forearm, initial encounter ICD-10: S51.812A ICD-9: 881.00 07/06/2017 Acute laryngopharyngitis ICD-10: J06.0 ICD-9: 465.0 06/20/2017 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 ICD-9: 281.1 06/20/2017 Encounter for general adult medical examination with abnormal findings ICD-10: Z00.01 ICD-9: V70.0 06/05/2017 Chest pain on breathing ICD-10: R07.1 ICD-9: 786.52 03/23/2017 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 ICD-9: 733.6 03/23/2017 Other fatigue ICD-10: R53.83 ICD-9: 780.79 03/23/2017 Encounter for immunization ICD-10: Z23 ICD-9: V04.81 03/22/2017 Headache ICD-10: R51 ICD-9: 784.0 01/23/2017 Dysuria ICD-10: R30.0 ICD-9: 788.1 11/07/2016 Pain in thoracic spine ICD-10: M54.6 ICD-9: 724.1 11/02/2016 Low back pain ICD-10: M54.5 ICD-9: 724.2 11/02/2016 Generalized abdominal pain ICD-10: R10.84 ICD-9: 789.07 09/29/2016 Encounter for general adult medical examination without abnormal findings ICD-10: Z00.00 ICD-9: V70.9 05/30/2016 Benign lipomatous neoplasm of skin and subcutaneous tissue of right leg ICD-10: D17.23 ICD-9: 214.1 05/25/2016 Pain in right ankle and joints of right foot ICD-10: M25.571 ICD-9: 719.47 05/25/2016 Encounter for screening mammogram for malignant [...] 03/18/2015 Other screening mammogram ICD-9: V76.12 01/22/2015 Afib ICD-9: 427.31 01/13/2015 ESSENTIAL HYPERTENSION ICD-9: 401.9 01/13/2015 Anxiety ICD-9: 300.00 01/13/2015 Insomnia ICD-9: 780.52 01/13/2015 Hypothyroidism ICD-9: 244.9 12/16/2014 DIABETES TYPE [...] 05/29/2018 Lipid Ord30 C/HDL 3.6 Ratio 05/29/2018 Cbc With Differential Ord2 WBC 6.39 K/ul [...] 28.5 pg 02/26/2018 Cbc With Differential Ord2 Norman% 10.3 % 02/26/2018 Cbc With Differential Ord2 [...] 1.80 K/ul 02/26/2018 Cbc With Differential Ord2 Norman ABS# 0.7 K/ul 02/26/2018 Cbc With Differential Ord2 Eos ABS# 0.2 K/ul 02/26/2018 Cbc With Differential Ord2 Baso ABS# 0.0 K/ul 02/26/2018 B12 Ezy563 B12 889.00 pg/ml 02/26/2018 Tsh Ord6 TSH (3rd IS) 3.20 uIU/mL 02/26/2018 Free T4 Vyh893 FREE T4 0.99 ng/dL 02/26/2018 Digoxin Ord9 DIGOXIN 0.7 NG/ML 11/23/2017 Comp Metabolic Jqe574 NA 142 mEq/L 11/23/2017 Comp Metabolic Cqq315 K 4.9 mEq/L 11/23/2017 Comp Metabolic Kyo927 CL 112 mEq/L 11/23/2017 Comp Metabolic Fvd701 CO2 18.0 mEq/L 11/23/2017 Comp Metabolic Ymj732 ANION GAP 17 11/23/2017 Comp Metabolic Uyv604 GLUCOSE 123 mg/dL 11/23/2017 Comp Metabolic Ssa523 Creat 1.0 mg/dL 11/23/2017 Comp Metabolic Tur984 eGFR 59 ml/min/1.73m2 11/23/2017 Comp Metabolic Snd764 BUN 24 mg/dL 11/23/2017 Comp Metabolic Waq617 B/C Ratio 25.0 Ratio 11/23/2017 Comp Metabolic Lzp911 CALCIUM 9.4 mg/dL 11/23/2017 Comp Metabolic Pcn830 ALK PHOS 56 U/L 11/23/2017 Comp Metabolic Gtn682 AST(SGOT) 17 U/L 11/23/2017 Comp Metabolic Jio423 ALT(SGPT) 16 U/L 11/23/2017 Comp Metabolic Bio255 BILI T 0.7 mg/dL 11/23/2017 Comp Metabolic Ggi195 ALBUMIN 3.8 g/dL 11/23/2017 Comp Metabolic Rnf409 TPRO 6.2 g/dL 11/23/2017 Comp Metabolic Siq005 GLOB 2.4 g/dL 11/23/2017 Comp Metabolic Hfx577 A/G Ratio 1.6 Ratio 11/23/2017 Comp Metabolic Lbm504 Osmo 289 mOsmo 11/23/2017 Free T4 Scx849 FREE T4 1.04 ng/dL 11/23/2017 %Hba1C Jbw327 % HbA1c 93272- 6 6.4 % 11/23/2017 %Hba1C Klr919 Gluc Ave 137 mg/dL 11/23/2017 Lipid Ord30 CHOL 179 mg/dL 11/23/2017 Lipid Ord30 HDL 51.0 mg/dl 11/23/2017 Lipid Ord30 TRIG 134 mg/dL 11/23/2017 Lipid Ord30 LDL 101 mg/dL 11/23/2017 Lipid Ord30 C/HDL 3.5 Ratio 11/23/2017 Tsh Ord6 TSH (3rd IS) 1.00 uIU/mL 11/23/2017 Microalbumin Lzu294 MicroAlb <0.7 mg/dL 11/23/2017 Comp Metabolic Att885 NA 141 mEq/L 01/23/2017 Comp Metabolic Ewh103 K 4.5 mEq/L 01/23/2017 Comp Metabolic Vum570 CL 107 mEq/L 01/23/2017 Comp Metabolic Gcc938 CO2 21.0 mEq/L 01/23/2017 Comp Metabolic Uuw289 ANION GAP 18 01/23/2017 Comp Metabolic Nsc323 GLUCOSE 138 mg/dL 01/23/2017 Comp Metabolic Ejz115 Creat 1.0 mg/dL 01/23/2017 Comp Metabolic Gni180 eGFR 56 ml/min/1.73m2 01/23/2017 Comp Metabolic Rjq402 BUN 26 mg/dL 01/23/2017 Comp Metabolic Spb030 B/C Ratio 25.7 Ratio 01/23/2017 Comp Metabolic Gmw168 CALCIUM 9.0 mg/dL 01/23/2017 Comp Metabolic Wgt832 ALK PHOS 37 U/L 01/23/2017 Comp Metabolic Vcz689 AST(SGOT) 20 U/L 01/23/2017 Comp Metabolic Ycb222 ALT(SGPT) 25 U/L 01/23/2017 Comp Metabolic Ogc100 BILI T 0.9 mg/dL 01/23/2017 Comp Metabolic Ljw525 ALBUMIN 3.8 g/dL 01/23/2017 Comp Metabolic Wwj855 TPRO 6.5 g/dL 01/23/2017 Comp Metabolic Mjn169 GLOB 2.7 g/dL 01/23/2017 Comp Metabolic Dbs540 A/G Ratio 1.4 Ratio 01/23/2017 Comp Metabolic Wxm277 Osmo 288 mOsmo 01/23/2017 Free T4 Ctm655 FREE T4 1.05 ng/dL 01/23/2017 %Hba1C Xxa798 % HbA1c 98918- 6 6.1 % 01/23/2017 %Hba1C Pkx600 Gluc Ave 128 mg/dL 01/23/2017 Tsh Ord6 hTSH II 1.68 uIU/mL 01/23/2017 Culture Urine [id number] URINE CULTURE SEE NOTES 11/10/2016 Culture Urine [id number] Continued Results 11/10/2016 Urine Culture Ucult Complete [...] Ord15 CALCIUM 9.3 mg/dL 09/29/2016 Free T4 Rgz371 FREE T4 0.99 ng/dL 09/07/2016 Cbc With [...] 30.0 pg 09/07/2016 Cbc With Differential Ord2 Norman% 9.8 % 09/07/2016 Cbc With Differential Ord2 [...] 1.75 K/ul 09/07/2016 Cbc With Differential Ord2 Norman ABS# 0.6 K/ul 09/07/2016 Cbc With Differential Ord2 Eos ABS# 0.1 K/ul 09/07/2016 Cbc With Differential Ord2 Baso ABS# 0.0 K/ul 09/07/2016 Tsh Ord6 hTSH II 1.41 uIU/mL 09/07/2016 Culture Urine [id number] URINE CULTURE SEE NOTES 06/27/2016 Hepatic Arn480 ALBUMIN 4.2 g/dL 06/22/2016 Hepatic Xzp889 TPRO 7.0 g/dL 06/22/2016 Hepatic Tod499 GLOB 2.8 g/dL 06/22/2016 Hepatic Miq933 A/G Ratio 1.5 Ratio 06/22/2016 Hepatic Sla989 ALK PHOS 54 U/L 06/22/2016 Hepatic Mxb703 ALT(SGPT) 30 U/L 06/22/2016 Hepatic Sca756 AST(SGOT) 24 U/L 06/22/2016 Hepatic Iix043 BILI T 1.1 mg/dL 06/22/2016 Hepatic Twr181 BILI D 0.2 mg/dL 06/22/2016 Hepatic Upa997 BILI I 0.9 mg/dL 06/22/2016 Lipid Ord30 CHOL 196 mg/dL 06/22/2016 Lipid Ord30 HDL 63.0 mg/dl 06/22/2016 Lipid Ord30 TRIG 154 mg/dL 06/22/2016 Lipid Ord30 LDL 102 mg/dL 06/22/2016 Lipid Ord30 C/HDL 3.1 Ratio 06/22/2016 Comp Metabolic Lus713 NA 139 mEq/L 06/14/2016 Comp Metabolic Uuo378 K 4.6 mEq/L 06/14/2016 Comp Metabolic Pnp221 CL 108 mEq/L 06/14/2016 Comp Metabolic Jns847 CO2 22.0 mEq/L 06/14/2016 Comp Metabolic Lln798 ANION GAP 14 06/14/2016 Comp Metabolic Uku991 GLUCOSE 114 mg/dL 06/14/2016 Comp Metabolic Wny833 Creat 1.2 mg/dL 06/14/2016 Comp Metabolic Era306 eGFR 48 ml/min/1.73m2 06/14/2016 Comp Metabolic Xhj027 BUN 24 mg/dL 06/14/2016 Comp Metabolic Rfp233 B/C Ratio 20.9 Ratio 06/14/2016 Comp Metabolic Jaj496 CALCIUM 9.9 mg/dL 06/14/2016 Comp Metabolic Kre729 ALK PHOS 47 U/L 06/14/2016 Comp Metabolic Uqc061 AST(SGOT) 28 U/L 06/14/2016 Comp Metabolic Dgo162 ALT(SGPT) 32 U/L 06/14/2016 Comp Metabolic Fhh949 BILI T 0.9 mg/dL 06/14/2016 Comp Metabolic Job114 ALBUMIN 4.1 g/dL 06/14/2016 Comp Metabolic Yfv064 TPRO 6.9 g/dL 06/14/2016 Comp Metabolic Jaj094 GLOB 2.8 g/dL 06/14/2016 Comp Metabolic Maq752 A/G Ratio 1.5 Ratio 06/14/2016 Comp Metabolic Vwg222 Osmo 282 mOsmo 06/14/2016 Tsh Ord6 hTSH II 1.26 uIU/mL 06/14/2016 Free T4 Wll329 FREE T4 1.09 ng/dL 06/14/2016 Tsh Ord6 hTSH II 0.28 uIU/mL 02/02/2016 Digoxin Ord9 DIGOXIN 0.7 NG/ML 02/02/2016 Free T4 Zsd984 FREE T4 1.23 ng/dL 02/02/2016 Hepatic Dnc630 ALBUMIN 4.0 g/dL 02/02/2016 Hepatic Dqg226 TPRO 7.0 g/dL 02/02/2016 Hepatic Ums719 GLOB 3.0 g/dL 02/02/2016 Hepatic Kvt831 A/G Ratio 1.3 Ratio 02/02/2016 Hepatic Pxg102 ALK PHOS 57 U/L 02/02/2016 Hepatic Hxj510 ALT(SGPT) 62 U/L 02/02/2016 Hepatic Zzd568 AST(SGOT) 54 U/L 02/02/2016 Hepatic Scn681 BILI T 0.8 mg/dL 02/02/2016 Hepatic Muj832 BILI D 0.2 mg/dL 02/02/2016 Hepatic Jis003 BILI I 0.6 mg/dL 02/02/2016 Urine Culture Ucult Preliminary No Growth Day 1 11/25/2015 Urine Culture Ucult Complete No Growth Day 2 11/25/2015 Hepatic Bkm686 ALBUMIN 3.9 g/dL 11/11/2015 Hepatic Jmh869 TPRO 7.0 g/dL 11/11/2015 Hepatic Kxj642 GLOB 3.1 g/dL 11/11/2015 Hepatic Kit895 A/G Ratio 1.3 Ratio 11/11/2015 Hepatic Dwr826 ALK PHOS 63 U/L 11/11/2015 Hepatic Xmy001 ALT(SGPT) 107 U/L 11/11/2015 Hepatic Tvc552 AST(SGOT) 101 U/L 11/11/2015 Hepatic Ukj730 BILI T 0.6 mg/dL 11/11/2015 Hepatic Kwx685 BILI D 0.1 mg/dL 11/11/2015 Hepatic Jer653 BILI I 0.5 mg/dL 11/11/2015 Comp Metabolic Auz123 NA 138 mEq/L 10/29/2015 Comp Metabolic Dwp988 K 5.0 mEq/L 10/29/2015 Comp Metabolic Twz956 CL 105 mEq/L 10/29/2015 Comp Metabolic Onx372 CO2 23.0 mEq/L 10/29/2015 Comp Metabolic Uwg499 ANION GAP 15 10/29/2015 Comp Metabolic Gks053 GLUCOSE 105 mg/dL 10/29/2015 Comp Metabolic Zuh544 Creat 1.0 mg/dL 10/29/2015 Comp Metabolic Szi617 eGFR 55 ml/min/1.73m2 10/29/2015 Comp Metabolic Aaq233 BUN 20 mg/dL 10/29/2015 Comp Metabolic Row306 B/C Ratio 19.4 Ratio 10/29/2015 Comp Metabolic Vfs295 CALCIUM 8.8 mg/dL 10/29/2015 Comp Metabolic Qal374 ALK PHOS 56 U/L 10/29/2015 Comp Metabolic Pkw376 AST(SGOT) 66 U/L 10/29/2015 Comp Metabolic Vee974 ALT(SGPT) 78 U/L 10/29/2015 Comp Metabolic Hbn501 BILI T 0.7 mg/dL 10/29/2015 Comp Metabolic Bjz704 ALBUMIN 3.6 g/dL 10/29/2015 Comp Metabolic Wov837 TPRO 6.6 g/dL 10/29/2015 Comp Metabolic Pqc742 GLOB 3.0 g/dL 10/29/2015 Comp Metabolic Wzg812 A/G Ratio 1.2 Ratio 10/29/2015 Comp Metabolic Sqi892 Osmo 279 mOsmo 10/29/2015 Comp Metabolic Egi825 NA 136 mEq/L 09/03/2015 Comp Metabolic Clw010 K 4.4 mEq/L 09/03/2015 Comp Metabolic Awz659 CL 103 mEq/L 09/03/2015 Comp Metabolic Fdn583 CO2 24.0 mEq/L 09/03/2015 Comp Metabolic Ksl281 ANION GAP 13 09/03/2015 Comp Metabolic Poa771 GLUCOSE 87 mg/dL 09/03/2015 Comp Metabolic Kds590 Creat 1.1 mg/dL 09/03/2015 Comp Metabolic Dxm439 eGFR 53 ml/min/1.73m2 09/03/2015 Comp Metabolic Myj579 BUN 17 mg/dL 09/03/2015 Comp Metabolic Lef423 B/C Ratio 16.2 Ratio 09/03/2015 Comp Metabolic Gra497 CALCIUM 9.0 mg/dL 09/03/2015 Comp Metabolic Noq970 ALK PHOS 55 U/L 09/03/2015 Comp Metabolic Dic194 AST(SGOT) 83 U/L 09/03/2015 Comp Metabolic Kzg148 ALT(SGPT) 126 U/L 09/03/2015 Comp Metabolic Hkn782 BILI T 0.9 mg/dL 09/03/2015 Comp Metabolic Jqn119 ALBUMIN 3.9 g/dL 09/03/2015 Comp Metabolic Iav944 TPRO 6.8 g/dL 09/03/2015 Comp Metabolic Agv930 GLOB 2.9 g/dL 09/03/2015 Comp Metabolic Syy864 A/G Ratio 1.4 Ratio 09/03/2015 Comp Metabolic Ysf551 Osmo 273 mOsmo 09/03/2015 Total T3 Ord42 TT3 0.6 ng/ml 07/09/2015 Tsh Ord6 hTSH II 1.62 uIU/mL 07/09/2015 Tsh Ord6 hTSH II 5.95 uIU/mL 04/02/2015 Free T4 Yij428 FREE T4 1.23 ng/dL 04/02/2015 Total T3 [...] Procedure Codes Date THER/PROPH/DIAG INJ SC/IM CPT-4: 57392 06/06/2018 VITAMIN B12 INJECTION CPT- 4: J3420 06/06/2018 THER/PROPH/DIAG INJ SC/IM CPT-4: 47396 05/24/2018 THER/PROPH/DIAG INJ SC/IM CPT-4: 78591 05/09/2018 THER/PROPH/DIAG INJ SC/IM CPT-4: 79267 04/26/2018 VITAMIN B12 INJECTION CPT- 4: J3420 04/26/2018 THER/PROPH/DIAG INJ SC/IM CPT-4: 39435 04/12/2018 THER/PROPH/DIAG INJ SC/IM CPT-4: 07433 03/30/2018 THER/PROPH/DIAG INJ SC/IM CPT-4: 05463 03/16/2018 VITAMIN B12 INJECTION CPT- 4: J3420 03/16/2018 ADMIN INFLUENZA VIRUS VAC CPT-4: G0008 03/16/2018 FLU VACC PRSV FREE INC ANTIG Formatting Model/CDA Sections, Assigned to/Nga Ojeda CPT-4: 34392Jayqssf 03/16/2018 THER/PROPH/DIAG INJ SC/IM CPT-4: 77379 03/02/2018 THER/PROPH/DIAG INJ SC/IM CPT-4: 32693 02/08/2018 THER/PROPH/DIAG INJ SC/IM CPT-4: 20692 01/24/2018 THER/PROPH/DIAG INJ SC/IM CPT-4: 80585 01/10/2018 THER/PROPH/DIAG INJ SC/IM CPT-4: 98760 12/27/2017 VITAMIN B12 INJECTION CPT- 4: J3420 12/27/2017 THER/PROPH/DIAG INJ SC/IM CPT-4: 90515 12/12/2017 THER/PROPH/DIAG INJ SC/IM CPT-4: 10582 12/01/2017 VITAMIN B12 INJECTION CPT- 4: J3420 12/01/2017 THER/PROPH/DIAG INJ SC/IM CPT-4: 81957 11/17/2017 THER/PROPH/DIAG INJ SC/IM CPT-4: 74249 11/02/2017 THER/PROPH/DIAG INJ SC/IM CPT-4: 88678 10/20/2017 THER/PROPH/DIAG INJ SC/IM CPT-4: 33409 10/06/2017 THER/PROPH/DIAG INJ SC/IM CPT-4: 82572 09/21/2017 TRIAMCINOLONE ACET INJ NOS CPT-4: J3301 09/15/2017 THER/PROPH/DIAG INJ SC/IM CPT-4: 80938 09/07/2017 THER/PROPH/DIAG INJ SC/IM CPT-4: 51868 08/24/2017 THER/PROPH/DIAG INJ SC/IM CPT-4: 42349 07/06/2017 THER/PROPH/DIAG INJ SC/IM CPT-4: 60326 06/20/2017 TRIAMCINOLONE ACET INJ NOS CPT-4: J3301 06/20/2017 PPPS, SUBSEQ VISIT CPT- 4: G0439 06/05/2017 THER/PROPH/DIAG INJ SC/IM CPT-4: 67012 06/05/2017 THER/PROPH/DIAG INJ SC/IM CPT-4: 98078 05/25/2017 VITAMIN B12 INJECTION CPT- 4: J3420 05/25/2017 THER/PROPH/DIAG INJ SC/IM CPT-4: 39803 05/16/2017 THER/PROPH/DIAG INJ SC/IM CPT-4: 96397 05/01/2017 THER/PROPH/DIAG INJ SC/IM CPT-4: 38302 04/18/2017 THER/PROPH/DIAG INJ SC/IM CPT-4: 19137 04/06/2017 ADMIN INFLUENZA VIRUS VAC CPT-4: G0008 03/22/2017 FLU VACC PRSV FREE INC ANTIG CPT-4: 82554 03/22/2017 THER/PROPH/DIAG INJ SC/IM CPT-4: 12564 03/09/2017 THER/PROPH/DIAG INJ SC/IM CPT-4: 69754 02/23/2017 THER/PROPH/DIAG INJ SC/IM CPT-4: 96477 02/09/2017 THER/PROPH/DIAG INJ SC/IM CPT-4: 86294 01/23/2017 THER/PROPH/DIAG INJ SC/IM CPT-4: 57349 01/10/2017 THER/PROPH/DIAG INJ SC/IM CPT-4: 10757 12/28/2016 THER/PROPH/DIAG INJ SC/IM CPT-4: 60029 12/14/2016 THER/PROPH/DIAG INJ SC/IM CPT-4: 19238 11/24/2016 URINALYSIS NONAUTO W/O SCOPE CPT-4: 88049 11/07/2016 THER/PROPH/DIAG INJ SC/IM CPT-4: 27714 11/07/2016 THER/PROPH/DIAG INJ SC/IM CPT-4: 27252 10/24/2016 THER/PROPH/DIAG INJ SC/IM CPT-4: 42096 09/29/2016 THER/PROPH/DIAG INJ SC/IM CPT-4: 34676 08/29/2016 THER/PROPH/DIAG INJ SC/IM CPT-4: 94772 08/04/2016 THER/PROPH/DIAG INJ SC/IM CPT-4: 41246 07/21/2016 THER/PROPH/DIAG INJ SC/IM CPT-4: 13710 07/05/2016 THER/PROPH/DIAG INJ SC/IM CPT-4: 52393 06/22/2016 URINALYSIS NONAUTO W/O SCOPE CPT-4: 63247 06/22/2016 THER/PROPH/DIAG INJ SC/IM CPT-4: 97441 06/09/2016 PPPS, SUBSEQ VISIT CPT- 4: G0439 05/30/2016 ADMIN PNEUMOCOCCAL VACCINE SNOMED CT: 09900396 CPT-4: G0009 05/25/2016 Pneumococcal Polysaccharide Vaccine, 23-Valent, Ad CPT-4: 03016 05/25/2016 THER/PROPH/DIAG INJ SC/IM CPT-4: 80911 05/25/2016 THER/PROPH/DIAG INJ SC/IM CPT-4: 24021 05/10/2016 TRIAMCINOLONE ACET INJ NOS CPT-4: J3301 04/26/2016 VITAMIN B12 INJECTION CPT- 4: J3420 04/26/2016 THER/PROPH/DIAG INJ SC/IM CPT-4: 18335 04/11/2016 THER/PROPH/DIAG INJ SC/IM CPT-4: 98824 03/31/2016 ADMIN INFLUENZA VIRUS VAC CPT-4: G0008 03/15/2016 FLU VACC 4 STEPHANIE [address] YRS PLUS IM SNOMED CT: 71701570 CPT-4: 54344 03/15/2016 THER/PROPH/DIAG INJ SC/IM CPT-4: 00242 02/25/2016 THER/PROPH/DIAG INJ SC/IM CPT-4: 04757 02/02/2016 THER/PROPH/DIAG INJ SC/IM CPT-4: 27756 01/18/2016 VITAMIN B12 INJECTION CPT- 4: J3420 12/29/2015 THER/PROPH/DIAG INJ SC/IM CPT-4: 27383 12/29/2015 THER/PROPH/DIAG INJ SC/IM CPT-4: 34473 12/08/2015 THER/PROPH/DIAG INJ SC/IM CPT-4: 54603 11/23/2015 URINALYSIS NONAUTO W/O SCOPE CPT-4: 33747 11/23/2015 THER/PROPH/DIAG INJ SC/IM CPT-4: 81650 11/11/2015 THER/PROPH/DIAG INJ SC/IM CPT-4: 68067 10/29/2015 THER/PROPH/DIAG INJ SC/IM CPT-4: 82782 10/12/2015 VITAMIN B12 INJECTION CPT- 4: J3420 10/12/2015 THER/PROPH/DIAG INJ SC/IM CPT-4: 15670 09/29/2015 THER/PROPH/DIAG INJ SC/IM CPT-4: 41401 09/17/2015 THER/PROPH/DIAG INJ SC/IM CPT-4: 10296 09/03/2015 THER/PROPH/DIAG INJ SC/IM CPT-4: 50205 08/17/2015 THER/PROPH/DIAG INJ SC/IM CPT-4: 67623 08/06/2015 THER/PROPH/DIAG INJ SC/IM CPT-4: 37270 07/22/2015 THER/PROPH/DIAG INJ SC/IM CPT-4: 00464 07/08/2015 THER/PROPH/DIAG INJ SC/IM CPT-4: 93175 06/23/2015 THER/PROPH/DIAG INJ SC/IM CPT-4: 07304 06/08/2015 THER/PROPH/DIAG INJ SC/IM CPT-4: 55931 05/27/2015 DESTRUCT PREMALG LESION CPT-4: 84613 05/19/2015 DESTRUCT PREMALG LES 2-14 CPT-4: 40717 05/19/2015 THER/PROPH/DIAG INJ SC/IM CPT-4: 15642 05/12/2015 VITAMIN B12 INJECTION CPT- 4: J3420 05/12/2015 THER/PROPH/DIAG INJ SC/IM CPT-4: 74528 04/30/2015 VITAMIN B12 INJECTION CPT- 4: J3420 04/30/2015 THER/PROPH/DIAG INJ SC/IM CPT-4: 60030 04/16/2015 THER/PROPH/DIAG INJ SC/IM CPT-4: 88300 04/02/2015 VITAMIN B12 INJECTION CPT- 4: J3420 04/02/2015 THER/PROPH/DIAG INJ SC/IM CPT-4: 40178 03/18/2015 THER/PROPH/DIAG INJ SC/IM CPT-4: 32186 03/03/2015 THER/PROPH/DIAG INJ SC/IM CPT-4: 57066 02/18/2015 THER/PROPH/DIAG INJ SC/IM CPT-4: 73966 02/04/2015 VITAMIN B12 INJECTION CPT- 4: J3420 02/04/2015 THER/PROPH/DIAG INJ SC/IM CPT-4: 88485 01/22/2015 THER/PROPH/DIAG INJ SC/IM CPT-4: 91582 01/08/2015 VITAMIN B12 INJECTION CPT- 4: J3420 01/08/2015 THER/PROPH/DIAG INJ SC/IM CPT-4: 08868 12/25/2014 VITAMIN B12 INJECTION CPT- 4: J3420 12/25/2014 THER/PROPH/DIAG INJ SC/IM CPT-4: 34836 12/10/2014 VITAMIN B12 INJECTION CPT- 4: J3420 12/10/2014 THER/PROPH/DIAG INJ SC/IM CPT-4: 24513 11/26/2014 VITAMIN B12 INJECTION CPT- 4: J3420 11/26/2014 THER/PROPH/DIAG INJ SC/IM CPT-4: 61398 11/12/2014 VITAMIN B12 INJECTION CPT- 4: J3420 11/12/2014 THER/PROPH/DIAG INJ SC/IM CPT-4: 91314 10/28/2014 Vital Signs Date Vital 05/03/2018 Blood Pressure 1: 140/70 Code: 8480-6 BMI: 26.0 Code: 00197-9 Heart Rate 1: 70 bpm Height: 5'6" SpO2: 94% Weight: 161 lbs 04/26/2018 Height: 5'6" 02/26/2018 Blood Pressure 1: 130/72 Code: 8480-6 BMI: 27.9 Code: 13498-8 Heart Rate 1: 72 bpm Height: 5'6" SpO2: 93% Weight: 173 lbs 12/12/2017 Blood Pressure 1: 126/74 Code: 8480-6 BMI: 27.4 Code: 85960-0 Heart Rate 1: 83 bpm Height: 5'6" SpO2: 98% Weight: 170 lbs 12/04/2017 Blood Pressure 1: 104/68 Code: 8480-6 BMI: 28.2 Code: 25243-4 Heart Rate 1: 85 bpm Height: 5'6" SpO2: 95% Weight: 175 lbs 11/20/2017 Blood Pressure 1: 130/68 Code: 8480-6 BMI: 28.4 Code: 53465-3 Heart Rate 1: 80 bpm Height: 5'6" SpO2: 99% Weight: 176 lbs 11/02/2017 Height: 5'6" 09/15/2017 Blood Pressure 1: 134/74 Code: 8480-6 BMI: 28.4 Code: 96243-5 Heart Rate 1: 88 bpm Height: 5'6" SpO2: 98% Weight: 176 lbs 09/07/2017 Blood Pressure 1: 124/64 Code: 8480-6 Heart Rate 1: 90 bpm Height: SpO2: 97% Weight: 08/30/2017 Blood Pressure 1: 140/76 Code: 8480-6 BMI: 28.4 Code: 33695-7 Heart Rate 1: 90 bpm Height: 5'6" SpO2: 94% Weight: 176 lbs 07/06/2017 Blood Pressure 1: 132/66 Code: 8480-6 BMI: 29.4 Code: 09747-5 Heart Rate 1: 85 bpm Height: 5'6" SpO2: 97% Weight: 182 lbs 06/20/2017 Blood Pressure 1: 134/86 Code: 8480-6 Heart Rate 1: 90 bpm Height: SpO2: 98% Weight: 06/05/2017 BMI: 29.1 Code: 86357-0 Height: 5'6" Weight: 180 lbs 05/25/2017 Blood Pressure 1: 126/76 Code: 8480-6 BMI: 29.1 Code: 46096-2 Heart Rate 1: 77 bpm Height: 5'6" SpO2: 97% Weight: 180 lbs 03/23/2017 Blood Pressure 1: 142/84 Code: 8480-6 BMI: 29.1 Code: 44358-2 Heart Rate 1: 91 bpm Height: 5'6" SpO2: 97% Weight: 180 lbs 01/23/2017 Blood Pressure 1: 150/90 Code: 8480-6 BMI: 29.9 Code: 99613-6 Heart Rate 1: 81 bpm Height: 5'6" SpO2: 97% Weight: 185 lbs 11/02/2016 Blood Pressure 1: 148/78 Code: 8480-6 BMI: 29.7 Code: 27633-9 Heart Rate 1: 87 bpm Height: 5'6" SpO2: 97% Weight: 184 lbs 09/29/2016 Blood Pressure 1: 128/78 Code: 8480-6 BMI: 29.7 Code: 10484-9 Heart Rate 1: 78 bpm Height: 5'6" SpO2: 98% Weight: 184 lbs 07/26/2016 Blood Pressure 1: 138/72 Code: 8480-6 BMI: 30.0 Code: 65434-0 Heart Rate 1: 85 bpm Height: 5'6" SpO2: 97% Weight: 186 lbs 05/30/2016 Blood Pressure 1: 132/76 Code: 8480-6 BMI: 30.0 Code: 39965-3 Heart Rate 1: 80 bpm Height: 5'6" SpO2: 98% Waist Measure (cm): 99 cm Weight: 186 lbs 05/25/2016 Blood Pressure 1: 132/76 Code: 8480-6 BMI: 30.0 Code: 67051-3 Heart Rate 1: 80 bpm Height: 5'6" SpO2: 96% Weight: 186 lbs 02/25/2016 Blood Pressure 1: 110/64 Code: 8480-6 Heart Rate 1: 82 bpm Height: SpO2: 96% Weight: 01/25/2016 Blood Pressure 1: 118/70 Code: 8480-6 BMI: 30.0 Code: 34400-6 Heart Rate 1: 78 bpm Height: 5'6" SpO2: 97% Weight: 186 lbs 11/11/2015 Blood Pressure 1: 128/82 Code: 8480-6 BMI: 29.2 Code: 51215-8 Heart Rate 1: 86 bpm Height: 5'6" SpO2: 96% Temperature: 36.4 (C) / 97.6 (F) Weight: 181 lbs 10/12/2015 Blood Pressure 1: 118/70 Code: 8480-6 BMI: 29.2 Code: 98322-5 Heart Rate 1: 81 bpm Height: 5'6" SpO2: 95% Weight: 181 lbs 09/03/2015 Blood Pressure 1: 138/78 Code: 8480-6 BMI: 29.9 Code: 77504-0 Heart Rate 1: 88 bpm Height: 5'6" SpO2: 97% Weight: 185 lbs 05/19/2015 Blood Pressure 1: 146/78 Code: 8480-6 BMI: 30.0 Code: 72065-6 Heart Rate 1: 66 bpm Height: 5'6" SpO2: 97% Weight: 186 lbs 05/12/2015 Blood Pressure 1: 120/70 Code: 8480-6 BMI: 29.9 Code: 73750-2 Heart Rate 1: 89 bpm Height: 5'6" SpO2: 95% Weight: 185 lbs 01/13/2015 Blood Pressure 1: 140/90 Code: 8480-6 BMI: 30.3 Code: 38182-3 Heart Rate 1: 84 bpm Height: 5'6" SpO2: 95% Weight: 188 lbs 12/16/2014 Blood Pressure 1: 140/82 Code: 8480-6 BMI: 29.5 Code: 60758-3 Heart Rate 1: 86 bpm Height: 5'6" [...] data Encounters Encounter Performer Location Codes Date ([id number]) [id number] EST. PATIENT, LEVEL IV Diagnosis: Essential (primary) hypertension[ICD10: I10] Diagnosis: Type 2 diabetes mellitus without complications[ICD10: E11.9] Yarely Vega MD, [facility] CPT-4: 72414 05/03/2018 ([id number]) 22213 EST. PATIENT, LEVEL III Diagnosis: Pain in left shoulder[ICD10: M25.512] Diagnosis: Pain in right shoulder[ICD10: M25.511] Yarely Vega MD, [facility] CPT-4: 70954 02/26/2018 ([id number]) 79984 EST. PATIENT, LEVEL III Diagnosis: Nausea[ICD10: R11.0] Diagnosis: Cough[ICD10: R05] Diagnosis: 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 factor deficiency[ICD10: D51.0] Janet Vega MD, [facility] CPT-4: 94853 12/12/2017 ([id number]) 28904 EST. PATIENT, LEVEL IV Diagnosis: Acute bronchitis due to Hemophilus influenzae[ICD10: J20.1] Diagnosis: Cough[ICD10: R05] Yarely Vega MD, [facility] CPT-4: 56813 12/04/2017 ([id number]) 34911 EST. PATIENT, LEVEL IV Diagnosis: Essential (primary) hypertension[ICD10: I10] Diagnosis: Cough[ICD10: R05] Diagnosis: Chronic atrial fibrillation[ICD10: I48.2] Yarely Vega MD, [facility] CPT-4: 13201 11/20/2017 ([id number]) 90615 EST. PATIENT, LEVEL III Diagnosis: Cough[ICD10: R05] Diagnosis: Acute upper respiratory infection, unspecified[ICD10: J06.9] Janet Vega MD, [facility] CPT-4: 22797 09/15/2017 [id number] EST. PATIENT, LEVEL III Diagnosis: Laceration without foreign body of right forearm, initial encounter[ICD10: S51.811A] Diagnosis: Other vitamin B12 deficiency anemias[ICD10: D51.8] Brianna Vega MD, [facility] CPT-4: 40494 09/07/2017 ([id number]) 39372 EST. PATIENT, LEVEL IV Diagnosis: Chronic atrial fibrillation[ICD10: I48.2] Diagnosis: Other allergic rhinitis[ICD10: J30.89] Diagnosis: Encounter for therapeutic drug level monitoring[ICD10: Z51.81] Yarely Vega MD, [facility] CPT-4: 31931 08/30/2017 ([id number]) 29846 EST. PATIENT, LEVEL IV Diagnosis: Atrophy of thyroid (acquired)[ICD10: E03.4] Diagnosis: Cough[ICD10: R05] Diagnosis: Laceration without foreign body of left forearm, initial encounter[ICD10: S51.812A] Diagnosis: Candidiasis of skin and nail[ICD10: B37.2] Diagnosis: Other vitamin B12 deficiency anemias[ICD10: D51.8] Diagnosis: Slow transit constipation[ICD10: K59.01] Yarely Vega MD, [facility] CPT-4: 31721 07/06/2017 [id number] EST. PATIENT, LEVEL III Diagnosis: Other vitamin B12 deficiency anemias[ICD10: D51.8] Diagnosis: Acute laryngopharyngitis[ICD10: J06.0] Diagnosis: Other allergic rhinitis[ICD10: J30.89] Brianna Vega MD, [facility] CPT- 4: 84165 06/20/2017 ([id number]) 62133 EST. PATIENT, LEVEL IV Diagnosis: Essential (primary) hypertension[ICD10: I10] Diagnosis: Chronic atrial fibrillation[ICD10: I48.2] Diagnosis: Atrophy of thyroid (acquired)[ICD10: E03.4] Diagnosis: 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 factor deficiency[ICD10: D51.0] Yarely Vega MD, [facility] CPT-4: 81534 05/25/2017 ([id number]) 14846 EST. 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 CPT-4: 17954 03/23/2017 ([id number]) 30445 EST. PATIENT, LEVEL IV Diagnosis: Type 2 diabetes mellitus without complications[ICD10: E11.9] Diagnosis: Essential (primary) hypertension[ICD10: I10] Diagnosis: Headache[ICD10: R51] Diagnosis: Atrophy of thyroid (acquired)[ICD10: E03.4] Diagnosis: Vitamin B12 deficiency anemia, unspecified[ICD10: D51.9] Yarely Vega MD, [facility] CPT-4: 01366 01/23/2017 [id number] EST. PATIENT, LEVEL III Diagnosis: Low back pain[ICD10: M54.5] Diagnosis: Pain in thoracic spine[ICD10: M54.6] Brianna Vega MD, [facility] CPT- 4: 25520 11/02/2016 ([id number]) 48883 EST. PATIENT, LEVEL IV Diagnosis: Essential (primary) hypertension[ICD10: I10] Diagnosis: Other vitamin B12 deficiency anemias[ICD10: D51.8] Diagnosis: Generalized abdominal pain[ICD10: R10.84] Yarely Vega MD, [facility] CPT-4: 54851 09/29/2016 ([id number]) 89190 EST. PATIENT, LEVEL IV Diagnosis: Essential (primary) hypertension[ICD10: I10] Yarely Vega MD, [facility] CPT-4: 28879 07/26/2016 [id number]) 42079 EST. PATIENT, LEVEL IV Diagnosis: Benign lipomatous neoplasm of skin and subcutaneous tissue of right leg[ICD10: D17.23] Diagnosis: Pain in right ankle and joints of right foot[ICD10: M25.571] Diagnosis: Encounter for immunization[ICD10: Z23] Diagnosis: Vitamin B12 deficiency anemia, unspecified[ICD10: D51.9] Yarely Vega MD, [facility] CPT-4: 18711 05/25/2016 [id number] EST. PATIENT, LEVEL III Diagnosis: Other chest pain[ICD10: R07.89] Diagnosis: Other vitamin B12 deficiency anemias[ICD10: D51.8] Brianna Vega MD, [facility] CPT-4: 99931 02/25/2016 ([id number]) 90464 EST. 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 CPT-4: 02786 01/25/2016 [id number] EST. PATIENT, LEVEL III Diagnosis: Other vitamin B12 deficiency anemias[ICD10: D51.8] Diagnosis: Acute nasopharyngitis [common cold][ICD10: J00] Diagnosis: Other allergic rhinitis[ICD10: J30.89] Brianna Vega MD, [facility] CPT- 4: 33640 11/11/2015 ([id number]) 39399 EST. PATIENT, LEVEL IV Diagnosis: Essential tremor[ICD10: G25.0] Diagnosis: Chronic fatigue, unspecified[ICD10: R53.82] Diagnosis: Other hypersomnia[ICD10: G47.19] Diagnosis: Essential (primary) hypertension[ICD10: I10] Yarely Vega MD, [facility] CPT-4: 57209 10/12/2015 ([id number]) 67715 EST. PATIENT, LEVEL IV Diagnosis: Essential (primary) hypertension[ICD10: I10] Diagnosis: Chronic atrial fibrillation[ICD10: I48.2] Diagnosis: Abnormal levels of other serum enzymes[ICD10: R74.8] Diagnosis: Type 2 diabetes mellitus without complications[ICD10: E11.9] Diagnosis: Vitamin B12 deficiency anemia, unspecified[ICD10: D51.9] Yraely Vega MD, [facility] CPT-4: 94105 09/03/2015 [id number]) 66281 EST. PATIENT, LEVEL III Diagnosis: Nausea[ICD10: R11.0] Diagnosis: Essential tremor[ICD10: G25.0] Diagnosis: Actinic keratosis[ICD10: L57.0] [facility] CPT-4: 24745 05/19/2015 [id number]) 71599 EST. PATIENT, LEVEL IV Diagnosis: Vitamin B12 deficiency anemia, unspecified[ICD10: D51.9] Diagnosis: Chronic atrial fibrillation[ICD10: I48.2] Diagnosis: Headache[ICD10: R51] Diagnosis: Chronic fatigue, unspecified[ICD10: R53.82] Diagnosis: Cervicalgia[ICD10: M54.2] Yarely Vega MD, [facility] CPT-4: 16989 05/12/2015 [id number]) 86742 EST. PATIENT, LEVEL IV Diagnosis: ESSENTIAL HYPERTENSION[ICD9: 401.9] Diagnosis: Afib[ICD9: 427.31] Diagnosis: Anxiety[ICD9: 300.00] Diagnosis: Insomnia[ICD9: 780.52] [facility] CPT-4: 86413 01/13/2015 ([id number]) OFFICE VISIT, NEW - LEVEL 4 Diagnosis: Hypothyroidism[ICD9: 244.9] Diagnosis: DIABETES TYPE II[ICD9: 250.00] Diagnosis: ESSENTIAL HYPERTENSION[ICD9: 401.9] Diagnosis: Afib[ICD9: 427.31] Diagnosis: Anxiety[ICD9: 300.00] Diagnosis: B12 deficiency[ICD9: 266.2] [facility] CPT-4: 91346 12/16/2014 Plan of Care Planned Activity Notes Codes Status Date Appointment: [phone] ([facility] Complex 06/07/2018 Appointment: Injection 06/06/2018 Patient Education: Patient Medication Summary Completed 06/06/2018 [phone] ([facility] min) Moderate 05/31/2018 Appointment: Injection [...] flonase 05/03/2018 App[facility]ment: [phone] (15 min) Moderate 05/03/2018 Patient Education: [...] intervention. 02/26/2018 Appointment: Yarely Vega WPtel: [phone] [facility] (15 min) Moderate 02/26/2018 Patient Education: Patient Medication Summary Completed 02/26/2018 Care Plan: Referral Order SNOMED-CT : [id number] Pending 02/26/2018 Appointment: Injection 02/08/2018 Patient Education: Patient Medication Summary Completed 02/08/2018 Appointment: Injection 01/24/2018 Patient Education: Patient Medication Summary Completed 01/24/2018 Appointment: Injection 01/10/2018 Patient Education: Patient Medication Summary Completed 01/10/2018 Appointment: Injection 12/27/2017 Patient Education: Patient Medication Summary Completed 12/27/2017 Appointment: Yarely Vega WPtel: [phone] [facility] (15 min) Moderate 12/26/2017 Visit Plan: Occpnz-rqpbrdnar-htkwcext protonix-follow up with Dr Navarro as scheduled Cough-recent bronchitis-symptoms improved-call if symptoms do not completely resolve 12/12/2017 Appointment: Janet Fam WPtel: [phone] [phone] [place] (15 min) Moderate 12/12/2017 Patient Education: Patient Medication Summary Completed 12/12/2017 Visit Plan: Bronchitis - acute case of bronchitis identified. Pt has been given antibiotics, breathing treatments as appropriate, and pt has been instructed to call if symptoms are not improved, or if symptoms acutely worsen. Cough - rx for antibiotics as well as cough medication. 12/04/2017 Appointment: Yarely Vega WPtel: [phone] [facility] (15 min) Moderate [...] Fatigue/malaise -Pt was advsied to ask the [employer] the following: ask the heart doctor if [...] uncontrolled. 11/20/2017 Appointment: Yarely Vega WPtel: [facility] (15 min) Moderate 11/20/2017 Patient Education: Patient [...] any worse. 09/15/2017 Appointment: Janet Fam WPtel: [address] [place], [place] [phone] [place] (15 min) Moderate 09/15/2017 Patient Education: Patient Medication Summary Completed 09/15/2017 Appointment: Yarely Vega WPtel: [facility] [place] (15 min) Moderate 09/11/2017 Visit Plan: Skin tear and Cellulitis - The patient was instructed in appropriate wound care. The patient was instructed to use the antibiotic ointment as per RX. The patient is to call for any change in symptoms, increase in size of the lesion, increase in pain, worsening redness, warmth, discharge. 09/07/2017 Appointment: Brianna Otoole WPtel:[phone] (10 min) Simple 09/07/2017 Patient Education: Patient Medication Summary Completed 09/07/2017 Visit Plan: Lipoma - left ankle - talk to dr. barnes about possible surgery/laser for treatment of lipoma. Fatigue/malaise -Pt was advsied to ask the [employer] Repairer the following: ask the heart doctor if there is an alternative to the amiodarone - you may be having side effects from the medication causing you to have pruritus (itching) and feeling like you have body aches, muscle aches, joint pain, fatigue, weight loss (decreased appetite), and pneumonia like symptoms. Congestion - claritin 10mg daily. 08/30/2017 Appointment: Yarely Vega WPtel: [phone] [facility] (15 min) Moderate 08/30/2017 Patient Education: Patient Medication Summary Completed 08/30/2017 Appointment: Injection 08/24/2017 Appointment: Yarely Vega WPtel: [facility]8 [facility] (15 min) Moderate [...] mucinex 07/06/2017 Appointment: Yarely Vega WPtel: [phone] [facility] (15 min) Moderate 07/06/2017 Patient Education: [...] Otoole WPtel: [phone] [facility] (15 min) Moderate 06/20/2017 Patient Education: Patient [...] Appointment: Bucky 06/05/2017 Appointment: Brianna Otoole WPtel: [phone] [facility] [facility] - Annual Wellness Visit 06/05/2017 Patient Education: [...] 3 months or q 6 m [facility] based on previous levels of control. 05/25/2017 Appointment: Yarely Vega WPtel[facility] ([facility] min) Moderate 05/25/2017 Patient [...] wall. Fatigue - pt to discuss with [employer]set Repairer about the possibility of amiodarone causing her fatigue/malaise. 03/23/2017 Appointment: Gary Yarely [facility]Ptel[phone] [facility] [place] (15 min) Moderate 03/23/2017 [...] daily. 01/23/2017 Appointment: Yarely Vega WPtel: [phone] [facility] (15 min) Moderate 01/23/2017 Patient Education: [...] improve. 11/02/2016 Appointment: Brianna Otoole WPtel: [phone] (15 min) Moderate 11/02/2016 Patient [...] carafate 09/29/2016 Appointment: Yarely Vega WPtel: [phone] [facility] [place] (15 min) Moderate 09/29/2016 Patient Education: Patient Medication Summary Completed 09/29/2016 Appointment: Yarely Vega WPtel: [phone] [facility] [place] (15 min) Moderate 09/27/2016 Appointment: [facility]arely [facility]ega [facility]Ptel[facility] [phone] [facility] [place] (15 min) Moderate 09/20/2016 Appointment: [facility]arely [facility]ega [facility]Ptel: [phone] [facility] [place] (15 min) Moderate 09/20/2016 Patient Education: Patient Medication Summary Completed 09/06/2016 Appointment: [facility]arely [facility]ega [facility]Ptel[phone] [facility] [place] (15 min) Moderate 08/30/2016 [...] concerns. 07/26/2016 Appointment: Yarely Vega [facility]Ptel[phone] [facility] (15 min) Moderate 07/26/2016 Patient [...] surrogate. 05/30/2016 Appointment: Brianna Otoole WPtel: [phone] [facility] [facility] - Annual Wellness Visit 05/30/2016 Patient Education: [...] bedtime 05/25/2016 Appointment: Yarely [facility]ega [facility]Ptel[phone] [facility] (15 min) Moderate 05/25/2016 Patient Education: Patient Medication Summary Completed 05/25/2016 Patient Education: Obesity Completed 05/25/2016 Care Plan: Referral Order SNOMED-CT : [id number] Pending 05/25/2016 Appointment: Injection 05/10/2016 Patient Education: Patient Medication Summary Completed 05/10/2016 Appointment: Injection 04/26/2016 Patient Education: Patient Medication Summary Completed 04/26/2016 Appointment: Injection 04/11/2016 Patient Education: Patient Medication Summary Completed 04/11/2016 Appointment: Injection 03/31/2016 Patient Education: Patient Medication Summary Completed 03/31/2016 Patient Education: Patient Medication Summary Completed 03/22/2016 Care Plan: [facility] [address]-6 Pending 03/22/2016 Appointment: Injection 03/15/2016 Patient Education: [...] concerns. 02/25/2016 Appointment: Brianna Otoole WPtel: [phone] (15 min) Moderate 02/25/2016 Patient [...] the patients recent sleep study - recommended [facility] patient eval of pt - nocturnal [...] the patients recent sleep study - recommended [facility] eval of pt - nocturnal [...] case with Faiza's daughter who had left [facility]. She is interested in looking at assisted living facilities for her mom as Faiza's family is for assisted living placement sooner rather than later. 10/12/2015 Appointment: Yarely Vega WPtel: [facility] (15 min) Moderate 10/12/2015 Patient [...] Completed 08/17/2015 Appointment: Yarely Vega WPtel: [phone] [facility] (15 min) Moderate 08/11/2015 Appointment: [...] 2 05/19/2015 Appointment: Yarely Vega WPtel: [phone] [facility] (30 min) Complex 05/19/2015 Patient [...] alprazolam. 01/13/2015 Appointment: Yarely Vega WPtel: [facility] (15 min) Moderate 01/13/2015 Patient [...] medications. 12/16/2014 Appointment: Janet Fam WPtel: [facility] [place] ([place] New Patient 12/16/2014 [...] case with Faiza's daughter who [facility]. She is interested in looking at assisted living facilities for her mom as Faiza's family is for assisted living placement sooner rather than later. decrease topamax to one pill nightly . [...] the consequences of over-medication. . b12 injection . Chest Pain - pt states that [...] DOPA paperwork for health care surrogate. . Nfjxvr-[id number] protonix-follow up with Dr Navarro as scheduled Cough-recent bronchitis-symptoms improved-call if symptoms do not completely resolve . Skin tear and Cellulitis - The patient was instructed in appropriate wound care. The patient was instructed to use the antibiotic ointment as per RX. The patient is to call for any change in symptoms, increase in size of the lesion, increase in pain, worsening redness, warmth, discharge. . Low back pain- ongoing - will [...] Fatigue/malaise -Pt was advsied to ask the [employer] Repairer the following: ask the heart doctor if [...] if their heart rate is becoming uncontrolled. change priolosec to bedtime to see if [...] Fatigue/malaise -Pt was advsied to ask the [employer] Repairer the following: ask the heart doctor if [...] the patients recent sleep study - recommended [facility] patient eval of pt - nocturnal [...] the patients recent sleep study - recommended [facility] patient eval of pt - nocturnal [...] her DOPA paperwork for health care surrogate. CLARITIN FLONASE KENALOG INJECTION TODAY CALL IF SYMPTOMS DO NOT RESOLVE . URI - Pt advised to increase fluids, vitamin C. Discussed natural and expected course of this diagnosis and need to alert me if symptoms do not follow expected course, or if any worse. . Bronchitis - acute case of bronchitis identified. Pt has been given antibiotics, breathing treatments as appropriate, and pt has been instructed to call if symptoms are not improved, or if symptoms acutely worsen. Cough - rx for antibiotics as well as cough medication. Reminder - please take the TOPAMAX daily [...] control. headaches - take topamax at bedtime womens probiotic - take one pill daily. [...] control. Abdominal pain - continue with carafate talk to Heart doctor about possible amiodarone [...] wall. Fatigue - pt to discuss with [employer] Repairer about the possibility of amiodarone causing her [...]
--- OUTSIDE RECORDS SUMMARY | 2018-12-05 19:27 | XMS REPORT | CCD ---
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 Name Role Phone PP Unavailable CCM Unavailable Summary Purpose Interface Exchange Insurance Providers Payer name Policy type / Coverage type Covered republican ID Effective Begin Date Effective End Date WPS Medicare Part B Medicare Part B [id number] Unknown Principal Life Insurance Medicare Part B [id number] Unknown Family history Brother Diagnosis Age At Onset Heart Attack Unknown Mother Diagnosis Age At Onset Hypertension Unknown kidney disease Unknown Stroke Unknown Father Diagnosis Age At Onset Arthritis Unknown Social History Social History Element Codes Description Effective Dates Employment Unknown Retired worked at [employer] 11/20/2017 Marital status Unknown Single 12/16/[address]: 9336520 Former smoker 12/16/[address]: 106147744 Never drinks alcohol 12/16/2014 Allergies, Adverse Reactions, Alerts Substance Reaction Codes Entered Date Inactivated Date Status CODEINE RxNorm: 2670 05/25/2016 No Inactive Date Active ciprofloxacin RxNorm: 57127 12/16/2014 No Inactive Date Active MORPHINE SULFATE [...] (vit B-12) 1,000 mcg/mL injection solution RxNorm: 380657 Milliliter(s) Inj 06/06/2018 06/06/2018 Inactive alprazolam 0.25 mg tablet RxNorm: 821720 1 Tablet(s) PO BID 05/25/2018 08/22/2018 Active hydrocodone 5 mg-acetaminophen 325 mg tablet RxNorm: 765789 1-2 Tablet(s) PO Q6 as needed for pain 05/24/2018 06/22/2018 Active cyanocobalamin (vit B-12) 1,000 mcg/mL injection solution RxNorm: 385369 Milliliter(s) Inj 05/24/2018 05/24/2018 Inactive cyanocobalamin (vit B-12) 1,000 mcg/mL injection solution RxNorm: 168977 Milliliter(s) Inj 05/09/2018 05/09/2018 Inactive Claritin 10 mg tablet RxNorm: 643578 TAKE 1 TABLET BY MOUTH ONCE DAILY 05/08/2018 05/02/2019 Active Generic For:CLARITIN 10MG 05/07/2018 9:13:47 AM cyanocobalamin (vit B-12) 1,000 mcg/mL injection solution RxNorm: 602311 INJECT ONE 1 ML EVERY TWO WEEKS 05/03/2018 04/03/2019 Active 05/03/2018 9:13:42 AM Mobic 15 mg tablet RxNorm: 225911 Tablet(s) 1 Tablet(s) PO daily 04/26/2018 04/20/2019 Active buspirone 15 mg tablet RxNorm: 578776 Tablet(s) TAKE 1 TABLET BY MOUTH TWICE DAILY 04/26/2018 04/20/2019 Active Generic For:BUSPAR 15MG 05/31/2017 9:19:20 AM Norvasc 5 mg tablet RxNorm: 180309 Tablet(s) 1 Tablet(s) PO daily 04/26/2018 04/20/2019 Active cyanocobalamin (vit B-12) 1,000 mcg/mL injection solution RxNorm: 594450 Milliliter(s) Inj 04/26/2018 04/26/2018 Inactive hydrocodone 5 mg-acetaminophen 325 mg tablet RxNorm: 308855 1-2 Tablet(s) PO Q6 as needed for pain 04/25/2018 05/23/2018 Inactive cyanocobalamin (vit B-12) 1,000 mcg/mL injection solution RxNorm: 238817 Milliliter(s) Inj 04/12/2018 04/12/2018 Inactive Topamax 25 mg tablet RxNorm: 154110 1 Tablet(s) PO BID 04/09/2018 05/02/2018 Inactive Generic For:TOPAMAX 25MG 12/06/2016 9:15:13 AM Zoloft 50 mg tablet RxNorm: 392061 TAKE 1 TABLET BY MOUTH ONCE DAILY 04/04/2018 12/29/2018 Active Generic For:ZOLOFT 50MG 04/04/2018 9:13:25 AM cyanocobalamin (vit B-12) 1,000 mcg/mL injection solution RxNorm: 514849 Milliliter(s) Inj 03/30/2018 03/30/2018 Inactive levothyroxine 125 mcg tablet RxNorm: 512474 TAKE 1 TABLET BY MOUTH EVERY DAY 03/26/2018 09/21/2018 Active Generic For:SYNTHROID 125MCG TAB 03/26/2018 9:15:59 AM liothyronine 5 mcg tablet RxNorm: 459949 TAKE 1 TABLET BY MOUTH TWICE DAILY 03/26/2018 09/21/2018 Active Generic For:CYTOMEL 5MCG 03/26/2018 9:15:54 AM hydrocodone 5 mg-acetaminophen 325 mg tablet RxNorm: 532719 1-2 Tablet(s) PO Q6 as needed for pain 03/19/2018 04/17/2018 Inactive cyanocobalamin (vit B-12) 1,000 mcg/mL injection solution RxNorm: 741969 Milliliter(s) Inj 03/16/2018 03/16/2018 Inactive Flonase Allergy Relief 50 mcg/actuation nasal spray,suspension RxNorm: 5954324 1 [place] NASAL BID 03/05/2018 07/02/2018 Active cyanocobalamin (vit B-12) 1,000 mcg/mL injection solution RxNorm: 417308 Milliliter(s) Inj 03/02/2018 03/02/2018 Inactive alprazolam 0.25 mg tablet RxNorm: 886511 1 Tablet(s) PO BID 02/28/2018 05/27/2018 Inactive cyanocobalamin (vit B-12) 1,000 mcg/mL injection solution RxNorm: 604571 Milliliter(s) Inj 02/08/2018 02/08/2018 Inactive cyanocobalamin (vit B-12) 1,000 mcg/mL injection solution RxNorm: 389208 Milliliter(s) Inj 01/24/2018 01/24/2018 Inactive albuterol sulfate 2.5 mg/3 mL (0.083 %) solution for nebulization RxNorm: 078164 3 Milliliter(s) INH Q6 PRN 01/24/2018 05/02/2018 Inactive Claritin 10 mg tablet RxNorm: 274626 1 Tablet(s) PO daily 01/15/2018 05/07/2018 Inactive cyanocobalamin (vit B-12) 1,000 mcg/mL injection solution RxNorm: 123927 Milliliter(s) Inj 01/10/2018 01/10/2018 Inactive hydrocodone 5 mg-acetaminophen 325 mg tablet RxNorm: 232198 1-2 Tablet(s) PO Q6 as needed for pain 01/09/2018 02/07/2018 Inactive cyanocobalamin (vit B-12) 1,000 mcg/mL injection solution RxNorm: 678367 Milliliter(s) Inj 12/27/2017 12/27/2017 Inactive cyanocobalamin (vit B-12) 1,000 mcg/mL injection solution RxNorm: 599363 1 Milliliter(s) Inj 12/12/2017 12/12/2017 Inactive Zofran ODT 4 mg disintegrating tablet RxNorm: 453768 1 Tablet(s) PO TID as needed 12/08/2017 12/09/2017 Inactive hydrocodone 2.5 mg-guaifenesin 200 mg/5 mL oral solution RxNorm: 605882 5 Milliliter(s) PO 12/04/2017 05/06/2018 Inactive doxycycline hyclate 100 mg capsule RxNorm: 4645977 1 Capsule(s) PO BID 12/04/2017 12/13/2017 Inactive cyanocobalamin (vit B-12) 1,000 mcg/mL injection solution RxNorm: 796830 Milliliter(s) Inj 12/01/2017 12/01/2017 Inactive Flonase Allergy Relief 50 mcg/actuation nasal spray,suspension RxNorm: 5573731 1 [place] NASAL BID 11/20/2017 2018 Inactive cyanocobalamin (vit B-12) 1,000 mcg/mL injection solution RxNorm: 900386 1 Milliliter(s) Inj 11/17/2017 11/17/2017 Inactive hydrocodone 5 mg-acetaminophen 325 mg tablet RxNorm: 578414 1-2 Tablet(s) PO Q6 as needed for pain 11/16/2017 12/15/2017 Inactive cyanocobalamin (vit B-12) 1,000 mcg/mL injection solution RxNorm: 628306 1 Milliliter(s) Inj 11/02/2017 11/02/2017 Inactive hydrocodone 5 mg-acetaminophen 325 mg tablet RxNorm: 547093 1-2 Tablet(s) PO Q6 as needed for pain 10/25/2017 11/15/2017 Inactive Claritin 10 mg tablet RxNorm: 786677 1 Tablet(s) PO daily 10/25/2017 11/19/2017 Inactive albuterol sulfate 2.5 mg/3 mL (0.083 %) solution for nebulization RxNorm: 987246 3 Milliliter(s) INH Q6 PRN 10/25/2017 01/23/2018 Inactive Claritin 10 mg tablet RxNorm: 545848 1 Tablet(s) PO daily 10/25/2017 10/24/2017 Inactive cyanocobalamin (vit B-12) 1,000 mcg/mL injection solution RxNorm: 620635 1 Milliliter(s) Inj 10/20/2017 10/20/2017 Inactive Zoloft 50 mg tablet RxNorm: 699201 TAKE 1 TABLET BY MOUTH ONCE DAILY 10/13/2017 04/03/2018 Inactive Generic For:ZOLOFT 50MG 10/13/2017 8:59:44 AM cyanocobalamin (vit B-12) 1,000 mcg/mL injection solution RxNorm: 505871 Milliliter(s) Inj 10/06/2017 10/06/2017 Inactive liothyronine 5 mcg tablet RxNorm: 510971 TAKE 1 TABLET BY MOUTH TWICE DAILY 10/03/2017 03/25/2018 Inactive Generic For:CYTOMEL 5MCG 10/03/2017 9:13:38 AM cyanocobalamin (vit B-12) 1,000 mcg/mL injection solution RxNorm: 846016 Milliliter(s) Inj 09/21/2017 09/21/2017 Inactive albuterol sulfate 2.5 mg/3 mL (0.083 %) solution for nebulization RxNorm: 043296 3 Milliliter(s) INH Q6 PRN 09/21/2017 10/24/2017 Inactive hydrocodone 5 mg-acetaminophen 325 mg tablet RxNorm: 956564 1-2 Tablet(s) PO Q6 as needed for pain 09/21/2017 10/20/2017 Inactive Kenalog 40 mg/mL suspension for injection RxNorm: 0037534 Milliliter(s) Inj 09/15/2017 09/15/2017 Inactive Keflex 500 mg capsule RxNorm: 481461 1 Capsule(s) PO TID 09/07/2017 09/16/2017 Inactive Please deliver to patient cyanocobalamin (vit B-12) 1,000 mcg/mL injection solution RxNorm: 489284 Milliliter(s) Inj 09/07/2017 09/07/2017 Inactive Aricept 10 mg tablet RxNorm: 473891 1 Tablet(s) PO daily 09/06/2017 08/31/2018 Active alprazolam 0.25 mg tablet RxNorm: 393319 1 Tablet(s) PO BID 09/06/2017 02/27/2018 Inactive hydrocodone 5 mg-acetaminophen 325 mg tablet RxNorm: 202019 1-2 Tablet(s) PO Q6 as needed for pain 08/24/2017 09/20/2017 Inactive cyanocobalamin (vit B-12) 1,000 mcg/mL injection solution RxNorm: 686693 Milliliter(s) Inj 08/24/2017 08/24/2017 Inactive Norvasc 5 mg tablet RxNorm: 646050 1 Tablet(s) PO daily 08/18/2017 04/25/2018 Inactive nystatin 100,000 unit/gram topical powder RxNorm: 262172 1 Gram(s) TOP QID 08/17/2017 08/26/2017 Inactive hydrocodone 5 mg-acetaminophen 325 mg tablet RxNorm: 696773 1-2 Tablet(s) PO Q6 as needed for pain 07/25/2017 08/23/2017 Inactive Tamiflu 75 mg capsule RxNorm: 563271 1 Capsule(s) PO BID 07/24/2017 12/11/2017 Inactive nystatin 100,000 unit/gram topical powder RxNorm: 065408 1 Gram(s) TOP QID 07/14/2017 07/22/2017 Inactive levothyroxine 125 mcg tablet RxNorm: 733445 Tablet(s) 1 Tablet(s) PO daily 07/10/2017 01/05/2018 Inactive nystatin 100,000 unit/gram topical powder RxNorm: 051317 1 Gram(s) TOP QID 07/06/2017 07/13/2017 Inactive cyanocobalamin (vit B-12) 1,000 mcg/mL injection solution RxNorm: 247134 Milliliter(s) Inj 07/06/2017 07/06/2017 Inactive Kenalog 40 mg/mL suspension for injection RxNorm: 6651599 1 Milliliter(s) Inj 06/20/2017 06/20/2017 Inactive doxycycline hyclate 100 mg capsule RxNorm: 6941585 1 Capsule(s) PO BID 06/20/2017 06/26/2017 Inactive cyanocobalamin (vit B-12) 1,000 mcg/mL injection solution RxNorm: 813675 Milliliter(s) Inj 06/20/2017 06/20/2017 Inactive Keflex 500 mg capsule RxNorm: 070619 1 Capsule(s) PO TID 06/14/2017 06/23/2017 Inactive Please deliver to patient Mobic 15 mg tablet RxNorm: 328449 1 Tablet(s) PO daily 06/14/2017 04/25/2018 Inactive cyanocobalamin (vit B-12) 1,000 mcg/mL injection solution RxNorm: 224287 Milliliter(s) Inj 06/05/2017 06/05/2017 Inactive buspirone 15 mg tablet RxNorm: 528890 TAKE 1 TABLET BY MOUTH TWICE DAILY 05/31/2017 04/25/2018 Inactive Generic For:BUSPAR 15MG 05/31/2017 9:19:20 AM cyanocobalamin (vit B-12) 1,000 mcg/mL injection solution RxNorm: 466310 Milliliter(s) Inj 05/25/2017 05/25/2017 Inactive hydrocodone 5 mg-acetaminophen 325 mg tablet RxNorm: 863380 1-2 Tablet(s) PO Q6 as needed for pain 05/25/2017 06/23/2017 Inactive amiodarone 200 mg tablet RxNorm: 695383 1/2 Tablet(s) PO daily 05/22/2017 No Stop Date Active cardiology decreased to 100mg daily cyanocobalamin (vit B-12) 1,000 mcg/mL injection solution RxNorm: 242670 Milliliter(s) Inj 05/16/2017 05/16/2017 Inactive Zofran ODT 4 mg disintegrating tablet RxNorm: 518812 1 Tablet(s) PO TID as needed 05/03/2017 05/04/2017 Inactive hydrocodone 5 mg-acetaminophen 325 mg tablet RxNorm: 044045 1-2 Tablet(s) PO Q6 as needed for pain 05/01/2017 05/05/2017 Inactive cyanocobalamin (vit B-12) 1,000 mcg/mL injection solution RxNorm: 685539 1 Milliliter(s) Inj 05/01/2017 05/01/2017 Inactive cyanocobalamin (vit B-12) 1,000 mcg/mL injection solution RxNorm: 103815 INJECT ONE 1 ML EVERY TWO WEEKS 04/26/2017 12/04/2018 Active 04/26/2017 9:08:52 AM Zoloft 50 mg tablet RxNorm: 864682 Tablet(s) TAKE 1 TABLET BY MOUTH DAILY 04/25/2017 10/12/2017 Inactive Generic For:ZOLOFT 50MG cyanocobalamin (vit B-12) 1,000 mcg/mL injection solution RxNorm: 208399 Milliliter(s) Inj 04/18/2017 04/18/2017 Inactive liothyronine 5 mcg tablet RxNorm: 285695 1 Tablet(s) PO BID 04/13/2017 10/02/2017 Inactive cyanocobalamin (vit B-12) 1,000 mcg/mL injection solution RxNorm: 234292 Milliliter(s) Inj 04/06/2017 04/06/2017 Inactive hydrocodone 5 mg-acetaminophen 325 mg tablet RxNorm: 517947 1-2 Tablet(s) PO Q6 as needed for pain 04/06/2017 04/10/2017 Inactive cyanocobalamin (vit B-12) 1,000 mcg/mL injection solution RxNorm: 895690 Milliliter(s) Inj 03/22/2017 03/22/2017 Inactive alprazolam 0.25 mg tablet RxNorm: 403214 1 Tablet(s) PO BID 03/17/2017 12/11/2017 Inactive alprazolam 0.25 mg tablet RxNorm: 916082 1 Tablet(s) PO BID 03/16/2017 09/05/2017 Inactive hydrocodone 5 mg-acetaminophen 325 mg tablet RxNorm: 677155 1-2 Tablet(s) PO Q6 as needed for pain 03/09/2017 03/13/2017 Inactive cyanocobalamin (vit B-12) 1,000 mcg/mL injection solution RxNorm: 373105 Milliliter(s) Inj 03/09/2017 03/09/2017 Inactive cyanocobalamin (vit B-12) 1,000 mcg/mL injection solution RxNorm: 308261 Milliliter(s) Inj 02/23/2017 02/23/2017 Inactive cyanocobalamin (vit B-12) 1,000 mcg/mL injection solution RxNorm: 740423 Milliliter(s) Inj 02/09/2017 02/09/2017 Inactive hydrocodone 5 mg-acetaminophen 325 mg tablet RxNorm: 962287 1-2 Tablet(s) PO Q6 as needed for pain 02/08/2017 02/12/2017 Inactive Topamax 25 mg tablet RxNorm: 951648 1 Tablet(s) PO BID 01/23/2017 05/22/2017 Inactive Generic For:TOPAMAX 25MG 12/06/2016 9:15:13 AM cyanocobalamin (vit B-12) 1,000 mcg/mL injection solution RxNorm: 395525 Milliliter(s) Inj 01/23/2017 01/23/2017 Inactive cyanocobalamin (vit B-12) 1,000 mcg/mL injection solution RxNorm: 689467 Milliliter(s) Inj 01/10/2017 01/10/2017 Inactive hydrocodone 5 mg-acetaminophen 325 mg tablet RxNorm: 452741 1-2 Tablet(s) PO Q6 as needed for pain 01/09/2017 01/13/2017 Inactive cyanocobalamin (vit B-12) 1,000 mcg/mL injection solution RxNorm: 395989 1 Milliliter(s) Inj 12/28/2016 12/28/2016 Inactive cyanocobalamin (vit B-12) 1,000 mcg/mL injection solution RxNorm: 315175 Milliliter(s) Inj 12/14/2016 12/14/2016 Inactive buspirone 15 mg tablet RxNorm: 412090 1 Tablet(s) PO BID 12/12/2016 05/30/2017 Inactive hydrocodone 5 mg-acetaminophen 325 mg tablet RxNorm: 710346 1-2 Tablet(s) PO Q6 as needed for pain 12/08/2016 12/12/2016 Inactive Topamax 25 mg tablet RxNorm: 775136 TAKE 1 TABLET BY MOUTH EVERY DAY AT BEDTIME 12/06/2016 01/22/2017 Inactive Generic For:TOPAMAX 25MG 12/06/2016 9:15:13 AM Lac-Hydrin Five 5 % lotion RxNorm: 684206 1 Gram(s) TOP daily 12/02/2016 05/02/2018 Inactive cyanocobalamin (vit B-12) 1,000 mcg/mL injection solution RxNorm: 175350 Milliliter(s) Inj 11/24/2016 11/24/2016 Inactive Ceftin 500 mg tablet RxNorm: 407576 1 Tablet(s) PO BID 11/11/2016 06/13/2017 Inactive Cipro 500 mg tablet RxNorm: 441378 1 Tablet(s) PO BID 11/11/2016 11/10/2016 Inactive Cipro 500 mg tablet RxNorm: 007374 1 Tablet(s) PO BID 11/11/2016 11/11/2016 Inactive cyanocobalamin (vit B-12) 1,000 mcg/mL injection solution RxNorm: 702085 1 Milliliter(s) Inj 11/07/2016 11/07/2016 Inactive hydrocodone 5 mg-acetaminophen 325 mg tablet RxNorm: 758389 1-2 Tablet(s) PO Q6 as needed for pain 11/02/2016 11/06/2016 Inactive cyanocobalamin (vit B-12) 1,000 mcg/mL injection solution RxNorm: 991434 Milliliter(s) Inj 10/24/2016 10/24/2016 Inactive levothyroxine 125 mcg tablet RxNorm: 544855 Tablet(s) 1 Tablet(s) PO daily 10/24/2016 04/21/2017 Inactive liothyronine 5 mcg tablet RxNorm: 815854 1 Tablet(s) PO BID 10/24/2016 04/12/2017 Inactive hydrocodone 5 mg-acetaminophen 325 mg tablet RxNorm: 573413 1-2 Tablet(s) PO Q6 as needed for pain 10/17/2016 10/21/2016 Inactive Keflex 500 mg capsule RxNorm: 847109 1 Capsule(s) PO TID 10/07/2016 10/06/2016 Inactive Keflex 500 mg capsule RxNorm: 267492 1 Capsule(s) PO TID 10/07/2016 10/16/2016 Inactive Please deliver to patient cyanocobalamin (vit B-12) 1,000 mcg/mL injection solution RxNorm: 867492 1 Milliliter(s) Inj 09/29/2016 09/29/2016 Inactive alprazolam 0.25 mg tablet RxNorm: 302585 1 Tablet(s) PO BID 09/20/2016 03/16/2017 Inactive Cozaar 100 mg tablet RxNorm: 437039 1 Tablet(s) PO daily 09/14/2016 No Stop Date Active metoprolol tartrate 50 mg tablet RxNorm: 260490 1/2 Tablet(s) PO BID 09/14/2016 12/12/2016 Inactive Zoloft 50 mg tablet RxNorm: 027752 Tablet(s) TAKE 1 TABLET BY MOUTH DAILY 09/14/2016 03/12/2017 Inactive Generic For:ZOLOFT 50MG liothyronine 5 mcg tablet RxNorm: 895777 1 Tablet(s) PO BID 09/14/2016 10/23/2016 Inactive Calmoseptine 0.44 %-20.6 % topical ointment RxNorm: 762296 1 Application TOP BID and as needed to sore on buttocks 09/07/2016 No Stop Date Active cyanocobalamin (vit B-12) 1,000 mcg/mL injection solution RxNorm: 851239 Milliliter(s) Inj 08/29/2016 08/29/2016 Inactive hydrocodone 5 mg-acetaminophen 325 mg tablet RxNorm: 718423 1-2 Tablet(s) PO Q6 as needed for pain 08/29/2016 10/16/2016 Inactive levothyroxine 125 mcg tablet RxNorm: 001478 1 Tablet(s) PO daily 08/25/2016 10/23/2016 Inactive Topamax 25 mg tablet RxNorm: 041743 TAKE 1 TABLET BY MOUTH EVERY DAY AT BEDTIME 08/17/2016 12/05/2016 Inactive Generic For:TOPAMAX 25MG 08/17/2016 2:14:37 PM hydrocodone 5 mg-acetaminophen 325 mg tablet RxNorm: 872499 1-2 Tablet(s) PO Q6 as needed for pain 08/11/2016 08/28/2016 Inactive hydrocodone 5 mg-acetaminophen 325 mg tablet RxNorm: 747808 1 -2 Tablet(s) PO Q6 as needed for pain 08/11/2016 08/18/2016 Inactive hydrocodone 5 mg-acetaminophen 325 mg tablet RxNorm: 775870 1 Tablet(s) PO Q6 as needed for pain 08/05/2016 08/10/2016 Inactive cyanocobalamin (vit B-12) 1,000 mcg/mL injection solution RxNorm: 492141 Milliliter(s) Inj 08/04/2016 08/04/2016 Inactive Norvasc 10 mg tablet RxNorm: 308831 1 Tablet(s) PO daily 07/26/2016 07/20/2017 Inactive alprazolam 0.25 mg tablet RxNorm: 660616 1 Tablet(s) PO QHS 07/21/2016 09/19/2016 Inactive Norvasc 5 mg tablet RxNorm: 984788 1 Tablet(s) PO daily 07/21/2016 07/25/2016 Inactive levothyroxine 125 mcg tablet RxNorm: 192796 1 Tablet(s) PO daily 07/21/2016 12/11/2017 Inactive cyanocobalamin (vit B-12) 1,000 mcg/mL injection solution RxNorm: 533861 Milliliter(s) Inj 07/21/2016 07/21/2016 Inactive Zoloft 50 mg tablet RxNorm: 236427 Tablet(s) TAKE 1 TABLET BY MOUTH DAILY 07/21/2016 09/13/2016 Inactive Generic For:ZOLOFT 50MG cyanocobalamin (vit B-12) 1,000 mcg/mL injection solution RxNorm: 081914 1 Milliliter(s) Inj 07/05/2016 07/05/2016 Inactive cyanocobalamin (vit B-12) 1,000 mcg/mL injection solution RxNorm: 781073 1 Milliliter(s) Inj 06/22/2016 06/22/2016 Inactive cyanocobalamin (vit B-12) 1,000 mcg/mL injection solution RxNorm: 678406 Milliliter(s) Inj 06/09/2016 06/09/2016 Inactive Aricept 10 mg tablet RxNorm: 034393 1 Tablet(s) PO daily 05/27/2016 05/21/2017 Inactive Mobic 15 mg tablet RxNorm: 972040 1 Tablet(s) PO daily 05/27/2016 05/21/2017 Inactive levothyroxine 125 mcg tablet RxNorm: 281154 1 Tablet(s) PO daily 05/25/2016 07/20/2016 Inactive cyanocobalamin (vit B-12) 1,000 mcg/mL injection solution RxNorm: 576416 1 Milliliter(s) Inj 05/25/2016 05/25/2016 Inactive doxycycline hyclate 100 mg capsule RxNorm: 1562993 1 Capsule(s) PO BID 05/16/2016 05/15/2016 Inactive doxycycline hyclate 100 mg capsule RxNorm: 7535896 1 Capsule(s) PO BID 05/16/2016 05/22/2016 Inactive cyanocobalamin (vit B-12) 1,000 mcg/mL injection solution RxNorm: 530334 Milliliter(s) Inj 05/10/2016 05/10/2016 Inactive cyanocobalamin (vit B-12) 1,000 mcg/mL injection solution RxNorm: 981649 Milliliter(s) Inj 04/26/2016 04/26/2016 Inactive Topamax 25 mg tablet RxNorm: 476172 1 Tablet(s) PO QPM 04/22/2016 08/16/2016 Inactive cyanocobalamin (vit B-12) 1,000 mcg/mL injection solution RxNorm: 200966 Milliliter(s) 1 Milliliter(s) Inj [id number] 04/11/2016 12/31/2017 Inactive liothyronine 5 mcg tablet RxNorm: 884802 1 Tablet(s) PO BID 04/11/2016 09/13/2016 Inactive cyanocobalamin (vit B-12) 1,000 mcg/mL injection solution RxNorm: 249426 Milliliter(s) Inj 04/11/2016 04/11/2016 Inactive cyanocobalamin (vit B-12) 1,000 mcg/mL injection solution RxNorm: 172210 Milliliter(s) Inj 03/31/2016 03/31/2016 Inactive cyanocobalamin (vit B-12) 1,000 mcg/mL injection solution RxNorm: 439652 1 Milliliter(s) Inj 03/15/2016 03/15/2016 Inactive levothyroxine 125 mcg tablet RxNorm: 091511 1 Tablet(s) PO daily 2016 03/03/2016 Inactive levothyroxine 125 mcg tablet RxNorm: 983271 1 Tablet(s) PO daily 2016 05/24/2016 Inactive cyanocobalamin (vit B-12) 1,000 mcg/mL injection solution RxNorm: 168294 Milliliter(s) Inj 02/25/2016 02/25/2016 Inactive cyanocobalamin (vit B-12) 1,000 mcg/mL injection solution RxNorm: 724372 1 Milliliter(s) Inj 02/02/2016 02/02/2016 Inactive sucralfate 1 gram tablet RxNorm: 547604 1 Tablet(s) PO QHS 01/25/2016 No Stop Date Active amiodarone 200 mg tablet RxNorm: 013870 1/2 Tablet(s) PO BID 01/25/2016 05/21/2017 Inactive cyanocobalamin (vit B-12) 1,000 mcg/mL injection solution RxNorm: 738540 Milliliter(s) Inj 01/18/2016 01/18/2016 Inactive cyanocobalamin (vit B-12) 1,000 mcg/mL injection solution RxNorm: 595988 Milliliter(s) Inj 12/29/2015 12/29/2015 Inactive Topamax 25 mg tablet RxNorm: 726557 1 Tablet(s) PO QPM 12/08/2015 04/05/2016 Inactive cyanocobalamin (vit B-12) 1,000 mcg/mL injection solution RxNorm: 666735 Milliliter(s) Inj 12/08/2015 12/08/2015 Inactive Bactrim DS 800 mg-160 mg tablet RxNorm: 467839 1 Tablet(s) PO BID 11/23/2015 11/22/2015 Inactive cyanocobalamin (vit B-12) 1,000 mcg/mL injection solution RxNorm: 506183 Milliliter(s) Inj 11/23/2015 11/23/2015 Inactive Bactrim DS 800 mg-160 mg tablet RxNorm: 183222 1 Tablet(s) PO BID 11/23/2015 11/29/2015 Inactive cyanocobalamin (vit B-12) 1,000 mcg/mL injection solution RxNorm: 607595 Milliliter(s) Inj 11/11/2015 11/11/2015 Inactive amoxicillin 500 mg capsule RxNorm: 256114 1 Capsule(s) PO TID 11/10/2015 11/19/2015 Inactive Zithromax Z-Henrique 250 mg tablet RxNorm: 104996 1 Tablet(s) PO UD 11/10/2015 01/24/2016 Inactive zpack x 1 amoxicillin 500 mg capsule RxNorm: 229417 1 Capsule(s) PO TID 11/10/2015 11/09/2015 Inactive cyanocobalamin (vit B-12) 1,000 mcg/mL injection solution RxNorm: 374217 1 Milliliter(s) Inj 10/29/2015 10/29/2015 Inactive [place] 3 capsule RxNorm: 1 Capsule(s) PO QAM , 2 Capsules at noon, 1 Capsule QHS 10/13/2015 No Stop Date Active potassium chloride ER 20 mEq tablet,extended release RxNorm: 569113 2 Tablet(s) PO daily at noon 10/13/2015 No Stop Date Active alprazolam 0.25 mg tablet RxNorm: 192005 1 Tablet(s) PO QHS 10/13/2015 07/20/2016 Inactive amiodarone 200 mg tablet RxNorm: 243662 1 Tablet(s) PO BID 10/13/2015 01/24/2016 Inactive cyanocobalamin (vit B-12) 1,000 mcg/mL injection solution RxNorm: 025635 1 Milliliter(s) Inj 10/12/2015 10/12/2015 Inactive Zofran 4 mg tablet RxNorm: 320104 1 Tablet(s) PO daily as needed 10/07/2015 05/24/2016 Inactive Zoloft 50 mg tablet RxNorm: 160425 TAKE 1 TABLET BY MOUTH DAILY 10/05/2015 05/01/2016 Inactive Generic For:ZOLOFT 50MG cyanocobalamin (vit B-12) 1,000 mcg/mL injection solution RxNorm: 044064 1 Milliliter(s) Inj 09/29/2015 09/29/2015 Inactive cyanocobalamin (vit B-12) 1,000 mcg/mL injection solution RxNorm: 834883 1 Milliliter(s) Inj 09/17/2015 09/17/2015 Inactive Norvasc 5 mg tablet RxNorm: 646409 1 Tablet(s) PO daily 09/17/2015 07/20/2016 Inactive liothyronine 5 mcg tablet RxNorm: 579475 1 Tablet(s) PO BID 09/17/2015 03/14/2016 Inactive Zoloft 50 mg tablet RxNorm: 572701 1 Tablet(s) PO daily 09/17/2015 10/04/2015 Inactive buspirone 15 mg tablet RxNorm: 299155 1 Tablet(s) PO BID 09/17/2015 09/10/2016 Inactive buspirone 15 mg tablet RxNorm: 558222 1 Tablet(s) PO BID 09/14/2015 09/16/2015 Inactive Topamax 25 mg tablet RxNorm: 823713 1 Tablet(s) PO QPM 09/03/2015 12/07/2015 Inactive cyanocobalamin (vit B-12) 1,000 mcg/mL injection solution RxNorm: 262206 1 Milliliter(s) Inj 09/03/2015 09/03/2015 Inactive cyanocobalamin (vit B-12) 1,000 mcg/mL injection solution RxNorm: 883385 Milliliter(s) Inj 08/17/2015 08/17/2015 Inactive cyanocobalamin (vit B-12) 1,000 mcg/mL injection solution RxNorm: 170435 Milliliter(s) Inj 08/06/2015 08/06/2015 Inactive levothyroxine 150 mcg tablet RxNorm: 950989 1 Tablet(s) PO daily 07/22/2015 03/03/2016 Inactive Aricept 10 mg tablet RxNorm: 833371 1 Tablet(s) PO daily 07/22/2015 05/26/2016 Inactive Mobic 15 mg tablet RxNorm: 924838 1 Tablet(s) PO daily 07/22/2015 05/26/2016 Inactive cyanocobalamin (vit B-12) 1,000 mcg/mL injection solution RxNorm: 202314 Milliliter(s) Inj 07/22/2015 07/22/2015 Inactive liothyronine 5 mcg tablet RxNorm: 364742 1 Tablet(s) PO BID 07/22/2015 09/16/2015 Inactive cyanocobalamin (vit B-12) 1,000 mcg/mL injection solution RxNorm: 627111 Milliliter(s) Inj 07/08/2015 07/08/2015 Inactive cyanocobalamin (vit B-12) 1,000 mcg/mL injection solution RxNorm: 262680 Milliliter(s) Inj 06/23/2015 06/23/2015 Inactive cyanocobalamin (vit B-12) 1,000 mcg/mL injection solution RxNorm: 525027 1 Milliliter(s) Inj 06/08/2015 06/08/2015 Inactive cyanocobalamin (vit B-12) 1,000 mcg/mL injection solution RxNorm: 605813 Milliliter(s) Inj 05/27/2015 05/27/2015 Inactive Aricept 10 mg tablet RxNorm: 513597 1 Tablet(s) PO daily 05/20/2015 07/21/2015 Inactive Zofran 4 mg tablet RxNorm: 250759 1 Tablet(s) PO daily as needed 05/20/2015 06/18/2015 Inactive alprazolam 0.25 mg tablet RxNorm: 741426 1 Tablet(s) PO BID 05/20/2015 10/12/2015 Inactive Mobic 15 mg tablet RxNorm: 219720 1 Tablet(s) PO daily 05/20/2015 07/21/2015 Inactive tramadol ER 100 mg tablet,extended release 24 hr RxNorm: 540803 1 Tablet(s) PO Q6 as needed 05/13/2015 No Stop Date Active cyanocobalamin (vit B-12) 1,000 mcg/mL injection solution RxNorm: 944635 1 Milliliter(s) Inj 05/12/2015 05/12/2015 Inactive Topamax 25 mg tablet RxNorm: 714853 1 Tablet(s) PO BID (start at one pill at bedtime x 1week then twice daily thereafter) 05/12/2015 09/02/2015 Inactive cyanocobalamin (vit B-12) 1,000 mcg/mL injection kit RxNorm: 580759 kit Inj 04/30/2015 04/30/2015 Inactive cyanocobalamin (vit B-12) 1,000 mcg/mL injection solution RxNorm: 341253 Milliliter(s) Inj 04/16/2015 04/16/2015 Inactive levothyroxine 150 mcg tablet RxNorm: 125512 1 Tablet(s) PO daily 04/08/2015 07/21/2015 Inactive cyanocobalamin (vit B-12) 1,000 mcg/mL injection solution RxNorm: 156636 Milliliter(s) 1 Milliliter(s) Inj R4facmg 04/08/2015 04/10/2016 Inactive Cytomel 5 mcg tablet RxNorm: 017759 1 Tablet(s) PO BID 04/08/2015 10/12/2015 Inactive Cytomel 5 mcg tablet RxNorm: 296885 1 Tablet(s) PO BID 04/07/2015 04/07/2015 Inactive Cytomel 5 mcg tablet RxNorm: 216506 1 Tablet(s) PO BID 04/07/2015 04/06/2015 Inactive cyanocobalamin (vit B-12) 1,000 mcg/mL injection solution RxNorm: 635637 Milliliter(s) Inj 04/02/2015 04/02/2015 Inactive cyanocobalamin (vit B-12) 1,000 mcg/mL injection solution RxNorm: 807218 Milliliter(s) Inj 03/18/2015 03/18/2015 Inactive cyanocobalamin (vit B-12) 1,000 mcg/mL injection solution RxNorm: 972544 Milliliter(s) 1 Milliliter(s) Inj I7ndmcc 03/18/2015 04/07/2015 Inactive cyanocobalamin (vit B-12) 1,000 mcg/mL injection solution RxNorm: 493138 1 Milliliter(s) Inj I6yjuhm 03/16/2015 03/17/2015 Inactive cyanocobalamin (vit B-12) 1,000 mcg/mL injection solution RxNorm: 220280 Milliliter(s) Inj 03/03/2015 03/03/2015 Inactive cyanocobalamin (vit B-12) 1,000 mcg/mL injection solution RxNorm: 653069 Milliliter(s) Inj 02/18/2015 02/18/2015 Inactive cyanocobalamin (vit B-12) 1,000 mcg/mL injection solution RxNorm: 145406 Milliliter(s) Inj 02/04/2015 02/04/2015 Inactive cyanocobalamin (vit B-12) 1,000 mcg/mL injection solution RxNorm: 814014 Milliliter(s) Inj 01/22/2015 01/22/2015 Inactive Lac-Hydrin Five 5 % lotion RxNorm: 280825 1 TOP daily 01/13/2015 03/13/2015 Inactive Lac-Hydrin Five 5 % lotion RxNorm: 385120 1 TOP daily 01/13/2015 01/12/2015 Inactive cyanocobalamin (vit B-12) 1,000 mcg/mL injection solution RxNorm: 098270 Milliliter(s) Inj 01/08/2015 01/08/2015 Inactive cyanocobalamin (vit B-12) 1,000 mcg/mL injection solution RxNorm: 786846 Milliliter(s) Inj 12/25/2014 12/25/2014 Inactive levothyroxine 150 mcg tablet RxNorm: 781787 1 Tablet(s) PO daily 12/24/2014 04/07/2015 Inactive tramadol 50 mg tablet RxNorm: 376827 1-2 Tablet(s) PO Q6 as needed 12/17/2014 05/12/2015 Inactive alprazolam 0.25 mg tablet RxNorm: 406781 1 Tablet(s) PO BID 12/17/2014 04/15/2015 Inactive Pradaxa 150 mg capsule RxNorm: 0275340 1 Capsule(s) PO BID 12/16/2014 No Stop Date Active metoprolol tartrate 50 mg tablet RxNorm: 700034 1/2 Tablet(s) PO BID 12/16/2014 09/13/2016 Inactive buspirone 15 mg tablet RxNorm: 649812 1 Tablet(s) PO BID 12/16/2014 09/13/2015 Inactive cyanocobalamin (vit B-12) 1,000 mcg/mL injection solution RxNorm: 575500 1 Milliliter(s) Inj [id number] 12/16/2014 03/15/2015 Inactive cyanocobalamin (vit B-12) 1,000 mcg/mL injection solution RxNorm: 394619 1 Milliliter(s) Inj R8gdtyd 12/16/2014 12/15/2014 Inactive sucralfate 1 gram tablet RxNorm: 556056 Tablet(s) PO QID 12/16/2014 12/10/2015 Inactive cyanocobalamin (vit B-12) 1,000 mcg/mL injection solution RxNorm: 888304 Milliliter(s) Inj 12/10/2014 12/10/2014 Inactive cyanocobalamin (vit B-12) 1,000 mcg/mL injection solution RxNorm: 961838 Milliliter(s) Inj 11/26/2014 11/26/2014 Inactive Zoloft 50 mg tablet RxNorm: 710898 1 Tablet(s) PO daily 11/24/2014 06/21/2015 Inactive Zoloft 50 mg tablet RxNorm: 327068 1 Tablet(s) PO daily 11/24/2014 11/23/2014 Inactive cyanocobalamin (vit B-12) 1,000 mcg/mL injection kit RxNorm: 674329 Milliliter(s) Inj 11/12/2014 11/12/2014 Inactive cyanocobalamin (vit B-12) 1,000 mcg/mL injection solution RxNorm: 238883 Milliliter(s) Inj 10/28/2014 10/28/2014 Inactive [SAVINGS FOR NON-COVERED DRUGS -- [id number], PCN: [id number], Group: [id number], ID# [id number], Questions: . THIS IS NOT INSURANCE.] promethazine oral RxNorm: 8745 oral No Start Date Active digoxin 125 mcg tablet RxNorm: 919596 Tablet(s) PO every other day No Start Date Active furosemide 40 mg tablet RxNorm: 999035 1 Tablet(s) PO daily No Start Date Active Vitamin D3 5,000 unit tablet RxNorm: 150514 1 Tablet(s) PO daily No Start Date Active erythromycin 250 mg capsule,delayed release RxNorm: 156619 1 Capsule(s) PO AC No Start Date Active Protonix 40 mg tablet,delayed release RxNorm: 133580 1 Tablet(s) PO BID No Start Date Active Cozaar 100 mg tablet RxNorm: 786098 1 Tablet(s) PO daily No Start Date 09/13/2016 Inactive sucralfate 1 gram tablet RxNorm: 147668 Tablet(s) PO QID No Start Date 12/15/2014 Inactive amiodarone 200 mg tablet RxNorm: 652134 2 Tablet(s) PO daily No Start Date 10/13/2015 Inactive buspirone 15 mg tablet RxNorm: 833988 1 Tablet(s) PO daily No Start Date 12/15/2014 Inactive potassium chloride ER 20 mEq tablet,extended release RxNorm: 087012 1 Tablet(s) PO daily No Start Date 10/12/2015 Inactive Prilosec 40 mg capsule,delayed release RxNorm: 859836 1 Capsule(s) PO daily No Start Date 09/02/2015 Inactive [place] 3 capsule RxNorm: Capsule(s) PO No Start Date 10/12/2015 Inactive alprazolam 0.25 mg tablet RxNorm: 265407 Tablet(s) PO QHS No Start Date 12/16/2014 Inactive levothyroxine 125 mcg tablet RxNorm: 038010 1 Tablet(s) PO daily No Start Date 12/23/2014 Inactive liothyronine 5 mcg tablet RxNorm: 145117 1 Tablet(s) PO BID No Start Date 07/21/2015 Inactive Mobic 15 mg tablet RxNorm: 673638 Tablet(s) PO daily No Start Date 05/19/2015 Inactive Norvasc 5 mg tablet RxNorm: 228592 1 Tablet(s) PO daily No Start Date 09/16/2015 Inactive Zofran 4 mg tablet RxNorm: 478097 1 Tablet(s) PO daily as needed No Start Date 05/19/2015 Inactive Tamiflu 75 mg capsule RxNorm: 364429 1 Capsule(s) PO BID No Start Date 07/23/2017 Inactive tramadol 50 mg tablet RxNorm: 353805 1 Tablet(s) PO daily as needed No Start Date 12/16/2014 Inactive amiodarone 200 mg tablet RxNorm: 039221 1 Tablet(s) PO daily No Start Date 10/12/2015 Inactive Zofran ODT 4 mg disintegrating tablet RxNorm: 849354 1 Tablet(s) PO TID as needed No Start Date 05/02/2017 Inactive albuterol sulfate 2.5 mg/3 mL (0.083 %) solution for nebulization RxNorm: 987435 3 Milliliter(s) INH Q6 PRN No Start Date 09/20/2017 Inactive meclizine 25 mg tablet RxNorm: 865356 Tablet(s) PO as needed No Start Date 05/24/2016 Inactive Pradaxa 150 mg capsule RxNorm: 0401207 1 Capsule(s) PO daily No Start Date 12/15/2014 Inactive metoprolol tartrate 50 mg tablet RxNorm: 084137 1/2 Tablet(s) PO No Start Date 12/15/2014 Inactive Aricept 10 mg tablet RxNorm: 580761 Tablet(s) PO daily No Start Date 05/19/2015 Inactive Calmoseptine 0.44 %-20.6 % topical ointment RxNorm: 137411 1 Application TOP BID and as needed to sore on buttocks No Start Date 09/06/2016 Inactive Zithromax Z-Henrique 250 mg tablet RxNorm: 082968 1 Tablet(s) PO UD No Start Date 11/09/2015 Inactive zpack x 1 Medication Administered Medication Codes Instructions Start Date Status cyanocobalamin (vit B-12) 1,000 mcg/mL injection solution RxNorm: 123447 Milliliter 06/06/2018 Active cyanocobalamin (vit B-12) 1,000 mcg/mL injection solution RxNorm: 788028 Milliliter 05/24/2018 No longer Active cyanocobalamin (vit B-12) 1,000 mcg/mL injection solution RxNorm: 517108 Milliliter 05/09/2018 No longer Active cyanocobalamin (vit B-12) 1,000 mcg/mL injection solution RxNorm: 778252 Milliliter 04/26/2018 No longer Active cyanocobalamin (vit B-12) 1,000 mcg/mL injection solution RxNorm: 240831 Milliliter 04/12/2018 No longer Active cyanocobalamin (vit B-12) 1,000 mcg/mL injection solution RxNorm: 530946 Milliliter 03/30/2018 No longer Active cyanocobalamin (vit B-12) 1,000 mcg/mL injection solution RxNorm: 224249 Milliliter 03/16/2018 No longer Active cyanocobalamin (vit B-12) 1,000 mcg/mL injection solution RxNorm: 055394 Milliliter 03/02/2018 No longer Active cyanocobalamin (vit B-12) 1,000 mcg/mL injection solution RxNorm: 370624 Milliliter 02/08/2018 No longer Active cyanocobalamin (vit B-12) 1,000 mcg/mL injection solution RxNorm: 996650 Milliliter 01/24/2018 No longer Active cyanocobalamin (vit B-12) 1,000 mcg/mL injection solution RxNorm: 443307 Milliliter 01/10/2018 No longer Active cyanocobalamin (vit B-12) 1,000 mcg/mL injection solution RxNorm: 710231 Milliliter 12/27/2017 No longer Active cyanocobalamin (vit B-12) 1,000 mcg/mL injection solution RxNorm: 575809 1Milliliter 12/12/2017 No longer Active cyanocobalamin (vit B-12) 1,000 mcg/mL injection solution RxNorm: 277063 Milliliter 12/01/2017 No longer Active cyanocobalamin (vit B-12) 1,000 mcg/mL injection solution RxNorm: 984444 1Milliliter 11/17/2017 No longer Active cyanocobalamin (vit B-12) 1,000 mcg/mL injection solution RxNorm: 362992 1Milliliter 11/02/2017 No longer Active cyanocobalamin (vit B-12) 1,000 mcg/mL injection solution RxNorm: 419924 1Milliliter 10/20/2017 No longer Active cyanocobalamin (vit B-12) 1,000 mcg/mL injection solution RxNorm: 051479 Milliliter 10/06/2017 No longer Active cyanocobalamin (vit B-12) 1,000 mcg/mL injection solution RxNorm: 560876 Milliliter 09/21/2017 No longer Active Kenalog 40 mg/mL suspension for injection RxNorm: 9330416 Milliliter 09/15/2017 No longer Active cyanocobalamin (vit B-12) 1,000 mcg/mL injection solution RxNorm: 816703 Milliliter 09/07/2017 No longer Active cyanocobalamin (vit B-12) 1,000 mcg/mL injection solution RxNorm: 922848 Milliliter 08/24/2017 No longer Active cyanocobalamin (vit B-12) 1,000 mcg/mL injection solution RxNorm: 394727 Milliliter 07/06/2017 No longer Active cyanocobalamin (vit B-12) 1,000 mcg/mL injection solution RxNorm: 598337 Milliliter 06/20/2017 No longer Active Kenalog 40 mg/mL suspension for injection RxNorm: 9771680 1Milliliter 06/20/2017 No longer Active cyanocobalamin (vit B-12) 1,000 mcg/mL injection solution RxNorm: 444563 Milliliter 06/05/2017 No longer Active cyanocobalamin (vit B-12) 1,000 mcg/mL injection solution RxNorm: 813233 Milliliter 05/25/2017 No longer Active cyanocobalamin (vit B-12) 1,000 mcg/mL injection solution RxNorm: 353169 Milliliter 05/16/2017 No longer Active cyanocobalamin (vit B-12) 1,000 mcg/mL injection solution RxNorm: 723075 1Milliliter 05/01/2017 No longer Active cyanocobalamin (vit B-12) 1,000 mcg/mL injection solution RxNorm: 297117 Milliliter 04/18/2017 No longer Active cyanocobalamin (vit B-12) 1,000 mcg/mL injection solution RxNorm: 024142 Milliliter 04/06/2017 No longer Active cyanocobalamin (vit B-12) 1,000 mcg/mL injection solution RxNorm: 004904 Milliliter 03/22/2017 No longer Active cyanocobalamin (vit B-12) 1,000 mcg/mL injection solution RxNorm: 186131 Milliliter 03/09/2017 No longer Active cyanocobalamin (vit B-12) 1,000 mcg/mL injection solution RxNorm: 782060 Milliliter 02/23/2017 No longer Active cyanocobalamin (vit B-12) 1,000 mcg/mL injection solution RxNorm: 584906 Milliliter 02/09/2017 No longer Active cyanocobalamin (vit B-12) 1,000 mcg/mL injection solution RxNorm: 015735 Milliliter 01/23/2017 No longer Active cyanocobalamin (vit B-12) 1,000 mcg/mL injection solution RxNorm: 653452 Milliliter 01/10/2017 No longer Active cyanocobalamin (vit B-12) 1,000 mcg/mL injection solution RxNorm: 253622 1Milliliter 12/28/2016 No longer Active cyanocobalamin (vit B-12) 1,000 mcg/mL injection solution RxNorm: 076686 Milliliter 12/14/2016 No longer Active cyanocobalamin (vit B-12) 1,000 mcg/mL injection solution RxNorm: 837133 Milliliter 11/24/2016 No longer Active cyanocobalamin (vit B-12) 1,000 mcg/mL injection solution RxNorm: 661736 1Milliliter 11/07/2016 No longer Active cyanocobalamin (vit B-12) 1,000 mcg/mL injection solution RxNorm: 808015 Milliliter 10/24/2016 No longer Active cyanocobalamin (vit B-12) 1,000 mcg/mL injection solution RxNorm: 432609 1Milliliter 09/29/2016 No longer Active cyanocobalamin (vit B-12) 1,000 mcg/mL injection solution RxNorm: 744888 Milliliter 08/29/2016 No longer Active cyanocobalamin (vit B-12) 1,000 mcg/mL injection solution RxNorm: 466063 Milliliter 08/04/2016 No longer Active cyanocobalamin (vit B-12) 1,000 mcg/mL injection solution RxNorm: 148245 Milliliter 07/21/2016 No longer Active cyanocobalamin (vit B-12) 1,000 mcg/mL injection solution RxNorm: 323287 1Milliliter 07/05/2016 No longer Active cyanocobalamin (vit B-12) 1,000 mcg/mL injection solution RxNorm: 713538 1Milliliter 06/22/2016 No longer Active cyanocobalamin (vit B-12) 1,000 mcg/mL injection solution RxNorm: 828890 Milliliter 06/09/2016 No longer Active cyanocobalamin (vit B-12) 1,000 mcg/mL injection solution RxNorm: 240455 1Milliliter 05/25/2016 No longer Active cyanocobalamin (vit B-12) 1,000 mcg/mL injection solution RxNorm: 067517 Milliliter 05/10/2016 No longer Active cyanocobalamin (vit B-12) 1,000 mcg/mL injection solution RxNorm: 546028 Milliliter 04/26/2016 No longer Active cyanocobalamin (vit B-12) 1,000 mcg/mL injection solution RxNorm: 417141 Milliliter 04/11/2016 No longer Active cyanocobalamin (vit B-12) 1,000 mcg/mL injection solution RxNorm: 559801 Milliliter 03/31/2016 No longer Active cyanocobalamin (vit B-12) 1,000 mcg/mL injection solution RxNorm: 582467 1Milliliter 03/15/2016 No longer Active cyanocobalamin (vit B-12) 1,000 mcg/mL injection solution RxNorm: 652657 Milliliter 02/25/2016 No longer Active cyanocobalamin (vit B-12) 1,000 mcg/mL injection solution RxNorm: 127844 1Milliliter 02/02/2016 No longer Active cyanocobalamin (vit B-12) 1,000 mcg/mL injection solution RxNorm: 975532 Milliliter 01/18/2016 No longer Active cyanocobalamin (vit B-12) 1,000 mcg/mL injection solution RxNorm: 029228 Milliliter 12/29/2015 No longer Active cyanocobalamin (vit B-12) 1,000 mcg/mL injection solution RxNorm: 662287 Milliliter 12/08/2015 No longer Active cyanocobalamin (vit B-12) 1,000 mcg/mL injection solution RxNorm: 375254 Milliliter 11/23/2015 No longer Active cyanocobalamin (vit B-12) 1,000 mcg/mL injection solution RxNorm: 898079 Milliliter 11/11/2015 No longer Active cyanocobalamin (vit B-12) 1,000 mcg/mL injection solution RxNorm: 570162 1Milliliter 10/29/2015 No longer Active cyanocobalamin (vit B-12) 1,000 mcg/mL injection solution RxNorm: 510459 1Milliliter 10/12/2015 No longer Active cyanocobalamin (vit B-12) 1,000 mcg/mL injection solution RxNorm: 054022 1Milliliter 09/29/2015 No longer Active cyanocobalamin (vit B-12) 1,000 mcg/mL injection solution RxNorm: 561800 1Milliliter 09/17/2015 No longer Active cyanocobalamin (vit B-12) 1,000 mcg/mL injection solution RxNorm: 007879 1Milliliter 09/03/2015 No longer Active cyanocobalamin (vit B-12) 1,000 mcg/mL injection solution RxNorm: 146494 Milliliter 08/17/2015 No longer Active cyanocobalamin (vit B-12) 1,000 mcg/mL injection solution RxNorm: 927897 Milliliter 08/06/2015 No longer Active cyanocobalamin (vit B-12) 1,000 mcg/mL injection solution RxNorm: 293693 Milliliter 07/22/2015 No longer Active cyanocobalamin (vit B-12) 1,000 mcg/mL injection solution RxNorm: 182470 Milliliter 07/08/2015 No longer Active cyanocobalamin (vit B-12) 1,000 mcg/mL injection solution RxNorm: 691175 Milliliter 06/23/2015 No longer Active cyanocobalamin (vit B-12) 1,000 mcg/mL injection solution RxNorm: 489719 1Milliliter 06/08/2015 No longer Active cyanocobalamin (vit B-12) 1,000 mcg/mL injection solution RxNorm: 358364 Milliliter 05/27/2015 No longer Active cyanocobalamin (vit B-12) 1,000 mcg/mL injection solution RxNorm: 453712 1Milliliter 05/12/2015 No longer Active cyanocobalamin (vit B-12) 1,000 mcg/mL injection kit RxNorm: 985627 kit 04/30/2015 No longer Active cyanocobalamin (vit B-12) 1,000 mcg/mL injection solution RxNorm: 922102 Milliliter 04/16/2015 No longer Active cyanocobalamin (vit B-12) 1,000 mcg/mL injection solution RxNorm: 054425 Milliliter 04/02/2015 No longer Active cyanocobalamin (vit B-12) 1,000 mcg/mL injection solution RxNorm: 438819 Milliliter 03/18/2015 No longer Active cyanocobalamin (vit B-12) 1,000 mcg/mL injection solution RxNorm: 076807 Milliliter 03/03/2015 No longer Active cyanocobalamin (vit B-12) 1,000 mcg/mL injection solution RxNorm: 494090 Milliliter 02/18/2015 No longer Active cyanocobalamin (vit B-12) 1,000 mcg/mL injection solution RxNorm: 436322 Milliliter 02/04/2015 No longer Active cyanocobalamin (vit B-12) 1,000 mcg/mL injection solution RxNorm: 841258 Milliliter 01/22/2015 No longer Active cyanocobalamin (vit B-12) 1,000 mcg/mL injection solution RxNorm: 497080 Milliliter 01/08/2015 No longer Active cyanocobalamin (vit B-12) 1,000 mcg/mL injection solution RxNorm: 343360 Milliliter 12/25/2014 No longer Active cyanocobalamin (vit B-12) 1,000 mcg/mL injection solution RxNorm: 045058 Milliliter 12/10/2014 No longer Active cyanocobalamin (vit B-12) 1,000 mcg/mL injection solution RxNorm: 975932 Milliliter 11/26/2014 No longer Active cyanocobalamin (vit B-12) 1,000 mcg/mL injection kit RxNorm: 509035 Milliliter 11/12/2014 No longer Active cyanocobalamin (vit B-12) 1,000 mcg/mL injection solution RxNorm: 483742 Milliliter 10/28/2014 No longer Active Immunizations Vaccine [...] (3rd IS) 3.20 uIU/mL 02/26/2018 Free T4 Bvl058 FREE T4 0.99 ng/dL 02/26/2018 Cbc With [...] 28.5 pg 02/26/2018 Cbc With Differential Ord2 [place]% 10.3 % 02/26/2018 Cbc With Differential Ord2 [...] 1.80 K/ul 02/26/2018 Cbc With Differential Ord2 [place] ABS# 0.7 K/ul 02/26/2018 Cbc With Differential Ord2 Eos ABS# 0.2 K/ul 02/26/2018 Cbc With Differential Ord2 Baso ABS# 0.0 K/ul 02/26/2018 B12 Mav975 B12 889.00 pg/ml 02/26/2018 Digoxin Ord9 DIGOXIN 0.7 NG/ML 11/23/2017 Comp Metabolic Lcj340 NA 142 mEq/L 11/23/2017 Comp Metabolic Gjb749 K 4.9 mEq/L 11/23/2017 Comp Metabolic Arg793 CL 112 mEq/L 11/23/2017 Comp Metabolic Zcm217 CO2 18.0 mEq/L 11/23/2017 Comp Metabolic Ufu297 ANION GAP 17 11/23/2017 Comp Metabolic Rck282 GLUCOSE 123 mg/dL 11/23/2017 Comp Metabolic Ghk832 Creat 1.0 mg/dL 11/23/2017 Comp Metabolic Een270 eGFR 59 ml/min/1.73m2 11/23/2017 Comp Metabolic Vee332 BUN 24 mg/dL 11/23/2017 Comp Metabolic Asv426 B/C Ratio 25.0 Ratio 11/23/2017 Comp Metabolic Trz871 CALCIUM 9.4 mg/dL 11/23/2017 Comp Metabolic Dre750 ALK PHOS 56 U/L 11/23/2017 Comp Metabolic Doc191 AST(SGOT) 17 U/L 11/23/2017 Comp Metabolic Bij431 ALT(SGPT) 16 U/L 11/23/2017 Comp Metabolic Uie385 BILI T 0.7 mg/dL 11/23/2017 Comp Metabolic Ady509 ALBUMIN 3.8 g/dL 11/23/2017 Comp Metabolic Emd925 TPRO 6.2 g/dL 11/23/2017 Comp Metabolic Mrd270 GLOB 2.4 g/dL 11/23/2017 Comp Metabolic Kby941 A/G Ratio 1.6 Ratio 11/23/2017 Comp Metabolic Wpn133 Osmo 289 mOsmo 11/23/2017 Free T4 Ipy977 FREE T4 1.04 ng/dL 11/23/2017 %Hba1C Qrp530 % HbA1c 27861- 6 6.4 % 11/23/2017 %Hba1C Oga546 Gluc Ave 137 mg/dL 11/23/2017 Lipid Ord30 CHOL 179 mg/dL 11/23/2017 Lipid Ord30 HDL 51.0 mg/dl 11/23/2017 Lipid Ord30 TRIG 134 mg/dL 11/23/2017 Lipid Ord30 LDL 101 mg/dL 11/23/2017 Lipid Ord30 C/HDL 3.5 Ratio 11/23/2017 Tsh Ord6 TSH (3rd IS) 1.00 uIU/mL 11/23/2017 Microalbumin Bux988 MicroAlb <0.7 mg/dL 11/23/2017 Comp Metabolic Pdf138 NA 141 mEq/L 01/23/2017 Comp Metabolic Tei655 K 4.5 mEq/L 01/23/2017 Comp Metabolic Gfm047 CL 107 mEq/L 01/23/2017 Comp Metabolic Kex926 CO2 21.0 mEq/L 01/23/2017 Comp Metabolic Dgi619 ANION GAP 18 01/23/2017 Comp Metabolic Dgb968 GLUCOSE 138 mg/dL 01/23/2017 Comp Metabolic Ujs694 Creat 1.0 mg/dL 01/23/2017 Comp Metabolic Psj850 eGFR 56 ml/min/1.73m2 01/23/2017 Comp Metabolic Xej664 BUN 26 mg/dL 01/23/2017 Comp Metabolic Fzu797 B/C Ratio 25.7 Ratio 01/23/2017 Comp Metabolic Qop253 CALCIUM 9.0 mg/dL 01/23/2017 Comp Metabolic Ifz374 ALK PHOS 37 U/L 01/23/2017 Comp Metabolic Lut049 AST(SGOT) 20 U/L 01/23/2017 Comp Metabolic Yui142 ALT(SGPT) 25 U/L 01/23/2017 Comp Metabolic Owa701 BILI T 0.9 mg/dL 01/23/2017 Comp Metabolic Ovz727 ALBUMIN 3.8 g/dL 01/23/2017 Comp Metabolic Uub479 TPRO 6.5 g/dL 01/23/2017 Comp Metabolic Isw076 GLOB 2.7 g/dL 01/23/2017 Comp Metabolic Hol793 A/G Ratio 1.4 Ratio 01/23/2017 Comp Metabolic Dxx751 Osmo 288 mOsmo 01/23/2017 Free T4 Lab663 FREE T4 1.05 ng/dL 01/23/2017 %Hba1C Oqt359 % HbA1c 26164- 6 6.1 % 01/23/2017 %Hba1C Sxj519 Gluc Ave 128 mg/dL 01/23/2017 Tsh Ord6 hTSH II 1.68 uIU/mL 01/23/2017 Culture Urine [id number] URINE CULTURE SEE NOTES 11/10/2016 Culture Urine [id number] Continued Results 11/10/2016 Urine Culture Ucult Complete [...] Ord15 CALCIUM 9.3 mg/dL 09/29/2016 Free T4 Qma284 FREE T4 0.99 ng/dL 09/07/2016 Cbc With [...] 30.0 pg 09/07/2016 Cbc With Differential Ord2 [place]% 9.8 % 09/07/2016 Cbc With Differential Ord2 [...] 1.75 K/ul 09/07/2016 Cbc With Differential Ord2 [place] ABS# 0.6 K/ul 09/07/2016 Cbc With Differential Ord2 Eos ABS# 0.1 K/ul 09/07/2016 Cbc With Differential Ord2 Baso ABS# 0.0 K/ul 09/07/2016 Tsh Ord6 hTSH II 1.41 uIU/mL 09/07/2016 Culture Urine [id number] URINE CULTURE SEE NOTES 06/27/2016 Lipid Ord30 CHOL 196 mg/dL 06/22/2016 Lipid Ord30 HDL 63.0 mg/dl 06/22/2016 Lipid Ord30 TRIG 154 mg/dL 06/22/2016 Lipid Ord30 LDL 102 mg/dL 06/22/2016 Lipid Ord30 C/HDL 3.1 Ratio 06/22/2016 Hepatic Crm344 ALBUMIN 4.2 g/dL 06/22/2016 Hepatic Egc842 TPRO 7.0 g/dL 06/22/2016 Hepatic Kou177 GLOB 2.8 g/dL 06/22/2016 Hepatic Xaz529 A/G Ratio 1.5 Ratio 06/22/2016 Hepatic Bhy109 ALK PHOS 54 U/L 06/22/2016 Hepatic Iuy931 ALT(SGPT) 30 U/L 06/22/2016 Hepatic Cef991 AST(SGOT) 24 U/L 06/22/2016 Hepatic Hlu177 BILI T 1.1 mg/dL 06/22/2016 Hepatic Twu523 BILI D 0.2 mg/dL 06/22/2016 Hepatic Jtu248 BILI I 0.9 mg/dL 06/22/2016 Comp Metabolic Yxg741 NA 139 mEq/L 06/14/2016 Comp Metabolic Xem886 K 4.6 mEq/L 06/14/2016 Comp Metabolic Xzg502 CL 108 mEq/L 06/14/2016 Comp Metabolic Uwx001 CO2 22.0 mEq/L 06/14/2016 Comp Metabolic Rru261 ANION GAP 14 06/14/2016 Comp Metabolic Dlr320 GLUCOSE 114 mg/dL 06/14/2016 Comp Metabolic Ozf478 Creat 1.2 mg/dL 06/14/2016 Comp Metabolic Kmp952 eGFR 48 ml/min/1.73m2 06/14/2016 Comp Metabolic Tux682 BUN 24 mg/dL 06/14/2016 Comp Metabolic Hax578 B/C Ratio 20.9 Ratio 06/14/2016 Comp Metabolic Tze254 CALCIUM 9.9 mg/dL 06/14/2016 Comp Metabolic Ynv454 ALK PHOS 47 U/L 06/14/2016 Comp Metabolic Shf869 AST(SGOT) 28 U/L 06/14/2016 Comp Metabolic Axa703 ALT(SGPT) 32 U/L 06/14/2016 Comp Metabolic Ilj650 BILI T 0.9 mg/dL 06/14/2016 Comp Metabolic Ncy015 ALBUMIN 4.1 g/dL 06/14/2016 Comp Metabolic Mxf635 TPRO 6.9 g/dL 06/14/2016 Comp Metabolic Mbk702 GLOB 2.8 g/dL 06/14/2016 Comp Metabolic Xxk443 A/G Ratio 1.5 Ratio 06/14/2016 Comp Metabolic Nyk269 Osmo 282 mOsmo 06/14/2016 Tsh Ord6 hTSH II 1.26 uIU/mL 06/14/2016 Free T4 Gyp363 FREE T4 1.09 ng/dL 06/14/2016 Tsh Ord6 hTSH II 0.28 uIU/mL 02/02/2016 Digoxin Ord9 DIGOXIN 0.7 NG/ML 02/02/2016 Free T4 Eqh261 FREE T4 1.23 ng/dL 02/02/2016 Hepatic Trm036 ALBUMIN 4.0 g/dL 02/02/2016 Hepatic Fis711 TPRO 7.0 g/dL 02/02/2016 Hepatic Alf598 GLOB 3.0 g/dL 02/02/2016 Hepatic Rsl599 A/G Ratio 1.3 Ratio 02/02/2016 Hepatic Dst744 ALK PHOS 57 U/L 02/02/2016 Hepatic Xyv513 ALT(SGPT) 62 U/L 02/02/2016 Hepatic Njt184 AST(SGOT) 54 U/L 02/02/2016 Hepatic Kkx575 BILI T 0.8 mg/dL 02/02/2016 Hepatic Oxj194 BILI D 0.2 mg/dL 02/02/2016 Hepatic Vul667 BILI I 0.6 mg/dL 02/02/2016 Urine Culture Ucult Preliminary No Growth Day 1 11/25/2015 Urine Culture Ucult Complete No Growth Day 2 11/25/2015 Hepatic Ayc621 ALBUMIN 3.9 g/dL 11/11/2015 Hepatic Pew287 TPRO 7.0 g/dL 11/11/2015 Hepatic Kfu089 GLOB 3.1 g/dL 11/11/2015 Hepatic Oci333 A/G Ratio 1.3 Ratio 11/11/2015 Hepatic Ubo816 ALK PHOS 63 U/L 11/11/2015 Hepatic Hze475 ALT(SGPT) 107 U/L 11/11/2015 Hepatic Oli810 AST(SGOT) 101 U/L 11/11/2015 Hepatic Xsm328 BILI T 0.6 mg/dL 11/11/2015 Hepatic Nch562 BILI D 0.1 mg/dL 11/11/2015 Hepatic Btz737 BILI I 0.5 mg/dL 11/11/2015 Comp Metabolic Qxu389 NA 138 mEq/L 10/29/2015 Comp Metabolic Mhp657 K 5.0 mEq/L 10/29/2015 Comp Metabolic Kfc640 CL 105 mEq/L 10/29/2015 Comp Metabolic Jke182 CO2 23.0 mEq/L 10/29/2015 Comp Metabolic Jlj207 ANION GAP 15 10/29/2015 Comp Metabolic Qtz214 GLUCOSE 105 mg/dL 10/29/2015 Comp Metabolic Rgt897 Creat 1.0 mg/dL 10/29/2015 Comp Metabolic Vim764 eGFR 55 ml/min/1.73m2 10/29/2015 Comp Metabolic Tyc330 BUN 20 mg/dL 10/29/2015 Comp Metabolic Xzp933 B/C Ratio 19.4 Ratio 10/29/2015 Comp Metabolic Ibl926 CALCIUM 8.8 mg/dL 10/29/2015 Comp Metabolic Lsj200 ALK PHOS 56 U/L 10/29/2015 Comp Metabolic Qwq664 AST(SGOT) 66 U/L 10/29/2015 Comp Metabolic Xwj165 ALT(SGPT) 78 U/L 10/29/2015 Comp Metabolic Smj085 BILI T 0.7 mg/dL 10/29/2015 Comp Metabolic Zio981 ALBUMIN 3.6 g/dL 10/29/2015 Comp Metabolic Vly789 TPRO 6.6 g/dL 10/29/2015 Comp Metabolic Hcc765 GLOB 3.0 g/dL 10/29/2015 Comp Metabolic Keo451 A/G Ratio 1.2 Ratio 10/29/2015 Comp Metabolic Eak486 Osmo 279 mOsmo 10/29/2015 Comp Metabolic Mjh568 NA 136 mEq/L 09/03/2015 Comp Metabolic Wtk610 K 4.4 mEq/L 09/03/2015 Comp Metabolic Vvh151 CL 103 mEq/L 09/03/2015 Comp Metabolic Lvj719 CO2 24.0 mEq/L 09/03/2015 Comp Metabolic Btv695 ANION GAP 13 09/03/2015 Comp Metabolic Ncu870 GLUCOSE 87 mg/dL 09/03/2015 Comp Metabolic Zpi320 Creat 1.1 mg/dL 09/03/2015 Comp Metabolic Ely624 eGFR 53 ml/min/1.73m2 09/03/2015 Comp Metabolic Nbh684 BUN 17 mg/dL 09/03/2015 Comp Metabolic Zxz543 B/C Ratio 16.2 Ratio 09/03/2015 Comp Metabolic Qdx055 CALCIUM 9.0 mg/dL 09/03/2015 Comp Metabolic Ejj182 ALK PHOS 55 U/L 09/03/2015 Comp Metabolic Wwv090 AST(SGOT) 83 U/L 09/03/2015 Comp Metabolic Swp636 ALT(SGPT) 126 U/L 09/03/2015 Comp Metabolic Jhs246 BILI T 0.9 mg/dL 09/03/2015 Comp Metabolic Hxc279 ALBUMIN 3.9 g/dL 09/03/2015 Comp Metabolic Zfn511 TPRO 6.8 g/dL 09/03/2015 Comp Metabolic Tvl602 GLOB 2.9 g/dL 09/03/2015 Comp Metabolic Cbn397 A/G Ratio 1.4 Ratio 09/03/2015 Comp Metabolic Dxu554 Osmo 273 mOsmo 09/03/2015 Total T3 Ord42 TT3 0.6 ng/ml 07/09/2015 Tsh Ord6 hTSH II 1.62 uIU/mL 07/09/2015 Total T3 Ord42 TT3 0.5 ng/ml 04/02/2015 Free T4 Gfz503 FREE T4 1.23 ng/dL 04/02/2015 Tsh Ord6 [...] Procedure Codes Date THER/PROPH/DIAG INJ SC/IM CPT-4: 89251 06/06/2018 VITAMIN B12 INJECTION CPT- 4: J3420 06/06/2018 THER/PROPH/DIAG INJ SC/IM CPT-4: 72618 05/24/2018 THER/PROPH/DIAG INJ SC/IM CPT-4: 12450 05/09/2018 THER/PROPH/DIAG INJ SC/IM CPT-4: 99608 04/26/2018 VITAMIN B12 INJECTION CPT- 4: J3420 04/26/2018 THER/PROPH/DIAG INJ SC/IM CPT-4: 63735 04/12/2018 THER/PROPH/DIAG INJ SC/IM CPT-4: 73789 03/30/2018 THER/PROPH/DIAG INJ SC/IM CPT-4: 55050 03/16/2018 VITAMIN B12 INJECTION CPT- 4: J3420 03/16/2018 ADMIN INFLUENZA VIRUS VAC CPT-4: G0008 03/16/2018 FLU VACC PRSV FREE INC ANTIG Formatting Model/CDA Sections, Assigned to/Nga Ojeda CPT-4: 48355Vomsafr 03/16/2018 THER/PROPH/DIAG INJ SC/IM CPT-4: 00926 03/02/2018 THER/PROPH/DIAG INJ SC/IM CPT-4: 09237 02/08/2018 THER/PROPH/DIAG INJ SC/IM CPT-4: 51120 01/24/2018 THER/PROPH/DIAG INJ SC/IM CPT-4: 42424 01/10/2018 THER/PROPH/DIAG INJ SC/IM CPT-4: 76226 12/27/2017 VITAMIN B12 INJECTION CPT- 4: J3420 12/27/2017 THER/PROPH/DIAG INJ SC/IM CPT-4: 57283 12/12/2017 THER/PROPH/DIAG INJ SC/IM CPT-4: 17294 12/01/2017 VITAMIN B12 INJECTION CPT- 4: J3420 12/01/2017 THER/PROPH/DIAG INJ SC/IM CPT-4: 38838 11/17/2017 THER/PROPH/DIAG INJ SC/IM CPT-4: 08455 11/02/2017 THER/PROPH/DIAG INJ SC/IM CPT-4: 75576 10/20/2017 THER/PROPH/DIAG INJ SC/IM CPT-4: 25276 10/06/2017 THER/PROPH/DIAG INJ SC/IM CPT-4: 53478 09/21/2017 TRIAMCINOLONE ACET INJ NOS CPT-4: J3301 09/15/2017 THER/PROPH/DIAG INJ SC/IM CPT-4: 05028 09/07/2017 THER/PROPH/DIAG INJ SC/IM CPT-4: 41232 08/24/2017 THER/PROPH/DIAG INJ SC/IM CPT-4: 35697 07/06/2017 THER/PROPH/DIAG INJ SC/IM CPT-4: 11954 06/20/2017 TRIAMCINOLONE ACET INJ NOS CPT-4: J3301 06/20/2017 PPPS, SUBSEQ VISIT CPT- 4: G0439 06/05/2017 THER/PROPH/DIAG INJ SC/IM CPT-4: 07050 06/05/2017 THER/PROPH/DIAG INJ SC/IM CPT-4: 28223 05/25/2017 VITAMIN B12 INJECTION CPT- 4: J3420 05/25/2017 THER/PROPH/DIAG INJ SC/IM CPT-4: 46732 05/16/2017 THER/PROPH/DIAG INJ SC/IM CPT-4: 57093 05/01/2017 THER/PROPH/DIAG INJ SC/IM CPT-4: 03885 04/18/2017 THER/PROPH/DIAG INJ SC/IM CPT-4: 46343 04/06/2017 ADMIN INFLUENZA VIRUS VAC CPT-4: G0008 03/22/2017 FLU VACC PRSV FREE INC ANTIG CPT-4: 96621 03/22/2017 THER/PROPH/DIAG INJ SC/IM CPT-4: 49362 03/09/2017 THER/PROPH/DIAG INJ SC/IM CPT-4: 96242 02/23/2017 THER/PROPH/DIAG INJ SC/IM CPT-4: 06845 02/09/2017 THER/PROPH/DIAG INJ SC/IM CPT-4: 57468 01/23/2017 THER/PROPH/DIAG INJ SC/IM CPT-4: 24709 01/10/2017 THER/PROPH/DIAG INJ SC/IM CPT-4: 40225 12/28/2016 THER/PROPH/DIAG INJ SC/IM CPT-4: 49977 12/14/2016 THER/PROPH/DIAG INJ SC/IM CPT-4: 25353 11/24/2016 URINALYSIS NONAUTO W/O SCOPE CPT-4: 04491 11/07/2016 THER/PROPH/DIAG INJ SC/IM CPT-4: 56304 11/07/2016 THER/PROPH/DIAG INJ SC/IM CPT-4: 91569 10/24/2016 THER/PROPH/DIAG INJ SC/IM CPT-4: 96648 09/29/2016 THER/PROPH/DIAG INJ SC/IM CPT-4: 81313 08/29/2016 THER/PROPH/DIAG INJ SC/IM CPT-4: 89119 08/04/2016 THER/PROPH/DIAG INJ SC/IM CPT-4: 85327 07/21/2016 THER/PROPH/DIAG INJ SC/IM CPT-4: 22850 07/05/2016 THER/PROPH/DIAG INJ SC/IM CPT-4: 58752 06/22/2016 URINALYSIS NONAUTO W/O SCOPE CPT-4: 40663 06/22/2016 THER/PROPH/DIAG INJ SC/IM CPT-4: 02018 06/09/2016 PPPS, SUBSEQ VISIT CPT- 4: G0439 05/30/2016 ADMIN PNEUMOCOCCAL VACCINE SNOMED CT: 16251694 CPT-4: G0009 05/25/2016 Pneumococcal Polysaccharide Vaccine, 23-Valent, Ad CPT-4: 61740 05/25/2016 THER/PROPH/DIAG INJ SC/IM CPT-4: 90377 05/25/2016 THER/PROPH/DIAG INJ SC/IM CPT-4: 53014 05/10/2016 TRIAMCINOLONE ACET INJ NOS CPT-4: J3301 04/26/2016 VITAMIN B12 INJECTION CPT- 4: J3420 04/26/2016 THER/PROPH/DIAG INJ SC/IM CPT-4: 70668 04/11/2016 THER/PROPH/DIAG INJ SC/IM CPT-4: 92383 03/31/2016 ADMIN INFLUENZA VIRUS VAC CPT-4: G0008 03/15/2016 FLU VACC 4 STEPHANIE [address] YRS PLUS IM SNOMED CT: 95910154 CPT-4: 20360 03/15/2016 THER/PROPH/DIAG INJ SC/IM CPT-4: 32944 02/25/2016 THER/PROPH/DIAG INJ SC/IM CPT-4: 57281 02/02/2016 THER/PROPH/DIAG INJ SC/IM CPT-4: 98435 01/18/2016 VITAMIN B12 INJECTION CPT- 4: J3420 12/29/2015 THER/PROPH/DIAG INJ SC/IM CPT-4: 97713 12/29/2015 THER/PROPH/DIAG INJ SC/IM CPT-4: 08696 12/08/2015 THER/PROPH/DIAG INJ SC/IM CPT-4: 20483 11/23/2015 URINALYSIS NONAUTO W/O SCOPE CPT-4: 46662 11/23/2015 THER/PROPH/DIAG INJ SC/IM CPT-4: 22192 11/11/2015 THER/PROPH/DIAG INJ SC/IM CPT-4: 37842 10/29/2015 THER/PROPH/DIAG INJ SC/IM CPT-4: 01105 10/12/2015 VITAMIN B12 INJECTION CPT- 4: J3420 10/12/2015 THER/PROPH/DIAG INJ SC/IM CPT-4: 90607 09/29/2015 THER/PROPH/DIAG INJ SC/IM CPT-4: 72109 09/17/2015 THER/PROPH/DIAG INJ SC/IM CPT-4: 32559 09/03/2015 THER/PROPH/DIAG INJ SC/IM CPT-4: 80836 08/17/2015 THER/PROPH/DIAG INJ SC/IM CPT-4: 86504 08/06/2015 THER/PROPH/DIAG INJ SC/IM CPT-4: 61546 07/22/2015 THER/PROPH/DIAG INJ SC/IM CPT-4: 02403 07/08/2015 THER/PROPH/DIAG INJ SC/IM CPT-4: 34292 06/23/2015 THER/PROPH/DIAG INJ SC/IM CPT-4: 41809 06/08/2015 THER/PROPH/DIAG INJ SC/IM CPT-4: 17441 05/27/2015 DESTRUCT PREMALG LESION CPT-4: 19671 05/19/2015 DESTRUCT PREMALG LES 2-14 CPT-4: 88379 05/19/2015 THER/PROPH/DIAG INJ SC/IM CPT-4: 60536 05/12/2015 VITAMIN B12 INJECTION CPT- 4: J3420 05/12/2015 THER/PROPH/DIAG INJ SC/IM CPT-4: 23073 04/30/2015 VITAMIN B12 INJECTION CPT- 4: J3420 04/30/2015 THER/PROPH/DIAG INJ SC/IM CPT-4: 57086 04/16/2015 THER/PROPH/DIAG INJ SC/IM CPT-4: 99584 04/02/2015 VITAMIN B12 INJECTION CPT- 4: J3420 04/02/2015 THER/PROPH/DIAG INJ SC/IM CPT-4: 49744 03/18/2015 THER/PROPH/DIAG INJ SC/IM CPT-4: 95286 03/03/2015 THER/PROPH/DIAG INJ SC/IM CPT-4: 73489 02/18/2015 THER/PROPH/DIAG INJ SC/IM CPT-4: 55900 02/04/2015 VITAMIN B12 INJECTION CPT- 4: J3420 02/04/2015 THER/PROPH/DIAG INJ SC/IM CPT-4: 73678 01/22/2015 THER/PROPH/DIAG INJ SC/IM CPT-4: 08487 01/08/2015 VITAMIN B12 INJECTION CPT- 4: J3420 01/08/2015 THER/PROPH/DIAG INJ SC/IM CPT-4: 35779 12/25/2014 VITAMIN B12 INJECTION CPT- 4: J3420 12/25/2014 THER/PROPH/DIAG INJ SC/IM CPT-4: 47753 12/10/2014 VITAMIN B12 INJECTION CPT- 4: J3420 12/10/2014 THER/PROPH/DIAG INJ SC/IM CPT-4: 88745 11/26/2014 VITAMIN B12 INJECTION CPT- 4: J3420 11/26/2014 THER/PROPH/DIAG INJ SC/IM CPT-4: 83670 11/12/2014 VITAMIN B12 INJECTION CPT- 4: J3420 11/12/2014 THER/PROPH/DIAG INJ SC/IM CPT-4: 69807 10/28/2014 Vital Signs Date Vital 05/03/2018 Blood Pressure 1: 140/70 Code: 8480-6 BMI: 26.0 Code: 72320-2 Heart Rate 1: 70 bpm Height: 5'6" SpO2: 94% Weight: 161 lbs 04/26/2018 Height: 5'6" 02/26/2018 Blood Pressure 1: 130/72 Code: 8480-6 BMI: 27.9 Code: 28669-3 Heart Rate 1: 72 bpm Height: 5'6" SpO2: 93% Weight: 173 lbs 12/12/2017 Blood Pressure 1: 126/74 Code: 8480-6 BMI: 27.4 Code: 62055-8 Heart Rate 1: 83 bpm Height: 5'6" SpO2: 98% Weight: 170 lbs 12/04/2017 Blood Pressure 1: 104/68 Code: 8480-6 BMI: 28.2 Code: 01458-6 Heart Rate 1: 85 bpm Height: 5'6" SpO2: 95% Weight: 175 lbs 11/20/2017 Blood Pressure 1: 130/68 Code: 8480-6 BMI: 28.4 Code: 09053-6 Heart Rate 1: 80 bpm Height: 5'6" SpO2: 99% Weight: 176 lbs 11/02/2017 Height: 5'6" 09/15/2017 Blood Pressure 1: 134/74 Code: 8480-6 BMI: 28.4 Code: 04525-8 Heart Rate 1: 88 bpm Height: 5'6" SpO2: 98% Weight: 176 lbs 09/07/2017 Blood Pressure 1: 124/64 Code: 8480-6 Heart Rate 1: 90 bpm Height: SpO2: 97% Weight: 08/30/2017 Blood Pressure 1: 140/76 Code: 8480-6 BMI: 28.4 Code: 16169-2 Heart Rate 1: 90 bpm Height: 5'6" SpO2: 94% Weight: 176 lbs 07/06/2017 Blood Pressure 1: 132/66 Code: 8480-6 BMI: 29.4 Code: 37763-0 Heart Rate 1: 85 bpm Height: 5'6" SpO2: 97% Weight: 182 lbs 06/20/2017 Blood Pressure 1: 134/86 Code: 8480-6 Heart Rate 1: 90 bpm Height: SpO2: 98% Weight: 06/05/2017 BMI: 29.1 Code: 88983-9 Height: 5'6" Weight: 180 lbs 05/25/2017 Blood Pressure 1: 126/76 Code: 8480-6 BMI: 29.1 Code: 23925-2 Heart Rate 1: 77 bpm Height: 5'6" SpO2: 97% Weight: 180 lbs 03/23/2017 Blood Pressure 1: 142/84 Code: 8480-6 BMI: 29.1 Code: 23472-4 Heart Rate 1: 91 bpm Height: 5'6" SpO2: 97% Weight: 180 lbs 01/23/2017 Blood Pressure 1: 150/90 Code: 8480-6 BMI: 29.9 Code: 02925-4 Heart Rate 1: 81 bpm Height: 5'6" SpO2: 97% Weight: 185 lbs 11/02/2016 Blood Pressure 1: 148/78 Code: 8480-6 BMI: 29.7 Code: 11995-4 Heart Rate 1: 87 bpm Height: 5'6" SpO2: 97% Weight: 184 lbs 09/29/2016 Blood Pressure 1: 128/78 Code: 8480-6 BMI: 29.7 Code: 43203-8 Heart Rate 1: 78 bpm Height: 5'6" SpO2: 98% Weight: 184 lbs 07/26/2016 Blood Pressure 1: 138/72 Code: 8480-6 BMI: 30.0 Code: 04000-6 Heart Rate 1: 85 bpm Height: 5'6" SpO2: 97% Weight: 186 lbs 05/30/2016 Blood Pressure 1: 132/76 Code: 8480-6 BMI: 30.0 Code: 47008-6 Heart Rate 1: 80 bpm Height: 5'6" SpO2: 98% Waist Measure (cm): 99 cm Weight: 186 lbs 05/25/2016 Blood Pressure 1: 132/76 Code: 8480-6 BMI: 30.0 Code: 16067-9 Heart Rate 1: 80 bpm Height: 5'6" SpO2: 96% Weight: 186 lbs 02/25/2016 Blood Pressure 1: 110/64 Code: 8480-6 Heart Rate 1: 82 bpm Height: SpO2: 96% Weight: 01/25/2016 Blood Pressure 1: 118/70 Code: 8480-6 BMI: 30.0 Code: 32147-1 Heart Rate 1: 78 bpm Height: 5'6" SpO2: 97% Weight: 186 lbs 11/11/2015 Blood Pressure 1: 128/82 Code: 8480-6 BMI: 29.2 Code: 52508-2 Heart Rate 1: 86 bpm Height: 5'6" SpO2: 96% Temperature: 36.4 (C) / 97.6 (F) Weight: 181 lbs 10/12/2015 Blood Pressure 1: 118/70 Code: 8480-6 BMI: 29.2 Code: 01170-4 Heart Rate 1: 81 bpm Height: 5'6" SpO2: 95% Weight: 181 lbs 09/03/2015 Blood Pressure 1: 138/78 Code: 8480-6 BMI: 29.9 Code: 03471-7 Heart Rate 1: 88 bpm Height: 5'6" SpO2: 97% Weight: 185 lbs 05/19/2015 Blood Pressure 1: 146/78 Code: 8480-6 BMI: 30.0 Code: 14777-7 Heart Rate 1: 66 bpm Height: 5'6" SpO2: 97% Weight: 186 lbs 05/12/2015 Blood Pressure 1: 120/70 Code: 8480-6 BMI: 29.9 Code: 68901-5 Heart Rate 1: 89 bpm Height: 5'6" SpO2: 95% Weight: 185 lbs 01/13/2015 Blood Pressure 1: 140/90 Code: 8480-6 BMI: 30.3 Code: 66238-1 Heart Rate 1: 84 bpm Height: 5'6" SpO2: 95% Weight: 188 lbs 12/16/2014 Blood Pressure 1: 140/82 Code: 8480-6 BMI: 29.5 Code: 59466-7 Heart Rate 1: 86 bpm Height: 5'6" [...] data Encounters Encounter Performer Location Codes Date ([id number]) [id number] EST. PATIENT, LEVEL IV Diagnosis: Essential (primary) hypertension[ICD10: I10] Diagnosis: Type 2 diabetes mellitus without complications[ICD10: E11.9] Yarely Vega MD, [facility] CPT-4: 05152 05/03/2018 ([id number]) 92095 EST. PATIENT, LEVEL III Diagnosis: Pain in left shoulder[ICD10: M25.512] Diagnosis: Pain in right shoulder[ICD10: M25.511] Yarely Vega MD, [facility] CPT-4: 94946 02/26/2018 ([id number]) 52213 EST. PATIENT, LEVEL III Diagnosis: Nausea[ICD10: R11.0] Diagnosis: Cough[ICD10: R05] Diagnosis: 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 factor deficiency[ICD10: D51.0] Janet Vega MD, [facility] CPT-4: 63569 12/12/2017 [id number]) 36519 EST. PATIENT, LEVEL IV Diagnosis: Acute bronchitis due to Hemophilus influenzae[ICD10: J20.1] Diagnosis: Cough[ICD10: R05] Yarely Vega MD, [facility] CPT-4: 29223 12/04/2017 [id number]) 13584 EST. PATIENT, LEVEL IV Diagnosis: Essential (primary) hypertension[ICD10: I10] Diagnosis: Cough[ICD10: R05] Diagnosis: Chronic atrial fibrillation[ICD10: I48.2] Yarely Vega MD, [facility] CPT-4: 85495 11/20/2017 ([id number]) 76766 EST. PATIENT, LEVEL III Diagnosis: Cough[ICD10: R05] Diagnosis: Acute upper respiratory infection, unspecified[ICD10: J06.9] Janet Vega MD, [facility] CPT-4: 62288 09/15/2017 [id number] EST. PATIENT, LEVEL III Diagnosis: Laceration without foreign body of right forearm, initial encounter[ICD10: S51.811A] Diagnosis: Other vitamin B12 deficiency anemias[ICD10: D51.8] Brianna Vega MD, [facility] CPT-4: 61311 09/07/2017 ([id number]) 76817 EST. PATIENT, LEVEL IV Diagnosis: Chronic atrial fibrillation[ICD10: I48.2] Diagnosis: Other allergic rhinitis[ICD10: J30.89] Diagnosis: Encounter for therapeutic drug level monitoring[ICD10: Z51.81] Yarely Vega MD, [facility] CPT-4: 69359 08/30/2017 ([id number]) 97061 EST. PATIENT, LEVEL IV Diagnosis: Atrophy of thyroid (acquired)[ICD10: E03.4] Diagnosis: Cough[ICD10: R05] Diagnosis: Laceration without foreign body of left forearm, initial encounter[ICD10: S51.812A] Diagnosis: Candidiasis of skin and nail[ICD10: B37.2] Diagnosis: Other vitamin B12 deficiency anemias[ICD10: D51.8] Diagnosis: Slow transit constipation[ICD10: K59.01] Yarely Vega MD, [facility] CPT-4: 59381 07/06/2017 70150 EST. PATIENT, LEVEL III Diagnosis: Other vitamin B12 deficiency anemias[ICD10: D51.8] Diagnosis: Acute laryngopharyngitis[ICD10: J06.0] Diagnosis: Other allergic rhinitis[ICD10: J30.89] Brianna Vega MD, [facility] CPT- 4: 49112 06/20/2017 ([id number]) 11980 EST. PATIENT, LEVEL IV Diagnosis: Essential (primary) hypertension[ICD10: I10] Diagnosis: Chronic atrial fibrillation[ICD10: I48.2] Diagnosis: Atrophy of thyroid (acquired)[ICD10: E03.4] Diagnosis: 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 factor deficiency[ICD10: D51.0] Yarely Vega MD, [facility] CPT-4: 25704 05/25/2017 ([id number]) 65069 EST. 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 PATIENT, LEVEL IV Diagnosis: Type 2 diabetes mellitus without complications[ICD10: E11.9] Diagnosis: Essential (primary) hypertension[ICD10: I10] Diagnosis: Headache[ICD10: R51] Diagnosis: Atrophy of thyroid (acquired)[ICD10: E03.4] Diagnosis: Vitamin B12 deficiency anemia, unspecified[ICD10: D51.9] Yarely Vega MD, [facility] CPT-4: 11535 01/23/2017 [id number] EST. PATIENT, LEVEL III Diagnosis: Low back pain[ICD10: M54.5] Diagnosis: Pain in thoracic spine[ICD10: M54.6] Brianna Vega MD, [facility] CPT- 4: 47027 11/02/2016 ([id number]) 68054 EST. PATIENT, LEVEL IV Diagnosis: Essential (primary) hypertension[ICD10: I10] Diagnosis: Other vitamin B12 deficiency anemias[ICD10: D51.8] Diagnosis: Generalized abdominal pain[ICD10: R10.84] [facility] CPT-4: 37619 09/29/2016 ([id number]) 41952 EST. PATIENT, LEVEL IV Diagnosis: Essential (primary) hypertension[ICD10: I10] Yarely Vega MD, [facility] CPT-4: 58383 07/26/2016 ([id number]) 41162 EST. PATIENT, LEVEL IV Diagnosis: Benign lipomatous neoplasm of skin and subcutaneous tissue of right leg[ICD10: D17.23] Diagnosis: Pain in right ankle and joints of right foot[ICD10: M25.571] Diagnosis: Encounter for immunization[ICD10: Z23] Diagnosis: Vitamin B12 deficiency anemia, unspecified[ICD10: D51.9] Yarely Vega MD, [facility] CPT-4: 83276 05/25/2016 [id number] EST. PATIENT, LEVEL III Diagnosis: Other chest pain[ICD10: R07.89] Diagnosis: Other vitamin B12 deficiency anemias[ICD10: D51.8] Brianna Vega MD, [facility] CPT-4: 46729 02/25/2016 ([id number]) 27015 EST. 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 PATIENT, LEVEL III Diagnosis: Other vitamin B12 deficiency anemias[ICD10: D51.8] Diagnosis: Acute nasopharyngitis [common cold][ICD10: J00] Diagnosis: Other allergic rhinitis[ICD10: J30.89] Brianna Vega MD, [facility] CPT- 4: 10793 11/11/2015 ([id number]) 21641 EST. PATIENT, LEVEL IV Diagnosis: Essential tremor[ICD10: G25.0] Diagnosis: Chronic fatigue, unspecified[ICD10: R53.82] Diagnosis: Other hypersomnia[ICD10: G47.19] Diagnosis: Essential (primary) hypertension[ICD10: I10] Yarely Vega MD, [facility] CPT-4: 31299 10/12/2015 ([id number]) 83074 EST. PATIENT, LEVEL IV Diagnosis: Essential (primary) hypertension[ICD10: I10] Diagnosis: Chronic atrial fibrillation[ICD10: I48.2] Diagnosis: Abnormal levels of other serum enzymes[ICD10: R74.8] Diagnosis: Type 2 diabetes mellitus without complications[ICD10: E11.9] Diagnosis: Vitamin B12 deficiency anemia, unspecified[ICD10: D51.9] Yarely Vega MD, [facility] CPT-4: 24631 09/03/2015 [id number] 34630 EST. PATIENT, LEVEL III Diagnosis: Nausea[ICD10: R11.0] Diagnosis: Essential tremor[ICD10: G25.0] Diagnosis: Actinic keratosis[ICD10: L57.0] Yarely Vega MD, [facility] CPT-4: 95593 05/19/2015 [id number]) 22914 EST. PATIENT, LEVEL IV Diagnosis: Vitamin B12 deficiency anemia, unspecified[ICD10: D51.9] Diagnosis: Chronic atrial fibrillation[ICD10: I48.2] Diagnosis: Headache[ICD10: R51] Diagnosis: Chronic fatigue, unspecified[ICD10: R53.82] Diagnosis: Cervicalgia[ICD10: M54.2] Yarely Vega MD, [facility] CPT-4: 14816 05/12/2015 [id number]) 26460 EST. PATIENT, LEVEL IV Diagnosis: ESSENTIAL HYPERTENSION[ICD9: 401.9] Diagnosis: Afib[ICD9: 427.31] Diagnosis: Anxiety[ICD9: 300.00] Diagnosis: Insomnia[ICD9: 780.52] Yarely Vega MD, [facility] CPT-4: 72859 01/13/2015 ([id number]) OFFICE VISIT, NEW - LEVEL 4 Diagnosis: Hypothyroidism[ICD9: 244.9] Diagnosis: DIABETES TYPE II[ICD9: 250.00] Diagnosis: ESSENTIAL HYPERTENSION[ICD9: 401.9] Diagnosis: Afib[ICD9: 427.31] Diagnosis: Anxiety[ICD9: 300.00] Diagnosis: B12 deficiency[ICD9: 266.2] [facility] CPT-4: 29465 12/16/2014 Plan of Care Planned Activity Notes Codes Status Date Patient Education: Patient Medication Summary Completed 06/06/2018 Appointment[phone] (15 min) Moderate 05/31/2018 Appointment: Injection 05/24/2018 [...] flonase 05/03/2018 Appointment: [phone] (15 min) Moderate 05/03/2018 Patient Education: Patient [...] surgical intervention. 02/26/2018 Appointment: [phone] (15 min) Moderate 02/26/2018 Patient Education: Patient Medication Summary Completed 02/26/2018 Care Plan: Referral Order SNOMED-CT : [id number] Pending 02/26/2018 Appointment: Injection 02/08/2018 Patient Education: Patient Medication Summary Completed 02/08/2018 Appointment: Injection 01/24/2018 Patient Education: Patient Medication Summary Completed 01/24/2018 Appointment: Injection 01/10/2018 Patient Education: Patient Medication Summary Completed 01/10/2018 Appointment: Injection 12/27/2017 Patient Education: Patient Medication Summary Completed 12/27/2017 Appointment: Yarely Vega WPtel: [phone] [facility] (15 min) Moderate 12/26/2017 Visit Plan: Pkhple-biojiebyg-kwucjmhn protonix-follow up with Dr Navarro as scheduled Cough-recent bronchitis-symptoms improved-call if symptoms do not completely resolve 12/12/2017 Appointment: Janet Fam WPtel: [phone] [place] (15 [...] cough medication. 12/04/2017 Appointment: Yarely Vega WPtel: [phone] [facility] (15 min) Moderate 12/04/2017 Patient Education: [...] Fatigue/malaise -Pt was advsied to ask the Director Financial Services the following: ask the heart doctor [...] becoming uncontrolled. 11/20/2017 Appointment: Yarely Vega WPtel: [address] [place], [place] [phone] [place] (15 min) Moderate 11/20/2017 Patient Education: [...] any worse. 09/15/2017 Appointment: Janet Fam WPtel: [phone] [place] (15 min) Moderate 09/15/2017 Patient Education: Patient Medication Summary Completed 09/15/2017 Appointment: Yarely Vega WPtel: [address] [place], [place] [phone] [place] (15 min) Moderate 09/11/2017 Visit Plan: [...] Brianna Otoole WPtel: [facility] [place] (10 min) Simple 09/07/2017 Patient Education: Patient Medication Summary Completed 09/07/2017 Visit Plan: Lipoma - left ankle - talk to dr. barnes about possible surgery/laser for treatment of lipoma. Fatigue/malaise -Pt was advsied to ask the Director Financial Services the following: ask the heart doctor if there is an alternative to the amiodarone - you may be having side effects from the medication causing you to have pruritus (itching) and feeling like you have body aches, muscle aches, joint pain, fatigue, weight loss (decreased appetite), and pneumonia like symptoms. Congestion - claritin 10mg daily. 08/30/2017 Appointment: [phone] (15 min) Moderate 08/30/2017 Patient Education: Patient Medication Summary Completed 08/30/2017 Appointment: Injection 08/24/2017 Appointment: [facility]ega [facility]el[phone] (15 min) Moderate 08/24/2017 Patient Education: Patient [...] mucinex 07/06/2017 Appointment: [facility]: [phone] (15 min) Moderate 07/06/2017 Patient Education: [...] spray. 06/20/2017 Appointment: Brianna Otoole WPtel: [phone] [facility] (15 min) Moderate 06/20/2017 Patient Education: Patient [...] Injection 06/05/2017 Appointment: [phone] [facility] - Annual Wellness Visit 06/05/2017 Patient [...] q 3 months or q 6 m [facility] based on previous levels of control. 05/25/2017 Appointment: [facility]are[facility]ega WPtel[phone] (15 min) Moderate 05/25/2017 Patient Education: [...] wall. Fatigue - pt to discuss with Director Financial Services about the possibility of amiodarone causing her fatigue/malaise. 03/23/2017 Appointment: [facility]ega WPtel: [phone] (15 min) Moderate 03/23/2017 Patient Education: Patient [...] daily. 01/23/2017 Appointment: [facility]ega [facility]Ptel: [phone] (15 min) Moderate 01/23/2017 Patient Education: [...] not improve. 11/02/2016 Appointment: Bri[facility] Otoole [facility]el[phone] (15 min) Moderate 11/02/2016 Patient Education: Patient [...] carafate 09/29/2016 Appointment: [phone] [place] (15 min) Moderate 09/29/2016 Patient Education: Patient Medication Summary Completed 09/29/2016 Appointment: [facility]ega [phone] [place] (15 min) Moderate 09/27/2016 Appointment: [facility]are[facility]ega [facility]el: [phone] [place] [place] (15 min) Moderate 09/20/2016 Appointment: [facility]arely Vega [facility]Ptel: [phone] [place] [place] (15 min) Moderate 09/20/2016 Patient Education: Patient Medication Summary Completed 09/06/2016 Appointment: [facility]are[facility] Vega [facility]el[phone] [place] (15 min) Moderate 08/30/2016 Appointment: [...] concerns. 07/26/2016 Appointment: [facility]ega [phone] [place] [place] (15 min) Moderate 07/26/2016 Patient Education: [...] surrogate. 05/30/2016 Appointment: [facility]toole [id number] [facility] - Annual Wellness Visit 05/30/2016 Patient [...] at bedtime 05/25/2016 Appointment: [facility]are[facility]ega [facility]el[phone] (15 min) Moderate 05/25/2016 Patient Education: Patient Medication Summary Completed 05/25/2016 Patient Education: Obesity Completed 05/25/2016 Care Plan: Referral Order SNOMED-CT : [id number] Pending 05/25/2016 Appointment: Injection 05/10/2016 Patient Education: Patient Medication Summary Completed 05/10/2016 Appointment: Injection 04/26/2016 Patient Education: Patient Medication Summary Completed 04/26/2016 Appointment: Injection 04/11/2016 Patient Education: Patient Medication Summary Completed 04/11/2016 Appointment: Injection 03/31/2016 Patient Education: Patient Medication Summary Completed 03/31/2016 Patient Education: Patient Medication Summary Completed 03/22/2016 Care Plan[facility] [id number] Pending 03/22/2016 Appointment: Injection 03/15/2016 Patient Education: [...] Brianna Otoole W[facility]el[facility] (15 min) Moderate 02/25/2016 Patient Education: Patient [...] the patients recent sleep study - recommended [place] home patient eval of pt - nocturnal [...] the patients recent sleep study - recommended [place] boss patient eval of pt - nocturnal oxygen [...] case with Faiza's daughter who had left [facility]. She is interested in looking at assisted living facilities for her mom as Faiza's family is for assisted living placement sooner rather than later. 10/12/2015 Appointment: Yarely Vega WPtel: [facility] (15 min) Moderate 10/12/2015 Patient Education: [...] Completed 08/17/2015 Appointment: Yarely Vega WPtel: [phone] (15 min) Moderate 08/11/2015 Appointment: Injection [...] 2 05/19/2015 Appointment: [facility]arely Vega [facility]Ptel: [phone] (30 min) Complex 05/19/2015 Patient Education: [...] prn alprazolam. 01/13/2015 Appointment: Yarely Vega WPtel: [facility] (15 min) Moderate 01/13/2015 Patient Education: [...] medications. 12/16/2014 Appointment: [phone] [place] ([place] New Patient 12/16/2014 Patient Education: [...] D[employer] paperwork for health care surrogate. . Uquyaf-bgmwrwovl-plhzpvic protonix-follow up with Dr Navarro as scheduled [...] Fatigue/malaise -Pt was advsied to ask the Director Financial Services the following: ask the heart doctor [...] pt is to call for acute concerns. Stop Keflex Start Doxycycline - probiotic while [...] follow expected course, or if any worse. ask the heart doctor if there is [...] Fatigue/malaise -Pt was advsied to ask the Director Financial Services the following: ask the heart doctor if there is an alternative to the amiodarone - you may be having side effects from the medication causing you to have pruritus (itching) and feeling like you have body aches, muscle aches, joint pain, fatigue, weight loss (decreased appetite), and pneumonia like symptoms. Congestion - claritin 10mg daily. talk to Heart doctor about possible [...] wall. Fatigue - pt to discuss with Director Financial Services about the possibility of amiodarone causing [...] the patients recent sleep study - recommended [place] home patient eval of pt - nocturnal [...] the patients recent sleep study - recommended [place] home patient eval of pt - nocturnal [...] continue with current treatment plan and mucinex Reminder - please take the TOPAMAX daily [...] based on previous levels of control. . Bronchitis - acute case of bronchitis identified. Pt has been given antibiotics, breathing treatments as appropriate, and pt has been instructed to call if symptoms are not improved, or if symptoms acutely worsen. Cough - rx for antibiotics as well as cough medication.
--- OUTSIDE RECORDS SUMMARY | 2018-12-05 19:34 | XMS REPORT | CCD ---
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 Name Role Phone PP Unavailable CCM Unavailable Summary Purpose Interface Exchange Insurance Providers Payer name Policy type / Coverage type Covered constitution party ID Effective Begin Date Effective End Date WPS Medicare Part B Medicare Part B [id number] Unknown Principal Life Insurance Medicare Part B [id number] Unknown Family history Brother Diagnosis Age At Onset Heart Attack Unknown Mother Diagnosis Age At Onset Hypertension Unknown kidney disease Unknown Stroke Unknown Father Diagnosis Age At Onset Arthritis Unknown Social History Social History Element Codes Description Effective Dates Employment Unknown Retired worked at [employer] 11/20/2017 Marital status Unknown Single 12/16/[address]: 5560181 Former smoker 12/16/[address]: 829745783 Never drinks alcohol 12/16/2014 Allergies, Adverse Reactions, Alerts Substance Reaction Codes Entered Date Inactivated Date Status CODEINE RxNorm: 2670 05/25/2016 No Inactive Date Active ciprofloxacin RxNorm: 44248 12/16/2014 No Inactive Date Active MORPHINE SULFATE [...] ICD-9: 250.00 ICD-10: E11.9 Active 12/15/2014 Unknown 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 Active 06/05/2017 Unknown Encounter for immunization ICD-9: V03.82 ICD-10: [...] complications ICD-9: 250.00 ICD-10: E11.9 12/15/2014 Active 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 06/05/2017 Active Encounter for immunization ICD-9: V03.82 ICD-10: [...] Start Date Stop Date Status Fill Instructions alprazolam 0.25 mg tablet RxNorm: 227323 1 Tablet(s) PO BID 05/25/2018 08/22/2018 Active hydrocodone 5 mg-acetaminophen 325 mg tablet RxNorm: 487274 1-2 Tablet(s) PO Q6 as needed for pain 05/24/2018 06/22/2018 Active cyanocobalamin (vit B-12) 1,000 mcg/mL injection solution RxNorm: 921996 Milliliter(s) Inj 05/24/2018 05/24/2018 Inactive cyanocobalamin (vit B-12) 1,000 mcg/mL injection solution RxNorm: 243396 Milliliter(s) Inj 05/09/2018 05/09/2018 Inactive Claritin 10 mg tablet RxNorm: 508691 TAKE 1 TABLET BY MOUTH ONCE DAILY 05/08/2018 05/02/2019 Active Generic For:CLARITIN 10MG 05/07/2018 9:13:47 AM cyanocobalamin (vit B-12) 1,000 mcg/mL injection solution RxNorm: 644471 INJECT ONE 1 ML EVERY TWO WEEKS 05/03/2018 04/03/2019 Active 05/03/2018 9:13:42 AM Mobic 15 mg tablet RxNorm: 379741 Tablet(s) 1 Tablet(s) PO daily 04/26/2018 04/20/2019 Active buspirone 15 mg tablet RxNorm: 450539 Tablet(s) TAKE 1 TABLET BY MOUTH TWICE DAILY 04/26/2018 04/20/2019 Active Generic For:BUSPAR 15MG 05/31/2017 9:19:20 AM Norvasc 5 mg tablet RxNorm: 501056 Tablet(s) 1 Tablet(s) PO daily 04/26/2018 04/20/2019 Active cyanocobalamin (vit B-12) 1,000 mcg/mL injection solution RxNorm: 612987 Milliliter(s) Inj 04/26/2018 04/26/2018 Inactive hydrocodone 5 mg-acetaminophen 325 mg tablet RxNorm: 492898 1-2 Tablet(s) PO Q6 as needed for pain 04/25/2018 05/23/2018 Inactive cyanocobalamin (vit B-12) 1,000 mcg/mL injection solution RxNorm: 067587 Milliliter(s) Inj 04/12/2018 04/12/2018 Inactive Topamax 25 mg tablet RxNorm: 623832 1 Tablet(s) PO BID 04/09/2018 05/02/2018 Inactive Generic For:TOPAMAX 25MG 12/06/2016 9:15:13 AM Zoloft 50 mg tablet RxNorm: 799725 TAKE 1 TABLET BY MOUTH ONCE DAILY 04/04/2018 12/29/2018 Active Generic For:ZOLOFT 50MG 04/04/2018 9:13:25 AM cyanocobalamin (vit B-12) 1,000 mcg/mL injection solution RxNorm: 060821 Milliliter(s) Inj 03/30/2018 03/30/2018 Inactive levothyroxine 125 mcg tablet RxNorm: 891288 TAKE 1 TABLET BY MOUTH EVERY DAY 03/26/2018 09/21/2018 Active Generic For:SYNTHROID 125MCG TAB 03/26/2018 9:15:59 AM liothyronine 5 mcg tablet RxNorm: 067159 TAKE 1 TABLET BY MOUTH TWICE DAILY 03/26/2018 09/21/2018 Active Generic For:CYTOMEL 5MCG 03/26/2018 9:15:54 AM hydrocodone 5 mg-acetaminophen 325 mg tablet RxNorm: 401031 1-2 Tablet(s) PO Q6 as needed for pain 03/19/2018 04/17/2018 Inactive cyanocobalamin (vit B-12) 1,000 mcg/mL injection solution RxNorm: 674814 Milliliter(s) Inj 03/16/2018 03/16/2018 Inactive Flonase Allergy Relief 50 mcg/actuation nasal spray,suspension RxNorm: 5372805 1 Oketo NASAL BID 03/05/2018 07/02/2018 Active cyanocobalamin (vit B-12) 1,000 mcg/mL injection solution RxNorm: 892281 Milliliter(s) Inj 03/02/2018 03/02/2018 Inactive alprazolam 0.25 mg tablet RxNorm: 770388 1 Tablet(s) PO BID 02/28/2018 05/27/2018 Active cyanocobalamin (vit B-12) 1,000 mcg/mL injection solution RxNorm: 707571 Milliliter(s) Inj 02/08/2018 02/08/2018 Inactive cyanocobalamin (vit B-12) 1,000 mcg/mL injection solution RxNorm: 771702 Milliliter(s) Inj 01/24/2018 01/24/2018 Inactive albuterol sulfate 2.5 mg/3 mL (0.083 %) solution for nebulization RxNorm: 596848 3 Milliliter(s) INH Q6 PRN 01/24/2018 05/02/2018 Inactive Claritin 10 mg tablet RxNorm: 220336 1 Tablet(s) PO daily 01/15/2018 05/07/2018 Inactive cyanocobalamin (vit B-12) 1,000 mcg/mL injection solution RxNorm: 020615 Milliliter(s) Inj 01/10/2018 01/10/2018 Inactive hydrocodone 5 mg-acetaminophen 325 mg tablet RxNorm: 988553 1-2 Tablet(s) PO Q6 as needed for pain 01/09/2018 02/07/2018 Inactive cyanocobalamin (vit B-12) 1,000 mcg/mL injection solution RxNorm: 154937 Milliliter(s) Inj 12/27/2017 12/27/2017 Inactive cyanocobalamin (vit B-12) 1,000 mcg/mL injection solution RxNorm: 159504 1 Milliliter(s) Inj 12/12/2017 12/12/2017 Inactive Zofran ODT 4 mg disintegrating tablet RxNorm: 022686 1 Tablet(s) PO TID as needed 12/08/2017 12/09/2017 Inactive hydrocodone 2.5 mg-guaifenesin 200 mg/5 mL oral solution RxNorm: 391496 5 Milliliter(s) PO 12/04/2017 05/06/2018 Inactive doxycycline hyclate 100 mg capsule RxNorm: 2688532 1 Capsule(s) PO BID 12/04/2017 12/13/2017 Inactive cyanocobalamin (vit B-12) 1,000 mcg/mL injection solution RxNorm: 494645 Milliliter(s) Inj 12/01/2017 12/01/2017 Inactive Flonase Allergy Relief 50 mcg/actuation nasal spray,suspension RxNorm: 0953778 1 Oketo NASAL BID 11/20/2017 2018 Inactive cyanocobalamin (vit B-12) 1,000 mcg/mL injection solution RxNorm: 366567 1 Milliliter(s) Inj 11/17/2017 11/17/2017 Inactive hydrocodone 5 mg-acetaminophen 325 mg tablet RxNorm: 877292 1-2 Tablet(s) PO Q6 as needed for pain 11/16/2017 12/15/2017 Inactive cyanocobalamin (vit B-12) 1,000 mcg/mL injection solution RxNorm: 082740 1 Milliliter(s) Inj 11/02/2017 11/02/2017 Inactive hydrocodone 5 mg-acetaminophen 325 mg tablet RxNorm: 662269 1-2 Tablet(s) PO Q6 as needed for pain 10/25/2017 11/15/2017 Inactive Claritin 10 mg tablet RxNorm: 295474 1 Tablet(s) PO daily 10/25/2017 11/19/2017 Inactive albuterol sulfate 2.5 mg/3 mL (0.083 %) solution for nebulization RxNorm: 888407 3 Milliliter(s) INH Q6 PRN 10/25/2017 01/23/2018 Inactive Claritin 10 mg tablet RxNorm: 591718 1 Tablet(s) PO daily 10/25/2017 10/24/2017 Inactive cyanocobalamin (vit B-12) 1,000 mcg/mL injection solution RxNorm: 435306 1 Milliliter(s) Inj 10/20/2017 10/20/2017 Inactive Zoloft 50 mg tablet RxNorm: 771081 TAKE 1 TABLET BY MOUTH ONCE DAILY 10/13/2017 04/03/2018 Inactive Generic For:ZOLOFT 50MG 10/13/2017 8:59:44 AM cyanocobalamin (vit B-12) 1,000 mcg/mL injection solution RxNorm: 463901 Milliliter(s) Inj 10/06/2017 10/06/2017 Inactive liothyronine 5 mcg tablet RxNorm: 273944 TAKE 1 TABLET BY MOUTH TWICE DAILY 10/03/2017 03/25/2018 Inactive Generic For:CYTOMEL 5MCG 10/03/2017 9:13:38 AM cyanocobalamin (vit B-12) 1,000 mcg/mL injection solution RxNorm: 589399 Milliliter(s) Inj 09/21/2017 09/21/2017 Inactive albuterol sulfate 2.5 mg/3 mL (0.083 %) solution for nebulization RxNorm: 320270 3 Milliliter(s) INH Q6 PRN 09/21/2017 10/24/2017 Inactive hydrocodone 5 mg-acetaminophen 325 mg tablet RxNorm: 720955 1-2 Tablet(s) PO Q6 as needed for pain 09/21/2017 10/20/2017 Inactive Kenalog 40 mg/mL suspension for injection RxNorm: 8323733 Milliliter(s) Inj 09/15/2017 09/15/2017 Inactive Keflex 500 mg capsule RxNorm: 035979 1 Capsule(s) PO TID 09/07/2017 09/16/2017 Inactive Please deliver to patient cyanocobalamin (vit B-12) 1,000 mcg/mL injection solution RxNorm: 054198 Milliliter(s) Inj 09/07/2017 09/07/2017 Inactive Aricept 10 mg tablet RxNorm: 895709 1 Tablet(s) PO daily 09/06/2017 08/31/2018 Active alprazolam 0.25 mg tablet RxNorm: 283006 1 Tablet(s) PO BID 09/06/2017 02/27/2018 Inactive hydrocodone 5 mg-acetaminophen 325 mg tablet RxNorm: 032853 1-2 Tablet(s) PO Q6 as needed for pain 08/24/2017 09/20/2017 Inactive cyanocobalamin (vit B-12) 1,000 mcg/mL injection solution RxNorm: 952612 Milliliter(s) Inj 08/24/2017 08/24/2017 Inactive Norvasc 5 mg tablet RxNorm: 528892 1 Tablet(s) PO daily 08/18/2017 04/25/2018 Inactive nystatin 100,000 unit/gram topical powder RxNorm: 131373 1 Gram(s) TOP QID 08/17/2017 08/26/2017 Inactive hydrocodone 5 mg-acetaminophen 325 mg tablet RxNorm: 778366 1-2 Tablet(s) PO Q6 as needed for pain 07/25/2017 08/23/2017 Inactive Tamiflu 75 mg capsule RxNorm: 071326 1 Capsule(s) PO BID 07/24/2017 12/11/2017 Inactive nystatin 100,000 unit/gram topical powder RxNorm: 336384 1 Gram(s) TOP QID 07/14/2017 07/22/2017 Inactive levothyroxine 125 mcg tablet RxNorm: 218936 Tablet(s) 1 Tablet(s) PO daily 07/10/2017 01/05/2018 Inactive nystatin 100,000 unit/gram topical powder RxNorm: 362185 1 Gram(s) TOP QID 07/06/2017 07/13/2017 Inactive cyanocobalamin (vit B-12) 1,000 mcg/mL injection solution RxNorm: 707995 Milliliter(s) Inj 07/06/2017 07/06/2017 Inactive Kenalog 40 mg/mL suspension for injection RxNorm: 7791911 1 Milliliter(s) Inj 06/20/2017 06/20/2017 Inactive doxycycline hyclate 100 mg capsule RxNorm: 0576103 1 Capsule(s) PO BID 06/20/2017 06/26/2017 Inactive cyanocobalamin (vit B-12) 1,000 mcg/mL injection solution RxNorm: 300059 Milliliter(s) Inj 06/20/2017 06/20/2017 Inactive Keflex 500 mg capsule RxNorm: 732912 1 Capsule(s) PO TID 06/14/2017 06/23/2017 Inactive Please deliver to patient Mobic 15 mg tablet RxNorm: 269118 1 Tablet(s) PO daily 06/14/2017 04/25/2018 Inactive cyanocobalamin (vit B-12) 1,000 mcg/mL injection solution RxNorm: 261759 Milliliter(s) Inj 06/05/2017 06/05/2017 Inactive buspirone 15 mg tablet RxNorm: 924931 TAKE 1 TABLET BY MOUTH TWICE DAILY 05/31/2017 04/25/2018 Inactive Generic For:BUSPAR 15MG 05/31/2017 9:19:20 AM cyanocobalamin (vit B-12) 1,000 mcg/mL injection solution RxNorm: 652797 Milliliter(s) Inj 05/25/2017 05/25/2017 Inactive hydrocodone 5 mg-acetaminophen 325 mg tablet RxNorm: 291319 1-2 Tablet(s) PO Q6 as needed for pain 05/25/2017 06/23/2017 Inactive amiodarone 200 mg tablet RxNorm: 103733 1/2 Tablet(s) PO daily 05/22/2017 No Stop Date Active cardiology decreased to 100mg daily cyanocobalamin (vit B-12) 1,000 mcg/mL injection solution RxNorm: 783481 Milliliter(s) Inj 05/16/2017 05/16/2017 Inactive Zofran ODT 4 mg disintegrating tablet RxNorm: 711243 1 Tablet(s) PO TID as needed 05/03/2017 05/04/2017 Inactive hydrocodone 5 mg-acetaminophen 325 mg tablet RxNorm: 678315 1-2 Tablet(s) PO Q6 as needed for pain 05/01/2017 05/05/2017 Inactive cyanocobalamin (vit B-12) 1,000 mcg/mL injection solution RxNorm: 361911 1 Milliliter(s) Inj 05/01/2017 05/01/2017 Inactive cyanocobalamin (vit B-12) 1,000 mcg/mL injection solution RxNorm: 051075 INJECT ONE 1 ML EVERY TWO WEEKS 04/26/2017 12/04/2018 Active 04/26/2017 9:08:52 AM Zoloft 50 mg tablet RxNorm: 712000 Tablet(s) TAKE 1 TABLET BY MOUTH DAILY 04/25/2017 10/12/2017 Inactive Generic For:ZOLOFT 50MG cyanocobalamin (vit B-12) 1,000 mcg/mL injection solution RxNorm: 421339 Milliliter(s) Inj 04/18/2017 04/18/2017 Inactive liothyronine 5 mcg tablet RxNorm: 829768 1 Tablet(s) PO BID 04/13/2017 10/02/2017 Inactive cyanocobalamin (vit B-12) 1,000 mcg/mL injection solution RxNorm: 264752 Milliliter(s) Inj 04/06/2017 04/06/2017 Inactive hydrocodone 5 mg-acetaminophen 325 mg tablet RxNorm: 688017 1-2 Tablet(s) PO Q6 as needed for pain 04/06/2017 04/10/2017 Inactive cyanocobalamin (vit B-12) 1,000 mcg/mL injection solution RxNorm: 447458 Milliliter(s) Inj 03/22/2017 03/22/2017 Inactive alprazolam 0.25 mg tablet RxNorm: 308308 1 Tablet(s) PO BID 03/17/2017 12/11/2017 Inactive alprazolam 0.25 mg tablet RxNorm: 482080 1 Tablet(s) PO BID 03/16/2017 09/05/2017 Inactive hydrocodone 5 mg-acetaminophen 325 mg tablet RxNorm: 506331 1-2 Tablet(s) PO Q6 as needed for pain 03/09/2017 03/13/2017 Inactive cyanocobalamin (vit B-12) 1,000 mcg/mL injection solution RxNorm: 942812 Milliliter(s) Inj 03/09/2017 03/09/2017 Inactive cyanocobalamin (vit B-12) 1,000 mcg/mL injection solution RxNorm: 424031 Milliliter(s) Inj 02/23/2017 02/23/2017 Inactive cyanocobalamin (vit B-12) 1,000 mcg/mL injection solution RxNorm: 976133 Milliliter(s) Inj 02/09/2017 02/09/2017 Inactive hydrocodone 5 mg-acetaminophen 325 mg tablet RxNorm: 308752 1-2 Tablet(s) PO Q6 as needed for pain 02/08/2017 02/12/2017 Inactive Topamax 25 mg tablet RxNorm: 900130 1 Tablet(s) PO BID 01/23/2017 05/22/2017 Inactive Generic For:TOPAMAX 25MG 12/06/2016 9:15:13 AM cyanocobalamin (vit B-12) 1,000 mcg/mL injection solution RxNorm: 281890 Milliliter(s) Inj 01/23/2017 01/23/2017 Inactive cyanocobalamin (vit B-12) 1,000 mcg/mL injection solution RxNorm: 437922 Milliliter(s) Inj 01/10/2017 01/10/2017 Inactive hydrocodone 5 mg-acetaminophen 325 mg tablet RxNorm: 853213 1-2 Tablet(s) PO Q6 as needed for pain 01/09/2017 01/13/2017 Inactive cyanocobalamin (vit B-12) 1,000 mcg/mL injection solution RxNorm: 207037 1 Milliliter(s) Inj 12/28/2016 12/28/2016 Inactive cyanocobalamin (vit B-12) 1,000 mcg/mL injection solution RxNorm: 213681 Milliliter(s) Inj 12/14/2016 12/14/2016 Inactive buspirone 15 mg tablet RxNorm: 531142 1 Tablet(s) PO BID 12/12/2016 05/30/2017 Inactive hydrocodone 5 mg-acetaminophen 325 mg tablet RxNorm: 503019 1-2 Tablet(s) PO Q6 as needed for pain 12/08/2016 12/12/2016 Inactive Topamax 25 mg tablet RxNorm: 202641 TAKE 1 TABLET BY MOUTH EVERY DAY AT BEDTIME 12/06/2016 01/22/2017 Inactive Generic For:TOPAMAX 25MG 12/06/2016 9:15:13 AM Lac-Hydrin Five 5 % lotion RxNorm: 223675 1 Gram(s) TOP daily 12/02/2016 05/02/2018 Inactive cyanocobalamin (vit B-12) 1,000 mcg/mL injection solution RxNorm: 639130 Milliliter(s) Inj 11/24/2016 11/24/2016 Inactive Ceftin 500 mg tablet RxNorm: 792832 1 Tablet(s) PO BID 11/11/2016 06/13/2017 Inactive Cipro 500 mg tablet RxNorm: 197748 1 Tablet(s) PO BID 11/11/2016 11/10/2016 Inactive Cipro 500 mg tablet RxNorm: 862441 1 Tablet(s) PO BID 11/11/2016 11/11/2016 Inactive cyanocobalamin (vit B-12) 1,000 mcg/mL injection solution RxNorm: 571229 1 Milliliter(s) Inj 11/07/2016 11/07/2016 Inactive hydrocodone 5 mg-acetaminophen 325 mg tablet RxNorm: 092774 1-2 Tablet(s) PO Q6 as needed for pain 11/02/2016 11/06/2016 Inactive cyanocobalamin (vit B-12) 1,000 mcg/mL injection solution RxNorm: 350255 Milliliter(s) Inj 10/24/2016 10/24/2016 Inactive levothyroxine 125 mcg tablet RxNorm: 168720 Tablet(s) 1 Tablet(s) PO daily 10/24/2016 04/21/2017 Inactive liothyronine 5 mcg tablet RxNorm: 703619 1 Tablet(s) PO BID 10/24/2016 04/12/2017 Inactive hydrocodone 5 mg-acetaminophen 325 mg tablet RxNorm: 669154 1-2 Tablet(s) PO Q6 as needed for pain 10/17/2016 10/21/2016 Inactive Keflex 500 mg capsule RxNorm: 424878 1 Capsule(s) PO TID 10/07/2016 10/06/2016 Inactive Keflex 500 mg capsule RxNorm: 064115 1 Capsule(s) PO TID 10/07/2016 10/16/2016 Inactive Please deliver to patient cyanocobalamin (vit B-12) 1,000 mcg/mL injection solution RxNorm: 466974 1 Milliliter(s) Inj 09/29/2016 09/29/2016 Inactive alprazolam 0.25 mg tablet RxNorm: 817287 1 Tablet(s) PO BID 09/20/2016 03/16/2017 Inactive Cozaar 100 mg tablet RxNorm: 312215 1 Tablet(s) PO daily 09/14/2016 No Stop Date Active metoprolol tartrate 50 mg tablet RxNorm: 672288 1/2 Tablet(s) PO BID 09/14/2016 12/12/2016 Inactive Zoloft 50 mg tablet RxNorm: 666582 Tablet(s) TAKE 1 TABLET BY MOUTH DAILY 09/14/2016 03/12/2017 Inactive Generic For:ZOLOFT 50MG liothyronine 5 mcg tablet RxNorm: 756305 1 Tablet(s) PO BID 09/14/2016 10/23/2016 Inactive Calmoseptine 0.44 %-20.6 % topical ointment RxNorm: 853996 1 Application TOP BID and as needed to sore on buttocks 09/07/2016 No Stop Date Active cyanocobalamin (vit B-12) 1,000 mcg/mL injection solution RxNorm: 413183 Milliliter(s) Inj 08/29/2016 08/29/2016 Inactive hydrocodone 5 mg-acetaminophen 325 mg tablet RxNorm: 695028 1-2 Tablet(s) PO Q6 as needed for pain 08/29/2016 10/16/2016 Inactive levothyroxine 125 mcg tablet RxNorm: 179018 1 Tablet(s) PO daily 08/25/2016 10/23/2016 Inactive Topamax 25 mg tablet RxNorm: 012256 TAKE 1 TABLET BY MOUTH EVERY DAY AT BEDTIME 08/17/2016 12/05/2016 Inactive Generic For:TOPAMAX 25MG 08/17/2016 2:14:37 PM hydrocodone 5 mg-acetaminophen 325 mg tablet RxNorm: 131388 1-2 Tablet(s) PO Q6 as needed for pain 08/11/2016 08/28/2016 Inactive hydrocodone 5 mg-acetaminophen 325 mg tablet RxNorm: 725899 1 -2 Tablet(s) PO Q6 as needed for pain 08/11/2016 08/18/2016 Inactive hydrocodone 5 mg-acetaminophen 325 mg tablet RxNorm: 970915 1 Tablet(s) PO Q6 as needed for pain 08/05/2016 08/10/2016 Inactive cyanocobalamin (vit B-12) 1,000 mcg/mL injection solution RxNorm: 593077 Milliliter(s) Inj 08/04/2016 08/04/2016 Inactive Norvasc 10 mg tablet RxNorm: 697485 1 Tablet(s) PO daily 07/26/2016 07/20/2017 Inactive alprazolam 0.25 mg tablet RxNorm: 234480 1 Tablet(s) PO QHS 07/21/2016 09/19/2016 Inactive Norvasc 5 mg tablet RxNorm: 880504 1 Tablet(s) PO daily 07/21/2016 07/25/2016 Inactive levothyroxine 125 mcg tablet RxNorm: 291358 1 Tablet(s) PO daily 07/21/2016 12/11/2017 Inactive cyanocobalamin (vit B-12) 1,000 mcg/mL injection solution RxNorm: 433686 Milliliter(s) Inj 07/21/2016 07/21/2016 Inactive Zoloft 50 mg tablet RxNorm: 032840 Tablet(s) TAKE 1 TABLET BY MOUTH DAILY 07/21/2016 09/13/2016 Inactive Generic For:ZOLOFT 50MG cyanocobalamin (vit B-12) 1,000 mcg/mL injection solution RxNorm: 897684 1 Milliliter(s) Inj 07/05/2016 07/05/2016 Inactive cyanocobalamin (vit B-12) 1,000 mcg/mL injection solution RxNorm: 322067 1 Milliliter(s) Inj 06/22/2016 06/22/2016 Inactive cyanocobalamin (vit B-12) 1,000 mcg/mL injection solution RxNorm: 854913 Milliliter(s) Inj 06/09/2016 06/09/2016 Inactive Aricept 10 mg tablet RxNorm: 686248 1 Tablet(s) PO daily 05/27/2016 05/21/2017 Inactive Mobic 15 mg tablet RxNorm: 699478 1 Tablet(s) PO daily 05/27/2016 05/21/2017 Inactive levothyroxine 125 mcg tablet RxNorm: 851509 1 Tablet(s) PO daily 05/25/2016 07/20/2016 Inactive cyanocobalamin (vit B-12) 1,000 mcg/mL injection solution RxNorm: 983902 1 Milliliter(s) Inj 05/25/2016 05/25/2016 Inactive doxycycline hyclate 100 mg capsule RxNorm: 2581257 1 Capsule(s) PO BID 05/16/2016 05/15/2016 Inactive doxycycline hyclate 100 mg capsule RxNorm: 3090123 1 Capsule(s) PO BID 05/16/2016 05/22/2016 Inactive cyanocobalamin (vit B-12) 1,000 mcg/mL injection solution RxNorm: 916797 Milliliter(s) Inj 05/10/2016 05/10/2016 Inactive cyanocobalamin (vit B-12) 1,000 mcg/mL injection solution RxNorm: 951249 Milliliter(s) Inj 04/26/2016 04/26/2016 Inactive Topamax 25 mg tablet RxNorm: 923998 1 Tablet(s) PO QPM 04/22/2016 08/16/2016 Inactive cyanocobalamin (vit B-12) 1,000 mcg/mL injection solution RxNorm: 549475 Milliliter(s) 1 Milliliter(s) Inj [id number] 04/11/2016 12/31/2017 Inactive liothyronine 5 mcg tablet RxNorm: 983043 1 Tablet(s) PO BID 04/11/2016 09/13/2016 Inactive cyanocobalamin (vit B-12) 1,000 mcg/mL injection solution RxNorm: 308306 Milliliter(s) Inj 04/11/2016 04/11/2016 Inactive cyanocobalamin (vit B-12) 1,000 mcg/mL injection solution RxNorm: 516888 Milliliter(s) Inj 03/31/2016 03/31/2016 Inactive cyanocobalamin (vit B-12) 1,000 mcg/mL injection solution RxNorm: 960239 1 Milliliter(s) Inj 03/15/2016 03/15/2016 Inactive levothyroxine 125 mcg tablet RxNorm: 458976 1 Tablet(s) PO daily 2016 03/03/2016 Inactive levothyroxine 125 mcg tablet RxNorm: 757652 1 Tablet(s) PO daily 2016 05/24/2016 Inactive cyanocobalamin (vit B-12) 1,000 mcg/mL injection solution RxNorm: 248990 Milliliter(s) Inj 02/25/2016 02/25/2016 Inactive cyanocobalamin (vit B-12) 1,000 mcg/mL injection solution RxNorm: 035084 1 Milliliter(s) Inj 02/02/2016 02/02/2016 Inactive sucralfate 1 gram tablet RxNorm: 273203 1 Tablet(s) PO QHS 01/25/2016 No Stop Date Active amiodarone 200 mg tablet RxNorm: 525775 1/2 Tablet(s) PO BID 01/25/2016 05/21/2017 Inactive cyanocobalamin (vit B-12) 1,000 mcg/mL injection solution RxNorm: 091486 Milliliter(s) Inj 01/18/2016 01/18/2016 Inactive cyanocobalamin (vit B-12) 1,000 mcg/mL injection solution RxNorm: 860531 Milliliter(s) Inj 12/29/2015 12/29/2015 Inactive Topamax 25 mg tablet RxNorm: 047111 1 Tablet(s) PO QPM 12/08/2015 04/05/2016 Inactive cyanocobalamin (vit B-12) 1,000 mcg/mL injection solution RxNorm: 235058 Milliliter(s) Inj 12/08/2015 12/08/2015 Inactive Bactrim DS 800 mg-160 mg tablet RxNorm: 542171 1 Tablet(s) PO BID 11/23/2015 11/22/2015 Inactive cyanocobalamin (vit B-12) 1,000 mcg/mL injection solution RxNorm: 324734 Milliliter(s) Inj 11/23/2015 11/23/2015 Inactive Bactrim DS 800 mg-160 mg tablet RxNorm: 168802 1 Tablet(s) PO BID 11/23/2015 11/29/2015 Inactive cyanocobalamin (vit B-12) 1,000 mcg/mL injection solution RxNorm: 001562 Milliliter(s) Inj 11/11/2015 11/11/2015 Inactive amoxicillin 500 mg capsule RxNorm: 484163 1 Capsule(s) PO TID 11/10/2015 11/19/2015 Inactive Zithromax Z-Henrique 250 mg tablet RxNorm: 452963 1 Tablet(s) PO UD 11/10/2015 01/24/2016 Inactive zpack x 1 amoxicillin 500 mg capsule RxNorm: 698226 1 Capsule(s) PO TID 11/10/2015 11/09/2015 Inactive cyanocobalamin (vit B-12) 1,000 mcg/mL injection solution RxNorm: 481922 1 Milliliter(s) Inj 10/29/2015 10/29/2015 Inactive [place] 3 capsule RxNorm: 1 Capsule(s) PO QAM , 2 Capsules at noon, 1 Capsule QHS 10/13/2015 No Stop Date Active potassium chloride ER 20 mEq tablet,extended release RxNorm: 641717 2 Tablet(s) PO daily at noon 10/13/2015 No Stop Date Active alprazolam 0.25 mg tablet RxNorm: 394945 1 Tablet(s) PO QHS 10/13/2015 07/20/2016 Inactive amiodarone 200 mg tablet RxNorm: 586854 1 Tablet(s) PO BID 10/13/2015 01/24/2016 Inactive cyanocobalamin (vit B-12) 1,000 mcg/mL injection solution RxNorm: 985988 1 Milliliter(s) Inj 10/12/2015 10/12/2015 Inactive Zofran 4 mg tablet RxNorm: 329010 1 Tablet(s) PO daily as needed 10/07/2015 05/24/2016 Inactive Zoloft 50 mg tablet RxNorm: 999656 TAKE 1 TABLET BY MOUTH DAILY 10/05/2015 05/01/2016 Inactive Generic For:ZOLOFT 50MG cyanocobalamin (vit B-12) 1,000 mcg/mL injection solution RxNorm: 443496 1 Milliliter(s) Inj 09/29/2015 09/29/2015 Inactive cyanocobalamin (vit B-12) 1,000 mcg/mL injection solution RxNorm: 725159 1 Milliliter(s) Inj 09/17/2015 09/17/2015 Inactive Norvasc 5 mg tablet RxNorm: 829562 1 Tablet(s) PO daily 09/17/2015 07/20/2016 Inactive liothyronine 5 mcg tablet RxNorm: 662545 1 Tablet(s) PO BID 09/17/2015 03/14/2016 Inactive Zoloft 50 mg tablet RxNorm: 013521 1 Tablet(s) PO daily 09/17/2015 10/04/2015 Inactive buspirone 15 mg tablet RxNorm: 801128 1 Tablet(s) PO BID 09/17/2015 09/10/2016 Inactive buspirone 15 mg tablet RxNorm: 043236 1 Tablet(s) PO BID 09/14/2015 09/16/2015 Inactive Topamax 25 mg tablet RxNorm: 816731 1 Tablet(s) PO QPM 09/03/2015 12/07/2015 Inactive cyanocobalamin (vit B-12) 1,000 mcg/mL injection solution RxNorm: 760102 1 Milliliter(s) Inj 09/03/2015 09/03/2015 Inactive cyanocobalamin (vit B-12) 1,000 mcg/mL injection solution RxNorm: 105471 Milliliter(s) Inj 08/17/2015 08/17/2015 Inactive cyanocobalamin (vit B-12) 1,000 mcg/mL injection solution RxNorm: 903313 Milliliter(s) Inj 08/06/2015 08/06/2015 Inactive levothyroxine 150 mcg tablet RxNorm: 919374 1 Tablet(s) PO daily 07/22/2015 03/03/2016 Inactive Aricept 10 mg tablet RxNorm: 114673 1 Tablet(s) PO daily 07/22/2015 05/26/2016 Inactive Mobic 15 mg tablet RxNorm: 383342 1 Tablet(s) PO daily 07/22/2015 05/26/2016 Inactive cyanocobalamin (vit B-12) 1,000 mcg/mL injection solution RxNorm: 605339 Milliliter(s) Inj 07/22/2015 07/22/2015 Inactive liothyronine 5 mcg tablet RxNorm: 423647 1 Tablet(s) PO BID 07/22/2015 09/16/2015 Inactive cyanocobalamin (vit B-12) 1,000 mcg/mL injection solution RxNorm: 342562 Milliliter(s) Inj 07/08/2015 07/08/2015 Inactive cyanocobalamin (vit B-12) 1,000 mcg/mL injection solution RxNorm: 585492 Milliliter(s) Inj 06/23/2015 06/23/2015 Inactive cyanocobalamin (vit B-12) 1,000 mcg/mL injection solution RxNorm: 193639 1 Milliliter(s) Inj 06/08/2015 06/08/2015 Inactive cyanocobalamin (vit B-12) 1,000 mcg/mL injection solution RxNorm: 344205 Milliliter(s) Inj 05/27/2015 05/27/2015 Inactive Aricept 10 mg tablet RxNorm: 302228 1 Tablet(s) PO daily 05/20/2015 07/21/2015 Inactive Zofran 4 mg tablet RxNorm: 826986 1 Tablet(s) PO daily as needed 05/20/2015 06/18/2015 Inactive alprazolam 0.25 mg tablet RxNorm: 392237 1 Tablet(s) PO BID 05/20/2015 10/12/2015 Inactive Mobic 15 mg tablet RxNorm: 523060 1 Tablet(s) PO daily 05/20/2015 07/21/2015 Inactive tramadol ER 100 mg tablet,extended release 24 hr RxNorm: 393285 1 Tablet(s) PO Q6 as needed 05/13/2015 No Stop Date Active cyanocobalamin (vit B-12) 1,000 mcg/mL injection solution RxNorm: 835552 1 Milliliter(s) Inj 05/12/2015 05/12/2015 Inactive Topamax 25 mg tablet RxNorm: 133105 1 Tablet(s) PO BID (start at one pill at bedtime x 1week then twice daily thereafter) 05/12/2015 09/02/2015 Inactive cyanocobalamin (vit B-12) 1,000 mcg/mL injection kit RxNorm: 461879 kit Inj 04/30/2015 04/30/2015 Inactive cyanocobalamin (vit B-12) 1,000 mcg/mL injection solution RxNorm: 846108 Milliliter(s) Inj 04/16/2015 04/16/2015 Inactive levothyroxine 150 mcg tablet RxNorm: 639457 1 Tablet(s) PO daily 04/08/2015 07/21/2015 Inactive cyanocobalamin (vit B-12) 1,000 mcg/mL injection solution RxNorm: 680464 Milliliter(s) 1 Milliliter(s) Inj [id number] 04/08/2015 04/10/2016 Inactive Cytomel 5 mcg tablet RxNorm: 957937 1 Tablet(s) PO BID 04/08/2015 10/12/2015 Inactive Cytomel 5 mcg tablet RxNorm: 520049 1 Tablet(s) PO BID 04/07/2015 04/07/2015 Inactive Cytomel 5 mcg tablet RxNorm: 810996 1 Tablet(s) PO BID 04/07/2015 04/06/2015 Inactive cyanocobalamin (vit B-12) 1,000 mcg/mL injection solution RxNorm: 046738 Milliliter(s) Inj 04/02/2015 04/02/2015 Inactive cyanocobalamin (vit B-12) 1,000 mcg/mL injection solution RxNorm: 269791 Milliliter(s) Inj 03/18/2015 03/18/2015 Inactive cyanocobalamin (vit B-12) 1,000 mcg/mL injection solution RxNorm: 851752 Milliliter(s) 1 Milliliter(s) Inj [id number] 03/18/2015 04/07/2015 Inactive cyanocobalamin (vit B-12) 1,000 mcg/mL injection solution RxNorm: 100413 1 Milliliter(s) Inj [id number] 03/16/2015 03/17/2015 Inactive cyanocobalamin (vit B-12) 1,000 mcg/mL injection solution RxNorm: 611827 Milliliter(s) Inj 03/03/2015 03/03/2015 Inactive cyanocobalamin (vit B-12) 1,000 mcg/mL injection solution RxNorm: 462505 Milliliter(s) Inj 02/18/2015 02/18/2015 Inactive cyanocobalamin (vit B-12) 1,000 mcg/mL injection solution RxNorm: 730530 Milliliter(s) Inj 02/04/2015 02/04/2015 Inactive cyanocobalamin (vit B-12) 1,000 mcg/mL injection solution RxNorm: 818958 Milliliter(s) Inj 01/22/2015 01/22/2015 Inactive Lac-Hydrin Five 5 % lotion RxNorm: 765759 1 TOP daily 01/13/2015 03/13/2015 Inactive Lac-Hydrin Five 5 % lotion RxNorm: 533590 1 TOP daily 01/13/2015 01/12/2015 Inactive cyanocobalamin (vit B-12) 1,000 mcg/mL injection solution RxNorm: 074113 Milliliter(s) Inj 01/08/2015 01/08/2015 Inactive cyanocobalamin (vit B-12) 1,000 mcg/mL injection solution RxNorm: 822483 Milliliter(s) Inj 12/25/2014 12/25/2014 Inactive levothyroxine 150 mcg tablet RxNorm: 416458 1 Tablet(s) PO daily 12/24/2014 04/07/2015 Inactive tramadol 50 mg tablet RxNorm: 169924 1-2 Tablet(s) PO Q6 as needed 12/17/2014 05/12/2015 Inactive alprazolam 0.25 mg tablet RxNorm: 000014 1 Tablet(s) PO BID 12/17/2014 04/15/2015 Inactive Pradaxa 150 mg capsule RxNorm: 6110233 1 Capsule(s) PO BID 12/16/2014 No Stop Date Active metoprolol tartrate 50 mg tablet RxNorm: 855437 1/2 Tablet(s) PO BID 12/16/2014 09/13/2016 Inactive buspirone 15 mg tablet RxNorm: 984927 1 Tablet(s) PO BID 12/16/2014 09/13/2015 Inactive cyanocobalamin (vit B-12) 1,000 mcg/mL injection solution RxNorm: 833619 1 Milliliter(s) Inj [id number] 12/16/2014 03/15/2015 Inactive cyanocobalamin (vit B-12) 1,000 mcg/mL injection solution RxNorm: 610456 1 Milliliter(s) Inj V6cusio 12/16/2014 12/15/2014 Inactive sucralfate 1 gram tablet RxNorm: 490572 Tablet(s) PO QID 12/16/2014 12/10/2015 Inactive cyanocobalamin (vit B-12) 1,000 mcg/mL injection solution RxNorm: 263585 Milliliter(s) Inj 12/10/2014 12/10/2014 Inactive cyanocobalamin (vit B-12) 1,000 mcg/mL injection solution RxNorm: 401809 Milliliter(s) Inj 11/26/2014 11/26/2014 Inactive Zoloft 50 mg tablet RxNorm: 213434 1 Tablet(s) PO daily 11/24/2014 06/21/2015 Inactive Zoloft 50 mg tablet RxNorm: 264319 1 Tablet(s) PO daily 11/24/2014 11/23/2014 Inactive cyanocobalamin (vit B-12) 1,000 mcg/mL injection kit RxNorm: 295210 Milliliter(s) Inj 11/12/2014 11/12/2014 Inactive cyanocobalamin (vit B-12) 1,000 mcg/mL injection solution RxNorm: 796092 Milliliter(s) Inj 10/28/2014 10/28/2014 Inactive [SAVINGS FOR NON-COVERED DRUGS -- BIN:[id number], PCN: [id number], Group: [id number], ID# [id number], Questions: . THIS IS NOT INSURANCE.] promethazine oral RxNorm: 8745 oral No Start Date Active digoxin 125 mcg tablet RxNorm: 923598 Tablet(s) PO every other day No Start Date Active furosemide 40 mg tablet RxNorm: 985714 1 Tablet(s) PO daily No Start Date Active Vitamin D3 5,000 unit tablet RxNorm: 195047 1 Tablet(s) PO daily No Start Date Active erythromycin 250 mg capsule,delayed release RxNorm: 350315 1 Capsule(s) PO AC No Start Date Active Protonix 40 mg tablet,delayed release RxNorm: 430193 1 Tablet(s) PO BID No Start Date Active Cozaar 100 mg tablet RxNorm: 971933 1 Tablet(s) PO daily No Start Date 09/13/2016 Inactive sucralfate 1 gram tablet RxNorm: 122157 Tablet(s) PO QID No Start Date 12/15/2014 Inactive amiodarone 200 mg tablet RxNorm: 884630 2 Tablet(s) PO daily No Start Date 10/13/2015 Inactive buspirone 15 mg tablet RxNorm: 779858 1 Tablet(s) PO daily No Start Date 12/15/2014 Inactive potassium chloride ER 20 mEq tablet,extended release RxNorm: 711977 1 Tablet(s) PO daily No Start Date 10/12/2015 Inactive Prilosec 40 mg capsule,delayed release RxNorm: 728527 1 Capsule(s) PO daily No Start Date 09/02/2015 Inactive [place] 3 capsule RxNorm: Capsule(s) PO No Start Date 10/12/2015 Inactive alprazolam 0.25 mg tablet RxNorm: 317376 Tablet(s) PO QHS No Start Date 12/16/2014 Inactive levothyroxine 125 mcg tablet RxNorm: 270034 1 Tablet(s) PO daily No Start Date 12/23/2014 Inactive liothyronine 5 mcg tablet RxNorm: 812095 1 Tablet(s) PO BID No Start Date 07/21/2015 Inactive Mobic 15 mg tablet RxNorm: 368852 Tablet(s) PO daily No Start Date 05/19/2015 Inactive Norvasc 5 mg tablet RxNorm: 184786 1 Tablet(s) PO daily No Start Date 09/16/2015 Inactive Zofran 4 mg tablet RxNorm: 350963 1 Tablet(s) PO daily as needed No Start Date 05/19/2015 Inactive Tamiflu 75 mg capsule RxNorm: 252397 1 Capsule(s) PO BID No Start Date 07/23/2017 Inactive tramadol 50 mg tablet RxNorm: 193434 1 Tablet(s) PO daily as needed No Start Date 12/16/2014 Inactive amiodarone 200 mg tablet RxNorm: 170118 1 Tablet(s) PO daily No Start Date 10/12/2015 Inactive Zofran ODT 4 mg disintegrating tablet RxNorm: 860136 1 Tablet(s) PO TID as needed No Start Date 05/02/2017 Inactive albuterol sulfate 2.5 mg/3 mL (0.083 %) solution for nebulization RxNorm: 455593 3 Milliliter(s) INH Q6 PRN No Start Date 09/20/2017 Inactive meclizine 25 mg tablet RxNorm: 942853 Tablet(s) PO as needed No Start Date 05/24/2016 Inactive Pradaxa 150 mg capsule RxNorm: 4231265 1 Capsule(s) PO daily No Start Date 12/15/2014 Inactive metoprolol tartrate 50 mg tablet RxNorm: 097131 1/2 Tablet(s) PO No Start Date 12/15/2014 Inactive Aricept 10 mg tablet RxNorm: 513873 Tablet(s) PO daily No Start Date 05/19/2015 Inactive Calmoseptine 0.44 %-20.6 % topical ointment RxNorm: 719184 1 Application TOP BID and as needed to sore on buttocks No Start Date 09/06/2016 Inactive Zithromax Z-Henrique 250 mg tablet RxNorm: 273494 1 Tablet(s) PO UD No Start Date 11/09/2015 Inactive zpack x 1 Medication Administered Medication Codes Instructions Start Date Status cyanocobalamin (vit B-12) 1,000 mcg/mL injection solution RxNorm: 178136 Milliliter 05/24/2018 No longer Active cyanocobalamin (vit B-12) 1,000 mcg/mL injection solution RxNorm: 020979 Milliliter 05/09/2018 No longer Active cyanocobalamin (vit B-12) 1,000 mcg/mL injection solution RxNorm: 847626 Milliliter 04/26/2018 No longer Active cyanocobalamin (vit B-12) 1,000 mcg/mL injection solution RxNorm: 380752 Milliliter 04/12/2018 No longer Active cyanocobalamin (vit B-12) 1,000 mcg/mL injection solution RxNorm: 821261 Milliliter 03/30/2018 No longer Active cyanocobalamin (vit B-12) 1,000 mcg/mL injection solution RxNorm: 190065 Milliliter 03/16/2018 No longer Active cyanocobalamin (vit B-12) 1,000 mcg/mL injection solution RxNorm: 287486 Milliliter 03/02/2018 No longer Active cyanocobalamin (vit B-12) 1,000 mcg/mL injection solution RxNorm: 824922 Milliliter 02/08/2018 No longer Active cyanocobalamin (vit B-12) 1,000 mcg/mL injection solution RxNorm: 099364 Milliliter 01/24/2018 No longer Active cyanocobalamin (vit B-12) 1,000 mcg/mL injection solution RxNorm: 836394 Milliliter 01/10/2018 No longer Active cyanocobalamin (vit B-12) 1,000 mcg/mL injection solution RxNorm: 326164 Milliliter 12/27/2017 No longer Active cyanocobalamin (vit B-12) 1,000 mcg/mL injection solution RxNorm: 753727 1Milliliter 12/12/2017 No longer Active cyanocobalamin (vit B-12) 1,000 mcg/mL injection solution RxNorm: 386689 Milliliter 12/01/2017 No longer Active cyanocobalamin (vit B-12) 1,000 mcg/mL injection solution RxNorm: 374423 1Milliliter 11/17/2017 No longer Active cyanocobalamin (vit B-12) 1,000 mcg/mL injection solution RxNorm: 668218 1Milliliter 11/02/2017 No longer Active cyanocobalamin (vit B-12) 1,000 mcg/mL injection solution RxNorm: 208411 1Milliliter 10/20/2017 No longer Active cyanocobalamin (vit B-12) 1,000 mcg/mL injection solution RxNorm: 823272 Milliliter 10/06/2017 No longer Active cyanocobalamin (vit B-12) 1,000 mcg/mL injection solution RxNorm: 883765 Milliliter 09/21/2017 No longer Active Kenalog 40 mg/mL suspension for injection RxNorm: 4000365 Milliliter 09/15/2017 No longer Active cyanocobalamin (vit B-12) 1,000 mcg/mL injection solution RxNorm: 396434 Milliliter 09/07/2017 No longer Active cyanocobalamin (vit B-12) 1,000 mcg/mL injection solution RxNorm: 607756 Milliliter 08/24/2017 No longer Active cyanocobalamin (vit B-12) 1,000 mcg/mL injection solution RxNorm: 744340 Milliliter 07/06/2017 No longer Active cyanocobalamin (vit B-12) 1,000 mcg/mL injection solution RxNorm: 368814 Milliliter 06/20/2017 No longer Active Kenalog 40 mg/mL suspension for injection RxNorm: 1658576 1Milliliter 06/20/2017 No longer Active cyanocobalamin (vit B-12) 1,000 mcg/mL injection solution RxNorm: 458741 Milliliter 06/05/2017 No longer Active cyanocobalamin (vit B-12) 1,000 mcg/mL injection solution RxNorm: 089213 Milliliter 05/25/2017 No longer Active cyanocobalamin (vit B-12) 1,000 mcg/mL injection solution RxNorm: 544878 Milliliter 05/16/2017 No longer Active cyanocobalamin (vit B-12) 1,000 mcg/mL injection solution RxNorm: 616167 1Milliliter 05/01/2017 No longer Active cyanocobalamin (vit B-12) 1,000 mcg/mL injection solution RxNorm: 513492 Milliliter 04/18/2017 No longer Active cyanocobalamin (vit B-12) 1,000 mcg/mL injection solution RxNorm: 427630 Milliliter 04/06/2017 No longer Active cyanocobalamin (vit B-12) 1,000 mcg/mL injection solution RxNorm: 366546 Milliliter 03/22/2017 No longer Active cyanocobalamin (vit B-12) 1,000 mcg/mL injection solution RxNorm: 238066 Milliliter 03/09/2017 No longer Active cyanocobalamin (vit B-12) 1,000 mcg/mL injection solution RxNorm: 836322 Milliliter 02/23/2017 No longer Active cyanocobalamin (vit B-12) 1,000 mcg/mL injection solution RxNorm: 514021 Milliliter 02/09/2017 No longer Active cyanocobalamin (vit B-12) 1,000 mcg/mL injection solution RxNorm: 607031 Milliliter 01/23/2017 No longer Active cyanocobalamin (vit B-12) 1,000 mcg/mL injection solution RxNorm: 387039 Milliliter 01/10/2017 No longer Active cyanocobalamin (vit B-12) 1,000 mcg/mL injection solution RxNorm: 372658 1Milliliter 12/28/2016 No longer Active cyanocobalamin (vit B-12) 1,000 mcg/mL injection solution RxNorm: 159414 Milliliter 12/14/2016 No longer Active cyanocobalamin (vit B-12) 1,000 mcg/mL injection solution RxNorm: 092805 Milliliter 11/24/2016 No longer Active cyanocobalamin (vit B-12) 1,000 mcg/mL injection solution RxNorm: 249085 1Milliliter 11/07/2016 No longer Active cyanocobalamin (vit B-12) 1,000 mcg/mL injection solution RxNorm: 598394 Milliliter 10/24/2016 No longer Active cyanocobalamin (vit B-12) 1,000 mcg/mL injection solution RxNorm: 761043 1Milliliter 09/29/2016 No longer Active cyanocobalamin (vit B-12) 1,000 mcg/mL injection solution RxNorm: 813824 Milliliter 08/29/2016 No longer Active cyanocobalamin (vit B-12) 1,000 mcg/mL injection solution RxNorm: 003978 Milliliter 08/04/2016 No longer Active cyanocobalamin (vit B-12) 1,000 mcg/mL injection solution RxNorm: 606610 Milliliter 07/21/2016 No longer Active cyanocobalamin (vit B-12) 1,000 mcg/mL injection solution RxNorm: 759020 1Milliliter 07/05/2016 No longer Active cyanocobalamin (vit B-12) 1,000 mcg/mL injection solution RxNorm: 222737 1Milliliter 06/22/2016 No longer Active cyanocobalamin (vit B-12) 1,000 mcg/mL injection solution RxNorm: 642733 Milliliter 06/09/2016 No longer Active cyanocobalamin (vit B-12) 1,000 mcg/mL injection solution RxNorm: 744922 1Milliliter 05/25/2016 No longer Active cyanocobalamin (vit B-12) 1,000 mcg/mL injection solution RxNorm: 566953 Milliliter 05/10/2016 No longer Active cyanocobalamin (vit B-12) 1,000 mcg/mL injection solution RxNorm: 976152 Milliliter 04/26/2016 No longer Active cyanocobalamin (vit B-12) 1,000 mcg/mL injection solution RxNorm: 533032 Milliliter 04/11/2016 No longer Active cyanocobalamin (vit B-12) 1,000 mcg/mL injection solution RxNorm: 547943 Milliliter 03/31/2016 No longer Active cyanocobalamin (vit B-12) 1,000 mcg/mL injection solution RxNorm: 026462 1Milliliter 03/15/2016 No longer Active cyanocobalamin (vit B-12) 1,000 mcg/mL injection solution RxNorm: 690239 Milliliter 02/25/2016 No longer Active cyanocobalamin (vit B-12) 1,000 mcg/mL injection solution RxNorm: 937700 1Milliliter 02/02/2016 No longer Active cyanocobalamin (vit B-12) 1,000 mcg/mL injection solution RxNorm: 500314 Milliliter 01/18/2016 No longer Active cyanocobalamin (vit B-12) 1,000 mcg/mL injection solution RxNorm: 540960 Milliliter 12/29/2015 No longer Active cyanocobalamin (vit B-12) 1,000 mcg/mL injection solution RxNorm: 903549 Milliliter 12/08/2015 No longer Active cyanocobalamin (vit B-12) 1,000 mcg/mL injection solution RxNorm: 620144 Milliliter 11/23/2015 No longer Active cyanocobalamin (vit B-12) 1,000 mcg/mL injection solution RxNorm: 304156 Milliliter 11/11/2015 No longer Active cyanocobalamin (vit B-12) 1,000 mcg/mL injection solution RxNorm: 161453 1Milliliter 10/29/2015 No longer Active cyanocobalamin (vit B-12) 1,000 mcg/mL injection solution RxNorm: 720228 1Milliliter 10/12/2015 No longer Active cyanocobalamin (vit B-12) 1,000 mcg/mL injection solution RxNorm: 140558 1Milliliter 09/29/2015 No longer Active cyanocobalamin (vit B-12) 1,000 mcg/mL injection solution RxNorm: 257895 1Milliliter 09/17/2015 No longer Active cyanocobalamin (vit B-12) 1,000 mcg/mL injection solution RxNorm: 945378 1Milliliter 09/03/2015 No longer Active cyanocobalamin (vit B-12) 1,000 mcg/mL injection solution RxNorm: 360449 Milliliter 08/17/2015 No longer Active cyanocobalamin (vit B-12) 1,000 mcg/mL injection solution RxNorm: 542261 Milliliter 08/06/2015 No longer Active cyanocobalamin (vit B-12) 1,000 mcg/mL injection solution RxNorm: 262797 Milliliter 07/22/2015 No longer Active cyanocobalamin (vit B-12) 1,000 mcg/mL injection solution RxNorm: 085197 Milliliter 07/08/2015 No longer Active cyanocobalamin (vit B-12) 1,000 mcg/mL injection solution RxNorm: 784450 Milliliter 06/23/2015 No longer Active cyanocobalamin (vit B-12) 1,000 mcg/mL injection solution RxNorm: 883741 1Milliliter 06/08/2015 No longer Active cyanocobalamin (vit B-12) 1,000 mcg/mL injection solution RxNorm: 754423 Milliliter 05/27/2015 No longer Active cyanocobalamin (vit B-12) 1,000 mcg/mL injection solution RxNorm: 250426 1Milliliter 05/12/2015 No longer Active cyanocobalamin (vit B-12) 1,000 mcg/mL injection kit RxNorm: 084960 kit 04/30/2015 No longer Active cyanocobalamin (vit B-12) 1,000 mcg/mL injection solution RxNorm: 251465 Milliliter 04/16/2015 No longer Active cyanocobalamin (vit B-12) 1,000 mcg/mL injection solution RxNorm: 905129 Milliliter 04/02/2015 No longer Active cyanocobalamin (vit B-12) 1,000 mcg/mL injection solution RxNorm: 520615 Milliliter 03/18/2015 No longer Active cyanocobalamin (vit B-12) 1,000 mcg/mL injection solution RxNorm: 898605 Milliliter 03/03/2015 No longer Active cyanocobalamin (vit B-12) 1,000 mcg/mL injection solution RxNorm: 710516 Milliliter 02/18/2015 No longer Active cyanocobalamin (vit B-12) 1,000 mcg/mL injection solution RxNorm: 342094 Milliliter 02/04/2015 No longer Active cyanocobalamin (vit B-12) 1,000 mcg/mL injection solution RxNorm: 466134 Milliliter 01/22/2015 No longer Active cyanocobalamin (vit B-12) 1,000 mcg/mL injection solution RxNorm: 814714 Milliliter 01/08/2015 No longer Active cyanocobalamin (vit B-12) 1,000 mcg/mL injection solution RxNorm: 364692 Milliliter 12/25/2014 No longer Active cyanocobalamin (vit B-12) 1,000 mcg/mL injection solution RxNorm: 031333 Milliliter 12/10/2014 No longer Active cyanocobalamin (vit B-12) 1,000 mcg/mL injection solution RxNorm: 403547 Milliliter 11/26/2014 No longer Active cyanocobalamin (vit B-12) 1,000 mcg/mL injection kit RxNorm: 800593 Milliliter 11/12/2014 No longer Active cyanocobalamin (vit B-12) 1,000 mcg/mL injection solution RxNorm: 072926 Milliliter 10/28/2014 No longer Active Immunizations Vaccine [...] (primary) hypertension ICD-10: I10 ICD-9: 401.9 05/03/2018 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 ICD-9: 266.2 04/26/2018 Encounter for immunization ICD-10: Z23 ICD-9: V03.82 [...] initial encounter ICD-10: S51.812A ICD-9: 881.00 07/06/2017 Atrophy of thyroid (acquired) ICD-10: E03.4 ICD-9: 244.8 07/06/2017 Slow transit constipation ICD-10: K59.01 ICD-9: 564.01 07/06/2017 Candidiasis of skin and nail ICD-10: B37.2 ICD-9: 112.3 07/06/2017 Acute laryngopharyngitis ICD-10: J06.0 ICD-9: 465.0 06/20/2017 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 ICD-9: 281.1 06/20/2017 Encounter for general adult medical examination with abnormal findings ICD-10: Z00.01 ICD-9: V70.0 06/05/2017 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 ICD-9: 733.6 03/23/2017 Chest pain on breathing ICD-10: R07.1 ICD-9: 786.52 03/23/2017 Other fatigue ICD-10: R53.83 ICD-9: 780.79 [...] Result Date Tsh Ord6 TSH (3rd IS) 3.20 uIU/mL 02/26/2018 Free T4 Xax125 FREE T4 0.99 ng/dL 02/26/2018 Cbc With [...] 28.5 pg 02/26/2018 Cbc With Differential Ord2 [place]% 10.3 % 02/26/2018 Cbc With Differential Ord2 [...] 1.80 K/ul 02/26/2018 Cbc With Differential Ord2 [place] ABS# 0.7 K/ul 02/26/2018 Cbc With Differential Ord2 Eos ABS# 0.2 K/ul 02/26/2018 Cbc With Differential Ord2 Baso ABS# 0.0 K/ul 02/26/2018 B12 Wve565 B12 889.00 pg/ml 02/26/2018 Comp Metabolic Hgr498 NA 142 mEq/L 11/23/2017 Comp Metabolic Zpl700 K 4.9 mEq/L 11/23/2017 Comp Metabolic Xbp149 CL 112 mEq/L 11/23/2017 Comp Metabolic Afw396 CO2 18.0 mEq/L 11/23/2017 Comp Metabolic Dqp347 ANION GAP 17 11/23/2017 Comp Metabolic Www329 GLUCOSE 123 mg/dL 11/23/2017 Comp Metabolic Cqo107 Creat 1.0 mg/dL 11/23/2017 Comp Metabolic Sme337 eGFR 59 ml/min/1.73m2 11/23/2017 Comp Metabolic Qck088 BUN 24 mg/dL 11/23/2017 Comp Metabolic Zzm692 B/C Ratio 25.0 Ratio 11/23/2017 Comp Metabolic Utp255 CALCIUM 9.4 mg/dL 11/23/2017 Comp Metabolic Wdo837 ALK PHOS 56 U/L 11/23/2017 Comp Metabolic Oju834 AST(SGOT) 17 U/L 11/23/2017 Comp Metabolic Nhr252 ALT(SGPT) 16 U/L 11/23/2017 Comp Metabolic Idz774 BILI T 0.7 mg/dL 11/23/2017 Comp Metabolic Occ685 ALBUMIN 3.8 g/dL 11/23/2017 Comp Metabolic Bob884 TPRO 6.2 g/dL 11/23/2017 Comp Metabolic Mse419 GLOB 2.4 g/dL 11/23/2017 Comp Metabolic Ggl605 A/G Ratio 1.6 Ratio 11/23/2017 Comp Metabolic Xaz373 Osmo 289 mOsmo 11/23/2017 Digoxin Ord9 DIGOXIN 0.7 NG/ML 11/23/2017 Free T4 Tku005 FREE T4 1.04 ng/dL 11/23/2017 %Hba1C Vfv241 % HbA1c 75219- 6 6.4 % 11/23/2017 %Hba1C Dbm903 Gluc Ave 137 mg/dL 11/23/2017 Tsh Ord6 TSH (3rd IS) 1.00 uIU/mL 11/23/2017 Microalbumin Vto189 MicroAlb <0.7 mg/dL 11/23/2017 Lipid Ord30 CHOL 179 mg/dL 11/23/2017 Lipid Ord30 HDL 51.0 mg/dl 11/23/2017 Lipid Ord30 TRIG 134 mg/dL 11/23/2017 Lipid Ord30 LDL 101 mg/dL 11/23/2017 Lipid Ord30 C/HDL 3.5 Ratio 11/23/2017 Comp Metabolic Oht467 NA 141 mEq/L 01/23/2017 Comp Metabolic Lvi828 K 4.5 mEq/L 01/23/2017 Comp Metabolic Mzz858 CL 107 mEq/L 01/23/2017 Comp Metabolic Enh334 CO2 21.0 mEq/L 01/23/2017 Comp Metabolic Xhj887 ANION GAP 18 01/23/2017 Comp Metabolic Ius816 GLUCOSE 138 mg/dL 01/23/2017 Comp Metabolic Whx341 Creat 1.0 mg/dL 01/23/2017 Comp Metabolic Ojo040 eGFR 56 ml/min/1.73m2 01/23/2017 Comp Metabolic Nbs684 BUN 26 mg/dL 01/23/2017 Comp Metabolic Kof023 B/C Ratio 25.7 Ratio 01/23/2017 Comp Metabolic Lgf050 CALCIUM 9.0 mg/dL 01/23/2017 Comp Metabolic Pwy267 ALK PHOS 37 U/L 01/23/2017 Comp Metabolic Gfx012 AST(SGOT) 20 U/L 01/23/2017 Comp Metabolic Bfd413 ALT(SGPT) 25 U/L 01/23/2017 Comp Metabolic Guv236 BILI T 0.9 mg/dL 01/23/2017 Comp Metabolic Rrg623 ALBUMIN 3.8 g/dL 01/23/2017 Comp Metabolic Kpe678 TPRO 6.5 g/dL 01/23/2017 Comp Metabolic Jem693 GLOB 2.7 g/dL 01/23/2017 Comp Metabolic Mac614 A/G Ratio 1.4 Ratio 01/23/2017 Comp Metabolic Xgt014 Osmo 288 mOsmo 01/23/2017 Free T4 Bfm865 FREE T4 1.05 ng/dL 01/23/2017 %Hba1C Naq997 % HbA1c 82577- 6 6.1 % 01/23/2017 %Hba1C Cqz136 Gluc Ave 128 mg/dL 01/23/2017 Tsh Ord6 hTSH II 1.68 uIU/mL 01/23/2017 Culture Urine [id number] URINE CULTURE SEE NOTES 11/10/2016 Culture Urine [id number] Continued Results 11/10/2016 Urine Culture Ucult Complete [...] Ord15 CALCIUM 9.3 mg/dL 09/29/2016 Free T4 Cjf052 FREE T4 0.99 ng/dL 09/07/2016 Cbc With [...] 27.3 % 09/07/2016 Cbc With Differential Ord2 [place]% 9.8 % 09/07/2016 Cbc With Differential Ord2 [...] 1.75 K/ul 09/07/2016 Cbc With Differential Ord2 [place] ABS# 0.6 K/ul 09/07/2016 Cbc With Differential Ord2 Eos ABS# 0.1 K/ul 09/07/2016 Cbc With Differential Ord2 Baso ABS# 0.0 K/ul 09/07/2016 Tsh Ord6 hTSH II 1.41 uIU/mL 09/07/2016 Culture Urine [id number] URINE CULTURE SEE NOTES 06/27/2016 Hepatic Evs041 ALBUMIN 4.2 g/dL 06/22/2016 Hepatic Qsp560 TPRO 7.0 g/dL 06/22/2016 Hepatic Lgd131 GLOB 2.8 g/dL 06/22/2016 Hepatic Ald510 A/G Ratio 1.5 Ratio 06/22/2016 Hepatic Tex226 ALK PHOS 54 U/L 06/22/2016 Hepatic Dxr316 ALT(SGPT) 30 U/L 06/22/2016 Hepatic Ymh269 AST(SGOT) 24 U/L 06/22/2016 Hepatic Ehi692 BILI T 1.1 mg/dL 06/22/2016 Hepatic Hpl155 BILI D 0.2 mg/dL 06/22/2016 Hepatic Kdi545 BILI I 0.9 mg/dL 06/22/2016 Lipid Ord30 CHOL 196 mg/dL 06/22/2016 Lipid Ord30 HDL 63.0 mg/dl 06/22/2016 Lipid Ord30 TRIG 154 mg/dL 06/22/2016 Lipid Ord30 LDL 102 mg/dL 06/22/2016 Lipid Ord30 C/HDL 3.1 Ratio 06/22/2016 Tsh Ord6 hTSH II 1.26 uIU/mL 06/14/2016 Free T4 [id number] FREE T4 1.09 ng/dL 06/14/2016 Comp Metabolic Wej569 NA 139 mEq/L 06/14/2016 Comp Metabolic Mmm644 K 4.6 mEq/L 06/14/2016 Comp Metabolic Bbu526 CL 108 mEq/L 06/14/2016 Comp Metabolic Aqf011 CO2 22.0 mEq/L 06/14/2016 Comp Metabolic Wez396 ANION GAP 14 06/14/2016 Comp Metabolic Bck287 GLUCOSE 114 mg/dL 06/14/2016 Comp Metabolic Klj717 Creat 1.2 mg/dL 06/14/2016 Comp Metabolic Jus312 eGFR 48 ml/min/1.73m2 06/14/2016 Comp Metabolic Wnh631 BUN 24 mg/dL 06/14/2016 Comp Metabolic Zit949 B/C Ratio 20.9 Ratio 06/14/2016 Comp Metabolic Vyk943 CALCIUM 9.9 mg/dL 06/14/2016 Comp Metabolic Gvp948 ALK PHOS 47 U/L 06/14/2016 Comp Metabolic Lcu680 AST(SGOT) 28 U/L 06/14/2016 Comp Metabolic Qfe108 ALT(SGPT) 32 U/L 06/14/2016 Comp Metabolic Dbw803 BILI T 0.9 mg/dL 06/14/2016 Comp Metabolic Kdp642 ALBUMIN 4.1 g/dL 06/14/2016 Comp Metabolic Qjc978 TPRO 6.9 g/dL 06/14/2016 Comp Metabolic Yfo415 GLOB 2.8 g/dL 06/14/2016 Comp Metabolic Soq417 A/G Ratio 1.5 Ratio 06/14/2016 Comp Metabolic Gtu137 Osmo 282 mOsmo 06/14/2016 Digoxin Ord9 DIGOXIN 0.7 NG/ML 02/02/2016 Hepatic Gcg652 ALBUMIN 4.0 g/dL 02/02/2016 Hepatic Bck258 TPRO 7.0 g/dL 02/02/2016 Hepatic Sxu928 GLOB 3.0 g/dL 02/02/2016 Hepatic Dwb963 A/G Ratio 1.3 Ratio 02/02/2016 Hepatic Twk029 ALK PHOS 57 U/L 02/02/2016 Hepatic Dbz967 ALT(SGPT) 62 U/L 02/02/2016 Hepatic Vov652 AST(SGOT) 54 U/L 02/02/2016 Hepatic Vxa976 BILI T 0.8 mg/dL 02/02/2016 Hepatic Lvf224 BILI D 0.2 mg/dL 02/02/2016 Hepatic Sic359 BILI I 0.6 mg/dL 02/02/2016 Free T4 Rhw360 FREE T4 1.23 ng/dL 02/02/2016 Tsh Ord6 hTSH II 0.28 uIU/mL 02/02/2016 Urine Culture Ucult Complete No Growth Day 2 11/25/2015 Urine Culture Ucult Preliminary No Growth Day 1 11/25/2015 Hepatic Mps961 ALBUMIN 3.9 g/dL 11/11/2015 Hepatic Ngr443 TPRO 7.0 g/dL 11/11/2015 Hepatic Rzq767 GLOB 3.1 g/dL 11/11/2015 Hepatic Kqc054 A/G Ratio 1.3 Ratio 11/11/2015 Hepatic Wme564 ALK PHOS 63 U/L 11/11/2015 Hepatic Bnd343 ALT(SGPT) 107 U/L 11/11/2015 Hepatic Jen339 AST(SGOT) 101 U/L 11/11/2015 Hepatic Soz137 BILI T 0.6 mg/dL 11/11/2015 Hepatic Pgt814 BILI D 0.1 mg/dL 11/11/2015 Hepatic Ntl204 BILI I 0.5 mg/dL 11/11/2015 Comp Metabolic Vek472 NA 138 mEq/L 10/29/2015 Comp Metabolic Yjq275 K 5.0 mEq/L 10/29/2015 Comp Metabolic Fcf868 CL 105 mEq/L 10/29/2015 Comp Metabolic Thu059 CO2 23.0 mEq/L 10/29/2015 Comp Metabolic Irb057 ANION GAP 15 10/29/2015 Comp Metabolic Tyo634 GLUCOSE 105 mg/dL 10/29/2015 Comp Metabolic Cav183 Creat 1.0 mg/dL 10/29/2015 Comp Metabolic Hxk500 eGFR 55 ml/min/1.73m2 10/29/2015 Comp Metabolic Jbg856 BUN 20 mg/dL 10/29/2015 Comp Metabolic Umf568 B/C Ratio 19.4 Ratio 10/29/2015 Comp Metabolic Tbn754 CALCIUM 8.8 mg/dL 10/29/2015 Comp Metabolic Flo815 ALK PHOS 56 U/L 10/29/2015 Comp Metabolic Fci758 AST(SGOT) 66 U/L 10/29/2015 Comp Metabolic Whi785 ALT(SGPT) 78 U/L 10/29/2015 Comp Metabolic Rlo309 BILI T 0.7 mg/dL 10/29/2015 Comp Metabolic Yoe232 ALBUMIN 3.6 g/dL 10/29/2015 Comp Metabolic Qma833 TPRO 6.6 g/dL 10/29/2015 Comp Metabolic Sjw838 GLOB 3.0 g/dL 10/29/2015 Comp Metabolic Yws257 A/G Ratio 1.2 Ratio 10/29/2015 Comp Metabolic Jva564 Osmo 279 mOsmo 10/29/2015 Comp Metabolic Fkv431 NA 136 mEq/L 09/03/2015 Comp Metabolic Mmk461 K 4.4 mEq/L 09/03/2015 Comp Metabolic Cum879 CL 103 mEq/L 09/03/2015 Comp Metabolic Sef213 CO2 24.0 mEq/L 09/03/2015 Comp Metabolic Ceh930 ANION GAP 13 09/03/2015 Comp Metabolic Drk050 GLUCOSE 87 mg/dL 09/03/2015 Comp Metabolic Bie895 Creat 1.1 mg/dL 09/03/2015 Comp Metabolic Dpy751 eGFR 53 ml/min/1.73m2 09/03/2015 Comp Metabolic Qow309 BUN 17 mg/dL 09/03/2015 Comp Metabolic Mpq474 B/C Ratio 16.2 Ratio 09/03/2015 Comp Metabolic Qqk948 CALCIUM 9.0 mg/dL 09/03/2015 Comp Metabolic Ahn471 ALK PHOS 55 U/L 09/03/2015 Comp Metabolic Kjf105 AST(SGOT) 83 U/L 09/03/2015 Comp Metabolic Ooq665 ALT(SGPT) 126 U/L 09/03/2015 Comp Metabolic Uxn650 BILI T 0.9 mg/dL 09/03/2015 Comp Metabolic Wpa370 ALBUMIN 3.9 g/dL 09/03/2015 Comp Metabolic Kak513 TPRO 6.8 g/dL 09/03/2015 Comp Metabolic Cho122 GLOB 2.9 g/dL 09/03/2015 Comp Metabolic Djy769 A/G Ratio 1.4 Ratio 09/03/2015 Comp Metabolic Pbt071 Osmo 273 mOsmo 09/03/2015 Total T3 Ord42 TT3 0.6 ng/ml 07/09/2015 Tsh Ord6 hTSH II 1.62 uIU/mL 07/09/2015 Free T4 Ere253 FREE T4 1.23 ng/dL 04/02/2015 Tsh Ord6 hTSH II 5.95 uIU/mL 04/02/2015 Total T3 Ord42 TT3 0.5 ng/ml [...] clear 05/25/2017 None Full Exam - General 1995 Ears/Nose/Throat [...] Procedure Codes Date THER/PROPH/DIAG INJ SC/IM CPT-4: 13712 05/24/2018 THER/PROPH/DIAG INJ SC/IM CPT-4: 30590 05/09/2018 THER/PROPH/DIAG INJ SC/IM CPT-4: 76710 04/26/2018 VITAMIN B12 INJECTION CPT- 4: J3420 04/26/2018 THER/PROPH/DIAG INJ SC/IM CPT-4: 44862 04/12/2018 THER/PROPH/DIAG INJ SC/IM CPT-4: 45350 03/30/2018 THER/PROPH/DIAG INJ SC/IM CPT-4: 49169 03/16/2018 VITAMIN B12 INJECTION CPT- 4: J3420 03/16/2018 ADMIN INFLUENZA VIRUS VAC CPT-4: G0008 03/16/2018 FLU VACC PRSV FREE INC ANTIG Formatting Model/CDA Sections, Assigned to/Nga Ojeda CPT-4: [id number] 03/16/2018 THER/PROPH/DIAG INJ SC/IM CPT-4: 32043 03/02/2018 THER/PROPH/DIAG INJ SC/IM CPT-4: 46394 02/08/2018 THER/PROPH/DIAG INJ SC/IM CPT-4: 88484 01/24/2018 THER/PROPH/DIAG INJ SC/IM CPT-4: 48740 01/10/2018 THER/PROPH/DIAG INJ SC/IM CPT-4: 52517 12/27/2017 VITAMIN B12 INJECTION CPT- 4: J3420 12/27/2017 THER/PROPH/DIAG INJ SC/IM CPT-4: 13090 12/12/2017 THER/PROPH/DIAG INJ SC/IM CPT-4: 72053 12/01/2017 VITAMIN B12 INJECTION CPT- 4: J3420 12/01/2017 THER/PROPH/DIAG INJ SC/IM CPT-4: 06501 11/17/2017 THER/PROPH/DIAG INJ SC/IM CPT-4: 65598 11/02/2017 THER/PROPH/DIAG INJ SC/IM CPT-4: 30426 10/20/2017 THER/PROPH/DIAG INJ SC/IM CPT-4: 27663 10/06/2017 THER/PROPH/DIAG INJ SC/IM CPT-4: 42936 09/21/2017 TRIAMCINOLONE ACET INJ NOS CPT-4: J3301 09/15/2017 THER/PROPH/DIAG INJ SC/IM CPT-4: 94091 09/07/2017 THER/PROPH/DIAG INJ SC/IM CPT-4: 81484 08/24/2017 THER/PROPH/DIAG INJ SC/IM CPT-4: 92209 07/06/2017 THER/PROPH/DIAG INJ SC/IM CPT-4: 60060 06/20/2017 TRIAMCINOLONE ACET INJ NOS CPT-4: J3301 06/20/2017 PPPS, SUBSEQ VISIT CPT- 4: G0439 06/05/2017 THER/PROPH/DIAG INJ SC/IM CPT-4: 08122 06/05/2017 THER/PROPH/DIAG INJ SC/IM CPT-4: 88601 05/25/2017 VITAMIN B12 INJECTION CPT- 4: J3420 05/25/2017 THER/PROPH/DIAG INJ SC/IM CPT-4: 14440 05/16/2017 THER/PROPH/DIAG INJ SC/IM CPT-4: 38111 05/01/2017 THER/PROPH/DIAG INJ SC/IM CPT-4: 83775 04/18/2017 THER/PROPH/DIAG INJ SC/IM CPT-4: 97125 04/06/2017 ADMIN INFLUENZA VIRUS VAC CPT-4: G0008 03/22/2017 FLU VACC PRSV FREE INC ANTIG CPT-4: 59279 03/22/2017 THER/PROPH/DIAG INJ SC/IM CPT-4: 23386 03/09/2017 THER/PROPH/DIAG INJ SC/IM CPT-4: 22997 02/23/2017 THER/PROPH/DIAG INJ SC/IM CPT-4: 76404 02/09/2017 THER/PROPH/DIAG INJ SC/IM CPT-4: 84103 01/23/2017 THER/PROPH/DIAG INJ SC/IM CPT-4: 25727 01/10/2017 THER/PROPH/DIAG INJ SC/IM CPT-4: 92586 12/28/2016 THER/PROPH/DIAG INJ SC/IM CPT-4: 63590 12/14/2016 THER/PROPH/DIAG INJ SC/IM CPT-4: 04366 11/24/2016 URINALYSIS NONAUTO W/O SCOPE CPT-4: 22446 11/07/2016 THER/PROPH/DIAG INJ SC/IM CPT-4: 92408 11/07/2016 THER/PROPH/DIAG INJ SC/IM CPT-4: 83111 10/24/2016 THER/PROPH/DIAG INJ SC/IM CPT-4: 49244 09/29/2016 THER/PROPH/DIAG INJ SC/IM CPT-4: 40104 08/29/2016 THER/PROPH/DIAG INJ SC/IM CPT-4: 47210 08/04/2016 THER/PROPH/DIAG INJ SC/IM CPT-4: 03593 07/21/2016 THER/PROPH/DIAG INJ SC/IM CPT-4: 64247 07/05/2016 THER/PROPH/DIAG INJ SC/IM CPT-4: 15923 06/22/2016 URINALYSIS NONAUTO W/O SCOPE CPT-4: 62522 06/22/2016 THER/PROPH/DIAG INJ SC/IM CPT-4: 92248 06/09/2016 PPPS, SUBSEQ VISIT CPT- 4: G0439 05/30/2016 ADMIN PNEUMOCOCCAL VACCINE SNOMED CT: 29454709 CPT-4: G0009 05/25/2016 Pneumococcal Polysaccharide Vaccine, 23-Valent, Ad CPT-4: 35548 05/25/2016 THER/PROPH/DIAG INJ SC/IM CPT-4: 95019 05/25/2016 THER/PROPH/DIAG INJ SC/IM CPT-4: 94004 05/10/2016 TRIAMCINOLONE ACET INJ NOS CPT-4: J3301 04/26/2016 VITAMIN B12 INJECTION CPT- 4: J3420 04/26/2016 THER/PROPH/DIAG INJ SC/IM CPT-4: 11397 04/11/2016 THER/PROPH/DIAG INJ SC/IM CPT-4: 49118 03/31/2016 ADMIN INFLUENZA VIRUS VAC CPT-4: G0008 03/15/2016 FLU VACC 4 STEPHANIE [address] YRS PLUS IM SNOMED CT: [id number] CPT-4: 84223 03/15/2016 THER/PROPH/DIAG INJ SC/IM CPT-4: 02710 02/25/2016 THER/PROPH/DIAG INJ SC/IM CPT-4: 38702 02/02/2016 THER/PROPH/DIAG INJ SC/IM CPT-4: 05364 01/18/2016 VITAMIN B12 INJECTION CPT- 4: J3420 12/29/2015 THER/PROPH/DIAG INJ SC/IM CPT-4: 40398 12/29/2015 THER/PROPH/DIAG INJ SC/IM CPT-4: 61476 12/08/2015 THER/PROPH/DIAG INJ SC/IM CPT-4: 81473 11/23/2015 URINALYSIS NONAUTO W/O SCOPE CPT-4: 83220 11/23/2015 THER/PROPH/DIAG INJ SC/IM CPT-4: 98286 11/11/2015 THER/PROPH/DIAG INJ SC/IM CPT-4: 50052 10/29/2015 THER/PROPH/DIAG INJ SC/IM CPT-4: 83528 10/12/2015 VITAMIN B12 INJECTION CPT- 4: J3420 10/12/2015 THER/PROPH/DIAG INJ SC/IM CPT-4: 41396 09/29/2015 THER/PROPH/DIAG INJ SC/IM CPT-4: 05400 09/17/2015 THER/PROPH/DIAG INJ SC/IM CPT-4: 98983 09/03/2015 THER/PROPH/DIAG INJ SC/IM CPT-4: 29472 08/17/2015 THER/PROPH/DIAG INJ SC/IM CPT-4: 34340 08/06/2015 THER/PROPH/DIAG INJ SC/IM CPT-4: 96093 07/22/2015 THER/PROPH/DIAG INJ SC/IM CPT-4: 78960 07/08/2015 THER/PROPH/DIAG INJ SC/IM CPT-4: 56773 06/23/2015 THER/PROPH/DIAG INJ SC/IM CPT-4: 32567 06/08/2015 THER/PROPH/DIAG INJ SC/IM CPT-4: 54564 05/27/2015 DESTRUCT PREMALG LESION CPT-4: 12741 05/19/2015 DESTRUCT PREMALG LES 2-14 CPT-4: 04064 05/19/2015 THER/PROPH/DIAG INJ SC/IM CPT-4: 28766 05/12/2015 VITAMIN B12 INJECTION CPT- 4: J3420 05/12/2015 THER/PROPH/DIAG INJ SC/IM CPT-4: 09308 04/30/2015 VITAMIN B12 INJECTION CPT- 4: J3420 04/30/2015 THER/PROPH/DIAG INJ SC/IM CPT-4: 11085 04/16/2015 THER/PROPH/DIAG INJ SC/IM CPT-4: 58192 04/02/2015 VITAMIN B12 INJECTION CPT- 4: J3420 04/02/2015 THER/PROPH/DIAG INJ SC/IM CPT-4: 39417 03/18/2015 THER/PROPH/DIAG INJ SC/IM CPT-4: 86990 03/03/2015 THER/PROPH/DIAG INJ SC/IM CPT-4: 70280 02/18/2015 THER/PROPH/DIAG INJ SC/IM CPT-4: 39136 02/04/2015 VITAMIN B12 INJECTION CPT- 4: J3420 02/04/2015 THER/PROPH/DIAG INJ SC/IM CPT-4: 47797 01/22/2015 THER/PROPH/DIAG INJ SC/IM CPT-4: 32451 01/08/2015 VITAMIN B12 INJECTION CPT- 4: J3420 01/08/2015 THER/PROPH/DIAG INJ SC/IM CPT-4: 74297 12/25/2014 VITAMIN B12 INJECTION CPT- 4: J3420 12/25/2014 THER/PROPH/DIAG INJ SC/IM CPT-4: 35846 12/10/2014 VITAMIN B12 INJECTION CPT- 4: J3420 12/10/2014 THER/PROPH/DIAG INJ SC/IM CPT-4: 75814 11/26/2014 VITAMIN B12 INJECTION CPT- 4: J3420 11/26/2014 THER/PROPH/DIAG INJ SC/IM CPT-4: 29739 11/12/2014 VITAMIN B12 INJECTION CPT- 4: J3420 11/12/2014 THER/PROPH/DIAG INJ SC/IM CPT-4: 01681 10/28/2014 Vital Signs Date Vital 05/03/2018 Blood Pressure 1: 140/70 Code: 8480-6 BMI: 26.0 Code: 95060-9 Heart Rate 1: 70 bpm Height: 5'6" SpO2: 94% Weight: 161 lbs 04/26/2018 Height: 5'6" 02/26/2018 Blood Pressure 1: 130/72 Code: 8480-6 BMI: 27.9 Code: 56059-5 Heart Rate 1: 72 bpm Height: 5'6" SpO2: 93% Weight: 173 lbs 12/12/2017 Blood Pressure 1: 126/74 Code: 8480-6 BMI: 27.4 Code: 29892-9 Heart Rate 1: 83 bpm Height: 5'6" SpO2: 98% Weight: 170 lbs 12/04/2017 Blood Pressure 1: 104/68 Code: 8480-6 BMI: 28.2 Code: 22555-7 Heart Rate 1: 85 bpm Height: 5'6" SpO2: 95% Weight: 175 lbs 11/20/2017 Blood Pressure 1: 130/68 Code: 8480-6 BMI: 28.4 Code: 22113-3 Heart Rate 1: 80 bpm Height: 5'6" SpO2: 99% Weight: 176 lbs 11/02/2017 Height: 5'6" 09/15/2017 Blood Pressure 1: 134/74 Code: 8480-6 BMI: 28.4 Code: 19201-2 Heart Rate 1: 88 bpm Height: 5'6" SpO2: 98% Weight: 176 lbs 09/07/2017 Blood Pressure 1: 124/64 Code: 8480-6 Heart Rate 1: 90 bpm Height: SpO2: 97% Weight: 08/30/2017 Blood Pressure 1: 140/76 Code: 8480-6 BMI: 28.4 Code: 75608-2 Heart Rate 1: 90 bpm Height: 5'6" SpO2: 94% Weight: 176 lbs 07/06/2017 Blood Pressure 1: 132/66 Code: 8480-6 BMI: 29.4 Code: 66282-4 Heart Rate 1: 85 bpm Height: 5'6" SpO2: 97% Weight: 182 lbs 06/20/2017 Blood Pressure 1: 134/86 Code: 8480-6 Heart Rate 1: 90 bpm Height: SpO2: 98% Weight: 06/05/2017 BMI: 29.1 Code: 39795-4 Height: 5'6" Weight: 180 lbs 05/25/2017 Blood Pressure 1: 126/76 Code: 8480-6 BMI: 29.1 Code: 83040-1 Heart Rate 1: 77 bpm Height: 5'6" SpO2: 97% Weight: 180 lbs 03/23/2017 Blood Pressure 1: 142/84 Code: 8480-6 BMI: 29.1 Code: 84393-3 Heart Rate 1: 91 bpm Height: 5'6" SpO2: 97% Weight: 180 lbs 01/23/2017 Blood Pressure 1: 150/90 Code: 8480-6 BMI: 29.9 Code: 37153-4 Heart Rate 1: 81 bpm Height: 5'6" SpO2: 97% Weight: 185 lbs 11/02/2016 Blood Pressure 1: 148/78 Code: 8480-6 BMI: 29.7 Code: 11810-9 Heart Rate 1: 87 bpm Height: 5'6" SpO2: 97% Weight: 184 lbs 09/29/2016 Blood Pressure 1: 128/78 Code: 8480-6 BMI: 29.7 Code: 04331-5 Heart Rate 1: 78 bpm Height: 5'6" SpO2: 98% Weight: 184 lbs 07/26/2016 Blood Pressure 1: 138/72 Code: 8480-6 BMI: 30.0 Code: 82884-3 Heart Rate 1: 85 bpm Height: 5'6" SpO2: 97% Weight: 186 lbs 05/30/2016 Blood Pressure 1: 132/76 Code: 8480-6 BMI: 30.0 Code: 80786-5 Heart Rate 1: 80 bpm Height: 5'6" SpO2: 98% Waist Measure (cm): 99 cm Weight: 186 lbs 05/25/2016 Blood Pressure 1: 132/76 Code: 8480-6 BMI: 30.0 Code: 10320-8 Heart Rate 1: 80 bpm Height: 5'6" SpO2: 96% Weight: 186 lbs 02/25/2016 Blood Pressure 1: 110/64 Code: 8480-6 Heart Rate 1: 82 bpm Height: SpO2: 96% Weight: 01/25/2016 Blood Pressure 1: 118/70 Code: 8480-6 BMI: 30.0 Code: 96252-3 Heart Rate 1: 78 bpm Height: 5'6" SpO2: 97% Weight: 186 lbs 11/11/2015 Blood Pressure 1: 128/82 Code: 8480-6 BMI: 29.2 Code: 62054-6 Heart Rate 1: 86 bpm Height: 5'6" SpO2: 96% Temperature: 36.4 (C) / 97.6 (F) Weight: 181 lbs 10/12/2015 Blood Pressure 1: 118/70 Code: 8480-6 BMI: 29.2 Code: 25564-9 Heart Rate 1: 81 bpm Height: 5'6" SpO2: 95% Weight: 181 lbs 09/03/2015 Blood Pressure 1: 138/78 Code: 8480-6 BMI: 29.9 Code: 65443-7 Heart Rate 1: 88 bpm Height: 5'6" SpO2: 97% Weight: 185 lbs 05/19/2015 Blood Pressure 1: 146/78 Code: 8480-6 BMI: 30.0 Code: 84969-6 Heart Rate 1: 66 bpm Height: 5'6" SpO2: 97% Weight: 186 lbs 05/12/2015 Blood Pressure 1: 120/70 Code: 8480-6 BMI: 29.9 Code: 66086-0 Heart Rate 1: 89 bpm Height: 5'6" SpO2: 95% Weight: 185 lbs 01/13/2015 Blood Pressure 1: 140/90 Code: 8480-6 BMI: 30.3 Code: 21833-0 Heart Rate 1: 84 bpm Height: 5'6" SpO2: 95% Weight: 188 lbs 12/16/2014 Blood Pressure 1: 140/82 Code: 8480-6 BMI: 29.5 Code: 56710-0 Heart Rate 1: 86 bpm Height: 5'6" [...] data Encounters Encounter Performer Location Codes Date ([id number]) [id number] EST. PATIENT, LEVEL IV Diagnosis: Essential (primary) hypertension[ICD10: I10] Diagnosis: Type 2 diabetes mellitus without complications[ICD10: E11.9] Yarely Vega MD, [facility] CPT-4: 49902 05/03/2018 ([id number]) 17226 EST. PATIENT, LEVEL III Diagnosis: Pain in left shoulder[ICD10: M25.512] Diagnosis: Pain in right shoulder[ICD10: M25.511] Yarely Vega MD, [facility] CPT-4: 73429 02/26/2018 ([id number]) 85906 EST. PATIENT, LEVEL III Diagnosis: Nausea[ICD10: R11.0] Diagnosis: Cough[ICD10: R05] Diagnosis: 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 factor deficiency[ICD10: D51.0] Janet Vega MD, [facility] CPT-4: 89888 12/12/2017 ([id number]) 11906 EST. PATIENT, LEVEL IV Diagnosis: Acute bronchitis due to Hemophilus influenzae[ICD10: J20.1] Diagnosis: Cough[ICD10: R05] Yarely Vega MD, [facility] CPT-4: 85279 12/04/2017 ([id number]) 05865 EST. PATIENT, LEVEL IV Diagnosis: Essential (primary) hypertension[ICD10: I10] Diagnosis: Cough[ICD10: R05] Diagnosis: Chronic atrial fibrillation[ICD10: I48.2] Yarely Vega MD, [facility] CPT-4: 18861 11/20/2017 ([id number]) 41309 EST. PATIENT, LEVEL III Diagnosis: Cough[ICD10: R05] Diagnosis: Acute upper respiratory infection, unspecified[ICD10: J06.9] Janet Vega MD, [facility] CPT-4: 97092 09/15/2017 [id number] EST. PATIENT, LEVEL III Diagnosis: Laceration without foreign body of right forearm, initial encounter[ICD10: S51.811A] Diagnosis: Other vitamin B12 deficiency anemias[ICD10: D51.8] Brianna Vega MD, [facility] CPT-4: 67555 09/07/2017 ([id number]) 78402 EST. PATIENT, LEVEL IV Diagnosis: Chronic atrial fibrillation[ICD10: I48.2] Diagnosis: Other allergic rhinitis[ICD10: J30.89] Diagnosis: Encounter for therapeutic drug level monitoring[ICD10: Z51.81] Yarely Vega MD, [facility] CPT-4: 71073 08/30/2017 ([id number]) 48970 EST. PATIENT, LEVEL IV Diagnosis: Atrophy of thyroid (acquired)[ICD10: E03.4] Diagnosis: Cough[ICD10: R05] Diagnosis: Laceration without foreign body of left forearm, initial encounter[ICD10: S51.812A] Diagnosis: Candidiasis of skin and nail[ICD10: B37.2] Diagnosis: Other vitamin B12 deficiency anemias[ICD10: D51.8] Diagnosis: Slow transit constipation[ICD10: K59.01] Yarely Vega MD, [facility] CPT-4: 09255 07/06/2017 [id number] EST. PATIENT, LEVEL III Diagnosis: Other vitamin B12 deficiency anemias[ICD10: D51.8] Diagnosis: Acute laryngopharyngitis[ICD10: J06.0] Diagnosis: Other allergic rhinitis[ICD10: J30.89] Brianna Vega MD, [facility] CPT- 4: 36698 06/20/2017 ([id number]) 40248 EST. PATIENT, LEVEL IV Diagnosis: Essential (primary) hypertension[ICD10: I10] Diagnosis: Chronic atrial fibrillation[ICD10: I48.2] Diagnosis: Atrophy of thyroid (acquired)[ICD10: E03.4] Diagnosis: 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 factor deficiency[ICD10: D51.0] Yarely Vega MD, [facility] CPT-4: 97226 05/25/2017 ([id number]) 87464 EST. 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 PATIENT, LEVEL IV Diagnosis: Type 2 diabetes mellitus without complications[ICD10: E11.9] Diagnosis: Essential (primary) hypertension[ICD10: I10] Diagnosis: Headache[ICD10: R51] Diagnosis: Atrophy of thyroid (acquired)[ICD10: E03.4] Diagnosis: Vitamin B12 deficiency anemia, unspecified[ICD10: D51.9] Yarely Vega MD, [facility] CPT-4: 65938 01/23/2017 [id number] EST. PATIENT, LEVEL III Diagnosis: Low back pain[ICD10: M54.5] Diagnosis: Pain in thoracic spine[ICD10: M54.6] Brianna Vega MD, [facility] CPT- 4: 76200 11/02/2016 ([id number]) 60547 EST. PATIENT, LEVEL IV Diagnosis: Essential (primary) hypertension[ICD10: I10] Diagnosis: Other vitamin B12 deficiency anemias[ICD10: D51.8] Diagnosis: Generalized abdominal pain[ICD10: R10.84] Yarely Vega MD, [facility] CPT-4: 14273 09/29/2016 ([id number]) 86427 EST. PATIENT, LEVEL IV Diagnosis: Essential (primary) hypertension[ICD10: I10] Yarely Vega MD, [facility] CPT-4: 38656 07/26/2016 ([id number]) 39586 EST. PATIENT, LEVEL IV Diagnosis: Benign lipomatous neoplasm of skin and subcutaneous tissue of right leg[ICD10: D17.23] Diagnosis: Pain in right ankle and joints of right foot[ICD10: M25.571] Diagnosis: Encounter for immunization[ICD10: Z23] Diagnosis: Vitamin B12 deficiency anemia, unspecified[ICD10: D51.9] Yarely Vega MD, [facility] CPT-4: 84664 05/25/2016 23001 EST. PATIENT, LEVEL III Diagnosis: Other chest pain[ICD10: R07.89] Diagnosis: Other vitamin B12 deficiency anemias[ICD10: D51.8] Brianna Vega MD, [facility] CPT-4: 67203 02/25/2016 ([id number]) 92975 EST. 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 PATIENT, LEVEL III Diagnosis: Other vitamin B12 deficiency anemias[ICD10: D51.8] Diagnosis: Acute nasopharyngitis [common cold][ICD10: J00] Diagnosis: Other allergic rhinitis[ICD10: J30.89] Brianna Vega MD, [facility] CPT- 4: 99569 11/11/2015 ([id number]) 92834 EST. PATIENT, LEVEL IV Diagnosis: Essential tremor[ICD10: G25.0] Diagnosis: Chronic fatigue, unspecified[ICD10: R53.82] Diagnosis: Other hypersomnia[ICD10: G47.19] Diagnosis: Essential (primary) hypertension[ICD10: I10] Yarely Vega MD, [facility] CPT-4: 75871 10/12/2015 ([id number]) 78679 EST. PATIENT, LEVEL IV Diagnosis: Essential (primary) hypertension[ICD10: I10] Diagnosis: Chronic atrial fibrillation[ICD10: I48.2] Diagnosis: Abnormal levels of other serum enzymes[ICD10: R74.8] Diagnosis: Type 2 diabetes mellitus without complications[ICD10: E11.9] Diagnosis: Vitamin B12 deficiency anemia, unspecified[ICD10: D51.9] Yarely Vega MD, [facility] CPT-4: 07170 09/03/2015 ([id number]) 91099 EST. PATIENT, LEVEL III Diagnosis: Nausea[ICD10: R11.0] Diagnosis: Essential tremor[ICD10: G25.0] Diagnosis: Actinic keratosis[ICD10: L57.0] Yarely Vega MD, [facility] CPT-4: 68437 05/19/2015 ([id number]) 57067 EST. PATIENT, LEVEL IV Diagnosis: Vitamin B12 deficiency anemia, unspecified[ICD10: D51.9] Diagnosis: Chronic atrial fibrillation[ICD10: I48.2] Diagnosis: Headache[ICD10: R51] Diagnosis: Chronic fatigue, unspecified[ICD10: R53.82] Diagnosis: Cervicalgia[ICD10: M54.2] [facility] CPT-4: 97503 05/12/2015 ([id number]) 77513 EST. PATIENT, LEVEL IV Diagnosis: ESSENTIAL HYPERTENSION[ICD9: 401.9] Diagnosis: Afib[ICD9: 427.31] Diagnosis: Anxiety[ICD9: 300.00] Diagnosis: Insomnia[ICD9: 780.52] Yarely Vega MD, [facility] CPT-4: 24057 01/13/2015 ([id number]) OFFICE VISIT, NEW - LEVEL 4 Diagnosis: Hypothyroidism[ICD9: 244.9] Diagnosis: DIABETES TYPE II[ICD9: 250.00] Diagnosis: ESSENTIAL HYPERTENSION[ICD9: 401.9] Diagnosis: Afib[ICD9: 427.31] Diagnosis: Anxiety[ICD9: 300.00] Diagnosis: B12 deficiency[ICD9: 266.2] [facility] CPT-4: 86512 12/16/2014 Plan of Care Planned Activity Notes Codes Status Date Appointment: Injection 05/24/2018 Patient Education: Patient Medication [...] restart flonase 05/03/2018 Appointment: Yarely Vega W[place]el[place] [facility] [place] [facility] [place] [facility] (15 min) Moderate 05/03/2018 Patient Education: [...] intervention. 02/26/2018 Appointment: Yarely Vega WPtel: [phone] [facility] [place] (15 min) Moderate 02/26/2018 Patient Education: Patient Medication Summary Completed 02/26/2018 Care Plan: Referral Order SNOMED-CT : [id number] Pending 02/26/2018 Appointment: Injection 02/08/2018 Patient Education: Patient Medication Summary Completed 02/08/2018 Appointment: Injection 01/24/2018 Patient Education: Patient Medication Summary Completed 01/24/2018 Appointment: Injection 01/10/2018 Patient Education: Patient Medication Summary Completed 01/10/2018 Appointment: Injection 12/27/2017 Patient Education: Patient Medication Summary Completed 12/27/2017 Appointment: Yarely Vega WPtel: [facility] [place] [facility] [facility] [place] (15 min) Moderate 12/26/2017 Visit Plan: Dmixlo-jprcdyrdp-oaywzoyo protonix-follow up with Dr Navarro as scheduled Cough-recent bronchitis-symptoms improved-call if symptoms do not completely resolve 12/12/2017 Appointment: Janet Fam WPtel: [phone] [phone] [place] (15 min) Moderate 12/12/2017 [...] medication. 12/04/2017 Appointment: Yarely Vega WPtel: [phone] [facility] (15 min) Moderate 12/04/2017 Patient Education: Patient [...] -Pt was advsied to ask the [facility] [employer] the following: ask the heart doctor [...] uncontrolled. 11/20/2017 Appointment: Yarely Vega WPtel: [phone] [facility] (15 min) Moderate 11/20/2017 Patient Education: Patient [...] any worse. 09/15/2017 Appointment: Janet Fam WPtel: [phone] [phone] [place] (15 min) Moderate 09/15/2017 Patient Education: Patient Medication Summary Completed 09/15/2017 Appointment: Yarely Vega WPtel: [facility] [place] [facility] [facility] [place] (15 min) Moderate 09/11/2017 Visit Plan: Skin tear and Cellulitis - The patient was instructed in appropriate wound care. The patient was instructed to use the antibiotic ointment as per RX. The patient is to call for any change in symptoms, increase in size of the lesion, increase in pain, worsening redness, warmth, discharge. 09/07/2017 Appointment: [phone] [facility] [place] (10 min) Simple 09/07/2017 Patient Education: Patient Medication Summary Completed 09/07/2017 Visit Plan: Lipoma - left ankle - talk to dr. barnes about possible surgery/laser for treatment of lipoma. Fatigue/malaise -Pt was advsied to ask the [facility] [employer] the following: ask the heart doctor if there is an alternative to the amiodarone - you may be having side effects from the medication causing you to have pruritus (itching) and feeling like you have body aches, muscle aches, joint pain, fatigue, weight loss (decreased appetite), and pneumonia like symptoms. Congestion - claritin 10mg daily. 08/30/2017 Appointment: Yarely Vega WPtel: [facility] [place] [facility] [place] [facility] [place] (15 min) Moderate 08/30/2017 Patient Education: Patient Medication Summary Completed 08/30/2017 Appointment: Injection 08/24/2017 Appointment: Yarely Vega WPtel: [facility] [place] [facility] [place] [facility] [place] (15 min) Moderate 08/24/2017 [...] mucinex 07/06/2017 Appointment: Yarely Vega WPtel: [phone] [facility] (15 min) Moderate 07/06/2017 Patient Education: Patient [...] spray. 06/20/2017 Appointment: Brianna Otoole WPtel: [phone] [facility] (15 min) Moderate 06/20/2017 Patient Education: [...] Injection 06/05/2017 Appointment: [facility]toole [facility]el: [phone] [facility] [place] - Annual Wellness Visit 06/05/2017 Patient Education: [...] control. 05/25/2017 Appointment: [facility]el[phone] (15 min) Moderate 05/25/2017 Patient [...] Fatigue - pt to discuss with [employer] about the possibility of amiodarone causing her fatigue/malaise. 03/23/2017 Appointment: Yarely Vega WPtel: [phone] [facility] (15 min) Moderate 03/23/2017 Patient Education: [...] daily. 01/23/2017 Appointment: Yarely Vega WPtel: [phone] [facility] (15 min) Moderate 01/23/2017 Patient [...] improve. 11/02/2016 Appointment: Brianna Otoole [facility]Ptel: [phone] [place] (15 min) Moderate 11/02/2016 Patient [...] carafate 09/29/2016 Appointment: Yarely Vega WPtel: [phone] [facility] [place] (15 min) Moderate 09/29/2016 Patient Education: Patient Medication Summary Completed 09/29/2016 Appointment: Yarely Vega WPtel: [phone] [facility] [place] (15 min) Moderate 09/27/2016 Appointment: Yarely Vega WPtel: [phone] [facility] [place] (15 min) Moderate 09/20/2016 Appointment: Yarely Vega WPtel: [phone] [facility] [place] (15 min) Moderate 09/20/2016 Patient Education: Patient Medication Summary Completed 09/06/2016 Appointment: Yarely Vega WPtel: [facility] [place] [facility] [place] [facility] [place] (15 min) Moderate 08/30/2016 Appointment: Injection [...] concerns. 07/26/2016 Appointment: Yarely Vega WPtel: [phone] [facility] (15 min) Moderate 07/26/2016 Patient [...] 05/30/2016 Appointment: Brianna Otoole WPtel: [phone] [facility] [facility] [place] - Annual Wellness Visit 05/30/2016 Patient Education: [...] bedtime 05/25/2016 Appointment: Yarely Vega WPtel: [phone] [facility] (15 min) Moderate 05/25/2016 Patient Education: Patient Medication Summary Completed 05/25/2016 Patient Education: Obesity Completed 05/25/2016 Care Plan: Referral Order SNOMED-CT : [id number] Pending 05/25/2016 Appointment: Injection 05/10/2016 Patient Education: Patient Medication Summary Completed 05/10/2016 Appointment: Injection 04/26/2016 Patient Education: Patient Medication Summary Completed 04/26/2016 Appointment: Injection 04/11/2016 Patient Education: Patient Medication Summary Completed 04/11/2016 Appointment: Injection 03/31/2016 Patient Education: Patient Medication Summary Completed 03/31/2016 Patient Education: Patient Medication Summary Completed 03/22/2016 Care Plan: SCREENINGMAMMOGRAPHYDIGITAL LOINC : 55664-5 Pending 03/22/2016 Appointment: Injection 03/15/2016 Patient Education: [...] any concerns. 02/25/2016 Appointment: Xiang Brianna WPtel: [facility] [place] [facility] [place] [facility] [place] (15 min) Moderate 02/25/2016 Patient [...] the patients recent sleep study - recommended [facility] home patient eval of pt - nocturnal [...] the patients recent sleep study - recommended [place] home patient eval of pt - nocturnal [...] later. 10/12/2015 Appointment: Yarely Vega WPtel: [phone] [facility] (15 min) Moderate 10/12/2015 Patient [...] Completed 08/17/2015 Appointment: Yarely Vega WPtel: [phone] [facility] (15 min) Moderate 08/11/2015 Appointment: [...] x 2 05/19/2015 Appointment: Yarely Vega WPtel: [facility] [place] [facility] [place] [facility] (30 min) Complex 05/19/2015 Patient [...] alprazolam. 01/13/2015 Appointment: Yarely Vega WPtel: [phone] [facility] [place] (15 min) Moderate 01/13/2015 Patient [...] medications. 12/16/2014 Appointment: Janet F[facility] WPtel: [phone] [place] ([place]) New Patient 12/16/2014 Patient [...] Cat Referral Appointment Requested Instructions Comment . Low back pain- ongoing - will [...] DOPA paperwork for health care surrogate. . Tjqepq-afohfhtwj-binvsuvv protonix-follow up with Dr Navarro as scheduled [...] -Pt was advsied to ask the [employer] the following: ask the heart doctor [...] pt is to call for acute concerns. use dry eye drops in the morning [...] -Pt was advsied to ask the [employer] the following: ask the heart doctor [...] Fatigue - pt to discuss with [employer] about the possibility of amiodarone causing [...] the patients recent sleep study - recommended [place] home patient eval of pt - nocturnal [...] the patients recent sleep study - recommended [place] home patient eval of pt - nocturnal [...] control. headaches - take topamax at bedtime liquid or dissolving B12 - 2000 units [...]
--- OUTSIDE RECORDS SUMMARY | 2018-12-05 19:42 | XMS REPORT | CCD ---
Author Author [facility] Organization [facility] Address [address] [place] [address] Phone Care Team Providers Care Scrum Coach Name Role Phone PP Unavailable CCM Unavailable Summary Purpose Interface Exchange Insurance Providers Payer name Policy type / Coverage type Covered republican ID Effective Begin Date Effective End Date WPS Medicare Part B Medicare Part B [id number] Unknown Principal Life Insurance Medicare Part B [id number] Unknown Family history Brother Diagnosis Age At Onset Heart Attack Unknown Mother Diagnosis Age At Onset Hypertension Unknown kidney disease Unknown Stroke Unknown Father Diagnosis Age At Onset Arthritis Unknown Social History Social History Element Codes Description Effective Dates Employment Unknown Retired worked at [employer] 11/20/2017 Marital status Unknown Single 12/16/[address]: 5555360 Former smoker 12/16/[address]: 544462146 Never drinks alcohol 12/16/2014 Allergies, Adverse Reactions, Alerts Substance Reaction Codes Entered Date Inactivated Date Status CODEINE RxNorm: 2670 05/25/2016 No Inactive Date Active ciprofloxacin RxNorm: 72323 12/16/2014 No Inactive Date Active MORPHINE SULFATE [...] hydrocodone 5 mg-acetaminophen 325 mg tablet RxNorm: 192133 1-2 Tablet(s) PO Q6 as needed for pain 05/24/2018 06/22/2018 Active cyanocobalamin (vit B-12) 1,000 mcg/mL injection solution RxNorm: 553217 Milliliter(s) Inj 05/24/2018 05/24/2018 Inactive cyanocobalamin (vit B-12) 1,000 mcg/mL injection solution RxNorm: 696028 Milliliter(s) Inj 05/09/2018 05/09/2018 Inactive Claritin 10 mg tablet RxNorm: 317909 TAKE 1 TABLET BY MOUTH ONCE DAILY 05/08/2018 05/02/2019 Active Generic For:CLARITIN 10MG 05/07/2018 9:13:47 AM cyanocobalamin (vit B-12) 1,000 mcg/mL injection solution RxNorm: 514035 INJECT ONE 1 ML EVERY TWO WEEKS 05/03/2018 04/03/2019 Active 05/03/2018 9:13:42 AM Mobic 15 mg tablet RxNorm: 446562 Tablet(s) 1 Tablet(s) PO daily 04/26/2018 04/20/2019 Active buspirone 15 mg tablet RxNorm: 301884 Tablet(s) TAKE 1 TABLET BY MOUTH TWICE DAILY 04/26/2018 04/20/2019 Active Generic For:BUSPAR 15MG 05/31/2017 9:19:20 AM Norvasc 5 mg tablet RxNorm: 239397 Tablet(s) 1 Tablet(s) PO daily 04/26/2018 04/20/2019 Active cyanocobalamin (vit B-12) 1,000 mcg/mL injection solution RxNorm: 051119 Milliliter(s) Inj 04/26/2018 04/26/2018 Inactive hydrocodone 5 mg-acetaminophen 325 mg tablet RxNorm: 163778 1-2 Tablet(s) PO Q6 as needed for pain 04/25/2018 05/23/2018 Inactive cyanocobalamin (vit B-12) 1,000 mcg/mL injection solution RxNorm: 019829 Milliliter(s) Inj 04/12/2018 04/12/2018 Inactive Topamax 25 mg tablet RxNorm: 235244 1 Tablet(s) PO BID 04/09/2018 05/02/2018 Inactive Generic For:TOPAMAX 25MG 12/06/2016 9:15:13 AM Zoloft 50 mg tablet RxNorm: 870462 TAKE 1 TABLET BY MOUTH ONCE DAILY 04/04/2018 12/29/2018 Active Generic For:ZOLOFT 50MG 04/04/2018 9:13:25 AM cyanocobalamin (vit B-12) 1,000 mcg/mL injection solution RxNorm: 375027 Milliliter(s) Inj 03/30/2018 03/30/2018 Inactive levothyroxine 125 mcg tablet RxNorm: 821163 TAKE 1 TABLET BY MOUTH EVERY DAY 03/26/2018 09/21/2018 Active Generic For:SYNTHROID 125MCG TAB 03/26/2018 9:15:59 AM liothyronine 5 mcg tablet RxNorm: 662789 TAKE 1 TABLET BY MOUTH TWICE DAILY 03/26/2018 09/21/2018 Active Generic For:CYTOMEL 5MCG 03/26/2018 9:15:54 AM hydrocodone 5 mg-acetaminophen 325 mg tablet RxNorm: 555263 1-2 Tablet(s) PO Q6 as needed for pain 03/19/2018 04/17/2018 Inactive cyanocobalamin (vit B-12) 1,000 mcg/mL injection solution RxNorm: 724062 Milliliter(s) Inj 03/16/2018 03/16/2018 Inactive Flonase Allergy Relief 50 mcg/actuation nasal spray,suspension RxNorm: 8634598 1 [place] NASAL BID 03/05/2018 07/02/2018 Active cyanocobalamin (vit B-12) 1,000 mcg/mL injection solution RxNorm: 986277 Milliliter(s) Inj 03/02/2018 03/02/2018 Inactive alprazolam 0.25 mg tablet RxNorm: 795079 1 Tablet(s) PO BID 02/28/2018 05/28/2018 Active cyanocobalamin (vit B-12) 1,000 mcg/mL injection solution RxNorm: 587704 Milliliter(s) Inj 02/08/2018 02/08/2018 Inactive cyanocobalamin (vit B-12) 1,000 mcg/mL injection solution RxNorm: 233640 Milliliter(s) Inj 01/24/2018 01/24/2018 Inactive albuterol sulfate 2.5 mg/3 mL (0.083 %) solution for nebulization RxNorm: 231084 3 Milliliter(s) INH Q6 PRN 01/24/2018 05/02/2018 Inactive Claritin 10 mg tablet RxNorm: 430563 1 Tablet(s) PO daily 01/15/2018 05/07/2018 Inactive cyanocobalamin (vit B-12) 1,000 mcg/mL injection solution RxNorm: 289218 Milliliter(s) Inj 01/10/2018 01/10/2018 Inactive hydrocodone 5 mg-acetaminophen 325 mg tablet RxNorm: 572690 1-2 Tablet(s) PO Q6 as needed for pain 01/09/2018 02/07/2018 Inactive cyanocobalamin (vit B-12) 1,000 mcg/mL injection solution RxNorm: 438090 Milliliter(s) Inj 12/27/2017 12/27/2017 Inactive cyanocobalamin (vit B-12) 1,000 mcg/mL injection solution RxNorm: 189605 1 Milliliter(s) Inj 12/12/2017 12/12/2017 Inactive Zofran ODT 4 mg disintegrating tablet RxNorm: 660520 1 Tablet(s) PO TID as needed 12/08/2017 12/09/2017 Inactive hydrocodone 2.5 mg-guaifenesin 200 mg/5 mL oral solution RxNorm: 682911 5 Milliliter(s) PO 12/04/2017 05/06/2018 Inactive doxycycline hyclate 100 mg capsule RxNorm: 3945795 1 Capsule(s) PO BID 12/04/2017 12/13/2017 Inactive cyanocobalamin (vit B-12) 1,000 mcg/mL injection solution RxNorm: 168407 Milliliter(s) Inj 12/01/2017 12/01/2017 Inactive Flonase Allergy Relief 50 mcg/actuation nasal spray,suspension RxNorm: 9213616 1 [place] NASAL BID 11/20/2017 2018 Inactive cyanocobalamin (vit B-12) 1,000 mcg/mL injection solution RxNorm: 367567 1 Milliliter(s) Inj 11/17/2017 11/17/2017 Inactive hydrocodone 5 mg-acetaminophen 325 mg tablet RxNorm: 882445 1-2 Tablet(s) PO Q6 as needed for pain 11/16/2017 12/15/2017 Inactive cyanocobalamin (vit B-12) 1,000 mcg/mL injection solution RxNorm: 965805 1 Milliliter(s) Inj 11/02/2017 11/02/2017 Inactive hydrocodone 5 mg-acetaminophen 325 mg tablet RxNorm: 898236 1-2 Tablet(s) PO Q6 as needed for pain 10/25/2017 11/15/2017 Inactive Claritin 10 mg tablet RxNorm: 798299 1 Tablet(s) PO daily 10/25/2017 11/19/2017 Inactive albuterol sulfate 2.5 mg/3 mL (0.083 %) solution for nebulization RxNorm: 462454 3 Milliliter(s) INH Q6 PRN 10/25/2017 01/23/2018 Inactive Claritin 10 mg tablet RxNorm: 992050 1 Tablet(s) PO daily 10/25/2017 10/24/2017 Inactive cyanocobalamin (vit B-12) 1,000 mcg/mL injection solution RxNorm: 438983 1 Milliliter(s) Inj 10/20/2017 10/20/2017 Inactive Zoloft 50 mg tablet RxNorm: 850860 TAKE 1 TABLET BY MOUTH ONCE DAILY 10/13/2017 04/03/2018 Inactive Generic For:ZOLOFT 50MG 10/13/2017 8:59:44 AM cyanocobalamin (vit B-12) 1,000 mcg/mL injection solution RxNorm: 828788 Milliliter(s) Inj 10/06/2017 10/06/2017 Inactive liothyronine 5 mcg tablet RxNorm: 570127 TAKE 1 TABLET BY MOUTH TWICE DAILY 10/03/2017 03/25/2018 Inactive Generic For:CYTOMEL 5MCG 10/03/2017 9:13:38 AM cyanocobalamin (vit B-12) 1,000 mcg/mL injection solution RxNorm: 172392 Milliliter(s) Inj 09/21/2017 09/21/2017 Inactive albuterol sulfate 2.5 mg/3 mL (0.083 %) solution for nebulization RxNorm: 930214 3 Milliliter(s) INH Q6 PRN 09/21/2017 10/24/2017 Inactive hydrocodone 5 mg-acetaminophen 325 mg tablet RxNorm: 035047 1-2 Tablet(s) PO Q6 as needed for pain 09/21/2017 10/20/2017 Inactive Kenalog 40 mg/mL suspension for injection RxNorm: 4252523 Milliliter(s) Inj 09/15/2017 09/15/2017 Inactive Keflex 500 mg capsule RxNorm: 188065 1 Capsule(s) PO TID 09/07/2017 09/16/2017 Inactive Please deliver to patient cyanocobalamin (vit B-12) 1,000 mcg/mL injection solution RxNorm: 006696 Milliliter(s) Inj 09/07/2017 09/07/2017 Inactive Aricept 10 mg tablet RxNorm: 973241 1 Tablet(s) PO daily 09/06/2017 08/31/2018 Active alprazolam 0.25 mg tablet RxNorm: 413453 1 Tablet(s) PO BID 09/06/2017 02/27/2018 Inactive hydrocodone 5 mg-acetaminophen 325 mg tablet RxNorm: 734511 1-2 Tablet(s) PO Q6 as needed for pain 08/24/2017 09/20/2017 Inactive cyanocobalamin (vit B-12) 1,000 mcg/mL injection solution RxNorm: 951352 Milliliter(s) Inj 08/24/2017 08/24/2017 Inactive Norvasc 5 mg tablet RxNorm: 967886 1 Tablet(s) PO daily 08/18/2017 04/25/2018 Inactive nystatin 100,000 unit/gram topical powder RxNorm: 096779 1 Gram(s) TOP QID 08/17/2017 08/26/2017 Inactive hydrocodone 5 mg-acetaminophen 325 mg tablet RxNorm: 853608 1-2 Tablet(s) PO Q6 as needed for pain 07/25/2017 08/23/2017 Inactive Tamiflu 75 mg capsule RxNorm: 896012 1 Capsule(s) PO BID 07/24/2017 12/11/2017 Inactive nystatin 100,000 unit/gram topical powder RxNorm: 558322 1 Gram(s) TOP QID 07/14/2017 07/22/2017 Inactive levothyroxine 125 mcg tablet RxNorm: 136599 Tablet(s) 1 Tablet(s) PO daily 07/10/2017 01/05/2018 Inactive nystatin 100,000 unit/gram topical powder RxNorm: 050039 1 Gram(s) TOP QID 07/06/2017 07/13/2017 Inactive cyanocobalamin (vit B-12) 1,000 mcg/mL injection solution RxNorm: 210706 Milliliter(s) Inj 07/06/2017 07/06/2017 Inactive Kenalog 40 mg/mL suspension for injection RxNorm: 9820641 1 Milliliter(s) Inj 06/20/2017 06/20/2017 Inactive doxycycline hyclate 100 mg capsule RxNorm: 7551647 1 Capsule(s) PO BID 06/20/2017 06/26/2017 Inactive cyanocobalamin (vit B-12) 1,000 mcg/mL injection solution RxNorm: 755783 Milliliter(s) Inj 06/20/2017 06/20/2017 Inactive Keflex 500 mg capsule RxNorm: 341568 1 Capsule(s) PO TID 06/14/2017 06/23/2017 Inactive Please deliver to patient Mobic 15 mg tablet RxNorm: 962975 1 Tablet(s) PO daily 06/14/2017 04/25/2018 Inactive cyanocobalamin (vit B-12) 1,000 mcg/mL injection solution RxNorm: 398571 Milliliter(s) Inj 06/05/2017 06/05/2017 Inactive buspirone 15 mg tablet RxNorm: 789440 TAKE 1 TABLET BY MOUTH TWICE DAILY 05/31/2017 04/25/2018 Inactive Generic For:BUSPAR 15MG 05/31/2017 9:19:20 AM cyanocobalamin (vit B-12) 1,000 mcg/mL injection solution RxNorm: 975694 Milliliter(s) Inj 05/25/2017 05/25/2017 Inactive hydrocodone 5 mg-acetaminophen 325 mg tablet RxNorm: 312931 1-2 Tablet(s) PO Q6 as needed for pain 05/25/2017 06/23/2017 Inactive amiodarone 200 mg tablet RxNorm: 399095 1/2 Tablet(s) PO daily 05/22/2017 No Stop Date Active cardiology decreased to 100mg daily cyanocobalamin (vit B-12) 1,000 mcg/mL injection solution RxNorm: 263819 Milliliter(s) Inj 05/16/2017 05/16/2017 Inactive Zofran ODT 4 mg disintegrating tablet RxNorm: 821535 1 Tablet(s) PO TID as needed 05/03/2017 05/04/2017 Inactive hydrocodone 5 mg-acetaminophen 325 mg tablet RxNorm: 881234 1-2 Tablet(s) PO Q6 as needed for pain 05/01/2017 05/05/2017 Inactive cyanocobalamin (vit B-12) 1,000 mcg/mL injection solution RxNorm: 605258 1 Milliliter(s) Inj 05/01/2017 05/01/2017 Inactive cyanocobalamin (vit B-12) 1,000 mcg/mL injection solution RxNorm: 256311 INJECT ONE 1 ML EVERY TWO WEEKS 04/26/2017 12/04/2018 Active 04/26/2017 9:08:52 AM Zoloft 50 mg tablet RxNorm: 720753 Tablet(s) TAKE 1 TABLET BY MOUTH DAILY 04/25/2017 10/12/2017 Inactive Generic For:ZOLOFT 50MG cyanocobalamin (vit B-12) 1,000 mcg/mL injection solution RxNorm: 003838 Milliliter(s) Inj 04/18/2017 04/18/2017 Inactive liothyronine 5 mcg tablet RxNorm: 315821 1 Tablet(s) PO BID 04/13/2017 10/02/2017 Inactive cyanocobalamin (vit B-12) 1,000 mcg/mL injection solution RxNorm: 795509 Milliliter(s) Inj 04/06/2017 04/06/2017 Inactive hydrocodone 5 mg-acetaminophen 325 mg tablet RxNorm: 349184 1-2 Tablet(s) PO Q6 as needed for pain 04/06/2017 04/10/2017 Inactive cyanocobalamin (vit B-12) 1,000 mcg/mL injection solution RxNorm: 007325 Milliliter(s) Inj 03/22/2017 03/22/2017 Inactive alprazolam 0.25 mg tablet RxNorm: 422728 1 Tablet(s) PO BID 03/17/2017 12/11/2017 Inactive alprazolam 0.25 mg tablet RxNorm: 574814 1 Tablet(s) PO BID 03/16/2017 09/05/2017 Inactive hydrocodone 5 mg-acetaminophen 325 mg tablet RxNorm: 048977 1-2 Tablet(s) PO Q6 as needed for pain 03/09/2017 03/13/2017 Inactive cyanocobalamin (vit B-12) 1,000 mcg/mL injection solution RxNorm: 750426 Milliliter(s) Inj 03/09/2017 03/09/2017 Inactive cyanocobalamin (vit B-12) 1,000 mcg/mL injection solution RxNorm: 965219 Milliliter(s) Inj 02/23/2017 02/23/2017 Inactive cyanocobalamin (vit B-12) 1,000 mcg/mL injection solution RxNorm: 152593 Milliliter(s) Inj 02/09/2017 02/09/2017 Inactive hydrocodone 5 mg-acetaminophen 325 mg tablet RxNorm: 455193 1-2 Tablet(s) PO Q6 as needed for pain 02/08/2017 02/12/2017 Inactive Topamax 25 mg tablet RxNorm: 764496 1 Tablet(s) PO BID 01/23/2017 05/22/2017 Inactive Generic For:TOPAMAX 25MG 12/06/2016 9:15:13 AM cyanocobalamin (vit B-12) 1,000 mcg/mL injection solution RxNorm: 764762 Milliliter(s) Inj 01/23/2017 01/23/2017 Inactive cyanocobalamin (vit B-12) 1,000 mcg/mL injection solution RxNorm: 963885 Milliliter(s) Inj 01/10/2017 01/10/2017 Inactive hydrocodone 5 mg-acetaminophen 325 mg tablet RxNorm: 317113 1-2 Tablet(s) PO Q6 as needed for pain 01/09/2017 01/13/2017 Inactive cyanocobalamin (vit B-12) 1,000 mcg/mL injection solution RxNorm: 060748 1 Milliliter(s) Inj 12/28/2016 12/28/2016 Inactive cyanocobalamin (vit B-12) 1,000 mcg/mL injection solution RxNorm: 156725 Milliliter(s) Inj 12/14/2016 12/14/2016 Inactive buspirone 15 mg tablet RxNorm: 727547 1 Tablet(s) PO BID 12/12/2016 05/30/2017 Inactive hydrocodone 5 mg-acetaminophen 325 mg tablet RxNorm: 852988 1-2 Tablet(s) PO Q6 as needed for pain 12/08/2016 12/12/2016 Inactive Topamax 25 mg tablet RxNorm: 255862 TAKE 1 TABLET BY MOUTH EVERY DAY AT BEDTIME 12/06/2016 01/22/2017 Inactive Generic For:TOPAMAX 25MG 12/06/2016 9:15:13 AM Lac-Hydrin Five 5 % lotion RxNorm: 595074 1 Gram(s) TOP daily 12/02/2016 05/02/2018 Inactive cyanocobalamin (vit B-12) 1,000 mcg/mL injection solution RxNorm: 323758 Milliliter(s) Inj 11/24/2016 11/24/2016 Inactive Ceftin 500 mg tablet RxNorm: 683479 1 Tablet(s) PO BID 11/11/2016 06/13/2017 Inactive Cipro 500 mg tablet RxNorm: 172703 1 Tablet(s) PO BID 11/11/2016 11/10/2016 Inactive Cipro 500 mg tablet RxNorm: 389403 1 Tablet(s) PO BID 11/11/2016 11/11/2016 Inactive cyanocobalamin (vit B-12) 1,000 mcg/mL injection solution RxNorm: 762066 1 Milliliter(s) Inj 11/07/2016 11/07/2016 Inactive hydrocodone 5 mg-acetaminophen 325 mg tablet RxNorm: 666680 1-2 Tablet(s) PO Q6 as needed for pain 11/02/2016 11/06/2016 Inactive cyanocobalamin (vit B-12) 1,000 mcg/mL injection solution RxNorm: 813650 Milliliter(s) Inj 10/24/2016 10/24/2016 Inactive levothyroxine 125 mcg tablet RxNorm: 815970 Tablet(s) 1 Tablet(s) PO daily 10/24/2016 04/21/2017 Inactive liothyronine 5 mcg tablet RxNorm: 999233 1 Tablet(s) PO BID 10/24/2016 04/12/2017 Inactive hydrocodone 5 mg-acetaminophen 325 mg tablet RxNorm: 785899 1-2 Tablet(s) PO Q6 as needed for pain 10/17/2016 10/21/2016 Inactive Keflex 500 mg capsule RxNorm: 866528 1 Capsule(s) PO TID 10/07/2016 10/06/2016 Inactive Keflex 500 mg capsule RxNorm: 320549 1 Capsule(s) PO TID 10/07/2016 10/16/2016 Inactive Please deliver to patient cyanocobalamin (vit B-12) 1,000 mcg/mL injection solution RxNorm: 641150 1 Milliliter(s) Inj 09/29/2016 09/29/2016 Inactive alprazolam 0.25 mg tablet RxNorm: 104010 1 Tablet(s) PO BID 09/20/2016 03/16/2017 Inactive Cozaar 100 mg tablet RxNorm: 617736 1 Tablet(s) PO daily 09/14/2016 No Stop Date Active metoprolol tartrate 50 mg tablet RxNorm: 704864 1/2 Tablet(s) PO BID 09/14/2016 12/12/2016 Inactive Zoloft 50 mg tablet RxNorm: 924359 Tablet(s) TAKE 1 TABLET BY MOUTH DAILY 09/14/2016 03/12/2017 Inactive Generic For:ZOLOFT 50MG liothyronine 5 mcg tablet RxNorm: 571521 1 Tablet(s) PO BID 09/14/2016 10/23/2016 Inactive Calmoseptine 0.44 %-20.6 % topical ointment RxNorm: 735334 1 Application TOP BID and as needed to sore on buttocks 09/07/2016 No Stop Date Active cyanocobalamin (vit B-12) 1,000 mcg/mL injection solution RxNorm: 208629 Milliliter(s) Inj 08/29/2016 08/29/2016 Inactive hydrocodone 5 mg-acetaminophen 325 mg tablet RxNorm: 409630 1-2 Tablet(s) PO Q6 as needed for pain 08/29/2016 10/16/2016 Inactive levothyroxine 125 mcg tablet RxNorm: 546359 1 Tablet(s) PO daily 08/25/2016 10/23/2016 Inactive Topamax 25 mg tablet RxNorm: 282854 TAKE 1 TABLET BY MOUTH EVERY DAY AT BEDTIME 08/17/2016 12/05/2016 Inactive Generic For:TOPAMAX 25MG 08/17/2016 2:14:37 PM hydrocodone 5 mg-acetaminophen 325 mg tablet RxNorm: 983736 1-2 Tablet(s) PO Q6 as needed for pain 08/11/2016 08/28/2016 Inactive hydrocodone 5 mg-acetaminophen 325 mg tablet RxNorm: 586965 1 -2 Tablet(s) PO Q6 as needed for pain 08/11/2016 08/18/2016 Inactive hydrocodone 5 mg-acetaminophen 325 mg tablet RxNorm: 774070 1 Tablet(s) PO Q6 as needed for pain 08/05/2016 08/10/2016 Inactive cyanocobalamin (vit B-12) 1,000 mcg/mL injection solution RxNorm: 966130 Milliliter(s) Inj 08/04/2016 08/04/2016 Inactive Norvasc 10 mg tablet RxNorm: 304804 1 Tablet(s) PO daily 07/26/2016 07/20/2017 Inactive alprazolam 0.25 mg tablet RxNorm: 109013 1 Tablet(s) PO QHS 07/21/2016 09/19/2016 Inactive Norvasc 5 mg tablet RxNorm: 564911 1 Tablet(s) PO daily 07/21/2016 07/25/2016 Inactive levothyroxine 125 mcg tablet RxNorm: 724998 1 Tablet(s) PO daily 07/21/2016 12/11/2017 Inactive cyanocobalamin (vit B-12) 1,000 mcg/mL injection solution RxNorm: 080662 Milliliter(s) Inj 07/21/2016 07/21/2016 Inactive Zoloft 50 mg tablet RxNorm: 959338 Tablet(s) TAKE 1 TABLET BY MOUTH DAILY 07/21/2016 09/13/2016 Inactive Generic For:ZOLOFT 50MG cyanocobalamin (vit B-12) 1,000 mcg/mL injection solution RxNorm: 878592 1 Milliliter(s) Inj 07/05/2016 07/05/2016 Inactive cyanocobalamin (vit B-12) 1,000 mcg/mL injection solution RxNorm: 513905 1 Milliliter(s) Inj 06/22/2016 06/22/2016 Inactive cyanocobalamin (vit B-12) 1,000 mcg/mL injection solution RxNorm: 890493 Milliliter(s) Inj 06/09/2016 06/09/2016 Inactive Aricept 10 mg tablet RxNorm: 266741 1 Tablet(s) PO daily 05/27/2016 05/21/2017 Inactive Mobic 15 mg tablet RxNorm: 909008 1 Tablet(s) PO daily 05/27/2016 05/21/2017 Inactive levothyroxine 125 mcg tablet RxNorm: 357349 1 Tablet(s) PO daily 05/25/2016 07/20/2016 Inactive cyanocobalamin (vit B-12) 1,000 mcg/mL injection solution RxNorm: 733309 1 Milliliter(s) Inj 05/25/2016 05/25/2016 Inactive doxycycline hyclate 100 mg capsule RxNorm: 8985247 1 Capsule(s) PO BID 05/16/2016 05/15/2016 Inactive doxycycline hyclate 100 mg capsule RxNorm: 1621722 1 Capsule(s) PO BID 05/16/2016 05/22/2016 Inactive cyanocobalamin (vit B-12) 1,000 mcg/mL injection solution RxNorm: 446369 Milliliter(s) Inj 05/10/2016 05/10/2016 Inactive cyanocobalamin (vit B-12) 1,000 mcg/mL injection solution RxNorm: 625040 Milliliter(s) Inj 04/26/2016 04/26/2016 Inactive Topamax 25 mg tablet RxNorm: 156546 1 Tablet(s) PO QPM 04/22/2016 08/16/2016 Inactive cyanocobalamin (vit B-12) 1,000 mcg/mL injection solution RxNorm: 971966 Milliliter(s) 1 Milliliter(s) Inj [id number] 04/11/2016 12/31/2017 Inactive liothyronine 5 mcg tablet RxNorm: 314860 1 Tablet(s) PO BID 04/11/2016 09/13/2016 Inactive cyanocobalamin (vit B-12) 1,000 mcg/mL injection solution RxNorm: 512224 Milliliter(s) Inj 04/11/2016 04/11/2016 Inactive cyanocobalamin (vit B-12) 1,000 mcg/mL injection solution RxNorm: 876888 Milliliter(s) Inj 03/31/2016 03/31/2016 Inactive cyanocobalamin (vit B-12) 1,000 mcg/mL injection solution RxNorm: 467526 1 Milliliter(s) Inj 03/15/2016 03/15/2016 Inactive levothyroxine 125 mcg tablet RxNorm: 269454 1 Tablet(s) PO daily 2016 03/03/2016 Inactive levothyroxine 125 mcg tablet RxNorm: 401338 1 Tablet(s) PO daily 2016 05/24/2016 Inactive cyanocobalamin (vit B-12) 1,000 mcg/mL injection solution RxNorm: 370861 Milliliter(s) Inj 02/25/2016 02/25/2016 Inactive cyanocobalamin (vit B-12) 1,000 mcg/mL injection solution RxNorm: 055550 1 Milliliter(s) Inj 02/02/2016 02/02/2016 Inactive sucralfate 1 gram tablet RxNorm: 052691 1 Tablet(s) PO QHS 01/25/2016 No Stop Date Active amiodarone 200 mg tablet RxNorm: 767858 1/2 Tablet(s) PO BID 01/25/2016 05/21/2017 Inactive cyanocobalamin (vit B-12) 1,000 mcg/mL injection solution RxNorm: 309709 Milliliter(s) Inj 01/18/2016 01/18/2016 Inactive cyanocobalamin (vit B-12) 1,000 mcg/mL injection solution RxNorm: 011520 Milliliter(s) Inj 12/29/2015 12/29/2015 Inactive Topamax 25 mg tablet RxNorm: 902763 1 Tablet(s) PO QPM 12/08/2015 04/05/2016 Inactive cyanocobalamin (vit B-12) 1,000 mcg/mL injection solution RxNorm: 546580 Milliliter(s) Inj 12/08/2015 12/08/2015 Inactive Bactrim DS 800 mg-160 mg tablet RxNorm: 534182 1 Tablet(s) PO BID 11/23/2015 11/22/2015 Inactive cyanocobalamin (vit B-12) 1,000 mcg/mL injection solution RxNorm: 791649 Milliliter(s) Inj 11/23/2015 11/23/2015 Inactive Bactrim DS 800 mg-160 mg tablet RxNorm: 369932 1 Tablet(s) PO BID 11/23/2015 11/29/2015 Inactive cyanocobalamin (vit B-12) 1,000 mcg/mL injection solution RxNorm: 998603 Milliliter(s) Inj 11/11/2015 11/11/2015 Inactive amoxicillin 500 mg capsule RxNorm: 952311 1 Capsule(s) PO TID 11/10/2015 11/19/2015 Inactive Zithromax Z-Henrique 250 mg tablet RxNorm: 941408 1 Tablet(s) PO UD 11/10/2015 01/24/2016 Inactive zpack x 1 amoxicillin 500 mg capsule RxNorm: 260030 1 Capsule(s) PO TID 11/10/2015 11/09/2015 Inactive cyanocobalamin (vit B-12) 1,000 mcg/mL injection solution RxNorm: 110578 1 Milliliter(s) Inj 10/29/2015 10/29/2015 Inactive [place] 3 capsule RxNorm: 1 Capsule(s) PO QAM , 2 Capsules at noon, 1 Capsule QHS 10/13/2015 No Stop Date Active potassium chloride ER 20 mEq tablet,extended release RxNorm: 480199 2 Tablet(s) PO daily at noon 10/13/2015 No Stop Date Active alprazolam 0.25 mg tablet RxNorm: 137404 1 Tablet(s) PO QHS 10/13/2015 07/20/2016 Inactive amiodarone 200 mg tablet RxNorm: 492168 1 Tablet(s) PO BID 10/13/2015 01/24/2016 Inactive cyanocobalamin (vit B-12) 1,000 mcg/mL injection solution RxNorm: 526873 1 Milliliter(s) Inj 10/12/2015 10/12/2015 Inactive Zofran 4 mg tablet RxNorm: 831808 1 Tablet(s) PO daily as needed 10/07/2015 05/24/2016 Inactive Zoloft 50 mg tablet RxNorm: 125834 TAKE 1 TABLET BY MOUTH DAILY 10/05/2015 05/01/2016 Inactive Generic For:ZOLOFT 50MG cyanocobalamin (vit B-12) 1,000 mcg/mL injection solution RxNorm: 705090 1 Milliliter(s) Inj 09/29/2015 09/29/2015 Inactive cyanocobalamin (vit B-12) 1,000 mcg/mL injection solution RxNorm: 562500 1 Milliliter(s) Inj 09/17/2015 09/17/2015 Inactive Norvasc 5 mg tablet RxNorm: 871983 1 Tablet(s) PO daily 09/17/2015 07/20/2016 Inactive liothyronine 5 mcg tablet RxNorm: 820664 1 Tablet(s) PO BID 09/17/2015 03/14/2016 Inactive Zoloft 50 mg tablet RxNorm: 734733 1 Tablet(s) PO daily 09/17/2015 10/04/2015 Inactive buspirone 15 mg tablet RxNorm: 301984 1 Tablet(s) PO BID 09/17/2015 09/10/2016 Inactive buspirone 15 mg tablet RxNorm: 760407 1 Tablet(s) PO BID 09/14/2015 09/16/2015 Inactive Topamax 25 mg tablet RxNorm: 984689 1 Tablet(s) PO QPM 09/03/2015 12/07/2015 Inactive cyanocobalamin (vit B-12) 1,000 mcg/mL injection solution RxNorm: 665307 1 Milliliter(s) Inj 09/03/2015 09/03/2015 Inactive cyanocobalamin (vit B-12) 1,000 mcg/mL injection solution RxNorm: 292925 Milliliter(s) Inj 08/17/2015 08/17/2015 Inactive cyanocobalamin (vit B-12) 1,000 mcg/mL injection solution RxNorm: 402329 Milliliter(s) Inj 08/06/2015 08/06/2015 Inactive levothyroxine 150 mcg tablet RxNorm: 044229 1 Tablet(s) PO daily 07/22/2015 03/03/2016 Inactive Aricept 10 mg tablet RxNorm: 444448 1 Tablet(s) PO daily 07/22/2015 05/26/2016 Inactive Mobic 15 mg tablet RxNorm: 118142 1 Tablet(s) PO daily 07/22/2015 05/26/2016 Inactive cyanocobalamin (vit B-12) 1,000 mcg/mL injection solution RxNorm: 233056 Milliliter(s) Inj 07/22/2015 07/22/2015 Inactive liothyronine 5 mcg tablet RxNorm: 375796 1 Tablet(s) PO BID 07/22/2015 09/16/2015 Inactive cyanocobalamin (vit B-12) 1,000 mcg/mL injection solution RxNorm: 493286 Milliliter(s) Inj 07/08/2015 07/08/2015 Inactive cyanocobalamin (vit B-12) 1,000 mcg/mL injection solution RxNorm: 846510 Milliliter(s) Inj 06/23/2015 06/23/2015 Inactive cyanocobalamin (vit B-12) 1,000 mcg/mL injection solution RxNorm: 372979 1 Milliliter(s) Inj 06/08/2015 06/08/2015 Inactive cyanocobalamin (vit B-12) 1,000 mcg/mL injection solution RxNorm: 320584 Milliliter(s) Inj 05/27/2015 05/27/2015 Inactive Aricept 10 mg tablet RxNorm: 887950 1 Tablet(s) PO daily 05/20/2015 07/21/2015 Inactive Zofran 4 mg tablet RxNorm: 050433 1 Tablet(s) PO daily as needed 05/20/2015 06/18/2015 Inactive alprazolam 0.25 mg tablet RxNorm: 517259 1 Tablet(s) PO BID 05/20/2015 10/12/2015 Inactive Mobic 15 mg tablet RxNorm: 096045 1 Tablet(s) PO daily 05/20/2015 07/21/2015 Inactive tramadol ER 100 mg tablet,extended release 24 hr RxNorm: 828145 1 Tablet(s) PO Q6 as needed 05/13/2015 No Stop Date Active cyanocobalamin (vit B-12) 1,000 mcg/mL injection solution RxNorm: 309261 1 Milliliter(s) Inj 05/12/2015 05/12/2015 Inactive Topamax 25 mg tablet RxNorm: 617997 1 Tablet(s) PO BID (start at one pill at bedtime x 1week then twice daily thereafter) 05/12/2015 09/02/2015 Inactive cyanocobalamin (vit B-12) 1,000 mcg/mL injection kit RxNorm: 385040 kit Inj 04/30/2015 04/30/2015 Inactive cyanocobalamin (vit B-12) 1,000 mcg/mL injection solution RxNorm: 117568 Milliliter(s) Inj 04/16/2015 04/16/2015 Inactive levothyroxine 150 mcg tablet RxNorm: 024627 1 Tablet(s) PO daily 04/08/2015 07/21/2015 Inactive cyanocobalamin (vit B-12) 1,000 mcg/mL injection solution RxNorm: 351132 Milliliter(s) 1 Milliliter(s) Inj H8ddhzh 04/08/2015 04/10/2016 Inactive Cytomel 5 mcg tablet RxNorm: 718318 1 Tablet(s) PO BID 04/08/2015 10/12/2015 Inactive Cytomel 5 mcg tablet RxNorm: 567047 1 Tablet(s) PO BID 04/07/2015 04/07/2015 Inactive Cytomel 5 mcg tablet RxNorm: 014154 1 Tablet(s) PO BID 04/07/2015 04/06/2015 Inactive cyanocobalamin (vit B-12) 1,000 mcg/mL injection solution RxNorm: 362569 Milliliter(s) Inj 04/02/2015 04/02/2015 Inactive cyanocobalamin (vit B-12) 1,000 mcg/mL injection solution RxNorm: 363406 Milliliter(s) Inj 03/18/2015 03/18/2015 Inactive cyanocobalamin (vit B-12) 1,000 mcg/mL injection solution RxNorm: 552256 Milliliter(s) 1 Milliliter(s) Inj L4evyaa 03/18/2015 04/07/2015 Inactive cyanocobalamin (vit B-12) 1,000 mcg/mL injection solution RxNorm: 423766 1 Milliliter(s) Inj Z4yaqxz 03/16/2015 03/17/2015 Inactive cyanocobalamin (vit B-12) 1,000 mcg/mL injection solution RxNorm: 386309 Milliliter(s) Inj 03/03/2015 03/03/2015 Inactive cyanocobalamin (vit B-12) 1,000 mcg/mL injection solution RxNorm: 155257 Milliliter(s) Inj 02/18/2015 02/18/2015 Inactive cyanocobalamin (vit B-12) 1,000 mcg/mL injection solution RxNorm: 986641 Milliliter(s) Inj 02/04/2015 02/04/2015 Inactive cyanocobalamin (vit B-12) 1,000 mcg/mL injection solution RxNorm: 916575 Milliliter(s) Inj 01/22/2015 01/22/2015 Inactive Lac-Hydrin Five 5 % lotion RxNorm: 713627 1 TOP daily 01/13/2015 03/13/2015 Inactive Lac-Hydrin Five 5 % lotion RxNorm: 707567 1 TOP daily 01/13/2015 01/12/2015 Inactive cyanocobalamin (vit B-12) 1,000 mcg/mL injection solution RxNorm: 669550 Milliliter(s) Inj 01/08/2015 01/08/2015 Inactive cyanocobalamin (vit B-12) 1,000 mcg/mL injection solution RxNorm: 733508 Milliliter(s) Inj 12/25/2014 12/25/2014 Inactive levothyroxine 150 mcg tablet RxNorm: 583551 1 Tablet(s) PO daily 12/24/2014 04/07/2015 Inactive tramadol 50 mg tablet RxNorm: 044550 1-2 Tablet(s) PO Q6 as needed 12/17/2014 05/12/2015 Inactive alprazolam 0.25 mg tablet RxNorm: 389607 1 Tablet(s) PO BID 12/17/2014 04/15/2015 Inactive Pradaxa 150 mg capsule RxNorm: 1656667 1 Capsule(s) PO BID 12/16/2014 No Stop Date Active metoprolol tartrate 50 mg tablet RxNorm: 014368 1/2 Tablet(s) PO BID 12/16/2014 09/13/2016 Inactive buspirone 15 mg tablet RxNorm: 038292 1 Tablet(s) PO BID 12/16/2014 09/13/2015 Inactive cyanocobalamin (vit B-12) 1,000 mcg/mL injection solution RxNorm: 041950 1 Milliliter(s) Inj [id number] 12/16/2014 03/15/2015 Inactive cyanocobalamin (vit B-12) 1,000 mcg/mL injection solution RxNorm: 077269 1 Milliliter(s) Inj R3rsbqu 12/16/2014 12/15/2014 Inactive sucralfate 1 gram tablet RxNorm: 093620 Tablet(s) PO QID 12/16/2014 12/10/2015 Inactive cyanocobalamin (vit B-12) 1,000 mcg/mL injection solution RxNorm: 159280 Milliliter(s) Inj 12/10/2014 12/10/2014 Inactive cyanocobalamin (vit B-12) 1,000 mcg/mL injection solution RxNorm: 402962 Milliliter(s) Inj 11/26/2014 11/26/2014 Inactive Zoloft 50 mg tablet RxNorm: 706616 1 Tablet(s) PO daily 11/24/2014 06/21/2015 Inactive Zoloft 50 mg tablet RxNorm: 171177 1 Tablet(s) PO daily 11/24/2014 11/23/2014 Inactive cyanocobalamin (vit B-12) 1,000 mcg/mL injection kit RxNorm: 943621 Milliliter(s) Inj 11/12/2014 11/12/2014 Inactive cyanocobalamin (vit B-12) 1,000 mcg/mL injection solution RxNorm: 525488 Milliliter(s) Inj 10/28/2014 10/28/2014 Inactive [SAVINGS FOR NON-COVERED DRUGS -- [id number], PCN: [id number], Group: [id number], ID# [id number], Questions: . THIS IS NOT INSURANCE.] promethazine oral RxNorm: 8745 oral No Start Date Active digoxin 125 mcg tablet RxNorm: 691053 Tablet(s) PO every other day No Start Date Active furosemide 40 mg tablet RxNorm: 134045 1 Tablet(s) PO daily No Start Date Active Vitamin D3 5,000 unit tablet RxNorm: 008383 1 Tablet(s) PO daily No Start Date Active erythromycin 250 mg capsule,delayed release RxNorm: 970861 1 Capsule(s) PO AC No Start Date Active Protonix 40 mg tablet,delayed release RxNorm: 609212 1 Tablet(s) PO BID No Start Date Active Cozaar 100 mg tablet RxNorm: 856952 1 Tablet(s) PO daily No Start Date 09/13/2016 Inactive sucralfate 1 gram tablet RxNorm: 614131 Tablet(s) PO QID No Start Date 12/15/2014 Inactive amiodarone 200 mg tablet RxNorm: 873668 2 Tablet(s) PO daily No Start Date 10/13/2015 Inactive buspirone 15 mg tablet RxNorm: 782678 1 Tablet(s) PO daily No Start Date 12/15/2014 Inactive potassium chloride ER 20 mEq tablet,extended release RxNorm: 268945 1 Tablet(s) PO daily No Start Date 10/12/2015 Inactive Prilosec 40 mg capsule,delayed release RxNorm: 902002 1 Capsule(s) PO daily No Start Date 09/02/2015 Inactive [place] 3 capsule RxNorm: Capsule(s) PO No Start Date 10/12/2015 Inactive alprazolam 0.25 mg tablet RxNorm: 770181 Tablet(s) PO QHS No Start Date 12/16/2014 Inactive levothyroxine 125 mcg tablet RxNorm: 110742 1 Tablet(s) PO daily No Start Date 12/23/2014 Inactive liothyronine 5 mcg tablet RxNorm: 166920 1 Tablet(s) PO BID No Start Date 07/21/2015 Inactive Mobic 15 mg tablet RxNorm: 829420 Tablet(s) PO daily No Start Date 05/19/2015 Inactive Norvasc 5 mg tablet RxNorm: 166236 1 Tablet(s) PO daily No Start Date 09/16/2015 Inactive Zofran 4 mg tablet RxNorm: 466612 1 Tablet(s) PO daily as needed No Start Date 05/19/2015 Inactive Tamiflu 75 mg capsule RxNorm: 214375 1 Capsule(s) PO BID No Start Date 07/23/2017 Inactive tramadol 50 mg tablet RxNorm: 465811 1 Tablet(s) PO daily as needed No Start Date 12/16/2014 Inactive amiodarone 200 mg tablet RxNorm: 659558 1 Tablet(s) PO daily No Start Date 10/12/2015 Inactive Zofran ODT 4 mg disintegrating tablet RxNorm: 220819 1 Tablet(s) PO TID as needed No Start Date 05/02/2017 Inactive albuterol sulfate 2.5 mg/3 mL (0.083 %) solution for nebulization RxNorm: 926742 3 Milliliter(s) INH Q6 PRN No Start Date 09/20/2017 Inactive meclizine 25 mg tablet RxNorm: 414972 Tablet(s) PO as needed No Start Date 05/24/2016 Inactive Pradaxa 150 mg capsule RxNorm: 3650250 1 Capsule(s) PO daily No Start Date 12/15/2014 Inactive metoprolol tartrate 50 mg tablet RxNorm: 432858 1/2 Tablet(s) PO No Start Date 12/15/2014 Inactive Aricept 10 mg tablet RxNorm: 731897 Tablet(s) PO daily No Start Date 05/19/2015 Inactive Calmoseptine 0.44 %-20.6 % topical ointment RxNorm: 009869 1 Application TOP BID and as needed to sore on buttocks No Start Date 09/06/2016 Inactive Zithromax Z-Henrique 250 mg tablet RxNorm: 855866 1 Tablet(s) PO UD No Start Date 11/09/2015 Inactive zpack x 1 Medication Administered Medication Codes Instructions Start Date Status cyanocobalamin (vit B-12) 1,000 mcg/mL injection solution RxNorm: 359514 Milliliter 05/24/2018 Active cyanocobalamin (vit B-12) 1,000 mcg/mL injection solution RxNorm: 843998 Milliliter 05/09/2018 No longer Active cyanocobalamin (vit B-12) 1,000 mcg/mL injection solution RxNorm: 212867 Milliliter 04/26/2018 No longer Active cyanocobalamin (vit B-12) 1,000 mcg/mL injection solution RxNorm: 381997 Milliliter 04/12/2018 No longer Active cyanocobalamin (vit B-12) 1,000 mcg/mL injection solution RxNorm: 795200 Milliliter 03/30/2018 No longer Active cyanocobalamin (vit B-12) 1,000 mcg/mL injection solution RxNorm: 255935 Milliliter 03/16/2018 No longer Active cyanocobalamin (vit B-12) 1,000 mcg/mL injection solution RxNorm: 523529 Milliliter 03/02/2018 No longer Active cyanocobalamin (vit B-12) 1,000 mcg/mL injection solution RxNorm: 427118 Milliliter 02/08/2018 No longer Active cyanocobalamin (vit B-12) 1,000 mcg/mL injection solution RxNorm: 838958 Milliliter 01/24/2018 No longer Active cyanocobalamin (vit B-12) 1,000 mcg/mL injection solution RxNorm: 996139 Milliliter 01/10/2018 No longer Active cyanocobalamin (vit B-12) 1,000 mcg/mL injection solution RxNorm: 192164 Milliliter 12/27/2017 No longer Active cyanocobalamin (vit B-12) 1,000 mcg/mL injection solution RxNorm: 786443 1Milliliter 12/12/2017 No longer Active cyanocobalamin (vit B-12) 1,000 mcg/mL injection solution RxNorm: 285631 Milliliter 12/01/2017 No longer Active cyanocobalamin (vit B-12) 1,000 mcg/mL injection solution RxNorm: 937984 1Milliliter 11/17/2017 No longer Active cyanocobalamin (vit B-12) 1,000 mcg/mL injection solution RxNorm: 830061 1Milliliter 11/02/2017 No longer Active cyanocobalamin (vit B-12) 1,000 mcg/mL injection solution RxNorm: 261179 1Milliliter 10/20/2017 No longer Active cyanocobalamin (vit B-12) 1,000 mcg/mL injection solution RxNorm: 165751 Milliliter 10/06/2017 No longer Active cyanocobalamin (vit B-12) 1,000 mcg/mL injection solution RxNorm: 361886 Milliliter 09/21/2017 No longer Active Kenalog 40 mg/mL suspension for injection RxNorm: 0121767 Milliliter 09/15/2017 No longer Active cyanocobalamin (vit B-12) 1,000 mcg/mL injection solution RxNorm: 912285 Milliliter 09/07/2017 No longer Active cyanocobalamin (vit B-12) 1,000 mcg/mL injection solution RxNorm: 597185 Milliliter 08/24/2017 No longer Active cyanocobalamin (vit B-12) 1,000 mcg/mL injection solution RxNorm: 018793 Milliliter 07/06/2017 No longer Active cyanocobalamin (vit B-12) 1,000 mcg/mL injection solution RxNorm: 206298 Milliliter 06/20/2017 No longer Active Kenalog 40 mg/mL suspension for injection RxNorm: 4167278 1Milliliter 06/20/2017 No longer Active cyanocobalamin (vit B-12) 1,000 mcg/mL injection solution RxNorm: 822436 Milliliter 06/05/2017 No longer Active cyanocobalamin (vit B-12) 1,000 mcg/mL injection solution RxNorm: 427935 Milliliter 05/25/2017 No longer Active cyanocobalamin (vit B-12) 1,000 mcg/mL injection solution RxNorm: 345102 Milliliter 05/16/2017 No longer Active cyanocobalamin (vit B-12) 1,000 mcg/mL injection solution RxNorm: 165125 1Milliliter 05/01/2017 No longer Active cyanocobalamin (vit B-12) 1,000 mcg/mL injection solution RxNorm: 438311 Milliliter 04/18/2017 No longer Active cyanocobalamin (vit B-12) 1,000 mcg/mL injection solution RxNorm: 395559 Milliliter 04/06/2017 No longer Active cyanocobalamin (vit B-12) 1,000 mcg/mL injection solution RxNorm: 492241 Milliliter 03/22/2017 No longer Active cyanocobalamin (vit B-12) 1,000 mcg/mL injection solution RxNorm: 546353 Milliliter 03/09/2017 No longer Active cyanocobalamin (vit B-12) 1,000 mcg/mL injection solution RxNorm: 451075 Milliliter 02/23/2017 No longer Active cyanocobalamin (vit B-12) 1,000 mcg/mL injection solution RxNorm: 861928 Milliliter 02/09/2017 No longer Active cyanocobalamin (vit B-12) 1,000 mcg/mL injection solution RxNorm: 223615 Milliliter 01/23/2017 No longer Active cyanocobalamin (vit B-12) 1,000 mcg/mL injection solution RxNorm: 220176 Milliliter 01/10/2017 No longer Active cyanocobalamin (vit B-12) 1,000 mcg/mL injection solution RxNorm: 700598 1Milliliter 12/28/2016 No longer Active cyanocobalamin (vit B-12) 1,000 mcg/mL injection solution RxNorm: 786177 Milliliter 12/14/2016 No longer Active cyanocobalamin (vit B-12) 1,000 mcg/mL injection solution RxNorm: 873612 Milliliter 11/24/2016 No longer Active cyanocobalamin (vit B-12) 1,000 mcg/mL injection solution RxNorm: 723269 1Milliliter 11/07/2016 No longer Active cyanocobalamin (vit B-12) 1,000 mcg/mL injection solution RxNorm: 821802 Milliliter 10/24/2016 No longer Active cyanocobalamin (vit B-12) 1,000 mcg/mL injection solution RxNorm: 737399 1Milliliter 09/29/2016 No longer Active cyanocobalamin (vit B-12) 1,000 mcg/mL injection solution RxNorm: 894805 Milliliter 08/29/2016 No longer Active cyanocobalamin (vit B-12) 1,000 mcg/mL injection solution RxNorm: 237649 Milliliter 08/04/2016 No longer Active cyanocobalamin (vit B-12) 1,000 mcg/mL injection solution RxNorm: 585292 Milliliter 07/21/2016 No longer Active cyanocobalamin (vit B-12) 1,000 mcg/mL injection solution RxNorm: 468125 1Milliliter 07/05/2016 No longer Active cyanocobalamin (vit B-12) 1,000 mcg/mL injection solution RxNorm: 999823 1Milliliter 06/22/2016 No longer Active cyanocobalamin (vit B-12) 1,000 mcg/mL injection solution RxNorm: 568181 Milliliter 06/09/2016 No longer Active cyanocobalamin (vit B-12) 1,000 mcg/mL injection solution RxNorm: 095500 1Milliliter 05/25/2016 No longer Active cyanocobalamin (vit B-12) 1,000 mcg/mL injection solution RxNorm: 324133 Milliliter 05/10/2016 No longer Active cyanocobalamin (vit B-12) 1,000 mcg/mL injection solution RxNorm: 501471 Milliliter 04/26/2016 No longer Active cyanocobalamin (vit B-12) 1,000 mcg/mL injection solution RxNorm: 834920 Milliliter 04/11/2016 No longer Active cyanocobalamin (vit B-12) 1,000 mcg/mL injection solution RxNorm: 186486 Milliliter 03/31/2016 No longer Active cyanocobalamin (vit B-12) 1,000 mcg/mL injection solution RxNorm: 402873 1Milliliter 03/15/2016 No longer Active cyanocobalamin (vit B-12) 1,000 mcg/mL injection solution RxNorm: 932518 Milliliter 02/25/2016 No longer Active cyanocobalamin (vit B-12) 1,000 mcg/mL injection solution RxNorm: 014078 1Milliliter 02/02/2016 No longer Active cyanocobalamin (vit B-12) 1,000 mcg/mL injection solution RxNorm: 532734 Milliliter 01/18/2016 No longer Active cyanocobalamin (vit B-12) 1,000 mcg/mL injection solution RxNorm: 888878 Milliliter 12/29/2015 No longer Active cyanocobalamin (vit B-12) 1,000 mcg/mL injection solution RxNorm: 727972 Milliliter 12/08/2015 No longer Active cyanocobalamin (vit B-12) 1,000 mcg/mL injection solution RxNorm: 586796 Milliliter 11/23/2015 No longer Active cyanocobalamin (vit B-12) 1,000 mcg/mL injection solution RxNorm: 960091 Milliliter 11/11/2015 No longer Active cyanocobalamin (vit B-12) 1,000 mcg/mL injection solution RxNorm: 094408 1Milliliter 10/29/2015 No longer Active cyanocobalamin (vit B-12) 1,000 mcg/mL injection solution RxNorm: 045848 1Milliliter 10/12/2015 No longer Active cyanocobalamin (vit B-12) 1,000 mcg/mL injection solution RxNorm: 218660 1Milliliter 09/29/2015 No longer Active cyanocobalamin (vit B-12) 1,000 mcg/mL injection solution RxNorm: 051784 1Milliliter 09/17/2015 No longer Active cyanocobalamin (vit B-12) 1,000 mcg/mL injection solution RxNorm: 154850 1Milliliter 09/03/2015 No longer Active cyanocobalamin (vit B-12) 1,000 mcg/mL injection solution RxNorm: 108278 Milliliter 08/17/2015 No longer Active cyanocobalamin (vit B-12) 1,000 mcg/mL injection solution RxNorm: 659405 Milliliter 08/06/2015 No longer Active cyanocobalamin (vit B-12) 1,000 mcg/mL injection solution RxNorm: 799256 Milliliter 07/22/2015 No longer Active cyanocobalamin (vit B-12) 1,000 mcg/mL injection solution RxNorm: 431848 Milliliter 07/08/2015 No longer Active cyanocobalamin (vit B-12) 1,000 mcg/mL injection solution RxNorm: 738428 Milliliter 06/23/2015 No longer Active cyanocobalamin (vit B-12) 1,000 mcg/mL injection solution RxNorm: 921307 1Milliliter 06/08/2015 No longer Active cyanocobalamin (vit B-12) 1,000 mcg/mL injection solution RxNorm: 580347 Milliliter 05/27/2015 No longer Active cyanocobalamin (vit B-12) 1,000 mcg/mL injection solution RxNorm: 927959 1Milliliter 05/12/2015 No longer Active cyanocobalamin (vit B-12) 1,000 mcg/mL injection kit RxNorm: 473175 kit 04/30/2015 No longer Active cyanocobalamin (vit B-12) 1,000 mcg/mL injection solution RxNorm: 053616 Milliliter 04/16/2015 No longer Active cyanocobalamin (vit B-12) 1,000 mcg/mL injection solution RxNorm: 795949 Milliliter 04/02/2015 No longer Active cyanocobalamin (vit B-12) 1,000 mcg/mL injection solution RxNorm: 072696 Milliliter 03/18/2015 No longer Active cyanocobalamin (vit B-12) 1,000 mcg/mL injection solution RxNorm: 350596 Milliliter 03/03/2015 No longer Active cyanocobalamin (vit B-12) 1,000 mcg/mL injection solution RxNorm: 794812 Milliliter 02/18/2015 No longer Active cyanocobalamin (vit B-12) 1,000 mcg/mL injection solution RxNorm: 550339 Milliliter 02/04/2015 No longer Active cyanocobalamin (vit B-12) 1,000 mcg/mL injection solution RxNorm: 823866 Milliliter 01/22/2015 No longer Active cyanocobalamin (vit B-12) 1,000 mcg/mL injection solution RxNorm: 664527 Milliliter 01/08/2015 No longer Active cyanocobalamin (vit B-12) 1,000 mcg/mL injection solution RxNorm: 708485 Milliliter 12/25/2014 No longer Active cyanocobalamin (vit B-12) 1,000 mcg/mL injection solution RxNorm: 067643 Milliliter 12/10/2014 No longer Active cyanocobalamin (vit B-12) 1,000 mcg/mL injection solution RxNorm: 976256 Milliliter 11/26/2014 No longer Active cyanocobalamin (vit B-12) 1,000 mcg/mL injection kit RxNorm: 810966 Milliliter 11/12/2014 No longer Active cyanocobalamin (vit B-12) 1,000 mcg/mL injection solution RxNorm: 893287 Milliliter 10/28/2014 No longer Active Immunizations Vaccine [...] (3rd IS) 3.20 uIU/mL 02/26/2018 Free T4 Adz259 FREE T4 0.99 ng/dL 02/26/2018 Cbc With [...] 28.5 pg 02/26/2018 Cbc With Differential Ord2 [place]% 10.3 % 02/26/2018 Cbc With Differential Ord2 [...] 1.80 K/ul 02/26/2018 Cbc With Differential Ord2 [place] ABS# 0.7 K/ul 02/26/2018 Cbc With Differential Ord2 Eos ABS# 0.2 K/ul 02/26/2018 Cbc With Differential Ord2 Baso ABS# 0.0 K/ul 02/26/2018 B12 Vhn282 B12 889.00 pg/ml 02/26/2018 Digoxin Ord9 DIGOXIN 0.7 NG/ML 11/23/2017 Comp Metabolic Ctr691 NA 142 mEq/L 11/23/2017 Comp Metabolic Ojl586 K 4.9 mEq/L 11/23/2017 Comp Metabolic Yth285 CL 112 mEq/L 11/23/2017 Comp Metabolic Foa978 CO2 18.0 mEq/L 11/23/2017 Comp Metabolic Aby977 ANION GAP 17 11/23/2017 Comp Metabolic Gir436 GLUCOSE 123 mg/dL 11/23/2017 Comp Metabolic Zct108 Creat 1.0 mg/dL 11/23/2017 Comp Metabolic Rif928 eGFR 59 ml/min/1.73m2 11/23/2017 Comp Metabolic Vbv783 BUN 24 mg/dL 11/23/2017 Comp Metabolic Aes010 B/C Ratio 25.0 Ratio 11/23/2017 Comp Metabolic Yvs969 CALCIUM 9.4 mg/dL 11/23/2017 Comp Metabolic Bxe229 ALK PHOS 56 U/L 11/23/2017 Comp Metabolic Nnl463 AST(SGOT) 17 U/L 11/23/2017 Comp Metabolic Wdf790 ALT(SGPT) 16 U/L 11/23/2017 Comp Metabolic Egt449 BILI T 0.7 mg/dL 11/23/2017 Comp Metabolic Aml539 ALBUMIN 3.8 g/dL 11/23/2017 Comp Metabolic Dwg271 TPRO 6.2 g/dL 11/23/2017 Comp Metabolic Hwc475 GLOB 2.4 g/dL 11/23/2017 Comp Metabolic Zce282 A/G Ratio 1.6 Ratio 11/23/2017 Comp Metabolic Ate760 Osmo 289 mOsmo 11/23/2017 Free T4 Uhq828 FREE T4 1.04 ng/dL 11/23/2017 %Hba1C Ltr826 % HbA1c 05753- 6 6.4 % 11/23/2017 %Hba1C Qhz339 Gluc Ave 137 mg/dL 11/23/2017 Lipid Ord30 CHOL 179 mg/dL 11/23/2017 Lipid Ord30 HDL 51.0 mg/dl 11/23/2017 Lipid Ord30 TRIG 134 mg/dL 11/23/2017 Lipid Ord30 LDL 101 mg/dL 11/23/2017 Lipid Ord30 C/HDL 3.5 Ratio 11/23/2017 Tsh Ord6 TSH (3rd IS) 1.00 uIU/mL 11/23/2017 Microalbumin Kvu142 MicroAlb <0.7 mg/dL 11/23/2017 Comp Metabolic Fni848 NA 141 mEq/L 01/23/2017 Comp Metabolic Bak902 K 4.5 mEq/L 01/23/2017 Comp Metabolic Som029 CL 107 mEq/L 01/23/2017 Comp Metabolic Ahe117 CO2 21.0 mEq/L 01/23/2017 Comp Metabolic Ylv595 ANION GAP 18 01/23/2017 Comp Metabolic Qtj883 GLUCOSE 138 mg/dL 01/23/2017 Comp Metabolic Yxx135 Creat 1.0 mg/dL 01/23/2017 Comp Metabolic Nzz539 eGFR 56 ml/min/1.73m2 01/23/2017 Comp Metabolic Qmi409 BUN 26 mg/dL 01/23/2017 Comp Metabolic Abf102 B/C Ratio 25.7 Ratio 01/23/2017 Comp Metabolic Clp088 CALCIUM 9.0 mg/dL 01/23/2017 Comp Metabolic Mry532 ALK PHOS 37 U/L 01/23/2017 Comp Metabolic Mhr724 AST(SGOT) 20 U/L 01/23/2017 Comp Metabolic Blh416 ALT(SGPT) 25 U/L 01/23/2017 Comp Metabolic Pfo156 BILI T 0.9 mg/dL 01/23/2017 Comp Metabolic Nmr062 ALBUMIN 3.8 g/dL 01/23/2017 Comp Metabolic Fro264 TPRO 6.5 g/dL 01/23/2017 Comp Metabolic Ymt095 GLOB 2.7 g/dL 01/23/2017 Comp Metabolic Fhe661 A/G Ratio 1.4 Ratio 01/23/2017 Comp Metabolic Fqe390 Osmo 288 mOsmo 01/23/2017 Free T4 Xqf555 FREE T4 1.05 ng/dL 01/23/2017 %Hba1C Vok565 % HbA1c 05628- 6 6.1 % 01/23/2017 %Hba1C Wfb599 Gluc Ave 128 mg/dL 01/23/2017 Tsh Ord6 hTSH II 1.68 uIU/mL 01/23/2017 Culture Urine [id number] URINE CULTURE SEE NOTES 11/10/2016 Culture Urine [id number] Continued Results 11/10/2016 Urine Culture Ucult Complete [...] Ord15 CALCIUM 9.3 mg/dL 09/29/2016 Free T4 Ezl327 FREE T4 0.99 ng/dL 09/07/2016 Cbc With [...] 30.0 pg 09/07/2016 Cbc With Differential Ord2 [place]% 9.8 % 09/07/2016 Cbc With Differential Ord2 [...] 1.75 K/ul 09/07/2016 Cbc With Differential Ord2 [place] ABS# 0.6 K/ul 09/07/2016 Cbc With Differential Ord2 Eos ABS# 0.1 K/ul 09/07/2016 Cbc With Differential Ord2 Baso ABS# 0.0 K/ul 09/07/2016 Tsh Ord6 hTSH II 1.41 uIU/mL 09/07/2016 Culture Urine [id number] URINE CULTURE SEE NOTES 06/27/2016 Lipid Ord30 CHOL 196 mg/dL 06/22/2016 Lipid Ord30 HDL 63.0 mg/dl 06/22/2016 Lipid Ord30 TRIG 154 mg/dL 06/22/2016 Lipid Ord30 LDL 102 mg/dL 06/22/2016 Lipid Ord30 C/HDL 3.1 Ratio 06/22/2016 Hepatic Boo875 ALBUMIN 4.2 g/dL 06/22/2016 Hepatic Rxt528 TPRO 7.0 g/dL 06/22/2016 Hepatic Adh714 GLOB 2.8 g/dL 06/22/2016 Hepatic Jgs136 A/G Ratio 1.5 Ratio 06/22/2016 Hepatic Gej453 ALK PHOS 54 U/L 06/22/2016 Hepatic Rhh327 ALT(SGPT) 30 U/L 06/22/2016 Hepatic Bro628 AST(SGOT) 24 U/L 06/22/2016 Hepatic Pee126 BILI T 1.1 mg/dL 06/22/2016 Hepatic Tip574 BILI D 0.2 mg/dL 06/22/2016 Hepatic Wmf287 BILI I 0.9 mg/dL 06/22/2016 Comp Metabolic Kyr538 NA 139 mEq/L 06/14/2016 Comp Metabolic Iof778 K 4.6 mEq/L 06/14/2016 Comp Metabolic Wqx628 CL 108 mEq/L 06/14/2016 Comp Metabolic Tdy477 CO2 22.0 mEq/L 06/14/2016 Comp Metabolic Qey690 ANION GAP 14 06/14/2016 Comp Metabolic Xnv700 GLUCOSE 114 mg/dL 06/14/2016 Comp Metabolic Yrs495 Creat 1.2 mg/dL 06/14/2016 Comp Metabolic Sus857 eGFR 48 ml/min/1.73m2 06/14/2016 Comp Metabolic Vel366 BUN 24 mg/dL 06/14/2016 Comp Metabolic Dxf406 B/C Ratio 20.9 Ratio 06/14/2016 Comp Metabolic Zgx188 CALCIUM 9.9 mg/dL 06/14/2016 Comp Metabolic Akv587 ALK PHOS 47 U/L 06/14/2016 Comp Metabolic Nbt062 AST(SGOT) 28 U/L 06/14/2016 Comp Metabolic Apk573 ALT(SGPT) 32 U/L 06/14/2016 Comp Metabolic Vci532 BILI T 0.9 mg/dL 06/14/2016 Comp Metabolic Hik966 ALBUMIN 4.1 g/dL 06/14/2016 Comp Metabolic Blg269 TPRO 6.9 g/dL 06/14/2016 Comp Metabolic Rhl745 GLOB 2.8 g/dL 06/14/2016 Comp Metabolic Oft793 A/G Ratio 1.5 Ratio 06/14/2016 Comp Metabolic Lwi218 Osmo 282 mOsmo 06/14/2016 Tsh Ord6 hTSH II 1.26 uIU/mL 06/14/2016 Free T4 Ecf777 FREE T4 1.09 ng/dL 06/14/2016 Tsh Ord6 hTSH II 0.28 uIU/mL 02/02/2016 Digoxin Ord9 DIGOXIN 0.7 NG/ML 02/02/2016 Free T4 Cty834 FREE T4 1.23 ng/dL 02/02/2016 Hepatic Qqc028 ALBUMIN 4.0 g/dL 02/02/2016 Hepatic Zmb097 TPRO 7.0 g/dL 02/02/2016 Hepatic Tkt235 GLOB 3.0 g/dL 02/02/2016 Hepatic Gii509 A/G Ratio 1.3 Ratio 02/02/2016 Hepatic Hjg365 ALK PHOS 57 U/L 02/02/2016 Hepatic Iag734 ALT(SGPT) 62 U/L 02/02/2016 Hepatic Tfr268 AST(SGOT) 54 U/L 02/02/2016 Hepatic Jpc215 BILI T 0.8 mg/dL 02/02/2016 Hepatic Yxt976 BILI D 0.2 mg/dL 02/02/2016 Hepatic Uyb235 BILI I 0.6 mg/dL 02/02/2016 Urine Culture Ucult Preliminary No Growth Day 1 11/25/2015 Urine Culture Ucult Complete No Growth Day 2 11/25/2015 Hepatic Kcn749 ALBUMIN 3.9 g/dL 11/11/2015 Hepatic Foj358 TPRO 7.0 g/dL 11/11/2015 Hepatic Qbs909 GLOB 3.1 g/dL 11/11/2015 Hepatic Fmd241 A/G Ratio 1.3 Ratio 11/11/2015 Hepatic Zds306 ALK PHOS 63 U/L 11/11/2015 Hepatic Wef693 ALT(SGPT) 107 U/L 11/11/2015 Hepatic You314 AST(SGOT) 101 U/L 11/11/2015 Hepatic Khd993 BILI T 0.6 mg/dL 11/11/2015 Hepatic Xfg711 BILI D 0.1 mg/dL 11/11/2015 Hepatic Lkw991 BILI I 0.5 mg/dL 11/11/2015 Comp Metabolic Efb539 NA 138 mEq/L 10/29/2015 Comp Metabolic Ash547 K 5.0 mEq/L 10/29/2015 Comp Metabolic Qvp207 CL 105 mEq/L 10/29/2015 Comp Metabolic Oat233 CO2 23.0 mEq/L 10/29/2015 Comp Metabolic Wyl366 ANION GAP 15 10/29/2015 Comp Metabolic Dto543 GLUCOSE 105 mg/dL 10/29/2015 Comp Metabolic Vbg049 Creat 1.0 mg/dL 10/29/2015 Comp Metabolic Kzm568 eGFR 55 ml/min/1.73m2 10/29/2015 Comp Metabolic Gbe972 BUN 20 mg/dL 10/29/2015 Comp Metabolic Pst772 B/C Ratio 19.4 Ratio 10/29/2015 Comp Metabolic Pgz735 CALCIUM 8.8 mg/dL 10/29/2015 Comp Metabolic Qul245 ALK PHOS 56 U/L 10/29/2015 Comp Metabolic Fmm111 AST(SGOT) 66 U/L 10/29/2015 Comp Metabolic Tal794 ALT(SGPT) 78 U/L 10/29/2015 Comp Metabolic Zni535 BILI T 0.7 mg/dL 10/29/2015 Comp Metabolic Qni715 ALBUMIN 3.6 g/dL 10/29/2015 Comp Metabolic Cdq279 TPRO 6.6 g/dL 10/29/2015 Comp Metabolic Cmx892 GLOB 3.0 g/dL 10/29/2015 Comp Metabolic Fte628 A/G Ratio 1.2 Ratio 10/29/2015 Comp Metabolic Tyt548 Osmo 279 mOsmo 10/29/2015 Comp Metabolic Wbs226 NA 136 mEq/L 09/03/2015 Comp Metabolic Yzz829 K 4.4 mEq/L 09/03/2015 Comp Metabolic Trj381 CL 103 mEq/L 09/03/2015 Comp Metabolic Nkz165 CO2 24.0 mEq/L 09/03/2015 Comp Metabolic Ndd654 ANION GAP 13 09/03/2015 Comp Metabolic Fjl615 GLUCOSE 87 mg/dL 09/03/2015 Comp Metabolic Din286 Creat 1.1 mg/dL 09/03/2015 Comp Metabolic Zkz680 eGFR 53 ml/min/1.73m2 09/03/2015 Comp Metabolic Msa779 BUN 17 mg/dL 09/03/2015 Comp Metabolic Mig451 B/C Ratio 16.2 Ratio 09/03/2015 Comp Metabolic Iil366 CALCIUM 9.0 mg/dL 09/03/2015 Comp Metabolic Guw010 ALK PHOS 55 U/L 09/03/2015 Comp Metabolic Beq227 AST(SGOT) 83 U/L 09/03/2015 Comp Metabolic Ykx695 ALT(SGPT) 126 U/L 09/03/2015 Comp Metabolic Imc971 BILI T 0.9 mg/dL 09/03/2015 Comp Metabolic Beb975 ALBUMIN 3.9 g/dL 09/03/2015 Comp Metabolic Iui971 TPRO 6.8 g/dL 09/03/2015 Comp Metabolic Zzi002 GLOB 2.9 g/dL 09/03/2015 Comp Metabolic Bhb497 A/G Ratio 1.4 Ratio 09/03/2015 Comp Metabolic Xbr577 Osmo 273 mOsmo 09/03/2015 Total T3 Ord42 TT3 0.6 ng/ml 07/09/2015 Tsh Ord6 hTSH II 1.62 uIU/mL 07/09/2015 Total T3 Ord42 TT3 0.5 ng/ml 04/02/2015 Free T4 Eeo088 FREE T4 1.23 ng/dL 04/02/2015 Tsh Ord6 [...] Procedure Codes Date THER/PROPH/DIAG INJ SC/IM CPT-4: 58401 05/24/2018 THER/PROPH/DIAG INJ SC/IM CPT-4: 40849 05/09/2018 THER/PROPH/DIAG INJ SC/IM CPT-4: 74567 04/26/2018 VITAMIN B12 INJECTION CPT- 4: J3420 04/26/2018 THER/PROPH/DIAG INJ SC/IM CPT-4: 27449 04/12/2018 THER/PROPH/DIAG INJ SC/IM CPT-4: 13829 03/30/2018 THER/PROPH/DIAG INJ SC/IM CPT-4: 69674 03/16/2018 VITAMIN B12 INJECTION CPT- 4: J3420 03/16/2018 ADMIN INFLUENZA VIRUS VAC CPT-4: G0008 03/16/2018 FLU VACC PRSV FREE INC ANTIG Formatting Model/CDA Sections, Assigned to/Nga Ojeda CPT-4: 55592Mfplbhb 03/16/2018 THER/PROPH/DIAG INJ SC/IM CPT-4: 40240 03/02/2018 THER/PROPH/DIAG INJ SC/IM CPT-4: 64457 02/08/2018 THER/PROPH/DIAG INJ SC/IM CPT-4: 79745 01/24/2018 THER/PROPH/DIAG INJ SC/IM CPT-4: 36789 01/10/2018 THER/PROPH/DIAG INJ SC/IM CPT-4: 16080 12/27/2017 VITAMIN B12 INJECTION CPT- 4: J3420 12/27/2017 THER/PROPH/DIAG INJ SC/IM CPT-4: 03193 12/12/2017 THER/PROPH/DIAG INJ SC/IM CPT-4: 21715 12/01/2017 VITAMIN B12 INJECTION CPT- 4: J3420 12/01/2017 THER/PROPH/DIAG INJ SC/IM CPT-4: 78306 11/17/2017 THER/PROPH/DIAG INJ SC/IM CPT-4: 97839 11/02/2017 THER/PROPH/DIAG INJ SC/IM CPT-4: 82109 10/20/2017 THER/PROPH/DIAG INJ SC/IM CPT-4: 37716 10/06/2017 THER/PROPH/DIAG INJ SC/IM CPT-4: 93007 09/21/2017 TRIAMCINOLONE ACET INJ NOS CPT-4: J3301 09/15/2017 THER/PROPH/DIAG INJ SC/IM CPT-4: 10730 09/07/2017 THER/PROPH/DIAG INJ SC/IM CPT-4: 32042 08/24/2017 THER/PROPH/DIAG INJ SC/IM CPT-4: 78934 07/06/2017 THER/PROPH/DIAG INJ SC/IM CPT-4: 70941 06/20/2017 TRIAMCINOLONE ACET INJ NOS CPT-4: J3301 06/20/2017 PPPS, SUBSEQ VISIT CPT- 4: G0439 06/05/2017 THER/PROPH/DIAG INJ SC/IM CPT-4: 57956 06/05/2017 THER/PROPH/DIAG INJ SC/IM CPT-4: 35327 05/25/2017 VITAMIN B12 INJECTION CPT- 4: J3420 05/25/2017 THER/PROPH/DIAG INJ SC/IM CPT-4: 69919 05/16/2017 THER/PROPH/DIAG INJ SC/IM CPT-4: 24159 05/01/2017 THER/PROPH/DIAG INJ SC/IM CPT-4: 72200 04/18/2017 THER/PROPH/DIAG INJ SC/IM CPT-4: 11875 04/06/2017 ADMIN INFLUENZA VIRUS VAC CPT-4: G0008 03/22/2017 FLU VACC PRSV FREE INC ANTIG CPT-4: 84046 03/22/2017 THER/PROPH/DIAG INJ SC/IM CPT-4: 84200 03/09/2017 THER/PROPH/DIAG INJ SC/IM CPT-4: 09863 02/23/2017 THER/PROPH/DIAG INJ SC/IM CPT-4: 60397 02/09/2017 THER/PROPH/DIAG INJ SC/IM CPT-4: 45677 01/23/2017 THER/PROPH/DIAG INJ SC/IM CPT-4: 62581 01/10/2017 THER/PROPH/DIAG INJ SC/IM CPT-4: 60188 12/28/2016 THER/PROPH/DIAG INJ SC/IM CPT-4: 41109 12/14/2016 THER/PROPH/DIAG INJ SC/IM CPT-4: 48315 11/24/2016 URINALYSIS NONAUTO W/O SCOPE CPT-4: 71918 11/07/2016 THER/PROPH/DIAG INJ SC/IM CPT-4: 51076 11/07/2016 THER/PROPH/DIAG INJ SC/IM CPT-4: 41668 10/24/2016 THER/PROPH/DIAG INJ SC/IM CPT-4: 61867 09/29/2016 THER/PROPH/DIAG INJ SC/IM CPT-4: 20675 08/29/2016 THER/PROPH/DIAG INJ SC/IM CPT-4: 14185 08/04/2016 THER/PROPH/DIAG INJ SC/IM CPT-4: 23224 07/21/2016 THER/PROPH/DIAG INJ SC/IM CPT-4: 98549 07/05/2016 THER/PROPH/DIAG INJ SC/IM CPT-4: 37647 06/22/2016 URINALYSIS NONAUTO W/O SCOPE CPT-4: 73246 06/22/2016 THER/PROPH/DIAG INJ SC/IM CPT-4: 48778 06/09/2016 PPPS, SUBSEQ VISIT CPT- 4: G0439 05/30/2016 ADMIN PNEUMOCOCCAL VACCINE SNOMED CT: 27603494 CPT-4: G0009 05/25/2016 Pneumococcal Polysaccharide Vaccine, 23-Valent, Ad CPT-4: 37447 05/25/2016 THER/PROPH/DIAG INJ SC/IM CPT-4: 27690 05/25/2016 THER/PROPH/DIAG INJ SC/IM CPT-4: 94712 05/10/2016 TRIAMCINOLONE ACET INJ NOS CPT-4: J3301 04/26/2016 VITAMIN B12 INJECTION CPT- 4: J3420 04/26/2016 THER/PROPH/DIAG INJ SC/IM CPT-4: 76103 04/11/2016 THER/PROPH/DIAG INJ SC/IM CPT-4: 76388 03/31/2016 ADMIN INFLUENZA VIRUS VAC CPT-4: G0008 03/15/2016 FLU VACC 4 STEPHANIE [address] YRS PLUS IM SNOMED CT: 78714217 CPT-4: 35999 03/15/2016 THER/PROPH/DIAG INJ SC/IM CPT-4: 54925 02/25/2016 THER/PROPH/DIAG INJ SC/IM CPT-4: 60729 02/02/2016 THER/PROPH/DIAG INJ SC/IM CPT-4: 21171 01/18/2016 VITAMIN B12 INJECTION CPT- 4: J3420 12/29/2015 THER/PROPH/DIAG INJ SC/IM CPT-4: 12582 12/29/2015 THER/PROPH/DIAG INJ SC/IM CPT-4: 76066 12/08/2015 THER/PROPH/DIAG INJ SC/IM CPT-4: 71838 11/23/2015 URINALYSIS NONAUTO W/O SCOPE CPT-4: 40637 11/23/2015 THER/PROPH/DIAG INJ SC/IM CPT-4: 53469 11/11/2015 THER/PROPH/DIAG INJ SC/IM CPT-4: 41796 10/29/2015 THER/PROPH/DIAG INJ SC/IM CPT-4: 13625 10/12/2015 VITAMIN B12 INJECTION CPT- 4: J3420 10/12/2015 THER/PROPH/DIAG INJ SC/IM CPT-4: 04967 09/29/2015 THER/PROPH/DIAG INJ SC/IM CPT-4: 04418 09/17/2015 THER/PROPH/DIAG INJ SC/IM CPT-4: 18727 09/03/2015 THER/PROPH/DIAG INJ SC/IM CPT-4: 26233 08/17/2015 THER/PROPH/DIAG INJ SC/IM CPT-4: 87104 08/06/2015 THER/PROPH/DIAG INJ SC/IM CPT-4: 39280 07/22/2015 THER/PROPH/DIAG INJ SC/IM CPT-4: 38249 07/08/2015 THER/PROPH/DIAG INJ SC/IM CPT-4: 78700 06/23/2015 THER/PROPH/DIAG INJ SC/IM CPT-4: 89727 06/08/2015 THER/PROPH/DIAG INJ SC/IM CPT-4: 28746 05/27/2015 DESTRUCT PREMALG LESION CPT-4: 74449 05/19/2015 DESTRUCT PREMALG LES 2-14 CPT-4: 42514 05/19/2015 THER/PROPH/DIAG INJ SC/IM CPT-4: 72016 05/12/2015 VITAMIN B12 INJECTION CPT- 4: J3420 05/12/2015 THER/PROPH/DIAG INJ SC/IM CPT-4: 20223 04/30/2015 VITAMIN B12 INJECTION CPT- 4: J3420 04/30/2015 THER/PROPH/DIAG INJ SC/IM CPT-4: 85184 04/16/2015 THER/PROPH/DIAG INJ SC/IM CPT-4: 07272 04/02/2015 VITAMIN B12 INJECTION CPT- 4: J3420 04/02/2015 THER/PROPH/DIAG INJ SC/IM CPT-4: 60216 03/18/2015 THER/PROPH/DIAG INJ SC/IM CPT-4: 92819 03/03/2015 THER/PROPH/DIAG INJ SC/IM CPT-4: 06154 02/18/2015 THER/PROPH/DIAG INJ SC/IM CPT-4: 42088 02/04/2015 VITAMIN B12 INJECTION CPT- 4: J3420 02/04/2015 THER/PROPH/DIAG INJ SC/IM CPT-4: 72772 01/22/2015 THER/PROPH/DIAG INJ SC/IM CPT-4: 75525 01/08/2015 VITAMIN B12 INJECTION CPT- 4: J3420 01/08/2015 THER/PROPH/DIAG INJ SC/IM CPT-4: 38238 12/25/2014 VITAMIN B12 INJECTION CPT- 4: J3420 12/25/2014 THER/PROPH/DIAG INJ SC/IM CPT-4: 74075 12/10/2014 VITAMIN B12 INJECTION CPT- 4: J3420 12/10/2014 THER/PROPH/DIAG INJ SC/IM CPT-4: 15344 11/26/2014 VITAMIN B12 INJECTION CPT- 4: J3420 11/26/2014 THER/PROPH/DIAG INJ SC/IM CPT-4: 21965 11/12/2014 VITAMIN B12 INJECTION CPT- 4: J3420 11/12/2014 THER/PROPH/DIAG INJ SC/IM CPT-4: 31315 10/28/2014 Vital Signs Date Vital 05/03/2018 Blood Pressure 1: 140/70 Code: 8480-6 BMI: 26.0 Code: 06785-3 Heart Rate 1: 70 bpm Height: 5'6" SpO2: 94% Weight: 161 lbs 04/26/2018 Height: 5'6" 02/26/2018 Blood Pressure 1: 130/72 Code: 8480-6 BMI: 27.9 Code: 71196-9 Heart Rate 1: 72 bpm Height: 5'6" SpO2: 93% Weight: 173 lbs 12/12/2017 Blood Pressure 1: 126/74 Code: 8480-6 BMI: 27.4 Code: 76147-1 Heart Rate 1: 83 bpm Height: 5'6" SpO2: 98% Weight: 170 lbs 12/04/2017 Blood Pressure 1: 104/68 Code: 8480-6 BMI: 28.2 Code: 71407-2 Heart Rate 1: 85 bpm Height: 5'6" SpO2: 95% Weight: 175 lbs 11/20/2017 Blood Pressure 1: 130/68 Code: 8480-6 BMI: 28.4 Code: 45023-5 Heart Rate 1: 80 bpm Height: 5'6" SpO2: 99% Weight: 176 lbs 11/02/2017 Height: 5'6" 09/15/2017 Blood Pressure 1: 134/74 Code: 8480-6 BMI: 28.4 Code: 28828-1 Heart Rate 1: 88 bpm Height: 5'6" SpO2: 98% Weight: 176 lbs 09/07/2017 Blood Pressure 1: 124/64 Code: 8480-6 Heart Rate 1: 90 bpm Height: SpO2: 97% Weight: 08/30/2017 Blood Pressure 1: 140/76 Code: 8480-6 BMI: 28.4 Code: 54725-2 Heart Rate 1: 90 bpm Height: 5'6" SpO2: 94% Weight: 176 lbs 07/06/2017 Blood Pressure 1: 132/66 Code: 8480-6 BMI: 29.4 Code: 03512-5 Heart Rate 1: 85 bpm Height: 5'6" SpO2: 97% Weight: 182 lbs 06/20/2017 Blood Pressure 1: 134/86 Code: 8480-6 Heart Rate 1: 90 bpm Height: SpO2: 98% Weight: 06/05/2017 BMI: 29.1 Code: 37609-7 Height: 5'6" Weight: 180 lbs 05/25/2017 Blood Pressure 1: 126/76 Code: 8480-6 BMI: 29.1 Code: 97225-6 Heart Rate 1: 77 bpm Height: 5'6" SpO2: 97% Weight: 180 lbs 03/23/2017 Blood Pressure 1: 142/84 Code: 8480-6 BMI: 29.1 Code: 35030-8 Heart Rate 1: 91 bpm Height: 5'6" SpO2: 97% Weight: 180 lbs 01/23/2017 Blood Pressure 1: 150/90 Code: 8480-6 BMI: 29.9 Code: 99784-1 Heart Rate 1: 81 bpm Height: 5'6" SpO2: 97% Weight: 185 lbs 11/02/2016 Blood Pressure 1: 148/78 Code: 8480-6 BMI: 29.7 Code: 90332-5 Heart Rate 1: 87 bpm Height: 5'6" SpO2: 97% Weight: 184 lbs 09/29/2016 Blood Pressure 1: 128/78 Code: 8480-6 BMI: 29.7 Code: 32902-9 Heart Rate 1: 78 bpm Height: 5'6" SpO2: 98% Weight: 184 lbs 07/26/2016 Blood Pressure 1: 138/72 Code: 8480-6 BMI: 30.0 Code: 19041-4 Heart Rate 1: 85 bpm Height: 5'6" SpO2: 97% Weight: 186 lbs 05/30/2016 Blood Pressure 1: 132/76 Code: 8480-6 BMI: 30.0 Code: 07293-0 Heart Rate 1: 80 bpm Height: 5'6" SpO2: 98% Waist Measure (cm): 99 cm Weight: 186 lbs 05/25/2016 Blood Pressure 1: 132/76 Code: 8480-6 BMI: 30.0 Code: 64688-6 Heart Rate 1: 80 bpm Height: 5'6" SpO2: 96% Weight: 186 lbs 02/25/2016 Blood Pressure 1: 110/64 Code: 8480-6 Heart Rate 1: 82 bpm Height: SpO2: 96% Weight: 01/25/2016 Blood Pressure 1: 118/70 Code: 8480-6 BMI: 30.0 Code: 13400-1 Heart Rate 1: 78 bpm Height: 5'6" SpO2: 97% Weight: 186 lbs 11/11/2015 Blood Pressure 1: 128/82 Code: 8480-6 BMI: 29.2 Code: 68595-5 Heart Rate 1: 86 bpm Height: 5'6" SpO2: 96% Temperature: 36.4 (C) / 97.6 (F) Weight: 181 lbs 10/12/2015 Blood Pressure 1: 118/70 Code: 8480-6 BMI: 29.2 Code: 73444-2 Heart Rate 1: 81 bpm Height: 5'6" SpO2: 95% Weight: 181 lbs 09/03/2015 Blood Pressure 1: 138/78 Code: 8480-6 BMI: 29.9 Code: 64308-2 Heart Rate 1: 88 bpm Height: 5'6" SpO2: 97% Weight: 185 lbs 05/19/2015 Blood Pressure 1: 146/78 Code: 8480-6 BMI: 30.0 Code: 26371-6 Heart Rate 1: 66 bpm Height: 5'6" SpO2: 97% Weight: 186 lbs 05/12/2015 Blood Pressure 1: 120/70 Code: 8480-6 BMI: 29.9 Code: 55789-9 Heart Rate 1: 89 bpm Height: 5'6" SpO2: 95% Weight: 185 lbs 01/13/2015 Blood Pressure 1: 140/90 Code: 8480-6 BMI: 30.3 Code: 38981-7 Heart Rate 1: 84 bpm Height: 5'6" SpO2: 95% Weight: 188 lbs 12/16/2014 Blood Pressure 1: 140/82 Code: 8480-6 BMI: 29.5 Code: 91492-3 Heart Rate 1: 86 bpm Height: 5'6" [...] data Encounters Encounter Performer Location Codes Date ([id number]) 30656 EST. PATIENT, LEVEL IV Diagnosis: Essential (primary) hypertension[ICD10: I10] Diagnosis: Type 2 diabetes mellitus without complications[ICD10: E11.9] [facility] CPT-4: 69222 05/03/2018 ([id number]) 17360 EST. PATIENT, LEVEL III Diagnosis: Pain in left shoulder[ICD10: M25.512] Diagnosis: Pain in right shoulder[ICD10: M25.511] Yarely Vega MD, [facility] CPT-4: 27187 02/26/2018 ([id number]) 25431 EST. PATIENT, LEVEL III Diagnosis: Nausea[ICD10: R11.0] Diagnosis: Cough[ICD10: R05] Diagnosis: 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 factor deficiency[ICD10: D51.0] Janet Vega MD, [facility] CPT-4: 09613 12/12/2017 ([id number]) 30882 EST. PATIENT, LEVEL IV Diagnosis: Acute bronchitis due to Hemophilus influenzae[ICD10: J20.1] Diagnosis: Cough[ICD10: R05] Yarely Vega MD, [facility] CPT-4: 63584 12/04/2017 ([id number]) 51020 EST. PATIENT, LEVEL IV Diagnosis: Essential (primary) hypertension[ICD10: I10] Diagnosis: Cough[ICD10: R05] Diagnosis: Chronic atrial fibrillation[ICD10: I48.2] Yarely Vega MD, [facility] CPT-4: 31841 11/20/2017 ([id number]) 63533 EST. PATIENT, LEVEL III Diagnosis: Cough[ICD10: R05] Diagnosis: Acute upper respiratory infection, unspecified[ICD10: J06.9] Janet Vega MD, [facility] CPT-4: 79536 09/15/2017 [id number] EST. PATIENT, LEVEL III Diagnosis: Laceration without foreign body of right forearm, initial encounter[ICD10: S51.811A] Diagnosis: Other vitamin B12 deficiency anemias[ICD10: D51.8] Brianna Vega MD, [facility] CPT-4: 95913 09/07/2017 ([id number]) 13691 EST. PATIENT, LEVEL IV Diagnosis: Chronic atrial fibrillation[ICD10: I48.2] Diagnosis: Other allergic rhinitis[ICD10: J30.89] Diagnosis: Encounter for therapeutic drug level monitoring[ICD10: Z51.81] Yarely Vega MD, [facility] CPT-4: 58577 08/30/2017 ([id number]) 20182 EST. PATIENT, LEVEL IV Diagnosis: Atrophy of thyroid (acquired)[ICD10: E03.4] Diagnosis: Cough[ICD10: R05] Diagnosis: Laceration without foreign body of left forearm, initial encounter[ICD10: S51.812A] Diagnosis: Candidiasis of skin and nail[ICD10: B37.2] Diagnosis: Other vitamin B12 deficiency anemias[ICD10: D51.8] Diagnosis: Slow transit constipation[ICD10: K59.01] Yarely Vega MD, [facility] CPT-4: 82660 07/06/2017 83974 EST. PATIENT, LEVEL III Diagnosis: Other vitamin B12 deficiency anemias[ICD10: D51.8] Diagnosis: Acute laryngopharyngitis[ICD10: J06.0] Diagnosis: Other allergic rhinitis[ICD10: J30.89] Brianna Vega MD, [facility] CPT- 4: 51570 06/20/2017 [id number]) 75323 EST. PATIENT, LEVEL IV Diagnosis: Essential (primary) hypertension[ICD10: I10] Diagnosis: Chronic atrial fibrillation[ICD10: I48.2] Diagnosis: Atrophy of thyroid (acquired)[ICD10: E03.4] Diagnosis: 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 factor deficiency[ICD10: D51.0] Yarely Vega MD, [facility] CPT-4: 58196 05/25/2017 [id number]) 79098 EST. 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 PATIENT, LEVEL IV Diagnosis: Type 2 diabetes mellitus without complications[ICD10: E11.9] Diagnosis: Essential (primary) hypertension[ICD10: I10] Diagnosis: Headache[ICD10: R51] Diagnosis: Atrophy of thyroid (acquired)[ICD10: E03.4] Diagnosis: Vitamin B12 deficiency anemia, unspecified[ICD10: D51.9] Yarely Vega MD, [facility] CPT-4: 88964 01/23/2017 [id number] EST. PATIENT, LEVEL III Diagnosis: Low back pain[ICD10: M54.5] Diagnosis: Pain in thoracic spine[ICD10: M54.6] Brianna Vega MD, [facility] CPT- 4: 19519 11/02/2016 ([id number]) 18633 EST. PATIENT, LEVEL IV Diagnosis: Essential (primary) hypertension[ICD10: I10] Diagnosis: Other vitamin B12 deficiency anemias[ICD10: D51.8] Diagnosis: Generalized abdominal pain[ICD10: R10.84] Yarely Vega MD [facility] CPT-4: 77477 09/29/2016 ([id number]) 46167 EST. PATIENT, LEVEL IV Diagnosis: Essential (primary) hypertension[ICD10: I10] Yarely Vega MD [facility] CPT-4: 28168 07/26/2016 ([id number]) 20119 EST. PATIENT, LEVEL IV Diagnosis: Benign lipomatous neoplasm of skin and subcutaneous tissue of right leg[ICD10: D17.23] Diagnosis: Pain in right ankle and joints of right foot[ICD10: M25.571] Diagnosis: Encounter for immunization[ICD10: Z23] Diagnosis: Vitamin B12 deficiency anemia, unspecified[ICD10: D51.9] Yarely Vega MD [facility] CPT-4: 28636 05/25/2016 93051 EST. PATIENT, LEVEL III Diagnosis: Other chest pain[ICD10: R07.89] Diagnosis: Other vitamin B12 deficiency anemias[ICD10: D51.8] Brianna Vega MD [facility] CPT-4: 85870 02/25/2016 ([id number]) 88897 EST. 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 PATIENT, LEVEL III Diagnosis: Other vitamin B12 deficiency anemias[ICD10: D51.8] Diagnosis: Acute nasopharyngitis [common cold][ICD10: J00] Diagnosis: Other allergic rhinitis[ICD10: J30.89] Brianna Vega MD, [facility] CPT- 4: 00109 11/11/2015 ([id number]) 01620 EST. PATIENT, LEVEL IV Diagnosis: Essential tremor[ICD10: G25.0] Diagnosis: Chronic fatigue, unspecified[ICD10: R53.82] Diagnosis: Other hypersomnia[ICD10: G47.19] Diagnosis: Essential (primary) hypertension[ICD10: I10] Yarely Vega MD, [facility] CPT-4: 64385 10/12/2015 ([id number]) 39559 EST. PATIENT, LEVEL IV Diagnosis: Essential (primary) hypertension[ICD10: I10] Diagnosis: Chronic atrial fibrillation[ICD10: I48.2] Diagnosis: Abnormal levels of other serum enzymes[ICD10: R74.8] Diagnosis: Type 2 diabetes mellitus without complications[ICD10: E11.9] Diagnosis: Vitamin B12 deficiency anemia, unspecified[ICD10: D51.9] Yarely Vega MD, [facility] CPT-4: 05303 09/03/2015 ([id number]) 36763 EST. PATIENT, LEVEL III Diagnosis: Nausea[ICD10: R11.0] Diagnosis: Essential tremor[ICD10: G25.0] Diagnosis: Actinic keratosis[ICD10: L57.0] Yarely Vega MD, [facility] CPT-4: 68250 05/19/2015 ([id number]) 97625 EST. PATIENT, LEVEL IV Diagnosis: Vitamin B12 deficiency anemia, unspecified[ICD10: D51.9] Diagnosis: Chronic atrial fibrillation[ICD10: I48.2] Diagnosis: Headache[ICD10: R51] Diagnosis: Chronic fatigue, unspecified[ICD10: R53.82] Diagnosis: Cervicalgia[ICD10: M54.2] Yarely Vega MD, [facility] CPT-4: 45139 05/12/2015 ([id number] 39780 EST. PATIENT, LEVEL IV Diagnosis: ESSENTIAL HYPERTENSION[ICD9: 401.9] Diagnosis: Afib[ICD9: 427.31] Diagnosis: Anxiety[ICD9: 300.00] Diagnosis: Insomnia[ICD9: 780.52] [facility] CPT-4: 71133 01/13/2015 ([id number]) OFFICE VISIT, NEW - LEVEL 4 Diagnosis: Hypothyroidism[ICD9: 244.9] Diagnosis: DIABETES TYPE II[ICD9: 250.00] Diagnosis: ESSENTIAL HYPERTENSION[ICD9: 401.9] Diagnosis: Afib[ICD9: 427.31] Diagnosis: Anxiety[ICD9: 300.00] Diagnosis: B12 deficiency[ICD9: 266.2] [facility] CPT-4: 53490 12/16/2014 Plan of Care Planned Activity Notes Codes Status Date Patient Education: Patient Medication Summary Completed 05/24/2018 [...] restart flonase 05/03/2018 Appointment: [phone] (15 min) Moderate 05/03/2018 Patient Education: Patient [...] Completed 03/08/2018 Referral: Car Cat with Mateo Joel Completed 03/05/2018 Appointment: Injection 03/02/2018 Patient Education: Patient Medication Summary Completed 03/02/2018 Visit Plan: Shoulder pain - suspect a tendon rupture or partial tear - referral to dr cat for shoulder injections - pt is not interested in surgical intervention. 02/26/2018 Appointment: Yarely Vega WPtel: [phone] [place] (15 min) Moderate 02/26/2018 Patient Education: Patient Medication Summary Completed 02/26/2018 Care Plan: Referral Order SNOMED-CT : [id number] Pending 02/26/2018 Appointment: Injection 02/08/2018 Patient Education: Patient Medication Summary Completed 02/08/2018 Appointment: Injection 01/24/2018 Patient Education: Patient Medication Summary Completed 01/24/2018 Appointment: Injection 01/10/2018 Patient Education: Patient Medication Summary Completed 01/10/2018 Appointment: Injection 12/27/2017 Patient Education: Patient Medication Summary Completed 12/27/2017 Appointment: Yarely Vega WPtel: [phone] [place] (15 min) Moderate 12/26/2017 Visit Plan: Kxfzlk-warvwrxff-dkdjlzqq protonix-follow up with Dr Navarro as scheduled Cough-recent bronchitis-symptoms improved-call if symptoms do not completely resolve 12/12/2017 Appointment: Janet Fam WPtel: [phone] [phone] [place] (15 min) Moderate 12/12/2017 [...] cough medication. 12/04/2017 Appointment: [facility] [place] ([facility] min) Moderate 12/04/2017 Patient Education: [...] Fatigue/malaise -Pt was advsied to ask the Herbicide Sprayer the following: ask the heart doctor if [...] becoming uncontrolled. 11/20/2017 Appointment: [phone] [place] (15 min) Moderate 11/20/2017 Patient Education: [...] any worse. 09/15/2017 [phone] [place] (15 min) Moderate 09/15/2017 Patient Education: Patient Medication Summary Completed 09/15/2017 Appointment: Yarely Vega WPtel: [phone] [place] (15 min) Moderate 09/11/2017 Visit Plan: Skin tear and Cellulitis - The patient was instructed in appropriate wound care. The patient was instructed to use the antibiotic ointment as per RX. The patient is to call for any change in symptoms, increase in size of the lesion, increase in pain, worsening redness, warmth, discharge. 09/07/2017 Appointment: Brianna Otoole WPtel: [phone] [place] (10 min) Simple 09/07/2017 Patient Education: Patient Medication Summary Completed 09/07/2017 Visit Plan: Lipoma - left ankle - talk to dr. barnes about possible surgery/laser for treatment of lipoma. Fatigue/malaise -Pt was advsied to ask the Herbicide Sprayer the following: ask the heart doctor if there is an alternative to the amiodarone - you may be having side effects from the medication causing you to have pruritus (itching) and feeling like you have body aches, muscle aches, joint pain, fatigue, weight loss (decreased appetite), and pneumonia like symptoms. Congestion - claritin 10mg daily. 08/30/2017 Appointment: Yarely Vega WPtel: [phone] (15 min) Moderate 08/30/2017 Patient Education: Patient Medication Summary Completed 08/30/2017 Appointment: Injection 08/24/2017 Appointment: Yarely Vega WPtel: [phone] [place] (15 min) Moderate 08/24/2017 Patient Education: [...] mucinex 07/06/2017 Appointment: [phone] ([facility] min) Moderate 07/06/2017 Patient Education: Patient [...] spray. 06/20/2017 [phone] ([facility] min) Moderate 06/20/2017 Patient Education: [...] Injection 06/05/2017 [phone] [facility] - Annual Wellness Visit 06/05/2017 Patient [...] q 3 months or q 6 m [facility] based on previous levels of control. 05/25/2017 Appointment: [phone] (15 min) Moderate 05/25/2017 Patient Education: Patient [...] wall. Fatigue - pt to discuss with Herbicide Sprayer about the possibility of amiodarone causing her fatigue/malaise. 03/23/2017 Appointment: [phone] [facility] (15 min) Moderate 03/23/2017 Patient Education: Patient [...] twice daily. 01/23/2017 Appointment: Yarely Vega WPtel[facility] (15 min) Moderate 01/23/2017 Patient Education: Patient [...] improve. 11/02/2016 App[facility]ment: [phone] [place] ([facility] min) Moderate 11/02/2016 Patient [...] carafate 09/29/2016 [facility]ment[phone] [place] ([facility] min) Moderate 09/29/2016 Patient Education: Patient Medication Summary Completed 09/29/2016 Appointment: Yarely Vega WPtel: [phone] [facility] [place] (15 min) Moderate 09/27/2016 Appointment: [phone] [place] ([facility] min) Moderate 09/20/2016 Appointment: [phone] [place] ([place] min) Moderate 09/20/2016 Patient Education: Patient Medication Summary Completed 09/06/2016 Appointment: [phone] [place] (15 min) Moderate 08/30/2016 Appointment: Injection [...] concerns. 07/26/2016 Appointment: [id number] (15 min) Moderate 07/26/2016 Patient Education: Patient [...] surrogate. 05/30/2016 [facility]ment: [phone] [id number] [facility] - Annual Wellness Visit [...] based on previous levels of control. h rheadaaracely - take topamax at bedtime 05/25/2016 Appointment: [facility]arely [facility]ega [phone] (15 min) Moderate 05/25/2016 Patient Education: Patient Medication Summary Completed 05/25/2016 Patient Education: Obesity Completed 05/25/2016 Care Plan: Referral Order SNOMED-CT : [id number] Pending 05/25/2016 Appointment: Injection 05/10/2016 Patient Education: Patient Medication Summary Completed 05/10/2016 Appointment: Injection 04/26/2016 Patient Education: Patient Medication Summary Completed 04/26/2016 Appointment: Injection 04/11/2016 Patient Education: Patient Medication Summary Completed 04/11/2016 Appointment: Injection 03/31/2016 Patient Education: Patient Medication Summary Completed 03/31/2016 Patient Education: Patient Medication Summary Completed 03/22/2016 [facility] Plan[facility] [address]2 Pending 03/22/2016 Appointment: Injection 03/15/2016 Patient Education: [...] concerns. 02/25/2016 Appointment: [phone] [facility] [place] ([facility] min) Moderate 02/25/2016 Patient [...] case with Faiza's daughter who had left [facility]. She is interested in looking at assisted living facilities for her mom as Faiza's family is for assisted living placement sooner rather than later. 10/12/2015 Appointment: Yarely Vega [facility]el[id number] (15 min) Moderate 10/12/2015 Patient Education: Patient [...] Completed 08/17/2015 Appointment: [id number] (15 min) Moderate 08/11/2015 Appointment: Injection 08/06/2015 [...] x 2 05/19/2015 Appointment: Yarely Vega WPtel: [id number] (30 min) Complex 05/19/2015 Patient Education: Patient [...] prn alprazolam. 01/13/2015 Appointment: [facility]are[facility]ega [id number] [place] (15 min) Moderate 01/13/2015 Patient Education: [...] medications. 12/16/2014 Appointment: [phone] [place] ([place] New Patient 12/16/2014 Patient [...] to post-nasal drainage - restart flonase . Iytznk-kbvgtafaz-taqlndiv protonix-follow up with Dr Navarro as scheduled [...] her DOPA paperwork for health care surrogate. ask the heart doctor if there is [...] Fatigue/malaise -Pt was advsied to ask the Herbicide Sprayer the following: ask the heart doctor if [...] in pain, worsening redness, warmth, discharge. . Atrial Fibrillation - pt on chronic [...] Fatigue/malaise -Pt was advsied to ask the Herbicide Sprayer the following: ask the heart doctor if [...] wall. Fatigue - pt to discuss with Herbicide Sprayer about the possibility of amiodarone causing her [...] case with Faiza's daughter who had left [facility]. She is interested in [...] topamax - increase dose to twice daily. increase norvasc from 5mg daily to 10mg [...] pt is to call for acute concerns. liquid or dissolving B12 - 2000 units [...] continue with current treatment plan and mucinex Schedule thyroid ultrasound Add T3 and digoxin [...] - cryotherapy of skin lesions x 2 womens probiotic - take one pill daily. [...]
--- OUTSIDE RECORDS SUMMARY | 2018-12-05 19:50 | XMS REPORT | CCD ---
Author Author [facility] Organization [facility] Address [address] [place] [address] Phone Care Team Providers Care [place] [employer] Supervisor Name Role Phone PP Unavailable CCM Unavailable Summary Purpose Interface Exchange Insurance Providers Payer name Policy type / Coverage type Covered constitution party ID Effective Begin Date Effective End Date WPS Medicare Part B Medicare Part B [id number] Unknown Principal Life Insurance Medicare Part B [id number] Unknown Family history Brother Diagnosis Age At Onset Heart Attack Unknown Mother Diagnosis Age At Onset Hypertension Unknown kidney disease Unknown Stroke Unknown Father Diagnosis Age At Onset Arthritis Unknown Social History Social History Element Codes Description Effective Dates Employment Unknown Retired worked at [email or web address] 11/20/2017 Marital status Unknown Single 12/16/[address]: 0508405 Former smoker 12/16/[address]: 098224230 Never drinks alcohol 12/16/2014 Allergies, Adverse Reactions, Alerts Substance Reaction Codes Entered Date Inactivated Date Status CODEINE RxNorm: 2670 05/25/2016 No Inactive Date Active ciprofloxacin RxNorm: 00984 12/16/2014 No Inactive Date Active MORPHINE SULFATE [...] hydrocodone 5 mg-acetaminophen 325 mg tablet RxNorm: 722202 1-2 Tablet(s) PO Q6 as needed for pain 05/24/2018 06/22/2018 Active cyanocobalamin (vit B-12) 1,000 mcg/mL injection solution RxNorm: 149051 Milliliter(s) Inj 05/09/2018 05/09/2018 Inactive Claritin 10 mg tablet RxNorm: 629791 TAKE 1 TABLET BY MOUTH ONCE DAILY 05/08/2018 05/02/2019 Active Generic For:CLARITIN 10MG 05/07/2018 9:13:47 AM cyanocobalamin (vit B-12) 1,000 mcg/mL injection solution RxNorm: 428607 INJECT ONE 1 ML EVERY TWO WEEKS 05/03/2018 04/03/2019 Active 05/03/2018 9:13:42 AM Mobic 15 mg tablet RxNorm: 586638 Tablet(s) 1 Tablet(s) PO daily 04/26/2018 04/20/2019 Active buspirone 15 mg tablet RxNorm: 761162 Tablet(s) TAKE 1 TABLET BY MOUTH TWICE DAILY 04/26/2018 04/20/2019 Active Generic For:BUSPAR 15MG 05/31/2017 9:19:20 AM Norvasc 5 mg tablet RxNorm: 844681 Tablet(s) 1 Tablet(s) PO daily 04/26/2018 04/20/2019 Active cyanocobalamin (vit B-12) 1,000 mcg/mL injection solution RxNorm: 604348 Milliliter(s) Inj 04/26/2018 04/26/2018 Inactive hydrocodone 5 mg-acetaminophen 325 mg tablet RxNorm: 167532 1-2 Tablet(s) PO Q6 as needed for pain 04/25/2018 05/23/2018 Inactive cyanocobalamin (vit B-12) 1,000 mcg/mL injection solution RxNorm: 595692 Milliliter(s) Inj 04/12/2018 04/12/2018 Inactive Topamax 25 mg tablet RxNorm: 592163 1 Tablet(s) PO BID 04/09/2018 05/02/2018 Inactive Generic For:TOPAMAX 25MG 12/06/2016 9:15:13 AM Zoloft 50 mg tablet RxNorm: 547719 TAKE 1 TABLET BY MOUTH ONCE DAILY 04/04/2018 12/29/2018 Active Generic For:ZOLOFT 50MG 04/04/2018 9:13:25 AM cyanocobalamin (vit B-12) 1,000 mcg/mL injection solution RxNorm: 223325 Milliliter(s) Inj 03/30/2018 03/30/2018 Inactive levothyroxine 125 mcg tablet RxNorm: 241281 TAKE 1 TABLET BY MOUTH EVERY DAY 03/26/2018 09/21/2018 Active Generic For:SYNTHROID 125MCG TAB 03/26/2018 9:15:59 AM liothyronine 5 mcg tablet RxNorm: 847311 TAKE 1 TABLET BY MOUTH TWICE DAILY 03/26/2018 09/21/2018 Active Generic For:CYTOMEL 5MCG 03/26/2018 9:15:54 AM hydrocodone 5 mg-acetaminophen 325 mg tablet RxNorm: 391312 1-2 Tablet(s) PO Q6 as needed for pain 03/19/2018 04/17/2018 Inactive cyanocobalamin (vit B-12) 1,000 mcg/mL injection solution RxNorm: 856503 Milliliter(s) Inj 03/16/2018 03/16/2018 Inactive Flonase Allergy Relief 50 mcg/actuation nasal spray,suspension RxNorm: 6926955 1 [place] NASAL BID 03/05/2018 07/02/2018 Active cyanocobalamin (vit B-12) 1,000 mcg/mL injection solution RxNorm: 429378 Milliliter(s) Inj 03/02/2018 03/02/2018 Inactive alprazolam 0.25 mg tablet RxNorm: 953006 1 Tablet(s) PO BID 02/28/2018 05/28/2018 Active cyanocobalamin (vit B-12) 1,000 mcg/mL injection solution RxNorm: 822442 Milliliter(s) Inj 02/08/2018 02/08/2018 Inactive cyanocobalamin (vit B-12) 1,000 mcg/mL injection solution RxNorm: 559034 Milliliter(s) Inj 01/24/2018 01/24/2018 Inactive albuterol sulfate 2.5 mg/3 mL (0.083 %) solution for nebulization RxNorm: 828332 3 Milliliter(s) INH Q6 PRN 01/24/2018 05/02/2018 Inactive Claritin 10 mg tablet RxNorm: 883863 1 Tablet(s) PO daily 01/15/2018 05/07/2018 Inactive cyanocobalamin (vit B-12) 1,000 mcg/mL injection solution RxNorm: 876755 Milliliter(s) Inj 01/10/2018 01/10/2018 Inactive hydrocodone 5 mg-acetaminophen 325 mg tablet RxNorm: 245926 1-2 Tablet(s) PO Q6 as needed for pain 01/09/2018 02/07/2018 Inactive cyanocobalamin (vit B-12) 1,000 mcg/mL injection solution RxNorm: 891742 Milliliter(s) Inj 12/27/2017 12/27/2017 Inactive cyanocobalamin (vit B-12) 1,000 mcg/mL injection solution RxNorm: 525290 1 Milliliter(s) Inj 12/12/2017 12/12/2017 Inactive Zofran ODT 4 mg disintegrating tablet RxNorm: 104834 1 Tablet(s) PO TID as needed 12/08/2017 12/09/2017 Inactive hydrocodone 2.5 mg-guaifenesin 200 mg/5 mL oral solution RxNorm: 675562 5 Milliliter(s) PO 12/04/2017 05/06/2018 Inactive doxycycline hyclate 100 mg capsule RxNorm: 7906443 1 Capsule(s) PO BID 12/04/2017 12/13/2017 Inactive cyanocobalamin (vit B-12) 1,000 mcg/mL injection solution RxNorm: 026371 Milliliter(s) Inj 12/01/2017 12/01/2017 Inactive Flonase Allergy Relief 50 mcg/actuation nasal spray,suspension RxNorm: 4339092 1 [place] NASAL BID 11/20/2017 2018 Inactive cyanocobalamin (vit B-12) 1,000 mcg/mL injection solution RxNorm: 756713 1 Milliliter(s) Inj 11/17/2017 11/17/2017 Inactive hydrocodone 5 mg-acetaminophen 325 mg tablet RxNorm: 953385 1-2 Tablet(s) PO Q6 as needed for pain 11/16/2017 12/15/2017 Inactive cyanocobalamin (vit B-12) 1,000 mcg/mL injection solution RxNorm: 143914 1 Milliliter(s) Inj 11/02/2017 11/02/2017 Inactive hydrocodone 5 mg-acetaminophen 325 mg tablet RxNorm: 002859 1-2 Tablet(s) PO Q6 as needed for pain 10/25/2017 11/15/2017 Inactive Claritin 10 mg tablet RxNorm: 701978 1 Tablet(s) PO daily 10/25/2017 11/19/2017 Inactive albuterol sulfate 2.5 mg/3 mL (0.083 %) solution for nebulization RxNorm: 801358 3 Milliliter(s) INH Q6 PRN 10/25/2017 01/23/2018 Inactive Claritin 10 mg tablet RxNorm: 982950 1 Tablet(s) PO daily 10/25/2017 10/24/2017 Inactive cyanocobalamin (vit B-12) 1,000 mcg/mL injection solution RxNorm: 554535 1 Milliliter(s) Inj 10/20/2017 10/20/2017 Inactive Zoloft 50 mg tablet RxNorm: 479494 TAKE 1 TABLET BY MOUTH ONCE DAILY 10/13/2017 04/03/2018 Inactive Generic For:ZOLOFT 50MG 10/13/2017 8:59:44 AM cyanocobalamin (vit B-12) 1,000 mcg/mL injection solution RxNorm: 349678 Milliliter(s) Inj 10/06/2017 10/06/2017 Inactive liothyronine 5 mcg tablet RxNorm: 329647 TAKE 1 TABLET BY MOUTH TWICE DAILY 10/03/2017 03/25/2018 Inactive Generic For:CYTOMEL 5MCG 10/03/2017 9:13:38 AM cyanocobalamin (vit B-12) 1,000 mcg/mL injection solution RxNorm: 091835 Milliliter(s) Inj 09/21/2017 09/21/2017 Inactive albuterol sulfate 2.5 mg/3 mL (0.083 %) solution for nebulization RxNorm: 715037 3 Milliliter(s) INH Q6 PRN 09/21/2017 10/24/2017 Inactive hydrocodone 5 mg-acetaminophen 325 mg tablet RxNorm: 813879 1-2 Tablet(s) PO Q6 as needed for pain 09/21/2017 10/20/2017 Inactive Kenalog 40 mg/mL suspension for injection RxNorm: 2147534 Milliliter(s) Inj 09/15/2017 09/15/2017 Inactive Keflex 500 mg capsule RxNorm: 643999 1 Capsule(s) PO TID 09/07/2017 09/16/2017 Inactive Please deliver to patient cyanocobalamin (vit B-12) 1,000 mcg/mL injection solution RxNorm: 020191 Milliliter(s) Inj 09/07/2017 09/07/2017 Inactive Aricept 10 mg tablet RxNorm: 277254 1 Tablet(s) PO daily 09/06/2017 08/31/2018 Active alprazolam 0.25 mg tablet RxNorm: 098369 1 Tablet(s) PO BID 09/06/2017 02/27/2018 Inactive hydrocodone 5 mg-acetaminophen 325 mg tablet RxNorm: 521195 1-2 Tablet(s) PO Q6 as needed for pain 08/24/2017 09/20/2017 Inactive cyanocobalamin (vit B-12) 1,000 mcg/mL injection solution RxNorm: 137944 Milliliter(s) Inj 08/24/2017 08/24/2017 Inactive Norvasc 5 mg tablet RxNorm: 294527 1 Tablet(s) PO daily 08/18/2017 04/25/2018 Inactive nystatin 100,000 unit/gram topical powder RxNorm: 310599 1 Gram(s) TOP QID 08/17/2017 08/26/2017 Inactive hydrocodone 5 mg-acetaminophen 325 mg tablet RxNorm: 472385 1-2 Tablet(s) PO Q6 as needed for pain 07/25/2017 08/23/2017 Inactive Tamiflu 75 mg capsule RxNorm: 055824 1 Capsule(s) PO BID 07/24/2017 12/11/2017 Inactive nystatin 100,000 unit/gram topical powder RxNorm: 074175 1 Gram(s) TOP QID 07/14/2017 07/22/2017 Inactive levothyroxine 125 mcg tablet RxNorm: 460241 Tablet(s) 1 Tablet(s) PO daily 07/10/2017 01/05/2018 Inactive nystatin 100,000 unit/gram topical powder RxNorm: 440712 1 Gram(s) TOP QID 07/06/2017 07/13/2017 Inactive cyanocobalamin (vit B-12) 1,000 mcg/mL injection solution RxNorm: 968401 Milliliter(s) Inj 07/06/2017 07/06/2017 Inactive Kenalog 40 mg/mL suspension for injection RxNorm: 4801622 1 Milliliter(s) Inj 06/20/2017 06/20/2017 Inactive doxycycline hyclate 100 mg capsule RxNorm: 2583897 1 Capsule(s) PO BID 06/20/2017 06/26/2017 Inactive cyanocobalamin (vit B-12) 1,000 mcg/mL injection solution RxNorm: 292795 Milliliter(s) Inj 06/20/2017 06/20/2017 Inactive Keflex 500 mg capsule RxNorm: 629295 1 Capsule(s) PO TID 06/14/2017 06/23/2017 Inactive Please deliver to patient Mobic 15 mg tablet RxNorm: 455504 1 Tablet(s) PO daily 06/14/2017 04/25/2018 Inactive cyanocobalamin (vit B-12) 1,000 mcg/mL injection solution RxNorm: 445229 Milliliter(s) Inj 06/05/2017 06/05/2017 Inactive buspirone 15 mg tablet RxNorm: 114869 TAKE 1 TABLET BY MOUTH TWICE DAILY 05/31/2017 04/25/2018 Inactive Generic For:BUSPAR 15MG 05/31/2017 9:19:20 AM cyanocobalamin (vit B-12) 1,000 mcg/mL injection solution RxNorm: 382764 Milliliter(s) Inj 05/25/2017 05/25/2017 Inactive hydrocodone 5 mg-acetaminophen 325 mg tablet RxNorm: 814304 1-2 Tablet(s) PO Q6 as needed for pain 05/25/2017 06/23/2017 Inactive amiodarone 200 mg tablet RxNorm: 277124 1/2 Tablet(s) PO daily 05/22/2017 No Stop Date Active cardiology decreased to 100mg daily cyanocobalamin (vit B-12) 1,000 mcg/mL injection solution RxNorm: 904878 Milliliter(s) Inj 05/16/2017 05/16/2017 Inactive Zofran ODT 4 mg disintegrating tablet RxNorm: 699986 1 Tablet(s) PO TID as needed 05/03/2017 05/04/2017 Inactive hydrocodone 5 mg-acetaminophen 325 mg tablet RxNorm: 055323 1-2 Tablet(s) PO Q6 as needed for pain 05/01/2017 05/05/2017 Inactive cyanocobalamin (vit B-12) 1,000 mcg/mL injection solution RxNorm: 507518 1 Milliliter(s) Inj 05/01/2017 05/01/2017 Inactive cyanocobalamin (vit B-12) 1,000 mcg/mL injection solution RxNorm: 778381 INJECT ONE 1 ML EVERY TWO WEEKS 04/26/2017 12/04/2018 Active 04/26/2017 9:08:52 AM Zoloft 50 mg tablet RxNorm: 518531 Tablet(s) TAKE 1 TABLET BY MOUTH DAILY 04/25/2017 10/12/2017 Inactive Generic For:ZOLOFT 50MG cyanocobalamin (vit B-12) 1,000 mcg/mL injection solution RxNorm: 783803 Milliliter(s) Inj 04/18/2017 04/18/2017 Inactive liothyronine 5 mcg tablet RxNorm: 394205 1 Tablet(s) PO BID 04/13/2017 10/02/2017 Inactive cyanocobalamin (vit B-12) 1,000 mcg/mL injection solution RxNorm: 856137 Milliliter(s) Inj 04/06/2017 04/06/2017 Inactive hydrocodone 5 mg-acetaminophen 325 mg tablet RxNorm: 466039 1-2 Tablet(s) PO Q6 as needed for pain 04/06/2017 04/10/2017 Inactive cyanocobalamin (vit B-12) 1,000 mcg/mL injection solution RxNorm: 764339 Milliliter(s) Inj 03/22/2017 03/22/2017 Inactive alprazolam 0.25 mg tablet RxNorm: 030210 1 Tablet(s) PO BID 03/17/2017 12/11/2017 Inactive alprazolam 0.25 mg tablet RxNorm: 729861 1 Tablet(s) PO BID 03/16/2017 09/05/2017 Inactive hydrocodone 5 mg-acetaminophen 325 mg tablet RxNorm: 609523 1-2 Tablet(s) PO Q6 as needed for pain 03/09/2017 03/13/2017 Inactive cyanocobalamin (vit B-12) 1,000 mcg/mL injection solution RxNorm: 689401 Milliliter(s) Inj 03/09/2017 03/09/2017 Inactive cyanocobalamin (vit B-12) 1,000 mcg/mL injection solution RxNorm: 576028 Milliliter(s) Inj 02/23/2017 02/23/2017 Inactive cyanocobalamin (vit B-12) 1,000 mcg/mL injection solution RxNorm: 275471 Milliliter(s) Inj 02/09/2017 02/09/2017 Inactive hydrocodone 5 mg-acetaminophen 325 mg tablet RxNorm: 948182 1-2 Tablet(s) PO Q6 as needed for pain 02/08/2017 02/12/2017 Inactive Topamax 25 mg tablet RxNorm: 929740 1 Tablet(s) PO BID 01/23/2017 05/22/2017 Inactive Generic For:TOPAMAX 25MG 12/06/2016 9:15:13 AM cyanocobalamin (vit B-12) 1,000 mcg/mL injection solution RxNorm: 819400 Milliliter(s) Inj 01/23/2017 01/23/2017 Inactive cyanocobalamin (vit B-12) 1,000 mcg/mL injection solution RxNorm: 148078 Milliliter(s) Inj 01/10/2017 01/10/2017 Inactive hydrocodone 5 mg-acetaminophen 325 mg tablet RxNorm: 852825 1-2 Tablet(s) PO Q6 as needed for pain 01/09/2017 01/13/2017 Inactive cyanocobalamin (vit B-12) 1,000 mcg/mL injection solution RxNorm: 528281 1 Milliliter(s) Inj 12/28/2016 12/28/2016 Inactive cyanocobalamin (vit B-12) 1,000 mcg/mL injection solution RxNorm: 882745 Milliliter(s) Inj 12/14/2016 12/14/2016 Inactive buspirone 15 mg tablet RxNorm: 384083 1 Tablet(s) PO BID 12/12/2016 05/30/2017 Inactive hydrocodone 5 mg-acetaminophen 325 mg tablet RxNorm: 240874 1-2 Tablet(s) PO Q6 as needed for pain 12/08/2016 12/12/2016 Inactive Topamax 25 mg tablet RxNorm: 423746 TAKE 1 TABLET BY MOUTH EVERY DAY AT BEDTIME 12/06/2016 01/22/2017 Inactive Generic For:TOPAMAX 25MG 12/06/2016 9:15:13 AM Lac-Hydrin Five 5 % lotion RxNorm: 898298 1 Gram(s) TOP daily 12/02/2016 05/02/2018 Inactive cyanocobalamin (vit B-12) 1,000 mcg/mL injection solution RxNorm: 468994 Milliliter(s) Inj 11/24/2016 11/24/2016 Inactive Ceftin 500 mg tablet RxNorm: 951724 1 Tablet(s) PO BID 11/11/2016 06/13/2017 Inactive Cipro 500 mg tablet RxNorm: 370207 1 Tablet(s) PO BID 11/11/2016 11/10/2016 Inactive Cipro 500 mg tablet RxNorm: 627420 1 Tablet(s) PO BID 11/11/2016 11/11/2016 Inactive cyanocobalamin (vit B-12) 1,000 mcg/mL injection solution RxNorm: 534234 1 Milliliter(s) Inj 11/07/2016 11/07/2016 Inactive hydrocodone 5 mg-acetaminophen 325 mg tablet RxNorm: 153198 1-2 Tablet(s) PO Q6 as needed for pain 11/02/2016 11/06/2016 Inactive cyanocobalamin (vit B-12) 1,000 mcg/mL injection solution RxNorm: 113918 Milliliter(s) Inj 10/24/2016 10/24/2016 Inactive levothyroxine 125 mcg tablet RxNorm: 535940 Tablet(s) 1 Tablet(s) PO daily 10/24/2016 04/21/2017 Inactive liothyronine 5 mcg tablet RxNorm: 816701 1 Tablet(s) PO BID 10/24/2016 04/12/2017 Inactive hydrocodone 5 mg-acetaminophen 325 mg tablet RxNorm: 176945 1-2 Tablet(s) PO Q6 as needed for pain 10/17/2016 10/21/2016 Inactive Keflex 500 mg capsule RxNorm: 740688 1 Capsule(s) PO TID 10/07/2016 10/06/2016 Inactive Keflex 500 mg capsule RxNorm: 871873 1 Capsule(s) PO TID 10/07/2016 10/16/2016 Inactive Please deliver to patient cyanocobalamin (vit B-12) 1,000 mcg/mL injection solution RxNorm: 576097 1 Milliliter(s) Inj 09/29/2016 09/29/2016 Inactive alprazolam 0.25 mg tablet RxNorm: 803189 1 Tablet(s) PO BID 09/20/2016 03/16/2017 Inactive Cozaar 100 mg tablet RxNorm: 860339 1 Tablet(s) PO daily 09/14/2016 No Stop Date Active metoprolol tartrate 50 mg tablet RxNorm: 227644 1/2 Tablet(s) PO BID 09/14/2016 12/12/2016 Inactive Zoloft 50 mg tablet RxNorm: 535082 Tablet(s) TAKE 1 TABLET BY MOUTH DAILY 09/14/2016 03/12/2017 Inactive Generic For:ZOLOFT 50MG liothyronine 5 mcg tablet RxNorm: 450272 1 Tablet(s) PO BID 09/14/2016 10/23/2016 Inactive Calmoseptine 0.44 %-20.6 % topical ointment RxNorm: 824002 1 Application TOP BID and as needed to sore on buttocks 09/07/2016 No Stop Date Active cyanocobalamin (vit B-12) 1,000 mcg/mL injection solution RxNorm: 741929 Milliliter(s) Inj 08/29/2016 08/29/2016 Inactive hydrocodone 5 mg-acetaminophen 325 mg tablet RxNorm: 707915 1-2 Tablet(s) PO Q6 as needed for pain 08/29/2016 10/16/2016 Inactive levothyroxine 125 mcg tablet RxNorm: 873599 1 Tablet(s) PO daily 08/25/2016 10/23/2016 Inactive Topamax 25 mg tablet RxNorm: 378123 TAKE 1 TABLET BY MOUTH EVERY DAY AT BEDTIME 08/17/2016 12/05/2016 Inactive Generic For:TOPAMAX 25MG 08/17/2016 2:14:37 PM hydrocodone 5 mg-acetaminophen 325 mg tablet RxNorm: 233211 1-2 Tablet(s) PO Q6 as needed for pain 08/11/2016 08/28/2016 Inactive hydrocodone 5 mg-acetaminophen 325 mg tablet RxNorm: 548882 1 -2 Tablet(s) PO Q6 as needed for pain 08/11/2016 08/18/2016 Inactive hydrocodone 5 mg-acetaminophen 325 mg tablet RxNorm: 484860 1 Tablet(s) PO Q6 as needed for pain 08/05/2016 08/10/2016 Inactive cyanocobalamin (vit B-12) 1,000 mcg/mL injection solution RxNorm: 128821 Milliliter(s) Inj 08/04/2016 08/04/2016 Inactive Norvasc 10 mg tablet RxNorm: 156912 1 Tablet(s) PO daily 07/26/2016 07/20/2017 Inactive alprazolam 0.25 mg tablet RxNorm: 313181 1 Tablet(s) PO QHS 07/21/2016 09/19/2016 Inactive Norvasc 5 mg tablet RxNorm: 896836 1 Tablet(s) PO daily 07/21/2016 07/25/2016 Inactive levothyroxine 125 mcg tablet RxNorm: 783615 1 Tablet(s) PO daily 07/21/2016 12/11/2017 Inactive cyanocobalamin (vit B-12) 1,000 mcg/mL injection solution RxNorm: 491979 Milliliter(s) Inj 07/21/2016 07/21/2016 Inactive Zoloft 50 mg tablet RxNorm: 118976 Tablet(s) TAKE 1 TABLET BY MOUTH DAILY 07/21/2016 09/13/2016 Inactive Generic For:ZOLOFT 50MG cyanocobalamin (vit B-12) 1,000 mcg/mL injection solution RxNorm: 611591 1 Milliliter(s) Inj 07/05/2016 07/05/2016 Inactive cyanocobalamin (vit B-12) 1,000 mcg/mL injection solution RxNorm: 786848 1 Milliliter(s) Inj 06/22/2016 06/22/2016 Inactive cyanocobalamin (vit B-12) 1,000 mcg/mL injection solution RxNorm: 339233 Milliliter(s) Inj 06/09/2016 06/09/2016 Inactive Aricept 10 mg tablet RxNorm: 052550 1 Tablet(s) PO daily 05/27/2016 05/21/2017 Inactive Mobic 15 mg tablet RxNorm: 358812 1 Tablet(s) PO daily 05/27/2016 05/21/2017 Inactive levothyroxine 125 mcg tablet RxNorm: 544876 1 Tablet(s) PO daily 05/25/2016 07/20/2016 Inactive cyanocobalamin (vit B-12) 1,000 mcg/mL injection solution RxNorm: 797760 1 Milliliter(s) Inj 05/25/2016 05/25/2016 Inactive doxycycline hyclate 100 mg capsule RxNorm: 7590797 1 Capsule(s) PO BID 05/16/2016 05/15/2016 Inactive doxycycline hyclate 100 mg capsule RxNorm: 3016888 1 Capsule(s) PO BID 05/16/2016 05/22/2016 Inactive cyanocobalamin (vit B-12) 1,000 mcg/mL injection solution RxNorm: 432224 Milliliter(s) Inj 05/10/2016 05/10/2016 Inactive cyanocobalamin (vit B-12) 1,000 mcg/mL injection solution RxNorm: 980623 Milliliter(s) Inj 04/26/2016 04/26/2016 Inactive Topamax 25 mg tablet RxNorm: 418343 1 Tablet(s) PO QPM 04/22/2016 08/16/2016 Inactive cyanocobalamin (vit B-12) 1,000 mcg/mL injection solution RxNorm: 293366 Milliliter(s) 1 Milliliter(s) Inj [id number] 04/11/2016 12/31/2017 Inactive liothyronine 5 mcg tablet RxNorm: 314194 1 Tablet(s) PO BID 04/11/2016 09/13/2016 Inactive cyanocobalamin (vit B-12) 1,000 mcg/mL injection solution RxNorm: 673588 Milliliter(s) Inj 04/11/2016 04/11/2016 Inactive cyanocobalamin (vit B-12) 1,000 mcg/mL injection solution RxNorm: 283121 Milliliter(s) Inj 03/31/2016 03/31/2016 Inactive cyanocobalamin (vit B-12) 1,000 mcg/mL injection solution RxNorm: 441326 1 Milliliter(s) Inj 03/15/2016 03/15/2016 Inactive levothyroxine 125 mcg tablet RxNorm: 865768 1 Tablet(s) PO daily 2016 03/03/2016 Inactive levothyroxine 125 mcg tablet RxNorm: 522916 1 Tablet(s) PO daily 2016 05/24/2016 Inactive cyanocobalamin (vit B-12) 1,000 mcg/mL injection solution RxNorm: 175525 Milliliter(s) Inj 02/25/2016 02/25/2016 Inactive cyanocobalamin (vit B-12) 1,000 mcg/mL injection solution RxNorm: 738580 1 Milliliter(s) Inj 02/02/2016 02/02/2016 Inactive sucralfate 1 gram tablet RxNorm: 227750 1 Tablet(s) PO QHS 01/25/2016 No Stop Date Active amiodarone 200 mg tablet RxNorm: 816948 1/2 Tablet(s) PO BID 01/25/2016 05/21/2017 Inactive cyanocobalamin (vit B-12) 1,000 mcg/mL injection solution RxNorm: 321426 Milliliter(s) Inj 01/18/2016 01/18/2016 Inactive cyanocobalamin (vit B-12) 1,000 mcg/mL injection solution RxNorm: 398182 Milliliter(s) Inj 12/29/2015 12/29/2015 Inactive Topamax 25 mg tablet RxNorm: 174373 1 Tablet(s) PO QPM 12/08/2015 04/05/2016 Inactive cyanocobalamin (vit B-12) 1,000 mcg/mL injection solution RxNorm: 156510 Milliliter(s) Inj 12/08/2015 12/08/2015 Inactive Bactrim DS 800 mg-160 mg tablet RxNorm: 360884 1 Tablet(s) PO BID 11/23/2015 11/22/2015 Inactive cyanocobalamin (vit B-12) 1,000 mcg/mL injection solution RxNorm: 539562 Milliliter(s) Inj 11/23/2015 11/23/2015 Inactive Bactrim DS 800 mg-160 mg tablet RxNorm: 043636 1 Tablet(s) PO BID 11/23/2015 11/29/2015 Inactive cyanocobalamin (vit B-12) 1,000 mcg/mL injection solution RxNorm: 502123 Milliliter(s) Inj 11/11/2015 11/11/2015 Inactive amoxicillin 500 mg capsule RxNorm: 753339 1 Capsule(s) PO TID 11/10/2015 11/19/2015 Inactive Zithromax Z-Henrique 250 mg tablet RxNorm: 466041 1 Tablet(s) PO UD 11/10/2015 01/24/2016 Inactive zpack x 1 amoxicillin 500 mg capsule RxNorm: 361670 1 Capsule(s) PO TID 11/10/2015 11/09/2015 Inactive cyanocobalamin (vit B-12) 1,000 mcg/mL injection solution RxNorm: 952261 1 Milliliter(s) Inj 10/29/2015 10/29/2015 Inactive Lanexa 3 capsule RxNorm: 1 Capsule(s) PO QAM , 2 Capsules at noon, 1 Capsule QHS 10/13/2015 No Stop Date Active potassium chloride ER 20 mEq tablet,extended release RxNorm: 492630 2 Tablet(s) PO daily at noon 10/13/2015 No Stop Date Active alprazolam 0.25 mg tablet RxNorm: 262796 1 Tablet(s) PO QHS 10/13/2015 07/20/2016 Inactive amiodarone 200 mg tablet RxNorm: 212730 1 Tablet(s) PO BID 10/13/2015 01/24/2016 Inactive cyanocobalamin (vit B-12) 1,000 mcg/mL injection solution RxNorm: 750174 1 Milliliter(s) Inj 10/12/2015 10/12/2015 Inactive Zofran 4 mg tablet RxNorm: 121767 1 Tablet(s) PO daily as needed 10/07/2015 05/24/2016 Inactive Zoloft 50 mg tablet RxNorm: 892158 TAKE 1 TABLET BY MOUTH DAILY 10/05/2015 05/01/2016 Inactive Generic For:ZOLOFT 50MG cyanocobalamin (vit B-12) 1,000 mcg/mL injection solution RxNorm: 807122 1 Milliliter(s) Inj 09/29/2015 09/29/2015 Inactive cyanocobalamin (vit B-12) 1,000 mcg/mL injection solution RxNorm: 019325 1 Milliliter(s) Inj 09/17/2015 09/17/2015 Inactive Norvasc 5 mg tablet RxNorm: 095639 1 Tablet(s) PO daily 09/17/2015 07/20/2016 Inactive liothyronine 5 mcg tablet RxNorm: 554883 1 Tablet(s) PO BID 09/17/2015 03/14/2016 Inactive Zoloft 50 mg tablet RxNorm: 195923 1 Tablet(s) PO daily 09/17/2015 10/04/2015 Inactive buspirone 15 mg tablet RxNorm: 047641 1 Tablet(s) PO BID 09/17/2015 09/10/2016 Inactive buspirone 15 mg tablet RxNorm: 629797 1 Tablet(s) PO BID 09/14/2015 09/16/2015 Inactive Topamax 25 mg tablet RxNorm: 962756 1 Tablet(s) PO QPM 09/03/2015 12/07/2015 Inactive cyanocobalamin (vit B-12) 1,000 mcg/mL injection solution RxNorm: 953753 1 Milliliter(s) Inj 09/03/2015 09/03/2015 Inactive cyanocobalamin (vit B-12) 1,000 mcg/mL injection solution RxNorm: 880796 Milliliter(s) Inj 08/17/2015 08/17/2015 Inactive cyanocobalamin (vit B-12) 1,000 mcg/mL injection solution RxNorm: 174622 Milliliter(s) Inj 08/06/2015 08/06/2015 Inactive levothyroxine 150 mcg tablet RxNorm: 407345 1 Tablet(s) PO daily 07/22/2015 03/03/2016 Inactive Aricept 10 mg tablet RxNorm: 269197 1 Tablet(s) PO daily 07/22/2015 05/26/2016 Inactive Mobic 15 mg tablet RxNorm: 402252 1 Tablet(s) PO daily 07/22/2015 05/26/2016 Inactive cyanocobalamin (vit B-12) 1,000 mcg/mL injection solution RxNorm: 514846 Milliliter(s) Inj 07/22/2015 07/22/2015 Inactive liothyronine 5 mcg tablet RxNorm: 194935 1 Tablet(s) PO BID 07/22/2015 09/16/2015 Inactive cyanocobalamin (vit B-12) 1,000 mcg/mL injection solution RxNorm: 111964 Milliliter(s) Inj 07/08/2015 07/08/2015 Inactive cyanocobalamin (vit B-12) 1,000 mcg/mL injection solution RxNorm: 496427 Milliliter(s) Inj 06/23/2015 06/23/2015 Inactive cyanocobalamin (vit B-12) 1,000 mcg/mL injection solution RxNorm: 356138 1 Milliliter(s) Inj 06/08/2015 06/08/2015 Inactive cyanocobalamin (vit B-12) 1,000 mcg/mL injection solution RxNorm: 300123 Milliliter(s) Inj 05/27/2015 05/27/2015 Inactive Aricept 10 mg tablet RxNorm: 379303 1 Tablet(s) PO daily 05/20/2015 07/21/2015 Inactive Zofran 4 mg tablet RxNorm: 802587 1 Tablet(s) PO daily as needed 05/20/2015 06/18/2015 Inactive alprazolam 0.25 mg tablet RxNorm: 360446 1 Tablet(s) PO BID 05/20/2015 10/12/2015 Inactive Mobic 15 mg tablet RxNorm: 770057 1 Tablet(s) PO daily 05/20/2015 07/21/2015 Inactive tramadol ER 100 mg tablet,extended release 24 hr RxNorm: 787506 1 Tablet(s) PO Q6 as needed 05/13/2015 No Stop Date Active cyanocobalamin (vit B-12) 1,000 mcg/mL injection solution RxNorm: 524294 1 Milliliter(s) Inj 05/12/2015 05/12/2015 Inactive Topamax 25 mg tablet RxNorm: 614884 1 Tablet(s) PO BID (start at one pill at bedtime x 1week then twice daily thereafter) 05/12/2015 09/02/2015 Inactive cyanocobalamin (vit B-12) 1,000 mcg/mL injection kit RxNorm: 756136 kit Inj 04/30/2015 04/30/2015 Inactive cyanocobalamin (vit B-12) 1,000 mcg/mL injection solution RxNorm: 377983 Milliliter(s) Inj 04/16/2015 04/16/2015 Inactive levothyroxine 150 mcg tablet RxNorm: 070178 1 Tablet(s) PO daily 04/08/2015 07/21/2015 Inactive cyanocobalamin (vit B-12) 1,000 mcg/mL injection solution RxNorm: 596819 Milliliter(s) 1 Milliliter(s) Inj [id number] 04/08/2015 04/10/2016 Inactive Cytomel 5 mcg tablet RxNorm: 764603 1 Tablet(s) PO BID 04/08/2015 10/12/2015 Inactive Cytomel 5 mcg tablet RxNorm: 347904 1 Tablet(s) PO BID 04/07/2015 04/07/2015 Inactive Cytomel 5 mcg tablet RxNorm: 591137 1 Tablet(s) PO BID 04/07/2015 04/06/2015 Inactive cyanocobalamin (vit B-12) 1,000 mcg/mL injection solution RxNorm: 373055 Milliliter(s) Inj 04/02/2015 04/02/2015 Inactive cyanocobalamin (vit B-12) 1,000 mcg/mL injection solution RxNorm: 952189 Milliliter(s) Inj 03/18/2015 03/18/2015 Inactive cyanocobalamin (vit B-12) 1,000 mcg/mL injection solution RxNorm: 739373 Milliliter(s) 1 Milliliter(s) Inj [id number] 03/18/2015 04/07/2015 Inactive cyanocobalamin (vit B-12) 1,000 mcg/mL injection solution RxNorm: 748288 1 Milliliter(s) Inj G9atkbg 03/16/2015 03/17/2015 Inactive cyanocobalamin (vit B-12) 1,000 mcg/mL injection solution RxNorm: 571782 Milliliter(s) Inj 03/03/2015 03/03/2015 Inactive cyanocobalamin (vit B-12) 1,000 mcg/mL injection solution RxNorm: 022111 Milliliter(s) Inj 02/18/2015 02/18/2015 Inactive cyanocobalamin (vit B-12) 1,000 mcg/mL injection solution RxNorm: 951992 Milliliter(s) Inj 02/04/2015 02/04/2015 Inactive cyanocobalamin (vit B-12) 1,000 mcg/mL injection solution RxNorm: 641249 Milliliter(s) Inj 01/22/2015 01/22/2015 Inactive Lac-Hydrin Five 5 % lotion RxNorm: 936212 1 TOP daily 01/13/2015 03/13/2015 Inactive Lac-Hydrin Five 5 % lotion RxNorm: 500590 1 TOP daily 01/13/2015 01/12/2015 Inactive cyanocobalamin (vit B-12) 1,000 mcg/mL injection solution RxNorm: 894585 Milliliter(s) Inj 01/08/2015 01/08/2015 Inactive cyanocobalamin (vit B-12) 1,000 mcg/mL injection solution RxNorm: 021087 Milliliter(s) Inj 12/25/2014 12/25/2014 Inactive levothyroxine 150 mcg tablet RxNorm: 410824 1 Tablet(s) PO daily 12/24/2014 04/07/2015 Inactive tramadol 50 mg tablet RxNorm: 115788 1-2 Tablet(s) PO Q6 as needed 12/17/2014 05/12/2015 Inactive alprazolam 0.25 mg tablet RxNorm: 848989 1 Tablet(s) PO BID 12/17/2014 04/15/2015 Inactive Pradaxa 150 mg capsule RxNorm: 5338015 1 Capsule(s) PO BID 12/16/2014 No Stop Date Active metoprolol tartrate 50 mg tablet RxNorm: 751402 1/2 Tablet(s) PO BID 12/16/2014 09/13/2016 Inactive buspirone 15 mg tablet RxNorm: 488593 1 Tablet(s) PO BID 12/16/2014 09/13/2015 Inactive cyanocobalamin (vit B-12) 1,000 mcg/mL injection solution RxNorm: 659269 1 Milliliter(s) Inj I3kwkdt 12/16/2014 03/15/2015 Inactive cyanocobalamin (vit B-12) 1,000 mcg/mL injection solution RxNorm: 203936 1 Milliliter(s) Inj H4rnscv 12/16/2014 12/15/2014 Inactive sucralfate 1 gram tablet RxNorm: 948114 Tablet(s) PO QID 12/16/2014 12/10/2015 Inactive cyanocobalamin (vit B-12) 1,000 mcg/mL injection solution RxNorm: 181053 Milliliter(s) Inj 12/10/2014 12/10/2014 Inactive cyanocobalamin (vit B-12) 1,000 mcg/mL injection solution RxNorm: 727916 Milliliter(s) Inj 11/26/2014 11/26/2014 Inactive Zoloft 50 mg tablet RxNorm: 178322 1 Tablet(s) PO daily 11/24/2014 06/21/2015 Inactive Zoloft 50 mg tablet RxNorm: 602759 1 Tablet(s) PO daily 11/24/2014 11/23/2014 Inactive cyanocobalamin (vit B-12) 1,000 mcg/mL injection kit RxNorm: 741727 Milliliter(s) Inj 11/12/2014 11/12/2014 Inactive cyanocobalamin (vit B-12) 1,000 mcg/mL injection solution RxNorm: 179674 Milliliter(s) Inj 10/28/2014 10/28/2014 Inactive [SAVINGS FOR NON-COVERED DRUGS -- BIN:[id number], PCN: [id number], Group: [id number], ID# [id number], Questions: . THIS IS NOT INSURANCE.] promethazine oral RxNorm: 8745 oral No Start Date Active digoxin 125 mcg tablet RxNorm: 667368 Tablet(s) PO every other day No Start Date Active furosemide 40 mg tablet RxNorm: 655192 1 Tablet(s) PO daily No Start Date Active Vitamin D3 5,000 unit tablet RxNorm: 927923 1 Tablet(s) PO daily No Start Date Active erythromycin 250 mg capsule,delayed release RxNorm: 177017 1 Capsule(s) PO AC No Start Date Active Protonix 40 mg tablet,delayed release RxNorm: 101764 1 Tablet(s) PO BID No Start Date Active Cozaar 100 mg tablet RxNorm: 036834 1 Tablet(s) PO daily No Start Date 09/13/2016 Inactive sucralfate 1 gram tablet RxNorm: 256532 Tablet(s) PO QID No Start Date 12/15/2014 Inactive amiodarone 200 mg tablet RxNorm: 755166 2 Tablet(s) PO daily No Start Date 10/13/2015 Inactive buspirone 15 mg tablet RxNorm: 730919 1 Tablet(s) PO daily No Start Date 12/15/2014 Inactive potassium chloride ER 20 mEq tablet,extended release RxNorm: 940091 1 Tablet(s) PO daily No Start Date 10/12/2015 Inactive Prilosec 40 mg capsule,delayed release RxNorm: 450858 1 Capsule(s) PO daily No Start Date 09/02/2015 Inactive Lanexa 3 capsule RxNorm: Capsule(s) PO No Start Date 10/12/2015 Inactive alprazolam 0.25 mg tablet RxNorm: 028264 Tablet(s) PO QHS No Start Date 12/16/2014 Inactive levothyroxine 125 mcg tablet RxNorm: 300346 1 Tablet(s) PO daily No Start Date 12/23/2014 Inactive liothyronine 5 mcg tablet RxNorm: 323676 1 Tablet(s) PO BID No Start Date 07/21/2015 Inactive Mobic 15 mg tablet RxNorm: 986319 Tablet(s) PO daily No Start Date 05/19/2015 Inactive Norvasc 5 mg tablet RxNorm: 961079 1 Tablet(s) PO daily No Start Date 09/16/2015 Inactive Zofran 4 mg tablet RxNorm: 123753 1 Tablet(s) PO daily as needed No Start Date 05/19/2015 Inactive Tamiflu 75 mg capsule RxNorm: 741288 1 Capsule(s) PO BID No Start Date 07/23/2017 Inactive tramadol 50 mg tablet RxNorm: 223141 1 Tablet(s) PO daily as needed No Start Date 12/16/2014 Inactive amiodarone 200 mg tablet RxNorm: 675148 1 Tablet(s) PO daily No Start Date 10/12/2015 Inactive Zofran ODT 4 mg disintegrating tablet RxNorm: 516314 1 Tablet(s) PO TID as needed No Start Date 05/02/2017 Inactive albuterol sulfate 2.5 mg/3 mL (0.083 %) solution for nebulization RxNorm: 563215 3 Milliliter(s) INH Q6 PRN No Start Date 09/20/2017 Inactive meclizine 25 mg tablet RxNorm: 592881 Tablet(s) PO as needed No Start Date 05/24/2016 Inactive Pradaxa 150 mg capsule RxNorm: 0845438 1 Capsule(s) PO daily No Start Date 12/15/2014 Inactive metoprolol tartrate 50 mg tablet RxNorm: 461673 1/2 Tablet(s) PO No Start Date 12/15/2014 Inactive Aricept 10 mg tablet RxNorm: 258531 Tablet(s) PO daily No Start Date 05/19/2015 Inactive Calmoseptine 0.44 %-20.6 % topical ointment RxNorm: 196931 1 Application TOP BID and as needed to sore on buttocks No Start Date 09/06/2016 Inactive Zithromax Z-Henrique 250 mg tablet RxNorm: 451663 1 Tablet(s) PO UD No Start Date 11/09/2015 Inactive zpack x 1 Medication Administered Medication Codes Instructions Start Date Status cyanocobalamin (vit B-12) 1,000 mcg/mL injection solution RxNorm: 134394 Milliliter 05/09/2018 No longer Active cyanocobalamin (vit B-12) 1,000 mcg/mL injection solution RxNorm: 409053 Milliliter 04/26/2018 No longer Active cyanocobalamin (vit B-12) 1,000 mcg/mL injection solution RxNorm: 578906 Milliliter 04/12/2018 No longer Active cyanocobalamin (vit B-12) 1,000 mcg/mL injection solution RxNorm: 944788 Milliliter 03/30/2018 No longer Active cyanocobalamin (vit B-12) 1,000 mcg/mL injection solution RxNorm: 874941 Milliliter 03/16/2018 No longer Active cyanocobalamin (vit B-12) 1,000 mcg/mL injection solution RxNorm: 124242 Milliliter 03/02/2018 No longer Active cyanocobalamin (vit B-12) 1,000 mcg/mL injection solution RxNorm: 964843 Milliliter 02/08/2018 No longer Active cyanocobalamin (vit B-12) 1,000 mcg/mL injection solution RxNorm: 751711 Milliliter 01/24/2018 No longer Active cyanocobalamin (vit B-12) 1,000 mcg/mL injection solution RxNorm: 327434 Milliliter 01/10/2018 No longer Active cyanocobalamin (vit B-12) 1,000 mcg/mL injection solution RxNorm: 958521 Milliliter 12/27/2017 No longer Active cyanocobalamin (vit B-12) 1,000 mcg/mL injection solution RxNorm: 408458 1Milliliter 12/12/2017 No longer Active cyanocobalamin (vit B-12) 1,000 mcg/mL injection solution RxNorm: 552434 Milliliter 12/01/2017 No longer Active cyanocobalamin (vit B-12) 1,000 mcg/mL injection solution RxNorm: 010795 1Milliliter 11/17/2017 No longer Active cyanocobalamin (vit B-12) 1,000 mcg/mL injection solution RxNorm: 084753 1Milliliter 11/02/2017 No longer Active cyanocobalamin (vit B-12) 1,000 mcg/mL injection solution RxNorm: 286552 1Milliliter 10/20/2017 No longer Active cyanocobalamin (vit B-12) 1,000 mcg/mL injection solution RxNorm: 709231 Milliliter 10/06/2017 No longer Active cyanocobalamin (vit B-12) 1,000 mcg/mL injection solution RxNorm: 193445 Milliliter 09/21/2017 No longer Active Kenalog 40 mg/mL suspension for injection RxNorm: 9622497 Milliliter 09/15/2017 No longer Active cyanocobalamin (vit B-12) 1,000 mcg/mL injection solution RxNorm: 029705 Milliliter 09/07/2017 No longer Active cyanocobalamin (vit B-12) 1,000 mcg/mL injection solution RxNorm: 111291 Milliliter 08/24/2017 No longer Active cyanocobalamin (vit B-12) 1,000 mcg/mL injection solution RxNorm: 854788 Milliliter 07/06/2017 No longer Active cyanocobalamin (vit B-12) 1,000 mcg/mL injection solution RxNorm: 637337 Milliliter 06/20/2017 No longer Active Kenalog 40 mg/mL suspension for injection RxNorm: 8884605 1Milliliter 06/20/2017 No longer Active cyanocobalamin (vit B-12) 1,000 mcg/mL injection solution RxNorm: 595747 Milliliter 06/05/2017 No longer Active cyanocobalamin (vit B-12) 1,000 mcg/mL injection solution RxNorm: 564049 Milliliter 05/25/2017 No longer Active cyanocobalamin (vit B-12) 1,000 mcg/mL injection solution RxNorm: 328005 Milliliter 05/16/2017 No longer Active cyanocobalamin (vit B-12) 1,000 mcg/mL injection solution RxNorm: 354056 1Milliliter 05/01/2017 No longer Active cyanocobalamin (vit B-12) 1,000 mcg/mL injection solution RxNorm: 204018 Milliliter 04/18/2017 No longer Active cyanocobalamin (vit B-12) 1,000 mcg/mL injection solution RxNorm: 736304 Milliliter 04/06/2017 No longer Active cyanocobalamin (vit B-12) 1,000 mcg/mL injection solution RxNorm: 101545 Milliliter 03/22/2017 No longer Active cyanocobalamin (vit B-12) 1,000 mcg/mL injection solution RxNorm: 903664 Milliliter 03/09/2017 No longer Active cyanocobalamin (vit B-12) 1,000 mcg/mL injection solution RxNorm: 630536 Milliliter 02/23/2017 No longer Active cyanocobalamin (vit B-12) 1,000 mcg/mL injection solution RxNorm: 998113 Milliliter 02/09/2017 No longer Active cyanocobalamin (vit B-12) 1,000 mcg/mL injection solution RxNorm: 440969 Milliliter 01/23/2017 No longer Active cyanocobalamin (vit B-12) 1,000 mcg/mL injection solution RxNorm: 114220 Milliliter 01/10/2017 No longer Active cyanocobalamin (vit B-12) 1,000 mcg/mL injection solution RxNorm: 020819 1Milliliter 12/28/2016 No longer Active cyanocobalamin (vit B-12) 1,000 mcg/mL injection solution RxNorm: 745327 Milliliter 12/14/2016 No longer Active cyanocobalamin (vit B-12) 1,000 mcg/mL injection solution RxNorm: 156621 Milliliter 11/24/2016 No longer Active cyanocobalamin (vit B-12) 1,000 mcg/mL injection solution RxNorm: 031864 1Milliliter 11/07/2016 No longer Active cyanocobalamin (vit B-12) 1,000 mcg/mL injection solution RxNorm: 480808 Milliliter 10/24/2016 No longer Active cyanocobalamin (vit B-12) 1,000 mcg/mL injection solution RxNorm: 961342 1Milliliter 09/29/2016 No longer Active cyanocobalamin (vit B-12) 1,000 mcg/mL injection solution RxNorm: 084153 Milliliter 08/29/2016 No longer Active cyanocobalamin (vit B-12) 1,000 mcg/mL injection solution RxNorm: 914560 Milliliter 08/04/2016 No longer Active cyanocobalamin (vit B-12) 1,000 mcg/mL injection solution RxNorm: 652346 Milliliter 07/21/2016 No longer Active cyanocobalamin (vit B-12) 1,000 mcg/mL injection solution RxNorm: 254689 1Milliliter 07/05/2016 No longer Active cyanocobalamin (vit B-12) 1,000 mcg/mL injection solution RxNorm: 234648 1Milliliter 06/22/2016 No longer Active cyanocobalamin (vit B-12) 1,000 mcg/mL injection solution RxNorm: 420953 Milliliter 06/09/2016 No longer Active cyanocobalamin (vit B-12) 1,000 mcg/mL injection solution RxNorm: 238489 1Milliliter 05/25/2016 No longer Active cyanocobalamin (vit B-12) 1,000 mcg/mL injection solution RxNorm: 566806 Milliliter 05/10/2016 No longer Active cyanocobalamin (vit B-12) 1,000 mcg/mL injection solution RxNorm: 006741 Milliliter 04/26/2016 No longer Active cyanocobalamin (vit B-12) 1,000 mcg/mL injection solution RxNorm: 919371 Milliliter 04/11/2016 No longer Active cyanocobalamin (vit B-12) 1,000 mcg/mL injection solution RxNorm: 721260 Milliliter 03/31/2016 No longer Active cyanocobalamin (vit B-12) 1,000 mcg/mL injection solution RxNorm: 890087 1Milliliter 03/15/2016 No longer Active cyanocobalamin (vit B-12) 1,000 mcg/mL injection solution RxNorm: 639037 Milliliter 02/25/2016 No longer Active cyanocobalamin (vit B-12) 1,000 mcg/mL injection solution RxNorm: 340272 1Milliliter 02/02/2016 No longer Active cyanocobalamin (vit B-12) 1,000 mcg/mL injection solution RxNorm: 046933 Milliliter 01/18/2016 No longer Active cyanocobalamin (vit B-12) 1,000 mcg/mL injection solution RxNorm: 868672 Milliliter 12/29/2015 No longer Active cyanocobalamin (vit B-12) 1,000 mcg/mL injection solution RxNorm: 176720 Milliliter 12/08/2015 No longer Active cyanocobalamin (vit B-12) 1,000 mcg/mL injection solution RxNorm: 122051 Milliliter 11/23/2015 No longer Active cyanocobalamin (vit B-12) 1,000 mcg/mL injection solution RxNorm: 509422 Milliliter 11/11/2015 No longer Active cyanocobalamin (vit B-12) 1,000 mcg/mL injection solution RxNorm: 889790 1Milliliter 10/29/2015 No longer Active cyanocobalamin (vit B-12) 1,000 mcg/mL injection solution RxNorm: 951772 1Milliliter 10/12/2015 No longer Active cyanocobalamin (vit B-12) 1,000 mcg/mL injection solution RxNorm: 322361 1Milliliter 09/29/2015 No longer Active cyanocobalamin (vit B-12) 1,000 mcg/mL injection solution RxNorm: 569229 1Milliliter 09/17/2015 No longer Active cyanocobalamin (vit B-12) 1,000 mcg/mL injection solution RxNorm: 476710 1Milliliter 09/03/2015 No longer Active cyanocobalamin (vit B-12) 1,000 mcg/mL injection solution RxNorm: 524633 Milliliter 08/17/2015 No longer Active cyanocobalamin (vit B-12) 1,000 mcg/mL injection solution RxNorm: 660556 Milliliter 08/06/2015 No longer Active cyanocobalamin (vit B-12) 1,000 mcg/mL injection solution RxNorm: 109184 Milliliter 07/22/2015 No longer Active cyanocobalamin (vit B-12) 1,000 mcg/mL injection solution RxNorm: 338662 Milliliter 07/08/2015 No longer Active cyanocobalamin (vit B-12) 1,000 mcg/mL injection solution RxNorm: 766041 Milliliter 06/23/2015 No longer Active cyanocobalamin (vit B-12) 1,000 mcg/mL injection solution RxNorm: 367781 1Milliliter 06/08/2015 No longer Active cyanocobalamin (vit B-12) 1,000 mcg/mL injection solution RxNorm: 864738 Milliliter 05/27/2015 No longer Active cyanocobalamin (vit B-12) 1,000 mcg/mL injection solution RxNorm: 971553 1Milliliter 05/12/2015 No longer Active cyanocobalamin (vit B-12) 1,000 mcg/mL injection kit RxNorm: 258306 kit 04/30/2015 No longer Active cyanocobalamin (vit B-12) 1,000 mcg/mL injection solution RxNorm: 345833 Milliliter 04/16/2015 No longer Active cyanocobalamin (vit B-12) 1,000 mcg/mL injection solution RxNorm: 314325 Milliliter 04/02/2015 No longer Active cyanocobalamin (vit B-12) 1,000 mcg/mL injection solution RxNorm: 044727 Milliliter 03/18/2015 No longer Active cyanocobalamin (vit B-12) 1,000 mcg/mL injection solution RxNorm: 267925 Milliliter 03/03/2015 No longer Active cyanocobalamin (vit B-12) 1,000 mcg/mL injection solution RxNorm: 350280 Milliliter 02/18/2015 No longer Active cyanocobalamin (vit B-12) 1,000 mcg/mL injection solution RxNorm: 910674 Milliliter 02/04/2015 No longer Active cyanocobalamin (vit B-12) 1,000 mcg/mL injection solution RxNorm: 926610 Milliliter 01/22/2015 No longer Active cyanocobalamin (vit B-12) 1,000 mcg/mL injection solution RxNorm: 036878 Milliliter 01/08/2015 No longer Active cyanocobalamin (vit B-12) 1,000 mcg/mL injection solution RxNorm: 785802 Milliliter 12/25/2014 No longer Active cyanocobalamin (vit B-12) 1,000 mcg/mL injection solution RxNorm: 714775 Milliliter 12/10/2014 No longer Active cyanocobalamin (vit B-12) 1,000 mcg/mL injection solution RxNorm: 649984 Milliliter 11/26/2014 No longer Active cyanocobalamin (vit B-12) 1,000 mcg/mL injection kit RxNorm: 917503 Milliliter 11/12/2014 No longer Active cyanocobalamin (vit B-12) 1,000 mcg/mL injection solution RxNorm: 351302 Milliliter 10/28/2014 No longer Active Immunizations Vaccine Codes Date Status Influenza CVX: 141 03/16/2018 completed Influenza CVX: 141 03/22/2017 completed Pneumococcal (Adult) CVX: 33 05/25/2016 completed Influenza CVX: 141 03/15/2016 completed Assessments Condition Codes Effective Dates 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 ICD-9: 281.0 05/09/2018 Type 2 diabetes mellitus without complications ICD-10: [...] Observation Code Item Item Code Result Date B12 [id number] B12 889.00 pg/ml 02/26/2018 Tsh Ord6 TSH (3rd IS) 3.20 uIU/mL 02/26/2018 Free T4 Ubf746 FREE T4 0.99 ng/dL 02/26/2018 Cbc With [...] 28.5 pg 02/26/2018 Cbc With Differential Ord2 [place]% 10.3 % 02/26/2018 Cbc With Differential Ord2 [...] 1.80 K/ul 02/26/2018 Cbc With Differential Ord2 [place] ABS# 0.7 K/ul 02/26/2018 Cbc With Differential Ord2 Eos ABS# 0.2 K/ul 02/26/2018 Cbc With Differential Ord2 Baso ABS# 0.0 K/ul 02/26/2018 Digoxin Ord9 DIGOXIN 0.7 NG/ML 11/23/2017 Comp Metabolic Vmi478 NA 142 mEq/L 11/23/2017 Comp Metabolic Stq475 K 4.9 mEq/L 11/23/2017 Comp Metabolic Ekc547 CL 112 mEq/L 11/23/2017 Comp Metabolic Unb074 CO2 18.0 mEq/L 11/23/2017 Comp Metabolic Riy405 ANION GAP 17 11/23/2017 Comp Metabolic Rvh303 GLUCOSE 123 mg/dL 11/23/2017 Comp Metabolic Jco257 Creat 1.0 mg/dL 11/23/2017 Comp Metabolic Mkq528 eGFR 59 ml/min/1.73m2 11/23/2017 Comp Metabolic Lgd282 BUN 24 mg/dL 11/23/2017 Comp Metabolic Frd824 B/C Ratio 25.0 Ratio 11/23/2017 Comp Metabolic Tnd906 CALCIUM 9.4 mg/dL 11/23/2017 Comp Metabolic Hko739 ALK PHOS 56 U/L 11/23/2017 Comp Metabolic Ncr736 AST(SGOT) 17 U/L 11/23/2017 Comp Metabolic Ter624 ALT(SGPT) 16 U/L 11/23/2017 Comp Metabolic Tpo258 BILI T 0.7 mg/dL 11/23/2017 Comp Metabolic Zjd089 ALBUMIN 3.8 g/dL 11/23/2017 Comp Metabolic Wzb050 TPRO 6.2 g/dL 11/23/2017 Comp Metabolic Tdx299 GLOB 2.4 g/dL 11/23/2017 Comp Metabolic Kot855 A/G Ratio 1.6 Ratio 11/23/2017 Comp Metabolic Fzs768 Osmo 289 mOsmo 11/23/2017 Microalbumin Mmv587 MicroAlb <0.7 mg/dL 11/23/2017 Free T4 Atw692 FREE T4 1.04 ng/dL 11/23/2017 %Hba1C Rfd036 % HbA1c 81936- 6 6.4 % 11/23/2017 %Hba1C Naa298 Gluc Ave 137 mg/dL 11/23/2017 Lipid Ord30 CHOL 179 mg/dL 11/23/2017 Lipid Ord30 HDL 51.0 mg/dl 11/23/2017 Lipid Ord30 TRIG 134 mg/dL 11/23/2017 Lipid Ord30 LDL 101 mg/dL 11/23/2017 Lipid Ord30 C/HDL 3.5 Ratio 11/23/2017 Tsh Ord6 TSH (3rd IS) 1.00 uIU/mL 11/23/2017 Free T4 Gtr505 FREE T4 1.05 ng/dL 01/23/2017 Tsh Ord6 hTSH II 1.68 uIU/mL 01/23/2017 Comp Metabolic Iha380 NA 141 mEq/L 01/23/2017 Comp Metabolic Xiq499 K 4.5 mEq/L 01/23/2017 Comp Metabolic Nmq255 CL 107 mEq/L 01/23/2017 Comp Metabolic Mfw683 CO2 21.0 mEq/L 01/23/2017 Comp Metabolic Qbm573 ANION GAP 18 01/23/2017 Comp Metabolic Dcl108 GLUCOSE 138 mg/dL 01/23/2017 Comp Metabolic Xbf032 Creat 1.0 mg/dL 01/23/2017 Comp Metabolic Vru334 eGFR 56 ml/min/1.73m2 01/23/2017 Comp Metabolic Kls363 BUN 26 mg/dL 01/23/2017 Comp Metabolic Dte211 B/C Ratio 25.7 Ratio 01/23/2017 Comp Metabolic Szj847 CALCIUM 9.0 mg/dL 01/23/2017 Comp Metabolic Csr477 ALK PHOS 37 U/L 01/23/2017 Comp Metabolic Ezt816 AST(SGOT) 20 U/L 01/23/2017 Comp Metabolic Ntu060 ALT(SGPT) 25 U/L 01/23/2017 Comp Metabolic Khv349 BILI T 0.9 mg/dL 01/23/2017 Comp Metabolic Hcl713 ALBUMIN 3.8 g/dL 01/23/2017 Comp Metabolic Feo604 TPRO 6.5 g/dL 01/23/2017 Comp Metabolic Emx843 GLOB 2.7 g/dL 01/23/2017 Comp Metabolic Vqr913 A/G Ratio 1.4 Ratio 01/23/2017 Comp Metabolic Fug321 Osmo 288 mOsmo 01/23/2017 %Hba1C Uob610 % HbA1c 68935- 6 6.1 % 01/23/2017 %Hba1C Dkh804 Gluc Ave 128 mg/dL 01/23/2017 Culture Urine [id number] URINE CULTURE SEE NOTES 11/10/2016 Culture Urine [id number] Continued Results 11/10/2016 Urine Culture Ucult Complete [...] Ord15 CALCIUM 9.3 mg/dL 09/29/2016 Free T4 Qca742 FREE T4 0.99 ng/dL 09/07/2016 Cbc With [...] 30.0 pg 09/07/2016 Cbc With Differential Ord2 [place]% 9.8 % 09/07/2016 Cbc With Differential Ord2 [...] 1.75 K/ul 09/07/2016 Cbc With Differential Ord2 [place] ABS# 0.6 K/ul 09/07/2016 Cbc With Differential Ord2 Eos ABS# 0.1 K/ul 09/07/2016 Cbc With Differential Ord2 Baso ABS# 0.0 K/ul 09/07/2016 Tsh Ord6 hTSH II 1.41 uIU/mL 09/07/2016 Culture Urine [id number] URINE CULTURE SEE NOTES 06/27/2016 Hepatic Qxf059 ALBUMIN 4.2 g/dL 06/22/2016 Hepatic Xiw901 TPRO 7.0 g/dL 06/22/2016 Hepatic Rsb809 GLOB 2.8 g/dL 06/22/2016 Hepatic Lch954 A/G Ratio 1.5 Ratio 06/22/2016 Hepatic Qnm684 ALK PHOS 54 U/L 06/22/2016 Hepatic Yqx425 ALT(SGPT) 30 U/L 06/22/2016 Hepatic Rga575 AST(SGOT) 24 U/L 06/22/2016 Hepatic Mvx176 BILI T 1.1 mg/dL 06/22/2016 Hepatic Mii129 BILI D 0.2 mg/dL 06/22/2016 Hepatic Tyh887 BILI I 0.9 mg/dL 06/22/2016 Lipid Ord30 CHOL 196 mg/dL 06/22/2016 Lipid Ord30 HDL 63.0 mg/dl 06/22/2016 Lipid Ord30 TRIG 154 mg/dL 06/22/2016 Lipid Ord30 LDL 102 mg/dL 06/22/2016 Lipid Ord30 C/HDL 3.1 Ratio 06/22/2016 Comp Metabolic Xma451 NA 139 mEq/L 06/14/2016 Comp Metabolic Tip771 K 4.6 mEq/L 06/14/2016 Comp Metabolic Hus128 CL 108 mEq/L 06/14/2016 Comp Metabolic Euw028 CO2 22.0 mEq/L 06/14/2016 Comp Metabolic Wrm617 ANION GAP 14 06/14/2016 Comp Metabolic Xqr939 GLUCOSE 114 mg/dL 06/14/2016 Comp Metabolic Qun125 Creat 1.2 mg/dL 06/14/2016 Comp Metabolic Zhi270 eGFR 48 ml/min/1.73m2 06/14/2016 Comp Metabolic Xbq641 BUN 24 mg/dL 06/14/2016 Comp Metabolic Rcn239 B/C Ratio 20.9 Ratio 06/14/2016 Comp Metabolic Slb512 CALCIUM 9.9 mg/dL 06/14/2016 Comp Metabolic Yov194 ALK PHOS 47 U/L 06/14/2016 Comp Metabolic Dlm384 AST(SGOT) 28 U/L 06/14/2016 Comp Metabolic Bzc333 ALT(SGPT) 32 U/L 06/14/2016 Comp Metabolic Pvv128 BILI T 0.9 mg/dL 06/14/2016 Comp Metabolic Vdb744 ALBUMIN 4.1 g/dL 06/14/2016 Comp Metabolic Tlh609 TPRO 6.9 g/dL 06/14/2016 Comp Metabolic Fve275 GLOB 2.8 g/dL 06/14/2016 Comp Metabolic Djt969 A/G Ratio 1.5 Ratio 06/14/2016 Comp Metabolic Yqa894 Osmo 282 mOsmo 06/14/2016 Tsh Ord6 hTSH II 1.26 uIU/mL 06/14/2016 Free T4 Mls474 FREE T4 1.09 ng/dL 06/14/2016 Hepatic Ayz874 ALBUMIN 4.0 g/dL 02/02/2016 Hepatic Zpb869 TPRO 7.0 g/dL 02/02/2016 Hepatic Oqf928 GLOB 3.0 g/dL 02/02/2016 Hepatic Oub177 A/G Ratio 1.3 Ratio 02/02/2016 Hepatic Hun822 ALK PHOS 57 U/L 02/02/2016 Hepatic Cci154 ALT(SGPT) 62 U/L 02/02/2016 Hepatic Fvq932 AST(SGOT) 54 U/L 02/02/2016 Hepatic Bmd370 BILI T 0.8 mg/dL 02/02/2016 Hepatic Otr714 BILI D 0.2 mg/dL 02/02/2016 Hepatic Aad908 BILI I 0.6 mg/dL 02/02/2016 Free T4 Vxf864 FREE T4 1.23 ng/dL 02/02/2016 Digoxin Ord9 DIGOXIN 0.7 NG/ML 02/02/2016 Tsh Ord6 hTSH II 0.28 uIU/mL 02/02/2016 Urine Culture Ucult Complete No Growth Day 2 11/25/2015 Urine Culture Ucult Preliminary No Growth Day 1 11/25/2015 Hepatic Ilr413 ALBUMIN 3.9 g/dL 11/11/2015 Hepatic Yds199 TPRO 7.0 g/dL 11/11/2015 Hepatic Pfd900 GLOB 3.1 g/dL 11/11/2015 Hepatic Vvj834 A/G Ratio 1.3 Ratio 11/11/2015 Hepatic Nnv316 ALK PHOS 63 U/L 11/11/2015 Hepatic Con533 ALT(SGPT) 107 U/L 11/11/2015 Hepatic Jsx122 AST(SGOT) 101 U/L 11/11/2015 Hepatic Cwz720 BILI T 0.6 mg/dL 11/11/2015 Hepatic Twy895 BILI D 0.1 mg/dL 11/11/2015 Hepatic Dzu598 BILI I 0.5 mg/dL 11/11/2015 Comp Metabolic Wfw700 NA 138 mEq/L 10/29/2015 Comp Metabolic Ire910 K 5.0 mEq/L 10/29/2015 Comp Metabolic Msg552 CL 105 mEq/L 10/29/2015 Comp Metabolic Mty994 CO2 23.0 mEq/L 10/29/2015 Comp Metabolic Qam292 ANION GAP 15 10/29/2015 Comp Metabolic Ecq506 GLUCOSE 105 mg/dL 10/29/2015 Comp Metabolic Wrx813 Creat 1.0 mg/dL 10/29/2015 Comp Metabolic Zki808 eGFR 55 ml/min/1.73m2 10/29/2015 Comp Metabolic Nuu940 BUN 20 mg/dL 10/29/2015 Comp Metabolic Zwh245 B/C Ratio 19.4 Ratio 10/29/2015 Comp Metabolic Oms000 CALCIUM 8.8 mg/dL 10/29/2015 Comp Metabolic Kvw899 ALK PHOS 56 U/L 10/29/2015 Comp Metabolic Hak922 AST(SGOT) 66 U/L 10/29/2015 Comp Metabolic Ehr786 ALT(SGPT) 78 U/L 10/29/2015 Comp Metabolic Hse847 BILI T 0.7 mg/dL 10/29/2015 Comp Metabolic Szw783 ALBUMIN 3.6 g/dL 10/29/2015 Comp Metabolic Pxq326 TPRO 6.6 g/dL 10/29/2015 Comp Metabolic Knp665 GLOB 3.0 g/dL 10/29/2015 Comp Metabolic Xef202 A/G Ratio 1.2 Ratio 10/29/2015 Comp Metabolic Jzc240 Osmo 279 mOsmo 10/29/2015 Comp Metabolic Ffb094 NA 136 mEq/L 09/03/2015 Comp Metabolic Dcq683 K 4.4 mEq/L 09/03/2015 Comp Metabolic Xqd084 CL 103 mEq/L 09/03/2015 Comp Metabolic Kzj866 CO2 24.0 mEq/L 09/03/2015 Comp Metabolic Frf190 ANION GAP 13 09/03/2015 Comp Metabolic Bbv552 GLUCOSE 87 mg/dL 09/03/2015 Comp Metabolic Zzq607 Creat 1.1 mg/dL 09/03/2015 Comp Metabolic Wyf299 eGFR 53 ml/min/1.73m2 09/03/2015 Comp Metabolic Xzo723 BUN 17 mg/dL 09/03/2015 Comp Metabolic Ufa240 B/C Ratio 16.2 Ratio 09/03/2015 Comp Metabolic Yzm891 CALCIUM 9.0 mg/dL 09/03/2015 Comp Metabolic Apu202 ALK PHOS 55 U/L 09/03/2015 Comp Metabolic Gph586 AST(SGOT) 83 U/L 09/03/2015 Comp Metabolic Puj936 ALT(SGPT) 126 U/L 09/03/2015 Comp Metabolic Jiz689 BILI T 0.9 mg/dL 09/03/2015 Comp Metabolic Nzi326 ALBUMIN 3.9 g/dL 09/03/2015 Comp Metabolic Ckq326 TPRO 6.8 g/dL 09/03/2015 Comp Metabolic Xio125 GLOB 2.9 g/dL 09/03/2015 Comp Metabolic Dyu896 A/G Ratio 1.4 Ratio 09/03/2015 Comp Metabolic Oxs202 Osmo 273 mOsmo 09/03/2015 Total T3 Ord42 TT3 0.6 ng/ml 07/09/2015 Tsh Ord6 hTSH II 1.62 uIU/mL 07/09/2015 Tsh Ord6 hTSH II 5.95 uIU/mL 04/02/2015 Free T4 Yaf350 FREE T4 1.23 ng/dL 04/02/2015 Total T3 [...] Procedure Codes Date THER/PROPH/DIAG INJ SC/IM CPT-4: 58176 05/09/2018 THER/PROPH/DIAG INJ SC/IM CPT-4: 52286 04/26/2018 VITAMIN B12 INJECTION CPT- 4: J3420 04/26/2018 THER/PROPH/DIAG INJ SC/IM CPT-4: 86613 04/12/2018 THER/PROPH/DIAG INJ SC/IM CPT-4: 10103 03/30/2018 THER/PROPH/DIAG INJ SC/IM CPT-4: 24264 03/16/2018 VITAMIN B12 INJECTION CPT- 4: J3420 03/16/2018 ADMIN INFLUENZA VIRUS VAC CPT-4: G0008 03/16/2018 FLU VACC PRSV FREE INC ANTIG Formatting Model/CDA Sections, Assigned to/Nga Ojeda CPT-4: 35600Ncetqbh 03/16/2018 THER/PROPH/DIAG INJ SC/IM CPT-4: 22227 03/02/2018 THER/PROPH/DIAG INJ SC/IM CPT-4: 39013 02/08/2018 THER/PROPH/DIAG INJ SC/IM CPT-4: 27985 01/24/2018 THER/PROPH/DIAG INJ SC/IM CPT-4: 12327 01/10/2018 THER/PROPH/DIAG INJ SC/IM CPT-4: 10011 12/27/2017 VITAMIN B12 INJECTION CPT- 4: J3420 12/27/2017 THER/PROPH/DIAG INJ SC/IM CPT-4: 22866 12/12/2017 THER/PROPH/DIAG INJ SC/IM CPT-4: 77095 12/01/2017 VITAMIN B12 INJECTION CPT- 4: J3420 12/01/2017 THER/PROPH/DIAG INJ SC/IM CPT-4: 96073 11/17/2017 THER/PROPH/DIAG INJ SC/IM CPT-4: 88086 11/02/2017 THER/PROPH/DIAG INJ SC/IM CPT-4: 89656 10/20/2017 THER/PROPH/DIAG INJ SC/IM CPT-4: 76802 10/06/2017 THER/PROPH/DIAG INJ SC/IM CPT-4: 00749 09/21/2017 TRIAMCINOLONE ACET INJ NOS CPT-4: J3301 09/15/2017 THER/PROPH/DIAG INJ SC/IM CPT-4: 94042 09/07/2017 THER/PROPH/DIAG INJ SC/IM CPT-4: 66827 08/24/2017 THER/PROPH/DIAG INJ SC/IM CPT-4: 28919 07/06/2017 THER/PROPH/DIAG INJ SC/IM CPT-4: 71883 06/20/2017 TRIAMCINOLONE ACET INJ NOS CPT-4: J3301 06/20/2017 PPPS, SUBSEQ VISIT CPT- 4: G0439 06/05/2017 THER/PROPH/DIAG INJ SC/IM CPT-4: 36958 06/05/2017 THER/PROPH/DIAG INJ SC/IM CPT-4: 74190 05/25/2017 VITAMIN B12 INJECTION CPT- 4: J3420 05/25/2017 THER/PROPH/DIAG INJ SC/IM CPT-4: 68026 05/16/2017 THER/PROPH/DIAG INJ SC/IM CPT-4: 20561 05/01/2017 THER/PROPH/DIAG INJ SC/IM CPT-4: 82500 04/18/2017 THER/PROPH/DIAG INJ SC/IM CPT-4: 59787 04/06/2017 ADMIN INFLUENZA VIRUS VAC CPT-4: G0008 03/22/2017 FLU VACC PRSV FREE INC ANTIG CPT-4: 91799 03/22/2017 THER/PROPH/DIAG INJ SC/IM CPT-4: 26270 03/09/2017 THER/PROPH/DIAG INJ SC/IM CPT-4: 28277 02/23/2017 THER/PROPH/DIAG INJ SC/IM CPT-4: 45021 02/09/2017 THER/PROPH/DIAG INJ SC/IM CPT-4: 45220 01/23/2017 THER/PROPH/DIAG INJ SC/IM CPT-4: 45986 01/10/2017 THER/PROPH/DIAG INJ SC/IM CPT-4: 97851 12/28/2016 THER/PROPH/DIAG INJ SC/IM CPT-4: 91436 12/14/2016 THER/PROPH/DIAG INJ SC/IM CPT-4: 90590 11/24/2016 URINALYSIS NONAUTO W/O SCOPE CPT-4: 50891 11/07/2016 THER/PROPH/DIAG INJ SC/IM CPT-4: 31991 11/07/2016 THER/PROPH/DIAG INJ SC/IM CPT-4: 53377 10/24/2016 THER/PROPH/DIAG INJ SC/IM CPT-4: 67575 09/29/2016 THER/PROPH/DIAG INJ SC/IM CPT-4: 55786 08/29/2016 THER/PROPH/DIAG INJ SC/IM CPT-4: 81285 08/04/2016 THER/PROPH/DIAG INJ SC/IM CPT-4: 14422 07/21/2016 THER/PROPH/DIAG INJ SC/IM CPT-4: 63509 07/05/2016 THER/PROPH/DIAG INJ SC/IM CPT-4: 23191 06/22/2016 URINALYSIS NONAUTO W/O SCOPE CPT-4: 31630 06/22/2016 THER/PROPH/DIAG INJ SC/IM CPT-4: 12082 06/09/2016 PPPS, SUBSEQ VISIT CPT- 4: G0439 05/30/2016 ADMIN PNEUMOCOCCAL VACCINE SNOMED CT: 42528045 CPT-4: G0009 05/25/2016 Pneumococcal Polysaccharide Vaccine, 23-Valent, Ad CPT-4: 44988 05/25/2016 THER/PROPH/DIAG INJ SC/IM CPT-4: 72755 05/25/2016 THER/PROPH/DIAG INJ SC/IM CPT-4: 91422 05/10/2016 TRIAMCINOLONE ACET INJ NOS CPT-4: J3301 04/26/2016 VITAMIN B12 INJECTION CPT- 4: J3420 04/26/2016 THER/PROPH/DIAG INJ SC/IM CPT-4: 28159 04/11/2016 THER/PROPH/DIAG INJ SC/IM CPT-4: 83690 03/31/2016 ADMIN INFLUENZA VIRUS VAC CPT-4: G0008 03/15/2016 FLU VACC 4 STEPHANIE [address] YRS PLUS IM SNOMED CT: 11022723 CPT-4: 66283 03/15/2016 THER/PROPH/DIAG INJ SC/IM CPT-4: 07464 02/25/2016 THER/PROPH/DIAG INJ SC/IM CPT-4: 83497 02/02/2016 THER/PROPH/DIAG INJ SC/IM CPT-4: 23206 01/18/2016 VITAMIN B12 INJECTION CPT- 4: J3420 12/29/2015 THER/PROPH/DIAG INJ SC/IM CPT-4: 93095 12/29/2015 THER/PROPH/DIAG INJ SC/IM CPT-4: 38352 12/08/2015 THER/PROPH/DIAG INJ SC/IM CPT-4: 19130 11/23/2015 URINALYSIS NONAUTO W/O SCOPE CPT-4: 53877 11/23/2015 THER/PROPH/DIAG INJ SC/IM CPT-4: 44664 11/11/2015 THER/PROPH/DIAG INJ SC/IM CPT-4: 19187 10/29/2015 THER/PROPH/DIAG INJ SC/IM CPT-4: 19055 10/12/2015 VITAMIN B12 INJECTION CPT- 4: J3420 10/12/2015 THER/PROPH/DIAG INJ SC/IM CPT-4: 38643 09/29/2015 THER/PROPH/DIAG INJ SC/IM CPT-4: 52045 09/17/2015 THER/PROPH/DIAG INJ SC/IM CPT-4: 86117 09/03/2015 THER/PROPH/DIAG INJ SC/IM CPT-4: 57226 08/17/2015 THER/PROPH/DIAG INJ SC/IM CPT-4: 76091 08/06/2015 THER/PROPH/DIAG INJ SC/IM CPT-4: 36749 07/22/2015 THER/PROPH/DIAG INJ SC/IM CPT-4: 75431 07/08/2015 THER/PROPH/DIAG INJ SC/IM CPT-4: 52353 06/23/2015 THER/PROPH/DIAG INJ SC/IM CPT-4: 16210 06/08/2015 THER/PROPH/DIAG INJ SC/IM CPT-4: 80623 05/27/2015 DESTRUCT PREMALG LESION CPT-4: 78018 05/19/2015 DESTRUCT PREMALG LES 2-14 CPT-4: 22089 05/19/2015 THER/PROPH/DIAG INJ SC/IM CPT-4: 20610 05/12/2015 VITAMIN B12 INJECTION CPT- 4: J3420 05/12/2015 THER/PROPH/DIAG INJ SC/IM CPT-4: 43691 04/30/2015 VITAMIN B12 INJECTION CPT- 4: J3420 04/30/2015 THER/PROPH/DIAG INJ SC/IM CPT-4: 20059 04/16/2015 THER/PROPH/DIAG INJ SC/IM CPT-4: 38893 04/02/2015 VITAMIN B12 INJECTION CPT- 4: J3420 04/02/2015 THER/PROPH/DIAG INJ SC/IM CPT-4: 30962 03/18/2015 THER/PROPH/DIAG INJ SC/IM CPT-4: 43892 03/03/2015 THER/PROPH/DIAG INJ SC/IM CPT-4: 29880 02/18/2015 THER/PROPH/DIAG INJ SC/IM CPT-4: 58601 02/04/2015 VITAMIN B12 INJECTION CPT- 4: J3420 02/04/2015 THER/PROPH/DIAG INJ SC/IM CPT-4: 29331 01/22/2015 THER/PROPH/DIAG INJ SC/IM CPT-4: 30875 01/08/2015 VITAMIN B12 INJECTION CPT- 4: J3420 01/08/2015 THER/PROPH/DIAG INJ SC/IM CPT-4: 41697 12/25/2014 VITAMIN B12 INJECTION CPT- 4: J3420 12/25/2014 THER/PROPH/DIAG INJ SC/IM CPT-4: 18374 12/10/2014 VITAMIN B12 INJECTION CPT- 4: J3420 12/10/2014 THER/PROPH/DIAG INJ SC/IM CPT-4: 53524 11/26/2014 VITAMIN B12 INJECTION CPT- 4: J3420 11/26/2014 THER/PROPH/DIAG INJ SC/IM CPT-4: 46302 11/12/2014 VITAMIN B12 INJECTION CPT- 4: J3420 11/12/2014 THER/PROPH/DIAG INJ SC/IM CPT-4: 09805 10/28/2014 Vital Signs Date Vital 05/03/2018 Blood Pressure 1: 140/70 Code: 8480-6 BMI: 26.0 Code: 09100-0 Heart Rate 1: 70 bpm Height: 5'6" SpO2: 94% Weight: 161 lbs 04/26/2018 Height: 5'6" 02/26/2018 Blood Pressure 1: 130/72 Code: 8480-6 BMI: 27.9 Code: 96967-5 Heart Rate 1: 72 bpm Height: 5'6" SpO2: 93% Weight: 173 lbs 12/12/2017 Blood Pressure 1: 126/74 Code: 8480-6 BMI: 27.4 Code: 56611-0 Heart Rate 1: 83 bpm Height: 5'6" SpO2: 98% Weight: 170 lbs 12/04/2017 Blood Pressure 1: 104/68 Code: 8480-6 BMI: 28.2 Code: 36762-2 Heart Rate 1: 85 bpm Height: 5'6" SpO2: 95% Weight: 175 lbs 11/20/2017 Blood Pressure 1: 130/68 Code: 8480-6 BMI: 28.4 Code: 43231-8 Heart Rate 1: 80 bpm Height: 5'6" SpO2: 99% Weight: 176 lbs 11/02/2017 Height: 5'6" 09/15/2017 Blood Pressure 1: 134/74 Code: 8480-6 BMI: 28.4 Code: 86719-1 Heart Rate 1: 88 bpm Height: 5'6" SpO2: 98% Weight: 176 lbs 09/07/2017 Blood Pressure 1: 124/64 Code: 8480-6 Heart Rate 1: 90 bpm Height: SpO2: 97% Weight: 08/30/2017 Blood Pressure 1: 140/76 Code: 8480-6 BMI: 28.4 Code: 08425-2 Heart Rate 1: 90 bpm Height: 5'6" SpO2: 94% Weight: 176 lbs 07/06/2017 Blood Pressure 1: 132/66 Code: 8480-6 BMI: 29.4 Code: 97989-5 Heart Rate 1: 85 bpm Height: 5'6" SpO2: 97% Weight: 182 lbs 06/20/2017 Blood Pressure 1: 134/86 Code: 8480-6 Heart Rate 1: 90 bpm Height: SpO2: 98% Weight: 06/05/2017 BMI: 29.1 Code: 83540-2 Height: 5'6" Weight: 180 lbs 05/25/2017 Blood Pressure 1: 126/76 Code: 8480-6 BMI: 29.1 Code: 02466-8 Heart Rate 1: 77 bpm Height: 5'6" SpO2: 97% Weight: 180 lbs 03/23/2017 Blood Pressure 1: 142/84 Code: 8480-6 BMI: 29.1 Code: 79598-9 Heart Rate 1: 91 bpm Height: 5'6" SpO2: 97% Weight: 180 lbs 01/23/2017 Blood Pressure 1: 150/90 Code: 8480-6 BMI: 29.9 Code: 47037-0 Heart Rate 1: 81 bpm Height: 5'6" SpO2: 97% Weight: 185 lbs 11/02/2016 Blood Pressure 1: 148/78 Code: 8480-6 BMI: 29.7 Code: 61983-2 Heart Rate 1: 87 bpm Height: 5'6" SpO2: 97% Weight: 184 lbs 09/29/2016 Blood Pressure 1: 128/78 Code: 8480-6 BMI: 29.7 Code: 85871-5 Heart Rate 1: 78 bpm Height: 5'6" SpO2: 98% Weight: 184 lbs 07/26/2016 Blood Pressure 1: 138/72 Code: 8480-6 BMI: 30.0 Code: 96937-3 Heart Rate 1: 85 bpm Height: 5'6" SpO2: 97% Weight: 186 lbs 05/30/2016 Blood Pressure 1: 132/76 Code: 8480-6 BMI: 30.0 Code: 52877-8 Heart Rate 1: 80 bpm Height: 5'6" SpO2: 98% Waist Measure (cm): 99 cm Weight: 186 lbs 05/25/2016 Blood Pressure 1: 132/76 Code: 8480-6 BMI: 30.0 Code: 70469-4 Heart Rate 1: 80 bpm Height: 5'6" SpO2: 96% Weight: 186 lbs 02/25/2016 Blood Pressure 1: 110/64 Code: 8480-6 Heart Rate 1: 82 bpm Height: SpO2: 96% Weight: 01/25/2016 Blood Pressure 1: 118/70 Code: 8480-6 BMI: 30.0 Code: 43255-1 Heart Rate 1: 78 bpm Height: 5'6" SpO2: 97% Weight: 186 lbs 11/11/2015 Blood Pressure 1: 128/82 Code: 8480-6 BMI: 29.2 Code: 71099-3 Heart Rate 1: 86 bpm Height: 5'6" SpO2: 96% Temperature: 36.4 (C) / 97.6 (F) Weight: 181 lbs 10/12/2015 Blood Pressure 1: 118/70 Code: 8480-6 BMI: 29.2 Code: 48609-2 Heart Rate 1: 81 bpm Height: 5'6" SpO2: 95% Weight: 181 lbs 09/03/2015 Blood Pressure 1: 138/78 Code: 8480-6 BMI: 29.9 Code: 75867-4 Heart Rate 1: 88 bpm Height: 5'6" SpO2: 97% Weight: 185 lbs 05/19/2015 Blood Pressure 1: 146/78 Code: 8480-6 BMI: 30.0 Code: 51271-0 Heart Rate 1: 66 bpm Height: 5'6" SpO2: 97% Weight: 186 lbs 05/12/2015 Blood Pressure 1: 120/70 Code: 8480-6 BMI: 29.9 Code: 30521-1 Heart Rate 1: 89 bpm Height: 5'6" SpO2: 95% Weight: 185 lbs 01/13/2015 Blood Pressure 1: 140/90 Code: 8480-6 BMI: 30.3 Code: 41225-6 Heart Rate 1: 84 bpm Height: 5'6" SpO2: 95% Weight: 188 lbs 12/16/2014 Blood Pressure 1: 140/82 Code: 8480-6 BMI: 29.5 Code: 87948-7 Heart Rate 1: 86 bpm Height: 5'6" [...] data Encounters Encounter Performer Location Codes Date ([id number]) [id number] EST. PATIENT, LEVEL IV Diagnosis: Essential (primary) hypertension[ICD10: I10] Diagnosis: Type 2 diabetes mellitus without complications[ICD10: E11.9] [facility] CPT-4: 13940 05/03/2018 ([id number]) 49132 EST. PATIENT, LEVEL III Diagnosis: Pain in left shoulder[ICD10: M25.512] Diagnosis: Pain in right shoulder[ICD10: M25.511] [facility] CPT-4: 17862 02/26/2018 ([id number]) 43934 EST. PATIENT, LEVEL III Diagnosis: Nausea[ICD10: R11.0] Diagnosis: Cough[ICD10: R05] Diagnosis: 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 factor deficiency[ICD10: D51.0] Janet Vega MD, [facility] CPT-4: 32881 12/12/2017 ([id number]) 44961 EST. PATIENT, LEVEL IV Diagnosis: Acute bronchitis due to Hemophilus influenzae[ICD10: J20.1] Diagnosis: Cough[ICD10: R05] Yarely Vega MD, [facility] CPT-4: 21033 12/04/2017 ([id number]) 78566 EST. PATIENT, LEVEL IV Diagnosis: Essential (primary) hypertension[ICD10: I10] Diagnosis: Cough[ICD10: R05] Diagnosis: Chronic atrial fibrillation[ICD10: I48.2] Yarely Vega MD, [facility] CPT-4: 00484 11/20/2017 ([id number]) 74304 EST. PATIENT, LEVEL III Diagnosis: Cough[ICD10: R05] Diagnosis: Acute upper respiratory infection, unspecified[ICD10: J06.9] Janet Vega MD, [facility] CPT-4: 25167 09/15/2017 04237 EST. PATIENT, LEVEL III Diagnosis: Laceration without foreign body of right forearm, initial encounter[ICD10: S51.811A] Diagnosis: Other vitamin B12 deficiency anemias[ICD10: D51.8] Brianna Vega MD, [facility] CPT-4: 73905 09/07/2017 ([id number]) 24990 EST. PATIENT, LEVEL IV Diagnosis: Chronic atrial fibrillation[ICD10: I48.2] Diagnosis: Other allergic rhinitis[ICD10: J30.89] Diagnosis: Encounter for therapeutic drug level monitoring[ICD10: Z51.81] Yarely Vega MD, [facility] CPT-4: 26981 08/30/2017 ([id number]) 16816 EST. PATIENT, LEVEL IV Diagnosis: Atrophy of thyroid (acquired)[ICD10: E03.4] Diagnosis: Cough[ICD10: R05] Diagnosis: Laceration without foreign body of left forearm, initial encounter[ICD10: S51.812A] Diagnosis: Candidiasis of skin and nail[ICD10: B37.2] Diagnosis: Other vitamin B12 deficiency anemias[ICD10: D51.8] Diagnosis: Slow transit constipation[ICD10: K59.01] Yarely Vega MD, [facility] CPT-4: 37107 07/06/2017 [id number] EST. PATIENT, LEVEL III Diagnosis: Other vitamin B12 deficiency anemias[ICD10: D51.8] Diagnosis: Acute laryngopharyngitis[ICD10: J06.0] Diagnosis: Other allergic rhinitis[ICD10: J30.89] rBianna Vega MD, [facility] CPT- 4: 02194 06/20/[id number]) 63180 EST. PATIENT, LEVEL IV Diagnosis: Essential (primary) hypertension[ICD10: I10] Diagnosis: Chronic atrial fibrillation[ICD10: I48.2] Diagnosis: Atrophy of thyroid (acquired)[ICD10: E03.4] Diagnosis: 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 factor deficiency[ICD10: D51.0] Yarely Vega MD, [facility] CPT-4: 56205 05/25/2017 ([id number]) 95069 EST. 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 PATIENT, LEVEL IV Diagnosis: Type 2 diabetes mellitus without complications[ICD10: E11.9] Diagnosis: Essential (primary) hypertension[ICD10: I10] Diagnosis: Headache[ICD10: R51] Diagnosis: Atrophy of thyroid (acquired)[ICD10: E03.4] Diagnosis: Vitamin B12 deficiency anemia, unspecified[ICD10: D51.9] Yarely Vega MD, [facility] CPT-4: 41211 01/23/2017 75829 EST. PATIENT, LEVEL III Diagnosis: Low back pain[ICD10: M54.5] Diagnosis: Pain in thoracic spine[ICD10: M54.6] Brianna Vega MD, [facility] CPT- 4: 31434 11/02/2016 ([id number]) 47760 EST. PATIENT, LEVEL IV Diagnosis: Essential (primary) hypertension[ICD10: I10] Diagnosis: Other vitamin B12 deficiency anemias[ICD10: D51.8] Diagnosis: Generalized abdominal pain[ICD10: R10.84] Yarely Vega MD, [facility] CPT-4: 08057 09/29/2016 ([id number]) 54014 EST. PATIENT, LEVEL IV Diagnosis: Essential (primary) hypertension[ICD10: I10] Yarely Vega MD, [facility] CPT-4: 70050 07/26/2016 ([id number]) 83526 EST. PATIENT, LEVEL IV Diagnosis: Benign lipomatous neoplasm of skin and subcutaneous tissue of right leg[ICD10: D17.23] Diagnosis: Pain in right ankle and joints of right foot[ICD10: M25.571] Diagnosis: Encounter for immunization[ICD10: Z23] Diagnosis: Vitamin B12 deficiency anemia, unspecified[ICD10: D51.9] Yarely Vega MD, [facility] CPT-4: 01953 05/25/2016 60578 EST. PATIENT, LEVEL III Diagnosis: Other chest pain[ICD10: R07.89] Diagnosis: Other vitamin B12 deficiency anemias[ICD10: D51.8] Brianna Vega MD, [facility] CPT-4: 31572 02/25/2016 ([id number]) 09767 EST. 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 PATIENT, LEVEL III Diagnosis: Other vitamin B12 deficiency anemias[ICD10: D51.8] Diagnosis: Acute nasopharyngitis [common cold][ICD10: J00] Diagnosis: Other allergic rhinitis[ICD10: J30.89] Brianna Vega MD, [facility] CPT- 4: 94284 11/11/2015 ([id number]) 05129 EST. PATIENT, LEVEL IV Diagnosis: Essential tremor[ICD10: G25.0] Diagnosis: Chronic fatigue, unspecified[ICD10: R53.82] Diagnosis: Other hypersomnia[ICD10: G47.19] Diagnosis: Essential (primary) hypertension[ICD10: I10] Yarely Vega MD, [facility] CPT-4: 72034 10/12/2015 ([id number]) 25620 EST. PATIENT, LEVEL IV Diagnosis: Essential (primary) hypertension[ICD10: I10] Diagnosis: Chronic atrial fibrillation[ICD10: I48.2] Diagnosis: Abnormal levels of other serum enzymes[ICD10: R74.8] Diagnosis: Type 2 diabetes mellitus without complications[ICD10: E11.9] Diagnosis: Vitamin B12 deficiency anemia, unspecified[ICD10: D51.9] Yarely Vega MD, [facility] CPT-4: 47982 09/03/2015 ([id number]) 56686 EST. PATIENT, LEVEL III Diagnosis: Nausea[ICD10: R11.0] Diagnosis: Essential tremor[ICD10: G25.0] Diagnosis: Actinic keratosis[ICD10: L57.0] Yarely Vega MD, [facility] CPT-4: 67508 05/19/2015 ([id number]) 88996 EST. PATIENT, LEVEL IV Diagnosis: Vitamin B12 deficiency anemia, unspecified[ICD10: D51.9] Diagnosis: Chronic atrial fibrillation[ICD10: I48.2] Diagnosis: Headache[ICD10: R51] Diagnosis: Chronic fatigue, unspecified[ICD10: R53.82] Diagnosis: Cervicalgia[ICD10: M54.2] Yarely Vega MD, [facility] CPT-4: 55477 05/12/2015 ([id number]) 18152 EST. PATIENT, LEVEL IV Diagnosis: ESSENTIAL HYPERTENSION[ICD9: 401.9] Diagnosis: Afib[ICD9: 427.31] Diagnosis: Anxiety[ICD9: 300.00] Diagnosis: Insomnia[ICD9: 780.52] Yarely Vega MD, [facility] CPT-4: 92472 01/13/2015 ([id number]) OFFICE VISIT, NEW - LEVEL 4 Diagnosis: Hypothyroidism[ICD9: 244.9] Diagnosis: DIABETES TYPE II[ICD9: 250.00] Diagnosis: ESSENTIAL HYPERTENSION[ICD9: 401.9] Diagnosis: Afib[ICD9: 427.31] Diagnosis: Anxiety[ICD9: 300.00] Diagnosis: B12 deficiency[ICD9: 266.2] [facility] CPT-4: 48707 12/16/2014 Plan of Care Planned Activity Notes Codes Status Date Appointment: Injection 05/09/2018 Patient Education: Patient Medication [...] restart flonase 05/03/2018 Appointment: Yarely Vega WPtel: [id number] (15 min) Moderate 05/03/2018 Patient Education: Patient [...] surgical intervention. 02/26/2018 Appointment: Yarely Vega WPtel: [id number] (15 min) Moderate 02/26/2018 Patient Education: Patient Medication Summary Completed 02/26/2018 Care Plan: Referral Order SNOMED-CT : [id number] Pending 02/26/2018 Appointment: Injection 02/08/2018 Patient Education: Patient Medication Summary Completed 02/08/2018 Appointment: Injection 01/24/2018 Patient Education: Patient Medication Summary Completed 01/24/2018 Appointment: Injection 01/10/2018 Patient Education: Patient Medication Summary Completed 01/10/2018 Appointment: Injection 12/27/2017 Patient Education: Patient Medication Summary Completed 12/27/2017 Appointment: Yarely Vega WPtel: [phone] [id number] (15 min) Moderate 12/26/2017 Visit Plan: [id number] protonix-follow up with Dr Navarro as scheduled Cough-recent bronchitis-symptoms improved-call if symptoms do not completely resolve 12/12/2017 Appointment: Janet Fam WPtel: [facility]6 [id number] [place] (15 min) Moderate 12/12/2017 Patient Education: Patient Medication Summary Completed 12/12/2017 Visit Plan: Bronchitis - acute case of bronchitis identified. Pt has been given antibiotics, breathing treatments as appropriate, and pt has been instructed to call if symptoms are not improved, or if symptoms acutely worsen. Cough - rx for antibiotics as well as cough medication. 12/04/2017 Appointment: Yarely Vgea WPtel: [phone] [facility] (15 min) Moderate 12/04/2017 Patient Education: Patient [...] Fatigue/malaise -Pt was advsied to ask the Chucking Lathe Operator the following: ask the heart doctor [...] becoming uncontrolled. 11/20/2017 Appointment: Yarely Vega WPtel: [facility]0 [facility] (15 min) Moderate 11/20/2017 Patient Education: Patient [...] any worse. 09/15/2017 Appointment: Janet Fam WPtel: [facility]5 [phone] [place] (15 min) Moderate 09/15/2017 Patient Education: Patient Medication Summary Completed 09/15/2017 Appointment: Yarely Vega WPtel: [facility]8 [facility] [place] (15 min) Moderate 09/11/2017 Visit Plan: Skin tear and Cellulitis - The patient was instructed in appropriate wound care. The patient was instructed to use the antibiotic ointment as per RX. The patient is to call for any change in symptoms, increase in size of the lesion, increase in pain, worsening redness, warmth, discharge. 09/07/2017 App[facility]ment[facility]el[phone] [place] (10 min) Simple 09/07/2017 Patient Education: Patient Medication Summary Completed 09/07/2017 Visit Plan: Lipoma - left ankle - talk to dr. barnes about possible surgery/laser for treatment of lipoma. Fatigue/malaise -Pt was advsied to ask the Chucking Lathe Operator the following: ask the heart doctor if there is an alternative to the amiodarone - you may be having side effects from the medication causing you to have pruritus (itching) and feeling like you have body aches, muscle aches, joint pain, fatigue, weight loss (decreased appetite), and pneumonia like symptoms. Congestion - claritin 10mg daily. 08/30/2017 Appointment: [facility] [place] (15 min) Moderate 08/30/2017 Patient Education: Patient Medication Summary Completed 08/30/2017 Appointment: Injection 08/24/2017 Appointment: [facility]ega [facility]el[phone] [place] (15 min) Moderate 08/24/2017 Patient Education: [...] mucinex 07/06/2017 Appointment: [facility]ega [facility]el[phone] (15 min) Moderate 07/06/2017 Patient Education: Patient [...] spray. 06/20/2017 Appointment: [phone] [place] (15 min) Moderate 06/20/2017 Patient [...] Appointment: Bucky 06/05/2017 Appointment: Brianna Otoole WPtel: [facility] [facility] - Annual Wellness Visit 06/05/2017 Patient Education: [...] control. 05/25/2017 Appointment: [facility]ega [facility]el[phone] (15 min) Moderate 05/25/2017 Patient Education: Patient [...] wall. Fatigue - pt to discuss with Chucking Lathe Operator about the possibility of amiodarone causing her fatigue/malaise. 03/23/2017 App[facility]ment: [place]eggany [phone] [place] ([place] min) Moderate 03/23/2017 Patient Education: [...] daily. 01/23/2017 Appointment: Yarely Vega WPtel: [phone] [facility] (15 min) Moderate 01/23/2017 Patient Education: Patient [...] improve. 11/02/2016 Appointment: Brianna Otoole WPtel: [phone] [facility] [place] (15 min) Moderate 11/02/2016 Patient Education: [...] carafate 09/29/2016 Appointment: Yarely Vega WPtel: [phone] [facility] [place] (15 min) Moderate 09/29/2016 Patient Education: Patient Medication Summary Completed 09/29/2016 Appointment: Yarely Vega WPtel: [phone] [facility] [place] (15 min) Moderate 09/27/2016 Appointment: [phone] [place] ([place] min) Moderate 09/20/2016 Appointment: Yarely Vega [facility]el[phone] [place] ([place] min) Moderate 09/20/2016 Patient Education: Patient Medication Summary Completed 09/06/2016 Appointment: Yarely Vega [facility]el[phone] [place] (15 min) Moderate 08/30/2016 Appointment: Injection [...] acute concerns. 07/26/2016 Appointment: Gary Yarely [facility]el[phone] (15 min) Moderate 07/26/2016 Patient Education: Patient [...] surrogate. 05/30/2016 [phone] [facility] - Annual Wellness Visit 05/30/2016 Patient Education: [...] at bedtime 05/25/2016 Appointment: Yarely Vega [phone] (15 min) Moderate 05/25/2016 Patient Education: Patient Medication Summary Completed 05/25/2016 Patient Education: Obesity Completed 05/25/2016 Care Plan: Referral Order SNOMED-CT : [id number] Pending 05/25/2016 Appointment: Injection 05/10/2016 Patient Education: Patient Medication Summary Completed 05/10/2016 Appointment: Injection 04/26/2016 Patient Education: Patient Medication Summary Completed 04/26/2016 Appointment: Injection 04/11/2016 Patient Education: Patient Medication Summary Completed 04/11/2016 Appointment: Injection 03/31/2016 Patient Education: Patient Medication Summary Completed 03/31/2016 Patient Education: Patient Medication Summary Completed 03/22/2016 [facility] Plan[id number] Pending 03/22/2016 Appointment: Injection 03/15/2016 Patient Education: [...] concerns. 02/25/2016 Appointment: [facility]el[phone] ([facility] min) Moderate 02/25/2016 Patient Education: [...] the patients recent sleep study - recommended [place] patient eval of pt - nocturnal [...] the patients recent sleep study - recommended [place] patient eval of pt - nocturnal [...] case with Faiza's daughter who had left [facility]. She is interested in looking at assisted living facilities for her mom as Faiza's family is for assisted living placement sooner rather than later. 10/12/2015 Appointment: Yarely Vega [facility]el: [phone] (15 min) Moderate 10/12/2015 Patient Education: Patient [...] Completed 08/17/2015 Appointment: Yarely Vega [facility]Ptel: [phone] [facility] (15 min) Moderate 08/11/2015 Appointment: Injection 08/06/2015 [...] 2 05/19/2015 Appointment: Yarely Vega [facility]Ptel: [phone] (30 min) Complex 05/19/2015 Patient Education: Patient [...] prn alprazolam. 01/13/2015 Appointment: Yarely Vega WPtel: [facility] (15 min) Moderate 01/13/2015 Patient Education: Patient [...] medications. 12/16/2014 App[facility]ment: [phone] [place] ([place] New Patient 12/16/2014 Patient [...] rather than later. . b12 injection . Chest Pain - pt states that she has had chest pain off an on, she states that it goes down her left arm and to her back. She states that she has had some nausea. Will check labs and order EKG - pt is to notify clinic if symptoms return, or with any concerns. . Jbxpux-[id number]-[id number] protonix-follow up with Dr Navarro as scheduled [...] Fatigue/malaise -Pt was advsied to ask the [employer] L[employer] Operator the following: ask the heart doctor [...] cryotherapy of skin lesions x 2 . Hypertension - well controlled - continue [...] the patients recent sleep study - recommended [place] home patient eval of pt - nocturnal oxygen study - will order - if positive oxygen concentrator with humidification. use dry eye drops in the morning and at bedtime. restart the meloxicam . Shoulder pain - suspect a tendon rupture or partial tear - referral to dr cat for shoulder injections - pt is not interested in surgical intervention. ask the heart doctor if there is [...] Fatigue/malaise -Pt was advsied to ask the Chucking Lathe Operator the following: ask the heart doctor [...] wall. Fatigue - pt to discuss with [employer] Lathe Operator about the possibility of amiodarone causing [...] the patients recent sleep study - recommended [place] home patient eval of pt - nocturnal [...] topamax - increase dose to twice daily. Stop Keflex Start Doxycycline - probiotic while [...] control. headaches - take topamax at bedtime Schedule thyroid ultrasound Add T3 and digoxin [...] situational exposure. No change in current medications. loratadine - generic for CLARITIN - take [...] topamax - increase dose to twice daily. CLARITIN FLONASE KENALOG INJECTION TODAY CALL IF SYMPTOMS DO NOT RESOLVE . URI - Pt advised to increase fluids, vitamin C. Discussed natural and expected course of this diagnosis and need to alert me if symptoms do not follow expected course, or if any worse. . Medicare Exam - today we discussed [...] control. Abdominal pain - continue with carafate Power Pudding: equal parts of prune juice, [...]
--- OUTSIDE RECORDS SUMMARY | 2018-12-05 19:58 | XMS REPORT | CCD ---
Author Author [facility] Organization [facility] Address [address] [place] [address] Phone Care Team Providers Care Assembler Knife Name Role Phone PP Unavailable CCM Unavailable Summary Purpose Interface Exchange Insurance Providers Payer name Policy type / Coverage type Covered green party ID Effective Begin Date Effective End Date WPS Medicare Part B Medicare Part B [id number] Unknown Principal Life Insurance Medicare Part B [id number] Unknown Family history Brother Diagnosis Age At Onset Heart Attack Unknown Mother Diagnosis Age At Onset Hypertension Unknown kidney disease Unknown Stroke Unknown Father Diagnosis Age At Onset Arthritis Unknown Social History Social History Element Codes Description Effective Dates Employment Unknown Retired worked at [employer] 11/20/2017 Marital status Unknown Single 12/16/[address]: 7943838 Former smoker 12/16/[address]: 989967012 Never drinks alcohol 12/16/2014 Allergies, Adverse Reactions, Alerts Substance Reaction Codes Entered Date Inactivated Date Status CODEINE RxNorm: 2670 05/25/2016 No Inactive Date Active ciprofloxacin RxNorm: 34220 12/16/2014 No Inactive Date Active MORPHINE SULFATE [...] (vit B-12) 1,000 mcg/mL injection solution RxNorm: 502905 INJECT ONE 1 ML EVERY TWO WEEKS 05/03/2018 04/03/2019 Active 05/03/2018 9:13:42 AM Mobic 15 mg tablet RxNorm: 218241 Tablet(s) 1 Tablet(s) PO daily 04/26/2018 04/20/2019 Active buspirone 15 mg tablet RxNorm: 514024 Tablet(s) TAKE 1 TABLET BY MOUTH TWICE DAILY 04/26/2018 04/20/2019 Active Generic For:BUSPAR 15MG 05/31/2017 9:19:20 AM Norvasc 5 mg tablet RxNorm: 639479 Tablet(s) 1 Tablet(s) PO daily 04/26/2018 04/20/2019 Active cyanocobalamin (vit B-12) 1,000 mcg/mL injection solution RxNorm: 509325 Milliliter(s) Inj 04/26/2018 04/26/2018 Inactive hydrocodone 5 mg-acetaminophen 325 mg tablet RxNorm: 170777 1-2 Tablet(s) PO Q6 as needed for pain 04/25/2018 05/24/2018 Active cyanocobalamin (vit B-12) 1,000 mcg/mL injection solution RxNorm: 771716 Milliliter(s) Inj 04/12/2018 04/12/2018 Inactive Topamax 25 mg tablet RxNorm: 535800 1 Tablet(s) PO BID 04/09/2018 08/06/2018 Active Generic For:TOPAMAX 25MG 12/06/2016 9:15:13 AM Zoloft 50 mg tablet RxNorm: 321994 TAKE 1 TABLET BY MOUTH ONCE DAILY 04/04/2018 12/29/2018 Active Generic For:ZOLOFT 50MG 04/04/2018 9:13:25 AM cyanocobalamin (vit B-12) 1,000 mcg/mL injection solution RxNorm: 439002 Milliliter(s) Inj 03/30/2018 03/30/2018 Inactive levothyroxine 125 mcg tablet RxNorm: 956194 TAKE 1 TABLET BY MOUTH EVERY DAY 03/26/2018 09/21/2018 Active Generic For:SYNTHROID 125MCG TAB 03/26/2018 9:15:59 AM liothyronine 5 mcg tablet RxNorm: 826143 TAKE 1 TABLET BY MOUTH TWICE DAILY 03/26/2018 09/21/2018 Active Generic For:CYTOMEL 5MCG 03/26/2018 9:15:54 AM hydrocodone 5 mg-acetaminophen 325 mg tablet RxNorm: 577880 1-2 Tablet(s) PO Q6 as needed for pain 03/19/2018 04/17/2018 Inactive cyanocobalamin (vit B-12) 1,000 mcg/mL injection solution RxNorm: 854265 Milliliter(s) Inj 03/16/2018 03/16/2018 Inactive Flonase Allergy Relief 50 mcg/actuation nasal spray,suspension RxNorm: 5394571 1 [place] NASAL BID 03/05/2018 07/02/2018 Active cyanocobalamin (vit B-12) 1,000 mcg/mL injection solution RxNorm: 223198 Milliliter(s) Inj 03/02/2018 03/02/2018 Inactive alprazolam 0.25 mg tablet RxNorm: 518583 1 Tablet(s) PO BID 02/28/2018 05/28/2018 Active cyanocobalamin (vit B-12) 1,000 mcg/mL injection solution RxNorm: 584346 Milliliter(s) Inj 02/08/2018 02/08/2018 Inactive albuterol sulfate 2.5 mg/3 mL (0.083 %) solution for nebulization RxNorm: 628537 3 Milliliter(s) INH Q6 PRN 01/24/2018 No Stop Date Active cyanocobalamin (vit B-12) 1,000 mcg/mL injection solution RxNorm: 605775 Milliliter(s) Inj 01/24/2018 01/24/2018 Inactive Claritin 10 mg tablet RxNorm: 245043 1 Tablet(s) PO daily 01/15/2018 05/14/2018 Active cyanocobalamin (vit B-12) 1,000 mcg/mL injection solution RxNorm: 701268 Milliliter(s) Inj 01/10/2018 01/10/2018 Inactive hydrocodone 5 mg-acetaminophen 325 mg tablet RxNorm: 293768 1-2 Tablet(s) PO Q6 as needed for pain 01/09/2018 02/07/2018 Inactive cyanocobalamin (vit B-12) 1,000 mcg/mL injection solution RxNorm: 680884 Milliliter(s) Inj 12/27/2017 12/27/2017 Inactive cyanocobalamin (vit B-12) 1,000 mcg/mL injection solution RxNorm: 971922 1 Milliliter(s) Inj 12/12/2017 12/12/2017 Inactive Zofran ODT 4 mg disintegrating tablet RxNorm: 386151 1 Tablet(s) PO TID as needed 12/08/2017 12/09/2017 Inactive hydrocodone 2.5 mg-guaifenesin 200 mg/5 mL oral solution RxNorm: 341887 5 Milliliter(s) PO 12/04/2017 No Stop Date Active doxycycline hyclate 100 mg capsule RxNorm: 1005865 1 Capsule(s) PO BID 12/04/2017 12/13/2017 Inactive cyanocobalamin (vit B-12) 1,000 mcg/mL injection solution RxNorm: 372095 Milliliter(s) Inj 12/01/2017 12/01/2017 Inactive Flonase Allergy Relief 50 mcg/actuation nasal spray,suspension RxNorm: 1213976 1 [place] NASAL BID 11/20/2017 2018 Inactive cyanocobalamin (vit B-12) 1,000 mcg/mL injection solution RxNorm: 222880 1 Milliliter(s) Inj 11/17/2017 11/17/2017 Inactive hydrocodone 5 mg-acetaminophen 325 mg tablet RxNorm: 791457 1-2 Tablet(s) PO Q6 as needed for pain 11/16/2017 12/15/2017 Inactive cyanocobalamin (vit B-12) 1,000 mcg/mL injection solution RxNorm: 020839 1 Milliliter(s) Inj 11/02/2017 11/02/2017 Inactive hydrocodone 5 mg-acetaminophen 325 mg tablet RxNorm: 997770 1-2 Tablet(s) PO Q6 as needed for pain 10/25/2017 11/15/2017 Inactive Claritin 10 mg tablet RxNorm: 395402 1 Tablet(s) PO daily 10/25/2017 11/19/2017 Inactive albuterol sulfate 2.5 mg/3 mL (0.083 %) solution for nebulization RxNorm: 476842 3 Milliliter(s) INH Q6 PRN 10/25/2017 01/23/2018 Inactive Claritin 10 mg tablet RxNorm: 738626 1 Tablet(s) PO daily 10/25/2017 10/24/2017 Inactive cyanocobalamin (vit B-12) 1,000 mcg/mL injection solution RxNorm: 706249 1 Milliliter(s) Inj 10/20/2017 10/20/2017 Inactive Zoloft 50 mg tablet RxNorm: 116960 TAKE 1 TABLET BY MOUTH ONCE DAILY 10/13/2017 04/03/2018 Inactive Generic For:ZOLOFT 50MG 10/13/2017 8:59:44 AM cyanocobalamin (vit B-12) 1,000 mcg/mL injection solution RxNorm: 225448 Milliliter(s) Inj 10/06/2017 10/06/2017 Inactive liothyronine 5 mcg tablet RxNorm: 504697 TAKE 1 TABLET BY MOUTH TWICE DAILY 10/03/2017 03/25/2018 Inactive Generic For:CYTOMEL 5MCG 10/03/2017 9:13:38 AM cyanocobalamin (vit B-12) 1,000 mcg/mL injection solution RxNorm: 749791 Milliliter(s) Inj 09/21/2017 09/21/2017 Inactive albuterol sulfate 2.5 mg/3 mL (0.083 %) solution for nebulization RxNorm: 030573 3 Milliliter(s) INH Q6 PRN 09/21/2017 10/24/2017 Inactive hydrocodone 5 mg-acetaminophen 325 mg tablet RxNorm: 623365 1-2 Tablet(s) PO Q6 as needed for pain 09/21/2017 10/20/2017 Inactive Kenalog 40 mg/mL suspension for injection RxNorm: 5516110 Milliliter(s) Inj 09/15/2017 09/15/2017 Inactive Keflex 500 mg capsule RxNorm: 660829 1 Capsule(s) PO TID 09/07/2017 09/16/2017 Inactive Please deliver to patient cyanocobalamin (vit B-12) 1,000 mcg/mL injection solution RxNorm: 641271 Milliliter(s) Inj 09/07/2017 09/07/2017 Inactive Aricept 10 mg tablet RxNorm: 434795 1 Tablet(s) PO daily 09/06/2017 08/31/2018 Active alprazolam 0.25 mg tablet RxNorm: 970237 1 Tablet(s) PO BID 09/06/2017 02/27/2018 Inactive hydrocodone 5 mg-acetaminophen 325 mg tablet RxNorm: 741799 1-2 Tablet(s) PO Q6 as needed for pain 08/24/2017 09/20/2017 Inactive cyanocobalamin (vit B-12) 1,000 mcg/mL injection solution RxNorm: 626433 Milliliter(s) Inj 08/24/2017 08/24/2017 Inactive Norvasc 5 mg tablet RxNorm: 478246 1 Tablet(s) PO daily 08/18/2017 04/25/2018 Inactive nystatin 100,000 unit/gram topical powder RxNorm: 311888 1 Gram(s) TOP QID 08/17/2017 08/26/2017 Inactive hydrocodone 5 mg-acetaminophen 325 mg tablet RxNorm: 452214 1-2 Tablet(s) PO Q6 as needed for pain 07/25/2017 08/23/2017 Inactive Tamiflu 75 mg capsule RxNorm: 867032 1 Capsule(s) PO BID 07/24/2017 12/11/2017 Inactive nystatin 100,000 unit/gram topical powder RxNorm: 969161 1 Gram(s) TOP QID 07/14/2017 07/22/2017 Inactive levothyroxine 125 mcg tablet RxNorm: 079739 Tablet(s) 1 Tablet(s) PO daily 07/10/2017 01/05/2018 Inactive nystatin 100,000 unit/gram topical powder RxNorm: 826320 1 Gram(s) TOP QID 07/06/2017 07/13/2017 Inactive cyanocobalamin (vit B-12) 1,000 mcg/mL injection solution RxNorm: 508053 Milliliter(s) Inj 07/06/2017 07/06/2017 Inactive Kenalog 40 mg/mL suspension for injection RxNorm: 5010742 1 Milliliter(s) Inj 06/20/2017 06/20/2017 Inactive doxycycline hyclate 100 mg capsule RxNorm: 2113305 1 Capsule(s) PO BID 06/20/2017 06/26/2017 Inactive cyanocobalamin (vit B-12) 1,000 mcg/mL injection solution RxNorm: 623952 Milliliter(s) Inj 06/20/2017 06/20/2017 Inactive Keflex 500 mg capsule RxNorm: 659073 1 Capsule(s) PO TID 06/14/2017 06/23/2017 Inactive Please deliver to patient Mobic 15 mg tablet RxNorm: 271885 1 Tablet(s) PO daily 06/14/2017 04/25/2018 Inactive cyanocobalamin (vit B-12) 1,000 mcg/mL injection solution RxNorm: 223769 Milliliter(s) Inj 06/05/2017 06/05/2017 Inactive buspirone 15 mg tablet RxNorm: 251650 TAKE 1 TABLET BY MOUTH TWICE DAILY 05/31/2017 04/25/2018 Inactive Generic For:BUSPAR 15MG 05/31/2017 9:19:20 AM cyanocobalamin (vit B-12) 1,000 mcg/mL injection solution RxNorm: 290356 Milliliter(s) Inj 05/25/2017 05/25/2017 Inactive hydrocodone 5 mg-acetaminophen 325 mg tablet RxNorm: 313808 1-2 Tablet(s) PO Q6 as needed for pain 05/25/2017 06/23/2017 Inactive amiodarone 200 mg tablet RxNorm: 834381 1/2 Tablet(s) PO daily 05/22/2017 No Stop Date Active cardiology decreased to 100mg daily cyanocobalamin (vit B-12) 1,000 mcg/mL injection solution RxNorm: 891505 Milliliter(s) Inj 05/16/2017 05/16/2017 Inactive Zofran ODT 4 mg disintegrating tablet RxNorm: 703482 1 Tablet(s) PO TID as needed 05/03/2017 05/04/2017 Inactive hydrocodone 5 mg-acetaminophen 325 mg tablet RxNorm: 580519 1-2 Tablet(s) PO Q6 as needed for pain 05/01/2017 05/05/2017 Inactive cyanocobalamin (vit B-12) 1,000 mcg/mL injection solution RxNorm: 504793 1 Milliliter(s) Inj 05/01/2017 05/01/2017 Inactive cyanocobalamin (vit B-12) 1,000 mcg/mL injection solution RxNorm: 103669 INJECT ONE 1 ML EVERY TWO WEEKS 04/26/2017 12/04/2018 Active 04/26/2017 9:08:52 AM Zoloft 50 mg tablet RxNorm: 871945 Tablet(s) TAKE 1 TABLET BY MOUTH DAILY 04/25/2017 10/12/2017 Inactive Generic For:ZOLOFT 50MG cyanocobalamin (vit B-12) 1,000 mcg/mL injection solution RxNorm: 711585 Milliliter(s) Inj 04/18/2017 04/18/2017 Inactive liothyronine 5 mcg tablet RxNorm: 773409 1 Tablet(s) PO BID 04/13/2017 10/02/2017 Inactive cyanocobalamin (vit B-12) 1,000 mcg/mL injection solution RxNorm: 876739 Milliliter(s) Inj 04/06/2017 04/06/2017 Inactive hydrocodone 5 mg-acetaminophen 325 mg tablet RxNorm: 994923 1-2 Tablet(s) PO Q6 as needed for pain 04/06/2017 04/10/2017 Inactive cyanocobalamin (vit B-12) 1,000 mcg/mL injection solution RxNorm: 660151 Milliliter(s) Inj 03/22/2017 03/22/2017 Inactive alprazolam 0.25 mg tablet RxNorm: 360288 1 Tablet(s) PO BID 03/17/2017 12/11/2017 Inactive alprazolam 0.25 mg tablet RxNorm: 749479 1 Tablet(s) PO BID 03/16/2017 09/05/2017 Inactive hydrocodone 5 mg-acetaminophen 325 mg tablet RxNorm: 740327 1-2 Tablet(s) PO Q6 as needed for pain 03/09/2017 03/13/2017 Inactive cyanocobalamin (vit B-12) 1,000 mcg/mL injection solution RxNorm: 041164 Milliliter(s) Inj 03/09/2017 03/09/2017 Inactive cyanocobalamin (vit B-12) 1,000 mcg/mL injection solution RxNorm: 213553 Milliliter(s) Inj 02/23/2017 02/23/2017 Inactive cyanocobalamin (vit B-12) 1,000 mcg/mL injection solution RxNorm: 135442 Milliliter(s) Inj 02/09/2017 02/09/2017 Inactive hydrocodone 5 mg-acetaminophen 325 mg tablet RxNorm: 307701 1-2 Tablet(s) PO Q6 as needed for pain 02/08/2017 02/12/2017 Inactive Topamax 25 mg tablet RxNorm: 735875 1 Tablet(s) PO BID 01/23/2017 05/22/2017 Inactive Generic For:TOPAMAX 25MG 12/06/2016 9:15:13 AM cyanocobalamin (vit B-12) 1,000 mcg/mL injection solution RxNorm: 513861 Milliliter(s) Inj 01/23/2017 01/23/2017 Inactive cyanocobalamin (vit B-12) 1,000 mcg/mL injection solution RxNorm: 826467 Milliliter(s) Inj 01/10/2017 01/10/2017 Inactive hydrocodone 5 mg-acetaminophen 325 mg tablet RxNorm: 852347 1-2 Tablet(s) PO Q6 as needed for pain 01/09/2017 01/13/2017 Inactive cyanocobalamin (vit B-12) 1,000 mcg/mL injection solution RxNorm: 519031 1 Milliliter(s) Inj 12/28/2016 12/28/2016 Inactive cyanocobalamin (vit B-12) 1,000 mcg/mL injection solution RxNorm: 654540 Milliliter(s) Inj 12/14/2016 12/14/2016 Inactive buspirone 15 mg tablet RxNorm: 895540 1 Tablet(s) PO BID 12/12/2016 05/30/2017 Inactive hydrocodone 5 mg-acetaminophen 325 mg tablet RxNorm: 662800 1-2 Tablet(s) PO Q6 as needed for pain 12/08/2016 12/12/2016 Inactive Topamax 25 mg tablet RxNorm: 351739 TAKE 1 TABLET BY MOUTH EVERY DAY AT BEDTIME 12/06/2016 01/22/2017 Inactive Generic For:TOPAMAX 25MG 12/06/2016 9:15:13 AM Lac-Hydrin Five 5 % lotion RxNorm: 748281 1 Gram(s) TOP daily 12/02/2016 01/30/2017 Inactive cyanocobalamin (vit B-12) 1,000 mcg/mL injection solution RxNorm: 479387 Milliliter(s) Inj 11/24/2016 11/24/2016 Inactive Ceftin 500 mg tablet RxNorm: 568868 1 Tablet(s) PO BID 11/11/2016 06/13/2017 Inactive Cipro 500 mg tablet RxNorm: 353198 1 Tablet(s) PO BID 11/11/2016 11/10/2016 Inactive Cipro 500 mg tablet RxNorm: 549254 1 Tablet(s) PO BID 11/11/2016 11/11/2016 Inactive cyanocobalamin (vit B-12) 1,000 mcg/mL injection solution RxNorm: 122865 1 Milliliter(s) Inj 11/07/2016 11/07/2016 Inactive hydrocodone 5 mg-acetaminophen 325 mg tablet RxNorm: 876800 1-2 Tablet(s) PO Q6 as needed for pain 11/02/2016 11/06/2016 Inactive cyanocobalamin (vit B-12) 1,000 mcg/mL injection solution RxNorm: 245318 Milliliter(s) Inj 10/24/2016 10/24/2016 Inactive levothyroxine 125 mcg tablet RxNorm: 114806 Tablet(s) 1 Tablet(s) PO daily 10/24/2016 04/21/2017 Inactive liothyronine 5 mcg tablet RxNorm: 699495 1 Tablet(s) PO BID 10/24/2016 04/12/2017 Inactive hydrocodone 5 mg-acetaminophen 325 mg tablet RxNorm: 359170 1-2 Tablet(s) PO Q6 as needed for pain 10/17/2016 10/21/2016 Inactive Keflex 500 mg capsule RxNorm: 356664 1 Capsule(s) PO TID 10/07/2016 10/06/2016 Inactive Keflex 500 mg capsule RxNorm: 391455 1 Capsule(s) PO TID 10/07/2016 10/16/2016 Inactive Please deliver to patient cyanocobalamin (vit B-12) 1,000 mcg/mL injection solution RxNorm: 772484 1 Milliliter(s) Inj 09/29/2016 09/29/2016 Inactive alprazolam 0.25 mg tablet RxNorm: 301024 1 Tablet(s) PO BID 09/20/2016 03/16/2017 Inactive Cozaar 100 mg tablet RxNorm: 456447 1 Tablet(s) PO daily 09/14/2016 No Stop Date Active metoprolol tartrate 50 mg tablet RxNorm: 702815 1/2 Tablet(s) PO BID 09/14/2016 12/12/2016 Inactive Zoloft 50 mg tablet RxNorm: 943175 Tablet(s) TAKE 1 TABLET BY MOUTH DAILY 09/14/2016 03/12/2017 Inactive Generic For:ZOLOFT 50MG liothyronine 5 mcg tablet RxNorm: 012654 1 Tablet(s) PO BID 09/14/2016 10/23/2016 Inactive Calmoseptine 0.44 %-20.6 % topical ointment RxNorm: 880757 1 Application TOP BID and as needed to sore on buttocks 09/07/2016 No Stop Date Active cyanocobalamin (vit B-12) 1,000 mcg/mL injection solution RxNorm: 358140 Milliliter(s) Inj 08/29/2016 08/29/2016 Inactive hydrocodone 5 mg-acetaminophen 325 mg tablet RxNorm: 577620 1-2 Tablet(s) PO Q6 as needed for pain 08/29/2016 10/16/2016 Inactive levothyroxine 125 mcg tablet RxNorm: 076467 1 Tablet(s) PO daily 08/25/2016 10/23/2016 Inactive Topamax 25 mg tablet RxNorm: 505696 TAKE 1 TABLET BY MOUTH EVERY DAY AT BEDTIME 08/17/2016 12/05/2016 Inactive Generic For:TOPAMAX 25MG 08/17/2016 2:14:37 PM hydrocodone 5 mg-acetaminophen 325 mg tablet RxNorm: 740644 1-2 Tablet(s) PO Q6 as needed for pain 08/11/2016 08/28/2016 Inactive hydrocodone 5 mg-acetaminophen 325 mg tablet RxNorm: 354719 1 -2 Tablet(s) PO Q6 as needed for pain 08/11/2016 08/18/2016 Inactive hydrocodone 5 mg-acetaminophen 325 mg tablet RxNorm: 136850 1 Tablet(s) PO Q6 as needed for pain 08/05/2016 08/10/2016 Inactive cyanocobalamin (vit B-12) 1,000 mcg/mL injection solution RxNorm: 425895 Milliliter(s) Inj 08/04/2016 08/04/2016 Inactive Norvasc 10 mg tablet RxNorm: 355128 1 Tablet(s) PO daily 07/26/2016 07/20/2017 Inactive alprazolam 0.25 mg tablet RxNorm: 785555 1 Tablet(s) PO QHS 07/21/2016 09/19/2016 Inactive Norvasc 5 mg tablet RxNorm: 527134 1 Tablet(s) PO daily 07/21/2016 07/25/2016 Inactive levothyroxine 125 mcg tablet RxNorm: 010941 1 Tablet(s) PO daily 07/21/2016 12/11/2017 Inactive cyanocobalamin (vit B-12) 1,000 mcg/mL injection solution RxNorm: 368101 Milliliter(s) Inj 07/21/2016 07/21/2016 Inactive Zoloft 50 mg tablet RxNorm: 924439 Tablet(s) TAKE 1 TABLET BY MOUTH DAILY 07/21/2016 09/13/2016 Inactive Generic For:ZOLOFT 50MG cyanocobalamin (vit B-12) 1,000 mcg/mL injection solution RxNorm: 078949 1 Milliliter(s) Inj 07/05/2016 07/05/2016 Inactive cyanocobalamin (vit B-12) 1,000 mcg/mL injection solution RxNorm: 888890 1 Milliliter(s) Inj 06/22/2016 06/22/2016 Inactive cyanocobalamin (vit B-12) 1,000 mcg/mL injection solution RxNorm: 649515 Milliliter(s) Inj 06/09/2016 06/09/2016 Inactive Aricept 10 mg tablet RxNorm: 283443 1 Tablet(s) PO daily 05/27/2016 05/21/2017 Inactive Mobic 15 mg tablet RxNorm: 983368 1 Tablet(s) PO daily 05/27/2016 05/21/2017 Inactive levothyroxine 125 mcg tablet RxNorm: 187987 1 Tablet(s) PO daily 05/25/2016 07/20/2016 Inactive cyanocobalamin (vit B-12) 1,000 mcg/mL injection solution RxNorm: 189512 1 Milliliter(s) Inj 05/25/2016 05/25/2016 Inactive doxycycline hyclate 100 mg capsule RxNorm: 6733051 1 Capsule(s) PO BID 05/16/2016 05/15/2016 Inactive doxycycline hyclate 100 mg capsule RxNorm: 7551026 1 Capsule(s) PO BID 05/16/2016 05/22/2016 Inactive cyanocobalamin (vit B-12) 1,000 mcg/mL injection solution RxNorm: 125238 Milliliter(s) Inj 05/10/2016 05/10/2016 Inactive cyanocobalamin (vit B-12) 1,000 mcg/mL injection solution RxNorm: 066959 Milliliter(s) Inj 04/26/2016 04/26/2016 Inactive Topamax 25 mg tablet RxNorm: 429356 1 Tablet(s) PO QPM 04/22/2016 08/16/2016 Inactive cyanocobalamin (vit B-12) 1,000 mcg/mL injection solution RxNorm: 007898 Milliliter(s) 1 Milliliter(s) Inj [id number] 04/11/2016 12/31/2017 Inactive liothyronine 5 mcg tablet RxNorm: 686201 1 Tablet(s) PO BID 04/11/2016 09/13/2016 Inactive cyanocobalamin (vit B-12) 1,000 mcg/mL injection solution RxNorm: 181868 Milliliter(s) Inj 04/11/2016 04/11/2016 Inactive cyanocobalamin (vit B-12) 1,000 mcg/mL injection solution RxNorm: 808197 Milliliter(s) Inj 03/31/2016 03/31/2016 Inactive cyanocobalamin (vit B-12) 1,000 mcg/mL injection solution RxNorm: 302287 1 Milliliter(s) Inj 03/15/2016 03/15/2016 Inactive levothyroxine 125 mcg tablet RxNorm: 660475 1 Tablet(s) PO daily 2016 03/03/2016 Inactive levothyroxine 125 mcg tablet RxNorm: 451732 1 Tablet(s) PO daily 2016 05/24/2016 Inactive cyanocobalamin (vit B-12) 1,000 mcg/mL injection solution RxNorm: 565083 Milliliter(s) Inj 02/25/2016 02/25/2016 Inactive cyanocobalamin (vit B-12) 1,000 mcg/mL injection solution RxNorm: 522005 1 Milliliter(s) Inj 02/02/2016 02/02/2016 Inactive sucralfate 1 gram tablet RxNorm: 399266 1 Tablet(s) PO QHS 01/25/2016 No Stop Date Active amiodarone 200 mg tablet RxNorm: 160836 1/2 Tablet(s) PO BID 01/25/2016 05/21/2017 Inactive cyanocobalamin (vit B-12) 1,000 mcg/mL injection solution RxNorm: 325377 Milliliter(s) Inj 01/18/2016 01/18/2016 Inactive cyanocobalamin (vit B-12) 1,000 mcg/mL injection solution RxNorm: 470947 Milliliter(s) Inj 12/29/2015 12/29/2015 Inactive Topamax 25 mg tablet RxNorm: 180225 1 Tablet(s) PO QPM 12/08/2015 04/05/2016 Inactive cyanocobalamin (vit B-12) 1,000 mcg/mL injection solution RxNorm: 897720 Milliliter(s) Inj 12/08/2015 12/08/2015 Inactive Bactrim DS 800 mg-160 mg tablet RxNorm: 490206 1 Tablet(s) PO BID 11/23/2015 11/22/2015 Inactive cyanocobalamin (vit B-12) 1,000 mcg/mL injection solution RxNorm: 944987 Milliliter(s) Inj 11/23/2015 11/23/2015 Inactive Bactrim DS 800 mg-160 mg tablet RxNorm: 170679 1 Tablet(s) PO BID 11/23/2015 11/29/2015 Inactive cyanocobalamin (vit B-12) 1,000 mcg/mL injection solution RxNorm: 209491 Milliliter(s) Inj 11/11/2015 11/11/2015 Inactive amoxicillin 500 mg capsule RxNorm: 510022 1 Capsule(s) PO TID 11/10/2015 11/19/2015 Inactive Zithromax Z-Henrique 250 mg tablet RxNorm: 740746 1 Tablet(s) PO UD 11/10/2015 01/24/2016 Inactive zpack x 1 amoxicillin 500 mg capsule RxNorm: 418277 1 Capsule(s) PO TID 11/10/2015 11/09/2015 Inactive cyanocobalamin (vit B-12) 1,000 mcg/mL injection solution RxNorm: 782439 1 Milliliter(s) Inj 10/29/2015 10/29/2015 Inactive [place] 3 capsule RxNorm: 1 Capsule(s) PO QAM , 2 Capsules at noon, 1 Capsule QHS 10/13/2015 No Stop Date Active potassium chloride ER 20 mEq tablet,extended release RxNorm: 838949 2 Tablet(s) PO daily at noon 10/13/2015 No Stop Date Active alprazolam 0.25 mg tablet RxNorm: 053514 1 Tablet(s) PO QHS 10/13/2015 07/20/2016 Inactive amiodarone 200 mg tablet RxNorm: 599691 1 Tablet(s) PO BID 10/13/2015 01/24/2016 Inactive cyanocobalamin (vit B-12) 1,000 mcg/mL injection solution RxNorm: 024106 1 Milliliter(s) Inj 10/12/2015 10/12/2015 Inactive Zofran 4 mg tablet RxNorm: 442825 1 Tablet(s) PO daily as needed 10/07/2015 05/24/2016 Inactive Zoloft 50 mg tablet RxNorm: 197377 TAKE 1 TABLET BY MOUTH DAILY 10/05/2015 05/01/2016 Inactive Generic For:ZOLOFT 50MG cyanocobalamin (vit B-12) 1,000 mcg/mL injection solution RxNorm: 957425 1 Milliliter(s) Inj 09/29/2015 09/29/2015 Inactive cyanocobalamin (vit B-12) 1,000 mcg/mL injection solution RxNorm: 251565 1 Milliliter(s) Inj 09/17/2015 09/17/2015 Inactive Norvasc 5 mg tablet RxNorm: 642550 1 Tablet(s) PO daily 09/17/2015 07/20/2016 Inactive liothyronine 5 mcg tablet RxNorm: 729298 1 Tablet(s) PO BID 09/17/2015 03/14/2016 Inactive Zoloft 50 mg tablet RxNorm: 792443 1 Tablet(s) PO daily 09/17/2015 10/04/2015 Inactive buspirone 15 mg tablet RxNorm: 995062 1 Tablet(s) PO BID 09/17/2015 09/10/2016 Inactive buspirone 15 mg tablet RxNorm: 587385 1 Tablet(s) PO BID 09/14/2015 09/16/2015 Inactive Topamax 25 mg tablet RxNorm: 038215 1 Tablet(s) PO QPM 09/03/2015 12/07/2015 Inactive cyanocobalamin (vit B-12) 1,000 mcg/mL injection solution RxNorm: 805483 1 Milliliter(s) Inj 09/03/2015 09/03/2015 Inactive cyanocobalamin (vit B-12) 1,000 mcg/mL injection solution RxNorm: 994025 Milliliter(s) Inj 08/17/2015 08/17/2015 Inactive cyanocobalamin (vit B-12) 1,000 mcg/mL injection solution RxNorm: 779384 Milliliter(s) Inj 08/06/2015 08/06/2015 Inactive levothyroxine 150 mcg tablet RxNorm: 166165 1 Tablet(s) PO daily 07/22/2015 03/03/2016 Inactive Aricept 10 mg tablet RxNorm: 507964 1 Tablet(s) PO daily 07/22/2015 05/26/2016 Inactive Mobic 15 mg tablet RxNorm: 435489 1 Tablet(s) PO daily 07/22/2015 05/26/2016 Inactive cyanocobalamin (vit B-12) 1,000 mcg/mL injection solution RxNorm: 469547 Milliliter(s) Inj 07/22/2015 07/22/2015 Inactive liothyronine 5 mcg tablet RxNorm: 806499 1 Tablet(s) PO BID 07/22/2015 09/16/2015 Inactive cyanocobalamin (vit B-12) 1,000 mcg/mL injection solution RxNorm: 477582 Milliliter(s) Inj 07/08/2015 07/08/2015 Inactive cyanocobalamin (vit B-12) 1,000 mcg/mL injection solution RxNorm: 741923 Milliliter(s) Inj 06/23/2015 06/23/2015 Inactive cyanocobalamin (vit B-12) 1,000 mcg/mL injection solution RxNorm: 054216 1 Milliliter(s) Inj 06/08/2015 06/08/2015 Inactive cyanocobalamin (vit B-12) 1,000 mcg/mL injection solution RxNorm: 716544 Milliliter(s) Inj 05/27/2015 05/27/2015 Inactive Aricept 10 mg tablet RxNorm: 007350 1 Tablet(s) PO daily 05/20/2015 07/21/2015 Inactive Zofran 4 mg tablet RxNorm: 508647 1 Tablet(s) PO daily as needed 05/20/2015 06/18/2015 Inactive alprazolam 0.25 mg tablet RxNorm: 560272 1 Tablet(s) PO BID 05/20/2015 10/12/2015 Inactive Mobic 15 mg tablet RxNorm: 818936 1 Tablet(s) PO daily 05/20/2015 07/21/2015 Inactive tramadol ER 100 mg tablet,extended release 24 hr RxNorm: 818502 1 Tablet(s) PO Q6 as needed 05/13/2015 No Stop Date Active cyanocobalamin (vit B-12) 1,000 mcg/mL injection solution RxNorm: 341425 1 Milliliter(s) Inj 05/12/2015 05/12/2015 Inactive Topamax 25 mg tablet RxNorm: 351584 1 Tablet(s) PO BID (start at one pill at bedtime x 1week then twice daily thereafter) 05/12/2015 09/02/2015 Inactive cyanocobalamin (vit B-12) 1,000 mcg/mL injection kit RxNorm: 858648 kit Inj 04/30/2015 04/30/2015 Inactive cyanocobalamin (vit B-12) 1,000 mcg/mL injection solution RxNorm: 131225 Milliliter(s) Inj 04/16/2015 04/16/2015 Inactive levothyroxine 150 mcg tablet RxNorm: 858654 1 Tablet(s) PO daily 04/08/2015 07/21/2015 Inactive cyanocobalamin (vit B-12) 1,000 mcg/mL injection solution RxNorm: 881579 Milliliter(s) 1 Milliliter(s) Inj I0lrahr 04/08/2015 04/10/2016 Inactive Cytomel 5 mcg tablet RxNorm: 997239 1 Tablet(s) PO BID 04/08/2015 10/12/2015 Inactive Cytomel 5 mcg tablet RxNorm: 501920 1 Tablet(s) PO BID 04/07/2015 04/07/2015 Inactive Cytomel 5 mcg tablet RxNorm: 291378 1 Tablet(s) PO BID 04/07/2015 04/06/2015 Inactive cyanocobalamin (vit B-12) 1,000 mcg/mL injection solution RxNorm: 576340 Milliliter(s) Inj 04/02/2015 04/02/2015 Inactive cyanocobalamin (vit B-12) 1,000 mcg/mL injection solution RxNorm: 691905 Milliliter(s) Inj 03/18/2015 03/18/2015 Inactive cyanocobalamin (vit B-12) 1,000 mcg/mL injection solution RxNorm: 929051 Milliliter(s) 1 Milliliter(s) Inj [id number] 03/18/2015 04/07/2015 Inactive cyanocobalamin (vit B-12) 1,000 mcg/mL injection solution RxNorm: 912030 1 Milliliter(s) Inj I1cavxh 03/16/2015 03/17/2015 Inactive cyanocobalamin (vit B-12) 1,000 mcg/mL injection solution RxNorm: 806131 Milliliter(s) Inj 03/03/2015 03/03/2015 Inactive cyanocobalamin (vit B-12) 1,000 mcg/mL injection solution RxNorm: 999107 Milliliter(s) Inj 02/18/2015 02/18/2015 Inactive cyanocobalamin (vit B-12) 1,000 mcg/mL injection solution RxNorm: 394289 Milliliter(s) Inj 02/04/2015 02/04/2015 Inactive cyanocobalamin (vit B-12) 1,000 mcg/mL injection solution RxNorm: 293613 Milliliter(s) Inj 01/22/2015 01/22/2015 Inactive Lac-Hydrin Five 5 % lotion RxNorm: 421765 1 TOP daily 01/13/2015 03/13/2015 Inactive Lac-Hydrin Five 5 % lotion RxNorm: 362734 1 TOP daily 01/13/2015 01/12/2015 Inactive cyanocobalamin (vit B-12) 1,000 mcg/mL injection solution RxNorm: 010376 Milliliter(s) Inj 01/08/2015 01/08/2015 Inactive cyanocobalamin (vit B-12) 1,000 mcg/mL injection solution RxNorm: 817852 Milliliter(s) Inj 12/25/2014 12/25/2014 Inactive levothyroxine 150 mcg tablet RxNorm: 522174 1 Tablet(s) PO daily 12/24/2014 04/07/2015 Inactive tramadol 50 mg tablet RxNorm: 605870 1-2 Tablet(s) PO Q6 as needed 12/17/2014 05/12/2015 Inactive alprazolam 0.25 mg tablet RxNorm: 088361 1 Tablet(s) PO BID 12/17/2014 04/15/2015 Inactive Pradaxa 150 mg capsule RxNorm: 6583611 1 Capsule(s) PO BID 12/16/2014 No Stop Date Active metoprolol tartrate 50 mg tablet RxNorm: 351598 1/2 Tablet(s) PO BID 12/16/2014 09/13/2016 Inactive buspirone 15 mg tablet RxNorm: 510428 1 Tablet(s) PO BID 12/16/2014 09/13/2015 Inactive cyanocobalamin (vit B-12) 1,000 mcg/mL injection solution RxNorm: 788542 1 Milliliter(s) Inj Z5ljyrm 12/16/2014 03/15/2015 Inactive cyanocobalamin (vit B-12) 1,000 mcg/mL injection solution RxNorm: 197197 1 Milliliter(s) Inj W9sishy 12/16/2014 12/15/2014 Inactive sucralfate 1 gram tablet RxNorm: 391607 Tablet(s) PO QID 12/16/2014 12/10/2015 Inactive cyanocobalamin (vit B-12) 1,000 mcg/mL injection solution RxNorm: 019936 Milliliter(s) Inj 12/10/2014 12/10/2014 Inactive cyanocobalamin (vit B-12) 1,000 mcg/mL injection solution RxNorm: 363956 Milliliter(s) Inj 11/26/2014 11/26/2014 Inactive Zoloft 50 mg tablet RxNorm: 024933 1 Tablet(s) PO daily 11/24/2014 06/21/2015 Inactive Zoloft 50 mg tablet RxNorm: 495770 1 Tablet(s) PO daily 11/24/2014 11/23/2014 Inactive cyanocobalamin (vit B-12) 1,000 mcg/mL injection kit RxNorm: 180547 Milliliter(s) Inj 11/12/2014 11/12/2014 Inactive cyanocobalamin (vit B-12) 1,000 mcg/mL injection solution RxNorm: 037879 Milliliter(s) Inj 10/28/2014 10/28/2014 Inactive [SAVINGS FOR NON-COVERED DRUGS -- [id number], PCN: [id number], Group: [id number], ID# [id number], Questions: . THIS IS NOT INSURANCE.] promethazine oral RxNorm: 8745 oral No Start Date Active digoxin 125 mcg tablet RxNorm: 386419 Tablet(s) PO every other day No Start Date Active furosemide 40 mg tablet RxNorm: 816488 1 Tablet(s) PO daily No Start Date Active Vitamin D3 5,000 unit tablet RxNorm: 917864 1 Tablet(s) PO daily No Start Date Active erythromycin 250 mg capsule,delayed release RxNorm: 722672 1 Capsule(s) PO AC No Start Date Active Protonix 40 mg tablet,delayed release RxNorm: 443396 1 Tablet(s) PO BID No Start Date Active Cozaar 100 mg tablet RxNorm: 662457 1 Tablet(s) PO daily No Start Date 09/13/2016 Inactive sucralfate 1 gram tablet RxNorm: 939310 Tablet(s) PO QID No Start Date 12/15/2014 Inactive amiodarone 200 mg tablet RxNorm: 826262 2 Tablet(s) PO daily No Start Date 10/13/2015 Inactive buspirone 15 mg tablet RxNorm: 413887 1 Tablet(s) PO daily No Start Date 12/15/2014 Inactive potassium chloride ER 20 mEq tablet,extended release RxNorm: 507749 1 Tablet(s) PO daily No Start Date 10/12/2015 Inactive Prilosec 40 mg capsule,delayed release RxNorm: 507711 1 Capsule(s) PO daily No Start Date 09/02/2015 Inactive [place] 3 capsule RxNorm: Capsule(s) PO No Start Date 10/12/2015 Inactive alprazolam 0.25 mg tablet RxNorm: 829334 Tablet(s) PO QHS No Start Date 12/16/2014 Inactive levothyroxine 125 mcg tablet RxNorm: 206922 1 Tablet(s) PO daily No Start Date 12/23/2014 Inactive liothyronine 5 mcg tablet RxNorm: 150870 1 Tablet(s) PO BID No Start Date 07/21/2015 Inactive Mobic 15 mg tablet RxNorm: 981651 Tablet(s) PO daily No Start Date 05/19/2015 Inactive Norvasc 5 mg tablet RxNorm: 746858 1 Tablet(s) PO daily No Start Date 09/16/2015 Inactive Zofran 4 mg tablet RxNorm: 329881 1 Tablet(s) PO daily as needed No Start Date 05/19/2015 Inactive Tamiflu 75 mg capsule RxNorm: 676962 1 Capsule(s) PO BID No Start Date 07/23/2017 Inactive tramadol 50 mg tablet RxNorm: 189106 1 Tablet(s) PO daily as needed No Start Date 12/16/2014 Inactive amiodarone 200 mg tablet RxNorm: 745165 1 Tablet(s) PO daily No Start Date 10/12/2015 Inactive Zofran ODT 4 mg disintegrating tablet RxNorm: 943366 1 Tablet(s) PO TID as needed No Start Date 05/02/2017 Inactive albuterol sulfate 2.5 mg/3 mL (0.083 %) solution for nebulization RxNorm: 993705 3 Milliliter(s) INH Q6 PRN No Start Date 09/20/2017 Inactive meclizine 25 mg tablet RxNorm: 184447 Tablet(s) PO as needed No Start Date 05/24/2016 Inactive Pradaxa 150 mg capsule RxNorm: 3554152 1 Capsule(s) PO daily No Start Date 12/15/2014 Inactive metoprolol tartrate 50 mg tablet RxNorm: 174614 1/2 Tablet(s) PO No Start Date 12/15/2014 Inactive Aricept 10 mg tablet RxNorm: 264370 Tablet(s) PO daily No Start Date 05/19/2015 Inactive Calmoseptine 0.44 %-20.6 % topical ointment RxNorm: 863477 1 Application TOP BID and as needed to sore on buttocks No Start Date 09/06/2016 Inactive Zithromax Z-Henrique 250 mg tablet RxNorm: 540174 1 Tablet(s) PO UD No Start Date 11/09/2015 Inactive zpack x 1 Medication Administered Medication Codes Instructions Start Date Status cyanocobalamin (vit B-12) 1,000 mcg/mL injection solution RxNorm: 125663 Milliliter 04/26/2018 No longer Active cyanocobalamin (vit B-12) 1,000 mcg/mL injection solution RxNorm: 268613 Milliliter 04/12/2018 No longer Active cyanocobalamin (vit B-12) 1,000 mcg/mL injection solution RxNorm: 144669 Milliliter 03/30/2018 No longer Active cyanocobalamin (vit B-12) 1,000 mcg/mL injection solution RxNorm: 869244 Milliliter 03/16/2018 No longer Active cyanocobalamin (vit B-12) 1,000 mcg/mL injection solution RxNorm: 926223 Milliliter 03/02/2018 No longer Active cyanocobalamin (vit B-12) 1,000 mcg/mL injection solution RxNorm: 209348 Milliliter 02/08/2018 No longer Active cyanocobalamin (vit B-12) 1,000 mcg/mL injection solution RxNorm: 165740 Milliliter 01/24/2018 No longer Active cyanocobalamin (vit B-12) 1,000 mcg/mL injection solution RxNorm: 965476 Milliliter 01/10/2018 No longer Active cyanocobalamin (vit B-12) 1,000 mcg/mL injection solution RxNorm: 463743 Milliliter 12/27/2017 No longer Active cyanocobalamin (vit B-12) 1,000 mcg/mL injection solution RxNorm: 382300 1Milliliter 12/12/2017 No longer Active cyanocobalamin (vit B-12) 1,000 mcg/mL injection solution RxNorm: 569929 Milliliter 12/01/2017 No longer Active cyanocobalamin (vit B-12) 1,000 mcg/mL injection solution RxNorm: 608328 1Milliliter 11/17/2017 No longer Active cyanocobalamin (vit B-12) 1,000 mcg/mL injection solution RxNorm: 034322 1Milliliter 11/02/2017 No longer Active cyanocobalamin (vit B-12) 1,000 mcg/mL injection solution RxNorm: 495343 1Milliliter 10/20/2017 No longer Active cyanocobalamin (vit B-12) 1,000 mcg/mL injection solution RxNorm: 003439 Milliliter 10/06/2017 No longer Active cyanocobalamin (vit B-12) 1,000 mcg/mL injection solution RxNorm: 176344 Milliliter 09/21/2017 No longer Active Kenalog 40 mg/mL suspension for injection RxNorm: 6167704 Milliliter 09/15/2017 No longer Active cyanocobalamin (vit B-12) 1,000 mcg/mL injection solution RxNorm: 209166 Milliliter 09/07/2017 No longer Active cyanocobalamin (vit B-12) 1,000 mcg/mL injection solution RxNorm: 994001 Milliliter 08/24/2017 No longer Active cyanocobalamin (vit B-12) 1,000 mcg/mL injection solution RxNorm: 937081 Milliliter 07/06/2017 No longer Active cyanocobalamin (vit B-12) 1,000 mcg/mL injection solution RxNorm: 590923 Milliliter 06/20/2017 No longer Active Kenalog 40 mg/mL suspension for injection RxNorm: 7227528 1Milliliter 06/20/2017 No longer Active cyanocobalamin (vit B-12) 1,000 mcg/mL injection solution RxNorm: 088271 Milliliter 06/05/2017 No longer Active cyanocobalamin (vit B-12) 1,000 mcg/mL injection solution RxNorm: 776788 Milliliter 05/25/2017 No longer Active cyanocobalamin (vit B-12) 1,000 mcg/mL injection solution RxNorm: 662718 Milliliter 05/16/2017 No longer Active cyanocobalamin (vit B-12) 1,000 mcg/mL injection solution RxNorm: 594997 1Milliliter 05/01/2017 No longer Active cyanocobalamin (vit B-12) 1,000 mcg/mL injection solution RxNorm: 171643 Milliliter 04/18/2017 No longer Active cyanocobalamin (vit B-12) 1,000 mcg/mL injection solution RxNorm: 364951 Milliliter 04/06/2017 No longer Active cyanocobalamin (vit B-12) 1,000 mcg/mL injection solution RxNorm: 388666 Milliliter 03/22/2017 No longer Active cyanocobalamin (vit B-12) 1,000 mcg/mL injection solution RxNorm: 979036 Milliliter 03/09/2017 No longer Active cyanocobalamin (vit B-12) 1,000 mcg/mL injection solution RxNorm: 234511 Milliliter 02/23/2017 No longer Active cyanocobalamin (vit B-12) 1,000 mcg/mL injection solution RxNorm: 608728 Milliliter 02/09/2017 No longer Active cyanocobalamin (vit B-12) 1,000 mcg/mL injection solution RxNorm: 532620 Milliliter 01/23/2017 No longer Active cyanocobalamin (vit B-12) 1,000 mcg/mL injection solution RxNorm: 652878 Milliliter 01/10/2017 No longer Active cyanocobalamin (vit B-12) 1,000 mcg/mL injection solution RxNorm: 610052 1Milliliter 12/28/2016 No longer Active cyanocobalamin (vit B-12) 1,000 mcg/mL injection solution RxNorm: 289296 Milliliter 12/14/2016 No longer Active cyanocobalamin (vit B-12) 1,000 mcg/mL injection solution RxNorm: 236829 Milliliter 11/24/2016 No longer Active cyanocobalamin (vit B-12) 1,000 mcg/mL injection solution RxNorm: 085439 1Milliliter 11/07/2016 No longer Active cyanocobalamin (vit B-12) 1,000 mcg/mL injection solution RxNorm: 600038 Milliliter 10/24/2016 No longer Active cyanocobalamin (vit B-12) 1,000 mcg/mL injection solution RxNorm: 933582 1Milliliter 09/29/2016 No longer Active cyanocobalamin (vit B-12) 1,000 mcg/mL injection solution RxNorm: 023944 Milliliter 08/29/2016 No longer Active cyanocobalamin (vit B-12) 1,000 mcg/mL injection solution RxNorm: 124962 Milliliter 08/04/2016 No longer Active cyanocobalamin (vit B-12) 1,000 mcg/mL injection solution RxNorm: 360411 Milliliter 07/21/2016 No longer Active cyanocobalamin (vit B-12) 1,000 mcg/mL injection solution RxNorm: 694168 1Milliliter 07/05/2016 No longer Active cyanocobalamin (vit B-12) 1,000 mcg/mL injection solution RxNorm: 516945 1Milliliter 06/22/2016 No longer Active cyanocobalamin (vit B-12) 1,000 mcg/mL injection solution RxNorm: 906810 Milliliter 06/09/2016 No longer Active cyanocobalamin (vit B-12) 1,000 mcg/mL injection solution RxNorm: 348250 1Milliliter 05/25/2016 No longer Active cyanocobalamin (vit B-12) 1,000 mcg/mL injection solution RxNorm: 879979 Milliliter 05/10/2016 No longer Active cyanocobalamin (vit B-12) 1,000 mcg/mL injection solution RxNorm: 077832 Milliliter 04/26/2016 No longer Active cyanocobalamin (vit B-12) 1,000 mcg/mL injection solution RxNorm: 052440 Milliliter 04/11/2016 No longer Active cyanocobalamin (vit B-12) 1,000 mcg/mL injection solution RxNorm: 997990 Milliliter 03/31/2016 No longer Active cyanocobalamin (vit B-12) 1,000 mcg/mL injection solution RxNorm: 015553 1Milliliter 03/15/2016 No longer Active cyanocobalamin (vit B-12) 1,000 mcg/mL injection solution RxNorm: 535895 Milliliter 02/25/2016 No longer Active cyanocobalamin (vit B-12) 1,000 mcg/mL injection solution RxNorm: 930422 1Milliliter 02/02/2016 No longer Active cyanocobalamin (vit B-12) 1,000 mcg/mL injection solution RxNorm: 672924 Milliliter 01/18/2016 No longer Active cyanocobalamin (vit B-12) 1,000 mcg/mL injection solution RxNorm: 718259 Milliliter 12/29/2015 No longer Active cyanocobalamin (vit B-12) 1,000 mcg/mL injection solution RxNorm: 062133 Milliliter 12/08/2015 No longer Active cyanocobalamin (vit B-12) 1,000 mcg/mL injection solution RxNorm: 113941 Milliliter 11/23/2015 No longer Active cyanocobalamin (vit B-12) 1,000 mcg/mL injection solution RxNorm: 844046 Milliliter 11/11/2015 No longer Active cyanocobalamin (vit B-12) 1,000 mcg/mL injection solution RxNorm: 429010 1Milliliter 10/29/2015 No longer Active cyanocobalamin (vit B-12) 1,000 mcg/mL injection solution RxNorm: 609409 1Milliliter 10/12/2015 No longer Active cyanocobalamin (vit B-12) 1,000 mcg/mL injection solution RxNorm: 206305 1Milliliter 09/29/2015 No longer Active cyanocobalamin (vit B-12) 1,000 mcg/mL injection solution RxNorm: 499371 1Milliliter 09/17/2015 No longer Active cyanocobalamin (vit B-12) 1,000 mcg/mL injection solution RxNorm: 455184 1Milliliter 09/03/2015 No longer Active cyanocobalamin (vit B-12) 1,000 mcg/mL injection solution RxNorm: 033104 Milliliter 08/17/2015 No longer Active cyanocobalamin (vit B-12) 1,000 mcg/mL injection solution RxNorm: 369356 Milliliter 08/06/2015 No longer Active cyanocobalamin (vit B-12) 1,000 mcg/mL injection solution RxNorm: 250945 Milliliter 07/22/2015 No longer Active cyanocobalamin (vit B-12) 1,000 mcg/mL injection solution RxNorm: 001532 Milliliter 07/08/2015 No longer Active cyanocobalamin (vit B-12) 1,000 mcg/mL injection solution RxNorm: 093511 Milliliter 06/23/2015 No longer Active cyanocobalamin (vit B-12) 1,000 mcg/mL injection solution RxNorm: 857940 1Milliliter 06/08/2015 No longer Active cyanocobalamin (vit B-12) 1,000 mcg/mL injection solution RxNorm: 499149 Milliliter 05/27/2015 No longer Active cyanocobalamin (vit B-12) 1,000 mcg/mL injection solution RxNorm: 507046 1Milliliter 05/12/2015 No longer Active cyanocobalamin (vit B-12) 1,000 mcg/mL injection kit RxNorm: 948055 kit 04/30/2015 No longer Active cyanocobalamin (vit B-12) 1,000 mcg/mL injection solution RxNorm: 250552 Milliliter 04/16/2015 No longer Active cyanocobalamin (vit B-12) 1,000 mcg/mL injection solution RxNorm: 047401 Milliliter 04/02/2015 No longer Active cyanocobalamin (vit B-12) 1,000 mcg/mL injection solution RxNorm: 842088 Milliliter 03/18/2015 No longer Active cyanocobalamin (vit B-12) 1,000 mcg/mL injection solution RxNorm: 293879 Milliliter 03/03/2015 No longer Active cyanocobalamin (vit B-12) 1,000 mcg/mL injection solution RxNorm: 850257 Milliliter 02/18/2015 No longer Active cyanocobalamin (vit B-12) 1,000 mcg/mL injection solution RxNorm: 151350 Milliliter 02/04/2015 No longer Active cyanocobalamin (vit B-12) 1,000 mcg/mL injection solution RxNorm: 040956 Milliliter 01/22/2015 No longer Active cyanocobalamin (vit B-12) 1,000 mcg/mL injection solution RxNorm: 502010 Milliliter 01/08/2015 No longer Active cyanocobalamin (vit B-12) 1,000 mcg/mL injection solution RxNorm: 451073 Milliliter 12/25/2014 No longer Active cyanocobalamin (vit B-12) 1,000 mcg/mL injection solution RxNorm: 972927 Milliliter 12/10/2014 No longer Active cyanocobalamin (vit B-12) 1,000 mcg/mL injection solution RxNorm: 298263 Milliliter 11/26/2014 No longer Active cyanocobalamin (vit B-12) 1,000 mcg/mL injection kit RxNorm: 563189 Milliliter 11/12/2014 No longer Active cyanocobalamin (vit B-12) 1,000 mcg/mL injection solution RxNorm: 692033 Milliliter 10/28/2014 No longer Active Immunizations Vaccine Codes Date Status Influenza CVX: 141 03/16/2018 completed Influenza CVX: 141 03/22/2017 completed Pneumococcal (Adult) CVX: 33 05/25/2016 completed Influenza CVX: 141 03/15/2016 completed Assessments Condition Codes Effective Dates 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 ICD-9: 266.2 04/26/2018 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 ICD-9: 281.0 04/12/2018 Encounter for immunization ICD-10: Z23 ICD-9: V03.82 [...] Visit Reason For Visit Effective Dates Notes shoulder pain 02/26/2018 cough 12/12/2017 shortness of [...] (3rd IS) 3.20 uIU/mL 02/26/2018 Free T4 Bxl911 FREE T4 0.99 ng/dL 02/26/2018 Cbc With [...] 90.1 fl 02/26/2018 Cbc With Differential Ord2 George% 10.3 % 02/26/2018 Cbc With Differential Ord2 MCH 28.5 pg 02/26/2018 Cbc With Differential Ord2 MCHC 31.6 pg 02/26/2018 Cbc With Differential Ord2 Eos% 3.3 % 02/26/2018 Cbc With Differential Ord2 Baso% 0.6 % 02/26/2018 Cbc With Differential Ord2 PLT 239 K/ul 02/26/2018 Cbc With Differential Ord2 RDW 14.7 % 02/26/2018 Cbc With Differential Ord2 Neut ABS# 3.68 K/ul 02/26/2018 Cbc With Differential Ord2 Lymph ABS# 1.80 K/ul 02/26/2018 Cbc With Differential Ord2 George ABS# 0.7 K/ul 02/26/2018 Cbc With Differential Ord2 Eos ABS# 0.2 K/ul 02/26/2018 Cbc With Differential Ord2 Baso ABS# 0.0 K/ul 02/26/2018 B12 Tzw348 B12 889.00 pg/ml 02/26/2018 Digoxin Ord9 DIGOXIN 0.7 NG/ML 11/23/2017 Comp Metabolic Mxj422 NA 142 mEq/L 11/23/2017 Comp Metabolic Usu563 K 4.9 mEq/L 11/23/2017 Comp Metabolic Xbq504 CL 112 mEq/L 11/23/2017 Comp Metabolic Opv411 CO2 18.0 mEq/L 11/23/2017 Comp Metabolic Osy914 ANION GAP 17 11/23/2017 Comp Metabolic Foo084 GLUCOSE 123 mg/dL 11/23/2017 Comp Metabolic Wel687 Creat 1.0 mg/dL 11/23/2017 Comp Metabolic Wgx192 eGFR 59 ml/min/1.73m2 11/23/2017 Comp Metabolic Bvg571 BUN 24 mg/dL 11/23/2017 Comp Metabolic Uvl852 B/C Ratio 25.0 Ratio 11/23/2017 Comp Metabolic Ejx034 CALCIUM 9.4 mg/dL 11/23/2017 Comp Metabolic Oxo894 ALK PHOS 56 U/L 11/23/2017 Comp Metabolic Kez981 AST(SGOT) 17 U/L 11/23/2017 Comp Metabolic Vao976 ALT(SGPT) 16 U/L 11/23/2017 Comp Metabolic Zfm005 BILI T 0.7 mg/dL 11/23/2017 Comp Metabolic Nal786 ALBUMIN 3.8 g/dL 11/23/2017 Comp Metabolic Gmw985 TPRO 6.2 g/dL 11/23/2017 Comp Metabolic Ybn304 GLOB 2.4 g/dL 11/23/2017 Comp Metabolic Vom455 A/G Ratio 1.6 Ratio 11/23/2017 Comp Metabolic Xqm784 Osmo 289 mOsmo 11/23/2017 Free T4 Bug366 FREE T4 1.04 ng/dL 11/23/2017 %Hba1C Kjq211 % HbA1c 94251- 6 6.4 % 11/23/2017 %Hba1C Shz592 Gluc Ave 137 mg/dL 11/23/2017 Lipid Ord30 CHOL 179 mg/dL 11/23/2017 Lipid Ord30 HDL 51.0 mg/dl 11/23/2017 Lipid Ord30 TRIG 134 mg/dL 11/23/2017 Lipid Ord30 LDL 101 mg/dL 11/23/2017 Lipid Ord30 C/HDL 3.5 Ratio 11/23/2017 Tsh Ord6 TSH (3rd IS) 1.00 uIU/mL 11/23/2017 Microalbumin Oqn446 MicroAlb <0.7 mg/dL 11/23/2017 Comp Metabolic Wyc176 NA 141 mEq/L 01/23/2017 Comp Metabolic Bvg312 K 4.5 mEq/L 01/23/2017 Comp Metabolic Pxf325 CL 107 mEq/L 01/23/2017 Comp Metabolic Cef042 CO2 21.0 mEq/L 01/23/2017 Comp Metabolic Kuc536 ANION GAP 18 01/23/2017 Comp Metabolic Mil846 GLUCOSE 138 mg/dL 01/23/2017 Comp Metabolic Uvu751 Creat 1.0 mg/dL 01/23/2017 Comp Metabolic Nys472 eGFR 56 ml/min/1.73m2 01/23/2017 Comp Metabolic Eww731 BUN 26 mg/dL 01/23/2017 Comp Metabolic Ktb600 B/C Ratio 25.7 Ratio 01/23/2017 Comp Metabolic Syg973 CALCIUM 9.0 mg/dL 01/23/2017 Comp Metabolic Cri223 ALK PHOS 37 U/L 01/23/2017 Comp Metabolic Fsp346 AST(SGOT) 20 U/L 01/23/2017 Comp Metabolic Woy339 ALT(SGPT) 25 U/L 01/23/2017 Comp Metabolic Tww337 BILI T 0.9 mg/dL 01/23/2017 Comp Metabolic Bxy183 ALBUMIN 3.8 g/dL 01/23/2017 Comp Metabolic Fme912 TPRO 6.5 g/dL 01/23/2017 Comp Metabolic Pjj897 GLOB 2.7 g/dL 01/23/2017 Comp Metabolic Gto999 A/G Ratio 1.4 Ratio 01/23/2017 Comp Metabolic Bgf993 Osmo 288 mOsmo 01/23/2017 Free T4 Cdb148 FREE T4 1.05 ng/dL 01/23/2017 %Hba1C Wic874 % HbA1c 63148- 6 6.1 % 01/23/2017 %Hba1C Gyg955 Gluc Ave 128 mg/dL 01/23/2017 Tsh Ord6 hTSH II 1.68 uIU/mL 01/23/2017 Culture Urine [id number] URINE CULTURE SEE NOTES 11/10/2016 Culture Urine [id number] Continued Results 11/10/2016 Urine Culture Ucult Complete [...] Ord15 CALCIUM 9.3 mg/dL 09/29/2016 Free T4 Tev334 FREE T4 0.99 ng/dL 09/07/2016 Cbc With [...] 91.7 fl 09/07/2016 Cbc With Differential Ord2 George% 9.8 % 09/07/2016 Cbc With Differential Ord2 [...] 1.75 K/ul 09/07/2016 Cbc With Differential Ord2 George ABS# 0.6 K/ul 09/07/2016 Cbc With Differential Ord2 Eos ABS# 0.1 K/ul 09/07/2016 Cbc With Differential Ord2 Baso ABS# 0.0 K/ul 09/07/2016 Tsh Ord6 hTSH II 1.41 uIU/mL 09/07/2016 Culture Urine [id number] URINE CULTURE SEE NOTES 06/27/2016 Lipid Ord30 CHOL 196 mg/dL 06/22/2016 Lipid Ord30 HDL 63.0 mg/dl 06/22/2016 Lipid Ord30 TRIG 154 mg/dL 06/22/2016 Lipid Ord30 LDL 102 mg/dL 06/22/2016 Lipid Ord30 C/HDL 3.1 Ratio 06/22/2016 Hepatic Tlu309 ALBUMIN 4.2 g/dL 06/22/2016 Hepatic Fgv596 TPRO 7.0 g/dL 06/22/2016 Hepatic Ftm955 GLOB 2.8 g/dL 06/22/2016 Hepatic Cdb647 A/G Ratio 1.5 Ratio 06/22/2016 Hepatic Omh557 ALK PHOS 54 U/L 06/22/2016 Hepatic Lpj871 ALT(SGPT) 30 U/L 06/22/2016 Hepatic Pjh536 AST(SGOT) 24 U/L 06/22/2016 Hepatic Dyy618 BILI T 1.1 mg/dL 06/22/2016 Hepatic Yya355 BILI D 0.2 mg/dL 06/22/2016 Hepatic Zas417 BILI I 0.9 mg/dL 06/22/2016 Comp Metabolic Pfw913 NA 139 mEq/L 06/14/2016 Comp Metabolic Lpz098 K 4.6 mEq/L 06/14/2016 Comp Metabolic Adv074 CL 108 mEq/L 06/14/2016 Comp Metabolic Ypt977 CO2 22.0 mEq/L 06/14/2016 Comp Metabolic Ymt523 ANION GAP 14 06/14/2016 Comp Metabolic Kzz915 GLUCOSE 114 mg/dL 06/14/2016 Comp Metabolic Xga402 Creat 1.2 mg/dL 06/14/2016 Comp Metabolic Jdj154 eGFR 48 ml/min/1.73m2 06/14/2016 Comp Metabolic Rqt512 BUN 24 mg/dL 06/14/2016 Comp Metabolic Uee167 B/C Ratio 20.9 Ratio 06/14/2016 Comp Metabolic Kot698 CALCIUM 9.9 mg/dL 06/14/2016 Comp Metabolic Tev953 ALK PHOS 47 U/L 06/14/2016 Comp Metabolic Ony820 AST(SGOT) 28 U/L 06/14/2016 Comp Metabolic Gzc922 ALT(SGPT) 32 U/L 06/14/2016 Comp Metabolic Vza642 BILI T 0.9 mg/dL 06/14/2016 Comp Metabolic Oto366 ALBUMIN 4.1 g/dL 06/14/2016 Comp Metabolic Nys693 TPRO 6.9 g/dL 06/14/2016 Comp Metabolic Zyp248 GLOB 2.8 g/dL 06/14/2016 Comp Metabolic Zhi967 A/G Ratio 1.5 Ratio 06/14/2016 Comp Metabolic Noz389 Osmo 282 mOsmo 06/14/2016 Tsh Ord6 hTSH II 1.26 uIU/mL 06/14/2016 Free T4 Bnw052 FREE T4 1.09 ng/dL 06/14/2016 Tsh Ord6 hTSH II 0.28 uIU/mL 02/02/2016 Digoxin Ord9 DIGOXIN 0.7 NG/ML 02/02/2016 Free T4 Zyn304 FREE T4 1.23 ng/dL 02/02/2016 Hepatic Dkq061 ALBUMIN 4.0 g/dL 02/02/2016 Hepatic Pju353 TPRO 7.0 g/dL 02/02/2016 Hepatic Rbm218 GLOB 3.0 g/dL 02/02/2016 Hepatic Gih150 A/G Ratio 1.3 Ratio 02/02/2016 Hepatic Zto215 ALK PHOS 57 U/L 02/02/2016 Hepatic Cdg000 ALT(SGPT) 62 U/L 02/02/2016 Hepatic Klc171 AST(SGOT) 54 U/L 02/02/2016 Hepatic Bey894 BILI T 0.8 mg/dL 02/02/2016 Hepatic Wvc624 BILI D 0.2 mg/dL 02/02/2016 Hepatic Nmk035 BILI I 0.6 mg/dL 02/02/2016 Urine Culture Ucult Preliminary No Growth Day 1 11/25/2015 Urine Culture Ucult Complete No Growth Day 2 11/25/2015 Hepatic Cxn289 ALBUMIN 3.9 g/dL 11/11/2015 Hepatic Dgf490 TPRO 7.0 g/dL 11/11/2015 Hepatic Iwa198 GLOB 3.1 g/dL 11/11/2015 Hepatic Bsb926 A/G Ratio 1.3 Ratio 11/11/2015 Hepatic Tfb119 ALK PHOS 63 U/L 11/11/2015 Hepatic Qah977 ALT(SGPT) 107 U/L 11/11/2015 Hepatic Hyk384 AST(SGOT) 101 U/L 11/11/2015 Hepatic Cti119 BILI T 0.6 mg/dL 11/11/2015 Hepatic Voo110 BILI D 0.1 mg/dL 11/11/2015 Hepatic Mbk232 BILI I 0.5 mg/dL 11/11/2015 Comp Metabolic Oft518 NA 138 mEq/L 10/29/2015 Comp Metabolic Kms041 K 5.0 mEq/L 10/29/2015 Comp Metabolic Wyj974 CL 105 mEq/L 10/29/2015 Comp Metabolic Qvw422 CO2 23.0 mEq/L 10/29/2015 Comp Metabolic Kwb713 ANION GAP 15 10/29/2015 Comp Metabolic Iyq736 GLUCOSE 105 mg/dL 10/29/2015 Comp Metabolic Xwm207 Creat 1.0 mg/dL 10/29/2015 Comp Metabolic Khe596 eGFR 55 ml/min/1.73m2 10/29/2015 Comp Metabolic Rkd937 BUN 20 mg/dL 10/29/2015 Comp Metabolic Lnn863 B/C Ratio 19.4 Ratio 10/29/2015 Comp Metabolic Zlb701 CALCIUM 8.8 mg/dL 10/29/2015 Comp Metabolic Sgy792 ALK PHOS 56 U/L 10/29/2015 Comp Metabolic Bwc505 AST(SGOT) 66 U/L 10/29/2015 Comp Metabolic Bji530 ALT(SGPT) 78 U/L 10/29/2015 Comp Metabolic Qzu630 BILI T 0.7 mg/dL 10/29/2015 Comp Metabolic Qxc562 ALBUMIN 3.6 g/dL 10/29/2015 Comp Metabolic Osh128 TPRO 6.6 g/dL 10/29/2015 Comp Metabolic Ppg387 GLOB 3.0 g/dL 10/29/2015 Comp Metabolic Dbq000 A/G Ratio 1.2 Ratio 10/29/2015 Comp Metabolic Fly919 Osmo 279 mOsmo 10/29/2015 Comp Metabolic Eil231 NA 136 mEq/L 09/03/2015 Comp Metabolic Rxv989 K 4.4 mEq/L 09/03/2015 Comp Metabolic Hxj833 CL 103 mEq/L 09/03/2015 Comp Metabolic Mdp233 CO2 24.0 mEq/L 09/03/2015 Comp Metabolic Bad815 ANION GAP 13 09/03/2015 Comp Metabolic Ysy568 GLUCOSE 87 mg/dL 09/03/2015 Comp Metabolic Zor496 Creat 1.1 mg/dL 09/03/2015 Comp Metabolic Uyi331 eGFR 53 ml/min/1.73m2 09/03/2015 Comp Metabolic Sxn116 BUN 17 mg/dL 09/03/2015 Comp Metabolic Uiz703 B/C Ratio 16.2 Ratio 09/03/2015 Comp Metabolic Glo001 CALCIUM 9.0 mg/dL 09/03/2015 Comp Metabolic Kum904 ALK PHOS 55 U/L 09/03/2015 Comp Metabolic Nlv525 AST(SGOT) 83 U/L 09/03/2015 Comp Metabolic Xcj655 ALT(SGPT) 126 U/L 09/03/2015 Comp Metabolic Jhf187 BILI T 0.9 mg/dL 09/03/2015 Comp Metabolic Sbp386 ALBUMIN 3.9 g/dL 09/03/2015 Comp Metabolic Rtw568 TPRO 6.8 g/dL 09/03/2015 Comp Metabolic Nyc699 GLOB 2.9 g/dL 09/03/2015 Comp Metabolic Kuy842 A/G Ratio 1.4 Ratio 09/03/2015 Comp Metabolic Mmf473 Osmo 273 mOsmo 09/03/2015 Total T3 Ord42 TT3 0.6 ng/ml 07/09/2015 Tsh Ord6 hTSH II 1.62 uIU/mL 07/09/2015 Total T3 Ord42 TT3 0.5 ng/ml 04/02/2015 Free T4 Vqr630 FREE T4 1.23 ng/dL 04/02/2015 Tsh Ord6 hTSH II 5.95 uIU/mL 04/02/2015 Review of Systems System Result Effective Dates Constitutional No recent illness 02/26/2018 Constitutional No [...] normal 02/26/2018 None Full Exam - General 1995 Ears/Nose/Throat lips/teeth/gingiva Overall: benign lips 02/26/2018 None [...] Procedure Codes Date THER/PROPH/DIAG INJ SC/IM CPT-4: 79215 04/26/2018 VITAMIN B12 INJECTION CPT- 4: J3420 04/26/2018 THER/PROPH/DIAG INJ SC/IM CPT-4: 97296 04/12/2018 THER/PROPH/DIAG INJ SC/IM CPT-4: 72592 03/30/2018 THER/PROPH/DIAG INJ SC/IM CPT-4: 44972 03/16/2018 VITAMIN B12 INJECTION CPT- 4: J3420 03/16/2018 ADMIN INFLUENZA VIRUS VAC CPT-4: G0008 03/16/2018 FLU VACC PRSV FREE INC ANTIG Formatting Model/CDA Sections, Assigned to/Nga Ojeda CPT-4: [id number] 03/16/2018 THER/PROPH/DIAG INJ SC/IM CPT-4: 45401 03/02/2018 THER/PROPH/DIAG INJ SC/IM CPT-4: 03954 02/08/2018 THER/PROPH/DIAG INJ SC/IM CPT-4: 60602 01/24/2018 THER/PROPH/DIAG INJ SC/IM CPT-4: 50489 01/10/2018 THER/PROPH/DIAG INJ SC/IM CPT-4: 50063 12/27/2017 VITAMIN B12 INJECTION CPT- 4: J3420 12/27/2017 THER/PROPH/DIAG INJ SC/IM CPT-4: 88182 12/12/2017 THER/PROPH/DIAG INJ SC/IM CPT-4: 26209 12/01/2017 VITAMIN B12 INJECTION CPT- 4: J3420 12/01/2017 THER/PROPH/DIAG INJ SC/IM CPT-4: 13170 11/17/2017 THER/PROPH/DIAG INJ SC/IM CPT-4: 98544 11/02/2017 THER/PROPH/DIAG INJ SC/IM CPT-4: 67161 10/20/2017 THER/PROPH/DIAG INJ SC/IM CPT-4: 72722 10/06/2017 THER/PROPH/DIAG INJ SC/IM CPT-4: 86128 09/21/2017 TRIAMCINOLONE ACET INJ NOS CPT-4: J3301 09/15/2017 THER/PROPH/DIAG INJ SC/IM CPT-4: 66100 09/07/2017 THER/PROPH/DIAG INJ SC/IM CPT-4: 92187 08/24/2017 THER/PROPH/DIAG INJ SC/IM CPT-4: 46368 07/06/2017 THER/PROPH/DIAG INJ SC/IM CPT-4: 26798 06/20/2017 TRIAMCINOLONE ACET INJ NOS CPT-4: J3301 06/20/2017 PPPS, SUBSEQ VISIT CPT- 4: G0439 06/05/2017 THER/PROPH/DIAG INJ SC/IM CPT-4: 02818 06/05/2017 THER/PROPH/DIAG INJ SC/IM CPT-4: 21618 05/25/2017 VITAMIN B12 INJECTION CPT- 4: J3420 05/25/2017 THER/PROPH/DIAG INJ SC/IM CPT-4: 76431 05/16/2017 THER/PROPH/DIAG INJ SC/IM CPT-4: 88203 05/01/2017 THER/PROPH/DIAG INJ SC/IM CPT-4: 83444 04/18/2017 THER/PROPH/DIAG INJ SC/IM CPT-4: 69347 04/06/2017 ADMIN INFLUENZA VIRUS VAC CPT-4: G0008 03/22/2017 FLU VACC PRSV FREE INC ANTIG CPT-4: 63775 03/22/2017 THER/PROPH/DIAG INJ SC/IM CPT-4: 95688 03/09/2017 THER/PROPH/DIAG INJ SC/IM CPT-4: 68090 02/23/2017 THER/PROPH/DIAG INJ SC/IM CPT-4: 26094 02/09/2017 THER/PROPH/DIAG INJ SC/IM CPT-4: 43193 01/23/2017 THER/PROPH/DIAG INJ SC/IM CPT-4: 03135 01/10/2017 THER/PROPH/DIAG INJ SC/IM CPT-4: 93177 12/28/2016 THER/PROPH/DIAG INJ SC/IM CPT-4: 73764 12/14/2016 THER/PROPH/DIAG INJ SC/IM CPT-4: 80321 11/24/2016 URINALYSIS NONAUTO W/O SCOPE CPT-4: 69353 11/07/2016 THER/PROPH/DIAG INJ SC/IM CPT-4: 34032 11/07/2016 THER/PROPH/DIAG INJ SC/IM CPT-4: 21541 10/24/2016 THER/PROPH/DIAG INJ SC/IM CPT-4: 92861 09/29/2016 THER/PROPH/DIAG INJ SC/IM CPT-4: 71620 08/29/2016 THER/PROPH/DIAG INJ SC/IM CPT-4: 91340 08/04/2016 THER/PROPH/DIAG INJ SC/IM CPT-4: 27512 07/21/2016 THER/PROPH/DIAG INJ SC/IM CPT-4: 44249 07/05/2016 THER/PROPH/DIAG INJ SC/IM CPT-4: 00397 06/22/2016 URINALYSIS NONAUTO W/O SCOPE CPT-4: 15258 06/22/2016 THER/PROPH/DIAG INJ SC/IM CPT-4: 17739 06/09/2016 PPPS, SUBSEQ VISIT CPT- 4: G0439 05/30/2016 ADMIN PNEUMOCOCCAL VACCINE SNOMED CT: 29907723 CPT-4: G0009 05/25/2016 Pneumococcal Polysaccharide Vaccine, 23-Valent, Ad CPT-4: 48744 05/25/2016 THER/PROPH/DIAG INJ SC/IM CPT-4: 55510 05/25/2016 THER/PROPH/DIAG INJ SC/IM CPT-4: 90971 05/10/2016 TRIAMCINOLONE ACET INJ NOS CPT-4: J3301 04/26/2016 VITAMIN B12 INJECTION CPT- 4: J3420 04/26/2016 THER/PROPH/DIAG INJ SC/IM CPT-4: 92800 04/11/2016 THER/PROPH/DIAG INJ SC/IM CPT-4: 38445 03/31/2016 ADMIN INFLUENZA VIRUS VAC CPT-4: G0008 03/15/2016 FLU VACC 4 STEPHANIE [address] YRS PLUS IM SNOMED CT: 43215709 CPT-4: 34419 03/15/2016 THER/PROPH/DIAG INJ SC/IM CPT-4: 22077 02/25/2016 THER/PROPH/DIAG INJ SC/IM CPT-4: 39190 02/02/2016 THER/PROPH/DIAG INJ SC/IM CPT-4: 75933 01/18/2016 VITAMIN B12 INJECTION CPT- 4: J3420 12/29/2015 THER/PROPH/DIAG INJ SC/IM CPT-4: 06025 12/29/2015 THER/PROPH/DIAG INJ SC/IM CPT-4: 14818 12/08/2015 THER/PROPH/DIAG INJ SC/IM CPT-4: 80195 11/23/2015 URINALYSIS NONAUTO W/O SCOPE CPT-4: 11589 11/23/2015 THER/PROPH/DIAG INJ SC/IM CPT-4: 35348 11/11/2015 THER/PROPH/DIAG INJ SC/IM CPT-4: 01162 10/29/2015 THER/PROPH/DIAG INJ SC/IM CPT-4: 90564 10/12/2015 VITAMIN B12 INJECTION CPT- 4: J3420 10/12/2015 THER/PROPH/DIAG INJ SC/IM CPT-4: 86151 09/29/2015 THER/PROPH/DIAG INJ SC/IM CPT-4: 94554 09/17/2015 THER/PROPH/DIAG INJ SC/IM CPT-4: 46312 09/03/2015 THER/PROPH/DIAG INJ SC/IM CPT-4: 45855 08/17/2015 THER/PROPH/DIAG INJ SC/IM CPT-4: 00987 08/06/2015 THER/PROPH/DIAG INJ SC/IM CPT-4: 51000 07/22/2015 THER/PROPH/DIAG INJ SC/IM CPT-4: 87622 07/08/2015 THER/PROPH/DIAG INJ SC/IM CPT-4: 95431 06/23/2015 THER/PROPH/DIAG INJ SC/IM CPT-4: 01129 06/08/2015 THER/PROPH/DIAG INJ SC/IM CPT-4: 45637 05/27/2015 DESTRUCT PREMALG LESION CPT-4: 06514 05/19/2015 DESTRUCT PREMALG LES 2-14 CPT-4: 16405 05/19/2015 THER/PROPH/DIAG INJ SC/IM CPT-4: 47910 05/12/2015 VITAMIN B12 INJECTION CPT- 4: J3420 05/12/2015 THER/PROPH/DIAG INJ SC/IM CPT-4: 50506 04/30/2015 VITAMIN B12 INJECTION CPT- 4: J3420 04/30/2015 THER/PROPH/DIAG INJ SC/IM CPT-4: 35498 04/16/2015 THER/PROPH/DIAG INJ SC/IM CPT-4: 49017 04/02/2015 VITAMIN B12 INJECTION CPT- 4: J3420 04/02/2015 THER/PROPH/DIAG INJ SC/IM CPT-4: 84996 03/18/2015 THER/PROPH/DIAG INJ SC/IM CPT-4: 94620 03/03/2015 THER/PROPH/DIAG INJ SC/IM CPT-4: 95039 02/18/2015 THER/PROPH/DIAG INJ SC/IM CPT-4: 24768 02/04/2015 VITAMIN B12 INJECTION CPT- 4: J3420 02/04/2015 THER/PROPH/DIAG INJ SC/IM CPT-4: 87348 01/22/2015 THER/PROPH/DIAG INJ SC/IM CPT-4: 03474 01/08/2015 VITAMIN B12 INJECTION CPT- 4: J3420 01/08/2015 THER/PROPH/DIAG INJ SC/IM CPT-4: 08662 12/25/2014 VITAMIN B12 INJECTION CPT- 4: J3420 12/25/2014 THER/PROPH/DIAG INJ SC/IM CPT-4: 54270 12/10/2014 VITAMIN B12 INJECTION CPT- 4: J3420 12/10/2014 THER/PROPH/DIAG INJ SC/IM CPT-4: 00858 11/26/2014 VITAMIN B12 INJECTION CPT- 4: J3420 11/26/2014 THER/PROPH/DIAG INJ SC/IM CPT-4: 68474 11/12/2014 VITAMIN B12 INJECTION CPT- 4: J3420 11/12/2014 THER/PROPH/DIAG INJ SC/IM CPT-4: 54385 10/28/2014 Vital Signs Date Vital 04/26/2018 Height: 5'6" 02/26/2018 Blood Pressure 1: 130/72 Code: 8480-6 BMI: 27.9 Code: 73630-7 Heart Rate 1: 72 bpm Height: 5'6" SpO2: 93% Weight: 173 lbs 12/12/2017 Blood Pressure 1: 126/74 Code: 8480-6 BMI: 27.4 Code: 46665-8 Heart Rate 1: 83 bpm Height: 5'6" SpO2: 98% Weight: 170 lbs 12/04/2017 Blood Pressure 1: 104/68 Code: 8480-6 BMI: 28.2 Code: 50697-1 Heart Rate 1: 85 bpm Height: 5'6" SpO2: 95% Weight: 175 lbs 11/20/2017 Blood Pressure 1: 130/68 Code: 8480-6 BMI: 28.4 Code: 88401-1 Heart Rate 1: 80 bpm Height: 5'6" SpO2: 99% Weight: 176 lbs 11/02/2017 Height: 5'6" 09/15/2017 Blood Pressure 1: 134/74 Code: 8480-6 BMI: 28.4 Code: 94818-3 Heart Rate 1: 88 bpm Height: 5'6" SpO2: 98% Weight: 176 lbs 09/07/2017 Blood Pressure 1: 124/64 Code: 8480-6 Heart Rate 1: 90 bpm Height: SpO2: 97% Weight: 08/30/2017 Blood Pressure 1: 140/76 Code: 8480-6 BMI: 28.4 Code: 65097-3 Heart Rate 1: 90 bpm Height: 5'6" SpO2: 94% Weight: 176 lbs 07/06/2017 Blood Pressure 1: 132/66 Code: 8480-6 BMI: 29.4 Code: 17296-0 Heart Rate 1: 85 bpm Height: 5'6" SpO2: 97% Weight: 182 lbs 06/20/2017 Blood Pressure 1: 134/86 Code: 8480-6 Heart Rate 1: 90 bpm Height: SpO2: 98% Weight: 06/05/2017 BMI: 29.1 Code: 78044-4 Height: 5'6" Weight: 180 lbs 05/25/2017 Blood Pressure 1: 126/76 Code: 8480-6 BMI: 29.1 Code: 77174-0 Heart Rate 1: 77 bpm Height: 5'6" SpO2: 97% Weight: 180 lbs 03/23/2017 Blood Pressure 1: 142/84 Code: 8480-6 BMI: 29.1 Code: 45725-0 Heart Rate 1: 91 bpm Height: 5'6" SpO2: 97% Weight: 180 lbs 01/23/2017 Blood Pressure 1: 150/90 Code: 8480-6 BMI: 29.9 Code: 20641-8 Heart Rate 1: 81 bpm Height: 5'6" SpO2: 97% Weight: 185 lbs 11/02/2016 Blood Pressure 1: 148/78 Code: 8480-6 BMI: 29.7 Code: 90017-1 Heart Rate 1: 87 bpm Height: 5'6" SpO2: 97% Weight: 184 lbs 09/29/2016 Blood Pressure 1: 128/78 Code: 8480-6 BMI: 29.7 Code: 03209-4 Heart Rate 1: 78 bpm Height: 5'6" SpO2: 98% Weight: 184 lbs 07/26/2016 Blood Pressure 1: 138/72 Code: 8480-6 BMI: 30.0 Code: 77783-2 Heart Rate 1: 85 bpm Height: 5'6" SpO2: 97% Weight: 186 lbs 05/30/2016 Blood Pressure 1: 132/76 Code: 8480-6 BMI: 30.0 Code: 17040-7 Heart Rate 1: 80 bpm Height: 5'6" SpO2: 98% Waist Measure (cm): 99 cm Weight: 186 lbs 05/25/2016 Blood Pressure 1: 132/76 Code: 8480-6 BMI: 30.0 Code: 78125-5 Heart Rate 1: 80 bpm Height: 5'6" SpO2: 96% Weight: 186 lbs 02/25/2016 Blood Pressure 1: 110/64 Code: 8480-6 Heart Rate 1: 82 bpm Height: SpO2: 96% Weight: 01/25/2016 Blood Pressure 1: 118/70 Code: 8480-6 BMI: 30.0 Code: 36245-6 Heart Rate 1: 78 bpm Height: 5'6" SpO2: 97% Weight: 186 lbs 11/11/2015 Blood Pressure 1: 128/82 Code: 8480-6 BMI: 29.2 Code: 40735-0 Heart Rate 1: 86 bpm Height: 5'6" SpO2: 96% Temperature: 36.4 (C) / 97.6 (F) Weight: 181 lbs 10/12/2015 Blood Pressure 1: 118/70 Code: 8480-6 BMI: 29.2 Code: 71119-7 Heart Rate 1: 81 bpm Height: 5'6" SpO2: 95% Weight: 181 lbs 09/03/2015 Blood Pressure 1: 138/78 Code: 8480-6 BMI: 29.9 Code: 09980-6 Heart Rate 1: 88 bpm Height: 5'6" SpO2: 97% Weight: 185 lbs 05/19/2015 Blood Pressure 1: 146/78 Code: 8480-6 BMI: 30.0 Code: 51610-8 Heart Rate 1: 66 bpm Height: 5'6" SpO2: 97% Weight: 186 lbs 05/12/2015 Blood Pressure 1: 120/70 Code: 8480-6 BMI: 29.9 Code: 88352-1 Heart Rate 1: 89 bpm Height: 5'6" SpO2: 95% Weight: 185 lbs 01/13/2015 Blood Pressure 1: 140/90 Code: 8480-6 BMI: 30.3 Code: 66001-9 Heart Rate 1: 84 bpm Height: 5'6" SpO2: 95% Weight: 188 lbs 12/16/2014 Blood Pressure 1: 140/82 Code: 8480-6 BMI: 29.5 Code: 95437-2 Heart Rate 1: 86 bpm Height: 5'6" Weight: 183 lbs Functional Status No Functional Status data History of Present Illness Symptom Name Status Result Effective Date Notes shoulder pain Location on the right shoulder [...] data Encounters Encounter Performer Location Codes Date ([id number]) [id number] EST. PATIENT, LEVEL III Diagnosis: Pain in left shoulder[ICD10: M25.512] Diagnosis: Pain in right shoulder[ICD10: M25.511] Yarely Vega MD, [facility] CPT-4: 69621 02/26/2018 ([id number]) 29496 EST. PATIENT, LEVEL III Diagnosis: Nausea[ICD10: R11.0] Diagnosis: Cough[ICD10: R05] Diagnosis: 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 factor deficiency[ICD10: D51.0] Janet Vega MD, [facility] CPT-4: 98244 12/12/2017 ([id number]) 58879 EST. PATIENT, LEVEL IV Diagnosis: Acute bronchitis due to Hemophilus influenzae[ICD10: J20.1] Diagnosis: Cough[ICD10: R05] Yarely Vega MD, [facility] CPT-4: 24160 12/04/2017 ([id number]) 02214 EST. PATIENT, LEVEL IV Diagnosis: Essential (primary) hypertension[ICD10: I10] Diagnosis: Cough[ICD10: R05] Diagnosis: Chronic atrial fibrillation[ICD10: I48.2] Yarely Vega MD, [facility] CPT-4: 23408 11/20/2017 ([id number]) 17578 EST. PATIENT, LEVEL III Diagnosis: Cough[ICD10: R05] Diagnosis: Acute upper respiratory infection, unspecified[ICD10: J06.9] Janet Vega MD, [facility] CPT-4: 40520 09/15/2017 [id number] EST. PATIENT, LEVEL III Diagnosis: Laceration without foreign body of right forearm, initial encounter[ICD10: S51.811A] Diagnosis: Other vitamin B12 deficiency anemias[ICD10: D51.8] Brianna Vega MD, [facility] CPT-4: 52935 09/07/2017 ([id number]) 96055 EST. PATIENT, LEVEL IV Diagnosis: Chronic atrial fibrillation[ICD10: I48.2] Diagnosis: Other allergic rhinitis[ICD10: J30.89] Diagnosis: Encounter for therapeutic drug level monitoring[ICD10: Z51.81] Yarely Vega MD, [facility] CPT-4: 49178 08/30/2017 ([id number]) 97834 EST. PATIENT, LEVEL IV Diagnosis: Atrophy of thyroid (acquired)[ICD10: E03.4] Diagnosis: Cough[ICD10: R05] Diagnosis: Laceration without foreign body of left forearm, initial encounter[ICD10: S51.812A] Diagnosis: Candidiasis of skin and nail[ICD10: B37.2] Diagnosis: Other vitamin B12 deficiency anemias[ICD10: D51.8] Diagnosis: Slow transit constipation[ICD10: K59.01] Yarely Vega MD, [facility] CPT-4: 19336 07/06/2017 [id number] EST. PATIENT, LEVEL III Diagnosis: Other vitamin B12 deficiency anemias[ICD10: D51.8] Diagnosis: Acute laryngopharyngitis[ICD10: J06.0] Diagnosis: Other allergic rhinitis[ICD10: J30.89] Brianna Vega MD, [facility] CPT- 4: 64042 06/20/2017 ([id number]) 48212 EST. PATIENT, LEVEL IV Diagnosis: Essential (primary) hypertension[ICD10: I10] Diagnosis: Chronic atrial fibrillation[ICD10: I48.2] Diagnosis: Atrophy of thyroid (acquired)[ICD10: E03.4] Diagnosis: 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 factor deficiency[ICD10: D51.0] Yarely Vega MD, [facility] CPT-4: 05546 05/25/2017 ([id number]) 12676 EST. 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 PATIENT, LEVEL IV Diagnosis: Type 2 diabetes mellitus without complications[ICD10: E11.9] Diagnosis: Essential (primary) hypertension[ICD10: I10] Diagnosis: Headache[ICD10: R51] Diagnosis: Atrophy of thyroid (acquired)[ICD10: E03.4] Diagnosis: Vitamin B12 deficiency anemia, unspecified[ICD10: D51.9] Yarely Vega MD, [facility] CPT-4: 51160 01/23/2017 01046 EST. PATIENT, LEVEL III Diagnosis: Low back pain[ICD10: M54.5] Diagnosis: Pain in thoracic spine[ICD10: M54.6] Brianna Vega MD, [facility] CPT- 4: 84361 11/02/2016 ([id number]) 87766 EST. PATIENT, LEVEL IV Diagnosis: Essential (primary) hypertension[ICD10: I10] Diagnosis: Other vitamin B12 deficiency anemias[ICD10: D51.8] Diagnosis: Generalized abdominal pain[ICD10: R10.84] Yarely Vega MD, [facility] CPT-4: 27483 09/29/2016 ([id number]) 26539 EST. PATIENT, LEVEL IV Diagnosis: Essential (primary) hypertension[ICD10: I10] Yarely Vega MD, [facility] CPT-4: 40768 07/26/2016 ([id number]) 95597 EST. PATIENT, LEVEL IV Diagnosis: Benign lipomatous neoplasm of skin and subcutaneous tissue of right leg[ICD10: D17.23] Diagnosis: Pain in right ankle and joints of right foot[ICD10: M25.571] Diagnosis: Encounter for immunization[ICD10: Z23] Diagnosis: Vitamin B12 deficiency anemia, unspecified[ICD10: D51.9] Yarely Vega MD, [facility] CPT-4: 98262 05/25/2016 34148 EST. PATIENT, LEVEL III Diagnosis: Other chest pain[ICD10: R07.89] Diagnosis: Other vitamin B12 deficiency anemias[ICD10: D51.8] Brianna Vega MD, [facility] CPT-4: 64460 02/25/2016 ([id number]) 24154 EST. 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 PATIENT, LEVEL III Diagnosis: Other vitamin B12 deficiency anemias[ICD10: D51.8] Diagnosis: Acute nasopharyngitis [common cold][ICD10: J00] Diagnosis: Other allergic rhinitis[ICD10: J30.89] Brianna Vega MD, [facility] CPT- 4: 22322 11/11/2015 ([id number]) 33107 EST. PATIENT, LEVEL IV Diagnosis: Essential tremor[ICD10: G25.0] Diagnosis: Chronic fatigue, unspecified[ICD10: R53.82] Diagnosis: Other hypersomnia[ICD10: G47.19] Diagnosis: Essential (primary) hypertension[ICD10: I10] Yarely Vega MD, [facility] CPT-4: 41043 10/12/2015 ([id number]) 46135 EST. PATIENT, LEVEL IV Diagnosis: Essential (primary) hypertension[ICD10: I10] Diagnosis: Chronic atrial fibrillation[ICD10: I48.2] Diagnosis: Abnormal levels of other serum enzymes[ICD10: R74.8] Diagnosis: Type 2 diabetes mellitus without complications[ICD10: E11.9] Diagnosis: Vitamin B12 deficiency anemia, unspecified[ICD10: D51.9] Yarely Vega MD, [facility] CPT-4: 30956 09/03/2015 [id number] 49331 EST. PATIENT, LEVEL III Diagnosis: Nausea[ICD10: R11.0] Diagnosis: Essential tremor[ICD10: G25.0] Diagnosis: Actinic keratosis[ICD10: L57.0] Yarely Vega MD, [facility] CPT-4: 98362 05/19/2015 [id number]) 35032 EST. PATIENT, LEVEL IV Diagnosis: Vitamin B12 deficiency anemia, unspecified[ICD10: D51.9] Diagnosis: Chronic atrial fibrillation[ICD10: I48.2] Diagnosis: Headache[ICD10: R51] Diagnosis: Chronic fatigue, unspecified[ICD10: R53.82] Diagnosis: Cervicalgia[ICD10: M54.2] Yarely Vega MD, [facility] CPT-4: 12999 05/12/2015 [id number]) 26929 EST. PATIENT, LEVEL IV Diagnosis: ESSENTIAL HYPERTENSION[ICD9: 401.9] Diagnosis: Afib[ICD9: 427.31] Diagnosis: Anxiety[ICD9: 300.00] Diagnosis: Insomnia[ICD9: 780.52] Yarely Vega MD, [facility] CPT-4: 77686 01/13/2015 ([id number]) OFFICE VISIT, NEW - LEVEL 4 Diagnosis: Hypothyroidism[ICD9: 244.9] Diagnosis: DIABETES TYPE II[ICD9: 250.00] Diagnosis: ESSENTIAL HYPERTENSION[ICD9: 401.9] Diagnosis: Afib[ICD9: 427.31] Diagnosis: Anxiety[ICD9: 300.00] Diagnosis: B12 deficiency[ICD9: 266.2] Janet Vega MD, [facility] CPT-4: 43995 12/16/2014 Plan of Care Planned Activity Notes Codes Status Date Appointment: Injection 04/26/2018 Patient Education: Patient Medication [...] surgical intervention. 02/26/2018 Appointment: Yarely Vega WPtel: [facility] [place] (15 min) Moderate 02/26/2018 Patient Education: Patient Medication Summary Completed 02/26/2018 Care Plan: Referral Order SNOMED-CT : [id number] Pending 02/26/2018 Appointment: Injection 02/08/2018 Patient Education: Patient Medication Summary Completed 02/08/2018 Appointment: Injection 01/24/2018 Patient Education: Patient Medication Summary Completed 01/24/2018 Appointment: Injection 01/10/2018 Patient Education: Patient Medication Summary Completed 01/10/2018 Appointment: Injection 12/27/2017 Patient Education: Patient Medication Summary Completed 12/27/2017 Appointment: Yarely Vega WPtel: [facility] [place] (15 min) Moderate 12/26/2017 Visit Plan: Oshzko-pwjjmjcmt-fkuxxmwc protonix-follow up with Dr Navarro as scheduled Cough-recent bronchitis-symptoms improved-call if symptoms do not completely resolve 12/12/2017 Appointment: Janet Fam WPtel: [phone] [place] (15 min) Moderate 12/12/2017 Patient Education: Patient Medication Summary Completed 12/12/2017 Visit Plan: Bronchitis - acute case of bronchitis identified. Pt has been given antibiotics, breathing treatments as appropriate, and pt has been instructed to call if symptoms are not improved, or if symptoms acutely worsen. Cough - rx for antibiotics as well as cough medication. 12/04/2017 Appointment: Yarely Vega WPtel: [facility] [place]9 [facility] [place] (15 min) Moderate 12/04/2017 Patient Education: [...] Fatigue/malaise -Pt was advsied to ask the Marketing And Promotions Manager the following: ask the heart doctor [...] Appointment: Yarely Vega WPtel: [facility] [place]0 [facility] (15 min) Moderate 11/20/2017 Patient Education: [...] Appointment: Janet F[facility]Ptel[phone] [place] (15 min) Moderate 09/15/2017 Patient Education: Patient Medication Summary Completed 09/15/2017 Appointment: Yarely Vega WPtel: [facility] [place]8 [facility] [place] (15 min) Moderate 09/11/2017 Visit Plan: Skin tear and Cellulitis - The patient was instructed in appropriate wound care. The patient was instructed to use the antibiotic ointment as per RX. The patient is to call for any change in symptoms, increase in size of the lesion, increase in pain, worsening redness, warmth, discharge. 09/07/2017 Appointment: Bri[facility] Otoole [facility]el[phone] (10 min) Simple 09/07/2017 Patient Education: Patient Medication Summary Completed 09/07/2017 Visit Plan: Lipoma - left ankle - talk to dr. barnes about possible surgery/laser for treatment of lipoma. Fatigue/malaise -Pt was advsied to ask the Marketing And Promotions Manager the following: ask the heart doctor [...] Appointment: Yarely Vega WPtel: [facility]5 [facility] (15 min) Moderate 08/30/2017 Patient Education: Patient Medication Summary Completed 08/30/2017 Appointment: Injection 08/24/2017 Appointment: Yarely Vega WPtel: [facility]5 [facility] (15 min) Moderate 08/24/2017 Patient Education: Patient [...] spray. 06/20/2017 Appointment: [phone] (15 min) Moderate 06/20/2017 Patient Education: [...] Injection 06/05/2017 App[facility]ment: Bri[facility] Otoole [facility]el[phone] [facility] [facility] - Annual Wellness Visit 06/05/2017 [...] q 3 months or q [address] [facility] based on previous levels of [...] wall. Fatigue - pt to discuss with Marketing And Promotions Manager about the possibility of amiodarone causing her fatigue/malaise. 03/23/2017 App[facility]ment: [phone] [place] (15 min) Moderate [...] improve. 11/02/2016 Appointment: [phone] [place] (15 min) Moderate 11/02/2016 Patient [...] concerns. 07/26/2016 Appointment: Yarely Vega WPtel: [phone] [facility] (15 min) Moderate 07/26/2016 Patient Education: Patient [...] surrogate. 05/30/2016 Appointment: Brianna Otoole WPtel: [phone] [facility] [facility] - Annual Wellness Visit 05/30/2016 [...] bedtime 05/25/2016 Appointment: [facility]el[phone] (15 min) Moderate 05/25/2016 Patient Education: Patient Medication Summary Completed 05/25/2016 Patient Education: Obesity Completed 05/25/2016 Care Plan: Referral Order SNOMED-CT : [id number] Pending 05/25/2016 Appointment: Injection 05/10/2016 Patient Education: Patient Medication Summary Completed 05/10/2016 Appointment: Injection 04/26/2016 Patient Education: Patient Medication Summary Completed 04/26/2016 Appointment: Injection 04/11/2016 Patient Education: Patient Medication Summary Completed 04/11/2016 Appointment: Injection 03/31/2016 Patient Education: Patient Medication Summary Completed 03/31/2016 Patient Education: Patient Medication Summary Completed 03/22/2016 Care Plan: SCREENINGMAMMOGRAPHYDIGITAL [facility] : 92457-8 Pending 03/22/2016 Appointment: Injection 03/15/2016 Patient Education: [...] any concerns. 02/25/2016 [phone] [id number] ([facility] min) Moderate 02/25/2016 Patient Education: [...] the patients recent sleep study - recommended [place] home patient eval of pt - nocturnal [...] the patients recent sleep study - recommended [place] home patient eval of pt - nocturnal [...] case with Faiza's daughter who had left [facility]. She is interested in looking at assisted living facilities for her mom as Faiza's family is for assisted living placement sooner rather than later. 10/12/2015 Appointment: Yarely Vega [facility]el[id number] ([facility] min) Moderate 10/12/2015 [...] Completed 08/17/2015 Appointment: [facility] [phone] [id number] ([facility] min) Moderate 08/11/2015 Appointment: Injection [...] 2 05/19/2015 Appointment: [facility] [phone] [id number] (30 min) Complex 05/19/2015 [...] prn alprazolam. 01/13/2015 Appointment: Yarely Vega WPtel: [address] [place], [place] [id number] (15 min) Moderate 01/13/2015 Patient Education: Patient [...] medications. 12/16/2014 Appointment: [facility] [phone] [phone] [place] ([place] New Patient 12/16/2014 Patient [...] case with Faiza's daughter who had left [facility]. She is interested in looking [...] DOPA paperwork for health care surrogate. . Eggnpw-[id number]-hikkyifm protonix-follow up with Dr Navarro as scheduled [...] Fatigue/malaise -Pt was advsied to ask the Marketing And Promotions Manager the following: ask the heart doctor [...] pt is not interested in surgical intervention. talk to Heart doctor about possible amiodarone [...] wall. Fatigue - pt to discuss with Marketing And Promotions Manager about the possibility of amiodarone causing her fatigue/malaise. ask the heart doctor if there is [...] Fatigue/malaise -Pt was advsied to ask the Marketing And Promotions Manager the following: ask the heart doctor [...] control. headaches - take topamax at bedtime Stop Keflex Start Doxycycline - probiotic while [...] the patients recent sleep study - recommended [place] home patient eval of pt - nocturnal [...] the patients recent sleep study - recommended [place] home patient eval of pt - nocturnal [...] her DOPA paperwork for health care surrogate. loratadine - generic for CLARITIN - take [...]
--- OUTSIDE RECORDS SUMMARY | 2018-12-05 20:05 | XMS REPORT | CCD ---
Author Author [facility] Organization [facility] Address [address] [place] [address] Phone Care Team Providers Care Patrol Guard Name Role Phone PP Unavailable CCM Unavailable Summary Purpose Interface Exchange Insurance Providers Payer name Policy type / Coverage type Covered republican ID Effective Begin Date Effective End Date WPS Medicare Part B Medicare Part B [id number] Unknown Principal Life Insurance Medicare Part B [id number] Unknown Family history Brother Diagnosis Age At Onset Heart Attack Unknown Mother Diagnosis Age At Onset Hypertension Unknown kidney disease Unknown Stroke Unknown Father Diagnosis Age At Onset Arthritis Unknown Social History Social History Element Codes Description Effective Dates Employment Unknown Retired worked at [employer] 11/20/2017 Marital status Unknown Single 12/16/[address]: 1033422 Former smoker 12/16/[address]: 144319245 Never drinks alcohol 12/16/2014 Allergies, Adverse Reactions, Alerts Substance Reaction Codes Entered Date Inactivated Date Status CODEINE RxNorm: 2670 05/25/2016 No Inactive Date Active ciprofloxacin RxNorm: 50385 12/16/2014 No Inactive Date Active MORPHINE SULFATE [...] Start Date Stop Date Status Fill Instructions Mobic 15 mg tablet RxNorm: 340006 Tablet(s) 1 Tablet(s) PO daily 04/26/2018 04/20/2019 Active cyanocobalamin (vit B-12) 1,000 mcg/mL injection solution RxNorm: 582229 Milliliter(s) Inj 04/26/2018 04/26/2018 Inactive buspirone 15 mg tablet RxNorm: 352960 Tablet(s) TAKE 1 TABLET BY MOUTH TWICE DAILY 04/26/2018 04/20/2019 Active Generic For:BUSPAR 15MG 05/31/2017 9:19:20 AM Norvasc 5 mg tablet RxNorm: 544377 Tablet(s) 1 Tablet(s) PO daily 04/26/2018 04/20/2019 Active hydrocodone 5 mg-acetaminophen 325 mg tablet RxNorm: 289927 1-2 Tablet(s) PO Q6 as needed for pain 04/25/2018 05/24/2018 Active cyanocobalamin (vit B-12) 1,000 mcg/mL injection solution RxNorm: 849126 Milliliter(s) Inj 04/12/2018 04/12/2018 Inactive Topamax 25 mg tablet RxNorm: 792683 1 Tablet(s) PO BID 04/09/2018 08/06/2018 Active Generic For:TOPAMAX 25MG 12/06/2016 9:15:13 AM Zoloft 50 mg tablet RxNorm: 298233 TAKE 1 TABLET BY MOUTH ONCE DAILY 04/04/2018 12/29/2018 Active Generic For:ZOLOFT 50MG 04/04/2018 9:13:25 AM cyanocobalamin (vit B-12) 1,000 mcg/mL injection solution RxNorm: 519190 Milliliter(s) Inj 03/30/2018 03/30/2018 Inactive levothyroxine 125 mcg tablet RxNorm: 391606 TAKE 1 TABLET BY MOUTH EVERY DAY 03/26/2018 09/21/2018 Active Generic For:SYNTHROID 125MCG TAB 03/26/2018 9:15:59 AM liothyronine 5 mcg tablet RxNorm: 302638 TAKE 1 TABLET BY MOUTH TWICE DAILY 03/26/2018 09/21/2018 Active Generic For:CYTOMEL 5MCG 03/26/2018 9:15:54 AM hydrocodone 5 mg-acetaminophen 325 mg tablet RxNorm: 619441 1-2 Tablet(s) PO Q6 as needed for pain 03/19/2018 04/17/2018 Inactive cyanocobalamin (vit B-12) 1,000 mcg/mL injection solution RxNorm: 626763 Milliliter(s) Inj 03/16/2018 03/16/2018 Inactive Flonase Allergy Relief 50 mcg/actuation nasal spray,suspension RxNorm: 9873492 1 [place] NASAL BID 03/05/2018 07/02/2018 Active cyanocobalamin (vit B-12) 1,000 mcg/mL injection solution RxNorm: 433429 Milliliter(s) Inj 03/02/2018 03/02/2018 Inactive alprazolam 0.25 mg tablet RxNorm: 925827 1 Tablet(s) PO BID 02/28/2018 05/28/2018 Active cyanocobalamin (vit B-12) 1,000 mcg/mL injection solution RxNorm: 311663 Milliliter(s) Inj 02/08/2018 02/08/2018 Inactive albuterol sulfate 2.5 mg/3 mL (0.083 %) solution for nebulization RxNorm: 257416 3 Milliliter(s) INH Q6 PRN 01/24/2018 No Stop Date Active cyanocobalamin (vit B-12) 1,000 mcg/mL injection solution RxNorm: 898007 Milliliter(s) Inj 01/24/2018 01/24/2018 Inactive Claritin 10 mg tablet RxNorm: 368540 1 Tablet(s) PO daily 01/15/2018 05/14/2018 Active cyanocobalamin (vit B-12) 1,000 mcg/mL injection solution RxNorm: 425924 Milliliter(s) Inj 01/10/2018 01/10/2018 Inactive hydrocodone 5 mg-acetaminophen 325 mg tablet RxNorm: 761589 1-2 Tablet(s) PO Q6 as needed for pain 01/09/2018 02/07/2018 Inactive cyanocobalamin (vit B-12) 1,000 mcg/mL injection solution RxNorm: 713257 Milliliter(s) Inj 12/27/2017 12/27/2017 Inactive cyanocobalamin (vit B-12) 1,000 mcg/mL injection solution RxNorm: 080788 1 Milliliter(s) Inj 12/12/2017 12/12/2017 Inactive Zofran ODT 4 mg disintegrating tablet RxNorm: 591085 1 Tablet(s) PO TID as needed 12/08/2017 12/09/2017 Inactive hydrocodone 2.5 mg-guaifenesin 200 mg/5 mL oral solution RxNorm: 452026 5 Milliliter(s) PO 12/04/2017 No Stop Date Active doxycycline hyclate 100 mg capsule RxNorm: 8014372 1 Capsule(s) PO BID 12/04/2017 12/13/2017 Inactive cyanocobalamin (vit B-12) 1,000 mcg/mL injection solution RxNorm: 793216 Milliliter(s) Inj 12/01/2017 12/01/2017 Inactive Flonase Allergy Relief 50 mcg/actuation nasal spray,suspension RxNorm: 6387835 1 [place] NASAL BID 11/20/2017 2018 Inactive cyanocobalamin (vit B-12) 1,000 mcg/mL injection solution RxNorm: 167675 1 Milliliter(s) Inj 11/17/2017 11/17/2017 Inactive hydrocodone 5 mg-acetaminophen 325 mg tablet RxNorm: 253075 1-2 Tablet(s) PO Q6 as needed for pain 11/16/2017 12/15/2017 Inactive cyanocobalamin (vit B-12) 1,000 mcg/mL injection solution RxNorm: 473386 1 Milliliter(s) Inj 11/02/2017 11/02/2017 Inactive hydrocodone 5 mg-acetaminophen 325 mg tablet RxNorm: 593701 1-2 Tablet(s) PO Q6 as needed for pain 10/25/2017 11/15/2017 Inactive Claritin 10 mg tablet RxNorm: 388254 1 Tablet(s) PO daily 10/25/2017 11/19/2017 Inactive albuterol sulfate 2.5 mg/3 mL (0.083 %) solution for nebulization RxNorm: 376130 3 Milliliter(s) INH Q6 PRN 10/25/2017 01/23/2018 Inactive Claritin 10 mg tablet RxNorm: 429855 1 Tablet(s) PO daily 10/25/2017 10/24/2017 Inactive cyanocobalamin (vit B-12) 1,000 mcg/mL injection solution RxNorm: 121335 1 Milliliter(s) Inj 10/20/2017 10/20/2017 Inactive Zoloft 50 mg tablet RxNorm: 442573 TAKE 1 TABLET BY MOUTH ONCE DAILY 10/13/2017 04/03/2018 Inactive Generic For:ZOLOFT 50MG 10/13/2017 8:59:44 AM cyanocobalamin (vit B-12) 1,000 mcg/mL injection solution RxNorm: 736990 Milliliter(s) Inj 10/06/2017 10/06/2017 Inactive liothyronine 5 mcg tablet RxNorm: 824211 TAKE 1 TABLET BY MOUTH TWICE DAILY 10/03/2017 03/25/2018 Inactive Generic For:CYTOMEL 5MCG 10/03/2017 9:13:38 AM cyanocobalamin (vit B-12) 1,000 mcg/mL injection solution RxNorm: 958943 Milliliter(s) Inj 09/21/2017 09/21/2017 Inactive albuterol sulfate 2.5 mg/3 mL (0.083 %) solution for nebulization RxNorm: 932250 3 Milliliter(s) INH Q6 PRN 09/21/2017 10/24/2017 Inactive hydrocodone 5 mg-acetaminophen 325 mg tablet RxNorm: 205018 1-2 Tablet(s) PO Q6 as needed for pain 09/21/2017 10/20/2017 Inactive Kenalog 40 mg/mL suspension for injection RxNorm: 6378173 Milliliter(s) Inj 09/15/2017 09/15/2017 Inactive Keflex 500 mg capsule RxNorm: 951848 1 Capsule(s) PO TID 09/07/2017 09/16/2017 Inactive Please deliver to patient cyanocobalamin (vit B-12) 1,000 mcg/mL injection solution RxNorm: 917871 Milliliter(s) Inj 09/07/2017 09/07/2017 Inactive Aricept 10 mg tablet RxNorm: 652825 1 Tablet(s) PO daily 09/06/2017 08/31/2018 Active alprazolam 0.25 mg tablet RxNorm: 990580 1 Tablet(s) PO BID 09/06/2017 02/27/2018 Inactive hydrocodone 5 mg-acetaminophen 325 mg tablet RxNorm: 771157 1-2 Tablet(s) PO Q6 as needed for pain 08/24/2017 09/20/2017 Inactive cyanocobalamin (vit B-12) 1,000 mcg/mL injection solution RxNorm: 133713 Milliliter(s) Inj 08/24/2017 08/24/2017 Inactive Norvasc 5 mg tablet RxNorm: 146741 1 Tablet(s) PO daily 08/18/2017 04/25/2018 Inactive nystatin 100,000 unit/gram topical powder RxNorm: 963453 1 Gram(s) TOP QID 08/17/2017 08/26/2017 Inactive hydrocodone 5 mg-acetaminophen 325 mg tablet RxNorm: 171905 1-2 Tablet(s) PO Q6 as needed for pain 07/25/2017 08/23/2017 Inactive Tamiflu 75 mg capsule RxNorm: 301851 1 Capsule(s) PO BID 07/24/2017 12/11/2017 Inactive nystatin 100,000 unit/gram topical powder RxNorm: 644888 1 Gram(s) TOP QID 07/14/2017 07/22/2017 Inactive levothyroxine 125 mcg tablet RxNorm: 120163 Tablet(s) 1 Tablet(s) PO daily 07/10/2017 01/05/2018 Inactive nystatin 100,000 unit/gram topical powder RxNorm: 025771 1 Gram(s) TOP QID 07/06/2017 07/13/2017 Inactive cyanocobalamin (vit B-12) 1,000 mcg/mL injection solution RxNorm: 345211 Milliliter(s) Inj 07/06/2017 07/06/2017 Inactive Kenalog 40 mg/mL suspension for injection RxNorm: 9434597 1 Milliliter(s) Inj 06/20/2017 06/20/2017 Inactive doxycycline hyclate 100 mg capsule RxNorm: 5892866 1 Capsule(s) PO BID 06/20/2017 06/26/2017 Inactive cyanocobalamin (vit B-12) 1,000 mcg/mL injection solution RxNorm: 455255 Milliliter(s) Inj 06/20/2017 06/20/2017 Inactive Keflex 500 mg capsule RxNorm: 587912 1 Capsule(s) PO TID 06/14/2017 06/23/2017 Inactive Please deliver to patient Mobic 15 mg tablet RxNorm: 696625 1 Tablet(s) PO daily 06/14/2017 04/25/2018 Inactive cyanocobalamin (vit B-12) 1,000 mcg/mL injection solution RxNorm: 973346 Milliliter(s) Inj 06/05/2017 06/05/2017 Inactive buspirone 15 mg tablet RxNorm: 422719 TAKE 1 TABLET BY MOUTH TWICE DAILY 05/31/2017 04/25/2018 Inactive Generic For:BUSPAR 15MG 05/31/2017 9:19:20 AM cyanocobalamin (vit B-12) 1,000 mcg/mL injection solution RxNorm: 209032 Milliliter(s) Inj 05/25/2017 05/25/2017 Inactive hydrocodone 5 mg-acetaminophen 325 mg tablet RxNorm: 732567 1-2 Tablet(s) PO Q6 as needed for pain 05/25/2017 06/23/2017 Inactive amiodarone 200 mg tablet RxNorm: 695488 1/2 Tablet(s) PO daily 05/22/2017 No Stop Date Active cardiology decreased to 100mg daily cyanocobalamin (vit B-12) 1,000 mcg/mL injection solution RxNorm: 837389 Milliliter(s) Inj 05/16/2017 05/16/2017 Inactive Zofran ODT 4 mg disintegrating tablet RxNorm: 611376 1 Tablet(s) PO TID as needed 05/03/2017 05/04/2017 Inactive hydrocodone 5 mg-acetaminophen 325 mg tablet RxNorm: 674967 1-2 Tablet(s) PO Q6 as needed for pain 05/01/2017 05/05/2017 Inactive cyanocobalamin (vit B-12) 1,000 mcg/mL injection solution RxNorm: 469649 1 Milliliter(s) Inj 05/01/2017 05/01/2017 Inactive cyanocobalamin (vit B-12) 1,000 mcg/mL injection solution RxNorm: 363108 INJECT ONE 1 ML EVERY TWO WEEKS 04/26/2017 12/04/2018 Active 04/26/2017 9:08:52 AM Zoloft 50 mg tablet RxNorm: 278117 Tablet(s) TAKE 1 TABLET BY MOUTH DAILY 04/25/2017 10/12/2017 Inactive Generic For:ZOLOFT 50MG cyanocobalamin (vit B-12) 1,000 mcg/mL injection solution RxNorm: 314666 Milliliter(s) Inj 04/18/2017 04/18/2017 Inactive liothyronine 5 mcg tablet RxNorm: 445577 1 Tablet(s) PO BID 04/13/2017 10/02/2017 Inactive cyanocobalamin (vit B-12) 1,000 mcg/mL injection solution RxNorm: 437712 Milliliter(s) Inj 04/06/2017 04/06/2017 Inactive hydrocodone 5 mg-acetaminophen 325 mg tablet RxNorm: 804770 1-2 Tablet(s) PO Q6 as needed for pain 04/06/2017 04/10/2017 Inactive cyanocobalamin (vit B-12) 1,000 mcg/mL injection solution RxNorm: 160152 Milliliter(s) Inj 03/22/2017 03/22/2017 Inactive alprazolam 0.25 mg tablet RxNorm: 591159 1 Tablet(s) PO BID 03/17/2017 12/11/2017 Inactive alprazolam 0.25 mg tablet RxNorm: 686527 1 Tablet(s) PO BID 03/16/2017 09/05/2017 Inactive hydrocodone 5 mg-acetaminophen 325 mg tablet RxNorm: 375741 1-2 Tablet(s) PO Q6 as needed for pain 03/09/2017 03/13/2017 Inactive cyanocobalamin (vit B-12) 1,000 mcg/mL injection solution RxNorm: 038101 Milliliter(s) Inj 03/09/2017 03/09/2017 Inactive cyanocobalamin (vit B-12) 1,000 mcg/mL injection solution RxNorm: 788219 Milliliter(s) Inj 02/23/2017 02/23/2017 Inactive cyanocobalamin (vit B-12) 1,000 mcg/mL injection solution RxNorm: 597176 Milliliter(s) Inj 02/09/2017 02/09/2017 Inactive hydrocodone 5 mg-acetaminophen 325 mg tablet RxNorm: 688819 1-2 Tablet(s) PO Q6 as needed for pain 02/08/2017 02/12/2017 Inactive Topamax 25 mg tablet RxNorm: 145771 1 Tablet(s) PO BID 01/23/2017 05/22/2017 Inactive Generic For:TOPAMAX 25MG 12/06/2016 9:15:13 AM cyanocobalamin (vit B-12) 1,000 mcg/mL injection solution RxNorm: 233241 Milliliter(s) Inj 01/23/2017 01/23/2017 Inactive cyanocobalamin (vit B-12) 1,000 mcg/mL injection solution RxNorm: 375738 Milliliter(s) Inj 01/10/2017 01/10/2017 Inactive hydrocodone 5 mg-acetaminophen 325 mg tablet RxNorm: 949558 1-2 Tablet(s) PO Q6 as needed for pain 01/09/2017 01/13/2017 Inactive cyanocobalamin (vit B-12) 1,000 mcg/mL injection solution RxNorm: 451130 1 Milliliter(s) Inj 12/28/2016 12/28/2016 Inactive cyanocobalamin (vit B-12) 1,000 mcg/mL injection solution RxNorm: 001851 Milliliter(s) Inj 12/14/2016 12/14/2016 Inactive buspirone 15 mg tablet RxNorm: 124143 1 Tablet(s) PO BID 12/12/2016 05/30/2017 Inactive hydrocodone 5 mg-acetaminophen 325 mg tablet RxNorm: 344727 1-2 Tablet(s) PO Q6 as needed for pain 12/08/2016 12/12/2016 Inactive Topamax 25 mg tablet RxNorm: 626015 TAKE 1 TABLET BY MOUTH EVERY DAY AT BEDTIME 12/06/2016 01/22/2017 Inactive Generic For:TOPAMAX 25MG 12/06/2016 9:15:13 AM Lac-Hydrin Five 5 % lotion RxNorm: 480494 1 Gram(s) TOP daily 12/02/2016 01/30/2017 Inactive cyanocobalamin (vit B-12) 1,000 mcg/mL injection solution RxNorm: 588290 Milliliter(s) Inj 11/24/2016 11/24/2016 Inactive Ceftin 500 mg tablet RxNorm: 210529 1 Tablet(s) PO BID 11/11/2016 06/13/2017 Inactive Cipro 500 mg tablet RxNorm: 042719 1 Tablet(s) PO BID 11/11/2016 11/10/2016 Inactive Cipro 500 mg tablet RxNorm: 608566 1 Tablet(s) PO BID 11/11/2016 11/11/2016 Inactive cyanocobalamin (vit B-12) 1,000 mcg/mL injection solution RxNorm: 206202 1 Milliliter(s) Inj 11/07/2016 11/07/2016 Inactive hydrocodone 5 mg-acetaminophen 325 mg tablet RxNorm: 331194 1-2 Tablet(s) PO Q6 as needed for pain 11/02/2016 11/06/2016 Inactive cyanocobalamin (vit B-12) 1,000 mcg/mL injection solution RxNorm: 548523 Milliliter(s) Inj 10/24/2016 10/24/2016 Inactive levothyroxine 125 mcg tablet RxNorm: 437871 Tablet(s) 1 Tablet(s) PO daily 10/24/2016 04/21/2017 Inactive liothyronine 5 mcg tablet RxNorm: 874135 1 Tablet(s) PO BID 10/24/2016 04/12/2017 Inactive hydrocodone 5 mg-acetaminophen 325 mg tablet RxNorm: 261506 1-2 Tablet(s) PO Q6 as needed for pain 10/17/2016 10/21/2016 Inactive Keflex 500 mg capsule RxNorm: 491264 1 Capsule(s) PO TID 10/07/2016 10/06/2016 Inactive Keflex 500 mg capsule RxNorm: 375773 1 Capsule(s) PO TID 10/07/2016 10/16/2016 Inactive Please deliver to patient cyanocobalamin (vit B-12) 1,000 mcg/mL injection solution RxNorm: 717843 1 Milliliter(s) Inj 09/29/2016 09/29/2016 Inactive alprazolam 0.25 mg tablet RxNorm: 742194 1 Tablet(s) PO BID 09/20/2016 03/16/2017 Inactive Cozaar 100 mg tablet RxNorm: 357597 1 Tablet(s) PO daily 09/14/2016 No Stop Date Active metoprolol tartrate 50 mg tablet RxNorm: 800731 1/2 Tablet(s) PO BID 09/14/2016 12/12/2016 Inactive Zoloft 50 mg tablet RxNorm: 876142 Tablet(s) TAKE 1 TABLET BY MOUTH DAILY 09/14/2016 03/12/2017 Inactive Generic For:ZOLOFT 50MG liothyronine 5 mcg tablet RxNorm: 823990 1 Tablet(s) PO BID 09/14/2016 10/23/2016 Inactive Calmoseptine 0.44 %-20.6 % topical ointment RxNorm: 589966 1 Application TOP BID and as needed to sore on buttocks 09/07/2016 No Stop Date Active cyanocobalamin (vit B-12) 1,000 mcg/mL injection solution RxNorm: 359228 Milliliter(s) Inj 08/29/2016 08/29/2016 Inactive hydrocodone 5 mg-acetaminophen 325 mg tablet RxNorm: 199612 1-2 Tablet(s) PO Q6 as needed for pain 08/29/2016 10/16/2016 Inactive levothyroxine 125 mcg tablet RxNorm: 047344 1 Tablet(s) PO daily 08/25/2016 10/23/2016 Inactive Topamax 25 mg tablet RxNorm: 539338 TAKE 1 TABLET BY MOUTH EVERY DAY AT BEDTIME 08/17/2016 12/05/2016 Inactive Generic For:TOPAMAX 25MG 08/17/2016 2:14:37 PM hydrocodone 5 mg-acetaminophen 325 mg tablet RxNorm: 748570 1-2 Tablet(s) PO Q6 as needed for pain 08/11/2016 08/28/2016 Inactive hydrocodone 5 mg-acetaminophen 325 mg tablet RxNorm: 139489 1 -2 Tablet(s) PO Q6 as needed for pain 08/11/2016 08/18/2016 Inactive hydrocodone 5 mg-acetaminophen 325 mg tablet RxNorm: 223445 1 Tablet(s) PO Q6 as needed for pain 08/05/2016 08/10/2016 Inactive cyanocobalamin (vit B-12) 1,000 mcg/mL injection solution RxNorm: 171338 Milliliter(s) Inj 08/04/2016 08/04/2016 Inactive Norvasc 10 mg tablet RxNorm: 419973 1 Tablet(s) PO daily 07/26/2016 07/20/2017 Inactive alprazolam 0.25 mg tablet RxNorm: 666236 1 Tablet(s) PO QHS 07/21/2016 09/19/2016 Inactive Norvasc 5 mg tablet RxNorm: 206031 1 Tablet(s) PO daily 07/21/2016 07/25/2016 Inactive levothyroxine 125 mcg tablet RxNorm: 134632 1 Tablet(s) PO daily 07/21/2016 12/11/2017 Inactive cyanocobalamin (vit B-12) 1,000 mcg/mL injection solution RxNorm: 693941 Milliliter(s) Inj 07/21/2016 07/21/2016 Inactive Zoloft 50 mg tablet RxNorm: 215352 Tablet(s) TAKE 1 TABLET BY MOUTH DAILY 07/21/2016 09/13/2016 Inactive Generic For:ZOLOFT 50MG cyanocobalamin (vit B-12) 1,000 mcg/mL injection solution RxNorm: 944441 1 Milliliter(s) Inj 07/05/2016 07/05/2016 Inactive cyanocobalamin (vit B-12) 1,000 mcg/mL injection solution RxNorm: 073238 1 Milliliter(s) Inj 06/22/2016 06/22/2016 Inactive cyanocobalamin (vit B-12) 1,000 mcg/mL injection solution RxNorm: 848470 Milliliter(s) Inj 06/09/2016 06/09/2016 Inactive Aricept 10 mg tablet RxNorm: 373005 1 Tablet(s) PO daily 05/27/2016 05/21/2017 Inactive Mobic 15 mg tablet RxNorm: 620212 1 Tablet(s) PO daily 05/27/2016 05/21/2017 Inactive levothyroxine 125 mcg tablet RxNorm: 114009 1 Tablet(s) PO daily 05/25/2016 07/20/2016 Inactive cyanocobalamin (vit B-12) 1,000 mcg/mL injection solution RxNorm: 474086 1 Milliliter(s) Inj 05/25/2016 05/25/2016 Inactive doxycycline hyclate 100 mg capsule RxNorm: 8519460 1 Capsule(s) PO BID 05/16/2016 05/15/2016 Inactive doxycycline hyclate 100 mg capsule RxNorm: 5898857 1 Capsule(s) PO BID 05/16/2016 05/22/2016 Inactive cyanocobalamin (vit B-12) 1,000 mcg/mL injection solution RxNorm: 845497 Milliliter(s) Inj 05/10/2016 05/10/2016 Inactive cyanocobalamin (vit B-12) 1,000 mcg/mL injection solution RxNorm: 660162 Milliliter(s) Inj 04/26/2016 04/26/2016 Inactive Topamax 25 mg tablet RxNorm: 760838 1 Tablet(s) PO QPM 04/22/2016 08/16/2016 Inactive cyanocobalamin (vit B-12) 1,000 mcg/mL injection solution RxNorm: 826370 Milliliter(s) 1 Milliliter(s) Inj [id number] 04/11/2016 12/31/2017 Inactive liothyronine 5 mcg tablet RxNorm: 155121 1 Tablet(s) PO BID 04/11/2016 09/13/2016 Inactive cyanocobalamin (vit B-12) 1,000 mcg/mL injection solution RxNorm: 938480 Milliliter(s) Inj 04/11/2016 04/11/2016 Inactive cyanocobalamin (vit B-12) 1,000 mcg/mL injection solution RxNorm: 652960 Milliliter(s) Inj 03/31/2016 03/31/2016 Inactive cyanocobalamin (vit B-12) 1,000 mcg/mL injection solution RxNorm: 210877 1 Milliliter(s) Inj 03/15/2016 03/15/2016 Inactive levothyroxine 125 mcg tablet RxNorm: 483563 1 Tablet(s) PO daily 2016 03/03/2016 Inactive levothyroxine 125 mcg tablet RxNorm: 986934 1 Tablet(s) PO daily 2016 05/24/2016 Inactive cyanocobalamin (vit B-12) 1,000 mcg/mL injection solution RxNorm: 171303 Milliliter(s) Inj 02/25/2016 02/25/2016 Inactive cyanocobalamin (vit B-12) 1,000 mcg/mL injection solution RxNorm: 345325 1 Milliliter(s) Inj 02/02/2016 02/02/2016 Inactive sucralfate 1 gram tablet RxNorm: 894619 1 Tablet(s) PO QHS 01/25/2016 No Stop Date Active amiodarone 200 mg tablet RxNorm: 337559 1/2 Tablet(s) PO BID 01/25/2016 05/21/2017 Inactive cyanocobalamin (vit B-12) 1,000 mcg/mL injection solution RxNorm: 249123 Milliliter(s) Inj 01/18/2016 01/18/2016 Inactive cyanocobalamin (vit B-12) 1,000 mcg/mL injection solution RxNorm: 962254 Milliliter(s) Inj 12/29/2015 12/29/2015 Inactive Topamax 25 mg tablet RxNorm: 457125 1 Tablet(s) PO QPM 12/08/2015 04/05/2016 Inactive cyanocobalamin (vit B-12) 1,000 mcg/mL injection solution RxNorm: 358120 Milliliter(s) Inj 12/08/2015 12/08/2015 Inactive Bactrim DS 800 mg-160 mg tablet RxNorm: 394469 1 Tablet(s) PO BID 11/23/2015 11/22/2015 Inactive cyanocobalamin (vit B-12) 1,000 mcg/mL injection solution RxNorm: 329432 Milliliter(s) Inj 11/23/2015 11/23/2015 Inactive Bactrim DS 800 mg-160 mg tablet RxNorm: 847158 1 Tablet(s) PO BID 11/23/2015 11/29/2015 Inactive cyanocobalamin (vit B-12) 1,000 mcg/mL injection solution RxNorm: 980349 Milliliter(s) Inj 11/11/2015 11/11/2015 Inactive amoxicillin 500 mg capsule RxNorm: 160977 1 Capsule(s) PO TID 11/10/2015 11/19/2015 Inactive Zithromax Z-Henrique 250 mg tablet RxNorm: 799589 1 Tablet(s) PO UD 11/10/2015 01/24/2016 Inactive zpack x 1 amoxicillin 500 mg capsule RxNorm: 391657 1 Capsule(s) PO TID 11/10/2015 11/09/2015 Inactive cyanocobalamin (vit B-12) 1,000 mcg/mL injection solution RxNorm: 552773 1 Milliliter(s) Inj 10/29/2015 10/29/2015 Inactive [place] 3 capsule RxNorm: 1 Capsule(s) PO QAM , 2 Capsules at noon, 1 Capsule QHS 10/13/2015 No Stop Date Active potassium chloride ER 20 mEq tablet,extended release RxNorm: 344437 2 Tablet(s) PO daily at noon 10/13/2015 No Stop Date Active alprazolam 0.25 mg tablet RxNorm: 178750 1 Tablet(s) PO QHS 10/13/2015 07/20/2016 Inactive amiodarone 200 mg tablet RxNorm: 555994 1 Tablet(s) PO BID 10/13/2015 01/24/2016 Inactive cyanocobalamin (vit B-12) 1,000 mcg/mL injection solution RxNorm: 333391 1 Milliliter(s) Inj 10/12/2015 10/12/2015 Inactive Zofran 4 mg tablet RxNorm: 603016 1 Tablet(s) PO daily as needed 10/07/2015 05/24/2016 Inactive Zoloft 50 mg tablet RxNorm: 805924 TAKE 1 TABLET BY MOUTH DAILY 10/05/2015 05/01/2016 Inactive Generic For:ZOLOFT 50MG cyanocobalamin (vit B-12) 1,000 mcg/mL injection solution RxNorm: 685003 1 Milliliter(s) Inj 09/29/2015 09/29/2015 Inactive cyanocobalamin (vit B-12) 1,000 mcg/mL injection solution RxNorm: 256665 1 Milliliter(s) Inj 09/17/2015 09/17/2015 Inactive Norvasc 5 mg tablet RxNorm: 746577 1 Tablet(s) PO daily 09/17/2015 07/20/2016 Inactive liothyronine 5 mcg tablet RxNorm: 433774 1 Tablet(s) PO BID 09/17/2015 03/14/2016 Inactive Zoloft 50 mg tablet RxNorm: 426196 1 Tablet(s) PO daily 09/17/2015 10/04/2015 Inactive buspirone 15 mg tablet RxNorm: 308694 1 Tablet(s) PO BID 09/17/2015 09/10/2016 Inactive buspirone 15 mg tablet RxNorm: 290761 1 Tablet(s) PO BID 09/14/2015 09/16/2015 Inactive Topamax 25 mg tablet RxNorm: 210548 1 Tablet(s) PO QPM 09/03/2015 12/07/2015 Inactive cyanocobalamin (vit B-12) 1,000 mcg/mL injection solution RxNorm: 840768 1 Milliliter(s) Inj 09/03/2015 09/03/2015 Inactive cyanocobalamin (vit B-12) 1,000 mcg/mL injection solution RxNorm: 391392 Milliliter(s) Inj 08/17/2015 08/17/2015 Inactive cyanocobalamin (vit B-12) 1,000 mcg/mL injection solution RxNorm: 644622 Milliliter(s) Inj 08/06/2015 08/06/2015 Inactive levothyroxine 150 mcg tablet RxNorm: 764406 1 Tablet(s) PO daily 07/22/2015 03/03/2016 Inactive Aricept 10 mg tablet RxNorm: 057006 1 Tablet(s) PO daily 07/22/2015 05/26/2016 Inactive Mobic 15 mg tablet RxNorm: 647423 1 Tablet(s) PO daily 07/22/2015 05/26/2016 Inactive cyanocobalamin (vit B-12) 1,000 mcg/mL injection solution RxNorm: 963158 Milliliter(s) Inj 07/22/2015 07/22/2015 Inactive liothyronine 5 mcg tablet RxNorm: 130573 1 Tablet(s) PO BID 07/22/2015 09/16/2015 Inactive cyanocobalamin (vit B-12) 1,000 mcg/mL injection solution RxNorm: 934679 Milliliter(s) Inj 07/08/2015 07/08/2015 Inactive cyanocobalamin (vit B-12) 1,000 mcg/mL injection solution RxNorm: 250997 Milliliter(s) Inj 06/23/2015 06/23/2015 Inactive cyanocobalamin (vit B-12) 1,000 mcg/mL injection solution RxNorm: 293912 1 Milliliter(s) Inj 06/08/2015 06/08/2015 Inactive cyanocobalamin (vit B-12) 1,000 mcg/mL injection solution RxNorm: 430640 Milliliter(s) Inj 05/27/2015 05/27/2015 Inactive Aricept 10 mg tablet RxNorm: 863190 1 Tablet(s) PO daily 05/20/2015 07/21/2015 Inactive Zofran 4 mg tablet RxNorm: 181629 1 Tablet(s) PO daily as needed 05/20/2015 06/18/2015 Inactive alprazolam 0.25 mg tablet RxNorm: 677517 1 Tablet(s) PO BID 05/20/2015 10/12/2015 Inactive Mobic 15 mg tablet RxNorm: 152978 1 Tablet(s) PO daily 05/20/2015 07/21/2015 Inactive tramadol ER 100 mg tablet,extended release 24 hr RxNorm: 325820 1 Tablet(s) PO Q6 as needed 05/13/2015 No Stop Date Active cyanocobalamin (vit B-12) 1,000 mcg/mL injection solution RxNorm: 281962 1 Milliliter(s) Inj 05/12/2015 05/12/2015 Inactive Topamax 25 mg tablet RxNorm: 891202 1 Tablet(s) PO BID (start at one pill at bedtime x 1week then twice daily thereafter) 05/12/2015 09/02/2015 Inactive cyanocobalamin (vit B-12) 1,000 mcg/mL injection kit RxNorm: 407926 kit Inj 04/30/2015 04/30/2015 Inactive cyanocobalamin (vit B-12) 1,000 mcg/mL injection solution RxNorm: 286180 Milliliter(s) Inj 04/16/2015 04/16/2015 Inactive levothyroxine 150 mcg tablet RxNorm: 118717 1 Tablet(s) PO daily 04/08/2015 07/21/2015 Inactive cyanocobalamin (vit B-12) 1,000 mcg/mL injection solution RxNorm: 960977 Milliliter(s) 1 Milliliter(s) Inj [id number] 04/08/2015 04/10/2016 Inactive Cytomel 5 mcg tablet RxNorm: 930922 1 Tablet(s) PO BID 04/08/2015 10/12/2015 Inactive Cytomel 5 mcg tablet RxNorm: 740938 1 Tablet(s) PO BID 04/07/2015 04/07/2015 Inactive Cytomel 5 mcg tablet RxNorm: 525372 1 Tablet(s) PO BID 04/07/2015 04/06/2015 Inactive cyanocobalamin (vit B-12) 1,000 mcg/mL injection solution RxNorm: 898342 Milliliter(s) Inj 04/02/2015 04/02/2015 Inactive cyanocobalamin (vit B-12) 1,000 mcg/mL injection solution RxNorm: 395571 Milliliter(s) Inj 03/18/2015 03/18/2015 Inactive cyanocobalamin (vit B-12) 1,000 mcg/mL injection solution RxNorm: 713074 Milliliter(s) 1 Milliliter(s) Inj K3nrbcs 03/18/2015 04/07/2015 Inactive cyanocobalamin (vit B-12) 1,000 mcg/mL injection solution RxNorm: 094916 1 Milliliter(s) Inj G8hispf 03/16/2015 03/17/2015 Inactive cyanocobalamin (vit B-12) 1,000 mcg/mL injection solution RxNorm: 272373 Milliliter(s) Inj 03/03/2015 03/03/2015 Inactive cyanocobalamin (vit B-12) 1,000 mcg/mL injection solution RxNorm: 777952 Milliliter(s) Inj 02/18/2015 02/18/2015 Inactive cyanocobalamin (vit B-12) 1,000 mcg/mL injection solution RxNorm: 413719 Milliliter(s) Inj 02/04/2015 02/04/2015 Inactive cyanocobalamin (vit B-12) 1,000 mcg/mL injection solution RxNorm: 323016 Milliliter(s) Inj 01/22/2015 01/22/2015 Inactive Lac-Hydrin Five 5 % lotion RxNorm: 003418 1 TOP daily 01/13/2015 03/13/2015 Inactive Lac-Hydrin Five 5 % lotion RxNorm: 232369 1 TOP daily 01/13/2015 01/12/2015 Inactive cyanocobalamin (vit B-12) 1,000 mcg/mL injection solution RxNorm: 760443 Milliliter(s) Inj 01/08/2015 01/08/2015 Inactive cyanocobalamin (vit B-12) 1,000 mcg/mL injection solution RxNorm: 868057 Milliliter(s) Inj 12/25/2014 12/25/2014 Inactive levothyroxine 150 mcg tablet RxNorm: 615472 1 Tablet(s) PO daily 12/24/2014 04/07/2015 Inactive tramadol 50 mg tablet RxNorm: 216752 1-2 Tablet(s) PO Q6 as needed 12/17/2014 05/12/2015 Inactive alprazolam 0.25 mg tablet RxNorm: 073794 1 Tablet(s) PO BID 12/17/2014 04/15/2015 Inactive Pradaxa 150 mg capsule RxNorm: 7803198 1 Capsule(s) PO BID 12/16/2014 No Stop Date Active metoprolol tartrate 50 mg tablet RxNorm: 752146 1/2 Tablet(s) PO BID 12/16/2014 09/13/2016 Inactive buspirone 15 mg tablet RxNorm: 179130 1 Tablet(s) PO BID 12/16/2014 09/13/2015 Inactive cyanocobalamin (vit B-12) 1,000 mcg/mL injection solution RxNorm: 840908 1 Milliliter(s) Inj M0nciex 12/16/2014 03/15/2015 Inactive cyanocobalamin (vit B-12) 1,000 mcg/mL injection solution RxNorm: 475088 1 Milliliter(s) Inj R4emodq 12/16/2014 12/15/2014 Inactive sucralfate 1 gram tablet RxNorm: 574386 Tablet(s) PO QID 12/16/2014 12/10/2015 Inactive cyanocobalamin (vit B-12) 1,000 mcg/mL injection solution RxNorm: 671745 Milliliter(s) Inj 12/10/2014 12/10/2014 Inactive cyanocobalamin (vit B-12) 1,000 mcg/mL injection solution RxNorm: 992990 Milliliter(s) Inj 11/26/2014 11/26/2014 Inactive Zoloft 50 mg tablet RxNorm: 834589 1 Tablet(s) PO daily 11/24/2014 06/21/2015 Inactive Zoloft 50 mg tablet RxNorm: 840094 1 Tablet(s) PO daily 11/24/2014 11/23/2014 Inactive cyanocobalamin (vit B-12) 1,000 mcg/mL injection kit RxNorm: 419575 Milliliter(s) Inj 11/12/2014 11/12/2014 Inactive cyanocobalamin (vit B-12) 1,000 mcg/mL injection solution RxNorm: 763248 Milliliter(s) Inj 10/28/2014 10/28/2014 Inactive [SAVINGS FOR NON-COVERED DRUGS -- BIN:[id number], PCN: [id number], Group: [id number], ID# [id number], Questions: . THIS IS NOT INSURANCE.] promethazine oral RxNorm: 8745 oral No Start Date Active digoxin 125 mcg tablet RxNorm: 094122 Tablet(s) PO every other day No Start Date Active furosemide 40 mg tablet RxNorm: 769332 1 Tablet(s) PO daily No Start Date Active Vitamin D3 5,000 unit tablet RxNorm: 009450 1 Tablet(s) PO daily No Start Date Active erythromycin 250 mg capsule,delayed release RxNorm: 119599 1 Capsule(s) PO AC No Start Date Active Protonix 40 mg tablet,delayed release RxNorm: 315678 1 Tablet(s) PO BID No Start Date Active Cozaar 100 mg tablet RxNorm: 958801 1 Tablet(s) PO daily No Start Date 09/13/2016 Inactive sucralfate 1 gram tablet RxNorm: 362606 Tablet(s) PO QID No Start Date 12/15/2014 Inactive amiodarone 200 mg tablet RxNorm: 853980 2 Tablet(s) PO daily No Start Date 10/13/2015 Inactive buspirone 15 mg tablet RxNorm: 911785 1 Tablet(s) PO daily No Start Date 12/15/2014 Inactive potassium chloride ER 20 mEq tablet,extended release RxNorm: 482031 1 Tablet(s) PO daily No Start Date 10/12/2015 Inactive Prilosec 40 mg capsule,delayed release RxNorm: 960276 1 Capsule(s) PO daily No Start Date 09/02/2015 Inactive [place] 3 capsule RxNorm: Capsule(s) PO No Start Date 10/12/2015 Inactive alprazolam 0.25 mg tablet RxNorm: 051864 Tablet(s) PO QHS No Start Date 12/16/2014 Inactive levothyroxine 125 mcg tablet RxNorm: 454110 1 Tablet(s) PO daily No Start Date 12/23/2014 Inactive liothyronine 5 mcg tablet RxNorm: 047435 1 Tablet(s) PO BID No Start Date 07/21/2015 Inactive Mobic 15 mg tablet RxNorm: 937815 Tablet(s) PO daily No Start Date 05/19/2015 Inactive Norvasc 5 mg tablet RxNorm: 438060 1 Tablet(s) PO daily No Start Date 09/16/2015 Inactive Zofran 4 mg tablet RxNorm: 700505 1 Tablet(s) PO daily as needed No Start Date 05/19/2015 Inactive Tamiflu 75 mg capsule RxNorm: 002307 1 Capsule(s) PO BID No Start Date 07/23/2017 Inactive tramadol 50 mg tablet RxNorm: 477865 1 Tablet(s) PO daily as needed No Start Date 12/16/2014 Inactive amiodarone 200 mg tablet RxNorm: 610549 1 Tablet(s) PO daily No Start Date 10/12/2015 Inactive Zofran ODT 4 mg disintegrating tablet RxNorm: 530467 1 Tablet(s) PO TID as needed No Start Date 05/02/2017 Inactive albuterol sulfate 2.5 mg/3 mL (0.083 %) solution for nebulization RxNorm: 978224 3 Milliliter(s) INH Q6 PRN No Start Date 09/20/2017 Inactive meclizine 25 mg tablet RxNorm: 203649 Tablet(s) PO as needed No Start Date 05/24/2016 Inactive Pradaxa 150 mg capsule RxNorm: 7903739 1 Capsule(s) PO daily No Start Date 12/15/2014 Inactive metoprolol tartrate 50 mg tablet RxNorm: 339428 1/2 Tablet(s) PO No Start Date 12/15/2014 Inactive Aricept 10 mg tablet RxNorm: 951017 Tablet(s) PO daily No Start Date 05/19/2015 Inactive Calmoseptine 0.44 %-20.6 % topical ointment RxNorm: 679421 1 Application TOP BID and as needed to sore on buttocks No Start Date 09/06/2016 Inactive Zithromax Z-Henrique 250 mg tablet RxNorm: 272628 1 Tablet(s) PO UD No Start Date 11/09/2015 Inactive zpack x 1 Medication Administered Medication Codes Instructions Start Date Status cyanocobalamin (vit B-12) 1,000 mcg/mL injection solution RxNorm: 709301 Milliliter 04/26/2018 Active cyanocobalamin (vit B-12) 1,000 mcg/mL injection solution RxNorm: 300634 Milliliter 04/12/2018 No longer Active cyanocobalamin (vit B-12) 1,000 mcg/mL injection solution RxNorm: 239562 Milliliter 03/30/2018 No longer Active cyanocobalamin (vit B-12) 1,000 mcg/mL injection solution RxNorm: 918989 Milliliter 03/16/2018 No longer Active cyanocobalamin (vit B-12) 1,000 mcg/mL injection solution RxNorm: 939836 Milliliter 03/02/2018 No longer Active cyanocobalamin (vit B-12) 1,000 mcg/mL injection solution RxNorm: 681476 Milliliter 02/08/2018 No longer Active cyanocobalamin (vit B-12) 1,000 mcg/mL injection solution RxNorm: 563486 Milliliter 01/24/2018 No longer Active cyanocobalamin (vit B-12) 1,000 mcg/mL injection solution RxNorm: 252475 Milliliter 01/10/2018 No longer Active cyanocobalamin (vit B-12) 1,000 mcg/mL injection solution RxNorm: 077180 Milliliter 12/27/2017 No longer Active cyanocobalamin (vit B-12) 1,000 mcg/mL injection solution RxNorm: 513522 1Milliliter 12/12/2017 No longer Active cyanocobalamin (vit B-12) 1,000 mcg/mL injection solution RxNorm: 145326 Milliliter 12/01/2017 No longer Active cyanocobalamin (vit B-12) 1,000 mcg/mL injection solution RxNorm: 232109 1Milliliter 11/17/2017 No longer Active cyanocobalamin (vit B-12) 1,000 mcg/mL injection solution RxNorm: 222897 1Milliliter 11/02/2017 No longer Active cyanocobalamin (vit B-12) 1,000 mcg/mL injection solution RxNorm: 460979 1Milliliter 10/20/2017 No longer Active cyanocobalamin (vit B-12) 1,000 mcg/mL injection solution RxNorm: 916673 Milliliter 10/06/2017 No longer Active cyanocobalamin (vit B-12) 1,000 mcg/mL injection solution RxNorm: 703794 Milliliter 09/21/2017 No longer Active Kenalog 40 mg/mL suspension for injection RxNorm: 5196965 Milliliter 09/15/2017 No longer Active cyanocobalamin (vit B-12) 1,000 mcg/mL injection solution RxNorm: 459878 Milliliter 09/07/2017 No longer Active cyanocobalamin (vit B-12) 1,000 mcg/mL injection solution RxNorm: 894941 Milliliter 08/24/2017 No longer Active cyanocobalamin (vit B-12) 1,000 mcg/mL injection solution RxNorm: 390215 Milliliter 07/06/2017 No longer Active cyanocobalamin (vit B-12) 1,000 mcg/mL injection solution RxNorm: 094988 Milliliter 06/20/2017 No longer Active Kenalog 40 mg/mL suspension for injection RxNorm: 5913552 1Milliliter 06/20/2017 No longer Active cyanocobalamin (vit B-12) 1,000 mcg/mL injection solution RxNorm: 346620 Milliliter 06/05/2017 No longer Active cyanocobalamin (vit B-12) 1,000 mcg/mL injection solution RxNorm: 391770 Milliliter 05/25/2017 No longer Active cyanocobalamin (vit B-12) 1,000 mcg/mL injection solution RxNorm: 789047 Milliliter 05/16/2017 No longer Active cyanocobalamin (vit B-12) 1,000 mcg/mL injection solution RxNorm: 164530 1Milliliter 05/01/2017 No longer Active cyanocobalamin (vit B-12) 1,000 mcg/mL injection solution RxNorm: 246621 Milliliter 04/18/2017 No longer Active cyanocobalamin (vit B-12) 1,000 mcg/mL injection solution RxNorm: 240509 Milliliter 04/06/2017 No longer Active cyanocobalamin (vit B-12) 1,000 mcg/mL injection solution RxNorm: 395976 Milliliter 03/22/2017 No longer Active cyanocobalamin (vit B-12) 1,000 mcg/mL injection solution RxNorm: 381678 Milliliter 03/09/2017 No longer Active cyanocobalamin (vit B-12) 1,000 mcg/mL injection solution RxNorm: 334230 Milliliter 02/23/2017 No longer Active cyanocobalamin (vit B-12) 1,000 mcg/mL injection solution RxNorm: 247251 Milliliter 02/09/2017 No longer Active cyanocobalamin (vit B-12) 1,000 mcg/mL injection solution RxNorm: 233918 Milliliter 01/23/2017 No longer Active cyanocobalamin (vit B-12) 1,000 mcg/mL injection solution RxNorm: 760210 Milliliter 01/10/2017 No longer Active cyanocobalamin (vit B-12) 1,000 mcg/mL injection solution RxNorm: 772311 1Milliliter 12/28/2016 No longer Active cyanocobalamin (vit B-12) 1,000 mcg/mL injection solution RxNorm: 801509 Milliliter 12/14/2016 No longer Active cyanocobalamin (vit B-12) 1,000 mcg/mL injection solution RxNorm: 344320 Milliliter 11/24/2016 No longer Active cyanocobalamin (vit B-12) 1,000 mcg/mL injection solution RxNorm: 742584 1Milliliter 11/07/2016 No longer Active cyanocobalamin (vit B-12) 1,000 mcg/mL injection solution RxNorm: 388169 Milliliter 10/24/2016 No longer Active cyanocobalamin (vit B-12) 1,000 mcg/mL injection solution RxNorm: 986809 1Milliliter 09/29/2016 No longer Active cyanocobalamin (vit B-12) 1,000 mcg/mL injection solution RxNorm: 209811 Milliliter 08/29/2016 No longer Active cyanocobalamin (vit B-12) 1,000 mcg/mL injection solution RxNorm: 267303 Milliliter 08/04/2016 No longer Active cyanocobalamin (vit B-12) 1,000 mcg/mL injection solution RxNorm: 133473 Milliliter 07/21/2016 No longer Active cyanocobalamin (vit B-12) 1,000 mcg/mL injection solution RxNorm: 407641 1Milliliter 07/05/2016 No longer Active cyanocobalamin (vit B-12) 1,000 mcg/mL injection solution RxNorm: 396150 1Milliliter 06/22/2016 No longer Active cyanocobalamin (vit B-12) 1,000 mcg/mL injection solution RxNorm: 933081 Milliliter 06/09/2016 No longer Active cyanocobalamin (vit B-12) 1,000 mcg/mL injection solution RxNorm: 879320 1Milliliter 05/25/2016 No longer Active cyanocobalamin (vit B-12) 1,000 mcg/mL injection solution RxNorm: 922262 Milliliter 05/10/2016 No longer Active cyanocobalamin (vit B-12) 1,000 mcg/mL injection solution RxNorm: 758516 Milliliter 04/26/2016 No longer Active cyanocobalamin (vit B-12) 1,000 mcg/mL injection solution RxNorm: 065007 Milliliter 04/11/2016 No longer Active cyanocobalamin (vit B-12) 1,000 mcg/mL injection solution RxNorm: 651526 Milliliter 03/31/2016 No longer Active cyanocobalamin (vit B-12) 1,000 mcg/mL injection solution RxNorm: 052022 1Milliliter 03/15/2016 No longer Active cyanocobalamin (vit B-12) 1,000 mcg/mL injection solution RxNorm: 533925 Milliliter 02/25/2016 No longer Active cyanocobalamin (vit B-12) 1,000 mcg/mL injection solution RxNorm: 431580 1Milliliter 02/02/2016 No longer Active cyanocobalamin (vit B-12) 1,000 mcg/mL injection solution RxNorm: 174004 Milliliter 01/18/2016 No longer Active cyanocobalamin (vit B-12) 1,000 mcg/mL injection solution RxNorm: 076245 Milliliter 12/29/2015 No longer Active cyanocobalamin (vit B-12) 1,000 mcg/mL injection solution RxNorm: 996775 Milliliter 12/08/2015 No longer Active cyanocobalamin (vit B-12) 1,000 mcg/mL injection solution RxNorm: 165487 Milliliter 11/23/2015 No longer Active cyanocobalamin (vit B-12) 1,000 mcg/mL injection solution RxNorm: 531696 Milliliter 11/11/2015 No longer Active cyanocobalamin (vit B-12) 1,000 mcg/mL injection solution RxNorm: 119690 1Milliliter 10/29/2015 No longer Active cyanocobalamin (vit B-12) 1,000 mcg/mL injection solution RxNorm: 966749 1Milliliter 10/12/2015 No longer Active cyanocobalamin (vit B-12) 1,000 mcg/mL injection solution RxNorm: 923184 1Milliliter 09/29/2015 No longer Active cyanocobalamin (vit B-12) 1,000 mcg/mL injection solution RxNorm: 517296 1Milliliter 09/17/2015 No longer Active cyanocobalamin (vit B-12) 1,000 mcg/mL injection solution RxNorm: 615153 1Milliliter 09/03/2015 No longer Active cyanocobalamin (vit B-12) 1,000 mcg/mL injection solution RxNorm: 040594 Milliliter 08/17/2015 No longer Active cyanocobalamin (vit B-12) 1,000 mcg/mL injection solution RxNorm: 462866 Milliliter 08/06/2015 No longer Active cyanocobalamin (vit B-12) 1,000 mcg/mL injection solution RxNorm: 173786 Milliliter 07/22/2015 No longer Active cyanocobalamin (vit B-12) 1,000 mcg/mL injection solution RxNorm: 590148 Milliliter 07/08/2015 No longer Active cyanocobalamin (vit B-12) 1,000 mcg/mL injection solution RxNorm: 335870 Milliliter 06/23/2015 No longer Active cyanocobalamin (vit B-12) 1,000 mcg/mL injection solution RxNorm: 310929 1Milliliter 06/08/2015 No longer Active cyanocobalamin (vit B-12) 1,000 mcg/mL injection solution RxNorm: 849508 Milliliter 05/27/2015 No longer Active cyanocobalamin (vit B-12) 1,000 mcg/mL injection solution RxNorm: 755582 1Milliliter 05/12/2015 No longer Active cyanocobalamin (vit B-12) 1,000 mcg/mL injection kit RxNorm: 895980 kit 04/30/2015 No longer Active cyanocobalamin (vit B-12) 1,000 mcg/mL injection solution RxNorm: 007315 Milliliter 04/16/2015 No longer Active cyanocobalamin (vit B-12) 1,000 mcg/mL injection solution RxNorm: 463397 Milliliter 04/02/2015 No longer Active cyanocobalamin (vit B-12) 1,000 mcg/mL injection solution RxNorm: 124334 Milliliter 03/18/2015 No longer Active cyanocobalamin (vit B-12) 1,000 mcg/mL injection solution RxNorm: 401209 Milliliter 03/03/2015 No longer Active cyanocobalamin (vit B-12) 1,000 mcg/mL injection solution RxNorm: 251490 Milliliter 02/18/2015 No longer Active cyanocobalamin (vit B-12) 1,000 mcg/mL injection solution RxNorm: 634635 Milliliter 02/04/2015 No longer Active cyanocobalamin (vit B-12) 1,000 mcg/mL injection solution RxNorm: 731013 Milliliter 01/22/2015 No longer Active cyanocobalamin (vit B-12) 1,000 mcg/mL injection solution RxNorm: 967811 Milliliter 01/08/2015 No longer Active cyanocobalamin (vit B-12) 1,000 mcg/mL injection solution RxNorm: 288666 Milliliter 12/25/2014 No longer Active cyanocobalamin (vit B-12) 1,000 mcg/mL injection solution RxNorm: 832669 Milliliter 12/10/2014 No longer Active cyanocobalamin (vit B-12) 1,000 mcg/mL injection solution RxNorm: 083790 Milliliter 11/26/2014 No longer Active cyanocobalamin (vit B-12) 1,000 mcg/mL injection kit RxNorm: 201136 Milliliter 11/12/2014 No longer Active cyanocobalamin (vit B-12) 1,000 mcg/mL injection solution RxNorm: 655343 Milliliter 10/28/2014 No longer Active Immunizations Vaccine [...] (3rd IS) 3.20 uIU/mL 02/26/2018 Free T4 Moo708 FREE T4 0.99 ng/dL 02/26/2018 Cbc With [...] 90.1 fl 02/26/2018 Cbc With Differential Ord2 [place]% 10.3 % 02/26/2018 Cbc With Differential Ord2 [...] 1.80 K/ul 02/26/2018 Cbc With Differential Ord2 [place] ABS# 0.7 K/ul 02/26/2018 Cbc With Differential Ord2 Eos ABS# 0.2 K/ul 02/26/2018 Cbc With Differential Ord2 Baso ABS# 0.0 K/ul 02/26/2018 B12 Jqu584 B12 889.00 pg/ml 02/26/2018 Digoxin Ord9 DIGOXIN 0.7 NG/ML 11/23/2017 Comp Metabolic Qne642 NA 142 mEq/L 11/23/2017 Comp Metabolic Mde484 K 4.9 mEq/L 11/23/2017 Comp Metabolic Hkb722 CL 112 mEq/L 11/23/2017 Comp Metabolic Vhy613 CO2 18.0 mEq/L 11/23/2017 Comp Metabolic Azr559 ANION GAP 17 11/23/2017 Comp Metabolic Hes407 GLUCOSE 123 mg/dL 11/23/2017 Comp Metabolic Dfd612 Creat 1.0 mg/dL 11/23/2017 Comp Metabolic Xcs687 eGFR 59 ml/min/1.73m2 11/23/2017 Comp Metabolic Mmh618 BUN 24 mg/dL 11/23/2017 Comp Metabolic Mpc226 B/C Ratio 25.0 Ratio 11/23/2017 Comp Metabolic Rso594 CALCIUM 9.4 mg/dL 11/23/2017 Comp Metabolic Aoo971 ALK PHOS 56 U/L 11/23/2017 Comp Metabolic Tjz888 AST(SGOT) 17 U/L 11/23/2017 Comp Metabolic Dpm386 ALT(SGPT) 16 U/L 11/23/2017 Comp Metabolic Vtu562 BILI T 0.7 mg/dL 11/23/2017 Comp Metabolic Esh203 ALBUMIN 3.8 g/dL 11/23/2017 Comp Metabolic Rxv488 TPRO 6.2 g/dL 11/23/2017 Comp Metabolic Jhg242 GLOB 2.4 g/dL 11/23/2017 Comp Metabolic Oqd625 A/G Ratio 1.6 Ratio 11/23/2017 Comp Metabolic Jqy257 Osmo 289 mOsmo 11/23/2017 Free T4 Zpn551 FREE T4 1.04 ng/dL 11/23/2017 %Hba1C Sfg770 % HbA1c 59332- 6 6.4 % 11/23/2017 %Hba1C Ibp811 Gluc Ave 137 mg/dL 11/23/2017 Lipid Ord30 CHOL 179 mg/dL 11/23/2017 Lipid Ord30 HDL 51.0 mg/dl 11/23/2017 Lipid Ord30 TRIG 134 mg/dL 11/23/2017 Lipid Ord30 LDL 101 mg/dL 11/23/2017 Lipid Ord30 C/HDL 3.5 Ratio 11/23/2017 Tsh Ord6 TSH (3rd IS) 1.00 uIU/mL 11/23/2017 Microalbumin Boy901 MicroAlb <0.7 mg/dL 11/23/2017 Comp Metabolic Oys883 NA 141 mEq/L 01/23/2017 Comp Metabolic Ujx802 K 4.5 mEq/L 01/23/2017 Comp Metabolic Ybc786 CL 107 mEq/L 01/23/2017 Comp Metabolic Kim778 CO2 21.0 mEq/L 01/23/2017 Comp Metabolic Cec129 ANION GAP 18 01/23/2017 Comp Metabolic Cgl014 GLUCOSE 138 mg/dL 01/23/2017 Comp Metabolic Zqd682 Creat 1.0 mg/dL 01/23/2017 Comp Metabolic Bof138 eGFR 56 ml/min/1.73m2 01/23/2017 Comp Metabolic Ozs514 BUN 26 mg/dL 01/23/2017 Comp Metabolic Kwn604 B/C Ratio 25.7 Ratio 01/23/2017 Comp Metabolic Hcj400 CALCIUM 9.0 mg/dL 01/23/2017 Comp Metabolic Xdj516 ALK PHOS 37 U/L 01/23/2017 Comp Metabolic Cxx292 AST(SGOT) 20 U/L 01/23/2017 Comp Metabolic Bsd951 ALT(SGPT) 25 U/L 01/23/2017 Comp Metabolic Hlo926 BILI T 0.9 mg/dL 01/23/2017 Comp Metabolic Owz785 ALBUMIN 3.8 g/dL 01/23/2017 Comp Metabolic Tss361 TPRO 6.5 g/dL 01/23/2017 Comp Metabolic Byg311 GLOB 2.7 g/dL 01/23/2017 Comp Metabolic Skm173 A/G Ratio 1.4 Ratio 01/23/2017 Comp Metabolic Gcl513 Osmo 288 mOsmo 01/23/2017 Free T4 Gji489 FREE T4 1.05 ng/dL 01/23/2017 %Hba1C Xqu523 % HbA1c 47308- 6 6.1 % 01/23/2017 %Hba1C Rjk598 Gluc Ave 128 mg/dL 01/23/2017 Tsh Ord6 hTSH II 1.68 uIU/mL 01/23/2017 Culture Urine [id number] URINE CULTURE SEE NOTES 11/10/2016 Culture Urine [id number] Continued Results 11/10/2016 Urine Culture Ucult Complete [...] Ord15 CALCIUM 9.3 mg/dL 09/29/2016 Free T4 Yar738 FREE T4 0.99 ng/dL 09/07/2016 Cbc With [...] 91.7 fl 09/07/2016 Cbc With Differential Ord2 [place]% 9.8 % 09/07/2016 Cbc With Differential Ord2 [...] 1.75 K/ul 09/07/2016 Cbc With Differential Ord2 [place] ABS# 0.6 K/ul 09/07/2016 Cbc With Differential Ord2 Eos ABS# 0.1 K/ul 09/07/2016 Cbc With Differential Ord2 Baso ABS# 0.0 K/ul 09/07/2016 Tsh Ord6 hTSH II 1.41 uIU/mL 09/07/2016 Culture Urine [id number] URINE CULTURE SEE NOTES 06/27/2016 Lipid Ord30 CHOL 196 mg/dL 06/22/2016 Lipid Ord30 HDL 63.0 mg/dl 06/22/2016 Lipid Ord30 TRIG 154 mg/dL 06/22/2016 Lipid Ord30 LDL 102 mg/dL 06/22/2016 Lipid Ord30 C/HDL 3.1 Ratio 06/22/2016 Hepatic Ybl825 ALBUMIN 4.2 g/dL 06/22/2016 Hepatic Htr417 TPRO 7.0 g/dL 06/22/2016 Hepatic Gfh153 GLOB 2.8 g/dL 06/22/2016 Hepatic Acm764 A/G Ratio 1.5 Ratio 06/22/2016 Hepatic Lsi266 ALK PHOS 54 U/L 06/22/2016 Hepatic Vjl647 ALT(SGPT) 30 U/L 06/22/2016 Hepatic Fhm445 AST(SGOT) 24 U/L 06/22/2016 Hepatic Eyr233 BILI T 1.1 mg/dL 06/22/2016 Hepatic Oyn356 BILI D 0.2 mg/dL 06/22/2016 Hepatic Vgb467 BILI I 0.9 mg/dL 06/22/2016 Comp Metabolic Zmc420 NA 139 mEq/L 06/14/2016 Comp Metabolic Rxd034 K 4.6 mEq/L 06/14/2016 Comp Metabolic Are594 CL 108 mEq/L 06/14/2016 Comp Metabolic Aib038 CO2 22.0 mEq/L 06/14/2016 Comp Metabolic Uyy359 ANION GAP 14 06/14/2016 Comp Metabolic Njh985 GLUCOSE 114 mg/dL 06/14/2016 Comp Metabolic Bem307 Creat 1.2 mg/dL 06/14/2016 Comp Metabolic Zju518 eGFR 48 ml/min/1.73m2 06/14/2016 Comp Metabolic Bxk842 BUN 24 mg/dL 06/14/2016 Comp Metabolic Gcx700 B/C Ratio 20.9 Ratio 06/14/2016 Comp Metabolic Zxn675 CALCIUM 9.9 mg/dL 06/14/2016 Comp Metabolic Cww591 ALK PHOS 47 U/L 06/14/2016 Comp Metabolic Yib473 AST(SGOT) 28 U/L 06/14/2016 Comp Metabolic Dzu415 ALT(SGPT) 32 U/L 06/14/2016 Comp Metabolic Asu509 BILI T 0.9 mg/dL 06/14/2016 Comp Metabolic Vps535 ALBUMIN 4.1 g/dL 06/14/2016 Comp Metabolic Zmr819 TPRO 6.9 g/dL 06/14/2016 Comp Metabolic Eaq342 GLOB 2.8 g/dL 06/14/2016 Comp Metabolic Vvt152 A/G Ratio 1.5 Ratio 06/14/2016 Comp Metabolic Oze966 Osmo 282 mOsmo 06/14/2016 Tsh Ord6 hTSH II 1.26 uIU/mL 06/14/2016 Free T4 Mfw518 FREE T4 1.09 ng/dL 06/14/2016 Tsh Ord6 hTSH II 0.28 uIU/mL 02/02/2016 Digoxin Ord9 DIGOXIN 0.7 NG/ML 02/02/2016 Free T4 Ywt264 FREE T4 1.23 ng/dL 02/02/2016 Hepatic Pue345 ALBUMIN 4.0 g/dL 02/02/2016 Hepatic Pmg171 TPRO 7.0 g/dL 02/02/2016 Hepatic Oko148 GLOB 3.0 g/dL 02/02/2016 Hepatic Exd000 A/G Ratio 1.3 Ratio 02/02/2016 Hepatic Yzo601 ALK PHOS 57 U/L 02/02/2016 Hepatic Ugf734 ALT(SGPT) 62 U/L 02/02/2016 Hepatic Ocr552 AST(SGOT) 54 U/L 02/02/2016 Hepatic Mlt623 BILI T 0.8 mg/dL 02/02/2016 Hepatic Raz128 BILI D 0.2 mg/dL 02/02/2016 Hepatic Yml043 BILI I 0.6 mg/dL 02/02/2016 Urine Culture Ucult Preliminary No Growth Day 1 11/25/2015 Urine Culture Ucult Complete No Growth Day 2 11/25/2015 Hepatic Sqe021 ALBUMIN 3.9 g/dL 11/11/2015 Hepatic Ijs463 TPRO 7.0 g/dL 11/11/2015 Hepatic Yec879 GLOB 3.1 g/dL 11/11/2015 Hepatic Gsj032 A/G Ratio 1.3 Ratio 11/11/2015 Hepatic Ppd590 ALK PHOS 63 U/L 11/11/2015 Hepatic Bhq673 ALT(SGPT) 107 U/L 11/11/2015 Hepatic Kxy478 AST(SGOT) 101 U/L 11/11/2015 Hepatic Gio820 BILI T 0.6 mg/dL 11/11/2015 Hepatic Ipd410 BILI D 0.1 mg/dL 11/11/2015 Hepatic Yqb455 BILI I 0.5 mg/dL 11/11/2015 Comp Metabolic Cvm357 NA 138 mEq/L 10/29/2015 Comp Metabolic Fgv381 K 5.0 mEq/L 10/29/2015 Comp Metabolic Ols771 CL 105 mEq/L 10/29/2015 Comp Metabolic Age447 CO2 23.0 mEq/L 10/29/2015 Comp Metabolic Bdi589 ANION GAP 15 10/29/2015 Comp Metabolic Ejx322 GLUCOSE 105 mg/dL 10/29/2015 Comp Metabolic Qkf955 Creat 1.0 mg/dL 10/29/2015 Comp Metabolic Qgk649 eGFR 55 ml/min/1.73m2 10/29/2015 Comp Metabolic Ybq244 BUN 20 mg/dL 10/29/2015 Comp Metabolic Bti561 B/C Ratio 19.4 Ratio 10/29/2015 Comp Metabolic Ihg130 CALCIUM 8.8 mg/dL 10/29/2015 Comp Metabolic Fhw233 ALK PHOS 56 U/L 10/29/2015 Comp Metabolic Xfu318 AST(SGOT) 66 U/L 10/29/2015 Comp Metabolic Cjk011 ALT(SGPT) 78 U/L 10/29/2015 Comp Metabolic Axd158 BILI T 0.7 mg/dL 10/29/2015 Comp Metabolic Sii888 ALBUMIN 3.6 g/dL 10/29/2015 Comp Metabolic Zyn311 TPRO 6.6 g/dL 10/29/2015 Comp Metabolic Bmi949 GLOB 3.0 g/dL 10/29/2015 Comp Metabolic Xcn042 A/G Ratio 1.2 Ratio 10/29/2015 Comp Metabolic Jck130 Osmo 279 mOsmo 10/29/2015 Comp Metabolic Nfz551 NA 136 mEq/L 09/03/2015 Comp Metabolic Flv867 K 4.4 mEq/L 09/03/2015 Comp Metabolic Kda717 CL 103 mEq/L 09/03/2015 Comp Metabolic Azt206 CO2 24.0 mEq/L 09/03/2015 Comp Metabolic Vwf334 ANION GAP 13 09/03/2015 Comp Metabolic Pfj621 GLUCOSE 87 mg/dL 09/03/2015 Comp Metabolic Dsk979 Creat 1.1 mg/dL 09/03/2015 Comp Metabolic Lbz775 eGFR 53 ml/min/1.73m2 09/03/2015 Comp Metabolic Krj479 BUN 17 mg/dL 09/03/2015 Comp Metabolic Wrl879 B/C Ratio 16.2 Ratio 09/03/2015 Comp Metabolic Kdx214 CALCIUM 9.0 mg/dL 09/03/2015 Comp Metabolic Gbn658 ALK PHOS 55 U/L 09/03/2015 Comp Metabolic Cpk384 AST(SGOT) 83 U/L 09/03/2015 Comp Metabolic Veq455 ALT(SGPT) 126 U/L 09/03/2015 Comp Metabolic Dqs073 BILI T 0.9 mg/dL 09/03/2015 Comp Metabolic Rdj639 ALBUMIN 3.9 g/dL 09/03/2015 Comp Metabolic Qzg750 TPRO 6.8 g/dL 09/03/2015 Comp Metabolic Koi011 GLOB 2.9 g/dL 09/03/2015 Comp Metabolic Omk353 A/G Ratio 1.4 Ratio 09/03/2015 Comp Metabolic Bzp225 Osmo 273 mOsmo 09/03/2015 Total T3 Ord42 TT3 0.6 ng/ml 07/09/2015 Tsh Ord6 hTSH II 1.62 uIU/mL 07/09/2015 Total T3 Ord42 TT3 0.5 ng/ml 04/02/2015 Free T4 Ymv909 FREE T4 1.23 ng/dL 04/02/2015 Tsh Ord6 [...] Procedure Codes Date THER/PROPH/DIAG INJ SC/IM CPT-4: 25999 04/26/2018 VITAMIN B12 INJECTION CPT- 4: J3420 04/26/2018 THER/PROPH/DIAG INJ SC/IM CPT-4: 49325 04/12/2018 THER/PROPH/DIAG INJ SC/IM CPT-4: 72898 03/30/2018 THER/PROPH/DIAG INJ SC/IM CPT-4: 70132 03/16/2018 VITAMIN B12 INJECTION CPT- 4: J3420 03/16/2018 ADMIN INFLUENZA VIRUS VAC CPT-4: G0008 03/16/2018 FLU VACC PRSV FREE INC ANTIG Formatting Model/CDA Sections, Assigned to/Nga Ojeda CPT-4: 42413Irkktex 03/16/2018 THER/PROPH/DIAG INJ SC/IM CPT-4: 36873 03/02/2018 THER/PROPH/DIAG INJ SC/IM CPT-4: 88112 02/08/2018 THER/PROPH/DIAG INJ SC/IM CPT-4: 95843 01/24/2018 THER/PROPH/DIAG INJ SC/IM CPT-4: 07669 01/10/2018 THER/PROPH/DIAG INJ SC/IM CPT-4: 85812 12/27/2017 VITAMIN B12 INJECTION CPT- 4: J3420 12/27/2017 THER/PROPH/DIAG INJ SC/IM CPT-4: 30873 12/12/2017 THER/PROPH/DIAG INJ SC/IM CPT-4: 83230 12/01/2017 VITAMIN B12 INJECTION CPT- 4: J3420 12/01/2017 THER/PROPH/DIAG INJ SC/IM CPT-4: 72601 11/17/2017 THER/PROPH/DIAG INJ SC/IM CPT-4: 78824 11/02/2017 THER/PROPH/DIAG INJ SC/IM CPT-4: 11447 10/20/2017 THER/PROPH/DIAG INJ SC/IM CPT-4: 54206 10/06/2017 THER/PROPH/DIAG INJ SC/IM CPT-4: 20904 09/21/2017 TRIAMCINOLONE ACET INJ NOS CPT-4: J3301 09/15/2017 THER/PROPH/DIAG INJ SC/IM CPT-4: 14783 09/07/2017 THER/PROPH/DIAG INJ SC/IM CPT-4: 23909 08/24/2017 THER/PROPH/DIAG INJ SC/IM CPT-4: 77663 07/06/2017 THER/PROPH/DIAG INJ SC/IM CPT-4: 64239 06/20/2017 TRIAMCINOLONE ACET INJ NOS CPT-4: J3301 06/20/2017 PPPS, SUBSEQ VISIT CPT- 4: G0439 06/05/2017 THER/PROPH/DIAG INJ SC/IM CPT-4: 29771 06/05/2017 THER/PROPH/DIAG INJ SC/IM CPT-4: 61747 05/25/2017 VITAMIN B12 INJECTION CPT- 4: J3420 05/25/2017 THER/PROPH/DIAG INJ SC/IM CPT-4: 42035 05/16/2017 THER/PROPH/DIAG INJ SC/IM CPT-4: 84043 05/01/2017 THER/PROPH/DIAG INJ SC/IM CPT-4: 83675 04/18/2017 THER/PROPH/DIAG INJ SC/IM CPT-4: 05625 04/06/2017 ADMIN INFLUENZA VIRUS VAC CPT-4: G0008 03/22/2017 FLU VACC PRSV FREE INC ANTIG CPT-4: 04737 03/22/2017 THER/PROPH/DIAG INJ SC/IM CPT-4: 26863 03/09/2017 THER/PROPH/DIAG INJ SC/IM CPT-4: 90099 02/23/2017 THER/PROPH/DIAG INJ SC/IM CPT-4: 25167 02/09/2017 THER/PROPH/DIAG INJ SC/IM CPT-4: 95127 01/23/2017 THER/PROPH/DIAG INJ SC/IM CPT-4: 30109 01/10/2017 THER/PROPH/DIAG INJ SC/IM CPT-4: 47632 12/28/2016 THER/PROPH/DIAG INJ SC/IM CPT-4: 70120 12/14/2016 THER/PROPH/DIAG INJ SC/IM CPT-4: 98013 11/24/2016 URINALYSIS NONAUTO W/O SCOPE CPT-4: 69473 11/07/2016 THER/PROPH/DIAG INJ SC/IM CPT-4: 47162 11/07/2016 THER/PROPH/DIAG INJ SC/IM CPT-4: 27168 10/24/2016 THER/PROPH/DIAG INJ SC/IM CPT-4: 01848 09/29/2016 THER/PROPH/DIAG INJ SC/IM CPT-4: 21816 08/29/2016 THER/PROPH/DIAG INJ SC/IM CPT-4: 81841 08/04/2016 THER/PROPH/DIAG INJ SC/IM CPT-4: 04949 07/21/2016 THER/PROPH/DIAG INJ SC/IM CPT-4: 04726 07/05/2016 THER/PROPH/DIAG INJ SC/IM CPT-4: 01209 06/22/2016 URINALYSIS NONAUTO W/O SCOPE CPT-4: 31044 06/22/2016 THER/PROPH/DIAG INJ SC/IM CPT-4: 60531 06/09/2016 PPPS, SUBSEQ VISIT CPT- 4: G0439 05/30/2016 ADMIN PNEUMOCOCCAL VACCINE SNOMED CT: 12631839 CPT-4: G0009 05/25/2016 Pneumococcal Polysaccharide Vaccine, 23-Valent, Ad CPT-4: 58790 05/25/2016 THER/PROPH/DIAG INJ SC/IM CPT-4: 62148 05/25/2016 THER/PROPH/DIAG INJ SC/IM CPT-4: 70325 05/10/2016 TRIAMCINOLONE ACET INJ NOS CPT-4: J3301 04/26/2016 VITAMIN B12 INJECTION CPT- 4: J3420 04/26/2016 THER/PROPH/DIAG INJ SC/IM CPT-4: 06347 04/11/2016 THER/PROPH/DIAG INJ SC/IM CPT-4: 54981 03/31/2016 ADMIN INFLUENZA VIRUS VAC CPT-4: G0008 03/15/2016 FLU VACC 4 STEPHANIE [address] YRS PLUS IM SNOMED CT: 69787456 CPT-4: 52295 03/15/2016 THER/PROPH/DIAG INJ SC/IM CPT-4: 06462 02/25/2016 THER/PROPH/DIAG INJ SC/IM CPT-4: 56849 02/02/2016 THER/PROPH/DIAG INJ SC/IM CPT-4: 82789 01/18/2016 VITAMIN B12 INJECTION CPT- 4: J3420 12/29/2015 THER/PROPH/DIAG INJ SC/IM CPT-4: 53982 12/29/2015 THER/PROPH/DIAG INJ SC/IM CPT-4: 29517 12/08/2015 THER/PROPH/DIAG INJ SC/IM CPT-4: 03175 11/23/2015 URINALYSIS NONAUTO W/O SCOPE CPT-4: 71055 11/23/2015 THER/PROPH/DIAG INJ SC/IM CPT-4: 74241 11/11/2015 THER/PROPH/DIAG INJ SC/IM CPT-4: 54460 10/29/2015 THER/PROPH/DIAG INJ SC/IM CPT-4: 75309 10/12/2015 VITAMIN B12 INJECTION CPT- 4: J3420 10/12/2015 THER/PROPH/DIAG INJ SC/IM CPT-4: 70769 09/29/2015 THER/PROPH/DIAG INJ SC/IM CPT-4: 60789 09/17/2015 THER/PROPH/DIAG INJ SC/IM CPT-4: 40219 09/03/2015 THER/PROPH/DIAG INJ SC/IM CPT-4: 34015 08/17/2015 THER/PROPH/DIAG INJ SC/IM CPT-4: 86639 08/06/2015 THER/PROPH/DIAG INJ SC/IM CPT-4: 45914 07/22/2015 THER/PROPH/DIAG INJ SC/IM CPT-4: 28122 07/08/2015 THER/PROPH/DIAG INJ SC/IM CPT-4: 95693 06/23/2015 THER/PROPH/DIAG INJ SC/IM CPT-4: 76610 06/08/2015 THER/PROPH/DIAG INJ SC/IM CPT-4: 36257 05/27/2015 DESTRUCT PREMALG LESION CPT-4: 42580 05/19/2015 DESTRUCT PREMALG LES 2-14 CPT-4: 84619 05/19/2015 THER/PROPH/DIAG INJ SC/IM CPT-4: 89155 05/12/2015 VITAMIN B12 INJECTION CPT- 4: J3420 05/12/2015 THER/PROPH/DIAG INJ SC/IM CPT-4: 14256 04/30/2015 VITAMIN B12 INJECTION CPT- 4: J3420 04/30/2015 THER/PROPH/DIAG INJ SC/IM CPT-4: 61237 04/16/2015 THER/PROPH/DIAG INJ SC/IM CPT-4: 62684 04/02/2015 VITAMIN B12 INJECTION CPT- 4: J3420 04/02/2015 THER/PROPH/DIAG INJ SC/IM CPT-4: 00949 03/18/2015 THER/PROPH/DIAG INJ SC/IM CPT-4: 05962 03/03/2015 THER/PROPH/DIAG INJ SC/IM CPT-4: 79430 02/18/2015 THER/PROPH/DIAG INJ SC/IM CPT-4: 00415 02/04/2015 VITAMIN B12 INJECTION CPT- 4: J3420 02/04/2015 THER/PROPH/DIAG INJ SC/IM CPT-4: 88759 01/22/2015 THER/PROPH/DIAG INJ SC/IM CPT-4: 50277 01/08/2015 VITAMIN B12 INJECTION CPT- 4: J3420 01/08/2015 THER/PROPH/DIAG INJ SC/IM CPT-4: 73505 12/25/2014 VITAMIN B12 INJECTION CPT- 4: J3420 12/25/2014 THER/PROPH/DIAG INJ SC/IM CPT-4: 58236 12/10/2014 VITAMIN B12 INJECTION CPT- 4: J3420 12/10/2014 THER/PROPH/DIAG INJ SC/IM CPT-4: 23036 11/26/2014 VITAMIN B12 INJECTION CPT- 4: J3420 11/26/2014 THER/PROPH/DIAG INJ SC/IM CPT-4: 04698 11/12/2014 VITAMIN B12 INJECTION CPT- 4: J3420 11/12/2014 THER/PROPH/DIAG INJ SC/IM CPT-4: 58843 10/28/2014 Vital Signs Date Vital 04/26/2018 Height: 5'6" 02/26/2018 Blood Pressure 1: 130/72 Code: 8480-6 BMI: 27.9 Code: 75712-4 Heart Rate 1: 72 bpm Height: 5'6" SpO2: 93% Weight: 173 lbs 12/12/2017 Blood Pressure 1: 126/74 Code: 8480-6 BMI: 27.4 Code: 74711-5 Heart Rate 1: 83 bpm Height: 5'6" SpO2: 98% Weight: 170 lbs 12/04/2017 Blood Pressure 1: 104/68 Code: 8480-6 BMI: 28.2 Code: 06628-2 Heart Rate 1: 85 bpm Height: 5'6" SpO2: 95% Weight: 175 lbs 11/20/2017 Blood Pressure 1: 130/68 Code: 8480-6 BMI: 28.4 Code: 29391-1 Heart Rate 1: 80 bpm Height: 5'6" SpO2: 99% Weight: 176 lbs 11/02/2017 Height: 5'6" 09/15/2017 Blood Pressure 1: 134/74 Code: 8480-6 BMI: 28.4 Code: 57572-3 Heart Rate 1: 88 bpm Height: 5'6" SpO2: 98% Weight: 176 lbs 09/07/2017 Blood Pressure 1: 124/64 Code: 8480-6 Heart Rate 1: 90 bpm Height: SpO2: 97% Weight: 08/30/2017 Blood Pressure 1: 140/76 Code: 8480-6 BMI: 28.4 Code: 92315-6 Heart Rate 1: 90 bpm Height: 5'6" SpO2: 94% Weight: 176 lbs 07/06/2017 Blood Pressure 1: 132/66 Code: 8480-6 BMI: 29.4 Code: 27545-4 Heart Rate 1: 85 bpm Height: 5'6" SpO2: 97% Weight: 182 lbs 06/20/2017 Blood Pressure 1: 134/86 Code: 8480-6 Heart Rate 1: 90 bpm Height: SpO2: 98% Weight: 06/05/2017 BMI: 29.1 Code: 21774-0 Height: 5'6" Weight: 180 lbs 05/25/2017 Blood Pressure 1: 126/76 Code: 8480-6 BMI: 29.1 Code: 46027-3 Heart Rate 1: 77 bpm Height: 5'6" SpO2: 97% Weight: 180 lbs 03/23/2017 Blood Pressure 1: 142/84 Code: 8480-6 BMI: 29.1 Code: 58454-9 Heart Rate 1: 91 bpm Height: 5'6" SpO2: 97% Weight: 180 lbs 01/23/2017 Blood Pressure 1: 150/90 Code: 8480-6 BMI: 29.9 Code: 29456-1 Heart Rate 1: 81 bpm Height: 5'6" SpO2: 97% Weight: 185 lbs 11/02/2016 Blood Pressure 1: 148/78 Code: 8480-6 BMI: 29.7 Code: 17818-0 Heart Rate 1: 87 bpm Height: 5'6" SpO2: 97% Weight: 184 lbs 09/29/2016 Blood Pressure 1: 128/78 Code: 8480-6 BMI: 29.7 Code: 06615-9 Heart Rate 1: 78 bpm Height: 5'6" SpO2: 98% Weight: 184 lbs 07/26/2016 Blood Pressure 1: 138/72 Code: 8480-6 BMI: 30.0 Code: 28187-8 Heart Rate 1: 85 bpm Height: 5'6" SpO2: 97% Weight: 186 lbs 05/30/2016 Blood Pressure 1: 132/76 Code: 8480-6 BMI: 30.0 Code: 83920-8 Heart Rate 1: 80 bpm Height: 5'6" SpO2: 98% Waist Measure (cm): 99 cm Weight: 186 lbs 05/25/2016 Blood Pressure 1: 132/76 Code: 8480-6 BMI: 30.0 Code: 74986-1 Heart Rate 1: 80 bpm Height: 5'6" SpO2: 96% Weight: 186 lbs 02/25/2016 Blood Pressure 1: 110/64 Code: 8480-6 Heart Rate 1: 82 bpm Height: SpO2: 96% Weight: 01/25/2016 Blood Pressure 1: 118/70 Code: 8480-6 BMI: 30.0 Code: 64046-8 Heart Rate 1: 78 bpm Height: 5'6" SpO2: 97% Weight: 186 lbs 11/11/2015 Blood Pressure 1: 128/82 Code: 8480-6 BMI: 29.2 Code: 60081-4 Heart Rate 1: 86 bpm Height: 5'6" SpO2: 96% Temperature: 36.4 (C) / 97.6 (F) Weight: 181 lbs 10/12/2015 Blood Pressure 1: 118/70 Code: 8480-6 BMI: 29.2 Code: 10882-0 Heart Rate 1: 81 bpm Height: 5'6" SpO2: 95% Weight: 181 lbs 09/03/2015 Blood Pressure 1: 138/78 Code: 8480-6 BMI: 29.9 Code: 97784-5 Heart Rate 1: 88 bpm Height: 5'6" SpO2: 97% Weight: 185 lbs 05/19/2015 Blood Pressure 1: 146/78 Code: 8480-6 BMI: 30.0 Code: 83748-4 Heart Rate 1: 66 bpm Height: 5'6" SpO2: 97% Weight: 186 lbs 05/12/2015 Blood Pressure 1: 120/70 Code: 8480-6 BMI: 29.9 Code: 43930-4 Heart Rate 1: 89 bpm Height: 5'6" SpO2: 95% Weight: 185 lbs 01/13/2015 Blood Pressure 1: 140/90 Code: 8480-6 BMI: 30.3 Code: 82849-5 Heart Rate 1: 84 bpm Height: 5'6" SpO2: 95% Weight: 188 lbs 12/16/2014 Blood Pressure 1: 140/82 Code: 8480-6 BMI: 29.5 Code: 89223-4 Heart Rate 1: 86 bpm Height: 5'6" [...] data Encounters Encounter Performer Location Codes Date 23906 EST. PATIENT, LEVEL III Diagnosis: Pain in left shoulder[ICD10: M25.512] Diagnosis: Pain in right shoulder[ICD10: M25.511] Yarely Vega MD, [facility] CPT-4: 71475 02/26/2018 ([id number]) 49411 EST. PATIENT, LEVEL III Diagnosis: Nausea[ICD10: R11.0] Diagnosis: Cough[ICD10: R05] Diagnosis: 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 factor deficiency[ICD10: D51.0] Janet Vega MD, [facility] CPT-4: 90042 12/12/2017 ([id number]) 80038 EST. PATIENT, LEVEL IV Diagnosis: Acute bronchitis due to Hemophilus influenzae[ICD10: J20.1] Diagnosis: Cough[ICD10: R05] Yarely Vega MD, [facility] CPT-4: 67927 12/04/2017 ([id number]) 50309 EST. PATIENT, LEVEL IV Diagnosis: Essential (primary) hypertension[ICD10: I10] Diagnosis: Cough[ICD10: R05] Diagnosis: Chronic atrial fibrillation[ICD10: I48.2] Yarely Vega MD, [facility] CPT-4: 80886 11/20/[id number]) 13671 EST. PATIENT, LEVEL III Diagnosis: Cough[ICD10: R05] Diagnosis: Acute upper respiratory infection, unspecified[ICD10: J06.9] Janet Vega MD, [facility] CPT-4: 31252 09/15/2017 72216 EST. PATIENT, LEVEL III Diagnosis: Laceration without foreign body of right forearm, initial encounter[ICD10: S51.811A] Diagnosis: Other vitamin B12 deficiency anemias[ICD10: D51.8] Brianna Vega MD, [facility] CPT-4: 10405 09/07/2017 ([id number]) 94184 EST. PATIENT, LEVEL IV Diagnosis: Chronic atrial fibrillation[ICD10: I48.2] Diagnosis: Other allergic rhinitis[ICD10: J30.89] Diagnosis: Encounter for therapeutic drug level monitoring[ICD10: Z51.81] Yarely Vega MD, [facility] CPT-4: 41816 08/30/2017 ([id number]) 82236 EST. PATIENT, LEVEL IV Diagnosis: Atrophy of thyroid (acquired)[ICD10: E03.4] Diagnosis: Cough[ICD10: R05] Diagnosis: Laceration without foreign body of left forearm, initial encounter[ICD10: S51.812A] Diagnosis: Candidiasis of skin and nail[ICD10: B37.2] Diagnosis: Other vitamin B12 deficiency anemias[ICD10: D51.8] Diagnosis: Slow transit constipation[ICD10: K59.01] Yarely Vega MD, [facility] CPT-4: 80039 07/06/2017 [id number] EST. PATIENT, LEVEL III Diagnosis: Other vitamin B12 deficiency anemias[ICD10: D51.8] Diagnosis: Acute laryngopharyngitis[ICD10: J06.0] Diagnosis: Other allergic rhinitis[ICD10: J30.89] Brianna Vega MD, [facility] CPT- 4: 58838 06/20/2017 ([id number]) 70516 EST. PATIENT, LEVEL IV Diagnosis: Essential (primary) hypertension[ICD10: I10] Diagnosis: Chronic atrial fibrillation[ICD10: I48.2] Diagnosis: Atrophy of thyroid (acquired)[ICD10: E03.4] Diagnosis: 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 factor deficiency[ICD10: D51.0] Yarely Vega MD, [facility] CPT-4: 05764 05/25/2017 ([id number]) 00057 EST. 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 PATIENT, LEVEL IV Diagnosis: Type 2 diabetes mellitus without complications[ICD10: E11.9] Diagnosis: Essential (primary) hypertension[ICD10: I10] Diagnosis: Headache[ICD10: R51] Diagnosis: Atrophy of thyroid (acquired)[ICD10: E03.4] Diagnosis: Vitamin B12 deficiency anemia, unspecified[ICD10: D51.9] Yarely Vega MD, [facility] CPT-4: 81998 01/23/2017 28225 EST. PATIENT, LEVEL III Diagnosis: Low back pain[ICD10: M54.5] Diagnosis: Pain in thoracic spine[ICD10: M54.6] Brianna Vega MD, [facility] CPT- 4: 39023 11/02/2016 ([id number]) 48673 EST. PATIENT, LEVEL IV Diagnosis: Essential (primary) hypertension[ICD10: I10] Diagnosis: Other vitamin B12 deficiency anemias[ICD10: D51.8] Diagnosis: Generalized abdominal pain[ICD10: R10.84] Yarely Vega MD, [facility] CPT-4: 36908 09/29/2016 ([id number]) 47128 EST. PATIENT, LEVEL IV Diagnosis: Essential (primary) hypertension[ICD10: I10] Yarely Vega MD, [facility] CPT-4: 83251 07/26/2016 ([id number]) 49924 EST. PATIENT, LEVEL IV Diagnosis: Benign lipomatous neoplasm of skin and subcutaneous tissue of right leg[ICD10: D17.23] Diagnosis: Pain in right ankle and joints of right foot[ICD10: M25.571] Diagnosis: Encounter for immunization[ICD10: Z23] Diagnosis: Vitamin B12 deficiency anemia, unspecified[ICD10: D51.9] Yarely Vega MD, [facility] CPT-4: 79519 05/25/2016 48794 EST. PATIENT, LEVEL III Diagnosis: Other chest pain[ICD10: R07.89] Diagnosis: Other vitamin B12 deficiency anemias[ICD10: D51.8] Brianna Vega MD, [facility] CPT-4: 72625 02/25/2016 ([id number]) 03363 EST. 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 PATIENT, LEVEL III Diagnosis: Other vitamin B12 deficiency anemias[ICD10: D51.8] Diagnosis: Acute nasopharyngitis [common cold][ICD10: J00] Diagnosis: Other allergic rhinitis[ICD10: J30.89] Brianna Vega MD, [facility] CPT- 4: 00171 11/11/2015 ([id number]) 14971 EST. PATIENT, LEVEL IV Diagnosis: Essential tremor[ICD10: G25.0] Diagnosis: Chronic fatigue, unspecified[ICD10: R53.82] Diagnosis: Other hypersomnia[ICD10: G47.19] Diagnosis: Essential (primary) hypertension[ICD10: I10] Yarely Vega MD, [facility] CPT-4: 12648 10/12/2015 ([id number]) 95777 EST. PATIENT, LEVEL IV Diagnosis: Essential (primary) hypertension[ICD10: I10] Diagnosis: Chronic atrial fibrillation[ICD10: I48.2] Diagnosis: Abnormal levels of other serum enzymes[ICD10: R74.8] Diagnosis: Type 2 diabetes mellitus without complications[ICD10: E11.9] Diagnosis: Vitamin B12 deficiency anemia, unspecified[ICD10: D51.9] Yarely Vega MD, [facility] CPT-4: 62918 09/03/2015 ([id number]) 95380 EST. PATIENT, LEVEL III Diagnosis: Nausea[ICD10: R11.0] Diagnosis: Essential tremor[ICD10: G25.0] Diagnosis: Actinic keratosis[ICD10: L57.0] Yarely Vega MD, [facility] CPT-4: 34114 05/19/2015 ([id number]) 93296 EST. PATIENT, LEVEL IV Diagnosis: Vitamin B12 deficiency anemia, unspecified[ICD10: D51.9] Diagnosis: Chronic atrial fibrillation[ICD10: I48.2] Diagnosis: Headache[ICD10: R51] Diagnosis: Chronic fatigue, unspecified[ICD10: R53.82] Diagnosis: Cervicalgia[ICD10: M54.2] Yarely Vega MD, [facility] CPT-4: 32081 05/12/2015 ([id number]) 81768 EST. PATIENT, LEVEL IV Diagnosis: ESSENTIAL HYPERTENSION[ICD9: 401.9] Diagnosis: Afib[ICD9: 427.31] Diagnosis: Anxiety[ICD9: 300.00] Diagnosis: Insomnia[ICD9: 780.52] Yarely Vega MD, [facility] CPT-4: 73968 01/13/2015 ([id number]) OFFICE VISIT, NEW - LEVEL 4 Diagnosis: Hypothyroidism[ICD9: 244.9] Diagnosis: DIABETES TYPE II[ICD9: 250.00] Diagnosis: ESSENTIAL HYPERTENSION[ICD9: 401.9] Diagnosis: Afib[ICD9: 427.31] Diagnosis: Anxiety[ICD9: 300.00] Diagnosis: B12 deficiency[ICD9: 266.2] Janet Vega MD, [facility] CPT-4: 36617 12/16/2014 Plan of Care Planned Activity Notes Codes Status Date Patient Education: Patient Medication Summary Completed 04/26/2018 Appointment: Injection 04/12/2018 Patient Education: Patient Medication Summary Completed 04/12/2018 Appointment: Injection 03/30/2018 Patient Education: Patient Medication Summary Completed 03/30/2018 Appointment: Injection 03/16/2018 Patient Education: Patient Medication Summary Completed 03/16/2018 Referral: Car [facility] Dr. Completed 03/08/2018 Referral: Car Pollard with Mateo Maldonado Completed 03/05/2018 Appointment: Injection 03/02/2018 Patient Education: Patient Medication Summary Completed 03/02/2018 Appointment: Yarely Vega WPtel: [address] [place], [place] [phone] (15 min) Moderate 02/26/2018 Patient Education: Patient Medication Summary Completed 02/26/2018 Care Plan: Referral Order SNOMED-CT : [id number] Pending 02/26/2018 Appointment: Injection 02/08/2018 Patient Education: Patient Medication Summary Completed 02/08/2018 Appointment: Injection 01/24/2018 Patient Education: Patient Medication Summary Completed 01/24/2018 Appointment: Injection 01/10/2018 Patient Education: Patient Medication Summary Completed 01/10/2018 Appointment: Injection 12/27/2017 Patient Education: Patient Medication Summary Completed 12/27/2017 Appointment: Yarely Vega WPtel: [phone] [facility] [place] (15 min) Moderate 12/26/2017 Appointment: Janet Fam WPtel: [phone] [phone] [place] (15 min) Moderate 12/12/2017 Patient Education: Patient Medication Summary Completed 12/12/2017 Appointment: Yarely Vega WPtel: [phone] [facility] [place] (15 min) Moderate 12/04/2017 Patient Education: Patient Medication Summary Completed 12/04/2017 Appointment: Injection 12/01/2017 Patient Education: Patient Medication Summary Completed 12/01/2017 [facility]ment[facility] [phone] [facility] [place] (15 min) Moderate 11/20/2017 Patient Education: Patient Medication Summary Completed 11/20/2017 Appointment: Injection 11/17/2017 Patient Education: Patient Medication Summary Completed 11/17/2017 Appointment: Injection 11/02/2017 Patient Education: Patient Medication Summary Completed 11/02/2017 Appointment: Injection 10/20/2017 Patient Education: Patient Medication Summary Completed 10/20/2017 Appointment: Injection 10/06/2017 Patient Education: Patient Medication Summary Completed 10/06/2017 Appointment: Injection 09/21/2017 Patient Education: Patient Medication Summary Completed 09/21/2017 Appointment: Janet Fam WPtel: [phone] [phone] [place] (15 min) Moderate 09/15/2017 Patient Education: Patient Medication Summary Completed 09/15/2017 Appointment: Yarely Vega WPtel: [phone] [facility] [place] (15 min) Moderate 09/11/2017 Appointment: [facility]ole [facility]el[facility] [phone] [facility] [place] (10 min) Simple 09/07/2017 Patient Education: Patient Medication Summary Completed 09/07/2017 Appointment: Yarely Vega WPtel: [phone] [facility] [place] (15 min) Moderate 08/30/2017 Patient Education: Patient Medication Summary Completed 08/30/2017 Appointment: Injection 08/24/2017 Appointment: Yarely Vega WPtel: [facility]5 [facility] (15 min) Moderate 08/24/2017 Patient Education: Patient Medication Summary Completed 08/24/2017 Appointment: Yarely Vega WPtel: [phone] [facility] [place] (15 min) Moderate 07/06/2017 Patient Education: Patient Medication Summary Completed 07/06/2017 Appointment: Brianna Otoole [facility]el[phone] [place] (15 min) Moderate 06/20/2017 Patient Education: Patient Medication Summary Completed 06/20/2017 Appointment: Injection 06/05/2017 Appointment: Brianna Otoole [facility]el[phone] [place] MCR - Annual Wellness Visit 06/05/2017 Patient Education: Patient Medication Summary Completed 06/05/2017 Appointment: Yarely Vega WPtel: [phone] [facility] [place] (15 min) Moderate 05/25/2017 Patient Education: Patient Medication Summary Completed 05/25/2017 Patient Education: Hypertension Completed 05/25/2017 Appointment: Injection 05/16/2017 Patient Education: Patient Medication Summary Completed 05/16/2017 Appointment: Injection 05/01/2017 Patient Education: Patient Medication Summary Completed 05/01/2017 Appointment: Injection 04/18/2017 Patient Education: Patient Medication Summary Completed 04/18/2017 Appointment: Injection 04/06/2017 Patient Education: Patient Medication Summary Completed 04/06/2017 [phone] [place] ([facility]) Moderate 03/23/2017 Patient Education: Patient Medication Summary Completed 03/23/2017 Appointment: Injection 03/22/2017 Patient Education: Patient Medication Summary Completed 03/22/2017 Appointment: Injection 03/09/2017 Patient Education: Patient Medication Summary Completed 03/09/2017 Appointment: Injection 02/23/2017 Patient Education: Patient Medication Summary Completed 02/23/2017 Appointment: Injection 02/09/2017 Appointment: Nurse Visit 02/09/2017 Patient Education: Patient Medication Summary Completed 02/09/2017 Appointment: Yare[facility]ega [facility]el[facility] [place] ([place] min) Moderate 01/23/2017 Patient Education: [...] Summary Completed 11/07/2016 Appointment: Brianna Otoole WPtel: [facility] [place] (15 min) Moderate 11/02/2016 Patient Education: Patient Medication Summary Completed 11/02/2016 Appointment: Injection 10/24/2016 Patient Education: Patient Medication Summary Completed 10/24/2016 Appointment: [phone] [place] (15 min) Moderate 09/29/2016 Patient Education: Patient Medication Summary Completed 09/29/2016 App[facility]ment[phone] [facility] [place] ([facility] min) Moderate 09/27/2016 App[facility]ment: [phone] [facility] [place] ([facility] min) Moderate 09/20/2016 Appointment: [phone] [facility] [place] ([facility] min) Moderate 09/20/2016 Patient Education: Patient Medication Summary Completed 09/06/2016 App[facility]ment: [phone] [facility] [place] (15 min) Moderate 08/30/2016 Appointment: Injection 08/29/2016 Patient Education: Patient Medication Summary Completed 08/29/2016 Appointment: Injection 08/04/2016 Patient Education: Patient Medication Summary Completed 08/04/2016 Appointment: Yarely Vega [facility]el[facility] [place] ([facility] min) Moderate 07/26/2016 Patient [...] Summary Completed 06/09/2016 Appointment: [phone] [facility] [place] [facility] - Annual Wellness Visit 05/30/2016 Patient Education: Patient Medication Summary Completed 05/30/2016 Patient Education: Obesity Completed 05/30/2016 App[facility]ment: [phone] [facility] [place] (15 min) Moderate 05/25/2016 Patient Education: Patient Medication Summary Completed 05/25/2016 Patient Education: Obesity Completed 05/25/2016 Care Plan: Referral Order SNOMED-CT : [id number] Pending 05/25/2016 Appointment: Injection 05/10/2016 Patient Education: Patient Medication Summary Completed 05/10/2016 Appointment: Injection 04/26/2016 Patient Education: Patient Medication Summary Completed 04/26/2016 Appointment: Injection 04/11/2016 Patient Education: Patient Medication Summary Completed 04/11/2016 Appointment: Injection 03/31/2016 Patient Education: Patient Medication Summary Completed 03/31/2016 Patient Education: Patient Medication Summary Completed 03/22/2016 Care Plan: [facility] [id number] Pending 03/22/2016 Appointment: Injection 03/15/2016 Patient Education: Patient Medication Summary Completed 03/15/2016 Appointment: [facility]toole [phone] [facility] (15 min) Moderate 02/25/2016 Patient Education: Patient [...] Completed 10/29/2015 App[facility]ment: [phone] [facility] (15 min) Moderate 10/12/2015 Patient Education: [...] Summary Completed 08/17/2015 Appointment: Yarely Vega WPtel[facility] (15 min) Moderate 08/11/2015 Appointment: Injection 08/06/2015 Patient Education: Patient Medication Summary Completed 08/06/2015 Patient Education: Patient Medication Summary Completed 07/22/2015 Patient Education: Patient Medication Summary Completed 07/08/2015 Appointment: Injection 06/23/2015 Patient Education: Patient Medication Summary Completed 06/23/2015 Appointment: Injection 06/08/2015 Patient Education: Patient Medication Summary Completed 06/08/2015 Appointment: Injection 05/27/2015 Patient Education: Patient Medication Summary Completed 05/27/2015 Appointment: Yarely Vega WPtel[facility] (30 min) Complex 05/19/2015 Patient Education: [...] Summary Completed 01/22/2015 Appointment: Yarely Vega WPtel[facility] (15 min) Moderate 01/13/2015 Patient Education: Patient Medication Summary Completed 01/13/2015 Patient Education: Hypertension Completed 01/13/2015 Appointment: Injection 01/08/2015 Patient Education: Patient Medication Summary Completed 01/08/2015 Appointment: Injection 12/25/2014 Patient Education: Patient Medication Summary Completed 12/25/2014 Appointment: Janet Famtel: [phone] [place] New Patient 12/16/2014 Patient Education: [...] Referral: [facility] Referral Appointment Requested Instructions No Instructions
--- OUTSIDE RECORDS SUMMARY | 2018-12-05 20:12 | XMS REPORT | CCD ---
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 Name Role Phone PP Unavailable CCM Unavailable Summary Purpose Interface Exchange Insurance Providers Payer name Policy type / Coverage type Covered democrat ID Effective Begin Date Effective End Date WPS Medicare Part B Medicare Part B [id number] Unknown Principal Life Insurance Medicare Part B [id number] Unknown Family history Brother Diagnosis Age At Onset Heart Attack Unknown Mother Diagnosis Age At Onset Hypertension Unknown kidney disease Unknown Stroke Unknown Father Diagnosis Age At Onset Arthritis Unknown Social History Social History Element Codes Description Effective Dates Employment Unknown Retired worked at [email or web address] 11/20/2017 Marital status Unknown Single 12/16/[address]: 7896735 Former smoker 12/16/[address]: 224298086 Never drinks alcohol 12/16/2014 Allergies, Adverse Reactions, Alerts Substance Reaction Codes Entered Date Inactivated Date Status CODEINE RxNorm: 2670 05/25/2016 No Inactive Date Active ciprofloxacin RxNorm: 28087 12/16/2014 No Inactive Date Active MORPHINE SULFATE [...] (vit B-12) 1,000 mcg/mL injection solution RxNorm: 345752 Milliliter(s) Inj 04/26/2018 04/26/2018 Inactive hydrocodone 5 mg-acetaminophen 325 mg tablet RxNorm: 449580 1-2 Tablet(s) PO Q6 as needed for pain 04/25/2018 05/24/2018 Active cyanocobalamin (vit B-12) 1,000 mcg/mL injection solution RxNorm: 159379 Milliliter(s) Inj 04/12/2018 04/12/2018 Inactive Topamax 25 mg tablet RxNorm: 576251 1 Tablet(s) PO BID 04/09/2018 08/06/2018 Active Generic For:TOPAMAX 25MG 12/06/2016 9:15:13 AM Zoloft 50 mg tablet RxNorm: 971930 TAKE 1 TABLET BY MOUTH ONCE DAILY 04/04/2018 12/29/2018 Active Generic For:ZOLOFT 50MG 04/04/2018 9:13:25 AM cyanocobalamin (vit B-12) 1,000 mcg/mL injection solution RxNorm: 432907 Milliliter(s) Inj 03/30/2018 03/30/2018 Inactive levothyroxine 125 mcg tablet RxNorm: 472561 TAKE 1 TABLET BY MOUTH EVERY DAY 03/26/2018 09/21/2018 Active Generic For:SYNTHROID 125MCG TAB 03/26/2018 9:15:59 AM liothyronine 5 mcg tablet RxNorm: 058364 TAKE 1 TABLET BY MOUTH TWICE DAILY 03/26/2018 09/21/2018 Active Generic For:CYTOMEL 5MCG 03/26/2018 9:15:54 AM hydrocodone 5 mg-acetaminophen 325 mg tablet RxNorm: 207257 1-2 Tablet(s) PO Q6 as needed for pain 03/19/2018 04/17/2018 Inactive cyanocobalamin (vit B-12) 1,000 mcg/mL injection solution RxNorm: 886128 Milliliter(s) Inj 03/16/2018 03/16/2018 Inactive Flonase Allergy Relief 50 mcg/actuation nasal spray,suspension RxNorm: 4159853 1 [place] NASAL BID 03/05/2018 07/02/2018 Active cyanocobalamin (vit B-12) 1,000 mcg/mL injection solution RxNorm: 429367 Milliliter(s) Inj 03/02/2018 03/02/2018 Inactive alprazolam 0.25 mg tablet RxNorm: 536099 1 Tablet(s) PO BID 02/28/2018 05/28/2018 Active cyanocobalamin (vit B-12) 1,000 mcg/mL injection solution RxNorm: 933151 Milliliter(s) Inj 02/08/2018 02/08/2018 Inactive albuterol sulfate 2.5 mg/3 mL (0.083 %) solution for nebulization RxNorm: 235870 3 Milliliter(s) INH Q6 PRN 01/24/2018 No Stop Date Active cyanocobalamin (vit B-12) 1,000 mcg/mL injection solution RxNorm: 184919 Milliliter(s) Inj 01/24/2018 01/24/2018 Inactive Claritin 10 mg tablet RxNorm: 806554 1 Tablet(s) PO daily 01/15/2018 05/14/2018 Active cyanocobalamin (vit B-12) 1,000 mcg/mL injection solution RxNorm: 869179 Milliliter(s) Inj 01/10/2018 01/10/2018 Inactive hydrocodone 5 mg-acetaminophen 325 mg tablet RxNorm: 681982 1-2 Tablet(s) PO Q6 as needed for pain 01/09/2018 02/07/2018 Inactive cyanocobalamin (vit B-12) 1,000 mcg/mL injection solution RxNorm: 276433 Milliliter(s) Inj 12/27/2017 12/27/2017 Inactive cyanocobalamin (vit B-12) 1,000 mcg/mL injection solution RxNorm: 291877 1 Milliliter(s) Inj 12/12/2017 12/12/2017 Inactive Zofran ODT 4 mg disintegrating tablet RxNorm: 136399 1 Tablet(s) PO TID as needed 12/08/2017 12/09/2017 Inactive hydrocodone 2.5 mg-guaifenesin 200 mg/5 mL oral solution RxNorm: 074914 5 Milliliter(s) PO 12/04/2017 No Stop Date Active doxycycline hyclate 100 mg capsule RxNorm: 1899637 1 Capsule(s) PO BID 12/04/2017 12/13/2017 Inactive cyanocobalamin (vit B-12) 1,000 mcg/mL injection solution RxNorm: 755146 Milliliter(s) Inj 12/01/2017 12/01/2017 Inactive Flonase Allergy Relief 50 mcg/actuation nasal spray,suspension RxNorm: 2138186 1 [place] NASAL BID 11/20/2017 2018 Inactive cyanocobalamin (vit B-12) 1,000 mcg/mL injection solution RxNorm: 013252 1 Milliliter(s) Inj 11/17/2017 11/17/2017 Inactive hydrocodone 5 mg-acetaminophen 325 mg tablet RxNorm: 999295 1-2 Tablet(s) PO Q6 as needed for pain 11/16/2017 12/15/2017 Inactive cyanocobalamin (vit B-12) 1,000 mcg/mL injection solution RxNorm: 076289 1 Milliliter(s) Inj 11/02/2017 11/02/2017 Inactive hydrocodone 5 mg-acetaminophen 325 mg tablet RxNorm: 512485 1-2 Tablet(s) PO Q6 as needed for pain 10/25/2017 11/15/2017 Inactive Claritin 10 mg tablet RxNorm: 883140 1 Tablet(s) PO daily 10/25/2017 11/19/2017 Inactive albuterol sulfate 2.5 mg/3 mL (0.083 %) solution for nebulization RxNorm: 365194 3 Milliliter(s) INH Q6 PRN 10/25/2017 01/23/2018 Inactive Claritin 10 mg tablet RxNorm: 434733 1 Tablet(s) PO daily 10/25/2017 10/24/2017 Inactive cyanocobalamin (vit B-12) 1,000 mcg/mL injection solution RxNorm: 897625 1 Milliliter(s) Inj 10/20/2017 10/20/2017 Inactive Zoloft 50 mg tablet RxNorm: 205446 TAKE 1 TABLET BY MOUTH ONCE DAILY 10/13/2017 04/03/2018 Inactive Generic For:ZOLOFT 50MG 10/13/2017 8:59:44 AM cyanocobalamin (vit B-12) 1,000 mcg/mL injection solution RxNorm: 116469 Milliliter(s) Inj 10/06/2017 10/06/2017 Inactive liothyronine 5 mcg tablet RxNorm: 452486 TAKE 1 TABLET BY MOUTH TWICE DAILY 10/03/2017 03/25/2018 Inactive Generic For:CYTOMEL 5MCG 10/03/2017 9:13:38 AM cyanocobalamin (vit B-12) 1,000 mcg/mL injection solution RxNorm: 932416 Milliliter(s) Inj 09/21/2017 09/21/2017 Inactive albuterol sulfate 2.5 mg/3 mL (0.083 %) solution for nebulization RxNorm: 374590 3 Milliliter(s) INH Q6 PRN 09/21/2017 10/24/2017 Inactive hydrocodone 5 mg-acetaminophen 325 mg tablet RxNorm: 851313 1-2 Tablet(s) PO Q6 as needed for pain 09/21/2017 10/20/2017 Inactive Kenalog 40 mg/mL suspension for injection RxNorm: 4524891 Milliliter(s) Inj 09/15/2017 09/15/2017 Inactive Keflex 500 mg capsule RxNorm: 428676 1 Capsule(s) PO TID 09/07/2017 09/16/2017 Inactive Please deliver to patient cyanocobalamin (vit B-12) 1,000 mcg/mL injection solution RxNorm: 646598 Milliliter(s) Inj 09/07/2017 09/07/2017 Inactive Aricept 10 mg tablet RxNorm: 690836 1 Tablet(s) PO daily 09/06/2017 08/31/2018 Active alprazolam 0.25 mg tablet RxNorm: 449006 1 Tablet(s) PO BID 09/06/2017 02/27/2018 Inactive hydrocodone 5 mg-acetaminophen 325 mg tablet RxNorm: 022179 1-2 Tablet(s) PO Q6 as needed for pain 08/24/2017 09/20/2017 Inactive cyanocobalamin (vit B-12) 1,000 mcg/mL injection solution RxNorm: 590721 Milliliter(s) Inj 08/24/2017 08/24/2017 Inactive Norvasc 5 mg tablet RxNorm: 345486 1 Tablet(s) PO daily 08/18/2017 08/12/2018 Active nystatin 100,000 unit/gram topical powder RxNorm: 706388 1 Gram(s) TOP QID 08/17/2017 08/26/2017 Inactive hydrocodone 5 mg-acetaminophen 325 mg tablet RxNorm: 305246 1-2 Tablet(s) PO Q6 as needed for pain 07/25/2017 08/23/2017 Inactive Tamiflu 75 mg capsule RxNorm: 109669 1 Capsule(s) PO BID 07/24/2017 12/11/2017 Inactive nystatin 100,000 unit/gram topical powder RxNorm: 650948 1 Gram(s) TOP QID 07/14/2017 07/22/2017 Inactive levothyroxine 125 mcg tablet RxNorm: 079186 Tablet(s) 1 Tablet(s) PO daily 07/10/2017 01/05/2018 Inactive nystatin 100,000 unit/gram topical powder RxNorm: 067466 1 Gram(s) TOP QID 07/06/2017 07/13/2017 Inactive cyanocobalamin (vit B-12) 1,000 mcg/mL injection solution RxNorm: 463292 Milliliter(s) Inj 07/06/2017 07/06/2017 Inactive Kenalog 40 mg/mL suspension for injection RxNorm: 0034522 1 Milliliter(s) Inj 06/20/2017 06/20/2017 Inactive doxycycline hyclate 100 mg capsule RxNorm: 7436078 1 Capsule(s) PO BID 06/20/2017 06/26/2017 Inactive cyanocobalamin (vit B-12) 1,000 mcg/mL injection solution RxNorm: 440327 Milliliter(s) Inj 06/20/2017 06/20/2017 Inactive Mobic 15 mg tablet RxNorm: 048381 1 Tablet(s) PO daily 06/14/2017 06/08/2018 Active Keflex 500 mg capsule RxNorm: 094863 1 Capsule(s) PO TID 06/14/2017 06/23/2017 Inactive Please deliver to patient cyanocobalamin (vit B-12) 1,000 mcg/mL injection solution RxNorm: 306603 Milliliter(s) Inj 06/05/2017 06/05/2017 Inactive buspirone 15 mg tablet RxNorm: 027702 TAKE 1 TABLET BY MOUTH TWICE DAILY 05/31/2017 05/25/2018 Active Generic For:BUSPAR 15MG 05/31/2017 9:19:20 AM cyanocobalamin (vit B-12) 1,000 mcg/mL injection solution RxNorm: 528035 Milliliter(s) Inj 05/25/2017 05/25/2017 Inactive hydrocodone 5 mg-acetaminophen 325 mg tablet RxNorm: 333175 1-2 Tablet(s) PO Q6 as needed for pain 05/25/2017 06/23/2017 Inactive amiodarone 200 mg tablet RxNorm: 711573 1/2 Tablet(s) PO daily 05/22/2017 No Stop Date Active cardiology decreased to 100mg daily cyanocobalamin (vit B-12) 1,000 mcg/mL injection solution RxNorm: 720423 Milliliter(s) Inj 05/16/2017 05/16/2017 Inactive Zofran ODT 4 mg disintegrating tablet RxNorm: 740230 1 Tablet(s) PO TID as needed 05/03/2017 05/04/2017 Inactive hydrocodone 5 mg-acetaminophen 325 mg tablet RxNorm: 121942 1-2 Tablet(s) PO Q6 as needed for pain 05/01/2017 05/05/2017 Inactive cyanocobalamin (vit B-12) 1,000 mcg/mL injection solution RxNorm: 373763 1 Milliliter(s) Inj 05/01/2017 05/01/2017 Inactive cyanocobalamin (vit B-12) 1,000 mcg/mL injection solution RxNorm: 779310 INJECT ONE 1 ML EVERY TWO WEEKS 04/26/2017 12/04/2018 Active 04/26/2017 9:08:52 AM Zoloft 50 mg tablet RxNorm: 260760 Tablet(s) TAKE 1 TABLET BY MOUTH DAILY 04/25/2017 10/12/2017 Inactive Generic For:ZOLOFT 50MG cyanocobalamin (vit B-12) 1,000 mcg/mL injection solution RxNorm: 481667 Milliliter(s) Inj 04/18/2017 04/18/2017 Inactive liothyronine 5 mcg tablet RxNorm: 764198 1 Tablet(s) PO BID 04/13/2017 10/02/2017 Inactive cyanocobalamin (vit B-12) 1,000 mcg/mL injection solution RxNorm: 844338 Milliliter(s) Inj 04/06/2017 04/06/2017 Inactive hydrocodone 5 mg-acetaminophen 325 mg tablet RxNorm: 775429 1-2 Tablet(s) PO Q6 as needed for pain 04/06/2017 04/10/2017 Inactive cyanocobalamin (vit B-12) 1,000 mcg/mL injection solution RxNorm: 508501 Milliliter(s) Inj 03/22/2017 03/22/2017 Inactive alprazolam 0.25 mg tablet RxNorm: 220184 1 Tablet(s) PO BID 03/17/2017 12/11/2017 Inactive alprazolam 0.25 mg tablet RxNorm: 770220 1 Tablet(s) PO BID 03/16/2017 09/05/2017 Inactive hydrocodone 5 mg-acetaminophen 325 mg tablet RxNorm: 090938 1-2 Tablet(s) PO Q6 as needed for pain 03/09/2017 03/13/2017 Inactive cyanocobalamin (vit B-12) 1,000 mcg/mL injection solution RxNorm: 497751 Milliliter(s) Inj 03/09/2017 03/09/2017 Inactive cyanocobalamin (vit B-12) 1,000 mcg/mL injection solution RxNorm: 954843 Milliliter(s) Inj 02/23/2017 02/23/2017 Inactive cyanocobalamin (vit B-12) 1,000 mcg/mL injection solution RxNorm: 525843 Milliliter(s) Inj 02/09/2017 02/09/2017 Inactive hydrocodone 5 mg-acetaminophen 325 mg tablet RxNorm: 817625 1-2 Tablet(s) PO Q6 as needed for pain 02/08/2017 02/12/2017 Inactive Topamax 25 mg tablet RxNorm: 821495 1 Tablet(s) PO BID 01/23/2017 05/22/2017 Inactive Generic For:TOPAMAX 25MG 12/06/2016 9:15:13 AM cyanocobalamin (vit B-12) 1,000 mcg/mL injection solution RxNorm: 550627 Milliliter(s) Inj 01/23/2017 01/23/2017 Inactive cyanocobalamin (vit B-12) 1,000 mcg/mL injection solution RxNorm: 316335 Milliliter(s) Inj 01/10/2017 01/10/2017 Inactive hydrocodone 5 mg-acetaminophen 325 mg tablet RxNorm: 430879 1-2 Tablet(s) PO Q6 as needed for pain 01/09/2017 01/13/2017 Inactive cyanocobalamin (vit B-12) 1,000 mcg/mL injection solution RxNorm: 968630 1 Milliliter(s) Inj 12/28/2016 12/28/2016 Inactive cyanocobalamin (vit B-12) 1,000 mcg/mL injection solution RxNorm: 156575 Milliliter(s) Inj 12/14/2016 12/14/2016 Inactive buspirone 15 mg tablet RxNorm: 553351 1 Tablet(s) PO BID 12/12/2016 05/30/2017 Inactive hydrocodone 5 mg-acetaminophen 325 mg tablet RxNorm: 371833 1-2 Tablet(s) PO Q6 as needed for pain 12/08/2016 12/12/2016 Inactive Topamax 25 mg tablet RxNorm: 764809 TAKE 1 TABLET BY MOUTH EVERY DAY AT BEDTIME 12/06/2016 01/22/2017 Inactive Generic For:TOPAMAX 25MG 12/06/2016 9:15:13 AM Lac-Hydrin Five 5 % lotion RxNorm: 869135 1 Gram(s) TOP daily 12/02/2016 01/30/2017 Inactive cyanocobalamin (vit B-12) 1,000 mcg/mL injection solution RxNorm: 044491 Milliliter(s) Inj 11/24/2016 11/24/2016 Inactive Ceftin 500 mg tablet RxNorm: 421968 1 Tablet(s) PO BID 11/11/2016 06/13/2017 Inactive Cipro 500 mg tablet RxNorm: 497126 1 Tablet(s) PO BID 11/11/2016 11/10/2016 Inactive Cipro 500 mg tablet RxNorm: 582428 1 Tablet(s) PO BID 11/11/2016 11/11/2016 Inactive cyanocobalamin (vit B-12) 1,000 mcg/mL injection solution RxNorm: 706041 1 Milliliter(s) Inj 11/07/2016 11/07/2016 Inactive hydrocodone 5 mg-acetaminophen 325 mg tablet RxNorm: 588877 1-2 Tablet(s) PO Q6 as needed for pain 11/02/2016 11/06/2016 Inactive cyanocobalamin (vit B-12) 1,000 mcg/mL injection solution RxNorm: 536092 Milliliter(s) Inj 10/24/2016 10/24/2016 Inactive levothyroxine 125 mcg tablet RxNorm: 745324 Tablet(s) 1 Tablet(s) PO daily 10/24/2016 04/21/2017 Inactive liothyronine 5 mcg tablet RxNorm: 545914 1 Tablet(s) PO BID 10/24/2016 04/12/2017 Inactive hydrocodone 5 mg-acetaminophen 325 mg tablet RxNorm: 950220 1-2 Tablet(s) PO Q6 as needed for pain 10/17/2016 10/21/2016 Inactive Keflex 500 mg capsule RxNorm: 331463 1 Capsule(s) PO TID 10/07/2016 10/06/2016 Inactive Keflex 500 mg capsule RxNorm: 729803 1 Capsule(s) PO TID 10/07/2016 10/16/2016 Inactive Please deliver to patient cyanocobalamin (vit B-12) 1,000 mcg/mL injection solution RxNorm: 843690 1 Milliliter(s) Inj 09/29/2016 09/29/2016 Inactive alprazolam 0.25 mg tablet RxNorm: 125411 1 Tablet(s) PO BID 09/20/2016 03/16/2017 Inactive Cozaar 100 mg tablet RxNorm: 872744 1 Tablet(s) PO daily 09/14/2016 No Stop Date Active metoprolol tartrate 50 mg tablet RxNorm: 074813 1/2 Tablet(s) PO BID 09/14/2016 12/12/2016 Inactive Zoloft 50 mg tablet RxNorm: 621812 Tablet(s) TAKE 1 TABLET BY MOUTH DAILY 09/14/2016 03/12/2017 Inactive Generic For:ZOLOFT 50MG liothyronine 5 mcg tablet RxNorm: 464237 1 Tablet(s) PO BID 09/14/2016 10/23/2016 Inactive Calmoseptine 0.44 %-20.6 % topical ointment RxNorm: 316078 1 Application TOP BID and as needed to sore on buttocks 09/07/2016 No Stop Date Active cyanocobalamin (vit B-12) 1,000 mcg/mL injection solution RxNorm: 998989 Milliliter(s) Inj 08/29/2016 08/29/2016 Inactive hydrocodone 5 mg-acetaminophen 325 mg tablet RxNorm: 477828 1-2 Tablet(s) PO Q6 as needed for pain 08/29/2016 10/16/2016 Inactive levothyroxine 125 mcg tablet RxNorm: 707361 1 Tablet(s) PO daily 08/25/2016 10/23/2016 Inactive Topamax 25 mg tablet RxNorm: 070822 TAKE 1 TABLET BY MOUTH EVERY DAY AT BEDTIME 08/17/2016 12/05/2016 Inactive Generic For:TOPAMAX 25MG 08/17/2016 2:14:37 PM hydrocodone 5 mg-acetaminophen 325 mg tablet RxNorm: 786181 1-2 Tablet(s) PO Q6 as needed for pain 08/11/2016 08/28/2016 Inactive hydrocodone 5 mg-acetaminophen 325 mg tablet RxNorm: 894950 1 -2 Tablet(s) PO Q6 as needed for pain 08/11/2016 08/18/2016 Inactive hydrocodone 5 mg-acetaminophen 325 mg tablet RxNorm: 373899 1 Tablet(s) PO Q6 as needed for pain 08/05/2016 08/10/2016 Inactive cyanocobalamin (vit B-12) 1,000 mcg/mL injection solution RxNorm: 124154 Milliliter(s) Inj 08/04/2016 08/04/2016 Inactive Norvasc 10 mg tablet RxNorm: 833447 1 Tablet(s) PO daily 07/26/2016 07/20/2017 Inactive alprazolam 0.25 mg tablet RxNorm: 895286 1 Tablet(s) PO QHS 07/21/2016 09/19/2016 Inactive Norvasc 5 mg tablet RxNorm: 462871 1 Tablet(s) PO daily 07/21/2016 07/25/2016 Inactive levothyroxine 125 mcg tablet RxNorm: 182751 1 Tablet(s) PO daily 07/21/2016 12/11/2017 Inactive cyanocobalamin (vit B-12) 1,000 mcg/mL injection solution RxNorm: 729036 Milliliter(s) Inj 07/21/2016 07/21/2016 Inactive Zoloft 50 mg tablet RxNorm: 012223 Tablet(s) TAKE 1 TABLET BY MOUTH DAILY 07/21/2016 09/13/2016 Inactive Generic For:ZOLOFT 50MG cyanocobalamin (vit B-12) 1,000 mcg/mL injection solution RxNorm: 156371 1 Milliliter(s) Inj 07/05/2016 07/05/2016 Inactive cyanocobalamin (vit B-12) 1,000 mcg/mL injection solution RxNorm: 362760 1 Milliliter(s) Inj 06/22/2016 06/22/2016 Inactive cyanocobalamin (vit B-12) 1,000 mcg/mL injection solution RxNorm: 380831 Milliliter(s) Inj 06/09/2016 06/09/2016 Inactive Aricept 10 mg tablet RxNorm: 712141 1 Tablet(s) PO daily 05/27/2016 05/21/2017 Inactive Mobic 15 mg tablet RxNorm: 402977 1 Tablet(s) PO daily 05/27/2016 05/21/2017 Inactive levothyroxine 125 mcg tablet RxNorm: 152436 1 Tablet(s) PO daily 05/25/2016 07/20/2016 Inactive cyanocobalamin (vit B-12) 1,000 mcg/mL injection solution RxNorm: 806282 1 Milliliter(s) Inj 05/25/2016 05/25/2016 Inactive doxycycline hyclate 100 mg capsule RxNorm: 5473526 1 Capsule(s) PO BID 05/16/2016 05/15/2016 Inactive doxycycline hyclate 100 mg capsule RxNorm: 6695373 1 Capsule(s) PO BID 05/16/2016 05/22/2016 Inactive cyanocobalamin (vit B-12) 1,000 mcg/mL injection solution RxNorm: 825507 Milliliter(s) Inj 05/10/2016 05/10/2016 Inactive cyanocobalamin (vit B-12) 1,000 mcg/mL injection solution RxNorm: 939391 Milliliter(s) Inj 04/26/2016 04/26/2016 Inactive Topamax 25 mg tablet RxNorm: 472022 1 Tablet(s) PO QPM 04/22/2016 08/16/2016 Inactive cyanocobalamin (vit B-12) 1,000 mcg/mL injection solution RxNorm: 628333 Milliliter(s) 1 Milliliter(s) Inj [id number] 04/11/2016 12/31/2017 Inactive liothyronine 5 mcg tablet RxNorm: 011949 1 Tablet(s) PO BID 04/11/2016 09/13/2016 Inactive cyanocobalamin (vit B-12) 1,000 mcg/mL injection solution RxNorm: 266624 Milliliter(s) Inj 04/11/2016 04/11/2016 Inactive cyanocobalamin (vit B-12) 1,000 mcg/mL injection solution RxNorm: 120353 Milliliter(s) Inj 03/31/2016 03/31/2016 Inactive cyanocobalamin (vit B-12) 1,000 mcg/mL injection solution RxNorm: 064761 1 Milliliter(s) Inj 03/15/2016 03/15/2016 Inactive levothyroxine 125 mcg tablet RxNorm: 160410 1 Tablet(s) PO daily 2016 03/03/2016 Inactive levothyroxine 125 mcg tablet RxNorm: 707507 1 Tablet(s) PO daily 2016 05/24/2016 Inactive cyanocobalamin (vit B-12) 1,000 mcg/mL injection solution RxNorm: 348195 Milliliter(s) Inj 02/25/2016 02/25/2016 Inactive cyanocobalamin (vit B-12) 1,000 mcg/mL injection solution RxNorm: 003802 1 Milliliter(s) Inj 02/02/2016 02/02/2016 Inactive sucralfate 1 gram tablet RxNorm: 756865 1 Tablet(s) PO QHS 01/25/2016 No Stop Date Active amiodarone 200 mg tablet RxNorm: 258722 1/2 Tablet(s) PO BID 01/25/2016 05/21/2017 Inactive cyanocobalamin (vit B-12) 1,000 mcg/mL injection solution RxNorm: 014001 Milliliter(s) Inj 01/18/2016 01/18/2016 Inactive cyanocobalamin (vit B-12) 1,000 mcg/mL injection solution RxNorm: 921510 Milliliter(s) Inj 12/29/2015 12/29/2015 Inactive Topamax 25 mg tablet RxNorm: 603244 1 Tablet(s) PO QPM 12/08/2015 04/05/2016 Inactive cyanocobalamin (vit B-12) 1,000 mcg/mL injection solution RxNorm: 083985 Milliliter(s) Inj 12/08/2015 12/08/2015 Inactive Bactrim DS 800 mg-160 mg tablet RxNorm: 660942 1 Tablet(s) PO BID 11/23/2015 11/22/2015 Inactive cyanocobalamin (vit B-12) 1,000 mcg/mL injection solution RxNorm: 988819 Milliliter(s) Inj 11/23/2015 11/23/2015 Inactive Bactrim DS 800 mg-160 mg tablet RxNorm: 384394 1 Tablet(s) PO BID 11/23/2015 11/29/2015 Inactive cyanocobalamin (vit B-12) 1,000 mcg/mL injection solution RxNorm: 082312 Milliliter(s) Inj 11/11/2015 11/11/2015 Inactive amoxicillin 500 mg capsule RxNorm: 583507 1 Capsule(s) PO TID 11/10/2015 11/19/2015 Inactive Zithromax Z-Henrique 250 mg tablet RxNorm: 550066 1 Tablet(s) PO UD 11/10/2015 01/24/2016 Inactive zpack x 1 amoxicillin 500 mg capsule RxNorm: 657525 1 Capsule(s) PO TID 11/10/2015 11/09/2015 Inactive cyanocobalamin (vit B-12) 1,000 mcg/mL injection solution RxNorm: 856107 1 Milliliter(s) Inj 10/29/2015 10/29/2015 Inactive Addison 3 capsule RxNorm: 1 Capsule(s) PO QAM , 2 Capsules at noon, 1 Capsule QHS 10/13/2015 No Stop Date Active potassium chloride ER 20 mEq tablet,extended release RxNorm: 905237 2 Tablet(s) PO daily at noon 10/13/2015 No Stop Date Active alprazolam 0.25 mg tablet RxNorm: 019724 1 Tablet(s) PO QHS 10/13/2015 07/20/2016 Inactive amiodarone 200 mg tablet RxNorm: 876694 1 Tablet(s) PO BID 10/13/2015 01/24/2016 Inactive cyanocobalamin (vit B-12) 1,000 mcg/mL injection solution RxNorm: 869007 1 Milliliter(s) Inj 10/12/2015 10/12/2015 Inactive Zofran 4 mg tablet RxNorm: 174655 1 Tablet(s) PO daily as needed 10/07/2015 05/24/2016 Inactive Zoloft 50 mg tablet RxNorm: 801738 TAKE 1 TABLET BY MOUTH DAILY 10/05/2015 05/01/2016 Inactive Generic For:ZOLOFT 50MG cyanocobalamin (vit B-12) 1,000 mcg/mL injection solution RxNorm: 291186 1 Milliliter(s) Inj 09/29/2015 09/29/2015 Inactive cyanocobalamin (vit B-12) 1,000 mcg/mL injection solution RxNorm: 613310 1 Milliliter(s) Inj 09/17/2015 09/17/2015 Inactive Norvasc 5 mg tablet RxNorm: 148133 1 Tablet(s) PO daily 09/17/2015 07/20/2016 Inactive liothyronine 5 mcg tablet RxNorm: 069324 1 Tablet(s) PO BID 09/17/2015 03/14/2016 Inactive Zoloft 50 mg tablet RxNorm: 831934 1 Tablet(s) PO daily 09/17/2015 10/04/2015 Inactive buspirone 15 mg tablet RxNorm: 381921 1 Tablet(s) PO BID 09/17/2015 09/10/2016 Inactive buspirone 15 mg tablet RxNorm: 686386 1 Tablet(s) PO BID 09/14/2015 09/16/2015 Inactive Topamax 25 mg tablet RxNorm: 174829 1 Tablet(s) PO QPM 09/03/2015 12/07/2015 Inactive cyanocobalamin (vit B-12) 1,000 mcg/mL injection solution RxNorm: 384593 1 Milliliter(s) Inj 09/03/2015 09/03/2015 Inactive cyanocobalamin (vit B-12) 1,000 mcg/mL injection solution RxNorm: 443913 Milliliter(s) Inj 08/17/2015 08/17/2015 Inactive cyanocobalamin (vit B-12) 1,000 mcg/mL injection solution RxNorm: 022575 Milliliter(s) Inj 08/06/2015 08/06/2015 Inactive levothyroxine 150 mcg tablet RxNorm: 485986 1 Tablet(s) PO daily 07/22/2015 03/03/2016 Inactive Aricept 10 mg tablet RxNorm: 676040 1 Tablet(s) PO daily 07/22/2015 05/26/2016 Inactive Mobic 15 mg tablet RxNorm: 025463 1 Tablet(s) PO daily 07/22/2015 05/26/2016 Inactive cyanocobalamin (vit B-12) 1,000 mcg/mL injection solution RxNorm: 380928 Milliliter(s) Inj 07/22/2015 07/22/2015 Inactive liothyronine 5 mcg tablet RxNorm: 682565 1 Tablet(s) PO BID 07/22/2015 09/16/2015 Inactive cyanocobalamin (vit B-12) 1,000 mcg/mL injection solution RxNorm: 342336 Milliliter(s) Inj 07/08/2015 07/08/2015 Inactive cyanocobalamin (vit B-12) 1,000 mcg/mL injection solution RxNorm: 941051 Milliliter(s) Inj 06/23/2015 06/23/2015 Inactive cyanocobalamin (vit B-12) 1,000 mcg/mL injection solution RxNorm: 988940 1 Milliliter(s) Inj 06/08/2015 06/08/2015 Inactive cyanocobalamin (vit B-12) 1,000 mcg/mL injection solution RxNorm: 789218 Milliliter(s) Inj 05/27/2015 05/27/2015 Inactive Aricept 10 mg tablet RxNorm: 685509 1 Tablet(s) PO daily 05/20/2015 07/21/2015 Inactive Zofran 4 mg tablet RxNorm: 130683 1 Tablet(s) PO daily as needed 05/20/2015 06/18/2015 Inactive alprazolam 0.25 mg tablet RxNorm: 636832 1 Tablet(s) PO BID 05/20/2015 10/12/2015 Inactive Mobic 15 mg tablet RxNorm: 634797 1 Tablet(s) PO daily 05/20/2015 07/21/2015 Inactive tramadol ER 100 mg tablet,extended release 24 hr RxNorm: 643400 1 Tablet(s) PO Q6 as needed 05/13/2015 No Stop Date Active cyanocobalamin (vit B-12) 1,000 mcg/mL injection solution RxNorm: 843977 1 Milliliter(s) Inj 05/12/2015 05/12/2015 Inactive Topamax 25 mg tablet RxNorm: 451522 1 Tablet(s) PO BID (start at one pill at bedtime x 1week then twice daily thereafter) 05/12/2015 09/02/2015 Inactive cyanocobalamin (vit B-12) 1,000 mcg/mL injection kit RxNorm: 506581 kit Inj 04/30/2015 04/30/2015 Inactive cyanocobalamin (vit B-12) 1,000 mcg/mL injection solution RxNorm: 519901 Milliliter(s) Inj 04/16/2015 04/16/2015 Inactive levothyroxine 150 mcg tablet RxNorm: 624182 1 Tablet(s) PO daily 04/08/2015 07/21/2015 Inactive cyanocobalamin (vit B-12) 1,000 mcg/mL injection solution RxNorm: [id number] Milliliter(s) 1 Milliliter(s) Inj H7rodbl 04/08/2015 04/10/2016 Inactive Cytomel 5 mcg tablet RxNorm: 215125 1 Tablet(s) PO BID 04/08/2015 10/12/2015 Inactive Cytomel 5 mcg tablet RxNorm: 057827 1 Tablet(s) PO BID 04/07/2015 04/07/2015 Inactive Cytomel 5 mcg tablet RxNorm: 027741 1 Tablet(s) PO BID 04/07/2015 04/06/2015 Inactive cyanocobalamin (vit B-12) 1,000 mcg/mL injection solution RxNorm: 228240 Milliliter(s) Inj 04/02/2015 04/02/2015 Inactive cyanocobalamin (vit B-12) 1,000 mcg/mL injection solution RxNorm: 422438 Milliliter(s) Inj 03/18/2015 03/18/2015 Inactive cyanocobalamin (vit B-12) 1,000 mcg/mL injection solution RxNorm: 362320 Milliliter(s) 1 Milliliter(s) Inj [id number] 03/18/2015 04/07/2015 Inactive cyanocobalamin (vit B-12) 1,000 mcg/mL injection solution RxNorm: 785684 1 Milliliter(s) Inj A6isrtj 03/16/2015 03/17/2015 Inactive cyanocobalamin (vit B-12) 1,000 mcg/mL injection solution RxNorm: 138136 Milliliter(s) Inj 03/03/2015 03/03/2015 Inactive cyanocobalamin (vit B-12) 1,000 mcg/mL injection solution RxNorm: 601840 Milliliter(s) Inj 02/18/2015 02/18/2015 Inactive cyanocobalamin (vit B-12) 1,000 mcg/mL injection solution RxNorm: 188330 Milliliter(s) Inj 02/04/2015 02/04/2015 Inactive cyanocobalamin (vit B-12) 1,000 mcg/mL injection solution RxNorm: 498551 Milliliter(s) Inj 01/22/2015 01/22/2015 Inactive Lac-Hydrin Five 5 % lotion RxNorm: 855840 1 TOP daily 01/13/2015 03/13/2015 Inactive Lac-Hydrin Five 5 % lotion RxNorm: 882227 1 TOP daily 01/13/2015 01/12/2015 Inactive cyanocobalamin (vit B-12) 1,000 mcg/mL injection solution RxNorm: 283300 Milliliter(s) Inj 01/08/2015 01/08/2015 Inactive cyanocobalamin (vit B-12) 1,000 mcg/mL injection solution RxNorm: 024047 Milliliter(s) Inj 12/25/2014 12/25/2014 Inactive levothyroxine 150 mcg tablet RxNorm: 359052 1 Tablet(s) PO daily 12/24/2014 04/07/2015 Inactive tramadol 50 mg tablet RxNorm: 741429 1-2 Tablet(s) PO Q6 as needed 12/17/2014 05/12/2015 Inactive alprazolam 0.25 mg tablet RxNorm: 616137 1 Tablet(s) PO BID 12/17/2014 04/15/2015 Inactive Pradaxa 150 mg capsule RxNorm: 6516757 1 Capsule(s) PO BID 12/16/2014 No Stop Date Active metoprolol tartrate 50 mg tablet RxNorm: 725374 1/2 Tablet(s) PO BID 12/16/2014 09/13/2016 Inactive buspirone 15 mg tablet RxNorm: 811189 1 Tablet(s) PO BID 12/16/2014 09/13/2015 Inactive cyanocobalamin (vit B-12) 1,000 mcg/mL injection solution RxNorm: 044589 1 Milliliter(s) Inj Z9pxaje 12/16/2014 03/15/2015 Inactive cyanocobalamin (vit B-12) 1,000 mcg/mL injection solution RxNorm: 339593 1 Milliliter(s) Inj H0fsrle 12/16/2014 12/15/2014 Inactive sucralfate 1 gram tablet RxNorm: 233311 Tablet(s) PO QID 12/16/2014 12/10/2015 Inactive cyanocobalamin (vit B-12) 1,000 mcg/mL injection solution RxNorm: 001173 Milliliter(s) Inj 12/10/2014 12/10/2014 Inactive cyanocobalamin (vit B-12) 1,000 mcg/mL injection solution RxNorm: 963479 Milliliter(s) Inj 11/26/2014 11/26/2014 Inactive Zoloft 50 mg tablet RxNorm: 325514 1 Tablet(s) PO daily 11/24/2014 06/21/2015 Inactive Zoloft 50 mg tablet RxNorm: 320748 1 Tablet(s) PO daily 11/24/2014 11/23/2014 Inactive cyanocobalamin (vit B-12) 1,000 mcg/mL injection kit RxNorm: 480056 Milliliter(s) Inj 11/12/2014 11/12/2014 Inactive cyanocobalamin (vit B-12) 1,000 mcg/mL injection solution RxNorm: 411647 Milliliter(s) Inj 10/28/2014 10/28/2014 Inactive [SAVINGS FOR NON-COVERED DRUGS -- BIN:[id number], PCN: [id number], Group: [id number], ID# [id number], Questions: . THIS IS NOT INSURANCE.] promethazine oral RxNorm: 8745 oral No Start Date Active digoxin 125 mcg tablet RxNorm: 158217 Tablet(s) PO every other day No Start Date Active furosemide 40 mg tablet RxNorm: 356337 1 Tablet(s) PO daily No Start Date Active Vitamin D3 5,000 unit tablet RxNorm: 651433 1 Tablet(s) PO daily No Start Date Active erythromycin 250 mg capsule,delayed release RxNorm: 971580 1 Capsule(s) PO AC No Start Date Active Protonix 40 mg tablet,delayed release RxNorm: 248365 1 Tablet(s) PO BID No Start Date Active Cozaar 100 mg tablet RxNorm: 549810 1 Tablet(s) PO daily No Start Date 09/13/2016 Inactive sucralfate 1 gram tablet RxNorm: 621723 Tablet(s) PO QID No Start Date 12/15/2014 Inactive amiodarone 200 mg tablet RxNorm: 434530 2 Tablet(s) PO daily No Start Date 10/13/2015 Inactive buspirone 15 mg tablet RxNorm: 823468 1 Tablet(s) PO daily No Start Date 12/15/2014 Inactive potassium chloride ER 20 mEq tablet,extended release RxNorm: 937596 1 Tablet(s) PO daily No Start Date 10/12/2015 Inactive Prilosec 40 mg capsule,delayed release RxNorm: 096716 1 Capsule(s) PO daily No Start Date 09/02/2015 Inactive Addison 3 capsule RxNorm: Capsule(s) PO No Start Date 10/12/2015 Inactive alprazolam 0.25 mg tablet RxNorm: 900641 Tablet(s) PO QHS No Start Date 12/16/2014 Inactive levothyroxine 125 mcg tablet RxNorm: 709307 1 Tablet(s) PO daily No Start Date 12/23/2014 Inactive liothyronine 5 mcg tablet RxNorm: 885218 1 Tablet(s) PO BID No Start Date 07/21/2015 Inactive Mobic 15 mg tablet RxNorm: 483649 Tablet(s) PO daily No Start Date 05/19/2015 Inactive Norvasc 5 mg tablet RxNorm: 483034 1 Tablet(s) PO daily No Start Date 09/16/2015 Inactive Zofran 4 mg tablet RxNorm: 093321 1 Tablet(s) PO daily as needed No Start Date 05/19/2015 Inactive Tamiflu 75 mg capsule RxNorm: 986402 1 Capsule(s) PO BID No Start Date 07/23/2017 Inactive tramadol 50 mg tablet RxNorm: 057461 1 Tablet(s) PO daily as needed No Start Date 12/16/2014 Inactive amiodarone 200 mg tablet RxNorm: 148530 1 Tablet(s) PO daily No Start Date 10/12/2015 Inactive Zofran ODT 4 mg disintegrating tablet RxNorm: 547215 1 Tablet(s) PO TID as needed No Start Date 05/02/2017 Inactive albuterol sulfate 2.5 mg/3 mL (0.083 %) solution for nebulization RxNorm: 623578 3 Milliliter(s) INH Q6 PRN No Start Date 09/20/2017 Inactive meclizine 25 mg tablet RxNorm: 511969 Tablet(s) PO as needed No Start Date 05/24/2016 Inactive Pradaxa 150 mg capsule RxNorm: 3141328 1 Capsule(s) PO daily No Start Date 12/15/2014 Inactive metoprolol tartrate 50 mg tablet RxNorm: 733907 1/2 Tablet(s) PO No Start Date 12/15/2014 Inactive Aricept 10 mg tablet RxNorm: 487485 Tablet(s) PO daily No Start Date 05/19/2015 Inactive Calmoseptine 0.44 %-20.6 % topical ointment RxNorm: 393561 1 Application TOP BID and as needed to sore on buttocks No Start Date 09/06/2016 Inactive Zithromax Z-Henrique 250 mg tablet RxNorm: 973773 1 Tablet(s) PO UD No Start Date 11/09/2015 Inactive zpack x 1 Medication Administered Medication Codes Instructions Start Date Status cyanocobalamin (vit B-12) 1,000 mcg/mL injection solution RxNorm: 935487 Milliliter 04/26/2018 Active cyanocobalamin (vit B-12) 1,000 mcg/mL injection solution RxNorm: 098742 Milliliter 04/12/2018 No longer Active cyanocobalamin (vit B-12) 1,000 mcg/mL injection solution RxNorm: 113808 Milliliter 03/30/2018 No longer Active cyanocobalamin (vit B-12) 1,000 mcg/mL injection solution RxNorm: 004554 Milliliter 03/16/2018 No longer Active cyanocobalamin (vit B-12) 1,000 mcg/mL injection solution RxNorm: 884450 Milliliter 03/02/2018 No longer Active cyanocobalamin (vit B-12) 1,000 mcg/mL injection solution RxNorm: 114794 Milliliter 02/08/2018 No longer Active cyanocobalamin (vit B-12) 1,000 mcg/mL injection solution RxNorm: 552530 Milliliter 01/24/2018 No longer Active cyanocobalamin (vit B-12) 1,000 mcg/mL injection solution RxNorm: 669596 Milliliter 01/10/2018 No longer Active cyanocobalamin (vit B-12) 1,000 mcg/mL injection solution RxNorm: 501260 Milliliter 12/27/2017 No longer Active cyanocobalamin (vit B-12) 1,000 mcg/mL injection solution RxNorm: 744001 1Milliliter 12/12/2017 No longer Active cyanocobalamin (vit B-12) 1,000 mcg/mL injection solution RxNorm: 194167 Milliliter 12/01/2017 No longer Active cyanocobalamin (vit B-12) 1,000 mcg/mL injection solution RxNorm: 664464 1Milliliter 11/17/2017 No longer Active cyanocobalamin (vit B-12) 1,000 mcg/mL injection solution RxNorm: 020835 1Milliliter 11/02/2017 No longer Active cyanocobalamin (vit B-12) 1,000 mcg/mL injection solution RxNorm: 212842 1Milliliter 10/20/2017 No longer Active cyanocobalamin (vit B-12) 1,000 mcg/mL injection solution RxNorm: 686613 Milliliter 10/06/2017 No longer Active cyanocobalamin (vit B-12) 1,000 mcg/mL injection solution RxNorm: 328764 Milliliter 09/21/2017 No longer Active Kenalog 40 mg/mL suspension for injection RxNorm: 1927001 Milliliter 09/15/2017 No longer Active cyanocobalamin (vit B-12) 1,000 mcg/mL injection solution RxNorm: 441475 Milliliter 09/07/2017 No longer Active cyanocobalamin (vit B-12) 1,000 mcg/mL injection solution RxNorm: 984243 Milliliter 08/24/2017 No longer Active cyanocobalamin (vit B-12) 1,000 mcg/mL injection solution RxNorm: 596366 Milliliter 07/06/2017 No longer Active cyanocobalamin (vit B-12) 1,000 mcg/mL injection solution RxNorm: 108335 Milliliter 06/20/2017 No longer Active Kenalog 40 mg/mL suspension for injection RxNorm: 6652836 1Milliliter 06/20/2017 No longer Active cyanocobalamin (vit B-12) 1,000 mcg/mL injection solution RxNorm: 858639 Milliliter 06/05/2017 No longer Active cyanocobalamin (vit B-12) 1,000 mcg/mL injection solution RxNorm: 904288 Milliliter 05/25/2017 No longer Active cyanocobalamin (vit B-12) 1,000 mcg/mL injection solution RxNorm: 411562 Milliliter 05/16/2017 No longer Active cyanocobalamin (vit B-12) 1,000 mcg/mL injection solution RxNorm: 450459 1Milliliter 05/01/2017 No longer Active cyanocobalamin (vit B-12) 1,000 mcg/mL injection solution RxNorm: 676929 Milliliter 04/18/2017 No longer Active cyanocobalamin (vit B-12) 1,000 mcg/mL injection solution RxNorm: 816578 Milliliter 04/06/2017 No longer Active cyanocobalamin (vit B-12) 1,000 mcg/mL injection solution RxNorm: 609042 Milliliter 03/22/2017 No longer Active cyanocobalamin (vit B-12) 1,000 mcg/mL injection solution RxNorm: 021028 Milliliter 03/09/2017 No longer Active cyanocobalamin (vit B-12) 1,000 mcg/mL injection solution RxNorm: 249266 Milliliter 02/23/2017 No longer Active cyanocobalamin (vit B-12) 1,000 mcg/mL injection solution RxNorm: 868185 Milliliter 02/09/2017 No longer Active cyanocobalamin (vit B-12) 1,000 mcg/mL injection solution RxNorm: 623176 Milliliter 01/23/2017 No longer Active cyanocobalamin (vit B-12) 1,000 mcg/mL injection solution RxNorm: 235338 Milliliter 01/10/2017 No longer Active cyanocobalamin (vit B-12) 1,000 mcg/mL injection solution RxNorm: 557629 1Milliliter 12/28/2016 No longer Active cyanocobalamin (vit B-12) 1,000 mcg/mL injection solution RxNorm: 115843 Milliliter 12/14/2016 No longer Active cyanocobalamin (vit B-12) 1,000 mcg/mL injection solution RxNorm: 230244 Milliliter 11/24/2016 No longer Active cyanocobalamin (vit B-12) 1,000 mcg/mL injection solution RxNorm: 261888 1Milliliter 11/07/2016 No longer Active cyanocobalamin (vit B-12) 1,000 mcg/mL injection solution RxNorm: 282720 Milliliter 10/24/2016 No longer Active cyanocobalamin (vit B-12) 1,000 mcg/mL injection solution RxNorm: 266439 1Milliliter 09/29/2016 No longer Active cyanocobalamin (vit B-12) 1,000 mcg/mL injection solution RxNorm: 689320 Milliliter 08/29/2016 No longer Active cyanocobalamin (vit B-12) 1,000 mcg/mL injection solution RxNorm: 380121 Milliliter 08/04/2016 No longer Active cyanocobalamin (vit B-12) 1,000 mcg/mL injection solution RxNorm: 617353 Milliliter 07/21/2016 No longer Active cyanocobalamin (vit B-12) 1,000 mcg/mL injection solution RxNorm: 668668 1Milliliter 07/05/2016 No longer Active cyanocobalamin (vit B-12) 1,000 mcg/mL injection solution RxNorm: 894774 1Milliliter 06/22/2016 No longer Active cyanocobalamin (vit B-12) 1,000 mcg/mL injection solution RxNorm: 343656 Milliliter 06/09/2016 No longer Active cyanocobalamin (vit B-12) 1,000 mcg/mL injection solution RxNorm: 029373 1Milliliter 05/25/2016 No longer Active cyanocobalamin (vit B-12) 1,000 mcg/mL injection solution RxNorm: 669824 Milliliter 05/10/2016 No longer Active cyanocobalamin (vit B-12) 1,000 mcg/mL injection solution RxNorm: 434981 Milliliter 04/26/2016 No longer Active cyanocobalamin (vit B-12) 1,000 mcg/mL injection solution RxNorm: 483426 Milliliter 04/11/2016 No longer Active cyanocobalamin (vit B-12) 1,000 mcg/mL injection solution RxNorm: 548201 Milliliter 03/31/2016 No longer Active cyanocobalamin (vit B-12) 1,000 mcg/mL injection solution RxNorm: 796893 1Milliliter 03/15/2016 No longer Active cyanocobalamin (vit B-12) 1,000 mcg/mL injection solution RxNorm: 733251 Milliliter 02/25/2016 No longer Active cyanocobalamin (vit B-12) 1,000 mcg/mL injection solution RxNorm: 091970 1Milliliter 02/02/2016 No longer Active cyanocobalamin (vit B-12) 1,000 mcg/mL injection solution RxNorm: 454893 Milliliter 01/18/2016 No longer Active cyanocobalamin (vit B-12) 1,000 mcg/mL injection solution RxNorm: 556557 Milliliter 12/29/2015 No longer Active cyanocobalamin (vit B-12) 1,000 mcg/mL injection solution RxNorm: 392083 Milliliter 12/08/2015 No longer Active cyanocobalamin (vit B-12) 1,000 mcg/mL injection solution RxNorm: 262817 Milliliter 11/23/2015 No longer Active cyanocobalamin (vit B-12) 1,000 mcg/mL injection solution RxNorm: 951794 Milliliter 11/11/2015 No longer Active cyanocobalamin (vit B-12) 1,000 mcg/mL injection solution RxNorm: 360361 1Milliliter 10/29/2015 No longer Active cyanocobalamin (vit B-12) 1,000 mcg/mL injection solution RxNorm: 972289 1Milliliter 10/12/2015 No longer Active cyanocobalamin (vit B-12) 1,000 mcg/mL injection solution RxNorm: 563078 1Milliliter 09/29/2015 No longer Active cyanocobalamin (vit B-12) 1,000 mcg/mL injection solution RxNorm: 538231 1Milliliter 09/17/2015 No longer Active cyanocobalamin (vit B-12) 1,000 mcg/mL injection solution RxNorm: 339444 1Milliliter 09/03/2015 No longer Active cyanocobalamin (vit B-12) 1,000 mcg/mL injection solution RxNorm: 640487 Milliliter 08/17/2015 No longer Active cyanocobalamin (vit B-12) 1,000 mcg/mL injection solution RxNorm: 679538 Milliliter 08/06/2015 No longer Active cyanocobalamin (vit B-12) 1,000 mcg/mL injection solution RxNorm: 976456 Milliliter 07/22/2015 No longer Active cyanocobalamin (vit B-12) 1,000 mcg/mL injection solution RxNorm: 450700 Milliliter 07/08/2015 No longer Active cyanocobalamin (vit B-12) 1,000 mcg/mL injection solution RxNorm: 611427 Milliliter 06/23/2015 No longer Active cyanocobalamin (vit B-12) 1,000 mcg/mL injection solution RxNorm: 071577 1Milliliter 06/08/2015 No longer Active cyanocobalamin (vit B-12) 1,000 mcg/mL injection solution RxNorm: 558624 Milliliter 05/27/2015 No longer Active cyanocobalamin (vit B-12) 1,000 mcg/mL injection solution RxNorm: 161805 1Milliliter 05/12/2015 No longer Active cyanocobalamin (vit B-12) 1,000 mcg/mL injection kit RxNorm: 938031 kit 04/30/2015 No longer Active cyanocobalamin (vit B-12) 1,000 mcg/mL injection solution RxNorm: 552402 Milliliter 04/16/2015 No longer Active cyanocobalamin (vit B-12) 1,000 mcg/mL injection solution RxNorm: 601584 Milliliter 04/02/2015 No longer Active cyanocobalamin (vit B-12) 1,000 mcg/mL injection solution RxNorm: 687826 Milliliter 03/18/2015 No longer Active cyanocobalamin (vit B-12) 1,000 mcg/mL injection solution RxNorm: 601333 Milliliter 03/03/2015 No longer Active cyanocobalamin (vit B-12) 1,000 mcg/mL injection solution RxNorm: 911572 Milliliter 02/18/2015 No longer Active cyanocobalamin (vit B-12) 1,000 mcg/mL injection solution RxNorm: 537748 Milliliter 02/04/2015 No longer Active cyanocobalamin (vit B-12) 1,000 mcg/mL injection solution RxNorm: 623798 Milliliter 01/22/2015 No longer Active cyanocobalamin (vit B-12) 1,000 mcg/mL injection solution RxNorm: 298531 Milliliter 01/08/2015 No longer Active cyanocobalamin (vit B-12) 1,000 mcg/mL injection solution RxNorm: 831246 Milliliter 12/25/2014 No longer Active cyanocobalamin (vit B-12) 1,000 mcg/mL injection solution RxNorm: 125929 Milliliter 12/10/2014 No longer Active cyanocobalamin (vit B-12) 1,000 mcg/mL injection solution RxNorm: 960465 Milliliter 11/26/2014 No longer Active cyanocobalamin (vit B-12) 1,000 mcg/mL injection kit RxNorm: 084827 Milliliter 11/12/2014 No longer Active cyanocobalamin (vit B-12) 1,000 mcg/mL injection solution RxNorm: 407773 Milliliter 10/28/2014 No longer Active Immunizations Vaccine [...] (3rd IS) 3.20 uIU/mL 02/26/2018 Free T4 Bzc045 FREE T4 0.99 ng/dL 02/26/2018 Cbc With [...] 90.1 fl 02/26/2018 Cbc With Differential Ord2 [place]% 10.3 % 02/26/2018 Cbc With Differential Ord2 [...] 1.80 K/ul 02/26/2018 Cbc With Differential Ord2 [place] ABS# 0.7 K/ul 02/26/2018 Cbc With Differential Ord2 Eos ABS# 0.2 K/ul 02/26/2018 Cbc With Differential Ord2 Baso ABS# 0.0 K/ul 02/26/2018 B12 Amn680 B12 889.00 pg/ml 02/26/2018 Digoxin Ord9 DIGOXIN 0.7 NG/ML 11/23/2017 Comp Metabolic Fgi752 NA 142 mEq/L 11/23/2017 Comp Metabolic Uwk659 K 4.9 mEq/L 11/23/2017 Comp Metabolic Lqr552 CL 112 mEq/L 11/23/2017 Comp Metabolic Com511 CO2 18.0 mEq/L 11/23/2017 Comp Metabolic Eho493 ANION GAP 17 11/23/2017 Comp Metabolic Ljz256 GLUCOSE 123 mg/dL 11/23/2017 Comp Metabolic Irr898 Creat 1.0 mg/dL 11/23/2017 Comp Metabolic Erl344 eGFR 59 ml/min/1.73m2 11/23/2017 Comp Metabolic Fkt569 BUN 24 mg/dL 11/23/2017 Comp Metabolic Whr644 B/C Ratio 25.0 Ratio 11/23/2017 Comp Metabolic Zme441 CALCIUM 9.4 mg/dL 11/23/2017 Comp Metabolic Jvw171 ALK PHOS 56 U/L 11/23/2017 Comp Metabolic Ldw405 AST(SGOT) 17 U/L 11/23/2017 Comp Metabolic Xbk432 ALT(SGPT) 16 U/L 11/23/2017 Comp Metabolic Rwh474 BILI T 0.7 mg/dL 11/23/2017 Comp Metabolic Din543 ALBUMIN 3.8 g/dL 11/23/2017 Comp Metabolic Dyp178 TPRO 6.2 g/dL 11/23/2017 Comp Metabolic Bng677 GLOB 2.4 g/dL 11/23/2017 Comp Metabolic Jyj844 A/G Ratio 1.6 Ratio 11/23/2017 Comp Metabolic Bwo006 Osmo 289 mOsmo 11/23/2017 Free T4 Mwm800 FREE T4 1.04 ng/dL 11/23/2017 %Hba1C Naj411 % HbA1c 03614- 6 6.4 % 11/23/2017 %Hba1C Rvn032 Gluc Ave 137 mg/dL 11/23/2017 Lipid Ord30 CHOL 179 mg/dL 11/23/2017 Lipid Ord30 HDL 51.0 mg/dl 11/23/2017 Lipid Ord30 TRIG 134 mg/dL 11/23/2017 Lipid Ord30 LDL 101 mg/dL 11/23/2017 Lipid Ord30 C/HDL 3.5 Ratio 11/23/2017 Tsh Ord6 TSH (3rd IS) 1.00 uIU/mL 11/23/2017 Microalbumin Gqe666 MicroAlb <0.7 mg/dL 11/23/2017 Comp Metabolic Eji737 NA 141 mEq/L 01/23/2017 Comp Metabolic Lts909 K 4.5 mEq/L 01/23/2017 Comp Metabolic Icv494 CL 107 mEq/L 01/23/2017 Comp Metabolic Flb489 CO2 21.0 mEq/L 01/23/2017 Comp Metabolic Oxz764 ANION GAP 18 01/23/2017 Comp Metabolic Vwf415 GLUCOSE 138 mg/dL 01/23/2017 Comp Metabolic Bgv540 Creat 1.0 mg/dL 01/23/2017 Comp Metabolic Vus049 eGFR 56 ml/min/1.73m2 01/23/2017 Comp Metabolic Rep704 BUN 26 mg/dL 01/23/2017 Comp Metabolic Jfr271 B/C Ratio 25.7 Ratio 01/23/2017 Comp Metabolic Zzq308 CALCIUM 9.0 mg/dL 01/23/2017 Comp Metabolic Zeq387 ALK PHOS 37 U/L 01/23/2017 Comp Metabolic Urf587 AST(SGOT) 20 U/L 01/23/2017 Comp Metabolic Xct187 ALT(SGPT) 25 U/L 01/23/2017 Comp Metabolic Her755 BILI T 0.9 mg/dL 01/23/2017 Comp Metabolic Ivl093 ALBUMIN 3.8 g/dL 01/23/2017 Comp Metabolic Hsc091 TPRO 6.5 g/dL 01/23/2017 Comp Metabolic Fmu873 GLOB 2.7 g/dL 01/23/2017 Comp Metabolic Wlb322 A/G Ratio 1.4 Ratio 01/23/2017 Comp Metabolic Yet892 Osmo 288 mOsmo 01/23/2017 Free T4 Vzd381 FREE T4 1.05 ng/dL 01/23/2017 %Hba1C Hcv256 % HbA1c 15017- 6 6.1 % 01/23/2017 %Hba1C Poe528 Gluc Ave 128 mg/dL 01/23/2017 Tsh Ord6 hTSH II 1.68 uIU/mL 01/23/2017 Culture Urine [id number] URINE CULTURE SEE NOTES 11/10/2016 Culture Urine [id number] Continued Results 11/10/2016 Urine Culture Ucult Complete [...] Ord15 CALCIUM 9.3 mg/dL 09/29/2016 Free T4 Vbx252 FREE T4 0.99 ng/dL 09/07/2016 Cbc With [...] 91.7 fl 09/07/2016 Cbc With Differential Ord2 [place]% 9.8 % 09/07/2016 Cbc With Differential Ord2 [...] 1.75 K/ul 09/07/2016 Cbc With Differential Ord2 [place] ABS# 0.6 K/ul 09/07/2016 Cbc With Differential Ord2 Eos ABS# 0.1 K/ul 09/07/2016 Cbc With Differential Ord2 Baso ABS# 0.0 K/ul 09/07/2016 Tsh Ord6 hTSH II 1.41 uIU/mL 09/07/2016 Culture Urine [id number] URINE CULTURE SEE NOTES 06/27/2016 Lipid Ord30 CHOL 196 mg/dL 06/22/2016 Lipid Ord30 HDL 63.0 mg/dl 06/22/2016 Lipid Ord30 TRIG 154 mg/dL 06/22/2016 Lipid Ord30 LDL 102 mg/dL 06/22/2016 Lipid Ord30 C/HDL 3.1 Ratio 06/22/2016 Hepatic Uso534 ALBUMIN 4.2 g/dL 06/22/2016 Hepatic Npi319 TPRO 7.0 g/dL 06/22/2016 Hepatic Qzt622 GLOB 2.8 g/dL 06/22/2016 Hepatic Ody589 A/G Ratio 1.5 Ratio 06/22/2016 Hepatic Fzx957 ALK PHOS 54 U/L 06/22/2016 Hepatic Inv899 ALT(SGPT) 30 U/L 06/22/2016 Hepatic Gop420 AST(SGOT) 24 U/L 06/22/2016 Hepatic Vmg179 BILI T 1.1 mg/dL 06/22/2016 Hepatic Ous617 BILI D 0.2 mg/dL 06/22/2016 Hepatic Zzv063 BILI I 0.9 mg/dL 06/22/2016 Comp Metabolic Qpc557 NA 139 mEq/L 06/14/2016 Comp Metabolic Zin891 K 4.6 mEq/L 06/14/2016 Comp Metabolic Stx399 CL 108 mEq/L 06/14/2016 Comp Metabolic Auj059 CO2 22.0 mEq/L 06/14/2016 Comp Metabolic Fxv539 ANION GAP 14 06/14/2016 Comp Metabolic Frz227 GLUCOSE 114 mg/dL 06/14/2016 Comp Metabolic Flo249 Creat 1.2 mg/dL 06/14/2016 Comp Metabolic Xvy436 eGFR 48 ml/min/1.73m2 06/14/2016 Comp Metabolic Acw412 BUN 24 mg/dL 06/14/2016 Comp Metabolic Pfl927 B/C Ratio 20.9 Ratio 06/14/2016 Comp Metabolic Cey018 CALCIUM 9.9 mg/dL 06/14/2016 Comp Metabolic Cmy897 ALK PHOS 47 U/L 06/14/2016 Comp Metabolic Pao324 AST(SGOT) 28 U/L 06/14/2016 Comp Metabolic Zpb372 ALT(SGPT) 32 U/L 06/14/2016 Comp Metabolic Wzu145 BILI T 0.9 mg/dL 06/14/2016 Comp Metabolic Nyn115 ALBUMIN 4.1 g/dL 06/14/2016 Comp Metabolic Qfy129 TPRO 6.9 g/dL 06/14/2016 Comp Metabolic Mks485 GLOB 2.8 g/dL 06/14/2016 Comp Metabolic Qfm305 A/G Ratio 1.5 Ratio 06/14/2016 Comp Metabolic Zhu724 Osmo 282 mOsmo 06/14/2016 Tsh Ord6 hTSH II 1.26 uIU/mL 06/14/2016 Free T4 Qiv560 FREE T4 1.09 ng/dL 06/14/2016 Tsh Ord6 hTSH II 0.28 uIU/mL 02/02/2016 Digoxin Ord9 DIGOXIN 0.7 NG/ML 02/02/2016 Free T4 Hho167 FREE T4 1.23 ng/dL 02/02/2016 Hepatic Hwk887 ALBUMIN 4.0 g/dL 02/02/2016 Hepatic Vyf509 TPRO 7.0 g/dL 02/02/2016 Hepatic Nec722 GLOB 3.0 g/dL 02/02/2016 Hepatic Ogy357 A/G Ratio 1.3 Ratio 02/02/2016 Hepatic Ccp494 ALK PHOS 57 U/L 02/02/2016 Hepatic Hog406 ALT(SGPT) 62 U/L 02/02/2016 Hepatic Ssx287 AST(SGOT) 54 U/L 02/02/2016 Hepatic Nfa039 BILI T 0.8 mg/dL 02/02/2016 Hepatic Sse798 BILI D 0.2 mg/dL 02/02/2016 Hepatic Fel614 BILI I 0.6 mg/dL 02/02/2016 Urine Culture Ucult Preliminary No Growth Day 1 11/25/2015 Urine Culture Ucult Complete No Growth Day 2 11/25/2015 Hepatic Sxb462 ALBUMIN 3.9 g/dL 11/11/2015 Hepatic Qpt692 TPRO 7.0 g/dL 11/11/2015 Hepatic Gtf937 GLOB 3.1 g/dL 11/11/2015 Hepatic Upr000 A/G Ratio 1.3 Ratio 11/11/2015 Hepatic Guj179 ALK PHOS 63 U/L 11/11/2015 Hepatic Uve379 ALT(SGPT) 107 U/L 11/11/2015 Hepatic Xsq134 AST(SGOT) 101 U/L 11/11/2015 Hepatic Lxs592 BILI T 0.6 mg/dL 11/11/2015 Hepatic Xzu248 BILI D 0.1 mg/dL 11/11/2015 Hepatic Esg284 BILI I 0.5 mg/dL 11/11/2015 Comp Metabolic Ntj007 NA 138 mEq/L 10/29/2015 Comp Metabolic Ggh243 K 5.0 mEq/L 10/29/2015 Comp Metabolic Oot769 CL 105 mEq/L 10/29/2015 Comp Metabolic Qqd197 CO2 23.0 mEq/L 10/29/2015 Comp Metabolic Ulo568 ANION GAP 15 10/29/2015 Comp Metabolic Upy202 GLUCOSE 105 mg/dL 10/29/2015 Comp Metabolic Pbz413 Creat 1.0 mg/dL 10/29/2015 Comp Metabolic Qqe085 eGFR 55 ml/min/1.73m2 10/29/2015 Comp Metabolic Plz251 BUN 20 mg/dL 10/29/2015 Comp Metabolic Fpw226 B/C Ratio 19.4 Ratio 10/29/2015 Comp Metabolic Hzm994 CALCIUM 8.8 mg/dL 10/29/2015 Comp Metabolic Roh320 ALK PHOS 56 U/L 10/29/2015 Comp Metabolic Izx851 AST(SGOT) 66 U/L 10/29/2015 Comp Metabolic Sch031 ALT(SGPT) 78 U/L 10/29/2015 Comp Metabolic Iwe047 BILI T 0.7 mg/dL 10/29/2015 Comp Metabolic Lim937 ALBUMIN 3.6 g/dL 10/29/2015 Comp Metabolic Vpv889 TPRO 6.6 g/dL 10/29/2015 Comp Metabolic Jlp562 GLOB 3.0 g/dL 10/29/2015 Comp Metabolic Ybe883 A/G Ratio 1.2 Ratio 10/29/2015 Comp Metabolic Mfw381 Osmo 279 mOsmo 10/29/2015 Comp Metabolic Vjw499 NA 136 mEq/L 09/03/2015 Comp Metabolic Rhq371 K 4.4 mEq/L 09/03/2015 Comp Metabolic Hfh423 CL 103 mEq/L 09/03/2015 Comp Metabolic Bfx669 CO2 24.0 mEq/L 09/03/2015 Comp Metabolic Uzb865 ANION GAP 13 09/03/2015 Comp Metabolic Its193 GLUCOSE 87 mg/dL 09/03/2015 Comp Metabolic Fcn421 Creat 1.1 mg/dL 09/03/2015 Comp Metabolic Npo533 eGFR 53 ml/min/1.73m2 09/03/2015 Comp Metabolic Enh322 BUN 17 mg/dL 09/03/2015 Comp Metabolic Oty862 B/C Ratio 16.2 Ratio 09/03/2015 Comp Metabolic Ntg565 CALCIUM 9.0 mg/dL 09/03/2015 Comp Metabolic Nhq328 ALK PHOS 55 U/L 09/03/2015 Comp Metabolic Fvh664 AST(SGOT) 83 U/L 09/03/2015 Comp Metabolic Alx602 ALT(SGPT) 126 U/L 09/03/2015 Comp Metabolic Hfq078 BILI T 0.9 mg/dL 09/03/2015 Comp Metabolic Wzx422 ALBUMIN 3.9 g/dL 09/03/2015 Comp Metabolic Eto672 TPRO 6.8 g/dL 09/03/2015 Comp Metabolic Moi451 GLOB 2.9 g/dL 09/03/2015 Comp Metabolic Tsa951 A/G Ratio 1.4 Ratio 09/03/2015 Comp Metabolic Wrk349 Osmo 273 mOsmo 09/03/2015 Total T3 Ord42 TT3 0.6 ng/ml 07/09/2015 Tsh Ord6 hTSH II 1.62 uIU/mL 07/09/2015 Total T3 Ord42 TT3 0.5 ng/ml 04/02/2015 Free T4 Kow653 FREE T4 1.23 ng/dL 04/02/2015 Tsh Ord6 [...] clear 05/19/2015 None Full Exam - General 1995 Ears/Nose/Throat [...] Procedure Codes Date THER/PROPH/DIAG INJ SC/IM CPT-4: 21341 04/26/2018 VITAMIN B12 INJECTION CPT- 4: J3420 04/26/2018 THER/PROPH/DIAG INJ SC/IM CPT-4: 56685 04/12/2018 THER/PROPH/DIAG INJ SC/IM CPT-4: 07816 03/30/2018 THER/PROPH/DIAG INJ SC/IM CPT-4: 26110 03/16/2018 VITAMIN B12 INJECTION CPT- 4: J3420 03/16/2018 ADMIN INFLUENZA VIRUS VAC CPT-4: G0008 03/16/2018 FLU VACC PRSV FREE INC ANTIG Formatting Model/CDA Sections, Assigned to/Nga Ojeda CPT-4: 30883Oncdzle 03/16/2018 THER/PROPH/DIAG INJ SC/IM CPT-4: 77110 03/02/2018 THER/PROPH/DIAG INJ SC/IM CPT-4: 79409 02/08/2018 THER/PROPH/DIAG INJ SC/IM CPT-4: 76618 01/24/2018 THER/PROPH/DIAG INJ SC/IM CPT-4: 11869 01/10/2018 THER/PROPH/DIAG INJ SC/IM CPT-4: 80252 12/27/2017 VITAMIN B12 INJECTION CPT- 4: J3420 12/27/2017 THER/PROPH/DIAG INJ SC/IM CPT-4: 97242 12/12/2017 THER/PROPH/DIAG INJ SC/IM CPT-4: 59572 12/01/2017 VITAMIN B12 INJECTION CPT- 4: J3420 12/01/2017 THER/PROPH/DIAG INJ SC/IM CPT-4: 79767 11/17/2017 THER/PROPH/DIAG INJ SC/IM CPT-4: 22342 11/02/2017 THER/PROPH/DIAG INJ SC/IM CPT-4: 98768 10/20/2017 THER/PROPH/DIAG INJ SC/IM CPT-4: 01105 10/06/2017 THER/PROPH/DIAG INJ SC/IM CPT-4: 31465 09/21/2017 TRIAMCINOLONE ACET INJ NOS CPT-4: J3301 09/15/2017 THER/PROPH/DIAG INJ SC/IM CPT-4: 03393 09/07/2017 THER/PROPH/DIAG INJ SC/IM CPT-4: 98036 08/24/2017 THER/PROPH/DIAG INJ SC/IM CPT-4: 04941 07/06/2017 THER/PROPH/DIAG INJ SC/IM CPT-4: 26982 06/20/2017 TRIAMCINOLONE ACET INJ NOS CPT-4: J3301 06/20/2017 PPPS, SUBSEQ VISIT CPT- 4: G0439 06/05/2017 THER/PROPH/DIAG INJ SC/IM CPT-4: 02616 06/05/2017 THER/PROPH/DIAG INJ SC/IM CPT-4: 91482 05/25/2017 VITAMIN B12 INJECTION CPT- 4: J3420 05/25/2017 THER/PROPH/DIAG INJ SC/IM CPT-4: 82803 05/16/2017 THER/PROPH/DIAG INJ SC/IM CPT-4: 42720 05/01/2017 THER/PROPH/DIAG INJ SC/IM CPT-4: 48561 04/18/2017 THER/PROPH/DIAG INJ SC/IM CPT-4: 11857 04/06/2017 ADMIN INFLUENZA VIRUS VAC CPT-4: G0008 03/22/2017 FLU VACC PRSV FREE INC ANTIG CPT-4: 51293 03/22/2017 THER/PROPH/DIAG INJ SC/IM CPT-4: 22317 03/09/2017 THER/PROPH/DIAG INJ SC/IM CPT-4: 89855 02/23/2017 THER/PROPH/DIAG INJ SC/IM CPT-4: 53941 02/09/2017 THER/PROPH/DIAG INJ SC/IM CPT-4: 09825 01/23/2017 THER/PROPH/DIAG INJ SC/IM CPT-4: 75864 01/10/2017 THER/PROPH/DIAG INJ SC/IM CPT-4: 57055 12/28/2016 THER/PROPH/DIAG INJ SC/IM CPT-4: 70432 12/14/2016 THER/PROPH/DIAG INJ SC/IM CPT-4: 12859 11/24/2016 URINALYSIS NONAUTO W/O SCOPE CPT-4: 21772 11/07/2016 THER/PROPH/DIAG INJ SC/IM CPT-4: 71889 11/07/2016 THER/PROPH/DIAG INJ SC/IM CPT-4: 45974 10/24/2016 THER/PROPH/DIAG INJ SC/IM CPT-4: 68954 09/29/2016 THER/PROPH/DIAG INJ SC/IM CPT-4: 94674 08/29/2016 THER/PROPH/DIAG INJ SC/IM CPT-4: 97340 08/04/2016 THER/PROPH/DIAG INJ SC/IM CPT-4: 87557 07/21/2016 THER/PROPH/DIAG INJ SC/IM CPT-4: 74351 07/05/2016 THER/PROPH/DIAG INJ SC/IM CPT-4: 18706 06/22/2016 URINALYSIS NONAUTO W/O SCOPE CPT-4: 69318 06/22/2016 THER/PROPH/DIAG INJ SC/IM CPT-4: 30191 06/09/2016 PPPS, SUBSEQ VISIT CPT- 4: G0439 05/30/2016 ADMIN PNEUMOCOCCAL VACCINE SNOMED CT: 98467897 CPT-4: G0009 05/25/2016 Pneumococcal Polysaccharide Vaccine, 23-Valent, Ad CPT-4: 90884 05/25/2016 THER/PROPH/DIAG INJ SC/IM CPT-4: 00282 05/25/2016 THER/PROPH/DIAG INJ SC/IM CPT-4: 51633 05/10/2016 TRIAMCINOLONE ACET INJ NOS CPT-4: J3301 04/26/2016 VITAMIN B12 INJECTION CPT- 4: J3420 04/26/2016 THER/PROPH/DIAG INJ SC/IM CPT-4: 83401 04/11/2016 THER/PROPH/DIAG INJ SC/IM CPT-4: 28028 03/31/2016 ADMIN INFLUENZA VIRUS VAC CPT-4: G0008 03/15/2016 FLU VACC 4 STEPHANIE [address] YRS PLUS IM SNOMED CT: [id number] CPT-4: 57886 03/15/2016 THER/PROPH/DIAG INJ SC/IM CPT-4: 76300 02/25/2016 THER/PROPH/DIAG INJ SC/IM CPT-4: 33278 02/02/2016 THER/PROPH/DIAG INJ SC/IM CPT-4: 47879 01/18/2016 VITAMIN B12 INJECTION CPT- 4: J3420 12/29/2015 THER/PROPH/DIAG INJ SC/IM CPT-4: 66628 12/29/2015 THER/PROPH/DIAG INJ SC/IM CPT-4: 18574 12/08/2015 THER/PROPH/DIAG INJ SC/IM CPT-4: 10745 11/23/2015 URINALYSIS NONAUTO W/O SCOPE CPT-4: 39796 11/23/2015 THER/PROPH/DIAG INJ SC/IM CPT-4: 15231 11/11/2015 THER/PROPH/DIAG INJ SC/IM CPT-4: 50169 10/29/2015 THER/PROPH/DIAG INJ SC/IM CPT-4: 36853 10/12/2015 VITAMIN B12 INJECTION CPT- 4: J3420 10/12/2015 THER/PROPH/DIAG INJ SC/IM CPT-4: 09830 09/29/2015 THER/PROPH/DIAG INJ SC/IM CPT-4: 61887 09/17/2015 THER/PROPH/DIAG INJ SC/IM CPT-4: 69095 09/03/2015 THER/PROPH/DIAG INJ SC/IM CPT-4: 81011 08/17/2015 THER/PROPH/DIAG INJ SC/IM CPT-4: 40635 08/06/2015 THER/PROPH/DIAG INJ SC/IM CPT-4: 30907 07/22/2015 THER/PROPH/DIAG INJ SC/IM CPT-4: 52650 07/08/2015 THER/PROPH/DIAG INJ SC/IM CPT-4: 01327 06/23/2015 THER/PROPH/DIAG INJ SC/IM CPT-4: 44917 06/08/2015 THER/PROPH/DIAG INJ SC/IM CPT-4: 56526 05/27/2015 DESTRUCT PREMALG LESION CPT-4: 53420 05/19/2015 DESTRUCT PREMALG LES 2-14 CPT-4: 34841 05/19/2015 THER/PROPH/DIAG INJ SC/IM CPT-4: 41598 05/12/2015 VITAMIN B12 INJECTION CPT- 4: J3420 05/12/2015 THER/PROPH/DIAG INJ SC/IM CPT-4: 59668 04/30/2015 VITAMIN B12 INJECTION CPT- 4: J3420 04/30/2015 THER/PROPH/DIAG INJ SC/IM CPT-4: 15135 04/16/2015 THER/PROPH/DIAG INJ SC/IM CPT-4: 51049 04/02/2015 VITAMIN B12 INJECTION CPT- 4: J3420 04/02/2015 THER/PROPH/DIAG INJ SC/IM CPT-4: 15117 03/18/2015 THER/PROPH/DIAG INJ SC/IM CPT-4: 68058 03/03/2015 THER/PROPH/DIAG INJ SC/IM CPT-4: 57771 02/18/2015 THER/PROPH/DIAG INJ SC/IM CPT-4: 84357 02/04/2015 VITAMIN B12 INJECTION CPT- 4: J3420 02/04/2015 THER/PROPH/DIAG INJ SC/IM CPT-4: 09243 01/22/2015 THER/PROPH/DIAG INJ SC/IM CPT-4: 12838 01/08/2015 VITAMIN B12 INJECTION CPT- 4: J3420 01/08/2015 THER/PROPH/DIAG INJ SC/IM CPT-4: 18195 12/25/2014 VITAMIN B12 INJECTION CPT- 4: J3420 12/25/2014 THER/PROPH/DIAG INJ SC/IM CPT-4: 39749 12/10/2014 VITAMIN B12 INJECTION CPT- 4: J3420 12/10/2014 THER/PROPH/DIAG INJ SC/IM CPT-4: 21420 11/26/2014 VITAMIN B12 INJECTION CPT- 4: J3420 11/26/2014 THER/PROPH/DIAG INJ SC/IM CPT-4: 89982 11/12/2014 VITAMIN B12 INJECTION CPT- 4: J3420 11/12/2014 THER/PROPH/DIAG INJ SC/IM CPT-4: 09552 10/28/2014 Vital Signs Date Vital 04/26/2018 Height: 5'6" 02/26/2018 Blood Pressure 1: 130/72 Code: 8480-6 BMI: 27.9 Code: 18316-8 Heart Rate 1: 72 bpm Height: 5'6" SpO2: 93% Weight: 173 lbs 12/12/2017 Blood Pressure 1: 126/74 Code: 8480-6 BMI: 27.4 Code: 42962-8 Heart Rate 1: 83 bpm Height: 5'6" SpO2: 98% Weight: 170 lbs 12/04/2017 Blood Pressure 1: 104/68 Code: 8480-6 BMI: 28.2 Code: 06816-5 Heart Rate 1: 85 bpm Height: 5'6" SpO2: 95% Weight: 175 lbs 11/20/2017 Blood Pressure 1: 130/68 Code: 8480-6 BMI: 28.4 Code: 60306-7 Heart Rate 1: 80 bpm Height: 5'6" SpO2: 99% Weight: 176 lbs 11/02/2017 Height: 5'6" 09/15/2017 Blood Pressure 1: 134/74 Code: 8480-6 BMI: 28.4 Code: 84618-2 Heart Rate 1: 88 bpm Height: 5'6" SpO2: 98% Weight: 176 lbs 09/07/2017 Blood Pressure 1: 124/64 Code: 8480-6 Heart Rate 1: 90 bpm Height: SpO2: 97% Weight: 08/30/2017 Blood Pressure 1: 140/76 Code: 8480-6 BMI: 28.4 Code: 71779-6 Heart Rate 1: 90 bpm Height: 5'6" SpO2: 94% Weight: 176 lbs 07/06/2017 Blood Pressure 1: 132/66 Code: 8480-6 BMI: 29.4 Code: 11526-0 Heart Rate 1: 85 bpm Height: 5'6" SpO2: 97% Weight: 182 lbs 06/20/2017 Blood Pressure 1: 134/86 Code: 8480-6 Heart Rate 1: 90 bpm Height: SpO2: 98% Weight: 06/05/2017 BMI: 29.1 Code: 90181-8 Height: 5'6" Weight: 180 lbs 05/25/2017 Blood Pressure 1: 126/76 Code: 8480-6 BMI: 29.1 Code: 10823-4 Heart Rate 1: 77 bpm Height: 5'6" SpO2: 97% Weight: 180 lbs 03/23/2017 Blood Pressure 1: 142/84 Code: 8480-6 BMI: 29.1 Code: 62196-9 Heart Rate 1: 91 bpm Height: 5'6" SpO2: 97% Weight: 180 lbs 01/23/2017 Blood Pressure 1: 150/90 Code: 8480-6 BMI: 29.9 Code: 66274-9 Heart Rate 1: 81 bpm Height: 5'6" SpO2: 97% Weight: 185 lbs 11/02/2016 Blood Pressure 1: 148/78 Code: 8480-6 BMI: 29.7 Code: 49750-9 Heart Rate 1: 87 bpm Height: 5'6" SpO2: 97% Weight: 184 lbs 09/29/2016 Blood Pressure 1: 128/78 Code: 8480-6 BMI: 29.7 Code: 90431-6 Heart Rate 1: 78 bpm Height: 5'6" SpO2: 98% Weight: 184 lbs 07/26/2016 Blood Pressure 1: 138/72 Code: 8480-6 BMI: 30.0 Code: 78492-0 Heart Rate 1: 85 bpm Height: 5'6" SpO2: 97% Weight: 186 lbs 05/30/2016 Blood Pressure 1: 132/76 Code: 8480-6 BMI: 30.0 Code: 80212-8 Heart Rate 1: 80 bpm Height: 5'6" SpO2: 98% Waist Measure (cm): 99 cm Weight: 186 lbs 05/25/2016 Blood Pressure 1: 132/76 Code: 8480-6 BMI: 30.0 Code: 71820-6 Heart Rate 1: 80 bpm Height: 5'6" SpO2: 96% Weight: 186 lbs 02/25/2016 Blood Pressure 1: 110/64 Code: 8480-6 Heart Rate 1: 82 bpm Height: SpO2: 96% Weight: 01/25/2016 Blood Pressure 1: 118/70 Code: 8480-6 BMI: 30.0 Code: 92454-9 Heart Rate 1: 78 bpm Height: 5'6" SpO2: 97% Weight: 186 lbs 11/11/2015 Blood Pressure 1: 128/82 Code: 8480-6 BMI: 29.2 Code: 59057-2 Heart Rate 1: 86 bpm Height: 5'6" SpO2: 96% Temperature: 36.4 (C) / 97.6 (F) Weight: 181 lbs 10/12/2015 Blood Pressure 1: 118/70 Code: 8480-6 BMI: 29.2 Code: 64333-5 Heart Rate 1: 81 bpm Height: 5'6" SpO2: 95% Weight: 181 lbs 09/03/2015 Blood Pressure 1: 138/78 Code: 8480-6 BMI: 29.9 Code: 21419-2 Heart Rate 1: 88 bpm Height: 5'6" SpO2: 97% Weight: 185 lbs 05/19/2015 Blood Pressure 1: 146/78 Code: 8480-6 BMI: 30.0 Code: 84611-6 Heart Rate 1: 66 bpm Height: 5'6" SpO2: 97% Weight: 186 lbs 05/12/2015 Blood Pressure 1: 120/70 Code: 8480-6 BMI: 29.9 Code: 10209-1 Heart Rate 1: 89 bpm Height: 5'6" SpO2: 95% Weight: 185 lbs 01/13/2015 Blood Pressure 1: 140/90 Code: 8480-6 BMI: 30.3 Code: 85382-5 Heart Rate 1: 84 bpm Height: 5'6" SpO2: 95% Weight: 188 lbs 12/16/2014 Blood Pressure 1: 140/82 Code: 8480-6 BMI: 29.5 Code: 55241-2 Heart Rate 1: 86 bpm Height: 5'6" [...] data Encounters Encounter Performer Location Codes Date [id number] EST. PATIENT, LEVEL III Diagnosis: Pain in left shoulder[ICD10: M25.512] Diagnosis: Pain in right shoulder[ICD10: M25.511] Yarely Vega MD, [facility] CPT-4: 21074 02/26/2018 ([id number] 35303 EST. PATIENT, LEVEL III Diagnosis: Nausea[ICD10: R11.0] Diagnosis: Cough[ICD10: R05] Diagnosis: 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 factor deficiency[ICD10: D51.0] Janet Vega MD, [facility] CPT-4: 46990 12/12/2017 ([id number]) 37902 EST. PATIENT, LEVEL IV Diagnosis: Acute bronchitis due to Hemophilus influenzae[ICD10: J20.1] Diagnosis: Cough[ICD10: R05] Yarely Vega MD, [facility] CPT-4: 25303 12/04/2017 ([id number]) 15637 EST. PATIENT, LEVEL IV Diagnosis: Essential (primary) hypertension[ICD10: I10] Diagnosis: Cough[ICD10: R05] Diagnosis: Chronic atrial fibrillation[ICD10: I48.2] Yarely Vega MD, [facility] CPT-4: 94885 11/20/2017 ([id number]) 86905 EST. PATIENT, LEVEL III Diagnosis: Cough[ICD10: R05] Diagnosis: Acute upper respiratory infection, unspecified[ICD10: J06.9] Janet Vega MD, [facility] CPT-4: 55967 09/15/2017 51659 EST. PATIENT, LEVEL III Diagnosis: Laceration without foreign body of right forearm, initial encounter[ICD10: S51.811A] Diagnosis: Other vitamin B12 deficiency anemias[ICD10: D51.8] Brianna Vega MD, [facility] CPT-4: 85202 09/07/2017 ([id number]) 06259 EST. PATIENT, LEVEL IV Diagnosis: Chronic atrial fibrillation[ICD10: I48.2] Diagnosis: Other allergic rhinitis[ICD10: J30.89] Diagnosis: Encounter for therapeutic drug level monitoring[ICD10: Z51.81] Yarely Vega MD, [facility] CPT-4: 28350 08/30/2017 ([id number]) 28106 EST. PATIENT, LEVEL IV Diagnosis: Atrophy of thyroid (acquired)[ICD10: E03.4] Diagnosis: Cough[ICD10: R05] Diagnosis: Laceration without foreign body of left forearm, initial encounter[ICD10: S51.812A] Diagnosis: Candidiasis of skin and nail[ICD10: B37.2] Diagnosis: Other vitamin B12 deficiency anemias[ICD10: D51.8] Diagnosis: Slow transit constipation[ICD10: K59.01] Yarely Vega MD, [facility] CPT-4: 63706 07/06/2017 11671 EST. PATIENT, LEVEL III Diagnosis: Other vitamin B12 deficiency anemias[ICD10: D51.8] Diagnosis: Acute laryngopharyngitis[ICD10: J06.0] Diagnosis: Other allergic rhinitis[ICD10: J30.89] Brianna Vega MD, [facility] CPT- 4: 89603 06/20/2017 ([id number]) 21244 EST. PATIENT, LEVEL IV Diagnosis: Essential (primary) hypertension[ICD10: I10] Diagnosis: Chronic atrial fibrillation[ICD10: I48.2] Diagnosis: Atrophy of thyroid (acquired)[ICD10: E03.4] Diagnosis: 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 factor deficiency[ICD10: D51.0] Yarely Vega MD, [facility] CPT-4: 15736 05/25/2017 [id number]) 34218 EST. 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 PATIENT, LEVEL IV Diagnosis: Type 2 diabetes mellitus without complications[ICD10: E11.9] Diagnosis: Essential (primary) hypertension[ICD10: I10] Diagnosis: Headache[ICD10: R51] Diagnosis: Atrophy of thyroid (acquired)[ICD10: E03.4] Diagnosis: Vitamin B12 deficiency anemia, unspecified[ICD10: D51.9] Yarely Vega MD, [facility] CPT-4: 03631 01/23/2017 58025 EST. PATIENT, LEVEL III Diagnosis: Low back pain[ICD10: M54.5] Diagnosis: Pain in thoracic spine[ICD10: M54.6] Brianna Vega MD, [facility] CPT- 4: 49008 11/02/2016 ([id number]) 25091 EST. PATIENT, LEVEL IV Diagnosis: Essential (primary) hypertension[ICD10: I10] Diagnosis: Other vitamin B12 deficiency anemias[ICD10: D51.8] Diagnosis: Generalized abdominal pain[ICD10: R10.84] Yarely Vega MD, [facility] CPT-4: 85949 09/29/2016 ([id number]) 21925 EST. PATIENT, LEVEL IV Diagnosis: Essential (primary) hypertension[ICD10: I10] Yarely Vega MD, [facility] CPT-4: 93056 07/26/2016 ([id number]) 26372 EST. PATIENT, LEVEL IV Diagnosis: Benign lipomatous neoplasm of skin and subcutaneous tissue of right leg[ICD10: D17.23] Diagnosis: Pain in right ankle and joints of right foot[ICD10: M25.571] Diagnosis: Encounter for immunization[ICD10: Z23] Diagnosis: Vitamin B12 deficiency anemia, unspecified[ICD10: D51.9] Yarely Vega MD, [facility] CPT-4: 71915 05/25/2016 65253 EST. PATIENT, LEVEL III Diagnosis: Other chest pain[ICD10: R07.89] Diagnosis: Other vitamin B12 deficiency anemias[ICD10: D51.8] Brianna Veag MD, [facility] CPT-4: 68355 02/25/2016 ([id number]) 33858 EST. 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 PATIENT, LEVEL III Diagnosis: Other vitamin B12 deficiency anemias[ICD10: D51.8] Diagnosis: Acute nasopharyngitis [common cold][ICD10: J00] Diagnosis: Other allergic rhinitis[ICD10: J30.89] Brianna Vega MD, [facility] CPT- 4: 78361 11/11/2015 ([id number]) 39910 EST. PATIENT, LEVEL IV Diagnosis: Essential tremor[ICD10: G25.0] Diagnosis: Chronic fatigue, unspecified[ICD10: R53.82] Diagnosis: Other hypersomnia[ICD10: G47.19] Diagnosis: Essential (primary) hypertension[ICD10: I10] Yarely Vega MD, [facility] CPT-4: 50270 10/12/2015 ([id number]) 07947 EST. PATIENT, LEVEL IV Diagnosis: Essential (primary) hypertension[ICD10: I10] Diagnosis: Chronic atrial fibrillation[ICD10: I48.2] Diagnosis: Abnormal levels of other serum enzymes[ICD10: R74.8] Diagnosis: Type 2 diabetes mellitus without complications[ICD10: E11.9] Diagnosis: Vitamin B12 deficiency anemia, unspecified[ICD10: D51.9] Yarely Vega MD, [facility] CPT-4: 70542 09/03/2015 ([id number]) 39858 EST. PATIENT, LEVEL III Diagnosis: Nausea[ICD10: R11.0] Diagnosis: Essential tremor[ICD10: G25.0] Diagnosis: Actinic keratosis[ICD10: L57.0] Yarely Vega MD, [facility] CPT-4: 96281 05/19/2015 ([id number]) 82471 EST. PATIENT, LEVEL IV Diagnosis: Vitamin B12 deficiency anemia, unspecified[ICD10: D51.9] Diagnosis: Chronic atrial fibrillation[ICD10: I48.2] Diagnosis: Headache[ICD10: R51] Diagnosis: Chronic fatigue, unspecified[ICD10: R53.82] Diagnosis: Cervicalgia[ICD10: M54.2] [facility] CPT-4: 31088 05/12/2015 ([id number] 44835 EST. PATIENT, LEVEL IV Diagnosis: ESSENTIAL HYPERTENSION[ICD9: 401.9] Diagnosis: Afib[ICD9: 427.31] Diagnosis: Anxiety[ICD9: 300.00] Diagnosis: Insomnia[ICD9: 780.52] [facility] CPT-4: 66846 01/13/2015 ([id number]) OFFICE VISIT, NEW - LEVEL 4 Diagnosis: Hypothyroidism[ICD9: 244.9] Diagnosis: DIABETES TYPE II[ICD9: 250.00] Diagnosis: ESSENTIAL HYPERTENSION[ICD9: 401.9] Diagnosis: Afib[ICD9: 427.31] Diagnosis: Anxiety[ICD9: 300.00] Diagnosis: B12 deficiency[ICD9: 266.2] [facility] CPT-4: 34430 12/16/2014 Plan of Care Planned Activity Notes [...] Summary Completed 03/02/2018 Appointment: Yarely Vega WPtel: [facility] (15 min) [facility] 02/26/2018 Patient Education: Patient Medication Summary Completed 02/26/2018 Care Plan: Referral Order SNOMED-CT : [id number] Pending 02/26/2018 Appointment: Injection 02/08/2018 Patient Education: Patient Medication Summary Completed 02/08/2018 Appointment: Injection 01/24/2018 Patient Education: Patient Medication Summary Completed 01/24/2018 Appointment: Injection 01/10/2018 Patient Education: Patient Medication Summary Completed 01/10/2018 Appointment: Injection 12/27/2017 Patient Education: Patient Medication Summary Completed 12/27/2017 App[facility]ment[phone] [facility] [place] (15 min) Moderate 12/26/2017 Appointment: Janet aFm WPtel: [phone] [phone] [place] (15 min) Moderate 12/12/2017 Patient Education: Patient Medication Summary Completed 12/12/2017 Appointment: Yarely Vega WPtel: [phone] [facility] [place] (15 min) Moderate 12/04/2017 Patient Education: Patient Medication Summary Completed 12/04/2017 Appointment: Injection 12/01/2017 Patient Education: Patient Medication Summary Completed 12/01/2017 Appointment: [facility] [phone] [facility] [place] [place] (15 min) Moderate 11/20/2017 Patient Education: [...] Summary Completed 09/21/2017 Appointment: [phone] [facility] [place] (15 min) Moderate 09/15/2017 Patient Education: Patient Medication Summary Completed 09/15/2017 Appointment: [facility]ega [facility]el[facility] [phone] [facility] [place] [place] (15 min) Moderate 09/11/2017 Appointment: Brianna Otoole WPtel: [phone] [facility] [place] (10 min) Simple 09/07/2017 Patient Education: Patient Medication Summary Completed 09/07/2017 Appointment: [facility]ega [facility]el[facility] [phone] [facility] [place] (15 min) Moderate 08/30/2017 Patient Education: Patient Medication Summary Completed 08/30/2017 Appointment: Injection 08/24/2017 Appointment: [facility]el[facility] [phone] [facility] [place] (15 min) Moderate 08/24/2017 Patient Education: Patient Medication Summary Completed 08/24/2017 Appointment: [facility]ega [facility]el[facility] [phone] [facility] [place] (15 min) Moderate 07/06/2017 Patient Education: Patient Medication Summary Completed 07/06/2017 Appointment: Bri[facility] Otoole WPtel[facility] [phone] [facility] (15 min) Moderate 06/20/2017 Patient Education: Patient Medication Summary Completed 06/20/2017 Appointment: Injection 06/05/2017 Appointment: Brianna Otoole WPtel: [facility] MCR - Annual Wellness Visit 06/05/2017 Patient Education: Patient Medication Summary Completed 06/05/2017 Appointment: Yarely Vega WPtel: [facility] (15 min) Moderate 05/25/2017 Patient Education: Patient Medication Summary Completed 05/25/2017 Patient Education: Hypertension Completed 05/25/2017 Appointment: Injection 05/16/2017 Patient Education: Patient Medication Summary Completed 05/16/2017 Appointment: Injection 05/01/2017 Patient Education: Patient Medication Summary Completed 05/01/2017 Appointment: Injection 04/18/2017 Patient Education: Patient Medication Summary Completed 04/18/2017 Appointment: Injection 04/06/2017 Patient Education: Patient Medication Summary Completed 04/06/2017 Appointment: Yarely Vega WPtel: [facility] [place] (15 min) Moderate 03/23/2017 Patient Education: Patient Medication Summary Completed 03/23/2017 Appointment: Injection 03/22/2017 Patient Education: Patient Medication Summary Completed 03/22/2017 Appointment: Injection 03/09/2017 Patient Education: Patient Medication Summary Completed 03/09/2017 Appointment: Injection 02/23/2017 Patient Education: Patient Medication Summary Completed 02/23/2017 Appointment: Injection 02/09/2017 Appointment: Nurse Visit 02/09/2017 Patient Education: Patient Medication Summary Completed 02/09/2017 Appointment: [phone] [place] [place] (15 min) Moderate 01/23/2017 Patient Education: [...] Summary Completed 11/07/2016 Appointment: Brianna Otoole WPtel: [facility] [place] (15 min) Moderate 11/02/2016 Patient Education: Patient Medication Summary Completed 11/02/2016 Appointment: Injection 10/24/2016 Patient Education: Patient Medication Summary Completed 10/24/2016 Appointment: [phone] [place] [place] (15 min) Moderate 09/29/2016 Patient Education: Patient Medication Summary Completed 09/29/2016 Appointment: [facility]ega [phone] [place] [place] ([place] min) Moderate 09/27/2016 App[facility]ment: [phone] [place] [place] ([place] min) Moderate 09/20/2016 Appointment: [facility]ega [phone] [place] [place] ([place] min) Moderate 09/20/2016 Patient Education: Patient Medication Summary Completed 09/06/2016 Appointment: [phone] [place] (15 min) Moderate 08/30/2016 Appointment: Injection 08/29/2016 Patient Education: Patient Medication Summary Completed 08/29/2016 Appointment: Injection 08/04/2016 Patient Education: Patient Medication Summary Completed 08/04/2016 Appointment: [facility]ega [phone] [facility] [place] (15 min) Moderate 07/26/2016 Patient [...] Summary Completed 06/09/2016 Appointment: Brianna Otoole WPtel: [facility] M[facility] - Annual Wellness Visit 05/30/2016 Patient Education: Patient Medication Summary Completed 05/30/2016 Patient Education: Obesity Completed 05/30/2016 Appointment: Yarely Vega WPtel: [facility] [place] (15 min) Moderate 05/25/2016 Patient Education: Patient Medication Summary Completed 05/25/2016 Patient Education: Obesity Completed 05/25/2016 Care Plan: Referral Order SNOMED-CT : [id number] Pending 05/25/2016 Appointment: Injection 05/10/2016 Patient Education: Patient Medication Summary Completed 05/10/2016 Appointment: Injection 04/26/2016 Patient Education: Patient Medication Summary Completed 04/26/2016 Appointment: Injection 04/11/2016 Patient Education: Patient Medication Summary Completed 04/11/2016 Appointment: Injection 03/31/2016 Patient Education: Patient Medication Summary Completed 03/31/2016 Patient Education: Patient Medication Summary Completed 03/22/2016 Care Plan[id number] Pending 03/22/2016 Appointment: Injection 03/15/2016 Patient Education: Patient Medication Summary Completed 03/15/2016 Appointment: Bri[facility] Otoole [phone] [facility] (15 min) Moderate 02/25/2016 Patient Education: Patient [...] Summary Completed 10/29/2015 Appointment: Yarely Vega [facility]Ptel: [facility] [place] (15 min) Moderate 10/12/2015 Patient [...] Completed 08/17/2015 Appointment: [facility]are[facility]ega [phone] [place] (15 min) Moderate 08/11/2015 Appointment: Injection 08/06/2015 Patient Education: Patient Medication Summary Completed 08/06/2015 Patient Education: Patient Medication Summary Completed 07/22/2015 Patient Education: Patient Medication Summary Completed 07/08/2015 Appointment: Injection 06/23/2015 Patient Education: Patient Medication Summary Completed 06/23/2015 Appointment: Injection 06/08/2015 Patient Education: Patient Medication Summary Completed 06/08/2015 Appointment: Injection 05/27/2015 Patient Education: Patient Medication Summary Completed 05/27/2015 Appointment: Yaerly Vega WPtel: [facility] [place] (30 min) [facility] 05/19/2015 Patient Education: Patient Medication Summary [...] Summary Completed 01/22/2015 Appointment: Yarely Vega WPtel: [facility]5 [facility] (15 min) Moderate 01/13/2015 Patient Education: Patient Medication Summary Completed 01/13/2015 Patient Education: Hypertension Completed 01/13/2015 Appointment: Injection 01/08/2015 Patient Education: Patient Medication Summary Completed 01/08/2015 Appointment: Injection 12/25/2014 Patient Education: Patient Medication Summary Completed 12/25/2014 Appointment: Janet Fam WPtel: [phone] [place] New Patient 12/16/2014 Patient Education: Patient Medication Summary Completed 12/16/2014 Appointment: Injection 12/10/2014 Patient Education: Patient Medication Summary Completed 12/10/2014 Appointment: Injection 11/26/2014 Patient Education: Patient Medication Summary Completed 11/26/2014 Patient Education: Patient Medication Summary Completed 11/12/2014 Appointment: Nurse Visit 10/28/2014 Patient Education: Patient Medication Summary Completed 10/28/2014 Appointment: Injection 10/14/2014 Referral: eGnaro Bravo Referral Appointment Requested Referral: Car Pollard Referral Appointment Requested Instructions No Instructions
--- OUTSIDE RECORDS SUMMARY | 2018-12-05 20:19 | XMS REPORT | CCD ---
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 Name Role Phone PP Unavailable CCM Unavailable Summary Purpose Interface Exchange Insurance Providers Payer name Policy type / Coverage type Covered democrat ID Effective Begin Date Effective End Date WPS Medicare Part B Medicare Part B [id number] Unknown Principal Life Insurance Medicare Part B [id number] Unknown Family history Brother Diagnosis Age At Onset Heart Attack Unknown Mother Diagnosis Age At Onset Hypertension Unknown kidney disease Unknown Stroke Unknown Father Diagnosis Age At Onset Arthritis Unknown Social History Social History Element Codes Description Effective Dates Employment Unknown Retired worked at [employer] 11/20/2017 Marital status Unknown Single 12/16/[address]: 8147156 Former smoker 12/16/[address]: 973049231 Never drinks alcohol 12/16/2014 Allergies, Adverse Reactions, Alerts Substance Reaction Codes Entered Date Inactivated Date Status CODEINE RxNorm: 2670 05/25/2016 No Inactive Date Active ciprofloxacin RxNorm: 86318 12/16/2014 No Inactive Date Active MORPHINE SULFATE [...] hydrocodone 5 mg-acetaminophen 325 mg tablet RxNorm: 056865 1-2 Tablet(s) PO Q6 as needed for pain 04/25/2018 05/24/2018 Active cyanocobalamin (vit B-12) 1,000 mcg/mL injection solution RxNorm: 354904 Milliliter(s) Inj 04/12/2018 04/12/2018 Inactive Topamax 25 mg tablet RxNorm: 271713 1 Tablet(s) PO BID 04/09/2018 08/06/2018 Active Generic For:TOPAMAX 25MG 12/06/2016 9:15:13 AM Zoloft 50 mg tablet RxNorm: 636179 TAKE 1 TABLET BY MOUTH ONCE DAILY 04/04/2018 12/29/2018 Active Generic For:ZOLOFT 50MG 04/04/2018 9:13:25 AM cyanocobalamin (vit B-12) 1,000 mcg/mL injection solution RxNorm: 207821 Milliliter(s) Inj 03/30/2018 03/30/2018 Inactive levothyroxine 125 mcg tablet RxNorm: 229133 TAKE 1 TABLET BY MOUTH EVERY DAY 03/26/2018 09/21/2018 Active Generic For:SYNTHROID 125MCG TAB 03/26/2018 9:15:59 AM liothyronine 5 mcg tablet RxNorm: 248132 TAKE 1 TABLET BY MOUTH TWICE DAILY 03/26/2018 09/21/2018 Active Generic For:CYTOMEL 5MCG 03/26/2018 9:15:54 AM hydrocodone 5 mg-acetaminophen 325 mg tablet RxNorm: 056813 1-2 Tablet(s) PO Q6 as needed for pain 03/19/2018 04/17/2018 Inactive cyanocobalamin (vit B-12) 1,000 mcg/mL injection solution RxNorm: 525500 Milliliter(s) Inj 03/16/2018 03/16/2018 Inactive Flonase Allergy Relief 50 mcg/actuation nasal spray,suspension RxNorm: 6235054 1 [place] NASAL BID 03/05/2018 07/02/2018 Active cyanocobalamin (vit B-12) 1,000 mcg/mL injection solution RxNorm: 146996 Milliliter(s) Inj 03/02/2018 03/02/2018 Inactive alprazolam 0.25 mg tablet RxNorm: 379156 1 Tablet(s) PO BID 02/28/2018 05/28/2018 Active cyanocobalamin (vit B-12) 1,000 mcg/mL injection solution RxNorm: 178342 Milliliter(s) Inj 02/08/2018 02/08/2018 Inactive albuterol sulfate 2.5 mg/3 mL (0.083 %) solution for nebulization RxNorm: 293233 3 Milliliter(s) INH Q6 PRN 01/24/2018 No Stop Date Active cyanocobalamin (vit B-12) 1,000 mcg/mL injection solution RxNorm: 758416 Milliliter(s) Inj 01/24/2018 01/24/2018 Inactive Claritin 10 mg tablet RxNorm: 320002 1 Tablet(s) PO daily 01/15/2018 05/14/2018 Active cyanocobalamin (vit B-12) 1,000 mcg/mL injection solution RxNorm: 407896 Milliliter(s) Inj 01/10/2018 01/10/2018 Inactive hydrocodone 5 mg-acetaminophen 325 mg tablet RxNorm: 784460 1-2 Tablet(s) PO Q6 as needed for pain 01/09/2018 02/07/2018 Inactive cyanocobalamin (vit B-12) 1,000 mcg/mL injection solution RxNorm: 421794 Milliliter(s) Inj 12/27/2017 12/27/2017 Inactive cyanocobalamin (vit B-12) 1,000 mcg/mL injection solution RxNorm: 246186 1 Milliliter(s) Inj 12/12/2017 12/12/2017 Inactive Zofran ODT 4 mg disintegrating tablet RxNorm: 282608 1 Tablet(s) PO TID as needed 12/08/2017 12/09/2017 Inactive hydrocodone 2.5 mg-guaifenesin 200 mg/5 mL oral solution RxNorm: 612732 5 Milliliter(s) PO 12/04/2017 No Stop Date Active doxycycline hyclate 100 mg capsule RxNorm: 3255103 1 Capsule(s) PO BID 12/04/2017 12/13/2017 Inactive cyanocobalamin (vit B-12) 1,000 mcg/mL injection solution RxNorm: 455698 Milliliter(s) Inj 12/01/2017 12/01/2017 Inactive Flonase Allergy Relief 50 mcg/actuation nasal spray,suspension RxNorm: 5550253 1 [place] NASAL BID 11/20/2017 2018 Inactive cyanocobalamin (vit B-12) 1,000 mcg/mL injection solution RxNorm: 687468 1 Milliliter(s) Inj 11/17/2017 11/17/2017 Inactive hydrocodone 5 mg-acetaminophen 325 mg tablet RxNorm: 022032 1-2 Tablet(s) PO Q6 as needed for pain 11/16/2017 12/15/2017 Inactive cyanocobalamin (vit B-12) 1,000 mcg/mL injection solution RxNorm: 536879 1 Milliliter(s) Inj 11/02/2017 11/02/2017 Inactive hydrocodone 5 mg-acetaminophen 325 mg tablet RxNorm: 422090 1-2 Tablet(s) PO Q6 as needed for pain 10/25/2017 11/15/2017 Inactive Claritin 10 mg tablet RxNorm: 644634 1 Tablet(s) PO daily 10/25/2017 11/19/2017 Inactive albuterol sulfate 2.5 mg/3 mL (0.083 %) solution for nebulization RxNorm: 071262 3 Milliliter(s) INH Q6 PRN 10/25/2017 01/23/2018 Inactive Claritin 10 mg tablet RxNorm: 281478 1 Tablet(s) PO daily 10/25/2017 10/24/2017 Inactive cyanocobalamin (vit B-12) 1,000 mcg/mL injection solution RxNorm: 153440 1 Milliliter(s) Inj 10/20/2017 10/20/2017 Inactive Zoloft 50 mg tablet RxNorm: 122591 TAKE 1 TABLET BY MOUTH ONCE DAILY 10/13/2017 04/03/2018 Inactive Generic For:ZOLOFT 50MG 10/13/2017 8:59:44 AM cyanocobalamin (vit B-12) 1,000 mcg/mL injection solution RxNorm: 070063 Milliliter(s) Inj 10/06/2017 10/06/2017 Inactive liothyronine 5 mcg tablet RxNorm: 069574 TAKE 1 TABLET BY MOUTH TWICE DAILY 10/03/2017 03/25/2018 Inactive Generic For:CYTOMEL 5MCG 10/03/2017 9:13:38 AM cyanocobalamin (vit B-12) 1,000 mcg/mL injection solution RxNorm: 687730 Milliliter(s) Inj 09/21/2017 09/21/2017 Inactive albuterol sulfate 2.5 mg/3 mL (0.083 %) solution for nebulization RxNorm: 068580 3 Milliliter(s) INH Q6 PRN 09/21/2017 10/24/2017 Inactive hydrocodone 5 mg-acetaminophen 325 mg tablet RxNorm: 216027 1-2 Tablet(s) PO Q6 as needed for pain 09/21/2017 10/20/2017 Inactive Kenalog 40 mg/mL suspension for injection RxNorm: 0505078 Milliliter(s) Inj 09/15/2017 09/15/2017 Inactive Keflex 500 mg capsule RxNorm: 968069 1 Capsule(s) PO TID 09/07/2017 09/16/2017 Inactive Please deliver to patient cyanocobalamin (vit B-12) 1,000 mcg/mL injection solution RxNorm: 099374 Milliliter(s) Inj 09/07/2017 09/07/2017 Inactive Aricept 10 mg tablet RxNorm: 331278 1 Tablet(s) PO daily 09/06/2017 08/31/2018 Active alprazolam 0.25 mg tablet RxNorm: 182437 1 Tablet(s) PO BID 09/06/2017 02/27/2018 Inactive hydrocodone 5 mg-acetaminophen 325 mg tablet RxNorm: 251411 1-2 Tablet(s) PO Q6 as needed for pain 08/24/2017 09/20/2017 Inactive cyanocobalamin (vit B-12) 1,000 mcg/mL injection solution RxNorm: 915560 Milliliter(s) Inj 08/24/2017 08/24/2017 Inactive Norvasc 5 mg tablet RxNorm: 175416 1 Tablet(s) PO daily 08/18/2017 08/12/2018 Active nystatin 100,000 unit/gram topical powder RxNorm: 643402 1 Gram(s) TOP QID 08/17/2017 08/26/2017 Inactive hydrocodone 5 mg-acetaminophen 325 mg tablet RxNorm: 077449 1-2 Tablet(s) PO Q6 as needed for pain 07/25/2017 08/23/2017 Inactive Tamiflu 75 mg capsule RxNorm: 437415 1 Capsule(s) PO BID 07/24/2017 12/11/2017 Inactive nystatin 100,000 unit/gram topical powder RxNorm: 323416 1 Gram(s) TOP QID 07/14/2017 07/22/2017 Inactive levothyroxine 125 mcg tablet RxNorm: 784366 Tablet(s) 1 Tablet(s) PO daily 07/10/2017 01/05/2018 Inactive nystatin 100,000 unit/gram topical powder RxNorm: 977303 1 Gram(s) TOP QID 07/06/2017 07/13/2017 Inactive cyanocobalamin (vit B-12) 1,000 mcg/mL injection solution RxNorm: 660088 Milliliter(s) Inj 07/06/2017 07/06/2017 Inactive Kenalog 40 mg/mL suspension for injection RxNorm: 4682989 1 Milliliter(s) Inj 06/20/2017 06/20/2017 Inactive doxycycline hyclate 100 mg capsule RxNorm: 3392591 1 Capsule(s) PO BID 06/20/2017 06/26/2017 Inactive cyanocobalamin (vit B-12) 1,000 mcg/mL injection solution RxNorm: 993414 Milliliter(s) Inj 06/20/2017 06/20/2017 Inactive Mobic 15 mg tablet RxNorm: 464990 1 Tablet(s) PO daily 06/14/2017 06/08/2018 Active Keflex 500 mg capsule RxNorm: 631198 1 Capsule(s) PO TID 06/14/2017 06/23/2017 Inactive Please deliver to patient cyanocobalamin (vit B-12) 1,000 mcg/mL injection solution RxNorm: 749987 Milliliter(s) Inj 06/05/2017 06/05/2017 Inactive buspirone 15 mg tablet RxNorm: 833368 TAKE 1 TABLET BY MOUTH TWICE DAILY 05/31/2017 05/25/2018 Active Generic For:BUSPAR 15MG 05/31/2017 9:19:20 AM cyanocobalamin (vit B-12) 1,000 mcg/mL injection solution RxNorm: 440790 Milliliter(s) Inj 05/25/2017 05/25/2017 Inactive hydrocodone 5 mg-acetaminophen 325 mg tablet RxNorm: 654418 1-2 Tablet(s) PO Q6 as needed for pain 05/25/2017 06/23/2017 Inactive amiodarone 200 mg tablet RxNorm: 893469 1/2 Tablet(s) PO daily 05/22/2017 No Stop Date Active cardiology decreased to 100mg daily cyanocobalamin (vit B-12) 1,000 mcg/mL injection solution RxNorm: 087644 Milliliter(s) Inj 05/16/2017 05/16/2017 Inactive Zofran ODT 4 mg disintegrating tablet RxNorm: 037767 1 Tablet(s) PO TID as needed 05/03/2017 05/04/2017 Inactive hydrocodone 5 mg-acetaminophen 325 mg tablet RxNorm: 211284 1-2 Tablet(s) PO Q6 as needed for pain 05/01/2017 05/05/2017 Inactive cyanocobalamin (vit B-12) 1,000 mcg/mL injection solution RxNorm: 349427 1 Milliliter(s) Inj 05/01/2017 05/01/2017 Inactive cyanocobalamin (vit B-12) 1,000 mcg/mL injection solution RxNorm: 037565 INJECT ONE 1 ML EVERY TWO WEEKS 04/26/2017 12/04/2018 Active 04/26/2017 9:08:52 AM Zoloft 50 mg tablet RxNorm: 042857 Tablet(s) TAKE 1 TABLET BY MOUTH DAILY 04/25/2017 10/12/2017 Inactive Generic For:ZOLOFT 50MG cyanocobalamin (vit B-12) 1,000 mcg/mL injection solution RxNorm: 118628 Milliliter(s) Inj 04/18/2017 04/18/2017 Inactive liothyronine 5 mcg tablet RxNorm: 588238 1 Tablet(s) PO BID 04/13/2017 10/02/2017 Inactive cyanocobalamin (vit B-12) 1,000 mcg/mL injection solution RxNorm: 975159 Milliliter(s) Inj 04/06/2017 04/06/2017 Inactive hydrocodone 5 mg-acetaminophen 325 mg tablet RxNorm: 482163 1-2 Tablet(s) PO Q6 as needed for pain 04/06/2017 04/10/2017 Inactive cyanocobalamin (vit B-12) 1,000 mcg/mL injection solution RxNorm: 455739 Milliliter(s) Inj 03/22/2017 03/22/2017 Inactive alprazolam 0.25 mg tablet RxNorm: 200341 1 Tablet(s) PO BID 03/17/2017 12/11/2017 Inactive alprazolam 0.25 mg tablet RxNorm: 223610 1 Tablet(s) PO BID 03/16/2017 09/05/2017 Inactive hydrocodone 5 mg-acetaminophen 325 mg tablet RxNorm: 159071 1-2 Tablet(s) PO Q6 as needed for pain 03/09/2017 03/13/2017 Inactive cyanocobalamin (vit B-12) 1,000 mcg/mL injection solution RxNorm: 061786 Milliliter(s) Inj 03/09/2017 03/09/2017 Inactive cyanocobalamin (vit B-12) 1,000 mcg/mL injection solution RxNorm: 675616 Milliliter(s) Inj 02/23/2017 02/23/2017 Inactive cyanocobalamin (vit B-12) 1,000 mcg/mL injection solution RxNorm: 137833 Milliliter(s) Inj 02/09/2017 02/09/2017 Inactive hydrocodone 5 mg-acetaminophen 325 mg tablet RxNorm: 872885 1-2 Tablet(s) PO Q6 as needed for pain 02/08/2017 02/12/2017 Inactive Topamax 25 mg tablet RxNorm: 731681 1 Tablet(s) PO BID 01/23/2017 05/22/2017 Inactive Generic For:TOPAMAX 25MG 12/06/2016 9:15:13 AM cyanocobalamin (vit B-12) 1,000 mcg/mL injection solution RxNorm: 537764 Milliliter(s) Inj 01/23/2017 01/23/2017 Inactive cyanocobalamin (vit B-12) 1,000 mcg/mL injection solution RxNorm: 123497 Milliliter(s) Inj 01/10/2017 01/10/2017 Inactive hydrocodone 5 mg-acetaminophen 325 mg tablet RxNorm: 913298 1-2 Tablet(s) PO Q6 as needed for pain 01/09/2017 01/13/2017 Inactive cyanocobalamin (vit B-12) 1,000 mcg/mL injection solution RxNorm: 589436 1 Milliliter(s) Inj 12/28/2016 12/28/2016 Inactive cyanocobalamin (vit B-12) 1,000 mcg/mL injection solution RxNorm: 981347 Milliliter(s) Inj 12/14/2016 12/14/2016 Inactive buspirone 15 mg tablet RxNorm: 660131 1 Tablet(s) PO BID 12/12/2016 05/30/2017 Inactive hydrocodone 5 mg-acetaminophen 325 mg tablet RxNorm: 815127 1-2 Tablet(s) PO Q6 as needed for pain 12/08/2016 12/12/2016 Inactive Topamax 25 mg tablet RxNorm: 832266 TAKE 1 TABLET BY MOUTH EVERY DAY AT BEDTIME 12/06/2016 01/22/2017 Inactive Generic For:TOPAMAX 25MG 12/06/2016 9:15:13 AM Lac-Hydrin Five 5 % lotion RxNorm: 492644 1 Gram(s) TOP daily 12/02/2016 01/30/2017 Inactive cyanocobalamin (vit B-12) 1,000 mcg/mL injection solution RxNorm: 368247 Milliliter(s) Inj 11/24/2016 11/24/2016 Inactive Ceftin 500 mg tablet RxNorm: 297387 1 Tablet(s) PO BID 11/11/2016 06/13/2017 Inactive Cipro 500 mg tablet RxNorm: 919387 1 Tablet(s) PO BID 11/11/2016 11/10/2016 Inactive Cipro 500 mg tablet RxNorm: 606323 1 Tablet(s) PO BID 11/11/2016 11/11/2016 Inactive cyanocobalamin (vit B-12) 1,000 mcg/mL injection solution RxNorm: 431759 1 Milliliter(s) Inj 11/07/2016 11/07/2016 Inactive hydrocodone 5 mg-acetaminophen 325 mg tablet RxNorm: 886256 1-2 Tablet(s) PO Q6 as needed for pain 11/02/2016 11/06/2016 Inactive cyanocobalamin (vit B-12) 1,000 mcg/mL injection solution RxNorm: 497265 Milliliter(s) Inj 10/24/2016 10/24/2016 Inactive levothyroxine 125 mcg tablet RxNorm: 784843 Tablet(s) 1 Tablet(s) PO daily 10/24/2016 04/21/2017 Inactive liothyronine 5 mcg tablet RxNorm: 667448 1 Tablet(s) PO BID 10/24/2016 04/12/2017 Inactive hydrocodone 5 mg-acetaminophen 325 mg tablet RxNorm: 737806 1-2 Tablet(s) PO Q6 as needed for pain 10/17/2016 10/21/2016 Inactive Keflex 500 mg capsule RxNorm: 048196 1 Capsule(s) PO TID 10/07/2016 10/06/2016 Inactive Keflex 500 mg capsule RxNorm: 332281 1 Capsule(s) PO TID 10/07/2016 10/16/2016 Inactive Please deliver to patient cyanocobalamin (vit B-12) 1,000 mcg/mL injection solution RxNorm: 825328 1 Milliliter(s) Inj 09/29/2016 09/29/2016 Inactive alprazolam 0.25 mg tablet RxNorm: 908543 1 Tablet(s) PO BID 09/20/2016 03/16/2017 Inactive Cozaar 100 mg tablet RxNorm: 853111 1 Tablet(s) PO daily 09/14/2016 No Stop Date Active metoprolol tartrate 50 mg tablet RxNorm: 041209 1/2 Tablet(s) PO BID 09/14/2016 12/12/2016 Inactive Zoloft 50 mg tablet RxNorm: 503182 Tablet(s) TAKE 1 TABLET BY MOUTH DAILY 09/14/2016 03/12/2017 Inactive Generic For:ZOLOFT 50MG liothyronine 5 mcg tablet RxNorm: 043437 1 Tablet(s) PO BID 09/14/2016 10/23/2016 Inactive Calmoseptine 0.44 %-20.6 % topical ointment RxNorm: 540532 1 Application TOP BID and as needed to sore on buttocks 09/07/2016 No Stop Date Active cyanocobalamin (vit B-12) 1,000 mcg/mL injection solution RxNorm: 045419 Milliliter(s) Inj 08/29/2016 08/29/2016 Inactive hydrocodone 5 mg-acetaminophen 325 mg tablet RxNorm: 154496 1-2 Tablet(s) PO Q6 as needed for pain 08/29/2016 10/16/2016 Inactive levothyroxine 125 mcg tablet RxNorm: 767803 1 Tablet(s) PO daily 08/25/2016 10/23/2016 Inactive Topamax 25 mg tablet RxNorm: 461908 TAKE 1 TABLET BY MOUTH EVERY DAY AT BEDTIME 08/17/2016 12/05/2016 Inactive Generic For:TOPAMAX 25MG 08/17/2016 2:14:37 PM hydrocodone 5 mg-acetaminophen 325 mg tablet RxNorm: 499442 1-2 Tablet(s) PO Q6 as needed for pain 08/11/2016 08/28/2016 Inactive hydrocodone 5 mg-acetaminophen 325 mg tablet RxNorm: 215948 1 -2 Tablet(s) PO Q6 as needed for pain 08/11/2016 08/18/2016 Inactive hydrocodone 5 mg-acetaminophen 325 mg tablet RxNorm: 671477 1 Tablet(s) PO Q6 as needed for pain 08/05/2016 08/10/2016 Inactive cyanocobalamin (vit B-12) 1,000 mcg/mL injection solution RxNorm: 764019 Milliliter(s) Inj 08/04/2016 08/04/2016 Inactive Norvasc 10 mg tablet RxNorm: 980878 1 Tablet(s) PO daily 07/26/2016 07/20/2017 Inactive alprazolam 0.25 mg tablet RxNorm: 128872 1 Tablet(s) PO QHS 07/21/2016 09/19/2016 Inactive Norvasc 5 mg tablet RxNorm: 007088 1 Tablet(s) PO daily 07/21/2016 07/25/2016 Inactive levothyroxine 125 mcg tablet RxNorm: 839008 1 Tablet(s) PO daily 07/21/2016 12/11/2017 Inactive cyanocobalamin (vit B-12) 1,000 mcg/mL injection solution RxNorm: 455649 Milliliter(s) Inj 07/21/2016 07/21/2016 Inactive Zoloft 50 mg tablet RxNorm: 827174 Tablet(s) TAKE 1 TABLET BY MOUTH DAILY 07/21/2016 09/13/2016 Inactive Generic For:ZOLOFT 50MG cyanocobalamin (vit B-12) 1,000 mcg/mL injection solution RxNorm: 374862 1 Milliliter(s) Inj 07/05/2016 07/05/2016 Inactive cyanocobalamin (vit B-12) 1,000 mcg/mL injection solution RxNorm: 205910 1 Milliliter(s) Inj 06/22/2016 06/22/2016 Inactive cyanocobalamin (vit B-12) 1,000 mcg/mL injection solution RxNorm: 417639 Milliliter(s) Inj 06/09/2016 06/09/2016 Inactive Aricept 10 mg tablet RxNorm: 434294 1 Tablet(s) PO daily 05/27/2016 05/21/2017 Inactive Mobic 15 mg tablet RxNorm: 219868 1 Tablet(s) PO daily 05/27/2016 05/21/2017 Inactive levothyroxine 125 mcg tablet RxNorm: 709114 1 Tablet(s) PO daily 05/25/2016 07/20/2016 Inactive cyanocobalamin (vit B-12) 1,000 mcg/mL injection solution RxNorm: 374502 1 Milliliter(s) Inj 05/25/2016 05/25/2016 Inactive doxycycline hyclate 100 mg capsule RxNorm: 9964169 1 Capsule(s) PO BID 05/16/2016 05/15/2016 Inactive doxycycline hyclate 100 mg capsule RxNorm: 3130556 1 Capsule(s) PO BID 05/16/2016 05/22/2016 Inactive cyanocobalamin (vit B-12) 1,000 mcg/mL injection solution RxNorm: 292102 Milliliter(s) Inj 05/10/2016 05/10/2016 Inactive cyanocobalamin (vit B-12) 1,000 mcg/mL injection solution RxNorm: 240666 Milliliter(s) Inj 04/26/2016 04/26/2016 Inactive Topamax 25 mg tablet RxNorm: 580450 1 Tablet(s) PO QPM 04/22/2016 08/16/2016 Inactive cyanocobalamin (vit B-12) 1,000 mcg/mL injection solution RxNorm: 604475 Milliliter(s) 1 Milliliter(s) Inj U1bowih 04/11/2016 12/31/2017 Inactive liothyronine 5 mcg tablet RxNorm: 405764 1 Tablet(s) PO BID 04/11/2016 09/13/2016 Inactive cyanocobalamin (vit B-12) 1,000 mcg/mL injection solution RxNorm: 654840 Milliliter(s) Inj 04/11/2016 04/11/2016 Inactive cyanocobalamin (vit B-12) 1,000 mcg/mL injection solution RxNorm: 361253 Milliliter(s) Inj 03/31/2016 03/31/2016 Inactive cyanocobalamin (vit B-12) 1,000 mcg/mL injection solution RxNorm: 602361 1 Milliliter(s) Inj 03/15/2016 03/15/2016 Inactive levothyroxine 125 mcg tablet RxNorm: 314865 1 Tablet(s) PO daily 2016 03/03/2016 Inactive levothyroxine 125 mcg tablet RxNorm: 290696 1 Tablet(s) PO daily 2016 05/24/2016 Inactive cyanocobalamin (vit B-12) 1,000 mcg/mL injection solution RxNorm: 803548 Milliliter(s) Inj 02/25/2016 02/25/2016 Inactive cyanocobalamin (vit B-12) 1,000 mcg/mL injection solution RxNorm: 627156 1 Milliliter(s) Inj 02/02/2016 02/02/2016 Inactive sucralfate 1 gram tablet RxNorm: 986115 1 Tablet(s) PO QHS 01/25/2016 No Stop Date Active amiodarone 200 mg tablet RxNorm: 450928 1/2 Tablet(s) PO BID 01/25/2016 05/21/2017 Inactive cyanocobalamin (vit B-12) 1,000 mcg/mL injection solution RxNorm: 595889 Milliliter(s) Inj 01/18/2016 01/18/2016 Inactive cyanocobalamin (vit B-12) 1,000 mcg/mL injection solution RxNorm: 667330 Milliliter(s) Inj 12/29/2015 12/29/2015 Inactive Topamax 25 mg tablet RxNorm: 907863 1 Tablet(s) PO QPM 12/08/2015 04/05/2016 Inactive cyanocobalamin (vit B-12) 1,000 mcg/mL injection solution RxNorm: 106855 Milliliter(s) Inj 12/08/2015 12/08/2015 Inactive Bactrim DS 800 mg-160 mg tablet RxNorm: 070554 1 Tablet(s) PO BID 11/23/2015 11/22/2015 Inactive cyanocobalamin (vit B-12) 1,000 mcg/mL injection solution RxNorm: 292579 Milliliter(s) Inj 11/23/2015 11/23/2015 Inactive Bactrim DS 800 mg-160 mg tablet RxNorm: 563662 1 Tablet(s) PO BID 11/23/2015 11/29/2015 Inactive cyanocobalamin (vit B-12) 1,000 mcg/mL injection solution RxNorm: 400976 Milliliter(s) Inj 11/11/2015 11/11/2015 Inactive amoxicillin 500 mg capsule RxNorm: 126256 1 Capsule(s) PO TID 11/10/2015 11/19/2015 Inactive Zithromax Z-Henrique 250 mg tablet RxNorm: 943718 1 Tablet(s) PO UD 11/10/2015 01/24/2016 Inactive zpack x 1 amoxicillin 500 mg capsule RxNorm: 765037 1 Capsule(s) PO TID 11/10/2015 11/09/2015 Inactive cyanocobalamin (vit B-12) 1,000 mcg/mL injection solution RxNorm: 478743 1 Milliliter(s) Inj 10/29/2015 10/29/2015 Inactive [place] 3 capsule RxNorm: 1 Capsule(s) PO QAM , 2 Capsules at noon, 1 Capsule QHS 10/13/2015 No Stop Date Active potassium chloride ER 20 mEq tablet,extended release RxNorm: 387256 2 Tablet(s) PO daily at noon 10/13/2015 No Stop Date Active alprazolam 0.25 mg tablet RxNorm: 882129 1 Tablet(s) PO QHS 10/13/2015 07/20/2016 Inactive amiodarone 200 mg tablet RxNorm: 185629 1 Tablet(s) PO BID 10/13/2015 01/24/2016 Inactive cyanocobalamin (vit B-12) 1,000 mcg/mL injection solution RxNorm: 327210 1 Milliliter(s) Inj 10/12/2015 10/12/2015 Inactive Zofran 4 mg tablet RxNorm: 905279 1 Tablet(s) PO daily as needed 10/07/2015 05/24/2016 Inactive Zoloft 50 mg tablet RxNorm: 062634 TAKE 1 TABLET BY MOUTH DAILY 10/05/2015 05/01/2016 Inactive Generic For:ZOLOFT 50MG cyanocobalamin (vit B-12) 1,000 mcg/mL injection solution RxNorm: 881758 1 Milliliter(s) Inj 09/29/2015 09/29/2015 Inactive cyanocobalamin (vit B-12) 1,000 mcg/mL injection solution RxNorm: 664707 1 Milliliter(s) Inj 09/17/2015 09/17/2015 Inactive Norvasc 5 mg tablet RxNorm: 693961 1 Tablet(s) PO daily 09/17/2015 07/20/2016 Inactive liothyronine 5 mcg tablet RxNorm: 514615 1 Tablet(s) PO BID 09/17/2015 03/14/2016 Inactive Zoloft 50 mg tablet RxNorm: 425076 1 Tablet(s) PO daily 09/17/2015 10/04/2015 Inactive buspirone 15 mg tablet RxNorm: 900107 1 Tablet(s) PO BID 09/17/2015 09/10/2016 Inactive buspirone 15 mg tablet RxNorm: 489928 1 Tablet(s) PO BID 09/14/2015 09/16/2015 Inactive Topamax 25 mg tablet RxNorm: 739404 1 Tablet(s) PO QPM 09/03/2015 12/07/2015 Inactive cyanocobalamin (vit B-12) 1,000 mcg/mL injection solution RxNorm: 938234 1 Milliliter(s) Inj 09/03/2015 09/03/2015 Inactive cyanocobalamin (vit B-12) 1,000 mcg/mL injection solution RxNorm: 353815 Milliliter(s) Inj 08/17/2015 08/17/2015 Inactive cyanocobalamin (vit B-12) 1,000 mcg/mL injection solution RxNorm: 464139 Milliliter(s) Inj 08/06/2015 08/06/2015 Inactive levothyroxine 150 mcg tablet RxNorm: 896118 1 Tablet(s) PO daily 07/22/2015 03/03/2016 Inactive Aricept 10 mg tablet RxNorm: 788642 1 Tablet(s) PO daily 07/22/2015 05/26/2016 Inactive Mobic 15 mg tablet RxNorm: 029816 1 Tablet(s) PO daily 07/22/2015 05/26/2016 Inactive cyanocobalamin (vit B-12) 1,000 mcg/mL injection solution RxNorm: 422649 Milliliter(s) Inj 07/22/2015 07/22/2015 Inactive liothyronine 5 mcg tablet RxNorm: 530745 1 Tablet(s) PO BID 07/22/2015 09/16/2015 Inactive cyanocobalamin (vit B-12) 1,000 mcg/mL injection solution RxNorm: 255275 Milliliter(s) Inj 07/08/2015 07/08/2015 Inactive cyanocobalamin (vit B-12) 1,000 mcg/mL injection solution RxNorm: 666693 Milliliter(s) Inj 06/23/2015 06/23/2015 Inactive cyanocobalamin (vit B-12) 1,000 mcg/mL injection solution RxNorm: 360182 1 Milliliter(s) Inj 06/08/2015 06/08/2015 Inactive cyanocobalamin (vit B-12) 1,000 mcg/mL injection solution RxNorm: 769058 Milliliter(s) Inj 05/27/2015 05/27/2015 Inactive Aricept 10 mg tablet RxNorm: 036803 1 Tablet(s) PO daily 05/20/2015 07/21/2015 Inactive Zofran 4 mg tablet RxNorm: 970335 1 Tablet(s) PO daily as needed 05/20/2015 06/18/2015 Inactive alprazolam 0.25 mg tablet RxNorm: 814063 1 Tablet(s) PO BID 05/20/2015 10/12/2015 Inactive Mobic 15 mg tablet RxNorm: 781516 1 Tablet(s) PO daily 05/20/2015 07/21/2015 Inactive tramadol ER 100 mg tablet,extended release 24 hr RxNorm: 680833 1 Tablet(s) PO Q6 as needed 05/13/2015 No Stop Date Active cyanocobalamin (vit B-12) 1,000 mcg/mL injection solution RxNorm: 705553 1 Milliliter(s) Inj 05/12/2015 05/12/2015 Inactive Topamax 25 mg tablet RxNorm: 886356 1 Tablet(s) PO BID (start at one pill at bedtime x 1week then twice daily thereafter) 05/12/2015 09/02/2015 Inactive cyanocobalamin (vit B-12) 1,000 mcg/mL injection kit RxNorm: 757396 kit Inj 04/30/2015 04/30/2015 Inactive cyanocobalamin (vit B-12) 1,000 mcg/mL injection solution RxNorm: 832235 Milliliter(s) Inj 04/16/2015 04/16/2015 Inactive levothyroxine 150 mcg tablet RxNorm: 794109 1 Tablet(s) PO daily 04/08/2015 07/21/2015 Inactive cyanocobalamin (vit B-12) 1,000 mcg/mL injection solution RxNorm: 922905 Milliliter(s) 1 Milliliter(s) Inj Y1ansnx 04/08/2015 04/10/2016 Inactive Cytomel 5 mcg tablet RxNorm: 805693 1 Tablet(s) PO BID 04/08/2015 10/12/2015 Inactive Cytomel 5 mcg tablet RxNorm: 334866 1 Tablet(s) PO BID 04/07/2015 04/07/2015 Inactive Cytomel 5 mcg tablet RxNorm: 248986 1 Tablet(s) PO BID 04/07/2015 04/06/2015 Inactive cyanocobalamin (vit B-12) 1,000 mcg/mL injection solution RxNorm: 021695 Milliliter(s) Inj 04/02/2015 04/02/2015 Inactive cyanocobalamin (vit B-12) 1,000 mcg/mL injection solution RxNorm: 887979 Milliliter(s) Inj 03/18/2015 03/18/2015 Inactive cyanocobalamin (vit B-12) 1,000 mcg/mL injection solution RxNorm: 666211 Milliliter(s) 1 Milliliter(s) Inj A7himup 03/18/2015 04/07/2015 Inactive cyanocobalamin (vit B-12) 1,000 mcg/mL injection solution RxNorm: 879311 1 Milliliter(s) Inj E5soafn 03/16/2015 03/17/2015 Inactive cyanocobalamin (vit B-12) 1,000 mcg/mL injection solution RxNorm: 041541 Milliliter(s) Inj 03/03/2015 03/03/2015 Inactive cyanocobalamin (vit B-12) 1,000 mcg/mL injection solution RxNorm: 228633 Milliliter(s) Inj 02/18/2015 02/18/2015 Inactive cyanocobalamin (vit B-12) 1,000 mcg/mL injection solution RxNorm: 525923 Milliliter(s) Inj 02/04/2015 02/04/2015 Inactive cyanocobalamin (vit B-12) 1,000 mcg/mL injection solution RxNorm: 831384 Milliliter(s) Inj 01/22/2015 01/22/2015 Inactive Lac-Hydrin Five 5 % lotion RxNorm: 357719 1 TOP daily 01/13/2015 03/13/2015 Inactive Lac-Hydrin Five 5 % lotion RxNorm: 379723 1 TOP daily 01/13/2015 01/12/2015 Inactive cyanocobalamin (vit B-12) 1,000 mcg/mL injection solution RxNorm: 016855 Milliliter(s) Inj 01/08/2015 01/08/2015 Inactive cyanocobalamin (vit B-12) 1,000 mcg/mL injection solution RxNorm: 149608 Milliliter(s) Inj 12/25/2014 12/25/2014 Inactive levothyroxine 150 mcg tablet RxNorm: 887505 1 Tablet(s) PO daily 12/24/2014 04/07/2015 Inactive tramadol 50 mg tablet RxNorm: 157966 1-2 Tablet(s) PO Q6 as needed 12/17/2014 05/12/2015 Inactive alprazolam 0.25 mg tablet RxNorm: 624404 1 Tablet(s) PO BID 12/17/2014 04/15/2015 Inactive Pradaxa 150 mg capsule RxNorm: 2856271 1 Capsule(s) PO BID 12/16/2014 No Stop Date Active metoprolol tartrate 50 mg tablet RxNorm: 132141 1/2 Tablet(s) PO BID 12/16/2014 09/13/2016 Inactive buspirone 15 mg tablet RxNorm: 813883 1 Tablet(s) PO BID 12/16/2014 09/13/2015 Inactive cyanocobalamin (vit B-12) 1,000 mcg/mL injection solution RxNorm: 979933 1 Milliliter(s) Inj R8yplni 12/16/2014 03/15/2015 Inactive cyanocobalamin (vit B-12) 1,000 mcg/mL injection solution RxNorm: 450286 1 Milliliter(s) Inj [id number] 12/16/2014 12/15/2014 Inactive sucralfate 1 gram tablet RxNorm: 254388 Tablet(s) PO QID 12/16/2014 12/10/2015 Inactive cyanocobalamin (vit B-12) 1,000 mcg/mL injection solution RxNorm: 433741 Milliliter(s) Inj 12/10/2014 12/10/2014 Inactive cyanocobalamin (vit B-12) 1,000 mcg/mL injection solution RxNorm: 117194 Milliliter(s) Inj 11/26/2014 11/26/2014 Inactive Zoloft 50 mg tablet RxNorm: 787893 1 Tablet(s) PO daily 11/24/2014 06/21/2015 Inactive Zoloft 50 mg tablet RxNorm: 949530 1 Tablet(s) PO daily 11/24/2014 11/23/2014 Inactive cyanocobalamin (vit B-12) 1,000 mcg/mL injection kit RxNorm: 377773 Milliliter(s) Inj 11/12/2014 11/12/2014 Inactive cyanocobalamin (vit B-12) 1,000 mcg/mL injection solution RxNorm: 769312 Milliliter(s) Inj 10/28/2014 10/28/2014 Inactive [SAVINGS FOR NON-COVERED DRUGS -- [id number], PCN: [id number], Group: [id number], ID# [id number], Questions: . THIS IS NOT INSURANCE.] promethazine oral RxNorm: 8745 oral No Start Date Active digoxin 125 mcg tablet RxNorm: 097461 Tablet(s) PO every other day No Start Date Active furosemide 40 mg tablet RxNorm: 331234 1 Tablet(s) PO daily No Start Date Active Vitamin D3 5,000 unit tablet RxNorm: 614695 1 Tablet(s) PO daily No Start Date Active erythromycin 250 mg capsule,delayed release RxNorm: 734518 1 Capsule(s) PO AC No Start Date Active Protonix 40 mg tablet,delayed release RxNorm: 751335 1 Tablet(s) PO BID No Start Date Active Cozaar 100 mg tablet RxNorm: 742662 1 Tablet(s) PO daily No Start Date 09/13/2016 Inactive sucralfate 1 gram tablet RxNorm: 524328 Tablet(s) PO QID No Start Date 12/15/2014 Inactive amiodarone 200 mg tablet RxNorm: 258097 2 Tablet(s) PO daily No Start Date 10/13/2015 Inactive buspirone 15 mg tablet RxNorm: 596628 1 Tablet(s) PO daily No Start Date 12/15/2014 Inactive potassium chloride ER 20 mEq tablet,extended release RxNorm: 157438 1 Tablet(s) PO daily No Start Date 10/12/2015 Inactive Prilosec 40 mg capsule,delayed release RxNorm: 897918 1 Capsule(s) PO daily No Start Date 09/02/2015 Inactive [place] 3 capsule RxNorm: Capsule(s) PO No Start Date 10/12/2015 Inactive alprazolam 0.25 mg tablet RxNorm: 358137 Tablet(s) PO QHS No Start Date 12/16/2014 Inactive levothyroxine 125 mcg tablet RxNorm: 633392 1 Tablet(s) PO daily No Start Date 12/23/2014 Inactive liothyronine 5 mcg tablet RxNorm: 384613 1 Tablet(s) PO BID No Start Date 07/21/2015 Inactive Mobic 15 mg tablet RxNorm: 633284 Tablet(s) PO daily No Start Date 05/19/2015 Inactive Norvasc 5 mg tablet RxNorm: 651389 1 Tablet(s) PO daily No Start Date 09/16/2015 Inactive Zofran 4 mg tablet RxNorm: 834433 1 Tablet(s) PO daily as needed No Start Date 05/19/2015 Inactive Tamiflu 75 mg capsule RxNorm: 989716 1 Capsule(s) PO BID No Start Date 07/23/2017 Inactive tramadol 50 mg tablet RxNorm: 850482 1 Tablet(s) PO daily as needed No Start Date 12/16/2014 Inactive amiodarone 200 mg tablet RxNorm: 801769 1 Tablet(s) PO daily No Start Date 10/12/2015 Inactive Zofran ODT 4 mg disintegrating tablet RxNorm: 281608 1 Tablet(s) PO TID as needed No Start Date 05/02/2017 Inactive albuterol sulfate 2.5 mg/3 mL (0.083 %) solution for nebulization RxNorm: 725254 3 Milliliter(s) INH Q6 PRN No Start Date 09/20/2017 Inactive meclizine 25 mg tablet RxNorm: 128138 Tablet(s) PO as needed No Start Date 05/24/2016 Inactive Pradaxa 150 mg capsule RxNorm: 1019391 1 Capsule(s) PO daily No Start Date 12/15/2014 Inactive metoprolol tartrate 50 mg tablet RxNorm: 598907 1/2 Tablet(s) PO No Start Date 12/15/2014 Inactive Aricept 10 mg tablet RxNorm: 398817 Tablet(s) PO daily No Start Date 05/19/2015 Inactive Calmoseptine 0.44 %-20.6 % topical ointment RxNorm: 318029 1 Application TOP BID and as needed to sore on buttocks No Start Date 09/06/2016 Inactive Zithromax Z-Henrique 250 mg tablet RxNorm: 463527 1 Tablet(s) PO UD No Start Date 11/09/2015 Inactive zpack x 1 Medication Administered Medication Codes Instructions Start Date Status cyanocobalamin (vit B-12) 1,000 mcg/mL injection solution RxNorm: 921192 Milliliter 04/12/2018 No longer Active cyanocobalamin (vit B-12) 1,000 mcg/mL injection solution RxNorm: 338161 Milliliter 03/30/2018 No longer Active cyanocobalamin (vit B-12) 1,000 mcg/mL injection solution RxNorm: 874988 Milliliter 03/16/2018 No longer Active cyanocobalamin (vit B-12) 1,000 mcg/mL injection solution RxNorm: 213851 Milliliter 03/02/2018 No longer Active cyanocobalamin (vit B-12) 1,000 mcg/mL injection solution RxNorm: 122670 Milliliter 02/08/2018 No longer Active cyanocobalamin (vit B-12) 1,000 mcg/mL injection solution RxNorm: 609794 Milliliter 01/24/2018 No longer Active cyanocobalamin (vit B-12) 1,000 mcg/mL injection solution RxNorm: 333198 Milliliter 01/10/2018 No longer Active cyanocobalamin (vit B-12) 1,000 mcg/mL injection solution RxNorm: 147334 Milliliter 12/27/2017 No longer Active cyanocobalamin (vit B-12) 1,000 mcg/mL injection solution RxNorm: 889630 1Milliliter 12/12/2017 No longer Active cyanocobalamin (vit B-12) 1,000 mcg/mL injection solution RxNorm: 269467 Milliliter 12/01/2017 No longer Active cyanocobalamin (vit B-12) 1,000 mcg/mL injection solution RxNorm: 216515 1Milliliter 11/17/2017 No longer Active cyanocobalamin (vit B-12) 1,000 mcg/mL injection solution RxNorm: 147920 1Milliliter 11/02/2017 No longer Active cyanocobalamin (vit B-12) 1,000 mcg/mL injection solution RxNorm: 417856 1Milliliter 10/20/2017 No longer Active cyanocobalamin (vit B-12) 1,000 mcg/mL injection solution RxNorm: 215060 Milliliter 10/06/2017 No longer Active cyanocobalamin (vit B-12) 1,000 mcg/mL injection solution RxNorm: 133594 Milliliter 09/21/2017 No longer Active Kenalog 40 mg/mL suspension for injection RxNorm: 4501564 Milliliter 09/15/2017 No longer Active cyanocobalamin (vit B-12) 1,000 mcg/mL injection solution RxNorm: 548323 Milliliter 09/07/2017 No longer Active cyanocobalamin (vit B-12) 1,000 mcg/mL injection solution RxNorm: 633164 Milliliter 08/24/2017 No longer Active cyanocobalamin (vit B-12) 1,000 mcg/mL injection solution RxNorm: 337815 Milliliter 07/06/2017 No longer Active cyanocobalamin (vit B-12) 1,000 mcg/mL injection solution RxNorm: 906624 Milliliter 06/20/2017 No longer Active Kenalog 40 mg/mL suspension for injection RxNorm: 4378848 1Milliliter 06/20/2017 No longer Active cyanocobalamin (vit B-12) 1,000 mcg/mL injection solution RxNorm: 898925 Milliliter 06/05/2017 No longer Active cyanocobalamin (vit B-12) 1,000 mcg/mL injection solution RxNorm: 827319 Milliliter 05/25/2017 No longer Active cyanocobalamin (vit B-12) 1,000 mcg/mL injection solution RxNorm: 992713 Milliliter 05/16/2017 No longer Active cyanocobalamin (vit B-12) 1,000 mcg/mL injection solution RxNorm: 062521 1Milliliter 05/01/2017 No longer Active cyanocobalamin (vit B-12) 1,000 mcg/mL injection solution RxNorm: 354828 Milliliter 04/18/2017 No longer Active cyanocobalamin (vit B-12) 1,000 mcg/mL injection solution RxNorm: 512328 Milliliter 04/06/2017 No longer Active cyanocobalamin (vit B-12) 1,000 mcg/mL injection solution RxNorm: 843782 Milliliter 03/22/2017 No longer Active cyanocobalamin (vit B-12) 1,000 mcg/mL injection solution RxNorm: 532796 Milliliter 03/09/2017 No longer Active cyanocobalamin (vit B-12) 1,000 mcg/mL injection solution RxNorm: 501511 Milliliter 02/23/2017 No longer Active cyanocobalamin (vit B-12) 1,000 mcg/mL injection solution RxNorm: 715867 Milliliter 02/09/2017 No longer Active cyanocobalamin (vit B-12) 1,000 mcg/mL injection solution RxNorm: 846205 Milliliter 01/23/2017 No longer Active cyanocobalamin (vit B-12) 1,000 mcg/mL injection solution RxNorm: 236204 Milliliter 01/10/2017 No longer Active cyanocobalamin (vit B-12) 1,000 mcg/mL injection solution RxNorm: 814077 1Milliliter 12/28/2016 No longer Active cyanocobalamin (vit B-12) 1,000 mcg/mL injection solution RxNorm: 184892 Milliliter 12/14/2016 No longer Active cyanocobalamin (vit B-12) 1,000 mcg/mL injection solution RxNorm: 743532 Milliliter 11/24/2016 No longer Active cyanocobalamin (vit B-12) 1,000 mcg/mL injection solution RxNorm: 340137 1Milliliter 11/07/2016 No longer Active cyanocobalamin (vit B-12) 1,000 mcg/mL injection solution RxNorm: 633458 Milliliter 10/24/2016 No longer Active cyanocobalamin (vit B-12) 1,000 mcg/mL injection solution RxNorm: 240466 1Milliliter 09/29/2016 No longer Active cyanocobalamin (vit B-12) 1,000 mcg/mL injection solution RxNorm: 147549 Milliliter 08/29/2016 No longer Active cyanocobalamin (vit B-12) 1,000 mcg/mL injection solution RxNorm: 774561 Milliliter 08/04/2016 No longer Active cyanocobalamin (vit B-12) 1,000 mcg/mL injection solution RxNorm: 810208 Milliliter 07/21/2016 No longer Active cyanocobalamin (vit B-12) 1,000 mcg/mL injection solution RxNorm: 558657 1Milliliter 07/05/2016 No longer Active cyanocobalamin (vit B-12) 1,000 mcg/mL injection solution RxNorm: 647598 1Milliliter 06/22/2016 No longer Active cyanocobalamin (vit B-12) 1,000 mcg/mL injection solution RxNorm: 157953 Milliliter 06/09/2016 No longer Active cyanocobalamin (vit B-12) 1,000 mcg/mL injection solution RxNorm: 672167 1Milliliter 05/25/2016 No longer Active cyanocobalamin (vit B-12) 1,000 mcg/mL injection solution RxNorm: 153593 Milliliter 05/10/2016 No longer Active cyanocobalamin (vit B-12) 1,000 mcg/mL injection solution RxNorm: 950408 Milliliter 04/26/2016 No longer Active cyanocobalamin (vit B-12) 1,000 mcg/mL injection solution RxNorm: 569658 Milliliter 04/11/2016 No longer Active cyanocobalamin (vit B-12) 1,000 mcg/mL injection solution RxNorm: 365178 Milliliter 03/31/2016 No longer Active cyanocobalamin (vit B-12) 1,000 mcg/mL injection solution RxNorm: 173349 1Milliliter 03/15/2016 No longer Active cyanocobalamin (vit B-12) 1,000 mcg/mL injection solution RxNorm: 663121 Milliliter 02/25/2016 No longer Active cyanocobalamin (vit B-12) 1,000 mcg/mL injection solution RxNorm: 670918 1Milliliter 02/02/2016 No longer Active cyanocobalamin (vit B-12) 1,000 mcg/mL injection solution RxNorm: 737560 Milliliter 01/18/2016 No longer Active cyanocobalamin (vit B-12) 1,000 mcg/mL injection solution RxNorm: 824429 Milliliter 12/29/2015 No longer Active cyanocobalamin (vit B-12) 1,000 mcg/mL injection solution RxNorm: 207436 Milliliter 12/08/2015 No longer Active cyanocobalamin (vit B-12) 1,000 mcg/mL injection solution RxNorm: 592866 Milliliter 11/23/2015 No longer Active cyanocobalamin (vit B-12) 1,000 mcg/mL injection solution RxNorm: 770294 Milliliter 11/11/2015 No longer Active cyanocobalamin (vit B-12) 1,000 mcg/mL injection solution RxNorm: 093625 1Milliliter 10/29/2015 No longer Active cyanocobalamin (vit B-12) 1,000 mcg/mL injection solution RxNorm: 283869 1Milliliter 10/12/2015 No longer Active cyanocobalamin (vit B-12) 1,000 mcg/mL injection solution RxNorm: 733558 1Milliliter 09/29/2015 No longer Active cyanocobalamin (vit B-12) 1,000 mcg/mL injection solution RxNorm: 158602 1Milliliter 09/17/2015 No longer Active cyanocobalamin (vit B-12) 1,000 mcg/mL injection solution RxNorm: 822432 1Milliliter 09/03/2015 No longer Active cyanocobalamin (vit B-12) 1,000 mcg/mL injection solution RxNorm: 647875 Milliliter 08/17/2015 No longer Active cyanocobalamin (vit B-12) 1,000 mcg/mL injection solution RxNorm: 453839 Milliliter 08/06/2015 No longer Active cyanocobalamin (vit B-12) 1,000 mcg/mL injection solution RxNorm: 193712 Milliliter 07/22/2015 No longer Active cyanocobalamin (vit B-12) 1,000 mcg/mL injection solution RxNorm: 392784 Milliliter 07/08/2015 No longer Active cyanocobalamin (vit B-12) 1,000 mcg/mL injection solution RxNorm: 499307 Milliliter 06/23/2015 No longer Active cyanocobalamin (vit B-12) 1,000 mcg/mL injection solution RxNorm: 577370 1Milliliter 06/08/2015 No longer Active cyanocobalamin (vit B-12) 1,000 mcg/mL injection solution RxNorm: 687195 Milliliter 05/27/2015 No longer Active cyanocobalamin (vit B-12) 1,000 mcg/mL injection solution RxNorm: 410371 1Milliliter 05/12/2015 No longer Active cyanocobalamin (vit B-12) 1,000 mcg/mL injection kit RxNorm: 843051 kit 04/30/2015 No longer Active cyanocobalamin (vit B-12) 1,000 mcg/mL injection solution RxNorm: 726203 Milliliter 04/16/2015 No longer Active cyanocobalamin (vit B-12) 1,000 mcg/mL injection solution RxNorm: 964797 Milliliter 04/02/2015 No longer Active cyanocobalamin (vit B-12) 1,000 mcg/mL injection solution RxNorm: 963019 Milliliter 03/18/2015 No longer Active cyanocobalamin (vit B-12) 1,000 mcg/mL injection solution RxNorm: 820457 Milliliter 03/03/2015 No longer Active cyanocobalamin (vit B-12) 1,000 mcg/mL injection solution RxNorm: 764797 Milliliter 02/18/2015 No longer Active cyanocobalamin (vit B-12) 1,000 mcg/mL injection solution RxNorm: 285215 Milliliter 02/04/2015 No longer Active cyanocobalamin (vit B-12) 1,000 mcg/mL injection solution RxNorm: 159655 Milliliter 01/22/2015 No longer Active cyanocobalamin (vit B-12) 1,000 mcg/mL injection solution RxNorm: 631889 Milliliter 01/08/2015 No longer Active cyanocobalamin (vit B-12) 1,000 mcg/mL injection solution RxNorm: 503614 Milliliter 12/25/2014 No longer Active cyanocobalamin (vit B-12) 1,000 mcg/mL injection solution RxNorm: 111694 Milliliter 12/10/2014 No longer Active cyanocobalamin (vit B-12) 1,000 mcg/mL injection solution RxNorm: 969751 Milliliter 11/26/2014 No longer Active cyanocobalamin (vit B-12) 1,000 mcg/mL injection kit RxNorm: 534693 Milliliter 11/12/2014 No longer Active cyanocobalamin (vit B-12) 1,000 mcg/mL injection solution RxNorm: 289895 Milliliter 10/28/2014 No longer Active Immunizations Vaccine Codes Date Status Influenza CVX: 141 03/16/2018 completed Influenza CVX: 141 03/22/2017 completed Pneumococcal (Adult) CVX: 33 05/25/2016 completed Influenza CVX: 141 03/15/2016 completed Assessments Condition Codes Effective Dates 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 ICD-9: 281.0 04/12/2018 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 ICD-9: 266.2 03/30/2018 Encounter for immunization ICD-10: Z23 ICD-9: V03.82 [...] (3rd IS) 3.20 uIU/mL 02/26/2018 Free T4 Wvr954 FREE T4 0.99 ng/dL 02/26/2018 Cbc With [...] 90.1 fl 02/26/2018 Cbc With Differential Ord2 [place]% 10.3 % 02/26/2018 Cbc With Differential Ord2 [...] 1.80 K/ul 02/26/2018 Cbc With Differential Ord2 [place] ABS# 0.7 K/ul 02/26/2018 Cbc With Differential Ord2 Eos ABS# 0.2 K/ul 02/26/2018 Cbc With Differential Ord2 Baso ABS# 0.0 K/ul 02/26/2018 B12 Ztg438 B12 889.00 pg/ml 02/26/2018 Digoxin Ord9 DIGOXIN 0.7 NG/ML 11/23/2017 Comp Metabolic Wtc925 NA 142 mEq/L 11/23/2017 Comp Metabolic Sqw597 K 4.9 mEq/L 11/23/2017 Comp Metabolic Qab556 CL 112 mEq/L 11/23/2017 Comp Metabolic Xpy884 CO2 18.0 mEq/L 11/23/2017 Comp Metabolic Zgz258 ANION GAP 17 11/23/2017 Comp Metabolic Nck517 GLUCOSE 123 mg/dL 11/23/2017 Comp Metabolic Ilm913 Creat 1.0 mg/dL 11/23/2017 Comp Metabolic Huc830 eGFR 59 ml/min/1.73m2 11/23/2017 Comp Metabolic Lea109 BUN 24 mg/dL 11/23/2017 Comp Metabolic Rfb083 B/C Ratio 25.0 Ratio 11/23/2017 Comp Metabolic Cqr156 CALCIUM 9.4 mg/dL 11/23/2017 Comp Metabolic Vsg717 ALK PHOS 56 U/L 11/23/2017 Comp Metabolic Tzy801 AST(SGOT) 17 U/L 11/23/2017 Comp Metabolic Qwo114 ALT(SGPT) 16 U/L 11/23/2017 Comp Metabolic Gty762 BILI T 0.7 mg/dL 11/23/2017 Comp Metabolic Hrt522 ALBUMIN 3.8 g/dL 11/23/2017 Comp Metabolic Aoi431 TPRO 6.2 g/dL 11/23/2017 Comp Metabolic Fph654 GLOB 2.4 g/dL 11/23/2017 Comp Metabolic Tdy838 A/G Ratio 1.6 Ratio 11/23/2017 Comp Metabolic Ded136 Osmo 289 mOsmo 11/23/2017 Free T4 Vhz741 FREE T4 1.04 ng/dL 11/23/2017 %Hba1C Vre714 % HbA1c 25335- 6 6.4 % 11/23/2017 %Hba1C Bhy917 Gluc Ave 137 mg/dL 11/23/2017 Lipid Ord30 CHOL 179 mg/dL 11/23/2017 Lipid Ord30 HDL 51.0 mg/dl 11/23/2017 Lipid Ord30 TRIG 134 mg/dL 11/23/2017 Lipid Ord30 LDL 101 mg/dL 11/23/2017 Lipid Ord30 C/HDL 3.5 Ratio 11/23/2017 Tsh Ord6 TSH (3rd IS) 1.00 uIU/mL 11/23/2017 Microalbumin Xwk381 MicroAlb <0.7 mg/dL 11/23/2017 Comp Metabolic Dsz011 NA 141 mEq/L 01/23/2017 Comp Metabolic Yua354 K 4.5 mEq/L 01/23/2017 Comp Metabolic Ocu253 CL 107 mEq/L 01/23/2017 Comp Metabolic Lhp818 CO2 21.0 mEq/L 01/23/2017 Comp Metabolic Axz160 ANION GAP 18 01/23/2017 Comp Metabolic Ysr076 GLUCOSE 138 mg/dL 01/23/2017 Comp Metabolic Dwh941 Creat 1.0 mg/dL 01/23/2017 Comp Metabolic Aka478 eGFR 56 ml/min/1.73m2 01/23/2017 Comp Metabolic Lvf050 BUN 26 mg/dL 01/23/2017 Comp Metabolic Kep635 B/C Ratio 25.7 Ratio 01/23/2017 Comp Metabolic Zbx793 CALCIUM 9.0 mg/dL 01/23/2017 Comp Metabolic Ipy247 ALK PHOS 37 U/L 01/23/2017 Comp Metabolic Cdy224 AST(SGOT) 20 U/L 01/23/2017 Comp Metabolic Gwq880 ALT(SGPT) 25 U/L 01/23/2017 Comp Metabolic Lnj167 BILI T 0.9 mg/dL 01/23/2017 Comp Metabolic Igp413 ALBUMIN 3.8 g/dL 01/23/2017 Comp Metabolic Wym089 TPRO 6.5 g/dL 01/23/2017 Comp Metabolic Ixo022 GLOB 2.7 g/dL 01/23/2017 Comp Metabolic Thj336 A/G Ratio 1.4 Ratio 01/23/2017 Comp Metabolic Dam321 Osmo 288 mOsmo 01/23/2017 Free T4 Yht262 FREE T4 1.05 ng/dL 01/23/2017 %Hba1C Moz899 % HbA1c 91617- 6 6.1 % 01/23/2017 %Hba1C Lnj985 Gluc Ave 128 mg/dL 01/23/2017 Tsh Ord6 hTSH II 1.68 uIU/mL 01/23/2017 Culture Urine [id number] URINE CULTURE SEE NOTES 11/10/2016 Culture Urine [id number] Continued Results 11/10/2016 Urine Culture Ucult Complete [...] Ord15 CALCIUM 9.3 mg/dL 09/29/2016 Free T4 Koz805 FREE T4 0.99 ng/dL 09/07/2016 Cbc With [...] 91.7 fl 09/07/2016 Cbc With Differential Ord2 [place]% 9.8 % 09/07/2016 Cbc With Differential Ord2 [...] 1.75 K/ul 09/07/2016 Cbc With Differential Ord2 [place] ABS# 0.6 K/ul 09/07/2016 Cbc With Differential Ord2 Eos ABS# 0.1 K/ul 09/07/2016 Cbc With Differential Ord2 Baso ABS# 0.0 K/ul 09/07/2016 Tsh Ord6 hTSH II 1.41 uIU/mL 09/07/2016 Culture Urine [id number] URINE CULTURE SEE NOTES 06/27/2016 Lipid Ord30 CHOL 196 mg/dL 06/22/2016 Lipid Ord30 HDL 63.0 mg/dl 06/22/2016 Lipid Ord30 TRIG 154 mg/dL 06/22/2016 Lipid Ord30 LDL 102 mg/dL 06/22/2016 Lipid Ord30 C/HDL 3.1 Ratio 06/22/2016 Hepatic Xru752 ALBUMIN 4.2 g/dL 06/22/2016 Hepatic Opm598 TPRO 7.0 g/dL 06/22/2016 Hepatic Qpw577 GLOB 2.8 g/dL 06/22/2016 Hepatic Hsh672 A/G Ratio 1.5 Ratio 06/22/2016 Hepatic Emf637 ALK PHOS 54 U/L 06/22/2016 Hepatic Bah813 ALT(SGPT) 30 U/L 06/22/2016 Hepatic Msw779 AST(SGOT) 24 U/L 06/22/2016 Hepatic Dmo981 BILI T 1.1 mg/dL 06/22/2016 Hepatic Qez163 BILI D 0.2 mg/dL 06/22/2016 Hepatic Xjw009 BILI I 0.9 mg/dL 06/22/2016 Comp Metabolic Ppr584 NA 139 mEq/L 06/14/2016 Comp Metabolic Kgi761 K 4.6 mEq/L 06/14/2016 Comp Metabolic Nlz513 CL 108 mEq/L 06/14/2016 Comp Metabolic Llh030 CO2 22.0 mEq/L 06/14/2016 Comp Metabolic Bqc885 ANION GAP 14 06/14/2016 Comp Metabolic Dhd436 GLUCOSE 114 mg/dL 06/14/2016 Comp Metabolic Ohm067 Creat 1.2 mg/dL 06/14/2016 Comp Metabolic Teh485 eGFR 48 ml/min/1.73m2 06/14/2016 Comp Metabolic Ejw841 BUN 24 mg/dL 06/14/2016 Comp Metabolic Gbn903 B/C Ratio 20.9 Ratio 06/14/2016 Comp Metabolic Opj880 CALCIUM 9.9 mg/dL 06/14/2016 Comp Metabolic Mhn546 ALK PHOS 47 U/L 06/14/2016 Comp Metabolic Ugw651 AST(SGOT) 28 U/L 06/14/2016 Comp Metabolic Nfn646 ALT(SGPT) 32 U/L 06/14/2016 Comp Metabolic Xps805 BILI T 0.9 mg/dL 06/14/2016 Comp Metabolic Yfx006 ALBUMIN 4.1 g/dL 06/14/2016 Comp Metabolic Egx708 TPRO 6.9 g/dL 06/14/2016 Comp Metabolic Xge942 GLOB 2.8 g/dL 06/14/2016 Comp Metabolic Pdb027 A/G Ratio 1.5 Ratio 06/14/2016 Comp Metabolic Irv123 Osmo 282 mOsmo 06/14/2016 Tsh Ord6 hTSH II 1.26 uIU/mL 06/14/2016 Free T4 Jfn705 FREE T4 1.09 ng/dL 06/14/2016 Tsh Ord6 hTSH II 0.28 uIU/mL 02/02/2016 Digoxin Ord9 DIGOXIN 0.7 NG/ML 02/02/2016 Free T4 Che244 FREE T4 1.23 ng/dL 02/02/2016 Hepatic Xwu631 ALBUMIN 4.0 g/dL 02/02/2016 Hepatic Adv085 TPRO 7.0 g/dL 02/02/2016 Hepatic Mxh373 GLOB 3.0 g/dL 02/02/2016 Hepatic Clc749 A/G Ratio 1.3 Ratio 02/02/2016 Hepatic Bww280 ALK PHOS 57 U/L 02/02/2016 Hepatic Lbf233 ALT(SGPT) 62 U/L 02/02/2016 Hepatic Ehe046 AST(SGOT) 54 U/L 02/02/2016 Hepatic Wbr104 BILI T 0.8 mg/dL 02/02/2016 Hepatic Abj158 BILI D 0.2 mg/dL 02/02/2016 Hepatic Qvm849 BILI I 0.6 mg/dL 02/02/2016 Urine Culture Ucult Preliminary No Growth Day 1 11/25/2015 Urine Culture Ucult Complete No Growth Day 2 11/25/2015 Hepatic Kbr093 ALBUMIN 3.9 g/dL 11/11/2015 Hepatic Vug330 TPRO 7.0 g/dL 11/11/2015 Hepatic Ahi763 GLOB 3.1 g/dL 11/11/2015 Hepatic Gyn856 A/G Ratio 1.3 Ratio 11/11/2015 Hepatic Nji388 ALK PHOS 63 U/L 11/11/2015 Hepatic Qzs818 ALT(SGPT) 107 U/L 11/11/2015 Hepatic Qdc646 AST(SGOT) 101 U/L 11/11/2015 Hepatic Zcp976 BILI T 0.6 mg/dL 11/11/2015 Hepatic Brw214 BILI D 0.1 mg/dL 11/11/2015 Hepatic Ais981 BILI I 0.5 mg/dL 11/11/2015 Comp Metabolic Gac168 NA 138 mEq/L 10/29/2015 Comp Metabolic Pdp627 K 5.0 mEq/L 10/29/2015 Comp Metabolic Tel826 CL 105 mEq/L 10/29/2015 Comp Metabolic Wxy545 CO2 23.0 mEq/L 10/29/2015 Comp Metabolic Ykc677 ANION GAP 15 10/29/2015 Comp Metabolic Bil793 GLUCOSE 105 mg/dL 10/29/2015 Comp Metabolic Mdb723 Creat 1.0 mg/dL 10/29/2015 Comp Metabolic Xeh204 eGFR 55 ml/min/1.73m2 10/29/2015 Comp Metabolic Crj592 BUN 20 mg/dL 10/29/2015 Comp Metabolic Oma570 B/C Ratio 19.4 Ratio 10/29/2015 Comp Metabolic Cfj313 CALCIUM 8.8 mg/dL 10/29/2015 Comp Metabolic Znp585 ALK PHOS 56 U/L 10/29/2015 Comp Metabolic Huy078 AST(SGOT) 66 U/L 10/29/2015 Comp Metabolic Jvy700 ALT(SGPT) 78 U/L 10/29/2015 Comp Metabolic Kai193 BILI T 0.7 mg/dL 10/29/2015 Comp Metabolic Jue749 ALBUMIN 3.6 g/dL 10/29/2015 Comp Metabolic Zcj719 TPRO 6.6 g/dL 10/29/2015 Comp Metabolic Clr337 GLOB 3.0 g/dL 10/29/2015 Comp Metabolic Ljm810 A/G Ratio 1.2 Ratio 10/29/2015 Comp Metabolic Tsi756 Osmo 279 mOsmo 10/29/2015 Comp Metabolic Yev522 NA 136 mEq/L 09/03/2015 Comp Metabolic Mfr698 K 4.4 mEq/L 09/03/2015 Comp Metabolic Mjg417 CL 103 mEq/L 09/03/2015 Comp Metabolic Wng223 CO2 24.0 mEq/L 09/03/2015 Comp Metabolic Rcq493 ANION GAP 13 09/03/2015 Comp Metabolic Ahz026 GLUCOSE 87 mg/dL 09/03/2015 Comp Metabolic Idy980 Creat 1.1 mg/dL 09/03/2015 Comp Metabolic Yey981 eGFR 53 ml/min/1.73m2 09/03/2015 Comp Metabolic Qol350 BUN 17 mg/dL 09/03/2015 Comp Metabolic Vwk996 B/C Ratio 16.2 Ratio 09/03/2015 Comp Metabolic Zln451 CALCIUM 9.0 mg/dL 09/03/2015 Comp Metabolic Wzk122 ALK PHOS 55 U/L 09/03/2015 Comp Metabolic Dby325 AST(SGOT) 83 U/L 09/03/2015 Comp Metabolic Vse955 ALT(SGPT) 126 U/L 09/03/2015 Comp Metabolic Mgr969 BILI T 0.9 mg/dL 09/03/2015 Comp Metabolic Azg254 ALBUMIN 3.9 g/dL 09/03/2015 Comp Metabolic Brv215 TPRO 6.8 g/dL 09/03/2015 Comp Metabolic Vog171 GLOB 2.9 g/dL 09/03/2015 Comp Metabolic Xhf336 A/G Ratio 1.4 Ratio 09/03/2015 Comp Metabolic Tze121 Osmo 273 mOsmo 09/03/2015 Total T3 Ord42 TT3 0.6 ng/ml 07/09/2015 Tsh Ord6 hTSH II 1.62 uIU/mL 07/09/2015 Total T3 Ord42 TT3 0.5 ng/ml 04/02/2015 Free T4 Vgl885 FREE T4 1.23 ng/dL 04/02/2015 Tsh Ord6 [...] Procedure Codes Date THER/PROPH/DIAG INJ SC/IM CPT-4: 27690 04/12/2018 THER/PROPH/DIAG INJ SC/IM CPT-4: 43876 03/30/2018 THER/PROPH/DIAG INJ SC/IM CPT-4: 13950 03/16/2018 VITAMIN B12 INJECTION CPT- 4: J3420 03/16/2018 ADMIN INFLUENZA VIRUS VAC CPT-4: G0008 03/16/2018 FLU VACC PRSV FREE INC ANTIG Formatting Model/CDA Sections, Assigned to/Nga Ojeda CPT-4: 40825Vkdiaxo 03/16/2018 THER/PROPH/DIAG INJ SC/IM CPT-4: 06128 03/02/2018 THER/PROPH/DIAG INJ SC/IM CPT-4: 94604 02/08/2018 THER/PROPH/DIAG INJ SC/IM CPT-4: 14171 01/24/2018 THER/PROPH/DIAG INJ SC/IM CPT-4: 04994 01/10/2018 THER/PROPH/DIAG INJ SC/IM CPT-4: 69340 12/27/2017 VITAMIN B12 INJECTION CPT- 4: J3420 12/27/2017 THER/PROPH/DIAG INJ SC/IM CPT-4: 21203 12/12/2017 THER/PROPH/DIAG INJ SC/IM CPT-4: 82211 12/01/2017 VITAMIN B12 INJECTION CPT- 4: J3420 12/01/2017 THER/PROPH/DIAG INJ SC/IM CPT-4: 95179 11/17/2017 THER/PROPH/DIAG INJ SC/IM CPT-4: 27746 11/02/2017 THER/PROPH/DIAG INJ SC/IM CPT-4: 94596 10/20/2017 THER/PROPH/DIAG INJ SC/IM CPT-4: 50418 10/06/2017 THER/PROPH/DIAG INJ SC/IM CPT-4: 85956 09/21/2017 TRIAMCINOLONE ACET INJ NOS CPT-4: J3301 09/15/2017 THER/PROPH/DIAG INJ SC/IM CPT-4: 64449 09/07/2017 THER/PROPH/DIAG INJ SC/IM CPT-4: 33505 08/24/2017 THER/PROPH/DIAG INJ SC/IM CPT-4: 10032 07/06/2017 THER/PROPH/DIAG INJ SC/IM CPT-4: 58669 06/20/2017 TRIAMCINOLONE ACET INJ NOS CPT-4: J3301 06/20/2017 PPPS, SUBSEQ VISIT CPT- 4: G0439 06/05/2017 THER/PROPH/DIAG INJ SC/IM CPT-4: 59979 06/05/2017 THER/PROPH/DIAG INJ SC/IM CPT-4: 15701 05/25/2017 VITAMIN B12 INJECTION CPT- 4: J3420 05/25/2017 THER/PROPH/DIAG INJ SC/IM CPT-4: 28212 05/16/2017 THER/PROPH/DIAG INJ SC/IM CPT-4: 00926 05/01/2017 THER/PROPH/DIAG INJ SC/IM CPT-4: 16178 04/18/2017 THER/PROPH/DIAG INJ SC/IM CPT-4: 51916 04/06/2017 ADMIN INFLUENZA VIRUS VAC CPT-4: G0008 03/22/2017 FLU VACC PRSV FREE INC ANTIG CPT-4: 95975 03/22/2017 THER/PROPH/DIAG INJ SC/IM CPT-4: 27551 03/09/2017 THER/PROPH/DIAG INJ SC/IM CPT-4: 72584 02/23/2017 THER/PROPH/DIAG INJ SC/IM CPT-4: 52603 02/09/2017 THER/PROPH/DIAG INJ SC/IM CPT-4: 43386 01/23/2017 THER/PROPH/DIAG INJ SC/IM CPT-4: 61201 01/10/2017 THER/PROPH/DIAG INJ SC/IM CPT-4: 24551 12/28/2016 THER/PROPH/DIAG INJ SC/IM CPT-4: 38441 12/14/2016 THER/PROPH/DIAG INJ SC/IM CPT-4: 13953 11/24/2016 URINALYSIS NONAUTO W/O SCOPE CPT-4: 64654 11/07/2016 THER/PROPH/DIAG INJ SC/IM CPT-4: 72968 11/07/2016 THER/PROPH/DIAG INJ SC/IM CPT-4: 62621 10/24/2016 THER/PROPH/DIAG INJ SC/IM CPT-4: 53704 09/29/2016 THER/PROPH/DIAG INJ SC/IM CPT-4: 33572 08/29/2016 THER/PROPH/DIAG INJ SC/IM CPT-4: 06326 08/04/2016 THER/PROPH/DIAG INJ SC/IM CPT-4: 87192 07/21/2016 THER/PROPH/DIAG INJ SC/IM CPT-4: 27318 07/05/2016 THER/PROPH/DIAG INJ SC/IM CPT-4: 83777 06/22/2016 URINALYSIS NONAUTO W/O SCOPE CPT-4: 37399 06/22/2016 THER/PROPH/DIAG INJ SC/IM CPT-4: 19895 06/09/2016 PPPS, SUBSEQ VISIT CPT- 4: G0439 05/30/2016 ADMIN PNEUMOCOCCAL VACCINE SNOMED CT: 53676183 CPT-4: G0009 05/25/2016 Pneumococcal Polysaccharide Vaccine, 23-Valent, Ad CPT-4: 35666 05/25/2016 THER/PROPH/DIAG INJ SC/IM CPT-4: 49897 05/25/2016 THER/PROPH/DIAG INJ SC/IM CPT-4: 56991 05/10/2016 TRIAMCINOLONE ACET INJ NOS CPT-4: J3301 04/26/2016 VITAMIN B12 INJECTION CPT- 4: J3420 04/26/2016 THER/PROPH/DIAG INJ SC/IM CPT-4: 38327 04/11/2016 THER/PROPH/DIAG INJ SC/IM CPT-4: 09813 03/31/2016 ADMIN INFLUENZA VIRUS VAC CPT-4: G0008 03/15/2016 FLU VACC 4 STEPHANIE [address] YRS PLUS IM SNOMED CT: 67326203 CPT-4: 41256 03/15/2016 THER/PROPH/DIAG INJ SC/IM CPT-4: 26168 02/25/2016 THER/PROPH/DIAG INJ SC/IM CPT-4: 45601 02/02/2016 THER/PROPH/DIAG INJ SC/IM CPT-4: 45676 01/18/2016 VITAMIN B12 INJECTION CPT- 4: J3420 12/29/2015 THER/PROPH/DIAG INJ SC/IM CPT-4: 38871 12/29/2015 THER/PROPH/DIAG INJ SC/IM CPT-4: 07882 12/08/2015 THER/PROPH/DIAG INJ SC/IM CPT-4: 73394 11/23/2015 URINALYSIS NONAUTO W/O SCOPE CPT-4: 31486 11/23/2015 THER/PROPH/DIAG INJ SC/IM CPT-4: 42532 11/11/2015 THER/PROPH/DIAG INJ SC/IM CPT-4: 40706 10/29/2015 THER/PROPH/DIAG INJ SC/IM CPT-4: 70988 10/12/2015 VITAMIN B12 INJECTION CPT- 4: J3420 10/12/2015 THER/PROPH/DIAG INJ SC/IM CPT-4: 53930 09/29/2015 THER/PROPH/DIAG INJ SC/IM CPT-4: 62522 09/17/2015 THER/PROPH/DIAG INJ SC/IM CPT-4: 48751 09/03/2015 THER/PROPH/DIAG INJ SC/IM CPT-4: 21111 08/17/2015 THER/PROPH/DIAG INJ SC/IM CPT-4: 62758 08/06/2015 THER/PROPH/DIAG INJ SC/IM CPT-4: 53557 07/22/2015 THER/PROPH/DIAG INJ SC/IM CPT-4: 99906 07/08/2015 THER/PROPH/DIAG INJ SC/IM CPT-4: 06657 06/23/2015 THER/PROPH/DIAG INJ SC/IM CPT-4: 11875 06/08/2015 THER/PROPH/DIAG INJ SC/IM CPT-4: 84551 05/27/2015 DESTRUCT PREMALG LESION CPT-4: 90031 05/19/2015 DESTRUCT PREMALG LES 2-14 CPT-4: 03415 05/19/2015 THER/PROPH/DIAG INJ SC/IM CPT-4: 56732 05/12/2015 VITAMIN B12 INJECTION CPT- 4: J3420 05/12/2015 THER/PROPH/DIAG INJ SC/IM CPT-4: 90071 04/30/2015 VITAMIN B12 INJECTION CPT- 4: J3420 04/30/2015 THER/PROPH/DIAG INJ SC/IM CPT-4: 77231 04/16/2015 THER/PROPH/DIAG INJ SC/IM CPT-4: 40497 04/02/2015 VITAMIN B12 INJECTION CPT- 4: J3420 04/02/2015 THER/PROPH/DIAG INJ SC/IM CPT-4: 30046 03/18/2015 THER/PROPH/DIAG INJ SC/IM CPT-4: 63158 03/03/2015 THER/PROPH/DIAG INJ SC/IM CPT-4: 07654 02/18/2015 THER/PROPH/DIAG INJ SC/IM CPT-4: 07316 02/04/2015 VITAMIN B12 INJECTION CPT- 4: J3420 02/04/2015 THER/PROPH/DIAG INJ SC/IM CPT-4: 85615 01/22/2015 THER/PROPH/DIAG INJ SC/IM CPT-4: 78061 01/08/2015 VITAMIN B12 INJECTION CPT- 4: J3420 01/08/2015 THER/PROPH/DIAG INJ SC/IM CPT-4: 42924 12/25/2014 VITAMIN B12 INJECTION CPT- 4: J3420 12/25/2014 THER/PROPH/DIAG INJ SC/IM CPT-4: 80159 12/10/2014 VITAMIN B12 INJECTION CPT- 4: J3420 12/10/2014 THER/PROPH/DIAG INJ SC/IM CPT-4: 09694 11/26/2014 VITAMIN B12 INJECTION CPT- 4: J3420 11/26/2014 THER/PROPH/DIAG INJ SC/IM CPT-4: 09954 11/12/2014 VITAMIN B12 INJECTION CPT- 4: J3420 11/12/2014 THER/PROPH/DIAG INJ SC/IM CPT-4: 69028 10/28/2014 Vital Signs Date Vital 02/26/2018 Blood Pressure 1: 130/72 Code: 8480-6 BMI: 27.9 Code: 80008-1 Heart Rate 1: 72 bpm Height: 5'6" SpO2: 93% Weight: 173 lbs 12/12/2017 Blood Pressure 1: 126/74 Code: 8480-6 BMI: 27.4 Code: 10026-9 Heart Rate 1: 83 bpm Height: 5'6" SpO2: 98% Weight: 170 lbs 12/04/2017 Blood Pressure 1: 104/68 Code: 8480-6 BMI: 28.2 Code: 02568-7 Heart Rate 1: 85 bpm Height: 5'6" SpO2: 95% Weight: 175 lbs 11/20/2017 Blood Pressure 1: 130/68 Code: 8480-6 BMI: 28.4 Code: 85019-2 Heart Rate 1: 80 bpm Height: 5'6" SpO2: 99% Weight: 176 lbs 11/02/2017 Height: 5'6" 09/15/2017 Blood Pressure 1: 134/74 Code: 8480-6 BMI: 28.4 Code: 61068-4 Heart Rate 1: 88 bpm Height: 5'6" SpO2: 98% Weight: 176 lbs 09/07/2017 Blood Pressure 1: 124/64 Code: 8480-6 Heart Rate 1: 90 bpm Height: SpO2: 97% Weight: 08/30/2017 Blood Pressure 1: 140/76 Code: 8480-6 BMI: 28.4 Code: 88929-5 Heart Rate 1: 90 bpm Height: 5'6" SpO2: 94% Weight: 176 lbs 07/06/2017 Blood Pressure 1: 132/66 Code: 8480-6 BMI: 29.4 Code: 93791-5 Heart Rate 1: 85 bpm Height: 5'6" SpO2: 97% Weight: 182 lbs 06/20/2017 Blood Pressure 1: 134/86 Code: 8480-6 Heart Rate 1: 90 bpm Height: SpO2: 98% Weight: 06/05/2017 BMI: 29.1 Code: 66413-6 Height: 5'6" Weight: 180 lbs 05/25/2017 Blood Pressure 1: 126/76 Code: 8480-6 BMI: 29.1 Code: 86623-5 Heart Rate 1: 77 bpm Height: 5'6" SpO2: 97% Weight: 180 lbs 03/23/2017 Blood Pressure 1: 142/84 Code: 8480-6 BMI: 29.1 Code: 69020-4 Heart Rate 1: 91 bpm Height: 5'6" SpO2: 97% Weight: 180 lbs 01/23/2017 Blood Pressure 1: 150/90 Code: 8480-6 BMI: 29.9 Code: 21089-6 Heart Rate 1: 81 bpm Height: 5'6" SpO2: 97% Weight: 185 lbs 11/02/2016 Blood Pressure 1: 148/78 Code: 8480-6 BMI: 29.7 Code: 39567-1 Heart Rate 1: 87 bpm Height: 5'6" SpO2: 97% Weight: 184 lbs 09/29/2016 Blood Pressure 1: 128/78 Code: 8480-6 BMI: 29.7 Code: 85071-5 Heart Rate 1: 78 bpm Height: 5'6" SpO2: 98% Weight: 184 lbs 07/26/2016 Blood Pressure 1: 138/72 Code: 8480-6 BMI: 30.0 Code: 88368-4 Heart Rate 1: 85 bpm Height: 5'6" SpO2: 97% Weight: 186 lbs 05/30/2016 Blood Pressure 1: 132/76 Code: 8480-6 BMI: 30.0 Code: 20949-9 Heart Rate 1: 80 bpm Height: 5'6" SpO2: 98% Waist Measure (cm): 99 cm Weight: 186 lbs 05/25/2016 Blood Pressure 1: 132/76 Code: 8480-6 BMI: 30.0 Code: 88689-1 Heart Rate 1: 80 bpm Height: 5'6" SpO2: 96% Weight: 186 lbs 02/25/2016 Blood Pressure 1: 110/64 Code: 8480-6 Heart Rate 1: 82 bpm Height: SpO2: 96% Weight: 01/25/2016 Blood Pressure 1: 118/70 Code: 8480-6 BMI: 30.0 Code: 70984-8 Heart Rate 1: 78 bpm Height: 5'6" SpO2: 97% Weight: 186 lbs 11/11/2015 Blood Pressure 1: 128/82 Code: 8480-6 BMI: 29.2 Code: 54339-6 Heart Rate 1: 86 bpm Height: 5'6" SpO2: 96% Temperature: 36.4 (C) / 97.6 (F) Weight: 181 lbs 10/12/2015 Blood Pressure 1: 118/70 Code: 8480-6 BMI: 29.2 Code: 29781-3 Heart Rate 1: 81 bpm Height: 5'6" SpO2: 95% Weight: 181 lbs 09/03/2015 Blood Pressure 1: 138/78 Code: 8480-6 BMI: 29.9 Code: 55911-4 Heart Rate 1: 88 bpm Height: 5'6" SpO2: 97% Weight: 185 lbs 05/19/2015 Blood Pressure 1: 146/78 Code: 8480-6 BMI: 30.0 Code: 61829-2 Heart Rate 1: 66 bpm Height: 5'6" SpO2: 97% Weight: 186 lbs 05/12/2015 Blood Pressure 1: 120/70 Code: 8480-6 BMI: 29.9 Code: 01582-1 Heart Rate 1: 89 bpm Height: 5'6" SpO2: 95% Weight: 185 lbs 01/13/2015 Blood Pressure 1: 140/90 Code: 8480-6 BMI: 30.3 Code: 26049-6 Heart Rate 1: 84 bpm Height: 5'6" SpO2: 95% Weight: 188 lbs 12/16/2014 Blood Pressure 1: 140/82 Code: 8480-6 BMI: 29.5 Code: 00540-8 Heart Rate 1: 86 bpm Height: 5'6" [...] data Encounters Encounter Performer Location Codes Date ([id number]) 98040 EST. PATIENT, LEVEL III Diagnosis: Pain in left shoulder[ICD10: M25.512] Diagnosis: Pain in right shoulder[ICD10: M25.511] Yarely Vega MD, [facility] CPT-4: 37390 02/26/2018 ([id number]) 99429 EST. PATIENT, LEVEL III Diagnosis: Nausea[ICD10: R11.0] Diagnosis: Cough[ICD10: R05] Diagnosis: 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 factor deficiency[ICD10: D51.0] Janet Vega MD, [facility] CPT-4: 52535 12/12/2017 ([id number]) 15501 EST. PATIENT, LEVEL IV Diagnosis: Acute bronchitis due to Hemophilus influenzae[ICD10: J20.1] Diagnosis: Cough[ICD10: R05] Yarely Vega MD, [facility] CPT-4: 63151 12/04/2017 ([id number]) 52858 EST. PATIENT, LEVEL IV Diagnosis: Essential (primary) hypertension[ICD10: I10] Diagnosis: Cough[ICD10: R05] Diagnosis: Chronic atrial fibrillation[ICD10: I48.2] Yarely Vega MD, [facility] CPT-4: 02403 11/20/2017 ([id number]) 76092 EST. PATIENT, LEVEL III Diagnosis: Cough[ICD10: R05] Diagnosis: Acute upper respiratory infection, unspecified[ICD10: J06.9] Janet Vega MD, [facility] CPT-4: 62430 09/15/2017 [id number] EST. PATIENT, LEVEL III Diagnosis: Laceration without foreign body of right forearm, initial encounter[ICD10: S51.811A] Diagnosis: Other vitamin B12 deficiency anemias[ICD10: D51.8] Brianna Vega MD, [facility] CPT-4: 12111 09/07/2017 ([id number]) 39979 EST. PATIENT, LEVEL IV Diagnosis: Chronic atrial fibrillation[ICD10: I48.2] Diagnosis: Other allergic rhinitis[ICD10: J30.89] Diagnosis: Encounter for therapeutic drug level monitoring[ICD10: Z51.81] Yarely Vega MD, [facility] CPT-4: 42913 08/30/2017 ([id number]) 34235 EST. PATIENT, LEVEL IV Diagnosis: Atrophy of thyroid (acquired)[ICD10: E03.4] Diagnosis: Cough[ICD10: R05] Diagnosis: Laceration without foreign body of left forearm, initial encounter[ICD10: S51.812A] Diagnosis: Candidiasis of skin and nail[ICD10: B37.2] Diagnosis: Other vitamin B12 deficiency anemias[ICD10: D51.8] Diagnosis: Slow transit constipation[ICD10: K59.01] Yarely Vega MD, [facility] CPT-4: 22850 07/06/2017 [id number] EST. PATIENT, LEVEL III Diagnosis: Other vitamin B12 deficiency anemias[ICD10: D51.8] Diagnosis: Acute laryngopharyngitis[ICD10: J06.0] Diagnosis: Other allergic rhinitis[ICD10: J30.89] Brianna Vega MD, [facility] CPT- 4: 01065 06/20/2017 ([id number]) 34555 EST. PATIENT, LEVEL IV Diagnosis: Essential (primary) hypertension[ICD10: I10] Diagnosis: Chronic atrial fibrillation[ICD10: I48.2] Diagnosis: Atrophy of thyroid (acquired)[ICD10: E03.4] Diagnosis: 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 factor deficiency[ICD10: D51.0] Yarely Vega MD, [facility] CPT-4: 64417 05/25/2017 ([id number]) 03409 EST. 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 PATIENT, LEVEL IV Diagnosis: Type 2 diabetes mellitus without complications[ICD10: E11.9] Diagnosis: Essential (primary) hypertension[ICD10: I10] Diagnosis: Headache[ICD10: R51] Diagnosis: Atrophy of thyroid (acquired)[ICD10: E03.4] Diagnosis: Vitamin B12 deficiency anemia, unspecified[ICD10: D51.9] Yarely Vega MD, [facility] CPT-4: 10798 01/23/2017 48243 EST. PATIENT, LEVEL III Diagnosis: Low back pain[ICD10: M54.5] Diagnosis: Pain in thoracic spine[ICD10: M54.6] Brianna Vega MD, [facility] CPT- 4: 10083 11/02/2016 ([id number]) 59098 EST. PATIENT, LEVEL IV Diagnosis: Essential (primary) hypertension[ICD10: I10] Diagnosis: Other vitamin B12 deficiency anemias[ICD10: D51.8] Diagnosis: Generalized abdominal pain[ICD10: R10.84] Yarely Vega MD [facility] CPT-4: 29766 09/29/2016 ([id number]) 42966 EST. PATIENT, LEVEL IV Diagnosis: Essential (primary) hypertension[ICD10: I10] Yarely Vega MD, [facility] CPT-4: 03938 07/26/2016 ([id number]) 15030 EST. PATIENT, LEVEL IV Diagnosis: Benign lipomatous neoplasm of skin and subcutaneous tissue of right leg[ICD10: D17.23] Diagnosis: Pain in right ankle and joints of right foot[ICD10: M25.571] Diagnosis: Encounter for immunization[ICD10: Z23] Diagnosis: Vitamin B12 deficiency anemia, unspecified[ICD10: D51.9] Yarely Vega MD, [facility] CPT-4: 62938 05/25/2016 [id number] EST. PATIENT, LEVEL III Diagnosis: Other chest pain[ICD10: R07.89] Diagnosis: Other vitamin B12 deficiency anemias[ICD10: D51.8] Brianna Vega MD, [facility] CPT-4: 67516 02/25/2016 ([id number]) 41519 EST. 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 PATIENT, LEVEL III Diagnosis: Other vitamin B12 deficiency anemias[ICD10: D51.8] Diagnosis: Acute nasopharyngitis [common cold][ICD10: J00] Diagnosis: Other allergic rhinitis[ICD10: J30.89] Brianna Vega MD, [facility] CPT- 4: 17078 11/11/2015 ([id number]) 46624 EST. PATIENT, LEVEL IV Diagnosis: Essential tremor[ICD10: G25.0] Diagnosis: Chronic fatigue, unspecified[ICD10: R53.82] Diagnosis: Other hypersomnia[ICD10: G47.19] Diagnosis: Essential (primary) hypertension[ICD10: I10] Yarely Vega MD, [facility] CPT-4: 63724 10/12/2015 ([id number]) 31533 EST. PATIENT, LEVEL IV Diagnosis: Essential (primary) hypertension[ICD10: I10] Diagnosis: Chronic atrial fibrillation[ICD10: I48.2] Diagnosis: Abnormal levels of other serum enzymes[ICD10: R74.8] Diagnosis: Type 2 diabetes mellitus without complications[ICD10: E11.9] Diagnosis: Vitamin B12 deficiency anemia, unspecified[ICD10: D51.9] Yarely Vega MD, [facility] CPT-4: 77644 09/03/2015 ([id number]) 15321 EST. PATIENT, LEVEL III Diagnosis: Nausea[ICD10: R11.0] Diagnosis: Essential tremor[ICD10: G25.0] Diagnosis: Actinic keratosis[ICD10: L57.0] Yarely Vega MD, [facility] CPT-4: 25779 05/19/2015 ([id number]) 57783 EST. PATIENT, LEVEL IV Diagnosis: Vitamin B12 deficiency anemia, unspecified[ICD10: D51.9] Diagnosis: Chronic atrial fibrillation[ICD10: I48.2] Diagnosis: Headache[ICD10: R51] Diagnosis: Chronic fatigue, unspecified[ICD10: R53.82] Diagnosis: Cervicalgia[ICD10: M54.2] Yarely Vega MD, [facility] CPT-4: 36095 05/12/2015 ([id number]) 56536 EST. PATIENT, LEVEL IV Diagnosis: ESSENTIAL HYPERTENSION[ICD9: 401.9] Diagnosis: Afib[ICD9: 427.31] Diagnosis: Anxiety[ICD9: 300.00] Diagnosis: Insomnia[ICD9: 780.52] Yarely Vega MD, [facility] CPT-4: 22226 01/13/2015 ([id number]) OFFICE VISIT, NEW - LEVEL 4 Diagnosis: Hypothyroidism[ICD9: 244.9] Diagnosis: DIABETES TYPE II[ICD9: 250.00] Diagnosis: ESSENTIAL HYPERTENSION[ICD9: 401.9] Diagnosis: Afib[ICD9: 427.31] Diagnosis: Anxiety[ICD9: 300.00] Diagnosis: B12 deficiency[ICD9: 266.2] Janet Vega MD, [facility] CPT-4: 26004 12/16/2014 Plan of Care Planned Activity Notes Codes Status Date Appointment: Injection 04/12/2018 Patient Education: Patient Medication [...] surgical intervention. 02/26/2018 Appointment: Yarely Vega WPtel: [address] [place], [place] [phone] (15 min) Moderate 02/26/2018 Patient Education: Patient Medication Summary Completed 02/26/2018 Care Plan: Referral Order SNOMED-CT : [id number] Pending 02/26/2018 Appointment: Injection 02/08/2018 Patient Education: Patient Medication Summary Completed 02/08/2018 Appointment: Injection 01/24/2018 Patient Education: Patient Medication Summary Completed 01/24/2018 Appointment: Injection 01/10/2018 Patient Education: Patient Medication Summary Completed 01/10/2018 Appointment: Injection 12/27/2017 Patient Education: Patient Medication Summary Completed 12/27/2017 Appointment: Yarely Vega WPtel: [address] [place], [place] [phone] [place] (15 min) Moderate 12/26/2017 Visit Plan: Tuewtk-szwfvpgpo-rindugmx protonix-follow up with Dr Navarro as scheduled Cough-recent bronchitis-symptoms improved-call if symptoms do not completely resolve 12/12/2017 Appointment: [facility] [phone] [phone] (15 min) Moderate 12/12/2017 Patient Education: Patient Medication Summary Completed 12/12/2017 Visit Plan: Bronchitis - acute case of bronchitis identified. Pt has been given antibiotics, breathing treatments as appropriate, and pt has been instructed to call if symptoms are not improved, or if symptoms acutely worsen. Cough - rx for antibiotics as well as cough medication. 12/04/2017 Appointment: [facility] [phone] [facility] (15 min) Moderate 12/04/2017 Patient Education: [...] Fatigue/malaise -Pt was advsied to ask the Employment Specialist the following: ask the heart doctor [...] uncontrolled. 11/20/2017 Appointment: [facility]el[facility] [phone] [facility] (15 min) Moderate 11/20/2017 Patient Education: [...] worse. 09/15/2017 Appointment: Janet Fam WPtel: [phone] [phone] [place] (15 min) Moderate 09/15/2017 Patient Education: Patient Medication Summary Completed 09/15/2017 Appointment: Yarely Vega WPtel: [phone] [facility] [place] (15 min) Moderate 09/11/2017 Visit Plan: Skin tear and Cellulitis - The patient was instructed in appropriate wound care. The patient was instructed to use the antibiotic ointment as per RX. The patient is to call for any change in symptoms, increase in size of the lesion, increase in pain, worsening redness, warmth, discharge. 09/07/2017 Appointment: Brianna Otoole WPtel: [phone] [facility] [place] (10 min) Simple 09/07/2017 Patient Education: Patient Medication Summary Completed 09/07/2017 Visit Plan: Lipoma - left ankle - talk to dr. barnes about possible surgery/laser for treatment of lipoma. Fatigue/malaise -Pt was advsied to ask the Employment Specialist the following: ask the heart doctor [...] Appointment: Injection 08/24/2017 Appointment: Yarely Vega WPtel: [phone] [facility] [place] (15 min) Moderate 08/24/2017 Patient [...] mucinex 07/06/2017 Appointment: [facility]ly [facility]ega [facility]Ptel[facility] [phone] [facility] (15 min) Moderate 07/06/2017 Patient Education: [...] spray. 06/20/2017 Appointment: [facility] [phone] [facility] (15 min) Moderate 06/20/2017 Patient Education: Patient [...] Injection 06/05/2017 Appointment: Brianna Otoole WPtel: [phone] [facility] [facility] - Annual Wellness Visit 06/05/2017 [...] months or q 6 m [facility] based on previous levels of control. 05/25/2017 Appointment: Yarely Vega WPtel: [phone] [facility] (15 min) Moderate 05/25/2017 Patient Education: Patient [...] wall. Fatigue - pt to discuss with Employment Specialist about the possibility of amiodarone causing her fatigue/malaise. 03/23/2017 Appointment: Yarely Vega WPtel: [facility] [facility] (15 min) Moderate 03/23/2017 Patient Education: [...] twice daily. 01/23/2017 Appointment: Yarely Vega WPtel: [facility] [facility] (15 min) Moderate 01/23/2017 Patient Education: [...] WPtel: [phone] [facility] [place] (15 min) Moderate 11/02/2016 Patient Education: [...] carafate 09/29/2016 Appointment: Yarely Vega WPtel: [phone] [facility] [place] (15 min) Moderate 09/29/2016 Patient Education: Patient Medication Summary Completed 09/29/2016 Appointment: Yarely [facility]ega [facility]Ptel[facility] [phone] [facility] [place] (15 min) Moderate 09/27/2016 Appointment: Yarely Vega WPtel: [phone] [facility] [place] (15 min) Moderate 09/20/2016 Appointment: Yarely [facility]ega [facility]Ptel: [phone] [facility] [place] (15 min) Moderate 09/20/2016 Patient Education: Patient Medication Summary Completed 09/06/2016 Appointment: [place] Yarely WPtel: [phone] [facility] [place] (15 min) Moderate 08/30/2016 Appointment: [...] concerns. 07/26/2016 Appointment: Yarely [facility]ega [facility]Ptel: [phone] [facility] [place] (15 min) Moderate 07/26/2016 Patient [...] surrogate. 05/30/2016 App[facility]ment: [facility]toole [facility]el[phone] [facility] - Annual Wellness Visit 05/30/2016 [...] bedtime 05/25/2016 Appointment: Yarely [facility]ega WPtel: [phone] [facility] (15 min) Moderate 05/25/2016 Patient Education: Patient Medication Summary Completed 05/25/2016 Patient Education: Obesity Completed 05/25/2016 Care Plan: Referral Order SNOMED-CT : [id number] Pending 05/25/2016 Appointment: Injection 05/10/2016 Patient Education: Patient Medication Summary Completed 05/10/2016 Appointment: Injection 04/26/2016 Patient Education: Patient Medication Summary Completed 04/26/2016 Appointment: Injection 04/11/2016 Patient Education: Patient Medication Summary Completed 04/11/2016 Appointment: Injection 03/31/2016 Patient Education: Patient Medication Summary Completed 03/31/2016 Patient Education: Patient Medication Summary Completed 03/22/2016 Care Plan: [facility] [id number] Pending 03/22/2016 Appointment: Injection 03/15/2016 Patient Education: [...] any concerns. 02/25/2016 Appointment: Brianna Otoole WPtel: [facility] [place] (15 min) Moderate 02/25/2016 Patient Education: [...] the patients recent sleep study - recommended [facility] patient eval of pt - nocturnal [...] the patients recent sleep study - recommended [facility] patient eval of pt - nocturnal [...] her daughter walking out of clinic after Fazia was rude to her daughter when her [...] case with Faiza's daughter who had left [facility]. She is interested in looking at assisted living facilities for her mom as Faiza's family is for assisted living placement sooner rather than later. 10/12/2015 App[facility]ment: [facility] [id number] [id number] ([facility] min) Moderate 10/12/2015 Patient Education: [...] Completed 08/17/2015 Appointment: [facility] [id number] [id number] (15 min) Moderate 08/11/2015 Appointment: Injection [...] x 2 05/19/2015 Appointment: Yarely Vega WPtel[facility] [id number] ([facility] min) [facility] 05/19/2015 Patient Education: Patient Medication Summary [...] - continue with prn alprazolam. 01/13/2015 Appointment: Gary [facility] [phone] [id number] (15 min) Moderate 01/13/2015 Patient Education: [...] medications. 12/16/2014 [id number] [place] New Patient 12/16/2014 Patient Education: [...] Fatigue/malaise -Pt was advsied to ask the Employment Specialist the following: ask the heart doctor [...] in pain, worsening redness, warmth, discharge. . [id number] protonix-follow up with Dr Navarro as scheduled Cough-recent bronchitis-symptoms improved-call if symptoms do not completely resolve change priolosec to bedtime to see if [...] Fatigue/malaise -Pt was advsied to ask the Employment Specialist the following: ask the heart doctor if there is an alternative to the amiodarone - you may be having side effects from the medication causing you to have pruritus (itching) and feeling like you have body aches, muscle aches, joint pain, fatigue, weight loss (decreased appetite), and pneumonia like symptoms. Congestion - claritin 10mg daily. increase norvasc from 5mg daily to [...] wall. Fatigue - pt to discuss with Employment Specialist about the possibility of amiodarone causing [...] the patients recent sleep study - recommended [place] patient eval of pt - nocturnal oxygen [...] the patients recent sleep study - recommended [facility] patient eval of pt - nocturnal oxygen study - will order - if positive oxygen concentrator with humidification. Schedule thyroid ultrasound Add T3 and digoxin [...]
--- OUTSIDE RECORDS SUMMARY | 2018-12-05 20:55 | XMS REPORT | Continuity of Care Document ---
Author Organization Unknown Address Unknown Allergies Active Description Code Type Severity Reaction Onset Reported/Identified Relationship to Patient Clinical Status Yes codeine [id number] Drug Allergy Unknown N/A 09/09/2008 Yes hydrochlorothiazide [id number] Drug Allergy Unknown N/A 09/09/2008 Yes morphine [id number] Drug Allergy Unknown N/A 09/09/2008 Yes PENCILLIN PENCILLIN Unknown N/A 09/17/2017 Yes Penicillins [id number] Drug Allergy Unknown N/A 01/17/2018 Medications There is no data. Problems Date [...] CHEST PAIN NOS 09/16/2011 Ot V58.66 LONG-TERM (CURRENT) USE OF ASPIRIN 09/16/2011 Ot V58.69 OTH MED,LT,CURRENT USE 10/11/2011 Ot 211.3 BENIGN NEOPLASM LG BOWEL 10/11/2011 Ot 455.0 INT HEMORRHOID W/O COMPL 10/11/2011 Ot 569.3 RECTAL ANAL HEMORRHAGE 05/07/2012 Ot 272.0 PURE HYPERCHOLESTEROLEM 05/07/2012 Ot 401.9 HYPERTENSION NOS 05/07/2012 Ot 530.3 ESOPHAGEAL STRICTURE 05/07/2012 Ot 530.81 ESOPHAGEAL REFLUX 05/07/2012 Ot 553.3 DIAPHRAGMATIC HERNIA 05/07/2012 Ot V58.69 OTH MED,LT,CURRENT USE 09/24/2012 Ot 592.0 CALCULUS OF KIDNEY [...] EGAN MD Ot 414.01 CORONARY ATHEROSCLEROSIS OF [place] CORON 12/21/2012 ARUNA EGAN MD Ot 427.0 [...] MOTTA DO Ot 244.9 HYPOTHYROIDISM NOS 11/25/2013 JAMES MOTTA DO Ot 272.0 PURE HYPERCHOLESTEROLEM 11/25/2013 JAMES MOTTA DO Ot 294.20 DEMENTIA, UNSPECIFIED, WITHOUT BEHAVIORA 11/25/2013 JAMSE MOTTA DO Ot 300.00 ANXIETY STATE NOS 11/25/2013 JAMES MOTTA DO Ot 338.29 OTHER CHRONIC PAIN 11/25/2013 JAMES MOTTA DO Ot 401.9 HYPERTENSION NOS 11/25/2013 JAMES MOTTA [...] ARAGON MD Ot 414.01 CORONARY ATHEROSCLEROSIS OF [place] CORON 05/22/2014 CURT ARAGON MD Ot 416.8 CHR PULMON HEART DIS NEC 05/22/2014 CURT ARAGON MD Ot 427.31 ATRIAL FIBRILLATION 05/22/2014 CURT ARAGON MD Ot 427.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 05/22/2014 CURT ARAGON MD Ot 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 05/22/2014 CURT ARAGON MD Ot 794.30 ABN CARDIOVASC STUDY NOS 05/22/2014 CURT ARAGON MD Ot V45.01 CARDIAC PACEMAKER IN SITU 05/22/2014 CURT ARAGON MD Ot V58.61 ANTICOAGULANTS,LT,CURRENT USE 05/22/2014 CURT ARAGON MD Ot V58.69 OTH MED,LT,CURRENT USE 06/02/2014 KYLE YANG Ot 272.4 06/02/2014 JACQUES PA, KYLE K Ot 401.9 06/02/2014 JACQUES PA, KYLE K Ot 414.00 06/02/2014 JACQUES PA, KYLE K Ot 786.50 06/05/2014 JACQUES PA, KYLE K Ot 272.4 06/05/2014 JACQUES PA, KYLE K Ot 396.3 06/05/2014 JACQUES PA, KYLE K Ot 397.0 06/05/2014 JACQUES PA, KYLE K Ot 401.9 06/05/2014 JACQUES PA, KYLE K Ot 414.00 06/05/2014 JACQUES PA, KYLE K Ot 429.3 06/05/2014 JACQUES PA, KYLE K Ot 786.50 10/22/2014 [place], AIDA Ibarra Ot 272.0 PURE HYPERCHOLESTEROLEM 10/22/2014 [place], AIDA Ibarra Ot 300.00 ANXIETY STATE NOS 10/22/2014 AIDA DUEÑAS MD Ot 311 DEPRESSIVE DISORDER NEC 10/22/2014 AIDA DUEÑAS MD Ot 401.9 HYPERTENSION NOS 10/22/2014 AIDA DUEÑAS MD Ot 427.31 ATRIAL FIBRILLATION 10/22/2014 AIDA DUEÑAS MD Ot 428.0 CONGESTIVE HEART FAILURE NOS 10/22/2014 AIDA DUEÑAS MD Ot 593.9 RENAL URETERAL DIS NOS 10/22/2014 AIDA DUEÑAS MD Ot 724.5 BACKACHE NOS 10/22/2014 AIDA DUEÑAS MD Ot 786.09 RESPIRATORY ABNORM NEC 10/22/2014 AIDA DUEÑAS MD Ot V45.01 CARDIAC PACEMAKER IN SITU 11/18/2014 [...] Vale Ot 611.71 11/18/2014 [place], CURT Montes De Oca Ot 401.9 11/18/2014 [place], CURT Montes De Oca Ot 414.00 11/18/2014 [place], CURT Montes De Oca Ot 434.91 11/18/2014 [place], PJ I [...] MADRIGAL-ALEXANDER PA, KYLE K Ot 401.9 12/22/2014 KYLE YANG Ot 414.00 12/22/2014 KYLE YANG Ot 786.50 12/22/2014 BERTHA DHALIWAL MD Ot 427.31 01/14/2015 LUCIANO SALOMONP Ot 244.9 01/14/2015 LUCIANO SALOMON ASSISTANT SPA DIRECTOR Ot 787.20 03/10/2015 LUCIANO SALOMON ASSISTANT SPA DIRECTOR Ot V76.12 05/06/2015 KALIA DO, JAMES K Ot F03.90 UNSPECIFIED DEMENTIA WITHOUT BEHAVIORAL 05/06/2015 KALIA DO, JAMES K Ot R11.0 NAUSEA 05/06/2015 KALIA DO, JAMES K Ot R51 HEADACHE 05/06/2015 KALIA DO, JAMES K Ot R53.1 WEAKNESS 05/06/2015 KALIA DO, JAMES K Ot Z95.0 PRESENCE OF CARDIAC PACEMAKER 06/09/2015 [place], CARTER Saldivar Ot M25.511 06/09/2015 CARTER BADILLO MD Ot M54.2 06/30/2015 KYLE YANG Ot E78.2 06/30/2015 KYLE YANG Ot I10 06/30/2015 KYLE YANG Ot I25.10 06/30/2015 KYLE YANG Ot I65.23 06/30/2015 CURT ARAGON MD Ot E78.2 06/30/2015 [place], CURT Montes De Oca Ot I10 06/30/2015 CURT ARAGON MD Ot I25.10 07/15/2015 MINO GARCIA MD Ot K21.0 GASTRO-ESOPHAGEAL REFLUX DISEASE WITH ES 07/15/2015 MINO GARCIA MD Ot K44.9 DIAPHRAGMATIC HERNIA WITHOUT OBSTRUCTION 07/27/2015 LUCIANO SALOMON Ot E04.1 10/05/2015 BERTHA DHALIWAL MD Ot Z51.81 ENCOUNTER FOR THERAPEUTIC DRUG LEVEL MON 10/05/2015 BERTHA DHALIWAL MD Ot Z79.899 OTHER MCC (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 THERAPY 10/08/2015 BERTHA DHALIWAL MD Ot Z51.81 ENCOUNTER FOR THERAPEUTIC DRUG LEVEL MON 10/08/2015 BERTHA DHALIWAL MD Ot Z79.899 OTHER MCC (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 THERAPY 10/22/2015 BERTHA DHALIWAL MD Ot Z51.81 ENCOUNTER FOR THERAPEUTIC DRUG LEVEL MON 10/22/2015 BERTHA DHALIWAL MD Ot Z79.899 OTHER MCC (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 THERAPY 11/08/2015 [place], FRANCISCO Hurst Ot J06.9 ACUTE UPPER RESPIRATORY INFECTION, UNSPE 01/06/2016 [place], CARTER Saldivar Ot G47.33 OBSTRUCTIVE SLEEP APNEA (ADULT) (PEDIATR 01/07/2016 [place], CARTER Saldivar Ot G47.33 OBSTRUCTIVE SLEEP APNEA (ADULT) (PEDIATR 01/07/2016 [place], CARTER Saldivar Ot G47.36 SLEEP RELATED HYPOVENTILATION IN CONDITI 01/07/2016 CARTER BADILLO MD Ot R06.83 SNORING 01/20/2016 CARTER BADILLO MD Ot G47.36 SLEEP RELATED HYPOVENTILATION IN CONDITI 01/20/2016 CARTER BADILLO MD Ot R06.83 SNORING 01/22/2016 CARTER BADILLO MD Ot G47.36 SLEEP RELATED HYPOVENTILATION IN CONDITI 01/22/2016 CARTER BADILLO MD Ot R06.83 SNORING 02/26/2016 NOEL ZARAGOZA APRN Ot M54.9 DORSALGIA, UNSPECIFIED 02/26/2016 NOEL ZARAGOZA TRIPLE DRUM OPERATOR Ot R07.9 CHEST PAIN, UNSPECIFIED 02/26/2016 NOEL ZARAGOZA TRIPLE DRUM OPERATOR Ot R61 GENERALIZED HYPERHIDROSIS 02/26/2016 NOEL ZARAGOZA TRIPLE DRUM OPERATOR Ot M54.9 DORSALGIA, UNSPECIFIED 02/26/2016 NOEL ZARAGOZA TRIPLE DRUM OPERATOR Ot R07.9 CHEST PAIN, UNSPECIFIED 02/26/2016 NOEL ZARAGOZA TRIPLE DRUM OPERATOR Ot R61 GENERALIZED HYPERHIDROSIS 03/07/2016 Ot 611.71 MASTODYNIA 03/07/2016 Ot 753.10 CYSTIC KIDNEY DISEASE, UNSPECIFIED 03/07/2016 Ot 790.4 ELEV TRANSAMINASE/LDH 03/07/2016 Ot 780.4 DIZZINESS AND GIDDINESS 03/07/2016 Ot 786.09 RESPIRATORY ABNORM NEC 03/07/2016 Ot 786.50 CHEST PAIN NOS 03/07/2016 Ot V72.84 EXAM PRE-OPERATIVE NOS 03/07/2016 Ot V76.12 OTH SCREEN MAMMO- MALIGN NEOPLASM OF [place] 03/07/2016 Ot 793.80 UNSPEC ABNORMAL MAMMOGRAM 03/07/2016 Ot V72.84 EXAM PRE-OPERATIVE NOS 03/07/2016 [place], ARUNA Vale Ot 611.71 MASTODYNIA 03/07/2016 [place], CURT Montes De Oca Ot 401.9 HYPERTENSION NOS 03/07/2016 [place], CURT Montes De Oca Ot 414.00 CORON ATHEROSCLER NOS TYPE VESSEL, NATIV 03/07/2016 [place], CURT Montes De Oca Ot 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 OCCLUSION NOS W CEREBRAL IN 03/07/2016 [place], PJ Wells Ot 553.3 DIAPHRAGMATIC HERNIA 03/07/2016 [place], [...] Ot 427.31 ATRIAL FIBRILLATION 03/07/2016 LUCIANO SALOMON ASSISTANT SPA DIRECTOR Ot 244.9 HYPOTHYROIDISM NOS 03/07/2016 LUCIANO SALOMON ASSISTANT SPA DIRECTOR Ot 787.20 DYSPHAGIA, UNSPECIFIED 03/07/2016 LUCIANO SALOMON ASSISTANT SPA DIRECTOR Ot V76.12 OTH SCREEN MAMMO-MALIGN NEOPLASM OF [place] 03/07/2016 KYLE YANG Ot E78.2 MIXED HYPERLIPIDEMIA 03/07/2016 KYLE YANG Ot I10 ESSENTIAL (PRIMARY) HYPERTENSION 03/07/2016 KYLE YANG Ot I25.10 ATHSCL HEART DISEASE OF [place] CORONARY 03/07/2016 KYLE YANG Ot I65.23 OCCLUSION AND STENOSIS OF BILATERAL [place] 03/07/2016 CURT ARAGON MD Ot E78.2 MIXED HYPERLIPIDEMIA 03/07/2016 CURT ARAGON MD Ot I10 ESSENTIAL (PRIMARY) HYPERTENSION 03/07/2016 CURT ARAGON MD Ot I25.10 ATHSCL HEART DISEASE OF [place] CORONARY 03/07/2016 [place], CARTER Saldivar Ot M25.511 PAIN IN RIGHT SHOULDER 03/07/2016 CARTER BADILLO MD Ot M54.2 CERVICALGIA 03/07/2016 LUCIANO SALOMON ASSISTANT SPA DIRECTOR Ot E04.1 NONTOXIC SINGLE THYROID NODULE 03/07/2016 MINO GARCIA MD Ot R13.10 DYSPHAGIA, UNSPECIFIED 03/07/2016 MINO GARCIA MD Ot Z01.818 ENCOUNTER FOR OTHER PREPROCEDURAL EXAMIN 03/07/2016 BERTHA DHALIWAL MD Ot Z51.81 ENCOUNTER FOR THERAPEUTIC DRUG LEVEL MON 03/07/2016 BERTHA DHALIWAL MD Ot Z79.899 OTHER MCC (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 THERAPY 03/07/2016 NOEL ZARAGOZA APRN Ot M54.9 DORSALGIA, UNSPECIFIED 03/07/2016 NOEL ZARAGOZA APRN Ot R07.9 CHEST PAIN, UNSPECIFIED 03/07/2016 NOEL ZARAGOZA APRN Ot R61 GENERALIZED HYPERHIDROSIS 03/07/2016 NOEL ZARAGOZA APRN Ot Z12.31 ENCNTR SCREEN MAMMOGRAM FOR MALIGNANT NE 03/08/2016 NOEL ZARAGOZA APRN Ot Z12.31 ENCNTR SCREEN MAMMOGRAM FOR MALIGNANT NE 03/08/2016 NOEL ZARAGOZA TRIPLE DRUM OPERATOR Ot Z12.31 ENCNTR SCREEN MAMMOGRAM FOR MALIGNANT NE 03/08/2016 NOEL ZARAGOZA TRIPLE DRUM OPERATOR Ot Z12.31 ENCNTR SCREEN MAMMOGRAM FOR MALIGNANT NE 03/17/2016 NOEL ZARAGOZA TRIPLE DRUM OPERATOR Ot M54.9 DORSALGIA, UNSPECIFIED 03/17/2016 NOEL ZARAGOZA TRIPLE DRUM OPERATOR Ot R07.9 CHEST PAIN, UNSPECIFIED 03/17/2016 NOEL ZARAGOZA TRIPLE DRUM OPERATOR Ot R61 GENERALIZED HYPERHIDROSIS 03/17/2016 NOEL ZARAGOZA TRIPLE DRUM OPERATOR Ot Z12.31 ENCNTR SCREEN MAMMOGRAM FOR MALIGNANT NE 06/30/2016 Ot 780.4 DIZZINESS AND GIDDINESS 06/30/2016 Ot 786.09 RESPIRATORY ABNORM NEC 06/30/2016 Ot 786.50 CHEST PAIN NOS 06/30/2016 Ot V72.84 EXAM PRE-OPERATIVE NOS 06/30/2016 Ot V76.12 OTH SCREEN MAMMO- MALIGN NEOPLASM OF [place] 06/30/2016 Ot 793.80 UNSPEC ABNORMAL MAMMOGRAM 06/30/2016 Ot V72.84 EXAM PRE-OPERATIVE NOS 06/30/2016 [place] N[place], ARUNA Vale Ot [...] Ot 427.31 ATRIAL FIBRILLATION 06/30/2016 LUCIANO SALOMON ASSISTANT SPA DIRECTOR Ot 244.9 HYPOTHYROIDISM NOS 06/30/2016 LUCIANO SALOMON ASSISTANT SPA DIRECTOR Ot 787.20 DYSPHAGIA, UNSPECIFIED 06/30/2016 LUCIANO SALOMON ASSISTANT SPA DIRECTOR Ot V76.12 OTH SCREEN MAMMO-MALIGN NEOPLASM OF [place] 06/30/2016 JACQUES QUINTANILLA KYLE K Ot E78.2 MIXED HYPERLIPIDEMIA 06/30/2016 JACQUES QUINTANILLA KYLE K Ot I10 ESSENTIAL (PRIMARY) HYPERTENSION 06/30/2016 JACQUES QUINTANILLA KYLE Natali Ot I25.10 ATHSCL HEART DISEASE OF [place] CORONARY 06/30/2016 KYLE YANG Ot I65.23 OCCLUSION AND STENOSIS OF BILATERAL [place] 06/30/2016 CURT ARAGON MD Ot E78.2 MIXED HYPERLIPIDEMIA 06/30/2016 CURT ARAGON MD Ot I10 ESSENTIAL (PRIMARY) HYPERTENSION 06/30/2016 CURT ARAGON MD Ot I25.10 ATHSCL HEART DISEASE OF [place] CORONARY 06/30/2016 [place], CARTER Saldivar Ot M25.511 PAIN IN RIGHT SHOULDER 06/30/2016 CARTER BADILLO MD Ot M54.2 CERVICALGIA 06/30/2016 LUCIANO SALOMON ASSISTANT SPA DIRECTOR Ot E04.1 NONTOXIC SINGLE THYROID NODULE 06/30/2016 MINO GARCIA MD Ot R13.10 DYSPHAGIA, UNSPECIFIED 06/30/2016 MINO GARCIA MD Ot Z01.818 ENCOUNTER FOR OTHER PREPROCEDURAL EXAMIN 06/30/2016 BERTHA DHALIWAL MD Ot Z51.81 ENCOUNTER FOR THERAPEUTIC DRUG LEVEL MON 06/30/2016 BERTHA DHALIWAL MD Ot Z79.899 OTHER MCC (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 THERAPY 06/30/2016 NOEL ZARAGOZA TRIPLE DRUM OPERATOR Ot M54.9 DORSALGIA, UNSPECIFIED 06/30/2016 NOEL ZARAGOZA TRIPLE DRUM OPERATOR Ot R07.9 CHEST PAIN, UNSPECIFIED 06/30/2016 NOEL ZARAGOZA TRIPLE DRUM OPERATOR Ot R61 GENERALIZED HYPERHIDROSIS 06/30/2016 NOEL ZARAGOZA TRIPLE DRUM OPERATOR Ot Z12.31 ENCNTR SCREEN MAMMOGRAM FOR MALIGNANT NE 06/30/2016 Ot 780.4 DIZZINESS AND GIDDINESS 06/30/2016 Ot 786.09 RESPIRATORY ABNORM NEC 06/30/2016 Ot 786.50 CHEST PAIN NOS 06/30/2016 Ot V72.84 EXAM PRE-OPERATIVE NOS 06/30/2016 Ot V76.12 OTH SCREEN MAMMO- MALIGN NEOPLASM OF [place] 06/30/2016 Ot 793.80 UNSPEC ABNORMAL MAMMOGRAM 06/30/2016 Ot V72.84 EXAM PRE-OPERATIVE NOS 06/30/2016 [place], ARUNA Vale Ot [...] 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 06/30/2016 JACQUES QUINTANILLA KYLE Hurst Ot 397.0 TRICUSPID VALVE DISEASE 06/30/2016 JACQUES [...] Ot 427.31 ATRIAL FIBRILLATION 06/30/2016 LUCIANO SALOMON ASSISTANT SPA DIRECTOR Ot 244.9 HYPOTHYROIDISM NOS 06/30/2016 LUCIANO SALOMON ASSISTANT SPA DIRECTOR Ot 787.20 DYSPHAGIA, UNSPECIFIED 06/30/2016 LUCIANO SALOMON ASSISTANT SPA DIRECTOR Ot V76.12 OTH SCREEN MAMMO-MALIGN NEOPLASM OF [place] 06/30/2016 JACQUES QUINTANILLA KYLE Natali Ot E78.2 MIXED HYPERLIPIDEMIA 06/30/2016 JACQUES QUINTANILLA KYLE K Ot I10 ESSENTIAL (PRIMARY) HYPERTENSION 06/30/2016 JACQUES QUINTANILLA KYLE Natali Ot I25.10 ATHSCL HEART DISEASE OF [place] CORONARY 06/30/2016 JACQUES QUINTANILLA KYLE K Ot I65.23 OCCLUSION AND STENOSIS OF [place]ILATERAL [place] 06/30/2016 CURT ARAGON MD Ot E78.2 MIXED HYPERLIPIDEMIA 06/30/2016 CURT ARAGON MD Ot I10 ESSENTIAL (PRIMARY) HYPERTENSION 06/30/2016 CURT ARAGON MD Ot I25.10 ATHSCL HEART DISEASE OF [place] CORONARY 06/30/2016 CARTER BADILLO MD, Ot M25.511 PAIN IN RIGHT SHOULDER 06/30/2016 CARTER BADILLO MD, Ot M54.2 CERVICALGIA 06/30/2016 LUCIANO SALOMON ASSISTANT SPA DIRECTOR Ot E04.1 NONTOXIC SINGLE THYROID NODULE 06/30/2016 [place]ATION, MINO Ot R13.10 DYSPHAGIA, UNSPECIFIED 06/30/2016 [place], MINO Ot Z01.818 ENCOUNTER FOR OTHER PREPROCEDURAL EXAMIN 06/30/2016 BERTHA DHALIWAL MD Ot Z51.81 ENCOUNTER FOR THERAPEUTIC DRUG LEVEL MON 06/30/2016 BERTHA DHALIWAL MD Ot Z79.899 OTHER BRAKE LINING MAKER (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 THERAPY 06/30/2016 NOEL ZARAGOZA TRIPLE DRUM OPERATOR Ot M54.9 DORSALGIA, UNSPECIFIED 06/30/2016 NOEL ZARAGOZA TRIPLE DRUM OPERATOR Ot R07.9 CHEST PAIN, UNSPECIFIED 06/30/2016 NOEL ZARAGOZA TRIPLE DRUM OPERATOR Ot R61 GENERALIZED HYPERHIDROSIS 06/30/2016 NOEL ZARAGOZA TRIPLE DRUM OPERATOR Ot Z12.31 ENCNTR SCREEN MAMMOGRAM FOR MALIGNANT NE 07/01/2016 BLANCHO DPM, SNOW Frias Ot 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 07/01/2016 BLANCHO DPM, SNOW Frias Ot 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 07/05/2016 BLANCHO DPM, SNOW Frias Ot 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 07/06/2016 KYLE YANG K Ot 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, 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 07/07/2016 JACQUES QUINTANILLA, KYLE K Ot 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, 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 07/11/2016 JACQUES QUINTANILLA, KYLE K Ot 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, 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 07/28/2016 BLANCHO DPM, SNOW Frias Ot 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 08/09/2016 CARTER BADILLO MD Ot E04.2 NONTOXIC MULTINODULAR GOITER 08/09/2016 CARTER BADILLO MD Ot I25.10 ATHSCL HEART DISEASE OF [place] CORONARY 08/09/2016 CARTER BADILLO MD Ot I51.7 CARDIOMEGALY 08/09/2016 CARTER BADILLO MD Ot 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, 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 08/09/2016 CARTER BADILLO MD Ot K44.9 DIAPHRAGMATIC HERNIA WITHOUT OBSTRUCTION 08/20/2016 BERTHA QUINTANILLATAD Shiloh Ot I10 ESSENTIAL (PRIMARY) HYPERTENSION 08/20/2016 BERTHA QUINTANILLATAD Shiloh Ot L76.31 POSTPROC HEMATOMA OF SKIN, SUBCU FOL A D 08/20/2016 BERTHA QUINTANILLATAD Shiloh Ot T81.4XXA INFECTION FOLLOWING A PROCEDURE, INITIAL 08/20/2016 BERTHA QUINTANILLATAD Shiloh Ot Z79.899 OTHER BRAKE LINING MAKER (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 THERAPY 08/20/2016 BERTHA QUINTANILLATAD Ot Z95.0 PRESENCE OF CARDIAC PACEMAKER 08/21/2016 BERTHA QUINTANILLATAD Ot T81.4XXA INFECTION FOLLOWING A PROCEDURE, INITIAL 08/22/2016 BERTHA QUINTANILLA TAD Shiloh Ot I10 ESSENTIAL (PRIMARY) HYPERTENSION 08/22/2016 BERTHA QUINTANILLATAD Shiloh Ot L76.31 POSTPROC HEMATOMA OF SKIN, SUBCU FOL A D 08/22/2016 BERTHA QUINTANILLATAD Shiloh Ot T81.4XXA INFECTION FOLLOWING A PROCEDURE, INITIAL 08/22/2016 BERTHA QUINTANILLATAD Shiloh Ot Z79.899 OTHER BRAKE LINING MAKER (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 THERAPY 08/22/2016 BERTHA QUINTANILLATAD Shiloh Ot Z95.0 PRESENCE OF CARDIAC PACEMAKER 08/23/2016 BERTHA QUINTANILLATAD Shiloh Ot T81.4XXA INFECTION FOLLOWING A PROCEDURE, INITIAL 08/28/2016 BERTHA QUINTANILLATAD Ot T81.4XXA INFECTION FOLLOWING A PROCEDURE, INITIAL 09/16/2016 Ot 780.4 DIZZINESS AND GIDDINESS 09/16/2016 Ot 786.09 RESPIRATORY ABNORM NEC 09/16/2016 Ot 786.50 CHEST PAIN NOS 09/16/2016 Ot V72.84 EXAM PRE-OPERATIVE NOS 09/16/2016 Ot V76.12 OTH SCREEN MAMMO- MALIGN NEOPLASM OF [place] 09/16/2016 Ot 793.80 UNSPEC ABNORMAL MAMMOGRAM 09/16/2016 Ot V72.84 EXAM PRE-OPERATIVE NOS 09/16/2016 [place], ARUNA Vale Ot 611.71 MASTODYNIA 09/16/2016 [place], CURT Montes De Oca Ot 401.9 HYPERTENSION NOS 09/16/2016 CURT ARAGON MD Ot 414.00 CORON ATHEROSCLER NOS TYPE VESSEL, NATIV 09/16/2016 LANDEN ARAGON MDHAR J Ot 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 OCCLUSION NOS W CEREBRAL IN 09/16/2016 [place], PJ Wells Ot 553.3 DIAPHRAGMATIC HERNIA 09/16/2016 [place], PJ Wells Ot 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, ACQUIRED 09/16/2016 [place], PJ Wells Ot 789.00 ABDOMINAL PAIN, UNSPECIFIED SITE 09/16/2016 [place], ARUNA Vale Ot V76.12 OTH SCREEN MAMMO-MALIGN NEOPLASM OF [place] 09/16/2016 JACQUES QUINTANILLA KYLE K Ot 272.4 HYPERLIPIDEMIA NEC/NOS 09/16/2016 JACQUES QUINTANILLA KYLE K Ot 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 09/16/2016 KYLE YANG K Ot 397.0 TRICUSPID VALVE DISEASE 09/16/2016 JACQUES QUINTANILLA KYLE K Ot 401.9 HYPERTENSION NOS 09/16/2016 JACQUES QUINTANILLA KYLE K Ot 414.00 CORON ATHEROSCLER NOS TYPE VESSEL, NATIV 09/16/2016 JACQUES QUINTANILLA KYLE K Ot 429.3 CARDIOMEGALY 09/16/2016 JACQUES QUINTANILLA KYLE K Ot 786.50 CHEST PAIN NOS 09/16/2016 JACQUES QUINTANILLA KYLE K Ot 272.4 HYPERLIPIDEMIA NEC/NOS 09/16/2016 JCAQUES QUINTANILLA KYLE K Ot 401.9 HYPERTENSION NOS 09/16/2016 JACQUES QUINTANILLA KYLE K Ot 414.00 CORON ATHEROSCLER NOS TYPE VESSEL, NATIV 09/16/2016 AURA YANGTH K Ot 786.50 CHEST PAIN NOS 09/16/2016 [place], BERTHA Daniels Ot 427.31 ATRIAL FIBRILLATION 09/16/2016 LUCIANO SALOMON ASSISTANT SPA DIRECTOR Ot 244.9 HYPOTHYROIDISM NOS 09/16/2016 LUCIANO SALOMON ASSISTANT SPA DIRECTOR Ot 787.20 DYSPHAGIA, UNSPECIFIED 09/16/2016 LUCIANO SALOMON ASSISTANT SPA DIRECTOR Ot V76.12 OTH SCREEN MAMMO-MALIGN NEOPLASM OF [place] 09/16/2016 JACQUES QUINTANILLA KYLE K Ot E78.2 MIXED HYPERLIPIDEMIA 09/16/2016 JACQUES QUINTANILLA KYLE K Ot I10 ESSENTIAL (PRIMARY) HYPERTENSION 09/16/2016 KYLE YANG Ot I25.10 ATHSCL HEART DISEASE OF [place] CORONARY 09/16/2016 KYLE YANG Ot I65.23 OCCLUSION AND STENOSIS OF BILATERAL [place] 09/16/2016 CURT ARAGON MD Ot E78.2 MIXED HYPERLIPIDEMIA 09/16/2016 CURT ARAGON MD Ot I10 ESSENTIAL (PRIMARY) HYPERTENSION 09/16/2016 CURT ARAGON MD Ot I25.10 ATHSCL HEART DISEASE OF [place] CORONARY 09/16/2016 CARTER BADILLO MD Ot M25.511 PAIN IN RIGHT SHOULDER 09/16/2016 CARTER BADILLO MD Ot M54.2 CERVICALGIA 09/16/2016 LUCIANO SALOMON Ot E04.1 NONTOXIC SINGLE THYROID NODULE 09/16/2016 MINO GARCIA MD Ot R13.10 DYSPHAGIA, UNSPECIFIED 09/16/2016 MINO GARCIA MD Ot Z01.818 ENCOUNTER FOR OTHER PREPROCEDURAL EXAMIN 09/16/2016 BERTHA DHALIWAL MD Ot Z51.81 ENCOUNTER FOR THERAPEUTIC DRUG LEVEL MON 09/16/2016 BERTHA DHALIWAL MD Ot Z79.899 OTHER BRAKE LINING MAKER (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 THERAPY 09/16/2016 NOEL ZARAGOZA APRN Ot M54.9 DORSALGIA, UNSPECIFIED 09/16/2016 NOEL ZARAGOZA TRIPLE DRUM OPERATOR Ot R07.9 CHEST PAIN, UNSPECIFIED 09/16/2016 NOEL ZARAGOZA TRIPLE DRUM OPERATOR Ot R61 GENERALIZED HYPERHIDROSIS 09/16/2016 NOEL ZARAGOZA APRN Ot Z12.31 ENCNTR SCREEN MAMMOGRAM FOR MALIGNANT NE 09/16/2016 STAN LEAVITT, SNOW Frias Ot 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 09/16/2016 KYLE YANG Ot 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, 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 09/16/2016 CARTER BADILLO MD Ot E04.2 NONTOXIC MULTINODULAR GOITER 09/16/2016 CARTER BADILLO MD Ot I25.10 ATHSCL HEART DISEASE OF [place] CORONARY 09/16/2016 CARTER BADILLO MD Ot I51.7 [...] 09/19/2016 BERTHA DHALIWAL MD Ot Z79.899 OTHER [facility] (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 THERAPY 10/10/2016 BERTHA DHALIWAL MD, Ot J44.9 CHRONIC OBSTRUCTIVE PULMONARY DISEASE, U 10/10/2016 BERTHA DHALIWAL MD Ot K44.9 DIAPHRAGMATIC HERNIA WITHOUT OBSTRUCTION 10/10/2016 BERTHA DHALIWAL MD Ot Z51.81 ENCOUNTER FOR THERAPEUTIC DRUG LEVEL MON 10/10/2016 BERTHA DHALIWAL MD Ot Z79.899 OTHER [employer] (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 THERAPY 10/28/2016 ANJELICA HUBBARD MD Ot L92.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, 10/28/2016 ANJELICA [...] (SURGIC 12/08/2016 ANJELICA HUBBARD MD, Ot L92.8 OTMana GRANULOMATOUS DISORDERS OF THE SKIN, 12/08/2016 ANJELICA HUBBARD MD Ot 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 12/08/2016 ANJELICA HUBBARD MD Ot T81.31XA DISRUPTION OF EXTERNAL OPERATION (SURGIC 12/23/2016 Ot 780.4 DIZZINESS AND GIDDINESS 12/23/2016 Ot 786.09 RESPIRATORY ABNORM NEC 12/23/2016 Ot 786.50 CHEST PAIN NOS 12/23/2016 Ot V72.84 EXAM PRE-OPERATIVE NOS 12/23/2016 Ot V76.12 OTH SCREEN MAMMO- MALIGN NEOPLASM OF PERRY 12/23/2016 Ot 793.80 UNSPEC ABNORMAL MAMMOGRAM 12/23/2016 Ot V72.84 EXAM PRE-OPERATIVE NOS 12/23/2016 [place], ARUNA Vale Ot 611.71 MASTODYNIA 12/23/2016 [place], CURT [place] Ot 401.9 HYPERTENSION NOS 12/23/2016 [place], CURT [place] Ot 414.00 CORON ATHEROSCLER NOS TYPE VESSEL, NATIV 12/23/2016 [place], CURT [place] Ot 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 OCCLUSION NOS W CEREBRAL IN 12/23/2016 JENELLE NATION, PJ Wells Ot 553.3 DIAPHRAGMATIC HERNIA 12/23/2016 [place] NATION, PJ Wells Ot 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, ACQUIRED 12/23/2016 [place] NATION, PJ Wells Ot 789.00 ABDOMINAL PAIN, UNSPECIFIED SITE 12/23/2016 [...] CHEST PAIN NOS 12/23/2016 [place], BERTHA P Ot 427.31 ATRIAL FIBRILLATION 12/23/2016 SALOMON, LUCIANO M ASSISTANT SPA DIRECTOR Ot 244.9 HYPOTHYROIDISM NOS 12/23/2016 LUCIANO SALOMON ASSISTANT SPA DIRECTOR Ot 787.20 DYSPHAGIA, UNSPECIFIED 12/23/2016 LUCIANO SALOMON ASSISTANT SPA DIRECTOR Ot V76.12 OTH SCREEN MAMMO-MALIGN NEOPLASM OF PERRY 12/23/2016 KYLE YANG Ot E78.2 MIXED HYPERLIPIDEMIA 12/23/2016 KYLE YANG Ot I10 ESSENTIAL (PRIMARY) HYPERTENSION 12/23/2016 KYLE YANG Ot I25.10 ATHSCL HEART DISEASE OF [place] CORONARY 12/23/2016 KYLE YANG Ot I65.23 OCCLUSION AND STENOSIS OF BILATERAL [place] 12/23/2016 CURT ARAGON MD Ot E78.2 MIXED HYPERLIPIDEMIA 12/23/2016 CURT ARAGON MD, Ot I10 ESSENTIAL (PRIMARY) HYPERTENSION 12/23/2016 CURT ARAGON MD Ot I25.10 ATHSCL HEART DISEASE OF [place] CORONARY 12/23/2016 CARTER BADILLO MD Ot M25.511 PAIN IN RIGHT SHOULDER 12/23/2016 CARTER BADILLO MD Ot M54.2 CERVICALGIA 12/23/2016 LUCIANO SALOMON ASSISTANT SPA DIRECTOR Ot E04.1 NONTOXIC SINGLE THYROID NODULE 12/23/2016 MINO GARCIA MD Ot R13.10 DYSPHAGIA, UNSPECIFIED 12/23/2016 MINO GARCIA MD Ot Z01.818 ENCOUNTER FOR OTHER PREPROCEDURAL EXAMIN 12/23/2016 BERTHA DHALIWAL MD Ot Z51.81 ENCOUNTER FOR THERAPEUTIC DRUG LEVEL MON 12/23/2016 BERTHA DHALIWAL MD Ot Z79.899 OTHER [facility] (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 THERAPY 12/23/2016 NOEL ZARAGOZA APRN Ot M54.9 DORSALGIA, UNSPECIFIED 12/23/2016 ONEL ZARAGOZA APRN Ot R07.9 CHEST PAIN, UNSPECIFIED 12/23/2016 NOEL ZARAGOZA APRN Ot R61 GENERALIZED HYPERHIDROSIS 12/23/2016 NOEL ZARAGOZA APRN Ot Z12.31 ENCNTR SCREEN MAMMOGRAM FOR MALIGNANT NE 12/23/2016 STAN TUCKERM, SNOW Frias Ot 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 12/23/2016 JACQUES QUINTANILLA, KYLE Hurst Ot 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, 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 12/23/2016 [place], CARTER Saldivar Ot E04.2 NONTOXIC MULTINODULAR GOITER 12/23/2016 [place], CARTER Saldivar Ot I25.10 ATHSCL HEART DISEASE OF [place] CORONARY 12/23/2016 CARTER BADILLO MD Ot I51.7 CARDIOMEGALY 12/23/2016 CARTER BADILLO MD Ot 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, 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 12/23/2016 [place], CARTER Saldivar Ot K44.9 DIAPHRAGMATIC HERNIA WITHOUT OBSTRUCTION 12/23/2016 [place], BERTHA Daniels Ot J44.9 CHRONIC OBSTRUCTIVE PULMONARY DISEASE, U 12/23/2016 [place], BERTHA Daniels Ot K44.9 DIAPHRAGMATIC HERNIA WITHOUT OBSTRUCTION 12/23/2016 [place], BERTHA Daniels Ot Z51.81 ENCOUNTER FOR THERAPEUTIC DRUG LEVEL [facility] 12/23/2016 [place], BERTHA Daniels Ot Z79.899 OTHER [employer] MAKER (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 THERAPY 12/29/2016 MELY METCALF DO [...] F03.90 UNSPECIFIED DEMENTIA WITHOUT BEHAVIORAL 01/11/2017 TEA DICK MELY Vale Ot F41.9 ANXIETY DISORDER, UNSPECIFIED 01/11/2017 MELY METCALF DO Ot E66.9 OBESITY, UNSPECIFIED 01/11/2017 MELY METCALF DO Ot F03.90 UNSPECIFIED DEMENTIA WITHOUT BEHAVIORAL 01/11/2017 TEA DICK MELY Vale Ot F41.9 ANXIETY DISORDER, UNSPECIFIED 01/18/2017 MELY METCALF DO Ot E66.9 OBESITY, UNSPECIFIED 01/18/2017 MELY METCALF DO Ot F03.90 UNSPECIFIED DEMENTIA WITHOUT BEHAVIORAL 01/18/2017 MELY METCALF DO Ot F41.9 ANXIETY DISORDER, UNSPECIFIED 03/02/2017 NOEL ZARAGOZA TRIPLE DRUM OPERATOR Ot Z12.31 ENCNTR SCREEN MAMMOGRAM FOR MALIGNANT NE 03/08/2017 NOEL ZARAGOZA TRIPLE DRUM OPERATOR Ot Z12.31 ENCNTR SCREEN MAMMOGRAM FOR MALIGNANT NE 03/15/2017 NOEL ZARAGOZA TRIPLE DRUM OPERATOR Ot Z12.31 ENCNTR SCREEN MAMMOGRAM FOR MALIGNANT NE 03/30/2017 NOEL ZARAGOZA TRIPLE DRUM OPERATOR Ot Z12.31 ENCNTR SCREEN MAMMOGRAM FOR MALIGNANT NE 04/17/2017 NOEL ZARAGOZA TRIPLE DRUM OPERATOR Ot Z12.31 ENCNTR SCREEN MAMMOGRAM FOR MALIGNANT NE 04/27/2017 Ot V76.12 OTH SCREEN MAMMO- MALIGN NEOPLASM OF PERRY 04/27/2017 Ot 793.80 UNSPEC ABNORMAL MAMMOGRAM 04/27/2017 Ot V72.84 EXAM PRE-OPERATIVE NOS 04/27/2017 [place], ARUNA Vale Ot 611.71 MASTODYNIA 04/27/2017 [place], CURT Montes De Oca Ot 401.9 HYPERTENSION NOS 04/27/2017 CURT ARAGON MD Ot 414.00 CORON ATHEROSCLER NOS TYPE VESSEL, NATIV 04/27/2017 CURT ARAGON MD Ot 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 OCCLUSION NOS W CEREBRAL IN 04/27/2017 [place] NATION, PJ I Ot 553.3 DIAPHRAGMATIC HERNIA 04/27/2017 [place], PJ Wells Ot 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, ACQUIRED 04/27/2017 [place], PJ Wells Ot 789.00 ABDOMINAL PAIN, UNSPECIFIED SITE 04/27/2017 [place], ARUNA Vale Ot V76.12 OTH SCREEN MAMMO-MALIGN NEOPLASM OF PERRY 04/27/2017 KYLE YANG Ot 272.4 HYPERLIPIDEMIA NEC/NOS 04/27/2017 KYLE YANG K Ot 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 04/27/2017 KYLE YANG Ot 397.0 TRICUSPID VALVE DISEASE 04/27/2017 KYLE YANG Ot 401.9 HYPERTENSION NOS 04/27/2017 KYLE YANG K Ot 414.00 CORON ATHEROSCLER NOS TYPE VESSEL, NATIV 04/27/2017 KYLE YANG K Ot 429.3 CARDIOMEGALY 04/27/2017 AURA YANGTH K Ot 786.50 CHEST PAIN NOS 04/27/2017 KYLE YANG Ot 272.4 HYPERLIPIDEMIA NEC/NOS 04/27/2017 AURA YANGTH K Ot 401.9 HYPERTENSION NOS 04/27/2017 KYLE YANG K Ot 414.00 CORON ATHEROSCLER NOS TYPE VESSEL, NATIV 04/27/2017 KYLE YANG K Ot 786.50 CHEST PAIN NOS 04/27/2017 [place], BERTHA Daniels Ot 427.31 ATRIAL FIBRILLATION 04/27/2017 LUCIANO SALOMON ASSISTANT SPA DIRECTOR Ot 244.9 HYPOTHYROIDISM NOS 04/27/2017 LUCIANO SALOMON ASSISTANT SPA DIRECTOR Ot 787.20 DYSPHAGIA, UNSPECIFIED 04/27/2017 LUCIANO SALOMON Ot V76.12 OTH SCREEN MAMMO-MALIGN NEOPLASM OF [place]ERR[place] 04/27/2017 KYLE YANG Ot E78.2 MIXED HYPERLIPIDEMIA 04/27/2017 KYLE YANG K Ot I10 ESSENTIAL (PRIMARY) HYPERTENSION 04/27/2017 KYLE YANG Ot I25.10 ATHSCL HEART DISEASE OF [place] CORONARY 04/27/2017 KYLE YANG Ot I65.23 OCCLUSION AND STENOSIS OF BILATERAL [place] 04/27/2017 CURT ARAGON MD Ot E78.2 MIXED HYPERLIPIDEMIA 04/27/2017 CURT ARAGON MD Ot I10 ESSENTIAL (PRIMARY) HYPERTENSION 04/27/2017 CURT ARAGON MD Ot I25.10 ATHSCL HEART DISEASE OF [place] CORONARY 04/27/2017 CARTER BADILLO MD Ot M25.511 PAIN IN RIGHT SHOULDER 04/27/2017 CARTER BADILLO MD Ot M54.2 CERVICALGIA 04/27/2017 LUCIANO SALOMON Ot E04.1 NONTOXIC SINGLE THYROID NODULE 04/27/2017 MINO GARCIA MD Ot R13.10 DYSPHAGIA, UNSPECIFIED 04/27/2017 [place], MINO Ot Z01.818 ENCOUNTER FOR OTHER PREPROCEDURAL EXAMIN 04/27/2017 BERTHA DHALIWAL MD Ot Z51.81 ENCOUNTER FOR THERAPEUTIC DRUG LEVEL MON 04/27/2017 BERTHA DHALIWAL MD Ot Z79.899 OTHER BRAKE LINING MAKER (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 THERAPY 04/27/2017 NOEL ZARAGOZA APRN Ot M54.9 DORSALGIA, UNSPECIFIED 04/27/2017 NOEL ZARAGOZA APRN Ot R07.9 CHEST PAIN, UNSPECIFIED 04/27/2017 NOEL [...] MD Ot I25.10 ATHSCL HEART DISEASE OF [place] CORONARY 04/27/2017 CARTER BADILLO MD Ot I51.7 CARDIOMEGALY 04/27/2017 ABY MD, CARTER A Ot 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, 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 04/27/2017 [place], CARTER A Ot K44.9 DIAPHRAGMATIC HERNIA WITHOUT OBSTRUCTION 04/27/2017 BERTHA DHALIWAL MD Ot J44.9 CHRONIC OBSTRUCTIVE PULMONARY DISEASE, U 04/27/2017 BERTHA DHALIWAL MD Ot K44.9 DIAPHRAGMATIC HERNIA WITHOUT OBSTRUCTION 04/27/2017 BERTHA DHALIWAL MD Ot Z51.81 ENCOUNTER FOR THERAPEUTIC DRUG LEVEL MON 04/27/2017 BERTHA DHALIWAL MD Ot Z79.899 OTHER [facility] (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 THERAPY 04/27/2017 MELY METCALF DO [...] 04/28/2017 BERTHA DHALIWAL MD Ot Z79.899 OTHER BRAKE LINING MAKER (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 THERAPY 05/22/2017 BERTHA DHALIWAL MD Ot I51.7 CARDIOMEGALY 05/22/2017 BERTHA DHALIWAL MD Ot K44.9 DIAPHRAGMATIC HERNIA WITHOUT OBSTRUCTION 05/22/2017 BERTHA DHALIWAL MD Ot Z79.899 OTHER M[facility] (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 THERAPY 06/07/2017 BERTHA DHALIWAL MD Ot I51.7 CARDIOMEGALY 06/07/2017 BERTHA DHALIWAL MD Ot K44.9 DIAPHRAGMATIC HERNIA WITHOUT OBSTRUCTION 06/07/2017 BERTHA DHALIWAL MD Ot Z79.899 OTHER BRAKE LINING MAKER (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 THERAPY 06/22/2017 Ot 793.80 UNSPEC ABNORMAL MAMMOGRAM 06/22/2017 Ot V72.84 EXAM PRE-OPERATIVE NOS 06/22/2017 [place], ARUNA Vale Ot 611.71 MASTODYNIA 06/22/2017 [place], CURT Montes De Oca Ot 401.9 HYPERTENSION NOS 06/22/2017 CURT ARAGON MD Ot 414.00 CORON ATHEROSCLER NOS TYPE VESSEL, NATIV 06/22/2017 [place], CURT Montes De Oca Ot 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 OCCLUSION NOS W CEREBRAL IN 06/22/2017 [place], PJ Wells Ot 553.3 DIAPHRAGMATIC HERNIA 06/22/2017 [place], PJ Wells Ot 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, ACQUIRED 06/22/2017 [place], PJ Wells Ot 789.00 ABDOMINAL PAIN, UNSPECIFIED SITE 06/22/2017 [place], ARUNA Vale Ot V76.12 OTH SCREEN MAMMO-MALIGN NEOPLASM OF PERRY 06/22/2017 JACQUES QUINTANILLA KYLE K Ot 272.4 HYPERLIPIDEMIA NEC/NOS 06/22/2017 JACQUES QUINTANILLA KYLE K Ot 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 06/22/2017 KYLE YANG K Ot 397.0 TRICUSPID VALVE DISEASE 06/22/2017 AURA YANGTH K Ot 401.9 HYPERTENSION NOS 06/22/2017 JACQUES QUINTANILLA KYLE K Ot 414.00 CORON ATHEROSCLER NOS TYPE VESSEL, NATIV 06/22/2017 JACQUES QUINTANILLA KYLE K Ot 429.3 CARDIOMEGALY 06/22/2017 JACQUES QUINTANILLA KYLE K Ot 786.50 CHEST PAIN NOS 06/22/2017 AURA YANGTH K Ot 272.4 HYPERLIPIDEMIA NEC/NOS 06/22/2017 AURA YANGTH K Ot 401.9 HYPERTENSION NOS 06/22/2017 JACQUES QUINTANILLA KYLE K Ot 414.00 CORON ATHEROSCLER NOS TYPE VESSEL, NATIV 06/22/2017 AURA YANGTH K Ot 786.50 CHEST PAIN NOS 06/22/2017 [place], BERTHA Daniels Ot 427.31 ATRIAL FIBRILLATION 06/22/2017 LUCIANO SALOMON ASSISTANT SPA DIRECTOR Ot 244.9 HYPOTHYROIDISM NOS 06/22/2017 LUCIANO SALOMON ASSISTANT SPA DIRECTOR Ot 787.20 DYSPHAGIA, UNSPECIFIED 06/22/2017 LUCIANO SALOMONP Ot V76.12 OTH SCREEN MAMMO-MALIGN NEOPLASM OF [place] 06/22/2017 KYLE YANG K Ot E78.2 MIXED HYPERLIPIDEMIA 06/22/2017 JACQUES QUINTANILLA KYLE K Ot I10 ESSENTIAL (PRIMARY) HYPERTENSION 06/22/2017 KYLE YANG Ot I25.10 ATHSCL HEART DISEASE OF [place] CORONARY 06/22/2017 KYLE YANG Ot I65.23 OCCLUSION AND STENOSIS OF BILATERAL [place] 06/22/2017 CURT ARAGON MD Ot E78.2 MIXED HYPERLIPIDEMIA 06/22/2017 CURT ARAGON MD Ot I10 ESSENTIAL (PRIMARY) HYPERTENSION 06/22/2017 CURT ARAGON MD Ot I25.10 ATHSCL HEART DISEASE OF [place] CORONARY 06/22/2017 CARTER BADILLO MD Ot M25.511 PAIN IN RIGHT SHOULDER 06/22/2017 CARTER BADILLO MD Ot M54.2 CERVICALGIA 06/22/2017 LUCIANO SALOMON Ot E04.1 NONTOXIC SINGLE THYROID NODULE 06/22/2017 [place], MINO Ot R13.10 DYSPHAGIA, UNSPECIFIED 06/22/2017 [place], MINO Ot Z01.818 ENCOUNTER FOR OTHER PREPROCEDURAL EXAMIN 06/22/2017 BERTHA DHALIWAL MD Ot Z51.81 ENCOUNTER FOR THERAPEUTIC DRUG LEVEL MON 06/22/2017 BERTHA DHALIWAL MD Ot Z79.899 OTHER BRAKE LINING MAKER (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 THERAPY 06/22/2017 NOEL ZARAGOZA APRN Ot M54.9 DORSALGIA, UNSPECIFIED 06/22/2017 NOEL ZARAGOZA TRIPLE DRUM OPERATOR Ot R07.9 CHEST PAIN, UNSPECIFIED 06/22/2017 NOEL ZARAGOZA TRIPLE DRUM OPERATOR Ot R61 GENERALIZED HYPERHIDROSIS 06/22/2017 NOEL ZARAGOZA APRN Ot Z12.31 ENCNTR SCREEN MAMMOGRAM FOR MALIGNANT NE 06/22/2017 STAN LEAVITT, SNOW Frias Ot 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 06/22/2017 KYLE YANG Ot 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, 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 06/22/2017 CARTER BADILLO MD Ot E04.2 NONTOXIC MULTINODULAR GOITER 06/22/2017 CARTER BADILLO MD Ot I25.10 ATHSCL HEART DISEASE OF [place] CORONARY 06/22/2017 CARTER BADILLO MD Ot I51.7 CARDIOMEGALY 06/22/2017 ABY MD, CARTER A Ot 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, 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 06/22/2017 CARTER BADILLO MD Ot K44.9 DIAPHRAGMATIC HERNIA WITHOUT OBSTRUCTION 06/22/2017 BERTHA DHALIWAL MD Ot J44.9 CHRONIC OBSTRUCTIVE PULMONARY DISEASE, U 06/22/2017 BERTHA DHALIWAL MD Ot K44.9 DIAPHRAGMATIC HERNIA WITHOUT OBSTRUCTION 06/22/2017 BERTHA DHALIWAL MD Ot Z51.81 ENCOUNTER FOR THERAPEUTIC DRUG LEVEL MON 06/22/2017 BERTHA DHALIWAL MD Ot Z79.899 OTHER MCC (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 THERAPY 06/22/2017 MELY METCALF DO [...] 06/22/2017 BERTHA DHALIWAL MD Ot Z79.899 OTHER MCC (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 THERAPY 06/22/2017 CARTER BADILLO MD [...] UPPER RESPIRATORY INFECTION, UNSPE 06/23/2017 CARTER BADILLO MD Ot J30.2 OTHER SEASONAL ALLERGIC RHINITIS 06/23/2017 CARTER BADILLO MD Ot K21.9 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 06/23/2017 CARTER BADILLO MD Ot K44.9 DIAPHRAGMATIC HERNIA WITHOUT OBSTRUCTION 06/23/2017 CARTER BADILLO MD Ot M19.91 PRIMARY OSTEOARTHRITIS, UNSPECIFIED SITE 06/23/2017 CARTER BADILLO MD Ot R09.02 HYPOXEMIA 06/23/2017 CARTER BADILLO MD Ot Z66 DO NOT RESUSCITATE 06/23/2017 CARTER BADILLO MD Ot Z79.01 BRAKE LINING MAKER (CURRENT) USE OF ANTICOAGULANT 06/23/2017 CARTER BADILLO [...] Ot F03.90 UNSPECIFIED DEMENTIA WITHOUT BEHAVIORAL 06/24/2017 ABY MD, CARTER A Ot F32.9 MAJOR [...] OTHER SEASONAL ALLERGIC RHINITIS 06/24/2017 CARTER BADILLO MD Ot K21.9 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 06/24/2017 CARTER BADILLO MD Ot K44.9 DIAPHRAGMATIC HERNIA WITHOUT OBSTRUCTION 06/24/2017 CARTER BADILLO MD Ot M19.91 PRIMARY OSTEOARTHRITIS, UNSPECIFIED SITE 06/24/2017 CARTER BADILLO MD Ot R09.02 HYPOXEMIA 06/24/2017 CARTER BADILLO MD Ot Z66 DO NOT RESUSCITATE 06/24/2017 CARTER BADILLO MD Ot Z79.01 BRAKE LINING MAKER (CURRENT) USE OF ANTICOAGULANT 06/24/2017 CARTER BADILLO MD Ot Z87.19 PERSONAL HISTORY OF OTHER DISEASES OF TH 06/24/2017 CARTRE BADILLO MD Ot Z87.442 PERSONAL HISTORY OF [...] F03.90 UNSPECIFIED DEMENTIA WITHOUT BEHAVIORAL 06/25/2017 [place], CARTER Saldivar Ot F32.9 MAJOR DEPRESSIVE DISORDER, SINGLE EPISOD [...] J30.2 OTHER SEASONAL ALLERGIC RHINITIS 06/25/2017 CARTER BADLILO MD Ot K21.9 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 06/25/2017 CARTER BADILLO MD Ot K44.9 DIAPHRAGMATIC HERNIA WITHOUT OBSTRUCTION 06/25/2017 CARTER BADILLO MD Ot M19.91 PRIMARY OSTEOARTHRITIS, UNSPECIFIED SITE 06/25/2017 CARTER BADILLO MD Ot R09.02 HYPOXEMIA 06/25/2017 CARTER BADILLO MD Ot Z66 DO NOT RESUSCITATE 06/25/2017 CARTER BADILLO MD Ot Z79.01 MCC (CURRENT) USE OF ANTICOAGULANT 06/25/2017 CARTER BADILLO MD Ot Z87.19 PERSONAL HISTORY OF OTHER DISEASES OF TH 06/25/2017 CARTER BADILLO MD, Ot Z87.442 PERSONAL HISTORY [...] I50.9 HEART FAILURE, UNSPECIFIED 06/25/2017 CARTER BADILLO MD, Ot J06.9 ACUTE UPPER RESPIRATORY INFECTION, UNSPE 06/25/2017 CARTER BADILLO MD, Ot J30.2 OTHER SEASONAL ALLERGIC RHINITIS 06/25/2017 CARTER BADILLO MD, Ot K21.9 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 06/25/2017 CARTER BADILLO MD, Ot K44.9 DIAPHRAGMATIC HERNIA WITHOUT OBSTRUCTION 06/25/2017 CARTER BADILLO MD Ot M19.91 PRIMARY OSTEOARTHRITIS, UNSPECIFIED SITE 06/25/2017 CARTER BADILLO MD Ot R09.02 HYPOXEMIA 06/25/2017 CARTER BADILLO MD Ot Z66 DO NOT RESUSCITATE 06/25/2017 CARTER BADILLO MD Ot Z79.01 BRAKE LINING MAKER (CURRENT) USE OF ANTICOAGULANT 06/25/2017 CARTER BADILLO [...] MD Ot R09.02 HYPOXEMIA 06/26/2017 CARTER BADILLO MD, Ot Z66 DO NOT RESUSCITATE 06/26/2017 CARTER BADILLO MD Ot Z79.01 BRAKE LINING MAKER (CURRENT) USE OF ANTICOAGULANT 06/26/2017 CARTER BADILLO [...] RESUSCITATE 06/27/2017 CARTER BADILLO MD Ot Z79.01 MCC (CURRENT) USE OF ANTICOAGULANT 06/27/2017 CARTER BADILLO [...] RESUSCITATE 06/27/2017 CARTER BADILLO MD Ot Z79.01 MCC (CURRENT) USE OF ANTICOAGULANT 06/27/2017 CARTER BADILLO MD Ot Z87.19 PERSONAL HISTORY OF OTHER DISEASES OF TH 06/27/2017 CARTER BADILLO MD Ot Z87.442 PERSONAL HISTORY OF URINARY CALCULI 06/27/2017 CARTER BADILLO MD Ot Z95.0 PRESENCE OF CARDIAC PACEMAKER 06/27/2017 CARTER BADILLO MD, Ot Z99.81 DEPENDENCE ON SUPPLEMENTAL OXYGEN 09/17/2017 AIDA DUEÑAS MD, Ot E03.9 HYPOTHYROIDISM, UNSPECIFIED 09/17/2017 AIDA DUEÑAS MD Ot E78.00 PURE HYPERCHOLESTEROLEMIA, UNSPECIFIED 09/17/2017 AIDA [...] Ot R09.81 NASAL CONGESTION 09/17/2017 AIDA DUEÑAS MD Ot Z82.49 FAMILY HX OF ISCHEM HEART DIS AND OTH DI 09/17/2017 AIDA DUEÑAS MD, Ot Z87.01 PERSONAL HISTORY OF PNEUMONIA (RECURRENT 09/17/2017 AIDA DUEÑAS MD, Ot Z87.442 PERSONAL HISTORY OF URINARY CALCULI 09/17/2017 AIDA DUEÑAS MD Ot Z88.0 ALLERGY STATUS TO PENICILLIN 09/17/2017 AIDA DUEÑAS MD, Ot Z88.6 ALLERGY STATUS TO ANALGESIC AGENT STATUS 09/17/2017 AIDA DUEÑAS MD Ot Z90.710 ACQUIRED ABSENCE OF BOTH CERVIX AND UTER 09/17/2017 BRUEGGEMANN MD, AIDA T Ot Z95.0 PRESENCE OF CARDIAC PACEMAKER 09/20/2017 AIDA DUEÑAS MD Ot E03.9 HYPOTHYROIDISM, UNSPECIFIED 09/20/2017 AIDA DUEÑAS MD Ot E78.00 PURE HYPERCHOLESTEROLEMIA, UNSPECIFIED 09/20/2017 AIDA DUEÑAS MD Ot F03.90 UNSPECIFIED DEMENTIA WITHOUT BEHAVIORAL 09/20/2017 AIDA DUEÑAS MD Ot F32.9 MAJOR DEPRESSIVE DISORDER, SINGLE EPISOD 09/20/2017 AIDA DUEÑAS MD, Ot F41.9 ANXIETY DISORDER, UNSPECIFIED 09/20/2017 AIDA [...] DIS AND OTH DI 09/20/2017 AIDA DUEÑAS MD Ot Z87.01 PERSONAL HISTORY OF PNEUMONIA (RECURRENT 09/20/2017 AIDA DUEÑAS MD Ot Z87.442 PERSONAL HISTORY OF URINARY CALCULI 09/20/2017 AIDA DUEÑAS MD Ot Z88.0 ALLERGY STATUS TO PENICILLIN 09/20/2017 AIDA DUEÑAS MD Ot Z88.6 ALLERGY STATUS TO ANALGESIC AGENT STATUS 09/20/2017 AIDA DUEÑAS MD Ot Z90.710 ACQUIRED ABSENCE OF BOTH CERVIX AND UTER 09/20/2017 AIDA DUEAÑS MD Ot Z95.0 PRESENCE OF CARDIAC PACEMAKER 10/27/2017 LACY CALDERÓN MD, Ot E03.9 HYPOTHYROIDISM, UNSPECIFIED 10/27/2017 LACY CALDERÓN MD Ot E78.00 PURE HYPERCHOLESTEROLEMIA, UNSPECIFIED 10/27/2017 [place], LACY Barnard Ot F03.90 UNSPECIFIED DEMENTIA WITHOUT BEHAVIORAL 10/27/2017 [place], LACY Barnard Ot F32.9 MAJOR DEPRESSIVE DISORDER, SINGLE EPISOD 10/27/2017 [place], LACY Evon Ot F41.9 ANXIETY DISORDER, UNSPECIFIED 10/27/2017 [place], LACY Barnard Ot I11.0 HYPERTENSIVE HEART DISEASE WITH HEART FA 10/27/2017 [place], LACY Barnard Ot I48.91 UNSPECIFIED ATRIAL FIBRILLATION 10/27/2017 [place], LACY Barnard Ot I50.9 HEART FAILURE, UNSPECIFIED 10/27/2017 [place], LACY Barnard Ot K21.9 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 10/27/2017 [place], LACY Evon Ot R07.89 OTHER CHEST PAIN 10/27/2017 [place], LACY Barnard Ot Z79.51 MCC (CURRENT) USE OF INHALED STERO 10/27/2017 [place], LACY Barnard Ot Z87.01 PERSONAL HISTORY OF PNEUMONIA (RECURRENT 10/27/2017 [place], LACY Evon Ot Z87.19 PERSONAL HISTORY OF OTHER DISEASES OF TH 10/27/2017 [place], LACY Evon Ot Z87.442 PERSONAL HISTORY OF URINARY CALCULI 10/27/2017 [place], LACY Barnard Ot Z88.0 ALLERGY STATUS TO PENICILLIN 10/27/2017 [place], LACY Barnard Ot Z88.5 ALLERGY STATUS TO NARCOTIC AGENT STATUS 10/27/2017 [place], LACY Barnard Ot Z90.710 ACQUIRED ABSENCE OF BOTH CERVIX AND UTER 10/27/2017 [place], LACY Evon Ot Z95.0 PRESENCE OF CARDIAC PACEMAKER 10/30/2017 [...] 10/30/2017 [place], LACY Barnard Ot Z79.51 MCC (CURRENT) USE OF INHALED STERO 10/30/2017 KAITLYNN [...] NARCOTIC AGENT STATUS 10/30/2017 [place], LACY Barnard Ot Z90.710 ACQUIRED ABSENCE OF BOTH CERVIX AND UTER 10/30/2017 [place], LACY Barnard Ot Z95.0 PRESENCE OF CARDIAC PACEMAKER 11/03/2017 [place], LACY Barnard Ot E03.9 HYPOTHYROIDISM, UNSPECIFIED 11/03/2017 [place], LACY Barnard Ot E78.00 PURE HYPERCHOLESTEROLEMIA, UNSPECIFIED 11/03/2017 [place], LACY Barnard Ot F03.90 UNSPECIFIED DEMENTIA WITHOUT BEHAVIORAL 11/03/2017 [...] PAIN 11/03/2017 LACY CALDERÓN MD Ot Z79.51 BRAKE LINING MAKER (CURRENT) USE OF INHALED STERO 11/03/2017 LACY [...] MAJOR DEPRESSIVE DISORDER, SINGLE EPISOD 12/06/2017 CL ROSALES APRN Ot F41.9 ANXIETY DISORDER, UNSPECIFIED 12/06/2017 CL ROSALES APRN Ot I10 ESSENTIAL (PRIMARY) HYPERTENSION 12/06/2017 CL ROSALES APRN Ot I48.91 UNSPECIFIED ATRIAL FIBRILLATION 12/06/2017 CL ROSALES APRN Ot J44.1 CHRONIC OBSTRUCTIVE PULMONARY DISEASE W 12/06/2017 CL ROSALES APRN Ot K21.9 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 12/06/2017 CL ROSALES APRN Ot R53.1 WEAKNESS 12/06/2017 CL ROSALES APRN Ot Z79.51 MCC (CURRENT) USE OF INHALED STERO 12/06/2017 CL [...] WEAKNESS 12/08/2017 CL ROSALES APRN Ot Z79.51 BRAKE LINING MAKER (CURRENT) USE OF INHALED STERO 12/08/2017 CL [...] WEAKNESS 12/08/2017 CL ROSALES APRN Ot Z79.51 BRAKE LINING MAKER (CURRENT) USE OF INHALED STERO 12/08/2017 CL ROSALES APRN Ot Z82.49 FAMILY HX OF ISCHEM HEART DIS AND OTH DI 12/08/2017 CL ROSALES APRN Ot Z87.01 PERSONAL HISTORY OF PNEUMONIA (RECURRENT 12/08/2017 CL ROSALES APRN Ot Z87.442 PERSONAL HISTORY OF URINARY CALCULI 12/08/2017 LC ROSALES APRN Ot Z88.0 ALLERGY STATUS TO PENICILLIN 12/08/2017 CL ROSALES APRN Ot Z88.5 ALLERGY STATUS TO NARCOTIC AGENT STATUS 12/08/2017 CL ROSALES APRN Ot Z88.6 ALLERGY STATUS TO ANALGESIC AGENT STATUS 12/08/2017 CL ROSALES APRN Ot Z90.710 ACQUIRED ABSENCE OF BOTH CERVIX AND UTER 12/08/2017 CL ROSALES APRN Ot Z95.0 PRESENCE OF CARDIAC PACEMAKER 02/16/2018 [place], AIDA Ibarra Ot E03.9 HYPOTHYROIDISM, UNSPECIFIED 02/16/2018 AIDA DUEÑAS MD Ot E78.00 PURE HYPERCHOLESTEROLEMIA, UNSPECIFIED 02/16/2018 AIDA DUEÑAS MD Ot F03.90 UNSPECIFIED DEMENTIA WITHOUT BEHAVIORAL 02/16/2018 AIDA DUEÑAS MD, Ot F32.9 MAJOR DEPRESSIVE DISORDER, SINGLE EPISOD 02/16/2018 AIDA DUEÑAS MD Ot F41.9 ANXIETY DISORDER, UNSPECIFIED 02/16/2018 AIDA DUEÑAS MD Ot I11.0 HYPERTENSIVE HEART DISEASE WITH HEART FA 02/16/2018 AIDA DUEÑAS MD Ot I48.91 UNSPECIFIED ATRIAL FIBRILLATION 02/16/2018 AIDA DUEÑAS MD, Ot I50.9 HEART FAILURE, UNSPECIFIED 02/16/2018 AIDA DUEÑAS MD, Ot J44.9 CHRONIC OBSTRUCTIVE PULMONARY DISEASE, U 02/16/2018 AIDA DUEÑAS MD, Ot K21.9 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 02/16/2018 AIDA DUEÑAS MD Ot M79.621 PAIN IN RIGHT UPPER ARM 02/16/2018 AIDA DUEÑAS MD Ot M79.89 OTHER SPECIFIED SOFT TISSUE DISORDERS 02/16/2018 AIDA DUEÑAS MD, Ot S40.021A CONTUSION OF RIGHT UPPER ARM, INITIAL EN 02/16/2018 AIDA DUEÑAS MD Ot X58.XXXA EXPOSURE TO OTHER SPECIFIED FACTORS, INI 02/16/2018 AIDA DUEÑAS MD, Ot Z79.51 MCC (CURRENT) USE OF INHALED STERO 02/16/2018 AIDA DUEÑAS MD Ot Z82.49 FAMILY HX OF ISCHEM HEART DIS AND OTH DI 02/16/2018 AIDA DUEÑAS MD, Ot Z87.01 PERSONAL HISTORY OF PNEUMONIA (RECURRENT 02/16/2018 AIDA DUEÑAS MD, Ot Z87.19 PERSONAL HISTORY OF OTHER DISEASES OF TH 02/16/2018 AIDA DUEÑAS MD, Ot Z87.442 PERSONAL HISTORY OF URINARY CALCULI 02/16/2018 AIDA DUEÑAS MD, Ot Z88.0 ALLERGY STATUS TO PENICILLIN 02/16/2018 AIDA DUEÑAS MD, Ot Z88.5 ALLERGY STATUS TO NARCOTIC AGENT STATUS 02/16/2018 AIDA DUEÑAS MD, Ot Z90.710 ACQUIRED ABSENCE OF BOTH CERVIX AND UTER 02/16/2018 AIDA DUEÑAS MD, Ot Z95.0 PRESENCE OF CARDIAC PACEMAKER 02/19/2018 AIDA DUEÑAS MD Ot E03.9 HYPOTHYROIDISM, UNSPECIFIED 02/19/2018 AIDA DUEÑAS MD Ot E78.00 PURE HYPERCHOLESTEROLEMIA, UNSPECIFIED 02/19/2018 AIDA DUEÑAS MD Ot F03.90 UNSPECIFIED DEMENTIA WITHOUT BEHAVIORAL 02/19/2018 AIDA DUEÑAS MD, Ot F32.9 MAJOR DEPRESSIVE DISORDER, SINGLE EPISOD 02/19/2018 AIDA DUEÑAS MD, Ot F41.9 ANXIETY DISORDER, UNSPECIFIED 02/19/2018 AIDA DUEÑAS MD Ot I11.0 HYPERTENSIVE HEART DISEASE WITH HEART FA 02/19/2018 AIDA DUEÑAS MD Ot I48.91 UNSPECIFIED ATRIAL FIBRILLATION 02/19/2018 AIDA DUEÑAS MD, Ot I50.9 HEART FAILURE, UNSPECIFIED 02/19/2018 AIDA DUEÑAS MD, Ot J44.9 CHRONIC OBSTRUCTIVE PULMONARY DISEASE, U 02/19/2018 AIDA DUEÑAS MD, Ot K21.9 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 02/19/2018 AIDA DUEÑAS MD Ot M79.621 PAIN IN RIGHT UPPER ARM 02/19/2018 AIDA DUEÑAS MD Ot M79.89 OTHER SPECIFIED SOFT TISSUE DISORDERS 02/19/2018 AIDA DUEÑAS MD Ot S40.021A CONTUSION OF RIGHT UPPER ARM, INITIAL EN 02/19/2018 AIDA DUEÑAS MD, Ot X58.XXXA EXPOSURE TO OTHER SPECIFIED FACTORS, INI 02/19/2018 AIDA DUEÑAS MD, Ot Z79.51 BRAKE LINING MAKER (CURRENT) USE OF INHALED STERO 02/19/2018 AIDA DUEÑAS MD, Ot Z82.49 FAMILY HX OF ISCHEM HEART DIS AND OTH DI 02/19/2018 AIDA DUEÑAS MD, Ot Z87.01 PERSONAL HISTORY OF PNEUMONIA (RECURRENT 02/19/2018 AIDA DUEÑAS MD Ot Z87.19 PERSONAL HISTORY OF OTHER DISEASES OF TH 02/19/2018 AIDA DUEÑAS MD, Ot Z87.442 PERSONAL HISTORY OF URINARY CALCULI 02/19/2018 AIDA DUEÑAS MD Ot Z88.0 ALLERGY STATUS TO PENICILLIN 02/19/2018 AIDA DUEÑAS MD Ot Z88.5 ALLERGY STATUS TO NARCOTIC AGENT STATUS 02/19/2018 AIDA DUEÑAS MD Ot Z90.710 ACQUIRED ABSENCE OF BOTH CERVIX AND UTER 02/19/2018 AIDA DUEÑAS MD Ot Z95.0 PRESENCE OF CARDIAC PACEMAKER 03/07/2018 Ot E78.5 HYPERLIPIDEMIA, UNSPECIFIED 03/07/2018 Ot 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 03/07/2018 Ot I10 ESSENTIAL (PRIMARY) HYPERTENSION 03/07/2018 Ot I25.10 ATHSCL HEART DISEASE OF [place] CORONARY 03/07/2018 Ot I48.0 PAROXYSMAL ATRIAL FIBRILLATION 03/07/2018 Ot R07.9 CHEST PAIN, UNSPECIFIED 03/19/2018 Ot E78.5 HYPERLIPIDEMIA, UNSPECIFIED 03/19/2018 Ot 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 03/19/2018 Ot I10 ESSENTIAL (PRIMARY) HYPERTENSION 03/19/2018 Ot I25.10 ATHSCL HEART DISEASE OF [place] CORONARY 03/19/2018 Ot I48.0 PAROXYSMAL ATRIAL FIBRILLATION 03/19/2018 Ot R07.9 CHEST PAIN, UNSPECIFIED 06/27/2018 KYLE YANG Ot E78.2 MIXED HYPERLIPIDEMIA 06/27/2018 KYLE YANG Ot I10 ESSENTIAL (PRIMARY) HYPERTENSION 06/27/2018 KYLE YANG Ot I25.10 ATHSCL HEART DISEASE OF [place] CORONARY 06/27/2018 KYLE YANG Ot I65.23 OCCLUSION AND STENOSIS OF BILATERAL [place] 06/27/2018 KYLE YANG Ot E78.2 MIXED HYPERLIPIDEMIA 06/27/2018 MADRIGAL-ALEXANDER PA, KYLE K Ot I10 ESSENTIAL (PRIMARY) HYPERTENSION 06/27/2018 ROHAN-ALEXANDER PA, KYLE K Ot I25.10 ATHSCL HEART DISEASE OF [place] CORONARY 06/27/2018 MADRIGAL-ALEXANDER PA, KYLE K Ot I65.23 OCCLUSION AND STENOSIS OF BILATERAL [place] 07/06/2018 MADRIGAL-ALEXANDER PA, KYLE K Ot E78.2 MIXED HYPERLIPIDEMIA 07/06/2018 MADRIGAL-ALEXANDER PA, KYLE K Ot I10 ESSENTIAL (PRIMARY) HYPERTENSION 07/06/2018 MADRIGAL-ALEXANDER PA, KYLE K Ot I25.10 ATHSCL HEART DISEASE OF [place] CORONARY 07/06/2018 MADRIGAL-ALEXANDER PA, KYLE K Ot I65.23 OCCLUSION AND STENOSIS OF BILATERAL [place] 07/09/2018 MADRIGAL-ALEXANDER PA, KYLE K Ot E78.2 MIXED HYPERLIPIDEMIA 07/09/2018 MADRIGAL-ALEXANDER PA, KYLE K Ot I10 ESSENTIAL (PRIMARY) HYPERTENSION 07/09/2018 MADRIGAL-ALEXANDER PA, KYLE K Ot I25.10 ATHSCL HEART DISEASE OF [place] CORONARY 07/09/2018 MADRIGAL-ALEXANDER PA, KYLE K Ot 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, 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 07/09/2018 ROHAN-ALEXANDER PA, KYLE K Ot K44.9 DIAPHRAGMATIC HERNIA WITHOUT OBSTRUCTION 07/09/2018 ROHAN-ALEXANDER PA, KYLE K Ot N28.1 CYST OF KIDNEY, ACQUIRED 07/12/2018 MADRIGAL-ALEXANDER PA, KYLE K Ot E78.2 MIXED HYPERLIPIDEMIA 07/12/2018 MADRIGAL-ALEXANDER PA, KYLE K Ot I10 ESSENTIAL (PRIMARY) HYPERTENSION 07/12/2018 MADRIGAL-ALEXANDER PA, KYLE K Ot I25.10 ATHSCL HEART DISEASE OF [place] CORONARY 07/12/2018 MADRIGAL-ALEXANDER PA, KYLE K Ot 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, 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 07/12/2018 MADRIGAL-ALEXANDER PA, KYLE K Ot K44.9 DIAPHRAGMATIC HERNIA WITHOUT OBSTRUCTION 07/12/2018 ROHAN-ALEXANDER PA, KYLE K Ot N28.1 CYST OF KIDNEY, ACQUIRED 07/19/2018 MADRIGAL-ALEXANDER PA, KYLE K Ot E78.2 MIXED HYPERLIPIDEMIA 07/19/2018 KYLE YANG Ot I10 ESSENTIAL (PRIMARY) HYPERTENSION 07/19/2018 KYLE YANG Ot I25.10 ATHSCL HEART DISEASE OF [place] CORONARY 07/19/2018 KYLE YANG Ot 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, 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 07/19/2018 JACQUES QUINTANILLA KYLE K Ot K44.9 DIAPHRAGMATIC HERNIA WITHOUT OBSTRUCTION 07/19/2018 KYLE YANG Ot N28.1 CYST OF KIDNEY, ACQUIRED 10/10/2018 NOEL ZARAGOZA TRIPLE DRUM OPERATOR Ot R05 COUGH 10/10/2018 NOEL ZARAGOZA TRIPLE DRUM OPERATOR Ot R09.89 OTH SYMPTOMS AND SIGNS INVOLVING THE CIR 10/10/2018 NOEL ZARAGOZA TRIPLE DRUM OPERATOR Ot R91.8 OTHER NONSPECIFIC ABNORMAL FINDING OF [place] 10/10/2018 NOEL ZARAGOZA TRIPLE DRUM OPERATOR Ot Z95.0 PRESENCE OF CARDIAC PACEMAKER 10/26/2018 LUCIANO SALOMON Ot I25.10 ATHSCL HEART DISEASE OF [place] CORONARY 10/26/2018 LUCIANO SALOMON ASSISTANT SPA DIRECTOR Ot I70.0 ATHEROSCLEROSIS OF [place] 10/26/2018 LUCIANO SALOMONP Ot 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, 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 10/26/2018 LUCIANO SALOMONP Ot K22.8 OTHER SPECIFIED DISEASES OF ESOPHAGUS 10/26/2018 LUCIANO SALOMONP Ot K44.9 DIAPHRAGMATIC HERNIA WITHOUT OBSTRUCTION 10/26/2018 LUCIANO SALOMON ASSISTANT SPA DIRECTOR Ot R91.8 OTHER NONSPECIFIC ABNORMAL FINDING OF [place] 10/30/2018 NOEL ZARAGOZA TRIPLE DRUM OPERATOR Ot R05 COUGH 10/30/2018 NOEL ZARAGOZA TRIPLE DRUM OPERATOR Ot R09.89 OTH SYMPTOMS AND SIGNS INVOLVING THE CIR 10/30/2018 NOEL ZARAGOZA TRIPLE DRUM OPERATOR Ot R91.8 OTHER NONSPECIFIC ABNORMAL FINDING OF [place] 10/30/2018 NOEL ZARAGOZA TRIPLE DRUM OPERATOR Ot Z95.0 PRESENCE OF CARDIAC PACEMAKER 11/14/2018 LUCIANO SALOMON ASSISTANT SPA DIRECTOR Ot I25.10 ATHSCL HEART DISEASE OF [place] CORONARY 11/14/2018 LUCIANO SALOMON ASSISTANT SPA DIRECTOR Ot I70.0 ATHEROSCLEROSIS OF [place] 11/14/2018 LUCIANO SALOMONP Ot 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, 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 11/14/2018 LUCIANO SALOMON Ot K22.8 OTHER SPECIFIED DISEASES OF ESOPHAGUS 11/14/2018 LUCIANO SALOMON Ot K44.9 DIAPHRAGMATIC HERNIA WITHOUT OBSTRUCTION 11/14/2018 LUCIANO SALOMON Ot R91.8 OTHER NONSPECIFIC ABNORMAL FINDING OF [place] 11/29/2018 MINO GARCIA MD, Ot Z01.818 ENCOUNTER FOR OTHER PREPROCEDURAL EXAMIN 11/29/2018 MINO GARCIA MD, Ot Z01.818 ENCOUNTER FOR OTHER PREPROCEDURAL EXAMIN 11/30/2018 MINO GARCIA MD, Ot Z01.818 ENCOUNTER FOR OTHER PREPROCEDURAL EXAMIN Procedures Code Description Performed By Performed On [...] Automated erythrocyte mean corpuscular hemoglobin concentration measurement (mass/volume) 32 g/dL 32-36 Automated erythrocyte distribution width ratio 14.7 % 10.0- 14.5 Automated blood platelet count (count/volume) 207 10*3/uL [...] Blood monocytes automated count (number/volume) 0.7 10*3 0.0- 1.0 Automated eosinophil count 0.1 10*3/uL 0.0-0.3 Automated [...] Serum or plasma aspartate aminotransferase measurement (enzymatic activity/volume) 63 U/L 5-34 Serum or plasma alanine aminotransferase measurement (enzymatic activity/volume) 73 U/L 0-55 Serum or plasma protein measurement (mass/volume) 7.6 g/dL 6.4-8.2 Serum or plasma albumin measurement (mass/volume) 4.2 g/dL 3.2-4.5 Serum or plasma troponin i.cardiac measurement (mass/volume) - 02/25/16 13:57 Serum or plasma troponin i.cardiac measurement (mass/volume) < ng/mL <0.30 Complete blood count (CBC) with automated [...] Automated erythrocyte mean corpuscular hemoglobin concentration measurement (mass/volume) 33 g/dL 32-36 Automated erythrocyte distribution width ratio 14.8 % 10.0- 14.5 Automated blood platelet count (count/volume) 159 10*3/uL [...] Blood monocytes automated count (number/volume) 0.4 10*3 0.0- 1.0 Automated eosinophil count 0.1 10*3/uL 0.0-0.3 Automated [...] or plasma urea nitrogen/creatinine mass ratio 18 NR Serum or plasma creatinine measurement with calculation of estimated glomerular filtration rate 50 NR Serum or plasma glucose measurement (mass/volume) 152 mg/dL 70-105 Serum or plasma calcium measurement (mass/volume) 9.2 mg/dL 8.5-10.1 Serum or plasma total bilirubin measurement (mass/volume) 0.9 mg/dL 0.1-1.0 Serum or plasma alkaline phosphatase measurement (enzymatic activity/volume) 57 U/L 40-136 Serum or plasma aspartate aminotransferase measurement (enzymatic activity/volume) 32 U/L 5-34 Serum or plasma alanine aminotransferase measurement (enzymatic activity/volume) 34 U/L 0-55 Serum or plasma protein measurement (mass/volume) 7.3 g/dL 6.4-8.2 Serum or plasma albumin measurement (mass/volume) 4.1 g/dL 3.2-4.5 Magnesium - 06/22/17 02:40 Magnesium 2.0 mg/dL 1.8-2.4 Serum or plasma C reactive protein measurement (mass/volume) - 06/22/17 02:40 Serum or plasma C reactive protein measurement (mass/volume) 0.13 mg/dL 0.00-0.50 Digoxin - 06/22/17 02:40 Digoxin 0.45 ng/mL 0.80-2.00 Serum or plasma lithium measurement (moles/volume) - 06/22/17 02:40 BNP level 78.6 pg/mL <100.0 Bacterial blood culture - 06/22/17 02:40 QUANTITY OF GROWTH . [facility] Bacterial blood culture SEE [facility] Influenza virus A and B antigen detection - 06/22/17 03:00 FLU RESULT NEGATIVE FOR INFLUENZA A AND B ANTIGENS BY IA [facility] Blood lactic acid measurement (moles/volume) - 06/22/17 03:05 Blood lactic acid measurement (moles/volume) 1.13 mmol/L 0.50- 2.00 Bacterial blood culture - 06/22/17 03:05 Bacterial blood culture NG [facility] Capillary blood glucose measurement by glucometer (mass/volume) - 06/22/17 06:25 Capillary blood glucose measurement by glucometer (mass/volume) [...] Automated erythrocyte mean corpuscular hemoglobin concentration measurement (mass/volume) 32 g/dL 32-36 Automated erythrocyte distribution width ratio 14.1 % 10.0- 14.5 Automated blood platelet count (count/volume) 137 10*3/uL [...] Blood monocytes automated count (number/volume) 0.6 10*3 0.0- 1.0 Automated eosinophil count 0.0 10*3/uL 0.0-0.3 Automated [...] Blood anisocytosis detection by light microscopy SLIGHT NR Whole blood basic metabolic panel - 06/22/17 [...] gravity of urine by test strip 1.005 1.016-1.022 Urine protein assay by test strip, semi-quantitative [...] sediment leukocyte count by microscopy (number/high power field) NONE NRG Bacteria detection in urine sediment [...] glucose measurement by glucometer (mass/volume) - 06/22/17 11:43 Capillary blood glucose measurement by glucometer (mass/volume) 120 mg/dL 70-110 Capillary blood glucose measurement by glucometer (mass/volume) - 06/22/17 15:59 Capillary blood glucose measurement by glucometer (mass/volume) 189 mg/dL 70-110 Capillary blood glucose measurement by glucometer (mass/volume) - 06/22/17 20:31 Capillary blood glucose measurement by glucometer (mass/volume) 182 mg/dL 70-110 Capillary blood glucose measurement by glucometer (mass/volume) - 06/23/17 05:06 Capillary blood glucose measurement by glucometer (mass/volume) [...] Automated erythrocyte mean corpuscular hemoglobin concentration measurement (mass/volume) 36 g/dL 32-36 Automated erythrocyte distribution width ratio 13.9 % 10.0- 14.5 Automated blood platelet count (count/volume) 130 10*3/uL [...] Serum or plasma aspartate aminotransferase measurement (enzymatic activity/volume) 16 U/L 5-34 Serum or plasma alanine aminotransferase measurement (enzymatic activity/volume) 23 U/L 0-55 Serum or plasma protein measurement (mass/volume) 6.3 g/dL 6.4-8.2 Serum or plasma albumin measurement (mass/volume) 3.5 g/dL 3.2-4.5 Capillary blood glucose measurement by glucometer (mass/volume) - 06/23/17 11:23 Capillary blood glucose measurement by glucometer (mass/volume) 110 mg/dL 70-110 Capillary blood glucose measurement by glucometer (mass/volume) - 06/23/17 16:24 Capillary blood glucose measurement by glucometer (mass/volume) 226 mg/dL 70-110 Capillary blood glucose measurement by glucometer (mass/volume) - 06/23/17 20:53 Capillary blood glucose measurement by glucometer (mass/volume) 186 mg/dL 70-110 Capillary blood glucose measurement by glucometer (mass/volume) - 06/24/17 03:13 Capillary blood glucose measurement by glucometer (mass/volume) 167 mg/dL 70-110 Capillary blood glucose measurement by glucometer (mass/volume) - 06/24/17 06:14 Capillary blood glucose measurement by glucometer (mass/volume) 171 mg/dL 70-110 Capillary blood glucose measurement by glucometer (mass/volume) - 06/24/17 11:04 Capillary blood glucose measurement by glucometer (mass/volume) 161 mg/dL 70-110 Capillary blood glucose measurement by glucometer (mass/volume) - 06/24/17 15:44 Capillary blood glucose measurement by glucometer (mass/volume) 212 mg/dL 70-110 Capillary blood glucose measurement by glucometer (mass/volume) - 06/24/17 20:56 Capillary blood glucose measurement by glucometer (mass/volume) 189 mg/dL 70-110 Capillary blood glucose measurement by glucometer (mass/volume) - 06/25/17 05:36 Capillary blood glucose measurement by glucometer (mass/volume) [...] Automated erythrocyte mean corpuscular hemoglobin concentration measurement (mass/volume) 33 g/dL 32-36 Automated erythrocyte distribution width ratio 14.5 % 10.0- 14.5 Automated blood platelet count (count/volume) 155 10*3/uL [...] Blood monocytes automated count (number/volume) 0.5 10*3 0.0- 1.0 Automated eosinophil count 0.0 10*3/uL 0.0-0.3 Automated [...] Serum or plasma aspartate aminotransferase measurement (enzymatic activity/volume) 22 U/L 5-34 Serum or plasma alanine aminotransferase measurement (enzymatic activity/volume) 24 U/L 0-55 Serum or plasma protein measurement (mass/volume) 6.1 g/dL 6.4-8.2 Serum or plasma albumin measurement (mass/volume) 3.4 g/dL 3.2-4.5 Capillary blood glucose measurement by glucometer (mass/volume) - 06/25/17 12:18 Capillary blood glucose measurement by glucometer (mass/volume) 169 mg/dL 70-110 Capillary blood glucose measurement by glucometer (mass/volume) - 06/25/17 16:11 Capillary blood glucose measurement by glucometer (mass/volume) 186 mg/dL 70-110 Capillary blood glucose measurement by glucometer (mass/volume) - 06/25/17 20:15 Capillary blood glucose measurement by glucometer (mass/volume) 202 mg/dL 70-110 Capillary blood glucose measurement by glucometer (mass/volume) - 06/26/17 05:42 Capillary blood glucose measurement by glucometer (mass/volume) 164 mg/dL 70-110 Capillary blood glucose measurement by glucometer (mass/volume) - 06/26/17 10:42 Capillary blood glucose measurement by glucometer (mass/volume) 162 mg/dL 70-110 Capillary blood glucose measurement by glucometer (mass/volume) - 06/26/17 15:29 Capillary blood glucose measurement by glucometer (mass/volume) 151 mg/dL 70-110 Capillary blood glucose measurement by glucometer (mass/volume) - 06/26/17 20:45 Capillary blood glucose measurement by glucometer (mass/volume) 213 mg/dL 70-110 Capillary blood glucose measurement by glucometer (mass/volume) - 06/27/17 05:40 Capillary blood glucose measurement by glucometer (mass/volume) 191 mg/dL 70-110 Capillary blood glucose measurement by glucometer (mass/volume) - 06/27/17 11:58 Capillary blood glucose measurement by glucometer (mass/volume) [...] Automated erythrocyte mean corpuscular hemoglobin concentration measurement (mass/volume) 32 g/dL 32-36 Automated erythrocyte distribution width ratio 14.2 % 10.0- 14.5 Automated blood platelet count (count/volume) 171 10*3/uL [...] Blood monocytes automated count (number/volume) 0.4 10*3 0.0- 1.0 Automated eosinophil count 0.1 10*3/uL 0.0-0.3 Automated [...] Serum or plasma aspartate aminotransferase measurement (enzymatic activity/volume) 16 U/L 5-34 Serum or plasma alanine aminotransferase measurement (enzymatic activity/volume) 16 U/L 0-55 Serum or plasma protein measurement (mass/volume) 6.7 g/dL 6.4-8.2 Serum or plasma albumin measurement (mass/volume) 3.9 g/dL 3.2-4.5 Serum or plasma troponin i.cardiac measurement (mass/volume) - 09/17/17 09:32 Serum or plasma troponin i.cardiac measurement (mass/volume) < ng/mL <0.30 Serum or plasma lithium measurement (moles/volume) - 09/17/17 09:32 BNP level 117.6 pg/mL <100.0 Serum or plasma C reactive protein measurement (mass/volume) - 09/17/17 09:32 Serum or plasma C reactive protein measurement (mass/volume) 0.29 mg/dL 0.00-0.50 Complete blood count (CBC) with automated [...] Automated erythrocyte mean corpuscular hemoglobin concentration measurement (mass/volume) 32 g/dL 32-36 Automated erythrocyte distribution width ratio 14.3 % 10.0- 14.5 Automated blood platelet count (count/volume) 205 10*3/uL [...] Blood monocytes automated count (number/volume) 0.5 10*3 0.0- 1.0 Automated eosinophil count 0.1 10*3/uL 0.0-0.3 Automated [...] Serum or plasma aspartate aminotransferase measurement (enzymatic activity/volume) 21 U/L 5-34 Serum or plasma alanine aminotransferase measurement (enzymatic activity/volume) 21 U/L 0-55 Serum or plasma protein measurement (mass/volume) 6.7 g/dL 6.4-8.2 Serum or plasma albumin measurement (mass/volume) 4.1 g/dL 3.2-4.5 Erythrocyte sedimentation rate by westergren method - 10/27/17 16:27 Erythrocyte sedimentation rate by westergren method 11 mm 0-30 Serum or plasma troponin i.cardiac measurement (mass/volume) - 10/27/17 16:27 Serum or plasma troponin i.cardiac measurement (mass/volume) < ng/mL <0.30 Complete urinalysis with reflex to culture - 12/06/17 17:30 Urine color determination YELLOW NRG Urine clarity determination CLEAR NRG Urine pH measurement by test strip 6 5-9 Specific gravity of urine by test strip 1.010 1.016-1.022 Urine protein assay by test strip, semi-quantitative [...] sediment leukocyte count by microscopy (number/high power field) NONE NRG Bacteria detection in urine sediment [...] Automated erythrocyte mean corpuscular hemoglobin concentration measurement (mass/volume) 34 g/dL 32-36 Automated erythrocyte distribution width ratio 14.8 % 10.0- 14.5 Automated blood platelet count (count/volume) 214 10*3/uL [...] Blood monocytes automated count (number/volume) 0.5 10*3 0.0- 1.0 Automated eosinophil count 0.1 10*3/uL 0.0-0.3 Automated [...] Serum or plasma aspartate aminotransferase measurement (enzymatic activity/volume) 26 U/L 5-34 Serum or plasma alanine aminotransferase measurement (enzymatic activity/volume) 27 U/L 0-55 Serum or plasma protein measurement (mass/volume) 7.5 g/dL 6.4-8.2 Serum or plasma albumin measurement (mass/volume) 4.3 g/dL 3.2-4.5 Serum or plasma troponin i.cardiac measurement (mass/volume) - 12/06/17 17:38 Serum or plasma troponin i.cardiac measurement (mass/volume) < ng/mL <0.30 Capillary blood glucose measurement by glucometer (mass/volume) - 12/06/17 18:25 Capillary blood glucose measurement by glucometer (mass/volume) 111 mg/dL 70-110 [id number] - 06/26/18 09:26 Serum or plasma urea nitrogen measurement (mass/volume) 29 mg/dL 7-18 Serum or plasma creatinine measurement (mass/volume) 1.33 mg/dL 0.60-1.30 Serum or plasma urea nitrogen/creatinine mass ratio 22 NRG Serum or plasma creatinine measurement with calculation of estimated glomerular filtration rate 38 NRG Encounters ACCT No. Visit Date/Time Discharge Status Pt. Type Provider Facility Loc./Unit Complaint [id number] 11/29/2018 14:55:00 11/29/2018 15:30:00 DIS Outpatient MINO GARCIA MD [facility] PREOP EGD [id number] 11/20/2018 08:11:00 11/20/2018 23:59:59 CLS Preadmit MARGO NATION, CURT Montes De Oca [facility] CARD CAD,CHEST PAIN [id number] 10/16/2018 10:58:00 10/16/2018 23:59:59 CLS Outpatient LUCIANO SALOMON [facility] RAD MODULAR OPACITY LT CHEST [id number] 10/10/2018 12:59:00 10/10/2018 23:59:59 CLS Outpatient NOEL ZARAGOZA APRN [facility] RAD COUGH,CONGESTION [id number] 07/06/2018 09:13:00 07/06/2018 23:59:59 CLS Outpatient KYLE YANG [facility] RAD CAD [id number] 02/16/2018 10:54:00 02/16/2018 14:26:00 DIS Emergency LEANA NATION, AIDA Ibarra [facility] ER RT ARM DISCOLORED [id number] 01/24/2018 09:30:00 01/24/2018 23:59:59 CLS Preadmit RADHA NATION, MINO [facility] ENDO DYSPHAGIA/COUGH [id number] 12/06/2017 17:04:00 12/06/2017 19:10:00 DIS Emergency CL ROSALES APRN [facility] ER COUGH;MUSCLE PAIN;WEAKNESS [id number] 10/27/2017 16:10:00 10/27/2017 18:26:00 DIS Emergency KAITLYNN NATION, LACY Barnard [facility] ER CHEST PAIN [id number] 09/17/2017 09:14:00 09/17/2017 11:39:00 DIS Emergency LEANA NATION, AIDA Ibarra [facility] ER COLD, CONGESTION IN CHEST [id number] 06/22/2017 03:30:00 06/27/2017 14:50:00 DIS Inpatient ABY NATION, CARTER Saldivar [facility] 4TH PNA-CAP,RESPIRATORY DISTRESS,HYPOXIA [id number] 04/27/2017 14:16:00 04/27/2017 23:59:59 CLS Outpatient MADHURI NATION, BERTHA Daniels [facility] RAD Z51.81, Z79.899 [id number] 03/09/2017 12:29:00 03/09/2017 23:59:59 CLS Outpatient NOEL ZARAGOZA APRN [facility] RAD SCREENING [id number] 12/28/2016 14:42:00 12/28/2016 23:59:59 CLS Outpatient MELY METCALF DO [facility] RT DEMENTIA F03.90, ANXIETY F41.9,OBESITY E66.9 [id number] 11/07/2016 14:16:00 12/06/2016 16:00:00 DIS Outpatient ANJELICA HUBBARD MD [facility] WOUNDCARE [id number] 09/16/2016 09:52:00 09/16/2016 23:59:59 CLS Outpatient BERTHA DHALIWAL MD [facility] RAD Z51.81,Z79.899 [id number] 08/21/2016 11:22:00 08/21/2016 11:54:00 DIS Emergency TAD BOSS [facility] ER WOUND CHECK [id number] 08/20/2016 19:20:00 08/20/2016 22:45:00 DIS Emergency TAD BOSS [facility] ER BLEEDING AT SURGICAL SITE [id number] 07/05/2016 09:17:00 07/05/2016 23:59:59 CLS Outpatient CARTER BADILLO MD [facility] RAD ABNORMAL CHEST XRAY,FOLLOW UP THYROID NODULES [id number] 07/05/2016 09:11:00 07/05/2016 23:59:59 CLS Outpatient KYLE YANG [facility] RAD AORTIC ANEURYSM, THORACIC [id number] 06/30/2016 07:34:00 06/30/2016 23:59:59 CLS Outpatient SNOW PIERCE DPM [facility] RAD LIPOMA RIGHT ANKLE [id number] 06/30/2016 10:00:00 06/30/2016 10:00:00 CAN Preadmit NOEL ZARAGOZA APRN [facility] RAD ABNORMAL CHEST XR [id number] 03/07/2016 14:51:00 03/07/2016 23:59:59 CLS Outpatient NOEL ZARAGOZA APRN [facility] RAD SCREENING [id number] 02/25/2016 13:37:00 02/25/2016 23:59:59 CLS Outpatient NOEL ZARAGOZA APRN [facility] CARD CHEST PAIN,BACK PAIN,DIAPHORESIS [id number] 01/06/2016 20:56:00 01/07/2016 06:35:00 DIS Outpatient CARTER BADILLO MD [facility] SLEEP OBSERVED APNEAS,SNORING,NAYELI,HTN,DAYTIME SLEEPINESS [id number] 11/08/2015 08:47:00 11/08/2015 09:55:00 DIS Emergency BEV NATION, FRANCISCO Hurst [facility] ER SORE THROAT,BILAT EAR PAIN [id number] 10/02/2015 12:45:00 10/02/2015 23:59:59 CLS Outpatient BERTHA DHALIWAL MD [facility] RAD ENCOUNTER FOR MONITORING AMIODARONE THERAPY [id number] 07/15/2015 10:25:00 07/15/2015 14:10:00 DIS Outpatient MINO GARCIA MD [facility] SDC DYSPHAGIA [id number] 07/13/2015 14:55:00 07/13/2015 23:59:59 CLS Outpatient MINO GARCIA MD [facility] PREOP DYSPHAGIA [id number] 06/30/2015 09:23:00 06/30/2015 23:59:59 CLS Outpatient LUCIANO SALOMON [facility] RAD THYROID NODULES [id number] 06/10/2015 07:33:00 06/10/2015 23:59:59 CLS Outpatient CURT ARAGON MD [facility] CARD CAD,CAROTID ARTERY STENOSIS,HTN,HYPERLIPIDEMIA [id number] 06/09/2015 07:46:00 06/09/2015 23:59:59 CLS Outpatient KYLE YANG [facility] CARD CAD,CAROTID ARTERY STENOSIS,HTN,HYPERLIPIDEMIA [id number] 05/12/2015 12:34:00 05/12/2015 23:59:59 CLS Outpatient CARTER BADILLO MD [facility] RAD NECK AND RIGHT SHOULDER PAIN, [id number] 05/06/2015 16:53:00 05/06/2015 19:22:00 DIS Emergency JAMES MOTTA DO [facility] ER HEADACHE,NAUSEA,WEAKNESS [id number] 02/18/2015 11:16:00 02/18/2015 23:59:59 CLS Outpatient LUCIANO SALOMON ASSISTANT SPA DIRECTOR [facility] RAD SCREENING [id number] 12/22/2014 11:08:00 12/22/2014 23:59:59 CLS Outpatient LUCIANO SALOMON ASSISTANT SPA DIRECTOR [facility] RAD HYPOTHYROIDISM [id number] 11/19/2014 06:46:00 11/19/2014 23:59:59 CLS Outpatient MADHURI NATION, BERTHA Daniels [facility] RT PAROXYSMAL ATRIAL FIBRILLATION [id number] 10/22/2014 16:19:00 10/22/2014 20:14:00 DIS Emergency LEANA NATION, AIDA Ibarra [facility] ER SOA [id number] 05/21/2014 07:00:00 05/22/2014 10:20:00 DIS Outpatient MARGO NATION, CURT Montes De Oca [facility] CATH ABNORMAL STRESS, CP,HTN,HLP [id number] 05/08/2014 10:24:00 05/08/2014 23:59:59 CLS Outpatient KYLE YANG [facility] CARD CAD,CP,HTN [id number] 05/05/2014 07:44:00 05/05/2014 23:59:59 CLS Outpatient KYLE YANG [facility] CARD CAD,CP,HTN [id number] 02/13/2014 13:07:00 02/13/2014 23:59:59 CLS Outpatient JULISA NATION, ARUNA Vale [facility] RAD SCREENING [id number] 11/25/2013 09:01:00 11/25/2013 10:21:00 DIS Emergency KALIA JAMES DICK [facility] ER CHEST/UPPER BACK PAIN [id number] 09/16/2013 08:15:00 09/16/2013 23:59:59 CLS Outpatient PJ ALMANZAR MD, I [facility] RAD ABD PAIN [id number] 07/08/2013 16:33:00 07/08/2013 23:59:59 CLS Outpatient CURT ARAGON MD [facility] RAD CAD,CVA [id number] 12/18/2012 11:15:00 12/21/2012 22:00:00 DIS Inpatient ARUNA EGAN MD [facility] CSD CHEST PAIN [id number] 12/10/2012 12:35:00 12/10/2012 23:59:59 CLS Outpatient ARUNA EGAN MD [facility] RAD L BREAST PAIN [id number] 01/31/2018 13:54:00 Document Registration [id number] 11/18/2014 11:44:00 Document Registration [id number] 11/18/2014 11:43:00 Document Registration [id number] 11/18/2014 11:43:00 Document Registration [id number] 11/18/2014 11:43:00 Document Registration [id number] 11/18/2014 11:43:00 Document Registration [id number] 09/24/2012 06:47:00 Document Registration [id number] 05/07/2012 07:04:00 Document Registration [id number] 05/04/2012 08:10:00 Document Registration [id number] 03/13/2012 12:47:00 Document Registration [id number] 12/15/2011 09:11:00 Document Registration [id number] 10/11/2011 12:54:00 Document Registration [id number] 09/14/2011 18:15:00 Document Registration [id number] 09/07/2011 12:10:00 Document Registration [id number] 12/03/2010 08:32:00 Document Registration [id number] 11/23/2010 13:43:00 Document Registration [id number] 06/10/2010 06:19:00 Document Registration [id number] 11/25/2009 07:50:00 Document Registration
== END 2018-12-05 11:25 | disposition home or self-care (01) ==
LOC: ENDO 09:00
PROVIDERS: ATTEND Surgery
DX: K21.0 Gastro-esophageal reflux disease with esophagitis (principal); K22.2 Esophageal obstruction; K44.9 Diaphragmatic hernia without obstruction or gangrene; K29.50 Unspecified chronic gastritis without bleeding; K31.84 Gastroparesis; E03.9 Hypothyroidism, unspecified; I10 Essential (primary) hypertension; F32.9 Major depressive disorder, single episode, unspecified; F41.9 Anxiety disorder, unspecified; M19.91 Primary osteoarthritis, unspecified site; E78.00 Pure hypercholesterolemia, unspecified; G30.9 Alzheimer's disease, unspecified; F02.80 Dementia in other diseases classified elsewhere, unspecified severity, without behavioral disturbance, psychotic disturbance, mood disturbance, and anxiety; Z88.5 Allergy status to narcotic agent; Z88.0 Allergy status to penicillin; Z96.653 Presence of artificial knee joint, bilateral; Z96.643 Presence of artificial hip joint, bilateral; Z95.0 Presence of cardiac pacemaker; Z79.899 Other long term (current) drug therapy

== ENCOUNTER → 2018-12-12 | Outpatient (CLI) | payer MEDICARE, OTHER, MEDICAID ==
[~2018-12-12] VITALS: Ht 167.6 cm; Wt 78.9 kg
[~2018-12-12] MED LIST changes: +CATHETER FLUSH 10 ML SYR IV PRN; +HYDR-3812 PO; +REGADENOSON 0.4 MG/5 ML SYR (LEXISCAN) IV ONE
[2018-12-12 09:00] VITALS: BP 145/76
[2018-12-12 09:07] VITALS: BP 133/74
--- NOTE | 2018-12-12 14:43 | STRESS TEST ---
DATE OF SERVICE: 12/12/2018 LEXISCAN MYOVIEW STRESS TEST REPORT REFERRING PHYSICIAN: Dr. Vega. Baseline heart rate is 82. Baseline blood pressure 145/67. Baseline EKG is sinus rhythm with left bundle branch block. In summary, the patient was injected with 10.53 mCi of technetium-99 Myoview and the resting images were obtained. Then, the patient received 0.4 mg of Lexiscan followed by 28.0 mCi of technetium-99 Myoview. Throughout the test, there were no EKG changes. The resting and stressed images were reviewed and compared in the short axis, horizontal long axis, and vertical long axis views. Review of the images showed reversible ischemia involving the inferoapical and mid to apical inferolateral wall with mild reversibility. SSS is 6, SDS 3, TID value 0.92. On the gated images, the left ventricle appeared to be in normal size with normal contractility. Calculated ejection fraction 59%. CONCLUSION: 1. The patient tolerated Lexiscan well. 2. Baseline left bundle branch block persisted throughout test. 3. Mild ischemia involving the inferoapical segment and mid to apical inferolateral wall. 4. Normal left ventricular size with normal contractility. Calculated ejection fraction 59%. Job ID: [id number] DocumentID: [id number] Dictated Date: 12/12/2018 13:50:23 Illuminating Engineer Date: 12/12/2018 14:42:23 Dictated By: CURT ARAGON MD
== END ==
LOC: CARD 07:19
PROVIDERS: ATTEND Internal Medicine Cardiovascular Disease
DX: I25.10 Atherosclerotic heart disease of native coronary artery without angina pectoris (principal); R07.9 Chest pain, unspecified; I51.9 Heart disease, unspecified
CPT/HCPCS: 78452; 93017

== ENCOUNTER 2018-12-14 07:56 | Day surgery (SDC) | payer MEDICARE, OTHER, MEDICAID ==
[2018-12-14] VITALS (8 sets, daily range): BP systolic 142–183; BP diastolic 70–91
[~2018-12-14] VITALS: Ht 167.6 cm; Wt 77.1 kg
[~2018-12-14 07:56] MED LIST changes: -CATHETER FLUSH 10 ML SYR IV PRN; -HYDR-3812 PO; -REGADENOSON 0.4 MG/5 ML SYR (LEXISCAN) IV ONE
[2018-12-14] MEDS ORDERED: LIDOCAINE 1% INJ 20 ML 20 ML VIAL ONE (08:00)
[2018-12-14] MEDS ORDERED: NS IV 1000 ML 1,000 ML ONE (08:01)
[2018-12-14] MEDS ORDERED: HEParin (CATH LAB) 2,000 ML IV ONE (08:01)
[2018-12-14] MEDS ORDERED: NS IV 1000 ML 1,000 ML IV SCH ×2 (08:06→11:29)
--- NOTE | 2018-12-14 08:27 | Diagnostic Imaging Report ---
EXAM: CHEST 1 VIEW, AP/PA ONLY INDICATION: Coronary artery disease. Arrhythmia. COMPARISON: Chest radiographs 10/10/2018. FINDINGS: Normal heart size and central pulmonary vascularity. Cardiac pacer. No focal pulmonary opacity, pleural effusion or pneumothorax. No acute osseous findings. IMPRESSION: No acute cardiopulmonary findings. Dictated by: Dictated on workstation # [id number]
[2018-12-14 08:58] LABS: HEMOGLOBIN 11.6 G/DL (11.5-16.0); RED CELL DISTRIBUTION WIDTH 14.4 % (10.0-14.5)
[2018-12-14] MEDS ORDERED: HYDR-3812 PO (09:07)
[2018-12-14 09:16] LABS: PROTHROMBIN TIME PATIENT 13.6 SEC (12.2-14.7)
[2018-12-14 09:21] LABS: ALBUMIN 3.7 GM/DL (3.2-4.5); BILIRUBIN,TOTAL 0.8 MG/DL (0.1-1.0); CREATININE SERUM 1.07 MG/DL (0.60-1.30); POTASSIUM 4.3 MMOL/L (3.6-5.0); TOTAL PROTEIN 6.2 GM/DL (6.4-8.2)
[2018-12-14] MEDS ORDERED: fentaNYL INJECTION 100 MCG/2 ML AMP ONE (10:27)
[2018-12-14] MEDS ORDERED: MIDAZOLAM 5 MG/5 ML (VERSED) VIAL ONE (10:27)
[2018-12-14] MEDS ORDERED: VERAPAMIL 5 MG/2 ML (CALAN) VIAL IV ONE (10:28)
[2018-12-14] MEDS ORDERED: HEParin 1000 UNIT/ML (10ML VIAL) FOR BOLUS ONE (10:28)
[2018-12-14] MEDS ORDERED: NITRO DRIP 25000 MCG/D5W 250 ML IV ONE (10:28)
--- NOTE | 2018-12-14 10:55 | Cardiac Procedure Note-CS/ASA ---
Pre-Procedure Note Pre-Op Procedure Note H&P Reviewed The H&P was reviewed, patient examined and no changes noted. Date H&P Reviewed: Dec 14, 2018 Time H&P Reviewed: 10:55 Conscious Sedation Pre-Proced Time 10:55 ASA Score 3 For ASA 3 and 4: Consider anesthesia and medical clearance. Also, for patients with a history of failed moderate sedation consider anesthesia. Airway Lungs Heart ASA score ASA 1: a normal healthy patient ASA 2: a patient with a mild systemic disease (mid diabetes, controlled hypertension, obesity x ASA 3: a patient with a severe systemic disease that limits activity (angina, COPD, prior Myocardial infarction) ASA 4: a patient with an incapacitating disease that is a constant threat to life (CHF, renal failure) ASA 5: a moribund patient not expected to survive 24 hrs. (ruptured aneurysm) ASA 6: a declared brain- patient whose organs are being harvested. For emergent operations, add the letter E after the classification Mallampati Classification Grade 3 Sedation Plan Analgesia, Amnesia, Plan communicated to team members, Discussed options with patient/fam, Discussed risks with patient/fam The patient is an appropriate candidate to undergo the planned procedure, sedation, and anesthesia. The patient immediately re-assessed prior to indication. CURT ARAGON MD Dec 14, 2018 10:55
--- NOTE | 2018-12-14 11:31 | Discharge Inst-Post CATH ---
Discharge Inst-CATH/EP Post Cardiac Cath/EP D/C Inst Follow Up/Plan Appointment with Dr. ARAGON's office in 4-6 weeks <b>CARDIAC CATH/EP PROCEDURE DISCHARGE INSTRUCTIONS</b> ACTIVITY * Go Home directly and rest. * Limit activity of the leg (or wrist if it was used) for 7 days including aerobics, swimming, jogging, bicycling, etc. * Restrict stair-climbing for 7 days if possible, if not, climb up with your non-cath leg, then bring together on the same step. * Avoid lifting, pushing, pulling or excessive movement of the affected extremity for 7 days. * Customary sexual activity may be resumed after 2 days-use caution not to use a position that strains or causes pain to the affected extremity. * No driving for 24 hours. * NO SMOKING. * Avoid straining for bowel movements for 7 days. * Gentle walking on level ground is allowed. * Returning to work will depend on the type of procedure and the results. Your doctor will discuss this with you. CALL YOUR DOCTOR FOR ANY OF THE FOLLOWING: *If bleeding from the puncture site occurs- Apply gentle pressure to site with clean cloth and call your doctor or EMS. * If a knot or lump forms under the skin, increases in size, or causes pain. * If bruising appears to be worsening or moving further down your leg instead of disappearing. * Temperature above 101 F. CARE OF YOUR GROIN INCISION; * Bruising or purple discoloration of the skin near the puncture site is common. * You may shower only, no bathtub bathing for 5 days. Be careful to avoid slipping as your leg may feel stiff. * If a closure device was used on your femoral artery, please see the attached guide regarding care of the device and your leg. * Leave dressing on FOR 24 hours. CARE OF YOUR WRIST INCISION; * Bruising or purple discoloration of the skin near the puncture site is common. * You may shower. * DO NOT submerge wrist. * Leave dressing on FOR 24 hours. CURT ARAGON MD Dec 14, 2018 11:31 am
--- NOTE | 2018-12-14 11:35 | Cardiac Cath Report ---
Cardiac Cath Report Physician (s)/Helicopter Crew Chief (s) Physician CURT ARAGON MD Pre-Procedure Diagnosis Pre-Procedure Diagnosis: coronary artery disease Post-Procedure Note Procedure Start Date: Dec 14, 2018 Name of Procedure: Left heart catheterization Aortic arch angiogram Findings/Procedure Note PROCEDURE NOTE: 83 years old lady with history of coronary artery disease, history of thoracic aortic aneurysm, had an abnormal stress test, scheduled for cardiac catheterization possible PTCA. After explaining the procedure to the patient, all pros and cons were explained, all questions were answered. The patient signed the consent and then she was placed on the cardiac catheterization laboratory. Groin was prepped SL fashion local anesthesia was used. Sheath placed in the right radial artery, [place] catheter was used to advanced to the left ventricular cavity, pressure was measured then pulled back to the left main coronary system and angiogram was done, I was unable to intubate the right coronary system due to the aneurysm, I exchanged the catheter over a long J-wire into JR catheter and advanced it and intubated the right coronary artery and angiogram was done then I pulled the catheter the aortic arch and aortic arch angiogram was done. At the end of the procedure the sheath was removed. Vascular band was used FINDINGS: Hemodynamics LV 128/8, end-diastolic pressure of 8 Aorta 119/54 mean of 81 ANATOMY: Left Main is free of obstructive disease Left Anterior Descending has mild disease nonobstructive disease Left Circumflex has mild disease nonobstructive disease Right Coronory Artery is dominant with mild disease nonobstructive disease LV Gram was not done, pressure was measured Aorta evaluation done with aortic arch angiogram which showed dilated ascending aorta and aortic arch with calcification in the arch, the innominate artery and subclavian artery are patent, carotid artery appeared to be patent CONCLUSION: 1. Rjoy-kn-[id number] coronary artery disease nonobstructive disease 2. Ascending aortic aneurysm with atherosclerotic disease 3. Normal left ventricular end-diastolic pressure DISCUSSION AND RECOMMENDATION: Medical therapy is recommended no intervention is needed Anesthesia Type: Conscious Sedation Estimated blood loss (mL): 10 ml Contrast Amount: 40 ml Total Radiation Dose: 277 mGy Post-Procedure Diagnosis Post-operative diagnosis: Chest pain Coronary artery disease Hypertension Hyperlipidemia Thoracic aortic aneurysm CURT ARAGON MD Dec 14, 2018 11:35 am
--- NOTE | 2018-12-14 14:15 | NUR ---
normal saline 1000 infused
== END 2018-12-14 14:20 | disposition home or self-care (01) ==
LOC: CATH 07:56 → SDC 11:46 → CATH 14:20
PROVIDERS: ATTEND Internal Medicine Cardiovascular Disease
DX: I25.10 Atherosclerotic heart disease of native coronary artery without angina pectoris (principal); I10 Essential (primary) hypertension; E78.5 Hyperlipidemia, unspecified; I71.2 Thoracic aortic aneurysm, without rupture; I70.0 Atherosclerosis of aorta; I48.0 Paroxysmal atrial fibrillation; I49.5 Sick sinus syndrome; E03.9 Hypothyroidism, unspecified; F41.9 Anxiety disorder, unspecified; F32.9 Major depressive disorder, single episode, unspecified; G47.33 Obstructive sleep apnea (adult) (pediatric); F03.90 Unspecified dementia, unspecified severity, without behavioral disturbance, psychotic disturbance, mood disturbance, and anxiety; Z95.0 Presence of cardiac pacemaker; Z79.82 Long term (current) use of aspirin; Z79.899 Other long term (current) drug therapy
CPT/HCPCS: 36221; 36415; 36430; 71045; 80053; 80061; 85027; 85610; 85730; 87081; 93458

== ENCOUNTER 2019-02-13 05:33 | Outpatient (CLI) | payer MEDICARE, OTHER, MEDICAID ==
[~2019-02-13] VITALS: Ht 167.6 cm; Wt 77.1 kg
[~2019-02-13 05:33] MED LIST changes: +HYDR-3812 PO; +LIOT5TAB PO; -LIOT5TAB3 PO
[2019-02-13] MEDS ORDERED: METO5TAB2 PO (11:32)
[2019-02-13] MEDS ORDERED: FURO40TA4 PO (11:33)
== END 2019-02-13 11:34 | disposition home or self-care (01) ==
LOC: PREOP 05:33
PROVIDERS: ATTEND Surgery
DX: Z01.818 Encounter for other preprocedural examination (principal)

== ENCOUNTER → 2019-04-17 | Outpatient (CLI) | payer MEDICARE, OTHER, MEDICAID ==
[~2019-04-17] MED LIST changes: +METO5TAB2 PO
--- NOTE | 2019-04-17 10:46 | Diagnostic Imaging Report ---
INDICATION: COUGH DYSPNEA COMPARISON: 12/14/2018 FINDINGS: Frontal and lateral views of the chest demonstrate normal heart size and pulmonary vascularity. The lungs are clear. There are no signs of infiltrate, pleural effusions or pneumothoraces. The visualized osseous structures show no acute abnormalities. Moderate sized hiatal hernia is noted. Left-sided dual-lead pacemaker is present. Note is also made of calcified aortic atherosclerosis. IMPRESSION: 1. No acute process. No signs of infiltrates, effusions or pneumothoraces. Dictated by: Dictated on workstation # [id number]
== END ==
LOC: RAD 10:20
PROVIDERS: ATTEND Nurse Practitioner Family
DX: R05 Cough (principal); R06.00 Dyspnea, unspecified; Z95.0 Presence of cardiac pacemaker
CPT/HCPCS: 71046

== ENCOUNTER → 2019-08-29 | Outpatient (CLI) | payer MEDICARE, OTHER, MEDICAID ==
[~2019-08-29] MED LIST changes: +DIGO125T3 PO; -HYDR-3812 PO; -LIOT5TAB PO; +LIOT5TAB10 PO; -MECL-106 PO; +MECL-149 PO
--- NOTE | 2019-08-29 14:10 | Diagnostic Imaging Report ---
EXAMINATION: Chest 2 view HISTORY: PAROXYSMAL ATRIAL FIBRILLATION. COMPARISON: Chest radiograph on 04/17/2019. FINDINGS: Stable configuration of the left pectoral dual-chamber pacemaker. The lung volumes are normal. No focal consolidation is seen. No large pleural effusion or pneumothorax is seen. The cardiomediastinal silhouette is normal in size and contour. There is calcified aortic atherosclerotic plaque. No acute osseous abnormality is seen. IMPRESSION: 1. No acute pleuroparenchymal process. Dictated by: Dictated on workstation # [id number]
== END ==
LOC: RAD 13:38
PROVIDERS: ATTEND Nurse Practitioner Family
DX: I48.0 Paroxysmal atrial fibrillation (principal)
CPT/HCPCS: 71046

== ENCOUNTER → 2020-01-21 | Outpatient (CLI) | payer MEDICARE, OTHER, MEDICAID | LOC: LABNPT 07:02 | PROVIDERS: ATTEND Internal Medicine Cardiovascular Disease | DX: I48.0 Paroxysmal atrial fibrillation (principal); Z20.828 Contact with and (suspected) exposure to other viral communicable diseases; Z95.0 Presence of cardiac pacemaker | CPT/HCPCS: 87635 ==

== ENCOUNTER → 2020-11-24 | Outpatient (CLI) | payer MEDICARE, MEDICAID ==
[~2020-11-24] MED LIST changes: +ALPR.25T PO; -AMIO200T4 PO; +AMIO200T6 PO; +AMLO-250 PO; -AMLO5TAB9 PO; -PANT40TA3 PO; +PANT40TA52 PO; +SERT-413 PO
[2020-11-24 07:59] LABS: CREATININE SERUM 1.49 MG/DL (0.60-1.30)
== END ==
LOC: RAD 08:15
PROVIDERS: ATTEND Internal Medicine Cardiovascular Disease
DX: I25.10 Atherosclerotic heart disease of native coronary artery without angina pectoris (principal); I10 Essential (primary) hypertension; E78.2 Mixed hyperlipidemia
CPT/HCPCS: 36415; 82565; 84520

== ENCOUNTER → 2021-02-10 | Outpatient (CLI) | payer MEDICARE, MEDICAID | LOC: CARD 08:48 | PROVIDERS: ATTEND Internal Medicine Cardiovascular Disease | DX: I11.9 Hypertensive heart disease without heart failure (principal); I08.2 Rheumatic disorders of both aortic and tricuspid valves; E78.2 Mixed hyperlipidemia | CPT/HCPCS: 93306 ==

== ENCOUNTER → 2021-02-10 | Outpatient (CLI) | payer MEDICARE, MEDICAID ==
[~2021-02-10] MED LIST changes: -DOXY100C2 PO; +DOXY100C5 PO
== END ==
LOC: CARD 08:27
PROVIDERS: ATTEND Internal Medicine Cardiovascular Disease
DX: Z53.9 Procedure and treatment not carried out, unspecified reason (principal)

== ENCOUNTER 2021-02-15 21:05 | Emergency (ER) | payer MEDICARE, MEDICAID ==
[~2021-02-15] VITALS: Ht 167.7 cm; Wt 81.6 kg
[~2021-02-15 21:05] MED LIST changes: +DOXY100C2 PO; -DOXY100C5 PO
--- NOTE | 2021-02-15 21:19 | ED GU-Female ---
General Stated Complaint: UNABLE TO URINATE Source: patient (PT WITH DEMENTIA), family (DAUGHTER DOES MOST OF TALKING FOR PT) History of Present Illness Date Seen by Provider: Feb 15, 2021 Time Seen by Provider: 21:11 Initial Comments PT ARRIVES VIA POV FROM HOME, WANTS WHEELCHAIR ON ARRIVAL THIS AM, PT HAD ROUTINE OUTPATIENT CT ANGIOGRAM OF CHEST FOR FOLLOW UP ON DILATED ASCENDING AORTA, WHICH WAS UNCHANGED FROM 2019 AT 4.4 CM PT HAS NOT BEEN ABLE TO URINATE SINCE THIS AM PT IS SUPPOSED TO TAKE LASIX EVERY MORNING BUT DID NOT TAKE IT TODAY NO PAIN OR DISCOMFORT IN AREA OF BLADDER DOES NOT HAVE URGE TO VOID JUST GOT CONCERNED BECAUSE SHE HAS NOT URINATED DOES NOT HAVE ANY SYMPTOMS OF ANY KIND STATES SHE HAS HAD 5 GLASSES OF WATER TODAY PRE-PROCEDURE/PRE-CONTRAST LAB DONE THIS AM: BUN 12 CR 1.01 GFR 52 PCP: DR. BADILLO NURSING HOME AIDE: DR. ARAGON Allergies and Home Medications Allergies Coded Allergies: Penicillins (Verified Allergy, Unknown, 01/17/18) codeine (Verified Allergy, Unknown, 09/09/08) morphine (Verified Allergy, Unknown, 09/09/08) Home Medications ALPRAZolam 0.25 Mg Tablet, 0.25 MG PO BID, (Reported) Amiodarone HCl 200 Mg Tablet, 100 MG PO DAILY, (Reported) TAKES 1/2 (200MG) TABLET Amlodipine Besylate 5 Mg Tablet, 5 MG PO DAILY, (Reported) Buspirone HCl 15 Mg Tablet, 15 MG PO BID, (Reported) Cholecalciferol (Vitamin D3) 5,000 Unit Capsule, 5,000 UNIT PO DAILY, (Reported) Cyanocobalamin 1,000 Mcg/Ml Inj, 1,000 MCG INJ EVERY OTHER MONDAY, (Reported) Dabigatran Etexilate Mesylate 150 Mg Capsule, 150 MG PO BID, (Reported) Dexlansoprazole 60 Mg Adolfo., 60 MG PO DAILY, (Reported) Digoxin 125 Mcg Tablet, 125 MCG PO Q48H, (Reported) Donepezil HCl 10 Mg Tablet, 10 MG PO HS, (Reported) Furosemide 40 Mg Tablet, 40 MG PO DAILY, (Reported) Levothyroxine Sodium 137 Mcg Tablet, 125 MCG PO DAILY, (Reported) Liothyronine Sodium 5 Mcg Tablet, 5 MCG PO BID, (Reported) Loratadine 10 Mg Tablet, 10 MG PO DAILY, (Reported) Losartan Potassium 100 Mg Tablet, 100 MG PO DAILY@1230, (Reported) Meloxicam 15 Mg Tablet, 15 MG PO DAILY, (Reported) Metoclopramide HCl 5 Mg Tablet, 2.5 MG PO BID, (Reported) take 1/2 of 5mg tab Metoprolol Tartrate 25 Mg Tablet, 25 MG PO BID, (Reported) [place]-3 Fatty Acids/Fish Oil 1 Each Capsule, 1,000 MG PO DAILY, (Reported) Pantoprazole Sodium 40 Mg Tablet.dr, 40 MG PO HS, (Reported) Potassium Chloride 20 Meq Tab.er.prt, 40 MEQ PO DAILY@1200, (Reported) TAKE 2 (20MEQ) TABS Sertraline HCl 50 Mg Tablet, 50 MG PO DAILY, (Reported) Patient Home Medication List Home Medication List Reviewed: Yes Review of Systems Review of Systems Constitutional: no symptoms reported Respiratory: no symptoms reported Cardiovascular: no symptoms reported Gastrointestinal: no symptoms reported Genitourinary: see HPI Musculoskeletal: no symptoms reported Skin: no symptoms reported Psychiatric/Neurological: No Symptoms Reported Past Syzzhbm-Uojqbb-Bsfwsy Hx Immunizations Up To Date Tetanus Booster (TDap): Unknown Seasonal Allergies Seasonal Allergies: Yes Past Medical History Surgeries: Yes (BILAT KNEE TKR, BILAT HIP REPLACED, HIATAL HERNIA) Abdominal, Gallbladder, Hysterectomy, Joint Replacement, Orthopedic, Pacemaker Respiratory: Yes (Nocternal hypoxia wears oxygen prn) COPD Currently Using CPAP: No Currently Using BIPAP: No Cardiac: Yes (CHF, sinus node dysfunction s/p pacemaker;DILATED ASCENDING AORTA 4.4. CM) Atrial Fibrillation, High Cholesterol, Hypertension Neurological: Yes Dementia Reproductive Disorders: No Sexually Transmitted Disease: No HIV/AIDS: No Genitourinary: Yes Kidney Stones Gastrointestinal: Yes Gastroesophageal Reflux, Polyps, Hiatal Hernia Musculoskeletal: Yes (osteoarthritis) Arthritis Endocrine: Yes (HYPOGLYCEMIA) Hypothyroidsim HEENT: No Cancer: No Psychosocial: Yes Anxiety, Depression Integumentary: No Blood Disorders: No Family Medical History Heart Disease Physical Exam Vital Signs Vital Signs - First Documented 02/15/21 21:12 Temp 36.8 Pulse 77 Resp 18 B/P (MAP) 151/84 (106) Pulse Ox 98 O2 Delivery Room Air Capillary Refill : Height, Weight, BMI Height: 5'6.00" Weight: 170lbs. 0.0oz. [id number]; 27.4 BMI Method:Stated General Appearance: WD/WN, no apparent distress Cardiovascular: regular rate, rhythm Respiratory: normal breath sounds Gastrointestinal: non tender, soft, other (NO PALPABLE BLADDER) Extremities: normal inspection, no pedal edema Neurologic/Psychiatric: no motor/sensory deficits, alert, normal mood/affect Skin: normal color, warm/dry Progress/Results/Core Measures Suspected Sepsis SIRS Temperature: Pulse: Respiratory Rate: Laboratory Tests 02/15/21 21:25: White Blood Count 6.8 Blood Pressure / Mean: Laboratory Tests 02/15/21 21:25: Creatinine 1.13, Platelet Count 171, Total Bilirubin 0.8 Results/Orders Lab Results Laboratory Tests Test 02/15/21 21:25 02/15/21 22:31 Range/Units White Blood Count 6.8 4.3-11.0 10^3/uL Red Blood Count 4.41 3.80-5.11 10^6/uL Hemoglobin 11.8 11.5-16.0 g/dL Hematocrit 38 35-52 % Mean Corpuscular Volume 87 80-99 fL Mean Corpuscular Hemoglobin 27 25-34 pg Mean Corpuscular Hemoglobin Concent 31 L 32-36 g/dL Red Cell Distribution Width 14.6 H 10.0-14.5 % Platelet Count 171 130-400 10^3/uL Mean Platelet Volume 10.1 9.0-12.2 fL Immature Granulocyte % (Auto) 0 % Neutrophils (%) (Auto) 53 42-75 % Lymphocytes (%) (Auto) 35 12-44 % Monocytes (%) (Auto) 8 0-12 % Eosinophils (%) (Auto) 4 0-10 % Basophils (%) (Auto) 1 0-10 % Neutrophils # (Auto) 3.6 1.8-7.8 10^3/uL Lymphocytes # (Auto) 2.3 1.0-4.0 10^3/uL Monocytes # (Auto) 0.5 0.0-1.0 10^3/uL Eosinophils # (Auto) 0.3 0.0-0.3 10^3/uL Basophils # (Auto) 0.1 0.0-0.1 10^3/uL Immature Granulocyte # (Auto) 0.0 0.0-0.1 10^3/uL Sodium Level 131 L 135-145 MMOL/L Potassium Level 5.2 H 3.6-5.0 MMOL/L Chloride Level 103 98-107 MMOL/L Carbon Dioxide Level 18 L 21-32 MMOL/L Anion Gap 10 5-14 MMOL/L Blood Urea Nitrogen 16 7-18 MG/DL Creatinine 1.13 0.60-1.30 MG/DL Estimat Glomerular Filtration Rate 46 BUN/Creatinine Ratio 14 Glucose Level 93 70-105 MG/DL Calcium Level 8.9 8.5-10.1 MG/DL Corrected Calcium 9.1 8.5-10.1 MG/DL Total Bilirubin 0.8 0.1-1.0 MG/DL Aspartate Amino Transf (AST/SGOT) 20 5-34 U/L Alanine Aminotransferase (ALT/SGPT) 18 0-55 U/L Alkaline Phosphatase 69 40-136 U/L B-Type Natriuretic Peptide 192.2 H <100.0 PG/ML Total Protein 6.5 6.4-8.2 GM/DL Albumin 3.7 3.2-4.5 GM/DL Urine Color YELLOW Urine Clarity CLEAR Urine pH 6.0 5-9 Urine Specific [place] <=1.005 1.016-1.022 Urine Protein NEGATIVE NEGATIVE Urine Glucose (UA) NEGATIVE NEGATIVE Urine Ketones NEGATIVE NEGATIVE Urine Nitrite NEGATIVE NEGATIVE Urine Bilirubin NEGATIVE NEGATIVE Urine Urobilinogen 0.2 < = 1.0 MG/DL Urine Leukocyte Esterase NEGATIVE NEGATIVE Urine RBC (Auto) TRACE-I NEGATIVE Urine RBC RARE /HPF Urine WBC 0-2 /HPF Urine Squamous Epithelial Cells 0-2 /HPF Urine Crystals NONE /LPF Urine Bacteria TRACE /HPF Urine Casts NONE /LPF Urine Mucus NEGATIVE /LPF Urine Culture Indicated NO My Orders Orders - JAMES MOTTA DO Bladder Scan (02/15/21 21:10) Ed Iv/Invasive Line Start (02/15/21 21:21) BNP (02/15/21 21:21) Cbc With Automated Diff (02/15/21 21:21) Comprehensive Metabolic Panel (02/15/21 21:21) Ua Culture If Indicated (02/15/21 21:21) Ed Iv/Invasive Line Start (02/15/21 21:21) Lactated Ringers (Lr 1000 Ml Iv Solution (02/15/21 21:30) Ed Iv/Invasive Line Start (8/30/21 22:10) Ns Iv 1000 Ml (Sodium Chloride 0.9%) (02/15/21 22:15) Furosemide Injection (Lasix Injection) (02/15/21 22:15) Medications Given in ED Current Medications Medications Dose Ordered Sig/Thao Route Start Time Stop Time Status Last Admin Dose Admin Furosemide 40 mg ONCE ONCE IVP 02/15/21 22:15 02/15/21 22:16 DC 02/15/21 22:15 40 MG Lactated Ringer's 1,000 ml @ 0 mls/hr Q0M ONCE IV 02/15/21 21:30 02/15/21 21:31 DC 02/15/21 21:37 0 MLS/HR Vital Signs/I&O 02/15/21 02/15/21 21:12 23:30 Temp 36.8 36.8 Pulse 77 70 Resp 18 18 B/P (MAP) 151/84 (106) 142/95 (106) Pulse Ox 98 98 O2 Delivery Room Air Room Air 02/16/21 00:00 Intake Total 1000 ml Output Total 15 ml Balance 985 ml Capillary Refill : Progress Note : Progress Note BLADDER SCAN--15-21 ML URINE IN BLADDER GIVEN IV FLUIDS AND LAB ORDERED GIVEN LASIX AFTER RECEIVING LAB RESULTS PT ABLE TO VOID AFTER APPROXIMATELY 500 ML OF FLUIDS INFUSED Departure Impression Primary Impression: Volume depletion Disposition: 01 HOME, SELF-CARE Condition: Stable Departure-Patient Inst. Decision time for Depature: 22:30 Referrals: CARTER BADILLO MD (PCP/Family) Primary Care Physician Patient Instructions: Dehydration, Adult ED Add. Discharge Instructions: TAKE YOUR MEDICATIONS USUAL INCREASE YOUR FLUID INTAKE--DRINK ENOUGH SO YOU ARE URINATING EVERY 2-3 HOURS WHILE AWAKE FOLLOW UP WITH DR. BADILLO NEEDED JAMES MOTTA DO Feb 15, 2021 21:19
[2021-02-15] MEDS ORDERED: LACTATED RINGERS 1,000 ML IV ONE (21:30)
[2021-02-15 21:41] LABS: BASOPHILS # (AUTO) 0.1 10^3/uL (0.0-0.1); BASOPHILS % (AUTO) 1 % (0-10); EOSINOPHILS # (AUTO) 0.3 10^3/uL (0.0-0.3); EOSINOPHILS % (AUTO) 4 % (0-10); HEMATOCRIT 38 % (35-52); HEMOGLOBIN 11.8 g/dL (11.5-16.0); LYMPHOCYTES # (AUTO) 2.3 10^3/uL (1.0-4.0); LYMPHOCYTES % (AUTO) 35 % (12-44); MEAN CORPUSCULAR HEMOGLOBIN 27 pg (25-34); MEAN CORPUSCULAR HGB CONC 31 g/dL (32-36); MEAN CORPUSCULAR VOLUME 87 fL (80-99); MEAN PLATELET VOLUME 10.1 fL (9.0-12.2); MONOCYTES # (AUTO) 0.5 10^3/uL (0.0-1.0); MONOCYTES % (AUTO) 8 % (0-12); NEUTROPHILS # (AUTO) 3.6 10^3/uL (1.8-7.8); NEUTROPHILS % (AUTO) 53 % (42-75); PLATELET COUNT 171 10^3/uL (130-400); WHITE BLOOD COUNT 6.8 10^3/uL (4.3-11.0)
[2021-02-15 21:58] LABS: ALBUMIN 3.7 GM/DL (3.2-4.5)
[2021-02-15 21:59] LABS: POTASSIUM 5.2 MMOL/L (3.6-5.0)
[2021-02-15 22:00] LABS: CALCIUM 8.9 MG/DL (8.5-10.1)
[2021-02-15 22:01] LABS: TOTAL PROTEIN 6.5 GM/DL (6.4-8.2)
[2021-02-15 22:03] LABS: BILIRUBIN,TOTAL 0.8 MG/DL (0.1-1.0)
[2021-02-15 22:05] LABS: CREATININE SERUM 1.13 MG/DL (0.60-1.30)
[2021-02-15] MEDS ORDERED: NS IV 1000 ML 1,000 ML IV SCH (22:15)
[2021-02-15] MEDS ORDERED: FUROSEMIDE 40 MG/4 ML INJ (LASIX) IVP ONE (22:15)
[2021-02-15 22:35] LABS: BILIRUBIN,URINE NEGATIVE (NEGATIVE); CLARITY,URINE CLEAR; COLOR,URINE YELLOW; GLUCOSE, URINE (UA) NEGATIVE (NEGATIVE); KETONES,URINE NEGATIVE (NEGATIVE); LEUKOCYTE ESTERASE ,URINE NEGATIVE (NEGATIVE); NITRITE,URINE NEGATIVE (NEGATIVE); PROTEIN,URINE NEGATIVE (NEGATIVE)
[2021-02-15 22:42] LABS: BACTERIA,URINE TRACE /HPF; RBC,URINE RARE /HPF; SQUAMOUS EPITHELIAL CELL,UR 0-2 /HPF; WBC,URINE 0-2 /HPF
[2021-02-15 23:30] VITALS: BP 142/95
== END 2021-02-15 23:30 | disposition home or self-care (01) ==
LOC: EDUNIT# 21:05 → ER 21:06
DX: E86.9 Volume depletion, unspecified (principal); I11.0 Hypertensive heart disease with heart failure; I50.9 Heart failure, unspecified; J44.9 Chronic obstructive pulmonary disease, unspecified; K21.9 Gastro-esophageal reflux disease without esophagitis; I48.91 Unspecified atrial fibrillation; F03.90 Unspecified dementia, unspecified severity, without behavioral disturbance, psychotic disturbance, mood disturbance, and anxiety; E03.9 Hypothyroidism, unspecified; F41.9 Anxiety disorder, unspecified; F32.9 Major depressive disorder, single episode, unspecified; Z95.0 Presence of cardiac pacemaker; Z79.890 Hormone replacement therapy; Z79.899 Other long term (current) drug therapy
CPT/HCPCS: 36415; 80053; 81000; 83880; 85025

== ENCOUNTER → 2022-01-03 | Outpatient (CLI) | payer MEDICARE, OTHER, MEDICAID ==
[~2022-01-03] MED LIST changes: -AMIO200T6 PO; +AMIO200T65 PO; +BUPIVACAINE 0.25% 30 ML (SENSORCAINE) VIAL INJ ONE; -DOXY100C2 PO; +DOXY100C5 PO; +ERYT-126 PO; -ERYT-95 PO; +LIDOCAINE 1% INJ 20 ML VIAL INJ ONE; +LIDOCAINE 1% INJ 20 ML VIAL ONE; +POTA-179 PO; +methylPREDNISolone 40 MG/ML (DEPO MEDROL) VIAL IA ONE
--- NOTE | 2022-01-03 16:08 | Diagnostic Imaging Report ---
INDICATION: Left ankle pain. Patient presents for fluoroscopically assisted ankle joint injection. Patient brought to the procedure room and placed on the table in supine position. Anterior ankle on the left was prepped and draped in usual sterile fashion. Small amount 1% lidocaine was utilized for local anesthesia. 20-gauge needle was advanced from an anterior approach into the anterior recess utilizing fluoroscopic assistance. 20 seconds of fluoroscopic time was utilized. A mixture of 80 mg of Depo-Medrol and 3 mL of bupivacaine 0.25% was injected. Needle was removed and hemostasis was obtained. Patient tolerated the procedure well and left the department in stable condition. IMPRESSION: Successful fluoroscopically assisted steroid injection into the left ankle joint, anterior recess. Dictated by: Dictated on workstation # [id number]
== END ==
LOC: RAD 14:45
PROVIDERS: ATTEND Orthopaedic Surgery
DX: M25.572 Pain in left ankle and joints of left foot (principal)
CPT/HCPCS: 20610; 77002

== ENCOUNTER → 2022-03-15 | Outpatient (CLI) | payer MEDICARE, MEDICAID ==
[~2022-03-15] MED LIST changes: -BUPIVACAINE 0.25% 30 ML (SENSORCAINE) VIAL INJ ONE; -LIDOCAINE 1% INJ 20 ML VIAL INJ ONE; -LIDOCAINE 1% INJ 20 ML VIAL ONE; -methylPREDNISolone 40 MG/ML (DEPO MEDROL) VIAL IA ONE
--- NOTE | 2022-03-15 19:35 | Diagnostic Imaging Report ---
EXAM: LUMBOSACRAL SPINE 4 VIEWS OR > INDICATION: Low back pain. COMPARISON: None. FINDINGS: Severe right apex lumbar scoliosis. Demineralization. Diffuse severe spondylotic change. No fractures identified given the limitations. The visualized pelvis is intact. Bilateral THAs are partially visualized. Cardiac pacer. Cholecystectomy clips. IMPRESSION: Severe spondylotic and scoliotic changes in the lumbar spine. Demineralization. No acute radiographic findings. Dictated by: Dictated on workstation # [id number]
== END ==
LOC: RAD 10:55
PROVIDERS: ATTEND Pain Medicine Interventional Pain Medicine
DX: M47.26 Other spondylosis with radiculopathy, lumbar region (principal); M41.86 Other forms of scoliosis, lumbar region
CPT/HCPCS: 72110

== ENCOUNTER → 2022-03-15 | Outpatient (CLI) | payer MEDICARE, MEDICAID | LOC: CARD 11:03 | PROVIDERS: ATTEND Internal Medicine Cardiovascular Disease | DX: I42.9 Cardiomyopathy, unspecified (principal); I35.0 Nonrheumatic aortic (valve) stenosis; I51.7 Cardiomegaly | CPT/HCPCS: 93306 ==

== ENCOUNTER → 2022-03-15 | Outpatient (CLI) | payer MEDICARE, MEDICAID ==
--- NOTE | 2022-03-15 17:01 | Diagnostic Imaging Report ---
PROCEDURE: US Renal Bilateral. TECHNIQUE: Multiple real-time grayscale images were obtained over the kidneys in various projections bilaterally. INDICATION: Urinary urgency. The right kidney measures 8.9 x 3.9 x 4.1 cm and the left kidney measures 8.9 x 3.8 x 4.2 cm. There appears to be a large cyst arising from the left kidney measuring 7.9 x 6.6 x 6.9 cm. This does obscure portions of the left kidney. No definite calculi are seen. There is no hydronephrosis in either kidney. The ureteral jets were not visualized. Prevoid bladder volume is 29 mL. Postvoid volume is 16 mL. IMPRESSION: Large left renal cyst. No other significant abnormality is detected. Dictated by: Dictated on workstation # [id number]
== END ==
LOC: RAD 12:30
PROVIDERS: ATTEND Nurse Practitioner Family
DX: N28.1 Cyst of kidney, acquired (principal)
CPT/HCPCS: 76770

== ENCOUNTER → 2022-03-28 | Outpatient (CLI) | payer MEDICARE, OTHER, MEDICAID ==
--- NOTE | 2022-03-28 12:28 | Diagnostic Imaging Report ---
PROCEDURE: CT urinary tract, rule out kidney stone. TECHNIQUE: Multiple contiguous axial images were obtained through the abdomen and pelvis without the use of intravenous contrast. Auto Exposure Controls were utilized during the CT exam to meet ALARA standards for radiation dose reduction. INDICATION: Left renal cyst. Correlation is made with prior CT from 02/15/2021 and a renal ultrasound from 03/15/2022. The lung bases are clear. There is a large hiatal hernia. The liver is unremarkable. Gallbladder surgically absent. Pancreas and spleen are unremarkable. No adrenal mass is detected. Right kidney is unremarkable. Left kidney does contain a large low-attenuation lesion measuring 7.8 cm AP diameter. This compares with 7.67 cm on prior study from one year earlier. This is most consistent with a cyst. No calculi are seen. No hydronephrosis. Aorta is tortuous but nonaneurysmal. Bowel loops are normal caliber. There is no obstruction. There is diverticulosis of the descending and sigmoid colon but no evidence of acute diverticulitis. There is no ascites. Bladder is decompressed. There is a large amount of artifact through the pelvis from patient's bilateral hip prostheses. IMPRESSION: 1. Large hiatal hernia. 2. Large left renal cyst, stable since prior study from 02/15/2021. 3. Uncomplicated diverticulosis. Dictated by: Dictated on workstation # [id number]
== END ==
LOC: RAD 11:10
PROVIDERS: ATTEND Nurse Practitioner Family
DX: N28.1 Cyst of kidney, acquired (principal); K44.9 Diaphragmatic hernia without obstruction or gangrene; K57.30 Diverticulosis of large intestine without perforation or abscess without bleeding
CPT/HCPCS: 74176

== ENCOUNTER → 2023-02-15 | Outpatient (CLI) | payer MEDICARE, OTHER, MEDICAID ==
[~2023-02-15] MED LIST changes: +HOLD METFORMIN - RECEIVED CONTRAST 20 ML VIAL IV SCH; +IOHEXOL 350 MG/ML 100 ML (OMNIPAQUE 350) VIAL IV ONE; -LOSA100T57 PO; +LOSA100T58 PO; +NS 100 ML (IVPB) BAG IV ONE
[2023-02-15 10:38] LABS: CREATININE SERUM 1.31 MG/DL (0.60-1.30)
--- NOTE | 2023-02-15 15:39 | Diagnostic Imaging Report ---
PROCEDURE: CT angiography of the abdomen and chest with and without contrast. TECHNIQUE: After intravenous administration of contrast, thin section axial CT angiography of the abdomen and chest were obtained. 3D MIP reformats were provided. Auto Exposure Controls were utilized during the CT exam to meet ALARA standards for radiation dose reduction. INDICATION: Aortic dilatation. Correlation is made with prior CT angiogram of the chest and abdomen from 02/15/2021. Aortic aneurysm stable, approximately 2.8 cm as compared with 2.7 cm while measured by similar technique. Sinus of Valsalva is stable at 3.6 cm. The sinotubular junction is stable at 3.1 cm. The mid ascending thoracic aorta is stable at 4.2 cm. Aortic arch and descending thoracic aorta normal caliber. Abdominal aorta is tortuous but nonaneurysmal. No dissection is seen. No pericardial or pleural fluid is identified. No pulmonary infiltrates, nodules or masses are seen. There is a large hiatal hernia. The liver is unremarkable. Gallbladder is surgically absent. Pancreas and spleen are unremarkable. No adrenal mass is identified. The largest cyst upper pole left kidney is stable at approximately 7.5 cm. Small cyst upper pole right kidney is noted. There is no hydronephrosis. Bowel loops are normal caliber. There is diverticulosis of the descending colon. There is no ascites. IMPRESSION: Overall stable CT angiogram of the chest and abdomen when compared with exam from 02/15/2021. Thoracic aorta is stable in caliber. There is no dissection. Dictated by: Dictated on workstation # [id number]
== END ==
LOC: RAD 09:58
PROVIDERS: ATTEND Physician Assistant
DX: I71.20 Thoracic aortic aneurysm, without rupture, unspecified (principal)
CPT/HCPCS: 36415; 71275; 74175; 82565; 84520